=== PATIENT | male | born 1955 | race Caucasian/White ===

== ENCOUNTER 2020-10-17 08:54 | Outpatient (REF) | payer MEDICARE, MEDICAID, SELFPAY ==
--- NOTE | 2020-10-17 | US_ITS ---
EXAMINATION: US ABDOMEN COMPLETE CLINICAL INFORMATION: Alcoholic liver disease. COMPARISON: Abdominal ultrasound dated 06/07/2018 TECHNIQUE: Real-time imaging of the abdominal viscera. Technically difficult study secondary to body habitus and immobility. FINDINGS: PANCREAS: Obscured by overlying bowel gas ABDOMINAL AORTA: Unremarkable INFERIOR VENA CAVA: Visualized portions are normal. LIVER: There is some diffuse increased echogenicity of the liver consistent with fatty infiltration. The liver contour is normal. No focal hepatic lesion. There is no intrahepatic biliary duct dilatation seen. GALLBLADDER: Surgically absent. COMMON BILE DUCT: Not identified RIGHT KIDNEY: No hydronephrosis or renal calculi. The kidney measures 12.5 cm in maximum dimension. There is a simple appearing midpole cyst measuring 1.9 x 1.7 x 1.4 cm in size. LEFT KIDNEY: No hydronephrosis or renal calculi. The kidney measures 12.7 cm in maximum dimension. There is a simple appearing 2.9 x 2.3 x 2.5 cm cyst. SPLEEN: Normal. The spleen measures 12.6 cm in maximum dimension. FREE FLUID: None. US/US abdomen complete IMPRESSION: Bilateral renal cysts. Increased echogenicity of the liver consistent with fatty infiltration.
[2020-10-17 11:31] LABS: MANUAL DIFF FLAG NO
[2020-10-17 11:43] LABS: Basophils Percent Auto 0.5 % (0-2); Eosinophils Absolute Auto 0.3 X10*3/uL (0.0-0.4); Eosinophils Percent Auto 5.5 % (0-4); Hematocrit 44.6 % (42-52); Hemoglobin 14.8 g/dl (14.0-18.0); Imm Gran Abs Auto 0.06 X10*3/uL (0.00-0.03); Imm Gran Pct Auto 1.1 % (0.0-0.4); Lymphocytes Absolute Auto 1.7 X10*3/uL (1.2-4.9); Lymphocytes Percent Auto 29.3 % (20-40); Mean Corpuscular HGB Conc 33.2 g/dl (31.0-36.0); Mean Corpuscular Hemoglobin 32.5 pg (27.0-33.0); Monocytes Absolute Auto 0.5 X10*3/uL (0.1-1.2); Neutrophils Absolute Auto 3.1 X10*3/uL (2.0-8.3); Neutrophils Percent Auto 54.6 % (45-73); Platelet Count 205 X10*3/uL (160-400); Red Blood Count 4.55 X10*6/uL (4.60-5.80); Red Cell Distribution Width 11.4 % (11.0-16.0); White Blood Count 5.6 X10*3/uL (4.8-10.8)
[2020-10-17 11:49] LABS: Prothrombin Time 12.3 SEC (10.8-13.0)
[2020-10-17 12:15] LABS: Alanine Aminotransferase 47 U/L (0-40); Albumin Level 4.6 g/dL (3.5-5.0); Alkaline Phosphatase 64 U/L (39-117); Aspartate Amino Transferase 34 U/L (5-37); Bilirubin Direct 0.2 mg/dL (0.0-0.5); Bilirubin Total 0.5 mg/dL (0.0-1.0); Total Protein 7.4 g/dL (6.5-8.0)
[2020-10-19 12:53] LABS: Alpha Fetoprotein 1.9 ng/mL (<6.1)
== END 2020-10-17 08:55 | disposition home or self-care (01) ==
LOC: HO.US 08:54
PROVIDERS: PCP Internal Medicine; Visit Provider Internal Medicine
DX: K70.30 Alcoholic cirrhosis of liver without ascites (principal); K70.9 Alcoholic liver disease, unspecified; K70.0 Alcoholic fatty liver
CPT/HCPCS: 36415; 76700; 80076; 82105; 85025; 85610

== ENCOUNTER 2020-10-25 09:17 | Outpatient (REF) | payer MEDICARE, MEDICAID, SELFPAY | END 2020-10-25 09:18 | disposition home or self-care (01) | LOC: HO.HAP 09:17 | PROVIDERS: PCP Internal Medicine; Referring Provider Internal Medicine; Visit Provider Internal Medicine | DX: H90.3 Sensorineural hearing loss, bilateral (principal); Z46.1 Encounter for fitting and adjustment of hearing aid | CPT/HCPCS: 99499 ==

== ENCOUNTER 2020-12-12 11:09 | Outpatient (REF) | payer MEDICARE, MEDICAID, SELFPAY ==
--- NOTE | 2020-12-14 10:25 | MHC.AU.P13 ---
Adult Audiological Evaluation Date of Visit: 12/12/20 Help Desk Supervisor Used: Not Applicable Reason for Appointment: Audiologic re-evaluation due to perceived change in hearing ability. Samanta reports he is having difficulty hearing softer sounds and speech than he previously heard. Previous Hearing Test Results: 12/02/2019 [facility] Right ear - Borderline normal to mild sensorineural hearing loss Left ear - Moderate to severe mixed hearing loss. 96% speech discrimination bilaterally Medical History: Medical History: Medical History: History of head trauma with intracranial bleeding. Samanta reports he is taking a new medication, Horizant, for hand tremors. Parkinson's Disease is suspected, but not diagnosed at this time. Hearing Instrument History- Right Ear: Edge Sander: None Hearing Instrument History- Left Ear: Edge Sander: [employer] Model: Digital [place] V 50-13 Serial Number: [id number] Battery Size: 13 Dispensed By: [employer] [facility] Date of Fitting: January 2016 Otoscopy: Right Ear: Partially occluded with cerumen Left Ear: Unremarkable Tympanometry: Tympanometry performed due to: History of middle ear dysfunction Right Ear: Hypercompliant Middle Ear System (Type Ad) Left Ear: Normal Middle Ear System (Type A) Hearing Evaluation: Transducer(s) Used: Insert Earphones Bone Conduction Method: Conventional Audiometry Stimuli Used: Pure Tones Right Ear: Description of Hearing: Borderline normal to mild sensorineural hearing loss Left Ear: Description of Hearing: Moderate to severe mixed hearing loss Speech Recognition Threshold (SRT): Method Used: Not performed at today's visit. Word Discrimination: Method: Recorded Lists Word Lists Used: NU-6 Right Ear: 92% at 65 dB HL Left Ear: 84% at 85 dB HL Comparison: Compared to the most recent evaluation: Hearing is stable. Middle ear dysfunction persists in the right ear. Interpretation of Results: Hearing thresholds and word discrimination ability are stable. Question is increasing hearing difficulties may relate to the recent neurological changes being investigated. Recommendations: Audiological re-evaluation in one year. Hearing aid reprogrammed to Samanta's preference while in the office. He is advised to schedule another appointment if further adjustments are needed. Diagnosis: Primary Diagnosis: H90.3 Bilateral Sensorineural Hearing Loss Secondary Diagnosis: H69.91 Unspecified Eustachian Tube Dysfunction, Right Ear Services Performed: Comprehensive Audiological Evaluation (CPT 62167) Tympanometry (CPT 59735) Signature: Provider: Cisco White, [facility]
== END 2020-12-12 11:10 | disposition home or self-care (01) ==
LOC: HO.SH 11:09
PROVIDERS: Visit Provider Internal Medicine
DX: Z46.1 Encounter for fitting and adjustment of hearing aid (principal); H90.3 Sensorineural hearing loss, bilateral; H69.91 Unspecified Eustachian tube disorder, right ear
CPT/HCPCS: 92557; 92567; 99499

== ENCOUNTER 2020-12-12 14:16 | Outpatient (REF) | payer SELFPAY | END 2020-12-12 14:17 | disposition home or self-care (01) | LOC: HO.SH 14:16 | PROVIDERS: Visit Provider Internal Medicine | DX: Z46.1 Encounter for fitting and adjustment of hearing aid (principal) | CPT/HCPCS: V5267 ==

== ENCOUNTER 2021-01-09 13:27 | Outpatient (REF) | payer MEDICARE, MEDICAID, SELFPAY | END 2021-01-09 13:28 | disposition home or self-care (01) | LOC: HO.HAP 13:27 | PROVIDERS: Visit Provider Internal Medicine | DX: Z46.1 Encounter for fitting and adjustment of hearing aid (principal); H90.8 Mixed conductive and sensorineural hearing loss, unspecified | CPT/HCPCS: V5266 ==

== ENCOUNTER 2021-05-22 11:38 | Inpatient (IN) | payer MEDICARE, MEDICAID, SELFPAY ==
--- NOTE | ~2021-05-22 | CT_ITS ---
EXAMINATION: CT HEAD WITHOUT CONTRAST CLINICAL INFORMATION: Pre-ECT. Prior history intracranial hemorrhage with subdural. COMPARISON: CT head noncontrast 08/06/2010. TECHNIQUE: Contiguous axial imaging was performed from the skull base to vertex without intravenous administration of contrast. Additional 2-D coronal and sagittal reformatted images are generated on the CT workstation and uploaded to PACS. This CT examination was performed using dose optimization techniques as appropriate, variously including the following: *Automated exposure control *Adjustment of mA and/or kV according to patient size (this includes techniques or standardized protocols for targeted exams where dose is matched to indication/reason for exam; i.e. extremities or head) *Use of iterative reconstruction technique DLP: 1009 mGy-cm FINDINGS: Prior right craniotomy again noted. There is interval progressive generalized atrophic changes with asymmetric ventricular dilatation, greater on right. There is right periventricular white matter gliosis/scarring, symmetrically prominent cortical sulci and bilateral prominent fissures and cisterns. There is no mass effect or midline shift. No intracranial hemorrhage or hematoma or extra-axial fluid collection. Benign coarse calcification is seen in the ependyma posterior horn right ventricle and focal benign right dural calcification temporal region. There is no acute territorial infarct or mass lesion. The remainder of the calvarium is intact. There is no pneumocephalus or orbital emphysema. The sinuses and middle ears, and mastoids show no air-fluid levels. CT/CT head/brain wo con IMPRESSION: 1. Status post prior right craniotomy with scattered right periventricular white matter gliosis and compensatory right ventricular dilatation.. 2. Generalized atrophy with ventricular dilatation and prominent cortical sulci and fissures and cisterns. No edema or mass effect. 3. No intracranial hemorrhage or hematoma or extra-axial fluid collection.
[2021-05-22 11:43] VITALS: BP 135/88; PULSE 73; RESP 18; TEMP 36.8; O2SAT 94; BMI 26.4
--- NOTE | 2021-05-22 12:01 | ED_ITS ---
HPI - General Adult General Chief complaint: General Medical <MICHELE Acosta - Last Filed: 05/22/21 15:50> Stated complaint: medical clearance <MICHELE Acosta Last Filed: 05/22/21 15:50> Time Seen by Provider: 05/22/21 13:26 <MICHELE Acosta Last Filed: 05/22/21 15:50> Source: patient <MICHELE Acosta Last Filed: 05/22/21 15:50> Mode of arrival: ambulatory <MICHELE Acosta Last Filed: 05/22/21 15:50> Limitations: no limitations <MICHELE Acosta Last Filed: 05/22/21 15:50> History of Present Illness HPI narrative: patient presents to ED for medical clearance. Patient is a direct admit to the psych floor for depression and came to the ER for EKG and basic lab work. Patient states also chronic back pain exacerbation you to take NSAIDs. Patient denies any recent trauma to the back, IV drug use, urinary/ bowel incontinence, fever, or chills. <MICHELE Acosta Last Filed: 05/22/21 15:50> Related Data Home medications: Home Medications Medication Instructions Recorded Confirmed Tylenol 650 mg PO Q6-8H PRN 05/22/21 05/22/21 albuterol 90 mcg/actuation aerosol See Rx Instructions .ROUTE .COMPLEX 05/22/21 05/22/21 inhaler clotrimazole 1 % topical solution See Rx Instructions .ROUTE 05/22/21 05/22/21 .COMPLEX PRN dextromethorphan-guaifenesin 10 10 ml PO Q6-8H PRN 05/22/21 05/22/21 mg-200 mg/5 mL oral liquid docusate sodium 100 mg capsule 1 cap PO BID 05/22/21 05/22/21 docusate sodium 100 mg capsule See Rx Instructions .ROUTE 05/22/21 05/22/21 .COMPLEX PRN finasteride 5 mg tablet 1 tab PO DAILY 05/22/21 05/22/21 glycerin 1 drp OPHTHALMIC (EYE) Q1-2H PRN 05/22/21 05/22/21 latanoprost 0.005 % eye drops 1 drp OPHTHALMIC (EYE) DAILY 05/22/21 05/22/21 magnesium hydroxide 400 mg/5 mL 2,400 mg PO PRN 05/22/21 oral suspension (Milk of Magnesia) melatonin 5 mg tablet 5 mg PO BEDTIME 05/22/21 05/22/21 pyvjdccclycn-pxsuebih-sprvdf tablet 1 tab PO DAILY 05/22/21 05/22/21 polyethylene glycol 3350 17 17 g PO DAILY 05/22/21 05/22/21 gram/dose oral powder polyethylene glycol 3350 17 17 g PO DAILY PRN 05/22/21 05/22/21 gram/dose oral powder psyllium husk 0.4 gram capsule 0.4 g PO DAILY 05/22/21 05/22/21 (Metamucil) sodium phosphates 19 gram-7 118 ml MA DAILY PRN 05/22/21 05/22/21 gram/118 mL enema (Fleet Enema) trazodone 150 mg tablet 2 tab PO BEDTIME 05/22/21 05/22/21 Previous Rx's Medication Instructions Recorded amlodipine 2.5 mg tablet 7.5 mg PO DAILY 30 Days #90 tab 06/20/21 aripiprazole 5 mg tablet (Abilify) 7.5 mg PO DAILY 30 Days #45 tab 06/20/21 escitalopram oxalate 10 mg tablet 10 mg PO DAILY 30 Days #30 tab 06/20/21 gabapentin 300 mg capsule 300 mg PO TID 30 Days #90 cap 06/20/21 ibuprofen 400 mg tablet 400 mg PO Q6H PRN 30 Days #60 tab 06/20/21 lamotrigine 100 mg tablet 100 mg PO BID 30 Days #60 tab 06/20/21 lisinopril 40 mg tablet 40 mg PO DAILY 30 Days tab 06/20/21 lisinopril 40 mg tablet 40 mg PO DAILY 30 Days #30 tab 06/20/21 lorazepam 0.5 mg tablet 0.5 mg PO Q6H PRN 30 Days #120 tab 06/20/21 MDD 2 mg mirtazapine 30 mg tablet 30 mg PO BEDTIME 30 Days #30 tab 06/20/21 quetiapine 25 mg tablet 25 mg PO BID PRN 30 Days #60 tab 06/20/21 <MICHELE Acosta - Last Filed: 05/22/21 15:50> Allergies/adverse reactions: Allergies Allergy/AdvReac Type Severity Reaction Status Date / Time fentanyl [FENTANYL] Allergy Intermediate unknown Verified 05/22/21 11:43 <MICHELE Acosta Last Filed: 05/22/21 15:50> Review of Systems Review of Systems: Yes all other systems are reviewed and are negative <MICHELE Acosta Last Filed: 05/22/21 15:50> Constitutional: Constitutional: Reports as per HPI and Reports no additional constitutional complaints <MICHELE Acosta Last Filed: 05/22/21 15:50> Eyes: Eyes: Reports as per HPI and Reports no additional eye complaints <MICHELE Acosta Last Filed: 05/22/21 15:50> ENT: Reports system reviewed and no additional complaints, except as documented and Reports as per HPI <MICHELE Acosta Last Filed: 05/22/21 15:50> Cardiovascular: Cardiovascular: Reports as per HPI and Reports no additional cardiovascular complaints <MICHELE Acosta Last Filed: 05/22/21 15:50> Respiratory: Respiratory: Reports as per HPI and Reports no additional respiratory complaints <MICHELE Acosta Last Filed: 05/22/21 15:50> Gastrointestinal: Gastrointestinal: Reports as per HPI and Reports no additional gastrointestinal complaints <MICHELE Acosta Last Filed: 05/22/21 15:50> Genitourinary: Genitourinary: Reports no additional male genitourinary complaints and Reports as per HPI <MICHELE Acosta Last Filed: 05/22/21 15:50> Musculoskeletal: Musculoskeletal: Reports no additional musculoskeletal complaints, Reports as per HPI and Reports back pain ( Chronic) <MICHELE Acosta Last Filed: 05/22/21 15:50> Neurologic: Reports system reviewed and no additional complaints, except as documented and Reports as per HPI <MICHELE Acosta Last Filed: 05/22/21 15:50> Psychiatric: Psychiatric: Reports no additional psychiatric complaints and Reports as per HPI <MICHELE Acosta Last Filed: 05/22/21 15:50> PMFSH Past Medical History Medical History: Medical History Alcohol use disorder, severe, in sustained remission Cognitive and neurobehavioral dysfunction following brain injury Hernia HTN (hypertension) Major depressive disorder, recurrent Major depressive disorder, recurrent severe without psychotic features <MICHELE Acosta - Last Filed: 05/22/21 15:50> Surgical History: Surgical History H/O brain surgery History of hip replacement S/P cholecystectomy <MICHELE Acosta - Last Filed: 05/22/21 15:50> Social History Social History: Social History Household Members: Other Household Members Other:: 3 housemates in senior living Housing: Other Housing Other:: Long Term Patient Tobacco Use Status: Never used Tobacco Advance Directives Date on File: 05/27/19 service: No Sexual orientation: Straight/Heterosexual <MICHELE Acosta - Last Filed: 05/22/21 15:50> Physical Exam Vital Signs: Vital Signs: Last Vital Signs Temp 97.6 F 06/20/21 06:00 Pulse 58 06/20/21 06:00 Resp 06/20/21 06:00 BP 167/83 H 06/20/21 06:00 Pulse Ox 96 06/20/21 06:00 Body Mass Index 26.4 <MICHELE Aocsta - Last Filed: 05/22/21 15:50> Vital Signs: Last Vital Signs Temp 97.6 F 06/20/21 06:00 Pulse 58 06/20/21 06:00 Resp 06/20/21 06:00 BP 167/83 H 06/20/21 06:00 Pulse Ox 96 06/20/21 06:00 Body Mass Index 26.4 <Mayank Tellez MD - Last Filed: 06/26/21 16:25> Const: General: cooperative, healthy appearing, comfortable, no acute distress, well developed, alert, awake and Physically active <MICHELE Acosta - Last Filed: 05/22/21 15:50> HENMT: Head: Yes normal to inspection, Yes No palpable skull fracture present, Yes normocephalic, Yes atraumatic and Yes abrasion <MICHELE Acosta - Last Filed: 05/22/21 15:50> Eyes: General: appearance normal, both eyes and all related structures <MICHELE Acosta Last Filed: 05/22/21 15:50> Neck: Neck: Yes normal visual inspection, Yes full ROM, Yes no lymphadenopathy, Yes no meningeal signs, Yes trachea midline and Yes supple <MICHELE Acosta Last Filed: 05/22/21 15:50> Chest: Chest palpation & inspection: normal inspection of the chest and normal palpation of entire chest wall <MICHELE Acosta Last Filed: 05/22/21 15:50> GI: Inspection: Yes normal to inspection and No abdominal wall ecchymosis <MICHELE Acosta - Last Filed: 05/22/21 15:50> Palpation (GI): Firmness to palpation present (GI), nontender, no guarding and not rigid <MICHELE Acosta Last Filed: 05/22/21 15:50> : General: No CVA tenderness and Yes no CVA tenderness <MICHELE Acosta Last Filed: 05/22/21 15:50> Back/Spine/Pelvis: Back: no CVA tenderness, No CVA tenderness and back tenderness ( lumbar. chronic) <MICHELE Acosta Last Filed: 05/22/21 15:50> Skin: General skin exam: no rashes or lesions noted and elasticity normal <MICHELE Acosta Last Filed: 05/22/21 15:50> Neuro: General: patient oriented x3, gait normal, no meningeal signs and CN's II-XI intact bilaterally <MICHELE Acosta Last Filed: 05/22/21 15:50> Cranial nerves: Yes CN's II-XII intact bilaterally <MICHELE Acosta Last Filed: 05/22/21 15:50> Extrem: General: Yes normal to inspection and Yes full ROM <MICHELE Acosta Last Filed: 05/22/21 15:50> Psych: Appearance: grossly normal, well kempt and not disheveled <MICHELE Acosta Last Filed: 05/22/21 15:50> Course Course Course Narrative: patient will have labs drawn if normal will be sent to . <MICHELE Acosta Last Filed: 05/22/21 15:50> I have reviewed the chart <Mayank Tellez MD - Last Filed: 06/26/21 16:25> Reevaluation(s) Reevaluation #1: Patient medically cleared. Patient labs are normal. EKG negative STEMI <MICHELE Acosta - Last Filed: 05/22/21 15:50> Time: 14:14 <MICHELE Acosta - Last Filed: 05/22/21 15:50> Reevaluation #2: patient going up to [facility] for admission. <MICHELE Acosta - Last Filed: 05/22/21 15:50> Medical Decision Making MDM Narrative Medical decision making narrative: depression <MICHELE Acosta - Last Filed: 05/22/21 15:50> Lab Data Result diagrams: : 05/22/21 12:22 05/23/21 07:25 <MICHELE Acosta - Last Filed: 05/22/21 15:50> Labs: Lab Results 05/22/21 05/22/21 05/22/21 Range/Units 12:22 12:22 12:22 WBC 6.1 (4.8-10.8) X10*3/uL RBC 4.30 L (4.60-5.80) X10*6/uL Hgb 14.4 (14.0-18.0) g/dl Hct 42.3 (42-52) % MCV 98.4 H (80-98) fL MCH 33.5 H (27.0-33.0) pg MCHC 34.0 (31.0-36.0) g/dl RDW 11.4 (11.0-16.0) % Plt Count 159 L (160-400) X10*3/uL MPV 9.8 (9.4-12.4) fL Immature Gran % (Auto) 0.7 H (0.0-0.4) % Neut % (Auto) 59.8 (45-73) % Lymph % (Auto) 25.8 (20-40) % Larimer % (Auto) 8.9 (2-11) % Eos % (Auto) 4.3 H (0-4) % Baso % (Auto) 0.5 (0-2) % Lymph # (Auto) 1.6 (1.2-4.9) X10*3/uL [place] # (Auto) 0.5 (0.1-1.2) X10*3/uL Eos # (Auto) 0.3 (0.0-0.4) X10*3/uL Baso # (Auto) 0.0 (0.0-0.2) X10*3/uL Abs Immat Gran (auto) 0.04 H (0.00-0.03) X10*3/uL Absolute Neuts (auto) 3.6 (2.0-8.3) X10*3/uL Absolute Nucleated RBC 0.000 (0.0-0.012) X10*3/uL Nucleated RBC % (auto) 0.0 (0.0-0.2) /100WBC Sodium 139 (135-145) mmol/L Potassium 4.1 (3.3-5.1) mmol/L Chloride 105 (96-108) mmol/L Carbon Dioxide 24 (22-29) mmol/L Anion Gap 14 (12-20) BUN 13 (9-16) mg/dL Creatinine 0.86 (0.5-1.4) mg/dL Estim Creat Clear Calc 98.2 Estimated GFR > 60 Random Glucose 85 (60-115) mg/dL Calcium 9.4 (8.4-10.2) mg/dL Total Bilirubin 0.9 (0.0-1.0) mg/dL Direct Bilirubin 0.4 (0.0-0.5) mg/dL AST 26 (5-37) U/L ALT 45 H (0-40) U/L Alkaline Phosphatase 81 D (39-117) U/L Total Protein 6.8 (6.5-8.0) g/dL Albumin 4.4 (3.5-5.0) g/dL Ethyl Alcohol < 10 mg/dL COVID-19 (RACHEL) (Negative) COVID-19 Clin Com 05/22/21 Range/Units 14:25 WBC (4.8-10.8) X10*3/uL RBC (4.60-5.80) X10*6/uL Hgb (14.0-18.0) g/dl Hct (42-52) % MCV (80-98) fL MCH (27.0-33.0) pg MCHC (31.0-36.0) g/dl RDW (11.0-16.0) % Plt Count (160-400) X10*3/uL MPV (9.4-12.4) fL Immature Gran % (Auto) (0.0-0.4) % Neut % (Auto) (45-73) % Lymph % (Auto) (20-40) % [place] % (Auto) (2-11) % Eos % (Auto) (0-4) % Baso % (Auto) (0-2) % Lymph # (Auto) (1.2-4.9) X10*3/uL [place] # (Auto) (0.1-1.2) X10*3/uL Eos # (Auto) (0.0-0.4) X10*3/uL Baso # (Auto) (0.0-0.2) X10*3/uL Abs Immat Gran (auto) (0.00-0.03) X10*3/uL Absolute Neuts (auto) (2.0-8.3) X10*3/uL Absolute Nucleated RBC (0.0-0.012) X10*3/uL Nucleated RBC % (auto) (0.0-0.2) /100WBC Sodium (135-145) mmol/L Potassium (3.3-5.1) mmol/L Chloride (96-108) mmol/L Carbon Dioxide (22-29) mmol/L Anion Gap (12-20) BUN (9-16) mg/dL Creatinine (0.5-1.4) mg/dL Estim Creat Clear Calc Estimated GFR Random Glucose (60-115) mg/dL Calcium (8.4-10.2) mg/dL Total Bilirubin (0.0-1.0) mg/dL Direct Bilirubin (0.0-0.5) mg/dL AST (5-37) U/L ALT (0-40) U/L Alkaline Phosphatase (39-117) U/L Total Protein (6.5-8.0) g/dL Albumin (3.5-5.0) g/dL Ethyl Alcohol mg/dL COVID-19 (RACHEL) Negative (Negative) COVID-19 Clin Com See Note <MICHELE Acosta - Last Filed: 05/22/21 15:50> Lab Results 05/22/21 05/22/21 05/22/21 Range/Units 12:22 12:22 12:22 WBC 6.1 (4.8-10.8) X10*3/uL RBC 4.30 L (4.60-5.80) X10*6/uL Hgb 14.4 (14.0-18.0) g/dl Hct 42.3 (42-52) % MCV 98.4 H (80-98) fL MCH 33.5 H (27.0-33.0) pg MCHC 34.0 (31.0-36.0) g/dl RDW 11.4 (11.0-16.0) % Plt Count 159 L (160-400) X10*3/uL MPV 9.8 (9.4-12.4) fL Immature Gran % (Auto) 0.7 H (0.0-0.4) % Neut % (Auto) 59.8 (45-73) % Lymph % (Auto) 25.8 (20-40) % Larimer % (Auto) 8.9 (2-11) % Eos % (Auto) 4.3 H (0-4) % Baso % (Auto) 0.5 (0-2) % Lymph # (Auto) 1.6 (1.2-4.9) X10*3/uL [place] # (Auto) 0.5 (0.1-1.2) X10*3/uL Eos # (Auto) 0.3 (0.0-0.4) X10*3/uL Baso # (Auto) 0.0 (0.0-0.2) X10*3/uL Abs Immat Gran (auto) 0.04 H (0.00-0.03) X10*3/uL Absolute Neuts (auto) 3.6 (2.0-8.3) X10*3/uL Absolute Nucleated RBC 0.000 (0.0-0.012) X10*3/uL Nucleated RBC % (auto) 0.0 (0.0-0.2) /100WBC Sodium 139 (135-145) mmol/L Potassium 4.1 (3.3-5.1) mmol/L Chloride 105 (96-108) mmol/L Carbon Dioxide 24 (22-29) mmol/L Anion Gap 14 (12-20) BUN 13 (9-16) mg/dL Creatinine 0.86 (0.5-1.4) mg/dL Estim Creat Clear Calc 98.2 Estimated GFR > 60 Random Glucose 85 (60-115) mg/dL Calcium 9.4 (8.4-10.2) mg/dL Total Bilirubin 0.9 (0.0-1.0) mg/dL Direct Bilirubin 0.4 (0.0-0.5) mg/dL AST 26 (5-37) U/L ALT 45 H (0-40) U/L Alkaline Phosphatase 81 D (39-117) U/L Total Protein 6.8 (6.5-8.0) g/dL Albumin 4.4 (3.5-5.0) g/dL Ethyl Alcohol < 10 mg/dL COVID-19 (RACHEL) (Negative) COVID-19 Clin Com 05/22/21 Range/Units 14:25 WBC (4.8-10.8) X10*3/uL RBC (4.60-5.80) X10*6/uL Hgb (14.0-18.0) g/dl Hct (42-52) % MCV (80-98) fL MCH (27.0-33.0) pg MCHC (31.0-36.0) g/dl RDW (11.0-16.0) % Plt Count (160-400) X10*3/uL MPV (9.4-12.4) fL Immature Gran % (Auto) (0.0-0.4) % Neut % (Auto) (45-73) % Lymph % (Auto) (20-40) % Larimer % (Auto) (2-11) % Eos % (Auto) (0-4) % Baso % (Auto) (0-2) % Lymph # (Auto) (1.2-4.9) X10*3/uL Larimer # (Auto) (0.1-1.2) X10*3/uL Eos # (Auto) (0.0-0.4) X10*3/uL Baso # (Auto) (0.0-0.2) X10*3/uL Abs Immat Gran (auto) (0.00-0.03) X10*3/uL Absolute Neuts (auto) (2.0-8.3) X10*3/uL Absolute Nucleated RBC (0.0-0.012) X10*3/uL Nucleated RBC % (auto) (0.0-0.2) /100WBC Sodium (135-145) mmol/L Potassium (3.3-5.1) mmol/L Chloride (96-108) mmol/L Carbon Dioxide (22-29) mmol/L Anion Gap (12-20) BUN (9-16) mg/dL Creatinine (0.5-1.4) mg/dL Estim Creat Clear Calc Estimated GFR Random Glucose (60-115) mg/dL Calcium (8.4-10.2) mg/dL Total Bilirubin (0.0-1.0) mg/dL Direct Bilirubin (0.0-0.5) mg/dL AST (5-37) U/L ALT (0-40) U/L Alkaline Phosphatase (39-117) U/L Total Protein (6.5-8.0) g/dL Albumin (3.5-5.0) g/dL Ethyl Alcohol mg/dL COVID-19 (RACHEL) Negative (Negative) COVID-19 Clin Com See Note <Mayank Tellez MD - Last Filed: 06/26/21 16:25> Discharge Plan Discharge Clinical Impression: Depression <MICHELE Acosta - Last Filed: 05/22/21 15:50> Patient Disposition: Admitted As Inpatient <MICHELE Acosta - Last Filed: 05/22/21 15:50> Interventions: Admission Worksheet (ED) Last Done: 05/22/21 15:51 <MICHELE Acosta - Last Filed: 05/22/21 15:50> Discharge Date/Time: 05/22/21 16:08 <MICHELE Acosta - Last Filed: 05/22/21 15:50>
--- NOTE | 2021-05-22 12:02 | ECG_ITS ---
Test Reason : GENERAL MED Blood Pressure : / mmHG Vent. Rate : 067 BPM Atrial Rate : 067 BPM P-R Int : 190 ms QRS Dur : 102 ms QT Int : 430 ms P-R-T Axes : 027 -12 093 degrees QTc Int : 454 ms Normal sinus rhythm Nonspecific ST and T wave abnormality Borderline ECG When compared with ECG of 20-JAN-2011 11:28, No significant change was found Referred By: Anthony Paz Electronically Signed By:SUSHILA FISHER
[2021-05-22] MEDS: Ketorolac Tromethamine 30 MG/ML VIAL IM (12:25)
[2021-05-22 12:34] LABS: MANUAL DIFF FLAG NO
[2021-05-22 12:38] LABS: Basophils Percent Auto 0.5 % (0-2); Eosinophils Absolute Auto 0.3 X10*3/uL (0.0-0.4); Eosinophils Percent Auto 4.3 % (0-4); Hematocrit 42.3 % (42-52); Hemoglobin 14.4 g/dl (14.0-18.0); Imm Gran Abs Auto 0.04 X10*3/uL (0.00-0.03); Imm Gran Pct Auto 0.7 % (0.0-0.4); Lymphocytes Absolute Auto 1.6 X10*3/uL (1.2-4.9); Lymphocytes Percent Auto 25.8 % (20-40); Mean Corpuscular Hemoglobin 33.5 pg (27.0-33.0); Mean Corpuscular Volume 98.4 fL (80-98); Mean Platelet Volume 9.8 fL (9.4-12.4); Monocytes Absolute Auto 0.5 X10*3/uL (0.1-1.2); Monocytes Percent Auto 8.9 % (2-11); Neutrophils Absolute Auto 3.6 X10*3/uL (2.0-8.3); Neutrophils Percent Auto 59.8 % (45-73); Platelet Count 159 X10*3/uL (160-400); Red Cell Distribution Width 11.4 % (11.0-16.0); White Blood Count 6.1 X10*3/uL (4.8-10.8)
[2021-05-22 13:11] LABS: Ethanol < 10 mg/dL
[2021-05-22 13:15] LABS: Alanine Aminotransferase 45 U/L (0-40); Albumin Level 4.4 g/dL (3.5-5.0); Alkaline Phosphatase 81 U/L (39-117); Anion Gap 14 (12-20); Aspartate Amino Transferase 26 U/L (5-37); Bilirubin Direct 0.4 mg/dL (0.0-0.5); Bilirubin Total 0.9 mg/dL (0.0-1.0); Blood Urea Nitrogen 13 mg/dL (9-16); Calcium 9.4 mg/dL (8.4-10.2); Carbon Dioxide 24 mmol/L (22-29); Chloride 105 mmol/L (96-108); Creatinine Clr Calc Pharmacy 98.2; Estimated Glomerular Filt Rate > 60; Glucose Random 85 mg/dL (60-115); Potassium 4.1 mmol/L (3.3-5.1); Sodium 139 mmol/L (135-145); Total Protein 6.8 g/dL (6.5-8.0)
--- NOTE | 2021-05-22 13:31 | PC.NURSE ---
CALL TO S-1. PT MEDICALLY CLEARED
[2021-05-22 14:36] VITALS: BP 158/65; PULSE 71; RESP 16; O2SAT 98
--- NOTE | 2021-05-22 14:46 | PC.NURSE ---
On arrival to ED, patient endorsing SI, reports he has thought of many ways to kill himself. Denies taking any action to end his life. Indicating he feels safe in his current location. 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 Reports he has no active plan to hurt this person and does not own a gun.
[2021-05-22 14:50] LABS: COVID-19 Test Negative (Negative)
[2021-05-22 18:00] VITALS: BP 145/83; PULSE 67; TEMP 36.6; O2SAT 95
--- NOTE | 2021-05-22 21:37 | PC.ADMIT ---
Patient admitted onto the unit ~4:15pm; Patient of Dr. Haskins who was direct admit after being medically cleared in ER. Patient had an outpatient appt yesterday with psychiatrist and in agreement to come inpatient today; patient arranged for his transportation to the hospital today. Signed Conditional Voluntary, arrived onto unit via personal wheelchair. Patient lives in a [facility] residential in [place] for TBI, reports the residential as hell. Patient admitted with a diagnosis of Severe Depression and SI, patient reported thoughts of wanting to wheel his wheelchair into the road in the dark to be hit by a car or push himself in his wheel chair down an escalator. Patient reports a sense of relief being on the unit, and contracts for safety. Patient reported low frustration tolerance and increase in depression over recent months, I have no patience. None. I also have anger issues. reported feeling better being in the hospital and away from residential where he reports not necessarily feeling safe . Denies curent SI/HI during assessment. 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 Patient has slight delay with thought process, fully engaged in admission assessment, able to express himself and make needs known. Hx of ETOH Abuse, reports he no longer drinks. This RN spoke with Duy dempsey supervisor die casting from [facility] and electronically submitted current med list to the unit. Med Rec completed by this RN. Patient placed on 15 minute checks; oriented to the unit.
[2021-05-22] MEDS: LORazepam 0.5 MG TABLET PO (23:01)
[2021-05-22] MEDS: Mirtazapine 15 MG TABLET PO (23:02)
[2021-05-22] MEDS: traZODone HCL 100 MG TABLET 300 MG PO (23:02)
[2021-05-22] MEDS: Gabapentin 100 MG CAPSULE 200 MG PO (23:18)
[2021-05-22] MEDS: Acetaminophen 325 MG TABLET 650 MG PO (23:31)
[2021-05-23] MEDS: Latanoprost 0.005 % Ophth Sol 2.5 ML DROPS 1 DROP EYE-BOTH ×2 (01:23→09:27)
[2021-05-23] MEDS: Acetaminophen 325 MG TABLET 650 MG PO ×2 (05:36→20:57)
[2021-05-23 06:00] VITALS: BP 178/84; PULSE 54; RESP 20; TEMP 36.7; O2SAT 96
[2021-05-23 07:56] LABS: Alanine Aminotransferase 43 U/L (0-40); Albumin Level 4.2 g/dL (3.5-5.0); Alkaline Phosphatase 88 U/L (39-117); Anion Gap 12 (12-20); Aspartate Amino Transferase 26 U/L (5-37); Bilirubin Total 0.6 mg/dL (0.0-1.0); Blood Urea Nitrogen 16 mg/dL (9-16); Calcium 9.4 mg/dL (8.4-10.2); Carbon Dioxide 26 mmol/L (22-29); Chloride 106 mmol/L (96-108); Cholesterol 167 mg/dL; Creatinine Clr Calc Pharmacy 94.9; Estimated Glomerular Filt Rate > 60; Glucose Fasting 91 mg/dL (60-99); HDL Cholesterol 44 mg/dL; LDL Cholesterol Calculated 109 mg/dl; Magnesium 2.2 mg/dL (1.6-2.6); Sodium 140 mmol/L (135-145); Total Protein 6.5 g/dL (6.5-8.0); Triglycerides 74 mg/dL
[2021-05-23 08:16] LABS: Thyroid Stimulating Hormone 0.63 uIU/mL (0.32-4.0)
[2021-05-23 08:43] VITALS: BP 165/83; PULSE 69; RESP 18; TEMP 36.6; O2SAT 96
[2021-05-23 08:43] LABS: Folate 19.9 ng/mL (> or = 4.0); Vitamin B12 757 pg/mL (200-900)
[2021-05-23] MEDS: polyethylene glycoL 3350 17 GM POWD.PACK PO (08:44)
[2021-05-23 08:45] VITALS: BP 165/83; PULSE 69
[2021-05-23] MEDS: lisinopriL 10 MG TABLET PO (08:45)
[2021-05-23] MEDS: LORazepam 0.5 MG TABLET PO ×2 (08:45→16:52)
[2021-05-23] MEDS: ARIPiprazole 10 MG TABLET PO (08:45)
[2021-05-23] MEDS: Escitalopram Oxalate 10 MG TABLET PO (08:45)
[2021-05-23] MEDS: Gabapentin 100 MG CAPSULE 200 MG PO ×3 (08:45→21:02)
[2021-05-23] MEDS: Docusate Sodium 100 MG CAPSULE PO ×2 (08:45→21:02)
[2021-05-23] MEDS: Finasteride 5 MG TABLET PO (08:46)
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
[2021-05-23 18:00] VITALS: BP 161/93; PULSE 69; RESP 16; TEMP 36.4; O2SAT 96
[2021-05-23] MEDS: traZODone HCL 100 MG TABLET 300 MG PO (21:02)
[2021-05-23] MEDS: Mirtazapine 15 MG TABLET PO (21:03)
[2021-05-23] MEDS: LORazepam 1 MG TABLET PO (21:03)
[2021-05-24] MEDS: Acetaminophen 325 MG TABLET 650 MG PO ×3 (05:59→15:27)
[2021-05-24 06:00] VITALS: BP 159/78; PULSE 60; RESP 18; TEMP 36.4; O2SAT 97
[2021-05-24] MEDS: Docusate Sodium 100 MG CAPSULE PO ×2 (09:25→21:24)
[2021-05-24] MEDS: Gabapentin 100 MG CAPSULE 200 MG PO ×3 (09:26→21:25)
[2021-05-24] MEDS: lamoTRIgine 100 MG TABLET 200 MG PO (09:28)
[2021-05-24 09:30] VITALS: BP 159/87; PULSE 85
[2021-05-24] MEDS: ARIPiprazole 10 MG TABLET PO (09:30)
[2021-05-24] MEDS: LORazepam 0.5 MG TABLET PO ×2 (09:30→14:37)
[2021-05-24] MEDS: lisinopriL 10 MG TABLET PO (09:30)
[2021-05-24] MEDS: polyethylene glycoL 3350 17 GM POWD.PACK PO (09:31)
[2021-05-24] MEDS: Escitalopram Oxalate 10 MG TABLET PO (09:32)
[2021-05-24] MEDS: Finasteride 5 MG TABLET PO (09:32)
[2021-05-24 09:35] VITALS: BP 159/87; PULSE 85; O2SAT 95
[2021-05-24 09:37] VITALS: BP 159/87; PULSE 85; RESP 20; O2SAT 95
[2021-05-24] MEDS: Latanoprost 0.005 % Ophth Sol 2.5 ML DROPS 1 DROP EYE-BOTH (09:57)
--- NOTE | 2021-05-24 14:31 | P.CONIM_ITS ---
History of Present Illness Data of Consult Service Date: 05/24/21 Primary Care Provider: Wilmer Enciso MD HPI Reason for consult: htn, pre-ect 65M admitted for depression, consult requested for optimizationa and risk stratefication prior to ECT. patient has history of TBI and subdural hematoma. he also has HTN which has not been well controlled recently. reports BPs in the 160s to 190s. otherwise denies chest pain, had a negative stress test about one year ago. denies sob. Review of Systems Cardiovascular: Cardiovascular: Reports no additional cardiovascular complaints Respiratory: Respiratory: Reports no additional respiratory complaints Gastrointestinal: Gastrointestinal: Reports no additional gastrointestinal complaints [facility] Medical History (Updated 05/24/21 @ 14:33 by Eliezer Khalil MD) Hernia HTN (hypertension) Family history: reviewed and not pertinent Surgical History H/O brain surgery History of hip replacement S/P cholecystectomy Social History Household Members: Other Household Members Other:: 3 housemates in care home Housing: Other Housing Other:: Halfway Patient Tobacco Use Status: Never used Tobacco service: No Sexual orientation: Straight/Heterosexual Meds Allergies Allergy/AdvReac Type Severity Reaction Status Date / Time fentanyl [FENTANYL] Allergy Intermediate unknown Verified 05/22/21 11:43 Active Medications: Current Medications Generic Name Dose Route Start Last Admin Trade Name Freq PRN Reason Stop Dose Admin Acetaminophen 650 mg 05/22/21 17:28 05/24/21 09:56 Acetaminophen 325 Mg Tablet PO 650 mg Q6H PRN Administration Headache/Pain Mild Scale (1-3) Al Hydroxide/Mg Hydroxide 30 ml 05/22/21 17:28 Magnesium Hydrox/Alum Hydrox 30 Ml Oral.Susp PO Q6H PRN Heartburn/Nausea Albuterol Sulfate 2 puff 05/22/21 22:00 Albuterol Sulfate 90 Mcg 8 Gm Inhaler INHALE Q6H PRN Shortness of Breath/Wheezing Aripiprazole 10 mg 05/23/21 09:00 05/24/21 09:30 Aripiprazole 10 Mg Tablet PO 10 mg DAILY TAZ Administration Docusate Sodium 100 mg 05/23/21 09:00 05/24/21 09:25 Docusate Sodium 100 Mg Capsule PO 100 mg BID TAZ Administration Escitalopram Oxalate 10 mg 05/23/21 09:00 05/24/21 09:32 Escitalopram Oxalate 10 Mg Tablet PO 10 mg DAILY TAZ Administration Finasteride 5 mg 05/23/21 09:00 05/24/21 09:32 Finasteride 5 Mg Tablet PO 5 mg DAILY TAZ Administration Gabapentin 200 mg 05/22/21 22:00 05/24/21 09:26 Gabapentin 100 Mg Capsule PO 200 mg TID TAZ Administration Lamotrigine 200 mg 05/23/21 09:00 05/24/21 09:28 Lamotrigine 100 Mg Tablet PO 200 mg DAILY TAZ Administration Latanoprost 1 drop 05/22/21 23:45 05/24/21 09:57 Latanoprost 0.005 % Ophth No 2.5 Ml Drops EYE-BOTH 1 drop DAILY TAZ Administration Lisinopril 10 mg 05/23/21 09:00 05/24/21 09:30 Lisinopril 10 Mg Tablet PO 10 mg DAILY TAZ Administration Protocol Lorazepam 0.5 mg 05/23/21 09:00 05/24/21 09:30 Lorazepam 0.5 Mg Tablet PO 0.5 mg DAILY TAZ Administration Lorazepam 0.5 mg 05/22/21 21:44 05/23/21 08:45 Lorazepam 0.5 Mg Tablet PO 0.5 mg DAILY PRN Administration Anxiety Lorazepam 1 mg 05/23/21 21:00 05/23/21 21:03 Lorazepam 1 Mg Tablet PO 1 mg BEDTIME TAZ Administration Magnesium Hydroxide 30 ml 05/22/21 17:28 Milk Of Magnesia 30 Ml Oral.Susp PO DAILY PRN Constipation Mirtazapine 15 mg 05/22/21 22:15 05/23/21 21:03 Mirtazapine 15 Mg Tablet PO 15 mg BEDTIME TAZ Administration Multivitamins/Minerals 1 tab 05/23/21 09:00 05/24/21 09:31 Multivitamin With Minerals Tablet PO 1 tab DAILY TAZ Administration Polyethylene Glycol 17 gm 05/23/21 09:00 05/24/21 09:31 Polyethylene Glycol 3350 17 Gm Powd.Pack PO 17 gm DAILY TAZ Administration Sodium Biphosphate/Sodium Phosphate 118 ml 05/22/21 21:38 Sodium Phosphate,[place]-Dibasic 133 Ml Enema MD DAILY PRN Constipation Trazodone HCl 300 mg 05/22/21 22:00 05/23/21 21:02 Trazodone Hcl 100 Mg Tablet PO 300 mg BEDTIME TAZ Administration Home Medications Medication Instructions Recorded Confirmed Last Taken Type Tylenol 650 mg PO Q6-8H PRN 05/22/21 05/22/21 Unknown History Tylenol Arthritis Pain 650 mg PO DAILY 05/22/21 05/22/21 Unknown History albuterol [Ventolin] See Rx Instructions .ROUTE .COMPLEX 05/22/21 05/22/21 Unknown History amantadine HCl 1 tab PO BID 05/22/21 05/22/21 Unknown History aripiprazole 1 tab PO DAILY 05/22/21 05/22/21 Unknown History clotrimazole See Rx Instructions .ROUTE 05/22/21 05/22/21 Unknown History .COMPLEX PRN dextromethorphan-guaifenesin 10 ml PO Q6-8H PRN 05/22/21 05/22/21 Unknown History [Robitussin DM Max] docusate sodium 1 cap PO BID 05/22/21 05/22/21 Unknown History docusate sodium See Rx Instructions .ROUTE 05/22/21 05/22/21 Unknown History .COMPLEX PRN escitalopram oxalate 1 tab PO DAILY 05/22/21 05/22/21 Unknown History finasteride 1 tab PO DAILY 05/22/21 05/22/21 Unknown History gabapentin enacarbil [Horizant] 1 tab PO BID 05/22/21 05/22/21 Unknown History glycerin [Artificial Tears 1 drp OPHTHALMIC (EYE) Q1-2H PRN 05/22/21 05/22/21 Unknown History (glycerin)] lamotrigine 1 tab PO DAILY 05/22/21 05/22/21 Unknown History lamotrigine 1 tab PO DAILY 05/22/21 05/22/21 Unknown History latanoprost 1 drp OPHTHALMIC (EYE) DAILY 05/22/21 05/22/21 Unknown History lisinopril 1 tab PO DAILY 05/22/21 05/22/21 Unknown History lorazepam 1 tab PO DAILY 05/22/21 05/22/21 Unknown History lorazepam 1 tab PO DAILY 05/22/21 05/22/21 Unknown History lorazepam 1 tab PO DAILY PRN 05/22/21 05/22/21 Unknown History magnesium hydroxide [Milk of 2,400 mg PO PRN 05/22/21 Unknown History Magnesia] melatonin 5 mg PO BEDTIME 05/22/21 05/22/21 Unknown History cfzcodxkrrze-vhijfnsi-mliszd 1 tab PO DAILY 05/22/21 05/22/21 Unknown History [Centrum Silver] polyethylene glycol 3350 17 g PO DAILY 05/22/21 05/22/21 Unknown History polyethylene glycol 3350 17 g PO DAILY PRN 05/22/21 05/22/21 Unknown History psyllium husk [Metamucil] 0.4 g PO DAILY 05/22/21 05/22/21 Unknown History sodium phosphates [Fleet Enema] 118 ml MD DAILY PRN 05/22/21 05/22/21 Unknown History trazodone 2 tab PO BEDTIME 05/22/21 05/22/21 Unknown History Physical Exam Vital Signs and Narrative: Vital Signs: Last Vital Signs Temp 97.5 F 05/24/21 06:00 Pulse 85 05/24/21 09:37 Resp 20 05/24/21 09:37 BP 159/87 H 05/24/21 09:37 Pulse Ox 95 05/24/21 09:37 Body Mass Index 26.4 General: AO X 3, no acute distress Resp: CTA bilateral CVS: S1,S2,RRR GI: soft, non tender, non distended Psych: appropriate affect Results Labs CBC and Chem 7: 05/22/21 12:22 05/23/21 07:25 Assessment and Plan (1) HTN (hypertension): Status: Acute 65M conuslt for ECT follow up CT head if no signs of increased Intracranial pressures, would pursue ECT as planned, benefits outweigh risks HTN poorly controlled will increase lisinopril to 20mg daily add amlodipine 5mg daily.
[2021-05-24 18:49] VITALS: BP 118/69; PULSE 80; RESP 18; TEMP 36.6; O2SAT 95
[2021-05-24] MEDS: Mirtazapine 15 MG TABLET PO (21:24)
[2021-05-24] MEDS: traZODone HCL 100 MG TABLET 300 MG PO (21:25)
[2021-05-24] MEDS: LORazepam 1 MG TABLET PO (21:25)
--- NOTE | 2021-05-24 23:22 | HO.PSYCHPN ---
Subjective Subjective Date of Service: 05/24/21 Reason For Visit: Depression SI Subjective Notes: Conditional Voluntary Healthcare Proxy: No Guardianship: No Interim History: Patient seen in psychiatric follow-up patient is flat depressed ruminating on losses and his current living situation. Has not responded to mirtazapine Lexapro Abilify. He is agreeable to a course of ECT risks benefits alternatives reviewed. Case also reviewed with Dr. cruz more on a Medication Compliance: Yes Mental Status Exam Mental Status Exam Narrative: Alert, awake, cooperative, in a wheel-chair. He had good eye contact, speech was spontaneous with normal tone, his vocabulary was very good. Mood dysphoric, affect constricted but appropriated. Thought process logical and goal directed, thought content over-inclussive at times but no evidence of paranoia, delusions or hallucinations. Patient despondent hopeless helpless preoccupied with the loss of his brother He admitted suicidal thoughts, he denies homicidal thoughts. Insight good, judgment fair, impulse control limited. Patient denies active suicidal plan in this setting he is agreeable to trial of ECT. He is hopeful not to return to same living arrangement Diagnostics Vital Signs (24Hr): Vital Signs - 24 hr 05/24/21 06:00 05/24/21 09:30 05/24/21 09:35 Temperature 97.5 F Pulse Rate 60 85 85 Respiratory Rate 18 Blood Pressure 159/78 H 159/87 H 159/87 H Pulse Oximetry 97 95 05/24/21 09:37 05/24/21 18:49 Temperature 97.8 F Pulse Rate 85 80 Respiratory Rate 20 18 Blood Pressure 159/87 H 118/69 Pulse Oximetry 95 95 Body Mass Index 26.4 Labs Results: 05/22/21 12:22 05/23/21 07:25 Labs: Laboratory Results - last 48 hr 05/23/21 05/23/21 07:25 07:25 Sodium 140 Potassium 4.0 Chloride 106 Carbon Dioxide 26 Anion Gap 12 BUN 16 Creatinine 0.89 Estim Creat Clear Calc 94.9 Estimated GFR > 60 Fasting Glucose 91 Calcium 9.4 Magnesium 2.2 Total Bilirubin 0.6 AST 26 ALT 43 H Alkaline Phosphatase 88 Total Protein 6.5 Albumin 4.2 Triglycerides 74 Cholesterol 167 LDL Cholesterol, Calc 109 HDL Cholesterol 44 Vitamin B12 757 Folate 19.9 TSH 0.63 Free T4 0.90 Imaging Radiology Impressions: ITS Impressions Head CT 05/24/21 15:15 IMPRESSION: 1. Status post prior right craniotomy with scattered right periventricular white matter gliosis and compensatory right ventricular dilatation.. 2. Generalized atrophy with ventricular dilatation and prominent cortical sulci and fissures and cisterns. No edema or mass effect. 3. No intracranial hemorrhage or hematoma or extra-axial fluid collection. Medications Medications Current Medications Generic Name Dose Route Start Last Admin Trade Name Freq PRN Reason Stop Dose Admin Acetaminophen 650 mg 05/22/21 17:28 05/24/21 15:27 Acetaminophen 325 Mg Tablet PO 650 mg Q6H PRN Administration Headache/Pain Mild Scale (1-3) Al Hydroxide/Mg Hydroxide 30 ml 05/22/21 17:28 Magnesium Hydrox/Alum Hydrox 30 Ml Oral.Susp PO Q6H PRN Heartburn/Nausea Albuterol Sulfate 2 puff 05/22/21 22:00 Albuterol Sulfate 90 Mcg 8 Gm Inhaler INHALE Q6H PRN Shortness of Breath/Wheezing Amlodipine Besylate 5 mg 05/25/21 09:00 Amlodipine Besylate 5 Mg Tablet PO DAILY [facility] Protocol Aripiprazole 10 mg 05/23/21 09:00 05/24/21 09:30 Aripiprazole 10 Mg Tablet PO 10 mg DAILY TAZ Administration Docusate Sodium 100 mg 05/23/21 09:00 05/24/21 21:24 Docusate Sodium 100 Mg Capsule PO 100 mg BID TAZ Administration Escitalopram Oxalate 10 mg 05/23/21 09:00 05/24/21 09:32 Escitalopram Oxalate 10 Mg Tablet PO 10 mg DAILY TAZ Administration Finasteride 5 mg 05/23/21 09:00 05/24/21 09:32 Finasteride 5 Mg Tablet PO 5 mg DAILY TAZ Administration Gabapentin 200 mg 05/22/21 22:00 05/24/21 21:25 Gabapentin 100 Mg Capsule PO 200 mg TID TAZ Administration Lamotrigine 200 mg 05/23/21 09:00 05/24/21 09:28 Lamotrigine 100 Mg Tablet PO 200 mg DAILY TAZ Administration Latanoprost 1 drop 05/22/21 23:45 05/24/21 09:57 Latanoprost 0.005 % Ophth No 2.5 Ml Drops EYE-BOTH 1 drop DAILY TAZ Administration Lisinopril 20 mg 05/25/21 09:00 Lisinopril 20 Mg Tablet PO DAILY TAZ Protocol Lorazepam 0.5 mg 05/23/21 09:00 05/24/21 09:30 Lorazepam 0.5 Mg Tablet PO 0.5 mg DAILY TAZ Administration Lorazepam 0.5 mg 05/22/21 21:44 05/24/21 14:37 Lorazepam 0.5 Mg Tablet PO 0.5 mg DAILY PRN Administration Anxiety Lorazepam 1 mg 05/23/21 21:00 05/24/21 21:25 Lorazepam 1 Mg Tablet PO 1 mg BEDTIME TAZ Administration Magnesium Hydroxide 30 ml 05/22/21 17:28 Milk Of Magnesia 30 Ml Oral.Susp PO DAILY PRN Constipation Mirtazapine 15 mg 05/22/21 22:15 05/24/21 21:24 Mirtazapine 15 Mg Tablet PO 15 mg BEDTIME TAZ Administration Multivitamins/Minerals 1 tab 05/23/21 09:00 05/24/21 09:31 Multivitamin With Minerals Tablet PO 1 tab DAILY TAZ Administration Polyethylene Glycol 17 gm 05/23/21 09:00 05/24/21 09:31 Polyethylene Glycol 3350 17 Gm Powd.Pack PO 17 gm DAILY TAZ Administration Sodium Biphosphate/Sodium Phosphate 118 ml 05/22/21 21:38 Sodium Phosphate,[place]-Dibasic [address] DAILY PRN Constipation Trazodone HCl 300 mg 05/22/21 22:00 05/24/21 21:25 Trazodone Hcl 100 Mg Tablet PO 300 mg BEDTIME TAZ Administration Allergies Allergies Allergy/AdvReac Type Severity Reaction Status Date / Time fentanyl [FENTANYL] Allergy Intermediate unknown Verified 05/22/21 11:43 Assessment & Plan Assessment & Plan (1) HTN (hypertension): Status: Acute Code(s): I10 - Essential (primary) hypertension (2) Major depressive disorder, recurrent severe without psychotic features: Status: Acute Code(s): F33.2 - Major depressive disorder, recurrent severe without psychotic features (3) Cognitive and neurobehavioral dysfunction following brain injury: Status: Acute Code(s): G31.89 - Other specified degenerative diseases of nervous system; F09 - Unspecified mental disorder due to known physiological condition; S06.9X9S - Unspecified intracranial injury with loss of consciousness of unspecified duration, sequela Assessment and Plan: Patient is a 65-year-old male admitted with severe recurrent depression treatment resistant with intrusive suicidal thoughts. Patient agreeable to ECT medical evaluation for ECT and head CT scan completed. No evidence of increased intracranial pressure. Would use right unilateral low pulse with technique risks benefits alternatives reviewed with patient. Hopefully with adequate treatment patient will be better able to function make decisions regarding placement and living issues and improve quality of life. Monitor cognitive response to ECT may need only twice a week treatment. Greater than 50% of the session was spent on counseling and/or coordination of care Reason for contiued inpatient stay Substantial Risk for: harm to self, inability to function and rapid decompensation
[2021-05-25 06:00] VITALS: BP 160/88; PULSE 58; RESP 18; TEMP 36.2; O2SAT 97
[2021-05-25] MEDS: Acetaminophen 325 MG TABLET 650 MG PO (06:13)
[2021-05-25] MEDS: LORazepam 0.5 MG TABLET PO ×2 (09:00→15:07)
[2021-05-25 09:01] VITALS: BP 144/79; PULSE 75
[2021-05-25] MEDS: lisinopriL 20 MG TABLET PO (09:01)
[2021-05-25] MEDS: ARIPiprazole 10 MG TABLET PO (09:02)
[2021-05-25] MEDS: Gabapentin 100 MG CAPSULE 200 MG PO ×2 (09:03→14:58)
[2021-05-25 09:05] VITALS: BP 144/79; PULSE 75
[2021-05-25] MEDS: amLODIPine Besylate 5 MG TABLET PO (09:05)
[2021-05-25] MEDS: Docusate Sodium 100 MG CAPSULE PO ×2 (09:06→21:04)
[2021-05-25] MEDS: lamoTRIgine 100 MG TABLET PO (09:07)
[2021-05-25] MEDS: Escitalopram Oxalate 10 MG TABLET PO (09:07)
[2021-05-25] MEDS: Finasteride 5 MG TABLET PO (09:14)
--- NOTE | 2021-05-25 15:20 | P.PNPSI_ITS ---
Subjective Subjective Date of Service: 05/25/21 Reason For Visit: Depression SI Interim History: Chart reviewed. Pt agrees to ECT. I answered some Qs re ECT. Severe MDD . He acknowledges SI but safe here. Very insightful re MDD and Rx options. Case DW Dr GLOD re med changes/ ECT electrode placement / strategies to reduce post ECT confusion. Decrease gabapentin. Review of Systems Review of Systems Yes all other systems are reviewed and are negative Constitutional: Reports as per HPI and Reports no additional constitutional com plaints Eyes: Reports as per HPI and Reports no additional eye complaints Reports system reviewed and no additional complaints, except as documented and Reports as per HPI Cardiovascular: Reports as per HPI and Reports no additional cardiovascular complaints Respiratory: Reports as per HPI and Reports no additional respiratory complaints Gastrointestinal: Reports as per HPI and Reports no additional gastrointestinal complaints Genitourinary: Reports no additional male genitourinary complaints and Reports as per HPI Musculoskeletal: Reports no additional musculoskeletal complaints, Reports as per HPI and Reports back pain ( Chronic) Reports system reviewed and no additional complaints, except as documented and Reports as per HPI Psychiatric: Reports no additional psychiatric complaints and Reports as per HPI Mental Status Exam Mental Status Exam Narrative: Alert, awake, cooperative, in a wheel-chair. He had good eye contact, speech was spontaneous with normal tone, his vocabulary was very good. Mood dysphoric, affect constricted but appropriated. Thought process logical and goal directed, thought content over-inclussive at times but no evidence of paranoia, delusions or hallucinations. Patient despondent hopeless helpless preoccupied with the loss of his brother He admitted suicidal thoughts, he denies homicidal thoughts. Insight good, judgment fair, impulse control limited. Patient denies active suicidal plan in this setting he is agreeable to trial of ECT. He is hopeful not to return to same living arrangement Diagnostics Vital Signs (24Hr): Vital Signs - 24 hr 05/24/21 18:49 05/25/21 06:00 05/25/21 09:01 Temperature 97.8 F 97.2 F Pulse Rate 80 58 75 Respiratory Rate 18 18 Blood Pressure 118/69 160/88 H 144/79 H Pulse Oximetry 95 97 05/25/21 09:05 Temperature Pulse Rate 75 Respiratory Rate Blood Pressure 144/79 H Pulse Oximetry Body Mass Index 26.4 Labs Results: 05/22/21 12:22 05/23/21 07:25 Imaging Radiology Impressions: ITS Impressions Head CT 05/24/21 15:15 IMPRESSION: 1. Status post prior right craniotomy with scattered right periventricular white matter gliosis and compensatory right ventricular dilatation.. 2. Generalized atrophy with ventricular dilatation and prominent cortical sulci and fissures and cisterns. No edema or mass effect. 3. No intracranial hemorrhage or hematoma or extra-axial fluid collection. Medications Medications Current Medications Generic Name Dose Route Start Last Admin Trade Name Freq PRN Reason Stop Dose Admin Acetaminophen 650 mg 05/22/21 17:28 05/25/21 06:13 Acetaminophen 325 Mg Tablet PO 650 mg Q6H PRN Administration Headache/Pain Mild Scale (1-3) Al Hydroxide/Mg Hydroxide 30 ml 05/22/21 17:28 Magnesium Hydrox/Alum Hydrox 30 Ml Oral.Susp PO Q6H PRN Heartburn/Nausea Albuterol Sulfate 2 puff 05/22/21 22:00 Albuterol Sulfate 90 Mcg 8 Gm Inhaler INHALE Q6H PRN Shortness of Breath/Wheezing Amlodipine Besylate 5 mg 05/25/21 09:00 05/25/21 09:05 Amlodipine Besylate 5 Mg Tablet PO 5 mg DAILY TAZ Administration Protocol Aripiprazole 10 mg 05/23/21 09:00 05/25/21 09:02 Aripiprazole 10 Mg Tablet PO 10 mg DAILY TAZ Administration Docusate Sodium 100 mg 05/23/21 09:00 05/25/21 09:06 Docusate Sodium 100 Mg Capsule PO 100 mg BID TAZ Administration Escitalopram Oxalate 10 mg 05/23/21 09:00 05/25/21 09:07 Escitalopram Oxalate 10 Mg Tablet PO 10 mg DAILY TAZ Administration Finasteride 5 mg 05/23/21 09:00 05/25/21 09:14 Finasteride 5 Mg Tablet PO 5 mg DAILY TAZ Administration Gabapentin 200 mg 05/22/21 22:00 05/25/21 14:58 Gabapentin 100 Mg Capsule PO 200 mg TID TAZ Administration Lamotrigine 100 mg 05/25/21 09:00 05/25/21 09:07 Lamotrigine 100 Mg Tablet PO 100 mg DAILY TAZ Administration Latanoprost 1 drop 05/22/21 23:45 05/24/21 09:57 Latanoprost 0.005 % Ophth No 2.5 Ml Drops EYE-BOTH 1 drop DAILY TAZ Administration Lisinopril 20 mg 05/25/21 09:00 05/25/21 09:01 Lisinopril 20 Mg Tablet PO 20 mg DAILY TAZ Administration Protocol Lorazepam 0.5 mg 05/23/21 09:00 05/25/21 09:00 Lorazepam 0.5 Mg Tablet PO 0.5 mg DAILY TAZ Administration Lorazepam 0.5 mg 05/22/21 21:44 05/25/21 15:07 Lorazepam 0.5 Mg Tablet PO 0.5 mg DAILY PRN Administration Anxiety Lorazepam 1 mg 05/23/21 21:00 05/24/21 21:25 Lorazepam 1 Mg Tablet PO 1 mg BEDTIME TAZ Administration Magnesium Hydroxide 30 ml 05/22/21 17:28 Milk Of Magnesia 30 Ml Oral.Susp PO DAILY PRN Constipation Mirtazapine 15 mg 05/22/21 22:15 05/24/21 21:24 Mirtazapine 15 Mg Tablet PO 15 mg BEDTIME TAZ Administration Multivitamins/Minerals 1 tab 05/23/21 09:00 05/25/21 09:04 Multivitamin With Minerals Tablet PO 1 tab DAILY TAZ Administration Polyethylene Glycol 17 gm 05/25/21 17:00 Polyethylene Glycol 3350 17 Gm Powd.Pack PO DAILY@1700 TAZ Sodium Biphosphate/Sodium Phosphate 118 ml 05/22/21 21:38 Sodium Phosphate,[place]-Dibasic 133 Ml Enema [place] DAILY PRN Constipation Trazodone HCl 300 mg 05/22/21 22:00 05/24/21 21:25 Trazodone Hcl 100 Mg Tablet PO 300 mg BEDTIME TAZ Administration Allergies Allergies Allergy/AdvReac Type Severity Reaction Status Date / Time fentanyl [FENTANYL] Allergy Intermediate unknown Verified 05/22/21 11:43 Assessment & Plan Assessment & Plan (1) HTN (hypertension): Status: Acute Code(s): I10 - Essential (primary) hypertension (2) Major depressive disorder, recurrent severe without psychotic features: Status: Acute Code(s): F33.2 - Major depressive disorder, recurrent severe without psychotic features (3) Cognitive and neurobehavioral dysfunction following brain injury: Status: Acute Code(s): G31.89 - Other specified degenerative diseases of nervous system; F09 - Unspecified mental disorder due to known physiological condition; S06.9X9S - Unspecified intracranial injury with loss of consciousness of unspecified dur ation, sequela Assessment and Plan: Patient is a 65-year-old male admitted with severe recurrent depression treatment resistant with intrusive suicidal thoughts. Patient agreeable to ECT medical evaluation for ECT and head CT scan completed. No evidence of increased intracranial pressure. Would use right unilateral low pulse with technique risks benefits alternatives reviewed with patient. Hopefully with adequate treatment patient will be better able to function make decisions regarding placement and living issues and improve quality of life. Monitor cognitive response to ECT may need only twice a week treatment. Greater than 50% of the session was spent on counseling and/or coordination of care Reason for contiued inpatient stay Substantial Risk for: harm to self
[2021-05-25] MEDS: Latanoprost 0.005 % Ophth Sol 2.5 ML DROPS 1 DROP EYE-BOTH (15:52)
[2021-05-25] MEDS: polyethylene glycoL 3350 17 GM POWD.PACK PO (15:53)
[2021-05-25 18:00] VITALS: PULSE 85; RESP 16; TEMP 36.4; O2SAT 96
[2021-05-25] MEDS: Mirtazapine 15 MG TABLET PO (21:04)
[2021-05-25] MEDS: LORazepam 1 MG TABLET PO (21:04)
[2021-05-25] MEDS: traZODone HCL 100 MG TABLET 300 MG PO (21:04)
[2021-05-26] MEDS: Acetaminophen 325 MG TABLET 650 MG PO (05:22)
[2021-05-26 05:30] VITALS: BP 123/60; PULSE 65; RESP 20; TEMP 37.2; O2SAT 95
[2021-05-26 05:31] VITALS: BP 123/60; PULSE 65; RESP 20; TEMP 37.2; O2SAT 95
--- NOTE | 2021-05-26 07:22 | P.PNPSI_ITS ---
Subjective Subjective Date of Service: 05/26/21 Reason For Visit: Depression SI Interim History: 05/25:Chart reviewed. Pt agrees to ECT. I answered some Qs re ECT. Severe MDD . He acknowledges SI but safe here. Very insightful re MDD and Rx options. Case DANY GOLD re med changes/ ECT electrode placement / strategies to reduce post ECT confusion. Decrease gabapentin. 05/26: Anxious about ECT. Asked X questions. Case DW Dr GOLD. Pt is addon tomorrow. Ct plan Review of Systems Review of Systems Yes all other systems are reviewed and are negative Constitutional: Reports as per HPI and Reports no additional constitutional complaints Eyes: Reports as per HPI and Reports no additional eye complaints Reports system reviewed and no additional complaints, except as documented and Reports as per HPI Cardiovascular: Reports as per HPI and Reports no additional cardiovascular complaints Respiratory: Reports as per HPI and Reports no additional respiratory complaints Gastrointestinal: Reports as per HPI and Reports no additional gastrointestinal complaints Genitourinary: Reports no additional male genitourinary complaints and Reports as per HPI Musculoskeletal: Reports no additional musculoskeletal complaints, Reports as per HPI and Reports back pain ( Chronic) Reports system reviewed and no additional complaints, except as documented and Reports as per HPI Psychiatric: Reports no additional psychiatric complaints and Reports as per HPI Mental Status Exam Mental Status Exam Narrative: Alert, awake, cooperative, in a wheel-chair. He had good eye contact, speech was spontaneous with normal tone, his vocabulary was very good. Mood dysphoric, affect constricted but appropriated. Thought process logical and goal directed, thought content over-inclussive at times but no evidence of paranoia, delusions or hallucinations. Patient despondent hopeless helpless preoccupied with the loss of his brother He admitted suicidal thoughts, he denies homicidal thoughts. Insight good, judgment fair, impulse control limited. Patient denies active suicidal plan in this setting he is agreeable to trial of ECT. He is hopeful not to return to same living arrangement Diagnostics Vital Signs (24Hr): Vital Signs - 24 hr 05/25/21 09:01 05/25/21 09:05 05/25/21 18:00 Temperature 97.5 F Pulse Rate 75 75 85 Respiratory Rate 16 Blood Pressure 144/79 H 144/79 H Pulse Oximetry 96 05/26/21 05:30 05/26/21 05:31 Temperature 98.9 F 98.9 F Pulse Rate 65 65 Respiratory Rate 20 20 Blood Pressure 123/60 123/60 Pulse Oximetry 95 95 Body Mass Index 26.4 Labs Results: 05/22/21 12:22 05/23/21 07:25 Imaging Radiology Impressions: ITS Impressions Head CT 05/24/21 15:15 IMPRESSION: 1. Status post prior right craniotomy with scattered right periventricular white matter gliosis and compensatory right ventricular dilatation.. 2. Generalized atrophy with ventricular dilatation and prominent cortical sulci and fissures and cisterns. No edema or mass effect. 3. No intracranial hemorrhage or hematoma or extra-axial fluid collection. Medications Medications Current Medications Generic Name Dose Route Start Last Admin Trade Name Freq PRN Reason Stop Dose Admin Acetaminophen 650 mg 05/22/21 17:28 05/26/21 05:22 Acetaminophen 325 Mg Tablet PO 650 mg Q6H PRN Administration Headache/Pain Mild Scale (1-3) Al Hydroxide/Mg Hydroxide 30 ml 05/22/21 17:28 Magnesium Hydrox/Alum Hydrox 30 Ml Oral.Susp PO Q6H PRN Heartburn/Nausea Albuterol Sulfate 2 puff 05/22/21 22:00 Albuterol Sulfate 90 Mcg 8 Gm Inhaler INHALE Q6H PRN Shortness of Breath/Wheezing Amlodipine Besylate 5 mg 05/25/21 09:00 05/25/21 09:05 Amlodipine Besylate 5 Mg Tablet PO 5 mg DAILY TAZ Administration Protocol Aripiprazole 10 mg 05/23/21 09:00 05/25/21 09:02 Aripiprazole 10 Mg Tablet PO 10 mg DAILY TAZ Administration Docusate Sodium 100 mg 05/23/21 09:00 05/25/21 21:04 Docusate Sodium 100 Mg Capsule PO 100 mg BID TAZ Administration Escitalopram Oxalate 10 mg 05/23/21 09:00 05/25/21 09:07 Escitalopram Oxalate 10 Mg Tablet PO 10 mg DAILY TAZ Administration Finasteride 5 mg 05/23/21 09:00 05/25/21 09:14 Finasteride 5 Mg Tablet PO 5 mg DAILY TAZ Administration Gabapentin 100 mg 05/26/21 08:30 Gabapentin 100 Mg Capsule PO BID@0830,1330 TAZ Lamotrigine 100 mg 05/25/21 09:00 05/25/21 09:07 Lamotrigine 100 Mg Tablet PO 100 mg DAILY TAZ Administration Latanoprost 1 drop 05/22/21 23:45 05/25/21 15:52 Latanoprost 0.005 % Ophth No 2.5 Ml Drops EYE-BOTH 1 drop DAILY TAZ Administration Lisinopril 20 mg 05/25/21 09:00 05/25/21 09:01 Lisinopril 20 Mg Tablet PO 20 mg DAILY TAZ Administration Protocol Lorazepam 0.5 mg 05/23/21 09:00 05/25/21 09:00 Lorazepam 0.5 Mg Tablet PO 0.5 mg DAILY TAZ Administration Lorazepam 0.5 mg 05/22/21 21:44 05/25/21 15:07 Lorazepam 0.5 Mg Tablet PO 0.5 mg DAILY PRN Administration Anxiety Lorazepam 1 mg 05/23/21 21:00 05/25/21 21:04 Lorazepam 1 Mg Tablet PO 1 mg BEDTIME TAZ Administration Magnesium Hydroxide 30 ml 05/22/21 17:28 Milk Of Magnesia 30 Ml Oral.Susp PO DAILY PRN Constipation Mirtazapine 15 mg 05/22/21 22:15 05/25/21 21:04 Mirtazapine 15 Mg Tablet PO 15 mg BEDTIME TAZ Administration Multivitamins/Minerals 1 tab 05/23/21 09:00 05/25/21 09:04 Multivitamin With Minerals Tablet PO 1 tab DAILY TAZ Administration Polyethylene Glycol 17 gm 05/25/21 17:00 05/25/21 15:53 Polyethylene Glycol 3350 17 Gm Powd.Pack PO 17 gm DAILY@1700 TAZ Administration Sodium Biphosphate/Sodium Phosphate 118 ml 05/22/21 21:38 Sodium Phosphate,[place]-Dibasic 133 Ml Enema [place] DAILY PRN Constipation Trazodone HCl 300 mg 05/22/21 22:00 05/25/21 21:04 Trazodone Hcl 100 Mg Tablet PO 300 mg BEDTIME TAZ Administration Allergies Allergies Allergy/AdvReac Type Severity Reaction Status Date / Time fentanyl [FENTANYL] Allergy Intermediate unknown Verified 05/22/21 11:43 Assessment & Plan Assessment & Plan (1) HTN (hypertension): Status: Acute Code(s): I10 - Essential (primary) hypertension (2) Major depressive disorder, recurrent severe without psychotic features: Status: Acute Code(s): F33.2 - Major depressive disorder, recurrent severe without psychotic features (3) Cognitive and neurobehavioral dysfunction following brain injury: Status: Acute Code(s): G31.89 - Other specified degenerative diseases of nervous system; F09 - Unspecified mental disorder due to known physiological condition; S06.9X9S - Unspecified intracranial injury with loss of consciousness of unspecified duration, sequela Assessment and Plan: Patient is a 65-year-old male admitted with severe recurrent depression thea atment resistant with intrusive suicidal thoughts. Patient agreeable to ECT medical evaluation for ECT and head CT scan completed. No evidence of increased intracranial pressure. Would use right unilateral low pulse with technique risks benefits alternatives reviewed with patient. Hopefully with adequate treatment patient will be better able to function make decisions regarding placement and living issues and improve quality of life. Monitor cognitive response to ECT may need only twice a week treatment. Greater than 50% of the session was spent on counseling and/or coordination of care Reason for contiued inpatient stay Substantial Risk for: harm to self
[2021-05-26] MEDS: LORazepam 0.5 MG TABLET PO ×2 (10:26→13:33)
[2021-05-26 10:27] VITALS: BP 134/70; PULSE 86
[2021-05-26] MEDS: ARIPiprazole 10 MG TABLET PO (10:27)
[2021-05-26] MEDS: lisinopriL 20 MG TABLET PO (10:27)
[2021-05-26] MEDS: lamoTRIgine 100 MG TABLET PO (10:29)
[2021-05-26 10:30] VITALS: BP 134/70; PULSE 86
[2021-05-26] MEDS: Gabapentin 100 MG CAPSULE PO ×2 (10:30→13:33)
[2021-05-26] MEDS: amLODIPine Besylate 5 MG TABLET PO (10:30)
[2021-05-26] MEDS: Docusate Sodium 100 MG CAPSULE PO ×2 (10:31→23:15)
[2021-05-26] MEDS: Escitalopram Oxalate 10 MG TABLET PO (10:31)
[2021-05-26] MEDS: Finasteride 5 MG TABLET PO (10:32)
[2021-05-26] MEDS: Ibuprofen 400 MG TABLET PO (10:41)
[2021-05-26] MEDS: polyethylene glycoL 3350 17 GM POWD.PACK PO (15:15)
[2021-05-26 18:00] VITALS: BP 142/72; PULSE 80; RESP 16; TEMP 36.6; O2SAT 97
[2021-05-26] MEDS: LORazepam 1 MG TABLET PO (19:56)
[2021-05-26] MEDS: Latanoprost 0.005 % Ophth Sol 2.5 ML DROPS 1 DROP EYE-BOTH (23:13)
[2021-05-26] MEDS: Mirtazapine 15 MG TABLET PO (23:15)
[2021-05-26] MEDS: traZODone HCL 100 MG TABLET 300 MG PO (23:15)
[2021-05-27 06:00] VITALS: BP 136/71; PULSE 60; RESP 20; TEMP 36.3; O2SAT 95
[2021-05-27 07:06] LABS: Lamotrigine Lamictal 7.2 mcg/mL (4.0-18.0)
[2021-05-27] MEDS: Acetaminophen 325 MG TABLET 650 MG PO (09:15)
[2021-05-27 09:16] VITALS: BP 135/82; PULSE 66
[2021-05-27] MEDS: Escitalopram Oxalate 10 MG TABLET PO (09:16)
[2021-05-27] MEDS: Finasteride 5 MG TABLET PO (09:16)
[2021-05-27] MEDS: ARIPiprazole 10 MG TABLET PO (09:16)
[2021-05-27] MEDS: Docusate Sodium 100 MG CAPSULE PO ×2 (09:16→21:10)
[2021-05-27] MEDS: amLODIPine Besylate 5 MG TABLET PO (09:16)
[2021-05-27 09:17] VITALS: BP 135/82; PULSE 66
[2021-05-27] MEDS: lisinopriL 20 MG TABLET PO (09:17)
[2021-05-27] MEDS: Ibuprofen 400 MG TABLET PO ×2 (09:35→15:29)
[2021-05-27] MEDS: polyethylene glycoL 3350 17 GM POWD.PACK PO (16:20)
[2021-05-27] MEDS: lamoTRIgine 100 MG TABLET PO (17:28)
[2021-05-27] MEDS: LORazepam 0.5 MG TABLET PO (17:28)
[2021-05-27 17:59] VITALS: BP 131/79; PULSE 76; TEMP 36.6; O2SAT 93
[2021-05-27 18:32] VITALS: BP 131/79
--- NOTE | 2021-05-27 19:57 | HO.PSYCHPN ---
Subjective Subjective Date of Service: 05/27/21 Reason For Visit: Depression SI Subjective Notes: Conditional Voluntary Healthcare Proxy: No Medical Problems Affecting Mental Status: Yes Interim History: patient has been having a difficult day depressed hopeless helpless despondent ECT was scheduled and canceled but can be rescheduled for tomorrow remains ruminating depressed despondent about life situation long history of clinical depression Medication Compliance: Yes Mental Status Exam Mental Status Exam Narrative: Alert, awake, cooperative, in a wheel-chair. He had good eye contact, speech was spontaneous with normal tone, his vocabulary was very good. Mood dysphoric, affect constricted but appropriated. Thought process logical and goal directed, thought content over-inclussive at times but no evidence of paranoia, delusions or hallucinations. Patient despondent hopeless helpless preoccupied with the loss of his brother He admitted suicidal thoughts, he denies homicidal thoughts. Insight good, judgment fair, impulse control limited. Patient denies active suicidal plan in this setting he is agreeable to trial of ECT. He is hopeful not to return to same living arrangement Diagnostics Vital Signs (24Hr): Vital Signs - 24 hr 05/27/21 06:00 05/27/21 09:16 05/27/21 09:17 Temperature 97.3 F Pulse Rate 60 66 66 Respiratory Rate 20 Blood Pressure 136/71 135/82 135/82 Pulse Oximetry 95 05/27/21 17:59 05/27/21 18:32 Temperature 97.8 F Pulse Rate 76 Respiratory Rate Blood Pressure 131/79 131/79 Pulse Oximetry 93 Body Mass Index 26.4 Labs Results: 05/22/21 12:22 05/23/21 07:25 Labs: Laboratory Results - last 48 hr 05/23/21 07:25 Lamotrigine 7.2 Imaging Radiology Impressions: ITS Impressions Head CT 05/24/21 15:15 IMPRESSION: 1. Status post prior right craniotomy with scattered right periventricular white matter gliosis and compensatory right ventricular dilatation.. 2. Generalized atrophy with ventricular dilatation and prominent cortical sulci and fissures and cisterns. No edema or mass effect. 3. No intracranial hemorrhage or hematoma or extra-axial fluid collection. Medications Medications Current Medications Generic Name Dose Route Start Last Admin Trade Name Freq PRN Reason Stop Dose Admin Acetaminophen 650 mg 05/22/21 17:28 05/27/21 09:15 Acetaminophen 325 Mg Tablet PO 650 mg Q6H PRN Administration Headache/Pain Mild Scale (1-3) Al Hydroxide/Mg Hydroxide 30 ml 05/22/21 17:28 Magnesium Hydrox/Alum Hydrox 30 Ml Oral.Susp PO Q6H PRN Heartburn/Nausea Albuterol Sulfate 2 puff 05/22/21 22:00 Albuterol Sulfate 90 Mcg 8 Gm Inhaler INHALE Q6H PRN Shortness of Breath/Wheezing Amlodipine Besylate 5 mg 05/25/21 09:00 05/27/21 09:16 Amlodipine Besylate 5 Mg Tablet PO 5 mg DAILY TAZ Administration Protocol Aripiprazole 10 mg 05/23/21 09:00 05/27/21 09:16 Aripiprazole 10 Mg Tablet PO 10 mg DAILY TAZ Administration Docusate Sodium 100 mg 05/23/21 09:00 05/27/21 09:16 Docusate Sodium 100 Mg Capsule PO 100 mg BID TAZ Administration Escitalopram Oxalate 10 mg 05/23/21 09:00 05/27/21 09:16 Escitalopram Oxalate 10 Mg Tablet PO 10 mg DAILY TAZ Administration Finasteride 5 mg 05/23/21 09:00 05/27/21 09:16 Finasteride 5 Mg Tablet PO 5 mg DAILY TAZ Administration Gabapentin 100 mg 05/26/21 08:30 05/27/21 16:54 Gabapentin 100 Mg Capsule PO Not Given BID@0830,1330 [facility] Ibuprofen 400 mg 05/27/21 09:30 05/27/21 15:29 Ibuprofen 400 Mg Tablet PO 400 mg Q6H PRN Administration Pain, Moderate (Pain Scale 4-6 Lamotrigine 100 mg 05/25/21 09:00 05/27/21 09:32 Lamotrigine 100 Mg Tablet PO Not Given DAILY [facility] Latanoprost 1 drop 05/27/21 21:00 Latanoprost 0.005 % Ophth No 2.5 Ml Drops EYE-BOTH BEDTIME [facility] Lisinopril 20 mg 05/25/21 09:00 05/27/21 09:17 Lisinopril 20 Mg Tablet PO 20 mg DAILY TAZ Administration Protocol Lorazepam 0.5 mg 05/23/21 09:00 05/27/21 09:32 Lorazepam 0.5 Mg Tablet PO Not Given DAILY [facility] Lorazepam 1 mg 05/23/21 21:00 05/26/21 19:56 Lorazepam 1 Mg Tablet PO 1 mg BEDTIME TAZ Administration Lorazepam 0.5 mg 05/26/21 10:20 05/27/21 17:28 Lorazepam 0.5 Mg Tablet PO 0.5 mg DAILY PRN Administration Anxiety Magnesium Hydroxide 30 ml 05/22/21 17:28 Milk Of Magnesia 30 Ml Oral.Susp PO DAILY PRN Constipation Mirtazapine 15 mg 05/22/21 22:15 05/26/21 23:15 Mirtazapine 15 Mg Tablet PO 15 mg BEDTIME TAZ Administration Multivitamins/Minerals 1 tab 05/23/21 09:00 05/27/21 09:16 Multivitamin With Minerals Tablet PO 1 tab DAILY TAZ Administration Polyethylene Glycol 17 gm 05/25/21 17:00 05/27/21 16:20 Polyethylene Glycol 3350 17 Gm Powd.Pack PO 17 gm DAILY@1700 TAZ Administration Sodium Biphosphate/Sodium Phosphate 118 ml 05/22/21 21:38 Sodium Phosphate,[place]-Dibasic 133 Ml Enema [place] DAILY PRN Constipation Trazodone HCl 300 mg 05/22/21 22:00 05/26/21 23:15 Trazodone Hcl 100 Mg Tablet PO 300 mg BEDTIME TAZ Administration Allergies Allergies Allergy/AdvReac Type Severity Reaction Status Date / Time fentanyl [FENTANYL] Allergy Intermediate unknown Verified 05/22/21 11:43 Assessment & Plan Assessment & Plan (1) HTN (hypertension): Status: Acute Code(s): I10 - Essential (primary) hypertension (2) Major depressive disorder, recurrent severe without psychotic features: Status: Acute Code(s): F33.2 - Major depressive disorder, recurrent severe without psychotic features (3) Cognitive and neurobehavioral dysfunction following brain injury: Status: Acute Code(s): G31.89 - Other specified degenerative diseases of nervous system; F09 - Unspecified mental disorder due to known physiological condition; S06.9X9S - Unspecified intracranial injury with loss of consciousness of unspecified duration, sequela Assessment and Plan: Patient is a 65-year-old male admitted with severe recurrent depression treatment resistant with intrusive suicidal thoughts. Patient agreeable to ECT medical evaluation for ECT and head CT scan completed. No evidence of increased intracranial pressure. Would use right unilateral low pulse with technique risks benefits alternatives reviewed with patient. Hopefully with adequate treatment patient will be better able to function make decisions regarding placement and living issues and improve quality of life. Monitor cognitive response to ECT may need only twice a week treatment. case extensively. Discussed with Dr. Christine and Dr. Castano ECT rescheduled for tomorrow Greater than 50% of the session was spent on counseling and/or coordination of care Reason for contiued inpatient stay Substantial Risk for: harm to self, inability to function and rapid decompensation
[2021-05-27] MEDS: traZODone HCL 100 MG TABLET 300 MG PO (21:10)
[2021-05-27] MEDS: Mirtazapine 15 MG TABLET PO (21:10)
[2021-05-27] MEDS: Latanoprost 0.005 % Ophth Sol 2.5 ML DROPS 1 DROP EYE-BOTH (21:14)
[2021-05-28] VITALS (12 sets, daily range): BP systolic 129–204; BP diastolic 65–110; PULSE 58–117; RESP 16–20; TEMP 36–36.9; O2SAT 94–97; BMI 26.4
[2021-05-28] MEDS: Ibuprofen 400 MG TABLET PO ×2 (02:04→14:29)
--- NOTE | 2021-05-28 09:33 | HO.ANESPROP2 ---
[facility] Active Problems Active Problems: All Active Problems (Updated 05/24/21 @ 23:38 by Addy Haskins MD) Major depressive disorder, recurrent severe without psychotic features (Acute) Cognitive and neurobehavioral dysfunction following brain injury (Acute) HTN (hypertension) (Acute) Past Medical History Medical History Alcohol use disorder, severe, in sustained remission Cognitive and neurobehavioral dysfunction following brain injury Hernia HTN (hypertension) Major depressive disorder, recurrent Major depressive disorder, recurrent severe without psychotic features Surgical History Surgical History H/O brain surgery History of hip replacement S/P cholecystectomy Social History Social History Household Members: Other Household Members Other:: 3 housemates in [facility] Housing: Other Housing Other:: Assisted Patient Tobacco Use Status: Never used Tobacco service: No Sexual orientation: Straight/Heterosexual Meds Allergies Allergy/AdvReac Type Severity Reaction Status Date / Time fentanyl [FENTANYL] Allergy Intermediate unknown Verified 05/22/21 11:43 Active Medications: Current Medications Generic Name Dose Route Start Last Admin Trade Name Freq PRN Reason Stop Dose Admin Acetaminophen 650 mg 05/22/21 17:28 05/27/21 09:15 Acetaminophen 325 Mg Tablet PO 650 mg Q6H PRN Administration Headache/Pain Mild Scale (1-3) Al Hydroxide/Mg Hydroxide 30 ml 05/22/21 17:28 Magnesium Hydrox/Alum Hydrox 30 Ml Oral.Susp PO Q6H PRN Heartburn/Nausea Albuterol Sulfate 2 puff 05/22/21 22:00 Albuterol Sulfate 90 Mcg 8 Gm Inhaler INHALE Q6H PRN Shortness of Breath/Wheezing Amlodipine Besylate 5 mg 05/25/21 09:00 05/27/21 09:16 Amlodipine Besylate 5 Mg Tablet PO 5 mg DAILY TAZ Administration Protocol Aripiprazole 10 mg 05/23/21 09:00 05/27/21 09:16 Aripiprazole 10 Mg Tablet PO 10 mg DAILY TAZ Administration Docusate Sodium 100 mg 05/23/21 09:00 05/27/21 21:10 Docusate Sodium 100 Mg Capsule PO 100 mg BID TAZ Administration Escitalopram Oxalate 10 mg 05/23/21 09:00 05/27/21 09:16 Escitalopram Oxalate 10 Mg Tablet PO 10 mg DAILY TAZ Administration Finasteride 5 mg 05/23/21 09:00 05/27/21 09:16 Finasteride 5 Mg Tablet PO 5 mg DAILY TAZ Administration Gabapentin 100 mg 05/26/21 08:30 05/27/21 16:54 Gabapentin 100 Mg Capsule PO Not Given BID@0830,1330 [facility] Ibuprofen 400 mg 05/27/21 09:30 05/28/21 02:04 Ibuprofen 400 Mg Tablet PO 400 mg Q6H PRN Administration Pain, Moderate (Pain Scale 4-6 Lamotrigine 100 mg 05/25/21 09:00 05/27/21 09:32 Lamotrigine 100 Mg Tablet PO Not Given DAILY [facility] Latanoprost 1 drop 05/27/21 21:00 05/27/21 21:14 Latanoprost 0.005 % Ophth No 2.5 Ml Drops EYE-BOTH 1 drop BEDTIME [facility] Administration Lisinopril 20 mg 05/25/21 09:00 05/27/21 09:17 Lisinopril 20 Mg Tablet PO 20 mg DAILY [facility] Administration Protocol Lorazepam 1 mg 05/23/21 21:00 05/27/21 22:01 Lorazepam 1 Mg Tablet PO Not Given BEDTIME TAZ Lorazepam 0.5 mg 05/26/21 10:20 05/27/21 17:28 Lorazepam 0.5 Mg Tablet PO 0.5 mg DAILY PRN Administration Anxiety Magnesium Hydroxide 30 ml 05/22/21 17:28 Milk Of Magnesia 30 Ml Oral.Susp PO DAILY PRN Constipation Mirtazapine 15 mg 05/22/21 22:15 05/27/21 21:10 Mirtazapine 15 Mg Tablet PO 15 mg BEDTIME [facility] Administration Multivitamins/Minerals 1 tab 05/23/21 09:00 05/27/21 09:16 Multivitamin With Minerals Tablet PO 1 tab DAILY [facility] Administration Polyethylene Glycol 17 gm 05/25/21 17:00 05/27/21 16:20 Polyethylene Glycol 3350 17 Gm Powd.Pack PO 17 gm DAILY@1700 [facility] Administration Sodium Biphosphate/Sodium Phosphate 118 ml 05/22/21 21:38 Sodium Phosphate,[place]-Dibasic 133 Ml Enema AL DAILY PRN Constipation Trazodone HCl 300 mg 05/22/21 22:00 05/27/21 21:10 Trazodone Hcl 100 Mg Tablet PO 300 mg BEDTIME TAZ Administration Home Medications Medication Instructions Recorded Confirmed Last Taken Type Tylenol 650 mg PO Q6-8H PRN 05/22/21 05/22/21 Unknown History Tylenol Arthritis Pain 650 mg PO DAILY 05/22/21 05/22/21 Unknown History albuterol [Ventolin] See Rx Instructions .ROUTE .COMPLEX 05/22/21 05/22/21 Unknown History amantadine HCl 1 tab PO BID 05/22/21 05/22/21 Unknown History aripiprazole 1 tab PO DAILY 05/22/21 05/22/21 Unknown History clotrimazole See Rx Instructions .ROUTE 05/22/21 05/22/21 Unknown History .COMPLEX PRN dextromethorphan-guaifenesin 10 ml PO Q6-8H PRN 05/22/21 05/22/21 Unknown History [Robitussin DM Max] docusate sodium 1 cap PO BID 05/22/21 05/22/21 Unknown History docusate sodium See Rx Instructions .ROUTE 05/22/21 05/22/21 Unknown History .COMPLEX PRN escitalopram oxalate 1 tab PO DAILY 05/22/21 05/22/21 Unknown History finasteride 1 tab PO DAILY 05/22/21 05/22/21 Unknown History gabapentin enacarbil [Horizant] 1 tab PO BID 05/22/21 05/22/21 Unknown History glycerin [Artificial Tears 1 drp OPHTHALMIC (EYE) Q1-2H PRN 05/22/21 05/22/21 Unknown History (glycerin)] lamotrigine 1 tab PO DAILY 05/22/21 05/22/21 Unknown History lamotrigine 1 tab PO DAILY 05/22/21 05/22/21 Unknown History latanoprost 1 drp OPHTHALMIC (EYE) DAILY 05/22/21 05/22/21 Unknown History lisinopril 1 tab PO DAILY 05/22/21 05/22/21 Unknown History lorazepam 1 tab PO DAILY 05/22/21 05/22/21 Unknown History lorazepam 1 tab PO DAILY 05/22/21 05/22/21 Unknown History lorazepam 1 tab PO DAILY PRN 05/22/21 05/22/21 Unknown History magnesium hydroxide [Milk of 2,400 mg PO PRN 05/22/21 Unknown History Magnesia] melatonin 5 mg PO BEDTIME 05/22/21 05/22/21 Unknown History gbhkkywivjur-mbrilazx-dxzemk 1 tab PO DAILY 05/22/21 05/22/21 Unknown History [Centrum Silver] polyethylene glycol 3350 17 g PO DAILY 05/22/21 05/22/21 Unknown History polyethylene glycol 3350 17 g PO DAILY PRN 05/22/21 05/22/21 Unknown History psyllium husk [Metamucil] 0.4 g PO DAILY 05/22/21 05/22/21 Unknown History sodium phosphates [Fleet Enema] 118 ml AL DAILY PRN 05/22/21 05/22/21 Unknown History trazodone 2 tab PO BEDTIME 05/22/21 05/22/21 Unknown History Exam Exam Date and Time: May 28, 2021 0933 Height,Weight and Vital Signs: Height 6 ft 2 in Weight 206 lb Last Vital Signs Temp 97.4 F 05/28/21 06:00 Pulse 58 05/28/21 06:00 Resp 20 05/28/21 06:00 BP 133/65 05/28/21 06:00 Pulse Ox 96 05/28/21 06:00 Pertinent Lab Results Pertinent Lab Results: Laboratory Tests 05/22/21 05/22/21 05/22/21 12:22 12:22 12:22 WBC 6.1 RBC 4.30 L Hgb 14.4 Hct 42.3 MCV 98.4 H MCH 33.5 H MCHC 34.0 RDW 11.4 Plt Count 159 L MPV 9.8 Immature Gran % (Auto) 0.7 H Neut % (Auto) 59.8 Lymph % (Auto) 25.8 [place] % (Auto) 8.9 Eos % (Auto) 4.3 H Baso % (Auto) 0.5 Lymph # (Auto) 1.6 [place] # (Auto) 0.5 Eos # (Auto) 0.3 Baso # (Auto) 0.0 Abs Immat Gran (auto) 0.04 H Absolute Neuts (auto) 3.6 Absolute Nucleated RBC 0.000 Nucleated RBC % (auto) 0.0 Sodium 139 Potassium 4.1 Chloride 105 Carbon Dioxide 24 Anion Gap 14 BUN 13 Creatinine 0.86 Estim Creat Clear Calc 98.2 Estimated GFR > 60 Random Glucose 85 Fasting Glucose Calcium 9.4 Magnesium Total Bilirubin 0.9 Direct Bilirubin 0.4 AST 26 ALT 45 H Alkaline Phosphatase 81 D Total Protein 6.8 Albumin 4.4 Triglycerides Cholesterol LDL Cholesterol, Calc HDL Cholesterol Vitamin B12 Folate TSH Free T4 Lamotrigine Ethyl Alcohol < 10 COVID-19 ([facility]) COVID-19 Clin Com 05/22/21 05/23/21 05/23/21 14:25 07:25 07:25 WBC RBC Hgb Hct MCV MCH MCHC RDW Plt Count MPV Immature Gran % (Auto) Neut % (Auto) Lymph % (Auto) [place] % (Auto) Eos % (Auto) Baso % (Auto) Lymph # (Auto) [place] # (Auto) Eos # (Auto) Baso # (Auto) Abs Immat Gran (auto) Absolute Neuts (auto) Absolute Nucleated RBC Nucleated RBC % (auto) Sodium 140 Potassium 4.0 Chloride 106 Carbon Dioxide 26 Anion Gap 12 BUN 16 Creatinine 0.89 Estim Creat Clear Calc 94.9 Estimated GFR > 60 Random Glucose Fasting Glucose 91 Calcium 9.4 Magnesium 2.2 Total Bilirubin 0.6 Direct Bilirubin AST 26 ALT 43 H Alkaline Phosphatase 88 Total Protein 6.5 Albumin 4.2 Triglycerides 74 Cholesterol 167 LDL Cholesterol, Calc 109 HDL Cholesterol 44 Vitamin B12 757 Folate 19.9 TSH 0.63 Free T4 0.90 Lamotrigine Ethyl Alcohol COVID-19 ([facility]) Negative COVID-19 Clin Com See Note 05/23/21 07:25 WBC RBC Hgb Hct MCV MCH MCHC RDW Plt Count MPV Immature Gran % (Auto) Neut % (Auto) Lymph % (Auto) [place] % (Auto) Eos % (Auto) Baso % (Auto) Lymph # (Auto) [place] # (Auto) Eos # (Auto) Baso # (Auto) Abs Immat Gran (auto) Absolute Neuts (auto) Absolute Nucleated RBC Nucleated RBC % (auto) Sodium Potassium Chloride Carbon Dioxide Anion Gap BUN Creatinine Estim Creat Clear Calc Estimated GFR Random Glucose Fasting Glucose Calcium Magnesium Total Bilirubin Direct Bilirubin AST ALT Alkaline Phosphatase Total Protein Albumin Triglycerides Cholesterol LDL Cholesterol, Calc HDL Cholesterol Vitamin B12 Folate TSH Free T4 Lamotrigine 7.2 Ethyl Alcohol COVID-19 ([facility]) COVID-19 Clin Com Airway Mallampati Class: I TM Dist: >3cm Neck ROM: Full Heart: RRR Assessment and Plan Assessment Anesthesia Assessment: Anesthesia Plan Discussed and Chart Reviewed Final Anesthetic Review NPO: Yes ASA Class: II Final Preanesthetic Review: No Changes in Pt Med Stat, Meds/Allgs Chart Reviewed, Consent Obtained/Reviewed and Anes Risks/Benef Reviewed Patient Risk: Low Procedure Risk: Low Anesthetic Plan Anesthetic Plan: GA Disposition: Standard PACU
--- NOTE | 2021-05-28 10:18 | MHC.SHP ---
Pre-Procedural Eval Section A Date of Service: 05/28/21 The patient is an INPATIENT: Yes Changes since office visit: No Cold of Flu in the past 2 weeks, No New Medical Problems, No Changes in Medication and No Patient answered all questions The History & Physical has been completed within 30 days and I have reviewed it.: Yes Section B Chief Complaint: Depression SI Details of Present Illness: The patient suffers of MDD, TBI and other comorbilities, not responding to several medication changes. Now depressed with suicidal ideation with a plan. No psychosisi Relevant Family History (Specify if Yes): Yes Relevant Social History: Other (specify) (TBI that impaired his high functional life) Present Medications: see Short Stay Collaborative assessment Medical History: Significant History (TBI) History of Previous Operations: Relevant previous surgery/procedure and date(s) (Hx of intraparenchymal bleeding, resolved, no evidence of intracraneal pressure.) Allergies: Allergies Allergy/AdvReac Type Severity Reaction Status Date / Time fentanyl [FENTANYL] Allergy Intermediate unknown Verified 05/22/21 11:43 Review of Systems Sugical H&P ROS: Negative: Constitution, Cardiovascular, Respiratory, Neurological, Psychiatric, Hem-Onc, Allergic/Immunologic, Gastrointestinal, Genitourinary, Musculoskeletal, Integumentary, Endocrine and Eyes/Ears/Nose/Throat Exam Surgical H&P Exam: Normal: HEENT, Normal: Heart, Normal: Lungs, Normal: Extremities, Normal: Abdomen, Normal: Skin and Normal: Neurological Plan Diagnosis/Plan: Unchanged I have reviewed the history and physical and performed a pertinent physical examination on my patient. No changes have occurred unless specified.
--- NOTE | 2021-05-28 10:22 | HO.ECTPROC ---
ECT Procedure Note Diagnosis/Treatment Date of Service: 05/28/21 Diagnosis: Major Depressive Disorder Current Treatment Number: 1 Treatment: Series Interval Clinical Notes: Very depressed with suicidal ideation ECT Settings Device: THYMATRON DGx Electrode Placement: Bifrontal Program/Pulse Width: 0.25 Energy Percent: 70 Seizure Duration By Motor Observation (in seconds): 57 Medications Administration General Anesthetic: Etomidate (12) Muscle Relaxant: Succinylcholine (100) Ancillary Medications Analgesics: Torodol - Pre ECT Anti-emetics: Zofran - Pre ECT Miscillaneous Medications: Propofol Airway Management Airway Management: Bag Mask Ventilation Treatment Recommendations No Changes Recommended: No change Pt Tolerated Procedure w/o Issue: Yes
[2021-05-28] MEDS: lisinopriL 20 MG TABLET PO (13:33)
[2021-05-28] MEDS: amLODIPine Besylate 5 MG TABLET PO (13:34)
[2021-05-28] MEDS: LORazepam 0.5 MG TABLET PO (13:35)
[2021-05-28] MEDS: Acetaminophen 325 MG TABLET 650 MG PO (14:29)
[2021-05-28] MEDS: ARIPiprazole 10 MG TABLET PO (14:29)
[2021-05-28] MEDS: Finasteride 5 MG TABLET PO (14:30)
[2021-05-28] MEDS: Docusate Sodium 100 MG CAPSULE PO ×2 (14:30→21:05)
[2021-05-28] MEDS: Escitalopram Oxalate 10 MG TABLET PO (14:30)
[2021-05-28] MEDS: lamoTRIgine 100 MG TABLET PO (14:30)
[2021-05-28] MEDS: Gabapentin 100 MG CAPSULE PO (14:32)
[2021-05-28] MEDS: polyethylene glycoL 3350 17 GM POWD.PACK PO (16:15)
--- NOTE | 2021-05-28 17:12 | P.PNPSI_ITS ---
Subjective Subjective Date of Service: 05/28/21 Reason For Visit: Depression SI Subjective Notes: Conditional Voluntary Guardianship: No Interim History: pt seen post ect alert not overly confused tolerated ect Medication Compliance: Yes Attending Groups: Intermittent Mental Status Exam Mental Status Exam Narrative: Alert, awake, cooperative, in a wheel-chair. He had good eye contact, speech was spontaneous with normal tone, his vocabulary was very good. Mood dysphoric, affect constricted but appropriated. Thought process logical and goal directed, adequate impulse control in that setting Diagnostics Vital Signs (24Hr): Vital Signs - 24 hr 05/27/21 17:59 05/27/21 18:32 05/28/21 06:00 Temperature 97.8 F 97.4 F Pulse Rate 76 58 Respiratory Rate 20 Blood Pressure 131/79 131/79 133/65 Pulse Oximetry 93 96 05/28/21 09:35 05/28/21 11:39 05/28/21 11:45 Temperature 96.8 F 97.7 F Pulse Rate 62 117 H 108 H Respiratory Rate 16 20 20 Blood Pressure 160/91 H 204/107 H 180/110 H Pulse Oximetry 97 96 96 05/28/21 11:49 05/28/21 11:54 05/28/21 12:12 Temperature 97.7 F Pulse Rate 101 H 98 98 Respiratory Rate 20 20 20 Blood Pressure 190/108 H 180/85 H 169/82 H Pulse Oximetry 97 97 96 05/28/21 13:22 05/28/21 13:33 05/28/21 13:34 Temperature 97.8 F Pulse Rate 96 96 96 Respiratory Rate 18 Blood Pressure 157/81 H 157/81 H 157/81 H Pulse Oximetry 95 Body Mass Index 26.4 Labs Results: 05/22/21 12:22 05/23/21 07:25 Labs: Laboratory Results - last 48 hr 05/23/21 07:25 Lamotrigine 7.2 Imaging Radiology Impressions: ITS Impressions Head CT 05/24/21 15:15 IMPRESSION: 1. Status post prior right craniotomy with scattered right periventricular white matter gliosis and compensatory right ventricular dilatation.. 2. Generalized atrophy with ventricular dilatation and prominent cortical sulci and fissures and cisterns. No edema or mass effect. 3. No intracranial hemorrhage or hematoma or extra-axial fluid collection. Medications Medications Current Medications Generic Name Dose Route Start Last Admin Trade Name Freq PRN Reason Stop Dose Admin Acetaminophen 650 mg 05/22/21 17:28 05/28/21 14:29 Acetaminophen 325 Mg Tablet PO 650 mg Q6H PRN Administration Headache/Pain Mild Scale (1-3) Al Hydroxide/Mg Hydroxide 30 ml 05/22/21 17:28 Magnesium Hydrox/Alum Hydrox 30 Ml Oral.Susp PO Q6H PRN Heartburn/Nausea Albuterol Sulfate 2 puff 05/22/21 22:00 Albuterol Sulfate 90 Mcg 8 Gm Inhaler INHALE Q6H PRN Shortness of Breath/Wheezing Amlodipine Besylate 5 mg 05/25/21 09:00 05/28/21 13:34 Amlodipine Besylate 5 Mg Tablet PO 5 mg DAILY TAZ Administration Protocol Aripiprazole 10 mg 05/23/21 09:00 05/28/21 14:29 Aripiprazole 10 Mg Tablet PO 10 mg DAILY TAZ Administration Docusate Sodium 100 mg 05/23/21 09:00 05/28/21 14:30 Docusate Sodium 100 Mg Capsule PO 100 mg BID TAZ Administration Escitalopram Oxalate 10 mg 05/23/21 09:00 05/28/21 14:30 Escitalopram Oxalate 10 Mg Tablet PO 10 mg DAILY TAZ Administration Finasteride 5 mg 05/23/21 09:00 05/28/21 14:30 Finasteride 5 Mg Tablet PO 5 mg DAILY TAZ Administration Gabapentin 100 mg 05/26/21 08:30 05/28/21 14:41 Gabapentin 100 Mg Capsule PO Not Given BID@0830,1330 [facility] Ibuprofen 400 mg 05/27/21 09:30 05/28/21 14:29 Ibuprofen 400 Mg Tablet PO 400 mg Q6H PRN Administration Pain, Moderate (Pain Scale 4-6 Lamotrigine 100 mg 05/25/21 09:00 05/28/21 14:30 Lamotrigine 100 Mg Tablet PO 100 mg DAILY TAZ Administration Latanoprost 1 drop 05/27/21 21:00 05/27/21 21:14 Latanoprost 0.005 % Ophth No 2.5 Ml Drops EYE-BOTH 1 drop BEDTIME TAZ Administration Lisinopril 20 mg 05/25/21 09:00 05/28/21 13:33 Lisinopril 20 Mg Tablet PO 20 mg DAILY TAZ Administration Protocol Lorazepam 1 mg 05/23/21 21:00 05/27/21 22:01 Lorazepam 1 Mg Tablet PO Not Given BEDTIME TAZ Lorazepam 0.5 mg 05/26/21 10:20 05/28/21 13:35 Lorazepam 0.5 Mg Tablet PO 0.5 mg DAILY PRN Administration Anxiety Magnesium Hydroxide 30 ml 05/22/21 17:28 Milk Of Magnesia 30 Ml Oral.Susp PO DAILY PRN Constipation Mirtazapine 15 mg 05/22/21 22:15 05/27/21 21:10 Mirtazapine 15 Mg Tablet PO 15 mg BEDTIME TAZ Administration Multivitamins/Minerals 1 tab 05/23/21 09:00 05/28/21 14:31 Multivitamin With Minerals Tablet PO 1 tab DAILY TAZ Administration Ondansetron HCl 4 mg 05/28/21 13:46 Ondansetron Odt 4 Mg Tab.Rapdis TRANSLINGU Q8H PRN Nausea and Vomiting Polyethylene Glycol 17 gm 05/25/21 17:00 05/28/21 16:15 Polyethylene Glycol 3350 17 Gm Powd.Pack PO 17 gm DAILY@1700 TAZ Administration Sodium Biphosphate/Sodium Phosphate 118 ml 05/22/21 21:38 Sodium Phosphate,[place]-Dibasic 133 Ml Enema ID DAILY PRN Constipation Trazodone HCl 300 mg 05/22/21 22:00 05/27/21 21:10 Trazodone Hcl 100 Mg Tablet PO 300 mg BEDTIME TAZ Administration Allergies Allergies Allergy/AdvReac Type Severity Reaction Status Date / Time fentanyl [FENTANYL] Allergy Intermediate unknown Verified 05/22/21 11:43 Assessment & Plan Assessment & Plan (1) HTN (hypertension): Status: Acute Code(s): I10 - Essential (primary) hypertension (2) Major depressive disorder, recurrent severe without psychotic features: Status: Acute Code(s): F33.2 - Major depressive disorder, recurrent severe without psychotic features (3) Cognitive and neurobehavioral dysfunction following brain injury: Status: Acute Code(s): G31.89 - Other specified degenerative diseases of nervous system; F09 - Unspecified mental disorder due to known physiological condition; S06.9X9S - Unspecified intracranial injury with loss of consciousness of unspecified duration, sequela Assessment and Plan: tolerated first ect continue as tolerated Greater than 50% of the session was spent on counseling and/or coordination of care Reason for contiued inpatient stay Substantial Risk for: harm to self, inability to function and rapid decompensation
--- NOTE | 2021-05-28 19:09 | PC.NURSE ---
[employer] [facility] [employer] [phone], [facility], [place]
--- NOTE | 2021-05-28 19:11 | PC.NURSE ---
Samanta states Just the mere thought of that house [long-term] makes me want to . I'm going to be trapped there and I don't want to be. The big thing is environment I need to be surrounded by people who are competent and give a hoot. I need to feel inspired. Right now I just feel like I am taking up space.
[2021-05-28] MEDS: Latanoprost 0.005 % Ophth Sol 2.5 ML DROPS 1 DROP EYE-BOTH (19:53)
[2021-05-28] MEDS: Melatonin 3 MG TABLET 6 MG PO (21:11)
[2021-05-28] MEDS: traZODone HCL 100 MG TABLET 300 MG PO (21:11)
[2021-05-28] MEDS: Mirtazapine 15 MG TABLET PO (21:11)
[2021-05-28] MEDS: LORazepam 1 MG TABLET PO (21:36)
[2021-05-29 06:00] VITALS: BP 144/65; PULSE 63; RESP 18; TEMP 36.2; O2SAT 94
[2021-05-29] MEDS: Ibuprofen 400 MG TABLET PO (06:11)
[2021-05-29 09:03] VITALS: BP 139/63; PULSE 69
[2021-05-29] MEDS: Gabapentin 100 MG CAPSULE PO ×2 (09:03→13:43)
[2021-05-29] MEDS: amLODIPine Besylate 5 MG TABLET PO (09:03)
[2021-05-29 09:04] VITALS: BP 139/63; PULSE 69
[2021-05-29] MEDS: Docusate Sodium 100 MG CAPSULE PO ×2 (09:04→20:45)
[2021-05-29] MEDS: ARIPiprazole 10 MG TABLET PO (09:04)
[2021-05-29] MEDS: Escitalopram Oxalate 10 MG TABLET PO (09:04)
[2021-05-29] MEDS: lamoTRIgine 100 MG TABLET PO (09:04)
[2021-05-29] MEDS: Finasteride 5 MG TABLET PO (09:04)
[2021-05-29] MEDS: lisinopriL 20 MG TABLET PO (09:04)
[2021-05-29] MEDS: LORazepam 0.5 MG TABLET PO (09:05)
[2021-05-29] MEDS: Acetaminophen 325 MG TABLET 650 MG PO (13:43)
--- NOTE | 2021-05-29 16:01 | PC.NURSE ---
Pt participated in [facility] screen on this date. Pt unable to engage in visuospatial aspect of screen due to difficulty with handgrip/ fine motor coordination and decreased vision. Pt otherwise had good performance in naming, memory, attention, abstraction, delayed recall and orientation. Some difficulty noted on language and word fluency, pt stated feeling too much under pressure . Unable to grade screen as regular [facility] version due to invalidation on visuospatial section, this engineering writer graded screen as [facility] for the blind, scored 19/22, indicating cognition is within normal limits
[2021-05-29] MEDS: polyethylene glycoL 3350 17 GM POWD.PACK PO (16:38)
[2021-05-29 18:00] VITALS: BP 132/72; PULSE 73; RESP 18; TEMP 36.6; O2SAT 94
[2021-05-29] MEDS: Melatonin 3 MG TABLET 6 MG PO (20:45)
[2021-05-29] MEDS: traZODone HCL 100 MG TABLET 300 MG PO (20:45)
[2021-05-29] MEDS: LORazepam 1 MG TABLET PO (20:45)
[2021-05-29] MEDS: Mirtazapine 15 MG TABLET PO (20:45)
[2021-05-29] MEDS: Latanoprost 0.005 % Ophth Sol 2.5 ML DROPS 1 DROP EYE-BOTH (20:50)
--- NOTE | 2021-05-29 22:04 | P.PNPSI_ITS ---
Subjective Subjective Date of Service: 05/29/21 Reason For Visit: Depression SI Subjective Notes: Conditional Voluntary Guardianship: No Medical Problems Affecting Mental Status: Yes Interim History: The patient is depressed but is struggling to come up with strategies to manage his existence. [place] per social work helping with possible discharge plans. Patient after 1st ECT did have significant muscular discomfort most likely reaction to succinylcholine will discuss with Anesthesia Medication Compliance: Yes Mental Status Exam Mental Status Exam Narrative: Alert, awake, cooperative, in a wheel-chair. He had good eye contact, speech was spontaneous with normal tone slowed mentation somewhat monotone . Mood dysphoric, affect constricted but appropriate, Thought process logical and goal directed, adequate impulse control in this setting unsafe if were to return to living situation. Patient educated regarding ECT expectations and treatment plan. He was able to take in this information Diagnostics Vital Signs (24Hr): Vital Signs - 24 hr 05/29/21 06:00 05/29/21 09:03 05/29/21 09:04 Temperature 97.1 F Pulse Rate 63 69 69 Respiratory Rate 18 Blood Pressure 144/65 H 139/63 139/63 Pulse Oximetry 94 05/29/21 18:00 Temperature 97.9 F Pulse Rate 73 Respiratory Rate 18 Blood Pressure 132/72 Pulse Oximetry 94 Body Mass Index 26.4 Labs Results: 05/22/21 12:22 05/23/21 07:25 Imaging Radiology Impressions: ITS Impressions Head CT 05/24/21 15:15 IMPRESSION: 1. Status post prior right craniotomy with scattered right periventricular white matter gliosis and compensatory right ventricular dilatation.. 2. Generalized atrophy with ventricular dilatation and prominent cortical sulci and fissures and cisterns. No edema or mass effect. 3. No intracranial hemorrhage or hematoma or extra-axial fluid collection. Medications Medications Current Medications Generic Name Dose Route Start Last Admin Trade Name Freq PRN Reason Stop Dose Admin Acetaminophen 650 mg 05/22/21 17:28 05/29/21 13:43 Acetaminophen 325 Mg Tablet PO 650 mg Q6H PRN Administration Headache/Pain Mild Scale (1-3) Al Hydroxide/Mg Hydroxide 30 ml 05/22/21 17:28 Magnesium Hydrox/Alum Hydrox 30 Ml Oral.Susp PO Q6H PRN Heartburn/Nausea Albuterol Sulfate 2 puff 05/22/21 22:00 Albuterol Sulfate 90 Mcg 8 Gm Inhaler INHALE Q6H PRN Shortness of Breath/Wheezing Amlodipine Besylate 5 mg 05/25/21 09:00 05/29/21 09:03 Amlodipine Besylate 5 Mg Tablet PO 5 mg DAILY TAZ Administration Protocol Aripiprazole 10 mg 05/23/21 09:00 05/29/21 09:04 Aripiprazole 10 Mg Tablet PO 10 mg DAILY TAZ Administration Docusate Sodium 100 mg 05/23/21 09:00 05/29/21 20:45 Docusate Sodium 100 Mg Capsule PO 100 mg BID TAZ Administration Escitalopram Oxalate 10 mg 05/23/21 09:00 05/29/21 09:04 Escitalopram Oxalate 10 Mg Tablet PO 10 mg DAILY TAZ Administration Finasteride 5 mg 05/23/21 09:00 05/29/21 09:04 Finasteride 5 Mg Tablet PO 5 mg DAILY TAZ Administration Gabapentin 100 mg 05/26/21 08:30 05/29/21 13:43 Gabapentin 100 Mg Capsule PO 100 mg BID@0830,1330 TAZ Administration Ibuprofen 400 mg 05/27/21 09:30 05/29/21 06:11 Ibuprofen 400 Mg Tablet PO 400 mg Q6H PRN Administration Pain, Moderate (Pain Scale 4-6 Lamotrigine 100 mg 05/25/21 09:00 05/29/21 09:04 Lamotrigine 100 Mg Tablet PO 100 mg DAILY TAZ Administration Latanoprost 1 drop 05/27/21 21:00 05/29/21 20:50 Latanoprost 0.005 % Ophth No 2.5 Ml Drops EYE-BOTH 1 drop BEDTIME TAZ Administration Lidocaine 1 patch 05/30/21 09:00 Lidocaine 4 % Patch Adh..Patch TRANSDERMA DAILY [facility] Protocol Lisinopril 20 mg 05/25/21 09:00 05/29/21 09:04 Lisinopril 20 Mg Tablet PO 20 mg DAILY TAZ Administration Protocol Lorazepam 0.5 mg 05/26/21 10:20 05/28/21 13:35 Lorazepam 0.5 Mg Tablet PO 0.5 mg DAILY PRN Administration Anxiety Lorazepam 0.5 mg 05/29/21 09:00 05/29/21 09:05 Lorazepam 0.5 Mg Tablet PO 0.5 mg DAILY TAZ Administration Lorazepam 1 mg 05/29/21 21:00 05/29/21 20:45 Lorazepam 1 Mg Tablet PO 1 mg BEDTIME TAZ Administration Magnesium Hydroxide 30 ml 05/22/21 17:28 Milk Of Magnesia 30 Ml Oral.Susp PO DAILY PRN Constipation Melatonin 6 mg 05/28/21 21:00 05/29/21 20:45 Melatonin 3 Mg Tablet PO 6 mg BEDTIME TAZ Administration Mirtazapine 15 mg 05/22/21 22:15 05/29/21 20:45 Mirtazapine 15 Mg Tablet PO 15 mg BEDTIME TAZ Administration Multivitamins/Minerals 1 tab 05/23/21 09:00 05/29/21 09:05 Multivitamin With Minerals Tablet PO 1 tab DAILY TAZ Administration Ondansetron HCl 4 mg 05/28/21 13:46 Ondansetron Odt 4 Mg Tab.Rapdis TRANSLINGU Q8H PRN Nausea and Vomiting Polyethylene Glycol 17 gm 05/25/21 17:00 05/29/21 16:38 Polyethylene Glycol 3350 17 Gm Powd.Pack PO 17 gm DAILY@1700 TAZ Administration Sodium Biphosphate/Sodium Phosphate 118 ml 05/22/21 21:38 Sodium Phosphate,[place]-Dibasic 133 Ml Enema [place] DAILY PRN Constipation Trazodone HCl 300 mg 05/22/21 22:00 05/29/21 20:45 Trazodone Hcl 100 Mg Tablet PO 300 mg BEDTIME TAZ Administration Allergies Allergies Allergy/AdvReac Type Severity Reaction Status Date / Time fentanyl [FENTANYL] Allergy Intermediate unknown Verified 05/22/21 11:43 Assessment & Plan Assessment & Plan (1) HTN (hypertension): Status: Acute Code(s): I10 - Essential (primary) hypertension (2) Major depressive disorder, recurrent severe without psychotic features: Status: Acute Code(s): F33.2 - Major depressive disorder, recurrent severe without psychotic features (3) Cognitive and neurobehavioral dysfunction following brain injury: Status: Acute Code(s): G31.89 - Other specified degenerative diseases of nervous system; F09 - Unspecified mental disorder due to known physiological condition; S06.9X9S - Unspecified intracranial injury with loss of consciousness of unspecified duration, sequela Assessment and Plan: tolerated first ect continue as tolerated consider change to non depolarizing agent from succinylcholine Lidocaine started for back pain monitor safety Greater than 50% of the session was spent on counseling and/or coordination of care Reason for contiued inpatient stay Substantial Risk for: harm to self
[2021-05-30 06:00] VITALS: BP 153/72; PULSE 69; RESP 16; TEMP 36.7; O2SAT 96
[2021-05-30 07:00] VITALS: BMI 28.5
[2021-05-30 09:06] VITALS: BP 149/71; PULSE 64
[2021-05-30] MEDS: amLODIPine Besylate 5 MG TABLET PO (09:06)
[2021-05-30] MEDS: Gabapentin 100 MG CAPSULE PO ×2 (09:06→13:26)
[2021-05-30] MEDS: lamoTRIgine 100 MG TABLET PO (09:07)
[2021-05-30] MEDS: Docusate Sodium 100 MG CAPSULE PO ×2 (09:07→21:15)
[2021-05-30] MEDS: Escitalopram Oxalate 10 MG TABLET PO (09:08)
[2021-05-30 09:09] VITALS: BP 149/71; PULSE 64
[2021-05-30] MEDS: lisinopriL 20 MG TABLET PO (09:09)
[2021-05-30] MEDS: ARIPiprazole 10 MG TABLET PO (09:10)
[2021-05-30] MEDS: LORazepam 0.5 MG TABLET PO ×2 (09:10→15:33)
[2021-05-30] MEDS: Finasteride 5 MG TABLET PO (09:10)
[2021-05-30 10:56] VITALS: BP 149/71; PULSE 64
[2021-05-30] MEDS: Lidocaine 4 % Patch ADH..PATCH 1 PATCH TRANSDERMA (10:56)
--- NOTE | 2021-05-30 14:26 | P.PNPSI_ITS ---
Subjective Subjective Date of Service: 05/30/21 Reason For Visit: Depression SI Subjective Notes: Conditional Voluntary Interim History: pt flat cooperative no ill effects from ect noted cooperative with care and treatment remains quite depressed Medication Compliance: Yes Mental Status Exam Mental Status Exam Narrative: Alert, awake, cooperative, in a wheel-chair. He had good eye contact, speech was spontaneous with normal tone slowed mentation somewhat monotone . Mood dysphoric, affect constricted, Thought process logical and goal directed, adequate impulse control in this setting unsafe if were to return to living situation. Anxious preoccupied fearful of returning back to [facility] Diagnostics Vital Signs (24Hr): Vital Signs - 24 hr 05/29/21 18:00 05/30/21 06:00 05/30/21 09:06 Temperature 97.9 F 98.0 F Pulse Rate 73 69 64 Respiratory Rate 18 16 Blood Pressure 132/72 153/72 H 149/71 H Pulse Oximetry 94 96 05/30/21 09:09 05/30/21 10:56 Temperature Pulse Rate 64 64 Respiratory Rate Blood Pressure 149/71 H 149/71 H Pulse Oximetry Body Mass Index 28.5 Labs Results: 05/22/21 12:22 05/23/21 07:25 Imaging Radiology Impressions: ITS Impressions Head CT 05/24/21 15:15 IMPRESSION: 1. Status post prior right craniotomy with scattered right periventricular white matter gliosis and compensatory right ventricular dilatation.. 2. Generalized atrophy with ventricular dilatation and prominent cortical sulci and fissures and cisterns. No edema or mass effect. 3. No intracranial hemorrhage or hematoma or extra-axial fluid collection. Medications Medications Current Medications Generic Name Dose Route Start Last Admin Trade Name Freq PRN Reason Stop Dose Admin Acetaminophen 650 mg 05/22/21 17:28 05/29/21 13:43 Acetaminophen 325 Mg Tablet PO 650 mg Q6H PRN Administration Headache/Pain Mild Scale (1-3) Al Hydroxide/Mg Hydroxide 30 ml 05/22/21 17:28 Magnesium Hydrox/Alum Hydrox 30 Ml Oral.Susp PO Q6H PRN Heartburn/Nausea Albuterol Sulfate 2 puff 05/22/21 22:00 Albuterol Sulfate 90 Mcg 8 Gm Inhaler INHALE Q6H PRN Shortness of Breath/Wheezing Amlodipine Besylate 5 mg 05/25/21 09:00 05/30/21 09:06 Amlodipine Besylate 5 Mg Tablet PO 5 mg DAILY TAZ Administration Protocol Aripiprazole 10 mg 05/23/21 09:00 05/30/21 09:10 Aripiprazole 10 Mg Tablet PO 10 mg DAILY TAZ Administration Docusate Sodium 100 mg 05/23/21 09:00 05/30/21 09:07 Docusate Sodium 100 Mg Capsule PO 100 mg BID TAZ Administration Escitalopram Oxalate 10 mg 05/23/21 09:00 05/30/21 09:08 Escitalopram Oxalate 10 Mg Tablet PO 10 mg DAILY TAZ Administration Finasteride 5 mg 05/23/21 09:00 05/30/21 09:10 Finasteride 5 Mg Tablet PO 5 mg DAILY TAZ Administration Gabapentin 100 mg 05/26/21 08:30 05/30/21 13:26 Gabapentin 100 Mg Capsule PO 100 mg BID@0830,1330 TAZ Administration Ibuprofen 400 mg 05/27/21 09:30 05/29/21 06:11 Ibuprofen 400 Mg Tablet PO 400 mg Q6H PRN Administration Pain, Moderate (Pain Scale 4-6 Lamotrigine 100 mg 05/25/21 09:00 05/30/21 09:07 Lamotrigine 100 Mg Tablet PO 100 mg DAILY TAZ Administration Latanoprost 1 drop 05/27/21 21:00 05/29/21 20:50 Latanoprost 0.005 % Ophth No 2.5 Ml Drops EYE-BOTH 1 drop BEDTIME TAZ Administration Lidocaine 1 patch 05/30/21 09:00 05/30/21 10:56 Lidocaine 4 % Patch Adh..Patch TRANSDERMA 1 patch DAILY TAZ Administration Protocol Lisinopril 20 mg 05/25/21 09:00 05/30/21 09:09 Lisinopril 20 Mg Tablet PO 20 mg DAILY TAZ Administration Protocol Lorazepam 0.5 mg 05/26/21 10:20 05/28/21 13:35 Lorazepam 0.5 Mg Tablet PO 0.5 mg DAILY PRN Administration Anxiety Lorazepam 0.5 mg 05/29/21 09:00 05/30/21 09:10 Lorazepam 0.5 Mg Tablet PO 0.5 mg DAILY TAZ Administration Lorazepam 1 mg 05/29/21 21:00 05/29/21 20:45 Lorazepam 1 Mg Tablet PO 1 mg BEDTIME TAZ Administration Magnesium Hydroxide 30 ml 05/22/21 17:28 Milk Of Magnesia 30 Ml Oral.Susp PO DAILY PRN Constipation Melatonin 6 mg 05/28/21 21:00 05/29/21 20:45 Melatonin 3 Mg Tablet PO 6 mg BEDTIME TAZ Administration Mirtazapine 15 mg 05/22/21 22:15 05/29/21 20:45 Mirtazapine 15 Mg Tablet PO 15 mg BEDTIME TAZ Administration Multivitamins/Minerals 1 tab 05/23/21 09:00 05/30/21 09:09 Multivitamin With Minerals Tablet PO 1 tab DAILY TAZ Administration Ondansetron HCl 4 mg 05/28/21 13:46 Ondansetron Odt 4 Mg Tab.Rapdis TRANSLINGU Q8H PRN Nausea and Vomiting Polyethylene Glycol 17 gm 05/25/21 17:00 05/29/21 16:38 Polyethylene Glycol 3350 17 Gm Powd.Pack PO 17 gm DAILY@1700 TAZ Administration Sodium Biphosphate/Sodium Phosphate 118 ml 05/22/21 21:38 Sodium Phosphate,[place]-Dibasic 133 Ml Enema [place] DAILY PRN Constipation Trazodone HCl 300 mg 05/22/21 22:00 05/29/21 20:45 Trazodone Hcl 100 Mg Tablet PO 300 mg BEDTIME TAZ Administration Allergies Allergies Allergy/AdvReac Type Severity Reaction Status Date / Time fentanyl [FENTANYL] Allergy Intermediate unknown Verified 05/22/21 11:43 Assessment & Plan Assessment & Plan (1) HTN (hypertension): Status: Acute Code(s): I10 - Essential (primary) hypertension (2) Major depressive disorder, recurrent severe without psychotic features: Status: Acute Code(s): F33.2 - Major depressive disorder, recurrent severe without psychotic features (3) Cognitive and neurobehavioral dysfunction following brain injury: Status: Acute Code(s): G31.89 - Other specified degenerative diseases of nervous system; F09 - Unspecified mental disorder due to known physiological condition; S06.9X9S - Unspecified intracranial injury with loss of consciousness of unspecified duration, sequela Assessment and Plan: tolerated first ect continue as tolerated consider change to non depolarizing agent from succinylcholine Lidocaine started for back pain monitor safety Increase mirtazapine lower Lexapro Greater than 50% of the session was spent on counseling and/or coordination of care Reason for contiued inpatient stay Substantial Risk for: harm to self
[2021-05-30] MEDS: polyethylene glycoL 3350 17 GM POWD.PACK PO (17:17)
[2021-05-30 18:00] VITALS: BP 141/84; PULSE 64; RESP 16; TEMP 36.2; O2SAT 95
[2021-05-30] MEDS: Melatonin 3 MG TABLET 6 MG PO (21:15)
[2021-05-30] MEDS: traZODone HCL 100 MG TABLET 300 MG PO (21:15)
[2021-05-30] MEDS: Mirtazapine 15 MG TABLET PO (21:15)
[2021-05-30] MEDS: Latanoprost 0.005 % Ophth Sol 2.5 ML DROPS 1 DROP EYE-BOTH (21:15)
[2021-05-30] MEDS: LORazepam 1 MG TABLET PO (21:15)
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
[2021-05-31] VITALS (8 sets, daily range): BP systolic 150–211; BP diastolic 76–116; PULSE 63–82; RESP 16–20; TEMP 36.3–37.1; O2SAT 95–99
[2021-05-31] MEDS: Ibuprofen 400 MG TABLET PO (04:16)
--- NOTE | 2021-05-31 09:58 | HO.ANESPROP2 ---
[facility] Active Problems Active Problems: All Active Problems (Updated 05/24/21 @ 23:38 by Addy Haskins MD) Major depressive disorder, recurrent severe without psychotic features (Acute) Cognitive and neurobehavioral dysfunction following brain injury (Acute) HTN (hypertension) (Acute) Past Medical History Medical History Alcohol use disorder, severe, in sustained remission Cognitive and neurobehavioral dysfunction following brain injury Hernia HTN (hypertension) Major depressive disorder, recurrent Major depressive disorder, recurrent severe without psychotic features Surgical History Surgical History H/O brain surgery History of hip replacement S/P cholecystectomy Social History Social History Household Members: Other Household Members Other:: 3 housemates in residential Housing: Other Housing Other:: [facility] Patient Tobacco Use Status: Never used Tobacco Advance Directives Date on File: 05/27/19 service: No Sexual orientation: Straight/Heterosexual Meds Allergies Allergy/AdvReac Type Severity Reaction Status Date / Time fentanyl [FENTANYL] Allergy Intermediate unknown Verified 05/22/21 11:43 Active Medications: Current Medications Generic Name Dose Route Start Last Admin Trade Name Freq PRN Reason Stop Dose Admin Acetaminophen 650 mg 05/22/21 17:28 05/29/21 13:43 Acetaminophen 325 Mg Tablet PO 650 mg Q6H PRN Administration Headache/Pain Mild Scale (1-3) Al Hydroxide/Mg Hydroxide 30 ml 05/22/21 17:28 Magnesium Hydrox/Alum Hydrox 30 Ml Oral.Susp PO Q6H PRN Heartburn/Nausea Albuterol Sulfate 2 puff 05/22/21 22:00 Albuterol Sulfate 90 Mcg 8 Gm Inhaler INHALE Q6H PRN Shortness of Breath/Wheezing Amlodipine Besylate 5 mg 05/25/21 09:00 05/30/21 09:06 Amlodipine Besylate 5 Mg Tablet PO 5 mg DAILY TAZ Administration Protocol Aripiprazole 10 mg 05/23/21 09:00 05/30/21 09:10 Aripiprazole 10 Mg Tablet PO 10 mg DAILY TAZ Administration Docusate Sodium 100 mg 05/23/21 09:00 05/30/21 21:15 Docusate Sodium 100 Mg Capsule PO 100 mg BID TAZ Administration Escitalopram Oxalate 10 mg 05/23/21 09:00 05/30/21 09:08 Escitalopram Oxalate 10 Mg Tablet PO 10 mg DAILY TAZ Administration Finasteride 5 mg 05/23/21 09:00 05/30/21 09:10 Finasteride 5 Mg Tablet PO 5 mg DAILY TAZ Administration Gabapentin 100 mg 05/26/21 08:30 05/30/21 13:26 Gabapentin 100 Mg Capsule PO 100 mg BID@0830,1330 TAZ Administration Ibuprofen 400 mg 05/27/21 09:30 05/31/21 04:16 Ibuprofen 400 Mg Tablet PO 400 mg Q6H PRN Administration Pain, Moderate (Pain Scale 4-6 Lamotrigine 100 mg 05/25/21 09:00 05/30/21 09:07 Lamotrigine 100 Mg Tablet PO 100 mg DAILY TAZ Administration Latanoprost 1 drop 05/27/21 21:00 05/30/21 21:15 Latanoprost 0.005 % Ophth No 2.5 Ml Drops EYE-BOTH 1 drop BEDTIME TAZ Administration Lidocaine 1 patch 05/30/21 09:00 05/30/21 10:56 Lidocaine 4 % Patch Adh..Patch TRANSDERMA 1 patch DAILY TAZ Administration Protocol Lisinopril 20 mg 05/25/21 09:00 05/30/21 09:09 Lisinopril 20 Mg Tablet PO 20 mg DAILY TAZ Administration Protocol Lorazepam 0.5 mg 05/26/21 10:20 05/30/21 15:33 Lorazepam 0.5 Mg Tablet PO 0.5 mg DAILY PRN Administration Anxiety Lorazepam 0.5 mg 05/29/21 09:00 05/30/21 09:10 Lorazepam 0.5 Mg Tablet PO 0.5 mg DAILY TAZ Administration Lorazepam 1 mg 05/29/21 21:00 05/30/21 21:15 Lorazepam 1 Mg Tablet PO 1 mg BEDTIME TAZ Administration Magnesium Hydroxide 30 ml 05/22/21 17:28 Milk Of Magnesia 30 Ml Oral.Susp PO DAILY PRN Constipation Melatonin 6 mg 05/28/21 21:00 05/30/21 21:15 Melatonin 3 Mg Tablet PO 6 mg BEDTIME TAZ Administration Mirtazapine 22.5 mg 05/31/21 21:00 Mirtazapine 7.5 Mg Tablet PO BEDTIME TAZ Multivitamins/Minerals 1 tab 05/23/21 09:00 05/30/21 09:09 Multivitamin With Minerals Tablet PO 1 tab DAILY TAZ Administration Ondansetron HCl 4 mg 05/28/21 13:46 Ondansetron Odt 4 Mg Tab.Rapdis TRANSLINGU Q8H PRN Nausea and Vomiting Polyethylene Glycol 17 gm 05/25/21 17:00 05/30/21 17:17 Polyethylene Glycol 3350 17 Gm Powd.Pack PO 17 gm DAILY@1700 TAZ Administration Sodium Biphosphate/Sodium Phosphate 118 ml 05/22/21 21:38 Sodium Phosphate,[place]-Dibasic 133 Ml Enema [place] DAILY PRN Constipation Trazodone HCl 300 mg 05/22/21 22:00 05/30/21 21:15 Trazodone Hcl 100 Mg Tablet PO 300 mg BEDTIME TAZ Administration Home Medications Medication Instructions Recorded Confirmed Last Taken Type Tylenol 650 mg PO Q6-8H PRN 05/22/21 05/22/21 Unknown History Tylenol Arthritis Pain 650 mg PO DAILY 05/22/21 05/22/21 Unknown History albuterol [Ventolin] See Rx Instructions .ROUTE .COMPLEX 05/22/21 05/22/21 Unknown History amantadine HCl 1 tab PO BID 05/22/21 05/22/21 Unknown History aripiprazole 1 tab PO DAILY 05/22/21 05/22/21 Unknown History clotrimazole See Rx Instructions .ROUTE 05/22/21 05/22/21 Unknown History .COMPLEX PRN dextromethorphan-guaifenesin 10 ml PO Q6-8H PRN 05/22/21 05/22/21 Unknown History [Robitussin DM Max] docusate sodium 1 cap PO BID 05/22/21 05/22/21 Unknown History docusate sodium See Rx Instructions .ROUTE 05/22/21 05/22/21 Unknown History .COMPLEX PRN escitalopram oxalate 1 tab PO DAILY 05/22/21 05/22/21 Unknown History finasteride 1 tab PO DAILY 05/22/21 05/22/21 Unknown History gabapentin enacarbil [Horizant] 1 tab PO BID 05/22/21 05/22/21 Unknown History glycerin [Artificial Tears 1 drp OPHTHALMIC (EYE) Q1-2H PRN 05/22/21 05/22/21 Unknown History (glycerin)] lamotrigine 1 tab PO DAILY 05/22/21 05/22/21 Unknown History lamotrigine 1 tab PO DAILY 05/22/21 05/22/21 Unknown History latanoprost 1 drp OPHTHALMIC (EYE) DAILY 05/22/21 05/22/21 Unknown History lisinopril 1 tab PO DAILY 05/22/21 05/22/21 Unknown History lorazepam 1 tab PO DAILY 05/22/21 05/22/21 Unknown History lorazepam 1 tab PO DAILY 05/22/21 05/22/21 Unknown History lorazepam 1 tab PO DAILY PRN 05/22/21 05/22/21 Unknown History magnesium hydroxide [Milk of 2,400 mg PO PRN 05/22/21 Unknown History Magnesia] melatonin 5 mg PO BEDTIME 05/22/21 05/22/21 Unknown History thogtxueluha-eaqyufof-wlksmv 1 tab PO DAILY 05/22/21 05/22/21 Unknown History [Centrum Silver] polyethylene glycol 3350 17 g PO DAILY 05/22/21 05/22/21 Unknown History polyethylene glycol 3350 17 g PO DAILY PRN 05/22/21 05/22/21 Unknown History psyllium husk [Metamucil] 0.4 g PO DAILY 05/22/21 05/22/21 Unknown History sodium phosphates [Fleet Enema] 118 ml IN DAILY PRN 05/22/21 05/22/21 Unknown History trazodone 2 tab PO BEDTIME 05/22/21 05/22/21 Unknown History Exam Exam Date and Time: May 31, 2021 0958 Height,Weight and Vital Signs: Height 6 ft 2 in Weight 100.6 kg Last Vital Signs Temp 97.4 F 05/31/21 06:00 Pulse 63 05/31/21 06:00 Resp 16 05/31/21 06:00 BP 160/84 H 05/31/21 06:00 Pulse Ox 96 05/31/21 06:00 Pertinent Lab Results Pertinent Lab Results: Laboratory Tests 05/22/21 05/22/21 05/22/21 12:22 12:22 12:22 WBC 6.1 RBC 4.30 L Hgb 14.4 Hct 42.3 MCV 98.4 H MCH 33.5 H MCHC 34.0 RDW 11.4 Plt Count 159 L MPV 9.8 Immature Gran % (Auto) 0.7 H Neut % (Auto) 59.8 Lymph % (Auto) 25.8 [place]aver % (Auto) 8.9 Eos % (Auto) 4.3 H Baso % (Auto) 0.5 Lymph # (Auto) 1.6 [place]aver # (Auto) 0.5 Eos # (Auto) 0.3 Baso # (Auto) 0.0 Abs Immat Gran (auto) 0.04 H Absolute Neuts (auto) 3.6 Absolute Nucleated RBC 0.000 Nucleated RBC % (auto) 0.0 Sodium 139 Potassium 4.1 Chloride 105 Carbon Dioxide 24 Anion Gap 14 BUN 13 Creatinine 0.86 Estim Creat Clear Calc 98.2 Estimated GFR > 60 Random Glucose 85 Fasting Glucose Calcium 9.4 Magnesium Total Bilirubin 0.9 Direct Bilirubin 0.4 AST 26 ALT 45 H Alkaline Phosphatase 81 D Total Protein 6.8 Albumin 4.4 Triglycerides Cholesterol LDL Cholesterol, Calc HDL Cholesterol Vitamin B12 Folate TSH Free T4 Lamotrigine Ethyl Alcohol < 10 COVID-19 ([facility]ACHEL) COVID-Saavn Com 05/22/21 05/23/21 05/23/21 14:25 07:25 07:25 WBC RBC Hgb Hct MCV MCH MCHC RDW Plt Count MPV Immature Gran % (Auto) Neut % (Auto) Lymph % (Auto) Beaver % (Auto) Eos % (Auto) Baso % (Auto) Lymph # (Auto) [place]aver # (Auto) Eos # (Auto) Baso # (Auto) Abs Immat Gran (auto) Absolute Neuts (auto) Absolute Nucleated RBC Nucleated RBC % (auto) Sodium 140 Potassium 4.0 Chloride 106 Carbon Dioxide 26 Anion Gap 12 BUN 16 Creatinine 0.89 Estim Creat Clear Calc 94.9 Estimated GFR > 60 Random Glucose Fasting Glucose 91 Calcium 9.4 Magnesium 2.2 Total Bilirubin 0.6 Direct Bilirubin AST 26 ALT 43 H Alkaline Phosphatase 88 Total Protein 6.5 Albumin 4.2 Triglycerides 74 Cholesterol 167 LDL Cholesterol, Calc 109 HDL Cholesterol 44 Vitamin B12 757 Folate 19.9 TSH 0.63 Free T4 0.90 Lamotrigine Ethyl Alcohol COVID-19 ([facility]ACHEL) Negative COVID-19 Clin Com See Note 05/23/21 07:25 WBC RBC Hgb Hct MCV MCH MCHC RDW Plt Count MPV Immature Gran % (Auto) Neut % (Auto) Lymph % (Auto) Beaver % (Auto) Eos % (Auto) Baso % (Auto) Lymph # (Auto) Beaver # (Auto) Eos # (Auto) Baso # (Auto) Abs Immat Gran (auto) Absolute Neuts (auto) Absolute Nucleated RBC Nucleated RBC % (auto) Sodium Potassium Chloride Carbon Dioxide Anion Gap BUN Creatinine Estim Creat Clear Calc Estimated GFR Random Glucose Fasting Glucose Calcium Magnesium Total Bilirubin Direct Bilirubin AST ALT Alkaline Phosphatase Total Protein Albumin Triglycerides Cholesterol LDL Cholesterol, Calc HDL Cholesterol Vitamin B12 Folate TSH Free T4 Lamotrigine 7.2 Ethyl Alcohol COVID-19 ([facility]ACHEL) COVID-19 Clin Com Airway Mallampati Class: II TM Dist: >3cm Neck ROM: Full Assessment and Plan Assessment Anesthesia Assessment: Anesthesia Plan Discussed and Chart Reviewed Final Anesthetic Review NPO: Yes ASA Class: III Final Preanesthetic Review: No Changes in Pt Med Stat, Meds/Allgs Chart Reviewed, Consent Obtained/Reviewed and Anes Risks/Benef Reviewed Patient Risk: Intermediate Procedure Risk: Low Assessment/Block/Sedation in SS: Assess/Block/Sedation-SS Anesthetic Plan Anesthetic Plan: GA and Regional Block
--- NOTE | 2021-05-31 10:02 | MHC.SHP ---
Pre-Procedural Eval Section A Date of Service: 05/31/21 The patient is an INPATIENT: Yes Changes since office visit: Yes Changes in Medication and Yes Patient answered all questions; No Cold of Flu in the past 2 weeks and No New Medical Problems The History & Physical has been completed within 30 days and I have reviewed it.: Yes Section B Chief Complaint: Depression SI Allergies: Allergies Allergy/AdvReac Type Severity Reaction Status Date / Time fentanyl [FENTANYL] Allergy Intermediate unknown Verified 05/22/21 11:43 Plan I have reviewed the history and physical and performed a pertinent physical examination on my patient. No changes have occurred unless specified.
[2021-05-31] MEDS: 0.9 % Sodium Chloride 500 ML 20 ML IVCONT (10:04)
[2021-05-31] MEDS: Gabapentin 100 MG CAPSULE PO (11:45)
[2021-05-31] MEDS: amLODIPine Besylate 5 MG TABLET PO (11:46)
[2021-05-31] MEDS: ARIPiprazole 10 MG TABLET PO (11:46)
[2021-05-31] MEDS: Docusate Sodium 100 MG CAPSULE PO ×2 (11:47→20:59)
[2021-05-31] MEDS: Escitalopram Oxalate 10 MG TABLET PO (11:47)
[2021-05-31] MEDS: Finasteride 5 MG TABLET PO (11:47)
[2021-05-31] MEDS: lisinopriL 20 MG TABLET PO (11:47)
[2021-05-31] MEDS: lamoTRIgine 100 MG TABLET PO (11:47)
[2021-05-31] MEDS: LORazepam 0.5 MG TABLET PO (11:48)
[2021-05-31] MEDS: polyethylene glycoL 3350 17 GM POWD.PACK PO (18:15)
[2021-05-31] MEDS: Mirtazapine 7.5 MG TABLET 22.5 MG PO (20:59)
[2021-05-31] MEDS: traZODone HCL 100 MG TABLET 300 MG PO (21:00)
[2021-05-31] MEDS: Melatonin 3 MG TABLET 6 MG PO (21:00)
[2021-05-31] MEDS: LORazepam 1 MG TABLET PO (21:00)
[2021-05-31] MEDS: Latanoprost 0.005 % Ophth Sol 2.5 ML DROPS 1 DROP EYE-BOTH (21:08)
[2021-05-31] MEDS: Acetaminophen 325 MG TABLET 650 MG PO (21:08)
--- NOTE | 2021-05-31 21:52 | HO.ECTPROC ---
ECT Procedure Note Diagnosis/Treatment Date of Service: 05/31/21 Diagnosis: Major Depressive Disorder Current Treatment Number: 2 ECT Settings Device: THYMATRON DGx Electrode Placement: Bifrontal Program/Pulse Width: 0.25 Energy Percent: 70 Seizure Duration By EEG (in seconds): 46 Medications Administration General Anesthetic: Etomidate (12plus 4 ) Muscle Relaxant: Succinylcholine (100) Ancillary Medications Analgesics: Torodol - Pre ECT Anti-emetics: Zofran - Pre ECT Cardiovascular Medications: Labetolol (20 mg post for htn) Miscillaneous Medications: Propofol Airway Management Airway Management: Bag Mask Ventilation Treatment Recommendations Notes: had ect post op htn given labetolol will give lisinopril amlodipine in am of ect
--- NOTE | 2021-05-31 22:34 | HO.ECTPROC ---
ECT Procedure Note Diagnosis/Treatment Date of Service: 05/31/21 ECT Settings Device: THYMATRON DGx
[2021-06-01 06:00] VITALS: BP 179/79; PULSE 55; RESP 14; TEMP 36.4; O2SAT 95
[2021-06-01] MEDS: Docusate Sodium 100 MG CAPSULE PO ×2 (08:49→20:25)
[2021-06-01] MEDS: ARIPiprazole 10 MG TABLET PO (08:49)
[2021-06-01] MEDS: lamoTRIgine 100 MG TABLET PO (08:49)
[2021-06-01] MEDS: Gabapentin 100 MG CAPSULE PO ×2 (08:50→13:14)
[2021-06-01] MEDS: LORazepam 0.5 MG TABLET PO ×2 (08:50→13:22)
[2021-06-01 08:53] VITALS: BP 178/76; PULSE 58
[2021-06-01] MEDS: amLODIPine Besylate 5 MG TABLET PO (08:53)
[2021-06-01 08:54] VITALS: BP 178/76; PULSE 58
[2021-06-01] MEDS: lisinopriL 20 MG TABLET PO (08:54)
[2021-06-01] MEDS: Finasteride 5 MG TABLET PO (08:54)
[2021-06-01] MEDS: Escitalopram Oxalate 10 MG TABLET PO (08:55)
[2021-06-01] MEDS: Lidocaine 4 % Patch ADH..PATCH 1 PATCH TRANSDERMA (08:56)
[2021-06-01] MEDS: Albuterol Sulfate 90 MCG 8 GM INHALER 2 PUFF INHALE (09:31)
--- NOTE | 2021-06-01 10:49 | P.PNGPS_ITS ---
Subjective/Objective Subjective Current Medications: Active Medications Generic Name Dose Route Start Last Admin Trade Name Freq PRN Reason Stop Dose Admin Acetaminophen 650 mg 05/22/21 17:28 05/31/21 21:08 Acetaminophen 325 Mg Tablet PO 650 mg Q6H PRN Administration Headache/Pain Mild Scale (1-3) Al Hydroxide/Mg Hydroxide 30 ml 05/22/21 17:28 Magnesium Hydrox/Alum Hydrox 30 Ml Oral.Susp PO Q6H PRN Heartburn/Nausea Albuterol Sulfate 2 puff 05/22/21 22:00 06/01/21 09:31 Albuterol Sulfate 90 Mcg 8 Gm Inhaler INHALE 2 puff Q6H PRN Administration Shortness of Breath/Wheezing Amlodipine Besylate 5 mg 05/25/21 09:00 06/01/21 08:53 Amlodipine Besylate 5 Mg Tablet PO 5 mg DAILY TAZ Administration Protocol Aripiprazole 10 mg 05/23/21 09:00 06/01/21 08:49 Aripiprazole 10 Mg Tablet PO 10 mg DAILY TAZ Administration Docusate Sodium 100 mg 05/23/21 09:00 06/01/21 08:49 Docusate Sodium 100 Mg Capsule PO 100 mg BID TAZ Administration Escitalopram Oxalate 10 mg 05/23/21 09:00 06/01/21 08:55 Escitalopram Oxalate 10 Mg Tablet PO 10 mg DAILY TAZ Administration Finasteride 5 mg 05/23/21 09:00 06/01/21 08:54 Finasteride 5 Mg Tablet PO 5 mg DAILY TAZ Administration Gabapentin 100 mg 05/26/21 08:30 06/01/21 08:50 Gabapentin 100 Mg Capsule PO 100 mg BID@0830,1330 TAZ Administration Ibuprofen 400 mg 05/27/21 09:30 05/31/21 04:16 Ibuprofen 400 Mg Tablet PO 400 mg Q6H PRN Administration Pain, Moderate (Pain Scale 4-6 Lamotrigine 100 mg 05/25/21 09:00 06/01/21 08:49 Lamotrigine 100 Mg Tablet PO 100 mg DAILY TAZ Administration Latanoprost 1 drop 05/27/21 21:00 05/31/21 21:08 Latanoprost 0.005 % Ophth No 2.5 Ml Drops EYE-BOTH 1 drop BEDTIME TAZ Administration Lidocaine 1 patch 05/30/21 09:00 06/01/21 08:56 Lidocaine 4 % Patch Adh..Patch TRANSDERMA 1 patch DAILY TAZ Administration Protocol Lisinopril 20 mg 05/25/21 09:00 06/01/21 08:54 Lisinopril 20 Mg Tablet PO 20 mg DAILY TAZ Administration Protocol Lorazepam 0.5 mg 05/26/21 10:20 05/30/21 15:33 Lorazepam 0.5 Mg Tablet PO 0.5 mg DAILY PRN Administration Anxiety Lorazepam 0.5 mg 05/29/21 09:00 06/01/21 08:50 Lorazepam 0.5 Mg Tablet PO 0.5 mg DAILY TAZ Administration Lorazepam 1 mg 05/29/21 21:00 05/31/21 21:00 Lorazepam 1 Mg Tablet PO 1 mg BEDTIME TAZ Administration Magnesium Hydroxide 30 ml 05/22/21 17:28 Milk Of Magnesia 30 Ml Oral.Susp PO DAILY PRN Constipation Melatonin 6 mg 05/28/21 21:00 05/31/21 21:00 Melatonin 3 Mg Tablet PO 6 mg BEDTIME TAZ Administration Mirtazapine 22.5 mg 05/31/21 21:00 05/31/21 20:59 Mirtazapine 7.5 Mg Tablet PO 22.5 mg BEDTIME TAZ Administration Multivitamins/Minerals 1 tab 05/23/21 09:00 06/01/21 08:49 Multivitamin With Minerals Tablet PO 1 tab DAILY TAZ Administration Ondansetron HCl 4 mg 05/28/21 13:46 Ondansetron Odt 4 Mg Tab.Rapdis TRANSLINGU Q8H PRN Nausea and Vomiting Polyethylene Glycol 17 gm 05/25/21 17:00 05/31/21 18:15 Polyethylene Glycol 3350 17 Gm Powd.Pack PO 17 gm DAILY@1700 TAZ Administration Sodium Biphosphate/Sodium Phosphate 118 ml 05/22/21 21:38 Sodium Phosphate,[place]-Dibasic 133 Ml Enema [place] DAILY PRN Constipation Trazodone HCl 300 mg 05/22/21 22:00 05/31/21 21:00 Trazodone Hcl 100 Mg Tablet PO 300 mg BEDTIME TAZ Administration Data Labs CBC & Chem 7: 05/22/21 12:22 05/23/21 07:25
[2021-06-01] MEDS: polyethylene glycoL 3350 17 GM POWD.PACK PO (16:42)
--- NOTE | 2021-06-01 16:42 | HO.POSTANES ---
Post Anesthesia Evaluation Post Anesthesia Evaluation Vital Signs: Vital Signs Temp Pulse Resp BP Pulse Ox 06/01/21 08:54 58 178/76 H 06/01/21 08:53 58 178/76 H 06/01/21 06:00 97.5 F 55 14 179/79 H 95 Anesthesia: General Mental Status: Awake Pain Control: Satisfactory Nausea/Vomiting: None Hydration: Adequate Anesthesia-Related Issues: No Anes. Related Issues
--- NOTE | 2021-06-01 18:06 | PC.NURSE ---
Tony walked with assist using gait belt and walker the length of hallway and 3/[address] His pulse ox was taken at random intervals during the walk. He remained in the high 90's.
[2021-06-01 18:26] VITALS: BP 134/72; PULSE 90; RESP 18; TEMP 36.7; O2SAT 95
[2021-06-01] MEDS: Melatonin 3 MG TABLET 6 MG PO (20:23)
[2021-06-01] MEDS: Latanoprost 0.005 % Ophth Sol 2.5 ML DROPS 1 DROP EYE-BOTH (20:23)
[2021-06-01] MEDS: Mirtazapine 7.5 MG TABLET 22.5 MG PO (20:24)
[2021-06-01] MEDS: LORazepam 1 MG TABLET PO (20:24)
[2021-06-01] MEDS: traZODone HCL 100 MG TABLET 300 MG PO (20:24)
--- NOTE | 2021-06-01 20:41 | HO.PSYCHPN ---
Subjective Subjective Date of Service: 06/01/21 Reason For Visit: Depression SI Subjective Notes: Conditional Voluntary Healthcare Proxy: Yes Guardianship: No Medical Problems Affecting Mental Status: Yes (hx tbi) Interim History: Patient admitted for ECt due to severe SI, has had 2 treatments less thinking about SI! discussed with patient progress of ECT from here for him Medication Compliance: Yes Side effects from medications: No Attending Groups: Yes Review of Systems Review of Systems denies medication s/e Mental Status Exam Mental Status Exam Patient Appearance: Fatigued and Rigid Patient Orientation: Person, Place, Time and Situation Level of Consciousness: Awake Patient Behavior: Appropriate Mood Description: Calm and Depressed Affect Description: Constricted Patient Cognition Impaired: Yes Ability to Follow Directions: Fair Speech Pattern: Clear Memory Description: Immediate Impaired and Normal for Patient Hallucinations: None Delusions: Not Present Thought Process: Intact and Goal Oriented Thought Content: positive for Intact and positive for [place] Depressive Symptoms: Diff. Making Decisions, Loss of Int. in Activity, Feelings of Worthlessness and Hopelessness Abnormal Motor Activity Signs and Symptoms: Psychomotor Retardation and Muscle Rigidity (? part of tbi) Judgement: Fair Diagnostics Vital Signs (24Hr): Vital Signs - 24 hr 06/01/21 06:00 06/01/21 08:53 06/01/21 08:54 Temperature 97.5 F Pulse Rate 55 58 58 Respiratory Rate 14 Blood Pressure 179/79 H 178/76 H 178/76 H Pulse Oximetry 95 06/01/21 18:26 Temperature 98.1 F Pulse Rate 90 Respiratory Rate 18 Blood Pressure 134/72 Pulse Oximetry 95 Body Mass Index 28.5 Labs Results: 05/22/21 12:22 05/23/21 07:25 Imaging Radiology Impressions: ITS Impressions Head CT 05/24/21 15:15 IMPRESSION: 1. Status post prior right craniotomy with scattered right periventricular white matter gliosis and compensatory right ventricular dilatation.. 2. Generalized atrophy with ventricular dilatation and prominent cortical sulci and fissures and cisterns. No edema or mass effect. 3. No intracranial hemorrhage or hematoma or extra-axial fluid collection. Medications Medications Current Medications Generic Name Dose Route Start Last Admin Trade Name Freq PRN Reason Stop Dose Admin Acetaminophen 650 mg 05/22/21 17:28 05/31/21 21:08 Acetaminophen 325 Mg Tablet PO 650 mg Q6H PRN Administration Headache/Pain Mild Scale (1-3) Al Hydroxide/Mg Hydroxide 30 ml 05/22/21 17:28 Magnesium Hydrox/Alum Hydrox 30 Ml Oral.Susp PO Q6H PRN Heartburn/Nausea Albuterol Sulfate 2 puff 05/22/21 22:00 06/01/21 09:31 Albuterol Sulfate 90 Mcg 8 Gm Inhaler INHALE 2 puff Q6H PRN Administration Shortness of Breath/Wheezing Amlodipine Besylate 5 mg 05/25/21 09:00 06/01/21 08:53 Amlodipine Besylate 5 Mg Tablet PO 5 mg DAILY TAZ Administration Protocol Aripiprazole 10 mg 05/23/21 09:00 06/01/21 08:49 Aripiprazole 10 Mg Tablet PO 10 mg DAILY TAZ Administration Docusate Sodium 100 mg 05/23/21 09:00 06/01/21 20:25 Docusate Sodium 100 Mg Capsule PO 100 mg BID TAZ Administration Escitalopram Oxalate 10 mg 05/23/21 09:00 06/01/21 08:55 Escitalopram Oxalate 10 Mg Tablet PO 10 mg DAILY TAZ Administration Finasteride 5 mg 05/23/21 09:00 06/01/21 08:54 Finasteride 5 Mg Tablet PO 5 mg DAILY TAZ Administration Gabapentin 100 mg 05/26/21 08:30 06/01/21 13:14 Gabapentin 100 Mg Capsule PO 100 mg BID@0830,1330 TAZ Administration Ibuprofen 400 mg 05/27/21 09:30 05/31/21 04:16 Ibuprofen 400 Mg Tablet PO 400 mg Q6H PRN Administration Pain, Moderate (Pain Scale 4-6 Lamotrigine 100 mg 05/25/21 09:00 06/01/21 08:49 Lamotrigine 100 Mg Tablet PO 100 mg DAILY TAZ Administration Latanoprost 1 drop 05/27/21 21:00 06/01/21 20:23 Latanoprost 0.005 % Ophth No 2.5 Ml Drops EYE-BOTH 1 drop BEDTIME TAZ Administration Lidocaine 1 patch 05/30/21 09:00 06/01/21 08:56 Lidocaine 4 % Patch Adh..Patch TRANSDERMA 1 patch DAILY TAZ Administration Protocol Lisinopril 20 mg 05/25/21 09:00 06/01/21 08:54 Lisinopril 20 Mg Tablet PO 20 mg DAILY TAZ Administration Protocol Lorazepam 0.5 mg 05/26/21 10:20 06/01/21 13:22 Lorazepam 0.5 Mg Tablet PO 0.5 mg DAILY PRN Administration Anxiety Lorazepam 0.5 mg 05/29/21 09:00 06/01/21 08:50 Lorazepam 0.5 Mg Tablet PO 0.5 mg DAILY TAZ Administration Lorazepam 1 mg 05/29/21 21:00 06/01/21 20:24 Lorazepam 1 Mg Tablet PO 1 mg BEDTIME TAZ Administration Magnesium Hydroxide 30 ml 05/22/21 17:28 Milk Of Magnesia 30 Ml Oral.Susp PO DAILY PRN Constipation Melatonin 6 mg 05/28/21 21:00 06/01/21 20:23 Melatonin 3 Mg Tablet PO 6 mg BEDTIME TAZ Administration Mirtazapine 22.5 mg 05/31/21 21:00 06/01/21 20:24 Mirtazapine 7.5 Mg Tablet PO 22.5 mg BEDTIME TAZ Administration Multivitamins/Minerals 1 tab 05/23/21 09:00 06/01/21 08:49 Multivitamin With Minerals Tablet PO 1 tab DAILY TAZ Administration Ondansetron HCl 4 mg 05/28/21 13:46 Ondansetron Odt 4 Mg Tab.Rapdis TRANSLINGU Q8H PRN Nausea and Vomiting Polyethylene Glycol 17 gm 05/25/21 17:00 06/01/21 16:42 Polyethylene Glycol 3350 17 Gm Powd.Pack PO 17 gm DAILY@1700 TAZ Administration Sodium Biphosphate/Sodium Phosphate 118 ml 05/22/21 21:38 Sodium Phosphate,[place]-Dibasic 133 Ml Enema [place] DAILY PRN Constipation Trazodone HCl 300 mg 05/22/21 22:00 06/01/21 20:24 Trazodone Hcl 100 Mg Tablet PO 300 mg BEDTIME TAZ Administration Allergies Allergies Allergy/AdvReac Type Severity Reaction Status Date / Time fentanyl [FENTANYL] Allergy Intermediate unknown Verified 05/22/21 11:43 Assessment & Plan Assessment & Plan (1) HTN (hypertension): Status: Acute Code(s): I10 - Essential (primary) hypertension (2) Major depressive disorder, recurrent severe without psychotic features: Status: Acute Code(s): F33.2 - Major depressive disorder, recurrent severe without psychotic features (3) Cognitive and neurobehavioral dysfunction following brain injury: Status: Acute Code(s): G31.89 - Other specified degenerative diseases of nervous system; F09 - Unspecified mental disorder due to known physiological condition; S06.9X9S - Unspecified intracranial injury with loss of consciousness of unspecified duration, sequela Assessment and Plan: Tolerated 2nd ect better, adjustments to anesthesia meds worked less body aches only a headache last pm - fine today less Suicidal - Greater than 50% of the session was spent on counseling and/or coordination of care Reason for contiued inpatient stay Substantial Risk for: harm to self, inability to function and rapid decompensation
[2021-06-02 06:00] VITALS: BP 144/74; PULSE 63; RESP 16; TEMP 36.5; O2SAT 98
[2021-06-02] MEDS: Gabapentin 100 MG CAPSULE PO ×2 (08:10→13:25)
[2021-06-02] MEDS: Lidocaine 4 % Patch ADH..PATCH 1 PATCH TRANSDERMA (08:10)
[2021-06-02] MEDS: ARIPiprazole 10 MG TABLET PO (08:10)
[2021-06-02] MEDS: LORazepam 0.5 MG TABLET PO ×2 (08:10→14:46)
[2021-06-02] MEDS: lamoTRIgine 100 MG TABLET PO (08:10)
[2021-06-02] MEDS: Docusate Sodium 100 MG CAPSULE PO ×2 (08:10→20:16)
[2021-06-02] MEDS: Escitalopram Oxalate 10 MG TABLET PO (08:10)
[2021-06-02 08:11] VITALS: BP 140/72; PULSE 64
[2021-06-02] MEDS: amLODIPine Besylate 5 MG TABLET PO (08:11)
[2021-06-02] MEDS: Finasteride 5 MG TABLET PO (08:11)
[2021-06-02 08:12] VITALS: BP 140/72; PULSE 64
[2021-06-02] MEDS: lisinopriL 20 MG TABLET PO (08:12)
[2021-06-02] MEDS: Albuterol Sulfate 90 MCG 8 GM INHALER 2 PUFF INHALE (08:45)
--- NOTE | 2021-06-02 11:09 | P.PNPSI_ITS ---
Subjective Subjective Date of Service: 06/02/21 Reason For Visit: Depression SI Subjective Notes: Conditional Voluntary Medical Problems Affecting Mental Status: Yes (tbi- stable effect) Interim History: 65 yo WM feeling better with ECT- walked with walker yesterday less si thought - a bit sore today from walking more yesterday- we discussed deconditioning that may have occured quickly for him He is more future oriented looking to get in to some activity more intellectually stimulating [email or web address] resource Medication Compliance: Yes Side effects from medications: No Attending Groups: Yes Review of Systems Acute medical concerns: No Review of Systems Review of Systems trying to get out of wheel chair more - Mental Status Exam Mental Status Exam Patient Appearance: Well Grooomed and Appropriate Patient Orientation: Person, Place, Time and Situation Level of Consciousness: Awake Patient Behavior: Appropriate Mood Description: Calm Affect Description: Flat (?tbi- though he does appear brighter) Patient Cognition Impaired: Yes Ability to Follow Directions: Good Speech Pattern: Clear Thought Process: Intact Thought Content: positive for Intact Judgement: Fair Diagnostics Vital Signs (24Hr): Vital Signs - 24 hr 06/01/21 18:26 06/02/21 06:00 06/02/21 08:11 Temperature 98.1 F 97.7 F Pulse Rate 90 63 64 Respiratory Rate 18 16 Blood Pressure 134/72 144/74 H 140/72 H Pulse Oximetry 95 98 06/02/21 08:12 Temperature Pulse Rate 64 Respiratory Rate Blood Pressure 140/72 H Pulse Oximetry Body Mass Index 28.5 Labs Results: 05/22/21 12:22 05/23/21 07:25 Imaging Radiology Impressions: ITS Impressions Head CT 05/24/21 15:15 IMPRESSION: 1. Status post prior right craniotomy with scattered right periventricular white matter gliosis and compensatory right ventricular dilatation.. 2. Generalized atrophy with ventricular dilatation and prominent cortical sulci and fissures and cisterns. No edema or mass effect. 3. No intracranial hemorrhage or hematoma or extra-axial fluid collection. Medications Medications Current Medications Generic Name Dose Route Start Last Admin Trade Name Freq PRN Reason Stop Dose Admin Acetaminophen 650 mg 05/22/21 17:28 05/31/21 21:08 Acetaminophen 325 Mg Tablet PO 650 mg Q6H PRN Administration Headache/Pain Mild Scale (1-3) Al Hydroxide/Mg Hydroxide 30 ml 05/22/21 17:28 Magnesium Hydrox/Alum Hydrox 30 Ml Oral.Susp PO Q6H PRN Heartburn/Nausea Albuterol Sulfate 2 puff 05/22/21 22:00 06/02/21 08:45 Albuterol Sulfate 90 Mcg 8 Gm Inhaler INHALE 2 puff Q6H PRN Administration Shortness of Breath/Wheezing Amlodipine Besylate 5 mg 05/25/21 09:00 06/02/21 08:11 Amlodipine Besylate 5 Mg Tablet PO 5 mg DAILY TAZ Administration Protocol Aripiprazole 10 mg 05/23/21 09:00 06/02/21 08:10 Aripiprazole 10 Mg Tablet PO 10 mg DAILY TAZ Administration Docusate Sodium 100 mg 05/23/21 09:00 06/02/21 08:10 Docusate Sodium 100 Mg Capsule PO 100 mg BID TAZ Administration Escitalopram Oxalate 10 mg 05/23/21 09:00 06/02/21 08:10 Escitalopram Oxalate 10 Mg Tablet PO 10 mg DAILY TAZ Administration Finasteride 5 mg 05/23/21 09:00 06/02/21 08:11 Finasteride 5 Mg Tablet PO 5 mg DAILY TAZ Administration Gabapentin 100 mg 05/26/21 08:30 06/02/21 08:10 Gabapentin 100 Mg Capsule PO 100 mg BID@0830,1330 TAZ Administration Ibuprofen 400 mg 05/27/21 09:30 05/31/21 04:16 Ibuprofen 400 Mg Tablet PO 400 mg Q6H PRN Administration Pain, Moderate (Pain Scale 4-6 Lamotrigine 100 mg 05/25/21 09:00 06/02/21 08:10 Lamotrigine 100 Mg Tablet PO 100 mg DAILY TAZ Administration Latanoprost 1 drop 05/27/21 21:00 06/01/21 20:23 Latanoprost 0.005 % Ophth No 2.5 Ml Drops EYE-BOTH 1 drop BEDTIME TAZ Administration Lidocaine 1 patch 05/30/21 09:00 06/02/21 08:10 Lidocaine 4 % Patch Adh..Patch TRANSDERMA 1 patch DAILY TAZ Administration Protocol Lisinopril 20 mg 05/25/21 09:00 06/02/21 08:12 Lisinopril 20 Mg Tablet PO 20 mg DAILY TAZ Administration Protocol Lorazepam 0.5 mg 05/26/21 10:20 06/01/21 13:22 Lorazepam 0.5 Mg Tablet PO 0.5 mg DAILY PRN Administration Anxiety Lorazepam 0.5 mg 05/29/21 09:00 06/02/21 08:10 Lorazepam 0.5 Mg Tablet PO 0.5 mg DAILY TAZ Administration Lorazepam 1 mg 05/29/21 21:00 06/01/21 20:24 Lorazepam 1 Mg Tablet PO 1 mg BEDTIME TAZ Administration Magnesium Hydroxide 30 ml 05/22/21 17:28 Milk Of Magnesia 30 Ml Oral.Susp PO DAILY PRN Constipation Melatonin 6 mg 05/28/21 21:00 06/01/21 20:23 Melatonin 3 Mg Tablet PO 6 mg BEDTIME TAZ Administration Mirtazapine 22.5 mg 05/31/21 21:00 06/01/21 20:24 Mirtazapine 7.5 Mg Tablet PO 22.5 mg BEDTIME TAZ Administration Multivitamins/Minerals 1 tab 05/23/21 09:00 06/02/21 08:10 Multivitamin With Minerals Tablet PO 1 tab DAILY TAZ Administration Ondansetron HCl 4 mg 05/28/21 13:46 Ondansetron Odt 4 Mg Tab.Rapdis TRANSLINGU Q8H PRN Nausea and Vomiting Polyethylene Glycol 17 gm 05/25/21 17:00 06/01/21 16:42 Polyethylene Glycol 3350 17 Gm Powd.Pack PO 17 gm DAILY@1700 TAZ Administration Sodium Biphosphate/Sodium Phosphate 118 ml 05/22/21 21:38 Sodium Phosphate,[place]-Dibasic 133 Ml Enema [place] DAILY PRN Constipation Trazodone HCl 300 mg 05/22/21 22:00 06/01/21 20:24 Trazodone Hcl 100 Mg Tablet PO 300 mg BEDTIME TAZ Administration Allergies Allergies Allergy/AdvReac Type Severity Reaction Status Date / Time fentanyl [FENTANYL] Allergy Intermediate unknown Verified 05/22/21 11:43 Assessment & Plan Assessment & Plan (1) HTN (hypertension): Status: Acute Code(s): I10 - Essential (primary) hypertension (2) Major depressive disorder, recurrent severe without psychotic features: Status: Acute Code(s): F33.2 - Major depressive disorder, recurrent severe without psychotic features (3) Cognitive and neurobehavioral dysfunction following brain injury: Status: Acute Code(s): G31.89 - Other specified degenerative diseases of nervous system; F09 - Unspecified mental disorder due to known physiological condition; S06.9X9S - Unspecified intracranial injury with loss of consciousness of unspecified duration, sequela Assessment and Plan: responding already to ECT x2 ! less si- brighter affect thinking of future more Greater than 50% of the session was spent on counseling and/or coordination of care Reason for contiued inpatient stay Substantial Risk for: harm to self and rapid decompensation
[2021-06-02] MEDS: polyethylene glycoL 3350 17 GM POWD.PACK PO (16:24)
[2021-06-02 18:00] VITALS: BP 141/75; PULSE 76; RESP 16; TEMP 36.6; O2SAT 95
[2021-06-02] MEDS: traZODone HCL 100 MG TABLET 300 MG PO (20:17)
[2021-06-02] MEDS: Mirtazapine 7.5 MG TABLET 22.5 MG PO (20:17)
[2021-06-02] MEDS: Melatonin 3 MG TABLET 6 MG PO (20:18)
[2021-06-02] MEDS: Latanoprost 0.005 % Ophth Sol 2.5 ML DROPS 1 DROP EYE-BOTH (20:20)
[2021-06-03] VITALS (12 sets, daily range): BP systolic 135–181; BP diastolic 67–99; PULSE 57–68; RESP 16–20; TEMP 36.2–36.6; O2SAT 95–100
[2021-06-03] MEDS: Acetaminophen 325 MG TABLET 650 MG PO ×2 (04:31→23:16)
[2021-06-03] MEDS: amLODIPine Besylate 5 MG TABLET PO (05:35)
--- NOTE | 2021-06-03 06:58 | MHC.SHP ---
Pre-Procedural Eval Section A Date of Service: 06/03/21 The patient is an INPATIENT: Yes Changes since office visit: No Cold of Flu in the past 2 weeks, No New Medical Problems, No Changes in Medication and No Patient answered all questions The History & Physical has been completed within 30 days and I have reviewed it.: Yes Section B Chief Complaint: Depression SI Allergies: Allergies Allergy/AdvReac Type Severity Reaction Status Date / Time fentanyl [FENTANYL] Allergy Intermediate unknown Verified 05/22/21 11:43 Plan I have reviewed the history and physical and performed a pertinent physical examination on my patient. No changes have occurred unless specified.
--- NOTE | 2021-06-03 07:00 | HO.ECTPROC ---
ECT Procedure Note Diagnosis/Treatment Date of Service: 06/03/21 Diagnosis: Major Depressive Disorder Previous ECT Date: 05/31/21 Current Treatment Number: 3 Treatment: Series Interval Clinical Notes: The patient remains dysphoric, he reported mild improvement of mood since last ECT ECT Settings Device: THYMATRON DGx Electrode Placement: Bifrontal Program/Pulse Width: 0.25 Energy Percent: 70 Seizure Duration By EEG (in seconds): 55 By Motor Observation (in seconds): 31 Medications Administration General Anesthetic: Etomidate (16) Muscle Relaxant: Succinylcholine (100) Ancillary Medications Analgesics: Torodol - Pre ECT Anti-emetics: Zofran - Pre ECT Cardiovascular Medications: Labetolol Airway Management Airway Management: Bag Mask Ventilation Treatment Recommendations No Changes Recommended: No change Pt Tolerated Procedure w/o Issue: Yes
--- NOTE | 2021-06-03 07:04 | P.CONAN_ITS ---
[facility] Active Problems Active Problems: All Active Problems (Updated 05/24/21 @ 23:38 by Addy Haskins MD) Major depressive disorder, recurrent severe without psychotic features (Acute) Cognitive and neurobehavioral dysfunction following brain injury (Acute) HTN (hypertension) (Acute) Past Medical History Medical History Alcohol use disorder, severe, in sustained remission Cognitive and neurobehavioral dysfunction following brain injury Hernia HTN (hypertension) Major depressive disorder, recurrent Major depressive disorder, recurrent severe without psychotic features Surgical History Surgical History H/O brain surgery History of hip replacement S/P cholecystectomy Social History Social History Household Members: Other Household Members Other:: 3 housemates in correction Housing: Other Housing Other:: Assisted Patient Tobacco Use Status: Never used Tobacco Advance Directives Date on File: 05/27/19 service: No Sexual orientation: Straight/Heterosexual Meds Allergies Allergy/AdvReac Type Severity Reaction Status Date / Time fentanyl [FENTANYL] Allergy Intermediate unknown Verified 05/22/21 11:43 Active Medications: Current Medications Generic Name Dose Route Start Last Admin Trade Name Freq PRN Reason Stop Dose Admin Acetaminophen 650 mg 05/22/21 17:28 06/03/21 04:31 Acetaminophen 325 Mg Tablet PO 650 mg Q6H PRN Administration Headache/Pain Mild Scale (1-3) Al Hydroxide/Mg Hydroxide 30 ml 05/22/21 17:28 Magnesium Hydrox/Alum Hydrox 30 Ml Oral.Susp PO Q6H PRN Heartburn/Nausea Albuterol Sulfate 2 puff 05/22/21 22:00 06/02/21 08:45 Albuterol Sulfate 90 Mcg 8 Gm Inhaler INHALE 2 puff Q6H PRN Administration Shortness of Breath/Wheezing Amlodipine Besylate 5 mg 05/25/21 09:00 06/03/21 05:35 Amlodipine Besylate 5 Mg Tablet PO 5 mg DAILY TAZ Administration Protocol Aripiprazole 10 mg 05/23/21 09:00 06/02/21 08:10 Aripiprazole 10 Mg Tablet PO 10 mg DAILY TAZ Administration Docusate Sodium 100 mg 05/23/21 09:00 06/02/21 20:16 Docusate Sodium 100 Mg Capsule PO 100 mg BID TAZ Administration Escitalopram Oxalate 10 mg 05/23/21 09:00 06/02/21 08:10 Escitalopram Oxalate 10 Mg Tablet PO 10 mg DAILY TAZ Administration Finasteride 5 mg 05/23/21 09:00 06/02/21 08:11 Finasteride 5 Mg Tablet PO 5 mg DAILY TAZ Administration Gabapentin 100 mg 05/26/21 08:30 06/02/21 13:25 Gabapentin 100 Mg Capsule PO 100 mg BID@0830,1330 TAZ Administration Ibuprofen 400 mg 05/27/21 09:30 05/31/21 04:16 Ibuprofen 400 Mg Tablet PO 400 mg Q6H PRN Administration Pain, Moderate (Pain Scale 4-6 Lamotrigine 100 mg 05/25/21 09:00 06/02/21 08:10 Lamotrigine 100 Mg Tablet PO 100 mg DAILY TAZ Administration Latanoprost 1 drop 05/27/21 21:00 06/02/21 20:20 Latanoprost 0.005 % Ophth No 2.5 Ml Drops EYE-BOTH 1 drop BEDTIME TAZ Administration Lidocaine 1 patch 05/30/21 09:00 06/02/21 08:10 Lidocaine 4 % Patch Adh..Patch TRANSDERMA 1 patch DAILY TAZ Administration Protocol Lisinopril 20 mg 05/25/21 09:00 06/02/21 08:12 Lisinopril 20 Mg Tablet PO 20 mg DAILY TAZ Administration Protocol Lorazepam 0.5 mg 05/26/21 10:20 06/02/21 14:46 Lorazepam 0.5 Mg Tablet PO 0.5 mg DAILY PRN Administration Anxiety Lorazepam 0.5 mg 05/29/21 09:00 06/02/21 08:10 Lorazepam 0.5 Mg Tablet PO 0.5 mg DAILY TAZ Administration Lorazepam 1 mg 05/29/21 21:00 06/02/21 19:27 Lorazepam 1 Mg Tablet PO Not Given BEDTIME TAZ Magnesium Hydroxide 30 ml 05/22/21 17:28 Milk Of Magnesia 30 Ml Oral.Susp PO DAILY PRN Constipation Melatonin 6 mg 05/28/21 21:00 06/02/21 20:18 Melatonin 3 Mg Tablet PO 6 mg BEDTIME TAZ Administration Mirtazapine 22.5 mg 05/31/21 21:00 06/02/21 20:17 Mirtazapine 7.5 Mg Tablet PO 22.5 mg BEDTIME TAZ Administration Multivitamins/Minerals 1 tab 05/23/21 09:00 06/02/21 08:10 Multivitamin With Minerals Tablet PO 1 tab DAILY TAZ Administration Ondansetron HCl 4 mg 05/28/21 13:46 Ondansetron Odt 4 Mg Tab.Rapdis TRANSLINGU Q8H PRN Nausea and Vomiting Polyethylene Glycol 17 gm 05/25/21 17:00 06/02/21 16:24 Polyethylene Glycol 3350 17 Gm Powd.Pack PO 17 gm DAILY@1700 TAZ Administration Sodium Biphosphate/Sodium Phosphate 118 ml 05/22/21 21:38 Sodium Phosphate,[place]-Dibasic 133 Ml Enema [place] DAILY PRN Constipation Trazodone HCl 300 mg 05/22/21 22:00 06/02/21 20:17 Trazodone Hcl 100 Mg Tablet PO 300 mg BEDTIME TAZ Administration Home Medications Medication Instructions Recorded Confirmed Last Taken Type Tylenol 650 mg PO Q6-8H PRN 05/22/21 05/22/21 Unknown History Tylenol Arthritis Pain 650 mg PO DAILY 05/22/21 05/22/21 Unknown History albuterol [Ventolin] See Rx Instructions .ROUTE .COMPLEX 05/22/21 05/22/21 Unknown History amantadine HCl 1 tab PO BID 05/22/21 05/22/21 Unknown History aripiprazole 1 tab PO DAILY 05/22/21 05/22/21 Unknown History clotrimazole See Rx Instructions .ROUTE 05/22/21 05/22/21 Unknown History .COMPLEX PRN dextromethorphan-guaifenesin 10 ml PO Q6-8H PRN 05/22/21 05/22/21 Unknown History [Robitussin DM Max] docusate sodium 1 cap PO BID 05/22/21 05/22/21 Unknown History docusate sodium See Rx Instructions .ROUTE 05/22/21 05/22/21 Unknown History .COMPLEX PRN escitalopram oxalate 1 tab PO DAILY 05/22/21 05/22/21 Unknown History finasteride 1 tab PO DAILY 05/22/21 05/22/21 Unknown History gabapentin enacarbil [Horizant] 1 tab PO BID 05/22/21 05/22/21 Unknown History glycerin [Artificial Tears 1 drp OPHTHALMIC (EYE) Q1-2H PRN 05/22/21 05/22/21 Unknown History (glycerin)] lamotrigine 1 tab PO DAILY 05/22/21 05/22/21 Unknown History lamotrigine 1 tab PO DAILY 05/22/21 05/22/21 Unknown History latanoprost 1 drp OPHTHALMIC (EYE) DAILY 05/22/21 05/22/21 Unknown History lisinopril 1 tab PO DAILY 05/22/21 05/22/21 Unknown History lorazepam 1 tab PO DAILY 05/22/21 05/22/21 Unknown History lorazepam 1 tab PO DAILY 05/22/21 05/22/21 Unknown History lorazepam 1 tab PO DAILY PRN 05/22/21 05/22/21 Unknown History magnesium hydroxide [Milk of 2,400 mg PO PRN 05/22/21 Unknown History Magnesia] melatonin 5 mg PO BEDTIME 05/22/21 05/22/21 Unknown History adrijzzgykja-bsqcrvvn-jybapm 1 tab PO DAILY 05/22/21 05/22/21 Unknown History [Centrum Silver] polyethylene glycol 3350 17 g PO DAILY 05/22/21 05/22/21 Unknown History polyethylene glycol 3350 17 g PO DAILY PRN 05/22/21 05/22/21 Unknown History psyllium husk [Metamucil] 0.4 g PO DAILY 05/22/21 05/22/21 Unknown History sodium phosphates [Fleet Enema] 118 ml [place] DAILY PRN 05/22/21 05/22/21 Unknown History trazodone 2 tab PO BEDTIME 05/22/21 05/22/21 Unknown History Exam Exam Date and Time: June 03, 2021 0704 Height,Weight and Vital Signs: Height 6 ft 2 in Weight 100.6 kg Last Vital Signs Temp 97.8 F 06/03/21 06:49 Pulse 57 06/03/21 06:49 Resp 18 06/03/21 06:49 BP 181/94 H 06/03/21 06:49 Pulse Ox 100 06/03/21 06:49 Pertinent Lab Results Pertinent Lab Results: Laboratory Tests 05/22/21 05/22/21 05/22/21 12:22 12:22 12:22 WBC 6.1 RBC 4.30 L Hgb 14.4 Hct 42.3 MCV 98.4 H MCH 33.5 H MCHC 34.0 RDW 11.4 Plt Count 159 L MPV 9.8 Immature Gran % (Auto) 0.7 H Neut % (Auto) 59.8 Lymph % (Auto) 25.8 [place] % (Auto) 8.9 Eos % (Auto) 4.3 H Baso % (Auto) 0.5 Lymph # (Auto) 1.6 [place] # (Auto) 0.5 Eos # (Auto) 0.3 Baso # (Auto) 0.0 Abs Immat Gran (auto) 0.04 H Absolute Neuts (auto) 3.6 Absolute Nucleated RBC 0.000 Nucleated RBC % (auto) 0.0 Sodium 139 Potassium 4.1 Chloride 105 Carbon Dioxide 24 Anion Gap 14 BUN 13 Creatinine 0.86 Estim Creat Clear Calc 98.2 Estimated GFR > 60 Random Glucose 85 Fasting Glucose Calcium 9.4 Magnesium Total Bilirubin 0.9 Direct Bilirubin 0.4 AST 26 ALT 45 H Alkaline Phosphatase 81 D Total Protein 6.8 Albumin 4.4 Triglycerides Cholesterol LDL Cholesterol, Calc HDL Cholesterol Vitamin B12 Folate TSH Free T4 Lamotrigine Ethyl Alcohol < 10 COVID-19 (RACHEL) COVID-19 [place] Com 05/22/21 05/23/21 05/23/21 14:25 07:25 07:25 WBC RBC Hgb Hct MCV MCH MCHC RDW Plt Count MPV Immature Gran % (Auto) Neut % (Auto) Lymph % (Auto) [place] % (Auto) Eos % (Auto) Baso % (Auto) Lymph # (Auto) [place] # (Auto) Eos # (Auto) Baso # (Auto) Abs Immat Gran (auto) Absolute Neuts (auto) Absolute Nucleated RBC Nucleated RBC % (auto) Sodium 140 Potassium 4.0 Chloride 106 Carbon Dioxide 26 Anion Gap 12 BUN 16 Creatinine 0.89 Estim Creat Clear Calc 94.9 Estimated GFR > 60 Random Glucose Fasting Glucose 91 Calcium 9.4 Magnesium 2.2 Total Bilirubin 0.6 Direct Bilirubin AST 26 ALT 43 H Alkaline Phosphatase 88 Total Protein 6.5 Albumin 4.2 Triglycerides 74 Cholesterol 167 LDL Cholesterol, Calc 109 HDL Cholesterol 44 Vitamin B12 757 Folate 19.9 TSH 0.63 Free T4 0.90 Lamotrigine Ethyl Alcohol COVID-19 (RACHEL) Negative COVID-19 Clin Com See Note 05/23/21 07:25 WBC RBC Hgb Hct MCV MCH MCHC RDW Plt Count MPV Immature Gran % (Auto) Neut % (Auto) Lymph % (Auto) [place] % (Auto) Eos % (Auto) Baso % (Auto) Lymph # (Auto) [place] # (Auto) Eos # (Auto) Baso # (Auto) Abs Immat Gran (auto) Absolute Neuts (auto) Absolute Nucleated RBC Nucleated RBC % (auto) Sodium Potassium Chloride Carbon Dioxide Anion Gap BUN Creatinine Estim Creat Clear Calc Estimated GFR Random Glucose Fasting Glucose Calcium Magnesium Total Bilirubin Direct Bilirubin AST ALT Alkaline Phosphatase Total Protein Albumin Triglycerides Cholesterol LDL Cholesterol, Calc HDL Cholesterol Vitamin B12 Folate TSH Free T4 Lamotrigine 7.2 Ethyl Alcohol COVID-19 (RACHEL) COVID-19 Clin Com Airway Mallampati Class: II TM Dist: >3cm Neck ROM: Full Assessment and Plan Assessment Anesthesia Assessment: Anesthesia Plan Discussed and Chart Reviewed Final Anesthetic Review NPO: Yes ASA Class: III Final Preanesthetic Review: No Changes in Pt Med Stat, Meds/Allgs Chart Reviewed, Consent Obtained/Reviewed and Anes Risks/Benef Reviewed Patient Risk: Low Procedure Risk: Low Assessment/Block/Sedation in SS: Assess/Block/Sedation-SS Anesthetic Plan Anesthetic Plan: GA Disposition: Standard PACU
[2021-06-03] MEDS: Albuterol Sulfate 90 MCG 8 GM INHALER 2 PUFF INHALE (08:45)
--- NOTE | 2021-06-03 09:37 | P.PNPSI_ITS ---
Subjective Subjective Date of Service: 06/03/21 Reason For Visit: Depression SI Subjective Notes: Conditional Voluntary Guardianship: No Interim History: The patient has been dysphoric in the unit and he had ECT today AM. We are exploring other options for housing since the nursing home is not stimulating for him. We will have a meeting tomorrow at AM. Review of Systems Acute medical concerns: No Medical Review of Systems: unchanged Mental Status Exam Mental Status Exam Patient Appearance: Well Grooomed Patient Orientation: Person, Place and Time Level of Consciousness: Awake Patient Behavior: Appropriate Mood Description: Withdrawn Affect Description: Constricted Patient Cognition Impaired: No Ability to Follow Directions: Good Speech Pattern: Clear Memory Description: Intact Hallucinations: None Delusions: Not Present Thought Process: Goal Oriented Thought Content: positive for Circumstantial Depressive Symptoms: Increased Anxiety, Difficulty Sleeping and Hopelessness Judgement: Fair Diagnostics Vital Signs (24Hr): Vital Signs - 24 hr 06/02/21 18:00 06/03/21 05:32 06/03/21 05:35 Temperature 97.8 F 97.9 F Pulse Rate 76 63 63 Respiratory Rate 16 20 Blood Pressure 141/75 H 142/70 H 142/70 H Pulse Oximetry 95 96 06/03/21 05:49 06/03/21 06:49 06/03/21 08:00 Temperature 97.9 F 97.8 F 97.7 F Pulse Rate 63 57 63 Respiratory Rate 20 18 16 Blood Pressure 142/70 H 181/94 H 175/99 H Pulse Oximetry 96 100 95 06/03/21 08:05 06/03/21 08:10 06/03/21 08:15 Temperature Pulse Rate 68 62 61 Respiratory Rate 20 20 18 Blood Pressure 168/95 H 163/89 H 162/90 H Pulse Oximetry 99 100 99 06/03/21 08:30 06/03/21 08:45 06/03/21 09:00 Temperature Pulse Rate 62 62 62 Respiratory Rate 18 18 18 Blood Pressure 163/87 H 150/80 H 160/78 H Pulse Oximetry 100 100 99 Body Mass Index 28.5 Labs Results: 05/22/21 12:22 05/23/21 07:25 Imaging Radiology Impressions: ITS Impressions Head CT 05/24/21 15:15 IMPRESSION: 1. Status post prior right craniotomy with scattered right periventricular white matter gliosis and compensatory right ventricular dilatation.. 2. Generalized atrophy with ventricular dilatation and prominent cortical sulci and fissures and cisterns. No edema or mass effect. 3. No intracranial hemorrhage or hematoma or extra-axial fluid collection. Medications Medications Current Medications Generic Name Dose Route Start Last Admin Trade Name Freq PRN Reason Stop Dose Admin Acetaminophen 650 mg 05/22/21 17:28 06/03/21 04:31 Acetaminophen 325 Mg Tablet PO 650 mg Q6H PRN Administration Headache/Pain Mild Scale (1-3) Al Hydroxide/Mg Hydroxide 30 ml 05/22/21 17:28 Magnesium Hydrox/Alum Hydrox 30 Ml Oral.Susp PO Q6H PRN Heartburn/Nausea Albuterol Sulfate 2 puff 05/22/21 22:00 06/03/21 08:45 Albuterol Sulfate 90 Mcg 8 Gm Inhaler INHALE 2 puff Q6H PRN Administration Shortness of Breath/Wheezing Amlodipine Besylate 5 mg 05/25/21 09:00 06/03/21 05:35 Amlodipine Besylate 5 Mg Tablet PO 5 mg DAILY TAZ Administration Protocol Aripiprazole 10 mg 05/23/21 09:00 06/02/21 08:10 Aripiprazole 10 Mg Tablet PO 10 mg DAILY TAZ Administration Docusate Sodium 100 mg 05/23/21 09:00 06/02/21 20:16 Docusate Sodium 100 Mg Capsule PO 100 mg BID TAZ Administration Escitalopram Oxalate 10 mg 05/23/21 09:00 06/02/21 08:10 Escitalopram Oxalate 10 Mg Tablet PO 10 mg DAILY TAZ Administration Finasteride 5 mg 05/23/21 09:00 06/02/21 08:11 Finasteride 5 Mg Tablet PO 5 mg DAILY TAZ Administration Gabapentin 100 mg 05/26/21 08:30 06/02/21 13:25 Gabapentin 100 Mg Capsule PO 100 mg BID@0830,1330 TAZ Administration Lactated Ringer's 500 mls @ 20 mls/hr 06/03/21 07:15 Lr IVCONT .Q24H TAZ Ibuprofen 400 mg 05/27/21 09:30 05/31/21 04:16 Ibuprofen 400 Mg Tablet PO 400 mg Q6H PRN Administration Pain, Moderate (Pain Scale 4-6 Lamotrigine 100 mg 05/25/21 09:00 06/02/21 08:10 Lamotrigine 100 Mg Tablet PO 100 mg DAILY TAZ Administration Latanoprost 1 drop 05/27/21 21:00 06/02/21 20:20 Latanoprost 0.005 % Ophth No 2.5 Ml Drops EYE-BOTH 1 drop BEDTIME TAZ Administration Lidocaine 1 patch 05/30/21 09:00 06/02/21 08:10 Lidocaine 4 % Patch Adh..Patch TRANSDERMA 1 patch DAILY TAZ Administration Protocol Lisinopril 20 mg 05/25/21 09:00 06/02/21 08:12 Lisinopril 20 Mg Tablet PO 20 mg DAILY TAZ Administration Protocol Lorazepam 0.5 mg 05/26/21 10:20 06/02/21 14:46 Lorazepam 0.5 Mg Tablet PO 0.5 mg DAILY PRN Administration Anxiety Lorazepam 0.5 mg 05/29/21 09:00 06/02/21 08:10 Lorazepam 0.5 Mg Tablet PO 0.5 mg DAILY TAZ Administration Lorazepam 1 mg 05/29/21 21:00 06/02/21 19:27 Lorazepam 1 Mg Tablet PO Not Given BEDTIME TAZ Magnesium Hydroxide 30 ml 05/22/21 17:28 Milk Of Magnesia 30 Ml Oral.Susp PO DAILY PRN Constipation Melatonin 6 mg 05/28/21 21:00 06/02/21 20:18 Melatonin 3 Mg Tablet PO 6 mg BEDTIME TAZ Administration Mirtazapine 22.5 mg 05/31/21 21:00 06/02/21 20:17 Mirtazapine 7.5 Mg Tablet PO 22.5 mg BEDTIME TAZ Administration Multivitamins/Minerals 1 tab 05/23/21 09:00 06/02/21 08:10 Multivitamin With Minerals Tablet PO 1 tab DAILY TAZ Administration Ondansetron HCl 4 mg 05/28/21 13:46 Ondansetron Odt 4 Mg Tab.Rapdis TRANSLINGU Q8H PRN Nausea and Vomiting Polyethylene Glycol 17 gm 05/25/21 17:00 06/02/21 16:24 Polyethylene Glycol 3350 17 Gm Powd.Pack PO 17 gm DAILY@1700 TAZ Administration Sodium Biphosphate/Sodium Phosphate 118 ml 05/22/21 21:38 Sodium Phosphate,[place]-Dibasic 133 Ml Enema [place] DAILY PRN Constipation Trazodone HCl 300 mg 05/22/21 22:00 06/02/21 20:17 Trazodone Hcl 100 Mg Tablet PO 300 mg BEDTIME TAZ Administration Allergies Allergies Allergy/AdvReac Type Severity Reaction Status Date / Time fentanyl [FENTANYL] Allergy Intermediate unknown Verified 05/22/21 11:43 Assessment & Plan Assessment & Plan (1) HTN (hypertension): Status: Acute Code(s): I10 - Essential (primary) hypertension (2) Major depressive disorder, recurrent severe without psychotic features: Status: Acute Code(s): F33.2 - Major depressive disorder, recurrent severe without psychotic features (3) Cognitive and neurobehavioral dysfunction following brain injury: Status: Acute Code(s): G31.89 - Other specified degenerative diseases of nervous system; F09 - Unsp ecified mental disorder due to known physiological condition; S06.9X9S - Unspecified intracranial injury with loss of consciousness of unspecified duration, sequela Assessment and Plan: responding already to ECT less si- brighter affect thinking of future more Greater than 50% of the session was spent on counseling and/or coordination of care Reason for contiued inpatient stay Substantial Risk for: inability to function, rapid decompensation and med/psych decompensation
[2021-06-03] MEDS: Docusate Sodium 100 MG CAPSULE PO ×2 (10:29→20:35)
[2021-06-03] MEDS: LORazepam 0.5 MG TABLET PO ×2 (10:29→13:56)
[2021-06-03] MEDS: lamoTRIgine 100 MG TABLET PO (10:29)
[2021-06-03] MEDS: ARIPiprazole 10 MG TABLET PO (10:29)
[2021-06-03] MEDS: Gabapentin 100 MG CAPSULE PO ×2 (10:30→13:35)
[2021-06-03] MEDS: Escitalopram Oxalate 10 MG TABLET PO (10:30)
[2021-06-03] MEDS: Finasteride 5 MG TABLET PO (10:30)
[2021-06-03] MEDS: Lidocaine 4 % Patch ADH..PATCH 1 PATCH TRANSDERMA (10:30)
[2021-06-03] MEDS: polyethylene glycoL 3350 17 GM POWD.PACK PO (16:59)
[2021-06-03] MEDS: traZODone HCL 100 MG TABLET 300 MG PO (20:35)
[2021-06-03] MEDS: Melatonin 3 MG TABLET 6 MG PO (20:35)
[2021-06-03] MEDS: Latanoprost 0.005 % Ophth Sol 2.5 ML DROPS 1 DROP EYE-BOTH (20:35)
[2021-06-03] MEDS: Mirtazapine 7.5 MG TABLET 22.5 MG PO (20:35)
[2021-06-03] MEDS: LORazepam 1 MG TABLET PO (20:35)
[2021-06-04] MEDS: Gabapentin 100 MG CAPSULE PO (09:31)
[2021-06-04] MEDS: LORazepam 0.5 MG TABLET PO ×2 (09:31→15:53)
[2021-06-04] MEDS: Docusate Sodium 100 MG CAPSULE PO ×2 (09:31→20:55)
[2021-06-04] MEDS: Escitalopram Oxalate 10 MG TABLET PO (09:31)
[2021-06-04] MEDS: amLODIPine Besylate 5 MG TABLET PO (09:31)
[2021-06-04] MEDS: lisinopriL 40 MG TABLET PO (09:31)
[2021-06-04] MEDS: Finasteride 5 MG TABLET PO (09:31)
[2021-06-04] MEDS: lamoTRIgine 100 MG TABLET PO (09:31)
[2021-06-04] MEDS: ARIPiprazole 10 MG TABLET PO (09:31)
[2021-06-04] MEDS: polyethylene glycoL 3350 17 GM POWD.PACK PO (15:53)
[2021-06-04 17:45] VITALS: BP 146/78; PULSE 89; RESP 18; TEMP 37.1; O2SAT 93
[2021-06-04] MEDS: traZODone HCL 100 MG TABLET 300 MG PO (20:56)
[2021-06-04] MEDS: Mirtazapine 7.5 MG TABLET 22.5 MG PO (20:56)
[2021-06-04] MEDS: Melatonin 3 MG TABLET 6 MG PO (20:56)
[2021-06-04] MEDS: LORazepam 1 MG TABLET PO (20:57)
[2021-06-04] MEDS: Latanoprost 0.005 % Ophth Sol 2.5 ML DROPS 1 DROP EYE-BOTH (20:57)
--- NOTE | 2021-06-04 21:46 | P.PNPSI_ITS ---
Subjective Subjective Date of Service: 06/04/21 Reason For Visit: Depression SI Subjective Notes: Conditional Voluntary Guardianship: No Medical Problems Affecting Mental Status: Yes Interim History: Patient seen with case supervisor from [facility] patient has decided to return to long term and seek a longer-term placement Medication Compliance: Yes Attending Groups: Intermittent Mental Status Exam Mental Status Exam Patient Appearance: Well Grooomed Patient Orientation: Person, Place and Time Level of Consciousness: Awake Patient Behavior: Appropriate Mood Description: Withdrawn Affect Description: Constricted Patient Cognition Impaired: No Ability to Follow Directions: Good Speech Pattern: Clear Memory Description: Intact Hallucinations: None Delusions: Not Present Thought Process: Goal Oriented Thought Content: positive for Circumstantial Depressive Symptoms: Increased Anxiety, Difficulty Sleeping and Hopelessness Judgement: Fair Diagnostics Vital Signs (24Hr): Vital Signs - 24 hr 06/04/21 17:45 Temperature 98.8 F Pulse Rate 89 Respiratory Rate 18 Blood Pressure 146/78 H Pulse Oximetry 93 Body Mass Index 28.5 Labs Results: 05/22/21 12:22 05/23/21 07:25 Imaging Radiology Impressions: ITS Impressions Head CT 05/24/21 15:15 IMPRESSION: 1. Status post prior right craniotomy with scattered right periventricular white matter gliosis and compensatory right ventricular dilatation.. 2. Generalized atrophy with ventricular dilatation and prominent cortical sulci and fissures and cisterns. No edema or mass effect. 3. No intracranial hemorrhage or hematoma or extra-axial fluid collection. Medications Medications Current Medications Generic Name Dose Route Start Last Admin Trade Name Freq PRN Reason Stop Dose Admin Acetaminophen 650 mg 05/22/21 17:28 06/03/21 23:16 Acetaminophen 325 Mg Tablet PO 650 mg Q6H PRN Administration Headache/Pain Mild Scale (1-3) Al Hydroxide/Mg Hydroxide 30 ml 05/22/21 17:28 Magnesium Hydrox/Alum Hydrox 30 Ml Oral.Susp PO Q6H PRN Heartburn/Nausea Albuterol Sulfate 2 puff 05/22/21 22:00 06/03/21 08:45 Albuterol Sulfate 90 Mcg 8 Gm Inhaler INHALE 2 puff Q6H PRN Administration Shortness of Breath/Wheezing Amlodipine Besylate 5 mg 05/25/21 09:00 06/04/21 09:31 Amlodipine Besylate 5 Mg Tablet PO 5 mg DAILY TAZ Administration Protocol Aripiprazole 10 mg 05/23/21 09:00 06/04/21 09:31 Aripiprazole 10 Mg Tablet PO 10 mg DAILY TAZ Administration Docusate Sodium 100 mg 05/23/21 09:00 06/04/21 20:55 Docusate Sodium 100 Mg Capsule PO 100 mg BID TAZ Administration Escitalopram Oxalate 10 mg 05/23/21 09:00 06/04/21 09:31 Escitalopram Oxalate 10 Mg Tablet PO 10 mg DAILY TAZ Administration Finasteride 5 mg 05/23/21 09:00 06/04/21 09:31 Finasteride 5 Mg Tablet PO 5 mg DAILY TAZ Administration Gabapentin 100 mg 05/26/21 08:30 06/04/21 14:57 Gabapentin 100 Mg Capsule PO Not Given BID@0830,1330 TAZ Lactated Ringer's 500 mls @ 20 mls/hr 06/03/21 07:15 06/04/21 05:58 Lr IVCONT Not Given .Q24H TAZ Ibuprofen 400 mg 05/27/21 09:30 05/31/21 04:16 Ibuprofen 400 Mg Tablet PO 400 mg Q6H PRN Administration Pain, Moderate (Pain Scale 4-6 Lamotrigine 100 mg 05/25/21 09:00 06/04/21 09:31 Lamotrigine 100 Mg Tablet PO 100 mg DAILY TAZ Administration Latanoprost 1 drop 05/27/21 21:00 06/04/21 20:57 Latanoprost 0.005 % Ophth No 2.5 Ml Drops EYE-BOTH 1 drop BEDTIME TAZ Administration Lidocaine 1 patch 05/30/21 09:00 06/04/21 09:35 Lidocaine 4 % Patch Adh..Patch TRANSDERMA Not Given DAILY [facility] Protocol Lisinopril 40 mg 06/04/21 09:00 06/04/21 09:31 Lisinopril 40 Mg Tablet PO 40 mg DAILY TAZ Administration Protocol Lorazepam 0.5 mg 05/26/21 10:20 06/04/21 15:53 Lorazepam 0.5 Mg Tablet PO 0.5 mg DAILY PRN Administration Anxiety Lorazepam 0.5 mg 05/29/21 09:00 06/04/21 09:31 Lorazepam 0.5 Mg Tablet PO 0.5 mg DAILY TAZ Administration Lorazepam 1 mg 05/29/21 21:00 06/04/21 20:57 Lorazepam 1 Mg Tablet PO 1 mg BEDTIME TAZ Administration Magnesium Hydroxide 30 ml 05/22/21 17:28 Milk Of Magnesia 30 Ml Oral.Susp PO DAILY PRN Constipation Melatonin 6 mg 05/28/21 21:00 06/04/21 20:56 Melatonin 3 Mg Tablet PO 6 mg BEDTIME TAZ Administration Mirtazapine 22.5 mg 05/31/21 21:00 06/04/21 20:56 Mirtazapine 7.5 Mg Tablet PO 22.5 mg BEDTIME TAZ Administration Multivitamins/Minerals 1 tab 05/23/21 09:00 06/04/21 09:31 Multivitamin With Minerals Tablet PO 1 tab DAILY TAZ Administration Ondansetron HCl 4 mg 05/28/21 13:46 Ondansetron Odt 4 Mg Tab.Rapdis TRANSLINGU Q8H PRN Nausea and Vomiting Polyethylene Glycol 17 gm 05/25/21 17:00 06/04/21 15:53 Polyethylene Glycol 3350 17 Gm Powd.Pack PO 17 gm DAILY@1700 TAZ Administration Sodium Biphosphate/Sodium Phosphate 118 ml 05/22/21 21:38 Sodium Phosphate,[place]-Dibasic 133 Ml Enema [place] DAILY PRN Constipation Trazodone HCl 300 mg 05/22/21 22:00 06/04/21 20:56 Trazodone Hcl 100 Mg Tablet PO 300 mg BEDTIME TAZ Administration Allergies Allergies Allergy/AdvReac Type Severity Reaction Status Date / Time fentanyl [FENTANYL] Allergy Intermediate unknown Verified 05/22/21 11:43 Assessment & Plan Assessment & Plan (1) HTN (hypertension): Status: Acute Code(s): I10 - Essential (primary) hypertension (2) Major depressive disorder, recurrent severe without psychotic features: Status: Acute Code(s): F33.2 - Major depressive disorder, recurrent severe without psychotic features (3) Cognitive and neurobehavioral dysfunction following brain injury: Status: Acute Code(s): G31.89 - Other specified degenerative diseases of nervous system; F09 - Unspecified mental disorder due to known physiological condition; S06.9X9S - Unspecified intracranial injury with loss of consciousness of unspecified duration, sequela Assessment and Plan: responding already to ECT less si- brighter affect thinking of future more Looking to go to a family structured setting supported by DDS patient aware this may take at least 6 months Greater than 50% of the session was spent on counseling and/or coordination of care Reason for contiued inpatient stay Substantial Risk for: harm to self
--- NOTE | 2021-06-04 21:48 | PC.NURSE ---
PT is complaining of right middle toe pain due to neuropathy. This nurse assessed the toe to find areas of necrotic fresh on the bottom of the 3rd and 4th toes on the right foot. This nurse to make recommendation for wound consult during morning report.
[2021-06-05] VITALS (9 sets, daily range): BP systolic 127–176; BP diastolic 63–91; PULSE 62–80; RESP 16–23; TEMP 36.3–36.9; O2SAT 94–98
--- NOTE | 2021-06-05 07:06 | MHC.SHP ---
Pre-Procedural Eval Section A Date of Service: 06/05/21 The patient is an INPATIENT: Yes Changes since office visit: Yes Changes in Medication and Yes Patient answered all questions; No Cold of Flu in the past 2 weeks and No New Medical Problems The History & Physical has been completed within 30 days and I have reviewed it.: Yes Section B Chief Complaint: Depression SI Allergies: Allergies Allergy/AdvReac Type Severity Reaction Status Date / Time fentanyl [FENTANYL] Allergy Intermediate unknown Verified 05/22/21 11:43 Plan I have reviewed the history and physical and performed a pertinent physical examination on my patient. No changes have occurred unless specified.
--- NOTE | 2021-06-05 07:37 | HO.ANESPROP2 ---
[facility] Active Problems Active Problems: All Active Problems (Updated 05/24/21 @ 23:38 by Addy Haskins MD) Major depressive disorder, recurrent severe without psychotic features (Acute) Cognitive and neurobehavioral dysfunction following brain injury (Acute) HTN (hypertension) (Acute) Past Medical History Medical History Alcohol use disorder, severe, in sustained remission Cognitive and neurobehavioral dysfunction following brain injury Hernia HTN (hypertension) Major depressive disorder, recurrent Major depressive disorder, recurrent severe without psychotic features Surgical History Surgical History H/O brain surgery History of hip replacement S/P cholecystectomy Social History Social History Household Members: Other Household Members Other:: 3 housemates in snf Housing: Other Housing Other:: Care Home Patient Tobacco Use Status: Never used Tobacco Advance Directives Date on File: 05/27/19 service: No Sexual orientation: Straight/Heterosexual Meds Allergies Allergy/AdvReac Type Severity Reaction Status Date / Time fentanyl [FENTANYL] Allergy Intermediate unknown Verified 05/22/21 11:43 Active Medications: Current Medications Generic Name Dose Route Start Last Admin Trade Name Freq PRN Reason Stop Dose Admin Acetaminophen 650 mg 05/22/21 17:28 06/03/21 23:16 Acetaminophen 325 Mg Tablet PO 650 mg Q6H PRN Administration Headache/Pain Mild Scale (1-3) Al Hydroxide/Mg Hydroxide 30 ml 05/22/21 17:28 Magnesium Hydrox/Alum Hydrox 30 Ml Oral.Susp PO Q6H PRN Heartburn/Nausea Albuterol Sulfate 2 puff 05/22/21 22:00 06/03/21 08:45 Albuterol Sulfate 90 Mcg 8 Gm Inhaler INHALE 2 puff Q6H PRN Administration Shortness of Breath/Wheezing Amlodipine Besylate 5 mg 05/25/21 09:00 06/04/21 09:31 Amlodipine Besylate 5 Mg Tablet PO 5 mg DAILY TAZ Administration Protocol Aripiprazole 10 mg 05/23/21 09:00 06/04/21 09:31 Aripiprazole 10 Mg Tablet PO 10 mg DAILY TAZ Administration Docusate Sodium 100 mg 05/23/21 09:00 06/04/21 20:55 Docusate Sodium 100 Mg Capsule PO 100 mg BID TAZ Administration Escitalopram Oxalate 10 mg 05/23/21 09:00 06/04/21 09:31 Escitalopram Oxalate 10 Mg Tablet PO 10 mg DAILY TAZ Administration Finasteride 5 mg 05/23/21 09:00 06/04/21 09:31 Finasteride 5 Mg Tablet PO 5 mg DAILY TAZ Administration Gabapentin 100 mg 05/26/21 08:30 06/04/21 14:57 Gabapentin 100 Mg Capsule PO Not Given BID@0830,1330 TAZ Lactated Ringer's 500 mls @ 20 mls/hr 06/03/21 07:15 06/04/21 05:58 Lr IVCONT Not Given .Q24H TAZ Lactated Ringer's 1,000 mls @ 50 mls/hr 06/05/21 07:45 Lr IVCONT .Q20H TAZ Ibuprofen 400 mg 05/27/21 09:30 05/31/21 04:16 Ibuprofen 400 Mg Tablet PO 400 mg Q6H PRN Administration Pain, Moderate (Pain Scale 4-6 Lamotrigine 100 mg 05/25/21 09:00 06/04/21 09:31 Lamotrigine 100 Mg Tablet PO 100 mg DAILY TAZ Administration Latanoprost 1 drop 05/27/21 21:00 06/04/21 20:57 Latanoprost 0.005 % Ophth No 2.5 Ml Drops EYE-BOTH 1 drop BEDTIME TAZ Administration Lidocaine 1 patch 05/30/21 09:00 06/04/21 09:35 Lidocaine 4 % Patch Adh..Patch TRANSDERMA Not Given DAILY [facility] Protocol Lisinopril 40 mg 06/04/21 09:00 06/04/21 09:31 Lisinopril 40 Mg Tablet PO 40 mg DAILY TAZ Administration Protocol Magnesium Hydroxide 30 ml 05/22/21 17:28 Milk Of Magnesia 30 Ml Oral.Susp PO DAILY PRN Constipation Melatonin 6 mg 05/28/21 21:00 06/04/21 20:56 Melatonin 3 Mg Tablet PO 6 mg BEDTIME TAZ Administration Mirtazapine 22.5 mg 05/31/21 21:00 06/04/21 20:56 Mirtazapine 7.5 Mg Tablet PO 22.5 mg BEDTIME TAZ Administration Multivitamins/Minerals 1 tab 05/23/21 09:00 06/04/21 09:31 Multivitamin With Minerals Tablet PO 1 tab DAILY TAZ Administration Ondansetron HCl 4 mg 05/28/21 13:46 Ondansetron Odt 4 Mg Tab.Rapdis TRANSLINGU Q8H PRN Nausea and Vomiting Polyethylene Glycol 17 gm 05/25/21 17:00 06/04/21 15:53 Polyethylene Glycol 3350 17 Gm Powd.Pack PO 17 gm DAILY@1700 TAZ Administration Sodium Biphosphate/Sodium Phosphate 118 ml 05/22/21 21:38 Sodium Phosphate,[place]-Dibasic 133 Ml Enema [place] DAILY PRN Constipation Trazodone HCl 300 mg 05/22/21 22:00 06/04/21 20:56 Trazodone Hcl 100 Mg Tablet PO 300 mg BEDTIME TAZ Administration Home Medications Medication Instructions Recorded Confirmed Last Taken Type Tylenol 650 mg PO Q6-8H PRN 05/22/21 05/22/21 Unknown History Tylenol Arthritis Pain 650 mg PO DAILY 05/22/21 05/22/21 Unknown History albuterol [Ventolin] See Rx Instructions .ROUTE .COMPLEX 05/22/21 05/22/21 Unknown History amantadine HCl 1 tab PO BID 05/22/21 05/22/21 Unknown History aripiprazole 1 tab PO DAILY 05/22/21 05/22/21 Unknown History clotrimazole See Rx Instructions .ROUTE 05/22/21 05/22/21 Unknown History .COMPLEX PRN dextromethorphan-guaifenesin 10 ml PO Q6-8H PRN 05/22/21 05/22/21 Unknown History [Robitussin DM Max] docusate sodium 1 cap PO BID 05/22/21 05/22/21 Unknown History docusate sodium See Rx Instructions .ROUTE 05/22/21 05/22/21 Unknown History .COMPLEX PRN escitalopram oxalate 1 tab PO DAILY 05/22/21 05/22/21 Unknown History finasteride 1 tab PO DAILY 05/22/21 05/22/21 Unknown History gabapentin enacarbil [Horizant] 1 tab PO BID 05/22/21 05/22/21 Unknown History glycerin [Artificial Tears 1 drp OPHTHALMIC (EYE) Q1-2H PRN 05/22/21 05/22/21 Unknown History (glycerin)] lamotrigine 1 tab PO DAILY 05/22/21 05/22/21 Unknown History lamotrigine 1 tab PO DAILY 05/22/21 05/22/21 Unknown History latanoprost 1 drp OPHTHALMIC (EYE) DAILY 05/22/21 05/22/21 Unknown History lisinopril 1 tab PO DAILY 05/22/21 05/22/21 Unknown History lorazepam 1 tab PO DAILY 05/22/21 05/22/21 Unknown History lorazepam 1 tab PO DAILY 05/22/21 05/22/21 Unknown History lorazepam 1 tab PO DAILY PRN 05/22/21 05/22/21 Unknown History magnesium hydroxide [Milk of 2,400 mg PO PRN 05/22/21 Unknown History Magnesia] melatonin 5 mg PO BEDTIME 05/22/21 05/22/21 Unknown History pduiavqamttz-lvkxfuzo-hxwepv 1 tab PO DAILY 05/22/21 05/22/21 Unknown History [Centrum Silver] polyethylene glycol 3350 17 g PO DAILY 05/22/21 05/22/21 Unknown History polyethylene glycol 3350 17 g PO DAILY PRN 05/22/21 05/22/21 Unknown History psyllium husk [Metamucil] 0.4 g PO DAILY 05/22/21 05/22/21 Unknown History sodium phosphates [Fleet Enema] 118 ml [place] DAILY PRN 05/22/21 05/22/21 Unknown History trazodone 2 tab PO BEDTIME 05/22/21 05/22/21 Unknown History Exam Exam Date and Time: June 05, 2021 0737 Height,Weight and Vital Signs: Height 6 ft 2 in Weight 100.6 kg Last Vital Signs Temp 97.4 F 06/05/21 06:59 Pulse 65 06/05/21 06:59 Resp 20 06/05/21 06:59 BP 157/80 H 06/05/21 06:59 Pulse Ox 98 06/05/21 06:59 Pertinent Lab Results Pertinent Lab Results: Laboratory Tests 05/22/21 05/22/21 05/22/21 12:22 12:22 12:22 WBC 6.1 RBC 4.30 L Hgb 14.4 Hct 42.3 MCV 98.4 H MCH 33.5 H MCHC 34.0 RDW 11.4 Plt Count 159 L MPV 9.8 Immature Gran % (Auto) 0.7 H Neut % (Auto) 59.8 Lymph % (Auto) 25.8 [place] % (Auto) 8.9 Eos % (Auto) 4.3 H Baso % (Auto) 0.5 Lymph # (Auto) 1.6 [place] # (Auto) 0.5 Eos # (Auto) 0.3 Baso # (Auto) 0.0 Abs Immat Gran (auto) 0.04 H Absolute Neuts (auto) 3.6 Absolute Nucleated RBC 0.000 Nucleated RBC % (auto) 0.0 Sodium 139 Potassium 4.1 Chloride 105 Carbon Dioxide 24 Anion Gap 14 BUN 13 Creatinine 0.86 Estim Creat Clear Calc 98.2 Estimated GFR > 60 Random Glucose 85 Fasting Glucose Calcium 9.4 Magnesium Total Bilirubin 0.9 Direct Bilirubin 0.4 AST 26 ALT 45 H Alkaline Phosphatase 81 D Total Protein 6.8 Albumin 4.4 Triglycerides Cholesterol LDL Cholesterol, Calc HDL Cholesterol Vitamin B12 Folate TSH Free T4 Lamotrigine Ethyl Alcohol < 10 COVID-19 (RACHEL) COVID-19 Ontela 05/22/21 05/23/21 05/23/21 14:25 07:25 07:25 WBC RBC Hgb Hct MCV MCH MCHC RDW Plt Count MPV Immature Gran % (Auto) Neut % (Auto) Lymph % (Auto) [place] % (Auto) Eos % (Auto) Baso % (Auto) Lymph # (Auto) [place] # (Auto) Eos # (Auto) Baso # (Auto) Abs Immat Gran (auto) Absolute Neuts (auto) Absolute Nucleated RBC Nucleated RBC % (auto) Sodium 140 Potassium 4.0 Chloride 106 Carbon Dioxide 26 Anion Gap 12 BUN 16 Creatinine 0.89 Estim Creat Clear Calc 94.9 Estimated GFR > 60 Random Glucose Fasting Glucose 91 Calcium 9.4 Magnesium 2.2 Total Bilirubin 0.6 Direct Bilirubin AST 26 ALT 43 H Alkaline Phosphatase 88 Total Protein 6.5 Albumin 4.2 Triglycerides 74 Cholesterol 167 LDL Cholesterol, Calc 109 HDL Cholesterol 44 Vitamin B12 757 Folate 19.9 TSH 0.63 Free T4 0.90 Lamotrigine Ethyl Alcohol COVID-19 (RACHEL) Negative COVID-19 Naverus Com See Note 05/23/21 07:25 WBC RBC Hgb Hct MCV MCH MCHC RDW Plt Count MPV Immature Gran % (Auto) Neut % (Auto) Lymph % (Auto) [place] % (Auto) Eos % (Auto) Baso % (Auto) Lymph # (Auto) [place] # (Auto) Eos # (Auto) Baso # (Auto) Abs Immat Gran (auto) Absolute Neuts (auto) Absolute Nucleated RBC Nucleated RBC % (auto) Sodium Potassium Chloride Carbon Dioxide Anion Gap BUN Creatinine Estim Creat Clear Calc Estimated GFR Random Glucose Fasting Glucose Calcium Magnesium Total Bilirubin Direct Bilirubin AST ALT Alkaline Phosphatase Total Protein Albumin Triglycerides Cholesterol LDL Cholesterol, Calc HDL Cholesterol Vitamin B12 Folate TSH Free T4 Lamotrigine 7.2 Ethyl Alcohol COVID-19 (RACHEL) COVID-19 Clin Com Airway Mallampati Class: II (Caps) TM Dist: >3cm Neck ROM: Full Heart: rrr Lungs: cta Assessment and Plan Assessment Anesthesia Assessment: Anesthesia Plan Discussed and Chart Reviewed Final Anesthetic Review NPO: Yes ASA Class: III Final Preanesthetic Review: No Changes in Pt Med Stat and Consent Obtained/Reviewed Patient Risk: Intermediate Procedure Risk: Intermediate Anesthetic Plan Anesthetic Plan: GA Disposition: Standard PACU
--- NOTE | 2021-06-05 07:55 | HO.ECTPROC ---
ECT Procedure Note Diagnosis/Treatment Date of Service: 06/05/21 Diagnosis: Major Depressive Disorder Previous ECT Date: 06/03/21 Current Treatment Number: 4 Treatment: Series Interval Clinical Notes: pt flat some improvement noted ECT Settings Device: THYMATRON DGx Electrode Placement: Right Unilateral Program/Pulse Width: 0.25 Energy Percent: 75 Seizure Duration By EEG (in seconds): 93 Medications Administration General Anesthetic: Etomidate (16) Muscle Relaxant: Succinylcholine (100) Ancillary Medications Analgesics: Torodol - Post ECT Anti-emetics: Zofran - Pre ECT Cardiovascular Medications: Labetolol (10 mg post) Airway Management Airway Management: Bag Mask Ventilation Treatment Recommendations Notes: lisinopril 20 mg pre tx Pt Tolerated Procedure w/o Issue: Yes
[2021-06-05] MEDS: Finasteride 5 MG TABLET PO (09:43)
[2021-06-05] MEDS: Docusate Sodium 100 MG CAPSULE PO ×2 (09:43→20:58)
[2021-06-05] MEDS: ARIPiprazole 10 MG TABLET PO (09:43)
[2021-06-05] MEDS: lisinopriL 40 MG TABLET PO (09:43)
[2021-06-05] MEDS: Gabapentin 100 MG CAPSULE PO ×2 (09:43→13:26)
[2021-06-05] MEDS: lamoTRIgine 100 MG TABLET PO (09:43)
[2021-06-05] MEDS: amLODIPine Besylate 5 MG TABLET PO (09:47)
[2021-06-05] MEDS: Escitalopram Oxalate 10 MG TABLET PO (09:47)
[2021-06-05] MEDS: LORazepam 0.5 MG TABLET PO ×2 (14:07→21:01)
[2021-06-05] MEDS: Milk of Magnesia 30 ML ORAL.SUSP PO (14:39)
[2021-06-05] MEDS: polyethylene glycoL 3350 17 GM POWD.PACK PO (16:38)
[2021-06-05] MEDS: traZODone HCL 100 MG TABLET 300 MG PO (20:57)
[2021-06-05] MEDS: Mirtazapine 7.5 MG TABLET 22.5 MG PO (20:57)
[2021-06-05] MEDS: Melatonin 3 MG TABLET 6 MG PO (20:58)
[2021-06-05] MEDS: Latanoprost 0.005 % Ophth Sol 2.5 ML DROPS 1 DROP EYE-BOTH (20:58)
--- NOTE | 2021-06-05 21:52 | HO.PSYCHPN ---
Subjective Subjective Date of Service: 06/05/21 Reason For Visit: Depression SI Subjective Notes: Conditional Voluntary Interim History: PATIENT FLAT DYSPHOR[employer] MONITOR RESPONSE TO ECT DENIES ACTIVE SELF-HARM SOME INCREASED RANGE OF AFFECT Mental Status Exam Mental Status Exam Patient Appearance: Well Grooomed Patient Orientation: Person, Place and Time Level of Consciousness: Awake Patient Behavior: Appropriate Mood Description: Withdrawn Affect Description: Constricted Patient Cognition Impaired: No Ability to Follow Directions: Good Speech Pattern: Clear Memory Description: Intact Hallucinations: None Delusions: Not Present Thought Process: Goal Oriented Thought Content: positive for Circumstantial Depressive Symptoms: Increased Anxiety, Difficulty Sleeping and Hopelessness Judgement: Fair Diagnostics Vital Signs (24Hr): Vital Signs - 24 hr 06/05/21 06:00 06/05/21 06:59 06/05/21 07:35 Temperature 98 F 97.4 F 97.8 F Pulse Rate 68 65 70 Respiratory Rate 16 20 20 Blood Pressure 166/86 H 157/80 H 145/89 H Pulse Oximetry 98 98 95 06/05/21 07:56 06/05/21 08:01 06/05/21 08:11 Temperature 98.5 F Pulse Rate 80 62 65 Respiratory Rate 18 18 23 H Blood Pressure 176/86 H 158/80 H 154/91 H Pulse Oximetry 98 95 97 06/05/21 08:26 06/05/21 09:15 06/05/21 18:27 Temperature 97.7 F 97.8 F 98.4 F Pulse Rate 62 70 77 Respiratory Rate 20 20 20 Blood Pressure 175/82 H 145/89 H 127/63 Pulse Oximetry 95 95 94 Body Mass Index 28.5 Labs Results: 05/22/21 12:22 05/23/21 07:25 Imaging Radiology Impressions: ITS Impressions Head CT 05/24/21 15:15 IMPRESSION: 1. Status post prior right craniotomy with scattered right periventricular white matter gliosis and compensatory right ventricular dilatation.. 2. Generalized atrophy with ventricular dilatation and prominent cortical sulci and fissures and cisterns. No edema or mass effect. 3. No intracranial hemorrhage or hematoma or extra-axial fluid collection. Medications Medications Current Medications Generic Name Dose Route Start Last Admin Trade Name Freq PRN Reason Stop Dose Admin Acetaminophen 650 mg 05/22/21 17:28 06/03/21 23:16 Acetaminophen 325 Mg Tablet PO 650 mg Q6H PRN Administration Headache/Pain Mild Scale (1-3) Al Hydroxide/Mg Hydroxide 30 ml 05/22/21 17:28 Magnesium Hydrox/Alum Hydrox 30 Ml Oral.Susp PO Q6H PRN Heartburn/Nausea Albuterol Sulfate 2 puff 05/22/21 22:00 06/03/21 08:45 Albuterol Sulfate 90 Mcg 8 Gm Inhaler INHALE 2 puff Q6H PRN Administration Shortness of Breath/Wheezing Amlodipine Besylate 5 mg 05/25/21 09:00 06/05/21 09:47 Amlodipine Besylate 5 Mg Tablet PO 5 mg DAILY TAZ Administration Protocol Aripiprazole 10 mg 05/23/21 09:00 06/05/21 09:43 Aripiprazole 10 Mg Tablet PO 10 mg DAILY TAZ Administration Docusate Sodium 100 mg 05/23/21 09:00 06/05/21 20:58 Docusate Sodium 100 Mg Capsule PO 100 mg BID TAZ Administration Escitalopram Oxalate 10 mg 05/23/21 09:00 06/05/21 09:47 Escitalopram Oxalate 10 Mg Tablet PO 10 mg DAILY TAZ Administration Finasteride 5 mg 05/23/21 09:00 06/05/21 09:43 Finasteride 5 Mg Tablet PO 5 mg DAILY TAZ Administration Gabapentin 100 mg 05/26/21 08:30 06/05/21 13:26 Gabapentin 100 Mg Capsule PO 100 mg BID@0830,1330 TAZ Administration Ibuprofen 400 mg 05/27/21 09:30 05/31/21 04:16 Ibuprofen 400 Mg Tablet PO 400 mg Q6H PRN Administration Pain, Moderate (Pain Scale 4-6 Lamotrigine 100 mg 05/25/21 09:00 06/05/21 09:43 Lamotrigine 100 Mg Tablet PO 100 mg DAILY TAZ Administration Latanoprost 1 drop 05/27/21 21:00 06/05/21 20:58 Latanoprost 0.005 % Ophth No 2.5 Ml Drops EYE-BOTH 1 drop BEDTIME TAZ Administration Lidocaine 1 patch 05/30/21 09:00 06/05/21 13:19 Lidocaine 4 % Patch Adh..Patch TRANSDERMA Not Given DAILY TAZ Protocol Lisinopril 40 mg 06/04/21 09:00 06/05/21 09:43 Lisinopril 40 Mg Tablet PO 40 mg DAILY TAZ Administration Protocol Lorazepam 0.5 mg 06/05/21 13:54 06/05/21 21:01 Lorazepam 0.5 Mg Tablet PO 0.5 mg Q6H PRN Administration Anxiety Magnesium Hydroxide 30 ml 05/22/21 17:28 06/05/21 14:39 Milk Of Magnesia 30 Ml Oral.Susp PO 30 ml DAILY PRN Administration Constipation Melatonin 6 mg 05/28/21 21:00 06/05/21 20:58 Melatonin 3 Mg Tablet PO 6 mg BEDTIME TAZ Administration Mirtazapine 22.5 mg 05/31/21 21:00 06/05/21 20:57 Mirtazapine 7.5 Mg Tablet PO 22.5 mg BEDTIME TAZ Administration Multivitamins/Minerals 1 tab 05/23/21 09:00 06/05/21 09:43 Multivitamin With Minerals Tablet PO 1 tab DAILY TAZ Administration Ondansetron HCl 4 mg 05/28/21 13:46 Ondansetron Odt 4 Mg Tab.Rapdis TRANSLINGU Q8H PRN Nausea and Vomiting Polyethylene Glycol 17 gm 05/25/21 17:00 06/05/21 16:38 Polyethylene Glycol 3350 17 Gm Powd.Pack PO 17 gm DAILY@1700 TAZ Administration Sodium Biphosphate/Sodium Phosphate 118 ml 05/22/21 21:38 Sodium Phosphate,[place]-Dibasic 133 Ml Enema [place] DAILY PRN Constipation Trazodone HCl 300 mg 05/22/21 22:00 06/05/21 20:57 Trazodone Hcl 100 Mg Tablet PO 300 mg BEDTIME TAZ Administration Allergies Allergies Allergy/AdvReac Type Severity Reaction Status Date / Time fentanyl [FENTANYL] Allergy Intermediate unknown Verified 05/22/21 11:43 Assessment & Plan Assessment & Plan (1) HTN (hypertension): Status: Acute Code(s): I10 - Essential (primary) hypertension (2) Major depressive disorder, recurrent severe without psychotic features: Status: Acute Code(s): F33.2 - Major depressive disorder, recurrent severe without psychotic features (3) Cognitive and neurobehavioral dysfunction following brain injury: Status: Acute Code(s): G31.89 - Other specified degenerative diseases of nervous system; F09 - Unspecified mental disorder due to known physiological condition; S06.9X9S - Unspecified intracranial injury with loss of consciousness of unspecified duration, sequela Assessment and Plan: responding already to ECT less si- brighter affect thinking of future more Looking to go to a family structured setting supported by DDS patient aware this may take at least 6 months CONT PLAN OF CARE Greater than 50% of the session was spent on counseling and/or coordination of care Reason for contiued inpatient stay Substantial Risk for: harm to self, inability to function and rapid decompensation
[2021-06-06 06:00] VITALS: BP 131/74; PULSE 60; RESP 16; TEMP 36.2; O2SAT 96
[2021-06-06 07:00] VITALS: BMI 30.4
[2021-06-06] MEDS: ARIPiprazole 10 MG TABLET PO (08:53)
[2021-06-06] MEDS: lamoTRIgine 100 MG TABLET PO (08:53)
[2021-06-06] MEDS: Docusate Sodium 100 MG CAPSULE PO ×2 (08:54→22:00)
[2021-06-06] MEDS: Escitalopram Oxalate 10 MG TABLET PO (08:54)
[2021-06-06 08:55] VITALS: BP 131/74; PULSE 69
[2021-06-06] MEDS: amLODIPine Besylate 5 MG TABLET PO (08:55)
[2021-06-06] MEDS: Gabapentin 100 MG CAPSULE PO ×2 (08:55→13:23)
[2021-06-06] MEDS: lisinopriL 40 MG TABLET PO (08:55)
[2021-06-06] MEDS: Finasteride 5 MG TABLET PO (08:57)
[2021-06-06] MEDS: Acetaminophen 325 MG TABLET 650 MG PO (13:53)
[2021-06-06] MEDS: polyethylene glycoL 3350 17 GM POWD.PACK PO (17:19)
[2021-06-06 18:00] VITALS: BP 142/78; PULSE 64; RESP 16; TEMP 36.2; O2SAT 97
[2021-06-06] MEDS: Albuterol Sulfate 90 MCG 8 GM INHALER 2 PUFF INHALE (18:09)
[2021-06-06] MEDS: Latanoprost 0.005 % Ophth Sol 2.5 ML DROPS 1 DROP EYE-BOTH (20:50)
[2021-06-06] MEDS: Mirtazapine 7.5 MG TABLET 22.5 MG PO (21:58)
[2021-06-06] MEDS: Melatonin 3 MG TABLET 6 MG PO (21:59)
[2021-06-06] MEDS: traZODone HCL 100 MG TABLET 300 MG PO (21:59)
--- NOTE | 2021-06-06 22:15 | HO.PSYCHPN ---
Subjective Subjective Date of Service: 06/06/21 Reason For Visit: Depression SI Subjective Notes: Conditional Voluntary Guardianship: No Medical Problems Affecting Mental Status: Yes Interim History: Patient tolerating ECT remains sad anxious some improvement noted no cognitive impairment noted from ECT Medication Compliance: Yes Attending Groups: No Mental Status Exam Mental Status Exam Patient Appearance: Well Grooomed Patient Orientation: Person, Place and Time Level of Consciousness: Awake Patient Behavior: Appropriate Mood Description: Withdrawn Affect Description: Constricted Patient Cognition Impaired: No Ability to Follow Directions: Good Speech Pattern: Clear Memory Description: Intact Hallucinations: None Delusions: Not Present Thought Process: Goal Oriented Thought Content: positive for Circumstantial Depressive Symptoms: Increased Anxiety, Difficulty Sleeping and Hopelessness Judgement: Fair Diagnostics Vital Signs (24Hr): Vital Signs - 24 hr 06/06/21 06:00 06/06/21 08:55 06/06/21 18:00 Temperature 97.1 F 97.2 F Pulse Rate 60 69 64 Respiratory Rate 16 16 Blood Pressure 131/74 131/74 142/78 H Pulse Oximetry 96 97 Body Mass Index 30.4 Labs Results: 05/22/21 12:22 05/23/21 07:25 Imaging Radiology Impressions: ITS Impressions Head CT 05/24/21 15:15 IMPRESSION: 1. Status post prior right craniotomy with scattered right periventricular white matter gliosis and compensatory right ventricular dilatation.. 2. Generalized atrophy with ventricular dilatation and prominent cortical sulci and fissures and cisterns. No edema or mass effect. 3. No intracranial hemorrhage or hematoma or extra-axial fluid collection. Medications Medications Current Medications Generic Name Dose Route Start Last Admin Trade Name Freq PRN Reason Stop Dose Admin Acetaminophen 650 mg 05/22/21 17:28 06/06/21 13:53 Acetaminophen 325 Mg Tablet PO 650 mg Q6H PRN Administration Headache/Pain Mild Scale (1-3) Al Hydroxide/Mg Hydroxide 30 ml 05/22/21 17:28 Magnesium Hydrox/Alum Hydrox 30 Ml Oral.Susp PO Q6H PRN Heartburn/Nausea Albuterol Sulfate 2 puff 05/22/21 22:00 06/06/21 18:09 Albuterol Sulfate 90 Mcg 8 Gm Inhaler INHALE 2 puff Q6H PRN Administration Shortness of Breath/Wheezing Amlodipine Besylate 5 mg 05/25/21 09:00 06/06/21 08:55 Amlodipine Besylate 5 Mg Tablet PO 5 mg DAILY TAZ Administration Protocol Aripiprazole 10 mg 05/23/21 09:00 06/06/21 08:53 Aripiprazole 10 Mg Tablet PO 10 mg DAILY TAZ Administration Docusate Sodium 100 mg 05/23/21 09:00 06/06/21 22:00 Docusate Sodium 100 Mg Capsule PO 100 mg BID TAZ Administration Escitalopram Oxalate 10 mg 05/23/21 09:00 06/06/21 08:54 Escitalopram Oxalate 10 Mg Tablet PO 10 mg DAILY TAZ Administration Finasteride 5 mg 05/23/21 09:00 06/06/21 08:57 Finasteride 5 Mg Tablet PO 5 mg DAILY TAZ Administration Gabapentin 100 mg 05/26/21 08:30 06/06/21 13:23 Gabapentin 100 Mg Capsule PO 100 mg BID@0830,1330 TAZ Administration Ibuprofen 400 mg 05/27/21 09:30 05/31/21 04:16 Ibuprofen 400 Mg Tablet PO 400 mg Q6H PRN Administration Pain, Moderate (Pain Scale 4-6 Lamotrigine 100 mg 05/25/21 09:00 06/06/21 08:53 Lamotrigine 100 Mg Tablet PO 100 mg DAILY TAZ Administration Latanoprost 1 drop 05/27/21 21:00 06/06/21 20:50 Latanoprost 0.005 % Ophth No 2.5 Ml Drops EYE-BOTH 1 drop BEDTIME TAZ Administration Lidocaine 1 patch 05/30/21 09:00 06/06/21 17:59 Lidocaine 4 % Patch Adh..Patch TRANSDERMA Not Given DAILY TAZ Protocol Lisinopril 40 mg 06/04/21 09:00 06/06/21 08:55 Lisinopril 40 Mg Tablet PO 40 mg DAILY TAZ Administration Protocol Lorazepam 0.5 mg 06/05/21 13:54 06/05/21 21:01 Lorazepam 0.5 Mg Tablet PO 0.5 mg Q6H PRN Administration Anxiety Magnesium Hydroxide 30 ml 05/22/21 17:28 06/05/21 14:39 Milk Of Magnesia 30 Ml Oral.Susp PO 30 ml DAILY PRN Administration Constipation Melatonin 6 mg 05/28/21 21:00 06/06/21 21:59 Melatonin 3 Mg Tablet PO 6 mg BEDTIME TAZ Administration Mirtazapine 22.5 mg 05/31/21 21:00 06/06/21 21:58 Mirtazapine 7.5 Mg Tablet PO 22.5 mg BEDTIME TAZ Administration Multivitamins/Minerals 1 tab 05/23/21 09:00 06/06/21 08:53 Multivitamin With Minerals Tablet PO 1 tab DAILY TAZ Administration Ondansetron HCl 4 mg 05/28/21 13:46 Ondansetron Odt 4 Mg Tab.Rapdis TRANSLINGU Q8H PRN Nausea and Vomiting Polyethylene Glycol 17 gm 05/25/21 17:00 06/06/21 17:19 Polyethylene Glycol 3350 17 Gm Powd.Pack PO 17 gm DAILY@1700 TAZ Administration Sodium Biphosphate/Sodium Phosphate 118 ml 05/22/21 21:38 Sodium Phosphate,[place]-Dibasic 133 Ml Enema [place] DAILY PRN Constipation Trazodone HCl 300 mg 05/22/21 22:00 06/06/21 21:59 Trazodone Hcl 100 Mg Tablet PO 300 mg BEDTIME TAZ Administration Allergies Allergies Allergy/AdvReac Type Severity Reaction Status Date / Time fentanyl [FENTANYL] Allergy Intermediate unknown Verified 05/22/21 11:43 Assessment & Plan Assessment & Plan (1) HTN (hypertension): Status: Acute Code(s): I10 - Essential (primary) hypertension (2) Major depressive disorder, recurrent severe without psychotic features: Status: Acute Code(s): F33.2 - Major depressive disorder, recurrent severe without psychotic features (3) Cognitive and neurobehavioral dysfunction following brain injury: Status: Acute Code(s): G31.89 - Other specified degenerative diseases of nervous system; F09 - Unspecified mental disorder due to known physiological condition; S06.9X9S - Unspecified intracranial injury with loss of consciousness of unspecified duration, sequela Assessment and Plan: responding already to ECT less si- brighter affect thinking of future more Looking to go to a family structured setting supported by DDS patient aware this may take at least 6 months CONT PLAN OF CARE coordinate outpatient treatment including individual counseling more social and cognitive engagement continue ECT Greater than 50% of the session was spent on counseling and/or coordination of care Reason for contiued inpatient stay Substantial Risk for: harm to self, inability to function and rapid decompensation
[2021-06-07] VITALS (18 sets, daily range): BP systolic 132–180; BP diastolic 68–99; PULSE 62–90; RESP 16–20; TEMP 36.4–36.7; O2SAT 93–97
[2021-06-07] MEDS: amLODIPine Besylate 5 MG TABLET PO (06:17)
[2021-06-07] MEDS: lisinopriL 40 MG TABLET PO (06:18)
--- NOTE | 2021-06-07 07:18 | PC.NURSE ---
0707 pt transfer out of pacu/preop back to psych floor as pt stated earlier he had a cracker at 0330. pt agitated stating now it was just a corner of a cracker pt using expletives. Pt reminded not to eat or drink anything and we would do his procedure after 0930. Anesthesia and Dr will keep posted on the time.
--- NOTE | 2021-06-07 09:17 | PC.NURSE ---
0912 PT RETURNED TO PACU VIA W AID FOR ECT, PIVOT 2 PERSON ASST TO BED
--- NOTE | 2021-06-07 09:29 | HO.ANESPROP2 ---
COUNTS INCLUDE [facility] BEDS AT [facility] Active Problems Active Problems: All Active Problems (Updated 05/24/21 @ 23:38 by Addy Haskins MD) Major depressive disorder, recurrent severe without psychotic features (Acute) Cognitive and neurobehavioral dysfunction following brain injury (Acute) HTN (hypertension) (Acute) Past Medical History Medical History Alcohol use disorder, severe, in sustained remission Cognitive and neurobehavioral dysfunction following brain injury Hernia HTN (hypertension) Major depressive disorder, recurrent Major depressive disorder, recurrent severe without psychotic features Surgical History Surgical History H/O brain surgery History of hip replacement S/P cholecystectomy Social History Social History Household Members: Other Household Members Other:: 3 housemates in skilled nursing Housing: Other Housing Other:: Residential Patient Tobacco Use Status: Never used Tobacco Advance Directives Date on File: 05/27/19 service: No Sexual orientation: Straight/Heterosexual Meds Allergies Allergy/AdvReac Type Severity Reaction Status Date / Time fentanyl [FENTANYL] Allergy Intermediate unknown Verified 05/22/21 11:43 Active Medications: Current Medications Generic Name Dose Route Start Last Admin Trade Name Freq PRN Reason Stop Dose Admin Acetaminophen 650 mg 05/22/21 17:28 06/06/21 13:53 Acetaminophen 325 Mg Tablet PO 650 mg Q6H PRN Administration Headache/Pain Mild Scale (1-3) Al Hydroxide/Mg Hydroxide 30 ml 05/22/21 17:28 Magnesium Hydrox/Alum Hydrox 30 Ml Oral.Susp PO Q6H PRN Heartburn/Nausea Albuterol Sulfate 2 puff 05/22/21 22:00 06/06/21 18:09 Albuterol Sulfate 90 Mcg 8 Gm Inhaler INHALE 2 puff Q6H PRN Administration Shortness of Breath/Wheezing Amlodipine Besylate 5 mg 05/25/21 09:00 06/07/21 06:17 Amlodipine Besylate 5 Mg Tablet PO 5 mg DAILY TAZ Administration Protocol Aripiprazole 10 mg 05/23/21 09:00 06/06/21 08:53 Aripiprazole 10 Mg Tablet PO 10 mg DAILY TAZ Administration Docusate Sodium 100 mg 05/23/21 09:00 06/06/21 22:00 Docusate Sodium 100 Mg Capsule PO 100 mg BID TAZ Administration Escitalopram Oxalate 10 mg 05/23/21 09:00 06/06/21 08:54 Escitalopram Oxalate 10 Mg Tablet PO 10 mg DAILY TAZ Administration Finasteride 5 mg 05/23/21 09:00 06/06/21 08:57 Finasteride 5 Mg Tablet PO 5 mg DAILY TAZ Administration Gabapentin 100 mg 05/26/21 08:30 06/06/21 13:23 Gabapentin 100 Mg Capsule PO 100 mg BID@0830,1330 TAZ Administration Ibuprofen 400 mg 05/27/21 09:30 05/31/21 04:16 Ibuprofen 400 Mg Tablet PO 400 mg Q6H PRN Administration Pain, Moderate (Pain Scale 4-6 Lamotrigine 100 mg 05/25/21 09:00 06/06/21 08:53 Lamotrigine 100 Mg Tablet PO 100 mg DAILY TAZ Administration Latanoprost 1 drop 05/27/21 21:00 06/06/21 20:50 Latanoprost 0.005 % Ophth No 2.5 Ml Drops EYE-BOTH 1 drop BEDTIME TAZ Administration Lidocaine 1 patch 05/30/21 09:00 06/06/21 17:59 Lidocaine 4 % Patch Adh..Patch TRANSDERMA Not Given DAILY TAZ Protocol Lisinopril 40 mg 06/04/21 09:00 06/07/21 06:18 Lisinopril 40 Mg Tablet PO 40 mg DAILY TAZ Administration Protocol Lorazepam 0.5 mg 06/05/21 13:54 06/05/21 21:01 Lorazepam 0.5 Mg Tablet PO 0.5 mg Q6H PRN Administration Anxiety Magnesium Hydroxide 30 ml 05/22/21 17:28 06/05/21 14:39 Milk Of Magnesia 30 Ml Oral.Susp PO 30 ml DAILY PRN Administration Constipation Melatonin 6 mg 05/28/21 21:00 06/06/21 21:59 Melatonin 3 Mg Tablet PO 6 mg BEDTIME TAZ Administration Mirtazapine 22.5 mg 05/31/21 21:00 06/06/21 21:58 Mirtazapine 7.5 Mg Tablet PO 22.5 mg BEDTIME TAZ Administration Multivitamins/Minerals 1 tab 05/23/21 09:00 06/06/21 08:53 Multivitamin With Minerals Tablet PO 1 tab DAILY TAZ Administration Ondansetron HCl 4 mg 05/28/21 13:46 Ondansetron Odt 4 Mg Tab.Rapdis TRANSLINGU Q8H PRN Nausea and Vomiting Polyethylene Glycol 17 gm 05/25/21 17:00 06/06/21 17:19 Polyethylene Glycol 3350 17 Gm Powd.Pack PO 17 gm DAILY@1700 TAZ Administration Sodium Biphosphate/Sodium Phosphate 118 ml 05/22/21 21:38 Sodium Phosphate,[place]-Dibasic 133 Ml Enema [place] DAILY PRN Constipation Trazodone HCl 300 mg 05/22/21 22:00 06/06/21 21:59 Trazodone Hcl 100 Mg Tablet PO 300 mg BEDTIME TAZ Administration Home Medications Medication Instructions Recorded Confirmed Last Taken Type Tylenol 650 mg PO Q6-8H PRN 05/22/21 05/22/21 Unknown History Tylenol Arthritis Pain 650 mg PO DAILY 05/22/21 05/22/21 Unknown History albuterol [Ventolin] See Rx Instructions .ROUTE .COMPLEX 05/22/21 05/22/21 Unknown History amantadine HCl 1 tab PO BID 05/22/21 05/22/21 Unknown History aripiprazole 1 tab PO DAILY 05/22/21 05/22/21 Unknown History clotrimazole See Rx Instructions .ROUTE 05/22/21 05/22/21 Unknown History .COMPLEX PRN dextromethorphan-guaifenesin 10 ml PO Q6-8H PRN 05/22/21 05/22/21 Unknown History [Robitussin DM Max] docusate sodium 1 cap PO BID 05/22/21 05/22/21 Unknown History docusate sodium See Rx Instructions .ROUTE 05/22/21 05/22/21 Unknown History .COMPLEX PRN escitalopram oxalate 1 tab PO DAILY 05/22/21 05/22/21 Unknown History finasteride 1 tab PO DAILY 05/22/21 05/22/21 Unknown History gabapentin enacarbil [Horizant] 1 tab PO BID 05/22/21 05/22/21 Unknown History glycerin [Artificial Tears 1 drp OPHTHALMIC (EYE) Q1-2H PRN 05/22/21 05/22/21 Unknown History (glycerin)] lamotrigine 1 tab PO DAILY 05/22/21 05/22/21 Unknown History lamotrigine 1 tab PO DAILY 05/22/21 05/22/21 Unknown History latanoprost 1 drp OPHTHALMIC (EYE) DAILY 05/22/21 05/22/21 Unknown History lisinopril 1 tab PO DAILY 05/22/21 05/22/21 Unknown History lorazepam 1 tab PO DAILY 05/22/21 05/22/21 Unknown History lorazepam 1 tab PO DAILY 05/22/21 05/22/21 Unknown History lorazepam 1 tab PO DAILY PRN 05/22/21 05/22/21 Unknown History magnesium hydroxide [Milk of 2,400 mg PO PRN 05/22/21 Unknown History Magnesia] melatonin 5 mg PO BEDTIME 05/22/21 05/22/21 Unknown History vkpzkmphwprd-cjbixdxs-vasoje 1 tab PO DAILY 05/22/21 05/22/21 Unknown History [Centrum Silver] polyethylene glycol 3350 17 g PO DAILY 05/22/21 05/22/21 Unknown History polyethylene glycol 3350 17 g PO DAILY PRN 05/22/21 05/22/21 Unknown History psyllium husk [Metamucil] 0.4 g PO DAILY 05/22/21 05/22/21 Unknown History sodium phosphates [Fleet Enema] 118 ml [place] DAILY PRN 05/22/21 05/22/21 Unknown History trazodone 2 tab PO BEDTIME 05/22/21 05/22/21 Unknown History Exam Exam Date and Time: June 07, [id number] Height,Weight and Vital Signs: Height 6 ft 2 in Weight 107.5 kg Last Vital Signs Temp 97.5 F 06/07/21 06:55 Pulse 63 06/07/21 06:55 Resp 20 06/07/21 06:55 BP 148/75 H 06/07/21 06:55 Pulse Ox 97 06/07/21 06:55 Pertinent Lab Results Pertinent Lab Results: Laboratory Tests 05/22/21 05/22/21 05/22/21 12:22 12:22 12:22 WBC 6.1 RBC 4.30 L Hgb 14.4 Hct 42.3 MCV 98.4 H MCH 33.5 H MCHC 34.0 RDW 11.4 Plt Count 159 L MPV 9.8 Immature Gran % (Auto) 0.7 H Neut % (Auto) 59.8 Lymph % (Auto) 25.8 [place] % (Auto) 8.9 Eos % (Auto) 4.3 H Baso % (Auto) 0.5 Lymph # (Auto) 1.6 [place] # (Auto) 0.5 Eos # (Auto) 0.3 Baso # (Auto) 0.0 Abs Immat Gran (auto) 0.04 H Absolute Neuts (auto) 3.6 Absolute Nucleated RBC 0.000 Nucleated RBC % (auto) 0.0 Sodium 139 Potassium 4.1 Chloride 105 Carbon Dioxide 24 Anion Gap 14 BUN 13 Creatinine 0.86 Estim Creat Clear Calc 98.2 Estimated GFR > 60 Random Glucose 85 Fasting Glucose Calcium 9.4 Magnesium Total Bilirubin 0.9 Direct Bilirubin 0.4 AST 26 ALT 45 H Alkaline Phosphatase 81 D Total Protein 6.8 Albumin 4.4 Triglycerides Cholesterol LDL Cholesterol, Calc HDL Cholesterol Vitamin B12 Folate TSH Free T4 Lamotrigine Ethyl Alcohol < 10 COVID-19 (RACHEL) COVID-19 Penneo Com 05/22/21 05/23/21 05/23/21 14:25 07:25 07:25 WBC RBC Hgb Hct MCV MCH MCHC RDW Plt Count MPV Immature Gran % (Auto) Neut % (Auto) Lymph % (Auto) [place] % (Auto) Eos % (Auto) Baso % (Auto) Lymph # (Auto) [place] # (Auto) Eos # (Auto) Baso # (Auto) Abs Immat Gran (auto) Absolute Neuts (auto) Absolute Nucleated RBC Nucleated RBC % (auto) Sodium 140 Potassium 4.0 Chloride 106 Carbon Dioxide 26 Anion Gap 12 BUN 16 Creatinine 0.89 Estim Creat Clear Calc 94.9 Estimated GFR > 60 Random Glucose Fasting Glucose 91 Calcium 9.4 Magnesium 2.2 Total Bilirubin 0.6 Direct Bilirubin AST 26 ALT 43 H Alkaline Phosphatase 88 Total Protein 6.5 Albumin 4.2 Triglycerides 74 Cholesterol 167 LDL Cholesterol, Calc 109 HDL Cholesterol 44 Vitamin B12 757 Folate 19.9 TSH 0.63 Free T4 0.90 Lamotrigine Ethyl Alcohol COVID-19 ([facility]ACHEL) Negative COVID-19 Penneo Com See Note 05/23/21 07:25 WBC RBC Hgb Hct MCV MCH MCHC RDW Plt Count MPV Immature Gran % (Auto) Neut % (Auto) Lymph % (Auto) [place] % (Auto) Eos % (Auto) Baso % (Auto) Lymph # (Auto) [place] # (Auto) Eos # (Auto) Baso # (Auto) Abs Immat Gran (auto) Absolute Neuts (auto) Absolute Nucleated RBC Nucleated RBC % (auto) Sodium Potassium Chloride Carbon Dioxide Anion Gap BUN Creatinine Estim Creat Clear Calc Estimated GFR Random Glucose Fasting Glucose Calcium Magnesium Total Bilirubin Direct Bilirubin AST ALT Alkaline Phosphatase Total Protein Albumin Triglycerides Cholesterol LDL Cholesterol, Calc HDL Cholesterol Vitamin B12 Folate TSH Free T4 Lamotrigine 7.2 Ethyl Alcohol COVID-19 (RACHEL) COVID-19 Clin Com Airway Mallampati Class: II TM Dist: >3cm Neck ROM: Full Assessment and Plan Assessment Anesthesia Assessment: Anesthesia Plan Discussed and Chart Reviewed Final Anesthetic Review NPO: Yes ASA Class: III Final Preanesthetic Review: No Changes in Pt Med Stat, Meds/Allgs Chart Reviewed, Consent Obtained/Reviewed and Anes Risks/Benef Reviewed Patient Risk: Intermediate Procedure Risk: Low Assessment/Block/Sedation in SS: Assess/Block/Sedation-SS Anesthetic Plan Anesthetic Plan: GA Disposition: Standard PACU
--- NOTE | 2021-06-07 09:40 | MHC.SHP ---
Pre-Procedural Eval Section A Date of Service: 06/07/21 The patient is an INPATIENT: Yes Changes since office visit: Yes Patient answered all questions; No Cold of Flu in the past 2 weeks, No New Medical Problems and No Changes in Medication The History & Physical has been completed within 30 days and I have reviewed it.: Yes Section B Chief Complaint: Depression SI Allergies: Allergies Allergy/AdvReac Type Severity Reaction Status Date / Time fentanyl [FENTANYL] Allergy Intermediate unknown Verified 05/22/21 11:43 Plan I have reviewed the history and physical and performed a pertinent physical examination on my patient. No changes have occurred unless specified.
--- NOTE | 2021-06-07 09:41 | HO.ECTPROC ---
ECT Procedure Note Diagnosis/Treatment Date of Service: 06/07/21 Diagnosis: Major Depressive Disorder Previous ECT Date: 06/05/21 Current Treatment Number: 5 ECT Settings Device: THYMATRON DGx Electrode Placement: Bifrontal Program/Pulse Width: 0.25 Energy Percent: 75 Seizure Duration By EEG (in seconds): 88 Medications Administration General Anesthetic: Etomidate (16) Muscle Relaxant: Succinylcholine (100) Ancillary Medications Analgesics: Torodol - Pre ECT Anti-emetics: Zofran - Pre ECT Airway Management Airway Management: Bag Mask Ventilation Treatment Recommendations Energy Percent: 50 Notes: please decrease energy maintain bifrontal
[2021-06-07] MEDS: Acetaminophen 325 MG TABLET 650 MG PO ×2 (11:39→20:42)
[2021-06-07] MEDS: Gabapentin 100 MG CAPSULE PO ×2 (11:39→14:55)
[2021-06-07] MEDS: lamoTRIgine 100 MG TABLET PO (11:39)
[2021-06-07] MEDS: Docusate Sodium 100 MG CAPSULE PO ×2 (11:40→22:05)
[2021-06-07] MEDS: Escitalopram Oxalate 10 MG TABLET PO (11:40)
[2021-06-07] MEDS: Finasteride 5 MG TABLET PO (11:41)
[2021-06-07] MEDS: ARIPiprazole 10 MG TABLET PO (11:41)
[2021-06-07] MEDS: polyethylene glycoL 3350 17 GM POWD.PACK PO (17:18)
[2021-06-07] MEDS: Latanoprost 0.005 % Ophth Sol 2.5 ML DROPS 1 DROP EYE-BOTH (20:15)
[2021-06-07] MEDS: Hydrocortisone 2.5 % Rectal Cr 30 GM TUBE 1 APPL PR (21:59)
[2021-06-07] MEDS: traZODone HCL 100 MG TABLET 300 MG PO (22:04)
[2021-06-07] MEDS: Melatonin 3 MG TABLET 6 MG PO (22:04)
[2021-06-07] MEDS: Mirtazapine 7.5 MG TABLET 22.5 MG PO (22:06)
[2021-06-07] MEDS: LORazepam 0.5 MG TABLET PO (22:22)
--- NOTE | 2021-06-07 22:46 | HO.PSYCHPN ---
Subjective Subjective Date of Service: 06/07/21 Reason For Visit: Depression SI Subjective Notes: Conditional Voluntary Medical Problems Affecting Mental Status: Yes Interim History: Patient has been more irritable agitated difficult time with another patient on the unit Patient isolated irritable Medication Compliance: Yes Side effects from medications: No Attending Groups: No Mental Status Exam Mental Status Exam Patient Appearance: Well Grooomed Patient Orientation: Person, Place and Time Level of Consciousness: Awake Patient Behavior: Anxious and Isolative Mood Description: Withdrawn Affect Description: Constricted, Angry and Apprehensive Patient Cognition Impaired: No Ability to Follow Directions: Good Speech Pattern: Clear Memory Description: Intact Hallucinations: None Delusions: Not Present Thought Process: Goal Oriented Thought Content: positive for Circumstantial Depressive Symptoms: Increased Anxiety, Difficulty Sleeping and Hopelessness Judgement: Fair Diagnostics Vital Signs (24Hr): Vital Signs - 24 hr 06/07/21 06:00 06/07/21 06:17 06/07/21 06:18 Temperature 97.7 F Pulse Rate 62 62 62 Respiratory Rate 18 Blood Pressure 158/75 H 158/75 H 158/75 H Pulse Oximetry 96 06/07/21 06:41 06/07/21 06:55 06/07/21 08:50 Temperature 97.7 F 97.5 F 97.7 F Pulse Rate 62 63 65 Respiratory Rate 18 20 16 Blood Pressure 158/75 H 148/75 H 140/69 H Pulse Oximetry 96 97 97 06/07/21 09:55 06/07/21 10:00 06/07/21 10:05 Temperature Pulse Rate 85 84 81 Respiratory Rate 16 16 16 Blood Pressure 180/93 H 177/99 H 167/91 H Pulse Oximetry 97 96 96 06/07/21 10:10 06/07/21 10:25 06/07/21 10:40 Temperature Pulse Rate 81 74 75 Respiratory Rate 18 18 18 Blood Pressure 175/89 H 161/86 H 174/90 H Pulse Oximetry 96 97 97 06/07/21 10:45 06/07/21 10:50 06/07/21 11:45 Temperature 97.6 F 97.6 F Pulse Rate 76 76 Respiratory Rate 16 16 Blood Pressure 157/86 H 157/86 H 149/82 H Pulse Oximetry 96 96 06/07/21 15:00 06/07/21 17:54 06/07/21 18:00 Temperature 98.0 F 97.5 F Pulse Rate 90 70 82 Respiratory Rate 18 18 Blood Pressure 132/70 137/75 140/68 H Pulse Oximetry 93 95 Body Mass Index 30.4 Labs Results: 05/22/21 12:22 05/23/21 07:25 Imaging Radiology Impressions: ITS Impressions Head CT 05/24/21 15:15 IMPRESSION: 1. Status post prior right craniotomy with scattered right periventricular white matter gliosis and compensatory right ventricular dilatation.. 2. Generalized atrophy with ventricular dilatation and prominent cortical sulci and fissures and cisterns. No edema or mass effect. 3. No intracranial hemorrhage or hematoma or extra-axial fluid collection. Medications Medications Current Medications Generic Name Dose Route Start Last Admin Trade Name Freq PRN Reason Stop Dose Admin Acetaminophen 650 mg 05/22/21 17:28 06/07/21 20:42 Acetaminophen 325 Mg Tablet PO 650 mg Q6H PRN Administration Headache/Pain Mild Scale (1-3) Al Hydroxide/Mg Hydroxide 30 ml 05/22/21 17:28 Magnesium Hydrox/Alum Hydrox 30 Ml Oral.Susp PO Q6H PRN Heartburn/Nausea Albuterol Sulfate 2 puff 05/22/21 22:00 06/06/21 18:09 Albuterol Sulfate 90 Mcg 8 Gm Inhaler INHALE 2 puff Q6H PRN Administration Shortness of Breath/Wheezing Amlodipine Besylate 5 mg 05/25/21 09:00 06/07/21 06:17 Amlodipine Besylate 5 Mg Tablet PO 5 mg DAILY TAZ Administration Protocol Aripiprazole 10 mg 05/23/21 09:00 06/07/21 11:41 Aripiprazole 10 Mg Tablet PO 10 mg DAILY TAZ Administration Docusate Sodium 100 mg 05/23/21 09:00 06/07/21 22:05 Docusate Sodium 100 Mg Capsule PO 100 mg BID TAZ Administration Escitalopram Oxalate 10 mg 05/23/21 09:00 06/07/21 11:40 Escitalopram Oxalate 10 Mg Tablet PO 10 mg DAILY TAZ Administration Finasteride 5 mg 05/23/21 09:00 06/07/21 11:41 Finasteride 5 Mg Tablet PO 5 mg DAILY TAZ Administration Gabapentin 100 mg 05/26/21 08:30 06/07/21 14:55 Gabapentin 100 Mg Capsule PO 100 mg BID@0830,1330 TAZ Administration Hydrocortisone 1 appl 06/07/21 21:15 06/07/21 21:59 Hydrocortisone 2.5 % Rectal Cr 30 Gm Tube [place] 1 appl BEDTIME TAZ Administration Ibuprofen 400 mg 05/27/21 09:30 05/31/21 04:16 Ibuprofen 400 Mg Tablet PO 400 mg Q6H PRN Administration Pain, Moderate (Pain Scale 4-6 Lamotrigine 100 mg 05/25/21 09:00 06/07/21 11:39 Lamotrigine 100 Mg Tablet PO 100 mg DAILY TAZ Administration Latanoprost 1 drop 05/27/21 21:00 06/07/21 20:15 Latanoprost 0.005 % Ophth No 2.5 Ml Drops EYE-BOTH 1 drop BEDTIME TAZ Administration Lidocaine 1 patch 05/30/21 09:00 06/07/21 11:41 Lidocaine 4 % Patch Adh..Patch TRANSDERMA Not Given DAILY TAZ Protocol Lisinopril 40 mg 06/04/21 09:00 06/07/21 06:18 Lisinopril 40 Mg Tablet PO 40 mg DAILY TAZ Administration Protocol Lorazepam 0.5 mg 06/05/21 13:54 06/07/21 22:22 Lorazepam 0.5 Mg Tablet PO 0.5 mg Q6H PRN Administration Anxiety Magnesium Hydroxide 30 ml 05/22/21 17:28 06/05/21 14:39 Milk Of Magnesia 30 Ml Oral.Susp PO 30 ml DAILY PRN Administration Constipation Melatonin 6 mg 05/28/21 21:00 06/07/21 22:04 Melatonin 3 Mg Tablet PO 6 mg BEDTIME TAZ Administration Mirtazapine 22.5 mg 05/31/21 21:00 06/07/21 22:06 Mirtazapine 7.5 Mg Tablet PO 22.5 mg BEDTIME TAZ Administration Multivitamins/Minerals 1 tab 05/23/21 09:00 06/07/21 11:54 Multivitamin With Minerals Tablet PO 1 tab DAILY TAZ Administration Ondansetron HCl 4 mg 05/28/21 13:46 Ondansetron Odt 4 Mg Tab.Rapdis TRANSLINGU Q8H PRN Nausea and Vomiting Polyethylene Glycol 17 gm 05/25/21 17:00 06/07/21 17:18 Polyethylene Glycol 3350 17 Gm Powd.Pack PO 17 gm DAILY@1700 TAZ Administration Sodium Biphosphate/Sodium Phosphate 118 ml 07/07/21 21:38 Sodium Phosphate,[place]-Dibasic 133 Ml Enema [place] DAILY PRN Constipation Trazodone HCl 300 mg 05/22/21 22:00 06/07/21 22:04 Trazodone Hcl 100 Mg Tablet PO 300 mg BEDTIME TAZ Administration Allergies Allergies Allergy/AdvReac Type Severity Reaction Status Date / Time fentanyl [FENTANYL] Allergy Intermediate unknown Verified 05/22/21 11:43 Assessment & Plan Assessment & Plan (1) HTN (hypertension): Status: Acute Code(s): I10 - Essential (primary) hypertension (2) Major depressive disorder, recurrent severe without psychotic features: Status: Acute Code(s): F33.2 - Major depressive disorder, recurrent severe without psychotic features (3) Cognitive and neurobehavioral dysfunction following brain injury: Status: Acute Code(s): G31.89 - Other specified degenerative diseases of nervous system; F09 - Unspecified mental disorder due to known physiological condition; S06.9X9S - Unspecified intracranial injury with loss of consciousness of unspecified duration, sequela Assessment and Plan: Patient more irritability dysphoria unclear if related to other patient on the unit to any withdrawal symptoms from coming off gabapentin and Lamictal consider hold ECT increase Lamictal to 150 mg Looking to go to a family structured setting supported by DDS patient aware this may take at least 6 months CONT PLAN OF CARE coordinate outpatient treatment including individual counseling more social and cognitive engagement nicolasa Greater than 50% of the session was spent on counseling and/or coordination of care Reason for contiued inpatient stay Substantial Risk for: inability to function and rapid decompensation
[2021-06-08] MEDS: Escitalopram Oxalate 10 MG TABLET 5 MG PO (08:39)
[2021-06-08] MEDS: Finasteride 5 MG TABLET PO (08:39)
[2021-06-08] MEDS: Gabapentin 100 MG CAPSULE PO ×2 (08:40→14:08)
[2021-06-08] MEDS: Docusate Sodium 100 MG CAPSULE PO ×2 (08:40→22:12)
[2021-06-08] MEDS: lamoTRIgine 25 MG TABLET 150 MG PO (08:40)
[2021-06-08] MEDS: lisinopriL 40 MG TABLET PO (08:40)
[2021-06-08] MEDS: ARIPiprazole 10 MG TABLET PO (08:40)
[2021-06-08] MEDS: amLODIPine Besylate 5 MG TABLET PO (08:40)
[2021-06-08] MEDS: Acetaminophen 325 MG TABLET 650 MG PO ×2 (14:08→22:19)
[2021-06-08] MEDS: LORazepam 0.5 MG TABLET PO (14:11)
--- NOTE | 2021-06-08 14:24 | HO.PSYCHPN ---
Subjective Subjective Date of Service: 06/08/21 Reason For Visit: Depression SI Interim History: Client is clear understanding of reason for being in the hospital ie depression and suicidal ideation. Has long established relationship with psychiatrist Dr. Haskins. Feels that ECT has been helpful and he is no longer suicidal. Talked about background history and economics and finance. Also enjoyed talking about [employer]. Sleep okay. Appetite okay. Is socializing. Utilizing wheelchair and assistance with ADLs as needed. Medication Compliance: Yes Side effects from medications: No Review of Systems Review of Systems Nil new or acute Mental Status Exam Mental Status Exam Narrative: in wheelchair. Well presented. Good hygiene. Flat affect and resting tremor noted. Pleasant. Engage. Reports improved mood and able to joke. No SI. No HI. Future oriented. No psychosis. No agitation. Insight and judgment good Diagnostics Vital Signs (24Hr): Vital Signs - 24 hr 06/07/21 15:00 06/07/21 17:54 06/07/21 18:00 Temperature 98.0 F 97.5 F Pulse Rate 90 70 82 Respiratory Rate 18 18 Blood Pressure 132/70 137/75 140/68 H Pulse Oximetry 93 95 Body Mass Index 30.4 Labs Results: 05/22/21 12:22 05/23/21 07:25 Imaging Radiology Impressions: ITS Impressions Head CT 05/24/21 15:15 IMPRESSION: 1. Status post prior right craniotomy with scattered right periventricular white matter gliosis and compensatory right ventricular dilatation.. 2. Generalized atrophy with ventricular dilatation and prominent cortical sulci and fissures and cisterns. No edema or mass effect. 3. No intracranial hemorrhage or hematoma or extra-axial fluid collection. Medications Medications Current Medications Generic Name Dose Route Start Last Admin Trade Name Freq PRN Reason Stop Dose Admin Acetaminophen 650 mg 05/22/21 17:28 06/08/21 14:08 Acetaminophen 325 Mg Tablet PO 650 mg Q6H PRN Administration Headache/Pain Mild Scale (1-3) Al Hydroxide/Mg Hydroxide 30 ml 05/22/21 17:28 Magnesium Hydrox/Alum Hydrox 30 Ml Oral.Susp PO Q6H PRN Heartburn/Nausea Albuterol Sulfate 2 puff 05/22/21 22:00 06/06/21 18:09 Albuterol Sulfate 90 Mcg 8 Gm Inhaler INHALE 2 puff Q6H PRN Administration Shortness of Breath/Wheezing Amlodipine Besylate 5 mg 05/25/21 09:00 06/08/21 08:40 Amlodipine Besylate 5 Mg Tablet PO 5 mg DAILY TAZ Administration Protocol Aripiprazole 10 mg 05/23/21 09:00 06/08/21 08:40 Aripiprazole 10 Mg Tablet PO 10 mg DAILY TAZ Administration Docusate Sodium 100 mg 05/23/21 09:00 06/08/21 08:40 Docusate Sodium 100 Mg Capsule PO 100 mg BID TAZ Administration Escitalopram Oxalate 5 mg 06/08/21 09:00 06/08/21 08:39 Escitalopram Oxalate 10 Mg Tablet PO 5 mg DAILY TAZ Administration Finasteride 5 mg 05/23/21 09:00 06/08/21 08:39 Finasteride 5 Mg Tablet PO 5 mg DAILY TAZ Administration Gabapentin 100 mg 05/26/21 08:30 06/08/21 14:08 Gabapentin 100 Mg Capsule PO 100 mg BID@0830,1330 TAZ Administration Hydrocortisone 1 appl 06/07/21 21:15 06/07/21 21:59 Hydrocortisone 2.5 % Rectal Cr 30 Gm Tube NE 1 appl BEDTIME TAZ Administration Ibuprofen 400 mg 05/27/21 09:30 05/31/21 04:16 Ibuprofen 400 Mg Tablet PO 400 mg Q6H PRN Administration Pain, Moderate (Pain Scale 4-6 Lamotrigine 150 mg 06/08/21 09:00 06/08/21 08:40 Lamotrigine 25 Mg Tablet PO 150 mg DAILY TAZ Administration Latanoprost 1 drop 05/27/21 21:00 06/07/21 20:15 Latanoprost 0.005 % Ophth No 2.5 Ml Drops EYE-BOTH 1 drop BEDTIME TAZ Administration Lidocaine 1 patch 05/30/21 09:00 06/08/21 09:03 Lidocaine 4 % Patch Adh..Patch TRANSDERMA Not Given DAILY TAZ Protocol Lisinopril 40 mg 06/04/21 09:00 06/08/21 08:40 Lisinopril 40 Mg Tablet PO 40 mg DAILY TAZ Administration Protocol Lorazepam 0.5 mg 06/05/21 13:54 06/08/21 14:11 Lorazepam 0.5 Mg Tablet PO 0.5 mg Q6H PRN Administration Anxiety Magnesium Hydroxide 30 ml 05/22/21 17:28 06/05/21 14:39 Milk Of Magnesia 30 Ml Oral.Susp PO 30 ml DAILY PRN Administration Constipation Melatonin 6 mg 05/28/21 21:00 06/07/21 22:04 Melatonin 3 Mg Tablet PO 6 mg BEDTIME TAZ Administration Mirtazapine 22.5 mg 05/31/21 21:00 06/07/21 22:06 Mirtazapine 7.5 Mg Tablet PO 22.5 mg BEDTIME TAZ Administration Multivitamins/Minerals 1 tab 05/23/21 09:00 06/08/21 08:40 Multivitamin With Minerals Tablet PO 1 tab DAILY TAZ Administration Ondansetron HCl 4 mg 05/28/21 13:46 Ondansetron Odt 4 Mg Tab.Rapdis TRANSLINGU Q8H PRN Nausea and Vomiting Polyethylene Glycol 17 gm 05/25/21 17:00 06/07/21 17:18 Polyethylene Glycol 3350 17 Gm Powd.Pack PO 17 gm DAILY@1700 TAZ Administration Sodium Biphosphate/Sodium Phosphate 118 ml 05/22/21 21:38 Sodium Phosphate,[place]-Dibasic 133 Ml Enema [place] DAILY PRN Constipation Trazodone HCl 300 mg 05/22/21 22:00 06/07/21 22:04 Trazodone Hcl 100 Mg Tablet PO 300 mg BEDTIME TAZ Administration Allergies Allergies Allergy/AdvReac Type Severity Reaction Status Date / Time fentanyl [FENTANYL] Allergy Intermediate unknown Verified 05/22/21 11:43 Assessment & Plan Assessment & Plan (1) HTN (hypertension): Status: Acute Code(s): I10 - Essential (primary) hypertension (2) Major depressive disorder, recurrent severe without psychotic features: Status: Acute Code(s): F33.2 - Major depressive disorder, recurrent severe without psychotic features (3) Cognitive and neurobehavioral dysfunction following brain injury: Status: Acute Code(s): G31.89 - Other specified degenerative diseases of nervous system; F09 - Unspecified mental disorder due to known physiological condition; S06.9X9S - Unspecified intracranial injury with loss of consciousness of unspecified duration, sequela Assessment and Plan: no changes as per primary treatment team's plan on 06/07/2021 which was: aPatient more irritability dysphoria unclear if related to other patient on the unit to any withdrawal symptoms from coming off gabapentin and Lamictal consider hold Brock's ECT increase Lamictal to 150 mg Looking to go to a family structured setting supported by DDS patient aware this may take at least 6 months CONT PLAN OF CARE coordinate outpatient treatment including individual counseling more social and cognitive engagement nicolasa Greater than 50% of the session was spent on counseling and/or coordination of care Reason for contiued inpatient stay Substantial Risk for: rapid decompensation
[2021-06-08] MEDS: polyethylene glycoL 3350 17 GM POWD.PACK PO (17:05)
[2021-06-08 18:00] VITALS: BP 129/64; PULSE 67; RESP 18; TEMP 36.6; O2SAT 95
[2021-06-08] MEDS: Albuterol Sulfate 90 MCG 8 GM INHALER 2 PUFF INHALE (18:23)
[2021-06-08] MEDS: Latanoprost 0.005 % Ophth Sol 2.5 ML DROPS 1 DROP EYE-BOTH (20:31)
[2021-06-08] MEDS: traZODone HCL 100 MG TABLET 300 MG PO (22:11)
[2021-06-08] MEDS: Mirtazapine 7.5 MG TABLET 22.5 MG PO (22:12)
[2021-06-08] MEDS: Melatonin 3 MG TABLET 6 MG PO (22:13)
[2021-06-09 05:41] VITALS: BP 131/70; PULSE 60; RESP 20; TEMP 36.5; O2SAT 96
[2021-06-09] MEDS: Gabapentin 100 MG CAPSULE PO ×2 (10:09→15:29)
[2021-06-09] MEDS: lamoTRIgine 25 MG TABLET 150 MG PO (10:09)
[2021-06-09] MEDS: ARIPiprazole 10 MG TABLET PO (10:09)
[2021-06-09] MEDS: lisinopriL 40 MG TABLET PO (10:09)
[2021-06-09] MEDS: Finasteride 5 MG TABLET PO (10:10)
[2021-06-09] MEDS: amLODIPine Besylate 5 MG TABLET PO (10:10)
[2021-06-09] MEDS: Docusate Sodium 100 MG CAPSULE PO ×2 (10:10→22:37)
[2021-06-09] MEDS: Escitalopram Oxalate 10 MG TABLET 5 MG PO (10:10)
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
[2021-06-09] MEDS: LORazepam 0.5 MG TABLET PO ×2 (15:29→19:00)
[2021-06-09] MEDS: polyethylene glycoL 3350 17 GM POWD.PACK PO (15:29)
[2021-06-09 18:00] VITALS: BP 161/71; PULSE 69; TEMP 36.6; O2SAT 96
[2021-06-09] MEDS: Latanoprost 0.005 % Ophth Sol 2.5 ML DROPS 1 DROP EYE-BOTH (20:12)
[2021-06-09] MEDS: Mirtazapine 7.5 MG TABLET 22.5 MG PO (22:36)
[2021-06-09] MEDS: Gabapentin 300 MG CAPSULE PO (22:37)
[2021-06-09] MEDS: Melatonin 3 MG TABLET 6 MG PO (22:37)
[2021-06-09] MEDS: traZODone HCL 100 MG TABLET 300 MG PO (22:38)
[2021-06-10] MEDS: LORazepam 0.5 MG TABLET PO ×4 (03:46→15:30)
--- NOTE | 2021-06-10 07:10 | MHC.SHP ---
Pre-Procedural Eval Section A Date of Service: 06/10/21 The patient is an INPATIENT: Yes Changes since office visit: No Cold of Flu in the past 2 weeks, No New Medical Problems, No Changes in Medication and No Patient answered all questions The History & Physical has been completed within 30 days and I have reviewed it.: Yes Section B Chief Complaint: Depression SI Allergies: Allergies Allergy/AdvReac Type Severity Reaction Status Date / Time fentanyl [FENTANYL] Allergy Intermediate unknown Verified 05/22/21 11:43 Plan I have reviewed the history and physical and performed a pertinent physical examination on my patient. No changes have occurred unless specified.
[2021-06-10 09:19] VITALS: BP 145/79; PULSE 63; RESP 18; TEMP 36.7; O2SAT 98
[2021-06-10] MEDS: Docusate Sodium 100 MG CAPSULE PO ×2 (09:21→21:39)
[2021-06-10] MEDS: lamoTRIgine 25 MG TABLET 150 MG PO (09:21)
[2021-06-10] MEDS: ARIPiprazole 10 MG TABLET PO (09:21)
[2021-06-10] MEDS: Finasteride 5 MG TABLET PO (09:22)
[2021-06-10] MEDS: Ibuprofen 400 MG TABLET PO (09:22)
[2021-06-10] MEDS: Gabapentin 300 MG CAPSULE PO ×3 (09:22→21:40)
[2021-06-10 09:23] VITALS: BP 145/79; PULSE 63
[2021-06-10] MEDS: amLODIPine Besylate 5 MG TABLET PO (09:23)
[2021-06-10] MEDS: lisinopriL 40 MG TABLET PO (09:23)
[2021-06-10] MEDS: Albuterol Sulfate 90 MCG 8 GM INHALER 2 PUFF INHALE (09:24)
[2021-06-10] MEDS: Hydrocortisone 2.5 % Rectal Cr 30 GM TUBE 1 APPL PR (09:24)
[2021-06-10] MEDS: Escitalopram Oxalate 10 MG TABLET 5 MG PO (09:45)
[2021-06-10] MEDS: polyethylene glycoL 3350 17 GM POWD.PACK PO (17:22)
[2021-06-10 18:00] VITALS: BP 125/65; PULSE 67; TEMP 36.6; O2SAT 96
[2021-06-10] MEDS: LORazepam 1 MG TABLET PO (21:38)
[2021-06-10] MEDS: Melatonin 3 MG TABLET 6 MG PO (21:39)
[2021-06-10] MEDS: Mirtazapine 15 MG TABLET 30 MG PO (21:40)
[2021-06-10] MEDS: traZODone HCL 100 MG TABLET 300 MG PO (21:40)
[2021-06-10] MEDS: Latanoprost 0.005 % Ophth Sol 2.5 ML DROPS 1 DROP EYE-BOTH (21:41)
--- NOTE | 2021-06-10 22:13 | HO.PSYCHPN ---
Subjective Subjective Date of Service: 06/10/21 Reason For Visit: Depression SI Subjective Notes: Conditional Voluntary Guardianship: No Medical Problems Affecting Mental Status: Yes Interim History: Patient had difficult time has been triggered repeatedly by other patients on the unit 1 who is quite manic intrusive and aggressive. ECT was held today trying to see if patient would regroup on higher dose of gabapentin Lamictal had been increased Medication Compliance: Yes Mental Status Exam Mental Status Exam Narrative: in wheelchair. Well presented. Good hygiene. Flat affect and resting tremor noted. Pleasant. Engage. Reports improved mood and able to joke. No SI. No HI. Other times states he is easily triggered he does seem more isolated Patient Appearance: Well Grooomed Patient Orientation: Person, Place and Time Level of Consciousness: Awake Patient Behavior: Anxious and Isolative Mood Description: Withdrawn Affect Description: Constricted, Angry and Apprehensive Patient Cognition Impaired: No Ability to Follow Directions: Good Speech Pattern: Clear Memory Description: Intact Diagnostics Vital Signs (24Hr): Vital Signs - 24 hr 06/10/21 09:19 06/10/21 09:23 06/10/21 18:00 Temperature 98.0 F 98 F Pulse Rate 63 63 67 Respiratory Rate 18 Blood Pressure 145/79 H 145/79 H 125/65 Pulse Oximetry 98 96 Body Mass Index 30.4 Labs Results: 05/22/21 12:22 05/23/21 07:25 Imaging Radiology Impressions: ITS Impressions Head CT 05/24/21 15:15 IMPRESSION: 1. Status post prior right craniotomy with scattered right periventricular white matter gliosis and compensatory right ventricular dilatation.. 2. Generalized atrophy with ventricular dilatation and prominent cortical sulci and fissures and cisterns. No edema or mass effect. 3. No intracranial hemorrhage or hematoma or extra-axial fluid collection. Medications Medications Current Medications Generic Name Dose Route Start Last Admin Trade Name Freq PRN Reason Stop Dose Admin Acetaminophen 650 mg 05/22/21 17:28 06/08/21 22:19 Acetaminophen 325 Mg Tablet PO 650 mg Q6H PRN Administration Headache/Pain Mild Scale (1-3) Al Hydroxide/Mg Hydroxide 30 ml 05/22/21 17:28 Magnesium Hydrox/Alum Hydrox 30 Ml Oral.Susp PO Q6H PRN Heartburn/Nausea Albuterol Sulfate 2 puff 05/22/21 22:00 06/10/21 09:24 Albuterol Sulfate 90 Mcg 8 Gm Inhaler INHALE 2 puff Q6H PRN Administration Shortness of Breath/Wheezing Amlodipine Besylate 5 mg 05/25/21 09:00 06/10/21 09:23 Amlodipine Besylate 5 Mg Tablet PO 5 mg DAILY TAZ Administration Protocol Aripiprazole 5 mg 06/11/21 09:00 Aripiprazole 5 Mg Tablet PO DAILY TAZ Docusate Sodium 100 mg 05/23/21 09:00 06/10/21 21:39 Docusate Sodium 100 Mg Capsule PO 100 mg BID TAZ Administration Escitalopram Oxalate 5 mg 06/08/21 09:00 06/10/21 09:45 Escitalopram Oxalate 10 Mg Tablet PO 5 mg DAILY TAZ Administration Finasteride 5 mg 05/23/21 09:00 06/10/21 09:22 Finasteride 5 Mg Tablet PO 5 mg DAILY TAZ Administration Gabapentin 300 mg 06/09/21 21:00 06/10/21 21:40 Gabapentin 300 Mg Capsule PO 300 mg TID TAZ Administration Hydrocortisone 1 appl 06/09/21 10:03 Hydrocortisone 2.5 % Rectal Cr 30 Gm Tube [place] 6XD PRN after each bowel movement Ibuprofen 400 mg 05/27/21 09:30 06/10/21 09:22 Ibuprofen 400 Mg Tablet PO 400 mg Q6H PRN Administration Pain, Moderate (Pain Scale 4-6 Lamotrigine 150 mg 06/08/21 09:00 06/10/21 09:21 Lamotrigine 25 Mg Tablet PO 150 mg DAILY TAZ Administration Latanoprost 1 drop 05/27/21 21:00 06/10/21 21:41 Latanoprost 0.005 % Ophth No 2.5 Ml Drops EYE-BOTH 1 drop BEDTIME TAZ Administration Lidocaine 1 patch 05/30/21 09:00 06/10/21 14:31 Lidocaine 4 % Patch Adh..Patch TRANSDERMA Not Given DAILY TAZ Protocol Lisinopril 40 mg 06/04/21 09:00 06/10/21 09:23 Lisinopril 40 Mg Tablet PO 40 mg DAILY TAZ Administration Protocol Lorazepam 1 mg 06/10/21 21:00 06/10/21 21:38 Lorazepam 1 Mg Tablet PO 1 mg BEDTIME TAZ Administration Lorazepam 0.5 mg 06/11/21 09:00 06/10/21 15:29 Lorazepam 0.5 Mg Tablet PO 0.5 mg DAILY TAZ Administration Lorazepam 0.5 mg 06/10/21 15:11 06/10/21 15:30 Lorazepam 0.5 Mg Tablet PO 0.5 mg DAILY PRN Administration anxiety/restlessness Magnesium Hydroxide 30 ml 05/22/21 17:28 06/05/21 14:39 Milk Of Magnesia 30 Ml Oral.Susp PO 30 ml DAILY PRN Administration Constipation Melatonin 6 mg 05/28/21 21:00 06/10/21 21:39 Melatonin 3 Mg Tablet PO 6 mg BEDTIME TAZ Administration Mirtazapine 30 mg 06/10/21 21:00 06/10/21 21:40 Mirtazapine 15 Mg Tablet PO 30 mg BEDTIME TAZ Administration Multivitamins/Minerals 1 tab 05/23/21 09:00 06/10/21 09:22 Multivitamin With Minerals Tablet PO 1 tab DAILY TAZ Administration Ondansetron HCl 4 mg 05/28/21 13:46 Ondansetron Odt 4 Mg Tab.Rapdis TRANSLINGU Q8H PRN Nausea and Vomiting Polyethylene Glycol 17 gm 05/25/21 17:00 06/10/21 17:22 Polyethylene Glycol 3350 17 Gm Powd.Pack PO 17 gm DAILY@1700 TAZ Administration Sodium Biphosphate/Sodium Phosphate 118 ml 05/22/21 21:38 Sodium Phosphate,[place]-Dibasic 133 Ml Enema [place] DAILY PRN Constipation Trazodone HCl 300 mg 05/22/21 22:00 06/10/21 21:40 Trazodone Hcl 100 Mg Tablet PO 300 mg BEDTIME TAZ Administration Allergies Allergies Allergy/AdvReac Type Severity Reaction Status Date / Time fentanyl [FENTANYL] Allergy Intermediate unknown Verified 05/22/21 11:43 Assessment & Plan Assessment & Plan (1) HTN (hypertension): Status: Acute Code(s): I10 - Essential (primary) hypertension (2) Major depressive disorder, recurrent severe without psychotic features: Status: Acute Code(s): F33.2 - Major depressive disorder, recurrent severe without psychotic features (3) Cognitive and neurobehavioral dysfunction following brain injury: Status: Acute Code(s): G31.89 - Other specified degenerative diseases of nervous system; F09 - Unspecified mental disorder due to known physiological condition; S06.9X9S - Unspecified intracranial injury with loss of consciousness of unspecified duration, sequela Assessment and Plan: Patient more irritability dysphoria unclear if related to other patient on the unit to any withdrawal symptoms from coming off gabapentin and Lamictal ECT held restart gabapentin 300 t.i.d. Lamictal increased to 150 taper Lexapro taper Abilify consider Seroquel Ativan restarted Looking to go to a family structured setting supported by DDS patient aware this may take at least 6 months CONT PLAN OF CARE coordinate outpatient treatment including individual counseling more social and cognitive engagement nicolasa Greater than 50% of the session was spent on counseling and/or coordination of care Reason for contiued inpatient stay Substantial Risk for: harm to self, inability to function and rapid decompensation
[2021-06-11 06:00] VITALS: BP 159/74; PULSE 77; RESP 18; TEMP 36.3
[2021-06-11] MEDS: Docusate Sodium 100 MG CAPSULE PO ×2 (09:28→21:26)
[2021-06-11] MEDS: lamoTRIgine 25 MG TABLET 150 MG PO (09:29)
[2021-06-11 09:31] VITALS: BP 148/72; PULSE 55
[2021-06-11] MEDS: lisinopriL 40 MG TABLET PO (09:31)
[2021-06-11 09:33] VITALS: BP 148/72; PULSE 55
[2021-06-11] MEDS: Gabapentin 300 MG CAPSULE PO ×3 (09:33→21:25)
[2021-06-11] MEDS: amLODIPine Besylate 5 MG TABLET PO (09:33)
[2021-06-11] MEDS: Escitalopram Oxalate 10 MG TABLET 5 MG PO (09:34)
[2021-06-11] MEDS: ARIPiprazole 5 MG TABLET PO (09:34)
[2021-06-11] MEDS: Finasteride 5 MG TABLET PO (09:35)
[2021-06-11] MEDS: Ibuprofen 400 MG TABLET PO ×2 (09:41→14:15)
[2021-06-11] MEDS: Acetaminophen 325 MG TABLET 650 MG PO (09:48)
[2021-06-11] MEDS: Lidocaine 4 % Patch ADH..PATCH 1 PATCH TRANSDERMA (09:49)
[2021-06-11] MEDS: LORazepam 0.5 MG TABLET PO ×2 (10:28→14:21)
[2021-06-11] MEDS: Hydrocortisone 2.5 % Rectal Cr 30 GM TUBE 1 APPL PR ×2 (14:44→23:43)
[2021-06-11] MEDS: polyethylene glycoL 3350 17 GM POWD.PACK PO (17:31)
[2021-06-11 18:00] VITALS: BP 162/73; PULSE 77; RESP 16; TEMP 36.1; O2SAT 96
[2021-06-11] MEDS: Latanoprost 0.005 % Ophth Sol 2.5 ML DROPS 1 DROP EYE-BOTH (20:37)
[2021-06-11] MEDS: Melatonin 3 MG TABLET 6 MG PO (21:25)
[2021-06-11] MEDS: Mirtazapine 15 MG TABLET 30 MG PO (21:25)
[2021-06-11] MEDS: traZODone HCL 100 MG TABLET 300 MG PO (21:25)
--- NOTE | 2021-06-11 22:25 | HO.PSYCHPN ---
Subjective Subjective Date of Service: 06/11/21 Reason For Visit: Depression SI Subjective Notes: Conditional Voluntary Guardianship: No Medical Problems Affecting Mental Status: Yes Interim History: Mental Status Exam Mental Status Exam Patient Appearance: Well Grooomed Patient Orientation: Person, Place and Time Level of Consciousness: Awake Patient Behavior: Appropriate and Good Eye Contact Behavior Comments: pt was less irritable less agitated Mood Description: Withdrawn and Appropriate Affect Description: Constricted, Anxious, Blunted and Apprehensive Patient Cognition Impaired: No Ability to Follow Directions: Good Speech Pattern: Clear and Delayed Memory Description: Intact Diagnostics Vital Signs (24Hr): Vital Signs - 24 hr 06/11/21 06:00 06/11/21 09:31 06/11/21 09:33 Temperature 97.4 F Pulse Rate 77 55 55 Respiratory Rate 18 Blood Pressure 159/74 H 148/72 H 148/72 H Pulse Oximetry 06/11/21 18:00 Temperature 97.0 F Pulse Rate 77 Respiratory Rate 16 Blood Pressure 162/73 H Pulse Oximetry 96 Body Mass Index 30.4 Labs Results: 05/22/21 12:22 05/23/21 07:25 Imaging Radiology Impressions: ITS Impressions Head CT 05/24/21 15:15 IMPRESSION: 1. Status post prior right craniotomy with scattered right periventricular white matter gliosis and compensatory right ventricular dilatation.. 2. Generalized atrophy with ventricular dilatation and prominent cortical sulci and fissures and cisterns. No edema or mass effect. 3. No intracranial hemorrhage or hematoma or extra-axial fluid collection. Medications Medications Current Medications Generic Name Dose Route Start Last Admin Trade Name Freq PRN Reason Stop Dose Admin Acetaminophen 650 mg 05/22/21 17:28 06/11/21 09:48 Acetaminophen 325 Mg Tablet PO 650 mg Q6H PRN Administration Headache/Pain Mild Scale (1-3) Al Hydroxide/Mg Hydroxide 30 ml 05/22/21 17:28 Magnesium Hydrox/Alum Hydrox 30 Ml Oral.Susp PO Q6H PRN Heartburn/Nausea Albuterol Sulfate 2 puff 05/22/21 22:00 06/10/21 09:24 Albuterol Sulfate 90 Mcg 8 Gm Inhaler INHALE 2 puff Q6H PRN Administration Shortness of Breath/Wheezing Amlodipine Besylate 5 mg 05/25/21 09:00 06/11/21 09:33 Amlodipine Besylate 5 Mg Tablet PO 5 mg DAILY TAZ Administration Protocol Aripiprazole 5 mg 06/11/21 09:00 06/11/21 09:34 Aripiprazole 5 Mg Tablet PO 5 mg DAILY TAZ Administration Docusate Sodium 100 mg 05/23/21 09:00 06/11/21 21:26 Docusate Sodium 100 Mg Capsule PO 100 mg BID TAZ Administration Escitalopram Oxalate 5 mg 06/08/21 09:00 06/11/21 09:34 Escitalopram Oxalate 10 Mg Tablet PO 5 mg DAILY TAZ Administration Finasteride 5 mg 05/23/21 09:00 06/11/21 09:35 Finasteride 5 Mg Tablet PO 5 mg DAILY TAZ Administration Gabapentin 300 mg 06/09/21 21:00 06/11/21 21:25 Gabapentin 300 Mg Capsule PO 300 mg TID TAZ Administration Hydrocortisone 1 appl 06/09/21 10:03 06/11/21 14:44 Hydrocortisone 2.5 % Rectal Cr 30 Gm Tube [place] 1 appl 6XD PRN Administration after each bowel movement Ibuprofen 400 mg 05/27/21 09:30 06/11/21 14:15 Ibuprofen 400 Mg Tablet PO 400 mg Q6H PRN Administration Pain, Moderate (Pain Scale 4-6 Lamotrigine 150 mg 06/08/21 09:00 06/11/21 09:29 Lamotrigine 25 Mg Tablet PO 150 mg DAILY TAZ Administration Latanoprost 1 drop 05/27/21 21:00 06/11/21 20:37 Latanoprost 0.005 % Ophth No 2.5 Ml Drops EYE-BOTH 1 drop BEDTIME TAZ Administration Lidocaine 1 patch 05/30/21 09:00 06/11/21 09:49 Lidocaine 4 % Patch Adh..Patch TRANSDERMA 1 patch DAILY TAZ Administration Protocol Lisinopril 40 mg 06/04/21 09:00 06/11/21 09:31 Lisinopril 40 Mg Tablet PO 40 mg DAILY TAZ Administration Protocol Lorazepam 1 mg 06/10/21 21:00 06/11/21 20:37 Lorazepam 1 Mg Tablet PO Not Given BEDTIME TAZ Lorazepam 0.5 mg 06/11/21 09:00 06/11/21 10:28 Lorazepam 0.5 Mg Tablet PO 0.5 mg DAILY TAZ Administration Lorazepam 0.5 mg 06/11/21 10:39 06/11/21 14:21 Lorazepam 0.5 Mg Tablet PO 0.5 mg Q6H PRN Administration anxiety/restlessness Magnesium Hydroxide 30 ml 05/22/21 17:28 06/05/21 14:39 Milk Of Magnesia 30 Ml Oral.Susp PO 30 ml DAILY PRN Administration Constipation Melatonin 6 mg 05/28/21 21:00 06/11/21 21:25 Melatonin 3 Mg Tablet PO 6 mg BEDTIME TAZ Administration Mirtazapine 30 mg 06/10/21 21:00 06/11/21 21:25 Mirtazapine 15 Mg Tablet PO 30 mg BEDTIME TAZ Administration Multivitamins/Minerals 1 tab 05/23/21 09:00 06/11/21 09:28 Multivitamin With Minerals Tablet PO 1 tab DAILY TAZ Administration Ondansetron HCl 4 mg 05/28/21 13:46 Ondansetron Odt 4 Mg Tab.Rapdis TRANSLINGU Q8H PRN Nausea and Vomiting Polyethylene Glycol 17 gm 05/25/21 17:00 06/11/21 17:31 Polyethylene Glycol 3350 17 Gm Powd.Pack PO 17 gm DAILY@1700 TAZ Administration Sodium Biphosphate/Sodium Phosphate 118 ml 05/22/21 21:38 Sodium Phosphate,[place]-Dibasic 133 Ml Enema [place] DAILY PRN Constipation Trazodone HCl 300 mg 05/22/21 22:00 06/11/21 21:25 Trazodone Hcl 100 Mg Tablet PO 300 mg BEDTIME TAZ Administration Allergies Allergies Allergy/AdvReac Type Severity Reaction Status Date / Time fentanyl [FENTANYL] Allergy Intermediate unknown Verified 05/22/21 11:43 Assessment & Plan Assessment & Plan (1) HTN (hypertension): Status: Acute Code(s): I10 - Essential (primary) hypertension (2) Major depressive disorder, recurrent severe without psychotic features: Status: Acute Code(s): F33.2 - Major depressive disorder, recurrent severe without psychotic features (3) Cognitive and neurobehavioral dysfunction following brain injury: Status: Acute Code(s): G31.89 - Other specified degenerative diseases of nervous system; F09 - Unspecified mental disorder due to known physiological condition; S06.9X9S - Unspecified intracranial injury with loss of consciousness of unspecified duration, sequela Assessment and Plan: Patient more irritability dysphoria unclear if related to other patient on the unit to any withdrawal symptoms from coming off gabapentin and Lamictal gabapentin 300 t.i.d. Lamictal increased to 150 taper Lexapro taper Abilify consider Seroquel Ativan restarted ECT for tomorrow monitor response Looking to go to a family structured setting supported by DDS patient aware this may take at least 6 months CONT PLAN OF CARE coordinate outpatient treatment including individual counseling more social and cognitive engagement nicolasa Greater than 50% of the session was spent on counseling and/or coordination of care Reason for contiued inpatient stay Substantial Risk for: inability to function and rapid decompensation
[2021-06-12] VITALS (12 sets, daily range): BP systolic 127–189; BP diastolic 64–94; PULSE 57–98; RESP 16–20; TEMP 36.2–36.5; O2SAT 95–99; BMI 29.5
[2021-06-12] MEDS: Acetaminophen 325 MG TABLET 650 MG PO ×2 (04:17→19:48)
[2021-06-12] MEDS: amLODIPine Besylate 5 MG TABLET PO (06:29)
--- NOTE | 2021-06-12 07:03 | HO.ANESPROP2 ---
[facility] Active Problems Active Problems: All Active Problems (Updated 05/24/21 @ 23:38 by Addy Haskins MD) Major depressive disorder, recurrent severe without psychotic features (Acute) Cognitive and neurobehavioral dysfunction following brain injury (Acute) HTN (hypertension) (Acute) Past Medical History Medical History Alcohol use disorder, severe, in sustained remission Cognitive and neurobehavioral dysfunction following brain injury Hernia HTN (hypertension) Major depressive disorder, recurrent Major depressive disorder, recurrent severe without psychotic features Family History Family history of problems with anesthesia: No Surgical History Surgical History H/O brain surgery History of hip replacement S/P cholecystectomy History of Problems with Anesthesia: No Social History Social History Household Members: Other Household Members Other:: 3 housemates in [facility] Housing: Other Housing Other:: [facility] Patient Tobacco Use Status: Never used Tobacco Advance Directives Date on File: 05/27/19 service: No Sexual orientation: Straight/Heterosexual Meds Allergies Allergy/AdvReac Type Severity Reaction Status Date / Time fentanyl [FENTANYL] Allergy Intermediate unknown Verified 05/22/21 11:43 Active Medications: Current Medications Generic Name Dose Route Start Last Admin Trade Name Freq PRN Reason Stop Dose Admin Acetaminophen 650 mg 05/22/21 17:28 06/12/21 04:17 Acetaminophen 325 Mg Tablet PO 650 mg Q6H PRN Administration Headache/Pain Mild Scale (1-3) Al Hydroxide/Mg Hydroxide 30 ml 05/22/21 17:28 Magnesium Hydrox/Alum Hydrox 30 Ml Oral.Susp PO Q6H PRN Heartburn/Nausea Albuterol Sulfate 2 puff 05/22/21 22:00 06/10/21 09:24 Albuterol Sulfate 90 Mcg 8 Gm Inhaler INHALE 2 puff Q6H PRN Administration Shortness of Breath/Wheezing Amlodipine Besylate 5 mg 05/25/21 09:00 06/12/21 06:29 Amlodipine Besylate 5 Mg Tablet PO 5 mg DAILY TAZ Administration Protocol Aripiprazole 5 mg 06/11/21 09:00 06/11/21 09:34 Aripiprazole 5 Mg Tablet PO 5 mg DAILY TAZ Administration Docusate Sodium 100 mg 05/23/21 09:00 06/11/21 21:26 Docusate Sodium 100 Mg Capsule PO 100 mg BID TAZ Administration Escitalopram Oxalate 5 mg 06/08/21 09:00 06/11/21 09:34 Escitalopram Oxalate 10 Mg Tablet PO 5 mg DAILY TAZ Administration Finasteride 5 mg 05/23/21 09:00 06/11/21 09:35 Finasteride 5 Mg Tablet PO 5 mg DAILY TAZ Administration Gabapentin 300 mg 06/09/21 21:00 06/11/21 21:25 Gabapentin 300 Mg Capsule PO 300 mg TID TAZ Administration Hydrocortisone 1 appl 06/09/21 10:03 06/11/21 23:43 Hydrocortisone 2.5 % Rectal Cr 30 Gm Tube [place] 1 appl 6XD PRN Administration after each bowel movement Lactated Ringer's 1,000 mls @ 50 mls/hr 06/12/21 07:15 Lr IVCONT .Q20H TAZ Ibuprofen 400 mg 05/27/21 09:30 06/11/21 14:15 Ibuprofen 400 Mg Tablet PO 400 mg Q6H PRN Administration Pain, Moderate (Pain Scale 4-6 Lamotrigine 150 mg 06/08/21 09:00 06/11/21 09:29 Lamotrigine 25 Mg Tablet PO 150 mg DAILY TAZ Administration Latanoprost 1 drop 05/27/21 21:00 06/11/21 20:37 Latanoprost 0.005 % Ophth No 2.5 Ml Drops EYE-BOTH 1 drop BEDTIME TAZ Administration Lidocaine 1 patch 05/30/21 09:00 06/11/21 09:49 Lidocaine 4 % Patch Adh..Patch TRANSDERMA 1 patch DAILY TAZ Administration Protocol Lisinopril 40 mg 06/04/21 09:00 06/11/21 09:31 Lisinopril 40 Mg Tablet PO 40 mg DAILY TAZ Administration Protocol Lorazepam 1 mg 06/10/21 21:00 06/11/21 20:37 Lorazepam 1 Mg Tablet PO Not Given BEDTIME TAZ Lorazepam 0.5 mg 06/11/21 09:00 06/11/21 10:28 Lorazepam 0.5 Mg Tablet PO 0.5 mg DAILY TAZ Administration Lorazepam 0.5 mg 06/11/21 10:39 06/11/21 14:21 Lorazepam 0.5 Mg Tablet PO 0.5 mg Q6H PRN Administration anxiety/restlessness Magnesium Hydroxide 30 ml 05/22/21 17:28 06/05/21 14:39 Milk Of Magnesia 30 Ml Oral.Susp PO 30 ml DAILY PRN Administration Constipation Melatonin 6 mg 05/28/21 21:00 06/11/21 21:25 Melatonin 3 Mg Tablet PO 6 mg BEDTIME TAZ Administration Mirtazapine 30 mg 06/10/21 21:00 06/11/21 21:25 Mirtazapine 15 Mg Tablet PO 30 mg BEDTIME TAZ Administration Multivitamins/Minerals 1 tab 05/23/21 09:00 06/11/21 09:28 Multivitamin With Minerals Tablet PO 1 tab DAILY TAZ Administration Ondansetron HCl 4 mg 05/28/21 13:46 Ondansetron Odt 4 Mg Tab.Rapdis TRANSLINGU Q8H PRN Nausea and Vomiting Polyethylene Glycol 17 gm 05/25/21 17:00 06/11/21 17:31 Polyethylene Glycol 3350 17 Gm Powd.Pack PO 17 gm DAILY@1700 TAZ Administration Sodium Biphosphate/Sodium Phosphate 118 ml 05/22/21 21:38 Sodium Phosphate,[place]ome[place]-Dibasic 133 Ml Enema [place] DAILY PRN Constipation Trazodone HCl 300 mg 05/22/21 22:00 06/11/21 21:25 Trazodone Hcl 100 Mg Tablet PO 300 mg BEDTIME TAZ Administration Home Medications Medication Instructions Recorded Confirmed Last Taken Type Tylenol 650 mg PO Q6-8H PRN 05/22/21 05/22/21 Unknown History Tylenol Arthritis Pain 650 mg PO DAILY 05/22/21 05/22/21 Unknown History albuterol 90 mcg/actuation aerosol See Rx Instructions .ROUTE .COMPLEX 05/22/21 05/22/21 Unknown History inhaler amantadine HCl 100 mg tablet 1 tab PO BID 05/22/21 05/22/21 Unknown History aripiprazole 10 mg tablet 1 tab PO DAILY 05/22/21 05/22/21 Unknown History clotrimazole 1 % topical solution See Rx Instructions .ROUTE 05/22/21 05/22/21 Unknown History .COMPLEX PRN dextromethorphan-guaifenesin 10 10 ml PO Q6-8H PRN 05/22/21 05/22/21 Unknown History mg-200 mg/5 mL oral liquid docusate sodium 100 mg capsule 1 cap PO BID 05/22/21 05/22/21 Unknown History docusate sodium 100 mg capsule See Rx Instructions .ROUTE 05/22/21 05/22/21 Unknown History .COMPLEX PRN escitalopram oxalate 20 mg tablet 1 tab PO DAILY 05/22/21 05/22/21 Unknown History finasteride 5 mg tablet 1 tab PO DAILY 05/22/21 05/22/21 Unknown History gabapentin enacarbil 600 mg 1 tab PO BID 05/22/21 05/22/21 Unknown History tablet,extended release (Horizant ER) glycerin 1 drp OPHTHALMIC (EYE) Q1-2H PRN 05/22/21 05/22/21 Unknown History lamotrigine 150 mg tablet 1 tab PO DAILY 05/22/21 05/22/21 Unknown History lamotrigine 200 mg tablet 1 tab PO DAILY 05/22/21 05/22/21 Unknown History latanoprost 0.005 % eye drops 1 drp OPHTHALMIC (EYE) DAILY 05/22/21 05/22/21 Unknown History lisinopril 10 mg tablet 1 tab PO DAILY 05/22/21 05/22/21 Unknown History lorazepam 0.5 mg tablet 1 tab PO DAILY 05/22/21 05/22/21 Unknown History lorazepam 0.5 mg tablet 1 tab PO DAILY PRN 05/22/21 05/22/21 Unknown History lorazepam 1 mg tablet 1 tab PO DAILY 05/22/21 05/22/21 Unknown History magnesium hydroxide 400 mg/5 mL 2,400 mg PO PRN 05/22/21 Unknown History oral suspension (Milk of Magnesia) melatonin 5 mg tablet 5 mg PO BEDTIME 05/22/21 05/22/21 Unknown History hqrwsdnxkums-mwyvwngl-ciaygd tablet 1 tab PO DAILY 05/22/21 05/22/21 Unknown History polyethylene glycol 3350 17 17 g PO DAILY 05/22/21 05/22/21 Unknown History gram/dose oral powder polyethylene glycol 3350 17 17 g PO DAILY PRN 05/22/21 05/22/21 Unknown History gram/dose oral powder psyllium husk 0.4 gram capsule 0.4 g PO DAILY 05/22/21 05/22/21 Unknown History (Metamucil) sodium phosphates 19 gram-7 118 ml [place] DAILY PRN 05/22/21 05/22/21 Unknown History gram/118 mL enema (Fleet Enema) trazodone 150 mg tablet 2 tab PO BEDTIME 05/22/21 05/22/21 Unknown History Exam Exam Date and Time: June 12, 2021702 Height,Weight and Vital Signs: Height 6 ft 2 in Weight 104.326 kg Last Vital Signs Temp 97.6 F 06/12/21 06:29 Pulse 58 06/12/21 06:29 Resp 16 06/12/21 06:29 BP 152/82 H 06/12/21 06:29 Pulse Ox 98 06/12/21 06:29 Pertinent Lab Results Pertinent Lab Results: Laboratory Tests 05/22/21 05/22/21 05/22/21 12:22 12:22 12:22 WBC 6.1 RBC 4.30 L Hgb 14.4 Hct 42.3 MCV 98.4 H MCH 33.5 H MCHC 34.0 RDW 11.4 Plt Count 159 L MPV 9.8 Immature Gran % (Auto) 0.7 H Neut % (Auto) 59.8 Lymph % (Auto) 25.8 Bartholomew % (Auto) 8.9 Eos % (Auto) 4.3 H Baso % (Auto) 0.5 Lymph # (Auto) 1.6 Bartholomew # (Auto) 0.5 Eos # (Auto) 0.3 Baso # (Auto) 0.0 Abs Immat Gran (auto) 0.04 H Absolute Neuts (auto) 3.6 Absolute Nucleated RBC 0.000 Nucleated RBC % (auto) 0.0 Sodium 139 Potassium 4.1 Chloride 105 Carbon Dioxide 24 Anion Gap 14 BUN 13 Creatinine 0.86 Estim Creat Clear Calc 98.2 Estimated GFR > 60 Random Glucose 85 Fasting Glucose Calcium 9.4 Magnesium Total Bilirubin 0.9 Direct Bilirubin 0.4 AST 26 ALT 45 H Alkaline Phosphatase 81 D Total Protein 6.8 Albumin 4.4 Triglycerides Cholesterol LDL Cholesterol, Calc HDL Cholesterol Vitamin B12 Folate TSH Free T4 Lamotrigine Ethyl Alcohol < 10 COVID-19 ([facility]) COVID-19 Clin Com 05/22/21 05/23/21 05/23/21 14:25 07:25 07:25 WBC RBC Hgb Hct MCV MCH MCHC RDW Plt Count MPV Immature Gran % (Auto) Neut % (Auto) Lymph % (Auto) Bartholomew % (Auto) Eos % (Auto) Baso % (Auto) Lymph # (Auto) Bartholomew # (Auto) Eos # (Auto) Baso # (Auto) Abs Immat Gran (auto) Absolute Neuts (auto) Absolute Nucleated RBC Nucleated RBC % (auto) Sodium 140 Potassium 4.0 Chloride 106 Carbon Dioxide 26 Anion Gap 12 BUN 16 Creatinine 0.89 Estim Creat Clear Calc 94.9 Estimated GFR > 60 Random Glucose Fasting Glucose 91 Calcium 9.4 Magnesium 2.2 Total Bilirubin 0.6 Direct Bilirubin AST 26 ALT 43 H Alkaline Phosphatase 88 Total Protein 6.5 Albumin 4.2 Triglycerides 74 Cholesterol 167 LDL Cholesterol, Calc 109 HDL Cholesterol 44 Vitamin B12 757 Folate 19.9 TSH 0.63 Free T4 0.90 Lamotrigine Ethyl Alcohol COVID-19 ([facility]) Negative COVID-19 Clin Com See Note 05/23/21 07:25 WBC RBC Hgb Hct MCV MCH MCHC RDW Plt Count MPV Immature Gran % (Auto) Neut % (Auto) Lymph % (Auto) Bartholomew % (Auto) Eos % (Auto) Baso % (Auto) Lymph # (Auto) Bartholomew # (Auto) Eos # (Auto) Baso # (Auto) Abs Immat Gran (auto) Absolute Neuts (auto) Absolute Nucleated RBC Nucleated RBC % (auto) Sodium Potassium Chloride Carbon Dioxide Anion Gap BUN Creatinine Estim Creat Clear Calc Estimated GFR Random Glucose Fasting Glucose Calcium Magnesium Total Bilirubin Direct Bilirubin AST ALT Alkaline Phosphatase Total Protein Albumin Triglycerides Cholesterol LDL Cholesterol, Calc HDL Cholesterol Vitamin B12 Folate TSH Free T4 Lamotrigine 7.2 Ethyl Alcohol COVID-19 ([facility]) COVID-19 Clin Com Airway Mallampati Class: III TM Dist: >3cm Heart: rrr Lungs: cta Assessment and Plan Final Anesthetic Review Family History of Problems with Anesthesia: No History of Problems with Anesthesia: No NPO: Yes ASA Class: III Final Preanesthetic Review: No Changes in Pt Med Stat, Meds/Allgs Chart Reviewed and Consent Obtained/Reviewed Patient Risk: Intermediate Procedure Risk: Intermediate Anesthetic Plan Anesthetic Plan: GA Disposition: Standard PACU
--- NOTE | 2021-06-12 07:13 | MHC.SHP ---
Pre-Procedural Eval Section A Date of Service: 06/12/21 Changes since office visit: Yes Patient answered all questions; No Cold of Flu in the past 2 weeks, No New Medical Problems and No Changes in Medication Section B Chief Complaint: Depression SI Allergies: Allergies Allergy/AdvReac Type Severity Reaction Status Date / Time fentanyl [FENTANYL] Allergy Intermediate unknown Verified 05/22/21 11:43 Plan I have reviewed the history and physical and performed a pertinent physical examination on my patient. No changes have occurred unless specified.
--- NOTE | 2021-06-12 07:50 | HO.ECTPROC ---
ECT Procedure Note Diagnosis/Treatment Date of Service: 06/12/21 Diagnosis: Major Depressive Disorder Previous ECT Date: 06/12/21 Current Treatment Number: 6 Treatment: Series Interval Clinical Notes: pt flat some improvement noted ECT Settings Device: THYMATRON DGx Electrode Placement: Bifrontal Program/Pulse Width: 0.25 Energy Percent: 50 Seizure Duration By EEG (in seconds): 14 By Motor Observation (in seconds): 31 Medications Administration General Anesthetic: Etomidate (16) Muscle Relaxant: Succinylcholine (100) Ancillary Medications Analgesics: Torodol - Pre ECT Anti-emetics: Zofran - Pre ECT Cardiovascular Medications: Labetolol (10 mg post) Miscillaneous Medications: Propofol (50) Airway Management Airway Management: Bag Mask Ventilation Treatment Recommendations Program/Pulse Width: 0.50 Energy Percent: 50 Notes: bifrontal 0.5 100 stimulated x 2 Pt Tolerated Procedure w/o Issue: Yes
[2021-06-12] MEDS: lamoTRIgine 25 MG TABLET 150 MG PO (09:00)
[2021-06-12] MEDS: Escitalopram Oxalate 10 MG TABLET 5 MG PO (09:07)
[2021-06-12] MEDS: Docusate Sodium 100 MG CAPSULE PO ×2 (09:07→21:58)
[2021-06-12] MEDS: ARIPiprazole 5 MG TABLET PO (09:07)
[2021-06-12] MEDS: Finasteride 5 MG TABLET PO (09:07)
[2021-06-12] MEDS: Lidocaine 4 % Patch ADH..PATCH 1 PATCH TRANSDERMA (09:08)
[2021-06-12] MEDS: Gabapentin 300 MG CAPSULE PO ×2 (09:08→15:03)
[2021-06-12] MEDS: LORazepam 0.5 MG TABLET PO ×2 (09:09→15:17)
[2021-06-12] MEDS: lisinopriL 40 MG TABLET PO (09:09)
[2021-06-12] MEDS: Hydrocortisone 2.5 % Rectal Cr 30 GM TUBE 1 APPL PR (12:48)
[2021-06-12] MEDS: polyethylene glycoL 3350 17 GM POWD.PACK PO (16:44)
[2021-06-12] MEDS: Latanoprost 0.005 % Ophth Sol 2.5 ML DROPS 1 DROP EYE-BOTH (19:48)
--- NOTE | 2021-06-12 21:28 | HO.PSYCHPN ---
Subjective Subjective Date of Service: 06/13/21 Reason For Visit: Depression SI Interim History: pt tolerated ect minimal seizure Review of Systems Review of Systems Nil new or acute Yes all other systems are reviewed and are negative Constitutional: Reports as per HPI and Reports no additional constitutional complaints Eyes: Reports as per HPI and Reports no additional eye complaints Reports system reviewed and no additional complaints, except as documented and Reports as per HPI Cardiovascular: Reports as per HPI and Reports no additional cardiovascular complaints Respiratory: Reports as per HPI and Reports no additional respiratory complaints Gastrointestinal: Reports as per HPI and Reports no additional gastrointestinal complaints Genitourinary: Reports no additional male genitourinary complaints and Reports as per HPI Musculoskeletal: Reports no additional musculoskeletal complaints, Reports as per HPI and Reports back pain ( Chronic) Reports system reviewed and no additional complaints, except as documented and Reports as per HPI Psychiatric: Reports no additional psychiatric complaints and Reports as per HPI Mental Status Exam Mental Status Exam Patient Appearance: Well Grooomed Patient Orientation: Person, Place and Time Level of Consciousness: Awake Patient Behavior: Appropriate and Good Eye Contact Behavior Comments: pt was less irritable less agitated Mood Description: Withdrawn and Appropriate Affect Description: Constricted, Anxious, Blunted and Apprehensive Patient Cognition Impaired: No Ability to Follow Directions: Good Speech Pattern: Clear and Delayed Memory Description: Intact Diagnostics Vital Signs (24Hr): Vital Signs - 24 hr 06/12/21 05:30 06/12/21 06:28 06/12/21 06:29 Temperature 97.1 F 97.1 F 97.6 F Pulse Rate 60 60 58 Respiratory Rate 18 18 16 Blood Pressure 144/73 H 144/73 H 152/82 H Pulse Oximetry 99 99 98 06/12/21 07:57 06/12/21 08:02 06/12/21 08:07 Temperature 97.3 F Pulse Rate 77 71 66 Respiratory Rate 16 17 17 Blood Pressure 178/94 H 157/83 H 161/92 H Pulse Oximetry 97 97 96 06/12/21 08:12 06/12/21 08:27 06/12/21 08:33 Temperature 97.3 F Pulse Rate 69 64 62 Respiratory Rate 19 17 16 Blood Pressure 161/83 H 170/90 H 158/87 H Pulse Oximetry 95 96 97 06/12/21 08:57 06/12/21 09:09 06/12/21 17:41 Temperature 97.3 F 97.7 F Pulse Rate 57 98 79 Respiratory Rate 20 18 Blood Pressure 182/81 H 189/74 H 127/64 Pulse Oximetry 96 98 Body Mass Index 29.5 Labs Results: 05/22/21 12:22 05/23/21 07:25 Imaging Radiology Impressions: ITS Impressions Head CT 05/24/21 15:15 IMPRESSION: 1. Status post prior right craniotomy with scattered right periventricular white matter gliosis and compensatory right ventricular dilatation.. 2. Generalized atrophy with ventricular dilatation and prominent cortical sulci and fissures and cisterns. No edema or mass effect. 3. No intracranial hemorrhage or hematoma or extra-axial fluid collection. Medications Medications Current Medications Generic Name Dose Route Start Last Admin Trade Name Freq PRN Reason Stop Dose Admin Acetaminophen 650 mg 05/22/21 17:28 06/12/21 19:48 Acetaminophen 325 Mg Tablet PO 650 mg Q6H PRN Administration Headache/Pain Mild Scale (1-3) Al Hydroxide/Mg Hydroxide 30 ml 05/22/21 17:28 Magnesium Hydrox/Alum Hydrox 30 Ml Oral.Susp PO Q6H PRN Heartburn/Nausea Albuterol Sulfate 2 puff 05/22/21 22:00 06/10/21 09:24 Albuterol Sulfate 90 Mcg 8 Gm Inhaler INHALE 2 puff Q6H PRN Administration Shortness of Breath/Wheezing Amlodipine Besylate 5 mg 05/25/21 09:00 06/12/21 06:29 Amlodipine Besylate 5 Mg Tablet PO 5 mg DAILY TAZ Administration Protocol Aripiprazole 5 mg 06/11/21 09:00 06/12/21 09:07 Aripiprazole 5 Mg Tablet PO 5 mg DAILY TAZ Administration Docusate Sodium 100 mg 05/23/21 09:00 06/12/21 09:07 Docusate Sodium 100 Mg Capsule PO 100 mg BID TAZ Administration Escitalopram Oxalate 5 mg 06/08/21 09:00 06/12/21 09:07 Escitalopram Oxalate 10 Mg Tablet PO 5 mg DAILY TAZ Administration Finasteride 5 mg 05/23/21 09:00 06/12/21 09:07 Finasteride 5 Mg Tablet PO 5 mg DAILY TAZ Administration Gabapentin 300 mg 06/09/21 21:00 06/12/21 15:03 Gabapentin 300 Mg Capsule PO 300 mg TID TAZ Administration Hydrocortisone 1 appl 06/09/21 10:03 06/12/21 12:48 Hydrocortisone 2.5 % Rectal Cr 30 Gm Tube NM 1 appl 6XD PRN Administration after each bowel movement Ibuprofen 400 mg 05/27/21 09:30 06/11/21 14:15 Ibuprofen 400 Mg Tablet PO 400 mg Q6H PRN Administration Pain, Moderate (Pain Scale 4-6 Lamotrigine 150 mg 06/08/21 09:00 06/12/21 09:00 Lamotrigine 25 Mg Tablet PO 150 mg DAILY TAZ Administration Latanoprost 1 drop 05/27/21 21:00 06/12/21 19:48 Latanoprost 0.005 % Ophth No 2.5 Ml Drops EYE-BOTH 1 drop BEDTIME TAZ Administration Lidocaine 1 patch 05/30/21 09:00 06/12/21 09:08 Lidocaine 4 % Patch Adh..Patch TRANSDERMA 1 patch DAILY TAZ Administration Protocol Lisinopril 40 mg 06/04/21 09:00 06/12/21 09:09 Lisinopril 40 Mg Tablet PO 40 mg DAILY TAZ Administration Protocol Lorazepam 1 mg 06/10/21 21:00 06/11/21 20:37 Lorazepam 1 Mg Tablet PO Not Given BEDTIME TAZ Lorazepam 0.5 mg 06/11/21 09:00 06/12/21 09:09 Lorazepam 0.5 Mg Tablet PO 0.5 mg DAILY TAZ Administration Lorazepam 0.5 mg 06/11/21 10:39 06/12/21 15:17 Lorazepam 0.5 Mg Tablet PO 0.5 mg Q6H PRN Administration anxiety/restlessness Magnesium Hydroxide 30 ml 05/22/21 17:28 06/05/21 14:39 Milk Of Magnesia 30 Ml Oral.Susp PO 30 ml DAILY PRN Administration Constipation Melatonin 6 mg 05/28/21 21:00 06/11/21 21:25 Melatonin 3 Mg Tablet PO 6 mg BEDTIME TAZ Administration Mirtazapine 30 mg 06/10/21 21:00 06/11/21 21:25 Mirtazapine 15 Mg Tablet PO 30 mg BEDTIME TAZ Administration Multivitamins/Minerals 1 tab 05/23/21 09:00 06/12/21 09:09 Multivitamin With Minerals Tablet PO 1 tab DAILY TAZ Administration Ondansetron HCl 4 mg 05/28/21 13:46 Ondansetron Odt 4 Mg Tab.Rapdis TRANSLINGU Q8H PRN Nausea and Vomiting Polyethylene Glycol 17 gm 05/25/21 17:00 06/12/21 16:44 Polyethylene Glycol 3350 17 Gm Powd.Pack PO 17 gm DAILY@1700 TAZ Administration Sodium Biphosphate/Sodium Phosphate 118 ml 05/22/21 21:38 Sodium Phosphate,[place]-Dibasic 133 Ml Enema NM DAILY PRN Constipation Trazodone HCl 300 mg 05/22/21 22:00 06/11/21 21:25 Trazodone Hcl 100 Mg Tablet PO 300 mg BEDTIME TAZ Administration Allergies Allergies Allergy/AdvReac Type Severity Reaction Status Date / Time fentanyl [FENTANYL] Allergy Intermediate unknown Verified 05/22/21 11:43 Assessment & Plan Assessment & Plan (1) HTN (hypertension): Status: Acute Code(s): I10 - Essential (primary) hypertension (2) Major depressive disorder, recurrent severe without psychotic features: Status: Acute Code(s): F33.2 - Major depressive disorder, recurrent severe without psychotic features Assessment and Plan: cont ect abilify mirtazapine (3) Cognitive and neurobehavioral dysfunction following brain injury: Status: Acute Code(s): G31.89 - Other specified degenerative diseases of nervous system; F09 - Unspecified mental disorder due to known physiological condition; S06.9X9S - Unspecified intracranial injury with loss of consciousness of unspecified duration, sequela Assessment and Plan: Patient more irritability dysphoria unclear if related to other patient on the unit to any withdrawal symptoms from coming off gabapentin and Lamictal gabapentin 300 t.i.d. Lamictal increased to 150 taper Lexapro taper Abilify consider Seroquel Ativan restarted ECT for tomorrow monitor response Looking to go to a family structured setting supported by DDS patient aware this may take at least 6 months CONT PLAN OF CARE coordinate outpatient treatment including individual counseling more social and cognitive engagement nicolasa Greater than 50% of the session was spent on counseling and/or coordination of care Reason for contiued inpatient stay Substantial Risk for: inability to function and rapid decompensation
[2021-06-12] MEDS: LORazepam 1 MG TABLET PO (21:57)
[2021-06-12] MEDS: traZODone HCL 100 MG TABLET 300 MG PO (21:57)
[2021-06-12] MEDS: Melatonin 3 MG TABLET 6 MG PO (21:58)
[2021-06-12] MEDS: Mirtazapine 15 MG TABLET 30 MG PO (21:58)
[2021-06-13 06:00] VITALS: BP 144/79; PULSE 58; RESP 18; TEMP 36.2; O2SAT 98
[2021-06-13 09:02] VITALS: BP 143/69; PULSE 74
[2021-06-13] MEDS: lisinopriL 40 MG TABLET PO (09:02)
[2021-06-13] MEDS: lamoTRIgine 25 MG TABLET 150 MG PO (09:04)
[2021-06-13 09:06] VITALS: BP 143/69; PULSE 74
[2021-06-13] MEDS: Docusate Sodium 100 MG CAPSULE PO ×2 (09:06→21:31)
[2021-06-13] MEDS: amLODIPine Besylate 2.5 MG TABLET 7.5 MG PO (09:06)
[2021-06-13] MEDS: LORazepam 0.5 MG TABLET PO (09:07)
[2021-06-13] MEDS: ARIPiprazole 5 MG TABLET PO (09:07)
[2021-06-13] MEDS: Escitalopram Oxalate 10 MG TABLET 5 MG PO (09:07)
[2021-06-13] MEDS: Finasteride 5 MG TABLET PO (09:09)
[2021-06-13] MEDS: Gabapentin 300 MG CAPSULE PO ×2 (09:09→16:53)
[2021-06-13] MEDS: Lidocaine 4 % Patch ADH..PATCH 1 PATCH TRANSDERMA (11:19)
[2021-06-13] MEDS: Acetaminophen 325 MG TABLET 650 MG PO (11:20)
[2021-06-13] MEDS: Ibuprofen 400 MG TABLET PO (11:20)
[2021-06-13] MEDS: Hydrocortisone 2.5 % Rectal Cr 30 GM TUBE 1 APPL PR (11:25)
[2021-06-13] MEDS: polyethylene glycoL 3350 17 GM POWD.PACK PO (16:54)
[2021-06-13 18:00] VITALS: BP 169/79; PULSE 61; RESP 18; TEMP 36.7; O2SAT 97
--- NOTE | 2021-06-13 21:02 | P.PNPSI_ITS ---
Subjective Subjective Date of Service: 06/13/21 Reason For Visit: Depression SI Interim History: Patient is more patient is feeling more triggered reactive with other patients. Was able to discuss increasing Abilify Lexapro back up in case he is having a reaction to lower dose Review of Systems Review of Systems Nil new or acute Yes all other systems are reviewed and are negative Constitutional: Reports as per HPI and Reports no additional constitutional complaints Eyes: Reports as per HPI and Reports no additional eye complaints Reports system reviewed and no additional complaints, except as documented and Reports as per HPI Cardiovascular: Reports as per HPI and Reports no additional cardiovascular complaints Respiratory: Reports as per HPI and Reports no additional respiratory complaints Gastrointestinal: Reports as per HPI and Reports no additional gastrointestinal complaints Genitourinary: Reports no additional male genitourinary complaints and Reports as per HPI Musculoskeletal: Reports no additional musculoskeletal complaints, Reports as per HPI and Reports back pain ( Chronic) Reports system reviewed and no additional complaints, except as documented and Reports as per HPI Psychiatric: Reports no additional psychiatric complaints and Reports as per HPI Mental Status Exam Mental Status Exam Narrative: Patient Appearance: Well Grooomed Patient Orientation: Person, Place and Time Level of Consciousness: Awake Patient Behavior: Appropriate and Good Eye Contact Behavior Comments: pt irritable triggered by another pt Mood Description: Withdrawn and Appropriate Affect Description: Constricted, Anxious, Blunted and Apprehensive Patient Cognition Impaired: No Ability to Follow Directions: Good Speech Pattern: Clear and Delayed Memory Description: Intact Diagnostics Vital Signs (24Hr): Vital Signs - 24 hr 06/13/21 06:00 06/13/21 09:02 06/13/21 09:06 Temperature 97.2 F Pulse Rate 58 74 74 Respiratory Rate 18 Blood Pressure 144/79 H 143/69 H 143/69 H Pulse Oximetry 98 06/13/21 18:00 Temperature 98.1 F Pulse Rate 61 Respiratory Rate 18 Blood Pressure 169/79 H Pulse Oximetry 97 Body Mass Index 29.5 Labs Results: 05/22/21 12:22 05/23/21 07:25 Imaging Radiology Impressions: ITS Impressions Head CT 05/24/21 15:15 IMPRESSION: 1. Status post prior right craniotomy with scattered right periventricular white matter gliosis and compensatory right ventricular dilatation.. 2. Generalized atrophy with ventricular dilatation and prominent cortical sulci and fissures and cisterns. No edema or mass effect. 3. No intracranial hemorrhage or hematoma or extra-axial fluid collection. Medications Medications Current Medications Generic Name Dose Route Start Last Admin Trade Name Freq PRN Reason Stop Dose Admin Acetaminophen 650 mg 05/22/21 17:28 06/13/21 11:20 Acetaminophen 325 Mg Tablet PO 650 mg Q6H PRN Administration Headache/Pain Mild Scale (1-3) Al Hydroxide/Mg Hydroxide 30 ml 05/22/21 17:28 Magnesium Hydrox/Alum Hydrox 30 Ml Oral.Susp PO Q6H PRN Heartburn/Nausea Albuterol Sulfate 2 puff 05/22/21 22:00 06/10/21 09:24 Albuterol Sulfate 90 Mcg 8 Gm Inhaler INHALE 2 puff Q6H PRN Administration Shortness of Breath/Wheezing Amlodipine Besylate 7.5 mg 06/13/21 09:00 06/13/21 09:06 Amlodipine Besylate 2.5 Mg Tablet PO 7.5 mg DAILY TAZ Administration Protocol Aripiprazole 10 mg 06/14/21 09:00 Aripiprazole 10 Mg Tablet PO DAILY TAZ Docusate Sodium 100 mg 05/23/21 09:00 06/13/21 09:06 Docusate Sodium 100 Mg Capsule PO 100 mg BID TAZ Administration Escitalopram Oxalate 10 mg 06/14/21 09:00 Escitalopram Oxalate 10 Mg Tablet PO DAILY TAZ Finasteride 5 mg 05/23/21 09:00 06/13/21 09:09 Finasteride 5 Mg Tablet PO 5 mg DAILY TAZ Administration Gabapentin 300 mg 06/13/21 08:30 06/13/21 16:53 Gabapentin 300 Mg Capsule PO 300 mg BID@0830,1630 TAZ Administration Hydrocortisone 1 appl 06/09/21 10:03 06/13/21 11:25 Hydrocortisone 2.5 % Rectal Cr 30 Gm Tube OR 1 appl 6XD PRN Administration after each bowel movement Ibuprofen 400 mg 05/27/21 09:30 06/13/21 11:20 Ibuprofen 400 Mg Tablet PO 400 mg Q6H PRN Administration Pain, Moderate (Pain Scale 4-6 Lamotrigine 150 mg 06/08/21 09:00 06/13/21 09:04 Lamotrigine 25 Mg Tablet PO 150 mg DAILY TAZ Administration Latanoprost 1 drop 05/27/21 21:00 06/12/21 19:48 Latanoprost 0.005 % Ophth No 2.5 Ml Drops EYE-BOTH 1 drop BEDTIME TAZ Administration Lidocaine 1 patch 05/30/21 09:00 06/13/21 11:19 Lidocaine 4 % Patch Adh..Patch TRANSDERMA 1 patch DAILY TAZ Administration Protocol Lisinopril 40 mg 06/04/21 09:00 06/13/21 09:02 Lisinopril 40 Mg Tablet PO 40 mg DAILY TAZ Administration Protocol Lorazepam 1 mg 06/10/21 21:00 06/12/21 21:57 Lorazepam 1 Mg Tablet PO 1 mg BEDTIME TAZ Administration Lorazepam 0.5 mg 06/11/21 09:00 06/13/21 09:07 Lorazepam 0.5 Mg Tablet PO 0.5 mg DAILY TAZ Administration Lorazepam 0.5 mg 06/11/21 10:39 06/12/21 15:17 Lorazepam 0.5 Mg Tablet PO 0.5 mg Q6H PRN Administration anxiety/restlessness Magnesium Hydroxide 30 ml 05/22/21 17:28 06/05/21 14:39 Milk Of Magnesia 30 Ml Oral.Susp PO 30 ml DAILY PRN Administration Constipation Melatonin 6 mg 05/28/21 21:00 06/12/21 21:58 Melatonin 3 Mg Tablet PO 6 mg BEDTIME TAZ Administration Mirtazapine 30 mg 06/10/21 21:00 06/12/21 21:58 Mirtazapine 15 Mg Tablet PO 30 mg BEDTIME TAZ Administration Multivitamins/Minerals 1 tab 05/23/21 09:00 06/13/21 09:07 Multivitamin With Minerals Tablet PO 1 tab DAILY TAZ Administration Ondansetron HCl 4 mg 05/28/21 13:46 Ondansetron Odt 4 Mg Tab.Rapdis TRANSLINGU Q8H PRN Nausea and Vomiting Polyethylene Glycol 17 gm 05/25/21 17:00 06/13/21 16:54 Polyethylene Glycol 3350 17 Gm Powd.Pack PO 17 gm DAILY@1700 TAZ Administration Sodium Biphosphate/Sodium Phosphate 118 ml 05/22/21 21:38 Sodium Phosphate,[place]-Dibasic 133 Ml Enema [place] DAILY PRN Constipation Trazodone HCl 300 mg 05/22/21 22:00 06/12/21 21:57 Trazodone Hcl 100 Mg Tablet PO 300 mg BEDTIME TAZ Administration Allergies Allergies Allergy/AdvReac Type Severity Reaction Status Date / Time fentanyl [FENTANYL] Allergy Intermediate unknown Verified 05/22/21 11:43 Assessment & Plan Assessment & Plan (1) Major depressive disorder, recurrent severe without psychotic features: Status: Acute Code(s): F33.2 - Major depressive disorder, recurrent severe without psychotic features Assessment and Plan: cont ect abilify inc mirtazapine increase Lexapro back to therapeutic doses cont ect will (2) Cognitive and neurobehavioral dysfunction following brain injury: Status: Acute Code(s): G31.89 - Other specified degenerative diseases of nervous system; F09 - Unspecified mental disorder due to known physiological condition; S06.9X9S - Unspecified intracranial injury with loss of consciousness of unspecified d uration, sequela Assessment and Plan: CONTINUE LAMICTAL ABILIFY ADD SEROQUEL P.R.N. FOR AGITATION (3) HTN (hypertension): Status: Acute Code(s): I10 - Essential (primary) hypertension Assessment and Plan: Patient more irritability dysphoria unclear if related to other patient on the unit to any withdrawal symptoms from coming off gabapentin and Lamictal gabapentin 300 t.i.d. Lamictal increased to 150 taper Lexapro taper Abilify consider Seroquel Ativan restarted ECT for tomorrow monitor response Looking to go to a family structured setting supported by DDS patient aware this may take at least 6 months CONT PLAN OF CARE coordinate outpatient treatment including individual counseling more social and cognitive engagement nicolasa Greater than 50% of the session was spent on counseling and/or coordination of care Reason for contiued inpatient stay Substantial Risk for: harm to self, inability to function and rapid decompensation
[2021-06-13] MEDS: Melatonin 3 MG TABLET 6 MG PO (21:30)
[2021-06-13] MEDS: Mirtazapine 15 MG TABLET 30 MG PO (21:30)
[2021-06-13] MEDS: traZODone HCL 100 MG TABLET 300 MG PO (21:30)
[2021-06-13] MEDS: LORazepam 1 MG TABLET PO (21:31)
[2021-06-13] MEDS: Latanoprost 0.005 % Ophth Sol 2.5 ML DROPS 1 DROP EYE-BOTH (21:39)
[2021-06-14] VITALS (9 sets, daily range): BP systolic 135–168; BP diastolic 60–93; PULSE 64–97; RESP 14–23; TEMP 36.2–36.8; O2SAT 95–99
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
--- NOTE | 2021-06-14 07:28 | MHC.SHP ---
Pre-Procedural Eval Section A Date of Service: 06/14/21 The patient is an INPATIENT: Yes Changes since office visit: Yes Changes in Medication and Yes Patient answered all questions; No Cold of Flu in the past 2 weeks and No New Medical Problems The History & Physical has been completed within 30 days and I have reviewed it.: Yes Section B Chief Complaint: Depression SI Allergies: Allergies Allergy/AdvReac Type Severity Reaction Status Date / Time fentanyl [FENTANYL] Allergy Intermediate unknown Verified 05/22/21 11:43 Plan I have reviewed the history and physical and performed a pertinent physical examination on my patient. No changes have occurred unless specified.
--- NOTE | 2021-06-14 07:31 | HO.ANESPROP2 ---
HPI - Anesthesia Eval Consult details Narrative: 65 yo male patient for ECT PMFSH Active Problems Active Problems: All Active Problems (Updated 05/24/21 @ 23:38 by Addy Haskins MD) Major depressive disorder, recurrent severe without psychotic features (Acute) Cognitive and neurobehavioral dysfunction following brain injury (Acute) HTN (hypertension) (Acute) Past Medical History Medical History Alcohol use disorder, severe, in sustained remission Cognitive and neurobehavioral dysfunction following brain injury Hernia HTN (hypertension) Major depressive disorder, recurrent Major depressive disorder, recurrent severe without psychotic features Family History Family history of problems with anesthesia: No Surgical History Surgical History H/O brain surgery History of hip replacement S/P cholecystectomy History of Problems with Anesthesia: No Social History Social History Household Members: Other Household Members Other:: 3 housemates in snf Housing: Other Housing Other:: [facility] Patient Tobacco Use Status: Never used Tobacco Advance Directives Date on File: 05/27/19 service: No Sexual orientation: Straight/Heterosexual Meds Allergies Allergy/AdvReac Type Severity Reaction Status Date / Time fentanyl [FENTANYL] Allergy Intermediate unknown Verified 05/22/21 11:43 Active Medications: Current Medications Generic Name Dose Route Start Last Admin Trade Name Freq PRN Reason Stop Dose Admin Acetaminophen 650 mg 05/22/21 17:28 06/13/21 11:20 Acetaminophen 325 Mg Tablet PO 650 mg Q6H PRN Administration Headache/Pain Mild Scale (1-3) Al Hydroxide/Mg Hydroxide 30 ml 05/22/21 17:28 Magnesium Hydrox/Alum Hydrox 30 Ml Oral.Susp PO Q6H PRN Heartburn/Nausea Albuterol Sulfate 2 puff 05/22/21 22:00 06/10/21 09:24 Albuterol Sulfate 90 Mcg 8 Gm Inhaler INHALE 2 puff Q6H PRN Administration Shortness of Breath/Wheezing Amlodipine Besylate 7.5 mg 06/13/21 09:00 06/13/21 09:06 Amlodipine Besylate 2.5 Mg Tablet PO 7.5 mg DAILY TAZ Administration Protocol Aripiprazole 10 mg 06/14/21 09:00 Aripiprazole 10 Mg Tablet PO DAILY TAZ Docusate Sodium 100 mg 05/23/21 09:00 06/13/21 21:31 Docusate Sodium 100 Mg Capsule PO 100 mg BID TAZ Administration Escitalopram Oxalate 10 mg 06/14/21 09:00 Escitalopram Oxalate 10 Mg Tablet PO DAILY TAZ Finasteride 5 mg 05/23/21 09:00 06/13/21 09:09 Finasteride 5 Mg Tablet PO 5 mg DAILY TAZ Administration Gabapentin 300 mg 06/13/21 08:30 06/13/21 16:53 Gabapentin 300 Mg Capsule PO 300 mg BID@0830,1630 TAZ Administration Hydrocortisone 1 appl 06/09/21 10:03 06/13/21 11:25 Hydrocortisone 2.5 % Rectal Cr 30 Gm Tube MS 1 appl 6XD PRN Administration after each bowel movement Lactated Ringer's 1,000 mls @ 50 mls/hr 06/14/21 07:30 Lr IVCONT .Q20H TAZ Ibuprofen 400 mg 05/27/21 09:30 06/13/21 11:20 Ibuprofen 400 Mg Tablet PO 400 mg Q6H PRN Administration Pain, Moderate (Pain Scale 4-6 Lamotrigine 150 mg 06/08/21 09:00 06/13/21 09:04 Lamotrigine 25 Mg Tablet PO 150 mg DAILY TAZ Administration Latanoprost 1 drop 05/27/21 21:00 06/13/21 21:39 Latanoprost 0.005 % Ophth No 2.5 Ml Drops EYE-BOTH 1 drop BEDTIME TAZ Administration Lidocaine 1 patch 05/30/21 09:00 06/13/21 11:19 Lidocaine 4 % Patch Adh..Patch TRANSDERMA 1 patch DAILY TAZ Administration Protocol Lisinopril 40 mg 06/04/21 09:00 06/13/21 09:02 Lisinopril 40 Mg Tablet PO 40 mg DAILY TAZ Administration Protocol Lorazepam 1 mg 06/10/21 21:00 06/13/21 21:31 Lorazepam 1 Mg Tablet PO 1 mg BEDTIME TAZ Administration Lorazepam 0.5 mg 06/11/21 09:00 06/13/21 09:07 Lorazepam 0.5 Mg Tablet PO 0.5 mg DAILY TAZ Administration Lorazepam 0.5 mg 06/11/21 10:39 06/12/21 15:17 Lorazepam 0.5 Mg Tablet PO 0.5 mg Q6H PRN Administration anxiety/restlessness Magnesium Hydroxide 30 ml 05/22/21 17:28 06/05/21 14:39 Milk Of Magnesia 30 Ml Oral.Susp PO 30 ml DAILY PRN Administration Constipation Melatonin 6 mg 05/28/21 21:00 06/13/21 21:30 Melatonin 3 Mg Tablet PO 6 mg BEDTIME TAZ Administration Mirtazapine 30 mg 06/10/21 21:00 06/13/21 21:30 Mirtazapine 15 Mg Tablet PO 30 mg BEDTIME TAZ Administration Multivitamins/Minerals 1 tab 05/23/21 09:00 06/13/21 09:07 Multivitamin With Minerals Tablet PO 1 tab DAILY TAZ Administration Ondansetron HCl 4 mg 05/28/21 13:46 Ondansetron Odt 4 Mg Tab.Rapdis TRANSLINGU Q8H PRN Nausea and Vomiting Polyethylene Glycol 17 gm 05/25/21 17:00 06/13/21 16:54 Polyethylene Glycol 3350 17 Gm Powd.Pack PO 17 gm DAILY@1700 TAZ Administration Quetiapine Fumarate 25 mg 06/13/21 21:22 Quetiapine Fumarate 25 Mg Tablet PO Q4H PRN anxiety/restlessness Sodium Biphosphate/Sodium Phosphate 118 ml 05/22/21 21:38 Sodium Phosphate,[place]-Dibasic 133 Ml Enema MS DAILY PRN Constipation Trazodone HCl 300 mg 05/22/21 22:00 06/13/21 21:30 Trazodone Hcl 100 Mg Tablet PO 300 mg BEDTIME TAZ Administration Home Medications Medication Instructions Recorded Confirmed Last Taken Type Tylenol 650 mg PO Q6-8H PRN 05/22/21 05/22/21 Unknown History Tylenol Arthritis Pain 650 mg PO DAILY 05/22/21 05/22/21 Unknown History albuterol 90 mcg/actuation aerosol See Rx Instructions .ROUTE .COMPLEX 05/22/21 05/22/21 Unknown History inhaler amantadine HCl 100 mg tablet 1 tab PO BID 05/22/21 05/22/21 Unknown History aripiprazole 10 mg tablet 1 tab PO DAILY 05/22/21 05/22/21 Unknown History clotrimazole 1 % topical solution See Rx Instructions .ROUTE 05/22/21 05/22/21 Unknown History .COMPLEX PRN dextromethorphan-guaifenesin 10 10 ml PO Q6-8H PRN 05/22/21 05/22/21 Unknown History mg-200 mg/5 mL oral liquid docusate sodium 100 mg capsule 1 cap PO BID 05/22/21 05/22/21 Unknown History docusate sodium 100 mg capsule See Rx Instructions .ROUTE 05/22/21 05/22/21 Unknown History .COMPLEX PRN escitalopram oxalate 20 mg tablet 1 tab PO DAILY 05/22/21 05/22/21 Unknown History finasteride 5 mg tablet 1 tab PO DAILY 05/22/21 05/22/21 Unknown History gabapentin enacarbil 600 mg 1 tab PO BID 05/22/21 05/22/21 Unknown History tablet,extended release ([facility]ant ER) glycerin 1 drp OPHTHALMIC (EYE) Q1-2H PRN 05/22/21 05/22/21 Unknown History lamotrigine 150 mg tablet 1 tab PO DAILY 05/22/21 05/22/21 Unknown History lamotrigine 200 mg tablet 1 tab PO DAILY 05/22/21 05/22/21 Unknown History latanoprost 0.005 % eye drops 1 drp OPHTHALMIC (EYE) DAILY 05/22/21 05/22/21 Unknown History lisinopril 10 mg tablet 1 tab PO DAILY 05/22/21 05/22/21 Unknown History lorazepam 0.5 mg tablet 1 tab PO DAILY 05/22/21 05/22/21 Unknown History lorazepam 0.5 mg tablet 1 tab PO DAILY PRN 05/22/21 05/22/21 Unknown History lorazepam 1 mg tablet 1 tab PO DAILY 05/22/21 05/22/21 Unknown History magnesium hydroxide 400 mg/5 mL 2,400 mg PO PRN 05/22/21 Unknown History oral suspension (Milk of Magnesia) melatonin 5 mg tablet 5 mg PO BEDTIME 05/22/21 05/22/21 Unknown History ykngxurpgjqc-qvenixrb-evlhjk tablet 1 tab PO DAILY 05/22/21 05/22/21 Unknown History polyethylene glycol 3350 17 17 g PO DAILY 05/22/21 05/22/21 Unknown History gram/dose oral powder polyethylene glycol 3350 17 17 g PO DAILY PRN 05/22/21 05/22/21 Unknown History gram/dose oral powder psyllium husk 0.4 gram capsule 0.4 g PO DAILY 05/22/21 05/22/21 Unknown History (Metamucil) sodium phosphates 19 gram-7 118 ml MS DAILY PRN 05/22/21 05/22/21 Unknown History gram/118 mL enema (Fleet Enema) trazodone 150 mg tablet 2 tab PO BEDTIME 05/22/21 05/22/21 Unknown History Exam Exam Date and Time: June 14, 2021730 Height,Weight and Vital Signs: Height 6 ft 2 in Weight 104.326 kg Last Vital Signs Temp 97.7 F 06/14/21 05:55 Pulse 75 06/14/21 05:55 Resp 18 06/14/21 05:55 BP 135/60 06/14/21 05:55 Pulse Ox 98 06/14/21 05:55 Pertinent Lab Results Pertinent Lab Results: Laboratory Tests 05/22/21 05/22/21 05/22/21 12:22 12:22 12:22 WBC 6.1 RBC 4.30 L Hgb 14.4 Hct 42.3 MCV 98.4 H MCH 33.5 H MCHC 34.0 RDW 11.4 Plt Count 159 L MPV 9.8 Immature Gran % (Auto) 0.7 H Neut % (Auto) 59.8 Lymph % (Auto) 25.8 [place] % (Auto) 8.9 Eos % (Auto) 4.3 H Baso % (Auto) 0.5 Lymph # (Auto) 1.6 [place] # (Auto) 0.5 Eos # (Auto) 0.3 Baso # (Auto) 0.0 Abs Immat Gran (auto) 0.04 H Absolute Neuts (auto) 3.6 Absolute Nucleated RBC 0.000 Nucleated RBC % (auto) 0.0 Sodium 139 Potassium 4.1 Chloride 105 Carbon Dioxide 24 Anion Gap 14 BUN 13 Creatinine 0.86 Estim Creat Clear Calc 98.2 Estimated GFR > 60 Random Glucose 85 Fasting Glucose Calcium 9.4 Magnesium Total Bilirubin 0.9 Direct Bilirubin 0.4 AST 26 ALT 45 H Alkaline Phosphatase 81 D Total Protein 6.8 Albumin 4.4 Triglycerides Cholesterol LDL Cholesterol, Calc HDL Cholesterol Vitamin B12 Folate TSH Free T4 Lamotrigine Ethyl Alcohol < 10 COVID-19 ([facility]) COVID-19 Clin Com 05/22/21 05/23/21 05/23/21 14:25 07:25 07:25 WBC RBC Hgb Hct MCV MCH MCHC RDW Plt Count MPV Immature Gran % (Auto) Neut % (Auto) Lymph % (Auto) [place] % (Auto) Eos % (Auto) Baso % (Auto) Lymph # (Auto) [place] # (Auto) Eos # (Auto) Baso # (Auto) Abs Immat Gran (auto) Absolute Neuts (auto) Absolute Nucleated RBC Nucleated RBC % (auto) Sodium 140 Potassium 4.0 Chloride 106 Carbon Dioxide 26 Anion Gap 12 BUN 16 Creatinine 0.89 Estim Creat Clear Calc 94.9 Estimated GFR > 60 Random Glucose Fasting Glucose 91 Calcium 9.4 Magnesium 2.2 Total Bilirubin 0.6 Direct Bilirubin AST 26 ALT 43 H Alkaline Phosphatase 88 Total Protein 6.5 Albumin 4.2 Triglycerides 74 Cholesterol 167 LDL Cholesterol, Calc 109 HDL Cholesterol 44 Vitamin B12 757 Folate 19.9 TSH 0.63 Free T4 0.90 Lamotrigine Ethyl Alcohol COVID-19 ([facility]) Negative COVID-19 Clin Com See Note 05/23/21 07:25 WBC RBC Hgb Hct MCV MCH MCHC RDW Plt Count MPV Immature Gran % (Auto) Neut % (Auto) Lymph % (Auto) [place] % (Auto) Eos % (Auto) Baso % (Auto) Lymph # (Auto) [place] # (Auto) Eos # (Auto) Baso # (Auto) Abs Immat Gran (auto) Absolute Neuts (auto) Absolute Nucleated RBC Nucleated RBC % (auto) Sodium Potassium Chloride Carbon Dioxide Anion Gap BUN Creatinine Estim Creat Clear Calc Estimated GFR Random Glucose Fasting Glucose Calcium Magnesium Total Bilirubin Direct Bilirubin AST ALT Alkaline Phosphatase Total Protein Albumin Triglycerides Cholesterol LDL Cholesterol, Calc HDL Cholesterol Vitamin B12 Folate TSH Free T4 Lamotrigine 7.2 Ethyl Alcohol COVID-19 ([facility]) COVID-19 Clin Com Airway Mallampati Class: III TM Dist: >3cm Neck ROM: Full Loose/Missing/Broken Teeth: No Heart: RRR Lungs: CTAB Assessment and Plan Assessment Anesthesia Assessment: Anesthesia Plan Discussed and Chart Reviewed Final Anesthetic Review Family History of Problems with Anesthesia: No History of Problems with Anesthesia: No NPO: Yes ASA Class: III Final Preanesthetic Review: No Changes in Pt Med Stat, Meds/Allgs Chart Reviewed, Consent Obtained/Reviewed and Anes Risks/Benef Reviewed Patient Risk: Intermediate Procedure Risk: Intermediate Anesthetic Plan Anesthetic Plan: GA Disposition: Standard PACU and Inp. Admit - Standard Bed
[2021-06-14] MEDS: Gabapentin 300 MG CAPSULE PO ×2 (10:42→16:29)
[2021-06-14] MEDS: ARIPiprazole 10 MG TABLET PO (10:42)
[2021-06-14] MEDS: lisinopriL 40 MG TABLET PO (10:42)
[2021-06-14] MEDS: LORazepam 0.5 MG TABLET PO ×2 (10:42→16:28)
[2021-06-14] MEDS: Finasteride 5 MG TABLET PO (10:42)
[2021-06-14] MEDS: Docusate Sodium 100 MG CAPSULE PO ×2 (10:43→22:00)
[2021-06-14] MEDS: lamoTRIgine 25 MG TABLET 150 MG PO (10:43)
[2021-06-14] MEDS: amLODIPine Besylate 2.5 MG TABLET 7.5 MG PO (10:43)
[2021-06-14] MEDS: Escitalopram Oxalate 10 MG TABLET PO (10:44)
[2021-06-14] MEDS: Clotrimazole 1 % Cream 15 GM TUBE 1 APPL TOPICAL ×3 (16:28→22:01)
[2021-06-14] MEDS: Ibuprofen 400 MG TABLET PO (16:28)
[2021-06-14] MEDS: Mupirocin 2 % Oint 22 GM TUBE 1 APPL TOPICAL ×2 (16:28→22:01)
[2021-06-14] MEDS: polyethylene glycoL 3350 17 GM POWD.PACK PO (16:29)
[2021-06-14] MEDS: traZODone HCL 100 MG TABLET 300 MG PO (21:59)
[2021-06-14] MEDS: LORazepam 1 MG TABLET PO (22:00)
[2021-06-14] MEDS: Mirtazapine 15 MG TABLET 30 MG PO (22:00)
[2021-06-14] MEDS: Melatonin 3 MG TABLET 6 MG PO (22:00)
[2021-06-14] MEDS: Latanoprost 0.005 % Ophth Sol 2.5 ML DROPS 1 DROP EYE-BOTH (22:01)
--- NOTE | 2021-06-14 23:58 | HO.ECTPROC ---
ECT Procedure Note Diagnosis/Treatment Date of Service: 06/14/21 Diagnosis: Major Depressive Disorder Previous ECT Date: 06/12/21 Current Treatment Number: 7 Treatment: Series Interval Clinical Notes: pt flat some improvement noted less labile ECT Settings Device: THYMATRON DGx Electrode Placement: Bifrontal Program/Pulse Width: 0.50 Energy Percent: 100 Seizure Duration By EEG (in seconds): 77 Medications Administration General Anesthetic: Etomidate (16) Muscle Relaxant: Succinylcholine (100) Ancillary Medications Analgesics: Torodol - Pre ECT Anti-emetics: Zofran - Pre ECT Cardiovascular Medications: Labetolol (10 mg post) Miscillaneous Medications: Propofol (50) and Flumazenil Airway Management Airway Management: Bag Mask Ventilation Treatment Recommendations No Changes Recommended: No change Program/Pulse Width: 0.50 Notes: Patient did better with today's ECT flumazenil given Pt Tolerated Procedure w/o Issue: Yes
--- NOTE | 2021-06-14 23:58 | HO.PSYCHPN ---
Subjective Subjective Date of Service: 06/14/21 Reason For Visit: Depression SI Subjective Notes: Conditional Voluntary Guardianship: No Medical Problems Affecting Mental Status: Yes Interim History: Patient has periods of arrests ability irritability question being triggered by milieu Medication Compliance: Yes Review of Systems Review of Systems Nil new or acute Yes all other systems are reviewed and are negative Constitutional: Reports as per HPI and Reports no additional constitutional complaints Eyes: Reports as per HPI and Reports no additional eye complaints Reports system reviewed and no additional complaints, except as documented and Reports as per HPI Cardiovascular: Reports as per HPI and Reports no additional cardiovascular complaints Respiratory: Reports as per HPI and Reports no additional respiratory complaints Gastrointestinal: Reports as per HPI and Reports no additional gastrointestinal complaints Genitourinary: Reports no additional male genitourinary complaints and Reports as per HPI Musculoskeletal: Reports no additional musculoskeletal complaints, Reports as per HPI and Reports back pain ( Chronic) Reports system reviewed and no additional complaints, except as documented and Reports as per HPI Psychiatric: Reports no additional psychiatric complaints and Reports as per HPI Mental Status Exam Mental Status Exam Narrative: Has had periods of reactivity irritability Patient Appearance: Well Grooomed Patient Orientation: Person, Place and Time Level of Consciousness: Awake Patient Behavior: Appropriate and Good Eye Contact Behavior Comments: pt irritable triggered by another pt Mood Description: Withdrawn, Appropriate, Flat and Apprehensive Affect Description: Constricted, Anxious, Blunted and Apprehensive Patient Cognition Impaired: No Ability to Follow Directions: Good Speech Pattern: Clear and Delayed Memory Description: Intact Thought Process: Intact Thought Content: positive for Slowed Thinking, positive for Suicidal Ideation (Denies active self-harm) and negative for Homicidal Ideation Diagnostics Vital Signs (24Hr): Vital Signs - 24 hr 06/14/21 05:55 06/14/21 07:28 06/14/21 08:45 Temperature 97.7 F 97.2 F 97.8 F Pulse Rate 75 67 64 Respiratory Rate 18 20 23 H Blood Pressure 135/60 162/87 H 160/93 H Pulse Oximetry 98 99 96 06/14/21 08:50 06/14/21 08:55 06/14/21 09:00 Temperature 97.8 F Pulse Rate 64 64 64 Respiratory Rate 23 H 14 19 Blood Pressure 157/90 H 168/90 H 164/88 H Pulse Oximetry 95 95 96 06/14/21 10:42 06/14/21 10:43 06/14/21 18:00 Temperature 98.2 F Pulse Rate 97 97 88 Respiratory Rate Blood Pressure 151/70 H 151/70 H 160/86 H Pulse Oximetry 98 Body Mass Index 29.5 Labs Results: 05/22/21 12:22 05/23/21 07:25 Imaging Radiology Impressions: ITS Impressions Head CT 05/24/21 15:15 IMPRESSION: 1. Status post prior right craniotomy with scattered right periventricular white matter gliosis and compensatory right ventricular dilatation.. 2. Generalized atrophy with ventricular dilatation and prominent cortical sulci and fissures and cisterns. No edema or mass effect. 3. No intracranial hemorrhage or hematoma or extra-axial fluid collection. Medications Medications Current Medications Generic Name Dose Route Start Last Admin Trade Name Freq PRN Reason Stop Dose Admin Acetaminophen 650 mg 05/22/21 17:28 06/13/21 11:20 Acetaminophen 325 Mg Tablet PO 650 mg Q6H PRN Administration Headache/Pain Mild Scale (1-3) Al Hydroxide/Mg Hydroxide 30 ml 05/22/21 17:28 Magnesium Hydrox/Alum Hydrox 30 Ml Oral.Susp PO Q6H PRN Heartburn/Nausea Albuterol Sulfate 2 puff 05/22/21 22:00 06/10/21 09:24 Albuterol Sulfate 90 Mcg 8 Gm Inhaler INHALE 2 puff Q6H PRN Administration Shortness of Breath/Wheezing Amlodipine Besylate 7.5 mg 06/13/21 09:00 06/14/21 10:43 Amlodipine Besylate 2.5 Mg Tablet PO 7.5 mg DAILY TAZ Administration Protocol Aripiprazole 10 mg 06/14/21 09:00 06/14/21 10:42 Aripiprazole 10 Mg Tablet PO 10 mg DAILY TAZ Administration Clotrimazole 1 appl 06/14/21 11:30 06/14/21 22:01 Clotrimazole 1 % Cream 15 Gm Tube TOPICAL 1 appl BID TAZ Administration Protocol Docusate Sodium 100 mg 05/23/21 09:00 06/14/21 22:00 Docusate Sodium 100 Mg Capsule PO 100 mg BID TAZ Administration Escitalopram Oxalate 10 mg 06/14/21 09:00 06/14/21 10:44 Escitalopram Oxalate 10 Mg Tablet PO 10 mg DAILY TAZ Administration Finasteride 5 mg 05/23/21 09:00 06/14/21 10:42 Finasteride 5 Mg Tablet PO 5 mg DAILY TAZ Administration Gabapentin 300 mg 06/13/21 08:30 06/14/21 16:29 Gabapentin 300 Mg Capsule PO 300 mg BID@0830,1630 TAZ Administration Hydrocortisone 1 appl 06/09/21 10:03 06/13/21 11:25 Hydrocortisone 2.5 % Rectal Cr 30 Gm Tube NM 1 appl 6XD PRN Administration after each bowel movement Lactated Ringer's 1,000 mls @ 50 mls/hr 06/14/21 07:30 06/14/21 09:55 Lr IVCONT Not Given .Q20H TAZ Ibuprofen 400 mg 05/27/21 09:30 06/14/21 16:28 Ibuprofen 400 Mg Tablet PO 400 mg Q6H PRN Administration Pain, Moderate (Pain Scale 4-6 Lamotrigine 150 mg 06/08/21 09:00 06/14/21 10:43 Lamotrigine 25 Mg Tablet PO 150 mg DAILY TAZ Administration Latanoprost 1 drop 05/27/21 21:00 06/14/21 22:01 Latanoprost 0.005 % Ophth No 2.5 Ml Drops EYE-BOTH 1 drop BEDTIME TAZ Administration Lidocaine 1 patch 05/30/21 09:00 06/14/21 10:57 Lidocaine 4 % Patch Adh..Patch TRANSDERMA Not Given DAILY TAZ Protocol Lisinopril 40 mg 06/04/21 09:00 06/14/21 10:42 Lisinopril 40 Mg Tablet PO 40 mg DAILY TAZ Administration Protocol Lorazepam 1 mg 06/10/21 21:00 06/14/21 22:00 Lorazepam 1 Mg Tablet PO 1 mg BEDTIME TAZ Administration Lorazepam 0.5 mg 06/11/21 09:00 06/14/21 10:42 Lorazepam 0.5 Mg Tablet PO 0.5 mg DAILY TAZ Administration Lorazepam 0.5 mg 06/11/21 10:39 06/14/21 16:28 Lorazepam 0.5 Mg Tablet PO 0.5 mg Q6H PRN Administration anxiety/restlessness Magnesium Hydroxide 30 ml 05/22/21 17:28 06/05/21 14:39 Milk Of Magnesia 30 Ml Oral.Susp PO 30 ml DAILY PRN Administration Constipation Melatonin 6 mg 05/28/21 21:00 06/14/21 22:00 Melatonin 3 Mg Tablet PO 6 mg BEDTIME TAZ Administration Mirtazapine 30 mg 06/10/21 21:00 06/14/21 22:00 Mirtazapine 15 Mg Tablet PO 30 mg BEDTIME TAZ Administration Multivitamins/Minerals 1 tab 05/23/21 09:00 06/14/21 10:43 Multivitamin With Minerals Tablet PO 1 tab DAILY TAZ Administration Mupirocin 1 appl 06/14/21 15:00 06/14/21 22:01 Mupirocin 2 % Oint 22 Gm Tube TOPICAL 1 appl TID TAZ Administration Protocol Ondansetron HCl 4 mg 05/28/21 13:46 Ondansetron Odt 4 Mg Tab.Rapdis TRANSLINGU Q8H PRN Nausea and Vomiting Polyethylene Glycol 17 gm 05/25/21 17:00 06/14/21 16:29 Polyethylene Glycol 3350 17 Gm Powd.Pack PO 17 gm DAILY@1700 TAZ Administration Quetiapine Fumarate 25 mg 06/13/21 21:22 Quetiapine Fumarate 25 Mg Tablet PO Q4H PRN anxiety/restlessness Sodium Biphosphate/Sodium Phosphate 118 ml 05/22/21 21:38 Sodium Phosphate,[place]-Dibasic 133 Ml Enema NM DAILY PRN Constipation Trazodone HCl 300 mg 05/22/21 22:00 06/14/21 21:59 Trazodone Hcl 100 Mg Tablet PO 300 mg BEDTIME TAZ Administration Allergies Allergies Allergy/AdvReac Type Severity Reaction Status Date / Time fentanyl [FENTANYL] Allergy Intermediate unknown Verified 05/22/21 11:43 Assessment & Plan Assessment & Plan (1) Major depressive disorder, recurrent severe without psychotic features: Status: Acute Code(s): F33.2 - Major depressive disorder, recurrent severe without psychotic features Assessment and Plan: cont ect abilify inc mirtazapine increase Lexapro back to therapeutic doses cont ect (2) Cognitive and neurobehavioral dysfunction following brain injury: Status: Acute Code(s): G31.89 - Other specified degenerative diseases of nervous system; F09 - Unspecified mental disorder due to known physiological condition; S06.9X9S - Unspecified intracranial injury with loss of consciousness of unspecified duration, sequela Assessment and Plan: CONTINUE LAMICTAL ABILIFY ADD SEROQUEL P.R.N. FOR AGITATION (3) HTN (hypertension): Status: Acute Code(s): I10 - Essential (primary) hypertension Assessment and Plan: Patient more irritability dysphoria unclear if related to other patient on the unit to any withdrawal symptoms from coming off gabapentin and Lamictal gabapentin 300 t.i.d. Lamictal increased to 150 taper Lexapro taper Abilify consider Seroquel Ativan restarted ECT for tomorrow monitor response Looking to go to a family structured setting supported by DDS patient aware this may take at least 6 months CONT PLAN OF CARE coordinate outpatient treatment including individual counseling more social and cognitive engagement nicolasa Greater than 50% of the session was spent on counseling and/or coordination of care Reason for contiued inpatient stay Substantial Risk for: harm to self and rapid decompensation
--- NOTE | 2021-06-15 01:11 | PC.NURSE ---
iv on EMAR not given. will have MD assess order.
[2021-06-15 08:35] VITALS: BP 149/73; PULSE 65; RESP 20; TEMP 36.6; O2SAT 99
[2021-06-15] MEDS: Albuterol Sulfate 90 MCG 8 GM INHALER 2 PUFF INHALE (08:35)
[2021-06-15 08:36] VITALS: BP 149/73; PULSE 65
[2021-06-15] MEDS: Escitalopram Oxalate 10 MG TABLET PO (08:36)
[2021-06-15] MEDS: amLODIPine Besylate 2.5 MG TABLET 7.5 MG PO (08:36)
[2021-06-15] MEDS: LORazepam 0.5 MG TABLET PO ×3 (08:36→21:33)
[2021-06-15] MEDS: lamoTRIgine 25 MG TABLET 150 MG PO (08:36)
[2021-06-15 08:37] VITALS: BP 149/73; PULSE 65
[2021-06-15] MEDS: Ibuprofen 400 MG TABLET PO (08:37)
[2021-06-15] MEDS: Finasteride 5 MG TABLET PO (08:37)
[2021-06-15] MEDS: lisinopriL 40 MG TABLET PO (08:37)
[2021-06-15] MEDS: Gabapentin 300 MG CAPSULE PO ×2 (08:37→16:02)
[2021-06-15] MEDS: Docusate Sodium 100 MG CAPSULE PO ×2 (08:38→21:26)
[2021-06-15] MEDS: ARIPiprazole 10 MG TABLET PO (08:38)
[2021-06-15] MEDS: Mupirocin 2 % Oint 22 GM TUBE 1 APPL TOPICAL (08:39)
[2021-06-15] MEDS: Hydrocortisone 2.5 % Rectal Cr 30 GM TUBE 1 APPL PR (08:39)
[2021-06-15] MEDS: polyethylene glycoL 3350 17 GM POWD.PACK PO (16:55)
--- NOTE | 2021-06-15 17:09 | PC.NURSE ---
Patient is alert and oriented x 3. Reporting Pain 6/10 to Back and Left hip. Patient report Depression 6/10 and Anxiety 7/10. Patient denies SI. When asked if he was experiencing thought of harm towards others, he replies Fleeting thoughts, yes. If it comes down to it, No. Patient is noted to have fungal rash to gluteal crease and groin; Medicated cream applied. Patient is noted to have dry flaky skin to bilateral lower extremities; moisturizer applied. Patients toes cleaned as skin build up noted. Patient is requesting a Full CBC to send to his PCP. He specifically is interested in his LFTs and PSA levels.
[2021-06-15 17:43] VITALS: BP 151/73; PULSE 74; RESP 20; TEMP 36.8; O2SAT 97
[2021-06-15] MEDS: Latanoprost 0.005 % Ophth Sol 2.5 ML DROPS 1 DROP EYE-BOTH (21:24)
[2021-06-15] MEDS: Clotrimazole 1 % Cream 15 GM TUBE 1 APPL TOPICAL (21:24)
[2021-06-15] MEDS: traZODone HCL 100 MG TABLET 300 MG PO (21:25)
[2021-06-15] MEDS: Melatonin 3 MG TABLET 6 MG PO (21:26)
[2021-06-15] MEDS: Mirtazapine 15 MG TABLET 30 MG PO (21:26)
--- NOTE | 2021-06-15 23:32 | P.PNPSI_ITS ---
Subjective Subjective Date of Service: 06/15/21 Reason For Visit: Depression SI Interim History: Patient seen. DW team. Patient reports he has been doing well. He reports he is looking forward to his ECT treatment Thursday before being DCed. He denies SI. Review of Systems Review of Systems Nil new or acute Yes all other systems are reviewed and are negative Constitutional: Reports as per HPI and Reports no additional constitutional complaints Eyes: Reports as per HPI and Reports no additional eye complaints Reports system reviewed and no additional complaints, except as documented and Reports as per HPI Cardiovascular: Reports as per HPI and Reports no additional cardiovascular complaints Respiratory: Reports as per HPI and Reports no additional respiratory complaints Gastrointestinal: Reports as per HPI and Reports no additional gastrointestinal complaints Genitourinary: Reports no additional male genitourinary complaints and Reports as per HPI Musculoskeletal: Reports no additional musculoskeletal complaints, Reports as per HPI and Reports back pain ( Chronic) Reports system reviewed and no additional complaints, except as documented and Reports as per HPI Psychiatric: Reports no additional psychiatric complaints and Reports as per HPI Mental Status Exam Mental Status Exam Narrative: Patient Appearance: Well Grooomed Patient Orientation: Person, Place and Time Level of Consciousness: Awake Patient Behavior: Appropriate and Good Eye Contact Behavior Comments: pt irritable triggered by another pt Mood Description: Withdrawn and Appropriate Affect Description: Constricted, Anxious, Blunted and Apprehensive Patient Cognition Impaired: No Ability to Follow Directions: Good Speech Pattern: Clear and Delayed Memory Description: Intact Diagnostics Vital Signs (24Hr): Vital Signs - 24 hr 06/15/21 08:35 06/15/21 08:36 06/15/21 08:37 Temperature 97.8 F Pulse Rate 65 65 65 Respiratory Rate 20 Blood Pressure 149/73 H 149/73 H 149/73 H Pulse Oximetry 99 06/15/21 17:43 Temperature 98.2 F Pulse Rate 74 Respiratory Rate 20 Blood Pressure 151/73 H Pulse Oximetry 97 Body Mass Index 29.5 Labs Results: 05/22/21 12:22 05/23/21 07:25 Imaging Radiology Impressions: ITS Impressions Head CT 05/24/21 15:15 IMPRESSION: 1. Status post prior right craniotomy with scattered right periventricular white matter gliosis and compensatory right ventricular dilatation.. 2. Generalized atrophy with ventricular dilatation and prominent cortical sulci and fissures and cisterns. No edema or mass effect. 3. No intracranial hemorrhage or hematoma or extra-axial fluid collection. Medications Medications Current Medications Generic Name Dose Route Start Last Admin Trade Name Freq PRN Reason Stop Dose Admin Acetaminophen 650 mg 05/22/21 17:28 06/13/21 11:20 Acetaminophen 325 Mg Tablet PO 650 mg Q6H PRN Administration Headache/Pain Mild Scale (1-3) Al Hydroxide/Mg Hydroxide 30 ml 05/22/21 17:28 Magnesium Hydrox/Alum Hydrox 30 Ml Oral.Susp PO Q6H PRN Heartburn/Nausea Albuterol Sulfate 2 puff 05/22/21 22:00 06/15/21 08:35 Albuterol Sulfate 90 Mcg 8 Gm Inhaler INHALE 2 puff Q6H PRN Administration Shortness of Breath/Wheezing Amlodipine Besylate 7.5 mg 06/13/21 09:00 06/15/21 08:36 Amlodipine Besylate 2.5 Mg Tablet PO 7.5 mg DAILY TAZ Administration Protocol Aripiprazole 10 mg 06/14/21 09:00 06/15/21 08:38 Aripiprazole 10 Mg Tablet PO 10 mg DAILY TAZ Administration Clotrimazole 1 appl 06/14/21 11:30 06/15/21 21:24 Clotrimazole 1 % Cream 15 Gm Tube TOPICAL 1 appl BID TAZ Administration Protocol Docusate Sodium 100 mg 05/23/21 09:00 06/15/21 21:26 Docusate Sodium 100 Mg Capsule PO 100 mg BID TAZ Administration Escitalopram Oxalate 10 mg 06/14/21 09:00 06/15/21 08:36 Escitalopram Oxalate 10 Mg Tablet PO 10 mg DAILY TAZ Administration Finasteride 5 mg 05/23/21 09:00 06/15/21 08:37 Finasteride 5 Mg Tablet PO 5 mg DAILY TAZ Administration Gabapentin 300 mg 06/13/21 08:30 06/15/21 16:02 Gabapentin 300 Mg Capsule PO 300 mg BID@0830,1630 TAZ Administration Hydrocortisone 1 appl 06/09/21 10:03 06/15/21 08:39 Hydrocortisone 2.5 % Rectal Cr 30 Gm Tube NM 1 appl 6XD PRN Administration after each bowel movement Lactated Ringer's 1,000 mls @ 50 mls/hr 06/14/21 07:30 06/15/21 01:11 Lr IVCONT Not Given .Q20H TAZ Ibuprofen 400 mg 05/27/21 09:30 06/15/21 08:37 Ibuprofen 400 Mg Tablet PO 400 mg Q6H PRN Administration Pain, Moderate (Pain Scale 4-6 Lamotrigine 150 mg 06/08/21 09:00 06/15/21 08:36 Lamotrigine 25 Mg Tablet PO 150 mg DAILY TAZ Administration Latanoprost 1 drop 05/27/21 21:00 06/15/21 21:24 Latanoprost 0.005 % Ophth No 2.5 Ml Drops EYE-BOTH 1 drop BEDTIME TAZ Administration Lidocaine 1 patch 05/30/21 09:00 06/15/21 10:25 Lidocaine 4 % Patch Adh..Patch TRANSDERMA Not Given DAILY [facility] Protocol Lisinopril 40 mg 06/04/21 09:00 06/15/21 08:37 Lisinopril 40 Mg Tablet PO 40 mg DAILY TAZ Administration Protocol Lorazepam 0.5 mg 06/11/21 09:00 06/15/21 08:36 Lorazepam 0.5 Mg Tablet PO 0.5 mg DAILY TAZ Administration Lorazepam 0.5 mg 06/11/21 10:39 06/15/21 21:33 Lorazepam 0.5 Mg Tablet PO 0.5 mg Q6H PRN Administration anxiety/restlessness Magnesium Hydroxide 30 ml 05/22/21 17:28 06/05/21 14:39 Milk Of Magnesia 30 Ml Oral.Susp PO 30 ml DAILY PRN Administration Constipation Melatonin 6 mg 05/28/21 21:00 06/15/21 21:26 Melatonin 3 Mg Tablet PO 6 mg BEDTIME TAZ Administration Mirtazapine 30 mg 06/10/21 21:00 06/15/21 21:26 Mirtazapine 15 Mg Tablet PO 30 mg BEDTIME TAZ Administration Multivitamins/Minerals 1 tab 05/23/21 09:00 06/15/21 08:37 Multivitamin With Minerals Tablet PO 1 tab DAILY TAZ Administration Mupirocin 1 appl 06/14/21 15:00 06/15/21 16:03 Mupirocin 2 % Oint 22 Gm Tube TOPICAL Not Given TID [facility] Protocol Ondansetron HCl 4 mg 05/28/21 13:46 Ondansetron Odt 4 Mg Tab.Rapdis TRANSLINGU Q8H PRN Nausea and Vomiting Polyethylene Glycol 17 gm 05/25/21 17:00 06/15/21 16:55 Polyethylene Glycol 3350 17 Gm Powd.Pack PO 17 gm DAILY@1700 TAZ Administration Quetiapine Fumarate 25 mg 06/13/21 21:22 Quetiapine Fumarate 25 Mg Tablet PO Q4H PRN anxiety/restlessness Sodium Biphosphate/Sodium Phosphate 118 ml 05/22/21 21:38 Sodium Phosphate,[place]-Dibasic 133 Ml Enema NM DAILY PRN Constipation Trazodone HCl 300 mg 05/22/21 22:00 06/15/21 21:25 Trazodone Hcl 100 Mg Tablet PO 300 mg BEDTIME TAZ Administration Allergies Allergies Allergy/AdvReac Type Severity Reaction Status Date / Time fentanyl [FENTANYL] Allergy Intermediate unknown Verified 05/22/21 11:43 Assessment & Plan Assessment & Plan (1) Major depressive disorder, recurrent severe without psychotic features: Status: Acute Code(s): F33.2 - Major depressive disorder, recurrent severe without psychotic features Assessment and Plan: cont ect, abilify, mirtazapine Lexapro (2) Cognitive and neurobehavioral dysfunction following brain injury: Status: Acute Code(s): G31.89 - Other specified degenerative diseases of nervous system; F09 - Unspecified mental disorder due to known physiological condition; S06.9X9S - Unspecified intracranial injury with loss of consciousness of unspecified durat ion, sequela Assessment and Plan: CONTINUE LAMICTAL ABILIFY ADD SEROQUEL P.R.N. FOR AGITATION (3) HTN (hypertension): Status: Acute Code(s): I10 - Essential (primary) hypertension Assessment and Plan: Patient more irritability dysphoria unclear if related to other patient on the unit to any withdrawal symptoms from coming off gabapentin and Lamictal gabapentin 300 t.i.d. Lamictal increased to 150 taper Lexapro taper Abilify consider Seroquel Ativan restarted Continue ECT per primary team. Looking to go to a family structured setting supported by DDS patient aware this may take at least 6 months CONT PLAN OF CARE coordinate outpatient treatment including individual counseling more social and cognitive engagement nicolasa Greater than 50% of the session was spent on counseling and/or coordination of care Reason for contiued inpatient stay Substantial Risk for: inability to function and rapid decompensation
[2021-06-16 08:16] VITALS: BP 159/79; PULSE 78; RESP 18; TEMP 36.2; O2SAT 97
[2021-06-16] MEDS: Ibuprofen 400 MG TABLET PO (08:20)
[2021-06-16] MEDS: lamoTRIgine 25 MG TABLET 150 MG PO (08:20)
[2021-06-16 08:21] VITALS: BP 159/79; PULSE 78
[2021-06-16] MEDS: lisinopriL 40 MG TABLET PO (08:21)
[2021-06-16] MEDS: Escitalopram Oxalate 10 MG TABLET PO (08:21)
[2021-06-16] MEDS: amLODIPine Besylate 2.5 MG TABLET 7.5 MG PO (08:21)
[2021-06-16] MEDS: Gabapentin 300 MG CAPSULE PO ×2 (08:21→16:07)
[2021-06-16] MEDS: Finasteride 5 MG TABLET PO (08:22)
[2021-06-16] MEDS: LORazepam 0.5 MG TABLET PO ×2 (08:22→17:17)
[2021-06-16] MEDS: Docusate Sodium 100 MG CAPSULE PO ×2 (08:22→21:30)
[2021-06-16] MEDS: ARIPiprazole 10 MG TABLET PO (08:22)
[2021-06-16] MEDS: Hydrocortisone 2.5 % Rectal Cr 30 GM TUBE 1 APPL PR ×2 (09:22→21:31)
[2021-06-16] MEDS: Mupirocin 2 % Oint 22 GM TUBE 1 APPL TOPICAL ×2 (09:23→21:29)
[2021-06-16] MEDS: Clotrimazole 1 % Cream 15 GM TUBE 1 APPL TOPICAL ×2 (09:34→21:30)
--- NOTE | 2021-06-16 13:49 | P.PNPSI_ITS ---
Subjective Subjective Date of Service: 06/16/21 Reason For Visit: Depression SI Interim History: Patient seen. DW team. Patient reports he has been doing well. He is asking about getting a PSA and a CBC for his PCP. We discuss there no hospital indication for these tests and should be ordered by PCP. He understands. He reports he is looking forward to his ECT treatment Thursday before being DCed. He denies SI. Review of Systems Review of Systems Nil new or acute Yes all other systems are reviewed and are negative Constitutional: Reports as per HPI and Reports no additional constitutional complaints Eyes: Reports as per HPI and Reports no additional eye complaints Reports system reviewed and no additional complaints, except as documented and R eports as per HPI Cardiovascular: Reports as per HPI and Reports no additional cardiovascular complaints Respiratory: Reports as per HPI and Reports no additional respiratory complaints Gastrointestinal: Reports as per HPI and Reports no additional gastrointestinal complaints Genitourinary: Reports no additional male genitourinary complaints and Reports as per HPI Musculoskeletal: Reports no additional musculoskeletal complaints, Reports as per HPI and Reports back pain ( Chronic) Reports system reviewed and no additional complaints, except as documented and Reports as per HPI Psychiatric: Reports no additional psychiatric complaints and Reports as per HPI Mental Status Exam Mental Status Exam Narrative: Patient Appearance: Well Grooomed Patient Orientation: Person, Place and Time Level of Consciousness: Awake Patient Behavior: Appropriate and Good Eye Contact Behavior Comments: pt irritable triggered by another pt Mood Description: Withdrawn and Appropriate Affect Description: Constricted, Anxious, Blunted and Apprehensive Patient Cognition Impaired: No Ability to Follow Directions: Good Speech Pattern: Clear and Delayed Memory Description: Intact Delusions: Not Present Thought Process: Intact Thought Content: positive for Intact and positive for Linear Judgement: Good Diagnostics Vital Signs (24Hr): Vital Signs - 24 hr 06/15/21 17:43 06/16/21 08:16 06/16/21 08:21 Temperature 98.2 F 97.1 F Pulse Rate 74 78 78 Respiratory Rate 20 18 Blood Pressure 151/73 H 159/79 H 159/79 H Pulse Oximetry 97 97 Body Mass Index 29.5 Labs Results: 05/22/21 12:22 05/23/21 07:25 Imaging Radiology Impressions: ITS Impressions Head CT 05/24/21 15:15 IMPRESSION: 1. Status post prior right craniotomy with scattered right periventricular white matter gliosis and compensatory right ventricular dilatation.. 2. Generalized atrophy with ventricular dilatation and prominent cortical sulci and fissures and cisterns. No edema or mass effect. 3. No intracranial hemorrhage or hematoma or extra-axial fluid collection. Medications Medications Current Medications Generic Name Dose Route Start Last Admin Trade Name Freq PRN Reason Stop Dose Admin Acetaminophen 650 mg 05/22/21 17:28 06/13/21 11:20 Acetaminophen 325 Mg Tablet PO 650 mg Q6H PRN Administration Headache/Pain Mild Scale (1-3) Al Hydroxide/Mg Hydroxide 30 ml 05/22/21 17:28 Magnesium Hydrox/Alum Hydrox 30 Ml Oral.Susp PO Q6H PRN Heartburn/Nausea Albuterol Sulfate 2 puff 05/22/21 22:00 06/15/21 08:35 Albuterol Sulfate 90 Mcg 8 Gm Inhaler INHALE 2 puff Q6H PRN Administration Shortness of Breath/Wheezing Amlodipine Besylate 7.5 mg 06/13/21 09:00 06/16/21 08:21 Amlodipine Besylate 2.5 Mg Tablet PO 7.5 mg DAILY TAZ Administration Protocol Aripiprazole 10 mg 06/14/21 09:00 06/16/21 08:22 Aripiprazole 10 Mg Tablet PO 10 mg DAILY TAZ Administration Clotrimazole 1 appl 06/14/21 11:30 06/16/21 09:34 Clotrimazole 1 % Cream 15 Gm Tube TOPICAL 1 appl BID TAZ Administration Protocol Docusate Sodium 100 mg 05/23/21 09:00 06/16/21 08:22 Docusate Sodium 100 Mg Capsule PO 100 mg BID TAZ Administration Escitalopram Oxalate 10 mg 06/14/21 09:00 06/16/21 08:21 Escitalopram Oxalate 10 Mg Tablet PO 10 mg DAILY TAZ Administration Finasteride 5 mg 05/23/21 09:00 06/16/21 08:22 Finasteride 5 Mg Tablet PO 5 mg DAILY TAZ Administration Gabapentin 300 mg 06/13/21 08:30 06/16/21 08:21 Gabapentin 300 Mg Capsule PO 300 mg BID@0830,1630 TAZ Administration Hydrocortisone 1 appl 06/09/21 10:03 06/16/21 09:22 Hydrocortisone 2.5 % Rectal Cr 30 Gm Tube DE 1 appl 6XD PRN Administration after each bowel movement Lactated Ringer's 1,000 mls @ 50 mls/hr 06/14/21 07:30 06/16/21 01:03 Lr IVCONT Not Given .Q20H TAZ Ibuprofen 400 mg 05/27/21 09:30 06/16/21 08:20 Ibuprofen 400 Mg Tablet PO 400 mg Q6H PRN Administration Pain, Moderate (Pain Scale 4-6 Lamotrigine 150 mg 06/08/21 09:00 06/16/21 08:20 Lamotrigine 25 Mg Tablet PO 150 mg DAILY TAZ Administration Latanoprost 1 drop 05/27/21 21:00 06/15/21 21:24 Latanoprost 0.005 % Ophth No 2.5 Ml Drops EYE-BOTH 1 drop BEDTIME TAZ Administration Lidocaine 1 patch 05/30/21 09:00 06/16/21 11:01 Lidocaine 4 % Patch Adh..Patch TRANSDERMA Not Given DAILY TAZ Protocol Lisinopril 40 mg 06/04/21 09:00 06/16/21 08:21 Lisinopril 40 Mg Tablet PO 40 mg DAILY TAZ Administration Protocol Magnesium Hydroxide 30 ml 05/22/21 17:28 06/05/21 14:39 Milk Of Magnesia 30 Ml Oral.Susp PO 30 ml DAILY PRN Administration Constipation Melatonin 6 mg 05/28/21 21:00 06/15/21 21:26 Melatonin 3 Mg Tablet PO 6 mg BEDTIME TAZ Administration Mirtazapine 30 mg 06/10/21 21:00 06/15/21 21:26 Mirtazapine 15 Mg Tablet PO 30 mg BEDTIME TAZ Administration Multivitamins/Minerals 1 tab 05/23/21 09:00 06/16/21 08:22 Multivitamin With Minerals Tablet PO 1 tab DAILY TAZ Administration Mupirocin 1 appl 06/14/21 15:00 06/16/21 09:23 Mupirocin 2 % Oint 22 Gm Tube TOPICAL 1 appl TID TAZ Administration Protocol Ondansetron HCl 4 mg 05/28/21 13:46 Ondansetron Odt 4 Mg Tab.Rapdis TRANSLINGU Q8H PRN Nausea and Vomiting Polyethylene Glycol 17 gm 05/25/21 17:00 06/15/21 16:55 Polyethylene Glycol 3350 17 Gm Powd.Pack PO 17 gm DAILY@1700 TAZ Administration Quetiapine Fumarate 25 mg 06/13/21 21:22 Quetiapine Fumarate 25 Mg Tablet PO Q4H PRN anxiety/restlessness Sodium Biphosphate/Sodium Phosphate 118 ml 05/22/21 21:38 Sodium Phosphate,[place]-Dibasic 133 Ml Enema [place] DAILY PRN Constipation Trazodone HCl 300 mg 05/22/21 22:00 06/15/21 21:25 Trazodone Hcl 100 Mg Tablet PO 300 mg BEDTIME TAZ Administration Allergies Allergies Allergy/AdvReac Type Severity Reaction Status Date / Time fentanyl [FENTANYL] Allergy Intermediate unknown Verified 05/22/21 11:43 Assessment & Plan Assessment & Plan (1) Major depressive disorder, recurrent severe without psychotic features: Status: Acute Code(s): F33.2 - Major depressive disorder, recurrent severe without psychotic features Assessment and Plan: cont ect, abilify, mirtazapine Lexapro (2) Cognitive and neurobehavioral dysfunction following brain injury: Status: Acute Code(s): G31.89 - Other specified degenerative diseases of nervous system; F09 - Unspecified mental disorder due to known physiological condition; S06.9X9S - Unspecified intracranial injury with loss of consciousness of unspecified duration, sequela Assessment and Plan: CONTINUE LAMICTAL ABILIFY ADD SEROQUEL P.R.N. FOR AGITATION (3) HTN (hypertension): Status: Acute Code(s): I10 - Essential (primary) hypertension Assessment and Plan: Patient more irritability dysphoria unclear if related to other patient on the unit to any withdrawal symptoms from coming off gabapentin and Lamictal gabapentin 300 t.i.d. Lamictal increased to 150 taper Lexapro taper Abilify consider Seroquel Ativan restarted Continue ECT per primary team. Looking to go to a family structured setting supported by DDS patient aware this may take at least 6 months CONT PLAN OF CARE coordinate outpatient treatment including individual counseling more social and cognitive engagement nicolasa Greater than 50% of the session was spent on counseling and/or coordination of care Reason for contiued inpatient stay Substantial Risk for: harm to self and inability to function
[2021-06-16] MEDS: polyethylene glycoL 3350 17 GM POWD.PACK PO (13:54)
[2021-06-16 18:00] VITALS: BP 150/74; PULSE 75; RESP 16; TEMP 36.7; O2SAT 95
--- NOTE | 2021-06-16 18:36 | PC.NURSE ---
Patient is alert and oriented x4. Patient is isolative to self, but less labile and irritable than in previous days. Patient showered. Patient has fungal rash to groin and gluteal crease with offending hemorrhoid; ordered creams applied. Patient is future oriented, states fears about returning to retirement without the support of staff here at [facility]. Patient is hopeful about future adult foster placement. Patient states readiness for ECT tomorrow, 06/17/21
[2021-06-16] MEDS: Acetaminophen 325 MG TABLET 650 MG PO (20:01)
[2021-06-16] MEDS: traZODone HCL 100 MG TABLET 300 MG PO (21:22)
[2021-06-16] MEDS: Latanoprost 0.005 % Ophth Sol 2.5 ML DROPS 1 DROP EYE-BOTH (21:23)
[2021-06-16] MEDS: Melatonin 3 MG TABLET 6 MG PO (21:23)
[2021-06-16] MEDS: Mirtazapine 15 MG TABLET 30 MG PO (21:23)
[2021-06-17] VITALS (14 sets, daily range): BP systolic 121–182; BP diastolic 61–97; PULSE 63–79; RESP 16–20; TEMP 36.1–36.7; O2SAT 93–99; BMI 29.5
[2021-06-17] MEDS: lisinopriL 40 MG TABLET PO (05:41)
[2021-06-17] MEDS: amLODIPine Besylate 2.5 MG TABLET 7.5 MG PO (05:41)
[2021-06-17] MEDS: Albuterol Sulfate 90 MCG 8 GM INHALER 2 PUFF INHALE ×2 (05:49→08:09)
--- NOTE | 2021-06-17 07:01 | MHC.SHP ---
Pre-Procedural Eval Section A Date of Service: 06/17/21 The patient is an INPATIENT: Yes Changes since office visit: No Cold of Flu in the past 2 weeks, No New Medical Problems, No Changes in Medication and No Patient answered all questions The History & Physical has been completed within 30 days and I have reviewed it.: Yes Section B Chief Complaint: Depression SI Allergies: Allergies Allergy/AdvReac Type Severity Reaction Status Date / Time fentanyl [FENTANYL] Allergy Intermediate unknown Verified 05/22/21 11:43 Plan I have reviewed the history and physical and performed a pertinent physical examination on my patient. No changes have occurred unless specified.
--- NOTE | 2021-06-17 07:03 | HO.ECTPROC ---
ECT Procedure Note Diagnosis/Treatment Date of Service: 06/17/21 Diagnosis: Major Depressive Disorder Previous ECT Date: 06/14/21 Current Treatment Number: 8 Treatment: Series Interval Clinical Notes: The patient reported improvement of depression with ECT. No side effects ECT Settings Device: THYMATRON DGx Electrode Placement: Bifrontal Program/Pulse Width: 0.50 Energy Percent: 100 Seizure Duration By EEG (in seconds): 66 By Motor Observation (in seconds): 11 Medications Administration General Anesthetic: Etomidate (16) Muscle Relaxant: Succinylcholine (100) Ancillary Medications Analgesics: Torodol - Pre ECT Anti-emetics: Zofran - Pre ECT Miscillaneous Medications: Propofol Treatment Recommendations No Changes Recommended: No change Pt Tolerated Procedure w/o Issue: Yes
--- NOTE | 2021-06-17 07:53 | HO.ANESPROP2 ---
[facility] Active Problems Active Problems: All Active Problems (Updated 05/24/21 @ 23:38 by Addy Haskins MD) Major depressive disorder, recurrent severe without psychotic features (Acute) Cognitive and neurobehavioral dysfunction following brain injury (Acute) HTN (hypertension) (Acute) Past Medical History Medical History Alcohol use disorder, severe, in sustained remission Cognitive and neurobehavioral dysfunction following brain injury Hernia HTN (hypertension) Major depressive disorder, recurrent Major depressive disorder, recurrent severe without psychotic features Family History Family history of problems with anesthesia: No Surgical History Surgical History H/O brain surgery History of hip replacement S/P cholecystectomy History of Problems with Anesthesia: No Social History Social History Household Members: Other Household Members Other:: 3 housemates in [facility] Housing: Other Housing Other:: [facility] Patient Tobacco Use Status: Never used Tobacco Advance Directives Date on File: 05/27/19 service: No Sexual orientation: Straight/Heterosexual Meds Allergies Allergy/AdvReac Type Severity Reaction Status Date / Time fentanyl [FENTANYL] Allergy Intermediate unknown Verified 05/22/21 11:43 Active Medications: Current Medications Generic Name Dose Route Start Last Admin Trade Name Camdenq PRN Reason Stop Dose Admin Acetaminophen 650 mg 05/22/21 17:28 06/16/21 20:01 Acetaminophen 325 Mg Tablet PO 650 mg Q6H PRN Administration Headache/Pain Mild Scale (1-3) Al Hydroxide/Mg Hydroxide 30 ml 05/22/21 17:28 Magnesium Hydrox/Alum Hydrox 30 Ml Oral.Susp PO Q6H PRN Heartburn/Nausea Albuterol Sulfate 2 puff 05/22/21 22:00 06/17/21 05:49 Albuterol Sulfate 90 Mcg 8 Gm Inhaler INHALE 2 puff Q6H PRN Administration Shortness of Breath/Wheezing Amlodipine Besylate 7.5 mg 06/13/21 09:00 06/17/21 05:41 Amlodipine Besylate 2.5 Mg Tablet PO 7.5 mg DAILY TAZ Administration Protocol Aripiprazole 10 mg 06/14/21 09:00 06/16/21 08:22 Aripiprazole 10 Mg Tablet PO 10 mg DAILY TAZ Administration Clotrimazole 1 appl 06/14/21 11:30 06/16/21 21:30 Clotrimazole 1 % Cream 15 Gm Tube TOPICAL 1 appl BID TAZ Administration Protocol Docusate Sodium 100 mg 05/23/21 09:00 06/16/21 21:30 Docusate Sodium 100 Mg Capsule PO 100 mg BID TAZ Administration Escitalopram Oxalate 10 mg 06/14/21 09:00 06/16/21 08:21 Escitalopram Oxalate 10 Mg Tablet PO 10 mg DAILY TAZ Administration Finasteride 5 mg 05/23/21 09:00 06/16/21 08:22 Finasteride 5 Mg Tablet PO 5 mg DAILY TAZ Administration Gabapentin 300 mg 06/13/21 08:30 06/16/21 16:07 Gabapentin 300 Mg Capsule PO 300 mg BID@0830,1630 TAZ Administration Hydrocortisone 1 appl 06/09/21 10:03 06/16/21 21:31 Hydrocortisone 2.5 % Rectal Cr 30 Gm Tube AL 1 appl 6XD PRN Administration after each bowel movement Ibuprofen 400 mg 05/27/21 09:30 06/16/21 08:20 Ibuprofen 400 Mg Tablet PO 400 mg Q6H PRN Administration Pain, Moderate (Pain Scale 4-6 Lamotrigine 150 mg 06/08/21 09:00 06/16/21 08:20 Lamotrigine 25 Mg Tablet PO 150 mg DAILY TAZ Administration Latanoprost 1 drop 05/27/21 21:00 06/16/21 21:23 Latanoprost 0.005 % Ophth No 2.5 Ml Drops EYE-BOTH 1 drop BEDTIME TAZ Administration Lidocaine 1 patch 05/30/21 09:00 06/16/21 11:01 Lidocaine 4 % Patch Adh..Patch TRANSDERMA Not Given DAILY [facility] Protocol Lisinopril 40 mg 06/04/21 09:00 06/17/21 05:41 Lisinopril 40 Mg Tablet PO 40 mg DAILY TAZ Administration Protocol Lorazepam 0.5 mg 06/16/21 17:08 06/16/21 17:17 Lorazepam 0.5 Mg Tablet PO 0.5 mg Q6H PRN Administration Anxiety Magnesium Hydroxide 30 ml 05/22/21 17:28 06/05/21 14:39 Milk Of Magnesia 30 Ml Oral.Susp PO 30 ml DAILY PRN Administration Constipation Melatonin 6 mg 05/28/21 21:00 06/16/21 21:23 Melatonin 3 Mg Tablet PO 6 mg BEDTIME TAZ Administration Mirtazapine 30 mg 06/10/21 21:00 06/16/21 21:23 Mirtazapine 15 Mg Tablet PO 30 mg BEDTIME TAZ Administration Multivitamins/Minerals 1 tab 05/23/21 09:00 06/16/21 08:22 Multivitamin With Minerals Tablet PO 1 tab DAILY TAZ Administration Mupirocin 1 appl 06/14/21 15:00 06/16/21 21:29 Mupirocin 2 % Oint 22 Gm Tube TOPICAL 1 appl TID TAZ Administration Protocol Ondansetron HCl 4 mg 05/28/21 13:46 Ondansetron Odt 4 Mg Tab.Rapdis TRANSLINGU Q8H PRN Nausea and Vomiting Polyethylene Glycol 17 gm 05/25/21 17:00 06/16/21 13:54 Polyethylene Glycol 3350 17 Gm Powd.Pack PO 17 gm DAILY@1700 TAZ Administration Quetiapine Fumarate 25 mg 06/13/21 21:22 Quetiapine Fumarate 25 Mg Tablet PO Q4H PRN anxiety/restlessness Sodium Biphosphate/Sodium Phosphate 118 ml 05/22/21 21:38 Sodium Phosphate,[place]-Dibasic 133 Ml Enema AL DAILY PRN Constipation Trazodone HCl 300 mg 05/22/21 22:00 06/16/21 21:22 Trazodone Hcl 100 Mg Tablet PO 300 mg BEDTIME TAZ Administration Home Medications Medication Instructions Recorded Confirmed Last Taken Type Tylenol 650 mg PO Q6-8H PRN 05/22/21 05/22/21 Unknown History Tylenol Arthritis Pain 650 mg PO DAILY 05/22/21 05/22/21 Unknown History albuterol 90 mcg/actuation aerosol See Rx Instructions .ROUTE .COMPLEX 05/22/21 05/22/21 Unknown History inhaler amantadine HCl 100 mg tablet 1 tab PO BID 05/22/21 05/22/21 Unknown History aripiprazole 10 mg tablet 1 tab PO DAILY 05/22/21 05/22/21 Unknown History clotrimazole 1 % topical solution See Rx Instructions .ROUTE 05/22/21 05/22/21 Unknown History .COMPLEX PRN dextromethorphan-guaifenesin 10 10 ml PO Q6-8H PRN 05/22/21 05/22/21 Unknown History mg-200 mg/5 mL oral liquid docusate sodium 100 mg capsule 1 cap PO BID 05/22/21 05/22/21 Unknown History docusate sodium 100 mg capsule See Rx Instructions .ROUTE 05/22/21 05/22/21 Unknown History .COMPLEX PRN escitalopram oxalate 20 mg tablet 1 tab PO DAILY 05/22/21 05/22/21 Unknown History finasteride 5 mg tablet 1 tab PO DAILY 05/22/21 05/22/21 Unknown History gabapentin enacarbil 600 mg 1 tab PO BID 05/22/21 05/22/21 Unknown History tablet,extended release ([facility] ER) glycerin 1 drp OPHTHALMIC (EYE) Q1-2H PRN 05/22/21 05/22/21 Unknown History lamotrigine 150 mg tablet 1 tab PO DAILY 05/22/21 05/22/21 Unknown History lamotrigine 200 mg tablet 1 tab PO DAILY 05/22/21 05/22/21 Unknown History latanoprost 0.005 % eye drops 1 drp OPHTHALMIC (EYE) DAILY 05/22/21 05/22/21 Unknown History lisinopril 10 mg tablet 1 tab PO DAILY 05/22/21 05/22/21 Unknown History lorazepam 0.5 mg tablet 1 tab PO DAILY 05/22/21 05/22/21 Unknown History lorazepam 0.5 mg tablet 1 tab PO DAILY PRN 05/22/21 05/22/21 Unknown History lorazepam 1 mg tablet 1 tab PO DAILY 05/22/21 05/22/21 Unknown History magnesium hydroxide 400 mg/5 mL 2,400 mg PO PRN 05/22/21 Unknown History oral suspension (Milk of Magnesia) melatonin 5 mg tablet 5 mg PO BEDTIME 05/22/21 05/22/21 Unknown History odwxydyxzwte-lsqblsoz-zeduem tablet 1 tab PO DAILY 05/22/21 05/22/21 Unknown History polyethylene glycol 3350 17 17 g PO DAILY 05/22/21 05/22/21 Unknown History gram/dose oral powder polyethylene glycol 3350 17 17 g PO DAILY PRN 05/22/21 05/22/21 Unknown History gram/dose oral powder psyllium husk 0.4 gram capsule 0.4 g PO DAILY 05/22/21 05/22/21 Unknown History (Metamucil) sodium phosphates 19 gram-7 118 ml AL DAILY PRN 05/22/21 05/22/21 Unknown History gram/118 mL enema (Fleet Enema) trazodone 150 mg tablet 2 tab PO BEDTIME 05/22/21 05/22/21 Unknown History Exam Exam Date and Time: June 17, 2021 0753 Height,Weight and Vital Signs: Height 6 ft 2 in Weight 104.3 kg Last Vital Signs Temp 97.3 F 06/17/21 06:36 Pulse 63 06/17/21 06:36 Resp 20 06/17/21 06:36 BP 168/81 H 06/17/21 06:36 Pulse Ox 98 06/17/21 06:36 Pertinent Lab Results Pertinent Lab Results: Laboratory Tests 05/22/21 05/22/21 05/22/21 12:22 12:22 12:22 WBC 6.1 RBC 4.30 L Hgb 14.4 Hct 42.3 MCV 98.4 H MCH 33.5 H MCHC 34.0 RDW 11.4 Plt Count 159 L MPV 9.8 Immature Gran % (Auto) 0.7 H Neut % (Auto) 59.8 Lymph % (Auto) 25.8 [place] % (Auto) 8.9 Eos % (Auto) 4.3 H Baso % (Auto) 0.5 Lymph # (Auto) 1.6 [place] # (Auto) 0.5 Eos # (Auto) 0.3 Baso # (Auto) 0.0 Abs Immat Gran (auto) 0.04 H Absolute Neuts (auto) 3.6 Absolute Nucleated RBC 0.000 Nucleated RBC % (auto) 0.0 Sodium 139 Potassium 4.1 Chloride 105 Carbon Dioxide 24 Anion Gap 14 BUN 13 Creatinine 0.86 Estim Creat Clear Calc 98.2 Estimated GFR > 60 Random Glucose 85 Fasting Glucose Calcium 9.4 Magnesium Total Bilirubin 0.9 Direct Bilirubin 0.4 AST 26 ALT 45 H Alkaline Phosphatase 81 D Total Protein 6.8 Albumin 4.4 Triglycerides Cholesterol LDL Cholesterol, Calc HDL Cholesterol Vitamin B12 Folate TSH Free T4 Lamotrigine Ethyl Alcohol < 10 COVID-19 ([facility]) COVID-19 Clin Com 05/22/21 05/23/21 05/23/21 14:25 07:25 07:25 WBC RBC Hgb Hct MCV MCH MCHC RDW Plt Count MPV Immature Gran % (Auto) Neut % (Auto) Lymph % (Auto) [place] % (Auto) Eos % (Auto) Baso % (Auto) Lymph # (Auto) [place] # (Auto) Eos # (Auto) Baso # (Auto) Abs Immat Gran (auto) Absolute Neuts (auto) Absolute Nucleated RBC Nucleated RBC % (auto) Sodium 140 Potassium 4.0 Chloride 106 Carbon Dioxide 26 Anion Gap 12 BUN 16 Creatinine 0.89 Estim Creat Clear Calc 94.9 Estimated GFR > 60 Random Glucose Fasting Glucose 91 Calcium 9.4 Magnesium 2.2 Total Bilirubin 0.6 Direct Bilirubin AST 26 ALT 43 H Alkaline Phosphatase 88 Total Protein 6.5 Albumin 4.2 Triglycerides 74 Cholesterol 167 LDL Cholesterol, Calc 109 HDL Cholesterol 44 Vitamin B12 757 Folate 19.9 TSH 0.63 Free T4 0.90 Lamotrigine Ethyl Alcohol COVID-19 ([facility]) Negative COVID-[employer] Com See Note 05/23/21 07:25 WBC RBC Hgb Hct MCV MCH MCHC RDW Plt Count MPV Immature Gran % (Auto) Neut % (Auto) Lymph % (Auto) [place] % (Auto) Eos % (Auto) Baso % (Auto) Lymph # (Auto) [place] # (Auto) Eos # (Auto) Baso # (Auto) Abs Immat Gran (auto) Absolute Neuts (auto) Absolute Nucleated RBC Nucleated RBC % (auto) Sodium Potassium Chloride Carbon Dioxide Anion Gap BUN Creatinine Estim Creat Clear Calc Estimated GFR Random Glucose Fasting Glucose Calcium Magnesium Total Bilirubin Direct Bilirubin AST ALT Alkaline Phosphatase Total Protein Albumin Triglycerides Cholesterol LDL Cholesterol, Calc HDL Cholesterol Vitamin B12 Folate TSH Free T4 Lamotrigine 7.2 Ethyl Alcohol COVID-19 ([facility]) COVID-19 Clin Com Airway Mallampati Class: III TM Dist: >3cm Neck ROM: Full Loose/Missing/Broken Teeth: No Heart: RRR Lungs: CTA Assessment and Plan Assessment Anesthesia Assessment: Anesthesia Plan Discussed and Chart Reviewed Final Anesthetic Review Family History of Problems with Anesthesia: No History of Problems with Anesthesia: No ASA Class: II Final Preanesthetic Review: Meds/Allgs Chart Reviewed, Consent Obtained/Reviewed and Anes Risks/Benef Reviewed Patient Risk: Low Procedure Risk: Low Anesthetic Plan Anesthetic Plan: GA Disposition: Standard PACU
[2021-06-17] MEDS: Gabapentin 300 MG CAPSULE PO ×2 (09:39→16:32)
[2021-06-17] MEDS: Escitalopram Oxalate 10 MG TABLET PO (09:39)
[2021-06-17] MEDS: Docusate Sodium 100 MG CAPSULE PO ×2 (09:39→22:34)
[2021-06-17] MEDS: ARIPiprazole 10 MG TABLET PO (09:39)
[2021-06-17] MEDS: Ibuprofen 400 MG TABLET PO ×3 (09:39→21:52)
[2021-06-17] MEDS: Finasteride 5 MG TABLET PO (09:39)
[2021-06-17] MEDS: lamoTRIgine 25 MG TABLET 150 MG PO (09:40)
[2021-06-17] MEDS: Clotrimazole 1 % Cream 15 GM TUBE 1 APPL TOPICAL ×2 (11:30→23:01)
[2021-06-17] MEDS: Hydrocortisone 2.5 % Rectal Cr 30 GM TUBE 1 APPL PR ×3 (11:30→23:04)
[2021-06-17] MEDS: Mupirocin 2 % Oint 22 GM TUBE 1 APPL TOPICAL (11:33)
[2021-06-17] MEDS: Acetaminophen 325 MG TABLET 650 MG PO (13:27)
[2021-06-17] MEDS: LORazepam 0.5 MG TABLET PO (14:10)
[2021-06-17] MEDS: polyethylene glycoL 3350 17 GM POWD.PACK PO (16:32)
--- NOTE | 2021-06-17 22:08 | HO.PSYCHPN ---
Subjective Subjective Date of Service: 06/17/21 Reason For Visit: Depression SI Subjective Notes: Conditional Voluntary Guardianship: No Medical Problems Affecting Mental Status: Yes Interim History: Patient has periods of arrests ability irritability question being triggered by milieu has been improving tolerated ECT with headache Review of Systems Review of Systems Nil new or acute Yes all other systems are reviewed and are negative Constitutional: Reports as per HPI and Reports no additional constitutional complaints Eyes: Reports as per HPI and Reports no additional eye complaints Reports system reviewed and no additional complaints, except as documented and Reports as per HPI Cardiovascular: Reports as per HPI and Reports no additional cardiovascular complaints Respiratory: Reports as per HPI and Reports no additional respiratory complaints Gastrointestinal: Reports as per HPI and Reports no additional gastrointestinal complaints Genitourinary: Reports no additional male genitourinary complaints and Reports as per HPI Musculoskeletal: Reports no additional musculoskeletal complaints, Reports as per HPI and Reports back pain ( Chronic) Reports system reviewed and no additional complaints, except as documented and Reports as per HPI Psychiatric: Reports no additional psychiatric complaints and Reports as per HPI Mental Status Exam Mental Status Exam Narrative: Has had periods of reactivity irritability Patient Appearance: Well Grooomed Patient Orientation: Person, Place and Time Level of Consciousness: Awake Patient Behavior: Appropriate and Good Eye Contact Behavior Comments: pt irritable triggered by another pt Mood Description: Withdrawn, Appropriate, Flat and Apprehensive Affect Description: Constricted, Anxious, Blunted and Apprehensive Patient Cognition Impaired: No Ability to Follow Directions: Good Speech Pattern: Clear and Delayed Memory Description: Intact Diagnostics Vital Signs (24Hr): Vital Signs - 24 hr 06/17/21 05:41 06/17/21 05:50 06/17/21 06:10 Temperature 97 F 97 F Pulse Rate 63 63 63 Respiratory Rate 20 20 Blood Pressure 142/81 H 142/81 H 142/81 H Pulse Oximetry 99 99 06/17/21 06:36 06/17/21 07:50 06/17/21 07:55 Temperature 97.3 F 97.9 F Pulse Rate 63 66 66 Respiratory Rate 20 16 16 Blood Pressure 168/81 H 182/97 H 175/93 H Pulse Oximetry 98 95 96 06/17/21 08:00 06/17/21 08:05 06/17/21 08:20 Temperature 97.8 F Pulse Rate 65 66 63 Respiratory Rate 20 16 16 Blood Pressure 180/87 H 171/83 H 163/86 H Pulse Oximetry 96 96 95 08/02/21 08:35 06/17/21 09:00 06/17/21 09:55 Temperature 98.1 F Pulse Rate 63 65 63 Respiratory Rate 16 Blood Pressure 162/83 H 164/81 H 150/76 H Pulse Oximetry 95 97 06/17/21 14:00 06/17/21 18:00 Temperature 97.9 F 97.3 F Pulse Rate 77 79 Respiratory Rate Blood Pressure 135/69 121/61 Pulse Oximetry 97 93 Body Mass Index 29.5 Labs Results: 05/22/21 12:22 05/23/21 07:25 Imaging Radiology Impressions: ITS Impressions Head CT 05/24/21 15:15 IMPRESSION: 1. Status post prior right craniotomy with scattered right periventricular white matter gliosis and compensatory right ventricular dilatation.. 2. Generalized atrophy with ventricular dilatation and prominent cortical sulci and fissures and cisterns. No edema or mass effect. 3. No intracranial hemorrhage or hematoma or extra-axial fluid collection. Medications Medications Current Medications Generic Name Dose Route Start Last Admin Trade Name Freq PRN Reason Stop Dose Admin Acetaminophen 650 mg 05/22/21 17:28 06/17/21 13:27 Acetaminophen 325 Mg Tablet PO 650 mg Q6H PRN Administration Headache/Pain Mild Scale (1-3) Al Hydroxide/Mg Hydroxide 30 ml 05/22/21 17:28 Magnesium Hydrox/Alum Hydrox 30 Ml Oral.Susp PO Q6H PRN Heartburn/Nausea Albuterol Sulfate 2 puff 05/22/21 22:00 06/17/21 08:09 Albuterol Sulfate 90 Mcg 8 Gm Inhaler INHALE 2 puff Q6H PRN Administration Shortness of Breath/Wheezing Amlodipine Besylate 7.5 mg 06/13/21 09:00 06/17/21 05:41 Amlodipine Besylate 2.5 Mg Tablet PO 7.5 mg DAILY TAZ Administration Protocol Aripiprazole 10 mg 06/14/21 09:00 06/17/21 09:39 Aripiprazole 10 Mg Tablet PO 10 mg DAILY TAZ Administration Clotrimazole 1 appl 06/14/21 11:30 06/17/21 11:30 Clotrimazole 1 % Cream 15 Gm Tube TOPICAL 1 appl BID TAZ Administration Protocol Docusate Sodium 100 mg 05/23/21 09:00 06/17/21 09:39 Docusate Sodium 100 Mg Capsule PO 100 mg BID TAZ Administration Escitalopram Oxalate 10 mg 06/14/21 09:00 06/17/21 09:39 Escitalopram Oxalate 10 Mg Tablet PO 10 mg DAILY TAZ Administration Finasteride 5 mg 05/23/21 09:00 06/17/21 09:39 Finasteride 5 Mg Tablet PO 5 mg DAILY TAZ Administration Gabapentin 300 mg 06/13/21 08:30 06/17/21 16:32 Gabapentin 300 Mg Capsule PO 300 mg BID@0830,1630 TAZ Administration Hydrocortisone 1 appl 06/09/21 10:03 06/17/21 15:16 Hydrocortisone 2.5 % Rectal Cr 30 Gm Tube [place] 1 appl 6XD PRN Administration after each bowel movement Ibuprofen 400 mg 05/27/21 09:30 06/17/21 21:52 Ibuprofen 400 Mg Tablet PO 400 mg Q6H PRN Administration Pain, Moderate (Pain Scale 4-6 Lamotrigine 150 mg 06/08/21 09:00 06/17/21 09:40 Lamotrigine 25 Mg Tablet PO 150 mg DAILY TAZ Administration Latanoprost 1 drop 05/27/21 21:00 06/16/21 21:23 Latanoprost 0.005 % Ophth No 2.5 Ml Drops EYE-BOTH 1 drop BEDTIME TAZ Administration Lidocaine 1 patch 05/30/21 09:00 06/17/21 11:31 Lidocaine 4 % Patch Adh..Patch TRANSDERMA Not Given DAILY TAZ Protocol Lisinopril 40 mg 06/04/21 09:00 06/17/21 05:41 Lisinopril 40 Mg Tablet PO 40 mg DAILY TAZ Administration Protocol Lorazepam 0.5 mg 06/16/21 17:08 06/17/21 14:10 Lorazepam 0.5 Mg Tablet PO 0.5 mg Q6H PRN Administration Anxiety Magnesium Hydroxide 30 ml 05/22/21 17:28 06/05/21 14:39 Milk Of Magnesia 30 Ml Oral.Susp PO 30 ml DAILY PRN Administration Constipation Melatonin 6 mg 05/28/21 21:00 06/16/21 21:23 Melatonin 3 Mg Tablet PO 6 mg BEDTIME TAZ Administration Mirtazapine 30 mg 06/10/21 21:00 06/16/21 21:23 Mirtazapine 15 Mg Tablet PO 30 mg BEDTIME TAZ Administration Multivitamins/Minerals 1 tab 05/23/21 09:00 06/17/21 09:39 Multivitamin With Minerals Tablet PO 1 tab DAILY TAZ Administration Mupirocin 1 appl 06/14/21 15:00 06/17/21 18:17 Mupirocin 2 % Oint 22 Gm Tube TOPICAL Not Given TID [facility] Protocol Ondansetron HCl 4 mg 05/28/21 13:46 06/17/21 14:10 Ondansetron Odt 4 Mg Tab.Rapdis TRANSLINGU 4 mg Q8H PRN Administration Nausea and Vomiting Polyethylene Glycol 17 gm 05/25/21 17:00 06/17/21 16:32 Polyethylene Glycol 3350 17 Gm Powd.Pack PO 17 gm DAILY@1700 TAZ Administration Quetiapine Fumarate 25 mg 06/13/21 21:22 Quetiapine Fumarate 25 Mg Tablet PO Q4H PRN anxiety/restlessness Sodium Biphosphate/Sodium Phosphate 118 ml 05/22/21 21:38 Sodium Phosphate,[place]-Dibasic 133 Ml Enema [place] DAILY PRN Constipation Trazodone HCl 300 mg 05/22/21 22:00 06/16/21 21:22 Trazodone Hcl 100 Mg Tablet PO 300 mg BEDTIME TAZ Administration Allergies Allergies Allergy/AdvReac Type Severity Reaction Status Date / Time fentanyl [FENTANYL] Allergy Intermediate unknown Verified 05/22/21 11:43 Assessment & Plan Assessment & Plan (1) Major depressive disorder, recurrent severe without psychotic features: Status: Acute Code(s): F33.2 - Major depressive disorder, recurrent severe without psychotic features Assessment and Plan: cont ect abilify mirtazapine lexapro abilify hold ect schedule maintence d/c planning (2) Cognitive and neurobehavioral dysfunction following brain injury: Status: Acute Code(s): G31.89 - Other specified degenerative diseases of nervous system; F09 - Unspecified mental disorder due to known physiological condition; S06.9X9S - Unspecified intracranial injury with loss of consciousness of unspecified duration, sequela Assessment and Plan: CONTINUE LAMICTAL ABILIFY ADD SEROQUEL P.R.N. FOR AGITATION (3) HTN (hypertension): Status: Acute Code(s): I10 - Essential (primary) hypertension Assessment and Plan: Patient more irritability dysphoria unclear if related to other patient on the unit to any withdrawal symptoms from coming off gabapentin and Lamictal gabapentin 300 t.i.d. Lamictal increased to 150 taper Lexapro taper Abilify consider Seroquel Ativan restarted ECT for tomorrow monitor response Looking to go to a family structured setting supported by DDS patient aware this may take at least 6 months CONT PLAN OF CARE coordinate outpatient treatment including individual counseling more social and cognitive engagement nicolasa Greater than 50% of the session was spent on counseling and/or coordination of care Reason for contiued inpatient stay Substantial Risk for: harm to self and rapid decompensation
[2021-06-17] MEDS: Mirtazapine 15 MG TABLET 30 MG PO (22:33)
[2021-06-17] MEDS: traZODone HCL 100 MG TABLET 300 MG PO (22:33)
[2021-06-17] MEDS: Latanoprost 0.005 % Ophth Sol 2.5 ML DROPS 1 DROP EYE-BOTH (22:34)
[2021-06-17] MEDS: Melatonin 3 MG TABLET 6 MG PO (22:34)
[2021-06-18] MEDS: Acetaminophen 325 MG TABLET 650 MG PO ×2 (04:54→22:15)
[2021-06-18] MEDS: lamoTRIgine 25 MG TABLET 150 MG PO (09:14)
[2021-06-18] MEDS: Gabapentin 300 MG CAPSULE PO ×2 (09:16→16:14)
[2021-06-18 09:18] VITALS: BP 140/68; PULSE 62
[2021-06-18] MEDS: amLODIPine Besylate 2.5 MG TABLET 7.5 MG PO (09:18)
[2021-06-18] MEDS: Docusate Sodium 100 MG CAPSULE PO ×2 (09:18→20:50)
[2021-06-18 09:21] VITALS: BP 140/68; PULSE 62
[2021-06-18] MEDS: ARIPiprazole 10 MG TABLET PO (09:21)
[2021-06-18] MEDS: lisinopriL 40 MG TABLET PO (09:21)
[2021-06-18] MEDS: Escitalopram Oxalate 10 MG TABLET PO (09:22)
[2021-06-18] MEDS: Finasteride 5 MG TABLET PO (09:22)
[2021-06-18] MEDS: Clotrimazole 1 % Cream 15 GM TUBE 1 APPL TOPICAL ×2 (09:28→20:55)
[2021-06-18] MEDS: Mupirocin 2 % Oint 22 GM TUBE 1 APPL TOPICAL ×3 (10:06→20:56)
[2021-06-18] MEDS: polyethylene glycoL 3350 17 GM POWD.PACK PO (15:13)
[2021-06-18 18:00] VITALS: BP 139/68; PULSE 73; RESP 16; TEMP 36.6; O2SAT 96
--- NOTE | 2021-06-18 20:47 | P.PNPSI_ITS ---
Subjective Subjective Date of Service: 06/18/21 Reason For Visit: Depression SI Subjective Notes: Conditional Voluntary Healthcare Proxy: No Guardianship: No Medication Compliance: Yes Side effects from medications: No Review of Systems Acute medical concerns: No Medical Review of Systems: unchanged Mental Status Exam Mental Status Exam Narrative: Has had periods of reactivity irritability Patient Appearance: Well Grooomed Patient Orientation: Person, Place and Time Level of Consciousness: Awake Patient Behavior: Appropriate and Good Eye Contact Behavior Comments: pt irritable triggered by another pt Mood Description: Withdrawn, Appropriate, Flat and Apprehensive Affect Description: Constricted, Anxious, Blunted and Apprehensive Patient Cognition Impaired: No Ability to Follow Directions: Good Speech Pattern: Clear and Delayed Memory Description: Intact Diagnostics Vital Signs (24Hr): Vital Signs - 24 hr 06/18/21 09:18 06/18/21 09:21 06/18/21 18:00 Temperature 97.9 F Pulse Rate 62 62 73 Respiratory Rate 16 Blood Pressure 140/68 H 140/68 H 139/68 Pulse Oximetry 96 Body Mass Index 29.5 Labs Results: 05/22/21 12:22 05/23/21 07:25 Imaging Radiology Impressions: ITS Impressions Head CT 05/24/21 15:15 IMPRESSION: 1. Status post prior right craniotomy with scattered right periventricular white matter gliosis and compensatory right ventricular dilatation.. 2. Generalized atrophy with ventricular dilatation and prominent cortical sulci and fissures and cisterns. No edema or mass effect. 3. No intracranial hemorrhage or hematoma or extra-axial fluid collection. Medications Medications Current Medications Generic Name Dose Route Start Last Admin Trade Name Freq PRN Reason Stop Dose Admin Acetaminophen 650 mg 05/22/21 17:28 06/18/21 04:54 Acetaminophen 325 Mg Tablet PO 650 mg Q6H PRN Administration Headache/Pain Mild Scale (1-3) Al Hydroxide/Mg Hydroxide 30 ml 05/22/21 17:28 Magnesium Hydrox/Alum Hydrox 30 Ml Oral.Susp PO Q6H PRN Heartburn/Nausea Albuterol Sulfate 2 puff 05/22/21 22:00 06/17/21 08:09 Albuterol Sulfate 90 Mcg 8 Gm Inhaler INHALE 2 puff Q6H PRN Administration Shortness of Breath/Wheezing Amlodipine Besylate 7.5 mg 06/13/21 09:00 06/18/21 09:18 Amlodipine Besylate 2.5 Mg Tablet PO 7.5 mg DAILY TAZ Administration Protocol Aripiprazole 7.5 mg 06/19/21 09:00 Aripiprazole 5 Mg Tablet PO DAILY TAZ Clotrimazole 1 appl 06/14/21 11:30 06/18/21 09:28 Clotrimazole 1 % Cream 15 Gm Tube TOPICAL 1 appl BID TAZ Administration Protocol Docusate Sodium 100 mg 05/23/21 09:00 06/18/21 09:18 Docusate Sodium 100 Mg Capsule PO 100 mg BID TAZ Administration Escitalopram Oxalate 10 mg 06/14/21 09:00 06/18/21 09:22 Escitalopram Oxalate 10 Mg Tablet PO 10 mg DAILY TAZ Administration Finasteride 5 mg 05/23/21 09:00 06/18/21 09:22 Finasteride 5 Mg Tablet PO 5 mg DAILY TAZ Administration Gabapentin 300 mg 06/13/21 08:30 06/18/21 16:14 Gabapentin 300 Mg Capsule PO 300 mg BID@0830,1630 TAZ Administration Hydrocortisone 1 appl 06/09/21 10:03 06/17/21 23:04 Hydrocortisone 2.5 % Rectal Cr 30 Gm Tube [place] 1 appl 6XD PRN Administration after each bowel movement Ibuprofen 400 mg 05/27/21 09:30 06/17/21 21:52 Ibuprofen 400 Mg Tablet PO 400 mg Q6H PRN Administration Pain, Moderate (Pain Scale 4-6 Lamotrigine 150 mg 06/08/21 09:00 06/18/21 09:14 Lamotrigine 25 Mg Tablet PO 150 mg DAILY TAZ Administration Latanoprost 1 drop 05/27/21 21:00 06/17/21 22:34 Latanoprost 0.005 % Ophth No 2.5 Ml Drops EYE-BOTH 1 drop BEDTIME TAZ Administration Lidocaine 1 patch 05/30/21 09:00 06/18/21 13:52 Lidocaine 4 % Patch Adh..Patch TRANSDERMA Not Given DAILY TAZ Protocol Lisinopril 40 mg 06/04/21 09:00 06/18/21 09:21 Lisinopril 40 Mg Tablet PO 40 mg DAILY TAZ Administration Protocol Lorazepam 0.5 mg 06/16/21 17:08 06/17/21 14:10 Lorazepam 0.5 Mg Tablet PO 0.5 mg Q6H PRN Administration Anxiety Magnesium Hydroxide 30 ml 05/22/21 17:28 06/05/21 14:39 Milk Of Magnesia 30 Ml Oral.Susp PO 30 ml DAILY PRN Administration Constipation Melatonin 6 mg 05/28/21 21:00 06/17/21 22:34 Melatonin 3 Mg Tablet PO 6 mg BEDTIME TAZ Administration Mirtazapine 30 mg 06/10/21 21:00 06/17/21 22:33 Mirtazapine 15 Mg Tablet PO 30 mg BEDTIME TAZ Administration Multivitamins/Minerals 1 tab 05/23/21 09:00 06/18/21 09:16 Multivitamin With Minerals Tablet PO 1 tab DAILY TAZ Administration Mupirocin 1 appl 06/14/21 15:00 06/18/21 16:08 Mupirocin 2 % Oint 22 Gm Tube TOPICAL 1 appl TID TAZ Administration Protocol Ondansetron HCl 4 mg 05/28/21 13:46 06/17/21 14:10 Ondansetron Odt 4 Mg Tab.Rapdis TRANSLINGU 4 mg Q8H PRN Administration Nausea and Vomiting Polyethylene Glycol 17 gm 05/25/21 17:00 06/18/21 15:13 Polyethylene Glycol 3350 17 Gm Powd.Pack PO 17 gm DAILY@1700 TAZ Administration Quetiapine Fumarate 25 mg 06/13/21 21:22 Quetiapine Fumarate 25 Mg Tablet PO Q4H PRN anxiety/restlessness Sodium Biphosphate/Sodium Phosphate 118 ml 05/22/21 21:38 Sodium Phosphate,[place]-Dibasic 133 Ml Enema [place] DAILY PRN Constipation Trazodone HCl 300 mg 05/22/21 22:00 06/17/21 22:33 Trazodone Hcl 100 Mg Tablet PO 300 mg BEDTIME TAZ Administration Allergies Allergies Allergy/AdvReac Type Severity Reaction Status Date / Time fentanyl [FENTANYL] Allergy Intermediate unknown Verified 05/22/21 11:43 Assessment & Plan Assessment & Plan (1) Major depressive disorder, recurrent severe without psychotic features: Status: Acute Code(s): F33.2 - Major depressive disorder, recurrent severe without psychotic features Assessment and Plan: cont ect abilify mirtazapine lexapro abilify hold ect schedule maintence d/c planning (2) Cognitive and neurobehavioral dysfunction following brain injury: Status: Acute Code(s): G31.89 - Other specified degenerative diseases of nervous system; F09 - Unspecified mental disorder due to known physiological condition; S06.9X9S - Unspecified intracranial injury with loss of consciousness of unspecified duration, sequela Assessment and Plan: CONTINUE LAMICTAL ABILIFY ADD SEROQUEL P.R.N. FOR AGITATION (3) HTN (hypertension): Status: Acute Code(s): I10 - Essential (primary) hypertension Assessment and Plan: Patient more irritability dysphoria unclear if related to other patient on the unit to any withdrawal symptoms from coming off gabapentin and Lamictal gabapentin 300 t.i.d. Lamictal increased to 150 taper Lexapro taper Abilify consider Seroquel Ativan restarted ECT for tomorrow monitor response Looking to go to a family structured setting supported by DDS patient aware this may take at least 6 months CONT PLAN OF CARE coordinate outpatient treatment including individual counseling more social and cognitive engagement nicolasa Greater than 50% of the session was spent on counseling and/or coordination of care Reason for contiued inpatient stay Substantial Risk for: harm to self and rapid decompensation
[2021-06-18] MEDS: Latanoprost 0.005 % Ophth Sol 2.5 ML DROPS 1 DROP EYE-BOTH (20:48)
[2021-06-18] MEDS: Melatonin 3 MG TABLET 6 MG PO (20:49)
[2021-06-18] MEDS: Mirtazapine 15 MG TABLET 30 MG PO (20:49)
[2021-06-18] MEDS: LORazepam 0.5 MG TABLET PO (20:50)
[2021-06-18] MEDS: traZODone HCL 100 MG TABLET 300 MG PO (20:50)
[2021-06-18] MEDS: Albuterol Sulfate 90 MCG 8 GM INHALER 2 PUFF INHALE (21:23)
[2021-06-18] MEDS: Hydrocortisone 2.5 % Rectal Cr 30 GM TUBE 1 APPL PR (23:06)
[2021-06-19 06:00] VITALS: BP 175/83; PULSE 57; RESP 16; TEMP 36.3; O2SAT 98
[2021-06-19 06:41] LABS: COVID-19 Test Negative (Negative)
[2021-06-19 09:07] VITALS: BP 176/84; PULSE 74; RESP 16; TEMP 36.5; O2SAT 99
[2021-06-19] MEDS: ARIPiprazole 5 MG TABLET 7.5 MG PO (09:24)
[2021-06-19] MEDS: Gabapentin 300 MG CAPSULE PO ×2 (09:24→21:00)
[2021-06-19] MEDS: Escitalopram Oxalate 10 MG TABLET PO (09:24)
[2021-06-19 09:25] VITALS: BP 176/84; PULSE 74
[2021-06-19] MEDS: lamoTRIgine 25 MG TABLET 150 MG PO (09:25)
[2021-06-19] MEDS: lisinopriL 40 MG TABLET PO (09:25)
[2021-06-19] MEDS: Finasteride 5 MG TABLET PO (09:26)
[2021-06-19] MEDS: amLODIPine Besylate 2.5 MG TABLET 7.5 MG PO (09:26)
[2021-06-19] MEDS: Acetaminophen 325 MG TABLET 650 MG PO (09:34)
[2021-06-19] MEDS: LORazepam 0.5 MG TABLET PO (12:43)
--- NOTE | 2021-06-19 15:00 | P.PNPSI_ITS ---
Subjective Subjective Date of Service: 06/19/21 Reason For Visit: Depression SI Interim History: The patient had to the meeting with all his providers, he denies side effects with the current treatment and he reported improvement of his mood. No evidence of safety concerns at this moment Medication Compliance: Yes Side effects from medications: No Attending Groups: Yes Review of Systems Acute medical concerns: No Medical Review of Systems: unchanged Mental Status Exam Mental Status Exam Patient Appearance: Well Grooomed Patient Orientation: Person, Place, Time and Situation Level of Consciousness: Awake and Appropriate Patient Behavior: Cooperative Mood Description: Calm and Withdrawn Affect Description: Constricted Patient Cognition Impaired: No Ability to Follow Directions: Good Speech Pattern: Clear Memory Description: Intact Hallucinations: None Delusions: Not Present Thought Process: Goal Oriented Thought Content: positive for Circumstantial Judgement: Fair Diagnostics Vital Signs (24Hr): Vital Signs - 24 hr 06/18/21 18:00 06/19/21 06:00 06/19/21 09:07 Temperature 97.9 F 97.3 F 97.7 F Pulse Rate 73 57 74 Respiratory Rate 16 16 16 Blood Pressure 139/68 175/83 H 176/84 H Pulse Oximetry 96 98 99 06/19/21 09:25 Temperature Pulse Rate 74 Respiratory Rate Blood Pressure 176/84 H Pulse Oximetry Body Mass Index 29.5 Labs Results: 05/22/21 12:22 05/23/21 07:25 Labs: Laboratory Results - last 48 hr 06/19/21 06:10 COVID-19 ([facility]) Negative COVID-19 Clin Com See Note Imaging Radiology Impressions: ITS Impressions Head CT 05/24/21 15:15 IMPRESSION: 1. Status post prior right craniotomy with scattered right periventricular white matter gliosis and compensatory right ventricular dilatation.. 2. Generalized atrophy with ventricular dilatation and prominent cortical sulci and fissures and cisterns. No edema or mass effect. 3. No intracranial hemorrhage or hematoma or extra-axial fluid collection. Medications Medications Current Medications Generic Name Dose Route Start Last Admin Trade Name Freq PRN Reason Stop Dose Admin Acetaminophen 650 mg 05/22/21 17:28 06/19/21 09:34 Acetaminophen 325 Mg Tablet PO 650 mg Q6H PRN Administration Headache/Pain Mild Scale (1-3) Al Hydroxide/Mg Hydroxide 30 ml 05/22/21 17:28 Magnesium Hydrox/Alum Hydrox 30 Ml Oral.Susp PO Q6H PRN Heartburn/Nausea Albuterol Sulfate 2 puff 05/22/21 22:00 06/18/21 21:23 Albuterol Sulfate 90 Mcg 8 Gm Inhaler INHALE 2 puff Q6H PRN Administration Shortness of Breath/Wheezing Amlodipine Besylate 7.5 mg 06/13/21 09:00 06/19/21 09:26 Amlodipine Besylate 2.5 Mg Tablet PO 7.5 mg DAILY TAZ Administration Protocol Aripiprazole 7.5 mg 06/19/21 09:00 06/19/21 09:24 Aripiprazole 5 Mg Tablet PO 7.5 mg DAILY TAZ Administration Clotrimazole 1 appl 06/14/21 11:30 06/19/21 13:17 Clotrimazole 1 % Cream 15 Gm Tube TOPICAL Not Given BID [facility] Protocol Docusate Sodium 100 mg 05/23/21 09:00 06/19/21 09:30 Docusate Sodium 100 Mg Capsule PO Not Given BID [facility] Escitalopram Oxalate 10 mg 06/14/21 09:00 06/19/21 09:24 Escitalopram Oxalate 10 Mg Tablet PO 10 mg DAILY TAZ Administration Finasteride 5 mg 05/23/21 09:00 06/19/21 09:26 Finasteride 5 Mg Tablet PO 5 mg DAILY TAZ Administration Gabapentin 300 mg 06/13/21 08:30 06/19/21 09:24 Gabapentin 300 Mg Capsule PO 300 mg BID@0830,1630 TAZ Administration Hydrocortisone 1 appl 06/09/21 10:03 06/18/21 23:06 Hydrocortisone 2.5 % Rectal Cr 30 Gm Tube [place] 1 appl 6XD PRN Administration after each bowel movement Ibuprofen 400 mg 05/27/21 09:30 06/17/21 21:52 Ibuprofen 400 Mg Tablet PO 400 mg Q6H PRN Administration Pain, Moderate (Pain Scale 4-6 Lamotrigine 150 mg 06/08/21 09:00 06/19/21 09:25 Lamotrigine 25 Mg Tablet PO 150 mg DAILY TAZ Administration Latanoprost 1 drop 05/27/21 21:00 06/18/21 20:48 Latanoprost 0.005 % Ophth No 2.5 Ml Drops EYE-BOTH 1 drop BEDTIME TAZ Administration Lidocaine 1 patch 05/30/21 09:00 06/19/21 09:31 Lidocaine 4 % Patch Adh..Patch TRANSDERMA Not Given DAILY [facility] Protocol Lisinopril 40 mg 06/04/21 09:00 06/19/21 09:25 Lisinopril 40 Mg Tablet PO 40 mg DAILY TAZ Administration Protocol Lorazepam 0.5 mg 06/16/21 17:08 06/19/21 12:43 Lorazepam 0.5 Mg Tablet PO 0.5 mg Q6H PRN Administration Anxiety Magnesium Hydroxide 30 ml 05/22/21 17:28 06/05/21 14:39 Milk Of Magnesia 30 Ml Oral.Susp PO 30 ml DAILY PRN Administration Constipation Melatonin 6 mg 05/28/21 21:00 06/18/21 20:49 Melatonin 3 Mg Tablet PO 6 mg BEDTIME TAZ Administration Mirtazapine 30 mg 06/10/21 21:00 06/18/21 20:49 Mirtazapine 15 Mg Tablet PO 30 mg BEDTIME TAZ Administration Multivitamins/Minerals 1 tab 05/23/21 09:00 06/19/21 09:25 Multivitamin With Minerals Tablet PO 1 tab DAILY TAZ Administration Mupirocin 1 appl 06/14/21 15:00 06/19/21 09:31 Mupirocin 2 % Oint 22 Gm Tube TOPICAL Not Given TID [facility] Protocol Ondansetron HCl 4 mg 05/28/21 13:46 06/17/21 14:10 Ondansetron Odt 4 Mg Tab.Rapdis TRANSLINGU 4 mg Q8H PRN Administration Nausea and Vomiting Polyethylene Glycol 17 gm 05/25/21 17:00 06/18/21 15:13 Polyethylene Glycol 3350 17 Gm Powd.Pack PO 17 gm DAILY@1700 TAZ Administration Quetiapine Fumarate 25 mg 06/13/21 21:22 Quetiapine Fumarate 25 Mg Tablet PO Q4H PRN anxiety/restlessness Sodium Biphosphate/Sodium Phosphate 118 ml 05/22/21 21:38 Sodium Phosphate,[place]-Dibasic 133 Ml Enema [place] DAILY PRN Constipation Trazodone HCl 300 mg 05/22/21 22:00 06/18/21 20:50 Trazodone Hcl 100 Mg Tablet PO 300 mg BEDTIME TAZ Administration Allergies Allergies Allergy/AdvReac Type Severity Reaction Status Date / Time fentanyl [FENTANYL] Allergy Intermediate unknown Verified 05/22/21 11:43 Assessment & Plan Assessment & Plan (1) Major depressive disorder, recurrent severe without psychotic features: Status: Acute Code(s): F33.2 - Major depressive disorder, recurrent severe without psychotic features Assessment and Plan: cont ect abilify mirtazapine lexapro abilify hold ect schedule maintence d/c planning (2) Cognitive and neurobehavioral dysfunction following brain injury: Status: Acute Code(s): G31.89 - Other specified degenerative diseases of nervous system; F09 - Unspecified mental disorder due to known physiological condition; S06.9X9S - Unspecified intracranial injury with loss of consciousness of unspecified duration, sequela Assessment and Plan: CONTINUE LAMICTAL ABILIFY ADD SEROQUEL P.R.N. FOR AGITATION (3) HTN (hypertension): Status: Acute Code(s): I10 - Essential (primary) hypertension Assessment and Plan: Patient more irritability dysphoria unclear if related to other patient on the unit to any withdrawal symptoms from coming off gabapentin and Lamictal gabapentin 300 t.i.d. Lamictal increased to 150 taper Lexapro taper Abilify consider Seroquel Ativan restarted Looking to go to a family structured setting supported by DDS patient aware this may take at least 6 months CONT PLAN OF CARE coordinate outpatient treatment including individual counseling more social and cognitive engagement nicolasa Discharge for tomorrow Greater than 50% of the session was spent on counseling and/or coordination of care Reason for contiued inpatient stay Substantial Risk for: harm to self, inability to function, rapid decompensation and med/psych decompensation
[2021-06-19] MEDS: polyethylene glycoL 3350 17 GM POWD.PACK PO (16:46)
[2021-06-19 18:00] VITALS: BP 156/76; PULSE 86; RESP 18; TEMP 36; O2SAT 97
[2021-06-19] MEDS: traZODone HCL 100 MG TABLET 300 MG PO (20:59)
[2021-06-19] MEDS: Mirtazapine 15 MG TABLET 30 MG PO (20:59)
[2021-06-19] MEDS: lamoTRIgine 100 MG TABLET PO (21:00)
[2021-06-19] MEDS: Melatonin 3 MG TABLET 6 MG PO (21:00)
[2021-06-19] MEDS: Clotrimazole 1 % Cream 15 GM TUBE 1 APPL TOPICAL (21:01)
[2021-06-19] MEDS: Latanoprost 0.005 % Ophth Sol 2.5 ML DROPS 1 DROP EYE-BOTH (21:01)
[2021-06-19] MEDS: Mupirocin 2 % Oint 22 GM TUBE 1 APPL TOPICAL (21:02)
[2021-06-20 06:00] VITALS: BP 167/83; PULSE 58; RESP 20; TEMP 36.4; O2SAT 96
[2021-06-20 07:00] VITALS: BMI 30.5
[2021-06-20] MEDS: Gabapentin 300 MG CAPSULE PO (09:24)
[2021-06-20] MEDS: amLODIPine Besylate 2.5 MG TABLET 7.5 MG PO (09:24)
[2021-06-20] MEDS: lisinopriL 40 MG TABLET PO (09:24)
[2021-06-20] MEDS: ARIPiprazole 5 MG TABLET 7.5 MG PO (09:24)
[2021-06-20] MEDS: lamoTRIgine 100 MG TABLET PO (09:24)
[2021-06-20] MEDS: Escitalopram Oxalate 10 MG TABLET PO (09:24)
[2021-06-20] MEDS: Docusate Sodium 100 MG CAPSULE PO (09:24)
[2021-06-20] MEDS: Lidocaine 4 % Patch ADH..PATCH 1 PATCH TRANSDERMA (09:34)
[2021-06-20] MEDS: Finasteride 5 MG TABLET PO (09:42)
[2021-06-20] MEDS: Clotrimazole 1 % Cream 15 GM TUBE 1 APPL TOPICAL (09:42)
[2021-06-20] MEDS: Mupirocin 2 % Oint 22 GM TUBE 1 APPL TOPICAL (09:42)
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
== END 2021-06-20 13:20 | disposition other institution (70) | DRG 885 ==
LOC: HO.ED 15:50 → HO.PGERI 16:04
PROVIDERS: Physician Assistant; Psychiatry & Neurology Psychiatry; Admitting Provider Psychiatry & Neurology Psychiatry; Emergency Provider Emergency Medicine; PCP Internal Medicine; Visit Provider Psychiatry & Neurology Psychiatry
PROC: GZB4ZZZ Other Electroconvulsive Therapy (ICD-10-PCS; CPT 90870; principal; 2021-05-28 10:30)
PROC: (CPT 90870; principal; 2021-06-17 07:00)
DX: F33.2 Major depressive disorder, recurrent severe without psychotic features (principal); R45.851 Suicidal ideations; I10 Essential (primary) hypertension; F10.21 Alcohol dependence, in remission; Z20.822 Contact with and (suspected) exposure to COVID-19; Z87.820 Personal history of traumatic brain injury; Z79.899 Other long term (current) drug therapy
CPT/HCPCS: 36415; 70450; 80053; 80061; 80076; 80175; 82077; 82607; 82746; 83735; 84439; 84443; 85025; 87635; 90870; 93005; 96372; 97116; 97162; 97530; 99232; 99285; J0330; J1885; J2250; J2405

== ENCOUNTER 2021-05-24 13:54 | Outpatient (REF) | payer MEDICARE, MEDICAID, SELFPAY | END 2021-05-24 13:55 | disposition home or self-care (01) | LOC: HO.HAP 13:54 | PROVIDERS: Visit Provider Internal Medicine | DX: Z13.89 Encounter for screening for other disorder (principal) ==

== ENCOUNTER 2021-07-03 06:47 | Day surgery (SDC) | payer MEDICARE, MEDICAID, SELFPAY ==
[2021-07-03] VITALS (9 sets, daily range): BP systolic 147–174; BP diastolic 69–92; PULSE 62–72; RESP 16–20; TEMP 36.4–36.9; O2SAT 93–99
--- NOTE | 2021-07-03 06:54 | MHC.SHP ---
Pre-Procedural Eval Section A Date of Service: 07/03/21 The patient is an INPATIENT: No Changes since office visit: No Cold of Flu in the past 2 weeks, No New Medical Problems, No Changes in Medication and No Patient answered all questions The History & Physical has been completed within 30 days and I have reviewed it.: Yes Section B Chief Complaint: depression Details of Present Illness: The patient has chronic depression with sequelae of TBI. Stable at this time Relevant Family History (Specify if Yes): Yes Relevant Social History: None Present Medications: see Short Stay Collaborative assessment Medical History: No relevant PMH History of Previous Operations: No relevant previous surgery Allergies: Allergies Allergy/AdvReac Type Severity Reaction Status Date / Time fentanyl [FENTANYL] Allergy Intermediate unknown Verified 05/22/21 11:43 Review of Systems Sugical H&P ROS: Negative: Constitution, Cardiovascular, Respiratory, Neurological, Psychiatric, Hem-Onc, Allergic/Immunologic, Gastrointestinal, Genitourinary, Musculoskeletal, Integumentary, Endocrine and Eyes/Ears/Nose/Throat Exam Surgical H&P Exam: Normal: HEENT, Normal: Heart, Normal: Lungs, Normal: Extremities, Normal: Abdomen, Normal: Skin and Normal: Neurological Plan Diagnosis/Plan: Unchanged I have reviewed the history and physical and performed a pertinent physical examination on my patient. No changes have occurred unless specified.
--- NOTE | 2021-07-03 07:45 | HO.ANESPROP2 ---
FORMERLY [facility] Active Problems Active Problems: All Active Problems (Updated 05/24/21 @ 23:38 by Addy Haskins MD) Major depressive disorder, recurrent severe without psychotic features (Acute) Cognitive and neurobehavioral dysfunction following brain injury (Acute) HTN (hypertension) (Acute) Past Medical History Medical History Alcohol use disorder, severe, in sustained remission Cognitive and neurobehavioral dysfunction following brain injury Hernia HTN (hypertension) Major depressive disorder, recurrent Major depressive disorder, recurrent severe without psychotic features Family History Family history of problems with anesthesia: No Surgical History Surgical History H/O brain surgery History of hip replacement S/P cholecystectomy History of Problems with Anesthesia: No Social History Social History Household Members: Other Household Members Other:: 3 housemates in halfway Housing: Other Housing Other:: Intermediate Patient Tobacco Use Status: Never used Tobacco Advance Directives: Yes Advance Directives on File: Yes Advance Directives Date on File: 05/27/19 service: No Sexual orientation: Straight/Heterosexual Meds Allergies Allergy/AdvReac Type Severity Reaction Status Date / Time fentanyl [FENTANYL] Allergy Intermediate unknown Verified 05/22/21 11:43 Active Medications: Current Medications Generic Name Dose Route Start Last Admin Trade Name Freq PRN Reason Stop Dose Admin Lactated Ringer's 1,000 mls @ 50 mls/hr 07/03/21 07:45 Lr IVCONT .Q20H TAZ Home Medications Medication Instructions Recorded Confirmed Last Taken Type Tylenol 650 mg PO Q6-8H PRN 05/22/21 05/22/21 Unknown History albuterol 90 mcg/actuation aerosol See Rx Instructions .ROUTE .COMPLEX 05/22/21 05/22/21 Unknown History inhaler clotrimazole 1 % topical solution See Rx Instructions .ROUTE 05/22/21 05/22/21 Unknown History .COMPLEX PRN dextromethorphan-guaifenesin 10 10 ml PO Q6-8H PRN 05/22/21 05/22/21 Unknown History mg-200 mg/5 mL oral liquid docusate sodium 100 mg capsule 1 cap PO BID 05/22/21 05/22/21 Unknown History docusate sodium 100 mg capsule See Rx Instructions .ROUTE 05/22/21 05/22/21 Unknown History .COMPLEX PRN finasteride 5 mg tablet 1 tab PO DAILY 05/22/21 05/22/21 Unknown History glycerin 1 drp OPHTHALMIC (EYE) Q1-2H PRN 05/22/21 05/22/21 Unknown History latanoprost 0.005 % eye drops 1 drp OPHTHALMIC (EYE) DAILY 05/22/21 05/22/21 Unknown History magnesium hydroxide 400 mg/5 mL 2,400 mg PO PRN 05/22/21 Unknown History oral suspension (Milk of Magnesia) melatonin 5 mg tablet 5 mg PO BEDTIME 05/22/21 05/22/21 Unknown History bvcdtewsbtqb-xetkeugd-iokwfy tablet 1 tab PO DAILY 05/22/21 05/22/21 Unknown History polyethylene glycol 3350 17 17 g PO DAILY 05/22/21 05/22/21 Unknown History gram/dose oral powder polyethylene glycol 3350 17 17 g PO DAILY PRN 05/22/21 05/22/21 Unknown History gram/dose oral powder psyllium husk 0.4 gram capsule 0.4 g PO DAILY 05/22/21 05/22/21 Unknown History (Metamucil) sodium phosphates 19 gram-7 118 ml [place] DAILY PRN 05/22/21 05/22/21 Unknown History gram/118 mL enema (Fleet Enema) trazodone 150 mg tablet 2 tab PO BEDTIME 05/22/21 05/22/21 Unknown History Exam Exam Date and Time: July 03, 2021 0745 Height,Weight and Vital Signs: Height 6 ft 2 in Weight 106.141 kg Last Vital Signs Temp 97.5 F 07/03/21 07:13 Pulse 66 07/03/21 07:13 Resp 20 07/03/21 07:13 BP 165/79 H 07/03/21 07:13 Pulse Ox 98 07/03/21 07:13 Airway Mallampati Class: III TM Dist: >3cm Neck ROM: Full Heart: rrr Lungs: cta Assessment and Plan Assessment Anesthesia Assessment: Anesthesia Plan Discussed and Chart Reviewed Final Anesthetic Review Family History of Problems with Anesthesia: No History of Problems with Anesthesia: No NPO: Yes ASA Class: III Final Preanesthetic Review: No Changes in Pt Med Stat, Meds/Allgs Chart Reviewed, Consent Obtained/Reviewed and Anes Risks/Benef Reviewed Patient Risk: Intermediate Procedure Risk: Intermediate Anesthetic Plan Anesthetic Plan: GA Disposition: Standard PACU
--- NOTE | 2021-07-03 08:04 | HO.ECTPROC ---
ECT Procedure Note Diagnosis/Treatment Date of Service: 07/03/21 Diagnosis: Major Depressive Disorder Treatment: Maintenance Interval Clinical Notes: The patient reported been stable, no new symptoms ECT Settings Device: THYMATRON DGx Electrode Placement: Bifrontal Program/Pulse Width: 0.50 Energy Percent: 100 Seizure Duration By EEG (in seconds): 77 By Motor Observation (in seconds): 35 Medications Administration General Anesthetic: Etomidate (16) Muscle Relaxant: Succinylcholine (100) Ancillary Medications Analgesics: Torodol - Pre ECT Anti-emetics: Zofran - Pre ECT Cardiovascular Medications: Labetolol Miscillaneous Medications: Propofol (40) Airway Management Airway Management: Bag Mask Ventilation Treatment Recommendations No Changes Recommended: No change Pt Tolerated Procedure w/o Issue: No
[2021-07-03] MEDS: ondansetron HCL 4 MG/2 ML VIAL IVPUSH (09:42)
== END 2021-07-03 10:25 | disposition home or self-care (01) ==
PROVIDERS: PCP Internal Medicine; Visit Provider Psychiatry & Neurology Psychiatry
PROC: (CPT 90870; principal; 2021-07-03 07:30)
DX: F33.2 Major depressive disorder, recurrent severe without psychotic features (principal); R41.89 Other symptoms and signs involving cognitive functions and awareness; Z87.820 Personal history of traumatic brain injury; F10.11 Alcohol abuse, in remission; I10 Essential (primary) hypertension; Z79.899 Other long term (current) drug therapy; Z88.8 Allergy status to other drugs, medicaments and biological substances
CPT/HCPCS: 90870; J0330; J1885; J2405

== ENCOUNTER 2021-07-09 16:03 | Inpatient (IN) | payer MEDICARE, MEDICAID, SELFPAY ==
[2021-07-09 14:46] LABS: MANUAL DIFF FLAG NO
[2021-07-09 14:54] LABS: COVID-19 Test Negative (Negative)
[2021-07-09 14:55] LABS: Basophils Percent Auto 0.3 % (0-2); Eosinophils Absolute Auto 0.2 X10*3/uL (0.0-0.4); Eosinophils Percent Auto 3.6 % (0-4); Hematocrit 42.7 % (42-52); Hemoglobin 14.3 g/dl (14.0-18.0); Imm Gran Abs Auto 0.05 X10*3/uL (0.00-0.03); Imm Gran Pct Auto 0.8 % (0.0-0.4); Lymphocytes Absolute Auto 1.8 X10*3/uL (1.2-4.9); Lymphocytes Percent Auto 28.6 % (20-40); Mean Corpuscular HGB Conc 33.5 g/dl (31.0-36.0); Mean Corpuscular Hemoglobin 33.1 pg (27.0-33.0); Mean Corpuscular Volume 98.8 fL (80-98); Mean Platelet Volume 10.2 fL (9.4-12.4); Monocytes Absolute Auto 0.5 X10*3/uL (0.1-1.2); Monocytes Percent Auto 7.8 % (2-11); Neutrophils Absolute Auto 3.7 X10*3/uL (2.0-8.3); Neutrophils Percent Auto 58.9 % (45-73); Platelet Count 195 X10*3/uL (160-400); Red Blood Count 4.32 X10*6/uL (4.60-5.80); Red Cell Distribution Width 11.8 % (11.0-16.0); White Blood Count 6.3 X10*3/uL (4.8-10.8)
[2021-07-09 15:19] LABS: Alanine Aminotransferase 46 U/L (0-40); Albumin Level 4.7 g/dL (3.5-5.0); Alkaline Phosphatase 68 U/L (39-117); Anion Gap 14 (12-20); Aspartate Amino Transferase 29 U/L (5-37); Bilirubin Total 0.7 mg/dL (0.0-1.0); Blood Urea Nitrogen 19 mg/dL (9-16); Calcium 9.7 mg/dL (8.4-10.2); Carbon Dioxide 24 mmol/L (22-29); Chloride 107 mmol/L (96-108); Estimated Glomerular Filt Rate > 60; Glucose Random 73 mg/dL (60-115); Potassium 4.2 mmol/L (3.3-5.1); Sodium 141 mmol/L (135-145); Total Protein 7.2 g/dL (6.5-8.0)
[2021-07-09] MEDS: LORazepam 0.5 MG TABLET PO (17:18)
[2021-07-09] MEDS: Acetaminophen 325 MG TABLET 650 MG PO (17:18)
[2021-07-09 18:00] VITALS: BP 181/93; PULSE 68; TEMP 35.9; O2SAT 95
[2021-07-09] MEDS: Latanoprost 0.005 % Ophth Sol 2.5 ML DROPS 1 DROP EYE-BOTH (21:06)
[2021-07-09] MEDS: polyethylene glycoL 3350 17 GM POWD.PACK PO (21:09)
[2021-07-09] MEDS: traZODone HCL 100 MG TABLET 200 MG PO (21:14)
[2021-07-09] MEDS: Docusate Sodium 100 MG CAPSULE PO (21:15)
[2021-07-09] MEDS: Gabapentin 300 MG CAPSULE PO (21:15)
[2021-07-09] MEDS: lamoTRIgine 100 MG TABLET PO (21:15)
[2021-07-09] MEDS: Mirtazapine 30 MG TABLET PO (21:16)
[2021-07-09] MEDS: Melatonin 3 MG TABLET 6 MG PO (21:16)
--- NOTE | 2021-07-10 | ECG_ITS ---
Test Reason : PRE ECT Blood Pressure : / mmHG Vent. Rate : 071 BPM Atrial Rate : 071 BPM P-R Int : 194 ms QRS Dur : 094 ms QT Int : 392 ms P-R-T Axes : 043 -25 104 degrees QTc Int : 425 ms Normal sinus rhythm ST & T wave abnormality, consider lateral ischemia Abnormal ECG When compared with ECG of 22-MAY-2021 12:15, No significant change was found Referred By: Eleanor Gee Electronically Signed By:MCKENNA DIAZ
[2021-07-10] MEDS: LORazepam 0.5 MG TABLET PO ×3 (01:18→21:36)
[2021-07-10 06:00] VITALS: BP 196/94; PULSE 61; RESP 18; TEMP 36.6; O2SAT 98
[2021-07-10] MEDS: Acetaminophen 325 MG TABLET 650 MG PO (06:50)
[2021-07-10 08:11] VITALS: BP 196/94; PULSE 61
[2021-07-10] MEDS: amLODIPine Besylate 2.5 MG TABLET 7.5 MG PO (08:11)
[2021-07-10] MEDS: Escitalopram Oxalate 10 MG TABLET PO (08:11)
[2021-07-10 08:12] VITALS: BP 196/94; PULSE 61
[2021-07-10] MEDS: lisinopriL 40 MG TABLET PO (08:12)
[2021-07-10] MEDS: Docusate Sodium 100 MG CAPSULE PO ×2 (08:12→21:08)
[2021-07-10] MEDS: Finasteride 5 MG TABLET PO (08:12)
[2021-07-10] MEDS: Gabapentin 300 MG CAPSULE PO ×3 (08:13→21:08)
[2021-07-10] MEDS: ARIPiprazole 5 MG TABLET PO (08:13)
[2021-07-10] MEDS: lamoTRIgine 100 MG TABLET PO ×2 (08:13→21:08)
[2021-07-10 10:24] VITALS: BP 160/84; PULSE 70
--- NOTE | 2021-07-10 11:06 | MHC.CLN ---
NUTRITION PRIOR ADMISSION 06/20/21 KJJOXE=047.04 KG, HT=6 FT 2 IN (187.96 CM).
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
[2021-07-10] MEDS: Ibuprofen 400 MG TABLET PO ×2 (13:57→21:36)
--- NOTE | 2021-07-10 15:03 | HO.HSGERICON ---
History of Present Illness Data of Consult Service Date: 07/10/21 Requesting physician: Addy Haskins Primary Care Provider: Wilmer Enciso MD HPI Reason for consult: Pre ECT evaluation, admission H&P This is a 65-year-old male with history TBI, hypertension, depression, recent admission for depression and ECT treatment was readmitted to the hospital for ongoing management of depression. Patient had an outpatient appointment with Dr. Haskins yesterday and reported he felt like he was in black hole. Due to his depressive symptoms the decision was made to readmit him to the inpatient psychiatric floor for ongoing care. He has had ECT as recently as July 03. He wishes to continue with his ECT treatments. He denies any chest pain, he has not had any adverse outcome during his ECT treatments. Review of Systems Review of Systems: Yes all other systems are reviewed and are negative Constitutional: Constitutional: Denies chills and Denies fever(s) Cardiovascular: Cardiovascular: Denies chest pain Respiratory: Respiratory: Denies cough Gastrointestinal: Gastrointestinal: Denies abdominal pain PMFSH Medical History Alcohol use disorder, severe, in sustained remission Cognitive and neurobehavioral dysfunction following brain injury Hernia HTN (hypertension) Major depressive disorder, recurrent Major depressive disorder, recurrent severe without psychotic features Functional capacity: uses cane/walker Family history: reviewed and not pertinent Surgical History H/O brain surgery History of hip replacement S/P cholecystectomy Social History (Updated 07/10/21 @ 15:11 by MICHELE Zhu) Household Members: Caregiver and Other Household Members Other:: Pt lives in a penitentiary Housing: Other Housing Other:: Prison Do you presently have visiting nurse or other home services: No Patient Tobacco Use Status: Never used Tobacco Use of substances other than those prescribed or required for medical reasons: No Advance Directives Date on File: 05/27/19 service: No Sexual orientation: Straight/Heterosexual Meds Allergies Allergy/AdvReac Type Severity Reaction Status Date / Time fentanyl [FENTANYL] Allergy Intermediate unknown Verified 05/22/21 11:43 Active Medications: Current Medications Generic Name Dose Route Start Last Admin Trade Name Freq PRN Reason Stop Dose Admin Acetaminophen 650 mg 07/09/21 16:02 07/10/21 06:50 Acetaminophen 325 Mg Tablet PO 650 mg Q6H PRN Administration Headache/Pain Mild Scale (1-3) Al Hydroxide/Mg Hydroxide 30 ml 07/09/21 16:02 Magnesium Hydrox/Alum Hydrox 30 Ml Oral.Susp PO Q6H PRN Heartburn/Nausea Albuterol Sulfate 2 puff 07/09/21 17:08 Albuterol Sulfate 90 Mcg 8 Gm Inhaler INHALE Q6H PRN Shortness of Breath/Wheezing Amlodipine Besylate 7.5 mg 07/10/21 09:00 07/10/21 08:11 Amlodipine Besylate 2.5 Mg Tablet PO 7.5 mg DAILY TAZ Administration Protocol Aripiprazole 5 mg 07/10/21 09:00 07/10/21 08:13 Aripiprazole 5 Mg Tablet PO 5 mg DAILY TAZ Administration Docusate Sodium 100 mg 07/09/21 21:00 07/10/21 08:12 Docusate Sodium 100 Mg Capsule PO 100 mg BID TAZ Administration Escitalopram Oxalate 10 mg 07/10/21 09:00 07/10/21 08:11 Escitalopram Oxalate 10 Mg Tablet PO 10 mg DAILY TAZ Administration Finasteride 5 mg 07/10/21 09:00 07/10/21 08:12 Finasteride 5 Mg Tablet PO 5 mg DAILY TAZ Administration Gabapentin 300 mg 07/09/21 21:00 07/10/21 14:02 Gabapentin 300 Mg Capsule PO 300 mg TID TAZ Administration Hydrocortisone 1 appl 07/10/21 13:41 Hydrocortisone 1 % Ointment 28.35 Gm Tube TOPICAL BID PRN Perineal Discomfort Protocol Ibuprofen 400 mg 07/10/21 13:25 07/10/21 13:57 Ibuprofen 400 Mg Tablet PO 400 mg Q6H PRN Administration Pain, Moderate (Pain Scale 4-6 Lamotrigine 100 mg 07/09/21 21:00 07/10/21 08:13 Lamotrigine 100 Mg Tablet PO 100 mg BID TAZ Administration Latanoprost 1 drop 07/09/21 21:00 07/09/21 21:06 Latanoprost 0.005 % Ophth No 2.5 Ml Drops EYE-BOTH 1 drop BEDTIME TAZ Administration Lisinopril 40 mg 07/10/21 09:00 07/10/21 08:12 Lisinopril 40 Mg Tablet PO 40 mg DAILY TAZ Administration Protocol Lorazepam 0.5 mg 07/09/21 16:06 07/10/21 11:01 Lorazepam 0.5 Mg Tablet PO 0.5 mg Q6H PRN Administration Anxiety Magnesium Hydroxide 30 ml 07/09/21 16:02 Milk Of Magnesia 30 Ml Oral.Susp PO DAILY PRN Constipation Melatonin 6 mg 07/09/21 21:00 07/09/21 21:16 Melatonin 3 Mg Tablet PO 6 mg BEDTIME TAZ Administration Mirtazapine 30 mg 07/09/21 21:00 07/09/21 21:16 Mirtazapine 30 Mg Tablet PO 30 mg BEDTIME TAZ Administration Multivitamins/Minerals 1 tab 07/10/21 09:00 07/10/21 08:12 Multivitamin With Minerals Tablet PO 1 tab DAILY TAZ Administration Polyethylene Glycol 17 gm 07/09/21 17:08 07/09/21 21:09 Polyethylene Glycol 3350 17 Gm Powd.Pack PO 17 gm DAILY PRN Administration Constipation Psyllium Hydrophilic Mucilloid 3.4 gm 07/10/21 09:00 07/10/21 08:15 Psyllium Seed 3.4 Gm Powd.Pack PO 3.4 gm DAILY TAZ Administration Sodium Biphosphate/Sodium Phosphate 133 ml 07/09/21 17:08 Sodium Phosphate,[place]-Dibasic 133 Ml Enema [place] ONCE PRN Constipation Trazodone HCl 200 mg 07/09/21 21:00 07/09/21 21:14 Trazodone Hcl 100 Mg Tablet PO 200 mg BEDTIME TAZ Administration Home Medications Medication Instructions Recorded Confirmed Last Taken Type Tylenol 650 mg PO Q6-8H PRN 05/22/21 05/22/21 Unknown History albuterol 90 mcg/actuation aerosol See Rx Instructions .ROUTE .COMPLEX 05/22/21 05/22/21 Unknown History inhaler clotrimazole 1 % topical solution See Rx Instructions .ROUTE 05/22/21 05/22/21 Unknown History .COMPLEX PRN dextromethorphan-guaifenesin 10 10 ml PO Q6-8H PRN 05/22/21 05/22/21 Unknown History mg-200 mg/5 mL oral liquid docusate sodium 100 mg capsule 1 cap PO BID 05/22/21 05/22/21 Unknown History docusate sodium 100 mg capsule See Rx Instructions .ROUTE 05/22/21 05/22/21 Unknown History .COMPLEX PRN finasteride 5 mg tablet 1 tab PO DAILY 05/22/21 05/22/21 Unknown History glycerin 1 drp OPHTHALMIC (EYE) Q1-2H PRN 05/22/21 05/22/21 Unknown History latanoprost 0.005 % eye drops 1 drp OPHTHALMIC (EYE) DAILY 05/22/21 05/22/21 Unknown History magnesium hydroxide 400 mg/5 mL 2,400 mg PO PRN 05/22/21 Unknown History oral suspension (Milk of Magnesia) melatonin 5 mg tablet 5 mg PO BEDTIME 05/22/21 05/22/21 Unknown History madleeewytsp-itoxukdv-ywtqnb tablet 1 tab PO DAILY 05/22/21 05/22/21 Unknown History polyethylene glycol 3350 17 17 g PO DAILY 05/22/21 05/22/21 Unknown History gram/dose oral powder polyethylene glycol 3350 17 17 g PO DAILY PRN 05/22/21 05/22/21 Unknown History gram/dose oral powder psyllium husk 0.4 gram capsule 0.4 g PO DAILY 05/22/21 05/22/21 Unknown History (Metamucil) sodium phosphates 19 gram-7 118 ml [place] DAILY PRN 05/22/21 05/22/21 Unknown History gram/118 mL enema (Fleet Enema) trazodone 150 mg tablet 2 tab PO BEDTIME 05/22/21 05/22/21 Unknown History Results Labs CBC and Chem 7: 07/09/21 14:05 07/09/21 14:05 Labs: Laboratory Results - last 24 hr 07/09/21 14:05 Anion Gap 14 Estim Creat Clear Calc Not Reportable Estimated GFR > 60 Random Glucose 73 Calcium 9.7 Total Bilirubin 0.7 AST 29 ALT 46 H Alkaline Phosphatase 68 D Total Protein 7.2 Albumin 4.7 Assessment and Plan (1) Major depressive disorder, recurrent severe without psychotic features: Status: Acute This is a 65-year-old male with history of TBI, hypertension, depression, recent inpatient psych admission now readmitted for depression Patient has received ECT as recently as 07/03 with no adverse events. EKG reviewed, similar to previous. No chest pain. No clear contraindication to ECT treatments. No further workup prior to planned procedure. Thank you for allowing us to participate in the care of this patient. Please feel free to call us of any acute medical conditions arise Physical Exam Vital Signs: Last Vital Signs Temp 97.8 F 07/10/21 06:00 Pulse 70 07/10/21 10:24 Resp 18 07/10/21 06:00 BP 160/84 H 07/10/21 10:24 Pulse Ox 98 07/10/21 06:00 Const General: comfortable, no acute distress and awake Nutritional Appearance: well nourished [facility] Head: Yes normocephalic and Yes atraumatic Eyes Sclerae: sclerae normal Chest Chest palpation & inspection: normal inspection of the chest Resp Effort & Inspection: normal respiratory effort and no respiratory distress Auscultation: clear to auscultation bilaterally Cardio Rate: regular rate Rhythm: regular rhythm GI Palpation (GI): Soft to palpation and nontender Neuro Cranial nerves: Yes CN's II-XII intact bilaterally and Yes Bilaterally intact EOM present Extrem General: Yes normal to inspection Psych Affect: Blunted affect present Attitude: cooperative
[2021-07-10 17:56] VITALS: BP 140/80; PULSE 72; RESP 18; TEMP 36.6; O2SAT 95
[2021-07-10] MEDS: Mirtazapine 30 MG TABLET PO (21:08)
[2021-07-10] MEDS: traZODone HCL 100 MG TABLET 200 MG PO (21:09)
[2021-07-10] MEDS: Latanoprost 0.005 % Ophth Sol 2.5 ML DROPS 1 DROP EYE-BOTH (21:09)
[2021-07-10] MEDS: Melatonin 3 MG TABLET 6 MG PO (21:09)
[2021-07-10] MEDS: Hydrocortisone 1 % Ointment 28.35 GM TUBE 1 APPL TOPICAL (21:13)
[2021-07-11] MEDS: Ibuprofen 400 MG TABLET PO ×2 (04:20→21:41)
[2021-07-11] MEDS: LORazepam 0.5 MG TABLET PO ×2 (04:20→13:12)
[2021-07-11 06:00] VITALS: BP 176/82; PULSE 64; TEMP 36.4; O2SAT 96
[2021-07-11] MEDS: Docusate Sodium 100 MG CAPSULE PO ×2 (09:25→21:16)
[2021-07-11] MEDS: ARIPiprazole 5 MG TABLET PO (09:26)
[2021-07-11] MEDS: lamoTRIgine 100 MG TABLET PO ×2 (09:26→21:17)
[2021-07-11] MEDS: Gabapentin 300 MG CAPSULE PO ×3 (09:27→21:17)
[2021-07-11 09:28] VITALS: BP 152/84; PULSE 64
[2021-07-11] MEDS: amLODIPine Besylate 2.5 MG TABLET 7.5 MG PO (09:28)
[2021-07-11] MEDS: Escitalopram Oxalate 10 MG TABLET PO (09:28)
[2021-07-11 09:35] VITALS: BP 152/84; PULSE 64
[2021-07-11] MEDS: lisinopriL 40 MG TABLET PO (09:35)
[2021-07-11] MEDS: Finasteride 5 MG TABLET PO (09:36)
[2021-07-11] MEDS: Brexpiprazole 1 MG TABLET 0.5 MG PO (15:59)
[2021-07-11 18:40] VITALS: BP 163/80; PULSE 65; RESP 18; TEMP 36.7; O2SAT 97
[2021-07-11] MEDS: traZODone HCL 100 MG TABLET 200 MG PO (21:17)
[2021-07-11] MEDS: Mirtazapine 30 MG TABLET PO (21:17)
[2021-07-11] MEDS: Melatonin 3 MG TABLET 6 MG PO (21:17)
[2021-07-11] MEDS: Latanoprost 0.005 % Ophth Sol 2.5 ML DROPS 1 DROP EYE-BOTH (21:20)
--- NOTE | 2021-07-11 21:24 | HO.PSYCHPN ---
Subjective Subjective Date of Service: 07/11/21 Reason For Visit: Depression SI Subjective Notes: [place] Warning and Conditional Voluntary Healthcare Proxy: No Guardianship: No Medication Compliance: Yes Attending Groups: Intermittent Review of Systems Acute medical concerns: No Review of Systems Constitutional: Reports as per HPI Mental Status Exam Mental Status Exam Patient Appearance: Well Grooomed Patient Orientation: Person, Place, Time and Situation Level of Consciousness: Awake and Appropriate Patient Behavior: Cooperative and Anxious Mood Description: Withdrawn, Depressed, Blunted and Sad Affect Description: Constricted, Depressed, Anxious, Blunted and Nervous Patient Cognition Impaired: No Ability to Follow Directions: Good Speech Pattern: Clear Memory Description: Intact Hallucinations: None Delusions: Not Present Thought Process: Rumination and Goal Oriented Thought Content: positive for Intact, positive for Circumstantial and positive for Suicidal Ideation (thoughts go into traffic ) Depressive Symptoms: Increased Anxiety, Increased Irritability, Thoughts of /Suicide and Difficulty Concentrating Judgement: Fair Diagnostics Vital Signs (24Hr): Vital Signs - 24 hr 07/11/21 06:00 07/11/21 09:28 07/11/21 09:35 Temperature 97.6 F Pulse Rate 64 64 64 Respiratory Rate Blood Pressure 176/82 H 152/84 H 152/84 H Pulse Oximetry 96 07/11/21 18:40 Temperature 98.1 F Pulse Rate 65 Respiratory Rate 18 Blood Pressure 163/80 H Pulse Oximetry 97 Labs Results: 07/09/21 14:05 07/09/21 14:05 Medications Medications Current Medications Generic Name Dose Route Start Last Admin Trade Name Freq PRN Reason Stop Dose Admin Acetaminophen 650 mg 07/09/21 16:02 07/10/21 06:50 Acetaminophen 325 Mg Tablet PO 650 mg Q6H PRN Administration Headache/Pain Mild Scale (1-3) Al Hydroxide/Mg Hydroxide 30 ml 07/09/21 16:02 Magnesium Hydrox/Alum Hydrox 30 Ml Oral.Susp PO Q6H PRN Heartburn/Nausea Albuterol Sulfate 2 puff 07/09/21 17:08 Albuterol Sulfate 90 Mcg 8 Gm Inhaler INHALE Q6H PRN Shortness of Breath/Wheezing Amlodipine Besylate 10 mg 07/12/21 09:00 Amlodipine Besylate 5 Mg Tablet PO DAILY TAZ Protocol Aripiprazole 5 mg 07/10/21 09:00 07/11/21 09:26 Aripiprazole 5 Mg Tablet PO 5 mg DAILY TAZ Administration Brexpiprazole 0.5 mg 07/11/21 15:50 07/11/21 15:59 Brexpiprazole 1 Mg Tablet PO 0.5 mg DAILY TAZ Administration Docusate Sodium 100 mg 07/09/21 21:00 07/11/21 21:16 Docusate Sodium 100 Mg Capsule PO 100 mg BID TAZ Administration Escitalopram Oxalate 10 mg 07/10/21 09:00 07/11/21 09:28 Escitalopram Oxalate 10 Mg Tablet PO 10 mg DAILY TAZ Administration Finasteride 5 mg 07/10/21 09:00 07/11/21 09:36 Finasteride 5 Mg Tablet PO 5 mg DAILY TAZ Administration Gabapentin 300 mg 07/09/21 21:00 07/11/21 21:17 Gabapentin 300 Mg Capsule PO 300 mg TID TAZ Administration Hydrocortisone 1 appl 07/10/21 13:41 07/10/21 21:13 Hydrocortisone 1 % Ointment 28.35 Gm Tube TOPICAL 1 appl BID PRN Administration Perineal Discomfort Protocol Ibuprofen 400 mg 07/10/21 13:25 07/11/21 04:20 Ibuprofen 400 Mg Tablet PO 400 mg Q6H PRN Administration Pain, Moderate (Pain Scale 4-6 Lamotrigine 100 mg 07/09/21 21:00 07/11/21 21:17 Lamotrigine 100 Mg Tablet PO 100 mg BID TAZ Administration Latanoprost 1 drop 07/09/21 21:00 07/10/21 21:09 Latanoprost 0.005 % Ophth No 2.5 Ml Drops EYE-BOTH 1 drop BEDTIME TAZ Administration Lisinopril 40 mg 07/10/21 09:00 07/11/21 09:35 Lisinopril 40 Mg Tablet PO 40 mg DAILY TAZ Administration Protocol Lorazepam 0.5 mg 07/09/21 16:06 07/11/21 13:12 Lorazepam 0.5 Mg Tablet PO 0.5 mg Q6H PRN Administration Anxiety Magnesium Hydroxide 30 ml 07/09/21 16:02 Milk Of Magnesia 30 Ml Oral.Susp PO DAILY PRN Constipation Melatonin 6 mg 07/09/21 21:00 07/11/21 21:17 Melatonin 3 Mg Tablet PO 6 mg BEDTIME TAZ Administration Mirtazapine 30 mg 07/09/21 21:00 07/11/21 21:17 Mirtazapine 30 Mg Tablet PO 30 mg BEDTIME TAZ Administration Multivitamins/Minerals 1 tab 07/10/21 09:00 07/11/21 09:25 Multivitamin With Minerals Tablet PO 1 tab DAILY TAZ Administration Polyethylene Glycol 17 gm 07/09/21 17:08 07/09/21 21:09 Polyethylene Glycol 3350 17 Gm Powd.Pack PO 17 gm DAILY PRN Administration Constipation Psyllium Hydrophilic Mucilloid 3.4 gm 07/10/21 09:00 07/11/21 09:45 Psyllium Seed 3.4 Gm Powd.Pack PO 3.4 gm DAILY TAZ Administration Sodium Biphosphate/Sodium Phosphate 133 ml 07/09/21 17:08 Sodium Phosphate,[place]-Dibasic 133 Ml Enema [place] ONCE PRN Constipation Trazodone HCl 200 mg 07/09/21 21:00 07/11/21 21:17 Trazodone Hcl 100 Mg Tablet PO 200 mg BEDTIME TAZ Administration Allergies Allergies Allergy/AdvReac Type Severity Reaction Status Date / Time fentanyl [FENTANYL] Allergy Intermediate unknown Verified 05/22/21 11:43 Assessment & Plan Assessment & Plan (1) Major depressive disorder, recurrent severe without psychotic features: Status: Acute Code(s): F33.2 - Major depressive disorder, recurrent severe without psychotic features (2) Cognitive and neurobehavioral dysfunction following brain injury: Status: Acute Code(s): G31.89 - Other specified degenerative diseases of nervous system; F09 - Unspecified mental disorder due to known physiological condition; S06.9X9S - Unspecified intracranial injury with loss of consciousness of unspecified duration, sequela (3) HTN (hypertension): Status: Acute Code(s): I10 - Essential (primary) hypertension Assessment and Plan: ReStart ECT . Abilify start Rexulti ECT for tomorrow her amlodipine increased to 10 mg daily for hypertension monitor for self-harming behavior Greater than 50% of the session was spent on counseling and/or coordination of care Reason for contiued inpatient stay Substantial Risk for: harm to self
[2021-07-12] MEDS: Ibuprofen 400 MG TABLET PO ×2 (03:33→21:22)
[2021-07-12 05:40] VITALS: BP 166/80; PULSE 60
[2021-07-12] MEDS: amLODIPine Besylate 5 MG TABLET 10 MG PO (05:40)
[2021-07-12 05:50] VITALS: BP 166/80; PULSE 60; RESP 18; TEMP 36.7; O2SAT 97
[2021-07-12 05:53] VITALS: BP 166/80; PULSE 60; RESP 18; TEMP 36.7; O2SAT 97
--- NOTE | 2021-07-12 07:35 | MHC.SHP ---
Pre-Procedural Eval Section A Date of Service: 07/12/21 Changes since office visit: Yes Changes in Medication and Yes Patient answered all questions; No Cold of Flu in the past 2 weeks and No New Medical Problems The History & Physical has been completed within 30 days and I have reviewed it.: Yes Section B Chief Complaint: Depression SI Allergies: Allergies Allergy/AdvReac Type Severity Reaction Status Date / Time fentanyl [FENTANYL] Allergy Intermediate unknown Verified 05/22/21 11:43 Plan I have reviewed the history and physical and performed a pertinent physical examination on my patient. No changes have occurred unless specified.
[2021-07-12] MEDS: Brexpiprazole 1 MG TABLET PO (10:24)
[2021-07-12] MEDS: Finasteride 5 MG TABLET PO (10:24)
[2021-07-12] MEDS: lamoTRIgine 100 MG TABLET PO ×2 (10:25→21:23)
[2021-07-12] MEDS: Gabapentin 300 MG CAPSULE PO ×3 (10:25→21:22)
[2021-07-12] MEDS: Docusate Sodium 100 MG CAPSULE PO ×2 (10:25→21:23)
[2021-07-12] MEDS: Escitalopram Oxalate 10 MG TABLET PO (10:25)
[2021-07-12] MEDS: lisinopriL 40 MG TABLET PO (10:25)
[2021-07-12] MEDS: Acetaminophen 325 MG TABLET 650 MG PO (16:38)
[2021-07-12 18:00] VITALS: BP 135/70; PULSE 80; TEMP 36.9; O2SAT 94
[2021-07-12] MEDS: traZODone HCL 100 MG TABLET 200 MG PO (21:22)
[2021-07-12] MEDS: LORazepam 0.5 MG TABLET PO (21:22)
[2021-07-12] MEDS: Melatonin 3 MG TABLET 6 MG PO (21:22)
[2021-07-12] MEDS: Mirtazapine 30 MG TABLET PO (21:23)
[2021-07-12] MEDS: Latanoprost 0.005 % Ophth Sol 2.5 ML DROPS 1 DROP EYE-BOTH (21:23)
[2021-07-12] MEDS: Hydrocortisone 1 % Ointment 28.35 GM TUBE 1 APPL TOPICAL (21:25)
[2021-07-12] MEDS: Albuterol Sulfate 90 MCG 8 GM INHALER 2 PUFF INHALE (21:35)
--- NOTE | 2021-07-12 22:29 | HO.ECTPROC ---
ECT Procedure Note Diagnosis/Treatment Date of Service: 07/12/21 Diagnosis: Major Depressive Disorder Current Treatment Number: 9 Treatment: Other (continuation tx ) Interval Clinical Notes: pt readmitted with severe ECT Settings Device: THYMATRON DGx Electrode Placement: Bifrontal Program/Pulse Width: 0.50 Energy Percent: 100 Seizure Duration By EEG (in seconds): 46 Medications Administration General Anesthetic: Etomidate (16) Muscle Relaxant: Succinylcholine (100) Ancillary Medications Cardiovascular Medications: Labetolol (15 pre plus 10 post htn ) Miscillaneous Medications: Propofol Airway Management Airway Management: Bag Mask Ventilation Treatment Recommendations Electrode Placement: Bifrontal Program/Pulse Width: 0.50 Notes: Pt was tx x 2 0.25 100 % no sz then restim 0.5 program Pt Tolerated Procedure w/o Issue: Yes
[2021-07-13] MEDS: LORazepam 0.5 MG TABLET PO ×2 (04:55→20:58)
[2021-07-13] MEDS: Ibuprofen 400 MG TABLET PO ×2 (04:57→20:57)
[2021-07-13 09:12] VITALS: BP 141/78; PULSE 68
[2021-07-13] MEDS: polyethylene glycoL 3350 17 GM POWD.PACK PO ×2 (09:12→18:45)
[2021-07-13] MEDS: Escitalopram Oxalate 10 MG TABLET PO (09:12)
[2021-07-13] MEDS: lamoTRIgine 100 MG TABLET PO ×2 (09:12→20:58)
[2021-07-13] MEDS: Finasteride 5 MG TABLET PO (09:12)
[2021-07-13] MEDS: Docusate Sodium 100 MG CAPSULE PO ×2 (09:12→20:57)
[2021-07-13] MEDS: Gabapentin 300 MG CAPSULE PO ×3 (09:12→20:58)
[2021-07-13] MEDS: Brexpiprazole 1 MG TABLET PO (09:12)
[2021-07-13] MEDS: amLODIPine Besylate 5 MG TABLET 10 MG PO (09:12)
[2021-07-13 09:13] VITALS: BP 141/78; PULSE 68
[2021-07-13] MEDS: lisinopriL 40 MG TABLET PO (09:13)
[2021-07-13] MEDS: Acetaminophen 325 MG TABLET 650 MG PO (09:25)
[2021-07-13 09:46] VITALS: BP 141/78; PULSE 68; RESP 20; TEMP 37.1; O2SAT 96
--- NOTE | 2021-07-13 13:29 | HO.PSYCHPN ---
Subjective Subjective Date of Service: 07/13/21 Reason For Visit: Depression SI Subjective Notes: Conditional Voluntary Interim History: Patient has been depressed ruminating unclear if he has the motivation to keep going denies active SI in the setting Mental Status Exam Mental Status Exam Patient Appearance: Well Grooomed Patient Orientation: Person, Place, Time and Situation Level of Consciousness: Awake and Appropriate Patient Behavior: Cooperative and Anxious Mood Description: Withdrawn, Depressed, Blunted and Sad Affect Description: Constricted, Depressed, Anxious, Blunted and Nervous Patient Cognition Impaired: No Ability to Follow Directions: Good Speech Pattern: Clear Memory Description: Intact Hallucinations: None Delusions: Not Present Thought Process: Rumination and Goal Oriented Thought Content: positive for Intact, positive for Circumstantial and positive for Suicidal Ideation (thoughts go into traffic ) Depressive Symptoms: Increased Anxiety, Increased Irritability, Thoughts of /Suicide and Difficulty Concentrating Judgement: Fair Diagnostics Vital Signs (24Hr): Vital Signs - 24 hr 07/12/21 18:00 07/13/21 09:12 07/13/21 09:13 Temperature 98.5 F Pulse Rate 80 68 68 Respiratory Rate Blood Pressure 135/70 141/78 H 141/78 H Pulse Oximetry 94 07/13/21 09:46 Temperature 98.7 F Pulse Rate 68 Respiratory Rate 20 Blood Pressure 141/78 H Pulse Oximetry 96 Labs Results: 07/09/21 14:05 07/09/21 14:05 Medications Medications Current Medications Generic Name Dose Route Start Last Admin Trade Name Freq PRN Reason Stop Dose Admin Acetaminophen 650 mg 07/09/21 16:02 07/13/21 09:25 Acetaminophen 325 Mg Tablet PO 650 mg Q6H PRN Administration Headache/Pain Mild Scale (1-3) Al Hydroxide/Mg Hydroxide 30 ml 07/09/21 16:02 Magnesium Hydrox/Alum Hydrox 30 Ml Oral.Susp PO Q6H PRN Heartburn/Nausea Albuterol Sulfate 2 puff 07/09/21 17:08 07/12/21 21:35 Albuterol Sulfate 90 Mcg 8 Gm Inhaler INHALE 2 puff Q6H PRN Administration Shortness of Breath/Wheezing Amlodipine Besylate 10 mg 07/12/21 09:00 07/13/21 09:12 Amlodipine Besylate 5 Mg Tablet PO 10 mg DAILY TAZ Administration Protocol Brexpiprazole 1 mg 07/12/21 09:30 07/13/21 09:12 Brexpiprazole 1 Mg Tablet PO 1 mg DAILY TAZ Administration Docusate Sodium 100 mg 07/09/21 21:00 07/13/21 09:12 Docusate Sodium 100 Mg Capsule PO 100 mg BID TAZ Administration Escitalopram Oxalate 10 mg 07/10/21 09:00 07/13/21 09:12 Escitalopram Oxalate 10 Mg Tablet PO 10 mg DAILY TAZ Administration Finasteride 5 mg 07/10/21 09:00 07/13/21 09:12 Finasteride 5 Mg Tablet PO 5 mg DAILY TAZ Administration Gabapentin 300 mg 07/09/21 21:00 07/13/21 09:12 Gabapentin 300 Mg Capsule PO 300 mg TID TAZ Administration Hydrocortisone 1 appl 07/10/21 13:41 07/12/21 21:25 Hydrocortisone 1 % Ointment 28.35 Gm Tube TOPICAL 1 appl BID PRN Administration Perineal Discomfort Protocol Ibuprofen 400 mg 07/10/21 13:25 07/13/21 04:57 Ibuprofen 400 Mg Tablet PO 400 mg Q6H PRN Administration Pain, Moderate (Pain Scale 4-6 Lamotrigine 100 mg 07/09/21 21:00 07/13/21 09:12 Lamotrigine 100 Mg Tablet PO 100 mg BID TAZ Administration Latanoprost 1 drop 07/09/21 21:00 07/12/21 21:23 Latanoprost 0.005 % Ophth No 2.5 Ml Drops EYE-BOTH 1 drop BEDTIME TAZ Administration Lisinopril 40 mg 07/10/21 09:00 07/13/21 09:13 Lisinopril 40 Mg Tablet PO 40 mg DAILY TAZ Administration Protocol Lorazepam 0.5 mg 07/09/21 16:06 07/13/21 04:55 Lorazepam 0.5 Mg Tablet PO 0.5 mg Q6H PRN Administration Anxiety Magnesium Hydroxide 30 ml 07/09/21 16:02 Milk Of Magnesia 30 Ml Oral.Susp PO DAILY PRN Constipation Melatonin 6 mg 07/09/21 21:00 07/12/21 21:22 Melatonin 3 Mg Tablet PO 6 mg BEDTIME TAZ Administration Mirtazapine 30 mg 07/09/21 21:00 07/12/21 21:23 Mirtazapine 30 Mg Tablet PO 30 mg BEDTIME TAZ Administration Multivitamins/Minerals 1 tab 07/10/21 09:00 07/13/21 09:12 Multivitamin With Minerals Tablet PO 1 tab DAILY TAZ Administration Polyethylene Glycol 17 gm 07/09/21 17:08 07/13/21 09:12 Polyethylene Glycol 3350 17 Gm Powd.Pack PO 17 gm DAILY PRN Administration Constipation Psyllium Hydrophilic Mucilloid 3.4 gm 07/10/21 09:00 07/13/21 09:11 Psyllium Seed 3.4 Gm Powd.Pack PO 3.4 gm DAILY TAZ Administration Sodium Biphosphate/Sodium Phosphate 133 ml 07/09/21 17:08 Sodium Phosphate,[place]-Dibasic 133 Ml Enema [place] ONCE PRN Constipation Trazodone HCl 200 mg 07/09/21 21:00 07/12/21 21:22 Trazodone Hcl 100 Mg Tablet PO 200 mg BEDTIME TAZ Administration Allergies Allergies Allergy/AdvReac Type Severity Reaction Status Date / Time fentanyl [FENTANYL] Allergy Intermediate unknown Verified 05/22/21 11:43 Assessment & Plan Assessment & Plan (1) Major depressive disorder, recurrent severe without psychotic features: Status: Acute Code(s): F33.2 - Major depressive disorder, recurrent severe without psychotic features (2) Cognitive and neurobehavioral dysfunction following brain injury: Status: Acute Code(s): G31.89 - Other specified degenerative diseases of nervous system; F09 - Unspecified mental disorder due to known physiological condition; S06.9X9S - Unspecified intracranial injury with loss of consciousness of unspecified duration, sequela (3) HTN (hypertension): Status: Acute Code(s): I10 - Essential (primary) hypertension Assessment and Plan: ReStart ECT . Rexulti ECT for tomorrow her amlodipine increased to 10 mg daily for hypertension monitor for self-harming behavior Continue ECT monitor response to Rexulti Greater than 50% of the session was spent on counseling and/or coordination of care Reason for contiued inpatient stay Substantial Risk for: inability to function and rapid decompensation
[2021-07-13] MEDS: Milk of Magnesia 30 ML ORAL.SUSP PO (14:16)
[2021-07-13 18:00] VITALS: BP 161/95; PULSE 66; RESP 16; TEMP 36.6; O2SAT 98
[2021-07-13] MEDS: Latanoprost 0.005 % Ophth Sol 2.5 ML DROPS 1 DROP EYE-BOTH (20:55)
[2021-07-13] MEDS: traZODone HCL 100 MG TABLET 300 MG PO (20:56)
[2021-07-13] MEDS: Melatonin 3 MG TABLET 6 MG PO (20:56)
[2021-07-13] MEDS: Mirtazapine 30 MG TABLET PO (20:57)
[2021-07-13] MEDS: Hydrocortisone 1 % Ointment 28.35 GM TUBE 1 APPL TOPICAL (20:58)
[2021-07-13] MEDS: Albuterol Sulfate 90 MCG 8 GM INHALER 2 PUFF INHALE (21:14)
[2021-07-14] MEDS: Acetaminophen 325 MG TABLET 650 MG PO (05:10)
[2021-07-14] MEDS: LORazepam 0.5 MG TABLET PO ×2 (05:11→13:01)
[2021-07-14 08:59] VITALS: BP 165/83; PULSE 77
[2021-07-14] MEDS: amLODIPine Besylate 5 MG TABLET 10 MG PO (08:59)
[2021-07-14 09:04] VITALS: BP 165/83; PULSE 77
[2021-07-14] MEDS: lamoTRIgine 100 MG TABLET PO (09:04)
[2021-07-14] MEDS: Docusate Sodium 100 MG CAPSULE PO ×2 (09:04→20:13)
[2021-07-14] MEDS: Brexpiprazole 1 MG TABLET PO (09:04)
[2021-07-14] MEDS: lisinopriL 40 MG TABLET PO (09:04)
[2021-07-14] MEDS: Gabapentin 300 MG CAPSULE PO ×2 (09:05→14:28)
[2021-07-14] MEDS: Finasteride 5 MG TABLET PO (09:05)
[2021-07-14] MEDS: Escitalopram Oxalate 10 MG TABLET PO (09:05)
[2021-07-14] MEDS: Ibuprofen 400 MG TABLET PO (09:10)
[2021-07-14 09:19] VITALS: BP 165/83; PULSE 77; RESP 16; TEMP 36.4; O2SAT 99
--- NOTE | 2021-07-14 12:37 | HO.PSYCHPN ---
Subjective Subjective Date of Service: 07/14/21 Reason For Visit: Depression SI Subjective Notes: Conditional Voluntary Healthcare Proxy: No Guardianship: No Medical Problems Affecting Mental Status: Yes Interim History: pt on rexulti fearful of future passive si tolerating medication Medication Compliance: Yes Side effects from medications: No Attending Groups: Yes Review of Systems Acute medical concerns: Yes rash Medical Review of Systems: changed Review of Systems: l wrist rash Mental Status Exam Mental Status Exam Patient Appearance: Well Grooomed Patient Orientation: Person, Place, Time and Situation Level of Consciousness: Awake and Appropriate Patient Behavior: Cooperative and Anxious Mood Description: Withdrawn, Depressed, Blunted and Sad Affect Description: Constricted, Depressed, Anxious, Blunted and Nervous Patient Cognition Impaired: No Ability to Follow Directions: Good Speech Pattern: Clear Memory Description: Intact Hallucinations: None Delusions: Not Present Thought Process: Rumination and Goal Oriented Thought Content: positive for Intact, positive for Circumstantial and positive for Suicidal Ideation (thoughts go into traffic ) Depressive Symptoms: Increased Anxiety, Increased Irritability, Thoughts of /Suicide and Difficulty Concentrating Judgement: Fair Diagnostics Vital Signs (24Hr): Vital Signs - 24 hr 07/13/21 18:00 07/14/21 08:59 07/14/21 09:04 Temperature 97.8 F Pulse Rate 66 77 77 Respiratory Rate 16 Blood Pressure 161/95 H 165/83 H 165/83 H Pulse Oximetry 98 07/14/21 09:19 Temperature 97.5 F Pulse Rate 77 Respiratory Rate 16 Blood Pressure 165/83 H Pulse Oximetry 99 Labs Results: 07/09/21 14:05 07/09/21 14:05 Medications Medications Current Medications Generic Name Dose Route Start Last Admin Trade Name Freq PRN Reason Stop Dose Admin Acetaminophen 650 mg 07/09/21 16:02 07/14/21 05:10 Acetaminophen 325 Mg Tablet PO 650 mg Q6H PRN Administration Headache/Pain Mild Scale (1-3) Al Hydroxide/Mg Hydroxide 30 ml 07/09/21 16:02 Magnesium Hydrox/Alum Hydrox 30 Ml Oral.Susp PO Q6H PRN Heartburn/Nausea Albuterol Sulfate 2 puff 07/09/21 17:08 07/13/21 21:14 Albuterol Sulfate 90 Mcg 8 Gm Inhaler INHALE 2 puff Q6H PRN Administration Shortness of Breath/Wheezing Amlodipine Besylate 10 mg 07/12/21 09:00 07/14/21 08:59 Amlodipine Besylate 5 Mg Tablet PO 10 mg DAILY TAZ Administration Protocol Brexpiprazole 1 mg 07/12/21 09:30 07/14/21 09:04 Brexpiprazole 1 Mg Tablet PO 1 mg DAILY TAZ Administration Docusate Sodium 100 mg 07/09/21 21:00 07/14/21 09:04 Docusate Sodium 100 Mg Capsule PO 100 mg BID TAZ Administration Escitalopram Oxalate 10 mg 07/10/21 09:00 07/14/21 09:05 Escitalopram Oxalate 10 Mg Tablet PO 10 mg DAILY TAZ Administration Finasteride 5 mg 07/10/21 09:00 07/14/21 09:05 Finasteride 5 Mg Tablet PO 5 mg DAILY TAZ Administration Gabapentin 300 mg 07/09/21 21:00 07/14/21 09:05 Gabapentin 300 Mg Capsule PO 300 mg TID TAZ Administration Hydrocortisone 1 appl 07/10/21 13:41 07/13/21 20:58 Hydrocortisone 1 % Ointment 28.35 Gm Tube TOPICAL 1 appl BID PRN Administration Perineal Discomfort Protocol Ibuprofen 400 mg 07/10/21 13:25 07/14/21 09:10 Ibuprofen 400 Mg Tablet PO 400 mg Q6H PRN Administration Pain, Moderate (Pain Scale 4-6 Lamotrigine 100 mg 07/09/21 21:00 07/14/21 09:04 Lamotrigine 100 Mg Tablet PO 100 mg BID TAZ Administration Latanoprost 1 drop 07/09/21 21:00 07/13/21 20:55 Latanoprost 0.005 % Ophth No 2.5 Ml Drops EYE-BOTH 1 drop BEDTIME TAZ Administration Lisinopril 40 mg 07/10/21 09:00 07/14/21 09:04 Lisinopril 40 Mg Tablet PO 40 mg DAILY TAZ Administration Protocol Lorazepam 0.5 mg 07/09/21 16:06 07/14/21 05:11 Lorazepam 0.5 Mg Tablet PO 0.5 mg Q6H PRN Administration Anxiety Magnesium Hydroxide 30 ml 07/09/21 16:02 07/13/21 14:16 Milk Of Magnesia 30 Ml Oral.Susp PO 30 ml DAILY PRN Administration Constipation Melatonin 6 mg 07/09/21 21:00 07/13/21 20:56 Melatonin 3 Mg Tablet PO 6 mg BEDTIME TAZ Administration Mirtazapine 30 mg 07/09/21 21:00 07/13/21 20:57 Mirtazapine 30 Mg Tablet PO 30 mg BEDTIME TAZ Administration Multivitamins/Minerals 1 tab 07/10/21 09:00 07/14/21 09:06 Multivitamin With Minerals Tablet PO 1 tab DAILY TAZ Administration Polyethylene Glycol 17 gm 07/09/21 17:08 07/13/21 18:45 Polyethylene Glycol 3350 17 Gm Powd.Pack PO 17 gm DAILY PRN Administration Constipation Psyllium Hydrophilic Mucilloid 3.4 gm 07/10/21 09:00 07/14/21 09:06 Psyllium Seed 3.4 Gm Powd.Pack PO 3.4 gm DAILY TAZ Administration Sodium Biphosphate/Sodium Phosphate 133 ml 07/09/21 17:08 Sodium Phosphate,[place]-Dibasic 133 Ml Enema [place] ONCE PRN Constipation Trazodone HCl 300 mg 07/13/21 21:00 07/13/21 20:56 Trazodone Hcl 100 Mg Tablet PO 300 mg BEDTIME TAZ Administration Allergies Allergies Allergy/AdvReac Type Severity Reaction Status Date / Time fentanyl [FENTANYL] Allergy Intermediate unknown Verified 05/22/21 11:43 Assessment & Plan Assessment & Plan (1) Major depressive disorder, recurrent severe without psychotic features: Status: Acute Code(s): F33.2 - Major depressive disorder, recurrent severe without psychotic features (2) Cognitive and neurobehavioral dysfunction following brain injury: Status: Acute Code(s): G31.89 - Other specified degenerative diseases of nervous system; F09 - Unspecified mental disorder due to known physiological condition; S06.9X9S - Unspecified intracranial injury with loss of consciousness of unspecified duration, sequela (3) HTN (hypertension): Status: Acute Code(s): I10 - Essential (primary) hypertension Assessment and Plan: ReStart ECT . Rexulti ECT for tomorrow her amlodipine increased to 10 mg daily for hypertension monitor for self-harming behavior Continue ECT monitor response to Rexulti hosp consult rash pruritis Greater than 50% of the session was spent on counseling and/or coordination of care Reason for contiued inpatient stay Substantial Risk for: harm to self and rapid decompensation
[2021-07-14] MEDS: Albuterol Sulfate 90 MCG 8 GM INHALER 2 PUFF INHALE ×2 (13:17→20:56)
[2021-07-14 18:00] VITALS: BP 152/78; PULSE 67; RESP 18; TEMP 36.5; O2SAT 96
--- NOTE | 2021-07-14 18:45 | PC.NURSE ---
Patient has abrasions to lower extremities bilaterally. New since yesterday. Wound consult ordered. MD aware. Open to air. Patient not endorsing scratching legs but that is what it appears to have happened.
[2021-07-14] MEDS: Mirtazapine 30 MG TABLET PO (20:13)
[2021-07-14] MEDS: Melatonin 3 MG TABLET 6 MG PO (20:13)
[2021-07-14] MEDS: traZODone HCL 100 MG TABLET 300 MG PO (20:13)
[2021-07-14] MEDS: Latanoprost 0.005 % Ophth Sol 2.5 ML DROPS 1 DROP EYE-BOTH (20:15)
[2021-07-15] VITALS (11 sets, daily range): BP systolic 144–196; BP diastolic 77–97; PULSE 66–81; RESP 16–20; TEMP 36.6–37.1; O2SAT 92–99; BMI 29.6
[2021-07-15] MEDS: lisinopriL 40 MG TABLET PO (06:22)
[2021-07-15] MEDS: amLODIPine Besylate 5 MG TABLET 10 MG PO (06:23)
[2021-07-15] MEDS: Albuterol Sulfate 90 MCG 8 GM INHALER 2 PUFF INHALE ×2 (06:36→21:44)
--- NOTE | 2021-07-15 07:51 | MHC.SHP ---
Pre-Procedural Eval Section A Date of Service: 07/15/21 The patient is an INPATIENT: Yes Changes since office visit: Yes Changes in Medication and Yes Patient answered all questions; No Cold of Flu in the past 2 weeks and No New Medical Problems The History & Physical has been completed within 30 days and I have reviewed it.: Yes Section B Chief Complaint: Depression SI Allergies: Allergies Allergy/AdvReac Type Severity Reaction Status Date / Time fentanyl [FENTANYL] Allergy Intermediate unknown Verified 05/22/21 11:43 Plan I have reviewed the history and physical and performed a pertinent physical examination on my patient. No changes have occurred unless specified.
--- NOTE | 2021-07-15 08:00 | HO.ECTPROC ---
ECT Procedure Note Diagnosis/Treatment Date of Service: 07/15/21 Diagnosis: Major Depressive Disorder Previous ECT Date: 07/12/21 Current Treatment Number: 10 Treatment: Other (continuation) Interval Clinical Notes: Patient quite depressed withdrawn ECT Settings Device: THYMATRON DGx Electrode Placement: Bifrontal Program/Pulse Width: 0.50 Energy Percent: 100 Seizure Duration By EEG (in seconds): 66 Medications Administration General Anesthetic: Etomidate (16) Muscle Relaxant: Succinylcholine (100) Ancillary Medications Cardiovascular Medications: Labetolol (25) Miscillaneous Medications: Propofol Airway Management Airway Management: Bag Mask Ventilation Treatment Recommendations Electrode Placement: Bifrontal Notes: Some postop hypertension Pt Tolerated Procedure w/o Issue: Yes
--- NOTE | 2021-07-15 08:04 | P.CONAN_ITS ---
[facility] Active Problems Active Problems: All Active Problems (Updated 05/24/21 @ 23:38 by Addy Haskins MD) Major depressive disorder, recurrent severe without psychotic features (Acute) Cognitive and neurobehavioral dysfunction following brain injury (Acute) HTN (hypertension) (Acute) Past Medical History Medical History Alcohol use disorder, severe, in sustained remission Cognitive and neurobehavioral dysfunction following brain injury Hernia HTN (hypertension) Major depressive disorder, recurrent Major depressive disorder, recurrent severe without psychotic features Functional capacity: uses cane/walker Family History Family history of problems with anesthesia: No Surgical History Surgical History H/O brain surgery History of hip replacement S/P cholecystectomy History of Problems with Anesthesia: No Social History Social History Household Members: Caregiver and Other Household Members Other:: Pt lives in a half-way Housing: Other Housing Other:: Half-Way Do you presently have visiting nurse or other home services: No Patient Tobacco Use Status: Never used Tobacco Use of substances other than those prescribed or required for medical reasons: No Are you DNR?: No Advance Directives: Yes Advance Directives on File: Yes Advance Directives Date on File: 05/27/19 Recently lost weight without trying: Yes How much weight loss: 2-13 pounds Nutrition Risks: No Nutritional Risk service: No Sexual orientation: Straight/Heterosexual Meds Allergies Allergy/AdvReac Type Severity Reaction Status Date / Time fentanyl [FENTANYL] Allergy Intermediate unknown Verified 05/22/21 11:43 Active Medications: Current Medications Generic Name Dose Route Start Last Admin Trade Name Freq PRN Reason Stop Dose Admin Acetaminophen 650 mg 07/09/21 16:02 07/14/21 05:10 Acetaminophen 325 Mg Tablet PO 650 mg Q6H PRN Administration Headache/Pain Mild Scale (1-3) Al Hydroxide/Mg Hydroxide 30 ml 07/09/21 16:02 Magnesium Hydrox/Alum Hydrox 30 Ml Oral.Susp PO Q6H PRN Heartburn/Nausea Albuterol Sulfate 2 puff 07/09/21 17:08 07/15/21 06:36 Albuterol Sulfate 90 Mcg 8 Gm Inhaler INHALE 2 puff Q6H PRN Administration Shortness of Breath/Wheezing Amlodipine Besylate 10 mg 07/12/21 09:00 07/15/21 06:23 Amlodipine Besylate 5 Mg Tablet PO 10 mg DAILY TAZ Administration Protocol Brexpiprazole 1 mg 07/12/21 09:30 07/14/21 09:04 Brexpiprazole 1 Mg Tablet PO 1 mg DAILY TAZ Administration Docusate Sodium 100 mg 07/09/21 21:00 07/14/21 20:13 Docusate Sodium 100 Mg Capsule PO 100 mg BID TAZ Administration Escitalopram Oxalate 10 mg 07/10/21 09:00 07/14/21 09:05 Escitalopram Oxalate 10 Mg Tablet PO 10 mg DAILY TAZ Administration Finasteride 5 mg 07/10/21 09:00 07/14/21 09:05 Finasteride 5 Mg Tablet PO 5 mg DAILY TAZ Administration Gabapentin 300 mg 07/09/21 21:00 07/14/21 20:10 Gabapentin 300 Mg Capsule PO Not Given TID [facility] Hydrocortisone 1 appl 07/10/21 13:41 07/13/21 20:58 Hydrocortisone 1 % Ointment 28.35 Gm Tube TOPICAL 1 appl BID PRN Administration Perineal Discomfort Protocol Ibuprofen 400 mg 07/10/21 13:25 07/14/21 09:10 Ibuprofen 400 Mg Tablet PO 400 mg Q6H PRN Administration Pain, Moderate (Pain Scale 4-6 Lamotrigine 100 mg 07/09/21 21:00 07/14/21 20:10 Lamotrigine 100 Mg Tablet PO Not Given BID [facility] Latanoprost 1 drop 07/09/21 21:00 07/14/21 20:15 Latanoprost 0.005 % Ophth No 2.5 Ml Drops EYE-BOTH 1 drop BEDTIME TAZ Administration Lisinopril 40 mg 07/10/21 09:00 07/15/21 06:22 Lisinopril 40 Mg Tablet PO 40 mg DAILY TAZ Administration Protocol Magnesium Hydroxide 30 ml 07/09/21 16:02 07/13/21 14:16 Milk Of Magnesia 30 Ml Oral.Susp PO 30 ml DAILY PRN Administration Constipation Melatonin 6 mg 07/09/21 21:00 07/14/21 20:13 Melatonin 3 Mg Tablet PO 6 mg BEDTIME TAZ Administration Mirtazapine 30 mg 07/09/21 21:00 07/14/21 20:13 Mirtazapine 30 Mg Tablet PO 30 mg BEDTIME TAZ Administration Multivitamins/Minerals 1 tab 07/10/21 09:00 07/14/21 09:06 Multivitamin With Minerals Tablet PO 1 tab DAILY TAZ Administration Polyethylene Glycol 17 gm 07/09/21 17:08 07/13/21 18:45 Polyethylene Glycol 3350 17 Gm Powd.Pack PO 17 gm DAILY PRN Administration Constipation Psyllium Hydrophilic Mucilloid 3.4 gm 07/10/21 09:00 07/14/21 09:06 Psyllium Seed 3.4 Gm Powd.Pack PO 3.4 gm DAILY TAZ Administration Sodium Biphosphate/Sodium Phosphate 133 ml 07/09/21 17:08 Sodium Phosphate,[place]-Dibasic 133 Ml Enema [place] ONCE PRN Constipation Trazodone HCl 300 mg 07/13/21 21:00 07/14/21 20:13 Trazodone Hcl 100 Mg Tablet PO 300 mg BEDTIME TAZ Administration Home Medications Medication Instructions Recorded Confirmed Last Taken Type Tylenol 650 mg PO Q6-8H PRN 05/22/21 05/22/21 Unknown History albuterol 90 mcg/actuation aerosol See Rx Instructions .ROUTE .COMPLEX 05/22/21 05/22/21 Unknown History inhaler clotrimazole 1 % topical solution See Rx Instructions .ROUTE 05/22/21 05/22/21 Unknown History .COMPLEX PRN dextromethorphan-guaifenesin 10 10 ml PO Q6-8H PRN 05/22/21 05/22/21 Unknown History mg-200 mg/5 mL oral liquid docusate sodium 100 mg capsule 1 cap PO BID 05/22/21 05/22/21 Unknown History docusate sodium 100 mg capsule See Rx Instructions .ROUTE 05/22/21 05/22/21 Unknown History .COMPLEX PRN finasteride 5 mg tablet 1 tab PO DAILY 05/22/21 05/22/21 Unknown History glycerin 1 drp OPHTHALMIC (EYE) Q1-2H PRN 05/22/21 05/22/21 Unknown History latanoprost 0.005 % eye drops 1 drp OPHTHALMIC (EYE) DAILY 05/22/21 05/22/21 Unknown History magnesium hydroxide 400 mg/5 mL 2,400 mg PO PRN 05/22/21 Unknown History oral suspension (Milk of Magnesia) melatonin 5 mg tablet 5 mg PO BEDTIME 05/22/21 05/22/21 Unknown History nsmhmdbedglp-qhnjbtjy-ompvqi tablet 1 tab PO DAILY 05/22/21 05/22/21 Unknown History polyethylene glycol 3350 17 17 g PO DAILY 05/22/21 05/22/21 Unknown History gram/dose oral powder polyethylene glycol 3350 17 17 g PO DAILY PRN 05/22/21 05/22/21 Unknown History gram/dose oral powder psyllium husk 0.4 gram capsule 0.4 g PO DAILY 05/22/21 05/22/21 Unknown History (Metamucil) sodium phosphates 19 gram-7 118 ml MT DAILY PRN 05/22/21 05/22/21 Unknown History gram/118 mL enema (Fleet Enema) trazodone 150 mg tablet 2 tab PO BEDTIME 05/22/21 05/22/21 Unknown History Exam Exam Date and Time: July 15, 2021 0804 Height,Weight and Vital Signs: Height 6 ft 2 in Weight 104.7 kg Last Vital Signs Temp 98 F 07/15/21 06:50 Pulse 78 07/15/21 06:50 Resp 20 07/15/21 06:50 BP 177/89 H 07/15/21 06:50 Pulse Ox 99 07/15/21 06:50 Pertinent Lab Results Pertinent Lab Results: Laboratory Tests 07/09/21 07/09/21 07/09/21 14:02 14:05 14:05 WBC 6.3 RBC 4.32 L Hgb 14.3 Hct 42.7 MCV 98.8 H MCH 33.1 H MCHC 33.5 RDW 11.8 Plt Count 195 MPV 10.2 Immature Gran % (Auto) 0.8 H Neut % (Auto) 58.9 Lymph % (Auto) 28.6 [place] % (Auto) 7.8 Eos % (Auto) 3.6 Baso % (Auto) 0.3 Lymph # (Auto) 1.8 [place] # (Auto) 0.5 Eos # (Auto) 0.2 Baso # (Auto) 0.0 Abs Immat Gran (auto) 0.05 H Absolute Neuts (auto) 3.7 Absolute Nucleated RBC 0.000 Nucleated RBC % (auto) 0.0 Sodium 141 Potassium 4.2 Chloride 107 Carbon Dioxide 24 Anion Gap 14 BUN 19 H Creatinine 0.85 Estim Creat Clear Calc Not Reportable Estimated GFR > 60 Random Glucose 73 Calcium 9.7 Total Bilirubin 0.7 AST 29 ALT 46 H Alkaline Phosphatase 68 D Total Protein 7.2 Albumin 4.7 COVID-19 (RACHEL) Negative COVID-19 Clin Com See Note Airway Mallampati Class: III TM Dist: >3cm Neck ROM: Full Assessment and Plan Assessment Anesthesia Assessment: Anesthesia Plan Discussed and Chart Reviewed Final Anesthetic Review Family History of Problems with Anesthesia: No History of Problems with Anesthesia: No NPO: Yes ASA Class: III Final Preanesthetic Review: No Changes in Pt Med Stat, Meds/Allgs Chart Reviewed, Consent Obtained/Reviewed and Anes Risks/Benef Reviewed Patient Risk: Intermediate Procedure Risk: Low Assessment/Block/Sedation in SS: Assess/Block/Sedation-SS Anesthetic Plan Anesthetic Plan: GA Disposition: Standard PACU
[2021-07-15] MEDS: Finasteride 5 MG TABLET PO (09:30)
[2021-07-15] MEDS: Brexpiprazole 1 MG TABLET PO (09:30)
[2021-07-15] MEDS: Docusate Sodium 100 MG CAPSULE PO ×2 (09:30→21:19)
[2021-07-15] MEDS: Escitalopram Oxalate 10 MG TABLET PO (09:30)
[2021-07-15] MEDS: Gabapentin 300 MG CAPSULE PO ×3 (09:30→21:19)
[2021-07-15] MEDS: lamoTRIgine 100 MG TABLET PO ×2 (09:30→21:19)
[2021-07-15] MEDS: Ibuprofen 400 MG TABLET PO (09:50)
[2021-07-15] MEDS: Acetaminophen 325 MG TABLET 650 MG PO (14:35)
[2021-07-15] MEDS: traZODone HCL 100 MG TABLET 300 MG PO (21:18)
[2021-07-15] MEDS: Mirtazapine 30 MG TABLET PO (21:18)
[2021-07-15] MEDS: Melatonin 3 MG TABLET 6 MG PO (21:19)
[2021-07-15] MEDS: Latanoprost 0.005 % Ophth Sol 2.5 ML DROPS 1 DROP EYE-BOTH (21:20)
--- NOTE | 2021-07-15 22:08 | P.PNPSI_ITS ---
Subjective Subjective Date of Service: 07/15/21 Reason For Visit: Depression SI Subjective Notes: Conditional Voluntary Interim History: Patient remains quite depressed hopeless helpless Medication Compliance: Yes Mental Status Exam Mental Status Exam Patient Appearance: Well Grooomed Patient Orientation: Person, Place, Time and Situation Level of Consciousness: Awake and Appropriate Patient Behavior: Cooperative and Anxious Mood Description: Withdrawn, Depressed, Blunted and Sad Affect Description: Constricted, Depressed, Anxious, Blunted and Nervous Patient Cognition Impaired: No Ability to Follow Directions: Good Speech Pattern: Clear Memory Description: Intact Hallucinations: None Delusions: Not Present Thought Process: Rumination and Goal Oriented Thought Content: positive for Intact, positive for Circumstantial and positive f or Suicidal Ideation (thoughts go into traffic ) Depressive Symptoms: Increased Anxiety, Increased Irritability, Thoughts of /Suicide and Difficulty Concentrating Judgement: Fair Diagnostics Vital Signs (24Hr): Vital Signs - 24 hr 07/15/21 06:23 07/15/21 06:33 07/15/21 06:50 Temperature 97.9 F 98 F Pulse Rate 67 67 78 Respiratory Rate 20 20 Blood Pressure 175/91 H 175/91 H 177/89 H Pulse Oximetry 96 99 07/15/21 08:28 07/15/21 08:33 07/15/21 08:38 Temperature 98.2 F Pulse Rate 81 76 76 Respiratory Rate 16 20 16 Blood Pressure 196/95 H 173/97 H 177/96 H Pulse Oximetry 95 95 95 07/15/21 08:43 07/15/21 08:57 07/15/21 09:05 Temperature 98.7 F Pulse Rate 73 73 70 Respiratory Rate 16 18 16 Blood Pressure 174/97 H 161/77 H 152/87 H Pulse Oximetry 95 92 95 07/15/21 09:59 07/15/21 18:00 Temperature 98.7 F 98.5 F Pulse Rate 70 66 Respiratory Rate 16 18 Blood Pressure 152/87 H 144/78 H Pulse Oximetry 95 96 Body Mass Index 29.6 Labs Results: 07/09/21 14:05 07/09/21 14:05 Medications Medications Current Medications Generic Name Dose Route Start Last Admin Trade Name Freq PRN Reason Stop Dose Admin Acetaminophen 650 mg 07/09/21 16:02 07/15/21 14:35 Acetaminophen 325 Mg Tablet PO 650 mg Q6H PRN Administration Headache/Pain Mild Scale (1-3) Al Hydroxide/Mg Hydroxide 30 ml 08/24/21 16:02 Magnesium Hydrox/Alum Hydrox 30 Ml Oral.Susp PO Q6H PRN Heartburn/Nausea Albuterol Sulfate 2 puff 07/09/21 17:08 07/15/21 21:44 Albuterol Sulfate 90 Mcg 8 Gm Inhaler INHALE 2 puff Q6H PRN Administration Shortness of Breath/Wheezing Amlodipine Besylate 10 mg 07/12/21 09:00 07/15/21 06:23 Amlodipine Besylate 5 Mg Tablet PO 10 mg DAILY TAZ Administration Protocol Brexpiprazole 1 mg 07/12/21 09:30 07/15/21 09:30 Brexpiprazole 1 Mg Tablet PO 1 mg DAILY TAZ Administration Docusate Sodium 100 mg 07/09/21 21:00 07/15/21 21:19 Docusate Sodium 100 Mg Capsule PO 100 mg BID TAZ Administration Escitalopram Oxalate 10 mg 07/10/21 09:00 07/15/21 09:30 Escitalopram Oxalate 10 Mg Tablet PO 10 mg DAILY TAZ Administration Finasteride 5 mg 07/10/21 09:00 07/15/21 09:30 Finasteride 5 Mg Tablet PO 5 mg DAILY TAZ Administration Gabapentin 300 mg 07/09/21 21:00 07/15/21 21:19 Gabapentin 300 Mg Capsule PO 300 mg TID TAZ Administration Hydrocortisone 1 appl 07/10/21 13:41 07/13/21 20:58 Hydrocortisone 1 % Ointment 28.35 Gm Tube TOPICAL 1 appl BID PRN Administration Perineal Discomfort Protocol Ibuprofen 400 mg 07/10/21 13:25 07/15/21 09:50 Ibuprofen 400 Mg Tablet PO 400 mg Q6H PRN Administration Pain, Moderate (Pain Scale 4-6 Lamotrigine 100 mg 07/09/21 21:00 07/15/21 21:19 Lamotrigine 100 Mg Tablet PO 100 mg BID TAZ Administration Latanoprost 1 drop 07/09/21 21:00 07/15/21 21:20 Latanoprost 0.005 % Ophth No 2.5 Ml Drops EYE-BOTH 1 drop BEDTIME TAZ Administration Lisinopril 40 mg 07/10/21 09:00 07/15/21 06:22 Lisinopril 40 Mg Tablet PO 40 mg DAILY TAZ Administration Protocol Magnesium Hydroxide 30 ml 07/09/21 16:02 07/13/21 14:16 Milk Of Magnesia 30 Ml Oral.Susp PO 30 ml DAILY PRN Administration Constipation Melatonin 6 mg 07/09/21 21:00 07/15/21 21:19 Melatonin 3 Mg Tablet PO 6 mg BEDTIME TAZ Administration Mirtazapine 30 mg 07/09/21 21:00 07/15/21 21:18 Mirtazapine 30 Mg Tablet PO 30 mg BEDTIME TAZ Administration Multivitamins/Minerals 1 tab 07/10/21 09:00 07/15/21 09:30 Multivitamin With Minerals Tablet PO 1 tab DAILY TAZ Administration Polyethylene Glycol 17 gm 07/09/21 17:08 07/13/21 18:45 Polyethylene Glycol 3350 17 Gm Powd.Pack PO 17 gm DAILY PRN Administration Constipation Psyllium Hydrophilic Mucilloid 3.4 gm 07/10/21 09:00 07/15/21 09:29 Psyllium Seed 3.4 Gm Powd.Pack PO 3.4 gm DAILY TAZ Administration Sodium Biphosphate/Sodium Phosphate 133 ml 07/09/21 17:08 Sodium Phosphate,[place]-Dibasic 133 Ml Enema [place] ONCE PRN Constipation Trazodone HCl 300 mg 07/13/21 21:00 07/15/21 21:18 Trazodone Hcl 100 Mg Tablet PO 300 mg BEDTIME TAZ Administration Allergies Allergies Allergy/AdvReac Type Severity Reaction Status Date / Time fentanyl [FENTANYL] Allergy Intermediate unknown Verified 05/22/21 11:43 Assessment & Plan Assessment & Plan (1) Major depressive disorder, recurrent severe without psychotic features: Status: Acute Code(s): F33.2 - Major depressive disorder, recurrent severe without psychotic features Assessment and Plan: Continue ECT [facility] (2) Cognitive and neurobehavioral dysfunction following brain injury: Status: Acute Code(s): G31.89 - Other specified degenerative diseases of nervous system; F09 - Unspecified mental disorder due to known physiological condition; S06.9X9S - Unspecified intracranial injury with loss of consciousness of unspecified duration, sequela (3) HTN (hypertension): Status: Acute Code(s): I10 - Essential (primary) hypertension Assessment and Plan: ReStart ECT . [facility] ECT for tomorrow her amlodipine increased to 10 mg daily for hypertension monitor for self-harming behavior Continue ECT monitor response to [facility] hosp consult rash pruritis Greater than 50% of the session was spent on counseling and/or coordination of care Reason for contiued inpatient stay Substantial Risk for: harm to self, rapid decompensation and med/psych decom pensation
[2021-07-16] MEDS: Acetaminophen 325 MG TABLET 650 MG PO (06:04)
[2021-07-16 09:22] VITALS: BP 147/73; PULSE 60; RESP 18; TEMP 36.6; O2SAT 98
[2021-07-16 09:37] VITALS: BP 147/63; PULSE 60
[2021-07-16] MEDS: Escitalopram Oxalate 10 MG TABLET PO (09:37)
[2021-07-16] MEDS: amLODIPine Besylate 5 MG TABLET 10 MG PO (09:37)
[2021-07-16 09:38] VITALS: BP 147/63; PULSE 60
[2021-07-16] MEDS: lisinopriL 40 MG TABLET PO (09:38)
[2021-07-16] MEDS: Docusate Sodium 100 MG CAPSULE PO ×2 (09:38→21:21)
[2021-07-16] MEDS: Brexpiprazole 1 MG TABLET PO (09:38)
[2021-07-16] MEDS: Gabapentin 300 MG CAPSULE PO ×3 (09:38→21:21)
[2021-07-16] MEDS: Finasteride 5 MG TABLET PO (09:39)
[2021-07-16] MEDS: lamoTRIgine 100 MG TABLET PO ×2 (09:39→21:21)
[2021-07-16] MEDS: Albuterol Sulfate 90 MCG 8 GM INHALER 2 PUFF INHALE (09:53)
[2021-07-16] MEDS: Brexpiprazole 1 MG TABLET 0.5 MG PO (10:35)
[2021-07-16] MEDS: QUEtiapine Fumarate 25 MG TABLET PO ×2 (11:22→18:52)
--- NOTE | 2021-07-16 13:51 | HO.PSYCHPN ---
Subjective Subjective Date of Service: 07/16/21 Reason For Visit: Depression SI Subjective Notes: Conditional Voluntary Medication Compliance: Yes Mental Status Exam Mental Status Exam Patient Appearance: Well Grooomed Patient Orientation: Person, Place, Time and Situation Level of Consciousness: Awake and Appropriate Patient Behavior: Cooperative and Anxious Mood Description: Withdrawn, Depressed, Blunted and Sad Affect Description: Constricted, Depressed, Anxious, Blunted and Nervous Patient Cognition Impaired: No Ability to Follow Directions: Good Speech Pattern: Clear Memory Description: Intact Hallucinations: None Delusions: Not Present Thought Process: Rumination and Goal Oriented Thought Content: positive for Intact, positive for Circumstantial and positive for Suicidal Ideation (thoughts go into traffic ) Depressive Symptoms: Increased Anxiety, Increased Irritability, Thoughts of /Suicide and Difficulty Concentrating Judgement: Fair Diagnostics Vital Signs (24Hr): Vital Signs - 24 hr 07/15/21 18:00 07/16/21 09:22 07/16/21 09:37 Temperature 98.5 F 97.8 F Pulse Rate 66 60 60 Respiratory Rate 18 18 Blood Pressure 144/78 H 147/73 H 147/63 H Pulse Oximetry 96 98 07/16/21 09:38 Temperature Pulse Rate 60 Respiratory Rate Blood Pressure 147/63 H Pulse Oximetry Body Mass Index 29.6 Labs Results: 07/09/21 14:05 07/09/21 14:05 Medications Medications Current Medications Generic Name Dose Route Start Last Admin Trade Name Freq PRN Reason Stop Dose Admin Acetaminophen 650 mg 07/09/21 16:02 07/16/21 06:04 Acetaminophen 325 Mg Tablet PO 650 mg Q6H PRN Administration Headache/Pain Mild Scale (1-3) Al Hydroxide/Mg Hydroxide 30 ml 07/09/21 16:02 Magnesium Hydrox/Alum Hydrox 30 Ml Oral.Susp PO Q6H PRN Heartburn/Nausea Albuterol Sulfate 2 puff 07/09/21 17:08 07/16/21 09:53 Albuterol Sulfate 90 Mcg 8 Gm Inhaler INHALE 2 puff Q6H PRN Administration Shortness of Breath/Wheezing Amlodipine Besylate 10 mg 07/12/21 09:00 07/16/21 09:37 Amlodipine Besylate 5 Mg Tablet PO 10 mg DAILY TAZ Administration Protocol Brexpiprazole 1 mg 07/12/21 09:30 07/16/21 09:38 Brexpiprazole 1 Mg Tablet PO 1 mg DAILY TAZ Administration Docusate Sodium 100 mg 07/09/21 21:00 07/16/21 09:38 Docusate Sodium 100 Mg Capsule PO 100 mg BID TAZ Administration Escitalopram Oxalate 10 mg 07/10/21 09:00 07/16/21 09:37 Escitalopram Oxalate 10 Mg Tablet PO 10 mg DAILY TAZ Administration Finasteride 5 mg 07/10/21 09:00 07/16/21 09:39 Finasteride 5 Mg Tablet PO 5 mg DAILY TAZ Administration Gabapentin 300 mg 07/09/21 21:00 07/16/21 09:38 Gabapentin 300 Mg Capsule PO 300 mg TID TAZ Administration Hydrocortisone 1 appl 07/10/21 13:41 07/13/21 20:58 Hydrocortisone 1 % Ointment 28.35 Gm Tube TOPICAL 1 appl BID PRN Administration Perineal Discomfort Protocol Ibuprofen 400 mg 07/10/21 13:25 07/15/21 09:50 Ibuprofen 400 Mg Tablet PO 400 mg Q6H PRN Administration Pain, Moderate (Pain Scale 4-6 Lamotrigine 100 mg 07/09/21 21:00 07/16/21 09:39 Lamotrigine 100 Mg Tablet PO 100 mg BID TAZ Administration Latanoprost 1 drop 07/09/21 21:00 07/15/21 21:20 Latanoprost 0.005 % Ophth No 2.5 Ml Drops EYE-BOTH 1 drop BEDTIME TAZ Administration Lisinopril 40 mg 07/10/21 09:00 07/16/21 09:38 Lisinopril 40 Mg Tablet PO 40 mg DAILY TAZ Administration Protocol Magnesium Hydroxide 30 ml 07/09/21 16:02 07/13/21 14:16 Milk Of Magnesia 30 Ml Oral.Susp PO 30 ml DAILY PRN Administration Constipation Melatonin 6 mg 07/09/21 21:00 07/15/21 21:19 Melatonin 3 Mg Tablet PO 6 mg BEDTIME TAZ Administration Mirtazapine 30 mg 07/09/21 21:00 07/15/21 21:18 Mirtazapine 30 Mg Tablet PO 30 mg BEDTIME TAZ Administration Multivitamins/Minerals 1 tab 07/10/21 09:00 07/16/21 09:38 Multivitamin With Minerals Tablet PO 1 tab DAILY TAZ Administration Polyethylene Glycol 17 gm 07/09/21 17:08 07/13/21 18:45 Polyethylene Glycol 3350 17 Gm Powd.Pack PO 17 gm DAILY PRN Administration Constipation Psyllium Hydrophilic Mucilloid 3.4 gm 07/10/21 09:00 07/16/21 09:39 Psyllium Seed 3.4 Gm Powd.Pack PO 3.4 gm DAILY TAZ Administration Quetiapine Fumarate 25 mg 07/16/21 10:00 07/16/21 11:22 Quetiapine Fumarate 25 Mg Tablet PO 25 mg Q4H PRN Administration Anxiety Sodium Biphosphate/Sodium Phosphate 133 ml 07/09/21 17:08 Sodium Phosphate,[place]-Dibasic 133 Ml Enema [place] ONCE PRN Constipation Trazodone HCl 300 mg 07/13/21 21:00 07/15/21 21:18 Trazodone Hcl 100 Mg Tablet PO 300 mg BEDTIME TAZ Administration Allergies Allergies Allergy/AdvReac Type Severity Reaction Status Date / Time fentanyl [FENTANYL] Allergy Intermediate unknown Verified 05/22/21 11:43 Assessment & Plan Assessment & Plan (1) Major depressive disorder, recurrent severe without psychotic features: Status: Acute Code(s): F33.2 - Major depressive disorder, recurrent severe without psychotic features Assessment and Plan: Continue ECT [facility] mirtazapine re-evaluate after tomorrow's ECT (2) Cognitive and neurobehavioral dysfunction following brain injury: Status: Acute Code(s): G31.89 - Other specified degenerative diseases of nervous system; F09 - Unspecified mental disorder due to known physiological condition; S06.9X9S - Unspecified intracranial injury with loss of consciousness of unspecified duration, sequela (3) HTN (hypertension): Status: Acute Code(s): I10 - Essential (primary) hypertension Assessment and Plan: ReStart ECT . [facility] ECT for tomorrow her amlodipine increased to 10 mg daily for hypertension monitor for self-harming behavior Continue ECT monitor response to [facility] hosp consult rash pruritis Greater than 50% of the session was spent on counseling and/or coordination of care Reason for contiued inpatient stay Substantial Risk for: harm to self
[2021-07-16] MEDS: Ibuprofen 400 MG TABLET PO (18:52)
[2021-07-16 20:20] VITALS: BP 150/72; PULSE 68; RESP 18; TEMP 36.6; O2SAT 95
[2021-07-16] MEDS: Mirtazapine 30 MG TABLET PO (21:20)
[2021-07-16] MEDS: Melatonin 3 MG TABLET 6 MG PO (21:20)
[2021-07-16] MEDS: traZODone HCL 100 MG TABLET 300 MG PO (21:21)
[2021-07-16] MEDS: Hydrocortisone 1 % Ointment 28.35 GM TUBE 1 APPL TOPICAL (21:22)
[2021-07-16] MEDS: Latanoprost 0.005 % Ophth Sol 2.5 ML DROPS 1 DROP EYE-BOTH (21:22)
[2021-07-17] VITALS (12 sets, daily range): BP systolic 119–173; BP diastolic 68–96; PULSE 61–78; RESP 16–18; TEMP 36.3–37; O2SAT 96–99; BMI 28.8
[2021-07-17] MEDS: lisinopriL 40 MG TABLET PO (06:16)
[2021-07-17] MEDS: amLODIPine Besylate 5 MG TABLET 10 MG PO (06:16)
[2021-07-17] MEDS: Lactated Ringers 1,000 ML 50 ML IVCONT (06:45)
--- NOTE | 2021-07-17 08:29 | MHC.SHP ---
Pre-Procedural Eval Section A Date of Service: 07/17/21 The patient is an INPATIENT: Yes Changes since office visit: No Cold of Flu in the past 2 weeks, No New Medical Problems, No Changes in Medication and No Patient answered all questions The History & Physical has been completed within 30 days and I have reviewed it.: Yes Section B Chief Complaint: Depression SI Allergies: Allergies Allergy/AdvReac Type Severity Reaction Status Date / Time fentanyl [FENTANYL] Allergy Intermediate unknown Verified 05/22/21 11:43 Plan I have reviewed the history and physical and performed a pertinent physical examination on my patient. No changes have occurred unless specified.
--- NOTE | 2021-07-17 08:30 | HO.ECTPROC ---
ECT Procedure Note Diagnosis/Treatment Date of Service: 07/17/21 Previous ECT Date: 07/15/21 Interval Clinical Notes: Still dysphoric but feels better with treatment ECT Settings Device: THYMATRON DGx Electrode Placement: Bifrontal Program/Pulse Width: 0.50 Energy Percent: 100 Seizure Duration By EEG (in seconds): 45 By Motor Observation (in seconds): 21 Medications Administration General Anesthetic: Etomidate (16) Muscle Relaxant: Succinylcholine (100) Ancillary Medications Analgesics: Torodol - Pre ECT Anti-emetics: Zofran - Pre ECT Miscillaneous Medications: Propofol (30) Airway Management Airway Management: Bag Mask Ventilation Treatment Recommendations No Changes Recommended: No change
--- NOTE | 2021-07-17 08:54 | HO.ANESPROP2 ---
[facility] Active Problems Active Problems: All Active Problems (Updated 05/24/21 @ 23:38 by Addy Haskins MD) Major depressive disorder, recurrent severe without psychotic features (Acute) Cognitive and neurobehavioral dysfunction following brain injury (Acute) HTN (hypertension) (Acute) Past Medical History Medical History Alcohol use disorder, severe, in sustained remission Cognitive and neurobehavioral dysfunction following brain injury Hernia HTN (hypertension) Major depressive disorder, recurrent Major depressive disorder, recurrent severe without psychotic features Functional capacity: independent ambulation Family History Family history of problems with anesthesia: No Surgical History Surgical History H/O brain surgery History of hip replacement S/P cholecystectomy History of Problems with Anesthesia: No Social History Social History Household Members: Caregiver and Other Household Members Other:: Pt lives in a long-term Housing: Other Housing Other:: Detention Do you presently have visiting nurse or other home services: No Patient Tobacco Use Status: Never used Tobacco Use of substances other than those prescribed or required for medical reasons: No Are you DNR?: No Advance Directives: Yes Advance Directives on File: Yes Advance Directives Date on File: 05/27/19 Recently lost weight without trying: Yes How much weight loss: 2-13 pounds Nutrition Risks: No Nutritional Risk service: No Sexual orientation: Straight/Heterosexual Meds Allergies Allergy/AdvReac Type Severity Reaction Status Date / Time fentanyl [FENTANYL] Allergy Intermediate unknown Verified 05/22/21 11:43 Active Medications: Current Medications Generic Name Dose Route Start Last Admin Trade Name Freq PRN Reason Stop Dose Admin Acetaminophen 650 mg 07/09/21 16:02 07/16/21 06:04 Acetaminophen 325 Mg Tablet PO 650 mg Q6H PRN Administration Headache/Pain Mild Scale (1-3) Al Hydroxide/Mg Hydroxide 30 ml 07/09/21 16:02 Magnesium Hydrox/Alum Hydrox 30 Ml Oral.Susp PO Q6H PRN Heartburn/Nausea Albuterol Sulfate 2 puff 07/09/21 17:08 07/16/21 09:53 Albuterol Sulfate 90 Mcg 8 Gm Inhaler INHALE 2 puff Q6H PRN Administration Shortness of Breath/Wheezing Amlodipine Besylate 10 mg 07/12/21 09:00 07/17/21 06:16 Amlodipine Besylate 5 Mg Tablet PO 10 mg DAILY TAZ Administration Protocol Brexpiprazole 1 mg 07/12/21 09:30 07/16/21 09:38 Brexpiprazole 1 Mg Tablet PO 1 mg DAILY TAZ Administration Docusate Sodium 100 mg 07/09/21 21:00 07/16/21 21:21 Docusate Sodium 100 Mg Capsule PO 100 mg BID TAZ Administration Escitalopram Oxalate 10 mg 07/10/21 09:00 07/16/21 09:37 Escitalopram Oxalate 10 Mg Tablet PO 10 mg DAILY TAZ Administration Finasteride 5 mg 07/10/21 09:00 07/16/21 09:39 Finasteride 5 Mg Tablet PO 5 mg DAILY TAZ Administration Gabapentin 300 mg 07/09/21 21:00 07/16/21 21:21 Gabapentin 300 Mg Capsule PO 300 mg TID TAZ Administration Hydrocortisone 1 appl 07/10/21 13:41 07/16/21 21:22 Hydrocortisone 1 % Ointment 28.35 Gm Tube TOPICAL 1 appl BID PRN Administration Perineal Discomfort Protocol Ibuprofen 400 mg 07/10/21 13:25 07/16/21 18:52 Ibuprofen 400 Mg Tablet PO 400 mg Q6H PRN Administration Pain, Moderate (Pain Scale 4-6 Lamotrigine 100 mg 07/09/21 21:00 07/16/21 21:21 Lamotrigine 100 Mg Tablet PO 100 mg BID TAZ Administration Latanoprost 1 drop 07/09/21 21:00 07/16/21 21:22 Latanoprost 0.005 % Ophth No 2.5 Ml Drops EYE-BOTH 1 drop BEDTIME TAZ Administration Lisinopril 40 mg 07/10/21 09:00 07/17/21 06:16 Lisinopril 40 Mg Tablet PO 40 mg DAILY TAZ Administration Protocol Magnesium Hydroxide 30 ml 07/09/21 16:02 07/13/21 14:16 Milk Of Magnesia 30 Ml Oral.Susp PO 30 ml DAILY PRN Administration Constipation Melatonin 6 mg 07/09/21 21:00 07/16/21 21:20 Melatonin 3 Mg Tablet PO 6 mg BEDTIME TAZ Administration Mirtazapine 30 mg 07/09/21 21:00 07/16/21 21:20 Mirtazapine 30 Mg Tablet PO 30 mg BEDTIME TAZ Administration Multivitamins/Minerals 1 tab 07/10/21 09:00 07/16/21 09:38 Multivitamin With Minerals Tablet PO 1 tab DAILY TAZ Administration Polyethylene Glycol 17 gm 07/09/21 17:08 07/13/21 18:45 Polyethylene Glycol 3350 17 Gm Powd.Pack PO 17 gm DAILY PRN Administration Constipation Psyllium Hydrophilic Mucilloid 3.4 gm 07/10/21 09:00 07/16/21 09:39 Psyllium Seed 3.4 Gm Powd.Pack PO 3.4 gm DAILY TAZ Administration Quetiapine Fumarate 25 mg 07/16/21 10:00 07/16/21 18:52 Quetiapine Fumarate 25 Mg Tablet PO 25 mg Q4H PRN Administration Anxiety Sodium Biphosphate/Sodium Phosphate 133 ml 07/09/21 17:08 Sodium Phosphate,[place]-Dibasic 133 Ml Enema OR ONCE PRN Constipation Trazodone HCl 300 mg 07/13/21 21:00 07/16/21 21:21 Trazodone Hcl 100 Mg Tablet PO 300 mg BEDTIME TAZ Administration Home Medications Medication Instructions Recorded Confirmed Last Taken Type Tylenol 650 mg PO Q6-8H PRN 05/22/21 05/22/21 Unknown History albuterol 90 mcg/actuation aerosol See Rx Instructions .ROUTE .COMPLEX 05/22/21 05/22/21 Unknown History inhaler clotrimazole 1 % topical solution See Rx Instructions .ROUTE 05/22/21 05/22/21 Unknown History .COMPLEX PRN dextromethorphan-guaifenesin 10 10 ml PO Q6-8H PRN 05/22/21 05/22/21 Unknown History mg-200 mg/5 mL oral liquid docusate sodium 100 mg capsule 1 cap PO BID 05/22/21 05/22/21 Unknown History docusate sodium 100 mg capsule See Rx Instructions .ROUTE 05/22/21 05/22/21 Unknown History .COMPLEX PRN finasteride 5 mg tablet 1 tab PO DAILY 05/22/21 05/22/21 Unknown History glycerin 1 drp OPHTHALMIC (EYE) Q1-2H PRN 05/22/21 05/22/21 Unknown History latanoprost 0.005 % eye drops 1 drp OPHTHALMIC (EYE) DAILY 05/22/21 05/22/21 Unknown History magnesium hydroxide 400 mg/5 mL 2,400 mg PO PRN 05/22/21 Unknown History oral suspension (Milk of Magnesia) melatonin 5 mg tablet 5 mg PO BEDTIME 05/22/21 05/22/21 Unknown History ubeocnwxxakv-wcjteqbz-iywkqv tablet 1 tab PO DAILY 05/22/21 05/22/21 Unknown History polyethylene glycol 3350 17 17 g PO DAILY 05/22/21 05/22/21 Unknown History gram/dose oral powder polyethylene glycol 3350 17 17 g PO DAILY PRN 05/22/21 05/22/21 Unknown History gram/dose oral powder psyllium husk 0.4 gram capsule 0.4 g PO DAILY 05/22/21 05/22/21 Unknown History (Metamucil) sodium phosphates 19 gram-7 118 ml OR DAILY PRN 05/22/21 05/22/21 Unknown History gram/118 mL enema (Fleet Enema) trazodone 150 mg tablet 2 tab PO BEDTIME 05/22/21 05/22/21 Unknown History Exam Exam Date and Time: July 17, 2021 0854 Height,Weight and Vital Signs: Height 6 ft 2 in Weight 102.058 kg Last Vital Signs Temp 98.6 F 07/17/21 06:44 Pulse 62 07/17/21 06:44 Resp 17 07/17/21 06:44 BP 173/87 H 07/17/21 06:44 Pulse Ox 99 07/17/21 06:44 Pertinent Lab Results Pertinent Lab Results: Laboratory Tests 07/09/21 07/09/21 07/09/21 14:02 14:05 14:05 WBC 6.3 RBC 4.32 L Hgb 14.3 Hct 42.7 MCV 98.8 H MCH 33.1 H MCHC 33.5 RDW 11.8 Plt Count 195 MPV 10.2 Immature Gran % (Auto) 0.8 H Neut % (Auto) 58.9 Lymph % (Auto) 28.6 [place] % (Auto) 7.8 Eos % (Auto) 3.6 Baso % (Auto) 0.3 Lymph # (Auto) 1.8 [place] # (Auto) 0.5 Eos # (Auto) 0.2 Baso # (Auto) 0.0 Abs Immat Gran (auto) 0.05 H Absolute Neuts (auto) 3.7 Absolute Nucleated RBC 0.000 Nucleated RBC % (auto) 0.0 Sodium 141 Potassium 4.2 Chloride 107 Carbon Dioxide 24 Anion Gap 14 BUN 19 H Creatinine 0.85 Estim Creat Clear Calc Not Reportable Estimated GFR > 60 Random Glucose 73 Calcium 9.7 Total Bilirubin 0.7 AST 29 ALT 46 H Alkaline Phosphatase 68 D Total Protein 7.2 Albumin 4.7 COVID-19 (RACHEL) Negative COVID-19 Clin Com See Note Airway TM Dist: >3cm Heart: RRR Lungs: CTA Assessment and Plan Final Anesthetic Review Family History of Problems with Anesthesia: No History of Problems with Anesthesia: No
[2021-07-17] MEDS: Gabapentin 300 MG CAPSULE PO ×3 (10:30→20:35)
[2021-07-17] MEDS: Finasteride 5 MG TABLET PO (10:30)
[2021-07-17] MEDS: Docusate Sodium 100 MG CAPSULE PO ×2 (10:30→20:37)
[2021-07-17] MEDS: lamoTRIgine 100 MG TABLET PO ×2 (10:31→20:37)
[2021-07-17] MEDS: Escitalopram Oxalate 10 MG TABLET PO (10:31)
[2021-07-17] MEDS: Brexpiprazole 1 MG TABLET PO (10:31)
[2021-07-17] MEDS: Ibuprofen 400 MG TABLET PO (11:50)
[2021-07-17] MEDS: QUEtiapine Fumarate 25 MG TABLET PO (12:49)
--- NOTE | 2021-07-17 14:38 | HO.POSTANES ---
Post Anesthesia Evaluation Post Anesthesia Evaluation Vital Signs: Vital Signs Temp Pulse Resp BP Pulse Ox 07/17/21 12:46 71 139/71 07/17/21 12:45 64 157/79 H 07/17/21 09:57 97.3 F 78 16 160/82 H 96 07/17/21 09:33 65 18 155/81 H 99 07/17/21 09:18 64 18 171/92 H 97 07/17/21 09:13 65 18 162/91 H 96 07/17/21 09:08 66 18 157/92 H 96 07/17/21 09:03 97.3 F 77 16 164/96 H 97 07/17/21 06:44 98.6 F 62 17 173/87 H 99 07/17/21 06:16 61 155/74 H 07/17/21 06:00 97.4 F 61 16 155/74 H 96 Anesthesia: General Mental Status: Awake Pain Control: Satisfactory Nausea/Vomiting: None Hydration: Adequate Anesthesia-Related Issues: No Anes. Related Issues
[2021-07-17] MEDS: Latanoprost 0.005 % Ophth Sol 2.5 ML DROPS 1 DROP EYE-BOTH (20:35)
[2021-07-17] MEDS: Melatonin 3 MG TABLET 6 MG PO (20:36)
[2021-07-17] MEDS: Mirtazapine 30 MG TABLET PO (20:37)
[2021-07-17] MEDS: traZODone HCL 100 MG TABLET 300 MG PO (21:14)
--- NOTE | 2021-07-17 22:19 | P.PNPSI_ITS ---
Subjective Subjective Date of Service: 07/17/21 Reason For Visit: Depression SI Mental Status Exam Mental Status Exam Patient Appearance: Well Grooomed Patient Orientation: Person, Place, Time and Situation Level of Consciousness: Awake and Appropriate Patient Behavior: Cooperative and Anxious Mood Description: Withdrawn, Depressed, Blunted and Sad Affect Description: Constricted, Depressed, Anxious, Blunted and Nervous Patient Cognition Impaired: No Ability to Follow Directions: Good Speech Pattern: Clear Memory Description: Intact Hallucinations: None Delusions: Not Present Thought Process: Rumination and Goal Oriented Thought Content: positive for Intact, positive for Circumstantial and positive for Suicidal Ideation (thoughts go into traffic ) Depressive Symptoms: Increased Anxiety, Increased Irritability, Thoughts of /Suicide and Difficulty Concentrating Judgement: Fair Diagnostics Vital Signs (24Hr): Vital Signs - 24 hr 07/17/21 06:00 07/17/21 06:16 07/17/21 06:44 Temperature 97.4 F 98.6 F Pulse Rate 61 61 62 Respiratory Rate 16 17 Blood Pressure 155/74 H 155/74 H 173/87 H Pulse Oximetry 96 99 07/17/21 09:03 07/17/21 09:08 07/17/21 09:13 Temperature 97.3 F Pulse Rate 77 66 65 Respiratory Rate 16 18 18 Blood Pressure 164/96 H 157/92 H 162/91 H Pulse Oximetry 97 96 96 07/17/21 09:18 07/17/21 09:33 07/17/21 09:57 Temperature 97.3 F Pulse Rate 64 65 78 Respiratory Rate 18 18 16 Blood Pressure 171/92 H 155/81 H 160/82 H Pulse Oximetry 97 99 96 07/17/21 12:45 07/17/21 12:46 07/17/21 20:28 Temperature 97.6 F Pulse Rate 64 71 62 Respiratory Rate 18 Blood Pressure 157/79 H 139/71 119/68 Pulse Oximetry 98 Body Mass Index 28.8 Labs Results: 07/09/21 14:05 07/09/21 14:05 Medications Medications Current Medications Generic Name Dose Route Start Last Admin Trade Name Freq PRN Reason Stop Dose Admin Acetaminophen 650 mg 07/09/21 16:02 07/16/21 06:04 Acetaminophen 325 Mg Tablet PO 650 mg Q6H PRN Administration Headache/Pain Mild Scale (1-3) Al Hydroxide/Mg Hydroxide 30 ml 07/09/21 16:02 Magnesium Hydrox/Alum Hydrox 30 Ml Oral.Susp PO Q6H PRN Heartburn/Nausea Albuterol Sulfate 2 puff 07/09/21 17:08 07/16/21 09:53 Albuterol Sulfate 90 Mcg 8 Gm Inhaler INHALE 2 puff Q6H PRN Administration Shortness of Breath/Wheezing Amlodipine Besylate 10 mg 07/12/21 09:00 07/17/21 06:16 Amlodipine Besylate 5 Mg Tablet PO 10 mg DAILY TAZ Administration Protocol Brexpiprazole 1 mg 07/12/21 09:30 07/17/21 10:31 Brexpiprazole 1 Mg Tablet PO 1 mg DAILY TAZ Administration Docusate Sodium 100 mg 07/09/21 21:00 07/17/21 20:37 Docusate Sodium 100 Mg Capsule PO 100 mg BID TAZ Administration Escitalopram Oxalate 10 mg 07/10/21 09:00 07/17/21 10:31 Escitalopram Oxalate 10 Mg Tablet PO 10 mg DAILY TAZ Administration Finasteride 5 mg 07/10/21 09:00 07/17/21 10:30 Finasteride 5 Mg Tablet PO 5 mg DAILY TAZ Administration Gabapentin 300 mg 07/09/21 21:00 07/17/21 20:35 Gabapentin 300 Mg Capsule PO 300 mg TID TAZ Administration Hydrocortisone 1 appl 07/10/21 13:41 07/16/21 21:22 Hydrocortisone 1 % Ointment 28.35 Gm Tube TOPICAL 1 appl BID PRN Administration Perineal Discomfort Protocol Lactated Ringer's 1,000 mls @ 50 mls/hr 07/17/21 09:00 07/17/21 06:45 Lr IVCONT 50 mls/hr .Q20H TAZ Administration Lactated Ringer's 1,000 mls @ 50 mls/hr 07/17/21 09:00 07/17/21 11:57 Lr IVCONT Not Given .Q20H TAZ Ibuprofen 400 mg 07/10/21 13:25 07/17/21 11:50 Ibuprofen 400 Mg Tablet PO 400 mg Q6H PRN Administration Pain, Moderate (Pain Scale 4-6 Lamotrigine 100 mg 07/09/21 21:00 07/17/21 20:37 Lamotrigine 100 Mg Tablet PO 100 mg BID TAZ Administration Latanoprost 1 drop 07/09/21 21:00 07/17/21 20:35 Latanoprost 0.005 % Ophth No 2.5 Ml Drops EYE-BOTH 1 drop BEDTIME TAZ Administration Lisinopril 40 mg 07/10/21 09:00 07/17/21 06:16 Lisinopril 40 Mg Tablet PO 40 mg DAILY TAZ Administration Protocol Magnesium Hydroxide 30 ml 07/09/21 16:02 07/13/21 14:16 Milk Of Magnesia 30 Ml Oral.Susp PO 30 ml DAILY PRN Administration Constipation Melatonin 6 mg 07/09/21 21:00 07/17/21 20:36 Melatonin 3 Mg Tablet PO 6 mg BEDTIME TAZ Administration Mirtazapine 30 mg 07/09/21 21:00 07/17/21 20:37 Mirtazapine 30 Mg Tablet PO 30 mg BEDTIME TAZ Administration Multivitamins/Minerals 1 tab 07/10/21 09:00 07/17/21 10:30 Multivitamin With Minerals Tablet PO 1 tab DAILY TAZ Administration Ondansetron HCl 4 mg 07/17/21 08:57 Ondansetron Hcl 4 Mg/2 Ml Vial IVPUSH ONCE PRN Nausea and Vomiting Oxycodone HCl 10 mg 07/17/21 08:57 Oxycodone Hcl Immed Release 5 Mg Tablet PO ONCE PRN Pain, Severe (Pain Scale 7-10) Polyethylene Glycol 17 gm 07/09/21 17:08 07/13/21 18:45 Polyethylene Glycol 3350 17 Gm Powd.Pack PO 17 gm DAILY PRN Administration Constipation Psyllium Hydrophilic Mucilloid 3.4 gm 07/10/21 09:00 07/17/21 10:30 Psyllium Seed 3.4 Gm Powd.Pack PO 3.4 gm DAILY TAZ Administration Quetiapine Fumarate 25 mg 07/16/21 10:00 07/17/21 12:49 Quetiapine Fumarate 25 Mg Tablet PO 25 mg Q4H PRN Administration Anxiety Sodium Biphosphate/Sodium Phosphate 133 ml 07/09/21 17:08 Sodium Phosphate,[place]-Dibasic 133 Ml Enema [place] ONCE PRN Constipation Trazodone HCl 300 mg 07/13/21 21:00 07/17/21 21:14 Trazodone Hcl 100 Mg Tablet PO 300 mg BEDTIME TAZ Administration Allergies Allergies Allergy/AdvReac Type Severity Reaction Status Date / Time fentanyl [FENTANYL] Allergy Intermediate unknown Verified 05/22/21 11:43 Assessment & Plan Assessment & Plan (1) Major depressive disorder, recurrent severe without psychotic features: Status: Acute Code(s): F33.2 - Major depressive disorder, recurrent severe without psychotic features Assessment and Plan: Continue ECT Rexulti mirtazapine re-evaluate after tomorrow's ECT (2) Cognitive and neurobehavioral dysfunction following brain injury: Status: Acute Code(s): G31.89 - Other specified degenerative diseases of nervous system; F09 - Unsp ecified mental disorder due to known physiological condition; S06.9X9S - Unspecified intracranial injury with loss of consciousness of unspecified duration, sequela (3) HTN (hypertension): Status: Acute Code(s): I10 - Essential (primary) hypertension Assessment and Plan: ReStart ECT . Rex[facility]i ECT for tomorrow her amlodipine increased to 10 mg daily for hypertension monitor for self-harming behavior Continue ECT monitor response to [facility] hosp consult rash pruritis Greater than 50% of the session was spent on counseling and/or coordination of care Reason for contiued inpatient stay Substantial Risk for: harm to self and rapid decompensation
[2021-07-18] MEDS: Ibuprofen 400 MG TABLET PO ×4 (01:40→15:54)
[2021-07-18] MEDS: QUEtiapine Fumarate 25 MG TABLET PO ×2 (01:41→06:33)
[2021-07-18 07:00] VITALS: BMI 31.8
[2021-07-18 09:27] VITALS: BP 146/69; PULSE 73; RESP 18; TEMP 36.7; O2SAT 96
[2021-07-18 09:36] VITALS: BP 146/69; PULSE 73
[2021-07-18] MEDS: Gabapentin 300 MG CAPSULE PO ×2 (09:36→14:48)
[2021-07-18] MEDS: Docusate Sodium 100 MG CAPSULE PO ×2 (09:36→21:05)
[2021-07-18] MEDS: Brexpiprazole 1 MG TABLET PO (09:36)
[2021-07-18] MEDS: Finasteride 5 MG TABLET PO (09:36)
[2021-07-18] MEDS: amLODIPine Besylate 5 MG TABLET 10 MG PO (09:36)
[2021-07-18] MEDS: lamoTRIgine 100 MG TABLET PO (09:36)
[2021-07-18 09:37] VITALS: BP 146/69; PULSE 73
[2021-07-18] MEDS: lisinopriL 40 MG TABLET PO (09:37)
[2021-07-18] MEDS: Acetaminophen 325 MG TABLET 650 MG PO ×2 (09:37→15:53)
[2021-07-18] MEDS: Escitalopram Oxalate 10 MG TABLET PO (09:37)
[2021-07-18] MEDS: polyethylene glycoL 3350 17 GM POWD.PACK PO (09:38)
[2021-07-18] MEDS: Hydrocortisone 1 % Ointment 28.35 GM TUBE 1 APPL TOPICAL (14:47)
[2021-07-18] MEDS: Milk of Magnesia 30 ML ORAL.SUSP PO (14:48)
[2021-07-18 18:00] VITALS: BP 144/71; PULSE 75; RESP 18; TEMP 36.6; O2SAT 98
[2021-07-18 20:45] VITALS: BP 147/70; PULSE 66; RESP 18; TEMP 36.8; O2SAT 96
[2021-07-18] MEDS: Latanoprost 0.005 % Ophth Sol 2.5 ML DROPS 1 DROP EYE-BOTH (21:02)
[2021-07-18] MEDS: Melatonin 3 MG TABLET 6 MG PO (21:04)
[2021-07-18] MEDS: Mirtazapine 30 MG TABLET PO (21:05)
[2021-07-18] MEDS: traZODone HCL 100 MG TABLET 300 MG PO (21:05)
--- NOTE | 2021-07-18 22:40 | P.PNPSI_ITS ---
Subjective Subjective Date of Service: 07/18/21 Reason For Visit: Depression SI Subjective Notes: Conditional Voluntary Interim History: Patient had meeting with his correction team patient feeling somewhat improved understands he needs to take some responsibility for improving his quality of life. Rexulti increased to 2 mg daily patient agreeable to this no significant side effects from ECT improvement noted no cognitive changes Mental Status Exam Mental Status Exam Patient Appearance: Well Grooomed Patient Orientation: Person, Place, Time and Situation Level of Consciousness: Awake and Appropriate Patient Behavior: Cooperative and Anxious Mood Description: Withdrawn, Depressed, Blunted and Sad Affect Description: Constricted, Depressed, Anxious, Blunted and Nervous Patient Cognition Impaired: No Ability to Follow Directions: Good Speech Pattern: Clear Memory Description: Intact Hallucinations: None Delusions: Not Present Thought Process: Rumination and Goal Oriented Thought Content: positive for Intact, positive for Circumstantial and positive for Suicidal Ideation (thoughts go into traffic ) Depressive Symptoms: Increased Anxiety, Increased Irritability, Thoughts of /Suicide and Difficulty Concentrating Judgement: Fair Diagnostics Vital Signs (24Hr): Vital Signs - 24 hr 07/18/21 09:27 07/18/21 09:36 07/18/21 09:37 Temperature 98.0 F Pulse Rate 73 73 73 Respiratory Rate 18 Blood Pressure 146/69 H 146/69 H 146/69 H Pulse Oximetry 96 07/18/21 18:00 07/18/21 20:45 Temperature 97.9 F 98.3 F Pulse Rate 75 66 Respiratory Rate 18 18 Blood Pressure 144/71 H 147/70 H Pulse Oximetry 98 96 Body Mass Index 31.8 Labs Results: 07/09/21 14:05 07/09/21 14:05 Medications Medications Current Medications Generic Name Dose Route Start Last Admin Trade Name Freq PRN Reason Stop Dose Admin Acetaminophen 650 mg 07/09/21 16:02 07/18/21 15:53 Acetaminophen 325 Mg Tablet PO 650 mg Q6H PRN Administration Headache/Pain Mild Scale (1-3) Al Hydroxide/Mg Hydroxide 30 ml 07/09/21 16:02 Magnesium Hydrox/Alum Hydrox 30 Ml Oral.Susp PO Q6H PRN Heartburn/Nausea Albuterol Sulfate 2 puff 07/09/21 17:08 07/16/21 09:53 Albuterol Sulfate 90 Mcg 8 Gm Inhaler INHALE 2 puff Q6H PRN Administration Shortness of Breath/Wheezing Amlodipine Besylate 10 mg 07/12/21 09:00 07/18/21 09:36 Amlodipine Besylate 5 Mg Tablet PO 10 mg DAILY [facility] Administration Protocol Brexpiprazole 2 mg 07/19/21 09:00 Brexpiprazole 1 Mg Tablet PO DAILY [facility] Docusate Sodium 100 mg 07/09/21 21:00 07/18/21 21:05 Docusate Sodium 100 Mg Capsule PO 100 mg BID TAZ Administration Escitalopram Oxalate 10 mg 07/10/21 09:00 07/18/21 09:37 Escitalopram Oxalate 10 Mg Tablet PO 10 mg DAILY TAZ Administration Finasteride 5 mg 07/10/21 09:00 07/18/21 09:36 Finasteride 5 Mg Tablet PO 5 mg DAILY TAZ Administration Gabapentin 300 mg 07/09/21 21:00 07/18/21 19:16 Gabapentin 300 Mg Capsule PO Not Given TID [facility] Hydrocortisone 1 appl 07/10/21 13:41 07/18/21 14:47 Hydrocortisone 1 % Ointment 28.35 Gm Tube TOPICAL 1 appl BID PRN Administration Perineal Discomfort Protocol Ibuprofen 400 mg 07/10/21 13:25 07/18/21 15:54 Ibuprofen 400 Mg Tablet PO 400 mg Q6H PRN Administration Pain, Moderate (Pain Scale 4-6 Lamotrigine 100 mg 07/09/21 21:00 07/18/21 19:16 Lamotrigine 100 Mg Tablet PO Not Given BID [facility] Latanoprost 1 drop 07/09/21 21:00 07/18/21 21:02 Latanoprost 0.005 % Ophth No 2.5 Ml Drops EYE-BOTH 1 drop BEDTIME [facility] Administration Lisinopril 40 mg 07/10/21 09:00 07/18/21 09:37 Lisinopril 40 Mg Tablet PO 40 mg DAILY [facility] Administration Protocol Lorazepam 0.5 mg 07/18/21 17:41 Lorazepam 0.5 Mg Tablet PO Q6H PRN anxiety/restlessness Magnesium Hydroxide 30 ml 07/09/21 16:02 07/18/21 14:48 Milk Of Magnesia 30 Ml Oral.Susp PO 30 ml DAILY PRN Administration Constipation Melatonin 6 mg 07/09/21 21:00 07/18/21 21:04 Melatonin 3 Mg Tablet PO 6 mg BEDTIME [facility] Administration Mirtazapine 30 mg 07/09/21 21:00 07/18/21 21:05 Mirtazapine 30 Mg Tablet PO 30 mg BEDTIME TAZ Administration Multivitamins/Minerals 1 tab 07/10/21 09:00 07/18/21 09:36 Multivitamin With Minerals Tablet PO 1 tab DAILY TAZ Administration Ondansetron HCl 4 mg 07/17/21 08:57 Ondansetron Hcl 4 Mg/2 Ml Vial IVPUSH ONCE PRN Nausea and Vomiting Oxycodone HCl 10 mg 07/17/21 08:57 Oxycodone Hcl Immed Release 5 Mg Tablet PO ONCE PRN Pain, Severe (Pain Scale 7-10) Polyethylene Glycol 17 gm 07/09/21 17:08 07/18/21 09:38 Polyethylene Glycol 3350 17 Gm Powd.Pack PO 17 gm DAILY PRN Administration Constipation Psyllium Hydrophilic Mucilloid 3.4 gm 07/10/21 09:00 07/18/21 09:38 Psyllium Seed 3.4 Gm Powd.Pack PO 3.4 gm DAILY TAZ Administration Quetiapine Fumarate 25 mg 07/16/21 10:00 07/18/21 06:33 Quetiapine Fumarate 25 Mg Tablet PO 25 mg Q4H PRN Administration Anxiety Sodium Biphosphate/Sodium Phosphate 133 ml 07/09/21 17:08 Sodium Phosphate,[place]-Dibasic 133 Ml Enema [place] ONCE PRN Constipation Trazodone HCl 300 mg 07/13/21 21:00 07/18/21 21:05 Trazodone Hcl 100 Mg Tablet PO 300 mg BEDTIME TAZ Administration Allergies Allergies Allergy/AdvReac Type Severity Reaction Status Date / Time fentanyl [FENTANYL] Allergy Intermediate unknown Verified 05/22/21 11:43 Assessment & Plan Assessment & Plan (1) Major depressive disorder, recurrent severe without psychotic features: Status: Acute Code(s): F33.2 - Major depressive disorder, recurrent severe without psychotic features Assessment and Plan: Continue ECT Rexulti mirtazapine encourage coping strategies ECT in a.m. (2) Cognitive and neurobehavioral dysfunction following brain injury: Status: Acute Code(s): G31.89 - Other specified degenerative diseases of nervous system; F09 - Uns pecified mental disorder due to known physiological condition; S06.9X9S - Unspecified intracranial injury with loss of consciousness of unspecified duration, sequela (3) HTN (hypertension): Status: Acute Code(s): I10 - Essential (primary) hypertension Assessment and Plan: ReStart ECT . [facility] ECT for tomorrow her amlodipine increased to 10 mg daily for hypertension monitor for self-harming behavior Continue ECT monitor response to [facility] hosp consult rash pruritis Greater than 50% of the session was spent on counseling and/or coordination of care Reason for contiued inpatient stay Substantial Risk for: harm to self and rapid decompensation
[2021-07-19] VITALS (15 sets, daily range): BP systolic 132–185; BP diastolic 68–105; PULSE 64–75; RESP 16–22; TEMP 36.3–36.9; O2SAT 95–100; BMI 28.9
[2021-07-19] MEDS: Ibuprofen 400 MG TABLET PO ×3 (03:58→21:04)
[2021-07-19] MEDS: amLODIPine Besylate 5 MG TABLET 10 MG PO (05:30)
[2021-07-19] MEDS: lisinopriL 40 MG TABLET PO (05:31)
--- NOTE | 2021-07-19 07:06 | MHC.SHP ---
Pre-Procedural Eval Section A Date of Service: 07/19/21 The patient is an INPATIENT: Yes Changes since office visit: No Cold of Flu in the past 2 weeks, No New Medical Problems, No Changes in Medication and No Patient answered all questions The History & Physical has been completed within 30 days and I have reviewed it.: Yes Section B Chief Complaint: Depression SI Allergies: Allergies Allergy/AdvReac Type Severity Reaction Status Date / Time fentanyl [FENTANYL] Allergy Intermediate unknown Verified 05/22/21 11:43 Plan I have reviewed the history and physical and performed a pertinent physical examination on my patient. No changes have occurred unless specified.
--- NOTE | 2021-07-19 07:06 | HO.ECTPROC ---
ECT Procedure Note Diagnosis/Treatment Date of Service: 07/19/21 Diagnosis: Major Depressive Disorder Previous ECT Date: 07/17/21 Current Treatment Number: 12 Treatment: Series Interval Clinical Notes: The patient reported some dysphoria, mild improvement of depression with ECT, no side effects. ECT Settings Device: THYMATRON DGx Electrode Placement: Bifrontal Program/Pulse Width: 0.50 Energy Percent: 100 Seizure Duration By EEG (in seconds): 0 (not detected? as per EEG 64) By Motor Observation (in seconds): 52 Medications Administration General Anesthetic: Etomidate (16) Muscle Relaxant: Succinylcholine (100) Ancillary Medications Analgesics: Torodol - Pre ECT Anti-emetics: Zofran - Pre ECT Cardiovascular Medications: Labetolol Miscillaneous Medications: Propofol Airway Management Airway Management: Bag Mask Ventilation Treatment Recommendations No Changes Recommended: No change Pt Tolerated Procedure w/o Issue: Yes
--- NOTE | 2021-07-19 08:06 | HO.ANESPROP2 ---
[facility] Active Problems Active Problems: All Active Problems (Updated 05/24/21 @ 23:38 by Addy Haskins MD) Major depressive disorder, recurrent severe without psychotic features (Acute) Cognitive and neurobehavioral dysfunction following brain injury (Acute) HTN (hypertension) (Acute) Past Medical History Medical History Alcohol use disorder, severe, in sustained remission Cognitive and neurobehavioral dysfunction following brain injury Hernia HTN (hypertension) Major depressive disorder, recurrent Major depressive disorder, recurrent severe without psychotic features Functional capacity: independent ambulation Family History Family history of problems with anesthesia: No Surgical History Surgical History H/O brain surgery History of hip replacement S/P cholecystectomy History of Problems with Anesthesia: No Social History Social History Household Members: Caregiver and Other Household Members Other:: Pt lives in a nursing home Housing: Other Housing Other:: Custodial Do you presently have visiting nurse or other home services: No Patient Tobacco Use Status: Never used Tobacco Use of substances other than those prescribed or required for medical reasons: No Are you DNR?: No Advance Directives: Yes Advance Directives on File: Yes Advance Directives Date on File: 05/27/19 Recently lost weight without trying: Yes How much weight loss: 2-13 pounds Nutrition Risks: No Nutritional Risk service: No Sexual orientation: Straight/Heterosexual Meds Allergies Allergy/AdvReac Type Severity Reaction Status Date / Time fentanyl [FENTANYL] Allergy Intermediate unknown Verified 05/22/21 11:43 Active Medications: Current Medications Generic Name Dose Route Start Last Admin Trade Name Freq PRN Reason Stop Dose Admin Acetaminophen 650 mg 07/09/21 16:02 07/18/21 15:53 Acetaminophen 325 Mg Tablet PO 650 mg Q6H PRN Administration Headache/Pain Mild Scale (1-3) Al Hydroxide/Mg Hydroxide 30 ml 07/09/21 16:02 Magnesium Hydrox/Alum Hydrox 30 Ml Oral.Susp PO Q6H PRN Heartburn/Nausea Albuterol Sulfate 2 puff 07/09/21 17:08 07/16/21 09:53 Albuterol Sulfate 90 Mcg 8 Gm Inhaler INHALE 2 puff Q6H PRN Administration Shortness of Breath/Wheezing Amlodipine Besylate 10 mg 07/12/21 09:00 07/19/21 05:30 Amlodipine Besylate 5 Mg Tablet PO 10 mg DAILY TAZ Administration Protocol Brexpiprazole 2 mg 07/19/21 09:00 Brexpiprazole 1 Mg Tablet PO DAILY [facility] Docusate Sodium 100 mg 07/09/21 21:00 07/18/21 21:05 Docusate Sodium 100 Mg Capsule PO 100 mg BID TAZ Administration Escitalopram Oxalate 10 mg 07/10/21 09:00 07/18/21 09:37 Escitalopram Oxalate 10 Mg Tablet PO 10 mg DAILY TAZ Administration Finasteride 5 mg 07/10/21 09:00 07/18/21 09:36 Finasteride 5 Mg Tablet PO 5 mg DAILY TAZ Administration Gabapentin 300 mg 07/09/21 21:00 07/18/21 19:16 Gabapentin 300 Mg Capsule PO Not Given TID [facility] Hydrocortisone 1 appl 07/10/21 13:41 07/18/21 14:47 Hydrocortisone 1 % Ointment 28.35 Gm Tube TOPICAL 1 appl BID PRN Administration Perineal Discomfort Protocol Ibuprofen 400 mg 07/10/21 13:25 07/19/21 03:58 Ibuprofen 400 Mg Tablet PO 400 mg Q6H PRN Administration Pain, Moderate (Pain Scale 4-6 Lamotrigine 100 mg 07/09/21 21:00 07/18/21 19:16 Lamotrigine 100 Mg Tablet PO Not Given BID [facility] Latanoprost 1 drop 07/09/21 21:00 07/18/21 21:02 Latanoprost 0.005 % Ophth No 2.5 Ml Drops EYE-BOTH 1 drop BEDTIME TAZ Administration Lisinopril 40 mg 07/10/21 09:00 07/19/21 05:31 Lisinopril 40 Mg Tablet PO 40 mg DAILY TAZ Administration Protocol Lorazepam 0.5 mg 07/18/21 17:41 Lorazepam 0.5 Mg Tablet PO Q6H PRN anxiety/restlessness Magnesium Hydroxide 30 ml 07/09/21 16:02 07/18/21 14:48 Milk Of Magnesia 30 Ml Oral.Susp PO 30 ml DAILY PRN Administration Constipation Melatonin 6 mg 07/09/21 21:00 07/18/21 21:04 Melatonin 3 Mg Tablet PO 6 mg BEDTIME TAZ Administration Mirtazapine 30 mg 07/09/21 21:00 07/18/21 21:05 Mirtazapine 30 Mg Tablet PO 30 mg BEDTIME TAZ Administration Multivitamins/Minerals 1 tab 07/10/21 09:00 07/18/21 09:36 Multivitamin With Minerals Tablet PO 1 tab DAILY TAZ Administration Ondansetron HCl 4 mg 07/17/21 08:57 Ondansetron Hcl 4 Mg/2 Ml Vial IVPUSH ONCE PRN Nausea and Vomiting Oxycodone HCl 10 mg 07/17/21 08:57 Oxycodone Hcl Immed Release 5 Mg Tablet PO ONCE PRN Pain, Severe (Pain Scale 7-10) Polyethylene Glycol 17 gm 07/09/21 17:08 07/18/21 09:38 Polyethylene Glycol 3350 17 Gm Powd.Pack PO 17 gm DAILY PRN Administration Constipation Psyllium Hydrophilic Mucilloid 3.4 gm 07/10/21 09:00 07/18/21 09:38 Psyllium Seed 3.4 Gm Powd.Pack PO 3.4 gm DAILY TAZ Administration Quetiapine Fumarate 25 mg 07/16/21 10:00 07/18/21 06:33 Quetiapine Fumarate 25 Mg Tablet PO 25 mg Q4H PRN Administration Anxiety Sodium Biphosphate/Sodium Phosphate 133 ml 07/09/21 17:08 Sodium Phosphate,[place]-Dibasic 133 Ml Enema ND ONCE PRN Constipation Trazodone HCl 300 mg 07/13/21 21:00 07/18/21 21:05 Trazodone Hcl 100 Mg Tablet PO 300 mg BEDTIME TAZ Administration Home Medications Medication Instructions Recorded Confirmed Last Taken Type Tylenol 650 mg PO Q6-8H PRN 05/22/21 05/22/21 Unknown History albuterol 90 mcg/actuation aerosol See Rx Instructions .ROUTE .COMPLEX 05/22/21 05/22/21 Unknown History inhaler clotrimazole 1 % topical solution See Rx Instructions .ROUTE 05/22/21 05/22/21 Unknown History .COMPLEX PRN dextromethorphan-guaifenesin 10 10 ml PO Q6-8H PRN 05/22/21 05/22/21 Unknown History mg-200 mg/5 mL oral liquid docusate sodium 100 mg capsule 1 cap PO BID 05/22/21 05/22/21 Unknown History docusate sodium 100 mg capsule See Rx Instructions .ROUTE 05/22/21 05/22/21 Unknown History .COMPLEX PRN finasteride 5 mg tablet 1 tab PO DAILY 05/22/21 05/22/21 Unknown History glycerin 1 drp OPHTHALMIC (EYE) Q1-2H PRN 05/22/21 05/22/21 Unknown History latanoprost 0.005 % eye drops 1 drp OPHTHALMIC (EYE) DAILY 05/22/21 05/22/21 Unknown History magnesium hydroxide 400 mg/5 mL 2,400 mg PO PRN 05/22/21 Unknown History oral suspension (Milk of Magnesia) melatonin 5 mg tablet 5 mg PO BEDTIME 05/22/21 05/22/21 Unknown History qprjqstkfvcw-pdbtdzwu-hmqamw tablet 1 tab PO DAILY 05/22/21 05/22/21 Unknown History polyethylene glycol 3350 17 17 g PO DAILY 05/22/21 05/22/21 Unknown History gram/dose oral powder polyethylene glycol 3350 17 17 g PO DAILY PRN 05/22/21 05/22/21 Unknown History gram/dose oral powder psyllium husk 0.4 gram capsule 0.4 g PO DAILY 05/22/21 05/22/21 Unknown History (Metamucil) sodium phosphates 19 gram-7 118 ml ND DAILY PRN 05/22/21 05/22/21 Unknown History gram/118 mL enema (Fleet Enema) trazodone 150 mg tablet 2 tab PO BEDTIME 05/22/21 05/22/21 Unknown History Exam Exam Date and Time: July 19, 2021 0806 Height,Weight and Vital Signs: Height 6 ft 2 in Weight 112.6 kg Last Vital Signs Temp 97.7 F 07/19/21 07:56 Pulse 71 07/19/21 08:01 Resp 16 07/19/21 08:01 BP 167/91 H 07/19/21 08:01 Pulse Ox 97 07/19/21 08:01 Pertinent Lab Results Pertinent Lab Results: Laboratory Tests 07/09/21 07/09/21 07/09/21 14:02 14:05 14:05 WBC 6.3 RBC 4.32 L Hgb 14.3 Hct 42.7 MCV 98.8 H MCH 33.1 H MCHC 33.5 RDW 11.8 Plt Count 195 MPV 10.2 Immature Gran % (Auto) 0.8 H Neut % (Auto) 58.9 Lymph % (Auto) 28.6 [place] % (Auto) 7.8 Eos % (Auto) 3.6 Baso % (Auto) 0.3 Lymph # (Auto) 1.8 [place] # (Auto) 0.5 Eos # (Auto) 0.2 Baso # (Auto) 0.0 Abs Immat Gran (auto) 0.05 H Absolute Neuts (auto) 3.7 Absolute Nucleated RBC 0.000 Nucleated RBC % (auto) 0.0 Sodium 141 Potassium 4.2 Chloride 107 Carbon Dioxide 24 Anion Gap 14 BUN 19 H Creatinine 0.85 Estim Creat Clear Calc Not Reportable Estimated GFR > 60 Random Glucose 73 Calcium 9.7 Total Bilirubin 0.7 AST 29 ALT 46 H Alkaline Phosphatase 68 D Total Protein 7.2 Albumin 4.7 COVID-19 ([facility]) Negative COVID-19 Clin Com See Note Airway Mallampati Class: III TM Dist: >3cm Neck ROM: Full Assessment and Plan Final Anesthetic Review Family History of Problems with Anesthesia: No History of Problems with Anesthesia: No
--- NOTE | 2021-07-19 09:36 | PC.NURSE ---
Skin/Wound assessment completed today. Patient has scratches and blisters on bilateral legs, Stage 2 Pressure ulcer to coccyx-Triad applied measures 1.5 x 0.5 x 0.3. Healing rash to left arm. No other skin issues noted at this time.
[2021-07-19] MEDS: polyethylene glycoL 3350 17 GM POWD.PACK PO (10:06)
[2021-07-19] MEDS: Escitalopram Oxalate 10 MG TABLET PO (10:10)
[2021-07-19] MEDS: Brexpiprazole 1 MG TABLET 2 MG PO (10:10)
[2021-07-19] MEDS: Gabapentin 300 MG CAPSULE PO ×3 (10:11→21:03)
[2021-07-19] MEDS: Docusate Sodium 100 MG CAPSULE PO ×2 (10:12→21:04)
[2021-07-19] MEDS: LORazepam 0.5 MG TABLET PO ×2 (10:12→21:04)
[2021-07-19] MEDS: Hydrocortisone 1 % Ointment 28.35 GM TUBE 1 APPL TOPICAL (10:12)
[2021-07-19] MEDS: Finasteride 5 MG TABLET PO (10:12)
[2021-07-19] MEDS: lamoTRIgine 100 MG TABLET PO ×2 (10:12→21:04)
[2021-07-19] MEDS: QUEtiapine Fumarate 25 MG TABLET PO (14:17)
--- NOTE | 2021-07-19 14:43 | P.PNPSI_ITS ---
Subjective Subjective Date of Service: 07/19/21 Reason For Visit: Depression SI Subjective Notes: Conditional Voluntary Interim History: The delinquency prevention social worker reported that they had a meeting with the staff of the [facility] and it went well The staff report that he looks less depressed, he is responding to ECT. We were planning for possible discharge on Thursday Medication Compliance: Yes Side effects from medications: No Attending Groups: Intermittent Review of Systems Acute medical concerns: No Medical Review of Systems: unchanged Mental Status Exam Mental Status Exam Patient Appearance: Well Grooomed Patient Orientation: Person, Place, Time and Situation Level of Consciousness: Awake Patient Behavior: Appropriate Mood Description: Depressed Affect Description: Constricted Patient Cognition Impaired: No Ability to Follow Directions: Good Speech Pattern: Clear Hallucinations: None Delusions: Not Present Thought Process: Goal Oriented Thought Content: positive for Circumstantial Judgement: Fair Diagnostics Vital Signs (24Hr): Vital Signs - 24 hr 07/18/21 18:00 07/18/21 20:45 07/19/21 05:30 Temperature 97.9 F 98.3 F Pulse Rate 75 66 66 Respiratory Rate 18 18 Blood Pressure 144/71 H 147/70 H 132/78 Pulse Oximetry 98 96 07/19/21 05:31 07/19/21 06:00 07/19/21 06:07 Temperature 98.5 F 98.5 F Pulse Rate 66 66 66 Respiratory Rate 18 18 Blood Pressure 132/78 159/81 H 159/81 H Pulse Oximetry 98 98 07/19/21 06:26 07/19/21 06:33 07/19/21 07:56 Temperature 97.7 F 97.7 F 97.7 F Pulse Rate 64 64 75 Respiratory Rate 20 20 22 H Blood Pressure 185/88 H 185/85 H 169/73 H Pulse Oximetry 100 100 96 07/19/21 08:01 07/19/21 08:06 07/19/21 08:10 Temperature Pulse Rate 71 72 Respiratory Rate 16 16 Blood Pressure 167/91 H 147/91 H Pulse Oximetry 97 95 96 07/19/21 08:11 07/19/21 08:26 07/19/21 09:05 Temperature 98.2 F 97.4 F Pulse Rate 68 65 66 Respiratory Rate 18 18 18 Blood Pressure 156/80 H 146/105 H 151/83 H Pulse Oximetry 95 96 95 07/19/21 10:00 Temperature 97.4 F Pulse Rate 66 Respiratory Rate 16 Blood Pressure 151/83 H Pulse Oximetry 95 Body Mass Index 31.8 Labs Results: 07/09/21 14:05 07/09/21 14:05 Medications Medications Current Medications Generic Name Dose Route Start Last Admin Trade Name Freq PRN Reason Stop Dose Admin Acetaminophen 650 mg 07/09/21 16:02 07/18/21 15:53 Acetaminophen 325 Mg Tablet PO 650 mg Q6H PRN Administration Headache/Pain Mild Scale (1-3) Al Hydroxide/Mg Hydroxide 30 ml 07/09/21 16:02 Magnesium Hydrox/Alum Hydrox 30 Ml Oral.Susp PO Q6H PRN Heartburn/Nausea Albuterol Sulfate 2 puff 07/09/21 17:08 07/16/21 09:53 Albuterol Sulfate 90 Mcg 8 Gm Inhaler INHALE 2 puff Q6H PRN Administration Shortness of Breath/Wheezing Amlodipine Besylate 10 mg 07/12/21 09:00 07/19/21 05:30 Amlodipine Besylate 5 Mg Tablet PO 10 mg DAILY TAZ Administration Protocol Brexpiprazole 2 mg 07/19/21 09:00 07/19/21 10:10 Brexpiprazole 1 Mg Tablet PO 2 mg DAILY TAZ Administration Dibucaine 1 appl 07/19/21 13:28 Dibucaine 1 % Oint 28 Gm Tube TOPICAL QID PRN Hemorrhoids Protocol Docusate Sodium 100 mg 07/09/21 21:00 07/19/21 10:12 Docusate Sodium 100 Mg Capsule PO 100 mg BID TAZ Administration Escitalopram Oxalate 10 mg 07/10/21 09:00 07/19/21 10:10 Escitalopram Oxalate 10 Mg Tablet PO 10 mg DAILY TAZ Administration Finasteride 5 mg 07/10/21 09:00 07/19/21 10:12 Finasteride 5 Mg Tablet PO 5 mg DAILY TAZ Administration Gabapentin 300 mg 07/09/21 21:00 07/19/21 14:17 Gabapentin 300 Mg Capsule PO 300 mg TID TAZ Administration Hydrocortisone 1 appl 07/19/21 14:30 Hydrocortisone 2.5 % Rectal Cr 30 Gm Tube [place] BID TAZ Lactated Ringer's 1,000 mls @ 100 mls/hr 07/19/21 08:15 07/19/21 14:20 Lr IVCONT Not Given .Q10H TAZ Ibuprofen 400 mg 07/10/21 13:25 07/19/21 10:11 Ibuprofen 400 Mg Tablet PO 400 mg Q6H PRN Administration Pain, Moderate (Pain Scale 4-6 Lamotrigine 100 mg 07/09/21 21:00 07/19/21 10:12 Lamotrigine 100 Mg Tablet PO 100 mg BID TAZ Administration Latanoprost 1 drop 07/09/21 21:00 07/18/21 21:02 Latanoprost 0.005 % Ophth No 2.5 Ml Drops EYE-BOTH 1 drop BEDTIME TAZ Administration Lisinopril 40 mg 07/10/21 09:00 07/19/21 05:31 Lisinopril 40 Mg Tablet PO 40 mg DAILY TAZ Administration Protocol Lorazepam 0.5 mg 07/18/21 17:41 07/19/21 10:12 Lorazepam 0.5 Mg Tablet PO 0.5 mg Q6H PRN Administration anxiety/restlessness Magnesium Hydroxide 30 ml 07/09/21 16:02 07/18/21 14:48 Milk Of Magnesia 30 Ml Oral.Susp PO 30 ml DAILY PRN Administration Constipation Melatonin 6 mg 07/09/21 21:00 07/18/21 21:04 Melatonin 3 Mg Tablet PO 6 mg BEDTIME TAZ Administration Mirtazapine 30 mg 07/09/21 21:00 07/18/21 21:05 Mirtazapine 30 Mg Tablet PO 30 mg BEDTIME TAZ Administration Multivitamins/Minerals 1 tab 07/10/21 09:00 07/19/21 10:11 Multivitamin With Minerals Tablet PO 1 tab DAILY TAZ Administration Ondansetron HCl 4 mg 07/17/21 08:57 Ondansetron Hcl 4 Mg/2 Ml Vial IVPUSH ONCE PRN Nausea and Vomiting Oxycodone HCl 10 mg 07/17/21 08:57 Oxycodone Hcl Immed Release 5 Mg Tablet PO ONCE PRN Pain, Severe (Pain Scale 7-10) Polyethylene Glycol 17 gm 07/09/21 17:08 07/19/21 10:06 Polyethylene Glycol 3350 17 Gm Powd.Pack PO 17 gm DAILY PRN Administration Constipation Psyllium Hydrophilic Mucilloid 3.4 gm 07/10/21 09:00 07/19/21 10:06 Psyllium Seed 3.4 Gm Powd.Pack PO 3.4 gm DAILY TAZ Administration Quetiapine Fumarate 25 mg 07/16/21 10:00 07/19/21 14:17 Quetiapine Fumarate 25 Mg Tablet PO 25 mg Q4H PRN Administration Anxiety Sodium Biphosphate/Sodium Phosphate 133 ml 07/09/21 17:08 Sodium Phosphate,[place]-Dibasic 133 Ml Enema [place] ONCE PRN Constipation Trazodone HCl 300 mg 07/13/21 21:00 07/18/21 21:05 Trazodone Hcl 100 Mg Tablet PO 300 mg BEDTIME TAZ Administration Allergies Allergies Allergy/AdvReac Type Severity Reaction Status Date / Time fentanyl [FENTANYL] Allergy Intermediate unknown Verified 05/22/21 11:43 Assessment & Plan Assessment & Plan (1) Major depressive disorder, recurrent severe without psychotic features: Status: Acute Code(s): F33.2 - Major depressive disorder, recurrent severe without psychotic features Assessment and Plan: Continue ECT [facility] mirtazapine encourage coping strategies ECT in a.m. (2) Cognitive and neurobehavioral dysfunction following brain injury: Status: Acute Code(s): G31.89 - Other specified degenerative diseases of nervous system; F09 - Unspecified mental disorder due to known physiological condition; S06.9X9S - Unspecified intracranial injury with loss of consciousness of unspecified duration, sequela (3) HTN (hypertension): Status: Acute Code(s): I10 - Essential (primary) hypertension Assessment and Plan: ReStart ECT . [facility] ECT for tomorrow her amlodipine increased to 10 mg daily for hypertension monitor for self-harming behavior Continue ECT monitor response to [facility] hosp consult rash pruritis Greater than 50% of the session was spent on counseling and/or coordination of care Reason for contiued inpatient stay Substantial Risk for: harm to self, inability to function, rapid decompensation and med/psych decompensation
[2021-07-19] MEDS: Hydrocortisone 2.5 % Rectal Cr 30 GM TUBE 1 APPL PR ×2 (15:03→20:23)
[2021-07-19] MEDS: Latanoprost 0.005 % Ophth Sol 2.5 ML DROPS 1 DROP EYE-BOTH (20:23)
[2021-07-19] MEDS: Melatonin 3 MG TABLET 6 MG PO (21:03)
[2021-07-19] MEDS: traZODone HCL 100 MG TABLET 300 MG PO (21:03)
[2021-07-19] MEDS: Mirtazapine 30 MG TABLET PO (21:03)
[2021-07-20] MEDS: Acetaminophen 325 MG TABLET 650 MG PO ×2 (01:45→09:12)
[2021-07-20] MEDS: QUEtiapine Fumarate 25 MG TABLET PO (01:45)
[2021-07-20 06:00] VITALS: BP 167/77; PULSE 72; TEMP 36.6; O2SAT 98
[2021-07-20] MEDS: Ibuprofen 400 MG TABLET PO (06:08)
[2021-07-20] MEDS: LORazepam 0.5 MG TABLET PO ×2 (06:08→21:17)
[2021-07-20 09:11] VITALS: BP 167/77; PULSE 72
[2021-07-20] MEDS: lisinopriL 40 MG TABLET PO (09:11)
[2021-07-20] MEDS: lamoTRIgine 100 MG TABLET PO ×2 (09:11→21:11)
[2021-07-20] MEDS: Brexpiprazole 1 MG TABLET 2 MG PO (09:11)
[2021-07-20] MEDS: Gabapentin 300 MG CAPSULE PO ×3 (09:11→21:11)
[2021-07-20] MEDS: Escitalopram Oxalate 10 MG TABLET PO (09:11)
[2021-07-20] MEDS: Docusate Sodium 100 MG CAPSULE PO ×2 (09:11→21:10)
[2021-07-20 09:12] VITALS: BP 167/77; PULSE 72
[2021-07-20] MEDS: Finasteride 5 MG TABLET PO (09:12)
[2021-07-20] MEDS: amLODIPine Besylate 5 MG TABLET 10 MG PO (09:12)
--- NOTE | 2021-07-20 11:55 | HO.PSYCHPN ---
Subjective Subjective Date of Service: 07/21/21 Reason For Visit: Depression SI Subjective Notes: Conditional Voluntary Interim History: Pt pleasant on approach. Pt reports some minimal improvement with ECT in terms of depressed mood. However, he denies SI/HI. He is hopeful that additional ECT treatment will be beneficial for his mood. He reports eating and sleeping well. He does report increase confusion with last ECT on Thursday- Per nursing, no behavioral concerns. He is mostly in his bed, encouraged to attend groups. Medication Compliance: Yes Side effects from medications: No Review of Systems Review of Systems back pain groin rash Yes all other systems are reviewed and are negative Constitutional: Reports as per HPI, Denies chills and Denies fever(s) Cardiovascular: Denies chest pain Respiratory: Denies cough Gastrointestinal: Denies abdominal pain Mental Status Exam Mental Status Exam Narrative: Appearance: casually groomed, fair hygiene in NAD Behavior:cooperative psychomotor: no agitation or retardation noted Speech:clear, normal rate/rhythm, spontaneous Thought process:linear Thought content:no signs of psychosis, future oriented in that has hope that tx will help mood Mood: depressed Affect: does brightens at times SI:denies HI:none VH/AH:none Delusions:none Insight/judgment:fair x 2. Memory/cog: alert, oriented x 3. not formally tested. Diagnostics Vital Signs (24Hr): Vital Signs - 24 hr 07/20/21 21:09 07/21/21 06:00 07/21/21 09:28 Temperature 97.9 F 97.0 F Pulse Rate 85 75 75 Respiratory Rate 18 16 Blood Pressure 167/79 H 143/79 H 143/79 H Pulse Oximetry 97 97 07/21/21 09:29 Temperature Pulse Rate 75 Respiratory Rate Blood Pressure 143/79 H Pulse Oximetry Body Mass Index 28.9 Labs Results: 07/09/21 14:05 07/09/21 14:05 Medications Medications Current Medications Generic Name Dose Route Start Last Admin Trade Name Freq PRN Reason Stop Dose Admin Acetaminophen 650 mg 07/09/21 16:02 07/20/21 09:12 Acetaminophen 325 Mg Tablet PO 650 mg Q6H PRN Administration Headache/Pain Mild Scale (1-3) Al Hydroxide/Mg Hydroxide 30 ml 07/09/21 16:02 Magnesium Hydrox/Alum Hydrox 30 Ml Oral.Susp PO Q6H PRN Heartburn/Nausea Albuterol Sulfate 2 puff 07/09/21 17:08 07/21/21 10:07 Albuterol Sulfate 90 Mcg 8 Gm Inhaler INHALE 2 puff Q6H PRN Administration Shortness of Breath/Wheezing Amlodipine Besylate 10 mg 07/12/21 09:00 07/21/21 09:28 Amlodipine Besylate 5 Mg Tablet PO 10 mg DAILY TAZ Administration Protocol Brexpiprazole 2 mg 07/19/21 09:00 07/21/21 09:24 Brexpiprazole 1 Mg Tablet PO 2 mg DAILY TAZ Administration Dibucaine 1 appl 07/19/21 13:28 07/21/21 10:06 Dibucaine 1 % Oint 28 Gm Tube TOPICAL 1 appl QID PRN Administration Hemorrhoids Protocol Docusate Sodium 100 mg 07/09/21 21:00 07/21/21 09:29 Docusate Sodium 100 Mg Capsule PO 100 mg BID TAZ Administration Escitalopram Oxalate 10 mg 07/10/21 09:00 07/21/21 09:30 Escitalopram Oxalate 10 Mg Tablet PO 10 mg DAILY TAZ Administration Finasteride 5 mg 07/10/21 09:00 07/21/21 09:30 Finasteride 5 Mg Tablet PO 5 mg DAILY TAZ Administration Gabapentin 300 mg 07/09/21 21:00 07/21/21 09:29 Gabapentin 300 Mg Capsule PO 300 mg TID TAZ Administration Hydrocortisone 1 appl 07/19/21 14:30 07/21/21 10:14 Hydrocortisone 2.5 % Rectal Cr 30 Gm Tube MD 1 appl BID TAZ Administration Ibuprofen 400 mg 07/10/21 13:25 07/21/21 04:40 Ibuprofen 400 Mg Tablet PO 400 mg Q6H PRN Administration Pain, Moderate (Pain Scale 4-6 Lamotrigine 100 mg 07/09/21 21:00 07/21/21 09:30 Lamotrigine 100 Mg Tablet PO 100 mg BID TAZ Administration Latanoprost 1 drop 07/09/21 21:00 07/20/21 21:12 Latanoprost 0.005 % Ophth No 2.5 Ml Drops EYE-BOTH 1 drop BEDTIME TAZ Administration Lisinopril 40 mg 07/10/21 09:00 07/21/21 09:29 Lisinopril 40 Mg Tablet PO 40 mg DAILY TAZ Administration Protocol Lorazepam 0.5 mg 07/18/21 17:41 07/21/21 04:40 Lorazepam 0.5 Mg Tablet PO 0.5 mg Q6H PRN Administration anxiety/restlessness Magnesium Hydroxide 30 ml 07/09/21 16:02 07/18/21 14:48 Milk Of Magnesia 30 Ml Oral.Susp PO 30 ml DAILY PRN Administration Constipation Melatonin 6 mg 07/09/21 21:00 07/20/21 21:10 Melatonin 3 Mg Tablet PO 6 mg BEDTIME TAZ Administration Mirtazapine 30 mg 07/09/21 21:00 07/20/21 21:11 Mirtazapine 30 Mg Tablet PO 30 mg BEDTIME TAZ Administration Multivitamins/Minerals 1 tab 07/10/21 09:00 07/21/21 09:28 Multivitamin With Minerals Tablet PO 1 tab DAILY TAZ Administration Ondansetron HCl 4 mg 07/17/21 08:57 Ondansetron Hcl 4 Mg/2 Ml Vial IVPUSH ONCE PRN Nausea and Vomiting Oxycodone HCl 10 mg 07/17/21 08:57 Oxycodone Hcl Immed Release 5 Mg Tablet PO ONCE PRN Pain, Severe (Pain Scale 7-10) Polyethylene Glycol 17 gm 07/09/21 17:08 07/20/21 18:23 Polyethylene Glycol 3350 17 Gm Powd.Pack PO 17 gm DAILY PRN Administration Constipation Psyllium Hydrophilic Mucilloid 3.4 gm 07/10/21 09:00 07/21/21 09:31 Psyllium Seed 3.4 Gm Powd.Pack PO 3.4 gm DAILY TAZ Administration Quetiapine Fumarate 25 mg 07/16/21 10:00 07/20/21 01:45 Quetiapine Fumarate 25 Mg Tablet PO 25 mg Q4H PRN Administration Anxiety Sodium Biphosphate/Sodium Phosphate 133 ml 07/09/21 17:08 Sodium Phosphate,[place]-Dibasic 133 Ml Enema MD ONCE PRN Constipation Trazodone HCl 300 mg 07/13/21 21:00 07/20/21 21:12 Trazodone Hcl 100 Mg Tablet PO 300 mg BEDTIME TAZ Administration Allergies Allergies Allergy/AdvReac Type Severity Reaction Status Date / Time fentanyl [FENTANYL] Allergy Intermediate unknown Verified 05/22/21 11:43 Assessment & Plan Assessment & Plan (1) Major depressive disorder, recurrent severe without psychotic features: Status: Acute Code(s): F33.2 - Major depressive disorder, recurrent severe without psychotic features Assessment and Plan: Continue ECT [facility] mirtazapine encourage coping strategies ECT in a.m. (2) Cognitive and neurobehavioral dysfunction following brain injury: Status: Acute Code(s): G31.89 - Other specified degenerative diseases of nervous system; F09 - Unspecified mental disorder due to known physiological condition; S06.9X9S - Unspecified intracranial injury with loss of consciousness of unspecified duration, sequela (3) HTN (hypertension): Status: Acute Code(s): I10 - Essential (primary) hypertension Assessment and Plan: ReStart ECT . [facility] ECT for tomorrow her amlodipine increased to 10 mg daily for hypertension monitor for self-harming behavior Continue ECT monitor response to [facility] hosp consult rash pruritis Greater than 50% of the session was spent on counseling and/or coordination of care Reason for contiued inpatient stay Substantial Risk for: inability to function
[2021-07-20] MEDS: polyethylene glycoL 3350 17 GM POWD.PACK PO (18:23)
[2021-07-20 21:09] VITALS: BP 167/79; PULSE 85; RESP 18; TEMP 36.6; O2SAT 97
[2021-07-20] MEDS: Melatonin 3 MG TABLET 6 MG PO (21:10)
[2021-07-20] MEDS: Mirtazapine 30 MG TABLET PO (21:11)
[2021-07-20] MEDS: Latanoprost 0.005 % Ophth Sol 2.5 ML DROPS 1 DROP EYE-BOTH (21:12)
[2021-07-20] MEDS: traZODone HCL 100 MG TABLET 300 MG PO (21:12)
[2021-07-20] MEDS: Hydrocortisone 2.5 % Rectal Cr 30 GM TUBE 1 APPL PR (21:13)
[2021-07-21] MEDS: LORazepam 0.5 MG TABLET PO (04:40)
[2021-07-21] MEDS: Ibuprofen 400 MG TABLET PO ×2 (04:40→21:57)
[2021-07-21 06:00] VITALS: BP 143/79; PULSE 75; RESP 16; TEMP 36.1; O2SAT 97
[2021-07-21] MEDS: Brexpiprazole 1 MG TABLET 2 MG PO (09:24)
[2021-07-21 09:28] VITALS: BP 143/79; PULSE 75
[2021-07-21] MEDS: amLODIPine Besylate 5 MG TABLET 10 MG PO (09:28)
[2021-07-21 09:29] VITALS: BP 143/79; PULSE 75
[2021-07-21] MEDS: lisinopriL 40 MG TABLET PO (09:29)
[2021-07-21] MEDS: Gabapentin 300 MG CAPSULE PO ×3 (09:29→21:25)
[2021-07-21] MEDS: Docusate Sodium 100 MG CAPSULE PO ×2 (09:29→21:26)
[2021-07-21] MEDS: Finasteride 5 MG TABLET PO (09:30)
[2021-07-21] MEDS: Escitalopram Oxalate 10 MG TABLET PO (09:30)
[2021-07-21] MEDS: lamoTRIgine 100 MG TABLET PO ×2 (09:30→21:26)
[2021-07-21] MEDS: Albuterol Sulfate 90 MCG 8 GM INHALER 2 PUFF INHALE (10:07)
[2021-07-21] MEDS: Hydrocortisone 2.5 % Rectal Cr 30 GM TUBE 1 APPL PR (10:14)
--- NOTE | 2021-07-21 10:59 | HO.POSTANES ---
Post Anesthesia Evaluation Post Anesthesia Evaluation Vital Signs: Vital Signs Temp Pulse Resp BP Pulse Ox 07/21/21 09:29 75 143/79 H 07/21/21 09:28 75 143/79 H 07/21/21 06:00 97.0 F 75 16 143/79 H 97 Anesthesia: General Mental Status: Awake Pain Control: Satisfactory Nausea/Vomiting: None Hydration: Adequate Anesthesia-Related Issues: No Anes. Related Issues
[2021-07-21] MEDS: polyethylene glycoL 3350 17 GM POWD.PACK PO (16:43)
[2021-07-21 18:00] VITALS: BP 186/91; PULSE 74; RESP 16; TEMP 36.8; O2SAT 97
[2021-07-21 21:20] VITALS: TEMP 36.4
[2021-07-21] MEDS: Melatonin 3 MG TABLET 6 MG PO (21:26)
[2021-07-21] MEDS: traZODone HCL 100 MG TABLET 300 MG PO (21:26)
[2021-07-21] MEDS: Mirtazapine 30 MG TABLET PO (21:26)
[2021-07-21] MEDS: Latanoprost 0.005 % Ophth Sol 2.5 ML DROPS 1 DROP EYE-BOTH (21:27)
[2021-07-22] MEDS: LORazepam 0.5 MG TABLET PO ×2 (01:27→22:20)
[2021-07-22] MEDS: Ibuprofen 400 MG TABLET PO (05:37)
[2021-07-22] MEDS: QUEtiapine Fumarate 25 MG TABLET PO (05:38)
[2021-07-22 06:00] VITALS: BP 121/77; PULSE 73; TEMP 36.1; O2SAT 96
--- NOTE | 2021-07-22 08:31 | HO.PSYCHPN ---
Subjective Subjective Date of Service: 07/23/21 Reason For Visit: Depression SI Interim History: Pt pleasant on approach. Pt reports some minimal improvement with ECT in terms of depressed mood. However, he denies SI/HI. He is hopeful that additional ECT treatment will be beneficial for his mood. He reports eating and sleeping well. He does report increase confusion with last ECT on Thursday- Per nursing, no behavioral concerns. He is mostly in his bed, encouraged to attend groups. Review of Systems Review of Systems back pain groin rash Yes all other systems are reviewed and are negative Constitutional: Reports as per HPI, Denies chills and Denies fever(s) Cardiovascular: Denies chest pain Respiratory: Denies cough Gastrointestinal: Denies abdominal pain Mental Status Exam Mental Status Exam Narrative: Appearance: casually groomed, fair hygiene in NAD Behavior:cooperative psychomotor: no agitation or retardation noted Speech:clear, normal rate/rhythm, spontaneous Thought process:linear Thought content:no signs of psychosis, future oriented in that has hope that tx will help mood Mood: depressed Affect: does brightens at times SI:denies HI:none VH/AH:none Delusions:none Insight/judgment:fair x 2. Memory/cog: alert, oriented x 3. not formally tested. Diagnostics Vital Signs (24Hr): Vital Signs - 24 hr 07/22/21 08:44 07/22/21 08:45 Pulse Rate 73 73 Blood Pressure 121/77 121/77 Body Mass Index 28.9 Labs Results: 07/09/21 14:05 07/09/21 14:05 Medications Medications Current Medications Generic Name Dose Route Start Last Admin Trade Name Cam[place]q PRN Reason Stop Dose Admin Acetaminophen 650 mg 07/09/21 16:02 07/22/21 16:44 Acetaminophen 325 Mg Tablet PO 650 mg Q6H PRN Administration Headache/Pain Mild Scale (1-3) Al Hydroxide/Mg Hydroxide 30 ml 07/09/21 16:02 Magnesium Hydrox/Alum Hydrox 30 Ml Oral.Susp PO Q6H PRN Heartburn/Nausea Albuterol Sulfate 2 puff 07/09/21 17:08 07/21/21 10:07 Albuterol Sulfate 90 Mcg 8 Gm Inhaler INHALE 2 puff Q6H PRN Administration Shortness of Breath/Wheezing Amlodipine Besylate 10 mg 07/12/21 09:00 07/22/21 08:45 Amlodipine Besylate 5 Mg Tablet PO 10 mg DAILY TAZ Administration Protocol Brexpiprazole 2 mg 07/19/21 09:00 07/22/21 08:44 Brexpiprazole 1 Mg Tablet PO 2 mg DAILY TAZ Administration Dibucaine 1 appl 07/19/21 13:28 07/21/21 10:06 Dibucaine 1 % Oint 28 Gm Tube TOPICAL 1 appl QID PRN Administration Hemorrhoids Protocol Docusate Sodium 100 mg 07/09/21 21:00 07/22/21 22:15 Docusate Sodium 100 Mg Capsule PO 100 mg BID TAZ Administration Escitalopram Oxalate 10 mg 07/10/21 09:00 07/22/21 08:44 Escitalopram Oxalate 10 Mg Tablet PO 10 mg DAILY TAZ Administration Finasteride 5 mg 07/10/21 09:00 07/22/21 08:45 Finasteride 5 Mg Tablet PO 5 mg DAILY TAZ Administration Gabapentin 300 mg 07/09/21 21:00 07/22/21 22:16 Gabapentin 300 Mg Capsule PO 300 mg TID TAZ Administration Hydrocortisone 1 appl 07/19/21 14:30 07/23/21 02:11 Hydrocortisone 2.5 % Rectal Cr 30 Gm Tube AL Not Given BID TAZ Ibuprofen 400 mg 07/10/21 13:25 07/23/21 05:04 Ibuprofen 400 Mg Tablet PO 400 mg Q6H PRN Administration Pain, Moderate (Pain Scale 4-6 Lamotrigine 100 mg 07/09/21 21:00 07/22/21 22:16 Lamotrigine 100 Mg Tablet PO 100 mg BID TAZ Administration Latanoprost 1 drop 07/09/21 21:00 07/22/21 22:17 Latanoprost 0.005 % Ophth No 2.5 Ml Drops EYE-BOTH 1 drop BEDTIME TAZ Administration Lisinopril 40 mg 07/10/21 09:00 07/22/21 08:44 Lisinopril 40 Mg Tablet PO 40 mg DAILY TAZ Administration Protocol Lorazepam 0.5 mg 07/18/21 17:41 07/23/21 05:04 Lorazepam 0.5 Mg Tablet PO 0.5 mg Q6H PRN Administration anxiety/restlessness Magnesium Hydroxide 30 ml 07/09/21 16:02 07/18/21 14:48 Milk Of Magnesia 30 Ml Oral.Susp PO 30 ml DAILY PRN Administration Constipation Melatonin 6 mg 07/09/21 21:00 07/22/21 22:15 Melatonin 3 Mg Tablet PO 6 mg BEDTIME TAZ Administration Mirtazapine 30 mg 07/09/21 21:00 07/22/21 22:16 Mirtazapine 30 Mg Tablet PO 30 mg BEDTIME TAZ Administration Multivitamins/Minerals 1 tab 07/10/21 09:00 07/22/21 08:44 Multivitamin With Minerals Tablet PO 1 tab DAILY TAZ Administration Ondansetron HCl 4 mg 07/17/21 08:57 Ondansetron Hcl 4 Mg/2 Ml Vial IVPUSH ONCE PRN Nausea and Vomiting Polyethylene Glycol 17 gm 07/09/21 17:08 07/22/21 19:43 Polyethylene Glycol 3350 17 Gm Powd.Pack PO 17 gm DAILY PRN Administration Constipation Psyllium Hydrophilic Mucilloid 3.4 gm 07/10/21 09:00 07/22/21 10:17 Psyllium Seed 3.4 Gm Powd.Pack PO 3.4 gm DAILY TAZ Administration Quetiapine Fumarate 25 mg 07/16/21 10:00 07/22/21 05:38 Quetiapine Fumarate 25 Mg Tablet PO 25 mg Q4H PRN Administration Anxiety Sodium Biphosphate/Sodium Phosphate 133 ml 07/09/21 17:08 Sodium Phosphate,[place]-Dibasic 133 Ml Enema AL ONCE PRN Constipation Trazodone HCl 300 mg 07/13/21 21:00 07/22/21 22:15 Trazodone Hcl 100 Mg Tablet PO 300 mg BEDTIME TAZ Administration Allergies Allergies Allergy/AdvReac Type Severity Reaction Status Date / Time fentanyl [FENTANYL] Allergy Intermediate unknown Verified 05/22/21 11:43 Assessment & Plan Assessment & Plan (1) Major depressive disorder, recurrent severe without psychotic features: Status: Acute Code(s): F33.2 - Major depressive disorder, recurrent severe without psychotic features Assessment and Plan: Continue ECT Rex[facility]i mirtazapine encourage coping strategies ECT in a.m. (2) Cognitive and neurobehavioral dysfunction following brain injury: Status: Acute Code(s): G31.89 - Other specified degenerative diseases of nervous system; F09 - Unspecified mental disorder due to known physiological condition; S06.9X9S - Unspecified intracranial injury with loss of consciousness of unspecified duration, sequela (3) HTN (hypertension): Status: Acute Code(s): I10 - Essential (primary) hypertension Assessment and Plan: ReStart ECT . [facility] ECT for tomorrow her amlodipine increased to 10 mg daily for hypertension monitor for self-harming behavior Continue ECT monitor response to [facility] hosp consult rash pruritis Greater than 50% of the session was spent on counseling and/or coordination of care Reason for contiued inpatient stay Substantial Risk for: inability to function
[2021-07-22 08:44] VITALS: BP 121/77; PULSE 73
[2021-07-22] MEDS: Docusate Sodium 100 MG CAPSULE PO ×2 (08:44→22:15)
[2021-07-22] MEDS: Gabapentin 300 MG CAPSULE PO ×3 (08:44→22:16)
[2021-07-22] MEDS: Escitalopram Oxalate 10 MG TABLET PO (08:44)
[2021-07-22] MEDS: Brexpiprazole 1 MG TABLET 2 MG PO (08:44)
[2021-07-22] MEDS: lisinopriL 40 MG TABLET PO (08:44)
[2021-07-22 08:45] VITALS: BP 121/77; PULSE 73
[2021-07-22] MEDS: Finasteride 5 MG TABLET PO (08:45)
[2021-07-22] MEDS: lamoTRIgine 100 MG TABLET PO ×2 (08:45→22:16)
[2021-07-22] MEDS: amLODIPine Besylate 5 MG TABLET 10 MG PO (08:45)
[2021-07-22] MEDS: Acetaminophen 325 MG TABLET 650 MG PO (16:44)
[2021-07-22] MEDS: polyethylene glycoL 3350 17 GM POWD.PACK PO (19:43)
[2021-07-22] MEDS: Melatonin 3 MG TABLET 6 MG PO (22:15)
[2021-07-22] MEDS: traZODone HCL 100 MG TABLET 300 MG PO (22:15)
[2021-07-22] MEDS: Mirtazapine 30 MG TABLET PO (22:16)
[2021-07-22] MEDS: Latanoprost 0.005 % Ophth Sol 2.5 ML DROPS 1 DROP EYE-BOTH (22:17)
[2021-07-23] MEDS: LORazepam 0.5 MG TABLET PO ×3 (05:04→18:11)
[2021-07-23] MEDS: Ibuprofen 400 MG TABLET PO (05:04)
[2021-07-23 06:00] VITALS: BP 154/73; PULSE 154; TEMP 36.6; O2SAT 97
[2021-07-23 10:00] VITALS: BP 154/73; PULSE 73
[2021-07-23] MEDS: lisinopriL 40 MG TABLET PO (10:00)
[2021-07-23] MEDS: Escitalopram Oxalate 10 MG TABLET PO (10:00)
[2021-07-23] MEDS: Brexpiprazole 1 MG TABLET 2 MG PO (10:00)
[2021-07-23 10:01] VITALS: BP 154/73; PULSE 73
[2021-07-23] MEDS: lamoTRIgine 100 MG TABLET PO ×2 (10:01→21:05)
[2021-07-23] MEDS: Finasteride 5 MG TABLET PO (10:01)
[2021-07-23] MEDS: amLODIPine Besylate 5 MG TABLET 10 MG PO (10:01)
[2021-07-23] MEDS: Gabapentin 300 MG CAPSULE PO ×3 (10:01→21:04)
[2021-07-23] MEDS: Docusate Sodium 100 MG CAPSULE PO ×2 (10:01→21:04)
[2021-07-23] MEDS: Albuterol Sulfate 90 MCG 8 GM INHALER 2 PUFF INHALE (10:56)
[2021-07-23] MEDS: Hydrocortisone 2.5 % Rectal Cr 30 GM TUBE 1 APPL PR ×2 (10:57→21:06)
[2021-07-23] MEDS: polyethylene glycoL 3350 17 GM POWD.PACK PO (13:28)
--- NOTE | 2021-07-23 14:43 | MHC.CLN ---
F/U WEIGHT 07/20=102.1 KG. WEIGHT ON 07/19=112.6 KG LIKELY ERROR. USED ETRSXV=865.1 KG FOR ESTIMATED NEEDS. CONTINUE REGULAR DIET AND PROVIDE YOGURT EACH BREAKFAST TO INCREASE DIETARY PROTEIN.
[2021-07-23 17:46] VITALS: BP 169/84; PULSE 81; RESP 20; TEMP 36.8; O2SAT 97
[2021-07-23] MEDS: Melatonin 3 MG TABLET 6 MG PO (21:03)
[2021-07-23] MEDS: traZODone HCL 100 MG TABLET 300 MG PO (21:04)
[2021-07-23] MEDS: Mirtazapine 30 MG TABLET PO (21:05)
[2021-07-23] MEDS: Latanoprost 0.005 % Ophth Sol 2.5 ML DROPS 1 DROP EYE-BOTH (21:06)
--- NOTE | 2021-07-23 21:45 | HO.PSYCHPN ---
Subjective Subjective Date of Service: 07/23/21 Reason For Visit: Depression SI Subjective Notes: Conditional Voluntary Guardianship: No Interim History: Patient seen in psychiatric follow-up. Patient continues to be depressed ruminating has intermittent thoughts he would be better off fearful if he were to go back to the prison in this mental state he feels ECT has been helpful does not feel yet he has the where with all to deal with maintaining his own stability and safety Medication Compliance: Yes Mental Status Exam Mental Status Exam Narrative: Appearance: casually groomed, SAD AND ANXIOUS LOOKING IN APPEARANCE Behavior:cooperative psychomotor: no agitation or retardation noted Speech:clear, normal rate/rhythm, spontaneous Thought process:linear Thought content:no signs of psychosis, future oriented in that has hope that tx will help mood STILL PREOCCUPIED WITH THOUGHTS HE MAY BE BETTER OFF Mood Affect: does brightens at times SI:denies HI:none VH/AH:none Delusions:none Insight/judgment:fair x 2. Memory/cog: alert, oriented x 3. not formally tested. Diagnostics Vital Signs (24Hr): Vital Signs - 24 hr 07/23/21 06:00 07/23/21 10:00 07/23/21 10:01 Temperature 97.9 F Pulse Rate 154 H 73 73 Respiratory Rate Blood Pressure 154/73 H 154/73 H 154/73 H Pulse Oximetry 97 07/23/21 17:46 Temperature 98.2 F Pulse Rate 81 Respiratory Rate 20 Blood Pressure 169/84 H Pulse Oximetry 97 Body Mass Index 28.9 Labs Results: 07/09/21 14:05 07/09/21 14:05 Medications Medications Current Medications Generic Name Dose Route Start Last Admin Trade Name Freq PRN Reason Stop Dose Admin Acetaminophen 650 mg 07/09/21 16:02 07/22/21 16:44 Acetaminophen 325 Mg Tablet PO 650 mg Q6H PRN Administration Headache/Pain Mild Scale (1-3) Al Hydroxide/Mg Hydroxide 30 ml 07/09/21 16:02 Magnesium Hydrox/Alum Hydrox 30 Ml Oral.Susp PO Q6H PRN Heartburn/Nausea Albuterol Sulfate 2 puff 07/09/21 17:08 07/23/21 10:56 Albuterol Sulfate 90 Mcg 8 Gm Inhaler INHALE 2 puff Q6H PRN Administration Shortness of Breath/Wheezing Amlodipine Besylate 10 mg 07/12/21 09:00 07/23/21 10:01 Amlodipine Besylate 5 Mg Tablet PO 10 mg DAILY TAZ Administration Protocol Brexpiprazole 2 mg 07/19/21 09:00 07/23/21 10:00 Brexpiprazole 1 Mg Tablet PO 2 mg DAILY TAZ Administration Dibucaine 1 appl 07/19/21 13:28 07/23/21 21:06 Dibucaine 1 % Oint 28 Gm Tube TOPICAL 1 appl QID PRN Administration Hemorrhoids Protocol Docusate Sodium 100 mg 07/09/21 21:00 07/23/21 21:04 Docusate Sodium 100 Mg Capsule PO 100 mg BID TAZ Administration Escitalopram Oxalate 10 mg 07/10/21 09:00 07/23/21 10:00 Escitalopram Oxalate 10 Mg Tablet PO 10 mg DAILY TAZ Administration Finasteride 5 mg 07/10/21 09:00 07/23/21 10:01 Finasteride 5 Mg Tablet PO 5 mg DAILY TAZ Administration Gabapentin 300 mg 07/09/21 21:00 07/23/21 21:04 Gabapentin 300 Mg Capsule PO 300 mg TID TAZ Administration Hydrocortisone 1 appl 07/19/21 14:30 07/23/21 21:06 Hydrocortisone 2.5 % Rectal Cr 30 Gm Tube [place] 1 appl BID TAZ Administration Ibuprofen 400 mg 07/10/21 13:25 07/23/21 05:04 Ibuprofen 400 Mg Tablet PO 400 mg Q6H PRN Administration Pain, Moderate (Pain Scale 4-6 Lamotrigine 100 mg 07/09/21 21:00 07/23/21 21:05 Lamotrigine 100 Mg Tablet PO 100 mg BID TAZ Administration Latanoprost 1 drop 07/09/21 21:00 07/23/21 21:06 Latanoprost 0.005 % Ophth No 2.5 Ml Drops EYE-BOTH 1 drop BEDTIME TAZ Administration Lisinopril 40 mg 07/10/21 09:00 07/23/21 10:00 Lisinopril 40 Mg Tablet PO 40 mg DAILY TAZ Administration Protocol Lorazepam 0.5 mg 07/23/21 17:59 07/23/21 18:11 Lorazepam 0.5 Mg Tablet PO 0.5 mg BID PRN Administration anxiety/restlessness Magnesium Hydroxide 30 ml 07/09/21 16:02 07/18/21 14:48 Milk Of Magnesia 30 Ml Oral.Susp PO 30 ml DAILY PRN Administration Constipation Melatonin 6 mg 07/09/21 21:00 07/23/21 21:03 Melatonin 3 Mg Tablet PO 6 mg BEDTIME TAZ Administration Mirtazapine 30 mg 07/09/21 21:00 07/23/21 21:05 Mirtazapine 30 Mg Tablet PO 30 mg BEDTIME TAZ Administration Multivitamins/Minerals 1 tab 07/10/21 09:00 07/23/21 10:00 Multivitamin With Minerals Tablet PO 1 tab DAILY TAZ Administration Ondansetron HCl 4 mg 07/17/21 08:57 Ondansetron Hcl 4 Mg/2 Ml Vial IVPUSH ONCE PRN Nausea and Vomiting Polyethylene Glycol 17 gm 07/09/21 17:08 07/23/21 13:28 Polyethylene Glycol 3350 17 Gm Powd.Pack PO 17 gm DAILY PRN Administration Constipation Psyllium Hydrophilic Mucilloid 3.4 gm 07/10/21 09:00 07/23/21 10:06 Psyllium Seed 3.4 Gm Powd.Pack PO 3.4 gm DAILY TAZ Administration Quetiapine Fumarate 25 mg 07/16/21 10:00 07/22/21 05:38 Quetiapine Fumarate 25 Mg Tablet PO 25 mg Q4H PRN Administration Anxiety Sodium Biphosphate/Sodium Phosphate 133 ml 07/09/21 17:08 Sodium Phosphate,[place]-Dibasic 133 Ml Enema [place] ONCE PRN Constipation Trazodone HCl 300 mg 07/13/21 21:00 07/23/21 21:04 Trazodone Hcl 100 Mg Tablet PO 300 mg BEDTIME TAZ Administration Allergies Allergies Allergy/AdvReac Type Severity Reaction Status Date / Time fentanyl [FENTANYL] Allergy Intermediate unknown Verified 05/22/21 11:43 Assessment & Plan Assessment & Plan (1) Major depressive disorder, recurrent severe without psychotic features: Status: Acute Code(s): F33.2 - Major depressive disorder, recurrent severe without psychotic features Assessment and Plan: Continue ECT Rex[facility]i mirtazapine encourage coping strategies ECT in a.m. (2) Cognitive and neurobehavioral dysfunction following brain injury: Status: Acute Code(s): G31.89 - Other specified degenerative diseases of nervous system; F09 - Unspecified mental disorder due to known physiological condition; S06.9X9S - Unspecified intracranial injury with loss of consciousness of unspecified duration, sequela (3) HTN (hypertension): Status: Acute Code(s): I10 - Essential (primary) hypertension Assessment and Plan: . [facility] ECT for tomorrow her amlodipine increased to 10 mg daily for hypertension monitor for self-harming behavior Continue ECT monitor response to [facility] discharge held off patient does not seem stable for discharge Greater than 50% of the session was spent on counseling and/or coordination of care Reason for contiued inpatient stay Substantial Risk for: harm to self and rapid decompensation
[2021-07-24] VITALS (11 sets, daily range): BP systolic 128–159; BP diastolic 60–93; PULSE 62–69; RESP 14–20; TEMP 36.2–36.8; O2SAT 94–98
[2021-07-24] MEDS: Ibuprofen 400 MG TABLET PO ×3 (03:56→21:33)
[2021-07-24] MEDS: amLODIPine Besylate 5 MG TABLET 10 MG PO (05:36)
[2021-07-24] MEDS: lisinopriL 40 MG TABLET PO (05:36)
[2021-07-24] MEDS: Lactated Ringers 1,000 ML 50 ML IVCONT (06:45)
--- NOTE | 2021-07-24 07:02 | HO.ANESPROP2 ---
[facility] Active Problems Active Problems: All Active Problems (Updated 05/24/21 @ 23:38 by Addy Haskins MD) Major depressive disorder, recurrent severe without psychotic features (Acute) Cognitive and neurobehavioral dysfunction following brain injury (Acute) HTN (hypertension) (Acute) Past Medical History Medical History Alcohol use disorder, severe, in sustained remission Cognitive and neurobehavioral dysfunction following brain injury Hernia HTN (hypertension) Major depressive disorder, recurrent Major depressive disorder, recurrent severe without psychotic features Functional capacity: independent ambulation Family History Family history of problems with anesthesia: No Surgical History Surgical History H/O brain surgery History of hip replacement S/P cholecystectomy History of Problems with Anesthesia: No Social History Social History Household Members: Caregiver and Other Household Members Other:: Pt lives in a halfway Housing: Other Housing Other:: Half-Way Do you presently have visiting nurse or other home services: No Patient Tobacco Use Status: Never used Tobacco Use of substances other than those prescribed or required for medical reasons: No Are you DNR?: No Advance Directives: Yes Advance Directives on File: Yes Advance Directives Date on File: 05/27/19 Recently lost weight without trying: Yes How much weight loss: 2-13 pounds Nutrition Risks: No Nutritional Risk service: No Sexual orientation: Straight/Heterosexual Meds Allergies Allergy/AdvReac Type Severity Reaction Status Date / Time fentanyl [FENTANYL] Allergy Intermediate unknown Verified 05/22/21 11:43 Active Medications: Current Medications Generic Name Dose Route Start Last Admin Trade Name Freq PRN Reason Stop Dose Admin Acetaminophen 650 mg 07/09/21 16:02 07/22/21 16:44 Acetaminophen 325 Mg Tablet PO 650 mg Q6H PRN Administration Headache/Pain Mild Scale (1-3) Al Hydroxide/Mg Hydroxide 30 ml 07/09/21 16:02 Magnesium Hydrox/Alum Hydrox 30 Ml Oral.Susp PO Q6H PRN Heartburn/Nausea Albuterol Sulfate 2 puff 07/09/21 17:08 07/23/21 10:56 Albuterol Sulfate 90 Mcg 8 Gm Inhaler INHALE 2 puff Q6H PRN Administration Shortness of Breath/Wheezing Amlodipine Besylate 10 mg 07/12/21 09:00 07/24/21 05:36 Amlodipine Besylate 5 Mg Tablet PO 10 mg DAILY TAZ Administration Protocol Brexpiprazole 2 mg 07/19/21 09:00 07/23/21 10:00 Brexpiprazole 1 Mg Tablet PO 2 mg DAILY TAZ Administration Dibucaine 1 appl 07/19/21 13:28 07/23/21 21:06 Dibucaine 1 % Oint 28 Gm Tube TOPICAL 1 appl QID PRN Administration Hemorrhoids Protocol Docusate Sodium 100 mg 07/09/21 21:00 07/23/21 21:04 Docusate Sodium 100 Mg Capsule PO 100 mg BID TAZ Administration Escitalopram Oxalate 10 mg 07/10/21 09:00 07/23/21 10:00 Escitalopram Oxalate 10 Mg Tablet PO 10 mg DAILY TAZ Administration Finasteride 5 mg 07/10/21 09:00 07/23/21 10:01 Finasteride 5 Mg Tablet PO 5 mg DAILY TAZ Administration Gabapentin 300 mg 07/09/21 21:00 07/23/21 21:04 Gabapentin 300 Mg Capsule PO 300 mg TID TAZ Administration Hydrocortisone 1 appl 07/19/21 14:30 07/23/21 21:06 Hydrocortisone 2.5 % Rectal Cr 30 Gm Tube [place] 1 appl BID TAZ Administration Lactated Ringer's 1,000 mls @ 50 mls/hr 07/24/21 07:15 Lr IVCONT .Q20H TAZ Ibuprofen 400 mg 07/10/21 13:25 07/24/21 03:56 Ibuprofen 400 Mg Tablet PO 400 mg Q6H PRN Administration Pain, Moderate (Pain Scale 4-6 Lamotrigine 100 mg 07/09/21 21:00 07/23/21 21:05 Lamotrigine 100 Mg Tablet PO 100 mg BID TAZ Administration Latanoprost 1 drop 07/09/21 21:00 07/23/21 21:06 Latanoprost 0.005 % Ophth No 2.5 Ml Drops EYE-BOTH 1 drop BEDTIME TAZ Administration Lisinopril 40 mg 07/10/21 09:00 07/24/21 05:36 Lisinopril 40 Mg Tablet PO 40 mg DAILY TAZ Administration Protocol Lorazepam 0.5 mg 07/23/21 17:59 07/23/21 18:11 Lorazepam 0.5 Mg Tablet PO 0.5 mg BID PRN Administration anxiety/restlessness Magnesium Hydroxide 30 ml 07/09/21 16:02 07/18/21 14:48 Milk Of Magnesia 30 Ml Oral.Susp PO 30 ml DAILY PRN Administration Constipation Melatonin 6 mg 07/09/21 21:00 07/23/21 21:03 Melatonin 3 Mg Tablet PO 6 mg BEDTIME TAZ Administration Mirtazapine 30 mg 07/09/21 21:00 07/23/21 21:05 Mirtazapine 30 Mg Tablet PO 30 mg BEDTIME TAZ Administration Multivitamins/Minerals 1 tab 07/10/21 09:00 07/23/21 10:00 Multivitamin With Minerals Tablet PO 1 tab DAILY TAZ Administration Ondansetron HCl 4 mg 07/17/21 08:57 Ondansetron Hcl 4 Mg/2 Ml Vial IVPUSH ONCE PRN Nausea and Vomiting Polyethylene Glycol 17 gm 07/09/21 17:08 07/23/21 13:28 Polyethylene Glycol 3350 17 Gm Powd.Pack PO 17 gm DAILY PRN Administration Constipation Psyllium Hydrophilic Mucilloid 3.4 gm 07/10/21 09:00 07/23/21 10:06 Psyllium Seed 3.4 Gm Powd.Pack PO 3.4 gm DAILY ATZ Administration Quetiapine Fumarate 25 mg 07/16/21 10:00 07/22/21 05:38 Quetiapine Fumarate 25 Mg Tablet PO 25 mg Q4H PRN Administration Anxiety Sodium Biphosphate/Sodium Phosphate 133 ml 07/09/21 17:08 Sodium Phosphate,[place]-Dibasic 133 Ml Enema [place] ONCE PRN Constipation Trazodone HCl 300 mg 07/13/21 21:00 07/23/21 21:04 Trazodone Hcl 100 Mg Tablet PO 300 mg BEDTIME TAZ Administration Home Medications Medication Instructions Recorded Confirmed Last Taken Type Tylenol 650 mg PO Q6-8H PRN 05/22/21 05/22/21 Unknown History albuterol 90 mcg/actuation aerosol See Rx Instructions .ROUTE .COMPLEX 05/22/21 05/22/21 Unknown History inhaler clotrimazole 1 % topical solution See Rx Instructions .ROUTE 05/22/21 05/22/21 Unknown History .COMPLEX PRN dextromethorphan-guaifenesin 10 10 ml PO Q6-8H PRN 05/22/21 05/22/21 Unknown History mg-200 mg/5 mL oral liquid docusate sodium 100 mg capsule 1 cap PO BID 05/22/21 05/22/21 Unknown History docusate sodium 100 mg capsule See Rx Instructions .ROUTE 05/22/21 05/22/21 Unknown History .COMPLEX PRN finasteride 5 mg tablet 1 tab PO DAILY 05/22/21 05/22/21 Unknown History glycerin 1 drp OPHTHALMIC (EYE) Q1-2H PRN 05/22/21 05/22/21 Unknown History latanoprost 0.005 % eye drops 1 drp OPHTHALMIC (EYE) DAILY 05/22/21 05/22/21 Unknown History magnesium hydroxide 400 mg/5 mL 2,400 mg PO PRN 05/22/21 Unknown History oral suspension (Milk of Magnesia) melatonin 5 mg tablet 5 mg PO BEDTIME 05/22/21 05/22/21 Unknown History cdcetgxowlmw-guypmsgy-sjqzmq tablet 1 tab PO DAILY 05/22/21 05/22/21 Unknown History polyethylene glycol 3350 17 17 g PO DAILY 05/22/21 05/22/21 Unknown History gram/dose oral powder polyethylene glycol 3350 17 17 g PO DAILY PRN 05/22/21 05/22/21 Unknown History gram/dose oral powder psyllium husk 0.4 gram capsule 0.4 g PO DAILY 05/22/21 05/22/21 Unknown History (Metamucil) sodium phosphates 19 gram-7 118 ml IA DAILY PRN 05/22/21 05/22/21 Unknown History gram/118 mL enema (Fleet Enema) trazodone 150 mg tablet 2 tab PO BEDTIME 05/22/21 05/22/21 Unknown History Exam Exam Date and Time: July 24, 2021701 Height,Weight and Vital Signs: Height 6 ft 2 in Weight 102.1 kg Last Vital Signs Temp 97.2 F 07/24/21 06:45 Pulse 68 07/24/21 06:45 Resp 18 07/24/21 06:45 BP 139/76 07/24/21 06:45 Pulse Ox 98 07/24/21 06:45 Pertinent Lab Results Pertinent Lab Results: Laboratory Tests 07/09/21 07/09/21 07/09/21 14:02 14:05 14:05 WBC 6.3 RBC 4.32 L Hgb 14.3 Hct 42.7 MCV 98.8 H MCH 33.1 H MCHC 33.5 RDW 11.8 Plt Count 195 MPV 10.2 Immature Gran % (Auto) 0.8 H Neut % (Auto) 58.9 Lymph % (Auto) 28.6 [place] % (Auto) 7.8 Eos % (Auto) 3.6 Baso % (Auto) 0.3 Lymph # (Auto) 1.8 [place] # (Auto) 0.5 Eos # (Auto) 0.2 Baso # (Auto) 0.0 Abs Immat Gran (auto) 0.05 H Absolute Neuts (auto) 3.7 Absolute Nucleated RBC 0.000 Nucleated RBC % (auto) 0.0 Sodium 141 Potassium 4.2 Chloride 107 Carbon Dioxide 24 Anion Gap 14 BUN 19 H Creatinine 0.85 Estim Creat Clear Calc Not Reportable Estimated GFR > 60 Random Glucose 73 Calcium 9.7 Total Bilirubin 0.7 AST 29 ALT 46 H Alkaline Phosphatase 68 D Total Protein 7.2 Albumin 4.7 COVID-19 (RACHEL) Negative COVID-19 Clin Com See Note Airway Mallampati Class: III (Caps laterally) TM Dist: >3cm Neck ROM: Full Heart: rrr Lungs: cta Assessment and Plan Assessment Anesthesia Assessment: Anesthesia Plan Discussed and Chart Reviewed Final Anesthetic Review Family History of Problems with Anesthesia: No History of Problems with Anesthesia: No NPO: Yes ASA Class: III Final Preanesthetic Review: No Changes in Pt Med Stat, Meds/Allgs Chart Reviewed and Consent Obtained/Reviewed Patient Risk: Intermediate Procedure Risk: Intermediate Anesthetic Plan Anesthetic Plan: GA Disposition: Standard PACU
--- NOTE | 2021-07-24 07:58 | MHC.SHP ---
Pre-Procedural Eval Section A Date of Service: 07/24/21 The patient is an INPATIENT: Yes Changes since office visit: Yes Changes in Medication and Yes Patient answered all questions; No Cold of Flu in the past 2 weeks and No New Medical Problems The History & Physical has been completed within 30 days and I have reviewed it.: Yes Section B Chief Complaint: Depression SI Allergies: Allergies Allergy/AdvReac Type Severity Reaction Status Date / Time fentanyl [FENTANYL] Allergy Intermediate unknown Verified 05/22/21 11:43 Plan I have reviewed the history and physical and performed a pertinent physical examination on my patient. No changes have occurred unless specified.
--- NOTE | 2021-07-24 07:58 | HO.ECTPROC ---
ECT Procedure Note Diagnosis/Treatment Date of Service: 07/24/21 Diagnosis: Major Depressive Disorder Current Treatment Number: 13 Treatment: Other (continuation ect) Interval Clinical Notes: Patient depressed withdrawn intermittently hopeless helpless ECT Settings Device: THYMATRON DGx Electrode Placement: Bifrontal Program/Pulse Width: 0.50 Energy Percent: 100 Seizure Duration By EEG (in seconds): 64 Medications Administration General Anesthetic: Etomidate (16) Muscle Relaxant: Succinylcholine (100) Ancillary Medications Cardiovascular Medications: Labetolol (20 mg pre tx ) Miscillaneous Medications: Propofol Airway Management Airway Management: Bag Mask Ventilation Treatment Recommendations Electrode Placement: Bifrontal Program/Pulse Width: 0.50 Pt Tolerated Procedure w/o Issue: Yes
[2021-07-24] MEDS: Docusate Sodium 100 MG CAPSULE PO ×2 (09:46→21:27)
[2021-07-24] MEDS: Gabapentin 300 MG CAPSULE PO ×3 (09:46→21:27)
[2021-07-24] MEDS: polyethylene glycoL 3350 17 GM POWD.PACK PO (09:47)
[2021-07-24] MEDS: Escitalopram Oxalate 10 MG TABLET PO (09:47)
[2021-07-24] MEDS: Finasteride 5 MG TABLET PO (09:47)
[2021-07-24] MEDS: Brexpiprazole 1 MG TABLET 2 MG PO (09:47)
[2021-07-24] MEDS: lamoTRIgine 100 MG TABLET PO ×2 (09:47→21:27)
--- NOTE | 2021-07-24 21:07 | P.PNPSI_ITS ---
Subjective Subjective Date of Service: 07/25/21 Reason For Visit: Depression SI Subjective Notes: Conditional Voluntary Guardianship: No Interim History: patient was sedated from ECT remains ruminating see ECT note Medication Compliance: Yes Mental Status Exam Mental Status Exam Narrative: Appearance: casually groomed, SAD AND ANXIOUS LOOKING IN APPEARANCE Behavior:cooperative psychomotor: no agitation or retardation noted Speech:clear, normal rate/rhythm, spontaneous Thought process:linear Thought content:no signs of psychosis, future oriented in that has hope that tx will help mood STILL PREOCCUPIED WITH THOUGHTS HE MAY BE BETTER OFF ongoing Mood depressed Affect: does brightens at times SI:denies HI:none VH/AH:none Delusions:none Insight/judgment:fair x 2. Memory/cog: alert, oriented x 3. not formally tested. Diagnostics Vital Signs (24Hr): Vital Signs - 24 hr 07/24/21 05:30 07/24/21 05:36 07/24/21 06:45 Temperature 98 F 97.2 F Pulse Rate 64 64 68 Respiratory Rate 18 18 Blood Pressure 131/67 131/67 139/76 Pulse Oximetry 97 98 07/24/21 08:18 07/24/21 08:22 07/24/21 08:27 Temperature 98.3 F Pulse Rate 69 65 65 Respiratory Rate 20 14 14 Blood Pressure 159/93 H 148/84 H 143/79 H Pulse Oximetry 95 96 95 07/24/21 08:32 07/24/21 08:47 07/24/21 09:18 Temperature 98.3 F 98.1 F Pulse Rate 65 62 66 Respiratory Rate 18 19 18 Blood Pressure 144/82 H 136/75 141/88 H Pulse Oximetry 94 96 95 07/24/21 18:00 07/24/21 21:01 Temperature 97.9 F 97.6 F Pulse Rate 67 65 Respiratory Rate 18 18 Blood Pressure 128/73 128/60 Pulse Oximetry 95 95 Body Mass Index 28.9 Labs Results: 07/09/21 14:05 07/09/21 14:05 Medications Medications Current Medications Generic Name Dose Route Start Last Admin Trade Name Freq PRN Reason Stop Dose Admin Acetaminophen 650 mg 07/09/21 16:02 07/22/21 16:44 Acetaminophen 325 Mg Tablet PO 650 mg Q6H PRN Administration Headache/Pain Mild Scale (1-3) Al Hydroxide/Mg Hydroxide 30 ml 07/09/21 16:02 Magnesium Hydrox/Alum Hydrox 30 Ml Oral.Susp PO Q6H PRN Heartburn/Nausea Albuterol Sulfate 2 puff 07/09/21 17:08 07/23/21 10:56 Albuterol Sulfate 90 Mcg 8 Gm Inhaler INHALE 2 puff Q6H PRN Administration Shortness of Breath/Wheezing Amlodipine Besylate 10 mg 07/12/21 09:00 07/24/21 05:36 Amlodipine Besylate 5 Mg Tablet PO 10 mg DAILY TAZ Administration Protocol Brexpiprazole 2 mg 07/19/21 09:00 07/24/21 09:47 Brexpiprazole 1 Mg Tablet PO 2 mg DAILY TAZ Administration Dibucaine 1 appl 07/19/21 13:28 07/23/21 21:06 Dibucaine 1 % Oint 28 Gm Tube TOPICAL 1 appl QID PRN Administration Hemorrhoids Protocol Docusate Sodium 100 mg 07/09/21 21:00 07/24/21 09:46 Docusate Sodium 100 Mg Capsule PO 100 mg BID TAZ Administration Escitalopram Oxalate 10 mg 07/10/21 09:00 07/24/21 09:47 Escitalopram Oxalate 10 Mg Tablet PO 10 mg DAILY TAZ Administration Finasteride 5 mg 07/10/21 09:00 07/24/21 09:47 Finasteride 5 Mg Tablet PO 5 mg DAILY TAZ Administration Gabapentin 300 mg 07/09/21 21:00 07/24/21 15:15 Gabapentin 300 Mg Capsule PO 300 mg TID TAZ Administration Hydrocortisone 1 appl 07/19/21 14:30 07/24/21 20:21 Hydrocortisone 2.5 % Rectal Cr 30 Gm Tube DE Not Given BID [facility] Ibuprofen 400 mg 07/10/21 13:25 07/24/21 09:46 Ibuprofen 400 Mg Tablet PO 400 mg Q6H PRN Administration Pain, Moderate (Pain Scale 4-6 Lamotrigine 100 mg 07/09/21 21:00 07/24/21 09:47 Lamotrigine 100 Mg Tablet PO 100 mg BID TAZ Administration Latanoprost 1 drop 07/09/21 21:00 07/23/21 21:06 Latanoprost 0.005 % Ophth No 2.5 Ml Drops EYE-BOTH 1 drop BEDTIME TAZ Administration Lisinopril 40 mg 07/10/21 09:00 07/24/21 05:36 Lisinopril 40 Mg Tablet PO 40 mg DAILY TAZ Administration Protocol Lorazepam 0.5 mg 07/23/21 17:59 07/23/21 18:11 Lorazepam 0.5 Mg Tablet PO 0.5 mg BID PRN Administration anxiety/restlessness Magnesium Hydroxide 30 ml 07/09/21 16:02 07/18/21 14:48 Milk Of Magnesia 30 Ml Oral.Susp PO 30 ml DAILY PRN Administration Constipation Melatonin 6 mg 07/09/21 21:00 07/23/21 21:03 Melatonin 3 Mg Tablet PO 6 mg BEDTIME TAZ Administration Mirtazapine 30 mg 07/09/21 21:00 07/23/21 21:05 Mirtazapine 30 Mg Tablet PO 30 mg BEDTIME TAZ Administration Multivitamins/Minerals 1 tab 07/10/21 09:00 07/24/21 09:46 Multivitamin With Minerals Tablet PO 1 tab DAILY TAZ Administration Polyethylene Glycol 17 gm 07/09/21 17:08 07/24/21 09:47 Polyethylene Glycol 3350 17 Gm Powd.Pack PO 17 gm DAILY PRN Administration Constipation Psyllium Hydrophilic Mucilloid 3.4 gm 07/10/21 09:00 07/24/21 09:47 Psyllium Seed 3.4 Gm Powd.Pack PO 3.4 gm DAILY TAZ Administration Quetiapine Fumarate 25 mg 07/16/21 10:00 07/22/21 05:38 Quetiapine Fumarate 25 Mg Tablet PO 25 mg Q4H PRN Administration Anxiety Sodium Biphosphate/Sodium Phosphate 133 ml 07/09/21 17:08 Sodium Phosphate,[place]-Dibasic 133 Ml Enema [place] ONCE PRN Constipation Trazodone HCl 300 mg 07/13/21 21:00 07/23/21 21:04 Trazodone Hcl 100 Mg Tablet PO 300 mg BEDTIME TAZ Administration Allergies Allergies Allergy/AdvReac Type Severity Reaction Status Date / Time fentanyl [FENTANYL] Allergy Intermediate unknown Verified 05/22/21 11:43 Assessment & Plan Assessment & Plan (1) Major depressive disorder, recurrent severe without psychotic features: Status: Acute Code(s): F33.2 - Major depressive disorder, recurrent severe without psychotic features Assessment and Plan: Continue ECT Rexulti mirtazapine encourage coping strategies ECT in a.m. (2) Cognitive and neurobehavioral dysfunction following brain injury: Status: Acute Code(s): G31.89 - Other specified degenerative diseases of nervous system; F09 - Unspecified mental disorder due to known physiological condition; S06.9X9S - Unspecified intracranial injury with loss of consciousness of unspecified duration, sequela (3) HTN (hypertension): Status: Acute Code(s): I10 - Essential (primary) hypertension Assessment and Plan: . Rexulti ECT for tomorrow her amlodipine increased to 10 mg daily for hypertension monitor for self-harming behavior Continue ECT monitor response to Rexulti discharge held off patient does not seem stable for discharge Greater than 50% of the session was spent on counseling and/or coordination of care Reason for contiued inpatient stay Substantial Risk for: harm to self and rapid decompensation
[2021-07-24] MEDS: traZODone HCL 100 MG TABLET 300 MG PO (21:26)
[2021-07-24] MEDS: Melatonin 3 MG TABLET 6 MG PO (21:26)
[2021-07-24] MEDS: Mirtazapine 30 MG TABLET PO (21:27)
[2021-07-24] MEDS: Latanoprost 0.005 % Ophth Sol 2.5 ML DROPS 1 DROP EYE-BOTH (21:27)
[2021-07-25 07:00] VITALS: BMI 29.7
[2021-07-25 08:00] VITALS: BP 159/76; PULSE 61; RESP 18; TEMP 36.4; O2SAT 95
[2021-07-25] MEDS: Acetaminophen 325 MG TABLET 650 MG PO (08:08)
[2021-07-25] MEDS: Gabapentin 300 MG CAPSULE PO ×2 (08:09→14:35)
[2021-07-25] MEDS: Brexpiprazole 1 MG TABLET 2 MG PO (08:09)
[2021-07-25 08:10] VITALS: BP 159/76; PULSE 61
[2021-07-25] MEDS: lisinopriL 40 MG TABLET PO (08:10)
[2021-07-25] MEDS: Docusate Sodium 100 MG CAPSULE PO ×2 (08:10→21:14)
[2021-07-25] MEDS: amLODIPine Besylate 5 MG TABLET 10 MG PO (08:14)
[2021-07-25] MEDS: Escitalopram Oxalate 10 MG TABLET PO (08:15)
[2021-07-25] MEDS: lamoTRIgine 100 MG TABLET PO (08:15)
[2021-07-25] MEDS: LORazepam 0.5 MG TABLET PO (08:31)
[2021-07-25] MEDS: Finasteride 5 MG TABLET PO (10:21)
--- NOTE | 2021-07-25 10:34 | PC.NURSE ---
8am PRN APAP for headache WAS effective, reported ineffective in assesment in error
[2021-07-25] MEDS: Albuterol Sulfate 90 MCG 8 GM INHALER 2 PUFF INHALE (11:32)
[2021-07-25] MEDS: Lidocaine 4 % Patch ADH..PATCH 1 PATCH TRANSDERMA (11:58)
--- NOTE | 2021-07-25 20:39 | P.PNPSI_ITS ---
Subjective Subjective Date of Service: 07/25/21 Reason For Visit: Depression SI Subjective Notes: Conditional Voluntary Guardianship: No Interim History: patient seen in follow-up seen with social work. Extensive discussion regarding patient's demoralization from stroke and lack of activity since COVID. Discussed relationship between the biology of depression and need for behavioral activation and change in internal attitude if he is going to improve his quality of life. Patient feels ECT has been helpful Mental Status Exam Mental Status Exam Narrative: Appearance: casually groomed, Behavior:cooperative psychomotor: no agitation or retardation noted Speech:clear, normal rate/rhythm, spontaneous Thought process:linear Thought content:no signs of psychosis, future oriented in that has hope that tx will help mood ST ongoing Mood depressed Affect: does brightens at times SI: intermittent thoughts better off HI:none VH/AH:none Delusions:none Insight/judgment:fair x 2. Memory/cog: alert, oriented x 3. not formally tested. Diagnostics Vital Signs (24Hr): Vital Signs - 24 hr 07/24/21 21:01 07/25/21 08:00 07/25/21 08:10 Temperature 97.6 F 97.6 F Pulse Rate 65 61 61 Respiratory Rate 18 18 Blood Pressure 128/60 159/76 H 159/76 H Pulse Oximetry 95 95 Body Mass Index 29.7 Labs Results: 07/09/21 14:05 07/09/21 14:05 Medications Medications Current Medications Generic Name Dose Route Start Last Admin Trade Name Freq PRN Reason Stop Dose Admin Acetaminophen 650 mg 07/09/21 16:02 07/25/21 08:08 Acetaminophen 325 Mg Tablet PO 650 mg Q6H PRN Administration Headache/Pain Mild Scale (1-3) Al Hydroxide/Mg Hydroxide 30 ml 07/09/21 16:02 Magnesium Hydrox/Alum Hydrox 30 Ml Oral.Susp PO Q6H PRN Heartburn/Nausea Albuterol Sulfate 2 puff 07/09/21 17:08 07/25/21 11:32 Albuterol Sulfate 90 Mcg 8 Gm Inhaler INHALE 2 puff Q6H PRN Administration Shortness of Breath/Wheezing Amlodipine Besylate 10 mg 07/12/21 09:00 07/25/21 08:14 Amlodipine Besylate 5 Mg Tablet PO 10 mg DAILY TAZ Administration Protocol Brexpiprazole 2 mg 07/19/21 09:00 07/25/21 08:09 Brexpiprazole 1 Mg Tablet PO 2 mg DAILY TAZ Administration Dibucaine 1 appl 07/19/21 13:28 07/25/21 14:15 Dibucaine 1 % Oint 28 Gm Tube TOPICAL 1 appl QID PRN Administration Hemorrhoids Protocol Docusate Sodium 100 mg 07/09/21 21:00 07/25/21 08:10 Docusate Sodium 100 Mg Capsule PO 100 mg BID TAZ Administration Escitalopram Oxalate 10 mg 07/10/21 09:00 07/25/21 08:15 Escitalopram Oxalate 10 Mg Tablet PO 10 mg DAILY TAZ Administration Finasteride 5 mg 07/10/21 09:00 07/25/21 10:21 Finasteride 5 Mg Tablet PO 5 mg DAILY TAZ Administration Gabapentin 300 mg 07/09/21 21:00 07/25/21 14:35 Gabapentin 300 Mg Capsule PO 300 mg TID TAZ Administration Hydrocortisone 1 appl 07/19/21 14:30 07/25/21 10:44 Hydrocortisone 2.5 % Rectal Cr 30 Gm Tube GA Not Given BID TAZ Ibuprofen 400 mg 07/10/21 13:25 07/24/21 21:33 Ibuprofen 400 Mg Tablet PO 400 mg Q6H PRN Administration Pain, Moderate (Pain Scale 4-6 Lamotrigine 100 mg 07/09/21 21:00 07/25/21 08:15 Lamotrigine 100 Mg Tablet PO 100 mg BID ATZ Administration Latanoprost 1 drop 07/09/21 21:00 07/24/21 21:27 Latanoprost 0.005 % Ophth No 2.5 Ml Drops EYE-BOTH 1 drop BEDTIME TAZ Administration Lidocaine 1 patch 07/25/21 11:00 07/25/21 11:58 Lidocaine 4 % Patch Adh..Patch TRANSDERMA 1 patch DAILY TAZ Administration Protocol Lisinopril 40 mg 07/10/21 09:00 07/25/21 08:10 Lisinopril 40 Mg Tablet PO 40 mg DAILY TAZ Administration Protocol Lorazepam 0.5 mg 07/23/21 17:59 07/25/21 08:31 Lorazepam 0.5 Mg Tablet PO 0.5 mg BID PRN Administration anxiety/restlessness Magnesium Hydroxide 30 ml 07/09/21 16:02 07/18/21 14:48 Milk Of Magnesia 30 Ml Oral.Susp PO 30 ml DAILY PRN Administration Constipation Melatonin 6 mg 07/09/21 21:00 07/24/21 21:26 Melatonin 3 Mg Tablet PO 6 mg BEDTIME TAZ Administration Mirtazapine 30 mg 07/09/21 21:00 07/24/21 21:27 Mirtazapine 30 Mg Tablet PO 30 mg BEDTIME TAZ Administration Multivitamins/Minerals 1 tab 07/10/21 09:00 07/25/21 08:09 Multivitamin With Minerals Tablet PO 1 tab DAILY TAZ Administration Polyethylene Glycol 17 gm 07/09/21 17:08 07/24/21 09:47 Polyethylene Glycol 3350 17 Gm Powd.Pack PO 17 gm DAILY PRN Administration Constipation Psyllium Hydrophilic Mucilloid 3.4 gm 07/10/21 09:00 07/25/21 08:16 Psyllium Seed 3.4 Gm Powd.Pack PO 3.4 gm DAILY TAZ Administration Quetiapine Fumarate 25 mg 07/16/21 10:00 07/22/21 05:38 Quetiapine Fumarate 25 Mg Tablet PO 25 mg Q4H PRN Administration Anxiety Sodium Biphosphate/Sodium Phosphate 133 ml 07/09/21 17:08 Sodium Phosphate,[place]-Dibasic 133 Ml Enema GA ONCE PRN Constipation Trazodone HCl 300 mg 07/13/21 21:00 07/24/21 21:26 Trazodone Hcl 100 Mg Tablet PO 300 mg BEDTIME TAZ Administration Allergies Allergies Allergy/AdvReac Type Severity Reaction Status Date / Time fentanyl [FENTANYL] Allergy Intermediate unknown Verified 05/22/21 11:43 Assessment & Plan Assessment & Plan (1) Major depressive disorder, recurrent severe without psychotic features: Status: Acute Code(s): F33.2 - Major depressive disorder, recurrent severe without psychotic features Assessment and Plan: Continue ECT Rexulti mirtazapine encourage coping strategies ECT in a.m. discussed option for TMS outpatient partial hospital referral (2) Cognitive and neurobehavioral dysfunction following brain injury: Status: Acute Code(s): G31.89 - Other specified degenerative diseases of nervous system; F09 - Unspecified mental disorder due to known physiological condition; S06.9X9S - Unspecified intracranial injury with loss of consciousness of unspecified duration, sequela (3) HTN (hypertension): Status: Acute Code(s): I10 - Essential (primary) hypertension Assessment and Plan: . Rexulti ECT for tomorrow her amlodipine increased to 10 mg daily for hypertension monitor for self-harming behavior Continue ECT monitor response to Rexulti discharge held off patient does not seem stable for discharge Greater than 50% of the session was spent on counseling and/or coordination of care Reason for contiued inpatient stay Substantial Risk for: harm to self and rapid decompensation
[2021-07-25 20:43] VITALS: BP 167/87; PULSE 68; RESP 18; TEMP 36.4; O2SAT 97
[2021-07-25] MEDS: Melatonin 3 MG TABLET 6 MG PO (21:14)
[2021-07-25] MEDS: Mirtazapine 30 MG TABLET PO (21:14)
[2021-07-25] MEDS: traZODone HCL 100 MG TABLET 300 MG PO (21:15)
[2021-07-25] MEDS: Latanoprost 0.005 % Ophth Sol 2.5 ML DROPS 1 DROP EYE-BOTH (21:18)
[2021-07-25] MEDS: Ibuprofen 400 MG TABLET PO (21:53)
[2021-07-26] VITALS (10 sets, daily range): BP systolic 144–257; BP diastolic 74–125; PULSE 63–78; RESP 14–20; TEMP 36.3–36.9; O2SAT 94–98; BMI 29.5
[2021-07-26] MEDS: Ibuprofen 400 MG TABLET PO (04:42)
[2021-07-26] MEDS: amLODIPine Besylate 5 MG TABLET 10 MG PO (04:42)
[2021-07-26] MEDS: lisinopriL 40 MG TABLET PO (04:43)
--- NOTE | 2021-07-26 07:04 | HO.ANESPROP2 ---
[facility], [facility] Active Problems Active Problems: All Active Problems (Updated 05/24/21 @ 23:38 by Addy Haskins MD) Major depressive disorder, recurrent severe without psychotic features (Acute) Cognitive and neurobehavioral dysfunction following brain injury (Acute) HTN (hypertension) (Acute) Past Medical History Medical History Alcohol use disorder, severe, in sustained remission Cognitive and neurobehavioral dysfunction following brain injury Hernia HTN (hypertension) Major depressive disorder, recurrent Major depressive disorder, recurrent severe without psychotic features Functional capacity: independent ambulation Family History Family history of problems with anesthesia: No Surgical History Surgical History H/O brain surgery History of hip replacement S/P cholecystectomy History of Problems with Anesthesia: No Social History Social History Household Members: Caregiver and Other Household Members Other:: Pt [place] [facility] Housing: Other Housing Other:: [facility] Do you presently have visiting nurse or other home services: No Patient Tobacco Use Status: Never used Tobacco Use of substances other than those prescribed or required for medical reasons: No Are you DNR?: No Advance Directives: Yes Advance Directives on File: Yes Advance Directives Date on File: 05/27/19 Recently lost weight without trying: Yes How much weight loss: 2-13 pounds Nutrition Risks: No Nutritional Risk service: No Sexual orientation: Straight/Heterosexual Meds Allergies Allergy/AdvReac Type Severity Reaction Status Date / Time fentanyl [FENTANYL] Allergy Intermediate unknown Verified 05/22/21 11:43 Active Medications: Current Medications Generic Name Dose Route Start Last Admin Trade Name Freq PRN Reason Stop Dose Admin Acetaminophen 650 mg 07/09/21 16:02 07/25/21 08:08 Acetaminophen 325 Mg Tablet PO 650 mg Q6H PRN Administration Headache/Pain Mild Scale (1-3) Al Hydroxide/Mg Hydroxide 30 ml 07/09/21 16:02 Magnesium Hydrox/Alum Hydrox 30 Ml Oral.Susp PO Q6H PRN Heartburn/Nausea Albuterol Sulfate 2 puff 07/09/21 17:08 07/25/21 11:32 Albuterol Sulfate 90 Mcg 8 Gm Inhaler INHALE 2 puff Q6H PRN Administration Shortness of Breath/Wheezing Amlodipine Besylate 10 mg 07/12/21 09:00 07/26/21 04:42 Amlodipine Besylate 5 Mg Tablet PO 10 mg DAILY TAZ Administration Protocol Brexpiprazole 2 mg 07/19/21 09:00 07/25/21 08:09 Brexpiprazole 1 Mg Tablet PO 2 mg DAILY TAZ Administration Dibucaine 1 appl 07/19/21 13:28 07/25/21 21:17 Dibucaine 1 % Oint 28 Gm Tube TOPICAL 1 appl QID PRN Administration Hemorrhoids Protocol Docusate Sodium 100 mg 07/09/21 21:00 07/25/21 21:14 Docusate Sodium 100 Mg Capsule PO 100 mg BID TAZ Administration Escitalopram Oxalate 10 mg 07/10/21 09:00 07/25/21 08:15 Escitalopram Oxalate 10 Mg Tablet PO 10 mg DAILY TAZ Administration Finasteride 5 mg 07/10/21 09:00 07/25/21 10:21 Finasteride 5 Mg Tablet PO 5 mg DAILY TAZ Administration Gabapentin 300 mg 07/09/21 21:00 07/25/21 21:41 Gabapentin 300 Mg Capsule PO Not Given TID TAZ Hydrocortisone 1 appl 07/19/21 14:30 07/25/21 23:11 Hydrocortisone 2.5 % Rectal Cr 30 Gm Tube AR Not Given BID TAZ Ibuprofen 400 mg 07/10/21 13:25 07/26/21 04:42 Ibuprofen 400 Mg Tablet PO 400 mg Q6H PRN Administration Pain, Moderate (Pain Scale 4-6 Lamotrigine 100 mg 07/09/21 21:00 07/25/21 21:41 Lamotrigine 100 Mg Tablet PO Not Given BID TAZ Latanoprost 1 drop 07/09/21 21:00 07/25/21 21:18 Latanoprost 0.005 % Ophth No 2.5 Ml Drops EYE-BOTH 1 drop BEDTIME TAZ Administration Lidocaine 1 patch 07/25/21 11:00 07/25/21 11:58 Lidocaine 4 % Patch Adh..Patch TRANSDERMA 1 patch DAILY TAZ Administration Protocol Lisinopril 40 mg 07/10/21 09:00 07/26/21 04:43 Lisinopril 40 Mg Tablet PO 40 mg DAILY TAZ Administration Protocol Lorazepam 0.5 mg 07/23/21 17:59 07/25/21 08:31 Lorazepam 0.5 Mg Tablet PO 0.5 mg BID PRN Administration anxiety/restlessness Magnesium Hydroxide 30 ml 07/09/21 16:02 07/18/21 14:48 Milk Of Magnesia 30 Ml Oral.Susp PO 30 ml DAILY PRN Administration Constipation Melatonin 6 mg 07/09/21 21:00 07/25/21 21:14 Melatonin 3 Mg Tablet PO 6 mg BEDTIME TAZ Administration Mirtazapine 30 mg 07/09/21 21:00 07/25/21 21:14 Mirtazapine 30 Mg Tablet PO 30 mg BEDTIME TAZ Administration Multivitamins/Minerals 1 tab 07/10/21 09:00 07/25/21 08:09 Multivitamin With Minerals Tablet PO 1 tab DAILY TAZ Administration Polyethylene Glycol 17 gm 07/09/21 17:08 07/24/21 09:47 Polyethylene Glycol 3350 17 Gm Powd.Pack PO 17 gm DAILY PRN Administration Constipation Psyllium Hydrophilic Mucilloid 3.4 gm 07/10/21 09:00 07/25/21 08:16 Psyllium Seed 3.4 Gm Powd.Pack PO 3.4 gm DAILY TAZ Administration Quetiapine Fumarate 25 mg 07/16/21 10:00 07/22/21 05:38 Quetiapine Fumarate 25 Mg Tablet PO 25 mg Q4H PRN Administration Anxiety Sodium Biphosphate/Sodium Phosphate 133 ml 07/09/21 17:08 Sodium Phosphate,[place]-Dibasic 133 Ml Enema [place] ONCE PRN Constipation Trazodone HCl 300 mg 07/13/21 21:00 07/25/21 21:15 Trazodone Hcl 100 Mg Tablet PO 300 mg BEDTIME TAZ Administration Home Medications Medication Instructions Recorded Confirmed Last Taken Type Tylenol 650 mg PO Q6-8H PRN 05/22/21 05/22/21 Unknown History albuterol 90 mcg/actuation aerosol See Rx Instructions .ROUTE .COMPLEX 05/22/21 05/22/21 Unknown History inhaler clotrimazole 1 % topical solution See Rx Instructions .ROUTE 05/22/21 05/22/21 Unknown History .COMPLEX PRN dextromethorphan-guaifenesin 10 10 ml PO Q6-8H PRN 05/22/21 05/22/21 Unknown History mg-200 mg/5 mL oral liquid docusate sodium 100 mg capsule 1 cap PO BID 05/22/21 05/22/21 Unknown History docusate sodium 100 mg capsule See Rx Instructions .ROUTE 05/22/21 05/22/21 Unknown History .COMPLEX PRN finasteride 5 mg tablet 1 tab PO DAILY 05/22/21 05/22/21 Unknown History glycerin 1 drp OPHTHALMIC (EYE) Q1-2H PRN 05/22/21 05/22/21 Unknown History latanoprost 0.005 % eye drops 1 drp OPHTHALMIC (EYE) DAILY 05/22/21 05/22/21 Unknown History magnesium hydroxide 400 mg/5 mL 2,400 mg PO PRN 05/22/21 Unknown History oral suspension (Milk of Magnesia) melatonin 5 mg tablet 5 mg PO BEDTIME 05/22/21 05/22/21 Unknown History rfjusmnsagmh-bvmvbzqq-gckqlh tablet 1 tab PO DAILY 05/22/21 05/22/21 Unknown History polyethylene glycol 3350 17 17 g PO DAILY 05/22/21 05/22/21 Unknown History gram/dose oral powder polyethylene glycol 3350 17 17 g PO DAILY PRN 05/22/21 05/22/21 Unknown History gram/dose oral powder psyllium husk 0.4 gram capsule 0.4 g PO DAILY 05/22/21 05/22/21 Unknown History (Metamucil) sodium phosphates 19 gram-7 118 ml AR DAILY PRN 05/22/21 05/22/21 Unknown History gram/118 mL enema (Fleet Enema) trazodone 150 mg tablet 2 tab PO BEDTIME 05/22/21 05/22/21 Unknown History Exam Exam Date and Time: July 26, 2021 0704 Height,Weight and Vital Signs: Height 6 ft 2 in Weight 105 kg Last Vital Signs Temp 97.9 F 07/26/21 05:55 Pulse 63 07/26/21 05:55 Resp 18 07/26/21 05:55 BP 162/85 H 07/26/21 05:55 Pulse Ox 96 07/26/21 05:55 Pertinent Lab Results Pertinent Lab Results: Laboratory Tests 07/09/21 07/09/21 07/09/21 14:02 14:05 14:05 WBC 6.3 RBC 4.32 L Hgb 14.3 Hct 42.7 MCV 98.8 H MCH 33.1 H MCHC 33.5 RDW 11.8 Plt Count 195 MPV 10.2 Immature Gran % (Auto) 0.8 H Neut % (Auto) 58.9 Lymph % (Auto) 28.6 [place] % (Auto) 7.8 Eos % (Auto) 3.6 Baso % (Auto) 0.3 Lymph # (Auto) 1.8 [place] # (Auto) 0.5 Eos # (Auto) 0.2 Baso # (Auto) 0.0 Abs Immat Gran (auto) 0.05 H Absolute Neuts (auto) 3.7 Absolute Nucleated RBC 0.000 Nucleated RBC % (auto) 0.0 Sodium 141 Potassium 4.2 Chloride 107 Carbon Dioxide 24 Anion Gap 14 BUN 19 H Creatinine 0.85 Estim Creat Clear Calc Not Reportable Estimated GFR > 60 Random Glucose 73 Calcium 9.7 Total Bilirubin 0.7 AST 29 ALT 46 H Alkaline Phosphatase 68 D Total Protein 7.2 Albumin 4.7 COVID-19 (RACHEL) Negative COVID-19 Clin Com See Note Airway Mallampati Class: III TM Dist: >3cm Neck ROM: Full Heart: rrr Lungs: cta Assessment and Plan Assessment Anesthesia Assessment: Anesthesia Plan Discussed and Chart Reviewed Final Anesthetic Review Family History of Problems with Anesthesia: No History of Problems with Anesthesia: No NPO: Yes ASA Class: III Final Preanesthetic Review: No Changes in Pt Med Stat, Meds/Allgs Chart Reviewed and Consent Obtained/Reviewed Patient Risk: Intermediate Procedure Risk: Intermediate Anesthetic Plan Anesthetic Plan: GA Disposition: Standard PACU
--- NOTE | 2021-07-26 08:09 | MHC.SHP ---
Pre-Procedural Eval Section A Date of Service: 07/26/21 The patient is an INPATIENT: Yes Changes since office visit: Yes Changes in Medication and Yes Patient answered all questions; No Cold of Flu in the past 2 weeks and No New Medical Problems The History & Physical has been completed within 30 days and I have reviewed it.: Yes Section B Chief Complaint: Depression SI Allergies: Allergies Allergy/AdvReac Type Severity Reaction Status Date / Time fentanyl [FENTANYL] Allergy Intermediate unknown Verified 05/22/21 11:43 Plan I have reviewed the history and physical and performed a pertinent physical examination on my patient. No changes have occurred unless specified.
--- NOTE | 2021-07-26 08:45 | HO.ECTPROC ---
ECT Procedure Note Diagnosis/Treatment Date of Service: 07/26/21 Diagnosis: Major Depressive Disorder Previous ECT Date: 07/24/21 Current Treatment Number: 14 Treatment: Other (continuation) Interval Clinical Notes: pt showing some improvement ECT Settings Device: THYMATRON DGx Electrode Placement: Bifrontal Program/Pulse Width: 0.50 Energy Percent: 100 Medications Administration General Anesthetic: Etomidate (16 plus 20 propofol) Muscle Relaxant: Succinylcholine (100) Ancillary Medications Cardiovascular Medications: Labetolol (20 mg) Airway Management Airway Management: Bag Mask Ventilation Treatment Recommendations Electrode Placement: Bifrontal Program/Pulse Width: 0.50 Notes: unclear if pt had sz antiepileptic was held nite prior no sz on eeg noted was stimulated first
[2021-07-26] MEDS: lamoTRIgine 100 MG TABLET PO ×2 (09:47→21:38)
[2021-07-26] MEDS: Brexpiprazole 1 MG TABLET 2 MG PO (09:47)
[2021-07-26] MEDS: Finasteride 5 MG TABLET PO (09:47)
[2021-07-26] MEDS: Gabapentin 300 MG CAPSULE PO ×2 (09:48→14:38)
[2021-07-26] MEDS: Docusate Sodium 100 MG CAPSULE PO ×2 (09:48→21:38)
[2021-07-26] MEDS: Escitalopram Oxalate 10 MG TABLET PO (09:48)
[2021-07-26] MEDS: Lidocaine 4 % Patch ADH..PATCH 1 PATCH TRANSDERMA (10:35)
--- NOTE | 2021-07-26 15:05 | MHC.CLN ---
F/U CONTINUES WITH STAGE II PRESSURE AREA TO COCCYX. WEIGHT OVERALL STABLE. STAFF REPORTS THAT PATIENT IS EATING WELL. RD TO FOLLOW WEEKLY.
[2021-07-26] MEDS: Acetaminophen 325 MG TABLET 650 MG PO ×2 (15:39→22:01)
[2021-07-26] MEDS: traZODone HCL 100 MG TABLET 300 MG PO (21:38)
[2021-07-26] MEDS: Mirtazapine 30 MG TABLET PO (21:38)
[2021-07-26] MEDS: Melatonin 3 MG TABLET 6 MG PO (21:38)
[2021-07-26] MEDS: Hydrocortisone 2.5 % Rectal Cr 30 GM TUBE 1 APPL PR (21:39)
[2021-07-26] MEDS: Latanoprost 0.005 % Ophth Sol 2.5 ML DROPS 1 DROP EYE-BOTH (21:39)
[2021-07-26] MEDS: LORazepam 0.5 MG TABLET PO (22:01)
--- NOTE | 2021-07-26 22:05 | P.PNPSI_ITS ---
Subjective Subjective Date of Service: 07/26/21 Reason For Visit: Depression SI Subjective Notes: Conditional Voluntary Guardianship: No Medical Problems Affecting Mental Status: Yes Interim History: Patient can be quite irritable reactive ECT unclear was stimulated 100% by frontally no clear EEG response unclear if sz Mental Status Exam Mental Status Exam Narrative: Appearance: casually groomed, Behavior:cooperative psychomotor: no agitation or retardation noted Speech:clear, normal rate/rhythm, spontaneous Thought process:linear Thought content:no signs of psychosis, future oriented in that has hope that tx will help mood ST ongoing Mood depressed Affect: does brightens at times reactive irritable SI: intermittent thoughts better off HI:none VH/AH:none Delusions:none Insight/judgment:fair x 2. Memory/cog: alert, oriented x 3. not formally tested. Diagnostics Vital Signs (24Hr): Vital Signs - 24 hr 07/26/21 04:42 07/26/21 04:43 07/26/21 05:54 Temperature 97.9 F Pulse Rate 68 68 63 Respiratory Rate 18 Blood Pressure 144/74 H 144/74 H 162/85 H Pulse Oximetry 96 07/26/21 05:55 07/26/21 07:02 07/26/21 08:31 Temperature 97.9 F 97.6 F 98.4 F Pulse Rate 63 72 72 Respiratory Rate 18 20 19 Blood Pressure 162/85 H 192/85 H 257/125 H Pulse Oximetry 96 98 95 07/26/21 08:36 07/26/21 08:41 07/26/21 08:46 Temperature Pulse Rate 78 72 71 Respiratory Rate 20 14 19 Blood Pressure 206/86 H 160/90 H 164/90 H Pulse Oximetry 95 96 94 07/26/21 18:00 Temperature 97.4 F Pulse Rate 66 Respiratory Rate 18 Blood Pressure 146/76 H Pulse Oximetry 95 Body Mass Index 29.5 Labs Results: 07/09/21 14:05 07/09/21 14:05 Medications Medications Current Medications Generic Name Dose Route Start Last Admin Trade Name Freq PRN Reason Stop Dose Admin Acetaminophen 650 mg 07/09/21 16:02 07/26/21 22:01 Acetaminophen 325 Mg Tablet PO 650 mg Q6H PRN Administration Headache/Pain Mild Scale (1-3) Al Hydroxide/Mg Hydroxide 30 ml 07/09/21 16:02 Magnesium Hydrox/Alum Hydrox 30 Ml Oral.Susp PO Q6H PRN Heartburn/Nausea Albuterol Sulfate 2 puff 07/09/21 17:08 07/25/21 11:32 Albuterol Sulfate 90 Mcg 8 Gm Inhaler INHALE 2 puff Q6H PRN Administration Shortness of Breath/Wheezing Amlodipine Besylate 10 mg 07/12/21 09:00 07/26/21 04:42 Amlodipine Besylate 5 Mg Tablet PO 10 mg DAILY TAZ Administration Protocol Brexpiprazole 2 mg 07/19/21 09:00 07/26/21 09:47 Brexpiprazole 1 Mg Tablet PO 2 mg DAILY TAZ Administration Dibucaine 1 appl 07/19/21 13:28 07/25/21 21:17 Dibucaine 1 % Oint 28 Gm Tube TOPICAL 1 appl QID PRN Administration Hemorrhoids Protocol Docusate Sodium 100 mg 07/09/21 21:00 07/26/21 21:38 Docusate Sodium 100 Mg Capsule PO 100 mg BID TAZ Administration Escitalopram Oxalate 10 mg 07/10/21 09:00 07/26/21 09:48 Escitalopram Oxalate 10 Mg Tablet PO 10 mg DAILY TAZ Administration Finasteride 5 mg 07/10/21 09:00 07/26/21 09:47 Finasteride 5 Mg Tablet PO 5 mg DAILY TAZ Administration Gabapentin 400 mg 07/27/21 09:00 Gabapentin 400 Mg Capsule PO TID TAZ Hydrocortisone 1 appl 07/19/21 14:30 07/26/21 21:39 Hydrocortisone 2.5 % Rectal Cr 30 Gm Tube [place] 1 appl BID TAZ Administration Ibuprofen 400 mg 07/10/21 13:25 07/26/21 04:42 Ibuprofen 400 Mg Tablet PO 400 mg Q6H PRN Administration Pain, Moderate (Pain Scale 4-6 Latanoprost 1 drop 07/09/21 21:00 07/26/21 21:39 Latanoprost 0.005 % Ophth No 2.5 Ml Drops EYE-BOTH 1 drop BEDTIME TAZ Administration Lidocaine 1 patch 07/25/21 11:00 07/26/21 10:35 Lidocaine 4 % Patch Adh..Patch TRANSDERMA 1 patch DAILY TAZ Administration Protocol Lisinopril 40 mg 07/10/21 09:00 07/26/21 04:43 Lisinopril 40 Mg Tablet PO 40 mg DAILY TAZ Administration Protocol Lorazepam 0.5 mg 07/23/21 17:59 07/26/21 22:01 Lorazepam 0.5 Mg Tablet PO 0.5 mg BID PRN Administration anxiety/restlessness Magnesium Hydroxide 30 ml 07/09/21 16:02 07/18/21 14:48 Milk Of Magnesia 30 Ml Oral.Susp PO 30 ml DAILY PRN Administration Constipation Melatonin 6 mg 07/09/21 21:00 07/26/21 21:38 Melatonin 3 Mg Tablet PO 6 mg BEDTIME TAZ Administration Mirtazapine 30 mg 07/09/21 21:00 07/26/21 21:38 Mirtazapine 30 Mg Tablet PO 30 mg BEDTIME TAZ Administration Multivitamins/Minerals 1 tab 07/10/21 09:00 07/26/21 09:48 Multivitamin With Minerals Tablet PO 1 tab DAILY TAZ Administration Polyethylene Glycol 17 gm 07/09/21 17:08 07/24/21 09:47 Polyethylene Glycol 3350 17 Gm Powd.Pack PO 17 gm DAILY PRN Administration Constipation Psyllium Hydrophilic Mucilloid 3.4 gm 07/10/21 09:00 07/26/21 09:53 Psyllium Seed 3.4 Gm Powd.Pack PO 3.4 gm DAILY TAZ Administration Quetiapine Fumarate 25 mg 07/16/21 10:00 07/22/21 05:38 Quetiapine Fumarate 25 Mg Tablet PO 25 mg Q4H PRN Administration Anxiety Sodium Biphosphate/Sodium Phosphate 133 ml 07/09/21 17:08 Sodium Phosphate,[place]-Dibasic 133 Ml Enema [place] ONCE PRN Constipation Trazodone HCl 300 mg 07/13/21 21:00 07/26/21 21:38 Trazodone Hcl 100 Mg Tablet PO 300 mg BEDTIME TAZ Administration Allergies Allergies Allergy/AdvReac Type Severity Reaction Status Date / Time fentanyl [FENTANYL] Allergy Intermediate unknown Verified 05/22/21 11:43 Assessment & Plan Assessment & Plan (1) Major depressive disorder, recurrent severe without psychotic features: Status: Acute Code(s): F33.2 - Major depressive disorder, recurrent severe without psychotic features Assessment and Plan: Continue Rexulti mirtazapine encourage coping strategies discussed option for TMS outpatient partial hospital referral (2) Cognitive and neurobehavioral dysfunction following brain injury: Status: Acute Code(s): G31.89 - Other specified degenerative diseases of nervous system; F09 - Unspecified mental disorder due to known physiological condition; S06.9X9S - Unspecified intracranial injury with loss of consciousness of unspecified duration, sequela (3) HTN (hypertension): Status: Acute Code(s): I10 - Essential (primary) hypertension Assessment and Plan: . Rexulti ECT for tomorrow her amlodipine increased to 10 mg daily for hypertension monitor for self-harming behavior Continue ECT monitor response to Rexulti discharge held off patient does not seem stable for discharge Greater than 50% of the session was spent on counseling and/or coordination of care Reason for contiued inpatient stay Substantial Risk for: harm to self, inability to function and rapid decompensation
[2021-07-27] MEDS: Acetaminophen 325 MG TABLET 650 MG PO (08:00)
[2021-07-27] MEDS: Docusate Sodium 100 MG CAPSULE PO ×2 (08:21→21:59)
[2021-07-27] MEDS: Brexpiprazole 1 MG TABLET 2 MG PO (08:22)
[2021-07-27] MEDS: lamoTRIgine 25 MG TABLET 125 MG PO ×2 (08:22→21:59)
[2021-07-27] MEDS: Gabapentin 400 MG CAPSULE PO ×3 (08:23→21:58)
[2021-07-27] MEDS: Escitalopram Oxalate 10 MG TABLET PO (08:23)
[2021-07-27 08:30] VITALS: BP 156/75; PULSE 75
[2021-07-27] MEDS: Finasteride 5 MG TABLET PO (08:30)
[2021-07-27] MEDS: lisinopriL 40 MG TABLET PO (08:30)
[2021-07-27 08:31] VITALS: BP 156/75; PULSE 75
[2021-07-27] MEDS: amLODIPine Besylate 5 MG TABLET 10 MG PO (08:31)
[2021-07-27 08:38] VITALS: BP 156/75; PULSE 75; RESP 16; TEMP 36.7; O2SAT 97
[2021-07-27] MEDS: Hydrocortisone 2.5 % Rectal Cr 30 GM TUBE 1 APPL PR ×2 (12:49→22:03)
[2021-07-27] MEDS: LORazepam 0.5 MG TABLET PO ×2 (13:06→22:06)
--- NOTE | 2021-07-27 13:27 | HO.PSYCHPN ---
Subjective Subjective Date of Service: 07/27/21 Reason For Visit: Depression SI Interim History: Patient remains anxious and ambivalent about possible DC plans back to residential. I have anxiety and angst. I am ambivalent about his living arrangements. Had 14 ECT's. No clear response he says. No SI. No HI. Denies psychotic symptoms. Medication Compliance: Yes Review of Systems Review of Systems back pain groin rash Yes all other systems are reviewed and are negative Constitutional: Reports as per HPI, Denies chills and Denies fever(s) Cardiovascular: Denies chest pain Respiratory: Denies cough Gastrointestinal: Denies abdominal pain Mental Status Exam Mental Status Exam Narrative: Appearance: casually groomed, Behavior:cooperative psychomotor: no agitation or retardation noted Speech:clear, normal rate/rhythm, spontaneous Thought process:linear Thought content:no signs of psychosis, future oriented in that has hope that tx will help mood ST ongoing Mood depressed Affect: does brightens at times reactive irritable SI: intermittent thoughts better off HI:none VH/AH:none Delusions:none Insight/judgment:fair x 2. Memory/cog: alert, oriented x 3. not formally tested. Patient Appearance: Well Grooomed Patient Orientation: Person, Place, Time and Situation Level of Consciousness: Awake Patient Behavior: Appropriate Mood Description: Depressed Affect Description: Constricted Patient Cognition Impaired: No Ability to Follow Directions: Good Speech Pattern: Clear Diagnostics Vital Signs (24Hr): Vital Signs - 24 hr 07/26/21 18:00 07/27/21 08:30 07/27/21 08:31 Temperature 97.4 F Pulse Rate 66 75 75 Respiratory Rate 18 Blood Pressure 146/76 H 156/75 H 156/75 H Pulse Oximetry 95 07/27/21 08:38 Temperature 98.1 F Pulse Rate 75 Respiratory Rate 16 Blood Pressure 156/75 H Pulse Oximetry 97 Body Mass Index 29.5 Labs Results: 07/09/21 14:05 07/09/21 14:05 Medications Medications Current Medications Generic Name Dose Route Start Last Admin Trade Name Freq PRN Reason Stop Dose Admin Acetaminophen 650 mg 07/09/21 16:02 07/27/21 08:00 Acetaminophen 325 Mg Tablet PO 650 mg Q6H PRN Administration Headache/Pain Mild Scale (1-3) Al Hydroxide/Mg Hydroxide 30 ml 07/09/21 16:02 Magnesium Hydrox/Alum Hydrox 30 Ml Oral.Susp PO Q6H PRN Heartburn/Nausea Albuterol Sulfate 2 puff 07/09/21 17:08 07/25/21 11:32 Albuterol Sulfate 90 Mcg 8 Gm Inhaler INHALE 2 puff Q6H PRN Administration Shortness of Breath/Wheezing Amlodipine Besylate 10 mg 07/12/21 09:00 07/27/21 08:31 Amlodipine Besylate 5 Mg Tablet PO 10 mg DAILY TAZ Administration Protocol Brexpiprazole 2 mg 07/19/21 09:00 07/27/21 08:22 Brexpiprazole 1 Mg Tablet PO 2 mg DAILY TAZ Administration Dibucaine 1 appl 07/19/21 13:28 07/25/21 21:17 Dibucaine 1 % Oint 28 Gm Tube TOPICAL 1 appl QID PRN Administration Hemorrhoids Protocol Docusate Sodium 100 mg 07/09/21 21:00 07/27/21 08:21 Docusate Sodium 100 Mg Capsule PO 100 mg BID TAZ Administration Escitalopram Oxalate 10 mg 07/10/21 09:00 07/27/21 08:23 Escitalopram Oxalate 10 Mg Tablet PO 10 mg DAILY TAZ Administration Finasteride 5 mg 07/10/21 09:00 07/27/21 08:30 Finasteride 5 Mg Tablet PO 5 mg DAILY TAZ Administration Gabapentin 400 mg 07/27/21 09:00 07/27/21 08:23 Gabapentin 400 Mg Capsule PO 400 mg TID TAZ Administration Hydrocortisone 1 appl 07/19/21 14:30 07/27/21 12:49 Hydrocortisone 2.5 % Rectal Cr [address] 1 appl BID TAZ Administration Ibuprofen 400 mg 07/10/21 13:25 07/26/21 04:42 Ibuprofen 400 Mg Tablet PO 400 mg Q6H PRN Administration Pain, Moderate (Pain Scale 4-6 Lamotrigine 125 mg 07/27/21 09:00 07/27/21 08:22 Lamotrigine 25 Mg Tablet PO 125 mg BID TAZ Administration Latanoprost 1 drop 07/09/21 21:00 07/26/21 21:39 Latanoprost 0.005 % Ophth No 2.5 Ml Drops EYE-BOTH 1 drop BEDTIME TAZ Administration Lidocaine 1 patch 07/25/21 11:00 07/26/21 10:35 Lidocaine 4 % Patch Adh..Patch TRANSDERMA 1 patch DAILY TAZ Administration Protocol Lisinopril 40 mg 07/10/21 09:00 07/27/21 08:30 Lisinopril 40 Mg Tablet PO 40 mg DAILY TAZ Administration Protocol Lorazepam 0.5 mg 07/23/21 17:59 07/27/21 13:06 Lorazepam 0.5 Mg Tablet PO 0.5 mg BID PRN Administration anxiety/restlessness Magnesium Hydroxide 30 ml 07/09/21 16:02 07/18/21 14:48 Milk Of Magnesia 30 Ml Oral.Susp PO 30 ml DAILY PRN Administration Constipation Melatonin 6 mg 07/09/21 21:00 07/26/21 21:38 Melatonin 3 Mg Tablet PO 6 mg BEDTIME TAZ Administration Mirtazapine 30 mg 07/09/21 21:00 07/26/21 21:38 Mirtazapine 30 Mg Tablet PO 30 mg BEDTIME TAZ Administration Multivitamins/Minerals 1 tab 07/10/21 09:00 07/27/21 08:21 Multivitamin With Minerals Tablet PO 1 tab DAILY TAZ Administration Polyethylene Glycol 17 gm 07/09/21 17:08 07/24/21 09:47 Polyethylene Glycol 3350 17 Gm Powd.Pack PO 17 gm DAILY PRN Administration Constipation Psyllium Hydrophilic Mucilloid 3.4 gm 07/10/21 09:00 07/27/21 08:32 Psyllium Seed 3.4 Gm Powd.Pack PO 3.4 gm DAILY TAZ Administration Quetiapine Fumarate 25 mg 07/16/21 10:00 07/22/21 05:38 Quetiapine Fumarate 25 Mg Tablet PO 25 mg Q4H PRN Administration Anxiety Sodium Biphosphate/Sodium Phosphate 133 ml 07/09/21 17:08 Sodium Phosphate,[place]-Dibasic [address] ONCE PRN Constipation Trazodone HCl 300 mg 07/13/21 21:00 07/26/21 21:38 Trazodone Hcl 100 Mg Tablet PO 300 mg BEDTIME TAZ Administration Allergies Allergies Allergy/AdvReac Type Severity Reaction Status Date / Time fentanyl [FENTANYL] Allergy Intermediate unknown Verified 05/22/21 11:43 Assessment & Plan Assessment & Plan (1) Major depressive disorder, recurrent severe without psychotic features: Status: Acute Code(s): F33.2 - Major depressive disorder, recurrent severe without psychotic features Assessment and Plan: Continue Rexulti mirtazapine encourage coping strategies discussed option for TMS outpatient partial hospital referral Dependent character traits may be difficult to break through. (2) Cognitive and neurobehavioral dysfunction following brain injury: Status: Acute Code(s): G31.89 - Other specified degenerative diseases of nervous system; F09 - Unspecified mental disorder due to known physiological condition; S06.9X9S - Unspecified intracranial injury with loss of consciousness of unspecified duration, sequela (3) HTN (hypertension): Status: Acute Code(s): I10 - Essential (primary) hypertension Assessment and Plan: . Rexulti ECT for tomorrow her amlodipine increased to 10 mg daily for hypertension monitor for self-harming behavior Continue ECT monitor response to Rexulti discharge held off patient does not seem stable for discharge Greater than 50% of the session was spent on counseling and/or coordination of care Reason for contiued inpatient stay Substantial Risk for: harm to self and rapid decompensation
[2021-07-27] MEDS: Milk of Magnesia 30 ML ORAL.SUSP PO (14:46)
--- NOTE | 2021-07-27 15:12 | HO.POSTANES ---
Post Anesthesia Evaluation Post Anesthesia Evaluation Vital Signs: Vital Signs Temp Pulse Resp BP Pulse Ox 07/27/21 08:38 98.1 F 75 16 156/75 H 97 07/27/21 08:31 75 156/75 H 07/27/21 08:30 75 156/75 H Anesthesia: General Mental Status: Awake Pain Control: Satisfactory Nausea/Vomiting: None Hydration: Adequate Anesthesia-Related Issues: No Anes. Related Issues
[2021-07-27 18:00] VITALS: BP 153/78; PULSE 75; RESP 20; TEMP 36.6; O2SAT 97
[2021-07-27] MEDS: traZODone HCL 100 MG TABLET 300 MG PO (21:58)
[2021-07-27] MEDS: Mirtazapine 30 MG TABLET PO (21:58)
[2021-07-27] MEDS: Melatonin 3 MG TABLET 6 MG PO (21:58)
[2021-07-27] MEDS: Latanoprost 0.005 % Ophth Sol 2.5 ML DROPS 1 DROP EYE-BOTH (22:00)
[2021-07-28 08:35] VITALS: BP 150/71; PULSE 65; RESP 18; TEMP 36.7; O2SAT 99
[2021-07-28 08:37] VITALS: BP 150/71; PULSE 65
[2021-07-28] MEDS: Albuterol Sulfate 90 MCG 8 GM INHALER 2 PUFF INHALE (08:37)
[2021-07-28] MEDS: amLODIPine Besylate 5 MG TABLET 10 MG PO (08:37)
[2021-07-28] MEDS: lamoTRIgine 25 MG TABLET 125 MG PO ×2 (08:38→21:22)
[2021-07-28] MEDS: Brexpiprazole 1 MG TABLET 2 MG PO (08:38)
[2021-07-28] MEDS: Finasteride 5 MG TABLET PO (08:38)
[2021-07-28] MEDS: Docusate Sodium 100 MG CAPSULE PO ×2 (08:38→21:22)
[2021-07-28] MEDS: Escitalopram Oxalate 10 MG TABLET PO (08:38)
[2021-07-28 08:39] VITALS: BP 150/71; PULSE 65
[2021-07-28] MEDS: Ibuprofen 400 MG TABLET PO (08:39)
[2021-07-28] MEDS: Gabapentin 400 MG CAPSULE PO ×3 (08:39→21:22)
[2021-07-28] MEDS: lisinopriL 40 MG TABLET PO (08:39)
[2021-07-28] MEDS: polyethylene glycoL 3350 17 GM POWD.PACK PO (08:40)
--- NOTE | 2021-07-28 08:54 | PC.NURSE ---
Patient is greeted in the morning. He is lying in bed, not making eye-contact. When asked how he is feeling he replies, Not good. When asked to elaborate Patient reports he feels depressed and has the chills. Vital signs are assessed and found to be within normal limits. Medications are prepared and patient is encouraged to sit up higher to take medications. Patient refuses. Pt. takes medication cup and water and tosses all medications into mouth at once and then drinks water quickly. He then begins to cough very hard. Patient continues coughing spitting out a pill, believed to be Ibuprofen onto the floor. Patient is placed in high fowlers position and encouraged to continue coughing. Patient states to this program writer, You put too many medications into the cup. Patient has been taking the same amount of medications each day since admission. Patient asks for head of bed to be put back down, he is told he needs to sit up for 15- 20 minutes due to aspiration risk.
[2021-07-28] MEDS: LORazepam 0.5 MG TABLET PO (13:16)
--- NOTE | 2021-07-28 17:24 | HO.PSYCHPN ---
Subjective Subjective Date of Service: 07/28/21 Reason For Visit: Depression SI Interim History: I'm filled with anxiety and depression today. It is clearly related to his planned DC to his previous living situation. He had 14 ECT's. No clear response he says. No SI. No HI. Denies psychotic symptoms. Review of Systems Review of Systems back pain groin rash Yes all other systems are reviewed and are negative Constitutional: Reports as per HPI, Denies chills and Denies fever(s) Cardiovascular: Denies chest pain Respiratory: Denies cough Gastrointestinal: Denies abdominal pain Mental Status Exam Mental Status Exam Narrative: Appearance: casually groomed, Behavior:cooperative psychomotor: no agitation or retardation noted Speech:clear, normal rate/rhythm, spontaneous Thought process:linear Thought content:no signs of psychosis, future oriented in that has hope that tx will help mood ST ongoing Mood depressed Affect: does brightens at times reactive irritable SI: intermittent thoughts better off HI:none VH/AH:none Delusions:none Insight/judgment:fair x 2. Memory/cog: alert, oriented x 3. not formally tested. Patient Appearance: Well Grooomed Patient Orientation: Person, Place, Time and Situation Level of Consciousness: Awake Patient Behavior: Appropriate Mood Description: Depressed Affect Description: Constricted Patient Cognition Impaired: No Ability to Follow Directions: Good Speech Pattern: Clear Diagnostics Vital Signs (24Hr): Vital Signs - 24 hr 07/27/21 18:00 07/28/21 08:35 07/28/21 08:37 Temperature 98 F 98.1 F Pulse Rate 75 65 65 Respiratory Rate 20 18 Blood Pressure 153/78 H 150/71 H 150/71 H Pulse Oximetry 97 99 07/28/21 08:39 Temperature Pulse Rate 65 Respiratory Rate Blood Pressure 150/71 H Pulse Oximetry Body Mass Index 29.5 Labs Results: 07/09/21 14:05 07/09/21 14:05 Medications Medications Current Medications Generic Name Dose Route Start Last Admin Trade Name Freq PRN Reason Stop Dose Admin Acetaminophen 650 mg 07/09/21 16:02 07/27/21 08:00 Acetaminophen 325 Mg Tablet PO 650 mg Q6H PRN Administration Headache/Pain Mild Scale (1-3) Al Hydroxide/Mg Hydroxide 30 ml 07/09/21 16:02 Magnesium Hydrox/Alum Hydrox 30 Ml Oral.Susp PO Q6H PRN Heartburn/Nausea Albuterol Sulfate 2 puff 07/09/21 17:08 07/28/21 08:37 Albuterol Sulfate 90 Mcg 8 Gm Inhaler INHALE 2 puff Q6H PRN Administration Shortness of Breath/Wheezing Amlodipine Besylate 10 mg 07/12/21 09:00 07/28/21 08:37 Amlodipine Besylate 5 Mg Tablet PO 10 mg DAILY TAZ Administration Protocol Brexpiprazole 2 mg 07/19/21 09:00 07/28/21 08:38 Brexpiprazole 1 Mg Tablet PO 2 mg DAILY TAZ Administration Dibucaine 1 appl 07/19/21 13:28 07/25/21 21:17 Dibucaine 1 % Oint 28 Gm Tube TOPICAL 1 appl QID PRN Administration Hemorrhoids Protocol Docusate Sodium 100 mg 07/09/21 21:00 07/28/21 08:38 Docusate Sodium 100 Mg Capsule PO 100 mg BID TAZ Administration Escitalopram Oxalate 10 mg 07/10/21 09:00 07/28/21 08:38 Escitalopram Oxalate 10 Mg Tablet PO 10 mg DAILY TAZ Administration Finasteride 5 mg 07/10/21 09:00 07/28/21 08:38 Finasteride 5 Mg Tablet PO 5 mg DAILY TAZ Administration Gabapentin 400 mg 07/27/21 09:00 07/28/21 14:53 Gabapentin 400 Mg Capsule PO 400 mg TID TAZ Administration Hydrocortisone 1 appl 07/19/21 14:30 07/28/21 13:14 Hydrocortisone 2.5 % Rectal Cr 30 Gm Tube [place] Not Given BID [facility] Ibuprofen 400 mg 07/10/21 13:25 07/28/21 08:39 Ibuprofen 400 Mg Tablet PO 400 mg Q6H PRN Administration Pain, Moderate (Pain Scale 4-6 Lamotrigine 125 mg 07/27/21 09:00 07/28/21 08:38 Lamotrigine 25 Mg Tablet PO 125 mg BID TAZ Administration Latanoprost 1 drop 07/09/21 21:00 07/27/21 22:00 Latanoprost 0.005 % Ophth No 2.5 Ml Drops EYE-BOTH 1 drop BEDTIME TAZ Administration Lidocaine 1 patch 07/25/21 11:00 07/28/21 13:14 Lidocaine 4 % Patch Adh..Patch TRANSDERMA Not Given DAILY [facility] Protocol Lisinopril 40 mg 07/10/21 09:00 07/28/21 08:39 Lisinopril 40 Mg Tablet PO 40 mg DAILY TAZ Administration Protocol Lorazepam 0.5 mg 07/23/21 17:59 07/28/21 13:16 Lorazepam 0.5 Mg Tablet PO 0.5 mg BID PRN Administration anxiety/restlessness Magnesium Hydroxide 30 ml 07/09/21 16:02 07/27/21 14:46 Milk Of Magnesia 30 Ml Oral.Susp PO 30 ml DAILY PRN Administration Constipation Melatonin 6 mg 07/09/21 21:00 07/27/21 21:58 Melatonin 3 Mg Tablet PO 6 mg BEDTIME TAZ Administration Mirtazapine 30 mg 07/09/21 21:00 07/27/21 21:58 Mirtazapine 30 Mg Tablet PO 30 mg BEDTIME TAZ Administration Multivitamins/Minerals 1 tab 07/10/21 09:00 07/28/21 08:38 Multivitamin With Minerals Tablet PO 1 tab DAILY TAZ Administration Polyethylene Glycol 17 gm 07/09/21 17:08 07/28/21 08:40 Polyethylene Glycol 3350 17 Gm Powd.Pack PO 17 gm DAILY PRN Administration Constipation Psyllium Hydrophilic Mucilloid 3.4 gm 07/10/21 09:00 07/28/21 08:40 Psyllium Seed 3.4 Gm Powd.Pack PO 3.4 gm DAILY TAZ Administration Quetiapine Fumarate 25 mg 07/16/21 10:00 07/22/21 05:38 Quetiapine Fumarate 25 Mg Tablet PO 25 mg Q4H PRN Administration Anxiety Sodium Biphosphate/Sodium Phosphate 133 ml 07/09/21 17:08 Sodium Phosphate,[place]-Dibasic 133 Ml Enema [place] ONCE PRN Constipation Trazodone HCl 300 mg 07/13/21 21:00 07/27/21 21:58 Trazodone Hcl 100 Mg Tablet PO 300 mg BEDTIME TAZ Administration Allergies Allergies Allergy/AdvReac Type Severity Reaction Status Date / Time fentanyl [FENTANYL] Allergy Intermediate unknown Verified 05/22/21 11:43 Assessment & Plan Assessment & Plan (1) Major depressive disorder, recurrent severe without psychotic features: Status: Acute Code(s): F33.2 - Major depressive disorder, recurrent severe without psychotic features Assessment and Plan: Continue Rexulti mirtazapine encourage coping strategies discussed option for TMS outpatient partial hospital referral Dependent character traits may be difficult to break through. (2) Cognitive and neurobehavioral dysfunction following brain injury: Status: Acute Code(s): G31.89 - Other specified degenerative diseases of nervous system; F09 - Unspecified mental disorder due to known physiological condition; S06.9X9S - Unspecified intracranial injury with loss of consciousness of unspecified duration, sequela (3) HTN (hypertension): Status: Acute Code(s): I10 - Essential (primary) hypertension Assessment and Plan: . Rexulti ECT for tomorrow her amlodipine increased to 10 mg daily for hypertension monitor for self-harming behavior Continue ECT monitor response to Rexulti discharge held off patient does not seem stable for discharge Greater than 50% of the session was spent on counseling and/or coordination of care Reason for contiued inpatient stay Substantial Risk for: harm to self and inability to function
[2021-07-28 18:00] VITALS: BP 158/78; PULSE 73; RESP 18; TEMP 36.7; O2SAT 98
[2021-07-28] MEDS: Mirtazapine 30 MG TABLET PO (21:22)
[2021-07-28] MEDS: traZODone HCL 100 MG TABLET 300 MG PO (21:22)
[2021-07-28] MEDS: Melatonin 3 MG TABLET 6 MG PO (21:22)
[2021-07-28] MEDS: Hydrocortisone 2.5 % Rectal Cr 30 GM TUBE 1 APPL PR (21:23)
[2021-07-28] MEDS: Latanoprost 0.005 % Ophth Sol 2.5 ML DROPS 1 DROP EYE-BOTH (21:23)
[2021-07-28] MEDS: QUEtiapine Fumarate 25 MG TABLET PO (21:43)
[2021-07-29] MEDS: Ibuprofen 400 MG TABLET PO ×3 (04:46→22:35)
[2021-07-29] MEDS: QUEtiapine Fumarate 25 MG TABLET PO ×2 (05:03→16:24)
[2021-07-29 08:30] VITALS: BP 172/82; PULSE 60; RESP 16; TEMP 36.6; O2SAT 97
[2021-07-29 09:25] VITALS: BP 172/82; PULSE 60
[2021-07-29] MEDS: amLODIPine Besylate 5 MG TABLET 10 MG PO (09:25)
[2021-07-29] MEDS: Docusate Sodium 100 MG CAPSULE PO ×2 (09:27→22:15)
[2021-07-29 09:28] VITALS: BP 172/82; PULSE 60
[2021-07-29] MEDS: lisinopriL 40 MG TABLET PO (09:28)
[2021-07-29] MEDS: Gabapentin 400 MG CAPSULE PO ×3 (09:30→22:15)
[2021-07-29] MEDS: Escitalopram Oxalate 10 MG TABLET PO (09:30)
[2021-07-29] MEDS: Brexpiprazole 1 MG TABLET 2 MG PO (09:32)
[2021-07-29] MEDS: lamoTRIgine 25 MG TABLET 125 MG PO (09:34)
[2021-07-29] MEDS: Finasteride 5 MG TABLET PO (09:40)
--- NOTE | 2021-07-29 20:44 | HO.PSYCHPN ---
Subjective Subjective Date of Service: 07/29/21 Reason For Visit: Depression SI Subjective Notes: Conditional Voluntary Guardianship: No Medication Compliance: Yes Attending Groups: Intermittent Mental Status Exam Mental Status Exam Patient Appearance: Well Grooomed Patient Orientation: Person, Place, Time and Situation Level of Consciousness: Awake Patient Behavior: Appropriate Mood Description: Depressed Affect Description: Constricted Patient Cognition Impaired: No Ability to Follow Directions: Good Speech Pattern: Clear Diagnostics Vital Signs (24Hr): Vital Signs - 24 hr 07/29/21 08:30 07/29/21 09:25 07/29/21 09:28 Temperature 97.9 F Pulse Rate 60 60 60 Respiratory Rate 16 Blood Pressure 172/82 H 172/82 H 172/82 H Pulse Oximetry 97 Body Mass Index 29.5 Labs Results: 07/09/21 14:05 07/09/21 14:05 Medications Medications Current Medications Generic Name Dose Route Start Last Admin Trade Name Freq PRN Reason Stop Dose Admin Acetaminophen 650 mg 07/09/21 16:02 07/27/21 08:00 Acetaminophen 325 Mg Tablet PO 650 mg Q6H PRN Administration Headache/Pain Mild Scale (1-3) Al Hydroxide/Mg Hydroxide 30 ml 07/09/21 16:02 Magnesium Hydrox/Alum Hydrox 30 Ml Oral.Susp PO Q6H PRN Heartburn/Nausea Albuterol Sulfate 2 puff 07/09/21 17:08 07/28/21 08:37 Albuterol Sulfate 90 Mcg 8 Gm Inhaler INHALE 2 puff Q6H PRN Administration Shortness of Breath/Wheezing Amlodipine Besylate 10 mg 07/12/21 09:00 07/29/21 09:25 Amlodipine Besylate 5 Mg Tablet PO 10 mg DAILY TAZ Administration Protocol Brexpiprazole 2 mg 07/19/21 09:00 07/29/21 09:32 Brexpiprazole 1 Mg Tablet PO 2 mg DAILY TAZ Administration Dibucaine 1 appl 07/19/21 13:28 07/25/21 21:17 Dibucaine 1 % Oint 28 Gm Tube TOPICAL 1 appl QID PRN Administration Hemorrhoids Protocol Docusate Sodium 100 mg 07/09/21 21:00 07/29/21 09:27 Docusate Sodium 100 Mg Capsule PO 100 mg BID TAZ Administration Escitalopram Oxalate 10 mg 07/10/21 09:00 07/29/21 09:30 Escitalopram Oxalate 10 Mg Tablet PO 10 mg DAILY TAZ Administration Finasteride 5 mg 07/10/21 09:00 07/29/21 09:40 Finasteride 5 Mg Tablet PO 5 mg DAILY TAZ Administration Gabapentin 400 mg 07/27/21 09:00 07/29/21 14:10 Gabapentin 400 Mg Capsule PO 400 mg TID TAZ Administration Hydrocortisone 1 appl 07/19/21 14:30 07/29/21 13:07 Hydrocortisone 2.5 % Rectal Cr 30 Gm Tube TN Not Given BID TAZ Ibuprofen 400 mg 07/10/21 13:25 07/29/21 14:10 Ibuprofen 400 Mg Tablet PO 400 mg Q6H PRN Administration Pain, Moderate (Pain Scale 4-6 Lamotrigine 150 mg 07/29/21 21:00 Lamotrigine 100 Mg Tablet PO BID [facility] Latanoprost 1 drop 07/09/21 21:00 07/28/21 21:23 Latanoprost 0.005 % Ophth No 2.5 Ml Drops EYE-BOTH 1 drop BEDTIME TAZ Administration Lidocaine 1 patch 07/25/21 11:00 07/29/21 13:07 Lidocaine 4 % Patch Adh..Patch TRANSDERMA Not Given DAILY [facility] Protocol Lisinopril 40 mg 07/10/21 09:00 07/29/21 09:28 Lisinopril 40 Mg Tablet PO 40 mg DAILY TAZ Administration Protocol Lorazepam 0.5 mg 07/29/21 16:39 Lorazepam 0.5 Mg Tablet PO Q6H PRN Anxiety Magnesium Hydroxide 30 ml 07/09/21 16:02 07/27/21 14:46 Milk Of Magnesia 30 Ml Oral.Susp PO 30 ml DAILY PRN Administration Constipation Melatonin 6 mg 07/09/21 21:00 07/28/21 21:22 Melatonin 3 Mg Tablet PO 6 mg BEDTIME TAZ Administration Mirtazapine 45 mg 07/29/21 21:00 Mirtazapine 15 Mg Tablet PO BEDTIME [facility] Multivitamins/Minerals 1 tab 07/10/21 09:00 07/29/21 09:28 Multivitamin With Minerals Tablet PO 1 tab DAILY TAZ Administration Polyethylene Glycol 17 gm 07/09/21 17:08 07/28/21 08:40 Polyethylene Glycol 3350 17 Gm Powd.Pack PO 17 gm DAILY PRN Administration Constipation Psyllium Hydrophilic Mucilloid 3.4 gm 07/10/21 09:00 07/29/21 09:47 Psyllium Seed 3.4 Gm Powd.Pack PO 3.4 gm DAILY TAZ Administration Quetiapine Fumarate 25 mg 07/16/21 10:00 07/29/21 16:24 Quetiapine Fumarate 25 Mg Tablet PO 25 mg Q4H PRN Administration Anxiety Sodium Biphosphate/Sodium Phosphate 133 ml 07/09/21 17:08 Sodium Phosphate,[place]-Dibasic 133 Ml Enema TN ONCE PRN Constipation Trazodone HCl 300 mg 07/13/21 21:00 07/28/21 21:22 Trazodone Hcl 100 Mg Tablet PO 300 mg BEDTIME TAZ Administration Allergies Allergies Allergy/AdvReac Type Severity Reaction Status Date / Time fentanyl [FENTANYL] Allergy Intermediate unknown Verified 05/22/21 11:43 Assessment & Plan Assessment & Plan (1) Major depressive disorder, recurrent severe without psychotic features: Status: Acute Code(s): F33.2 - Major depressive disorder, recurrent severe without psychotic features Assessment and Plan: Continue Rexulti mirtazapine encourage coping strategies discussed option for TMS outpatient partial hospital referral Dependent character traits may be difficult to break through.d/c in am if stable (2) Cognitive and neurobehavioral dysfunction following brain injury: Status: Acute Code(s): G31.89 - Other specified degenerative diseases of nervous system; F09 - Unspecified mental disorder due to known physiological condition; S06.9X9S - Unspecified intracranial injury with loss of consciousness of unspecified duration, sequela (3) HTN (hypertension): Status: Acute Code(s): I10 - Essential (primary) hypertension Assessment and Plan: . Rexulti ECT for tomorrow her amlodipine increased to 10 mg daily for hypertension monitor for self-harming behavior Continue ECT monitor response to Rexulti discharge held off patient does not seem stable for discharge Greater than 50% of the session was spent on counseling and/or coordination of care Reason for contiued inpatient stay Substantial Risk for: inability to function and rapid decompensation
[2021-07-29] MEDS: polyethylene glycoL 3350 17 GM POWD.PACK PO (21:32)
[2021-07-29 21:34] VITALS: BP 160/82; PULSE 62; RESP 18; O2SAT 96
[2021-07-29] MEDS: Melatonin 3 MG TABLET 6 MG PO (22:14)
[2021-07-29] MEDS: traZODone HCL 100 MG TABLET 300 MG PO (22:15)
[2021-07-29] MEDS: lamoTRIgine 100 MG TABLET 150 MG PO (22:16)
[2021-07-29] MEDS: Mirtazapine 15 MG TABLET 45 MG PO (22:19)
[2021-07-29] MEDS: Latanoprost 0.005 % Ophth Sol 2.5 ML DROPS 1 DROP EYE-BOTH (22:20)
[2021-07-29] MEDS: Hydrocortisone 2.5 % Rectal Cr 30 GM TUBE 1 APPL PR (22:20)
[2021-07-29] MEDS: LORazepam 0.5 MG TABLET PO (22:35)
[2021-07-30 06:00] VITALS: BP 168/87; PULSE 62; RESP 17; TEMP 36.6; O2SAT 97
[2021-07-30 09:53] VITALS: BP 168/87; PULSE 62
[2021-07-30] MEDS: lisinopriL 40 MG TABLET PO (09:53)
[2021-07-30] MEDS: Brexpiprazole 1 MG TABLET 2 MG PO (09:54)
[2021-07-30] MEDS: lamoTRIgine 100 MG TABLET 150 MG PO (09:55)
[2021-07-30] MEDS: Docusate Sodium 100 MG CAPSULE PO (09:55)
[2021-07-30] MEDS: Gabapentin 400 MG CAPSULE PO ×2 (09:55→13:44)
[2021-07-30] MEDS: Escitalopram Oxalate 10 MG TABLET PO (09:56)
[2021-07-30 09:57] VITALS: BP 168/87; PULSE 62
[2021-07-30] MEDS: amLODIPine Besylate 5 MG TABLET 10 MG PO (09:57)
[2021-07-30] MEDS: Finasteride 5 MG TABLET PO (09:57)
[2021-07-30] MEDS: Lidocaine 4 % Patch ADH..PATCH 1 PATCH TRANSDERMA (09:59)
[2021-07-30] MEDS: LORazepam 0.5 MG TABLET PO (13:44)
[2021-07-30] MEDS: Ibuprofen 400 MG TABLET PO (13:44)
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
== END 2021-07-30 15:50 | disposition home health service (06) | DRG 885 ==
LOC: HO.PGERI 16:12
PROVIDERS: Psychiatry & Neurology Psychiatry; Admitting Provider Psychiatry & Neurology Psychiatry; PCP Internal Medicine; Visit Provider Psychiatry & Neurology Psychiatry
PROC: GZB4ZZZ Other Electroconvulsive Therapy (ICD-10-PCS; CPT 90870; principal; 2021-07-15 07:30)
PROC: (CPT 90870; principal; 2021-07-17 08:00)
DX: F33.2 Major depressive disorder, recurrent severe without psychotic features (principal); R45.851 Suicidal ideations; I10 Essential (primary) hypertension; Z87.820 Personal history of traumatic brain injury; Z20.822 Contact with and (suspected) exposure to COVID-19; Z79.1 Long term (current) use of non-steroidal anti-inflammatories (NSAID); Z79.899 Other long term (current) drug therapy
CPT/HCPCS: 36415; 80053; 85025; 87635; 90870; 93005; 99232; C9803; J0330; J1885; J2405

== ENCOUNTER → 2021-07-12 | Day surgery (SDC) | payer MEDICARE, MEDICAID, SELFPAY ==
[2021-07-12 06:35] VITALS: BP 178/81; PULSE 56; RESP 16; TEMP 36.1; O2SAT 100; BMI 29.5
--- NOTE | 2021-07-12 07:30 | HO.ANESPROP2 ---
[facility] Active Problems Active Problems: All Active Problems (Updated 05/24/21 @ 23:38 by Addy Haskins MD) Major depressive disorder, recurrent severe without psychotic features (Acute) Cognitive and neurobehavioral dysfunction following brain injury (Acute) HTN (hypertension) (Acute) Past Medical History Medical History Alcohol use disorder, severe, in sustained remission Cognitive and neurobehavioral dysfunction following brain injury Hernia HTN (hypertension) Major depressive disorder, recurrent Major depressive disorder, recurrent severe without psychotic features Surgical History Surgical History H/O brain surgery History of hip replacement S/P cholecystectomy History of Problems with Anesthesia: No Social History Social History Household Members: Caregiver and Other Household Members Other:: Pt lives in a fci Housing: Other Housing Other:: Longterm Do you presently have visiting nurse or other home services: No Patient Tobacco Use Status: Never used Tobacco Use of substances other than those prescribed or required for medical reasons: No Are you DNR?: No Advance Directives: Yes Advance Directives on File: Yes Advance Directives Date on File: 05/27/19 Recently lost weight without trying: Yes How much weight loss: 2-13 pounds Nutrition Risks: No Nutritional Risk service: No Sexual orientation: Straight/Heterosexual Meds Allergies Allergy/AdvReac Type Severity Reaction Status Date / Time fentanyl [FENTANYL] Allergy Intermediate unknown Verified 05/22/21 11:43 Home Medications Medication Instructions Recorded Confirmed Last Taken Type Tylenol 650 mg PO Q6-8H PRN 05/22/21 05/22/21 Unknown History albuterol 90 mcg/actuation aerosol See Rx Instructions .ROUTE .COMPLEX 05/22/21 05/22/21 Unknown History inhaler clotrimazole 1 % topical solution See Rx Instructions .ROUTE 05/22/21 05/22/21 Unknown History .COMPLEX PRN dextromethorphan-guaifenesin 10 10 ml PO Q6-8H PRN 05/22/21 05/22/21 Unknown History mg-200 mg/5 mL oral liquid docusate sodium 100 mg capsule 1 cap PO BID 05/22/21 05/22/21 Unknown History docusate sodium 100 mg capsule See Rx Instructions .ROUTE 05/22/21 05/22/21 Unknown History .COMPLEX PRN finasteride 5 mg tablet 1 tab PO DAILY 05/22/21 05/22/21 Unknown History glycerin 1 drp OPHTHALMIC (EYE) Q1-2H PRN 05/22/21 05/22/21 Unknown History latanoprost 0.005 % eye drops 1 drp OPHTHALMIC (EYE) DAILY 05/22/21 05/22/21 Unknown History magnesium hydroxide 400 mg/5 mL 2,400 mg PO PRN 05/22/21 Unknown History oral suspension (Milk of Magnesia) melatonin 5 mg tablet 5 mg PO BEDTIME 05/22/21 05/22/21 Unknown History lznseshutvnz-xlzpwttl-fyzwyc tablet 1 tab PO DAILY 05/22/21 05/22/21 Unknown History polyethylene glycol 3350 17 17 g PO DAILY 05/22/21 05/22/21 Unknown History gram/dose oral powder polyethylene glycol 3350 17 17 g PO DAILY PRN 05/22/21 05/22/21 Unknown History gram/dose oral powder psyllium husk 0.4 gram capsule 0.4 g PO DAILY 05/22/21 05/22/21 Unknown History (Metamucil) sodium phosphates 19 gram-7 118 ml [place] DAILY PRN 05/22/21 05/22/21 Unknown History gram/118 mL enema (Fleet Enema) trazodone 150 mg tablet 2 tab PO BEDTIME 05/22/21 05/22/21 Unknown History Exam Exam Date and Time: July 12, 2021 0730 Height,Weight and Vital Signs: Height 6 ft 2 in Weight 104.326 kg Last Vital Signs Temp 97.0 F 07/12/21 06:35 Pulse 56 07/12/21 06:35 Resp 16 07/12/21 06:35 BP 178/81 H 07/12/21 06:35 Pulse Ox 100 07/12/21 06:35 Airway TM Dist: >3cm Neck ROM: Full Loose/Missing/Broken Teeth: No Heart: RRR Lungs: CTA Assessment and Plan Assessment Anesthesia Assessment: Anesthesia Plan Discussed and Chart Reviewed Final Anesthetic Review History of Problems with Anesthesia: No ASA Class: II Final Preanesthetic Review: Meds/Allgs Chart Reviewed, Consent Obtained/Reviewed and Anes Risks/Benef Reviewed Patient Risk: Low Procedure Risk: Intermediate Anesthetic Plan Anesthetic Plan: GA Disposition: Standard PACU
[2021-07-12 07:52] VITALS: BP 153/104; PULSE 69; RESP 18; TEMP 36.7; O2SAT 94
[2021-07-12 07:57] VITALS: BP 165/88; PULSE 66; RESP 18; O2SAT 98
[2021-07-12 08:02] VITALS: BP 152/87; PULSE 63; RESP 18; O2SAT 99
[2021-07-12 08:07] VITALS: BP 152/84; PULSE 58; RESP 18; O2SAT 98
[2021-07-12 08:44] VITALS: BP 145/75; PULSE 59; RESP 21; TEMP 36.2; O2SAT 98
== END ==
PROVIDERS: PCP Internal Medicine; Visit Provider Psychiatry & Neurology Psychiatry
PROC: (CPT 90870; principal; 2021-07-12 15:00)
DX: F33.3 Major depressive disorder, recurrent, severe with psychotic symptoms (principal); Z87.820 Personal history of traumatic brain injury
CPT/HCPCS: 90870

== ENCOUNTER 2021-08-05 09:26 | Outpatient (RCR) | payer MEDICARE, MEDICAID, SELFPAY | END 2021-08-27 07:25 | disposition home or self-care (01) | LOC: HO.WCC 09:26 | PROVIDERS: PCP Internal Medicine; Visit Provider Physician Assistant | DX: Z09 Encounter for follow-up examination after completed treatment for conditions other than malignant neoplasm (principal); G81.14 Spastic hemiplegia affecting left nondominant side; I10 Essential (primary) hypertension; Z87.820 Personal history of traumatic brain injury; B35.6 Tinea cruris | CPT/HCPCS: 99212; 99213 ==

== ENCOUNTER 2021-10-01 16:17 | Inpatient (IN) | payer MEDICARE, MEDICAID, SELFPAY ==
--- NOTE | 2021-10-01 | ECG_ITS ---
Test Reason : HYPERTENSION Blood Pressure : / mmHG Vent. Rate : 066 BPM Atrial Rate : 066 BPM P-R Int : 202 ms QRS Dur : 098 ms QT Int : 402 ms P-R-T Axes : 027 -22 100 degrees QTc Int : 421 ms Normal sinus rhythm ST & T wave abnormality, consider lateral ischemia Abnormal ECG When compared with ECG of 10-JUL-2021 14:14, No significant change was found Referred By: Generic ED Physician Electronically Signed By:BONNIE NOYOLA MD
[2021-10-01 16:24] VITALS: BP 180/101; PULSE 67; RESP 18; TEMP 36.2; O2SAT 98; BMI 31.7
--- NOTE | 2021-10-01 16:48 | MHC.CARE ---
CARE team aware of pt in ED. Pt was recommended to come to the emergency department by his outpatient psychiatrist, Dr. Haskins, to be evaluated for inpt admission to S1 older adult unit. This credit underwriter will meet with pt to complete assessment once he is medically cleared.
--- NOTE | 2021-10-01 16:48 | ED.PSYCH ---
HPI - Psych General Chief Complaint: Psychiatric Symptoms Stated Complaint: psych eval Time Seen by Provider: 10/01/21 16:41 Source: patient Mode of arrival: wheelchair Limitations: no limitations History of Present Illness HPI Narrative: This is a 66 years old the patient presented to the emergency department with a chief complain and SI, he has a long history of depression with prior psychiatric hospitalization. He has history of a subdural hematoma in 2005 he has difficulty ambulating a baseline as a result of the TBI MD complaint: suicidal ideation Onset (ago): day(s) (2) Duration: constant History of same: Yes Relieving factors: none Exacerbating factors: none Associated psychiatric symptoms: depression and suicidal ideation Associated symptoms: denies other symptoms Treatments prior to arrival: none If self harm: admits thoughts of self harm and has plan (wheel his whelchair to traffic) Related Data Home Medications Medication Instructions Recorded Confirmed Tylenol 650 mg PO Q6-8H PRN 05/22/21 05/22/21 albuterol 90 mcg/actuation aerosol See Rx Instructions .ROUTE .COMPLEX 05/22/21 05/22/21 inhaler clotrimazole 1 % topical solution See Rx Instructions .ROUTE 05/22/21 05/22/21 .COMPLEX PRN dextromethorphan-guaifenesin 10 10 ml PO Q6-8H PRN 05/22/21 05/22/21 mg-200 mg/5 mL oral liquid docusate sodium 100 mg capsule 1 cap PO BID 05/22/21 05/22/21 docusate sodium 100 mg capsule See Rx Instructions .ROUTE 05/22/21 05/22/21 .COMPLEX PRN finasteride 5 mg tablet 1 tab PO DAILY 05/22/21 05/22/21 glycerin 1 drp OPHTHALMIC (EYE) Q1-2H PRN 05/22/21 05/22/21 latanoprost 0.005 % eye drops 1 drp OPHTHALMIC (EYE) DAILY 05/22/21 05/22/21 magnesium hydroxide 400 mg/5 mL 2,400 mg PO PRN 05/22/21 oral suspension (Milk of Magnesia) melatonin 5 mg tablet 5 mg PO BEDTIME 05/22/21 05/22/21 vozwtgcpogsy-lellxzlx-kjuzrp tablet 1 tab PO DAILY 05/22/21 05/22/21 polyethylene glycol 3350 17 17 g PO DAILY 05/22/21 05/22/21 gram/dose oral powder polyethylene glycol 3350 17 17 g PO DAILY PRN 05/22/21 05/22/21 gram/dose oral powder psyllium husk 0.4 gram capsule 0.4 g PO DAILY 05/22/21 05/22/21 (Metamucil) sodium phosphates 19 gram-7 118 ml [place] DAILY PRN 05/22/21 05/22/21 gram/118 mL enema (Fleet Enema) trazodone 150 mg tablet 2 tab PO BEDTIME 05/22/21 05/22/21 brexpiprazole 3 mg tablet (Rexulti) 1 tab PO DAILY 10/01/21 lamotrigine 100 mg tablet 1 tab PO BID 10/01/21 lamotrigine 200 mg tablet 1 tab PO BID 10/01/21 mirtazapine 30 mg tablet 1 tab PO BEDTIME 10/01/21 omeprazole 20 mg capsule,delayed 1 cap PO BID 10/01/21 release vortioxetine 5 mg tablet 1 tab PO DAILY 10/01/21 (Trintellix) Previous Rx's Medication Instructions Recorded escitalopram oxalate 10 mg tablet 10 mg PO DAILY 30 Days #30 tab 06/20/21 ibuprofen 400 mg tablet 400 mg PO Q6H PRN 30 Days #60 tab 06/20/21 lisinopril 40 mg tablet 40 mg PO DAILY 30 Days #30 tab 06/20/21 quetiapine 25 mg tablet 25 mg PO BID PRN 30 Days #60 tab 06/20/21 lorazepam 0.5 mg tablet 0.5 mg PO Q6H PRN 30 Days #120 tab 07/24/21 MDD 2 mg amlodipine 10 mg tablet 10 mg PO DAILY 30 Days #30 tab 07/29/21 brexpiprazole 2 mg tablet 2 mg PO DAILY 30 Days #30 tab 07/29/21 gabapentin 400 mg capsule 400 mg PO TID 30 Days #90 cap 07/29/21 lidocaine 4 % topical patch 1 patch TRANSDERMAL DAILY 30 Days 07/29/21 (Lidocaine Pain Relief) #30 ea lorazepam 0.5 mg tablet 0.5 mg PO Q6H PRN 30 Days #90 tab 07/29/21 polyethylene glycol 3350 17 gram 17 g PO DAILY PRN 30 Days ea 07/29/21 oral powder packet Allergies Allergy/AdvReac Type Severity Reaction Status Date / Time fentanyl [FENTANYL] Allergy Intermediate unknown Verified 05/22/21 11:43 Review of Systems Review of Systems: Yes all other systems are reviewed and are negative Constitutional: Constitutional: Reports no additional constitutional complaints ENT: Denies vertigo and Denies dizziness Cardiovascular: Cardiovascular: Reports no additional cardiovascular complaints Respiratory: Respiratory: Reports no additional respiratory complaints Neurologic: Denies vertigo and Denies dizziness [facility] Past Medical History Medical History Alcohol use disorder, severe, in sustained remission Cognitive and neurobehavioral dysfunction following brain injury Hernia HTN (hypertension) Major depressive disorder, recurrent Major depressive disorder, recurrent severe without psychotic features Surgical History H/O brain surgery History of hip replacement S/P cholecystectomy Social History Social History Household Members: Caregiver and Other Household Members Other:: Pt lives in a skilled nursing Housing: Other Housing Other:: Jail Do you presently have visiting nurse or other home services: No Alcohol intake: former Patient Tobacco Use Status: Never used Tobacco Use of substances other than those prescribed or required for medical reasons: No Advance Directives: No Advance Directives Information Provided: No Advance Directives Date on File: 05/27/19 Healthcare Proxy: Yes Guardian: No service: No Sexual orientation: Straight/Heterosexual Physical Exam Vital Signs: Vital Signs: Last Vital Signs Temp 96.6 F L 10/01/21 17:41 Pulse 60 10/01/21 20:38 Resp 18 10/01/21 20:38 BP 100/55 L 10/01/21 20:38 Pulse Ox 95 10/01/21 20:38 Body Mass Index 31.7 he looks non toxic,no distress Const: General: cooperative and well developed Orientation/consciousness: patient oriented x3 HENMT: Head: Yes normal to inspection Face and sinus: Yes normal facial exam Mouth: Normal oral and palatal mucosa present Throat: Yes posterior oropharynx normal Eyes: General: appearance normal, both eyes and all related structures Neck: Neck: Yes normal visual inspection and Yes full ROM Chest: Chest palpation & inspection: normal inspection of the chest Resp: Effort & Inspection: normal respiratory effort Auscultation: clear to auscultation bilaterally Cardio: Jugular venous distension: no JVD Rate: regular rate Rhythm: regular rhythm GI: Inspection: Yes normal to inspection Palpation (GI): Soft to palpation, not firm and nontender Neuro: General: patient oriented x3 Cranial nerves: Yes CN's II-XII intact bilaterally Course Course Course Narrative: Medical clear for psych admission,his initial BP ws elevated but improved after .1 mg of clonidine,he lso had DORAN better after Oxycodon 5 mg. At this time he is asyntomatic lab and EKG OK MDM - Psych Lab Data Attestation: I reviewed the patient's lab results. Result diagrams: 10/01/21 19:18 10/01/21 19:18 Labs: Lab Results 10/01/21 10/01/21 10/01/21 Range/Units 19:18 19:18 20:03 WBC 5.9 (4.8-10.8) X10*3/uL RBC 4.34 L (4.60-5.80) X10*6/uL Hgb 14.1 (14.0-18.0) g/dl Hct 42.1 (42.0-52.0) % MCV 97.0 (80.0-98.0) fL MCH 32.5 (27.0-33.0) pg MCHC 33.5 (31.0-36.0) g/dl RDW 11.7 (11.0-16.0) % Plt Count 146 L (160-400) X10*3/uL MPV 10.1 (9.4-12.4) fL Immature Gran % (Auto) 0.5 H (0.0-0.4) % Neut % (Auto) 59.8 (45-73) % Lymph % (Auto) 29.3 (20-40) % [place] % (Auto) 4.8 (2-11) % Eos % (Auto) 5.3 H (0-4) % Baso % (Auto) 0.3 (0-2) % Lymph # (Auto) 1.7 (1.2-4.9) X10*3/uL [place] # (Auto) 0.3 (0.1-1.2) X10*3/uL Eos # (Auto) 0.3 (0.0-0.4) X10*3/uL Baso # (Auto) 0.0 (0.0-0.2) X10*3/uL Abs Immat Gran (auto) 0.03 (0.00-0.03) X10*3/uL Absolute Neuts (auto) 3.5 (2.0-8.3) x10*3/uL Absolute Nucleated RBC 0.000 (0.0-0.012) X10*3/uL Nucleated RBC % (auto) 0.0 (0.0-0.2) /100WBC Sodium 139 (135-145) mmol/L Potassium 4.3 (3.3-5.1) mmol/L Chloride 103 (96-108) mmol/L Carbon Dioxide 27 (22-29) mmol/L Anion Gap 13 (12-20) BUN 17 H (9-16) mg/dL Creatinine 1.06 (0.5-1.4) mg/dL Estim Creat Clear Calc 90.0 Estimated GFR > 60 Random Glucose 154 H D (60-115) mg/dL Calcium 9.3 (8.4-10.2) mg/dL Total Bilirubin 0.3 (0.0-1.0) mg/dL AST 27 (5-37) U/L ALT 43 H (0-40) U/L Alkaline Phosphatase 72 (39-117) U/L Total Protein 6.9 (6.5-8.0) g/dL Albumin 4.5 (3.5-5.0) g/dL COVID-19 (RACHEL) Negative (Negative) COVID-19 Clin Com See Note ECG Data Attestation: I personally reviewed and interpreted this ECG as follows: ECG interpretation date: 10/01/21 ECG interpretation time: 20:59 Pacemaker model: NSR 66 no ischemic changes Discharge Plan Discharge Clinical Impression: Depression, Suicidal ideation Patient Disposition: Admitted As Inpatient
[2021-10-01 17:41] VITALS: BP 178/91; PULSE 61; RESP 16; TEMP 35.9; O2SAT 96
[2021-10-01] MEDS: Acetaminophen 325 MG TABLET 650 MG PO (18:07)
[2021-10-01 18:08] VITALS: BP 178/91; PULSE 62
[2021-10-01] MEDS: cloNIDine HCL 0.1 MG TABLET PO (18:08)
[2021-10-01] MEDS: oxyCODONE HCl Immed Release 5 MG TABLET PO (18:48)
[2021-10-01 18:51] VITALS: BP 192/94
[2021-10-01] MEDS: hydroCHLOROthiazide 25 MG TABLET PO (18:51)
[2021-10-01 19:23] LABS: MANUAL DIFF FLAG NO
[2021-10-01 19:24] LABS: Basophils Percent Auto 0.3 % (0-2); Eosinophils Absolute Auto 0.3 X10*3/uL (0.0-0.4); Eosinophils Percent Auto 5.3 % (0-4); Hematocrit 42.1 % (42.0-52.0); Hemoglobin 14.1 g/dl (14.0-18.0); Imm Gran Abs Auto 0.03 X10*3/uL (0.00-0.03); Imm Gran Pct Auto 0.5 % (0.0-0.4); Lymphocytes Absolute Auto 1.7 X10*3/uL (1.2-4.9); Lymphocytes Percent Auto 29.3 % (20-40); Mean Corpuscular HGB Conc 33.5 g/dl (31.0-36.0); Mean Corpuscular Hemoglobin 32.5 pg (27.0-33.0); Mean Platelet Volume 10.1 fL (9.4-12.4); Monocytes Absolute Auto 0.3 X10*3/uL (0.1-1.2); Monocytes Percent Auto 4.8 % (2-11); Neutrophils Absolute Auto 3.5 x10*3/uL (2.0-8.3); Neutrophils Percent Auto 59.8 % (45-73); Platelet Count 146 X10*3/uL (160-400); Red Blood Count 4.34 X10*6/uL (4.60-5.80); Red Cell Distribution Width 11.7 % (11.0-16.0); White Blood Count 5.9 X10*3/uL (4.8-10.8)
[2021-10-01 19:41] LABS: Alanine Aminotransferase 43 U/L (0-40); Albumin Level 4.5 g/dL (3.5-5.0); Alkaline Phosphatase 72 U/L (39-117); Anion Gap 13 (12-20); Aspartate Amino Transferase 27 U/L (5-37); Bilirubin Total 0.3 mg/dL (0.0-1.0); Blood Urea Nitrogen 17 mg/dL (9-16); Calcium 9.3 mg/dL (8.4-10.2); Carbon Dioxide 27 mmol/L (22-29); Chloride 103 mmol/L (96-108); Estimated Glomerular Filt Rate > 60; Glucose Random 154 mg/dL (60-115); Potassium 4.3 mmol/L (3.3-5.1); Sodium 139 mmol/L (135-145); Total Protein 6.9 g/dL (6.5-8.0)
[2021-10-01 19:57] VITALS: BP 103/59; PULSE 62; RESP 16; O2SAT 95
[2021-10-01 20:21] LABS: COVID-19 Test Negative (Negative)
--- NOTE | 2021-10-01 20:22 | PC.NURSE ---
[facility] dining service supervisor and product development manager [phone]. Interpretive Naturalist called. Patient has rash from groin to coccyx with nystatin cream.
[2021-10-01 20:38] VITALS: BP 100/55; PULSE 60; RESP 18; O2SAT 95
[2021-10-01] MEDS: traZODone HCL 50 MG TABLET PO ×2 (22:40→23:41)
[2021-10-02 00:05] VITALS: BP 117/64; PULSE 61; RESP 17; TEMP 36.2; O2SAT 94
[2021-10-02 00:10] VITALS: BMI 30.2
--- NOTE | 2021-10-02 00:27 | PC.ADMIT ---
Admitted from Ed, a 66 y.o.,white,Kazakh speaking male,per stretcher accompanied by security.According to report patient was brouht to ED by snf staff for evaluation at the recommendation of his outpatient psychiatrist for worsening depression and intrusive thoughts of suicide for the past 5 days.He endorsed a plan, which he had intended to act upon tonight,to dress in all black clothing and to wheel himself in his w/c into a busy road.Upon admission here in the Unit,Patient is alert and oriented x4, pleasant on approached.Patient signs the CV and some consents.Patient has history of TBI, HTN and wheelchair bound.Skin warm and dry, no open areas,no bruises feet are dry and scaly. No C/O pain and patient denies SI/HI/AH/VH.No acute SOB noted,respiration even and regular. patient wears hearing aides to both ears and wears glasses.Patient is cooperative at he beginning of admission process then get impatient at the middle of admission process and said, I can't do it anymore,you have to stop . Patient uses a walker to transfer, unsteady and shaky and needs 2 assist.Patient denies pain.Patient uses urinal for voiding and has his own teeth.Patient has admitting diagnosis of Major depressive disorder,recurrent,severe,no psych features.
[2021-10-02 06:00] VITALS: BP 139/89; PULSE 66; RESP 16; TEMP 36.5; O2SAT 96
[2021-10-02] MEDS: Multivitamin TABLET 1 TAB PO (10:58)
[2021-10-02] MEDS: Gabapentin 400 MG CAPSULE PO ×3 (10:58→20:58)
[2021-10-02 10:59] VITALS: BP 139/89; PULSE 66
[2021-10-02] MEDS: lamoTRIgine 100 MG TABLET 200 MG PO ×2 (10:59→22:13)
[2021-10-02] MEDS: amLODIPine Besylate 10 MG TABLET PO (10:59)
[2021-10-02] MEDS: lisinopriL 40 MG TABLET PO (10:59)
[2021-10-02] MEDS: Escitalopram Oxalate 5 MG TABLET PO (10:59)
[2021-10-02] MEDS: Finasteride 5 MG TABLET PO (11:01)
[2021-10-02] MEDS: Acetaminophen 325 MG TABLET 650 MG PO (13:16)
[2021-10-02] MEDS: LORazepam 0.5 MG TABLET PO ×2 (13:16→20:57)
[2021-10-02] MEDS: Artificial Tears 15 ML DROPS 1 DROP EYE-BOTH (13:21)
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
[2021-10-02] MEDS: Hydrocortisone 1 % Cream 28.35 GM TUBE 1 APPL TOPICAL (16:16)
[2021-10-02] MEDS: polyethylene glycoL 3350 17 GM POWD.PACK PO (16:18)
[2021-10-02 20:06] VITALS: BP 121/64; PULSE 68; RESP 16; TEMP 36.1; O2SAT 96
[2021-10-02] MEDS: Latanoprost 0.005 % Ophth Sol 2.5 ML DROPS 1 DROP EYE-BOTH (20:55)
[2021-10-02] MEDS: Miconazole 2 % Extra Thick Cr 56.7 Gm Tube 1 APPL TOPICAL (20:55)
[2021-10-02] MEDS: Docusate Sodium 100 MG CAPSULE PO (20:57)
[2021-10-02] MEDS: Melatonin 3 MG TABLET 6 MG PO (21:00)
[2021-10-02] MEDS: Mirtazapine 15 MG TABLET 45 MG PO (21:01)
[2021-10-02] MEDS: traZODone HCL 100 MG TABLET 300 MG PO (21:01)
[2021-10-03 06:00] VITALS: BP 115/57; PULSE 74; RESP 14; TEMP 37; O2SAT 94
[2021-10-03 06:02] LABS: Appearance Urine CLEAR; Color Urine YELLOW; Glucose Urine UA NEG (NEG); Leukocyte Esterase Urine NEG (NEG); Nitrite Urine NEG (NEG); Specific Gravity - Urine 1.015 (1.005-1.025); Urine Blood NEG (NEG); Urine Ketones NEG (NEG); Urine Protein NEG (NEG-TRACE)
[2021-10-03 06:12] LABS: Mucus Urine 2+ /LPF; Squamous Epithelial Cell Urine 2+ /LPF
[2021-10-03 06:13] LABS: Bacteria Urine TRACE /LPF; RBC Urine 0-2 /HPF (0); WBC Urine 0 /HPF (0-4)
[2021-10-03 07:00] VITALS: BMI 30.2
[2021-10-03 08:36] LABS: Amphetamine Screen Urine Not Detected (Not Detect); Barbiturates, Urine Not Detected (Not Detect); Benzodiazepines Screen Urine Not Detected (Not Detect); Cannabinoid Screen Urine Not Detected (Not Detect); Cocaine Screen Urine Not Detected (Not Detect); Fentanyl, urine Not Detected (Not Detect); Opiate Screen Urine Not Detected (Not Detect); Phencyclidine Screen Urine Not Detected (Not Detect)
[2021-10-03] MEDS: lamoTRIgine 100 MG TABLET 200 MG PO ×2 (09:24→20:35)
[2021-10-03] MEDS: Finasteride 5 MG TABLET PO (09:24)
[2021-10-03] MEDS: Brexpiprazole 1 MG TABLET 3 MG PO (09:24)
[2021-10-03 09:25] VITALS: BP 115/57; PULSE 74
[2021-10-03] MEDS: Gabapentin 400 MG CAPSULE PO ×3 (09:25→20:35)
[2021-10-03] MEDS: lisinopriL 40 MG TABLET PO (09:25)
[2021-10-03] MEDS: Vortioxetine Hydrobromide 10 MG TABLET PO (09:25)
[2021-10-03] MEDS: Multivitamin TABLET 1 TAB PO (09:25)
[2021-10-03] MEDS: Escitalopram Oxalate 5 MG TABLET PO (09:25)
[2021-10-03] MEDS: amLODIPine Besylate 10 MG TABLET PO (09:25)
[2021-10-03] MEDS: Ibuprofen 400 MG TABLET PO (09:30)
[2021-10-03] MEDS: Lidocaine 4 % Patch ADH..PATCH 1 PATCH TRANSDERMA (10:00)
[2021-10-03] MEDS: Miconazole 2 % Extra Thick Cr 56.7 Gm Tube 1 APPL TOPICAL ×2 (11:42→20:34)
--- NOTE | 2021-10-03 15:02 | P.PNPSI_ITS ---
Subjective Subjective Date of Service: 10/03/21 Reason For Visit: MDD Service Subjective Notes: Conditional Voluntary Interim History: The nursing staff reports the patient is pleasant and cooperative, fully compliant with medications. On interview, the patient reports exacerbation of depressive symptoms elicited by depressed mood, suicidal thoughts and severe lack of energy. I consulted with Dr. Haskins and apparently they were cross tapering his SSRI for to start Rexulti and he decompensated. A review his list of medications and currently he is on Rexulti 3 mg p.o. daily, we will discuss the possibility to go to 4 mg in a few days Mental Status Exam Mental Status Exam Patient Appearance: Well Grooomed (Wheelchair bounded) Patient Orientation: Person and Situation Level of Consciousness: Awake Patient Behavior: Cooperative Mood Description: Depressed Affect Description: Constricted Patient Cognition Impaired: No Ability to Follow Directions: Good Speech Pattern: Clear Hallucinations: None Delusions: Not Present Thought Process: Linear Thought Content: positive for Circumstantial Depressive Symptoms: Diff. Making Decisions, Difficulty Sleeping, Crying Spells and Feelings of Worthlessness Judgement: Fair Diagnostics Vital Signs (24Hr): Vital Signs - 24 hr 10/02/21 20:06 10/03/21 06:00 10/03/21 09:25 Temperature 96.9 F 98.6 F Pulse Rate 68 74 74 Respiratory Rate 16 14 Blood Pressure 121/64 115/57 L 115/57 L Pulse Oximetry 96 94 Body Mass Index 30.2 Labs Results: 10/01/21 19:18 10/01/21 19:18 Labs: Laboratory Results - last 48 hr 10/01/21 10/01/21 10/01/21 19:18 19:18 20:03 WBC 5.9 RBC 4.34 L Hgb 14.1 Hct 42.1 MCV 97.0 MCH 32.5 MCHC 33.5 RDW 11.7 Plt Count 146 L MPV 10.1 Immature Gran % (Auto) 0.5 H Neut % (Auto) 59.8 Lymph % (Auto) 29.3 [place] % (Auto) 4.8 Eos % (Auto) 5.3 H Baso % (Auto) 0.3 Lymph # (Auto) 1.7 [place] # (Auto) 0.3 Eos # (Auto) 0.3 Baso # (Auto) 0.0 Abs Immat Gran (auto) 0.03 Absolute Neuts (auto) 3.5 Absolute Nucleated RBC 0.000 Nucleated RBC % (auto) 0.0 Sodium 139 Potassium 4.3 Chloride 103 Carbon Dioxide 27 Anion Gap 13 BUN 17 H Creatinine 1.06 Estim Creat Clear Calc 90.0 Estimated GFR > 60 Random Glucose 154 H D Calcium 9.3 Total Bilirubin 0.3 AST 27 ALT 43 H Alkaline Phosphatase 72 Total Protein 6.9 Albumin 4.5 Urine Color Urine Appearance Urine pH Ur Specific [place] Urine Protein Urine Glucose (UA) Urine Ketones Urine Blood Urine Nitrite Ur Leukocyte Esterase Urine RBC Urine WBC Ur Squamous Epith Cells Urine Bacteria Hyaline Casts Urine Mucus Urine Opiates Screen Urine Fentanyl Screen Ur Barbiturates Screen Ur Phencyclidine Scrn Ur Amphetamines Screen U Benzodiazepines Scrn Urine Cocaine Screen U Marijuana (THC) Screen COVID-19 (RACHEL) Negative COVID-19 [place] [facility] See Note 10/03/21 10/03/21 05:50 05:50 WBC RBC Hgb Hct MCV MCH MCHC RDW Plt Count MPV Immature Gran % (Auto) Neut % (Auto) Lymph % (Auto) [place] % (Auto) Eos % (Auto) Baso % (Auto) Lymph # (Auto) [place] # (Auto) Eos # (Auto) Baso # (Auto) Abs Immat Gran (auto) Absolute Neuts (auto) Absolute Nucleated RBC Nucleated RBC % (auto) Sodium Potassium Chloride Carbon Dioxide Anion Gap BUN Creatinine Estim Creat Clear Calc Estimated GFR Random Glucose Calcium Total Bilirubin AST ALT Alkaline Phosphatase Total Protein Albumin Urine Color YELLOW Urine Appearance CLEAR Urine pH 6.0 Ur Specific [place] 1.015 Urine Protein NEG Urine Glucose (UA) NEG Urine Ketones NEG Urine Blood NEG Urine Nitrite NEG Ur Leukocyte Esterase NEG Urine RBC 0-2 Urine WBC 0 Ur Squamous Epith Cells 2+ Urine Bacteria TRACE Hyaline Casts 5-9 Urine Mucus 2+ Urine Opiates Screen Not Detected Urine Fentanyl Screen Not Detected Ur Barbiturates Screen Not Detected Ur Phencyclidine Scrn Not Detected Ur Amphetamines Screen Not Detected U Benzodiazepines Scrn Not Detected Urine Cocaine Screen Not Detected U Marijuana (THC) Screen Not Detected COVID-19 (RACHEL) COVID-19 Resource Interactive Medications Medications Current Medications Acetaminophen (Acetaminophen 325 Mg Tablet) 650 mg PO Q6H PRN PRN Reason: Headache/Pain Mild Scale (1-3) Last Admin: 10/02/21 13:16 Dose: 650 mg Documented by: Acetaminophen (Acetaminophen 325 Mg Tablet) 650 mg PO Q6H PRN PRN Reason: Pain (Scale Score 1-3) Al Hydroxide/Mg Hydroxide (Magnesium Hydrox/Alum Hydrox 30 Ml Oral.Susp) 30 ml PO Q6H PRN PRN Reason: Heartburn/Nausea Albuterol Sulfate (Albuterol Sulfate 90 Mcg 8 Gm Inhaler) 2 puff INHALE Q6H PRN PRN Reason: Shortness Of Breath Amlodipine Besylate (Amlodipine Besylate 10 Mg Tablet) 10 mg PO DAILY [facility]; Protocol Last Admin: 10/03/21 09:25 Dose: 10 mg Documented by: Artificial Tears (Artificial Tears 15 Ml Drops) 1 drop EYE-BOTH Q1H PRN PRN Reason: Dry Eye(S) Last Admin: 10/02/21 13:21 Dose: 1 drop Documented by: Brexpiprazole (Brexpiprazole 1 Mg Tablet) 3 mg PO DAILY [facility] Last Admin: 10/03/21 09:24 Dose: 3 mg Documented by: Docusate Sodium (Docusate Sodium 100 Mg Capsule) 100 mg PO BEDTIME PRN PRN Reason: Constipation Last Admin: 10/02/21 20:57 Dose: 100 mg Documented by: Escitalopram Oxalate (Escitalopram Oxalate 5 Mg Tablet) 5 mg PO DAILY [facility] Last Admin: 10/03/21 09:25 Dose: 5 mg Documented by: Finasteride (Finasteride 5 Mg Tablet) 5 mg PO DAILY [facility] Last Admin: 10/03/21 09:24 Dose: 5 mg Documented by: Gabapentin (Gabapentin 400 Mg Capsule) 400 mg PO TID [facility] Last Admin: 10/03/21 09:25 Dose: 400 mg Documented by: Hydrocortisone (Hydrocortisone 1 % Cream 28.35 Gm Tube) 1 appl TOPICAL Q4H PRN; Protocol PRN Reason: RECTAL IRRITATION Last Admin: 10/02/21 16:16 Dose: 1 appl Documented by: Hydroxyzine HCl (Hydroxyzine Hcl 25 Mg Tablet) 25 mg PO BEDTIME PRN PRN Reason: Anxiety Ibuprofen (Ibuprofen 400 Mg Tablet) 400 mg PO Q6H PRN PRN Reason: Pain, Moderate (Pain Scale 4-6 Last Admin: 10/03/21 09:30 Dose: 400 mg Documented by: Lamotrigine (Lamotrigine 100 Mg Tablet) 200 mg PO BID [facility] Last Admin: 10/03/21 09:24 Dose: 200 mg Documented by: Latanoprost (Latanoprost 0.005 % Ophth No 2.5 Ml Drops) 1 drop EYE-BOTH BEDTIME [facility] Last Admin: 10/02/21 20:55 Dose: 1 drop Documented by: Lidocaine (Lidocaine 4 % Patch Adh..Patch) 1 patch TRANSDERMA DAILY [facility]; Protocol Last Admin: 10/03/21 10:00 Dose: 1 patch Documented by: Lisinopril (Lisinopril 40 Mg Tablet) 40 mg PO DAILY [facility]; Protocol Last Admin: 10/03/21 09:25 Dose: 40 mg Documented by: Lorazepam (Lorazepam 0.5 Mg Tablet) 0.5 mg PO Q6H PRN PRN Reason: Anxiety Last Admin: 10/02/21 20:57 Dose: 0.5 mg Documented by: Magnesium Hydroxide (Milk Of Magnesia 30 Ml Oral.Susp) 30 ml PO DAILY PRN PRN Reason: Constipation Magnesium Hydroxide (Milk Of Magnesia 30 Ml Oral.Susp) 30 ml PO Q72H PRN PRN Reason: Constipation Melatonin (Melatonin 3 Mg Tablet) 6 mg PO BEDTIME [facility] Last Admin: 10/02/21 21:00 Dose: 6 mg Documented by: Miconazole Nitrate (Miconazole 2 % Extra Thick Cr 56.7 Gm Tube) 1 appl TOPICAL BID [facility]; Protocol Last Admin: 10/03/21 11:42 Dose: 1 appl Documented by: Mirtazapine (Mirtazapine 15 Mg Tablet) 45 mg PO BEDTIME [facility] Last Admin: 10/02/21 21:01 Dose: 45 mg Documented by: Multivitamins/Vitamin C (Multivitamin Tablet) 1 tab PO DAILY [facility] Last Admin: 10/03/21 09:25 Dose: 1 tab Documented by: Pharmacy Consult (Consult Rx Other Drug Dosing) 1 each MISCELLANE DAILY PRN PRN Reason: Consult order Polyethylene Glycol (Polyethylene Glycol 3350 17 Gm Powd.Pack) 17 gm PO DAILY PRN PRN Reason: Constipation Polyethylene Glycol (Polyethylene Glycol 3350 17 Gm Powd.Pack) 17 gm PO DAILY@1600 [facility] Last Admin: 10/02/21 16:18 Dose: 17 gm Documented by: Quetiapine Fumarate (Quetiapine Fumarate 25 Mg Tablet) 25 mg PO BID PRN PRN Reason: Anxiety Trazodone HCl (Trazodone Hcl 50 Mg Tablet) 50 mg PO BEDTIME PRN PRN Reason: Insomnia Last Admin: 10/01/21 23:41 Dose: 50 mg Documented by: Trazodone HCl (Trazodone Hcl 100 Mg Tablet) 300 mg PO BEDTIME [facility] Last Admin: 10/02/21 21:01 Dose: 300 mg Documented by: Vortioxetine (Vortioxetine Hydrobromide 10 Mg Tablet) 10 mg PO DAILY [facility] Last Admin: 10/03/21 09:25 Dose: 10 mg Documented by: Allergies Allergies Allergy/AdvReac Type Severity Reaction Status Date / Time fentanyl [FENTANYL] Allergy Intermediate unknown Verified 05/22/21 11:43 Assessment & Plan Assessment & Plan (1) Major depressive disorder, recurrent severe without psychotic features: Status: Acute Code(s): F33.2 - Major depressive disorder, recurrent severe without psychotic features (2) Cognitive and neurobehavioral dysfunction following brain injury: Status: Acute Code(s): G31.89 - Other specified degenerative diseases of nervous system; F09 - Unspecified mental disorder due to known physiological condition; S06.9X9S - Unspecified intracranial injury with loss of consciousness of unspecified duration, sequela Assessment and Plan: The patient is an elderly male with a long history of major depressive disorder and TBI, admitted before, very well known by the service. He has been admitted for exacerbation of depression with suicidal ideation without a clear stressor. Historically, the patient responds to ECT. Plan 1. Gather collateral information from the long term. 2. Continue same antidepressants. 3. Assessment with hospitalist to clear him up for ECT. 4. Reassessment tomorrow for the possibility to increase Rexulti I spent minutes with the patient and/or on the patient floor today, greater than?50% of which was spent counseling/coordinating care. Reason for contiued inpatient stay Substantial Risk for: inability to function, rapid decompensation and med/psych decompensation
[2021-10-03] MEDS: polyethylene glycoL 3350 17 GM POWD.PACK PO (17:08)
[2021-10-03 19:28] VITALS: BP 116/62; PULSE 88; RESP 16; TEMP 36; O2SAT 94
[2021-10-03] MEDS: Latanoprost 0.005 % Ophth Sol 2.5 ML DROPS 1 DROP EYE-BOTH (20:33)
[2021-10-03] MEDS: Docusate Sodium 100 MG CAPSULE PO (20:35)
[2021-10-03] MEDS: traZODone HCL 100 MG TABLET 300 MG PO (20:36)
[2021-10-03] MEDS: LORazepam 0.5 MG TABLET PO (20:37)
[2021-10-03] MEDS: Mirtazapine 15 MG TABLET 45 MG PO (20:37)
[2021-10-03] MEDS: Melatonin 3 MG TABLET 6 MG PO (20:37)
[2021-10-04 06:00] VITALS: BP 118/67; PULSE 74; TEMP 36.5; O2SAT 94
[2021-10-04 09:47] VITALS: BP 118/67; PULSE 74
[2021-10-04] MEDS: Brexpiprazole 1 MG TABLET 3 MG PO (09:47)
[2021-10-04] MEDS: Vortioxetine Hydrobromide 10 MG TABLET PO (09:47)
[2021-10-04] MEDS: lisinopriL 40 MG TABLET PO (09:47)
[2021-10-04] MEDS: Finasteride 5 MG TABLET PO (09:47)
[2021-10-04 09:48] VITALS: BP 118/67; PULSE 74
[2021-10-04] MEDS: Multivitamin TABLET 1 TAB PO (09:48)
[2021-10-04] MEDS: lamoTRIgine 100 MG TABLET 200 MG PO ×2 (09:48→21:07)
[2021-10-04] MEDS: Escitalopram Oxalate 5 MG TABLET PO (09:48)
[2021-10-04] MEDS: Gabapentin 400 MG CAPSULE PO ×3 (09:48→21:06)
[2021-10-04] MEDS: amLODIPine Besylate 10 MG TABLET PO (09:48)
[2021-10-04] MEDS: Ibuprofen 400 MG TABLET PO (14:50)
[2021-10-04] MEDS: LORazepam 0.5 MG TABLET PO ×2 (14:50→21:06)
[2021-10-04] MEDS: polyethylene glycoL 3350 17 GM POWD.PACK PO (14:56)
--- NOTE | 2021-10-04 15:38 | P.PNPSI_ITS ---
Subjective Subjective Date of Service: 10/04/21 Reason For Visit: MDD Service Subjective Notes: Conditional Voluntary Interim History: The nursing staff reported that the patient slept well last night. He claims to be suicidal and depressed. The social media project manager reported that in his [facility] the other 4 participants are poorly functional and he cannot interact. He was engaged on therapy but later he canceled since he had was telemedicine. On interview, the patient reported that he is depressed, he has suicidal ideation but he is able to contract for safety in the facility. Mental Status Exam Mental Status Exam Patient Appearance: Well Grooomed (Wheelchair bound) Patient Orientation: Person, Place, Time and Situation Level of Consciousness: Awake Patient Behavior: Cooperative Mood Description: Depressed Affect Description: Constricted Patient Cognition Impaired: No Ability to Follow Directions: Good Speech Pattern: Clear Memory Description: Intact Hallucinations: None Delusions: Not Present Thought Process: Linear Thought Content: positive for Circumstantial Depressive Symptoms: Feelings of Worthlessness and Feelings of Guilt Judgement: Fair Diagnostics Vital Signs (24Hr): Vital Signs - 24 hr 10/03/21 19:28 10/04/21 06:00 10/04/21 09:47 Temperature 96.8 F 97.7 F Pulse Rate 88 74 74 Respiratory Rate 16 Blood Pressure 116/62 118/67 118/67 Pulse Oximetry 94 94 10/04/21 09:48 Temperature Pulse Rate 74 Respiratory Rate Blood Pressure 118/67 Pulse Oximetry Body Mass Index 30.2 Labs Results: 10/01/21 19:18 10/01/21 19:18 Labs: Laboratory Results - last 48 hr 10/03/21 10/03/21 05:50 05:50 Urine Color YELLOW Urine Appearance CLEAR Urine pH 6.0 Ur Specific [place] 1.015 Urine Protein NEG Urine Glucose (UA) NEG Urine Ketones NEG Urine Blood NEG Urine Nitrite NEG Ur Leukocyte Esterase NEG Urine RBC 0-2 Urine WBC 0 Ur Squamous Epith Cells 2+ Urine Bacteria TRACE Hyaline Casts 5-9 Urine Mucus 2+ Urine Opiates Screen Not Detected Urine Fentanyl Screen Not Detected Ur Barbiturates Screen Not Detected Ur Phencyclidine Scrn Not Detected Ur Amphetamines Screen Not Detected U Benzodiazepines Scrn Not Detected Urine Cocaine Screen Not Detected U Marijuana (THC) Screen Not Detected Medications Medications Current Medications Acetaminophen (Acetaminophen 325 Mg Tablet) 650 mg PO Q6H PRN PRN Reason: Headache/Pain Mild Scale (1-3) Last Admin: 10/02/21 13:16 Dose: 650 mg Documented by: Acetaminophen (Acetaminophen 325 Mg Tablet) 650 mg PO Q6H PRN PRN Reason: Pain (Scale Score 1-3) Al Hydroxide/Mg Hydroxide (Magnesium Hydrox/Alum Hydrox 30 Ml Oral.Susp) 30 ml PO Q6H PRN PRN Reason: Heartburn/Nausea Albuterol Sulfate (Albuterol Sulfate 90 Mcg 8 Gm Inhaler) 2 puff INHALE Q6H PRN PRN Reason: Shortness Of Breath Amlodipine Besylate (Amlodipine Besylate 10 Mg Tablet) 10 mg PO DAILY [facility]; P rotocol Last Admin: 10/04/21 09:48 Dose: 10 mg Documented by: Artificial Tears (Artificial Tears 15 Ml Drops) 1 drop EYE-BOTH Q1H PRN PRN Reason: Dry Eye(S) Last Admin: 10/02/21 13:21 Dose: 1 drop Documented by: Brexpiprazole (Brexpiprazole 1 Mg Tablet) 3 mg PO DAILY [facility] Last Admin: 10/04/21 09:47 Dose: 3 mg Documented by: Docusate Sodium (Docusate Sodium 100 Mg Capsule) 100 mg PO BEDTIME PRN PRN Reason: Constipation Last Admin: 10/03/21 20:35 Dose: 100 mg Documented by: Escitalopram Oxalate (Escitalopram Oxalate 5 Mg Tablet) 5 mg PO DAILY [facility] Last Admin: 10/04/21 09:48 Dose: 5 mg Documented by: Finasteride (Finasteride 5 Mg Tablet) 5 mg PO DAILY [facility] Last Admin: 10/04/21 09:47 Dose: 5 mg Documented by: Gabapentin (Gabapentin 400 Mg Capsule) 400 mg PO TID [facility] Last Admin: 10/04/21 14:49 Dose: 400 mg Documented by: Hydrocortisone (Hydrocortisone 1 % Cream 28.35 Gm Tube) 1 appl TOPICAL Q4H PRN; Protocol PRN Reason: RECTAL IRRITATION Last Admin: 10/02/21 16:16 Dose: 1 appl Documented by: Hydroxyzine HCl (Hydroxyzine Hcl 25 Mg Tablet) 25 mg PO BEDTIME PRN PRN Reason: Anxiety Ibuprofen (Ibuprofen 400 Mg Tablet) 400 mg PO Q6H PRN PRN Reason: Pain, Moderate (Pain Scale 4-6 Last Admin: 10/04/21 14:50 Dose: 400 mg Documented by: Lamotrigine (Lamotrigine 100 Mg Tablet) 200 mg PO BID [facility] Last Admin: 10/04/21 09:48 Dose: 200 mg Documented by: Latanoprost (Latanoprost 0.005 % Ophth No 2.5 Ml Drops) 1 drop EYE-BOTH BEDTIME [facility] Last Admin: 10/03/21 20:33 Dose: 1 drop Documented by: Lidocaine (Lidocaine 4 % Patch Adh..Patch) 1 patch TRANSDERMA DAILY [facility]; Protocol Last Admin: 10/03/21 10:00 Dose: 1 patch Documented by: Lisinopril (Lisinopril 40 Mg Tablet) 40 mg PO DAILY [facility]; Protocol Last Admin: 10/04/21 09:47 Dose: 40 mg Documented by: Lorazepam (Lorazepam 0.5 Mg Tablet) 0.5 mg PO Q6H PRN PRN Reason: Anxiety Last Admin: 10/04/21 14:50 Dose: 0.5 mg Documented by: Magnesium Hydroxide (Milk Of Magnesia 30 Ml Oral.Susp) 30 ml PO DAILY PRN PRN Reason: Constipation Magnesium Hydroxide (Milk Of Magnesia 30 Ml Oral.Susp) 30 ml PO Q72H PRN PRN Reason: Constipation Melatonin (Melatonin 3 Mg Tablet) 6 mg PO BEDTIME [facility] Last Admin: 10/03/21 20:37 Dose: 6 mg Documented by: Miconazole Nitrate (Miconazole 2 % Extra Thick Cr 56.7 Gm Tube) 1 appl TOPICAL BID [facility]; Protocol Last Admin: 10/03/21 20:34 Dose: 1 appl Documented by: Mirtazapine (Mirtazapine 15 Mg Tablet) 45 mg PO BEDTIME [facility] Last Admin: 10/03/21 20:37 Dose: 45 mg Documented by: Multivitamins/Vitamin C (Multivitamin Tablet) 1 tab PO DAILY [facility] Last Admin: 10/04/21 09:48 Dose: 1 tab Documented by: Pharmacy Consult (Consult Rx Other Drug Dosing) 1 each MISCELLANE DAILY PRN PRN Reason: Consult order Polyethylene Glycol (Polyethylene Glycol 3350 17 Gm Powd.Pack) 17 gm PO DAILY PRN PRN Reason: Constipation Polyethylene Glycol (Polyethylene Glycol 3350 17 Gm Powd.Pack) 17 gm PO DAILY@1600 [facility] Last Admin: 10/04/21 14:56 Dose: 17 gm Documented by: Quetiapine Fumarate (Quetiapine Fumarate 25 Mg Tablet) 25 mg PO BID PRN PRN Reason: Anxiety Trazodone HCl (Trazodone Hcl 50 Mg Tablet) 50 mg PO BEDTIME PRN PRN Reason: Insomnia Last Admin: 10/01/21 23:41 Dose: 50 mg Documented by: Trazodone HCl (Trazodone Hcl 100 Mg Tablet) 300 mg PO BEDTIME [facility] Last Admin: 10/03/21 20:36 Dose: 300 mg Documented by: Vortioxetine (Vortioxetine Hydrobromide 10 Mg Tablet) 10 mg PO DAILY [facility] Last Admin: 10/04/21 09:47 Dose: 10 mg Documented by: Allergies Allergies Allergy/AdvReac Type Severity Reaction Status Date / Time fentanyl [FENTANYL] Allergy Intermediate unknown Verified 05/22/21 11:43 Assessment & Plan Assessment & Plan (1) Major depressive disorder, recurrent severe without psychotic features: Status: Acute Code(s): F33.2 - Major depressive disorder, recurrent severe without psychotic features (2) Cognitive and neurobehavioral dysfunction following brain injury: Status: Acute Code(s): G31.89 - Other specified degenerative diseases of nervous system; F09 - Unspecified mental disorder due to known physiological condition; S06.9X9S - Unspecified intracranial injury with loss of consciousness of unspecified duration, sequela Assessment and Plan: The patient is an elderly male with a long history of major depressive disorder and TBI, admitted before, very well known by the service. He has been admitted for exacerbation of depression with suicidal ideation without a clear stressor. Historically, the patient responds to ECT. Plan 1. Gather collateral information from the [facility]. 2. Continue same antidepressants. 3. Assessment with hospitalist to clear him up for ECT. 4. Reassessment tomorrow for the possibility to increase Rexulti I spent minutes with the patient and/or on the patient floor today, greater than?50% of which was spent counseling/coordinating care. Reason for contiued inpatient stay Substantial Risk for: harm to self, inability to function, rapid decompensation and med/psych decompensation
[2021-10-04 18:00] VITALS: BP 111/58; PULSE 74; RESP 20; TEMP 36.3; O2SAT 95
[2021-10-04] MEDS: traZODone HCL 100 MG TABLET 300 MG PO (21:00)
[2021-10-04] MEDS: Mirtazapine 15 MG TABLET 45 MG PO (21:05)
[2021-10-04] MEDS: Melatonin 3 MG TABLET 6 MG PO (21:05)
[2021-10-04] MEDS: Latanoprost 0.005 % Ophth Sol 2.5 ML DROPS 1 DROP EYE-BOTH (21:07)
[2021-10-04] MEDS: Miconazole 2 % Extra Thick Cr 56.7 Gm Tube 1 APPL TOPICAL (21:07)
[2021-10-04] MEDS: Hydrocortisone 1 % Cream 28.35 GM TUBE 1 APPL TOPICAL (21:31)
[2021-10-05] MEDS: LORazepam 0.5 MG TABLET PO ×2 (05:52→13:33)
[2021-10-05 08:26] VITALS: BP 145/70; PULSE 70; RESP 18; TEMP 36.4; O2SAT 97
[2021-10-05] MEDS: lamoTRIgine 100 MG TABLET 200 MG PO ×2 (08:30→21:03)
[2021-10-05] MEDS: Brexpiprazole 1 MG TABLET 3 MG PO (08:32)
[2021-10-05] MEDS: Finasteride 5 MG TABLET PO (08:32)
[2021-10-05] MEDS: Vortioxetine Hydrobromide 10 MG TABLET PO (08:33)
[2021-10-05 08:34] VITALS: BP 145/70; PULSE 70
[2021-10-05] MEDS: Gabapentin 400 MG CAPSULE PO ×3 (08:34→21:04)
[2021-10-05] MEDS: Escitalopram Oxalate 5 MG TABLET PO (08:34)
[2021-10-05] MEDS: Multivitamin TABLET 1 TAB PO (08:34)
[2021-10-05] MEDS: lisinopriL 40 MG TABLET PO (08:34)
[2021-10-05 08:35] VITALS: BP 145/70; PULSE 70
[2021-10-05] MEDS: amLODIPine Besylate 10 MG TABLET PO (08:35)
--- NOTE | 2021-10-05 11:16 | P.CNHOSGPS_ITS ---
History of Present Illness Data of Consult Service Date: 10/05/21 Primary Care Provider: Wilmer Enciso MD [facility] Reason for consult: evaluation for ECT This is a 66 year old male with history of TBI, subdural hematoma, hypertension, depression admitted from [facility] for worsening depressive symptoms. The hospitalists were asked to see him in consultation for pre ECT evaluation. Patient has had ECT treatments in the past without any issue. It does not appear that anything has changed medically since his previous ECT treatments which were as recently as July. He has some intermittent shortness of breath which on his account has been ongoing for the past year or more and has been worked up by his PCP. He denies any cough. His PCP prescribed him an inhaler to use prn. Review of Systems Review of Systems: Yes all other systems are reviewed and are negative Constitutional: Constitutional: Denies chills and Denies fever(s) Cardiovascular: Cardiovascular: Denies chest pain Respiratory: Respiratory: Denies cough Gastrointestinal: Gastrointestinal: Denies abdominal pain [facility] Medical History (Updated 10/05/21 @ 12:23 by MICHELE Zhu) Alcohol use disorder, severe, in sustained remission Cognitive and neurobehavioral dysfunction following brain injury Hernia HTN (hypertension) Major depressive disorder, recurrent Major depressive disorder, recurrent severe without psychotic features Subdural hematoma TBI (traumatic brain injury) Pertinent family history: alcoholism in multiple family members Surgical History (Updated 10/05/21 @ 12:23 by MICHELE Zhu) H/O brain surgery H/O umbilical hernia repair History of hip replacement S/P cholecystectomy Social History Household Members: None Household Members Other:: Pt lives in a [facility] Housing: Other Housing Other:: [facility]. Do you presently have visiting nurse or other home services: No Alcohol intake: former Patient Tobacco Use Status: Never used Tobacco Use of substances other than those prescribed or required for medical reasons: No Currently Displaying Signs/Symptoms of Drug Intoxication Withdrawal: No Any prior treatment program specific to substance use: No Have you been hit, kicked, punched, or otherwise hurt by someone within the past year? If so, by whom?: No Do you feel safe in your current relationship?: No Current Relationship Is there a partner from a previous relationship who is making you feel unsafe now?: No Are you made to feel afraid or neglected: No [facility] Practices: [employer]. Advance Directives: No Advance Directives Information Provided: No Advance Directives Date on File: 05/27/19 Healthcare Proxy: Yes Guardian: No Do you have thoughts of harming others: None Do you have a plan to hurt others: No Plan Recently lost weight without trying: No How much weight loss: Not applicable Eating poorly because of decreased appetite: No Nutrition screen score: 0 Nutrition Risks: No Nutritional Risk Poor oral hygiene: No service: No Sexual orientation: Straight/Heterosexual Meds Allergies Allergy/AdvReac Type Severity Reaction Status Date / Time fentanyl [FENTANYL] Allergy Intermediate unknown Verified 05/22/21 11:43 Active Medications: Current Medications Acetaminophen (Acetaminophen 325 Mg Tablet) 650 mg PO Q6H PRN PRN Reason: Headache/Pain Mild Scale (1-3) Last Admin: 10/02/21 13:16 Dose: 650 mg Documented by: Acetaminophen (Acetaminophen 325 Mg Tablet) 650 mg PO Q6H PRN PRN Reason: Pain (Scale Score 1-3) Al Hydroxide/Mg Hydroxide (Magnesium Hydrox/Alum Hydrox 30 Ml Oral.Susp) 30 ml PO Q6H PRN PRN Reason: Heartburn/Nausea Albuterol Sulfate (Albuterol Sulfate 90 Mcg 8 Gm Inhaler) 2 puff INHALE Q6H PRN PRN Reason: Shortness Of Breath Amlodipine Besylate (Amlodipine Besylate 10 Mg Tablet) 10 mg PO DAILY [facility]; Protocol Last Admin: 10/05/21 08:35 Dose: 10 mg Documented by: Artificial Tears (Artificial Tears 15 Ml Drops) 1 drop EYE-BOTH Q1H PRN PRN Reason: Dry Eye(S) Last Admin: 10/02/21 13:21 Dose: 1 drop Documented by: Brexpiprazole (Brexpiprazole 1 Mg Tablet) 3 mg PO DAILY [facility] Last Admin: 10/05/21 08:32 Dose: 3 mg Documented by: Docusate Sodium (Docusate Sodium 100 Mg Capsule) 100 mg PO BEDTIME PRN PRN Reason: Constipation Last Admin: 10/03/21 20:35 Dose: 100 mg Documented by: Escitalopram Oxalate (Escitalopram Oxalate 5 Mg Tablet) 5 mg PO DAILY [facility] Last Admin: 10/05/21 08:34 Dose: 5 mg Documented by: Finasteride (Finasteride 5 Mg Tablet) 5 mg PO DAILY [facility] Last Admin: 10/05/21 08:32 Dose: 5 mg Documented by: Gabapentin (Gabapentin 400 Mg Capsule) 400 mg PO TID [facility] Last Admin: 10/05/21 08:34 Dose: 400 mg Documented by: Hydrocortisone (Hydrocortisone 1 % Cream 28.35 Gm Tube) 1 appl TOPICAL Q4H PRN; Protocol PRN Reason: RECTAL IRRITATION Last Admin: 10/04/21 21:31 Dose: 1 appl Documented by: Hydroxyzine HCl (Hydroxyzine Hcl 25 Mg Tablet) 25 mg PO BEDTIME PRN PRN Reason: Anxiety Ibuprofen (Ibuprofen 400 Mg Tablet) 400 mg PO Q6H PRN PRN Reason: Pain, Moderate (Pain Scale 4-6 Last Admin: 10/04/21 14:50 Dose: 400 mg Documented by: Lamotrigine (Lamotrigine 100 Mg Tablet) 200 mg PO BID [facility] Last Admin: 10/05/21 08:30 Dose: 200 mg Documented by: Latanoprost (Latanoprost 0.005 % Ophth No 2.5 Ml Drops) 1 drop EYE-BOTH BEDTIME [facility] Last Admin: 10/04/21 21:07 Dose: 1 drop Documented by: Lidocaine (Lidocaine 4 % Patch Adh..Patch) 1 patch TRANSDERMA DAILY [facility]; Protocol Last Admin: 10/04/21 15:48 Dose: Not Given Documented by: Lisinopril (Lisinopril 40 Mg Tablet) 40 mg PO DAILY [facility]; Protocol Last Admin: 10/05/21 08:34 Dose: 40 mg Documented by: Lorazepam (Lorazepam 0.5 Mg Tablet) 0.5 mg PO Q6H PRN PRN Reason: Anxiety Last Admin: 10/05/21 05:52 Dose: 0.5 mg Documented by: Magnesium Hydroxide (Milk Of Magnesia 30 Ml Oral.Susp) 30 ml PO DAILY PRN PRN Reason: Constipation Magnesium Hydroxide (Milk Of Magnesia 30 Ml Oral.Susp) 30 ml PO Q72H PRN PRN Reason: Constipation Melatonin (Melatonin 3 Mg Tablet) 6 mg PO BEDTIME [facility] Last Admin: 10/04/21 21:05 Dose: 6 mg Documented by: Miconazole Nitrate (Miconazole 2 % Extra Thick Cr 56.7 Gm Tube) 1 appl TOPICAL BID [facility]; Protocol Last Admin: 10/04/21 21:07 Dose: 1 appl Documented by: Mirtazapine (Mirtazapine 15 Mg Tablet) 45 mg PO BEDTIME [facility] Last Admin: 10/04/21 21:05 Dose: 45 mg Documented by: Multivitamins/Vitamin C (Multivitamin Tablet) 1 tab PO DAILY [facility] Last Admin: 10/05/21 08:34 Dose: 1 tab Documented by: Pharmacy Consult (Consult Rx Other Drug Dosing) 1 each MISCELLANE DAILY PRN PRN Reason: Consult order Polyethylene Glycol (Polyethylene Glycol 3350 17 Gm Powd.Pack) 17 gm PO DAILY PRN PRN Reason: Constipation Polyethylene Glycol (Polyethylene Glycol 3350 17 Gm Powd.Pack) 17 gm PO DAILY@1600 [facility] Last Admin: 10/04/21 14:56 Dose: 17 gm Documented by: Quetiapine Fumarate (Quetiapine Fumarate 25 Mg Tablet) 25 mg PO BID PRN PRN Reason: Anxiety Trazodone HCl (Trazodone Hcl 50 Mg Tablet) 50 mg PO BEDTIME PRN PRN Reason: Insomnia Last Admin: 10/01/21 23:41 Dose: 50 mg Documented by: Trazodone HCl (Trazodone Hcl 100 Mg Tablet) 300 mg PO BEDTIME [facility] Last Admin: 10/04/21 21:00 Dose: 300 mg Documented by: Vortioxetine (Vortioxetine Hydrobromide 10 Mg Tablet) 10 mg PO DAILY [facility] Last Admin: 10/05/21 08:33 Dose: 10 mg Documented by: Home Medications Medication Instructions Recorded Confirmed Last Taken Type clotrimazole 1 % topical solution See Rx Instructions .ROUTE 05/22/21 10/01/21 U nknown History .COMPLEX PRN dextromethorphan-guaifenesin 10 10 ml PO Q6H PRN 05/22/21 10/01/21 Unknown History mg-200 mg/5 mL oral liquid docusate sodium 100 mg capsule See Rx Instructions .ROUTE 05/22/21 10/01/21 Unknown History .COMPLEX PRN finasteride 5 mg tablet 1 tab PO DAILY 05/22/21 10/01/21 10/01/21 History latanoprost 0.005 % eye drops 1 drp OPHTHALMIC (EYE) BEDTIME 05/22/21 10/01/21 Unknown History magnesium hydroxide 400 mg/5 mL 2,400 mg PO Q72H PRN 05/22/21 10/01/21 Unknown History oral suspension (Milk of Magnesia) melatonin 5 mg tablet 5 mg PO BEDTIME 05/22/21 10/01/21 09/30/21 History avhjqgxsqxqa-gvdpddxh-iqbbpf tablet 1 tab PO DAILY 05/22/21 10/01/21 10/01/21 History polyethylene glycol 3350 17 17 g PO DAILY PRN 05/22/21 10/01/21 Unknown History gram/dose oral powder polyethylene glycol 3350 17 17 g PO DAILY@1600 05/22/21 10/01/21 Unknown History gram/dose oral powder psyllium husk 0.4 gram capsule 0.4 g PO DAILY 05/22/21 10/01/21 10/01/21 History (Metamucil) trazodone 150 mg tablet 2 tab PO BEDTIME 05/22/21 10/01/21 09/30/21 History acetaminophen 325 mg tablet 650 mg PO Q6H PRN 10/01/21 10/02/21 Unknown History albuterol sulfate 90 mcg/actuation 2 puff INHALATION Q6H PRN 10/01/21 10/01/21 Unknown History aerosol inhaler artifi.tears(hypromellose)(PF) 0.3 1 drp OPHTHALMIC (EYE) Q1H PRN 10/01/21 10/01/21 Unknown History % eye drops brexpiprazole 3 mg tablet (Rexulti) 1 tab PO DAILY 10/01/21 10/01/21 10/01/21 History guaifenesin 200 mg capsule 200 mg PO Q6H PRN 10/01/21 10/01/21 Unknown History hydrocortisone 1 % topical cream 1 appl TOPICAL Q4H PRN 10/01/21 10/01/21 Unk nown History lamotrigine 200 mg tablet 1 tab PO BID 10/01/21 10/01/21 10/01/21 History miconazole nitrate 2 % topical 1 appl TOPICAL BID 10/01/21 10/01/21 Unknown History cream mirtazapine 45 mg tablet 1 tab PO BEDTIME 10/01/21 10/01/21 Unknown History quetiapine 25 mg tablet 25 mg PO BID PRN 10/01/21 10/01/21 Unknown History vortioxetine 5 mg tablet 1 tab PO DAILY 10/01/21 10/01/21 10/01/21 History (Trintellix) Results Labs CBC and Chem 7: 10/01/21 19:18 10/01/21 19:18 Assessment and Plan (1) Depression: Status: Acute (2) HTN (hypertension): Status: Acute this is a 66 year old male with history of htn, tbi, subdural hematoma s/p evacuation, resident of [facility], admitted to inpatient psych floor for management of worsening depressive symptoms Has previously received ECT with no adverse outcomes. Poor functional capacity but no changes in medical condition since last ECT treatment. EKG unchanged from previous. No obvious contraindication to preceding as planned. thank you for allowing us to participate in the care of this patient. attending; dr. jones Physical Exam Vital Signs: Last Vital Signs Temp 97.5 F 10/05/21 08:26 Pulse 70 10/05/21 08:35 Resp 18 10/05/21 08:26 BP 145/70 H 10/05/21 08:35 Pulse Ox 97 10/05/21 08:26 Body Mass Index 30.2 Const General: comfortable, no acute distress, alert and awake Nutritional Appearance: well nourished Orientation/consciousness: patient oriented x3 HENMT Head: Yes normocephalic and Yes atraumatic Eyes Sclerae: sclerae normal Resp Effort & Inspection: normal respiratory effort and no respiratory distress Auscultation: clear to auscultation bilaterally, no rales, no rhonchi and no wheezes Cardio Rate: regular rate Rhythm: regular rhythm Neuro General: patient oriented x3 Cranial nerves: Yes CN's II-XII intact bilaterally and Yes Bilaterally intact EOM present Psych Speech and movement: Clear speech present Affect: Blunted affect present Attitude: cooperative
[2021-10-05] MEDS: Albuterol Sulfate 90 MCG 8 GM INHALER 2 PUFF INHALE ×2 (13:33→21:16)
[2021-10-05] MEDS: polyethylene glycoL 3350 17 GM POWD.PACK PO ×2 (14:15→15:53)
--- NOTE | 2021-10-05 16:22 | P.PNPSI_ITS ---
Subjective Subjective Date of Service: 10/05/21 Reason For Visit: MDD Service Interim History: Patient seen and discussed. I am not good. I am depressed as hell. I am suicidal. And no I wouldn't do it while I am here . Patient continues with helpless thought process. He is due for ECT Thursday. Sleep is good. Review of Systems Review of Systems Yes all other systems are reviewed and are negative Constitutional: Reports no additional constitutional complaints, Denies chills and Denies fever(s) Denies vertigo and Denies dizziness Cardiovascular: Reports no additional cardiovascular complaints and Denies chest pain Respiratory: Reports no additional respiratory complaints and Denies cough Gastrointestinal: Denies abdominal pain Denies vertigo and Denies dizziness Mental Status Exam Mental Status Exam Patient Appearance: Well Grooomed (Wheelchair bound) Patient Orientation: Person, Place, Time and Situation Level of Consciousness: Awake Patient Behavior: Cooperative Mood Description: Depressed Affect Description: Constricted Patient Cognition Impaired: No Ability to Follow Directions: Good Speech Pattern: Clear Memory Description: Intact Diagnostics Vital Signs (24Hr): Vital Signs - 24 hr 10/04/21 18:00 10/05/21 08:26 10/05/21 08:34 Temperature 97.4 F 97.5 F Pulse Rate 74 70 70 Respiratory Rate 20 18 Blood Pressure 111/58 L 145/70 H 145/70 H Pulse Oximetry 95 97 10/05/21 08:35 Temperature Pulse Rate 70 Respiratory Rate Blood Pressure 145/70 H Pulse Oximetry Body Mass Index 30.2 Labs Results: 10/01/21 19:18 10/01/21 19:18 Medications Medications Current Medications Acetaminophen (Acetaminophen 325 Mg Tablet) 650 mg PO Q6H PRN PRN Reason: Headache/Pain Mild Scale (1-3) Last Admin: 10/02/21 13:16 Dose: 650 mg Documented by: Acetaminophen (Acetaminophen 325 Mg Tablet) 650 mg PO Q6H PRN PRN Reason: Pain (Scale Score 1-3) Al Hydroxide/Mg Hydroxide (Magnesium Hydrox/Alum Hydrox 30 Ml Oral.Susp) 30 ml PO Q6H PRN PRN Reason: Heartburn/Nausea Albuterol Sulfate (Albuterol Sulfate 90 Mcg 8 Gm Inhaler) 2 puff INHALE Q6H PRN PRN Reason: Shortness Of Breath Last Admin: 10/05/21 13:33 Dose: 2 puff Documented by: Amlodipine Besylate (Amlodipine Besylate 10 Mg Tablet) 10 mg PO DAILY [facility]; Protocol Last Admin: 10/05/21 08:35 Dose: 10 mg Documented by: Artificial Tears (Artificial Tears 15 Ml Drops) 1 drop EYE-BOTH Q1H PRN PRN Reason: Dry Eye(S) Last Admin: 10/02/21 13:21 Dose: 1 drop Documented by: Brexpiprazole (Brexpiprazole 1 Mg Tablet) 3 mg PO DAILY [facility] Last Admin: 10/05/21 08:32 Dose: 3 mg Documented by: Docusate Sodium (Docusate Sodium 100 Mg Capsule) 100 mg PO BEDTIME PRN PRN Reason: Constipation Last Admin: 10/03/21 20:35 Dose: 100 mg Documented by: Escitalopram Oxalate (Escitalopram Oxalate 5 Mg Tablet) 5 mg PO DAILY [facility] Last Admin: 10/05/21 08:34 Dose: 5 mg Documented by: Finasteride (Finasteride 5 Mg Tablet) 5 mg PO DAILY [facility] Last Admin: 10/05/21 08:32 Dose: 5 mg Documented by: Gabapentin (Gabapentin 400 Mg Capsule) 400 mg PO TID [facility] Last Admin: 10/05/21 15:53 Dose: 400 mg Documented by: Hydrocortisone (Hydrocortisone 1 % Cream 28.35 Gm Tube) 1 appl TOPICAL Q4H PRN; Protocol PRN Reason: RECTAL IRRITATION Last Admin: 10/04/21 21:31 Dose: 1 appl Documented by: Hydroxyzine HCl (Hydroxyzine Hcl 25 Mg Tablet) 25 mg PO BEDTIME PRN PRN Reason: Anxiety Ibuprofen (Ibuprofen 400 Mg Tablet) 400 mg PO Q6H PRN PRN Reason: Pain, Moderate (Pain Scale 4-6 Last Admin: 10/04/21 14:50 Dose: 400 mg Documented by: Lamotrigine (Lamotrigine 100 Mg Tablet) 200 mg PO BID [facility] Last Admin: 10/05/21 08:30 Dose: 200 mg Documented by: Latanoprost (Latanoprost 0.005 % Ophth No 2.5 Ml Drops) 1 drop EYE-BOTH BEDTIME [facility] Last Admin: 10/04/21 21:07 Dose: 1 drop Documented by: Lidocaine (Lidocaine 4 % Patch Adh..Patch) 1 patch TRANSDERMA DAILY [facility]; Protocol Last Admin: 10/04/21 15:48 Dose: Not Given Documented by: Lisinopril (Lisinopril 40 Mg Tablet) 40 mg PO DAILY [facility]; Protocol Last Admin: 10/05/21 08:34 Dose: 40 mg Documented by: Lorazepam (Lorazepam 0.5 Mg Tablet) 0.5 mg PO Q6H PRN PRN Reason: Anxiety Last Admin: 10/05/21 13:33 Dose: 0.5 mg Documented by: Magnesium Hydroxide (Milk Of Magnesia 30 Ml Oral.Susp) 30 ml PO DAILY PRN PRN Reason: Constipation Magnesium Hydroxide (Milk Of Magnesia 30 Ml Oral.Susp) 30 ml PO Q72H PRN PRN Reason: Constipation Melatonin (Melatonin 3 Mg Tablet) 6 mg PO BEDTIME [facility] Last Admin: 10/04/21 21:05 Dose: 6 mg Documented by: Miconazole Nitrate (Miconazole 2 % Extra Thick Cr 56.7 Gm Tube) 1 appl TOPICAL BID [facility]; Protocol Last Admin: 10/05/21 14:20 Dose: Not Given Documented by: Mirtazapine (Mirtazapine 15 Mg Tablet) 45 mg PO BEDTIME [facility] Last Admin: 10/04/21 21:05 Dose: 45 mg Documented by: Multivitamins/Vitamin C (Multivitamin Tablet) 1 tab PO DAILY [facility] Last Admin: 10/05/21 08:34 Dose: 1 tab Documented by: Pharmacy Consult (Consult Rx Other Drug Dosing) 1 each MISCELLANE DAILY PRN PRN Reason: Consult order Polyethylene Glycol (Polyethylene Glycol 3350 17 Gm Powd.Pack) 17 gm PO DAILY PRN PRN Reason: Constipation Last Admin: 10/05/21 15:53 Dose: 17 gm Documented by: Polyethylene Glycol (Polyethylene Glycol 3350 17 Gm Powd.Pack) 17 gm PO DAILY@1600 [facility] Last Admin: 10/04/21 14:56 Dose: 17 gm Documented by: Quetiapine Fumarate (Quetiapine Fumarate 25 Mg Tablet) 25 mg PO BID PRN PRN Reason: Anxiety Trazodone HCl (Trazodone Hcl 50 Mg Tablet) 50 mg PO BEDTIME PRN PRN Reason: Insomnia Last Admin: 10/01/21 23:41 Dose: 50 mg Documented by: Trazodone HCl (Trazodone Hcl 100 Mg Tablet) 300 mg PO BEDTIME [facility] Last Admin: 10/04/21 21:00 Dose: 300 mg Documented by: Vortioxetine (Vortioxetine Hydrobromide 10 Mg Tablet) 10 mg PO DAILY [facility] Last Admin: 10/05/21 08:33 Dose: 10 mg Documented by: Allergies Allergies Allergy/AdvReac Type Severity Reaction Status Date / Time fentanyl [FENTANYL] Allergy Intermediate unknown Verified 05/22/21 11:43 Assessment & Plan Assessment & Plan (1) Depression: Status: Acute Code(s): F32.A - Depression, unspecified Assessment and Plan: The patient is an elderly male with a long history of major depressive disorder and TBI, admitted before, very well known by the service.? He has been admitted for exacerbation of depression with suicidal ideation without a clear stressor.? Historically, the patient responds to ECT. Plan 1. Gather collateral information from the [facility]. 2. Continue same antidepressants.? (2) HTN (hypertension): Status: Acute Code(s): I10 - Essential (primary) hypertension Assessment and Plan: this is a 66 year old male with history of htn, tbi, subdural hematoma s/p evacuation, resident of [facility], admitted to inpatient psych floor for management of worsening depressive symptoms Has previously received ECT with no adverse outcomes. Poor functional capacity but no changes in medical condition since last ECT treatment. EKG unchanged from previous. No obvious contraindication to preceding as planned. thank you for allowing us to participate in the care of this patient. attending; dr. jones I spent minutes with the patient and/or on the patient floor today, greater than?50% of which was spent counseling/coordinating care. Reason for contiued inpatient stay Substantial Risk for: harm to self and rapid decompensation
[2021-10-05 19:33] VITALS: BP 130/70; PULSE 68; RESP 18; TEMP 36.6; O2SAT 96
[2021-10-05] MEDS: Mirtazapine 15 MG TABLET 45 MG PO (21:03)
[2021-10-05] MEDS: Melatonin 3 MG TABLET 6 MG PO (21:04)
[2021-10-05] MEDS: traZODone HCL 100 MG TABLET 300 MG PO (21:04)
[2021-10-05] MEDS: Miconazole 2 % Extra Thick Cr 56.7 Gm Tube 1 APPL TOPICAL (21:04)
[2021-10-05] MEDS: Latanoprost 0.005 % Ophth Sol 2.5 ML DROPS 1 DROP EYE-BOTH (21:05)
[2021-10-06] MEDS: LORazepam 0.5 MG TABLET PO ×2 (02:58→15:18)
[2021-10-06 06:00] VITALS: BP 149/73; PULSE 69; TEMP 36.8; O2SAT 96
[2021-10-06] MEDS: Escitalopram Oxalate 5 MG TABLET PO (08:47)
[2021-10-06] MEDS: lamoTRIgine 100 MG TABLET 200 MG PO (08:47)
[2021-10-06] MEDS: Brexpiprazole 1 MG TABLET 3 MG PO (08:47)
[2021-10-06] MEDS: Gabapentin 400 MG CAPSULE PO ×2 (08:47→15:18)
[2021-10-06] MEDS: Multivitamin TABLET 1 TAB PO (08:47)
[2021-10-06] MEDS: Vortioxetine Hydrobromide 10 MG TABLET PO (08:47)
[2021-10-06 08:48] VITALS: BP 149/73; PULSE 69
[2021-10-06] MEDS: lisinopriL 40 MG TABLET PO (08:48)
[2021-10-06] MEDS: amLODIPine Besylate 10 MG TABLET PO (08:48)
[2021-10-06] MEDS: Finasteride 5 MG TABLET PO (08:49)
[2021-10-06] MEDS: Ibuprofen 400 MG TABLET PO (08:59)
--- NOTE | 2021-10-06 13:35 | P.PNPSI_ITS ---
Subjective Subjective Date of Service: 10/06/21 Reason For Visit: MDD Service Interim History: Patient seen and discussed. Patient remains depressed and reports SI. Looking forward to starting ECT tomorrow. Will hold GBP and Lamictal tonight. Patient continues with helpless thought process. Sleep is good. Review of Systems Review of Systems Yes all other systems are reviewed and are negative Constitutional: Reports no additional constitutional complaints, Denies chills and Denies fever(s) Denies vertigo and Denies dizziness Cardiovascular: Reports no additional cardiovascular complaints and Denies chest pain Respiratory: Reports no additional respiratory complaints and Denies cough Gastrointestinal: Denies abdominal pain Denies vertigo and Denies dizziness Mental Status Exam Mental Status Exam Patient Appearance: Well Grooomed (Wheelchair bound) Patient Orientation: Person, Place, Time and Situation Level of Consciousness: Awake Patient Behavior: Cooperative Mood Description: Depressed Affect Description: Constricted Patient Cognition Impaired: No Ability to Follow Directions: Good Speech Pattern: Clear Memory Description: Intact Diagnostics Vital Signs (24Hr): Vital Signs - 24 hr 10/06/21 06:00 10/06/21 08:48 Temperature 98.2 F Pulse Rate 69 69 Blood Pressure 149/73 H 149/73 H Pulse Oximetry 96 Body Mass Index 30.2 Labs Results: 10/01/21 19:18 10/01/21 19:18 Medications Medications Current Medications Acetaminophen (Acetaminophen 325 Mg Tablet) 650 mg PO Q6H PRN PRN Reason: Headache/Pain Mild Scale (1-3) Last Admin: 10/02/21 13:16 Dose: 650 mg Documented by: Acetaminophen (Acetaminophen 325 Mg Tablet) 650 mg PO Q6H PRN PRN Reason: Pain (Scale Score 1-3) Al Hydroxide/Mg Hydroxide (Magnesium Hydrox/Alum Hydrox 30 Ml Oral.Susp) 30 ml PO Q6H PRN PRN Reason: Heartburn/Nausea Albuterol Sulfate (Albuterol Sulfate 90 Mcg 8 Gm Inhaler) 2 puff INHALE Q6H PRN PRN Reason: Shortness Of Breath Last Admin: 10/06/21 15:18 Dose: 2 puff Documented by: Amlodipine Besylate (Amlodipine Besylate 10 Mg Tablet) 10 mg PO DAILY [facility]; Protocol Last Admin: 10/06/21 08:48 Dose: 10 mg Documented by: Artificial Tears (Artificial Tears 15 Ml Drops) 1 drop EYE-BOTH Q1H PRN PRN Reason: Dry Eye(S) Last Admin: 10/02/21 13:21 Dose: 1 drop Documented by: Brexpiprazole (Brexpiprazole 1 Mg Tablet) 3 mg PO DAILY [facility] Last Admin: 10/06/21 08:47 Dose: 3 mg Documented by: Docusate Sodium (Docusate Sodium 100 Mg Capsule) 100 mg PO BEDTIME PRN PRN Reason: Constipation Last Admin: 10/03/21 20:35 Dose: 100 mg Documented by: Escitalopram Oxalate (Escitalopram Oxalate 5 Mg Tablet) 5 mg PO DAILY [facility] Last Admin: 10/06/21 08:47 Dose: 5 mg Documented by: Finasteride (Finasteride 5 Mg Tablet) 5 mg PO DAILY [facility] Last Admin: 10/06/21 08:49 Dose: 5 mg Documented by: Gabapentin (Gabapentin 400 Mg Capsule) 400 mg PO TID [facility] Last Admin: 10/06/21 15:18 Dose: 400 mg Documented by: Hydrocortisone (Hydrocortisone 1 % Cream 28.35 Gm Tube) 1 appl TOPICAL Q4H PRN; Protocol PRN Reason: RECTAL IRRITATION Last Admin: 10/04/21 21:31 Dose: 1 appl Documented by: Hydroxyzine HCl (Hydroxyzine Hcl 25 Mg Tablet) 25 mg PO BEDTIME PRN PRN Reason: Anxiety Ibuprofen (Ibuprofen 400 Mg Tablet) 400 mg PO Q6H PRN PRN Reason: Pain, Moderate (Pain Scale 4-6 Last Admin: 10/06/21 08:59 Dose: 400 mg Documented by: Lamotrigine (Lamotrigine 100 Mg Tablet) 200 mg PO BID [facility] Last Admin: 10/06/21 08:47 Dose: 200 mg Documented by: Latanoprost (Latanoprost 0.005 % Ophth No 2.5 Ml Drops) 1 drop EYE-BOTH BEDTIME [facility] Last Admin: 10/05/21 21:05 Dose: 1 drop Documented by: Lidocaine (Lidocaine 4 % Patch Adh..Patch) 1 patch TRANSDERMA DAILY [facility]; Protocol Last Admin: 10/06/21 10:07 Dose: Not Given Documented by: Lisinopril (Lisinopril 40 Mg Tablet) 40 mg PO DAILY [facility]; Protocol Last Admin: 10/06/21 08:48 Dose: 40 mg Documented by: Lorazepam (Lorazepam 0.5 Mg Tablet) 0.5 mg PO Q6H PRN PRN Reason: Anxiety Last Admin: 10/06/21 15:18 Dose: 0.5 mg Documented by: Magnesium Hydroxide (Milk Of Magnesia 30 Ml Oral.Susp) 30 ml PO DAILY PRN PRN Reason: Constipation Magnesium Hydroxide (Milk Of Magnesia 30 Ml Oral.Susp) 30 ml PO Q72H PRN PRN Reason: Constipation Melatonin (Melatonin 3 Mg Tablet) 6 mg PO BEDTIME [facility] Last Admin: 10/05/21 21:04 Dose: 6 mg Documented by: Miconazole Nitrate (Miconazole 2 % Extra Thick Cr 56.7 Gm Tube) 1 appl TOPICAL BID [facility]; Protocol Last Admin: 10/06/21 10:07 Dose: Not Given Documented by: Mirtazapine (Mirtazapine 15 Mg Tablet) 45 mg PO BEDTIME [facility] Last Admin: 10/05/21 21:03 Dose: 45 mg Documented by: Multivitamins/Vitamin C (Multivitamin Tablet) 1 tab PO DAILY [facility] Last Admin: 10/06/21 08:47 Dose: 1 tab Documented by: Pharmacy Consult (Consult Rx Other Drug Dosing) 1 each MISCELLANE DAILY PRN PRN Reason: Consult order Polyethylene Glycol (Polyethylene Glycol 3350 17 Gm Powd.Pack) 17 gm PO DAILY PRN PRN Reason: Constipation Last Admin: 10/05/21 15:53 Dose: 17 gm Documented by: Polyethylene Glycol (Polyethylene Glycol 3350 17 Gm Powd.Pack) 17 gm PO DAILY@1600 [facility] Last Admin: 10/06/21 17:33 Dose: Not Given Documented by: Quetiapine Fumarate (Quetiapine Fumarate 25 Mg Tablet) 25 mg PO BID PRN PRN Reason: Anxiety Trazodone HCl (Trazodone Hcl 50 Mg Tablet) 50 mg PO BEDTIME PRN PRN Reason: Insomnia Last Admin: 10/01/21 23:41 Dose: 50 mg Documented by: Trazodone HCl (Trazodone Hcl 100 Mg Tablet) 300 mg PO BEDTIME [facility] Last Admin: 10/05/21 21:04 Dose: 300 mg Documented by: Vortioxetine (Vortioxetine Hydrobromide 10 Mg Tablet) 10 mg PO DAILY [facility] Last Admin: 10/06/21 08:47 Dose: 10 mg Documented by: Allergies Allergies Allergy/AdvReac Type Severity Reaction Status Date / Time fentanyl [FENTANYL] Allergy Intermediate unknown Verified 05/22/21 11:43 Assessment & Plan Assessment & Plan (1) Depression: Status: Acute Code(s): F32.A - Depression, unspecified Assessment and Plan: The patient is an elderly male with a long history of major depressive disorder and TBI, admitted before, very well known by the service.? He has been admitted for exacerbation of depression with suicidal ideation without a clear stressor.? Historically, the patient responds to ECT. Plan 1. Gather collateral information from the [facility]. 2. Continue same antidepressants.? - ECT tomorrow. (2) HTN (hypertension): Status: Acute Code(s): I10 - Essential (primary) hypertension Assessment and Plan: this is a 66 year old male with history of htn, tbi, subdural hematoma s/p evacuation, resident of [facility], admitted to inpatient psych floor for management of worsening depressive symptoms Has previously received ECT with no adverse outcomes. Poor functional capacity but no changes in medical condition since last ECT treatment. EKG unchanged from previous. No obvious contraindication to preceding as planned. thank you for allowing us to participate in the care of this patient. attending; dr. jones I spent minutes with the patient and/or on the patient floor today, greater than?50% of which was spent counseling/coordinating care. Reason for contiued inpatient stay Substantial Risk for: harm to self, inability to function and rapid decompensation
[2021-10-06] MEDS: Albuterol Sulfate 90 MCG 8 GM INHALER 2 PUFF INHALE ×2 (15:18→20:41)
[2021-10-06 20:05] VITALS: PULSE 70; RESP 20; TEMP 36.4; O2SAT 96
[2021-10-06] MEDS: Latanoprost 0.005 % Ophth Sol 2.5 ML DROPS 1 DROP EYE-BOTH (20:26)
[2021-10-06] MEDS: Miconazole 2 % Extra Thick Cr 56.7 Gm Tube 1 APPL TOPICAL (20:27)
[2021-10-06] MEDS: Melatonin 3 MG TABLET 6 MG PO (20:27)
[2021-10-06] MEDS: traZODone HCL 100 MG TABLET 300 MG PO (20:27)
[2021-10-06] MEDS: Mirtazapine 15 MG TABLET 45 MG PO (20:27)
[2021-10-06] MEDS: Acetaminophen 325 MG TABLET 650 MG PO (20:30)
[2021-10-07] VITALS (11 sets, daily range): BP systolic 143–179; BP diastolic 74–97; PULSE 64–74; RESP 16–23; TEMP 36.1–36.9; O2SAT 95–97
[2021-10-07] MEDS: Ibuprofen 400 MG TABLET PO ×2 (02:18→20:59)
[2021-10-07] MEDS: lisinopriL 40 MG TABLET PO (05:35)
[2021-10-07] MEDS: amLODIPine Besylate 10 MG TABLET PO (05:37)
--- NOTE | 2021-10-07 06:57 | HO.ANESPROP2 ---
[facility] Active Problems Active Problems: All Active Problems (Updated 10/05/21 @ 12:23 by MICHELE Zhu) Depression (Acute) Suicidal ideation (Acute) Major depressive disorder, recurrent severe without psychotic features (Acute) Cognitive and neurobehavioral dysfunction following brain injury (Acute) HTN (hypertension) (Acute) Past Medical History Medical History (Updated 10/05/21 @ 12:23 by MICHELE Zhu) Alcohol use disorder, severe, in sustained remission Cognitive and neurobehavioral dysfunction following brain injury Hernia HTN (hypertension) Major depressive disorder, recurrent Major depressive disorder, recurrent severe without psychotic features Subdural hematoma TBI (traumatic brain injury) Family History Family history of problems with anesthesia: No Surgical History Surgical History (Updated 10/05/21 @ 12:23 by MICHELE Zhu) H/O brain surgery H/O umbilical hernia repair History of hip replacement S/P cholecystectomy History of Problems with Anesthesia: No Social History Social History Household Members: None Household Members Other:: Pt lives in a long-term Housing: Other Housing Other:: long-term. Do you presently have visiting nurse or other home services: No Alcohol intake: former Patient Tobacco Use Status: Never used Tobacco Use of substances other than those prescribed or required for medical reasons: No Currently Displaying Signs/Symptoms of Drug Intoxication Withdrawal: No Any prior treatment program specific to substance use: No Have you been hit, kicked, punched, or otherwise hurt by someone within the past year? If so, by whom?: No Do you feel safe in your current relationship?: No Current Relationship Is there a partner from a previous relationship who is making you feel unsafe now?: No Are you made to feel afraid or neglected: No Rastafari Healthcare Practices: Taoist. Advance Directives: No Advance Directives Information Provided: No Advance Directives Date on File: 05/27/19 Healthcare Proxy: Yes Guardian: No Do you have thoughts of harming others: None Do you have a plan to hurt others: No Plan Recently lost weight without trying: No How much weight loss: Not applicable Eating poorly because of decreased appetite: No Nutrition screen score: 0 Nutrition Risks: No Nutritional Risk Poor oral hygiene: No service: No Sexual orientation: Straight/Heterosexual Meds Allergies Allergy/AdvReac Type Severity Reaction Status Date / Time fentanyl [FENTANYL] Allergy Intermediate unknown Verified 05/22/21 11:43 Active Medications: Current Medications Acetaminophen (Acetaminophen 325 Mg Tablet) 650 mg PO Q6H PRN PRN Reason: Headache/Pain Mild Scale (1-3) Last Admin: 10/06/21 20:30 Dose: 650 mg Documented by: Acetaminophen (Acetaminophen 325 Mg Tablet) 650 mg PO Q6H PRN PRN Reason: Pain (Scale Score 1-3) Al Hydroxide/Mg Hydroxide (Magnesium Hydrox/Alum Hydrox 30 Ml Oral.Susp) 30 ml PO Q6H PRN PRN Reason: Heartburn/Nausea Albuterol Sulfate (Albuterol Sulfate 90 Mcg 8 Gm Inhaler) 2 puff INHALE Q6H PRN PRN Reason: Shortness Of Breath Last Admin: 10/06/21 20:41 Dose: 2 puff Documented by: Amlodipine Besylate (Amlodipine Besylate 10 Mg Tablet) 10 mg PO DAILY [facility]; Protocol Last Admin: 10/07/21 05:37 Dose: 10 mg Documented by: Artificial Tears (Artificial Tears 15 Ml Drops) 1 drop EYE-BOTH Q1H PRN PRN Reason: Dry Eye(S) Last Admin: 10/02/21 13:21 Dose: 1 drop Documented by: Brexpiprazole (Brexpiprazole 1 Mg Tablet) 3 mg PO DAILY [facility] Last Admin: 10/06/21 08:47 Dose: 3 mg Documented by: Docusate Sodium (Docusate Sodium 100 Mg Capsule) 100 mg PO BEDTIME PRN PRN Reason: Constipation Last Admin: 10/03/21 20:35 Dose: 100 mg Documented by: Escitalopram Oxalate (Escitalopram Oxalate 5 Mg Tablet) 5 mg PO DAILY [facility] Last Admin: 10/06/21 08:47 Dose: 5 mg Documented by: Finasteride (Finasteride 5 Mg Tablet) 5 mg PO DAILY [facility] Last Admin: 10/06/21 08:49 Dose: 5 mg Documented by: Gabapentin (Gabapentin 400 Mg Capsule) 400 mg PO TID [facility] Last Admin: 10/06/21 20:48 Dose: Not Given Documented by: Hydrocortisone (Hydrocortisone 1 % Cream 28.35 Gm Tube) 1 appl TOPICAL Q4H PRN; Protocol PRN Reason: RECTAL IRRITATION Last Admin: 10/04/21 21:31 Dose: 1 appl Documented by: Hydroxyzine HCl (Hydroxyzine Hcl 25 Mg Tablet) 25 mg PO BEDTIME PRN PRN Reason: Anxiety Ibuprofen (Ibuprofen 400 Mg Tablet) 400 mg PO Q6H PRN PRN Reason: Pain, Moderate (Pain Scale 4-6 Last Admin: 10/07/21 02:18 Dose: 400 mg Documented by: Lamotrigine (Lamotrigine 100 Mg Tablet) 200 mg PO BID [facility] Last Admin: 10/06/21 20:48 Dose: Not Given Documented by: Latanoprost (Latanoprost 0.005 % Ophth No 2.5 Ml Drops) 1 drop EYE-BOTH BEDTIME [facility] Last Admin: 10/06/21 20:26 Dose: 1 drop Documented by: Lidocaine (Lidocaine 4 % Patch Adh..Patch) 1 patch TRANSDERMA DAILY [facility]; Protocol Last Admin: 10/06/21 10:07 Dose: Not Given Documented by: Lisinopril (Lisinopril 40 Mg Tablet) 40 mg PO DAILY [facility]; Protocol Last Admin: 10/07/21 05:35 Dose: 40 mg Documented by: Lorazepam (Lorazepam 0.5 Mg Tablet) 0.5 mg PO Q6H PRN PRN Reason: Anxiety Last Admin: 10/06/21 15:18 Dose: 0.5 mg Documented by: Magnesium Hydroxide (Milk Of Magnesia 30 Ml Oral.Susp) 30 ml PO DAILY PRN PRN Reason: Constipation Magnesium Hydroxide (Milk Of Magnesia 30 Ml Oral.Susp) 30 ml PO Q72H PRN PRN Reason: Constipation Melatonin (Melatonin 3 Mg Tablet) 6 mg PO BEDTIME [facility] Last Admin: 10/06/21 20:27 Dose: 6 mg Documented by: Miconazole Nitrate (Miconazole 2 % Extra Thick Cr 56.7 Gm Tube) 1 appl TOPICAL BID [facility]; Protocol Last Admin: 10/06/21 20:27 Dose: 1 appl Documented by: Mirtazapine (Mirtazapine 15 Mg Tablet) 45 mg PO BEDTIME [facility] Last Admin: 10/06/21 20:27 Dose: 45 mg Documented by: Multivitamins/Vitamin C (Multivitamin Tablet) 1 tab PO DAILY [facility] Last Admin: 10/06/21 08:47 Dose: 1 tab Documented by: Pharmacy Consult (Consult Rx Other Drug Dosing) 1 each MISCELLANE DAILY PRN PRN Reason: Consult order Polyethylene Glycol (Polyethylene Glycol 3350 17 Gm Powd.Pack) 17 gm PO DAILY PRN PRN Reason: Constipation Last Admin: 10/05/21 15:53 Dose: 17 gm Documented by: Polyethylene Glycol (Polyethylene Glycol 3350 17 Gm Powd.Pack) 17 gm PO DAILY@1600 [facility] Last Admin: 10/06/21 17:33 Dose: Not Given Documented by: Quetiapine Fumarate (Quetiapine Fumarate 25 Mg Tablet) 25 mg PO BID PRN PRN Reason: Anxiety Trazodone HCl (Trazodone Hcl 50 Mg Tablet) 50 mg PO BEDTIME PRN PRN Reason: Insomnia Last Admin: 10/01/21 23:41 Dose: 50 mg Documented by: Trazodone HCl (Trazodone Hcl 100 Mg Tablet) 300 mg PO BEDTIME [facility] Last Admin: 10/06/21 20:27 Dose: 300 mg Documented by: Vortioxetine (Vortioxetine Hydrobromide 10 Mg Tablet) 10 mg PO DAILY [facility] Last Admin: 10/06/21 08:47 Dose: 10 mg Documented by: Home Medications Medication Instructions Recorded Confirmed Last Taken Type clotrimazole 1 % topical solution See Rx Instructions .ROUTE 05/22/21 10/01/21 Unknown History .COMPLEX PRN dextromethorphan-guaifenesin 10 10 ml PO Q6H PRN 05/22/21 10/01/21 Unknown History mg-200 mg/5 mL oral liquid docusate sodium 100 mg capsule See Rx Instructions .ROUTE 05/22/21 10/01/21 Unknown History .COMPLEX PRN finasteride 5 mg tablet 1 tab PO DAILY 05/22/21 10/01/21 10/01/21 History latanoprost 0.005 % eye drops 1 drp OPHTHALMIC (EYE) BEDTIME 05/22/21 10/01/21 Unknown History magnesium hydroxide 400 mg/5 mL 2,400 mg PO Q72H PRN 05/22/21 10/01/21 Unknown History oral suspension (Milk of Magnesia) melatonin 5 mg tablet 5 mg PO BEDTIME 05/22/21 10/01/21 09/30/21 History ribmzshjuhgn-kxlwqjku-nnzjxh tablet 1 tab PO DAILY 05/22/21 10/01/21 10/01/21 History polyethylene glycol 3350 17 17 g PO DAILY PRN 05/22/21 10/01/21 Unknown History gram/dose oral powder polyethylene glycol 3350 17 17 g PO DAILY@1600 07/07/21 11/16/21 Unknown History gram/dose oral powder psyllium husk 0.4 gram capsule 0.4 g PO DAILY 05/22/21 10/01/21 10/01/21 History (Metamucil) trazodone 150 mg tablet 2 tab PO BEDTIME 05/22/21 10/01/21 09/30/21 History acetaminophen 325 mg tablet 650 mg PO Q6H PRN 10/01/21 10/02/21 Unknown History albuterol sulfate 90 mcg/actuation 2 puff INHALATION Q6H PRN 10/01/21 10/01/21 Unknown History aerosol inhaler artifi.tears(hypromellose)(PF) 0.3 1 drp OPHTHALMIC (EYE) Q1H PRN 10/01/21 10/01/21 Unknown History % eye drops brexpiprazole 3 mg tablet (Rexulti) 1 tab PO DAILY 10/01/21 10/01/21 10/01/21 History guaifenesin 200 mg capsule 200 mg PO Q6H PRN 10/01/21 10/01/21 Unknown History hydrocortisone 1 % topical cream 1 appl TOPICAL Q4H PRN 10/01/21 10/01/21 Unknown History lamotrigine 200 mg tablet 1 tab PO BID 10/01/21 10/01/21 10/01/21 History miconazole nitrate 2 % topical 1 appl TOPICAL BID 10/01/21 10/01/21 Unknown History cream mirtazapine 45 mg tablet 1 tab PO BEDTIME 10/01/21 10/01/21 Unknown History quetiapine 25 mg tablet 25 mg PO BID PRN 10/01/21 10/01/21 Unknown History vortioxetine 5 mg tablet 1 tab PO DAILY 10/01/21 10/01/21 10/01/21 History (Trintellix) Exam Exam Date and Time: October 07, 2021 0657 Height,Weight and Vital Signs: Height 6 ft 2 in Weight 106.8 kg Last Vital Signs Temp 96.9 F 10/07/21 05:35 Pulse 72 10/07/21 05:37 Resp 19 10/07/21 05:35 BP 158/87 H 10/07/21 05:37 Pulse Ox 97 10/07/21 05:35 Pertinent Lab Results Pertinent Lab Results: Laboratory Tests 10/01/21 10/01/21 10/01/21 19:18 19:18 20:03 WBC 5.9 RBC 4.34 L Hgb 14.1 Hct 42.1 MCV 97.0 MCH 32.5 MCHC 33.5 RDW 11.7 Plt Count 146 L MPV 10.1 Immature Gran % (Auto) 0.5 H Neut % (Auto) 59.8 Lymph % (Auto) 29.3 Nicholas % (Auto) 4.8 Eos % (Auto) 5.3 H Baso % (Auto) 0.3 Lymph # (Auto) 1.7 Nicholas # (Auto) 0.3 Eos # (Auto) 0.3 Baso # (Auto) 0.0 Abs Immat Gran (auto) 0.03 Absolute Neuts (auto) 3.5 Absolute Nucleated RBC 0.000 Nucleated RBC % (auto) 0.0 Sodium 139 Potassium 4.3 Chloride 103 Carbon Dioxide 27 Anion Gap 13 BUN 17 H Creatinine 1.06 Estim Creat Clear Calc 90.0 Estimated GFR > 60 Random Glucose 154 H D Calcium 9.3 Total Bilirubin 0.3 AST 27 ALT 43 H Alkaline Phosphatase 72 Total Protein 6.9 Albumin 4.5 Urine Color Urine Appearance Urine pH Ur Specific [place] Urine Protein Urine Glucose (UA) Urine Ketones Urine Blood Urine Nitrite Ur Leukocyte Esterase Urine RBC Urine WBC Ur Squamous Epith Cells Urine Bacteria Hyaline Casts Urine Mucus Urine Opiates Screen Urine Fentanyl Screen Ur Barbiturates Screen Ur Phencyclidine Scrn Ur Amphetamines Screen U Benzodiazepines Scrn Urine Cocaine Screen U Marijuana (THC) Screen COVID-19 ([facility]) Negative COVID-19 Clin Com See Note 10/03/21 10/03/21 05:50 05:50 WBC RBC Hgb Hct MCV MCH MCHC RDW Plt Count MPV Immature Gran % (Auto) Neut % (Auto) Lymph % (Auto) Nicholas % (Auto) Eos % (Auto) Baso % (Auto) Lymph # (Auto) Nicholas # (Auto) Eos # (Auto) Baso # (Auto) Abs Immat Gran (auto) Absolute Neuts (auto) Absolute Nucleated RBC Nucleated RBC % (auto) Sodium Potassium Chloride Carbon Dioxide Anion Gap BUN Creatinine Estim Creat Clear Calc Estimated GFR Random Glucose Calcium Total Bilirubin AST ALT Alkaline Phosphatase Total Protein Albumin Urine Color YELLOW Urine Appearance CLEAR Urine pH 6.0 Ur Specific [place] 1.015 Urine Protein NEG Urine Glucose (UA) NEG Urine Ketones NEG Urine Blood NEG Urine Nitrite NEG Ur Leukocyte Esterase NEG Urine RBC 0-2 Urine WBC 0 Ur Squamous Epith Cells 2+ Urine Bacteria TRACE Hyaline Casts 5-9 Urine Mucus 2+ Urine Opiates Screen Not Detected Urine Fentanyl Screen Not Detected Ur Barbiturates Screen Not Detected Ur Phencyclidine Scrn Not Detected Ur Amphetamines Screen Not Detected U Benzodiazepines Scrn Not Detected Urine Cocaine Screen Not Detected U Marijuana (THC) Screen Not Detected COVID-19 ([facility]) COVID-19 Clin Com Airway Mallampati Class: II TM Dist: >3cm Neck ROM: Full Heart: rrr Lungs: cta Assessment and Plan Final Anesthetic Review Family History of Problems with Anesthesia: No History of Problems with Anesthesia: No
[2021-10-07] MEDS: Lactated Ringers 1,000 ML 50 ML IVCONT (07:17)
--- NOTE | 2021-10-07 07:45 | P.HPSUR_ITS ---
Pre-Procedural Eval Section A Date of Service: 10/07/21 The patient is an INPATIENT: Yes Changes since office visit: No Cold of Flu in the past 2 weeks, No New Medical Problems, No Changes in Medication and No Patient answered all questions The History & Physical has been completed within 30 days and I have reviewed it.: Yes Section B Chief Complaint: MDD Service Details of Present Illness: The patient reported exacerbation of depression with suicidal ideation after medication change. Admitted into psychiatry and ECT re- started Relevant Family History (Specify if Yes): No Relevant Social History: Other (specify) (past history of alcohol) Present Medications: see Short Stay Collaborative assessment Medical History: Significant History (history of TBI) History of Previous Operations: No relevant previous surgery Allergies: Allergies Allergy/AdvReac Type Severity Reaction Status Date / Time fentanyl [FENTANYL] Allergy Intermediate unknown Verified 05/22/21 11:43 Review of Systems Sugical H&P ROS: Negative: Respiratory, Neurological, Hem-Onc, Allergic/Immunologic, Gastrointestinal, Genitourinary, Musculoskeletal, Integumentary, Endocrine and Eyes/Ears/Nose/Throat and Yes, Specify: Constitution (obesity), Cardiovascular (HTN) and Psychiatric (depression) Exam Surgical H&P Exam: Normal: HEENT, Normal: Heart, Normal: Lungs, Normal: Extremities, Normal: Abdomen, Normal: Skin and Normal: Neurological Plan Diagnosis/Plan: Change I have reviewed the history and physical and performed a pertinent physical examination on my patient. No changes have occurred unless specified.
--- NOTE | 2021-10-07 07:47 | HO.ECTPROC ---
ECT Procedure Note Diagnosis/Treatment Date of Service: 10/07/21 Diagnosis: Major Depressive Disorder Current Treatment Number: 1 Treatment: Series Interval Clinical Notes: The patient reported exacerbation of depression with suicidal ideation after medication change. Currently inpatient. ECT Settings Device: THYMATRON DGx Electrode Placement: Bifrontal Program/Pulse Width: 0.50 Energy Percent: 100 Seizure Duration By EEG (in seconds): 0 (not recorded on the EEG, motor seizure for 41s) By Motor Observation (in seconds): 41 Medications Administration General Anesthetic: Etomidate (16) Muscle Relaxant: Succinylcholine (100) Ancillary Medications Analgesics: Torodol - Pre ECT Anti-emetics: Zofran - Pre ECT Cardiovascular Medications: Labetolol Miscillaneous Medications: Propofol (30) Airway Management Airway Management: Bag Mask Ventilation Treatment Recommendations No Changes Recommended: No change Pt Tolerated Procedure w/o Issue: Yes
[2021-10-07] MEDS: Acetaminophen 325 MG TABLET 650 MG PO (08:40)
[2021-10-07] MEDS: Brexpiprazole 1 MG TABLET 3 MG PO (09:42)
[2021-10-07] MEDS: Escitalopram Oxalate 5 MG TABLET PO (09:42)
[2021-10-07] MEDS: lamoTRIgine 100 MG TABLET 200 MG PO ×2 (09:42→20:58)
[2021-10-07] MEDS: Vortioxetine Hydrobromide 10 MG TABLET PO (09:42)
[2021-10-07] MEDS: Multivitamin TABLET 1 TAB PO (09:42)
[2021-10-07] MEDS: Finasteride 5 MG TABLET PO (09:42)
[2021-10-07] MEDS: Gabapentin 400 MG CAPSULE PO ×3 (09:43→20:59)
--- NOTE | 2021-10-07 10:06 | P.PNPSI_ITS ---
Subjective Subjective Date of Service: 10/07/21 Reason For Visit: MDD Service Subjective Notes: Conditional Voluntary Healthcare Proxy: No Guardianship: No Interim History: Patient had ECT has been quite anxious has been followed by Dr. Castano anxious and depressed Mental Status Exam Mental Status Exam Patient Appearance: Well Grooomed (Wheelchair bound) Patient Orientation: Person, Place, Time and Situation Level of Consciousness: Awake Patient Behavior: Cooperative Mood Description: Depressed Affect Description: Constricted Patient Cognition Impaired: No Ability to Follow Directions: Good Speech Pattern: Clear Memory Description: Intact Diagnostics Vital Signs (24Hr): Vital Signs - 24 hr 10/06/21 20:05 10/07/21 05:35 10/07/21 05:37 Temperature 97.5 F 96.9 F Pulse Rate 70 72 72 Respiratory Rate 20 19 Blood Pressure 158/87 H 158/87 H Pulse Oximetry 96 97 10/07/21 07:13 10/07/21 08:17 10/07/21 08:22 Temperature 97.9 F 98.5 F Pulse Rate 72 73 74 Respiratory Rate 16 21 H 22 H Blood Pressure 170/82 H 179/89 H 173/89 H Pulse Oximetry 96 95 95 10/07/21 08:27 10/07/21 08:32 10/07/21 08:47 Temperature Pulse Rate 72 71 68 Respiratory Rate 23 H 19 21 H Blood Pressure 170/95 H 171/97 H 159/93 H Pulse Oximetry 96 96 95 10/07/21 09:02 Temperature 98.1 F Pulse Rate 67 Respiratory Rate 17 Blood Pressure 155/74 H Pulse Oximetry 96 Body Mass Index 30.2 Labs Results: 10/01/21 19:18 10/01/21 19:18 Medications Medications Current Medications Acetaminophen (Acetaminophen 325 Mg Tablet) 650 mg PO Q6H PRN PRN Reason: Headache/Pain Mild Scale (1-3) Last Admin: 10/07/21 08:40 Dose: 650 mg Documented by: Acetaminophen (Acetaminophen 325 Mg Tablet) 650 mg PO Q6H PRN PRN Reason: Pain (Scale Score 1-3) Al Hydroxide/Mg Hydroxide (Magnesium Hydrox/Alum Hydrox 30 Ml Oral.Susp) 30 ml PO Q6H PRN PRN Reason: Heartburn/Nausea Albuterol Sulfate (Albuterol Sulfate 90 Mcg 8 Gm Inhaler) 2 puff INHALE Q6H PRN PRN Reason: Shortness Of Breath Last Admin: 10/06/21 20:41 Dose: 2 puff Documented by: Amlodipine Besylate (Amlodipine Besylate 10 Mg Tablet) 10 mg PO DAILY [facility]; Protocol Last Admin: 10/07/21 05:37 Dose: 10 mg Documented by: Artificial Tears (Artificial Tears 15 Ml Drops) 1 drop EYE-BOTH Q1H PRN PRN Reason: Dry Eye(S) Last Admin: 10/02/21 13:21 Dose: 1 drop Documented by: Brexpiprazole (Brexpiprazole 1 Mg Tablet) 3 mg PO DAILY [facility] Last Admin: 10/07/21 09:42 Dose: 3 mg Documented by: Docusate Sodium (Docusate Sodium 100 Mg Capsule) 100 mg PO BEDTIME PRN PRN Reason: Constipation Last Admin: 10/03/21 20:35 Dose: 100 mg Documented by: Escitalopram Oxalate (Escitalopram Oxalate 5 Mg Tablet) 5 mg PO DAILY [facility] Last Admin: 10/07/21 09:42 Dose: 5 mg Documented by: Finasteride (Finasteride 5 Mg Tablet) 5 mg PO DAILY [facility] Last Admin: 10/07/21 09:42 Dose: 5 mg Documented by: Gabapentin (Gabapentin 400 Mg Capsule) 400 mg PO TID [facility] Last Admin: 10/07/21 09:43 Dose: 400 mg Documented by: Hydrocortisone (Hydrocortisone 1 % Cream 28.35 Gm Tube) 1 appl TOPICAL Q4H PRN; Protocol PRN Reason: RECTAL IRRITATION Last Admin: 10/04/21 21:31 Dose: 1 appl Documented by: Hydroxyzine HCl (Hydroxyzine Hcl 25 Mg Tablet) 25 mg PO BEDTIME PRN PRN Reason: Anxiety Lactated Ringer's (Lr) 1,000 mls @ 50 mls/hr IVCONT .Q20H [facility] Last Admin: 10/07/21 07:17 Dose: 50 mls/hr Documented by: Ibuprofen (Ibuprofen 400 Mg Tablet) 400 mg PO Q6H PRN PRN Reason: Pain, Moderate (Pain Scale 4-6 Last Admin: 10/07/21 02:18 Dose: 400 mg Documented by: Lamotrigine (Lamotrigine 100 Mg Tablet) 200 mg PO BID [facility] Last Admin: 10/07/21 09:42 Dose: 200 mg Documented by: Latanoprost (Latanoprost 0.005 % Ophth No 2.5 Ml Drops) 1 drop EYE-BOTH BEDTIME [facility] Last Admin: 10/06/21 20:26 Dose: 1 drop Documented by: Lidocaine (Lidocaine 4 % Patch Adh..Patch) 1 patch TRANSDERMA DAILY [facility]; Protocol Last Admin: 10/06/21 10:07 Dose: Not Given Documented by: Lisinopril (Lisinopril 40 Mg Tablet) 40 mg PO DAILY [facility]; Protocol Last Admin: 10/07/21 05:35 Dose: 40 mg Documented by: Magnesium Hydroxide (Milk Of Magnesia 30 Ml Oral.Susp) 30 ml PO DAILY PRN PRN Reason: Constipation Magnesium Hydroxide (Milk Of Magnesia 30 Ml Oral.Susp) 30 ml PO Q72H PRN PRN Reason: Constipation Melatonin (Melatonin 3 Mg Tablet) 6 mg PO BEDTIME [facility] Last Admin: 10/06/21 20:27 Dose: 6 mg Documented by: Miconazole Nitrate (Miconazole 2 % Extra Thick Cr 56.7 Gm Tube) 1 appl TOPICAL BID [facility]; Protocol Last Admin: 10/06/21 20:27 Dose: 1 appl Documented by: Mirtazapine (Mirtazapine 15 Mg Tablet) 45 mg PO BEDTIME [facility] Last Admin: 10/06/21 20:27 Dose: 45 mg Documented by: Multivitamins/Vitamin C (Multivitamin Tablet) 1 tab PO DAILY [facility] Last Admin: 10/07/21 09:42 Dose: 1 tab Documented by: Pharmacy Consult (Consult Rx Other Drug Dosing) 1 each MISCELLANE DAILY PRN PRN Reason: Consult order Polyethylene Glycol (Polyethylene Glycol 3350 17 Gm Powd.Pack) 17 gm PO DAILY PRN PRN Reason: Constipation Last Admin: 10/05/21 15:53 Dose: 17 gm Documented by: Polyethylene Glycol (Polyethylene Glycol 3350 17 Gm Powd.Pack) 17 gm PO DAILY@1600 [facility] Last Admin: 10/06/21 17:33 Dose: Not Given Documented by: Quetiapine Fumarate (Quetiapine Fumarate 25 Mg Tablet) 25 mg PO BID PRN PRN Reason: Anxiety Trazodone HCl (Trazodone Hcl 50 Mg Tablet) 50 mg PO BEDTIME PRN PRN Reason: Insomnia Last Admin: 10/01/21 23:41 Dose: 50 mg Documented by: Trazodone HCl (Trazodone Hcl 100 Mg Tablet) 300 mg PO BEDTIME [facility] Last Admin: 10/06/21 20:27 Dose: 300 mg Documented by: Vortioxetine (Vortioxetine Hydrobromide 10 Mg Tablet) 10 mg PO DAILY [facility] Last Admin: 10/07/21 09:42 Dose: 10 mg Documented by: Allergies Allergies Allergy/AdvReac Type Severity Reaction Status Date / Time fentanyl [FENTANYL] Allergy Intermediate unknown Verified 05/22/21 11:43 Assessment & Plan Assessment & Plan (1) Depression: Status: Acute Code(s): F32.A - Depression, unspecified Assessment and Plan: The patient is an elderly male with a long history of major depressive disorder and TBI, admitted before, very well known by the service.? He has been admitted for exacerbation of depression with suicidal ideation without a clear stressor.? Historically, the patient responds to ECT. Plan 1. Gather collateral information from the [facility]. 2. Continue same antidepressants.? Trintellix increased continue ECT monitor response encourage more intensive outpatient treatment which patient has resisted (2) HTN (hypertension): Status: Acute Code(s): I10 - Essential (primary) hypertension Assessment and Plan: this is a 66 year old male with history of htn, tbi, subdural hematoma s/p evacuation, resident of [facility], admitted to inpatient psych floor for management of worsening depressive symptoms Has previously received ECT with no adverse outcomes. Poor functional capacity but no changes in medical condition since last ECT treatment. EKG unchanged from previous. No obvious contraindication to preceding as planned. thank you for allowing us to participate in the care of this patient. attending; dr. jones I spent minutes with the patient and/or on the patient floor today, greater than?50% of which was spent counseling/coordinating care. Reason for contiued inpatient stay Substantial Risk for: harm to self and rapid decompensation
[2021-10-07] MEDS: polyethylene glycoL 3350 17 GM POWD.PACK PO (17:00)
[2021-10-07] MEDS: Latanoprost 0.005 % Ophth Sol 2.5 ML DROPS 1 DROP EYE-BOTH (20:57)
[2021-10-07] MEDS: Melatonin 3 MG TABLET 6 MG PO (20:57)
[2021-10-07] MEDS: Miconazole 2 % Extra Thick Cr 56.7 Gm Tube 1 APPL TOPICAL (20:57)
[2021-10-07] MEDS: Mirtazapine 15 MG TABLET 45 MG PO (20:58)
[2021-10-07] MEDS: traZODone HCL 100 MG TABLET 300 MG PO (20:58)
[2021-10-07] MEDS: Albuterol Sulfate 90 MCG 8 GM INHALER 2 PUFF INHALE (21:15)
[2021-10-08] MEDS: Acetaminophen 325 MG TABLET 650 MG PO (02:53)
[2021-10-08] MEDS: hydrOXYzine HCL 25 MG TABLET PO (02:54)
[2021-10-08] MEDS: Albuterol Sulfate 90 MCG 8 GM INHALER 2 PUFF INHALE (05:21)
[2021-10-08 06:00] VITALS: BP 170/79; PULSE 73; RESP 16; TEMP 36.7; O2SAT 93
[2021-10-08] MEDS: Finasteride 5 MG TABLET PO (08:14)
[2021-10-08] MEDS: Multivitamin TABLET 1 TAB PO (08:14)
[2021-10-08] MEDS: Gabapentin 400 MG CAPSULE PO ×3 (08:14→20:44)
[2021-10-08] MEDS: Vortioxetine Hydrobromide 10 MG TABLET PO (08:14)
[2021-10-08 08:15] VITALS: BP 170/79; PULSE 73
[2021-10-08] MEDS: lisinopriL 40 MG TABLET PO (08:15)
[2021-10-08] MEDS: Escitalopram Oxalate 5 MG TABLET PO (08:15)
[2021-10-08] MEDS: lamoTRIgine 100 MG TABLET 200 MG PO ×2 (08:16→20:40)
[2021-10-08 08:21] VITALS: BP 170/79; PULSE 73
[2021-10-08] MEDS: amLODIPine Besylate 10 MG TABLET PO (08:21)
[2021-10-08] MEDS: Brexpiprazole 1 MG TABLET 3 MG PO (10:55)
[2021-10-08] MEDS: Docusate Sodium 100 MG CAPSULE PO (12:11)
[2021-10-08] MEDS: Ibuprofen 400 MG TABLET PO (14:22)
[2021-10-08] MEDS: LORazepam 0.5 MG TABLET PO (16:11)
[2021-10-08 19:30] VITALS: BP 137/66; PULSE 72; RESP 19; TEMP 36.5; O2SAT 95
[2021-10-08] MEDS: traZODone HCL 100 MG TABLET 300 MG PO (20:43)
[2021-10-08] MEDS: Mirtazapine 15 MG TABLET 45 MG PO (20:44)
[2021-10-08] MEDS: Hydrocortisone 1 % Cream 28.35 GM TUBE 1 APPL TOPICAL (20:44)
[2021-10-08] MEDS: Melatonin 3 MG TABLET 6 MG PO (20:44)
[2021-10-08] MEDS: Miconazole 2 % Extra Thick Cr 56.7 Gm Tube 1 APPL TOPICAL (20:44)
--- NOTE | 2021-10-08 21:05 | HO.PSYCHPN ---
Subjective Subjective Date of Service: 10/08/21 Reason For Visit: MDD Service Subjective Notes: Conditional Voluntary Healthcare Proxy: No Guardianship: No Interim History: Patient depressed anxious ruminating. Extensive discussion with patient and social work regarding need to not just rely on biological treatment. Unclear response to ECT we discussed aggressively adjusting medication trying to set intensive outpatient services that patient will cooperate with. Patient does have left handed arm tremor Medication Compliance: Yes Side effects from medications: Yes Mental Status Exam Mental Status Exam Patient Appearance: Well Grooomed (Wheelchair bound) Patient Orientation: Person, Place, Time and Situation Level of Consciousness: Awake Patient Behavior: Cooperative Mood Description: Depressed and Apprehensive Affect Description: Constricted and Apprehensive Patient Cognition Impaired: No Ability to Follow Directions: Good Speech Pattern: Clear Memory Description: Intact Thought Content: positive for Suicidal Ideation and negative for Homicidal Ideation Depressive Symptoms: Increased Anxiety, Increased Irritability and Thoughts of /Suicide Diagnostics Vital Signs (24Hr): Vital Signs - 24 hr 10/08/21 06:00 10/08/21 08:15 10/08/21 08:21 Temperature 98.1 F Pulse Rate 73 73 73 Respiratory Rate 16 Blood Pressure 170/79 H 170/79 H 170/79 H Pulse Oximetry 93 10/08/21 19:30 Temperature 97.7 F Pulse Rate 72 Respiratory Rate 19 Blood Pressure 137/66 Pulse Oximetry 95 Body Mass Index 30.2 Labs Results: 10/01/21 19:18 10/01/21 19:18 Medications Medications Current Medications Acetaminophen (Acetaminophen 325 Mg Tablet) 650 mg PO Q6H PRN PRN Reason: Headache/Pain Mild Scale (1-3) Last Admin: 10/08/21 02:53 Dose: 650 mg Documented by: Acetaminophen (Acetaminophen 325 Mg Tablet) 650 mg PO Q6H PRN PRN Reason: Pain (Scale Score 1-3) Al Hydroxide/Mg Hydroxide (Magnesium Hydrox/Alum Hydrox 30 Ml Oral.Susp) 30 ml PO Q6H PRN PRN Reason: Heartburn/Nausea Albuterol Sulfate (Albuterol Sulfate 90 Mcg 8 Gm Inhaler) 2 puff INHALE Q6H PRN PRN Reason: Shortness Of Breath Last Admin: 10/08/21 05:21 Dose: 2 puff Documented by: Amlodipine Besylate (Amlodipine Besylate 10 Mg Tablet) 10 mg PO DAILY [facility]; Protocol Last Admin: 10/08/21 08:21 Dose: 10 mg Documented by: Artificial Tears (Artificial Tears 15 Ml Drops) 1 drop EYE-BOTH Q1H PRN PRN Reason: Dry Eye(S) Last Admin: 10/02/21 13:21 Dose: 1 drop Documented by: Brexpiprazole (Brexpiprazole 1 Mg Tablet) 1 mg PO DAILY [facility] Docusate Sodium (Docusate Sodium 100 Mg Capsule) 100 mg PO BEDTIME PRN PRN Reason: Constipation Last Admin: 10/03/21 20:35 Dose: 100 mg Documented by: Docusate Sodium (Docusate Sodium 100 Mg Capsule) 100 mg PO BID PRN PRN Reason: Constipation Last Admin: 10/08/21 12:11 Dose: 100 mg Documented by: Escitalopram Oxalate (Escitalopram Oxalate 5 Mg Tablet) 5 mg PO DAILY [facility] Last Admin: 10/08/21 08:15 Dose: 5 mg Documented by: Finasteride (Finasteride 5 Mg Tablet) 5 mg PO DAILY [facility] Last Admin: 10/08/21 08:14 Dose: 5 mg Documented by: Gabapentin (Gabapentin 400 Mg Capsule) 400 mg PO TID [facility] Last Admin: 10/08/21 20:44 Dose: 400 mg Documented by: Hydrocortisone (Hydrocortisone 1 % Cream 28.35 Gm Tube) 1 appl TOPICAL Q4H PRN; Protocol PRN Reason: RECTAL IRRITATION Last Admin: 10/08/21 20:44 Dose: 1 appl Documented by: Hydroxyzine HCl (Hydroxyzine Hcl 25 Mg Tablet) 25 mg PO BEDTIME PRN PRN Reason: Anxiety Last Admin: 10/08/21 02:54 Dose: 25 mg Documented by: Lactated Ringer's (Lr) 1,000 mls @ 50 mls/hr IVCONT .Q20H [facility] Last Admin: 10/08/21 19:58 Dose: Not Given Documented by: Ibuprofen (Ibuprofen 400 Mg Tablet) 400 mg PO Q6H PRN PRN Reason: Pain, Moderate (Pain Scale 4-6 Last Admin: 10/08/21 14:22 Dose: 400 mg Documented by: Lamotrigine (Lamotrigine 100 Mg Tablet) 200 mg PO BID [facility] Last Admin: 10/08/21 20:40 Dose: 200 mg Documented by: Latanoprost (Latanoprost 0.005 % Ophth No 2.5 Ml Drops) 1 drop EYE-BOTH BEDTIME [facility] Last Admin: 10/07/21 20:57 Dose: 1 drop Documented by: Lidocaine (Lidocaine 4 % Patch Adh..Patch) 1 patch TRANSDERMA DAILY [facility]; Protocol Last Admin: 10/08/21 08:22 Dose: Not Given Documented by: Lisinopril (Lisinopril 40 Mg Tablet) 40 mg PO DAILY [facility]; Protocol Last Admin: 10/08/21 08:15 Dose: 40 mg Documented by: Lorazepam (Lorazepam 0.5 Mg Tablet) 0.5 mg PO Q4H PRN PRN Reason: anxiety/restlessness Last Admin: 10/08/21 16:11 Dose: 0.5 mg Documented by: Magnesium Hydroxide (Milk Of Magnesia 30 Ml Oral.Susp) 30 ml PO DAILY PRN PRN Reason: Constipation Magnesium Hydroxide (Milk Of Magnesia 30 Ml Oral.Susp) 30 ml PO Q72H PRN PRN Reason: Constipation Melatonin (Melatonin 3 Mg Tablet) 6 mg PO BEDTIME [facility] Last Admin: 10/08/21 20:44 Dose: 6 mg Documented by: Miconazole Nitrate (Miconazole 2 % Extra Thick Cr 56.7 Gm Tube) 1 appl TOPICAL BID [facility]; Protocol Last Admin: 10/08/21 20:44 Dose: 1 appl Documented by: Mirtazapine (Mirtazapine 15 Mg Tablet) 45 mg PO BEDTIME [facility] Last Admin: 10/08/21 20:44 Dose: 45 mg Documented by: Multivitamins/Vitamin C (Multivitamin Tablet) 1 tab PO DAILY [facility] Last Admin: 10/08/21 08:14 Dose: 1 tab Documented by: Pharmacy Consult (Consult Rx Other Drug Dosing) 1 each MISCELLANE DAILY PRN PRN Reason: Consult order Polyethylene Glycol (Polyethylene Glycol 3350 17 Gm Powd.Pack) 17 gm PO DAILY PRN PRN Reason: Constipation Last Admin: 10/05/21 15:53 Dose: 17 gm Documented by: Polyethylene Glycol (Polyethylene Glycol 3350 17 Gm Powd.Pack) 17 gm PO DAILY@1600 [facility] Last Admin: 10/08/21 20:59 Dose: Not Given Documented by: Quetiapine Fumarate (Quetiapine Fumarate 25 Mg Tablet) 25 mg PO BID PRN PRN Reason: Anxiety Trazodone HCl (Trazodone Hcl 50 Mg Tablet) 50 mg PO BEDTIME PRN PRN Reason: Insomnia Last Admin: 10/01/21 23:41 Dose: 50 mg Documented by: Trazodone HCl (Trazodone Hcl 100 Mg Tablet) 300 mg PO BEDTIME [facility] Last Admin: 10/08/21 20:43 Dose: 300 mg Documented by: Vortioxetine (Vortioxetine Hydrobromide 10 Mg Tablet) 20 mg PO DAILY [facility] Allergies Allergies Allergy/AdvReac Type Severity Reaction Status Date / Time fentanyl [FENTANYL] Allergy Intermediate unknown Verified 05/22/21 11:43 Assessment & Plan Assessment & Plan (1) Depression: Status: Acute Code(s): F32.A - Depression, unspecified Assessment and Plan: The patient is an elderly male with a long history of major depressive disorder and TBI, admitted before, very well known by the service.? He has been admitted for exacerbation of depression with suicidal ideation without a clear stressor.? Historically, the patient responds to ECT. Plan 1. Gather collateral information from the [facility]. 2. Continue same antidepressants.? Trintellix increased taper rexulti secondary to tremor monitor response encourage more intensive outpatient treatment which patient has resisted hold ect unclear if has been effective (2) HTN (hypertension): Status: Acute Code(s): I10 - Essential (primary) hypertension Assessment and Plan: this is a 66 year old male with history of htn, tbi, subdural hematoma s/p evacuation, resident of [facility], admitted to inpatient psych floor for management of worsening depressive symptoms Has previously received ECT with no adverse outcomes. Poor functional capacity but no changes in medical condition since last ECT treatment. EKG unchanged from previous. No obvious contraindication to preceding as planned. thank you for allowing us to participate in the care of this patient. attending; dr. jones I spent minutes with the patient and/or on the patient floor today, greater than?50% of which was spent counseling/coordinating care. Reason for contiued inpatient stay Substantial Risk for: harm to self, inability to function and rapid decompensation
[2021-10-08] MEDS: Latanoprost 0.005 % Ophth Sol 2.5 ML DROPS 1 DROP EYE-BOTH (22:00)
[2021-10-09] MEDS: LORazepam 0.5 MG TABLET PO (03:10)
[2021-10-09 06:00] VITALS: BP 152/80; PULSE 72; RESP 16; TEMP 36.5; O2SAT 96
--- NOTE | 2021-10-09 09:03 | P.PNPSI_ITS ---
Subjective Subjective Date of Service: 10/09/21 Reason For Visit: MDD Service Subjective Notes: Conditional Voluntary Healthcare Proxy: No Guardianship: No Medical Problems Affecting Mental Status: Yes Interim History: The patient is anxious depressed intermittently helpless and hopeless he is agreeable to holding off on further ECT and seeing if medication adjustments would be helpful and focus on changes in his outpatient environment. Consider a maintenance treatment next week Review of Systems Medical Review of Systems: unchanged Mental Status Exam Mental Status Exam Patient Appearance: Well Grooomed (Wheelchair bound) Patient Orientation: Person, Place, Time and Situation Level of Consciousness: Awake Patient Behavior: Cooperative Mood Description: Depressed, Anxious and Apprehensive Affect Description: Constricted and Apprehensive Patient Cognition Impaired: No Ability to Follow Directions: Good Speech Pattern: Clear Memory Description: Intact Hallucinations: None Delusions: Not Present Thought Content: positive for Suicidal Ideation and negative for Homicidal Ideation Depressive Symptoms: Increased Anxiety, Increased Irritability and Thoughts of /Suicide Judgement: Fair Diagnostics Vital Signs (24Hr): Vital Signs - 24 hr 10/08/21 19:30 10/09/21 06:00 Temperature 97.7 F 97.7 F Pulse Rate 72 72 Respiratory Rate 19 16 Blood Pressure 137/66 152/80 H Pulse Oximetry 95 96 Body Mass Index 30.2 Labs Results: 10/01/21 19:18 10/01/21 19:18 Medications Medications Current Medications Acetaminophen (Acetaminophen 325 Mg Tablet) 650 mg PO Q6H PRN PRN Reason: Headache/Pain Mild Scale (1-3) Last Admin: 10/08/21 02:53 Dose: 650 mg Documented by: Acetaminophen (Acetaminophen 325 Mg Tablet) 650 mg PO Q6H PRN PRN Reason: Pain (Scale Score 1-3) Al Hydroxide/Mg Hydroxide (Magnesium Hydrox/Alum Hydrox 30 Ml Oral.Susp) 30 ml PO Q6H PRN PRN Reason: Heartburn/Nausea Albuterol Sulfate (Albuterol Sulfate 90 Mcg 8 Gm Inhaler) 2 puff INHALE Q6H PRN PRN Reason: Shortness Of Breath Last Admin: 10/08/21 05:21 Dose: 2 puff Documented by: Amlodipine Besylate (Amlodipine Besylate 10 Mg Tablet) 10 mg PO DAILY [facility]; Protocol Last Admin: 10/08/21 08:21 Dose: 10 mg Documented by: Artificial Tears (Artificial Tears 15 Ml Drops) 1 drop EYE-BOTH Q1H PRN PRN Reason: Dry Eye(S) Last Admin: 10/02/21 13:21 Dose: 1 drop Documented by: Brexpiprazole (Brexpiprazole 1 Mg Tablet) 1 mg PO DAILY [facility] Docusate Sodium (Docusate Sodium 100 Mg Capsule) 100 mg PO BEDTIME PRN PRN Reason: Constipation Last Admin: 10/03/21 20:35 Dose: 100 mg Documented by: Docusate Sodium (Docusate Sodium 100 Mg Capsule) 100 mg PO BID PRN PRN Reason: Constipation Last Admin: 10/08/21 12:11 Dose: 100 mg Documented by: Escitalopram Oxalate (Escitalopram Oxalate 5 Mg Tablet) 5 mg PO DAILY [facility] Last Admin: 10/08/21 08:15 Dose: 5 mg Documented by: Finasteride (Finasteride 5 Mg Tablet) 5 mg PO DAILY [facility] Last Admin: 10/08/21 08:14 Dose: 5 mg Documented by: Gabapentin (Gabapentin 400 Mg Capsule) 400 mg PO TID [facility] Last Admin: 10/08/21 20:44 Dose: 400 mg Documented by: Hydrocortisone (Hydrocortisone 1 % Cream 28.35 Gm Tube) 1 appl TOPICAL Q4H PRN; Protocol PRN Reason: RECTAL IRRITATION Last Admin: 10/08/21 20:44 Dose: 1 appl Documented by: Hydroxyzine HCl (Hydroxyzine Hcl 25 Mg Tablet) 25 mg PO BEDTIME PRN PRN Reason: Anxiety Last Admin: 10/08/21 02:54 Dose: 25 mg Documented by: Lactated Ringer's (Lr) 1,000 mls @ 50 mls/hr IVCONT .Q20H [facility] Last Admin: 10/08/21 19:58 Dose: Not Given Documented by: Ibuprofen (Ibuprofen 400 Mg Tablet) 400 mg PO Q6H PRN PRN Reason: Pain, Moderate (Pain Scale 4-6 Last Admin: 10/08/21 14:22 Dose: 400 mg Documented by: Lamotrigine (Lamotrigine 100 Mg Tablet) 200 mg PO BID [facility] Last Admin: 10/08/21 20:40 Dose: 200 mg Documented by: Latanoprost (Latanoprost 0.005 % Ophth No 2.5 Ml Drops) 1 drop EYE-BOTH BEDTIME [facility] Last Admin: 10/08/21 22:00 Dose: 1 drop Documented by: Lidocaine (Lidocaine 4 % Patch Adh..Patch) 1 patch TRANSDERMA DAILY [facility]; Protocol Last Admin: 10/08/21 08:22 Dose: Not Given Documented by: Lisinopril (Lisinopril 40 Mg Tablet) 40 mg PO DAILY [facility]; Protocol Last Admin: 10/08/21 08:15 Dose: 40 mg Documented by: Lorazepam (Lorazepam 0.5 Mg Tablet) 0.5 mg PO Q4H PRN PRN Reason: anxiety/restlessness Last Admin: 10/09/21 03:10 Dose: 0.5 mg Documented by: Magnesium Hydroxide (Milk Of Magnesia 30 Ml Oral.Susp) 30 ml PO DAILY PRN PRN Reason: Constipation Magnesium Hydroxide (Milk Of Magnesia 30 Ml Oral.Susp) 30 ml PO Q72H PRN PRN Reason: Constipation Melatonin (Melatonin 3 Mg Tablet) 6 mg PO BEDTIME [facility] Last Admin: 10/08/21 20:44 Dose: 6 mg Documented by: Miconazole Nitrate (Miconazole 2 % Extra Thick Cr 56.7 Gm Tube) 1 appl TOPICAL BID [facility]; Protocol Last Admin: 10/08/21 20:44 Dose: 1 appl Documented by: Mirtazapine (Mirtazapine 15 Mg Tablet) 45 mg PO BEDTIME [facility] Last Admin: 10/08/21 20:44 Dose: 45 mg Documented by: Multivitamins/Vitamin C (Multivitamin Tablet) 1 tab PO DAILY [facility] Last Admin: 10/08/21 08:14 Dose: 1 tab Documented by: Pharmacy Consult (Consult Rx Other Drug Dosing) 1 each MISCELLANE DAILY PRN PRN Reason: Consult order Polyethylene Glycol (Polyethylene Glycol 3350 17 Gm Powd.Pack) 17 gm PO DAILY PRN PRN Reason: Constipation Last Admin: 10/05/21 15:53 Dose: 17 gm Documented by: Polyethylene Glycol (Polyethylene Glycol 3350 17 Gm Powd.Pack) 17 gm PO DAILY@1600 [facility] Last Admin: 10/08/21 20:59 Dose: Not Given Documented by: Quetiapine Fumarate (Quetiapine Fumarate 25 Mg Tablet) 25 mg PO BID PRN PRN Reason: Anxiety Trazodone HCl (Trazodone Hcl 50 Mg Tablet) 50 mg PO BEDTIME PRN PRN Reason: Insomnia Last Admin: 10/01/21 23:41 Dose: 50 mg Documented by: Trazodone HCl (Trazodone Hcl 100 Mg Tablet) 300 mg PO BEDTIME [facility] Last Admin: 10/08/21 20:43 Dose: 300 mg Documented by: Vortioxetine (Vortioxetine Hydrobromide 10 Mg Tablet) 20 mg PO DAILY [facility] Allergies Allergies Allergy/AdvReac Type Severity Reaction Status Date / Time fentanyl [FENTANYL] Allergy Intermediate unknown Verified 05/22/21 11:43 Assessment & Plan Assessment & Plan (1) Depression: Status: Acute Code(s): F32.A - Depression, unspecified Assessment and Plan: The patient is an elderly male with a long history of major depressive disorder and TBI, admitted before, very well known by the service.? He has been admitted for exacerbation of depression with suicidal ideation without a clear stressor.? Historically, the patient responds to ECT. Plan 1. Gather collateral information from the [facility]. 2. Continue same antidepressants.? Trintellix increased taper rexulti secondary to tremor monitor response encourage more intensive outpatient treatment which patient has resisted hold ect unclear if has been effective (2) HTN (hypertension): Status: Acute Code(s): I10 - Essential (primary) hypertension Assessment and Plan: Patient had tremor on or Rexulti with no significant improvement will change to Latuda studies suggesting may be helpful for depression including non bipolar depression consider a transitional ECT next week encourage change in outpatient plan I spent minutes with the patient and/or on the patient floor today, greater than?50% of which was spent counseling/coordinating care. Reason for contiued inpatient stay Substantial Risk for: harm to self and rapid decompensation
[2021-10-09] MEDS: Finasteride 5 MG TABLET PO (09:25)
[2021-10-09] MEDS: Vortioxetine Hydrobromide 10 MG TABLET 20 MG PO (09:26)
[2021-10-09] MEDS: lamoTRIgine 100 MG TABLET 200 MG PO ×2 (09:27→21:20)
[2021-10-09] MEDS: Escitalopram Oxalate 5 MG TABLET PO (09:28)
[2021-10-09] MEDS: Brexpiprazole 1 MG TABLET PO (09:28)
[2021-10-09] MEDS: Gabapentin 400 MG CAPSULE PO ×3 (09:28→21:20)
[2021-10-09 09:29] VITALS: BP 152/80; PULSE 72
[2021-10-09] MEDS: lisinopriL 40 MG TABLET PO (09:29)
[2021-10-09] MEDS: amLODIPine Besylate 10 MG TABLET PO (09:29)
[2021-10-09] MEDS: Multivitamin TABLET 1 TAB PO (09:30)
[2021-10-09] MEDS: Albuterol Sulfate 90 MCG 8 GM INHALER 2 PUFF INHALE (10:32)
[2021-10-09] MEDS: Miconazole 2 % Extra Thick Cr 56.7 Gm Tube 1 APPL TOPICAL ×2 (10:34→21:19)
[2021-10-09] MEDS: polyethylene glycoL 3350 17 GM POWD.PACK PO (17:04)
[2021-10-09 21:04] VITALS: BP 151/71; PULSE 65; RESP 18; TEMP 36.8; O2SAT 96
[2021-10-09] MEDS: traZODone HCL 100 MG TABLET 300 MG PO (21:19)
[2021-10-09] MEDS: Melatonin 3 MG TABLET 6 MG PO (21:19)
[2021-10-09] MEDS: Latanoprost 0.005 % Ophth Sol 2.5 ML DROPS 1 DROP EYE-BOTH (21:20)
[2021-10-09] MEDS: Mirtazapine 15 MG TABLET 45 MG PO (21:20)
[2021-10-09] MEDS: Docusate Sodium 100 MG CAPSULE PO (21:29)
[2021-10-10] MEDS: LORazepam 0.5 MG TABLET PO (02:45)
[2021-10-10] MEDS: Ibuprofen 400 MG TABLET PO ×3 (05:29→21:21)
[2021-10-10 06:00] VITALS: BP 147/78; PULSE 62; RESP 14
--- NOTE | 2021-10-10 07:31 | P.PNPSI_ITS ---
Subjective Subjective Date of Service: 10/10/21 Reason For Visit: MDD Service Subjective Notes: Conditional Voluntary Interim History: Pt reports his depression has been constant for several years. He denies SI/HI. He reports discussion with Dr. Haskins about holding off on ECT as unclear therapeutic benefit. Pt reports feeling hopeful about new medication for depression (trintellix). He reports sleeping and eating well. Per nursing, pt has been visible in the unit, minimally social with peers, very pleasant on approach. Medication Compliance: Yes Side effects from medications: No Review of Systems Review of Systems Yes all other systems are reviewed and are negative Constitutional: Reports no additional constitutional complaints, Denies chills and Denies fever(s) Denies vertigo and Denies dizziness Cardiovascular: Reports no additional cardiovascular complaints and Denies chest pain Respiratory: Reports no additional respiratory complaints and Denies cough Gastrointestinal: Denies abdominal pain Denies vertigo and Denies dizziness Mental Status Exam Mental Status Exam Patient Appearance: Well Grooomed (Wheelchair bound) Patient Orientation: Person, Place, Time and Situation Level of Consciousness: Awake Patient Behavior: Cooperative Mood Description: Depressed, Anxious and Apprehensive Affect Description: Constricted and Apprehensive Patient Cognition Impaired: No Ability to Follow Directions: Good Speech Pattern: Clear Memory Description: Intact Diagnostics Vital Signs (24Hr): Vital Signs - 24 hr 10/10/21 08:08 10/10/21 16:30 10/10/21 20:03 Temperature 97.3 F 97.8 F Pulse Rate 62 66 66 Respiratory Rate 16 18 Blood Pressure 147/78 H 125/61 114/66 Pulse Oximetry 96 95 Body Mass Index 30.2 Labs Results: 10/01/21 19:18 10/01/21 19:18 Medications Medications Current Medications Acetaminophen (Acetaminophen 325 Mg Tablet) 650 mg PO Q6H PRN PRN Reason: Headache/Pain Mild Scale (1-3) Last Admin: 10/08/21 02:53 Dose: 650 mg Documented by: Acetaminophen (Acetaminophen 325 Mg Tablet) 650 mg PO Q6H PRN PRN Reason: Pain (Scale Score 1-3) Al Hydroxide/Mg Hydroxide (Magnesium Hydrox/Alum Hydrox 30 Ml Oral.Susp) 30 ml PO Q6H PRN PRN Reason: Heartburn/Nausea Albuterol Sulfate (Albuterol Sulfate 90 Mcg 8 Gm Inhaler) 2 puff INHALE Q6H PRN PRN Reason: Shortness Of Breath Last Admin: 10/09/21 10:32 Dose: 2 puff Documented by: Amlodipine Besylate (Amlodipine Besylate 10 Mg Tablet) 10 mg PO DAILY [facility]; Protocol Last Admin: 10/10/21 08:09 Dose: 10 mg Documented by: Artificial Tears (Artificial Tears 15 Ml Drops) 1 drop EYE-BOTH Q1H PRN PRN Reason: Dry Eye(S) Last Admin: 10/10/21 10:16 Dose: 1 drop Documented by: Brexpiprazole (Brexpiprazole 1 Mg Tablet) 1 mg PO DAILY [facility] Last Admin: 10/10/21 08:09 Dose: 1 mg Documented by: Docusate Sodium (Docusate Sodium 100 Mg Capsule) 100 mg PO BEDTIME PRN PRN Reason: Constipation Last Admin: 10/09/21 21:29 Dose: 100 mg Documented by: Docusate Sodium (Docusate Sodium 100 Mg Capsule) 100 mg PO BID PRN PRN Reason: Constipation Last Admin: 10/10/21 14:28 Dose: 100 mg Documented by: Escitalopram Oxalate (Escitalopram Oxalate 5 Mg Tablet) 5 mg PO DAILY [facility] Last Admin: 10/10/21 08:09 Dose: 5 mg Documented by: Finasteride (Finasteride 5 Mg Tablet) 5 mg PO DAILY [facility] Last Admin: 10/10/21 08:09 Dose: 5 mg Documented by: Gabapentin (Gabapentin 400 Mg Capsule) 400 mg PO TID [facility] Last Admin: 10/10/21 20:51 Dose: 400 mg Documented by: Hydrocortisone (Hydrocortisone 1 % Cream 28.35 Gm Tube) 1 appl TOPICAL Q4H PRN; Protocol PRN Reason: RECTAL IRRITATION Last Admin: 10/08/21 20:44 Dose: 1 appl Documented by: Hydroxyzine HCl (Hydroxyzine Hcl 25 Mg Tablet) 25 mg PO BEDTIME PRN PRN Reason: Anxiety Last Admin: 10/08/21 02:54 Dose: 25 mg Documented by: Ibuprofen (Ibuprofen 400 Mg Tablet) 400 mg PO Q6H PRN PRN Reason: Pain, Moderate (Pain Scale 4-6 Last Admin: 10/11/21 05:04 Dose: 400 mg Documented by: Lamotrigine (Lamotrigine 100 Mg Tablet) 200 mg PO BID [facility] Last Admin: 10/10/21 20:51 Dose: 200 mg Documented by: Latanoprost (Latanoprost 0.005 % Ophth No 2.5 Ml Drops) 1 drop EYE-BOTH BEDTIME [facility] Last Admin: 10/10/21 20:54 Dose: 1 drop Documented by: Lidocaine (Lidocaine 4 % Patch Adh..Patch) 1 patch TRANSDERMA DAILY [facility]; Protocol Last Admin: 10/10/21 08:09 Dose: 1 patch Documented by: Lisinopril (Lisinopril 40 Mg Tablet) 40 mg PO DAILY [facility]; Protocol Last Admin: 10/10/21 08:08 Dose: 40 mg Documented by: Lorazepam (Lorazepam 0.5 Mg Tablet) 0.5 mg PO Q4H PRN PRN Reason: anxiety/restlessness Last Admin: 10/11/21 03:12 Dose: 0.5 mg Documented by: Magnesium Hydroxide (Milk Of Magnesia 30 Ml Oral.Susp) 30 ml PO DAILY PRN PRN Reason: Constipation Magnesium Hydroxide (Milk Of Magnesia 30 Ml Oral.Susp) 30 ml PO Q72H PRN PRN Reason: Constipation Melatonin (Melatonin 3 Mg Tablet) 6 mg PO BEDTIME [facility] Last Admin: 10/10/21 20:51 Dose: 6 mg Documented by: Miconazole Nitrate (Miconazole 2 % Extra Thick Cr 56.7 Gm Tube) 1 appl TOPICAL BID [facility]; Protocol Last Admin: 10/10/21 20:54 Dose: 1 appl Documented by: Mirtazapine (Mirtazapine 15 Mg Tablet) 45 mg PO BEDTIME [facility] Last Admin: 10/10/21 20:51 Dose: 45 mg Documented by: Multivitamins/Vitamin C (Multivitamin Tablet) 1 tab PO DAILY [facility] Last Admin: 10/10/21 08:08 Dose: 1 tab Documented by: Pharmacy Consult (Consult Rx Other Drug Dosing) 1 each MISCELLANE DAILY PRN PRN Reason: Consult order Polyethylene Glycol (Polyethylene Glycol 3350 17 Gm Powd.Pack) 17 gm PO DAILY PRN PRN Reason: Constipation Last Admin: 10/05/21 15:53 Dose: 17 gm Documented by: Polyethylene Glycol (Polyethylene Glycol 3350 17 Gm Powd.Pack) 17 gm PO DAILY@1600 [facility] Last Admin: 10/10/21 15:28 Dose: 17 gm Documented by: Quetiapine Fumarate (Quetiapine Fumarate 25 Mg Tablet) 25 mg PO BID PRN PRN Reason: Anxiety Trazodone HCl (Trazodone Hcl 50 Mg Tablet) 50 mg PO BEDTIME PRN PRN Reason: Insomnia Last Admin: 10/01/21 23:41 Dose: 50 mg Documented by: Trazodone HCl (Trazodone Hcl 100 Mg Tablet) 300 mg PO BEDTIME [facility] Last Admin: 10/10/21 20:51 Dose: 300 mg Documented by: Vortioxetine (Vortioxetine Hydrobromide 10 Mg Tablet) 20 mg PO DAILY [facility] Last Admin: 10/10/21 08:09 Dose: 20 mg Documented by: Allergies Allergies Allergy/AdvReac Type Severity Reaction Status Date / Time fentanyl [FENTANYL] Allergy Intermediate unknown Verified 05/22/21 11:43 Assessment & Plan Assessment & Plan (1) Depression: Status: Acute Code(s): F32.A - Depression, unspecified Assessment and Plan: The patient is an elderly male with a long history of major depressive disorder and TBI, admitted before, very well known by the service.? He has been admitted for exacerbation of depression with suicidal ideation without a clear stressor.? Historically, the patient responds to ECT. Plan: continue per primary treatment team. 1. Gather collateral information from the long-term. 2. Continue same antidepressants.? Trintellix increased taper rexulti secondary to tremor monitor response encourage more intensive outpatient treatment which patient has resisted hold ect unclear if has been effective (2) HTN (hypertension): Status: Acute Code(s): I10 - Essential (primary) hypertension Assessment and Plan: Patient had tremor on or Rexulti with no significant improvement will change to Latuda studies suggesting may be helpful for depression including non bipolar depression consider a transitional ECT next week encourage change in outpatient plan I spent minutes with the patient and/or on the patient floor today, greater than?50% of which was spent counseling/coordinating care. Reason for contiued inpatient stay Substantial Risk for: inability to function
[2021-10-10 08:08] VITALS: BP 147/78; PULSE 62
[2021-10-10] MEDS: Multivitamin TABLET 1 TAB PO (08:08)
[2021-10-10] MEDS: lisinopriL 40 MG TABLET PO (08:08)
[2021-10-10] MEDS: lamoTRIgine 100 MG TABLET 200 MG PO ×2 (08:08→20:51)
[2021-10-10] MEDS: Escitalopram Oxalate 5 MG TABLET PO (08:09)
[2021-10-10] MEDS: Vortioxetine Hydrobromide 10 MG TABLET 20 MG PO (08:09)
[2021-10-10] MEDS: amLODIPine Besylate 10 MG TABLET PO (08:09)
[2021-10-10] MEDS: Finasteride 5 MG TABLET PO (08:09)
[2021-10-10] MEDS: Gabapentin 400 MG CAPSULE PO ×3 (08:09→20:51)
[2021-10-10] MEDS: Miconazole 2 % Extra Thick Cr 56.7 Gm Tube 1 APPL TOPICAL ×2 (08:09→20:54)
[2021-10-10] MEDS: Brexpiprazole 1 MG TABLET PO (08:09)
[2021-10-10] MEDS: Lidocaine 4 % Patch ADH..PATCH 1 PATCH TRANSDERMA (08:09)
[2021-10-10] MEDS: Artificial Tears 15 ML DROPS 1 DROP EYE-BOTH (10:16)
[2021-10-10] MEDS: Docusate Sodium 100 MG CAPSULE PO (14:28)
[2021-10-10] MEDS: polyethylene glycoL 3350 17 GM POWD.PACK PO (15:28)
[2021-10-10 16:30] VITALS: BP 125/61; PULSE 66; RESP 16; TEMP 36.3; O2SAT 96
[2021-10-10 20:03] VITALS: BP 114/66; PULSE 66; RESP 18; TEMP 36.6; O2SAT 95
[2021-10-10] MEDS: Melatonin 3 MG TABLET 6 MG PO (20:51)
[2021-10-10] MEDS: Mirtazapine 15 MG TABLET 45 MG PO (20:51)
[2021-10-10] MEDS: traZODone HCL 100 MG TABLET 300 MG PO (20:51)
[2021-10-10] MEDS: Latanoprost 0.005 % Ophth Sol 2.5 ML DROPS 1 DROP EYE-BOTH (20:54)
[2021-10-11] MEDS: LORazepam 0.5 MG TABLET PO (03:12)
[2021-10-11] MEDS: Ibuprofen 400 MG TABLET PO ×2 (05:04→20:54)
[2021-10-11 06:00] VITALS: BP 162/87; PULSE 67; RESP 16; TEMP 36.8; O2SAT 96
[2021-10-11] MEDS: Finasteride 5 MG TABLET PO (09:11)
[2021-10-11] MEDS: Vortioxetine Hydrobromide 10 MG TABLET 20 MG PO (09:12)
[2021-10-11] MEDS: Brexpiprazole 1 MG TABLET PO (09:12)
[2021-10-11] MEDS: Escitalopram Oxalate 5 MG TABLET PO (09:12)
[2021-10-11 09:14] VITALS: BP 162/87; PULSE 67
[2021-10-11] MEDS: lamoTRIgine 100 MG TABLET 200 MG PO ×2 (09:14→20:32)
[2021-10-11] MEDS: lisinopriL 40 MG TABLET PO (09:14)
[2021-10-11 09:15] VITALS: BP 162/87; PULSE 67
[2021-10-11] MEDS: Gabapentin 400 MG CAPSULE PO ×3 (09:15→20:33)
[2021-10-11] MEDS: amLODIPine Besylate 10 MG TABLET PO (09:15)
[2021-10-11] MEDS: Multivitamin TABLET 1 TAB PO (09:16)
[2021-10-11] MEDS: Miconazole 2 % Extra Thick Cr 56.7 Gm Tube 1 APPL TOPICAL (10:21)
--- NOTE | 2021-10-11 11:35 | P.PNPSI_ITS ---
Subjective Subjective Date of Service: 10/11/21 Reason For Visit: MDD Service Subjective Notes: Conditional Voluntary Interim History: The nursing staff reported that yesterday he watches the TV, the football game. He has participated also in groups, he has been visible in the day area. The staff reported that sometimes he is verbally abusive with staff and demanding. On interview, the patient reports that he is depressed but he is able to contract for safety in the facility. Mental Status Exam Mental Status Exam Patient Appearance: Well Grooomed Patient Orientation: Person Level of Consciousness: Alert Patient Behavior: Cooperative Mood Description: Depressed Affect Description: Constricted Ability to Follow Directions: Good Speech Pattern: Appropriate Hallucinations: None Delusions: Not Present Thought Process: Linear Thought Content: positive for Circumstantial Depressive Symptoms: Increased Anxiety, Feelings of Worthlessness, Isolating- Friends/Family and Low Self Esteem Judgement: Fair Diagnostics Vital Signs (24Hr): Vital Signs - 24 hr 10/10/21 16:30 10/10/21 20:03 10/11/21 06:00 Temperature 97.3 F 97.8 F 98.2 F Pulse Rate 66 66 67 Respiratory Rate 16 18 16 Blood Pressure 125/61 114/66 162/87 H Pulse Oximetry 96 95 96 10/11/21 09:14 10/11/21 09:15 Temperature Pulse Rate 67 67 Respiratory Rate Blood Pressure 162/87 H 162/87 H Pulse Oximetry Body Mass Index 30.2 Labs Results: 10/01/21 19:18 10/01/21 19:18 Medications Medications Current Medications Acetaminophen (Acetaminophen 325 Mg Tablet) 650 mg PO Q6H PRN PRN Reason: Headache/Pain Mild Scale (1-3) Last Admin: 10/08/21 02:53 Dose: 650 mg Documented by: Acetaminophen (Acetaminophen 325 Mg Tablet) 650 mg PO Q6H PRN PRN Reason: Pain (Scale Score 1-3) Al Hydroxide/Mg Hydroxide (Magnesium Hydrox/Alum Hydrox 30 Ml Oral.Susp) 30 ml PO Q6H PRN PRN Reason: Heartburn/Nausea Albuterol Sulfate (Albuterol Sulfate 90 Mcg 8 Gm Inhaler) 2 puff INHALE Q6H PRN PRN Reason: Shortness Of Breath Last Admin: 10/09/21 10:32 Dose: 2 puff Documented by: Amlodipine Besylate (Amlodipine Besylate 10 Mg Tablet) 10 mg PO DAILY [facility]; Protocol Last Admin: 10/11/21 09:15 Dose: 10 mg Documented by: Artificial Tears (Artificial Tears 15 Ml Drops) 1 drop EYE-BOTH Q1H PRN PRN Reason: Dry Eye(S) Last Admin: 10/10/21 10:16 Dose: 1 drop Documented by: Brexpiprazole (Brexpiprazole 1 Mg Tablet) 1 mg PO DAILY [facility] Last Admin: 10/11/21 09:12 Dose: 1 mg Documented by: Docusate Sodium (Docusate Sodium 100 Mg Capsule) 100 mg PO BEDTIME PRN PRN Reason: Constipation Last Admin: 10/09/21 21:29 Dose: 100 mg Documented by: Docusate Sodium (Docusate Sodium 100 Mg Capsule) 100 mg PO BID PRN PRN Reason: Constipation Last Admin: 10/10/21 14:28 Dose: 100 mg Documented by: Escitalopram Oxalate (Escitalopram Oxalate 5 Mg Tablet) 5 mg PO DAILY [facility] Last Admin: 10/11/21 09:12 Dose: 5 mg Documented by: Finasteride (Finasteride 5 Mg Tablet) 5 mg PO DAILY [facility] Last Admin: 10/11/21 09:11 Dose: 5 mg Documented by: Gabapentin (Gabapentin 400 Mg Capsule) 400 mg PO TID [facility] Last Admin: 10/11/21 09:15 Dose: 400 mg Documented by: Hydrocortisone (Hydrocortisone 1 % Cream 28.35 Gm Tube) 1 appl TOPICAL Q4H PRN; Protocol PRN Reason: RECTAL IRRITATION Last Admin: 10/08/21 20:44 Dose: 1 appl Documented by: Hydroxyzine HCl (Hydroxyzine Hcl 25 Mg Tablet) 25 mg PO BEDTIME PRN PRN Reason: Anxiety Last Admin: 10/08/21 02:54 Dose: 25 mg Documented by: Ibuprofen (Ibuprofen 400 Mg Tablet) 400 mg PO Q6H PRN PRN Reason: Pain, Moderate (Pain Scale 4-6 Last Admin: 10/11/21 05:04 Dose: 400 mg Documented by: Lamotrigine (Lamotrigine 100 Mg Tablet) 200 mg PO BID [facility] Last Admin: 10/11/21 09:14 Dose: 200 mg Documented by: Latanoprost (Latanoprost 0.005 % Ophth No 2.5 Ml Drops) 1 drop EYE-BOTH B EDTIME [facility] Last Admin: 10/10/21 20:54 Dose: 1 drop Documented by: Lidocaine (Lidocaine 4 % Patch Adh..Patch) 1 patch TRANSDERMA DAILY [facility]; Protocol Last Admin: 10/11/21 10:18 Dose: Not Given Documented by: Lisinopril (Lisinopril 40 Mg Tablet) 40 mg PO DAILY [facility]; Protocol Last Admin: 10/11/21 09:14 Dose: 40 mg Documented by: Lorazepam (Lorazepam 0.5 Mg Tablet) 0.5 mg PO Q4H PRN PRN Reason: anxiety/restlessness Last Admin: 10/11/21 03:12 Dose: 0.5 mg Documented by: Magnesium Hydroxide (Milk Of Magnesia 30 Ml Oral.Susp) 30 ml PO DAILY PRN PRN Reason: Constipation Magnesium Hydroxide (Milk Of Magnesia 30 Ml Oral.Susp) 30 ml PO Q72H PRN PRN Reason: Constipation Melatonin (Melatonin 3 Mg Tablet) 6 mg PO BEDTIME [facility] Last Admin: 10/10/21 20:51 Dose: 6 mg Documented by: Miconazole Nitrate (Miconazole 2 % Extra Thick Cr 56.7 Gm Tube) 1 appl TOPICAL BID [facility]; Protocol Last Admin: 10/11/21 10:21 Dose: 1 appl Documented by: Mirtazapine (Mirtazapine 15 Mg Tablet) 45 mg PO BEDTIME [facility] Last Admin: 10/10/21 20:51 Dose: 45 mg Documented by: Multivitamins/Vitamin C (Multivitamin Tablet) 1 tab PO DAILY [facility] Last Admin: 10/11/21 09:16 Dose: 1 tab Documented by: Pharmacy Consult (Consult Rx Other Drug Dosing) 1 each MISCELLANE DAILY PRN PRN Reason: Consult order Polyethylene Glycol (Polyethylene Glycol 3350 17 Gm Powd.Pack) 17 gm PO DAILY PRN PRN Reason: Constipation Last Admin: 10/05/21 15:53 Dose: 17 gm Documented by: Polyethylene Glycol (Polyethylene Glycol 3350 17 Gm Powd.Pack) 17 gm PO DAILY@1600 [facility] Last Admin: 10/10/21 15:28 Dose: 17 gm Documented by: Quetiapine Fumarate (Quetiapine Fumarate 25 Mg Tablet) 25 mg PO BID PRN PRN Reason: Anxiety Trazodone HCl (Trazodone Hcl 50 Mg Tablet) 50 mg PO BEDTIME PRN PRN Reason: Insomnia Last Admin: 10/01/21 23:41 Dose: 50 mg Documented by: Trazodone HCl (Trazodone Hcl 100 Mg Tablet) 300 mg PO BEDTIME [facility] Last Admin: 10/10/21 20:51 Dose: 300 mg Documented by: Vortioxetine (Vortioxetine Hydrobromide 10 Mg Tablet) 20 mg PO DAILY [facility] Last Admin: 10/11/21 09:12 Dose: 20 mg Documented by: Allergies Allergies Allergy/AdvReac Type Severity Reaction Status Date / Time fentanyl [FENTANYL] Allergy Intermediate unknown Verified 05/22/21 11:43 Assessment & Plan Assessment & Plan (1) Depression: Status: Acute Code(s): F32.A - Depression, unspecified Assessment and Plan: The patient is an elderly male with a long history of major depressive disorder and TBI, admitted before, very well known by the service.? He has been admitted for exacerbation of depression with suicidal ideation without a clear stressor.? Historically, the patient responds to ECT. Plan: continue per primary treatment team. 1. Gather collateral information [facility] the jail. 2 Trintellix increased taper rexulti secondary to tremor monitor response encourage more intensive outpatient treatment which patient has resisted 3. hold ect unclear if has been effective (2) HTN (hypertension): Status: Acute Code(s): I10 - Essential (primary) hypertension Assessment and Plan: Patient had tremor on or Rexulti with no significant improvement will change to Latuda studies suggesting may be helpful for depression including non bipolar depression consider a transitional ECT next week encourage change in outpatient plan I spent minutes with the patient and/or on the patient floor today, greater than?50% of which was spent counseling/coordinating care. Reason for contiued inpatient stay Substantial Risk for: harm to self, inability to function, rapid decompensation and med/psych decompensation
[2021-10-11] MEDS: polyethylene glycoL 3350 17 GM POWD.PACK PO (15:53)
[2021-10-11] MEDS: Milk of Magnesia 30 ML ORAL.SUSP PO (15:55)
[2021-10-11] MEDS: Latanoprost 0.005 % Ophth Sol 2.5 ML DROPS 1 DROP EYE-BOTH (20:30)
[2021-10-11] MEDS: traZODone HCL 100 MG TABLET 300 MG PO (20:31)
[2021-10-11] MEDS: Melatonin 3 MG TABLET 6 MG PO (20:32)
[2021-10-11] MEDS: Docusate Sodium 100 MG CAPSULE PO (20:32)
[2021-10-11] MEDS: Mirtazapine 15 MG TABLET 45 MG PO (20:33)
[2021-10-11 20:53] VITALS: BP 113/64; PULSE 70; RESP 18; TEMP 36.6; O2SAT 94
[2021-10-12] MEDS: LORazepam 0.5 MG TABLET PO ×2 (01:15→05:27)
[2021-10-12] MEDS: Ibuprofen 400 MG TABLET PO ×2 (03:22→20:40)
[2021-10-12 09:04] VITALS: BP 118/64; PULSE 77; RESP 16; TEMP 36.3; O2SAT 94
[2021-10-12] MEDS: Lidocaine 4 % Patch ADH..PATCH 1 PATCH TRANSDERMA (09:08)
[2021-10-12] MEDS: Finasteride 5 MG TABLET PO (09:08)
[2021-10-12 09:09] VITALS: BP 118/64; PULSE 77
[2021-10-12] MEDS: Gabapentin 400 MG CAPSULE PO ×3 (09:09→20:42)
[2021-10-12] MEDS: Multivitamin TABLET 1 TAB PO (09:09)
[2021-10-12] MEDS: lisinopriL 40 MG TABLET PO (09:09)
[2021-10-12] MEDS: Brexpiprazole 1 MG TABLET PO (09:10)
[2021-10-12] MEDS: lamoTRIgine 100 MG TABLET 200 MG PO ×2 (09:10→20:42)
[2021-10-12] MEDS: Vortioxetine Hydrobromide 10 MG TABLET 20 MG PO (09:10)
[2021-10-12 09:11] VITALS: BP 118/64; PULSE 77
[2021-10-12] MEDS: Escitalopram Oxalate 5 MG TABLET PO (09:11)
[2021-10-12] MEDS: amLODIPine Besylate 10 MG TABLET PO (09:11)
--- NOTE | 2021-10-12 11:37 | P.PNPSI_ITS ---
Subjective Subjective Date of Service: 10/12/21 Reason For Visit: MDD Service Interim History: pt found snoozing in a wheelchair in the milieu. easily rousable. affable, loquacious. discussed at length his course over the past half year, including his course of ECT which apparently did not resolve his depression, his concern over a tremor that has developed in the past several months, and consideration of TMS. he plans to follow up with Dr. Haskins on all of these topics come thursday. asked for TMS patient education, nursing staff on S1 to print him some information today. reports his anxiety and depression are high today, but he denies SI. per staff, med-compliant. lidocaine to lower back for lumbago. c/o constipation, given MOM, awaiting results. sleeping well. anx 6, dep 7. Mental Status Exam Mental Status Exam Patient Appearance: Well Grooomed Patient Orientation: Person Level of Consciousness: Drowsy Patient Behavior: Cooperative Mood Description: Depressed and Anxious Affect Description: Constricted Ability to Follow Directions: Good Speech Pattern: Appropriate Hallucinations: None Delusions: Not Present Thought Process: Linear Thought Content: positive for Circumstantial Depressive Symptoms: Increased Anxiety, Feelings of Worthlessness, Isolating- Friends/Family and Low Self Esteem Judgement: Fair Diagnostics Vital Signs (24Hr): Vital Signs - 24 hr 10/11/21 20:53 10/12/21 09:04 10/12/21 09:09 Temperature 97.9 F 97.3 F Pulse Rate 70 77 77 Respiratory Rate 18 16 Blood Pressure 113/64 118/64 118/64 Pulse Oximetry 94 94 10/12/21 09:11 Temperature Pulse Rate 77 Respiratory Rate Blood Pressure 118/64 Pulse Oximetry Body Mass Index 30.2 Labs Results: 10/01/21 19:18 10/01/21 19:18 Medications Medications Current Medications Acetaminophen (Acetaminophen 325 Mg Tablet) 650 mg PO Q6H PRN PRN Reason: Headache/Pain Mild Scale (1-3) Last Admin: 10/08/21 02:53 Dose: 650 mg Documented by: Acetaminophen (Acetaminophen 325 Mg Tablet) 650 mg PO Q6H PRN PRN Reason: Pain (Scale Score 1-3) Al Hydroxide/Mg Hydroxide (Magnesium Hydrox/Alum Hydrox 30 Ml Oral.Susp) 30 ml PO Q6H PRN PRN Reason: Heartburn/Nausea Albuterol Sulfate (Albuterol Sulfate 90 Mcg 8 Gm Inhaler) 2 puff INHALE Q6H PRN PRN Reason: Shortness Of Breath Last Admin: 10/09/21 10:32 Dose: 2 puff Documented by: Amlodipine Besylate (Amlodipine Besylate 10 Mg Tablet) 10 mg PO DAILY [facility]; Protocol Last Admin: 10/12/21 09:11 Dose: 10 mg Documented by: Artificial Tears (Artificial Tears 15 Ml Drops) 1 drop EYE-BOTH Q1H PRN PRN Reason: Dry Eye(S) Last Admin: 10/10/21 10:16 Dose: 1 drop Documented by: Brexpiprazole (Brexpiprazole 1 Mg Tablet) 1 mg PO DAILY [facility] Last Admin: 10/12/21 09:10 Dose: 1 mg Documented by: Docusate Sodium (Docusate Sodium 100 Mg Capsule) 100 mg PO BEDTIME PRN PRN Reason: Constipation Last Admin: 10/11/21 20:32 Dose: 100 mg Documented by: Docusate Sodium (Docusate Sodium 100 Mg Capsule) 100 mg PO BID PRN PRN Reason: Constipation Last Admin: 10/10/21 14:28 Dose: 100 mg Documented by: Escitalopram Oxalate (Escitalopram Oxalate 5 Mg Tablet) 5 mg PO DAILY [facility] Last Admin: 10/12/21 09:11 Dose: 5 mg Documented by: Finasteride (Finasteride 5 Mg Tablet) 5 mg PO DAILY [facility] Last Admin: 10/12/21 09:08 Dose: 5 mg Documented by: Gabapentin (Gabapentin 400 Mg Capsule) 400 mg PO TID [facility] Last Admin: 10/12/21 09:09 Dose: 400 mg Documented by: Hydrocortisone (Hydrocortisone 1 % Cream 28.35 Gm Tube) 1 appl TOPICAL Q4H PRN; Protocol PRN Reason: RECTAL IRRITATION Last Admin: 10/08/21 20:44 Dose: 1 appl Documented by: Hydroxyzine HCl (Hydroxyzine Hcl 25 Mg Tablet) 25 mg PO BEDTIME PRN PRN Reason: Anxiety Last Admin: 10/08/21 02:54 Dose: 25 mg Documented by: Ibuprofen (Ibuprofen 400 Mg Tablet) 400 mg PO Q6H PRN PRN Reason: Pain, Moderate (Pain Scale 4-6 Last Admin: 10/12/21 03:22 Dose: 400 mg Documented by: Lamotrigine (Lamotrigine 100 Mg Tablet) 200 mg PO BID [facility] Last Admin: 10/12/21 09:10 Dose: 200 mg Documented by: Latanoprost (Latanoprost 0.005 % Ophth No 2.5 Ml Drops) 1 drop EYE-BOTH BEDTIME [facility] Last Admin: 10/11/21 20:30 Dose: 1 drop Documented by: Lidocaine (Lidocaine 4 % Patch Adh..Patch) 1 patch TRANSDERMA DAILY [facility]; Protocol Last Admin: 10/12/21 09:08 Dose: 1 patch Documented by: Lisinopril (Lisinopril 40 Mg Tablet) 40 mg PO DAILY [facility]; Protocol Last Admin: 10/12/21 09:09 Dose: 40 mg Documented by: Lorazepam (Lorazepam 0.5 Mg Tablet) 0.5 mg PO Q4H PRN PRN Reason: anxiety/restlessness Last Admin: 10/12/21 05:27 Dose: 0.5 mg Documented by: Magnesium Hydroxide (Milk Of Magnesia 30 Ml Oral.Susp) 30 ml PO DAILY PRN PRN Reason: Constipation Last Admin: 10/11/21 15:55 Dose: 30 ml Documented by: Magnesium Hydroxide (Milk Of Magnesia 30 Ml Oral.Susp) 30 ml PO Q72H PRN PRN Reason: Constipation Melatonin (Melatonin 3 Mg Tablet) 6 mg PO BEDTIME [facility] Last Admin: 10/11/21 20:32 Dose: 6 mg Documented by: Miconazole Nitrate (Miconazole 2 % Extra Thick Cr 56.7 Gm Tube) 1 appl TOPICAL BID [facility]; Protocol Last Admin: 10/12/21 09:26 Dose: Not Given Documented by: Mirtazapine (Mirtazapine 15 Mg Tablet) 45 mg PO BEDTIME [facility] Last Admin: 10/11/21 20:33 Dose: 45 mg Documented by: Multivitamins/Vitamin C (Multivitamin Tablet) 1 tab PO DAILY [facility] Last Admin: 10/12/21 09:09 Dose: 1 tab Documented by: Pharmacy Consult (Consult Rx Other Drug Dosing) 1 each MISCELLANE DAILY PRN PRN Reason: Consult order Polyethylene Glycol (Polyethylene Glycol 3350 17 Gm Powd.Pack) 17 gm PO DAILY PRN PRN Reason: Constipation Last Admin: 10/05/21 15:53 Dose: 17 gm Documented by: Polyethylene Glycol (Polyethylene Glycol 3350 17 Gm Powd.Pack) 17 gm PO CLAUDE LY@1600 [facility] Last Admin: 10/11/21 15:53 Dose: 17 gm Documented by: Quetiapine Fumarate (Quetiapine Fumarate 25 Mg Tablet) 25 mg PO BID PRN PRN Reason: Anxiety Trazodone HCl (Trazodone Hcl 50 Mg Tablet) 50 mg PO BEDTIME PRN PRN Reason: Insomnia Last Admin: 10/01/21 23:41 Dose: 50 mg Documented by: Trazodone HCl (Trazodone Hcl 100 Mg Tablet) 300 mg PO BEDTIME [facility] Last Admin: 10/11/21 20:31 Dose: 300 mg Documented by: Vortioxetine (Vortioxetine Hydrobromide 10 Mg Tablet) 20 mg PO DAILY [facility] Last Admin: 10/12/21 09:10 Dose: 20 mg Documented by: Allergies Allergies Allergy/AdvReac Type Severity Reaction Status Date / Time fentanyl [FENTANYL] Allergy Intermediate unknown Verified 05/22/21 11:43 Assessment & Plan Assessment & Plan (1) Depression: Status: Acute Code(s): F32.A - Depression, unspecified Assessment and Plan: The patient is an elderly male with a long history of major depressive disorder and TBI, admitted before, very well known by the service.? He has been admitted for exacerbation of depression with suicidal ideation without a clear stressor.? Historically, the patient responds to ECT. Plan: continue per primary treatment team. 1. Gather collateral information from the intermediate. 2 Trintellix increased taper rexulti secondary to tremor monitor response encourage more intensive outpatient treatment which patient has resisted 3. hold ect unclear if has been effective (2) HTN (hypertension): Status: Acute Code(s): I10 - Essential (primary) hypertension Assessment and Plan: Patient had tremor on or Rexulti with no significant improvement will change to Latuda studies suggesting may be helpful for depression including non bipolar depression consider a transitional ECT next week encourage change in outpatient plan I spent minutes with the patient and/or on the patient floor today, greater than?50% of which was spent counseling/coordinating care. Reason for contiued inpatient stay Substantial Risk for: harm to self, inability to function and rapid dec ompensation
[2021-10-12] MEDS: Artificial Tears 15 ML DROPS 1 DROP EYE-BOTH (14:13)
[2021-10-12] MEDS: polyethylene glycoL 3350 17 GM POWD.PACK PO (16:14)
[2021-10-12 18:41] LABS: Lamotrigine Lamictal 7.2 mcg/mL (4.0-18.0)
[2021-10-12 20:20] VITALS: BP 135/72; PULSE 68; RESP 20; TEMP 36.2; O2SAT 95
[2021-10-12] MEDS: Latanoprost 0.005 % Ophth Sol 2.5 ML DROPS 1 DROP EYE-BOTH (20:37)
[2021-10-12] MEDS: Melatonin 3 MG TABLET 6 MG PO (20:41)
[2021-10-12] MEDS: traZODone HCL 100 MG TABLET 300 MG PO (20:41)
[2021-10-12] MEDS: Mirtazapine 15 MG TABLET 45 MG PO (20:43)
[2021-10-13] MEDS: Acetaminophen 325 MG TABLET 650 MG PO (02:02)
[2021-10-13] MEDS: Ibuprofen 400 MG TABLET PO (03:52)
[2021-10-13] MEDS: LORazepam 0.5 MG TABLET PO (03:52)
[2021-10-13 06:00] VITALS: BP 105/63; PULSE 77; RESP 16; TEMP 37; O2SAT 98
[2021-10-13 09:48] VITALS: BP 105/63; PULSE 77
[2021-10-13] MEDS: lamoTRIgine 100 MG TABLET 200 MG PO ×2 (09:48→21:09)
[2021-10-13] MEDS: lisinopriL 40 MG TABLET PO (09:48)
[2021-10-13] MEDS: Finasteride 5 MG TABLET PO (09:48)
[2021-10-13] MEDS: Brexpiprazole 1 MG TABLET PO (09:48)
[2021-10-13] MEDS: Gabapentin 400 MG CAPSULE PO ×3 (09:48→21:09)
[2021-10-13] MEDS: Vortioxetine Hydrobromide 10 MG TABLET 20 MG PO (09:48)
[2021-10-13 09:49] VITALS: BP 105/63; PULSE 77
[2021-10-13] MEDS: Escitalopram Oxalate 5 MG TABLET PO (09:49)
[2021-10-13] MEDS: amLODIPine Besylate 10 MG TABLET PO (09:49)
[2021-10-13] MEDS: Multivitamin TABLET 1 TAB PO (09:49)
--- NOTE | 2021-10-13 11:03 | P.PNPSI_ITS ---
Subjective Subjective Date of Service: 10/13/21 Reason For Visit: MDD Service Interim History: pt loquacious, personable, pleasant. cover some of the same ground we did yesterday, such as TMS concerns, ECT concerns, tremor with latuda concerns. pt is referred to speak with Dr. Haskins tomorrow on these matters. he reports he did receive information from [facility] ross about TMS but has not had the opportunity to read it thoroughly yet. no other questions or complaints. per staff, calm and cooperative. VSS WNL. received info on TMS. Mental Status Exam Mental Status Exam Patient Appearance: Well Grooomed Patient Orientation: Person Level of Consciousness: Drowsy Patient Behavior: Cooperative Mood Description: Depressed and Anxious Affect Description: Constricted Ability to Follow Directions: Good Speech Pattern: Appropriate Hallucinations: None Delusions: Not Present Thought Process: Linear Thought Content: positive for Circumstantial Depressive Symptoms: Increased Anxiety, Feelings of Worthlessness, Isolating- Friends/Family and Low Self Esteem Judgement: Fair Diagnostics Vital Signs (24Hr): Vital Signs - 24 hr 10/12/21 20:20 10/13/21 09:48 10/13/21 09:49 Temperature 97.1 F Pulse Rate 68 77 77 Respiratory Rate 20 Blood Pressure 135/72 105/63 105/63 Pulse Oximetry 95 Body Mass Index 30.2 Labs Results: 10/01/21 19:18 10/01/21 19:18 Labs: Laboratory Results - last 48 hr 10/09/21 07:37 Lamotrigine 7.2 Medications Medications Current Medications Acetaminophen (Acetaminophen 325 Mg Tablet) 650 mg PO Q6H PRN PRN Reason: Headache/Pain Mild Scale (1-3) Last Admin: 10/08/21 02:53 Dose: 650 mg Documented by: Acetaminophen (Acetaminophen 325 Mg Tablet) 650 mg PO Q6H PRN PRN Reason: Pain (Scale Score 1-3) Last Admin: 10/13/21 02:02 Dose: 650 mg Documented by: Al Hydroxide/Mg Hydroxide (Magnesium Hydrox/Alum Hydrox 30 Ml Oral.Susp) 30 ml PO Q6H PRN PRN Reason: Heartburn/Nausea Albuterol Sulfate (Albuterol Sulfate 90 Mcg 8 Gm Inhaler) 2 puff INHALE Q6H PRN PRN Reason: Shortness Of Breath Last Admin: 10/09/21 10:32 Dose: 2 puff Documented by: Amlodipine Besylate (Amlodipine Besylate 10 Mg Tablet) 10 mg PO DAILY [facility]; Protocol Last Admin: 10/13/21 09:49 Dose: 10 mg Documented by: Artificial Tears (Artificial Tears 15 Ml Drops) 1 drop EYE-BOTH Q1H PRN PRN Reason: Dry Eye(S) Last Admin: 10/12/21 14:13 Dose: 1 drop Documented by: Brexpiprazole (Brexpiprazole 1 Mg Tablet) 1 mg PO DAILY [facility] Last Admin: 10/13/21 09:48 Dose: 1 mg Documented by: Docusate Sodium (Docusate Sodium 100 Mg Capsule) 100 mg PO BEDTIME PRN PRN Reason: Constipation Last Admin: 10/11/21 20:32 Dose: 100 mg Documented by: Docusate Sodium (Docusate Sodium 100 Mg Capsule) 100 mg PO BID PRN PRN Reason: Constipation Last Admin: 10/10/21 14:28 Dose: 100 mg Documented by: Escitalopram Oxalate (Escitalopram Oxalate 5 Mg Tablet) 5 mg PO DAILY [facility] Last Admin: 10/13/21 09:49 Dose: 5 mg Documented by: Finasteride (Finasteride 5 Mg Tablet) 5 mg PO DAILY [facility] Last Admin: 10/13/21 09:48 Dose: 5 mg Documented by: Gabapentin (Gabapentin 400 Mg Capsule) 400 mg PO TID [facility] Last Admin: 10/13/21 09:48 Dose: 400 mg Documented by: Hydrocortisone (Hydrocortisone 1 % Cream 28.35 Gm Tube) 1 appl TOPICAL Q4H PRN; Protocol PRN Reason: RECTAL IRRITATION Last Admin: 10/08/21 20:44 Dose: 1 appl Documented by: Hydroxyzine HCl (Hydroxyzine Hcl 25 Mg Tablet) 25 mg PO BEDTIME PRN PRN Reason: Anxiety Last Admin: 10/08/21 02:54 Dose: 25 mg Documented by: Ibuprofen (Ibuprofen 400 Mg Tablet) 400 mg PO Q6H PRN PRN Reason: Pain, Moderate (Pain Scale 4-6 Last Admin: 10/13/21 03:52 Dose: 400 mg Documented by: Lamotrigine (Lamotrigine 100 Mg Tablet) 200 mg PO BID [facility] Last Admin: 10/13/21 09:48 Dose: 200 mg Documented by: Latanoprost (Latanoprost 0.005 % Ophth No 2.5 Ml Drops) 1 drop EYE-BOTH BEDTIME [facility] Last Admin: 10/12/21 20:37 Dose: 1 drop Documented by: Lidocaine (Lidocaine 4 % Patch Adh..Patch) 1 patch TRANSDERMA DAILY [facility]; Protocol Last Admin: 10/13/21 10:16 Dose: Not Given Documented by: Lisinopril (Lisinopril 40 Mg Tablet) 40 mg PO DAILY [facility]; Protocol Last Admin: 10/13/21 09:48 Dose: 40 mg Documented by: Lorazepam (Lorazepam 0.5 Mg Tablet) 0.5 mg PO Q4H PRN PRN Reason: anxiety/restlessness Last Admin: 10/13/21 03:52 Dose: 0.5 mg Documented by: Magnesium Hydroxide (Milk Of Magnesia 30 Ml Oral.Susp) 30 ml PO DAILY PRN PRN Reason: Constipation Last Admin: 10/11/21 15:55 Dose: 30 ml Documented by: Magnesium Hydroxide (Milk Of Magnesia 30 Ml Oral.Susp) 30 ml PO Q72H PRN PRN Reason: Constipation Melatonin (Melatonin 3 Mg Tablet) 6 mg PO BEDTIME [facility] Last Admin: 10/12/21 20:41 Dose: 6 mg Documented by: Miconazole Nitrate (Miconazole 2 % Extra Thick Cr 56.7 Gm Tube) 1 appl TOPICAL BID [facility]; Protocol Last Admin: 10/13/21 10:16 Dose: Not Given Documented by: Mirtazapine (Mirtazapine 15 Mg Tablet) 45 mg PO BEDTIME [facility] Last Admin: 10/12/21 20:43 Dose: 45 mg Documented by: Multivitamins/Vitamin C (Multivitamin Tablet) 1 tab PO DAILY [facility] Last Admin: 10/13/21 09:49 Dose: 1 tab Documented by: Pharmacy Consult (Consult Rx Other Drug Dosing) 1 each MISCELLANE DAILY PRN PRN Reason: Consult order Polyethylene Glycol (Polyethylene Glycol 3350 17 Gm Powd.Pack) 17 gm PO DAILY PRN PRN Reason: Constipation Last Admin: 10/05/21 15:53 Dose: 17 gm Documented by: Polyethylene Glycol (Polyethylene Glycol 3350 17 Gm Powd.Pack) 17 gm PO DAILY@1600 [facility] Last Admin: 10/12/21 16:14 Dose: 17 gm Documented by: Quetiapine Fumarate (Quetiapine Fumarate 25 Mg Tablet) 25 mg PO BID PRN PRN Reason: Anxiety Trazodone HCl (Trazodone Hcl 50 Mg Tablet) 50 mg PO BEDTIME PRN PRN Reason: Insomnia Last Admin: 10/01/21 23:41 Dose: 50 mg Documented by: Trazodone HCl (Trazodone Hcl 100 Mg Tablet) 300 mg PO BEDTIME [facility] Last Admin: 10/12/21 20:41 Dose: 300 mg Documented by: Vortioxetine (Vortioxetine Hydrobromide 10 Mg Tablet) 20 mg PO DAILY [facility] Last Admin: 10/13/21 09:48 Dose: 20 mg Documented by: Allergies Allergies Allergy/AdvReac Type Severity Reaction Status Date / Time fentanyl [FENTANYL] Allergy Intermediate unknown Verified 05/22/21 11:43 Assessment & Plan Assessment & Plan (1) Depression: Status: Acute Code(s): F32.A - Depression, unspecified Assessment and Plan: The patient is an elderly male with a long history of major depressive disorder and TBI, admitted before, very well known by the service.? He has been admitted for exacerbation of depression with suicidal ideation without a clear stressor.? Historically, the patient responds to ECT. Plan: continue per primary treatment team. 1. Gather collateral information from the halfway. 2 Trintellix increased taper rexulti secondary to tremor monitor response encourage more intensive outpatient treatment which patient has resisted 3. hold ect unclear if has been effective (2) HTN (hypertension): Status: Acute Code(s): I10 - Essential (primary) hypertension Assessment and Plan: Patient had tremor on or Rexulti with no significant improvement will change to Latuda studies suggesting may be helpful for depression including non bipolar depression consider a transitional ECT next week encourage change in outpatient plan I spent minutes with the patient and/or on the patient floor today, greater than?50% of which was spent counseling/coordinating care. Reason for contiued inpatient stay Substantial Risk for: harm to self, inability to function and rapid decompensation
[2021-10-13 12:06] LABS: Vitamin D 25-OH, D2 <4 ng/mL; Vitamin D 25-OH, D3 25 ng/mL; Vitamin D 25-OH, Total 25 ng/mL (30-100)
[2021-10-13] MEDS: polyethylene glycoL 3350 17 GM POWD.PACK PO (16:47)
[2021-10-13 20:30] VITALS: BP 139/67; PULSE 66; RESP 18; TEMP 36.8; O2SAT 96
[2021-10-13] MEDS: Mirtazapine 15 MG TABLET 45 MG PO (21:09)
[2021-10-13] MEDS: Melatonin 3 MG TABLET 6 MG PO (21:09)
[2021-10-13] MEDS: traZODone HCL 100 MG TABLET 300 MG PO (21:09)
[2021-10-13] MEDS: Latanoprost 0.005 % Ophth Sol 2.5 ML DROPS 1 DROP EYE-BOTH (21:09)
[2021-10-13] MEDS: Docusate Sodium 100 MG CAPSULE PO (21:13)
[2021-10-14] MEDS: Ibuprofen 400 MG TABLET PO (04:00)
[2021-10-14] MEDS: QUEtiapine Fumarate 25 MG TABLET PO (04:07)
[2021-10-14 09:15] VITALS: BP 168/83; PULSE 86; RESP 18; TEMP 36.4; O2SAT 96
[2021-10-14 09:16] VITALS: BP 168/83; PULSE 86
[2021-10-14] MEDS: Multivitamin TABLET 1 TAB PO (09:16)
[2021-10-14] MEDS: amLODIPine Besylate 10 MG TABLET PO (09:16)
[2021-10-14 09:17] VITALS: BP 168/83; PULSE 86
[2021-10-14] MEDS: lisinopriL 40 MG TABLET PO (09:17)
[2021-10-14] MEDS: Gabapentin 400 MG CAPSULE PO ×2 (09:17→21:09)
[2021-10-14] MEDS: lamoTRIgine 100 MG TABLET 200 MG PO ×2 (09:17→21:10)
[2021-10-14] MEDS: Escitalopram Oxalate 5 MG TABLET PO (09:17)
[2021-10-14] MEDS: Brexpiprazole 1 MG TABLET PO (09:17)
[2021-10-14] MEDS: Vortioxetine Hydrobromide 10 MG TABLET 20 MG PO (09:17)
[2021-10-14] MEDS: Finasteride 5 MG TABLET PO (09:20)
[2021-10-14] MEDS: Docusate Sodium 100 MG CAPSULE PO (09:23)
[2021-10-14] MEDS: Lidocaine 4 % Patch ADH..PATCH 1 PATCH TRANSDERMA (12:50)
--- NOTE | 2021-10-14 12:58 | ECG_ITS ---
Test Reason : ? Blood Pressure : / mmHG Vent. Rate : 076 BPM Atrial Rate : 076 BPM P-R Int : 188 ms QRS Dur : 096 ms QT Int : 394 ms P-R-T Axes : 023 -06 083 degrees QTc Int : 443 ms Normal sinus rhythm Nonspecific T wave abnormality Lateral leads Left axis deviation Abnormal ECG When compared with ECG of 01-OCT-2021 19:29, No significant change was found Referred By: Francois Alexander Electronically Signed By:BONNIE NOYOLA MD
[2021-10-14] MEDS: traZODone HCL 100 MG TABLET 300 MG PO (21:10)
[2021-10-14] MEDS: Melatonin 3 MG TABLET 6 MG PO (21:10)
[2021-10-14] MEDS: Mirtazapine 15 MG TABLET 45 MG PO (21:10)
[2021-10-14] MEDS: LORazepam 1 MG TABLET PO (21:15)
[2021-10-14] MEDS: Latanoprost 0.005 % Ophth Sol 2.5 ML DROPS 1 DROP EYE-BOTH (21:15)
--- NOTE | 2021-10-14 22:47 | P.PNPSI_ITS ---
Subjective Subjective Date of Service: 10/14/21 Reason For Visit: MDD Service Subjective Notes: Conditional Voluntary Healthcare Proxy: No Guardianship: No Interim History: pt depressed anxious ruminating feeling worse Medication Compliance: Yes Side effects from medications: Yes Review of Systems Acute medical concerns: Yes vague cp no change on ekg l hand tremor no rigidity Mental Status Exam Mental Status Exam Patient Appearance: Well Grooomed Patient Orientation: Person Level of Consciousness: Awake and Alert Patient Behavior: Cooperative and Aggressive Mood Description: Depressed, Anxious and Apprehensive Affect Description: Constricted and Apprehensive Ability to Follow Directions: Good Speech Pattern: Appropriate Hallucinations: None Delusions: Not Present Thought Process: Linear Thought Content: positive for Circumstantial Depressive Symptoms: Increased Anxiety, Feelings of Worthlessness, Isolating- Friends/Family and Low Self Esteem Judgement: Fair Diagnostics Vital Signs (24Hr): Vital Signs - 24 hr 10/14/21 09:15 10/14/21 09:16 10/14/21 09:17 Temperature 97.6 F Pulse Rate 86 86 86 Respiratory Rate 18 Blood Pressure 168/83 H 168/83 H 168/83 H Pulse Oximetry 96 Body Mass Index 30.2 Labs Results: 10/01/21 19:18 10/01/21 19:18 Labs: Laboratory Results - last 48 hr 10/09/21 07:37 25-OH Vitamin D Total 25 L 25-Hydroxy Vitamin D2 <4 25-Hydroxy Vitamin D3 25 Medications Medications Current Medications Acetaminophen (Acetaminophen 325 Mg Tablet) 650 mg PO Q6H PRN PRN Reason: Headache/Pain Mild Scale (1-3) Last Admin: 10/08/21 02:53 Dose: 650 mg Documented by: Acetaminophen (Acetaminophen 325 Mg Tablet) 650 mg PO Q6H PRN PRN Reason: Pain (Scale Score 1-3) Last Admin: 10/13/21 02:02 Dose: 650 mg Documented by: Al Hydroxide/Mg Hydroxide (Magnesium Hydrox/Alum Hydrox 30 Ml Oral.Susp) 30 ml PO Q6H PRN PRN Reason: Heartburn/Nausea Albuterol Sulfate (Albuterol Sulfate 90 Mcg 8 Gm Inhaler) 2 puff INHALE Q6H PRN PRN Reason: Shortness Of Breath Last Admin: 10/09/21 10:32 Dose: 2 puff Documented by: Amlodipine Besylate (Amlodipine Besylate 10 Mg Tablet) 10 mg PO DAILY [facility]; Protocol Last Admin: 10/14/21 09:16 Dose: 10 mg Documented by: Artificial Tears (Artificial Tears 15 Ml Drops) 1 drop EYE-BOTH Q1H PRN PRN Reason: Dry Eye(S) Last Admin: 10/12/21 14:13 Dose: 1 drop Documented by: Docusate Sodium (Docusate Sodium 100 Mg Capsule) 100 mg PO BEDTIME PRN PRN Reason: Constipation Last Admin: 10/13/21 21:13 Dose: 100 mg Documented by: Docusate Sodium (Docusate Sodium 100 Mg Capsule) 100 mg PO BID PRN PRN Reason: Constipation Last Admin: 10/14/21 09:23 Dose: 100 mg Documented by: Finasteride (Finasteride 5 Mg Tablet) 5 mg PO DAILY [facility] Last Admin: 10/14/21 09:20 Dose: 5 mg Documented by: Gabapentin (Gabapentin 400 Mg Capsule) 400 mg PO TID [facility] Last Admin: 10/14/21 21:09 Dose: 400 mg Documented by: Hydrocortisone (Hydrocortisone 1 % Cream 28.35 Gm Tube) 1 appl TOPICAL Q4H PRN; Protocol PRN Reason: RECTAL IRRITATION Last Admin: 10/08/21 20:44 Dose: 1 appl Documented by: Hydroxyzine HCl (Hydroxyzine Hcl 25 Mg Tablet) 25 mg PO BEDTIME PRN PRN Reason: Anxiety Last Admin: 10/08/21 02:54 Dose: 25 mg Documented by: Ibuprofen (Ibuprofen 400 Mg Tablet) 400 mg PO Q6H PRN PRN Reason: Pain, Moderate (Pain Scale 4-6 Last Admin: 10/14/21 04:00 Dose: 400 mg Documented by: Lamotrigine (Lamotrigine 100 Mg Tablet) 200 mg PO BID [facility] Last Admin: 10/14/21 21:10 Dose: 200 mg Documented by: Latanoprost (Latanoprost 0.005 % Ophth No 2.5 Ml Drops) 1 drop EYE-BOTH BEDTIME [facility] Last Admin: 10/14/21 21:15 Dose: 1 drop Documented by: Lidocaine (Lidocaine 4 % Patch Adh..Patch) 1 patch TRANSDERMA DAILY [facility]; Protocol Last Admin: 10/14/21 12:50 Dose: 1 patch Documented by: Lisinopril (Lisinopril 40 Mg Tablet) 40 mg PO DAILY [facility]; Protocol Last Admin: 10/14/21 09:17 Dose: 40 mg Documented by: Lorazepam (Lorazepam 0.5 Mg Tablet) 0.5 mg PO Q4H PRN PRN Reason: anxiety/restlessness Lorazepam (Lorazepam 1 Mg Tablet) 1 mg PO BEDTIME [facility] Last Admin: 10/14/21 21:15 Dose: 1 mg Documented by: Lorazepam (Lorazepam 0.5 Mg Tablet) 0.5 mg PO DAILY [facility] Magnesium Hydroxide (Milk Of Magnesia 30 Ml Oral.Susp) 30 ml PO DAILY PRN PRN Reason: Constipation Last Admin: 10/11/21 15:55 Dose: 30 ml Documented by: Magnesium Hydroxide (Milk Of Magnesia 30 Ml Oral.Susp) 30 ml PO Q72H PRN PRN Reason: Constipation Melatonin (Melatonin 3 Mg Tablet) 6 mg PO BEDTIME [facility] Last Admin: 10/14/21 21:10 Dose: 6 mg Documented by: Miconazole Nitrate (Miconazole 2 % Extra Thick Cr 56.7 Gm Tube) 1 appl TOPICAL BID [facility]; Protocol Last Admin: 10/14/21 21:19 Dose: Not Given Documented by: Mirtazapine (Mirtazapine 15 Mg Tablet) 45 mg PO BEDTIME [facility] Last Admin: 10/14/21 21:10 Dose: 45 mg Documented by: Multivitamins/Vitamin C (Multivitamin Tablet) 1 tab PO DAILY [facility] Last Admin: 10/14/21 09:16 Dose: 1 tab Documented by: Pharmacy Consult (Consult Rx Other Drug Dosing) 1 each MISCELLANE DAILY PRN PRN Reason: Consult order Polyethylene Glycol (Polyethylene Glycol 3350 17 Gm Powd.Pack) 17 gm PO DAILY PRN PRN Reason: Constipation Last Admin: 10/05/21 15:53 Dose: 17 gm Documented by: Polyethylene Glycol (Polyethylene Glycol 3350 17 Gm Powd.Pack) 17 gm PO DAILY@1600 [facility] Last Admin: 10/14/21 22:30 Dose: Not Given Documented by: Quetiapine Fumarate (Quetiapine Fumarate 25 Mg Tablet) 25 mg PO BID PRN PRN Reason: Anxiety Last Admin: 10/14/21 04:07 Dose: 25 mg Documented by: Trazodone HCl (Trazodone Hcl 50 Mg Tablet) 50 mg PO BEDTIME PRN PRN Reason: Insomnia Last Admin: 10/01/21 23:41 Dose: 50 mg Documented by: Trazodone HCl (Trazodone Hcl 100 Mg Tablet) 300 mg PO BEDTIME [facility] Last Admin: 10/14/21 21:10 Dose: 300 mg Documented by: Vortioxetine (Vortioxetine Hydrobromide 10 Mg Tablet) 10 mg PO DAILY [facility] Allergies Allergies Allergy/AdvReac Type Severity Reaction Status Date / Time fentanyl [FENTANYL] Allergy Intermediate unknown Verified 05/22/21 11:43 Assessment & Plan Assessment & Plan (1) Depression: Status: Acute Code(s): F32.A - Depression, unspecified Assessment and Plan: The patient is an elderly male with a long history of major depressive disorder and TBI, admitted before, very well known by the service.? He has been admitted for exacerbation of depression with suicidal ideation without a clear stressor.? Historically, the patient responds to ECT. Plan: reconsider ect stop rexulti lower trintellix may contribute tremor and anxiety z? latuda ? seroquel (2) HTN (hypertension): Status: Acute Code(s): I10 - Essential (primary) hypertension Assessment and Plan: Patient had tremor on or Rexulti with no significant improvement will change to Latuda studies suggesting may be helpful for depression including non bipolar depression consider a transitional ECT next week encourage change in outpatient plan I spent minutes with the patient and/or on the patient floor today, greater than?50% of which was spent counseling/coordinating care. Reason for contiued inpatient stay Substantial Risk for: harm to self and rapid decompensation
[2021-10-15 01:39] VITALS: BP 131/87; PULSE 73; RESP 18; TEMP 36.6; O2SAT 93
[2021-10-15] MEDS: Ibuprofen 400 MG TABLET PO (04:36)
[2021-10-15 09:21] LABS: Estimated Average Glucose 105 mg/dL; Hemoglobin A1c % 5.3 %
[2021-10-15 10:04] VITALS: BP 154/71; PULSE 69
[2021-10-15] MEDS: lisinopriL 40 MG TABLET PO (10:04)
[2021-10-15] MEDS: Gabapentin 400 MG CAPSULE PO ×2 (10:04→14:51)
[2021-10-15] MEDS: LORazepam 0.5 MG TABLET PO ×2 (10:05→14:50)
[2021-10-15] MEDS: Finasteride 5 MG TABLET PO (10:05)
[2021-10-15 10:06] VITALS: BP 154/71; PULSE 69
[2021-10-15] MEDS: amLODIPine Besylate 10 MG TABLET PO (10:06)
[2021-10-15] MEDS: lamoTRIgine 100 MG TABLET 200 MG PO (10:06)
[2021-10-15] MEDS: Vortioxetine Hydrobromide 10 MG TABLET PO (10:08)
[2021-10-15] MEDS: Multivitamin TABLET 1 TAB PO (10:08)
[2021-10-15 10:42] VITALS: BP 154/71; PULSE 69; RESP 16; TEMP 36.7; O2SAT 16
[2021-10-15] MEDS: Albuterol Sulfate 90 MCG 8 GM INHALER 2 PUFF INHALE (11:38)
[2021-10-15] MEDS: polyethylene glycoL 3350 17 GM POWD.PACK PO (16:03)
[2021-10-15] MEDS: Docusate Sodium 100 MG CAPSULE PO (20:18)
[2021-10-15] MEDS: hydrOXYzine HCL 25 MG TABLET PO (20:19)
[2021-10-15] MEDS: Mirtazapine 15 MG TABLET 45 MG PO (20:19)
[2021-10-15] MEDS: Latanoprost 0.005 % Ophth Sol 2.5 ML DROPS 1 DROP EYE-BOTH (20:19)
[2021-10-15 20:24] VITALS: BP 147/74; PULSE 66; RESP 19; TEMP 36.6; O2SAT 95
--- NOTE | 2021-10-15 20:57 | P.PNPSI_ITS ---
Subjective Subjective Date of Service: 10/15/21 Reason For Visit: MDD Service Subjective Notes: Conditional Voluntary Healthcare Proxy: No Interim History: PATIENT SEEN IN PSYCHIATRIC FOLLOW-UP PATIENT'S MOOD SEEMS PERHAPS SOMEWHAT IMPROVED LESS AGITATED WITH DECREASE IN TRINTELLIX REXULTI DISCONTINUED ECT SCHEDULED FOR TOMORROW Medication Compliance: Yes Mental Status Exam Mental Status Exam Patient Appearance: Well Grooomed Patient Orientation: Person Level of Consciousness: Awake and Alert Patient Behavior: Cooperative Mood Description: Depressed, Anxious and Apprehensive Affect Description: Constricted and Apprehensive Ability to Follow Directions: Good Speech Pattern: Appropriate Hallucinations: None Delusions: Not Present Thought Process: Linear Thought Content: positive for Circumstantial Depressive Symptoms: Increased Anxiety, Feelings of Worthlessness, Isolating- Friends/Family and Low Self Esteem Judgement: Fair Diagnostics Vital Signs (24Hr): Vital Signs - 24 hr 10/15/21 01:39 10/15/21 10:04 10/15/21 10:06 Temperature 97.9 F Pulse Rate 73 69 69 Respiratory Rate 18 Blood Pressure 131/87 154/71 H 154/71 H Pulse Oximetry 93 10/15/21 10:42 10/15/21 20:24 Temperature 98.1 F 98 F Pulse Rate 69 66 Respiratory Rate 16 19 Blood Pressure 154/71 H 147/74 H Pulse Oximetry 16 L 95 Body Mass Index 30.2 Labs Results: 10/01/21 19:18 10/01/21 19:18 Labs: Laboratory Results - last 48 hr 10/15/21 06:42 Estimat Average Glucose 105 Hemoglobin A1c % 5.3 Medications Medications Current Medications Acetaminophen (Acetaminophen 325 Mg Tablet) 650 mg PO Q6H PRN PRN Reason: Headache/Pain Mild Scale (1-3) Last Admin: 10/08/21 02:53 Dose: 650 mg Documented by: Acetaminophen (Acetaminophen 325 Mg Tablet) 650 mg PO Q6H PRN PRN Reason: Pain (Scale Score 1-3) Last Admin: 10/13/21 02:02 Dose: 650 mg Documented by: Al Hydroxide/Mg Hydroxide (Magnesium Hydrox/Alum Hydrox 30 Ml Oral.Susp) 30 ml PO Q6H PRN PRN Reason: Heartburn/Nausea Albuterol Sulfate (Albuterol Sulfate 90 Mcg 8 Gm Inhaler) 2 puff INHALE Q6H PRN PRN Reason: Shortness Of Breath Last Admin: 10/15/21 11:38 Dose: 2 puff Documented by: Amlodipine Besylate (Amlodipine Besylate 10 Mg Tablet) 10 mg PO DAILY [facility]; Protocol Last Admin: 10/15/21 10:06 Dose: 10 mg Documented by: Artificial Tears (Artificial Tears 15 Ml Drops) 1 drop EYE-BOTH Q1H PRN PRN Reason: Dry Eye(S) Last Admin: 10/12/21 14:13 Dose: 1 drop Documented by: Docusate Sodium (Docusate Sodium 100 Mg Capsule) 100 mg PO BEDTIME PRN PRN Reason: Constipation Last Admin: 10/15/21 20:18 Dose: 100 mg Documented by: Docusate Sodium (Docusate Sodium 100 Mg Capsule) 100 mg PO BID PRN PRN Reason: Constipation Last Admin: 10/14/21 09:23 Dose: 100 mg Documented by: Finasteride (Finasteride 5 Mg Tablet) 5 mg PO DAILY [facility] Last Admin: 10/15/21 10:05 Dose: 5 mg Documented by: Gabapentin (Gabapentin 400 Mg Capsule) 400 mg PO TID [facility] Last Admin: 10/15/21 20:09 Dose: Not Given Documented by: Hydrocortisone (Hydrocortisone 1 % Cream 28.35 Gm Tube) 1 appl TOPICAL Q4H PRN; Protocol PRN Reason: RECTAL IRRITATION Last Admin: 10/08/21 20:44 Dose: 1 appl Documented by: Hydroxyzine HCl (Hydroxyzine Hcl 25 Mg Tablet) 25 mg PO BEDTIME PRN PRN Reason: Anxiety Last Admin: 10/15/21 20:19 Dose: 25 mg Documented by: Ibuprofen (Ibuprofen 400 Mg Tablet) 400 mg PO Q6H PRN PRN Reason: Pain, Moderate (Pain Scale 4-6 Last Admin: 10/15/21 04:36 Dose: 400 mg Documented by: Lamotrigine (Lamotrigine 100 Mg Tablet) 200 mg PO BID [facility] Last Admin: 10/15/21 20:10 Dose: Not Given Documented by: Latanoprost (Latanoprost 0.005 % Ophth No 2.5 Ml Drops) 1 drop EYE-BOTH BEDTIME [facility] Last Admin: 10/15/21 20:19 Dose: 1 drop Documented by: Lidocaine (Lidocaine 4 % Patch Adh..Patch) 1 patch TRANSDERMA DAILY [facility]; Protocol Last Admin: 10/15/21 10:07 Dose: Not Given Documented by: Lisinopril (Lisinopril 40 Mg Tablet) 40 mg PO DAILY [facility]; Protocol Last Admin: 10/15/21 10:04 Dose: 40 mg Documented by: Lorazepam (Lorazepam 0.5 Mg Tablet) 0.5 mg PO Q4H PRN PRN Reason: anxiety/restlessness Last Admin: 10/15/21 14:50 Dose: 0.5 mg Documented by: Lorazepam (Lorazepam 1 Mg Tablet) 1 mg PO BEDTIME [facility] Last Admin: 10/15/21 20:10 Dose: Not Given Documented by: Lorazepam (Lorazepam 0.5 Mg Tablet) 0.5 mg PO DAILY [facility] Last Admin: 10/15/21 10:05 Dose: 0.5 mg Documented by: Magnesium Hydroxide (Milk Of Magnesia 30 Ml Oral.Susp) 30 ml PO DAILY PRN PRN Reason: Constipation Last Admin: 10/11/21 15:55 Dose: 30 ml Documented by: Magnesium Hydroxide (Milk Of Magnesia 30 Ml Oral.Susp) 30 ml PO Q72H PRN PRN Reason: Constipation Melatonin (Melatonin 3 Mg Tablet) 6 mg PO BEDTIME [facility] Last Admin: 10/14/21 21:10 Dose: 6 mg Documented by: Miconazole Nitrate (Miconazole 2 % Extra Thick Cr 56.7 Gm Tube) 1 appl TOPICAL BID [facility]; Protocol Last Admin: 10/15/21 10:08 Dose: Not Given Documented by: Mirtazapine (Mirtazapine 15 Mg Tablet) 45 mg PO BEDTIME [facility] Last Admin: 10/15/21 20:19 Dose: 45 mg Documented by: Multivitamins/Vitamin C (Multivitamin Tablet) 1 tab PO DAILY [facility] Last Admin: 10/15/21 10:08 Dose: 1 tab Documented by: Pharmacy Consult (Consult Rx Other Drug Dosing) 1 each MISCELLANE DAILY PRN PRN Reason: Consult order Polyethylene Glycol (Polyethylene Glycol 3350 17 Gm Powd.Pack) 17 gm PO DAILY PRN PRN Reason: Constipation Last Admin: 10/05/21 15:53 Dose: 17 gm Documented by: Polyethylene Glycol (Polyethylene Glycol 3350 17 Gm Powd.Pack) 17 gm PO DAILY@1600 [facility] Last Admin: 10/15/21 16:03 Dose: 17 gm Documented by: Quetiapine Fumarate (Quetiapine Fumarate 25 Mg Tablet) 25 mg PO BID PRN PRN Reason: Anxiety Last Admin: 10/14/21 04:07 Dose: 25 mg Documented by: Trazodone HCl (Trazodone Hcl 50 Mg Tablet) 50 mg PO BEDTIME PRN PRN Reason: Insomnia Last Admin: 10/01/21 23:41 Dose: 50 mg Documented by: Trazodone HCl (Trazodone Hcl 100 Mg Tablet) 300 mg PO BEDTIME [facility] Last Admin: 10/14/21 21:10 Dose: 300 mg Documented by: Vortioxetine (Vortioxetine Hydrobromide 10 Mg Tablet) 10 mg PO DAILY [facility] Last Admin: 10/15/21 10:08 Dose: 10 mg Documented by: Allergies Allergies Allergy/AdvReac Type Severity Reaction Status Date / Time fentanyl [FENTANYL] Allergy Intermediate unknown Verified 05/22/21 11:43 Assessment & Plan Assessment & Plan (1) Depression: Status: Acute Code(s): F32.A - Depression, unspecified Assessment and Plan: The patient is an elderly male with a long history of major depressive disorder and TBI, admitted before, very well known by the service.? He has been admitted for exacerbation of depression with suicidal ideation without a clear stressor.? Historically, the patient responds to ECT. Plan: reconsider ect stop rexulti lower trintellix may contribute tremor and anxiety z? latuda ? seroquel (2) HTN (hypertension): Status: Acute Code(s): I10 - Essential (primary) hypertension Assessment and Plan: Patient had tremor on or Rexulti NO DISCONTINUED ECT FOR TOMORROW DISCHARGE PLANNING ENCOURAGE OUTPATIENT ACTIVATION BEHAVIORAL STIMULATION MONITOR RESPONSE TO ECT SUGGEST CONSIDERATION OF CHANGING SUCCINYLCHOLINE TO NONDEPOLARIZING AN AGENT REVIEWED WITH I spent minutes with the patient and/or on the patient floor today, greater than?50% of which was spent counseling/coordinating care. Reason for contiued inpatient stay Substantial Risk for: harm to self and rapid decompensation
[2021-10-15] MEDS: traZODone HCL 100 MG TABLET 300 MG PO (21:52)
[2021-10-15] MEDS: Melatonin 3 MG TABLET 6 MG PO (21:52)
[2021-10-16] VITALS (12 sets, daily range): BP systolic 142–193; BP diastolic 74–98; PULSE 65–90; RESP 16–23; TEMP 36.1–36.8; O2SAT 91–99
[2021-10-16] MEDS: amLODIPine Besylate 10 MG TABLET PO (05:09)
[2021-10-16] MEDS: Ibuprofen 400 MG TABLET PO ×2 (05:09→17:34)
[2021-10-16] MEDS: lisinopriL 40 MG TABLET PO (05:10)
--- NOTE | 2021-10-16 13:07 | MHC.SHP ---
Pre-Procedural Eval Section A Date of Service: 10/16/21 The patient is an INPATIENT: Yes Changes since office visit: No Cold of Flu in the past 2 weeks, No New Medical Problems, No Changes in Medication and No Patient answered all questions The History & Physical has been completed within 30 days and I have reviewed it.: Yes Section B Chief Complaint: MDD Service Details of Present Illness: Exacerbation of depression with SI Relevant Family History (Specify if Yes): No Relevant Social History: Alcohol Use (in the past) Present Medications: see Short Stay Collaborative assessment Medical History: No relevant PMH History of Previous Operations: No relevant previous surgery Allergies: Allergies Allergy/AdvReac Type Severity Reaction Status Date / Time fentanyl [FENTANYL] Allergy Intermediate unknown Verified 05/22/21 11:43 Review of Systems Sugical H&P ROS: Negative: Constitution, Cardiovascular, Respiratory, Neurological, Hem-Onc, Allergic/Immunologic, Gastrointestinal, Genitourinary, Musculoskeletal, Integumentary, Endocrine and Eyes/Ears/Nose/Throat and Yes, Specify: Psychiatric (depression) Exam Surgical H&P Exam: Normal: HEENT, Normal: Heart, Normal: Lungs, Normal: Extremities, Normal: Abdomen, Normal: Skin and Normal: Neurological Plan Diagnosis/Plan: Unchanged I have reviewed the history and physical and performed a pertinent physical examination on my patient. No changes have occurred unless specified.
--- NOTE | 2021-10-16 13:19 | HO.ECTPROC ---
ECT Procedure Note Diagnosis/Treatment Date of Service: 10/16/21 Diagnosis: Major Depressive Disorder Current Treatment Number: 2 Treatment: Maintenance Interval Clinical Notes: The patient remains depressed ECT Settings Device: THYMATRON DGx Electrode Placement: Bifrontal Program/Pulse Width: 0.50 Energy Percent: 100 Seizure Duration By EEG (in seconds): 0 (not registered by EEG but seizure activity up to 51s) By Motor Observation (in seconds): 43 Medications Administration General Anesthetic: Etomidate (15) Muscle Relaxant: Succinylcholine (lowered to 70) Ancillary Medications Analgesics: Torodol - Pre ECT Anti-emetics: Zofran - Pre ECT Miscillaneous Medications: Propofol Airway Management Airway Management: Bag Mask Ventilation Treatment Recommendations No Changes Recommended: No change Pt Tolerated Procedure w/o Issue: Yes
[2021-10-16] MEDS: Finasteride 5 MG TABLET PO (14:38)
[2021-10-16] MEDS: Gabapentin 400 MG CAPSULE PO ×2 (14:39→20:46)
[2021-10-16] MEDS: Vortioxetine Hydrobromide 10 MG TABLET PO (14:39)
--- NOTE | 2021-10-16 15:47 | HO.PSYCHPN ---
Subjective Subjective Date of Service: 10/16/21 Reason For Visit: MDD Service Subjective Notes: Conditional Voluntary Healthcare Proxy: No Guardianship: No Medication Compliance: Yes Side effects from medications: Yes Attending Groups: Intermittent Review of Systems tremor pain Mental Status Exam Mental Status Exam Patient Appearance: Well Grooomed Patient Orientation: Person Level of Consciousness: Awake and Alert Patient Behavior: Cooperative Mood Description: Depressed, Anxious and Apprehensive Affect Description: Constricted and Apprehensive Ability to Follow Directions: Good Speech Pattern: Appropriate Memory Description: Intact Hallucinations: None Delusions: Not Present Thought Process: Linear Thought Content: positive for Obsessional Thoughts and positive for Circumstantial Depressive Symptoms: Increased Anxiety, Feelings of Worthlessness, Isolating-Friends/Family and Low Self Esteem Judgement: Fair Diagnostics Vital Signs (24Hr): Vital Signs - 24 hr 10/15/21 20:24 10/16/21 05:09 10/16/21 05:10 Temperature 98 F 97 F Pulse Rate 66 67 67 Respiratory Rate 19 19 Blood Pressure 147/74 H 148/74 H 148/74 H Pulse Oximetry 95 96 10/16/21 05:15 10/16/21 09:12 10/16/21 12:26 Temperature 97 F 98 F Pulse Rate 67 67 90 Respiratory Rate 19 16 Blood Pressure 148/74 H 148/74 H 193/90 H Pulse Oximetry 96 96 99 10/16/21 13:38 10/16/21 13:43 10/16/21 13:48 Temperature 97.6 F Pulse Rate 80 75 73 Respiratory Rate 23 H 18 19 Blood Pressure 173/98 H 149/82 H 153/90 H Pulse Oximetry 91 L 93 94 10/16/21 13:53 10/16/21 14:08 10/16/21 14:42 Temperature 97.7 F Pulse Rate 72 71 71 Respiratory Rate 16 18 16 Blood Pressure 149/88 H 142/80 H 147/78 H Pulse Oximetry 95 93 96 BMI result Body Mass Index 30.2 Labs Results: 10/01/21 19:18 10/01/21 19:18 Labs: Laboratory Results - last 48 hr 10/15/21 06:42 Estimat Average Glucose 105 Hemoglobin A1c % 5.3 Medications Medications Current Medications Acetaminophen (Acetaminophen 325 Mg Tablet) 650 mg PO Q6H PRN PRN Reason: Headache/Pain Mild Scale (1-3) Last Admin: 10/08/21 02:53 Dose: 650 mg Documented by: Acetaminophen (Acetaminophen 325 Mg Tablet) 650 mg PO Q6H PRN PRN Reason: Pain (Scale Score 1-3) Last Admin: 10/13/21 02:02 Dose: 650 mg Documented by: Al Hydroxide/Mg Hydroxide (Magnesium Hydrox/Alum Hydrox 30 Ml Oral.Susp) 30 ml PO Q6H PRN PRN Reason: Heartburn/Nausea Albuterol Sulfate (Albuterol Sulfate 90 Mcg 8 Gm Inhaler) 2 puff INHALE Q6H PRN PRN Reason: Shortness Of Breath Last Admin: 10/15/21 11:38 Dose: 2 puff Documented by: Amlodipine Besylate (Amlodipine Besylate 10 Mg Tablet) 10 mg PO DAILY [facility]; Protocol Last Admin: 10/16/21 05:09 Dose: 10 mg Documented by: Artificial Tears (Artificial Tears 15 Ml Drops) 1 drop EYE-BOTH Q1H PRN PRN Reason: Dry Eye(S) Last Admin: 10/12/21 14:13 Dose: 1 drop Documented by: Docusate Sodium (Docusate Sodium 100 Mg Capsule) 100 mg PO BEDTIME PRN PRN Reason: Constipation Last Admin: 10/15/21 20:18 Dose: 100 mg Documented by: Docusate Sodium (Docusate Sodium 100 Mg Capsule) 100 mg PO BID PRN PRN Reason: Constipation Last Admin: 10/14/21 09:23 Dose: 100 mg Documented by: Finasteride (Finasteride 5 Mg Tablet) 5 mg PO DAILY [facility] Last Admin: 10/16/21 14:38 Dose: 5 mg Documented by: Gabapentin (Gabapentin 400 Mg Capsule) 400 mg PO TID [facility] Last Admin: 10/16/21 14:39 Dose: 400 mg Documented by: Hydrocortisone (Hydrocortisone 1 % Cream 28.35 Gm Tube) 1 appl TOPICAL Q4H PRN; Protocol PRN Reason: RECTAL IRRITATION Last Admin: 10/08/21 20:44 Dose: 1 appl Documented by: Hydroxyzine HCl (Hydroxyzine Hcl 25 Mg Tablet) 25 mg PO BEDTIME PRN PRN Reason: Anxiety Last Admin: 10/15/21 20:19 Dose: 25 mg Documented by: Ibuprofen (Ibuprofen 400 Mg Tablet) 400 mg PO Q6H PRN PRN Reason: Pain, Moderate (Pain Scale 4-6 Last Admin: 10/16/21 05:09 Dose: 400 mg Documented by: Lamotrigine (Lamotrigine 100 Mg Tablet) 200 mg PO BID [facility] Last Admin: 10/16/21 14:34 Dose: Not Given Documented by: Latanoprost (Latanoprost 0.005 % Ophth No 2.5 Ml Drops) 1 drop EYE-BOTH BEDTIME [facility] Last Admin: 10/15/21 20:19 Dose: 1 drop Documented by: Lidocaine (Lidocaine 4 % Patch Adh..Patch) 1 patch TRANSDERMA DAILY [facility]; Protocol Last Admin: 10/16/21 14:34 Dose: Not Given Documented by: Lisinopril (Lisinopril 40 Mg Tablet) 40 mg PO DAILY [facility]; Protocol Last Admin: 10/16/21 05:10 Dose: 40 mg Documented by: Lorazepam (Lorazepam 0.5 Mg Tablet) 0.5 mg PO Q4H PRN PRN Reason: anxiety/restlessness Last Admin: 10/15/21 14:50 Dose: 0.5 mg Documented by: Lorazepam (Lorazepam 1 Mg Tablet) 1 mg PO BEDTIME TAZ Last Admin: 10/15/21 20:10 Dose: Not Given Documented by: Lorazepam (Lorazepam 0.5 Mg Tablet) 0.5 mg PO DAILY [facility] Last Admin: 10/16/21 14:34 Dose: Not Given Documented by: Magnesium Hydroxide (Milk Of Magnesia 30 Ml Oral.Susp) 30 ml PO DAILY PRN PRN Reason: Constipation Last Admin: 10/11/21 15:55 Dose: 30 ml Documented by: Magnesium Hydroxide (Milk Of Magnesia 30 Ml Oral.Susp) 30 ml PO Q72H PRN PRN Reason: Constipation Melatonin (Melatonin 3 Mg Tablet) 6 mg PO BEDTIME [facility] Last Admin: 10/15/21 21:52 Dose: 6 mg Documented by: Miconazole Nitrate (Miconazole 2 % Extra Thick Cr 56.7 Gm Tube) 1 appl TOPICAL BID [facility]; Protocol Last Admin: 10/16/21 14:35 Dose: Not Given Documented by: Mirtazapine (Mirtazapine 15 Mg Tablet) 45 mg PO BEDTIME [facility] Last Admin: 10/15/21 20:19 Dose: 45 mg Documented by: Multivitamins/Vitamin C (Multivitamin Tablet) 1 tab PO DAILY [facility] Last Admin: 10/16/21 14:35 Dose: Not Given Documented by: Pharmacy Consult (Consult Rx Other Drug Dosing) 1 each MISCELLANE DAILY PRN PRN Reason: Consult order Polyethylene Glycol (Polyethylene Glycol 3350 17 Gm Powd.Pack) 17 gm PO DAILY PRN PRN Reason: Constipation Last Admin: 10/05/21 15:53 Dose: 17 gm Documented by: Polyethylene Glycol (Polyethylene Glycol 3350 17 Gm Powd.Pack) 17 gm PO DAILY@1600 TAZ Last Admin: 10/15/21 16:03 Dose: 17 gm Documented by: Quetiapine Fumarate (Quetiapine Fumarate 25 Mg Tablet) 25 mg PO BID PRN PRN Reason: Anxiety Last Admin: 10/14/21 04:07 Dose: 25 mg Documented by: Trazodone HCl (Trazodone Hcl 50 Mg Tablet) 50 mg PO BEDTIME PRN PRN Reason: Insomnia Last Admin: 10/01/21 23:41 Dose: 50 mg Documented by: Trazodone HCl (Trazodone Hcl 100 Mg Tablet) 300 mg PO BEDTIME [facility] Last Admin: 10/15/21 21:52 Dose: 300 mg Documented by: Vortioxetine (Vortioxetine Hydrobromide 10 Mg Tablet) 10 mg PO DAILY [facility] Last Admin: 10/16/21 14:39 Dose: 10 mg Documented by: Allergies Allergies Allergy/AdvReac Type Severity Reaction Status Date / Time fentanyl [FENTANYL] Allergy Intermediate unknown Verified 05/22/21 11:43 Assessment & Plan Assessment & Plan (1) Depression: Status: Acute Code(s): F32.A - Depression, unspecified Assessment and Plan: The patient is an elderly male with a long history of major depressive disorder and TBI, admitted before, very well known by the service.? He has been admitted for exacerbation of depression with suicidal ideation without a clear stressor.? Historically, the patient responds to ECT. Plan: ect stop rexulti 10 mg trintellix may contribute tremor and anxiety (2) HTN (hypertension): Status: Acute Code(s): I10 - Essential (primary) hypertension Assessment and Plan: cont tx plan Assessment and Plan: Patient had tremor on or Rexulti NO DISCONTINUED ECT FOR TOMORROW DISCHARGE PLANNING ENCOURAGE OUTPATIENT ACTIVATION BEHAVIORAL STIMULATION MONITOR RESPONSE TO ECT SUGGEST CONSIDERATION OF CHANGING SUCCINYLCHOLINE TO NONDEPOLARIZING AN AGENT REVIEWED WITH I spent minutes with the patient and/or on the patient floor today, greater than?50% of which was spent counseling/coordinating care. Reason for contiued inpatient stay Substantial Risk for: harm to self and rapid decompensation
[2021-10-16] MEDS: polyethylene glycoL 3350 17 GM POWD.PACK PO (16:09)
[2021-10-16] MEDS: Acetaminophen 325 MG TABLET 650 MG PO (19:41)
[2021-10-16] MEDS: Docusate Sodium 100 MG CAPSULE PO (19:41)
[2021-10-16] MEDS: Latanoprost 0.005 % Ophth Sol 2.5 ML DROPS 1 DROP EYE-BOTH (20:45)
[2021-10-16] MEDS: traZODone HCL 100 MG TABLET 300 MG PO (20:45)
[2021-10-16] MEDS: LORazepam 1 MG TABLET PO (20:45)
[2021-10-16] MEDS: Melatonin 3 MG TABLET 6 MG PO (20:45)
[2021-10-16] MEDS: lamoTRIgine 100 MG TABLET 200 MG PO (20:46)
[2021-10-16] MEDS: Mirtazapine 15 MG TABLET 45 MG PO (21:31)
[2021-10-17] MEDS: hydrOXYzine HCL 25 MG TABLET PO (04:26)
[2021-10-17] MEDS: Acetaminophen 325 MG TABLET 650 MG PO ×2 (04:30→21:02)
[2021-10-17] MEDS: Albuterol Sulfate 90 MCG 8 GM INHALER 2 PUFF INHALE ×2 (04:34→09:55)
[2021-10-17 06:00] VITALS: BP 109/71; PULSE 67; RESP 16; TEMP 36.4; O2SAT 96
[2021-10-17] MEDS: Gabapentin 400 MG CAPSULE PO ×3 (08:18→20:48)
[2021-10-17 08:19] VITALS: BP 109/71; PULSE 67
[2021-10-17] MEDS: amLODIPine Besylate 10 MG TABLET PO (08:19)
[2021-10-17] MEDS: Vortioxetine Hydrobromide 10 MG TABLET PO (08:19)
[2021-10-17] MEDS: Multivitamin TABLET 1 TAB PO (08:19)
[2021-10-17] MEDS: Finasteride 5 MG TABLET PO (08:19)
[2021-10-17] MEDS: lisinopriL 40 MG TABLET PO (08:19)
[2021-10-17] MEDS: lamoTRIgine 100 MG TABLET 200 MG PO ×2 (08:19→20:48)
[2021-10-17] MEDS: LORazepam 0.5 MG TABLET PO ×2 (08:20→13:25)
--- NOTE | 2021-10-17 10:10 | HO.PSYCHPN ---
Subjective Subjective Date of Service: 10/17/21 Reason For Visit: MDD SI Subjective Notes: Conditional Voluntary Healthcare Proxy: No Guardianship: No Interim History: Patient's case reviewed treatment team patient seen and meeting with group setting was able to discussed different living options and possibility of outpatient ECT Medication Compliance: Yes Side effects from medications: Yes Mental Status Exam Mental Status Exam Patient Appearance: Well Grooomed Patient Orientation: Person Level of Consciousness: Awake and Alert Patient Behavior: Cooperative Behavior Comments: Calmer more engaged Mood Description: Appropriate, Depressed, Anxious and Apprehensive Affect Description: Constricted and Apprehensive Ability to Follow Directions: Good Speech Pattern: Appropriate Memory Description: Intact Hallucinations: None Delusions: Not Present Thought Process: Linear Thought Content: positive for Obsessional Thoughts and positive for Circumstantial Depressive Symptoms: Increased Anxiety, Feelings of Worthlessness, Isolating-Friends/Family and Low Self Esteem Judgement: Fair Diagnostics Vital Signs (24Hr): Vital Signs - 24 hr 10/16/21 12:26 10/16/21 13:38 10/16/21 13:43 Temperature 98 F 97.6 F Pulse Rate 90 80 75 Respiratory Rate 16 23 H 18 Blood Pressure 193/90 H 173/98 H 149/82 H Pulse Oximetry 99 91 L 93 10/16/21 13:48 10/16/21 13:53 10/16/21 14:08 Temperature Pulse Rate 73 72 71 Respiratory Rate 19 16 18 Blood Pressure 153/90 H 149/88 H 142/80 H Pulse Oximetry 94 95 93 10/16/21 14:42 10/16/21 19:45 10/17/21 06:00 Temperature 97.7 F 98.3 F 97.6 F Pulse Rate 71 65 67 Respiratory Rate 16 18 16 Blood Pressure 147/78 H 142/83 H 109/71 Pulse Oximetry 96 97 96 10/17/21 08:19 Temperature Pulse Rate 67 Respiratory Rate Blood Pressure 109/71 Pulse Oximetry BMI result Body Mass Index 30.2 Labs Results: 10/01/21 19:18 10/01/21 19:18 Medications Medications Current Medications Acetaminophen (Acetaminophen 325 Mg Tablet) 650 mg PO Q6H PRN PRN Reason: Headache/Pain Mild Scale (1-3) Last Admin: 10/17/21 04:30 Dose: 650 mg Documented by: Acetaminophen (Acetaminophen 325 Mg Tablet) 650 mg PO Q6H PRN PRN Reason: Pain (Scale Score 1-3) Last Admin: 10/13/21 02:02 Dose: 650 mg Documented by: Al Hydroxide/Mg Hydroxide (Magnesium Hydrox/Alum Hydrox 30 Ml Oral.Susp) 30 ml PO Q6H PRN PRN Reason: Heartburn/Nausea Albuterol Sulfate (Albuterol Sulfate 90 Mcg 8 Gm Inhaler) 2 puff INHALE Q6H PRN PRN Reason: Shortness Of Breath Last Admin: 10/17/21 09:55 Dose: 2 puff Documented by: Amlodipine Besylate (Amlodipine Besylate 10 Mg Tablet) 10 mg PO DAILY [facility]; Protocol Last Admin: 10/17/21 08:19 Dose: 10 mg Documented by: Artificial Tears (Artificial Tears 15 Ml Drops) 1 drop EYE-BOTH Q1H PRN PRN Reason: Dry Eye(S) Last Admin: 10/12/21 14:13 Dose: 1 drop Documented by: Docusate Sodium (Docusate Sodium 100 Mg Capsule) 100 mg PO BEDTIME PRN PRN Reason: Constipation Last Admin: 10/16/21 19:41 Dose: 100 mg Documented by: Docusate Sodium (Docusate Sodium 100 Mg Capsule) 100 mg PO BID PRN PRN Reason: Constipation Last Admin: 10/14/21 09:23 Dose: 100 mg Documented by: Finasteride (Finasteride 5 Mg Tablet) 5 mg PO DAILY [facility] Last Admin: 10/17/21 08:19 Dose: 5 mg Documented by: Gabapentin (Gabapentin 400 Mg Capsule) 400 mg PO TID [facility] Last Admin: 10/17/21 08:18 Dose: 400 mg Documented by: Hydrocortisone (Hydrocortisone 1 % Cream 28.35 Gm Tube) 1 appl TOPICAL Q4H PRN; Protocol PRN Reason: RECTAL IRRITATION Last Admin: 10/08/21 20:44 Dose: 1 appl Documented by: Hydroxyzine HCl (Hydroxyzine Hcl 25 Mg Tablet) 25 mg PO BEDTIME PRN PRN Reason: Anxiety Last Admin: 10/17/21 04:26 Dose: 25 mg Documented by: Ibuprofen (Ibuprofen 400 Mg Tablet) 400 mg PO Q6H PRN PRN Reason: Pain, Moderate (Pain Scale 4-6 Last Admin: 10/16/21 17:34 Dose: 400 mg Documented by: Lamotrigine (Lamotrigine 100 Mg Tablet) 200 mg PO BID [facility] Last Admin: 10/17/21 08:19 Dose: 200 mg Documented by: Latanoprost (Latanoprost 0.005 % Ophth No 2.5 Ml Drops) 1 drop EYE-BOTH BEDTIME [facility] Last Admin: 10/16/21 20:45 Dose: 1 drop Documented by: Lidocaine (Lidocaine 4 % Patch Adh..Patch) 1 patch TRANSDERMA DAILY [facility]; Protocol Last Admin: 10/17/21 09:57 Dose: Not Given Documented by: Lisinopril (Lisinopril 40 Mg Tablet) 40 mg PO DAILY [facility]; Protocol Last Admin: 10/17/21 08:19 Dose: 40 mg Documented by: Lorazepam (Lorazepam 0.5 Mg Tablet) 0.5 mg PO Q4H PRN PRN Reason: anxiety/restlessness Last Admin: 10/15/21 14:50 Dose: 0.5 mg Documented by: Lorazepam (Lorazepam 1 Mg Tablet) 1 mg PO BEDTIME [facility] Last Admin: 10/16/21 20:45 Dose: 1 mg Documented by: Lorazepam (Lorazepam 0.5 Mg Tablet) 0.5 mg PO DAILY [facility] Last Admin: 10/17/21 08:20 Dose: 0.5 mg Documented by: Magnesium Hydroxide (Milk Of Magnesia 30 Ml Oral.Susp) 30 ml PO DAILY PRN PRN Reason: Constipation Last Admin: 10/11/21 15:55 Dose: 30 ml Documented by: Magnesium Hydroxide (Milk Of Magnesia 30 Ml Oral.Susp) 30 ml PO Q72H PRN PRN Reason: Constipation Melatonin (Melatonin 3 Mg Tablet) 6 mg PO BEDTIME [facility] Last Admin: 10/16/21 20:45 Dose: 6 mg Documented by: Miconazole Nitrate (Miconazole 2 % Extra Thick Cr 56.7 Gm Tube) 1 appl TOPICAL BID [facility]; Protocol Last Admin: 10/17/21 09:58 Dose: Not Given Documented by: Mirtazapine (Mirtazapine 15 Mg Tablet) 45 mg PO BEDTIME [facility] Last Admin: 10/16/21 21:31 Dose: 45 mg Documented by: Multivitamins/Vitamin C (Multivitamin Tablet) 1 tab PO DAILY [facility] Last Admin: 10/17/21 08:19 Dose: 1 tab Documented by: Pharmacy Consult (Consult Rx Other Drug Dosing) 1 each MISCELLANE DAILY PRN PRN Reason: Consult order Polyethylene Glycol (Polyethylene Glycol 3350 17 Gm Powd.Pack) 17 gm PO DAILY PRN PRN Reason: Constipation Last Admin: 10/05/21 15:53 Dose: 17 gm Documented by: Polyethylene Glycol (Polyethylene Glycol 3350 17 Gm Powd.Pack) 17 gm PO DAILY@1600 TAZ Last Admin: 10/16/21 16:09 Dose: 17 gm Documented by: Quetiapine Fumarate (Quetiapine Fumarate 25 Mg Tablet) 25 mg PO BID PRN PRN Reason: Anxiety Last Admin: 10/14/21 04:07 Dose: 25 mg Documented by: Trazodone HCl (Trazodone Hcl 50 Mg Tablet) 50 mg PO BEDTIME PRN PRN Reason: Insomnia Last Admin: 10/01/21 23:41 Dose: 50 mg Documented by: Trazodone HCl (Trazodone Hcl 100 Mg Tablet) 300 mg PO BEDTIME TAZ Last Admin: 10/16/21 20:45 Dose: 300 mg Documented by: Vortioxetine (Vortioxetine Hydrobromide 10 Mg Tablet) 10 mg PO DAILY [facility] Last Admin: 10/17/21 08:19 Dose: 10 mg Documented by: Allergies Allergies Allergy/AdvReac Type Severity Reaction Status Date / Time fentanyl [FENTANYL] Allergy Intermediate unknown Verified 05/22/21 11:43 Assessment & Plan Assessment & Plan (1) Depression: Status: Acute Code(s): F32.A - Depression, unspecified Assessment and Plan: The patient is an elderly male with a long history of major depressive disorder and TBI, admitted before, very well known by the service.? He has been admitted for exacerbation of depression with suicidal ideation without a clear stressor.? Historically, the patient responds to ECT. Plan: Patient seems improved Continue 10 mg trintellix mirtazapine Lamictal gabapentin discharge planning (2) HTN (hypertension): Status: Acute Code(s): I10 - Essential (primary) hypertension Assessment and Plan: cont tx plan Assessment and Plan: Patient had tremor on or Rexulti NO DISCONTINUED ECT FOR TOMORROW DISCHARGE PLANNING ENCOURAGE OUTPATIENT ACTIVATION BEHAVIORAL STIMULATION MONITOR RESPONSE TO ECT SUGGEST CONSIDERATION OF CHANGING SUCCINYLCHOLINE TO NONDEPOLARIZING AN AGENT REVIEWED WITH I spent minutes with the patient and/or on the patient floor today, greater than?50% of which was spent counseling/coordinating care. Reason for contiued inpatient stay Substantial Risk for: harm to self and rapid decompensation
[2021-10-17] MEDS: polyethylene glycoL 3350 17 GM POWD.PACK PO (16:55)
[2021-10-17 20:03] VITALS: BP 133/66; PULSE 70; RESP 17; TEMP 36.1; O2SAT 95
[2021-10-17] MEDS: Melatonin 3 MG TABLET 6 MG PO (20:48)
[2021-10-17] MEDS: LORazepam 1 MG TABLET PO (20:48)
[2021-10-17] MEDS: Latanoprost 0.005 % Ophth Sol 2.5 ML DROPS 1 DROP EYE-BOTH (20:48)
[2021-10-17] MEDS: Mirtazapine 15 MG TABLET 45 MG PO (20:49)
[2021-10-17] MEDS: traZODone HCL 100 MG TABLET 300 MG PO (20:49)
[2021-10-17] MEDS: Docusate Sodium 100 MG CAPSULE PO (21:01)
[2021-10-18] MEDS: LORazepam 0.5 MG TABLET PO ×2 (01:02→08:23)
[2021-10-18 06:00] VITALS: BP 156/106; PULSE 73; RESP 18; TEMP 36.3; O2SAT 95
[2021-10-18] MEDS: Ibuprofen 400 MG TABLET PO (06:28)
[2021-10-18 08:23] VITALS: BP 156/106; PULSE 73
[2021-10-18] MEDS: amLODIPine Besylate 10 MG TABLET PO (08:23)
[2021-10-18] MEDS: Gabapentin 400 MG CAPSULE PO ×3 (08:23→20:18)
[2021-10-18] MEDS: lamoTRIgine 100 MG TABLET 200 MG PO ×2 (08:24→20:17)
[2021-10-18] MEDS: Multivitamin TABLET 1 TAB PO (08:26)
[2021-10-18 08:27] VITALS: BP 156/106; PULSE 73
[2021-10-18] MEDS: Vortioxetine Hydrobromide 10 MG TABLET PO (08:27)
[2021-10-18] MEDS: lisinopriL 40 MG TABLET PO (08:27)
[2021-10-18] MEDS: Finasteride 5 MG TABLET PO (08:28)
[2021-10-18] MEDS: Miconazole 2 % Extra Thick Cr 56.7 Gm Tube 1 APPL TOPICAL (10:07)
[2021-10-18] MEDS: polyethylene glycoL 3350 17 GM POWD.PACK PO (13:33)
--- NOTE | 2021-10-18 17:23 | HO.PSYCHPN ---
Subjective Subjective Date of Service: 10/18/21 Reason For Visit: MDD SI Subjective Notes: Conditional Voluntary Healthcare Proxy: No Guardianship: No Interim History: Patient with general improvement more stability improved mood Mental Status Exam Mental Status Exam Narrative: Patient adequately groomed sitting in wheelchair. Patient with correia affect mood less depressed full range of affect less catastrophic thinking denies SI better able to cooperate with outpatient planning. Agreeable to outpatient physical therapy denies active SI no psychosis insight judgment improved Diagnostics Vital Signs (24Hr): Vital Signs - 24 hr 10/17/21 20:03 10/18/21 06:00 10/18/21 08:23 Temperature 97 F 97.4 F Pulse Rate 70 73 73 Respiratory Rate 17 18 Blood Pressure 133/66 156/106 H 156/106 H Pulse Oximetry 95 95 10/18/21 08:27 Temperature Pulse Rate 73 Respiratory Rate Blood Pressure 156/106 H Pulse Oximetry BMI result Body Mass Index 30.2 Labs Results: 10/01/21 19:18 10/01/21 19:18 Medications Medications Current Medications Acetaminophen (Acetaminophen 325 Mg Tablet) 650 mg PO Q6H PRN PRN Reason: Headache/Pain Mild Scale (1-3) Last Admin: 10/17/21 21:02 Dose: 650 mg Documented by: Acetaminophen (Acetaminophen 325 Mg Tablet) 650 mg PO Q6H PRN PRN Reason: Pain (Scale Score 1-3) Last Admin: 10/13/21 02:02 Dose: 650 mg Documented by: Al Hydroxide/Mg Hydroxide (Magnesium Hydrox/Alum Hydrox 30 Ml Oral.Susp) 30 ml PO Q6H PRN PRN Reason: Heartburn/Nausea Albuterol Sulfate (Albuterol Sulfate 90 Mcg 8 Gm Inhaler) 2 puff INHALE Q6H PRN PRN Reason: Shortness Of Breath Last Admin: 10/17/21 09:55 Dose: 2 puff Documented by: Amlodipine Besylate (Amlodipine Besylate 10 Mg Tablet) 10 mg PO DAILY [facility]; Protocol Last Admin: 10/18/21 08:23 Dose: 10 mg Documented by: Artificial Tears (Artificial Tears 15 Ml Drops) 1 drop EYE-BOTH Q1H PRN PRN Reason: Dry Eye(S) Last Admin: 10/12/21 14:13 Dose: 1 drop Documented by: Docusate Sodium (Docusate Sodium 100 Mg Capsule) 100 mg PO BEDTIME PRN PRN Reason: Constipation Last Admin: 10/16/21 19:41 Dose: 100 mg Documented by: Docusate Sodium (Docusate Sodium 100 Mg Capsule) 100 mg PO BID PRN PRN Reason: Constipation Last Admin: 10/17/21 21:01 Dose: 100 mg Documented by: Finasteride (Finasteride 5 Mg Tablet) 5 mg PO DAILY [facility] Last Admin: 10/18/21 08:28 Dose: 5 mg Documented by: Gabapentin (Gabapentin 400 Mg Capsule) 400 mg PO TID [facility] Last Admin: 10/18/21 13:34 Dose: 400 mg Documented by: Hydrocortisone (Hydrocortisone 1 % Cream 28.35 Gm Tube) 1 appl TOPICAL Q4H PRN; Protocol PRN Reason: RECTAL IRRITATION Last Admin: 10/08/21 20:44 Dose: 1 appl Documented by: Hydroxyzine HCl (Hydroxyzine Hcl 25 Mg Tablet) 25 mg PO BEDTIME PRN PRN Reason: Anxiety Last Admin: 10/17/21 04:26 Dose: 25 mg Documented by: Ibuprofen (Ibuprofen 400 Mg Tablet) 400 mg PO Q6H PRN PRN Reason: Pain, Moderate (Pain Scale 4-6 Last Admin: 10/18/21 06:28 Dose: 400 mg Documented by: Lamotrigine (Lamotrigine 100 Mg Tablet) 200 mg PO BID [facility] Last Admin: 10/18/21 08:24 Dose: 200 mg Documented by: Latanoprost (Latanoprost 0.005 % Ophth No 2.5 Ml Drops) 1 drop EYE-BOTH BEDTIME [facility] Last Admin: 10/17/21 20:48 Dose: 1 drop Documented by: Lidocaine (Lidocaine 4 % Patch Adh..Patch) 1 patch TRANSDERMA DAILY [facility]; Protocol Last Admin: 10/18/21 08:31 Dose: Not Given Documented by: Lisinopril (Lisinopril 40 Mg Tablet) 40 mg PO DAILY [facility]; Protocol Last Admin: 10/18/21 08:27 Dose: 40 mg Documented by: Lorazepam (Lorazepam 0.5 Mg Tablet) 0.5 mg PO Q4H PRN PRN Reason: anxiety/restlessness Last Admin: 10/18/21 01:02 Dose: 0.5 mg Documented by: Lorazepam (Lorazepam 1 Mg Tablet) 1 mg PO BEDTIME [facility]Z Last Admin: 10/17/21 20:48 Dose: 1 mg Documented by: Lorazepam (Lorazepam 0.5 Mg Tablet) 0.5 mg PO DAILY [facility] Last Admin: 10/18/21 08:23 Dose: 0.5 mg Documented by: Magnesium Hydroxide (Milk Of Magnesia 30 Ml Oral.Susp) 30 ml PO DAILY PRN PRN Reason: Constipation Last Admin: 10/11/21 15:55 Dose: 30 ml Documented by: Magnesium Hydroxide (Milk Of Magnesia 30 Ml Oral.Susp) 30 ml PO Q72H PRN PRN Reason: Constipation Melatonin (Melatonin 3 Mg Tablet) 6 mg PO BEDTIME [facility] Last Admin: 10/17/21 20:48 Dose: 6 mg Documented by: Miconazole Nitrate (Miconazole 2 % Extra Thick Cr 56.7 Gm Tube) 1 appl TOPICAL BID [facility]; Protocol Last Admin: 10/18/21 10:07 Dose: 1 appl Documented by: Mirtazapine (Mirtazapine 15 Mg Tablet) 45 mg PO BEDTIME [facility] Last Admin: 10/17/21 20:49 Dose: 45 mg Documented by: Multivitamins/Vitamin C (Multivitamin Tablet) 1 tab PO DAILY [facility] Last Admin: 10/18/21 08:26 Dose: 1 tab Documented by: Pharmacy Consult (Consult Rx Other Drug Dosing) 1 each MISCELLANE DAILY PRN PRN Reason: Consult order Polyethylene Glycol (Polyethylene Glycol 3350 17 Gm Powd.Pack) 17 gm PO DAILY PRN PRN Reason: Constipation Last Admin: 10/05/21 15:53 Dose: 17 gm Documented by: Polyethylene Glycol (Polyethylene Glycol 3350 17 Gm Powd.Pack) 17 gm PO DAILY@1600 [facility] Last Admin: 10/18/21 13:33 Dose: 17 gm Documented by: Quetiapine Fumarate (Quetiapine Fumarate 25 Mg Tablet) 25 mg PO BID PRN PRN Reason: Anxiety Last Admin: 10/14/21 04:07 Dose: 25 mg Documented by: Trazodone HCl (Trazodone Hcl 50 Mg Tablet) 50 mg PO BEDTIME PRN PRN Reason: Insomnia Last Admin: 10/01/21 23:41 Dose: 50 mg Documented by: Trazodone HCl (Trazodone Hcl 100 Mg Tablet) 300 mg PO BEDTIME [facility] Last Admin: 10/17/21 20:49 Dose: 300 mg Documented by: Vortioxetine (Vortioxetine Hydrobromide 10 Mg Tablet) 10 mg PO DAILY [facility] Last Admin: 10/18/21 08:27 Dose: 10 mg Documented by: Allergies Allergies Allergy/AdvReac Type Severity Reaction Status Date / Time fentanyl [FENTANYL] Allergy Intermediate unknown Verified 05/22/21 11:43 Assessment & Plan Assessment & Plan (1) Depression: Status: Acute Code(s): F32.A - Depression, unspecified Assessment and Plan: The patient is an elderly male with a long history of major depressive disorder and TBI, admitted before, very well known by the service.? He has been admitted for exacerbation of depression with suicidal ideation without a clear stressor.? Historically, the patient responds to ECT. Plan: Patient seems improved Continue 10 mg trintellix mirtazapine Lamictal gabapentin discharge planning referral for physical therapy outpatient schedule ECT outpatient in 2 weeks discharge planning referral to [facility] (2) HTN (hypertension): Status: Acute Code(s): I10 - Essential (primary) hypertension Assessment and Plan: cont tx plan Assessment and Plan: Patient had tremor on or Rexulti NO DISCONTINUED ECT FOR TOMORROW DISCHARGE PLANNING ENCOURAGE OUTPATIENT ACTIVATION BEHAVIORAL STIMULATION MONITOR RESPONSE TO ECT SUGGEST CONSIDERATION OF CHANGING SUCCINYLCHOLINE TO NONDEPOLARIZING AN AGENT REVIEWED WITH I spent minutes with the patient and/or on the patient floor today, greater than?50% of which was spent counseling/coordinating care. Reason for contiued inpatient stay Substantial Risk for: harm to self, inability to function and rapid decompensation
[2021-10-18 18:00] VITALS: BP 136/74; PULSE 70; RESP 18; TEMP 36.6; O2SAT 95
[2021-10-18] MEDS: Mirtazapine 15 MG TABLET 45 MG PO (20:17)
[2021-10-18] MEDS: traZODone HCL 100 MG TABLET 300 MG PO (20:18)
[2021-10-18] MEDS: LORazepam 1 MG TABLET PO (20:18)
[2021-10-18] MEDS: Melatonin 3 MG TABLET 6 MG PO (20:18)
[2021-10-18] MEDS: Docusate Sodium 100 MG CAPSULE PO (20:18)
[2021-10-18] MEDS: Latanoprost 0.005 % Ophth Sol 2.5 ML DROPS 1 DROP EYE-BOTH (20:19)
[2021-10-18] MEDS: Albuterol Sulfate 90 MCG 8 GM INHALER 2 PUFF INHALE (20:42)
[2021-10-18] MEDS: Acetaminophen 325 MG TABLET 650 MG PO (20:47)
[2021-10-19] MEDS: LORazepam 0.5 MG TABLET PO ×3 (04:14→11:39)
[2021-10-19] MEDS: Ibuprofen 400 MG TABLET PO (04:15)
[2021-10-19 07:30] VITALS: BP 162/84; PULSE 68; RESP 18; TEMP 36.5; O2SAT 98
[2021-10-19] MEDS: Finasteride 5 MG TABLET PO (08:41)
[2021-10-19] MEDS: lamoTRIgine 100 MG TABLET 200 MG PO ×2 (08:41→20:41)
[2021-10-19] MEDS: Gabapentin 400 MG CAPSULE PO ×3 (08:41→20:42)
[2021-10-19 08:42] VITALS: BP 162/84; PULSE 68
[2021-10-19] MEDS: lisinopriL 40 MG TABLET PO (08:42)
[2021-10-19 08:43] VITALS: BP 162/84; PULSE 68
[2021-10-19] MEDS: amLODIPine Besylate 10 MG TABLET PO (08:43)
[2021-10-19] MEDS: Multivitamin TABLET 1 TAB PO (08:43)
[2021-10-19] MEDS: Vortioxetine Hydrobromide 10 MG TABLET PO (08:43)
[2021-10-19] MEDS: Docusate Sodium 100 MG CAPSULE PO ×2 (09:38→20:41)
--- NOTE | 2021-10-19 14:10 | HO.PSYCHPN ---
Subjective Subjective Date of Service: 10/19/21 Reason For Visit: MDD SI Subjective Notes: Conditional Voluntary Medical Problems Affecting Mental Status: No Interim History: Patient reports feeling better compared to when he was admitted when he was suicidal and overwhelmed. Reports that being in the hospital is a false environment and safe for him and that he needs to get back out into the real world and face things. Feels that ECT was positive regarding mood overall and not feeling suicidal. Looking forward to monthly maintenance ECT and returning to living environment. Plan discharge Thursday10/21/2021. Later in day staff report that he did make some suicidal comments in the context of discharge ie if he was outside of the hospital he might consider rolling his wheelchair in front of traffic, which he has stated in prior admissions. Medication Compliance: Yes Side effects from medications: No Attending Groups: Yes Review of Systems Acute medical concerns: No Review of Systems Review of Systems Unremarkable Mental Status Exam Mental Status Exam Narrative: pleasant and engaged. In wheelchair. Casually dressed. Good hygiene. Affect was bright. Organized. No SI. No HI. No agitation. No psychosis. Insight judgment fair Diagnostics Vital Signs (24Hr): Vital Signs - 24 hr 10/18/21 18:00 10/19/21 07:30 10/19/21 08:42 Temperature 97.8 F 97.7 F Pulse Rate 70 68 68 Respiratory Rate 18 18 Blood Pressure 136/74 162/84 H 162/84 H Pulse Oximetry 95 98 10/19/21 08:43 Temperature Pulse Rate 68 Respiratory Rate Blood Pressure 162/84 H Pulse Oximetry BMI result Body Mass Index 30.2 Labs Results: 10/01/21 19:18 10/01/21 19:18 Medications Medications Current Medications Acetaminophen (Acetaminophen 325 Mg Tablet) 650 mg PO Q6H PRN PRN Reason: Headache/Pain Mild Scale (1-3) Last Admin: 10/18/21 20:47 Dose: 650 mg Documented by: Acetaminophen (Acetaminophen 325 Mg Tablet) 650 mg PO Q6H PRN PRN Reason: Pain (Scale Score 1-3) Last Admin: 10/13/21 02:02 Dose: 650 mg Documented by: Al Hydroxide/Mg Hydroxide (Magnesium Hydrox/Alum Hydrox 30 Ml Oral.Susp) 30 ml PO Q6H PRN PRN Reason: Heartburn/Nausea Albuterol Sulfate (Albuterol Sulfate 90 Mcg 8 Gm Inhaler) 2 puff INHALE Q6H PRN PRN Reason: Shortness Of Breath Last Admin: 10/18/21 20:42 Dose: 2 puff Documented by: Amlodipine Besylate (Amlodipine Besylate 10 Mg Tablet) 10 mg PO DAILY [facility]; Protocol Last Admin: 10/19/21 08:43 Dose: 10 mg Documented by: Artificial Tears (Artificial Tears 15 Ml Drops) 1 drop EYE-BOTH Q1H PRN PRN Reason: Dry Eye(S) Last Admin: 10/12/21 14:13 Dose: 1 drop Documented by: Docusate Sodium (Docusate Sodium 100 Mg Capsule) 100 mg PO BEDTIME PRN PRN Reason: Constipation Last Admin: 10/18/21 20:18 Dose: 100 mg Documented by: Docusate Sodium (Docusate Sodium 100 Mg Capsule) 100 mg PO BID PRN PRN Reason: Constipation Last Admin: 10/19/21 09:38 Dose: 100 mg Documented by: Finasteride (Finasteride 5 Mg Tablet) 5 mg PO DAILY [facility] Last Admin: 10/19/21 08:41 Dose: 5 mg Documented by: Gabapentin (Gabapentin 400 Mg Capsule) 400 mg PO TID [facility] Last Admin: 10/19/21 08:41 Dose: 400 mg Documented by: Hydrocortisone (Hydrocortisone 1 % Cream 28.35 Gm Tube) 1 appl TOPICAL Q4H PRN; Protocol PRN Reason: RECTAL IRRITATION Last Admin: 10/08/21 20:44 Dose: 1 appl Documented by: Hydroxyzine HCl (Hydroxyzine Hcl 25 Mg Tablet) 25 mg PO BEDTIME PRN PRN Reason: Anxiety Last Admin: 10/17/21 04:26 Dose: 25 mg Documented by: Ibuprofen (Ibuprofen 400 Mg Tablet) 400 mg PO Q6H PRN PRN Reason: Pain, Moderate (Pain Scale 4-6 Last Admin: 10/19/21 04:15 Dose: 400 mg Documented by: Lamotrigine (Lamotrigine 100 Mg Tablet) 200 mg PO BID [facility] Last Admin: 10/19/21 08:41 Dose: 200 mg Documented by: Latanoprost (Latanoprost 0.005 % Ophth No 2.5 Ml Drops) 1 drop EYE-BOTH BEDTIME [facility] Last Admin: 10/18/21 20:19 Dose: 1 drop Documented by: Lidocaine (Lidocaine 4 % Patch Adh..Patch) 1 patch TRANSDERMA DAILY [facility]; Protocol Last Admin: 10/18/21 08:31 Dose: Not Given Documented by: Lisinopril (Lisinopril 40 Mg Tablet) 40 mg PO DAILY [facility]; Protocol Last Admin: 10/19/21 08:42 Dose: 40 mg Documented by: Lorazepam (Lorazepam 0.5 Mg Tablet) 0.5 mg PO Q4H PRN PRN Reason: anxiety/restlessness Last Admin: 10/19/21 11:39 Dose: 0.5 mg Documented by: Lorazepam (Lorazepam 1 Mg Tablet) 1 mg PO BEDTIME [facility] Last Admin: 10/18/21 20:18 Dose: 1 mg Documented by: Lorazepam (Lorazepam 0.5 Mg Tablet) 0.5 mg PO DAILY [facility] Last Admin: 10/19/21 08:41 Dose: 0.5 mg Documented by: Magnesium Hydroxide (Milk Of Magnesia 30 Ml Oral.Susp) 30 ml PO DAILY PRN PRN Reason: Constipation Last Admin: 10/11/21 15:55 Dose: 30 ml Documented by: Magnesium Hydroxide (Milk Of Magnesia 30 Ml Oral.Susp) 30 ml PO Q72H PRN PRN Reason: Constipation Melatonin (Melatonin 3 Mg Tablet) 6 mg PO BEDTIME [facility] Last Admin: 10/18/21 20:18 Dose: 6 mg Documented by: Miconazole Nitrate (Miconazole 2 % Extra Thick Cr 56.7 Gm Tube) 1 appl TOPICAL BID [facility]; Protocol Last Admin: 10/18/21 21:44 Dose: Not Given Documented by: Mirtazapine (Mirtazapine 15 Mg Tablet) 45 mg PO BEDTIME [facility] Last Admin: 10/18/21 20:17 Dose: 45 mg Documented by: Multivitamins/Vitamin C (Multivitamin Tablet) 1 tab PO DAILY [facility] Last Admin: 10/19/21 08:43 Dose: 1 tab Documented by: Pharmacy Consult (Consult Rx Other Drug Dosing) 1 each MISCELLANE DAILY PRN PRN Reason: Consult order Polyethylene Glycol (Polyethylene Glycol 3350 17 Gm Powd.Pack) 17 gm PO DAILY PRN PRN Reason: Constipation Last Admin: 10/05/21 15:53 Dose: 17 gm Documented by: Polyethylene Glycol (Polyethylene Glycol 3350 17 Gm Powd.Pack) 17 gm PO DAILY@1600 [facility] Last Admin: 10/18/21 13:33 Dose: 17 gm Documented by: Quetiapine Fumarate (Quetiapine Fumarate 25 Mg Tablet) 25 mg PO BID PRN PRN Reason: Anxiety Last Admin: 10/14/21 04:07 Dose: 25 mg Documented by: Trazodone HCl (Trazodone Hcl 50 Mg Tablet) 50 mg PO BEDTIME PRN PRN Reason: Insomnia Last Admin: 10/01/21 23:41 Dose: 50 mg Documented by: Trazodone HCl (Trazodone Hcl 100 Mg Tablet) 300 mg PO BEDTIME [facility] Last Admin: 10/18/21 20:18 Dose: 300 mg Documented by: Vortioxetine (Vortioxetine Hydrobromide 10 Mg Tablet) 10 mg PO DAILY [facility] Last Admin: 10/19/21 08:43 Dose: 10 mg Documented by: Allergies Allergies Allergy/AdvReac Type Severity Reaction Status Date / Time fentanyl [FENTANYL] Allergy Intermediate unknown Verified 05/22/21 11:43 Assessment & Plan Assessment & Plan (1) Depression: Status: Acute Code(s): F32.A - Depression, unspecified Assessment and Plan: The patient is an elderly male with a long history of major depressive disorder and TBI, admitted before, very well known by the service.? He has been admitted for exacerbation of depression with suicidal ideation without a clear stressor.? Historically, the patient responds to ECT. Plan: Patient seems improved Continue 10 mg trintellix mirtazapine Lamictal gabapentin discharge planning 10/19/2021: As per primary team, plan discharge 10/21/2021Thursday and maintenance ECT (2) HTN (hypertension): Status: Acute Code(s): I10 - Essential (primary) hypertension Assessment and Plan: cont tx plan Assessment and Plan: Patient had tremor on or Rexulti NO DISCONTINUED ECT FOR TOMORROW DISCHARGE PLANNING ENCOURAGE OUTPATIENT ACTIVATION BEHAVIORAL STIMULATION MONITOR RESPONSE TO ECT SUGGEST CONSIDERATION OF CHANGING SUCCINYLCHOLINE TO NONDEPOLARIZING AN AGENT REVIEWED WITH I spent minutes with the patient and/or on the patient floor today, greater than?50% of which was spent counseling/coordinating care. Reason for contiued inpatient stay Substantial Risk for: rapid decompensation
[2021-10-19] MEDS: polyethylene glycoL 3350 17 GM POWD.PACK PO (15:23)
[2021-10-19 18:00] VITALS: BP 139/72; PULSE 68; RESP 20; TEMP 36.6; O2SAT 95
[2021-10-19 18:36] LABS: Lamotrigine Lamictal 8.9 mcg/mL (4.0-18.0)
[2021-10-19] MEDS: Melatonin 3 MG TABLET 6 MG PO (20:40)
[2021-10-19] MEDS: Mirtazapine 15 MG TABLET 45 MG PO (20:40)
[2021-10-19] MEDS: traZODone HCL 100 MG TABLET 300 MG PO (20:41)
[2021-10-19] MEDS: LORazepam 1 MG TABLET PO (20:41)
[2021-10-19] MEDS: Acetaminophen 325 MG TABLET 650 MG PO (20:42)
[2021-10-19] MEDS: Hydrocortisone 1 % Cream 28.35 GM TUBE 1 APPL TOPICAL (20:43)
[2021-10-19] MEDS: Albuterol Sulfate 90 MCG 8 GM INHALER 2 PUFF INHALE (20:43)
[2021-10-19] MEDS: Latanoprost 0.005 % Ophth Sol 2.5 ML DROPS 1 DROP EYE-BOTH (20:43)
[2021-10-20] MEDS: Ibuprofen 400 MG TABLET PO (04:34)
[2021-10-20] MEDS: QUEtiapine Fumarate 25 MG TABLET PO (04:39)
[2021-10-20 06:00] VITALS: BP 161/76; PULSE 64; RESP 18; TEMP 36.7; O2SAT 97
[2021-10-20] MEDS: Finasteride 5 MG TABLET PO (08:25)
[2021-10-20 08:26] VITALS: BP 161/76; PULSE 64
[2021-10-20] MEDS: lisinopriL 40 MG TABLET PO (08:26)
[2021-10-20] MEDS: LORazepam 0.5 MG TABLET PO (08:26)
[2021-10-20] MEDS: lamoTRIgine 100 MG TABLET 200 MG PO ×2 (08:29→20:35)
[2021-10-20 08:30] VITALS: BP 161/76; PULSE 64
[2021-10-20] MEDS: amLODIPine Besylate 10 MG TABLET PO (08:30)
[2021-10-20] MEDS: Multivitamin TABLET 1 TAB PO (08:30)
[2021-10-20] MEDS: Gabapentin 400 MG CAPSULE PO ×3 (08:36→20:35)
[2021-10-20] MEDS: Vortioxetine Hydrobromide 10 MG TABLET PO (08:39)
--- NOTE | 2021-10-20 10:18 | HO.PSYCHPN ---
Subjective Subjective Date of Service: 10/20/21 Reason For Visit: MDD SI Subjective Notes: Conditional Voluntary Medical Problems Affecting Mental Status: No Interim History: Pt has been voicing feeling suicidal to staff since yesterday. Today reports he is in a black hole and I dont see any light at the end or the edges . Feels he cant continue living with depression and not having many good days. Tearful. Hopeless. Reports not getting any from the things he usually does such as reading. Reports if he is discharged, he believes he will kill himself, by throwing himself under a truck/bus/car. Feels safe and supported by staff here. Looking forward to meeting with his primary psychiatrist to discuss mental state and treatmentplanning tomorrow. Medication Compliance: Yes Side effects from medications: No Attending Groups: Yes Review of Systems Acute medical concerns: No Review of Systems Review of Systems unremarkable Mental Status Exam Mental Status Exam Narrative: Wheelchair, appropriately dressed and hygiene. Tearful. Depressed. SI in context of hopelessness and discharge feeling in a black hole and a fog . No active SI in hospital setting. No HI. No psychosis or agitation. Insight and judgment fair. Diagnostics Vital Signs (24Hr): Vital Signs - 24 hr 10/19/21 18:00 10/20/21 06:00 10/20/21 08:26 Temperature 97.9 F 98.1 F Pulse Rate 68 64 64 Respiratory Rate 20 18 Blood Pressure 139/72 161/76 H 161/76 H Pulse Oximetry 95 97 10/20/21 08:30 Temperature Pulse Rate 64 Respiratory Rate Blood Pressure 161/76 H Pulse Oximetry BMI result Body Mass Index 30.2 Labs Results: 10/01/21 19:18 10/01/21 19:18 Labs: Laboratory Results - last 48 hr 10/15/21 06:42 Lamotrigine 8.9 Medications Medications Current Medications Acetaminophen (Acetaminophen 325 Mg Tablet) 650 mg PO Q6H PRN PRN Reason: Headache/Pain Mild Scale (1-3) Last Admin: 10/19/21 20:42 Dose: 650 mg Documented by: Acetaminophen (Acetaminophen 325 Mg Tablet) 650 mg PO Q6H PRN PRN Reason: Pain (Scale Score 1-3) Last Admin: 10/13/21 02:02 Dose: 650 mg Documented by: Al Hydroxide/Mg Hydroxide (Magnesium Hydrox/Alum Hydrox 30 Ml Oral.Susp) 30 ml PO Q6H PRN PRN Reason: Heartburn/Nausea Albuterol Sulfate (Albuterol Sulfate 90 Mcg 8 Gm Inhaler) 2 puff INHALE Q6H PRN PRN Reason: Shortness Of Breath Last Admin: 10/19/21 20:43 Dose: 2 puff Documented by: Amlodipine Besylate (Amlodipine Besylate 10 Mg Tablet) 10 mg PO DAILY [facility]; Protocol Last Admin: 10/20/21 08:30 Dose: 10 mg Documented by: Artificial Tears (Artificial Tears 15 Ml Drops) 1 drop EYE-BOTH Q1H PRN PRN Reason: Dry Eye(S) Last Admin: 10/12/21 14:13 Dose: 1 drop Documented by: Docusate Sodium (Docusate Sodium 100 Mg Capsule) 100 mg PO BEDTIME PRN PRN Reason: Constipation Last Admin: 10/19/21 20:41 Dose: 100 mg Documented by: Docusate Sodium (Docusate Sodium 100 Mg Capsule) 100 mg PO BID PRN PRN Reason: Constipation Last Admin: 10/19/21 09:38 Dose: 100 mg Documented by: Finasteride (Finasteride 5 Mg Tablet) 5 mg PO DAILY [facility] Last Admin: 10/20/21 08:25 Dose: 5 mg Documented by: Gabapentin (Gabapentin 400 Mg Capsule) 400 mg PO TID [facility] Last Admin: 10/20/21 08:36 Dose: 400 mg Documented by: Hydrocortisone (Hydrocortisone 1 % Cream 28.35 Gm Tube) 1 appl TOPICAL Q4H PRN; Protocol PRN Reason: RECTAL IRRITATION Last Admin: 10/19/21 20:43 Dose: 1 appl Documented by: Hydroxyzine HCl (Hydroxyzine Hcl 25 Mg Tablet) 25 mg PO BEDTIME PRN PRN Reason: Anxiety Last Admin: 10/17/21 04:26 Dose: 25 mg Documented by: Ibuprofen (Ibuprofen 400 Mg Tablet) 400 mg PO Q6H PRN PRN Reason: Pain, Moderate (Pain Scale 4-6 Last Admin: 10/20/21 04:34 Dose: 400 mg Documented by: Lamotrigine (Lamotrigine 100 Mg Tablet) 200 mg PO BID [facility] Last Admin: 10/20/21 08:29 Dose: 200 mg Documented by: Latanoprost (Latanoprost 0.005 % Ophth No 2.5 Ml Drops) 1 drop EYE-BOTH BEDTIME [facility] Last Admin: 10/19/21 20:43 Dose: 1 drop Documented by: Lidocaine (Lidocaine 4 % Patch Adh..Patch) 1 patch TRANSDERMA DAILY [facility]; Protocol Last Admin: 10/20/21 08:37 Dose: Not Given Documented by: Lisinopril (Lisinopril 40 Mg Tablet) 40 mg PO DAILY [facility]; Protocol Last Admin: 10/20/21 08:26 Dose: 40 mg Documented by: Magnesium Hydroxide (Milk Of Magnesia 30 Ml Oral.Susp) 30 ml PO DAILY PRN PRN Reason: Constipation Last Admin: 10/11/21 15:55 Dose: 30 ml Documented by: Magnesium Hydroxide (Milk Of Magnesia 30 Ml Oral.Susp) 30 ml PO Q72H PRN PRN Reason: Constipation Melatonin (Melatonin 3 Mg Tablet) 6 mg PO BEDTIME [facility] Last Admin: 10/19/21 20:40 Dose: 6 mg Documented by: Miconazole Nitrate (Miconazole 2 % Extra Thick Cr 56.7 Gm Tube) 1 appl TOPICAL BID [facility]; Protocol Last Admin: 10/19/21 20:50 Dose: Not Given Documented by: Mirtazapine (Mirtazapine 15 Mg Tablet) 45 mg PO BEDTIME [facility] Last Admin: 10/19/21 20:40 Dose: 45 mg Documented by: Multivitamins/Vitamin C (Multivitamin Tablet) 1 tab PO DAILY [facility] Last Admin: 10/20/21 08:30 Dose: 1 tab Documented by: Pharmacy Consult (Consult Rx Other Drug Dosing) 1 each MISCELLANE DAILY PRN PRN Reason: Consult order Polyethylene Glycol (Polyethylene Glycol 3350 17 Gm Powd.Pack) 17 gm PO DAILY PRN PRN Reason: Constipation Last Admin: 10/05/21 15:53 Dose: 17 gm Documented by: Polyethylene Glycol (Polyethylene Glycol 3350 17 Gm Powd.Pack) 17 gm PO DAILY@1600 [facility] Last Admin: 10/19/21 15:23 Dose: 17 gm Documented by: Quetiapine Fumarate (Quetiapine Fumarate 25 Mg Tablet) 25 mg PO BID PRN PRN Reason: Anxiety Last Admin: 10/20/21 04:39 Dose: 25 mg Documented by: Trazodone HCl (Trazodone Hcl 50 Mg Tablet) 50 mg PO BEDTIME PRN PRN Reason: Insomnia Last Admin: 10/01/21 23:41 Dose: 50 mg Documented by: Trazodone HCl (Trazodone Hcl 100 Mg Tablet) 300 mg PO BEDTIME [facility] Last Admin: 10/19/21 20:41 Dose: 300 mg Documented by: Vortioxetine (Vortioxetine Hydrobromide 10 Mg Tablet) 10 mg PO DAILY [facility] Last Admin: 10/20/21 08:39 Dose: 10 mg Documented by: Allergies Allergies Allergy/AdvReac Type Severity Reaction Status Date / Time fentanyl [FENTANYL] Allergy Intermediate unknown Verified 05/22/21 11:43 Assessment & Plan Assessment & Plan (1) Depression: Status: Acute Code(s): F32.A - Depression, unspecified Assessment and Plan: The patient is an elderly male with a long history of major depressive disorder and TBI, admitted before, very well known by the service.? He has been admitted for exacerbation of depression with suicidal ideation without a clear stressor.? Historically, the patient responds to ECT. Plan: Patient seems improved Continue 10 mg trintellix mirtazapine Lamictal gabapentin discharge planning referral for physical therapy outpatient schedule ECT outpatient in 2 weeks discharge planning referral to adult [facility] 10/20/21: Endorsing SI, hoplessness and depression. Will discus with team 10/21 ref mental state +/- modifying treatment/dispo planning. (2) HTN (hypertension): Status: Acute Code(s): I10 - Essential (primary) hypertension Assessment and Plan: cont tx plan Assessment and Plan: Patient had tremor on or Rexulti NO DISCONTINUED ECT FOR TOMORROW DISCHARGE PLANNING ENCOURAGE OUTPATIENT ACTIVATION BEHAVIORAL STIMULATION MONITOR RESPONSE TO ECT SUGGEST CONSIDERATION OF CHANGING SUCCINYLCHOLINE TO NONDEPOLARIZING AN AGENT REVIEWED WITH I spent minutes with the patient and/or on the patient floor today, greater than?50% of which was spent counseling/coordinating care. Reason for contiued inpatient stay Substantial Risk for: harm to self
[2021-10-20] MEDS: polyethylene glycoL 3350 17 GM POWD.PACK PO (15:00)
[2021-10-20 18:00] VITALS: BP 168/79; PULSE 67; RESP 19; TEMP 36.6; O2SAT 96
[2021-10-20] MEDS: Acetaminophen 325 MG TABLET 650 MG PO (20:34)
[2021-10-20] MEDS: Melatonin 3 MG TABLET 6 MG PO (20:34)
[2021-10-20] MEDS: hydrOXYzine HCL 25 MG TABLET PO (20:35)
[2021-10-20] MEDS: Latanoprost 0.005 % Ophth Sol 2.5 ML DROPS 1 DROP EYE-BOTH (20:35)
[2021-10-20] MEDS: Mirtazapine 15 MG TABLET 45 MG PO (20:35)
[2021-10-20] MEDS: traZODone HCL 100 MG TABLET 300 MG PO (22:08)
[2021-10-20] MEDS: LORazepam 1 MG TABLET PO (22:09)
[2021-10-21] MEDS: LORazepam 0.5 MG TABLET PO ×2 (02:39→09:56)
[2021-10-21 06:00] VITALS: BP 125/66; PULSE 84; TEMP 36.1; O2SAT 94
[2021-10-21] MEDS: Finasteride 5 MG TABLET PO (09:55)
[2021-10-21 09:56] VITALS: BP 125/66; PULSE 84
[2021-10-21] MEDS: Vortioxetine Hydrobromide 10 MG TABLET PO (09:56)
[2021-10-21] MEDS: Multivitamin TABLET 1 TAB PO (09:56)
[2021-10-21] MEDS: Gabapentin 400 MG CAPSULE PO ×3 (09:56→21:14)
[2021-10-21] MEDS: lamoTRIgine 100 MG TABLET 200 MG PO ×2 (09:56→21:14)
[2021-10-21] MEDS: amLODIPine Besylate 10 MG TABLET PO (09:56)
[2021-10-21] MEDS: lisinopriL 40 MG TABLET PO (09:56)
[2021-10-21] MEDS: polyethylene glycoL 3350 17 GM POWD.PACK PO (16:55)
[2021-10-21 21:00] VITALS: BP 153/79; PULSE 65; RESP 19; TEMP 36.3; O2SAT 96
[2021-10-21] MEDS: Mirtazapine 15 MG TABLET 45 MG PO (21:12)
[2021-10-21] MEDS: Latanoprost 0.005 % Ophth Sol 2.5 ML DROPS 1 DROP EYE-BOTH (21:12)
[2021-10-21] MEDS: Ibuprofen 400 MG TABLET PO (21:14)
[2021-10-21] MEDS: LORazepam 1 MG TABLET PO (21:14)
[2021-10-21] MEDS: traZODone HCL 100 MG TABLET 300 MG PO (21:14)
[2021-10-21] MEDS: Melatonin 3 MG TABLET 6 MG PO (21:14)
--- NOTE | 2021-10-21 23:17 | P.PNPSI_ITS ---
Subjective Subjective Date of Service: 10/21/21 Reason For Visit: MDD SI Subjective Notes: Conditional Voluntary Healthcare Proxy: No Guardianship: No Interim History: Patient began to feel increasingly despondent hopeless helpless feeling like nothing would get better. Was able to take information about how he might to alter his attitude perspective more agreeable to more intensive outpatient treatment. Consider ECT 10/23/2021 Medication Compliance: Yes Side effects from medications: Yes Attending Groups: Yes Mental Status Exam Mental Status Exam Narrative: Wheelchair, appropriately dressed and hygiene. Tearful. Depressed. SI in context of hopelessness and discharge feeling in a black hole and a fog . More active SI difficulty keeping things in perspective understanding that there is a process HI. No psychosis or agitation. Insight and judgment fair. Diagnostics Vital Signs (24Hr): Vital Signs - 24 hr 10/21/21 06:00 10/21/21 09:56 Temperature 97.0 F Pulse Rate 84 84 Blood Pressure 125/66 125/66 Pulse Oximetry 94 BMI result Body Mass Index 30.2 Labs Results: 10/01/21 19:18 10/01/21 19:18 Medications Medications Current Medications Acetaminophen (Acetaminophen 325 Mg Tablet) 650 mg PO Q6H PRN PRN Reason: Headache/Pain Mild Scale (1-3) Last Admin: 10/19/21 20:42 Dose: 650 mg Documented by: Acetaminophen (Acetaminophen 325 Mg Tablet) 650 mg PO Q6H PRN PRN Reason: Pain (Scale Score 1-3) Last Admin: 10/20/21 20:34 Dose: 650 mg Documented by: Al Hydroxide/Mg Hydroxide (Magnesium Hydrox/Alum Hydrox 30 Ml Oral.Susp) 30 ml PO Q6H PRN PRN Reason: Heartburn/Nausea Albuterol Sulfate (Albuterol Sulfate 90 Mcg 8 Gm Inhaler) 2 puff INHALE Q6H PRN PRN Reason: Shortness Of Breath Last Admin: 10/19/21 20:43 Dose: 2 puff Documented by: Amlodipine Besylate (Amlodipine Besylate 10 Mg Tablet) 10 mg PO DAILY TAZ; Protocol Last Admin: 10/21/21 09:56 Dose: 10 mg Documented by: Artificial Tears (Artificial Tears 15 Ml Drops) 1 drop EYE-BOTH Q1H PRN PRN Reason: Dry Eye(S) Last Admin: 10/12/21 14:13 Dose: 1 drop Documented by: Docusate Sodium (Docusate Sodium 100 Mg Capsule) 100 mg PO BEDTIME PRN PRN Reason: Constipation Last Admin: 10/19/21 20:41 Dose: 100 mg Documented by: Docusate Sodium (Docusate Sodium 100 Mg Capsule) 100 mg PO BID PRN PRN Reason: Constipation Last Admin: 10/19/21 09:38 Dose: 100 mg Documented by: Finasteride (Finasteride 5 Mg Tablet) 5 mg PO DAILY [facility] Last Admin: 10/21/21 09:55 Dose: 5 mg Documented by: Gabapentin (Gabapentin 400 Mg Capsule) 400 mg PO TID [facility] Last Admin: 10/21/21 21:14 Dose: 400 mg Documented by: Hydrocortisone (Hydrocortisone 1 % Cream 28.35 Gm Tube) 1 appl TOPICAL Q4H PRN; Protocol PRN Reason: RECTAL IRRITATION Last Admin: 10/19/21 20:43 Dose: 1 appl Documented by: Hydroxyzine HCl (Hydroxyzine Hcl 25 Mg Tablet) 25 mg PO BEDTIME PRN PRN Reason: Anxiety Last Admin: 10/20/21 20:35 Dose: 25 mg Documented by: Ibuprofen (Ibuprofen 400 Mg Tablet) 400 mg PO Q6H PRN PRN Reason: Pain, Moderate (Pain Scale 4-6 Last Admin: 10/21/21 21:14 Dose: 400 mg Documented by: Lamotrigine (Lamotrigine 100 Mg Tablet) 200 mg PO BID [facility] Last Admin: 10/21/21 21:14 Dose: 200 mg Documented by: Latanoprost (Latanoprost 0.005 % Ophth No 2.5 Ml Drops) 1 drop EYE-BOTH BEDTIME [facility] Last Admin: 10/21/21 21:12 Dose: 1 drop Documented by: Lidocaine (Lidocaine 4 % Patch Adh..Patch) 1 patch TRANSDERMA DAILY [facility]; Protocol Last Admin: 10/21/21 10:07 Dose: Not Given Documented by: Lisinopril (Lisinopril 40 Mg Tablet) 40 mg PO DAILY [facility]; Protocol Last Admin: 10/21/21 09:56 Dose: 40 mg Documented by: Lorazepam (Lorazepam 0.5 Mg Tablet) 0.5 mg PO DAILY [facility] Last Admin: 10/21/21 09:56 Dose: 0.5 mg Documented by: Lorazepam (Lorazepam 0.5 Mg Tablet) 0.5 mg PO Q4H PRN PRN Reason: Anxiety Last Admin: 10/21/21 02:39 Dose: 0.5 mg Documented by: Lorazepam (Lorazepam 1 Mg Tablet) 1 mg PO BEDTIME TAZ Last Admin: 10/21/21 21:14 Dose: 1 mg Documented by: Magnesium Hydroxide (Milk Of Magnesia 30 Ml Oral.Susp) 30 ml PO DAILY PRN PRN Reason: Constipation Last Admin: 10/11/21 15:55 Dose: 30 ml Documented by: Magnesium Hydroxide (Milk Of Magnesia 30 Ml Oral.Susp) 30 ml PO Q72H PRN PRN Reason: Constipation Melatonin (Melatonin 3 Mg Tablet) 6 mg PO BEDTIME TAZ Last Admin: 10/21/21 21:14 Dose: 6 mg Documented by: Miconazole Nitrate (Miconazole 2 % Extra Thick Cr 56.7 Gm Tube) 1 appl TOPICAL BID [facility]Z; Protocol Last Admin: 10/21/21 21:15 Dose: Not Given Documented by: Mirtazapine (Mirtazapine 15 Mg Tablet) 45 mg PO BEDTIME TAZ Last Admin: 10/21/21 21:12 Dose: 45 mg Documented by: Multivitamins/Vitamin C (Multivitamin Tablet) 1 tab PO DAILY [facility]Z Last Admin: 10/21/21 09:56 Dose: 1 tab Documented by: Pharmacy Consult (Consult Rx Other Drug Dosing) 1 each MISCELLANE DAILY PRN PRN Reason: Consult order Polyethylene Glycol (Polyethylene Glycol 3350 17 Gm Powd.Pack) 17 gm PO DAILY PRN PRN Reason: Constipation Last Admin: 10/05/21 15:53 Dose: 17 gm Documented by: Polyethylene Glycol (Polyethylene Glycol 3350 17 Gm Powd.Pack) 17 gm PO DAILY@1600 [facility] Last Admin: 10/21/21 16:55 Dose: 17 gm Documented by: Quetiapine Fumarate (Quetiapine Fumarate 25 Mg Tablet) 25 mg PO BID PRN PRN Reason: Anxiety Last Admin: 10/20/21 04:39 Dose: 25 mg Documented by: Trazodone HCl (Trazodone Hcl 50 Mg Tablet) 50 mg PO BEDTIME PRN PRN Reason: Insomnia Last Admin: 10/01/21 23:41 Dose: 50 mg Documented by: Trazodone HCl (Trazodone Hcl 100 Mg Tablet) 300 mg PO BEDTIME [facility] Last Admin: 10/21/21 21:14 Dose: 300 mg Documented by: Vortioxetine (Vortioxetine Hydrobromide 10 Mg Tablet) 10 mg PO DAILY [facility] Last Admin: 10/21/21 09:56 Dose: 10 mg Documented by: Allergies Allergies Allergy/AdvReac Type Severity Reaction Status Date / Time fentanyl [FENTANYL] Allergy Intermediate unknown Verified 05/22/21 11:43 Assessment & Plan Assessment & Plan (1) Depression: Status: Acute Code(s): F32.A - Depression, unspecified Assessment and Plan: The patient is an elderly male with a long history of major depressive disorder and TBI, admitted before, very well known by the service.? He has been admitted for exacerbation of depression with suicidal ideation without a clear stressor.? Historically, the patient responds to ECT. Plan: Patient seems improved Continue 10 mg trintellix mirtazapine Lamictal gabapentin discharge planning referral for physical therapy outpatient schedule ECT outpatient in 2 weeks discharge planning referral to adult day health 10/21/21: Endorsing SI, hoplessness and depression. Will discus with team 10/21 ref mental state +/- modifying treatment/dispo planning. Discharge on hold consider ECT would clearly benefit from outpatient therapy which has been hard to arrange patient not to logical would benefit best from and person treatment. (2) HTN (hypertension): Status: Acute Code(s): I10 - Essential (primary) hypertension Assessment and Plan: cont tx plan Assessment and Plan: Patient had tremor on or Rexulti NO DISCONTINUED ECT FOR TOMORROW DISCHARGE PLANNING ENCOURAGE OUTPATIENT ACTIVATION BEHAVIORAL STIMULATION MONITOR RESPONSE TO ECT SUGGEST CONSIDERATION OF CHANGING SUCCINYLCHOLINE TO NONDEPOLARIZING AN AGENT REVIEWED WITH I spent minutes with the patient and/or on the patient floor today, greater than?50% of which was spent counseling/coordinating care. Reason for contiued inpatient stay Substantial Risk for: harm to self and rapid decompensation
[2021-10-22] MEDS: LORazepam 0.5 MG TABLET PO ×2 (03:34→10:35)
[2021-10-22 09:49] VITALS: BP 144/76; PULSE 89; RESP 16; TEMP 36.6; O2SAT 97
[2021-10-22 10:35] VITALS: BP 144/76; PULSE 89
[2021-10-22] MEDS: Gabapentin 400 MG CAPSULE PO ×2 (10:35→16:16)
[2021-10-22] MEDS: lisinopriL 40 MG TABLET PO (10:35)
[2021-10-22] MEDS: Finasteride 5 MG TABLET PO (10:35)
[2021-10-22 10:36] VITALS: BP 144/76; PULSE 89
[2021-10-22] MEDS: Multivitamin TABLET 1 TAB PO (10:36)
[2021-10-22] MEDS: lamoTRIgine 100 MG TABLET 200 MG PO (10:36)
[2021-10-22] MEDS: Vortioxetine Hydrobromide 10 MG TABLET PO (10:36)
[2021-10-22] MEDS: amLODIPine Besylate 10 MG TABLET PO (10:36)
--- NOTE | 2021-10-22 14:27 | P.PNPSI_ITS ---
Subjective Subjective Date of Service: 10/22/21 Reason For Visit: MDD SI Subjective Notes: Conditional Voluntary Healthcare Proxy: No Guardianship: No Medical Problems Affecting Mental Status: Yes Interim History: Patient ruminating depressed trying to get patient to see his perspective cognitions along with his biology or contributing to his lack of stress tolerance and depression Medication Compliance: Yes Side effects from medications: Yes Attending Groups: Yes Mental Status Exam Mental Status Exam Narrative: Wheelchair, appropriately dressed and hygiene. Tearful. Depressed. SI in context of hopelessness and discharge feeling in a black hole and a fog . More active SI difficulty keeping things in perspective understanding that there is a process HI. No psychosis or agitation. Insight and judgment fair. But some improvement from the other day hopeful regarding ECT Diagnostics Vital Signs (24Hr): Vital Signs - 24 hr 10/21/21 21:00 10/22/21 09:49 10/22/21 10:35 Temperature 97.4 F 97.9 F Pulse Rate 65 89 89 Respiratory Rate 19 16 Blood Pressure 153/79 H 144/76 H 144/76 H Pulse Oximetry 96 97 10/22/21 10:36 Temperature Pulse Rate 89 Respiratory Rate Blood Pressure 144/76 H Pulse Oximetry BMI result Body Mass Index 30.2 Labs Results: 10/01/21 19:18 10/01/21 19:18 Medications Medications Current Medications Acetaminophen (Acetaminophen 325 Mg Tablet) 650 mg PO Q6H PRN PRN Reason: Headache/Pain Mild Scale (1-3) Last Admin: 10/19/21 20:42 Dose: 650 mg Documented by: Acetaminophen (Acetaminophen 325 Mg Tablet) 650 mg PO Q6H PRN PRN Reason: Pain (Scale Score 1-3) Last Admin: 10/20/21 20:34 Dose: 650 mg Documented by: Al Hydroxide/Mg Hydroxide (Magnesium Hydrox/Alum Hydrox 30 Ml Oral.Susp) 30 ml PO Q6H PRN PRN Reason: Heartburn/Nausea Albuterol Sulfate (Albuterol Sulfate 90 Mcg 8 Gm Inhaler) 2 puff INHALE Q6H PRN PRN Reason: Shortness Of Breath Last Admin: 10/19/21 20:43 Dose: 2 puff Documented by: Amlodipine Besylate (Amlodipine Besylate 10 Mg Tablet) 10 mg PO DAILY [facility]; Protocol Last Admin: 10/22/21 10:36 Dose: 10 mg Documented by: Artificial Tears (Artificial Tears 15 Ml Drops) 1 drop EYE-BOTH Q1H PRN PRN Reason: Dry Eye(S) Last Admin: 10/12/21 14:13 Dose: 1 drop Documented by: Docusate Sodium (Docusate Sodium 100 Mg Capsule) 100 mg PO BEDTIME PRN PRN Reason: Constipation Last Admin: 10/19/21 20:41 Dose: 100 mg Documented by: Docusate Sodium (Docusate Sodium 100 Mg Capsule) 100 mg PO BID PRN PRN Reason: Constipation Last Admin: 10/19/21 09:38 Dose: 100 mg Documented by: Finasteride (Finasteride 5 Mg Tablet) 5 mg PO DAILY [facility] Last Admin: 10/22/21 10:35 Dose: 5 mg Documented by: Gabapentin (Gabapentin 400 Mg Capsule) 400 mg PO TID [facility] Last Admin: 10/22/21 10:35 Dose: 400 mg Documented by: Hydrocortisone (Hydrocortisone 1 % Cream 28.35 Gm Tube) 1 appl TOPICAL Q4H PRN; Protocol PRN Reason: RECTAL IRRITATION Last Admin: 10/19/21 20:43 Dose: 1 appl Documented by: Hydroxyzine HCl (Hydroxyzine Hcl 25 Mg Tablet) 25 mg PO BEDTIME PRN PRN Reason: Anxiety Last Admin: 10/20/21 20:35 Dose: 25 mg Documented by: Ibuprofen (Ibuprofen 400 Mg Tablet) 400 mg PO Q6H PRN PRN Reason: Pain, Moderate (Pain Scale 4-6 Last Admin: 10/21/21 21:14 Dose: 400 mg Documented by: Lamotrigine (Lamotrigine 100 Mg Tablet) 200 mg PO BID [facility] Last Admin: 10/22/21 10:36 Dose: 200 mg Documented by: Latanoprost (Latanoprost 0.005 % Ophth No 2.5 Ml Drops) 1 drop EYE-BOTH BEDTIM E [facility] Last Admin: 10/21/21 21:12 Dose: 1 drop Documented by: Lidocaine (Lidocaine 4 % Patch Adh..Patch) 1 patch TRANSDERMA DAILY [facility]; Protocol Last Admin: 10/22/21 10:42 Dose: Not Given Documented by: Lisinopril (Lisinopril 40 Mg Tablet) 40 mg PO DAILY [facility]; Protocol Last Admin: 10/22/21 10:35 Dose: 40 mg Documented by: Lorazepam (Lorazepam 0.5 Mg Tablet) 0.5 mg PO DAILY [facility] Last Admin: 10/22/21 10:35 Dose: 0.5 mg Documented by: Lorazepam (Lorazepam 0.5 Mg Tablet) 0.5 mg PO Q4H PRN PRN Reason: Anxiety Last Admin: 10/22/21 03:34 Dose: 0.5 mg Documented by: Lorazepam (Lorazepam 1 Mg Tablet) 1 mg PO BEDTIME [facility] Last Admin: 10/21/21 21:14 Dose: 1 mg Documented by: Magnesium Hydroxide (Milk Of Magnesia 30 Ml Oral.Susp) 30 ml PO DAILY PRN PRN Reason: Constipation Last Admin: 10/11/21 15:55 Dose: 30 ml Documented by: Magnesium Hydroxide (Milk Of Magnesia 30 Ml Oral.Susp) 30 ml PO Q72H PRN PRN Reason: Constipation Melatonin (Melatonin 3 Mg Tablet) 6 mg PO BEDTIME [facility] Last Admin: 10/21/21 21:14 Dose: 6 mg Documented by: Miconazole Nitrate (Miconazole 2 % Extra Thick Cr 56.7 Gm Tube) 1 appl TOPICAL BID [facility]; Protocol Last Admin: 10/22/21 10:43 Dose: Not Given Documented by: Mirtazapine (Mirtazapine 15 Mg Tablet) 45 mg PO BEDTIME [facility] Last Admin: 10/21/21 21:12 Dose: 45 mg Documented by: Multivitamins/Vitamin C (Multivitamin Tablet) 1 tab PO DAILY [facility] Last Admin: 10/22/21 10:36 Dose: 1 tab Documented by: Pharmacy Consult (Consult Rx Other Drug Dosing) 1 each MISCELLANE DAILY PRN PRN Reason: Consult order Polyethylene Glycol (Polyethylene Glycol 3350 17 Gm Powd.Pack) 17 gm PO DAILY PRN PRN Reason: Constipation Last Admin: 10/05/21 15:53 Dose: 17 gm Documented by: Polyethylene Glycol (Polyethylene Glycol 3350 17 Gm Powd.Pack) 17 gm PO DAILY@1600 [facility] Last Admin: 10/21/21 16:55 Dose: 17 gm Documented by: Quetiapine Fumarate (Quetiapine Fumarate 25 Mg Tablet) 25 mg PO BID PRN PRN Reason: Anxiety Last Admin: 10/20/21 04:39 Dose: 25 mg Documented by: Trazodone HCl (Trazodone Hcl 50 Mg Tablet) 50 mg PO BEDTIME PRN PRN Reason: Insomnia Last Admin: 10/01/21 23:41 Dose: 50 mg Documented by: Trazodone HCl (Trazodone Hcl 100 Mg Tablet) 300 mg PO BEDTIME [facility] Last Admin: 10/21/21 21:14 Dose: 300 mg Documented by: Vortioxetine (Vortioxetine Hydrobromide 10 Mg Tablet) 10 mg PO DAILY [facility] Last Admin: 10/22/21 10:36 Dose: 10 mg Documented by: Allergies Allergies Allergy/AdvReac Type Severity Reaction Status Date / Time fentanyl [FENTANYL] Allergy Intermediate unknown Verified 05/22/21 11:43 Assessment & Plan Assessment & Plan (1) Depression: Status: Acute Code(s): F32.A - Depression, unspecified Assessment and Plan: The patient is an elderly male with a long history of major depressive disorder and TBI, admitted before, very well known by the service.? He has been admitted for exacerbation of depression with suicidal ideation without a clear stressor.? Historically, the patient responds to ECT. Plan: Patient seems improved Continue 10 mg trintellix mirtazapine Lamictal gabapentin discharge planning referral for physical therapy outpatient schedule ECT outpatient in 2 weeks discharge planning referral [facility] 10/21/21: Endorsing SI, hoplessness and depression. Will discus with team 10/21 ref mental state +/- modifying treatment/dispo planning. Discharge on hold consider ECT would clearly benefit from outpatient therapy which has been hard to arrange patient not to logical would benefit best from and person treatment. 10/22/2021 Patient continues depressed intermittently hopeless helpless despondent. May do better with intermittent ECT than 3 times a week consider dopamine agonist (2) HTN (hypertension): Status: Acute Code(s): I10 - Essential (primary) hypertension Assessment and Plan: cont tx plan Assessment and Plan: Patient had tremor on or Rexulti NO DISCONTINUED ECT FOR TOMORROW DISCHARGE PLANNING ENCOURAGE OUTPATIENT ACTIVATION BEHAVIORAL STIMULATION MONITOR RESPONSE TO ECT SUGGEST CONSIDERATION OF CHANGING SUCCINYLCHOLINE TO NONDEPOLARIZING AN AGENT REVIEWED WITH I spent minutes with the patient and/or on the patient floor today, greater than?50% of which was spent counseling/coordinating care. Reason for contiued inpatient stay Substantial Risk for: harm to self, rapid decompensation and med/psych decompensation
[2021-10-22] MEDS: polyethylene glycoL 3350 17 GM POWD.PACK PO (16:16)
[2021-10-22 18:00] VITALS: BP 148/78; PULSE 66; RESP 18; TEMP 36.4; O2SAT 96
[2021-10-22] MEDS: Melatonin 3 MG TABLET 6 MG PO (21:35)
[2021-10-22] MEDS: traZODone HCL 100 MG TABLET 300 MG PO (21:37)
[2021-10-22] MEDS: Mirtazapine 15 MG TABLET 45 MG PO (21:37)
[2021-10-22] MEDS: Latanoprost 0.005 % Ophth Sol 2.5 ML DROPS 1 DROP EYE-BOTH (21:45)
[2021-10-22] MEDS: Miconazole 2 % Extra Thick Cr 56.7 Gm Tube 1 APPL TOPICAL (21:45)
[2021-10-22] MEDS: Acetaminophen 325 MG TABLET 650 MG PO (21:58)
[2021-10-23] VITALS (12 sets, daily range): BP systolic 120–183; BP diastolic 64–97; PULSE 65–103; RESP 16–20; TEMP 36.3–37.2; O2SAT 93–98
[2021-10-23] MEDS: amLODIPine Besylate 10 MG TABLET PO (05:55)
[2021-10-23] MEDS: lisinopriL 40 MG TABLET PO (05:57)
--- NOTE | 2021-10-23 11:04 | MHC.SHP ---
Pre-Procedural Eval Section A Date of Service: 10/23/21 The patient is an INPATIENT: Yes Changes since office visit: Yes New Medical Problems, Yes Changes in Medication and Yes Patient answered all questions; No Cold of Flu in the past 2 weeks The History & Physical has been completed within 30 days and I have reviewed it.: Yes Section B Chief Complaint: MDD SI Allergies: Allergies Allergy/AdvReac Type Severity Reaction Status Date / Time fentanyl [FENTANYL] Allergy Intermediate unknown Verified 05/22/21 11:43 Plan I have reviewed the history and physical and performed a pertinent physical examination on my patient. No changes have occurred unless specified.
--- NOTE | 2021-10-23 11:27 | HO.ECTPROC ---
ECT Procedure Note Diagnosis/Treatment Date of Service: 10/23/21 Diagnosis: Major Depressive Disorder Current Treatment Number: 3 Treatment: Series Interval Clinical Notes: pt having intermittant series in addition to succinylcholine anesthesia giving rocuronium 4 mg ECT Settings Device: THYMATRON DGx Electrode Placement: Bifrontal Program/Pulse Width: 0.50 Energy Percent: 100 Seizure Duration By EEG (in seconds): 81 Medications Administration General Anesthetic: Etomidate (17) Muscle Relaxant: Succinylcholine (100) Ancillary Medications Analgesics: Torodol - Pre ECT Anti-emetics: Zofran - Pre ECT Cardiovascular Medications: Labetolol (10 mg post htn) Miscillaneous Medications: Propofol (30 mg) Airway Management Airway Management: Bag Mask Ventilation Treatment Recommendations Notes: consider labetolol 5 mg pretx had 10 mg post htn lorazepam 1 mg for anxiety
--- NOTE | 2021-10-23 11:40 | P.CONAN_ITS ---
[facility] Active Problems Active Problems: All Active Problems (Updated 10/05/21 @ 12:23 by MICHELE Matias) Depression (Acute) Suicidal ideation (Acute) Major depressive disorder, recurrent severe without psychotic features (Acute) Cognitive and neurobehavioral dysfunction following brain injury (Acute) HTN (hypertension) (Acute) Past Medical History Medical History Alcohol use disorder, severe, in sustained remission Cognitive and neurobehavioral dysfunction following brain injury Hernia HTN (hypertension) Major depressive disorder, recurrent Major depressive disorder, recurrent severe without psychotic features Subdural hematoma TBI (traumatic brain injury) Functional capacity: independent ambulation Family History Family history of problems with anesthesia: No Surgical History Surgical History H/O brain surgery H/O umbilical hernia repair History of hip replacement S/P cholecystectomy History of Problems with Anesthesia: No Social History Social History Household Members: None Household Members Other:: Pt lives in a care home Housing: Other Housing Other:: care home. Do you presently have visiting nurse or other home services: No Alcohol intake: former Patient Tobacco Use Status: Never used Tobacco Use of substances other than those prescribed or required for medical reasons: No Currently Displaying Signs/Symptoms of Drug Intoxication Withdrawal: No Any prior treatment program specific to substance use: No Have you been hit, kicked, punched, or otherwise hurt by someone within the past year? If so, by whom?: No Do you feel safe in your current relationship?: No Current Relationship Is there a partner from a previous relationship who is making you feel unsafe now?: No Are you made to feel afraid or neglected: No Shinto Healthcare Practices: Judaism. Are you DNR?: No Advance Directives: No Advance Directives Information Provided: No Advance Directives Date on File: 05/27/19 Healthcare Proxy: Yes Guardian: No Do you have thoughts of harming others: None Do you have a plan to hurt others: No Plan Recently lost weight without trying: No How much weight loss: Not applicable Eating poorly because of decreased appetite: No Nutrition screen score: 0 Nutrition Risks: No Nutritional Risk Poor oral hygiene: No service: No Sexual orientation: Straight/Heterosexual Meds Allergies Allergy/AdvReac Type Severity Reaction Status Date / Time fentanyl [FENTANYL] Allergy Intermediate unknown Verified 05/22/21 11:43 Active Medications: Current Medications Acetaminophen (Acetaminophen 325 Mg Tablet) 650 mg PO Q6H PRN PRN Reason: Headache/Pain Mild Scale (1-3) Last Admin: 10/19/21 20:42 Dose: 650 mg Documented by: Acetaminophen (Acetaminophen 325 Mg Tablet) 650 mg PO Q6H PRN PRN Reason: Pain (Scale Score 1-3) Last Admin: 10/22/21 21:58 Dose: 650 mg Documented by: Al Hydroxide/Mg Hydroxide (Magnesium Hydrox/Alum Hydrox 30 Ml Oral.Susp) 30 ml PO Q6H PRN PRN Reason: Heartburn/Nausea Albuterol Sulfate (Albuterol Sulfate 90 Mcg 8 Gm Inhaler) 2 puff INHALE Q6H PRN PRN Reason: Shortness Of Breath Last Admin: 10/19/21 20:43 Dose: 2 puff Documented by: Amlodipine Besylate (Amlodipine Besylate 10 Mg Tablet) 10 mg PO DAILY [facility]; Protocol Last Admin: 10/23/21 05:55 Dose: 10 mg Documented by: Artificial Tears (Artificial Tears 15 Ml Drops) 1 drop EYE-BOTH Q1H PRN PRN Reason: Dry Eye(S) Last Admin: 10/12/21 14:13 Dose: 1 drop Documented by: Docusate Sodium (Docusate Sodium 100 Mg Capsule) 100 mg PO BEDTIME PRN PRN Reason: Constipation Last Admin: 10/19/21 20:41 Dose: 100 mg Documented by: Docusate Sodium (Docusate Sodium 100 Mg Capsule) 100 mg PO BID PRN PRN Reason: Constipation Last Admin: 10/19/21 09:38 Dose: 100 mg Documented by: Finasteride (Finasteride 5 Mg Tablet) 5 mg PO DAILY TAZ Last Admin: 10/22/21 10:35 Dose: 5 mg Documented by: Gabapentin (Gabapentin 400 Mg Capsule) 400 mg PO TID TAZ Last Admin: 10/22/21 21:39 Dose: Not Given Documented by: Hydrocortisone (Hydrocortisone 1 % Cream 28.35 Gm Tube) 1 appl TOPICAL Q4H PRN; Protocol PRN Reason: RECTAL IRRITATION Last Admin: 10/19/21 20:43 Dose: 1 appl Documented by: Hydroxyzine HCl (Hydroxyzine Hcl 25 Mg Tablet) 25 mg PO BEDTIME PRN PRN Reason: Anxiety Last Admin: 10/20/21 20:35 Dose: 25 mg Documented by: Ibuprofen (Ibuprofen 400 Mg Tablet) 400 mg PO Q6H PRN PRN Reason: Pain, Moderate (Pain Scale 4-6 Last Admin: 10/21/21 21:14 Dose: 400 mg Documented by: Lamotrigine (Lamotrigine 100 Mg Tablet) 200 mg PO BID [facility] Last Admin: 10/22/21 21:40 Dose: Not Given Documented by: Latanoprost (Latanoprost 0.005 % Ophth No 2.5 Ml Drops) 1 drop EYE-BOTH BEDTIME [facility] Last Admin: 10/22/21 21:45 Dose: 1 drop Documented by: Lidocaine (Lidocaine 4 % Patch Adh..Patch) 1 patch TRANSDERMA DAILY [facility]; Protocol Last Admin: 10/22/21 10:42 Dose: Not Given Documented by: Lisinopril (Lisinopril 40 Mg Tablet) 40 mg PO DAILY [facility]; Protocol Last Admin: 10/23/21 05:57 Dose: 40 mg Documented by: Lorazepam (Lorazepam 0.5 Mg Tablet) 0.5 mg PO DAILY [facility] Last Admin: 10/22/21 10:35 Dose: 0.5 mg Documented by: Lorazepam (Lorazepam 0.5 Mg Tablet) 0.5 mg PO Q4H PRN PRN Reason: Anxiety Last Admin: 10/22/21 03:34 Dose: 0.5 mg Documented by: Lorazepam (Lorazepam 1 Mg Tablet) 1 mg PO BEDTIME TAZ Last Admin: 10/22/21 21:40 Dose: Not Given Documented by: Magnesium Hydroxide (Milk Of Magnesia 30 Ml Oral.Susp) 30 ml PO DAILY PRN PRN Reason: Constipation Last Admin: 10/11/21 15:55 Dose: 30 ml Documented by: Magnesium Hydroxide (Milk Of Magnesia 30 Ml Oral.Susp) 30 ml PO Q72H PRN PRN Reason: Constipation Melatonin (Melatonin 3 Mg Tablet) 6 mg PO BEDTIME TAZ Last Admin: 10/22/21 21:35 Dose: 6 mg Documented by: Miconazole Nitrate (Miconazole 2 % Extra Thick Cr 56.7 Gm Tube) 1 appl TOPICAL BID [facility]; Protocol Last Admin: 10/22/21 21:45 Dose: 1 appl Documented by: Mirtazapine (Mirtazapine 15 Mg Tablet) 45 mg PO BEDTIME [facility] Last Admin: 10/22/21 21:37 Dose: 45 mg Documented by: Multivitamins/Vitamin C (Multivitamin Tablet) 1 tab PO DAILY [facility] Last Admin: 10/22/21 10:36 Dose: 1 tab Documented by: Pharmacy Consult (Consult Rx Other Drug Dosing) 1 each MISCELLANE DAILY PRN PRN Reason: Consult order Polyethylene Glycol (Polyethylene Glycol 3350 17 Gm Powd.Pack) 17 gm PO DAILY PRN PRN Reason: Constipation Last Admin: 10/05/21 15:53 Dose: 17 gm Documented by: Polyethylene Glycol (Polyethylene Glycol 3350 17 Gm Powd.Pack) 17 gm PO DAILY@1600 [facility] Last Admin: 10/22/21 16:16 Dose: 17 gm Documented by: Quetiapine Fumarate (Quetiapine Fumarate 25 Mg Tablet) 25 mg PO BID PRN PRN Reason: Anxiety Last Admin: 10/20/21 04:39 Dose: 25 mg Documented by: Trazodone HCl (Trazodone Hcl 50 Mg Tablet) 50 mg PO BEDTIME PRN PRN Reason: Insomnia Last Admin: 10/01/21 23:41 Dose: 50 mg Documented by: Trazodone HCl (Trazodone Hcl 100 Mg Tablet) 300 mg PO BEDTIME [facility] Last Admin: 10/22/21 21:37 Dose: 300 mg Documented by: Vortioxetine (Vortioxetine Hydrobromide 10 Mg Tablet) 10 mg PO DAILY [facility] Last Admin: 10/22/21 10:36 Dose: 10 mg Documented by: Home Medications Medication Instructions Recorded Confirmed Last Taken Type clotrimazole 1 % topical solution See Rx Instructions .ROUTE 05/22/21 10/01/21 Unknown History .COMPLEX PRN dextromethorphan-guaifenesin 10 10 ml PO Q6H PRN 05/22/21 10/01/21 Unknown History mg-200 mg/5 mL oral liquid docusate sodium 100 mg capsule See Rx Instructions .ROUTE 05/22/21 10/01/21 Unknown History .COMPLEX PRN finasteride 5 mg tablet 1 tab PO DAILY 05/22/21 10/01/21 10/01/21 History latanoprost 0.005 % eye drops 1 drp OPHTHALMIC (EYE) BEDTIME 05/22/21 10/01/21 Unknown History magnesium hydroxide 400 mg/5 mL 2,400 mg PO Q72H PRN 05/22/21 10/01/21 Unknown History oral suspension (Milk of Magnesia) melatonin 5 mg tablet 5 mg PO BEDTIME 05/22/21 10/01/21 09/30/21 History rhgkexjgvktd-mdiyqzkq-ibafyy tablet 1 tab PO DAILY 05/22/21 10/01/21 10/01/21 History polyethylene glycol 3350 17 17 g PO DAILY PRN 05/22/21 10/01/21 Unknown History gram/dose oral powder polyethylene glycol 3350 17 17 g PO DAILY@1600 05/22/21 10/01/21 Unknown History gram/dose oral powder psyllium husk 0.4 gram capsule 0.4 g PO DAILY 05/22/21 10/01/21 10/01/21 History (Metamucil) trazodone 150 mg tablet 2 tab PO BEDTIME 05/22/21 10/01/21 09/30/21 History acetaminophen 325 mg tablet 650 mg PO Q6H PRN 10/01/21 10/02/21 Unknown History albuterol sulfate 90 mcg/actuation 2 puff INHALATION Q6H PRN 10/01/21 10/01/21 Unknown History aerosol inhaler artifi.tears(hypromellose)(PF) 0.3 1 drp OPHTHALMIC (EYE) Q1H PRN 10/01/21 10/01/21 Unknown History % eye drops brexpiprazole 3 mg tablet (Rexulti) 1 tab PO DAILY 10/01/21 10/01/21 10/01/21 History guaifenesin 200 mg capsule 200 mg PO Q6H PRN 10/01/21 10/01/21 Unknown History hydrocortisone 1 % topical cream 1 appl TOPICAL Q4H PRN 10/01/21 10/01/21 Unknown History lamotrigine 200 mg tablet 1 tab PO BID 10/01/21 10/01/21 10/01/21 History miconazole nitrate 2 % topical 1 appl TOPICAL BID 10/01/21 10/01/21 Unknown History cream mirtazapine 45 mg tablet 1 tab PO BEDTIME 10/01/21 10/01/21 Unknown History quetiapine 25 mg tablet 25 mg PO BID PRN 10/01/21 10/01/21 Unknown History vortioxetine 5 mg tablet 1 tab PO DAILY 10/01/21 10/01/21 10/01/21 History (Trintellix) Exam Exam Date and Time: October 23, 2021 1140 Height,Weight and Vital Signs: Height 6 ft 2 in Weight 106.8 kg Last Vital Signs Temp 98.1 F 10/23/21 10:24 Pulse 103 H 10/23/21 10:24 Resp 18 10/23/21 10:24 BP 183/97 H 10/23/21 10:24 Pulse Ox 98 10/23/21 10:24 Pertinent Lab Results Pertinent Lab Results: Laboratory Tests 10/01/21 10/01/21 10/01/21 19:18 19:18 20:03 WBC 5.9 RBC 4.34 L Hgb 14.1 Hct 42.1 MCV 97.0 MCH 32.5 MCHC 33.5 RDW 11.7 Plt Count 146 L MPV 10.1 Immature Gran % (Auto) 0.5 H Neut % (Auto) 59.8 Lymph % (Auto) 29.3 [place] % (Auto) 4.8 Eos % (Auto) 5.3 H Baso % (Auto) 0.3 Lymph # (Auto) 1.7 [place] # (Auto) 0.3 Eos # (Auto) 0.3 Baso # (Auto) 0.0 Abs Immat Gran (auto) 0.03 Absolute Neuts (auto) 3.5 Absolute Nucleated RBC 0.000 Nucleated RBC % (auto) 0.0 Sodium 139 Potassium 4.3 Chloride 103 Carbon Dioxide 27 Anion Gap 13 BUN 17 H Creatinine 1.06 Estim Creat Clear Calc 90.0 Estimated GFR > 60 Random Glucose 154 H D Estimat Average Glucose Hemoglobin A1c % Calcium 9.3 Total Bilirubin 0.3 AST 27 ALT 43 H Alkaline Phosphatase 72 Total Protein 6.9 Albumin 4.5 25-OH Vitamin D Total 25-Hydroxy Vitamin D2 25-Hydroxy Vitamin D3 Urine Color Urine Appearance Urine pH Ur Specific [place] Urine Protein Urine Glucose (UA) Urine Ketones Urine Blood Urine Nitrite Ur Leukocyte Esterase Urine RBC Urine WBC Ur Squamous Epith Cells Urine Bacteria Hyaline Casts Urine Mucus Urine Opiates Screen Urine Fentanyl Screen Ur Barbiturates Screen Lamotrigine Ur Phencyclidine Scrn Ur Amphetamines Screen U Benzodiazepines Scrn Urine Cocaine Screen U Marijuana (THC) Screen COVID-19 (RACHEL) Negative COVID-19 Clin Com See Note 10/03/21 10/03/21 10/09/21 05:50 05:50 07:37 WBC RBC Hgb Hct MCV MCH MCHC RDW Plt Count MPV Immature Gran % (Auto) Neut % (Auto) Lymph % (Auto) [place] % (Auto) Eos % (Auto) Baso % (Auto) Lymph # (Auto) [place] # (Auto) Eos # (Auto) Baso # (Auto) Abs Immat Gran (auto) Absolute Neuts (auto) Absolute Nucleated RBC Nucleated RBC % (auto) Sodium Potassium Chloride Carbon Dioxide Anion Gap BUN Creatinine Estim Creat Clear Calc Estimated GFR Random Glucose Estimat Average Glucose Hemoglobin A1c % Calcium Total Bilirubin AST ALT Alkaline Phosphatase Total Protein Albumin 25-OH Vitamin D Total 25 L 25-Hydroxy Vitamin D2 <4 25-Hydroxy Vitamin D3 25 Urine Color YELLOW Urine Appearance CLEAR Urine pH 6.0 Ur Specific [place] 1.015 Urine Protein NEG Urine Glucose (UA) NEG Urine Ketones NEG Urine Blood NEG Urine Nitrite NEG Ur Leukocyte Esterase NEG Urine RBC 0-2 Urine WBC 0 Ur Squamous Epith Cells 2+ Urine Bacteria TRACE Hyaline Casts 5-9 Urine Mucus 2+ Urine Opiates Screen Not Detected Urine Fentanyl Screen Not Detected Ur Barbiturates Screen Not Detected Lamotrigine 7.2 Ur Phencyclidine Scrn Not Detected Ur Amphetamines Screen Not Detected U Benzodiazepines Scrn Not Detected Urine Cocaine Screen Not Detected U Marijuana (THC) Screen Not Detected COVID-19 (RACHEL) COVID-19 [employer] Com 10/15/21 10/15/21 06:42 06:42 WBC RBC Hgb Hct MCV MCH MCHC RDW Plt Count MPV Immature Gran % (Auto) Neut % (Auto) Lymph % (Auto) [place] % (Auto) Eos % (Auto) Baso % (Auto) Lymph # (Auto) [place] # (Auto) Eos # (Auto) Baso # (Auto) Abs Immat Gran (auto) Absolute Neuts (auto) Absolute Nucleated RBC Nucleated RBC % (auto) Sodium Potassium Chloride Carbon Dioxide Anion Gap BUN Creatinine Estim Creat Clear Calc Estimated GFR Random Glucose Estimat Average Glucose 105 Hemoglobin A1c % 5.3 Calcium Total Bilirubin AST ALT Alkaline Phosphatase Total Protein Albumin 25-OH Vitamin D Total 25-Hydroxy Vitamin D2 25-Hydroxy Vitamin D3 Urine Color Urine Appearance Urine pH Ur Specific [place] Urine Protein Urine Glucose (UA) Urine Ketones Urine Blood Urine Nitrite Ur Leukocyte Esterase Urine RBC Urine WBC Ur Squamous Epith Cells Urine Bacteria Hyaline Casts Urine Mucus Urine Opiates Screen Urine Fentanyl Screen Ur Barbiturates Screen Lamotrigine 8.9 Ur Phencyclidine Scrn Ur Amphetamines Screen U Benzodiazepines Scrn Urine Cocaine Screen U Marijuana (THC) Screen COVID-19 (RACHEL) COVID-19 Clin Com Airway Mallampati Class: III TM Dist: >3cm Neck ROM: Full Denture: Upper Heart: RRR Lungs: CTA Assessment and Plan Final Anesthetic Review Family History of Problems with Anesthesia: No History of Problems with Anesthesia: No Final Preanesthetic Review: No Changes in Pt Med Stat Patient Risk: Intermediate Procedure Risk: Low Anesthetic Plan Anesthetic Plan: GA Disposition: Standard PACU
--- NOTE | 2021-10-23 11:43 | HO.POSTANES ---
Post Anesthesia Evaluation Post Anesthesia Evaluation Vital Signs: Vital Signs Temp Pulse Resp BP Pulse Ox 10/23/21 11:37 98.9 F 78 16 139/75 94 10/23/21 10:24 98.1 F 103 H 18 183/97 H 98 10/23/21 06:00 98.4 F 95 16 135/79 95 10/23/21 05:57 65 150/72 H 10/23/21 05:55 65 150/72 H Anesthesia: General Mental Status: Awake Pain Control: Satisfactory Nausea/Vomiting: None Hydration: Adequate Anesthesia-Related Issues: No Anes. Related Issues
[2021-10-23] MEDS: lamoTRIgine 100 MG TABLET 200 MG PO ×2 (13:00→21:06)
[2021-10-23] MEDS: Gabapentin 400 MG CAPSULE PO ×3 (13:00→21:03)
[2021-10-23] MEDS: Finasteride 5 MG TABLET PO (13:00)
[2021-10-23] MEDS: Vortioxetine Hydrobromide 10 MG TABLET PO (13:00)
[2021-10-23] MEDS: Multivitamin TABLET 1 TAB PO (13:00)
[2021-10-23] MEDS: LORazepam 0.5 MG TABLET PO (13:01)
[2021-10-23] MEDS: Ibuprofen 400 MG TABLET PO ×2 (13:08→19:53)
[2021-10-23] MEDS: polyethylene glycoL 3350 17 GM POWD.PACK PO (16:00)
[2021-10-23] MEDS: Melatonin 3 MG TABLET 6 MG PO (21:04)
[2021-10-23] MEDS: traZODone HCL 100 MG TABLET 300 MG PO (21:04)
[2021-10-23] MEDS: LORazepam 1 MG TABLET PO (21:04)
[2021-10-23] MEDS: Mirtazapine 15 MG TABLET 45 MG PO (21:05)
--- NOTE | 2021-10-23 22:44 | HO.PSYCHPN ---
Subjective Subjective Date of Service: 10/23/21 Reason For Visit: MDD SI Subjective Notes: Conditional Voluntary Interim History: see ect note pt anxious dysphoric ruminating engaged in tx Mental Status Exam Mental Status Exam Narrative: Wheelchair, appropriately dressed and hygiene. Depressed. SI in context of hopelessness and discharge feeling in a black hole and a fog . More active SI difficulty keeping things in perspective understanding that there is a process HI. No psychosis or agitation. Insight and judgment fair. Diagnostics Vital Signs (24Hr): Vital Signs - 24 hr 10/23/21 05:55 10/23/21 05:57 10/23/21 06:00 Temperature 98.4 F Pulse Rate 65 65 95 Respiratory Rate 16 Blood Pressure 150/72 H 150/72 H 135/79 Pulse Oximetry 95 10/23/21 10:24 10/23/21 11:37 10/23/21 11:42 Temperature 98.1 F 98.9 F Pulse Rate 103 H 78 76 Respiratory Rate 18 16 20 Blood Pressure 183/97 H 139/75 135/78 Pulse Oximetry 98 94 95 10/23/21 11:47 10/23/21 11:52 10/23/21 12:07 Temperature Pulse Rate 77 78 80 Respiratory Rate 19 19 18 Blood Pressure 137/89 130/81 126/74 Pulse Oximetry 95 95 94 10/23/21 12:22 10/23/21 13:00 10/23/21 21:02 Temperature 97.4 F 98.1 F 97.9 F Pulse Rate 83 82 67 Respiratory Rate 18 18 19 Blood Pressure 137/77 145/83 H 120/64 Pulse Oximetry 96 93 95 BMI result Body Mass Index 30.2 Labs Results: 10/01/21 19:18 10/01/21 19:18 Medications Medications Current Medications Acetaminophen (Acetaminophen 325 Mg Tablet) 650 mg PO Q6H PRN PRN Reason: Headache/Pain Mild Scale (1-3) Last Admin: 10/19/21 20:42 Dose: 650 mg Documented by: Acetaminophen (Acetaminophen 325 Mg Tablet) 650 mg PO Q6H PRN PRN Reason: Pain (Scale Score 1-3) Last Admin: 10/22/21 21:58 Dose: 650 mg Documented by: Al Hydroxide/Mg Hydroxide (Magnesium Hydrox/Alum Hydrox 30 Ml Oral.Susp) 30 ml PO Q6H PRN PRN Reason: Heartburn/Nausea Albuterol Sulfate (Albuterol Sulfate 90 Mcg 8 Gm Inhaler) 2 puff INHALE Q6H PRN PRN Reason: Shortness Of Breath Last Admin: 10/19/21 20:43 Dose: 2 puff Documented by: Amlodipine Besylate (Amlodipine Besylate 10 Mg Tablet) 10 mg PO DAILY [facility]; Protocol Last Admin: 10/23/21 05:55 Dose: 10 mg Documented by: Artificial Tears (Artificial Tears 15 Ml Drops) 1 drop EYE-BOTH Q1H PRN PRN Reason: Dry Eye(S) Last Admin: 10/12/21 14:13 Dose: 1 drop Documented by: Docusate Sodium (Docusate Sodium 100 Mg Capsule) 100 mg PO BEDTIME PRN PRN Reason: Constipation Last Admin: 10/19/21 20:41 Dose: 100 mg Documented by: Docusate Sodium (Docusate Sodium 100 Mg Capsule) 100 mg PO BID PRN PRN Reason: Constipation Last Admin: 10/19/21 09:38 Dose: 100 mg Documented by: Finasteride (Finasteride 5 Mg Tablet) 5 mg PO DAILY [facility] Last Admin: 10/23/21 13:00 Dose: 5 mg Documented by: Gabapentin (Gabapentin 400 Mg Capsule) 400 mg PO TID [facility] Last Admin: 10/23/21 21:03 Dose: 400 mg Documented by: Hydrocortisone (Hydrocortisone 1 % Cream 28.35 Gm Tube) 1 appl TOPICAL Q4H PRN; Protocol PRN Reason: RECTAL IRRITATION Last Admin: 10/19/21 20:43 Dose: 1 appl Documented by: Hydroxyzine HCl (Hydroxyzine Hcl 25 Mg Tablet) 25 mg PO BEDTIME PRN PRN Reason: Anxiety Last Admin: 10/20/21 20:35 Dose: 25 mg Documented by: Ibuprofen (Ibuprofen 400 Mg Tablet) 400 mg PO Q6H PRN PRN Reason: Pain, Moderate (Pain Scale 4-6 Last Admin: 10/23/21 19:53 Dose: 400 mg Documented by: Lamotrigine (Lamotrigine 100 Mg Tablet) 200 mg PO BID [facility] Last Admin: 10/23/21 21:06 Dose: 200 mg Documented by: Latanoprost (Latanoprost 0.005 % Ophth No 2.5 Ml Drops) 1 drop EYE-BOTH BEDTIME [facility] Last Admin: 10/23/21 21:10 Dose: Not Given Documented by: Lidocaine (Lidocaine 4 % Patch Adh..Patch) 1 patch TRANSDERMA DAILY [facility]; Protocol Last Admin: 10/23/21 13:01 Dose: Not Given Documented by: Lisinopril (Lisinopril 40 Mg Tablet) 40 mg PO DAILY [facility]; Protocol Last Admin: 10/23/21 05:57 Dose: 40 mg Documented by: Lorazepam (Lorazepam 0.5 Mg Tablet) 0.5 mg PO DAILY [facility] Last Admin: 10/23/21 13:01 Dose: 0.5 mg Documented by: Lorazepam (Lorazepam 0.5 Mg Tablet) 0.5 mg PO Q4H PRN PRN Reason: Anxiety Last Admin: 10/22/21 03:34 Dose: 0.5 mg Documented by: Lorazepam (Lorazepam 1 Mg Tablet) 1 mg PO BEDTIME TAZ Last Admin: 10/23/21 21:04 Dose: 1 mg Documented by: Magnesium Hydroxide (Milk Of Magnesia 30 Ml Oral.Susp) 30 ml PO DAILY PRN PRN Reason: Constipation Last Admin: 10/11/21 15:55 Dose: 30 ml Documented by: Magnesium Hydroxide (Milk Of Magnesia 30 Ml Oral.Susp) 30 ml PO Q72H PRN PRN Reason: Constipation Melatonin (Melatonin 3 Mg Tablet) 6 mg PO BEDTIME [facility] Last Admin: 10/23/21 21:04 Dose: 6 mg Documented by: Miconazole Nitrate (Miconazole 2 % Extra Thick Cr 56.7 Gm Tube) 1 appl TOPICAL BID [facility]; Protocol Last Admin: 10/23/21 21:06 Dose: Not Given Documented by: Mirtazapine (Mirtazapine 15 Mg Tablet) 45 mg PO BEDTIME [facility] Last Admin: 10/23/21 21:05 Dose: 45 mg Documented by: Multivitamins/Vitamin C (Multivitamin Tablet) 1 tab PO DAILY [facility] Last Admin: 10/23/21 13:00 Dose: 1 tab Documented by: Pharmacy Consult (Consult Rx Other Drug Dosing) 1 each MISCELLANE DAILY PRN PRN Reason: Consult order Polyethylene Glycol (Polyethylene Glycol 3350 17 Gm Powd.Pack) 17 gm PO DAILY PRN PRN Reason: Constipation Last Admin: 10/05/21 15:53 Dose: 17 gm Documented by: Polyethylene Glycol (Polyethylene Glycol 3350 17 Gm Powd.Pack) 17 gm PO DAILY@1600 [facility] Last Admin: 10/23/21 16:00 Dose: 17 gm Documented by: Quetiapine Fumarate (Quetiapine Fumarate 25 Mg Tablet) 25 mg PO BID PRN PRN Reason: Anxiety Last Admin: 10/20/21 04:39 Dose: 25 mg Documented by: Trazodone HCl (Trazodone Hcl 50 Mg Tablet) 50 mg PO BEDTIME PRN PRN Reason: Insomnia Last Admin: 10/01/21 23:41 Dose: 50 mg Documented by: Trazodone HCl (Trazodone Hcl 100 Mg Tablet) 300 mg PO BEDTIME [facility] Last Admin: 10/23/21 21:04 Dose: 300 mg Documented by: Vortioxetine (Vortioxetine Hydrobromide 10 Mg Tablet) 10 mg PO DAILY [facility] Last Admin: 10/23/21 13:00 Dose: 10 mg Documented by: Allergies Allergies Allergy/AdvReac Type Severity Reaction Status Date / Time fentanyl [FENTANYL] Allergy Intermediate unknown Verified 05/22/21 11:43 Assessment & Plan Assessment & Plan (1) Depression: Status: Acute Code(s): F32.A - Depression, unspecified Assessment and Plan: The patient is an elderly male with a long history of major depressive disorder and TBI, admitted before, very well known by the service.? He has been admitted for exacerbation of depression with suicidal ideation without a clear stressor.? Historically, the patient responds to ECT. Plan: Patient seems improved Continue 10 mg trintellix mirtazapine Lamictal gabapentin discharge planning referral for physical therapy outpatient schedule ECT outpatient in 2 weeks discharge planning referral to adult day health 10/21/21: Endorsing SI, hoplessness and depression. Will discus with team 10/21 ref mental state +/- modifying treatment/dispo planning. Discharge on hold consider ECT would clearly benefit from outpatient therapy which has been hard to arrange patient not to logical would benefit best from and person treatment. 10/22/2021 Patient continues depressed intermittently hopeless helpless despondent. May do better with intermittent ECT than 3 times a week consider dopamine agonist 10/23/21 evaluate pst ect (2) HTN (hypertension): Status: Acute Code(s): I10 - Essential (primary) hypertension Assessment and Plan: cont tx plan Assessment and Plan: Patient had tremor on or Rexulti NO DISCONTINUED ECT FOR TOMORROW DISCHARGE PLANNING ENCOURAGE OUTPATIENT ACTIVATION BEHAVIORAL STIMULATION MONITOR RESPONSE TO ECT SUGGEST CONSIDERATION OF CHANGING SUCCINYLCHOLINE TO NONDEPOLARIZING AN AGENT REVIEWED WITH I spent minutes with the patient and/or on the patient floor today, greater than?50% of which was spent counseling/coordinating care. Reason for contiued inpatient stay Substantial Risk for: harm to self and rapid decompensation
[2021-10-24] MEDS: LORazepam 0.5 MG TABLET PO ×2 (06:17→09:23)
[2021-10-24] MEDS: lamoTRIgine 100 MG TABLET 200 MG PO (09:23)
[2021-10-24 09:24] VITALS: BP 102/61; PULSE 74
[2021-10-24] MEDS: Finasteride 5 MG TABLET PO (09:24)
[2021-10-24] MEDS: Multivitamin TABLET 1 TAB PO (09:24)
[2021-10-24] MEDS: Gabapentin 400 MG CAPSULE PO ×2 (09:24→15:53)
[2021-10-24] MEDS: lisinopriL 40 MG TABLET PO (09:24)
[2021-10-24] MEDS: Vortioxetine Hydrobromide 10 MG TABLET PO (09:24)
[2021-10-24 09:25] VITALS: BP 102/61; PULSE 74
[2021-10-24] MEDS: amLODIPine Besylate 10 MG TABLET PO (09:25)
[2021-10-24 10:35] VITALS: BP 102/61; PULSE 74; TEMP 36.4; O2SAT 95
[2021-10-24] MEDS: Pramipexole Di-HCL 0.125 MG TABLET PO ×3 (15:53→20:51)
[2021-10-24] MEDS: polyethylene glycoL 3350 17 GM POWD.PACK PO (15:55)
[2021-10-24 18:00] VITALS: BP 132/86; PULSE 76; RESP 18; TEMP 36.6; O2SAT 96
[2021-10-24] MEDS: Latanoprost 0.005 % Ophth Sol 2.5 ML DROPS 1 DROP EYE-BOTH (20:51)
[2021-10-24] MEDS: Melatonin 3 MG TABLET 6 MG PO (20:51)
[2021-10-24] MEDS: traZODone HCL 100 MG TABLET 300 MG PO (20:51)
[2021-10-24] MEDS: Mirtazapine 15 MG TABLET 45 MG PO (20:52)
[2021-10-24 20:55] VITALS: BP 132/86; PULSE 76; RESP 18; TEMP 36.6; O2SAT 96
--- NOTE | 2021-10-24 20:59 | P.PNPSI_ITS ---
Subjective Subjective Date of Service: 10/24/21 Reason For Visit: MDD SI Subjective Notes: Conditional Voluntary Healthcare Proxy: No Guardianship: No Medication Compliance: Yes Attending Groups: Intermittent Review of Systems Psychiatric: Reports anxiety, Reports depression and Reports hopelessness Mental Status Exam Mental Status Exam Patient Appearance: Well Grooomed Level of Consciousness: Awake Mood Description: Depressed, Anxious and Apprehensive Affect Description: Anxious and Apprehensive Hallucinations: None Delusions: Not Present Thought Process: Intact and Rumination Thought Content: positive for Obsessional Thoughts, positive for Suicidal Ideation (passive) and negative for Homicidal Ideation Depressive Symptoms: Increased Anxiety, Hopelessness, Thoughts of /Suicide and Low Self Esteem Judgement: Fair Diagnostics Vital Signs (24Hr): Vital Signs - 24 hr 10/23/21 21:02 10/24/21 09:24 10/24/21 09:25 Temperature 97.9 F Pulse Rate 67 74 74 Respiratory Rate 19 Blood Pressure 120/64 102/61 102/61 Pulse Oximetry 95 10/24/21 10:35 10/24/21 20:55 Temperature 97.6 F 97.8 F Pulse Rate 74 76 Respiratory Rate 18 Blood Pressure 102/61 132/86 Pulse Oximetry 95 96 BMI result Body Mass Index 30.2 Labs Results: 10/01/21 19:18 10/01/21 19:18 Medications Medications Current Medications Acetaminophen (Acetaminophen 325 Mg Tablet) 650 mg PO Q6H PRN PRN Reason: Headache/Pain Mild Scale (1-3) Last Admin: 10/19/21 20:42 Dose: 650 mg Documented by: Acetaminophen (Acetaminophen 325 Mg Tablet) 650 mg PO Q6H PRN PRN Reason: Pain (Scale Score 1-3) Last Admin: 10/22/21 21:58 Dose: 650 mg Documented by: Al Hydroxide/Mg Hydroxide (Magnesium Hydrox/Alum Hydrox 30 Ml Oral.Susp) 30 ml PO Q6H PRN PRN Reason: Heartburn/Nausea Albuterol Sulfate (Albuterol Sulfate 90 Mcg 8 Gm Inhaler) 2 puff INHALE Q6H PRN PRN Reason: Shortness Of Breath Last Admin: 10/19/21 20:43 Dose: 2 puff Documented by: Amlodipine Besylate (Amlodipine Besylate 10 Mg Tablet) 10 mg PO DAILY TAZ; Protocol Last Admin: 10/24/21 09:25 Dose: 10 mg Documented by: Artificial Tears (Artificial Tears 15 Ml Drops) 1 drop EYE-BOTH Q1H PRN PRN Reason: Dry Eye(S) Last Admin: 10/12/21 14:13 Dose: 1 drop Documented by: Docusate Sodium (Docusate Sodium 100 Mg Capsule) 100 mg PO BEDTIME PRN PRN Reason: Constipation Last Admin: 10/19/21 20:41 Dose: 100 mg Documented by: Docusate Sodium (Docusate Sodium 100 Mg Capsule) 100 mg PO BID PRN PRN Reason: Constipation Last Admin: 10/19/21 09:38 Dose: 100 mg Documented by: Finasteride (Finasteride 5 Mg Tablet) 5 mg PO DAILY [facility] Last Admin: 10/24/21 09:24 Dose: 5 mg Documented by: Gabapentin (Gabapentin 400 Mg Capsule) 400 mg PO TID [facility] Last Admin: 10/24/21 15:53 Dose: 400 mg Documented by: Hydrocortisone (Hydrocortisone 1 % Cream 28.35 Gm Tube) 1 appl TOPICAL Q4H PRN; Protocol PRN Reason: RECTAL IRRITATION Last Admin: 10/19/21 20:43 Dose: 1 appl Documented by: Hydroxyzine HCl (Hydroxyzine Hcl 25 Mg Tablet) 25 mg PO BEDTIME PRN PRN Reason: Anxiety Last Admin: 10/20/21 20:35 Dose: 25 mg Documented by: Ibuprofen (Ibuprofen 400 Mg Tablet) 400 mg PO Q6H PRN PRN Reason: Pain, Moderate (Pain Scale 4-6 Last Admin: 10/23/21 19:53 Dose: 400 mg Documented by: Lamotrigine (Lamotrigine 100 Mg Tablet) 200 mg PO BID [facility] Last Admin: 10/24/21 09:23 Dose: 200 mg Documented by: Latanoprost (Latanoprost 0.005 % Ophth No 2.5 Ml Drops) 1 drop EYE-BOTH BEDTIME [facility] Last Admin: 10/24/21 20:51 Dose: 1 drop Documented by: Lidocaine (Lidocaine 4 % Patch Adh..Patch) 1 patch TRANSDERMA DAILY TAZ; Protocol Last Admin: 10/24/21 09:25 Dose: Not Given Documented by: Lisinopril (Lisinopril 40 Mg Tablet) 40 mg PO DAILY [facility]; Protocol Last Admin: 10/24/21 09:24 Dose: 40 mg Documented by: Lorazepam (Lorazepam 0.5 Mg Tablet) 0.5 mg PO DAILY [facility] Last Admin: 10/24/21 09:23 Dose: 0.5 mg Documented by: Lorazepam (Lorazepam 0.5 Mg Tablet) 0.5 mg PO Q4H PRN PRN Reason: Anxiety Last Admin: 10/24/21 06:17 Dose: 0.5 mg Documented by: Lorazepam (Lorazepam 1 Mg Tablet) 1 mg PO BEDTIME TAZ Last Admin: 10/23/21 21:04 Dose: 1 mg Documented by: Magnesium Hydroxide (Milk Of Magnesia 30 Ml Oral.Susp) 30 ml PO DAILY PRN PRN Reason: Constipation Last Admin: 10/11/21 15:55 Dose: 30 ml Documented by: Magnesium Hydroxide (Milk Of Magnesia 30 Ml Oral.Susp) 30 ml PO Q72H PRN PRN Reason: Constipation Melatonin (Melatonin 3 Mg Tablet) 6 mg PO BEDTIME [facility] Last Admin: 10/24/21 20:51 Dose: 6 mg Documented by: Miconazole Nitrate (Miconazole 2 % Extra Thick Cr 56.7 Gm Tube) 1 appl TOPICAL BID [facility]; Protocol Last Admin: 10/24/21 09:26 Dose: Not Given Documented by: Mirtazapine (Mirtazapine 15 Mg Tablet) 45 mg PO BEDTIME [facility] Last Admin: 10/24/21 20:52 Dose: 45 mg Documented by: Multivitamins/Vitamin C (Multivitamin Tablet) 1 tab PO DAILY [facility] Last Admin: 10/24/21 09:24 Dose: 1 tab Documented by: Pharmacy Consult (Consult Rx Other Drug Dosing) 1 each MISCELLANE DAILY PRN PRN Reason: Consult order Polyethylene Glycol (Polyethylene Glycol 3350 17 Gm Powd.Pack) 17 gm PO DAILY PRN PRN Reason: Constipation Last Admin: 10/05/21 15:53 Dose: 17 gm Documented by: Polyethylene Glycol (Polyethylene Glycol 3350 17 Gm Powd.Pack) 17 gm PO DAILY@1600 [facility] Last Admin: 10/24/21 15:55 Dose: 17 gm Documented by: Pramipexole Dihydrochloride (Pramipexole Di-Hcl 0.125 Mg Tablet) 0.125 mg PO TID [facility] Last Admin: 10/24/21 20:51 Dose: 0.125 mg Documented by: Quetiapine Fumarate (Quetiapine Fumarate 25 Mg Tablet) 25 mg PO BID PRN PRN Reason: Anxiety Last Admin: 10/20/21 04:39 Dose: 25 mg Documented by: Trazodone HCl (Trazodone Hcl 50 Mg Tablet) 50 mg PO BEDTIME PRN PRN Reason: Insomnia Last Admin: 10/01/21 23:41 Dose: 50 mg Documented by: Trazodone HCl (Trazodone Hcl 100 Mg Tablet) 300 mg PO BEDTIME TAZ Last Admin: 10/24/21 20:51 Dose: 300 mg Documented by: Vortioxetine (Vortioxetine Hydrobromide 10 Mg Tablet) 10 mg PO DAILY [facility] Last Admin: 10/24/21 09:24 Dose: 10 mg Documented by: Allergies Allergies Allergy/AdvReac Type Severity Reaction Status Date / Time fentanyl [FENTANYL] Allergy Intermediate unknown Verified 05/22/21 11:43 Assessment & Plan Assessment & Plan (1) Depression: Status: Acute Code(s): F32.A - Depression, unspecified Assessment and Plan: The patient is an elderly male with a long history of major depressive disorder and TBI, admitted before, very well known by the service.? He has been admitted for exacerbation of depression with suicidal ideation without a clear stressor.? Historically, the patient responds to ECT. Plan: Patient seems improved Continue 10 mg trintellix mirtazapine Lamictal gabapentin discharge planning referral for physical therapy outpatient schedule ECT outpatient in 2 weeks discharge planning referral to adult day health 10/21/21: Endorsing SI, hoplessness and depression. Will discus with team 10/21 ref mental state +/- modifying treatment/dispo planning. Discharge on hold consider ECT would clearly benefit from outpatient therapy which has been hard to arrange patient not to logical would benefit best from and person treatment. 10/22/2021 Patient continues depressed intermittently hopeless helpless despondent. May do better with intermittent ECT than 3 times a week consider dopamine agonist 10/24/21 evaluate ect (2) HTN (hypertension): Status: Acute Code(s): I10 - Essential (primary) hypertension Assessment and Plan: cont tx plan Assessment and Plan: will continue ect taper remeron I spent minutes with the patient and/or on the patient floor today, g reater than?50% of which was spent counseling/coordinating care. Reason for contiued inpatient stay Substantial Risk for: harm to self and rapid decompensation
[2021-10-25] VITALS (10 sets, daily range): BP systolic 116–180; BP diastolic 64–95; PULSE 68–102; RESP 16–20; TEMP 36.4–36.7; O2SAT 94–98
[2021-10-25] MEDS: lisinopriL 40 MG TABLET PO (06:13)
[2021-10-25] MEDS: amLODIPine Besylate 10 MG TABLET PO (06:13)
[2021-10-25] MEDS: Albuterol Sulfate 90 MCG 8 GM INHALER 2 PUFF INHALE ×2 (06:25→20:52)
--- NOTE | 2021-10-25 06:56 | HO.ANESPROP2 ---
[facility] Active Problems Active Problems: All Active Problems (Updated 10/05/21 @ 12:23 by MICHELE Zhu) Depression (Acute) Suicidal ideation (Acute) Major depressive disorder, recurrent severe without psychotic features (Acute) Cognitive and neurobehavioral dysfunction following brain injury (Acute) HTN (hypertension) (Acute) Past Medical History Medical History Alcohol use disorder, severe, in sustained remission Cognitive and neurobehavioral dysfunction following brain injury Hernia HTN (hypertension) Major depressive disorder, recurrent Major depressive disorder, recurrent severe without psychotic features Subdural hematoma TBI (traumatic brain injury) Functional capacity: independent ambulation Family History Family history of problems with anesthesia: No Surgical History Surgical History H/O brain surgery H/O umbilical hernia repair History of hip replacement S/P cholecystectomy History of Problems with Anesthesia: No Social History Social History Household Members: None Household Members Other:: Pt lives in a skilled nursing Housing: Other Housing Other:: skilled nursing. Do you presently have visiting nurse or other home services: No Alcohol intake: former Patient Tobacco Use Status: Never used Tobacco Use of substances other than those prescribed or required for medical reasons: No Currently Displaying Signs/Symptoms of Drug Intoxication Withdrawal: No Any prior treatment program specific to substance use: No Have you been hit, kicked, punched, or otherwise hurt by someone within the past year? If so, by whom?: No Do you feel safe in your current relationship?: No Current Relationship Is there a partner from a previous relationship who is making you feel unsafe now?: No Are you made to feel afraid or neglected: No Hindu Healthcare Practices: Mosque. Are you DNR?: No Advance Directives: No Advance Directives Information Provided: No Advance Directives Date on File: 05/27/19 Healthcare Proxy: Yes Guardian: No Do you have thoughts of harming others: None Do you have a plan to hurt others: No Plan Recently lost weight without trying: No How much weight loss: Not applicable Eating poorly because of decreased appetite: No Nutrition screen score: 0 Nutrition Risks: No Nutritional Risk Poor oral hygiene: No service: No Sexual orientation: Straight/Heterosexual Meds Allergies Allergy/AdvReac Type Severity Reaction Status Date / Time fentanyl [FENTANYL] Allergy Intermediate unknown Verified 05/22/21 11:43 Active Medications: Current Medications Acetaminophen (Acetaminophen 325 Mg Tablet) 650 mg PO Q6H PRN PRN Reason: Headache/Pain Mild Scale (1-3) Last Admin: 10/19/21 20:42 Dose: 650 mg Documented by: Acetaminophen (Acetaminophen 325 Mg Tablet) 650 mg PO Q6H PRN PRN Reason: Pain (Scale Score 1-3) Last Admin: 10/22/21 21:58 Dose: 650 mg Documented by: Al Hydroxide/Mg Hydroxide (Magnesium Hydrox/Alum Hydrox 30 Ml Oral.Susp) 30 ml PO Q6H PRN PRN Reason: Heartburn/Nausea Albuterol Sulfate (Albuterol Sulfate 90 Mcg 8 Gm Inhaler) 2 puff INHALE Q6H PRN PRN Reason: Shortness Of Breath Last Admin: 10/25/21 06:25 Dose: 2 puff Documented by: Amlodipine Besylate (Amlodipine Besylate 10 Mg Tablet) 10 mg PO DAILY [facility]Z; Protocol Last Admin: 10/25/21 06:13 Dose: 10 mg Documented by: Artificial Tears (Artificial Tears 15 Ml Drops) 1 drop EYE-BOTH Q1H PRN PRN Reason: Dry Eye(S) Last Admin: 10/12/21 14:13 Dose: 1 drop Documented by: Docusate Sodium (Docusate Sodium 100 Mg Capsule) 100 mg PO BEDTIME PRN PRN Reason: Constipation Last Admin: 10/19/21 20:41 Dose: 100 mg Documented by: Docusate Sodium (Docusate Sodium 100 Mg Capsule) 100 mg PO BID PRN PRN Reason: Constipation Last Admin: 10/19/21 09:38 Dose: 100 mg Documented by: Finasteride (Finasteride 5 Mg Tablet) 5 mg PO DAILY TAZ Last Admin: 10/24/21 09:24 Dose: 5 mg Documented by: Gabapentin (Gabapentin 400 Mg Capsule) 400 mg PO TID TAZ Last Admin: 10/24/21 21:12 Dose: Not Given Documented by: Hydrocortisone (Hydrocortisone 1 % Cream 28.35 Gm Tube) 1 appl TOPICAL Q4H PRN; Protocol PRN Reason: RECTAL IRRITATION Last Admin: 10/19/21 20:43 Dose: 1 appl Documented by: Hydroxyzine HCl (Hydroxyzine Hcl 25 Mg Tablet) 25 mg PO BEDTIME PRN PRN Reason: Anxiety Last Admin: 10/20/21 20:35 Dose: 25 mg Documented by: Ibuprofen (Ibuprofen 400 Mg Tablet) 400 mg PO Q6H PRN PRN Reason: Pain, Moderate (Pain Scale 4-6 Last Admin: 10/23/21 19:53 Dose: 400 mg Documented by: Lamotrigine (Lamotrigine 100 Mg Tablet) 200 mg PO BID [facility] Last Admin: 10/24/21 21:12 Dose: Not Given Documented by: Latanoprost (Latanoprost 0.005 % Ophth No 2.5 Ml Drops) 1 drop EYE-BOTH BEDTIME [facility] Last Admin: 10/24/21 20:51 Dose: 1 drop Documented by: Lidocaine (Lidocaine 4 % Patch Adh..Patch) 1 patch TRANSDERMA DAILY [facility]; Protocol Last Admin: 10/24/21 09:25 Dose: Not Given Documented by: Lisinopril (Lisinopril 40 Mg Tablet) 40 mg PO DAILY [facility]; Protocol Last Admin: 10/25/21 06:13 Dose: 40 mg Documented by: Lorazepam (Lorazepam 0.5 Mg Tablet) 0.5 mg PO DAILY [facility] Last Admin: 10/24/21 09:23 Dose: 0.5 mg Documented by: Lorazepam (Lorazepam 0.5 Mg Tablet) 0.5 mg PO Q4H PRN PRN Reason: Anxiety Last Admin: 10/24/21 06:17 Dose: 0.5 mg Documented by: Lorazepam (Lorazepam 1 Mg Tablet) 1 mg PO BEDTIME TAZ Last Admin: 10/24/21 21:12 Dose: Not Given Documented by: Magnesium Hydroxide (Milk Of Magnesia 30 Ml Oral.Susp) 30 ml PO DAILY PRN PRN Reason: Constipation Last Admin: 10/11/21 15:55 Dose: 30 ml Documented by: Magnesium Hydroxide (Milk Of Magnesia 30 Ml Oral.Susp) 30 ml PO Q72H PRN PRN Reason: Constipation Melatonin (Melatonin 3 Mg Tablet) 6 mg PO BEDTIME [facility] Last Admin: 10/24/21 20:51 Dose: 6 mg Documented by: Miconazole Nitrate (Miconazole 2 % Extra Thick Cr 56.7 Gm Tube) 1 appl TOPICAL BID [facility]; Protocol Last Admin: 10/24/21 21:13 Dose: Not Given Documented by: Mirtazapine (Mirtazapine 15 Mg Tablet) 45 mg PO BEDTIME [facility] Last Admin: 10/24/21 20:52 Dose: 45 mg Documented by: Multivitamins/Vitamin C (Multivitamin Tablet) 1 tab PO DAILY [facility] Last Admin: 10/24/21 09:24 Dose: 1 tab Documented by: Pharmacy Consult (Consult Rx Other Drug Dosing) 1 each MISCELLANE DAILY PRN PRN Reason: Consult order Polyethylene Glycol (Polyethylene Glycol 3350 17 Gm Powd.Pack) 17 gm PO DAILY PRN PRN Reason: Constipation Last Admin: 10/05/21 15:53 Dose: 17 gm Documented by: Polyethylene Glycol (Polyethylene Glycol 3350 17 Gm Powd.Pack) 17 gm PO DAILY@1600 [facility] Last Admin: 10/24/21 15:55 Dose: 17 gm Documented by: Pramipexole Dihydrochloride (Pramipexole Di-Hcl 0.125 Mg Tablet) 0.125 mg PO TID [facility] Last Admin: 10/24/21 20:51 Dose: 0.125 mg Documented by: Quetiapine Fumarate (Quetiapine Fumarate 25 Mg Tablet) 25 mg PO BID PRN PRN Reason: Anxiety Last Admin: 10/20/21 04:39 Dose: 25 mg Documented by: Trazodone HCl (Trazodone Hcl 50 Mg Tablet) 50 mg PO BEDTIME PRN PRN Reason: Insomnia Last Admin: 10/01/21 23:41 Dose: 50 mg Documented by: Trazodone HCl (Trazodone Hcl 100 Mg Tablet) 300 mg PO BEDTIME [facility] Last Admin: 10/24/21 20:51 Dose: 300 mg Documented by: Vortioxetine (Vortioxetine Hydrobromide 10 Mg Tablet) 10 mg PO DAILY [facility] Last Admin: 10/24/21 09:24 Dose: 10 mg Documented by: Home Medications Medication Instructions Recorded Confirmed Last Taken Type clotrimazole 1 % topical solution See Rx Instructions .ROUTE 05/22/21 10/01/21 Unknown History .COMPLEX PRN dextromethorphan-guaifenesin 10 10 ml PO Q6H PRN 05/22/21 10/01/21 Unknown History mg-200 mg/5 mL oral liquid docusate sodium 100 mg capsule See Rx Instructions .ROUTE 05/22/21 10/01/21 Unknown History .COMPLEX PRN finasteride 5 mg tablet 1 tab PO DAILY 05/22/21 10/01/21 10/01/21 History latanoprost 0.005 % eye drops 1 drp OPHTHALMIC (EYE) BEDTIME 05/22/21 10/01/21 Unknown History magnesium hydroxide 400 mg/5 mL 2,400 mg PO Q72H PRN 05/22/21 10/01/21 Unknown History oral suspension (Milk of Magnesia) melatonin 5 mg tablet 5 mg PO BEDTIME 05/22/21 10/01/21 09/30/21 History hltmqzawdvty-jlabdace-porvlf tablet 1 tab PO DAILY 05/22/21 10/01/21 10/01/21 History polyethylene glycol 3350 17 17 g PO DAILY PRN 05/22/21 10/01/21 Unknown History gram/dose oral powder polyethylene glycol 3350 17 17 g PO DAILY@1600 05/22/21 10/01/21 Unknown History gram/dose oral powder psyllium husk 0.4 gram capsule 0.4 g PO DAILY 05/22/21 10/01/21 10/01/21 History (Metamucil) trazodone 150 mg tablet 2 tab PO BEDTIME 05/22/21 10/01/21 09/30/21 History acetaminophen 325 mg tablet 650 mg PO Q6H PRN 10/01/21 10/02/21 Unknown History albuterol sulfate 90 mcg/actuation 2 puff INHALATION Q6H PRN 10/01/21 10/01/21 Unknown History aerosol inhaler artifi.tears(hypromellose)(PF) 0.3 1 drp OPHTHALMIC (EYE) Q1H PRN 10/01/21 10/01/21 Unknown History % eye drops brexpiprazole 3 mg tablet (Rexulti) 1 tab PO DAILY 10/01/21 10/01/21 10/01/21 History guaifenesin 200 mg capsule 200 mg PO Q6H PRN 10/01/21 10/01/21 Unknown History hydrocortisone 1 % topical cream 1 appl TOPICAL Q4H PRN 10/01/21 10/01/21 Unknown History lamotrigine 200 mg tablet 1 tab PO BID 10/01/21 10/01/21 10/01/21 History miconazole nitrate 2 % topical 1 appl TOPICAL BID 10/01/21 10/01/21 Unknown History cream mirtazapine 45 mg tablet 1 tab PO BEDTIME 10/01/21 10/01/21 Unknown History quetiapine 25 mg tablet 25 mg PO BID PRN 10/01/21 10/01/21 Unknown History vortioxetine 5 mg tablet 1 tab PO DAILY 10/01/21 10/01/21 10/01/21 History (Trintellix) Exam Exam Date and Time: October 25, 2021 0656 Height,Weight and Vital Signs: Height 6 ft 2 in Weight 106.8 kg Last Vital Signs Temp 97.9 F 10/25/21 06:45 Pulse 102 H 10/25/21 06:45 Resp 19 10/25/21 06:45 BP 151/95 H 10/25/21 06:45 Pulse Ox 98 10/25/21 06:45 Pertinent Lab Results Pertinent Lab Results: Laboratory Tests 10/01/21 10/01/21 10/01/21 19:18 19:18 20:03 WBC 5.9 RBC 4.34 L Hgb 14.1 Hct 42.1 MCV 97.0 MCH 32.5 MCHC 33.5 RDW 11.7 Plt Count 146 L MPV 10.1 Immature Gran % (Auto) 0.5 H Neut % (Auto) 59.8 Lymph % (Auto) 29.3 [place] % (Auto) 4.8 Eos % (Auto) 5.3 H Baso % (Auto) 0.3 Lymph # (Auto) 1.7 [place] # (Auto) 0.3 Eos # (Auto) 0.3 Baso # (Auto) 0.0 Abs Immat Gran (auto) 0.03 Absolute Neuts (auto) 3.5 Absolute Nucleated RBC 0.000 Nucleated RBC % (auto) 0.0 Sodium 139 Potassium 4.3 Chloride 103 Carbon Dioxide 27 Anion Gap 13 BUN 17 H Creatinine 1.06 Estim Creat Clear Calc 90.0 Estimated GFR > 60 Random Glucose 154 H D Estimat Average Glucose Hemoglobin A1c % Calcium 9.3 Total Bilirubin 0.3 AST 27 ALT 43 H Alkaline Phosphatase 72 Total Protein 6.9 Albumin 4.5 25-OH Vitamin D Total 25-Hydroxy Vitamin D2 25-Hydroxy Vitamin D3 Urine Color Urine Appearance Urine pH Ur Specific [place] Urine Protein Urine Glucose (UA) Urine Ketones Urine Blood Urine Nitrite Ur Leukocyte Esterase Urine RBC Urine WBC Ur Squamous Epith Cells Urine Bacteria Hyaline Casts Urine Mucus Urine Opiates Screen Urine Fentanyl Screen Ur Barbiturates Screen Lamotrigine Ur Phencyclidine Scrn Ur Amphetamines Screen U Benzodiazepines Scrn Urine Cocaine Screen U Marijuana (THC) Screen COVID-19 ([facility]ACHEL) Negative COVID-19 Clin Com See Note 10/03/21 10/03/21 10/09/21 05:50 05:50 07:37 WBC RBC Hgb Hct MCV MCH MCHC RDW Plt Count MPV Immature Gran % (Auto) Neut % (Auto) Lymph % (Auto) [place] % (Auto) Eos % (Auto) Baso % (Auto) Lymph # (Auto) [place] # (Auto) Eos # (Auto) Baso # (Auto) Abs Immat Gran (auto) Absolute Neuts (auto) Absolute Nucleated RBC Nucleated RBC % (auto) Sodium Potassium Chloride Carbon Dioxide Anion Gap BUN Creatinine Estim Creat Clear Calc Estimated GFR Random Glucose Estimat Average Glucose Hemoglobin A1c % Calcium Total Bilirubin AST ALT Alkaline Phosphatase Total Protein Albumin 25-OH Vitamin D Total 25 L 25-Hydroxy Vitamin D2 <4 25-Hydroxy Vitamin D3 25 Urine Color YELLOW Urine Appearance CLEAR Urine pH 6.0 Ur Specific [place] 1.015 Urine Protein NEG Urine Glucose (UA) NEG Urine Ketones NEG Urine Blood NEG Urine Nitrite NEG Ur Leukocyte Esterase NEG Urine RBC 0-2 Urine WBC 0 Ur Squamous Epith Cells 2+ Urine Bacteria TRACE Hyaline Casts 5-9 Urine Mucus 2+ Urine Opiates Screen Not Detected Urine Fentanyl Screen Not Detected Ur Barbiturates Screen Not Detected Lamotrigine 7.2 Ur Phencyclidine Scrn Not Detected Ur Amphetamines Screen Not Detected U Benzodiazepines Scrn Not Detected Urine Cocaine Screen Not Detected U Marijuana (THC) Screen Not Detected COVID-19 ([facility]ACHEL) COVID-19 Clin Com 10/15/21 10/15/21 06:42 06:42 WBC RBC Hgb Hct MCV MCH MCHC RDW Plt Count MPV Immature Gran % (Auto) Neut % (Auto) Lymph % (Auto) [place] % (Auto) Eos % (Auto) Baso % (Auto) Lymph # (Auto) [place] # (Auto) Eos # (Auto) Baso # (Auto) Abs Immat Gran (auto) Absolute Neuts (auto) Absolute Nucleated RBC Nucleated RBC % (auto) Sodium Potassium Chloride Carbon Dioxide Anion Gap BUN Creatinine Estim Creat Clear Calc Estimated GFR Random Glucose Estimat Average Glucose 105 Hemoglobin A1c % 5.3 Calcium Total Bilirubin AST ALT Alkaline Phosphatase Total Protein Albumin 25-OH Vitamin D Total 25-Hydroxy Vitamin D2 25-Hydroxy Vitamin D3 Urine Color Urine Appearance Urine pH Ur Specific [place] Urine Protein Urine Glucose (UA) Urine Ketones Urine Blood Urine Nitrite Ur Leukocyte Esterase Urine RBC Urine WBC Ur Squamous Epith Cells Urine Bacteria Hyaline Casts Urine Mucus Urine Opiates Screen Urine Fentanyl Screen Ur Barbiturates Screen Lamotrigine 8.9 Ur Phencyclidine Scrn Ur Amphetamines Screen U Benzodiazepines Scrn Urine Cocaine Screen U Marijuana (THC) Screen COVID-19 ([facility]HEL) COVID-19 Clin Com Airway Mallampati Class: III TM Dist: >3cm Neck ROM: Full Heart: rrr Lungs: cta Assessment and Plan Assessment Anesthesia Assessment: Anesthesia Plan Discussed and Chart Reviewed Final Anesthetic Review Family History of Problems with Anesthesia: No History of Problems with Anesthesia: No NPO: Yes ASA Class: III Final Preanesthetic Review: No Changes in Pt Med Stat, Meds/Allgs Chart Reviewed and Consent Obtained/Reviewed Patient Risk: Intermediate Procedure Risk: Intermediate Anesthetic Plan Anesthetic Plan: GA Disposition: Standard PACU
--- NOTE | 2021-10-25 07:36 | MHC.SHP ---
Pre-Procedural Eval Section A Date of Service: 10/25/21 The patient is an INPATIENT: Yes Changes since office visit: Yes Changes in Medication and Yes Patient answered all questions; No Cold of Flu in the past 2 weeks and No New Medical Problems The History & Physical has been completed within 30 days and I have reviewed it.: Yes Section B Chief Complaint: MDD SI Allergies: Allergies Allergy/AdvReac Type Severity Reaction Status Date / Time fentanyl [FENTANYL] Allergy Intermediate unknown Verified 05/22/21 11:43 Plan I have reviewed the history and physical and performed a pertinent physical examination on my patient. No changes have occurred unless specified.
--- NOTE | 2021-10-25 08:01 | HO.ECTPROC ---
ECT Procedure Note Diagnosis/Treatment Date of Service: 10/25/21 Diagnosis: Major Depressive Disorder Previous ECT Date: 10/23/21 Current Treatment Number: 4 Treatment: Series Interval Clinical Notes: pt remains depressed anxious ruminating ECT Settings Device: THYMATRON DGx Electrode Placement: Bifrontal Program/Pulse Width: 0.50 Energy Percent: 100 Seizure Duration By EEG (in seconds): 95 Medications Administration General Anesthetic: Etomidate (100) Muscle Relaxant: Succinylcholine and Rocuronium (4 mg) Ancillary Medications Anti-emetics: Zofran - Pre ECT Cardiovascular Medications: Labetolol (10 mg pre tx) Miscillaneous Medications: Propofol Airway Management Airway Management: Bag Mask Ventilation Treatment Recommendations No Changes Recommended: No change Energy Percent: 60 Notes: labetolol 10 mg pre tx Was quite helpful Pt Tolerated Procedure w/o Issue: Yes
[2021-10-25] MEDS: Acetaminophen 325 MG TABLET 650 MG PO ×2 (08:40→21:12)
[2021-10-25] MEDS: Multivitamin TABLET 1 TAB PO (10:30)
[2021-10-25] MEDS: lamoTRIgine 100 MG TABLET 200 MG PO ×2 (10:31→20:45)
[2021-10-25] MEDS: Finasteride 5 MG TABLET PO (10:33)
[2021-10-25] MEDS: Gabapentin 400 MG CAPSULE PO ×3 (10:33→20:50)
[2021-10-25] MEDS: Pramipexole Di-HCL 0.125 MG TABLET PO ×3 (10:36→20:47)
[2021-10-25] MEDS: Vortioxetine Hydrobromide 10 MG TABLET PO (10:45)
[2021-10-25] MEDS: polyethylene glycoL 3350 17 GM POWD.PACK PO (16:43)
[2021-10-25] MEDS: Latanoprost 0.005 % Ophth Sol 2.5 ML DROPS 1 DROP EYE-BOTH (20:17)
[2021-10-25] MEDS: Melatonin 3 MG TABLET 6 MG PO (20:45)
[2021-10-25] MEDS: traZODone HCL 100 MG TABLET 300 MG PO (20:46)
[2021-10-25] MEDS: LORazepam 1 MG TABLET PO (20:48)
[2021-10-25] MEDS: Mirtazapine 15 MG TABLET PO (20:50)
[2021-10-25] MEDS: Hydrocortisone 1 % Cream 28.35 GM TUBE 1 APPL TOPICAL (20:52)
[2021-10-26] MEDS: Acetaminophen 325 MG TABLET 650 MG PO (03:36)
[2021-10-26 06:00] VITALS: BP 124/65; PULSE 74; RESP 16; O2SAT 96
--- NOTE | 2021-10-26 10:13 | P.PNPSI_ITS ---
Subjective Subjective Date of Service: 10/26/21 Reason For Visit: MDD SI Subjective Notes: Conditional Voluntary Interim History: Pt reports feeling very hopeless, helpless. he reports passive SI but denies any plan or intent to hurt himself. Pt reports fair sleep. Pt reports feeling very anxious today. He asks for ativan dose. Pt has been visible in the unit, but not interactive with peers unless they come to him. No behavioral concerns. ECT thursday. Review of Systems Review of Systems unremarkable Yes all other systems are reviewed and are negative Constitutional: Reports no additional constitutional complaints, Denies chills and Denies fever(s) Denies vertigo and Denies dizziness Cardiovascular: Reports no additional cardiovascular complaints and Denies chest pain Respiratory: Reports no additional respiratory complaints and Denies cough Gastrointestinal: Denies abdominal pain Denies vertigo and Denies dizziness Psychiatric: Reports anxiety, Reports depression and Reports hopelessness Mental Status Exam Mental Status Exam Narrative: Wheelchair, appropriately dressed and hygiene. Depressed. SI in context of hopelessness and discharge feeling in a black hole and a fog . More active SI difficulty keeping things in perspective understanding that there is a process HI. No psychosis or agitation. Insight and judgment fair. Diagnostics Vital Signs (24Hr): Vital Signs - 24 hr 10/27/21 06:00 10/27/21 10:39 10/27/21 18:00 Temperature 98.6 F 97.4 F Pulse Rate 72 72 71 Respiratory Rate 18 20 Blood Pressure 130/71 130/71 175/85 H Pulse Oximetry 95 96 BMI result Body Mass Index 30.2 Labs Results: 10/01/21 19:18 10/01/21 19:18 Medications Medications Current Medications Acetaminophen (Acetaminophen 325 Mg Tablet) 650 mg PO Q6H PRN PRN Reason: Pain (Scale Score 1-3) Last Admin: 10/25/21 08:40 Dose: 650 mg Documented by: Al Hydroxide/Mg Hydroxide (Magnesium Hydrox/Alum Hydrox 30 Ml Oral.Susp) 30 ml PO Q6H PRN PRN Reason: Heartburn/Nausea Albuterol Sulfate (Albuterol Sulfate 90 Mcg 8 Gm Inhaler) 2 puff INHALE Q6H PRN PRN Reason: Shortness Of Breath Last Admin: 10/25/21 20:52 Dose: 2 puff Documented by: Amlodipine Besylate (Amlodipine Besylate 10 Mg Tablet) 10 mg PO DAILY [facility]; Protocol Last Admin: 10/27/21 10:39 Dose: 10 mg Documented by: Artificial Tears (Artificial Tears 15 Ml Drops) 1 drop EYE-BOTH Q1H PRN PRN Reason: Dry Eye(S) Last Admin: 10/12/21 14:13 Dose: 1 drop Documented by: Docusate Sodium (Docusate Sodium 100 Mg Capsule) 100 mg PO BEDTIME PRN PRN Reason: Constipation Last Admin: 10/19/21 20:41 Dose: 100 mg Documented by: Docusate Sodium (Docusate Sodium 100 Mg Capsule) 100 mg PO BID PRN PRN Reason: Constipation Last Admin: 10/19/21 09:38 Dose: 100 mg Documented by: Famotidine (Famotidine 20 Mg Tablet) 20 mg PO BID@0700,1730 [facility] Last Admin: 10/27/21 18:14 Dose: 20 mg Documented by: Finasteride (Finasteride 5 Mg Tablet) 5 mg PO DAILY [facility] Last Admin: 10/27/21 10:40 Dose: 5 mg Documented by: Gabapentin (Gabapentin 400 Mg Capsule) 400 mg PO TID [facility] Last Admin: 10/27/21 15:45 Dose: 400 mg Documented by: Hydrocortisone (Hydrocortisone 1 % Cream 28.35 Gm Tube) 1 appl TOPICAL Q4H PRN; Protocol PRN Reason: RECTAL IRRITATION Last Admin: 10/26/21 21:38 Dose: 1 appl Documented by: Hydroxyzine HCl (Hydroxyzine Hcl 25 Mg Tablet) 25 mg PO BEDTIME PRN PRN Reason: Anxiety Last Admin: 10/20/21 20:35 Dose: 25 mg Documented by: Ibuprofen (Ibuprofen 400 Mg Tablet) 400 mg PO Q6H PRN PRN Reason: Pain, Moderate (Pain Scale 4-6 Last Admin: 10/27/21 05:42 Dose: 400 mg Documented by: Lamotrigine (Lamotrigine 100 Mg Tablet) 200 mg PO BID [facility] Last Admin: 10/27/21 10:37 Dose: 200 mg Documented by: Latanoprost (Latanoprost 0.005 % Ophth No 2.5 Ml Drops) 1 drop EYE-BOTH BEDTIME [facility] Last Admin: 10/26/21 21:19 Dose: 1 drop Documented by: Lidocaine (Lidocaine 4 % Patch Adh..Patch) 1 patch TRANSDERMA DAILY [facility]; Protocol Last Admin: 10/27/21 10:40 Dose: Not Given Documented by: Lisinopril (Lisinopril 40 Mg Tablet) 40 mg PO DAILY [facility]; Protocol Last Admin: 10/27/21 10:39 Dose: 40 mg Documented by: Lorazepam (Lorazepam 1 Mg Tablet) 1 mg PO BEDTIME [facility] Last Admin: 10/26/21 21:34 Dose: 1 mg Documented by: Lorazepam (Lorazepam 0.5 Mg Tablet) 0.5 mg PO QID PRN PRN Reason: Anxiety Last Admin: 10/27/21 05:40 Dose: 0.5 mg Documented by: Magnesium Hydroxide (Milk Of Magnesia 30 Ml Oral.Susp) 30 ml PO DAILY PRN PRN Reason: Constipation Last Admin: 10/11/21 15:55 Dose: 30 ml Documented by: Magnesium Hydroxide (Milk Of Magnesia 30 Ml Oral.Susp) 30 ml PO Q72H PRN PRN Reason: Constipation Melatonin (Melatonin 3 Mg Tablet) 6 mg PO BEDTIME [facility] Last Admin: 10/26/21 21:37 Dose: 6 mg Documented by: Miconazole Nitrate (Miconazole 2 % Extra Thick Cr 56.7 Gm Tube) 1 appl TOPICAL BID [facility]; Protocol Last Admin: 10/27/21 10:41 Dose: Not Given Documented by: Mirtazapine (Mirtazapine 15 Mg Tablet) 15 mg PO BEDTIME [facility] Last Admin: 10/26/21 21:38 Dose: 15 mg Documented by: Multivitamins/Vitamin C (Multivitamin Tablet) 1 tab PO DAILY [facility] Last Admin: 10/27/21 10:39 Dose: 1 tab Documented by: Pharmacy Consult (Consult Rx Other Drug Dosing) 1 each MISCELLANE DAILY PRN PRN Reason: Consult order Polyethylene Glycol (Polyethylene Glycol 3350 17 Gm Powd.Pack) 17 gm PO DAILY PRN PRN Reason: Constipation Last Admin: 10/05/21 15:53 Dose: 17 gm Documented by: Polyethylene Glycol (Polyethylene Glycol 3350 17 Gm Powd.Pack) 17 gm PO DAILY@1600 [facility] Last Admin: 10/26/21 19:56 Dose: 17 gm Documented by: Pramipexole Dihydrochloride (Pramipexole Di-Hcl 0.125 Mg Tablet) 0.125 mg PO TID [facility] Last Admin: 10/27/21 15:45 Dose: 0.125 mg Documented by: Quetiapine Fumarate (Quetiapine Fumarate 25 Mg Tablet) 25 mg PO BID PRN PRN Reason: Anxiety Last Admin: 10/20/21 04:39 Dose: 25 mg Documented by: Trazodone HCl (Trazodone Hcl 50 Mg Tablet) 50 mg PO BEDTIME PRN PRN Reason: Insomnia Last Admin: 10/01/21 23:41 Dose: 50 mg Documented by: Trazodone HCl (Trazodone Hcl 100 Mg Tablet) 300 mg PO BEDTIME [facility] Last Admin: 10/26/21 21:36 Dose: 300 mg Documented by: Vortioxetine (Vortioxetine Hydrobromide 10 Mg Tablet) 10 mg PO DAILY [facility] Last Admin: 10/27/21 10:39 Dose: 10 mg Documented by: Allergies Allergies Allergy/AdvReac Type Severity Reaction Status Date / Time fentanyl [FENTANYL] Allergy Intermediate unknown Verified 05/22/21 11:43 Assessment & Plan Assessment & Plan (1) Depression: Status: Acute Code(s): F32.A - Depression, unspecified Assessment and Plan: The patient is an elderly male with a long history of major depressive disorder and TBI, admitted before, very well known by the service.? He has been admitted for exacerbation of depression with suicidal ideation without a clear stressor.? Historically, the patient responds to ECT. Plan: Patient seems improved Continue 10 mg trintellix mirtazapine Lamictal gabapentin discharge planning referral for physical therapy outpatient schedule ECT outpatient in 2 weeks discharge planning referral to adult day health 10/21/21: Endorsing SI, hoplessness and depression. Will discus with team 10/21 ref mental state +/- modifying treatment/dispo planning. Discharge on hold consider ECT would clearly benefit from outpatient therapy which has been hard to arrange patient not to logical would benefit best from and person treatment. 10/22/2021 Patient continues depressed intermittently hopeless helpless despondent. May do better with intermittent ECT than 3 times a week consider dopamine agonist 10/24/21 evaluate ect 10/26: pt reports feeling very hopeless/helpless, passive SI, denies plan or intent. anxious mood, reports ativan helpful. Looking forward to have ECT on Thursday. no medication changes. (2) HTN (hypertension): Status: Acute Code(s): I10 - Essential (primary) hypertension Assessment and Plan: cont tx plan Assessment and Plan: will continue ect taper remeron I spent minutes with the patient and/or on the patient floor today, greater than?50% of which was spent counseling/coordinating care. Reason for contiued inpatient stay Substantial Risk for: inability to function
[2021-10-26 10:30] VITALS: BP 124/65; PULSE 74
[2021-10-26] MEDS: Finasteride 5 MG TABLET PO (10:30)
[2021-10-26] MEDS: amLODIPine Besylate 10 MG TABLET PO (10:30)
[2021-10-26] MEDS: Multivitamin TABLET 1 TAB PO (10:30)
[2021-10-26 10:31] VITALS: BP 124/65; PULSE 74
[2021-10-26] MEDS: lamoTRIgine 100 MG TABLET 200 MG PO ×2 (10:31→21:35)
[2021-10-26] MEDS: Vortioxetine Hydrobromide 10 MG TABLET PO (10:31)
[2021-10-26] MEDS: Pramipexole Di-HCL 0.125 MG TABLET PO ×3 (10:31→21:36)
[2021-10-26] MEDS: lisinopriL 40 MG TABLET PO (10:31)
[2021-10-26] MEDS: Gabapentin 400 MG CAPSULE PO ×3 (10:31→21:35)
[2021-10-26] MEDS: LORazepam 0.5 MG TABLET PO (15:42)
[2021-10-26 18:00] VITALS: BP 145/78; PULSE 76; RESP 16; TEMP 37.2; O2SAT 98
[2021-10-26] MEDS: polyethylene glycoL 3350 17 GM POWD.PACK PO (19:56)
[2021-10-26] MEDS: Latanoprost 0.005 % Ophth Sol 2.5 ML DROPS 1 DROP EYE-BOTH (21:19)
[2021-10-26] MEDS: traZODone HCL 100 MG TABLET 300 MG PO (21:36)
[2021-10-26] MEDS: Melatonin 3 MG TABLET 6 MG PO (21:37)
[2021-10-26] MEDS: Hydrocortisone 1 % Cream 28.35 GM TUBE 1 APPL TOPICAL (21:38)
[2021-10-26] MEDS: Mirtazapine 15 MG TABLET PO (21:38)
[2021-10-27] MEDS: LORazepam 0.5 MG TABLET PO (05:40)
[2021-10-27] MEDS: Ibuprofen 400 MG TABLET PO ×2 (05:42→21:12)
[2021-10-27 06:00] VITALS: BP 130/71; PULSE 72; RESP 18; TEMP 37; O2SAT 95
--- NOTE | 2021-10-27 10:16 | HO.PSYCHPN ---
Subjective Subjective Date of Service: 10/27/21 Reason For Visit: MDD SI Subjective Notes: Conditional Voluntary Interim History: Pt continues to report feeling hopeless, had episode of tearfulness, reporting passive SI no plan or intent. He reports sleep is fair. He reports heartburn, agreed to start pepcid 20mg po BID. Hopes ECT helpful for mood. Medication Compliance: Yes Side effects from medications: No Review of Systems Review of Systems unremarkable Yes all other systems are reviewed and are negative Constitutional: Reports no additional constitutional complaints, Denies chills and Denies fever(s) Denies vertigo and Denies dizziness Cardiovascular: Reports no additional cardiovascular complaints and Denies chest pain Respiratory: Reports no additional respiratory complaints and Denies cough Gastrointestinal: Denies abdominal pain Denies vertigo and Denies dizziness Psychiatric: Reports anxiety, Reports depression and Reports hopelessness Mental Status Exam Mental Status Exam Narrative: Wheelchair, appropriately dressed and hygiene. Depressed. SI in context of hopelessness and discharge feeling in a black hole and a fog . More active SI difficulty keeping things in perspective understanding that there is a process HI. No psychosis or agitation. Insight and judgment fair. Diagnostics Vital Signs (24Hr): Vital Signs - 24 hr 10/27/21 06:00 10/27/21 10:39 10/27/21 18:00 Temperature 98.6 F 97.4 F Pulse Rate 72 72 71 Respiratory Rate 18 20 Blood Pressure 130/71 130/71 175/85 H Pulse Oximetry 95 96 BMI result Body Mass Index 30.2 Labs Results: 10/01/21 19:18 10/01/21 19:18 Medications Medications Current Medications Acetaminophen (Acetaminophen 325 Mg Tablet) 650 mg PO Q6H PRN PRN Reason: Pain (Scale Score 1-3) Last Admin: 10/25/21 08:40 Dose: 650 mg Documented by: Al Hydroxide/Mg Hydroxide (Magnesium Hydrox/Alum Hydrox 30 Ml Oral.Susp) 30 ml PO Q6H PRN PRN Reason: Heartburn/Nausea Albuterol Sulfate (Albuterol Sulfate 90 Mcg 8 Gm Inhaler) 2 puff INHALE Q6H PRN PRN Reason: Shortness Of Breath Last Admin: 10/25/21 20:52 Dose: 2 puff Documented by: Amlodipine Besylate (Amlodipine Besylate 10 Mg Tablet) 10 mg PO DAILY [facility]; Protocol Last Admin: 10/27/21 10:39 Dose: 10 mg Documented by: Artificial Tears (Artificial Tears 15 Ml Drops) 1 drop EYE-BOTH Q1H PRN PRN Reason: Dry Eye(S) Last Admin: 10/12/21 14:13 Dose: 1 drop Documented by: Docusate Sodium (Docusate Sodium 100 Mg Capsule) 100 mg PO BEDTIME PRN PRN Reason: Constipation Last Admin: 10/19/21 20:41 Dose: 100 mg Documented by: Docusate Sodium (Docusate Sodium 100 Mg Capsule) 100 mg PO BID PRN PRN Reason: Constipation Last Admin: 10/19/21 09:38 Dose: 100 mg Documented by: Famotidine (Famotidine 20 Mg Tablet) 20 mg PO BID@0700,1730 [facility] Last Admin: 10/27/21 18:14 Dose: 20 mg Documented by: Finasteride (Finasteride 5 Mg Tablet) 5 mg PO DAILY [facility] Last Admin: 10/27/21 10:40 Dose: 5 mg Documented by: Gabapentin (Gabapentin 400 Mg Capsule) 400 mg PO TID [facility] Last Admin: 10/27/21 15:45 Dose: 400 mg Documented by: Hydrocortisone (Hydrocortisone 1 % Cream 28.35 Gm Tube) 1 appl TOPICAL Q4H PRN; Protocol PRN Reason: RECTAL IRRITATION Last Admin: 10/26/21 21:38 Dose: 1 appl Documented by: Hydroxyzine HCl (Hydroxyzine Hcl 25 Mg Tablet) 25 mg PO BEDTIME PRN PRN Reason: Anxiety Last Admin: 10/20/21 20:35 Dose: 25 mg Documented by: Ibuprofen (Ibuprofen 400 Mg Tablet) 400 mg PO Q6H PRN PRN Reason: Pain, Moderate (Pain Scale 4-6 Last Admin: 10/27/21 05:42 Dose: 400 mg Documented by: Lamotrigine (Lamotrigine 100 Mg Tablet) 200 mg PO BID [facility] Last Admin: 10/27/21 10:37 Dose: 200 mg Documented by: Latanoprost (Latanoprost 0.005 % Ophth No 2.5 Ml Drops) 1 drop EYE-BOTH BEDTIME [facility] Last Admin: 10/26/21 21:19 Dose: 1 drop Documented by: Lidocaine (Lidocaine 4 % Patch Adh..Patch) 1 patch TRANSDERMA DAILY [facility]; Protocol Last Admin: 10/27/21 10:40 Dose: Not Given Documented by: Lisinopril (Lisinopril 40 Mg Tablet) 40 mg PO DAILY [facility]; Protocol Last Admin: 10/27/21 10:39 Dose: 40 mg Documented by: Lorazepam (Lorazepam 1 Mg Tablet) 1 mg PO BEDTIME [facility] Last Admin: 10/26/21 21:34 Dose: 1 mg Documented by: Lorazepam (Lorazepam 0.5 Mg Tablet) 0.5 mg PO QID PRN PRN Reason: Anxiety Last Admin: 10/27/21 05:40 Dose: 0.5 mg Documented by: Magnesium Hydroxide (Milk Of Magnesia 30 Ml Oral.Susp) 30 ml PO DAILY PRN PRN Reason: Constipation Last Admin: 10/11/21 15:55 Dose: 30 ml Documented by: Magnesium Hydroxide (Milk Of Magnesia 30 Ml Oral.Susp) 30 ml PO Q72H PRN PRN Reason: Constipation Melatonin (Melatonin 3 Mg Tablet) 6 mg PO BEDTIME [facility] Last Admin: 10/26/21 21:37 Dose: 6 mg Documented by: Miconazole Nitrate (Miconazole 2 % Extra Thick Cr 56.7 Gm Tube) 1 appl TOPICAL BID [facility]; Protocol Last Admin: 10/27/21 10:41 Dose: Not Given Documented by: Mirtazapine (Mirtazapine 15 Mg Tablet) 15 mg PO BEDTIME [facility] Last Admin: 10/26/21 21:38 Dose: 15 mg Documented by: Multivitamins/Vitamin C (Multivitamin Tablet) 1 tab PO DAILY [facility] Last Admin: 10/27/21 10:39 Dose: 1 tab Documented by: Pharmacy Consult (Consult Rx Other Drug Dosing) 1 each MISCELLANE DAILY PRN PRN Reason: Consult order Polyethylene Glycol (Polyethylene Glycol 3350 17 Gm Powd.Pack) 17 gm PO DAILY PRN PRN Reason: Constipation Last Admin: 10/05/21 15:53 Dose: 17 gm Documented by: Polyethylene Glycol (Polyethylene Glycol 3350 17 Gm Powd.Pack) 17 gm PO DAILY@1600 [facility] Last Admin: 10/26/21 19:56 Dose: 17 gm Documented by: Pramipexole Dihydrochloride (Pramipexole Di-Hcl 0.125 Mg Tablet) 0.125 mg PO TID [facility] Last Admin: 10/27/21 15:45 Dose: 0.125 mg Documented by: Quetiapine Fumarate (Quetiapine Fumarate 25 Mg Tablet) 25 mg PO BID PRN PRN Reason: Anxiety Last Admin: 10/20/21 04:39 Dose: 25 mg Documented by: Trazodone HCl (Trazodone Hcl 50 Mg Tablet) 50 mg PO BEDTIME PRN PRN Reason: Insomnia Last Admin: 10/01/21 23:41 Dose: 50 mg Documented by: Trazodone HCl (Trazodone Hcl 100 Mg Tablet) 300 mg PO BEDTIME [facility] Last Admin: 10/26/21 21:36 Dose: 300 mg Documented by: Vortioxetine (Vortioxetine Hydrobromide 10 Mg Tablet) 10 mg PO DAILY [facility] Last Admin: 10/27/21 10:39 Dose: 10 mg Documented by: Allergies Allergies Allergy/AdvReac Type Severity Reaction Status Date / Time fentanyl [FENTANYL] Allergy Intermediate unknown Verified 05/22/21 11:43 Assessment & Plan Assessment & Plan (1) Depression: Status: Acute Code(s): F32.A - Depression, unspecified Assessment and Plan: The patient is an elderly male with a long history of major depressive disorder and TBI, admitted before, very well known by the service.? He has been admitted for exacerbation of depression with suicidal ideation without a clear stressor.? Historically, the patient responds to ECT. Plan: Patient seems improved Continue 10 mg trintellix mirtazapine Lamictal gabapentin discharge planning referral for physical therapy outpatient schedule ECT outpatient in 2 weeks discharge planning referral to adult day health 10/21/21: Endorsing SI, hoplessness and depression. Will discus with team 10/21 ref mental state +/- modifying treatment/dispo planning. Discharge on hold consider ECT would clearly benefit from outpatient therapy which has been hard to arrange patient not to logical would benefit best from and person treatment. 10/22/2021 Patient continues depressed intermittently hopeless helpless despondent. May do better with intermittent ECT than 3 times a week consider dopamine agonist 10/24/21 evaluate ect 10/26: pt reports feeling very hopeless/helpless, passive SI, denies plan or intent. anxious mood, reports ativan helpful. Looking forward to have ECT on Thursday. no medication changes. 10/27: continues to present as very hopeless/helpless, passive SI, no plan or intent. pt reports heartburn, added pepcid 20mg po BID. (2) HTN (hypertension): Status: Acute Code(s): I10 - Essential (primary) hypertension Assessment and Plan: cont tx plan Assessment and Plan: will continue ect taper remeron I spent minutes with the patient and/or on the patient floor today, greater than?50% of which was spent counseling/coordinating care. Reason for contiued inpatient stay Substantial Risk for: inability to function
[2021-10-27] MEDS: lamoTRIgine 100 MG TABLET 200 MG PO (10:37)
[2021-10-27] MEDS: Gabapentin 400 MG CAPSULE PO ×2 (10:38→15:45)
[2021-10-27 10:39] VITALS: BP 130/71; PULSE 72
[2021-10-27] MEDS: Multivitamin TABLET 1 TAB PO (10:39)
[2021-10-27] MEDS: amLODIPine Besylate 10 MG TABLET PO (10:39)
[2021-10-27] MEDS: lisinopriL 40 MG TABLET PO (10:39)
[2021-10-27] MEDS: Vortioxetine Hydrobromide 10 MG TABLET PO (10:39)
[2021-10-27] MEDS: Finasteride 5 MG TABLET PO (10:40)
[2021-10-27] MEDS: Pramipexole Di-HCL 0.125 MG TABLET PO ×3 (10:40→21:12)
[2021-10-27] MEDS: Famotidine 20 MG TABLET PO ×2 (11:07→18:14)
[2021-10-27 18:00] VITALS: BP 175/85; PULSE 71; RESP 20; TEMP 36.3; O2SAT 96
[2021-10-27] MEDS: Albuterol Sulfate 90 MCG 8 GM INHALER 2 PUFF INHALE (21:11)
[2021-10-27] MEDS: traZODone HCL 100 MG TABLET 300 MG PO (21:12)
[2021-10-27] MEDS: Melatonin 3 MG TABLET 6 MG PO (21:12)
[2021-10-27] MEDS: Latanoprost 0.005 % Ophth Sol 2.5 ML DROPS 1 DROP EYE-BOTH (21:13)
[2021-10-27] MEDS: Mirtazapine 15 MG TABLET PO (21:13)
--- NOTE | 2021-10-27 23:03 | PC.NURSE ---
due to possible confusion on date of ativan administration, charted ativan 1 mg given 2133 on 10-26-21 was undone. pt was not given ativan 1 mg po on 10-27-21. pharmacy and nursing cargo service supervisor notified of situation.
[2021-10-28 04:54] VITALS: BP 157/76; PULSE 64
[2021-10-28] MEDS: lisinopriL 40 MG TABLET PO (04:54)
[2021-10-28 04:55] VITALS: BP 157/76; PULSE 64
[2021-10-28] MEDS: amLODIPine Besylate 10 MG TABLET PO (04:55)
[2021-10-28 04:58] VITALS: BP 157/76; PULSE 64; RESP 18; TEMP 36.6; O2SAT 96
[2021-10-28] MEDS: Acetaminophen 325 MG TABLET 650 MG PO (06:42)
[2021-10-28 09:32] VITALS: BP 154/79; PULSE 78; TEMP 36.4; O2SAT 93
[2021-10-28] MEDS: Pramipexole Di-HCL 0.125 MG TABLET PO ×3 (09:35→21:06)
[2021-10-28] MEDS: Finasteride 5 MG TABLET PO (09:36)
[2021-10-28] MEDS: lamoTRIgine 100 MG TABLET 200 MG PO ×2 (09:36→21:05)
[2021-10-28] MEDS: Vortioxetine Hydrobromide 10 MG TABLET PO (09:36)
[2021-10-28] MEDS: Multivitamin TABLET 1 TAB PO (09:36)
[2021-10-28] MEDS: Gabapentin 400 MG CAPSULE PO ×3 (09:38→21:05)
[2021-10-28] MEDS: Ibuprofen 400 MG TABLET PO ×2 (09:45→21:14)
[2021-10-28] MEDS: Famotidine 20 MG TABLET PO ×2 (09:47→18:26)
[2021-10-28] MEDS: LORazepam 0.5 MG TABLET PO (15:26)
[2021-10-28] MEDS: polyethylene glycoL 3350 17 GM POWD.PACK PO (17:12)
[2021-10-28] MEDS: Nortriptyline HCl 10 MG CAPSULE PO (21:06)
[2021-10-28] MEDS: Melatonin 3 MG TABLET 6 MG PO (21:06)
[2021-10-28] MEDS: Latanoprost 0.005 % Ophth Sol 2.5 ML DROPS 1 DROP EYE-BOTH (21:06)
[2021-10-28] MEDS: LORazepam 1 MG TABLET PO (21:06)
[2021-10-28] MEDS: Mirtazapine 15 MG TABLET PO (21:06)
[2021-10-28] MEDS: traZODone HCL 100 MG TABLET 300 MG PO (21:07)
[2021-10-28 21:23] VITALS: BP 127/72; PULSE 66; RESP 18; TEMP 36.4; O2SAT 97
--- NOTE | 2021-10-28 22:28 | P.PNPSI_ITS ---
Subjective Subjective Date of Service: 10/28/21 Reason For Visit: MDD SI Subjective Notes: Conditional Voluntary Healthcare Proxy: No Guardianship: No Interim History: pt depressed hopeless helpless \was tearful agitated over w/e Medication Compliance: Yes Attending Groups: Intermittent Review of Systems Acute medical concerns: No Medical Review of Systems: unchanged Mental Status Exam Mental Status Exam Narrative: Wheelchair, appropriately dressed and hygiene. Depressed. SI in context of hopelessness and discharge feeling in a black hole and a fog . More active SI difficulty keeping things in perspective understanding that there is a process HI. No psychosis or agitation. Insight and judgment fair. Did have some response to motivational interviewing Diagnostics Vital Signs (24Hr): Vital Signs - 24 hr 10/28/21 04:54 10/28/21 04:55 10/28/21 04:58 Temperature 97.8 F Pulse Rate 64 64 64 Respiratory Rate 18 Blood Pressure 157/76 H 157/76 H 157/76 H Pulse Oximetry 96 10/28/21 09:32 10/28/21 21:23 Temperature 97.5 F 97.5 F Pulse Rate 78 66 Respiratory Rate 18 Blood Pressure 154/79 H 127/72 Pulse Oximetry 93 97 BMI result Body Mass Index 30.2 Labs Results: 10/01/21 19:18 10/01/21 19:18 Medications Medications Current Medications Acetaminophen (Acetaminophen 325 Mg Tablet) 650 mg PO Q6H PRN PRN Reason: Pain (Scale Score 1-3) Last Admin: 10/28/21 06:42 Dose: 650 mg Documented by: Al Hydroxide/Mg Hydroxide (Magnesium Hydrox/Alum Hydrox 30 Ml Oral.Susp) 30 ml PO Q6H PRN PRN Reason: Heartburn/Nausea Albuterol Sulfate (Albuterol Sulfate 90 Mcg 8 Gm Inhaler) 2 puff INHALE Q6H PRN PRN Reason: Shortness Of Breath Last Admin: 10/27/21 21:11 Dose: 2 puff Documented by: Amlodipine Besylate (Amlodipine Besylate 10 Mg Tablet) 10 mg PO DAILY [facility]; Protocol Last Admin: 10/28/21 04:55 Dose: 10 mg Documented by: Artificial Tears (Artificial Tears 15 Ml Drops) 1 drop EYE-BOTH Q1H PRN PRN Reason: Dry Eye(S) Last Admin: 10/12/21 14:13 Dose: 1 drop Documented by: Docusate Sodium (Docusate Sodium 100 Mg Capsule) 100 mg PO BEDTIME PRN PRN Reason: Constipation Last Admin: 10/19/21 20:41 Dose: 100 mg Documented by: Docusate Sodium (Docusate Sodium 100 Mg Capsule) 100 mg PO BID PRN PRN Reason: Constipation Last Admin: 10/19/21 09:38 Dose: 100 mg Documented by: Famotidine (Famotidine 20 Mg Tablet) 20 mg PO BID@0700,1730 [facility] Last Admin: 10/28/21 18:26 Dose: 20 mg Documented by: Finasteride (Finasteride 5 Mg Tablet) 5 mg PO DAILY [facility] Last Admin: 10/28/21 09:36 Dose: 5 mg Documented by: Gabapentin (Gabapentin 400 Mg Capsule) 400 mg PO TID [facility] Last Admin: 10/28/21 21:05 Dose: 400 mg Documented by: Hydrocortisone (Hydrocortisone 1 % Cream 28.35 Gm Tube) 1 appl TOPICAL Q4H PRN; Protocol PRN Reason: RECTAL IRRITATION Last Admin: 10/26/21 21:38 Dose: 1 appl Documented by: Hydroxyzine HCl (Hydroxyzine Hcl 25 Mg Tablet) 25 mg PO BEDTIME PRN PRN Reason: Anxiety Last Admin: 10/20/21 20:35 Dose: 25 mg Documented by: Ibuprofen (Ibuprofen 400 Mg Tablet) 400 mg PO Q6H PRN PRN Reason: Pain, Moderate (Pain Scale 4-6 Last Admin: 10/28/21 21:14 Dose: 400 mg Documented by: Lamotrigine (Lamotrigine 100 Mg Tablet) 200 mg PO BID [facility] Last Admin: 10/28/21 21:05 Dose: 200 mg Documented by: Latanoprost (Latanoprost 0.005 % Ophth No 2.5 Ml Drops) 1 drop EYE-BOTH BEDT [facility] Last Admin: 10/28/21 21:06 Dose: 1 drop Documented by: Lidocaine (Lidocaine 4 % Patch Adh..Patch) 1 patch TRANSDERMA DAILY [facility]; Protocol Last Admin: 10/28/21 09:37 Dose: Not Given Documented by: Lisinopril (Lisinopril 40 Mg Tablet) 40 mg PO DAILY [facility]; Protocol Last Admin: 10/28/21 04:54 Dose: 40 mg Documented by: Lorazepam (Lorazepam 1 Mg Tablet) 1 mg PO BEDTIME [facility] Last Admin: 10/28/21 21:06 Dose: 1 mg Documented by: Lorazepam (Lorazepam 0.5 Mg Tablet) 0.5 mg PO QID PRN PRN Reason: Anxiety Last Admin: 10/28/21 15:26 Dose: 0.5 mg Documented by: Magnesium Hydroxide (Milk Of Magnesia 30 Ml Oral.Susp) 30 ml PO DAILY PRN PRN Reason: Constipation Last Admin: 10/11/21 15:55 Dose: 30 ml Documented by: Magnesium Hydroxide (Milk Of Magnesia 30 Ml Oral.Susp) 30 ml PO Q72H PRN PRN Reason: Constipation Melatonin (Melatonin 3 Mg Tablet) 6 mg PO BEDTIME [facility] Last Admin: 10/28/21 21:06 Dose: 6 mg Documented by: Miconazole Nitrate (Miconazole 2 % Extra Thick Cr 56.7 Gm Tube) 1 appl TOPICAL BID [facility]; Protocol Last Admin: 10/28/21 22:23 Dose: Not Given Documented by: Multivitamins/Vitamin C (Multivitamin Tablet) 1 tab PO DAILY [facility] Last Admin: 10/28/21 09:36 Dose: 1 tab Documented by: Nortriptyline HCl (Nortriptyline Hcl 10 Mg Capsule) 10 mg PO BEDTIME [facility] Last Admin: 10/28/21 21:06 Dose: 10 mg Documented by: Nortriptyline HCl (Nortriptyline Hcl 10 Mg Capsule) 10 mg PO BEDTIME [facility] Pharmacy Consult (Consult Rx Other Drug Dosing) 1 each MISCELLANE DAILY PRN PRN Reason: Consult order Polyethylene Glycol (Polyethylene Glycol 3350 17 Gm Powd.Pack) 17 gm PO DAILY PRN PRN Reason: Constipation Last Admin: 10/05/21 15:53 Dose: 17 gm Documented by: Polyethylene Glycol (Polyethylene Glycol 3350 17 Gm Powd.Pack) 17 gm PO DAILY@1600 [facility] Last Admin: 10/28/21 17:12 Dose: 17 gm Documented by: Pramipexole Dihydrochloride (Pramipexole Di-Hcl 0.125 Mg Tablet) 0.125 mg PO TID [facility] Last Admin: 10/28/21 21:06 Dose: 0.125 mg Documented by: Quetiapine Fumarate (Quetiapine Fumarate 25 Mg Tablet) 25 mg PO BID PRN PRN Reason: Anxiety Last Admin: 10/20/21 04:39 Dose: 25 mg Documented by: Trazodone HCl (Trazodone Hcl 50 Mg Tablet) 50 mg PO BEDTIME PRN PRN Reason: Insomnia Last Admin: 10/01/21 23:41 Dose: 50 mg Documented by: Trazodone HCl (Trazodone Hcl 100 Mg Tablet) 300 mg PO BEDTIME [facility] Last Admin: 10/28/21 21:07 Dose: 300 mg Documented by: Vortioxetine (Vortioxetine Hydrobromide 10 Mg Tablet) 10 mg PO DAILY [facility] Last Admin: 10/28/21 09:36 Dose: 10 mg Documented by: Allergies Allergies Allergy/AdvReac Type Severity Reaction Status Date / Time fentanyl [FENTANYL] Allergy Intermediate unknown Verified 05/22/21 11:43 Assessment & Plan Assessment & Plan (1) Depression: Status: Acute Code(s): F32.A - Depression, unspecified Assessment and Plan: The patient is an elderly male with a long history of major depressive disorder and TBI, admitted before, very well known by the service.? He has been admitted for exacerbation of depression with suicidal ideation without a clear stressor.? Historically, the patient responds to ECT. 10/21/21: Endorsing SI, hoplessness and depression. Will discus with team 10/21 ref mental state +/- modifying treatment/dispo planning. Discharge on hold consider ECT would clearly benefit from outpatient therapy which has been hard to arrange patient not to logical would benefit best from and person treatment. 10/22/2021 Patient continues depressed intermittently hopeless helpless despondent. May do better with intermittent ECT than 3 times a week consider dopamine agonist 10/24/21 evaluate ect 10/26: pt reports feeling very hopeless/helpless, passive SI, denies plan or intent. anxious mood, reports ativan helpful. Looking forward to have ECT on Thursday. no medication changes. 10/27: continues to present as very hopeless/helpless, passive SI, no plan or intent. pt reports heartburn, added pepcid 20mg po BID. stop remeron start nortriptyline mirapex (2) HTN (hypertension): Status: Acute Code(s): I10 - Essential (primary) hypertension Assessment and Plan: cont tx plan Assessment and Plan: . Mirtazapine not helpful start nortriptyline 10 mg at bedtime re-evaluate effectiveness ECT may be causing destabilization I spent minutes with the patient and/or on the patient floor today, greater than?50% of which was spent counseling/coordinating care. Reason for contiued inpatient stay Substantial Risk for: harm to self, rapid decompensation and med/psych decompensation
[2021-10-29] MEDS: QUEtiapine Fumarate 25 MG TABLET PO ×3 (01:49→22:10)
[2021-10-29 06:00] VITALS: BP 146/78; PULSE 76; RESP 14; TEMP 36.4; O2SAT 94
[2021-10-29] MEDS: Ibuprofen 400 MG TABLET PO (06:06)
[2021-10-29] MEDS: Famotidine 20 MG TABLET PO ×2 (06:07→17:58)
[2021-10-29 08:02] VITALS: BP 146/78; PULSE 68
[2021-10-29] MEDS: amLODIPine Besylate 10 MG TABLET PO (08:02)
[2021-10-29] MEDS: Gabapentin 400 MG CAPSULE PO ×3 (08:03→21:20)
[2021-10-29] MEDS: lamoTRIgine 100 MG TABLET 200 MG PO ×2 (08:03→21:19)
[2021-10-29] MEDS: Vortioxetine Hydrobromide 10 MG TABLET PO (08:04)
[2021-10-29] MEDS: Pramipexole Di-HCL 0.125 MG TABLET PO ×3 (08:04→21:19)
[2021-10-29 08:05] VITALS: BP 146/78; PULSE 68
[2021-10-29] MEDS: lisinopriL 40 MG TABLET PO (08:05)
[2021-10-29] MEDS: Miconazole 2 % Extra Thick Cr 56.7 Gm Tube 1 APPL TOPICAL (08:30)
[2021-10-29] MEDS: Finasteride 5 MG TABLET PO (08:31)
[2021-10-29] MEDS: Multivitamin TABLET 1 TAB PO (10:18)
--- NOTE | 2021-10-29 15:41 | P.PNPSI_ITS ---
Subjective Subjective Date of Service: 10/29/21 Reason For Visit: MDD SI Subjective Notes: Conditional Voluntary Healthcare Proxy: Yes ( NOT ACTIVATEDOT ACTIVATED) Interim History: Patient had good meeting with agency that may help him transi tion out of the intermediate. Patient then became anxious and ruminating Medication Compliance: Yes Attending Groups: Yes Mental Status Exam Mental Status Exam Patient Appearance: Well Grooomed Patient Orientation: Person, Place, Time and Situation Level of Consciousness: Awake Patient Behavior: Appropriate Mood Description: Sad and Apprehensive Affect Description: Depressed, Anxious and Apprehensive Ability to Follow Directions: Good Hallucinations: None Delusions: Not Present Thought Content: positive for Perseveration, positive for Preoccupation and positive for Suicidal Ideation (Hopeless helpless passive SI) Depressive Symptoms: Increased Anxiety, Feelings of Worthlessness, Hopelessness, Unhappiness and Thoughts of /Suicide Judgement: Fair Diagnostics Vital Signs (24Hr): Vital Signs - 24 hr 10/28/21 21:23 10/29/21 06:00 10/29/21 08:02 Temperature 97.5 F 97.6 F Pulse Rate 66 76 68 Respiratory Rate 18 14 Blood Pressure 127/72 146/78 H 146/78 H Pulse Oximetry 97 94 10/29/21 08:05 Temperature Pulse Rate 68 Respiratory Rate Blood Pressure 146/78 H Pulse Oximetry BMI result Body Mass Index 30.2 Labs Results: 10/01/21 19:18 10/01/21 19:18 Medications Medications Current Medications Acetaminophen (Acetaminophen 325 Mg Tablet) 650 mg PO Q6H PRN PRN Reason: Pain (Scale Score 1-3) Last Admin: 10/28/21 06:42 Dose: 650 mg Documented by: Al Hydroxide/Mg Hydroxide (Magnesium Hydrox/Alum Hydrox 30 Ml Oral.Susp) 30 ml PO Q6H PRN PRN Reason: Heartburn/Nausea Albuterol Sulfate (Albuterol Sulfate 90 Mcg 8 Gm Inhaler) 2 puff INHALE Q6H PRN PRN Reason: Shortness Of Breath Last Admin: 10/27/21 21:11 Dose: 2 puff Documented by: Amlodipine Besylate (Amlodipine Besylate 10 Mg Tablet) 10 mg PO DAILY [facility]; Protocol Last Admin: 10/29/21 08:02 Dose: 10 mg Documented by: Artificial Tears (Artificial Tears 15 Ml Drops) 1 drop EYE-BOTH Q1H PRN PRN Reason: Dry Eye(S) Last Admin: 10/12/21 14:13 Dose: 1 drop Documented by: Docusate Sodium (Docusate Sodium 100 Mg Capsule) 100 mg PO BEDTIME PRN PRN Reason: Constipation Last Admin: 10/19/21 20:41 Dose: 100 mg Documented by: Docusate Sodium (Docusate Sodium 100 Mg Capsule) 100 mg PO BID PRN PRN Reason: Constipation Last Admin: 10/19/21 09:38 Dose: 100 mg Documented by: Famotidine (Famotidine 20 Mg Tablet) 20 mg PO BID@0700,1730 [facility] Last Admin: 10/29/21 06:07 Dose: 20 mg Documented by: Finasteride (Finasteride 5 Mg Tablet) 5 mg PO DAILY [facility] Last Admin: 10/29/21 08:31 Dose: 5 mg Documented by: Gabapentin (Gabapentin 400 Mg Capsule) 400 mg PO TID [facility] Last Admin: 10/29/21 08:03 Dose: 400 mg Documented by: Hydrocortisone (Hydrocortisone 1 % Cream 28.35 Gm Tube) 1 appl TOPICAL Q4H PRN; Protocol PRN Reason: RECTAL IRRITATION Last Admin: 10/26/21 21:38 Dose: 1 appl Documented by: Hydroxyzine HCl (Hydroxyzine Hcl 25 Mg Tablet) 25 mg PO BEDTIME PRN PRN Reason: Anxiety Last Admin: 10/20/21 20:35 Dose: 25 mg Documented by: Ibuprofen (Ibuprofen 400 Mg Tablet) 400 mg PO Q6H PRN PRN Reason: Pain, Moderate (Pain Scale 4-6 Last Admin: 10/29/21 06:06 Dose: 400 mg Documented by: Lamotrigine (Lamotrigine 100 Mg Tablet) 200 mg PO BID [facility] Last Admin: 10/29/21 08:03 Dose: 200 mg Documented by: Latanoprost (Latanoprost 0.005 % Ophth No 2.5 Ml Drops) 1 drop EYE-BOTH BEDTIME [facility] Last Admin: 10/28/21 21:06 Dose: 1 drop Documented by: Lidocaine (Lidocaine 4 % Patch Adh..Patch) 1 patch TRANSDERMA DAILY [facility]; Protocol Last Admin: 10/29/21 08:06 Dose: Not Given Documented by: Lisinopril (Lisinopril 40 Mg Tablet) 40 mg PO DAILY [facility]; Protocol Last Admin: 10/29/21 08:05 Dose: 40 mg Documented by: Lorazepam (Lorazepam 1 Mg Tablet) 1 mg PO BEDTIME [facility] Last Admin: 10/28/21 21:06 Dose: 1 mg Documented by: Lorazepam (Lorazepam 0.5 Mg Tablet) 0.5 mg PO QID PRN PRN Reason: Anxiety Last Admin: 10/28/21 15:26 Dose: 0.5 mg Documented by: Magnesium Hydroxide (Milk Of Magnesia 30 Ml Oral.Susp) 30 ml PO DAILY PRN PRN Reason: Constipation Last Admin: 10/11/21 15:55 Dose: 30 ml Documented by: Magnesium Hydroxide (Milk Of Magnesia 30 Ml Oral.Susp) 30 ml PO Q72H PRN PRN Reason: Constipation Melatonin (Melatonin 3 Mg Tablet) 6 mg PO BEDTIME [facility] Last Admin: 10/28/21 21:06 Dose: 6 mg Documented by: Miconazole Nitrate (Miconazole 2 % Extra Thick Cr 56.7 Gm Tube) 1 appl TOPICAL BID [facility]; Protocol Last Admin: 10/29/21 08:30 Dose: 1 appl Documented by: Multivitamins/Vitamin C (Multivitamin Tablet) 1 tab PO DAILY [facility] Last Admin: 10/29/21 10:18 Dose: 1 tab Documented by: Nortriptyline HCl (Nortriptyline Hcl 10 Mg Capsule) 10 mg PO BEDTIME [facility] Last Admin: 10/28/21 21:06 Dose: 10 mg Documented by: Nortriptyline HCl (Nortriptyline Hcl 10 Mg Capsule) 10 mg PO BEDTIME [facility] Pharmacy Consult (Consult Rx Other Drug Dosing) 1 each MISCELLANE DAILY PRN PRN Reason: Consult order Polyethylene Glycol (Polyethylene Glycol 3350 17 Gm Powd.Pack) 17 gm PO DAILY PRN PRN Reason: Constipation Last Admin: 10/05/21 15:53 Dose: 17 gm Documented by: Polyethylene Glycol (Polyethylene Glycol 3350 17 Gm Powd.Pack) 17 gm PO DAILY@1600 [facility] Last Admin: 10/28/21 17:12 Dose: 17 gm Documented by: Pramipexole Dihydrochloride (Pramipexole Di-Hcl 0.125 Mg Tablet) 0.125 mg PO TID [facility] Last Admin: 10/29/21 08:04 Dose: 0.125 mg Documented by: Quetiapine Fumarate (Quetiapine Fumarate 25 Mg Tablet) 25 mg PO BID PRN PRN Reason: Anxiety Last Admin: 10/29/21 01:49 Dose: 25 mg Documented by: Quetiapine Fumarate (Quetiapine Fumarate 25 Mg Tablet) 25 mg PO BEDTIME [facility] Quetiapine Fumarate (Quetiapine Fumarate 25 Mg Tablet) 75 mg PO BEDTIME [facility] Quetiapine Fumarate (Quetiapine Fumarate 25 Mg Tablet) 12.5 mg PO BID@0830,1330 [facility] Trazodone HCl (Trazodone Hcl 50 Mg Tablet) 50 mg PO BEDTIME PRN PRN Reason: Insomnia Last Admin: 10/01/21 23:41 Dose: 50 mg Documented by: Trazodone HCl (Trazodone Hcl 100 Mg Tablet) 300 mg PO BEDTIME [facility] Last Admin: 10/28/21 21:07 Dose: 300 mg Documented by: Vortioxetine (Vortioxetine Hydrobromide 10 Mg Tablet) 10 mg PO DAILY [facility] Last Admin: 10/29/21 08:04 Dose: 10 mg Documented by: Allergies Allergies Allergy/AdvReac Type Severity Reaction Status Date / Time fentanyl [FENTANYL] Allergy Intermediate unknown Verified 05/22/21 11:43 Assessment & Plan Assessment & Plan (1) Depression: Status: Acute Code(s): F32.A - Depression, unspecified Assessment and Plan: The patient is an elderly male with a long history of major depressive disorder and TBI, admitted before, very well known by the service.? He has been admitted for exacerbation of depression with suicidal ideation without a clear stressor.? Historically, the patient responds to ECT. 10/21/21: Endorsing SI, hoplessness and depression. Will discus with team 10/21 ref mental state +/- modifying treatment/dispo planning. Discharge on hold consider ECT would clearly benefit from outpatient therapy which has been hard to arrange patient not to logical would benefit best from and person treatment. 10/22/2021 Patient continues depressed intermittently hopeless helpless despondent. May do better with intermittent ECT than 3 times a week consider dopamine agonist 10/24/21 evaluate ect 10/26: pt reports feeling very hopeless/helpless, passive SI, denies plan or intent. anxious mood, reports ativan helpful. Looking forward to have ECT on Thursday. no medication changes. 10/27: continues to present as very hopeless/helpless, passive SI, no plan or i ntent. pt reports heartburn, added pepcid 20mg po BID. stop remeron start nortriptyline mirapex patient quite anxious ruminating given education regarding CBT Continue Seroquel (2) HTN (hypertension): Status: Acute Code(s): I10 - Essential (primary) hypertension Assessment and Plan: cont tx plan Assessment and Plan: . Mirtazapine not helpful start nortriptyline 10 mg at bedtime re-evaluate effectiveness ECT may be causing destabilization I spent minutes with the patient and/or on the patient floor today, greater than?50% of which was spent counseling/coordinating care. Reason for contiued inpatient stay Substantial Risk for: harm to self, rapid decompensation and med/psych decompensation
[2021-10-29] MEDS: QUEtiapine Fumarate 25 MG TABLET 12.5 MG PO (15:52)
[2021-10-29] MEDS: polyethylene glycoL 3350 17 GM POWD.PACK PO (15:53)
[2021-10-29 21:08] VITALS: BP 138/76; PULSE 67; RESP 20; TEMP 36.5; O2SAT 97
[2021-10-29] MEDS: Latanoprost 0.005 % Ophth Sol 2.5 ML DROPS 1 DROP EYE-BOTH (21:19)
[2021-10-29] MEDS: Melatonin 3 MG TABLET 6 MG PO (21:20)
[2021-10-29] MEDS: Nortriptyline HCl 10 MG CAPSULE PO (21:20)
[2021-10-29] MEDS: traZODone HCL 100 MG TABLET 300 MG PO (21:20)
[2021-10-29] MEDS: LORazepam 1 MG TABLET PO (21:20)
[2021-10-30] MEDS: Famotidine 20 MG TABLET PO ×2 (05:52→17:38)
[2021-10-30] MEDS: Acetaminophen 325 MG TABLET 650 MG PO ×2 (05:52→20:44)
[2021-10-30] MEDS: Pramipexole Di-HCL 0.125 MG TABLET PO ×3 (08:04→20:47)
[2021-10-30] MEDS: Gabapentin 400 MG CAPSULE PO ×3 (08:04→20:48)
[2021-10-30] MEDS: Finasteride 5 MG TABLET PO (08:04)
[2021-10-30] MEDS: lamoTRIgine 100 MG TABLET 200 MG PO ×2 (08:04→20:47)
[2021-10-30] MEDS: Multivitamin TABLET 1 TAB PO (08:04)
[2021-10-30] MEDS: QUEtiapine Fumarate 25 MG TABLET 12.5 MG PO ×2 (08:05→13:17)
[2021-10-30] MEDS: Vortioxetine Hydrobromide 10 MG TABLET 20 MG PO (08:07)
[2021-10-30] MEDS: lisinopriL 40 MG TABLET PO (08:07)
[2021-10-30] MEDS: amLODIPine Besylate 10 MG TABLET PO (08:07)
[2021-10-30 08:33] VITALS: BP 133/77; PULSE 73; RESP 20; TEMP 36.2; O2SAT 97
[2021-10-30] MEDS: Lidocaine 4 % Patch ADH..PATCH 1 PATCH TRANSDERMA (10:24)
[2021-10-30] MEDS: QUEtiapine Fumarate 25 MG TABLET PO (15:34)
[2021-10-30] MEDS: polyethylene glycoL 3350 17 GM POWD.PACK PO (15:35)
[2021-10-30 20:23] VITALS: BP 132/75; PULSE 65; RESP 18; TEMP 36.6; O2SAT 97
[2021-10-30] MEDS: Latanoprost 0.005 % Ophth Sol 2.5 ML DROPS 1 DROP EYE-BOTH (20:44)
[2021-10-30] MEDS: Hydrocortisone 1 % Cream 28.35 GM TUBE 1 APPL TOPICAL (20:46)
[2021-10-30] MEDS: traZODone HCL 100 MG TABLET 300 MG PO (20:47)
[2021-10-30] MEDS: Docusate Sodium 100 MG CAPSULE PO (20:47)
[2021-10-30] MEDS: Nortriptyline HCl 10 MG CAPSULE 20 MG PO (20:48)
[2021-10-30] MEDS: QUEtiapine Fumarate 50 MG TABLET PO (20:48)
[2021-10-30] MEDS: Melatonin 3 MG TABLET 6 MG PO (20:49)
[2021-10-30] MEDS: Albuterol Sulfate 90 MCG 8 GM INHALER 2 PUFF INHALE (21:06)
--- NOTE | 2021-10-30 22:07 | P.PNPSI_ITS ---
Subjective Subjective Date of Service: 10/30/21 Reason For Visit: MDD SI Subjective Notes: Conditional Voluntary Healthcare Proxy: Yes Interim History: Patient remains intermittently depressed quite hopeless helpless at times with passive SI other times can response to cognitive behavioral interventions needs a lot help in maintaining any perspective less tremor with the addition of Mirapex Medication Compliance: Yes Side effects from medications: Yes Attending Groups: Intermittent Diagnostics Vital Signs (24Hr): Vital Signs - 24 hr 10/31/21 06:00 10/31/21 08:36 10/31/21 08:37 Temperature 97.2 F Pulse Rate 77 77 77 Respiratory Rate 16 Blood Pressure 146/70 H 146/70 H 146/70 H Pulse Oximetry 91 L 10/31/21 20:20 Temperature 98.3 F Pulse Rate 73 Respiratory Rate 19 Blood Pressure 134/80 Pulse Oximetry 97 BMI result Body Mass Index 32.0 Labs Results: 10/01/21 19:18 10/01/21 19:18 Medications Medications Current Medications Acetaminophen (Acetaminophen 325 Mg Tablet) 650 mg PO Q6H PRN PRN Reason: Pain (Scale Score 1-3) Last Admin: 10/31/21 05:21 Dose: 650 mg Documented by: Al Hydroxide/Mg Hydroxide (Magnesium Hydrox/Alum Hydrox 30 Ml Oral.Susp) 30 ml PO Q6H PRN PRN Reason: Heartburn/Nausea Albuterol Sulfate (Albuterol Sulfate 90 Mcg 8 Gm Inhaler) 2 puff INHALE Q6H PRN PRN Reason: Shortness Of Breath Last Admin: 10/31/21 21:20 Dose: 2 puff Documented by: Amlodipine Besylate (Amlodipine Besylate 10 Mg Tablet) 10 mg PO DAILY TAZ; Protocol Last Admin: 10/31/21 08:36 Dose: 10 mg Documented by: Artificial Tears (Artificial Tears 15 Ml Drops) 1 drop EYE-BOTH Q1H PRN PRN Reason: Dry Eye(S) Last Admin: 10/12/21 14:13 Dose: 1 drop Documented by: Docusate Sodium (Docusate Sodium 100 Mg Capsule) 100 mg PO BEDTIME PRN PRN Reason: Constipation Last Admin: 10/30/21 20:47 Dose: 100 mg Documented by: Docusate Sodium (Docusate Sodium 100 Mg Capsule) 100 mg PO BID PRN PRN Reason: Constipation Last Admin: 10/19/21 09:38 Dose: 100 mg Documented by: Famotidine (Famotidine 20 Mg Tablet) 20 mg PO BID@0700,1730 [facility] Last Admin: 10/31/21 16:31 Dose: 20 mg Documented by: Finasteride (Finasteride 5 Mg Tablet) 5 mg PO DAILY [facility] Last Admin: 10/31/21 08:35 Dose: 5 mg Documented by: Gabapentin (Gabapentin 400 Mg Capsule) 400 mg PO TID [facility] Last Admin: 10/31/21 21:22 Dose: Not Given Documented by: Hydrocortisone (Hydrocortisone 1 % Cream 28.35 Gm Tube) 1 appl TOPICAL Q4H PRN; Protocol PRN Reason: RECTAL IRRITATION Last Admin: 10/31/21 21:06 Dose: 1 appl Documented by: Hydroxyzine HCl (Hydroxyzine Hcl 25 Mg Tablet) 25 mg PO BEDTIME PRN PRN Reason: Anxiety Last Admin: 10/20/21 20:35 Dose: 25 mg Documented by: Ibuprofen (Ibuprofen 400 Mg Tablet) 400 mg PO Q6H PRN PRN Reason: Pain, Moderate (Pain Scale 4-6 Last Admin: 10/29/21 06:06 Dose: 400 mg Documented by: Lamotrigine (Lamotrigine 100 Mg Tablet) 200 mg PO BID [facility] Last Admin: 10/31/21 22:00 Dose: Not Given Documented by: Latanoprost (Latanoprost 0.005 % Ophth No 2.5 Ml Drops) 1 drop EYE-BOTH BEDTIME [facility] Last Admin: 10/31/21 21:02 Dose: 1 drop Documented by: Lidocaine (Lidocaine 4 % Patch Adh..Patch) 1 patch TRANSDERMA DAILY [facility]; Protocol Last Admin: 10/30/21 10:24 Dose: 1 patch Documented by: Lisinopril (Lisinopril 40 Mg Tablet) 40 mg PO DAILY [facility]; Protocol Last Admin: 10/31/21 08:37 Dose: 40 mg Documented by: Lorazepam (Lorazepam 1 Mg Tablet) 1 mg PO BEDTIME [facility] Last Admin: 10/31/21 21:24 Dose: Not Given Documented by: Magnesium Hydroxide (Milk Of Magnesia 30 Ml Oral.Susp) 30 ml PO DAILY PRN PRN Reason: Constipation Last Admin: 10/11/21 15:55 Dose: 30 ml Documented by: Magnesium Hydroxide (Milk Of Magnesia 30 Ml Oral.Susp) 30 ml PO Q72H PRN PRN Reason: Constipation Melatonin (Melatonin 3 Mg Tablet) 6 mg PO BEDTIME [facility] Last Admin: 10/31/21 21:59 Dose: 6 mg Documented by: Miconazole Nitrate (Miconazole 2 % Extra Thick Cr 56.7 Gm Tube) 1 appl TOPICAL BID [facility]; Protocol Last Admin: 10/31/21 21:06 Dose: 1 appl Documented by: Multivitamins/Vitamin C (Multivitamin Tablet) 1 tab PO DAILY [facility] Last Admin: 10/31/21 08:36 Dose: 1 tab Documented by: Nortriptyline HCl (Nortriptyline Hcl 10 Mg Capsule) 20 mg PO BEDTIME [facility] Last Admin: 10/31/21 21:57 Dose: 20 mg Documented by: Pharmacy Consult (Consult Rx Other Drug Dosing) 1 each MISCELLANE DAILY PRN PRN Reason: Consult order Polyethylene Glycol (Polyethylene Glycol 3350 17 Gm Powd.Pack) 17 gm PO DAILY PRN PRN Reason: Constipation Last Admin: 10/05/21 15:53 Dose: 17 gm Documented by: Polyethylene Glycol (Polyethylene Glycol 3350 17 Gm Powd.Pack) 17 gm PO DAILY@1600 [facility] Last Admin: 10/31/21 16:41 Dose: 17 gm Documented by: Pramipexole Dihydrochloride (Pramipexole Di-Hcl 0.25 Mg Tablet) 0.25 mg PO TID [facility] Last Admin: 10/31/21 21:59 Dose: 0.25 mg Documented by: Quetiapine Fumarate (Quetiapine Fumarate 25 Mg Tablet) 25 mg PO BID PRN PRN Reason: Anxiety Last Admin: 10/29/21 01:49 Dose: 25 mg Documented by: Quetiapine Fumarate (Quetiapine Fumarate 50 Mg Tablet) 50 mg PO BEDTIME [facility] Last Admin: 10/31/21 21:59 Dose: 50 mg Documented by: Quetiapine Fumarate (Quetiapine Fumarate 25 Mg Tablet) 25 mg PO BID@0830,1330 [facility] Last Admin: 10/31/21 14:35 Dose: 25 mg Documented by: Trazodone HCl (Trazodone Hcl 50 Mg Tablet) 50 mg PO BEDTIME PRN PRN Reason: Insomnia Last Admin: 10/01/21 23:41 Dose: 50 mg Documented by: Trazodone HCl (Trazodone Hcl 100 Mg Tablet) 300 mg PO BEDTIME [facility] Last Admin: 10/31/21 21:58 Dose: 300 mg Documented by: Vortioxetine (Vortioxetine Hydrobromide 10 Mg Tablet) 20 mg PO DAILY TAZ Last Admin: 10/31/21 08:34 Dose: 20 mg Documented by: Allergies Allergies Allergy/AdvReac Type Severity Reaction Status Date / Time fentanyl [FENTANYL] Allergy Intermediate unknown Verified 05/22/21 11:43 Assessment & Plan Assessment & Plan (1) Depression: Status: Acute Code(s): F32.A - Depression, unspecified Assessment and Plan: The patient is an elderly male with a long history of major depressive disorder and TBI, admitted before, very well known by the service.? He has been admitted for exacerbation of depression with suicidal ideation without a clear stressor.? Historically, the patient responds to ECT. 10/21/21: Endorsing SI, hoplessness and depression. Will discus with team 10/21 ref mental state +/- modifying treatment/dispo planning. Discharge on hold consider ECT would clearly benefit from outpatient therapy which has been hard to arrange patient not to logical would benefit best from and person treatment. 10/22/2021 Patient continues depressed intermittently hopeless helpless despondent. May do better with intermittent ECT than 3 times a week consider dopamine agonist 10/24/21 evaluate ect 10/26: pt reports feeling very hopeless/helpless, passive SI, denies plan or intent. anxious mood, reports ativan helpful. Looking forward to have ECT on Thursday. no medication changes. 10/27: continues to present as very hopeless/helpless, passive SI, no plan or intent. pt reports heartburn, added pepcid 20mg po BID. stop remeron start nortriptyline mirapex patient quite anxious ruminating given education regarding CBT Continue Seroquel 10/30/2021 Change Seroquel to 25 b.i.d. 50 at bedtime increase nortriptyline as tolerated check EKG given cognitive behavioral material to work with remains intermittently overwhelmed with hopelessness requires continued care (2) HTN (hypertension): Status: Acute Code(s): I10 - Essential (primary) hypertension Assessment and Plan: cont tx plan I spent minutes with the patient and/or on the patient floor today, greater than?50% of which was spent counseling/coordinating care. Reason for contiued inpatient stay Substantial Risk for: harm to self and rapid decompensation
[2021-10-31] MEDS: LORazepam 0.5 MG TABLET PO (05:16)
[2021-10-31] MEDS: Famotidine 20 MG TABLET PO ×2 (05:16→16:31)
[2021-10-31] MEDS: Acetaminophen 325 MG TABLET 650 MG PO (05:21)
[2021-10-31 06:00] VITALS: BP 146/70; PULSE 77; RESP 16; TEMP 36.2; O2SAT 91
[2021-10-31 07:00] VITALS: BMI 32.0
[2021-10-31] MEDS: Vortioxetine Hydrobromide 10 MG TABLET 20 MG PO (08:34)
[2021-10-31] MEDS: Pramipexole Di-HCL 0.125 MG TABLET PO (08:35)
[2021-10-31] MEDS: Finasteride 5 MG TABLET PO (08:35)
[2021-10-31] MEDS: lamoTRIgine 100 MG TABLET 200 MG PO (08:35)
[2021-10-31 08:36] VITALS: BP 146/70; PULSE 77
[2021-10-31] MEDS: QUEtiapine Fumarate 25 MG TABLET PO ×2 (08:36→14:35)
[2021-10-31] MEDS: amLODIPine Besylate 10 MG TABLET PO (08:36)
[2021-10-31] MEDS: Multivitamin TABLET 1 TAB PO (08:36)
[2021-10-31 08:37] VITALS: BP 146/70; PULSE 77
[2021-10-31] MEDS: lisinopriL 40 MG TABLET PO (08:37)
[2021-10-31] MEDS: Gabapentin 400 MG CAPSULE PO ×2 (08:38→14:34)
[2021-10-31] MEDS: Pramipexole Di-HCL 0.25 MG TABLET PO ×3 (14:34→21:59)
[2021-10-31] MEDS: polyethylene glycoL 3350 17 GM POWD.PACK PO (16:41)
[2021-10-31 20:20] VITALS: BP 134/80; PULSE 73; RESP 19; TEMP 36.8; O2SAT 97
[2021-10-31] MEDS: Latanoprost 0.005 % Ophth Sol 2.5 ML DROPS 1 DROP EYE-BOTH (21:02)
[2021-10-31] MEDS: traZODone HCL 100 MG TABLET 300 MG PO ×2 (21:03→21:58)
[2021-10-31] MEDS: Melatonin 3 MG TABLET 6 MG PO ×2 (21:03→21:59)
[2021-10-31] MEDS: Miconazole 2 % Extra Thick Cr 56.7 Gm Tube 1 APPL TOPICAL (21:06)
[2021-10-31] MEDS: Hydrocortisone 1 % Cream 28.35 GM TUBE 1 APPL TOPICAL (21:06)
[2021-10-31] MEDS: Albuterol Sulfate 90 MCG 8 GM INHALER 2 PUFF INHALE (21:20)
[2021-10-31] MEDS: Nortriptyline HCl 10 MG CAPSULE 20 MG PO (21:57)
[2021-10-31] MEDS: QUEtiapine Fumarate 50 MG TABLET PO (21:59)
--- NOTE | 2021-10-31 22:19 | P.PNPSI_ITS ---
Subjective Subjective Date of Service: 10/31/21 Reason For Visit: MDD SI Subjective Notes: Conditional Voluntary Healthcare Proxy: Yes Interim History: Patient depressed intermittently hopeless helpless with self- harming thoughts at other times better able to keep things perspective. Seems somewhat less anxious with Seroquel discussed continued ECT at intermittent basis Medication Compliance: Yes Side effects from medications: Yes Mental Status Exam Mental Status Exam Patient Appearance: Well Grooomed Patient Orientation: Person, Place, Time and Situation Level of Consciousness: Awake Patient Behavior: Appropriate Mood Description: Sad and Apprehensive Affect Description: Depressed, Anxious and Apprehensive Ability to Follow Directions: Good Hallucinations: None Delusions: Not Present Thought Content: positive for Perseveration, positive for Preoccupation and positive for Suicidal Ideation (Hopeless helpless passive SI) Depressive Symptoms: Increased Anxiety, Feelings of Worthlessness, Hopelessness, Unhappiness and Thoughts of /Suicide Judgement: Fair Diagnostics Vital Signs (24Hr): Vital Signs - 24 hr 10/31/21 06:00 10/31/21 08:36 10/31/21 08:37 Temperature 97.2 F Pulse Rate 77 77 77 Respiratory Rate 16 Blood Pressure 146/70 H 146/70 H 146/70 H Pulse Oximetry 91 L 10/31/21 20:20 Temperature 98.3 F Pulse Rate 73 Respiratory Rate 19 Blood Pressure 134/80 Pulse Oximetry 97 BMI result Body Mass Index 32.0 Labs Results: 10/01/21 19:18 10/01/21 19:18 Medications Medications Current Medications Acetaminophen (Acetaminophen 325 Mg Tablet) 650 mg PO Q6H PRN PRN Reason: Pain (Scale Score 1-3) Last Admin: 10/31/21 05:21 Dose: 650 mg Documented by: Al Hydroxide/Mg Hydroxide (Magnesium Hydrox/Alum Hydrox 30 Ml Oral.Susp) 30 ml PO Q6H PRN PRN Reason: Heartburn/Nausea Albuterol Sulfate (Albuterol Sulfate 90 Mcg 8 Gm Inhaler) 2 puff INHALE Q6H PRN PRN Reason: Shortness Of Breath Last Admin: 10/31/21 21:20 Dose: 2 puff Documented by: Amlodipine Besylate (Amlodipine Besylate 10 Mg Tablet) 10 mg PO DAILY TAZ; Protocol Last Admin: 10/31/21 08:36 Dose: 10 mg Documented by: Artificial Tears (Artificial Tears 15 Ml Drops) 1 drop EYE-BOTH Q1H PRN PRN Reason: Dry Eye(S) Last Admin: 10/12/21 14:13 Dose: 1 drop Documented by: Docusate Sodium (Docusate Sodium 100 Mg Capsule) 100 mg PO BEDTIME PRN PRN Reason: Constipation Last Admin: 10/30/21 20:47 Dose: 100 mg Documented by: Docusate Sodium (Docusate Sodium 100 Mg Capsule) 100 mg PO BID PRN PRN Reason: Constipation Last Admin: 10/19/21 09:38 Dose: 100 mg Documented by: Famotidine (Famotidine 20 Mg Tablet) 20 mg PO BID@0700,1730 [facility] Last Admin: 10/31/21 16:31 Dose: 20 mg Documented by: Finasteride (Finasteride 5 Mg Tablet) 5 mg PO DAILY [facility] Last Admin: 10/31/21 08:35 Dose: 5 mg Documented by: Gabapentin (Gabapentin 400 Mg Capsule) 400 mg PO TID [facility] Last Admin: 10/31/21 21:22 Dose: Not Given Documented by: Hydrocortisone (Hydrocortisone 1 % Cream 28.35 Gm Tube) 1 appl TOPICAL Q4H PRN; Protocol PRN Reason: RECTAL IRRITATION Last Admin: 10/31/21 21:06 Dose: 1 appl Documented by: Hydroxyzine HCl (Hydroxyzine Hcl 25 Mg Tablet) 25 mg PO BEDTIME PRN PRN Reason: Anxiety Last Admin: 10/20/21 20:35 Dose: 25 mg Documented by: Ibuprofen (Ibuprofen 400 Mg Tablet) 400 mg PO Q6H PRN PRN Reason: Pain, Moderate (Pain Scale 4-6 Last Admin: 10/29/21 06:06 Dose: 400 mg Documented by: Lamotrigine (Lamotrigine 100 Mg Tablet) 200 mg PO BID [facility] Last Admin: 10/31/21 22:00 Dose: Not Given Documented by: Latanoprost (Latanoprost 0.005 % Ophth No 2.5 Ml Drops) 1 drop EYE-BOTH BEDTIME [facility] Last Admin: 10/31/21 21:02 Dose: 1 drop Documented by: Lidocaine (Lidocaine 4 % Patch Adh..Patch) 1 patch TRANSDERMA DAILY [facility]; Protocol Last Admin: 10/30/21 10:24 Dose: 1 patch Documented by: Lisinopril (Lisinopril 40 Mg Tablet) 40 mg PO DAILY [facility]; Protocol Last Admin: 10/31/21 08:37 Dose: 40 mg Documented by: Lorazepam (Lorazepam 1 Mg Tablet) 1 mg PO BEDTIME TAZ Last Admin: 10/31/21 21:24 Dose: Not Given Documented by: Magnesium Hydroxide (Milk Of Magnesia 30 Ml Oral.Susp) 30 ml PO DAILY PRN PRN Reason: Constipation Last Admin: 10/11/21 15:55 Dose: 30 ml Documented by: Magnesium Hydroxide (Milk Of Magnesia 30 Ml Oral.Susp) 30 ml PO Q72H PRN PRN Reason: Constipation Melatonin (Melatonin 3 Mg Tablet) 6 mg PO BEDTIME TAZ Last Admin: 10/31/21 21:59 Dose: 6 mg Documented by: Miconazole Nitrate (Miconazole 2 % Extra Thick Cr 56.7 Gm Tube) 1 appl TOPICAL BID [facility]; Protocol Last Admin: 10/31/21 21:06 Dose: 1 appl Documented by: Multivitamins/Vitamin C (Multivitamin Tablet) 1 tab PO DAILY [facility] Last Admin: 10/31/21 08:36 Dose: 1 tab Documented by: Nortriptyline HCl (Nortriptyline Hcl 10 Mg Capsule) 20 mg PO BEDTIME TAZ Last Admin: 10/31/21 21:57 Dose: 20 mg Documented by: Pharmacy Consult (Consult Rx Other Drug Dosing) 1 each MISCELLANE DAILY PRN PRN Reason: Consult order Polyethylene Glycol (Polyethylene Glycol 3350 17 Gm Powd.Pack) 17 gm PO DAILY PRN PRN Reason: Constipation Last Admin: 10/05/21 15:53 Dose: 17 gm Documented by: Polyethylene Glycol (Polyethylene Glycol 3350 17 Gm Powd.Pack) 17 gm PO DAILY@1600 [facility] Last Admin: 10/31/21 16:41 Dose: 17 gm Documented by: Pramipexole Dihydrochloride (Pramipexole Di-Hcl 0.25 Mg Tablet) 0.25 mg PO TID [facility] Last Admin: 10/31/21 21:59 Dose: 0.25 mg Documented by: Quetiapine Fumarate (Quetiapine Fumarate 25 Mg Tablet) 25 mg PO BID PRN PRN Reason: Anxiety Last Admin: 10/29/21 01:49 Dose: 25 mg Documented by: Quetiapine Fumarate (Quetiapine Fumarate 50 Mg Tablet) 50 mg PO BEDTIME [facility] Last Admin: 10/31/21 21:59 Dose: 50 mg Documented by: Quetiapine Fumarate (Quetiapine Fumarate 25 Mg Tablet) 25 mg PO BID@0830,1330 [facility] Last Admin: 10/31/21 14:35 Dose: 25 mg Documented by: Trazodone HCl (Trazodone Hcl 50 Mg Tablet) 50 mg PO BEDTIME PRN PRN Reason: Insomnia Last Admin: 10/01/21 23:41 Dose: 50 mg Documented by: Trazodone HCl (Trazodone Hcl 100 Mg Tablet) 300 mg PO BEDTIME [facility] Last Admin: 10/31/21 21:58 Dose: 300 mg Documented by: Vortioxetine (Vortioxetine Hydrobromide 10 Mg Tablet) 20 mg PO DAILY [facility] Last Admin: 10/31/21 08:34 Dose: 20 mg Documented by: Allergies Allergies Allergy/AdvReac Type Severity Reaction Status Date / Time fentanyl [FENTANYL] Allergy Intermediate unknown Verified 05/22/21 11:43 Assessment & Plan Assessment & Plan (1) Depression: Status: Acute Code(s): F32.A - Depression, unspecified Assessment and Plan: The patient is an elderly male with a long history of major depressive disorder and TBI, admitted before, very well known by the service.? He has been admitted for exacerbation of depression with suicidal ideation without a clear stressor.? Historically, the patient responds to ECT. 10/21/21: Endorsing SI, hoplessness and depression. Will discus with team 10/21 ref mental state +/- modifying treatment/dispo planning. Discharge on hold consider ECT would clearly benefit from outpatient therapy which has been hard to arrange patient not to logical would benefit best from and person treatment. 10/22/2021 Patient continues depressed intermittently hopeless helpless despondent. May do better with intermittent ECT than 3 times a week consider dopamine agonist 10/24/21 evaluate ect 10/26: pt reports feeling very hopeless/helpless, passive SI, denies plan or intent. anxious mood, reports ativan helpful. Looking forward to have ECT on Thursday. no medication changes. 10/27: continues to present as very hopeless/helpless, passive SI, no plan or intent. pt reports heartburn, added pepcid 20mg po BID. stop remeron start nortriptyline mirapex patient quite anxious ruminating given education regarding CBT Continue Seroquel 10/30/2021 Change Seroquel to 25 b.i.d. 50 at bedtime increase nortriptyline as tolerated check EKG given cognitive behavioral material to work with remains intermittently overwhelmed with hopelessness requires continued care ECT in a.m. monitor response monitor for any increased agitation (2) HTN (hypertension): Status: Acute Code(s): I10 - Essential (primary) hypertension Assessment and Plan: cont tx plan I spent minutes with the patient and/or on the patient floor today, greater than?50% of which was spent counseling/coordinating care. Reason for contiued inpatient stay Substantial Risk for: harm to self and rapid decompensation
[2021-11-01] VITALS (11 sets, daily range): BP systolic 101–211; BP diastolic 60–99; PULSE 61–104; RESP 12–20; TEMP 36.6–36.8; O2SAT 94–98
[2021-11-01] MEDS: amLODIPine Besylate 10 MG TABLET PO (07:56)
[2021-11-01] MEDS: lisinopriL 40 MG TABLET PO (07:57)
--- NOTE | 2021-11-01 08:00 | ECG_ITS ---
Test Reason : ON PYSCH MEDS, ECT Blood Pressure : / mmHG Vent. Rate : 099 BPM Atrial Rate : 099 BPM P-R Int : 208 ms QRS Dur : 102 ms QT Int : 368 ms P-R-T Axes : 054 000 076 degrees QTc Int : 472 ms Normal sinus rhythm Possible Inferior infarct (cited on or before 01-NOV-2021) Abnormal ECG When compared with ECG of 14-OCT-2021 13:31, No significant change was found Referred By: Addy Haskins Electronically Signed By:MO HERNANDEZ MD
--- NOTE | 2021-11-01 08:39 | HO.ANESPROP2 ---
[facility] Active Problems Active Problems: All Active Problems (Updated 10/05/21 @ 12:23 by MICHELE Zhu) Depression (Acute) Suicidal ideation (Acute) Major depressive disorder, recurrent severe without psychotic features (Acute) Cognitive and neurobehavioral dysfunction following brain injury (Acute) HTN (hypertension) (Acute) Past Medical History Medical History Alcohol use disorder, severe, in sustained remission Cognitive and neurobehavioral dysfunction following brain injury Hernia HTN (hypertension) Major depressive disorder, recurrent Major depressive disorder, recurrent severe without psychotic features Subdural hematoma TBI (traumatic brain injury) Functional capacity: independent ambulation Family History Family history of problems with anesthesia: No Surgical History Surgical History H/O brain surgery H/O umbilical hernia repair History of hip replacement S/P cholecystectomy History of Problems with Anesthesia: No Social History Social History Household Members: None Household Members Other:: Pt lives in a senior living Housing: Other Housing Other:: senior living. Do you presently have visiting nurse or other home services: No Alcohol intake: former Patient Tobacco Use Status: Never used Tobacco Use of substances other than those prescribed or required for medical reasons: No Currently Displaying Signs/Symptoms of Drug Intoxication Withdrawal: No Any prior treatment program specific to substance use: No Have you been hit, kicked, punched, or otherwise hurt by someone within the past year? If so, by whom?: No Do you feel safe in your current relationship?: No Current Relationship Is there a partner from a previous relationship who is making you feel unsafe now?: No Are you made to feel afraid or neglected: No Anabaptist Healthcare Practices: Pentecostalism. Are you DNR?: No Advance Directives: No Advance Directives Information Provided: No Advance Directives Date on File: 05/27/19 Healthcare Proxy: Yes Guardian: No Do you have thoughts of harming others: None Do you have a plan to hurt others: No Plan Recently lost weight without trying: No How much weight loss: Not applicable Eating poorly because of decreased appetite: No Nutrition screen score: 0 Nutrition Risks: No Nutritional Risk Poor oral hygiene: No service: No Sexual orientation: Straight/Heterosexual Meds Allergies Allergy/AdvReac Type Severity Reaction Status Date / Time fentanyl [FENTANYL] Allergy Intermediate unknown Verified 05/22/21 11:43 Active Medications: Current Medications Acetaminophen (Acetaminophen 325 Mg Tablet) 650 mg PO Q6H PRN PRN Reason: Pain (Scale Score 1-3) Last Admin: 10/31/21 05:21 Dose: 650 mg Documented by: Al Hydroxide/Mg Hydroxide (Magnesium Hydrox/Alum Hydrox 30 Ml Oral.Susp) 30 ml PO Q6H PRN PRN Reason: Heartburn/Nausea Albuterol Sulfate (Albuterol Sulfate 90 Mcg 8 Gm Inhaler) 2 puff INHALE Q6H PRN PRN Reason: Shortness Of Breath Last Admin: 10/31/21 21:20 Dose: 2 puff Documented by: Amlodipine Besylate (Amlodipine Besylate 10 Mg Tablet) 10 mg PO DAILY [facility]; Protocol Last Admin: 11/01/21 07:56 Dose: 10 mg Documented by: Artificial Tears (Artificial Tears 15 Ml Drops) 1 drop EYE-BOTH Q1H PRN PRN Reason: Dry Eye(S) Last Admin: 10/12/21 14:13 Dose: 1 drop Documented by: Docusate Sodium (Docusate Sodium 100 Mg Capsule) 100 mg PO BEDTIME PRN PRN Reason: Constipation Last Admin: 10/30/21 20:47 Dose: 100 mg Documented by: Docusate Sodium (Docusate Sodium 100 Mg Capsule) 100 mg PO BID PRN PRN Reason: Constipation Last Admin: 10/19/21 09:38 Dose: 100 mg Documented by: Famotidine (Famotidine 20 Mg Tablet) 20 mg PO BID@0700,1730 [facility] Last Admin: 10/31/21 16:31 Dose: 20 mg Documented by: Finasteride (Finasteride 5 Mg Tablet) 5 mg PO DAILY [facility] Last Admin: 10/31/21 08:35 Dose: 5 mg Documented by: Gabapentin (Gabapentin 400 Mg Capsule) 400 mg PO TID [facility] Last Admin: 10/31/21 21:22 Dose: Not Given Documented by: Hydrocortisone (Hydrocortisone 1 % Cream 28.35 Gm Tube) 1 appl TOPICAL Q4H PRN; Protocol PRN Reason: RECTAL IRRITATION Last Admin: 10/31/21 21:06 Dose: 1 appl Documented by: Hydroxyzine HCl (Hydroxyzine Hcl 25 Mg Tablet) 25 mg PO BEDTIME PRN PRN Reason: Anxiety Last Admin: 10/20/21 20:35 Dose: 25 mg Documented by: Lactated Ringer's (Lr) 1,000 mls @ 50 mls/hr IVCONT .Q20H TAZ Ibuprofen (Ibuprofen 400 Mg Tablet) 400 mg PO Q6H PRN PRN Reason: Pain, Moderate (Pain Scale 4-6 Last Admin: 10/29/21 06:06 Dose: 400 mg Documented by: Lamotrigine (Lamotrigine 100 Mg Tablet) 200 mg PO BID TAZ Last Admin: 10/31/21 22:00 Dose: Not Given Documented by: Latanoprost (Latanoprost 0.005 % Ophth No 2.5 Ml Drops) 1 drop EYE-BOTH BEDTIME TAZ Last Admin: 10/31/21 21:02 Dose: 1 drop Documented by: Lidocaine (Lidocaine 4 % Patch Adh..Patch) 1 patch TRANSDERMA DAILY TAZ; Protocol Last Admin: 10/30/21 10:24 Dose: 1 patch Documented by: Lisinopril (Lisinopril 40 Mg Tablet) 40 mg PO DAILY TAZ; Protocol Last Admin: 11/01/21 07:57 Dose: 40 mg Documented by: Lorazepam (Lorazepam 1 Mg Tablet) 1 mg PO BEDTIME TAZ Last Admin: 10/31/21 21:24 Dose: Not Given Documented by: Magnesium Hydroxide (Milk Of Magnesia 30 Ml Oral.Susp) 30 ml PO DAILY PRN PRN Reason: Constipation Last Admin: 10/11/21 15:55 Dose: 30 ml Documented by: Magnesium Hydroxide (Milk Of Magnesia 30 Ml Oral.Susp) 30 ml PO Q72H PRN PRN Reason: Constipation Melatonin (Melatonin 3 Mg Tablet) 6 mg PO BEDTIME TAZ Last Admin: 10/31/21 21:59 Dose: 6 mg Documented by: Miconazole Nitrate (Miconazole 2 % Extra Thick Cr 56.7 Gm Tube) 1 appl TOPICAL BID [facility]; Protocol Last Admin: 10/31/21 21:06 Dose: 1 appl Documented by: Multivitamins/Vitamin C (Multivitamin Tablet) 1 tab PO DAILY TAZ Last Admin: 10/31/21 08:36 Dose: 1 tab Documented by: Nortriptyline HCl (Nortriptyline Hcl 10 Mg Capsule) 20 mg PO BEDTIME TAZ Last Admin: 10/31/21 21:57 Dose: 20 mg Documented by: Pharmacy Consult (Consult Rx Other Drug Dosing) 1 each MISCELLANE DAILY PRN PRN Reason: Consult order Polyethylene Glycol (Polyethylene Glycol 3350 17 Gm Powd.Pack) 17 gm PO DAILY PRN PRN Reason: Constipation Last Admin: 10/05/21 15:53 Dose: 17 gm Documented by: Polyethylene Glycol (Polyethylene Glycol 3350 17 Gm Powd.Pack) 17 gm PO DAILY@1600 [facility] Last Admin: 10/31/21 16:41 Dose: 17 gm Documented by: Pramipexole Dihydrochloride (Pramipexole Di-Hcl 0.25 Mg Tablet) 0.25 mg PO TID [facility] Last Admin: 10/31/21 21:59 Dose: 0.25 mg Documented by: Quetiapine Fumarate (Quetiapine Fumarate 25 Mg Tablet) 25 mg PO BID PRN PRN Reason: Anxiety Last Admin: 10/29/21 01:49 Dose: 25 mg Documented by: Quetiapine Fumarate (Quetiapine Fumarate 50 Mg Tablet) 50 mg PO BEDTIME [facility] Last Admin: 10/31/21 21:59 Dose: 50 mg Documented by: Quetiapine Fumarate (Quetiapine Fumarate 25 Mg Tablet) 25 mg PO BID@0830,1330 [facility] Last Admin: 10/31/21 14:35 Dose: 25 mg Documented by: Trazodone HCl (Trazodone Hcl 50 Mg Tablet) 50 mg PO BEDTIME PRN PRN Reason: Insomnia Last Admin: 10/01/21 23:41 Dose: 50 mg Documented by: Trazodone HCl (Trazodone Hcl 100 Mg Tablet) 300 mg PO BEDTIME [facility] Last Admin: 10/31/21 21:58 Dose: 300 mg Documented by: Vortioxetine (Vortioxetine Hydrobromide 10 Mg Tablet) 20 mg PO DAILY [facility] Last Admin: 10/31/21 08:34 Dose: 20 mg Documented by: Home Medications Medication Instructions Recorded Confirmed Last Taken Type clotrimazole 1 % topical solution See Rx Instructions .ROUTE 05/22/21 10/01/21 Unknown History .COMPLEX PRN dextromethorphan-guaifenesin 10 10 ml PO Q6H PRN 05/22/21 10/01/21 Unknown History mg-200 mg/5 mL oral liquid docusate sodium 100 mg capsule See Rx Instructions .ROUTE 05/22/21 10/01/21 Unknown History .COMPLEX PRN finasteride 5 mg tablet 1 tab PO DAILY 05/22/21 10/01/21 10/01/21 History latanoprost 0.005 % eye drops 1 drp OPHTHALMIC (EYE) BEDTIME 05/22/21 10/01/21 Unknown History magnesium hydroxide 400 mg/5 mL 2,400 mg PO Q72H PRN 05/22/21 10/01/21 Unknown History oral suspension (Milk of Magnesia) melatonin 5 mg tablet 5 mg PO BEDTIME 05/22/21 10/01/21 09/30/21 History exaurizawkvy-ktergubs-nlqrwa tablet 1 tab PO DAILY 05/22/21 10/01/21 10/01/21 History polyethylene glycol 3350 17 17 g PO DAILY PRN 05/22/21 10/01/21 Unknown History gram/dose oral powder polyethylene glycol 3350 17 17 g PO DAILY@1600 05/22/21 10/01/21 Unknown History gram/dose oral powder psyllium husk 0.4 gram capsule 0.4 g PO DAILY 05/22/21 10/01/21 10/01/21 History (Metamucil) trazodone 150 mg tablet 2 tab PO BEDTIME 05/22/21 10/01/21 09/30/21 History acetaminophen 325 mg tablet 650 mg PO Q6H PRN 10/01/21 10/02/21 Unknown History albuterol sulfate 90 mcg/actuation 2 puff INHALATION Q6H PRN 10/01/21 10/01/21 Unknown History aerosol inhaler artifi.tears(hypromellose)(PF) 0.3 1 drp OPHTHALMIC (EYE) Q1H PRN 10/01/21 10/01/21 Unknown History % eye drops brexpiprazole 3 mg tablet (Rexulti) 1 tab PO DAILY 10/01/21 10/01/21 10/01/21 History guaifenesin 200 mg capsule 200 mg PO Q6H PRN 10/01/21 10/01/21 Unknown History hydrocortisone 1 % topical cream 1 appl TOPICAL Q4H PRN 10/01/21 10/01/21 Unknown History lamotrigine 200 mg tablet 1 tab PO BID 10/01/21 10/01/21 10/01/21 History miconazole nitrate 2 % topical 1 appl TOPICAL BID 10/01/21 10/01/21 Unknown History cream mirtazapine 45 mg tablet 1 tab PO BEDTIME 10/01/21 10/01/21 Unknown History quetiapine 25 mg tablet 25 mg PO BID PRN 10/01/21 10/01/21 Unknown History vortioxetine 5 mg tablet 1 tab PO DAILY 10/01/21 10/01/21 10/01/21 History (Trintellix) Exam Exam Date and Time: November 01, 2021 0839 Height,Weight and Vital Signs: Height 6 ft 2 in Weight 113.1 kg Last Vital Signs Temp 97.8 F 11/01/21 08:14 Pulse 104 H 11/01/21 08:14 Resp 20 11/01/21 08:14 BP 211/99 H 11/01/21 08:14 Pulse Ox 97 11/01/21 08:14 Pertinent Lab Results Pertinent Lab Results: Laboratory Tests 10/01/21 10/01/21 10/01/21 19:18 19:18 20:03 WBC 5.9 RBC 4.34 L Hgb 14.1 Hct 42.1 MCV 97.0 MCH 32.5 MCHC 33.5 RDW 11.7 Plt Count 146 L MPV 10.1 Immature Gran % (Auto) 0.5 H Neut % (Auto) 59.8 Lymph % (Auto) 29.3 Emmet % (Auto) 4.8 Eos % (Auto) 5.3 H Baso % (Auto) 0.3 Lymph # (Auto) 1.7 Emmet # (Auto) 0.3 Eos # (Auto) 0.3 Baso # (Auto) 0.0 Abs Immat Gran (auto) 0.03 Absolute Neuts (auto) 3.5 Absolute Nucleated RBC 0.000 Nucleated RBC % (auto) 0.0 Sodium 139 Potassium 4.3 Chloride 103 Carbon Dioxide 27 Anion Gap 13 BUN 17 H Creatinine 1.06 Estim Creat Clear Calc 90.0 Estimated GFR > 60 Random Glucose 154 H D Estimat Average Glucose Hemoglobin A1c % Calcium 9.3 Total Bilirubin 0.3 AST 27 ALT 43 H Alkaline Phosphatase 72 Total Protein 6.9 Albumin 4.5 25-OH Vitamin D Total 25-Hydroxy Vitamin D2 25-Hydroxy Vitamin D3 Urine Color Urine Appearance Urine pH Ur Specific Troup Urine Protein Urine Glucose (UA) Urine Ketones Urine Blood Urine Nitrite Ur Leukocyte Esterase Urine RBC Urine WBC Ur Squamous Epith Cells Urine Bacteria Hyaline Casts Urine Mucus Urine Opiates Screen Urine Fentanyl Screen Ur Barbiturates Screen Lamotrigine Ur Phencyclidine Scrn Ur Amphetamines Screen U Benzodiazepines Scrn Urine Cocaine Screen U Marijuana (THC) Screen COVID-19 (RACHEL) Negative COVID-19 Clin Com See Note 10/03/21 10/03/21 10/09/21 05:50 05:50 07:37 WBC RBC Hgb Hct MCV MCH MCHC RDW Plt Count MPV Immature Gran % (Auto) Neut % (Auto) Lymph % (Auto) Emmet % (Auto) Eos % (Auto) Baso % (Auto) Lymph # (Auto) Emmet # (Auto) Eos # (Auto) Baso # (Auto) Abs Immat Gran (auto) Absolute Neuts (auto) Absolute Nucleated RBC Nucleated RBC % (auto) Sodium Potassium Chloride Carbon Dioxide Anion Gap BUN Creatinine Estim Creat Clear Calc Estimated GFR Random Glucose Estimat Average Glucose Hemoglobin A1c % Calcium Total Bilirubin AST ALT Alkaline Phosphatase Total Protein Albumin 25-OH Vitamin D Total 25 L 25-Hydroxy Vitamin D2 <4 25-Hydroxy Vitamin D3 25 Urine Color YELLOW Urine Appearance CLEAR Urine pH 6.0 Ur Specific Troup 1.015 Urine Protein NEG Urine Glucose (UA) NEG Urine Ketones NEG Urine Blood NEG Urine Nitrite NEG Ur Leukocyte Esterase NEG Urine RBC 0-2 Urine WBC 0 Ur Squamous Epith Cells 2+ Urine Bacteria TRACE Hyaline Casts 5-9 Urine Mucus 2+ Urine Opiates Screen Not Detected Urine Fentanyl Screen Not Detected Ur Barbiturates Screen Not Detected Lamotrigine 7.2 Ur Phencyclidine Scrn Not Detected Ur Amphetamines Screen Not Detected U Benzodiazepines Scrn Not Detected Urine Cocaine Screen Not Detected U Marijuana (THC) Screen Not Detected COVID-19 ([facility]ACHEL) COVID-19 Clin Com 10/15/21 10/15/21 06:42 06:42 WBC RBC Hgb Hct MCV MCH MCHC RDW Plt Count MPV Immature Gran % (Auto) Neut % (Auto) Lymph % (Auto) Emmet % (Auto) Eos % (Auto) Baso % (Auto) Lymph # (Auto) Emmet # (Auto) Eos # (Auto) Baso # (Auto) Abs Immat Gran (auto) Absolute Neuts (auto) Absolute Nucleated RBC Nucleated RBC % (auto) Sodium Potassium Chloride Carbon Dioxide Anion Gap BUN Creatinine Estim Creat Clear Calc Estimated GFR Random Glucose Estimat Average Glucose 105 Hemoglobin A1c % 5.3 Calcium Total Bilirubin AST ALT Alkaline Phosphatase Total Protein Albumin 25-OH Vitamin D Total 25-Hydroxy Vitamin D2 25-Hydroxy Vitamin D3 Urine Color Urine Appearance Urine pH Ur Specific Troup Urine Protein Urine Glucose (UA) Urine Ketones Urine Blood Urine Nitrite Ur Leukocyte Esterase Urine RBC Urine WBC Ur Squamous Epith Cells Urine Bacteria Hyaline Casts Urine Mucus Urine Opiates Screen Urine Fentanyl Screen Ur Barbiturates Screen Lamotrigine 8.9 Ur Phencyclidine Scrn Ur Amphetamines Screen U Benzodiazepines Scrn Urine Cocaine Screen U Marijuana (THC) Screen COVID-19 ([facility]HEL) COVID-19 Clin Com Airway Mallampati Class: III TM Dist: >3cm Neck ROM: Full Heart: rrr Lungs: cta Assessment and Plan Assessment Anesthesia Assessment: Anesthesia Plan Discussed and Chart Reviewed Final Anesthetic Review Family History of Problems with Anesthesia: No History of Problems with Anesthesia: No NPO: Yes ASA Class: III Final Preanesthetic Review: No Changes in Pt Med Stat, Meds/Allgs Chart Reviewed and Consent Obtained/Reviewed Patient Risk: Intermediate Procedure Risk: Intermediate Anesthetic Plan Anesthetic Plan: GA Disposition: Standard PACU
--- NOTE | 2021-11-01 09:53 | MHC.SHP ---
Pre-Procedural Eval Section A Date of Service: 11/01/21 The patient is an INPATIENT: Yes Changes since office visit: Yes Changes in Medication and Yes Patient answered all questions; No Cold of Flu in the past 2 weeks and No New Medical Problems The History & Physical has been completed within 30 days and I have reviewed it.: Yes Section B Chief Complaint: MDD SI Allergies: Allergies Allergy/AdvReac Type Severity Reaction Status Date / Time fentanyl [FENTANYL] Allergy Intermediate unknown Verified 05/22/21 11:43 Plan I have reviewed the history and physical and performed a pertinent physical examination on my patient. No changes have occurred unless specified.
--- NOTE | 2021-11-01 10:19 | HO.ECTPROC ---
ECT Procedure Note Diagnosis/Treatment Date of Service: 11/01/21 Diagnosis: Major Depressive Disorder Current Treatment Number: 5 Treatment: Series Interval Clinical Notes: pt depressed anxious ruminating ECT Settings Device: THYMATRON DGx Electrode Placement: Bifrontal Program/Pulse Width: 0.50 Energy Percent: 70 Seizure Duration By EEG (in seconds): 62 Medications Administration General Anesthetic: Etomidate Muscle Relaxant: Succinylcholine, Rocuronium and Other (labetolol 10 mg pre tx ) Ancillary Medications Analgesics: Torodol - Pre ECT Anti-emetics: Zofran - Pre ECT Miscillaneous Medications: Propofol Airway Management Airway Management: Bag Mask Ventilation Treatment Recommendations No Changes Recommended: No change Pt Tolerated Procedure w/o Issue: Yes
[2021-11-01] MEDS: Acetaminophen 325 MG TABLET 650 MG PO ×2 (11:33→21:02)
[2021-11-01] MEDS: Finasteride 5 MG TABLET PO (11:34)
[2021-11-01] MEDS: Gabapentin 400 MG CAPSULE PO ×3 (11:35→20:49)
[2021-11-01] MEDS: lamoTRIgine 100 MG TABLET 200 MG PO ×2 (11:35→20:50)
[2021-11-01] MEDS: QUEtiapine Fumarate 25 MG TABLET PO ×2 (11:36→14:16)
[2021-11-01] MEDS: Miconazole 2 % Extra Thick Cr 56.7 Gm Tube 1 APPL TOPICAL (11:39)
[2021-11-01] MEDS: Multivitamin TABLET 1 TAB PO (11:39)
[2021-11-01] MEDS: Vortioxetine Hydrobromide 10 MG TABLET 20 MG PO (11:40)
[2021-11-01] MEDS: Ibuprofen 400 MG TABLET PO (14:16)
[2021-11-01] MEDS: Pramipexole Di-HCL 0.25 MG TABLET PO ×2 (14:16→20:49)
[2021-11-01] MEDS: polyethylene glycoL 3350 17 GM POWD.PACK PO (14:16)
--- NOTE | 2021-11-01 15:09 | HO.PSYCHPN ---
Subjective Subjective Date of Service: 11/01/21 Reason For Visit: MDD SI Subjective Notes: Conditional Voluntary Interim History: The nursing staff reported that the patient has been compliant with treatment. He had ECT today and he denied new symptoms. On interview, the patient reports depressive symptoms he is able to contract for safety in the facility. He denies side effects with the anesthesia after ECT Mental Status Exam Mental Status Exam Patient Appearance: Well Grooomed Patient Orientation: Person Level of Consciousness: Awake Patient Behavior: Cooperative Mood Description: Depressed Affect Description: Constricted Patient Cognition Impaired: No Ability to Follow Directions: Good Speech Pattern: Clear Hallucinations: None Delusions: Not Present Thought Process: Linear Thought Content: positive for Circumstantial Judgement: Fair Diagnostics Vital Signs (24Hr): Vital Signs - 24 hr 10/31/21 20:20 11/01/21 07:56 11/01/21 07:57 Temperature 98.3 F Pulse Rate 73 88 88 Respiratory Rate 19 Blood Pressure 134/80 173/82 H 173/82 H Pulse Oximetry 97 11/01/21 08:14 11/01/21 08:39 11/01/21 10:12 Temperature 97.8 F 98.1 F 98.3 F Pulse Rate 104 H 88 86 Respiratory Rate 20 16 16 Blood Pressure 211/99 H 173/82 H 192/91 H Pulse Oximetry 97 95 98 11/01/21 10:17 11/01/21 10:22 11/01/21 10:27 Temperature Pulse Rate 87 84 83 Respiratory Rate 20 20 12 Blood Pressure 169/87 H 152/86 H 156/86 H Pulse Oximetry 96 96 96 11/01/21 10:42 11/01/21 11:20 Temperature 97.9 F 98 F Pulse Rate 82 73 Respiratory Rate 18 14 Blood Pressure 149/82 H 136/76 Pulse Oximetry 96 BMI result Body Mass Index 32.0 Labs Results: 10/01/21 19:18 10/01/21 19:18 Medications Medications Current Medications Acetaminophen (Acetaminophen 325 Mg Tablet) 650 mg PO Q6H PRN PRN Reason: Pain (Scale Score 1-3) Last Admin: 11/01/21 11:33 Dose: 650 mg Documented by: Al Hydroxide/Mg Hydroxide (Magnesium Hydrox/Alum Hydrox 30 Ml Oral.Susp) 30 ml PO Q6H PRN PRN Reason: Heartburn/Nausea Albuterol Sulfate (Albuterol Sulfate 90 Mcg 8 Gm Inhaler) 2 puff INHALE Q6H PRN PRN Reason: Shortness Of Breath Last Admin: 10/31/21 21:20 Dose: 2 puff Documented by: Amlodipine Besylate (Amlodipine Besylate 10 Mg Tablet) 10 mg PO DAILY [facility]; Protocol Last Admin: 11/01/21 07:56 Dose: 10 mg Documented by: Artificial Tears (Artificial Tears 15 Ml Drops) 1 drop EYE-BOTH Q1H PRN PRN Reason: Dry Eye(S) Last Admin: 10/12/21 14:13 Dose: 1 drop Documented by: Docusate Sodium (Docusate Sodium 100 Mg Capsule) 100 mg PO BEDTIME PRN PRN Reason: Constipation Last Admin: 10/30/21 20:47 Dose: 100 mg Documented by: Docusate Sodium (Docusate Sodium 100 Mg Capsule) 100 mg PO BID PRN PRN Reason: Constipation Last Admin: 10/19/21 09:38 Dose: 100 mg Documented by: Famotidine (Famotidine 20 Mg Tablet) 20 mg PO BID@0700,1730 [facility] Last Admin: 11/01/21 08:40 Dose: Not Given Documented by: Finasteride (Finasteride 5 Mg Tablet) 5 mg PO DAILY [facility] Last Admin: 11/01/21 11:34 Dose: 5 mg Documented by: Gabapentin (Gabapentin 400 Mg Capsule) 400 mg PO TID [facility] Last Admin: 11/01/21 14:16 Dose: 400 mg Documented by: Hydrocortisone (Hydrocortisone 1 % Cream 28.35 Gm Tube) 1 appl TOPICAL Q4H PRN; Protocol PRN Reason: RECTAL IRRITATION Last Admin: 10/31/21 21:06 Dose: 1 appl Documented by: Hydroxyzine HCl (Hydroxyzine Hcl 25 Mg Tablet) 25 mg PO BEDTIME PRN PRN Reason: Anxiety Last Admin: 10/20/21 20:35 Dose: 25 mg Documented by: Lactated Ringer's (Lr) 1,000 mls @ 50 mls/hr IVCONT .Q20H [facility] Last Admin: 11/01/21 11:27 Dose: Not Given Documented by: Ibuprofen (Ibuprofen 400 Mg Tablet) 400 mg PO Q6H PRN PRN Reason: Pain, Moderate (Pain Scale 4-6 Last Admin: 11/01/21 14:16 Dose: 400 mg Documented by: Lamotrigine (Lamotrigine 100 Mg Tablet) 200 mg PO BID [facility] Last Admin: 11/01/21 11:35 Dose: 200 mg Documented by: Latanoprost (Latanoprost 0.005 % Ophth No 2.5 Ml Drops) 1 drop EYE-BOTH BEDTIME [facility] Last Admin: 10/31/21 21:02 Dose: 1 drop Documented by: Lidocaine (Lidocaine 4 % Patch Adh..Patch) 1 patch TRANSDERMA DAILY [facility]; Protocol Last Admin: 11/01/21 11:39 Dose: Not Given Documented by: Lisinopril (Lisinopril 40 Mg Tablet) 40 mg PO DAILY [facility]; Protocol Last Admin: 11/01/21 07:57 Dose: 40 mg Documented by: Lorazepam (Lorazepam 1 Mg Tablet) 1 mg PO BEDTIME [facility] Last Admin: 10/31/21 21:24 Dose: Not Given Documented by: Magnesium Hydroxide (Milk Of Magnesia 30 Ml Oral.Susp) 30 ml PO DAILY PRN PRN Reason: Constipation Last Admin: 10/11/21 15:55 Dose: 30 ml Documented by: Magnesium Hydroxide (Milk Of Magnesia 30 Ml Oral.Susp) 30 ml PO Q72H PRN PRN Reason: Constipation Melatonin (Melatonin 3 Mg Tablet) 6 mg PO BEDTIME [facility] Last Admin: 10/31/21 21:59 Dose: 6 mg Documented by: Miconazole Nitrate (Miconazole 2 % Extra Thick Cr 56.7 Gm Tube) 1 appl TOPICAL BID [facility]; Protocol Last Admin: 11/01/21 11:39 Dose: 1 appl Documented by: Multivitamins/Vitamin C (Multivitamin Tablet) 1 tab PO DAILY [facility] Last Admin: 11/01/21 11:39 Dose: 1 tab Documented by: Nortriptyline HCl (Nortriptyline Hcl 10 Mg Capsule) 30 mg PO BEDTIME [facility] Pharmacy Consult (Consult Rx Other Drug Dosing) 1 each MISCELLANE DAILY PRN PRN Reason: Consult order Polyethylene Glycol (Polyethylene Glycol 3350 17 Gm Powd.Pack) 17 gm PO DAILY PRN PRN Reason: Constipation Last Admin: 10/05/21 15:53 Dose: 17 gm Documented by: Polyethylene Glycol (Polyethylene Glycol 3350 17 Gm Powd.Pack) 17 gm PO DAILY@1600 [facility] Last Admin: 11/01/21 14:16 Dose: 17 gm Documented by: Pramipexole Dihydrochloride (Pramipexole Di-Hcl 0.25 Mg Tablet) 0.25 mg PO TID [facility] Last Admin: 11/01/21 14:16 Dose: 0.25 mg Documented by: Quetiapine Fumarate (Quetiapine Fumarate 25 Mg Tablet) 25 mg PO BID PRN PRN Reason: Anxiety Last Admin: 10/29/21 01:49 Dose: 25 mg Documented by: Quetiapine Fumarate (Quetiapine Fumarate 50 Mg Tablet) 50 mg PO BEDTIME [facility] Last Admin: 10/31/21 21:59 Dose: 50 mg Documented by: Quetiapine Fumarate (Quetiapine Fumarate 25 Mg Tablet) 25 mg PO BID@0830,1330 [facility] Last Admin: 11/01/21 14:16 Dose: 25 mg Documented by: Trazodone HCl (Trazodone Hcl 50 Mg Tablet) 50 mg PO BEDTIME PRN PRN Reason: Insomnia Last Admin: 10/01/21 23:41 Dose: 50 mg Documented by: Trazodone HCl (Trazodone Hcl 100 Mg Tablet) 300 mg PO BEDTIME [facility] Last Admin: 10/31/21 21:58 Dose: 300 mg Documented by: Vortioxetine (Vortioxetine Hydrobromide 10 Mg Tablet) 20 mg PO DAILY [facility] Last Admin: 11/01/21 11:40 Dose: 20 mg Documented by: Allergies Allergies Allergy/AdvReac Type Severity Reaction Status Date / Time fentanyl [FENTANYL] Allergy Intermediate unknown Verified 05/22/21 11:43 Assessment & Plan Assessment & Plan (1) Depression: Status: Acute Code(s): F32.A - Depression, unspecified Assessment and Plan: The patient is an elderly male with a long history of major depressive disorder and TBI, admitted before, very well known by the service.? He has been admitted for exacerbation of depression with suicidal ideation without a clear stressor.? Historically, the patient responds to ECT. 10/21/21: Endorsing SI, hoplessness and depression. Will discus with team 10/21 ref mental state +/- modifying treatment/dispo planning. Discharge on hold consider ECT would clearly benefit from outpatient therapy which has been hard to arrange patient not to logical would benefit best from and person treatment. 10/22/2021 Patient continues depressed intermittently hopeless helpless despondent. May do better with intermittent ECT than 3 times a week consider dopamine agonist 10/24/21 evaluate ect 10/26: pt reports feeling very hopeless/helpless, passive SI, denies plan or intent. anxious mood, reports ativan helpful. Looking forward to have ECT on Thursday. no medication changes. 10/27: continues to present as very hopeless/helpless, passive SI, no plan or intent. pt reports heartburn, added pepcid 20mg po BID. stop remeron start nortriptyline mirapex patient quite anxious ruminating given education regarding CBT Continue Seroquel 10/30/2021 Change Seroquel to 25 b.i.d. 50 at bedtime increase nortriptyline as tolerated check EKG given cognitive behavioral material to work with remains intermittently overwhelmed with hopelessness requires continued care ECT in a.m. monitor response monitor for any increased agitation (2) HTN (hypertension): Status: Acute Code(s): I10 - Essential (primary) hypertension Assessment and Plan: cont tx plan I spent minutes with the patient and/or on the patient floor today, greater than?50% of which was spent counseling/coordinating care. Reason for contiued inpatient stay Substantial Risk for: harm to self, inability to function, rapid decompensation and med/psych decompensation
[2021-11-01] MEDS: LORazepam 1 MG TABLET PO (20:49)
[2021-11-01] MEDS: Nortriptyline HCl 10 MG CAPSULE 30 MG PO (20:50)
[2021-11-01] MEDS: Latanoprost 0.005 % Ophth Sol 2.5 ML DROPS 1 DROP EYE-BOTH (20:50)
[2021-11-01] MEDS: QUEtiapine Fumarate 50 MG TABLET PO (20:50)
[2021-11-01] MEDS: Melatonin 3 MG TABLET 6 MG PO (20:50)
[2021-11-01] MEDS: Docusate Sodium 100 MG CAPSULE PO (20:50)
[2021-11-01] MEDS: traZODone HCL 100 MG TABLET 300 MG PO (20:50)
[2021-11-01] MEDS: Hydrocortisone 1 % Cream 28.35 GM TUBE 1 APPL TOPICAL (21:03)
[2021-11-02] MEDS: Acetaminophen 325 MG TABLET 650 MG PO ×3 (05:10→21:14)
[2021-11-02 06:00] VITALS: BP 139/91; PULSE 66; RESP 16; TEMP 36.7; O2SAT 96
[2021-11-02] MEDS: Famotidine 20 MG TABLET PO ×2 (06:50→18:06)
[2021-11-02] MEDS: Finasteride 5 MG TABLET PO (09:04)
[2021-11-02] MEDS: lamoTRIgine 100 MG TABLET 200 MG PO ×2 (09:05→21:14)
[2021-11-02] MEDS: Multivitamin TABLET 1 TAB PO (09:06)
[2021-11-02 09:07] VITALS: BP 139/91; PULSE 66
[2021-11-02] MEDS: amLODIPine Besylate 10 MG TABLET PO (09:07)
[2021-11-02] MEDS: Pramipexole Di-HCL 0.25 MG TABLET PO ×3 (09:07→21:13)
[2021-11-02] MEDS: QUEtiapine Fumarate 25 MG TABLET PO ×2 (09:07→13:09)
[2021-11-02] MEDS: Gabapentin 400 MG CAPSULE PO ×3 (09:07→21:13)
--- NOTE | 2021-11-02 09:33 | P.PNPSI_ITS ---
Subjective Subjective Date of Service: 11/02/21 Reason For Visit: MDD SI Subjective Notes: Conditional Voluntary Interim History: The nursing staff reported that he has had even dropout from the list of medications and the patient was requesting that. Yesterday the patient was very sedated after ECT and he did not engage in any group. On interview, the patient reports that he feels tired after ECT with some aches and pains. His mood remains dysphoric but he was seen on the common areas watching TV Mental Status Exam Mental Status Exam Patient Appearance: Well Grooomed Patient Orientation: Person Level of Consciousness: Awake Patient Behavior: Cooperative Mood Description: Calm and Depressed Affect Description: Constricted Patient Cognition Impaired: Yes Ability to Follow Directions: Good Speech Pattern: Clear Hallucinations: None Delusions: Not Present Thought Process: Linear Thought Content: positive for Circumstantial Judgement: Fair Diagnostics Vital Signs (24Hr): Vital Signs - 24 hr 11/01/21 10:12 11/01/21 10:17 11/01/21 10:22 Temperature 98.3 F Pulse Rate 86 87 84 Respiratory Rate 16 20 20 Blood Pressure 192/91 H 169/87 H 152/86 H Pulse Oximetry 98 96 96 11/01/21 10:27 11/01/21 10:42 11/01/21 11:20 Temperature 97.9 F 98 F Pulse Rate 83 82 73 Respiratory Rate 12 18 14 Blood Pressure 156/86 H 149/82 H 136/76 Pulse Oximetry 96 96 11/01/21 18:00 11/02/21 06:00 11/02/21 09:07 Temperature 97.9 F 98.0 F Pulse Rate 61 66 66 Respiratory Rate 18 16 Blood Pressure 101/60 139/91 H 139/91 H Pulse Oximetry 94 96 BMI result Body Mass Index 32.0 Labs Results: 10/01/21 19:18 10/01/21 19:18 Medications Medications Current Medications Acetaminophen (Acetaminophen 325 Mg Tablet) 650 mg PO Q6H PRN PRN Reason: Pain (Scale Score 1-3) Last Admin: 11/02/21 05:10 Dose: 650 mg Documented by: Al Hydroxide/Mg Hydroxide (Magnesium Hydrox/Alum Hydrox 30 Ml Oral.Susp) 30 ml PO Q6H PRN PRN Reason: Heartburn/Nausea Albuterol Sulfate (Albuterol Sulfate 90 Mcg 8 Gm Inhaler) 2 puff INHALE Q6H PRN PRN Reason: Shortness Of Breath Last Admin: 10/31/21 21:20 Dose: 2 puff Documented by: Amlodipine Besylate (Amlodipine Besylate 10 Mg Tablet) 10 mg PO DAILY [facility]; Protocol Last Admin: 11/02/21 09:07 Dose: 10 mg Documented by: Artificial Tears (Artificial Tears 15 Ml Drops) 1 drop EYE-BOTH Q1H PRN PRN Reason: Dry Eye(S) Last Admin: 10/12/21 14:13 Dose: 1 drop Documented by: Docusate Sodium (Docusate Sodium 100 Mg Capsule) 100 mg PO BEDTIME PRN PRN Reason: Constipation Last Admin: 11/01/21 20:50 Dose: 100 mg Documented by: Docusate Sodium (Docusate Sodium 100 Mg Capsule) 100 mg PO BID PRN PRN Reason: Constipation Last Admin: 10/19/21 09:38 Dose: 100 mg Documented by: Famotidine (Famotidine 20 Mg Tablet) 20 mg PO BID@0700,1730 [facility] Last Admin: 11/02/21 06:50 Dose: 20 mg Documented by: Finasteride (Finasteride 5 Mg Tablet) 5 mg PO DAILY [facility] Last Admin: 11/02/21 09:04 Dose: 5 mg Documented by: Gabapentin (Gabapentin 400 Mg Capsule) 400 mg PO TID [facility] Last Admin: 11/02/21 09:07 Dose: 400 mg Documented by: Hydrocortisone (Hydrocortisone 1 % Cream 28.35 Gm Tube) 1 appl TOPICAL Q4H PRN; Protocol PRN Reason: RECTAL IRRITATION Last Admin: 11/01/21 21:03 Dose: 1 appl Documented by: Hydroxyzine HCl (Hydroxyzine Hcl 25 Mg Tablet) 25 mg PO BEDTIME PRN PRN Reason: Anxiety Last Admin: 10/20/21 20:35 Dose: 25 mg Documented by: Lactated Ringer's (Lr) 1,000 mls @ 50 mls/hr IVCONT .Q20H [facility] Last Admin: 11/01/21 11:27 Dose: Not Given Documented by: Ibuprofen (Ibuprofen 400 Mg Tablet) 400 mg PO Q6H PRN PRN Reason: Pain, Moderate (Pain Scale 4-6 Last Admin: 11/01/21 14:16 Dose: 400 mg Documented by: Lamotrigine (Lamotrigine 100 Mg Tablet) 200 mg PO BID [facility] Last Admin: 11/02/21 09:05 Dose: 200 mg Documented by: Latanoprost (Latanoprost 0.005 % Ophth No 2.5 Ml Drops) 1 drop EYE-BOTH BEDTIME [facility] Last Admin: 11/01/21 20:50 Dose: 1 drop Documented by: Lidocaine (Lidocaine 4 % Patch Adh..Patch) 1 patch TRANSDERMA DAILY [facility]; Protocol Last Admin: 11/01/21 11:39 Dose: Not Given Documented by: Lisinopril (Lisinopril 40 Mg Tablet) 40 mg PO DAILY [facility]; Protocol Last Admin: 11/01/21 07:57 Dose: 40 mg Documented by: Lorazepam (Lorazepam 1 Mg Tablet) 1 mg PO BEDTIME [facility] Last Admin: 11/01/21 20:49 Dose: 1 mg Documented by: Lorazepam (Lorazepam 0.5 Mg Tablet) 0.5 mg PO TID PRN PRN Reason: Anxiety Magnesium Hydroxide (Milk Of Magnesia 30 Ml Oral.Susp) 30 ml PO DAILY PRN PRN Reason: Constipation Last Admin: 10/11/21 15:55 Dose: 30 ml Documented by: Magnesium Hydroxide (Milk Of Magnesia 30 Ml Oral.Susp) 30 ml PO Q72H PRN PRN Reason: Constipation Melatonin (Melatonin 3 Mg Tablet) 6 mg PO BEDTIME [facility] Last Admin: 11/01/21 20:50 Dose: 6 mg Documented by: Miconazole Nitrate (Miconazole 2 % Extra Thick Cr 56.7 Gm Tube) 1 appl TOPICAL BID [facility]; Protocol Last Admin: 11/01/21 20:56 Dose: Not Given Documented by: Multivitamins/Vitamin C (Multivitamin Tablet) 1 tab PO DAILY [facility] Last Admin: 11/02/21 09:06 Dose: 1 tab Documented by: Nortriptyline HCl (Nortriptyline Hcl 10 Mg Capsule) 30 mg PO BEDTIME [facility] Last Admin: 11/01/21 20:50 Dose: 30 mg Documented by: Pharmacy Consult (Consult Rx Other Drug Dosing) 1 each MISCELLANE DAILY PRN PRN Reason: Consult order Polyethylene Glycol (Polyethylene Glycol 3350 17 Gm Powd.Pack) 17 gm PO DAILY PRN PRN Reason: Constipation Last Admin: 10/05/21 15:53 Dose: 17 gm Documented by: Polyethylene Glycol (Polyethylene Glycol 3350 17 Gm Powd.Pack) 17 gm PO DAILY@1600 [facility] Last Admin: 11/01/21 14:16 Dose: 17 gm Documented by: Pramipexole Dihydrochloride (Pramipexole Di-Hcl 0.25 Mg Tablet) 0.25 mg PO TID [facility] Last Admin: 11/02/21 09:07 Dose: 0.25 mg Documented by: Quetiapine Fumarate (Quetiapine Fumarate 25 Mg Tablet) 25 mg PO BID PRN PRN Reason: Anxiety Last Admin: 10/29/21 01:49 Dose: 25 mg Documented by: Quetiapine Fumarate (Quetiapine Fumarate 50 Mg Tablet) 50 mg PO BEDTIME [facility] Last Admin: 11/01/21 20:50 Dose: 50 mg Documented by: Quetiapine Fumarate (Quetiapine Fumarate 25 Mg Tablet) 25 mg PO BID@0830,1330 [facility] Last Admin: 11/02/21 09:07 Dose: 25 mg Documented by: Trazodone HCl (Trazodone Hcl 50 Mg Tablet) 50 mg PO BEDTIME PRN PRN Reason: Insomnia Last Admin: 10/01/21 23:41 Dose: 50 mg Documented by: Trazodone HCl (Trazodone Hcl 100 Mg Tablet) 300 mg PO BEDTIME [facility] Last Admin: 11/01/21 20:50 Dose: 300 mg Documented by: Vortioxetine (Vortioxetine Hydrobromide 20 Mg Tablet) 20 mg PO DAILY [facility] Allergies Allergies Allergy/AdvReac Type Severity Reaction Status Date / Time fentanyl [FENTANYL] Allergy Intermediate unknown Verified 05/22/21 11:43 Assessment & Plan Assessment & Plan (1) Depression: Status: Acute Code(s): F32.A - Depression, unspecified Assessment and Plan: The patient is an elderly male with a long history of major depressive disorder and TBI, admitted before, very well known by the service.? He has been admitted for exacerbation of depression with suicidal ideation without a clear stressor.? Historically, the patient responds to ECT. 10/21/21: Endorsing SI, hoplessness and depression. Will discus with team 10/21 ref mental state +/- modifying treatment/dispo planning. Discharge on hold consider ECT would clearly benefit from outpatient therapy which has been hard to arrange patient not to logical would benefit best from and person treatment. 10/22/2021 Patient continues depressed intermittently hopeless helpless despondent. May do better with intermittent ECT than 3 times a week consider dopamine agonist 10/24/21 evaluate ect 10/26: pt reports feeling very hopeless/helpless, passive SI, denies plan or intent. anxious mood, reports ativan helpful. Looking forward to have ECT on Thursday. no medication changes. 10/27: continues to present as very hopeless/helpless, passive SI, no plan or intent. pt reports heartburn, added pepcid 20mg po BID. stop remeron start nortriptyline mirapex patient quite anxious ruminating given education regarding CBT Continue Seroquel 10/30/2021 Change Seroquel to 25 b.i.d. 50 at bedtime increase nortriptyline as tolerated check EKG given cognitive behavioral material to work with remains intermittently overwhelmed with hopelessness requires continued care ECT in a.m. monitor response monitor for any increased agitation (2) HTN (hypertension): Status: Acute Code(s): I10 - Essential (primary) hypertension Assessment and Plan: cont tx plan I spent minutes with the patient and/or on the patient floor today, greater than?50% of which was spent counseling/coordinating care. Reason for contiued inpatient stay Substantial Risk for: inability to function, rapid decompensation and med/psych decompensation
[2021-11-02 14:39] VITALS: BP 139/91; PULSE 66
[2021-11-02] MEDS: lisinopriL 40 MG TABLET PO (14:39)
[2021-11-02] MEDS: Vortioxetine Hydrobromide 20 MG TABLET PO (14:40)
--- NOTE | 2021-11-02 15:27 | PC.NURSE ---
This functional tester typewriters was toileting patient with help of ROUNDING MACHINE OPERATOR. While assisting the patient to stand with walker and pivot to WC patient became agigtated and began banging his walker on the floor. During this outburst patient lost his balance and started leaning towards wall. We were able to successfully intervene and move patient into WC. Patient frequently has behavioral issues on the weekends particularly if he is anticipating DC. VSS were stable. Patient was out in common area watching tv the rest of the afternoon. His behavior was beligerent especially regarding the selection of television programs.
[2021-11-02] MEDS: polyethylene glycoL 3350 17 GM POWD.PACK PO (16:19)
[2021-11-02 18:00] VITALS: BP 134/73; PULSE 70; RESP 20; TEMP 36.5; O2SAT 95
[2021-11-02] MEDS: LORazepam 1 MG TABLET PO (21:13)
[2021-11-02] MEDS: Nortriptyline HCl 10 MG CAPSULE 30 MG PO (21:15)
[2021-11-02] MEDS: traZODone HCL 100 MG TABLET 300 MG PO (21:15)
[2021-11-02] MEDS: QUEtiapine Fumarate 50 MG TABLET PO (21:15)
[2021-11-02] MEDS: Melatonin 3 MG TABLET 6 MG PO (21:15)
[2021-11-02] MEDS: Albuterol Sulfate 90 MCG 8 GM INHALER 2 PUFF INHALE (21:16)
[2021-11-02] MEDS: Latanoprost 0.005 % Ophth Sol 2.5 ML DROPS 1 DROP EYE-BOTH (21:16)
[2021-11-03] MEDS: Ibuprofen 400 MG TABLET PO ×2 (04:57→17:57)
[2021-11-03] MEDS: Famotidine 20 MG TABLET PO ×2 (04:58→17:40)
[2021-11-03 06:00] VITALS: RESP 18; TEMP 36.4; O2SAT 95
[2021-11-03 09:06] VITALS: BP 156/81; PULSE 77
[2021-11-03] MEDS: amLODIPine Besylate 10 MG TABLET PO (09:06)
[2021-11-03] MEDS: Vortioxetine Hydrobromide 20 MG TABLET PO (09:06)
[2021-11-03] MEDS: QUEtiapine Fumarate 25 MG TABLET PO ×2 (09:06→14:04)
[2021-11-03] MEDS: Multivitamin TABLET 1 TAB PO (09:06)
[2021-11-03] MEDS: lisinopriL 40 MG TABLET PO (09:07)
[2021-11-03] MEDS: Finasteride 5 MG TABLET PO (09:07)
[2021-11-03] MEDS: lamoTRIgine 100 MG TABLET 200 MG PO ×2 (09:07→19:57)
[2021-11-03] MEDS: Gabapentin 400 MG CAPSULE PO ×3 (09:07→19:58)
[2021-11-03] MEDS: Pramipexole Di-HCL 0.25 MG TABLET PO ×3 (09:13→20:00)
--- NOTE | 2021-11-03 09:45 | HO.PSYCHPN ---
Subjective Subjective Date of Service: 11/03/21 Reason For Visit: MDD SI Subjective Notes: Conditional Voluntary Interim History: the nursing staff reported that yesterday the patient had an incident in the bathroom he stated that he fell but apparently he slipped And he was helped by staff right away. She has complain of pain on his knees and he has been angry at times. On interview, the patient denies new symptoms he remains dysphoric and he does not want to be discharge too soon . No safety concerns at this moment. Mental Status Exam Mental Status Exam Patient Appearance: Well Grooomed Patient Orientation: Person Level of Consciousness: Awake Patient Behavior: Cooperative Mood Description: Withdrawn Affect Description: Constricted Ability to Follow Directions: Good Speech Pattern: Appropriate Hallucinations: None Delusions: Not Present Thought Process: Linear Thought Content: positive for Circumstantial Judgement: Fair Diagnostics Vital Signs (24Hr): Vital Signs - 24 hr 11/02/21 14:39 11/02/21 18:00 11/03/21 06:00 Temperature 97.7 F 97.5 F Pulse Rate 66 70 Respiratory Rate 20 18 Blood Pressure 139/91 H 134/73 Pulse Oximetry 95 95 11/03/21 09:06 Temperature Pulse Rate 77 Respiratory Rate Blood Pressure 156/81 H Pulse Oximetry BMI result Body Mass Index 32.0 Labs Results: 10/01/21 19:18 10/01/21 19:18 Medications Medications Current Medications Acetaminophen (Acetaminophen 325 Mg Tablet) 650 mg PO Q6H PRN PRN Reason: Pain (Scale Score 1-3) Last Admin: 11/02/21 21:14 Dose: 650 mg Documented by: Al Hydroxide/Mg Hydroxide (Magnesium Hydrox/Alum Hydrox 30 Ml Oral.Susp) 30 ml PO Q6H PRN PRN Reason: Heartburn/Nausea Albuterol Sulfate (Albuterol Sulfate 90 Mcg 8 Gm Inhaler) 2 puff INHALE Q6H PRN PRN Reason: Shortness Of Breath Last Admin: 11/02/21 21:16 Dose: 2 puff Documented by: Amlodipine Besylate (Amlodipine Besylate 10 Mg Tablet) 10 mg PO DAILY [facility]Z; Protocol Last Admin: 11/03/21 09:06 Dose: 10 mg Documented by: Artificial Tears (Artificial Tears 15 Ml Drops) 1 drop EYE-BOTH Q1H PRN PRN Reason: Dry Eye(S) Last Admin: 10/12/21 14:13 Dose: 1 drop Documented by: Docusate Sodium (Docusate Sodium 100 Mg Capsule) 100 mg PO BEDTIME PRN PRN Reason: Constipation Last Admin: 11/01/21 20:50 Dose: 100 mg Documented by: Docusate Sodium (Docusate Sodium 100 Mg Capsule) 100 mg PO BID PRN PRN Reason: Constipation Last Admin: 10/19/21 09:38 Dose: 100 mg Documented by: Famotidine (Famotidine 20 Mg Tablet) 20 mg PO BID@0700,1730 [facility] Last Admin: 11/03/21 04:58 Dose: 20 mg Documented by: Finasteride (Finasteride 5 Mg Tablet) 5 mg PO DAILY [facility] Last Admin: 11/03/21 09:07 Dose: 5 mg Documented by: Gabapentin (Gabapentin 400 Mg Capsule) 400 mg PO TID [facility] Last Admin: 11/03/21 09:07 Dose: 400 mg Documented by: Hydrocortisone (Hydrocortisone 1 % Cream 28.35 Gm Tube) 1 appl TOPICAL Q4H PRN; Protocol PRN Reason: RECTAL IRRITATION Last Admin: 11/01/21 21:03 Dose: 1 appl Documented by: Hydroxyzine HCl (Hydroxyzine Hcl 25 Mg Tablet) 25 mg PO BEDTIME PRN PRN Reason: Anxiety Last Admin: 10/20/21 20:35 Dose: 25 mg Documented by: Ibuprofen (Ibuprofen 400 Mg Tablet) 400 mg PO Q6H PRN PRN Reason: Pain, Moderate (Pain Scale 4-6 Last Admin: 11/03/21 04:57 Dose: 400 mg Documented by: Lamotrigine (Lamotrigine 100 Mg Tablet) 200 mg PO BID [facility] Last Admin: 11/03/21 09:07 Dose: 200 mg Documented by: Latanoprost (Latanoprost 0.005 % Ophth No 2.5 Ml Drops) 1 drop EYE-BOTH BEDTIME [facility] Last Admin: 11/02/21 21:16 Dose: 1 drop Documented by: Lidocaine (Lidocaine 4 % Patch Adh..Patch) 1 patch TRANSDERMA DAILY [facility]; Protocol Last Admin: 11/03/21 09:07 Dose: Not Given Documented by: Lisinopril (Lisinopril 40 Mg Tablet) 40 mg PO DAILY [facility]; Protocol Last Admin: 11/03/21 09:07 Dose: 40 mg Documented by: Lorazepam (Lorazepam 1 Mg Tablet) 1 mg PO BEDTIME [facility] Last Admin: 11/02/21 21:13 Dose: 1 mg Documented by: Lorazepam (Lorazepam 0.5 Mg Tablet) 0.5 mg PO TID PRN PRN Reason: Anxiety Magnesium Hydroxide (Milk Of Magnesia 30 Ml Oral.Susp) 30 ml PO DAILY PRN PRN Reason: Constipation Last Admin: 10/11/21 15:55 Dose: 30 ml Documented by: Magnesium Hydroxide (Milk Of Magnesia 30 Ml Oral.Susp) 30 ml PO Q72H PRN PRN Reason: Constipation Melatonin (Melatonin 3 Mg Tablet) 6 mg PO BEDTIME [facility] Last Admin: 11/02/21 21:15 Dose: 6 mg Documented by: Miconazole Nitrate (Miconazole 2 % Extra Thick Cr 56.7 Gm Tube) 1 appl TOPICAL BID [facility]; Protocol Last Admin: 11/03/21 09:08 Dose: Not Given Documented by: Multivitamins/Vitamin C (Multivitamin Tablet) 1 tab PO DAILY [facility] Last Admin: 11/03/21 09:06 Dose: 1 tab Documented by: Nortriptyline HCl (Nortriptyline Hcl 10 Mg Capsule) 30 mg PO BEDTIME [facility] Last Admin: 11/02/21 21:15 Dose: 30 mg Documented by: Pharmacy Consult (Consult Rx Other Drug Dosing) 1 each MISCELLANE DAILY PRN PRN Reason: Consult order Polyethylene Glycol (Polyethylene Glycol 3350 17 Gm Powd.Pack) 17 gm PO DAILY PRN PRN Reason: Constipation Last Admin: 10/05/21 15:53 Dose: 17 gm Documented by: Polyethylene Glycol (Polyethylene Glycol 3350 17 Gm Powd.Pack) 17 gm PO DAILY@1600 [facility] Last Admin: 11/02/21 16:19 Dose: 17 gm Documented by: Pramipexole Dihydrochloride (Pramipexole Di-Hcl 0.25 Mg Tablet) 0.25 mg PO TID [facility] Last Admin: 11/03/21 09:13 Dose: 0.25 mg Documented by: Quetiapine Fumarate (Quetiapine Fumarate 25 Mg Tablet) 25 mg PO BID PRN PRN Reason: Anxiety Last Admin: 10/29/21 01:49 Dose: 25 mg Documented by: Quetiapine Fumarate (Quetiapine Fumarate 50 Mg Tablet) 50 mg PO BEDTIME [facility] Last Admin: 11/02/21 21:15 Dose: 50 mg Documented by: Quetiapine Fumarate (Quetiapine Fumarate 25 Mg Tablet) 25 mg PO BID@0830,1330 [facility] Last Admin: 11/03/21 09:06 Dose: 25 mg Documented by: Trazodone HCl (Trazodone Hcl 50 Mg Tablet) 50 mg PO BEDTIME PRN PRN Reason: Insomnia Last Admin: 10/01/21 23:41 Dose: 50 mg Documented by: Trazodone HCl (Trazodone Hcl 100 Mg Tablet) 300 mg PO BEDTIME [facility] Last Admin: 11/02/21 21:15 Dose: 300 mg Documented by: Vortioxetine (Vortioxetine Hydrobromide 20 Mg Tablet) 20 mg PO DAILY [facility] Last Admin: 11/03/21 09:06 Dose: 20 mg Documented by: Allergies Allergies Allergy/AdvReac Type Severity Reaction Status Date / Time fentanyl [FENTANYL] Allergy Intermediate unknown Verified 05/22/21 11:43 Assessment & Plan Assessment & Plan (1) Depression: Status: Acute Code(s): F32.A - Depression, unspecified Assessment and Plan: The patient is an elderly male with a long history of major depressive disorder and TBI, admitted before, very well known by the service.? He has been admitted for exacerbation of depression with suicidal ideation without a clear stressor.? Historically, the patient responds to ECT. 10/21/21: Endorsing SI, hoplessness and depression. Will discus with team 10/21 ref mental state +/- modifying treatment/dispo planning. Discharge on hold consider ECT would clearly benefit from outpatient therapy which has been hard to arrange patient not to logical would benefit best from and person treatment. 10/22/2021 Patient continues depressed intermittently hopeless helpless despondent. May do better with intermittent ECT than 3 times a week consider dopamine agonist 10/24/21 evaluate ect 10/26: pt reports feeling very hopeless/helpless, passive SI, denies plan or intent. anxious mood, reports ativan helpful. Looking forward to have ECT on Thursday. no medication changes. 10/27: continues to present as very hopeless/helpless, passive SI, no plan or intent. pt reports heartburn, added pepcid 20mg po BID. stop remeron start nortriptyline mirapex patient quite anxious ruminating given education regarding CBT Continue Seroquel 10/30/2021 Change Seroquel to 25 b.i.d. 50 at bedtime increase nortriptyline as tolerated check EKG given cognitive behavioral material to work with remains intermittently overwhelmed with hopelessness requires continued care ECT in a.m. monitor response monitor for any increased agitation (2) HTN (hypertension): Status: Acute Code(s): I10 - Essential (primary) hypertension Assessment and Plan: cont tx plan I spent minutes with the patient and/or on the patient floor today, greater than?50% of which was spent counseling/coordinating care. Reason for contiued inpatient stay Substantial Risk for: harm to self, inability to function, rapid decompensation and med/psych decompensation
[2021-11-03] MEDS: LORazepam 0.5 MG TABLET PO (14:05)
[2021-11-03] MEDS: polyethylene glycoL 3350 17 GM POWD.PACK PO (15:46)
[2021-11-03 19:50] VITALS: BP 155/74; PULSE 68; RESP 20; TEMP 36.9; O2SAT 96
[2021-11-03] MEDS: Latanoprost 0.005 % Ophth Sol 2.5 ML DROPS 1 DROP EYE-BOTH (19:54)
[2021-11-03] MEDS: Acetaminophen 325 MG TABLET 650 MG PO (19:54)
[2021-11-03] MEDS: Nortriptyline HCl 10 MG CAPSULE 30 MG PO (19:56)
[2021-11-03] MEDS: Docusate Sodium 100 MG CAPSULE PO (19:56)
[2021-11-03] MEDS: QUEtiapine Fumarate 50 MG TABLET PO (19:58)
[2021-11-03] MEDS: traZODone HCL 100 MG TABLET 300 MG PO (19:59)
[2021-11-03] MEDS: Melatonin 3 MG TABLET 6 MG PO (19:59)
[2021-11-03] MEDS: LORazepam 1 MG TABLET PO (20:00)
[2021-11-04] MEDS: Albuterol Sulfate 90 MCG 8 GM INHALER 2 PUFF INHALE (02:13)
[2021-11-04] MEDS: LORazepam 0.5 MG TABLET PO ×2 (02:38→14:17)
[2021-11-04] MEDS: Acetaminophen 325 MG TABLET 650 MG PO ×2 (02:38→16:11)
[2021-11-04 06:00] VITALS: BP 133/84; PULSE 76; TEMP 36.4; O2SAT 95
[2021-11-04] MEDS: Famotidine 20 MG TABLET PO (06:42)
[2021-11-04] MEDS: lamoTRIgine 100 MG TABLET 200 MG PO ×2 (08:22→20:44)
[2021-11-04] MEDS: Multivitamin TABLET 1 TAB PO (08:22)
[2021-11-04 08:23] VITALS: BP 133/84; PULSE 76
[2021-11-04] MEDS: Pramipexole Di-HCL 0.25 MG TABLET PO (08:23)
[2021-11-04] MEDS: Vortioxetine Hydrobromide 20 MG TABLET PO (08:23)
[2021-11-04] MEDS: Gabapentin 400 MG CAPSULE PO ×3 (08:23→20:44)
[2021-11-04] MEDS: amLODIPine Besylate 10 MG TABLET PO (08:23)
[2021-11-04] MEDS: QUEtiapine Fumarate 25 MG TABLET PO (08:23)
[2021-11-04] MEDS: Finasteride 5 MG TABLET PO (08:23)
[2021-11-04] MEDS: lisinopriL 40 MG TABLET PO (08:23)
--- NOTE | 2021-11-04 11:58 | HO.PSYCHPN ---
Subjective Subjective Date of Service: 11/04/21 Reason For Visit: MDD SI Subjective Notes: Conditional Voluntary Interim History: pt anxious dysphoric somewhat lethargic difficulty with gait encouraging pt Medication Compliance: Yes Side effects from medications: Yes Attending Groups: Intermittent Mental Status Exam Mental Status Exam Patient Appearance: Well Grooomed Patient Orientation: Person Level of Consciousness: Awake Patient Behavior: Cooperative Mood Description: Withdrawn Affect Description: Constricted Ability to Follow Directions: Good Speech Pattern: Appropriate Hallucinations: None Delusions: Not Present Thought Process: Linear Thought Content: positive for Circumstantial Judgement: Fair Diagnostics Vital Signs (24Hr): Vital Signs - 24 hr 11/03/21 19:50 11/04/21 06:00 11/04/21 08:23 Temperature 98.5 F 97.6 F Pulse Rate 68 76 76 Respiratory Rate 20 Blood Pressure 155/74 H 133/84 133/84 Pulse Oximetry 96 95 BMI result Body Mass Index 32.0 Labs Results: 10/01/21 19:18 10/01/21 19:18 Medications Medications Current Medications Acetaminophen (Acetaminophen 325 Mg Tablet) 650 mg PO Q6H PRN PRN Reason: Pain (Scale Score 1-3) Last Admin: 11/04/21 02:38 Dose: 650 mg Documented by: Al Hydroxide/Mg Hydroxide (Magnesium Hydrox/Alum Hydrox 30 Ml Oral.Susp) 30 ml PO Q6H PRN PRN Reason: Heartburn/Nausea Albuterol Sulfate (Albuterol Sulfate 90 Mcg 8 Gm Inhaler) 2 puff INHALE Q6H PRN PRN Reason: Shortness Of Breath Last Admin: 11/04/21 02:13 Dose: 2 puff Documented by: Amlodipine Besylate (Amlodipine Besylate 10 Mg Tablet) 10 mg PO DAILY [facility]; Protocol Last Admin: 11/04/21 08:23 Dose: 10 mg Documented by: Artificial Tears (Artificial Tears 15 Ml Drops) 1 drop EYE-BOTH Q1H PRN PRN Reason: Dry Eye(S) Last Admin: 10/12/21 14:13 Dose: 1 drop Documented by: Docusate Sodium (Docusate Sodium 100 Mg Capsule) 100 mg PO BEDTIME PRN PRN Reason: Constipation Last Admin: 11/03/21 19:56 Dose: 100 mg Documented by: Docusate Sodium (Docusate Sodium 100 Mg Capsule) 100 mg PO BID PRN PRN Reason: Constipation Last Admin: 10/19/21 09:38 Dose: 100 mg Documented by: Famotidine (Famotidine 20 Mg Tablet) 20 mg PO BID@0700,1730 [facility] Last Admin: 11/04/21 06:42 Dose: 20 mg Documented by: Finasteride (Finasteride 5 Mg Tablet) 5 mg PO DAILY [facility] Last Admin: 11/04/21 08:23 Dose: 5 mg Documented by: Gabapentin (Gabapentin 400 Mg Capsule) 400 mg PO TID [facility] Last Admin: 11/04/21 08:23 Dose: 400 mg Documented by: Hydrocortisone (Hydrocortisone 1 % Cream 28.35 Gm Tube) 1 appl TOPICAL Q4H PRN; Protocol PRN Reason: RECTAL IRRITATION Last Admin: 11/01/21 21:03 Dose: 1 appl Documented by: Hydroxyzine HCl (Hydroxyzine Hcl 25 Mg Tablet) 25 mg PO BEDTIME PRN PRN Reason: Anxiety Last Admin: 10/20/21 20:35 Dose: 25 mg Documented by: Ibuprofen (Ibuprofen 400 Mg Tablet) 400 mg PO Q6H PRN PRN Reason: Pain, Moderate (Pain Scale 4-6 Last Admin: 11/03/21 17:57 Dose: 400 mg Documented by: Lamotrigine (Lamotrigine 100 Mg Tablet) 200 mg PO BID [facility] Last Admin: 11/04/21 08:22 Dose: 200 mg Documented by: Latanoprost (Latanoprost 0.005 % Ophth No 2.5 Ml Drops) 1 drop EYE-BOTH BEDTIME [facility] Last Admin: 11/03/21 19:54 Dose: 1 drop Documented by: Lidocaine (Lidocaine 4 % Patch Adh..Patch) 1 patch TRANSDERMA DAILY [facility]; Protocol Last Admin: 11/04/21 10:05 Dose: Not Given Documented by: Lisinopril (Lisinopril 40 Mg Tablet) 40 mg PO DAILY [facility]; Protocol Last Admin: 11/04/21 08:23 Dose: 40 mg Documented by: Lorazepam (Lorazepam 1 Mg Tablet) 1 mg PO BEDTIME [facility] Last Admin: 11/03/21 20:00 Dose: 1 mg Documented by: Lorazepam (Lorazepam 0.5 Mg Tablet) 0.5 mg PO TID PRN PRN Reason: Anxiety Last Admin: 11/04/21 02:38 Dose: 0.5 mg Documented by: Magnesium Hydroxide (Milk Of Magnesia 30 Ml Oral.Susp) 30 ml PO DAILY PRN PRN Reason: Constipation Last Admin: 10/11/21 15:55 Dose: 30 ml Documented by: Magnesium Hydroxide (Milk Of Magnesia 30 Ml Oral.Susp) 30 ml PO Q72H PRN PRN Reason: Constipation Melatonin (Melatonin 3 Mg Tablet) 6 mg PO BEDTIME [facility] Last Admin: 11/03/21 19:59 Dose: 6 mg Documented by: Miconazole Nitrate (Miconazole 2 % Extra Thick Cr 56.7 Gm Tube) 1 appl TOPICAL BID [facility]; Protocol Last Admin: 11/04/21 10:05 Dose: Not Given Documented by: Multivitamins/Vitamin C (Multivitamin Tablet) 1 tab PO DAILY [facility] Last Admin: 11/04/21 08:22 Dose: 1 tab Documented by: Nortriptyline HCl (Nortriptyline Hcl 10 Mg Capsule) 30 mg PO BEDTIME [facility] Last Admin: 11/03/21 19:56 Dose: 30 mg Documented by: Pharmacy Consult (Consult Rx Other Drug Dosing) 1 each MISCELLANE DAILY PRN PRN Reason: Consult order Polyethylene Glycol (Polyethylene Glycol 3350 17 Gm Powd.Pack) 17 gm PO DAILY PRN PRN Reason: Constipation Last Admin: 10/05/21 15:53 Dose: 17 gm Documented by: Polyethylene Glycol (Polyethylene Glycol 3350 17 Gm Powd.Pack) 17 gm PO DAILY@1600 [facility] Last Admin: 11/03/21 15:46 Dose: 17 gm Documented by: Pramipexole Dihydrochloride (Pramipexole Di-Hcl 0.25 Mg Tablet) 0.25 mg PO TID [facility] Last Admin: 11/04/21 08:23 Dose: 0.25 mg Documented by: Quetiapine Fumarate (Quetiapine Fumarate 25 Mg Tablet) 25 mg PO BID PRN PRN Reason: Anxiety Last Admin: 10/29/21 01:49 Dose: 25 mg Documented by: Quetiapine Fumarate (Quetiapine Fumarate 50 Mg Tablet) 50 mg PO BEDTIME [facility] Last Admin: 11/03/21 19:58 Dose: 50 mg Documented by: Quetiapine Fumarate (Quetiapine Fumarate 25 Mg Tablet) 25 mg PO BID@0830,1330 [facility] Last Admin: 11/04/21 08:23 Dose: 25 mg Documented by: Trazodone HCl (Trazodone Hcl 50 Mg Tablet) 50 mg PO BEDTIME PRN PRN Reason: Insomnia Last Admin: 10/01/21 23:41 Dose: 50 mg Documented by: Trazodone HCl (Trazodone Hcl 100 Mg Tablet) 300 mg PO BEDTIME [facility] Last Admin: 11/03/21 19:59 Dose: 300 mg Documented by: Vortioxetine (Vortioxetine Hydrobromide 20 Mg Tablet) 20 mg PO DAILY [facility] Last Admin: 11/04/21 08:23 Dose: 20 mg Documented by: Allergies Allergies Allergy/AdvReac Type Severity Reaction Status Date / Time fentanyl [FENTANYL] Allergy Intermediate unknown Verified 05/22/21 11:43 Assessment & Plan Assessment & Plan (1) Depression: Status: Acute Code(s): F32.A - Depression, unspecified Assessment and Plan: The patient is an elderly male with a long history of major depressive disorder and TBI, admitted before, very well known by the service.? He has been admitted for exacerbation of depression with suicidal ideation without a clear stressor.? Historically, the patient responds to ECT. 10/21/21: Endorsing SI, hoplessness and depression. Will discus with team 10/21 ref mental state +/- modifying treatment/dispo planning. Discharge on hold consider ECT would clearly benefit from outpatient therapy which has been hard to arrange patient not to logical would benefit best from and person treatment. 10/22/2021 Patient continues depressed intermittently hopeless helpless despondent. May do better with intermittent ECT than 3 times a week consider dopamine agonist 10/24/21 evaluate ect 10/26: pt reports feeling very hopeless/helpless, passive SI, denies plan or intent. anxious mood, reports ativan helpful. Looking forward to have ECT on Thursday. no medication changes. 10/27: continues to present as very hopeless/helpless, passive SI, no plan or intent. pt reports heartburn, added pepcid 20mg po BID. stop remeron start nortriptyline mirapex patient quite anxious ruminating given education regarding CBT Continue Seroquel 10/30/2021 Change Seroquel to 25 b.i.d. 50 at bedtime increase nortriptyline as tolerated check EKG given cognitive behavioral material to work with remains intermittently overwhelmed with hopelessness requires continued care ECT in a.m. monitor response monitor for any increased agitation consider ect lower trazadone hold daytime seroquel encourage inc activity (2) HTN (hypertension): Status: Acute Code(s): I10 - Essential (primary) hypertension Assessment and Plan: cont tx plan I spent minutes with the patient and/or on the patient floor today, greater than?50% of which was spent counseling/coordinating care. Reason for contiued inpatient stay Substantial Risk for: harm to self and rapid decompensation
[2021-11-04] MEDS: polyethylene glycoL 3350 17 GM POWD.PACK PO (14:53)
[2021-11-04] MEDS: Pramipexole Di-HCL 0.125 MG TABLET PO ×2 (14:53→20:44)
[2021-11-04 18:00] VITALS: BP 159/81; PULSE 71; RESP 17; TEMP 36.9; O2SAT 98
[2021-11-04] MEDS: Melatonin 3 MG TABLET 6 MG PO (20:43)
[2021-11-04] MEDS: Latanoprost 0.005 % Ophth Sol 2.5 ML DROPS 1 DROP EYE-BOTH (20:43)
[2021-11-04] MEDS: QUEtiapine Fumarate 50 MG TABLET PO (20:44)
[2021-11-04] MEDS: traZODone HCL 50 MG TABLET 150 MG PO (20:44)
[2021-11-04] MEDS: LORazepam 1 MG TABLET PO (20:44)
[2021-11-04] MEDS: Nortriptyline HCl 10 MG CAPSULE 30 MG PO (21:01)
[2021-11-04] MEDS: Ibuprofen 400 MG TABLET PO (21:01)
[2021-11-04 23:12] LABS: Influenza A PCR NEGATIVE (Negative); Influenza B PCR NEGATIVE (Negative); Resp Syncy Virus RNA Qual PCR NEGATIVE (Negative); SARS COV2 PCR INHOUSE NEGATIVE (Negative)
[2021-11-05 06:00] VITALS: BP 154/77; PULSE 72; TEMP 36.6; O2SAT 95
[2021-11-05] MEDS: Famotidine 20 MG TABLET PO (06:34)
[2021-11-05] MEDS: Acetaminophen 325 MG TABLET 650 MG PO ×3 (06:34→20:48)
[2021-11-05] MEDS: Cholecalciferol (Vitamin D3) 10 MCG TABLET 20 MCG PO (09:51)
[2021-11-05] MEDS: Finasteride 5 MG TABLET PO (09:51)
[2021-11-05 09:52] VITALS: BP 154/77
[2021-11-05] MEDS: Pramipexole Di-HCL 0.125 MG TABLET PO ×3 (09:52→20:39)
[2021-11-05] MEDS: Gabapentin 400 MG CAPSULE PO ×2 (09:52→14:48)
[2021-11-05] MEDS: lamoTRIgine 100 MG TABLET 200 MG PO (09:52)
[2021-11-05] MEDS: amLODIPine Besylate 10 MG TABLET PO (09:52)
[2021-11-05] MEDS: Multivitamin TABLET 1 TAB PO (09:52)
[2021-11-05] MEDS: Vortioxetine Hydrobromide 20 MG TABLET PO (09:52)
[2021-11-05] MEDS: lisinopriL 40 MG TABLET PO (09:52)
[2021-11-05] MEDS: QUEtiapine Fumarate 25 MG TABLET PO (14:48)
[2021-11-05 18:00] VITALS: BP 134/72; PULSE 892; RESP 16; TEMP 36.1; O2SAT 95
[2021-11-05] MEDS: Latanoprost 0.005 % Ophth Sol 2.5 ML DROPS 1 DROP EYE-BOTH (20:31)
[2021-11-05] MEDS: polyethylene glycoL 3350 17 GM POWD.PACK PO (20:33)
[2021-11-05] MEDS: Melatonin 3 MG TABLET 6 MG PO (20:34)
[2021-11-05] MEDS: Nortriptyline HCl 10 MG CAPSULE 30 MG PO (20:37)
[2021-11-05] MEDS: traZODone HCL 50 MG TABLET 150 MG PO (20:38)
[2021-11-05] MEDS: QUEtiapine Fumarate 50 MG TABLET PO (20:39)
[2021-11-05] MEDS: Hydrocortisone 1 % Cream 28.35 GM TUBE 1 APPL TOPICAL (20:44)
--- NOTE | 2021-11-05 21:40 | HO.PSYCHPN ---
Subjective Subjective Date of Service: 11/05/21 Reason For Visit: MDD SI Subjective Notes: Conditional Voluntary Guardianship: No Medical Problems Affecting Mental Status: No Interim History: Patient depressed withdrawn has had episode of urinary and fecal incontinence. Feeling better today Agreeable to ECT in the morning has been intermittent ECT schedule to limit side effects Medication Compliance: Yes Mental Status Exam Mental Status Exam Patient Appearance: Well Grooomed Patient Orientation: Person Level of Consciousness: Awake Patient Behavior: Cooperative Mood Description: Withdrawn Affect Description: Constricted Ability to Follow Directions: Good Speech Pattern: Appropriate Hallucinations: None Delusions: Not Present Thought Process: Linear Thought Content: positive for Circumstantial Judgement: Fair Diagnostics Vital Signs (24Hr): Vital Signs - 24 hr 11/05/21 06:00 11/05/21 09:52 11/05/21 18:00 Temperature 97.8 F 97 F Pulse Rate 72 892 H Respiratory Rate 16 Blood Pressure 154/77 H 154/77 H 134/72 Pulse Oximetry 95 95 BMI result Body Mass Index 32.0 Labs Results: 10/01/21 19:18 10/01/21 19:18 Labs: Laboratory Results - last 48 hr 11/04/21 21:00 Influenza Type A (PCR) NEGATIVE Influenza Type B (PCR) NEGATIVE RSV RNA Qual (PCR) NEGATIVE SARS-CoV-2 RNA (RT-PCR) NEGATIVE Medications Medications Current Medications Acetaminophen (Acetaminophen 325 Mg Tablet) 650 mg PO Q6H PRN PRN Reason: Pain (Scale Score 1-3) Last Admin: 11/05/21 20:48 Dose: 650 mg Documented by: Al Hydroxide/Mg Hydroxide (Magnesium Hydrox/Alum Hydrox 30 Ml Oral.Susp) 30 ml PO Q6H PRN PRN Reason: Heartburn/Nausea Albuterol Sulfate (Albuterol Sulfate 90 Mcg 8 Gm Inhaler) 2 puff INHALE Q6H PRN PRN Reason: Shortness Of Breath Last Admin: 11/04/21 02:13 Dose: 2 puff Documented by: Amlodipine Besylate (Amlodipine Besylate 10 Mg Tablet) 10 mg PO DAILY [facility]; Protocol Last Admin: 11/05/21 09:52 Dose: 10 mg Documented by: Artificial Tears (Artificial Tears 15 Ml Drops) 1 drop EYE-BOTH Q1H PRN PRN Reason: Dry Eye(S) Last Admin: 10/12/21 14:13 Dose: 1 drop Documented by: Docusate Sodium (Docusate Sodium 100 Mg Capsule) 100 mg PO BEDTIME PRN PRN Reason: Constipation Last Admin: 11/03/21 19:56 Dose: 100 mg Documented by: Docusate Sodium (Docusate Sodium 100 Mg Capsule) 100 mg PO BID PRN PRN Reason: Constipation Last Admin: 10/19/21 09:38 Dose: 100 mg Documented by: Famotidine (Famotidine 20 Mg Tablet) 20 mg PO BID@0700,1730 [facility] Last Admin: 11/05/21 18:06 Dose: Not Given Documented by: Finasteride (Finasteride 5 Mg Tablet) 5 mg PO DAILY [facility] Last Admin: 11/05/21 09:51 Dose: 5 mg Documented by: Gabapentin (Gabapentin 400 Mg Capsule) 400 mg PO TID [facility] Last Admin: 11/05/21 21:13 Dose: Not Given Documented by: Hydrocortisone (Hydrocortisone 1 % Cream 28.35 Gm Tube) 1 appl TOPICAL Q4H PRN; Protocol PRN Reason: RECTAL IRRITATION Last Admin: 11/05/21 20:44 Dose: 1 appl Documented by: Hydroxyzine HCl (Hydroxyzine Hcl 25 Mg Tablet) 25 mg PO BEDTIME PRN PRN Reason: Anxiety Last Admin: 10/20/21 20:35 Dose: 25 mg Documented by: Ibuprofen (Ibuprofen 400 Mg Tablet) 400 mg PO Q6H PRN PRN Reason: Pain, Moderate (Pain Scale 4-6 Last Admin: 11/04/21 21:01 Dose: 400 mg Documented by: Lamotrigine (Lamotrigine 100 Mg Tablet) 200 mg PO BID [facility] Last Admin: 11/05/21 09:52 Dose: 200 mg Documented by: Latanoprost (Latanoprost 0.005 % Ophth No 2.5 Ml Drops) 1 drop EYE-BOTH BEDTIME [facility] Last Admin: 11/05/21 20:31 Dose: 1 drop Documented by: Lidocaine (Lidocaine 4 % Patch Adh..Patch) 1 patch TRANSDERMA DAILY [facility]; Protocol Last Admin: 11/05/21 12:38 Dose: Not Given Documented by: Lisinopril (Lisinopril 40 Mg Tablet) 40 mg PO DAILY [facility]; Protocol Last Admin: 11/05/21 09:52 Dose: 40 mg Documented by: Lorazepam (Lorazepam 0.5 Mg Tablet) 0.5 mg PO Q4H PRN PRN Reason: Anxiety Last Admin: 11/04/21 14:17 Dose: 0.5 mg Documented by: Magnesium Hydroxide (Milk Of Magnesia 30 Ml Oral.Susp) 30 ml PO DAILY PRN PRN Reason: Constipation Last Admin: 10/11/21 15:55 Dose: 30 ml Documented by: Magnesium Hydroxide (Milk Of Magnesia 30 Ml Oral.Susp) 30 ml PO Q72H PRN PRN Reason: Constipation Melatonin (Melatonin 3 Mg Tablet) 6 mg PO BEDTIME [facility] Last Admin: 11/05/21 20:34 Dose: 6 mg Documented by: Miconazole Nitrate (Miconazole 2 % Extra Thick Cr 56.7 Gm Tube) 1 appl TOPICAL BID [facility]; Protocol Last Admin: 11/05/21 12:38 Dose: Not Given Documented by: Multivitamins/Vitamin C (Multivitamin Tablet) 1 tab PO DAILY [facility] Last Admin: 11/05/21 09:52 Dose: 1 tab Documented by: Nortriptyline HCl (Nortriptyline Hcl 10 Mg Capsule) 30 mg PO BEDTIME [facility] Last Admin: 11/05/21 20:37 Dose: 30 mg Documented by: Pharmacy Consult (Consult Rx Other Drug Dosing) 1 each MISCELLANE DAILY PRN PRN Reason: Consult order Polyethylene Glycol (Polyethylene Glycol 3350 17 Gm Powd.Pack) 17 gm PO DAILY PRN PRN Reason: Constipation Last Admin: 10/05/21 15:53 Dose: 17 gm Documented by: Polyethylene Glycol (Polyethylene Glycol 3350 17 Gm Powd.Pack) 17 gm PO DAILY@1600 [facility] Last Admin: 11/05/21 20:33 Dose: 17 gm Documented by: Pramipexole Dihydrochloride (Pramipexole Di-Hcl 0.125 Mg Tablet) 0.125 mg PO TID [facility] Last Admin: 11/05/21 20:39 Dose: 0.125 mg Documented by: Quetiapine Fumarate (Quetiapine Fumarate 25 Mg Tablet) 25 mg PO BID PRN PRN Reason: Anxiety Last Admin: 11/05/21 14:48 Dose: 25 mg Documented by: Quetiapine Fumarate (Quetiapine Fumarate 50 Mg Tablet) 50 mg PO BEDTIME [facility] Last Admin: 11/05/21 20:39 Dose: 50 mg Documented by: Trazodone HCl (Trazodone Hcl 50 Mg Tablet) 50 mg PO BEDTIME PRN PRN Reason: Insomnia Last Admin: 10/01/21 23:41 Dose: 50 mg Documented by: Trazodone HCl (Trazodone Hcl 50 Mg Tablet) 150 mg PO BEDTIME [facility] Last Admin: 11/05/21 20:38 Dose: 150 mg Documented by: Vitamin D (Cholecalciferol (Vitamin D3) 10 Mcg Tablet) 20 mcg PO DAILY [facility] Last Admin: 11/05/21 09:51 Dose: 20 mcg Documented by: Vortioxetine (Vortioxetine Hydrobromide 20 Mg Tablet) 20 mg PO DAILY [facility] Last Admin: 11/05/21 09:52 Dose: 20 mg Documented by: Allergies Allergies Allergy/AdvReac Type Severity Reaction Status Date / Time fentanyl [FENTANYL] Allergy Intermediate unknown Verified 05/22/21 11:43 Assessment & Plan Assessment & Plan (1) Depression: Status: Acute Code(s): F32.A - Depression, unspecified Assessment and Plan: The patient is an elderly male with a long history of major depressive disorder and TBI, admitted before, very well known by the service.? He has been admitted for exacerbation of depression with suicidal ideation without a clear stressor.? Historically, the patient responds to ECT. 10/21/21: Endorsing SI, hoplessness and depression. Will discus with team 10/21 ref mental state +/- modifying treatment/dispo planning. Discharge on hold consider ECT would clearly benefit from outpatient therapy which has been hard to arrange patient not to logical would benefit best from and person treatment. 10/22/2021 Patient continues depressed intermittently hopeless helpless despondent. May do better with intermittent ECT than 3 times a week consider dopamine agonist 10/24/21 evaluate ect 10/26: pt reports feeling very hopeless/helpless, passive SI, denies plan or intent. anxious mood, reports ativan helpful. Looking forward to have ECT on Thursday. no medication changes. 10/27: continues to present as very hopeless/helpless, passive SI, no plan or intent. pt reports heartburn, added pepcid 20mg po BID. stop remeron start nortriptyline mirapex patient quite anxious ruminating given education regarding CBT Continue Seroquel 11/05/2021 Continue Seroquel 50 at bedtime nortriptyline at HS check nortriptyline level ECT scheduled would benefit from ongoing physical activity (2) HTN (hypertension): Status: Acute Code(s): I10 - Essential (primary) hypertension Assessment and Plan: cont tx plan I spent minutes with the patient and/or on the patient floor today, greater than?50% of which was spent counseling/coordinating care. Reason for contiued inpatient stay Substantial Risk for: harm to self, rapid decompensation and med/psych decompensation
[2021-11-06] VITALS (17 sets, daily range): BP systolic 123–173; BP diastolic 52–92; PULSE 75–101; RESP 16–23; TEMP 36.6–37.4; O2SAT 93–97
[2021-11-06] MEDS: lisinopriL 40 MG TABLET PO (06:01)
[2021-11-06] MEDS: amLODIPine Besylate 10 MG TABLET PO (06:02)
--- NOTE | 2021-11-06 07:10 | P.CONAN_ITS ---
[facility] Active Problems Active Problems: All Active Problems (Updated 10/05/21 @ 12:23 by MICHELE Matias) Depression (Acute) Suicidal ideation (Acute) Major depressive disorder, recurrent severe without psychotic features (Acute) Cognitive and neurobehavioral dysfunction following brain injury (Acute) HTN (hypertension) (Acute) Past Medical History Medical History Alcohol use disorder, severe, in sustained remission Cognitive and neurobehavioral dysfunction following brain injury Hernia HTN (hypertension) Major depressive disorder, recurrent Major depressive disorder, recurrent severe without psychotic features Subdural hematoma TBI (traumatic brain injury) Functional capacity: independent ambulation Family History Family history of problems with anesthesia: No Surgical History Surgical History H/O brain surgery H/O umbilical hernia repair History of hip replacement S/P cholecystectomy History of Problems with Anesthesia: No Social History Social History Household Members: None Household Members Other:: Pt lives in a senior care Housing: Other Housing Other:: senior care. Do you presently have visiting nurse or other home services: No Alcohol intake: former Patient Tobacco Use Status: Never used Tobacco Use of substances other than those prescribed or required for medical reasons: No Currently Displaying Signs/Symptoms of Drug Intoxication Withdrawal: No Any prior treatment program specific to substance use: No Have you been hit, kicked, punched, or otherwise hurt by someone within the past year? If so, by whom?: No Do you feel safe in your current relationship?: No Current Relationship Is there a partner from a previous relationship who is making you feel unsafe now?: No Are you made to feel afraid or neglected: No Islam Healthcare Practices: Cheondoism. Are you DNR?: No Advance Directives: No Advance Directives Information Provided: No Advance Directives Date on File: 05/27/19 Healthcare Proxy: Yes Guardian: No Do you have thoughts of harming others: None Do you have a plan to hurt others: No Plan Recently lost weight without trying: No How much weight loss: Not applicable Eating poorly because of decreased appetite: No Nutrition screen score: 0 Nutrition Risks: No Nutritional Risk Poor oral hygiene: No service: No Sexual orientation: Straight/Heterosexual Meds Allergies Allergy/AdvReac Type Severity Reaction Status Date / Time fentanyl [FENTANYL] Allergy Intermediate unknown Verified 05/22/21 11:43 Active Medications: Current Medications Acetaminophen (Acetaminophen 325 Mg Tablet) 650 mg PO Q6H PRN PRN Reason: Pain (Scale Score 1-3) Last Admin: 11/05/21 20:48 Dose: 650 mg Documented by: Al Hydroxide/Mg Hydroxide (Magnesium Hydrox/Alum Hydrox 30 Ml Oral.Susp) 30 ml PO Q6H PRN PRN Reason: Heartburn/Nausea Albuterol Sulfate (Albuterol Sulfate 90 Mcg 8 Gm Inhaler) 2 puff INHALE Q6H PRN PRN Reason: Shortness Of Breath Last Admin: 11/04/21 02:13 Dose: 2 puff Documented by: Amlodipine Besylate (Amlodipine Besylate 10 Mg Tablet) 10 mg PO DAILY [facility]; Protocol Last Admin: 11/06/21 06:02 Dose: 10 mg Documented by: Artificial Tears (Artificial Tears 15 Ml Drops) 1 drop EYE-BOTH Q1H PRN PRN Reason: Dry Eye(S) Last Admin: 10/12/21 14:13 Dose: 1 drop Documented by: Docusate Sodium (Docusate Sodium 100 Mg Capsule) 100 mg PO BEDTIME PRN PRN Reason: Constipation Last Admin: 11/03/21 19:56 Dose: 100 mg Documented by: Docusate Sodium (Docusate Sodium 100 Mg Capsule) 100 mg PO BID PRN PRN Reason: Constipation Last Admin: 10/19/21 09:38 Dose: 100 mg Documented by: Famotidine (Famotidine 20 Mg Tablet) 20 mg PO BID@0700,1730 [facility] Last Admin: 11/05/21 18:06 Dose: Not Given Documented by: Finasteride (Finasteride 5 Mg Tablet) 5 mg PO DAILY [facility] Last Admin: 11/05/21 09:51 Dose: 5 mg Documented by: Gabapentin (Gabapentin 400 Mg Capsule) 400 mg PO TID [facility] Last Admin: 11/05/21 21:13 Dose: Not Given Documented by: Hydrocortisone (Hydrocortisone 1 % Cream 28.35 Gm Tube) 1 appl TOPICAL Q4H PRN; Protocol PRN Reason: RECTAL IRRITATION Last Admin: 11/05/21 20:44 Dose: 1 appl Documented by: Hydroxyzine HCl (Hydroxyzine Hcl 25 Mg Tablet) 25 mg PO BEDTIME PRN PRN Reason: Anxiety Last Admin: 10/20/21 20:35 Dose: 25 mg Documented by: Ibuprofen (Ibuprofen 400 Mg Tablet) 400 mg PO Q6H PRN PRN Reason: Pain, Moderate (Pain Scale 4-6 Last Admin: 11/04/21 21:01 Dose: 400 mg Documented by: Lamotrigine (Lamotrigine 100 Mg Tablet) 200 mg PO BID [facility] Last Admin: 11/05/21 22:38 Dose: Not Given Documented by: Latanoprost (Latanoprost 0.005 % Ophth No 2.5 Ml Drops) 1 drop EYE-BOTH BEDTIME [facility] Last Admin: 11/05/21 20:31 Dose: 1 drop Documented by: Lidocaine (Lidocaine 4 % Patch Adh..Patch) 1 patch TRANSDERMA DAILY [facility]; Protocol Last Admin: 11/05/21 12:38 Dose: Not Given Documented by: Lisinopril (Lisinopril 40 Mg Tablet) 40 mg PO DAILY [facility]; Protocol Last Admin: 11/06/21 06:01 Dose: 40 mg Documented by: Lorazepam (Lorazepam 0.5 Mg Tablet) 0.5 mg PO Q4H PRN PRN Reason: Anxiety Last Admin: 11/04/21 14:17 Dose: 0.5 mg Documented by: Magnesium Hydroxide (Milk Of Magnesia 30 Ml Oral.Susp) 30 ml PO DAILY PRN PRN Reason: Constipation Last Admin: 10/11/21 15:55 Dose: 30 ml Documented by: Magnesium Hydroxide (Milk Of Magnesia 30 Ml Oral.Susp) 30 ml PO Q72H PRN PRN Reason: Constipation Melatonin (Melatonin 3 Mg Tablet) 6 mg PO BEDTIME [facility] Last Admin: 11/05/21 20:34 Dose: 6 mg Documented by: Miconazole Nitrate (Miconazole 2 % Extra Thick Cr 56.7 Gm Tube) 1 appl TOPICAL BID [facility]; Protocol Last Admin: 11/05/21 22:39 Dose: Not Given Documented by: Multivitamins/Vitamin C (Multivitamin Tablet) 1 tab PO DAILY [facility] Last Admin: 11/05/21 09:52 Dose: 1 tab Documented by: Nortriptyline HCl (Nortriptyline Hcl 10 Mg Capsule) 30 mg PO BEDTIME [facility] Last Admin: 11/05/21 20:37 Dose: 30 mg Documented by: Pharmacy Consult (Consult Rx Other Drug Dosing) 1 each MISCELLANE DAILY PRN PRN Reason: Consult order Polyethylene Glycol (Polyethylene Glycol 3350 17 Gm Powd.Pack) 17 gm PO DAILY PRN PRN Reason: Constipation Last Admin: 10/05/21 15:53 Dose: 17 gm Documented by: Polyethylene Glycol (Polyethylene Glycol 3350 17 Gm Powd.Pack) 17 gm PO DAILY@1600 [facility] Last Admin: 11/05/21 20:33 Dose: 17 gm Documented by: Pramipexole Dihydrochloride (Pramipexole Di-Hcl 0.125 Mg Tablet) 0.125 mg PO TID [facility] Last Admin: 11/05/21 20:39 Dose: 0.125 mg Documented by: Quetiapine Fumarate (Quetiapine Fumarate 25 Mg Tablet) 25 mg PO BID PRN PRN Reason: Anxiety Last Admin: 11/05/21 14:48 Dose: 25 mg Documented by: Quetiapine Fumarate (Quetiapine Fumarate 50 Mg Tablet) 50 mg PO BEDTIME [facility] Last Admin: 11/05/21 20:39 Dose: 50 mg Documented by: Trazodone HCl (Trazodone Hcl 50 Mg Tablet) 50 mg PO BEDTIME PRN PRN Reason: Insomnia Last Admin: 10/01/21 23:41 Dose: 50 mg Documented by: Trazodone HCl (Trazodone Hcl 50 Mg Tablet) 150 mg PO BEDTIME [facility] Last Admin: 11/05/21 20:38 Dose: 150 mg Documented by: Vitamin D (Cholecalciferol (Vitamin D3) 10 Mcg Tablet) 20 mcg PO DAILY [facility] Last Admin: 11/05/21 09:51 Dose: 20 mcg Documented by: Vortioxetine (Vortioxetine Hydrobromide 20 Mg Tablet) 20 mg PO DAILY [facility] Last Admin: 11/05/21 09:52 Dose: 20 mg Documented by: Home Medications Medication Instructions Recorded Confirmed Last Taken Type clotrimazole 1 % topical solution See Rx Instructions .ROUTE 05/22/21 10/01/21 Unknown History .COMPLEX PRN dextromethorphan-guaifenesin 10 10 ml PO Q6H PRN 05/22/21 10/01/21 Unknown History mg-200 mg/5 mL oral liquid docusate sodium 100 mg capsule See Rx Instructions .ROUTE 05/22/21 10/01/21 Unknown History .COMPLEX PRN finasteride 5 mg tablet 1 tab PO DAILY 05/22/21 10/01/21 10/01/21 History latanoprost 0.005 % eye drops 1 drp OPHTHALMIC (EYE) BEDTIME 05/22/21 10/01/21 Unknown History magnesium hydroxide 400 mg/5 mL 2,400 mg PO Q72H PRN 05/22/21 10/01/21 Unknown History oral suspension (Milk of Magnesia) melatonin 5 mg tablet 5 mg PO BEDTIME 05/22/21 10/01/21 09/30/21 History cbjdiolmyhjt-gxboclsd-ootvzt tablet 1 tab PO DAILY 05/22/21 10/01/21 10/01/21 History polyethylene glycol 3350 17 17 g PO DAILY PRN 05/22/21 10/01/21 Unknown History gram/dose oral powder polyethylene glycol 3350 17 17 g PO DAILY@1600 05/22/21 10/01/21 Unknown History gram/dose oral powder psyllium husk 0.4 gram capsule 0.4 g PO DAILY 05/22/21 10/01/21 10/01/21 History (Metamucil) trazodone 150 mg tablet 2 tab PO BEDTIME 05/22/21 10/01/21 09/30/21 History acetaminophen 325 mg tablet 650 mg PO Q6H PRN 10/01/21 10/02/21 Unknown History albuterol sulfate 90 mcg/actuation 2 puff INHALATION Q6H PRN 10/01/21 10/01/21 Unknown History aerosol inhaler artifi.tears(hypromellose)(PF) 0.3 1 drp OPHTHALMIC (EYE) Q1H PRN 10/01/21 10/01/21 Unknown History % eye drops brexpiprazole 3 mg tablet (Rexulti) 1 tab PO DAILY 10/01/21 10/01/21 10/01/21 History guaifenesin 200 mg capsule 200 mg PO Q6H PRN 10/01/21 10/01/21 Unknown History hydrocortisone 1 % topical cream 1 appl TOPICAL Q4H PRN 10/01/21 10/01/21 Unknown History lamotrigine 200 mg tablet 1 tab PO BID 10/01/21 10/01/21 10/01/21 History miconazole nitrate 2 % topical 1 appl TOPICAL BID 10/01/21 10/01/21 Unknown History cream mirtazapine 45 mg tablet 1 tab PO BEDTIME 10/01/21 10/01/21 Unknown History quetiapine 25 mg tablet 25 mg PO BID PRN 10/01/21 10/01/21 Unknown History vortioxetine 5 mg tablet 1 tab PO DAILY 10/01/21 10/01/21 10/01/21 History (Trintellix) Exam Exam Date and Time: November 06, 2021 0710 Height,Weight and Vital Signs: Height 6 ft 2 in Weight 113.1 kg Last Vital Signs Temp 98 F 11/06/21 07:06 Pulse 101 H 11/06/21 07:06 Resp 20 11/06/21 07:06 BP 164/92 H 11/06/21 07:06 Pulse Ox 97 11/06/21 07:06 Pertinent Lab Results Pertinent Lab Results: Laboratory Tests 10/01/21 10/01/21 10/01/21 19:18 19:18 20:03 WBC 5.9 RBC 4.34 L Hgb 14.1 Hct 42.1 MCV 97.0 MCH 32.5 MCHC 33.5 RDW 11.7 Plt Count 146 L MPV 10.1 Immature Gran % (Auto) 0.5 H Neut % (Auto) 59.8 Lymph % (Auto) 29.3 Dewitt % (Auto) 4.8 Eos % (Auto) 5.3 H Baso % (Auto) 0.3 Lymph # (Auto) 1.7 [place] # (Auto) 0.3 Eos # (Auto) 0.3 Baso # (Auto) 0.0 Abs Immat Gran (auto) 0.03 Absolute Neuts (auto) 3.5 Absolute Nucleated RBC 0.000 Nucleated RBC % (auto) 0.0 Sodium 139 Potassium 4.3 Chloride 103 Carbon Dioxide 27 Anion Gap 13 BUN 17 H Creatinine 1.06 Estim Creat Clear Calc 90.0 Estimated GFR > 60 Random Glucose 154 H D Estimat Average Glucose Hemoglobin A1c % Calcium 9.3 Total Bilirubin 0.3 AST 27 ALT 43 H Alkaline Phosphatase 72 Total Protein 6.9 Albumin 4.5 25-OH Vitamin D Total 25-Hydroxy Vitamin D2 25-Hydroxy Vitamin D3 Urine Color Urine Appearance Urine pH Ur Specific [place] Urine Protein Urine Glucose (UA) Urine Ketones Urine Blood Urine Nitrite Ur Leukocyte Esterase Urine RBC Urine WBC Ur Squamous Epith Cells Urine Bacteria Hyaline Casts Urine Mucus Urine Opiates Screen Urine Fentanyl Screen Ur Barbiturates Screen Lamotrigine Ur Phencyclidine Scrn Ur Amphetamines Screen U Benzodiazepines Scrn Urine Cocaine Screen U Marijuana (THC) Screen COVID-19 ([facility]) Negative COVID-19 Clin Com See Note Influenza Type A (PCR) Influenza Type B (PCR) RSV RNA Qual (PCR) SARS-CoV-2 RNA (RT-PCR) 10/03/21 10/03/21 10/09/21 05:50 05:50 07:37 WBC RBC Hgb Hct MCV MCH MCHC RDW Plt Count MPV Immature Gran % (Auto) Neut % (Auto) Lymph % (Auto) [place] % (Auto) Eos % (Auto) Baso % (Auto) Lymph # (Auto) [place] # (Auto) Eos # (Auto) Baso # (Auto) Abs Immat Gran (auto) Absolute Neuts (auto) Absolute Nucleated RBC Nucleated RBC % (auto) Sodium Potassium Chloride Carbon Dioxide Anion Gap BUN Creatinine Estim Creat Clear Calc Estimated GFR Random Glucose Estimat Average Glucose Hemoglobin A1c % Calcium Total Bilirubin AST ALT Alkaline Phosphatase Total Protein Albumin 25-OH Vitamin D Total 25 L 25-Hydroxy Vitamin D2 <4 25-Hydroxy Vitamin D3 25 Urine Color YELLOW Urine Appearance CLEAR Urine pH 6.0 Ur Specific [place] 1.015 Urine Protein NEG Urine Glucose (UA) NEG Urine Ketones NEG Urine Blood NEG Urine Nitrite NEG Ur Leukocyte Esterase NEG Urine RBC 0-2 Urine WBC 0 Ur Squamous Epith Cells 2+ Urine Bacteria TRACE Hyaline Casts 5-9 Urine Mucus 2+ Urine Opiates Screen Not Detected Urine Fentanyl Screen Not Detected Ur Barbiturates Screen Not Detected Lamotrigine 7.2 Ur Phencyclidine Scrn Not Detected Ur Amphetamines Screen Not Detected U Benzodiazepines Scrn Not Detected Urine Cocaine Screen Not Detected U Marijuana (THC) Screen Not Detected COVID-19 ([facility]) COVID-19 Clin Com Influenza Type A (PCR) Influenza Type B (PCR) RSV RNA Qual (PCR) SARS-CoV-2 RNA (RT-PCR) 10/15/21 10/15/21 11/04/21 06:42 06:42 21:00 WBC RBC Hgb Hct MCV MCH MCHC RDW Plt Count MPV Immature Gran % (Auto) Neut % (Auto) Lymph % (Auto) [place] % (Auto) Eos % (Auto) Baso % (Auto) Lymph # (Auto) [place] # (Auto) Eos # (Auto) Baso # (Auto) Abs Immat Gran (auto) Absolute Neuts (auto) Absolute Nucleated RBC Nucleated RBC % (auto) Sodium Potassium Chloride Carbon Dioxide Anion Gap BUN Creatinine Estim Creat Clear Calc Estimated GFR Random Glucose Estimat Average Glucose 105 Hemoglobin A1c % 5.3 Calcium Total Bilirubin AST ALT Alkaline Phosphatase Total Protein Albumin 25-OH Vitamin D Total 25-Hydroxy Vitamin D2 25-Hydroxy Vitamin D3 Urine Color Urine Appearance Urine pH Ur Specific [place] Urine Protein Urine Glucose (UA) Urine Ketones Urine Blood Urine Nitrite Ur Leukocyte Esterase Urine RBC Urine WBC Ur Squamous Epith Cells Urine Bacteria Hyaline Casts Urine Mucus Urine Opiates Screen Urine Fentanyl Screen Ur Barbiturates Screen Lamotrigine 8.9 Ur Phencyclidine Scrn Ur Amphetamines Screen U Benzodiazepines Scrn Urine Cocaine Screen U Marijuana (THC) Screen COVID-19 ([facility]) COVID-19 Clin Com Influenza Type A (PCR) NEGATIVE Influenza Type B (PCR) NEGATIVE RSV RNA Qual (PCR) NEGATIVE SARS-CoV-2 RNA (RT-PCR) NEGATIVE Airway Mallampati Class: III TM Dist: >3cm Neck ROM: Full Heart: rrr Lungs: cta Assessment and Plan Assessment Anesthesia Assessment: Anesthesia Plan Discussed and Chart Reviewed Final Anesthetic Review Family History of Problems with Anesthesia: No History of Problems with Anesthesia: No NPO: Yes ASA Class: III Final Preanesthetic Review: No Changes in Pt Med Stat, Meds/Allgs Chart Reviewed and Consent Obtained/Reviewed Patient Risk: Intermediate Procedure Risk: Intermediate Anesthetic Plan Anesthetic Plan: GA Disposition: Standard PACU
--- NOTE | 2021-11-06 07:49 | MHC.SHP ---
Pre-Procedural Eval Section A Date of Service: 11/06/21 Changes since office visit: Yes Changes in Medication and Yes Patient answered all questions; No Cold of Flu in the past 2 weeks and No New Medical Problems The History & Physical has been completed within 30 days and I have reviewed it.: Yes Section B Chief Complaint: MDD SI Allergies: Allergies Allergy/AdvReac Type Severity Reaction Status Date / Time fentanyl [FENTANYL] Allergy Intermediate unknown Verified 05/22/21 11:43 Plan I have reviewed the history and physical and performed a pertinent physical examination on my patient. No changes have occurred unless specified.
--- NOTE | 2021-11-06 07:51 | MHC.SHP ---
Pre-Procedural Eval Section A Date of Service: 11/06/21 Section B Chief Complaint: MDD SI Details of Present Illness: recurrent depression severe Relevant Social History: Alcohol Use (past) Present Medications: see Short Stay Collaborative assessment Medical History: Significant History (htn s/p head injury) Allergies: Allergies Allergy/AdvReac Type Severity Reaction Status Date / Time fentanyl [FENTANYL] Allergy Intermediate unknown Verified 05/22/21 11:43 Review of Systems Sugical H&P ROS: Yes, Specify: Neurological (slowed mentation le weakness) and Genitourinary (redness perianal) Exam Surgical H&P Exam: Normal: Heart and Normal: Lungs and Significant Findings: Neurological (le weakness ) Plan Diagnosis/Plan: Unchanged I have reviewed the history and physical and performed a pertinent physical examination on my patient. No changes have occurred unless specified.
--- NOTE | 2021-11-06 07:54 | HO.ECTPROC ---
ECT Procedure Note Diagnosis/Treatment Date of Service: 11/06/21 Current Treatment Number: 6 Treatment: Series Interval Clinical Notes: pt with ? some improvement no c/o side effects ECT Settings Device: THYMATRON DGx Electrode Placement: Bifrontal Program/Pulse Width: 0.50 Energy Percent: 40 Seizure Duration By EEG (in seconds): 73 Medications Administration General Anesthetic: Etomidate (17) Muscle Relaxant: Succinylcholine (100) Ancillary Medications Analgesics: Torodol - Pre ECT Anti-emetics: Zofran - Pre ECT Cardiovascular Medications: Labetolol (10 mg pre tx ) and Other (rocuronium) Miscillaneous Medications: Propofol Airway Management Airway Management: Bag Mask Ventilation Treatment Recommendations No Changes Recommended: No change Pt Tolerated Procedure w/o Issue: Yes
--- NOTE | 2021-11-06 08:14 | HO.ECTPROC ---
ECT Procedure Note Diagnosis/Treatment Date of Service: 11/06/21 Diagnosis: Major Depressive Disorder Previous ECT Date: 10/30/21 Current Treatment Number: 7 Treatment: Series ECT Settings Device: THYMATRON DGx Electrode Placement: Bifrontal Program/Pulse Width: 0.50 Energy Percent: 40 Seizure Duration By EEG (in seconds): 68 Medications Administration General Anesthetic: Etomidate (17) Muscle Relaxant: Succinylcholine (100) Ancillary Medications Anti-emetics: Zofran - Pre ECT Cardiovascular Medications: Labetolol (10 mg pre tx) and Other (rocuronium) Miscillaneous Medications: Propofol Airway Management Airway Management: Bag Mask Ventilation Treatment Recommendations No Changes Recommended: No change Pt Tolerated Procedure w/o Issue: Yes
[2021-11-06] MEDS: Acetaminophen 325 MG TABLET 650 MG PO ×3 (09:20→21:34)
[2021-11-06] MEDS: Gabapentin 400 MG CAPSULE PO ×3 (09:49→21:21)
[2021-11-06] MEDS: Finasteride 5 MG TABLET PO (09:49)
[2021-11-06] MEDS: Vortioxetine Hydrobromide 20 MG TABLET PO (09:49)
[2021-11-06] MEDS: Pramipexole Di-HCL 0.125 MG TABLET PO ×3 (09:49→21:23)
[2021-11-06] MEDS: Cholecalciferol (Vitamin D3) 10 MCG TABLET 20 MCG PO (09:49)
[2021-11-06] MEDS: lamoTRIgine 100 MG TABLET 200 MG PO ×2 (09:50→21:22)
[2021-11-06] MEDS: Multivitamin TABLET 1 TAB PO (09:50)
[2021-11-06] MEDS: Magnesium Hydrox/Alum Hydrox 30 ML ORAL.SUSP PO (16:22)
[2021-11-06] MEDS: Latanoprost 0.005 % Ophth Sol 2.5 ML DROPS 1 DROP EYE-BOTH (21:18)
[2021-11-06] MEDS: Albuterol Sulfate 90 MCG 8 GM INHALER 2 PUFF INHALE (21:19)
[2021-11-06] MEDS: Melatonin 3 MG TABLET 6 MG PO (21:20)
[2021-11-06] MEDS: traZODone HCL 50 MG TABLET 150 MG PO (21:21)
[2021-11-06] MEDS: Nortriptyline HCl 10 MG CAPSULE 30 MG PO (21:22)
[2021-11-06] MEDS: QUEtiapine Fumarate 50 MG TABLET PO (21:23)
[2021-11-06] MEDS: LORazepam 0.5 MG TABLET PO (21:23)
--- NOTE | 2021-11-06 22:52 | HO.PSYCHPN ---
Subjective Subjective Date of Service: 11/06/21 Reason For Visit: MDD SI Subjective Notes: Conditional Voluntary Guardianship: No Interim History: Patient seen post ECT see CT note appears somewhat improved. GI symptoms most likely from Trintellix check nortriptyline level Medication Compliance: Yes Side effects from medications: Yes Review of Systems Medical Review of Systems: unchanged Mental Status Exam Mental Status Exam Patient Appearance: Well Grooomed Patient Orientation: Person, Place, Time and Situation Level of Consciousness: Awake Patient Behavior: Cooperative Mood Description: Withdrawn and Constricted Affect Description: Constricted Ability to Follow Directions: Good Speech Pattern: Appropriate Memory Description: Intact Hallucinations: None Delusions: Not Present Thought Process: Linear Thought Content: positive for Circumstantial, positive for Suicidal Ideation (Denies active SI) and negative for Homicidal Ideation Judgement: Fair Judgement and Insight: Somewhat improved mood working at trying to change negative thinking patterns Diagnostics Vital Signs (24Hr): Vital Signs - 24 hr 11/06/21 05:56 11/06/21 06:01 11/06/21 06:02 Temperature 98.3 F Pulse Rate 80 80 80 Respiratory Rate 16 Blood Pressure 173/89 H 173/89 H 173/89 H Pulse Oximetry 95 11/06/21 06:34 11/06/21 07:06 11/06/21 08:12 Temperature 98.3 F 98 F 99.4 F Pulse Rate 80 101 H 81 Respiratory Rate 16 20 16 Blood Pressure 173/89 H 164/92 H Pulse Oximetry 95 97 95 11/06/21 08:17 11/06/21 08:22 11/06/21 08:27 Temperature Pulse Rate 82 78 75 Respiratory Rate 16 16 Blood Pressure 169/89 H 158/69 H 153/85 H Pulse Oximetry 95 95 95 11/06/21 08:42 11/06/21 08:56 11/06/21 09:11 Temperature Pulse Rate 75 78 76 Respiratory Rate 16 23 H 20 Blood Pressure 149/84 H 149/79 H 145/81 H Pulse Oximetry 95 94 94 11/06/21 09:25 11/06/21 10:06 11/06/21 10:20 Temperature 99.4 F 97.8 F 97.8 F Pulse Rate 76 78 96 Respiratory Rate 20 16 16 Blood Pressure 137/84 128/77 128/77 Pulse Oximetry 93 94 94 11/06/21 18:00 11/06/21 22:00 Temperature 99.2 F 99.4 F Pulse Rate 77 80 Respiratory Rate 18 16 Blood Pressure 135/68 123/52 L Pulse Oximetry 95 96 BMI result Body Mass Index 32.0 Labs Results: 10/01/21 19:18 10/01/21 19:18 Labs: Laboratory Results - last 48 hr 11/04/21 21:00 Influenza Type A (PCR) NEGATIVE Influenza Type B (PCR) NEGATIVE RSV RNA Qual (PCR) NEGATIVE SARS-CoV-2 RNA (RT-PCR) NEGATIVE Medications Medications Current Medications Acetaminophen (Acetaminophen 325 Mg Tablet) 650 mg PO Q6H PRN PRN Reason: Pain (Scale Score 1-3) Last Admin: 11/06/21 21:34 Dose: 650 mg Documented by: Al Hydroxide/Mg Hydroxide (Magnesium Hydrox/Alum Hydrox 30 Ml Oral.Susp) 30 ml PO Q6H PRN PRN Reason: Heartburn/Nausea Last Admin: 11/06/21 16:22 Dose: 30 ml Documented by: Albuterol Sulfate (Albuterol Sulfate 90 Mcg 8 Gm Inhaler) 2 puff INHALE Q6H PRN PRN Reason: Shortness Of Breath Last Admin: 11/06/21 21:19 Dose: 2 puff Documented by: Amlodipine Besylate (Amlodipine Besylate 10 Mg Tablet) 10 mg PO DAILY [facility]; Protocol Last Admin: 11/06/21 06:02 Dose: 10 mg Documented by: Artificial Tears (Artificial Tears 15 Ml Drops) 1 drop EYE-BOTH Q1H PRN PRN Reason: Dry Eye(S) Last Admin: 10/12/21 14:13 Dose: 1 drop Documented by: Docusate Sodium (Docusate Sodium 100 Mg Capsule) 100 mg PO BEDTIME PRN PRN Reason: Constipation Last Admin: 11/03/21 19:56 Dose: 100 mg Documented by: Docusate Sodium (Docusate Sodium 100 Mg Capsule) 100 mg PO BID PRN PRN Reason: Constipation Last Admin: 10/19/21 09:38 Dose: 100 mg Documented by: Famotidine (Famotidine 20 Mg Tablet) 20 mg PO BID@0700,1730 [facility] Last Admin: 11/06/21 17:05 Dose: Not Given Documented by: Finasteride (Finasteride 5 Mg Tablet) 5 mg PO DAILY [facility] Last Admin: 11/06/21 09:49 Dose: 5 mg Documented by: Gabapentin (Gabapentin 400 Mg Capsule) 400 mg PO TID [facility] Last Admin: 11/06/21 21:21 Dose: 400 mg Documented by: Hydrocortisone (Hydrocortisone 1 % Cream 28.35 Gm Tube) 1 appl TOPICAL Q4H PRN; Protocol PRN Reason: RECTAL IRRITATION Last Admin: 11/05/21 20:44 Dose: 1 appl Documented by: Hydroxyzine HCl (Hydroxyzine Hcl 25 Mg Tablet) 25 mg PO BEDTIME PRN PRN Reason: Anxiety Last Admin: 10/20/21 20:35 Dose: 25 mg Documented by: Ibuprofen (Ibuprofen 400 Mg Tablet) 400 mg PO Q6H PRN PRN Reason: Pain, Moderate (Pain Scale 4-6 Last Admin: 11/04/21 21:01 Dose: 400 mg Documented by: Lamotrigine (Lamotrigine 100 Mg Tablet) 200 mg PO BID [facility] Last Admin: 11/06/21 21:22 Dose: 200 mg Documented by: Latanoprost (Latanoprost 0.005 % Ophth No 2.5 Ml Drops) 1 drop EYE-BOTH BEDTIME [facility] Last Admin: 11/06/21 21:18 Dose: 1 drop Documented by: Lidocaine (Lidocaine 4 % Patch Adh..Patch) 1 patch TRANSDERMA DAILY [facility]; Protocol Last Admin: 11/06/21 09:50 Dose: Not Given Documented by: Lisinopril (Lisinopril 40 Mg Tablet) 40 mg PO DAILY [facility]; Protocol Last Admin: 11/06/21 06:01 Dose: 40 mg Documented by: Lorazepam (Lorazepam 0.5 Mg Tablet) 0.5 mg PO Q4H PRN PRN Reason: Anxiety Last Admin: 11/06/21 21:23 Dose: 0.5 mg Documented by: Magnesium Hydroxide (Milk Of Magnesia 30 Ml Oral.Susp) 30 ml PO DAILY PRN PRN Reason: Constipation Last Admin: 10/11/21 15:55 Dose: 30 ml Documented by: Magnesium Hydroxide (Milk Of Magnesia 30 Ml Oral.Susp) 30 ml PO Q72H PRN PRN Reason: Constipation Melatonin (Melatonin 3 Mg Tablet) 6 mg PO BEDTIME [facility] Last Admin: 11/06/21 21:20 Dose: 6 mg Documented by: Miconazole Nitrate (Miconazole 2 % Extra Thick Cr 56.7 Gm Tube) 1 appl TOPICAL BID [facility]; Protocol Last Admin: 11/06/21 22:02 Dose: Not Given Documented by: Multivitamins/Vitamin C (Multivitamin Tablet) 1 tab PO DAILY [facility] Last Admin: 11/06/21 09:50 Dose: 1 tab Documented by: Nortriptyline HCl (Nortriptyline Hcl 10 Mg Capsule) 30 mg PO BEDTIME [facility] Last Admin: 11/06/21 21:22 Dose: 20 mg Documented by: Pharmacy Consult (Consult Rx Other Drug Dosing) 1 each MISCELLANE DAILY PRN PRN Reason: Consult order Polyethylene Glycol (Polyethylene Glycol 3350 17 Gm Powd.Pack) 17 gm PO DAILY PRN PRN Reason: Constipation Last Admin: 10/05/21 15:53 Dose: 17 gm Documented by: Polyethylene Glycol (Polyethylene Glycol 3350 17 Gm Powd.Pack) 17 gm PO DAILY@1600 [facility] Last Admin: 11/05/21 20:33 Dose: 17 gm Documented by: Pramipexole Dihydrochloride (Pramipexole Di-Hcl 0.125 Mg Tablet) 0.125 mg PO TID [facility] Last Admin: 11/06/21 21:23 Dose: 0.125 mg Documented by: Quetiapine Fumarate (Quetiapine Fumarate 25 Mg Tablet) 25 mg PO BID PRN PRN Reason: Anxiety Last Admin: 11/05/21 14:48 Dose: 25 mg Documented by: Quetiapine Fumarate (Quetiapine Fumarate 50 Mg Tablet) 50 mg PO BEDTIME [facility] Last Admin: 11/06/21 21:23 Dose: 50 mg Documented by: Trazodone HCl (Trazodone Hcl 50 Mg Tablet) 50 mg PO BEDTIME PRN PRN Reason: Insomnia Last Admin: 10/01/21 23:41 Dose: 50 mg Documented by: Trazodone HCl (Trazodone Hcl 50 Mg Tablet) 150 mg PO BEDTIME [facility] Last Admin: 11/06/21 21:21 Dose: 150 mg Documented by: Vitamin D (Cholecalciferol (Vitamin D3) 10 Mcg Tablet) 20 mcg PO DAILY [facility] Last Admin: 11/06/21 09:49 Dose: 20 mcg Documented by: Vortioxetine (Vortioxetine Hydrobromide 20 Mg Tablet) 20 mg PO DAILY [facility] Last Admin: 11/06/21 09:49 Dose: 20 mg Documented by: Allergies Allergies Allergy/AdvReac Type Severity Reaction Status Date / Time fentanyl [FENTANYL] Allergy Intermediate unknown Verified 05/22/21 11:43 Assessment & Plan Assessment & Plan (1) Depression: Status: Acute Code(s): F32.A - Depression, unspecified Assessment and Plan: The patient is an elderly male with a long history of major depressive disorder and TBI, admitted before, very well known by the service.? He has been admitted for exacerbation of depression with suicidal ideation without a clear stressor.? Historically, the patient responds to ECT. 10/21/21: Endorsing SI, hoplessness and depression. Will discus with team 10/21 ref mental state +/- modifying treatment/dispo planning. Discharge on hold consider ECT would clearly benefit from outpatient therapy which has been hard to arrange patient not to logical would benefit best from and person treatment. 10/22/2021 Patient continues depressed intermittently hopeless helpless despondent. May do better with intermittent ECT than 3 times a week consider dopamine agonist 10/24/21 evaluate ect 10/26: pt reports feeling very hopeless/helpless, passive SI, denies plan or intent. anxious mood, reports ativan helpful. Looking forward to have ECT on Thursday. no medication changes. 10/27: continues to present as very hopeless/helpless, passive SI, no plan or intent. pt reports heartburn, added pepcid 20mg po BID. stop remeron start nortriptyline mirapex patient quite anxious ruminating given education regarding CBT Continue Seroquel 11/05/2021 Continue Seroquel 50 at bedtime nortriptyline at HS check nortriptyline level ECT scheduled would benefit from ongoing physical activity 11/06/2021 Evaluate response to ECT check nortriptyline level continue Seroquel continue Mirapex (2) HTN (hypertension): Status: Acute Code(s): I10 - Essential (primary) hypertension Assessment and Plan: cont tx plan I spent minutes with the patient and/or on the patient floor today, greater than?50% of which was spent counseling/coordinating care. Reason for contiued inpatient stay Substantial Risk for: harm to self and rapid decompensation
[2021-11-07] MEDS: Ibuprofen 400 MG TABLET PO (03:15)
[2021-11-07] MEDS: LORazepam 0.5 MG TABLET PO ×2 (03:23→20:49)
[2021-11-07] MEDS: Finasteride 5 MG TABLET PO (10:03)
[2021-11-07] MEDS: Gabapentin 400 MG CAPSULE PO ×3 (10:03→20:49)
[2021-11-07 10:04] VITALS: BP 149/74; PULSE 98
[2021-11-07] MEDS: Multivitamin TABLET 1 TAB PO (10:04)
[2021-11-07] MEDS: lisinopriL 40 MG TABLET PO (10:04)
[2021-11-07] MEDS: amLODIPine Besylate 10 MG TABLET PO (10:04)
[2021-11-07] MEDS: Cholecalciferol (Vitamin D3) 10 MCG TABLET 20 MCG PO (10:05)
[2021-11-07] MEDS: lamoTRIgine 100 MG TABLET 200 MG PO ×2 (10:05→20:46)
[2021-11-07] MEDS: Pramipexole Di-HCL 0.125 MG TABLET PO ×3 (10:10→20:48)
[2021-11-07] MEDS: Acetaminophen 325 MG TABLET 650 MG PO (12:57)
[2021-11-07 14:06] LABS: COVID-19 Test Negative (Negative); IDNOW Serial# 9DD0AD1C
--- NOTE | 2021-11-07 16:34 | P.PNPSI_ITS ---
Subjective Subjective Date of Service: 11/07/21 Reason For Visit: MDD SI Subjective Notes: Conditional Voluntary Interim History: Patient with some improvement he was open to a further ECT treatment prior to discharge but will consider. Concerned about abdominal di scomfort with Trintellix discussed lowering to 10 mg no complaints of side effects on nortriptyline Seroquel at bedtime continues with depression and anxiety symptoms Medication Compliance: Yes Review of Systems Review of Systems Yes all other systems are reviewed and are negative Mental Status Exam Mental Status Exam Patient Appearance: Well Grooomed Patient Orientation: Person, Place, Time and Situation Level of Consciousness: Awake Patient Behavior: Cooperative Mood Description: Withdrawn, Constricted, Depressed, Anxious and Apprehensive Affect Description: Constricted, Depressed and Apprehensive Ability to Follow Directions: Good Speech Pattern: Appropriate Memory Description: Intact Hallucinations: None Delusions: Not Present Thought Process: Linear Thought Content: positive for Circumstantial, positive for Suicidal Ideation (Denies active SI) and negative for Homicidal Ideation Judgement: Fair Judgement and Insight: Somewhat improved mood working at trying to change neg ative thinking patterns Diagnostics Vital Signs (24Hr): Vital Signs - 24 hr 11/06/21 18:00 11/06/21 22:00 11/07/21 10:04 Temperature 99.2 F 99.4 F Pulse Rate 77 80 98 Respiratory Rate 18 16 Blood Pressure 135/68 123/52 L 149/74 H Pulse Oximetry 95 96 BMI result Body Mass Index 32.0 Labs Results: 10/01/21 19:18 10/01/21 19:18 Labs: Laboratory Results - last 48 hr 11/07/21 11:25 COVID-19 ([facility]) Negative COVID-19 Clin Com See Note Medications Medications Current Medications Acetaminophen (Acetaminophen 325 Mg Tablet) 650 mg PO Q6H PRN PRN Reason: Pain (Scale Score 1-3) Last Admin: 11/07/21 12:57 Dose: 650 mg Documented by: Al Hydroxide/Mg Hydroxide (Magnesium Hydrox/Alum Hydrox 30 Ml Oral.Susp) 30 ml PO Q6H PRN PRN Reason: Heartburn/Nausea Last Admin: 11/06/21 16:22 Dose: 30 ml Documented by: Albuterol Sulfate (Albuterol Sulfate 90 Mcg 8 Gm Inhaler) 2 puff INHALE Q6H PRN PRN Reason: Shortness Of Breath Last Admin: 11/06/21 21:19 Dose: 2 puff Documented by: Amlodipine Besylate (Amlodipine Besylate 10 Mg Tablet) 10 mg PO DAILY [facility]; Protocol Last Admin: 11/07/21 10:04 Dose: 10 mg Documented by: Artificial Tears (Artificial Tears 15 Ml Drops) 1 drop EYE-BOTH Q1H PRN PRN Reason: Dry Eye(S) Last Admin: 10/12/21 14:13 Dose: 1 drop Documented by: Docusate Sodium (Docusate Sodium 100 Mg Capsule) 100 mg PO BEDTIME PRN PRN Reason: Constipation Last Admin: 11/03/21 19:56 Dose: 100 mg Documented by: Docusate Sodium (Docusate Sodium 100 Mg Capsule) 100 mg PO BID PRN PRN Reason: Constipation Last Admin: 10/19/21 09:38 Dose: 100 mg Documented by: Famotidine (Famotidine 20 Mg Tablet) 20 mg PO BID@0700,1730 [facility] Last Admin: 11/07/21 06:57 Dose: Not Given Documented by: Finasteride (Finasteride 5 Mg Tablet) 5 mg PO DAILY [facility] Last Admin: 11/07/21 10:03 Dose: 5 mg Documented by: Gabapentin (Gabapentin 400 Mg Capsule) 400 mg PO TID [facility] Last Admin: 11/07/21 15:57 Dose: 400 mg Documented by: Hydrocortisone (Hydrocortisone 1 % Cream 28.35 Gm Tube) 1 appl TOPICAL Q4H PRN; Protocol PRN Reason: RECTAL IRRITATION Last Admin: 11/05/21 20:44 Dose: 1 appl Documented by: Hydroxyzine HCl (Hydroxyzine Hcl 25 Mg Tablet) 25 mg PO BEDTIME PRN PRN Reason: Anxiety Last Admin: 10/20/21 20:35 Dose: 25 mg Documented by: Ibuprofen (Ibuprofen 400 Mg Tablet) 400 mg PO Q6H PRN PRN Reason: Pain, Moderate (Pain Scale 4-6 Last Admin: 11/07/21 03:15 Dose: 400 mg Documented by: Lamotrigine (Lamotrigine 100 Mg Tablet) 200 mg PO BID [facility] Last Admin: 11/07/21 10:05 Dose: 200 mg Documented by: Latanoprost (Latanoprost 0.005 % Ophth No 2.5 Ml Drops) 1 drop EYE-BOTH BEDTIME [facility] Last Admin: 11/06/21 21:18 Dose: 1 drop Documented by: Lidocaine (Lidocaine 4 % Patch Adh..Patch) 1 patch TRANSDERMA DAILY [facility]; Protocol Last Admin: 11/07/21 10:56 Dose: Not Given Documented by: Lisinopril (Lisinopril 40 Mg Tablet) 40 mg PO DAILY [facility]; Protocol Last Admin: 11/07/21 10:04 Dose: 40 mg Documented by: Lorazepam (Lorazepam 0.5 Mg Tablet) 0.5 mg PO Q4H PRN PRN Reason: Anxiety Last Admin: 11/07/21 03:23 Dose: 0.5 mg Documented by: Magnesium Hydroxide (Milk Of Magnesia 30 Ml Oral.Susp) 30 ml PO DAILY PRN PRN Reason: Constipation Last Admin: 10/11/21 15:55 Dose: 30 ml Documented by: Magnesium Hydroxide (Milk Of Magnesia 30 Ml Oral.Susp) 30 ml PO Q72H PRN PRN Reason: Constipation Melatonin (Melatonin 3 Mg Tablet) 6 mg PO BEDTIME [facility] Last Admin: 11/06/21 21:20 Dose: 6 mg Documented by: Miconazole Nitrate (Miconazole 2 % Extra Thick Cr 56.7 Gm Tube) 1 appl TOPICAL BID [facility]; Protocol Last Admin: 11/07/21 10:57 Dose: Not Given Documented by: Multivitamins/Vitamin C (Multivitamin Tablet) 1 tab PO DAILY [facility] Last Admin: 11/07/21 10:04 Dose: 1 tab Documented by: Nortriptyline HCl (Nortriptyline Hcl 10 Mg Capsule) 30 mg PO BEDTIME [facility] Last Admin: 11/06/21 21:22 Dose: 30 mg Documented by: Pharmacy Consult (Consult Rx Other Drug Dosing) 1 each MISCELLANE DAILY PRN PRN Reason: Consult order Polyethylene Glycol (Polyethylene Glycol 3350 17 Gm Powd.Pack) 17 gm PO DAILY PRN PRN Reason: Constipation Last Admin: 10/05/21 15:53 Dose: 17 gm Documented by: Polyethylene Glycol (Polyethylene Glycol 3350 17 Gm Powd.Pack) 17 gm PO DAILY@1600 [facility] Last Admin: 11/05/21 20:33 Dose: 17 gm Documented by: Pramipexole Dihydrochloride (Pramipexole Di-Hcl 0.125 Mg Tablet) 0.125 mg PO TID [facility] Last Admin: 11/07/21 15:57 Dose: 0.125 mg Documented by: Quetiapine Fumarate (Quetiapine Fumarate 25 Mg Tablet) 25 mg PO BID PRN PRN Reason: Anxiety Last Admin: 11/05/21 14:48 Dose: 25 mg Documented by: Quetiapine Fumarate (Quetiapine Fumarate 50 Mg Tablet) 50 mg PO BEDTIME [facility] Last Admin: 11/06/21 21:23 Dose: 50 mg Documented by: Trazodone HCl (Trazodone Hcl 50 Mg Tablet) 50 mg PO BEDTIME PRN PRN Reason: Insomnia Last Admin: 10/01/21 23:41 Dose: 50 mg Documented by: Trazodone HCl (Trazodone Hcl 50 Mg Tablet) 150 mg PO BEDTIME [facility] Last Admin: 11/06/21 21:21 Dose: 150 mg Documented by: Vitamin D (Cholecalciferol (Vitamin D3) 10 Mcg Tablet) 20 mcg PO DAILY [facility] Last Admin: 11/07/21 10:05 Dose: 20 mcg Documented by: Vortioxetine (Vortioxetine Hydrobromide 10 Mg Tablet) 10 mg PO DAILY@1700 [facility] Allergies Allergies Allergy/AdvReac Type Severity Reaction Status Date / Time fentanyl [FENTANYL] Allergy Intermediate unknown Verified 05/22/21 11:43 Assessment & Plan Assessment & Plan (1) Depression: Status: Acute Code(s): F32.A - Depression, unspecified Assessment and Plan: The patient is an elderly male with a long history of major depressive disorder and TBI, admitted before, very well known by the service.? He has been admitted for exacerbation of depression with suicidal ideation without a clear stressor.? Historically, the patient responds to ECT. 10/21/21: Endorsing SI, hoplessness and depression. Will discus with team 10/21 ref mental state +/- modifying treatment/dispo planning. Discharge on hold consider ECT would clearly benefit from outpatient therapy which has been hard to arrange patient not to logical would benefit best from and person treatment. 10/22/2021 Patient continues depressed intermittently hopeless helpless despondent. May do better with intermittent ECT than 3 times a week consider dopamine agonist 10/24/21 evaluate ect 10/26: pt reports feeling very hopeless/helpless, passive SI, denies plan or intent. anxious mood, reports ativan helpful. Looking forward to have ECT on Thursday. no medication changes. 10/27: continues to present as very hopeless/helpless, passive SI, no plan or intent. pt reports heartburn, added pepcid 20mg po BID. stop remeron start nortriptyline mirapex patient quite anxious ruminating given education regarding CBT Continue Seroquel 11/05/2021 Continue Seroquel 50 at bedtime nortriptyline at HS check nortriptyline level ECT scheduled would benefit from ongoing physical activity 11/06/2021 Evaluate response to ECT check nortriptyline level continue Seroquel continue Mirapex 11/07/2021 Patient anxious dysphoric encourage ongoing cognitive and supportive strategies in addition to biological once. He additional ECT scheduled check nortriptyline level lower Trintellix secondary to GI side effects (2) HTN (hypertension): Status: Acute Code(s): I10 - Essential (primary) hypertension Assessment and Plan: cont tx plan I spent minutes with the patient and/or on the patient floor today, greater than?50% of which was spent counseling/coordinating care. Reason for contiued inpatient stay Substantial Risk for: harm to self and inability to function
[2021-11-07 20:30] VITALS: BP 158/79; PULSE 84; RESP 20; TEMP 36.5; O2SAT 96
[2021-11-07] MEDS: Albuterol Sulfate 90 MCG 8 GM INHALER 2 PUFF INHALE (20:45)
[2021-11-07] MEDS: Latanoprost 0.005 % Ophth Sol 2.5 ML DROPS 1 DROP EYE-BOTH (20:45)
[2021-11-07] MEDS: Melatonin 3 MG TABLET 6 MG PO (20:46)
[2021-11-07] MEDS: Nortriptyline HCl 10 MG CAPSULE 30 MG PO (20:47)
[2021-11-07] MEDS: QUEtiapine Fumarate 50 MG TABLET PO (20:48)
[2021-11-07] MEDS: traZODone HCL 50 MG TABLET 150 MG PO (20:49)
[2021-11-08 06:00] VITALS: BP 160/84; PULSE 84; RESP 16; TEMP 36.5; O2SAT 95
[2021-11-08] MEDS: lamoTRIgine 100 MG TABLET 200 MG PO ×2 (08:20→21:32)
[2021-11-08] MEDS: Multivitamin TABLET 1 TAB PO (08:20)
[2021-11-08] MEDS: Pramipexole Di-HCL 0.125 MG TABLET PO ×3 (08:20→21:31)
[2021-11-08] MEDS: Gabapentin 400 MG CAPSULE PO ×3 (08:20→21:33)
[2021-11-08] MEDS: Cholecalciferol (Vitamin D3) 10 MCG TABLET 20 MCG PO (08:20)
[2021-11-08 08:21] VITALS: BP 160/84; PULSE 84
[2021-11-08] MEDS: amLODIPine Besylate 10 MG TABLET PO (08:21)
[2021-11-08] MEDS: lisinopriL 40 MG TABLET PO (08:21)
[2021-11-08] MEDS: Finasteride 5 MG TABLET PO (08:21)
[2021-11-08] MEDS: Acetaminophen 325 MG TABLET 650 MG PO (09:26)
--- NOTE | 2021-11-08 10:47 | P.PNPSI_ITS ---
Subjective Subjective Date of Service: 11/08/21 Reason For Visit: MDD SI Subjective Notes: Conditional Voluntary Interim History: Patient was seen and discussed in rounds today. Records were reviewed. He has been undergoing ECT treatment but would like to stop as of Thursday. He would like to discuss this with Dr. Haskins prior to the next treatment on Thursday. He has been mostly compliant and has no complaints or side effects. Eating and sleeping adequately. No changes were made today Review of Systems Review of Systems Yes all other systems are reviewed and are negative Diagnostics Vital Signs (24Hr): Vital Signs - 24 hr 11/07/21 20:30 11/08/21 08:21 Temperature 97.7 F Pulse Rate 84 84 Respiratory Rate 20 Blood Pressure 158/79 H 160/84 H Pulse Oximetry 96 BMI result Body Mass Index 32.0 Labs Results: 10/01/21 19:18 10/01/21 19:18 Labs: Laboratory Results - last 48 hr 11/07/21 11:25 COVID-19 ([facility]) Negative COVID-19 Clin Com See Note Medications Medications Current Medications Acetaminophen (Acetaminophen 325 Mg Tablet) 650 mg PO Q6H PRN PRN Reason: Pain (Scale Score 1-3) Last Admin: 11/08/21 09:26 Dose: 650 mg Documented by: Al Hydroxide/Mg Hydroxide (Magnesium Hydrox/Alum Hydrox 30 Ml Oral.Susp) 30 ml PO Q6H PRN PRN Reason: Heartburn/Nausea Last Admin: 11/06/21 16:22 Dose: 30 ml Documented by: Albuterol Sulfate (Albuterol Sulfate 90 Mcg 8 Gm Inhaler) 2 puff INHALE Q6H PRN PRN Reason: Shortness Of Breath Last Admin: 11/07/21 20:45 Dose: 2 puff Documented by: Amlodipine Besylate (Amlodipine Besylate 10 Mg Tablet) 10 mg PO DAILY [facility]; Protocol Last Admin: 11/08/21 08:21 Dose: 10 mg Documented by: Artificial Tears (Artificial Tears 15 Ml Drops) 1 drop EYE-BOTH Q1H PRN PRN Reason: Dry Eye(S) Last Admin: 10/12/21 14:13 Dose: 1 drop Documented by: Docusate Sodium (Docusate Sodium 100 Mg Capsule) 100 mg PO BEDTIME PRN PRN Reason: Constipation Last Admin: 11/03/21 19:56 Dose: 100 mg Documented by: Docusate Sodium (Docusate Sodium 100 Mg Capsule) 100 mg PO BID PRN PRN Reason: Constipation Last Admin: 10/19/21 09:38 Dose: 100 mg Documented by: Famotidine (Famotidine 20 Mg Tablet) 20 mg PO BID@0700,1730 [facility] Last Admin: 11/08/21 08:21 Dose: Not Given Documented by: Finasteride (Finasteride 5 Mg Tablet) 5 mg PO DAILY [facility] Last Admin: 11/08/21 08:21 Dose: 5 mg Documented by: Gabapentin (Gabapentin 400 Mg Capsule) 400 mg PO TID [facility] Last Admin: 11/08/21 08:20 Dose: 400 mg Documented by: Hydrocortisone (Hydrocortisone 1 % Cream 28.35 Gm Tube) 1 appl TOPICAL Q4H PRN; Protocol PRN Reason: RECTAL IRRITATION Last Admin: 11/05/21 20:44 Dose: 1 appl Documented by: Hydroxyzine HCl (Hydroxyzine Hcl 25 Mg Tablet) 25 mg PO BEDTIME PRN PRN Reason: Anxiety Last Admin: 10/20/21 20:35 Dose: 25 mg Documented by: Ibuprofen (Ibuprofen 400 Mg Tablet) 400 mg PO Q6H PRN PRN Reason: Pain, Moderate (Pain Scale 4-6 Last Admin: 11/07/21 03:15 Dose: 400 mg Documented by: Lamotrigine (Lamotrigine 100 Mg Tablet) 200 mg PO BID [facility] Last Admin: 11/08/21 08:20 Dose: 200 mg Documented by: Latanoprost (Latanoprost 0.005 % Ophth No 2.5 Ml Drops) 1 drop EYE-BOTH BEDTIME [facility] Last Admin: 11/07/21 20:45 Dose: 1 drop Documented by: Lidocaine (Lidocaine 4 % Patch Adh..Patch) 1 patch TRANSDERMA DAILY [facility]; Protocol Last Admin: 11/07/21 10:56 Dose: Not Given Documented by: Lisinopril (Lisinopril 40 Mg Tablet) 40 mg PO DAILY [facility]; Protocol Last Admin: 11/08/21 08:21 Dose: 40 mg Documented by: Lorazepam (Lorazepam 0.5 Mg Tablet) 0.5 mg PO Q4H PRN PRN Reason: Anxiety Last Admin: 11/07/21 20:49 Dose: 0.5 mg Documented by: Magnesium Hydroxide (Milk Of Magnesia 30 Ml Oral.Susp) 30 ml PO DAILY PRN PRN Reason: Constipation Last Admin: 10/11/21 15:55 Dose: 30 ml Documented by: Magnesium Hydroxide (Milk Of Magnesia 30 Ml Oral.Susp) 30 ml PO Q72H PRN PRN Reason: Constipation Melatonin (Melatonin 3 Mg Tablet) 6 mg PO BEDTIME [facility] Last Admin: 11/07/21 20:46 Dose: 6 mg Documented by: Miconazole Nitrate (Miconazole 2 % Extra Thick Cr 56.7 Gm Tube) 1 appl TOPICAL BID [facility]; Protocol Last Admin: 11/07/21 20:51 Dose: Not Given Documented by: Multivitamins/Vitamin C (Multivitamin Tablet) 1 tab PO DAILY [facility] Last Admin: 11/08/21 08:20 Dose: 1 tab Documented by: Nortriptyline HCl (Nortriptyline Hcl 10 Mg Capsule) 30 mg PO BEDTIME [facility] Last Admin: 11/07/21 20:47 Dose: 30 mg Documented by: Pharmacy Consult (Consult Rx Other Drug Dosing) 1 each MISCELLANE DAILY PRN PRN Reason: Consult order Polyethylene Glycol (Polyethylene Glycol 3350 17 Gm Powd.Pack) 17 gm PO DAILY PRN PRN Reason: Constipation Last Admin: 10/05/21 15:53 Dose: 17 gm Documented by: Polyethylene Glycol (Polyethylene Glycol 3350 17 Gm Powd.Pack) 17 gm PO DAILY@1600 [facility] Last Admin: 11/07/21 18:40 Dose: Not Given Documented by: Pramipexole Dihydrochloride (Pramipexole Di-Hcl 0.125 Mg Tablet) 0.125 mg PO TID [facility] Last Admin: 11/08/21 08:20 Dose: 0.125 mg Documented by: Quetiapine Fumarate (Quetiapine Fumarate 25 Mg Tablet) 25 mg PO BID PRN PRN Reason: Anxiety Last Admin: 11/05/21 14:48 Dose: 25 mg Documented by: Quetiapine Fumarate (Quetiapine Fumarate 50 Mg Tablet) 50 mg PO BEDTIME [facility] Last Admin: 11/07/21 20:48 Dose: 50 mg Documented by: Trazodone HCl (Trazodone Hcl 50 Mg Tablet) 50 mg PO BEDTIME PRN PRN Reason: Insomnia Last Admin: 10/01/21 23:41 Dose: 50 mg Documented by: Trazodone HCl (Trazodone Hcl 50 Mg Tablet) 150 mg PO BEDTIME [facility] Last Admin: 11/07/21 20:49 Dose: 150 mg Documented by: Vitamin D (Cholecalciferol (Vitamin D3) 10 Mcg Tablet) 20 mcg PO DAILY [facility] Last Admin: 11/08/21 08:20 Dose: 20 mcg Documented by: Vortioxetine (Vortioxetine Hydrobromide 10 Mg Tablet) 10 mg PO DAILY@1700 [facility] Last Admin: 11/07/21 18:40 Dose: Not Given Documented by: Allergies Allergies Allergy/AdvReac Type Severity Reaction Status Date / Time fentanyl [FENTANYL] Allergy Intermediate unknown Verified 05/22/21 11:43 Assessment & Plan Assessment & Plan (1) Depression: Status: Acute Code(s): F32.A - Depression, unspecified Assessment and Plan: The patient is an elderly male with a long history of major depressive disorder and TBI, admitted before, very well known by the service.? He has been admitted for exacerbation of depression with suicidal ideation without a clear stressor.? Historically, the patient responds to ECT. 10/21/21: Endorsing SI, hoplessness and depression. Will discus with team 10/21 ref mental state +/- modifying treatment/dispo planning. Discharge on hold consider ECT would clearly benefit from outpatient therapy which has been hard to arrange patient not to logical would benefit best from and person treatment. 10/22/2021 Patient continues depressed intermittently hopeless helpless despondent. May do better with intermittent ECT than 3 times a week consider dopamine agonist 10/24/21 evaluate ect 10/26: pt reports feeling very hopeless/helpless, passive SI, denies plan or intent. anxious mood, reports ativan helpful. Looking forward to have ECT on Thursday. no medication changes. 10/27: continues to present as very hopeless/helpless, passive SI, no plan or intent. pt reports heartburn, added pepcid 20mg po BID. stop remeron start nortriptyline mirapex patient quite anxious ruminating given education regarding CBT Continue Seroquel 11/05/2021 Continue Seroquel 50 at bedtime nortriptyline at HS check nortriptyline level ECT scheduled would benefit from ongoing physical activity 11/06/2021 Evaluate response to ECT check nortriptyline level continue Seroquel continue Mirapex 11/07/2021 Patient anxious dysphoric encourage ongoing cognitive and supportive strategies in addition to biological once. He additional ECT scheduled check nortriptyline level lower Trintellix secondary to GI side effects 11/08: Continue current plans and discuss continuation of the CT with Dr. Haskins on Thursday of next week (2) HTN (hypertension): Status: Acute Code(s): I10 - Essential (primary) hypertension Assessment and Plan: cont tx plan I spent minutes with the patient and/or on the patient floor today, greater than?50% of which was spent counseling/coordinating care. Reason for contiued inpatient stay Substantial Risk for: other
[2021-11-08] MEDS: LORazepam 0.5 MG TABLET PO ×2 (16:14→21:33)
[2021-11-08] MEDS: Vortioxetine Hydrobromide 10 MG TABLET PO (16:14)
[2021-11-08 20:31] VITALS: BP 144/92; PULSE 83; RESP 18; TEMP 36.8; O2SAT 95
[2021-11-08] MEDS: Miconazole 2 % Extra Thick Cr 56.7 Gm Tube 1 APPL TOPICAL (21:30)
[2021-11-08] MEDS: Latanoprost 0.005 % Ophth Sol 2.5 ML DROPS 1 DROP EYE-BOTH (21:30)
[2021-11-08] MEDS: Melatonin 3 MG TABLET 6 MG PO (21:30)
[2021-11-08] MEDS: Nortriptyline HCl 10 MG CAPSULE 30 MG PO (21:31)
[2021-11-08] MEDS: QUEtiapine Fumarate 50 MG TABLET PO (21:33)
[2021-11-08] MEDS: traZODone HCL 50 MG TABLET 150 MG PO (21:33)
[2021-11-09 06:00] VITALS: BP 160/85; PULSE 86; TEMP 36.6; O2SAT 95
[2021-11-09 09:56] VITALS: BP 160/85; PULSE 86
[2021-11-09] MEDS: amLODIPine Besylate 10 MG TABLET PO (09:56)
[2021-11-09] MEDS: Pramipexole Di-HCL 0.125 MG TABLET PO ×3 (09:56→20:41)
[2021-11-09] MEDS: Cholecalciferol (Vitamin D3) 10 MCG TABLET 20 MCG PO (09:56)
[2021-11-09 09:57] VITALS: BP 160/85; PULSE 86
[2021-11-09] MEDS: Finasteride 5 MG TABLET PO (09:57)
[2021-11-09] MEDS: Multivitamin TABLET 1 TAB PO (09:57)
[2021-11-09] MEDS: lisinopriL 40 MG TABLET PO (09:57)
[2021-11-09] MEDS: lamoTRIgine 100 MG TABLET 200 MG PO ×2 (09:57→20:41)
[2021-11-09] MEDS: Gabapentin 400 MG CAPSULE PO ×3 (09:57→20:43)
--- NOTE | 2021-11-09 09:58 | P.PNPSI_ITS ---
Subjective Subjective Date of Service: 11/09/21 Reason For Visit: MDD SI Subjective Notes: Conditional Voluntary Interim History: Patient was seen and discussed in rounds today. He has been stable and continues to be doing better. He again brought up the issue of not wanting to receive his next ECT treatment on Thursday. I reassured him that I have made a notation of this for Dr. Haskins to see. Eating and sleeping adequately. No other complaints or difficulties. No changes were made Medication Compliance: Yes Side effects from medications: No Review of Systems Review of Systems Yes all other systems are reviewed and are negative Mental Status Exam Mental Status Exam Patient Appearance: Well Grooomed Patient Orientation: Person, Place, Time and Situation Level of Consciousness: Awake Patient Behavior: Cooperative Mood Description: Withdrawn, Constricted, Depressed, Anxious and Apprehensive Affect Description: Constricted, Depressed and Apprehensive Ability to Follow Directions: Good Speech Pattern: Appropriate Memory Description: Intact Hallucinations: None Delusions: Not Present Thought Process: Linear Thought Content: positive for Circumstantial, positive for Suicidal Ideation (Denies active SI) and negative for Homicidal Ideation Judgement: Fair Judgement and Insight: Somewhat improved mood working at trying to change negative thinking patterns Diagnostics Vital Signs (24Hr): Vital Signs - 24 hr 11/08/21 20:31 Temperature 98.3 F Pulse Rate 83 Respiratory Rate 18 Blood Pressure 144/92 H Pulse Oximetry 95 BMI result Body Mass Index 32.0 Labs Results: 10/01/21 19:18 10/01/21 19:18 Labs: Laboratory Results - last 48 hr 11/07/21 11:25 COVID-19 ([facility]) Negative COVID-19 Clin Com See Note Medications Medications Current Medications Acetaminophen (Acetaminophen 325 Mg Tablet) 650 mg PO Q6H PRN PRN Reason: Pain (Scale Score 1-3) Last Admin: 11/08/21 09:26 Dose: 650 mg Documented by: Al Hydroxide/Mg Hydroxide (Magnesium Hydrox/Alum Hydrox 30 Ml Oral.Susp) 30 ml PO Q6H PRN PRN Reason: Heartburn/Nausea Last Admin: 11/06/21 16:22 Dose: 30 ml Documented by: Albuterol Sulfate (Albuterol Sulfate 90 Mcg 8 Gm Inhaler) 2 puff INHALE Q6H PRN PRN Reason: Shortness Of Breath Last Admin: 11/07/21 20:45 Dose: 2 puff Documented by: Amlodipine Besylate (Amlodipine Besylate 10 Mg Tablet) 10 mg PO DAILY [facility]; Protocol Last Admin: 11/08/21 08:21 Dose: 10 mg Documented by: Artificial Tears (Artificial Tears 15 Ml Drops) 1 drop EYE-BOTH Q1H PRN PRN Reason: Dry Eye(S) Last Admin: 10/12/21 14:13 Dose: 1 drop Documented by: Docusate Sodium (Docusate Sodium 100 Mg Capsule) 100 mg PO BEDTIME PRN PRN Reason: Constipation Last Admin: 11/03/21 19:56 Dose: 100 mg Documented by: Docusate Sodium (Docusate Sodium 100 Mg Capsule) 100 mg PO BID PRN PRN Reason: Constipation Last Admin: 10/19/21 09:38 Dose: 100 mg Documented by: Famotidine (Famotidine 20 Mg Tablet) 20 mg PO BID@0700,1730 [facility] Last Admin: 11/09/21 06:22 Dose: Not Given Documented by: Finasteride (Finasteride 5 Mg Tablet) 5 mg PO DAILY [facility] Last Admin: 11/08/21 08:21 Dose: 5 mg Documented by: Gabapentin (Gabapentin 400 Mg Capsule) 400 mg PO TID [facility] Last Admin: 11/08/21 21:33 Dose: 400 mg Documented by: Hydrocortisone (Hydrocortisone 1 % Cream 28.35 Gm Tube) 1 appl TOPICAL Q4H PRN; Protocol PRN Reason: RECTAL IRRITATION Last Admin: 11/05/21 20:44 Dose: 1 appl Documented by: Hydroxyzine HCl (Hydroxyzine Hcl 25 Mg Tablet) 25 mg PO BEDTIME PRN PRN Reason: Anxiety Last Admin: 10/20/21 20:35 Dose: 25 mg Documented by: Ibuprofen (Ibuprofen 400 Mg Tablet) 400 mg PO Q6H PRN PRN Reason: Pain, Moderate (Pain Scale 4-6 Last Admin: 11/07/21 03:15 Dose: 400 mg Documented by: Lamotrigine (Lamotrigine 100 Mg Tablet) 200 mg PO BID [facility] Last Admin: 11/08/21 21:32 Dose: 200 mg Documented by: Latanoprost (Latanoprost 0.005 % Ophth No 2.5 Ml Drops) 1 drop EYE-BOTH BEDTIME [facility] Last Admin: 11/08/21 21:30 Dose: 1 drop Documented by: Lidocaine (Lidocaine 4 % Patch Adh..Patch) 1 patch TRANSDERMA DAILY [facility]; Protocol Last Admin: 11/08/21 10:54 Dose: Not Given Documented by: Lisinopril (Lisinopril 40 Mg Tablet) 40 mg PO DAILY [facility]; Protocol Last Admin: 11/08/21 08:21 Dose: 40 mg Documented by: Lorazepam (Lorazepam 0.5 Mg Tablet) 0.5 mg PO Q4H PRN PRN Reason: Anxiety Last Admin: 11/08/21 21:33 Dose: 0.5 mg Documented by: Magnesium Hydroxide (Milk Of Magnesia 30 Ml Oral.Susp) 30 ml PO DAILY PRN PRN Reason: Constipation Last Admin: 10/11/21 15:55 Dose: 30 ml Documented by: Magnesium Hydroxide (Milk Of Magnesia 30 Ml Oral.Susp) 30 ml PO Q72H PRN PRN Reason: Constipation Melatonin (Melatonin 3 Mg Tablet) 6 mg PO BEDTIME [facility] Last Admin: 11/08/21 21:30 Dose: 6 mg Documented by: Miconazole Nitrate (Miconazole 2 % Extra Thick Cr 56.7 Gm Tube) 1 appl TOPICAL BID [facility]; Protocol Last Admin: 11/08/21 21:30 Dose: 1 appl Documented by: Multivitamins/Vitamin C (Multivitamin Tablet) 1 tab PO DAILY [facility] Last Admin: 11/08/21 08:20 Dose: 1 tab Documented by: Nortriptyline HCl (Nortriptyline Hcl 10 Mg Capsule) 30 mg PO BEDTIME [facility] Last Admin: 11/08/21 21:31 Dose: 30 mg Documented by: Pharmacy Consult (Consult Rx Other Drug Dosing) 1 each MISCELLANE DAILY PRN PRN Reason: Consult order Polyethylene Glycol (Polyethylene Glycol 3350 17 Gm Powd.Pack) 17 gm PO DAILY PRN PRN Reason: Constipation Last Admin: 10/05/21 15:53 Dose: 17 gm Documented by: Polyethylene Glycol (Polyethylene Glycol 3350 17 Gm Powd.Pack) 17 gm PO DAILY@1600 [facility] Last Admin: 11/08/21 15:22 Dose: Not Given Documented by: Pramipexole Dihydrochloride (Pramipexole Di-Hcl 0.125 Mg Tablet) 0.125 mg PO TID [facility] Last Admin: 11/08/21 21:31 Dose: 0.125 mg Documented by: Quetiapine Fumarate (Quetiapine Fumarate 25 Mg Tablet) 25 mg PO BID PRN PRN Reason: Anxiety Last Admin: 11/05/21 14:48 Dose: 25 mg Documented by: Quetiapine Fumarate (Quetiapine Fumarate 50 Mg Tablet) 50 mg PO BEDTIME [facility] Last Admin: 11/08/21 21:33 Dose: 50 mg Documented by: Trazodone HCl (Trazodone Hcl 50 Mg Tablet) 50 mg PO BEDTIME PRN PRN Reason: Insomnia Last Admin: 10/01/21 23:41 Dose: 50 mg Documented by: Trazodone HCl (Trazodone Hcl 50 Mg Tablet) 150 mg PO BEDTIME [facility] Last Admin: 11/08/21 21:33 Dose: 150 mg Documented by: Vitamin D (Cholecalciferol (Vitamin D3) 10 Mcg Tablet) 20 mcg PO DAILY [facility] Last Admin: 11/08/21 08:20 Dose: 20 mcg Documented by: Vortioxetine (Vortioxetine Hydrobromide 10 Mg Tablet) 10 mg PO DAILY@1700 [facility] Last Admin: 11/08/21 16:14 Dose: 10 mg Documented by: Allergies Allergies Allergy/AdvReac Type Severity Reaction Status Date / Time fentanyl [FENTANYL] Allergy Intermediate unknown Verified 05/22/21 11:43 Assessment & Plan Assessment & Plan (1) Depression: Status: Acute Code(s): F32.A - Depression, unspecified Assessment and Plan: The patient is an elderly male with a long history of major depressive disorder and TBI, admitted before, very well known by the service.? He has been admitted for exacerbation of depression with suicidal ideation without a clear stressor.? Historically, the patient responds to ECT. 10/21/21: Endorsing SI, hoplessness and depression. Will discus with team 10/21 ref mental state +/- modifying treatment/dispo planning. Discharge on hold consider ECT would clearly benefit from outpatient therapy which has been hard to arrange patient not to logical would benefit best from and person treatment. 10/22/2021 Patient continues depressed intermittently hopeless helpless despondent. May do better with intermittent ECT than 3 times a week consider dopamine agonist 10/24/21 evaluate ect 10/26: pt reports feeling very hopeless/helpless, passive SI, denies plan or intent. anxious mood, reports ativan helpful. Looking forward to have ECT on Thursday. no medication changes. 10/27: continues to present as very hopeless/helpless, passive SI, no plan or intent. pt reports heartburn, added pepcid 20mg po BID. stop remeron start nortriptyline mirapex patient quite anxious ruminating given education regarding CBT Continue Seroquel 11/05/2021 Continue Seroquel 50 at bedtime nortriptyline at HS check nortriptyline level ECT scheduled would benefit from ongoing physical activity 11/06/2021 Evaluate response to ECT check nortriptyline level continue Seroquel continue Mirapex 11/07/2021 Patient anxious dysphoric encourage ongoing cognitive and supportive strategies in addition to biological once. He additional ECT scheduled check nortriptyline level lower Trintellix secondary to GI side effects 11/08: Continue current plans and discuss continuation of the CT with Dr. Haskins on Thursday of next week 11/09: Continue current regimen and plans with him not wanting to go through his ECT treatment on 11/11 (2) HTN (hypertension): Status: Acute Code(s): I10 - Essential (primary) hypertension Assessment and Plan: cont tx plan I spent minutes with the patient and/or on the patient floor today, greater than?50% of which was spent counseling/coordinating care. Reason for contiued inpatient stay Substantial Risk for: other
[2021-11-09] MEDS: Acetaminophen 325 MG TABLET 650 MG PO (15:42)
[2021-11-09] MEDS: QUEtiapine Fumarate 25 MG TABLET PO (15:45)
[2021-11-09 18:00] VITALS: BP 130/92; PULSE 73; RESP 18; TEMP 36.6; O2SAT 95
[2021-11-09] MEDS: Latanoprost 0.005 % Ophth Sol 2.5 ML DROPS 1 DROP EYE-BOTH (20:39)
[2021-11-09] MEDS: traZODone HCL 50 MG TABLET 150 MG PO (20:41)
[2021-11-09] MEDS: QUEtiapine Fumarate 50 MG TABLET PO (20:42)
[2021-11-09] MEDS: Melatonin 3 MG TABLET 6 MG PO (20:42)
[2021-11-09] MEDS: Nortriptyline HCl 10 MG CAPSULE 30 MG PO (20:44)
[2021-11-09] MEDS: Magnesium Hydrox/Alum Hydrox 30 ML ORAL.SUSP PO (20:47)
[2021-11-09] MEDS: Hydrocortisone 1 % Cream 28.35 GM TUBE 1 APPL TOPICAL (20:48)
[2021-11-09] MEDS: LORazepam 0.5 MG TABLET PO (21:00)
[2021-11-10] MEDS: Ibuprofen 400 MG TABLET PO (05:02)
[2021-11-10 06:00] VITALS: BP 150/80; PULSE 80; TEMP 37.2; O2SAT 95
[2021-11-10 09:07] VITALS: BP 150/80; PULSE 80
[2021-11-10] MEDS: Finasteride 5 MG TABLET PO (09:07)
[2021-11-10] MEDS: amLODIPine Besylate 10 MG TABLET PO (09:07)
[2021-11-10] MEDS: Multivitamin TABLET 1 TAB PO (09:07)
[2021-11-10 09:08] VITALS: BP 150/80; PULSE 80
[2021-11-10] MEDS: lisinopriL 40 MG TABLET PO (09:08)
[2021-11-10] MEDS: Cholecalciferol (Vitamin D3) 10 MCG TABLET 20 MCG PO (09:08)
[2021-11-10] MEDS: Gabapentin 400 MG CAPSULE PO ×3 (09:08→21:48)
[2021-11-10] MEDS: lamoTRIgine 100 MG TABLET 200 MG PO ×2 (09:08→21:50)
[2021-11-10] MEDS: Pramipexole Di-HCL 0.125 MG TABLET PO ×3 (09:08→21:48)
--- NOTE | 2021-11-10 10:58 | P.PNPSI_ITS ---
Subjective Subjective Date of Service: 11/10/21 Reason For Visit: MDD SI Subjective Notes: Conditional Voluntary Interim History: Patient was seen and discussed in rounds today. He has been stable and continues to be doing very well with maintained improvements. He is quite clear that he does not want to have the ECT treatment on Thursday. His NPO is discontinued. No complaints or side effects. Eating and sleeping well. No other changes were made today Medication Compliance: Yes Side effects from medications: No Review of Systems Review of Systems Yes all other systems are reviewed and are negative Mental Status Exam Mental Status Exam Patient Appearance: Well Grooomed Patient Orientation: Person, Place, Time and Situation Level of Consciousness: Awake Patient Behavior: Cooperative Mood Description: Withdrawn, Cheerful and Anxious Affect Description: Appropriate, Relaxed, Cheerful and Apprehensive Ability to Follow Directions: Good Speech Pattern: Appropriate Memory Description: Intact Hallucinations: None Delusions: Not Present Thought Process: Linear Thought Content: positive for Circumstantial, positive for Suicidal Ideation (Denies active SI) and negative for Homicidal Ideation Judgement: Fair Judgement and Insight: Somewhat improved mood working at trying to change negative thinking patterns Diagnostics Vital Signs (24Hr): Vital Signs - 24 hr 11/09/21 18:00 11/10/21 06:00 11/10/21 09:07 Temperature 98 F 98.9 F Pulse Rate 73 80 80 Respiratory Rate 18 Blood Pressure 130/92 H 150/80 H 150/80 H Pulse Oximetry 95 95 11/10/21 09:08 Temperature Pulse Rate 80 Respiratory Rate Blood Pressure 150/80 H Pulse Oximetry BMI result Body Mass Index 32.0 Labs Results: 10/01/21 19:18 10/01/21 19:18 Medications Medications Current Medications Acetaminophen (Acetaminophen 325 Mg Tablet) 650 mg PO Q6H PRN PRN Reason: Pain (Scale Score 1-3) Last Admin: 11/09/21 15:42 Dose: 650 mg Documented by: Al Hydroxide/Mg Hydroxide (Magnesium Hydrox/Alum Hydrox 30 Ml Oral.Susp) 30 ml PO Q6H PRN PRN Reason: Heartburn/Nausea Last Admin: 11/09/21 20:47 Dose: 30 ml Documented by: Albuterol Sulfate (Albuterol Sulfate 90 Mcg 8 Gm Inhaler) 2 puff INHALE Q6H PRN PRN Reason: Shortness Of Breath Last Admin: 11/07/21 20:45 Dose: 2 puff Documented by: Amlodipine Besylate (Amlodipine Besylate 10 Mg Tablet) 10 mg PO DAILY [facility]; Protocol Last Admin: 11/10/21 09:07 Dose: 10 mg Documented by: Artificial Tears (Artificial Tears 15 Ml Drops) 1 drop EYE-BOTH Q1H PRN PRN Reason: Dry Eye(S) Last Admin: 10/12/21 14:13 Dose: 1 drop Documented by: Docusate Sodium (Docusate Sodium 100 Mg Capsule) 100 mg PO BEDTIME PRN PRN Reason: Constipation Last Admin: 11/03/21 19:56 Dose: 100 mg Documented by: Docusate Sodium (Docusate Sodium 100 Mg Capsule) 100 mg PO BID PRN PRN Reason: Constipation Last Admin: 10/19/21 09:38 Dose: 100 mg Documented by: Famotidine (Famotidine 20 Mg Tablet) 20 mg PO BID@0700,1730 [facility] Last Admin: 11/10/21 09:07 Dose: Not Given Documented by: Finasteride (Finasteride 5 Mg Tablet) 5 mg PO DAILY [facility] Last Admin: 11/10/21 09:07 Dose: 5 mg Documented by: Gabapentin (Gabapentin 400 Mg Capsule) 400 mg PO TID [facility] Last Admin: 11/10/21 09:08 Dose: 400 mg Documented by: Hydrocortisone (Hydrocortisone 1 % Cream 28.35 Gm Tube) 1 appl TOPICAL Q4H PRN; Protocol PRN Reason: RECTAL IRRITATION Last Admin: 11/09/21 20:48 Dose: 1 appl Documented by: Hydroxyzine HCl (Hydroxyzine Hcl 25 Mg Tablet) 25 mg PO BEDTIME PRN PRN Reason: Anxiety Last Admin: 10/20/21 20:35 Dose: 25 mg Documented by: Ibuprofen (Ibuprofen 400 Mg Tablet) 400 mg PO Q6H PRN PRN Reason: Pain, Moderate (Pain Scale 4-6 Last Admin: 11/10/21 05:02 Dose: 400 mg Documented by: Lamotrigine (Lamotrigine 100 Mg Tablet) 200 mg PO BID [facility] Last Admin: 11/10/21 09:08 Dose: 200 mg Documented by: Latanoprost (Latanoprost 0.005 % Ophth No 2.5 Ml Drops) 1 drop EYE-BOTH BEDTIME [facility] Last Admin: 11/09/21 20:39 Dose: 1 drop Documented by: Lidocaine (Lidocaine 4 % Patch Adh..Patch) 1 patch TRANSDERMA DAILY [facility]; Protoc ol Last Admin: 11/10/21 09:12 Dose: Not Given Documented by: Lisinopril (Lisinopril 40 Mg Tablet) 40 mg PO DAILY [facility]; Protocol Last Admin: 11/10/21 09:08 Dose: 40 mg Documented by: Lorazepam (Lorazepam 0.5 Mg Tablet) 0.5 mg PO Q4H PRN PRN Reason: Anxiety Last Admin: 11/09/21 21:00 Dose: 0.5 mg Documented by: Magnesium Hydroxide (Milk Of Magnesia 30 Ml Oral.Susp) 30 ml PO DAILY PRN PRN Reason: Constipation Last Admin: 10/11/21 15:55 Dose: 30 ml Documented by: Magnesium Hydroxide (Milk Of Magnesia 30 Ml Oral.Susp) 30 ml PO Q72H PRN PRN Reason: Constipation Melatonin (Melatonin 3 Mg Tablet) 6 mg PO BEDTIME [facility] Last Admin: 11/09/21 20:42 Dose: 6 mg Documented by: Miconazole Nitrate (Miconazole 2 % Extra Thick Cr 56.7 Gm Tube) 1 appl TOPICAL BID [facility]; Protocol Last Admin: 11/10/21 09:12 Dose: Not Given Documented by: Multivitamins/Vitamin C (Multivitamin Tablet) 1 tab PO DAILY [facility] Last Admin: 11/10/21 09:07 Dose: 1 tab Documented by: Nortriptyline HCl (Nortriptyline Hcl 10 Mg Capsule) 30 mg PO BEDTIME [facility] Last Admin: 11/09/21 20:44 Dose: 30 mg Documented by: Pharmacy Consult (Consult Rx Other Drug Dosing) 1 each MISCELLANE DAILY PRN PRN Reason: Consult order Polyethylene Glycol (Polyethylene Glycol 3350 17 Gm Powd.Pack) 17 gm PO DAILY PRN PRN Reason: Constipation Last Admin: 10/05/21 15:53 Dose: 17 gm Documented by: Polyethylene Glycol (Polyethylene Glycol 3350 17 Gm Powd.Pack) 17 gm PO DAILY@1600 [facility] Last Admin: 11/09/21 15:26 Dose: Not Given Documented by: Pramipexole Dihydrochloride (Pramipexole Di-Hcl 0.125 Mg Tablet) 0.125 mg PO TID [facility] Last Admin: 11/10/21 09:08 Dose: 0.125 mg Documented by: Quetiapine Fumarate (Quetiapine Fumarate 25 Mg Tablet) 25 mg PO BID PRN PRN Reason: Anxiety Last Admin: 11/09/21 15:45 Dose: 25 mg Documented by: Quetiapine Fumarate (Quetiapine Fumarate 50 Mg Tablet) 50 mg PO BEDTIME [facility] Last Admin: 11/09/21 20:42 Dose: 50 mg Documented by: Trazodone HCl (Trazodone Hcl 50 Mg Tablet) 50 mg PO BEDTIME PRN PRN Reason: Insomnia Last Admin: 10/01/21 23:41 Dose: 50 mg Documented by: Trazodone HCl (Trazodone Hcl 50 Mg Tablet) 150 mg PO BEDTIME [facility] Last Admin: 11/09/21 20:41 Dose: 150 mg Documented by: Vitamin D (Cholecalciferol (Vitamin D3) 10 Mcg Tablet) 20 mcg PO DAILY [facility] Last Admin: 11/10/21 09:08 Dose: 20 mcg Documented by: Vortioxetine (Vortioxetine Hydrobromide 10 Mg Tablet) 10 mg PO DAILY@1700 [facility] Last Admin: 11/10/21 09:07 Dose: Not Given Documented by: Allergies Allergies Allergy/AdvReac Type Severity Reaction Status Date / Time fentanyl [FENTANYL] Allergy Intermediate unknown Verified 05/22/21 11:43 Assessment & Plan Assessment & Plan (1) Depression: Status: Acute Code(s): F32.A - Depression, unspecified Assessment and Plan: The patient is an elderly male with a long history of major depressive disorder and TBI, admitted before, very well known by the service.? He has been admitted for exacerbation of depression with suicidal ideation without a clear stressor.? Historically, the patient responds to ECT. 10/21/21: Endorsing SI, hoplessness and depression. Will discus with team 10/21 ref mental state +/- modifying treatment/dispo planning. Discharge on hold consider ECT would clearly benefit from outpatient therapy which has been hard to arrange patient not to logical would benefit best from and person treatment. 10/22/2021 Patient continues depressed intermittently hopeless helpless despondent. May do better with intermittent ECT than 3 times a week consider dopamine agonist 10/24/21 evaluate ect 10/26: pt reports feeling very hopeless/helpless, passive SI, denies plan or intent. anxious mood, reports ativan helpful. Looking forward to have ECT on Thursday. no medication changes. 10/27: continues to present as very hopeless/helpless, passive SI, no plan or intent. pt reports heartburn, added pepcid 20mg po BID. stop remeron start nortriptyline mirapex patient quite anxious ruminating given education regarding CBT Continue Seroquel 11/05/2021 Continue Seroquel 50 at bedtime nortriptyline at HS check nortriptyline level EC T scheduled would benefit from ongoing physical activity 11/06/2021 Evaluate response to ECT check nortriptyline level continue Seroquel continue Mirapex 11/07/2021 Patient anxious dysphoric encourage ongoing cognitive and supportive strategies in addition to biological once. He additional ECT scheduled check nortriptyline level lower Trintellix secondary to GI side effects 11/08: Continue current plans and discuss continuation of the CT with Dr. Haskins on Thursday of next week 11/09: Continue current regimen and plans with him not wanting to go through his ECT treatment on 11/11 11/10: Continue current regimen and plans. Discontinue NPO in preparation for his ECT which he does not want to have on Thursday (2) HTN (hypertension): Status: Acute Code(s): I10 - Essential (primary) hypertension Assessment and Plan: cont tx plan I spent minutes with the patient and/or on the patient floor today, greater than?50% of which was spent counseling/coordinating care. Reason for contiued inpatient stay Substantial Risk for: other
[2021-11-10] MEDS: polyethylene glycoL 3350 17 GM POWD.PACK PO (15:33)
[2021-11-10 18:00] VITALS: BP 134/69; PULSE 78; RESP 18; TEMP 37.1; O2SAT 94
[2021-11-10] MEDS: Latanoprost 0.005 % Ophth Sol 2.5 ML DROPS 1 DROP EYE-BOTH (21:44)
[2021-11-10] MEDS: traZODone HCL 50 MG TABLET 150 MG PO (21:45)
[2021-11-10] MEDS: LORazepam 0.5 MG TABLET PO (21:47)
[2021-11-10] MEDS: Melatonin 3 MG TABLET 6 MG PO (21:47)
[2021-11-10] MEDS: Nortriptyline HCl 10 MG CAPSULE 30 MG PO (21:48)
[2021-11-10] MEDS: Hydrocortisone 1 % Cream 28.35 GM TUBE 1 APPL TOPICAL (21:54)
[2021-11-10] MEDS: Miconazole 2 % Extra Thick Cr 56.7 Gm Tube 1 APPL TOPICAL (22:27)
[2021-11-10] MEDS: QUEtiapine Fumarate 50 MG TABLET PO (22:29)
[2021-11-11] MEDS: Ibuprofen 400 MG TABLET PO (04:20)
--- NOTE | 2021-11-11 09:46 | HO.PSYCHPN ---
Subjective Subjective Date of Service: 11/11/21 Reason For Visit: MDD SI Subjective Notes: Conditional Voluntary Guardianship: No Interim History: Patient's case reviewed in treatment team chart reviewed patient seen. Patient feeling less depressed more in control of himself future oriented feeling improved more motivated feeling more in control of himself Medication Compliance: Yes Review of Systems Acute medical concerns: No Mental Status Exam Mental Status Exam Patient Appearance: Well Grooomed Patient Orientation: Person, Place, Time and Situation Level of Consciousness: Awake Patient Behavior: Cooperative Mood Description: Withdrawn, Cheerful and Anxious Affect Description: Appropriate, Relaxed, Cheerful and Apprehensive Ability to Follow Directions: Good Speech Pattern: Appropriate Memory Description: Intact Hallucinations: None Delusions: Not Present Thought Process: Linear Thought Content: positive for Intact, negative for Suicidal Ideation (Denies active SI) or negative for Homicidal Ideation Judgement: Good Judgement and Insight: Somewhat improved mood working at trying to change negative thinking patterns Diagnostics Vital Signs (24Hr): Vital Signs - 24 hr 11/10/21 18:00 Temperature 98.7 F Pulse Rate 78 Respiratory Rate 18 Blood Pressure 134/69 Pulse Oximetry 94 BMI result Body Mass Index 32.0 Labs Results: 10/01/21 19:18 10/01/21 19:18 Medications Medications Current Medications Acetaminophen (Acetaminophen 325 Mg Tablet) 650 mg PO Q6H PRN PRN Reason: Pain (Scale Score 1-3) Last Admin: 11/09/21 15:42 Dose: 650 mg Documented by: Al Hydroxide/Mg Hydroxide (Magnesium Hydrox/Alum Hydrox 30 Ml Oral.Susp) 30 ml PO Q6H PRN PRN Reason: Heartburn/Nausea Last Admin: 11/09/21 20:47 Dose: 30 ml Documented by: Albuterol Sulfate (Albuterol Sulfate 90 Mcg 8 Gm Inhaler) 2 puff INHALE Q6H PRN PRN Reason: Shortness Of Breath Last Admin: 11/07/21 20:45 Dose: 2 puff Documented by: Amlodipine Besylate (Amlodipine Besylate 10 Mg Tablet) 10 mg PO DAILY [facility]; Protocol Last Admin: 11/10/21 09:07 Dose: 10 mg Documented by: Artificial Tears (Artificial Tears 15 Ml Drops) 1 drop EYE-BOTH Q1H PRN PRN Reason: Dry Eye(S) Last Admin: 10/12/21 14:13 Dose: 1 drop Documented by: Docusate Sodium (Docusate Sodium 100 Mg Capsule) 100 mg PO BEDTIME PRN PRN Reason: Constipation Last Admin: 11/03/21 19:56 Dose: 100 mg Documented by: Docusate Sodium (Docusate Sodium 100 Mg Capsule) 100 mg PO BID PRN PRN Reason: Constipation Last Admin: 10/19/21 09:38 Dose: 100 mg Documented by: Famotidine (Famotidine 20 Mg Tablet) 20 mg PO BID@0700,1730 [facility] Last Admin: 11/10/21 16:45 Dose: Not Given Documented by: Finasteride (Finasteride 5 Mg Tablet) 5 mg PO DAILY [facility] Last Admin: 11/10/21 09:07 Dose: 5 mg Documented by: Gabapentin (Gabapentin 400 Mg Capsule) 400 mg PO TID [facility] Last Admin: 11/10/21 21:48 Dose: 400 mg Documented by: Hydrocortisone (Hydrocortisone 1 % Cream 28.35 Gm Tube) 1 appl TOPICAL Q4H PRN; Protocol PRN Reason: RECTAL IRRITATION Last Admin: 11/10/21 21:54 Dose: 1 appl Documented by: Hydroxyzine HCl (Hydroxyzine Hcl 25 Mg Tablet) 25 mg PO BEDTIME PRN PRN Reason: Anxiety Last Admin: 10/20/21 20:35 Dose: 25 mg Documented by: Ibuprofen (Ibuprofen 400 Mg Tablet) 400 mg PO Q6H PRN PRN Reason: Pain, Moderate (Pain Scale 4-6 Last Admin: 11/11/21 04:20 Dose: 400 mg Documented by: Lamotrigine (Lamotrigine 100 Mg Tablet) 200 mg PO BID [facility] Last Admin: 11/10/21 21:50 Dose: 200 mg Documented by: Latanoprost (Latanoprost 0.005 % Ophth No 2.5 Ml Drops) 1 drop EYE-BOTH BEDTIME [facility] Last Admin: 11/10/21 21:44 Dose: 1 drop Documented by: Lidocaine (Lidocaine 4 % Patch Adh..Patch) 1 patch TRANSDERMA DAILY [facility]; Protocol Last Admin: 11/10/21 09:12 Dose: Not Given Documented by: Lisinopril (Lisinopril 40 Mg Tablet) 40 mg PO DAILY [facility]; Protocol Last Admin: 11/10/21 09:08 Dose: 40 mg Documented by: Lorazepam (Lorazepam 0.5 Mg Tablet) 0.5 mg PO Q4H PRN PRN Reason: Anxiety Last Admin: 11/10/21 21:47 Dose: 0.5 mg Documented by: Magnesium Hydroxide (Milk Of Magnesia 30 Ml Oral.Susp) 30 ml PO DAILY PRN PRN Reason: Constipation Last Admin: 10/11/21 15:55 Dose: 30 ml Documented by: Magnesium Hydroxide (Milk Of Magnesia 30 Ml Oral.Susp) 30 ml PO Q72H PRN PRN Reason: Constipation Melatonin (Melatonin 3 Mg Tablet) 6 mg PO BEDTIME [facility] Last Admin: 11/10/21 21:47 Dose: 6 mg Documented by: Miconazole Nitrate (Miconazole 2 % Extra Thick Cr 56.7 Gm Tube) 1 appl TOPICAL BID [facility]; Protocol Last Admin: 11/10/21 22:27 Dose: 1 appl Documented by: Multivitamins/Vitamin C (Multivitamin Tablet) 1 tab PO DAILY [facility] Last Admin: 11/10/21 09:07 Dose: 1 tab Documented by: Nortriptyline HCl (Nortriptyline Hcl 10 Mg Capsule) 30 mg PO BEDTIME [facility] Last Admin: 11/10/21 21:48 Dose: 30 mg Documented by: Pharmacy Consult (Consult Rx Other Drug Dosing) 1 each MISCELLANE DAILY PRN PRN Reason: Consult order Polyethylene Glycol (Polyethylene Glycol 3350 17 Gm Powd.Pack) 17 gm PO DAILY PRN PRN Reason: Constipation Last Admin: 10/05/21 15:53 Dose: 17 gm Documented by: Polyethylene Glycol (Polyethylene Glycol 3350 17 Gm Powd.Pack) 17 gm PO DAILY@1600 [facility] Last Admin: 11/10/21 15:33 Dose: 17 gm Documented by: Pramipexole Dihydrochloride (Pramipexole Di-Hcl 0.125 Mg Tablet) 0.125 mg PO TID [facility] Last Admin: 11/10/21 21:48 Dose: 0.125 mg Documented by: Quetiapine Fumarate (Quetiapine Fumarate 25 Mg Tablet) 25 mg PO BID PRN PRN Reason: Anxiety Last Admin: 11/09/21 15:45 Dose: 25 mg Documented by: Quetiapine Fumarate (Quetiapine Fumarate 50 Mg Tablet) 50 mg PO BEDTIME [facility] Last Admin: 11/10/21 22:29 Dose: 50 mg Documented by: Trazodone HCl (Trazodone Hcl 50 Mg Tablet) 50 mg PO BEDTIME PRN PRN Reason: Insomnia Last Admin: 10/01/21 23:41 Dose: 50 mg Documented by: Trazodone HCl (Trazodone Hcl 50 Mg Tablet) 150 mg PO BEDTIME [facility] Last Admin: 11/10/21 21:45 Dose: 150 mg Documented by: Vitamin D (Cholecalciferol (Vitamin D3) 10 Mcg Tablet) 20 mcg PO DAILY [facility] Last Admin: 11/10/21 09:08 Dose: 20 mcg Documented by: Vortioxetine (Vortioxetine Hydrobromide 10 Mg Tablet) 10 mg PO DAILY@1700 [facility] Last Admin: 11/10/21 16:45 Dose: Not Given Documented by: Allergies Allergies Allergy/AdvReac Type Severity Reaction Status Date / Time fentanyl [FENTANYL] Allergy Intermediate unknown Verified 05/22/21 11:43 Assessment & Plan Assessment & Plan (1) Depression: Status: Acute Code(s): F32.A - Depression, unspecified Assessment and Plan: The patient is an elderly male with a long history of major depressive disorder and TBI, admitted before, very well known by the service.? He has been admitted for exacerbation of depression with suicidal ideation without a clear stressor.? Historically, the patient responds to ECT. 10/21/21: Endorsing SI, hoplessness and depression. Will discus with team 10/21 ref mental state +/- modifying treatment/dispo planning. Discharge on hold consider ECT would clearly benefit from outpatient therapy which has been hard to arrange patient not to logical would benefit best from and person treatment. 10/22/2021 Patient continues depressed intermittently hopeless helpless despondent. May do better with intermittent ECT than 3 times a week consider dopamine agonist 10/24/21 evaluate ect 10/26: pt reports feeling very hopeless/helpless, passive SI, denies plan or intent. anxious mood, reports ativan helpful. Looking forward to have ECT on Thursday. no medication changes. 10/27: continues to present as very hopeless/helpless, passive SI, no plan or intent. pt reports heartburn, added pepcid 20mg po BID. stop remeron start nortriptyline mirapex patient quite anxious ruminating given education regarding CBT Continue Seroquel 11/05/2021 Continue Seroquel 50 at bedtime nortriptyline at HS check nortriptyline level ECT scheduled would benefit from ongoing physical activity 11/06/2021 Evaluate response to ECT check nortriptyline level continue Seroquel continue Mirapex 11/07/2021 Patient anxious dysphoric encourage ongoing cognitive and supportive strategies in addition to biological once. He additional ECT scheduled check nortriptyline level lower Trintellix secondary to GI side effects 11/08: Continue current plans and discuss continuation of the CT with Dr. Haskins on Thursday of next week 11/09: Continue current regimen and plans with him not wanting to go through his ECT treatment on 11/11 11/10: Continue current regimen and plans. Discontinue NPO in preparation for his ECT which he does not want to have on Thursday11/11/2021 Continue Trintellix nortriptyline at bedtime Seroquel at HS. Patient seems more motivated future oriented feels like he can better manage discharge him be more motivated to engage in treatment denies any active SI (2) HTN (hypertension): Status: Acute Code(s): I10 - Essential (primary) hypertension Assessment and Plan: cont tx plan I spent minutes with the patient and/or on the patient floor today, greater than?50% of which was spent counseling/coordinating care. Reason for contiued inpatient stay Substantial Risk for: harm to self and rapid decompensation
[2021-11-11 10:00] VITALS: BP 147/82; PULSE 91; RESP 16; TEMP 36.4; O2SAT 96
[2021-11-11 10:42] VITALS: BP 147/82; PULSE 91
[2021-11-11] MEDS: amLODIPine Besylate 10 MG TABLET PO (10:42)
[2021-11-11] MEDS: Gabapentin 400 MG CAPSULE PO ×3 (10:42→21:28)
[2021-11-11] MEDS: Cholecalciferol (Vitamin D3) 10 MCG TABLET 20 MCG PO (10:42)
[2021-11-11] MEDS: Multivitamin TABLET 1 TAB PO (10:42)
[2021-11-11] MEDS: lamoTRIgine 100 MG TABLET 200 MG PO ×2 (10:42→21:28)
[2021-11-11 10:43] VITALS: BP 147/82; PULSE 91
[2021-11-11] MEDS: Pramipexole Di-HCL 0.125 MG TABLET PO ×3 (10:43→21:29)
[2021-11-11] MEDS: lisinopriL 40 MG TABLET PO (10:43)
[2021-11-11] MEDS: Finasteride 5 MG TABLET PO (10:44)
[2021-11-11 12:09] LABS: COVID-19 Test Negative (Negative)
[2021-11-11] MEDS: polyethylene glycoL 3350 17 GM POWD.PACK PO (16:25)
[2021-11-11] MEDS: Vortioxetine Hydrobromide 10 MG TABLET PO (16:26)
[2021-11-11] MEDS: Acetaminophen 325 MG TABLET 650 MG PO (16:35)
[2021-11-11] MEDS: Latanoprost 0.005 % Ophth Sol 2.5 ML DROPS 1 DROP EYE-BOTH (21:28)
[2021-11-11] MEDS: Melatonin 3 MG TABLET 6 MG PO (21:28)
[2021-11-11] MEDS: Nortriptyline HCl 10 MG CAPSULE 30 MG PO (21:29)
[2021-11-11] MEDS: traZODone HCL 50 MG TABLET 150 MG PO (21:30)
[2021-11-11] MEDS: QUEtiapine Fumarate 50 MG TABLET PO (21:30)
[2021-11-11 22:29] VITALS: BP 155/74; PULSE 82; RESP 17; TEMP 36.6; O2SAT 97
[2021-11-12] MEDS: LORazepam 0.5 MG TABLET PO ×2 (05:20→16:46)
[2021-11-12] MEDS: Ibuprofen 400 MG TABLET PO (05:22)
[2021-11-12 06:00] VITALS: BP 166/79; PULSE 63; RESP 15; TEMP 35.8; O2SAT 97
[2021-11-12] MEDS: Multivitamin TABLET 1 TAB PO (08:17)
[2021-11-12] MEDS: Pramipexole Di-HCL 0.125 MG TABLET PO ×3 (08:17→21:17)
[2021-11-12] MEDS: Gabapentin 400 MG CAPSULE PO ×3 (08:17→21:16)
[2021-11-12 08:18] VITALS: BP 166/79; PULSE 63
[2021-11-12] MEDS: Cholecalciferol (Vitamin D3) 10 MCG TABLET 20 MCG PO (08:18)
[2021-11-12] MEDS: lisinopriL 40 MG TABLET PO (08:18)
[2021-11-12] MEDS: lamoTRIgine 100 MG TABLET 200 MG PO ×2 (08:19→21:16)
[2021-11-12 08:23] VITALS: BP 166/79; PULSE 63
[2021-11-12] MEDS: amLODIPine Besylate 10 MG TABLET PO (08:23)
[2021-11-12] MEDS: Finasteride 5 MG TABLET PO (08:24)
[2021-11-12] MEDS: Acetaminophen 325 MG TABLET 650 MG PO (08:24)
[2021-11-12] MEDS: polyethylene glycoL 3350 17 GM POWD.PACK PO (16:39)
[2021-11-12 18:00] VITALS: BP 134/76; PULSE 80; RESP 18; TEMP 36.9; O2SAT 97
[2021-11-12] MEDS: LORazepam 1 MG TABLET PO (21:16)
[2021-11-12] MEDS: Nortriptyline HCl 10 MG CAPSULE 30 MG PO (21:16)
[2021-11-12] MEDS: Melatonin 3 MG TABLET 6 MG PO (21:16)
[2021-11-12] MEDS: Latanoprost 0.005 % Ophth Sol 2.5 ML DROPS 1 DROP EYE-BOTH (21:16)
[2021-11-12] MEDS: traZODone HCL 50 MG TABLET 150 MG PO (21:17)
[2021-11-12] MEDS: QUEtiapine Fumarate 50 MG TABLET PO (21:17)
[2021-11-12] MEDS: Miconazole 2 % Extra Thick Cr 56.7 Gm Tube 1 APPL TOPICAL (21:22)
--- NOTE | 2021-11-12 21:57 | P.PNPSI_ITS ---
Subjective Subjective Date of Service: 11/12/21 Reason For Visit: MDD SI Subjective Notes: Conditional Voluntary Guardianship: No Interim History: pt with improved mood more alert active feeling better re discharge case reviewed nursing and sw Medication Compliance: Yes Side effects from medications: Yes Mental Status Exam Mental Status Exam Patient Appearance: Well Grooomed Patient Orientation: Person, Place, Time and Situation Level of Consciousness: Awake Patient Behavior: Cooperative Mood Description: Cheerful and Anxious (less) Affect Description: Appropriate, Relaxed, Cheerful and Apprehensive Ability to Follow Directions: Good Speech Pattern: Appropriate Memory Description: Intact Hallucinations: None Delusions: Not Present Thought Process: Linear Thought Content: positive for Intact, negative for Suicidal Ideation (Denies active SI) or negative for Homicidal Ideation Judgement: Good Judgement and Insight: Somewhat improved mood working at trying to change negative thinking patterns Diagnostics Vital Signs (24Hr): Vital Signs - 24 hr 11/11/21 22:29 11/12/21 06:00 11/12/21 08:18 Temperature 98 F 96.5 F L Pulse Rate 82 63 63 Respiratory Rate 17 15 Blood Pressure 155/74 H 166/79 H 166/79 H Pulse Oximetry 97 97 11/12/21 08:23 11/12/21 18:00 Temperature 98.5 F Pulse Rate 63 80 Respiratory Rate 18 Blood Pressure 166/79 H 134/76 Pulse Oximetry 97 BMI result Body Mass Index 32.0 Labs Results: 10/01/21 19:18 10/01/21 19:18 Labs: Laboratory Results - last 48 hr 11/11/21 11:13 COVID-19 ([facility]) Negative COVID-19 Clin Com See Note Medications Medications Current Medications Acetaminophen (Acetaminophen 325 Mg Tablet) 650 mg PO Q6H PRN PRN Reason: Pain (Scale Score 1-3) Last Admin: 11/12/21 08:24 Dose: 650 mg Documented by: Al Hydroxide/Mg Hydroxide (Magnesium Hydrox/Alum Hydrox 30 Ml Oral.Susp) 30 ml PO Q6H PRN PRN Reason: Heartburn/Nausea Last Admin: 11/09/21 20:47 Dose: 30 ml Documented by: Albuterol Sulfate (Albuterol Sulfate 90 Mcg 8 Gm Inhaler) 2 puff INHALE Q6H PRN PRN Reason: Shortness Of Breath Last Admin: 11/07/21 20:45 Dose: 2 puff Documented by: Amlodipine Besylate (Amlodipine Besylate 10 Mg Tablet) 10 mg PO DAILY [facility]; Protocol Last Admin: 11/12/21 08:23 Dose: 10 mg Documented by: Artificial Tears (Artificial Tears 15 Ml Drops) 1 drop EYE-BOTH Q1H PRN PRN Reason: Dry Eye(S) Last Admin: 10/12/21 14:13 Dose: 1 drop Documented by: Docusate Sodium (Docusate Sodium 100 Mg Capsule) 100 mg PO BEDTIME PRN PRN Reason: Constipation Last Admin: 11/03/21 19:56 Dose: 100 mg Documented by: Docusate Sodium (Docusate Sodium 100 Mg Capsule) 100 mg PO BID PRN PRN Reason: Constipation Last Admin: 10/19/21 09:38 Dose: 100 mg Documented by: Famotidine (Famotidine 20 Mg Tablet) 20 mg PO BID@0700,1730 [facility] Last Admin: 11/12/21 17:02 Dose: Not Given Documented by: Finasteride (Finasteride 5 Mg Tablet) 5 mg PO DAILY [facility] Last Admin: 11/12/21 08:24 Dose: 5 mg Documented by: Gabapentin (Gabapentin 400 Mg Capsule) 400 mg PO TID [facility] Last Admin: 11/12/21 21:16 Dose: 400 mg Documented by: Hydrocortisone (Hydrocortisone 1 % Cream 28.35 Gm Tube) 1 appl TOPICAL Q4H PRN; Protocol PRN Reason: RECTAL IRRITATION Last Admin: 11/10/21 21:54 Dose: 1 appl Documented by: Hydroxyzine HCl (Hydroxyzine Hcl 25 Mg Tablet) 25 mg PO BEDTIME PRN PRN Reason: Anxiety Last Admin: 10/20/21 20:35 Dose: 25 mg Documented by: Ibuprofen (Ibuprofen 400 Mg Tablet) 400 mg PO Q6H PRN PRN Reason: Pain, Moderate (Pain Scale 4-6 Last Admin: 11/12/21 05:22 Dose: 400 mg Documented by: Lamotrigine (Lamotrigine 100 Mg Tablet) 200 mg PO BID [facility] Last Admin: 11/12/21 21:16 Dose: 200 mg Documented by: Latanoprost (Latanoprost 0.005 % Ophth No 2.5 Ml Drops) 1 drop EYE-BOTH BEDTIME [facility] Last Admin: 11/12/21 21:16 Dose: 1 drop Documented by: Lidocaine (Lidocaine 4 % Patch Adh..Patch) 1 patch TRANSDERMA DAILY [facility]; Protocol Last Admin: 11/12/21 10:40 Dose: Not Given Documented by: Lisinopril (Lisinopril 40 Mg Tablet) 40 mg PO DAILY [facility]; Protocol Last Admin: 11/12/21 08:18 Dose: 40 mg Documented by: Lorazepam (Lorazepam 0.5 Mg Tablet) 0.5 mg PO Q4H PRN PRN Reason: Anxiety Last Admin: 11/12/21 16:46 Dose: 0.5 mg Documented by: Lorazepam (Lorazepam 1 Mg Tablet) 1 mg PO BEDTIME [facility] Last Admin: 11/12/21 21:16 Dose: 1 mg Documented by: Magnesium Hydroxide (Milk Of Magnesia 30 Ml Oral.Susp) 30 ml PO DAILY PRN PRN Reason: Constipation Last Admin: 10/11/21 15:55 Dose: 30 ml Documented by: Magnesium Hydroxide (Milk Of Magnesia 30 Ml Oral.Susp) 30 ml PO Q72H PRN PRN Reason: Constipation Melatonin (Melatonin 3 Mg Tablet) 6 mg PO BEDTIME [facility] Last Admin: 11/12/21 21:16 Dose: 6 mg Documented by: Miconazole Nitrate (Miconazole 2 % Extra Thick Cr 56.7 Gm Tube) 1 appl TOPICAL BID [facility]; Protocol Last Admin: 11/12/21 21:22 Dose: 1 appl Documented by: Multivitamins/Vitamin C (Multivitamin Tablet) 1 tab PO DAILY [facility] Last Admin: 11/12/21 08:17 Dose: 1 tab Documented by: Nortriptyline HCl (Nortriptyline Hcl 10 Mg Capsule) 30 mg PO BEDTIME [facility] Last Admin: 11/12/21 21:16 Dose: 30 mg Documented by: Pharmacy Consult (Consult Rx Other Drug Dosing) 1 each MISCELLANE DAILY PRN PRN Reason: Consult order Polyethylene Glycol (Polyethylene Glycol 3350 17 Gm Powd.Pack) 17 gm PO DAILY PRN PRN Reason: Constipation Last Admin: 10/05/21 15:53 Dose: 17 gm Documented by: Polyethylene Glycol (Polyethylene Glycol 3350 17 Gm Powd.Pack) 17 gm PO DAILY@1600 [facility] Last Admin: 11/12/21 16:39 Dose: 17 gm Documented by: Pramipexole Dihydrochloride (Pramipexole Di-Hcl 0.125 Mg Tablet) 0.125 mg PO TID [facility] Last Admin: 11/12/21 21:17 Dose: 0.125 mg Documented by: Quetiapine Fumarate (Quetiapine Fumarate 25 Mg Tablet) 25 mg PO BID PRN PRN Reason: Anxiety Last Admin: 11/09/21 15:45 Dose: 25 mg Documented by: Quetiapine Fumarate (Quetiapine Fumarate 50 Mg Tablet) 50 mg PO BEDTIME [facility] Last Admin: 11/12/21 21:17 Dose: 50 mg Documented by: Trazodone HCl (Trazodone Hcl 50 Mg Tablet) 50 mg PO BEDTIME PRN PRN Reason: Insomnia Last Admin: 10/01/21 23:41 Dose: 50 mg Documented by: Trazodone HCl (Trazodone Hcl 50 Mg Tablet) 150 mg PO BEDTIME [facility] Last Admin: 11/12/21 21:17 Dose: 150 mg Documented by: Vitamin D (Cholecalciferol (Vitamin D3) 10 Mcg Tablet) 20 mcg PO DAILY [facility] Last Admin: 11/12/21 08:18 Dose: 20 mcg Documented by: Vortioxetine (Vortioxetine Hydrobromide 10 Mg Tablet) 10 mg PO DAILY@1700 [facility] Last Admin: 11/12/21 17:02 Dose: Not Given Documented by: Allergies Allergies Allergy/AdvReac Type Severity Reaction Status Date / Time fentanyl [FENTANYL] Allergy Intermediate unknown Verified 05/22/21 11:43 Assessment & Plan Assessment & Plan (1) Depression: Status: Acute Code(s): F32.A - Depression, unspecified Assessment and Plan: The patient is an elderly male with a long history of major depressive disorder and TBI, admitted before, very well known by the service.? He has been admitted for exacerbation of depression with suicidal ideation without a clear stressor.? Historically, the patient responds to ECT. 10/21/21: Endorsing SI, hoplessness and depression. Will discus with team 10/21 ref mental state +/- modifying treatment/dispo planning. Discharge on hold consider ECT would clearly benefit from outpatient therapy which has been hard to arrange patient not to logical would benefit best from and person treatment. 10/22/2021 Patient continues depressed intermittently hopeless helpless despondent. May do better with intermittent ECT than 3 times a week consider dopamine agonist 10/24/21 evaluate ect 10/26: pt reports feeling very hopeless/helpless, passive SI, denies plan or intent. anxious mood, reports ativan helpful. Looking forward to have ECT on Thursday. no medication changes. 10/27: continues to present as very hopeless/helpless, passive SI, no plan or intent. pt reports heartburn, added pepcid 20mg po BID. stop remeron start nortriptyline mirapex patient quite anxious ruminating given education regarding CBT Continue Seroquel 11/05/2021 Continue Seroquel 50 at bedtime nortriptyline at HS check nortriptyline level ECT scheduled would benefit from ongoing physical activity 11/06/2021 Evaluate response to ECT check nortriptyline level continue Seroquel continue Mirapex 11/07/2021 Patient anxious dysphoric encourage ongoing cognitive and supportive strategies in addition to biological once. He additional ECT scheduled check nortriptyline level lower Trintellix secondary to GI side effects 11/08: Continue current plans and discuss continuation of the CT with Dr. Haskins on Thursday of next week 11/09: Continue current regimen and plans with him not wanting to go through his ECT treatment on 11/11 11/10: Continue current regimen and plans. Discontinue NPO in preparation for his ECT which he does not want to have on Thursday11/11/2021 Continue Trintellix nortriptyline at bedtime Seroquel at HS. Patient seems more motivated future oriented feels like he can better manage discharge him be more motivated to engage in treatment denies any active SI 11/12/21 Stop ect d/c planning encourage outpt tx denies si cont trintellix nortrip (2) HTN (hypertension): Status: Acute Code(s): I10 - Essential (primary) hypertension Assessment and Plan: cont tx plan monitor bp I spent minutes with the patient and/or on the patient floor today, greater than?50% of which was spent counseling/coordinating care. Reason for contiued inpatient stay Substantial Risk for: rapid decompensation and med/psych decompensation
[2021-11-13 06:00] VITALS: BP 143/79; PULSE 93; RESP 16; TEMP 36.9; O2SAT 97
[2021-11-13] MEDS: Acetaminophen 325 MG TABLET 650 MG PO ×2 (06:52→21:14)
[2021-11-13] MEDS: Famotidine 20 MG TABLET PO ×2 (06:55→17:25)
--- NOTE | 2021-11-13 08:00 | ECG_ITS ---
Test Reason : on pysch meds Blood Pressure : / mmHG Vent. Rate : 084 BPM Atrial Rate : 084 BPM P-R Int : 206 ms QRS Dur : 110 ms QT Int : 392 ms P-R-T Axes : 043 006 081 degrees QTc Int : 463 ms Normal sinus rhythm Normal ECG When compared with ECG of 01-NOV-2021 08:29, No significant change was found Referred By: Addy Haskins Electronically Signed By:Remberto Mathew
[2021-11-13 09:20] VITALS: BP 143/79; PULSE 93
[2021-11-13] MEDS: Finasteride 5 MG TABLET PO (09:20)
[2021-11-13] MEDS: amLODIPine Besylate 10 MG TABLET PO (09:20)
[2021-11-13] MEDS: Gabapentin 400 MG CAPSULE PO ×3 (09:20→21:05)
[2021-11-13] MEDS: Cholecalciferol (Vitamin D3) 10 MCG TABLET 20 MCG PO (09:20)
[2021-11-13 09:21] VITALS: BP 143/79; PULSE 93
[2021-11-13] MEDS: Multivitamin TABLET 1 TAB PO (09:21)
[2021-11-13] MEDS: lamoTRIgine 100 MG TABLET 200 MG PO ×2 (09:21→21:04)
[2021-11-13] MEDS: Pramipexole Di-HCL 0.125 MG TABLET PO ×3 (09:21→21:04)
[2021-11-13] MEDS: lisinopriL 40 MG TABLET PO (09:21)
[2021-11-13 11:56] LABS: Nortriptyline 20 mcg/L (50-150)
[2021-11-13] MEDS: LORazepam 0.5 MG TABLET PO (16:25)
[2021-11-13] MEDS: Vortioxetine Hydrobromide 10 MG TABLET PO (16:25)
--- NOTE | 2021-11-13 17:55 | P.PNPSI_ITS ---
Subjective Subjective Date of Service: 11/14/21 Reason For Visit: MDD SI Subjective Notes: Conditional Voluntary Healthcare Proxy: Yes Interim History: pt has been feeling better generally anxious re discharge case reviewed nursing sw tx team pt seen Medication Compliance: Yes Side effects from medications: Yes Mental Status Exam Mental Status Exam Patient Appearance: Well Grooomed Patient Orientation: Person, Place, Time and Situation Level of Consciousness: Awake Patient Behavior: Cooperative Mood Description: Cheerful and Anxious (less) Affect Description: Appropriate, Relaxed, Cheerful and Apprehensive Ability to Follow Directions: Good Speech Pattern: Appropriate Memory Description: Intact Hallucinations: None Delusions: Not Present Thought Process: Linear Thought Content: positive for Intact, negative for Suicidal Ideation (Denies active SI) or negative for Homicidal Ideation Judgement: Good Judgement and Insight: Somewhat improved mood working at trying to change negative thinking patterns Diagnostics Vital Signs (24Hr): Vital Signs - 24 hr 11/12/21 18:00 11/13/21 06:00 11/13/21 09:20 Temperature 98.5 F 98.4 F Pulse Rate 80 93 93 Respiratory Rate 18 16 Blood Pressure 134/76 143/79 H 143/79 H Pulse Oximetry 97 97 11/13/21 09:21 Temperature Pulse Rate 93 Respiratory Rate Blood Pressure 143/79 H Pulse Oximetry BMI result Body Mass Index 32.0 Labs Results: 10/01/21 19:18 10/01/21 19:18 Labs: Laboratory Results - last 48 hr 11/07/21 07:01 Nortriptyline 20 L Medications Medications Current Medications Acetaminophen (Acetaminophen 325 Mg Tablet) 650 mg PO Q6H PRN PRN Reason: Pain (Scale Score 1-3) Last Admin: 11/13/21 06:52 Dose: 650 mg Documented by: Al Hydroxide/Mg Hydroxide (Magnesium Hydrox/Alum Hydrox 30 Ml Oral.Susp) 30 ml PO Q6H PRN PRN Reason: Heartburn/Nausea Last Admin: 11/09/21 20:47 Dose: 30 ml Documented by: Albuterol Sulfate (Albuterol Sulfate 90 Mcg 8 Gm Inhaler) 2 puff INHALE Q6H PRN PRN Reason: Shortness Of Breath Last Admin: 11/07/21 20:45 Dose: 2 puff Documented by: Amlodipine Besylate (Amlodipine Besylate 10 Mg Tablet) 10 mg PO DAILY [facility]; Protocol Last Admin: 11/13/21 09:20 Dose: 10 mg Documented by: Artificial Tears (Artificial Tears 15 Ml Drops) 1 drop EYE-BOTH Q1H PRN PRN Reason: Dry Eye(S) Last Admin: 10/12/21 14:13 Dose: 1 drop Documented by: Docusate Sodium (Docusate Sodium 100 Mg Capsule) 100 mg PO BEDTIME PRN PRN Reason: Constipation Last Admin: 11/03/21 19:56 Dose: 100 mg Documented by: Docusate Sodium (Docusate Sodium 100 Mg Capsule) 100 mg PO BID PRN PRN Reason: Constipation Last Admin: 10/19/21 09:38 Dose: 100 mg Documented by: Famotidine (Famotidine 20 Mg Tablet) 20 mg PO BID@0700,1730 [facility] Last Admin: 11/13/21 17:25 Dose: 20 mg Documented by: Finasteride (Finasteride 5 Mg Tablet) 5 mg PO DAILY [facility] Last Admin: 11/13/21 09:20 Dose: 5 mg Documented by: Gabapentin (Gabapentin 400 Mg Capsule) 400 mg PO TID [facility] Last Admin: 11/13/21 15:33 Dose: 400 mg Documented by: Hydrocortisone (Hydrocortisone 1 % Cream 28.35 Gm Tube) 1 appl TOPICAL Q4H PRN; Protocol PRN Reason: RECTAL IRRITATION Last Admin: 11/10/21 21:54 Dose: 1 appl Documented by: Hydroxyzine HCl (Hydroxyzine Hcl 25 Mg Tablet) 25 mg PO BEDTIME PRN PRN Reason: Anxiety Last Admin: 10/20/21 20:35 Dose: 25 mg Documented by: Ibuprofen (Ibuprofen 400 Mg Tablet) 400 mg PO Q6H PRN PRN Reason: Pain, Moderate (Pain Scale 4-6 Last Admin: 11/12/21 05:22 Dose: 400 mg Documented by: Lamotrigine (Lamotrigine 100 Mg Tablet) 200 mg PO BID [facility] Last Admin: 11/13/21 09:21 Dose: 200 mg Documented by: Latanoprost (Latanoprost 0.005 % Ophth No 2.5 Ml Drops) 1 drop EYE-BOTH BEDTIME [facility] Last Admin: 11/12/21 21:16 Dose: 1 drop Documented by: Lidocaine (Lidocaine 4 % Patch Adh..Patch) 1 patch TRANSDERMA DAILY [facility]; Protocol Last Admin: 11/13/21 09:22 Dose: Not Given Documented by: Lisinopril (Lisinopril 40 Mg Tablet) 40 mg PO DAILY [facility]; Protocol Last Admin: 11/13/21 09:21 Dose: 40 mg Documented by: Lorazepam (Lorazepam 0.5 Mg Tablet) 0.5 mg PO Q4H PRN PRN Reason: Anxiety Last Admin: 11/13/21 16:25 Dose: 0.5 mg Documented by: Lorazepam (Lorazepam 1 Mg Tablet) 1 mg PO BEDTIME [facility] Last Admin: 11/12/21 21:16 Dose: 1 mg Documented by: Magnesium Hydroxide (Milk Of Magnesia 30 Ml Oral.Susp) 30 ml PO DAILY PRN PRN Reason: Constipation Last Admin: 10/11/21 15:55 Dose: 30 ml Documented by: Magnesium Hydroxide (Milk Of Magnesia 30 Ml Oral.Susp) 30 ml PO Q72H PRN PRN Reason: Constipation Melatonin (Melatonin 3 Mg Tablet) 6 mg PO BEDTIME [facility] Last Admin: 11/12/21 21:16 Dose: 6 mg Documented by: Miconazole Nitrate (Miconazole 2 % Extra Thick Cr 56.7 Gm Tube) 1 appl TOPICAL BID [facility]; Protocol Last Admin: 11/13/21 09:21 Dose: Not Given Documented by: Multivitamins/Vitamin C (Multivitamin Tablet) 1 tab PO DAILY [facility] Last Admin: 11/13/21 09:21 Dose: 1 tab Documented by: Nortriptyline HCl (Nortriptyline Hcl 10 Mg Capsule) 30 mg PO BEDTIME [facility] Last Admin: 11/12/21 21:16 Dose: 30 mg Documented by: Pharmacy Consult (Consult Rx Other Drug Dosing) 1 each MISCELLANE DAILY PRN PRN Reason: Consult order Polyethylene Glycol (Polyethylene Glycol 3350 17 Gm Powd.Pack) 17 gm PO DAILY PRN PRN Reason: Constipation Last Admin: 10/05/21 15:53 Dose: 17 gm Documented by: Polyethylene Glycol (Polyethylene Glycol 3350 17 Gm Powd.Pack) 17 gm PO DAILY@1600 [facility] Last Admin: 11/13/21 15:33 Dose: Not Given Documented by: Pramipexole Dihydrochloride (Pramipexole Di-Hcl 0.125 Mg Tablet) 0.125 mg PO TID [facility] Last Admin: 11/13/21 15:33 Dose: 0.125 mg Documented by: Quetiapine Fumarate (Quetiapine Fumarate 25 Mg Tablet) 25 mg PO BID PRN PRN Reason: Anxiety Last Admin: 11/09/21 15:45 Dose: 25 mg Documented by: Quetiapine Fumarate (Quetiapine Fumarate 50 Mg Tablet) 50 mg PO BEDTIME [facility] Last Admin: 11/12/21 21:17 Dose: 50 mg Documented by: Trazodone HCl (Trazodone Hcl 50 Mg Tablet) 50 mg PO BEDTIME PRN PRN Reason: Insomnia Last Admin: 10/01/21 23:41 Dose: 50 mg Documented by: Trazodone HCl (Trazodone Hcl 50 Mg Tablet) 150 mg PO BEDTIME [facility] Last Admin: 11/12/21 21:17 Dose: 150 mg Documented by: Vitamin D (Cholecalciferol (Vitamin D3) 10 Mcg Tablet) 20 mcg PO DAILY [facility] Last Admin: 11/13/21 09:20 Dose: 20 mcg Documented by: Vortioxetine (Vortioxetine Hydrobromide 10 Mg Tablet) 10 mg PO DAILY@1700 [facility] Last Admin: 11/13/21 16:25 Dose: 10 mg Documented by: Allergies Allergies Allergy/AdvReac Type Severity Reaction Status Date / Time fentanyl [FENTANYL] Allergy Intermediate unknown Verified 05/22/21 11:43 Assessment & Plan Assessment & Plan (1) Depression: Status: Acute Code(s): F32.A - Depression, unspecified Assessment and Plan: The patient is an elderly male with a long history of major depressive disorder and TBI, admitted before, very well known by the service.? He has been admitted for exacerbation of depression with suicidal ideation without a clear stressor.? Historically, the patient responds to ECT. 10/21/21: Endorsing SI, hoplessness and depression. Will discus with team 10/21 ref mental state +/- modifying treatment/dispo planning. Discharge on hold consider ECT would clearly benefit from outpatient therapy which has been hard to arrange patient not to logical would benefit best from and person treatment. 10/22/2021 Patient continues depressed intermittently hopeless helpless despondent. May do better with intermittent ECT than 3 times a week consider dopamine agonist 10/24/21 evaluate ect 10/26: pt reports feeling very hopeless/helpless, passive SI, denies plan or intent. anxious mood, reports ativan helpful. Looking forward to have ECT on Thursday. no medication changes. 10/27: continues to present as very hopeless/helpless, passive SI, no plan or intent. pt reports heartburn, added pepcid 20mg po BID. stop remeron start nortriptyline mirapex patient quite anxious ruminating given education regarding CBT Continue Seroquel 11/05/2021 Continue Seroquel 50 at bedtime nortriptyline at HS check nortriptyline level ECT scheduled would benefit from ongoing physical activity 11/06/2021 Evaluate response to ECT check nortriptyline level continue Seroquel continue Mirapex 11/07/2021 Patient anxious dysphoric encourage ongoing cognitive and supportive strategies in addition to biological once. He additional ECT scheduled check nortriptyline level lower Trintellix secondary to GI side effects 11/08: Continue current plans and discuss continuation of the CT with Dr. Haskins on Thursday of next week 11/09: Continue current regimen and plans with him not wanting to go through his ECT treatment on 11/11 11/10: Continue current regimen and plans. Discontinue NPO in preparation for his ECT which he does not want to have on Thursday11/11/2021 Continue Trintellix nortriptyline at bedtime Seroquel at HS. Patient seems more motivated future oriented feels like he can better manage discharge him be more motivated to engage in treatment denies any active SI 11/12/21 Stop ect d/c planning encourage outpt tx denies si cont trintellix nortrip 11/13/21 discharge tomm idf stable remains covid neg (2) HTN (hypertension): Status: Acute Code(s): I10 - Essential (primary) hypertension Assessment and Plan: cont tx plan monitor bp I spent minutes with the patient and/or on the patient floor today, gr eater than?50% of which was spent counseling/coordinating care. Reason for contiued inpatient stay Substantial Risk for: inability to function and rapid decompensation
[2021-11-13 20:08] VITALS: BP 130/71; PULSE 73; RESP 18; TEMP 36.3; O2SAT 94
[2021-11-13] MEDS: Miconazole 2 % Extra Thick Cr 56.7 Gm Tube 1 APPL TOPICAL (21:03)
[2021-11-13] MEDS: LORazepam 1 MG TABLET PO (21:04)
[2021-11-13] MEDS: QUEtiapine Fumarate 50 MG TABLET PO (21:04)
[2021-11-13] MEDS: traZODone HCL 50 MG TABLET 150 MG PO (21:04)
[2021-11-13] MEDS: Melatonin 3 MG TABLET 6 MG PO (21:05)
[2021-11-13] MEDS: Nortriptyline HCl 10 MG CAPSULE 30 MG PO (21:22)
[2021-11-13] MEDS: Latanoprost 0.005 % Ophth Sol 2.5 ML DROPS 1 DROP EYE-BOTH (21:33)
[2021-11-14] MEDS: Ibuprofen 400 MG TABLET PO (04:21)
[2021-11-14] MEDS: LORazepam 0.5 MG TABLET PO (04:22)
[2021-11-14 04:56] VITALS: BP 150/80; PULSE 60; RESP 19; TEMP 36.3; O2SAT 97
[2021-11-14 06:00] VITALS: BP 152/84; PULSE 66; TEMP 36.5; O2SAT 98
[2021-11-14 08:16] VITALS: BP 152/85; PULSE 66
[2021-11-14] MEDS: Gabapentin 400 MG CAPSULE PO (08:16)
[2021-11-14] MEDS: lamoTRIgine 100 MG TABLET 200 MG PO (08:16)
[2021-11-14] MEDS: lisinopriL 40 MG TABLET PO (08:16)
[2021-11-14] MEDS: Pramipexole Di-HCL 0.125 MG TABLET PO (08:16)
[2021-11-14] MEDS: Cholecalciferol (Vitamin D3) 10 MCG TABLET 20 MCG PO (08:16)
[2021-11-14] MEDS: Multivitamin TABLET 1 TAB PO (08:16)
[2021-11-14] MEDS: Finasteride 5 MG TABLET PO (08:16)
[2021-11-14] MEDS: amLODIPine Besylate 10 MG TABLET PO (08:22)
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
== END 2021-11-14 09:40 | disposition other institution (70) | DRG 885 ==
LOC: HO.ED 20:53 → HO.PGERI 22:16
PROVIDERS: Psychiatry & Neurology Psychiatry; Registered Nurse; Social Worker; Admitting Provider Internal Medicine; Emergency Provider Emergency Medicine; PCP Internal Medicine; Visit Provider Psychiatry & Neurology Psychiatry
PROC: GZB4ZZZ Other Electroconvulsive Therapy (ICD-10-PCS; CPT 90870; principal; 2021-10-07 15:30)
DX: F33.2 Major depressive disorder, recurrent severe without psychotic features (principal); R45.851 Suicidal ideations; I10 Essential (primary) hypertension; F10.21 Alcohol dependence, in remission; Z20.822 Contact with and (suspected) exposure to COVID-19; Z87.820 Personal history of traumatic brain injury; Z88.5 Allergy status to narcotic agent; Z79.1 Long term (current) use of non-steroidal anti-inflammatories (NSAID); Z79.899 Other long term (current) drug therapy
CPT/HCPCS: 0241U; 36415; 80053; 80175; 80307; 80335; 81001; 82306; 83036; 85025; 87635; 90870; 93005; 97162; 99285; J0330; J1885; J2060; J2250; J2405

== ENCOUNTER 2021-12-09 17:32 | Inpatient (IN) | payer MEDICARE, MEDICAID, SELFPAY ==
--- NOTE | ~2021-12-09 | XR_ITS ---
EXAMINATION: XR HIP, RIGHT CLINICAL INFORMATION: Hip pain COMPARISON: Right hip 01/20/2011 TECHNIQUE: Two views of the right hip. FINDINGS: A left hip prosthesis is present. In the right hip, there is a healed femoral neck fracture with ghost tracks seen from C3 prior femoral neck screws. No acute fracture is seen. Degenerative changes are present in the right hip with sclerosis and osteophytes which appears slightly progressed since 2010. XR/XR hip RT min 2V IMPRESSION: Healed old fracture right femoral neck. The femoral neck screws that had been present in 2010 has been removed. No acute finding.
[2021-12-09 17:56] VITALS: BP 169/90; BP 172/93; PULSE 77; PULSE 82; RESP 18; TEMP 36.4; O2SAT 98; BMI 28.8
--- NOTE | 2021-12-09 18:08 | ECG_ITS ---
Test Reason : CHEST PAIN Blood Pressure : / mmHG Vent. Rate : 082 BPM Atrial Rate : 082 BPM P-R Int : 198 ms QRS Dur : 092 ms QT Int : 398 ms P-R-T Axes : 031 -24 082 degrees QTc Int : 464 ms Poor data quality Normal sinus rhythm Normal ECG When compared with ECG of 13-NOV-2021 10:47, No significant change was found Referred By: Danny Rubio Electronically Signed By:MO HERNANDEZ MD
--- NOTE | 2021-12-09 18:34 | ED.PSYCH ---
HPI - Psych General Chief Complaint: Psychiatric Symptoms Stated Complaint: SI w/ plan, voluntary Time Seen by Provider: 12/09/21 18:08 Source: patient Mode of arrival: EMS Limitations: no limitations History of Present Illness HPI Narrative: Patient with history of major depression status post multiple times ECT recently admitted and discharged on 11/05 comes here for increased depression lately no acute precipitating factor felt like going to the road on wheelchair to get killed. No hallucination or delusions history of same in the past when admitted Related Data Home Medications Medication Instructions Recorded Confirmed latanoprost 0.005 % eye drops 1 drp OPHTHALMIC (EYE) BEDTIME 05/22/21 12/09/21 magnesium hydroxide 400 mg/5 mL 2,400 mg PO Q72H PRN 05/22/21 12/09/21 oral suspension (Milk of Magnesia) rjiyxsmjrlel-fceksgim-tgtwud tablet 1 tab PO DAILY 05/22/21 12/09/21 polyethylene glycol 3350 17 17 g PO DAILY PRN 05/22/21 12/09/21 gram/dose oral powder polyethylene glycol 3350 17 17 g PO DAILY@1600 05/22/21 12/09/21 gram/dose oral powder psyllium husk 0.4 gram capsule 0.4 g PO DAILY 05/22/21 12/09/21 (Metamucil) acetaminophen 325 mg tablet 650 mg PO Q6H PRN 10/01/21 12/09/21 albuterol sulfate 90 mcg/actuation 2 puff INHALATION Q6H PRN 10/01/21 12/09/21 aerosol inhaler artifi.tears(hypromellose)(PF) 0.3 1 drp OPHTHALMIC (EYE) Q1H PRN 10/01/21 12/09/21 % eye drops hydrocortisone 1 % topical cream 1 appl TOPICAL Q4H PRN 10/01/21 12/09/21 miconazole nitrate 2 % topical 1 appl TOPICAL BID 10/01/21 12/09/21 cream lorazepam 0.5 mg tablet 0.5 mg PO QID PRN MDD 2 mg 12/09/21 12/09/21 Previous Rx's Medication Instructions Recorded ibuprofen 400 mg tablet 400 mg PO Q6H PRN 30 Days #60 tab 06/20/21 lisinopril 40 mg tablet 40 mg PO DAILY 30 Days #30 tab 06/20/21 amlodipine 10 mg tablet 10 mg PO DAILY 30 Days #30 tab 07/29/21 gabapentin 400 mg capsule 400 mg PO TID 30 Days #90 cap 07/29/21 lidocaine 4 % topical patch 1 patch TRANSDERMAL DAILY 30 Days 07/29/21 (Lidocaine Pain Relief) #30 ea lorazepam 1 mg tablet 1 mg PO BEDTIME 30 Days #30 tab 10/20/21 cholecalciferol (vitamin D3) 10 20 mcg PO DAILY #30 tab 11/11/21 mcg (400 unit) tablet (Vitamin D3) finasteride 5 mg tablet 1 tab PO DAILY #30 tab 11/11/21 lamotrigine 200 mg tablet 1 tab PO BID #60 tab 11/11/21 melatonin 5 mg tablet 5 mg PO BEDTIME 30 Days #30 tab 11/11/21 nortriptyline 10 mg capsule 30 mg PO BEDTIME #90 cap 11/11/21 pramipexole 0.125 mg tablet 0.125 mg PO TID 30 Days #90 tab 11/11/21 quetiapine 25 mg tablet 25 mg PO BID PRN #60 tab 11/11/21 quetiapine 50 mg tablet 50 mg PO BEDTIME #30 tab 11/11/21 trazodone 150 mg tablet 1 tab PO BEDTIME #30 tab 11/11/21 vortioxetine 10 mg tablet 10 mg PO DAILY@1700 30 Days #30 tab 11/11/21 (Trintellix) Allergies Allergy/AdvReac Type Severity Reaction Status Date / Time fentanyl [FENTANYL] Allergy Intermediate unknown Verified 05/22/21 11:43 Review of Systems Review of Systems: Yes all other systems are reviewed and are negative PMFSH Past Medical History Medical History Alcohol use disorder, severe, in sustained remission Cognitive and neurobehavioral dysfunction following brain injury Hernia HTN (hypertension) Major depressive disorder, recurrent Major depressive disorder, recurrent severe without psychotic features Subdural hematoma TBI (traumatic brain injury) Surgical History H/O brain surgery H/O umbilical hernia repair History of hip replacement S/P cholecystectomy Social History Social History Household Members: None Household Members Other:: Pt lives in a fpc Housing: Other Housing Other:: fpc. Do you presently have visiting nurse or other home services: No Alcohol intake: former Patient Tobacco Use Status: Never used Tobacco Use of substances other than those prescribed or required for medical reasons: No Advance Directives: No Advance Directives Information Provided: No Advance Directives Date on File: 05/27/19 service: No Sexual orientation: Straight/Heterosexual Physical Exam Vital Signs: Vital Signs: Last Vital Signs Temp 97.7 F 12/10/21 00:00 Pulse 68 12/10/21 00:00 Resp 16 12/10/21 00:00 BP 141/68 H 12/10/21 00:00 Pulse Ox 95 12/10/21 00:00 BMI result Body Mass Index 28.8 Appearance: Alert. Oriented X3. No acute distress. Eyes: PERRLA, No Nystagmus ENT: Pharynx normal. Oral Mucosa moist Neck: Normal inspection. Neck supple. CVS: Normal heart rate and rhythm. Pulses normal. Respiratory: No respiratory distress. Equal air entry bilateral, no wheezing/rales/rhonchi Abdomen: Soft and nontender. Bowel sounds are present, no mass palpable, no CVA tenderness Skin: Skin warm and dry. Normal skin color. Normal skin turgor. Extremities: No lower extremity edema. No calf tenderness psych: Mood depressed, hopeless, judgment fair, no hallucination or delusion no current suicidal feeling Neuro: Oriented X 3. No motor deficit. No sensory deficit.No cerebellar signs , cranial nerves II-XII intact MDM - Psych MDM Narrative Medical decision making narrative: Patient with severe depression with suicidal behavior will get [facility] consult plan for inpatient admission Medical Records Attestation: I reviewed the patient's medical records. Lab Data Attestation: I reviewed the patient's lab results. Result diagrams: 12/09/21 19:15 12/09/21 19:15 Labs: Lab Results 12/09/21 12/09/21 12/09/21 Range/Units 19:15 19:15 19:15 WBC 5.6 (4.8-10.8) X10*3/uL RBC 4.32 L (4.60-5.80) X10*6/uL Hgb 14.1 (14.0-18.0) g/dl Hct 41.8 L (42.0-52.0) % MCV 96.8 (80.0-98.0) fL MCH 32.6 (27.0-33.0) pg MCHC 33.7 (31.0-36.0) g/dl RDW 11.9 (11.0-16.0) % Plt Count 210 D (160-400) X10*3/uL MPV 9.5 (9.4-12.4) fL Immature Gran % (Auto) 0.9 H (0.0-0.4) % Neut % (Auto) 61.7 (45-73) % Lymph % (Auto) 26.5 (20-40) % [place] % (Auto) 6.7 (2-11) % Eos % (Auto) 3.8 (0-4) % Baso % (Auto) 0.4 (0-2) % Lymph # (Auto) 1.5 (1.2-4.9) X10*3/uL [place] # (Auto) 0.4 (0.1-1.2) X10*3/uL Eos # (Auto) 0.2 (0.0-0.4) X10*3/uL Baso # (Auto) 0.0 (0.0-0.2) X10*3/uL Abs Immat Gran (auto) 0.05 H (0.00-0.03) X10*3/uL Absolute Neuts (auto) 3.4 (2.0-8.3) x10*3/uL Absolute Nucleated RBC 0.000 (0.0-0.012) X10*3/uL Nucleated RBC % (auto) 0.0 (0.0-0.2) /100WBC Sodium 141 (135-145) mmol/L Potassium 4.4 (3.3-5.1) mmol/L Chloride 106 (96-108) mmol/L Carbon Dioxide 24 (22-29) mmol/L Anion Gap 15 (12-20) BUN 22 H (9-16) mg/dL Creatinine 1.08 (0.5-1.4) mg/dL Estim Creat Clear Calc 84.6 Estimated GFR > 60 Random Glucose 89 D (60-115) mg/dL Calcium 10.0 D (8.4-10.2) mg/dL Total Bilirubin 0.3 (0.0-1.0) mg/dL AST 27 (5-37) U/L ALT 47 H (0-40) U/L Alkaline Phosphatase 88 D (39-117) U/L Total Protein 7.6 (6.5-8.0) g/dL Albumin 4.7 (3.5-5.0) g/dL COVID-19 (RACHEL) Negative (Negative) COVID-19 Clin Com See Note ECG Data Attestation: I personally reviewed and interpreted this ECG as follows: Interpretation: Normal sinus rhythm heart rate 82 beats per minute normal intervals normal axis normal QT interval no acute ischemic changes Discharge Plan Discharge Clinical Impression: Major depressive disorder, recurrent severe without psychotic features, Suicidal ideation Prescriptions: No Action amlodipine 10 mg tablet 10 mg PO DAILY 30 Days Qty: 30 RF: 1 gabapentin 400 mg Capsule 400 mg PO TID 30 Days Qty: 90 RF: 2 lidocaine [Lidocaine Pain Relief] 4 % Adhesive Patch,Medicated 1 patch transdermal DAILY 30 Days Qty: 30 RF: 2 latanoprost 0.005 % drops 1 drp ophthalmic (eye) BEDTIME RF: 0 magnesium hydroxide [Milk of Magnesia] 400 mg/5 mL suspension 2,400 mg PO Q72H PRN (Reason: Constipation) RF: 0 polyethylene glycol 3350 17 gram/dose powder 17 g PO DAILY PRN (Reason: Constipation) RF: 0 polyethylene glycol 3350 17 gram/dose powder 17 g PO DAILY@1600 RF: 0 psyllium husk [Metamucil] 0.4 gram capsule 0.4 g PO DAILY RF: 0 rkaxzvhugqbm-kxgbudhg-jehvjk Tablet 1 tab PO DAILY RF: 0 ibuprofen 400 mg Tablet 400 mg PO Q6H PRN (Reason: Pain, Moderate (Pain Scale 4-6) 30 Days Qty: 60 RF: 0 lisinopril 40 mg tablet 40 mg PO DAILY 30 Days Qty: 30 RF: 2 acetaminophen 325 mg Tablet 650 mg PO Q6H PRN (Reason: Pain (Scale Score 1-3)) RF: 0 miconazole nitrate 2 % Cream 1 appl TOPICAL BID RF: 0 hydrocortisone 1 % Cream 1 appl TOPICAL Q4H PRN (Reason: RECTAL IRRITATION) RF: 0 albuterol sulfate 90 mcg/actuation Hfa Aerosol Inhaler 2 puff INHALATION Q6H PRN (Reason: Shortness Of Breath) RF: 0 artifi.tears(hypromellose)(PF) 0.3 % Drops 1 drp OPHTHALMIC (EYE) Q1H PRN (Reason: Dry Eye(S)) RF: 0 lorazepam 1 mg Tablet 1 mg PO BEDTIME 30 Days Qty: 30 RF: 2 Trintellix 10 mg Tablet 10 mg PO DAILY@1700 30 Days Qty: 30 RF: 2 nortriptyline 10 mg Capsule 30 mg PO BEDTIME Qty: 90 RF: 2 pramipexole 0.125 mg Tablet 0.125 mg PO TID 30 Days Qty: 90 RF: 2 cholecalciferol (vitamin D3) [Vitamin D3] 10 mcg (400 unit) Tablet 20 mcg PO DAILY Qty: 30 RF: 2 quetiapine 50 mg Tablet 50 mg PO BEDTIME Qty: 30 RF: 2 quetiapine 25 mg Tablet 25 mg PO BID PRN (Reason: Anxiety) Qty: 60 RF: 0 lamotrigine 200 mg tablet 1 tab PO BID Qty: 60 RF: 1 trazodone 150 mg tablet 1 tab PO BEDTIME Qty: 30 RF: 1 finasteride 5 mg tablet 1 tab PO DAILY Qty: 30 RF: 2 melatonin 5 mg Tablet 5 mg PO BEDTIME 30 Days Qty: 30 RF: 2 lorazepam 0.5 mg tablet 0.5 mg PO QID MDD 2 mg PRN (Reason: Anxiety) RF: 0
[2021-12-09 19:21] LABS: MANUAL DIFF FLAG NO
[2021-12-09 19:23] LABS: Basophils Percent Auto 0.4 % (0-2); Eosinophils Absolute Auto 0.2 X10*3/uL (0.0-0.4); Eosinophils Percent Auto 3.8 % (0-4); Hematocrit 41.8 % (42.0-52.0); Hemoglobin 14.1 g/dl (14.0-18.0); Imm Gran Abs Auto 0.05 X10*3/uL (0.00-0.03); Imm Gran Pct Auto 0.9 % (0.0-0.4); Lymphocytes Absolute Auto 1.5 X10*3/uL (1.2-4.9); Lymphocytes Percent Auto 26.5 % (20-40); Mean Corpuscular HGB Conc 33.7 g/dl (31.0-36.0); Mean Corpuscular Hemoglobin 32.6 pg (27.0-33.0); Mean Corpuscular Volume 96.8 fL (80.0-98.0); Mean Platelet Volume 9.5 fL (9.4-12.4); Monocytes Absolute Auto 0.4 X10*3/uL (0.1-1.2); Monocytes Percent Auto 6.7 % (2-11); Neutrophils Absolute Auto 3.4 x10*3/uL (2.0-8.3); Neutrophils Percent Auto 61.7 % (45-73); Platelet Count 210 X10*3/uL (160-400); Red Blood Count 4.32 X10*6/uL (4.60-5.80); Red Cell Distribution Width 11.9 % (11.0-16.0); White Blood Count 5.6 X10*3/uL (4.8-10.8)
[2021-12-09 19:38] LABS: COVID-19 Test Negative (Negative)
[2021-12-09 19:46] LABS: Alanine Aminotransferase 47 U/L (0-40); Albumin Level 4.7 g/dL (3.5-5.0); Alkaline Phosphatase 88 U/L (39-117); Anion Gap 15 (12-20); Aspartate Amino Transferase 27 U/L (5-37); Bilirubin Total 0.3 mg/dL (0.0-1.0); Blood Urea Nitrogen 22 mg/dL (9-16); Carbon Dioxide 24 mmol/L (22-29); Chloride 106 mmol/L (96-108); Creatinine Clr Calc Pharmacy 84.6; Estimated Glomerular Filt Rate > 60; Glucose Random 89 mg/dL (60-115); Potassium 4.4 mmol/L (3.3-5.1); Sodium 141 mmol/L (135-145); Total Protein 7.6 g/dL (6.5-8.0)
[2021-12-09] MEDS: LORazepam 1 MG TABLET PO ×2 (20:33→23:18)
[2021-12-09] MEDS: Ibuprofen 400 MG TABLET PO (20:33)
[2021-12-09] MEDS: Acetaminophen 325 MG TABLET 650 MG PO (20:40)
[2021-12-09 21:55] VITALS: BP 161/74; PULSE 81; RESP 16; TEMP 36.4; O2SAT 95
--- NOTE | 2021-12-09 22:56 | PHA.MEDREC ---
Pharmacy Consult ? Medication Reconciliation Pharmacy has completed the medication reconciliation. RN entered and did med list. Confirmed lamotrigine and lisinopril dose with patient Thanks Ina Hunter
[2021-12-09] MEDS: traZODone HCL 50 MG TABLET 150 MG PO (23:18)
[2021-12-09] MEDS: Gabapentin 400 MG CAPSULE PO (23:18)
[2021-12-09] MEDS: lamoTRIgine 100 MG TABLET 200 MG PO (23:18)
[2021-12-09] MEDS: QUEtiapine Fumarate 50 MG TABLET PO (23:18)
[2021-12-10] VITALS: BP 141/68; PULSE 68; RESP 16; TEMP 36.5; O2SAT 95
[2021-12-10] MEDS: lisinopriL 40 MG TABLET PO (09:04)
[2021-12-10] MEDS: Multivitamin TABLET 1 TAB PO (09:04)
[2021-12-10] MEDS: Finasteride 5 MG TABLET PO (09:04)
[2021-12-10] MEDS: amLODIPine Besylate 10 MG TABLET PO (09:04)
[2021-12-10] MEDS: Gabapentin 400 MG CAPSULE PO ×3 (09:04→21:38)
[2021-12-10] MEDS: lamoTRIgine 100 MG TABLET 200 MG PO ×2 (09:04→21:38)
[2021-12-10 09:08] VITALS: BP 166/84; PULSE 68; RESP 16; O2SAT 98
[2021-12-10] MEDS: Cholecalciferol (Vitamin D3) 10 MCG TABLET 20 MCG PO (09:43)
[2021-12-10] MEDS: Pramipexole Di-HCL 0.125 MG TABLET PO ×3 (09:43→21:38)
[2021-12-10] MEDS: LORazepam 0.5 MG TABLET PO ×2 (11:01→15:35)
[2021-12-10] MEDS: QUEtiapine Fumarate 25 MG TABLET PO (11:02)
--- NOTE | 2021-12-10 11:10 | PC.NURSE ---
Pt alert/oriented. Speech slow (baseline for pt). Seen by CARE team. Pt denies SI or HI to this rn stating I feel safe here Requesting/given PRN Ativan and Seroquel as charted.
[2021-12-10] MEDS: Ibuprofen 400 MG TABLET PO (15:33)
--- NOTE | 2021-12-10 16:20 | PC.NURSE ---
contact made to sharla RN, pt to go to floor at 7pm due to patient nurse ratio 1:10
[2021-12-10] MEDS: Vortioxetine Hydrobromide 10 MG TABLET PO (16:56)
[2021-12-10 19:11] VITALS: BP 154/79; PULSE 67; RESP 16; TEMP 37.1; O2SAT 97
[2021-12-10 19:13] VITALS: BP 154/79; PULSE 74; RESP 16; TEMP 36.6; O2SAT 99
--- NOTE | 2021-12-10 19:16 | PC.NURSE ---
Attempted to give report x 2
[2021-12-10 19:45] LABS: Amphetamine Screen Urine Not Detected (Not Detect); Barbiturates, Urine Not Detected (Not Detect); Benzodiazepines Screen Urine Not Detected (Not Detect); Cannabinoid Screen Urine Not Detected (Not Detect); Cocaine Screen Urine Not Detected (Not Detect); Fentanyl, urine Not Detected (Not Detect); Opiate Screen Urine Not Detected (Not Detect); Phencyclidine Screen Urine Not Detected (Not Detect)
[2021-12-10 21:25] VITALS: BP 164/80; PULSE 69; RESP 18; TEMP 36.9; O2SAT 97
[2021-12-10] MEDS: Melatonin 3 MG TABLET 6 MG PO (21:37)
[2021-12-10] MEDS: Nortriptyline HCl 10 MG CAPSULE 30 MG PO (21:38)
[2021-12-10] MEDS: QUEtiapine Fumarate 50 MG TABLET PO (21:38)
[2021-12-10] MEDS: traZODone HCL 50 MG TABLET 150 MG PO (21:38)
[2021-12-10] MEDS: LORazepam 1 MG TABLET PO (21:38)
[2021-12-10] MEDS: Latanoprost 0.005 % Ophth Sol 2.5 ML DROPS 1 DROP EYE-BOTH (22:20)
[2021-12-11 00:15] VITALS: BMI 29.5
--- NOTE | 2021-12-11 00:23 | PC.ADMIT ---
Pt. admitted to the geriatric BH unit on 12/10/2021 at 2120 from the ED with an admitting diagnosis of SI. Pt. signed a CV in the ED. Pt. presented with a depressed mood and flat affect, but brightened during admission assessment with RN. Pt. reported he was experiencing SI with a plan to wheel himself in traffic. Pt. denied actually following through with plan despite contradictory information on crisis evaluation. Pt. discussed the fact that in order to get to [address] which has a significant amount of traffic it requires him wheeling himself over a speed bump. Pt. reported feeling increased depression. Pt. stated, I feel like a loser. Pt. feels he should be making more progress. Pt. denied SI during assessment stating, No I wouldn't do anything here because I respect the staff here too much. Pt. denied HI, AH and VH. Pt. contracts for safety. Pt. reported pain 5/10 in right hip and low back. Pt. reported he fell at home in late October/early November, exact date unknown. Pt. reported he was trying to get ready for bed and lost his balance. He reached for his walker but it tipped over. He hit the bed and slid down landing on his right hip. Pt. has his own wheelchair. He will request his walker be brought from home tomorrow. Pt. reported he had already notified his HCP, Patti Farias RN of his admission while in the ED. He stated that it was unnecessary for staff to contact her this evening after arrival to unit. Pt. took HS medications. He was assisted by two staff to get ready and into bed. Pt. was unable to sign legals due to poor eyesight. Reported he will sign tomorrow in better lighting and with reading glasses which are in belongings that haven't been checked in yet. Safety tool completed with pt. All admission assessments and treatment plan completed.
--- NOTE | 2021-12-11 00:35 | PC.NURSE ---
RN requested a consult be entered by Dr. Haskins at 2126 and then by ethylbenzene converter helper provider at 2223. Order entered at 2234 and acknowledged at 224. [place] texted hospitalist at 2248. Hospitalist assessment pending.
[2021-12-11 06:00] VITALS: BP 127/71; PULSE 72; RESP 18; TEMP 36.5; O2SAT 96
[2021-12-11] MEDS: Ibuprofen 400 MG TABLET PO ×2 (06:52→21:34)
[2021-12-11] MEDS: Cholecalciferol (Vitamin D3) 10 MCG TABLET 20 MCG PO (09:14)
[2021-12-11] MEDS: Finasteride 5 MG TABLET PO (09:14)
[2021-12-11] MEDS: amLODIPine Besylate 10 MG TABLET PO (09:14)
[2021-12-11] MEDS: Pramipexole Di-HCL 0.125 MG TABLET PO ×3 (09:15→21:34)
[2021-12-11] MEDS: lisinopriL 40 MG TABLET PO (09:15)
[2021-12-11] MEDS: Multivitamin TABLET 1 TAB PO (09:15)
[2021-12-11] MEDS: lamoTRIgine 100 MG TABLET 200 MG PO ×2 (09:15→21:33)
[2021-12-11] MEDS: Gabapentin 400 MG CAPSULE PO ×3 (09:15→21:33)
--- NOTE | 2021-12-11 10:19 | P.CONIM_ITS ---
History of Present Illness Data of Consult Service Date: 12/11/21 Primary Care Provider: Unknown Physician HPI Reason for consult: HTN, ECT clearance This is a 66 yo M with a PMH as outlined below who is admitted to the inpatient [facility] unit. Medical services consulted for management of HTN and pre- operative evaluation for ECT clerance. Pt seen and examined in his room. He is wheel chair bound. He denies any current chest pain or shortness of breath. He reports he has had 14 ECTs which have helped minimally. Review of Systems Verdana 4l Review of Systems: Verdana 4d negative except Verdana 4d HPI Verdana 4d PMFSH Medical History Alcohol use disorder, severe, in sustained remission Cognitive and neurobehavioral dysfunction following brain injury Hernia HTN (hypertension) Major depressive disorder, recurrent Major depressive disorder, recurrent severe without psychotic features Subdural hematoma TBI (traumatic brain injury) Surgical History H/O brain surgery H/O umbilical hernia repair History of hip replacement S/P cholecystectomy Social History Household Members: Other Household Members Other:: Pt. lives in a retirement. Housing: Other Housing Other:: alf Do you presently have visiting nurse or other home services: Yes Alcohol intake: never Patient Tobacco Use Status: Never used Tobacco Smoked in Last 30 Days: No e-Cigarette/Vaping Use: Never Used Second Hand Smoke Exposure: No Use of substances other than those prescribed or required for medical reasons: No Currently Displaying Signs/Symptoms of Drug Intoxication Withdrawal: No Other Past Substance Use Problem:: Past history of ETOH abuse. Any prior treatment program specific to substance use: Yes (1992, [facility]. Outpatient six week every day for alcohol abuse.) Have you been hit, kicked, punched, or otherwise hurt by someone within the past year? If so, by whom?: No Do you feel safe in your current relationship?: Yes Is there a partner from a previous relationship who is making you feel unsafe now?: No Are you made to feel afraid or neglected: Yes (Pt. reports neglected sometimes because there are some things I can't do ) Spiritual Healthcare Practices: No Lutheran Healthcare Practices: No Cultural Healthcare Practices: No Advance Directives: No Advance Directives Information Provided: No Advance Directives on File: No Advance Directives Date on File: 05/27/19 Healthcare Proxy: No Guardian: No Do you have thoughts of harming others: None Do you have a plan to hurt others: No Plan Recently lost weight without trying: No Nutrition Risks: No Nutritional Risk Poor oral hygiene: No service: No Sexual orientation: Straight/Heterosexual Meds Allergies Allergy/AdvReac Type Severity Reaction Status Date / Time fentanyl [FENTANYL] Allergy Intermediate unknown Verified 05/22/21 11:43 Active Medications: Current Medications Acetaminophen (Acetaminophen 325 Mg Tablet) 650 mg PO Q6H PRN PRN Reason: Pain (Scale Score 1-3) Acetaminophen (Acetaminophen 325 Mg Tablet) 650 mg PO Q6H PRN PRN Reason: Headache/Pain Mild Scale (1-3) Al Hydroxide/Mg Hydroxide (Magnesium Hydrox/Alum Hydrox 30 Ml Oral.Susp) 30 ml PO Q6H PRN PRN Reason: Heartburn/Nausea Albuterol Sulfate (Albuterol Sulfate 90 Mcg 8 Gm Inhaler) 2 puff INHALE Q6H PRN PRN Reason: Shortness Of Breath Amlodipine Besylate (Amlodipine Besylate 10 Mg Tablet) 10 mg PO DAILY [facility]; Protocol Last Admin: 12/11/21 09:14 Dose: 10 mg Documented by: Artificial Tears (Artificial Tears 15 Ml Drops) 1 drop EYE-BOTH Q1H PRN PRN Reason: Dry Eye(S) Finasteride (Finasteride 5 Mg Tablet) 5 mg PO DAILY [facility] Last Admin: 12/11/21 09:14 Dose: 5 mg Documented by: Gabapentin (Gabapentin 400 Mg Capsule) 400 mg PO TID [facility] Last Admin: 12/11/21 09:15 Dose: 400 mg Documented by: Hydroxyzine HCl (Hydroxyzine Hcl 25 Mg Tablet) 25 mg PO BEDTIME PRN PRN Reason: Anxiety Ibuprofen (Ibuprofen 400 Mg Tablet) 400 mg PO Q6H PRN PRN Reason: Pain, Moderate (Pain Scale 4-6 Last Admin: 12/11/21 06:52 Dose: 400 mg Documented by: Lamotrigine (Lamotrigine 100 Mg Tablet) 200 mg PO BID [facility] Last Admin: 12/11/21 09:15 Dose: 200 mg Documented by: Latanoprost (Latanoprost 0.005 % Ophth No 2.5 Ml Drops) 1 drop EYE-BOTH BEDTIME [facility] Last Admin: 12/10/21 22:20 Dose: 1 drop Documented by: Lidocaine (Lidocaine 4 % Patch Adh..Patch) 1 patch TRANSDERMA DAILY [facility]; Protocol Last Admin: 12/10/21 09:09 Dose: Not Given Documented by: Lisinopril (Lisinopril 40 Mg Tablet) 40 mg PO DAILY [facility]; Protocol Last Admin: 12/11/21 09:15 Dose: 40 mg Documented by: Lorazepam (Lorazepam 0.5 Mg Tablet) 0.5 mg PO QID PRN PRN Reason: Anxiety Last Admin: 12/10/21 15:35 Dose: 0.5 mg Documented by: Lorazepam (Lorazepam 1 Mg Tablet) 1 mg PO BEDTIME [facility] Last Admin: 12/10/21 21:38 Dose: 1 mg Documented by: Magnesium Hydroxide (Milk Of Magnesia 30 Ml Oral.Susp) 30 ml PO Q72H PRN PRN Reason: Constipation Magnesium Hydroxide (Milk Of Magnesia 30 Ml Oral.Susp) 30 ml PO DAILY PRN PRN Reason: Constipation Melatonin (Melatonin 3 Mg Tablet) 6 mg PO BEDTIME [facility] Last Admin: 12/10/21 21:37 Dose: 6 mg Documented by: Multivitamins/Vitamin C (Multivitamin Tablet) 1 tab PO DAILY [facility] Last Admin: 12/11/21 09:15 Dose: 1 tab Documented by: Nortriptyline HCl (Nortriptyline Hcl 10 Mg Capsule) 30 mg PO BEDTIME [facility] Last Admin: 12/10/21 21:38 Dose: 30 mg Documented by: Polyethylene Glycol (Polyethylene Glycol 3350 17 Gm Powd.Pack) 17 gm PO DAILY PRN PRN Reason: Constipation Polyethylene Glycol (Polyethylene Glycol 3350 17 Gm Powd.Pack) 17 gm PO DAILY@1600 [facility] Last Admin: 12/10/21 17:00 Dose: Not Given Documented by: Pramipexole Dihydrochloride (Pramipexole Di-Hcl 0.125 Mg Tablet) 0.125 mg PO TID [facility] Last Admin: 12/11/21 09:15 Dose: 0.125 mg Documented by: Psyllium Hydrophilic Mucilloid (Psyllium Seed 3.4 Gm Powd.Pack) 3.4 gm PO DAILY [facility] Last Admin: 12/11/21 09:15 Dose: 3.4 gm Documented by: Quetiapine Fumarate (Quetiapine Fumarate 25 Mg Tablet) 25 mg PO BID PRN PRN Reason: Anxiety Last Admin: 12/10/21 11:02 Dose: 25 mg Documented by: Quetiapine Fumarate (Quetiapine Fumarate 50 Mg Tablet) 50 mg PO BEDTIME [facility] Last Admin: 12/10/21 21:38 Dose: 50 mg Documented by: Trazodone HCl (Trazodone Hcl 50 Mg Tablet) 150 mg PO BEDTIME [facility] Last Admin: 12/10/21 21:38 Dose: 150 mg Documented by: Trazodone HCl (Trazodone Hcl 50 Mg Tablet) 50 mg PO BEDTIME PRN PRN Reason: Insomnia Vitamin D (Cholecalciferol (Vitamin D3) 10 Mcg Tablet) 20 mcg PO DAILY [facility] Last Admin: 12/11/21 09:14 Dose: 20 mcg Documented by: Vortioxetine (Vortioxetine Hydrobromide 10 Mg Tablet) 10 mg PO DAILY@1700 [facility] Last Admin: 12/10/21 16:56 Dose: 10 mg Documented by: Home Medications Medication Instructions Recorded Confirmed Last Taken Type latanoprost 0.005 1 drp OPHTHALMIC 05/22/21 12/09/21 Unknown History % eye drops (EYE) BEDTIME magnesium 2,400 mg PO Q72H 05/22/21 12/09/21 Unknown History hydroxide 400 PRN mg/5 mL oral suspension (Milk of Magnesia) multivitamin-mine 1 tab PO DAILY 05/22/21 12/09/21 10/01/21 History rals-lutein tablet polyethylene 17 g PO DAILY 05/22/21 12/09/21 Unknown History glycol 3350 17 PRN gram/dose oral powder polyethylene 17 g PO 05/22/21 12/09/21 Unknown History glycol 3350 17 DAILY@1600 gram/dose oral powder psyllium husk 0.4 0.4 g PO DAILY 05/22/21 12/09/21 10/01/21 History gram capsule (Metamucil) acetaminophen 325 650 mg PO Q6H 10/01/21 12/09/21 Unknown History mg tablet PRN albuterol sulfate 2 puff 10/01/21 12/09/21 Unknown History 90 mcg/actuation INHALATION Q6H PRN aerosol inhaler artifi.tears(hypr 1 drp OPHTHALMIC 10/01/21 12/09/21 Unknown History omellose)(PF) 0.3 (EYE) Q1H PRN % eye drops hydrocortisone 1 1 appl TOPICAL 10/01/21 12/09/21 Unknown History % topical cream Q4H PRN miconazole 1 appl TOPICAL 10/01/21 12/09/21 Unknown History nitrate 2 % BID topical cream lorazepam 0.5 mg 0.5 mg PO QID 12/09/21 12/09/21 Unknown History tablet PRN MDD 2 mg Physical Exam Verdana 4l Vital Signs and Narrative: Verdana 4d Verdana 4d Vital Signs: Verdana 4d Verdana 4Bd Last Vital Signs Verdana 4d President And Cmo New 4d President And Cmo New 4d Temp 98.4 F 12/10/21 21:25 President And Cmo New 4d Pulse 69 12/10/21 21:25 President And Cmo New 4d Resp 18 12/10/21 21:25 BP 164/80 H 12/10/21 21:25 Pulse Ox 97 12/10/21 21:25 BMI result Body Mass Index 29.5 Const: Other: General - no acute distress, appears comfortable Cardiovascular - regular rate and rhythm, S1-S2 Lungs - normal respiratory effort, clear to auscultation bilaterally, no wheezing Abdomen - soft, nontender, no rebound or guarding Neuro - awake and alert, aaox3 Results Labs CBC and Chem 7: 12/09/21 19:15 12/09/21 19:15 Labs: Laboratory Results - last 24 hr 12/10/21 19:14 Urine Opiates Screen Not Detected Urine Fentanyl Screen Not Detected Ur Barbiturates Screen Not Detected Ur Phencyclidine Scrn Not Detected Ur Amphetamines Screen Not Detected U Benzodiazepines Scrn Not Detected Urine Cocaine Screen Not Detected U Marijuana (THC) Screen Not Detected Assessment and Plan (1) HTN (hypertension): Status: Acute (2) Pre-operative cardiovascular examination: Status: Acute Plan This is a 66 yo M who is admitted to the [facility] unit. Med consult for mgmt of HTN + pre-op clearance for ECT. 1. Pre-operative evaluation for ECT pt with prior history of TBI and subdural hematoma -- no clinical evidence of acute intracranial issues. EKG unchanged from prior. Furthermore he has undergone multiple ECTs, without any documented adverse events to my knowledge. (As recently has last month). His risk is unchanged from last admission and at this time, he needs no further work up prior to ECT. 2. HTN, uncontrolled on lisinopril 40mg daily, norsvac 10mg daily; will add low dose hctz 12.5mg daily
[2021-12-11] MEDS: LORazepam 0.5 MG TABLET PO (13:35)
[2021-12-11] MEDS: QUEtiapine Fumarate 25 MG TABLET PO (15:08)
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
[2021-12-11] MEDS: Vortioxetine Hydrobromide 10 MG TABLET PO (16:03)
[2021-12-11] MEDS: polyethylene glycoL 3350 17 GM POWD.PACK PO (16:03)
[2021-12-11 21:00] VITALS: BP 119/55; PULSE 72; RESP 18; TEMP 36.6; O2SAT 94
[2021-12-11] MEDS: Latanoprost 0.005 % Ophth Sol 2.5 ML DROPS 1 DROP EYE-BOTH (21:32)
[2021-12-11] MEDS: traZODone HCL 50 MG TABLET 150 MG PO (21:32)
[2021-12-11] MEDS: Albuterol Sulfate 90 MCG 8 GM INHALER 2 PUFF INHALE (21:32)
[2021-12-11] MEDS: Melatonin 3 MG TABLET 6 MG PO (21:33)
[2021-12-11] MEDS: LORazepam 1 MG TABLET PO (21:33)
[2021-12-11] MEDS: Nortriptyline HCl 10 MG CAPSULE 30 MG PO (21:33)
[2021-12-11] MEDS: QUEtiapine Fumarate 50 MG TABLET PO (21:34)
[2021-12-12 06:00] VITALS: BP 116/78; PULSE 80; RESP 16; TEMP 36.7; O2SAT 98
--- NOTE | 2021-12-12 07:29 | PC.NURSE ---
Early in shift, pt. requested to speak to RN. Pt. reported he has a lady friend he began dating in 1987. Pt. reported they got back together in August 2021. Pt. stated that he is in love with her. Pt. reported that prior to admission he met with her and told her there is not much more I can take pain estevez. I should just end this thing and the torture. Pt. reported he was referring to his life when he said he should just end this thing. Pt. reported this made his girlfriend cry. He felt guilty and extra sad because she was crying. She told the pt. to go to the hospital and he believes she called EMS. He reported EMS came with two police officers. Pt. stated, they gave me time to pack. Pt. then relayed his experience in the main ED. He reported feeling upset because he was told by the ED staff that he was being admitted to the unit at 1900 and did not end up being admitted until 2119. Pt. reported he was frustrated by meeting with team and change to Dr. Alexander. Pt. stated, there will be a meeting in the morning to discuss my medications. Pt. acknowledged that he does not follow discharge plan. He became tearful and stated that he feels worthless. Pt. denied SI here. He stated, There's no way to do it here. Pt. contracts for safety.
[2021-12-12 09:59] VITALS: BMI 29.5
[2021-12-12] MEDS: Finasteride 5 MG TABLET PO (10:20)
[2021-12-12] MEDS: Milk of Magnesia 30 ML ORAL.SUSP PO (10:20)
[2021-12-12] MEDS: Cholecalciferol (Vitamin D3) 10 MCG TABLET 20 MCG PO (10:20)
[2021-12-12] MEDS: Pramipexole Di-HCL 0.125 MG TABLET PO ×3 (10:21→20:26)
[2021-12-12] MEDS: Multivitamin TABLET 1 TAB PO (10:21)
[2021-12-12] MEDS: lisinopriL 40 MG TABLET PO (10:21)
[2021-12-12] MEDS: lamoTRIgine 100 MG TABLET 200 MG PO ×2 (10:21→20:27)
[2021-12-12] MEDS: Gabapentin 400 MG CAPSULE PO ×3 (10:21→20:26)
[2021-12-12] MEDS: hydroCHLOROthiazide 12.5 MG TABLET PO (10:21)
[2021-12-12] MEDS: amLODIPine Besylate 10 MG TABLET PO (10:21)
--- NOTE | 2021-12-12 15:28 | P.PNPSI_ITS ---
Subjective Subjective Date of Service: 12/12/21 Reason For Visit: SI Subjective Notes: Conditional Voluntary Interim History: The nursing staff reported that the patient has been mostly in the common area watching TV. He has been compliant with treatment. On interview with Dr. Haskins we explained that he needs to have psychotherapy and be compliant with outpatient services. We discussed also his alcohol abuse and at this moment he does not want to be treated for that. Mental Status Exam Mental Status Exam Patient Appearance: Well Grooomed (Wheelchair-bound) Patient Orientation: Person, Place and Situation Level of Consciousness: Awake and Appropriate Patient Behavior: Guarded and Cooperative Mood Description: Depressed Affect Description: Constricted Patient Cognition Impaired: No Ability to Follow Directions: Good Speech Pattern: Clear Memory Description: Intact Hallucinations: None Delusions: Not Present Thought Process: Linear Thought Content: positive for Circumstantial Depressive Symptoms: Increased Irritability Judgement: Fair Diagnostics Vital Signs (24Hr): Vital Signs - 24 hr 12/11/21 21:00 Temperature 97.8 F Pulse Rate 72 Respiratory Rate 18 Blood Pressure 119/55 L Pulse Oximetry 94 BMI result Verdana 4 Body Mass Index Verdana 4 29.5 Verdana 4 Verdana 4 Labs Results: 12/09/21 19:15 12/09/21 19:15 Labs: Laboratory Results - last 48 hr 12/10/21 19:14 Urine Opiates Screen Not Detected Urine Fentanyl Screen Not Detected Ur Barbiturates Screen Not Detected Ur Phencyclidine Scrn Not Detected Ur Amphetamines Screen Not Detected U Benzodiazepines Scrn Not Detected Urine Cocaine Screen Not Detected U Marijuana (THC) Screen Not Detected Medications Medications Current Medications Acetaminophen (Acetaminophen 325 Mg Tablet) 650 mg PO Q6H PRN PRN Reason: Pain (Scale Score 1-3) Acetaminophen (Acetaminophen 325 Mg Tablet) 650 mg PO Q6H PRN PRN Reason: Headache/Pain Mild Scale (1-3) Al Hydroxide/Mg Hydroxide (Magnesium Hydrox/Alum Hydrox 30 Ml Oral.Susp) 30 ml PO Q6H PRN PRN Reason: Heartburn/Nausea Albuterol Sulfate (Albuterol Sulfate 90 Mcg 8 Gm Inhaler) 2 puff INHALE Q6H PRN PRN Reason: Shortness Of Breath Last Admin: 12/11/21 21:32 Dose: 2 puff Documented by: Amlodipine Besylate (Amlodipine Besylate 10 Mg Tablet) 10 mg PO DAILY [facility]; Protocol Last Admin: 12/12/21 10:21 Dose: 10 mg Documented by: Artificial Tears (Artificial Tears 15 Ml Drops) 1 drop EYE-BOTH Q1H PRN PRN Reason: Dry Eye(S) Finasteride (Finasteride 5 Mg Tablet) 5 mg PO DAILY [facility] Last Admin: 12/12/21 10:20 Dose: 5 mg Documented by: Gabapentin (Gabapentin 400 Mg Capsule) 400 mg PO TID [facility] Last Admin: 12/12/21 10:21 Dose: 400 mg Documented by: Hydrochlorothiazide (Hydrochlorothiazide 12.5 Mg Tablet) 12.5 mg PO DAILY [facility]; Protocol Last Admin: 12/12/21 10:21 Dose: 12.5 mg Documented by: Hydroxyzine HCl (Hydroxyzine Hcl 25 Mg Tablet) 25 mg PO BEDTIME PRN PRN Reason: Anxiety Ibuprofen (Ibuprofen 400 Mg Tablet) 400 mg PO Q6H PRN PRN Reason: Pain, Moderate (Pain Scale 4-6 Last Admin: 12/11/21 21:34 Dose: 400 mg Documented by: Lamotrigine (Lamotrigine 100 Mg Tablet) 200 mg PO BID [facility] Last Admin: 12/12/21 10:21 Dose: 200 mg Documented by: Latanoprost (Latanoprost 0.005 % Ophth No 2.5 Ml Drops) 1 drop EYE-BOTH BEDTIME [facility] Last Admin: 12/11/21 21:32 Dose: 1 drop Documented by: Lidocaine (Lidocaine 4 % Patch Adh..Patch) 1 patch TRANSDERMA DAILY [facility]; Protocol Last Admin: 12/12/21 10:32 Dose: Not Given Documented by: Lisinopril (Lisinopril 40 Mg Tablet) 40 mg PO DAILY [facility]; Protocol Last Admin: 12/12/21 10:21 Dose: 40 mg Documented by: Lorazepam (Lorazepam 0.5 Mg Tablet) 0.5 mg PO QID PRN PRN Reason: Anxiety Last Admin: 12/11/21 13:35 Dose: 0.5 mg Documented by: Lorazepam (Lorazepam 1 Mg Tablet) 1 mg PO BEDTIME [facility] Last Admin: 12/11/21 21:33 Dose: 1 mg Documented by: Magnesium Hydroxide (Milk Of Magnesia 30 Ml Oral.Susp) 30 ml PO Q72H PRN PRN Reason: Constipation Last Admin: 12/12/21 10:20 Dose: 30 ml Documented by: Magnesium Hydroxide (Milk Of Magnesia 30 Ml Oral.Susp) 30 ml PO DAILY PRN PRN Reason: Constipation Melatonin (Melatonin 3 Mg Tablet) 6 mg PO BEDTIME [facility] Last Admin: 12/11/21 21:33 Dose: 6 mg Documented by: Multivitamins/Vitamin C (Multivitamin Tablet) 1 tab PO DAILY [facility] Last Admin: 12/12/21 10:21 Dose: 1 tab Documented by: Nortriptyline HCl (Nortriptyline Hcl 10 Mg Capsule) 30 mg PO BEDTIME [facility] Last Admin: 12/11/21 21:33 Dose: 30 mg Documented by: Polyethylene Glycol (Polyethylene Glycol 3350 17 Gm Powd.Pack) 17 gm PO DAILY PRN PRN Reason: Constipation Polyethylene Glycol (Polyethylene Glycol 3350 17 Gm Powd.Pack) 17 gm PO GRAYSON Y@1600 [facility] Last Admin: 12/11/21 16:03 Dose: 17 gm Documented by: Pramipexole Dihydrochloride (Pramipexole Di-Hcl 0.125 Mg Tablet) 0.125 mg PO TID [facility] Last Admin: 12/12/21 10:21 Dose: 0.125 mg Documented by: Psyllium Hydrophilic Mucilloid (Psyllium Seed 3.4 Gm Powd.Pack) 3.4 gm PO DAILY [facility] Last Admin: 12/12/21 10:27 Dose: 3.4 gm Documented by: Quetiapine Fumarate (Quetiapine Fumarate 25 Mg Tablet) 25 mg PO BID PRN PRN Reason: Anxiety Last Admin: 12/11/21 15:08 Dose: 25 mg Documented by: Quetiapine Fumarate (Quetiapine Fumarate 50 Mg Tablet) 50 mg PO BEDTIME [facility] Last Admin: 12/11/21 21:34 Dose: 50 mg Documented by: Trazodone HCl (Trazodone Hcl 50 Mg Tablet) 150 mg PO BEDTIME [facility] Last Admin: 12/11/21 21:32 Dose: 150 mg Documented by: Trazodone HCl (Trazodone Hcl 50 Mg Tablet) 50 mg PO BEDTIME PRN PRN Reason: Insomnia Vitamin D (Cholecalciferol (Vitamin D3) 10 Mcg Tablet) 20 mcg PO DAILY [facility] Last Admin: 12/12/21 10:20 Dose: 20 mcg Documented by: Vortioxetine (Vortioxetine Hydrobromide 10 Mg Tablet) 10 mg PO DAILY@1700 [facility] Last Admin: 12/11/21 16:03 Dose: 10 mg Documented by: Allergies Allergies Allergy/AdvReac Type Severity Reaction Status Date / Time fentanyl [FENTANYL] Allergy Intermediate unknown Verified 05/22/21 11:43 Assessment & Plan Assessment & Plan (1) Major depressive disorder, recurrent severe without psychotic features: Status: Acute Code(s): F33.2 - Major depressive disorder, recurrent severe without psychotic features (2) Cognitive and neurobehavioral dysfunction following brain injury: Status: Acute Code(s): G31.89 - Other specified degenerative diseases of nervous system; F09 - Unspecified mental disorder due to known physiological condition; S06.9X9S - Unspecified intracranial injury with loss of consciousness of unspecified duration, sequela (3) HTN (hypertension): Status: Acute Code(s): I10 - Essential (primary) hypertension Plan Middle-aged male with a long history of mood symptoms with several admissions into the hospital for suicidal ideation. He also carries a diagnosis of TBI, historically he used to be highly functional but at this moment his wheelchair bounded and very angry at times. Plan 1. Continue same medications. 2. Nortriptyline level 3. Gather collateral information I spent minutes with the patient and/or on the patient floor today, greater than?50% of which was spent counseling/coordinating care. Reason for contiued inpatient stay Substantial Risk for: harm to self, inability to function, rapid decompensation and med/psych decompensation
[2021-12-12] MEDS: polyethylene glycoL 3350 17 GM POWD.PACK PO (16:13)
[2021-12-12] MEDS: Vortioxetine Hydrobromide 10 MG TABLET PO (18:48)
[2021-12-12 19:11] VITALS: BP 134/66; PULSE 75; RESP 18; TEMP 36.4; O2SAT 98
[2021-12-12] MEDS: Latanoprost 0.005 % Ophth Sol 2.5 ML DROPS 1 DROP EYE-BOTH (20:25)
[2021-12-12] MEDS: Acetaminophen 325 MG TABLET 650 MG PO (20:26)
[2021-12-12] MEDS: traZODone HCL 50 MG TABLET 150 MG PO (20:27)
[2021-12-12] MEDS: QUEtiapine Fumarate 50 MG TABLET PO (20:27)
[2021-12-12] MEDS: Nortriptyline HCl 10 MG CAPSULE 30 MG PO (20:27)
[2021-12-12] MEDS: Melatonin 3 MG TABLET 6 MG PO (20:28)
[2021-12-12] MEDS: LORazepam 1 MG TABLET PO (20:28)
[2021-12-13 06:00] VITALS: BP 126/63; PULSE 85; RESP 17; TEMP 36.4; O2SAT 98
[2021-12-13] MEDS: lamoTRIgine 100 MG TABLET 200 MG PO ×2 (09:55→20:56)
[2021-12-13] MEDS: Pramipexole Di-HCL 0.125 MG TABLET PO ×3 (09:55→20:59)
[2021-12-13] MEDS: lisinopriL 40 MG TABLET PO (09:55)
[2021-12-13] MEDS: Finasteride 5 MG TABLET PO (09:55)
[2021-12-13] MEDS: Cholecalciferol (Vitamin D3) 10 MCG TABLET 20 MCG PO (09:55)
[2021-12-13] MEDS: Multivitamin TABLET 1 TAB PO (09:56)
[2021-12-13] MEDS: amLODIPine Besylate 10 MG TABLET PO (09:56)
[2021-12-13] MEDS: Gabapentin 400 MG CAPSULE PO ×3 (09:56→20:59)
[2021-12-13] MEDS: hydroCHLOROthiazide 12.5 MG TABLET PO (09:56)
[2021-12-13] MEDS: Ibuprofen 400 MG TABLET PO ×2 (09:58→20:59)
[2021-12-13] MEDS: LORazepam 0.5 MG TABLET PO ×2 (09:58→18:07)
[2021-12-13 18:00] VITALS: BP 131/70; PULSE 76; RESP 18; TEMP 36.9; O2SAT 97
[2021-12-13] MEDS: Vortioxetine Hydrobromide 10 MG TABLET PO (18:07)
--- NOTE | 2021-12-13 18:24 | P.PNPSI_ITS ---
Subjective Subjective Date of Service: 12/13/21 Reason For Visit: SI Subjective Notes: Conditional Voluntary Interim History: The nursing staff reported the patient has limited participation in groups, his sometimes disrespectful with some staff. He usually gels on the evening asking for help and he is attention seeking. He disclosed to the manager social services that he wants to kill himself if he continues feeling so bad. On interview, the patient was angry with his previous prescriber since he stated that he is not an alcoholic. He reported that he has abuse in the past with alcohol and in the past probably he could have abused of that but he states that he is not an alcoholic and he drinks alcohol sporadically. He does not believe that he has a problem and he is not willing to stop Mental Status Exam Mental Status Exam Patient Appearance: Well Grooomed Patient Orientation: Person, Place and Situation Level of Consciousness: Awake Patient Behavior: Cooperative Mood Description: Depressed Affect Description: Constricted Patient Cognition Impaired: No Ability to Follow Directions: Good Speech Pattern: Appropriate Memory Description: Intact Hallucinations: None Delusions: Not Present Thought Process: Linear Thought Content: positive for Circumstantial Judgement: Fair Diagnostics Vital Signs (24Hr): Vital Signs - 24 hr 12/12/21 19:11 Temperature 97.6 F Pulse Rate 75 Respiratory Rate 18 Blood Pressure 134/66 Pulse Oximetry 98 BMI result Verdana 4 Body Mass Index Verdana 4 29.5 Verdana 4 Verdana 4 Labs Results: 12/09/21 19:15 12/09/21 19:15 Medications Medications Current Medications Acetaminophen (Acetaminophen 325 Mg Tablet) 650 mg PO Q6H PRN PRN Reason: Pain (Scale Score 1-3) Last Admin: 12/12/21 20:26 Dose: 650 mg Documented by: Acetaminophen (Acetaminophen 325 Mg Tablet) 650 mg PO Q6H PRN PRN Reason: Headache/Pain Mild Scale (1-3) Al Hydroxide/Mg Hydroxide (Magnesium Hydrox/Alum Hydrox 30 Ml Oral.Susp) 30 ml PO Q6H PRN PRN Reason: Heartburn/Nausea Albuterol Sulfate (Albuterol Sulfate 90 Mcg 8 Gm Inhaler) 2 puff INHALE Q6H PRN PRN Reason: Shortness Of Breath Last Admin: 12/11/21 21:32 Dose: 2 puff Documented by: Amlodipine Besylate (Amlodipine Besylate 10 Mg Tablet) 10 mg PO DAILY [facility]; Protocol Last Admin: 12/13/21 09:56 Dose: 10 mg Documented by: Artificial Tears (Artificial Tears 15 Ml Drops) 1 drop EYE-BOTH Q1H PRN PRN Reason: Dry Eye(S) Finasteride (Finasteride 5 Mg Tablet) 5 mg PO DAILY [facility] Last Admin: 12/13/21 09:55 Dose: 5 mg Documented by: Gabapentin (Gabapentin 400 Mg Capsule) 400 mg PO TID [facility] Last Admin: 12/13/21 16:26 Dose: 400 mg Documented by: Hydrochlorothiazide (Hydrochlorothiazide 12.5 Mg Tablet) 12.5 mg PO DAILY [facility]; Protocol Last Admin: 12/13/21 09:56 Dose: 12.5 mg Documented by: Hydroxyzine HCl (Hydroxyzine Hcl 25 Mg Tablet) 25 mg PO BEDTIME PRN PRN Reason: Anxiety Ibuprofen (Ibuprofen 400 Mg Tablet) 400 mg PO Q6H PRN PRN Reason: Pain, Moderate (Pain Scale 4-6 Last Admin: 12/13/21 09:58 Dose: 400 mg Documented by: Lamotrigine (Lamotrigine 100 Mg Tablet) 200 mg PO BID [facility] Last Admin: 12/13/21 09:55 Dose: 200 mg Documented by: Latanoprost (Latanoprost 0.005 % Ophth No 2.5 Ml Drops) 1 drop EYE-BOTH BEDTIME [facility] Last Admin: 12/12/21 20:25 Dose: 1 drop Documented by: Lidocaine (Lidocaine 4 % Patch Adh..Patch) 1 patch TRANSDERMA DAILY [facility]; Protocol Last Admin: 12/13/21 10:06 Dose: Not Given Documented by: Lisinopril (Lisinopril 40 Mg Tablet) 40 mg PO DAILY [facility]; Protocol Last Admin: 12/13/21 09:55 Dose: 40 mg Documented by: Lorazepam (Lorazepam 0.5 Mg Tablet) 0.5 mg PO QID PRN PRN Reason: Anxiety Last Admin: 12/13/21 18:07 Dose: 0.5 mg Documented by: Lorazepam (Lorazepam 1 Mg Tablet) 1 mg PO BEDTIME [facility] Last Admin: 12/12/21 20:28 Dose: 1 mg Documented by: Magnesium Hydroxide (Milk Of Magnesia 30 Ml Oral.Susp) 30 ml PO Q72H PRN PRN Reason: Constipation Last Admin: 12/12/21 10:20 Dose: 30 ml Documented by: Magnesium Hydroxide (Milk Of Magnesia 30 Ml Oral.Susp) 30 ml PO DAILY PRN PRN Reason: Constipation Melatonin (Melatonin 3 Mg Tablet) 6 mg PO BEDTIME [facility] Last Admin: 12/12/21 20:28 Dose: 6 mg Documented by: Multivitamins/Vitamin C (Multivitamin Tablet) 1 tab PO DAILY [facility] Last Admin: 12/13/21 09:56 Dose: 1 tab Documented by: Nortriptyline HCl (Nortriptyline Hcl 10 Mg Capsule) 30 mg PO BEDTIME [facility] Last Admin: 12/12/21 20:27 Dose: 30 mg Documented by: Polyethylene Glycol (Polyethylene Glycol 3350 17 Gm Powd.Pack) 17 gm PO DAILY PRN PRN Reason: Constipation Polyethylene Glycol (Polyethylene Glycol 3350 17 Gm Powd.Pack) 17 gm PO DAILY@1600 [facility] Last Admin: 12/13/21 18:07 Dose: Not Given Documented by: Pramipexole Dihydrochloride (Pramipexole Di-Hcl 0.125 Mg Tablet) 0.125 mg PO TID [facility] Last Admin: 12/13/21 16:25 Dose: 0.125 mg Documented by: Psyllium Hydrophilic Mucilloid (Psyllium Seed 3.4 Gm Powd.Pack) 3.4 gm PO DAILY [facility] Last Admin: 12/13/21 09:56 Dose: 3.4 gm Documented by: Quetiapine Fumarate (Quetiapine Fumarate 25 Mg Tablet) 25 mg PO BID PRN PRN Reason: Anxiety Last Admin: 12/11/21 15:08 Dose: 25 mg Documented by: Quetiapine Fumarate (Quetiapine Fumarate 50 Mg Tablet) 50 mg PO BEDTIME [facility] Last Admin: 12/12/21 20:27 Dose: 50 mg Documented by: Trazodone HCl (Trazodone Hcl 50 Mg Tablet) 150 mg PO BEDTIME [facility] Last Admin: 12/12/21 20:27 Dose: 150 mg Documented by: Trazodone HCl (Trazodone Hcl 50 Mg Tablet) 50 mg PO BEDTIME PRN PRN Reason: Insomnia Vitamin D (Cholecalciferol (Vitamin D3) 10 Mcg Tablet) 20 mcg PO DAILY [facility] Last Admin: 12/13/21 09:55 Dose: 20 mcg Documented by: Vortioxetine (Vortioxetine Hydrobromide 10 Mg Tablet) 10 mg PO DAILY@1700 [facility] Last Admin: 12/13/21 18:07 Dose: 10 mg Documented by: Allergies Allergies Allergy/AdvReac Type Severity Reaction Status Date / Time fentanyl [FENTANYL] Allergy Intermediate unknown Verified 05/22/21 11:43 Assessment & Plan Assessment & Plan (1) Major depressive disorder, recurrent severe without psychotic features: Status: Acute Code(s): F33.2 - Major depressive disorder, recurrent severe without psychotic features (2) Cognitive and neurobehavioral dysfunction following brain injury: Status: Acute Code(s): G31.89 - Other specified degenerative diseases of nervous system; F09 - Unspecified mental disorder due to known physiological condition; S06.9X9S - Unspecified intracranial injury with loss of consciousness of unspecified duration, sequela (3) HTN (hypertension): Status: Acute Code(s): I10 - Essential (primary) hypertension Plan Middle-aged male with a long history of mood symptoms with several admissions into the hospital for suicidal ideation. He also carries a diagnosis of TBI, historically he used to be highly functional but at this moment his wheelchair bounded and very angry at times. Plan 1. Continue same medications. 2. Nortriptyline level 3. Gather collateral information I spent minutes with the patient and/or on the patient floor today, greater than?50% of which was spent counseling/coordinating care. Reason for contiued inpatient stay Substantial Risk for: harm to self, inability to function, rapid decompensation and med/psych decompensation
[2021-12-13] MEDS: polyethylene glycoL 3350 17 GM POWD.PACK PO (20:04)
[2021-12-13] MEDS: Melatonin 3 MG TABLET 6 MG PO (20:55)
[2021-12-13] MEDS: Nortriptyline HCl 10 MG CAPSULE 30 MG PO (20:57)
[2021-12-13] MEDS: QUEtiapine Fumarate 50 MG TABLET PO (20:58)
[2021-12-13] MEDS: traZODone HCL 50 MG TABLET 150 MG PO (20:59)
[2021-12-13] MEDS: LORazepam 1 MG TABLET PO (21:00)
[2021-12-13] MEDS: Latanoprost 0.005 % Ophth Sol 2.5 ML DROPS 1 DROP EYE-BOTH (21:00)
[2021-12-14 06:25] VITALS: BP 127/58; PULSE 63; RESP 18; TEMP 36.6; O2SAT 96
[2021-12-14] MEDS: amLODIPine Besylate 10 MG TABLET PO (08:35)
[2021-12-14] MEDS: Finasteride 5 MG TABLET PO (08:35)
[2021-12-14] MEDS: Multivitamin TABLET 1 TAB PO (08:35)
[2021-12-14] MEDS: lamoTRIgine 100 MG TABLET 200 MG PO ×2 (08:36→21:12)
[2021-12-14] MEDS: Gabapentin 400 MG CAPSULE PO ×3 (08:36→21:11)
[2021-12-14] MEDS: lisinopriL 40 MG TABLET PO (08:36)
[2021-12-14] MEDS: Cholecalciferol (Vitamin D3) 10 MCG TABLET 20 MCG PO (08:36)
[2021-12-14] MEDS: Pramipexole Di-HCL 0.125 MG TABLET PO ×3 (08:36→21:11)
[2021-12-14] MEDS: Lidocaine 4 % Patch ADH..PATCH 1 PATCH TRANSDERMA (08:37)
[2021-12-14] MEDS: hydroCHLOROthiazide 12.5 MG TABLET PO (08:37)
--- NOTE | 2021-12-14 11:07 | HO.PSYCHPN ---
Subjective Subjective Date of Service: 12/14/21 Reason For Visit: SI Subjective Notes: Conditional Voluntary Interim History: The nursing staff reported no changes on his mental status, still dysphoric. On interview, he reported dysphoria but able con contract for safety. Mental Status Exam Mental Status Exam Patient Appearance: Well Grooomed Patient Orientation: Person Level of Consciousness: Awake Patient Behavior: Cooperative Mood Description: Calm Affect Description: Constricted Patient Cognition Impaired: Yes Ability to Follow Directions: Good Speech Pattern: Clear Memory Description: Intact Hallucinations: None Delusions: Not Present Thought Process: Linear Thought Content: positive for Circumstantial Depressive Symptoms: Increased Anxiety, Muscle Tension, Increased Irritability and Crying Spells Judgement: Fair Diagnostics Vital Signs (24Hr): Vital Signs - 24 hr 12/13/21 18:00 12/14/21 06:25 Temperature 98.5 F 97.8 F Pulse Rate 76 63 Respiratory Rate 18 18 Blood Pressure 131/70 127/58 L Pulse Oximetry 97 96 BMI result Body Mass Index 29.5 Labs Results: 12/09/21 19:15 12/09/21 19:15 Medications Medications Current Medications Acetaminophen (Acetaminophen 325 Mg Tablet) 650 mg PO Q6H PRN PRN Reason: Pain (Scale Score 1-3) Last Admin: 12/12/21 20:26 Dose: 650 mg Documented by: Acetaminophen (Acetaminophen 325 Mg Tablet) 650 mg PO Q6H PRN PRN Reason: Headache/Pain Mild Scale (1-3) Al Hydroxide/Mg Hydroxide (Magnesium Hydrox/Alum Hydrox 30 Ml Oral.Susp) 30 ml PO Q6H PRN PRN Reason: Heartburn/Nausea Albuterol Sulfate (Albuterol Sulfate 90 Mcg 8 Gm Inhaler) 2 puff INHALE Q6H PRN PRN Reason: Shortness Of Breath Last Admin: 12/11/21 21:32 Dose: 2 puff Documented by: Amlodipine Besylate (Amlodipine Besylate 10 Mg Tablet) 10 mg PO DAILY [facility]; Protocol Last Admin: 12/14/21 08:35 Dose: 10 mg Documented by: Artificial Tears (Artificial Tears 15 Ml Drops) 1 drop EYE-BOTH Q1H PRN PRN Reason: Dry Eye(S) Finasteride (Finasteride 5 Mg Tablet) 5 mg PO DAILY [facility] Last Admin: 12/14/21 08:35 Dose: 5 mg Documented by: Gabapentin (Gabapentin 400 Mg Capsule) 400 mg PO TID [facility] Last Admin: 12/14/21 08:36 Dose: 400 mg Documented by: Hydrochlorothiazide (Hydrochlorothiazide 12.5 Mg Tablet) 12.5 mg PO DAILY [facility]; Protocol Last Admin: 12/14/21 08:37 Dose: 12.5 mg Documented by: Hydroxyzine HCl (Hydroxyzine Hcl 25 Mg Tablet) 25 mg PO BEDTIME PRN PRN Reason: Anxiety Ibuprofen (Ibuprofen 400 Mg Tablet) 400 mg PO Q6H PRN PRN Reason: Pain, Moderate (Pain Scale 4-6 Last Admin: 12/13/21 20:59 Dose: 400 mg Documented by: Lamotrigine (Lamotrigine 100 Mg Tablet) 200 mg PO BID [facility] Last Admin: 12/14/21 08:36 Dose: 200 mg Documented by: Latanoprost (Latanoprost 0.005 % Ophth No 2.5 Ml Drops) 1 drop EYE-BOTH BEDTIME [facility] Last Admin: 12/13/21 21:00 Dose: 1 drop Documented by: Lidocaine (Lidocaine 4 % Patch Adh..Patch) 1 patch TRANSDERMA DAILY [facility]; Protocol Last Admin: 12/14/21 08:37 Dose: 1 patch Documented by: Lisinopril (Lisinopril 40 Mg Tablet) 40 mg PO DAILY [facility]; Protocol Last Admin: 12/14/21 08:36 Dose: 40 mg Documented by: Lorazepam (Lorazepam 0.5 Mg Tablet) 0.5 mg PO QID PRN PRN Reason: Anxiety Last Admin: 12/13/21 18:07 Dose: 0.5 mg Documented by: Lorazepam (Lorazepam 1 Mg Tablet) 1 mg PO BEDTIME [facility] Last Admin: 12/13/21 21:00 Dose: 1 mg Documented by: Magnesium Hydroxide (Milk Of Magnesia 30 Ml Oral.Susp) 30 ml PO Q72H PRN PRN Reason: Constipation Last Admin: 12/12/21 10:20 Dose: 30 ml Documented by: Magnesium Hydroxide (Milk Of Magnesia 30 Ml Oral.Susp) 30 ml PO DAILY PRN PRN Reason: Constipation Melatonin (Melatonin 3 Mg Tablet) 6 mg PO BEDTIME [facility] Last Admin: 12/13/21 20:55 Dose: 6 mg Documented by: Multivitamins/Vitamin C (Multivitamin Tablet) 1 tab PO DAILY [facility] Last Admin: 12/14/21 08:35 Dose: 1 tab Documented by: Nortriptyline HCl (Nortriptyline Hcl 10 Mg Capsule) 30 mg PO BEDTIME [facility] Last Admin: 12/13/21 20:57 Dose: 30 mg Documented by: Polyethylene Glycol (Polyethylene Glycol 3350 17 Gm Powd.Pack) 17 gm PO DAILY PRN PRN Reason: Constipation Polyethylene Glycol (Polyethylene Glycol 3350 17 Gm Powd.Pack) 17 gm PO DAILY@1600 [facility] Last Admin: 12/13/21 20:04 Dose: 17 gm Documented by: Pramipexole Dihydrochloride (Pramipexole Di-Hcl 0.125 Mg Tablet) 0.125 mg PO TID [facility] Last Admin: 12/14/21 08:36 Dose: 0.125 mg Documented by: Psyllium Hydrophilic Mucilloid (Psyllium Seed 3.4 Gm Powd.Pack) 3.4 gm PO DAILY [facility] Last Admin: 12/14/21 08:37 Dose: 3.4 gm Documented by: Quetiapine Fumarate (Quetiapine Fumarate 25 Mg Tablet) 25 mg PO BID PRN PRN Reason: Anxiety Last Admin: 12/11/21 15:08 Dose: 25 mg Documented by: Quetiapine Fumarate (Quetiapine Fumarate 50 Mg Tablet) 50 mg PO BEDTIME [facility] Last Admin: 12/13/21 20:58 Dose: 50 mg Documented by: Trazodone HCl (Trazodone Hcl 50 Mg Tablet) 150 mg PO BEDTIME [facility] Last Admin: 12/13/21 20:59 Dose: 150 mg Documented by: Trazodone HCl (Trazodone Hcl 50 Mg Tablet) 50 mg PO BEDTIME PRN PRN Reason: Insomnia Vitamin D (Cholecalciferol (Vitamin D3) 10 Mcg Tablet) 20 mcg PO DAILY [facility] Last Admin: 12/14/21 08:36 Dose: 20 mcg Documented by: Vortioxetine (Vortioxetine Hydrobromide 10 Mg Tablet) 10 mg PO DAILY@1700 [facility] Last Admin: 12/13/21 18:07 Dose: 10 mg Documented by: Allergies Allergies Allergy/AdvReac Type Severity Reaction Status Date / Time fentanyl [FENTANYL] Allergy Intermediate unknown Verified 05/22/21 11:43 Assessment & Plan Assessment & Plan (1) Major depressive disorder, recurrent severe without psychotic features: Status: Acute Code(s): F33.2 - Major depressive disorder, recurrent severe without psychotic features (2) Cognitive and neurobehavioral dysfunction following brain injury: Status: Acute Code(s): G31.89 - Other specified degenerative diseases of nervous system; F09 - Unspecified mental disorder due to known physiological condition; S06.9X9S - Unspecified intracranial injury with loss of consciousness of unspecified duration, sequela (3) HTN (hypertension): Status: Acute Code(s): I10 - Essential (primary) hypertension Plan Middle-aged male with a long history of mood symptoms with several admissions into the hospital for suicidal ideation. He also carries a diagnosis of TBI, historically he used to be highly functional but at this moment his wheelchair bounded and very angry at times. Plan 1. Continue same medications. 2. Nortriptyline level 3. Gather collateral information I spent minutes with the patient and/or on the patient floor today, greater than?50% of which was spent counseling/coordinating care. Reason for contiued inpatient stay Substantial Risk for: inability to function, rapid decompensation and med/psych decompensation
[2021-12-14] MEDS: Acetaminophen 325 MG TABLET 650 MG PO (15:37)
[2021-12-14] MEDS: LORazepam 0.5 MG TABLET PO (15:38)
[2021-12-14] MEDS: Vortioxetine Hydrobromide 10 MG TABLET PO (15:38)
[2021-12-14 18:00] VITALS: BP 125/73; PULSE 79; RESP 16; TEMP 36.6; O2SAT 95
[2021-12-14] MEDS: polyethylene glycoL 3350 17 GM POWD.PACK PO (19:25)
[2021-12-14] MEDS: LORazepam 1 MG TABLET PO (21:11)
[2021-12-14] MEDS: Nortriptyline HCl 10 MG CAPSULE 30 MG PO (21:11)
[2021-12-14] MEDS: Melatonin 3 MG TABLET 6 MG PO (21:11)
[2021-12-14] MEDS: QUEtiapine Fumarate 50 MG TABLET PO (21:11)
[2021-12-14] MEDS: traZODone HCL 50 MG TABLET 150 MG PO (21:12)
[2021-12-14] MEDS: Latanoprost 0.005 % Ophth Sol 2.5 ML DROPS 1 DROP EYE-BOTH (21:12)
[2021-12-15 06:00] VITALS: BP 92/70; PULSE 79; TEMP 36.7; O2SAT 98
[2021-12-15] MEDS: Multivitamin TABLET 1 TAB PO (08:50)
[2021-12-15] MEDS: Ibuprofen 400 MG TABLET PO ×2 (08:50→20:49)
[2021-12-15] MEDS: Finasteride 5 MG TABLET PO (08:50)
[2021-12-15] MEDS: lamoTRIgine 100 MG TABLET 200 MG PO ×2 (08:50→20:49)
[2021-12-15] MEDS: amLODIPine Besylate 10 MG TABLET PO (08:50)
[2021-12-15] MEDS: hydroCHLOROthiazide 12.5 MG TABLET PO (08:50)
[2021-12-15] MEDS: Cholecalciferol (Vitamin D3) 10 MCG TABLET 20 MCG PO (08:50)
[2021-12-15] MEDS: Gabapentin 400 MG CAPSULE PO ×3 (08:50→20:48)
[2021-12-15] MEDS: Pramipexole Di-HCL 0.125 MG TABLET PO ×3 (08:50→20:48)
[2021-12-15] MEDS: lisinopriL 40 MG TABLET PO (08:50)
--- NOTE | 2021-12-15 09:15 | P.PNPSI_ITS ---
Subjective Subjective Date of Service: 12/15/21 Reason For Visit: SI Subjective Notes: Conditional Voluntary Interim History: The nursing staff reported that he has been demanding at times. At night, he asked for PRN Ativan at night but his order , when the RN came back 10 minutes later, the patient was profoundly sleeping. On interview, no changes on his mental status. Mental Status Exam Mental Status Exam Patient Appearance: Well Grooomed Patient Orientation: Person Level of Consciousness: Awake Patient Behavior: Cooperative Mood Description: Depressed Affect Description: Constricted Ability to Follow Directions: Good Speech Pattern: Appropriate Hallucinations: None Delusions: Not Present Thought Process: Linear Thought Content: positive for Circumstantial Judgement: Fair Diagnostics Vital Signs (24Hr): Vital Signs - 24 hr 12/14/21 18:00 Temperature 98 F Pulse Rate 79 Respiratory Rate 16 Blood Pressure 125/73 Pulse Oximetry 95 BMI result Verdana 4 Body Mass Index Verdana 4 29.5 Verdana 4 Verdana 4 Labs Results: 12/09/21 19:15 12/09/21 19:15 Medications Medications Current Medications Acetaminophen (Acetaminophen 325 Mg Tablet) 650 mg PO Q6H PRN PRN Reason: Pain (Scale Score 1-3) Last Admin: 12/14/21 15:37 Dose: 650 mg Documented by: Acetaminophen (Acetaminophen 325 Mg Tablet) 650 mg PO Q6H PRN PRN Reason: Headache/Pain Mild Scale (1-3) Al Hydroxide/Mg Hydroxide (Magnesium Hydrox/Alum Hydrox 30 Ml Oral.Susp) 30 ml PO Q6H PRN PRN Reason: Heartburn/Nausea Albuterol Sulfate (Albuterol Sulfate 90 Mcg 8 Gm Inhaler) 2 puff INHALE Q6H PRN PRN Reason: Shortness Of Breath Last Admin: 12/11/21 21:32 Dose: 2 puff Documented by: Amlodipine Besylate (Amlodipine Besylate 10 Mg Tablet) 10 mg PO DAILY [facility]; Protocol Last Admin: 12/15/21 08:50 Dose: 10 mg Documented by: Artificial Tears (Artificial Tears 15 Ml Drops) 1 drop EYE-BOTH Q1H PRN PRN Reason: Dry Eye(S) Finasteride (Finasteride 5 Mg Tablet) 5 mg PO DAILY [facility] Last Admin: 12/15/21 08:50 Dose: 5 mg Documented by: Gabapentin (Gabapentin 400 Mg Capsule) 400 mg PO TID [facility] Last Admin: 12/15/21 08:50 Dose: 400 mg Documented by: Hydrochlorothiazide (Hydrochlorothiazide 12.5 Mg Tablet) 12.5 mg PO DAILY [facility]; Protocol Last Admin: 12/15/21 08:50 Dose: 12.5 mg Documented by: Hydroxyzine HCl (Hydroxyzine Hcl 25 Mg Tablet) 25 mg PO BEDTIME PRN PRN Reason: Anxiety Ibuprofen (Ibuprofen 400 Mg Tablet) 400 mg PO Q6H PRN PRN Reason: Pain, Moderate (Pain Scale 4-6 Last Admin: 12/15/21 08:50 Dose: 400 mg Documented by: Lamotrigine (Lamotrigine 100 Mg Tablet) 200 mg PO BID [facility] Last Admin: 12/15/21 08:50 Dose: 200 mg Documented by: Latanoprost (Latanoprost 0.005 % Ophth No 2.5 Ml Drops) 1 drop EYE-BOTH BEDTIME [facility] Last Admin: 12/14/21 21:12 Dose: 1 drop Documented by: Lidocaine (Lidocaine 4 % Patch Adh..Patch) 1 patch TRANSDERMA DAILY [facility]; Protocol Last Admin: 12/14/21 08:37 Dose: 1 patch Documented by: Lisinopril (Lisinopril 40 Mg Tablet) 40 mg PO DAILY [facility]; Protocol Last Admin: 12/15/21 08:50 Dose: 40 mg Documented by: Magnesium Hydroxide (Milk Of Magnesia 30 Ml Oral.Susp) 30 ml PO Q72H PRN PRN Reason: Constipation Last Admin: 12/12/21 10:20 Dose: 30 ml Documented by: Magnesium Hydroxide (Milk Of Magnesia 30 Ml Oral.Susp) 30 ml PO DAILY PRN PRN Reason: Constipation Melatonin (Melatonin 3 Mg Tablet) 6 mg PO BEDTIME [facility] Last Admin: 12/14/21 21:11 Dose: 6 mg Documented by: Multivitamins/Vitamin C (Multivitamin Tablet) 1 tab PO DAILY [facility] Last Admin: 12/15/21 08:50 Dose: 1 tab Documented by: Nortriptyline HCl (Nortriptyline Hcl 10 Mg Capsule) 30 mg PO BEDTIME [facility] Last Admin: 12/14/21 21:11 Dose: 30 mg Documented by: Polyethylene Glycol (Polyethylene Glycol 3350 17 Gm Powd.Pack) 17 gm PO DAILY PRN PRN Reason: Constipation Polyethylene Glycol (Polyethylene Glycol 3350 17 Gm Powd.Pack) 17 gm PO DAILY@1600 [facility] Last Admin: 12/14/21 19:25 Dose: 17 gm Documented by: Pramipexole Dihydrochloride (Pramipexole Di-Hcl 0.125 Mg Tablet) 0.125 mg PO TID [facility] Last Admin: 12/15/21 08:50 Dose: 0.125 mg Documented by: Psyllium Hydrophilic Mucilloid (Psyllium Seed 3.4 Gm Powd.Pack) 3.4 gm PO DAILY [facility] Last Admin: 12/15/21 08:50 Dose: 3.4 gm Documented by: Quetiapine Fumarate (Quetiapine Fumarate 25 Mg Tablet) 25 mg PO BID PRN PRN Reason: Anxiety Last Admin: 12/11/21 15:08 Dose: 25 mg Documented by: Quetiapine Fumarate (Quetiapine Fumarate 50 Mg Tablet) 50 mg PO BEDTIME [facility] Last Admin: 12/14/21 21:11 Dose: 50 mg Documented by: Trazodone HCl (Trazodone Hcl 50 Mg Tablet) 150 mg PO BEDTIME [facility] Last Admin: 12/14/21 21:12 Dose: 150 mg Documented by: Trazodone HCl (Trazodone Hcl 50 Mg Tablet) 50 mg PO BEDTIME PRN PRN Reason: Insomnia Vitamin D (Cholecalciferol (Vitamin D3) 10 Mcg Tablet) 20 mcg PO DAILY [facility] Last Admin: 12/15/21 08:50 Dose: 20 mcg Documented by: Vortioxetine (Vortioxetine Hydrobromide 10 Mg Tablet) 10 mg PO DAILY@1700 [facility] Last Admin: 12/14/21 15:38 Dose: 10 mg Documented by: Allergies Allergies Allergy/AdvReac Type Severity Reaction Status Date / Time fentanyl [FENTANYL] Allergy Intermediate unknown Verified 05/22/21 11:43 Assessment & Plan Assessment & Plan (1) Major depressive disorder, recurrent severe without psychotic features: Status: Acute Code(s): F33.2 - Major depressive disorder, recurrent severe without psychotic features (2) Cognitive and neurobehavioral dysfunction following brain injury: Status: Acute Code(s): G31.89 - Other specified degenerative diseases of nervous system; F09 - Unspecified mental disorder due to known physiological condition; S06.9X9S - Unspecified intracranial injury with loss of consciousness of unspecified duration, sequela (3) HTN (hypertension): Status: Acute Code(s): I10 - Essential (primary) hypertension Plan Middle-aged male with a long history of mood symptoms with several admissions into the hospital for suicidal ideation. He also carries a diagnosis of TBI, historically he used to be highly functional but at this moment his wheelchair bounded and very angry at times. Plan 1. Continue same medications. 2. Nortriptyline level 3. Gather collateral information I spent minutes with the patient and/or on the patient floor today, greater than?50% of which was spent counseling/coordinating care. Reason for contiued inpatient stay Substantial Risk for: harm to self, inability to function, rapid decompensation and med/psych decompensation
[2021-12-15 17:25] LABS: COVID-19 Test Negative (Negative); IDNOW Serial# 9DD0AD1C
[2021-12-15] MEDS: Vortioxetine Hydrobromide 10 MG TABLET PO (18:03)
[2021-12-15] MEDS: polyethylene glycoL 3350 17 GM POWD.PACK PO (18:04)
--- NOTE | 2021-12-15 18:49 | PC.NURSE ---
Pt reported in late afternoon that the bed is spinning and my stomach doesn't feel good . COVID test done, it came back negative. Pt reported feeling better a little while after. Currently eating dinner in the common area.
[2021-12-15 20:45] VITALS: BP 133/73; PULSE 78; RESP 19; TEMP 36.6; O2SAT 94
[2021-12-15] MEDS: Latanoprost 0.005 % Ophth Sol 2.5 ML DROPS 1 DROP EYE-BOTH (20:46)
[2021-12-15] MEDS: Albuterol Sulfate 90 MCG 8 GM INHALER 2 PUFF INHALE (20:46)
[2021-12-15] MEDS: traZODone HCL 50 MG TABLET 150 MG PO (20:47)
[2021-12-15] MEDS: Nortriptyline HCl 10 MG CAPSULE 30 MG PO (20:48)
[2021-12-15] MEDS: Magnesium Hydrox/Alum Hydrox 30 ML ORAL.SUSP PO (20:48)
[2021-12-15] MEDS: QUEtiapine Fumarate 50 MG TABLET PO (20:49)
[2021-12-15] MEDS: Melatonin 3 MG TABLET 6 MG PO (20:49)
[2021-12-15] MEDS: LORazepam 1 MG TABLET PO (20:49)
[2021-12-16 06:00] VITALS: BP 146/79; PULSE 84; RESP 17; TEMP 36.3; O2SAT 96
[2021-12-16] MEDS: Finasteride 5 MG TABLET PO (08:49)
[2021-12-16] MEDS: Cholecalciferol (Vitamin D3) 10 MCG TABLET 20 MCG PO (08:50)
[2021-12-16] MEDS: amLODIPine Besylate 10 MG TABLET PO (08:50)
[2021-12-16] MEDS: hydroCHLOROthiazide 12.5 MG TABLET PO (08:50)
[2021-12-16] MEDS: Pramipexole Di-HCL 0.125 MG TABLET PO ×3 (08:50→22:08)
[2021-12-16] MEDS: lisinopriL 40 MG TABLET PO (08:50)
[2021-12-16] MEDS: lamoTRIgine 100 MG TABLET 200 MG PO ×2 (08:50→22:07)
[2021-12-16] MEDS: Multivitamin TABLET 1 TAB PO (08:50)
[2021-12-16] MEDS: Gabapentin 400 MG CAPSULE PO ×3 (08:50→22:08)
[2021-12-16] MEDS: Magnesium Hydrox/Alum Hydrox 30 ML ORAL.SUSP PO (14:54)
--- NOTE | 2021-12-16 15:02 | P.PNPSI_ITS ---
Subjective Subjective Date of Service: 12/16/21 Reason For Visit: SI Subjective Notes: Conditional Voluntary Interim History: The nursing staff reported that yesterday the patient was not feeling well after lunch he was agitated and he has is low-grade fever. His COVID 19-. On interview the patient reports that he is more tearful and DC at times. He also complains of pain near his rectum area. Mental Status Exam Mental Status Exam Patient Appearance: Well Grooomed Patient Orientation: Person Level of Consciousness: Awake Patient Behavior: Cooperative and Suspicious Mood Description: Depressed Affect Description: Constricted Patient Cognition Impaired: No Ability to Follow Directions: Good Speech Pattern: Clear Hallucinations: None Delusions: Not Present Thought Process: Distracted Thought Content: positive for Circumstantial Judgement: Fair Diagnostics Vital Signs (24Hr): Vital Signs - 24 hr 12/15/21 20:45 12/16/21 06:00 Temperature 97.8 F 97.4 F Pulse Rate 78 84 Respiratory Rate 19 17 Blood Pressure 133/73 146/79 H Pulse Oximetry 94 96 BMI result Verdana 4 Body Mass Index Verdana 4 29.5 Verdana 4 Verdana 4 Labs Results: 12/09/21 19:15 12/09/21 19:15 Labs: Laboratory Results - last 48 hr 12/15/21 17:00 COVID-19 (RACHEL) Negative COVID-19 Clin Com See Note Medications Medications Current Medications Acetaminophen (Acetaminophen 325 Mg Tablet) 650 mg PO Q6H PRN PRN Reason: Pain (Scale Score 1-3) Last Admin: 12/14/21 15:37 Dose: 650 mg Documented by: Acetaminophen (Acetaminophen 325 Mg Tablet) 650 mg PO Q6H PRN PRN Reason: Headache/Pain Mild Scale (1-3) Al Hydroxide/Mg Hydroxide (Magnesium Hydrox/Alum Hydrox 30 Ml Oral.Susp) 30 ml PO Q6H PRN PRN Reason: Heartburn/Nausea Last Admin: 12/16/21 14:54 Dose: 30 ml Documented by: Albuterol Sulfate (Albuterol Sulfate 90 Mcg 8 Gm Inhaler) 2 puff INHALE Q6H PRN PRN Reason: Shortness Of Breath Last Admin: 12/15/21 20:46 Dose: 2 puff Documented by: Amlodipine Besylate (Amlodipine Besylate 10 Mg Tablet) 10 mg PO DAILY [facility]; Protocol Last Admin: 12/16/21 08:50 Dose: 10 mg Documented by: Artificial Tears (Artificial Tears 15 Ml Drops) 1 drop EYE-BOTH Q1H PRN PRN Reason: Dry Eye(S) Finasteride (Finasteride 5 Mg Tablet) 5 mg PO DAILY [facility] Last Admin: 12/16/21 08:49 Dose: 5 mg Documented by: Gabapentin (Gabapentin 400 Mg Capsule) 400 mg PO TID [facility] Last Admin: 12/16/21 14:54 Dose: 400 mg Documented by: Hydrochlorothiazide (Hydrochlorothiazide 12.5 Mg Tablet) 12.5 mg PO DAILY [facility]; Protocol Last Admin: 12/16/21 08:50 Dose: 12.5 mg Documented by: Hydroxyzine HCl (Hydroxyzine Hcl 25 Mg Tablet) 25 mg PO BEDTIME PRN PRN Reason: Anxiety Ibuprofen (Ibuprofen 400 Mg Tablet) 400 mg PO Q6H PRN PRN Reason: Pain, Moderate (Pain Scale 4-6 Last Admin: 12/15/21 20:49 Dose: 400 mg Documented by: Lamotrigine (Lamotrigine 100 Mg Tablet) 200 mg PO BID [facility] Last Admin: 12/16/21 08:50 Dose: 200 mg Documented by: Latanoprost (Latanoprost 0.005 % Ophth No 2.5 Ml Drops) 1 drop EYE-BOTH BEDTIME [facility] Last Admin: 12/15/21 20:46 Dose: 1 drop Documented by: Lidocaine (Lidocaine 4 % Patch Adh..Patch) 1 patch TRANSDERMA DAILY [facility]; Protocol Last Admin: 12/16/21 08:50 Dose: Not Given Documented by: Lisinopril (Lisinopril 40 Mg Tablet) 40 mg PO DAILY [facility]; Protocol Last Admin: 12/16/21 08:50 Dose: 40 mg Documented by: Lorazepam (Lorazepam 1 Mg Tablet) 1 mg PO BEDTIME [facility] Last Admin: 12/15/21 20:49 Dose: 1 mg Documented by: Lorazepam (Lorazepam 0.5 Mg Tablet) 0.5 mg PO Q6H PRN PRN Reason: Anxiety Magnesium Hydroxide (Milk Of Magnesia 30 Ml Oral.Susp) 30 ml PO Q72H PRN PRN Reason: Constipation Last Admin: 12/12/21 10:20 Dose: 30 ml Documented by: Magnesium Hydroxide (Milk Of Magnesia 30 Ml Oral.Susp) 30 ml PO DAILY PRN PRN Reason: Constipation Melatonin (Melatonin 3 Mg Tablet) 6 mg PO BEDTIME [facility] Last Admin: 12/15/21 20:49 Dose: 6 mg Documented by: Multivitamins/Vitamin C (Multivitamin Tablet) 1 tab PO DAILY [facility] Last Admin: 12/16/21 08:50 Dose: 1 tab Documented by: Nortriptyline HCl (Nortriptyline Hcl 10 Mg Capsule) 30 mg PO BEDTIME [facility] Last Admin: 12/15/21 20:48 Dose: 30 mg Documented by: Polyethylene Glycol (Polyethylene Glycol 3350 17 Gm Powd.Pack) 17 gm PO DAILY PRN PRN Reason: Constipation Polyethylene Glycol (Polyethylene Glycol 3350 17 Gm Powd.Pack) 17 gm PO DAILY@ 1600 [facility] Last Admin: 12/15/21 18:04 Dose: 17 gm Documented by: Pramipexole Dihydrochloride (Pramipexole Di-Hcl 0.125 Mg Tablet) 0.125 mg PO TID [facility] Last Admin: 12/16/21 14:54 Dose: 0.125 mg Documented by: Psyllium Hydrophilic Mucilloid (Psyllium Seed 3.4 Gm Powd.Pack) 3.4 gm PO DAILY [facility] Last Admin: 12/16/21 08:49 Dose: 3.4 gm Documented by: Quetiapine Fumarate (Quetiapine Fumarate 25 Mg Tablet) 25 mg PO BID PRN PRN Reason: Anxiety Last Admin: 12/11/21 15:08 Dose: 25 mg Documented by: Quetiapine Fumarate (Quetiapine Fumarate 50 Mg Tablet) 50 mg PO BEDTIME [facility] Last Admin: 12/15/21 20:49 Dose: 50 mg Documented by: Trazodone HCl (Trazodone Hcl 50 Mg Tablet) 150 mg PO BEDTIME [facility] Last Admin: 12/15/21 20:47 Dose: 150 mg Documented by: Trazodone HCl (Trazodone Hcl 50 Mg Tablet) 50 mg PO BEDTIME PRN PRN Reason: Insomnia Vitamin D (Cholecalciferol (Vitamin D3) 10 Mcg Tablet) 20 mcg PO DAILY [facility] Last Admin: 12/16/21 08:50 Dose: 20 mcg Documented by: Vortioxetine (Vortioxetine Hydrobromide 10 Mg Tablet) 10 mg PO DAILY@1700 [facility] Last Admin: 12/15/21 18:03 Dose: 10 mg Documented by: Allergies Allergies Allergy/AdvReac Type Severity Reaction Status Date / Time fentanyl [FENTANYL] Allergy Intermediate unknown Verified 05/22/21 11:43 Assessment & Plan Assessment & Plan (1) Major depressive disorder, recurrent severe without psychotic features: Status: Acute Code(s): F33.2 - Major depressive disorder, recurrent severe without psychotic features (2) Cognitive and neurobehavioral dysfunction following brain injury: Status: Acute Code(s): G31.89 - Other specified degenerative diseases of nervous system; F09 - Unspecified mental disorder due to known physiological condition; S06.9X9S - Unspecified intracranial injury with loss of consciousness of unspecified duration, sequela (3) HTN (hypertension): Status: Acute Code(s): I10 - Essential (primary) hypertension Plan Middle-aged male with a long history of mood symptoms with several admissions into the hospital for suicidal ideation. He also carries a diagnosis of TBI, historically he used to be highly functional but at this moment his wheelchair bounded and very angry at times. Plan 1. Continue same medications. 2. Nortriptyline level 3. Gather collateral information I spent minutes with the patient and/or on the patient floor today, greater than?50% of which was spent counseling/coordinating care. Reason for contiued inpatient stay Substantial Risk for: harm to self, inability to function, rapid decompensation and med/psych decompensation
[2021-12-16 22:00] VITALS: BP 141/76; PULSE 75; RESP 20; TEMP 36.8; O2SAT 97
[2021-12-16] MEDS: Hydrocortisone 1 % Cream 28.35 GM TUBE 1 APPL TOPICAL (22:05)
[2021-12-16] MEDS: Latanoprost 0.005 % Ophth Sol 2.5 ML DROPS 1 DROP EYE-BOTH (22:05)
[2021-12-16] MEDS: Melatonin 3 MG TABLET 6 MG PO (22:05)
[2021-12-16] MEDS: QUEtiapine Fumarate 50 MG TABLET PO (22:06)
[2021-12-16] MEDS: Ibuprofen 400 MG TABLET PO (22:06)
[2021-12-16] MEDS: LORazepam 1 MG TABLET PO (22:08)
[2021-12-16] MEDS: traZODone HCL 50 MG TABLET 150 MG PO (22:08)
[2021-12-16] MEDS: Nortriptyline HCl 25 MG CAPSULE 50 MG PO (22:08)
[2021-12-16] MEDS: Albuterol Sulfate 90 MCG 8 GM INHALER 2 PUFF INHALE (22:21)
[2021-12-17] MEDS: LORazepam 0.5 MG TABLET PO (04:07)
[2021-12-17] MEDS: Ibuprofen 400 MG TABLET PO ×2 (04:08→13:47)
[2021-12-17 07:45] VITALS: BP 141/79; PULSE 82; TEMP 36.6; O2SAT 97
[2021-12-17] MEDS: amLODIPine Besylate 10 MG TABLET PO (08:15)
[2021-12-17] MEDS: Finasteride 5 MG TABLET PO (08:16)
[2021-12-17] MEDS: lamoTRIgine 100 MG TABLET 200 MG PO ×2 (08:16→20:48)
[2021-12-17] MEDS: lisinopriL 40 MG TABLET PO (08:16)
[2021-12-17] MEDS: Cholecalciferol (Vitamin D3) 10 MCG TABLET 20 MCG PO (08:16)
[2021-12-17] MEDS: Multivitamin TABLET 1 TAB PO (08:16)
[2021-12-17] MEDS: Pramipexole Di-HCL 0.125 MG TABLET PO ×3 (08:16→20:50)
[2021-12-17] MEDS: hydroCHLOROthiazide 12.5 MG TABLET PO (08:16)
[2021-12-17] MEDS: Gabapentin 400 MG CAPSULE PO ×3 (08:17→20:50)
[2021-12-17 08:36] LABS: Nortriptyline 17 mcg/L (50-150)
--- NOTE | 2021-12-17 09:01 | PC.NURSE ---
Skin/wound assessment completed today. Patient has blanchable redness to buttocks and redness to bilateral groin. Barrier cream to be applied BID on buttocks and groin. No other skin issues noted at this time.
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
[2021-12-17] MEDS: Hydrocortisone 1 % Cream 28.35 GM TUBE 1 APPL TOPICAL ×2 (14:40→20:55)
[2021-12-17] MEDS: polyethylene glycoL 3350 17 GM POWD.PACK PO (17:21)
[2021-12-17 18:00] VITALS: BP 134/66; PULSE 77; RESP 20; TEMP 36.5; O2SAT 95
[2021-12-17] MEDS: Latanoprost 0.005 % Ophth Sol 2.5 ML DROPS 1 DROP EYE-BOTH (20:47)
[2021-12-17] MEDS: Melatonin 3 MG TABLET 6 MG PO (20:47)
[2021-12-17] MEDS: QUEtiapine Fumarate 50 MG TABLET PO (20:49)
[2021-12-17] MEDS: LORazepam 1 MG TABLET PO (20:49)
[2021-12-17] MEDS: traZODone HCL 50 MG TABLET 150 MG PO (20:51)
[2021-12-17] MEDS: Nortriptyline HCl 25 MG CAPSULE 50 MG PO (20:51)
[2021-12-18] MEDS: hydrOXYzine HCL 25 MG TABLET PO (03:17)
[2021-12-18 07:30] VITALS: BP 146/81; PULSE 82; RESP 16; TEMP 36.6; O2SAT 99
[2021-12-18] MEDS: Pramipexole Di-HCL 0.125 MG TABLET PO ×3 (08:23→21:48)
[2021-12-18] MEDS: Gabapentin 400 MG CAPSULE PO ×3 (08:23→21:48)
[2021-12-18] MEDS: hydroCHLOROthiazide 12.5 MG TABLET PO (08:23)
[2021-12-18] MEDS: Finasteride 5 MG TABLET PO (08:23)
[2021-12-18] MEDS: amLODIPine Besylate 10 MG TABLET PO (08:23)
[2021-12-18] MEDS: Cholecalciferol (Vitamin D3) 10 MCG TABLET 20 MCG PO (08:24)
[2021-12-18] MEDS: lisinopriL 40 MG TABLET PO (08:24)
[2021-12-18] MEDS: Multivitamin TABLET 1 TAB PO (08:24)
[2021-12-18] MEDS: lamoTRIgine 100 MG TABLET 200 MG PO ×2 (08:24→21:47)
--- NOTE | 2021-12-18 14:06 | P.PNPSI_ITS ---
Subjective Subjective Date of Service: 12/18/21 Reason For Visit: SI Subjective Notes: Conditional Voluntary Interim History: The nursing staff reported the patient has been visible in the common areas watching TV and attending to groups. He reported anxiety. On interview the patient reported the Trintellix is making him have more diarrhea and he requested to change it. We review his list of medications and he agreed to start increasing his nortriptyline up to a therapeutic dose, the target dose will be 100 mg p.o. q.h.s.. Mental Status Exam Mental Status Exam Patient Appearance: Well Grooomed Patient Orientation: Person and Situation Level of Consciousness: Awake Patient Behavior: Cooperative Mood Description: Depressed Affect Description: Constricted Patient Cognition Impaired: No Ability to Follow Directions: Good Speech Pattern: Clear Hallucinations: None Delusions: Not Present Thought Process: Linear Thought Content: positive for Circumstantial Judgement: Fair Diagnostics Vital Signs (24Hr): Vital Signs - 24 hr 12/17/21 18:00 12/18/21 07:30 Temperature 97.7 F 97.8 F Pulse Rate 77 82 Respiratory Rate 20 16 Blood Pressure 134/66 146/81 H Pulse Oximetry 95 99 BMI result Verdana 4 Body Mass Index Verdana 4 29.5 Verdana 4 Verdana 4 Labs Results: 12/09/21 19:15 12/09/21 19:15 Labs: Laboratory Results - last 48 hr 12/12/21 07:49 Nortriptyline 17 L Medications Medications Current Medications Acetaminophen (Acetaminophen 325 Mg Tablet) 650 mg PO Q6H PRN PRN Reason: Pain (Scale Score 1-3) Last Admin: 12/14/21 15:37 Dose: 650 mg Documented by: Acetaminophen (Acetaminophen 325 Mg Tablet) 650 mg PO Q6H PRN PRN Reason: Headache/Pain Mild Scale (1-3) Al Hydroxide/Mg Hydroxide (Magnesium Hydrox/Alum Hydrox 30 Ml Oral.Susp) 30 ml PO Q6H PRN PRN Reason: Heartburn/Nausea Last Admin: 12/16/21 14:54 Dose: 30 ml Documented by: Albuterol Sulfate (Albuterol Sulfate 90 Mcg 8 Gm Inhaler) 2 puff INHALE Q6H PRN PRN Reason: Shortness Of Breath Last Admin: 12/16/21 22:21 Dose: 2 puff Documented by: Amlodipine Besylate (Amlodipine Besylate 10 Mg Tablet) 10 mg PO DAILY [facility]; Protocol Last Admin: 12/18/21 08:23 Dose: 10 mg Documented by: Artificial Tears (Artificial Tears 15 Ml Drops) 1 drop EYE-BOTH Q1H PRN PRN Reason: Dry Eye(S) Finasteride (Finasteride 5 Mg Tablet) 5 mg PO DAILY [facility] Last Admin: 12/18/21 08:23 Dose: 5 mg Documented by: Gabapentin (Gabapentin 400 Mg Capsule) 400 mg PO TID [facility] Last Admin: 12/18/21 08:23 Dose: 400 mg Documented by: Hydrochlorothiazide (Hydrochlorothiazide 12.5 Mg Tablet) 12.5 mg PO DAILY [facility]; Protocol Last Admin: 12/18/21 08:23 Dose: 12.5 mg Documented by: Hydrocortisone (Hydrocortisone 1 % Cream 28.35 Gm Tube) 1 appl TOPICAL BID [facility]; Protocol Last Admin: 12/18/21 13:22 Dose: Not Given Documented by: Hydroxyzine HCl (Hydroxyzine Hcl 25 Mg Tablet) 25 mg PO BEDTIME PRN PRN Reason: Anxiety Last Admin: 12/18/21 03:17 Dose: 25 mg Documented by: Ibuprofen (Ibuprofen 400 Mg Tablet) 400 mg PO Q6H PRN PRN Reason: Pain, Moderate (Pain Scale 4-6 Last Admin: 12/17/21 13:47 Dose: 400 mg Documented by: Lamotrigine (Lamotrigine 100 Mg Tablet) 200 mg PO BID [facility] Last Admin: 12/18/21 08:24 Dose: 200 mg Documented by: Latanoprost (Latanoprost 0.005 % Ophth No 2.5 Ml Drops) 1 drop EYE-BOTH BEDTIME [facility] Last Admin: 12/17/21 20:47 Dose: 1 drop Documented by: Lidocaine (Lidocaine 4 % Patch Adh..Patch) 1 patch TRANSDERMA DAILY [facility]; Protocol Last Admin: 12/18/21 13:21 Dose: Not Given Documented by: Lisinopril (Lisinopril 40 Mg Tablet) 40 mg PO DAILY [facility]; Protocol Last Admin: 12/18/21 08:24 Dose: 40 mg Documented by: Lorazepam (Lorazepam 1 Mg Tablet) 1 mg PO BEDTIME [facility] Last Admin: 12/17/21 20:49 Dose: 1 mg Documented by: Lorazepam (Lorazepam 0.5 Mg Tablet) 0.5 mg PO Q6H PRN PRN Reason: Anxiety Last Admin: 12/17/21 04:07 Dose: 0.5 mg Documented by: Magnesium Hydroxide (Milk Of Magnesia 30 Ml Oral.Susp) 30 ml PO Q72H PRN PRN Reason: Constipation Last Admin: 12/12/21 10:20 Dose: 30 ml Documented by: Magnesium Hydroxide (Milk Of Magnesia 30 Ml Oral.Susp) 30 ml PO DAILY PRN PRN Reason: Constipation Melatonin (Melatonin 3 Mg Tablet) 6 mg PO BEDTIME [facility] Last Admin: 12/17/21 20:47 Dose: 6 mg Documented by: Multivitamins/Vitamin C (Multivitamin Tablet) 1 tab PO DAILY [facility] Last Admin: 12/18/21 08:24 Dose: 1 tab Documented by: Nortriptyline HCl (Nortriptyline Hcl 25 Mg Capsule) 50 mg PO BEDTIME [facility] Last Admin: 12/17/21 20:51 Dose: 50 mg Documented by: Polyethylene Glycol (Polyethylene Glycol 3350 17 Gm Powd.Pack) 17 gm PO DAILY PRN PRN Reason: Constipation Polyethylene Glycol (Polyethylene Glycol 3350 17 Gm Powd.Pack) 17 gm PO DAILY@1600 [facility] Last Admin: 12/17/21 17:21 Dose: 17 gm Documented by: Pramipexole Dihydrochloride (Pramipexole Di-Hcl 0.125 Mg Tablet) 0.125 mg PO TID [facility] Last Admin: 12/18/21 08:23 Dose: 0.125 mg Documented by: Psyllium Hydrophilic Mucilloid (Psyllium Seed 3.4 Gm Powd.Pack) 3.4 gm PO DAILY [facility] Last Admin: 12/18/21 08:24 Dose: 3.4 gm Documented by: Quetiapine Fumarate (Quetiapine Fumarate 25 Mg Tablet) 25 mg PO BID PRN PRN Reason: Anxiety Last Admin: 12/11/21 15:08 Dose: 25 mg Documented by: Quetiapine Fumarate (Quetiapine Fumarate 50 Mg Tablet) 50 mg PO BEDTIME [facility] Last Admin: 12/17/21 20:49 Dose: 50 mg Documented by: Trazodone HCl (Trazodone Hcl 50 Mg Tablet) 50 mg PO BEDTIME PRN PRN Reason: Insomnia Trazodone HCl (Trazodone Hcl 100 Mg Tablet) 200 mg PO BEDTIME [facility] Vitamin D (Cholecalciferol (Vitamin D3) 10 Mcg Tablet) 20 mcg PO DAILY [facility] Last Admin: 12/18/21 08:24 Dose: 20 mcg Documented by: Vortioxetine (Vortioxetine Hydrobromide 10 Mg Tablet) 10 mg PO DAILY@1700 [facility] Last Admin: 12/17/21 17:17 Dose: Not Given Documented by: Allergies Allergies Allergy/AdvReac Type Severity Reaction Status Date / Time fentanyl [FENTANYL] Allergy Intermediate unknown Verified 05/22/21 11:43 Assessment & Plan Assessment & Plan (1) Major depressive disorder, recurrent severe without psychotic features: Status: Acute Code(s): F33.2 - Major depressive disorder, recurrent severe without psychotic features (2) Cognitive and neurobehavioral dysfunction following brain injury: Status: Acute Code(s): G31.89 - Other specified degenerative diseases of nervous system; F09 - Unspecified mental disorder due to known physiological condition; S06.9X9S - Unspecified intracranial injury with loss of consciousness of unspecified duration, sequela (3) HTN (hypertension): Status: Acute Code(s): I10 - Essential (primary) hypertension Plan Middle-aged male with a long history of mood symptoms with several admissions into the hospital for suicidal ideation. He also carries a diagnosis of TBI, historically he used to be highly functional but at this moment his wheelchair bounded and very angry at times. Plan 1. Continue same medications. 2. Nortriptyline level on a subtherapeutic level we will titrated accordingly 3. Gather collateral information. 4. Discontinue Trintellix I spent minutes with the patient and/or on the patient floor today, greater than?50% of which was spent counseling/coordinating care. Reason for contiued inpatient stay Substantial Risk for: harm to self, rapid decompensation and med/psych decompensation
[2021-12-18] MEDS: Ibuprofen 400 MG TABLET PO (15:43)
[2021-12-18 18:00] VITALS: BP 124/66; PULSE 83; RESP 18; TEMP 36.9; O2SAT 97
[2021-12-18] MEDS: traZODone HCL 100 MG TABLET 200 MG PO (21:48)
[2021-12-18] MEDS: QUEtiapine Fumarate 50 MG TABLET PO (21:49)
[2021-12-18] MEDS: LORazepam 1 MG TABLET PO (21:50)
[2021-12-19 06:00] VITALS: BP 127/73; PULSE 73; RESP 18; TEMP 36.5; O2SAT 96
[2021-12-19] MEDS: lamoTRIgine 100 MG TABLET 200 MG PO ×2 (08:55→21:08)
[2021-12-19] MEDS: Ibuprofen 400 MG TABLET PO ×2 (08:55→14:39)
[2021-12-19] MEDS: Multivitamin TABLET 1 TAB PO (08:56)
[2021-12-19] MEDS: lisinopriL 40 MG TABLET PO (08:56)
[2021-12-19] MEDS: amLODIPine Besylate 10 MG TABLET PO (08:56)
[2021-12-19] MEDS: Finasteride 5 MG TABLET PO (08:56)
[2021-12-19] MEDS: Pramipexole Di-HCL 0.125 MG TABLET PO ×3 (08:56→21:09)
[2021-12-19] MEDS: Cholecalciferol (Vitamin D3) 10 MCG TABLET 20 MCG PO (08:56)
[2021-12-19] MEDS: Gabapentin 400 MG CAPSULE PO ×3 (08:56→21:09)
[2021-12-19] MEDS: hydroCHLOROthiazide 12.5 MG TABLET PO (08:56)
[2021-12-19 14:26] VITALS: BMI 31.4
[2021-12-19] MEDS: polyethylene glycoL 3350 17 GM POWD.PACK PO (14:39)
--- NOTE | 2021-12-19 15:31 | HO.PSYCHPN ---
Subjective Subjective Date of Service: 12/19/21 Reason For Visit: SI Subjective Notes: Conditional Voluntary Interim History: The nursing staff reported that she attended to groups, he watched tv and he looks very dysphoric.Yesterday, we stopped Trintellix since he complained of diarrhea. At this moment he denies diarrhea. He was concerned about the increase of nortriptyline that could making and steady. We did a consult to Physical therapy to see the level of the condition. The patient stated that he does not want to go to a fpc or a subacute rehab since he will lose his independence. We discussed at length the possibility of alcohol impacting his mood and he was in a pre-contemplative state he adamantly denied that alcohol is a problem at all for him. Mental Status Exam Mental Status Exam Patient Appearance: Well Grooomed Patient Orientation: Person Level of Consciousness: Awake Patient Behavior: Appropriate Mood Description: Calm Patient Cognition Impaired: No Ability to Follow Directions: Good Speech Pattern: Clear Hallucinations: None Delusions: Not Present Thought Process: Linear Thought Content: positive for Intact Judgement: Fair Diagnostics Vital Signs (24Hr): Vital Signs - 24 hr 12/18/21 18:00 12/19/21 06:00 Temperature 98.4 F 97.7 F Pulse Rate 83 73 Respiratory Rate 18 18 Blood Pressure 124/66 127/73 Pulse Oximetry 97 96 BMI result Body Mass Index 31.4 Labs Results: 12/09/21 19:15 12/09/21 19:15 Medications Medications Current Medications Acetaminophen (Acetaminophen 325 Mg Tablet) 650 mg PO Q6H PRN PRN Reason: Pain (Scale Score 1-3) Last Admin: 12/14/21 15:37 Dose: 650 mg Documented by: Acetaminophen (Acetaminophen 325 Mg Tablet) 650 mg PO Q6H PRN PRN Reason: Headache/Pain Mild Scale (1-3) Al Hydroxide/Mg Hydroxide (Magnesium Hydrox/Alum Hydrox 30 Ml Oral.Susp) 30 ml PO Q6H PRN PRN Reason: Heartburn/Nausea Last Admin: 12/16/21 14:54 Dose: 30 ml Documented by: Albuterol Sulfate (Albuterol Sulfate 90 Mcg 8 Gm Inhaler) 2 puff INHALE Q6H PRN PRN Reason: Shortness Of Breath Last Admin: 12/16/21 22:21 Dose: 2 puff Documented by: Amlodipine Besylate (Amlodipine Besylate 10 Mg Tablet) 10 mg PO DAILY [facility]; Protocol Last Admin: 12/19/21 08:56 Dose: 10 mg Documented by: Artificial Tears (Artificial Tears 15 Ml Drops) 1 drop EYE-BOTH Q1H PRN PRN Reason: Dry Eye(S) Finasteride (Finasteride 5 Mg Tablet) 5 mg PO DAILY [facility] Last Admin: 12/19/21 08:56 Dose: 5 mg Documented by: Gabapentin (Gabapentin 400 Mg Capsule) 400 mg PO TID [facility] Last Admin: 12/19/21 14:39 Dose: 400 mg Documented by: Hydrochlorothiazide (Hydrochlorothiazide 12.5 Mg Tablet) 12.5 mg PO DAILY [facility]; Protocol Last Admin: 12/19/21 08:56 Dose: 12.5 mg Documented by: Hydrocortisone (Hydrocortisone 1 % Cream 28.35 Gm Tube) 1 appl TOPICAL BID [facility]; Protocol Last Admin: 12/19/21 09:00 Dose: Not Given Documented by: Hydroxyzine HCl (Hydroxyzine Hcl 25 Mg Tablet) 25 mg PO BEDTIME PRN PRN Reason: Anxiety Last Admin: 12/18/21 03:17 Dose: 25 mg Documented by: Ibuprofen (Ibuprofen 400 Mg Tablet) 400 mg PO Q6H PRN PRN Reason: Pain, Moderate (Pain Scale 4-6 Last Admin: 12/19/21 14:39 Dose: 400 mg Documented by: Lamotrigine (Lamotrigine 100 Mg Tablet) 200 mg PO BID [facility] Last Admin: 12/19/21 08:55 Dose: 200 mg Documented by: Latanoprost (Latanoprost 0.005 % Ophth No 2.5 Ml Drops) 1 drop EYE-BOTH BEDTIME [facility] Last Admin: 12/18/21 22:35 Dose: Not Given Documented by: Lidocaine (Lidocaine 4 % Patch Adh..Patch) 1 patch TRANSDERMA DAILY [facility]; Protocol Last Admin: 12/19/21 08:59 Dose: Not Given Documented by: Lisinopril (Lisinopril 40 Mg Tablet) 40 mg PO DAILY [facility]; Protocol Last Admin: 12/19/21 08:56 Dose: 40 mg Documented by: Lorazepam (Lorazepam 1 Mg Tablet) 1 mg PO BEDTIME [facility] Last Admin: 12/18/21 21:50 Dose: 1 mg Documented by: Lorazepam (Lorazepam 0.5 Mg Tablet) 0.5 mg PO Q6H PRN PRN Reason: Anxiety Last Admin: 12/17/21 04:07 Dose: 0.5 mg Documented by: Magnesium Hydroxide (Milk Of Magnesia 30 Ml Oral.Susp) 30 ml PO Q72H PRN PRN Reason: Constipation Last Admin: 12/12/21 10:20 Dose: 30 ml Documented by: Magnesium Hydroxide (Milk Of Magnesia 30 Ml Oral.Susp) 30 ml PO DAILY PRN PRN Reason: Constipation Melatonin (Melatonin 3 Mg Tablet) 6 mg PO BEDTIME [facility] Last Admin: 12/18/21 21:49 Dose: 3 mg Documented by: Multivitamins/Vitamin C (Multivitamin Tablet) 1 tab PO DAILY [facility] Last Admin: 12/19/21 08:56 Dose: 1 tab Documented by: Nortriptyline HCl (Nortriptyline Hcl 25 Mg Capsule) 50 mg PO BEDTIME [facility] Last Admin: 12/18/21 21:49 Dose: 25 mg Documented by: Polyethylene Glycol (Polyethylene Glycol 3350 17 Gm Powd.Pack) 17 gm PO DAILY PRN PRN Reason: Constipation Polyethylene Glycol (Polyethylene Glycol 3350 17 Gm Powd.Pack) 17 gm PO DAILY@1600 [facility] Last Admin: 12/19/21 14:39 Dose: 17 gm Documented by: Pramipexole Dihydrochloride (Pramipexole Di-Hcl 0.125 Mg Tablet) 0.125 mg PO TID [facility] Last Admin: 12/19/21 14:39 Dose: 0.125 mg Documented by: Psyllium Hydrophilic Mucilloid (Psyllium Seed 3.4 Gm Powd.Pack) 3.4 gm PO DAILY [facility] Last Admin: 12/19/21 08:56 Dose: 3.4 gm Documented by: Quetiapine Fumarate (Quetiapine Fumarate 25 Mg Tablet) 25 mg PO BID PRN PRN Reason: Anxiety Last Admin: 12/11/21 15:08 Dose: 25 mg Documented by: Quetiapine Fumarate (Quetiapine Fumarate 50 Mg Tablet) 50 mg PO BEDTIME [facility] Last Admin: 12/18/21 21:49 Dose: 50 mg Documented by: Trazodone HCl (Trazodone Hcl 50 Mg Tablet) 50 mg PO BEDTIME PRN PRN Reason: Insomnia Trazodone HCl (Trazodone Hcl 100 Mg Tablet) 200 mg PO BEDTIME [facility] Last Admin: 12/18/21 21:48 Dose: 200 mg Documented by: Vitamin D (Cholecalciferol (Vitamin D3) 10 Mcg Tablet) 20 mcg PO DAILY [facility] Last Admin: 12/19/21 08:56 Dose: 20 mcg Documented by: Allergies Allergies Allergy/AdvReac Type Severity Reaction Status Date / Time fentanyl [FENTANYL] Allergy Intermediate unknown Verified 05/22/21 11:43 Assessment & Plan Assessment & Plan (1) Major depressive disorder, recurrent severe without psychotic features: Status: Acute Code(s): F33.2 - Major depressive disorder, recurrent severe without psychotic features (2) Cognitive and neurobehavioral dysfunction following brain injury: Status: Acute Code(s): G31.89 - Other specified degenerative diseases of nervous system; F09 - Unspecified mental disorder due to known physiological condition; S06.9X9S - Unspecified intracranial injury with loss of consciousness of unspecified duration, sequela (3) HTN (hypertension): Status: Acute Code(s): I10 - Essential (primary) hypertension Plan Middle-aged male with a long history of mood symptoms with several admissions into the hospital for suicidal ideation. He also carries a diagnosis of TBI, historically he used to be highly functional but at this moment his wheelchair bounded and very angry at times. Plan 1. Continue same medications. 2. Nortriptyline level on a subtherapeutic level we will titrated accordingly, we will check next Thursday on Pamelor 50 mg 3. Gather collateral information. 4. Discontinue Trintellix I spent minutes with the patient and/or on the patient floor today, greater than?50% of which was spent counseling/coordinating care. Reason for contiued inpatient stay Substantial Risk for: harm to self, inability to function, rapid decompensation and med/psych decompensation
[2021-12-19 20:06] VITALS: BP 105/56; PULSE 75; RESP 18; TEMP 36; O2SAT 96
[2021-12-19] MEDS: traZODone HCL 100 MG TABLET 200 MG PO (21:00)
[2021-12-19] MEDS: Nortriptyline HCl 25 MG CAPSULE 50 MG PO ×2 (21:09→21:34)
[2021-12-19] MEDS: QUEtiapine Fumarate 50 MG TABLET PO (21:09)
[2021-12-19] MEDS: Melatonin 3 MG TABLET 6 MG PO ×2 (21:09→21:33)
[2021-12-19] MEDS: LORazepam 1 MG TABLET PO (21:10)
[2021-12-19] MEDS: Latanoprost 0.005 % Ophth Sol 2.5 ML DROPS 1 DROP EYE-BOTH (21:10)
[2021-12-20 06:00] VITALS: BP 140/67; PULSE 72; RESP 16; TEMP 36.4; O2SAT 98
[2021-12-20] MEDS: Cholecalciferol (Vitamin D3) 10 MCG TABLET 20 MCG PO (07:59)
[2021-12-20] MEDS: lisinopriL 40 MG TABLET PO (07:59)
[2021-12-20] MEDS: lamoTRIgine 100 MG TABLET 200 MG PO ×2 (07:59→21:59)
[2021-12-20] MEDS: Pramipexole Di-HCL 0.125 MG TABLET PO ×3 (07:59→22:00)
[2021-12-20] MEDS: amLODIPine Besylate 10 MG TABLET PO (07:59)
[2021-12-20] MEDS: hydroCHLOROthiazide 12.5 MG TABLET PO (07:59)
[2021-12-20] MEDS: Multivitamin TABLET 1 TAB PO (07:59)
[2021-12-20] MEDS: Gabapentin 400 MG CAPSULE PO ×3 (08:00→21:58)
[2021-12-20] MEDS: Finasteride 5 MG TABLET PO (08:00)
[2021-12-20 14:20] VITALS: BP 140/67; PULSE 72; O2SAT 98
--- NOTE | 2021-12-20 16:14 | P.PNPSI_ITS ---
Subjective Subjective Date of Service: 12/20/21 Reason For Visit: SI Subjective Notes: Conditional Voluntary Interim History: The staff reported that the patient has been visible in the unit. Physical therapy assessed him and he is not a candidate for subacute rehab. The patient reported that he does not want to go to a f[facility]. Today in the morning, he woke up and prepare himself for breakfast without any help. On interview, the patient reported that he is still depressed we still waiting for lab results. The plan is to target nortriptyline up to 100 mg p.o. q.h.s. Mental Status Exam Mental Status Exam Patient Appearance: Well Grooomed Patient Orientation: Person and Situation Level of Consciousness: Awake Patient Behavior: Cooperative Mood Description: Depressed Affect Description: Constricted Patient Cognition Impaired: No Ability to Follow Directions: Good Speech Pattern: Clear Hallucinations: None Delusions: Not Present Thought Process: Linear Thought Content: positive for Circumstantial Judgement: Fair Diagnostics Vital Signs (24Hr): Vital Signs - 24 hr 12/19/21 20:06 12/20/21 06:00 12/20/21 14:20 Temperature 96.8 F 97.5 F Pulse Rate 75 72 72 Respiratory Rate 18 16 Blood Pressure 105/56 L 140/67 H 140/67 H Pulse Oximetry 96 98 98 BMI result Verdana 4 Body Mass Index Verdana 4 31.4 Verdana 4 Verdana 4 Labs Results: 12/09/21 19:15 12/09/21 19:15 Medications Medications Current Medications Acetaminophen (Acetaminophen 325 Mg Tablet) 650 mg PO Q6H PRN PRN Reason: Pain (Scale Score 1-3) Last Admin: 12/14/21 15:37 Dose: 650 mg Documented by: Acetaminophen (Acetaminophen 325 Mg Tablet) 650 mg PO Q6H PRN PRN Reason: Headache/Pain Mild Scale (1-3) Al Hydroxide/Mg Hydroxide (Magnesium Hydrox/Alum Hydrox 30 Ml Oral.Susp) 30 ml PO Q6H PRN PRN Reason: Heartburn/Nausea Last Admin: 12/16/21 14:54 Dose: 30 ml Documented by: Albuterol Sulfate (Albuterol Sulfate 90 Mcg 8 Gm Inhaler) 2 puff INHALE Q6H PRN PRN Reason: Shortness Of Breath Last Admin: 12/16/21 22:21 Dose: 2 puff Documented by: Amlodipine Besylate (Amlodipine Besylate 10 Mg Tablet) 10 mg PO DAILY [facility]; Protocol Last Admin: 12/20/21 07:59 Dose: 10 mg Documented by: Artificial Tears (Artificial Tears 15 Ml Drops) 1 drop EYE-BOTH Q1H PRN PRN Reason: Dry Eye(S) Finasteride (Finasteride 5 Mg Tablet) 5 mg PO DAILY [facility] Last Admin: 12/20/21 08:00 Dose: 5 mg Documented by: Gabapentin (Gabapentin 400 Mg Capsule) 400 mg PO TID [facility] Last Admin: 12/20/21 08:00 Dose: 400 mg Documented by: Hydrochlorothiazide (Hydrochlorothiazide 12.5 Mg Tablet) 12.5 mg PO DAILY [facility]; Protocol Last Admin: 12/20/21 07:59 Dose: 12.5 mg Documented by: Hydrocortisone (Hydrocortisone 1 % Cream 28.35 Gm Tube) 1 appl TOPICAL BID [facility]; Protocol Last Admin: 12/20/21 08:04 Dose: Not Given Documented by: Hydroxyzine HCl (Hydroxyzine Hcl 25 Mg Tablet) 25 mg PO BEDTIME PRN PRN Reason: Anxiety Last Admin: 12/18/21 03:17 Dose: 25 mg Documented by: Ibuprofen (Ibuprofen 400 Mg Tablet) 400 mg PO Q6H PRN PRN Reason: Pain, Moderate (Pain Scale 4-6 Last Admin: 12/19/21 14:39 Dose: 400 mg Documented by: Lamotrigine (Lamotrigine 100 Mg Tablet) 200 mg PO BID [facility] Last Admin: 12/20/21 07:59 Dose: 200 mg Documented by: Latanoprost (Latanoprost 0.005 % Ophth No 2.5 Ml Drops) 1 drop EYE-BOTH BEDTIME [facility] Last Admin: 12/19/21 21:10 Dose: 1 drop Documented by: Lidocaine (Lidocaine 4 % Patch Adh..Patch) 1 patch TRANSDERMA DAILY [facility]; Protocol Last Admin: 12/20/21 08:04 Dose: Not Given Documented by: Lisinopril (Lisinopril 40 Mg Tablet) 40 mg PO DAILY [facility]; Protocol Last Admin: 12/20/21 07:59 Dose: 40 mg Documented by: Lorazepam (Lorazepam 1 Mg Tablet) 1 mg PO BEDTIME [facility] Last Admin: 12/19/21 21:10 Dose: 1 mg Documented by: Magnesium Hydroxide (Milk Of Magnesia 30 Ml Oral.Susp) 30 ml PO Q72H PRN PRN Reason: Constipation Last Admin: 12/12/21 10:20 Dose: 30 ml Documented by: Magnesium Hydroxide (Milk Of Magnesia 30 Ml Oral.Susp) 30 ml PO DAILY PRN PRN Reason: Constipation Melatonin (Melatonin 3 Mg Tablet) 6 mg PO BEDTIME [facility] Last Admin: 12/19/21 21:33 Dose: 6 mg Documented by: Multivitamins/Vitamin C (Multivitamin Tablet) 1 tab PO DAILY [facility] Last Admin: 12/20/21 07:59 Dose: 1 tab Documented by: Nortriptyline HCl (Nortriptyline Hcl 25 Mg Capsule) 50 mg PO BEDTIME [facility] Last Admin: 12/19/21 21:34 Dose: 50 mg Documented by: Polyethylene Glycol (Polyethylene Glycol 3350 17 Gm Powd.Pack) 17 gm PO DAILY PRN PRN Reason: Constipation Polyethylene Glycol (Polyethylene Glycol 3350 17 Gm Powd.Pack) 17 gm PO DAILY@1600 [facility] Last Admin: 12/19/21 14:39 Dose: 17 gm Documented by: Pramipexole Dihydrochloride (Pramipexole Di-Hcl 0.125 Mg Tablet) 0.125 mg PO TID [facility] Last Admin: 12/20/21 07:59 Dose: 0.125 mg Documented by: Psyllium Hydrophilic Mucilloid (Psyllium Seed 3.4 Gm Powd.Pack) 3.4 gm PO DAILY [facility] Last Admin: 12/20/21 07:59 Dose: 3.4 gm Documented by: Quetiapine Fumarate (Quetiapine Fumarate 25 Mg Tablet) 25 mg PO BID PRN PRN Reason: Anxiety Last Admin: 12/11/21 15:08 Dose: 25 mg Documented by: Quetiapine Fumarate (Quetiapine Fumarate 50 Mg Tablet) 50 mg PO BEDTIME [facility] Last Admin: 12/19/21 21:09 Dose: 50 mg Documented by: Trazodone HCl (Trazodone Hcl 50 Mg Tablet) 50 mg PO BEDTIME PRN PRN Reason: Insomnia Trazodone HCl (Trazodone Hcl 100 Mg Tablet) 200 mg PO BEDTIME [facility] Last Admin: 12/19/21 21:00 Dose: 200 mg Documented by: Vitamin D (Cholecalciferol (Vitamin D3) 10 Mcg Tablet) 20 mcg PO DAILY [facility] Last Admin: 12/20/21 07:59 Dose: 20 mcg Documented by: Allergies Allergies Allergy/AdvReac Type Severity Reaction Status Date / Time fentanyl [FENTANYL] Allergy Intermediate unknown Verified 05/22/21 11:43 Assessment & Plan Assessment & Plan (1) Major depressive disorder, recurrent severe without psychotic features: Status: Acute Code(s): F33.2 - Major depressive disorder, recurrent severe without psychotic features (2) Cognitive and neurobehavioral dysfunction following brain injury: Status: Acute Code(s): G31.89 - Other specified degenerative diseases of nervous system; F09 - Unspecified mental disorder due to known physiological condition; S06.9X9S - Unspecified intracranial injury with loss of consciousness of unspecified duration, sequela (3) HTN (hypertension): Status: Acute Code(s): I10 - Essential (primary) hypertension Plan Middle-aged male with a long history of mood symptoms with several admissions into the hospital for suicidal ideation. He also carries a diagnosis of TBI, historically he used to be highly functional but at this moment his wheelchair bounded and very angry at times. Plan 1. Continue same medications. 2. Nortriptyline level on a subtherapeutic level we will titrated accordingly, we will check next Thursday on Pamelor 50 mg 3. Gather collateral information. 4. Discontinue Trintellix I spent minutes with the patient and/or on the patient floor today, greater than?50% of which was spent counseling/coordinating care. Reason for contiued inpatient stay Substantial Risk for: inability to function, rapid decompensation and med/psych decompensation
[2021-12-20] MEDS: polyethylene glycoL 3350 17 GM POWD.PACK PO (16:21)
[2021-12-20 18:00] VITALS: BP 130/73; PULSE 89; RESP 18; TEMP 36.6; O2SAT 96
[2021-12-20] MEDS: Ibuprofen 400 MG TABLET PO (18:26)
[2021-12-20] MEDS: Hydrocortisone 1 % Cream 28.35 GM TUBE 1 APPL TOPICAL (21:59)
[2021-12-20] MEDS: Latanoprost 0.005 % Ophth Sol 2.5 ML DROPS 1 DROP EYE-BOTH (21:59)
[2021-12-20] MEDS: QUEtiapine Fumarate 50 MG TABLET PO (22:00)
[2021-12-20] MEDS: Nortriptyline HCl 25 MG CAPSULE 50 MG PO (22:00)
[2021-12-20] MEDS: Melatonin 3 MG TABLET 6 MG PO (22:00)
[2021-12-20] MEDS: traZODone HCL 100 MG TABLET 200 MG PO (22:01)
[2021-12-21] MEDS: traZODone HCL 50 MG TABLET PO (01:14)
[2021-12-21 06:00] VITALS: BP 127/73; PULSE 73; RESP 18; TEMP 36.8; O2SAT 96
[2021-12-21] MEDS: hydroCHLOROthiazide 12.5 MG TABLET PO (09:24)
[2021-12-21] MEDS: Pramipexole Di-HCL 0.125 MG TABLET PO ×3 (09:24→22:15)
[2021-12-21] MEDS: Gabapentin 400 MG CAPSULE PO ×3 (09:24→22:14)
[2021-12-21] MEDS: Finasteride 5 MG TABLET PO (09:24)
[2021-12-21] MEDS: Cholecalciferol (Vitamin D3) 10 MCG TABLET 20 MCG PO (09:24)
[2021-12-21] MEDS: lisinopriL 40 MG TABLET PO (09:24)
[2021-12-21] MEDS: lamoTRIgine 100 MG TABLET 200 MG PO ×2 (09:25→22:14)
[2021-12-21] MEDS: amLODIPine Besylate 10 MG TABLET PO (09:25)
[2021-12-21] MEDS: Multivitamin TABLET 1 TAB PO (09:25)
[2021-12-21] MEDS: Ibuprofen 400 MG TABLET PO (09:30)
[2021-12-21] MEDS: QUEtiapine Fumarate 25 MG TABLET PO (12:23)
--- NOTE | 2021-12-21 17:19 | P.PNPSI_ITS ---
Subjective Subjective Date of Service: 12/21/21 Reason For Visit: SI Subjective Notes: Conditional Voluntary Interim History: 12/20:The staff reported that the patient has been visible in the unit. Physical therapy assessed him and he is not a candidate for subacute rehab. The patient reported that he does not want to go to a correction. Today in the morning, he woke up and prepare himself for breakfast without any help. On interview, the patient reported that he is still depressed we still waiting for lab results. The plan is to target nortriptyline up to 100 mg p.o. q.h.s. 12/21: Remains depressed. Reports high anxiety. Asked for more benzos. Denied. Ct Rx plan Medication Compliance: Yes Review of Systems Review of Systems negative except HPI Yes all other systems are reviewed and are negative Mental Status Exam Mental Status Exam Patient Appearance: Well Grooomed Patient Orientation: Person and Situation Level of Consciousness: Awake Patient Behavior: Cooperative Mood Description: Depressed Affect Description: Constricted Patient Cognition Impaired: No Ability to Follow Directions: Good Speech Pattern: Clear Memory Description: Intact Diagnostics Vital Signs (24Hr): Vital Signs - 24 hr 12/20/21 18:00 12/21/21 06:00 Temperature 97.8 F 98.2 F Pulse Rate 89 73 Respiratory Rate 18 18 Blood Pressure 130/73 127/73 Pulse Oximetry 96 96 BMI result Verdana 4 Body Mass Index Verdana 4 31.4 Verdana 4 Verdana 4 Labs Results: 12/09/21 19:15 12/09/21 19:15 Medications Medications Current Medications Acetaminophen (Acetaminophen 325 Mg Tablet) 650 mg PO Q6H PRN PRN Reason: Pain (Scale Score 1-3) Last Admin: 12/14/21 15:37 Dose: 650 mg Documented by: Acetaminophen (Acetaminophen 325 Mg Tablet) 650 mg PO Q6H PRN PRN Reason: Headache/Pain Mild Scale (1-3) Al Hydroxide/Mg Hydroxide (Magnesium Hydrox/Alum Hydrox 30 Ml Oral.Susp) 30 ml PO Q6H PRN PRN Reason: Heartburn/Nausea Last Admin: 12/16/21 14:54 Dose: 30 ml Documented by: Albuterol Sulfate (Albuterol Sulfate 90 Mcg 8 Gm Inhaler) 2 puff INHALE Q6H PRN PRN Reason: Shortness Of Breath Last Admin: 12/16/21 22:21 Dose: 2 puff Documented by: Amlodipine Besylate (Amlodipine Besylate 10 Mg Tablet) 10 mg PO DAILY [facility]; Protocol Last Admin: 12/21/21 09:25 Dose: 10 mg Documented by: Artificial Tears (Artificial Tears 15 Ml Drops) 1 drop EYE-BOTH Q1H PRN PRN Reason: Dry Eye(S) Finasteride (Finasteride 5 Mg Tablet) 5 mg PO DAILY [facility] Last Admin: 12/21/21 09:24 Dose: 5 mg Documented by: Gabapentin (Gabapentin 400 Mg Capsule) 400 mg PO TID [facility] Last Admin: 12/21/21 15:47 Dose: 400 mg Documented by: Hydrochlorothiazide (Hydrochlorothiazide 12.5 Mg Tablet) 12.5 mg PO DAILY [facility]; Protocol Last Admin: 12/21/21 09:24 Dose: 12.5 mg Documented by: Hydrocortisone (Hydrocortisone 1 % Cream 28.35 Gm Tube) 1 appl TOPICAL BID [facility]; Protocol Last Admin: 12/21/21 10:40 Dose: Not Given Documented by: Hydroxyzine HCl (Hydroxyzine Hcl 25 Mg Tablet) 25 mg PO BEDTIME PRN PRN Reason: Anxiety Last Admin: 12/18/21 03:17 Dose: 25 mg Documented by: Ibuprofen (Ibuprofen 400 Mg Tablet) 400 mg PO Q6H PRN PRN Reason: Pain, Moderate (Pain Scale 4-6 Last Admin: 12/21/21 09:30 Dose: 400 mg Documented by: Lamotrigine (Lamotrigine 100 Mg Tablet) 200 mg PO BID [facility] Last Admin: 12/21/21 09:25 Dose: 200 mg Documented by: Latanoprost (Latanoprost 0.005 % Ophth No 2.5 Ml Drops) 1 drop EYE-BOTH BEDTIME [facility] Last Admin: 12/20/21 21:59 Dose: 1 drop Documented by: Lidocaine (Lidocaine 4 % Patch Adh..Patch) 1 patch TRANSDERMA DAILY [facility]; Protocol Last Admin: 12/21/21 09:31 Dose: Not Given Documented by: Lisinopril (Lisinopril 40 Mg Tablet) 40 mg PO DAILY [facility]; Protocol Last Admin: 12/21/21 09:24 Dose: 40 mg Documented by: Magnesium Hydroxide (Milk Of Magnesia 30 Ml Oral.Susp) 30 ml PO Q72H PRN PRN Reason: Constipation Last Admin: 12/12/21 10:20 Dose: 30 ml Documented by: Magnesium Hydroxide (Milk Of Magnesia 30 Ml Oral.Susp) 30 ml PO DAILY PRN PRN Reason: Constipation Melatonin (Melatonin 3 Mg Tablet) 6 mg PO BEDTIME [facility] Last Admin: 12/20/21 22:00 Dose: 6 mg Documented by: Multivitamins/Vitamin C (Multivitamin Tablet) 1 tab PO DAILY [facility] Last Admin: 12/21/21 09:25 Dose: 1 tab Documented by: Nortriptyline HCl (Nortriptyline Hcl 25 Mg Capsule) 50 mg PO BEDTIME [facility] Last Admin: 12/20/21 22:00 Dose: 50 mg Documented by: Polyethylene Glycol (Polyethylene Glycol 3350 17 Gm Powd.Pack) 17 gm PO DAILY PRN PRN Reason: Constipation Polyethylene Glycol (Polyethylene Glycol 3350 17 Gm Powd.Pack) 17 gm PO DAILY@1600 [facility] Last Admin: 12/20/21 16:21 Dose: 17 gm Documented by: Pramipexole Dihydrochloride (Pramipexole Di-Hcl 0.125 Mg Tablet) 0.125 mg PO TID [facility] Last Admin: 12/21/21 15:47 Dose: 0.125 mg Documented by: Psyllium Hydrophilic Mucilloid (Psyllium Seed 3.4 Gm Powd.Pack) 3.4 gm PO DAILY [facility] Last Admin: 12/21/21 09:30 Dose: 3.4 gm Documented by: Quetiapine Fumarate (Quetiapine Fumarate 25 Mg Tablet) 25 mg PO BID PRN PRN Reason: Anxiety Last Admin: 12/21/21 12:23 Dose: 25 mg Documented by: Quetiapine Fumarate (Quetiapine Fumarate 50 Mg Tablet) 50 mg PO BEDTIME [facility] Last Admin: 12/20/21 22:00 Dose: 50 mg Documented by: Trazodone HCl (Trazodone Hcl 50 Mg Tablet) 50 mg PO BEDTIME PRN PRN Reason: Insomnia Last Admin: 12/21/21 01:14 Dose: 50 mg Documented by: Trazodone HCl (Trazodone Hcl 100 Mg Tablet) 200 mg PO BEDTIME [facility] Last Admin: 12/20/21 22:01 Dose: 200 mg Documented by: Vitamin D (Cholecalciferol (Vitamin D3) 10 Mcg Tablet) 20 mcg PO DAILY [facility] Last Admin: 02/05/22 09:24 Dose: 20 mcg Documented by: Allergies Allergies Allergy/AdvReac Type Severity Reaction Status Date / Time fentanyl [FENTANYL] Allergy Intermediate unknown Verified 05/22/21 11:43 Assessment & Plan Assessment & Plan (1) Major depressive disorder, recurrent severe without psychotic features: Status: Acute Code(s): F33.2 - Major depressive disorder, recurrent severe without psychotic features (2) Cognitive and neurobehavioral dysfunction following brain injury: Status: Acute Code(s): G31.89 - Other specified degenerative diseases of nervous system; F09 - Unspe cified mental disorder due to known physiological condition; S06.9X9S - Unspecified intracranial injury with loss of consciousness of unspecified duration, sequela (3) HTN (hypertension): Status: Acute Code(s): I10 - Essential (primary) hypertension Plan Middle-aged male with a long history of mood symptoms with several admissions into the hospital for suicidal ideation. He also carries a diagnosis of TBI, historically he used to be highly functional but at this moment his wheelchair bounded and very angry at times. Plan 1. Continue same medications. 2. Nortriptyline level on a subtherapeutic level we will titrated accordingly, we will check next Thursday on Pamelor 50 mg 3. Gather collateral information. 4. Discontinue Trintellix 2: Ct Rx plan I spent minutes with the patient and/or on the patient floor today, great er than?50% of which was spent counseling/coordinating care. Patient educated on: diagnosis Guardian/Caregiver educated on: medication risk/benefits Reason for contiued inpatient stay Substantial Risk for: harm to self
[2021-12-21 18:00] VITALS: BP 131/60; PULSE 76; RESP 18; TEMP 36.2; O2SAT 95
[2021-12-21] MEDS: Nortriptyline HCl 25 MG CAPSULE 50 MG PO (22:14)
[2021-12-21] MEDS: Melatonin 3 MG TABLET 6 MG PO (22:14)
[2021-12-21] MEDS: QUEtiapine Fumarate 50 MG TABLET PO (22:14)
[2021-12-21] MEDS: traZODone HCL 100 MG TABLET 200 MG PO (22:14)
[2021-12-21] MEDS: Acetaminophen 325 MG TABLET 650 MG PO (22:15)
[2021-12-21] MEDS: Latanoprost 0.005 % Ophth Sol 2.5 ML DROPS 1 DROP EYE-BOTH (22:26)
[2021-12-21] MEDS: Hydrocortisone 1 % Cream 28.35 GM TUBE 1 APPL TOPICAL (22:26)
--- NOTE | 2021-12-22 04:17 | HO.PSYCHPN ---
Subjective Subjective Date of Service: 12/22/21 Reason For Visit: SI Subjective Notes: Conditional Voluntary Interim History: 12/20:The staff reported that the patient has been visible in the unit. Physical therapy assessed him and he is not a candidate for subacute rehab. The patient reported that he does not want to go to a snf. Today in the morning, he woke up and prepare himself for breakfast without any help. On interview, the patient reported that he is still depressed we still waiting for lab results. The plan is to target nortriptyline up to 100 mg p.o. q.h.s. 12/21: Remains depressed. Reports high anxiety. Asked for more benzos. Denied. Ct Rx plan 12/22: focused on anxiety. Angles for benzos. Med compliant Had a good night. Slept well. Hopes DC next week after meds upped Review of Systems Review of Systems negative except HPI Yes all other systems are reviewed and are negative Mental Status Exam Mental Status Exam Patient Appearance: Well Grooomed Patient Orientation: Person and Situation Level of Consciousness: Awake Patient Behavior: Cooperative Mood Description: Depressed Affect Description: Constricted Patient Cognition Impaired: No Ability to Follow Directions: Good Speech Pattern: Clear Memory Description: Intact Diagnostics Vital Signs (24Hr): Vital Signs - 24 hr 12/21/21 06:00 12/21/21 18:00 Temperature 98.2 F 97.1 F Pulse Rate 73 76 Respiratory Rate 18 18 Blood Pressure 127/73 131/60 Pulse Oximetry 96 95 BMI result Body Mass Index 31.4 Labs Results: 12/09/21 19:15 12/09/21 19:15 Medications Medications Current Medications Acetaminophen (Acetaminophen 325 Mg Tablet) 650 mg PO Q6H PRN PRN Reason: Pain (Scale Score 1-3) Last Admin: 12/21/21 22:15 Dose: 650 mg Documented by: Acetaminophen (Acetaminophen 325 Mg Tablet) 650 mg PO Q6H PRN PRN Reason: Headache/Pain Mild Scale (1-3) Al Hydroxide/Mg Hydroxide (Magnesium Hydrox/Alum Hydrox 30 Ml Oral.Susp) 30 ml PO Q6H PRN PRN Reason: Heartburn/Nausea Last Admin: 12/16/21 14:54 Dose: 30 ml Documented by: Albuterol Sulfate (Albuterol Sulfate 90 Mcg 8 Gm Inhaler) 2 puff INHALE Q6H PRN PRN Reason: Shortness Of Breath Last Admin: 12/16/21 22:21 Dose: 2 puff Documented by: Amlodipine Besylate (Amlodipine Besylate 10 Mg Tablet) 10 mg PO DAILY [facility]; Protocol Last Admin: 12/21/21 09:25 Dose: 10 mg Documented by: Artificial Tears (Artificial Tears 15 Ml Drops) 1 drop EYE-BOTH Q1H PRN PRN Reason: Dry Eye(S) Finasteride (Finasteride 5 Mg Tablet) 5 mg PO DAILY [facility] Last Admin: 12/21/21 09:24 Dose: 5 mg Documented by: Gabapentin (Gabapentin 400 Mg Capsule) 400 mg PO TID [facility] Last Admin: 12/21/21 22:14 Dose: 400 mg Documented by: Hydrochlorothiazide (Hydrochlorothiazide 12.5 Mg Tablet) 12.5 mg PO DAILY [facility]; Protocol Last Admin: 12/21/21 09:24 Dose: 12.5 mg Documented by: Hydrocortisone (Hydrocortisone 1 % Cream 28.35 Gm Tube) 1 appl TOPICAL BID [facility]; Protocol Last Admin: 12/21/21 22:26 Dose: 1 appl Documented by: Hydroxyzine HCl (Hydroxyzine Hcl 25 Mg Tablet) 25 mg PO BEDTIME PRN PRN Reason: Anxiety Last Admin: 12/18/21 03:17 Dose: 25 mg Documented by: Ibuprofen (Ibuprofen 400 Mg Tablet) 400 mg PO Q6H PRN PRN Reason: Pain, Moderate (Pain Scale 4-6 Last Admin: 12/21/21 09:30 Dose: 400 mg Documented by: Lamotrigine (Lamotrigine 100 Mg Tablet) 200 mg PO BID [facility] Last Admin: 12/21/21 22:14 Dose: 200 mg Documented by: Latanoprost (Latanoprost 0.005 % Ophth No 2.5 Ml Drops) 1 drop EYE-BOTH BEDTIME [facility] Last Admin: 12/21/21 22:26 Dose: 1 drop Documented by: Lidocaine (Lidocaine 4 % Patch Adh..Patch) 1 patch TRANSDERMA DAILY [facility]; Protocol Last Admin: 12/21/21 09:31 Dose: Not Given Documented by: Lisinopril (Lisinopril 40 Mg Tablet) 40 mg PO DAILY [facility]; Protocol Last Admin: 12/21/21 09:24 Dose: 40 mg Documented by: Magnesium Hydroxide (Milk Of Magnesia 30 Ml Oral.Susp) 30 ml PO Q72H PRN PRN Reason: Constipation Last Admin: 12/12/21 10:20 Dose: 30 ml Documented by: Magnesium Hydroxide (Milk Of Magnesia 30 Ml Oral.Susp) 30 ml PO DAILY PRN PRN Reason: Constipation Melatonin (Melatonin 3 Mg Tablet) 6 mg PO BEDTIME [facility] Last Admin: 12/21/21 22:14 Dose: 6 mg Documented by: Multivitamins/Vitamin C (Multivitamin Tablet) 1 tab PO DAILY [facility] Last Admin: 12/21/21 09:25 Dose: 1 tab Documented by: Nortriptyline HCl (Nortriptyline Hcl 25 Mg Capsule) 50 mg PO BEDTIME [facility] Last Admin: 12/21/21 22:14 Dose: 50 mg Documented by: Polyethylene Glycol (Polyethylene Glycol 3350 17 Gm Powd.Pack) 17 gm PO DAILY PRN PRN Reason: Constipation Polyethylene Glycol (Polyethylene Glycol 3350 17 Gm Powd.Pack) 17 gm PO DAILY@1600 [facility] Last Admin: 12/21/21 17:41 Dose: Not Given Documented by: Pramipexole Dihydrochloride (Pramipexole Di-Hcl 0.125 Mg Tablet) 0.125 mg PO TID [facility] Last Admin: 12/21/21 22:15 Dose: 0.125 mg Documented by: Psyllium Hydrophilic Mucilloid (Psyllium Seed 3.4 Gm Powd.Pack) 3.4 gm PO DAILY [facility] Last Admin: 12/21/21 09:30 Dose: 3.4 gm Documented by: Quetiapine Fumarate (Quetiapine Fumarate 25 Mg Tablet) 25 mg PO BID PRN PRN Reason: Anxiety Last Admin: 12/21/21 12:23 Dose: 25 mg Documented by: Quetiapine Fumarate (Quetiapine Fumarate 50 Mg Tablet) 50 mg PO BEDTIME [facility] Last Admin: 12/21/21 22:14 Dose: 50 mg Documented by: Trazodone HCl (Trazodone Hcl 50 Mg Tablet) 50 mg PO BEDTIME PRN PRN Reason: Insomnia Last Admin: 12/21/21 01:14 Dose: 50 mg Documented by: Trazodone HCl (Trazodone Hcl 100 Mg Tablet) 200 mg PO BEDTIME [facility] Last Admin: 12/21/21 22:14 Dose: 200 mg Documented by: Vitamin D (Cholecalciferol (Vitamin D3) 10 Mcg Tablet) 20 mcg PO DAILY [facility] Last Admin: 12/21/21 09:24 Dose: 20 mcg Documented by: Allergies Allergies Allergy/AdvReac Type Severity Reaction Status Date / Time fentanyl [FENTANYL] Allergy Intermediate unknown Verified 05/22/21 11:43 Assessment & Plan Assessment & Plan (1) Major depressive disorder, recurrent severe without psychotic features: Status: Acute Code(s): F33.2 - Major depressive disorder, recurrent severe without psychotic features (2) Cognitive and neurobehavioral dysfunction following brain injury: Status: Acute Code(s): G31.89 - Other specified degenerative diseases of nervous system; F09 - Unspecified mental disorder due to known physiological condition; S06.9X9S - Unspecified intracranial injury with loss of consciousness of unspecified duration, sequela (3) HTN (hypertension): Status: Acute Code(s): I10 - Essential (primary) hypertension Plan Middle-aged male with a long history of mood symptoms with several admissions into the hospital for suicidal ideation. He also carries a diagnosis of TBI, historically he used to be highly functional but at this moment his wheelchair bounded and very angry at times. Plan 1. Continue same medications. 2. Nortriptyline level on a subtherapeutic level we will titrated accordingly, we will check next Thursday on Pamelor 50 mg 3. Gather collateral information. 4. Discontinue Trintellix 12/21: Ct Rx plan 12/22: Ct Nortriptiline I spent minutes with the patient and/or on the patient floor today, greater than?50% of which was spent counseling/coordinating care. Reason for contiued inpatient stay Substantial Risk for: harm to self, rapid decompensation and med/psych decompensation
[2021-12-22 06:00] VITALS: BP 139/76; PULSE 67; TEMP 36.1; O2SAT 96
[2021-12-22] MEDS: hydroCHLOROthiazide 12.5 MG TABLET PO (08:20)
[2021-12-22] MEDS: Finasteride 5 MG TABLET PO (08:21)
[2021-12-22] MEDS: Pramipexole Di-HCL 0.125 MG TABLET PO ×3 (08:21→21:40)
[2021-12-22] MEDS: Multivitamin TABLET 1 TAB PO (08:21)
[2021-12-22] MEDS: Cholecalciferol (Vitamin D3) 10 MCG TABLET 20 MCG PO (08:21)
[2021-12-22] MEDS: Gabapentin 400 MG CAPSULE PO ×3 (08:21→21:39)
[2021-12-22] MEDS: lamoTRIgine 100 MG TABLET 200 MG PO ×2 (08:21→21:40)
[2021-12-22] MEDS: amLODIPine Besylate 10 MG TABLET PO (08:21)
[2021-12-22] MEDS: lisinopriL 40 MG TABLET PO (08:21)
[2021-12-22] MEDS: polyethylene glycoL 3350 17 GM POWD.PACK PO ×2 (17:22→21:39)
[2021-12-22 19:57] VITALS: BP 164/83; PULSE 79; RESP 18; TEMP 36.6; O2SAT 98
[2021-12-22] MEDS: Ibuprofen 400 MG TABLET PO (20:22)
[2021-12-22] MEDS: traZODone HCL 100 MG TABLET 200 MG PO (21:39)
[2021-12-22] MEDS: QUEtiapine Fumarate 50 MG TABLET PO (21:39)
[2021-12-22] MEDS: Melatonin 3 MG TABLET 6 MG PO (21:39)
[2021-12-22] MEDS: Nortriptyline HCl 25 MG CAPSULE 50 MG PO (21:39)
[2021-12-22] MEDS: Latanoprost 0.005 % Ophth Sol 2.5 ML DROPS 1 DROP EYE-BOTH (21:40)
[2021-12-23 07:30] VITALS: BP 152/80; PULSE 73; RESP 16; TEMP 36.7; O2SAT 97
[2021-12-23] MEDS: lisinopriL 40 MG TABLET PO (08:15)
[2021-12-23] MEDS: amLODIPine Besylate 10 MG TABLET PO (08:15)
[2021-12-23] MEDS: Gabapentin 400 MG CAPSULE PO ×3 (08:15→21:26)
[2021-12-23] MEDS: Pramipexole Di-HCL 0.125 MG TABLET PO ×3 (08:15→21:26)
[2021-12-23] MEDS: hydroCHLOROthiazide 12.5 MG TABLET PO (08:15)
[2021-12-23] MEDS: Multivitamin TABLET 1 TAB PO (08:16)
[2021-12-23] MEDS: Cholecalciferol (Vitamin D3) 10 MCG TABLET 20 MCG PO (08:16)
[2021-12-23] MEDS: lamoTRIgine 100 MG TABLET 200 MG PO ×2 (08:16→21:26)
[2021-12-23] MEDS: Finasteride 5 MG TABLET PO (08:16)
[2021-12-23] MEDS: QUEtiapine Fumarate 25 MG TABLET PO (12:44)
[2021-12-23] MEDS: Docusate Sodium 100 MG CAPSULE PO (12:44)
[2021-12-23] MEDS: Ibuprofen 400 MG TABLET PO (12:46)
[2021-12-23] MEDS: Acetaminophen 325 MG TABLET 650 MG PO (16:17)
[2021-12-23] MEDS: polyethylene glycoL 3350 17 GM POWD.PACK PO (16:18)
[2021-12-23 18:00] VITALS: BP 110/67; PULSE 73; RESP 18; TEMP 36.4; O2SAT 97
--- NOTE | 2021-12-23 21:20 | HO.PSYCHPN ---
Subjective Subjective Date of Service: 12/23/21 Reason For Visit: SI Subjective Notes: [place] Warning and Conditional Voluntary Medical Problems Affecting Mental Status: No Interim History: pt cooperative superficially bright when seen ofstates he feels somewhat better today more reflective on nortriptyline seroquel Medication Compliance: Yes Side effects from medications: No Review of Systems Medical Review of Systems: unchanged Review of Systems: burning perineal or aarea Diagnostics Vital Signs (24Hr): Vital Signs - 24 hr 12/23/21 07:30 12/23/21 18:00 Temperature 98.0 F 97.5 F Pulse Rate 73 73 Respiratory Rate 16 18 Blood Pressure 152/80 H 110/67 Pulse Oximetry 97 97 BMI result Body Mass Index 31.4 Labs Results: 12/09/21 19:15 12/09/21 19:15 Medications Medications Current Medications Acetaminophen (Acetaminophen 325 Mg Tablet) 650 mg PO Q6H PRN PRN Reason: Pain (Scale Score 1-3) Last Admin: 12/23/21 16:17 Dose: 650 mg Documented by: Acetaminophen (Acetaminophen 325 Mg Tablet) 650 mg PO Q6H PRN PRN Reason: Headache/Pain Mild Scale (1-3) Al Hydroxide/Mg Hydroxide (Magnesium Hydrox/Alum Hydrox 30 Ml Oral.Susp) 30 ml PO Q6H PRN PRN Reason: Heartburn/Nausea Last Admin: 12/16/21 14:54 Dose: 30 ml Documented by: Albuterol Sulfate (Albuterol Sulfate 90 Mcg 8 Gm Inhaler) 2 puff INHALE Q6H PRN PRN Reason: Shortness Of Breath Last Admin: 12/16/21 22:21 Dose: 2 puff Documented by: Amlodipine Besylate (Amlodipine Besylate 10 Mg Tablet) 10 mg PO DAILY [facility]; Protocol Last Admin: 12/23/21 08:15 Dose: 10 mg Documented by: Artificial Tears (Artificial Tears 15 Ml Drops) 1 drop EYE-BOTH Q1H PRN PRN Reason: Dry Eye(S) Docusate Sodium (Docusate Sodium 100 Mg Capsule) 100 mg PO BID PRN PRN Reason: Constipation Last Admin: 12/23/21 12:44 Dose: 100 mg Documented by: Finasteride (Finasteride 5 Mg Tablet) 5 mg PO DAILY [facility] Last Admin: 12/23/21 08:16 Dose: 5 mg Documented by: Gabapentin (Gabapentin 400 Mg Capsule) 400 mg PO TID [facility] Last Admin: 12/23/21 16:18 Dose: 400 mg Documented by: Hydrochlorothiazide (Hydrochlorothiazide 12.5 Mg Tablet) 12.5 mg PO DAILY [facility]; Protocol Last Admin: 12/23/21 08:15 Dose: 12.5 mg Documented by: Hydrocortisone (Hydrocortisone 1 % Cream 28.35 Gm Tube) 1 appl TOPICAL BID [facility]; Protocol Last Admin: 12/23/21 10:58 Dose: Not Given Documented by: Hydroxyzine HCl (Hydroxyzine Hcl 25 Mg Tablet) 25 mg PO BEDTIME PRN PRN Reason: Anxiety Last Admin: 12/18/21 03:17 Dose: 25 mg Documented by: Ibuprofen (Ibuprofen 400 Mg Tablet) 400 mg PO Q6H PRN PRN Reason: Pain, Moderate (Pain Scale 4-6 Last Admin: 12/23/21 12:46 Dose: 400 mg Documented by: Lamotrigine (Lamotrigine 100 Mg Tablet) 200 mg PO BID [facility] Last Admin: 12/23/21 08:16 Dose: 200 mg Documented by: Latanoprost (Latanoprost 0.005 % Ophth No 2.5 Ml Drops) 1 drop EYE-BOTH BEDTIME [facility] Last Admin: 12/22/21 21:40 Dose: 1 drop Documented by: Lidocaine (Lidocaine 4 % Patch Adh..Patch) 1 patch TRANSDERMA DAILY [facility]; Protocol Last Admin: 12/23/21 10:58 Dose: Not Given Documented by: Lisinopril (Lisinopril 40 Mg Tablet) 40 mg PO DAILY [facility]; Protocol Last Admin: 12/23/21 08:15 Dose: 40 mg Documented by: Lorazepam (Lorazepam 0.5 Mg Tablet) 0.5 mg PO Q6H PRN PRN Reason: anxiety/restlessness Magnesium Hydroxide (Milk Of Magnesia 30 Ml Oral.Susp) 30 ml PO Q72H PRN PRN Reason: Constipation Last Admin: 12/12/21 10:20 Dose: 30 ml Documented by: Magnesium Hydroxide (Milk Of Magnesia 30 Ml Oral.Susp) 30 ml PO DAILY PRN PRN Reason: Constipation Melatonin (Melatonin 3 Mg Tablet) 6 mg PO BEDTIME [facility] Last Admin: 12/22/21 21:39 Dose: 6 mg Documented by: Multivitamins/Vitamin C (Multivitamin Tablet) 1 tab PO DAILY [facility] Last Admin: 12/23/21 08:16 Dose: 1 tab Documented by: Nortriptyline HCl (Nortriptyline Hcl 25 Mg Capsule) 50 mg PO BEDTIME [facility] Last Admin: 12/22/21 21:39 Dose: 50 mg Documented by: Polyethylene Glycol (Polyethylene Glycol 3350 17 Gm Powd.Pack) 17 gm PO DAILY PRN PRN Reason: Constipation Last Admin: 12/22/21 21:39 Dose: 17 gm Documented by: Polyethylene Glycol (Polyethylene Glycol 3350 17 Gm Powd.Pack) 17 gm PO DAILY@1600 [facility] Last Admin: 12/23/21 16:18 Dose: 17 gm Documented by: Pramipexole Dihydrochloride (Pramipexole Di-Hcl 0.125 Mg Tablet) 0.125 mg PO TID [facility] Last Admin: 12/23/21 16:18 Dose: 0.125 mg Documented by: Psyllium Hydrophilic Mucilloid (Psyllium Seed 3.4 Gm Powd.Pack) 3.4 gm PO DAILY [facility] Last Admin: 12/23/21 08:16 Dose: 3.4 gm Documented by: Quetiapine Fumarate (Quetiapine Fumarate 25 Mg Tablet) 25 mg PO BID PRN PRN Reason: Anxiety Last Admin: 12/21/21 12:23 Dose: 25 mg Documented by: Quetiapine Fumarate (Quetiapine Fumarate 50 Mg Tablet) 50 mg PO BEDTIME [facility] Last Admin: 12/22/21 21:39 Dose: 50 mg Documented by: Quetiapine Fumarate (Quetiapine Fumarate 25 Mg Tablet) 25 mg PO DAILY@1300 [facility] Last Admin: 12/23/21 12:44 Dose: 25 mg Documented by: Trazodone HCl (Trazodone Hcl 50 Mg Tablet) 50 mg PO BEDTIME PRN PRN Reason: Insomnia Last Admin: 12/21/21 01:14 Dose: 50 mg Documented by: Trazodone HCl (Trazodone Hcl 100 Mg Tablet) 200 mg PO BEDTIME [facility] Last Admin: 12/22/21 21:39 Dose: 200 mg Documented by: Vitamin D (Cholecalciferol (Vitamin D3) 10 Mcg Tablet) 20 mcg PO DAILY [facility] Last Admin: 12/23/21 08:16 Dose: 20 mcg Documented by: Allergies Allergies Allergy/AdvReac Type Severity Reaction Status Date / Time fentanyl [FENTANYL] Allergy Intermediate unknown Verified 05/22/21 11:43 Assessment & Plan Assessment & Plan (1) Major depressive disorder, recurrent severe without psychotic features: Status: Acute Code(s): F33.2 - Major depressive disorder, recurrent severe without psychotic features Assessment and Plan: stop trintellix cont nortrip seroquel ck re 1sponse check for si limited coping encourage alt way to look and cope with things encourage aftercare IT grp (2) Cognitive and neurobehavioral dysfunction following brain injury: Status: Acute Code(s): G31.89 - Other specified degenerative diseases of nervous system; F09 - Unspecified mental disorder due to known physiological condition; S06.9X9S - Unspecified intracranial injury with loss of consciousness of unspecified duration, sequela Assessment and Plan: Thegabapentin lamictal (3) HTN (hypertension): Status: Acute Code(s): I10 - Essential (primary) hypertension Plan Middle-aged male with a long history of mood symptoms with several admissions into the hospital for suicidal ideation. He also carries a diagnosis of TBI, historically he used to be highly functional but at this moment his wheelchair bounded and very angry at times. Plan 1. Continue same medications. 2. Nortriptyline level on a subtherapeutic level we will titrated accordingly, we will check next Thursday on Pamelor 50 mg 3. Gather collateral information. 4. Discontinue Trintellix 12/21: Ct Rx plan 12/22: Ct Nortriptiline I spent minutes with the patient and/or on the patient floor today, greater than?50% of which was spent counseling/coordinating care. Reason for contiued inpatient stay Substantial Risk for: rapid decompensation and med/psych decompensation
[2021-12-23] MEDS: Latanoprost 0.005 % Ophth Sol 2.5 ML DROPS 1 DROP EYE-BOTH (21:25)
[2021-12-23] MEDS: Hydrocortisone 1 % Cream 28.35 GM TUBE 1 APPL TOPICAL (21:25)
[2021-12-23] MEDS: QUEtiapine Fumarate 50 MG TABLET PO (21:26)
[2021-12-23] MEDS: traZODone HCL 100 MG TABLET 200 MG PO (21:26)
[2021-12-23] MEDS: Melatonin 3 MG TABLET 6 MG PO (21:26)
[2021-12-23] MEDS: Nortriptyline HCl 25 MG CAPSULE 50 MG PO (21:26)
[2021-12-24 06:00] VITALS: BP 141/72; PULSE 70; RESP 18; TEMP 36.6; O2SAT 98
[2021-12-24] MEDS: Albuterol Sulfate 90 MCG 8 GM INHALER 2 PUFF INHALE ×2 (06:37→21:33)
[2021-12-24] MEDS: Acetaminophen 325 MG TABLET 650 MG PO ×2 (06:44→19:54)
[2021-12-24] MEDS: Gabapentin 400 MG CAPSULE PO ×3 (08:32→21:34)
[2021-12-24] MEDS: Cholecalciferol (Vitamin D3) 10 MCG TABLET 20 MCG PO (08:33)
[2021-12-24] MEDS: hydroCHLOROthiazide 12.5 MG TABLET PO (08:33)
[2021-12-24] MEDS: amLODIPine Besylate 10 MG TABLET PO (08:33)
[2021-12-24] MEDS: Pramipexole Di-HCL 0.125 MG TABLET PO ×3 (08:33→21:34)
[2021-12-24] MEDS: lamoTRIgine 100 MG TABLET 200 MG PO ×2 (08:33→21:34)
[2021-12-24] MEDS: lisinopriL 40 MG TABLET PO (08:33)
[2021-12-24] MEDS: Multivitamin TABLET 1 TAB PO (08:34)
[2021-12-24] MEDS: Finasteride 5 MG TABLET PO (08:34)
[2021-12-24] MEDS: QUEtiapine Fumarate 25 MG TABLET PO (14:12)
[2021-12-24] MEDS: Ibuprofen 400 MG TABLET PO ×2 (15:11→21:34)
[2021-12-24] MEDS: polyethylene glycoL 3350 17 GM POWD.PACK PO (15:13)
--- NOTE | 2021-12-24 17:02 | HO.PSYCHPN ---
Subjective Subjective Date of Service: 12/24/21 Reason For Visit: SI Subjective Notes: Conditional Voluntary Interim History: The staff reported the patient complains of anxiety and depression. Even the he claims to be very depressed he was seen watching TV and being visible in the common areas. The social science teacher reported that last week he was confronted with the fact that he was not cooperating on his care and apparently he was able to recount part of his story. On interview today the patient reported that he is very irritable and angry very emotional is patient at night. We discussed his treatment options and he agreed to increase amitriptyline at night. Mental Status Exam Mental Status Exam Patient Appearance: Well Grooomed Patient Orientation: Person Level of Consciousness: Awake Patient Behavior: Cooperative Mood Description: Depressed Affect Description: Constricted Patient Cognition Impaired: No Ability to Follow Directions: Good Speech Pattern: Clear Hallucinations: None Delusions: Paranoid Ideation Thought Process: Linear Thought Content: positive for Intact and positive for Circumstantial Judgement: Fair Diagnostics Vital Signs (24Hr): Vital Signs - 24 hr 12/23/21 18:00 12/24/21 06:00 Temperature 97.5 F 97.9 F Pulse Rate 73 70 Respiratory Rate 18 18 Blood Pressure 110/67 141/72 H Pulse Oximetry 97 98 BMI result Body Mass Index 31.4 Labs Results: 12/09/21 19:15 12/09/21 19:15 Medications Medications Current Medications Acetaminophen (Acetaminophen 325 Mg Tablet) 650 mg PO Q6H PRN PRN Reason: Pain (Scale Score 1-3) Last Admin: 12/24/21 06:44 Dose: 650 mg Documented by: Acetaminophen (Acetaminophen 325 Mg Tablet) 650 mg PO Q6H PRN PRN Reason: Headache/Pain Mild Scale (1-3) Al Hydroxide/Mg Hydroxide (Magnesium Hydrox/Alum Hydrox 30 Ml Oral.Susp) 30 ml PO Q6H PRN PRN Reason: Heartburn/Nausea Last Admin: 12/16/21 14:54 Dose: 30 ml Documented by: Albuterol Sulfate (Albuterol Sulfate 90 Mcg 8 Gm Inhaler) 2 puff INHALE Q6H PRN PRN Reason: Shortness Of Breath Last Admin: 12/24/21 06:37 Dose: 2 puff Documented by: Amlodipine Besylate (Amlodipine Besylate 10 Mg Tablet) 10 mg PO DAILY [facility]; Protocol Last Admin: 12/24/21 08:33 Dose: 10 mg Documented by: Artificial Tears (Artificial Tears 15 Ml Drops) 1 drop EYE-BOTH Q1H PRN PRN Reason: Dry Eye(S) Docusate Sodium (Docusate Sodium 100 Mg Capsule) 100 mg PO BID PRN PRN Reason: Constipation Last Admin: 12/23/21 12:44 Dose: 100 mg Documented by: Finasteride (Finasteride 5 Mg Tablet) 5 mg PO DAILY [facility] Last Admin: 12/24/21 08:34 Dose: 5 mg Documented by: Gabapentin (Gabapentin 400 Mg Capsule) 400 mg PO TID [facility] Last Admin: 12/24/21 15:11 Dose: 400 mg Documented by: Hydrochlorothiazide (Hydrochlorothiazide 12.5 Mg Tablet) 12.5 mg PO DAILY [facility]; Protocol Last Admin: 12/24/21 08:33 Dose: 12.5 mg Documented by: Hydrocortisone (Hydrocortisone 1 % Cream 28.35 Gm Tube) 1 appl TOPICAL BID [facility]; Protocol Last Admin: 12/24/21 08:38 Dose: Not Given Documented by: Hydroxyzine HCl (Hydroxyzine Hcl 25 Mg Tablet) 25 mg PO BEDTIME PRN PRN Reason: Anxiety Last Admin: 12/18/21 03:17 Dose: 25 mg Documented by: Ibuprofen (Ibuprofen 400 Mg Tablet) 400 mg PO Q6H PRN PRN Reason: Pain, Moderate (Pain Scale 4-6 Last Admin: 12/24/21 15:11 Dose: 400 mg Documented by: Lamotrigine (Lamotrigine 100 Mg Tablet) 200 mg PO BID [facility] Last Admin: 12/24/21 08:33 Dose: 200 mg Documented by: Latanoprost (Latanoprost 0.005 % Ophth No 2.5 Ml Drops) 1 drop EYE-BOTH BEDTIME [facility] Last Admin: 12/23/21 21:25 Dose: 1 drop Documented by: Lidocaine (Lidocaine 4 % Patch Adh..Patch) 1 patch TRANSDERMA DAILY [facility]; Protocol Last Admin: 12/24/21 08:39 Dose: Not Given Documented by: Lisinopril (Lisinopril 40 Mg Tablet) 40 mg PO DAILY [facility]; Protocol Last Admin: 12/24/21 08:33 Dose: 40 mg Documented by: Lorazepam (Lorazepam 0.5 Mg Tablet) 0.5 mg PO Q6H PRN PRN Reason: anxiety/restlessness Magnesium Hydroxide (Milk Of Magnesia 30 Ml Oral.Susp) 30 ml PO Q72H PRN PRN Reason: Constipation Last Admin: 12/12/21 10:20 Dose: 30 ml Documented by: Magnesium Hydroxide (Milk Of Magnesia 30 Ml Oral.Susp) 30 ml PO DAILY PRN PRN Reason: Constipation Melatonin (Melatonin 3 Mg Tablet) 6 mg PO BEDTIME [facility] Last Admin: 12/23/21 21:26 Dose: 6 mg Documented by: Multivitamins/Vitamin C (Multivitamin Tablet) 1 tab PO DAILY [facility] Last Admin: 12/24/21 08:34 Dose: 1 tab Documented by: Nortriptyline HCl (Nortriptyline Hcl 25 Mg Capsule) 50 mg PO BEDTIME [facility] Last Admin: 12/23/21 21:26 Dose: 50 mg Documented by: Nystatin (Nystatin Cream 15 Gm Tube) 1 appl TOPICAL BID [facility]; Protocol Polyethylene Glycol (Polyethylene Glycol 3350 17 Gm Powd.Pack) 17 gm PO DAILY PRN PRN Reason: Constipation Last Admin: 12/22/21 21:39 Dose: 17 gm Documented by: Polyethylene Glycol (Polyethylene Glycol 3350 17 Gm Powd.Pack) 17 gm PO DAILY@1600 [facility] Last Admin: 12/24/21 15:13 Dose: 17 gm Documented by: Pramipexole Dihydrochloride (Pramipexole Di-Hcl 0.125 Mg Tablet) 0.125 mg PO TID [facility] Last Admin: 12/24/21 15:11 Dose: 0.125 mg Documented by: Psyllium Hydrophilic Mucilloid (Psyllium Seed 3.4 Gm Powd.Pack) 3.4 gm PO DAILY [facility] Last Admin: 12/24/21 08:34 Dose: 3.4 gm Documented by: Quetiapine Fumarate (Quetiapine Fumarate 25 Mg Tablet) 25 mg PO BID PRN PRN Reason: Anxiety Last Admin: 12/21/21 12:23 Dose: 25 mg Documented by: Quetiapine Fumarate (Quetiapine Fumarate 50 Mg Tablet) 50 mg PO BEDTIME [facility] Last Admin: 12/23/21 21:26 Dose: 50 mg Documented by: Quetiapine Fumarate (Quetiapine Fumarate 25 Mg Tablet) 25 mg PO DAILY@1300 [facility] Last Admin: 12/24/21 14:12 Dose: 25 mg Documented by: Trazodone HCl (Trazodone Hcl 50 Mg Tablet) 50 mg PO BEDTIME PRN PRN Reason: Insomnia Last Admin: 12/21/21 01:14 Dose: 50 mg Documented by: Trazodone HCl (Trazodone Hcl 100 Mg Tablet) 200 mg PO BEDTIME [facility] Last Admin: 12/23/21 21:26 Dose: 200 mg Documented by: Vitamin D (Cholecalciferol (Vitamin D3) 10 Mcg Tablet) 20 mcg PO DAILY [facility] Last Admin: 12/24/21 08:33 Dose: 20 mcg Documented by: Allergies Allergies Allergy/AdvReac Type Severity Reaction Status Date / Time fentanyl [FENTANYL] Allergy Intermediate unknown Verified 05/22/21 11:43 Assessment & Plan Assessment & Plan (1) Major depressive disorder, recurrent severe without psychotic features: Status: Acute Code(s): F33.2 - Major depressive disorder, recurrent severe without psychotic features Assessment and Plan: stop trintellix cont nortrip seroquel ck re 1sponse check for si limited coping encourage alt way to look and cope with things encourage aftercare IT grp (2) Cognitive and neurobehavioral dysfunction following brain injury: Status: Acute Code(s): G31.89 - Other specified degenerative diseases of nervous system; F09 - Unspecified mental disorder due to known physiological condition; S06.9X9S - Unspecified intracranial injury with loss of consciousness of unspecified duration, sequela Assessment and Plan: Thegabapentin lamictal (3) HTN (hypertension): Status: Acute Code(s): I10 - Essential (primary) hypertension Plan Middle-aged male with a long history of mood symptoms with several admissions into the hospital for suicidal ideation. He also carries a diagnosis of TBI, historically he used to be highly functional but at this moment his wheelchair bounded and very angry at times. Plan 1. Continue same medications. 2. Nortriptyline level on a subtherapeutic level we will titrated accordingly, w increase Pamelor up to 75 mg 3. Gather collateral information. 4. Discontinue Trintellix 12/21: Ct Rx plan 12/22: Ct Nortriptiline I spent minutes with the patient and/or on the patient floor today, greater than?50% of which was spent counseling/coordinating care. Reason for contiued inpatient stay Substantial Risk for: inability to function, rapid decompensation and med/psych decompensation
[2021-12-24 21:15] VITALS: BP 134/64; PULSE 77; RESP 21; TEMP 36.6; O2SAT 96
[2021-12-24] MEDS: Latanoprost 0.005 % Ophth Sol 2.5 ML DROPS 1 DROP EYE-BOTH (21:33)
[2021-12-24] MEDS: Hydrocortisone 1 % Cream 28.35 GM TUBE 1 APPL TOPICAL (21:33)
[2021-12-24] MEDS: Nortriptyline HCl 25 MG CAPSULE 75 MG PO (21:34)
[2021-12-24] MEDS: QUEtiapine Fumarate 50 MG TABLET PO (21:34)
[2021-12-24] MEDS: Melatonin 3 MG TABLET 6 MG PO (21:35)
[2021-12-24] MEDS: traZODone HCL 100 MG TABLET 200 MG PO (21:35)
[2021-12-25 07:40] VITALS: BP 137/67; PULSE 80; RESP 18; TEMP 36.2; O2SAT 96
[2021-12-25] MEDS: Cholecalciferol (Vitamin D3) 10 MCG TABLET 20 MCG PO (08:33)
[2021-12-25] MEDS: lisinopriL 40 MG TABLET PO (08:33)
[2021-12-25] MEDS: Pramipexole Di-HCL 0.125 MG TABLET PO ×3 (08:33→21:28)
[2021-12-25] MEDS: lamoTRIgine 100 MG TABLET 200 MG PO ×2 (08:33→22:02)
[2021-12-25] MEDS: amLODIPine Besylate 10 MG TABLET PO (08:33)
[2021-12-25] MEDS: Multivitamin TABLET 1 TAB PO (08:33)
[2021-12-25] MEDS: Finasteride 5 MG TABLET PO (08:34)
[2021-12-25] MEDS: Ibuprofen 400 MG TABLET PO ×2 (08:34→17:01)
[2021-12-25] MEDS: hydroCHLOROthiazide 12.5 MG TABLET PO (08:34)
[2021-12-25] MEDS: Gabapentin 400 MG CAPSULE PO ×3 (08:41→21:25)
[2021-12-25] MEDS: Acetaminophen 325 MG TABLET 650 MG PO (14:26)
[2021-12-25] MEDS: QUEtiapine Fumarate 25 MG TABLET PO (14:27)
[2021-12-25] MEDS: polyethylene glycoL 3350 17 GM POWD.PACK PO (17:02)
--- NOTE | 2021-12-25 17:08 | HO.PSYCHPN ---
Subjective Subjective Date of Service: 12/25/21 Reason For Visit: SI Subjective Notes: Conditional Voluntary Interim History: The nursing staff reported patient complained of poor balance yesterday. He reports that he is feeling depressed and he is attention seeking at times. Today in the afternoon, he nearly fell the staff needed to grab him even though that he was not cooperating. We need to bring him special equipment from now on to transfer him to his wheelchair in a safely manner. I explained him that I am not comfortable discharging him to the custodial if it is unsafe for him to be by himself and he can fell and hurt himself. He stated that he is not planning on going to a group home. Mental Status Exam Mental Status Exam Patient Appearance: Well Grooomed Patient Orientation: Person and Situation Level of Consciousness: Awake Patient Behavior: Appropriate and Cooperative Mood Description: Depressed Affect Description: Constricted Patient Cognition Impaired: No Ability to Follow Directions: Good Speech Pattern: Clear Hallucinations: None Delusions: Not Present Thought Process: Linear Thought Content: positive for Circumstantial Judgement: Fair Diagnostics Vital Signs (24Hr): Vital Signs - 24 hr 12/24/21 21:15 12/25/21 07:40 Temperature 97.9 F 97.2 F Pulse Rate 77 80 Respiratory Rate 21 H 18 Blood Pressure 134/64 137/67 Pulse Oximetry 96 96 BMI result Body Mass Index 31.4 Labs Results: 12/09/21 19:15 12/09/21 19:15 Medications Medications Current Medications Acetaminophen (Acetaminophen 325 Mg Tablet) 650 mg PO Q6H PRN PRN Reason: Pain (Scale Score 1-3) Last Admin: 12/25/21 14:26 Dose: 650 mg Documented by: Acetaminophen (Acetaminophen 325 Mg Tablet) 650 mg PO Q6H PRN PRN Reason: Headache/Pain Mild Scale (1-3) Al Hydroxide/Mg Hydroxide (Magnesium Hydrox/Alum Hydrox 30 Ml Oral.Susp) 30 ml PO Q6H PRN PRN Reason: Heartburn/Nausea Last Admin: 12/16/21 14:54 Dose: 30 ml Documented by: Albuterol Sulfate (Albuterol Sulfate 90 Mcg 8 Gm Inhaler) 2 puff INHALE Q6H PRN PRN Reason: Shortness Of Breath Last Admin: 12/24/21 21:33 Dose: 2 puff Documented by: Amlodipine Besylate (Amlodipine Besylate 10 Mg Tablet) 10 mg PO DAILY [facility]; Protocol Last Admin: 12/25/21 08:33 Dose: 10 mg Documented by: Artificial Tears (Artificial Tears 15 Ml Drops) 1 drop EYE-BOTH Q1H PRN PRN Reason: Dry Eye(S) Docusate Sodium (Docusate Sodium 100 Mg Capsule) 100 mg PO BID PRN PRN Reason: Constipation Last Admin: 12/23/21 12:44 Dose: 100 mg Documented by: Finasteride (Finasteride 5 Mg Tablet) 5 mg PO DAILY [facility] Last Admin: 12/25/21 08:34 Dose: 5 mg Documented by: Gabapentin (Gabapentin 400 Mg Capsule) 400 mg PO TID [facility] Last Admin: 12/25/21 14:27 Dose: 400 mg Documented by: Hydrochlorothiazide (Hydrochlorothiazide 12.5 Mg Tablet) 12.5 mg PO DAILY [facility]; Protocol Last Admin: 12/25/21 08:34 Dose: 12.5 mg Documented by: Hydrocortisone (Hydrocortisone 1 % Cream 28.35 Gm Tube) 1 appl TOPICAL BID [facility]; Protocol Last Admin: 12/25/21 08:50 Dose: Not Given Documented by: Hydroxyzine HCl (Hydroxyzine Hcl 25 Mg Tablet) 25 mg PO BEDTIME PRN PRN Reason: Anxiety Last Admin: 12/18/21 03:17 Dose: 25 mg Documented by: Ibuprofen (Ibuprofen 400 Mg Tablet) 400 mg PO Q6H PRN PRN Reason: Pain, Moderate (Pain Scale 4-6 Last Admin: 12/25/21 17:01 Dose: 400 mg Documented by: Lamotrigine (Lamotrigine 100 Mg Tablet) 200 mg PO BID [facility] Last Admin: 12/25/21 08:33 Dose: 200 mg Documented by: Latanoprost (Latanoprost 0.005 % Ophth No 2.5 Ml Drops) 1 drop EYE-BOTH BEDTIME [facility]Z Last Admin: 12/24/21 21:33 Dose: 1 drop Documented by: Lidocaine (Lidocaine 4 % Patch Adh..Patch) 1 patch TRANSDERMA DAILY [facility]; Protocol Last Admin: 12/25/21 08:50 Dose: Not Given Documented by: Lisinopril (Lisinopril 40 Mg Tablet) 40 mg PO DAILY [facility]; Protocol Last Admin: 12/25/21 08:33 Dose: 40 mg Documented by: Lorazepam (Lorazepam 0.5 Mg Tablet) 0.5 mg PO Q6H PRN PRN Reason: anxiety/restlessness Magnesium Hydroxide (Milk Of Magnesia 30 Ml Oral.Susp) 30 ml PO Q72H PRN PRN Reason: Constipation Last Admin: 12/12/21 10:20 Dose: 30 ml Documented by: Magnesium Hydroxide (Milk Of Magnesia 30 Ml Oral.Susp) 30 ml PO DAILY PRN PRN Reason: Constipation Melatonin (Melatonin 3 Mg Tablet) 6 mg PO BEDTIME [facility] Last Admin: 12/24/21 21:35 Dose: 6 mg Documented by: Multivitamins/Vitamin C (Multivitamin Tablet) 1 tab PO DAILY [facility] Last Admin: 12/25/21 08:33 Dose: 1 tab Documented by: Nortriptyline HCl (Nortriptyline Hcl 25 Mg Capsule) 75 mg PO BEDTIME [facility] Last Admin: 12/24/21 21:34 Dose: 75 mg Documented by: Nystatin (Nystatin Cream 15 Gm Tube) 1 appl TOPICAL BID [facility]; Protocol Last Admin: 12/25/21 08:51 Dose: Not Given Documented by: Polyethylene Glycol (Polyethylene Glycol 3350 17 Gm Powd.Pack) 17 gm PO DAILY PRN PRN Reason: Constipation Last Admin: 12/22/21 21:39 Dose: 17 gm Documented by: Polyethylene Glycol (Polyethylene Glycol 3350 17 Gm Powd.Pack) 17 gm PO DAILY@1600 [facility] Last Admin: 12/25/21 17:02 Dose: 17 gm Documented by: Pramipexole Dihydrochloride (Pramipexole Di-Hcl 0.125 Mg Tablet) 0.125 mg PO TID [facility] Last Admin: 12/25/21 14:27 Dose: 0.125 mg Documented by: Psyllium Hydrophilic Mucilloid (Psyllium Seed 3.4 Gm Powd.Pack) 3.4 gm PO DAILY [facility] Last Admin: 12/25/21 08:34 Dose: 3.4 gm Documented by: Quetiapine Fumarate (Quetiapine Fumarate 25 Mg Tablet) 25 mg PO BID PRN PRN Reason: Anxiety Last Admin: 12/21/21 12:23 Dose: 25 mg Documented by: Quetiapine Fumarate (Quetiapine Fumarate 50 Mg Tablet) 50 mg PO BEDTIME [facility] Last Admin: 12/24/21 21:34 Dose: 50 mg Documented by: Quetiapine Fumarate (Quetiapine Fumarate 25 Mg Tablet) 25 mg PO DAILY@1300 [facility] Last Admin: 12/25/21 14:27 Dose: 25 mg Documented by: Trazodone HCl (Trazodone Hcl 50 Mg Tablet) 50 mg PO BEDTIME PRN PRN Reason: Insomnia Last Admin: 12/21/21 01:14 Dose: 50 mg Documented by: Trazodone HCl (Trazodone Hcl 100 Mg Tablet) 200 mg PO BEDTIME [facility] Last Admin: 12/24/21 21:35 Dose: 200 mg Documented by: Vitamin D (Cholecalciferol (Vitamin D3) 10 Mcg Tablet) 20 mcg PO DAILY [facility] Last Admin: 12/25/21 08:33 Dose: 20 mcg Documented by: Allergies Allergies Allergy/AdvReac Type Severity Reaction Status Date / Time fentanyl [FENTANYL] Allergy Intermediate unknown Verified 05/22/21 11:43 Assessment & Plan Assessment & Plan (1) Major depressive disorder, recurrent severe without psychotic features: Status: Acute Code(s): F33.2 - Major depressive disorder, recurrent severe without psychotic features Assessment and Plan: stop trintellix cont nortrip seroquel ck re 1sponse check for si limited coping encourage alt way to look and cope with things encourage aftercare IT grp (2) Cognitive and neurobehavioral dysfunction following brain injury: Status: Acute Code(s): G31.89 - Other specified degenerative diseases of nervous system; F09 - Unspecified mental disorder due to known physiological condition; S06.9X9S - Unspecified intracranial injury with loss of consciousness of unspecified duration, sequela Assessment and Plan: Thegabapentin lamictal (3) HTN (hypertension): Status: Acute Code(s): I10 - Essential (primary) hypertension Plan Middle-aged male with a long history of mood symptoms with several admissions into the hospital for suicidal ideation. He also carries a diagnosis of TBI, historically he used to be highly functional but at this moment his wheelchair bounded and very angry at times. Plan 1. Continue same medications. 2. Nortriptyline level on a subtherapeutic level we will titrated accordingly, w increase Pamelor up to 75 mg 3. Gather collateral information. 4. Discontinue Trintellix 12/21: Ct Rx plan 12/22: Ct Nortriptiline I spent minutes with the patient and/or on the patient floor today, greater than?50% of which was spent counseling/coordinating care. Reason for contiued inpatient stay Substantial Risk for: inability to function, rapid decompensation and med/psych decompensation
[2021-12-25 18:00] VITALS: BP 115/62; PULSE 85; RESP 18; TEMP 36.4; O2SAT 95
[2021-12-25] MEDS: traZODone HCL 100 MG TABLET 200 MG PO (21:25)
[2021-12-25] MEDS: LORazepam 0.5 MG TABLET PO (21:26)
[2021-12-25] MEDS: Nortriptyline HCl 25 MG CAPSULE 75 MG PO (21:26)
[2021-12-25] MEDS: QUEtiapine Fumarate 50 MG TABLET PO (21:27)
[2021-12-25] MEDS: Melatonin 3 MG TABLET 6 MG PO (21:28)
[2021-12-25] MEDS: Latanoprost 0.005 % Ophth Sol 2.5 ML DROPS 1 DROP EYE-BOTH (21:31)
[2021-12-25] MEDS: Hydrocortisone 1 % Cream 28.35 GM TUBE 1 APPL TOPICAL (21:32)
[2021-12-25] MEDS: Nystatin Cream 15 GM TUBE 1 APPL TOPICAL (21:32)
[2021-12-26 06:00] VITALS: BP 127/68; PULSE 87; RESP 18; TEMP 36.8; O2SAT 96
[2021-12-26] MEDS: Gabapentin 400 MG CAPSULE PO ×3 (08:58→21:13)
[2021-12-26] MEDS: amLODIPine Besylate 10 MG TABLET PO (08:58)
[2021-12-26] MEDS: Multivitamin TABLET 1 TAB PO (08:58)
[2021-12-26] MEDS: Cholecalciferol (Vitamin D3) 10 MCG TABLET 20 MCG PO (08:58)
[2021-12-26] MEDS: hydroCHLOROthiazide 12.5 MG TABLET PO (08:58)
[2021-12-26] MEDS: lisinopriL 40 MG TABLET PO (08:58)
[2021-12-26] MEDS: Ibuprofen 400 MG TABLET PO ×2 (08:58→19:53)
[2021-12-26] MEDS: lamoTRIgine 100 MG TABLET 200 MG PO ×2 (08:58→21:13)
[2021-12-26] MEDS: Finasteride 5 MG TABLET PO (08:58)
[2021-12-26] MEDS: Pramipexole Di-HCL 0.125 MG TABLET PO ×3 (08:58→21:15)
[2021-12-26] MEDS: QUEtiapine Fumarate 25 MG TABLET PO (13:40)
[2021-12-26] MEDS: LORazepam 0.5 MG TABLET PO (13:47)
--- NOTE | 2021-12-26 15:46 | HO.PSYCHPN ---
Subjective Subjective Date of Service: 12/26/21 Reason For Visit: SI Subjective Notes: Conditional Voluntary Interim History: The staff reported that yesterday the patient was requesting for a cushion for his wheelchair and he was not divided only physical therapy can do that but it will take several weeks to provide that item. The staff reported that he purposely tried to lower himself and fall . On interview, the patient adamantly denied that he tried to purposely fell and he stated he is very angry at times and frustrated. Again he does not want to go to a [facility] but I explained that if he can not take care of himself and he is falling and he needs constant staff help for his ADLs, it will not be safe to discharge him to the [facility]. He agreed to continue on the plan of titration of antidepressants. Still waiting for amitriptyline level Mental Status Exam Mental Status Exam Patient Appearance: Well Grooomed Patient Orientation: Person Level of Consciousness: Awake Patient Behavior: Cooperative Mood Description: Depressed Affect Description: Constricted Patient Cognition Impaired: No Ability to Follow Directions: Good Speech Pattern: Clear Memory Description: Intact Hallucinations: None Delusions: Not Present Thought Process: Linear Thought Content: positive for Circumstantial Judgement: Fair Diagnostics Vital Signs (24Hr): Vital Signs - 24 hr 12/25/21 18:00 12/26/21 06:00 Temperature 97.6 F 98.2 F Pulse Rate 85 87 Respiratory Rate 18 18 Blood Pressure 115/62 127/68 Pulse Oximetry 95 96 BMI result Body Mass Index 31.4 Labs Results: 12/09/21 19:15 12/09/21 19:15 Medications Medications Current Medications Acetaminophen (Acetaminophen 325 Mg Tablet) 650 mg PO Q6H PRN PRN Reason: Pain (Scale Score 1-3) Last Admin: 12/25/21 14:26 Dose: 650 mg Documented by: Acetaminophen (Acetaminophen 325 Mg Tablet) 650 mg PO Q6H PRN PRN Reason: Headache/Pain Mild Scale (1-3) Al Hydroxide/Mg Hydroxide (Magnesium Hydrox/Alum Hydrox 30 Ml Oral.Susp) 30 ml PO Q6H PRN PRN Reason: Heartburn/Nausea Last Admin: 12/16/21 14:54 Dose: 30 ml Documented by: Albuterol Sulfate (Albuterol Sulfate 90 Mcg 8 Gm Inhaler) 2 puff INHALE Q6H PRN PRN Reason: Shortness Of Breath Last Admin: 12/24/21 21:33 Dose: 2 puff Documented by: Amlodipine Besylate (Amlodipine Besylate 10 Mg Tablet) 10 mg PO DAILY [facility]; Protocol Last Admin: 12/26/21 08:58 Dose: 10 mg Documented by: Artificial Tears (Artificial Tears 15 Ml Drops) 1 drop EYE-BOTH Q1H PRN PRN Reason: Dry Eye(S) Docusate Sodium (Docusate Sodium 100 Mg Capsule) 100 mg PO BID PRN PRN Reason: Constipation Last Admin: 12/23/21 12:44 Dose: 100 mg Documented by: Finasteride (Finasteride 5 Mg Tablet) 5 mg PO DAILY [facility] Last Admin: 12/26/21 08:58 Dose: 5 mg Documented by: Gabapentin (Gabapentin 400 Mg Capsule) 400 mg PO TID [facility] Last Admin: 12/26/21 13:40 Dose: 400 mg Documented by: Hydrochlorothiazide (Hydrochlorothiazide 12.5 Mg Tablet) 12.5 mg PO DAILY [facility]; Protocol Last Admin: 12/26/21 08:58 Dose: 12.5 mg Documented by: Hydrocortisone (Hydrocortisone 1 % Cream 28.35 Gm Tube) 1 appl TOPICAL BID [facility]; Protocol Last Admin: 12/26/21 08:59 Dose: Not Given Documented by: Hydroxyzine HCl (Hydroxyzine Hcl 25 Mg Tablet) 25 mg PO BEDTIME PRN PRN Reason: Anxiety Last Admin: 12/18/21 03:17 Dose: 25 mg Documented by: Ibuprofen (Ibuprofen 400 Mg Tablet) 400 mg PO Q6H PRN PRN Reason: Pain, Moderate (Pain Scale 4-6 Last Admin: 12/26/21 08:58 Dose: 400 mg Documented by: Lamotrigine (Lamotrigine 100 Mg Tablet) 200 mg PO BID [facility] Last Admin: 12/26/21 08:58 Dose: 200 mg Documented by: Latanoprost (Latanoprost 0.005 % Ophth No 2.5 Ml Drops) 1 drop EYE-BOTH BEDTIME [facility] Last Admin: 12/25/21 21:31 Dose: 1 drop Documented by: Lidocaine (Lidocaine 4 % Patch Adh..Patch) 1 patch TRANSDERMA DAILY [facility]; Protocol Last Admin: 12/26/21 08:58 Dose: Not Given Documented by: Lisinopril (Lisinopril 40 Mg Tablet) 40 mg PO DAILY [facility]; Protocol Last Admin: 12/26/21 08:58 Dose: 40 mg Documented by: Lorazepam (Lorazepam 0.5 Mg Tablet) 0.5 mg PO Q6H PRN PRN Reason: anxiety/restlessness Last Admin: 12/26/21 13:47 Dose: 0.5 mg Documented by: Magnesium Hydroxide (Milk Of Magnesia 30 Ml Oral.Susp) 30 ml PO Q72H PRN PRN Reason: Constipation Last Admin: 12/12/21 10:20 Dose: 30 ml Documented by: Magnesium Hydroxide (Milk Of Magnesia 30 Ml Oral.Susp) 30 ml PO DAILY PRN PRN Reason: Constipation Melatonin (Melatonin 3 Mg Tablet) 6 mg PO BEDTIME [facility] Last Admin: 12/25/21 21:28 Dose: 6 mg Documented by: Multivitamins/Vitamin C (Multivitamin Tablet) 1 tab PO DAILY [facility] Last Admin: 12/26/21 08:58 Dose: 1 tab Documented by: Nortriptyline HCl (Nortriptyline Hcl 25 Mg Capsule) 75 mg PO BEDTIME [facility] Last Admin: 12/25/21 21:26 Dose: 75 mg Documented by: Nystatin (Nystatin Cream 15 Gm Tube) 1 appl TOPICAL BID [facility]; Protocol Last Admin: 12/26/21 08:59 Dose: Not Given Documented by: Polyethylene Glycol (Polyethylene Glycol 3350 17 Gm Powd.Pack) 17 gm PO DAILY PRN PRN Reason: Constipation Last Admin: 12/22/21 21:39 Dose: 17 gm Documented by: Polyethylene Glycol (Polyethylene Glycol 3350 17 Gm Powd.Pack) 17 gm PO DAILY@1600 [facility] Last Admin: 12/25/21 17:02 Dose: 17 gm Documented by: Pramipexole Dihydrochloride (Pramipexole Di-Hcl 0.125 Mg Tablet) 0.125 mg PO TID [facility] Last Admin: 12/26/21 13:40 Dose: 0.125 mg Documented by: Psyllium Hydrophilic Mucilloid (Psyllium Seed 3.4 Gm Powd.Pack) 3.4 gm PO DAILY [facility] Last Admin: 12/26/21 13:21 Dose: Not Given Documented by: Quetiapine Fumarate (Quetiapine Fumarate 25 Mg Tablet) 25 mg PO BID PRN PRN Reason: Anxiety Last Admin: 12/21/21 12:23 Dose: 25 mg Documented by: Quetiapine Fumarate (Quetiapine Fumarate 50 Mg Tablet) 50 mg PO BEDTIME [facility] Last Admin: 12/25/21 21:27 Dose: 50 mg Documented by: Quetiapine Fumarate (Quetiapine Fumarate 25 Mg Tablet) 25 mg PO DAILY@1300 [facility] Last Admin: 12/26/21 13:40 Dose: 25 mg Documented by: Trazodone HCl (Trazodone Hcl 50 Mg Tablet) 50 mg PO BEDTIME PRN PRN Reason: Insomnia Last Admin: 12/21/21 01:14 Dose: 50 mg Documented by: Trazodone HCl (Trazodone Hcl 100 Mg Tablet) 200 mg PO BEDTIME [facility] Last Admin: 12/25/21 21:25 Dose: 200 mg Documented by: Vitamin D (Cholecalciferol (Vitamin D3) 10 Mcg Tablet) 20 mcg PO DAILY [facility] Last Admin: 12/26/21 08:58 Dose: 20 mcg Documented by: Allergies Allergies Allergy/AdvReac Type Severity Reaction Status Date / Time fentanyl [FENTANYL] Allergy Intermediate unknown Verified 05/22/21 11:43 Assessment & Plan Assessment & Plan (1) Major depressive disorder, recurrent severe without psychotic features: Status: Acute Code(s): F33.2 - Major depressive disorder, recurrent severe without psychotic features Assessment and Plan: stop trintellix cont nortrip seroquel ck re 1sponse check for si limited coping encourage alt way to look and cope with things encourage aftercare IT grp (2) Cognitive and neurobehavioral dysfunction following brain injury: Status: Acute Code(s): G31.89 - Other specified degenerative diseases of nervous system; F09 - Unspecified mental disorder due to known physiological condition; S06.9X9S - Unspecified intracranial injury with loss of consciousness of unspecified duration, sequela Assessment and Plan: Thegabapentin lamictal (3) HTN (hypertension): Status: Acute Code(s): I10 - Essential (primary) hypertension Plan Middle-aged male with a long history of mood symptoms with several admissions into the hospital for suicidal ideation. He also carries a diagnosis of TBI, historically he used to be highly functional but at this moment his wheelchair bounded and very angry at times. Plan 1. Continue same medications. 2. Nortriptyline level on a subtherapeutic level we will titrated accordingly, w increase Pamelor up to 75 mg 3. Gather collateral information. 4. Discontinue Trintellix I spent minutes with the patient and/or on the patient floor today, greater than?50% of which was spent counseling/coordinating care. Reason for contiued inpatient stay Substantial Risk for: inability to function, rapid decompensation and med/psych decompensation
[2021-12-26] MEDS: polyethylene glycoL 3350 17 GM POWD.PACK PO (19:55)
[2021-12-26 20:26] VITALS: BP 119/61; PULSE 88; RESP 19; TEMP 36.6; O2SAT 95
[2021-12-26] MEDS: Nortriptyline HCl 25 MG CAPSULE 75 MG PO (21:10)
[2021-12-26] MEDS: QUEtiapine Fumarate 50 MG TABLET PO (21:11)
[2021-12-26] MEDS: Melatonin 3 MG TABLET 6 MG PO (21:11)
[2021-12-26] MEDS: Nystatin Cream 15 GM TUBE 1 APPL TOPICAL (21:16)
[2021-12-26] MEDS: Latanoprost 0.005 % Ophth Sol 2.5 ML DROPS 1 DROP EYE-BOTH (21:16)
[2021-12-26] MEDS: Hydrocortisone 1 % Cream 28.35 GM TUBE 1 APPL TOPICAL (21:16)
[2021-12-26] MEDS: traZODone HCL 100 MG TABLET 200 MG PO (21:22)
[2021-12-27 06:00] VITALS: BP 142/77; PULSE 73; TEMP 36.4
[2021-12-27] MEDS: Cholecalciferol (Vitamin D3) 10 MCG TABLET 20 MCG PO (08:19)
[2021-12-27] MEDS: lisinopriL 40 MG TABLET PO (08:20)
[2021-12-27] MEDS: Pramipexole Di-HCL 0.125 MG TABLET PO ×3 (08:20→21:07)
[2021-12-27] MEDS: Multivitamin TABLET 1 TAB PO (08:20)
[2021-12-27] MEDS: Gabapentin 400 MG CAPSULE PO ×3 (08:20→21:07)
[2021-12-27] MEDS: lamoTRIgine 100 MG TABLET 200 MG PO ×2 (08:20→21:08)
[2021-12-27] MEDS: hydroCHLOROthiazide 12.5 MG TABLET PO (08:20)
[2021-12-27] MEDS: Finasteride 5 MG TABLET PO (08:20)
[2021-12-27] MEDS: amLODIPine Besylate 10 MG TABLET PO (08:20)
[2021-12-27] MEDS: Ibuprofen 400 MG TABLET PO (08:25)
[2021-12-27] MEDS: QUEtiapine Fumarate 25 MG TABLET PO ×2 (13:02)
--- NOTE | 2021-12-27 14:24 | P.PNPSI_ITS ---
Subjective Subjective Date of Service: 12/27/21 Reason For Visit: SI Subjective Notes: Conditional Voluntary Interim History: The nursing staff reported the patient has been weeping and crying, very upset with the staff since the episode of yesterday that he nearly fall and the staff reported that probably he was trying to let himslef fall in a manipulative way. Today on interview, he was dysphoric and he admitted that he has anger has worsened it. He is frustrated that he has limited control. Mental Status Exam Mental Status Exam Patient Appearance: Well Grooomed and Appropriate Patient Orientation: Person and Situation Level of Consciousness: Awake Patient Behavior: Cooperative Mood Description: Constricted Affect Description: Constricted and Depressed Patient Cognition Impaired: No Ability to Follow Directions: Good Speech Pattern: Clear Memory Description: Intact Hallucinations: None Delusions: Not Present Judgement: Fair Diagnostics Vital Signs (24Hr): Vital Signs - 24 hr 12/26/21 20:26 12/27/21 06:00 Temperature 97.8 F 97.5 F Pulse Rate 88 73 Respiratory Rate 19 Blood Pressure 119/61 142/77 H Pulse Oximetry 95 BMI result Body Mass Index 31.4 Labs Results: 12/09/21 19:15 12/09/21 19:15 Medications Medications Current Medications Acetaminophen (Acetaminophen 325 Mg Tablet) 650 mg PO Q6H PRN PRN Reason: Pain (Scale Score 1-3) Last Admin: 12/25/21 14:26 Dose: 650 mg Documented by: Acetaminophen (Acetaminophen 325 Mg Tablet) 650 mg PO Q6H PRN PRN Reason: Headache/Pain Mild Scale (1-3) Al Hydroxide/Mg Hydroxide (Magnesium Hydrox/Alum Hydrox 30 Ml Oral.Susp) 30 ml PO Q6H PRN PRN Reason: Heartburn/Nausea Last Admin: 12/16/21 14:54 Dose: 30 ml Documented by: Albuterol Sulfate (Albuterol Sulfate 90 Mcg 8 Gm Inhaler) 2 puff INHALE Q6H PRN PRN Reason: Shortness Of Breath Last Admin: 12/24/21 21:33 Dose: 2 puff Documented by: Amlodipine Besylate (Amlodipine Besylate 10 Mg Tablet) 10 mg PO DAILY [facility]; Protocol Last Admin: 12/27/21 08:20 Dose: 10 mg Documented by: Artificial Tears (Artificial Tears 15 Ml Drops) 1 drop EYE-BOTH Q1H PRN PRN Reason: Dry Eye(S) Docusate Sodium (Docusate Sodium 100 Mg Capsule) 100 mg PO BID PRN PRN Reason: Constipation Last Admin: 12/23/21 12:44 Dose: 100 mg Documented by: Finasteride (Finasteride 5 Mg Tablet) 5 mg PO DAILY [facility] Last Admin: 12/27/21 08:20 Dose: 5 mg Documented by: Gabapentin (Gabapentin 400 Mg Capsule) 400 mg PO TID [facility] Last Admin: 12/27/21 08:20 Dose: 400 mg Documented by: Hydrochlorothiazide (Hydrochlorothiazide 12.5 Mg Tablet) 12.5 mg PO DAILY [facility]; Protocol Last Admin: 12/27/21 08:20 Dose: 12.5 mg Documented by: Hydrocortisone (Hydrocortisone 1 % Cream 28.35 Gm Tube) 1 appl TOPICAL BID [facility]; Protocol Last Admin: 12/27/21 09:31 Dose: Not Given Documented by: Hydroxyzine HCl (Hydroxyzine Hcl 25 Mg Tablet) 25 mg PO BEDTIME PRN PRN Reason: Anxiety Last Admin: 12/18/21 03:17 Dose: 25 mg Documented by: Ibuprofen (Ibuprofen 400 Mg Tablet) 400 mg PO Q6H PRN PRN Reason: Pain, Moderate (Pain Scale 4-6 Last Admin: 12/27/21 08:25 Dose: 400 mg Documented by: Lamotrigine (Lamotrigine 100 Mg Tablet) 200 mg PO BID [facility] Last Admin: 12/27/21 08:20 Dose: 200 mg Documented by: Latanoprost (Latanoprost 0.005 % Ophth No 2.5 Ml Drops) 1 drop EYE-BOTH BED TIME [facility] Last Admin: 12/26/21 21:16 Dose: 1 drop Documented by: Lidocaine (Lidocaine 4 % Patch Adh..Patch) 1 patch TRANSDERMA DAILY [facility]; Protocol Last Admin: 12/27/21 09:31 Dose: Not Given Documented by: Lisinopril (Lisinopril 40 Mg Tablet) 40 mg PO DAILY [facility]; Protocol Last Admin: 12/27/21 08:20 Dose: 40 mg Documented by: Lorazepam (Lorazepam 0.5 Mg Tablet) 0.5 mg PO Q6H PRN PRN Reason: anxiety/restlessness Last Admin: 12/26/21 13:47 Dose: 0.5 mg Documented by: Magnesium Hydroxide (Milk Of Magnesia 30 Ml Oral.Susp) 30 ml PO Q72H PRN PRN Reason: Constipation Last Admin: 12/12/21 10:20 Dose: 30 ml Documented by: Magnesium Hydroxide (Milk Of Magnesia 30 Ml Oral.Susp) 30 ml PO DAILY PRN PRN Reason: Constipation Melatonin (Melatonin 3 Mg Tablet) 6 mg PO BEDTIME [facility] Last Admin: 12/26/21 21:11 Dose: 6 mg Documented by: Multivitamins/Vitamin C (Multivitamin Tablet) 1 tab PO DAILY [facility] Last Admin: 12/27/21 08:20 Dose: 1 tab Documented by: Nortriptyline HCl (Nortriptyline Hcl 25 Mg Capsule) 75 mg PO BEDTIME [facility] Last Admin: 12/26/21 21:10 Dose: 75 mg Documented by: Nystatin (Nystatin Cream 15 Gm Tube) 1 appl TOPICAL BID [facility]; Protocol Last Admin: 12/27/21 10:02 Dose: Not Given Documented by: Polyethylene Glycol (Polyethylene Glycol 3350 17 Gm Powd.Pack) 17 gm PO DAILY PRN PRN Reason: Constipation Last Admin: 12/22/21 21:39 Dose: 17 gm Documented by: Polyethylene Glycol (Polyethylene Glycol 3350 17 Gm Powd.Pack) 17 gm PO DAILY@1600 [facility] Last Admin: 12/26/21 19:55 Dose: 17 gm Documented by: Pramipexole Dihydrochloride (Pramipexole Di-Hcl 0.125 Mg Tablet) 0.125 mg PO TID [facility] Last Admin: 12/27/21 08:20 Dose: 0.125 mg Documented by: Psyllium Hydrophilic Mucilloid (Psyllium Seed 3.4 Gm Powd.Pack) 3.4 gm PO DAILY [facility] Last Admin: 12/27/21 08:20 Dose: 3.4 gm Documented by: Quetiapine Fumarate (Quetiapine Fumarate 25 Mg Tablet) 25 mg PO BID PRN PRN Reason: Anxiety Last Admin: 12/27/21 13:02 Dose: 25 mg Documented by: Quetiapine Fumarate (Quetiapine Fumarate 50 Mg Tablet) 50 mg PO BEDTIME [facility] Last Admin: 12/26/21 21:11 Dose: 50 mg Documented by: Quetiapine Fumarate (Quetiapine Fumarate 25 Mg Tablet) 25 mg PO DAILY@1300 [facility] Last Admin: 12/27/21 13:02 Dose: 25 mg Documented by: Trazodone HCl (Trazodone Hcl 50 Mg Tablet) 50 mg PO BEDTIME PRN PRN Reason: Insomnia Last Admin: 12/21/21 01:14 Dose: 50 mg Documented by: Trazodone HCl (Trazodone Hcl 100 Mg Tablet) 200 mg PO BEDTIME [facility] Last Admin: 12/26/21 21:22 Dose: 200 mg Documented by: Vitamin D (Cholecalciferol (Vitamin D3) 10 Mcg Tablet) 20 mcg PO DAILY [facility] Last Admin: 12/27/21 08:19 Dose: 20 mcg Documented by: Allergies Allergies Allergy/AdvReac Type Severity Reaction Status Date / Time fentanyl [FENTANYL] Allergy Intermediate unknown Verified 05/22/21 11:43 Assessment & Plan Assessment & Plan (1) Major depressive disorder, recurrent severe without psychotic features: Status: Acute Code(s): F33.2 - Major depressive disorder, recurrent severe without psychotic features Assessment and Plan: stop trintellix cont nortrip seroquel ck re 1sponse check for si limited coping encourage alt way to look and cope with things encourage aftercare IT grp (2) Cognitive and neurobehavioral dysfunction following brain injury: Status: Acute Code(s): G31.89 - Other specified degenerative diseases of nervous system; F09 - Unspecified mental disorder due to known physiological condition; S06.9X9S - Unspecified intracranial injury with loss of consciousness of unspecified duration, sequela Assessment and Plan: Thegabapentin lamictal (3) HTN (hypertension): Status: Acute Code(s): I10 - Essential (primary) hypertension Plan Middle-aged male with a long history of mood symptoms with several admissions into the hospital for suicidal ideation. He also carries a diagnosis of TBI, historically he used to be highly functional but at this moment his wh eelchair bounded and very angry at times. Plan 1. Continue same medications. 2. Nortriptyline level on a subtherapeutic level we will titrated accordingly, w increase Pamelor up to 100 mg, starting tonight. 3. Gather collateral information. 4. Discontinue Trintellix I spent minutes with the patient and/or on the patient floor today, greater than?50% of which was spent counseling/coordinating care. Reason for contiued inpatient stay Substantial Risk for: harm to self, inability to function, rapid decompensation and med/psych decompensation
[2021-12-27] MEDS: Acetaminophen 325 MG TABLET 650 MG PO (16:01)
[2021-12-27] MEDS: polyethylene glycoL 3350 17 GM POWD.PACK PO (16:02)
[2021-12-27 18:00] VITALS: BP 137/72; PULSE 68; RESP 20; TEMP 36.2; O2SAT 97
[2021-12-27] MEDS: Nortriptyline HCl 25 MG CAPSULE 100 MG PO (21:06)
[2021-12-27] MEDS: QUEtiapine Fumarate 50 MG TABLET PO (21:06)
[2021-12-27] MEDS: traZODone HCL 100 MG TABLET 200 MG PO (21:07)
[2021-12-27] MEDS: Hydrocortisone 1 % Cream 28.35 GM TUBE 1 APPL TOPICAL (21:08)
[2021-12-27] MEDS: Melatonin 3 MG TABLET 6 MG PO (21:08)
[2021-12-27] MEDS: Latanoprost 0.005 % Ophth Sol 2.5 ML DROPS 1 DROP EYE-BOTH (21:08)
[2021-12-27] MEDS: Nystatin Cream 15 GM TUBE 1 APPL TOPICAL (21:08)
[2021-12-27] MEDS: LORazepam 0.5 MG TABLET PO (21:13)
[2021-12-28] MEDS: traZODone HCL 50 MG TABLET PO (02:10)
[2021-12-28 06:00] VITALS: BP 110/75; PULSE 86; RESP 14; TEMP 36.3; O2SAT 98
[2021-12-28] MEDS: amLODIPine Besylate 10 MG TABLET PO (09:03)
[2021-12-28] MEDS: Cholecalciferol (Vitamin D3) 10 MCG TABLET 20 MCG PO (09:03)
[2021-12-28] MEDS: lisinopriL 40 MG TABLET PO (09:03)
[2021-12-28] MEDS: Gabapentin 400 MG CAPSULE PO ×3 (09:03→21:05)
[2021-12-28] MEDS: Multivitamin TABLET 1 TAB PO (09:03)
[2021-12-28] MEDS: hydroCHLOROthiazide 12.5 MG TABLET PO (09:04)
[2021-12-28] MEDS: Finasteride 5 MG TABLET PO (09:04)
[2021-12-28] MEDS: Pramipexole Di-HCL 0.125 MG TABLET PO ×3 (09:04→21:05)
[2021-12-28] MEDS: lamoTRIgine 100 MG TABLET 200 MG PO ×2 (09:04→21:05)
[2021-12-28] MEDS: Ibuprofen 400 MG TABLET PO (09:14)
[2021-12-28 10:41] LABS: Nortriptyline 36 mcg/L (50-150)
[2021-12-28] MEDS: QUEtiapine Fumarate 25 MG TABLET PO (12:32)
--- NOTE | 2021-12-28 13:34 | P.PNPSI_ITS ---
Subjective Subjective Date of Service: 12/28/21 Reason For Visit: SI Interim History: Patient seen. Discussed with nursing. He says he is feeling lonesome. He says he is not having a good day. He cries a lot. He says his anxiety is an 8. Asks to make sure the [place] doesn't drop/time out from his MAR. He says he won't kill self here because he has no way to but thinks he may kill himself if he leaves. Review of Systems Review of Systems negative except HPI Yes all other systems are reviewed and are negative Mental Status Exam Mental Status Exam Patient Appearance: Well Grooomed and Appropriate Patient Orientation: Person and Situation Level of Consciousness: Awake Patient Behavior: Dependent, Cooperative and Good Eye Contact Mood Description: Constricted, Depressed and Labile Affect Description: Constricted, Depressed and Labile Patient Cognition Impaired: No Ability to Follow Directions: Good Speech Pattern: Clear Memory Description: Intact Hallucinations: None Thought Process: Rumination Thought Content: positive for Circumstantial and positive for Suicidal Ideation Depressive Symptoms: Unhappiness, Thoughts of /Suicide and Low Self Esteem Judgement: Fair Diagnostics Vital Signs (24Hr): Vital Signs - 24 hr 12/28/21 06:00 12/28/21 18:00 Temperature 97.3 F 97.2 F Pulse Rate 86 72 Respiratory Rate 14 20 Blood Pressure 110/75 119/65 Pulse Oximetry 98 96 BMI result Body Mass Index 31.4 Labs Results: 12/09/21 19:15 12/09/21 19:15 Labs: Laboratory Results - last 48 hr 12/23/21 07:58 Nortriptyline 36 L Medications Medications Current Medications Acetaminophen (Acetaminophen 325 Mg Tablet) 650 mg PO Q6H PRN PRN Reason: Pain (Scale Score 1-3) Last Admin: 12/28/21 14:36 Dose: 650 mg Documented by: Acetaminophen (Acetaminophen 325 Mg Tablet) 650 mg PO Q6H PRN PRN Reason: Headache/Pain Mild Scale (1-3) Al Hydroxide/Mg Hydroxide (Magnesium Hydrox/Alum Hydrox 30 Ml Oral.Susp) 30 ml PO Q6H PRN PRN Reason: Heartburn/Nausea Last Admin: 12/16/21 14:54 Dose: 30 ml Documented by: Albuterol Sulfate (Albuterol Sulfate 90 Mcg 8 Gm Inhaler) 2 puff INHALE Q6H PRN PRN Reason: Shortness Of Breath Last Admin: 12/24/21 21:33 Dose: 2 puff Documented by: Amlodipine Besylate (Amlodipine Besylate 10 Mg Tablet) 10 mg PO DAILY [facility]; Protocol Last Admin: 12/28/21 09:03 Dose: 10 mg Documented by: Artificial Tears (Artificial Tears 15 Ml Drops) 1 drop EYE-BOTH Q1H PRN PRN Reason: Dry Eye(S) Docusate Sodium (Docusate Sodium 100 Mg Capsule) 100 mg PO BID PRN PRN Reason: Constipation Last Admin: 12/23/21 12:44 Dose: 100 mg Documented by: Finasteride (Finasteride 5 Mg Tablet) 5 mg PO DAILY [facility] Last Admin: 12/28/21 09:04 Dose: 5 mg Documented by: Gabapentin (Gabapentin 400 Mg Capsule) 400 mg PO TID [facility] Last Admin: 12/28/21 14:32 Dose: 400 mg Documented by: Hydrochlorothiazide (Hydrochlorothiazide 12.5 Mg Tablet) 12.5 mg PO DAILY [facility]; Protocol Last Admin: 12/28/21 09:04 Dose: 12.5 mg Documented by: Hydrocortisone (Hydrocortisone 1 % Cream 28.35 Gm Tube) 1 appl TOPICAL BID [facility]; Protocol Last Admin: 12/28/21 09:02 Dose: Not Given Documented by: Hydroxyzine HCl (Hydroxyzine Hcl 25 Mg Tablet) 25 mg PO BEDTIME PRN PRN Reason: Anxiety Last Admin: 12/18/21 03:17 Dose: 25 mg Documented by: Ibuprofen (Ibuprofen 400 Mg Tablet) 400 mg PO Q6H PRN PRN Reason: Pain, Moderate (Pain Scale 4-6 Last Admin: 12/28/21 09:14 Dose: 400 mg Documented by: Lamotrigine (Lamotrigine 100 Mg Tablet) 200 mg PO BID [facility] Last Admin: 12/28/21 09:04 Dose: 200 mg Documented by: Latanoprost (Latanoprost 0.005 % Ophth No 2.5 Ml Drops) 1 drop EYE-BOTH BEDTIME [facility] Last Admin: 12/27/21 21:08 Dose: 1 drop Documented by: Lidocaine (Lidocaine 4 % Patch Adh..Patch) 1 patch TRANSDERMA DAILY [facility]; Protocol Last Admin: 12/28/21 09:02 Dose: Not Given Documented by: Lisinopril (Lisinopril 40 Mg Tablet) 40 mg PO DAILY [facility]; Protocol Last Admin: 12/28/21 09:03 Dose: 40 mg Documented by: Lorazepam (Lorazepam 0.5 Mg Tablet) 0.5 mg PO Q6H PRN PRN Reason: Anxiety Last Admin: 12/28/21 14:36 Dose: 0.5 mg Documented by: Magnesium Hydroxide (Milk Of Magnesia 30 Ml Oral.Susp) 30 ml PO Q72H PRN PRN Reason: Constipation Last Admin: 12/12/21 10:20 Dose: 30 ml Documented by: Magnesium Hydroxide (Milk Of Magnesia 30 Ml Oral.Susp) 30 ml PO DAILY PRN PRN Reason: Constipation Melatonin (Melatonin 3 Mg Tablet) 6 mg PO BEDTIME [facility] Last Admin: 12/27/21 21:08 Dose: 6 mg Documented by: Multivitamins/Vitamin C (Multivitamin Tablet) 1 tab PO DAILY [facility] Last Admin: 12/28/21 09:03 Dose: 1 tab Documented by: Nortriptyline HCl (Nortriptyline Hcl 25 Mg Capsule) 100 mg PO BEDTIME [facility] Last Admin: 12/27/21 21:06 Dose: 100 mg Documented by: Nystatin (Nystatin Cream 15 Gm Tube) 1 appl TOPICAL BID [facility]; Protocol Last Admin: 12/28/21 09:03 Dose: Not Given Documented by: Polyethylene Glycol (Polyethylene Glycol 3350 17 Gm Powd.Pack) 17 gm PO DAILY PRN PRN Reason: Constipation Last Admin: 12/22/21 21:39 Dose: 17 gm Documented by: Polyethylene Glycol (Polyethylene Glycol 3350 17 Gm Powd.Pack) 17 gm PO DAILY@1600 [facility] Last Admin: 12/28/21 16:07 Dose: 17 gm Documented by: Pramipexole Dihydrochloride (Pramipexole Di-Hcl 0.125 Mg Tablet) 0.125 mg PO TID [facility] Last Admin: 12/28/21 14:32 Dose: 0.125 mg Documented by: Psyllium Hydrophilic Mucilloid (Psyllium Seed 3.4 Gm Powd.Pack) 3.4 gm PO DAILY [facility] Last Admin: 12/28/21 08:58 Dose: 3.4 gm Documented by: Quetiapine Fumarate (Quetiapine Fumarate 25 Mg Tablet) 25 mg PO BID PRN PRN Reason: Anxiety Last Admin: 12/27/21 13:02 Dose: 25 mg Documented by: Quetiapine Fumarate (Quetiapine Fumarate 50 Mg Tablet) 50 mg PO BEDTIME [facility] Last Admin: 12/27/21 21:06 Dose: 50 mg Documented by: Quetiapine Fumarate (Quetiapine Fumarate 25 Mg Tablet) 25 mg PO DAILY@1300 [facility] Last Admin: 12/28/21 12:32 Dose: 25 mg Documented by: Trazodone HCl (Trazodone Hcl 50 Mg Tablet) 50 mg PO BEDTIME PRN PRN Reason: Insomnia Last Admin: 12/28/21 02:10 Dose: 50 mg Documented by: Trazodone HCl (Trazodone Hcl 100 Mg Tablet) 200 mg PO BEDTIME [facility] Last Admin: 12/27/21 21:07 Dose: 200 mg Documented by: Vitamin D (Cholecalciferol (Vitamin D3) 10 Mcg Tablet) 20 mcg PO DAILY [facility] Last Admin: 12/28/21 09:03 Dose: 20 mcg Documented by: Allergies Allergies Allergy/AdvReac Type Severity Reaction Status Date / Time fentanyl [FENTANYL] Allergy Intermediate unknown Verified 05/22/21 11:43 Assessment & Plan Assessment & Plan (1) Major depressive disorder, recurrent severe without psychotic features: Status: Acute Code(s): F33.2 - Major depressive disorder, recurrent severe without psychotic features Assessment and Plan: stop trintellix cont nortrip seroquel ck re 1sponse check for si limited coping encourage alt way to look and cope with things encourage aftercare IT grp (2) Cognitive and neurobehavioral dysfunction following brain injury: Status: Acute Code(s): G31.89 - Other specified degenerative diseases of nervous system; F09 - Unspecified mental disorder due to known physiological condition; S06.9X9S - Unspecified intracranial injury with loss of consciousness of unspecified duration, sequela Assessment and Plan: Thegabapentin lamictal (3) HTN (hypertension): Status: Acute Code(s): I10 - Essential (primary) hypertension Plan Middle-aged male with a long history of mood symptoms with several admissions into the hospital for suicidal ideation. He also carries a diagnosis of TBI, historically he used to be highly functional but at this moment his wheelchair bounded and very angry at times. Plan 1. Continue same medications. 2. Pamelor 100 mg HS 3. Gather collateral information. 4. Discontinue Trintellix I spent minutes with the patient and/or on the patient floor today, greater than?50% of which was spent counseling/coordinating care. Patient educated on: therapeutic strategies (Discussed his depressive reactions and how they haven't helped him. Did some motivational interviewing) Reason for contiued inpatient stay Substantial Risk for: harm to self and inability to function
[2021-12-28] MEDS: Acetaminophen 325 MG TABLET 650 MG PO (14:36)
[2021-12-28] MEDS: LORazepam 0.5 MG TABLET PO ×2 (14:36→21:12)
[2021-12-28] MEDS: polyethylene glycoL 3350 17 GM POWD.PACK PO (16:07)
[2021-12-28 18:00] VITALS: BP 119/65; PULSE 72; RESP 20; TEMP 36.2; O2SAT 96
[2021-12-28] MEDS: traZODone HCL 100 MG TABLET 200 MG PO (21:04)
[2021-12-28] MEDS: Nortriptyline HCl 25 MG CAPSULE 100 MG PO (21:04)
[2021-12-28] MEDS: Nystatin Cream 15 GM TUBE 1 APPL TOPICAL (21:05)
[2021-12-28] MEDS: Melatonin 3 MG TABLET 6 MG PO (21:05)
[2021-12-28] MEDS: QUEtiapine Fumarate 50 MG TABLET PO (21:05)
[2021-12-28] MEDS: Latanoprost 0.005 % Ophth Sol 2.5 ML DROPS 1 DROP EYE-BOTH (21:05)
[2021-12-28] MEDS: Hydrocortisone 1 % Cream 28.35 GM TUBE 1 APPL TOPICAL (21:06)
[2021-12-29 06:00] VITALS: BP 142/75; PULSE 74; RESP 16; TEMP 36.4; O2SAT 96
[2021-12-29] MEDS: Acetaminophen 325 MG TABLET 650 MG PO (06:39)
[2021-12-29] MEDS: lamoTRIgine 100 MG TABLET 200 MG PO ×2 (08:18→21:24)
[2021-12-29] MEDS: hydroCHLOROthiazide 12.5 MG TABLET PO (08:18)
[2021-12-29] MEDS: lisinopriL 40 MG TABLET PO (08:18)
[2021-12-29] MEDS: amLODIPine Besylate 10 MG TABLET PO (08:18)
[2021-12-29] MEDS: Gabapentin 400 MG CAPSULE PO ×3 (08:18→21:26)
[2021-12-29] MEDS: Cholecalciferol (Vitamin D3) 10 MCG TABLET 20 MCG PO (08:18)
[2021-12-29] MEDS: Pramipexole Di-HCL 0.125 MG TABLET PO ×3 (08:19→21:24)
[2021-12-29] MEDS: Multivitamin TABLET 1 TAB PO (08:19)
[2021-12-29] MEDS: Finasteride 5 MG TABLET PO (08:19)
[2021-12-29] MEDS: Nystatin Cream 15 GM TUBE 1 APPL TOPICAL ×2 (10:21→21:23)
[2021-12-29] MEDS: Hydrocortisone 1 % Cream 28.35 GM TUBE 1 APPL TOPICAL ×2 (10:21→21:23)
[2021-12-29] MEDS: QUEtiapine Fumarate 25 MG TABLET PO (14:15)
[2021-12-29] MEDS: Ibuprofen 400 MG TABLET PO ×2 (14:15→21:25)
[2021-12-29] MEDS: polyethylene glycoL 3350 17 GM POWD.PACK PO (17:14)
--- NOTE | 2021-12-29 17:50 | HO.PSYCHPN ---
Subjective Subjective Date of Service: 12/29/21 Reason For Visit: SI Interim History: Patient seen. Discussed with nursing. Patient continues to exhibit negative cognitions and depressive. he presents with helplessness and hopelessness and vague and circumstantial statements of SI. He says I am just waiting for the next wave of tears and I just need someone to show me the way [so I am not depressed] . Denies AVH. Review of Systems Review of Systems negative except HPI Yes all other systems are reviewed and are negative Mental Status Exam Mental Status Exam Patient Appearance: Well Grooomed and Appropriate Patient Orientation: Person and Situation Level of Consciousness: Awake Patient Behavior: Dependent, Cooperative and Good Eye Contact Mood Description: Constricted, Depressed and Labile Affect Description: Constricted, Depressed and Labile Patient Cognition Impaired: No Ability to Follow Directions: Good Speech Pattern: Clear Memory Description: Intact Diagnostics Vital Signs (24Hr): Vital Signs - 24 hr 12/28/21 18:00 12/29/21 06:00 Temperature 97.2 F 97.5 F Pulse Rate 72 74 Respiratory Rate 20 16 Blood Pressure 119/65 142/75 H Pulse Oximetry 96 96 BMI result Body Mass Index 31.4 Labs Results: 12/09/21 19:15 12/09/21 19:15 Labs: Laboratory Results - last 48 hr 12/23/21 07:58 Nortriptyline 36 L Medications Medications Current Medications Acetaminophen (Acetaminophen 325 Mg Tablet) 650 mg PO Q6H PRN PRN Reason: Pain (Scale Score 1-3) Last Admin: 12/29/21 06:39 Dose: 650 mg Documented by: Acetaminophen (Acetaminophen 325 Mg Tablet) 650 mg PO Q6H PRN PRN Reason: Headache/Pain Mild Scale (1-3) Al Hydroxide/Mg Hydroxide (Magnesium Hydrox/Alum Hydrox 30 Ml Oral.Susp) 30 ml PO Q6H PRN PRN Reason: Heartburn/Nausea Last Admin: 12/16/21 14:54 Dose: 30 ml Documented by: Albuterol Sulfate (Albuterol Sulfate 90 Mcg 8 Gm Inhaler) 2 puff INHALE Q6H PRN PRN Reason: Shortness Of Breath Last Admin: 12/24/21 21:33 Dose: 2 puff Documented by: Amlodipine Besylate (Amlodipine Besylate 10 Mg Tablet) 10 mg PO DAILY [facility]; Protocol Last Admin: 12/29/21 08:18 Dose: 10 mg Documented by: Artificial Tears (Artificial Tears 15 Ml Drops) 1 drop EYE-BOTH Q1H PRN PRN Reason: Dry Eye(S) Docusate Sodium (Docusate Sodium 100 Mg Capsule) 100 mg PO BID PRN PRN Reason: Constipation Last Admin: 12/23/21 12:44 Dose: 100 mg Documented by: Finasteride (Finasteride 5 Mg Tablet) 5 mg PO DAILY [facility] Last Admin: 12/29/21 08:19 Dose: 5 mg Documented by: Gabapentin (Gabapentin 400 Mg Capsule) 400 mg PO TID [facility] Last Admin: 12/29/21 14:15 Dose: 400 mg Documented by: Hydrochlorothiazide (Hydrochlorothiazide 12.5 Mg Tablet) 12.5 mg PO DAILY [facility]; Protocol Last Admin: 12/29/21 08:18 Dose: 12.5 mg Documented by: Hydrocortisone (Hydrocortisone 1 % Cream 28.35 Gm Tube) 1 appl TOPICAL BID [facility]; Protocol Last Admin: 12/29/21 10:21 Dose: 1 appl Documented by: Hydroxyzine HCl (Hydroxyzine Hcl 25 Mg Tablet) 25 mg PO BEDTIME PRN PRN Reason: Anxiety Last Admin: 12/18/21 03:17 Dose: 25 mg Documented by: Ibuprofen (Ibuprofen 400 Mg Tablet) 400 mg PO Q6H PRN PRN Reason: Pain, Moderate (Pain Scale 4-6 Last Admin: 12/29/21 14:15 Dose: 400 mg Documented by: Lamotrigine (Lamotrigine 100 Mg Tablet) 200 mg PO BID [facility] Last Admin: 12/29/21 08:18 Dose: 200 mg Documented by: Latanoprost (Latanoprost 0.005 % Ophth No 2.5 Ml Drops) 1 drop EYE-BOTH BEDTIME [facility] Last Admin: 12/28/21 21:05 Dose: 1 drop Documented by: Lidocaine (Lidocaine 4 % Patch Adh..Patch) 1 patch TRANSDERMA DAILY [facility]; Protocol Last Admin: 12/29/21 10:17 Dose: Not Given Documented by: Lisinopril (Lisinopril 40 Mg Tablet) 40 mg PO DAILY [facility]; Protocol Last Admin: 12/29/21 08:18 Dose: 40 mg Documented by: Lorazepam (Lorazepam 0.5 Mg Tablet) 0.5 mg PO Q6H PRN PRN Reason: Anxiety Last Admin: 12/28/21 21:12 Dose: 0.5 mg Documented by: Magnesium Hydroxide (Milk Of Magnesia 30 Ml Oral.Susp) 30 ml PO Q72H PRN PRN Reason: Constipation Last Admin: 12/12/21 10:20 Dose: 30 ml Documented by: Magnesium Hydroxide (Milk Of Magnesia 30 Ml Oral.Susp) 30 ml PO DAILY PRN PRN Reason: Constipation Melatonin (Melatonin 3 Mg Tablet) 6 mg PO BEDTIME [facility] Last Admin: 12/28/21 21:05 Dose: 6 mg Documented by: Multivitamins/Vitamin C (Multivitamin Tablet) 1 tab PO DAILY [facility] Last Admin: 12/29/21 08:19 Dose: 1 tab Documented by: Nortriptyline HCl (Nortriptyline Hcl 25 Mg Capsule) 100 mg PO BEDTIME [facility] Last Admin: 12/28/21 21:04 Dose: 100 mg Documented by: Nystatin (Nystatin Cream 15 Gm Tube) 1 appl TOPICAL BID [facility]; Protocol Last Admin: 12/29/21 10:21 Dose: 1 appl Documented by: Polyethylene Glycol (Polyethylene Glycol 3350 17 Gm Powd.Pack) 17 gm PO DAILY PRN PRN Reason: Constipation Last Admin: 12/22/21 21:39 Dose: 17 gm Documented by: Polyethylene Glycol (Polyethylene Glycol 3350 17 Gm Powd.Pack) 17 gm PO DAILY@1600 [facility] Last Admin: 12/29/21 17:14 Dose: 17 gm Documented by: Pramipexole Dihydrochloride (Pramipexole Di-Hcl 0.125 Mg Tablet) 0.125 mg PO TID [facility] Last Admin: 12/29/21 14:15 Dose: 0.125 mg Documented by: Psyllium Hydrophilic Mucilloid (Psyllium Seed 3.4 Gm Powd.Pack) 3.4 gm PO DAILY [facility] Last Admin: 12/29/21 08:18 Dose: 3.4 gm Documented by: Quetiapine Fumarate (Quetiapine Fumarate 25 Mg Tablet) 25 mg PO BID PRN PRN Reason: Anxiety Last Admin: 12/27/21 13:02 Dose: 25 mg Documented by: Quetiapine Fumarate (Quetiapine Fumarate 50 Mg Tablet) 50 mg PO BEDTIME [facility] Last Admin: 12/28/21 21:05 Dose: 50 mg Documented by: Quetiapine Fumarate (Quetiapine Fumarate 25 Mg Tablet) 25 mg PO DAILY@1300 [facility] Last Admin: 12/29/21 14:15 Dose: 25 mg Documented by: Trazodone HCl (Trazodone Hcl 50 Mg Tablet) 50 mg PO BEDTIME PRN PRN Reason: Insomnia Last Admin: 12/28/21 02:10 Dose: 50 mg Documented by: Trazodone HCl (Trazodone Hcl 100 Mg Tablet) 200 mg PO BEDTIME [facility] Last Admin: 12/28/21 21:04 Dose: 200 mg Documented by: Vitamin D (Cholecalciferol (Vitamin D3) 10 Mcg Tablet) 20 mcg PO DAILY [facility] Last Admin: 12/29/21 08:18 Dose: 20 mcg Documented by: Allergies Allergies Allergy/AdvReac Type Severity Reaction Status Date / Time fentanyl [FENTANYL] Allergy Intermediate unknown Verified 05/22/21 11:43 Assessment & Plan Assessment & Plan (1) Major depressive disorder, recurrent severe without psychotic features: Status: Acute Code(s): F33.2 - Major depressive disorder, recurrent severe without psychotic features Assessment and Plan: stop trintellix cont nortrip seroquel ck re 1sponse check for si limited coping encourage alt way to look and cope with things encourage aftercare IT grp (2) Cognitive and neurobehavioral dysfunction following brain injury: Status: Acute Code(s): G31.89 - Other specified degenerative diseases of nervous system; F09 - Unspecified mental disorder due to known physiological condition; S06.9X9S - Unspecified intracranial injury with loss of consciousness of unspecified duration, sequela Assessment and Plan: Thegabapentin lamictal (3) HTN (hypertension): Status: Acute Code(s): I10 - Essential (primary) hypertension Plan Middle-aged male with a long history of mood symptoms with several admissions into the hospital for suicidal ideation. He also carries a diagnosis of TBI, historically he used to be highly functional but at this moment his wheelchair bounded and very angry at times. Plan 1. Continue same medications. 2. Pamelor 100 mg HS 3. Gather collateral information. 4. Discontinue Trintellix I spent minutes with the patient and/or on the patient floor today, greater than?50% of which was spent counseling/coordinating care. Reason for contiued inpatient stay Substantial Risk for: harm to self and inability to function
[2021-12-29 20:19] VITALS: BP 125/71; PULSE 67; RESP 19; TEMP 36.2; O2SAT 95
[2021-12-29] MEDS: Latanoprost 0.005 % Ophth Sol 2.5 ML DROPS 1 DROP EYE-BOTH (21:23)
[2021-12-29] MEDS: Nortriptyline HCl 25 MG CAPSULE 100 MG PO (21:24)
[2021-12-29] MEDS: LORazepam 0.5 MG TABLET PO (21:25)
[2021-12-29] MEDS: traZODone HCL 100 MG TABLET 200 MG PO (21:26)
[2021-12-29] MEDS: QUEtiapine Fumarate 50 MG TABLET PO (21:26)
[2021-12-29] MEDS: Melatonin 3 MG TABLET 6 MG PO (21:26)
[2021-12-30 06:00] VITALS: BP 144/63; PULSE 72; RESP 17; TEMP 36.2; O2SAT 98
[2021-12-30] MEDS: Ibuprofen 400 MG TABLET PO ×2 (06:15→21:59)
[2021-12-30] MEDS: Cholecalciferol (Vitamin D3) 10 MCG TABLET 20 MCG PO (08:15)
[2021-12-30] MEDS: Gabapentin 400 MG CAPSULE PO ×3 (08:15→21:56)
[2021-12-30] MEDS: hydroCHLOROthiazide 12.5 MG TABLET PO (08:15)
[2021-12-30] MEDS: Finasteride 5 MG TABLET PO (08:15)
[2021-12-30] MEDS: Pramipexole Di-HCL 0.125 MG TABLET PO ×3 (08:15→21:56)
[2021-12-30] MEDS: Multivitamin TABLET 1 TAB PO (08:15)
[2021-12-30] MEDS: lisinopriL 40 MG TABLET PO (08:15)
[2021-12-30] MEDS: lamoTRIgine 100 MG TABLET 200 MG PO ×2 (08:15→21:56)
[2021-12-30] MEDS: amLODIPine Besylate 10 MG TABLET PO (08:16)
[2021-12-30] MEDS: Hydrocortisone 1 % Cream 28.35 GM TUBE 1 APPL TOPICAL ×2 (08:16→22:06)
[2021-12-30] MEDS: QUEtiapine Fumarate 25 MG TABLET PO (14:23)
--- NOTE | 2021-12-30 14:42 | HO.PSYCHPN ---
Subjective Subjective Date of Service: 12/30/21 Reason For Visit: SI Subjective Notes: Conditional Voluntary Interim History: the nursing staff reported that the patient has been watching TV all day long, he has minimal participation in groups and the staff has noticed that he is easily angry. On interview, the patient denies new symptoms he states that he is depressed and he cries easily. We discussed at length about his behavior regarding needing more help from staff and that he could probably end up on subacute rehab due to his new limitations. He does not want to go to senior living but I explained him that if his functionality has dropped probably will have to do an application to that level of care. Mental Status Exam Mental Status Exam Patient Appearance: Well Grooomed Patient Orientation: Person and Situation Level of Consciousness: Awake Patient Behavior: Cooperative Mood Description: Depressed Affect Description: Constricted Patient Cognition Impaired: No Ability to Follow Directions: Good Speech Pattern: Appropriate Memory Description: Intact Hallucinations: None Delusions: Not Present Thought Process: Distracted and Linear Thought Content: positive for Obsessional Thoughts, positive for Circumstantial and positive for Poverty of Content Judgement: Fair Diagnostics Vital Signs (24Hr): Vital Signs - 24 hr 12/29/21 20:19 12/30/21 06:00 Temperature 97.1 F 97.1 F Pulse Rate 67 72 Respiratory Rate 19 17 Blood Pressure 125/71 144/63 H Pulse Oximetry 95 98 BMI result Body Mass Index 31.4 Labs Results: 12/09/21 19:15 12/09/21 19:15 Medications Medications Current Medications Acetaminophen (Acetaminophen 325 Mg Tablet) 650 mg PO Q6H PRN PRN Reason: Pain (Scale Score 1-3) Last Admin: 12/29/21 06:39 Dose: 650 mg Documented by: Acetaminophen (Acetaminophen 325 Mg Tablet) 650 mg PO Q6H PRN PRN Reason: Headache/Pain Mild Scale (1-3) Al Hydroxide/Mg Hydroxide (Magnesium Hydrox/Alum Hydrox 30 Ml Oral.Susp) 30 ml PO Q6H PRN PRN Reason: Heartburn/Nausea Last Admin: 12/16/21 14:54 Dose: 30 ml Documented by: Albuterol Sulfate (Albuterol Sulfate 90 Mcg 8 Gm Inhaler) 2 puff INHALE Q6H PRN PRN Reason: Shortness Of Breath Last Admin: 12/24/21 21:33 Dose: 2 puff Documented by: Amlodipine Besylate (Amlodipine Besylate 10 Mg Tablet) 10 mg PO DAILY [facility]; Protocol Last Admin: 12/30/21 08:16 Dose: 10 mg Documented by: Artificial Tears (Artificial Tears 15 Ml Drops) 1 drop EYE-BOTH Q1H PRN PRN Reason: Dry Eye(S) Docusate Sodium (Docusate Sodium 100 Mg Capsule) 100 mg PO BID PRN PRN Reason: Constipation Last Admin: 12/23/21 12:44 Dose: 100 mg Documented by: Finasteride (Finasteride 5 Mg Tablet) 5 mg PO DAILY [facility] Last Admin: 12/30/21 08:15 Dose: 5 mg Documented by: Gabapentin (Gabapentin 400 Mg Capsule) 400 mg PO TID [facility] Last Admin: 12/30/21 14:23 Dose: 400 mg Documented by: Hydrochlorothiazide (Hydrochlorothiazide 12.5 Mg Tablet) 12.5 mg PO DAILY [facility]; Protocol Last Admin: 12/30/21 08:15 Dose: 12.5 mg Documented by: Hydrocortisone (Hydrocortisone 1 % Cream 28.35 Gm Tube) 1 appl TOPICAL BID [facility]; Protocol Last Admin: 12/30/21 08:16 Dose: 1 appl Documented by: Hydroxyzine HCl (Hydroxyzine Hcl 25 Mg Tablet) 25 mg PO BEDTIME PRN PRN Reason: Anxiety Last Admin: 12/18/21 03:17 Dose: 25 mg Documented by: Ibuprofen (Ibuprofen 400 Mg Tablet) 400 mg PO Q6H PRN PRN Reason: Pain, Moderate (Pain Scale 4-6 Last Admin: 12/30/21 06:15 Dose: 400 mg Documented by: Lamotrigine (Lamotrigine 100 Mg Tablet) 200 mg PO BID [facility] Last Admin: 12/30/21 08:15 Dose: 200 mg Documented by: Latanoprost (Latanoprost 0.005 % Ophth No 2.5 Ml Drops) 1 drop EYE-BOTH BEDTIME [facility] Last Admin: 12/29/21 21:23 Dose: 1 drop Documented by: Lidocaine (Lidocaine 4 % Patch Adh..Patch) 1 patch TRANSDERMA DAILY [facility]; Protocol Last Admin: 12/30/21 08:16 Dose: Not Given Documented by: Lisinopril (Lisinopril 40 Mg Tablet) 40 mg PO DAILY [facility]; Protocol Last Admin: 12/30/21 08:15 Dose: 40 mg Documented by: Lorazepam (Lorazepam 0.5 Mg Tablet) 0.5 mg PO Q6H PRN PRN Reason: Anxiety Last Admin: 12/29/21 21:25 Dose: 0.5 mg Documented by: Magnesium Hydroxide (Milk Of Magnesia 30 Ml Oral.Susp) 30 ml PO Q72H PRN PRN Reason: Constipation Last Admin: 12/12/21 10:20 Dose: 30 ml Documented by: Magnesium Hydroxide (Milk Of Magnesia 30 Ml Oral.Susp) 30 ml PO DAILY PRN PRN Reason: Constipation Melatonin (Melatonin 3 Mg Tablet) 6 mg PO BEDTIME [facility] Last Admin: 12/29/21 21:26 Dose: 6 mg Documented by: Multivitamins/Vitamin C (Multivitamin Tablet) 1 tab PO DAILY [facility] Last Admin: 12/30/21 08:15 Dose: 1 tab Documented by: Nortriptyline HCl (Nortriptyline Hcl 25 Mg Capsule) 100 mg PO BEDTIME [facility] Last Admin: 12/29/21 21:24 Dose: 100 mg Documented by: Nystatin (Nystatin Cream 15 Gm Tube) 1 appl TOPICAL BID [facility]; Protocol Last Admin: 12/30/21 08:17 Dose: Not Given Documented by: Polyethylene Glycol (Polyethylene Glycol 3350 17 Gm Powd.Pack) 17 gm PO DAILY PRN PRN Reason: Constipation Last Admin: 12/22/21 21:39 Dose: 17 gm Documented by: Polyethylene Glycol (Polyethylene Glycol 3350 17 Gm Powd.Pack) 17 gm PO DAILY@1600 [facility] Last Admin: 12/29/21 17:14 Dose: 17 gm Documented by: Pramipexole Dihydrochloride (Pramipexole Di-Hcl 0.125 Mg Tablet) 0.125 mg PO TID [facility] Last Admin: 12/30/21 14:23 Dose: 0.125 mg Documented by: Psyllium Hydrophilic Mucilloid (Psyllium Seed 3.4 Gm Powd.Pack) 3.4 gm PO DAILY [facility] Last Admin: 12/30/21 14:25 Dose: 3.4 gm Documented by: Quetiapine Fumarate (Quetiapine Fumarate 25 Mg Tablet) 25 mg PO BID PRN PRN Reason: Anxiety Last Admin: 12/27/21 13:02 Dose: 25 mg Documented by: Quetiapine Fumarate (Quetiapine Fumarate 50 Mg Tablet) 50 mg PO BEDTIME [facility] Last Admin: 12/29/21 21:26 Dose: 50 mg Documented by: Quetiapine Fumarate (Quetiapine Fumarate 25 Mg Tablet) 25 mg PO DAILY@1300 [facility] Last Admin: 12/30/21 14:23 Dose: 25 mg Documented by: Trazodone HCl (Trazodone Hcl 50 Mg Tablet) 50 mg PO BEDTIME PRN PRN Reason: Insomnia Last Admin: 12/28/21 02:10 Dose: 50 mg Documented by: Trazodone HCl (Trazodone Hcl 100 Mg Tablet) 200 mg PO BEDTIME [facility] Last Admin: 12/29/21 21:26 Dose: 200 mg Documented by: Vitamin D (Cholecalciferol (Vitamin D3) 10 Mcg Tablet) 20 mcg PO DAILY [facility] Last Admin: 12/30/21 08:15 Dose: 20 mcg Documented by: Allergies Allergies Allergy/AdvReac Type Severity Reaction Status Date / Time fentanyl [FENTANYL] Allergy Intermediate unknown Verified 05/22/21 11:43 Assessment & Plan Assessment & Plan (1) Major depressive disorder, recurrent severe without psychotic features: Status: Acute Code(s): F33.2 - Major depressive disorder, recurrent severe without psychotic features Assessment and Plan: stop trintellix cont nortrip seroquel ck re 1sponse check for si limited coping encourage alt way to look and cope with things encourage aftercare IT grp (2) Cognitive and neurobehavioral dysfunction following brain injury: Status: Acute Code(s): G31.89 - Other specified degenerative diseases of nervous system; F09 - Unspecified mental disorder due to known physiological condition; S06.9X9S - Unspecified intracranial injury with loss of consciousness of unspecified duration, sequela Assessment and Plan: Thegabapentin lamictal (3) HTN (hypertension): Status: Acute Code(s): I10 - Essential (primary) hypertension Plan Middle-aged male with a long history of mood symptoms with several admissions into the hospital for suicidal ideation. He also carries a diagnosis of TBI, historically he used to be highly functional but at this moment his wheelchair bounded and very angry at times. Plan 1. Continue same medications. 2. Pamelor 100 mg HS Nortriptilyne level on 34 on 50 mg/day. 3. Gather collateral information. I spent minutes with the patient and/or on the patient floor today, greater than?50% of which was spent counseling/coordinating care. Reason for contiued inpatient stay Substantial Risk for: harm to self, inability to function, rapid decompensation and med/psych decompensation
[2021-12-30 18:00] VITALS: BP 136/68; PULSE 76; TEMP 36.5; O2SAT 98
[2021-12-30] MEDS: Acetaminophen 325 MG TABLET 650 MG PO (18:03)
[2021-12-30] MEDS: Nortriptyline HCl 25 MG CAPSULE 100 MG PO (21:55)
[2021-12-30] MEDS: traZODone HCL 100 MG TABLET 200 MG PO (21:56)
[2021-12-30] MEDS: Melatonin 3 MG TABLET 6 MG PO (21:56)
[2021-12-30] MEDS: QUEtiapine Fumarate 50 MG TABLET PO (21:56)
[2021-12-30] MEDS: LORazepam 0.5 MG TABLET PO (21:59)
[2021-12-30] MEDS: Nystatin Cream 15 GM TUBE 1 APPL TOPICAL (22:05)
[2021-12-30] MEDS: Latanoprost 0.005 % Ophth Sol 2.5 ML DROPS 1 DROP EYE-BOTH (22:06)
[2021-12-31] MEDS: traZODone HCL 50 MG TABLET PO (01:28)
[2021-12-31] MEDS: Ibuprofen 400 MG TABLET PO ×2 (06:34→14:56)
[2021-12-31 07:55] VITALS: BP 160/78; PULSE 68; RESP 17; TEMP 36.4; O2SAT 100
[2021-12-31] MEDS: lamoTRIgine 100 MG TABLET 200 MG PO ×2 (08:25→21:15)
[2021-12-31] MEDS: Cholecalciferol (Vitamin D3) 10 MCG TABLET 20 MCG PO (08:25)
[2021-12-31] MEDS: Gabapentin 400 MG CAPSULE PO ×3 (08:25→21:15)
[2021-12-31] MEDS: Pramipexole Di-HCL 0.125 MG TABLET PO ×3 (08:25→21:14)
[2021-12-31] MEDS: hydroCHLOROthiazide 12.5 MG TABLET PO (08:26)
[2021-12-31] MEDS: Finasteride 5 MG TABLET PO (08:26)
[2021-12-31] MEDS: lisinopriL 40 MG TABLET PO (08:26)
[2021-12-31] MEDS: Multivitamin TABLET 1 TAB PO (08:26)
[2021-12-31] MEDS: amLODIPine Besylate 10 MG TABLET PO (08:26)
[2021-12-31 13:40] VITALS: BP 142/75; PULSE 79
[2021-12-31] MEDS: QUEtiapine Fumarate 25 MG TABLET PO (14:57)
--- NOTE | 2021-12-31 15:29 | HO.PSYCHPN ---
Subjective Subjective Date of Service: 12/31/21 Reason For Visit: SI Subjective Notes: Conditional Voluntary Interim History: The nursing staff reported the patient has been compliant with treatment. He stays mostly in the common area watching TV all day long. Yesterday he had a long conversation with the school social worker regarding outpatient services and a safe discharge planning and he has contradicted several times regarding his functionality. He has realized that he has 6 0 stated several services due to his noncompliance as an outpatient. On interview he reports that his depressed, this moment he is on nortriptyline 100 mg at night with a therapeutic Level. Mental Status Exam Mental Status Exam Patient Appearance: Well Grooomed Patient Orientation: Person and Situation Level of Consciousness: Awake Patient Behavior: Guarded and Passive Mood Description: Depressed Affect Description: Constricted Patient Cognition Impaired: No Ability to Follow Directions: Good Speech Pattern: Appropriate Hallucinations: None Delusions: Not Present Thought Process: Linear Thought Content: positive for Circumstantial Judgement: Fair Diagnostics Vital Signs (24Hr): Vital Signs - 24 hr 12/30/21 18:00 12/31/21 07:55 12/31/21 13:40 Temperature 97.7 F 97.6 F Pulse Rate 76 68 79 Respiratory Rate 17 Blood Pressure 136/68 160/78 H 142/75 H Pulse Oximetry 98 100 BMI result Body Mass Index 31.4 Labs Results: 12/09/21 19:15 12/09/21 19:15 Medications Medications Current Medications Acetaminophen (Acetaminophen 325 Mg Tablet) 650 mg PO Q6H PRN PRN Reason: Pain (Scale Score 1-3) Last Admin: 12/30/21 18:03 Dose: 650 mg Documented by: Acetaminophen (Acetaminophen 325 Mg Tablet) 650 mg PO Q6H PRN PRN Reason: Headache/Pain Mild Scale (1-3) Al Hydroxide/Mg Hydroxide (Magnesium Hydrox/Alum Hydrox 30 Ml Oral.Susp) 30 ml PO Q6H PRN PRN Reason: Heartburn/Nausea Last Admin: 12/16/21 14:54 Dose: 30 ml Documented by: Albuterol Sulfate (Albuterol Sulfate 90 Mcg 8 Gm Inhaler) 2 puff INHALE Q6H PRN PRN Reason: Shortness Of Breath Last Admin: 12/24/21 21:33 Dose: 2 puff Documented by: Amlodipine Besylate (Amlodipine Besylate 10 Mg Tablet) 10 mg PO DAILY [facility]; Protocol Last Admin: 12/31/21 08:26 Dose: 10 mg Documented by: Artificial Tears (Artificial Tears 15 Ml Drops) 1 drop EYE-BOTH Q1H PRN PRN Reason: Dry Eye(S) Docusate Sodium (Docusate Sodium 100 Mg Capsule) 100 mg PO BID PRN PRN Reason: Constipation Last Admin: 12/23/21 12:44 Dose: 100 mg Documented by: Finasteride (Finasteride 5 Mg Tablet) 5 mg PO DAILY [facility] Last Admin: 12/31/21 08:26 Dose: 5 mg Documented by: Gabapentin (Gabapentin 400 Mg Capsule) 400 mg PO TID [facility] Last Admin: 12/31/21 14:56 Dose: 400 mg Documented by: Hydrochlorothiazide (Hydrochlorothiazide 12.5 Mg Tablet) 12.5 mg PO DAILY [facility]; Protocol Last Admin: 12/31/21 08:26 Dose: 12.5 mg Documented by: Hydrocortisone (Hydrocortisone 1 % Cream 28.35 Gm Tube) 1 appl TOPICAL BID [facility]; Protocol Last Admin: 12/31/21 08:29 Dose: Not Given Documented by: Hydroxyzine HCl (Hydroxyzine Hcl 25 Mg Tablet) 25 mg PO BEDTIME PRN PRN Reason: Anxiety Last Admin: 12/18/21 03:17 Dose: 25 mg Documented by: Ibuprofen (Ibuprofen 400 Mg Tablet) 400 mg PO Q6H PRN PRN Reason: Pain, Moderate (Pain Scale 4-6 Last Admin: 12/31/21 14:56 Dose: 400 mg Documented by: Lamotrigine (Lamotrigine 100 Mg Tablet) 200 mg PO BID [facility] Last Admin: 12/31/21 08:25 Dose: 200 mg Documented by: Latanoprost (Latanoprost 0.005 % Ophth No 2.5 Ml Drops) 1 drop EYE-BOTH BEDTIME [facility] Last Admin: 12/30/21 22:06 Dose: 1 drop Documented by: Lidocaine (Lidocaine 4 % Patch Adh..Patch) 1 patch TRANSDERMA DAILY [facility]; Protocol Last Admin: 12/31/21 08:29 Dose: Not Given Documented by: Lisinopril (Lisinopril 40 Mg Tablet) 40 mg PO DAILY [facility]; Protocol Last Admin: 12/31/21 08:26 Dose: 40 mg Documented by: Lorazepam (Lorazepam 0.5 Mg Tablet) 0.5 mg PO Q6H PRN PRN Reason: Anxiety Last Admin: 12/30/21 21:59 Dose: 0.5 mg Documented by: Magnesium Hydroxide (Milk Of Magnesia 30 Ml Oral.Susp) 30 ml PO Q72H PRN PRN Reason: Constipation Last Admin: 12/12/21 10:20 Dose: 30 ml Documented by: Magnesium Hydroxide (Milk Of Magnesia 30 Ml Oral.Susp) 30 ml PO DAILY PRN PRN Reason: Constipation Melatonin (Melatonin 3 Mg Tablet) 6 mg PO BEDTIME [facility] Last Admin: 12/30/21 21:56 Dose: 6 mg Documented by: Multivitamins/Vitamin C (Multivitamin Tablet) 1 tab PO DAILY [facility] Last Admin: 12/31/21 08:26 Dose: 1 tab Documented by: Nortriptyline HCl (Nortriptyline Hcl 25 Mg Capsule) 100 mg PO BEDTIME [facility] Last Admin: 12/30/21 21:55 Dose: 100 mg Documented by: Nystatin (Nystatin Cream 15 Gm Tube) 1 appl TOPICAL BID [facility]; Protocol Last Admin: 12/31/21 08:29 Dose: Not Given Documented by: Polyethylene Glycol (Polyethylene Glycol 3350 17 Gm Powd.Pack) 17 gm PO DAILY PRN PRN Reason: Constipation Last Admin: 12/22/21 21:39 Dose: 17 gm Documented by: Polyethylene Glycol (Polyethylene Glycol 3350 17 Gm Powd.Pack) 17 gm PO DAILY@1600 [facility] Last Admin: 12/30/21 16:44 Dose: Not Given Documented by: Pramipexole Dihydrochloride (Pramipexole Di-Hcl 0.125 Mg Tablet) 0.125 mg PO TID [facility] Last Admin: 12/31/21 14:57 Dose: 0.125 mg Documented by: Psyllium Hydrophilic Mucilloid (Psyllium Seed 3.4 Gm Powd.Pack) 3.4 gm PO DAILY [facility] Last Admin: 12/31/21 08:25 Dose: 3.4 gm Documented by: Quetiapine Fumarate (Quetiapine Fumarate 25 Mg Tablet) 25 mg PO BID PRN PRN Reason: Anxiety Last Admin: 12/27/21 13:02 Dose: 25 mg Documented by: Quetiapine Fumarate (Quetiapine Fumarate 50 Mg Tablet) 50 mg PO BEDTIME [facility] Last Admin: 12/30/21 21:56 Dose: 50 mg Documented by: Quetiapine Fumarate (Quetiapine Fumarate 25 Mg Tablet) 25 mg PO DAILY@1300 [facility] Last Admin: 12/31/21 14:57 Dose: 25 mg Documented by: Trazodone HCl (Trazodone Hcl 50 Mg Tablet) 50 mg PO BEDTIME PRN PRN Reason: Insomnia Last Admin: 12/31/21 01:28 Dose: 50 mg Documented by: Trazodone HCl (Trazodone Hcl 100 Mg Tablet) 200 mg PO BEDTIME [facility] Last Admin: 12/30/21 21:56 Dose: 200 mg Documented by: Vitamin D (Cholecalciferol (Vitamin D3) 10 Mcg Tablet) 20 mcg PO DAILY [facility] Last Admin: 12/31/21 08:25 Dose: 20 mcg Documented by: Allergies Allergies Allergy/AdvReac Type Severity Reaction Status Date / Time fentanyl [FENTANYL] Allergy Intermediate unknown Verified 05/22/21 11:43 Assessment & Plan Assessment & Plan (1) Major depressive disorder, recurrent severe without psychotic features: Status: Acute Code(s): F33.2 - Major depressive disorder, recurrent severe without psychotic features Assessment and Plan: stop trintellix cont nortrip seroquel ck re 1sponse check for si limited coping encourage alt way to look and cope with things encourage aftercare IT grp (2) Cognitive and neurobehavioral dysfunction following brain injury: Status: Acute Code(s): G31.89 - Other specified degenerative diseases of nervous system; F09 - Unspecified mental disorder due to known physiological condition; S06.9X9S - Unspecified intracranial injury with loss of consciousness of unspecified duration, sequela Assessment and Plan: Thegabapentin lamictal (3) HTN (hypertension): Status: Acute Code(s): I10 - Essential (primary) hypertension Plan Middle-aged male with a long history of mood symptoms with several admissions into the hospital for suicidal ideation. He also carries a diagnosis of TBI, historically he used to be highly functional but at this moment his wheelchair bounded and very angry at times. Plan 1. Continue same medications. 2. Pamelor 100 mg HS Nortriptilyne level on 34 on 50 mg/day. 3. Gather collateral information. I spent minutes with the patient and/or on the patient floor today, greater than?50% of which was spent counseling/coordinating care. Reason for contiued inpatient stay Substantial Risk for: inability to function, rapid decompensation and med/psych decompensation
[2021-12-31] MEDS: polyethylene glycoL 3350 17 GM POWD.PACK PO (16:42)
[2021-12-31 20:30] VITALS: PULSE 75; RESP 18; TEMP 36.5; O2SAT 95
[2021-12-31] MEDS: Latanoprost 0.005 % Ophth Sol 2.5 ML DROPS 1 DROP EYE-BOTH (21:12)
[2021-12-31] MEDS: traZODone HCL 100 MG TABLET 200 MG PO (21:12)
[2021-12-31] MEDS: Nortriptyline HCl 25 MG CAPSULE 100 MG PO (21:13)
[2021-12-31] MEDS: QUEtiapine Fumarate 50 MG TABLET PO (21:15)
[2021-12-31] MEDS: LORazepam 0.5 MG TABLET PO (21:16)
[2021-12-31] MEDS: Melatonin 3 MG TABLET 6 MG PO (21:16)
[2021-12-31] MEDS: Nystatin Cream 15 GM TUBE 1 APPL TOPICAL (21:21)
[2022-01-01] MEDS: Ibuprofen 400 MG TABLET PO ×2 (03:18→15:23)
[2022-01-01] MEDS: LORazepam 0.5 MG TABLET PO ×2 (03:19→21:26)
[2022-01-01 06:00] VITALS: BP 147/84; PULSE 85; RESP 17; TEMP 36.2; O2SAT 97
[2022-01-01] MEDS: amLODIPine Besylate 10 MG TABLET PO (09:31)
[2022-01-01] MEDS: Finasteride 5 MG TABLET PO (09:32)
[2022-01-01] MEDS: Multivitamin TABLET 1 TAB PO (09:32)
[2022-01-01] MEDS: lisinopriL 40 MG TABLET PO (09:32)
[2022-01-01] MEDS: Gabapentin 400 MG CAPSULE PO ×3 (09:32→21:26)
[2022-01-01] MEDS: lamoTRIgine 100 MG TABLET 200 MG PO ×2 (09:32→21:26)
[2022-01-01] MEDS: Cholecalciferol (Vitamin D3) 10 MCG TABLET 20 MCG PO (09:32)
[2022-01-01] MEDS: hydroCHLOROthiazide 12.5 MG TABLET PO (09:32)
[2022-01-01] MEDS: Pramipexole Di-HCL 0.125 MG TABLET PO ×3 (09:32→21:26)
--- NOTE | 2022-01-01 11:21 | PC.NURSE ---
Pt reported to night RN that he had crushed his right hand between his body and mechanical lift while transferring to bathroom. However, bruising on pt's back of hand appears old on assessment and was observed to have been from past IV blood draw. Pt was further asked about the bruising where pt admitted to have made up the story so staff would feel sorry for him pt stated yes I made that up so people feel sorry for me. As of 12/31/21, pt did not fall although pt states otherwise.
[2022-01-01] MEDS: QUEtiapine Fumarate 25 MG TABLET PO (12:38)
[2022-01-01] MEDS: polyethylene glycoL 3350 17 GM POWD.PACK PO (15:23)
--- NOTE | 2022-01-01 16:51 | HO.PSYCHPN ---
Subjective Subjective Date of Service: 01/01/22 Reason For Visit: SI Subjective Notes: Conditional Voluntary Interim History: the nursing staff reported the patient has not change in his mental status, his compliant with medications. On interview the patient reports that he feels much better and he wants to have the providers meeting for tomorrow. Mental Status Exam Mental Status Exam Patient Appearance: Appropriate Patient Orientation: Person and Situation Level of Consciousness: Awake Patient Behavior: Appropriate Mood Description: Calm Affect Description: Constricted Patient Cognition Impaired: No Ability to Follow Directions: Good Speech Pattern: Clear Hallucinations: None Delusions: Not Present Thought Process: Linear Thought Content: positive for Circumstantial Judgement: Fair Diagnostics Vital Signs (24Hr): Vital Signs - 24 hr 12/31/21 20:30 01/01/22 06:00 Temperature 97.7 F 97.2 F Pulse Rate 75 85 Respiratory Rate 18 17 Blood Pressure 147/84 H Pulse Oximetry 95 97 BMI result Body Mass Index 31.4 Labs Results: 12/09/21 19:15 12/09/21 19:15 Medications Medications Current Medications Acetaminophen (Acetaminophen 325 Mg Tablet) 650 mg PO Q6H PRN PRN Reason: Pain (Scale Score 1-3) Last Admin: 12/30/21 18:03 Dose: 650 mg Documented by: Acetaminophen (Acetaminophen 325 Mg Tablet) 650 mg PO Q6H PRN PRN Reason: Headache/Pain Mild Scale (1-3) Al Hydroxide/Mg Hydroxide (Magnesium Hydrox/Alum Hydrox 30 Ml Oral.Susp) 30 ml PO Q6H PRN PRN Reason: Heartburn/Nausea Last Admin: 12/16/21 14:54 Dose: 30 ml Documented by: Albuterol Sulfate (Albuterol Sulfate 90 Mcg 8 Gm Inhaler) 2 puff INHALE Q6H PRN PRN Reason: Shortness Of Breath Last Admin: 12/24/21 21:33 Dose: 2 puff Documented by: Amlodipine Besylate (Amlodipine Besylate 10 Mg Tablet) 10 mg PO DAILY [facility]; Protocol Last Admin: 01/01/22 09:31 Dose: 10 mg Documented by: Artificial Tears (Artificial Tears 15 Ml Drops) 1 drop EYE-BOTH Q1H PRN PRN Reason: Dry Eye(S) Docusate Sodium (Docusate Sodium 100 Mg Capsule) 100 mg PO BID PRN PRN Reason: Constipation Last Admin: 12/23/21 12:44 Dose: 100 mg Documented by: Finasteride (Finasteride 5 Mg Tablet) 5 mg PO DAILY [facility] Last Admin: 01/01/22 09:32 Dose: 5 mg Documented by: Gabapentin (Gabapentin 400 Mg Capsule) 400 mg PO TID [facility] Last Admin: 01/01/22 15:23 Dose: 400 mg Documented by: Hydrochlorothiazide (Hydrochlorothiazide 12.5 Mg Tablet) 12.5 mg PO DAILY [facility]; Protocol Last Admin: 01/01/22 09:32 Dose: 12.5 mg Documented by: Hydrocortisone (Hydrocortisone 1 % Cream 28.35 Gm Tube) 1 appl TOPICAL BID [facility]; Protocol Last Admin: 01/01/22 10:12 Dose: Not Given Documented by: Hydroxyzine HCl (Hydroxyzine Hcl 25 Mg Tablet) 25 mg PO BEDTIME PRN PRN Reason: Anxiety Last Admin: 12/18/21 03:17 Dose: 25 mg Documented by: Ibuprofen (Ibuprofen 400 Mg Tablet) 400 mg PO Q6H PRN PRN Reason: Pain, Moderate (Pain Scale 4-6 Last Admin: 01/01/22 15:23 Dose: 400 mg Documented by: Lamotrigine (Lamotrigine 100 Mg Tablet) 200 mg PO BID [facility] Last Admin: 01/01/22 09:32 Dose: 200 mg Documented by: Latanoprost (Latanoprost 0.005 % Ophth No 2.5 Ml Drops) 1 drop EYE-BOTH BEDTIME [facility] Last Admin: 12/31/21 21:12 Dose: 1 drop Documented by: Lidocaine (Lidocaine 4 % Patch Adh..Patch) 1 patch TRANSDERMA DAILY [facility]; Protocol Last Admin: 01/01/22 10:12 Dose: Not Given Documented by: Lisinopril (Lisinopril 40 Mg Tablet) 40 mg PO DAILY [facility]; Protocol Last Admin: 01/01/22 09:32 Dose: 40 mg Documented by: Lorazepam (Lorazepam 0.5 Mg Tablet) 0.5 mg PO Q6H PRN PRN Reason: Anxiety Last Admin: 01/01/22 03:19 Dose: 0.5 mg Documented by: Magnesium Hydroxide (Milk Of Magnesia 30 Ml Oral.Susp) 30 ml PO Q72H PRN PRN Reason: Constipation Last Admin: 12/12/21 10:20 Dose: 30 ml Documented by: Magnesium Hydroxide (Milk Of Magnesia 30 Ml Oral.Susp) 30 ml PO DAILY PRN PRN Reason: Constipation Melatonin (Melatonin 3 Mg Tablet) 6 mg PO BEDTIME [facility] Last Admin: 12/31/21 21:16 Dose: 6 mg Documented by: Multivitamins/Vitamin C (Multivitamin Tablet) 1 tab PO DAILY [facility] Last Admin: 01/01/22 09:32 Dose: 1 tab Documented by: Nortriptyline HCl (Nortriptyline Hcl 25 Mg Capsule) 100 mg PO BEDTIME [facility] Last Admin: 12/31/21 21:13 Dose: 100 mg Documented by: Nystatin (Nystatin Cream 15 Gm Tube) 1 appl TOPICAL BID [facility]; Protocol Last Admin: 01/01/22 10:13 Dose: Not Given Documented by: Polyethylene Glycol (Polyethylene Glycol 3350 17 Gm Powd.Pack) 17 gm PO DAILY PRN PRN Reason: Constipation Last Admin: 12/22/21 21:39 Dose: 17 gm Documented by: Polyethylene Glycol (Polyethylene Glycol 3350 17 Gm Powd.Pack) 17 gm PO DAILY@1600 [facility] Last Admin: 01/01/22 15:23 Dose: 17 gm Documented by: Pramipexole Dihydrochloride (Pramipexole Di-Hcl 0.125 Mg Tablet) 0.125 mg PO TID [facility] Last Admin: 01/01/22 15:23 Dose: 0.125 mg Documented by: Psyllium Hydrophilic Mucilloid (Psyllium Seed 3.4 Gm Powd.Pack) 3.4 gm PO DAILY [facility] Last Admin: 01/01/22 09:31 Dose: 3.4 gm Documented by: Quetiapine Fumarate (Quetiapine Fumarate 25 Mg Tablet) 25 mg PO BID PRN PRN Reason: Anxiety Last Admin: 12/27/21 13:02 Dose: 25 mg Documented by: Quetiapine Fumarate (Quetiapine Fumarate 50 Mg Tablet) 50 mg PO BEDTIME [facility] Last Admin: 12/31/21 21:15 Dose: 50 mg Documented by: Quetiapine Fumarate (Quetiapine Fumarate 25 Mg Tablet) 25 mg PO DAILY@1300 [facility] Last Admin: 01/01/22 12:38 Dose: 25 mg Documented by: Trazodone HCl (Trazodone Hcl 50 Mg Tablet) 50 mg PO BEDTIME PRN PRN Reason: Insomnia Last Admin: 12/31/21 01:28 Dose: 50 mg Documented by: Trazodone HCl (Trazodone Hcl 100 Mg Tablet) 200 mg PO BEDTIME [facility] Last Admin: 12/31/21 21:12 Dose: 200 mg Documented by: Vitamin D (Cholecalciferol (Vitamin D3) 10 Mcg Tablet) 20 mcg PO DAILY [facility] Last Admin: 01/01/22 09:32 Dose: 20 mcg Documented by: Allergies Allergies Allergy/AdvReac Type Severity Reaction Status Date / Time fentanyl [FENTANYL] Allergy Intermediate unknown Verified 05/22/21 11:43 Assessment & Plan Assessment & Plan (1) Major depressive disorder, recurrent severe without psychotic features: Status: Acute Code(s): F33.2 - Major depressive disorder, recurrent severe without psychotic features Assessment and Plan: stop trintellix cont nortrip seroquel ck re 1sponse check for si limited coping encourage alt way to look and cope with things encourage aftercare IT grp (2) Cognitive and neurobehavioral dysfunction following brain injury: Status: Acute Code(s): G31.89 - Other specified degenerative diseases of nervous system; F09 - Unspecified mental disorder due to known physiological condition; S06.9X9S - Unspecified intracranial injury with loss of consciousness of unspecified duration, sequela Assessment and Plan: Thegabapentin lamictal (3) HTN (hypertension): Status: Acute Code(s): I10 - Essential (primary) hypertension Plan Middle-aged male with a long history of mood symptoms with several admissions into the hospital for suicidal ideation. He also carries a diagnosis of TBI, historically he used to be highly functional but at this moment his wheelchair bounded and very angry at times. Plan 1. Continue same medications. 2. Pamelor 100 mg HS Nortriptilyne level on 34 on 50 mg/day. 3. Gather collateral information. I spent minutes with the patient and/or on the patient floor today, greater than?50% of which was spent counseling/coordinating care. Reason for contiued inpatient stay Substantial Risk for: inability to function, rapid decompensation and med/psych decompensation
[2022-01-01 18:00] VITALS: BP 128/67; PULSE 74; RESP 18; TEMP 36.3; O2SAT 96
[2022-01-01] MEDS: Melatonin 3 MG TABLET 6 MG PO (21:25)
[2022-01-01] MEDS: Nystatin Cream 15 GM TUBE 1 APPL TOPICAL (21:25)
[2022-01-01] MEDS: Hydrocortisone 1 % Cream 28.35 GM TUBE 1 APPL TOPICAL (21:25)
[2022-01-01] MEDS: Nortriptyline HCl 25 MG CAPSULE 100 MG PO (21:25)
[2022-01-01] MEDS: Latanoprost 0.005 % Ophth Sol 2.5 ML DROPS 1 DROP EYE-BOTH (21:25)
[2022-01-01] MEDS: traZODone HCL 100 MG TABLET 200 MG PO (21:26)
[2022-01-01] MEDS: QUEtiapine Fumarate 50 MG TABLET PO (21:26)
[2022-01-02] MEDS: Ibuprofen 400 MG TABLET PO ×3 (05:34→22:03)
[2022-01-02 07:45] VITALS: BP 135/65; PULSE 70; RESP 18; TEMP 36.3; O2SAT 97
[2022-01-02] MEDS: Cholecalciferol (Vitamin D3) 10 MCG TABLET 20 MCG PO (08:38)
[2022-01-02] MEDS: Finasteride 5 MG TABLET PO (08:38)
[2022-01-02] MEDS: lamoTRIgine 100 MG TABLET 200 MG PO ×2 (08:39→22:02)
[2022-01-02] MEDS: Gabapentin 400 MG CAPSULE PO ×3 (08:39→22:01)
[2022-01-02] MEDS: lisinopriL 40 MG TABLET PO (08:39)
[2022-01-02] MEDS: Pramipexole Di-HCL 0.125 MG TABLET PO ×3 (08:39→22:00)
[2022-01-02] MEDS: Multivitamin TABLET 1 TAB PO (08:39)
[2022-01-02] MEDS: hydroCHLOROthiazide 12.5 MG TABLET PO (08:39)
[2022-01-02] MEDS: amLODIPine Besylate 10 MG TABLET PO (08:39)
[2022-01-02 09:44] VITALS: BMI 30.5
[2022-01-02] MEDS: polyethylene glycoL 3350 17 GM POWD.PACK PO (14:16)
[2022-01-02] MEDS: QUEtiapine Fumarate 25 MG TABLET PO (14:16)
[2022-01-02] MEDS: LORazepam 0.5 MG TABLET PO (16:09)
--- NOTE | 2022-01-02 16:26 | P.PNPSI_ITS ---
Subjective Subjective Date of Service: 01/02/22 Reason For Visit: SI Subjective Notes: Conditional Voluntary Interim History: The nursing staff reported that the patient had been agitated yesterday yelling at staff when his needs are not fulfilled immediately. He punched a wall. Later on, the patient stated that he is doing very fine and he wants to be discharged back to his assisted in [place]. Today we had a meeting with all his providers and the assisted feels that they can not fulfilled his needs in this facility and they were planning for possible discharge to a subacute rehab facility or a retirement. The patient has been very anxious, angry and disappointed, he does not want to go to retirement. I explained to the patient that unfortunately, we need to think more safety than on his wishes Mental Status Exam Mental Status Exam Patient Appearance: Well Grooomed Patient Orientation: Person and Situation Level of Consciousness: Awake Patient Behavior: Passive Mood Description: Depressed Affect Description: Constricted Patient Cognition Impaired: Yes Ability to Follow Directions: Good Speech Pattern: Clear Memory Description: Intact Delusions: Not Present Thought Process: Linear Thought Content: positive for Circumstantial and positive for Preoccupation Judgement: Fair Diagnostics Vital Signs (24Hr): Vital Signs - 24 hr 01/01/22 18:00 01/02/22 07:45 Temperature 97.3 F 97.4 F Pulse Rate 74 70 Respiratory Rate 18 18 Blood Pressure 128/67 135/65 Pulse Oximetry 96 97 BMI result Body Mass Index 30.5 Labs Results: 12/09/21 19:15 12/09/21 19:15 Medications Medications Current Medications Acetaminophen (Acetaminophen 325 Mg Tablet) 650 mg PO Q6H PRN PRN Reason: Pain (Scale Score 1-3) Last Admin: 12/30/21 18:03 Dose: 650 mg Documented by: Acetaminophen (Acetaminophen 325 Mg Tablet) 650 mg PO Q6H PRN PRN Reason: Headache/Pain Mild Scale (1-3) Al Hydroxide/Mg Hydroxide (Magnesium Hydrox/Alum Hydrox 30 Ml Oral.Susp) 30 ml PO Q6H PRN PRN Reason: Heartburn/Nausea Last Admin: 12/16/21 14:54 Dose: 30 ml Documented by: Albuterol Sulfate (Albuterol Sulfate 90 Mcg 8 Gm Inhaler) 2 puff INHALE Q6H PRN PRN Reason: Shortness Of Breath Last Admin: 12/24/21 21:33 Dose: 2 puff Documented by: Amlodipine Besylate (Amlodipine Besylate 10 Mg Tablet) 10 mg PO DAILY [facility]; Protocol Last Admin: 01/02/22 08:39 Dose: 10 mg Documented by: Artificial Tears (Artificial Tears 15 Ml Drops) 1 drop EYE-BOTH Q1H PRN PRN Reason: Dry Eye(S) Docusate Sodium (Docusate Sodium 100 Mg Capsule) 100 mg PO BID PRN PRN Reason: Constipation Last Admin: 12/23/21 12:44 Dose: 100 mg Documented by: Finasteride (Finasteride 5 Mg Tablet) 5 mg PO DAILY [facility] Last Admin: 01/02/22 08:38 Dose: 5 mg Documented by: Gabapentin (Gabapentin 400 Mg Capsule) 400 mg PO TID [facility] Last Admin: 01/02/22 14:16 Dose: 400 mg Documented by: Hydrochlorothiazide (Hydrochlorothiazide 12.5 Mg Tablet) 12.5 mg PO DAILY [facility]; Protocol Last Admin: 01/02/22 08:39 Dose: 12.5 mg Documented by: Hydrocortisone (Hydrocortisone 1 % Cream 28.35 Gm Tube) 1 appl TOPICAL BID [facility]; Protocol Last Admin: 01/02/22 08:43 Dose: Not Given Documented by: Hydroxyzine HCl (Hydroxyzine Hcl 25 Mg Tablet) 25 mg PO BEDTIME PRN PRN Reason: Anxiety Last Admin: 12/18/21 03:17 Dose: 25 mg Documented by: Ibuprofen (Ibuprofen 400 Mg Tablet) 400 mg PO Q6H PRN PRN Reason: Pain, Moderate (Pain Scale 4-6 Last Admin: 01/02/22 10:42 Dose: 400 mg Documented by: Lamotrigine (Lamotrigine 100 Mg Tablet) 200 mg PO BID [facility] Last Admin: 01/02/22 08:39 Dose: 200 mg Documented by: Latanoprost (Latanoprost 0.005 % Ophth No 2.5 Ml Drops) 1 drop EYE-BOTH BEDTIME [facility] Last Admin: 01/01/22 21:25 Dose: 1 drop Documented by: Lidocaine (Lidocaine 4 % Patch Adh..Patch) 1 patch TRANSDERMA DAILY [facility]; Protocol Last Admin: 01/02/22 08:43 Dose: Not Given Documented by: Lisinopril (Lisinopril 40 Mg Tablet) 40 mg PO DAILY [facility]; Protocol Last Admin: 01/02/22 08:39 Dose: 40 mg Documented by: Lorazepam (Lorazepam 0.5 Mg Tablet) 0.5 mg PO Q8H PRN PRN Reason: Anxiety Last Admin: 01/02/22 16:09 Dose: 0.5 mg Documented by: Magnesium Hydroxide (Milk Of Magnesia 30 Ml Oral.Susp) 30 ml PO Q72H PRN PRN Reason: Constipation Last Admin: 12/12/21 10:20 Dose: 30 ml Documented by: Magnesium Hydroxide (Milk Of Magnesia 30 Ml Oral.Susp) 30 ml PO DAILY PRN PRN Reason: Constipation Melatonin (Melatonin 3 Mg Tablet) 6 mg PO BEDTIME [facility] Last Admin: 01/01/22 21:25 Dose: 6 mg Documented by: Multivitamins/Vitamin C (Multivitamin Tablet) 1 tab PO DAILY [facility] Last Admin: 01/02/22 08:39 Dose: 1 tab Documented by: Nortriptyline HCl (Nortriptyline Hcl 25 Mg Capsule) 100 mg PO BEDTIME [facility] Last Admin: 01/01/22 21:25 Dose: 100 mg Documented by: Nystatin (Nystatin Cream 15 Gm Tube) 1 appl TOPICAL BID [facility]; Protocol Last Admin: 01/02/22 08:44 Dose: Not Given Documented by: Polyethylene Glycol (Polyethylene Glycol 3350 17 Gm Powd.Pack) 17 gm PO DAILY PRN PRN Reason: Constipation Last Admin: 12/22/21 21:39 Dose: 17 gm Documented by: Polyethylene Glycol (Polyethylene Glycol 3350 17 Gm Powd.Pack) 17 gm PO DAILY@1600 [facility] Last Admin: 01/02/22 14:16 Dose: 17 gm Documented by: Pramipexole Dihydrochloride (Pramipexole Di-Hcl 0.125 Mg Tablet) 0.125 mg PO TID [facility] Last Admin: 01/02/22 14:16 Dose: 0.125 mg Documented by: Psyllium Hydrophilic Mucilloid (Psyllium Seed 3.4 Gm Powd.Pack) 3.4 gm PO DAILY [facility] Last Admin: 01/02/22 08:38 Dose: 3.4 gm Documented by: Quetiapine Fumarate (Quetiapine Fumarate 25 Mg Tablet) 25 mg PO BID PRN PRN Reason: Anxiety Last Admin: 12/27/21 13:02 Dose: 25 mg Documented by: Quetiapine Fumarate (Quetiapine Fumarate 50 Mg Tablet) 50 mg PO BEDTIME [facility] Last Admin: 01/01/22 21:26 Dose: 50 mg Documented by: Quetiapine Fumarate (Quetiapine Fumarate 25 Mg Tablet) 25 mg PO DAILY@1300 [facility] Last Admin: 01/02/22 14:16 Dose: 25 mg Documented by: Trazodone HCl (Trazodone Hcl 50 Mg Tablet) 50 mg PO BEDTIME PRN PRN Reason: Insomnia Last Admin: 12/31/21 01:28 Dose: 50 mg Documented by: Trazodone HCl (Trazodone Hcl 100 Mg Tablet) 200 mg PO BEDTIME [facility] Last Admin: 01/01/22 21:26 Dose: 200 mg Documented by: Vitamin D (Cholecalciferol (Vitamin D3) 10 Mcg Tablet) 20 mcg PO DAILY [facility] Last Admin: 01/02/22 08:38 Dose: 20 mcg Documented by: Allergies Allergies Allergy/AdvReac Type Severity Reaction Status Date / Time fentanyl [FENTANYL] Allergy Intermediate unknown Verified 05/22/21 11:43 Assessment & Plan Assessment & Plan (1) Major depressive disorder, recurrent severe without psychotic features: Status: Acute Code(s): F33.2 - Major depressive disorder, recurrent severe without psychotic features Assessment and Plan: stop trintellix cont nortrip seroquel ck re 1sponse check for si limited coping encourage alt way to look and cope with things encourage aftercare IT grp (2) Cognitive and neurobehavioral dysfunction following brain injury: Status: Acute Code(s): G31.89 - Other specified degenerative diseases of nervous system; F09 - Unspecified mental disorder due to known physiological condition; S06.9X9S - Unspecified intracranial injury with loss of consciousness of unspecified duration, sequela Assessment and Plan: Thegabapentin lamictal (3) HTN (hypertension): Status: Acute Code(s): I10 - Essential (primary) hypertension Plan Middle-aged male with a long history of mood symptoms with several admissions into the hospital for suicidal ideation. He also carries a diagnosis of TBI, historically he used to be highly functional but at this moment his wheelchair bounded and very angry at times. Plan 1. Continue same medications. 2. Pamelor 100 mg HS Nortriptilyne level on 34 on 50 mg/day. 3. Discussed a suitable discharge planning for the patient I spent minutes with the patient and/or on the patient floor today, greater than?50% of which was spent counseling/coordinating care. Reason for contiued inpatient stay Substantial Risk for: inability to function, rapid decompensation and med/psych decompensation
[2022-01-02] MEDS: Latanoprost 0.005 % Ophth Sol 2.5 ML DROPS 1 DROP EYE-BOTH (20:26)
[2022-01-02 20:27] VITALS: BP 121/59; PULSE 73; RESP 18; TEMP 36.4; O2SAT 97
[2022-01-02] MEDS: Nystatin Cream 15 GM TUBE 1 APPL TOPICAL (21:58)
[2022-01-02] MEDS: Melatonin 3 MG TABLET 6 MG PO (22:00)
[2022-01-02] MEDS: Nortriptyline HCl 25 MG CAPSULE 100 MG PO (22:01)
[2022-01-02] MEDS: QUEtiapine Fumarate 50 MG TABLET PO (22:01)
[2022-01-02] MEDS: traZODone HCL 100 MG TABLET 200 MG PO (22:03)
[2022-01-02] MEDS: Hydrocortisone 1 % Cream 28.35 GM TUBE 1 APPL TOPICAL (22:06)
[2022-01-03] MEDS: traZODone HCL 50 MG TABLET PO (01:01)
[2022-01-03 06:00] VITALS: BP 138/75; PULSE 76; RESP 16; TEMP 36.5; O2SAT 96
[2022-01-03] MEDS: hydroCHLOROthiazide 12.5 MG TABLET PO (08:09)
[2022-01-03] MEDS: Finasteride 5 MG TABLET PO (08:09)
[2022-01-03] MEDS: Ibuprofen 400 MG TABLET PO ×2 (08:10→18:31)
[2022-01-03] MEDS: lamoTRIgine 100 MG TABLET 200 MG PO ×2 (08:10→21:25)
[2022-01-03] MEDS: Gabapentin 400 MG CAPSULE PO ×2 (08:10→21:21)
[2022-01-03] MEDS: Pramipexole Di-HCL 0.125 MG TABLET PO ×2 (08:11→21:24)
[2022-01-03] MEDS: amLODIPine Besylate 10 MG TABLET PO (08:11)
[2022-01-03] MEDS: Multivitamin TABLET 1 TAB PO (08:11)
[2022-01-03] MEDS: Cholecalciferol (Vitamin D3) 10 MCG TABLET 20 MCG PO (08:11)
[2022-01-03] MEDS: lisinopriL 40 MG TABLET PO (08:11)
[2022-01-03] MEDS: Nystatin Cream 15 GM TUBE 1 APPL TOPICAL ×2 (08:11→21:14)
[2022-01-03] MEDS: Hydrocortisone 1 % Cream 28.35 GM TUBE 1 APPL TOPICAL ×2 (08:11→21:14)
[2022-01-03] MEDS: QUEtiapine Fumarate 25 MG TABLET PO (13:18)
--- NOTE | 2022-01-03 15:21 | HO.PSYCHPN ---
Subjective Subjective Date of Service: 01/03/22 Reason For Visit: SI Subjective Notes: Conditional Voluntary Interim History: the nursing staff reported the patient has been very disappointed sings the longterm does not want him back and he goes to subacute rehab due to his deconditioning. He has been compliant with treatment. Today we interview him with the bilingual social worker and explained him that we are going to apply to several skin nursing facilities but if he could be able to regain the ability to transfer himself without help, most likely the longterm will be able to take him back and he agreed on the plan. Mental Status Exam Mental Status Exam Patient Appearance: Well Grooomed Patient Orientation: Person Patient Behavior: Cooperative Mood Description: Depressed Affect Description: Constricted Patient Cognition Impaired: No Ability to Follow Directions: Good Speech Pattern: Clear Memory Description: Intact Delusions: Not Present Thought Process: Linear Thought Content: positive for Circumstantial Judgement: Fair Diagnostics Vital Signs (24Hr): Vital Signs - 24 hr 01/02/22 20:27 01/03/22 06:00 Temperature 97.5 F 97.7 F Pulse Rate 73 76 Respiratory Rate 18 16 Blood Pressure 121/59 L 138/75 Pulse Oximetry 97 96 BMI result Body Mass Index 30.5 Labs Results: 12/09/21 19:15 12/09/21 19:15 Medications Medications Current Medications Acetaminophen (Acetaminophen 325 Mg Tablet) 650 mg PO Q6H PRN PRN Reason: Pain (Scale Score 1-3) Last Admin: 12/30/21 18:03 Dose: 650 mg Documented by: Al Hydroxide/Mg Hydroxide (Magnesium Hydrox/Alum Hydrox 30 Ml Oral.Susp) 30 ml PO Q6H PRN PRN Reason: Heartburn/Nausea Last Admin: 12/16/21 14:54 Dose: 30 ml Documented by: Albuterol Sulfate (Albuterol Sulfate 90 Mcg 8 Gm Inhaler) 2 puff INHALE Q6H PRN PRN Reason: Shortness Of Breath Last Admin: 12/24/21 21:33 Dose: 2 puff Documented by: Amlodipine Besylate (Amlodipine Besylate 10 Mg Tablet) 10 mg PO DAILY [facility]; Protocol Last Admin: 01/03/22 08:11 Dose: 10 mg Documented by: Artificial Tears (Artificial Tears 15 Ml Drops) 1 drop EYE-BOTH Q1H PRN PRN Reason: Dry Eye(S) Docusate Sodium (Docusate Sodium 100 Mg Capsule) 100 mg PO BID PRN PRN Reason: Constipation Last Admin: 12/23/21 12:44 Dose: 100 mg Documented by: Finasteride (Finasteride 5 Mg Tablet) 5 mg PO DAILY [facility] Last Admin: 01/03/22 08:09 Dose: 5 mg Documented by: Gabapentin (Gabapentin 400 Mg Capsule) 400 mg PO TID [facility] Last Admin: 01/03/22 08:10 Dose: 400 mg Documented by: Hydrochlorothiazide (Hydrochlorothiazide 12.5 Mg Tablet) 12.5 mg PO DAILY [facility]; Protocol Last Admin: 01/03/22 08:09 Dose: 12.5 mg Documented by: Hydrocortisone (Hydrocortisone 1 % Cream 28.35 Gm Tube) 1 appl TOPICAL BID [facility]; Protocol Last Admin: 01/03/22 08:11 Dose: 1 appl Documented by: Hydroxyzine HCl (Hydroxyzine Hcl 25 Mg Tablet) 25 mg PO BEDTIME PRN PRN Reason: Anxiety Last Admin: 12/18/21 03:17 Dose: 25 mg Documented by: Ibuprofen (Ibuprofen 400 Mg Tablet) 400 mg PO Q6H PRN PRN Reason: Pain, Moderate (Pain Scale 4-6 Last Admin: 01/03/22 08:10 Dose: 400 mg Documented by: Lamotrigine (Lamotrigine 100 Mg Tablet) 200 mg PO BID [facility] Last Admin: 01/03/22 08:10 Dose: 200 mg Documented by: Latanoprost (Latanoprost 0.005 % Ophth No 2.5 Ml Drops) 1 drop EYE-BOTH BEDTIME [facility] Last Admin: 01/02/22 20:26 Dose: 1 drop Documented by: Lidocaine (Lidocaine 4 % Patch Adh..Patch) 1 patch TRANSDERMA DAILY [facility]; Protocol Last Admin: 01/03/22 10:18 Dose: Not Given Documented by: Lisinopril (Lisinopril 40 Mg Tablet) 40 mg PO DAILY [facility]; Protocol Last Admin: 01/03/22 08:11 Dose: 40 mg Documented by: Lorazepam (Lorazepam 0.5 Mg Tablet) 0.5 mg PO Q6H PRN PRN Reason: Anxiety Magnesium Hydroxide (Milk Of Magnesia 30 Ml Oral.Susp) 30 ml PO Q72H PRN PRN Reason: Constipation Last Admin: 12/12/21 10:20 Dose: 30 ml Documented by: Magnesium Hydroxide (Milk Of Magnesia 30 Ml Oral.Susp) 30 ml PO DAILY PRN PRN Reason: Constipation Melatonin (Melatonin 3 Mg Tablet) 6 mg PO BEDTIME [facility] Last Admin: 01/02/22 22:00 Dose: 6 mg Documented by: Multivitamins/Vitamin C (Multivitamin Tablet) 1 tab PO DAILY [facility] Last Admin: 01/03/22 08:11 Dose: 1 tab Documented by: Nortriptyline HCl (Nortriptyline Hcl 25 Mg Capsule) 100 mg PO BEDTIME [facility] Last Admin: 01/02/22 22:01 Dose: 100 mg Documented by: Nystatin (Nystatin Cream 15 Gm Tube) 1 appl TOPICAL BID [facility]; Protocol Last Admin: 01/03/22 08:11 Dose: 1 appl Documented by: Polyethylene Glycol (Polyethylene Glycol 3350 17 Gm Powd.Pack) 17 gm PO DAILY PRN PRN Reason: Constipation Last Admin: 12/22/21 21:39 Dose: 17 gm Documented by: Polyethylene Glycol (Polyethylene Glycol 3350 17 Gm Powd.Pack) 17 gm PO DAILY@1600 [facility] Last Admin: 01/02/22 14:16 Dose: 17 gm Documented by: Pramipexole Dihydrochloride (Pramipexole Di-Hcl 0.125 Mg Tablet) 0.125 mg PO TID [facility] Last Admin: 01/03/22 08:11 Dose: 0.125 mg Documented by: Psyllium Hydrophilic Mucilloid (Psyllium Seed 3.4 Gm Powd.Pack) 3.4 gm PO DAILY [facility] Last Admin: 01/03/22 08:09 Dose: 3.4 gm Documented by: Quetiapine Fumarate (Quetiapine Fumarate 25 Mg Tablet) 25 mg PO BID PRN PRN Reason: Anxiety Last Admin: 12/27/21 13:02 Dose: 25 mg Documented by: Quetiapine Fumarate (Quetiapine Fumarate 50 Mg Tablet) 50 mg PO BEDTIME [facility] Last Admin: 01/02/22 22:01 Dose: 50 mg Documented by: Quetiapine Fumarate (Quetiapine Fumarate 25 Mg Tablet) 25 mg PO DAILY@1300 [facility] Last Admin: 01/03/22 13:18 Dose: 25 mg Documented by: Trazodone HCl (Trazodone Hcl 50 Mg Tablet) 50 mg PO BEDTIME PRN PRN Reason: Insomnia Last Admin: 01/03/22 01:01 Dose: 50 mg Documented by: Trazodone HCl (Trazodone Hcl 50 Mg Tablet) 250 mg PO BEDTIME [facility] Vitamin D (Cholecalciferol (Vitamin D3) 10 Mcg Tablet) 20 mcg PO DAILY [facility] Last Admin: 01/03/22 08:11 Dose: 20 mcg Documented by: Allergies Allergies Allergy/AdvReac Type Severity Reaction Status Date / Time fentanyl [FENTANYL] Allergy Intermediate unknown Verified 05/22/21 11:43 Assessment & Plan Assessment & Plan (1) Major depressive disorder, recurrent severe without psychotic features: Status: Acute Code(s): F33.2 - Major depressive disorder, recurrent severe without psychotic features Assessment and Plan: stop trintellix cont nortrip seroquel ck re 1sponse check for si limited coping encourage alt way to look and cope with things encourage aftercare IT grp (2) Cognitive and neurobehavioral dysfunction following brain injury: Status: Acute Code(s): G31.89 - Other specified degenerative diseases of nervous system; F09 - Unspecified mental disorder due to known physiological condition; S06.9X9S - Unspecified intracranial injury with loss of consciousness of unspecified duration, sequela Assessment and Plan: Thegabapentin lamictal (3) HTN (hypertension): Status: Acute Code(s): I10 - Essential (primary) hypertension Plan Middle-aged male with a long history of mood symptoms with several admissions into the hospital for suicidal ideation. He also carries a diagnosis of TBI, historically he used to be highly functional but at this moment his wheelchair bounded and very angry at times. Plan 1. Continue same medications. 2. Pamelor 100 mg HS Nortriptilyne level on 34 on 50 mg/day. 3. Discussed a suitable discharge planning for the patient I spent minutes with the patient and/or on the patient floor today, greater than?50% of which was spent counseling/coordinating care. Reason for contiued inpatient stay Substantial Risk for: harm to self, inability to function, rapid decompensation and med/psych decompensation
[2022-01-03] MEDS: polyethylene glycoL 3350 17 GM POWD.PACK PO (15:53)
[2022-01-03] MEDS: LORazepam 0.5 MG TABLET PO ×2 (16:07→21:29)
[2022-01-03] MEDS: Latanoprost 0.005 % Ophth Sol 2.5 ML DROPS 1 DROP EYE-BOTH (21:12)
[2022-01-03] MEDS: Nortriptyline HCl 25 MG CAPSULE 100 MG PO (21:22)
[2022-01-03] MEDS: Melatonin 3 MG TABLET 6 MG PO (21:23)
[2022-01-03 21:25] VITALS: BP 114/62; PULSE 72; RESP 18; TEMP 36.7; O2SAT 97
[2022-01-03] MEDS: QUEtiapine Fumarate 50 MG TABLET PO (21:25)
[2022-01-03] MEDS: traZODone HCL 100 MG TABLET 250 MG PO (21:26)
[2022-01-04] MEDS: Gabapentin 400 MG CAPSULE PO ×4 (00:06→20:37)
[2022-01-04] MEDS: Pramipexole Di-HCL 0.125 MG TABLET PO ×4 (00:06→20:38)
[2022-01-04 06:00] VITALS: BP 112/66; PULSE 79; TEMP 36.2; O2SAT 96
[2022-01-04] MEDS: Finasteride 5 MG TABLET PO (08:34)
[2022-01-04] MEDS: Cholecalciferol (Vitamin D3) 10 MCG TABLET 20 MCG PO (08:34)
[2022-01-04] MEDS: lisinopriL 40 MG TABLET PO (08:35)
[2022-01-04] MEDS: lamoTRIgine 100 MG TABLET 200 MG PO ×2 (08:35→20:42)
[2022-01-04] MEDS: Multivitamin TABLET 1 TAB PO (08:35)
[2022-01-04] MEDS: hydroCHLOROthiazide 12.5 MG TABLET PO (08:35)
[2022-01-04] MEDS: amLODIPine Besylate 10 MG TABLET PO (08:35)
[2022-01-04] MEDS: Nystatin Cream 15 GM TUBE 1 APPL TOPICAL (08:42)
--- NOTE | 2022-01-04 11:58 | HO.PSYCHPN ---
Subjective Subjective Date of Service: 01/04/22 Reason For Visit: SI Interim History: pt found seated in wheelchair by nursing station, with TV view. states he had some med changes yesterday and feels his meds are all squared away for the time being. he states his plan today is to practice sit-stands to improve his physical conditioning. no other complaints or requests. states his SI has resolved. per staff, slept well. c/o right hip pain. Mental Status Exam Mental Status Exam Narrative: disheveled. cooperative. no PMA/PMR. speech incr amount, nml rate, latency, tone. thoughts linear and logical. affect constricted. denies SI. no HI/AVH expressed. Diagnostics Vital Signs (24Hr): Vital Signs - 24 hr 01/03/22 21:25 01/04/22 06:00 Temperature 98.1 F 97.1 F Pulse Rate 72 79 Respiratory Rate 18 Blood Pressure 114/62 112/66 Pulse Oximetry 97 96 BMI result Body Mass Index 30.5 Labs Results: 12/09/21 19:15 12/09/21 19:15 Medications Medications Current Medications Acetaminophen (Acetaminophen 325 Mg Tablet) 650 mg PO Q6H PRN PRN Reason: Pain (Scale Score 1-3) Last Admin: 12/30/21 18:03 Dose: 650 mg Documented by: Al Hydroxide/Mg Hydroxide (Magnesium Hydrox/Alum Hydrox 30 Ml Oral.Susp) 30 ml PO Q6H PRN PRN Reason: Heartburn/Nausea Last Admin: 12/16/21 14:54 Dose: 30 ml Documented by: Albuterol Sulfate (Albuterol Sulfate 90 Mcg 8 Gm Inhaler) 2 puff INHALE Q6H PRN PRN Reason: Shortness Of Breath Last Admin: 12/24/21 21:33 Dose: 2 puff Documented by: Amlodipine Besylate (Amlodipine Besylate 10 Mg Tablet) 10 mg PO DAILY [facility]; Protocol Last Admin: 01/04/22 08:35 Dose: 10 mg Documented by: Artificial Tears (Artificial Tears 15 Ml Drops) 1 drop EYE-BOTH Q1H PRN PRN Reason: Dry Eye(S) Docusate Sodium (Docusate Sodium 100 Mg Capsule) 100 mg PO BID PRN PRN Reason: Constipation Last Admin: 12/23/21 12:44 Dose: 100 mg Documented by: Finasteride (Finasteride 5 Mg Tablet) 5 mg PO DAILY [facility] Last Admin: 01/04/22 08:34 Dose: 5 mg Documented by: Gabapentin (Gabapentin 400 Mg Capsule) 400 mg PO TID [facility] Last Admin: 01/04/22 08:35 Dose: 400 mg Documented by: Hydrochlorothiazide (Hydrochlorothiazide 12.5 Mg Tablet) 12.5 mg PO DAILY [facility]; Protocol Last Admin: 01/04/22 08:35 Dose: 12.5 mg Documented by: Hydrocortisone (Hydrocortisone 1 % Cream 28.35 Gm Tube) 1 appl TOPICAL BID [facility]; Protocol Last Admin: 01/04/22 08:41 Dose: Not Given Documented by: Hydroxyzine HCl (Hydroxyzine Hcl 25 Mg Tablet) 25 mg PO BEDTIME PRN PRN Reason: Anxiety Last Admin: 12/18/21 03:17 Dose: 25 mg Documented by: Ibuprofen (Ibuprofen 400 Mg Tablet) 400 mg PO Q6H PRN PRN Reason: Pain, Moderate (Pain Scale 4-6 Last Admin: 01/03/22 18:31 Dose: 400 mg Documented by: Lamotrigine (Lamotrigine 100 Mg Tablet) 200 mg PO BID [facility] Last Admin: 01/04/22 08:35 Dose: 200 mg Documented by: Latanoprost (Latanoprost 0.005 % Ophth No 2.5 Ml Drops) 1 drop EYE-BOTH BEDTIME [facility] Last Admin: 01/03/22 21:12 Dose: 1 drop Documented by: Lidocaine (Lidocaine 4 % Patch Adh..Patch) 1 patch TRANSDERMA DAILY [facility]; Protocol Last Admin: 01/04/22 08:41 Dose: Not Given Documented by: Lisinopril (Lisinopril 40 Mg Tablet) 40 mg PO DAILY [facility]; Protocol Last Admin: 01/04/22 08:35 Dose: 40 mg Documented by: Lorazepam (Lorazepam 0.5 Mg Tablet) 0.5 mg PO Q6H PRN PRN Reason: Anxiety Last Admin: 01/03/22 21:29 Dose: 0.5 mg Documented by: Magnesium Hydroxide (Milk Of Magnesia 30 Ml Oral.Susp) 30 ml PO Q72H PRN PRN Reason: Constipation Last Admin: 12/12/21 10:20 Dose: 30 ml Documented by: Magnesium Hydroxide (Milk Of Magnesia 30 Ml Oral.Susp) 30 ml PO DAILY PRN PRN Reason: Constipation Melatonin (Melatonin 3 Mg Tablet) 6 mg PO BEDTIME [facility] Last Admin: 01/03/22 21:23 Dose: 6 mg Documented by: Multivitamins/Vitamin C (Multivitamin Tablet) 1 tab PO DAILY [facility] Last Admin: 01/04/22 08:35 Dose: 1 tab Documented by: Nortriptyline HCl (Nortriptyline Hcl 25 Mg Capsule) 100 mg PO BEDTIME [facility] Last Admin: 01/03/22 21:22 Dose: 100 mg Documented by: Nystatin (Nystatin Cream 15 Gm Tube) 1 appl TOPICAL BID [facility]; Protocol Last Admin: 01/04/22 08:42 Dose: 1 appl Documented by: Polyethylene Glycol (Polyethylene Glycol 3350 17 Gm Powd.Pack) 17 gm PO DAILY PRN PRN Reason: Constipation Last Admin: 12/22/21 21:39 Dose: 17 gm Documented by: Polyethylene Glycol (Polyethylene Glycol 3350 17 Gm Powd.Pack) 17 gm PO DAILY@1600 [facility] Last Admin: 01/03/22 15:53 Dose: 17 gm Documented by: Pramipexole Dihydrochloride (Pramipexole Di-Hcl 0.125 Mg Tablet) 0.125 mg PO TID [facility] Last Admin: 01/04/22 08:35 Dose: 0.125 mg Documented by: Psyllium Hydrophilic Mucilloid (Psyllium Seed 3.4 Gm Powd.Pack) 3.4 gm PO DAILY [facility] Last Admin: 01/04/22 08:35 Dose: 3.4 gm Documented by: Quetiapine Fumarate (Quetiapine Fumarate 25 Mg Tablet) 25 mg PO BID PRN PRN Reason: Anxiety Last Admin: 12/27/21 13:02 Dose: 25 mg Documented by: Quetiapine Fumarate (Quetiapine Fumarate 50 Mg Tablet) 50 mg PO BEDTIME [facility] Last Admin: 01/03/22 21:25 Dose: 50 mg Documented by: Quetiapine Fumarate (Quetiapine Fumarate 25 Mg Tablet) 25 mg PO DAILY@1300 [facility] Last Admin: 01/03/22 13:18 Dose: 25 mg Documented by: Trazodone HCl (Trazodone Hcl 50 Mg Tablet) 50 mg PO BEDTIME PRN PRN Reason: Insomnia Last Admin: 01/03/22 01:01 Dose: 50 mg Documented by: Trazodone HCl (Trazodone Hcl 100 Mg Tablet) 250 mg PO BEDTIME [facility] Last Admin: 01/03/22 21:26 Dose: 250 mg Documented by: Vitamin D (Cholecalciferol (Vitamin D3) 10 Mcg Tablet) 20 mcg PO DAILY [facility] Last Admin: 01/04/22 08:34 Dose: 20 mcg Documented by: Allergies Allergies Allergy/AdvReac Type Severity Reaction Status Date / Time fentanyl [FENTANYL] Allergy Intermediate unknown Verified 05/22/21 11:43 Assessment & Plan Assessment & Plan (1) Major depressive disorder, recurrent severe without psychotic features: Status: Acute Code(s): F33.2 - Major depressive disorder, recurrent severe without psychotic features Assessment and Plan: stop trintellix cont nortrip seroquel ck re 1sponse check for si limited coping encourage alt way to look and cope with things encourage aftercare IT grp (2) Cognitive and neurobehavioral dysfunction following brain injury: Status: Acute Code(s): G31.89 - Other specified degenerative diseases of nervous system; F09 - Unspecified mental disorder due to known physiological condition; S06.9X9S - Unspecified intracranial injury with loss of consciousness of unspecified duration, sequela Assessment and Plan: Thegabapentin lamictal (3) HTN (hypertension): Status: Acute Code(s): I10 - Essential (primary) hypertension Plan Middle-aged male with a long history of mood symptoms with several admissions into the hospital for suicidal ideation. He also carries a diagnosis of TBI, historically he used to be highly functional but at this moment his wheelchair bounded and very angry at times. Plan 1. Continue same medications. 2. Pamelor 100 mg HS Nortriptilyne level on 34 on 50 mg/day. 3. Discussed a suitable discharge planning for the patient I spent minutes with the patient and/or on the patient floor today, greater than?50% of which was spent counseling/coordinating care. Reason for contiued inpatient stay Substantial Risk for: inability to function and rapid decompensation
[2022-01-04] MEDS: QUEtiapine Fumarate 25 MG TABLET PO (12:57)
[2022-01-04] MEDS: Acetaminophen 325 MG TABLET 650 MG PO (12:57)
[2022-01-04] MEDS: polyethylene glycoL 3350 17 GM POWD.PACK PO (15:53)
[2022-01-04 18:00] VITALS: BP 119/68; PULSE 72; RESP 18; TEMP 36.5; O2SAT 96
[2022-01-04] MEDS: Ibuprofen 400 MG TABLET PO (19:40)
[2022-01-04] MEDS: Latanoprost 0.005 % Ophth Sol 2.5 ML DROPS 1 DROP EYE-BOTH (20:36)
[2022-01-04] MEDS: QUEtiapine Fumarate 50 MG TABLET PO (20:38)
[2022-01-04] MEDS: traZODone HCL 100 MG TABLET 250 MG PO (20:39)
[2022-01-04] MEDS: Nortriptyline HCl 25 MG CAPSULE 100 MG PO (20:40)
[2022-01-04] MEDS: Hydrocortisone 1 % Cream 28.35 GM TUBE 1 APPL TOPICAL (20:48)
[2022-01-04] MEDS: Melatonin 3 MG TABLET 6 MG PO (20:54)
[2022-01-05 06:00] VITALS: BP 121/90; PULSE 76; TEMP 36.3; O2SAT 96
[2022-01-05] MEDS: Acetaminophen 325 MG TABLET 650 MG PO ×2 (08:18→16:32)
[2022-01-05] MEDS: lisinopriL 40 MG TABLET PO (08:19)
[2022-01-05] MEDS: amLODIPine Besylate 10 MG TABLET PO (08:19)
[2022-01-05] MEDS: Finasteride 5 MG TABLET PO (08:19)
[2022-01-05] MEDS: Cholecalciferol (Vitamin D3) 10 MCG TABLET 20 MCG PO (08:19)
[2022-01-05] MEDS: lamoTRIgine 100 MG TABLET 200 MG PO ×2 (08:19→21:59)
[2022-01-05] MEDS: Gabapentin 400 MG CAPSULE PO ×3 (08:19→21:59)
[2022-01-05] MEDS: Multivitamin TABLET 1 TAB PO (08:19)
[2022-01-05] MEDS: Pramipexole Di-HCL 0.125 MG TABLET PO ×3 (08:19→21:59)
[2022-01-05] MEDS: hydroCHLOROthiazide 12.5 MG TABLET PO (08:19)
--- NOTE | 2022-01-05 11:37 | P.PNPSI_ITS ---
Subjective Subjective Date of Service: 01/05/22 Reason For Visit: SI Interim History: pt seen in milieu participating in group. c/o right hip pain, asking for xray. states that 2 he felt and heard a pop and then he had sudden pain from his hip to his knee. pain to knee has resolved but hip pain remains, around 7-8/10. states otherwise his mood is much better than at admission and he has no other complaints or requests. per staff, c/o right hip pain, getting tylenol for it. had an episode of dizziness this morning. no other issues or concerns. Mental Status Exam Mental Status Exam Narrative: disheveled. cooperative. no PMA/PMR. speech incr amount, nml rate, latency, tone. thoughts linear and logical. affect constricted. no SI/HI/AVH expressed. Diagnostics Vital Signs (24Hr): Vital Signs - 24 hr 01/04/22 18:00 Temperature 97.7 F Pulse Rate 72 Respiratory Rate 18 Blood Pressure 119/68 Pulse Oximetry 96 BMI result Body Mass Index 30.5 Labs Results: 12/09/21 19:15 12/09/21 19:15 Medications Medications Current Medications Acetaminophen (Acetaminophen 325 Mg Tablet) 650 mg PO Q6H PRN PRN Reason: Pain (Scale Score 1-3) Last Admin: 01/05/22 08:18 Dose: 650 mg Documented by: Al Hydroxide/Mg Hydroxide (Magnesium Hydrox/Alum Hydrox 30 Ml Oral.Susp) 30 ml PO Q6H PRN PRN Reason: Heartburn/Nausea Last Admin: 12/16/21 14:54 Dose: 30 ml Documented by: Albuterol Sulfate (Albuterol Sulfate 90 Mcg 8 Gm Inhaler) 2 puff INHALE Q6H PRN PRN Reason: Shortness Of Breath Last Admin: 12/24/21 21:33 Dose: 2 puff Documented by: Amlodipine Besylate (Amlodipine Besylate 10 Mg Tablet) 10 mg PO DAILY [facility]; Protocol Last Admin: 01/05/22 08:19 Dose: 10 mg Documented by: Artificial Tears (Artificial Tears 15 Ml Drops) 1 drop EYE-BOTH Q1H PRN PRN Reason: Dry Eye(S) Docusate Sodium (Docusate Sodium 100 Mg Capsule) 100 mg PO BID PRN PRN Reason: Constipation Last Admin: 12/23/21 12:44 Dose: 100 mg Documented by: Finasteride (Finasteride 5 Mg Tablet) 5 mg PO DAILY [facility] Last Admin: 01/05/22 08:19 Dose: 5 mg Documented by: Gabapentin (Gabapentin 400 Mg Capsule) 400 mg PO TID [facility] Last Admin: 01/05/22 08:19 Dose: 400 mg Documented by: Hydrochlorothiazide (Hydrochlorothiazide 12.5 Mg Tablet) 12.5 mg PO DAILY [facility]; Protocol Last Admin: 01/05/22 08:19 Dose: 12.5 mg Documented by: Hydrocortisone (Hydrocortisone 1 % Cream 28.35 Gm Tube) 1 appl TOPICAL BID [facility]; Protocol Last Admin: 01/05/22 08:22 Dose: Not Given Documented by: Hydroxyzine HCl (Hydroxyzine Hcl 25 Mg Tablet) 25 mg PO BEDTIME PRN PRN Reason: Anxiety Last Admin: 12/18/21 03:17 Dose: 25 mg Documented by: Ibuprofen (Ibuprofen 400 Mg Tablet) 400 mg PO Q6H PRN PRN Reason: Pain, Moderate (Pain Scale 4-6 Last Admin: 01/04/22 19:40 Dose: 400 mg Documented by: Lamotrigine (Lamotrigine 100 Mg Tablet) 200 mg PO BID [facility] Last Admin: 01/05/22 08:19 Dose: 200 mg Documented by: Latanoprost (Latanoprost 0.005 % Ophth No 2.5 Ml Drops) 1 drop EYE-BOTH BEDTIME [facility] Last Admin: 01/04/22 20:36 Dose: 1 drop Documented by: Lidocaine (Lidocaine 4 % Patch Adh..Patch) 1 patch TRANSDERMA DAILY [facility]; Protocol Last Admin: 01/05/22 08:19 Dose: Not Given Documented by: Lisinopril (Lisinopril 40 Mg Tablet) 40 mg PO DAILY [facility]; Protocol Last Admin: 01/05/22 08:19 Dose: 40 mg Documented by: Lorazepam (Lorazepam 0.5 Mg Tablet) 0.5 mg PO Q6H PRN PRN Reason: Anxiety Last Admin: 01/03/22 21:29 Dose: 0.5 mg Documented by: Magnesium Hydroxide (Milk Of Magnesia 30 Ml Oral.Susp) 30 ml PO Q72H PRN PRN Reason: Constipation Last Admin: 12/12/21 10:20 Dose: 30 ml Documented by: Magnesium Hydroxide (Milk Of Magnesia 30 Ml Oral.Susp) 30 ml PO DAILY PRN PRN Reason: Constipation Melatonin (Melatonin 3 Mg Tablet) 6 mg PO BEDTIME [facility] Last Admin: 01/04/22 20:54 Dose: 6 mg Documented by: Multivitamins/Vitamin C (Multivitamin Tablet) 1 tab PO DAILY [facility] Last Admin: 01/05/22 08:19 Dose: 1 tab Documented by: Nortriptyline HCl (Nortriptyline Hcl 25 Mg Capsule) 100 mg PO BEDTIME [facility]PL[facility] Last Admin: 01/04/22 20:40 Dose: 100 mg Documented by: Nystatin (Nystatin Cream 15 Gm Tube) 1 appl TOPICAL BID [facility]; Protocol Last Admin: 01/05/22 08:23 Dose: Not Given Documented by: Polyethylene Glycol (Polyethylene Glycol 3350 17 Gm Powd.Pack) 17 gm PO DAILY PRN PRN Reason: Constipation Last Admin: 12/22/21 21:39 Dose: 17 gm Documented by: Polyethylene Glycol (Polyethylene Glycol 3350 17 Gm Powd.Pack) 17 gm PO DAILY@1600 [facility] Last Admin: 01/04/22 15:53 Dose: 17 gm Documented by: Pramipexole Dihydrochloride (Pramipexole Di-Hcl 0.125 Mg Tablet) 0.125 mg PO TID [facility] Last Admin: 01/05/22 08:19 Dose: 0.125 mg Documented by: Psyllium Hydrophilic Mucilloid (Psyllium Seed 3.4 Gm Powd.Pack) 3.4 gm PO DAILY [facility] Last Admin: 01/05/22 08:19 Dose: 3.4 gm Documented by: Quetiapine Fumarate (Quetiapine Fumarate 25 Mg Tablet) 25 mg PO BID PRN PRN Reason: Anxiety Last Admin: 12/27/21 13:02 Dose: 25 mg Documented by: Quetiapine Fumarate (Quetiapine Fumarate 50 Mg Tablet) 50 mg PO BEDTIME [facility]PL[facility] Last Admin: 01/04/22 20:38 Dose: 50 mg Documented by: Quetiapine Fumarate (Quetiapine Fumarate 25 Mg Tablet) 25 mg PO DAILY@1300 [facility] Last Admin: 01/04/22 12:57 Dose: 25 mg Documented by: Trazodone HCl (Trazodone Hcl 50 Mg Tablet) 50 mg PO BEDTIME PRN PRN Reason: Insomnia Last Admin: 01/03/22 01:01 Dose: 50 mg Documented by: Trazodone HCl (Trazodone Hcl 100 Mg Tablet) 250 mg PO BEDTIME [facility]PL[facility] Last Admin: 01/04/22 20:39 Dose: 250 mg Documented by: Vitamin D (Cholecalciferol (Vitamin D3) 10 Mcg Tablet) 20 mcg PO DAILY [facility] Last Admin: 01/05/22 08:19 Dose: 20 mcg Documented by: Allergies Allergies Allergy/AdvReac Type Severity Reaction Status Date / Time fentanyl [FENTANYL] Allergy Intermediate unknown Verified 05/22/21 11:43 Assessment & Plan Assessment & Plan (1) Major depressive disorder, recurrent severe without psychotic features: Status: Acute Code(s): F33.2 - Major depressive disorder, recurrent severe without psychotic features Assessment and Plan: stop trintellix cont nortrip seroquel ck re 1sponse check for si limited coping encourage alt way to look and cope with things encourage aftercare IT grp (2) Cognitive and neurobehavioral dysfunction following brain injury: Status: Acute Code(s): G31.89 - Other specified degenerative diseases of nervous system; F09 - Unspecified mental disorder due to known physiological condition; S06.9X9S - Unspecified intracranial injury with loss of consciousness of unspecified duration, sequela Assessment and Plan: Thegabapentin lamictal (3) HTN (hypertension): Status: Acute Code(s): I10 - Essential (primary) hypertension Plan Middle-aged male with a long history of mood symptoms with several admissions into the hospital for suicidal ideation. He also carries a diagnosis of TBI, historically he used to be highly functional but at this moment his wheelchair bounded and very angry at times. Plan 1. Continue same medications. 2. Pamelor 100 mg HS Nortriptilyne level on 34 on 50 mg/day. 3. Discussed a suitable discharge planning for the patient 01/05: right hip xray for c/o 01/03 pop and pain since. I spent minutes with the patient and/or on the patient floor today, greater than?50% of which was spent counseling/coordinating care. Reason for contiued inpatient stay Substantial Risk for: inability to function and rapid decompensation
[2022-01-05] MEDS: QUEtiapine Fumarate 25 MG TABLET PO (13:00)
[2022-01-05] MEDS: Ibuprofen 400 MG TABLET PO ×2 (13:00→21:56)
[2022-01-05 18:00] VITALS: BP 137/73; PULSE 86; RESP 18; TEMP 36.6; O2SAT 98
[2022-01-05] MEDS: Nortriptyline HCl 25 MG CAPSULE 100 MG PO (21:56)
[2022-01-05] MEDS: QUEtiapine Fumarate 50 MG TABLET PO (21:57)
[2022-01-05] MEDS: traZODone HCL 100 MG TABLET 250 MG PO (21:59)
[2022-01-05] MEDS: Melatonin 3 MG TABLET 6 MG PO (22:00)
[2022-01-05] MEDS: Latanoprost 0.005 % Ophth Sol 2.5 ML DROPS 1 DROP EYE-BOTH (22:00)
[2022-01-05] MEDS: Hydrocortisone 1 % Cream 28.35 GM TUBE 1 APPL TOPICAL (22:00)
[2022-01-06] MEDS: LORazepam 0.5 MG TABLET PO (05:05)
[2022-01-06] MEDS: Cholecalciferol (Vitamin D3) 10 MCG TABLET 20 MCG PO (08:32)
[2022-01-06] MEDS: Pramipexole Di-HCL 0.125 MG TABLET PO ×3 (08:32→21:18)
[2022-01-06] MEDS: lisinopriL 40 MG TABLET PO (08:32)
[2022-01-06] MEDS: hydroCHLOROthiazide 12.5 MG TABLET PO (08:32)
[2022-01-06] MEDS: lamoTRIgine 100 MG TABLET 200 MG PO ×2 (08:32→21:17)
[2022-01-06] MEDS: Gabapentin 400 MG CAPSULE PO ×3 (08:33→21:17)
[2022-01-06] MEDS: Multivitamin TABLET 1 TAB PO (08:33)
[2022-01-06] MEDS: amLODIPine Besylate 10 MG TABLET PO (08:33)
[2022-01-06] MEDS: Finasteride 5 MG TABLET PO (08:33)
[2022-01-06 08:38] VITALS: BP 149/78; PULSE 82; RESP 16; TEMP 36.2; O2SAT 96
[2022-01-06] MEDS: Ibuprofen 400 MG TABLET PO ×2 (09:30→16:01)
[2022-01-06] MEDS: QUEtiapine Fumarate 25 MG TABLET PO (12:30)
[2022-01-06] MEDS: polyethylene glycoL 3350 17 GM POWD.PACK PO (16:01)
--- NOTE | 2022-01-06 20:00 | HO.PSYCHPN ---
Subjective Subjective Date of Service: 01/06/22 Reason For Visit: SI Interim History: pt continues to feel well emotionally. c/o hip pain, somewhat flummoxed to hear there are no abnormalities on the xray. reports pain continues. no other requests or complaints. per staff, med-compliant. c/o lumbar and hip pain. hip xray WNL. Mental Status Exam Mental Status Exam Narrative: disheveled. cooperative. no PMA/PMR. speech incr amount, nml rate, latency, tone. thoughts linear and logical. affect constricted. no SI/HI/AVH expressed. Diagnostics Vital Signs (24Hr): Vital Signs - 24 hr 01/06/22 08:38 Temperature 97.1 F Pulse Rate 82 Respiratory Rate 16 Blood Pressure 149/78 H Pulse Oximetry 96 BMI result Body Mass Index 30.5 Labs Results: 12/09/21 19:15 12/09/21 19:15 Imaging Radiology Impressions: ITS Impressions Hip X-Ray 01/05/22 16:00 IMPRESSION: Healed old fracture right femoral neck. The femoral neck screws that had been present in 2010 has been removed. No acute finding. Medications Medications Current Medications Acetaminophen (Acetaminophen 325 Mg Tablet) 650 mg PO Q6H PRN PRN Reason: Pain (Scale Score 1-3) Last Admin: 01/05/22 16:32 Dose: 650 mg Documented by: Al Hydroxide/Mg Hydroxide (Magnesium Hydrox/Alum Hydrox 30 Ml Oral.Susp) 30 ml PO Q6H PRN PRN Reason: Heartburn/Nausea Last Admin: 12/16/21 14:54 Dose: 30 ml Documented by: Albuterol Sulfate (Albuterol Sulfate 90 Mcg 8 Gm Inhaler) 2 puff INHALE Q6H PRN PRN Reason: Shortness Of Breath Last Admin: 12/24/21 21:33 Dose: 2 puff Documented by: Amlodipine Besylate (Amlodipine Besylate 10 Mg Tablet) 10 mg PO DAILY [facility]; Protocol Last Admin: 01/06/22 08:33 Dose: 10 mg Documented by: Artificial Tears (Artificial Tears 15 Ml Drops) 1 drop EYE-BOTH Q1H PRN PRN Reason: Dry Eye(S) Docusate Sodium (Docusate Sodium 100 Mg Capsule) 100 mg PO BID PRN PRN Reason: Constipation Last Admin: 12/23/21 12:44 Dose: 100 mg Documented by: Finasteride (Finasteride 5 Mg Tablet) 5 mg PO DAILY [facility] Last Admin: 01/06/22 08:33 Dose: 5 mg Documented by: Gabapentin (Gabapentin 400 Mg Capsule) 400 mg PO TID [facility] Last Admin: 01/06/22 15:07 Dose: 400 mg Documented by: Hydrochlorothiazide (Hydrochlorothiazide 12.5 Mg Tablet) 12.5 mg PO DAILY [facility]; Protocol Last Admin: 01/06/22 08:32 Dose: 12.5 mg Documented by: Hydrocortisone (Hydrocortisone 1 % Cream 28.35 Gm Tube) 1 appl TOPICAL BID [facility]; Protocol Last Admin: 01/06/22 11:10 Dose: Not Given Documented by: Hydroxyzine HCl (Hydroxyzine Hcl 25 Mg Tablet) 25 mg PO BEDTIME PRN PRN Reason: Anxiety Last Admin: 12/18/21 03:17 Dose: 25 mg Documented by: Ibuprofen (Ibuprofen 400 Mg Tablet) 400 mg PO Q6H PRN PRN Reason: Pain, Moderate (Pain Scale 4-6 Last Admin: 01/06/22 16:01 Dose: 400 mg Documented by: Lamotrigine (Lamotrigine 100 Mg Tablet) 200 mg PO BID [facility] Last Admin: 01/06/22 08:32 Dose: 200 mg Documented by: Latanoprost (Latanoprost 0.005 % Ophth No 2.5 Ml Drops) 1 drop EYE-BOTH BEDTIME [facility] Last Admin: 01/05/22 22:00 Dose: 1 drop Documented by: Lidocaine (Lidocaine 4 % Patch Adh..Patch) 1 patch TRANSDERMA DAILY [facility]; Protocol Last Admin: 01/06/22 11:10 Dose: Not Given Documented by: Lisinopril (Lisinopril 40 Mg Tablet) 40 mg PO DAILY [facility]; Protocol Last Admin: 01/06/22 08:32 Dose: 40 mg Documented by: Lorazepam (Lorazepam 0.5 Mg Tablet) 0.5 mg PO Q6H PRN PRN Reason: Anxiety Last Admin: 01/06/22 05:05 Dose: 0.5 mg Documented by: Magnesium Hydroxide (Milk Of Magnesia 30 Ml Oral.Susp) 30 ml PO Q72H PRN PRN Reason: Constipation Last Admin: 12/12/21 10:20 Dose: 30 ml Documented by: Magnesium Hydroxide (Milk Of Magnesia 30 Ml Oral.Susp) 30 ml PO DAILY PRN PRN Reason: Constipation Melatonin (Melatonin 3 Mg Tablet) 6 mg PO BEDTIME [facility] Last Admin: 01/05/22 22:00 Dose: 6 mg Documented by: Multivitamins/Vitamin C (Multivitamin Tablet) 1 tab PO DAILY [facility] Last Admin: 01/06/22 08:33 Dose: 1 tab Documented by: Nortriptyline HCl (Nortriptyline Hcl 25 Mg Capsule) 100 mg PO BEDTIME [facility] Last Admin: 01/05/22 21:56 Dose: 100 mg Documented by: Nystatin (Nystatin Cream 15 Gm Tube) 1 appl TOPICAL BID [facility]; Protocol Last Admin: 01/06/22 11:10 Dose: Not Given Documented by: Polyethylene Glycol (Polyethylene Glycol 3350 17 Gm Powd.Pack) 17 gm PO DAILY PRN PRN Reason: Constipation Last Admin: 12/22/21 21:39 Dose: 17 gm Documented by: Polyethylene Glycol (Polyethylene Glycol 3350 17 Gm Powd.Pack) 17 gm PO DAILY@1600 [facility] Last Admin: 01/06/22 16:01 Dose: 17 gm Documented by: Pramipexole Dihydrochloride (Pramipexole Di-Hcl 0.125 Mg Tablet) 0.125 mg PO TID [facility] Last Admin: 01/06/22 15:07 Dose: 0.125 mg Documented by: Psyllium Hydrophilic Mucilloid (Psyllium Seed 3.4 Gm Powd.Pack) 3.4 gm PO DAILY [facility] Last Admin: 01/06/22 11:11 Dose: Not Given Documented by: Quetiapine Fumarate (Quetiapine Fumarate 25 Mg Tablet) 25 mg PO BID PRN PRN Reason: Anxiety Last Admin: 12/27/21 13:02 Dose: 25 mg Documented by: Quetiapine Fumarate (Quetiapine Fumarate 50 Mg Tablet) 50 mg PO BEDTIME [facility] Last Admin: 01/05/22 21:57 Dose: 50 mg Documented by: Quetiapine Fumarate (Quetiapine Fumarate 25 Mg Tablet) 25 mg PO DAILY@1300 [facility] Last Admin: 01/06/22 12:30 Dose: 25 mg Documented by: Trazodone HCl (Trazodone Hcl 50 Mg Tablet) 50 mg PO BEDTIME PRN PRN Reason: Insomnia Last Admin: 01/03/22 01:01 Dose: 50 mg Documented by: Trazodone HCl (Trazodone Hcl 100 Mg Tablet) 250 mg PO BEDTIME [facility] Last Admin: 01/05/22 21:59 Dose: 250 mg Documented by: Vitamin D (Cholecalciferol (Vitamin D3) 10 Mcg Tablet) 20 mcg PO DAILY [facility] Last Admin: 01/06/22 08:32 Dose: 20 mcg Documented by: Allergies Allergies Allergy/AdvReac Type Severity Reaction Status Date / Time fentanyl [FENTANYL] Allergy Intermediate unknown Verified 05/22/21 11:43 Assessment & Plan Assessment & Plan (1) Major depressive disorder, recurrent severe without psychotic features: Status: Acute Code(s): F33.2 - Major depressive disorder, recurrent severe without psychotic features Assessment and Plan: stop trintellix cont nortrip seroquel ck re 1sponse check for si limited coping encourage alt way to look and cope with things encourage aftercare IT grp (2) Cognitive and neurobehavioral dysfunction following brain injury: Status: Acute Code(s): G31.89 - Other specified degenerative diseases of nervous system; F09 - Unspecified mental disorder due to known physiological condition; S06.9X9S - Unspecified intracranial injury with loss of consciousness of unspecified duration, sequela Assessment and Plan: Thegabapentin lamictal (3) HTN (hypertension): Status: Acute Code(s): I10 - Essential (primary) hypertension Plan Middle-aged male with a long history of mood symptoms with several admissions into the hospital for suicidal ideation. He also carries a diagnosis of TBI, historically he used to be highly functional but at this moment his wheelchair bounded and very angry at times. Plan 1. Continue same medications. 2. Pamelor 100 mg HS Nortriptilyne level on 34 on 50 mg/day. 3. Discussed a suitable discharge planning for the patient 01/05: right hip xray for c/o 01/03 pop and pain since. 01/06: xray non-acute. I spent minutes with the patient and/or on the patient floor today, greater than?50% of which was spent counseling/coordinating care. Reason for contiued inpatient stay Substantial Risk for: inability to function and rapid decompensation
[2022-01-06] MEDS: Latanoprost 0.005 % Ophth Sol 2.5 ML DROPS 1 DROP EYE-BOTH (21:17)
[2022-01-06] MEDS: Melatonin 3 MG TABLET 6 MG PO (21:17)
[2022-01-06] MEDS: Hydrocortisone 1 % Cream 28.35 GM TUBE 1 APPL TOPICAL (21:17)
[2022-01-06] MEDS: QUEtiapine Fumarate 50 MG TABLET PO (21:18)
[2022-01-06] MEDS: Nortriptyline HCl 25 MG CAPSULE 100 MG PO (21:18)
[2022-01-06] MEDS: traZODone HCL 100 MG TABLET 250 MG PO (21:19)
[2022-01-06 21:52] VITALS: BP 116/61; PULSE 75; RESP 16; TEMP 36.2; O2SAT 95
[2022-01-07] MEDS: Acetaminophen 325 MG TABLET 650 MG PO ×3 (02:54→21:51)
[2022-01-07 06:00] VITALS: BP 138/72; PULSE 79; RESP 16; TEMP 36.2; O2SAT 98
[2022-01-07] MEDS: Cholecalciferol (Vitamin D3) 10 MCG TABLET 20 MCG PO (08:35)
[2022-01-07] MEDS: lamoTRIgine 100 MG TABLET 200 MG PO ×2 (08:35→21:29)
[2022-01-07] MEDS: Finasteride 5 MG TABLET PO (08:35)
[2022-01-07] MEDS: Gabapentin 400 MG CAPSULE PO ×3 (08:36→21:29)
[2022-01-07] MEDS: amLODIPine Besylate 10 MG TABLET PO (08:36)
[2022-01-07] MEDS: lisinopriL 40 MG TABLET PO (08:36)
[2022-01-07] MEDS: hydroCHLOROthiazide 12.5 MG TABLET PO (08:36)
[2022-01-07] MEDS: Multivitamin TABLET 1 TAB PO (08:36)
[2022-01-07] MEDS: Pramipexole Di-HCL 0.125 MG TABLET PO ×3 (08:36→21:31)
[2022-01-07] MEDS: Ibuprofen 400 MG TABLET PO (10:06)
--- NOTE | 2022-01-07 12:14 | HO.PSYCHPN ---
Subjective Subjective Date of Service: 01/07/22 Reason For Visit: SI Subjective Notes: Conditional Voluntary Interim History: The nursing staff reports no changes in his mental status. He has been complaining of hip pain and he was x-rayed last Thursday. The social worker health services reported that they had a meeting with the DD is director and apparently he will be able to go back to his nursing home only he is able to do his own care without assistance. At this moment, they are looking for halfway placement. On interview, the patient denies new symptoms he reports that he is feeling very sad and depressed since he is not able to go back to his home. Mental Status Exam Mental Status Exam Patient Appearance: Well Grooomed Patient Orientation: Person Level of Consciousness: Awake Patient Behavior: Cooperative Mood Description: Depressed Affect Description: Constricted Ability to Follow Directions: Good Speech Pattern: Clear Memory Description: Intact Hallucinations: None Delusions: Not Present Thought Process: Linear Thought Content: positive for Circumstantial Judgement: Fair Diagnostics Vital Signs (24Hr): Vital Signs - 24 hr 01/06/22 21:52 01/07/22 06:00 Temperature 97.1 F 97.2 F Pulse Rate 75 79 Respiratory Rate 16 16 Blood Pressure 116/61 138/72 Pulse Oximetry 95 98 BMI result Body Mass Index 30.5 Labs Results: 12/09/21 19:15 12/09/21 19:15 Imaging Radiology Impressions: ITS Impressions Hip X-Ray 01/05/22 16:00 IMPRESSION: Healed old fracture right femoral neck. The femoral neck screws that had been present in 2010 has been removed. No acute finding. Medications Medications Current Medications Acetaminophen (Acetaminophen 325 Mg Tablet) 650 mg PO Q6H PRN PRN Reason: Pain (Scale Score 1-3) Last Admin: 01/07/22 02:54 Dose: 650 mg Documented by: Al Hydroxide/Mg Hydroxide (Magnesium Hydrox/Alum Hydrox 30 Ml Oral.Susp) 30 ml PO Q6H PRN PRN Reason: Heartburn/Nausea Last Admin: 12/16/21 14:54 Dose: 30 ml Documented by: Albuterol Sulfate (Albuterol Sulfate 90 Mcg 8 Gm Inhaler) 2 puff INHALE Q6H PRN PRN Reason: Shortness Of Breath Last Admin: 12/24/21 21:33 Dose: 2 puff Documented by: Amlodipine Besylate (Amlodipine Besylate 10 Mg Tablet) 10 mg PO DAILY [facility]; Protocol Last Admin: 01/07/22 08:36 Dose: 10 mg Documented by: Artificial Tears (Artificial Tears 15 Ml Drops) 1 drop EYE-BOTH Q1H PRN PRN Reason: Dry Eye(S) Docusate Sodium (Docusate Sodium 100 Mg Capsule) 100 mg PO BID PRN PRN Reason: Constipation Last Admin: 12/23/21 12:44 Dose: 100 mg Documented by: Finasteride (Finasteride 5 Mg Tablet) 5 mg PO DAILY [facility] Last Admin: 01/07/22 08:35 Dose: 5 mg Documented by: Gabapentin (Gabapentin 400 Mg Capsule) 400 mg PO TID [facility] Last Admin: 01/07/22 08:36 Dose: 400 mg Documented by: Hydrochlorothiazide (Hydrochlorothiazide 12.5 Mg Tablet) 12.5 mg PO DAILY [facility]; Protocol Last Admin: 01/07/22 08:36 Dose: 12.5 mg Documented by: Hydrocortisone (Hydrocortisone 1 % Cream 28.35 Gm Tube) 1 appl TOPICAL BID [facility]; Protocol Last Admin: 01/07/22 09:06 Dose: Not Given Documented by: Hydroxyzine HCl (Hydroxyzine Hcl 25 Mg Tablet) 25 mg PO BEDTIME PRN PRN Reason: Anxiety Last Admin: 12/18/21 03:17 Dose: 25 mg Documented by: Ibuprofen (Ibuprofen 400 Mg Tablet) 400 mg PO Q6H PRN PRN Reason: Pain, Moderate (Pain Scale 4-6 Last Admin: 01/07/22 10:06 Dose: 400 mg Documented by: Lamotrigine (Lamotrigine 100 Mg Tablet) 200 mg PO BID [facility] Last Admin: 01/07/22 08:35 Dose: 200 mg Documented by: Latanoprost (Latanoprost 0.005 % Ophth No 2.5 Ml Drops) 1 drop EYE-BOTH BEDTIME [facility] Last Admin: 01/06/22 21:17 Dose: 1 drop Documented by: Lidocaine (Lidocaine 4 % Patch Adh..Patch) 1 patch TRANSDERMA DAILY [facility]; Protocol Last Admin: 01/07/22 09:06 Dose: Not Given Documented by: Lisinopril (Lisinopril 40 Mg Tablet) 40 mg PO DAILY [facility]; Protocol Last Admin: 01/07/22 08:36 Dose: 40 mg Documented by: Lorazepam (Lorazepam 0.5 Mg Tablet) 0.5 mg PO Q6H PRN PRN Reason: Anxiety Last Admin: 01/06/22 05:05 Dose: 0.5 mg Documented by: Magnesium Hydroxide (Milk Of Magnesia 30 Ml Oral.Susp) 30 ml PO Q72H PRN PRN Reason: Constipation Last Admin: 12/12/21 10:20 Dose: 30 ml Documented by: Magnesium Hydroxide (Milk Of Magnesia 30 Ml Oral.Susp) 30 ml PO DAILY PRN PRN Reason: Constipation Melatonin (Melatonin 3 Mg Tablet) 6 mg PO BEDTIME [facility] Last Admin: 01/06/22 21:17 Dose: 6 mg Documented by: Multivitamins/Vitamin C (Multivitamin Tablet) 1 tab PO DAILY [facility] Last Admin: 01/07/22 08:36 Dose: 1 tab Documented by: Nortriptyline HCl (Nortriptyline Hcl 25 Mg Capsule) 100 mg PO BEDTIME [facility] Last Admin: 01/06/22 21:18 Dose: 100 mg Documented by: Nystatin (Nystatin Cream 15 Gm Tube) 1 appl TOPICAL BID [facility]; Protocol Last Admin: 01/07/22 09:06 Dose: Not Given Documented by: Polyethylene Glycol (Polyethylene Glycol 3350 17 Gm Powd.Pack) 17 gm PO DAILY PRN PRN Reason: Constipation Last Admin: 12/22/21 21:39 Dose: 17 gm Documented by: Polyethylene Glycol (Polyethylene Glycol 3350 17 Gm Powd.Pack) 17 gm PO DAILY@1600 [facility] Last Admin: 01/06/22 16:01 Dose: 17 gm Documented by: Pramipexole Dihydrochloride (Pramipexole Di-Hcl 0.125 Mg Tablet) 0.125 mg PO TID [facility] Last Admin: 01/07/22 08:36 Dose: 0.125 mg Documented by: Psyllium Hydrophilic Mucilloid (Psyllium Seed 3.4 Gm Powd.Pack) 3.4 gm PO DAILY [facility] Last Admin: 01/07/22 08:35 Dose: 3.4 gm Documented by: Quetiapine Fumarate (Quetiapine Fumarate 25 Mg Tablet) 25 mg PO BID PRN PRN Reason: Anxiety Last Admin: 12/27/21 13:02 Dose: 25 mg Documented by: Quetiapine Fumarate (Quetiapine Fumarate 50 Mg Tablet) 50 mg PO BEDTIME [facility] Last Admin: 01/06/22 21:18 Dose: 50 mg Documented by: Quetiapine Fumarate (Quetiapine Fumarate 25 Mg Tablet) 25 mg PO DAILY@1300 [facility] Last Admin: 01/06/22 12:30 Dose: 25 mg Documented by: Trazodone HCl (Trazodone Hcl 50 Mg Tablet) 50 mg PO BEDTIME PRN PRN Reason: Insomnia Last Admin: 01/03/22 01:01 Dose: 50 mg Documented by: Trazodone HCl (Trazodone Hcl 100 Mg Tablet) 250 mg PO BEDTIME [facility] Last Admin: 01/06/22 21:19 Dose: 250 mg Documented by: Vitamin D (Cholecalciferol (Vitamin D3) 10 Mcg Tablet) 20 mcg PO DAILY [facility] Last Admin: 01/07/22 08:35 Dose: 20 mcg Documented by: Allergies Allergies Allergy/AdvReac Type Severity Reaction Status Date / Time fentanyl [FENTANYL] Allergy Intermediate unknown Verified 05/22/21 11:43 Assessment & Plan Assessment & Plan (1) Major depressive disorder, recurrent severe without psychotic features: Status: Acute Code(s): F33.2 - Major depressive disorder, recurrent severe without psychotic features Assessment and Plan: stop trintellix cont nortrip seroquel ck re 1sponse check for si limited coping encourage alt way to look and cope with things encourage aftercare IT grp (2) Cognitive and neurobehavioral dysfunction following brain injury: Status: Acute Code(s): G31.89 - Other specified degenerative diseases of nervous system; F09 - Unspecified mental disorder due to known physiological condition; S06.9X9S - Unspecified intracranial injury with loss of consciousness of unspecified duration, sequela Assessment and Plan: Thegabapentin lamictal (3) HTN (hypertension): Status: Acute Code(s): I10 - Essential (primary) hypertension Plan Middle-aged male with a long history of mood symptoms with several admissions into the hospital for suicidal ideation. He also carries a diagnosis of TBI, historically he used to be highly functional but at this moment his wheelchair bounded and very angry at times. Plan 1. Continue same medications. 2. Pamelor 100 mg HS Nortriptilyne level on 34 on 50 mg/day. 3. Discussed a suitable discharge planning for the patient I spent minutes with the patient and/or on the patient floor today, greater than?50% of which was spent counseling/coordinating care. Reason for contiued inpatient stay Substantial Risk for: inability to function, rapid decompensation and med/psych decompensation
[2022-01-07] MEDS: QUEtiapine Fumarate 25 MG TABLET PO (13:59)
[2022-01-07] MEDS: polyethylene glycoL 3350 17 GM POWD.PACK PO (14:52)
[2022-01-07 20:30] VITALS: BP 110/59; PULSE 72; RESP 18; TEMP 36.4; O2SAT 97
[2022-01-07] MEDS: Hydrocortisone 1 % Cream 28.35 GM TUBE 1 APPL TOPICAL (21:29)
[2022-01-07] MEDS: Melatonin 3 MG TABLET 6 MG PO (21:30)
[2022-01-07] MEDS: Latanoprost 0.005 % Ophth Sol 2.5 ML DROPS 1 DROP EYE-BOTH (21:30)
[2022-01-07] MEDS: Nortriptyline HCl 25 MG CAPSULE 100 MG PO (21:31)
[2022-01-07] MEDS: Nystatin Cream 15 GM TUBE 1 APPL TOPICAL (21:31)
[2022-01-07] MEDS: QUEtiapine Fumarate 50 MG TABLET PO (21:31)
[2022-01-07] MEDS: traZODone HCL 100 MG TABLET 250 MG PO (21:32)
[2022-01-08] MEDS: LORazepam 0.5 MG TABLET PO (01:00)
[2022-01-08 07:40] VITALS: BP 106/60; PULSE 72; RESP 18; TEMP 36.2; O2SAT 98
[2022-01-08 08:30] VITALS: BP 117/60; PULSE 74
[2022-01-08] MEDS: hydroCHLOROthiazide 12.5 MG TABLET PO (08:31)
[2022-01-08] MEDS: lamoTRIgine 100 MG TABLET 200 MG PO ×2 (08:31→21:29)
[2022-01-08] MEDS: amLODIPine Besylate 10 MG TABLET PO (08:31)
[2022-01-08] MEDS: Gabapentin 400 MG CAPSULE PO ×3 (08:31→21:29)
[2022-01-08] MEDS: lisinopriL 40 MG TABLET PO (08:31)
[2022-01-08] MEDS: Cholecalciferol (Vitamin D3) 10 MCG TABLET 20 MCG PO (08:31)
[2022-01-08] MEDS: Finasteride 5 MG TABLET PO (08:32)
[2022-01-08] MEDS: Pramipexole Di-HCL 0.125 MG TABLET PO ×3 (08:32→21:30)
[2022-01-08] MEDS: Multivitamin TABLET 1 TAB PO (08:32)
[2022-01-08] MEDS: QUEtiapine Fumarate 25 MG TABLET PO (14:11)
--- NOTE | 2022-01-08 14:43 | PC.NURSE ---
Patient went with [facility] and other staff to the third floor to work on transfers. Patient used vertical grab bar to pull to stand pivot and sit on toilet Independently. Patient was also able to use grab bar to stand and pivot back to wheelchair with no assist. Patient reported no complaints of pain.
[2022-01-08] MEDS: polyethylene glycoL 3350 17 GM POWD.PACK PO (15:41)
--- NOTE | 2022-01-08 16:00 | HO.PSYCHPN ---
Subjective Subjective Date of Service: 01/08/22 Reason For Visit: SI Subjective Notes: Conditional Voluntary Interim History: The nursing staff reported that he has been more cooperative with care. On interview, no changes on mental status Mental Status Exam Mental Status Exam Patient Appearance: Appropriate Patient Orientation: Person and Situation Level of Consciousness: Awake Patient Behavior: Cooperative Mood Description: Constricted Affect Description: Constricted Patient Cognition Impaired: No Ability to Follow Directions: Good Speech Pattern: Clear Hallucinations: None Delusions: Not Present Thought Process: Linear Thought Content: positive for Circumstantial Judgement: Fair Diagnostics Vital Signs (24Hr): Vital Signs - 24 hr 01/07/22 20:30 01/08/22 07:40 01/08/22 08:30 Temperature 97.5 F 97.1 F Pulse Rate 72 72 74 Respiratory Rate 18 18 Blood Pressure 110/59 L 106/60 117/60 Pulse Oximetry 97 98 BMI result Body Mass Index 30.5 Labs Results: 12/09/21 19:15 12/09/21 19:15 Imaging Radiology Impressions: ITS Impressions Hip X-Ray 01/05/22 16:00 IMPRESSION: Healed old fracture right femoral neck. The femoral neck screws that had been present in 2010 has been removed. No acute finding. Medications Medications Current Medications Acetaminophen (Acetaminophen 325 Mg Tablet) 650 mg PO Q6H PRN PRN Reason: Pain (Scale Score 1-3) Last Admin: 01/07/22 21:51 Dose: 650 mg Documented by: Al Hydroxide/Mg Hydroxide (Magnesium Hydrox/Alum Hydrox 30 Ml Oral.Susp) 30 ml PO Q6H PRN PRN Reason: Heartburn/Nausea Last Admin: 12/16/21 14:54 Dose: 30 ml Documented by: Albuterol Sulfate (Albuterol Sulfate 90 Mcg 8 Gm Inhaler) 2 puff INHALE Q6H PRN PRN Reason: Shortness Of Breath Last Admin: 12/24/21 21:33 Dose: 2 puff Documented by: Amlodipine Besylate (Amlodipine Besylate 10 Mg Tablet) 10 mg PO DAILY [facility]; Protocol Last Admin: 01/08/22 08:31 Dose: 10 mg Documented by: Artificial Tears (Artificial Tears 15 Ml Drops) 1 drop EYE-BOTH Q1H PRN PRN Reason: Dry Eye(S) Docusate Sodium (Docusate Sodium 100 Mg Capsule) 100 mg PO BID PRN PRN Reason: Constipation Last Admin: 12/23/21 12:44 Dose: 100 mg Documented by: Finasteride (Finasteride 5 Mg Tablet) 5 mg PO DAILY [facility] Last Admin: 01/08/22 08:32 Dose: 5 mg Documented by: Gabapentin (Gabapentin 400 Mg Capsule) 400 mg PO TID [facility] Last Admin: 01/08/22 14:11 Dose: 400 mg Documented by: Hydrochlorothiazide (Hydrochlorothiazide 12.5 Mg Tablet) 12.5 mg PO DAILY [facility]; Protocol Last Admin: 01/08/22 08:31 Dose: 12.5 mg Documented by: Hydrocortisone (Hydrocortisone 1 % Cream 28.35 Gm Tube) 1 appl TOPICAL BID [facility]; Protocol Last Admin: 01/08/22 08:32 Dose: Not Given Documented by: Hydroxyzine HCl (Hydroxyzine Hcl 25 Mg Tablet) 25 mg PO BEDTIME PRN PRN Reason: Anxiety Last Admin: 12/18/21 03:17 Dose: 25 mg Documented by: Ibuprofen (Ibuprofen 400 Mg Tablet) 400 mg PO Q6H PRN PRN Reason: Pain, Moderate (Pain Scale 4-6 Last Admin: 01/07/22 10:06 Dose: 400 mg Documented by: Lamotrigine (Lamotrigine 100 Mg Tablet) 200 mg PO BID [facility] Last Admin: 01/08/22 08:31 Dose: 200 mg Documented by: Latanoprost (Latanoprost 0.005 % Ophth No 2.5 Ml Drops) 1 drop EYE-BOTH BEDTIME [facility] Last Admin: 01/07/22 21:30 Dose: 1 drop Documented by: Lidocaine (Lidocaine 4 % Patch Adh..Patch) 1 patch TRANSDERMA DAILY [facility]; Protocol Last Admin: 01/08/22 08:32 Dose: Not Given Documented by: Lisinopril (Lisinopril 40 Mg Tablet) 40 mg PO DAILY [facility]; Protocol Last Admin: 01/08/22 08:31 Dose: 40 mg Documented by: Magnesium Hydroxide (Milk Of Magnesia 30 Ml Oral.Susp) 30 ml PO Q72H PRN PRN Reason: Constipation Last Admin: 12/12/21 10:20 Dose: 30 ml Documented by: Magnesium Hydroxide (Milk Of Magnesia 30 Ml Oral.Susp) 30 ml PO DAILY PRN PRN Reason: Constipation Melatonin (Melatonin 3 Mg Tablet) 6 mg PO BEDTIME [facility] Last Admin: 01/07/22 21:30 Dose: 6 mg Documented by: Multivitamins/Vitamin C (Multivitamin Tablet) 1 tab PO DAILY [facility] Last Admin: 01/08/22 08:32 Dose: 1 tab Documented by: Nortriptyline HCl (Nortriptyline Hcl 25 Mg Capsule) 100 mg PO BEDTIME [facility] Last Admin: 01/07/22 21:31 Dose: 100 mg Documented by: Nystatin (Nystatin Cream 15 Gm Tube) 1 appl TOPICAL BID [facility]; Protocol Last Admin: 01/08/22 08:32 Dose: Not Given Documented by: Polyethylene Glycol (Polyethylene Glycol 3350 17 Gm Powd.Pack) 17 gm PO DAILY PRN PRN Reason: Constipation Last Admin: 12/22/21 21:39 Dose: 17 gm Documented by: Polyethylene Glycol (Polyethylene Glycol 3350 17 Gm Powd.Pack) 17 gm PO DAILY@1600 [facility] Last Admin: 01/08/22 15:41 Dose: 17 gm Documented by: Pramipexole Dihydrochloride (Pramipexole Di-Hcl 0.125 Mg Tablet) 0.125 mg PO TID [facility] Last Admin: 01/08/22 14:11 Dose: 0.125 mg Documented by: Psyllium Hydrophilic Mucilloid (Psyllium Seed 3.4 Gm Powd.Pack) 3.4 gm PO DAILY [facility] Last Admin: 01/08/22 08:31 Dose: 3.4 gm Documented by: Quetiapine Fumarate (Quetiapine Fumarate 25 Mg Tablet) 25 mg PO BID PRN PRN Reason: Anxiety Last Admin: 12/27/21 13:02 Dose: 25 mg Documented by: Quetiapine Fumarate (Quetiapine Fumarate 50 Mg Tablet) 50 mg PO BEDTIME [facility] Last Admin: 01/07/22 21:31 Dose: 50 mg Documented by: Quetiapine Fumarate (Quetiapine Fumarate 25 Mg Tablet) 25 mg PO DAILY@1300 [facility] Last Admin: 01/08/22 14:11 Dose: 25 mg Documented by: Trazodone HCl (Trazodone Hcl 50 Mg Tablet) 50 mg PO BEDTIME PRN PRN Reason: Insomnia Last Admin: 01/03/22 01:01 Dose: 50 mg Documented by: Trazodone HCl (Trazodone Hcl 100 Mg Tablet) 250 mg PO BEDTIME [facility] Last Admin: 01/07/22 21:32 Dose: 250 mg Documented by: Vitamin D (Cholecalciferol (Vitamin D3) 10 Mcg Tablet) 20 mcg PO DAILY [facility] Last Admin: 01/08/22 08:31 Dose: 20 mcg Documented by: Allergies Allergies Allergy/AdvReac Type Severity Reaction Status Date / Time fentanyl [FENTANYL] Allergy Intermediate unknown Verified 05/22/21 11:43 Assessment & Plan Assessment & Plan (1) Major depressive disorder, recurrent severe without psychotic features: Status: Acute Code(s): F33.2 - Major depressive disorder, recurrent severe without psychotic features Assessment and Plan: stop trintellix cont nortrip seroquel ck re 1sponse check for si limited coping encourage alt way to look and cope with things encourage aftercare IT grp (2) Cognitive and neurobehavioral dysfunction following brain injury: Status: Acute Code(s): G31.89 - Other specified degenerative diseases of nervous system; F09 - Unspecified mental disorder due to known physiological condition; S06.9X9S - Unspecified intracranial injury with loss of consciousness of unspecified duration, sequela Assessment and Plan: Thegabapentin lamictal (3) HTN (hypertension): Status: Acute Code(s): I10 - Essential (primary) hypertension Plan Middle-aged male with a long history of mood symptoms with several admissions into the hospital for suicidal ideation. He also carries a diagnosis of TBI, historically he used to be highly functional but at this moment his wheelchair bounded and very angry at times. Plan 1. Continue same medications. 2. Pamelor 100 mg HS Nortriptilyne level on 34 on 50 mg/day. 3. Discussed a suitable discharge planning for the patient I spent minutes with the patient and/or on the patient floor today, greater than?50% of which was spent counseling/coordinating care. Reason for contiued inpatient stay Substantial Risk for: inability to function, rapid decompensation and med/psych decompensation
[2022-01-08 18:00] VITALS: BP 128/70; PULSE 75; RESP 16; TEMP 36.3; O2SAT 95
[2022-01-08] MEDS: Hydrocortisone 1 % Cream 28.35 GM TUBE 1 APPL TOPICAL (21:28)
[2022-01-08] MEDS: Latanoprost 0.005 % Ophth Sol 2.5 ML DROPS 1 DROP EYE-BOTH (21:29)
[2022-01-08] MEDS: Nortriptyline HCl 25 MG CAPSULE 100 MG PO (21:29)
[2022-01-08] MEDS: Melatonin 3 MG TABLET 6 MG PO (21:29)
[2022-01-08] MEDS: traZODone HCL 100 MG TABLET 250 MG PO (21:30)
[2022-01-08] MEDS: QUEtiapine Fumarate 50 MG TABLET PO (21:30)
[2022-01-08] MEDS: Ibuprofen 400 MG TABLET PO (21:30)
[2022-01-09 06:00] VITALS: BP 121/78; PULSE 88; TEMP 37.1; O2SAT 98
[2022-01-09] MEDS: Ibuprofen 400 MG TABLET PO ×2 (06:28→20:23)
[2022-01-09] MEDS: Cholecalciferol (Vitamin D3) 10 MCG TABLET 20 MCG PO (08:12)
[2022-01-09] MEDS: amLODIPine Besylate 10 MG TABLET PO (08:12)
[2022-01-09] MEDS: Multivitamin TABLET 1 TAB PO (08:13)
[2022-01-09] MEDS: hydroCHLOROthiazide 12.5 MG TABLET PO (08:13)
[2022-01-09] MEDS: lamoTRIgine 100 MG TABLET 200 MG PO ×2 (08:14→21:48)
[2022-01-09] MEDS: lisinopriL 40 MG TABLET PO (08:14)
[2022-01-09] MEDS: Finasteride 5 MG TABLET PO (08:14)
[2022-01-09] MEDS: Pramipexole Di-HCL 0.125 MG TABLET PO ×3 (08:14→21:49)
[2022-01-09] MEDS: Gabapentin 400 MG CAPSULE PO ×3 (08:14→21:48)
--- NOTE | 2022-01-09 10:34 | P.PNPSI_ITS ---
Subjective Subjective Date of Service: 01/09/22 Reason For Visit: SI Subjective Notes: Conditional Voluntary Healthcare Proxy: Yes Guardianship: No Medical Problems Affecting Mental Status: Yes Interim History: Patient seen in psychiatric follow-up. Had most recently been followed up by Dr. Alexander however given increase senses and I know the patient previously I am resuming his care. Patient has been intermittently despondent and often than angry and irritable. He has some condition maladaptive coping mechanisms. He was able to address these with me today. He is more motivated willing to engage in physical therapy. He had been making suicidal statements if he went back to the skilled nursing states he is better able to put things in perspective he is hoping not to go or require assisted facility. He is working with our staff to improve his physical functioning and transferring Medication Compliance: Yes Side effects from medications: No Attending Groups: Intermittent Review of Systems TBI hypertension unchanged Medical Review of Systems: unchanged Mental Status Exam Mental Status Exam Patient Appearance: Appropriate Patient Orientation: Person and Situation Level of Consciousness: Awake Patient Behavior: Cooperative Mood Description: Constricted, Depressed, Anxious and Labile Affect Description: Constricted, Angry and Apprehensive Patient Cognition Impaired: No Ability to Follow Directions: Good Speech Pattern: Clear Memory Description: Episodic Impaired and Immediate Intact Hallucinations: None Delusions: Not Present Thought Process: Linear Thought Content: positive for Obsessional Thoughts, positive for Circumstantial, negative for Suicidal Ideation (Denies active self-harm in this setting) or negative for Homicidal Ideation Depressive Symptoms: Increased Anxiety and Thoughts of /Suicide Judgement: Fair Diagnostics Vital Signs (24Hr): Vital Signs - 24 hr 01/08/22 18:00 Temperature 97.3 F Pulse Rate 75 Respiratory Rate 16 Blood Pressure 128/70 Pulse Oximetry 95 BMI result Body Mass Index 30.5 Labs Results: 12/09/21 19:15 12/09/21 19:15 Imaging Radiology Impressions: ITS Impressions Hip X-Ray 01/05/22 16:00 IMPRESSION: Healed old fracture right femoral neck. The femoral neck screws that had been present in 2010 has been removed. No acute finding. Medications Medications Current Medications Acetaminophen (Acetaminophen 325 Mg Tablet) 650 mg PO Q6H PRN PRN Reason: Pain (Scale Score 1-3) Last Admin: 01/07/22 21:51 Dose: 650 mg Documented by: Al Hydroxide/Mg Hydroxide (Magnesium Hydrox/Alum Hydrox 30 Ml Oral.Susp) 30 ml PO Q6H PRN PRN Reason: Heartburn/Nausea Last Admin: 12/16/21 14:54 Dose: 30 ml Documented by: Albuterol Sulfate (Albuterol Sulfate 90 Mcg 8 Gm Inhaler) 2 puff INHALE Q6H PRN PRN Reason: Shortness Of Breath Last Admin: 12/24/21 21:33 Dose: 2 puff Documented by: Amlodipine Besylate (Amlodipine Besylate 10 Mg Tablet) 10 mg PO DAILY [facility]; Protocol Last Admin: 01/09/22 08:12 Dose: 10 mg Documented by: Artificial Tears (Artificial Tears 15 Ml Drops) 1 drop EYE-BOTH Q1H PRN PRN Reason: Dry Eye(S) Docusate Sodium (Docusate Sodium 100 Mg Capsule) 100 mg PO BID PRN PRN Reason: Constipation Last Admin: 12/23/21 12:44 Dose: 100 mg Documented by: Finasteride (Finasteride 5 Mg Tablet) 5 mg PO DAILY [facility] Last Admin: 01/09/22 08:14 Dose: 5 mg Documented by: Gabapentin (Gabapentin 400 Mg Capsule) 400 mg PO TID [facility] Last Admin: 01/09/22 08:14 Dose: 400 mg Documented by: Hydrochlorothiazide (Hydrochlorothiazide 12.5 Mg Tablet) 12.5 mg PO DAILY [facility]; Protocol Last Admin: 01/09/22 08:13 Dose: 12.5 mg Documented by: Hydrocortisone (Hydrocortisone 1 % Cream 28.35 Gm Tube) 1 appl TOPICAL BID [facility]; Protocol Last Admin: 01/08/22 21:28 Dose: 1 appl Documented by: Hydroxyzine HCl (Hydroxyzine Hcl 25 Mg Tablet) 25 mg PO BEDTIME PRN PRN Reason: Anxiety Last Admin: 12/18/21 03:17 Dose: 25 mg Documented by: Ibuprofen (Ibuprofen 400 Mg Tablet) 400 mg PO Q6H PRN PRN Reason: Pain, Moderate (Pain Scale 4-6 Last Admin: 01/09/22 06:28 Dose: 400 mg Documented by: Lamotrigine (Lamotrigine 100 Mg Tablet) 200 mg PO BID [facility] Last Admin: 01/09/22 08:14 Dose: 200 mg Documented by: Latanoprost (Latanoprost 0.005 % Ophth No 2.5 Ml Drops) 1 drop EYE-BOTH BEDTIME [facility] Last Admin: 01/08/22 21:29 Dose: 1 drop Documented by: Lidocaine (Lidocaine 4 % Patch Adh..Patch) 1 patch TRANSDERMA DAILY [facility]; Protocol Last Admin: 01/08/22 08:32 Dose: Not Given Documented by: Lisinopril (Lisinopril 40 Mg Tablet) 40 mg PO DAILY [facility]; Protocol Last Admin: 01/09/22 08:14 Dose: 40 mg Documented by: Magnesium Hydroxide (Milk Of Magnesia 30 Ml Oral.Susp) 30 ml PO Q72H PRN PRN Reason: Constipation Last Admin: 12/12/21 10:20 Dose: 30 ml Documented by: Magnesium Hydroxide (Milk Of Magnesia 30 Ml Oral.Susp) 30 ml PO DAILY PRN PRN Reason: Constipation Melatonin (Melatonin 3 Mg Tablet) 6 mg PO BEDTIME [facility] Last Admin: 01/08/22 21:29 Dose: 6 mg Documented by: Multivitamins/Vitamin C (Multivitamin Tablet) 1 tab PO DAILY [facility] Last Admin: 01/09/22 08:13 Dose: 1 tab Documented by: Nortriptyline HCl (Nortriptyline Hcl 25 Mg Capsule) 100 mg PO BEDTIME [facility] Last Admin: 01/08/22 21:29 Dose: 100 mg Documented by: Nystatin (Nystatin Cream 15 Gm Tube) 1 appl TOPICAL BID [facility]; Protocol Last Admin: 01/08/22 21:34 Dose: Not Given Documented by: Polyethylene Glycol (Polyethylene Glycol 3350 17 Gm Powd.Pack) 17 gm PO DAILY PRN PRN Reason: Constipation Last Admin: 12/22/21 21:39 Dose: 17 gm Documented by: Polyethylene Glycol (Polyethylene Glycol 3350 17 Gm Powd.Pack) 17 gm PO DAILY@1600 [facility] Last Admin: 01/08/22 15:41 Dose: 17 gm Documented by: Pramipexole Dihydrochloride (Pramipexole Di-Hcl 0.125 Mg Tablet) 0.125 mg PO TID [facility] Last Admin: 01/09/22 08:14 Dose: 0.125 mg Documented by: Psyllium Hydrophilic Mucilloid (Psyllium Seed 3.4 Gm Powd.Pack) 3.4 gm PO DAILY [facility] Last Admin: 01/09/22 08:15 Dose: 3.4 gm Documented by: Quetiapine Fumarate (Quetiapine Fumarate 25 Mg Tablet) 25 mg PO BID PRN PRN Reason: Anxiety Last Admin: 12/27/21 13:02 Dose: 25 mg Documented by: Quetiapine Fumarate (Quetiapine Fumarate 50 Mg Tablet) 50 mg PO BEDTIME [facility] Last Admin: 01/08/22 21:30 Dose: 50 mg Documented by: Quetiapine Fumarate (Quetiapine Fumarate 25 Mg Tablet) 25 mg PO DAILY@1300 [facility] Last Admin: 01/08/22 14:11 Dose: 25 mg Documented by: Trazodone HCl (Trazodone Hcl 50 Mg Tablet) 50 mg PO BEDTIME PRN PRN Reason: Insomnia Last Admin: 01/03/22 01:01 Dose: 50 mg Documented by: Trazodone HCl (Trazodone Hcl 100 Mg Tablet) 250 mg PO BEDTIME [facility] Last Admin: 01/08/22 21:30 Dose: 250 mg Documented by: Vitamin D (Cholecalciferol (Vitamin D3) 10 Mcg Tablet) 20 mcg PO DAILY [facility] Last Admin: 01/09/22 08:12 Dose: 20 mcg Documented by: Allergies Allergies Allergy/AdvReac Type Severity Reaction Status Date / Time fentanyl [FENTANYL] Allergy Intermediate unknown Verified 05/22/21 11:43 Assessment & Plan Assessment & Plan (1) Major depressive disorder, recurrent severe without psychotic features: Status: Acute Code(s): F33.2 - Major depressive disorder, recurrent severe without psychotic features Assessment and Plan: Encourage more adaptive skills and perspective continue nortriptyline Seroquel Ativan Lamictal will check Lamictal level (2) Cognitive and neurobehavioral dysfunction following brain injury: Status: Acute Code(s): G31.89 - Other specified degenerative diseases of nervous system; F09 - Unspecified mental disorder due to known physiological condition; S06.9X9S - Unspecified intracranial injury with loss of consciousness of unspecified duration, sequela Assessment and Plan: Thegabapentin lamictal (3) HTN (hypertension): Status: Acute Code(s): I10 - Essential (primary) hypertension Assessment and Plan: Continue antihypertensives Plan Middle-aged male with a long history of mood symptoms with several admissions into the hospital for suicidal ideation. He also carries a diagnosis of TBI, historically he used to be highly functional but at this moment his wheelchair bounded and very angry at times. Plan 11/08/2022 1 continue antidepressant Encourage more adaptive coping strategies Consider Provigil or Ritalin for augmentation Physical therapy on unit consider referral for short-term rehab discussed with patient I spent __30____ minutes with the patient and/or on the patient floor today, g reater than?50% of which was spent counseling/coordinating care. Reason for contiued inpatient stay Substantial Risk for: harm to self, inability to function and rapid decompensation
[2022-01-09 11:53] VITALS: BMI 30.5
[2022-01-09] MEDS: QUEtiapine Fumarate 25 MG TABLET PO (13:27)
[2022-01-09] MEDS: Nystatin Cream 15 GM TUBE 1 APPL TOPICAL (20:22)
[2022-01-09] MEDS: Hydrocortisone 1 % Cream 28.35 GM TUBE 1 APPL TOPICAL (20:22)
[2022-01-09] MEDS: Latanoprost 0.005 % Ophth Sol 2.5 ML DROPS 1 DROP EYE-BOTH (20:23)
[2022-01-09 20:35] VITALS: BP 145/68; PULSE 83; RESP 20; TEMP 36.8; O2SAT 99
[2022-01-09] MEDS: Melatonin 3 MG TABLET 6 MG PO (21:48)
[2022-01-09] MEDS: Nortriptyline HCl 25 MG CAPSULE 100 MG PO (21:49)
[2022-01-09] MEDS: QUEtiapine Fumarate 50 MG TABLET PO (21:49)
[2022-01-09] MEDS: traZODone HCL 100 MG TABLET 250 MG PO (21:49)
[2022-01-10 06:00] VITALS: BP 146/77; PULSE 79; RESP 17; TEMP 36.2; O2SAT 98
[2022-01-10] MEDS: lamoTRIgine 100 MG TABLET 200 MG PO ×2 (08:41→21:24)
[2022-01-10] MEDS: Cholecalciferol (Vitamin D3) 10 MCG TABLET 20 MCG PO (08:42)
[2022-01-10] MEDS: Multivitamin TABLET 1 TAB PO (08:43)
[2022-01-10] MEDS: Gabapentin 400 MG CAPSULE PO ×3 (08:43→21:23)
[2022-01-10] MEDS: Finasteride 5 MG TABLET PO (08:43)
[2022-01-10] MEDS: lisinopriL 40 MG TABLET PO (08:43)
[2022-01-10] MEDS: Pramipexole Di-HCL 0.125 MG TABLET PO ×3 (08:43→21:23)
[2022-01-10] MEDS: amLODIPine Besylate 10 MG TABLET PO (08:43)
[2022-01-10] MEDS: hydroCHLOROthiazide 12.5 MG TABLET PO (08:43)
[2022-01-10 11:57] VITALS: BP 146/77; PULSE 79; O2SAT 98
[2022-01-10] MEDS: QUEtiapine Fumarate 25 MG TABLET PO (13:27)
--- NOTE | 2022-01-10 13:48 | P.PNPSI_ITS ---
Subjective Subjective Date of Service: 01/10/22 Reason For Visit: SI Subjective Notes: Conditional Voluntary Healthcare Proxy: Yes Guardianship: No Medical Problems Affecting Mental Status: Yes Interim History: The patient has been somewhat anxious preoccupied with his future. Irritability and despair. He is gradually improving and denies any active thoughts of self- harm. Has been less reactive somewhat improving mood wishes to return to his [facility] Medication Compliance: Yes Side effects from medications: No Attending Groups: Intermittent Review of Systems Acute medical concerns: No Medical Review of Systems: unchanged Mental Status Exam Mental Status Exam Patient Appearance: Appropriate Patient Orientation: Person, Place, Time and Situation Level of Consciousness: Awake Patient Behavior: Appropriate and Cooperative Mood Description: Constricted, Depressed and Anxious Affect Description: Constricted, Angry and Apprehensive Patient Cognition Impaired: No Ability to Follow Directions: Good Speech Pattern: Clear Memory Description: Episodic Impaired and Immediate Intact Hallucinations: None Delusions: Not Present Thought Process: Linear Thought Content: positive for Obsessional Thoughts, positive for Circumstantial, negative for Suicidal Ideation (Denies active self-harm in this setting) or negative for Homicidal Ideation Depressive Symptoms: Increased Anxiety and Thoughts of /Suicide Judgement: Fair Diagnostics Vital Signs (24Hr): Vital Signs - 24 hr 01/09/22 20:35 01/10/22 06:00 01/10/22 11:57 Temperature 98.2 F 97.1 F Pulse Rate 83 79 79 Respiratory Rate 20 17 Blood Pressure 145/68 H 146/77 H 146/77 H Pulse Oximetry 99 98 98 BMI result Body Mass Index 30.5 Labs Results: 12/09/21 19:15 12/09/21 19:15 Imaging Radiology Impressions: ITS Impressions Hip X-Ray 01/05/22 16:00 IMPRESSION: Healed old fracture right femoral neck. The femoral neck screws that had been present in 2010 has been removed. No acute finding. Medications Medications Current Medications Acetaminophen (Acetaminophen 325 Mg Tablet) 650 mg PO Q6H PRN PRN Reason: Pain (Scale Score 1-3) Last Admin: 01/07/22 21:51 Dose: 650 mg Documented by: Al Hydroxide/Mg Hydroxide (Magnesium Hydrox/Alum Hydrox 30 Ml Oral.Susp) 30 ml PO Q6H PRN PRN Reason: Heartburn/Nausea Last Admin: 12/16/21 14:54 Dose: 30 ml Documented by: Albuterol Sulfate (Albuterol Sulfate 90 Mcg 8 Gm Inhaler) 2 puff INHALE Q6H PRN PRN Reason: Shortness Of Breath Last Admin: 12/24/21 21:33 Dose: 2 puff Documented by: Amlodipine Besylate (Amlodipine Besylate 10 Mg Tablet) 10 mg PO DAILY [facility]; Protocol Last Admin: 01/10/22 08:43 Dose: 10 mg Documented by: Artificial Tears (Artificial Tears 15 Ml Drops) 1 drop EYE-BOTH Q1H PRN PRN Reason: Dry Eye(S) Docusate Sodium (Docusate Sodium 100 Mg Capsule) 100 mg PO BID PRN PRN Reason: Constipation Last Admin: 12/23/21 12:44 Dose: 100 mg Documented by: Finasteride (Finasteride 5 Mg Tablet) 5 mg PO DAILY [facility] Last Admin: 01/10/22 08:43 Dose: 5 mg Documented by: Gabapentin (Gabapentin 400 Mg Capsule) 400 mg PO TID [facility] Last Admin: 01/10/22 13:27 Dose: 400 mg Documented by: Hydrochlorothiazide (Hydrochlorothiazide 12.5 Mg Tablet) 12.5 mg PO DAILY [facility]; Protocol Last Admin: 01/10/22 08:43 Dose: 12.5 mg Documented by: Hydrocortisone (Hydrocortisone 1 % Cream 28.35 Gm Tube) 1 appl TOPICAL BID [facility]; Protocol Last Admin: 01/10/22 08:43 Dose: Not Given Documented by: Hydroxyzine HCl (Hydroxyzine Hcl 25 Mg Tablet) 25 mg PO BEDTIME PRN PRN Reason: Anxiety Last Admin: 12/18/21 03:17 Dose: 25 mg Documented by: Ibuprofen (Ibuprofen 400 Mg Tablet) 400 mg PO Q6H PRN PRN Reason: Pain, Moderate (Pain Scale 4-6 Last Admin: 01/09/22 20:23 Dose: 400 mg Documented by: Lamotrigine (Lamotrigine 100 Mg Tablet) 200 mg PO BID [facility] Last Admin: 01/10/22 08:41 Dose: 200 mg Documented by: Latanoprost (Latanoprost 0.005 % Ophth No 2.5 Ml Drops) 1 drop EYE-BOTH BEDTIME [facility] Last Admin: 01/09/22 20:23 Dose: 1 drop Documented by: Lidocaine (Lidocaine 4 % Patch Adh..Patch) 1 patch TRANSDERMA DAILY [facility]; Protocol Last Admin: 01/10/22 08:43 Dose: Not Given Documented by: Lisinopril (Lisinopril 40 Mg Tablet) 40 mg PO DAILY [facility]; Protocol Last Admin: 01/10/22 08:43 Dose: 40 mg Documented by: Lorazepam (Lorazepam 0.5 Mg Tablet) 0.5 mg PO Q6H PRN PRN Reason: anxiety/restlessness Magnesium Hydroxide (Milk Of Magnesia 30 Ml Oral.Susp) 30 ml PO Q72H PRN PRN Reason: Constipation Last Admin: 12/12/21 10:20 Dose: 30 ml Documented by: Magnesium Hydroxide (Milk Of Magnesia 30 Ml Oral.Susp) 30 ml PO DAILY PRN PRN Reason: Constipation Melatonin (Melatonin 3 Mg Tablet) 6 mg PO BEDTIME [facility] Last Admin: 01/09/22 21:48 Dose: 6 mg Documented by: Multivitamins/Vitamin C (Multivitamin Tablet) 1 tab PO DAILY [facility] Last Admin: 01/10/22 08:43 Dose: 1 tab Documented by: Nortriptyline HCl (Nortriptyline Hcl 25 Mg Capsule) 100 mg PO BEDTIME [facility] Last Admin: 01/09/22 21:49 Dose: 100 mg Documented by: Nystatin (Nystatin Cream 15 Gm Tube) 1 appl TOPICAL BID [facility]; Protocol Last Admin: 01/10/22 08:44 Dose: Not Given Documented by: Polyethylene Glycol (Polyethylene Glycol 3350 17 Gm Powd.Pack) 17 gm PO DAILY PRN PRN Reason: Constipation Last Admin: 12/22/21 21:39 Dose: 17 gm Documented by: Polyethylene Glycol (Polyethylene Glycol 3350 17 Gm Powd.Pack) 17 gm PO DAILY@1600 [facility] Last Admin: 01/10/22 07:48 Dose: Not Given Documented by: Pramipexole Dihydrochloride (Pramipexole Di-Hcl 0.125 Mg Tablet) 0.125 mg PO TID [facility] Last Admin: 01/10/22 13:27 Dose: 0.125 mg Documented by: Psyllium Hydrophilic Mucilloid (Psyllium Seed 3.4 Gm Powd.Pack) 3.4 gm PO DAILY [facility] Last Admin: 01/10/22 08:44 Dose: 3.4 gm Documented by: Quetiapine Fumarate (Quetiapine Fumarate 25 Mg Tablet) 25 mg PO BID PRN PRN Reason: Anxiety Last Admin: 12/27/21 13:02 Dose: 25 mg Documented by: Quetiapine Fumarate (Quetiapine Fumarate 50 Mg Tablet) 50 mg PO BEDTIME [facility] Last Admin: 01/09/22 21:49 Dose: 50 mg Documented by: Quetiapine Fumarate (Quetiapine Fumarate 25 Mg Tablet) 25 mg PO DAILY@1300 [facility] Last Admin: 01/10/22 13:27 Dose: 25 mg Documented by: Trazodone HCl (Trazodone Hcl 50 Mg Tablet) 50 mg PO BEDTIME PRN PRN Reason: Insomnia Last Admin: 01/03/22 01:01 Dose: 50 mg Documented by: Trazodone HCl (Trazodone Hcl 100 Mg Tablet) 250 mg PO BEDTIME [facility] Last Admin: 01/09/22 21:49 Dose: 250 mg Documented by: Vitamin D (Cholecalciferol (Vitamin D3) 10 Mcg Tablet) 20 mcg PO DAILY [facility] Last Admin: 01/10/22 08:42 Dose: 20 mcg Documented by: Allergies Allergies Allergy/AdvReac Type Severity Reaction Status Date / Time fentanyl [FENTANYL] Allergy Intermediate unknown Verified 05/22/21 11:43 Assessment & Plan Assessment & Plan (1) Major depressive disorder, recurrent severe without psychotic features: Status: Acute Code(s): F33.2 - Major depressive disorder, recurrent severe without psychotic features Assessment and Plan: Encourage more adaptive skills and perspective continue nortriptyline Seroquel Ativan Lamictal will check Lamictal level Seems more motivated less depressed encouraged to go to short-term rehab (2) Cognitive and neurobehavioral dysfunction following brain injury: Status: Acute Code(s): G31.89 - Other specified degenerative diseases of nervous system; F09 - Unspecified mental disorder due to known physiological condition; S06.9X9S - Un specified intracranial injury with loss of consciousness of unspecified duration, sequela Assessment and Plan: Thegabapentin lamictal (3) HTN (hypertension): Status: Acute Code(s): I10 - Essential (primary) hypertension Assessment and Plan: Continue antihypertensives Plan Middle-aged male with a long history of mood symptoms with several admissions into the hospital for suicidal ideation. He also carries a diagnosis of TBI, historically he used to be highly functional but at this moment his wheelchair bounded and very angry at times. Plan 11/08/2022 1 continue antidepressant Encourage more adaptive coping strategies Consider Provigil or Ritalin for augmentation Physical therapy on unit consider referral for short-term rehab discussed with patient I spent minutes with the patient and/or on the patient floor today, greater than?50% of which was spent counseling/coordinating care. Reason for contiued inpatient stay Substantial Risk for: harm to self and rapid decompensation
[2022-01-10] MEDS: Acetaminophen 325 MG TABLET 650 MG PO (15:39)
[2022-01-10] MEDS: polyethylene glycoL 3350 17 GM POWD.PACK PO (17:49)
[2022-01-10] MEDS: LORazepam 0.5 MG TABLET PO (17:49)
[2022-01-10 18:00] VITALS: BP 100/56; PULSE 78; RESP 18; TEMP 36.6; O2SAT 93
[2022-01-10] MEDS: Ibuprofen 400 MG TABLET PO (21:23)
[2022-01-10] MEDS: Hydrocortisone 1 % Cream 28.35 GM TUBE 1 APPL TOPICAL (21:23)
[2022-01-10] MEDS: QUEtiapine Fumarate 50 MG TABLET PO (21:23)
[2022-01-10] MEDS: Melatonin 3 MG TABLET 6 MG PO (21:24)
[2022-01-10] MEDS: traZODone HCL 100 MG TABLET 250 MG PO (21:24)
[2022-01-10] MEDS: Nortriptyline HCl 25 MG CAPSULE 100 MG PO (21:24)
[2022-01-10] MEDS: Nystatin Cream 15 GM TUBE 1 APPL TOPICAL (21:28)
[2022-01-10] MEDS: Latanoprost 0.005 % Ophth Sol 2.5 ML DROPS 1 DROP EYE-BOTH (21:28)
[2022-01-11] MEDS: LORazepam 0.5 MG TABLET PO ×2 (00:18→21:09)
[2022-01-11 08:00] VITALS: BP 114/60; PULSE 75; TEMP 36.7; O2SAT 94
--- NOTE | 2022-01-11 09:37 | HO.PSYCHPN ---
Subjective Subjective Date of Service: 01/11/22 Reason For Visit: SI Subjective Notes: Conditional Voluntary Guardianship: No Interim History: Patient has been somewhat exhausted down worried about future he is actively participating in trying to rehab Medication Compliance: Yes Attending Groups: Intermittent Review of Systems Medical Review of Systems: unchanged Mental Status Exam Mental Status Exam Patient Appearance: Appropriate Patient Orientation: Person, Place, Time and Situation Level of Consciousness: Awake Patient Behavior: Appropriate and Cooperative Mood Description: Constricted, Depressed, Anxious and Apprehensive Affect Description: Constricted, Angry and Apprehensive Patient Cognition Impaired: No Ability to Follow Directions: Good Speech Pattern: Clear Memory Description: Episodic Impaired and Immediate Intact Hallucinations: None Delusions: Not Present Thought Process: Linear Thought Content: positive for Obsessional Thoughts, positive for Circumstantial, negative for Suicidal Ideation (Denies active self-harm in this setting) or negative for Homicidal Ideation Depressive Symptoms: Increased Anxiety and Thoughts of /Suicide Judgement: Fair Diagnostics Vital Signs (24Hr): Vital Signs - 24 hr 01/10/22 11:57 01/10/22 18:00 Temperature 97.8 F Pulse Rate 79 78 Respiratory Rate 18 Blood Pressure 146/77 H 100/56 L Pulse Oximetry 98 93 BMI result Body Mass Index 30.5 Labs Results: 12/09/21 19:15 12/09/21 19:15 Imaging Radiology Impressions: ITS Impressions Hip X-Ray 01/05/22 16:00 IMPRESSION: Healed old fracture right femoral neck. The femoral neck screws that had been present in 2010 has been removed. No acute finding. Medications Medications Current Medications Acetaminophen (Acetaminophen 325 Mg Tablet) 650 mg PO Q6H PRN PRN Reason: Pain (Scale Score 1-3) Last Admin: 01/10/22 15:39 Dose: 650 mg Documented by: Al Hydroxide/Mg Hydroxide (Magnesium Hydrox/Alum Hydrox 30 Ml Oral.Susp) 30 ml PO Q6H PRN PRN Reason: Heartburn/Nausea Last Admin: 12/16/21 14:54 Dose: 30 ml Documented by: Albuterol Sulfate (Albuterol Sulfate 90 Mcg 8 Gm Inhaler) 2 puff INHALE Q6H PRN PRN Reason: Shortness Of Breath Last Admin: 12/24/21 21:33 Dose: 2 puff Documented by: Amlodipine Besylate (Amlodipine Besylate 10 Mg Tablet) 10 mg PO DAILY TAZ; Protocol Last Admin: 01/10/22 08:43 Dose: 10 mg Documented by: Artificial Tears (Artificial Tears 15 Ml Drops) 1 drop EYE-BOTH Q1H PRN PRN Reason: Dry Eye(S) Docusate Sodium (Docusate Sodium 100 Mg Capsule) 100 mg PO BID PRN PRN Reason: Constipation Last Admin: 12/23/21 12:44 Dose: 100 mg Documented by: Finasteride (Finasteride 5 Mg Tablet) 5 mg PO DAILY [facility] Last Admin: 01/10/22 08:43 Dose: 5 mg Documented by: Gabapentin (Gabapentin 400 Mg Capsule) 400 mg PO TID [facility] Last Admin: 01/10/22 21:23 Dose: 400 mg Documented by: Hydrochlorothiazide (Hydrochlorothiazide 12.5 Mg Tablet) 12.5 mg PO DAILY [facility], [facility]; Protocol Last Admin: 01/10/22 08:43 Dose: 12.5 mg Documented by: Hydrocortisone (Hydrocortisone 1 % Cream 28.35 Gm Tube) 1 appl TOPICAL BID [facility], [facility]; Protocol Last Admin: 01/10/22 21:23 Dose: 1 appl Documented by: Hydroxyzine HCl (Hydroxyzine Hcl 25 Mg Tablet) 25 mg PO BEDTIME PRN PRN Reason: Anxiety Last Admin: 12/18/21 03:17 Dose: 25 mg Documented by: Ibuprofen (Ibuprofen 400 Mg Tablet) 400 mg PO Q6H PRN PRN Reason: Pain, Moderate (Pain Scale 4-6 Last Admin: 01/10/22 21:23 Dose: 400 mg Documented by: Lamotrigine (Lamotrigine 100 Mg Tablet) 200 mg PO BID [facility] Last Admin: 01/10/22 21:24 Dose: 200 mg Documented by: Latanoprost (Latanoprost 0.005 % Ophth No 2.5 Ml Drops) 1 drop EYE-BOTH BEDTIME TAZ Last Admin: 01/10/22 21:28 Dose: 1 drop Documented by: Lidocaine (Lidocaine 4 % Patch Adh..Patch) 1 patch TRANSDERMA DAILY [facility], [facility]; Protocol Last Admin: 01/10/22 08:43 Dose: Not Given Documented by: Lisinopril (Lisinopril 40 Mg Tablet) 40 mg PO DAILY [facility]; Protocol Last Admin: 01/10/22 08:43 Dose: 40 mg Documented by: Lorazepam (Lorazepam 0.5 Mg Tablet) 0.5 mg PO Q6H PRN PRN Reason: anxiety/restlessness Last Admin: 01/11/22 00:18 Dose: 0.5 mg Documented by: Magnesium Hydroxide (Milk Of Magnesia 30 Ml Oral.Susp) 30 ml PO Q72H PRN PRN Reason: Constipation Last Admin: 12/12/21 10:20 Dose: 30 ml Documented by: Magnesium Hydroxide (Milk Of Magnesia 30 Ml Oral.Susp) 30 ml PO DAILY PRN PRN Reason: Constipation Melatonin (Melatonin 3 Mg Tablet) 6 mg PO BEDTIME [facility] Last Admin: 01/10/22 21:24 Dose: 6 mg Documented by: Multivitamins/Vitamin C (Multivitamin Tablet) 1 tab PO DAILY [facility] Last Admin: 01/10/22 08:43 Dose: 1 tab Documented by: Nortriptyline HCl (Nortriptyline Hcl 25 Mg Capsule) 100 mg PO BEDTIME [facility] Last Admin: 01/10/22 21:24 Dose: 100 mg Documented by: Nystatin (Nystatin Cream 15 Gm Tube) 1 appl TOPICAL BID [facility], [facility]; Protocol Last Admin: 01/10/22 21:28 Dose: 1 appl Documented by: Polyethylene Glycol (Polyethylene Glycol 3350 17 Gm Powd.Pack) 17 gm PO DAILY PRN PRN Reason: Constipation Last Admin: 12/22/21 21:39 Dose: 17 gm Documented by: Polyethylene Glycol (Polyethylene Glycol 3350 17 Gm Powd.Pack) 17 gm PO DAILY@1600 [facility] Last Admin: 01/10/22 17:49 Dose: 17 gm Documented by: Pramipexole Dihydrochloride (Pramipexole Di-Hcl 0.125 Mg Tablet) 0.125 mg PO TID [facility] Last Admin: 01/10/22 21:23 Dose: 0.125 mg Documented by: Psyllium Hydrophilic Mucilloid (Psyllium Seed 3.4 Gm Powd.Pack) 3.4 gm PO DAILY [facility] Last Admin: 01/10/22 08:44 Dose: 3.4 gm Documented by: Quetiapine Fumarate (Quetiapine Fumarate 25 Mg Tablet) 25 mg PO BID PRN PRN Reason: Anxiety Last Admin: 12/27/21 13:02 Dose: 25 mg Documented by: Quetiapine Fumarate (Quetiapine Fumarate 50 Mg Tablet) 50 mg PO BEDTIME [facility] Last Admin: 01/10/22 21:23 Dose: 50 mg Documented by: Quetiapine Fumarate (Quetiapine Fumarate 25 Mg Tablet) 25 mg PO DAILY@1300 [facility] Last Admin: 01/10/22 13:27 Dose: 25 mg Documented by: Trazodone HCl (Trazodone Hcl 50 Mg Tablet) 50 mg PO BEDTIME PRN PRN Reason: Insomnia Last Admin: 01/03/22 01:01 Dose: 50 mg Documented by: Trazodone HCl (Trazodone Hcl 100 Mg Tablet) 250 mg PO BEDTIME [facility] Last Admin: 01/10/22 21:24 Dose: 250 mg Documented by: Vitamin D (Cholecalciferol (Vitamin D3) 10 Mcg Tablet) 20 mcg PO DAILY [facility] Last Admin: 01/10/22 08:42 Dose: 20 mcg Documented by: Allergies Allergies Allergy/AdvReac Type Severity Reaction Status Date / Time fentanyl [FENTANYL] Allergy Intermediate unknown Verified 05/22/21 11:43 Assessment & Plan Assessment & Plan (1) Major depressive disorder, recurrent severe without psychotic features: Status: Acute Code(s): F33.2 - Major depressive disorder, recurrent severe without psychotic features Assessment and Plan: Encourage more adaptive skills and perspective continue nortriptyline Seroquel Ativan Lamictal will check Lamictal level Seems more motivated less depressed encouraged to go to short-term rehab Continue above treatment plan needs motivational interviewing (2) Cognitive and neurobehavioral dysfunction following brain injury: Status: Acute Code(s): G31.89 - Other specified degenerative diseases of nervous system; F09 - Unspecified mental disorder due to known physiological condition; S06.9X9S - Unspecified intracranial injury with loss of consciousness of unspecified duration, sequela Assessment and Plan: Thegabapentin lamictal (3) HTN (hypertension): Status: Acute Code(s): I10 - Essential (primary) hypertension Assessment and Plan: Continue antihypertensives Plan Middle-aged male with a long history of mood symptoms with several admissions into the hospital for suicidal ideation. He also carries a diagnosis of TBI, historically he used to be highly functional but at this moment his wheelchair bounded and very angry at times. Plan 11/08/2022 1 continue antidepressant Encourage more adaptive coping strategies Consider Provigil or Ritalin for augmentation Physical therapy on unit consider referral for short-term rehab discussed with patient I spent minutes with the patient and/or on the patient floor today, greater than?50% of which was spent counseling/coordinating care. Reason for contiued inpatient stay Substantial Risk for: harm to self and rapid decompensation
[2022-01-11] MEDS: hydroCHLOROthiazide 12.5 MG TABLET PO (10:07)
[2022-01-11] MEDS: lamoTRIgine 100 MG TABLET 200 MG PO ×2 (10:08→21:09)
[2022-01-11] MEDS: Pramipexole Di-HCL 0.125 MG TABLET PO ×3 (10:08→21:09)
[2022-01-11] MEDS: lisinopriL 40 MG TABLET PO (10:08)
[2022-01-11] MEDS: Gabapentin 400 MG CAPSULE PO ×3 (10:08→21:09)
[2022-01-11] MEDS: Multivitamin TABLET 1 TAB PO (10:08)
[2022-01-11] MEDS: Cholecalciferol (Vitamin D3) 10 MCG TABLET 20 MCG PO (10:08)
[2022-01-11] MEDS: Finasteride 5 MG TABLET PO (10:09)
[2022-01-11] MEDS: amLODIPine Besylate 10 MG TABLET PO (10:09)
[2022-01-11] MEDS: QUEtiapine Fumarate 25 MG TABLET PO (16:01)
[2022-01-11] MEDS: polyethylene glycoL 3350 17 GM POWD.PACK PO (16:01)
[2022-01-11] MEDS: Acetaminophen 325 MG TABLET 650 MG PO (17:56)
[2022-01-11 18:00] VITALS: BP 116/63; PULSE 72; RESP 18; TEMP 36.4; O2SAT 95
[2022-01-11] MEDS: Nortriptyline HCl 25 MG CAPSULE 100 MG PO (21:08)
[2022-01-11] MEDS: Hydrocortisone 1 % Cream 28.35 GM TUBE 1 APPL TOPICAL (21:08)
[2022-01-11] MEDS: traZODone HCL 100 MG TABLET 250 MG PO (21:08)
[2022-01-11] MEDS: Latanoprost 0.005 % Ophth Sol 2.5 ML DROPS 1 DROP EYE-BOTH (21:08)
[2022-01-11] MEDS: QUEtiapine Fumarate 50 MG TABLET PO (21:09)
[2022-01-11] MEDS: Melatonin 3 MG TABLET 6 MG PO (21:09)
[2022-01-12 08:47] VITALS: BP 117/68; PULSE 79; TEMP 36.3; O2SAT 94
[2022-01-12] MEDS: Pramipexole Di-HCL 0.125 MG TABLET PO ×3 (08:51→20:15)
[2022-01-12] MEDS: hydroCHLOROthiazide 12.5 MG TABLET PO (08:52)
[2022-01-12] MEDS: amLODIPine Besylate 10 MG TABLET PO (08:52)
[2022-01-12] MEDS: Finasteride 5 MG TABLET PO (08:52)
[2022-01-12] MEDS: Multivitamin TABLET 1 TAB PO (08:52)
[2022-01-12] MEDS: lamoTRIgine 100 MG TABLET 200 MG PO ×2 (08:52→20:16)
[2022-01-12] MEDS: Cholecalciferol (Vitamin D3) 10 MCG TABLET 20 MCG PO (08:52)
[2022-01-12] MEDS: lisinopriL 40 MG TABLET PO (08:53)
[2022-01-12] MEDS: Ibuprofen 400 MG TABLET PO ×2 (08:53→20:17)
[2022-01-12] MEDS: Gabapentin 400 MG CAPSULE PO ×3 (08:53→20:17)
[2022-01-12] MEDS: LORazepam 0.5 MG TABLET PO ×2 (10:12→20:16)
[2022-01-12] MEDS: QUEtiapine Fumarate 25 MG TABLET PO (12:46)
[2022-01-12] MEDS: polyethylene glycoL 3350 17 GM POWD.PACK PO (16:08)
[2022-01-12] MEDS: traZODone HCL 100 MG TABLET 250 MG PO (20:13)
[2022-01-12] MEDS: Melatonin 3 MG TABLET 6 MG PO (20:14)
[2022-01-12] MEDS: Nortriptyline HCl 25 MG CAPSULE 100 MG PO (20:14)
[2022-01-12 20:15] VITALS: BP 127/64; PULSE 77; RESP 18; TEMP 36.4; O2SAT 97
--- NOTE | 2022-01-12 20:15 | P.PNPSI_ITS ---
Subjective Subjective Date of Service: 01/12/22 Reason For Visit: SI Mental Status Exam Mental Status Exam Patient Appearance: Appropriate Patient Orientation: Person, Place, Time and Situation Level of Consciousness: Awake Patient Behavior: Appropriate and Cooperative Mood Description: Constricted, Depressed, Anxious and Apprehensive Affect Description: Constricted, Angry and Apprehensive Patient Cognition Impaired: No Ability to Follow Directions: Good Speech Pattern: Clear Memory Description: Episodic Impaired and Immediate Intact Hallucinations: None Delusions: Not Present Thought Process: Linear Thought Content: positive for Obsessional Thoughts, positive for Circumstantial, negative for Suicidal Ideation (Denies active self-harm in this setting) or negative for Homicidal Ideation Depressive Symptoms: Increased Anxiety and Thoughts of /Suicide Judgement: Fair Diagnostics Vital Signs (24Hr): Vital Signs - 24 hr 01/12/22 08:47 Temperature 97.4 F Pulse Rate 79 Blood Pressure 117/68 Pulse Oximetry 94 BMI result Body Mass Index 30.5 Labs Results: 12/09/21 19:15 12/09/21 19:15 Imaging Radiology Impressions: ITS Impressions Hip X-Ray 01/05/22 16:00 IMPRESSION: Healed old fracture right femoral neck. The femoral neck screws that had been present in 2010 has been removed. No acute finding. Medications Medications Current Medications Acetaminophen (Acetaminophen 325 Mg Tablet) 650 mg PO Q6H PRN PRN Reason: Pain (Scale Score 1-3) Last Admin: 01/11/22 17:56 Dose: 650 mg Documented by: Al Hydroxide/Mg Hydroxide (Magnesium Hydrox/Alum Hydrox 30 Ml Oral.Susp) 30 ml PO Q6H PRN PRN Reason: Heartburn/Nausea Last Admin: 12/16/21 14:54 Dose: 30 ml Documented by: Albuterol Sulfate (Albuterol Sulfate 90 Mcg 8 Gm Inhaler) 2 puff INHALE Q6H PRN PRN Reason: Shortness Of Breath Last Admin: 12/24/21 21:33 Dose: 2 puff Documented by: Amlodipine Besylate (Amlodipine Besylate 10 Mg Tablet) 10 mg PO DAILY TAZ; Protocol Last Admin: 01/12/22 08:52 Dose: 10 mg Documented by: Artificial Tears (Artificial Tears 15 Ml Drops) 1 drop EYE-BOTH Q1H PRN PRN Reason: Dry Eye(S) Docusate Sodium (Docusate Sodium 100 Mg Capsule) 100 mg PO BID PRN PRN Reason: Constipation Last Admin: 12/23/21 12:44 Dose: 100 mg Documented by: Finasteride (Finasteride 5 Mg Tablet) 5 mg PO DAILY [facility] Last Admin: 01/12/22 08:52 Dose: 5 mg Documented by: Gabapentin (Gabapentin 400 Mg Capsule) 400 mg PO TID [facility] Last Admin: 01/12/22 16:07 Dose: 400 mg Documented by: Hydrochlorothiazide (Hydrochlorothiazide 12.5 Mg Tablet) 12.5 mg PO DAILY TAZ; Protocol Last Admin: 01/12/22 08:52 Dose: 12.5 mg Documented by: Hydrocortisone (Hydrocortisone 1 % Cream 28.35 Gm Tube) 1 appl TOPICAL BID [facility]; Protocol Last Admin: 01/12/22 09:03 Dose: Not Given Documented by: Hydroxyzine HCl (Hydroxyzine Hcl 25 Mg Tablet) 25 mg PO BEDTIME PRN PRN Reason: Anxiety Last Admin: 12/18/21 03:17 Dose: 25 mg Documented by: Ibuprofen (Ibuprofen 400 Mg Tablet) 400 mg PO Q6H PRN PRN Reason: Pain, Moderate (Pain Scale 4-6 Last Admin: 01/12/22 08:53 Dose: 400 mg Documented by: Lamotrigine (Lamotrigine 100 Mg Tablet) 200 mg PO BID [facility] Last Admin: 01/12/22 08:52 Dose: 200 mg Documented by: Latanoprost (Latanoprost 0.005 % Ophth No 2.5 Ml Drops) 1 drop EYE-BOTH BEDTIME [facility] Last Admin: 01/11/22 21:08 Dose: 1 drop Documented by: Lidocaine (Lidocaine 4 % Patch Adh..Patch) 1 patch TRANSDERMA DAILY [facility]; Protocol Last Admin: 01/12/22 09:03 Dose: Not Given Documented by: Lisinopril (Lisinopril 40 Mg Tablet) 40 mg PO DAILY [facility]; Protocol Last Admin: 01/12/22 08:53 Dose: 40 mg Documented by: Lorazepam (Lorazepam 0.5 Mg Tablet) 0.5 mg PO Q6H PRN PRN Reason: anxiety/restlessness Last Admin: 01/12/22 10:12 Dose: 0.5 mg Documented by: Magnesium Hydroxide (Milk Of Magnesia 30 Ml Oral.Susp) 30 ml PO Q72H PRN PRN Reason: Constipation Last Admin: 12/12/21 10:20 Dose: 30 ml Documented by: Magnesium Hydroxide (Milk Of Magnesia 30 Ml Oral.Susp) 30 ml PO DAILY PRN PRN Reason: Constipation Melatonin (Melatonin 3 Mg Tablet) 6 mg PO BEDTIME [facility] Last Admin: 01/11/22 21:09 Dose: 6 mg Documented by: Multivitamins/Vitamin C (Multivitamin Tablet) 1 tab PO DAILY [facility] Last Admin: 01/12/22 08:52 Dose: 1 tab Documented by: Nortriptyline HCl (Nortriptyline Hcl 25 Mg Capsule) 100 mg PO BEDTIME [facility] Last Admin: 01/11/22 21:08 Dose: 100 mg Documented by: Nystatin (Nystatin Cream 15 Gm Tube) 1 appl TOPICAL BID [facility]; Protocol Last Admin: 01/12/22 09:03 Dose: Not Given Documented by: Polyethylene Glycol (Polyethylene Glycol 3350 17 Gm Powd.Pack) 17 gm PO DAILY PRN PRN Reason: Constipation Last Admin: 12/22/21 21:39 Dose: 17 gm Documented by: Polyethylene Glycol (Polyethylene Glycol 3350 17 Gm Powd.Pack) 17 gm PO DAILY@1600 [facility] Last Admin: 01/12/22 16:08 Dose: 17 gm Documented by: Pramipexole Dihydrochloride (Pramipexole Di-Hcl 0.125 Mg Tablet) 0.125 mg PO T ID [facility] Last Admin: 01/12/22 16:07 Dose: 0.125 mg Documented by: Psyllium Hydrophilic Mucilloid (Psyllium Seed 3.4 Gm Powd.Pack) 3.4 gm PO DAILY [facility] Last Admin: 01/12/22 08:51 Dose: 3.4 gm Documented by: Quetiapine Fumarate (Quetiapine Fumarate 25 Mg Tablet) 25 mg PO BID PRN PRN Reason: Anxiety Last Admin: 12/27/21 13:02 Dose: 25 mg Documented by: Quetiapine Fumarate (Quetiapine Fumarate 50 Mg Tablet) 50 mg PO BEDTIME [facility] Last Admin: 01/11/22 21:09 Dose: 50 mg Documented by: Quetiapine Fumarate (Quetiapine Fumarate 25 Mg Tablet) 25 mg PO DAILY@1300 [facility] Last Admin: 01/12/22 12:46 Dose: 25 mg Documented by: Trazodone HCl (Trazodone Hcl 50 Mg Tablet) 50 mg PO BEDTIME PRN PRN Reason: Insomnia Last Admin: 01/03/22 01:01 Dose: 50 mg Documented by: Trazodone HCl (Trazodone Hcl 100 Mg Tablet) 250 mg PO BEDTIME [facility] Last Admin: 01/11/22 21:08 Dose: 250 mg Documented by: Vitamin D (Cholecalciferol (Vitamin D3) 10 Mcg Tablet) 20 mcg PO DAILY [facility] Last Admin: 01/12/22 08:52 Dose: 20 mcg Documented by: Allergies Allergies Allergy/AdvReac Type Severity Reaction Status Date / Time fentanyl [FENTANYL] Allergy Intermediate unknown Verified 05/22/21 11:43 Assessment & Plan Assessment & Plan (1) Major depressive disorder, recurrent severe without psychotic features: Status: Acute Code(s): F33.2 - Major depressive disorder, recurrent severe without psychotic features Assessment and Plan: Encourage more adaptive skills and perspective continue nortriptyline Seroquel Ativan Lamictal will check Lamictal level Seems more motivated less depressed encouraged to go to short-term rehab Continue above treatment plan needs motivational interviewingfeedback re impulsive anger (2) Cognitive and neurobehavioral dysfunction following brain injury: Status: Acute Code(s): G31.89 - Other specified degenerative diseases of nervous system; F09 - Unspecified mental disorder due to known physiological condition; S06.9X9S - Unspecified intracranial injury with loss of consciousness of unspecified duration, sequela Assessment and Plan: Thegabapentin lamictal (3) HTN (hypertension): Status: Acute Code(s): I10 - Essential (primary) hypertension Assessment and Plan: Continue antihypertensives Plan Middle-aged male with a long history of mood symptoms with several admissions into the hospital for suicidal ideation. He also carries a diagnosis of TBI, historically he used to be highly functional but at this moment his wheelchair bounded and very angry at times. Plan 11/08/2022 1 continue antidepressant Encourage more adaptive coping strategies Consider Provigil or Ritalin for augmentation Physical therapy on unit consider referral for short-term rehab discussed with patient I spent minutes with the patient and/or on the patient floor today, greater than?50% of which was spent counseling/coordinating care. Reason for contiued inpatient stay Substantial Risk for: harm to self and rapid decompensation
[2022-01-12] MEDS: QUEtiapine Fumarate 50 MG TABLET PO (20:17)
[2022-01-12] MEDS: Hydrocortisone 1 % Cream 28.35 GM TUBE 1 APPL TOPICAL (20:17)
[2022-01-12] MEDS: Nystatin Cream 15 GM TUBE 1 APPL TOPICAL (20:18)
[2022-01-12] MEDS: Latanoprost 0.005 % Ophth Sol 2.5 ML DROPS 1 DROP EYE-BOTH (20:18)
[2022-01-13] MEDS: LORazepam 0.5 MG TABLET PO (07:01)
[2022-01-13 08:30] VITALS: BP 107/66; PULSE 79; RESP 17; TEMP 36.4; O2SAT 96
[2022-01-13] MEDS: amLODIPine Besylate 10 MG TABLET PO (09:56)
[2022-01-13] MEDS: hydroCHLOROthiazide 12.5 MG TABLET PO (09:57)
[2022-01-13] MEDS: lisinopriL 40 MG TABLET PO (09:57)
[2022-01-13] MEDS: Pramipexole Di-HCL 0.125 MG TABLET PO ×3 (09:57→21:01)
[2022-01-13] MEDS: Finasteride 5 MG TABLET PO (09:57)
[2022-01-13] MEDS: Gabapentin 400 MG CAPSULE PO ×3 (09:57→21:01)
[2022-01-13] MEDS: Cholecalciferol (Vitamin D3) 10 MCG TABLET 20 MCG PO (09:57)
[2022-01-13] MEDS: Multivitamin TABLET 1 TAB PO (10:01)
[2022-01-13] MEDS: lamoTRIgine 100 MG TABLET 200 MG PO ×2 (10:02→20:58)
[2022-01-13] MEDS: QUEtiapine Fumarate 25 MG TABLET PO (12:28)
[2022-01-13] MEDS: Ibuprofen 400 MG TABLET PO (12:28)
[2022-01-13] MEDS: polyethylene glycoL 3350 17 GM POWD.PACK PO (15:11)
--- NOTE | 2022-01-13 17:19 | P.PNPSI_ITS ---
Subjective Subjective Date of Service: 01/13/22 Reason For Visit: depression Subjective Notes: Conditional Voluntary Guardianship: No Interim History: Patient has been increasingly anxious dysphoric worried about changes and potential rehab Medication Compliance: Yes Side effects from medications: No Attending Groups: Intermittent Mental Status Exam Mental Status Exam Patient Appearance: Appropriate Patient Orientation: Person, Place, Time and Situation Level of Consciousness: Awake Patient Behavior: Appropriate and Cooperative Mood Description: Constricted, Depressed, Anxious and Apprehensive Affect Description: Constricted, Angry and Apprehensive Patient Cognition Impaired: No Ability to Follow Directions: Good Speech Pattern: Clear Memory Description: Episodic Impaired and Immediate Intact Hallucinations: None Delusions: Not Present Thought Process: Linear Thought Content: positive for Obsessional Thoughts, positive for Circumstantial, negative for Suicidal Ideation (Denies active self-harm in this setting) or negative for Homicidal Ideation Depressive Symptoms: Increased Anxiety and Thoughts of /Suicide Judgement: Fair Diagnostics Vital Signs (24Hr): Vital Signs - 24 hr 01/12/22 20:15 01/13/22 08:30 Temperature 97.5 F 97.5 F Pulse Rate 77 79 Respiratory Rate 18 17 Blood Pressure 127/64 107/66 Pulse Oximetry 97 96 BMI result Body Mass Index 30.5 Labs Results: 12/09/21 19:15 12/09/21 19:15 Imaging Radiology Impressions: ITS Impressions Hip X-Ray 01/05/22 16:00 IMPRESSION: Healed old fracture right femoral neck. The femoral neck screws that had been present in 2010 has been removed. No acute finding. Medications Medications Current Medications Acetaminophen (Acetaminophen 325 Mg Tablet) 650 mg PO Q6H PRN PRN Reason: Pain (Scale Score 1-3) Last Admin: 01/11/22 17:56 Dose: 650 mg Documented by: Al Hydroxide/Mg Hydroxide (Magnesium Hydrox/Alum Hydrox 30 Ml Oral.Susp) 30 ml PO Q6H PRN PRN Reason: Heartburn/Nausea Last Admin: 12/16/21 14:54 Dose: 30 ml Documented by: Albuterol Sulfate (Albuterol Sulfate 90 Mcg 8 Gm Inhaler) 2 puff INHALE Q6H PRN PRN Reason: Shortness Of Breath Last Admin: 12/24/21 21:33 Dose: 2 puff Documented by: Amlodipine Besylate (Amlodipine Besylate 10 Mg Tablet) 10 mg PO DAILY [facility]; Protocol Last Admin: 01/13/22 09:56 Dose: 10 mg Documented by: Artificial Tears (Artificial Tears 15 Ml Drops) 1 drop EYE-BOTH Q1H PRN PRN Reason: Dry Eye(S) Docusate Sodium (Docusate Sodium 100 Mg Capsule) 100 mg PO BID PRN PRN Reason: Constipation Last Admin: 12/23/21 12:44 Dose: 100 mg Documented by: Finasteride (Finasteride 5 Mg Tablet) 5 mg PO DAILY [facility] Last Admin: 01/13/22 09:57 Dose: 5 mg Documented by: Gabapentin (Gabapentin 400 Mg Capsule) 400 mg PO TID [facility]Z Last Admin: 01/13/22 15:11 Dose: 400 mg Documented by: Hydrochlorothiazide (Hydrochlorothiazide 12.5 Mg Tablet) 12.5 mg PO DAILY [facility]; Protocol Last Admin: 01/13/22 09:57 Dose: 12.5 mg Documented by: Hydrocortisone (Hydrocortisone 1 % Cream 28.35 Gm Tube) 1 appl TOPICAL BID [facility]; Protocol Last Admin: 01/13/22 10:03 Dose: Not Given Documented by: Hydroxyzine HCl (Hydroxyzine Hcl 25 Mg Tablet) 25 mg PO BEDTIME PRN PRN Reason: Anxiety Last Admin: 12/18/21 03:17 Dose: 25 mg Documented by: Ibuprofen (Ibuprofen 400 Mg Tablet) 400 mg PO Q6H PRN PRN Reason: Pain, Moderate (Pain Scale 4-6 Last Admin: 01/13/22 12:28 Dose: 400 mg Documented by: Lamotrigine (Lamotrigine 100 Mg Tablet) 200 mg PO BID [facility] Last Admin: 01/13/22 10:02 Dose: 200 mg Documented by: Latanoprost (Latanoprost 0.005 % Ophth No 2.5 Ml Drops) 1 drop EYE-BOTH BEDTIME [facility] Last Admin: 01/12/22 20:18 Dose: 1 drop Documented by: Lidocaine (Lidocaine 4 % Patch Adh..Patch) 1 patch TRANSDERMA DAILY [facility]; Protocol Last Admin: 01/13/22 10:03 Dose: Not Given Documented by: Lisinopril (Lisinopril 40 Mg Tablet) 40 mg PO DAILY [facility]; Protocol Last Admin: 01/13/22 09:57 Dose: 40 mg Documented by: Lorazepam (Lorazepam 0.5 Mg Tablet) 0.5 mg PO Q6H PRN PRN Reason: anxiety/restlessness Last Admin: 01/13/22 07:01 Dose: 0.5 mg Documented by: Magnesium Hydroxide (Milk Of Magnesia 30 Ml Oral.Susp) 30 ml PO Q72H PRN PRN Reason: Constipation Last Admin: 12/12/21 10:20 Dose: 30 ml Documented by: Magnesium Hydroxide (Milk Of Magnesia 30 Ml Oral.Susp) 30 ml PO DAILY PRN PRN Reason: Constipation Melatonin (Melatonin 3 Mg Tablet) 6 mg PO BEDTIME [facility] Last Admin: 01/12/22 20:14 Dose: 6 mg Documented by: Multivitamins/Vitamin C (Multivitamin Tablet) 1 tab PO DAILY [facility] Last Admin: 01/13/22 10:01 Dose: 1 tab Documented by: Nortriptyline HCl (Nortriptyline Hcl 25 Mg Capsule) 100 mg PO BEDTIME [facility] Last Admin: 01/12/22 20:14 Dose: 100 mg Documented by: Nystatin (Nystatin Cream 15 Gm Tube) 1 appl TOPICAL BID [facility]; Protocol Last Admin: 01/13/22 10:03 Dose: Not Given Documented by: Polyethylene Glycol (Polyethylene Glycol 3350 17 Gm Powd.Pack) 17 gm PO DAILY PRN PRN Reason: Constipation Last Admin: 12/22/21 21:39 Dose: 17 gm Documented by: Polyethylene Glycol (Polyethylene Glycol 3350 17 Gm Powd.Pack) 17 gm PO DAILY@1600 [facility] Last Admin: 01/13/22 15:11 Dose: 17 gm Documented by: Pramipexole Dihydrochloride (Pramipexole Di-Hcl 0.125 Mg Tablet) 0.125 mg PO TID [facility] Last Admin: 01/13/22 15:11 Dose: 0.125 mg Documented by: Psyllium Hydrophilic Mucilloid (Psyllium Seed 3.4 Gm Powd.Pack) 3.4 gm PO DAILY [facility] Last Admin: 01/13/22 09:57 Dose: 3.4 gm Documented by: Quetiapine Fumarate (Quetiapine Fumarate 25 Mg Tablet) 25 mg PO BID PRN PRN Reason: Anxiety Last Admin: 12/27/21 13:02 Dose: 25 mg Documented by: Quetiapine Fumarate (Quetiapine Fumarate 50 Mg Tablet) 50 mg PO BEDTIME [facility] Last Admin: 01/12/22 20:17 Dose: 50 mg Documented by: Quetiapine Fumarate (Quetiapine Fumarate 25 Mg Tablet) 25 mg PO DAILY@1300 [facility] Last Admin: 01/13/22 12:28 Dose: 25 mg Documented by: Trazodone HCl (Trazodone Hcl 50 Mg Tablet) 50 mg PO BEDTIME PRN PRN Reason: Insomnia Last Admin: 01/03/22 01:01 Dose: 50 mg Documented by: Trazodone HCl (Trazodone Hcl 100 Mg Tablet) 250 mg PO BEDTIME [facility] Last Admin: 01/12/22 20:13 Dose: 250 mg Documented by: Vitamin D (Cholecalciferol (Vitamin D3) 10 Mcg Tablet) 20 mcg PO DAILY [facility] Last Admin: 01/13/22 09:57 Dose: 20 mcg Documented by: Allergies Allergies Allergy/AdvReac Type Severity Reaction Status Date / Time fentanyl [FENTANYL] Allergy Intermediate unknown Verified 05/22/21 11:43 Assessment & Plan Assessment & Plan (1) Major depressive disorder, recurrent severe without psychotic features: Status: Acute Code(s): F33.2 - Major depressive disorder, recurrent severe without psychotic features Assessment and Plan: Encourage more adaptive skills and perspective continue nortriptyline Seroquel Ativan Lamictal will check Lamictal level Seems more motivated less depressed encouraged to go to short-term rehab this seems like appropriate referral at this time Seroquel 50 bid (2) Cognitive and neurobehavioral dysfunction following brain injury: Status: Acute Code(s): G31.89 - Other specified degenerative diseases of nervous system; F09 - Un specified mental disorder due to known physiological condition; S06.9X9S - Unspecified intracranial injury with loss of consciousness of unspecified duration, sequela Assessment and Plan: Thegabapentin lamictal (3) HTN (hypertension): Status: Acute Code(s): I10 - Essential (primary) hypertension Assessment and Plan: Continue antihypertensives Plan Middle-aged male with a long history of mood symptoms with several admissions into the hospital for suicidal ideation. He also carries a diagnosis of TBI, historically he used to be highly functional but at this moment his wheelchair bounded and very angry at times. Plan 11/08/2022 1 continue antidepressant Encourage more adaptive coping strategies Consider Provigil or Ritalin for augmentation Physical therapy on unit consider referral for short-term rehab discussed with patient I spent minutes with the patient and/or on the patient floor today, greater than?50% of which was spent counseling/coordinating care. Reason for contiued inpatient stay Substantial Risk for: rapid decompensation
[2022-01-13 18:00] VITALS: BP 123/67; PULSE 70; RESP 16; TEMP 36.4; O2SAT 97
[2022-01-13] MEDS: Nortriptyline HCl 25 MG CAPSULE 100 MG PO (20:57)
[2022-01-13] MEDS: traZODone HCL 100 MG TABLET 250 MG PO (20:59)
[2022-01-13] MEDS: Melatonin 3 MG TABLET 6 MG PO (21:02)
[2022-01-13] MEDS: Latanoprost 0.005 % Ophth Sol 2.5 ML DROPS 1 DROP EYE-BOTH (21:05)
[2022-01-13] MEDS: Hydrocortisone 1 % Cream 28.35 GM TUBE 1 APPL TOPICAL (21:07)
[2022-01-13] MEDS: Nystatin Cream 15 GM TUBE 1 APPL TOPICAL (21:08)
[2022-01-14] MEDS: LORazepam 0.5 MG TABLET PO ×2 (00:14→15:27)
[2022-01-14] MEDS: QUEtiapine Fumarate 25 MG TABLET PO (00:16)
[2022-01-14] MEDS: QUEtiapine Fumarate 50 MG TABLET PO ×3 (00:16→20:26)
[2022-01-14] MEDS: Ibuprofen 400 MG TABLET PO ×3 (05:15→21:02)
[2022-01-14] MEDS: Acetaminophen 325 MG TABLET 650 MG PO ×2 (06:56→13:43)
[2022-01-14 07:35] VITALS: BP 140/69; PULSE 71; RESP 19; TEMP 36.1; O2SAT 98
[2022-01-14] MEDS: lamoTRIgine 100 MG TABLET 200 MG PO ×2 (08:37→20:28)
[2022-01-14] MEDS: Cholecalciferol (Vitamin D3) 10 MCG TABLET 20 MCG PO (08:37)
[2022-01-14] MEDS: Pramipexole Di-HCL 0.125 MG TABLET PO ×3 (08:38→20:27)
[2022-01-14] MEDS: amLODIPine Besylate 10 MG TABLET PO (08:38)
[2022-01-14] MEDS: Finasteride 5 MG TABLET PO (08:38)
[2022-01-14] MEDS: hydroCHLOROthiazide 12.5 MG TABLET PO (08:38)
[2022-01-14] MEDS: Multivitamin TABLET 1 TAB PO (08:38)
[2022-01-14] MEDS: Gabapentin 400 MG CAPSULE PO ×3 (08:38→20:27)
[2022-01-14] MEDS: lisinopriL 40 MG TABLET PO (08:38)
[2022-01-14] MEDS: polyethylene glycoL 3350 17 GM POWD.PACK PO (15:29)
--- NOTE | 2022-01-14 17:52 | HO.PSYCHPN ---
Subjective Subjective Date of Service: 01/14/22 Reason For Visit: depression Subjective Notes: Conditional Voluntary Healthcare Proxy: No Guardianship: No Interim History: pt somewhat anxious depressed perseverating hoping for rehab setting taking seroquel for severe anxiety Medication Compliance: Yes Side effects from medications: No Mental Status Exam Mental Status Exam Patient Appearance: Appropriate Patient Orientation: Person, Place, Time and Situation Level of Consciousness: Awake Patient Behavior: Appropriate and Cooperative Mood Description: Constricted, Depressed, Anxious and Apprehensive Affect Description: Constricted, Angry and Apprehensive Patient Cognition Impaired: No Ability to Follow Directions: Good Speech Pattern: Clear Memory Description: Episodic Impaired and Immediate Intact Hallucinations: None Delusions: Not Present Thought Process: Linear Thought Content: positive for Obsessional Thoughts, positive for Circumstantial, negative for Suicidal Ideation (Denies active self-harm in this setting) or negative for Homicidal Ideation Depressive Symptoms: Increased Anxiety and Thoughts of /Suicide Judgement: Fair Judgement and Insight: improving Diagnostics Vital Signs (24Hr): Vital Signs - 24 hr 01/13/22 18:00 01/14/22 07:35 Temperature 97.6 F 97.0 F Pulse Rate 70 71 Respiratory Rate 16 19 Blood Pressure 123/67 140/69 H Pulse Oximetry 97 98 BMI result Body Mass Index 30.5 Labs Results: 12/09/21 19:15 12/09/21 19:15 Imaging Radiology Impressions: ITS Impressions Hip X-Ray 01/05/22 16:00 IMPRESSION: Healed old fracture right femoral neck. The femoral neck screws that had been present in 2010 has been removed. No acute finding. Medications Medications Current Medications Acetaminophen (Acetaminophen 325 Mg Tablet) 650 mg PO Q6H PRN PRN Reason: Pain (Scale Score 1-3) Last Admin: 01/14/22 13:43 Dose: 650 mg Documented by: Al Hydroxide/Mg Hydroxide (Magnesium Hydrox/Alum Hydrox 30 Ml Oral.Susp) 30 ml PO Q6H PRN PRN Reason: Heartburn/Nausea Last Admin: 12/16/21 14:54 Dose: 30 ml Documented by: Albuterol Sulfate (Albuterol Sulfate 90 Mcg 8 Gm Inhaler) 2 puff INHALE Q6H PRN PRN Reason: Shortness Of Breath Last Admin: 12/24/21 21:33 Dose: 2 puff Documented by: Amlodipine Besylate (Amlodipine Besylate 10 Mg Tablet) 10 mg PO DAILY [facility]; Protocol Last Admin: 01/14/22 08:38 Dose: 10 mg Documented by: Artificial Tears (Artificial Tears 15 Ml Drops) 1 drop EYE-BOTH Q1H PRN PRN Reason: Dry Eye(S) Docusate Sodium (Docusate Sodium 100 Mg Capsule) 100 mg PO BID PRN PRN Reason: Constipation Last Admin: 12/23/21 12:44 Dose: 100 mg Documented by: Finasteride (Finasteride 5 Mg Tablet) 5 mg PO DAILY [facility] Last Admin: 01/14/22 08:38 Dose: 5 mg Documented by: Gabapentin (Gabapentin 400 Mg Capsule) 400 mg PO TID [facility] Last Admin: 01/14/22 13:44 Dose: 400 mg Documented by: Hydrochlorothiazide (Hydrochlorothiazide 12.5 Mg Tablet) 12.5 mg PO DAILY [facility]; Protocol Last Admin: 01/14/22 08:38 Dose: 12.5 mg Documented by: Hydrocortisone (Hydrocortisone 1 % Cream 28.35 Gm Tube) 1 appl TOPICAL BID [facility]; Protocol Last Admin: 01/14/22 08:57 Dose: Not Given Documented by: Hydroxyzine HCl (Hydroxyzine Hcl 25 Mg Tablet) 25 mg PO BEDTIME PRN PRN Reason: Anxiety Last Admin: 12/18/21 03:17 Dose: 25 mg Documented by: Ibuprofen (Ibuprofen 400 Mg Tablet) 400 mg PO Q6H PRN PRN Reason: Pain, Moderate (Pain Scale 4-6 Last Admin: 01/14/22 15:27 Dose: 400 mg Documented by: Lamotrigine (Lamotrigine 100 Mg Tablet) 200 mg PO BID [facility] Last Admin: 01/14/22 08:37 Dose: 200 mg Documented by: Latanoprost (Latanoprost 0.005 % Ophth No 2.5 Ml Drops) 1 drop EYE-BOTH BEDTIME [facility] Last Admin: 01/13/22 21:05 Dose: 1 drop Documented by: Lidocaine (Lidocaine 4 % Patch Adh..Patch) 1 patch TRANSDERMA DAILY [facility]; Protocol Last Admin: 01/14/22 08:57 Dose: Not Given Documented by: Lisinopril (Lisinopril 40 Mg Tablet) 40 mg PO DAILY [facility]; Protocol Last Admin: 01/14/22 08:38 Dose: 40 mg Documented by: Lorazepam (Lorazepam 0.5 Mg Tablet) 0.5 mg PO Q6H PRN PRN Reason: anxiety/restlessness Last Admin: 01/14/22 15:27 Dose: 0.5 mg Documented by: Magnesium Hydroxide (Milk Of Magnesia 30 Ml Oral.Susp) 30 ml PO Q72H PRN PRN Reason: Constipation Last Admin: 12/12/21 10:20 Dose: 30 ml Documented by: Magnesium Hydroxide (Milk Of Magnesia 30 Ml Oral.Susp) 30 ml PO DAILY PRN PRN Reason: Constipation Melatonin (Melatonin 3 Mg Tablet) 6 mg PO BEDTIME [facility] Last Admin: 01/13/22 21:02 Dose: 6 mg Documented by: Multivitamins/Vitamin C (Multivitamin Tablet) 1 tab PO DAILY [facility] Last Admin: 01/14/22 08:38 Dose: 1 tab Documented by: Nortriptyline HCl (Nortriptyline Hcl 25 Mg Capsule) 100 mg PO BEDTIME [facility] Last Admin: 01/13/22 20:57 Dose: 100 mg Documented by: Nystatin (Nystatin Cream 15 Gm Tube) 1 appl TOPICAL BID [facility]; Protocol Last Admin: 01/14/22 08:57 Dose: Not Given Documented by: Polyethylene Glycol (Polyethylene Glycol 3350 17 Gm Powd.Pack) 17 gm PO DAILY PRN PRN Reason: Constipation Last Admin: 12/22/21 21:39 Dose: 17 gm Documented by: Polyethylene Glycol (Polyethylene Glycol 3350 17 Gm Powd.Pack) 17 gm PO DAILY@1600 [facility] Last Admin: 01/14/22 15:29 Dose: 17 gm Documented by: Pramipexole Dihydrochloride (Pramipexole Di-Hcl 0.125 Mg Tablet) 0.125 mg PO TID [facility] Last Admin: 01/14/22 13:44 Dose: 0.125 mg Documented by: Psyllium Hydrophilic Mucilloid (Psyllium Seed 3.4 Gm Powd.Pack) 3.4 gm PO DAILY [facility] Last Admin: 01/14/22 08:38 Dose: 3.4 gm Documented by: Quetiapine Fumarate (Quetiapine Fumarate 25 Mg Tablet) 25 mg PO BID PRN PRN Reason: Anxiety Last Admin: 01/14/22 00:16 Dose: 25 mg Documented by: Quetiapine Fumarate (Quetiapine Fumarate 50 Mg Tablet) 50 mg PO BEDTIME [facility] Last Admin: 01/14/22 00:16 Dose: 50 mg Documented by: Quetiapine Fumarate (Quetiapine Fumarate 50 Mg Tablet) 50 mg PO DAILY@1300 [facility] Last Admin: 01/14/22 13:44 Dose: 50 mg Documented by: Trazodone HCl (Trazodone Hcl 50 Mg Tablet) 50 mg PO BEDTIME PRN PRN Reason: Insomnia Last Admin: 01/03/22 01:01 Dose: 50 mg Documented by: Trazodone HCl (Trazodone Hcl 100 Mg Tablet) 250 mg PO BEDTIME [facility] Last Admin: 01/13/22 20:59 Dose: 250 mg Documented by: Vitamin D (Cholecalciferol (Vitamin D3) 10 Mcg Tablet) 20 mcg PO DAILY [facility] Last Admin: 01/14/22 08:37 Dose: 20 mcg Documented by: Allergies Allergies Allergy/AdvReac Type Severity Reaction Status Date / Time fentanyl [FENTANYL] Allergy Intermediate unknown Verified 05/22/21 11:43 Assessment & Plan Assessment & Plan (1) Major depressive disorder, recurrent severe without psychotic features: Status: Acute Code(s): F33.2 - Major depressive disorder, recurrent severe without psychotic features Assessment and Plan: Encourage more adaptive skills and perspective continue nortriptyline Seroquel Ativan Lamictal will check Lamictal level Seems more motivated less depressed encouraged to go to short-term rehab this seems like appropriate referral at this time Seroquel 50 bid needs encouragement referrals to rehab setting (2) Cognitive and neurobehavioral dysfunction following brain injury: Status: Acute Code(s): G31.89 - Other specified degenerative diseases of nervous system; F09 - Unspecified mental disorder due to known physiological condition; S06.9X9S - Unspecified intracranial injury with loss of consciousness of unspecified duration, sequela Assessment and Plan: Thegabapentin lamictal (3) HTN (hypertension): Status: Acute Code(s): I10 - Essential (primary) hypertension Assessment and Plan: Continue antihypertensives Plan Middle-aged male with a long history of mood symptoms with several admissions into the hospital for suicidal ideation. He also carries a diagnosis of TBI, historically he used to be highly functional but at this moment his wheelchair bounded and very angry at times. I spent _30 minutes with the patient and/or on the patient floor today, greater than?50% of which was spent counseling/coordinating care. Patient educated on: medication risk/benefits, therapeutic strategies and medical condition Reason for contiued inpatient stay Substantial Risk for: inability to function and rapid decompensation
[2022-01-14 18:00] VITALS: BP 117/58; PULSE 76; RESP 20; TEMP 36.4; O2SAT 95
[2022-01-14] MEDS: Nortriptyline HCl 25 MG CAPSULE 100 MG PO (20:23)
[2022-01-14] MEDS: Melatonin 3 MG TABLET 6 MG PO (20:25)
[2022-01-14] MEDS: traZODone HCL 100 MG TABLET 250 MG PO (20:26)
[2022-01-14] MEDS: Latanoprost 0.005 % Ophth Sol 2.5 ML DROPS 1 DROP EYE-BOTH (20:29)
[2022-01-14] MEDS: Hydrocortisone 1 % Cream 28.35 GM TUBE 1 APPL TOPICAL (20:29)
[2022-01-15] MEDS: traZODone HCL 50 MG TABLET PO (00:48)
[2022-01-15] MEDS: Acetaminophen 325 MG TABLET 650 MG PO (05:33)
[2022-01-15 06:00] VITALS: BP 119/66; PULSE 78; RESP 18; TEMP 36.2; O2SAT 97
[2022-01-15] MEDS: Multivitamin TABLET 1 TAB PO (08:53)
[2022-01-15] MEDS: lamoTRIgine 100 MG TABLET 200 MG PO ×2 (08:53→21:18)
[2022-01-15] MEDS: Finasteride 5 MG TABLET PO (08:53)
[2022-01-15] MEDS: Pramipexole Di-HCL 0.125 MG TABLET PO ×3 (08:53→21:24)
[2022-01-15] MEDS: Gabapentin 400 MG CAPSULE PO ×3 (08:53→21:27)
[2022-01-15] MEDS: Cholecalciferol (Vitamin D3) 10 MCG TABLET 20 MCG PO (08:53)
[2022-01-15] MEDS: Ibuprofen 400 MG TABLET PO (08:53)
[2022-01-15] MEDS: lisinopriL 40 MG TABLET PO (08:53)
[2022-01-15] MEDS: hydroCHLOROthiazide 12.5 MG TABLET PO (08:53)
[2022-01-15] MEDS: amLODIPine Besylate 10 MG TABLET PO (08:53)
--- NOTE | 2022-01-15 08:57 | HO.PSYCHPN ---
Subjective Subjective Date of Service: 01/15/22 Reason For Visit: depression Subjective Notes: Conditional Voluntary Healthcare Proxy: No Guardianship: No Interim History: Patient was increasingly anxious and stressed today worried reactive regarding pending acceptance into short-term rehab. Fearful of his future denies self-harming thoughts Above worsened by his sleepless night a roommate kept him up all night Medication Compliance: Yes Side effects from medications: No Mental Status Exam Mental Status Exam Patient Appearance: Appropriate Patient Orientation: Person, Place, Time and Situation Level of Consciousness: Awake Patient Behavior: Cooperative and Anxious Mood Description: Constricted, Depressed, Anxious and Apprehensive Affect Description: Constricted, Angry and Apprehensive Patient Cognition Impaired: No Ability to Follow Directions: Good Speech Pattern: Clear Memory Description: Episodic Impaired and Immediate Intact Hallucinations: None Delusions: Not Present Thought Process: Linear Thought Content: positive for Obsessional Thoughts, positive for Circumstantial, negative for Suicidal Ideation (Denies active self-harm in this setting) or negative for Homicidal Ideation Depressive Symptoms: Increased Anxiety and Thoughts of /Suicide Judgement: Fair Judgement and Insight: improving Diagnostics Vital Signs (24Hr): Vital Signs - 24 hr 01/14/22 18:00 Temperature 97.6 F Pulse Rate 76 Respiratory Rate 20 Blood Pressure 117/58 L Pulse Oximetry 95 BMI result Body Mass Index 30.5 Labs Results: 12/09/21 19:15 12/09/21 19:15 Imaging Radiology Impressions: ITS Impressions Hip X-Ray 01/05/22 16:00 IMPRESSION: Healed old fracture right femoral neck. The femoral neck screws that had been present in 2010 has been removed. No acute finding. Medications Medications Current Medications Acetaminophen (Acetaminophen 325 Mg Tablet) 650 mg PO Q6H PRN PRN Reason: Pain (Scale Score 1-3) Last Admin: 01/15/22 05:33 Dose: 650 mg Documented by: Al Hydroxide/Mg Hydroxide (Magnesium Hydrox/Alum Hydrox 30 Ml Oral.Susp) 30 ml PO Q6H PRN PRN Reason: Heartburn/Nausea Last Admin: 12/16/21 14:54 Dose: 30 ml Documented by: Albuterol Sulfate (Albuterol Sulfate 90 Mcg 8 Gm Inhaler) 2 puff INHALE Q6H PRN PRN Reason: Shortness Of Breath Last Admin: 12/24/21 21:33 Dose: 2 puff Documented by: Amlodipine Besylate (Amlodipine Besylate 10 Mg Tablet) 10 mg PO DAILY [facility]; Protocol Last Admin: 01/14/22 08:38 Dose: 10 mg Documented by: Artificial Tears (Artificial Tears 15 Ml Drops) 1 drop EYE-BOTH Q1H PRN PRN Reason: Dry Eye(S) Docusate Sodium (Docusate Sodium 100 Mg Capsule) 100 mg PO BID PRN PRN Reason: Constipation Last Admin: 12/23/21 12:44 Dose: 100 mg Documented by: Finasteride (Finasteride 5 Mg Tablet) 5 mg PO DAILY [facility] Last Admin: 01/14/22 08:38 Dose: 5 mg Documented by: Gabapentin (Gabapentin 400 Mg Capsule) 400 mg PO TID [facility] Last Admin: 01/14/22 20:27 Dose: 400 mg Documented by: Hydrochlorothiazide (Hydrochlorothiazide 12.5 Mg Tablet) 12.5 mg PO DAILY [facility]; Protocol Last Admin: 01/14/22 08:38 Dose: 12.5 mg Documented by: Hydrocortisone (Hydrocortisone 1 % Cream 28.35 Gm Tube) 1 appl TOPICAL BID [facility]; Protocol Last Admin: 01/14/22 20:29 Dose: 1 appl Documented by: Hydroxyzine HCl (Hydroxyzine Hcl 25 Mg Tablet) 25 mg PO BEDTIME PRN PRN Reason: Anxiety Last Admin: 12/18/21 03:17 Dose: 25 mg Documented by: Ibuprofen (Ibuprofen 400 Mg Tablet) 400 mg PO Q6H PRN PRN Reason: Pain, Moderate (Pain Scale 4-6 Last Admin: 01/14/22 21:02 Dose: 400 mg Documented by: Lamotrigine (Lamotrigine 100 Mg Tablet) 200 mg PO BID [facility] Last Admin: 01/14/22 20:28 Dose: 200 mg Documented by: Latanoprost (Latanoprost 0.005 % Ophth No 2.5 Ml Drops) 1 drop EYE-BOTH BEDTIME [facility] Last Admin: 01/14/22 20:29 Dose: 1 drop Documented by: Lidocaine (Lidocaine 4 % Patch Adh..Patch) 1 patch TRANSDERMA DAILY [facility]; Protocol Last Admin: 01/14/22 08:57 Dose: Not Given Documented by: Lisinopril (Lisinopril 40 Mg Tablet) 40 mg PO DAILY [facility]; Protocol Last Admin: 01/14/22 08:38 Dose: 40 mg Documented by: Lorazepam (Lorazepam 0.5 Mg Tablet) 0.5 mg PO Q6H PRN PRN Reason: anxiety/restlessness Last Admin: 01/14/22 15:27 Dose: 0.5 mg Documented by: Magnesium Hydroxide (Milk Of Magnesia 30 Ml Oral.Susp) 30 ml PO Q72H PRN PRN Reason: Constipation Last Admin: 12/12/21 10:20 Dose: 30 ml Documented by: Magnesium Hydroxide (Milk Of Magnesia 30 Ml Oral.Susp) 30 ml PO DAILY PRN PRN Reason: Constipation Melatonin (Melatonin 3 Mg Tablet) 6 mg PO BEDTIME [facility] Last Admin: 01/14/22 20:25 Dose: 6 mg Documented by: Multivitamins/Vitamin C (Multivitamin Tablet) 1 tab PO DAILY [facility] Last Admin: 01/14/22 08:38 Dose: 1 tab Documented by: Nortriptyline HCl (Nortriptyline Hcl 25 Mg Capsule) 100 mg PO BEDTIME [facility] Last Admin: 01/14/22 20:23 Dose: 100 mg Documented by: Nystatin (Nystatin Cream 15 Gm Tube) 1 appl TOPICAL BID [facility]; Protocol Last Admin: 01/14/22 20:29 Dose: Not Given Documented by: Polyethylene Glycol (Polyethylene Glycol 3350 17 Gm Powd.Pack) 17 gm PO DAILY PRN PRN Reason: Constipation Last Admin: 12/22/21 21:39 Dose: 17 gm Documented by: Polyethylene Glycol (Polyethylene Glycol 3350 17 Gm Powd.Pack) 17 gm PO DAILY@1600 [facility] Last Admin: 01/14/22 15:29 Dose: 17 gm Documented by: Pramipexole Dihydrochloride (Pramipexole Di-Hcl 0.125 Mg Tablet) 0.125 mg PO TID [facility] Last Admin: 01/14/22 20:27 Dose: 0.125 mg Documented by: Psyllium Hydrophilic Mucilloid (Psyllium Seed 3.4 Gm Powd.Pack) 3.4 gm PO DAILY [facility] Last Admin: 01/14/22 08:38 Dose: 3.4 gm Documented by: Quetiapine Fumarate (Quetiapine Fumarate 25 Mg Tablet) 25 mg PO BID PRN PRN Reason: Anxiety Last Admin: 01/14/22 00:16 Dose: 25 mg Documented by: Quetiapine Fumarate (Quetiapine Fumarate 50 Mg Tablet) 50 mg PO BEDTIME [facility] Last Admin: 01/14/22 20:26 Dose: 50 mg Documented by: Quetiapine Fumarate (Quetiapine Fumarate 50 Mg Tablet) 50 mg PO DAILY@1300 [facility] Last Admin: 01/14/22 13:44 Dose: 50 mg Documented by: Trazodone HCl (Trazodone Hcl 50 Mg Tablet) 50 mg PO BEDTIME PRN PRN Reason: Insomnia Last Admin: 01/15/22 00:48 Dose: 50 mg Documented by: Trazodone HCl (Trazodone Hcl 100 Mg Tablet) 250 mg PO BEDTIME [facility] Last Admin: 01/14/22 20:26 Dose: 250 mg Documented by: Vitamin D (Cholecalciferol (Vitamin D3) 10 Mcg Tablet) 20 mcg PO DAILY [facility] Last Admin: 01/14/22 08:37 Dose: 20 mcg Documented by: Allergies Allergies Allergy/AdvReac Type Severity Reaction Status Date / Time fentanyl [FENTANYL] Allergy Intermediate unknown Verified 05/22/21 11:43 Assessment & Plan Assessment & Plan (1) Major depressive disorder, recurrent severe without psychotic features: Status: Acute Code(s): F33.2 - Major depressive disorder, recurrent severe without psychotic features Assessment and Plan: Encourage more adaptive skills and perspective continue nortriptyline Seroquel Ativan Lamictal will check Lamictal level Seems more motivated less depressed encouraged to go to short-term rehab this seems like appropriate referral at this time Seroquel 50 bid needs encouragement referrals to rehab setting 02/04/2022 Patient seen needed much encouragement. Discussed referral to rehab and to continue working why he was in the hospital. Also discussed the addition of Viibryd 10 mg in the morning hopefully will help with anxiety and work with nortriptyline monitor response Social work working on referral to short-term rehab setting (2) Cognitive and neurobehavioral dysfunction following brain injury: Status: Acute Code(s): G31.89 - Other specified degenerative diseases of nervous system; F09 - Unspecified mental disorder due to known physiological condition; S06.9X9S - Unspecified intracranial injury with loss of consciousness of unspecified duration, sequela Assessment and Plan: Thegabapentin lamictal (3) HTN (hypertension): Status: Acute Code(s): I10 - Essential (primary) hypertension Assessment and Plan: Continue antihypertensives Plan Middle-aged male with a long history of mood symptoms with several admissions into the hospital for suicidal ideation. He also carries a diagnosis of TBI, historically he used to be highly functional but at this moment his wheelchair bounded and very angry at times. I spent minutes with the patient and/or on the patient floor today, greater than?50% of which was spent counseling/coordinating care. Reason for contiued inpatient stay Substantial Risk for: inability to function, rapid decompensation and med/psych decompensation
[2022-01-15] MEDS: LORazepam 0.5 MG TABLET PO (13:55)
[2022-01-15] MEDS: QUEtiapine Fumarate 50 MG TABLET PO ×2 (13:56→21:21)
[2022-01-15] MEDS: polyethylene glycoL 3350 17 GM POWD.PACK PO (17:42)
[2022-01-15] MEDS: QUEtiapine Fumarate 25 MG TABLET PO (17:42)
[2022-01-15] MEDS: Melatonin 3 MG TABLET 6 MG PO (21:16)
[2022-01-15] MEDS: traZODone HCL 100 MG TABLET 250 MG PO (21:22)
[2022-01-15] MEDS: Nortriptyline HCl 25 MG CAPSULE 100 MG PO (21:25)
[2022-01-15] MEDS: Latanoprost 0.005 % Ophth Sol 2.5 ML DROPS 1 DROP EYE-BOTH (21:36)
[2022-01-15] MEDS: Hydrocortisone 1 % Cream 28.35 GM TUBE 1 APPL TOPICAL (21:36)
[2022-01-16] MEDS: Ibuprofen 400 MG TABLET PO (04:54)
[2022-01-16 06:00] VITALS: BP 121/63; PULSE 73; RESP 16; TEMP 36.2; O2SAT 97
[2022-01-16] MEDS: hydroCHLOROthiazide 12.5 MG TABLET PO (08:40)
[2022-01-16] MEDS: lisinopriL 40 MG TABLET PO (08:40)
[2022-01-16] MEDS: Pramipexole Di-HCL 0.125 MG TABLET PO ×3 (08:40→23:47)
[2022-01-16] MEDS: Cholecalciferol (Vitamin D3) 10 MCG TABLET 20 MCG PO (08:41)
[2022-01-16] MEDS: amLODIPine Besylate 10 MG TABLET PO (08:41)
[2022-01-16] MEDS: lamoTRIgine 100 MG TABLET 200 MG PO ×2 (08:41→23:45)
[2022-01-16] MEDS: Multivitamin TABLET 1 TAB PO (08:41)
[2022-01-16] MEDS: Finasteride 5 MG TABLET PO (08:41)
[2022-01-16] MEDS: Gabapentin 400 MG CAPSULE PO ×3 (08:42→23:51)
[2022-01-16] MEDS: Vilazodone HCL 10 MG TABLET PO (08:42)
[2022-01-16] MEDS: QUEtiapine Fumarate 50 MG TABLET PO ×2 (13:53→23:47)
--- NOTE | 2022-01-16 15:05 | P.PNPSI_ITS ---
Subjective Subjective Date of Service: 01/16/22 Reason For Visit: depression Subjective Notes: Conditional Voluntary Interim History: The nursing staff reports the patient has been compliant with treatment no changes in his mental status. On interview the patient reported that he has been very sad since he has been refused from another nursing facility. He states that he is very anxious, he is waiting for placement. The licensed clinical social worker has applied to several facilities and so far he has been rejected due to his past history of suicide ideation. Mental Status Exam Mental Status Exam Patient Appearance: Well Grooomed ( Wheelchair bound) Patient Orientation: Person Level of Consciousness: Awake Patient Behavior: Appropriate Mood Description: Depressed Affect Description: Constricted Patient Cognition Impaired: No Ability to Follow Directions: Good Speech Pattern: Clear Memory Description: Intact Hallucinations: None Delusions: Not Present Thought Process: Intact Thought Content: positive for Linear Judgement: Fair Diagnostics Vital Signs (24Hr): Vital Signs - 24 hr 01/16/22 06:00 Temperature 97.1 F Pulse Rate 73 Respiratory Rate 16 Blood Pressure 121/63 Pulse Oximetry 97 BMI result Body Mass Index 30.5 Labs Results: 12/09/21 19:15 12/09/21 19:15 Imaging Radiology Impressions: ITS Impressions Hip X-Ray 01/05/22 16:00 IMPRESSION: Healed old fracture right femoral neck. The femoral neck screws that had been present in 2010 has been removed. No acute finding. Medications Medications Current Medications Acetaminophen (Acetaminophen 325 Mg Tablet) 650 mg PO Q6H PRN PRN Reason: Pain (Scale Score 1-3) Last Admin: 01/15/22 05:33 Dose: 650 mg Documented by: Al Hydroxide/Mg Hydroxide (Magnesium Hydrox/Alum Hydrox 30 Ml Oral.Susp) 30 ml PO Q6H PRN PRN Reason: Heartburn/Nausea Last Admin: 12/16/21 14:54 Dose: 30 ml Documented by: Albuterol Sulfate (Albuterol Sulfate 90 Mcg 8 Gm Inhaler) 2 puff INHALE Q6H PRN PRN Reason: Shortness Of Breath Last Admin: 12/24/21 21:33 Dose: 2 puff Documented by: Amlodipine Besylate (Amlodipine Besylate 10 Mg Tablet) 10 mg PO DAILY [facility]; Protocol Last Admin: 01/16/22 08:41 Dose: 10 mg Documented by: Artificial Tears (Artificial Tears 15 Ml Drops) 1 drop EYE-BOTH Q1H PRN PRN Reason: Dry Eye(S) Docusate Sodium (Docusate Sodium 100 Mg Capsule) 100 mg PO BID PRN PRN Reason: Constipation Last Admin: 12/23/21 12:44 Dose: 100 mg Documented by: Finasteride (Finasteride 5 Mg Tablet) 5 mg PO DAILY [facility] Last Admin: 01/16/22 08:41 Dose: 5 mg Documented by: Gabapentin (Gabapentin 400 Mg Capsule) 400 mg PO TID [facility] Last Admin: 01/16/22 13:53 Dose: 400 mg Documented by: Hydrochlorothiazide (Hydrochlorothiazide 12.5 Mg Tablet) 12.5 mg PO DAILY [facility]; Protocol Last Admin: 01/16/22 08:40 Dose: 12.5 mg Documented by: Hydrocortisone (Hydrocortisone 1 % Cream 28.35 Gm Tube) 1 appl TOPICAL BID [facility]; Protocol Last Admin: 01/16/22 10:04 Dose: Not Given Documented by: Hydroxyzine HCl (Hydroxyzine Hcl 25 Mg Tablet) 25 mg PO BEDTIME PRN PRN Reason: Anxiety Last Admin: 12/18/21 03:17 Dose: 25 mg Documented by: Ibuprofen (Ibuprofen 400 Mg Tablet) 400 mg PO Q6H PRN PRN Reason: Pain, Moderate (Pain Scale 4-6 Last Admin: 01/16/22 04:54 Dose: 400 mg Documented by: Lamotrigine (Lamotrigine 100 Mg Tablet) 200 mg PO BID [facility] Last Admin: 01/16/22 08:41 Dose: 200 mg Documented by: Latanoprost (Latanoprost 0.005 % Ophth No 2.5 Ml Drops) 1 drop EYE-BOTH BEDTIME [facility] Last Admin: 01/15/22 21:36 Dose: 1 drop Documented by: Lidocaine (Lidocaine 4 % Patch Adh..Patch) 1 patch TRANSDERMA DAILY [facility]; Protocol Last Admin: 01/16/22 13:56 Dose: Not Given Documented by: Lisinopril (Lisinopril 40 Mg Tablet) 40 mg PO DAILY [facility]; Protocol Last Admin: 01/16/22 08:40 Dose: 40 mg Documented by: Lorazepam (Lorazepam 0.5 Mg Tablet) 0.5 mg PO Q6H PRN PRN Reason: anxiety/restlessness Last Admin: 01/15/22 13:55 Dose: 0.5 mg Documented by: Magnesium Hydroxide (Milk Of Magnesia 30 Ml Oral.Susp) 30 ml PO Q72H PRN PRN Reason: Constipation Last Admin: 12/12/21 10:20 Dose: 30 ml Documented by: Magnesium Hydroxide (Milk Of Magnesia 30 Ml Oral.Susp) 30 ml PO DAILY PRN PRN Reason: Constipation Melatonin (Melatonin 3 Mg Tablet) 6 mg PO BEDTIME [facility] Last Admin: 01/15/22 21:16 Dose: 6 mg Documented by: Multivitamins/Vitamin C (Multivitamin Tablet) 1 tab PO DAILY [facility] Last Admin: 01/16/22 08:41 Dose: 1 tab Documented by: Nortriptyline HCl (Nortriptyline Hcl 25 Mg Capsule) 100 mg PO BEDTIME [facility] Last Admin: 01/15/22 21:25 Dose: 100 mg Documented by: Nystatin (Nystatin Cream 15 Gm Tube) 1 appl TOPICAL BID [facility]; Protocol Last Admin: 01/16/22 13:56 Dose: Not Given Documented by: Polyethylene Glycol (Polyethylene Glycol 3350 17 Gm Powd.Pack) 17 gm PO DAILY PRN PRN Reason: Constipation Last Admin: 12/22/21 21:39 Dose: 17 gm Documented by: Polyethylene Glycol (Polyethylene Glycol 3350 17 Gm Powd.Pack) 17 gm PO DAILY@1600 [facility] Last Admin: 01/15/22 17:42 Dose: 17 gm Documented by: Pramipexole Dihydrochloride (Pramipexole Di-Hcl 0.125 Mg Tablet) 0.125 mg PO TID [facility] Last Admin: 01/16/22 13:53 Dose: 0.125 mg Documented by: Psyllium Hydrophilic Mucilloid (Psyllium Seed 3.4 Gm Powd.Pack) 3.4 gm PO DAILY [facility] Last Admin: 01/16/22 08:42 Dose: 3.4 gm Documented by: Quetiapine Fumarate (Quetiapine Fumarate 25 Mg Tablet) 25 mg PO BID PRN PRN Reason: Anxiety Last Admin: 01/15/22 17:42 Dose: 25 mg Documented by: Quetiapine Fumarate (Quetiapine Fumarate 50 Mg Tablet) 50 mg PO BEDTIME [facility] Last Admin: 01/15/22 21:21 Dose: 50 mg Documented by: Quetiapine Fumarate (Quetiapine Fumarate 50 Mg Tablet) 50 mg PO DAILY@1300 [facility] Last Admin: 01/16/22 13:53 Dose: 50 mg Documented by: Trazodone HCl (Trazodone Hcl 50 Mg Tablet) 50 mg PO BEDTIME PRN PRN Reason: Insomnia Last Admin: 01/15/22 00:48 Dose: 50 mg Documented by: Trazodone HCl (Trazodone Hcl 100 Mg Tablet) 250 mg PO BEDTIME [facility] Last Admin: 01/15/22 21:22 Dose: 250 mg Documented by: Vilazodone HCl (Vilazodone Hcl 10 Mg Tablet) 10 mg PO DAILY [facility] Last Admin: 01/16/22 08:42 Dose: 10 mg Documented by: Vitamin D (Cholecalciferol (Vitamin D3) 10 Mcg Tablet) 20 mcg PO DAILY [facility] Last Admin: 01/16/22 08:41 Dose: 20 mcg Documented by: Allergies Allergies Allergy/AdvReac Type Severity Reaction Status Date / Time fentanyl [FENTANYL] Allergy Intermediate unknown Verified 05/22/21 11:43 Assessment & Plan Assessment & Plan (1) Major depressive disorder, recurrent severe without psychotic features: Status: Acute Code(s): F33.2 - Major depressive disorder, recurrent severe without psychotic features Assessment and Plan: Encourage more adaptive skills and perspective continue nortriptyline Seroquel Ativan Lamictal will check Lamictal level Seems more motivated less depressed encouraged to go to short-term rehab this seems like appropriate referral at this time Seroquel 50 bid needs encouragement referrals to rehab setting 02/04/2022 Patient seen needed much encouragement. Discussed referral to rehab and to continue working why he was in the hospital. Also discussed the addition of Viibryd 10 mg in the morning hopefully will help with anxiety and work with nortriptyline monitor response Social work working on referral to short-term rehab setting (2) Cognitive and neurobehavioral dysfunction following brain injury: Status: Acute Code(s): G31.89 - Other specified degenerative diseases of nervous system; F09 - Unspecified mental disorder due to known physiological condition; S06.9X9S - Unspecified intracranial injury with loss of consciousness of unspecified duration, sequela Assessment and Plan: Thegabapentin lamictal (3) HTN (hypertension): Status: Acute Code(s): I10 - Essential (primary) hypertension Assessment and Plan: Continue antihypertensives Plan Middle-aged male with a long history of mood symptoms with several admissions into the hospital for suicidal ideation. He also carries a diagnosis of TBI, historically he used to be highly functional but at this moment his wheelchair bounded and very angry at times. I spent minutes with the patient and/or on the patient floor today, greater than?50% of which was spent counseling/coordinating care. Reason for contiued inpatient stay Substantial Risk for: inability to function, rapid decompensation and med/psych decompensation
[2022-01-16] MEDS: Acetaminophen 325 MG TABLET 650 MG PO (15:16)
--- NOTE | 2022-01-16 17:46 | PC.NURSE ---
Pt with outburst at dinner, yelled at staff and other pts. Pt stated They were sitting at my table and I was waiting to eat, and they just sat there and would not move. Encouraged pt to ask staff for assistance if he needed help with peers.
[2022-01-16 18:00] VITALS: BP 127/67; PULSE 75; RESP 18; TEMP 36.3; O2SAT 97
[2022-01-16] MEDS: polyethylene glycoL 3350 17 GM POWD.PACK PO (18:08)
[2022-01-16] MEDS: Melatonin 3 MG TABLET 6 MG PO (23:46)
[2022-01-16] MEDS: traZODone HCL 100 MG TABLET 250 MG PO (23:48)
[2022-01-16] MEDS: Nortriptyline HCl 25 MG CAPSULE 100 MG PO (23:52)
[2022-01-16] MEDS: Hydrocortisone 1 % Cream 28.35 GM TUBE 1 APPL TOPICAL (23:56)
[2022-01-16] MEDS: Latanoprost 0.005 % Ophth Sol 2.5 ML DROPS 1 DROP EYE-BOTH (23:57)
[2022-01-17 06:00] VITALS: BP 133/68; PULSE 83; RESP 16; TEMP 36.4; O2SAT 95
[2022-01-17] MEDS: Cholecalciferol (Vitamin D3) 10 MCG TABLET 20 MCG PO (09:25)
[2022-01-17] MEDS: Pramipexole Di-HCL 0.125 MG TABLET PO ×3 (09:25→20:33)
[2022-01-17] MEDS: Finasteride 5 MG TABLET PO (09:25)
[2022-01-17] MEDS: hydroCHLOROthiazide 12.5 MG TABLET PO (09:26)
[2022-01-17] MEDS: Vilazodone HCL 10 MG TABLET PO (09:26)
[2022-01-17] MEDS: lisinopriL 40 MG TABLET PO (09:26)
[2022-01-17] MEDS: Multivitamin TABLET 1 TAB PO (09:26)
[2022-01-17] MEDS: amLODIPine Besylate 10 MG TABLET PO (09:26)
[2022-01-17] MEDS: lamoTRIgine 100 MG TABLET 200 MG PO ×2 (09:27→20:34)
[2022-01-17] MEDS: Gabapentin 400 MG CAPSULE PO ×3 (09:27→20:34)
[2022-01-17] MEDS: Ibuprofen 400 MG TABLET PO ×2 (09:30→20:34)
[2022-01-17 10:39] VITALS: BP 133/68; PULSE 83; O2SAT 95
[2022-01-17] MEDS: QUEtiapine Fumarate 50 MG TABLET PO ×2 (13:32→20:34)
[2022-01-17] MEDS: polyethylene glycoL 3350 17 GM POWD.PACK PO (15:00)
[2022-01-17 18:00] VITALS: BP 113/62; PULSE 73; RESP 20; TEMP 36.3; O2SAT 97
[2022-01-17] MEDS: Latanoprost 0.005 % Ophth Sol 2.5 ML DROPS 1 DROP EYE-BOTH (20:32)
[2022-01-17] MEDS: Nortriptyline HCl 25 MG CAPSULE 100 MG PO (20:32)
[2022-01-17] MEDS: Hydrocortisone 1 % Cream 28.35 GM TUBE 1 APPL TOPICAL (20:32)
[2022-01-17] MEDS: traZODone HCL 100 MG TABLET 250 MG PO (20:33)
[2022-01-17] MEDS: LORazepam 0.5 MG TABLET PO (20:33)
[2022-01-17] MEDS: Melatonin 3 MG TABLET 6 MG PO (20:34)
[2022-01-17] MEDS: Nystatin Cream 15 GM TUBE 1 APPL TOPICAL (20:59)
--- NOTE | 2022-01-17 23:35 | HO.PSYCHPN ---
Subjective Subjective Date of Service: 01/17/22 Reason For Visit: depression Subjective Notes: Conditional Voluntary Healthcare Proxy: Yes Guardianship: No Interim History: Patient has periods of irritability reactivity with others was discussed about this patient was able to reflect his behavior. He is motivated for rehabilitation denies any self-harming thoughts he is under stress history of head injury with some reactivity. Discussed history of being on a beta-july in the past Mental Status Exam Mental Status Exam Patient Appearance: Well Grooomed ( Wheelchair bound) Patient Orientation: Person Level of Consciousness: Awake Patient Behavior: Appropriate and Anxious Mood Description: Depressed and Apprehensive Affect Description: Constricted, Labile and Apprehensive Patient Cognition Impaired: No Ability to Follow Directions: Good Speech Pattern: Clear Memory Description: Episodic Impaired Hallucinations: None Delusions: Not Present Thought Process: Intact Thought Content: positive for Linear Depressive Symptoms: Increased Anxiety and Increased Irritability Judgement: Fair Judgement and Insight: Patient was able to take feedback was more reflective Diagnostics Vital Signs (24Hr): Vital Signs - 24 hr 01/17/22 06:00 01/17/22 10:39 Temperature 97.5 F Pulse Rate 83 83 Respiratory Rate 16 Blood Pressure 133/68 133/68 Pulse Oximetry 95 95 BMI result Body Mass Index 30.5 Labs Results: 12/09/21 19:15 12/09/21 19:15 Imaging Radiology Impressions: ITS Impressions Hip X-Ray 01/05/22 16:00 IMPRESSION: Healed old fracture right femoral neck. The femoral neck screws that had been present in 2010 has been removed. No acute finding. Medications Medications Current Medications Acetaminophen (Acetaminophen 325 Mg Tablet) 650 mg PO Q6H PRN PRN Reason: Pain (Scale Score 1-3) Last Admin: 01/16/22 15:16 Dose: 650 mg Documented by: Al Hydroxide/Mg Hydroxide (Magnesium Hydrox/Alum Hydrox 30 Ml Oral.Susp) 30 ml PO Q6H PRN PRN Reason: Heartburn/Nausea Last Admin: 12/16/21 14:54 Dose: 30 ml Documented by: Albuterol Sulfate (Albuterol Sulfate 90 Mcg 8 Gm Inhaler) 2 puff INHALE Q6H PRN PRN Reason: Shortness Of Breath Last Admin: 12/24/21 21:33 Dose: 2 puff Documented by: Amlodipine Besylate (Amlodipine Besylate 10 Mg Tablet) 10 mg PO DAILY [facility]; Protocol Last Admin: 01/17/22 09:26 Dose: 10 mg Documented by: Artificial Tears (Artificial Tears 15 Ml Drops) 1 drop EYE-BOTH Q1H PRN PRN Reason: Dry Eye(S) Docusate Sodium (Docusate Sodium 100 Mg Capsule) 100 mg PO BID PRN PRN Reason: Constipation Last Admin: 12/23/21 12:44 Dose: 100 mg Documented by: Finasteride (Finasteride 5 Mg Tablet) 5 mg PO DAILY [facility] Last Admin: 01/17/22 09:25 Dose: 5 mg Documented by: Gabapentin (Gabapentin 400 Mg Capsule) 400 mg PO TID [facility] Last Admin: 01/17/22 20:34 Dose: 400 mg Documented by: Hydrochlorothiazide (Hydrochlorothiazide 12.5 Mg Tablet) 12.5 mg PO DAILY [facility]; Protocol Last Admin: 01/17/22 09:26 Dose: 12.5 mg Documented by: Hydrocortisone (Hydrocortisone 1 % Cream 28.35 Gm Tube) 1 appl TOPICAL BID [facility]; Protocol Last Admin: 01/17/22 20:32 Dose: 1 appl Documented by: Hydroxyzine HCl (Hydroxyzine Hcl 25 Mg Tablet) 25 mg PO BEDTIME PRN PRN Reason: Anxiety Last Admin: 12/18/21 03:17 Dose: 25 mg Documented by: Ibuprofen (Ibuprofen 400 Mg Tablet) 400 mg PO Q6H PRN PRN Reason: Pain, Moderate (Pain Scale 4-6 Last Admin: 01/17/22 20:34 Dose: 400 mg Documented by: Lamotrigine (Lamotrigine 100 Mg Tablet) 200 mg PO BID [facility] Last Admin: 01/17/22 20:34 Dose: 200 mg Documented by: Latanoprost (Latanoprost 0.005 % Ophth No 2.5 Ml Drops) 1 drop EYE-BOTH BEDTIME [facility] Last Admin: 01/17/22 20:32 Dose: 1 drop Documented by: Lidocaine (Lidocaine 4 % Patch Adh..Patch) 1 patch TRANSDERMA DAILY [facility]; Protocol Last Admin: 01/17/22 09:32 Dose: Not Given Documented by: Lisinopril (Lisinopril 40 Mg Tablet) 40 mg PO DAILY [facility]; Protocol Last Admin: 01/17/22 09:26 Dose: 40 mg Documented by: Lorazepam (Lorazepam 0.5 Mg Tablet) 0.5 mg PO Q6H PRN PRN Reason: anxiety/restlessness Last Admin: 01/17/22 20:33 Dose: 0.5 mg Documented by: Magnesium Hydroxide (Milk Of Magnesia 30 Ml Oral.Susp) 30 ml PO Q72H PRN PRN Reason: Constipation Last Admin: 12/12/21 10:20 Dose: 30 ml Documented by: Magnesium Hydroxide (Milk Of Magnesia 30 Ml Oral.Susp) 30 ml PO DAILY PRN PRN Reason: Constipation Melatonin (Melatonin 3 Mg Tablet) 6 mg PO BEDTIME [facility] Last Admin: 01/17/22 20:34 Dose: 6 mg Documented by: Multivitamins/Vitamin C (Multivitamin Tablet) 1 tab PO DAILY [facility] Last Admin: 01/17/22 09:26 Dose: 1 tab Documented by: Nortriptyline HCl (Nortriptyline Hcl 25 Mg Capsule) 100 mg PO BEDTIME [facility] Last Admin: 01/17/22 20:32 Dose: 100 mg Documented by: Nystatin (Nystatin Cream 15 Gm Tube) 1 appl TOPICAL BID [facility]; Protocol Last Admin: 01/17/22 20:59 Dose: 1 appl Documented by: Polyethylene Glycol (Polyethylene Glycol 3350 17 Gm Powd.Pack) 17 gm PO DAILY PRN PRN Reason: Constipation Last Admin: 12/22/21 21:39 Dose: 17 gm Documented by: Polyethylene Glycol (Polyethylene Glycol 3350 17 Gm Powd.Pack) 17 gm PO DAILY@1600 [facility] Last Admin: 01/17/22 15:00 Dose: 17 gm Documented by: Pramipexole Dihydrochloride (Pramipexole Di-Hcl 0.125 Mg Tablet) 0.125 mg PO TID [facility] Last Admin: 01/17/22 20:33 Dose: 0.125 mg Documented by: Psyllium Hydrophilic Mucilloid (Psyllium Seed 3.4 Gm Powd.Pack) 3.4 gm PO DAILY [facility] Last Admin: 01/17/22 09:24 Dose: 3.4 gm Documented by: Quetiapine Fumarate (Quetiapine Fumarate 25 Mg Tablet) 25 mg PO BID PRN PRN Reason: Anxiety Last Admin: 01/15/22 17:42 Dose: 25 mg Documented by: Quetiapine Fumarate (Quetiapine Fumarate 50 Mg Tablet) 50 mg PO BEDTIME [facility] Last Admin: 01/17/22 20:34 Dose: 50 mg Documented by: Quetiapine Fumarate (Quetiapine Fumarate 50 Mg Tablet) 50 mg PO DAILY@1300 [facility] Last Admin: 01/17/22 13:32 Dose: 50 mg Documented by: Trazodone HCl (Trazodone Hcl 50 Mg Tablet) 50 mg PO BEDTIME PRN PRN Reason: Insomnia Last Admin: 01/15/22 00:48 Dose: 50 mg Documented by: Trazodone HCl (Trazodone Hcl 100 Mg Tablet) 250 mg PO BEDTIME [facility] Last Admin: 01/17/22 20:33 Dose: 250 mg Documented by: Vilazodone HCl (Vilazodone Hcl 10 Mg Tablet) 10 mg PO DAILY [facility] Last Admin: 01/17/22 09:26 Dose: 10 mg Documented by: Vitamin D (Cholecalciferol (Vitamin D3) 10 Mcg Tablet) 20 mcg PO DAILY [facility] Last Admin: 01/17/22 09:25 Dose: 20 mcg Documented by: Allergies Allergies Allergy/AdvReac Type Severity Reaction Status Date / Time fentanyl [FENTANYL] Allergy Intermediate unknown Verified 05/22/21 11:43 Assessment & Plan Assessment & Plan (1) Major depressive disorder, recurrent severe without psychotic features: Status: Acute Code(s): F33.2 - Major depressive disorder, recurrent severe without psychotic features Assessment and Plan: Encourage more adaptive skills and perspective continue nortriptyline Seroquel Ativan Lamictal will check Lamictal level Seems more motivated less depressed encouraged to go to short-term rehab this seems like appropriate referral at this time Seroquel 50 bid needs encouragement referrals to rehab setting 01/15/2022 Patient seen needed much encouragement. Discussed referral to rehab and to continue working why he was in the hospital. Also discussed the addition of Viibryd 10 mg in the morning hopefully will help with anxiety and work with nortriptyline monitor response Social work working on referral to short-term rehab setting 01/17/2022 Continue Viibryd and nortriptyline for depressive symptoms. Patient has been working Pt he had been more independent previously. We discussed use of atenolo continue phy tx referral to rehab setting l (2) Cognitive and neurobehavioral dysfunction following brain injury: Status: Acute Code(s): G31.89 - Other specified degenerative diseases of nervous system; F09 - Unspecified mental disorder due to known physiological condition; S06.9X9S - Unspecified intracranial injury with loss of consciousness of unspecified duration, sequela Assessment and Plan: Thegabapentin lamictal (3) HTN (hypertension): Status: Acute Code(s): I10 - Essential (primary) hypertension Assessment and Plan: Continue antihypertensives Plan Middle-aged male with a long history of mood symptoms with several admissions into the hospital for suicidal ideation. He also carries a diagnosis of TBI, historically he used to be highly functional but at this moment his wheelchair bounded and very angry at times. I spent minutes with the patient and/or on the patient floor today, greater than?50% of which was spent counseling/coordinating care. Reason for contiued inpatient stay Substantial Risk for: inability to function, rapid decompensation and med/psych decompensation
[2022-01-18] VITALS (9 sets, daily range): BP systolic 68–134; BP diastolic 40–85; PULSE 60–77; RESP 16–20; TEMP 36.1–36.7; O2SAT 88–98
--- NOTE | 2022-01-18 | ECG_ITS ---
Test Reason : cp Blood Pressure : / mmHG Vent. Rate : 061 BPM Atrial Rate : 000 BPM P-R Int : 000 ms QRS Dur : 100 ms QT Int : 410 ms P-R-T Axes : 000 -13 116 degrees QTc Int : 412 ms Poor data quality Normal sinus rhythm Inferior infarct , age undetermined ST & T wave abnormality, consider lateral ischemia Abnormal ECG When compared with ECG of 09-DEC-2021 19:20, Poor data quality in current ECG precludes serial comparison Referred By: Eliezer Khalil Electronically Signed By:MO HERNANDEZ MD
[2022-01-18] MEDS: LORazepam 0.5 MG TABLET PO ×2 (04:08→16:29)
--- NOTE | 2022-01-18 08:01 | HO.PSYCHPN ---
Subjective Subjective Date of Service: 01/18/22 Reason For Visit: depression Interim History: Patient reports feeling very depressed, hopeless, helpless, passive SI. He also reports pain around groin. Pt reports discussed with Dr. Haskins starting atenolol. somewhat anxious hesitant about new medications but encouraged to discuss with Dr. Fenton since he has worked with pt for 13 years. Medication Compliance: Yes Side effects from medications: No Review of Systems Review of Systems negative except HPI Yes all other systems are reviewed and are negative Mental Status Exam Mental Status Exam Patient Appearance: Well Grooomed ( Wheelchair bound) Patient Orientation: Person Level of Consciousness: Awake Patient Behavior: Appropriate and Anxious Mood Description: Depressed and Apprehensive Affect Description: Constricted, Labile and Apprehensive Patient Cognition Impaired: No Ability to Follow Directions: Good Speech Pattern: Clear Memory Description: Episodic Impaired Diagnostics Vital Signs (24Hr): Vital Signs - 24 hr 01/19/22 12:15 01/19/22 20:24 Temperature 98.1 F 97.5 F Pulse Rate 63 68 Respiratory Rate 18 18 Blood Pressure 129/60 129/61 Pulse Oximetry 96 97 BMI result Body Mass Index 30.5 Labs Results: 01/19/22 09:00 01/19/22 09:00 Labs: Laboratory Results - last 48 hr 01/18/22 01/19/22 01/19/22 18:51 09:00 09:00 WBC 6.9 RBC 3.77 L Hgb 12.3 L Hct 37.1 L MCV 98.4 H MCH 32.6 MCHC 33.2 RDW 11.4 Plt Count 179 MPV 9.4 Immature Gran % (Auto) 0.6 H Neut % (Auto) 62.1 Lymph % (Auto) 26.6 [place] % (Auto) 5.5 Eos % (Auto) 4.8 H Baso % (Auto) 0.4 Lymph # (Auto) 1.8 [place] # (Auto) 0.4 Eos # (Auto) 0.3 Baso # (Auto) 0.0 Abs Immat Gran (auto) 0.04 H Absolute Neuts (auto) 4.3 Absolute Nucleated RBC 0.000 Nucleated RBC % (auto) 0.0 Sodium 140 Potassium 4.8 Chloride 106 Carbon Dioxide 26 Anion Gap 13 BUN 25 H Creatinine 1.15 Estim Creat Clear Calc 81.5 Estimated GFR > 60 POC Glucose 106 Random Glucose 116 H Calcium 9.6 Total Bilirubin 0.2 AST 27 ALT 41 H Alkaline Phosphatase 80 Total Protein 6.5 Albumin 4.1 Imaging Radiology Impressions: ITS Impressions Hip X-Ray 01/05/22 16:00 IMPRESSION: Healed old fracture right femoral neck. The femoral neck screws that had been present in 2010 has been removed. No acute finding. Medications Medications Current Medications Acetaminophen (Acetaminophen 325 Mg Tablet) 650 mg PO Q6H PRN PRN Reason: Pain (Scale Score 1-3) Last Admin: 01/19/22 05:53 Dose: 650 mg Documented by: Al Hydroxide/Mg Hydroxide (Magnesium Hydrox/Alum Hydrox 30 Ml Oral.Susp) 30 ml PO Q6H PRN PRN Reason: Heartburn/Nausea Last Admin: 12/16/21 14:54 Dose: 30 ml Documented by: Albuterol Sulfate (Albuterol Sulfate 90 Mcg 8 Gm Inhaler) 2 puff INHALE Q6H PRN PRN Reason: Shortness Of Breath Last Admin: 12/24/21 21:33 Dose: 2 puff Documented by: Amlodipine Besylate (Amlodipine Besylate 10 Mg Tablet) 10 mg PO DAILY [facility]; Protocol Last Admin: 01/18/22 09:33 Dose: 10 mg Documented by: Artificial Tears (Artificial Tears 15 Ml Drops) 1 drop EYE-BOTH Q1H PRN PRN Reason: Dry Eye(S) Atenolol (Atenolol 25 Mg Tablet) 25 mg PO DAILY [facility]; Protocol Last Admin: 01/18/22 09:33 Dose: 25 mg Documented by: Docusate Sodium (Docusate Sodium 100 Mg Capsule) 100 mg PO BID PRN PRN Reason: Constipation Last Admin: 12/23/21 12:44 Dose: 100 mg Documented by: Finasteride (Finasteride 5 Mg Tablet) 5 mg PO DAILY [facility] Last Admin: 01/19/22 09:20 Dose: 5 mg Documented by: Gabapentin (Gabapentin 400 Mg Capsule) 400 mg PO TID [facility] Last Admin: 01/19/22 20:34 Dose: 400 mg Documented by: Hydrochlorothiazide (Hydrochlorothiazide 12.5 Mg Tablet) 12.5 mg PO DAILY [facility]; Protocol Last Admin: 01/18/22 09:34 Dose: 12.5 mg Documented by: Hydrocortisone (Hydrocortisone 1 % Cream 28.35 Gm Tube) 1 appl TOPICAL BID [facility]; Protocol Last Admin: 01/19/22 20:37 Dose: 1 appl Documented by: Hydroxyzine HCl (Hydroxyzine Hcl 25 Mg Tablet) 25 mg PO BEDTIME PRN PRN Reason: Anxiety Last Admin: 12/18/21 03:17 Dose: 25 mg Documented by: Ibuprofen (Ibuprofen 400 Mg Tablet) 400 mg PO Q6H PRN PRN Reason: Pain, Moderate (Pain Scale 4-6 Last Admin: 01/17/22 20:34 Dose: 400 mg Documented by: Lamotrigine (Lamotrigine 100 Mg Tablet) 200 mg PO BID [facility] Last Admin: 01/19/22 20:35 Dose: 200 mg Documented by: Latanoprost (Latanoprost 0.005 % Ophth No 2.5 Ml Drops) 1 drop EYE-BOTH BEDTIME [facility] Last Admin: 01/19/22 20:37 Dose: 1 drop Documented by: Lidocaine (Lidocaine 4 % Patch Adh..Patch) 1 patch TRANSDERMA DAILY [facility]; Protocol Last Admin: 01/19/22 09:22 Dose: Not Given Documented by: Lisinopril (Lisinopril 40 Mg Tablet) 40 mg PO DAILY [facility]; Protocol Last Admin: 01/18/22 09:33 Dose: 40 mg Documented by: Lorazepam (Lorazepam 0.5 Mg Tablet) 0.5 mg PO Q6H PRN PRN Reason: anxiety/restlessness Last Admin: 01/20/22 03:09 Dose: 0.5 mg Documented by: Magnesium Hydroxide (Milk Of Magnesia 30 Ml Oral.Susp) 30 ml PO Q72H PRN PRN Reason: Constipation Last Admin: 12/12/21 10:20 Dose: 30 ml Documented by: Magnesium Hydroxide (Milk Of Magnesia 30 Ml Oral.Susp) 30 ml PO DAILY PRN PRN Reason: Constipation Melatonin (Melatonin 3 Mg Tablet) 6 mg PO BEDTIME [facility] Last Admin: 01/19/22 20:34 Dose: 6 mg Documented by: Multivitamins/Vitamin C (Multivitamin Tablet) 1 tab PO DAILY [facility] Last Admin: 01/19/22 09:20 Dose: 1 tab Documented by: Nortriptyline HCl (Nortriptyline Hcl 25 Mg Capsule) 100 mg PO BEDTIME [facility] Last Admin: 01/19/22 20:35 Dose: 100 mg Documented by: Nystatin (Nystatin Cream 15 Gm Tube) 1 appl TOPICAL BID [facility]; Protocol Last Admin: 01/19/22 20:37 Dose: Not Given Documented by: Ondansetron HCl (Ondansetron Odt 4 Mg Tab.Rapdis) 4 mg TRANSLINGU Q8H PRN PRN Reason: Nausea and Vomiting Last Admin: 01/19/22 01:23 Dose: 4 mg Documented by: Polyethylene Glycol (Polyethylene Glycol 3350 17 Gm Powd.Pack) 17 gm PO DAILY PRN PRN Reason: Constipation Last Admin: 12/22/21 21:39 Dose: 17 gm Documented by: Polyethylene Glycol (Polyethylene Glycol 3350 17 Gm Powd.Pack) 17 gm PO DAILY@1600 [facility] Last Admin: 01/19/22 15:23 Dose: 17 gm Documented by: Pramipexole Dihydrochloride (Pramipexole Di-Hcl 0.125 Mg Tablet) 0.125 mg PO TID [facility] Last Admin: 01/19/22 20:35 Dose: 0.125 mg Documented by: Psyllium Hydrophilic Mucilloid (Psyllium Seed 3.4 Gm Powd.Pack) 3.4 gm PO DAILY [facility] Last Admin: 01/19/22 09:35 Dose: Not Given Documented by: Quetiapine Fumarate (Quetiapine Fumarate 25 Mg Tablet) 25 mg PO BID PRN PRN Reason: Anxiety Last Admin: 01/19/22 06:13 Dose: 25 mg Documented by: Quetiapine Fumarate (Quetiapine Fumarate 50 Mg Tablet) 50 mg PO BEDTIME [facility] Last Admin: 01/19/22 20:35 Dose: 50 mg Documented by: Quetiapine Fumarate (Quetiapine Fumarate 50 Mg Tablet) 50 mg PO DAILY@1300 [facility] Last Admin: 01/19/22 14:58 Dose: 50 mg Documented by: Trazodone HCl (Trazodone Hcl 50 Mg Tablet) 50 mg PO BEDTIME PRN PRN Reason: Insomnia Last Admin: 01/15/22 00:48 Dose: 50 mg Documented by: Trazodone HCl (Trazodone Hcl 100 Mg Tablet) 250 mg PO BEDTIME [facility] Last Admin: 01/19/22 20:35 Dose: 250 mg Documented by: Vilazodone HCl (Vilazodone Hcl 10 Mg Tablet) 10 mg PO DAILY [facility] Last Admin: 01/19/22 09:21 Dose: 10 mg Documented by: Vitamin D (Cholecalciferol (Vitamin D3) 10 Mcg Tablet) 20 mcg PO DAILY [facility] Last Admin: 01/19/22 09:22 Dose: 20 mcg Documented by: Allergies Allergies Allergy/AdvReac Type Severity Reaction Status Date / Time fentanyl [FENTANYL] Allergy Intermediate unknown Verified 05/22/21 11:43 Assessment & Plan Assessment & Plan (1) Major depressive disorder, recurrent severe without psychotic features: Status: Acute Code(s): F33.2 - Major depressive disorder, recurrent severe without psychotic features Assessment and Plan: Encourage more adaptive skills and perspective continue nortriptyline Seroquel Ativan Lamictal will check Lamictal level Seems more motivated less depressed encouraged to go to short-term rehab this seems like appropriate referral at this time Seroquel 50 bid needs encouragement referrals to rehab setting 01/15/2022 Patient seen needed much encouragement. Discussed referral to rehab and to continue working why he was in the hospital. Also discussed the addition of Viibryd 10 mg in the morning hopefully will help with anxiety and work with nortriptyline monitor response Social work working on referral to short-term rehab setting 01/17/2022 Continue Viibryd and nortriptyline for depressive symptoms. Patient has been working Pt he had been more independent previously. We discussed use of atenolo continue phy tx referral to rehab setting l 01/18 continue current medications. (2) Cognitive and neurobehavioral dysfunction following brain injury: Status: Acute Code(s): G31.89 - Other specified degenerative diseases of nervous system; F09 - Unspecified mental disorder due to known physiological condition; S06.9X9S - Unspecified intracranial injury with loss of consciousness of unspecified duration, sequela Assessment and Plan: Thegabapentin lamictal (3) HTN (hypertension): Status: Acute Code(s): I10 - Essential (primary) hypertension Assessment and Plan: Continue antihypertensives Plan Middle-aged male with a long history of mood symptoms with several admissions into the hospital for suicidal ideation. He also carries a diagnosis of TBI, historically he used to be highly functional but at this moment his wheelchair bounded and very angry at times. I spent minutes with the patient and/or on the patient floor today, greater than?50% of which was spent counseling/coordinating care. Reason for contiued inpatient stay Substantial Risk for: inability to function
[2022-01-18] MEDS: lisinopriL 40 MG TABLET PO (09:33)
[2022-01-18] MEDS: lamoTRIgine 100 MG TABLET 200 MG PO ×2 (09:33→22:14)
[2022-01-18] MEDS: atenoloL 25 MG TABLET PO (09:33)
[2022-01-18] MEDS: Finasteride 5 MG TABLET PO (09:33)
[2022-01-18] MEDS: Multivitamin TABLET 1 TAB PO (09:33)
[2022-01-18] MEDS: Gabapentin 400 MG CAPSULE PO ×3 (09:33→22:09)
[2022-01-18] MEDS: Cholecalciferol (Vitamin D3) 10 MCG TABLET 20 MCG PO (09:33)
[2022-01-18] MEDS: amLODIPine Besylate 10 MG TABLET PO (09:33)
[2022-01-18] MEDS: Vilazodone HCL 10 MG TABLET PO (09:34)
[2022-01-18] MEDS: Pramipexole Di-HCL 0.125 MG TABLET PO ×3 (09:34→22:13)
[2022-01-18] MEDS: hydroCHLOROthiazide 12.5 MG TABLET PO (09:34)
[2022-01-18] MEDS: Acetaminophen 325 MG TABLET 650 MG PO ×2 (09:41→16:28)
[2022-01-18] MEDS: QUEtiapine Fumarate 50 MG TABLET PO ×2 (13:06→22:11)
--- NOTE | 2022-01-18 18:56 | PM.EVENT ---
Event Note Date of Service: 01/18/22 Event Note: [facility] OPERATOR called for lightheadedness while having large BM, SBP in 60s, likely vagal, patient never fully syncopized, was trasnferred to bed, bp improved to 90s, poc 103, will give 1L NS, monitor for now.
[2022-01-18 18:57] LABS: Glucose, Whole Blood 106 mg/dL (60-115)
--- NOTE | 2022-01-18 19:47 | PC.NURSE ---
Pt reported by DILIP Jenkins, to be on the toilet c/o dizziness, feeling unwell. Pt vital signs taken, BP:68/40; P: 60; T: 97.7; R: btwen 18-22; O2 at 88. Rapid response called for assistance. Please check chart for further vital signs. The pt was transferred to his bed with assistance from staff present. Dr Khalil ordered 1 ltr of fluid via IV, running presently at 999/hour. Pt with 1:1 present as he has an IV. Advised by hospitalist to report VS when fluid is done. Pt resting comfortably in bed at this time, denies dizziness/nausea.
[2022-01-18] MEDS: 0.9 % Sodium Chloride 500 ML IV (22:04)
[2022-01-18] MEDS: Melatonin 3 MG TABLET 6 MG PO (22:10)
[2022-01-18] MEDS: Nortriptyline HCl 25 MG CAPSULE 100 MG PO (22:12)
[2022-01-18] MEDS: traZODone HCL 100 MG TABLET 250 MG PO (22:14)
[2022-01-18] MEDS: Latanoprost 0.005 % Ophth Sol 2.5 ML DROPS 1 DROP EYE-BOTH (22:27)
--- NOTE | 2022-01-19 00:06 | PC.NURSE ---
Addendum entered by Corbin Workman RN 01/19/22 00:26: PLEASE NOTE AM-B/P MED ON HOLD PER . Original Note: have contacted dr clemens post iv crystolloid administration- 1. pt is mentating/neuros intact 2. skin turgor decreased looks dry 3. sbp in the 130s mmhg. 4. sao2 96-97% 5. apical hr 65-70 bpm 6. voided 125 ml 7.bladder scan 320 ml 8. drinking fluids readily-plan 1. encourage po 2. review b/p meds in am prior to administration 3. will order am labs. also contacted Zarina Schmitz- notified 1. iv fluids have completed 2. no further iv fluids per hospitalist 3. vital signs stable 4. will leave prn iv adapt in place. plan 1. pt does not require 1 to 1 sitter at this juncture.
[2022-01-19 00:34] VITALS: BP 115/58; PULSE 58; RESP 16; O2SAT 95
[2022-01-19] MEDS: Ondansetron ODT 4 MG TAB.RAPDIS TRANSLINGU (01:23)
--- NOTE | 2022-01-19 01:23 | PC.NURSE ---
emergent override of zofran. I was only able to override 8 mg odt. 4 mg 1/2 odt zofran tab administered.
[2022-01-19] MEDS: Acetaminophen 325 MG TABLET 650 MG PO (05:53)
--- NOTE | 2022-01-19 05:56 | PC.NURSE ---
responded to call dwyer and found pt holding iv angio in hand. pt states that the tape was bothering him and he removed iv angio. direct pressure applied to right arm previous iv insertion site. hemostasis achieved and gauze and band aid applied.
[2022-01-19] MEDS: QUEtiapine Fumarate 25 MG TABLET PO (06:13)
--- NOTE | 2022-01-19 08:03 | HO.PSYCHPN ---
Subjective Subjective Date of Service: 01/19/22 Reason For Visit: depression Subjective Notes: Conditional Voluntary Interim History: Last night, pt had episode of SBP 60, rapid called, pt seen by Dr. Khaill, given IV fluids. BP more stable this mornining, all HTN meds on hold. Patient continues reports feeling very depressed, hopeless, helpless, passive SI. He also reports pain around groin. Pt reports discussed with Dr. Haskins further medication changes. somewhat anxious hesitant about new medications but encouraged to discuss with Dr. Fenton since he has worked with pt for 13 years. Review of Systems Review of Systems negative except HPI Yes all other systems are reviewed and are negative Mental Status Exam Mental Status Exam Patient Appearance: Well Grooomed ( Wheelchair bound) Patient Orientation: Person Level of Consciousness: Awake Patient Behavior: Appropriate and Anxious Mood Description: Depressed and Apprehensive Affect Description: Constricted, Labile and Apprehensive Patient Cognition Impaired: No Ability to Follow Directions: Good Speech Pattern: Clear Memory Description: Episodic Impaired Diagnostics Vital Signs (24Hr): Vital Signs - 24 hr 01/19/22 12:15 01/19/22 20:24 Temperature 98.1 F 97.5 F Pulse Rate 63 68 Respiratory Rate 18 18 Blood Pressure 129/60 129/61 Pulse Oximetry 96 97 BMI result Body Mass Index 30.5 Labs Results: 01/19/22 09:00 01/19/22 09:00 Labs: Laboratory Results - last 48 hr 01/18/22 01/19/22 01/19/22 18:51 09:00 09:00 WBC 6.9 RBC 3.77 L Hgb 12.3 L Hct 37.1 L MCV 98.4 H MCH 32.6 MCHC 33.2 RDW 11.4 Plt Count 179 MPV 9.4 Immature Gran % (Auto) 0.6 H Neut % (Auto) 62.1 Lymph % (Auto) 26.6 Holmes % (Auto) 5.5 Eos % (Auto) 4.8 H Baso % (Auto) 0.4 Lymph # (Auto) 1.8 Holmes # (Auto) 0.4 Eos # (Auto) 0.3 Baso # (Auto) 0.0 Abs Immat Gran (auto) 0.04 H Absolute Neuts (auto) 4.3 Absolute Nucleated RBC 0.000 Nucleated RBC % (auto) 0.0 Sodium 140 Potassium 4.8 Chloride 106 Carbon Dioxide 26 Anion Gap 13 BUN 25 H Creatinine 1.15 Estim Creat Clear Calc 81.5 Estimated GFR > 60 POC Glucose 106 Random Glucose 116 H Calcium 9.6 Total Bilirubin 0.2 AST 27 ALT 41 H Alkaline Phosphatase 80 Total Protein 6.5 Albumin 4.1 Imaging Radiology Impressions: ITS Impressions Hip X-Ray 01/05/22 16:00 IMPRESSION: Healed old fracture right femoral neck. The femoral neck screws that had been present in 2010 has been removed. No acute finding. Medications Medications Current Medications Acetaminophen (Acetaminophen 325 Mg Tablet) 650 mg PO Q6H PRN PRN Reason: Pain (Scale Score 1-3) Last Admin: 01/19/22 05:53 Dose: 650 mg Documented by: Al Hydroxide/Mg Hydroxide (Magnesium Hydrox/Alum Hydrox 30 Ml Oral.Susp) 30 ml PO Q6H PRN PRN Reason: Heartburn/Nausea Last Admin: 12/16/21 14:54 Dose: 30 ml Documented by: Albuterol Sulfate (Albuterol Sulfate 90 Mcg 8 Gm Inhaler) 2 puff INHALE Q6H PRN PRN Reason: Shortness Of Breath Last Admin: 12/24/21 21:33 Dose: 2 puff Documented by: Amlodipine Besylate (Amlodipine Besylate 10 Mg Tablet) 10 mg PO DAILY [facility]Z; Protocol Last Admin: 01/18/22 09:33 Dose: 10 mg Documented by: Artificial Tears (Artificial Tears 15 Ml Drops) 1 drop EYE-BOTH Q1H PRN PRN Reason: Dry Eye(S) Atenolol (Atenolol 25 Mg Tablet) 25 mg PO DAILY TAZ; Protocol Last Admin: 01/18/22 09:33 Dose: 25 mg Documented by: Docusate Sodium (Docusate Sodium 100 Mg Capsule) 100 mg PO BID PRN PRN Reason: Constipation Last Admin: 12/23/21 12:44 Dose: 100 mg Documented by: Finasteride (Finasteride 5 Mg Tablet) 5 mg PO DAILY REPLACED BY [facility] Last Admin: 01/19/22 09:20 Dose: 5 mg Documented by: Gabapentin (Gabapentin 400 Mg Capsule) 400 mg PO TID REPLACED BY [facility] Last Admin: 01/19/22 20:34 Dose: 400 mg Documented by: Hydrochlorothiazide (Hydrochlorothiazide 12.5 Mg Tablet) 12.5 mg PO DAILY REPLACED BY [facility]; Protocol Last Admin: 01/18/22 09:34 Dose: 12.5 mg Documented by: Hydrocortisone (Hydrocortisone 1 % Cream 28.35 Gm Tube) 1 appl TOPICAL BID TAZ; Protocol Last Admin: 01/19/22 20:37 Dose: 1 appl Documented by: Hydroxyzine HCl (Hydroxyzine Hcl 25 Mg Tablet) 25 mg PO BEDTIME PRN PRN Reason: Anxiety Last Admin: 12/18/21 03:17 Dose: 25 mg Documented by: Ibuprofen (Ibuprofen 400 Mg Tablet) 400 mg PO Q6H PRN PRN Reason: Pain, Moderate (Pain Scale 4-6 Last Admin: 01/17/22 20:34 Dose: 400 mg Documented by: Lamotrigine (Lamotrigine 100 Mg Tablet) 200 mg PO BID [facility]Z Last Admin: 01/19/22 20:35 Dose: 200 mg Documented by: Latanoprost (Latanoprost 0.005 % Ophth No 2.5 Ml Drops) 1 drop EYE-BOTH BEDTIME [facility]Z Last Admin: 01/19/22 20:37 Dose: 1 drop Documented by: Lidocaine (Lidocaine 4 % Patch Adh..Patch) 1 patch TRANSDERMA DAILY [facility]; Protocol Last Admin: 01/19/22 09:22 Dose: Not Given Documented by: Lisinopril (Lisinopril 40 Mg Tablet) 40 mg PO DAILY [facility]; Protocol Last Admin: 01/18/22 09:33 Dose: 40 mg Documented by: Lorazepam (Lorazepam 0.5 Mg Tablet) 0.5 mg PO Q6H PRN PRN Reason: anxiety/restlessness Last Admin: 01/20/22 03:09 Dose: 0.5 mg Documented by: Magnesium Hydroxide (Milk Of Magnesia 30 Ml Oral.Susp) 30 ml PO Q72H PRN PRN Reason: Constipation Last Admin: 12/12/21 10:20 Dose: 30 ml Documented by: Magnesium Hydroxide (Milk Of Magnesia 30 Ml Oral.Susp) 30 ml PO DAILY PRN PRN Reason: Constipation Melatonin (Melatonin 3 Mg Tablet) 6 mg PO BEDTIME TAZ Last Admin: 01/19/22 20:34 Dose: 6 mg Documented by: Multivitamins/Vitamin C (Multivitamin Tablet) 1 tab PO DAILY [facility] Last Admin: 01/19/22 09:20 Dose: 1 tab Documented by: Nortriptyline HCl (Nortriptyline Hcl 25 Mg Capsule) 100 mg PO BEDTIME [facility]Z Last Admin: 01/19/22 20:35 Dose: 100 mg Documented by: Nystatin (Nystatin Cream 15 Gm Tube) 1 appl TOPICAL BID REPLACED BY [facility]; Protocol Last Admin: 01/19/22 20:37 Dose: Not Given Documented by: Ondansetron HCl (Ondansetron Odt 4 Mg Tab.Rapdis) 4 mg TRANSLINGU Q8H PRN PRN Reason: Nausea and Vomiting Last Admin: 01/19/22 01:23 Dose: 4 mg Documented by: Polyethylene Glycol (Polyethylene Glycol 3350 17 Gm Powd.Pack) 17 gm PO DAILY PRN PRN Reason: Constipation Last Admin: 12/22/21 21:39 Dose: 17 gm Documented by: Polyethylene Glycol (Polyethylene Glycol 3350 17 Gm Powd.Pack) 17 gm PO DAILY@1600 REPLACED BY [facility] Last Admin: 01/19/22 15:23 Dose: 17 gm Documented by: Pramipexole Dihydrochloride (Pramipexole Di-Hcl 0.125 Mg Tablet) 0.125 mg PO TID REPLACED BY [facility] Last Admin: 01/19/22 20:35 Dose: 0.125 mg Documented by: Psyllium Hydrophilic Mucilloid (Psyllium Seed 3.4 Gm Powd.Pack) 3.4 gm PO DAILY REPLACED BY [facility] Last Admin: 01/19/22 09:35 Dose: Not Given Documented by: Quetiapine Fumarate (Quetiapine Fumarate 25 Mg Tablet) 25 mg PO BID PRN PRN Reason: Anxiety Last Admin: 01/19/22 06:13 Dose: 25 mg Documented by: Quetiapine Fumarate (Quetiapine Fumarate 50 Mg Tablet) 50 mg PO BEDTIME REPLACED BY [facility] Last Admin: 01/19/22 20:35 Dose: 50 mg Documented by: Quetiapine Fumarate (Quetiapine Fumarate 50 Mg Tablet) 50 mg PO DAILY@1300 REPLACED BY [facility] Last Admin: 01/19/22 14:58 Dose: 50 mg Documented by: Trazodone HCl (Trazodone Hcl 50 Mg Tablet) 50 mg PO BEDTIME PRN PRN Reason: Insomnia Last Admin: 01/15/22 00:48 Dose: 50 mg Documented by: Trazodone HCl (Trazodone Hcl 100 Mg Tablet) 250 mg PO BEDTIME REPLACED BY [facility] Last Admin: 01/19/22 20:35 Dose: 250 mg Documented by: Vilazodone HCl (Vilazodone Hcl 10 Mg Tablet) 10 mg PO DAILY REPLACED BY [facility] Last Admin: 01/19/22 09:21 Dose: 10 mg Documented by: Vitamin D (Cholecalciferol (Vitamin D3) 10 Mcg Tablet) 20 mcg PO DAILY REPLACED BY [facility] Last Admin: 01/19/22 09:22 Dose: 20 mcg Documented by: Allergies Allergies Allergy/AdvReac Type Severity Reaction Status Date / Time fentanyl [FENTANYL] Allergy Intermediate unknown Verified 05/22/21 11:43 Assessment & Plan Assessment & Plan (1) Major depressive disorder, recurrent severe without psychotic features: Status: Acute Code(s): F33.2 - Major depressive disorder, recurrent severe without psychotic features Assessment and Plan: Encourage more adaptive skills and perspective continue nortriptyline Seroquel Ativan Lamictal will check Lamictal level Seems more motivated less depressed encouraged to go to short-term rehab this seems like appropriate referral at this time Seroquel 50 bid needs encouragement referrals to rehab setting 01/15/2022 Patient seen needed much encouragement. Discussed referral to rehab and to continue working why he was in the hospital. Also discussed the addition of Viibryd 10 mg in the morning hopefully will help with anxiety and work with nortriptyline monitor response Social work working on referral to short-term rehab setting 01/17/2022 Continue Viibryd and nortriptyline for depressive symptoms. Patient has been working Pt he had been more independent previously. We discussed use of atenolo continue phy tx referral to rehab setting l 01/18 continue current medications. 01/19: HTN meds on hold due to low BP. CMP, CBC added. noted macrositic anemia- ?low b12 levels. (2) Cognitive and neurobehavioral dysfunction following brain injury: Status: Acute Code(s): G31.89 - Other specified degenerative diseases of nervous system; F09 - Unspecified mental disorder due to known physiological condition; S06.9X9S - Unspecified intracranial injury with loss of consciousness of unspecified duration, sequela Assessment and Plan: Thegabapentin lamictal (3) HTN (hypertension): Status: Acute Code(s): I10 - Essential (primary) hypertension Assessment and Plan: Continue antihypertensives Plan Middle-aged male with a long history of mood symptoms with several admissions into the hospital for suicidal ideation. He also carries a diagnosis of TBI, historically he used to be highly functional but at this moment his wheelchair bounded and very angry at times. I spent minutes with the patient and/or on the patient floor today, greater than?50% of which was spent counseling/coordinating care. Reason for contiued inpatient stay Substantial Risk for: inability to function
[2022-01-19 09:03] LABS: MANUAL DIFF FLAG NO
[2022-01-19 09:05] LABS: Basophils Percent Auto 0.4 % (0-2); Eosinophils Absolute Auto 0.3 X10*3/uL (0.0-0.4); Eosinophils Percent Auto 4.8 % (0-4); Hematocrit 37.1 % (42.0-52.0); Hemoglobin 12.3 g/dl (14.0-18.0); Imm Gran Abs Auto 0.04 X10*3/uL (0.00-0.03); Imm Gran Pct Auto 0.6 % (0.0-0.4); Lymphocytes Absolute Auto 1.8 X10*3/uL (1.2-4.9); Lymphocytes Percent Auto 26.6 % (20-40); Mean Corpuscular HGB Conc 33.2 g/dl (31.0-36.0); Mean Corpuscular Hemoglobin 32.6 pg (27.0-33.0); Mean Corpuscular Volume 98.4 fL (80.0-98.0); Mean Platelet Volume 9.4 fL (9.4-12.4); Monocytes Absolute Auto 0.4 X10*3/uL (0.1-1.2); Monocytes Percent Auto 5.5 % (2-11); Neutrophils Absolute Auto 4.3 x10*3/uL (2.0-8.3); Neutrophils Percent Auto 62.1 % (45-73); Platelet Count 179 X10*3/uL (160-400); Red Blood Count 3.77 X10*6/uL (4.60-5.80); Red Cell Distribution Width 11.4 % (11.0-16.0); White Blood Count 6.9 X10*3/uL (4.8-10.8)
[2022-01-19] MEDS: Finasteride 5 MG TABLET PO (09:20)
[2022-01-19] MEDS: Multivitamin TABLET 1 TAB PO (09:20)
[2022-01-19] MEDS: Vilazodone HCL 10 MG TABLET PO (09:21)
[2022-01-19] MEDS: lamoTRIgine 100 MG TABLET 200 MG PO ×2 (09:21→20:35)
[2022-01-19] MEDS: Cholecalciferol (Vitamin D3) 10 MCG TABLET 20 MCG PO (09:22)
[2022-01-19] MEDS: Pramipexole Di-HCL 0.125 MG TABLET PO ×3 (09:22→20:35)
[2022-01-19] MEDS: Gabapentin 400 MG CAPSULE PO ×3 (09:22→20:34)
[2022-01-19 09:27] LABS: Alanine Aminotransferase 41 U/L (0-40); Albumin Level 4.1 g/dL (3.5-5.0); Alkaline Phosphatase 80 U/L (39-117); Anion Gap 13 (12-20); Aspartate Amino Transferase 27 U/L (5-37); Bilirubin Total 0.2 mg/dL (0.0-1.0); Blood Urea Nitrogen 25 mg/dL (9-16); Calcium 9.6 mg/dL (8.4-10.2); Carbon Dioxide 26 mmol/L (22-29); Chloride 106 mmol/L (96-108); Creatinine Clr Calc Pharmacy 81.5; Estimated Glomerular Filt Rate > 60; Glucose Random 116 mg/dL (60-115); Potassium 4.8 mmol/L (3.3-5.1); Sodium 140 mmol/L (135-145); Total Protein 6.5 g/dL (6.5-8.0)
[2022-01-19 12:15] VITALS: BP 129/60; PULSE 63; RESP 18; TEMP 36.7; O2SAT 96
--- NOTE | 2022-01-19 12:16 | PC.NURSE ---
Vitals taken at 1215 as pt reported feeling not well . Pt BP at 129/60, O2 at 96% on RA. Pt encouraged to hydrate and eat lunch.
[2022-01-19] MEDS: QUEtiapine Fumarate 50 MG TABLET PO ×2 (14:58→20:35)
[2022-01-19] MEDS: polyethylene glycoL 3350 17 GM POWD.PACK PO (15:23)
[2022-01-19 20:24] VITALS: BP 129/61; PULSE 68; RESP 18; TEMP 36.4; O2SAT 97
[2022-01-19] MEDS: Melatonin 3 MG TABLET 6 MG PO (20:34)
[2022-01-19] MEDS: Nortriptyline HCl 25 MG CAPSULE 100 MG PO (20:35)
[2022-01-19] MEDS: traZODone HCL 100 MG TABLET 250 MG PO (20:35)
[2022-01-19] MEDS: Hydrocortisone 1 % Cream 28.35 GM TUBE 1 APPL TOPICAL (20:37)
[2022-01-19] MEDS: Latanoprost 0.005 % Ophth Sol 2.5 ML DROPS 1 DROP EYE-BOTH (20:37)
[2022-01-20] MEDS: LORazepam 0.5 MG TABLET PO (03:09)
[2022-01-20 07:35] VITALS: BP 138/74; PULSE 78; RESP 16; TEMP 36.7; O2SAT 100
[2022-01-20] MEDS: Finasteride 5 MG TABLET PO (09:01)
[2022-01-20] MEDS: Gabapentin 400 MG CAPSULE PO ×3 (09:01→21:00)
[2022-01-20] MEDS: Multivitamin TABLET 1 TAB PO (09:01)
[2022-01-20] MEDS: lamoTRIgine 100 MG TABLET 200 MG PO ×2 (09:01→20:37)
[2022-01-20] MEDS: Cholecalciferol (Vitamin D3) 10 MCG TABLET 20 MCG PO (09:01)
[2022-01-20] MEDS: Pramipexole Di-HCL 0.125 MG TABLET PO ×3 (09:02→21:03)
[2022-01-20] MEDS: Vilazodone HCL 10 MG TABLET PO (09:46)
[2022-01-20] MEDS: QUEtiapine Fumarate 50 MG TABLET PO ×2 (14:11→20:37)
[2022-01-20] MEDS: polyethylene glycoL 3350 17 GM POWD.PACK PO (14:36)
[2022-01-20] MEDS: Acetaminophen 325 MG TABLET 650 MG PO (14:47)
--- NOTE | 2022-01-20 16:38 | HO.PSYCHPN ---
Subjective Subjective Date of Service: 01/20/22 Reason For Visit: depression Subjective Notes: Conditional Voluntary Interim History: Patient seen in psychiatric follow-up. Patient hypotensive episode couple of days ago in the hypertensives on hold. Patient has been depressed anxious somewhat irritable reactive can be overwhelmed with stress and whether not he will be able to get into rehab he is quite motivated for this Mental Status Exam Mental Status Exam Patient Appearance: Well Grooomed ( Wheelchair bound) Patient Orientation: Person Level of Consciousness: Awake Patient Behavior: Appropriate and Anxious Mood Description: Depressed and Apprehensive Affect Description: Constricted, Labile and Apprehensive Patient Cognition Impaired: No Ability to Follow Directions: Good Speech Pattern: Clear Memory Description: Episodic Impaired Delusions: Not Present Thought Process: Rumination Depressive Symptoms: Increased Anxiety and Feelings of Worthlessness Judgement: Fair Diagnostics Vital Signs (24Hr): Vital Signs - 24 hr 01/19/22 20:24 01/20/22 07:35 Temperature 97.5 F 98.0 F Pulse Rate 68 78 Respiratory Rate 18 16 Blood Pressure 129/61 138/74 Pulse Oximetry 97 100 BMI result Body Mass Index 30.5 Labs Results: 01/19/22 09:00 01/19/22 09:00 Labs: Laboratory Results - last 48 hr 01/18/22 01/19/22 01/19/22 18:51 09:00 09:00 WBC 6.9 RBC 3.77 L Hgb 12.3 L Hct 37.1 L MCV 98.4 H MCH 32.6 MCHC 33.2 RDW 11.4 Plt Count 179 MPV 9.4 Immature Gran % (Auto) 0.6 H Neut % (Auto) 62.1 Lymph % (Auto) 26.6 Forrest % (Auto) 5.5 Eos % (Auto) 4.8 H Baso % (Auto) 0.4 Lymph # (Auto) 1.8 Forrest # (Auto) 0.4 Eos # (Auto) 0.3 Baso # (Auto) 0.0 Abs Immat Gran (auto) 0.04 H Absolute Neuts (auto) 4.3 Absolute Nucleated RBC 0.000 Nucleated RBC % (auto) 0.0 Sodium 140 Potassium 4.8 Chloride 106 Carbon Dioxide 26 Anion Gap 13 BUN 25 H Creatinine 1.15 Estim Creat Clear Calc 81.5 Estimated GFR > 60 POC Glucose 106 Random Glucose 116 H Calcium 9.6 Total Bilirubin 0.2 AST 27 ALT 41 H Alkaline Phosphatase 80 Total Protein 6.5 Albumin 4.1 Imaging Radiology Impressions: ITS Impressions Hip X-Ray 01/05/22 16:00 IMPRESSION: Healed old fracture right femoral neck. The femoral neck screws that had been present in 2010 has been removed. No acute finding. Medications Medications Current Medications Acetaminophen (Acetaminophen 325 Mg Tablet) 650 mg PO Q6H PRN PRN Reason: Pain (Scale Score 1-3) Last Admin: 01/20/22 14:47 Dose: 650 mg Documented by: Al Hydroxide/Mg Hydroxide (Magnesium Hydrox/Alum Hydrox 30 Ml Oral.Susp) 30 ml PO Q6H PRN PRN Reason: Heartburn/Nausea Last Admin: 12/16/21 14:54 Dose: 30 ml Documented by: Albuterol Sulfate (Albuterol Sulfate 90 Mcg 8 Gm Inhaler) 2 puff INHALE Q6H PRN PRN Reason: Shortness Of Breath Last Admin: 12/24/21 21:33 Dose: 2 puff Documented by: Amlodipine Besylate (Amlodipine Besylate 5 Mg Tablet) 5 mg PO DAILY [facility]; Protocol Artificial Tears (Artificial Tears 15 Ml Drops) 1 drop EYE-BOTH Q1H PRN PRN Reason: Dry Eye(S) Atenolol (Atenolol 25 Mg Tablet) 25 mg PO DAILY [facility]; Protocol Last Admin: 01/18/22 09:33 Dose: 25 mg Documented by: Docusate Sodium (Docusate Sodium 100 Mg Capsule) 100 mg PO BID PRN PRN Reason: Constipation Last Admin: 12/23/21 12:44 Dose: 100 mg Documented by: Finasteride (Finasteride 5 Mg Tablet) 5 mg PO DAILY TAZ Last Admin: 01/20/22 09:01 Dose: 5 mg Documented by: Gabapentin (Gabapentin 400 Mg Capsule) 400 mg PO TID TAZ Last Admin: 01/20/22 14:14 Dose: 400 mg Documented by: Hydrocortisone (Hydrocortisone 1 % Cream 28.35 Gm Tube) 1 appl TOPICAL BID [facility]; Protocol Last Admin: 01/20/22 09:02 Dose: Not Given Documented by: Hydroxyzine HCl (Hydroxyzine Hcl 25 Mg Tablet) 25 mg PO BEDTIME PRN PRN Reason: Anxiety Last Admin: 12/18/21 03:17 Dose: 25 mg Documented by: Ibuprofen (Ibuprofen 400 Mg Tablet) 400 mg PO Q6H PRN PRN Reason: Pain, Moderate (Pain Scale 4-6 Last Admin: 01/17/22 20:34 Dose: 400 mg Documented by: Lamotrigine (Lamotrigine 100 Mg Tablet) 200 mg PO BID [facility] Last Admin: 01/20/22 09:01 Dose: 200 mg Documented by: Latanoprost (Latanoprost 0.005 % Ophth No 2.5 Ml Drops) 1 drop EYE-BOTH BEDTIME [facility] Last Admin: 01/19/22 20:37 Dose: 1 drop Documented by: Lidocaine (Lidocaine 4 % Patch Adh..Patch) 1 patch TRANSDERMA DAILY [facility]; Protocol Last Admin: 01/20/22 09:02 Dose: Not Given Documented by: Lisinopril (Lisinopril 20 Mg Tablet) 20 mg PO DAILY [facility]; Protocol Magnesium Hydroxide (Milk Of Magnesia 30 Ml Oral.Susp) 30 ml PO Q72H PRN PRN Reason: Constipation Last Admin: 12/12/21 10:20 Dose: 30 ml Documented by: Magnesium Hydroxide (Milk Of Magnesia 30 Ml Oral.Susp) 30 ml PO DAILY PRN PRN Reason: Constipation Melatonin (Melatonin 3 Mg Tablet) 6 mg PO BEDTIME [facility] Last Admin: 01/19/22 20:34 Dose: 6 mg Documented by: Multivitamins/Vitamin C (Multivitamin Tablet) 1 tab PO DAILY [facility] Last Admin: 01/20/22 09:01 Dose: 1 tab Documented by: Nortriptyline HCl (Nortriptyline Hcl 25 Mg Capsule) 100 mg PO BEDTIME [facility] Last Admin: 01/19/22 20:35 Dose: 100 mg Documented by: Nystatin (Nystatin Cream 15 Gm Tube) 1 appl TOPICAL BID [facility]; Protocol Last Admin: 01/20/22 09:02 Dose: Not Given Documented by: Ondansetron HCl (Ondansetron Odt 4 Mg Tab.Rapdis) 4 mg TRANSLINGU Q8H PRN PRN Reason: Nausea and Vomiting Last Admin: 01/19/22 01:23 Dose: 4 mg Documented by: Polyethylene Glycol (Polyethylene Glycol 3350 17 Gm Powd.Pack) 17 gm PO DAILY PRN PRN Reason: Constipation Last Admin: 12/22/21 21:39 Dose: 17 gm Documented by: Polyethylene Glycol (Polyethylene Glycol 3350 17 Gm Powd.Pack) 17 gm PO DAILY@1600 [facility] Last Admin: 01/20/22 14:36 Dose: 17 gm Documented by: Pramipexole Dihydrochloride (Pramipexole Di-Hcl 0.125 Mg Tablet) 0.125 mg PO TID [facility] Last Admin: 01/20/22 14:11 Dose: 0.125 mg Documented by: Psyllium Hydrophilic Mucilloid (Psyllium Seed 3.4 Gm Powd.Pack) 3.4 gm PO DAILY [facility] Last Admin: 01/20/22 09:01 Dose: 3.4 gm Documented by: Quetiapine Fumarate (Quetiapine Fumarate 25 Mg Tablet) 25 mg PO BID PRN PRN Reason: Anxiety Last Admin: 01/19/22 06:13 Dose: 25 mg Documented by: Quetiapine Fumarate (Quetiapine Fumarate 50 Mg Tablet) 50 mg PO BEDTIME [facility] Last Admin: 01/19/22 20:35 Dose: 50 mg Documented by: Quetiapine Fumarate (Quetiapine Fumarate 50 Mg Tablet) 50 mg PO DAILY@1300 [facility] Last Admin: 01/20/22 14:11 Dose: 50 mg Documented by: Trazodone HCl (Trazodone Hcl 50 Mg Tablet) 50 mg PO BEDTIME PRN PRN Reason: Insomnia Last Admin: 01/15/22 00:48 Dose: 50 mg Documented by: Trazodone HCl (Trazodone Hcl 100 Mg Tablet) 250 mg PO BEDTIME [facility] Last Admin: 01/19/22 20:35 Dose: 250 mg Documented by: Vilazodone HCl (Vilazodone Hcl 20 Mg Tablet) 20 mg PO DAILY [facility] Vitamin D (Cholecalciferol (Vitamin D3) 10 Mcg Tablet) 20 mcg PO DAILY [facility] Last Admin: 01/20/22 09:01 Dose: 20 mcg Documented by: Allergies Allergies Allergy/AdvReac Type Severity Reaction Status Date / Time fentanyl [FENTANYL] Allergy Intermediate unknown Verified 05/22/21 11:43 Assessment & Plan Assessment & Plan (1) Major depressive disorder, recurrent severe without psychotic features: Status: Acute Code(s): F33.2 - Major depressive disorder, recurrent severe without psychotic features Assessment and Plan: Encourage more adaptive skills and perspective continue nortriptyline Seroquel Ativan Lamictal will check Lamictal level Seems more motivated less depressed encouraged to go to short-term rehab this seems like appropriate referral at this time Seroquel 50 bid needs encouragement referrals to rehab setting 01/15/2022 Patient seen needed much encouragement. Discussed referral to rehab and to continue working why he was in the hospital. Also discussed the addition of Viibryd 10 mg in the morning hopefully will help with anxiety and work with nortriptyline monitor response Social work working on referral to short-term rehab setting 01/17/2022 Continue Viibryd and nortriptyline for depressive symptoms. Patient has been working Pt he had been more independent previously. We discussed use of atenolo continue phy tx referral to rehab setting l 01/18 continue current medications. 01/19: HTN meds on hold due to low BP. CMP, CBC added. Three 01/20/2022 Patient seen in psychiatric follow-up. Patient somewhat demoralized has been quite motivated for rehab setting increase Viibryd to 20 mg daily restart antihypertensives at low-dose secondary to a hypotensive episode vasovagal question Valsalva (2) Cognitive and neurobehavioral dysfunction following brain injury: Status: Acute Code(s): G31.89 - Other specified degenerative diseases of nervous system; F09 - Unspecified mental disorder due to known physiological condition; S06.9X9S - Unspecified intracranial injury with loss of consciousness of unspecified duration, sequela Assessment and Plan: Thegabapentin lamictal (3) HTN (hypertension): Status: Acute Code(s): I10 - Essential (primary) hypertension Assessment and Plan: Continue antihypertensives Plan Middle-aged male with a long history of mood symptoms with several admissions into the hospital for suicidal ideation. He also carries a diagnosis of TBI, historically he used to be highly functional but at this moment his wheelchair bounded and very angry at times. I spent minutes with the patient and/or on the patient floor today, greater than?50% of which was spent counseling/coordinating care. Reason for contiued inpatient stay Substantial Risk for: inability to function, rapid decompensation and med/psych decompensation
[2022-01-20] MEDS: Melatonin 3 MG TABLET 6 MG PO (20:37)
[2022-01-20] MEDS: traZODone HCL 100 MG TABLET 250 MG PO (20:39)
[2022-01-20] MEDS: Nortriptyline HCl 25 MG CAPSULE 100 MG PO (20:40)
[2022-01-21] MEDS: traZODone HCL 50 MG TABLET PO (01:18)
[2022-01-21] MEDS: QUEtiapine Fumarate 25 MG TABLET PO (04:08)
[2022-01-21 06:00] VITALS: BP 150/74; PULSE 74; RESP 14; TEMP 36.4; O2SAT 96
[2022-01-21] MEDS: Acetaminophen 325 MG TABLET 650 MG PO ×2 (06:24→21:36)
[2022-01-21] MEDS: lamoTRIgine 100 MG TABLET 200 MG PO ×2 (09:32→21:16)
[2022-01-21] MEDS: Pramipexole Di-HCL 0.125 MG TABLET PO ×3 (09:32→21:17)
[2022-01-21] MEDS: Cholecalciferol (Vitamin D3) 10 MCG TABLET 20 MCG PO (09:32)
[2022-01-21] MEDS: Gabapentin 400 MG CAPSULE PO ×3 (09:33→21:13)
[2022-01-21] MEDS: Multivitamin TABLET 1 TAB PO (09:33)
[2022-01-21] MEDS: Finasteride 5 MG TABLET PO (09:33)
[2022-01-21] MEDS: Vilazodone HCL 20 MG TABLET PO (09:33)
[2022-01-21] MEDS: LORazepam 0.5 MG TABLET PO ×2 (10:43→21:17)
[2022-01-21 11:28] VITALS: BP 150/74; PULSE 74; O2SAT 96
[2022-01-21] MEDS: QUEtiapine Fumarate 50 MG TABLET PO ×2 (12:35→21:16)
[2022-01-21] MEDS: Ibuprofen 400 MG TABLET PO (17:16)
--- NOTE | 2022-01-21 19:19 | PC.NURSE ---
At approximately 1900 RN's were beginning shift report when we heard loud yelling in the tv area. We immediately responded to situation to find Patient yelling profanities at staff member due to not getting tv station he wanted. Patient was trying to kick and swing arms at staff. Patient was told his behavior was unacceptable and tv was turned off. It was recommended to patient to go to room and calm down. At this time patient in room.
[2022-01-21] MEDS: traZODone HCL 100 MG TABLET 250 MG PO (21:13)
[2022-01-21] MEDS: Melatonin 3 MG TABLET 6 MG PO (21:13)
[2022-01-21 21:15] VITALS: BP 148/78; PULSE 67; RESP 18; TEMP 36.4; O2SAT 97
[2022-01-21] MEDS: Nortriptyline HCl 25 MG CAPSULE 100 MG PO (21:15)
[2022-01-21] MEDS: Latanoprost 0.005 % Ophth Sol 2.5 ML DROPS 1 DROP EYE-BOTH (21:16)
[2022-01-21] MEDS: Nystatin Cream 15 GM TUBE 1 APPL TOPICAL (21:17)
[2022-01-21] MEDS: Hydrocortisone 1 % Cream 28.35 GM TUBE 1 APPL TOPICAL (21:17)
[2022-01-21 22:00] VITALS: BP 148/78; PULSE 67
--- NOTE | 2022-01-21 22:16 | HO.PSYCHPN ---
Subjective Subjective Date of Service: 01/21/22 Reason For Visit: depression Subjective Notes: Conditional Voluntary Healthcare Proxy: No Guardianship: No Interim History: pt has been somewhat depressed demoralized b/p ok Mental Status Exam Mental Status Exam Patient Appearance: Fatigued and Disheveled Patient Orientation: Person, Place, Time and Situation (Will) Level of Consciousness: Awake Patient Behavior: Appropriate and Anxious Mood Description: Depressed and Apprehensive Affect Description: Constricted, Labile and Apprehensive Patient Cognition Impaired: No Ability to Follow Directions: Good Speech Pattern: Clear Memory Description: Episodic Impaired Delusions: Not Present Thought Process: Rumination Depressive Symptoms: Increased Anxiety, Feelings of Worthlessness and Hopelessness Judgement: Fair Diagnostics Vital Signs (24Hr): Vital Signs - 24 hr 01/21/22 06:00 01/21/22 11:28 Temperature 97.6 F Pulse Rate 74 74 Respiratory Rate 14 Blood Pressure 150/74 H 150/74 H Pulse Oximetry 96 96 BMI result Body Mass Index 30.5 Labs Results: 01/19/22 09:00 01/19/22 09:00 Imaging Radiology Impressions: ITS Impressions Hip X-Ray 01/05/22 16:00 IMPRESSION: Healed old fracture right femoral neck. The femoral neck screws that had been present in 2010 has been removed. No acute finding. Medications Medications Current Medications Acetaminophen (Acetaminophen 325 Mg Tablet) 650 mg PO Q6H PRN PRN Reason: Pain (Scale Score 1-3) Last Admin: 01/21/22 21:36 Dose: 650 mg Documented by: Al Hydroxide/Mg Hydroxide (Magnesium Hydrox/Alum Hydrox 30 Ml Oral.Susp) 30 ml PO Q6H PRN PRN Reason: Heartburn/Nausea Last Admin: 12/16/21 14:54 Dose: 30 ml Documented by: Albuterol Sulfate (Albuterol Sulfate 90 Mcg 8 Gm Inhaler) 2 puff INHALE Q6H PRN PRN Reason: Shortness Of Breath Last Admin: 12/24/21 21:33 Dose: 2 puff Documented by: Amlodipine Besylate (Amlodipine Besylate 5 Mg Tablet) 5 mg PO DAILY [facility]; Protocol Artificial Tears (Artificial Tears 15 Ml Drops) 1 drop EYE-BOTH Q1H PRN PRN Reason: Dry Eye(S) Atenolol (Atenolol 25 Mg Tablet) 25 mg PO DAILY [facility]; Protocol Last Admin: 01/18/22 09:33 Dose: 25 mg Documented by: Docusate Sodium (Docusate Sodium 100 Mg Capsule) 100 mg PO BID PRN PRN Reason: Constipation Last Admin: 12/23/21 12:44 Dose: 100 mg Documented by: Finasteride (Finasteride 5 Mg Tablet) 5 mg PO DAILY [facility] Last Admin: 01/21/22 09:33 Dose: 5 mg Documented by: Gabapentin (Gabapentin 400 Mg Capsule) 400 mg PO TID [facility] Last Admin: 01/21/22 21:13 Dose: 400 mg Documented by: Hydrocortisone (Hydrocortisone 1 % Cream 28.35 Gm Tube) 1 appl TOPICAL BID [facility]; Protocol Last Admin: 01/21/22 21:17 Dose: 1 appl Documented by: Hydroxyzine HCl (Hydroxyzine Hcl 25 Mg Tablet) 25 mg PO BEDTIME PRN PRN Reason: Anxiety Last Admin: 12/18/21 03:17 Dose: 25 mg Documented by: Ibuprofen (Ibuprofen 400 Mg Tablet) 400 mg PO Q6H PRN PRN Reason: Pain, Moderate (Pain Scale 4-6 Last Admin: 01/21/22 17:16 Dose: 400 mg Documented by: Lamotrigine (Lamotrigine 100 Mg Tablet) 200 mg PO BID [facility] Last Admin: 01/21/22 21:16 Dose: 200 mg Documented by: Latanoprost (Latanoprost 0.005 % Ophth No 2.5 Ml Drops) 1 drop EYE-BOTH BEDTIME [facility] Last Admin: 01/21/22 21:16 Dose: 1 drop Documented by: Lidocaine (Lidocaine 4 % Patch Adh..Patch) 1 patch TRANSDERMA DAILY [facility]; Protocol Last Admin: 01/21/22 09:42 Dose: Not Given Documented by: Lisinopril (Lisinopril 20 Mg Tablet) 20 mg PO DAILY [facility]; Protocol Lorazepam (Lorazepam 0.5 Mg Tablet) 0.5 mg PO Q6H PRN PRN Reason: Anxiety Last Admin: 01/21/22 21:17 Dose: 0.5 mg Documented by: Magnesium Hydroxide (Milk Of Magnesia 30 Ml Oral.Susp) 30 ml PO Q72H PRN PRN Reason: Constipation Last Admin: 12/12/21 10:20 Dose: 30 ml Documented by: Magnesium Hydroxide (Milk Of Magnesia 30 Ml Oral.Susp) 30 ml PO DAILY PRN PRN Reason: Constipation Melatonin (Melatonin 3 Mg Tablet) 6 mg PO BEDTIME [facility] Last Admin: 01/21/22 21:13 Dose: 6 mg Documented by: Multivitamins/Vitamin C (Multivitamin Tablet) 1 tab PO DAILY [facility] Last Admin: 01/21/22 09:33 Dose: 1 tab Documented by: Nortriptyline HCl (Nortriptyline Hcl 25 Mg Capsule) 100 mg PO BEDTIME [facility] Last Admin: 01/21/22 21:15 Dose: 100 mg Documented by: Nystatin (Nystatin Cream 15 Gm Tube) 1 appl TOPICAL BID [facility]; Protocol Last Admin: 01/21/22 21:17 Dose: 1 appl Documented by: Ondansetron HCl (Ondansetron Odt 4 Mg Tab.Rapdis) 4 mg TRANSLINGU Q8H PRN PRN Reason: Nausea and Vomiting Last Admin: 01/19/22 01:23 Dose: 4 mg Documented by: Polyethylene Glycol (Polyethylene Glycol 3350 17 Gm Powd.Pack) 17 gm PO DAILY PRN PRN Reason: Constipation Last Admin: 12/22/21 21:39 Dose: 17 gm Documented by: Polyethylene Glycol (Polyethylene Glycol 3350 17 Gm Powd.Pack) 17 gm PO DAILY@1600 [facility] Last Admin: 01/21/22 17:17 Dose: Not Given Documented by: Pramipexole Dihydrochloride (Pramipexole Di-Hcl 0.125 Mg Tablet) 0.125 mg PO TID [facility] Last Admin: 01/21/22 21:17 Dose: 0.125 mg Documented by: Psyllium Hydrophilic Mucilloid (Psyllium Seed 3.4 Gm Powd.Pack) 3.4 gm PO DAILY [facility] Last Admin: 01/21/22 09:32 Dose: 3.4 gm Documented by: Quetiapine Fumarate (Quetiapine Fumarate 25 Mg Tablet) 25 mg PO BID PRN PRN Reason: Anxiety Last Admin: 01/21/22 04:08 Dose: 25 mg Documented by: Quetiapine Fumarate (Quetiapine Fumarate 50 Mg Tablet) 50 mg PO BEDTIME [facility] Last Admin: 01/21/22 21:16 Dose: 50 mg Documented by: Quetiapine Fumarate (Quetiapine Fumarate 50 Mg Tablet) 50 mg PO DAILY@1300 [facility] Last Admin: 01/21/22 12:35 Dose: 50 mg Documented by: Trazodone HCl (Trazodone Hcl 50 Mg Tablet) 50 mg PO BEDTIME PRN PRN Reason: Insomnia Last Admin: 01/21/22 01:18 Dose: 50 mg Documented by: Trazodone HCl (Trazodone Hcl 100 Mg Tablet) 250 mg PO BEDTIME [facility] Last Admin: 01/21/22 21:13 Dose: 250 mg Documented by: Vilazodone HCl (Vilazodone Hcl 20 Mg Tablet) 20 mg PO DAILY [facility] Last Admin: 01/21/22 09:33 Dose: 20 mg Documented by: Vitamin D (Cholecalciferol (Vitamin D3) 10 Mcg Tablet) 20 mcg PO DAILY [facility] Last Admin: 01/21/22 09:32 Dose: 20 mcg Documented by: Allergies Allergies Allergy/AdvReac Type Severity Reaction Status Date / Time fentanyl [FENTANYL] Allergy Intermediate unknown Verified 05/22/21 11:43 Assessment & Plan Assessment & Plan (1) Major depressive disorder, recurrent severe without psychotic features: Status: Acute Code(s): F33.2 - Major depressive disorder, recurrent severe without psychotic features (2) Cognitive and neurobehavioral dysfunction following brain injury: Status: Acute Code(s): G31.89 - Other specified degenerative diseases of nervous system; F09 - Unspecified mental disorder due to known physiological condition; S06.9X9S - Unspecified intracranial injury with loss of consciousness of unspecified duration, sequela (3) HTN (hypertension): Status: Acute Code(s): I10 - Essential (primary) hypertension Plan inc vilazadone 20 mg clk levels lower lamictal 150 bid may be contributing to balance f idifficulties to referral to rehab setting as stable very motivated I spent __30____ minutes with the patient and/or on the patient floor today, greater than?50% of which was spent counseling/coordinating care. Reason for contiued inpatient stay Substantial Risk for: inability to function and rapid decompensation
[2022-01-22] MEDS: LORazepam 0.5 MG TABLET PO ×2 (03:18→21:00)
[2022-01-22] MEDS: Acetaminophen 325 MG TABLET 650 MG PO (06:31)
[2022-01-22 08:00] VITALS: BP 137/83; PULSE 75; TEMP 36.2; O2SAT 95
[2022-01-22] MEDS: Pramipexole Di-HCL 0.125 MG TABLET PO ×3 (08:17→21:05)
[2022-01-22] MEDS: Cholecalciferol (Vitamin D3) 10 MCG TABLET 20 MCG PO (08:17)
[2022-01-22] MEDS: Gabapentin 400 MG CAPSULE PO ×3 (08:18→21:06)
[2022-01-22] MEDS: Vilazodone HCL 20 MG TABLET PO (08:18)
[2022-01-22] MEDS: Finasteride 5 MG TABLET PO (08:18)
[2022-01-22] MEDS: Multivitamin TABLET 1 TAB PO (08:19)
[2022-01-22] MEDS: lamoTRIgine 100 MG TABLET 200 MG PO ×2 (08:19→21:01)
[2022-01-22 11:47] VITALS: BP 148/78; PULSE 67
[2022-01-22] MEDS: QUEtiapine Fumarate 50 MG TABLET PO ×2 (12:57→21:04)
[2022-01-22] MEDS: Ibuprofen 400 MG TABLET PO (14:27)
[2022-01-22] MEDS: polyethylene glycoL 3350 17 GM POWD.PACK PO (14:28)
[2022-01-22] MEDS: Docusate Sodium 100 MG CAPSULE PO ×2 (16:42→21:06)
[2022-01-22] MEDS: Nortriptyline HCl 25 MG CAPSULE 100 MG PO (21:00)
[2022-01-22] MEDS: traZODone HCL 100 MG TABLET 250 MG PO (21:02)
[2022-01-22 21:05] VITALS: BP 152/64; PULSE 76; RESP 19; TEMP 36.4; O2SAT 95
[2022-01-22] MEDS: Melatonin 3 MG TABLET 6 MG PO (21:05)
[2022-01-22] MEDS: Latanoprost 0.005 % Ophth Sol 2.5 ML DROPS 1 DROP EYE-BOTH (21:11)
[2022-01-22] MEDS: Nystatin Cream 15 GM TUBE 1 APPL TOPICAL (21:16)
[2022-01-22] MEDS: Hydrocortisone 1 % Cream 28.35 GM TUBE 1 APPL TOPICAL (21:17)
--- NOTE | 2022-01-22 21:22 | P.PNPSI_ITS ---
Subjective Subjective Date of Service: 01/22/22 Reason For Visit: depression Subjective Notes: Conditional Voluntary Healthcare Proxy: No Guardianship: No Interim History: Patient has had periods of impulsivity he is depressed irritable intermittently hopeless helpless alternating with periods of higher motivation for rehab. He he has been active with physical therapy Side effects from medications: Yes Attending Groups: Intermittent Review of Systems Restarting antihypertensives Mental Status Exam Mental Status Exam Patient Appearance: Fatigued and Disheveled Patient Orientation: Person, Place, Time and Situation (Will) Level of Consciousness: Awake Patient Behavior: Appropriate and Anxious Mood Description: Depressed and Apprehensive Affect Description: Constricted, Labile and Apprehensive Patient Cognition Impaired: No Ability to Follow Directions: Good Speech Pattern: Clear Hallucinations: None Delusions: Not Present Thought Process: Rumination Depressive Symptoms: Increased Anxiety, Increased Irritability, Feelings of Worthlessness, Hopelessness and Unhappiness Judgement: Fair Judgement and Insight: Some intermittent irritability and verbal aggression Diagnostics Vital Signs (24Hr): Vital Signs - 24 hr 01/21/22 22:00 01/22/22 08:00 01/22/22 11:47 Temperature 97.1 F Pulse Rate 67 75 67 Respiratory Rate Blood Pressure 148/78 H 137/83 148/78 H Pulse Oximetry 95 01/22/22 21:05 Temperature 97.5 F Pulse Rate 76 Respiratory Rate 19 Blood Pressure 152/64 H Pulse Oximetry 95 BMI result Body Mass Index 30.5 Labs Results: 01/19/22 09:00 01/19/22 09:00 Imaging Radiology Impressions: ITS Impressions Hip X-Ray 01/05/22 16:00 IMPRESSION: Healed old fracture right femoral neck. The femoral neck screws that had been present in 2010 has been removed. No acute finding. Medications Medications Current Medications Acetaminophen (Acetaminophen 325 Mg Tablet) 650 mg PO Q6H PRN PRN Reason: Pain (Scale Score 1-3) Last Admin: 01/22/22 06:31 Dose: 650 mg Documented by: Al Hydroxide/Mg Hydroxide (Magnesium Hydrox/Alum Hydrox 30 Ml Oral.Susp) 30 ml PO Q6H PRN PRN Reason: Heartburn/Nausea Last Admin: 12/16/21 14:54 Dose: 30 ml Documented by: Albuterol Sulfate (Albuterol Sulfate 90 Mcg 8 Gm Inhaler) 2 puff INHALE Q6H PRN PRN Reason: Shortness Of Breath Last Admin: 12/24/21 21:33 Dose: 2 puff Documented by: Amlodipine Besylate (Amlodipine Besylate 5 Mg Tablet) 5 mg PO DAILY [facility]; [place] col Artificial Tears (Artificial Tears 15 Ml Drops) 1 drop EYE-BOTH Q1H PRN PRN Reason: Dry Eye(S) Last Admin: 01/22/22 21:10 Dose: 1 drop Documented by: Atenolol (Atenolol 25 Mg Tablet) 25 mg PO DAILY [facility]; Protocol Last Admin: 01/18/22 09:33 Dose: 25 mg Documented by: Docusate Sodium (Docusate Sodium 100 Mg Capsule) 100 mg PO BID PRN PRN Reason: Constipation Last Admin: 01/22/22 21:06 Dose: 100 mg Documented by: Finasteride (Finasteride 5 Mg Tablet) 5 mg PO DAILY [facility] Last Admin: 01/22/22 08:18 Dose: 5 mg Documented by: Gabapentin (Gabapentin 400 Mg Capsule) 400 mg PO TID [facility] Last Admin: 01/22/22 21:06 Dose: 400 mg Documented by: Hydrocortisone (Hydrocortisone 1 % Cream 28.35 Gm Tube) 1 appl TOPICAL BID [facility]; Protocol Last Admin: 01/22/22 21:17 Dose: 1 appl Documented by: Hydroxyzine HCl (Hydroxyzine Hcl 25 Mg Tablet) 25 mg PO BEDTIME PRN PRN Reason: Anxiety Last Admin: 12/18/21 03:17 Dose: 25 mg Documented by: Ibuprofen (Ibuprofen 400 Mg Tablet) 400 mg PO Q6H PRN PRN Reason: Pain, Moderate (Pain Scale 4-6 Last Admin: 01/22/22 14:27 Dose: 400 mg Documented by: Lamotrigine (Lamotrigine 100 Mg Tablet) 200 mg PO BID [facility] Last Admin: 01/22/22 21:01 Dose: 100 mg Documented by: Latanoprost (Latanoprost 0.005 % Ophth No 2.5 Ml Drops) 1 drop EYE-BOTH BEDTIME [facility] Last Admin: 01/22/22 21:11 Dose: 1 drop Documented by: Lidocaine (Lidocaine 4 % Patch Adh..Patch) 1 patch TRANSDERMA DAILY [facility]; Protocol Last Admin: 01/22/22 10:05 Dose: Not Given Documented by: Lisinopril (Lisinopril 20 Mg Tablet) 20 mg PO DAILY [facility]; Protocol Lorazepam (Lorazepam 0.5 Mg Tablet) 0.5 mg PO Q6H PRN PRN Reason: Anxiety Last Admin: 01/22/22 21:00 Dose: 0.5 mg Documented by: Magnesium Hydroxide (Milk Of Magnesia 30 Ml Oral.Susp) 30 ml PO Q72H PRN PRN Reason: Constipation Last Admin: 12/12/21 10:20 Dose: 30 ml Documented by: Magnesium Hydroxide (Milk Of Magnesia 30 Ml Oral.Susp) 30 ml PO DAILY PRN PRN Reason: Constipation Melatonin (Melatonin 3 Mg Tablet) 6 mg PO BEDTIME [facility] Last Admin: 01/22/22 21:05 Dose: 6 mg Documented by: Multivitamins/Vitamin C (Multivitamin Tablet) 1 tab PO DAILY [facility] Last Admin: 01/22/22 08:19 Dose: 1 tab Documented by: Nortriptyline HCl (Nortriptyline Hcl 25 Mg Capsule) 100 mg PO BEDTIME [facility] Last Admin: 01/22/22 21:00 Dose: 100 mg Documented by: Nystatin (Nystatin Cream 15 Gm Tube) 1 appl TOPICAL BID [facility]; Protocol Last Admin: 01/22/22 21:16 Dose: 1 appl Documented by: Ondansetron HCl (Ondansetron Odt 4 Mg Tab.Rapdis) 4 mg TRANSLINGU Q8H PRN PRN Reason: Nausea and Vomiting Last Admin: 01/19/22 01:23 Dose: 4 mg Documented by: Polyethylene Glycol (Polyethylene Glycol 3350 17 Gm Powd.Pack) 17 gm PO DAILY PRN PRN Reason: Constipation Last Admin: 12/22/21 21:39 Dose: 17 gm Documented by: Polyethylene Glycol (Polyethylene Glycol 3350 17 Gm Powd.Pack) 17 gm PO DAILY@1600 [facility] Last Admin: 01/22/22 14:28 Dose: 17 gm Documented by: Pramipexole Dihydrochloride (Pramipexole Di-Hcl 0.125 Mg Tablet) 0.125 mg PO TI D [facility] Last Admin: 01/22/22 21:05 Dose: 0.125 mg Documented by: Psyllium Hydrophilic Mucilloid (Psyllium Seed 3.4 Gm Powd.Pack) 3.4 gm PO DAILY [facility] Last Admin: 01/22/22 08:19 Dose: 3.4 gm Documented by: Quetiapine Fumarate (Quetiapine Fumarate 25 Mg Tablet) 25 mg PO BID PRN PRN Reason: Anxiety Last Admin: 01/21/22 04:08 Dose: 25 mg Documented by: Quetiapine Fumarate (Quetiapine Fumarate 50 Mg Tablet) 50 mg PO BEDTIME [facility] Last Admin: 01/22/22 21:04 Dose: 50 mg Documented by: Quetiapine Fumarate (Quetiapine Fumarate 50 Mg Tablet) 50 mg PO DAILY@1300 [facility] Last Admin: 01/22/22 12:57 Dose: 50 mg Documented by: Trazodone HCl (Trazodone Hcl 50 Mg Tablet) 50 mg PO BEDTIME PRN PRN Reason: Insomnia Last Admin: 01/21/22 01:18 Dose: 50 mg Documented by: Trazodone HCl (Trazodone Hcl 100 Mg Tablet) 250 mg PO BEDTIME [facility] Last Admin: 01/22/22 21:02 Dose: 250 mg Documented by: Vilazodone HCl (Vilazodone Hcl 20 Mg Tablet) 20 mg PO DAILY [facility] Last Admin: 01/22/22 08:18 Dose: 20 mg Documented by: Vitamin D (Cholecalciferol (Vitamin D3) 10 Mcg Tablet) 20 mcg PO DAILY [facility] Last Admin: 01/22/22 08:17 Dose: 20 mcg Documented by: Allergies Allergies Allergy/AdvReac Type Severity Reaction Status Date / Time fentanyl [FENTANYL] Allergy Intermediate unknown Verified 05/22/21 11:43 Assessment & Plan Assessment & Plan (1) Major depressive disorder, recurrent severe without psychotic features: Status: Acute Code(s): F33.2 - Major depressive disorder, recurrent severe without psychotic features (2) Cognitive and neurobehavioral dysfunction following brain injury: Status: Acute Code(s): G31.89 - Other specified degenerative diseases of nervous system; F09 - Unspecified mental disorder due to known physiological condition; S06.9X9S - Unspecified intracranial injury with loss of consciousness of unspecified duration, sequela (3) HTN (hypertension): Status: Acute Code(s): I10 - Essential (primary) hypertension Plan inc vilazadone 20 mg clk levels lower lamictal 150 bid may be contributing to balance f idifficulties to referral to rehab setting as stable very motivated Consider Depakote or Trileptal and discontinue gabapentin versus taper and discontinue Lamictal watch for any over activation with Viibryd I spent __30____ minutes with the patient and/or on the patient floor today, greater than?50% of which was spent counseling/coordinating care. Reason for contiued inpatient stay Substantial Risk for: harm to self and rapid decompensation
[2022-01-23] MEDS: Ibuprofen 400 MG TABLET PO ×2 (05:39→18:27)
[2022-01-23 06:00] VITALS: BP 145/70; PULSE 75; TEMP 36.2; O2SAT 94
[2022-01-23] MEDS: Pramipexole Di-HCL 0.125 MG TABLET PO ×3 (08:45→20:54)
[2022-01-23] MEDS: Gabapentin 400 MG CAPSULE PO ×3 (08:48→20:52)
[2022-01-23] MEDS: Multivitamin TABLET 1 TAB PO (08:48)
[2022-01-23] MEDS: Vilazodone HCL 20 MG TABLET PO (08:48)
[2022-01-23] MEDS: Cholecalciferol (Vitamin D3) 10 MCG TABLET 20 MCG PO (08:48)
[2022-01-23] MEDS: Finasteride 5 MG TABLET PO (08:48)
[2022-01-23] MEDS: lamoTRIgine 100 MG TABLET 200 MG PO ×2 (08:48→20:55)
[2022-01-23 10:00] VITALS: BP 140/72; PULSE 80
[2022-01-23 10:31] VITALS: BP 152/64; PULSE 76; O2SAT 95
[2022-01-23] MEDS: LORazepam 0.5 MG TABLET PO ×3 (11:51→21:04)
[2022-01-23] MEDS: QUEtiapine Fumarate 50 MG TABLET PO ×2 (16:06→20:50)
[2022-01-23] MEDS: polyethylene glycoL 3350 17 GM POWD.PACK PO (16:06)
--- NOTE | 2022-01-23 17:23 | HO.PSYCHPN ---
Subjective Subjective Date of Service: 01/23/22 Reason For Visit: depression Subjective Notes: Conditional Voluntary Interim History: Patient was more depressed anxious irritable overwhelmed severely depressed was feeling significantly worse and agitated hopeless despondent Mental Status Exam Mental Status Exam Patient Appearance: Fatigued and Disheveled Patient Orientation: Person, Place, Time and Situation (Will) Level of Consciousness: Awake Patient Behavior: Appropriate and Anxious Mood Description: Depressed and Apprehensive Affect Description: Constricted, Labile and Apprehensive Patient Cognition Impaired: No Ability to Follow Directions: Good Speech Pattern: Clear Hallucinations: None Delusions: Not Present Thought Process: Rumination Depressive Symptoms: Increased Anxiety, Increased Irritability, Feelings of Worthlessness, Hopelessness and Unhappiness Judgement: Fair Judgement and Insight: Some intermittent irritability and verbal aggression Diagnostics Vital Signs (24Hr): Vital Signs - 24 hr 01/22/22 21:05 01/23/22 10:31 Temperature 97.5 F Pulse Rate 76 76 Respiratory Rate 19 Blood Pressure 152/64 H 152/64 H Pulse Oximetry 95 95 BMI result Body Mass Index 30.5 Labs Results: 01/19/22 09:00 01/19/22 09:00 Imaging Radiology Impressions: ITS Impressions Hip X-Ray 01/05/22 16:00 IMPRESSION: Healed old fracture right femoral neck. The femoral neck screws that had been present in 2010 has been removed. No acute finding. Medications Medications Current Medications Acetaminophen (Acetaminophen 325 Mg Tablet) 650 mg PO Q6H PRN PRN Reason: Pain (Scale Score 1-3) Last Admin: 01/22/22 06:31 Dose: 650 mg Documented by: Al Hydroxide/Mg Hydroxide (Magnesium Hydrox/Alum Hydrox 30 Ml Oral.Susp) 30 ml PO Q6H PRN PRN Reason: Heartburn/Nausea Last Admin: 12/16/21 14:54 Dose: 30 ml Documented by: Albuterol Sulfate (Albuterol Sulfate 90 Mcg 8 Gm Inhaler) 2 puff INHALE Q6H PRN PRN Reason: Shortness Of Breath Last Admin: 12/24/21 21:33 Dose: 2 puff Documented by: Amlodipine Besylate (Amlodipine Besylate 10 Mg Tablet) 10 mg PO DAILY [facility]; Protocol Artificial Tears (Artificial Tears 15 Ml Drops) 1 drop EYE-BOTH Q1H PRN PRN Reason: Dry Eye(S) Atenolol (Atenolol 25 Mg Tablet) 25 mg PO DAILY [facility]CLUDES [facility]; Protocol Last Admin: 01/18/22 09:33 Dose: 25 mg Documented by: Docusate Sodium (Docusate Sodium 100 Mg Capsule) 100 mg PO BID PRN PRN Reason: Constipation Last Admin: 01/22/22 21:06 Dose: 100 mg Documented by: Finasteride (Finasteride 5 Mg Tablet) 5 mg PO DAILY [facility]CLUD[facility] Last Admin: 01/23/22 08:48 Dose: 5 mg Documented by: Gabapentin (Gabapentin 400 Mg Capsule) 400 mg PO TID COUNT [facility]CLUDES [facility] Last Admin: 01/23/22 16:06 Dose: 400 mg Documented by: Hydrocortisone (Hydrocortisone 1 % Cream 28.35 Gm Tube) 1 appl TOPICAL BID COUNT [facility]CLUDES [facility]; Protocol Last Admin: 01/23/22 08:52 Dose: Not Given Documented by: Hydroxyzine HCl (Hydroxyzine Hcl 25 Mg Tablet) 25 mg PO BEDTIME PRN PRN Reason: Anxiety Last Admin: 12/18/21 03:17 Dose: 25 mg Documented by: Ibuprofen (Ibuprofen 400 Mg Tablet) 400 mg PO Q6H PRN PRN Reason: Pain, Moderate (Pain Scale 4-6 Last Admin: 01/23/22 05:39 Dose: 400 mg Documented by: Lamotrigine (Lamotrigine 100 Mg Tablet) 200 mg PO BID COUNT [facility]CLUDES [facility] Last Admin: 01/23/22 08:48 Dose: 200 mg Documented by: Latanoprost (Latanoprost 0.005 % Ophth No 2.5 Ml Drops) 1 drop EYE-BOTH BEDTIME COUNT INCLUDES [facility] Last Admin: 01/22/22 21:11 Dose: 1 drop Documented by: Lidocaine (Lidocaine 4 % Patch Adh..Patch) 1 patch TRANSDERMA DAILY COUNT [facility]CLUDES [facility]; Protocol Last Admin: 01/23/22 08:52 Dose: Not Given Documented by: Lisinopril (Lisinopril 20 Mg Tablet) 20 mg PO DAILY COUNT [facility]CLUD[facility]; Protocol Lorazepam (Lorazepam 0.5 Mg Tablet) 0.5 mg PO Q4H PRN PRN Reason: Anxiety Magnesium Hydroxide (Milk Of Magnesia 30 Ml Oral.Susp) 30 ml PO Q72H PRN PRN Reason: Constipation Last Admin: 12/12/21 10:20 Dose: 30 ml Documented by: Magnesium Hydroxide (Milk Of Magnesia 30 Ml Oral.Susp) 30 ml PO DAILY PRN PRN Reason: Constipation Melatonin (Melatonin 3 Mg Tablet) 6 mg PO BEDTIME COUNT [facility]CLUDES [facility] Last Admin: 01/22/22 21:05 Dose: 6 mg Documented by: Multivitamins/Vitamin C (Multivitamin Tablet) 1 tab PO DAILY COUNT [facility]CLUDES [facility] Last Admin: 01/23/22 08:48 Dose: 1 tab Documented by: Nortriptyline HCl (Nortriptyline Hcl 25 Mg Capsule) 100 mg PO BEDTIME COUNT [facility]CLUDES [facility] Last Admin: 01/22/22 21:00 Dose: 100 mg Documented by: Nystatin (Nystatin Cream 15 Gm Tube) 1 appl TOPICAL BID COUNT [facility]CLUDES [facility]; Protocol Last Admin: 01/23/22 08:52 Dose: Not Given Documented by: Ondansetron HCl (Ondansetron Odt 4 Mg Tab.Rapdis) 4 mg TRANSLINGU Q8H PRN PRN Reason: Nausea and Vomiting Last Admin: 01/19/22 01:23 Dose: 4 mg Documented by: Polyethylene Glycol (Polyethylene Glycol 3350 17 Gm Powd.Pack) 17 gm PO DAILY PRN PRN Reason: Constipation Last Admin: 12/22/21 21:39 Dose: 17 gm Documented by: Polyethylene Glycol (Polyethylene Glycol 3350 17 Gm Powd.Pack) 17 gm PO DAILY@1600 [facility]CLUDES [facility] Last Admin: 01/23/22 16:06 Dose: 17 gm Documented by: Pramipexole Dihydrochloride (Pramipexole Di-Hcl 0.125 Mg Tablet) 0.125 mg PO TID COUNT [facility]CLUDES [facility] Last Admin: 01/23/22 16:06 Dose: 0.125 mg Documented by: Psyllium Hydrophilic Mucilloid (Psyllium Seed 3.4 Gm Powd.Pack) 3.4 gm PO DAILY COUNT INCLUDES [facility] Last Admin: 01/23/22 08:52 Dose: 3.4 gm Documented by: Quetiapine Fumarate (Quetiapine Fumarate 25 Mg Tablet) 25 mg PO BID PRN PRN Reason: Anxiety Last Admin: 01/21/22 04:08 Dose: 25 mg Documented by: Quetiapine Fumarate (Quetiapine Fumarate 50 Mg Tablet) 50 mg PO BEDTIME COUNT [facility]CLUDES [facility] Last Admin: 01/22/22 21:04 Dose: 50 mg Documented by: Quetiapine Fumarate (Quetiapine Fumarate 50 Mg Tablet) 50 mg PO DAILY@1300 COUNT [facility]CLUD[facility] Last Admin: 01/23/22 16:06 Dose: 50 mg Documented by: Quetiapine Fumarate (Quetiapine Fumarate 25 Mg Tablet) 25 mg PO DAILY COUNT [facility]CLUDES [facility] Trazodone HCl (Trazodone Hcl 50 Mg Tablet) 50 mg PO BEDTIME PRN PRN Reason: Insomnia Last Admin: 01/21/22 01:18 Dose: 50 mg Documented by: Trazodone HCl (Trazodone Hcl 100 Mg Tablet) 250 mg PO BEDTIME COUNT [facility]CLUDES [facility] Last Admin: 01/22/22 21:02 Dose: 250 mg Documented by: Vilazodone HCl (Vilazodone Hcl 20 Mg Tablet) 20 mg PO DAILY COUNT [facility]CLUDES [facility] Last Admin: 01/23/22 08:48 Dose: 20 mg Documented by: Vitamin D (Cholecalciferol (Vitamin D3) 10 Mcg Tablet) 20 mcg PO DAILY COUNT INCLUDES [facility] Last Admin: 01/23/22 08:48 Dose: 20 mcg Documented by: Allergies Allergies Allergy/AdvReac Type Severity Reaction Status Date / Time fentanyl [FENTANYL] Allergy Intermediate unknown Verified 05/22/21 11:43 Assessment & Plan Assessment & Plan (1) Major depressive disorder, recurrent severe without psychotic features: Status: Acute Code(s): F33.2 - Major depressive disorder, recurrent severe without psychotic features Assessment and Plan: Hold Viibryd seems to be causing adverse reaction monitor nortriptyline check level consider alternative treatments patient was seen by advocate today encourage additional hope (2) Cognitive and neurobehavioral dysfunction following brain injury: Status: Acute Code(s): G31.89 - Other specified degenerative diseases of nervous system; F09 - Unspecified mental disorder due to known physiological condition; S06.9X9S - Unspecified intracranial injury with loss of consciousness of unspecified duration, sequela (3) HTN (hypertension): Status: Acute Code(s): I10 - Essential (primary) hypertension Plan inc vilazadone 20 mg clk levels lower lamictal 150 bid may be contributing to balance f idifficulties to referral to rehab setting as stable very motivated Consider Depakote or Trileptal and discontinue gabapentin versus taper and discontinue Lamictal watch for any over activation with Viibryd I spent minutes with the patient and/or on the patient floor today, greater than?50% of which was spent counseling/coordinating care. Reason for contiued inpatient stay Substantial Risk for: harm to others and rapid decompensation
[2022-01-23] MEDS: QUEtiapine Fumarate 25 MG TABLET PO (17:29)
[2022-01-23 18:00] VITALS: BP 161/82; PULSE 74; RESP 16; TEMP 36.2; O2SAT 97
[2022-01-23] MEDS: traZODone HCL 100 MG TABLET 250 MG PO (20:50)
[2022-01-23] MEDS: Nortriptyline HCl 25 MG CAPSULE 100 MG PO (20:52)
[2022-01-23] MEDS: Melatonin 3 MG TABLET 6 MG PO ×2 (20:53→21:04)
[2022-01-23] MEDS: Acetaminophen 325 MG TABLET 650 MG PO (20:54)
[2022-01-23] MEDS: Latanoprost 0.005 % Ophth Sol 2.5 ML DROPS 1 DROP EYE-BOTH (21:06)
[2022-01-23] MEDS: Nystatin Cream 15 GM TUBE 1 APPL TOPICAL (21:07)
[2022-01-23] MEDS: Hydrocortisone 1 % Cream 28.35 GM TUBE 1 APPL TOPICAL (21:07)
[2022-01-24] MEDS: Ibuprofen 400 MG TABLET PO ×2 (02:06→20:48)
[2022-01-24] MEDS: LORazepam 0.5 MG TABLET PO ×3 (02:07→15:54)
[2022-01-24 06:00] VITALS: BP 157/76; PULSE 71; RESP 16; TEMP 36.3; O2SAT 97
[2022-01-24] MEDS: Acetaminophen 325 MG TABLET 650 MG PO (08:43)
[2022-01-24] MEDS: lamoTRIgine 100 MG TABLET 200 MG PO ×2 (08:43→20:44)
[2022-01-24] MEDS: Pramipexole Di-HCL 0.125 MG TABLET PO ×3 (08:43→20:44)
[2022-01-24] MEDS: Gabapentin 400 MG CAPSULE PO ×3 (08:43→20:44)
[2022-01-24] MEDS: Multivitamin TABLET 1 TAB PO (08:43)
[2022-01-24] MEDS: Cholecalciferol (Vitamin D3) 10 MCG TABLET 20 MCG PO (08:43)
[2022-01-24] MEDS: Vilazodone HCL 20 MG TABLET PO (08:43)
[2022-01-24] MEDS: Finasteride 5 MG TABLET PO (08:43)
[2022-01-24] MEDS: QUEtiapine Fumarate 25 MG TABLET PO ×2 (08:44→15:54)
[2022-01-24] MEDS: lisinopriL 20 MG TABLET PO (08:52)
[2022-01-24] MEDS: amLODIPine Besylate 5 MG TABLET PO (10:11)
[2022-01-24 10:39] VITALS: BP 157/76; PULSE 71; O2SAT 97
[2022-01-24] MEDS: QUEtiapine Fumarate 50 MG TABLET PO ×2 (15:20→20:44)
[2022-01-24] MEDS: polyethylene glycoL 3350 17 GM POWD.PACK PO (15:54)
[2022-01-24 18:00] VITALS: BP 111/59; PULSE 71; RESP 18; TEMP 36; O2SAT 95
[2022-01-24] MEDS: Docusate Sodium 100 MG CAPSULE PO (20:44)
[2022-01-24] MEDS: Nortriptyline HCl 25 MG CAPSULE 100 MG PO (20:44)
[2022-01-24] MEDS: traZODone HCL 100 MG TABLET 250 MG PO (20:45)
[2022-01-24] MEDS: Latanoprost 0.005 % Ophth Sol 2.5 ML DROPS 1 DROP EYE-BOTH (20:46)
[2022-01-24] MEDS: Hydrocortisone 1 % Cream 28.35 GM TUBE 1 APPL TOPICAL (20:46)
[2022-01-24] MEDS: Melatonin 3 MG TABLET 6 MG PO (20:47)
--- NOTE | 2022-01-25 01:19 | HO.PSYCHPN ---
Subjective Subjective Date of Service: 01/24/22 Reason For Visit: depression Subjective Notes: Conditional Voluntary Healthcare Proxy: Yes Guardianship: Yes Medical Problems Affecting Mental Status: Yes Interim History: Patient somewhat hopeless helpless despondent was visited by on been submitted today Mental Status Exam Mental Status Exam Patient Appearance: Fatigued and Disheveled Patient Orientation: Person, Place, Time and Situation (Will) Level of Consciousness: Awake Patient Behavior: Appropriate and Anxious Mood Description: Depressed and Apprehensive Affect Description: Constricted, Labile and Apprehensive Patient Cognition Impaired: No Ability to Follow Directions: Good Speech Pattern: Clear Hallucinations: None Delusions: Not Present Thought Process: Rumination Depressive Symptoms: Increased Anxiety, Increased Irritability, Feelings of Worthlessness, Hopelessness and Unhappiness Judgement: Fair Judgement and Insight: Some intermittent irritability and verbal aggression Diagnostics Vital Signs (24Hr): Vital Signs - 24 hr 01/24/22 06:00 01/24/22 10:39 01/24/22 18:00 Temperature 97.3 F 96.8 F Pulse Rate 71 71 71 Respiratory Rate 16 18 Blood Pressure 157/76 H 157/76 H 111/59 L Pulse Oximetry 97 97 95 BMI result Body Mass Index 30.5 Labs Results: 01/19/22 09:00 01/19/22 09:00 Imaging Radiology Impressions: ITS Impressions Hip X-Ray 01/05/22 16:00 IMPRESSION: Healed old fracture right femoral neck. The femoral neck screws that had been present in 2010 has been removed. No acute finding. Medications Medications Current Medications Acetaminophen (Acetaminophen 325 Mg Tablet) 650 mg PO Q6H PRN PRN Reason: Pain (Scale Score 1-3) Last Admin: 01/24/22 08:43 Dose: 650 mg Documented by: Al Hydroxide/Mg Hydroxide (Magnesium Hydrox/Alum Hydrox 30 Ml Oral.Susp) 30 ml PO Q6H PRN PRN Reason: Heartburn/Nausea Last Admin: 12/16/21 14:54 Dose: 30 ml Documented by: Albuterol Sulfate (Albuterol Sulfate 90 Mcg 8 Gm Inhaler) 2 puff INHALE Q6H PRN PRN Reason: Shortness Of Breath Last Admin: 12/24/21 21:33 Dose: 2 puff Documented by: Amlodipine Besylate (Amlodipine Besylate 5 Mg Tablet) 5 mg PO DAILY [facility]; Protocol Last Admin: 01/24/22 10:11 Dose: 5 mg Documented by: Artificial Tears (Artificial Tears 15 Ml Drops) 1 drop EYE-BOTH Q1H PRN PRN Reason: Dry Eye(S) Atenolol (Atenolol 25 Mg Tablet) 25 mg PO DAILY [facility]; Protocol Last Admin: 01/18/22 09:33 Dose: 25 mg Documented by: Docusate Sodium (Docusate Sodium 100 Mg Capsule) 100 mg PO BID PRN PRN Reason: Constipation Last Admin: 01/24/22 20:44 Dose: 100 mg Documented by: Finasteride (Finasteride 5 Mg Tablet) 5 mg PO DAILY [facility] Last Admin: 01/24/22 08:43 Dose: 5 mg Documented by: Gabapentin (Gabapentin 400 Mg Capsule) 400 mg PO TID [facility] Last Admin: 01/24/22 20:44 Dose: 400 mg Documented by: Hydrocortisone (Hydrocortisone 1 % Cream 28.35 Gm Tube) 1 appl TOPICAL BID [facility]; Protocol Last Admin: 01/24/22 20:46 Dose: 1 appl Documented by: Hydroxyzine HCl (Hydroxyzine Hcl 25 Mg Tablet) 25 mg PO BEDTIME PRN PRN Reason: Anxiety Last Admin: 12/18/21 03:17 Dose: 25 mg Documented by: Ibuprofen (Ibuprofen 400 Mg Tablet) 400 mg PO Q6H PRN PRN Reason: Pain, Moderate (Pain Scale 4-6 Last Admin: 01/24/22 20:48 Dose: 400 mg Documented by: Lamotrigine (Lamotrigine 100 Mg Tablet) 200 mg PO BID [facility] Last Admin: 01/24/22 20:44 Dose: 200 mg Documented by: Latanoprost (Latanoprost 0.005 % Ophth No 2.5 Ml Drops) 1 drop EYE-BOTH BEDTIME [facility] Last Admin: 01/24/22 20:46 Dose: 1 drop Documented by: Lidocaine (Lidocaine 4 % Patch Adh..Patch) 1 patch TRANSDERMA DAILY [facility]; Protocol Last Admin: 01/24/22 09:19 Dose: Not Given Documented by: Lisinopril (Lisinopril 20 Mg Tablet) 20 mg PO DAILY [facility]; Protocol Last Admin: 01/24/22 08:52 Dose: 20 mg Documented by: Lorazepam (Lorazepam 0.5 Mg Tablet) 0.5 mg PO Q4H PRN PRN Reason: Anxiety Last Admin: 01/24/22 15:54 Dose: 0.5 mg Documented by: Magnesium Hydroxide (Milk Of Magnesia 30 Ml Oral.Susp) 30 ml PO Q72H PRN PRN Reason: Constipation Last Admin: 12/12/21 10:20 Dose: 30 ml Documented by: Magnesium Hydroxide (Milk Of Magnesia 30 Ml Oral.Susp) 30 ml PO DAILY PRN PRN Reason: Constipation Melatonin (Melatonin 3 Mg Tablet) 6 mg PO BEDTIME [facility] Last Admin: 01/24/22 20:47 Dose: 6 mg Documented by: Multivitamins/Vitamin C (Multivitamin Tablet) 1 tab PO DAILY [facility] Last Admin: 01/24/22 08:43 Dose: 1 tab Documented by: Nortriptyline HCl (Nortriptyline Hcl 25 Mg Capsule) 100 mg PO BEDTIME [facility] Last Admin: 01/24/22 20:44 Dose: 100 mg Documented by: Nystatin (Nystatin Cream 15 Gm Tube) 1 appl TOPICAL BID [facility]; Protocol Last Admin: 01/24/22 20:53 Dose: Not Given Documented by: Ondansetron HCl (Ondansetron Odt 4 Mg Tab.Rapdis) 4 mg TRANSLINGU Q8H PRN PRN Reason: Nausea and Vomiting Last Admin: 01/19/22 01:23 Dose: 4 mg Documented by: Polyethylene Glycol (Polyethylene Glycol 3350 17 Gm Powd.Pack) 17 gm PO DAILY PRN PRN Reason: Constipation Last Admin: 12/22/21 21:39 Dose: 17 gm Documented by: Polyethylene Glycol (Polyethylene Glycol 3350 17 Gm Powd.Pack) 17 gm PO DAILY@1600 [facility] Last Admin: 01/24/22 15:54 Dose: 17 gm Documented by: Pramipexole Dihydrochloride (Pramipexole Di-Hcl 0.125 Mg Tablet) 0.125 mg PO TID [facility] Last Admin: 01/24/22 20:44 Dose: 0.125 mg Documented by: Psyllium Hydrophilic Mucilloid (Psyllium Seed 3.4 Gm Powd.Pack) 3.4 gm PO DAILY [facility] Last Admin: 01/24/22 08:44 Dose: 3.4 gm Documented by: Quetiapine Fumarate (Quetiapine Fumarate 25 Mg Tablet) 25 mg PO BID PRN PRN Reason: Anxiety Last Admin: 01/24/22 15:54 Dose: 25 mg Documented by: Quetiapine Fumarate (Quetiapine Fumarate 50 Mg Tablet) 50 mg PO BEDTIME [facility] Last Admin: 01/24/22 20:44 Dose: 50 mg Documented by: Quetiapine Fumarate (Quetiapine Fumarate 50 Mg Tablet) 50 mg PO DAILY@1300 [facility] Last Admin: 01/24/22 15:20 Dose: 50 mg Documented by: Quetiapine Fumarate (Quetiapine Fumarate 25 Mg Tablet) 25 mg PO DAILY [facility] Last Admin: 01/24/22 08:44 Dose: 25 mg Documented by: Trazodone HCl (Trazodone Hcl 50 Mg Tablet) 50 mg PO BEDTIME PRN PRN Reason: Insomnia Last Admin: 01/21/22 01:18 Dose: 50 mg Documented by: Trazodone HCl (Trazodone Hcl 100 Mg Tablet) 250 mg PO BEDTIME [facility] Last Admin: 01/24/22 20:45 Dose: 250 mg Documented by: Vilazodone HCl (Vilazodone Hcl 20 Mg Tablet) 20 mg PO DAILY [facility] Last Admin: 01/24/22 08:43 Dose: 20 mg Documented by: Vitamin D (Cholecalciferol (Vitamin D3) 10 Mcg Tablet) 20 mcg PO DAILY [facility] Last Admin: 01/24/22 08:43 Dose: 20 mcg Documented by: Allergies Allergies Allergy/AdvReac Type Severity Reaction Status Date / Time fentanyl [FENTANYL] Allergy Intermediate unknown Verified 05/22/21 11:43 Assessment & Plan Assessment & Plan (1) Major depressive disorder, recurrent severe without psychotic features: Status: Acute Code(s): F33.2 - Major depressive disorder, recurrent severe without psychotic features Assessment and Plan: Hold Viibryd seems to be causing adverse reaction monitor nortriptyline check level consider alternative treatments patient was seen by advocate today encourage additional hope cont seroquel for anxiety theresa sx (2) Cognitive and neurobehavioral dysfunction following brain injury: Status: Acute Code(s): G31.89 - Other specified degenerative diseases of nervous system; F09 - Unspecified mental disorder due to known physiological condition; S06.9X9S - Unspecified intracranial injury with loss of consciousness of unspecified duration, sequela (3) HTN (hypertension): Status: Acute Code(s): I10 - Essential (primary) hypertension Plan inc vilazadone 20 mg clk levels lower lamictal 150 bid may be contributing to balance f idifficulties to referral to rehab setting as stable very motivated Consider Depakote or Trileptal and discontinue gabapentin versus taper and discontinue Lamictal watch for any over activation with Viizachd I spent minutes with the patient and/or on the patient floor today, greater than?50% of which was spent counseling/coordinating care. Reason for contiued inpatient stay Substantial Risk for: harm to self and rapid decompensation
[2022-01-25] MEDS: LORazepam 0.5 MG TABLET PO ×2 (03:37→14:14)
[2022-01-25 06:00] VITALS: BP 134/67; PULSE 84; RESP 14; TEMP 36.3; O2SAT 96
[2022-01-25] MEDS: Cholecalciferol (Vitamin D3) 10 MCG TABLET 20 MCG PO (08:56)
[2022-01-25] MEDS: Finasteride 5 MG TABLET PO (08:56)
[2022-01-25] MEDS: Gabapentin 400 MG CAPSULE PO ×3 (08:56→21:02)
[2022-01-25] MEDS: amLODIPine Besylate 5 MG TABLET PO (08:56)
[2022-01-25] MEDS: Pramipexole Di-HCL 0.125 MG TABLET PO ×3 (08:57→21:02)
[2022-01-25] MEDS: Multivitamin TABLET 1 TAB PO (08:57)
[2022-01-25] MEDS: QUEtiapine Fumarate 25 MG TABLET PO (08:57)
[2022-01-25] MEDS: lamoTRIgine 100 MG TABLET 200 MG PO ×2 (08:57→21:02)
[2022-01-25] MEDS: lisinopriL 20 MG TABLET PO (08:57)
[2022-01-25] MEDS: Vilazodone HCL 20 MG TABLET PO (08:57)
[2022-01-25] MEDS: QUEtiapine Fumarate 50 MG TABLET PO ×2 (14:14→21:02)
[2022-01-25] MEDS: Docusate Sodium 100 MG CAPSULE PO ×2 (14:14→21:04)
--- NOTE | 2022-01-25 14:41 | HO.PSYCHPN ---
Subjective Subjective Date of Service: 01/25/22 Reason For Visit: depression Interim History: Review chart, discussed case with nursing Patient lying on bed reading Eduarda Diaz. He says he is depressed but denies SI, saying not today...but a few days ago it seemed a viable option. He says that Dr. Haskins has been treating him well and has recently made a medication change that he still getting used to. Patient otherwise denies any complaints or requests. Mental Status Exam Mental Status Exam Narrative: Patient Appearance:?adequately groomed; wearing casual clothing, glasses. Patient Orientation:?Person, Place, Time and Situation (Will) Level of Consciousness:?Awake Patient Behavior:?Appropriate and Anxious Mood Description:?Depressed Affect Description:?Constricted Patient Cognition Impaired:?No Ability to Follow Directions:?Good Speech Pattern:?Clear Hallucinations:?None Delusions:?Not Present Thought Process:?Rumination Thought Content: currently denies SI/HI Depressive Symptoms:?Increased Anxiety, Increased Irritability, Feelings of Worthlessness, Hopelessness and Unhappiness Judgement and Insight: fair Some intermittent irritability and verbal aggression Diagnostics Vital Signs (24Hr): Vital Signs - 24 hr 01/24/22 18:00 01/25/22 06:00 Temperature 96.8 F 97.4 F Pulse Rate 71 84 Respiratory Rate 18 14 Blood Pressure 111/59 L 134/67 Pulse Oximetry 95 96 BMI result Body Mass Index 30.5 Labs Results: 01/19/22 09:00 01/19/22 09:00 Imaging Radiology Impressions: ITS Impressions Hip X-Ray 01/05/22 16:00 IMPRESSION: Healed old fracture right femoral neck. The femoral neck screws that had been present in 2010 has been removed. No acute finding. Medications Medications Current Medications Acetaminophen (Acetaminophen 325 Mg Tablet) 650 mg PO Q6H PRN PRN Reason: Pain (Scale Score 1-3) Last Admin: 01/24/22 08:43 Dose: 650 mg Documented by: Al Hydroxide/Mg Hydroxide (Magnesium Hydrox/Alum Hydrox 30 Ml Oral.Susp) 30 ml PO Q6H PRN PRN Reason: Heartburn/Nausea Last Admin: 12/16/21 14:54 Dose: 30 ml Documented by: Albuterol Sulfate (Albuterol Sulfate 90 Mcg 8 Gm Inhaler) 2 puff INHALE Q6H PRN PRN Reason: Shortness Of Breath Last Admin: 12/24/21 21:33 Dose: 2 puff Documented by: Amlodipine Besylate (Amlodipine Besylate 5 Mg Tablet) 5 mg PO DAILY [facility]; Protocol Last Admin: 01/25/22 08:56 Dose: 5 mg Documented by: Artificial Tears (Artificial Tears 15 Ml Drops) 1 drop EYE-BOTH Q1H PRN PRN Reason: Dry Eye(S) Atenolol (Atenolol 25 Mg Tablet) 25 mg PO DAILY [facility]; Protocol Last Admin: 01/18/22 09:33 Dose: 25 mg Documented by: Docusate Sodium (Docusate Sodium 100 Mg Capsule) 100 mg PO BID PRN PRN Reason: Constipation Last Admin: 01/25/22 14:14 Dose: 100 mg Documented by: Finasteride (Finasteride 5 Mg Tablet) 5 mg PO DAILY [facility] Last Admin: 01/25/22 08:56 Dose: 5 mg Documented by: Gabapentin (Gabapentin 400 Mg Capsule) 400 mg PO TID [facility] Last Admin: 01/25/22 14:14 Dose: 400 mg Documented by: Hydrocortisone (Hydrocortisone 1 % Cream 28.35 Gm Tube) 1 appl TOPICAL BID [facility]; Protocol Last Admin: 01/25/22 08:57 Dose: Not Given Documented by: Hydroxyzine HCl (Hydroxyzine Hcl 25 Mg Tablet) 25 mg PO BEDTIME PRN PRN Reason: Anxiety Last Admin: 12/18/21 03:17 Dose: 25 mg Documented by: Ibuprofen (Ibuprofen 400 Mg Tablet) 400 mg PO Q6H PRN PRN Reason: Pain, Moderate (Pain Scale 4-6 Last Admin: 01/24/22 20:48 Dose: 400 mg Documented by: Lamotrigine (Lamotrigine 100 Mg Tablet) 200 mg PO BID [facility] Last Admin: 01/25/22 08:57 Dose: 200 mg Documented by: Latanoprost (Latanoprost 0.005 % Ophth No 2.5 Ml Drops) 1 drop EYE-BOTH BEDTIME [facility] Last Admin: 01/24/22 20:46 Dose: 1 drop Documented by: Lidocaine (Lidocaine 4 % Patch Adh..Patch) 1 patch TRANSDERMA DAILY [facility]; Protocol Last Admin: 01/25/22 08:57 Dose: Not Given Documented by: Lisinopril (Lisinopril 20 Mg Tablet) 20 mg PO DAILY [facility]; Protocol Last Admin: 01/25/22 08:57 Dose: 20 mg Documented by: Lorazepam (Lorazepam 0.5 Mg Tablet) 0.5 mg PO Q4H PRN PRN Reason: Anxiety Last Admin: 01/25/22 14:14 Dose: 0.5 mg Documented by: Magnesium Hydroxide (Milk Of Magnesia 30 Ml Oral.Susp) 30 ml PO Q72H PRN PRN Reason: Constipation Last Admin: 12/12/21 10:20 Dose: 30 ml Documented by: Magnesium Hydroxide (Milk Of Magnesia 30 Ml Oral.Susp) 30 ml PO DAILY PRN PRN Reason: Constipation Melatonin (Melatonin 3 Mg Tablet) 6 mg PO BEDTIME TAZ Last Admin: 01/24/22 20:47 Dose: 6 mg Documented by: Multivitamins/Vitamin C (Multivitamin Tablet) 1 tab PO DAILY [facility] Last Admin: 01/25/22 08:57 Dose: 1 tab Documented by: Nortriptyline HCl (Nortriptyline Hcl 25 Mg Capsule) 100 mg PO BEDTIME [facility] Last Admin: 01/24/22 20:44 Dose: 100 mg Documented by: Nystatin (Nystatin Cream 15 Gm Tube) 1 appl TOPICAL BID [facility]; Protocol Last Admin: 01/25/22 09:56 Dose: Not Given Documented by: Ondansetron HCl (Ondansetron Odt 4 Mg Tab.Rapdis) 4 mg TRANSLINGU Q8H PRN PRN Reason: Nausea and Vomiting Last Admin: 01/19/22 01:23 Dose: 4 mg Documented by: Polyethylene Glycol (Polyethylene Glycol 3350 17 Gm Powd.Pack) 17 gm PO DAILY PRN PRN Reason: Constipation Last Admin: 12/22/21 21:39 Dose: 17 gm Documented by: Polyethylene Glycol (Polyethylene Glycol 3350 17 Gm Powd.Pack) 17 gm PO DAILY@1600 [facility] Last Admin: 01/24/22 15:54 Dose: 17 gm Documented by: Pramipexole Dihydrochloride (Pramipexole Di-Hcl 0.125 Mg Tablet) 0.125 mg PO TID [facility] Last Admin: 01/25/22 14:14 Dose: 0.125 mg Documented by: Psyllium Hydrophilic Mucilloid (Psyllium Seed 3.4 Gm Powd.Pack) 3.4 gm PO DAILY [facility] Last Admin: 01/25/22 08:56 Dose: 3.4 gm Documented by: Quetiapine Fumarate (Quetiapine Fumarate 25 Mg Tablet) 25 mg PO BID PRN PRN Reason: Anxiety Last Admin: 01/24/22 15:54 Dose: 25 mg Documented by: Quetiapine Fumarate (Quetiapine Fumarate 50 Mg Tablet) 50 mg PO BEDTIME [facility] Last Admin: 01/24/22 20:44 Dose: 50 mg Documented by: Quetiapine Fumarate (Quetiapine Fumarate 50 Mg Tablet) 50 mg PO DAILY@1300 [facility] Last Admin: 01/25/22 14:14 Dose: 50 mg Documented by: Quetiapine Fumarate (Quetiapine Fumarate 25 Mg Tablet) 25 mg PO DAILY [facility] Last Admin: 01/25/22 08:57 Dose: 25 mg Documented by: Trazodone HCl (Trazodone Hcl 50 Mg Tablet) 50 mg PO BEDTIME PRN PRN Reason: Insomnia Last Admin: 01/21/22 01:18 Dose: 50 mg Documented by: Trazodone HCl (Trazodone Hcl 100 Mg Tablet) 250 mg PO BEDTIME [facility] Last Admin: 01/24/22 20:45 Dose: 250 mg Documented by: Vilazodone HCl (Vilazodone Hcl 20 Mg Tablet) 20 mg PO DAILY [facility] Last Admin: 01/25/22 08:57 Dose: 20 mg Documented by: Vitamin D (Cholecalciferol (Vitamin D3) 10 Mcg Tablet) 20 mcg PO DAILY [facility] Last Admin: 01/25/22 08:56 Dose: 20 mcg Documented by: Allergies Allergies Allergy/AdvReac Type Severity Reaction Status Date / Time fentanyl [FENTANYL] Allergy Intermediate unknown Verified 05/22/21 11:43 Assessment & Plan Assessment & Plan (1) Major depressive disorder, recurrent severe without psychotic features: Status: Acute Code(s): F33.2 - Major depressive disorder, recurrent severe without psychotic features Assessment and Plan: Hold Viibryd seems to be causing adverse reaction monitor nortriptyline check level consider alternative treatments patient was seen by advocate today encourage additional hope cont seroquel for anxiety theresa sx (2) Cognitive and neurobehavioral dysfunction following brain injury: Status: Acute Code(s): G31.89 - Other specified degenerative diseases of nervous system; F09 - Unspecified mental disorder due to known physiological condition; S06.9X9S - Unspecified intracranial injury with loss of consciousness of unspecified duration, sequela (3) HTN (hypertension): Status: Acute Code(s): I10 - Essential (primary) hypertension Plan inc vilazadone 20 mg clk levels lower lamictal 150 bid may be contributing to balance f idifficulties to referral to rehab setting as stable very motivated Consider Depakote or Trileptal and discontinue gabapentin versus taper and discontinue Lamictal watch for any over activation with Viibryd covering 01/25 continue with current treatment regimen I spent minutes with the patient and/or on the patient floor today, greater than?50% of which was spent counseling/coordinating care. Reason for contiued inpatient stay Substantial Risk for: med/psych decompensation
[2022-01-25 18:00] VITALS: BP 112/58; PULSE 73; RESP 18; TEMP 36.2; O2SAT 96
[2022-01-25] MEDS: Melatonin 3 MG TABLET 6 MG PO (21:01)
[2022-01-25] MEDS: traZODone HCL 100 MG TABLET 250 MG PO (21:02)
[2022-01-25] MEDS: Nortriptyline HCl 25 MG CAPSULE 100 MG PO (21:02)
[2022-01-25] MEDS: Hydrocortisone 1 % Cream 28.35 GM TUBE 1 APPL TOPICAL (21:03)
[2022-01-25] MEDS: Latanoprost 0.005 % Ophth Sol 2.5 ML DROPS 1 DROP EYE-BOTH (21:03)
[2022-01-25] MEDS: Ibuprofen 400 MG TABLET PO (21:04)
[2022-01-26 08:03] VITALS: BP 154/81; PULSE 77; RESP 18; TEMP 36.7; O2SAT 97
[2022-01-26] MEDS: Cholecalciferol (Vitamin D3) 10 MCG TABLET 20 MCG PO (09:24)
[2022-01-26] MEDS: Vilazodone HCL 20 MG TABLET PO (09:24)
[2022-01-26] MEDS: Pramipexole Di-HCL 0.125 MG TABLET PO ×3 (09:25→20:53)
[2022-01-26] MEDS: Finasteride 5 MG TABLET PO (09:25)
[2022-01-26] MEDS: QUEtiapine Fumarate 25 MG TABLET PO (09:25)
[2022-01-26] MEDS: amLODIPine Besylate 5 MG TABLET PO (09:25)
[2022-01-26] MEDS: lisinopriL 20 MG TABLET PO (09:25)
[2022-01-26] MEDS: Multivitamin TABLET 1 TAB PO (09:25)
[2022-01-26] MEDS: Gabapentin 400 MG CAPSULE PO ×3 (09:25→20:52)
[2022-01-26] MEDS: lamoTRIgine 100 MG TABLET 200 MG PO ×2 (09:26→20:51)
[2022-01-26] MEDS: Docusate Sodium 100 MG CAPSULE PO ×2 (09:31→21:16)
[2022-01-26] MEDS: Ibuprofen 400 MG TABLET PO ×2 (09:34→20:52)
[2022-01-26] MEDS: QUEtiapine Fumarate 50 MG TABLET PO ×2 (13:06→20:53)
[2022-01-26] MEDS: Acetaminophen 325 MG TABLET 650 MG PO (15:32)
[2022-01-26] MEDS: polyethylene glycoL 3350 17 GM POWD.PACK PO (15:35)
[2022-01-26] MEDS: Melatonin 3 MG TABLET 6 MG PO (20:51)
[2022-01-26] MEDS: traZODone HCL 100 MG TABLET 250 MG PO (20:52)
[2022-01-26] MEDS: Nortriptyline HCl 25 MG CAPSULE 100 MG PO (20:53)
[2022-01-26] MEDS: Hydrocortisone 1 % Cream 28.35 GM TUBE 1 APPL TOPICAL (20:55)
[2022-01-26] MEDS: Latanoprost 0.005 % Ophth Sol 2.5 ML DROPS 1 DROP EYE-BOTH (20:58)
[2022-01-26] MEDS: LORazepam 0.5 MG TABLET PO (21:16)
[2022-01-26 21:17] VITALS: BP 125/63; PULSE 84; RESP 18; TEMP 36.9; O2SAT 99
[2022-01-26] MEDS: hydrOXYzine HCL 25 MG TABLET PO (21:20)
--- NOTE | 2022-01-26 23:21 | P.PNPSI_ITS ---
Subjective Subjective Date of Service: 01/26/22 Reason For Visit: depression Interim History: Patient sitting in day room watching television. He reports that he is the same as yesterday without any changes. Patient denies complaints or requests. Mental Status Exam Mental Status Exam Narrative: Patient Appearance:?adequately groomed; wearing casual clothing, glasses. Patient Orientation:?Person, Place, Time and Situation (Will) Level of Consciousness:?Awake Patient Behavior:?Appropriate and Anxious Mood Description:?Depressed Affect Description:?Constricted Patient Cognition Impaired:?No Ability to Follow Directions:?Good Speech Pattern:?Clear Hallucinations:?None Delusions:?Not Present Thought Process:?Rumination Thought Content: currently denies SI/HI Depressive Symptoms:?Increased Anxiety, Increased Irritability, Feelings of Worthlessness, Hopelessness and Unhappiness Judgement and Insight: fair Some intermittent irritability and verbal aggression Diagnostics Vital Signs (24Hr): Vital Signs - 24 hr 01/26/22 08:03 01/26/22 21:17 Temperature 98.0 F 98.4 F Pulse Rate 77 84 Respiratory Rate 18 18 Blood Pressure 154/81 H 125/63 Pulse Oximetry 97 99 BMI result Body Mass Index 30.5 Labs Results: 01/19/22 09:00 01/19/22 09:00 Imaging Radiology Impressions: ITS Impressions Hip X-Ray 01/05/22 16:00 IMPRESSION: Healed old fracture right femoral neck. The femoral neck screws that had been present in 2010 has been removed. No acute finding. Medications Medications Current Medications Acetaminophen (Acetaminophen 325 Mg Tablet) 650 mg PO Q6H PRN PRN Reason: Pain (Scale Score 1-3) Last Admin: 01/26/22 15:32 Dose: 650 mg Documented by: Al Hydroxide/Mg Hydroxide (Magnesium Hydrox/Alum Hydrox 30 Ml Oral.Susp) 30 ml PO Q6H PRN PRN Reason: Heartburn/Nausea Last Admin: 12/16/21 14:54 Dose: 30 ml Documented by: Albuterol Sulfate (Albuterol Sulfate 90 Mcg 8 Gm Inhaler) 2 puff INHALE Q6H PRN PRN Reason: Shortness Of Breath Last Admin: 12/24/21 21:33 Dose: 2 puff Documented by: Amlodipine Besylate (Amlodipine Besylate 5 Mg Tablet) 5 mg PO DAILY [facility]; Protocol Last Admin: 01/26/22 09:25 Dose: 5 mg Documented by: Artificial Tears (Artificial Tears 15 Ml Drops) 1 drop EYE-BOTH Q1H PRN PRN Reason: Dry Eye(S) Atenolol (Atenolol 25 Mg Tablet) 25 mg PO DAILY [facility]; Protocol Last Admin: 01/18/22 09:33 Dose: 25 mg Documented by: Docusate Sodium (Docusate Sodium 100 Mg Capsule) 100 mg PO BID PRN PRN Reason: Constipation Last Admin: 01/26/22 21:16 Dose: 100 mg Documented by: Finasteride (Finasteride 5 Mg Tablet) 5 mg PO DAILY [facility] Last Admin: 01/26/22 09:25 Dose: 5 mg Documented by: Gabapentin (Gabapentin 400 Mg Capsule) 400 mg PO TID [facility] Last Admin: 01/26/22 20:52 Dose: 400 mg Documented by: Hydrocortisone (Hydrocortisone 1 % Cream 28.35 Gm Tube) 1 appl TOPICAL BID [facility]; Protocol Last Admin: 01/26/22 20:55 Dose: 1 appl Documented by: Hydroxyzine HCl (Hydroxyzine Hcl 25 Mg Tablet) 25 mg PO BEDTIME PRN PRN Reason: Anxiety Last Admin: 01/26/22 21:20 Dose: 25 mg Documented by: Ibuprofen (Ibuprofen 400 Mg Tablet) 400 mg PO Q6H PRN PRN Reason: Pain, Moderate (Pain Scale 4-6 Last Admin: 01/26/22 20:52 Dose: 400 mg Documented by: Lamotrigine (Lamotrigine 100 Mg Tablet) 200 mg PO BID [facility] Last Admin: 01/26/22 20:51 Dose: 200 mg Documented by: Latanoprost (Latanoprost 0.005 % Ophth No 2.5 Ml Drops) 1 drop EYE-BOTH BEDTIME [facility] Last Admin: 01/26/22 20:58 Dose: 1 drop Documented by: Lidocaine (Lidocaine 4 % Patch Adh..Patch) 1 patch TRANSDERMA DAILY [facility]; Protocol Last Admin: 01/26/22 09:36 Dose: Not Given Documented by: Lisinopril (Lisinopril 20 Mg Tablet) 20 mg PO DAILY [facility]; Protocol Last Admin: 01/26/22 09:25 Dose: 20 mg Documented by: Lorazepam (Lorazepam 0.5 Mg Tablet) 0.5 mg PO Q4H PRN PRN Reason: Anxiety Last Admin: 01/26/22 21:16 Dose: 0.5 mg Documented by: Magnesium Hydroxide (Milk Of Magnesia 30 Ml Oral.Susp) 30 ml PO Q72H PRN PRN Reason: Constipation Last Admin: 12/12/21 10:20 Dose: 30 ml Documented by: Magnesium Hydroxide (Milk Of Magnesia 30 Ml Oral.Susp) 30 ml PO DAILY PRN PRN Reason: Constipation Melatonin (Melatonin 3 Mg Tablet) 6 mg PO BEDTIME [facility] Last Admin: 01/26/22 20:51 Dose: 6 mg Documented by: Multivitamins/Vitamin C (Multivitamin Tablet) 1 tab PO DAILY [facility] Last Admin: 01/26/22 09:25 Dose: 1 tab Documented by: Nortriptyline HCl (Nortriptyline Hcl 25 Mg Capsule) 100 mg PO BEDTIME [facility] Last Admin: 01/26/22 20:53 Dose: 100 mg Documented by: Nystatin (Nystatin Cream 15 Gm Tube) 1 appl TOPICAL BID [facility]; Protocol Last Admin: 01/26/22 21:04 Dose: Not Given Documented by: Ondansetron HCl (Ondansetron Odt 4 Mg Tab.Rapdis) 4 mg TRANSLINGU Q8H PRN PRN Reason: Nausea and Vomiting Last Admin: 01/19/22 01:23 Dose: 4 mg Documented by: Polyethylene Glycol (Polyethylene Glycol 3350 17 Gm Powd.Pack) 17 gm PO DAILY PRN PRN Reason: Constipation Last Admin: 12/22/21 21:39 Dose: 17 gm Documented by: Polyethylene Glycol (Polyethylene Glycol 3350 17 Gm Powd.Pack) 17 gm PO DAILY@1600 [facility] Last Admin: 01/26/22 15:35 Dose: 17 gm Documented by: Pramipexole Dihydrochloride (Pramipexole Di-Hcl 0.125 Mg Tablet) 0.125 mg PO TID [facility] Last Admin: 01/26/22 20:53 Dose: 0.125 mg Documented by: Psyllium Hydrophilic Mucilloid (Psyllium Seed 3.4 Gm Powd.Pack) 3.4 gm PO DAILY [facility] Last Admin: 01/26/22 09:26 Dose: 3.4 gm Documented by: Quetiapine Fumarate (Quetiapine Fumarate 25 Mg Tablet) 25 mg PO BID PRN PRN Reason: Anxiety Last Admin: 01/24/22 15:54 Dose: 25 mg Documented by: Quetiapine Fumarate (Quetiapine Fumarate 50 Mg Tablet) 50 mg PO BEDTIME [facility] Last Admin: 01/26/22 20:53 Dose: 50 mg Documented by: Quetiapine Fumarate (Quetiapine Fumarate 50 Mg Tablet) 50 mg PO DAILY@1300 [facility] Last Admin: 01/26/22 13:06 Dose: 50 mg Documented by: Quetiapine Fumarate (Quetiapine Fumarate 25 Mg Tablet) 25 mg PO DAILY [facility] Last Admin: 01/26/22 09:25 Dose: 25 mg Documented by: Trazodone HCl (Trazodone Hcl 50 Mg Tablet) 50 mg PO BEDTIME PRN PRN Reason: Insomnia Last Admin: 01/21/22 01:18 Dose: 50 mg Documented by: Trazodone HCl (Trazodone Hcl 100 Mg Tablet) 250 mg PO BEDTIME [facility] Last Admin: 01/26/22 20:52 Dose: 250 mg Documented by: Vilazodone HCl (Vilazodone Hcl 20 Mg Tablet) 20 mg PO DAILY [facility] Last Admin: 01/26/22 09:24 Dose: 20 mg Documented by: Vitamin D (Cholecalciferol (Vitamin D3) 10 Mcg Tablet) 20 mcg PO DAILY [facility] Last Admin: 01/26/22 09:24 Dose: 20 mcg Documented by: Allergies Allergies Allergy/AdvReac Type Severity Reaction Status Date / Time fentanyl [FENTANYL] Allergy Intermediate unknown Verified 05/22/21 11:43 Assessment & Plan Assessment & Plan (1) Major depressive disorder, recurrent severe without psychotic features: Status: Acute Code(s): F33.2 - Major depressive disorder, recurrent severe without psychotic features Assessment and Plan: Hold Viibryd seems to be causing adverse reaction monitor nortriptyline check level consider alternative treatments patient was seen by advocate today encourage additional hope cont seroquel for anxiety theresa sx (2) Cognitive and neurobehavioral dysfunction following brain injury: Status: Acute Code(s): G31.89 - Other specified degenerative diseases of nervous system; F09 - Unspecified mental disorder due to known physiological condition; S06.9X9S - Unspecified intracranial injury with loss of consciousness of unspecified duration, sequela (3) HTN (hypertension): Status: Acute Code(s): I10 - Essential (primary) hypertension Plan inc vilazadone 20 mg clk levels lower lamictal 150 bid may be contributing to balance f idifficulties to referral to rehab setting as stable very motivated Consider Depakote or Trileptal and discontinue gabapentin versus taper and discontinue Lamictal watch for any over activation with Viibryd covering 01/25 continue with current treatment regimen 01/26 continue with current treatment regimen I spent minutes with the patient and/or on the patient floor today, greater than?50% of which was spent counseling/coordinating care. Reason for contiued inpatient stay Substantial Risk for: med/psych decompensation
[2022-01-27] MEDS: Acetaminophen 325 MG TABLET 650 MG PO ×2 (03:34→20:38)
[2022-01-27 06:00] VITALS: BP 181/95; PULSE 85; RESP 14; TEMP 36.3; O2SAT 96
[2022-01-27 08:22] LABS: Lamotrigine Lamictal 8.6 mcg/mL (4.0-18.0)
[2022-01-27] MEDS: Finasteride 5 MG TABLET PO (09:36)
[2022-01-27] MEDS: Pramipexole Di-HCL 0.125 MG TABLET PO ×3 (09:37→20:41)
[2022-01-27] MEDS: Cholecalciferol (Vitamin D3) 10 MCG TABLET 20 MCG PO (09:37)
[2022-01-27] MEDS: Ibuprofen 400 MG TABLET PO (09:37)
[2022-01-27] MEDS: Gabapentin 400 MG CAPSULE PO ×3 (09:37→20:41)
[2022-01-27] MEDS: Vilazodone HCL 20 MG TABLET PO (09:37)
[2022-01-27] MEDS: lisinopriL 20 MG TABLET PO (09:37)
[2022-01-27] MEDS: lamoTRIgine 100 MG TABLET 200 MG PO ×2 (09:38→20:38)
[2022-01-27] MEDS: Multivitamin TABLET 1 TAB PO (09:38)
[2022-01-27] MEDS: QUEtiapine Fumarate 25 MG TABLET PO ×2 (09:38→11:43)
[2022-01-27] MEDS: amLODIPine Besylate 5 MG TABLET PO (09:38)
[2022-01-27] MEDS: LORazepam 0.5 MG TABLET PO ×2 (09:38→20:42)
[2022-01-27] MEDS: Docusate Sodium 100 MG CAPSULE PO (09:43)
[2022-01-27 11:40] VITALS: BP 125/63; PULSE 84; O2SAT 99
[2022-01-27] MEDS: QUEtiapine Fumarate 50 MG TABLET PO ×2 (14:09→20:42)
--- NOTE | 2022-01-27 14:18 | HO.PSYCHPN ---
Subjective Subjective Date of Service: 01/27/22 Reason For Visit: depression Subjective Notes: Conditional Voluntary Healthcare Proxy: No Guardianship: No Interim History: pt depressed denies si feels under pressure cooperates with PT can be irritable reactive doing better with vilazadone d/c Medication Compliance: Yes Side effects from medications: No Mental Status Exam Mental Status Exam Narrative: Patient Appearance:?adequately groomed; wearing casual clothing, glasses. Patient Orientation:?Person, Place, Time and Situation (Will) Level of Consciousness:?Awake Patient Behavior:?Appropriate and Anxious Mood Description:?Depressed Affect Description:?Constricted Patient Cognition Impaired:?No Ability to Follow Directions:?Good Speech Pattern:?Clear Hallucinations:?None Delusions:?Not Present Thought Process:?Rumination Thought Content: currently denies SI/HI Depressive Symptoms:?Increased Anxiety, Increased Irritability, Feelings of Worthlessness, Hopelessness and Unhappiness Judgement and Insight: fair Some intermittent irritability and verbal aggression Diagnostics Vital Signs (24Hr): Vital Signs - 24 hr 01/26/22 21:17 01/27/22 11:40 Temperature 98.4 F Pulse Rate 84 84 Respiratory Rate 18 Blood Pressure 125/63 125/63 Pulse Oximetry 99 99 BMI result Body Mass Index 30.5 Labs Results: 01/19/22 09:00 01/19/22 09:00 Labs: Laboratory Results - last 48 hr 01/22/22 07:05 Lamotrigine 8.6 Imaging Radiology Impressions: ITS Impressions Hip X-Ray 01/05/22 16:00 IMPRESSION: Healed old fracture right femoral neck. The femoral neck screws that had been present in 2010 has been removed. No acute finding. Medications Medications Current Medications Acetaminophen (Acetaminophen 325 Mg Tablet) 650 mg PO Q6H PRN PRN Reason: Pain (Scale Score 1-3) Last Admin: 01/27/22 03:34 Dose: 650 mg Documented by: Al Hydroxide/Mg Hydroxide (Magnesium Hydrox/Alum Hydrox 30 Ml Oral.Susp) 30 ml PO Q6H PRN PRN Reason: Heartburn/Nausea Last Admin: 12/16/21 14:54 Dose: 30 ml Documented by: Albuterol Sulfate (Albuterol Sulfate 90 Mcg 8 Gm Inhaler) 2 puff INHALE Q6H PRN PRN Reason: Shortness Of Breath Last Admin: 12/24/21 21:33 Dose: 2 puff Documented by: Amlodipine Besylate (Amlodipine Besylate 5 Mg Tablet) 5 mg PO DAILY [facility]; Protocol Last Admin: 01/27/22 09:38 Dose: 5 mg Documented by: Artificial Tears (Artificial Tears 15 Ml Drops) 1 drop EYE-BOTH Q1H PRN PRN Reason: Dry Eye(S) Atenolol (Atenolol 25 Mg Tablet) 25 mg PO DAILY [facility]; Protocol Last Admin: 01/18/22 09:33 Dose: 25 mg Documented by: Docusate Sodium (Docusate Sodium 100 Mg Capsule) 100 mg PO BID PRN PRN Reason: Constipation Last Admin: 01/27/22 09:43 Dose: 100 mg Documented by: Finasteride (Finasteride 5 Mg Tablet) 5 mg PO DAILY [facility] Last Admin: 01/27/22 09:36 Dose: 5 mg Documented by: Gabapentin (Gabapentin 400 Mg Capsule) 400 mg PO TID [facility] Last Admin: 01/27/22 14:09 Dose: 400 mg Documented by: Hydrocortisone (Hydrocortisone 1 % Cream 28.35 Gm Tube) 1 appl TOPICAL BID [facility]; Protocol Last Admin: 01/27/22 09:45 Dose: Not Given Documented by: Hydroxyzine HCl (Hydroxyzine Hcl 25 Mg Tablet) 25 mg PO BEDTIME PRN PRN Reason: Anxiety Last Admin: 01/26/22 21:20 Dose: 25 mg Documented by: Ibuprofen (Ibuprofen 400 Mg Tablet) 400 mg PO Q6H PRN PRN Reason: Pain, Moderate (Pain Scale 4-6 Last Admin: 01/27/22 09:37 Dose: 400 mg Documented by: Lamotrigine (Lamotrigine 100 Mg Tablet) 200 mg PO BID [facility] Last Admin: 01/27/22 09:38 Dose: 200 mg Documented by: Latanoprost (Latanoprost 0.005 % Ophth No 2.5 Ml Drops) 1 drop EYE-BOTH BEDTIME [facility] Last Admin: 01/26/22 20:58 Dose: 1 drop Documented by: Lidocaine (Lidocaine 4 % Patch Adh..Patch) 1 patch TRANSDERMA DAILY [facility]; Protocol Last Admin: 01/27/22 09:45 Dose: Not Given Documented by: Lisinopril (Lisinopril 20 Mg Tablet) 20 mg PO DAILY [facility]; Protocol Last Admin: 01/27/22 09:37 Dose: 20 mg Documented by: Lorazepam (Lorazepam 0.5 Mg Tablet) 0.5 mg PO Q4H PRN PRN Reason: Anxiety Last Admin: 01/27/22 09:38 Dose: 0.5 mg Documented by: Magnesium Hydroxide (Milk Of Magnesia 30 Ml Oral.Susp) 30 ml PO Q72H PRN PRN Reason: Constipation Last Admin: 12/12/21 10:20 Dose: 30 ml Documented by: Magnesium Hydroxide (Milk Of Magnesia 30 Ml Oral.Susp) 30 ml PO DAILY PRN PRN Reason: Constipation Melatonin (Melatonin 3 Mg Tablet) 6 mg PO BEDTIME [facility] Last Admin: 01/26/22 20:51 Dose: 6 mg Documented by: Multivitamins/Vitamin C (Multivitamin Tablet) 1 tab PO DAILY [facility] Last Admin: 01/27/22 09:38 Dose: 1 tab Documented by: Nortriptyline HCl (Nortriptyline Hcl 25 Mg Capsule) 100 mg PO BEDTIME [facility] Last Admin: 01/26/22 20:53 Dose: 100 mg Documented by: Nystatin (Nystatin Cream 15 Gm Tube) 1 appl TOPICAL BID [facility]; Protocol Last Admin: 01/27/22 09:45 Dose: Not Given Documented by: Ondansetron HCl (Ondansetron Odt 4 Mg Tab.Rapdis) 4 mg TRANSLINGU Q8H PRN PRN Reason: Nausea and Vomiting Last Admin: 01/19/22 01:23 Dose: 4 mg Documented by: Polyethylene Glycol (Polyethylene Glycol 3350 17 Gm Powd.Pack) 17 gm PO DAILY PRN PRN Reason: Constipation Last Admin: 12/22/21 21:39 Dose: 17 gm Documented by: Polyethylene Glycol (Polyethylene Glycol 3350 17 Gm Powd.Pack) 17 gm PO DAILY@1600 [facility] Last Admin: 01/26/22 15:35 Dose: 17 gm Documented by: Pramipexole Dihydrochloride (Pramipexole Di-Hcl 0.125 Mg Tablet) 0.125 mg PO TID [facility] Last Admin: 01/27/22 14:09 Dose: 0.125 mg Documented by: Psyllium Hydrophilic Mucilloid (Psyllium Seed 3.4 Gm Powd.Pack) 3.4 gm PO DAILY [facility] Last Admin: 01/27/22 09:36 Dose: 3.4 gm Documented by: Quetiapine Fumarate (Quetiapine Fumarate 25 Mg Tablet) 25 mg PO BID PRN PRN Reason: Anxiety Last Admin: 01/27/22 11:43 Dose: 25 mg Documented by: Quetiapine Fumarate (Quetiapine Fumarate 50 Mg Tablet) 50 mg PO BEDTIME [facility] Last Admin: 01/26/22 20:53 Dose: 50 mg Documented by: Quetiapine Fumarate (Quetiapine Fumarate 50 Mg Tablet) 50 mg PO DAILY@1300 [facility] Last Admin: 01/27/22 14:09 Dose: 50 mg Documented by: Quetiapine Fumarate (Quetiapine Fumarate 25 Mg Tablet) 25 mg PO DAILY [facility] Last Admin: 01/27/22 09:38 Dose: 25 mg Documented by: Trazodone HCl (Trazodone Hcl 50 Mg Tablet) 50 mg PO BEDTIME PRN PRN Reason: Insomnia Last Admin: 01/21/22 01:18 Dose: 50 mg Documented by: Trazodone HCl (Trazodone Hcl 100 Mg Tablet) 250 mg PO BEDTIME [facility] Last Admin: 01/26/22 20:52 Dose: 250 mg Documented by: Vilazodone HCl (Vilazodone Hcl 20 Mg Tablet) 20 mg PO DAILY [facility] Last Admin: 01/27/22 09:37 Dose: 20 mg Documented by: Vitamin D (Cholecalciferol (Vitamin D3) 10 Mcg Tablet) 20 mcg PO DAILY [facility] Last Admin: 01/27/22 09:37 Dose: 20 mcg Documented by: Allergies Allergies Allergy/AdvReac Type Severity Reaction Status Date / Time fentanyl [FENTANYL] Allergy Intermediate unknown Verified 05/22/21 11:43 Assessment & Plan Assessment & Plan (1) Major depressive disorder, recurrent severe without psychotic features: Status: Acute Code(s): F33.2 - Major depressive disorder, recurrent severe without psychotic features Assessment and Plan: cont nortrip seroquel encourage alt perspective physical rehab (2) Cognitive and neurobehavioral dysfunction following brain injury: Status: Acute Code(s): G31.89 - Other specified degenerative diseases of nervous system; F09 - Unspecified mental disorder due to known physiological condition; S06.9X9S - Unspecified intracranial injury with loss of consciousness of unspecified duration, sequela (3) HTN (hypertension): Status: Acute Code(s): I10 - Essential (primary) hypertension I spent __30____ minutes with the patient and/or on the patient floor today, greater than?50% of which was spent counseling/coordinating care. Reason for contiued inpatient stay Substantial Risk for: inability to function, rapid decompensation and med/psych decompensation
[2022-01-27] MEDS: polyethylene glycoL 3350 17 GM POWD.PACK PO (17:55)
[2022-01-27 18:00] VITALS: BP 144/67; PULSE 67; RESP 18; TEMP 36.2; O2SAT 98
[2022-01-27] MEDS: Latanoprost 0.005 % Ophth Sol 2.5 ML DROPS 1 DROP EYE-BOTH (20:34)
[2022-01-27] MEDS: Nortriptyline HCl 25 MG CAPSULE 100 MG PO (20:37)
[2022-01-27] MEDS: traZODone HCL 100 MG TABLET 250 MG PO (20:40)
[2022-01-27] MEDS: Hydrocortisone 1 % Cream 28.35 GM TUBE 1 APPL TOPICAL (20:47)
[2022-01-27] MEDS: Nystatin Cream 15 GM TUBE 1 APPL TOPICAL (20:48)
[2022-01-28] MEDS: hydrOXYzine HCL 25 MG TABLET PO (02:39)
[2022-01-28 06:00] VITALS: BP 146/77; PULSE 77; RESP 15; TEMP 36.3; O2SAT 97
[2022-01-28] MEDS: Ibuprofen 400 MG TABLET PO (06:11)
[2022-01-28] MEDS: Vilazodone HCL 20 MG TABLET PO (07:57)
[2022-01-28] MEDS: QUEtiapine Fumarate 25 MG TABLET PO (07:57)
[2022-01-28] MEDS: amLODIPine Besylate 5 MG TABLET PO (07:57)
[2022-01-28] MEDS: Finasteride 5 MG TABLET PO (07:57)
[2022-01-28] MEDS: lisinopriL 20 MG TABLET PO (07:57)
[2022-01-28] MEDS: Multivitamin TABLET 1 TAB PO (07:57)
[2022-01-28] MEDS: Gabapentin 400 MG CAPSULE PO ×3 (07:57→21:33)
[2022-01-28] MEDS: Pramipexole Di-HCL 0.125 MG TABLET PO ×3 (07:58→21:36)
[2022-01-28] MEDS: Cholecalciferol (Vitamin D3) 10 MCG TABLET 20 MCG PO (07:58)
[2022-01-28] MEDS: lamoTRIgine 25 MG TABLET 150 MG PO ×2 (08:00→22:03)
--- NOTE | 2022-01-28 10:41 | P.PNPSI_ITS ---
Subjective Subjective Date of Service: 01/28/22 Reason For Visit: depression Subjective Notes: Conditional Voluntary Healthcare Proxy: No Guardianship: No Interim History: Pt gradually improving remains depressed and anxious but no longer in the same state of agitation cooperative very focused on rehab min doing his physical therapy exercises. Doing better off Viibryd. Medication Compliance: Yes Side effects from medications: Yes (Agitation from Viibryd) Review of Systems Medical Review of Systems: unchanged Mental Status Exam Mental Status Exam Narrative: Patient Appearance:?adequately groomed; wearing casual clothing, glasses. Patient Orientation:?Person, Place, Time and Situation (Will) Level of Consciousness:?Awake Patient Behavior:?Appropriate and Anxious Mood Description:?Depressed Affect Description:?Constricted Patient Cognition Impaired:?No Ability to Follow Directions:?Good Speech Pattern:?Clear Hallucinations:?None Delusions:?Not Present Thought Process:?Rumination Thought Content: currently denies SI/HI Depressive Symptoms:?Increased Anxiety, Increased Irritability, Feelings of Worthlessness, Hopelessness and Unhappiness Judgement and Insight: Improving Diagnostics Vital Signs (24Hr): Vital Signs - 24 hr 01/28/22 18:00 01/29/22 09:12 Temperature 97.6 F 97.3 F Pulse Rate 84 75 Respiratory Rate 16 17 Blood Pressure 152/88 H 154/71 H Pulse Oximetry 95 95 BMI result Body Mass Index 30.5 Labs Results: 01/19/22 09:00 01/19/22 09:00 Labs: Laboratory Results - last 48 hr 01/22/22 07:05 Nortriptyline 94 Imaging Radiology Impressions: ITS Impressions Hip X-Ray 01/05/22 16:00 IMPRESSION: Healed old fracture right femoral neck. The femoral neck screws that had been present in 2010 has been removed. No acute finding. Medications Medications Current Medications Acetaminophen (Acetaminophen 325 Mg Tablet) 650 mg PO Q6H PRN PRN Reason: Pain (Scale Score 1-3) Last Admin: 01/28/22 21:34 Dose: 650 mg Documented by: Al Hydroxide/Mg Hydroxide (Magnesium Hydrox/Alum Hydrox 30 Ml Oral.Susp) 30 ml PO Q6H PRN PRN Reason: Heartburn/Nausea Last Admin: 12/16/21 14:54 Dose: 30 ml Documented by: Albuterol Sulfate (Albuterol Sulfate 90 Mcg 8 Gm Inhaler) 2 puff INHALE Q6H PRN PRN Reason: Shortness Of Breath Last Admin: 12/24/21 21:33 Dose: 2 puff Documented by: Amlodipine Besylate (Amlodipine Besylate 5 Mg Tablet) 5 mg PO DAILY [facility]; Protocol Last Admin: 01/29/22 09:26 Dose: 5 mg Documented by: Artificial Tears (Artificial Tears 15 Ml Drops) 1 drop EYE-BOTH Q1H PRN PRN Reason: Dry Eye(S) Atenolol (Atenolol 25 Mg Tablet) 25 mg PO DAILY [facility]; Protocol Last Admin: 01/18/22 09:33 Dose: 25 mg Documented by: Docusate Sodium (Docusate Sodium 100 Mg Capsule) 100 mg PO BID PRN PRN Reason: Constipation Last Admin: 01/29/22 09:25 Dose: 100 mg Documented by: Finasteride (Finasteride 5 Mg Tablet) 5 mg PO DAILY [facility] Last Admin: 01/29/22 09:22 Dose: 5 mg Documented by: Gabapentin (Gabapentin 400 Mg Capsule) 400 mg PO TID [facility] Last Admin: 01/29/22 09:24 Dose: 400 mg Documented by: Hydrocortisone (Hydrocortisone 1 % Cream 28.35 Gm Tube) 1 appl TOPICAL BID [facility]; Protocol Last Admin: 01/29/22 09:30 Dose: Not Given Documented by: Hydroxyzine HCl (Hydroxyzine Hcl 25 Mg Tablet) 25 mg PO BEDTIME PRN PRN Reason: Anxiety Last Admin: 01/29/22 04:18 Dose: 25 mg Documented by: Ibuprofen (Ibuprofen 400 Mg Tablet) 400 mg PO Q6H PRN PRN Reason: Pain, Moderate (Pain Scale 4-6 Last Admin: 01/29/22 04:18 Dose: 400 mg Documented by: Lamotrigine (Lamotrigine 25 Mg Tablet) 150 mg PO BID [facility] Last Admin: 01/29/22 09:23 Dose: 150 mg Documented by: Latanoprost (Latanoprost 0.005 % Ophth No 2.5 Ml Drops) 1 drop EYE-BOTH BEDTIME [facility] Last Admin: 01/28/22 21:32 Dose: 1 drop Documented by: Lidocaine (Lidocaine 4 % Patch Adh..Patch) 1 patch TRANSDERMA DAILY [facility]; Protocol Last Admin: 01/29/22 09:22 Dose: Not Given Documented by: Lisinopril (Lisinopril 20 Mg Tablet) 20 mg PO DAILY [facility]; Protocol Last Admin: 01/29/22 09:24 Dose: 20 mg Documented by: Lorazepam (Lorazepam 0.5 Mg Tablet) 0.5 mg PO Q4H PRN PRN Reason: Anxiety Last Admin: 01/28/22 21:36 Dose: 0.5 mg Documented by: Magnesium Hydroxide (Milk Of Magnesia 30 Ml Oral.Susp) 30 ml PO Q72H PRN PRN Reason: Constipation Last Admin: 12/12/21 10:20 Dose: 30 ml Documented by: Magnesium Hydroxide (Milk Of Magnesia 30 Ml Oral.Susp) 30 ml PO DAILY PRN PRN Reason: Constipation Melatonin (Melatonin 3 Mg Tablet) 6 mg PO BEDTIME [facility] Last Admin: 01/28/22 22:04 Dose: 6 mg Documented by: Multivitamins/Vitamin C (Multivitamin Tablet) 1 tab PO DAILY [facility] Last Admin: 01/29/22 09:24 Dose: 1 tab Documented by: Nortriptyline HCl (Nortriptyline Hcl 25 Mg Capsule) 100 mg PO BEDTIME [facility] Last Admin: 01/28/22 21:35 Dose: 100 mg Documented by: Nystatin (Nystatin Cream 15 Gm Tube) 1 appl TOPICAL BID [facility]; Protocol Last Admin: 01/29/22 09:30 Dose: Not Given Documented by: Ondansetron HCl (Ondansetron Odt 4 Mg Tab.Rapdis) 4 mg TRANSLINGU Q8H PRN PRN Reason: Nausea and Vomiting Last Admin: 01/19/22 01:23 Dose: 4 mg Documented by: Polyethylene Glycol (Polyethylene Glycol 3350 17 Gm Powd.Pack) 17 gm PO DAILY PRN PRN Reason: Constipation Last Admin: 12/22/21 21:39 Dose: 17 gm Documented by: Polyethylene Glycol (Polyethylene Glycol 3350 17 Gm Powd.Pack) 17 gm PO DAILY@1600 [facility] Last Admin: 01/28/22 16:55 Dose: Not Given Documented by: Pramipexole Dihydrochloride (Pramipexole Di-Hcl 0.125 Mg Tablet) 0.125 mg PO TID [facility] Last Admin: 01/29/22 09:25 Dose: 0.125 mg Documented by: Psyllium Hydrophilic Mucilloid (Psyllium Seed 3.4 Gm Powd.Pack) 3.4 gm PO DAILY [facility] Last Admin: 01/29/22 09:21 Dose: 3.4 gm Documented by: Quetiapine Fumarate (Quetiapine Fumarate 25 Mg Tablet) 25 mg PO BID PRN PRN Reason: Anxiety Last Admin: 01/27/22 11:43 Dose: 25 mg Documented by: Quetiapine Fumarate (Quetiapine Fumarate 50 Mg Tablet) 50 mg PO BEDTIME [facility] Last Admin: 01/28/22 21:38 Dose: 50 mg Documented by: Quetiapine Fumarate (Quetiapine Fumarate 50 Mg Tablet) 50 mg PO DAILY@1300 [facility] Last Admin: 01/28/22 15:37 Dose: 50 mg Documented by: Quetiapine Fumarate (Quetiapine Fumarate 25 Mg Tablet) 25 mg PO DAILY [facility] Last Admin: 01/29/22 09:26 Dose: 25 mg Documented by: Trazodone HCl (Trazodone Hcl 50 Mg Tablet) 50 mg PO BEDTIME PRN PRN Reason: Insomnia Last Admin: 01/21/22 01:18 Dose: 50 mg Documented by: Trazodone HCl (Trazodone Hcl 100 Mg Tablet) 250 mg PO BEDTIME [facility] Last Admin: 01/28/22 21:32 Dose: 250 mg Documented by: Vilazodone HCl (Vilazodone Hcl 20 Mg Tablet) 20 mg PO DAILY [facility] Last Admin: 01/29/22 09:26 Dose: 20 mg Documented by: Vitamin D (Cholecalciferol (Vitamin D3) 10 Mcg Tablet) 20 mcg PO DAILY [facility] Last Admin: 01/29/22 09:26 Dose: 20 mcg Documented by: Allergies Allergies Allergy/AdvReac Type Severity Reaction Status Date / Time fentanyl [FENTANYL] Allergy Intermediate unknown Verified 05/22/21 11:43 Assessment & Plan Assessment & Plan (1) Major depressive disorder, recurrent severe without psychotic features: Status: Acute Code(s): F33.2 - Major depressive disorder, recurrent severe without psychotic features Assessment and Plan: cont nortrip seroquel encourage alt perspective physical rehab patient working at changing perspective trying to look at things in a more neutral way and to be less harsh in judgment (2) Cognitive and neurobehavioral dysfunction following brain injury: Status: Acute Code(s): G31.89 - Other specified degenerative diseases of nervous system; F09 - Unspecified mental disorder due to known physiological condition; S06.9X9S - Unspecified intracranial injury with loss of consciousness of unspecified duration, sequela (3) HTN (hypertension): Status: Acute Code(s): I10 - Essential (primary) hypertension I spent __30____ minutes with the patient and/or on the patient floor today, greater than?50% of which was spent counseling/coordinating care. Patient educated on: diagnosis, medication risk/benefits and therapeutic strategies Reason for contiued inpatient stay Substantial Risk for: harm to self, inability to function and rapid decompensation
[2022-01-28] MEDS: QUEtiapine Fumarate 50 MG TABLET PO ×2 (15:37→21:38)
[2022-01-28] MEDS: Acetaminophen 325 MG TABLET 650 MG PO ×2 (15:56→21:34)
[2022-01-28 17:12] LABS: Nortriptyline 94 mcg/L (50-150)
[2022-01-28 18:00] VITALS: BP 152/88; PULSE 84; RESP 16; TEMP 36.4; O2SAT 95
[2022-01-28] MEDS: traZODone HCL 100 MG TABLET 250 MG PO (21:32)
[2022-01-28] MEDS: Latanoprost 0.005 % Ophth Sol 2.5 ML DROPS 1 DROP EYE-BOTH (21:32)
[2022-01-28] MEDS: Nortriptyline HCl 25 MG CAPSULE 100 MG PO (21:35)
[2022-01-28] MEDS: LORazepam 0.5 MG TABLET PO (21:36)
[2022-01-28] MEDS: Hydrocortisone 1 % Cream 28.35 GM TUBE 1 APPL TOPICAL (21:43)
[2022-01-28] MEDS: Nystatin Cream 15 GM TUBE 1 APPL TOPICAL (21:43)
[2022-01-28] MEDS: Docusate Sodium 100 MG CAPSULE PO (22:03)
[2022-01-28] MEDS: Melatonin 3 MG TABLET 6 MG PO (22:04)
[2022-01-29] MEDS: hydrOXYzine HCL 25 MG TABLET PO (04:18)
[2022-01-29] MEDS: Ibuprofen 400 MG TABLET PO (04:18)
[2022-01-29 09:12] VITALS: BP 154/71; PULSE 75; RESP 17; TEMP 36.3; O2SAT 95
[2022-01-29] MEDS: Finasteride 5 MG TABLET PO (09:22)
[2022-01-29] MEDS: lamoTRIgine 25 MG TABLET 150 MG PO ×2 (09:23→20:48)
[2022-01-29] MEDS: lisinopriL 20 MG TABLET PO (09:24)
[2022-01-29] MEDS: Gabapentin 400 MG CAPSULE PO ×3 (09:24→20:49)
[2022-01-29] MEDS: Multivitamin TABLET 1 TAB PO (09:24)
[2022-01-29] MEDS: Pramipexole Di-HCL 0.125 MG TABLET PO ×3 (09:25→20:49)
[2022-01-29] MEDS: Docusate Sodium 100 MG CAPSULE PO ×2 (09:25→20:56)
[2022-01-29] MEDS: Vilazodone HCL 20 MG TABLET PO (09:26)
[2022-01-29] MEDS: Cholecalciferol (Vitamin D3) 10 MCG TABLET 20 MCG PO (09:26)
[2022-01-29] MEDS: QUEtiapine Fumarate 25 MG TABLET PO (09:26)
[2022-01-29] MEDS: amLODIPine Besylate 5 MG TABLET PO (09:26)
[2022-01-29 10:45] VITALS: BP 154/71; PULSE 75; O2SAT 95
[2022-01-29] MEDS: LORazepam 0.5 MG TABLET PO ×2 (13:42→21:26)
[2022-01-29] MEDS: QUEtiapine Fumarate 50 MG TABLET PO ×2 (13:42→20:50)
[2022-01-29] MEDS: polyethylene glycoL 3350 17 GM POWD.PACK PO (16:06)
[2022-01-29 18:00] VITALS: BP 126/75; PULSE 74; RESP 20; TEMP 36.6; O2SAT 96
[2022-01-29] MEDS: Melatonin 3 MG TABLET 6 MG PO (20:49)
[2022-01-29] MEDS: Nortriptyline HCl 25 MG CAPSULE 100 MG PO (20:49)
[2022-01-29] MEDS: traZODone HCL 100 MG TABLET 250 MG PO (20:49)
[2022-01-29] MEDS: Hydrocortisone 1 % Cream 28.35 GM TUBE 1 APPL TOPICAL (20:50)
[2022-01-29] MEDS: Latanoprost 0.005 % Ophth Sol 2.5 ML DROPS 1 DROP EYE-BOTH (20:50)
--- NOTE | 2022-01-29 21:45 | HO.PSYCHPN ---
Subjective Subjective Date of Service: 01/29/22 Reason For Visit: depression Subjective Notes: Conditional Voluntary Healthcare Proxy: No Guardianship: No Medical Problems Affecting Mental Status: No ( t) Interim History: pt dealing in more realistic way with his situation less defensive trying to deal with situation working with PT quite activwe cont nortrip seroquel Medication Compliance: Yes Side effects from medications: Yes Attending Groups: No Mental Status Exam Mental Status Exam Patient Appearance: Appropriate Patient Orientation: Person, Place, Time and Situation Level of Consciousness: Awake Patient Behavior: Appropriate Mood Description: Constricted, Flat and Apprehensive Affect Description: Appropriate and Apprehensive Patient Cognition Impaired: No Ability to Follow Directions: Good Speech Pattern: Clear Memory Description: Intact Hallucinations: None Delusions: Not Present Thought Process: Rumination Thought Content: positive for Obsessional Thoughts and positive for Suicidal Ideation (no active thoughts ) Depressive Symptoms: Increased Anxiety, Low Self Esteem and Difficulty Concentrating Diagnostics Vital Signs (24Hr): Vital Signs - 24 hr 01/29/22 09:12 01/29/22 10:45 Temperature 97.3 F Pulse Rate 75 75 Respiratory Rate 17 Blood Pressure 154/71 H 154/71 H Pulse Oximetry 95 95 BMI result Body Mass Index 30.5 Labs Results: 01/19/22 09:00 01/19/22 09:00 Labs: Laboratory Results - last 48 hr 01/22/22 07:05 Nortriptyline 94 Imaging Radiology Impressions: ITS Impressions Hip X-Ray 01/05/22 16:00 IMPRESSION: Healed old fracture right femoral neck. The femoral neck screws that had been present in 2010 has been removed. No acute finding. Medications Medications Current Medications Acetaminophen (Acetaminophen 325 Mg Tablet) 650 mg PO Q6H PRN PRN Reason: Pain (Scale Score 1-3) Last Admin: 01/28/22 21:34 Dose: 650 mg Documented by: Al Hydroxide/Mg Hydroxide (Magnesium Hydrox/Alum Hydrox 30 Ml Oral.Susp) 30 ml PO Q6H PRN PRN Reason: Heartburn/Nausea Last Admin: 12/16/21 14:54 Dose: 30 ml Documented by: Albuterol Sulfate (Albuterol Sulfate 90 Mcg 8 Gm Inhaler) 2 puff INHALE Q6H PRN PRN Reason: Shortness Of Breath Last Admin: 12/24/21 21:33 Dose: 2 puff Documented by: Amlodipine Besylate (Amlodipine Besylate 5 Mg Tablet) 5 mg PO DAILY [facility]; Protocol Last Admin: 01/29/22 09:26 Dose: 5 mg Documented by: Artificial Tears (Artificial Tears 15 Ml Drops) 1 drop EYE-BOTH Q1H PRN PRN Reason: Dry Eye(S) Atenolol (Atenolol 25 Mg Tablet) 25 mg PO DAILY [facility]; Protocol Last Admin: 01/18/22 09:33 Dose: 25 mg Documented by: Docusate Sodium (Docusate Sodium 100 Mg Capsule) 100 mg PO BID PRN PRN Reason: Constipation Last Admin: 01/29/22 20:56 Dose: 100 mg Documented by: Finasteride (Finasteride 5 Mg Tablet) 5 mg PO DAILY [facility] Last Admin: 01/29/22 09:22 Dose: 5 mg Documented by: Gabapentin (Gabapentin 400 Mg Capsule) 400 mg PO TID [facility] Last Admin: 01/29/22 20:49 Dose: 400 mg Documented by: Hydrocortisone (Hydrocortisone 1 % Cream 28.35 Gm Tube) 1 appl TOPICAL BID [facility]; Protocol Last Admin: 01/29/22 20:50 Dose: 1 appl Documented by: Hydroxyzine HCl (Hydroxyzine Hcl 25 Mg Tablet) 25 mg PO BEDTIME PRN PRN Reason: Anxiety Last Admin: 01/29/22 04:18 Dose: 25 mg Documented by: Ibuprofen (Ibuprofen 400 Mg Tablet) 400 mg PO Q6H PRN PRN Reason: Pain, Moderate (Pain Scale 4-6 Last Admin: 01/29/22 04:18 Dose: 400 mg Documented by: Lamotrigine (Lamotrigine 25 Mg Tablet) 150 mg PO BID [facility] Last Admin: 01/29/22 20:48 Dose: 150 mg Documented by: Latanoprost (Latanoprost 0.005 % Ophth No 2.5 Ml Drops) 1 drop EYE-BOTH BEDTIME [facility] Last Admin: 01/29/22 20:50 Dose: 1 drop Documented by: Lidocaine (Lidocaine 4 % Patch Adh..Patch) 1 patch TRANSDERMA DAILY [facility]; Protocol Last Admin: 01/29/22 09:22 Dose: Not Given Documented by: Lisinopril (Lisinopril 20 Mg Tablet) 20 mg PO DAILY [facility]; Protocol Last Admin: 01/29/22 09:24 Dose: 20 mg Documented by: Lorazepam (Lorazepam 0.5 Mg Tablet) 0.5 mg PO Q4H PRN PRN Reason: Anxiety Last Admin: 01/29/22 21:26 Dose: 0.5 mg Documented by: Magnesium Hydroxide (Milk Of Magnesia 30 Ml Oral.Susp) 30 ml PO Q72H PRN PRN Reason: Constipation Last Admin: 12/12/21 10:20 Dose: 30 ml Documented by: Magnesium Hydroxide (Milk Of Magnesia 30 Ml Oral.Susp) 30 ml PO DAILY PRN PRN Reason: Constipation Melatonin (Melatonin 3 Mg Tablet) 6 mg PO BEDTIME [facility] Last Admin: 01/29/22 20:49 Dose: 6 mg Documented by: Multivitamins/Vitamin C (Multivitamin Tablet) 1 tab PO DAILY [facility] Last Admin: 01/29/22 09:24 Dose: 1 tab Documented by: Nortriptyline HCl (Nortriptyline Hcl 25 Mg Capsule) 100 mg PO BEDTIME [facility] Last Admin: 01/29/22 20:49 Dose: 100 mg Documented by: Nystatin (Nystatin Cream 15 Gm Tube) 1 appl TOPICAL BID [facility]; Protocol Last Admin: 01/29/22 20:51 Dose: Not Given Documented by: Ondansetron HCl (Ondansetron Odt 4 Mg Tab.Rapdis) 4 mg TRANSLINGU Q8H PRN PRN Reason: Nausea and Vomiting Last Admin: 01/19/22 01:23 Dose: 4 mg Documented by: Polyethylene Glycol (Polyethylene Glycol 3350 17 Gm Powd.Pack) 17 gm PO DAILY PRN PRN Reason: Constipation Last Admin: 12/22/21 21:39 Dose: 17 gm Documented by: Polyethylene Glycol (Polyethylene Glycol 3350 17 Gm Powd.Pack) 17 gm PO DAILY@1600 [facility] Last Admin: 01/29/22 16:06 Dose: 17 gm Documented by: Pramipexole Dihydrochloride (Pramipexole Di-Hcl 0.125 Mg Tablet) 0.125 mg PO TID [facility] Last Admin: 01/29/22 20:49 Dose: 0.125 mg Documented by: Psyllium Hydrophilic Mucilloid (Psyllium Seed 3.4 Gm Powd.Pack) 3.4 gm PO DAILY [facility] Last Admin: 01/29/22 09:21 Dose: 3.4 gm Documented by: Quetiapine Fumarate (Quetiapine Fumarate 25 Mg Tablet) 25 mg PO BID PRN PRN Reason: Anxiety Last Admin: 01/27/22 11:43 Dose: 25 mg Documented by: Quetiapine Fumarate (Quetiapine Fumarate 50 Mg Tablet) 50 mg PO BEDTIME [facility] Last Admin: 01/29/22 20:50 Dose: 50 mg Documented by: Quetiapine Fumarate (Quetiapine Fumarate 50 Mg Tablet) 50 mg PO DAILY@1300 [facility] Last Admin: 01/29/22 13:42 Dose: 50 mg Documented by: Quetiapine Fumarate (Quetiapine Fumarate 25 Mg Tablet) 25 mg PO DAILY [facility] Last Admin: 01/29/22 09:26 Dose: 25 mg Documented by: Trazodone HCl (Trazodone Hcl 50 Mg Tablet) 50 mg PO BEDTIME PRN PRN Reason: Insomnia Last Admin: 01/21/22 01:18 Dose: 50 mg Documented by: Trazodone HCl (Trazodone Hcl 100 Mg Tablet) 250 mg PO BEDTIME [facility] Last Admin: 01/29/22 20:49 Dose: 250 mg Documented by: Vilazodone HCl (Vilazodone Hcl 20 Mg Tablet) 20 mg PO DAILY [facility] Last Admin: 01/29/22 09:26 Dose: 20 mg Documented by: Vitamin D (Cholecalciferol (Vitamin D3) 10 Mcg Tablet) 20 mcg PO DAILY [facility] Last Admin: 01/29/22 09:26 Dose: 20 mcg Documented by: Allergies Allergies Allergy/AdvReac Type Severity Reaction Status Date / Time fentanyl [FENTANYL] Allergy Intermediate unknown Verified 05/22/21 11:43 Assessment & Plan Assessment & Plan (1) Major depressive disorder, recurrent severe without psychotic features: Status: Acute Code(s): F33.2 - Major depressive disorder, recurrent severe without psychotic features Assessment and Plan: cont nortrip seroquel encourage alt perspective physical rehab patient working at changing perspective trying to look at things in a more neutral way and to be less harsh in judgment discharge planning (2) Cognitive and neurobehavioral dysfunction following brain injury: Status: Acute Code(s): G31.89 - Other specified degenerative diseases of nervous system; F09 - Unspecified mental disorder due to known physiological condition; S06.9X9S - Unspecified intracranial injury with loss of consciousness of unspecified duration, sequela (3) HTN (hypertension): Status: Acute Code(s): I10 - Essential (primary) hypertension I spent minutes with the patient and/or on the patient floor today, greater than?50% of which was spent counseling/coordinating care. Reason for contiued inpatient stay Substantial Risk for: inability to function and rapid decompensation
[2022-01-30] MEDS: hydrOXYzine HCL 25 MG TABLET PO (02:59)
[2022-01-30 07:50] VITALS: BP 134/83; PULSE 80; RESP 18; TEMP 36.4; O2SAT 95
[2022-01-30] MEDS: amLODIPine Besylate 5 MG TABLET PO (08:50)
[2022-01-30] MEDS: Pramipexole Di-HCL 0.125 MG TABLET PO ×3 (08:50→20:43)
[2022-01-30] MEDS: Cholecalciferol (Vitamin D3) 10 MCG TABLET 20 MCG PO (08:50)
[2022-01-30] MEDS: Multivitamin TABLET 1 TAB PO (08:50)
[2022-01-30] MEDS: Vilazodone HCL 20 MG TABLET PO (08:50)
[2022-01-30] MEDS: Finasteride 5 MG TABLET PO (08:50)
[2022-01-30] MEDS: Gabapentin 400 MG CAPSULE PO ×3 (08:50→20:42)
[2022-01-30] MEDS: lamoTRIgine 25 MG TABLET 150 MG PO ×2 (08:50→20:43)
[2022-01-30] MEDS: QUEtiapine Fumarate 25 MG TABLET PO (08:50)
[2022-01-30] MEDS: lisinopriL 20 MG TABLET PO (08:50)
[2022-01-30 10:37] VITALS: BP 134/83; PULSE 80; O2SAT 95
[2022-01-30] MEDS: Docusate Sodium 100 MG CAPSULE PO ×2 (11:34→20:52)
[2022-01-30] MEDS: LORazepam 0.5 MG TABLET PO ×2 (11:34→20:42)
[2022-01-30] MEDS: Acetaminophen 325 MG TABLET 650 MG PO (11:34)
[2022-01-30] MEDS: QUEtiapine Fumarate 50 MG TABLET PO ×2 (14:34→20:42)
[2022-01-30] MEDS: polyethylene glycoL 3350 17 GM POWD.PACK PO (14:36)
[2022-01-30 19:35] VITALS: BP 147/71; PULSE 78; RESP 18; TEMP 36.1; O2SAT 99
[2022-01-30] MEDS: Ibuprofen 400 MG TABLET PO (20:03)
[2022-01-30] MEDS: Latanoprost 0.005 % Ophth Sol 2.5 ML DROPS 1 DROP EYE-BOTH (20:38)
[2022-01-30] MEDS: Melatonin 3 MG TABLET 6 MG PO (20:39)
[2022-01-30] MEDS: Nystatin Cream 15 GM TUBE 1 APPL TOPICAL (20:39)
[2022-01-30] MEDS: Hydrocortisone 1 % Cream 28.35 GM TUBE 1 APPL TOPICAL (20:39)
[2022-01-30] MEDS: Nortriptyline HCl 25 MG CAPSULE 100 MG PO (20:40)
[2022-01-30] MEDS: traZODone HCL 100 MG TABLET 250 MG PO (20:40)
--- NOTE | 2022-01-30 22:26 | P.PNPSI_ITS ---
Subjective Subjective Date of Service: 01/30/22 Reason For Visit: depression Subjective Notes: Conditional Voluntary Interim History: pt depressed anxiety worried re future was accepted at [facility] Medication Compliance: Yes Attending Groups: Intermittent Review of Systems Medical Review of Systems: unchanged Mental Status Exam Mental Status Exam Patient Appearance: Appropriate Patient Orientation: Person, Place, Time and Situation Level of Consciousness: Awake Patient Behavior: Appropriate Mood Description: Constricted, Flat and Apprehensive Affect Description: Appropriate and Apprehensive Patient Cognition Impaired: No Ability to Follow Directions: Good Speech Pattern: Clear Memory Description: Intact Hallucinations: None Delusions: Not Present Thought Process: Rumination Thought Content: positive for Obsessional Thoughts and positive for Suicidal Id eation (no active thoughts ) Depressive Symptoms: Increased Anxiety, Low Self Esteem and Difficulty Concentrating Diagnostics Vital Signs (24Hr): Vital Signs - 24 hr 01/30/22 07:50 01/30/22 10:37 Temperature 97.6 F Pulse Rate 80 80 Respiratory Rate 18 Blood Pressure 134/83 134/83 Pulse Oximetry 95 95 BMI result Body Mass Index 30.5 Labs Results: 01/19/22 09:00 01/19/22 09:00 Imaging Radiology Impressions: ITS Impressions Hip X-Ray 01/05/22 16:00 IMPRESSION: Healed old fracture right femoral neck. The femoral neck screws that had been present in 2010 has been removed. No acute finding. Medications Medications Current Medications Acetaminophen (Acetaminophen 325 Mg Tablet) 650 mg PO Q6H PRN PRN Reason: Pain (Scale Score 1-3) Last Admin: 01/30/22 11:34 Dose: 650 mg Documented by: Al Hydroxide/Mg Hydroxide (Magnesium Hydrox/Alum Hydrox 30 Ml Oral.Susp) 30 ml PO Q6H PRN PRN Reason: Heartburn/Nausea Last Admin: 12/16/21 14:54 Dose: 30 ml Documented by: Albuterol Sulfate (Albuterol Sulfate 90 Mcg 8 Gm Inhaler) 2 puff INHALE Q6H PRN PRN Reason: Shortness Of Breath Last Admin: 12/24/21 21:33 Dose: 2 puff Documented by: Amlodipine Besylate (Amlodipine Besylate 5 Mg Tablet) 5 mg PO DAILY [facility]; Protocol Last Admin: 01/30/22 08:50 Dose: 5 mg Documented by: Artificial Tears (Artificial Tears 15 Ml Drops) 1 drop EYE-BOTH Q1H PRN PRN Reason: Dry Eye(S) Atenolol (Atenolol 25 Mg Tablet) 25 mg PO DAILY [facility]; Protocol Last Admin: 01/18/22 09:33 Dose: 25 mg Documented by: Docusate Sodium (Docusate Sodium 100 Mg Capsule) 100 mg PO BID PRN PRN Reason: Constipation Last Admin: 01/30/22 20:52 Dose: 100 mg Documented by: Finasteride (Finasteride 5 Mg Tablet) 5 mg PO DAILY [facility] Last Admin: 01/30/22 08:50 Dose: 5 mg Documented by: Gabapentin (Gabapentin 400 Mg Capsule) 400 mg PO TID [facility] Last Admin: 01/30/22 20:42 Dose: 400 mg Documented by: Hydrocortisone (Hydrocortisone 1 % Cream 28.35 Gm Tube) 1 appl TOPICAL BID [facility]; Protocol Last Admin: 01/30/22 20:39 Dose: 1 appl Documented by: Hydroxyzine HCl (Hydroxyzine Hcl 25 Mg Tablet) 25 mg PO BEDTIME PRN PRN Reason: Anxiety Last Admin: 01/30/22 02:59 Dose: 25 mg Documented by: Ibuprofen (Ibuprofen 400 Mg Tablet) 400 mg PO Q6H PRN PRN Reason: Pain, Moderate (Pain Scale 4-6 Last Admin: 01/30/22 20:03 Dose: 400 mg Documented by: Lamotrigine (Lamotrigine 100 Mg Tablet) 200 mg PO BID [facility] Latanoprost (Latanoprost 0.005 % Ophth No 2.5 Ml Drops) 1 drop EYE-BOTH BEDTIME [facility] Last Admin: 01/30/22 20:38 Dose: 1 drop Documented by: Lidocaine (Lidocaine 4 % Patch Adh..Patch) 1 patch TRANSDERMA DAILY [facility]; Protocol Last Admin: 01/30/22 08:51 Dose: Not Given Documented by: Lisinopril (Lisinopril 20 Mg Tablet) 20 mg PO DAILY [facility]; Protocol Last Admin: 01/30/22 08:50 Dose: 20 mg Documented by: Lorazepam (Lorazepam 0.5 Mg Tablet) 0.5 mg PO Q4H PRN PRN Reason: Anxiety Last Admin: 01/30/22 20:42 Dose: 0.5 mg Documented by: Magnesium Hydroxide (Milk Of Magnesia 30 Ml Oral.Susp) 30 ml PO Q72H PRN PRN Reason: Constipation Last Admin: 12/12/21 10:20 Dose: 30 ml Documented by: Magnesium Hydroxide (Milk Of Magnesia 30 Ml Oral.Susp) 30 ml PO DAILY PRN PRN Reason: Constipation Melatonin (Melatonin 3 Mg Tablet) 6 mg PO BEDTIME [facility] Last Admin: 01/30/22 20:39 Dose: 6 mg Documented by: Multivitamins/Vitamin C (Multivitamin Tablet) 1 tab PO DAILY [facility] Last Admin: 01/30/22 08:50 Dose: 1 tab Documented by: Nortriptyline HCl (Nortriptyline Hcl 25 Mg Capsule) 100 mg PO BEDTIME [facility] Last Admin: 01/30/22 20:40 Dose: 100 mg Documented by: Nystatin (Nystatin Cream 15 Gm Tube) 1 appl TOPICAL BID [facility]; Protocol Last Admin: 01/30/22 20:39 Dose: 1 appl Documented by: Ondansetron HCl (Ondansetron Odt 4 Mg Tab.Rapdis) 4 mg TRANSLINGU Q8H PRN PRN Reason: Nausea and Vomiting Last Admin: 01/19/22 01:23 Dose: 4 mg Documented by: Polyethylene Glycol (Polyethylene Glycol 3350 17 Gm Powd.Pack) 17 gm PO DAILY PRN PRN Reason: Constipation Last Admin: 12/22/21 21:39 Dose: 17 gm Documented by: Polyethylene Glycol (Polyethylene Glycol 3350 17 Gm Powd.Pack) 17 gm PO DAILY@1600 [facility] Last Admin: 01/30/22 14:36 Dose: 17 gm Documented by: Pramipexole Dihydrochloride (Pramipexole Di-Hcl 0.125 Mg Tablet) 0.125 mg PO TID [facility] Last Admin: 01/30/22 20:43 Dose: 0.125 mg Documented by: Psyllium Hydrophilic Mucilloid (Psyllium Seed 3.4 Gm Powd.Pack) 3.4 gm PO DAILY [facility] Last Admin: 01/30/22 08:49 Dose: 3.4 gm Documented by: Quetiapine Fumarate (Quetiapine Fumarate 25 Mg Tablet) 25 mg PO BID PRN PRN Reason: Anxiety Last Admin: 01/27/22 11:43 Dose: 25 mg Documented by: Quetiapine Fumarate (Quetiapine Fumarate 50 Mg Tablet) 50 mg PO DAILY@1300 [facility] Last Admin: 01/30/22 14:34 Dose: 50 mg Documented by: Quetiapine Fumarate (Quetiapine Fumarate 25 Mg Tablet) 25 mg PO DAILY [facility] Last Admin: 01/30/22 08:50 Dose: 25 mg Documented by: Quetiapine Fumarate (Quetiapine Fumarate 25 Mg Tablet) 75 mg PO BEDTIME [facility] Trazodone HCl (Trazodone Hcl 50 Mg Tablet) 50 mg PO BEDTIME PRN PRN Reason: Insomnia Last Admin: 01/21/22 01:18 Dose: 50 mg Documented by: Trazodone HCl (Trazodone Hcl 100 Mg Tablet) 250 mg PO BEDTIME [facility] Last Admin: 01/30/22 20:40 Dose: 250 mg Documented by: Vilazodone HCl (Vilazodone Hcl 20 Mg Tablet) 20 mg PO DAILY [facility] Last Admin: 01/30/22 08:50 Dose: 20 mg Documented by: Vitamin D (Cholecalciferol (Vitamin D3) 10 Mcg Tablet) 20 mcg PO DAILY [facility] Last Admin: 01/30/22 08:50 Dose: 20 mcg Documented by: Allergies Allergies Allergy/AdvReac Type Severity Reaction Status Date / Time fentanyl [FENTANYL] Allergy Intermediate unknown Verified 05/22/21 11:43 Assessment & Plan Assessment & Plan (1) Major depressive disorder, recurrent severe without psychotic features: Status: Acute Code(s): F33.2 - Major depressive disorder, recurrent severe without psychotic features (2) Cognitive and neurobehavioral dysfunction following brain injury: Status: Acute Code(s): G31.89 - Other specified degenerative diseases of nervous system; F09 - Unspecified mental disorder due to known physiological condition; S06.9X9S - Unspecified intracranial injury with loss of consciousness of unspecified duration, sequela (3) HTN (hypertension): Status: Acute Code(s): I10 - Essential (primary) hypertension Plan inc seroquel inc lamictal needs encouragement rehab setting I spent ___30___ minutes with the patient and/or on the patient floor today, greater than?50% of which was spent counseling/coordinating care. Patient educated on: therapeutic strategies and medical condition Informed Consent: understands Reason for contiued inpatient stay Substantial Risk for: inability to function, rapid decompensation and med/psych decompensation
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
[2022-01-31 07:40] VITALS: BP 150/77; PULSE 85; RESP 20; TEMP 36.1; O2SAT 95
[2022-01-31] MEDS: lamoTRIgine 100 MG TABLET 200 MG PO ×2 (09:58→21:42)
[2022-01-31] MEDS: QUEtiapine Fumarate 25 MG TABLET PO ×2 (09:58→21:45)
[2022-01-31] MEDS: Pramipexole Di-HCL 0.125 MG TABLET PO ×3 (09:59→21:45)
[2022-01-31] MEDS: Cholecalciferol (Vitamin D3) 10 MCG TABLET 20 MCG PO (09:59)
[2022-01-31] MEDS: lisinopriL 20 MG TABLET PO (09:59)
[2022-01-31] MEDS: Gabapentin 400 MG CAPSULE PO ×3 (09:59→21:42)
[2022-01-31] MEDS: amLODIPine Besylate 5 MG TABLET PO (09:59)
[2022-01-31] MEDS: Multivitamin TABLET 1 TAB PO (09:59)
[2022-01-31] MEDS: Vilazodone HCL 20 MG TABLET PO (09:59)
[2022-01-31] MEDS: Finasteride 5 MG TABLET PO (09:59)
[2022-01-31] MEDS: Docusate Sodium 100 MG CAPSULE PO (10:14)
[2022-01-31 10:52] VITALS: BP 150/77; PULSE 85; O2SAT 95
[2022-01-31] MEDS: QUEtiapine Fumarate 50 MG TABLET PO (13:16)
[2022-01-31] MEDS: polyethylene glycoL 3350 17 GM POWD.PACK PO (16:51)
[2022-01-31] MEDS: Acetaminophen 325 MG TABLET 650 MG PO (17:40)
[2022-01-31] MEDS: LORazepam 0.5 MG TABLET PO ×2 (17:43→21:41)
[2022-01-31 18:00] VITALS: BP 165/74; PULSE 74; RESP 16; TEMP 36.2; O2SAT 97
[2022-01-31] MEDS: Nortriptyline HCl 25 MG CAPSULE 100 MG PO (21:40)
[2022-01-31] MEDS: traZODone HCL 100 MG TABLET 250 MG PO (21:43)
[2022-01-31] MEDS: Melatonin 3 MG TABLET 6 MG PO (21:44)
[2022-01-31] MEDS: Latanoprost 0.005 % Ophth Sol 2.5 ML DROPS 1 DROP EYE-BOTH (21:48)
[2022-01-31] MEDS: Hydrocortisone 1 % Cream 28.35 GM TUBE 1 APPL TOPICAL (21:49)
[2022-01-31] MEDS: Nystatin Cream 15 GM TUBE 1 APPL TOPICAL (21:50)
--- NOTE | 2022-01-31 22:00 | P.PNPSI_ITS ---
Subjective Subjective Date of Service: 01/31/22 Reason For Visit: depression Subjective Notes: Conditional Voluntary Healthcare Proxy: No Guardianship: No Interim History: The patient is ruminating regarding the past at times reminded of his brother who is suffering from dementia remember and triggered by others On the unit patient future oriented Medication Compliance: Yes Mental Status Exam Mental Status Exam Patient Appearance: Appropriate Patient Orientation: Person, Place, Time and Situation Level of Consciousness: Awake Patient Behavior: Appropriate Mood Description: Constricted, Flat and Apprehensive Affect Description: Appropriate and Apprehensive Patient Cognition Impaired: No Ability to Follow Directions: Good Speech Pattern: Clear Memory Description: Intact Hallucinations: None Delusions: Not Present Thought Process: Rumination Thought Content: positive for Obsessional Thoughts and positive for Suicidal Ideation (no active thoughts ) Depressive Symptoms: Increased Anxiety, Low Self Esteem and Difficulty Concentrating Diagnostics Vital Signs (24Hr): Vital Signs - 24 hr 01/31/22 07:40 01/31/22 10:52 01/31/22 18:00 Temperature 97.0 F 97.2 F Pulse Rate 85 85 74 Respiratory Rate 20 16 Blood Pressure 150/77 H 150/77 H 165/74 H Pulse Oximetry 95 95 97 BMI result Body Mass Index 30.5 Labs Results: 01/19/22 09:00 01/19/22 09:00 Imaging Radiology Impressions: ITS Impressions Hip X-Ray 01/05/22 16:00 IMPRESSION: Healed old fracture right femoral neck. The femoral neck screws that had been present in 2010 has been removed. No acute finding. Medications Medications Current Medications Acetaminophen (Acetaminophen 325 Mg Tablet) 650 mg PO Q6H PRN PRN Reason: Pain (Scale Score 1-3) Last Admin: 01/31/22 17:40 Dose: 650 mg Documented by: Al Hydroxide/Mg Hydroxide (Magnesium Hydrox/Alum Hydrox 30 Ml Oral.Susp) 30 ml PO Q6H PRN PRN Reason: Heartburn/Nausea Last Admin: 12/16/21 14:54 Dose: 30 ml Documented by: Albuterol Sulfate (Albuterol Sulfate 90 Mcg 8 Gm Inhaler) 2 puff INHALE Q6H PRN PRN Reason: Shortness Of Breath Last Admin: 12/24/21 21:33 Dose: 2 puff Documented by: Amlodipine Besylate (Amlodipine Besylate 5 Mg Tablet) 5 mg PO DAILY [facility]; Protocol Last Admin: 01/31/22 09:59 Dose: 5 mg Documented by: Artificial Tears (Artificial Tears 15 Ml Drops) 1 drop EYE-BOTH Q1H PRN PRN Reason: Dry Eye(S) Atenolol (Atenolol 25 Mg Tablet) 25 mg PO DAILY [facility]; Protocol Last Admin: 01/18/22 09:33 Dose: 25 mg Documented by: Docusate Sodium (Docusate Sodium 100 Mg Capsule) 100 mg PO BID PRN PRN Reason: Constipation Last Admin: 01/31/22 10:14 Dose: 100 mg Documented by: Finasteride (Finasteride 5 Mg Tablet) 5 mg PO DAILY [facility] Last Admin: 01/31/22 09:59 Dose: 5 mg Documented by: Gabapentin (Gabapentin 400 Mg Capsule) 400 mg PO TID [facility] Last Admin: 01/31/22 21:42 Dose: 400 mg Documented by: Hydrocortisone (Hydrocortisone 1 % Cream 28.35 Gm Tube) 1 appl TOPICAL BID [facility]; Protocol Last Admin: 01/31/22 09:59 Dose: Not Given Documented by: Hydroxyzine HCl (Hydroxyzine Hcl 25 Mg Tablet) 25 mg PO BEDTIME PRN PRN Reason: Anxiety Last Admin: 01/30/22 02:59 Dose: 25 mg Documented by: Ibuprofen (Ibuprofen 400 Mg Tablet) 400 mg PO Q6H PRN PRN Reason: Pain, Moderate (Pain Scale 4-6 Last Admin: 01/30/22 20:03 Dose: 400 mg Documented by: Lamotrigine (Lamotrigine 100 Mg Tablet) 200 mg PO BID [facility] Last Admin: 01/31/22 21:42 Dose: 200 mg Documented by: Latanoprost (Latanoprost 0.005 % Ophth No 2.5 Ml Drops) 1 drop EYE-BOTH BEDTIME [facility] Last Admin: 01/30/22 20:38 Dose: 1 drop Documented by: Lidocaine (Lidocaine 4 % Patch Adh..Patch) 1 patch TRANSDERMA DAILY [facility]; Protocol Last Admin: 01/31/22 10:00 Dose: Not Given Documented by: Lisinopril (Lisinopril 20 Mg Tablet) 20 mg PO DAILY [facility]; Protocol Last Admin: 01/31/22 09:59 Dose: 20 mg Documented by: Lorazepam (Lorazepam 0.5 Mg Tablet) 0.5 mg PO Q4H PRN PRN Reason: Anxiety Last Admin: 01/31/22 21:41 Dose: 0.5 mg Documented by: Magnesium Hydroxide (Milk Of Magnesia 30 Ml Oral.Susp) 30 ml PO Q72H PRN PRN Reason: Constipation Last Admin: 12/12/21 10:20 Dose: 30 ml Documented by: Magnesium Hydroxide (Milk Of Magnesia 30 Ml Oral.Susp) 30 ml PO DAILY PRN PRN Reason: Constipation Melatonin (Melatonin 3 Mg Tablet) 6 mg PO BEDTIME [facility] Last Admin: 01/31/22 21:44 Dose: 6 mg Documented by: Multivitamins/Vitamin C (Multivitamin Tablet) 1 tab PO DAILY [facility] Last Admin: 01/31/22 09:59 Dose: 1 tab Documented by: Nortriptyline HCl (Nortriptyline Hcl 25 Mg Capsule) 100 mg PO BEDTIME [facility] Last Admin: 01/31/22 21:40 Dose: 100 mg Documented by: Nystatin (Nystatin Cream 15 Gm Tube) 1 appl TOPICAL BID [facility]; Protocol Last Admin: 01/31/22 10:00 Dose: Not Given Documented by: Ondansetron HCl (Ondansetron Odt 4 Mg Tab.Rapdis) 4 mg TRANSLINGU Q8H PRN PRN Reason: Nausea and Vomiting Last Admin: 01/19/22 01:23 Dose: 4 mg Documented by: Polyethylene Glycol (Polyethylene Glycol 3350 17 Gm Powd.Pack) 17 gm PO DAILY PRN PRN Reason: Constipation Last Admin: 12/22/21 21:39 Dose: 17 gm Documented by: Polyethylene Glycol (Polyethylene Glycol 3350 17 Gm Powd.Pack) 17 gm PO DAILY@1600 [facility] Last Admin: 01/31/22 16:51 Dose: 17 gm Documented by: Pramipexole Dihydrochloride (Pramipexole Di-Hcl 0.125 Mg Tablet) 0.125 mg PO TID [facility] Last Admin: 01/31/22 21:45 Dose: 0.125 mg Documented by: Psyllium Hydrophilic Mucilloid (Psyllium Seed 3.4 Gm Powd.Pack) 3.4 gm PO DAILY [facility] Last Admin: 01/31/22 09:59 Dose: 3.4 gm Documented by: Quetiapine Fumarate (Quetiapine Fumarate 25 Mg Tablet) 25 mg PO BID PRN PRN Reason: Anxiety Last Admin: 01/27/22 11:43 Dose: 25 mg Documented by: Quetiapine Fumarate (Quetiapine Fumarate 50 Mg Tablet) 50 mg PO DAILY@1300 [facility] Last Admin: 01/31/22 13:16 Dose: 50 mg Documented by: Quetiapine Fumarate (Quetiapine Fumarate 25 Mg Tablet) 25 mg PO DAILY [facility] Last Admin: 01/31/22 21:45 Dose: 25 mg Documented by: Quetiapine Fumarate (Quetiapine Fumarate 25 Mg Tablet) 75 mg PO BEDTIME [facility] Trazodone HCl (Trazodone Hcl 50 Mg Tablet) 50 mg PO BEDTIME PRN PRN Reason: Insomnia Last Admin: 01/21/22 01:18 Dose: 50 mg Documented by: Trazodone HCl (Trazodone Hcl 100 Mg Tablet) 250 mg PO BEDTIME [facility] Last Admin: 01/31/22 21:43 Dose: 250 mg Documented by: Vilazodone HCl (Vilazodone Hcl 20 Mg Tablet) 20 mg PO DAILY [facility] Last Admin: 01/31/22 09:59 Dose: 20 mg Documented by: Vitamin D (Cholecalciferol (Vitamin D3) 10 Mcg Tablet) 20 mcg PO DAILY [facility] Last Admin: 01/31/22 09:59 Dose: 20 mcg Documented by: Allergies Allergies Allergy/AdvReac Type Severity Reaction Status Date / Time fentanyl [FENTANYL] Allergy Intermediate unknown Verified 05/22/21 11:43 Assessment & Plan Assessment & Plan (1) Major depressive disorder, recurrent severe without psychotic features: Status: Acute Code(s): F33.2 - Major depressive disorder, recurrent severe without psychotic features Assessment and Plan: Continue doxepin Seroquel recently increased Lamictal to 200 b.i.d. CBT skills reviewed Increase Seroquel as needed continue physical therapy patient referred to [facility] (2) Cognitive and neurobehavioral dysfunction following brain injury: Status: Acute Code(s): G31.89 - Other specified degenerative diseases of nervous system; F09 - Unspecified mental disorder due to known physiological condition; S06.9X9S - Unspecified intracranial injury with loss of consciousness of unspecified duration, sequela (3) HTN (hypertension): Status: Acute Code(s): I10 - Essential (primary) hypertension Plan inc seroquel inc lamictal needs encouragement rehab setting I spent minutes with the patient and/or on the patient floor today, greater than?50% of which was spent counseling/coordinating care. Reason for contiued inpatient stay Substantial Risk for: inability to function and rapid decompensation
[2022-01-31] MEDS: QUEtiapine Fumarate 25 MG TABLET 75 MG PO (23:58)
[2022-02-01 04:17] VITALS: BP 146/71; PULSE 66; RESP 16; O2SAT 97
[2022-02-01 08:30] VITALS: BP 152/90; PULSE 81; TEMP 36.4; O2SAT 96
[2022-02-01] MEDS: Multivitamin TABLET 1 TAB PO (09:40)
[2022-02-01] MEDS: Finasteride 5 MG TABLET PO (09:40)
[2022-02-01] MEDS: Acetaminophen 325 MG TABLET 650 MG PO ×2 (09:40→20:10)
[2022-02-01] MEDS: Vilazodone HCL 20 MG TABLET PO (09:40)
[2022-02-01] MEDS: lamoTRIgine 100 MG TABLET 200 MG PO ×2 (09:40→20:12)
[2022-02-01] MEDS: Cholecalciferol (Vitamin D3) 10 MCG TABLET 20 MCG PO (09:40)
[2022-02-01] MEDS: lisinopriL 20 MG TABLET PO (09:41)
[2022-02-01] MEDS: Gabapentin 400 MG CAPSULE PO ×3 (09:41→20:11)
[2022-02-01] MEDS: amLODIPine Besylate 5 MG TABLET PO (09:41)
[2022-02-01] MEDS: Pramipexole Di-HCL 0.125 MG TABLET PO ×3 (09:42→20:14)
--- NOTE | 2022-02-01 10:09 | HO.PSYCHPN ---
Subjective Subjective Date of Service: 02/01/22 Reason For Visit: depression Subjective Notes: Conditional Voluntary Interim History: The nursing staff reported that his her blood pressure was slightly high in the evening. He denies suicidal ideation he is worried about his discharge next Thursday to group home facility. On interview, the patient denies new symptoms besides the report of increase BP and he is very anxious and dysphoric but safe. We will follow closely if we need to adjust Metoprolol. Mental Status Exam Mental Status Exam Patient Appearance: Well Grooomed Patient Orientation: Person, Place, Time and Situation Level of Consciousness: Appropriate Patient Behavior: Cooperative Mood Description: Calm Affect Description: Constricted Ability to Follow Directions: Good Speech Pattern: Clear Memory Description: Intact Hallucinations: None Thought Process: Linear Thought Content: positive for Circumstantial Judgement: Fair Diagnostics Vital Signs (24Hr): Vital Signs - 24 hr 01/31/22 10:52 01/31/22 18:00 02/01/22 04:17 Temperature 97.2 F Pulse Rate 85 74 66 Respiratory Rate 16 16 Blood Pressure 150/77 H 165/74 H 146/71 H Pulse Oximetry 95 97 97 BMI result Body Mass Index 30.5 Labs Results: 01/19/22 09:00 01/19/22 09:00 Imaging Radiology Impressions: ITS Impressions Hip X-Ray 01/05/22 16:00 IMPRESSION: Healed old fracture right femoral neck. The femoral neck screws that had been present in 2010 has been removed. No acute finding. Medications Medications Current Medications Acetaminophen (Acetaminophen 325 Mg Tablet) 650 mg PO Q6H PRN PRN Reason: Pain (Scale Score 1-3) Last Admin: 02/01/22 09:40 Dose: 650 mg Documented by: Al Hydroxide/Mg Hydroxide (Magnesium Hydrox/Alum Hydrox 30 Ml Oral.Susp) 30 ml PO Q6H PRN PRN Reason: Heartburn/Nausea Last Admin: 12/16/21 14:54 Dose: 30 ml Documented by: Albuterol Sulfate (Albuterol Sulfate 90 Mcg 8 Gm Inhaler) 2 puff INHALE Q6H PRN PRN Reason: Shortness Of Breath Last Admin: 12/24/21 21:33 Dose: 2 puff Documented by: Amlodipine Besylate (Amlodipine Besylate 5 Mg Tablet) 5 mg PO DAILY [facility]; Protocol Last Admin: 02/01/22 09:41 Dose: 5 mg Documented by: Artificial Tears (Artificial Tears 15 Ml Drops) 1 drop EYE-BOTH Q1H PRN PRN Reason: Dry Eye(S) Atenolol (Atenolol 25 Mg Tablet) 25 mg PO DAILY [facility]; Protocol Last Admin: 01/18/22 09:33 Dose: 25 mg Documented by: Docusate Sodium (Docusate Sodium 100 Mg Capsule) 100 mg PO BID PRN PRN Reason: Constipation Last Admin: 01/31/22 10:14 Dose: 100 mg Documented by: Finasteride (Finasteride 5 Mg Tablet) 5 mg PO DAILY [facility] Last Admin: 02/01/22 09:40 Dose: 5 mg Documented by: Gabapentin (Gabapentin 400 Mg Capsule) 400 mg PO TID [facility] Last Admin: 02/01/22 09:41 Dose: 400 mg Documented by: Hydrocortisone (Hydrocortisone 1 % Cream 28.35 Gm Tube) 1 appl TOPICAL BID [facility]; Protocol Last Admin: 02/01/22 09:41 Dose: Not Given Documented by: Hydroxyzine HCl (Hydroxyzine Hcl 25 Mg Tablet) 25 mg PO BEDTIME PRN PRN Reason: Anxiety Last Admin: 01/30/22 02:59 Dose: 25 mg Documented by: Ibuprofen (Ibuprofen 400 Mg Tablet) 400 mg PO Q6H PRN PRN Reason: Pain, Moderate (Pain Scale 4-6 Last Admin: 01/30/22 20:03 Dose: 400 mg Documented by: Lamotrigine (Lamotrigine 100 Mg Tablet) 200 mg PO BID [facility] Last Admin: 02/01/22 09:40 Dose: 200 mg Documented by: Latanoprost (Latanoprost 0.005 % Ophth No 2.5 Ml Drops) 1 drop EYE-BOTH BEDTIME [facility] Last Admin: 01/31/22 21:48 Dose: 1 drop Documented by: Lidocaine (Lidocaine 4 % Patch Adh..Patch) 1 patch TRANSDERMA DAILY [facility]; Protocol Last Admin: 02/01/22 09:41 Dose: Not Given Documented by: Lisinopril (Lisinopril 20 Mg Tablet) 20 mg PO DAILY [facility]; Protocol Last Admin: 02/01/22 09:41 Dose: 20 mg Documented by: Lorazepam (Lorazepam 0.5 Mg Tablet) 0.5 mg PO Q4H PRN PRN Reason: Anxiety Last Admin: 01/31/22 21:41 Dose: 0.5 mg Documented by: Magnesium Hydroxide (Milk Of Magnesia 30 Ml Oral.Susp) 30 ml PO Q72H PRN PRN Reason: Constipation Last Admin: 12/12/21 10:20 Dose: 30 ml Documented by: Magnesium Hydroxide (Milk Of Magnesia 30 Ml Oral.Susp) 30 ml PO DAILY PRN PRN Reason: Constipation Melatonin (Melatonin 3 Mg Tablet) 6 mg PO BEDTIME [facility] Last Admin: 01/31/22 21:44 Dose: 6 mg Documented by: Multivitamins/Vitamin C (Multivitamin Tablet) 1 tab PO DAILY [facility] Last Admin: 02/01/22 09:40 Dose: 1 tab Documented by: Nortriptyline HCl (Nortriptyline Hcl 25 Mg Capsule) 100 mg PO BEDTIME [facility] Last Admin: 01/31/22 21:40 Dose: 100 mg Documented by: Nystatin (Nystatin Cream 15 Gm Tube) 1 appl TOPICAL BID [facility]; Protocol Last Admin: 02/01/22 09:42 Dose: Not Given Documented by: Ondansetron HCl (Ondansetron Odt 4 Mg Tab.Rapdis) 4 mg TRANSLINGU Q8H PRN PRN Reason: Nausea and Vomiting Last Admin: 01/19/22 01:23 Dose: 4 mg Documented by: Polyethylene Glycol (Polyethylene Glycol 3350 17 Gm Powd.Pack) 17 gm PO DAILY PRN PRN Reason: Constipation Last Admin: 12/22/21 21:39 Dose: 17 gm Documented by: Polyethylene Glycol (Polyethylene Glycol 3350 17 Gm Powd.Pack) 17 gm PO DAILY@1600 [facility] Last Admin: 01/31/22 16:51 Dose: 17 gm Documented by: Pramipexole Dihydrochloride (Pramipexole Di-Hcl 0.125 Mg Tablet) 0.125 mg PO TID [facility] Last Admin: 02/01/22 09:42 Dose: 0.125 mg Documented by: Psyllium Hydrophilic Mucilloid (Psyllium Seed 3.4 Gm Powd.Pack) 3.4 gm PO DAILY [facility] Last Admin: 02/01/22 09:40 Dose: 3.4 gm Documented by: Quetiapine Fumarate (Quetiapine Fumarate 25 Mg Tablet) 25 mg PO BID PRN PRN Reason: Anxiety Last Admin: 01/27/22 11:43 Dose: 25 mg Documented by: Quetiapine Fumarate (Quetiapine Fumarate 50 Mg Tablet) 50 mg PO DAILY@1300 [facility] Last Admin: 01/31/22 13:16 Dose: 50 mg Documented by: Quetiapine Fumarate (Quetiapine Fumarate 25 Mg Tablet) 25 mg PO DAILY [facility] Last Admin: 01/31/22 21:45 Dose: 25 mg Documented by: Quetiapine Fumarate (Quetiapine Fumarate 25 Mg Tablet) 75 mg PO BEDTIME [facility] Last Admin: 01/31/22 23:58 Dose: 75 mg Documented by: Trazodone HCl (Trazodone Hcl 50 Mg Tablet) 50 mg PO BEDTIME PRN PRN Reason: Insomnia Last Admin: 01/21/22 01:18 Dose: 50 mg Documented by: Trazodone HCl (Trazodone Hcl 100 Mg Tablet) 250 mg PO BEDTIME [facility] Last Admin: 01/31/22 21:43 Dose: 250 mg Documented by: Vilazodone HCl (Vilazodone Hcl 20 Mg Tablet) 20 mg PO DAILY [facility] Last Admin: 02/01/22 09:40 Dose: 20 mg Documented by: Vitamin D (Cholecalciferol (Vitamin D3) 10 Mcg Tablet) 20 mcg PO DAILY [facility] Last Admin: 02/01/22 09:40 Dose: 20 mcg Documented by: Allergies Allergies Allergy/AdvReac Type Severity Reaction Status Date / Time fentanyl [FENTANYL] Allergy Intermediate unknown Verified 05/22/21 11:43 Assessment & Plan Assessment & Plan (1) Major depressive disorder, recurrent severe without psychotic features: Status: Acute Code(s): F33.2 - Major depressive disorder, recurrent severe without psychotic features Assessment and Plan: Continue doxepin Seroquel recently increased Lamictal to 200 b.i.d. CBT skills reviewed Increase Seroquel as needed continue physical therapy patient referred to [facility] (2) Cognitive and neurobehavioral dysfunction following brain injury: Status: Acute Code(s): G31.89 - Other specified degenerative diseases of nervous system; F09 - Unspecified mental disorder due to known physiological condition; S06.9X9S - Unspecified intracranial injury with loss of consciousness of unspecified duration, sequela (3) HTN (hypertension): Status: Acute Code(s): I10 - Essential (primary) hypertension Plan inc seroquel inc lamictal needs encouragement rehab setting I spent __20____ minutes with the patient and/or on the patient floor today, greater than?50% of which was spent counseling/coordinating care. Reason for contiued inpatient stay Substantial Risk for: inability to function, rapid decompensation and med/psych decompensation
[2022-02-01] MEDS: QUEtiapine Fumarate 50 MG TABLET PO (15:12)
[2022-02-01] MEDS: polyethylene glycoL 3350 17 GM POWD.PACK PO (16:30)
[2022-02-01] MEDS: QUEtiapine Fumarate 25 MG TABLET PO (18:26)
[2022-02-01 20:06] VITALS: BP 124/62; PULSE 75; RESP 16; TEMP 36.4; O2SAT 94
[2022-02-01] MEDS: Docusate Sodium 100 MG CAPSULE PO (20:11)
[2022-02-01] MEDS: traZODone HCL 100 MG TABLET 250 MG PO (20:13)
[2022-02-01] MEDS: QUEtiapine Fumarate 25 MG TABLET 75 MG PO (20:15)
[2022-02-01] MEDS: Melatonin 3 MG TABLET 6 MG PO (20:16)
[2022-02-01] MEDS: LORazepam 0.5 MG TABLET PO (20:16)
[2022-02-01] MEDS: Nortriptyline HCl 25 MG CAPSULE 100 MG PO (20:17)
[2022-02-01] MEDS: Nystatin Cream 15 GM TUBE 1 APPL TOPICAL (20:23)
[2022-02-01] MEDS: Hydrocortisone 1 % Cream 28.35 GM TUBE 1 APPL TOPICAL (20:30)
[2022-02-01] MEDS: Latanoprost 0.005 % Ophth Sol 2.5 ML DROPS 1 DROP EYE-BOTH (20:31)
[2022-02-02 06:00] VITALS: BP 135/86; PULSE 75; TEMP 36.4; O2SAT 95
[2022-02-02] MEDS: QUEtiapine Fumarate 25 MG TABLET PO ×2 (06:18→08:45)
[2022-02-02] MEDS: Ibuprofen 400 MG TABLET PO ×2 (06:18→21:31)
[2022-02-02] MEDS: Acetaminophen 325 MG TABLET 650 MG PO (08:44)
[2022-02-02] MEDS: Vilazodone HCL 20 MG TABLET PO (08:45)
[2022-02-02] MEDS: Gabapentin 400 MG CAPSULE PO ×3 (08:45→21:32)
[2022-02-02] MEDS: lisinopriL 20 MG TABLET PO (08:45)
[2022-02-02] MEDS: amLODIPine Besylate 5 MG TABLET PO (08:45)
[2022-02-02] MEDS: Cholecalciferol (Vitamin D3) 10 MCG TABLET 20 MCG PO (08:45)
[2022-02-02] MEDS: Multivitamin TABLET 1 TAB PO (08:45)
[2022-02-02] MEDS: Docusate Sodium 100 MG CAPSULE PO ×2 (08:45→21:32)
[2022-02-02] MEDS: lamoTRIgine 100 MG TABLET 200 MG PO ×2 (08:45→21:38)
[2022-02-02] MEDS: Finasteride 5 MG TABLET PO (08:45)
[2022-02-02] MEDS: Pramipexole Di-HCL 0.125 MG TABLET PO ×3 (08:45→21:32)
--- NOTE | 2022-02-02 10:45 | P.PNPSI_ITS ---
Subjective Subjective Date of Service: 02/02/22 Reason For Visit: depression Subjective Notes: Conditional Voluntary Interim History: The nursing staff reported that he is irritable with peers and staff, no new symptoms. On interview, he denied new symptoms, reports feeling anxious of moving out to the SNF. Mental Status Exam Mental Status Exam Patient Appearance: Appropriate Patient Orientation: Person Level of Consciousness: Awake Patient Behavior: Cooperative Mood Description: Withdrawn Affect Description: Constricted Ability to Follow Directions: Good Speech Pattern: Clear Hallucinations: None Delusions: Not Present Thought Process: Linear Thought Content: positive for Circumstantial Judgement: Fair Diagnostics Vital Signs (24Hr): Vital Signs - 24 hr 02/01/22 20:06 Temperature 97.6 F Pulse Rate 75 Respiratory Rate 16 Blood Pressure 124/62 Pulse Oximetry 94 BMI result Body Mass Index 30.5 Labs Results: 01/19/22 09:00 01/19/22 09:00 Imaging Radiology Impressions: ITS Impressions Hip X-Ray 01/05/22 16:00 IMPRESSION: Healed old fracture right femoral neck. The femoral neck screws that had been present in 2010 has been removed. No acute finding. Medications Medications Current Medications Acetaminophen (Acetaminophen 325 Mg Tablet) 650 mg PO Q6H PRN PRN Reason: Pain (Scale Score 1-3) Last Admin: 02/02/22 08:44 Dose: 650 mg Documented by: Al Hydroxide/Mg Hydroxide (Magnesium Hydrox/Alum Hydrox 30 Ml Oral.Susp) 30 ml PO Q6H PRN PRN Reason: Heartburn/Nausea Last Admin: 12/16/21 14:54 Dose: 30 ml Documented by: Albuterol Sulfate (Albuterol Sulfate 90 Mcg 8 Gm Inhaler) 2 puff INHALE Q6H PRN PRN Reason: Shortness Of Breath Last Admin: 12/24/21 21:33 Dose: 2 puff Documented by: Amlodipine Besylate (Amlodipine Besylate 5 Mg Tablet) 5 mg PO DAILY [facility]; Protocol Last Admin: 02/02/22 08:45 Dose: 5 mg Documented by: Artificial Tears (Artificial Tears 15 Ml Drops) 1 drop EYE-BOTH Q1H PRN PRN Reason: Dry Eye(S) Atenolol (Atenolol 25 Mg Tablet) 25 mg PO DAILY [facility]; Protocol Last Admin: 01/18/22 09:33 Dose: 25 mg Documented by: Docusate Sodium (Docusate Sodium 100 Mg Capsule) 100 mg PO BID PRN PRN Reason: Constipation Last Admin: 02/02/22 08:45 Dose: 100 mg Documented by: Finasteride (Finasteride 5 Mg Tablet) 5 mg PO DAILY [facility] Last Admin: 02/02/22 08:45 Dose: 5 mg Documented by: Gabapentin (Gabapentin 400 Mg Capsule) 400 mg PO TID [facility] Last Admin: 02/02/22 08:45 Dose: 400 mg Documented by: Hydrocortisone (Hydrocortisone 1 % Cream 28.35 Gm Tube) 1 appl TOPICAL BID [facility]; Protocol Last Admin: 02/02/22 08:46 Dose: Not Given Documented by: Hydroxyzine HCl (Hydroxyzine Hcl 25 Mg Tablet) 25 mg PO BEDTIME PRN PRN Reason: Anxiety Last Admin: 01/30/22 02:59 Dose: 25 mg Documented by: Ibuprofen (Ibuprofen 400 Mg Tablet) 400 mg PO Q6H PRN PRN Reason: Pain, Moderate (Pain Scale 4-6 Last Admin: 02/02/22 06:18 Dose: 400 mg Documented by: Lamotrigine (Lamotrigine 100 Mg Tablet) 200 mg PO BID [facility] Last Admin: 02/02/22 08:45 Dose: 200 mg Documented by: Latanoprost (Latanoprost 0.005 % Ophth No 2.5 Ml Drops) 1 drop EYE-BOTH BEDTIME [facility] Last Admin: 02/01/22 20:31 Dose: 1 drop Documented by: Lidocaine (Lidocaine 4 % Patch Adh..Patch) 1 patch TRANSDERMA DAILY [facility]; Protocol Last Admin: 02/02/22 08:46 Dose: Not Given Documented by: Lisinopril (Lisinopril 20 Mg Tablet) 20 mg PO DAILY [facility]; Protocol Last Admin: 02/02/22 08:45 Dose: 20 mg Documented by: Magnesium Hydroxide (Milk Of Magnesia 30 Ml Oral.Susp) 30 ml PO Q72H PRN PRN Reason: Constipation Last Admin: 12/12/21 10:20 Dose: 30 ml Documented by: Magnesium Hydroxide (Milk Of Magnesia 30 Ml Oral.Susp) 30 ml PO DAILY PRN PRN Reason: Constipation Melatonin (Melatonin 3 Mg Tablet) 6 mg PO BEDTIME [facility] Last Admin: 02/01/22 20:16 Dose: 6 mg Documented by: Multivitamins/Vitamin C (Multivitamin Tablet) 1 tab PO DAILY [facility] Last Admin: 02/02/22 08:45 Dose: 1 tab Documented by: Nortriptyline HCl (Nortriptyline Hcl 25 Mg Capsule) 100 mg PO BEDTIME [facility] Last Admin: 02/01/22 20:17 Dose: 100 mg Documented by: Nystatin (Nystatin Cream 15 Gm Tube) 1 appl TOPICAL BID [facility]; Protocol Last Admin: 02/02/22 08:46 Dose: Not Given Documented by: Ondansetron HCl (Ondansetron Odt 4 Mg Tab.Rapdis) 4 mg TRANSLINGU Q8H PRN PRN Reason: Nausea and Vomiting Last Admin: 01/19/22 01:23 Dose: 4 mg Documented by: Polyethylene Glycol (Polyethylene Glycol 3350 17 Gm Powd.Pack) 17 gm PO DAILY PRN PRN Reason: Constipation Last Admin: 12/22/21 21:39 Dose: 17 gm Documented by: Polyethylene Glycol (Polyethylene Glycol 3350 17 Gm Powd.Pack) 17 gm PO DAILY@1600 [facility] Last Admin: 02/01/22 16:30 Dose: 17 gm Documented by: Pramipexole Dihydrochloride (Pramipexole Di-Hcl 0.125 Mg Tablet) 0.125 mg PO TID [facility] Last Admin: 02/02/22 08:45 Dose: 0.125 mg Documented by: Psyllium Hydrophilic Mucilloid (Psyllium Seed 3.4 Gm Powd.Pack) 3.4 gm PO DAILY [facility] Last Admin: 02/02/22 08:46 Dose: 3.4 gm Documented by: Quetiapine Fumarate (Quetiapine Fumarate 25 Mg Tablet) 25 mg PO BID PRN PRN Reason: Anxiety Last Admin: 02/02/22 06:18 Dose: 25 mg Documented by: Quetiapine Fumarate (Quetiapine Fumarate 50 Mg Tablet) 50 mg PO DAILY@1300 [facility] Last Admin: 02/01/22 15:12 Dose: 50 mg Documented by: Quetiapine Fumarate (Quetiapine Fumarate 25 Mg Tablet) 25 mg PO DAILY [facility] Last Admin: 02/02/22 08:45 Dose: 25 mg Documented by: Quetiapine Fumarate (Quetiapine Fumarate 25 Mg Tablet) 75 mg PO BEDTIME [facility] Last Admin: 02/01/22 20:15 Dose: 75 mg Documented by: Trazodone HCl (Trazodone Hcl 50 Mg Tablet) 50 mg PO BEDTIME PRN PRN Reason: Insomnia Last Admin: 01/21/22 01:18 Dose: 50 mg Documented by: Trazodone HCl (Trazodone Hcl 100 Mg Tablet) 250 mg PO BEDTIME [facility] Last Admin: 02/01/22 20:13 Dose: 250 mg Documented by: Vilazodone HCl (Vilazodone Hcl 20 Mg Tablet) 20 mg PO DAILY [facility] Last Admin: 02/02/22 08:45 Dose: 20 mg Documented by: Vitamin D (Cholecalciferol (Vitamin D3) 10 Mcg Tablet) 20 mcg PO DAILY [facility] Last Admin: 02/02/22 08:45 Dose: 20 mcg Documented by: Allergies Allergies Allergy/AdvReac Type Severity Reaction Status Date / Time fentanyl [FENTANYL] Allergy Intermediate unknown Verified 05/22/21 11:43 Assessment & Plan Assessment & Plan (1) Major depressive disorder, recurrent severe without psychotic features: Status: Acute Code(s): F33.2 - Major depressive disorder, recurrent severe without psychotic features Assessment and Plan: Continue doxepin Seroquel recently increased Lamictal to 200 b.i.d. CBT skills reviewed Increase Seroquel as needed continue physical therapy patient referred to [facility] (2) Cognitive and neurobehavioral dysfunction following brain injury: Status: Acute Code(s): G31.89 - Other specified degenerative diseases of nervous system; F09 - Unspecified mental disorder due to known physiological condition; S06.9X9S - Unspecified intracranial injury with loss of consciousness of unspecified duration, sequela (3) HTN (hypertension): Status: Acute Code(s): I10 - Essential (primary) hypertension Plan inc seroquel inc lamictal needs encouragement rehab setting I spent __20____ minutes with the patient and/or on the patient floor today, greater than?50% of which was spent counseling/coordinating care. Patient educated on: diagnosis and therapeutic strategies Informed Consent: understands Reason for contiued inpatient stay Substantial Risk for: inability to function, rapid decompensation and med/psych decompensation
[2022-02-02] MEDS: QUEtiapine Fumarate 50 MG TABLET PO (13:17)
[2022-02-02] MEDS: polyethylene glycoL 3350 17 GM POWD.PACK PO (16:03)
[2022-02-02 18:00] VITALS: BP 130/66; PULSE 70; RESP 18; TEMP 36; O2SAT 96
[2022-02-02] MEDS: Melatonin 3 MG TABLET 6 MG PO (21:32)
[2022-02-02] MEDS: traZODone HCL 100 MG TABLET 250 MG PO (21:32)
[2022-02-02] MEDS: LORazepam 0.5 MG TABLET PO (21:33)
[2022-02-02] MEDS: Nortriptyline HCl 25 MG CAPSULE 100 MG PO (21:33)
[2022-02-02] MEDS: QUEtiapine Fumarate 25 MG TABLET 75 MG PO (21:33)
[2022-02-02] MEDS: Latanoprost 0.005 % Ophth Sol 2.5 ML DROPS 1 DROP EYE-BOTH (21:38)
[2022-02-02] MEDS: Hydrocortisone 1 % Cream 28.35 GM TUBE 1 APPL TOPICAL (21:38)
[2022-02-03 07:55] VITALS: BP 146/82; PULSE 77; RESP 17; TEMP 36.2; O2SAT 95
[2022-02-03] MEDS: Finasteride 5 MG TABLET PO (09:29)
[2022-02-03] MEDS: Gabapentin 400 MG CAPSULE PO ×3 (09:30→21:39)
[2022-02-03] MEDS: lisinopriL 20 MG TABLET PO (09:30)
[2022-02-03] MEDS: Pramipexole Di-HCL 0.125 MG TABLET PO ×3 (09:30→21:42)
[2022-02-03] MEDS: amLODIPine Besylate 5 MG TABLET PO (09:30)
[2022-02-03] MEDS: lamoTRIgine 100 MG TABLET 200 MG PO ×2 (09:30→21:40)
[2022-02-03] MEDS: Cholecalciferol (Vitamin D3) 10 MCG TABLET 20 MCG PO (09:30)
[2022-02-03] MEDS: Multivitamin TABLET 1 TAB PO (09:30)
[2022-02-03] MEDS: Vilazodone HCL 20 MG TABLET PO (09:30)
[2022-02-03] MEDS: QUEtiapine Fumarate 25 MG TABLET PO (09:30)
[2022-02-03] MEDS: Acetaminophen 325 MG TABLET 650 MG PO ×2 (09:30→21:44)
[2022-02-03] MEDS: LORazepam 0.5 MG TABLET PO (09:31)
[2022-02-03] MEDS: QUEtiapine Fumarate 50 MG TABLET PO (14:26)
[2022-02-03] MEDS: Docusate Sodium 100 MG CAPSULE PO (16:28)
[2022-02-03] MEDS: polyethylene glycoL 3350 17 GM POWD.PACK PO (16:28)
--- NOTE | 2022-02-03 17:16 | HO.PSYCHPN ---
Subjective Subjective Date of Service: 02/03/22 Reason For Visit: depression Subjective Notes: Conditional Voluntary Healthcare Proxy: No Guardianship: No Interim History: pt has been intermittantly discouraged [facility] has been doing PT hopeful for rehab setting Medication Compliance: Yes Attending Groups: Intermittent Review of Systems Acute medical concerns: Yes ambulation Medical Review of Systems: unchanged Mental Status Exam Mental Status Exam Patient Appearance: Appropriate Patient Orientation: Person Level of Consciousness: Awake Patient Behavior: Cooperative Mood Description: Withdrawn Affect Description: Constricted Ability to Follow Directions: Good Speech Pattern: Clear Hallucinations: None Delusions: Not Present Thought Process: Linear Thought Content: positive for Circumstantial Judgement: Fair Diagnostics Vital Signs (24Hr): Vital Signs - 24 hr 02/02/22 18:00 02/03/22 07:55 Temperature 96.8 F 97.1 F Pulse Rate 70 77 Respiratory Rate 18 17 Blood Pressure 130/66 146/82 H Pulse Oximetry 96 95 BMI result Body Mass Index 30.5 Labs Results: 01/19/22 09:00 01/19/22 09:00 Imaging Radiology Impressions: ITS Impressions Hip X-Ray 01/05/22 16:00 IMPRESSION: Healed old fracture right femoral neck. The femoral neck screws that had been present in 2010 has been removed. No acute finding. Medications Medications Current Medications Acetaminophen (Acetaminophen 325 Mg Tablet) 650 mg PO Q6H PRN PRN Reason: Pain (Scale Score 1-3) Last Admin: 02/03/22 09:30 Dose: 650 mg Documented by: Al Hydroxide/Mg Hydroxide (Magnesium Hydrox/Alum Hydrox 30 Ml Oral.Susp) 30 ml PO Q6H PRN PRN Reason: Heartburn/Nausea Last Admin: 12/16/21 14:54 Dose: 30 ml Documented by: Albuterol Sulfate (Albuterol Sulfate 90 Mcg 8 Gm Inhaler) 2 puff INHALE Q6H PRN PRN Reason: Shortness Of Breath Last Admin: 12/24/21 21:33 Dose: 2 puff Documented by: Amlodipine Besylate (Amlodipine Besylate 5 Mg Tablet) 5 mg PO DAILY [facility]; Protocol Last Admin: 02/03/22 09:30 Dose: 5 mg Documented by: Artificial Tears (Artificial Tears 15 Ml Drops) 1 drop EYE-BOTH Q1H PRN PRN Reason: Dry Eye(S) Atenolol (Atenolol 25 Mg Tablet) 25 mg PO DAILY [facility]; Protocol Last Admin: 01/18/22 09:33 Dose: 25 mg Documented by: Docusate Sodium (Docusate Sodium 100 Mg Capsule) 100 mg PO BID PRN PRN Reason: Constipation Last Admin: 02/03/22 16:28 Dose: 100 mg Documented by: Finasteride (Finasteride 5 Mg Tablet) 5 mg PO DAILY [facility] Last Admin: 02/03/22 09:29 Dose: 5 mg Documented by: Gabapentin (Gabapentin 400 Mg Capsule) 400 mg PO TID [facility] Last Admin: 02/03/22 14:26 Dose: 400 mg Documented by: Hydrocortisone (Hydrocortisone 1 % Cream 28.35 Gm Tube) 1 appl TOPICAL BID [facility]; Protocol Last Admin: 02/03/22 09:31 Dose: Not Given Documented by: Hydroxyzine HCl (Hydroxyzine Hcl 25 Mg Tablet) 25 mg PO BEDTIME PRN PRN Reason: Anxiety Last Admin: 01/30/22 02:59 Dose: 25 mg Documented by: Ibuprofen (Ibuprofen 400 Mg Tablet) 400 mg PO Q6H PRN PRN Reason: Pain, Moderate (Pain Scale 4-6 Last Admin: 02/02/22 21:31 Dose: 400 mg Documented by: Lamotrigine (Lamotrigine 100 Mg Tablet) 200 mg PO BID [facility] Last Admin: 02/03/22 09:30 Dose: 200 mg Documented by: Latanoprost (Latanoprost 0.005 % Ophth No 2.5 Ml Drops) 1 drop EYE-BOTH BEDTIME [facility] Last Admin: 02/02/22 21:38 Dose: 1 drop Documented by: Lidocaine (Lidocaine 4 % Patch Adh..Patch) 1 patch TRANSDERMA DAILY [facility]; Protocol Last Admin: 02/03/22 09:31 Dose: Not Given Documented by: Lisinopril (Lisinopril 20 Mg Tablet) 20 mg PO DAILY [facility]; Protocol Last Admin: 02/03/22 09:30 Dose: 20 mg Documented by: Lorazepam (Lorazepam 0.5 Mg Tablet) 0.5 mg PO Q4H PRN PRN Reason: Anxiety Last Admin: 02/03/22 09:31 Dose: 0.5 mg Documented by: Magnesium Hydroxide (Milk Of Magnesia 30 Ml Oral.Susp) 30 ml PO Q72H PRN PRN Reason: Constipation Last Admin: 12/12/21 10:20 Dose: 30 ml Documented by: Magnesium Hydroxide (Milk Of Magnesia 30 Ml Oral.Susp) 30 ml PO DAILY PRN PRN Reason: Constipation Melatonin (Melatonin 3 Mg Tablet) 6 mg PO BEDTIME [facility] Last Admin: 02/02/22 21:32 Dose: 6 mg Documented by: Multivitamins/Vitamin C (Multivitamin Tablet) 1 tab PO DAILY [facility] Last Admin: 02/03/22 09:30 Dose: 1 tab Documented by: Nortriptyline HCl (Nortriptyline Hcl 25 Mg Capsule) 100 mg PO BEDTIME [facility] Last Admin: 02/02/22 21:33 Dose: 100 mg Documented by: Nystatin (Nystatin Cream 15 Gm Tube) 1 appl TOPICAL BID [facility]; Protocol Last Admin: 02/03/22 09:31 Dose: Not Given Documented by: Ondansetron HCl (Ondansetron Odt 4 Mg Tab.Rapdis) 4 mg TRANSLINGU Q8H PRN PRN Reason: Nausea and Vomiting Last Admin: 01/19/22 01:23 Dose: 4 mg Documented by: Polyethylene Glycol (Polyethylene Glycol 3350 17 Gm Powd.Pack) 17 gm PO DAILY PRN PRN Reason: Constipation Last Admin: 12/22/21 21:39 Dose: 17 gm Documented by: Polyethylene Glycol (Polyethylene Glycol 3350 17 Gm Powd.Pack) 17 gm PO DAILY@1600 [facility] Last Admin: 02/03/22 16:28 Dose: 17 gm Documented by: Pramipexole Dihydrochloride (Pramipexole Di-Hcl 0.125 Mg Tablet) 0.125 mg PO TID [facility] Last Admin: 02/03/22 14:26 Dose: 0.125 mg Documented by: Psyllium Hydrophilic Mucilloid (Psyllium Seed 3.4 Gm Powd.Pack) 3.4 gm PO DAILY [facility] Last Admin: 02/03/22 09:29 Dose: 3.4 gm Documented by: Quetiapine Fumarate (Quetiapine Fumarate 25 Mg Tablet) 25 mg PO BID PRN PRN Reason: Anxiety Last Admin: 02/02/22 06:18 Dose: 25 mg Documented by: Quetiapine Fumarate (Quetiapine Fumarate 50 Mg Tablet) 50 mg PO DAILY@1300 [facility] Last Admin: 02/03/22 14:26 Dose: 50 mg Documented by: Quetiapine Fumarate (Quetiapine Fumarate 25 Mg Tablet) 25 mg PO DAILY [facility] Last Admin: 02/03/22 09:30 Dose: 25 mg Documented by: Quetiapine Fumarate (Quetiapine Fumarate 25 Mg Tablet) 75 mg PO BEDTIME [facility] Last Admin: 02/02/22 21:33 Dose: 75 mg Documented by: Trazodone HCl (Trazodone Hcl 50 Mg Tablet) 50 mg PO BEDTIME PRN PRN Reason: Insomnia Last Admin: 01/21/22 01:18 Dose: 50 mg Documented by: Trazodone HCl (Trazodone Hcl 100 Mg Tablet) 250 mg PO BEDTIME [facility] Last Admin: 02/02/22 21:32 Dose: 250 mg Documented by: Vitamin D (Cholecalciferol (Vitamin D3) 10 Mcg Tablet) 20 mcg PO DAILY [facility] Last Admin: 02/03/22 09:30 Dose: 20 mcg Documented by: Allergies Allergies Allergy/AdvReac Type Severity Reaction Status Date / Time fentanyl [FENTANYL] Allergy Intermediate unknown Verified 05/22/21 11:43 Assessment & Plan Assessment & Plan (1) Major depressive disorder, recurrent severe without psychotic features: Status: Acute Code(s): F33.2 - Major depressive disorder, recurrent severe without psychotic features Assessment and Plan: Continue doxepin Seroquel recently increased Lamictal to 200 b.i.d. CBT skills reviewed Increase Seroquel as needed continue physical therapy patient referred to [facility] has been accepted (2) Cognitive and neurobehavioral dysfunction following brain injury: Status: Acute Code(s): G31.89 - Other specified degenerative diseases of nervous system; F09 - Unspecified mental disorder due to known physiological condition; S06.9X9S - Unspecified intracranial injury with loss of consciousness of unspecified duration, sequela (3) HTN (hypertension): Status: Acute Code(s): I10 - Essential (primary) hypertension Plan inc seroquel inc lamictal needs encouragement rehab setting I spent minutes with the patient and/or on the patient floor today, greater than?50% of which was spent counseling/coordinating care. Reason for contiued inpatient stay Substantial Risk for: inability to function and rapid decompensation
[2022-02-03 18:00] VITALS: BP 123/72; PULSE 77; RESP 18; TEMP 36.3; O2SAT 95
[2022-02-03] MEDS: Latanoprost 0.005 % Ophth Sol 2.5 ML DROPS 1 DROP EYE-BOTH (21:40)
[2022-02-03] MEDS: Hydrocortisone 1 % Cream 28.35 GM TUBE 1 APPL TOPICAL (21:40)
[2022-02-03] MEDS: Nystatin Cream 15 GM TUBE 1 APPL TOPICAL (21:41)
[2022-02-03] MEDS: Melatonin 3 MG TABLET 6 MG PO (21:41)
[2022-02-03] MEDS: Nortriptyline HCl 25 MG CAPSULE 100 MG PO (21:41)
[2022-02-03] MEDS: QUEtiapine Fumarate 25 MG TABLET 75 MG PO (21:42)
[2022-02-03] MEDS: traZODone HCL 100 MG TABLET 250 MG PO (21:42)
[2022-02-04] MEDS: LORazepam 0.5 MG TABLET PO ×2 (01:17→16:58)
[2022-02-04 07:30] VITALS: BP 131/72; PULSE 74; RESP 16; TEMP 36.2; O2SAT 96
[2022-02-04 08:43] LABS: MANUAL DIFF FLAG NO
[2022-02-04 08:46] LABS: Basophils Percent Auto 0.5 % (0-2); Eosinophils Absolute Auto 0.3 X10*3/uL (0.0-0.4); Eosinophils Percent Auto 5.3 % (0-4); Hematocrit 42.7 % (42.0-52.0); Hemoglobin 13.9 g/dl (14.0-18.0); Imm Gran Abs Auto 0.06 X10*3/uL (0.00-0.03); Lymphocytes Absolute Auto 1.6 X10*3/uL (1.2-4.9); Lymphocytes Percent Auto 25.9 % (20-40); Mean Corpuscular HGB Conc 32.6 g/dl (31.0-36.0); Mean Corpuscular Hemoglobin 32.2 pg (27.0-33.0); Mean Corpuscular Volume 98.8 fL (80.0-98.0); Mean Platelet Volume 9.5 fL (9.4-12.4); Monocytes Absolute Auto 0.3 X10*3/uL (0.1-1.2); Monocytes Percent Auto 4.3 % (2-11); Platelet Count 193 X10*3/uL (160-400); Red Blood Count 4.32 X10*6/uL (4.60-5.80); White Blood Count 6.3 X10*3/uL (4.8-10.8)
[2022-02-04 09:22] LABS: Alanine Aminotransferase 44 U/L (0-40); Albumin Level 4.6 g/dL (3.5-5.0); Alkaline Phosphatase 83 U/L (39-117); Anion Gap 15 (12-20); Aspartate Amino Transferase 24 U/L (5-37); Bilirubin Total 0.4 mg/dL (0.0-1.0); Blood Urea Nitrogen 14 mg/dL (9-16); Calcium 10.1 mg/dL (8.4-10.2); Carbon Dioxide 26 mmol/L (22-29); Chloride 103 mmol/L (96-108); Creatinine Clr Calc Pharmacy 84.5; Estimated Glomerular Filt Rate > 60; Glucose Fasting 135 mg/dL (60-99); Potassium 5.4 mmol/L (3.3-5.1); Sodium 139 mmol/L (135-145); Total Protein 7.3 g/dL (6.5-8.0)
[2022-02-04] MEDS: QUEtiapine Fumarate 25 MG TABLET PO (09:28)
[2022-02-04] MEDS: Multivitamin TABLET 1 TAB PO (09:28)
[2022-02-04] MEDS: Cholecalciferol (Vitamin D3) 10 MCG TABLET 20 MCG PO (09:28)
[2022-02-04] MEDS: lamoTRIgine 100 MG TABLET 200 MG PO ×2 (09:28→21:51)
[2022-02-04] MEDS: Finasteride 5 MG TABLET PO (09:29)
[2022-02-04] MEDS: Pramipexole Di-HCL 0.125 MG TABLET PO ×3 (09:29→21:52)
[2022-02-04] MEDS: amLODIPine Besylate 5 MG TABLET PO (09:29)
[2022-02-04] MEDS: Gabapentin 400 MG CAPSULE PO ×3 (09:29→21:51)
[2022-02-04] MEDS: lisinopriL 20 MG TABLET PO (09:29)
[2022-02-04] MEDS: Docusate Sodium 100 MG CAPSULE PO (09:54)
[2022-02-04 10:52] VITALS: BP 131/72; PULSE 74; O2SAT 96
[2022-02-04] MEDS: QUEtiapine Fumarate 50 MG TABLET PO (13:55)
[2022-02-04] MEDS: polyethylene glycoL 3350 17 GM POWD.PACK PO (16:58)
--- NOTE | 2022-02-04 17:08 | HO.PSYCHPN ---
Subjective Subjective Date of Service: 02/04/22 Reason For Visit: depression Subjective Notes: Conditional Voluntary Healthcare Proxy: No Guardianship: No Medical Problems Affecting Mental Status: No Medication Compliance: Yes Side effects from medications: No Attending Groups: Intermittent Review of Systems Medical Review of Systems: unchanged Mental Status Exam Mental Status Exam Patient Appearance: Appropriate Patient Orientation: Person, Place, Time and Situation Level of Consciousness: Awake Patient Behavior: Cooperative Mood Description: Withdrawn Affect Description: Constricted and Apprehensive Ability to Follow Directions: Good Speech Pattern: Clear Memory Description: Intact Hallucinations: None Delusions: Not Present Thought Process: Linear Thought Content: positive for Circumstantial, negative for Suicidal Ideation or negative for Homicidal Ideation Depressive Symptoms: Increased Irritability Judgement: Fair Diagnostics Vital Signs (24Hr): Vital Signs - 24 hr 02/03/22 18:00 02/04/22 07:30 02/04/22 10:52 Temperature 97.4 F 97.2 F Pulse Rate 77 74 74 Respiratory Rate 18 16 Blood Pressure 123/72 131/72 131/72 Pulse Oximetry 95 96 96 BMI result Body Mass Index 30.5 Labs Results: 02/04/22 08:27 02/04/22 08:27 Labs: Laboratory Results - last 48 hr 02/04/22 02/04/22 08:27 08:27 WBC 6.3 RBC 4.32 L Hgb 13.9 L Hct 42.7 MCV 98.8 H MCH 32.2 MCHC 32.6 RDW 12.0 Plt Count 193 MPV 9.5 Immature Gran % (Auto) 1.0 H Neut % (Auto) 63.0 Lymph % (Auto) 25.9 [place] % (Auto) 4.3 Eos % (Auto) 5.3 H Baso % (Auto) 0.5 Lymph # (Auto) 1.6 [place] # (Auto) 0.3 Eos # (Auto) 0.3 Baso # (Auto) 0.0 Abs Immat Gran (auto) 0.06 H Absolute Neuts (auto) 4.0 Absolute Nucleated RBC 0.000 Nucleated RBC % (auto) 0.0 Sodium 139 Potassium 5.4 H Chloride 103 Carbon Dioxide 26 Anion Gap 15 BUN 14 Creatinine 1.11 Estim Creat Clear Calc 84.5 Estimated GFR > 60 Fasting Glucose 135 H D Calcium 10.1 Total Bilirubin 0.4 AST 24 ALT 44 H Alkaline Phosphatase 83 Total Protein 7.3 Albumin 4.6 Imaging Radiology Impressions: ITS Impressions Hip X-Ray 01/05/22 16:00 IMPRESSION: Healed old fracture right femoral neck. The femoral neck screws that had been present in 2010 has been removed. No acute finding. Medications Medications Current Medications Acetaminophen (Acetaminophen 325 Mg Tablet) 650 mg PO Q6H PRN PRN Reason: Pain (Scale Score 1-3) Last Admin: 02/03/22 21:44 Dose: 650 mg Documented by: Al Hydroxide/Mg Hydroxide (Magnesium Hydrox/Alum Hydrox 30 Ml Oral.Susp) 30 ml PO Q6H PRN PRN Reason: Heartburn/Nausea Last Admin: 12/16/21 14:54 Dose: 30 ml Documented by: Albuterol Sulfate (Albuterol Sulfate 90 Mcg 8 Gm Inhaler) 2 puff INHALE Q6H PRN PRN Reason: Shortness Of Breath Last Admin: 12/24/21 21:33 Dose: 2 puff Documented by: Amlodipine Besylate (Amlodipine Besylate 5 Mg Tablet) 5 mg PO DAILY [facility]Z; Protocol Last Admin: 02/04/22 09:29 Dose: 5 mg Documented by: Artificial Tears (Artificial Tears 15 Ml Drops) 1 drop EYE-BOTH Q1H PRN PRN Reason: Dry Eye(S) Atenolol (Atenolol 25 Mg Tablet) 25 mg PO DAILY TAZ; Protocol Last Admin: 01/18/22 09:33 Dose: 25 mg Documented by: Docusate Sodium (Docusate Sodium 100 Mg Capsule) 100 mg PO BID PRN PRN Reason: Constipation Last Admin: 02/04/22 09:54 Dose: 100 mg Documented by: Finasteride (Finasteride 5 Mg Tablet) 5 mg PO DAILY TAZ Last Admin: 02/04/22 09:29 Dose: 5 mg Documented by: Gabapentin (Gabapentin 400 Mg Capsule) 400 mg PO TID TAZ Last Admin: 02/04/22 14:00 Dose: 400 mg Documented by: Hydrocortisone (Hydrocortisone 1 % Cream 28.35 Gm Tube) 1 appl TOPICAL BID TAZ; Protocol Last Admin: 02/04/22 09:29 Dose: Not Given Documented by: Hydroxyzine HCl (Hydroxyzine Hcl 25 Mg Tablet) 25 mg PO BEDTIME PRN PRN Reason: Anxiety Last Admin: 01/30/22 02:59 Dose: 25 mg Documented by: Ibuprofen (Ibuprofen 400 Mg Tablet) 400 mg PO Q6H PRN PRN Reason: Pain, Moderate (Pain Scale 4-6 Last Admin: 02/02/22 21:31 Dose: 400 mg Documented by: Lamotrigine (Lamotrigine 100 Mg Tablet) 200 mg PO BID [facility] Last Admin: 02/04/22 09:28 Dose: 200 mg Documented by: Latanoprost (Latanoprost 0.005 % Ophth No 2.5 Ml Drops) 1 drop EYE-BOTH BEDTIME [facility] Last Admin: 02/03/22 21:40 Dose: 1 drop Documented by: Lidocaine (Lidocaine 4 % Patch Adh..Patch) 1 patch TRANSDERMA DAILY [facility]; Protocol Last Admin: 02/04/22 09:29 Dose: Not Given Documented by: Lisinopril (Lisinopril 20 Mg Tablet) 20 mg PO DAILY [facility]; Protocol Last Admin: 02/04/22 09:29 Dose: 20 mg Documented by: Lorazepam (Lorazepam 0.5 Mg Tablet) 0.5 mg PO Q4H PRN PRN Reason: Anxiety Last Admin: 02/04/22 16:58 Dose: 0.5 mg Documented by: Magnesium Hydroxide (Milk Of Magnesia 30 Ml Oral.Susp) 30 ml PO Q72H PRN PRN Reason: Constipation Last Admin: 12/12/21 10:20 Dose: 30 ml Documented by: Magnesium Hydroxide (Milk Of Magnesia 30 Ml Oral.Susp) 30 ml PO DAILY PRN PRN Reason: Constipation Melatonin (Melatonin 3 Mg Tablet) 6 mg PO BEDTIME [facility] Last Admin: 02/03/22 21:41 Dose: 6 mg Documented by: Multivitamins/Vitamin C (Multivitamin Tablet) 1 tab PO DAILY [facility] Last Admin: 02/04/22 09:28 Dose: 1 tab Documented by: Nortriptyline HCl (Nortriptyline Hcl 25 Mg Capsule) 100 mg PO BEDTIME [facility] Last Admin: 02/03/22 21:41 Dose: 100 mg Documented by: Nystatin (Nystatin Cream 15 Gm Tube) 1 appl TOPICAL BID [facility]; Protocol Last Admin: 02/04/22 09:33 Dose: Not Given Documented by: Ondansetron HCl (Ondansetron Odt 4 Mg Tab.Rapdis) 4 mg TRANSLINGU Q8H PRN PRN Reason: Nausea and Vomiting Last Admin: 01/19/22 01:23 Dose: 4 mg Documented by: Polyethylene Glycol (Polyethylene Glycol 3350 17 Gm Powd.Pack) 17 gm PO DAILY PRN PRN Reason: Constipation Last Admin: 12/22/21 21:39 Dose: 17 gm Documented by: Polyethylene Glycol (Polyethylene Glycol 3350 17 Gm Powd.Pack) 17 gm PO DAILY@1600 [facility] Last Admin: 02/04/22 16:58 Dose: 17 gm Documented by: Pramipexole Dihydrochloride (Pramipexole Di-Hcl 0.125 Mg Tablet) 0.125 mg PO TID [facility] Last Admin: 02/04/22 14:00 Dose: 0.125 mg Documented by: Psyllium Hydrophilic Mucilloid (Psyllium Seed 3.4 Gm Powd.Pack) 3.4 gm PO DAILY [facility] Last Admin: 02/04/22 09:28 Dose: 3.4 gm Documented by: Quetiapine Fumarate (Quetiapine Fumarate 25 Mg Tablet) 25 mg PO BID PRN PRN Reason: Anxiety Last Admin: 02/02/22 06:18 Dose: 25 mg Documented by: Quetiapine Fumarate (Quetiapine Fumarate 50 Mg Tablet) 50 mg PO DAILY@1300 [facility] Last Admin: 02/04/22 13:55 Dose: 50 mg Documented by: Quetiapine Fumarate (Quetiapine Fumarate 25 Mg Tablet) 25 mg PO DAILY [facility] Last Admin: 02/04/22 09:28 Dose: 25 mg Documented by: Quetiapine Fumarate (Quetiapine Fumarate 25 Mg Tablet) 75 mg PO BEDTIME [facility] Last Admin: 02/03/22 21:42 Dose: 75 mg Documented by: Trazodone HCl (Trazodone Hcl 50 Mg Tablet) 50 mg PO BEDTIME PRN PRN Reason: Insomnia Last Admin: 01/21/22 01:18 Dose: 50 mg Documented by: Trazodone HCl (Trazodone Hcl 100 Mg Tablet) 250 mg PO BEDTIME [facility] Last Admin: 02/03/22 21:42 Dose: 250 mg Documented by: Vitamin D (Cholecalciferol (Vitamin D3) 10 Mcg Tablet) 20 mcg PO DAILY [facility] Last Admin: 02/04/22 09:28 Dose: 20 mcg Documented by: Allergies Allergies Allergy/AdvReac Type Severity Reaction Status Date / Time fentanyl [FENTANYL] Allergy Intermediate unknown Verified 05/22/21 11:43 Assessment & Plan Assessment & Plan (1) Major depressive disorder, recurrent severe without psychotic features: Status: Acute Code(s): F33.2 - Major depressive disorder, recurrent severe without psychotic features Assessment and Plan: Continue nortriptyline Seroquel recently cont Lamictal. CBT skills reviewed Increase Seroquel as needed continue physical therapy patient referred to [facility] has been accepted (2) Cognitive and neurobehavioral dysfunction following brain injury: Status: Acute Code(s): G31.89 - Other specified degenerative diseases of nervous system; F09 - Unspecified mental disorder due to known physiological condition; S06.9X9S - Unspecified intracranial injury with loss of consciousness of unspecified duration, sequela (3) HTN (hypertension): Status: Acute Code(s): I10 - Essential (primary) hypertension I spent minutes with the patient and/or on the patient floor today, greater than?50% of which was spent counseling/coordinating care. Reason for contiued inpatient stay Substantial Risk for: inability to function and rapid decompensation
[2022-02-04 18:00] VITALS: BP 136/62; PULSE 81; RESP 18; TEMP 36.3; O2SAT 97
[2022-02-04] MEDS: Hydrocortisone 1 % Cream 28.35 GM TUBE 1 APPL TOPICAL (21:50)
[2022-02-04] MEDS: Nystatin Cream 15 GM TUBE 1 APPL TOPICAL (21:50)
[2022-02-04] MEDS: Latanoprost 0.005 % Ophth Sol 2.5 ML DROPS 1 DROP EYE-BOTH (21:51)
[2022-02-04] MEDS: Nortriptyline HCl 25 MG CAPSULE 100 MG PO (21:52)
[2022-02-04] MEDS: Melatonin 3 MG TABLET 6 MG PO (21:52)
[2022-02-04] MEDS: traZODone HCL 100 MG TABLET 250 MG PO (21:53)
[2022-02-04] MEDS: QUEtiapine Fumarate 25 MG TABLET 75 MG PO (21:53)
[2022-02-04] MEDS: Ibuprofen 400 MG TABLET PO (21:54)
[2022-02-05 07:30] VITALS: BP 170/83; PULSE 83; RESP 18; TEMP 36.5; O2SAT 96
[2022-02-05] MEDS: Pramipexole Di-HCL 0.125 MG TABLET PO ×3 (09:39→20:36)
[2022-02-05] MEDS: lisinopriL 20 MG TABLET PO (09:39)
[2022-02-05] MEDS: QUEtiapine Fumarate 25 MG TABLET PO (09:39)
[2022-02-05] MEDS: Finasteride 5 MG TABLET PO (09:39)
[2022-02-05] MEDS: lamoTRIgine 100 MG TABLET 200 MG PO ×2 (09:39→20:34)
[2022-02-05] MEDS: Cholecalciferol (Vitamin D3) 10 MCG TABLET 20 MCG PO (09:39)
[2022-02-05] MEDS: amLODIPine Besylate 5 MG TABLET PO (09:39)
[2022-02-05] MEDS: Multivitamin TABLET 1 TAB PO (09:39)
[2022-02-05] MEDS: Gabapentin 400 MG CAPSULE PO ×3 (09:39→20:34)
[2022-02-05] MEDS: LORazepam 0.5 MG TABLET PO ×3 (09:44→20:41)
[2022-02-05 10:58] VITALS: BP 170/83; PULSE 83; O2SAT 96
[2022-02-05] MEDS: QUEtiapine Fumarate 50 MG TABLET PO (12:34)
[2022-02-05] MEDS: polyethylene glycoL 3350 17 GM POWD.PACK PO (16:24)
--- NOTE | 2022-02-05 18:20 | P.PNPSI_ITS ---
Subjective Subjective Date of Service: 02/05/22 Reason For Visit: depression Subjective Notes: Conditional Voluntary Healthcare Proxy: No Guardianship: No Interim History: pt needs much encouragement and support has concerns regarding rehab referral and whether this will support him no si but periods of blues Medication Compliance: Yes Mental Status Exam Mental Status Exam Patient Appearance: Appropriate Patient Orientation: Person, Place, Time and Situation Level of Consciousness: Awake Patient Behavior: Cooperative Mood Description: Withdrawn Affect Description: Constricted and Apprehensive Ability to Follow Directions: Good Speech Pattern: Clear Memory Description: Intact Hallucinations: None Delusions: Not Present Thought Process: Linear Thought Content: positive for Circumstantial, negative for Suicidal Ideation or negative for Homicidal Ideation Depressive Symptoms: Increased Irritability Judgement: Fair Diagnostics Vital Signs (24Hr): Vital Signs - 24 hr 02/05/22 07:30 02/05/22 10:58 Temperature 97.7 F Pulse Rate 83 83 Respiratory Rate 18 Blood Pressure 170/83 H 170/83 H Pulse Oximetry 96 96 BMI result Body Mass Index 30.5 Labs Results: 02/04/22 08:27 02/04/22 08:27 Labs: Laboratory Results - last 48 hr 02/04/22 02/04/22 08:27 08:27 WBC 6.3 RBC 4.32 L Hgb 13.9 L Hct 42.7 MCV 98.8 H MCH 32.2 MCHC 32.6 RDW 12.0 Plt Count 193 MPV 9.5 Immature Gran % (Auto) 1.0 H Neut % (Auto) 63.0 Lymph % (Auto) 25.9 [place] % (Auto) 4.3 Eos % (Auto) 5.3 H Baso % (Auto) 0.5 Lymph # (Auto) 1.6 [place] # (Auto) 0.3 Eos # (Auto) 0.3 Baso # (Auto) 0.0 Abs Immat Gran (auto) 0.06 H Absolute Neuts (auto) 4.0 Absolute Nucleated RBC 0.000 Nucleated RBC % (auto) 0.0 Sodium 139 Potassium 5.4 H Chloride 103 Carbon Dioxide 26 Anion Gap 15 BUN 14 Creatinine 1.11 Estim Creat Clear Calc 84.5 Estimated GFR > 60 Fasting Glucose 135 H D Calcium 10.1 Total Bilirubin 0.4 AST 24 ALT 44 H Alkaline Phosphatase 83 Total Protein 7.3 Albumin 4.6 Imaging Radiology Impressions: ITS Impressions Hip X-Ray 01/05/22 16:00 IMPRESSION: Healed old fracture right femoral neck. The femoral neck screws that had been present in 2010 has been removed. No acute finding. Medications Medications Current Medications Acetaminophen (Acetaminophen 325 Mg Tablet) 650 mg PO Q6H PRN PRN Reason: Pain (Scale Score 1-3) Last Admin: 02/03/22 21:44 Dose: 650 mg Documented by: Al Hydroxide/Mg Hydroxide (Magnesium Hydrox/Alum Hydrox 30 Ml Oral.Susp) 30 ml PO Q6H PRN PRN Reason: Heartburn/Nausea Last Admin: 12/16/21 14:54 Dose: 30 ml Documented by: Albuterol Sulfate (Albuterol Sulfate 90 Mcg 8 Gm Inhaler) 2 puff INHALE Q6H PRN PRN Reason: Shortness Of Breath Last Admin: 12/24/21 21:33 Dose: 2 puff Documented by: Amlodipine Besylate (Amlodipine Besylate 5 Mg Tablet) 5 mg PO DAILY COUNTS [facility]CLUDE 234 BEDS AT [facility]; Protocol Last Admin: 02/05/22 09:39 Dose: 5 mg Documented by: Artificial Tears (Artificial Tears 15 Ml Drops) 1 drop EYE-BOTH Q1H PRN PRN Reason: Dry Eye(S) Atenolol (Atenolol 25 Mg Tablet) 25 mg PO DAILY COUNTS INCLUDE 234 BEDS AT THE [facility]; Protocol Last Admin: 01/18/22 09:33 Dose: 25 mg Documented by: Docusate Sodium (Docusate Sodium 100 Mg Capsule) 100 mg PO BID PRN PRN Reason: Constipation Last Admin: 02/04/22 09:54 Dose: 100 mg Documented by: Finasteride (Finasteride 5 Mg Tablet) 5 mg PO DAILY COUNTS INCLUDE 234 BEDS AT THE [facility] Last Admin: 02/05/22 09:39 Dose: 5 mg Documented by: Gabapentin (Gabapentin 400 Mg Capsule) 400 mg PO TID [facility] Last Admin: 02/05/22 14:24 Dose: 400 mg Documented by: Hydrocortisone (Hydrocortisone 1 % Cream 28.35 Gm Tube) 1 appl TOPICAL BID COUNTS INCLUDE 234 BEDS AT [facility]; Protocol Last Admin: 02/05/22 09:40 Dose: Not Given Documented by: Hydroxyzine HCl (Hydroxyzine Hcl 25 Mg Tablet) 25 mg PO BEDTIME PRN PRN Reason: Anxiety Last Admin: 01/30/22 02:59 Dose: 25 mg Documented by: Ibuprofen (Ibuprofen 400 Mg Tablet) 400 mg PO Q6H PRN PRN Reason: Pain, Moderate (Pain Scale 4-6 Last Admin: 02/04/22 21:54 Dose: 400 mg Documented by: Lamotrigine (Lamotrigine 100 Mg Tablet) 200 mg PO BID [facility]S [facility]CLUDE 234 BEDS AT [facility] Last Admin: 02/05/22 09:39 Dose: 200 mg Documented by: Latanoprost (Latanoprost 0.005 % Ophth No 2.5 Ml Drops) 1 drop EYE-BOTH BEDTI [facility] Last Admin: 02/04/22 21:51 Dose: 1 drop Documented by: Lidocaine (Lidocaine 4 % Patch Adh..Patch) 1 patch TRANSDERMA DAILY [facility]S INCLUDE 234 BEDS AT THE [facility]; Protocol Last Admin: 02/05/22 09:39 Dose: Not Given Documented by: Lisinopril (Lisinopril 20 Mg Tablet) 20 mg PO DAILY [facility]S INCLUDE 234 BEDS AT [facility]; Protocol Last Admin: 02/05/22 09:39 Dose: 20 mg Documented by: Lorazepam (Lorazepam 0.5 Mg Tablet) 0.5 mg PO Q4H PRN PRN Reason: Anxiety Last Admin: 02/05/22 14:24 Dose: 0.5 mg Documented by: Magnesium Hydroxide (Milk Of Magnesia 30 Ml Oral.Susp) 30 ml PO Q72H PRN PRN Reason: Constipation Last Admin: 12/12/21 10:20 Dose: 30 ml Documented by: Magnesium Hydroxide (Milk Of Magnesia 30 Ml Oral.Susp) 30 ml PO DAILY PRN PRN Reason: Constipation Melatonin (Melatonin 3 Mg Tablet) 6 mg PO BEDTIME COUNTS INCLUDE 234 BEDS AT [facility] Last Admin: 02/04/22 21:52 Dose: 6 mg Documented by: Multivitamins/Vitamin C (Multivitamin Tablet) 1 tab PO DAILY [facility]S INCLUDE 234 BEDS AT [facility] Last Admin: 02/05/22 09:39 Dose: 1 tab Documented by: Nortriptyline HCl (Nortriptyline Hcl 25 Mg Capsule) 100 mg PO BEDTIME COUNTS INCLUDE 234 BEDS AT [facility] Last Admin: 02/04/22 21:52 Dose: 100 mg Documented by: Nystatin (Nystatin Cream 15 Gm Tube) 1 appl TOPICAL BID COUNTS INCLUDE 234 BEDS AT [facility]; Protocol Last Admin: 02/05/22 09:40 Dose: Not Given Documented by: Ondansetron HCl (Ondansetron Odt 4 Mg Tab.Rapdis) 4 mg TRANSLINGU Q8H PRN PRN Reason: Nausea and Vomiting Last Admin: 01/19/22 01:23 Dose: 4 mg Documented by: Polyethylene Glycol (Polyethylene Glycol 3350 17 Gm Powd.Pack) 17 gm PO DAILY PRN PRN Reason: Constipation Last Admin: 12/22/21 21:39 Dose: 17 gm Documented by: Polyethylene Glycol (Polyethylene Glycol 3350 17 Gm Powd.Pack) 17 gm PO DAILY@1600 COUNTS INCLUDE 234 BEDS AT [facility] Last Admin: 02/04/22 16:58 Dose: 17 gm Documented by: Pramipexole Dihydrochloride (Pramipexole Di-Hcl 0.125 Mg Tablet) 0.125 mg PO TID COUNTS INCLUDE 234 BEDS AT [facility] Last Admin: 02/05/22 14:24 Dose: 0.125 mg Documented by: Psyllium Hydrophilic Mucilloid (Psyllium Seed 3.4 Gm Powd.Pack) 3.4 gm PO DAILY COUNTS INCLUDE 234 BEDS AT THE [facility] Last Admin: 02/05/22 09:39 Dose: 3.4 gm Documented by: Quetiapine Fumarate (Quetiapine Fumarate 25 Mg Tablet) 25 mg PO BID PRN PRN Reason: Anxiety Last Admin: 02/02/22 06:18 Dose: 25 mg Documented by: Quetiapine Fumarate (Quetiapine Fumarate 50 Mg Tablet) 50 mg PO DAILY@1300 COUNTS INCLUDE 234 BEDS AT [facility] Last Admin: 02/05/22 12:34 Dose: 50 mg Documented by: Quetiapine Fumarate (Quetiapine Fumarate 25 Mg Tablet) 25 mg PO DAILY COUNTS INCLUDE 234 BEDS AT [facility] Last Admin: 02/05/22 09:39 Dose: 25 mg Documented by: Quetiapine Fumarate (Quetiapine Fumarate 25 Mg Tablet) 75 mg PO BEDTIME COUNTS INCLUDE 234 BEDS AT [facility] Last Admin: 02/04/22 21:53 Dose: 75 mg Documented by: Trazodone HCl (Trazodone Hcl 50 Mg Tablet) 50 mg PO BEDTIME PRN PRN Reason: Insomnia Last Admin: 01/21/22 01:18 Dose: 50 mg Documented by: Trazodone HCl (Trazodone Hcl 100 Mg Tablet) 250 mg PO BEDTIME COUNTS INCLUDE 234 BEDS AT [facility] Last Admin: 02/04/22 21:53 Dose: 250 mg Documented by: Vitamin D (Cholecalciferol (Vitamin D3) 10 Mcg Tablet) 20 mcg PO DAILY COUNTS INCLUDE 234 BEDS AT THE [facility] Last Admin: 02/05/22 09:39 Dose: 20 mcg Documented by: Allergies Allergies Allergy/AdvReac Type Severity Reaction Status Date / Time fentanyl [FENTANYL] Allergy Intermediate unknown Verified 05/22/21 11:43 Assessment & Plan Assessment & Plan (1) Major depressive disorder, recurrent severe without psychotic features: Status: Acute Code(s): F33.2 - Major depressive disorder, recurrent severe without psychotic features Assessment and Plan: Continue nortriptyline Seroquel recently cont Lamictal. CBT skills reviewed Increase Seroquel as needed continue physical therapy patient referred to [facility] has been accepted consider ssri but vilazadone lexapro not helpful continue encouragement does well with motivational interviewing (2) Cognitive and neurobehavioral dysfunction following brain injury: Status: Acute Code(s): G31.89 - Other specified degenerative diseases of nervous system; F09 - Unspecified mental disorder due to known physiological condition; S06.9X9S - Unspecified intracranial injury with loss of consciousness of unspecified duration, sequela (3) HTN (hypertension): Status: Acute Code(s): I10 - Essential (primary) hypertension I spent minutes with the patient and/or on the patient floor today, greater than?50% of which was spent counseling/coordinating care. Reason for contiued inpatient stay Substantial Risk for: inability to function and rapid decompensation
[2022-02-05 20:20] VITALS: BP 138/67; PULSE 76; RESP 18; TEMP 36.3; O2SAT 97
[2022-02-05] MEDS: Hydrocortisone 1 % Cream 28.35 GM TUBE 1 APPL TOPICAL (20:34)
[2022-02-05] MEDS: Nortriptyline HCl 25 MG CAPSULE 100 MG PO (20:35)
[2022-02-05] MEDS: Nystatin Cream 15 GM TUBE 1 APPL TOPICAL (20:35)
[2022-02-05] MEDS: Latanoprost 0.005 % Ophth Sol 2.5 ML DROPS 1 DROP EYE-BOTH (20:35)
[2022-02-05] MEDS: Melatonin 3 MG TABLET 6 MG PO (20:35)
[2022-02-05] MEDS: traZODone HCL 100 MG TABLET 250 MG PO (20:36)
[2022-02-05] MEDS: QUEtiapine Fumarate 25 MG TABLET 75 MG PO (20:41)
[2022-02-06 06:00] VITALS: BP 157/89; PULSE 89; RESP 14; TEMP 36.4; O2SAT 94
[2022-02-06 07:00] VITALS: BMI 31.4
[2022-02-06] MEDS: Finasteride 5 MG TABLET PO (09:16)
[2022-02-06] MEDS: Pramipexole Di-HCL 0.125 MG TABLET PO ×3 (09:16→20:57)
[2022-02-06] MEDS: Cholecalciferol (Vitamin D3) 10 MCG TABLET 20 MCG PO (09:16)
[2022-02-06] MEDS: QUEtiapine Fumarate 25 MG TABLET PO (09:16)
[2022-02-06] MEDS: Gabapentin 400 MG CAPSULE PO ×3 (09:17→20:57)
[2022-02-06] MEDS: amLODIPine Besylate 5 MG TABLET PO (09:17)
[2022-02-06] MEDS: Multivitamin TABLET 1 TAB PO (09:17)
[2022-02-06] MEDS: lisinopriL 20 MG TABLET PO (09:17)
[2022-02-06] MEDS: lamoTRIgine 100 MG TABLET 200 MG PO ×2 (09:17→20:56)
[2022-02-06] MEDS: LORazepam 0.5 MG TABLET PO (09:23)
[2022-02-06 11:19] VITALS: BP 138/67; PULSE 76; O2SAT 97
[2022-02-06] MEDS: QUEtiapine Fumarate 50 MG TABLET PO (13:23)
[2022-02-06] MEDS: Acetaminophen 325 MG TABLET 650 MG PO (13:23)
[2022-02-06] MEDS: polyethylene glycoL 3350 17 GM POWD.PACK PO (16:26)
--- NOTE | 2022-02-06 16:56 | P.PNPSI_ITS ---
Subjective Subjective Date of Service: 02/06/22 Reason For Visit: depression Subjective Notes: Conditional Voluntary Healthcare Proxy: No Guardianship: No Medical Problems Affecting Mental Status: No Interim History: pt accepted at [address] [facility] Somewhat discouraged regarding somewhat discou raged regarding his future denies self-harming thoughts feeling somewhat fragile fearful he could fail in rehab but has been doing well in physical therapy well on the unit and they have recommended rehab prior to return to nursing home setting patient aware of goals agreeable to [facility] referral mood support and encouragement Mental Status Exam Mental Status Exam Patient Appearance: Appropriate Patient Orientation: Person, Place, Time and Situation Level of Consciousness: Awake Patient Behavior: Cooperative Mood Description: Withdrawn, Anxious and Apprehensive Affect Description: Anxious, Labile and Apprehensive Ability to Follow Directions: Good Speech Pattern: Clear Memory Description: Episodic Impaired Hallucinations: None Delusions: Not Present Thought Process: Rumination and Linear Thought Content: positive for Circumstantial, negative for Suicidal Ideation or negative for Homicidal Ideation Depressive Symptoms: Increased Irritability Judgement: Fair Diagnostics Vital Signs (24Hr): Vital Signs - 24 hr 02/05/22 20:20 02/06/22 06:00 02/06/22 11:19 Temperature 97.4 F 97.6 F Pulse Rate 76 89 76 Respiratory Rate 18 14 Blood Pressure 138/67 157/89 H 138/67 Pulse Oximetry 97 94 97 BMI result Body Mass Index 31.4 Labs Results: 02/04/22 08:27 02/04/22 08:27 Imaging Radiology Impressions: ITS Impressions Hip X-Ray 01/05/22 16:00 IMPRESSION: Healed old fracture right femoral neck. The femoral neck screws that had been present in 2010 has been removed. No acute finding. Medications Medications Current Medications Acetaminophen (Acetaminophen 325 Mg Tablet) 650 mg PO Q6H PRN PRN Reason: Pain (Scale Score 1-3) Last Admin: 02/06/22 13:23 Dose: 650 mg Documented by: Al Hydroxide/Mg Hydroxide (Magnesium Hydrox/Alum Hydrox 30 Ml Oral.Susp) 30 ml PO Q6H PRN PRN Reason: Heartburn/Nausea Last Admin: 12/16/21 14:54 Dose: 30 ml Documented by: Albuterol Sulfate (Albuterol Sulfate 90 Mcg 8 Gm Inhaler) 2 puff INHALE Q6H PRN PRN Reason: Shortness Of Breath Last Admin: 12/24/21 21:33 Dose: 2 puff Documented by: Amlodipine Besylate (Amlodipine Besylate 5 Mg Tablet) 5 mg PO DAILY [facility]; Protocol Last Admin: 02/06/22 09:17 Dose: 5 mg Documented by: Artificial Tears (Artificial Tears 15 Ml Drops) 1 drop EYE-BOTH Q1H PRN PRN Reason: Dry Eye(S) Atenolol (Atenolol 25 Mg Tablet) 25 mg PO DAILY [facility]; Protocol Last Admin: 01/18/22 09:33 Dose: 25 mg Documented by: Docusate Sodium (Docusate Sodium 100 Mg Capsule) 100 mg PO BID PRN PRN Reason: Constipation Last Admin: 02/04/22 09:54 Dose: 100 mg Documented by: Finasteride (Finasteride 5 Mg Tablet) 5 mg PO DAILY [facility] Last Admin: 02/06/22 09:16 Dose: 5 mg Documented by: Gabapentin (Gabapentin 400 Mg Capsule) 400 mg PO TID [facility] Last Admin: 02/06/22 13:23 Dose: 400 mg Documented by: Hydrocortisone (Hydrocortisone 1 % Cream 28.35 Gm Tube) 1 appl TOPICAL BID [facility]; Protocol Last Admin: 02/06/22 09:17 Dose: Not Given Documented by: Hydroxyzine HCl (Hydroxyzine Hcl 25 Mg Tablet) 25 mg PO BEDTIME PRN PRN Reason: Anxiety Last Admin: 01/30/22 02:59 Dose: 25 mg Documented by: Ibuprofen (Ibuprofen 400 Mg Tablet) 400 mg PO Q6H PRN PRN Reason: Pain, Moderate (Pain Scale 4-6 Last Admin: 02/04/22 21:54 Dose: 400 mg Documented by: Lamotrigine (Lamotrigine 100 Mg Tablet) 200 mg PO BID [facility] Last Admin: 02/06/22 09:17 Dose: 200 mg Documented by: Latanoprost (Latanoprost 0.005 % Ophth No 2.5 Ml Drops) 1 drop EYE-BOTH BEDTIME [facility] Last Admin: 02/05/22 20:35 Dose: 1 drop Documented by: Lidocaine (Lidocaine 4 % Patch Adh..Patch) 1 patch TRANSDERMA DAILY [facility]; Protocol Last Admin: 02/06/22 09:17 Dose: Not Given Documented by: Lisinopril (Lisinopril 20 Mg Tablet) 20 mg PO DAILY [facility]; Protocol Last Admin: 02/06/22 09:17 Dose: 20 mg Documented by: Lorazepam (Lorazepam 0.5 Mg Tablet) 0.5 mg PO Q4H PRN PRN Reason: Anxiety Last Admin: 02/06/22 09:23 Dose: 0.5 mg Documented by: Magnesium Hydroxide (Milk Of Magnesia 30 Ml Oral.Susp) 30 ml PO Q72H PRN PRN Reason: Constipation Last Admin: 12/12/21 10:20 Dose: 30 ml Documented by: Magnesium Hydroxide (Milk Of Magnesia 30 Ml Oral.Susp) 30 ml PO DAILY PRN PRN Reason: Constipation Melatonin (Melatonin 3 Mg Tablet) 6 mg PO BEDTIME [facility] Last Admin: 02/05/22 20:35 Dose: 6 mg Documented by: Multivitamins/Vitamin C (Multivitamin Tablet) 1 tab PO DAILY [facility] Last Admin: 02/06/22 09:17 Dose: 1 tab Documented by: Nortriptyline HCl (Nortriptyline Hcl 25 Mg Capsule) 100 mg PO BEDTIME [facility] Last Admin: 02/05/22 20:35 Dose: 100 mg Documented by: Nystatin (Nystatin Cream 15 Gm Tube) 1 appl TOPICAL BID [facility]; Protocol Last Admin: 02/06/22 09:17 Dose: Not Given Documented by: Ondansetron HCl (Ondansetron Odt 4 Mg Tab.Rapdis) 4 mg TRANSLINGU Q8H PRN PRN Reason: Nausea and Vomiting Last Admin: 01/19/22 01:23 Dose: 4 mg Documented by: Polyethylene Glycol (Polyethylene Glycol 3350 17 Gm Powd.Pack) 17 gm PO DAILY PRN PRN Reason: Constipation Last Admin: 12/22/21 21:39 Dose: 17 gm Documented by: Polyethylene Glycol (Polyethylene Glycol 3350 17 Gm Powd.Pack) 17 gm PO DAILY@1600 [facility] Last Admin: 02/06/22 16:26 Dose: 17 gm Documented by: Pramipexole Dihydrochloride (Pramipexole Di-Hcl 0.125 Mg Tablet) 0.125 mg PO TID [facility] Last Admin: 02/06/22 13:23 Dose: 0.125 mg Documented by: Psyllium Hydrophilic Mucilloid (Psyllium Seed 3.4 Gm Powd.Pack) 3.4 gm PO DAILY [facility] Last Admin: 02/06/22 09:16 Dose: 3.4 gm Documented by: Quetiapine Fumarate (Quetiapine Fumarate 25 Mg Tablet) 25 mg PO BID PRN PRN Reason: Anxiety Last Admin: 02/02/22 06:18 Dose: 25 mg Documented by: Quetiapine Fumarate (Quetiapine Fumarate 50 Mg Tablet) 50 mg PO DAILY@1300 [facility] Last Admin: 02/06/22 13:23 Dose: 50 mg Documented by: Quetiapine Fumarate (Quetiapine Fumarate 25 Mg Tablet) 25 mg PO DAILY [facility] Last Admin: 02/06/22 09:16 Dose: 25 mg Documented by: Quetiapine Fumarate (Quetiapine Fumarate 25 Mg Tablet) 75 mg PO BEDTIME [facility] Last Admin: 02/05/22 20:41 Dose: 75 mg Documented by: Trazodone HCl (Trazodone Hcl 50 Mg Tablet) 50 mg PO BEDTIME PRN PRN Reason: Insomnia Last Admin: 01/21/22 01:18 Dose: 50 mg Documented by: Trazodone HCl (Trazodone Hcl 100 Mg Tablet) 250 mg PO BEDTIME [facility] Last Admin: 02/05/22 20:36 Dose: 250 mg Documented by: Vitamin D (Cholecalciferol (Vitamin D3) 10 Mcg Tablet) 20 mcg PO DAILY [facility] Last Admin: 02/06/22 09:16 Dose: 20 mcg Documented by: Allergies Allergies Allergy/AdvReac Type Severity Reaction Status Date / Time fentanyl [FENTANYL] Allergy Intermediate unknown Verified 05/22/21 11:43 Assessment & Plan Assessment & Plan (1) Major depressive disorder, recurrent severe without psychotic features: Status: Acute Code(s): F33.2 - Major depressive disorder, recurrent severe without psychotic features Assessment and Plan: Continue nortriptyline Seroquel recently cont Lamictal. CBT skills reviewed Increase Seroquel as needed continue physical therapy patient referred to [facility] has been accepted consider ssri but vilazadone lexapro not helpful continue encouragement does well with motivational interviewing 02/06/2022 Patient's mood somewhat fragile and anxious agreeable to transfer to [facility] for physical therapy prior to return to [facility]. Quetiapine change to 100 at bedtime nortriptyline 125 mg nortriptyline level 94 Patient response to motivation and encouragement no self-harming thoughts or behavior supportive listening regarding fears of the future (2) Cognitive and neurobehavioral dysfunction following brain injury: Status: Acute Code(s): G31.89 - Other specified degenerative diseases of nervous system; F09 - Unspecified mental disorder due to known physiological condition; S06.9X9S - Unspecified intracranial injury with loss of consciousness of unspecified duration, sequela (3) HTN (hypertension): Status: Acute Code(s): I10 - Essential (primary) hypertension I spent __60____ minutes with the patient and/or on the patient floor today, greater than?50% of which was spent counseling/coordinating care. Patient educated on: medication risk/benefits, therapeutic strategies, medical condition and other (phys tx ) Reason for contiued inpatient stay Substantial Risk for: inability to function and rapid decompensation
[2022-02-06 18:00] VITALS: BP 129/56; PULSE 78; RESP 18; TEMP 36.3; O2SAT 98
[2022-02-06 18:03] LABS: COVID-19 Test Negative (Negative)
[2022-02-06] MEDS: Ibuprofen 400 MG TABLET PO (19:57)
[2022-02-06] MEDS: QUEtiapine Fumarate 100 MG TABLET PO (20:56)
[2022-02-06] MEDS: Melatonin 3 MG TABLET 6 MG PO (20:56)
[2022-02-06] MEDS: Nortriptyline HCl 25 MG CAPSULE 125 MG PO (20:56)
[2022-02-06] MEDS: traZODone HCL 100 MG TABLET 250 MG PO (20:57)
[2022-02-06] MEDS: Nystatin Cream 15 GM TUBE 1 APPL TOPICAL (21:02)
[2022-02-06] MEDS: Hydrocortisone 1 % Cream 28.35 GM TUBE 1 APPL TOPICAL (21:02)
--- NOTE | 2022-02-06 22:28 | P.DS_ITS ---
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 DAILY 30 Days Qty: 30 2RF Protocol: Apply to: Apply to: lower back magnesium hydroxide [Milk of Magnesia] 400 mg/5 mL suspension 2,400 mg PO Q72H PRN (Reason: Constipation) 0RF Rx Instructions: PRN after 72hours no BM polyethylene glycol 3350 17 gram/dose powder 17 g PO DAILY PRN (Reason: Constipation) 0RF Rx Instructions: PRN once daily at 8am melatonin 5 mg Tablet 5 mg PO BEDTIME 30 Days Qty: 30 2RF quetiapine 25 mg Tablet 25 mg PO BID PRN (Reason: Anxiety) Qty: 60 0RF latanoprost 0.005 % drops 1 drp ophthalmic (eye) BEDTIME 30 Days Qty: 5 0RF Rx Instructions: Instill 1 drop in each eye daily in the evening acetaminophen 325 mg Tablet 650 mg PO Q6H PRN (Reason: Pain (Scale Score 1-3)) 30 Days Qty: 90 0RF lamotrigine 200 mg tablet 1 tab PO BID 30 Days Qty: 60 1RF gabapentin 400 mg Capsule 400 mg PO TID 30 Days Qty: 90 2RF ibuprofen 400 mg Tablet 400 mg PO Q6H PRN (Reason: Pain, Moderate (Pain Scale 4-6) 30 Days Qty: 60 0RF pramipexole 0.125 mg Tablet 0.125 mg PO TID 30 Days Qty: 90 2RF polyethylene glycol 3350 17 gram/dose powder 17 g PO DAILY@1600 30 Days Qty: 0 0RF Rx Instructions: daily@4pm artifi.tears(hypromellose)(PF) 0.3 % Drops 1 drp OPHTHALMIC (EYE) Q1H PRN (Reason: Dry Eye(S)) Qty: 10 0RF [id number] Tablet 1 tab PO DAILY Qty: 30 0RF Changed finasteride 5 mg tablet 5 mg PO DAILY Qty: 30 2RF Discontinued amlodipine 10 mg tablet 10 mg PO DAILY 30 Days Qty: 30 1RF psyllium husk [Metamucil] 0.4 gram capsule 0.4 g PO DAILY 0RF lisinopril 40 mg tablet 40 mg PO DAILY 30 Days Qty: 30 2RF miconazole nitrate 2 % Cream 1 appl TOPICAL BID 0RF hydrocortisone 1 % Cream 1 appl TOPICAL Q4H PRN (Reason: RECTAL IRRITATION) 0RF albuterol sulfate 90 mcg/actuation Hfa Aerosol Inhaler 2 puff INHALATION Q6H PRN (Reason: Shortness Of Breath) 0RF lorazepam 1 mg Tablet 1 mg PO BEDTIME 30 Days Qty: 30 2RF Trintellix 10 mg Tablet 10 mg PO DAILY@1700 30 Days Qty: 30 2RF nortriptyline 10 mg Capsule 30 mg PO BEDTIME Qty: 90 2RF cholecalciferol (vitamin D3) [Vitamin D3] 10 mcg (400 unit) Tablet 20 mcg PO DAILY Qty: 30 2RF quetiapine 50 mg Tablet 50 mg PO BEDTIME Qty: 30 2RF trazodone 150 mg tablet 1 tab PO BEDTIME Qty: 30 1RF lorazepam 0.5 mg tablet 0.5 mg PO QID MDD 2 mg PRN (Reason: Anxiety) 0RF Discharge Orders: Discharge Order (Routine); Ordered 02/07/22 Ordered By: Addy Haskins Diet: advance to usual diet Activity on Discharge: as per PT Stand Alone Forms: Patient Portal Discharge page, Community Support Care Plan Goals: participate in physical therapy return to [facility] maintain safety no self harm improved mood improved ability to transfer to return to senior care Health Concerns: balance and gait disturbance depression Plan of Treatment: rehab setting [facility] medication physical therapy psychotherapy after return to [facility] Assessment: improved mood needs encoragement physical therapy goal to transfer with one assist Discharge Date/Time: 02/07/22 11:00
[2022-02-07 06:00] VITALS: BP 164/82; PULSE 78; RESP 15; TEMP 36.3; O2SAT 96
[2022-02-07] MEDS: Multivitamin TABLET 1 TAB PO (08:25)
[2022-02-07] MEDS: QUEtiapine Fumarate 25 MG TABLET PO (08:26)
[2022-02-07] MEDS: Cholecalciferol (Vitamin D3) 10 MCG TABLET 20 MCG PO (08:26)
[2022-02-07] MEDS: Finasteride 5 MG TABLET PO (08:26)
[2022-02-07] MEDS: amLODIPine Besylate 5 MG TABLET PO (08:26)
[2022-02-07] MEDS: Pramipexole Di-HCL 0.125 MG TABLET PO (08:26)
[2022-02-07] MEDS: Gabapentin 400 MG CAPSULE PO (08:26)
[2022-02-07] MEDS: lamoTRIgine 100 MG TABLET 200 MG PO (08:26)
[2022-02-07] MEDS: lisinopriL 20 MG TABLET PO (08:26)
[2022-02-07] MEDS: Acetaminophen 325 MG TABLET 650 MG PO (09:30)
[2022-02-07] MEDS: LORazepam 0.5 MG TABLET PO (09:30)
[2022-02-07 10:25] VITALS: BP 129/56; PULSE 78; O2SAT 98
== END 2022-02-07 11:00 | DRG 885 ==
LOC: HO.ED 12-10 20:03 → HO.PGERI 12-10 20:35
PROVIDERS: Internal Medicine; Psychiatry & Neurology Psychiatry; Social Worker; Admitting Provider Psychiatry & Neurology Psychiatry; Emergency Provider Emergency Medicine; Visit Provider Psychiatry & Neurology Psychiatry
DX: F33.2 Major depressive disorder, recurrent severe without psychotic features (principal); R45.851 Suicidal ideations; I95.9 Hypotension, unspecified; G31.89 Other specified degenerative diseases of nervous system; F10.21 Alcohol dependence, in remission; I10 Essential (primary) hypertension; Z99.3 Dependence on wheelchair; Z87.820 Personal history of traumatic brain injury; Z88.5 Allergy status to narcotic agent; Z79.899 Other long term (current) drug therapy
CPT/HCPCS: 36415; 73502; 80053; 80175; 80307; 80335; 82947; 85025; 87635; 93005; 97162; 97530; 99285

== ENCOUNTER 2022-02-25 21:24 | Emergency (ER) | payer MEDICARE, MEDICAID, SELFPAY ==
[2022-02-25 22:07] VITALS: BP 130/80; PULSE 80; O2SAT 99
[2022-02-25 22:08] VITALS: BP 128/64; PULSE 83; RESP 16; TEMP 36.8; O2SAT 96; BMI 30.2
--- NOTE | 2022-02-25 22:12 | ED_ITS ---
HPI - Psych General Chief Complaint: Psychiatric Symptoms Stated Complaint: CRISIS Time Seen by Provider: 02/25/22 22:12 Source: patient and EMS Mode of arrival: EMS Limitations: no limitations History of Present Illness HPI Narrative: 66-year-old male presents via EMS for suicidal statement and psychiatric evaluat ion. Patient presents from a longterm for suicidal statement, alcohol abuse, and plan. MD complaint: suicidal ideation and alcohol abuse Onset (ago): year(s) Duration: constant History of same: Yes Relieving factors: none Exacerbating factors: alcohol Context: recent alcohol abuse Associated psychiatric symptoms: depression and suicidal ideation Associated symptoms: denies other symptoms Treatments prior to arrival: none If self harm: admits thoughts of self harm and has plan Related Data Home Medications Medication Instructions Recorded Confirmed acetaminophen 325 mg tablet mg PO 02/26/22 albuterol sulfate 90 mcg/actuation INHALATION 02/26/22 aerosol inhaler amlodipine 10 mg tablet 1 tab PO DAILY 02/26/22 02/26/22 amlodipine 5 mg tablet 1 tab PO DAILY 02/26/22 02/26/22 brexpiprazole 3 mg tablet (Rexulti) 1 tab PO DAILY 02/26/22 02/26/22 cholecalciferol (vitamin D3) 10 2 tab PO DAILY 02/26/22 02/26/22 mcg (400 unit) tablet (Vitamin D3) docusate sodium 100 mg capsule 1 cap PO BID 02/26/22 02/26/22 escitalopram oxalate 10 mg tablet 1 tab PO DAILY 02/26/22 02/26/22 finasteride 5 mg tablet 1 tab PO DAILY 02/26/22 02/26/22 gabapentin 400 mg capsule 1 cap PO TID 02/26/22 02/26/22 ibuprofen 400 mg tablet 1 tab PO Q6H PRN 02/26/22 02/26/22 lamotrigine 100 mg tablet 1 tab PO BID 02/26/22 02/26/22 lamotrigine 200 mg tablet 1 tab PO BID 02/26/22 02/26/22 latanoprost 0.005 % eye drops drp OPHTHALMIC (EYE) 02/26/22 lisinopril 10 mg tablet 1 tab PO DAILY 02/26/22 02/26/22 lisinopril 20 mg tablet 1 tab PO DAILY 02/26/22 02/26/22 lorazepam 0.5 mg tablet mg PO 02/26/22 magnesium hydroxide 400 mg/5 mL ml PO 02/26/22 oral suspension (Milk of Magnesia) melatonin 5 mg tablet 1 tab PO BEDTIME 02/26/22 02/26/22 mirtazapine 45 mg tablet 1 tab PO BEDTIME 02/26/22 02/26/22 nortriptyline 25 mg capsule cap PO 02/26/22 omeprazole 20 mg capsule,delayed 1 cap PO BID 02/26/22 02/26/22 release peg [id number] 1 drp OPHTHALMIC (EYE) 02/26/22 %-0.2 %-0.2 % eye drops (Artificial Tears ([id number])) polyethylene glycol 3350 17 17 g PO DAILY 02/26/22 02/26/22 gram/dose oral powder pramipexole 0.125 mg tablet mg PO 02/26/22 psyllium husk 0.52 gram capsule g PO 02/26/22 (Natural Fiber Laxative) psyllium seed (sugar) oral powder PO 02/26/22 (Natural Fiber Laxative (sugar)) quetiapine 100 mg tablet 1 tab PO BEDTIME 02/26/22 02/26/22 trazodone 100 mg tablet 1 tab PO BEDTIME 02/26/22 02/26/22 trazodone 150 mg tablet 1 tab PO BEDTIME 02/26/22 02/26/22 vortioxetine 10 mg tablet 1 tab PO DAILY 02/26/22 02/26/22 (Trintellix) Allergies Allergy/AdvReac Type Severity Reaction Status Date / Time fentanyl [FENTANYL] Allergy Intermediate unknown Verified 05/22/21 11:43 Review of Systems Review of Systems: Constitutional: No Fever, No Chills ENT/Mouth: No Ear Pain, No Nasal Congestion, No sore throat Eyes: No Eye Pain, No Swelling, No Redness Cardiovascular: No Chest Pain, No SOB Respiratory: No Cough, No Sputum, No Dyspnea Gastrointestinal: No Nausea, No Vomiting, No Diarrhea, No Hematochezia, No Melena Genitourinary: No Dysuria, No Urinary Frequency, No Hematuria Musculoskeletal: No Myalgias Skin: No Skin Lesions, No rash Neuro: No Weakness, No Numbness, No Paresthesias, No Dizziness, No Headache Psych: No Anxiety, positive Depression, positive SI Heme/Lymph: No Lymphadenopathy Endocrine: No Polyuria, No Polydipsia Yes all other systems are reviewed and are negative [facility] Past Medical History Attestation statement: The following information was validated with the patient. Source: old records reviewed Medical History Alcohol use disorder, severe, in sustained remission Cognitive and neurobehavioral dysfunction following brain injury Hernia HTN (hypertension) Major depressive disorder, recurrent Major depressive disorder, recurrent severe without psychotic features Subdural hematoma TBI (traumatic brain injury) Surgical History H/O brain surgery H/O umbilical hernia repair History of hip replacement S/P cholecystectomy Social History Social History Household Members: Other Household Members Other:: Pt. lives in a longterm. Housing: Other Housing Other:: longterm Do you presently have visiting nurse or other home services: Yes Alcohol intake: never Patient Tobacco Use Status: Never used Tobacco e-Cigarette/Vaping Use: Never Used Second Hand Smoke Exposure: No Advance Directives: No Advance Directives Date on File: 05/27/19 service: No Sexual orientation: Straight/Heterosexual Physical Exam Vital Signs: Vital Signs: Last Vital Signs Temp 98.2 F 02/25/22 22:08 Pulse 71 02/26/22 02:28 Resp 18 02/26/22 02:28 BP 157/79 H 02/26/22 02:28 Pulse Ox 97 02/26/22 02:28 BMI result Body Mass Index 30.2 Appearance: Alert. Oriented X3. Flat affect. Eyes: Pupils equal, round and reactive to light. ENT: Pharynx normal. Moist mucous membranes. Neck: Normal inspection. Neck supple. CVS: Normal heart rate and rhythm. Pulses normal. Respiratory: No respiratory distress. Breath sounds normal. Abdomen: Soft and nontender. Skin: Skin warm and dry. Normal skin color. Normal skin turgor. Extremities: No lower extremity edema. Moves all extremities. Wheelchair- bound. Neuro: No motor deficit. No sensory deficit. Cranial nerves 2-12 intact. Course Course Course Narrative: 66-year-old male with major depressive disorder, cognitive and neurobehavioral dysfunction status post TBI, hypertension presents from longterm with reports of a suicidal statement and alcohol abuse. Patient states that he has multiple plans but does not want to discuss them, stated that he was discharged on 02/06/2022 after being admitted on 10/02/2021 to . He stated that he felt really well when he left on the however his thoughts regarding suicide have gotten out of control. Will order labs, EtOH, and crisis consult. 00:20 labs pending. COVID is negative. 00:53 CBC indicates H&H of 13.9/41.6 which is unremarkable. ETOH less than 10. COVID is negative. 01:26 BUN 29. Order for 2 L of normal saline for dehydration. No AODRE his creatinine is 1.2. 22 gauge iv started to the left lower forearm by this [employer]CH[employer]ICAL OFFICER. 02:32 repeat BUN after fluid resuscitation. Patient medically cleared. Physician observation started at this time. MDM - Psych Differential Diagnosis Differential diagnosis: Likely acute psychosis, suicidal ideation, depression, drug-induced psychotic disorder and alcohol intoxication Medical Records Attestation: I reviewed the patient's medical records. Lab Data Attestation: I reviewed the patient's lab results. Result diagrams: 02/26/22 00:23 02/26/22 00:23 Labs: Lab Results 02/25/22 02/26/22 02/26/22 Range/Units 22:47 00:23 00:23 WBC 8.3 (4.8-10.8) X10*3/uL RBC 4.33 L (4.60-5.80) X10*6/uL Hgb 13.9 L (14.0-18.0) g/dl Hct 41.6 L (42.0-52.0) % MCV 96.1 (80.0-98.0) fL MCH 32.1 (27.0-33.0) pg MCHC 33.4 (31.0-36.0) g/dl RDW 11.6 (11.0-16.0) % Plt Count 211 (160-400) X10*3/uL MPV 9.5 (9.4-12.4) fL Immature Gran % (Auto) 1.0 H (0.0-0.4) % Neut % (Auto) 65.3 (45-73) % Lymph % (Auto) 21.5 (20-40) % [place] % (Auto) 8.0 (2-11) % Eos % (Auto) 3.7 (0-4) % Baso % (Auto) 0.5 (0-2) % Lymph # (Auto) 1.8 (1.2-4.9) X10*3/uL [place] # (Auto) 0.7 (0.1-1.2) X10*3/uL Eos # (Auto) 0.3 (0.0-0.4) X10*3/uL Baso # (Auto) 0.0 (0.0-0.2) X10*3/uL Abs Immat Gran (auto) 0.08 H (0.00-0.03) X10*3/uL Absolute Neuts (auto) 5.5 (2.0-8.3) x10*3/uL Absolute Nucleated RBC 0.000 (0.0-0.012) X10*3/uL Nucleated RBC % (auto) 0.0 (0.0-0.2) /100WBC Sodium 140 (135-145) mmol/L Potassium 4.6 (3.3-5.1) mmol/L Chloride 105 (96-108) mmol/L Carbon Dioxide 26 (22-29) mmol/L Anion Gap 14 (12-20) BUN 29 H D (9-16) mg/dL Creatinine 1.20 (0.5-1.4) mg/dL Estim Creat Clear Calc 77.6 Estimated GFR > 60 Random Glucose 84 (60-115) mg/dL Calcium 9.9 (8.4-10.2) mg/dL Total Bilirubin 0.4 (0.0-1.0) mg/dL AST 71 H (5-37) U/L ALT 120 H (0-40) U/L Alkaline Phosphatase 93 (39-117) U/L Total Protein 7.2 (6.5-8.0) g/dL Albumin 4.4 (3.5-5.0) g/dL Ethyl Alcohol mg/dL COVID-19 ([facility]) Negative (Negative) COVID-19 Clin Com See Note 02/26/22 Range/Units 00:23 WBC (4.8-10.8) X10*3/uL RBC (4.60-5.80) X10*6/uL Hgb (14.0-18.0) g/dl Hct (42.0-52.0) % MCV (80.0-98.0) fL MCH (27.0-33.0) pg MCHC (31.0-36.0) g/dl RDW (11.0-16.0) % Plt Count (160-400) X10*3/uL MPV (9.4-12.4) fL Immature Gran % (Auto) (0.0-0.4) % Neut % (Auto) (45-73) % Lymph % (Auto) (20-40) % [place] % (Auto) (2-11) % Eos % (Auto) (0-4) % Baso % (Auto) (0-2) % Lymph # (Auto) (1.2-4.9) X10*3/uL [place] # (Auto) (0.1-1.2) X10*3/uL Eos # (Auto) (0.0-0.4) X10*3/uL Baso # (Auto) (0.0-0.2) X10*3/uL Abs Immat Gran (auto) (0.00-0.03) X10*3/uL Absolute Neuts (auto) (2.0-8.3) x10*3/uL Absolute Nucleated RBC (0.0-0.012) X10*3/uL Nucleated RBC % (auto) (0.0-0.2) /100WBC Sodium (135-145) mmol/L Potassium (3.3-5.1) mmol/L Chloride (96-108) mmol/L Carbon Dioxide (22-29) mmol/L Anion Gap (12-20) BUN (9-16) mg/dL Creatinine (0.5-1.4) mg/dL Estim Creat Clear Calc Estimated GFR Random Glucose (60-115) mg/dL Calcium (8.4-10.2) mg/dL Total Bilirubin (0.0-1.0) mg/dL AST (5-37) U/L ALT (0-40) U/L Alkaline Phosphatase (39-117) U/L Total Protein (6.5-8.0) g/dL Albumin (3.5-5.0) g/dL Ethyl Alcohol < 10 mg/dL COVID-19 ([facility]) (Negative) COVID-19 Clin Com Discharge Plan Discharge Clinical Impression: Major depressive disorder, recurrent severe without psychotic features, Cognitive and neurobehavioral dysfunction following brain injury, Acute dehydration Patient Disposition: Still a Patient Prescriptions: No Action latanoprost 0.005 % drops ophthalmic (eye) 0RF acetaminophen 325 mg tablet PO 0RF lamotrigine 200 mg tablet 1 tab PO BID 0RF lisinopril 20 mg tablet 1 tab PO DAILY 0RF gabapentin 400 mg capsule 1 cap PO TID 0RF amlodipine 5 mg tablet 1 tab PO DAILY 0RF quetiapine 100 mg tablet 1 tab PO BEDTIME 0RF nortriptyline 25 mg capsule PO 0RF lorazepam 0.5 mg tablet PO 0RF magnesium hydroxide [Milk of Magnesia] 400 mg/5 mL suspension PO 0RF trazodone 100 mg tablet 1 tab PO BEDTIME 0RF amlodipine 10 mg tablet 1 tab PO DAILY 0RF trazodone 150 mg tablet 1 tab PO BEDTIME 0RF lisinopril 10 mg tablet 1 tab PO DAILY 0RF ibuprofen 400 mg tablet 1 tab PO Q6H PRN (Reason: Pain (Scale Score 4-6)) 0RF pramipexole 0.125 mg tablet PO 0RF docusate sodium 100 mg capsule 1 cap PO BID 0RF omeprazole 20 mg capsule,delayed release(DR/EC) 1 cap PO BID 0RF mirtazapine 45 mg tablet 1 tab PO BEDTIME 0RF polyethylene glycol 3350 17 gram/dose powder 17 g PO DAILY 0RF albuterol sulfate 90 mcg/actuation HFA aerosol inhaler inhalation 0RF cholecalciferol (vitamin D3) [Vitamin D3] 10 mcg (400 unit) tablet 2 tab PO DAILY 0RF lamotrigine 100 mg tablet 1 tab PO BID 0RF finasteride 5 mg tablet 1 tab PO DAILY 0RF Artificial Tears([id number]) 1-0.2-0.2 % drops ophthalmic (eye) 0RF escitalopram oxalate 10 mg tablet 1 tab PO DAILY 0RF psyllium husk [Natural Fiber Laxative] 0.52 gram capsule PO 0RF Natural Fiber Laxative (sugar) Powder PO 0RF melatonin 5 mg tablet 1 tab PO BEDTIME 0RF Trintellix 10 mg tablet 1 tab PO DAILY 0RF Rexulti 3 mg tablet 1 tab PO DAILY 0RF
[2022-02-25 23:06] LABS: COVID-19 Test Negative (Negative); IDNOW Serial# 55D5AD1C
[2022-02-25 23:48] VITALS: BP 143/70; PULSE 78; RESP 20; O2SAT 96
[2022-02-26 00:29] LABS: Basophils Percent Auto 0.5 % (0-2); Eosinophils Absolute Auto 0.3 X10*3/uL (0.0-0.4); Eosinophils Percent Auto 3.7 % (0-4); Hematocrit 41.6 % (42.0-52.0); Hemoglobin 13.9 g/dl (14.0-18.0); Imm Gran Abs Auto 0.08 X10*3/uL (0.00-0.03); Lymphocytes Absolute Auto 1.8 X10*3/uL (1.2-4.9); Lymphocytes Percent Auto 21.5 % (20-40); MANUAL DIFF FLAG NO; Mean Corpuscular HGB Conc 33.4 g/dl (31.0-36.0); Mean Corpuscular Hemoglobin 32.1 pg (27.0-33.0); Mean Corpuscular Volume 96.1 fL (80.0-98.0); Mean Platelet Volume 9.5 fL (9.4-12.4); Monocytes Absolute Auto 0.7 X10*3/uL (0.1-1.2); Neutrophils Absolute Auto 5.5 x10*3/uL (2.0-8.3); Neutrophils Percent Auto 65.3 % (45-73); Platelet Count 211 X10*3/uL (160-400); Red Blood Count 4.33 X10*6/uL (4.60-5.80); Red Cell Distribution Width 11.6 % (11.0-16.0); White Blood Count 8.3 X10*3/uL (4.8-10.8)
[2022-02-26 00:48] LABS: Ethanol < 10 mg/dL
[2022-02-26 01:01] LABS: Alanine Aminotransferase 120 U/L (0-40); Albumin Level 4.4 g/dL (3.5-5.0); Alkaline Phosphatase 93 U/L (39-117); Anion Gap 14 (12-20); Aspartate Amino Transferase 71 U/L (5-37); Bilirubin Total 0.4 mg/dL (0.0-1.0); Blood Urea Nitrogen 29 mg/dL (9-16); Calcium 9.9 mg/dL (8.4-10.2); Carbon Dioxide 26 mmol/L (22-29); Chloride 105 mmol/L (96-108); Creatinine Clr Calc Pharmacy 77.6; Estimated Glomerular Filt Rate > 60; Glucose Random 84 mg/dL (60-115); Potassium 4.6 mmol/L (3.3-5.1); Sodium 140 mmol/L (135-145); Total Protein 7.2 g/dL (6.5-8.0)
[2022-02-26] MEDS: Acetaminophen 325 MG TABLET 650 MG PO (01:20)
[2022-02-26] MEDS: 0.9 % Sodium Chloride 1,000 ML 999 ML IVCONT ×2 (01:26→02:33)
[2022-02-26 02:28] VITALS: BP 157/79; PULSE 71; RESP 18; O2SAT 97
[2022-02-26] MEDS: lamoTRIgine 100 MG TABLET PO (03:06)
[2022-02-26] MEDS: lamoTRIgine 100 MG TABLET 200 MG PO ×2 (03:06→21:32)
[2022-02-26] MEDS: traZODone HCL 100 MG TABLET PO ×2 (03:07→21:33)
[2022-02-26] MEDS: Gabapentin 400 MG CAPSULE PO ×3 (03:07→21:33)
[2022-02-26] MEDS: Mirtazapine 15 MG TABLET 45 MG PO (03:07)
[2022-02-26] MEDS: Omeprazole 20 MG CAPSULE.DR PO (03:07)
[2022-02-26] MEDS: Docusate Sodium 100 MG CAPSULE PO ×3 (03:07→21:33)
[2022-02-26] MEDS: QUEtiapine Fumarate 100 MG TABLET PO ×2 (03:39→21:33)
[2022-02-26 04:00] LABS: Anion Gap 13 (12-20); Blood Urea Nitrogen 26 mg/dL (9-16); Calcium 8.4 mg/dL (8.4-10.2); Carbon Dioxide 20 mmol/L (22-29); Chloride 111 mmol/L (96-108); Creatinine Clr Calc Pharmacy 91.4; Estimated Glomerular Filt Rate > 60; Glucose Random 85 mg/dL (60-115); Potassium 4.6 mmol/L (3.3-5.1); Sodium 139 mmol/L (135-145)
--- NOTE | 2022-02-26 05:03 | PC.NURSE ---
Patient alert and oriented x 3. pleasant man. Patient denies SI/HI. Patient c/o pain in hip medicated with tylenol with relief. Patient is retaining 759cc in bladder with no urge to void Dr. Alonzo notified ordered straight cath. Patient changed into safety clothing. Will continue to monitor.
[2022-02-26 05:51] VITALS: BP 148/72; PULSE 68; RESP 18; O2SAT 96
[2022-02-26 06:04] LABS: Amphetamine Screen Urine Not Detected (Not Detect); Barbiturates, Urine Not Detected (Not Detect); Benzodiazepines Screen Urine Not Detected (Not Detect); Cannabinoid Screen Urine Not Detected (Not Detect); Cocaine Screen Urine Not Detected (Not Detect); Fentanyl, urine POSITIVE (Not Detect); Opiate Screen Urine Not Detected (Not Detect); Phencyclidine Screen Urine Not Detected (Not Detect)
--- NOTE | 2022-02-26 06:28 | MHC.CARE ---
Smart Sheet submitted
[2022-02-26 07:27] VITALS: BP 177/84; PULSE 64; RESP 12; O2SAT 99
--- NOTE | 2022-02-26 11:15 | PC.NURSE ---
calm and cooperative, nad, pleasant, sitter at bedside, pharmacy suggested that we not give meds as they wanted to confirm the meds w the custodial rn, report given to N and they are evaluating now
[2022-02-26] MEDS: LORazepam 0.5 MG TABLET PO (13:59)
[2022-02-26] MEDS: lisinopriL 20 MG TABLET PO (14:10)
[2022-02-26] MEDS: Pramipexole Di-HCL 0.125 MG TABLET PO (14:10)
[2022-02-26] MEDS: amLODIPine Besylate 5 MG TABLET PO (14:11)
[2022-02-26 14:21] VITALS: BP 182/100; PULSE 84; RESP 12; TEMP 36.6; O2SAT 98
[2022-02-26] MEDS: LORazepam 1 MG TABLET 2 MG PO (17:59)
[2022-02-26 18:32] VITALS: BP 155/87; PULSE 81; RESP 18; TEMP 36.4; O2SAT 99
[2022-02-26] MEDS: Nortriptyline HCl 25 MG CAPSULE 125 MG PO (21:33)
[2022-02-26] MEDS: Melatonin 3 MG TABLET 6 MG PO (21:33)
[2022-02-26 21:59] VITALS: BP 149/77; PULSE 73; RESP 18; TEMP 36.4; O2SAT 99
[2022-02-27] VITALS (9 sets, daily range): BP systolic 106–147; BP diastolic 66–85; PULSE 68–81; RESP 14–18; TEMP 36.1–36.8; O2SAT 97–100
[2022-02-27] MEDS: Docusate Sodium 100 MG CAPSULE PO (10:20)
[2022-02-27] MEDS: QUEtiapine Fumarate 25 MG TABLET PO (10:20)
[2022-02-27] MEDS: Multivitamin TABLET 1 TAB PO (10:20)
[2022-02-27] MEDS: lamoTRIgine 100 MG TABLET 200 MG PO (10:20)
[2022-02-27] MEDS: Gabapentin 400 MG CAPSULE PO ×2 (10:20→15:42)
[2022-02-27] MEDS: lisinopriL 20 MG TABLET PO (10:20)
[2022-02-27] MEDS: Finasteride 5 MG TABLET PO (10:20)
[2022-02-27] MEDS: amLODIPine Besylate 5 MG TABLET PO (10:21)
[2022-02-27] MEDS: polyethylene glycoL 3350 17 GM POWD.PACK PO (10:21)
[2022-02-27] MEDS: LORazepam 0.5 MG TABLET PO ×3 (11:01→19:24)
[2022-02-27] MEDS: Cholecalciferol (Vitamin D3) 10 MCG TABLET PO (11:48)
[2022-02-27] MEDS: Pramipexole Di-HCL 0.125 MG TABLET PO ×2 (11:50→16:49)
--- NOTE | 2022-02-27 15:32 | MHC.CM.ED ---
Asked to assist ED RN with transportation of pt to home: CM not formally consulted by MD. Pt resides in a senior living and was medically cleared by crisis to return to his home. Call placed to Daniel, Director of program at [phone]. Inquired on staff coming to transport pt back to home. Per Daniel, she is new to the role and wasn't certain on how pt was returning. She states she will contact her colleague and ask. Daniel's contact information given to ED RN for further transportation needs.
[2022-02-27] MEDS: QUEtiapine Fumarate 50 MG TABLET PO (15:42)
--- NOTE | 2022-02-27 19:13 | PC.NURSE ---
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
[2022-02-27] MEDS: Ibuprofen 400 MG TABLET PO (19:25)
== END 2022-02-27 19:57 | disposition home or self-care (01) ==
PROVIDERS: Nurse Practitioner Family; Emergency Provider Emergency Medicine Emergency Medical Services; PCP Internal Medicine
DX: R45.851 Suicidal ideations (principal); F32.A Depression, unspecified; F10.10 Alcohol abuse, uncomplicated; Y90.0 Blood alcohol level of less than 20 mg/100 ml; Z20.822 Contact with and (suspected) exposure to COVID-19; G31.89 Other specified degenerative diseases of nervous system; I10 Essential (primary) hypertension; Z87.820 Personal history of traumatic brain injury; Z79.899 Other long term (current) drug therapy
CPT/HCPCS: 36415; 80048; 80053; 80307; 82077; 85025; 87635; 96360; 99285

== ENCOUNTER 2022-03-07 13:01 | Outpatient (REF) | payer MEDICARE, MEDICAID, SELFPAY ==
--- NOTE | ~2022-03-07 | US_ITS ---
EXAMINATION: US ABDOMEN COMPLETE CLINICAL INFORMATION: Alcoholic cirrhosis. COMPARISON: Ultrasound abdomen complete 10/17/2020 and 06/07/2018. TECHNIQUE: Real-time imaging of the abdominal viscera. FINDINGS: PANCREAS: Not well visualized due to bowel gas ABDOMINAL AORTA: Not well visualized due to bowel gas INFERIOR VENA CAVA: Not well visualized due to bowel gas LIVER: Not well visualized. Liver echotexture is increased and heterogeneous. The contour of the liver is irregular suggestive of cirrhosis. No focal liver lesion or biliary duct dilatation is seen. GALLBLADDER: Surgically absent. COMMON BILE DUCT: Normal in caliber measuring 0.2 cm in diameter. RIGHT KIDNEY: There is a 2 x 1.4 x 1.4 cm cyst in the midpole. No hydronephrosis or renal calculi. The kidney measures 12.5 cm in maximum dimension. LEFT KIDNEY: There is a 2.2 x 2.2 x 2.6 cm cyst in the mid to lower pole. No hydronephrosis or renal calculi. The kidney measures 12.4 cm in maximum dimension. SPLEEN: Normal. The spleen measures 11.9 cm in maximum dimension. FREE FLUID: None. US/US abdomen complete IMPRESSION: Limited exam. Cirrhotic-appearing liver. No focal liver lesion seen. Bilateral renal cysts.
[2022-03-07 14:21] LABS: Prothrombin Time 11.1 SEC (9.9-13.0)
[2022-03-10 13:17] LABS: Alpha Fetoprotein 2.7 ng/mL (<6.1)
== END 2022-03-07 13:02 | disposition home or self-care (01) ==
LOC: HO.US 13:01
PROVIDERS: Visit Provider Internal Medicine
DX: K70.30 Alcoholic cirrhosis of liver without ascites (principal)
CPT/HCPCS: 36415; 76700; 82105; 85610

== ENCOUNTER 2022-03-14 19:04 | Emergency (ER) | payer MEDICARE, MEDICAID, SELFPAY ==
[2022-03-14 19:17] VITALS: BP 138/86; BP 147/77; PULSE 93; PULSE 98; RESP 14; TEMP 36.4; O2SAT 97; O2SAT 98; BMI 28.8
--- NOTE | 2022-03-14 19:33 | ED.PSYCH ---
HPI - Psych General Chief Complaint: Psychiatric Symptoms Stated Complaint: SI Time Seen by Provider: 03/14/22 19:30 History of Present Illness HPI Narrative: patient is a 66-year-old male lives in a long term. Positive EtOH at lunch. Mentioned to someone at the long term that he wants to kill himself. Patient currently denies any suicidal homicidal ideation. Sent in for further evaluation. History depression in the past history of hypertension history of CVA in the past. Patient from long term. Immunized for COVID Related Data Home Medications Medication Instructions Recorded Confirmed amlodipine 5 mg tablet 1 tab PO DAILY 02/26/22 03/14/22 cholecalciferol (vitamin D3) 10 1 tab PO DAILY 02/26/22 03/14/22 mcg (400 unit) tablet (Vitamin D3) docusate sodium 100 mg capsule 1 cap PO BID 02/26/22 03/14/22 finasteride 5 mg tablet 1 tab PO DAILY 02/26/22 03/14/22 gabapentin 400 mg capsule 1 cap PO TID 02/26/22 03/14/22 ibuprofen 400 mg tablet 1 tab PO Q6H PRN 02/26/22 03/14/22 lamotrigine 200 mg tablet 1 tab PO BID 02/26/22 03/14/22 latanoprost 0.005 % eye drops 1 drp OPHTHALMIC (EYE) DAILY 02/26/22 03/14/22 lisinopril 20 mg tablet 1 tab PO DAILY 02/26/22 03/14/22 lorazepam 0.5 mg tablet 0.5 mg PO Q6H PRN 02/26/22 03/14/22 melatonin 5 mg tablet 1 tab PO BEDTIME 02/26/22 03/14/22 nortriptyline 25 mg capsule 125 mg PO BEDTIME 02/26/22 03/14/22 polyethylene glycol 3350 17 17 g PO DAILY 02/26/22 03/14/22 gram/dose oral powder pramipexole 0.125 mg tablet 0.125 mg PO TID 02/26/22 03/14/22 psyllium husk 3.4 gram/5.4 gram 1 tbsp PO DAILY 02/26/22 03/14/22 oral powder (Metamucil) quetiapine 100 mg tablet 1 tab PO BEDTIME 02/26/22 03/14/22 quetiapine 25 mg tablet 25 mg PO DAILY 02/26/22 03/14/22 quetiapine 50 mg tablet 50 mg PO DAILY@1300 02/26/22 03/14/22 trazodone 100 mg tablet 1 tab PO BEDTIME 02/26/22 03/14/22 trazodone 150 mg tablet 1 tab PO BEDTIME 02/26/22 03/14/22 Atarax 25 tab PO NEEDED PRN 03/14/22 03/14/22 Centrum Silver 1 tab PO ONCE 03/14/22 03/14/22 acetaminophen 325 mg tablet 650 mg PO NEEDED 03/14/22 03/14/22 albuterol sulfate 90 mcg/actuation 180 mcg INHALATION NEEDED 03/14/22 03/14/22 aerosol inhaler clotrimazole 1 % topical solution 1 appl TOPICAL NEEDED 03/14/22 03/14/22 famotidine 20 mg tablet 1 tab PO BID 03/14/22 03/14/22 famotidine 20 mg tablet 1 tab PO BID 03/14/22 03/14/22 magnesium hydroxide 400 mg/5 mL 2,400 mg PO NEEDED 03/14/22 03/14/22 oral suspension (Milk of Magnesia) miconazole nit 0.25 %-zinc ox 15 2 appl TOPICAL NEEDED 03/14/22 03/14/22 %-petrolatum 81.35 % topical ointment miconazole nit 0.25 %-zinc ox 15 2 appl TOPICAL NEEDED 03/14/22 03/14/22 %-petrolatum 81.35 % topical ointment nystatin 100,000 unit/gram topical 1 applic TOPICAL BID 03/14/22 03/14/22 cream peg [id number] 1 1 drp OPHTHALMIC (EYE) NEEDED 03/14/22 03/14/22 %-0.2 %-0.2 % eye drops (Artificial Tears ([id number])) vortioxetine 10 mg tablet 1 tab PO DAILY 03/14/22 03/14/22 (Trintellix) Allergies Allergy/AdvReac Type Severity Reaction Status Date / Time fentanyl [FENTANYL] Allergy Intermediate unknown Verified 05/22/21 11:43 Review of Systems Review of Systems: no fever no chills no chest pain or shortness breath no systemic complaints Yes all other systems are reviewed and are negative [facility] Past Medical History Attestation statement: The following information was validated with the patient. Medical History Alcohol use disorder, severe, in sustained remission Cognitive and neurobehavioral dysfunction following brain injury Hernia HTN (hypertension) Major depressive disorder, recurrent Major depressive disorder, recurrent severe without psychotic features Subdural hematoma TBI (traumatic brain injury) Surgical History H/O brain surgery H/O umbilical hernia repair History of hip replacement S/P cholecystectomy Social History Social History Household Members: Other Household Members Other:: Pt. lives in a long term. Housing: Other Housing Other:: [facility] Do you presently have visiting nurse or other home services: Yes Alcohol intake: current Alcohol intake frequency: holidays/special occasions only Patient Tobacco Use Status: Never used Tobacco e-Cigarette/Vaping Use: Never Used Second Hand Smoke Exposure: No Advance Directives: No Advance Directives Information Provided: No Advance Directives Date on File: 05/27/19 service: No Sexual orientation: Straight/Heterosexual Physical Exam Vital Signs: Vital Signs: Last Vital Signs Temp 97.5 F 03/14/22 19:17 Pulse 71 03/14/22 23:30 Resp 19 03/14/22 23:30 BP 148/69 H 03/14/22 23:30 Pulse Ox 96 03/14/22 23:30 BMI result Body Mass Index 28.8 Appearance: Alert. Oriented X3. No acute distress. Eyes: Pupils equal, round and reactive to light. ENT: Pharynx normal. Neck: Normal inspection. Neck supple. No lymph nodes noted. No crepitus CVS: Normal heart rate and rhythm. Pulses normal. Normal S1 and S2 Respiratory: No respiratory distress. Breath sounds normal. No Wheezing. No rales Abdomen: Soft and nontender. No rigidity. No distention. good BS x4 Skin: Skin warm and dry. Normal skin color. Normal skin turgor. Extremities: No lower extremity edema. Neurovascular intact to all extremities. No Lacerations. No Rash Neuro: Oriented X 3. No motor deficit. No sensory deficit. Moving all extermities. No slurred speech. Cranial nerves grossly intact MDM - Psych MDM Narrative Medical decision making narrative: Patient medically cleared. Awaiting crisis evaluation for suicidal ideation. Medical Records Attestation: I reviewed the patient's medical records. Lab Data Attestation: I reviewed the patient's lab results. Result diagrams: 03/14/22 19:43 03/14/22 19:43 Labs: Lab Results 03/14/22 03/14/22 03/14/22 Range/Units 19:43 19:43 19:43 WBC 7.2 (4.8-10.8) X10*3/uL RBC 4.23 L (4.60-5.80) X10*6/uL Hgb 13.6 L (14.0-18.0) g/dl Hct 41.3 L (42.0-52.0) % MCV 97.6 (80.0-98.0) fL MCH 32.2 (27.0-33.0) pg MCHC 32.9 (31.0-36.0) g/dl RDW 12.5 (11.0-16.0) % Plt Count 188 (160-400) X10*3/uL MPV 9.2 L (9.4-12.4) fL Immature Gran % (Auto) 1.7 H (0.0-0.4) % Neut % (Auto) 57.1 (45-73) % Lymph % (Auto) 25.2 (20-40) % [place] % (Auto) 11.2 H (2-11) % Eos % (Auto) 4.2 H (0-4) % Baso % (Auto) 0.6 (0-2) % Lymph # (Auto) 1.8 (1.2-4.9) X10*3/uL [place] # (Auto) 0.8 (0.1-1.2) X10*3/uL Eos # (Auto) 0.3 (0.0-0.4) X10*3/uL Baso # (Auto) 0.0 (0.0-0.2) X10*3/uL Abs Immat Gran (auto) 0.12 H (0.00-0.03) X10*3/uL Absolute Neuts (auto) 4.1 (2.0-8.3) x10*3/uL Absolute Nucleated RBC 0.000 (0.0-0.012) X10*3/uL Nucleated RBC % (auto) 0.0 (0.0-0.2) /100WBC Sodium 143 (135-145) mmol/L Potassium 5.3 H (3.3-5.1) mmol/L Chloride 106 (96-108) mmol/L Carbon Dioxide 27 (22-29) mmol/L Anion Gap 15 (12-20) BUN 25 H (9-16) mg/dL Creatinine 1.33 (0.5-1.4) mg/dL Estim Creat Clear Calc 68.7 Estimated GFR 54 Random Glucose 104 (60-115) mg/dL Calcium 10.1 D (8.4-10.2) mg/dL Total Bilirubin 0.2 (0.0-1.0) mg/dL Direct Bilirubin < 0.2 (0.0-0.5) mg/dL AST 23 D (5-37) U/L ALT 43 H (0-40) U/L Alkaline Phosphatase 86 (39-117) U/L Total Protein 7.2 (6.5-8.0) g/dL Albumin 4.5 (3.5-5.0) g/dL Urine Opiates Screen (Not Detect) Urine Fentanyl Screen (Not Detect) Ur Barbiturates Screen (Not Detect) Ur Phencyclidine Scrn (Not Detect) Ur Amphetamines Screen (Not Detect) U Benzodiazepines Scrn (Not Detect) Urine Cocaine Screen (Not Detect) U Marijuana (THC) Screen (Not Detect) Ethyl Alcohol < 10 mg/dL 03/14/22 Range/Units 20:25 WBC (4.8-10.8) X10*3/uL RBC (4.60-5.80) X10*6/uL Hgb (14.0-18.0) g/dl Hct (42.0-52.0) % MCV (80.0-98.0) fL MCH (27.0-33.0) pg MCHC (31.0-36.0) g/dl RDW (11.0-16.0) % Plt Count (160-400) X10*3/uL MPV (9.4-12.4) fL Immature Gran % (Auto) (0.0-0.4) % Neut % (Auto) (45-73) % Lymph % (Auto) (20-40) % [place] % (Auto) (2-11) % Eos % (Auto) (0-4) % Baso % (Auto) (0-2) % Lymph # (Auto) (1.2-4.9) X10*3/uL [place] # (Auto) (0.1-1.2) X10*3/uL Eos # (Auto) (0.0-0.4) X10*3/uL Baso # (Auto) (0.0-0.2) X10*3/uL Abs Immat Gran (auto) (0.00-0.03) X10*3/uL Absolute Neuts (auto) (2.0-8.3) x10*3/uL Absolute Nucleated RBC (0.0-0.012) X10*3/uL Nucleated RBC % (auto) (0.0-0.2) /100WBC Sodium (135-145) mmol/L Potassium (3.3-5.1) mmol/L Chloride (96-108) mmol/L Carbon Dioxide (22-29) mmol/L Anion Gap (12-20) BUN (9-16) mg/dL Creatinine (0.5-1.4) mg/dL Estim Creat Clear Calc Estimated GFR Random Glucose (60-115) mg/dL Calcium (8.4-10.2) mg/dL Total Bilirubin (0.0-1.0) mg/dL Direct Bilirubin (0.0-0.5) mg/dL AST (5-37) U/L ALT (0-40) U/L Alkaline Phosphatase (39-117) U/L Total Protein (6.5-8.0) g/dL Albumin (3.5-5.0) g/dL Urine Opiates Screen Not Detected (Not Detect) Urine Fentanyl Screen Not Detected (Not Detect) Ur Barbiturates Screen Not Detected (Not Detect) Ur Phencyclidine Scrn Not Detected (Not Detect) Ur Amphetamines Screen Not Detected (Not Detect) U Benzodiazepines Scrn Not Detected (Not Detect) Urine Cocaine Screen Not Detected (Not Detect) U Marijuana (THC) Screen Not Detected (Not Detect) Ethyl Alcohol mg/dL Discharge Plan Discharge Clinical Impression: Suicidal ideation Prescriptions: No Action latanoprost 0.005 % drops 1 drp ophthalmic (eye) DAILY 0RF lamotrigine 200 mg tablet 1 tab PO BID 0RF lisinopril 20 mg tablet 1 tab PO DAILY 0RF gabapentin 400 mg capsule 1 cap PO TID 0RF amlodipine 5 mg tablet 1 tab PO DAILY 0RF quetiapine 100 mg tablet 1 tab PO BEDTIME 0RF nortriptyline 25 mg capsule 125 mg PO BEDTIME 0RF lorazepam 0.5 mg tablet 0.5 mg PO Q6H PRN (Reason: Anxiety) 0RF trazodone 100 mg tablet 1 tab PO BEDTIME 0RF trazodone 150 mg tablet 1 tab PO BEDTIME 0RF ibuprofen 400 mg tablet 1 tab PO Q6H PRN (Reason: Pain (Scale Score 4-6)) 0RF pramipexole 0.125 mg tablet 0.125 mg PO TID 0RF docusate sodium 100 mg capsule 1 cap PO BID 0RF polyethylene glycol 3350 17 gram/dose powder 17 g PO DAILY 0RF cholecalciferol (vitamin D3) [Vitamin D3] 10 mcg (400 unit) tablet 1 tab PO DAILY 0RF finasteride 5 mg tablet 1 tab PO DAILY 0RF melatonin 5 mg tablet 1 tab PO BEDTIME 0RF quetiapine 25 mg Tablet 25 mg PO DAILY 0RF quetiapine 50 mg Tablet 50 mg PO DAILY@1300 0RF Metamucil 3.4 gram/5.4 gram Powder 1 tbsp PO DAILY 0RF Rx Instructions: mix into at least 8 oz of water or juice before administering Centrum Silver tablet 1 tab PO ONCE 0RF acetaminophen 325 mg tablet 650 mg PO NEEDED 0RF famotidine 20 mg tablet 1 tab PO BID 0RF famotidine 20 mg tablet 1 tab PO BID 0RF magnesium hydroxide [Milk of Magnesia] 400 mg/5 mL suspension 2,400 mg PO NEEDED 0RF nystatin 100,000 unit/gram cream 1 applic topical BID 0RF clotrimazole 1 % solution 1 appl topical NEEDED 0RF albuterol sulfate 90 mcg/actuation HFA aerosol inhaler 180 mcg inhalation NEEDED 0RF Artificial Tears([id number]) 1-0.2-0.2 % drops 1 drp ophthalmic (eye) NEEDED 0RF miconazole nitrate-zinc ox-pet 0.25-15-81.35 % ointment 2 appl topical NEEDED 0RF miconazole nitrate-zinc ox-pet 0.25-15-81.35 % ointment 2 appl topical NEEDED 0RF Trintellix 10 mg tablet 1 tab PO DAILY 0RF Atarax tablet 25 tab PO NEEDED PRN (Reason: Anxiety) 0RF
[2022-03-14 19:47] LABS: MANUAL DIFF FLAG NO
[2022-03-14 19:48] LABS: Basophils Percent Auto 0.6 % (0-2); Eosinophils Absolute Auto 0.3 X10*3/uL (0.0-0.4); Eosinophils Percent Auto 4.2 % (0-4); Hematocrit 41.3 % (42.0-52.0); Hemoglobin 13.6 g/dl (14.0-18.0); Imm Gran Abs Auto 0.12 X10*3/uL (0.00-0.03); Imm Gran Pct Auto 1.7 % (0.0-0.4); Lymphocytes Absolute Auto 1.8 X10*3/uL (1.2-4.9); Lymphocytes Percent Auto 25.2 % (20-40); Mean Corpuscular HGB Conc 32.9 g/dl (31.0-36.0); Mean Corpuscular Hemoglobin 32.2 pg (27.0-33.0); Mean Corpuscular Volume 97.6 fL (80.0-98.0); Mean Platelet Volume 9.2 fL (9.4-12.4); Monocytes Absolute Auto 0.8 X10*3/uL (0.1-1.2); Monocytes Percent Auto 11.2 % (2-11); Neutrophils Absolute Auto 4.1 x10*3/uL (2.0-8.3); Neutrophils Percent Auto 57.1 % (45-73); Platelet Count 188 X10*3/uL (160-400); Red Blood Count 4.23 X10*6/uL (4.60-5.80); Red Cell Distribution Width 12.5 % (11.0-16.0); White Blood Count 7.2 X10*3/uL (4.8-10.8)
[2022-03-14 20:04] LABS: Ethanol < 10 mg/dL
[2022-03-14 20:07] LABS: Alanine Aminotransferase 43 U/L (0-40); Albumin Level 4.5 g/dL (3.5-5.0); Alkaline Phosphatase 86 U/L (39-117); Anion Gap 15 (12-20); Aspartate Amino Transferase 23 U/L (5-37); Bilirubin Direct < 0.2 mg/dL (0.0-0.5); Bilirubin Total 0.2 mg/dL (0.0-1.0); Blood Urea Nitrogen 25 mg/dL (9-16); Calcium 10.1 mg/dL (8.4-10.2); Carbon Dioxide 27 mmol/L (22-29); Chloride 106 mmol/L (96-108); Creatinine Clr Calc Pharmacy 68.7; Estimated Glomerular Filt Rate 54; Glucose Random 104 mg/dL (60-115); Potassium 5.3 mmol/L (3.3-5.1); Sodium 143 mmol/L (135-145); Total Protein 7.2 g/dL (6.5-8.0)
[2022-03-14 20:48] LABS: Amphetamine Screen Urine Not Detected (Not Detect); Barbiturates, Urine Not Detected (Not Detect); Benzodiazepines Screen Urine Not Detected (Not Detect); Cannabinoid Screen Urine Not Detected (Not Detect); Cocaine Screen Urine Not Detected (Not Detect); Fentanyl, urine Not Detected (Not Detect); Opiate Screen Urine Not Detected (Not Detect); Phencyclidine Screen Urine Not Detected (Not Detect)
[2022-03-14 20:52] VITALS: BP 163/78; PULSE 86; RESP 20; O2SAT 96
[2022-03-14 23:30] VITALS: BP 148/69; PULSE 71; RESP 19; O2SAT 96
[2022-03-14] MEDS: QUEtiapine Fumarate 100 MG TABLET PO (23:45)
[2022-03-14] MEDS: Gabapentin 400 MG CAPSULE PO (23:45)
[2022-03-14] MEDS: traZODone HCL 100 MG TABLET 200 MG PO (23:46)
[2022-03-15] MEDS: Pramipexole Di-HCL 0.125 MG TABLET PO (00:02)
[2022-03-15 01:49] VITALS: BP 96/48; PULSE 68; RESP 15; O2SAT 97
[2022-03-15] MEDS: LORazepam 0.5 MG TABLET PO ×2 (04:17→08:10)
[2022-03-15 04:18] LABS: COVID-19 Test Negative (Negative)
[2022-03-15 06:07] VITALS: BP 149/80; PULSE 68; RESP 17; O2SAT 97
[2022-03-15 07:11] VITALS: BP 144/77; PULSE 82; RESP 14; TEMP 36.4; O2SAT 97
[2022-03-15] MEDS: lisinopriL 20 MG TABLET PO (08:09)
[2022-03-15] MEDS: Gabapentin 400 MG CAPSULE PO (08:10)
[2022-03-15] MEDS: Famotidine 20 MG TABLET PO (08:10)
[2022-03-15] MEDS: Ibuprofen 400 MG TABLET PO (08:10)
[2022-03-15] MEDS: lamoTRIgine 100 MG TABLET 200 MG PO (08:11)
[2022-03-15] MEDS: Docusate Sodium 100 MG CAPSULE PO (08:11)
[2022-03-15] MEDS: amLODIPine Besylate 5 MG TABLET PO (08:12)
[2022-03-15] MEDS: polyethylene glycoL 3350 17 GM POWD.PACK PO (08:12)
[2022-03-15] MEDS: QUEtiapine Fumarate 25 MG TABLET PO (08:19)
--- NOTE | 2022-03-15 11:35 | PC.NURSE ---
pt is slightly inpatient waiting for care team to come and clear him for discharge. it was offered to have him go to the pod as TV working, he declined as he heard bad things about the pod He does ambulate with a walker at senior care.
[2022-03-15] MEDS: Finasteride 5 MG TABLET PO (14:10)
[2022-03-15] MEDS: Latanoprost 0.005 % Ophth Sol 2.5 ML DROPS 1 DROP EYE-BOTH (14:11)
--- NOTE | 2022-03-15 15:04 | MHC.CARE ---
Pt is a 66 year old , Gambian speaking; male who is previously known to the CARE Team through prior assessments and inpatient stays.? Yesterday, pt was brought to the ED via ambulance after he made SI statements at his alf.? Pt was then transported to this facility via ambulance.? Pt did not disclose any plan but was making statements to alf staff wanted to ?leave?, wants to be ?Shot? and wants to get a gun and ?Shoot myself in the head?.? It should be noted that pt had consumed alcoholic beverage prior to his returning to the alf, making the SI statements and arriving at this facility.? Pt has been medically cleared and is being assessed by the CARE Team to determine appropriate treatment recommendations.? Pt has a hx of inpatient hospitalizations with his most recent discharge being late October of 2021.? He reports being compliant with his medications as prescribed.? Past documented hx of Major Depressive d/o.? No known or confirmed hx of substance use or suicide attempts. Pt is alert and oriented x4 and is assessed in his room in the Main ED.? He appears well groomed and is dressed in his personal attire.? He appears his stated age.? Pt is engaged in the assessment and reports that he is ready to return home.? He suggests that his arrival here was due to a misunderstanding but he can neither confirm nor deny his making the above statements.? He reports that he was consuming alcoholic beverage but ?Only had two? at lunch time.? His eye contact and speech are within normal limits.? He reports fair sleep and appetite.? His mood is described as ?Fine?.? He does report ever present depression to varying degrees, with today?s being mild and manageable.? His affect is flat.? He denies AVH, HI, , SI and urges to self-harm.? He denies having had SI yesterday when he arrived.? He does not appear to be delusional or experiencing symptoms of psychosis.? Insight, judgement, impulse control, memory and concentration appear to be within normal limits. Pt?s functioning appears to be at his baseline.? CARE Team spoke with alf staff Inés to gather collateral information.? She reports that pt will behave in this manner, making SI statement, when consuming alcoholic beverages.? At baseline, pt is quite pleasant and engaging.? She reports the above mentioned statements and stated that his Dr?s office had called the alf yesterday voicing some concerns regarding a voice message left with them stating he was going to overdose on melatonin, ibuprophen and acetametaphin.? Pt presently has access to those medications in addition to a daily vitamin supplement. ?All other medications are secured and administered by staff.? CARE Team suggests that pt?s unsecured meds be secured as well.? Inés stated she will have a conversation regarding that but it will likely have to be sent up the chain of command before that could happen. Plan is for pt to be discharged back to the alf.? This disposition was discussed with and agreed upon by CARE Migration Specialist Srinath GIRALDO and ED provider Dr. Gabrielle Malone. Pt will be transported back to the alf via chair van.? CARE Team contacted the alf to advise them of pt?s return.
== END 2022-03-15 15:29 | disposition home or self-care (01) ==
PROVIDERS: Emergency Provider Emergency Medicine Emergency Medical Services; PCP Internal Medicine
DX: F33.2 Major depressive disorder, recurrent severe without psychotic features (principal); R45.851 Suicidal ideations; Z79.899 Other long term (current) drug therapy; Z20.822 Contact with and (suspected) exposure to COVID-19
CPT/HCPCS: 36415; 80048; 80076; 80307; 82077; 85025; 87635; 99284

== ENCOUNTER 2022-04-07 19:02 | Inpatient (IN) | payer MEDICARE, MEDICAID, SELFPAY ==
[2022-04-07] VITALS (9 sets, daily range): BP systolic 68–120; BP diastolic 36–85; PULSE 65–75; RESP 19–23; O2SAT 95–98; BMI 27.1
--- NOTE | ~2022-04-07 | XR_ITS ---
EXAMINATION: XR CHEST CLINICAL INFORMATION: Low blood pressure COMPARISON: 01/20/2011 TECHNIQUE: Frontal view of the chest was obtained. FINDINGS: The lungs are hypoinflated. Mild streaky bibasilar opacities favor atelectasis. Mid and upper lungs are well-aerated. No evidence of pneumothorax or significant pleural effusion. No overt pulmonary edema. Cardiac size is within normal limits. Calcification is present at the aortic arch. No acute osseous findings are seen. XR/XR chest 1V IMPRESSION: Low lung volumes with bibasilar subsegmental atelectasis.
--- NOTE | ~2022-04-07 | CT_ITS ---
EXAMINATION: CT HEAD WITHOUT CONTRAST CLINICAL INFORMATION: Acute mental status change COMPARISON: 05/24/2021 TECHNIQUE: Contiguous axial imaging was performed from the skull base to vertex without intravenous administration of contrast. This CT examination was performed using dose optimization techniques as appropriate, variously including the following: *Automated exposure control *Adjustment of mA and/or kV according to patient size (this includes techniques or standardized protocols for targeted exams where dose is matched to indication/reason for exam; i.e. extremities or head) *Use of iterative reconstruction technique DLP: 1042 mGy-cm FINDINGS: There is no interval change in status post craniotomy and severe atrophy with ventriculomegaly, more prominent on the right and patchy periventricular white matter changes mostly in the right parietal and frontal lobes as a sequela of microangiopathy. Sulci are prominent also. No evidence of intracranial hemorrhage masses or brain edema. A chronic calcifications adjacent to the right occipital horn with significant distention of right occipital horn in comparison to the rest of the ventricles. Sinuses and mastoids are well aerated CT/CT head/brain wo con IMPRESSION: No interval change. Status post right parietal craniotomy. Ventriculomegaly, sequela of microangiopathy and atrophy
--- NOTE | 2022-04-07 19:19 | ED_ITS ---
HPI - General Adult General Chief complaint: General Medical Stated complaint: ?UTI,IRRITABLE,FREQUENT URINATION PER [facility] HOME Time Seen by Provider: 04/07/22 19:18 Source: EMS and other (supervisor [employer]) Limitations: altered mental status History of Present Illness HPI narrative: Patient history of anxiety depression, with history of seizure disorder, alcohol abuse, multiple subdurals status post craniotomy, TIAs, hypertension came from assisted was seen at [facility] on 04/04 and 04/06 for anxiety comes here for increased lethargy with delusion with questionable facial droop an hour before patient was given Ativan for increased anxiety. Patient had labs workup done at [facility] including the urine which was negative patient is wheelchair-bound. No recent fall per staff Related Data Home Medications Medication Instructions Recorded Confirmed albuterol sulfate 90 mcg/actuation 180 mcg INHALATION Q6H PRN 04/07/22 04/07/22 aerosol inhaler amlodipine 5 mg tablet 1 tab PO DAILY 04/07/22 04/07/22 cholecalciferol (vitamin D3) 10 10 mcg PO DAILY 04/07/22 04/07/22 mcg (400 unit) capsule (Vitamin D3) finasteride 5 mg tablet 1 tab PO DAILY 04/07/22 04/07/22 gabapentin 400 mg capsule 1 cap PO TID 04/07/22 04/07/22 ibuprofen 400 mg tablet 400 mg PO Q6H PRN 04/07/22 04/07/22 lamotrigine 200 mg tablet 1 tab PO BID 04/07/22 04/07/22 (Lamictal) latanoprost 0.005 % eye drops 1 drp OPHTHALMIC (EYE) BEDTIME 04/07/22 04/07/22 lidocaine 5 % topical patch 1 patch TOPICAL Q12H PRN 04/07/22 04/07/22 (Lidoderm) lisinopril 20 mg tablet 1 tab PO DAILY 04/07/22 04/07/22 lorazepam 0.5 mg tablet 0.5 mg PO Q6H PRN 04/07/22 04/07/22 multivitamin 1 tab PO DAILY 04/07/22 04/07/22 nortriptyline 25 mg capsule 125 mg PO BEDTIME 04/07/22 04/07/22 omeprazole 20 mg capsule,delayed 1 cap PO BID 04/07/22 04/07/22 release polyethylene glycol 3350 17 17 g PO DAILY 04/07/22 04/07/22 gram/dose oral powder polyvinyl alcohol 1.4 % eye drops 1 drp OPHTHALMIC (EYE) Q1H PRN 04/07/22 04/07/22 (Artificial Tears (polyvinyl alcohol)) pramipexole 0.25 mg tablet 0.25 mg PO TID 04/07/22 04/07/22 psyllium seed (sugar) oral powder 3.4 ea PO DAILY 04/07/22 04/07/22 (Natural Fiber Laxative (sugar)) quetiapine 100 mg tablet 100 mg PO BEDTIME 04/07/22 04/07/22 quetiapine 25 mg tablet 25 mg PO DAILY 04/07/22 04/07/22 quetiapine 50 mg tablet 50 mg PO DAILY@1200 04/07/22 04/07/22 trazodone 150 mg tablet 1 tab PO BEDTIME 04/07/22 04/07/22 trazodone 150 mg tablet 1 tab PO BEDTIME PRN 04/07/22 04/07/22 Allergies Allergy/AdvReac Type Severity Reaction Status Date / Time fentanyl AdvReac Intermediate Unknown Verified 04/07/22 19:42 Review of Systems Review of Systems: Limited HPI as patient lethargic and uncooperative Yes Unobtainable due to mental status PMFSH Past Medical History Medical History Alcohol abuse Anxiety Depression Hypertension Seizure disorder Subdural hematoma TBI (traumatic brain injury) TIA (transient ischemic attack) Surgical History H/O craniotomy History of cholecystectomy Social History Social History Alcohol intake: current Alcohol intake frequency: a few times a week Patient Tobacco Use Status: Never used Tobacco Use of substances other than those prescribed or required for medical reasons: Unknown Advance Directives: No Advance Directives Information Provided: No Physical Exam ED Vital Signs: Vital Signs - 24 hr 04/07/22 19:47 04/07/22 21:00 04/07/22 21:18 Pulse Rate 75 67 Respiratory Rate 20 23 H Blood Pressure 120/85 68/36 L 71/41 L Pulse Oximetry 98 95 04/07/22 21:23 04/07/22 21:29 04/07/22 21:34 Pulse Rate 65 Respiratory Rate 19 Blood Pressure 81/45 L 87/47 L 90/50 L Pulse Oximetry 96 04/07/22 21:40 04/07/22 21:50 04/07/22 22:02 Pulse Rate 71 Respiratory Rate 20 Blood Pressure 95/55 L 108/55 L 113/59 L Pulse Oximetry 95 BMI result Body Mass Index 27.1 Appearance: Alert. Oriented X2-3. No acute distress. Lethargic Eyes: PERRLA, No Nystagmus ENT: Pharynx normal. Oral Mucosa dry no facial asymmetry Neck: Normal inspection. Neck supple. CVS: Normal heart rate and rhythm. Pulses normal. Respiratory: No respiratory distress. Equal air entry bilateral, no wheezing/rales/rhonchi Abdomen: Soft and nontender. Bowel sounds are present, no mass palpable, no CVA tenderness Skin: Skin warm and dry. Normal skin color. Normal skin turgor. Extremities: No lower extremity edema. No calf tenderness Neuro: Oriented X 2-3. No motor deficit. No sensory deficit.No cerebellar signs , cranial nerves II-XII intact Medical Decision Making MDM Narrative Medical decision making narrative: Patient's lab showed really creatinine to 2.24 with BUN 25 , bicarb of 16 labs checked at [facility] on 04/04 BUN/creatinine level was 17/1.0 previous creatinine was 1.4, 0.8 in 2020 never had this elevated creatinine the past patient with [facility] will admit patient for further evaluation .patient engineering group manager Daniel Coker phone number [phone] 21:10 patient's blood pressure dropped to 68/36 without tachycardia patient is sleeping received Seroquel in the evening prior to arrival likely the cause of hypertension with renal failure will give 2 L of normal saline and recheck the blood pressure 22:00 blood pressure stable now 113/59 Lab Data Lab results reviewed: Yes I reviewed the patient's lab results. Result diagrams: 04/07/22 19:54 04/07/22 19:54 Labs: Lab Results 04/07/22 04/07/22 04/07/22 Range/Units 19:54 19:54 20:59 WBC 11.2 H (4.8-10.8) X10*3/uL RBC 4.26 L (4.60-5.80) X10*6/uL Hgb 13.9 L (14.0-18.0) g/dl Hct 41.8 L (42.0-52.0) % MCV 98.1 H (80.0-98.0) fL MCH 32.6 (27.0-33.0) pg MCHC 33.3 (31.0-36.0) g/dl RDW 12.6 (11.0-16.0) % Plt Count 252 (160-400) X10*3/uL MPV 9.4 (9.4-12.4) fL Immature Gran % (Auto) 0.9 H (0.0-0.4) % Neut % (Auto) 76.2 H (45-73) % Lymph % (Auto) 12.5 L (20-40) % [place] % (Auto) 9.4 (2-11) % Eos % (Auto) 0.6 (0-4) % Baso % (Auto) 0.4 (0-2) % Lymph # (Auto) 1.4 (1.2-4.9) X10*3/uL [place] # (Auto) 1.1 (0.1-1.2) X10*3/uL Eos # (Auto) 0.1 (0.0-0.4) X10*3/uL Baso # (Auto) 0.1 (0.0-0.2) X10*3/uL Abs Immat Gran (auto) 0.10 H (0.00-0.03) X10*3/uL Absolute Neuts (auto) 8.5 H (2.0-8.3) x10*3/uL Absolute Nucleated RBC 0.000 (0.0-0.012) X10*3/uL Nucleated RBC % (auto) 0.0 (0.0-0.2) /100WBC Sodium 139 (135-145) mmol/L Potassium 4.1 (3.3-5.1) mmol/L Chloride 111 H (96-108) mmol/L Carbon Dioxide 16 L (22-29) mmol/L Anion Gap 16 (12-20) BUN 25 H (9-16) mg/dL Creatinine 2.24 H (0.5-1.4) mg/dL Estim Creat Clear Calc 35.1 Estimated GFR 29 POC Glucose 102 (60-115) mg/dL Random Glucose 100 (60-115) mg/dL Lactic Acid (0.5-2.0) mmol/L Calcium 8.6 (8.4-10.2) mg/dL Magnesium 2.2 (1.6-2.6) mg/dL Total Bilirubin 0.6 (0.0-1.0) mg/dL AST 27 (5-37) U/L ALT 35 (0-40) U/L Alkaline Phosphatase 78 (39-117) U/L Troponin I High Sens (<3.5-35.0) ng/L Total Protein 6.2 L (6.5-8.0) g/dL Albumin 3.9 (3.5-5.0) g/dL 04/07/22 04/07/22 Range/Units 23:09 23:09 WBC (4.8-10.8) X10*3/uL RBC (4.60-5.80) X10*6/uL Hgb (14.0-18.0) g/dl Hct (42.0-52.0) % MCV (80.0-98.0) fL MCH (27.0-33.0) pg MCHC (31.0-36.0) g/dl RDW (11.0-16.0) % Plt Count (160-400) X10*3/uL MPV (9.4-12.4) fL Immature Gran % (Auto) (0.0-0.4) % Neut % (Auto) (45-73) % Lymph % (Auto) (20-40) % [place] % (Auto) (2-11) % Eos % (Auto) (0-4) % Baso % (Auto) (0-2) % Lymph # (Auto) (1.2-4.9) X10*3/uL [place] # (Auto) (0.1-1.2) X10*3/uL Eos # (Auto) (0.0-0.4) X10*3/uL Baso # (Auto) (0.0-0.2) X10*3/uL Abs Immat Gran (auto) (0.00-0.03) X10*3/uL Absolute Neuts (auto) (2.0-8.3) x10*3/uL Absolute Nucleated RBC (0.0-0.012) X10*3/uL Nucleated RBC % (auto) (0.0-0.2) /100WBC Sodium (135-145) mmol/L Potassium (3.3-5.1) mmol/L Chloride (96-108) mmol/L Carbon Dioxide (22-29) mmol/L Anion Gap (12-20) BUN (9-16) mg/dL Creatinine (0.5-1.4) mg/dL Estim Creat Clear Calc Estimated GFR POC Glucose (60-115) mg/dL Random Glucose (60-115) mg/dL Lactic Acid 1.4 (0.5-2.0) mmol/L Calcium (8.4-10.2) mg/dL Magnesium (1.6-2.6) mg/dL Total Bilirubin (0.0-1.0) mg/dL AST (5-37) U/L ALT (0-40) U/L Alkaline Phosphatase (39-117) U/L Troponin I High Sens 3.6 (<3.5-35.0) ng/L Total Protein (6.5-8.0) g/dL Albumin (3.5-5.0) g/dL ECG Data Attestation: I personally reviewed and interpreted this ECG as follows: Interpretation: Normal sinus rhythm first-degree heart block , rate 68 beats per minute normal axis no acute ischemic changes Discharge Plan Discharge Clinical Impression: Lethargy, ADORE (acute kidney injury), Weakness Patient Disposition: Admitted As Inpatient
[2022-04-07 19:59] LABS: MANUAL DIFF FLAG NO
[2022-04-07 20:19] LABS: Alanine Aminotransferase 35 U/L (0-40); Albumin Level 3.9 g/dL (3.5-5.0); Alkaline Phosphatase 78 U/L (39-117); Anion Gap 16 (12-20); Aspartate Amino Transferase 27 U/L (5-37); Bilirubin Total 0.6 mg/dL (0.0-1.0); Blood Urea Nitrogen 25 mg/dL (9-16); Calcium 8.6 mg/dL (8.4-10.2); Carbon Dioxide 16 mmol/L (22-29); Chloride 111 mmol/L (96-108); Creatinine Clr Calc Pharmacy 35.1; Estimated Glomerular Filt Rate 29; Glucose Random 100 mg/dL (60-115); Potassium 4.1 mmol/L (3.3-5.1); Sodium 139 mmol/L (135-145); Total Protein 6.2 g/dL (6.5-8.0)
[2022-04-07 20:23] LABS: Basophils Absolute Auto 0.1 X10*3/uL (0.0-0.2); Basophils Percent Auto 0.4 % (0-2); Eosinophils Absolute Auto 0.1 X10*3/uL (0.0-0.4); Eosinophils Percent Auto 0.6 % (0-4); Hematocrit 41.8 % (42.0-52.0); Hemoglobin 13.9 g/dl (14.0-18.0); Imm Gran Pct Auto 0.9 % (0.0-0.4); Lymphocytes Absolute Auto 1.4 X10*3/uL (1.2-4.9); Lymphocytes Percent Auto 12.5 % (20-40); Mean Corpuscular HGB Conc 33.3 g/dl (31.0-36.0); Mean Corpuscular Hemoglobin 32.6 pg (27.0-33.0); Mean Corpuscular Volume 98.1 fL (80.0-98.0); Mean Platelet Volume 9.4 fL (9.4-12.4); Monocytes Absolute Auto 1.1 X10*3/uL (0.1-1.2); Monocytes Percent Auto 9.4 % (2-11); Neutrophils Absolute Auto 8.5 x10*3/uL (2.0-8.3); Neutrophils Percent Auto 76.2 % (45-73); Platelet Count 252 X10*3/uL (160-400); Red Blood Count 4.26 X10*6/uL (4.60-5.80); Red Cell Distribution Width 12.6 % (11.0-16.0); White Blood Count 11.2 X10*3/uL (4.8-10.8)
[2022-04-07] MEDS: 0.9 % Sodium Chloride 1,000 ML 999 ML IV ×2 (20:47→21:11)
--- NOTE | 2022-04-07 21:16 | ECG_ITS ---
Test Reason : AMS Blood Pressure : / mmHG Vent. Rate : 068 BPM Atrial Rate : 068 BPM P-R Int : 228 ms QRS Dur : 104 ms QT Int : 414 ms P-R-T Axes : 038 -18 092 degrees QTc Int : 440 ms Sinus rhythm with 1st degree A-V block Inferior infarct , age undetermined Nonspecific ST-T changes Abnormal ECG No previous ECGs available Referred By: Danny Rubio Electronically Signed By:Remberto Mathew
[2022-04-07 21:19] LABS: Glucose, Whole Blood 102 mg/dL (60-115)
--- NOTE | 2022-04-07 21:27 | PC.NURSE ---
MD Pires aware of patients change in blood pressure. Ordered 2L of fluids and said he will reassess.
--- NOTE | 2022-04-07 21:35 | PHA.MEDREC ---
Pharmacy Consult ? Medication Reconciliation Pharmacy has completed the medication reconciliation. Used based on medication list from [employer] phone Thanks Kraig
[2022-04-07 21:44] LABS: Magnesium 2.2 mg/dL (1.6-2.6)
[2022-04-07 23:25] LABS: Lactic Acid 1.4 mmol/L (0.5-2.0)
[2022-04-07 23:34] LABS: Troponin-I High Sensitivity 3.6 ng/L (<3.5-35.0)
--- NOTE | 2022-04-07 23:45 | P.HPHOSP_ITS ---
History of Present Illness Date of Service: 04/07/22 Chief Complaint: drowsy [age]-year-old male with a past medical history of anxiety, depression, bipolar, seizure disorder, hypertension, hyperlipidemia, TIA, Traumatic brain injury, history of subdural hematoma; use in a long term; presented to the hospital rosal[place] day with a chief complaint of drowsiness/ lethargy. Most of the history obtained from the patient's after school caregiver at bedside; who mentions that patient discharged [facility] 2 times in the past 2 days; discharged yesterday from [facility]; patient initially went to [facility] after he called the police mentioned that he was unsafe at the home; delusional; and today patient was noted to be drowsy and lethargic already took his evening dose of Ativan. Subsequently came to the ER for further evaluation. Prior to that patient was also noted to be delusional, having garbled speech; denies patient having any fevers. Denies patient complaining of any chest pain or palpitations. Denies any fall or trauma. Denies patient using any illicit drugs. Review of all other systems is negative except mentioned above ER course: Per ER team on presentation noted to have normal neurological examination; CT head showed no acute findings; on labs noted to have ADORE; midodrine patient blood pressure was also drop-given IV fluids with improvement in the blood pressure. Admitted for further management. [facility] Medical History Alcohol abuse Anxiety Depression Hypertension Seizure disorder Subdural hematoma TBI (traumatic brain injury) TIA (transient ischemic attack) Surgical History H/O craniotomy History of cholecystectomy Social History Alcohol intake: current Alcohol intake frequency: a few times a week Patient Tobacco Use Status: Never used Tobacco Use of substances other than those prescribed or required for medical reasons: Unknown Advance Directives: No Advance Directives Information Provided: No Meds Allergies Allergy/AdvReac Type Severity Reaction Status Date / Time fentanyl AdvReac Intermediate Unknown Verified 04/07/22 19:42 Active Medications: Current Medications Acetaminophen (Acetaminophen 325 Mg Tablet) 650 mg PO Q6H PRN PRN Reason: Pain, Mild (Pain Scale 1-3) Albuterol Sulfate (Albuterol Sulfate 90 Mcg 8 Gm Inhaler) puff INHALE Q6H PRN PRN Reason: Wheezing Artificial Tears (Artificial Tears 15 Ml Drops) 1 drop EYE-BOTH Q1H PRN PRN Reason: Dry Eyes Finasteride (Finasteride 5 Mg Tablet) 5 mg PO DAILY [facility] Gabapentin (Gabapentin 400 Mg Capsule) 400 mg PO TID [facility] Heparin Sodium (Porcine) (Heparin Sodium,Porcine 5,000 Unit/Ml Vial) 5,000 unit SUBCUT Q8H [facility] Sodium Chloride (Ns) 1,000 mls @ 100 mls/hr IVCONT .Q10H [facility] Lamotrigine (Lamotrigine 100 Mg Tablet) 200 mg PO BID [facility] Latanoprost (Latanoprost 0.005 % Ophth No 2.5 Ml Drops) 1 drop EYE-BOTH BEDTIME [facility] Lisinopril (Lisinopril 20 Mg Tablet) 20 mg PO DAILY [facility]; Protocol Lorazepam (Lorazepam 0.5 Mg Tablet) 0.5 mg PO Q6H PRN PRN Reason: Anxiety Melatonin (Melatonin 3 Mg Tablet) 6 mg PO BEDTIME PRN PRN Reason: Insomnia Multivitamins/Vitamin C (Multivitamin Tablet) 1 tab PO DAILY [facility] Nortriptyline HCl (Nortriptyline Hcl 25 Mg Capsule) 125 mg PO BEDTIME [facility] Omeprazole (Omeprazole 20 Mg Capsule.Dr) 20 mg PO BID [facility] Pharmacy Consult (Consult Rx Perform Med Rec) 1 each MISCELLANE ONCE PRN PRN Reason: Consult order Polyethylene Glycol (Polyethylene Glycol 3350 17 Gm Powd.Pack) 17 gm PO DAILY [facility] Pramipexole Dihydrochloride (Pramipexole Di-Hcl 0.25 Mg Tablet) 0.25 mg PO TID [facility] Quetiapine Fumarate (Quetiapine Fumarate 25 Mg Tablet) 25 mg PO DAILY [facility] Senna (Sennosides 8.6 Mg Tablet) 17.2 mg PO BEDTIME PRN PRN Reason: Constipation Sodium Chloride (0.9 % Sodium Chloride Flush 3 Ml Syringe) 3 ml IVFLUSH QSHIFT [facility] Trazodone HCl (Trazodone Hcl 50 Mg Tablet) 150 mg PO BEDTIME PRN PRN Reason: Sleep Vitamin D (Cholecalciferol (Vitamin D3) 10 Mcg Tablet) 10 mcg PO DAILY [facility] Home Medications Medication Instructions Recorded Confirmed Last Taken Type albuterol sulfate 90 mcg/actuation 180 mcg INHALATION Q6H PRN 04/07/22 04/07/22 Unknown History aerosol inhaler amlodipine 5 mg tablet 1 tab PO DAILY 04/07/22 04/07/22 Unknown History cholecalciferol (vitamin D3) 10 10 mcg PO DAILY 04/07/22 04/07/22 Unknown History mcg (400 unit) capsule (Vitamin D3) finasteride 5 mg tablet 1 tab PO DAILY 04/07/22 04/07/22 Unknown History gabapentin 400 mg capsule 1 cap PO TID 04/07/22 04/07/22 Unknown History ibuprofen 400 mg tablet 400 mg PO Q6H PRN 04/07/22 04/07/22 Unknown History lamotrigine 200 mg tablet 1 tab PO BID 04/07/22 04/07/22 Unknown History (Lamictal) latanoprost 0.005 % eye drops 1 drp OPHTHALMIC (EYE) BEDTIME 04/07/22 04/07/22 Unknown History lidocaine 5 % topical patch 1 patch TOPICAL Q12H PRN 04/07/22 04/07/22 Unknown History (Lidoderm) lisinopril 20 mg tablet 1 tab PO DAILY 04/07/22 04/07/22 Unknown History lorazepam 0.5 mg tablet 0.5 mg PO Q6H PRN 04/07/22 04/07/22 Unknown History multivitamin 1 tab PO DAILY 04/07/22 04/07/22 Unknown History nortriptyline 25 mg capsule 125 mg PO BEDTIME 04/07/22 04/07/22 Unknown History omeprazole 20 mg capsule,delayed 1 cap PO BID 04/07/22 04/07/22 Unknown History release polyethylene glycol 3350 17 17 g PO DAILY 04/07/22 04/07/22 Unknown History gram/dose oral powder polyvinyl alcohol 1.4 % eye drops 1 drp OPHTHALMIC (EYE) Q1H PRN 04/07/22 04/07/22 Unknown History (Artificial Tears (polyvinyl alcohol)) pramipexole 0.25 mg tablet 0.25 mg PO TID 04/07/22 04/07/22 Unknown History psyllium seed (sugar) oral powder 3.4 ea PO DAILY 04/07/22 04/07/22 Unknown History (Natural Fiber Laxative (sugar)) quetiapine 100 mg tablet 100 mg PO BEDTIME 04/07/22 04/07/22 Unknown History quetiapine 25 mg tablet 25 mg PO DAILY 04/07/22 04/07/22 Unknown History quetiapine 50 mg tablet 50 mg PO DAILY@1200 04/07/22 04/07/22 Unknown History trazodone 150 mg tablet 1 tab PO BEDTIME 04/07/22 04/07/22 Unknown History trazodone 150 mg tablet 1 tab PO BEDTIME PRN 04/07/22 04/07/22 Unknown History Physical Exam Vital Signs and Narrative: Vital Signs: Last Vital Signs Pulse 71 04/07/22 21:40 Resp 20 04/07/22 21:40 BP 113/59 L 04/07/22 22:02 Pulse Ox 95 04/07/22 21:40 BMI result Body Mass Index 27.1 Gen: Appears be in no acute distress HEENT: NCAT, Moist mucosa. Pulmonary: Vesicular breath sounds, fair air entry CVS: Normal S1-S2 Abdomen: BS+, Soft, Nontender Extremities: Warm well perfused Neuro: patient is drowsy and lethargic; opens eyes to loud verbal stimuli but falls back to sleep. Moves all extremities equally. Facies symmetrical. Tongue is midline. Unable to assess speech. Results Labs CBC and Chem 7: 04/07/22 19:54 04/08/22 01:00 Labs: Laboratory Results - last 24 hr 04/07/22 04/07/22 04/07/22 19:54 19:54 20:59 MCV 98.1 H MCH 32.6 MCHC 33.3 RDW 12.6 Plt Count 252 MPV 9.4 Immature Gran % (Auto) 0.9 H Neut % (Auto) 76.2 H Lymph % (Auto) 12.5 L [place] % (Auto) 9.4 Eos % (Auto) 0.6 Baso % (Auto) 0.4 Lymph # (Auto) 1.4 [place] # (Auto) 1.1 Eos # (Auto) 0.1 Baso # (Auto) 0.1 Abs Immat Gran (auto) 0.10 H Absolute Neuts (auto) 8.5 H Absolute Nucleated RBC 0.000 Nucleated RBC % (auto) 0.0 Anion Gap 16 Estim Creat Clear Calc 35.1 Estimated GFR 29 POC Glucose 102 Random Glucose 100 Lactic Acid Calcium 8.6 Magnesium 2.2 Total Bilirubin 0.6 AST 27 ALT 35 Alkaline Phosphatase 78 Troponin I High Sens Total Protein 6.2 L Albumin 3.9 04/07/22 04/07/22 23:09 23:09 MCV MCH MCHC RDW Plt Count MPV Immature Gran % (Auto) Neut % (Auto) Lymph % (Auto) [place] % (Auto) Eos % (Auto) Baso % (Auto) Lymph # (Auto) [place] # (Auto) Eos # (Auto) Baso # (Auto) Abs Immat Gran (auto) Absolute Neuts (auto) Absolute Nucleated RBC Nucleated RBC % (auto) Anion Gap Estim Creat Clear Calc Estimated GFR POC Glucose Random Glucose Lactic Acid 1.4 Calcium Magnesium Total Bilirubin AST ALT Alkaline Phosphatase Troponin I High Sens 3.6 Total Protein Albumin Imaging Radiologist's Impressions: Impressions Head CT 04/07/22 20:11 IMPRESSION: No interval change. Status post right parietal craniotomy. Ventriculomegaly, sequela of microangiopathy and atrophy Assessment and Plan (1) Lethargy: Status: Acute (2) ADORE (acute kidney injury): Status: Acute (3) Hypotension: Status: Acute Plan 66-year-old male with a past medical history of hypertension, seizure disorder, anxiety, depression, TIA, history of traumatic brain injury/ subdural hematoma; presented to the hospital today with a chief complaint of drowsy/ lethargy/altered mental status. Altered mental status: Patient is drowsy and lethargic ; CT head showed no acute findings Multifactorial: Likely in the setting of polypharmacy. Will hold home Seroquel, Ativan , trazodone for now. Reduce the dose of gabapentin urinalysis, chest x-ray pending. Patient is afebrile will also obtain TSH, folate, B12 CT head showed no acute findings. neurology consult Hypotension: Unclear etiology. Likely volume depletion. Blood pressure improved with IV fluids. Continue maintenance IV fluids. ADORE: Patient baseline creatinine around 1.0. Creatinine on presentation was 2.0. Gentle IV fluids. Likely prerenal. History of anxiety / depression / bipolar/ seizure disorder: Continue home medications nortriptyline, lamotrigine, gabapentin, pramipexole. DVT prophylaxis: Subcu heparin Code status: Full code Quality Stroke Does the patient have a stroke diagnosis?: No VTE Prior VTE?: No VTE Risk Level:: Medical - moderate - high VTE Device Contraindication: Treatment Not Indicated VTE Drug Contraindication: N/A - Med Ordered
[2022-04-08] VITALS (7 sets, daily range): BP systolic 102–169; BP diastolic 62–87; PULSE 65–78; RESP 16–22; TEMP 36.4–36.7; O2SAT 96–99
[2022-04-08] MEDS: 0.9 % Sodium Chloride 1,000 ML 100 ML IVCONT ×3 (00:52→19:38)
[2022-04-08] MEDS: Heparin Sodium,Porcine 5,000 UNIT/ML VIAL 5000 UNIT SUBCUT ×3 (00:55→15:44)
[2022-04-08] MEDS: 0.9 % Sodium Chloride Flush 3 ML SYRINGE IVFLUSH (00:57)
[2022-04-08 01:25] LABS: COVID-19 Test Negative (Negative)
[2022-04-08 01:34] LABS: Anion Gap 20 (12-20); Blood Urea Nitrogen 31 mg/dL (9-16); Carbon Dioxide 13 mmol/L (22-29); Chloride 113 mmol/L (96-108); Creatinine Clr Calc Pharmacy 32.5; Estimated Glomerular Filt Rate 27; Glucose Random 104 mg/dL (60-115); Potassium 5.4 mmol/L (3.3-5.1); Sodium 141 mmol/L (135-145)
[2022-04-08 02:59] LABS: Thyroid Stimulating Hormone 1.47 uIU/mL (0.32-4.0)
[2022-04-08 07:03] LABS: Basophils Percent Auto 0.5 % (0-2); Eosinophils Absolute Auto 0.1 X10*3/uL (0.0-0.4); Eosinophils Percent Auto 1.2 % (0-4); Hematocrit 45.2 % (42.0-52.0); Hemoglobin 14.5 g/dl (14.0-18.0); Imm Gran Abs Auto 0.07 X10*3/uL (0.00-0.03); Imm Gran Pct Auto 0.9 % (0.0-0.4); Lymphocytes Absolute Auto 1.7 X10*3/uL (1.2-4.9); Lymphocytes Percent Auto 22.1 % (20-40); MANUAL DIFF FLAG SCAN; Mean Corpuscular HGB Conc 32.1 g/dl (31.0-36.0); Mean Corpuscular Hemoglobin 32.2 pg (27.0-33.0); Mean Corpuscular Volume 100.2 fL (80.0-98.0); Monocytes Absolute Auto 0.6 X10*3/uL (0.1-1.2); Monocytes Percent Auto 8.4 % (2-11); Neutrophils Percent Auto 66.9 % (45-73); PLT CLUMP 1; Red Blood Count 4.51 X10*6/uL (4.60-5.80); Red Cell Distribution Width 12.5 % (11.0-16.0); SCAN SMEAR FLAG 1
[2022-04-08 07:14] LABS: Anion Gap 17 (12-20); Blood Urea Nitrogen 30 mg/dL (9-16); Calcium 9.4 mg/dL (8.4-10.2); Carbon Dioxide 19 mmol/L (22-29); Chloride 110 mmol/L (96-108); Creatinine Clr Calc Pharmacy 38.9; Estimated Glomerular Filt Rate 33; Glucose Random 87 mg/dL (60-115); Potassium 4.6 mmol/L (3.3-5.1); Sodium 141 mmol/L (135-145)
[2022-04-08 07:17] LABS: Magnesium 2.5 mg/dL (1.6-2.6)
--- NOTE | 2022-04-08 07:20 | PC.NURSE ---
report received- pt aware of plan of care for admission to hospital. pt sitting up at this time, eating breakfast. denied having any questions.
[2022-04-08 07:27] LABS: Platelet Count 192 X10*3/uL (160-400); SLIDE REVIEW VERIFIED; White Blood Count 7.5 X10*3/uL (4.8-10.8)
[2022-04-08 07:54] LABS: Folate > 20.0 ng/mL (> or = 4.0); Vitamin B12 1083 pg/mL (200-900)
[2022-04-08] MEDS: Gabapentin 400 MG CAPSULE PO ×3 (08:25→21:17)
[2022-04-08] MEDS: Multivitamin TABLET 1 TAB PO (08:25)
[2022-04-08] MEDS: lisinopriL 20 MG TABLET PO (08:25)
[2022-04-08] MEDS: Gabapentin 100 MG CAPSULE 200 MG PO ×3 (08:25→21:17)
[2022-04-08] MEDS: Pramipexole Di-HCL 0.25 MG TABLET PO ×2 (08:26→15:44)
[2022-04-08] MEDS: Omeprazole 20 MG CAPSULE.DR PO ×2 (08:26→21:17)
[2022-04-08] MEDS: lamoTRIgine 100 MG TABLET 200 MG PO ×2 (08:26→21:17)
[2022-04-08] MEDS: Finasteride 5 MG TABLET PO (08:26)
[2022-04-08] MEDS: Cholecalciferol (Vitamin D3) 10 MCG TABLET PO (08:26)
[2022-04-08] MEDS: polyethylene glycoL 3350 17 GM POWD.PACK PO (08:27)
[2022-04-08] MEDS: QUEtiapine Fumarate 25 MG TABLET PO (08:35)
--- NOTE | 2022-04-08 09:35 | PC.NURSE ---
pt responding to internal stimuli
--- NOTE | 2022-04-08 11:29 | PC.NURSE ---
pt denies SI thoughts to this rn. states he had them yesterday but continually has them due to his depression.denies having a plan or any intent.
--- NOTE | 2022-04-08 11:43 | PC.NURSE ---
sitter at bedside. care team aware
--- NOTE | 2022-04-08 11:50 | HO.PM.IMPN ---
Subjective Subjective Date of Service: 04/08/22 Review of Systems Follow up ADORE NO pain c/o SI Physical Exam Vital Signs: Vital Signs: Last Vital Signs Temp 97.6 F 04/08/22 11:44 Pulse 78 04/08/22 11:44 Resp 22 H 04/08/22 11:44 BP 149/76 H 04/08/22 11:44 Pulse Ox 98 04/08/22 11:44 BMI result Body Mass Index 27.1 Appearing in no acute distress lung sounds are clear to auscultation heart regular rate rhythm, clear S1, S2 positive bowel sounds, abdomen is soft, nontender neuro patient is alert x3, no focal deficits, slow to respond Objective Data Active Medications Acetaminophen (Acetaminophen 325 Mg Tablet) 650 mg PO Q6H PRN PRN Reason: Pain, Mild (Pain Scale 1-3) Albuterol Sulfate (Albuterol Sulfate 90 Mcg 8 Gm Inhaler) 2 puff INHALE Q6H PRN PRN Reason: Wheezing Artificial Tears (Artificial Tears 15 Ml Drops) 1 drop EYE-BOTH Q1H PRN PRN Reason: Dry Eyes Finasteride (Finasteride 5 Mg Tablet) 5 mg PO DAILY [facility] Last Admin: 04/08/22 08:26 Dose: 5 mg Documented by: KENAN Gabapentin (Gabapentin 400 Mg Capsule) 400 mg PO TID [facility] Last Admin: 04/08/22 08:25 Dose: 400 mg Documented by: KENAN Gabapentin (Gabapentin 100 Mg Capsule) 200 mg PO TID [facility] Last Admin: 04/08/22 08:25 Dose: 200 mg Documented by: KENAN Heparin Sodium (Porcine) (Heparin Sodium,Porcine 5,000 Unit/Ml Vial) 5,000 unit SUBCUT Q8H [facility] Last Admin: 04/08/22 08:27 Dose: 5,000 unit Documented by: KENAN Sodium Chloride (Ns) 1,000 mls @ 100 mls/hr IVCONT .Q10H [facility] Last Admin: 04/08/22 08:32 Dose: 100 mls/hr Documented by: KENAN Lamotrigine (Lamotrigine 100 Mg Tablet) 200 mg PO BID [facility] Last Admin: 04/08/22 08:26 Dose: 200 mg Documented by: KENAN Latanoprost (Latanoprost 0.005 % Ophth No 2.5 Ml Drops) 1 drop EYE-BOTH BEDTIME [facility] Lisinopril (Lisinopril 20 Mg Tablet) 20 mg PO DAILY [facility]; Protocol Last Admin: 04/08/22 08:25 Dose: 20 mg Documented by: KENAN Lorazepam (Lorazepam 0.5 Mg Tablet) 0.5 mg PO Q6H PRN PRN Reason: Anxiety Melatonin (Melatonin 3 Mg Tablet) 6 mg PO BEDTIME PRN PRN Reason: Insomnia Multivitamins/Vitamin C (Multivitamin Tablet) 1 tab PO DAILY [facility] Last Admin: 04/08/22 08:25 Dose: 1 tab Documented by: KENAN Nortriptyline HCl (Nortriptyline Hcl 25 Mg Capsule) 125 mg PO BEDTIME [facility] Omeprazole (Omeprazole 20 Mg Capsule.Dr) 20 mg PO BID [facility] Last Admin: 04/08/22 08:26 Dose: 20 mg Documented by: KENAN Pharmacy Consult (Consult Rx Perform Med Rec) 1 each MISCELLANE ONCE PRN PRN Reason: Consult order Polyethylene Glycol (Polyethylene Glycol 3350 17 Gm Powd.Pack) 17 gm PO DAILY [facility] Last Admin: 04/08/22 08:27 Dose: 17 gm Documented by: KENAN Pramipexole Dihydrochloride (Pramipexole Di-Hcl 0.25 Mg Tablet) 0.25 mg PO TID [facility] Last Admin: 04/08/22 08:26 Dose: 0.25 mg Documented by: KENAN Quetiapine Fumarate (Quetiapine Fumarate 25 Mg Tablet) 25 mg PO DAILY [facility] Last Admin: 04/08/22 08:35 Dose: 25 mg Documented by: KENAN Senna (Sennosides 8.6 Mg Tablet) 17.2 mg PO BEDTIME PRN PRN Reason: Constipation Sodium Chloride (0.9 % Sodium Chloride Flush 3 Ml Syringe) 3 ml IVFLUSH QSHIFT [facility] Last Admin: 04/08/22 08:26 Dose: Not Given Documented by: KENAN Non-Admin Reason: IV Running Trazodone HCl (Trazodone Hcl 50 Mg Tablet) 150 mg PO BEDTIME PRN PRN Reason: Sleep Vitamin D (Cholecalciferol (Vitamin D3) 10 Mcg Tablet) 10 mcg PO DAILY [facility] Last Admin: 04/08/22 08:26 Dose: 10 mcg Documented by: KENAN Labs CBC & Chem 7: 04/08/22 06:48 04/08/22 06:48 Labs: Laboratory Results - last 24 hr 04/07/22 04/07/22 04/07/22 19:54 19:54 20:59 MCV 98.1 H MCH 32.6 MCHC 33.3 RDW 12.6 Plt Count 252 MPV 9.4 Immature Gran % (Auto) 0.9 H Neut % (Auto) 76.2 H Lymph % (Auto) 12.5 L [place] % (Auto) 9.4 Eos % (Auto) 0.6 Baso % (Auto) 0.4 Lymph # (Auto) 1.4 [place] # (Auto) 1.1 Eos # (Auto) 0.1 Baso # (Auto) 0.1 Abs Immat Gran (auto) 0.10 H Absolute Neuts (auto) 8.5 H Absolute Nucleated RBC 0.000 Nucleated RBC % (auto) 0.0 Smear Tech's Comments Anion Gap 16 Estim Creat Clear Calc 35.1 Estimated GFR 29 POC Glucose 102 Random Glucose 100 Lactic Acid Calcium 8.6 Magnesium 2.2 Total Bilirubin 0.6 AST 27 ALT 35 Alkaline Phosphatase 78 Troponin I High Sens Total Protein 6.2 L Albumin 3.9 Vitamin B12 Folate TSH 1.47 COVID-19 (RACHEL) [employer] 04/07/22 04/07/22 04/08/22 23:09 23:09 01:00 MCV MCH MCHC RDW Plt Count MPV Immature Gran % (Auto) Neut % (Auto) Lymph % (Auto) [place] % (Auto) Eos % (Auto) Baso % (Auto) Lymph # (Auto) [place] # (Auto) Eos # (Auto) Baso # (Auto) Abs Immat Gran (auto) Absolute Neuts (auto) Absolute Nucleated RBC Nucleated RBC % (auto) Smear Tech's Comments Anion Gap 20 Estim Creat Clear Calc 32.5 Estimated GFR 27 POC Glucose Random Glucose 104 Lactic Acid 1.4 Calcium 9.0 Magnesium Total Bilirubin AST ALT Alkaline Phosphatase Troponin I High Sens 3.6 Total Protein Albumin Vitamin B12 Folate TSH COVID-19 (RACHEL) [employer] 04/08/22 04/08/22 04/08/22 01:03 06:48 06:48 MCV 100.2 H MCH 32.2 MCHC 32.1 RDW 12.5 Plt Count 192 MPV Not Reportable Immature Gran % (Auto) 0.9 H Neut % (Auto) 66.9 Lymph % (Auto) 22.1 [place] % (Auto) 8.4 Eos % (Auto) 1.2 Baso % (Auto) 0.5 Lymph # (Auto) 1.7 [place] # (Auto) 0.6 Eos # (Auto) 0.1 Baso # (Auto) 0.0 Abs Immat Gran (auto) 0.07 H Absolute Neuts (auto) 5.0 Absolute Nucleated RBC 0.000 Nucleated RBC % (auto) 0.0 Smear Tech's Comments VERIFIED Anion Gap 17 Estim Creat Clear Calc 38.9 Estimated GFR 33 POC Glucose Random Glucose 87 Lactic Acid Calcium 9.4 Magnesium Total Bilirubin AST ALT Alkaline Phosphatase Troponin I High Sens Total Protein Albumin Vitamin B12 Folate TSH COVID-19 (RACHEL) Negative COVID-19 Clin Com See Note 04/08/22 04/08/22 06:48 06:48 MCV MCH MCHC RDW Plt Count MPV Immature Gran % (Auto) Neut % (Auto) Lymph % (Auto) [place] % (Auto) Eos % (Auto) Baso % (Auto) Lymph # (Auto) [place] # (Auto) Eos # (Auto) Baso # (Auto) Abs Immat Gran (auto) Absolute Neuts (auto) Absolute Nucleated RBC Nucleated RBC % (auto) Smear Tech's Comments Anion Gap Estim Creat Clear Calc Estimated GFR POC Glucose Random Glucose Lactic Acid Calcium Magnesium 2.5 Total Bilirubin AST ALT Alkaline Phosphatase Troponin I High Sens Total Protein Albumin Vitamin B12 1083 H Folate > 20.0 TSH COVID-19 (RACHEL) COVID-19 Clin Com Assessment and Plan (1) ADORE (acute kidney injury): Status: Acute Plan 66-year-old male with a past medical history of hypertension, seizure disorder, anxiety, depression, TIA, history of traumatic brain injury/ subdural hematoma; presented to the hospital today with a chief complaint of drowsy/ lethargy/altered mental status. ADORE likely from hypoperfusion secondary to hypotension trending down continue IV fluids Hypotension ? volume depletion resolved IV fluids Acute metabolic encephalopathy ? secondary to hypotension vs polypharmacy (patient denies this) CXR neg, UA pending head CT neg History of anxiety / depression / bipolar/ seizure disorder with SI will need 1:1 BHN when medically cleared Continue home medications nortriptyline, lamotrigine, gabapentin, pramipexole. DVT prophylaxis:? Subcu heparin Attending Dr. Kramer Code status:? Full code Quality Stroke Does the patient have a stroke diagnosis?: No VTE Prior VTE?: No VTE Risk Level:: Medical - moderate - high VTE Device Contraindication: Treatment Not Indicated VTE Drug Contraindication: N/A - Med Ordered
--- NOTE | 2022-04-08 11:51 | MHC.CM.PN ---
Attempted to meet with patient in regards to discharge planning. Patient is currently confused. Spoke with patient's HCP, Patti via telephone at [phone]. Patient lives in a [facility] [place] [facility] due to TBI. Patient has been experiencing increased confusion recently. Patient barely ambulates. He mostly uses a wheelchair. PCP verified. Copy of HCP verified to be on file. Patti verified that HCP is not officially invoked. Patient received 3 Pfizer vaccines. IMM explained and sent via email at Patti's request. Anticipate patient will return to the [place] [facility] via BLS when medically stable. Patti doesn't feel STR would be beneficial to patient is he is at the same mobility ability as when he is admitted to the hospital. Continue to monitor for d/c needs.
--- NOTE | 2022-04-08 12:10 | PC.NURSE ---
tyler [phone] SIZE MARKER
--- NOTE | 2022-04-08 13:50 | MHC.CARE ---
Pt is a 66 year old , Lebanese speaking; male who is previously known to the CARE Team through prior assessments and inpatient stays.? Yesterday, pt was brought to the ED via ambulance for stroke like sx including increased lethargy, questionable facial droop, and increased anxiety.? Pt?s nurse contacted CARE Team to conduct a risk assessment as pt had made SI statements.? At 1129AM, and according to nurse?s notes, pt denied SI.? Pt presently has a patient observer at bedside. Pt has not been medically cleared and is presently awaiting admission to the [facility] floors. Pt is alert and oriented x4 and is assessed in his room in the Main ED.? He appears well groomed and is dressed in his personal attire.? He appears his stated age.? Pt is engaged in the assessment and presented differently than the last times this leader writer has encountered this pt.? Pt endorses SI, with a plan that is being ?Formulated.?? He states that he intends to cut his wrists ?Not horizontally because you can stop the blood flow? by ?Vertically so you open the veins up.?? He expressed that he plan to sit and ?Let my body bleed out.?? He reported that he purchased some razor blades at [employer] that were being sold in the paint supply section.? He stated ?The stickers said take me home Samanta, so I did.?? He stated that he has them concealed somewhere and would not disclose where. His mood is described as ?depressed?.? He has reported, in past interactions, ever present depression to varying degrees, ?for years.? He does not appear to be delusional or experiencing symptoms of psychosis.? Insight, judgement, impulse control, memory and concentration appear poor.? Pt appears to have a plan, intent, and a means to carry out his plan for completing suicide. CARE Team contacted the prison to advise them of pt?s statements regarding the concealed razor blades. CARE Team is available for an assessment when pt is medically cleared.
--- NOTE | 2022-04-08 14:38 | PC.NURSE ---
tyler called to state she should be the only one contacted regarding pt [phone]
[2022-04-08] MEDS: LORazepam 0.5 MG TABLET PO (15:47)
[2022-04-08 16:11] LABS: Appearance Urine CLEAR; Color Urine DK YELLOW; Glucose Urine UA NEG (NEG); Leukocyte Esterase Urine NEG (NEG); Nitrite Urine POS (NEG); PH 5.5 (5.0-8.0); Specific Gravity - Urine >= 1.030 (1.005-1.025); UACC Culture Trigger YES; Urine Blood NEG (NEG); Urine Ketones 5 MG/DL (NEG); Urine Protein 1+ MG/DL (NEG-TRACE)
[2022-04-08 16:49] LABS: Bacteria Urine 3+ /LPF; Mucus Urine TRACE /LPF; Squamous Epithelial Cell Urine TRACE /LPF
--- NOTE | 2022-04-08 20:22 | PC.NURSE ---
Report given to RADHA Luther in [place].
[2022-04-08] MEDS: traZODone HCL 50 MG TABLET 150 MG PO (21:19)
[2022-04-08] MEDS: Nortriptyline HCl 25 MG CAPSULE 125 MG PO (21:20)
--- NOTE | 2022-04-08 23:23 | PC.NURSE ---
Addendum entered by Homa Truong 04/09/22 07:03: Report given to RADHA Arce Original Note: Report received from RADHA Young. pt is alert and oriented x2. resting in bed. sitter by bedside. no acute distress notice. breathing equally unlabored. pt on continuous cardiac monitoring
[2022-04-09] MEDS: 0.9 % Sodium Chloride 1,000 ML 100 ML IVCONT (05:48)
[2022-04-09 05:49] VITALS: BP 142/75; PULSE 62; RESP 16; TEMP 36.2; O2SAT 97
[2022-04-09 07:43] LABS: Hemoglobin 12.9 g/dl (14.0-18.0); Mean Corpuscular HGB Conc 33.1 g/dl (31.0-36.0); Mean Corpuscular Hemoglobin 32.3 pg (27.0-33.0); Mean Corpuscular Volume 97.5 fL (80.0-98.0); Platelet Count 184 X10*3/uL (160-400); Red Cell Distribution Width 12.2 % (11.0-16.0); White Blood Count 5.7 X10*3/uL (4.8-10.8)
[2022-04-09 07:54] LABS: Anion Gap 10 (12-20); Blood Urea Nitrogen 18 mg/dL (9-16); Calcium 9.4 mg/dL (8.4-10.2); Carbon Dioxide 26 mmol/L (22-29); Chloride 108 mmol/L (96-108); Creatinine Clr Calc Pharmacy 81.1; Estimated Glomerular Filt Rate > 60; Glucose Random 99 mg/dL (60-115); Potassium 4.5 mmol/L (3.3-5.1); Sodium 139 mmol/L (135-145)
[2022-04-09 08:00] VITALS: BP 166/86; PULSE 70; RESP 13; TEMP 36.7; O2SAT 96
--- NOTE | 2022-04-09 10:32 | P.PNIM_ITS ---
Subjective Subjective Date of Service: 04/09/22 Interval History: seen and examined this AM denies active SI, but reports not feeling safe by himself does not recall events which transpired that brought him here physically feels himself Review of Systems negative except HPI Physical Exam Vital Signs: Vital Signs: Last Vital Signs Temp 98.0 F 04/09/22 08:00 Pulse 70 04/09/22 08:00 Resp 13 04/09/22 08:00 BP 166/86 H 04/09/22 08:00 Pulse Ox 96 04/09/22 08:00 BMI result Body Mass Index 27.1 Objective Data Active Medications Acetaminophen (Acetaminophen 325 Mg Tablet) 650 mg PO Q6H PRN PRN Reason: Pain, Mild (Pain Scale 1-3) Albuterol Sulfate (Albuterol Sulfate 90 Mcg 8 Gm Inhaler) 2 puff INHALE Q6H PRN PRN Reason: Wheezing Artificial Tears (Artificial Tears 15 Ml Drops) 1 drop EYE-BOTH Q1H PRN PRN Reason: Dry Eyes Finasteride (Finasteride 5 Mg Tablet) 5 mg PO DAILY [facility] Last Admin: 04/08/22 08:26 Dose: 5 mg Documented by: KENAN Gabapentin (Gabapentin 400 Mg Capsule) 400 mg PO TID [facility] Last Admin: 04/08/22 21:17 Dose: 400 mg Documented by: GHADA-ANICL Gabapentin (Gabapentin 100 Mg Capsule) 200 mg PO TID [facility] Last Admin: 04/08/22 21:17 Dose: 200 mg Documented by: GHADA-ANICL Heparin Sodium (Porcine) (Heparin Sodium,Porcine 5,000 Unit/Ml Vial) 5,000 unit SUBCUT Q8H [facility] Last Admin: 04/08/22 23:21 Dose: Not Given Documented by: GHADA-ANICL Non-Admin Reason: Patient Refused Lamotrigine (Lamotrigine 100 Mg Tablet) 200 mg PO BID [facility] Last Admin: 04/08/22 21:17 Dose: 200 mg Documented by: GHADA-ANICL Latanoprost (Latanoprost 0.005 % Ophth No 2.5 Ml Drops) 1 drop EYE-BOTH BEDTIME [facility] Last Admin: 04/08/22 23:18 Dose: Not Given Documented by: N-ANICL Non-Admin Reason: Med Not Available Lisinopril (Lisinopril 20 Mg Tablet) 20 mg PO DAILY [facility]; Protocol Last Admin: 04/08/22 08:25 Dose: 20 mg Documented by: KENAN Lorazepam (Lorazepam 0.5 Mg Tablet) 0.5 mg PO Q6H PRN PRN Reason: Anxiety Last Admin: 04/08/22 15:47 Dose: 0.5 mg Documented by: KENAN Melatonin (Melatonin 3 Mg Tablet) 6 mg PO BEDTIME PRN PRN Reason: Insomnia Multivitamins/Vitamin C (Multivitamin Tablet) 1 tab PO DAILY [facility] Last Admin: 04/08/22 08:25 Dose: 1 tab Documented by: KENAN Nortriptyline HCl (Nortriptyline Hcl 25 Mg Capsule) 125 mg PO BEDTIME [facility] Last Admin: 04/08/22 21:20 Dose: 125 mg Documented by: GHADA-NASIMA Omeprazole (Omeprazole 20 Mg Capsule.Dr) 20 mg PO BID [facility] Last Admin: 04/08/22 21:17 Dose: 20 mg Documented by: DORYS Pharmacy Consult (Consult Rx Perform Med Rec) 1 each MISCELLANE ONCE PRN PRN Reason: Consult order Polyethylene Glycol (Polyethylene Glycol 3350 17 Gm Powd.Pack) 17 gm PO DAILY [facility] Last Admin: 04/08/22 08:27 Dose: 17 gm Documented by: KENAN Pramipexole Dihydrochloride (Pramipexole Di-Hcl 0.25 Mg Tablet) 0.25 mg PO TID [facility] Last Admin: 04/08/22 23:19 Dose: Not Given Documented by: GHADA-FAITHICL Non-Admin Reason: Patient Refused Quetiapine Fumarate (Quetiapine Fumarate 25 Mg Tablet) 25 mg PO DAILY [facility] Last Admin: 04/08/22 08:35 Dose: 25 mg Documented by: KENAN Senna (Sennosides 8.6 Mg Tablet) 17.2 mg PO BEDTIME PRN PRN Reason: Constipation Sodium Chloride (0.9 % Sodium Chloride Flush 3 Ml Syringe) 3 ml IVFLUSH QSHIFT [facility] Last Admin: 04/08/22 23:25 Dose: Not Given Documented by: GHADA-FAITHICL Non-Admin Reason: IV Running Trazodone HCl (Trazodone Hcl 50 Mg Tablet) 150 mg PO BEDTIME PRN PRN Reason: Sleep Last Admin: 04/08/22 21:19 Dose: 150 mg Documented by: N-ANICL Vitamin D (Cholecalciferol (Vitamin D3) 10 Mcg Tablet) 10 mcg PO DAILY [facility] Last Admin: 04/08/22 08:26 Dose: 10 mcg Documented by: KENAN Labs CBC & Chem 7: 04/09/22 07:30 04/09/22 07:30 Labs: Laboratory Results - last 24 hr 04/08/22 04/09/22 04/09/22 15:51 07:30 07:30 MCV 97.5 MCH 32.3 MCHC 33.1 RDW 12.2 Plt Count 184 MPV 9.0 L Absolute Nucleated RBC 0.000 Nucleated RBC % (auto) 0.0 Anion Gap 10 L Estim Creat Clear Calc 81.1 Estimated GFR > 60 Random Glucose 99 Calcium 9.4 Urine Color DK YELLOW Urine Appearance CLEAR Urine pH 5.5 Ur Specific [place] >= 1.030 H Urine Protein 1+ H Urine Glucose (UA) NEG Urine Ketones 5 Urine Blood NEG Urine Nitrite POS H Ur Leukocyte Esterase NEG Urine RBC 1-4 Urine WBC 5-9 H Ur Squamous Epith Cells TRACE Urine Bacteria 3+ Urine Mucus TRACE Microbiology Microbiology Results: Microbiology 04/07/22 23:07 Blood Culture - Preliminary Blood - Venous No growth after 24 hours. 04/07/22 23:09 Blood Culture - Preliminary Blood - Venous No growth after 24 hours. Assessment and Plan (1) ADORE (acute kidney injury): Status: Acute Plan This is a 66 yo M who is a resident of a skilled nursing with a PMH of HTN, seizures d/o, anxiety, depression, TIA, TBI who presented to the hospital with changes in mental status. He was noted to be hypotensive with ADORE. 1. ADORE suspected due to hypoperfusion from hypotension now resolved and SCr wnl stop IVF 2. Hypotension no foci of infection unclear what the cause of this was; he is on norvasc 5mg and lisinopril 40mg at skilled nursing per his reports) lisinopril 20mg has been restarted BP in the 160s -- will keep the same dose for now and increase slowly 3. Acute toxic/metabolic encephalopathy likely due to ADORE / hypotension resolve and pt appears to be at baseline 4. Suicidal ideation per reports on admission; pt currently denies active SI, but does not feel safe to be by himself;' denies any plans medically cleared -- will get CARE team invovled 5. Mood continue his baseline meds Full Code DVT pptx, subcut. heparin dispo: skilled nursing vs inpatient psych; pending CARE team eval Quality Stroke Does the patient have a stroke diagnosis?: No VTE Prior VTE?: No VTE Risk Level:: Medical - moderate - high VTE Device Contraindication: Treatment Not Indicated VTE Drug Contraindication: N/A - Med Ordered
[2022-04-09] MEDS: lisinopriL 20 MG TABLET PO (10:49)
[2022-04-09] MEDS: Omeprazole 20 MG CAPSULE.DR PO ×2 (10:49→20:46)
[2022-04-09] MEDS: Finasteride 5 MG TABLET PO (10:49)
[2022-04-09] MEDS: Gabapentin 400 MG CAPSULE PO ×3 (10:50→20:45)
[2022-04-09] MEDS: Gabapentin 100 MG CAPSULE 200 MG PO ×3 (10:50→20:45)
[2022-04-09] MEDS: Multivitamin TABLET 1 TAB PO (10:50)
[2022-04-09] MEDS: Cholecalciferol (Vitamin D3) 10 MCG TABLET PO (10:50)
[2022-04-09] MEDS: Pramipexole Di-HCL 0.25 MG TABLET PO ×3 (10:50→20:46)
[2022-04-09] MEDS: Heparin Sodium,Porcine 5,000 UNIT/ML VIAL 5000 UNIT SUBCUT ×2 (10:51→18:20)
[2022-04-09] MEDS: polyethylene glycoL 3350 17 GM POWD.PACK PO (10:51)
[2022-04-09] MEDS: lamoTRIgine 100 MG TABLET 200 MG PO ×2 (10:51→20:46)
[2022-04-09] MEDS: QUEtiapine Fumarate 25 MG TABLET PO (11:04)
[2022-04-09 12:17] VITALS: BP 175/94; PULSE 77; RESP 19; TEMP 37.1; O2SAT 100
[2022-04-09] MEDS: LORazepam 0.5 MG TABLET PO ×2 (12:40→18:16)
[2022-04-09 16:00] VITALS: BP 137/81; PULSE 79; RESP 17; TEMP 36.9; O2SAT 98
--- NOTE | 2022-04-09 16:48 | PC.NURSE ---
pt alert and oriented to person and place. requiring redirection from observer and staff, pt minimally responsive. pt appears restless/increasingly agitated. threatening staff with breaking all hell loose. pt is requesting to go outside for fresh air, and to get more ativan. pt pending BHN after making SI statements - pt wishes to go to [facility]. provider notified.
[2022-04-09] MEDS: Acetaminophen 325 MG TABLET 650 MG PO (18:18)
--- NOTE | 2022-04-09 18:27 | PC.NURSE ---
medicated per provider order. given prn tylenol for back/hip pain and ativan for increased anxiety.
--- NOTE | 2022-04-09 19:03 | PC.NURSE ---
Addendum entered by Homa Truong 04/10/22 06:55: Report given to RADHA Naranjo Addendum entered by Homa Truong 04/10/22 06:45: Dr. Mayberry made aware that pt is making HI statement you be casimiro if you make it through the day , I will slide your throat . Addendum entered by Homa Truong 04/10/22 02:32: pt became increasely agitated, trying to get out of bed. pt re-directed to stay in his bed for safety. security called to bedside. DR. Mayberry made aware Original Note: report received from RADHA Dejesus
[2022-04-09 19:26] VITALS: BP 148/83; PULSE 75; RESP 15; TEMP 37; O2SAT 95
[2022-04-09] MEDS: traZODone HCL 50 MG TABLET 150 MG PO (20:46)
[2022-04-09] MEDS: Latanoprost 0.005 % Ophth Sol 2.5 ML DROPS 1 DROP EYE-BOTH (20:46)
[2022-04-09] MEDS: Nortriptyline HCl 25 MG CAPSULE 125 MG PO (20:46)
--- NOTE | 2022-04-09 22:43 | MHC.CARE ---
Pt seen by the CARE Team. Pt is known to [facility] from a previous admission. He states that he was discharged from [facility] and went to [facility] and lasted a total of 7 days. It was an unpleasant experience . He states he returned back to his fci. He tells this fiction writer that he has been a patient of Dr. Haskins since 2005 and states he has a very good relationship with him. Pt reports I want to go to [facility] but I called down there earlier and there are no beds , he states I have to get out of here, this environment is a sole killer. I have no windows, and I need fresh air. There is no way in hell I want to stay here for the long weekend . Pt denies current SI, however states I have occasional SI, but not at the moment. pt states I am my own worst enemy. But I am suffocating here . Pt wants to d/c back to his fci and tells this fiction writer to call Daniel. Pt states I've been asking to speak to Dr. Haskins, I'm not leaving until I do. CARE team spoke to Daniel who shares concerns about pt's SI statements yesterday, however does report pt switches on and off . She states he was at [facility] twice recently and then yesterday told CARE team staff he was suicidal with plan and intent. She reports she searched his belongings and there was nothing in his belongings. Kimberly requests to speak to Dr. Haskins tomorrow and states she will be calling his office as well to talk to Dr. Haskins. Plan is for CARE team to speak with Dr. Haskins to determine if pt will need an admission or can discharge back to his fci. Based on my interaction with him today, pt denies any SI and advocating to return to his 24/7 staffed fci. Nursing staff report pt has been agitated, however only based on not getting what he wants, demanding, threatening, however RADHA Dejesus states when she does not engage with him he stops.
[2022-04-10] VITALS: BP 154/79; PULSE 69; RESP 18; TEMP 36.6; O2SAT 96
[2022-04-10] MEDS: LORazepam 2 MG/ML VIAL 0.5 MG IVPUSH (02:16)
[2022-04-10] MEDS: Multivitamin TABLET 1 TAB PO (09:39)
[2022-04-10] MEDS: Finasteride 5 MG TABLET PO (09:39)
[2022-04-10] MEDS: Gabapentin 100 MG CAPSULE 200 MG PO (09:39)
[2022-04-10] MEDS: lamoTRIgine 100 MG TABLET 200 MG PO ×2 (09:39→22:11)
[2022-04-10] MEDS: Gabapentin 400 MG CAPSULE PO ×2 (09:39→22:11)
[2022-04-10] MEDS: Omeprazole 20 MG CAPSULE.DR PO ×2 (09:39→22:12)
[2022-04-10] MEDS: lisinopriL 20 MG TABLET PO (09:39)
[2022-04-10] MEDS: Pramipexole Di-HCL 0.25 MG TABLET PO ×2 (09:40→22:12)
[2022-04-10] MEDS: QUEtiapine Fumarate 25 MG TABLET PO (09:40)
[2022-04-10] MEDS: Cholecalciferol (Vitamin D3) 10 MCG TABLET PO (09:40)
[2022-04-10] MEDS: polyethylene glycoL 3350 17 GM POWD.PACK PO (09:40)
[2022-04-10] MEDS: Heparin Sodium,Porcine 5,000 UNIT/ML VIAL 5000 UNIT SUBCUT ×2 (09:40→23:40)
[2022-04-10] MEDS: LORazepam 0.5 MG TABLET PO (09:56)
--- NOTE | 2022-04-10 10:03 | PC.NURSE ---
seen by psych this am, also visited by hospitalist. pt continues to make si statements to this rn and other staff, when asked pts birthday for medication admin, pt sts people dont have birthdays, im not going to have a birthday soon .
--- NOTE | 2022-04-10 12:33 | HO.PM.IMPN ---
Subjective Subjective Date of Service: 04/10/22 Interval History: seen and examined this AM no medical complaints this AM other than chronic pain Review of Systems negative except HPI Physical Exam Vital Signs: Vital Signs: Last Vital Signs Temp 97.8 F 04/10/22 00:00 Pulse 69 04/10/22 00:00 Resp 18 04/10/22 00:00 BP 154/79 H 04/10/22 00:00 Pulse Ox 96 04/10/22 00:00 BMI result Body Mass Index 27.1 Const: Other: General - no acute distress, appears comfortable Cardiovascular - regular rate and rhythm, S1-S2 Lungs - normal respiratory effort, clear to auscultation bilaterally, no wheezing Abdomen - soft, nontender, no rebound or guarding Extremities - no edema bilaterally Neuro - awake and alert, no focal deficits Objective Data Active Medications Acetaminophen (Acetaminophen 325 Mg Tablet) 650 mg PO Q6H PRN PRN Reason: Pain, Mild (Pain Scale 1-3) Last Admin: 04/09/22 18:18 Dose: 650 mg Documented by: VILMA Albuterol Sulfate (Albuterol Sulfate 90 Mcg 8 Gm Inhaler) 2 puff INHALE Q6H PRN PRN Reason: Wheezing Artificial Tears (Artificial Tears 15 Ml Drops) 1 drop EYE-BOTH Q1H PRN PRN Reason: Dry Eyes Finasteride (Finasteride 5 Mg Tablet) 5 mg PO DAILY [facility] Last Admin: 04/10/22 09:39 Dose: 5 mg Documented by: FCO Gabapentin (Gabapentin 400 Mg Capsule) 400 mg PO TID [facility] Last Admin: 04/10/22 09:39 Dose: 400 mg Documented by: FCO Gabapentin (Gabapentin 100 Mg Capsule) 200 mg PO TID [facility] Last Admin: 04/10/22 09:39 Dose: 200 mg Documented by: FCO Heparin Sodium (Porcine) (Heparin Sodium,Porcine 5,000 Unit/Ml Vial) 5,000 unit SUBCUT Q8H [facility] Last Admin: 04/10/22 09:40 Dose: 5,000 unit Documented by: FCO Lamotrigine (Lamotrigine 100 Mg Tablet) 200 mg PO BID [facility] Last Admin: 04/10/22 09:39 Dose: 200 mg Documented by: FCO Latanoprost (Latanoprost 0.005 % Ophth No 2.5 Ml Drops) 1 drop EYE-BOTH BEDTIME [facility] Last Admin: 04/09/22 20:46 Dose: 1 drop Documented by: GHADA-FAITHICL Lisinopril (Lisinopril 20 Mg Tablet) 20 mg PO DAILY [facility]; Protocol Last Admin: 04/10/22 09:39 Dose: 20 mg Documented by: FCO Lorazepam (Lorazepam 0.5 Mg Tablet) 0.5 mg PO Q6H PRN PRN Reason: Anxiety Last Admin: 04/10/22 09:56 Dose: 0.5 mg Documented by: FCO Melatonin (Melatonin 3 Mg Tablet) 6 mg PO BEDTIME PRN PRN Reason: Insomnia Multivitamins/Vitamin C (Multivitamin Tablet) 1 tab PO DAILY [facility] Last Admin: 04/10/22 09:39 Dose: 1 tab Documented by: FCO Nortriptyline HCl (Nortriptyline Hcl 25 Mg Capsule) 125 mg PO BEDTIME [facility] Last Admin: 04/09/22 20:46 Dose: 125 mg Documented by: DORYS Omeprazole (Omeprazole 20 Mg Capsule.Dr) 20 mg PO BID [facility] Last Admin: 04/10/22 09:39 Dose: 20 mg Documented by: FCO Pharmacy Consult (Consult Rx Perform Med Rec) 1 each MISCELLANE ONCE PRN PRN Reason: Consult order Polyethylene Glycol (Polyethylene Glycol 3350 17 Gm Powd.Pack) 17 gm PO DAILY [facility] Last Admin: 04/10/22 09:40 Dose: 17 gm Documented by: FCO Pramipexole Dihydrochloride (Pramipexole Di-Hcl 0.25 Mg Tablet) 0.25 mg PO TID [facility] Last Admin: 04/10/22 09:40 Dose: 0.25 mg Documented by: FCO Quetiapine Fumarate (Quetiapine Fumarate 25 Mg Tablet) 25 mg PO DAILY [facility] Last Admin: 04/10/22 09:40 Dose: 25 mg Documented by: FCO Senna (Sennosides 8.6 Mg Tablet) 17.2 mg PO BEDTIME PRN PRN Reason: Constipation Sodium Chloride (0.9 % Sodium Chloride Flush 3 Ml Syringe) 3 ml IVFLUSH QSHIFT [facility] Last Admin: 04/10/22 07:31 Dose: Not Given Documented by: FCO Non-Admin Reason: Med Not Available Trazodone HCl (Trazodone Hcl 50 Mg Tablet) 150 mg PO BEDTIME PRN PRN Reason: Sleep Last Admin: 04/09/22 20:46 Dose: 150 mg Documented by: N-ANICL Vitamin D (Cholecalciferol (Vitamin D3) 10 Mcg Tablet) 10 mcg PO DAILY [facility] Last Admin: 04/10/22 09:40 Dose: 10 mcg Documented by: FCO Labs CBC & Chem 7: 04/09/22 07:30 04/09/22 07:30 Microbiology Microbiology Results: Microbiology 04/08/22 15:51 Urine Culture - Final Urine clean catch - Urine munoz top Staphylococcus epidermidis 04/07/22 23:09 Blood Culture - Preliminary Blood - Venous No growth after 48 hours. 04/07/22 23:07 Blood Culture - Preliminary Blood - Venous No growth after 48 hours. Assessment and Plan (1) ADORE (acute kidney injury): Status: Acute Plan This is a 66 yo M who is a resident of a longterm with a PMH of HTN, seizures d/o, anxiety, depression, TIA, TBI who presented to the hospital with changes in mental status. He was noted to be hypotensive with ADORE. 1. ADORE suspected due to hypoperfusion from hypotension now resolved and SCr wnl 2. Hypotension resolved no foci of infection unclear what the cause of this was; he is on norvasc 5mg and lisinopril 40mg at longterm per his reports) BP now elevated, but acceptable -- continue lisinopril 20mg 3. Acute toxic/metabolic encephalopathy likely due to ADORE / hypotension resolve and pt appears to be at baseline 4. Suicidal ideation per reports on admission; pt currently denies active SI, but does not feel safe to be by himself;' denies any plans medically cleared -- await CARE/psych input 5. Mood continue his baseline meds 6. Staph Epi in urine no symptoms, likely contaminant blood cx negative Full Code DVT pptx, subcut. heparin dispo: longterm vs inpatient psych; pending CARE team/psych eval Quality Stroke Does the patient have a stroke diagnosis?: No VTE Prior VTE?: No VTE Risk Level:: Medical - moderate - high VTE Device Contraindication: Treatment Not Indicated VTE Drug Contraindication: N/A - Med Ordered
[2022-04-10 12:39] VITALS: BP 168/97; PULSE 73; RESP 16; O2SAT 96
--- NOTE | 2022-04-10 13:51 | MHC.CARE ---
CARE Team met with Pt as a follow up. Pt is expressing discord being in overflow and stating that is feels like halfway . Pt was upset regarding the restraint that occurred last evening? Pt reports wanting to be discharged back to his custodial. Pt is not endorsing current SI/HI/AH/VH. CARE Team spoke with Pts group worker, Daniel ([phone]) from the [facility] who stated Pt is able to return. She stated at baseline Pt reports SI. Pt has long history of mental health and suicidal ideation. Pt currently is followed by Dr. Haskins on an outpatient basis. She stated, Pt was served a 90 day notice that he can no longer stay at his current placement. Currently D[facility] is working on alternative housing, with more support vs a custodial setting. CARE Team was in collaboration with [facility] psychiatric providers, Dr. Lynn and Alisa Durbin, [place] CARE Team updated Dr. Grider and CM. Plan for Pt to return back to his custodial.
--- NOTE | 2022-04-10 15:32 | PC.NURSE ---
per overflow [employer], care team called and stated patient is cleared to return to senior care, dr contreras has been notified, dr contreras states psych must review meds prior to the dc.
--- NOTE | 2022-04-10 15:45 | PM.DS ---
DS: Providers Provider Date of Service: 04/10/22 Date of admission: 04/07/22 23:40 Primary care physician: Wilmer Enciso MD Consults: 04/08/22 02:21 Consult to Neurology Routine Consulting Provider: [facility] Reason for consultation: AMS 04/08/22 15:59 Consult for Sitter Routine Reason for consultation: SI Has provider been notified: No 04/09/22 10:23 Consult to Care Team Routine Comment: Reason for consultation: presented with SI, now doesnt feel safe ; medically cleared 04/10/22 06:48 Consult to Psychiatry Routine Consulting Provider: Psych Covering Reason for consultation: Homicidal DS: Diagnosis Discharge Diagnosis (1) ADORE (acute kidney injury): Status: Acute (2) Hypotension: Status: Acute (3) Toxic metabolic encephalopathy: Status: Acute DS: Summary Hospital Course Hospital Course: HPI: [age]-year-old male with a past medical history of anxiety, depression, bipolar, seizure disorder, hypertension, hyperlipidemia, TIA,? Traumatic brain injury, history of subdural hematoma; use in a care home; presented to the hospital today with a chief complaint of drowsiness/ lethargy.? Most of the history obtained from the patient's primary care pediatrician at bedside; who mentions that patient discharged [facility] 2 times in the past 2 days; discharged yesterday from [facility]; patient initially went to [facility] after he called the police mentioned that he was unsafe at the home; delusional; and today patient was noted to be drowsy and lethargic already took his evening dose of Ativan.? Subsequently came to the ER for further evaluation.? Prior to that patient was also noted to be delusional, having garbled speech; denies patient having any fevers.? Denies patient complaining of any chest pain or palpitations.? Denies any fall or trauma.? Denies patient using any illicit drugs.? Review of all other systems is negative except mentioned above ER course: Per ER team on presentation noted to have normal neurological examination; CT head showed no acute findings; on labs noted to have ADORE; midodrine patient blood pressure was also drop-given IV fluids with improvement in the blood pressure.? Admitted for further management. Hospital Course: The patient was treated with IV fluids for his hypotension and ADORE + acute encephalopathy. With these measures alone, all conditions resolved. His SCr is in the normal range and his BP is now infact starting to increase. His lisinopril has been restarted and a lower dose of norsvasc 2.5mg has been ordered as well. He should stop taking ibuprofen, at least in the interim. In regards to his suicidal ideation -- he was evaluated by the CARE team and has been cleared psychiatrically for discharge. He should follow up with his outpatient providers. Time Spent with Patient Time attestation: Total time spent providing and/or coordinating discharge services: Discharge coordination time: Greater than 30 minutes Quality: Safe Use of Opioids Does Pt have an Active Cancer Diagnosis on the Problem List?: No Quality: Stroke Does the patient have a stroke diagnosis?: No Physical Exam Vital Signs: Vital Signs: Last Vital Signs Temp 97.8 F 04/10/22 00:00 Pulse 73 04/10/22 12:39 Resp 16 04/10/22 12:39 BP 168/97 H 04/10/22 12:39 Pulse Ox 96 04/10/22 12:39 BMI result Body Mass Index 27.1 Const: Other: General - no acute distress, appears comfortable Cardiovascular - regular rate and rhythm, S1-S2 Lungs - normal respiratory effort, clear to auscultation bilaterally, no wheezing Abdomen - soft, nontender, no rebound or guarding Extremities - no edema bilaterally Neuro - awake and alert, no focal deficits psych - denies SI/HI/AV hallucicnations; appropriate affect DS: Data Data Completed and Pending Completed studies during hospitalization [Text1]: Procedures Other Electroconvulsive Therapy (10/01/21) Labs on day of discharge: Preliminary micro results at discharge 04/07/22 23:09 Blood Culture - Preliminary Blood - Venous No growth after 48 hours. 04/07/22 23:07 Blood Culture - Preliminary Blood - Venous No growth after 48 hours. Discharge Plan Discharge Patient Disposition: Home, Self-Care Discharge Diagnosis: ADORE, hypotension Referrals: Wilmer Enciso MD [Primary Care Provider] - 1 Week Discharge Medications: New amlodipine 2.5 mg Tablet 2.5 mg PO DAILY Qty: 30 0RF Protocol: Hold for SBP< HOLD for SBP < : 90 Continued quetiapine 25 mg tablet 25 mg PO DAILY 0RF gabapentin 400 mg capsule 1 cap PO TID 0RF quetiapine 100 mg tablet 100 mg PO BEDTIME 0RF nortriptyline 25 mg capsule 125 mg PO BEDTIME 0RF lorazepam 0.5 mg tablet 0.5 mg PO Q6H PRN (Reason: Anxiety) 0RF Rx Instructions: DNE 3 DOSES/24 HOURS trazodone 150 mg tablet 1 tab PO BEDTIME 0RF trazodone 150 mg tablet 1 tab PO BEDTIME PRN (Reason: Sleep) 0RF Rx Instructions: USED ONLY IF SCHEDULED DOSE DOSE NOT PRODUCE DESIRED EFFECT AFTER 1 HOUR pramipexole 0.25 mg tablet 0.25 mg PO TID 0RF quetiapine 50 mg tablet 50 mg PO DAILY@1200 0RF multivitamin Tablet 1 tab PO DAILY 0RF latanoprost 0.005 % drops 1 drp ophthalmic (eye) BEDTIME 0RF lamotrigine [Lamictal] 200 mg tablet 1 tab PO BID 0RF polyvinyl alcohol [Artificial Tears (polyvin alc)] 1.4 % Drops 1 drp OPHTHALMIC (EYE) Q1H PRN (Reason: Dry Eyes) 0RF lisinopril 20 mg tablet 1 tab PO DAILY 0RF lidocaine [Lidoderm] 5 % Adhesive Patch,Medicated 1 patch TOPICAL Q12H PRN (Reason: Pain) 0RF Rx Instructions: leave on most painful area for up to 12 hrs omeprazole 20 mg capsule,delayed release(DR/EC) 1 cap PO BID 0RF polyethylene glycol 3350 17 gram/dose powder 17 g PO DAILY 0RF albuterol sulfate 90 mcg/actuation HFA aerosol inhaler 180 mcg inhalation Q6H PRN (Reason: Wheezing) 0RF finasteride 5 mg tablet 1 tab PO DAILY 0RF cholecalciferol (vitamin D3) [Vitamin D3] 10 mcg (400 unit) Capsule 10 mcg PO DAILY 0RF Natural Fiber Laxative (sugar) Powder 3.4 ea PO DAILY 0RF Discontinued amlodipine 5 mg tablet 1 tab PO DAILY 0RF ibuprofen 400 mg Tablet 400 mg PO Q6H PRN (Reason: Pain) 0RF Discharge Orders: Discharge Order (Routine); Ordered 04/10/22 Ordered By: Malcolm Grider Diet: low salt diet Activity on Discharge: As tolerated Stand Alone Forms: Patient Portal Discharge page Care Plan Goals: To stay healthy and out of the hospital. Health Concerns: Low blood pressure, acute kidney injury, confusion Plan of Treatment: Take lisinopril 20mg daily; take norsvasc 2.5mg daily (instead of 5mg daily) stop taking ibuprofen as this can damage your kidneys Assessment: see d/c summary
--- NOTE | 2022-04-10 16:04 | P.EN_ITS ---
Event Note Date of Service: 04/10/22 Event Note: Informed by CM that the [facility] cannot accpet the patient tonight. Will cancel discharge.
--- NOTE | 2022-04-10 16:04 | PM.EVENT ---
Event Note Date of Service: 04/10/22 Event Note: Informed by CM that the alf cannot accpet the patient tonight. Will cancel discharge.
--- NOTE | 2022-04-10 16:06 | PC.NURSE ---
patient refused all meds, dr contreras was notified, also case mgmt stated pt is unable to discharge tonight- dr contreras was notified by this nurse.
--- NOTE | 2022-04-10 16:34 | MHC.CM.PN ---
Addendum entered by Josiane Tovar 04/10/22 22:08: Rosmery from the CARE team called and told CM that Anu Centeno called and spoke with diet supervisor, Sidra ([phone]). Per Rosmery, there does not need to be a meeting tomorrow with , DDS, and [facility] rep. Pt can be d/c home. Please review note. It does say has concerns about medical conditions.??Pt has been cleared by psych. No need in inpatient stay. CM can arrange transport if GH is all set with patient return in the morning. E-mail sent to Vickie Espana. CM will follow for d/c needs. Addendum entered by Josiane Tovar 04/10/22 17:25: Vernon Lucas S coordinator., ([phone]). Update given to Care Team, Rosmery and Anu. Anu will speak with shelter and will speak with patient. At this time, pt is medically cleared/ psych cleared for return to shelter. Per Anu, shelter is concerned about pt medical status, as he was confused and they were concerned about stroke like sx. shelter would like medical update in meeting. This was not mentioned to CM in my conversation with Daniel group home paraprofessional. CM to follow for d/c needs. Original Note: CM received a tiger text from Alisa GARCIA regarding this patient's discharge and needing transportation to return to shelter. This grant writer called Daniel, cancer registry manager ([phone]) to inquire about transportation and any paperwork needed for discharge. Daniel informed this grant writer that patient cannot return to the shelter until a meeting can be arranged between the shelter, DDS, and a hospital advertising representative to discuss the plan moving forward for this patient. Per Daniel and noted in CARE note, patient has been given a 90 day notice that he cannot remain in this current shelter and the S is working to provide alternate housing for this patient. This grant writer Spoke with Vickie Espana regarding above. Vickie requested information on DDS Lamination Builder/contact info. This grant writer called Daniel's diet supervisor, Sidra ([phone]). Sidra identified Vernon Lucas as this patients convolute tube winder. Sidra will call CM back tonight with contact information. Vickie will set up meeting in the morning with shelter & DDS to facilitate patient's discharge hopefully tomorrow. Dr. Grider aware of above via tiger text. Alisa GARCIA aware. CM will follow for d/c needs.
[2022-04-10] MEDS: QUEtiapine Fumarate 50 MG TABLET PO (17:08)
[2022-04-10 17:35] VITALS: BP 202/107; PULSE 84; RESP 16; TEMP 36.5; O2SAT 97
--- NOTE | 2022-04-10 18:12 | PC.NURSE ---
pt continues to refuse med, would only take the seroquel which he requested, dr contreras was notified, pt also refusing tele
--- NOTE | 2022-04-10 18:28 | MHC.CARE ---
CARE Team speaks with Sidra, gravity prospecting supervisor from pt's . She identifies that GH and DDS continue to have concerns about pt returning to the due to outstanding medical questions they have, siting that they have not been provided much info relating to what happened to pt prior to arriving to the ED and what intervention he may continue needing. From the mental health perspective, Sidra reports that they are concerned about the suicidal statements pt has made during his time here. Ingrid also denies that their staff told CARE Team pt could return. CARE customer services coordinator agrees to reassess pt and provide an update to Sidra. CARE Team meets with pt in ED overflow bed 8. He is alert and oriented x4. Affect is flat, and he identifies his mood as depressed. Pt has significant complaints about his usp, reporting that he feels ignored by the staff there. When asked about SI, pt states I would never give them the satisfaction referring to . Pt reports that he continues to struggle with depression and does experience suicidal thinking regularly, but typically does not act on these thoughts. He reports one prior suicide attempt that was unsuccessful. Pt is future oriented with some hope that his new usp will be better. He reports feeling relieved that he has been given a 90 day notice. He repeatedly denies SI/HI during assessment, and does admit making SI statements during his stay in the ED. He denies having intent or plan when making these statements. Pt states confidently that he can keep himself safe at the usp and agrees to return to the ED to be evaluated if his suicidal thoughts are accompanied by plan or intent moving forward. Pt also future oriented surrounding an upcoming appointment with Dr. Haskins, and the prospect of seeing a therapist in his usp (referral completed by [facility] social services coordinator, Alisa Arango). Pt identifies that [facility] has been helpful in the past and agrees to explore admission in the future if needed. He denies feeling that he needs an inpt admission at this time. Pt identifies having short term memory loss, reporting that he hid razors in the backyard but does not remember where they are. Given pt's odd/inconsistent explanation of how he hid them and his mobility limitations, it seems unlikely that his reports are accurate. Pt engages with TW in a mindful and deep breathing exercise to end this intervention. He is concerned about not having shoes to return home in. Given this assessment of risk, and past couple of risk assessments conducted by the CARE Team, pt does not need marta psych admission at this time and is appropriate to return to the community. CM will be coordinating pt's return to .
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
[2022-04-10 21:54] VITALS: BP 158/84; PULSE 70; RESP 18; TEMP 36.4; O2SAT 97
[2022-04-10] MEDS: Latanoprost 0.005 % Ophth Sol 2.5 ML DROPS 1 DROP EYE-BOTH (22:10)
[2022-04-10] MEDS: Nortriptyline HCl 25 MG CAPSULE 125 MG PO (22:12)
[2022-04-10] MEDS: traZODone HCL 50 MG TABLET 150 MG PO (23:34)
--- NOTE | 2022-04-10 23:37 | PC.NURSE ---
Pt medicated per JAN Pt refused 200 mg gabapentine and seroquel. Per pt, took seroquel in the afternoon already Pt tolerated pills with juana charlee Will continue to monitor
[2022-04-11 05:27] VITALS: BP 140/83; PULSE 71; RESP 18; TEMP 36.4; O2SAT 97
[2022-04-11] MEDS: Heparin Sodium,Porcine 5,000 UNIT/ML VIAL 5000 UNIT SUBCUT (07:29)
--- NOTE | 2022-04-11 09:47 | MHC.CM.PN ---
PT WILL BE DISCHARGED HOME TODAY WITH NO SERVICES
[2022-04-11 09:56] VITALS: BP 144/85; PULSE 73; RESP 18; TEMP 36.6; O2SAT 97
--- NOTE | 2022-04-11 10:03 | MHC.CM.PN ---
THIS DIRECTOR OF MANAGED SERVICES SPOKE WITH SHAJI ([phone]) PER CONVERSATION, [place] [facility]'S PLAN IS TO HAVE MEDICATION ORDERS SIGNED SO THAT TRANSPORT CAN THEN BE ARRANGED TWO CONTACT NUMBERS FOR THIS DIRECTOR OF MANAGED SERVICES GIVEN TO SHAJI. AMBULANCE TRANSPORT WILL BE NEEDED FOR PATIENT'S RETURN
[2022-04-11] MEDS: Cholecalciferol (Vitamin D3) 10 MCG TABLET PO (10:07)
[2022-04-11] MEDS: polyethylene glycoL 3350 17 GM POWD.PACK PO (10:07)
[2022-04-11] MEDS: Pramipexole Di-HCL 0.25 MG TABLET PO (10:07)
[2022-04-11] MEDS: Finasteride 5 MG TABLET PO (10:07)
[2022-04-11] MEDS: lamoTRIgine 100 MG TABLET 200 MG PO (10:07)
[2022-04-11] MEDS: QUEtiapine Fumarate 25 MG TABLET PO (10:08)
[2022-04-11] MEDS: lisinopriL 20 MG TABLET PO (10:08)
[2022-04-11] MEDS: Gabapentin 100 MG CAPSULE 200 MG PO (10:08)
[2022-04-11] MEDS: Multivitamin TABLET 1 TAB PO (10:08)
[2022-04-11] MEDS: Gabapentin 400 MG CAPSULE PO (10:08)
[2022-04-11] MEDS: amLODIPine Besylate 2.5 MG TABLET PO (10:08)
[2022-04-11] MEDS: Omeprazole 20 MG CAPSULE.DR PO (10:09)
[2022-04-11] MEDS: QUEtiapine Fumarate 50 MG TABLET PO (13:05)
[2022-04-11] MEDS: LORazepam 0.5 MG TABLET PO (13:10)
== END 2022-04-11 14:19 | disposition home or self-care (01) | DRG 682 ==
LOC: HO.ED 20:01 → HO.EDOVER 23:43
PROVIDERS: Nurse Practitioner Acute Care; Admitting Provider Hospitalist; Emergency Provider Internal Medicine; PCP Internal Medicine; Visit Provider Family Medicine
DX: N17.9 Acute kidney failure, unspecified (principal); G92.8 Other toxic encephalopathy; R45.851 Suicidal ideations; G40.909 Epilepsy, unspecified, not intractable, without status epilepticus; F31.9 Bipolar disorder, unspecified; I95.9 Hypotension, unspecified; Z20.822 Contact with and (suspected) exposure to COVID-19; Z86.73 Personal history of transient ischemic attack (TIA), and cerebral infarction without residual deficits; Z87.820 Personal history of traumatic brain injury; Z88.5 Allergy status to narcotic agent; Z79.899 Other long term (current) drug therapy
CPT/HCPCS: 36415; 70450; 71045; 80048; 80053; 81001; 82607; 82746; 82947; 83605; 83735; 84443; 84484; 85025; 85027; 87040; 87086; 87088; 87186; 87635; 93005; 96360; 99285; J2060

== ENCOUNTER 2022-04-21 12:57 | Emergency (ER) | payer MEDICARE, MEDICAID, SELFPAY ==
[2022-04-21 13:26] VITALS: BP 111/90; BP 112/61; PULSE 68; PULSE 70; RESP 18; TEMP 37; O2SAT 96; BMI 29.9
--- NOTE | 2022-04-21 13:26 | ECG_ITS ---
Test Reason : WEAKNESS Blood Pressure : / mmHG Vent. Rate : 066 BPM Atrial Rate : 066 BPM P-R Int : 212 ms QRS Dur : 116 ms QT Int : 408 ms P-R-T Axes : 053 -20 084 degrees QTc Int : 427 ms Sinus rhythm with 1st degree A-V block Cannot exclude old Inferior infarct (cited on or before 18-JAN-2022) Abnormal ECG When compared with ECG of 18-JAN-2022 18:46, [place] interval has increased Referred By: Janeth Chavez Electronically Signed By:SUSHILA FISHER
[2022-04-21 13:57] VITALS: BP 121/64; PULSE 68
[2022-04-21 13:58] VITALS: BP 115/58; PULSE 70
--- NOTE | 2022-04-21 14:10 | ED_ITS ---
HPI - General Adult General Chief complaint: Weakness Stated complaint: WEAKNESS Time Seen by Provider: 04/21/22 13:26 Source: patient Mode of arrival: EMS History of Present Illness HPI narrative: 66-year-old male brought in by account group supervisor and EMS with a history of 2 brain surgeries that of left him with significant physical limitations her and on approximately 20 medications for various underlying medical conditions such as seizures and was noted to recently be started on Parkinson's medication. The account group supervisor that is with the patient states that they have noticed that he has increased his drinking of alcohol. And they call the ambulance because the patient had difficulty getting on to the mobility device that he is usually able to maneuver without difficulty. Patient states that he feels dehydrated and otherwise denies any new shortness of breath, chest pain/palpitations, abdominal pain, nausea/vomiting. He confirms that in fact he has started drinking but does not drink daily. Related Data Home Medications Medication Instructions Recorded Confirmed albuterol sulfate 90 mcg/actuation 180 mcg INHALATION Q6H PRN 04/07/22 04/07/22 aerosol inhaler cholecalciferol (vitamin D3) 10 10 mcg PO DAILY 04/07/22 04/07/22 mcg (400 unit) capsule (Vitamin D3) finasteride 5 mg tablet 1 tab PO DAILY 04/07/22 04/07/22 gabapentin 400 mg capsule 1 cap PO TID 04/07/22 04/07/22 lamotrigine 200 mg tablet 1 tab PO BID 04/07/22 04/07/22 (Lamictal) latanoprost 0.005 % eye drops 1 drp OPHTHALMIC (EYE) BEDTIME 04/07/22 04/07/22 lidocaine 5 % topical patch 1 patch TOPICAL Q12H PRN 04/07/22 04/07/22 (Lidoderm) lisinopril 20 mg tablet 1 tab PO DAILY 04/07/22 04/07/22 lorazepam 0.5 mg tablet 0.5 mg PO Q6H PRN 04/07/22 04/07/22 multivitamin 1 tab PO DAILY 04/07/22 04/07/22 nortriptyline 25 mg capsule 125 mg PO BEDTIME 04/07/22 04/07/22 omeprazole 20 mg capsule,delayed 1 cap PO BID 04/07/22 04/07/22 release polyethylene glycol 3350 17 17 g PO DAILY 04/07/22 04/07/22 gram/dose oral powder polyvinyl alcohol 1.4 % eye drops 1 drp OPHTHALMIC (EYE) Q1H PRN 04/07/22 04/07/22 (Artificial Tears (polyvinyl alcohol)) pramipexole 0.25 mg tablet 0.25 mg PO TID 04/07/22 04/07/22 psyllium seed (sugar) oral powder 3.4 ea PO DAILY 04/07/22 04/07/22 (Natural Fiber Laxative (sugar)) quetiapine 100 mg tablet 100 mg PO BEDTIME 04/07/22 04/07/22 quetiapine 25 mg tablet 25 mg PO DAILY 04/07/22 04/07/22 quetiapine 50 mg tablet 50 mg PO DAILY@1200 04/07/22 04/07/22 trazodone 150 mg tablet 1 tab PO BEDTIME 04/07/22 04/07/22 trazodone 150 mg tablet 1 tab PO BEDTIME PRN 04/07/22 04/07/22 Previous Rx's Medication Instructions Recorded amlodipine 2.5 mg tablet 2.5 mg PO DAILY #30 tab 04/10/22 Allergies Allergy/AdvReac Type Severity Reaction Status Date / Time fentanyl [FENTANYL] Allergy Intermediate unknown Verified 04/08/22 07:00 Review of Systems Review of Systems: Pertinent positives and negatives as stated in HPI 10 point review of systems is otherwise negative. [facility] Past Medical History Source: nursing notes reviewed Medical History Alcohol abuse Alcohol use disorder, severe, in sustained remission Anxiety Cognitive and neurobehavioral dysfunction following brain injury Depression Depression Hernia HTN (hypertension) Hypertension Major depressive disorder, recurrent Major depressive disorder, recurrent severe without psychotic features Seizure disorder Subdural hematoma Subdural hematoma TBI (traumatic brain injury) TBI (traumatic brain injury) TIA (transient ischemic attack) Surgical History H/O brain surgery H/O craniotomy H/O umbilical hernia repair History of cholecystectomy History of hip replacement S/P cholecystectomy Social History Social History Household Members: Other Household Members Other:: Pt. lives in a fdc. Housing: Other Housing Other:: correction Do you presently have visiting nurse or other home services: Yes Alcohol intake: current Alcohol intake frequency: does not drink Patient Tobacco Use Status: Never used Tobacco e-Cigarette/Vaping Use: Never Used Second Hand Smoke Exposure: No Advance Directives: Yes Advance Directives Information Provided: Yes Advance Directives on File: No Advance Directives Date on File: 05/27/19 service: No Current occupational status: disabled Sexual orientation: Straight/Heterosexual Physical Exam ED Vital Signs: Vital Signs - 24 hr 04/21/22 13:26 04/21/22 13:57 04/21/22 13:58 Temperature 98.6 F Pulse Rate 68 68 70 Respiratory Rate 18 Blood Pressure 112/61 121/64 115/58 L Pulse Oximetry 96 04/21/22 14:49 Temperature Pulse Rate 69 Respiratory Rate 18 Blood Pressure 116/61 Pulse Oximetry 99 BMI result Body Mass Index 29.9 VITAL SIGNS: Reviewed. GENERAL: Well developed, well nourished, in no acute distress. HEAD: Normocephalic/atraumatic, EYES: PERRLA, EOMI EARS: Ext canals without abnormality OROPHARYNX: no oral lesions noted, posterior pharynx clear, dry mucosa LUNGS: Normal breath sounds. No adventitious sounds or accessory muscle use. SpO2<96> CARDIOVASCULAR: Regular rate and rhythm without noted murmurs, no JVD or lower extremity edema. ABDOMEN: Soft, non-tender, non-distended with bowel sounds. MUSCULOSKELETAL: No tenderness, deformities, or effusions noted on gross inspection. EXTREMITIES: No cyanosis, clubbing or edema. SKIN: Inspection of the skin reveals no rashes, ulcerations, jaundice, pallor, or petechiae. NEUROLOGIC: Alert and oriented x 4. Slow speech at baseline with weakened physical extremities at baseline but otherwise strength and sensation to light touch were grossly intact x 4, patient is otherwise nonfocal. Course Course Course Narrative: 66-year-old male with history and clinical presentation most consistent with likely alcohol mixing with underlying medications and possible infection. On review of all investigations there is a small leukocytosis as well as ADORE which would fit with patient's complaints of being dehydrated. Signed out to Dr Rubio: f/u BMP and UA results Medical Decision Making Lab Data Result diagrams: 04/21/22 14:12 04/21/22 14:12 Labs: Lab Results 06/06/22 06/06/22 Range/Units 14:12 14:12 WBC 10.9 H (4.8-10.8) X10*3/uL RBC 4.14 L (4.60-5.80) X10*6/uL Hgb 13.3 L (14.0-18.0) g/dl Hct 40.9 L (42.0-52.0) % MCV 98.8 H (80.0-98.0) fL MCH 32.1 (27.0-33.0) pg MCHC 32.5 (31.0-36.0) g/dl RDW 12.2 (11.0-16.0) % Plt Count 207 (160-400) X10*3/uL MPV 9.3 L (9.4-12.4) fL Immature Gran % (Auto) 1.2 H (0.0-0.4) % Neut % (Auto) 74.5 H (45-73) % Lymph % (Auto) 11.7 L (20-40) % [place] % (Auto) 11.4 H (2-11) % Eos % (Auto) 0.9 (0-4) % Baso % (Auto) 0.3 (0-2) % Lymph # (Auto) 1.3 (1.2-4.9) X10*3/uL [place] # (Auto) 1.2 (0.1-1.2) X10*3/uL Eos # (Auto) 0.1 (0.0-0.4) X10*3/uL Baso # (Auto) 0.0 (0.0-0.2) X10*3/uL Abs Immat Gran (auto) 0.13 H (0.00-0.03) X10*3/uL Absolute Neuts (auto) 8.1 (2.0-8.3) x10*3/uL Absolute Nucleated RBC 0.000 (0.0-0.012) X10*3/uL Nucleated RBC % (auto) 0.0 (0.0-0.2) /100WBC Sodium 140 (135-145) mmol/L Potassium 5.2 H (3.3-5.1) mmol/L Chloride 104 (96-108) mmol/L Carbon Dioxide 26 (22-29) mmol/L Anion Gap 15 (12-20) BUN 17 H (9-16) mg/dL Creatinine 1.63 H (0.5-1.4) mg/dL Estim Creat Clear Calc 58.6 Estimated GFR 42 Random Glucose 90 (60-115) mg/dL Calcium 9.9 (8.4-10.2) mg/dL Total Bilirubin 0.6 (0.0-1.0) mg/dL AST 22 (5-37) U/L ALT 59 H (0-40) U/L Alkaline Phosphatase 98 D (39-117) U/L Total Protein 7.0 (6.5-8.0) g/dL Albumin 4.4 (3.5-5.0) g/dL ECG Data Attestation: I personally reviewed and interpreted this ECG as follows: Prior ECG tracings: available for review Interpretation: Sinus rhythm with first-degree AV block, HR-66, no STEMI, QTC within normal limits. Discharge Plan Discharge Clinical Impression: Weakness, Cognitive and neurobehavioral dysfunction following brain injury Patient Disposition: Still a Patient Prescriptions: No Action quetiapine 25 mg tablet 25 mg PO DAILY 0RF gabapentin 400 mg capsule 1 cap PO TID 0RF quetiapine 100 mg tablet 100 mg PO BEDTIME 0RF nortriptyline 25 mg capsule 125 mg PO BEDTIME 0RF lorazepam 0.5 mg tablet 0.5 mg PO Q6H PRN (Reason: Anxiety) 0RF Rx Instructions: DNE 3 DOSES/24 HOURS trazodone 150 mg tablet 1 tab PO BEDTIME 0RF trazodone 150 mg tablet 1 tab PO BEDTIME PRN (Reason: Sleep) 0RF Rx Instructions: USED ONLY IF SCHEDULED DOSE DOSE NOT PRODUCE DESIRED EFFECT AFTER 1 HOUR pramipexole 0.25 mg tablet 0.25 mg PO TID 0RF quetiapine 50 mg tablet 50 mg PO DAILY@1200 0RF multivitamin Tablet 1 tab PO DAILY 0RF latanoprost 0.005 % drops 1 drp ophthalmic (eye) BEDTIME 0RF lamotrigine [Lamictal] 200 mg tablet 1 tab PO BID 0RF polyvinyl alcohol [Artificial Tears (polyvin alc)] 1.4 % Drops 1 drp OPHTHALMIC (EYE) Q1H PRN (Reason: Dry Eyes) 0RF lisinopril 20 mg tablet 1 tab PO DAILY 0RF lidocaine [Lidoderm] 5 % Adhesive Patch,Medicated 1 patch TOPICAL Q12H PRN (Reason: Pain) 0RF Rx Instructions: leave on most painful area for up to 12 hrs omeprazole 20 mg capsule,delayed release(DR/EC) 1 cap PO BID 0RF polyethylene glycol 3350 17 gram/dose powder 17 g PO DAILY 0RF albuterol sulfate 90 mcg/actuation HFA aerosol inhaler 180 mcg inhalation Q6H PRN (Reason: Wheezing) 0RF finasteride 5 mg tablet 1 tab PO DAILY 0RF cholecalciferol (vitamin D3) [Vitamin D3] 10 mcg (400 unit) Capsule 10 mcg PO DAILY 0RF Natural Fiber Laxative (sugar) Powder 3.4 ea PO DAILY 0RF amlodipine 2.5 mg Tablet 2.5 mg PO DAILY Qty: 30 0RF Protocol: Hold for SBP< HOLD for SBP < : 90
[2022-04-21 14:17] LABS: MANUAL DIFF FLAG NO
[2022-04-21 14:21] LABS: Basophils Percent Auto 0.3 % (0-2); Eosinophils Absolute Auto 0.1 X10*3/uL (0.0-0.4); Eosinophils Percent Auto 0.9 % (0-4); Hematocrit 40.9 % (42.0-52.0); Hemoglobin 13.3 g/dl (14.0-18.0); Imm Gran Abs Auto 0.13 X10*3/uL (0.00-0.03); Imm Gran Pct Auto 1.2 % (0.0-0.4); Lymphocytes Absolute Auto 1.3 X10*3/uL (1.2-4.9); Lymphocytes Percent Auto 11.7 % (20-40); Mean Corpuscular HGB Conc 32.5 g/dl (31.0-36.0); Mean Corpuscular Hemoglobin 32.1 pg (27.0-33.0); Mean Corpuscular Volume 98.8 fL (80.0-98.0); Mean Platelet Volume 9.3 fL (9.4-12.4); Monocytes Absolute Auto 1.2 X10*3/uL (0.1-1.2); Monocytes Percent Auto 11.4 % (2-11); Neutrophils Absolute Auto 8.1 x10*3/uL (2.0-8.3); Neutrophils Percent Auto 74.5 % (45-73); Platelet Count 207 X10*3/uL (160-400); Red Blood Count 4.14 X10*6/uL (4.60-5.80); Red Cell Distribution Width 12.2 % (11.0-16.0); White Blood Count 10.9 X10*3/uL (4.8-10.8)
[2022-04-21 14:37] LABS: Alanine Aminotransferase 59 U/L (0-40); Albumin Level 4.4 g/dL (3.5-5.0); Alkaline Phosphatase 98 U/L (39-117); Anion Gap 15 (12-20); Aspartate Amino Transferase 22 U/L (5-37); Bilirubin Total 0.6 mg/dL (0.0-1.0); Blood Urea Nitrogen 17 mg/dL (9-16); Calcium 9.9 mg/dL (8.4-10.2); Carbon Dioxide 26 mmol/L (22-29); Chloride 104 mmol/L (96-108); Creatinine Clr Calc Pharmacy 58.6; Estimated Glomerular Filt Rate 42; Glucose Random 90 mg/dL (60-115); Potassium 5.2 mmol/L (3.3-5.1); Sodium 140 mmol/L (135-145)
[2022-04-21 14:49] VITALS: BP 116/61; PULSE 69; RESP 18; O2SAT 99
[2022-04-21] MEDS: 0.9 % Sodium Chloride 1,000 ML 999 ML IV (17:04)
[2022-04-21 17:44] LABS: Appearance Urine CLEAR; Color Urine YELLOW; Glucose Urine UA 250 MG/DL (NEG); Leukocyte Esterase Urine TRACE (NEG); Nitrite Urine POS (NEG); UACC Culture Trigger YES; Urine Blood NEG (NEG); Urine Ketones NEG (NEG); Urine Protein TRACE MG/DL (NEG-TRACE)
[2022-04-21 17:54] LABS: Amorphous Sediment Urine 1+ /LPF; Bacteria Urine 3+ /LPF; RBC Urine 0 /HPF (0); Squamous Epithelial Cell Urine 1+ /LPF
[2022-04-21 18:18] LABS: COVID-19 Test Negative (Negative); IDNOW Serial# 16C4AD1C
[2022-04-21 18:19] VITALS: BP 186/99; PULSE 76; RESP 16; TEMP 36.6; O2SAT 99
[2022-04-21 18:20] LABS: Anion Gap 14 (12-20); Blood Urea Nitrogen 19 mg/dL (9-16); Calcium 9.3 mg/dL (8.4-10.2); Carbon Dioxide 24 mmol/L (22-29); Chloride 104 mmol/L (96-108); Creatinine Clr Calc Pharmacy 75.2; Estimated Glomerular Filt Rate 57; Glucose Random 107 mg/dL (60-115); Potassium 5.4 mmol/L (3.3-5.1); Sodium 137 mmol/L (135-145)
[2022-04-21] MEDS: cefTRIAXone sodium 1 GM in 0.9 % Sodium Chloride 50 ML IV (18:52)
[2022-04-21 20:31] VITALS: BP 161/94; PULSE 80; RESP 18; TEMP 36.7; O2SAT 96
== END 2022-04-21 20:33 | disposition home or self-care (01) ==
PROVIDERS: Student in an Organized Health Care Education/Training Program; Emergency Provider Internal Medicine; PCP Internal Medicine
DX: N39.0 Urinary tract infection, site not specified (principal); B95.7 Other staphylococcus as the cause of diseases classified elsewhere; R53.1 Weakness; R41.89 Other symptoms and signs involving cognitive functions and awareness; Z87.820 Personal history of traumatic brain injury; I10 Essential (primary) hypertension; Z20.822 Contact with and (suspected) exposure to COVID-19
CPT/HCPCS: 36415; 80048; 80053; 81001; 85025; 87086; 87088; 87186; 87635; 93005; 96361; 96365; 99284; J0696

== ENCOUNTER 2022-05-08 09:32 | Outpatient (REF) | payer MEDICARE, MEDICAID, SELFPAY ==
--- NOTE | 2022-06-23 15:47 | MHC.AU.MED ---
Medical Clearance for Hearing Instrumentation Date: 06/23/22 Patient Name: Samanta Barros Date of : 1955 Referring Provider: Wilmer Enciso MD We have seen your patient on 05/08/22 and have determined that they are a candidate for amplification (See accompanying report). Specifically, they would benefit from: Hearing aid use in the left ear There is a statute that addresses Medical Evaluation Requirements prior to fitting a patient with a hearing aid. According to [place] statute 265 CMR:6.03(1), (a) General. Except as provided in 265 CMR 6.03(1)(b), a model technician shall not sell a hearing aid unless the prospective user has presented to the model technician a written statement signed by a licensed physician that states that the patient's hearing loss has been medically evaluated and the patient may be considered a candidate for a hearing aid. The medical evaluation must have taken place within the preceding six months. Please note: Due to the [place] Statute referenced above, we cannot accept a signature other than that of a licensed physician. ENGINEERING SCIENTIST and PA signatures cannot be accepted. I am in agreement with the above recommendation. There is no medical contraindication for hearing instrumentation. Physician Signature Date Physician Name (Printed)
--- NOTE | 2022-06-23 15:50 | MHC.AU.HAS ---
Hearing Aid Evaluation Date of Visit: 05/08/22 Historical Information: Description of Hearing: Right: Borderline-normal/mild sensorineural hearing loss, Left: Moderate to severe mixed hearing loss Current personal amplification information, if applicable: A left-sided Phonak Virto V50-13 Summary: Patient was seen for audiological re-evaluation (see separate report for details). Patient is eligible for a new hearing aid for his left ear. His hearing loss in the right ear does not yet warrant a hearing aid. Hearing aid options were discussed. He would like to stay with the ITE style. He is unsure if he wants a rechargeable or disposable battery. He lives in a nursing home setting where his caregivers typically change the battery for him. He would like more time to think about which battery he wants. Patient called back several days later to further discuss- he would like to try rechargeable batteries with Tracey, and if he does not like it will return to disposable batteries with Phonak. Edit: After order was placed, patient called to say he thought about it more and would rather stay with disposable batteries and Phonak. Called Tracey, but the order had already been completed and was en route to our clinic. They have the impression on file, but no longer have the physical impression to send back. Discussed with patient that we cannot order a Phonak Virto at the moment, as we do not have an impression to send them. We will return the rechargeable hearing aid when it arrives and order a Tracey Levon ITE w/size 13 battery. If patient does not like the Tracey hearing aid during his trial period and wants to return to Phonak, we would need have him here in person to take a new impression. Hearing Aid Prescription: Based on the individual?s shared listening needs, communication environments, dexterity, desire for connectivity, and personal preferences, the following prescription for amplification has been made: Left ear: Bsa/Aml Compliance Officer: Tracey Model: Levon ITE Battery Size: 13 Action Taken/Action Needed: Earmold Impressions Taken. Medical Clearance to be requested from PCP/ENT. Hearing Instrument Fitting to be scheduled when materials arrive Primary Diagnosis: H90.A32 Mixed HL, Unilateral, Left Ear, W/Restricted Contralateral Signature: Provider: Cisco Christianson, [facility]
--- NOTE | 2022-06-23 15:51 | MHC.AU.AHA ---
Adult Audiological Evaluation Date of Visit: 05/08/22 Reason for Appointment: Long-standing history of asymmetrical hearing loss (left ear worse). Patient arrives to determine if there has been a change in his hearing. 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 History of Parkinson's Disease. 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 Facilitator: [employer] Model: Fluxomeo V50-13 Serial Number: [id number] Battery Size: 13 Dispensed By: [facility] Date of Fitting: January 2016 Otoscopy: Right Ear: Unremarkable Left Ear: Unremarkable Tympanometry: Tympanometry performed due to: To assess integrity of the middle ear system Right Ear: Hypercompliant Middle Ear System (Type Ad) Left Ear: Normal Middle Ear System (Type A) Hearing Evaluation: Transducer(s) Used: Insert Earphones Method: Conventional Audiometry Stimuli Used: Pure Tones Right Ear: Description of Hearing: Borderline-normal/mild sensorineural hearing loss Left Ear: Description of Hearing: Moderate sloping to severe, rising to mild and sloping to severe mixed hearing loss Speech Recognition Threshold (SRT): Method Used: Recorded Lists Stimuli Used: Spondee Words Right Ear: 25 dBHL Left Ear: 45 dBHL Word Discrimination: Method: Recorded Lists Word Lists Used: W-22 Right Ear: 100% at 60 dBHL Left Ear: 88% at 85 dBHL Comparison: Compared to the most recent evaluation: Hearing is stable. Recommendations: Audiological re-evaluation in one year. Hearing aid maintenance performed today. See Hearing Aid Evaluation report for more information. Diagnosis: Primary Diagnosis: H90.A32 Mixed HL, Unilateral, Left Ear, W/Restricted Contralateral Signature: Provider: Cisco Christianson, [facility]
== END 2022-05-08 09:33 | disposition home or self-care (01) ==
LOC: HO.SH 09:32
PROVIDERS: Visit Provider Internal Medicine
DX: Z01.118 Encounter for examination of ears and hearing with other abnormal findings (principal); Z46.1 Encounter for fitting and adjustment of hearing aid; H90.A32 Mixed conductive and sensorineural hearing loss, unilateral, left ear with restricted hearing on the contralateral side
CPT/HCPCS: 92557; 92567; 92590; V5010; V5275

== ENCOUNTER 2022-05-13 11:55 | Outpatient (REF) | payer MEDICARE, MEDICAID, SELFPAY ==
[2022-05-13 13:36] LABS: Lithium 0.08 mmol/L (0.60-1.20)
[2022-05-17 03:46] LABS: Lamotrigine Lamictal 12.3 mcg/mL (4.0-18.0)
== END 2022-05-13 11:56 | disposition home or self-care (01) ==
LOC: HO.LAB 11:55
PROVIDERS: PCP Internal Medicine; Visit Provider Psychiatry & Neurology Neurology
DX: G25.0 Essential tremor (principal); G25.81 Restless legs syndrome; Z79.899 Other long term (current) drug therapy
CPT/HCPCS: 36415; 80175; 80178

== ENCOUNTER 2022-07-10 10:19 | Outpatient (REF) | payer MEDICARE, MEDICAID, SELFPAY ==
--- NOTE | 2022-07-14 08:45 | MHC.AU.HFU ---
Hearing Instrument Follow-Up- Binaural Date of Visit: 07/10/22 Follow-Up Summary: Patient arrived for hearing aid fitting. Initially, he had wanted to try a rechargeable Tracey hearing aid. After the order had been placed and shipped, he called to say he had changed his mind and would rather stick with a Phonak with the disposable batteries. [facility] had his digital impression on file, but no longer had the physical impression to send back. Discussed that we would try a Tracey Levon first, since a new impression would be needed if we were to try Phonak and it is not easy for the patient to come in. The rechargeable Tracey was sent back and a Tracey Levon i1600 ITC (#[id number]) was ordered. Verifit was performed and levels adjusted to better reach targets. Feedback canceller run. Patient was unsure if he liked the sound of the instrument. He felt the canal length was too long, and was uncomfortable in his ear. He would prefer to return the Tracey Levon and get a Phonak. A new impression was taken of the left ear without incident and sent to [employer] to order a Virto P70 ITE. Asked for 13 battery if possible, but said 312 was okay if they couldn't do a 13. Ordered as non-wireless, as patient has no interest in Bluetooth and would prefer it to be flatter against his ear. At patient request, overall gain was raised 2 steps on his current Phonak Virto V50. Recommendations: Patient will be contacted when the Phonak hearing aid has arrived. Diagnosis Code(s): Primary Diagnosis: H90.A32 Mixed HL, Unilateral, Left Ear, W/Restricted Contralateral Signature: Provider: Cisco Christianson, [facility]
== END 2022-07-10 10:20 | disposition home or self-care (01) ==
LOC: HO.HAP 10:19
PROVIDERS: Visit Provider Internal Medicine
DX: Z46.1 Encounter for fitting and adjustment of hearing aid (principal); H90.A32 Mixed conductive and sensorineural hearing loss, unilateral, left ear with restricted hearing on the contralateral side
CPT/HCPCS: V5275

== ENCOUNTER 2022-08-05 09:55 | Outpatient (REF) | payer MEDICARE, MEDICAID, SELFPAY | END 2022-08-05 09:56 | disposition home or self-care (01) | LOC: HO.HAP 09:55 | PROVIDERS: Visit Provider Internal Medicine | DX: Z46.1 Encounter for fitting and adjustment of hearing aid (principal); H90.A32 Mixed conductive and sensorineural hearing loss, unilateral, left ear with restricted hearing on the contralateral side | CPT/HCPCS: V5011; V5020; V5241; V5256; V5266 ==

== ENCOUNTER 2022-08-12 11:12 | Outpatient (REF) | payer MEDICARE, MEDICAID, SELFPAY ==
--- NOTE | 2022-08-14 11:26 | MHC.AU.FUL ---
Hearing Instrument Follow-Up Date of Visit: 08/12/22 Left Ear: Combine Driver: Phonak Model: Virto P70-312 NW O Serial Number: [id number] Repair Warranty: 10/20/2025 Loss and Damage Warranty: 10/20/2025 Battery Size: 312 Type of Wax Guard: CeruStop Dispensed By: [facility] Date of Fittin08/05/2022 Follow-Up Summary: Samanta reported that his left hearing aid was causing significant discomfort at the entrance to the canal and at the helix. After multiple attempts at buffing with no perceived improvement in discomfort, a new impression was taken, without incident, to have the hearing aid remade. Samanta will use his old hearing aid until the remake has arrived. Recommendations: Patient will be contacted when materials have arrived. Diagnosis Code(s): Primary Diagnosis: H90.3 Bilateral Sensorineural Hearing Loss Secondary Diagnosis: H90.A11 ConductiveHL, Unilateral Right Ear, W/Restricted Contralateral Services Performed: Ear Impression (Quantity): 1, DORAN Non-Quantity Charges: HANC: NonBillable Event Signature: Provider: Lady Singh CCC-A
== END 2022-08-12 11:13 | disposition home or self-care (01) ==
LOC: HO.HAP 11:12
PROVIDERS: Visit Provider Internal Medicine
DX: Z46.1 Encounter for fitting and adjustment of hearing aid (principal); H90.3 Sensorineural hearing loss, bilateral
CPT/HCPCS: V5275

== ENCOUNTER 2022-08-18 09:15 | Outpatient (RCR) | payer MEDICARE, MEDICAID, SELFPAY | END 2022-09-16 08:37 | disposition home or self-care (01) | LOC: HO.WCC 09:15 | PROVIDERS: Visit Provider Physician Assistant | DX: L98.412 Non-pressure chronic ulcer of buttock with fat layer exposed (principal); I10 Essential (primary) hypertension; G62.9 Polyneuropathy, unspecified; Z87.820 Personal history of traumatic brain injury | CPT/HCPCS: 97602; 99212 ==

== ENCOUNTER 2022-09-02 12:38 | Outpatient (REF) | payer MEDICARE, MEDICAID, SELFPAY | END 2022-09-02 12:39 | disposition home or self-care (01) | LOC: HO.HAP 12:38 | PROVIDERS: Visit Provider Internal Medicine | DX: Z13.89 Encounter for screening for other disorder (principal) ==

== ENCOUNTER 2022-09-16 | Outpatient (REF) | payer MEDICARE, MEDICAID, SELFPAY | END 2022-09-16 00:01 | disposition home or self-care (01) | LOC: CF | PROVIDERS: Visit Provider Psychiatry & Neurology Psychiatry | DX: F03.90 Unspecified dementia, unspecified severity, without behavioral disturbance, psychotic disturbance, mood disturbance, and anxiety (principal) | CPT/HCPCS: 90833; 99212 ==

== ENCOUNTER 2022-09-16 14:29 | Outpatient (REF) | payer MEDICARE, MEDICAID, SELFPAY ==
--- NOTE | 2022-09-16 14:51 | MHC.AU.FUL ---
Hearing Instrument Follow-Up Date of Visit: 09/16/22 Left Ear: Rabia Bentley P 70-312 NW O [id number] Color: [place] Repair Warranty: 10/20/2025 Loss and Damage Warranty: 10/20/2025 Battery Size: 312 Type of Wax Guard: CeruStop Dispensed By: [facility] Date of Fittin08/05/2022 Follow-Up Summary: Samanta reported his hearing aid was not working. The Cerustop and vent were plugged with wax. Cleaned the hearing aid including the vent, vacuumed the microphones, and replaced the wax guard. A listening check demonstrated that the hearing aid is in good working order. Samanta noticed an immediate improvement in sound quality in office. Samanta reported that he is unable to change the wax guards himself so replaced the wax guard on his old ITE hearing aid in office as well. Recommended scheduling appointments for hearing aid maintenance every six months so the wax guards can be replaced in office. Recommendations: Hearing instrument maintenance in 6 months, or sooner if needed. Please contact our clinic with any questions or concerns. Diagnosis Code(s): Primary Diagnosis: H90.A32 Mixed HL, Unilateral, Left Ear, W/Restricted Contralateral Secondary Diagnosis: H90.A11 ConductiveHL, Unilateral Right Ear, W/Restricted Contralateral Signature: Provider: Masha Kitchen, [facility]
== END 2022-09-16 14:30 | disposition home or self-care (01) ==
LOC: HO.HAP 14:29
PROVIDERS: Visit Provider Internal Medicine
DX: Z46.1 Encounter for fitting and adjustment of hearing aid (principal); H90.A32 Mixed conductive and sensorineural hearing loss, unilateral, left ear with restricted hearing on the contralateral side; H90.A11 Conductive hearing loss, unilateral, right ear with restricted hearing on the contralateral side; F32.A Depression, unspecified
CPT/HCPCS: 90833; 99212

== ENCOUNTER 2022-09-17 16:16 | Inpatient (IN) | payer MEDICARE, MEDICAID, SELFPAY ==
--- NOTE | ~2022-09-17 | XR_ITS ---
EXAMINATION: XR CHEST CLINICAL INFORMATION: Shortness of breath COMPARISON: Chest x-ray 04/08/2022 TECHNIQUE: Frontal view of the chest was obtained. 5:55 PM FINDINGS: No significant abnormality is noted involving the heart, lungs, mediastinum, bony thorax or soft tissues. XR/XR chest 1V IMPRESSION: Unremarkable examination.
--- NOTE | ~2022-09-17 | CT_ITS ---
EXAMINATION: CT ABDOMEN AND PELVIS WITHOUT CONTRAST CLINICAL INFORMATION: Abdominal pain with rectal bleeding. Question ischemic bowel. COMPARISON: None TECHNIQUE: Multidetector volumetric imaging was performed from the superior aspect of the liver through the pubic symphysis. Sagittal and coronal reformatted images were obtained on the technologist's workstation. This CT examination was performed using dose optimization techniques as appropriate, variously including the following: *Automated exposure control *Adjustment of mA and/or kV according to patient size (this includes techniques or standardized protocols for targeted exams where dose is matched to indication/reason for exam; i.e. extremities or head) *Use of iterative reconstruction technique DLP: 1040 mGy-cm FINDINGS: LUNG BASES: Mild bibasilar subsegmental atelectasis. Mild elevation of the right hemidiaphragm. Coronary artery vascular calcifications are present LIVER, GALLBLADDER, AND BILIARY TREE: Cirrhotic liver morphology with nodular surface contour and slight hypertrophy of the lateral segment left liver lobe. No gross liver lesion. A few small punctate calcifications about the margins of the liver in the perihepatic fat are noted. No biliary ductal dilation. Status post cholecystectomy PANCREAS: Unremarkable. SPLEEN: Normal size. A few small calcified splenic granulomas noted. ADRENAL GLANDS: Unremarkable. KIDNEYS AND URETERS: Couple of small nonobstructing left lower pole renal calculi, largest 2 mm in size. There are a few small low-density benign/simple appearing bilateral renal cysts, largest approximately 2.2 cm in size. No perinephric fluid collection. No hydronephrosis. BLADDER: Unremarkable. GASTROINTESTINAL TRACT: No dilated bowel loops. There is mild thickening of the distal sigmoid colonic wall with mild pericolonic inflammatory fat stranding. No pneumatosis, portal venous gas, or intra-abdominal free air. No additional bowel wall thickening. No dilated bowel loops. Appendix normal. ABDOMINAL WALL: Small fat-containing left inguinal hernia. LYMPH NODES: No lymphadenopathy. VASCULAR: Normal caliber abdominal aorta. Moderate atherosclerotic vascular calcifications. PELVIC VISCERA: Unremarkable. OSSEOUS STRUCTURES: No acute fracture or suspicious osseous lesion. There are chronic appearing compression fractures of T10, T11, T12, L1, and L3. Mild multilevel degenerative disc disease. Status post left hip hemiarthroplasty. Healed right subcapital femoral neck fracture status post removal of percutaneous pins. Chronic left lower rib fracture deformities and left L2 transverse process fracture deformity. CT/CT abdomen pelvis wo IV con IMPRESSION: 1. Findings compatible with colitis involving the distal sigmoid colon. No pneumatosis to suggest specific evidence of ischemic bowel although this possibility cannot be definitively excluded. No evidence of sigmoid diverticulosis to suggest this represents diverticulitis. 2. No additional acute intra-abdominal process. 3. Cirrhotic liver morphology. 4. Multiple chronic appearing lower thoracic and lumbar compression fractures. 5. Additional ancillary findings, as described.
--- NOTE | 2022-09-17 16:47 | ECG_ITS ---
Test Reason : ABD PAIN Blood Pressure : / mmHG Vent. Rate : 082 BPM Atrial Rate : 082 BPM P-R Int : 226 ms QRS Dur : 102 ms QT Int : 386 ms P-R-T Axes : 043 -18 093 degrees QTc Int : 450 ms Sinus rhythm with 1st degree A-V block T wave abnormality, consider lateral ischemia Intra-ventricular conduction delay Low voltage QRS Left axis deviation Abnormal ECG When compared with ECG of 21-APR-2022 13:38, Heart rate has increased Referred By: Janeth Chavez Electronically Signed By:BONNIE NOYOLA MD
[2022-09-17 16:58] VITALS: BP 129/58; BP 84/50; PULSE 80; PULSE 84; RESP 20; TEMP 36.7; O2SAT 97; BMI 30.8
--- NOTE | 2022-09-17 17:11 | ED.GENADULT ---
HPI - General Adult General Chief complaint: Nausea/Vomiting/Diarrhea Stated complaint: WEAKNESS,INCONTINENCE,-STROKE SCALE, LOW BP 76/48 Time Seen by Provider: 09/17/22 16:46 Source: patient Mode of arrival: EMS History of Present Illness HPI narrative: 67-year-old male who is brought in by EMS with complaints of weakness and having been incontinent of stool and urine for proximally 1 and half months. Patient has continued to take take his MiraLax and Metamucil and states he has followed up with his primary care provider who had, as per patient, no further recommendations. EMS noted that his blood pressure was low, patient states that he was dizzy, EMS administered 500 cc of fluid, blood pressure here has been stable and patient does have complaints of shortness of breath but denies any chest pain/palpitations. As per nurse, patient arrived to the emergency room ?covered in feces? and noted that it was mixed with blood. Related Data Home Medications Medication Instructions Recorded Confirmed albuterol sulfate 90 mcg/actuation 180 mcg inhalation Q6H PRN Wheezing 04/07/22 04/07/22 aerosol inhaler cholecalciferol (vitamin D3) 10 10 mcg PO DAILY 04/07/22 04/07/22 mcg (400 unit) capsule (Vitamin D3) finasteride 5 mg tablet 1 tab PO DAILY 04/07/22 04/07/22 gabapentin 400 mg capsule 1 cap PO TID 04/07/22 04/07/22 lamotrigine 200 mg tablet 1 tab PO BID 04/07/22 04/07/22 (Lamictal) latanoprost 0.005 % eye drops 1 drp ophthalmic (eye) BEDTIME 04/07/22 04/07/22 lidocaine 5 % topical patch 1 patch topical Q12H PRN Pain 04/07/22 04/07/22 (Lidoderm) lisinopril 20 mg tablet 1 tab PO DAILY 04/07/22 04/07/22 lorazepam 0.5 mg tablet 0.5 mg PO Q6H PRN Anxiety 04/07/22 04/07/22 multivitamin 1 tab PO DAILY 04/07/22 04/07/22 omeprazole 20 mg capsule,delayed 1 cap PO BID 04/07/22 04/07/22 release polyethylene glycol 3350 17 17 g PO DAILY 04/07/22 04/07/22 gram/dose oral powder polyvinyl alcohol 1.4 % eye drops 1 drp ophthalmic (eye) Q1H PRN Dry 04/07/22 04/07/22 (Artificial Tears (polyvinyl Eyes alcohol)) psyllium seed (sugar) oral powder 3.4 ea PO DAILY 04/07/22 04/07/22 (Natural Fiber Laxative (sugar) oral powder) quetiapine 100 mg tablet 100 mg PO BEDTIME 04/07/22 04/07/22 quetiapine 25 mg tablet 25 mg PO DAILY 04/07/22 04/07/22 quetiapine 50 mg tablet 50 mg PO DAILY@1200 04/07/22 04/07/22 trazodone 150 mg tablet 1 tab PO BEDTIME PRN Sleep 04/07/22 04/07/22 nortriptyline 50 mg capsule 50 mg PO BEDTIME 08/04/22 oxybutynin chloride 10 mg 10 mg PO DAILY 08/04/22 tablet,extended release 24 hr gabapentin 400 mg capsule 1 cap PO TID 09/02/22 09/02/22 Previous Rx's Medication Instructions Recorded amlodipine 2.5 mg tablet 2.5 mg PO DAILY #30 tabs 04/10/22 nitrofurantoin macrocrystal 100 mg 100 mg PO BID 7 days #14 caps 04/25/22 capsule pramipexole 0.25 mg tablet 0.25 mg PO TID #84 tabs 09/02/22 trazodone 150 mg tablet 150 mg PO BEDTIME #30 tabs 09/03/22 Allergies Allergy/AdvReac Type Severity Reaction Status Date / Time fentanyl [FENTANYL] Allergy Intermediate unknown Verified 04/08/22 07:00 Review of Systems Review of Systems: Pertinent positives and negatives as stated in HPI 10 point review of systems is otherwise negative. [facility] Past Medical History Source: nursing notes reviewed Medical History Alcohol abuse Alcohol use disorder, severe, in sustained remission Anxiety Cognitive and neurobehavioral dysfunction following brain injury Depression Depression Hernia HTN (hypertension) Hypertension Major depressive disorder, recurrent Major depressive disorder, recurrent severe without psychotic features Seizure disorder Subdural hematoma Subdural hematoma TBI (traumatic brain injury) TBI (traumatic brain injury) TIA (transient ischemic attack) Surgical History H/O brain surgery H/O craniotomy H/O umbilical hernia repair History of cholecystectomy History of hip replacement S/P cholecystectomy Social History Social History Household Members: Other Household Members Other:: Pt. lives [place] [facility]. Housing: Other Housing Other:: senior care Do you presently have visiting nurse or other home services: Yes Alcohol intake: current Alcohol intake frequency: does not drink Patient Tobacco Use Status: Never used Tobacco Smoked in Last 30 Days: No e-Cigarette/Vaping Use: Never Used Second Hand Smoke Exposure: No Use of substances other than those prescribed or required for medical reasons: No Advance Directives: No Advance Directives Date on File: 05/27/19 service: No Current occupational status: disabled Sexual orientation: Straight/Heterosexual Physical Exam ED Vital Signs: Vital Signs - 24 hr 09/17/22 16:58 09/17/22 18:53 09/17/22 19:36 Temperature 98.1 F 96.6 F L Pulse Rate 84 83 85 Respiratory Rate 20 20 18 Blood Pressure 129/58 L 152/88 H 157/84 H Pulse Oximetry 97 95 97 Oxygen Delivery Method Room Air Room Air Room Air 09/17/22 20:55 Temperature Pulse Rate 90 Respiratory Rate 22 H Blood Pressure 158/78 H Pulse Oximetry 95 Oxygen Delivery Method Room Air BMI result Body Mass Index 30.8 VITAL SIGNS: Reviewed. GENERAL: Well developed, well nourished, in no acute distress. HEAD: Normocephalic/atraumatic EYES: PERRLA, EOMI EARS: Ext canals without abnormality OROPHARYNX: no oral lesions noted, posterior pharynx clear LUNGS: Normal breath sounds. No adventitious sounds or accessory muscle use. SpO2<97> CARDIOVASCULAR: Regular rate and rhythm without noted murmurs, no JVD or lower extremity edema. ABDOMEN: Soft, tenderness across lower abdomen without rebound, non-distended with bowel sounds. TRES: Moderately brown stool mixed with blood, good rectal tone soft stool in rectal vault MUSCULOSKELETAL: No tenderness, deformities, or effusions noted on gross inspection. EXTREMITIES: No cyanosis, clubbing or edema. SKIN: Inspection of the skin reveals no rashes, facial flushing NEUROLOGIC: Alert and oriented x 4. Strength and sensation to light touch were grossly intact x 4. Course Course Course Narrative: 67-year-old male with history and clinical presentation of unclear etiology with 1 and half months of diarrhea yet has continue to use his stool softeners, there is blood visualized mixed with stool, and noted abdominal discomfort. Differential to rule out would be diverticulitis, colitis, GI bleed, ischemic bowel (less likely), C diff. 2119: Review of all investigations demonstrates a leukocytosis, stable/chronic anemia, hyperkalemia with ADORE which precludes the use of any IV contrast in the CT scan of the abdomen and pelvis. Patient will receive antibiotics as well as IV fluids I discussed with the inpatient hospitalist who accepts admission. Medical Decision Making Lab Data Result diagrams: 09/17/22 17:16 09/17/22 17:16 Labs: Lab Results 09/17/22 09/17/22 09/17/22 Range/Units 17:11 17:16 17:16 WBC 13.1 H (4.8-10.8) X10*3/uL RBC 4.12 L (4.60-5.80) X10*6/uL Hgb 13.0 L (14.0-18.0) g/dl Hct 39.9 L (42.0-52.0) % MCV 96.8 (80.0-98.0) fL MCH 31.6 (27.0-33.0) pg MCHC 32.6 (31.0-36.0) g/dl RDW 12.6 (11.0-16.0) % Plt Count 214 (160-400) X10*3/uL MPV 9.4 (9.4-12.4) fL Immature Gran % (Auto) 1.2 H (0.0-0.4) % Neut % (Auto) 79.8 H (45-73) % Lymph % (Auto) 9.8 L (20-40) % [place] % (Auto) 8.7 (2-11) % Eos % (Auto) 0.3 (0-4) % Baso % (Auto) 0.2 (0-2) % Lymph # (Auto) 1.3 (1.2-4.9) X10*3/uL [place] # (Auto) 1.1 (0.1-1.2) X10*3/uL Eos # (Auto) 0.0 (0.0-0.4) X10*3/uL Baso # (Auto) 0.0 (0.0-0.2) X10*3/uL Abs Immat Gran (auto) 0.16 H (0.00-0.03) X10*3/uL Absolute Neuts (auto) 10.4 H (2.0-8.3) x10*3/uL Absolute Nucleated RBC 0.000 (0.0-0.012) X10*3/uL Nucleated RBC % (auto) 0.0 (0.0-0.2) /100WBC PT (10.0-13.1) SEC INR (0.9-1.1) Sodium 139 (135-145) mmol/L Potassium 5.5 H (3.3-5.1) mmol/L Chloride 106 (96-108) mmol/L Carbon Dioxide 19 L (22-29) mmol/L Anion Gap 20 (12-20) BUN 26 H (9-16) mg/dL Creatinine 2.20 H (0.5-1.4) mg/dL Estim Creat Clear Calc 42.2 Estimated GFR 30 Random Glucose 97 (60-115) mg/dL Lactic Acid (0.5-2.0) mmol/L Calcium 9.5 (8.4-10.2) mg/dL Total Bilirubin 0.5 (0.0-1.0) mg/dL AST 28 (5-37) U/L ALT 45 H (0-40) U/L Alkaline Phosphatase 90 (39-117) U/L Troponin I High Sens (<3.5-35.0) ng/L B-Natriuretic Peptide (<100) pg/mL Total Protein 6.9 (6.5-8.0) g/dL Albumin 4.3 (3.5-5.0) g/dL Urine Color Urine Appearance Urine pH (5.0-9.0) Ur Specific [place] (1.005-1.025) Urine Protein (Neg-Trace) mg/dL Urine Glucose (UA) (Negative) mg/dL Urine Ketones (Negative) mg/dL Urine Blood (Negative) Urine Nitrite (Negative) Ur Leukocyte Esterase (Negative) Urine RBC (0-2) /HPF Urine WBC (0-5) /HPF Ur Squamous Epith Cells (0-2) /HPF Urine Bacteria (None Seen) Hyaline Casts (0-2) /LPF Stool Occult Blood (NEGATIVE) C. difficile Tox B Gene (Negative) Influenza Type A (PCR) NEGATIVE (Negative) Influenza Type B (PCR) NEGATIVE (Negative) RSV RNA Qual (PCR) NEGATIVE (Negative) SARS-CoV-2 RNA (RT-PCR) NEGATIVE (Negative) Blood Type Antibody Screen 09/17/22 09/17/22 09/17/22 Range/Units 17:16 17:17 17:17 WBC (4.8-10.8) X10*3/uL RBC (4.60-5.80) X10*6/uL Hgb (14.0-18.0) g/dl Hct (42.0-52.0) % MCV (80.0-98.0) fL MCH (27.0-33.0) pg MCHC (31.0-36.0) g/dl RDW (11.0-16.0) % Plt Count (160-400) X10*3/uL MPV (9.4-12.4) fL Immature Gran % (Auto) (0.0-0.4) % Neut % (Auto) (45-73) % Lymph % (Auto) (20-40) % [place] % (Auto) (2-11) % Eos % (Auto) (0-4) % Baso % (Auto) (0-2) % Lymph # (Auto) (1.2-4.9) X10*3/uL [place] # (Auto) (0.1-1.2) X10*3/uL Eos # (Auto) (0.0-0.4) X10*3/uL Baso # (Auto) (0.0-0.2) X10*3/uL Abs Immat Gran (auto) (0.00-0.03) X10*3/uL Absolute Neuts (auto) (2.0-8.3) x10*3/uL Absolute Nucleated RBC (0.0-0.012) X10*3/uL Nucleated RBC % (auto) (0.0-0.2) /100WBC PT 11.6 (10.0-13.1) SEC INR 1.0 (0.9-1.1) Sodium (135-145) mmol/L Potassium (3.3-5.1) mmol/L Chloride (96-108) mmol/L Carbon Dioxide (22-29) mmol/L Anion Gap (12-20) BUN (9-16) mg/dL Creatinine (0.5-1.4) mg/dL Estim Creat Clear Calc Estimated GFR Random Glucose (60-115) mg/dL Lactic Acid 1.8 (0.5-2.0) mmol/L Calcium (8.4-10.2) mg/dL Total Bilirubin (0.0-1.0) mg/dL AST (5-37) U/L ALT (0-40) U/L Alkaline Phosphatase (39-117) U/L Troponin I High Sens 4.0 (<3.5-35.0) ng/L B-Natriuretic Peptide < 10 (<100) pg/mL Total Protein (6.5-8.0) g/dL Albumin (3.5-5.0) g/dL Urine Color Urine Appearance Urine pH (5.0-9.0) Ur Specific [place] (1.005-1.025) Urine Protein (Neg-Trace) mg/dL Urine Glucose (UA) (Negative) mg/dL Urine Ketones (Negative) mg/dL Urine Blood (Negative) Urine Nitrite (Negative) Ur Leukocyte Esterase (Negative) Urine RBC (0-2) /HPF Urine WBC (0-5) /HPF Ur Squamous Epith Cells (0-2) /HPF Urine Bacteria (None Seen) Hyaline Casts (0-2) /LPF Stool Occult Blood (NEGATIVE) C. difficile Tox B Gene (Negative) Influenza Type A (PCR) (Negative) Influenza Type B (PCR) (Negative) RSV RNA Qual (PCR) (Negative) SARS-CoV-2 RNA (RT-PCR) (Negative) Blood Type Antibody Screen 09/17/22 09/17/22 09/17/22 Range/Units 17:21 17:30 18:15 WBC (4.8-10.8) X10*3/uL RBC (4.60-5.80) X10*6/uL Hgb (14.0-18.0) g/dl Hct (42.0-52.0) % MCV (80.0-98.0) fL MCH (27.0-33.0) pg MCHC (31.0-36.0) g/dl RDW (11.0-16.0) % Plt Count (160-400) X10*3/uL MPV (9.4-12.4) fL Immature Gran % (Auto) (0.0-0.4) % Neut % (Auto) (45-73) % Lymph % (Auto) (20-40) % [place] % (Auto) (2-11) % Eos % (Auto) (0-4) % Baso % (Auto) (0-2) % Lymph # (Auto) (1.2-4.9) X10*3/uL [place] # (Auto) (0.1-1.2) X10*3/uL Eos # (Auto) (0.0-0.4) X10*3/uL Baso # (Auto) (0.0-0.2) X10*3/uL Abs Immat Gran (auto) (0.00-0.03) X10*3/uL Absolute Neuts (auto) (2.0-8.3) x10*3/uL Absolute Nucleated RBC (0.0-0.012) X10*3/uL Nucleated RBC % (auto) (0.0-0.2) /100WBC PT (10.0-13.1) SEC INR (0.9-1.1) Sodium (135-145) mmol/L Potassium (3.3-5.1) mmol/L Chloride (96-108) mmol/L Carbon Dioxide (22-29) mmol/L Anion Gap (12-20) BUN (9-16) mg/dL Creatinine (0.5-1.4) mg/dL Estim Creat Clear Calc Estimated GFR Random Glucose (60-115) mg/dL Lactic Acid (0.5-2.0) mmol/L Calcium (8.4-10.2) mg/dL Total Bilirubin (0.0-1.0) mg/dL AST (5-37) U/L ALT (0-40) U/L Alkaline Phosphatase (39-117) U/L Troponin I High Sens (<3.5-35.0) ng/L B-Natriuretic Peptide (<100) pg/mL Total Protein (6.5-8.0) g/dL Albumin (3.5-5.0) g/dL Urine Color Urine Appearance Urine pH (5.0-9.0) Ur Specific [place] (1.005-1.025) Urine Protein (Neg-Trace) mg/dL Urine Glucose (UA) (Negative) mg/dL Urine Ketones (Negative) mg/dL Urine Blood (Negative) Urine Nitrite (Negative) Ur Leukocyte Esterase (Negative) Urine RBC (0-2) /HPF Urine WBC (0-5) /HPF Ur Squamous Epith Cells (0-2) /HPF Urine Bacteria (None Seen) Hyaline Casts (0-2) /LPF Stool Occult Blood POSITIVE (NEGATIVE) C. difficile Tox B Gene NEGATIVE (Negative) Influenza Type A (PCR) (Negative) Influenza Type B (PCR) (Negative) RSV RNA Qual (PCR) (Negative) SARS-CoV-2 RNA (RT-PCR) (Negative) Blood Type O Positive Antibody Screen POSITIVE 09/17/22 Range/Units 18:56 WBC (4.8-10.8) X10*3/uL RBC (4.60-5.80) X10*6/uL Hgb (14.0-18.0) g/dl Hct (42.0-52.0) % MCV (80.0-98.0) fL MCH (27.0-33.0) pg MCHC (31.0-36.0) g/dl RDW (11.0-16.0) % Plt Count (160-400) X10*3/uL MPV (9.4-12.4) fL Immature Gran % (Auto) (0.0-0.4) % Neut % (Auto) (45-73) % Lymph % (Auto) (20-40) % [place] % (Auto) (2-11) % Eos % (Auto) (0-4) % Baso % (Auto) (0-2) % Lymph # (Auto) (1.2-4.9) X10*3/uL [place] # (Auto) (0.1-1.2) X10*3/uL Eos # (Auto) (0.0-0.4) X10*3/uL Baso # (Auto) (0.0-0.2) X10*3/uL Abs Immat Gran (auto) (0.00-0.03) X10*3/uL Absolute Neuts (auto) (2.0-8.3) x10*3/uL Absolute Nucleated RBC (0.0-0.012) X10*3/uL Nucleated RBC % (auto) (0.0-0.2) /100WBC PT (10.0-13.1) SEC INR (0.9-1.1) Sodium (135-145) mmol/L Potassium (3.3-5.1) mmol/L Chloride (96-108) mmol/L Carbon Dioxide (22-29) mmol/L Anion Gap (12-20) BUN (9-16) mg/dL Creatinine (0.5-1.4) mg/dL Estim Creat Clear Calc Estimated GFR Random Glucose (60-115) mg/dL Lactic Acid (0.5-2.0) mmol/L Calcium (8.4-10.2) mg/dL Total Bilirubin (0.0-1.0) mg/dL AST (5-37) U/L ALT (0-40) U/L Alkaline Phosphatase (39-117) U/L Troponin I High Sens (<3.5-35.0) ng/L B-Natriuretic Peptide (<100) pg/mL Total Protein (6.5-8.0) g/dL Albumin (3.5-5.0) g/dL Urine Color Yellow Urine Appearance Clear Urine pH 5.5 (5.0-9.0) Ur Specific [place] 1.020 (1.005-1.025) Urine Protein Trace (Neg-Trace) mg/dL Urine Glucose (UA) Negative (Negative) mg/dL Urine Ketones Negative (Negative) mg/dL Urine Blood Negative (Negative) Urine Nitrite Negative (Negative) Ur Leukocyte Esterase Small (1+) H (Negative) Urine RBC 0-2 (0-2) /HPF Urine WBC 11-20 H (0-5) /HPF Ur Squamous Epith Cells 3-5 (0-2) /HPF Urine Bacteria None Seen (None Seen) Hyaline Casts 3-5 (0-2) /LPF Stool Occult Blood (NEGATIVE) C. difficile Tox B Gene (Negative) Influenza Type A (PCR) (Negative) Influenza Type B (PCR) (Negative) RSV RNA Qual (PCR) (Negative) SARS-CoV-2 RNA (RT-PCR) (Negative) Blood Type Antibody Screen Critical Care Time Critical Care Time Critical Care Time: Yes Total Critical Care Time: 30 Attestation: I personally attest to this time spent taking care of the patient. Discharge Plan Discharge Clinical Impression: Colitis, Dehydration, ADORE (acute kidney injury) Patient Disposition: Admitted As Inpatient Prescriptions: No Action oxybutynin chloride 10 mg tablet extended release 24hr 10 mg PO DAILY nortriptyline 50 mg capsule 50 mg PO BEDTIME pramipexole 0.25 mg tablet 0.25 mg PO TID Qty: 84 0RF trazodone 150 mg tablet 150 mg PO BEDTIME Qty: 30 5RF Rx Instructions: 1 bedtime may repeat x 1 for insomnia quetiapine 25 mg tablet 25 mg PO DAILY gabapentin 400 mg capsule 1 cap PO TID quetiapine 100 mg tablet 100 mg PO BEDTIME lorazepam 0.5 mg tablet 0.5 mg PO Q6H PRN (Reason: Anxiety) Rx Instructions: DNE 3 DOSES/24 HOURS trazodone 150 mg tablet 1 tab PO BEDTIME PRN (Reason: Sleep) Rx Instructions: USED ONLY IF SCHEDULED DOSE DOSE NOT PRODUCE DESIRED EFFECT AFTER 1 HOUR quetiapine 50 mg tablet 50 mg PO DAILY@1200 multivitamin Tablet 1 tab PO DAILY latanoprost 0.005 % drops 1 drp ophthalmic (eye) BEDTIME lamotrigine [Lamictal] 200 mg tablet 1 tab PO BID polyvinyl alcohol [Artificial Tears (polyvin alc)] 1.4 % Drops 1 drp OPHTHALMIC (EYE) Q1H PRN (Reason: Dry Eyes) lisinopril 20 mg tablet 1 tab PO DAILY lidocaine [Lidoderm] 5 % Adhesive Patch,Medicated 1 patch TOPICAL Q12H PRN (Reason: Pain) Rx Instructions: leave on most painful area for up to 12 hrs omeprazole 20 mg capsule,delayed release(DR/EC) 1 cap PO BID polyethylene glycol 3350 17 gram/dose powder 17 g PO DAILY albuterol sulfate 90 mcg/actuation HFA aerosol inhaler 180 mcg inhalation Q6H PRN (Reason: Wheezing) finasteride 5 mg tablet 1 tab PO DAILY cholecalciferol (vitamin D3) [Vitamin D3] 10 mcg (400 unit) Capsule 10 mcg PO DAILY Natural Fiber Laxative (sugar) Powder 3.4 ea PO DAILY amlodipine 2.5 mg Tablet 2.5 mg PO DAILY Qty: 30 0RF Protocol: Hold for SBP< HOLD for SBP < : 90 nitrofurantoin macrocrystal 100 mg capsule 100 mg PO BID 7 Days Qty: 14 0RF Rx Instructions: must administer with a meal/food gabapentin 400 mg capsule 1 cap PO TID
[2022-09-17 17:23] LABS: MANUAL DIFF FLAG NO
[2022-09-17 17:24] LABS: Basophils Percent Auto 0.2 % (0-2); Eosinophils Percent Auto 0.3 % (0-4); Hematocrit 39.9 % (42.0-52.0); Imm Gran Abs Auto 0.16 X10*3/uL (0.00-0.03); Imm Gran Pct Auto 1.2 % (0.0-0.4); Lymphocytes Absolute Auto 1.3 X10*3/uL (1.2-4.9); Lymphocytes Percent Auto 9.8 % (20-40); Mean Corpuscular HGB Conc 32.6 g/dl (31.0-36.0); Mean Corpuscular Hemoglobin 31.6 pg (27.0-33.0); Mean Corpuscular Volume 96.8 fL (80.0-98.0); Mean Platelet Volume 9.4 fL (9.4-12.4); Monocytes Absolute Auto 1.1 X10*3/uL (0.1-1.2); Monocytes Percent Auto 8.7 % (2-11); Neutrophils Absolute Auto 10.4 x10*3/uL (2.0-8.3); Neutrophils Percent Auto 79.8 % (45-73); Platelet Count 214 X10*3/uL (160-400); Red Blood Count 4.12 X10*6/uL (4.60-5.80); Red Cell Distribution Width 12.6 % (11.0-16.0); White Blood Count 13.1 X10*3/uL (4.8-10.8)
[2022-09-17 17:30] LABS: OBS Int Ctl Valid YES; OBS1 POSITIVE (NEGATIVE)
[2022-09-17 17:43] LABS: Prothrombin Time 11.6 SEC (10.0-13.1)
[2022-09-17 18:09] LABS: Influenza A PCR NEGATIVE (Negative); Influenza B PCR NEGATIVE (Negative); Resp Syncy Virus RNA Qual PCR NEGATIVE (Negative); SARS COV2 PCR INHOUSE NEGATIVE (Negative)
[2022-09-17 18:53] VITALS: BP 152/88; PULSE 83; RESP 20; O2SAT 95
[2022-09-17 19:03] LABS: CDiff Gene PCR NEGATIVE (Negative)
--- OUTSIDE RECORDS SUMMARY | 2022-09-17 19:31 | XMS_ITS ---
:1955 Author Organization [facility] Address [address] [place] [address] Care Team Providers Name Role Phone Corbin Wu Unavailable Unavailable PROBLEMS Type Condition ICD9-CM [id number] Onset Condition SNOMED Cod e Code Code Dates Status Problem Encounter for Z12.11 Active 664045 [id number] screening for malignant neoplasm of colon Problem Constipation, K59.00 Active 848640 08 unspecified constipation type Problem History of Z86.010 Active [id number] adenomatous polyp of colon Problem Gastroesophageal K21.9 Active 266 058756 reflux disease without esophagitis Problem Alcoholic cirrhosis K70.30 Active [id number] of liver without ascites Problem Alcoholic liver K70.9 Active 4130 9000 disease ALLERGIES Substance Reaction Event Type Date Status Fentanyl Unknown Drug Allergy Feb, Active ENCOUNTERS Encounter Location Date Diagnosis [place] [address] Aug[facility] [address] [place] [address] [facility] [address] Jul, [facility] [address] [place] [address] [facility] [address] Jun, [facility] [address] [place] [address] [facility] [address] Jun, [facility] [address] [place] [address] [facility] [address] Jun, [facility] [address] [place] [address] [facility] [address] May, [facility] [address] [place] [address] [facility] [address] March, [facility] [address] [place] [address] [facility] [address] Feb, [facility] [address] [place] [address] [facility] [address] Feb, Alcoholi c cirrhosis of liver [facility] [address] [place] without as cites K70.30 ; [address] Alcoholic liver disease K70.9 ; Constipa tion, unspecified cons tipation type K59.00 and History of adenomatous poly p of colon Z86.010 [facility] [address] Sep, [facility] [address] [place] [address] [facility] [address] Jun, [facility] [address] [place] [address] [facility] [address] March, [facility] [address] [place] [address] [facility] [address] Oct, [facility] [address] [place] [address] [facility] [address] Sep, Alcoholi c cirrhosis of liver [facility] [address] [place] without as cites K70.30 ; [address] Alcoholic liver disease K70.9 ; Constipa tion, unspecified cons tipation type K59.00 and History of adenomatous poly p of colon Z86.010 [facility] [address] Aug, [facility] [address] [place] [address] [facility] [address] Dec, [facility] [address] [place] [address] [facility] [address] Dec, [facility] [address] [place] [address] [facility] [address] Dec, [facility] [address] [place] [address] [facility] [address] Oct, [facility] [address] [place] [address] [facility] [address] Sep, [facility] [address] [place] [address] [facility] [address] Sep, [facility] [address] [place] [address] [facility] [address] Sep, [facility] [address] [place] [address] [facility] [address] Sep, Alcoholi c cirrhosis of liver [facility] [address] [place] without as cites K70.30 ; [address] Alcoholic liver disease K70.9 ; Gastroes ophageal reflux disease w ithout esophagitis K21. 9 ; History of adenomatous p olyp of colon Z86.010 ; Constipation, un specified constipation typ e K59.00 and Encounter for sc reening for malignant neopla sm of colon Z12.11 [facility] [address] Dec, [facility] [address] [place] [address] [facility] [address] Nov, [facility] [address] [place] [address] [facility] [address] Nov, [facility] [address] [place] [address] [facility] [address] Nov, [facility] [address] [place] [address] [facility] [address] May, [facility] [address] [place] [address] [facility] [address] May, [facility] [address] [place] [address] [facility] [address] May, [facility] [address] [place] [address] [facility] [address] May, [facility] [address] [place] [address] [facility] [address] May, Alcoholi c cirrhosis of liver [facility] [address] [place] without as cites K70.30 ; [address] Alcoholic liver disease K70.9 ; Gastroes ophageal reflux disease w ithout esophagitis K21. 9 and History of adeno matous polyp of colon Z86.010 [facility] [address] March, [facility] [address] [place] [address] [facility] [address] Jan, [facility] [address] [place] [address] [facility] [address] [facility] Nov, [place] [id number] [facility] [address] [facility] Apr, [place] [id number] IMMUNIZATIONS Vaccine Route Administration Date Status Influenza Unknown Sep 03, 2021 Administered Influenza Unknown Sep 11, 2020 Administered Influenza Unknown Aug 16, 2019 Administered SOCIAL HISTORY Qualifiers Date Never Smoker REASON FOR REFERRAL FUNCTIONAL STATUS PLAN OF CARE Activity Details Follow Up 1 Year Reason: Future Appointment Provider Name:Corbin Wu , 2022-10-14 03:20:00 PM, [address], [address], [place], [address], Pending Test US abdomen complete Pending Test PROTHROMBIN TIME (PT, INR) Pending Test ALPHA-FETOPROTEIN,TUMOR RANJAN ER Pending Test US ABD Pending Test LIVER PROFILE Pending Test CBC w DIFF Pending Test PROTHROMBIN TIME (PT, INR) Pending Test ALPHA-FETOPROTEIN,TUMOR RANJAN ER Pending Test US ABD Pending Test LIVER PROFILE Pending Test AMMONIA Pending Test CBC w DIFF Pending Test PROTHROMBIN TIME (PT, INR) Pending Test ALPHA-FETOPROTEIN,TUMOR RANJAN ER VITAL SIGNS Weight 230 lbs 2022-02-25 Weight 230 lbs 2020-10-04 Weight 225 lbs 2019-10-04 Weight 225 lbs 2018-05-18 Height 74 in 2022-02-25 Height 74 in 2020-10-04 Height 74 in 2019-10-04 Height 74 in 2018-05-18 BMI 29.53 kg/m2 2022-02-25 BMI 29.53 kg/m2 2020-10-04 BMI 28.89 kg/m2 2019-10-04 BMI 28.89 kg/m2 2018-05-18 Heart Rate 76 /min 2018-05-18 Temperature 97.5 degrees Fahrenheit 2022-02-25 Temperature 97.5 degrees Fahrenheit 2020-10-04 Blood pressure systolic 000 mm Hg 2022-02-25 Blood pressure diastolic 00 mm Hg 2022-02-25 MEDICATIONS Medication Instructions Dosage Frequency Start End Duration Statu s Date Date Latanoprost 0.005 25 Active % Proscar 5 MG Orally Once a 1 tablet 24h Acti day Ativan 0.5 MG Orally twice a 1 tablet as 12h Active day needed MiraLax - Orally Q PM PRN 17 Grams Dec, days Activ e constipation 2019 amLODIPine Orally Once a 5 ml 24h 30 day(s) Activ e Benzoate 1 MG/ML day Colace 100 MG Orally Every 1 Jul, day(s) Act sade evening at 2021 bedtime Nortriptyline HCl 30 Active 25 MG Finasteride 5 MG 30 Active MiraLax - Orally Once a 1 packet 24h Active day mixed with 8 ounces of fluid Ventolin HFA 108 Inhalation 2 puffs as 6h A ctive (90 Base) MCG/ACT every 6 hrs needed Sinemet 25-100 MG Orally Three 1 tablet 8h Active times a day Omeprazole 20 MG 28 Active Gabapentin 400 MG 30 Active Trintellix 10 MG 28 Active Metamucil 48.57 % Orally Once or 1 Tablespoon Aug, days Active Twice a day for in at least 2021 constipation 8 ounces of fluids MiraLax 17 Orally daily at 1 scoop with March, days Active GM/SCOOP 4PM on a daily 17 GM 2021 and regular basis, and then also QAM as needed for constipation in addition to the 4PM dose if needed LaMICtal 150 MG Orally Twice a 1 tablet 12h Active day Lisinopril Active Centrum Silver - Orally once a one tablet 24h Active day Artificial Tears Ophthalmic 24 1 drop into Active 1-0.3 % time(s) a day affected eye as needed Vitamin D3 10 MCG 15 Active (400 UNIT) Colace 100 MG Orally Once a 1 capsule as 24h Active day needed Metamucil 48.57 % Orally once or 1 Tablespoon May, days Active twice a day 2021 mixed in 8 ounces of water or OJ for constipation Lidocaine 5 % Externally prn 1 patch to Active 12H skin remove after 12 hours traZODone HCl 150 Orally hs 1 tablet at Active MG bedtime GNP Natural Fiber 28 Active 0.52 GM Famotidine 20 MG 28 Active lamoTRIgine 200 MG 30 Activ e QUEtiapine Orally twice a 1 tablet 12h Activ e Fumarate 75 mg day LORazepam 0.5 MG 8 Active Melatonin 5 MG 30 Active MiraLax - Orally QAM 17 Grams Dec, days Active 2019 Tylenol 8 Hour 650 Orally every 8 1 tablet as 8h Active MG hrs needed Pramipexole 30 Active Dihydrochloride 0.125 MG Xalatan 0.005 % Ophthalmic Once 1 drop into 24h Active a day affected eye in the evening PROCEDURES Procedure Date Ordered Result Body Site DOC MEDS VERIFIED W/PT OR RE February 25, 2022 BP SCR PRFRM RCMDD DEFIND SCR INTVL May 18, 2018 DOC MEDS VERIFIED W/PT OR RE Oct 04, 2019 DOC MEDS VERIFIED W/PT OR RE Oct 04, 2020 TOBACCO NON-USER May 18, 2018 COLORECTAL CA SCREEN DOC REV February 25, 2022 BP SCR PRFRM RCMDD DEFIND SCR INTVL Oct 04, 2019 FLU IMMUNIZE ORDER/ADMIN May 18, 2018 COLORECTAL CA SCREEN DOC REV Oct 04, 2020 TOBACCO NON-USER Oct 04, 2020 COLORECTAL CA SCREEN DOC REV Oct 04, 2019 TOBACCO NON-USER Oct 04, 2019 BMI >=30 CALCUATE W/FOLLOWUP May 18, 2018 COLORECTAL CA SCREEN DOC REV May 18, 2018 DOC MEDS VERIFIED W/PT OR RE May 18, 2018 BP SCR NOT PRFRM REC REASON NOS February 25, 2022 BP SCR PRFRM RCMDD DEFIND SCR INTVL Oct 04, 2020 TOBACCO NON-USER February 25, 2022 RESULTS Name Result Date Reference Range Prothrombin Time INR 2022-03-07 Prothrombin Time 11.1 9.9-13.0 INTERNATIONAL NORM RATIO 1.0 0.9-1.1 Alpha Fetoprotein 2022-03-07 Alpha Fetoprotein 2.7 <6.1 ALPHA-FETOPROTEIN,TUMOR MARKER 2019-10-04 ALPHA-FETOPROTEIN,TUMOR MARKER 1.4 < 6.1 LIVER PROFILE 2018-06-07 PROTEIN, TOTAL 6.7 6.5-8.0 ALBUMIN 4.5 3.5-5.0 BILIRUBIN, TOTAL 0.5 0.0-1.0 BILIRUBIN, DIRECT 0.2 0.0-0.5 ALK. PHOS. 56 39-117 GOT 20 5-37 GPT 7 0-40 AMMONIA 2018-06-07 AMMONIA 31 13-55 CBC w DIFF 2018-06-07 WBC 5.4 4.8-10.8 ABSOLUTE NEUTROPHIL COUNT 3.1 2.2-7. 9 RBC 4.22 4.60-5.80 HEMOGLOBIN 14.5 14.0-18.0 HEMATOCRIT 41.6 42-52 MCV 98.5 80-98 MCH 34.4 27.0-33.0 MCHC 34.9 31.0-36.0 PLATELET COUNT 153 160-400 RDW 11.7 11.0-16.0 NEUTROPHILS 57.3 45-73 LYMPHOCYTES 30.3 20-40 MONOCYTES 7.7 2-11 EOSINOPHILS 3.8 0-4 BASOPHILS 0.9 0-2 PROTHROMBIN TIME (PT, INR) 2018-06-07 INTERNATIONAL NORM. RATIO 1.0 SEE NO TE PROTHROMBIN TIME 12.1 10.2-12.9 ALPHA-FETOPROTEIN,TUMOR MARKER 2018-06-07 ALPHA-FETOPROTEIN,TUMOR MARKER 2.0 < 6.1 US ABD 2018-06-07 REASON FOR VISIT Patient presents today for dysphagia of solids, powder of metamucil , refill of metamucil powder , miralax Rx, needs script for metamucil /miralax , script , ov recall, Patient presents today for cirrhosis, Patient presents today for alcoholic liver disease, patient is in[facility] at [facility] [place], colace d/c ----WU PATIENT , r/f request , fax labs to dr/mail u/s results, alcohol-related cirrhosis and constipation, patient presents today for alcohol-related cirrhosis and constipation, will forward a copy of liver u/s to you, refill request, void error, U/S, NEED ORDER NEEDS TO BE SIGNED IN TYPED FORMAT, form for your review , recall colonoscopy, PATIENT PRESENTS TODAY FOR Yearly follow up, yearly f/u, wanted Miralax in the afternoon, physician order, constipation, RE: Change in Miralax and colace, requesting US results, Has a question, Put on one year OV follow up, Patient presents today for constipation,cirrhosis, ? U/S needed per pt, Moving back from [place]/pt picking up medical release form Insurance Providers [facility] Member Patient Patient Patient Patient Patient Subscriber Subscriber Subscriber Group Insurance Plan Plan Plan Plan ID Relationship Address Phone Name Date of ID Name Date of No Type Insurance Insurance Insurance Coverage to Subscriber Address Phone Name Dates MEDICAID [address] MEDICAID self [place] [id number] OF [facility] [id number] [facility] [address] [facility] [address] MEDICARE [id number] MEDICARE self [place] [id number] [place] [address] [place] [facility] [facility] [address]
[2022-09-17 19:34] LABS: Lactic Acid 1.8 mmol/L (0.5-2.0)
[2022-09-17 19:36] VITALS: BP 157/84; PULSE 85; RESP 18; TEMP 35.9; O2SAT 97
[2022-09-17 19:38] LABS: Alanine Aminotransferase 45 U/L (0-40); Albumin Level 4.3 g/dL (3.5-5.0); Alkaline Phosphatase 90 U/L (39-117); Anion Gap 20 (12-20); Aspartate Amino Transferase 28 U/L (5-37); Bilirubin Total 0.5 mg/dL (0.0-1.0); Blood Urea Nitrogen 26 mg/dL (9-16); Calcium 9.5 mg/dL (8.4-10.2); Carbon Dioxide 19 mmol/L (22-29); Chloride 106 mmol/L (96-108); Creatinine Clr Calc Pharmacy 42.2; Estimated Glomerular Filt Rate 30; Glucose Random 97 mg/dL (60-115); Potassium 5.5 mmol/L (3.3-5.1); Sodium 139 mmol/L (135-145); Total Protein 6.9 g/dL (6.5-8.0)
[2022-09-17 20:01] LABS: B Type Natriuretic Peptide < 10 pg/mL (<100)
[2022-09-17] MEDS: Calcium Gluconate/NaCl,Iso-Osm 2 GM/100 ML PLAST..BAG IV (20:26)
[2022-09-17] MEDS: 0.9 % Sodium Chloride 2,000 ML 999 ML IV (20:29)
[2022-09-17 20:31] LABS: Appearance Urine Clear; Color Urine Yellow; Glucose Urine UA Negative (Negative); Leukocyte Esterase Urine Small (1+) (Negative); Nitrite Urine Negative (Negative); PH 5.5 (5.0-9.0); UMIC TRIGGER UACC YES; Urine Blood Negative (Negative); Urine Ketones Negative (Negative); Urine Protein Trace mg/dL (Neg-Trace)
[2022-09-17 20:33] LABS: Bacteria Urine None Seen (None Seen); RBC Urine 0-2 /HPF (0-2); UACC Culture Trigger YES
[2022-09-17] MEDS: Insulin Regular, Human 100 UNIT/ML 3 ML VIAL IVPUSH (20:33)
[2022-09-17 20:55] VITALS: BP 158/78; PULSE 90; RESP 22; O2SAT 95
[2022-09-17] MEDS: Dextrose 50 % 25 GM/50 ML SYRINGE IVPUSH (20:55)
[2022-09-17] MEDS: Piperacillin Sodium/Tazobactam 3.375 GM in 0.9 % Sodium Chloride 50 ML IV (22:55)
--- NOTE | 2022-09-17 23:53 | PM.IMHP ---
History of Present Illness Date of Service: 09/17/22 Chief Complaint: bowel and bladder incontinence 67-year-old male past medical history of alcohol abuse, anxiety, cognitive and neurobehavioral dysfunction following brain injury, depression, HTN, seizure disorder, history of subdural hematoma, TIA, TBI, presents to the hospital with complaints abdominal pain as well as ? Constipation, as well as bladder and bowel incontinence. Patient is very vague and a poor historian when given history, he states that he has to strain very hard in order to relieve himself to move his bowels, reports lower abdominal pain, nonradiating, the pain is 8/10, constant for the past month, has difficulty moving his bowels, reports urinary incontinence no urinary urgency dysuria or frequency. Patient reports that sometimes his stools also watery. He denies any fever, no chills. He does complain of bright red blood per rectum. He denies having any shortness of breath although on my exam patient is having significant audible wheezing, denies any orthopnea or PND, no lower extremity edema. Denies any chest pain. Patient reports that he drinks a significant amount of wine and liquor 4 to 5 times a week. He reports that he is feeling like is withdrawing right now. Per report obtained from ED patient was found AMS covered in feces. Noted to have bright blood in feces after having multiple episodes of diarrhea in the ED. On arrival to the ED patient hemodynamically stable no significant abnormal vitals Labs are significant for WBC count of 13.1, hemoglobin of 13, hematocrit 39, potassium of 5.5, creatinine of 2.2 with a baseline of around 1.27, urine positive for leukocyte Estrace and WBC COVID-19 negative, stool occult positive for blood Abdominal pelvic CT shows finding consistent with colitis involving the distal sigmoid colon. No pneumatosis to suggest specific evidence of ischemic bowel, no diverticulosis. Review of Systems Review of Systems: Yes all other systems are reviewed and are negative [facility] Medical History Alcohol abuse Alcohol use disorder, severe, in sustained remission Anxiety Cognitive and neurobehavioral dysfunction following brain injury Depression Depression Hernia HTN (hypertension) Hypertension Major depressive disorder, recurrent Major depressive disorder, recurrent severe without psychotic features Seizure disorder Subdural hematoma Subdural hematoma TBI (traumatic brain injury) TBI (traumatic brain injury) TIA (transient ischemic attack) Surgical History H/O brain surgery H/O craniotomy H/O umbilical hernia repair History of cholecystectomy History of hip replacement S/P cholecystectomy Social History Household Members: Other Household Members Other:: [facility] Housing: Other Housing Other:: prison Do you presently have visiting nurse or other home services: No Alcohol intake: current Alcohol intake frequency: does not drink Patient Tobacco Use Status: Never used Tobacco Smoked in Last 30 Days: No e-Cigarette/Vaping Use: Never Used Second Hand Smoke Exposure: No Use of substances other than those prescribed or required for medical reasons: No Have you been hit, kicked, punched, or otherwise hurt by someone within the past year? If so, by whom?: No Do you feel safe in your current relationship?: No Current Relationship Is there a partner from a previous relationship who is making you feel unsafe now?: No Are you made to feel afraid or neglected: No Advance Directives: No Advance Directives Information Provided: No (declined) Advance Directives on File: No Advance Directives Date on File: 05/27/19 Do you have thoughts of harming others: None Do you have a plan to hurt others: No Plan Recently lost weight without trying: No Nutrition Risks: No Nutritional Risk Poor oral hygiene: No service: No Current occupational status: disabled Sexual orientation: Straight/Heterosexual Meds Allergies Allergy/AdvReac Type Severity Reaction Status Date / Time fentanyl [FENTANYL] Allergy Intermediate unknown Verified 04/08/22 07:00 Home Medications Medication Instructions Recorded Confirmed Last Taken Type albuterol sulfate 90 mcg/actuation 180 mcg inhalation Q6H PRN Wheezing 04/07/22 09/18/22 Unknown History aerosol inhaler cholecalciferol (vitamin D3) 10 10 mcg PO DAILY 04/07/22 09/18/22 Unknown History mcg (400 unit) capsule (Vitamin D3) finasteride 5 mg tablet 1 tab PO DAILY 04/07/22 09/18/22 Unknown History lamotrigine 200 mg tablet 1 tab PO BID 04/07/22 09/18/22 Unknown History (Lamictal) latanoprost 0.005 % eye drops 1 drp ophthalmic (eye) BEDTIME 04/07/22 09/18/22 Unknown History lidocaine 5 % topical patch 1 patch topical Q12H PRN Pain 04/07/22 09/18/22 Unknown History (Lidoderm) lisinopril 20 mg tablet 1 tab PO DAILY 04/07/22 09/18/22 Unknown History lorazepam 0.5 mg tablet 0.5 mg PO Q6H PRN Anxiety 04/07/22 09/18/22 Unknown History multivitamin 1 tab PO DAILY 04/07/22 09/18/22 Unknown History omeprazole 20 mg capsule,delayed 1 cap PO BID 04/07/22 09/18/22 Unknown History release polyvinyl alcohol 1.4 % eye drops 1 drp ophthalmic (eye) Q1H PRN Dry 04/07/22 09/18/22 Unknown History (Artificial Tears (polyvinyl Eyes alcohol)) quetiapine 100 mg tablet 100 mg PO BEDTIME 04/07/22 09/18/22 Unknown History quetiapine 25 mg tablet 25 mg PO DAILY 04/07/22 09/18/22 Unknown History quetiapine 50 mg tablet 50 mg PO DAILY@1200 04/07/22 09/18/22 Unknown History trazodone 150 mg tablet 1 tab PO BEDTIME PRN Sleep 04/07/22 09/18/22 Unknown History nortriptyline 50 mg capsule 50 mg PO BEDTIME 08/04/22 09/18/22 Unknown History oxybutynin chloride 10 mg 10 mg PO DAILY 08/04/22 09/18/22 Unknown History tablet,extended release 24 hr gabapentin 400 mg capsule 1 cap PO TID 09/02/22 09/18/22 Unknown History tamsulosin 0.4 mg capsule 1 cap PO DAILY 09/18/22 09/18/22 Unknown History Physical Exam Vital Signs and Narrative: Vital Signs: Last Vital Signs Temp 96.6 F L 09/17/22 19:36 Pulse 90 09/17/22 20:55 Resp 22 H 09/17/22 20:55 BP 158/78 H 09/17/22 20:55 Pulse Ox 95 09/17/22 20:55 O2 Del Method 09/17/22 20:55 BMI result Body Mass Index 30.8 Const: Other: Patient is alert to and oriented to self and place General: cooperative and no acute distress Eyes: General: appearance normal, both eyes and all related structures Resp: Other: Audible wheezing Effort & Inspection: normal respiratory effort Cardio: Rate: regular rate Rhythm: regular rhythm GI: Other: Abdomen is tender to palpation in the lower quadrant Palpation (GI): Soft to palpation Auscultation: normal bowel sounds Skin: General skin exam: no rashes or lesions noted Neuro: Cognition (Neuro): normal cognition Extrem: General: Yes normal to inspection and Yes no pedal edema Results Labs CBC and Chem 7: 09/17/22 17:16 09/18/22 01:09 Labs: Laboratory Results - last 24 hr 09/17/22 09/17/22 09/17/22 17:11 17:16 17:16 MCV 96.8 MCH 31.6 MCHC 32.6 RDW 12.6 Plt Count 214 MPV 9.4 Immature Gran % (Auto) 1.2 H Neut % (Auto) 79.8 H Lymph % (Auto) 9.8 L [place] % (Auto) 8.7 Eos % (Auto) 0.3 Baso % (Auto) 0.2 Lymph # (Auto) 1.3 Island # (Auto) 1.1 Eos # (Auto) 0.0 Baso # (Auto) 0.0 Abs Immat Gran (auto) 0.16 H Absolute Neuts (auto) 10.4 H Absolute Nucleated RBC 0.000 Nucleated RBC % (auto) 0.0 PT INR Anion Gap 20 Estim Creat Clear Calc 42.2 Estimated GFR 30 Random Glucose 97 Lactic Acid Calcium 9.5 Total Bilirubin 0.5 AST 28 ALT 45 H Alkaline Phosphatase 90 Troponin I High Sens B-Natriuretic Peptide Total Protein 6.9 Albumin 4.3 Urine Color Urine Appearance Urine pH Ur Specific [place] Urine Protein Urine Glucose (UA) Urine Ketones Urine Blood Urine Nitrite Ur Leukocyte Esterase Urine RBC Urine WBC Ur Squamous Epith Cells Urine Bacteria Hyaline Casts Stool Occult Blood C. difficile Tox B Gene Influenza Type A (PCR) NEGATIVE Influenza Type B (PCR) NEGATIVE RSV RNA Qual (PCR) NEGATIVE SARS-CoV-2 RNA (RT-PCR) NEGATIVE Blood Type Antibody Screen Antibody Identification Antigen Identification 09/17/22 09/17/22 09/17/22 17:16 17:17 17:17 MCV MCH MCHC RDW Plt Count MPV Immature Gran % (Auto) Neut % (Auto) Lymph % (Auto) Island % (Auto) Eos % (Auto) Baso % (Auto) Lymph # (Auto) [place] # (Auto) Eos # (Auto) Baso # (Auto) Abs Immat Gran (auto) Absolute Neuts (auto) Absolute Nucleated RBC Nucleated RBC % (auto) PT 11.6 INR 1.0 Anion Gap Estim Creat Clear Calc Estimated GFR Random Glucose Lactic Acid 1.8 Calcium Total Bilirubin AST ALT Alkaline Phosphatase Troponin I High Sens 4.0 B-Natriuretic Peptide < 10 Total Protein Albumin Urine Color Urine Appearance Urine pH Ur Specific [place] Urine Protein Urine Glucose (UA) Urine Ketones Urine Blood Urine Nitrite Ur Leukocyte Esterase Urine RBC Urine WBC Ur Squamous Epith Cells Urine Bacteria Hyaline Casts Stool Occult Blood C. difficile Tox B Gene Influenza Type A (PCR) Influenza Type B (PCR) RSV RNA Qual (PCR) SARS-CoV-2 RNA (RT-PCR) Blood Type Antibody Screen Antibody Identification Antigen Identification 09/17/22 09/17/22 09/17/22 17:21 17:30 18:15 MCV MCH MCHC RDW Plt Count MPV Immature Gran % (Auto) Neut % (Auto) Lymph % (Auto) Island % (Auto) Eos % (Auto) Baso % (Auto) Lymph # (Auto) [place] # (Auto) Eos # (Auto) Baso # (Auto) Abs Immat Gran (auto) Absolute Neuts (auto) Absolute Nucleated RBC Nucleated RBC % (auto) PT INR Anion Gap Estim Creat Clear Calc Estimated GFR Random Glucose Lactic Acid Calcium Total Bilirubin AST ALT Alkaline Phosphatase Troponin I High Sens B-Natriuretic Peptide Total Protein Albumin Urine Color Urine Appearance Urine pH Ur Specific [place] Urine Protein Urine Glucose (UA) Urine Ketones Urine Blood Urine Nitrite Ur Leukocyte Esterase Urine RBC Urine WBC Ur Squamous Epith Cells Urine Bacteria Hyaline Casts Stool Occult Blood POSITIVE C. difficile Tox B Gene NEGATIVE Influenza Type A (PCR) Influenza Type B (PCR) RSV RNA Qual (PCR) SARS-CoV-2 RNA (RT-PCR) Blood Type O Positive Antibody Screen POSITIVE Antibody Identification Anti-E Antigen Identification E Antigen - NEGATIVE 09/17/22 18:56 MCV MCH MCHC RDW Plt Count MPV Immature Gran % (Auto) Neut % (Auto) Lymph % (Auto) Island % (Auto) Eos % (Auto) Baso % (Auto) Lymph # (Auto) [place] # (Auto) Eos # (Auto) Baso # (Auto) Abs Immat Gran (auto) Absolute Neuts (auto) Absolute Nucleated RBC Nucleated RBC % (auto) PT INR Anion Gap Estim Creat Clear Calc Estimated GFR Random Glucose Lactic Acid Calcium Total Bilirubin AST ALT Alkaline Phosphatase Troponin I High Sens B-Natriuretic Peptide Total Protein Albumin Urine Color Yellow Urine Appearance Clear Urine pH 5.5 Ur Specific [place] 1.020 Urine Protein Trace Urine Glucose (UA) Negative Urine Ketones Negative Urine Blood Negative Urine Nitrite Negative Ur Leukocyte Esterase Small (1+) H Urine RBC 0-2 Urine WBC 11-20 H Ur Squamous Epith Cells 3-5 Urine Bacteria None Seen Hyaline Casts 3-5 Stool Occult Blood C. difficile Tox B Gene Influenza Type A (PCR) Influenza Type B (PCR) RSV RNA Qual (PCR) SARS-CoV-2 RNA (RT-PCR) Blood Type Antibody Screen Antibody Identification Antigen Identification Imaging Radiologist's Impressions: Impressions Chest X-Ray 09/17/22 18:07 IMPRESSION: Unremarkable examination. Abdomen/Pelvis CT 09/17/22 20:05 IMPRESSION: 1. Findings compatible with colitis involving the distal sigmoid colon. No pneumatosis to suggest specific evidence of ischemic bowel although this possibility cannot be definitively excluded. No evidence of sigmoid diverticulosis to suggest this represents diverticulitis. 2. No additional acute intra-abdominal process. 3. Cirrhotic liver morphology. 4. Multiple chronic appearing lower thoracic and lumbar compression fractures. 5. Additional ancillary findings, as described. Assessment and Plan (1) Acute colitis: Status: Acute (2) ADORE (acute kidney injury): Status: Acute (3) Dehydration: Status: Acute (4) Hyperkalemia: Status: Acute (5) UTI (urinary tract infection): Status: Acute (6) Alcohol abuse with withdrawal: Status: Acute (7) Bright red blood per rectum: Status: Acute Plan 67-year-old male with past medical history of TBI, among others presents to the hospital with various complaints including constipation/diarrhea/loss of bowel control as well as loss of bladder control found to have the following # acute colitis - evidence of acute colitis on CT imaging - no evidence of constipation - will treat with IV antibiotics - IV fluids - monitor - at this time no significant evidence of ischemic colitis # ADORE - likely prerenal secondary to dehydration - will treat with IV fluids - follow BMP # hyperkalemia - likely secondary to ADORE - IV fluid - follow BMP # UTI - positive UA - will treat with IV antibiotics - follow cultures # dehydration - likely in the setting of diarrhea as well as alcohol abuse - IV fluids # alcohol abuse with withdrawal - will treat with phenobarb protocol - thiamine and folic acid supplement # bright blood per rectum - likely secondary to hemorrhoidal bleed - will consult GI - hemoglobin stable - follow CBC # wheezing - DuoNeb p.r.n. - chest x-ray negative # history of seizure disorder - continue antiseizure medications # hypertension - stable - continue antihypertensives - will hold lisinopril in the setting of ADORE DVT prophylaxis: SCDs in the setting of bleed Given the patient's various issues including need for antibiotics for acute colitis, dehydration requiring IV fluids for management of ADORE patient require minimum 2 night inpatient hospital stay for management and evaluation Quality Stroke Does the patient have a stroke diagnosis?: No VTE Prior VTE?: No VTE Risk Level:: Medical - moderate - high VTE Device Contraindication: Treatment Not Indicated VTE Drug Contraindication: N/A - Med Ordered
[2022-09-18] VITALS (10 sets, daily range): BP systolic 127–183; BP diastolic 68–98; PULSE 65–82; RESP 16–18; TEMP 36.2–37.2; O2SAT 95–100; BMI 30.8
[2022-09-18] MEDS: Lactated Ringers 1,000 ML 100 ML IVCONT ×3 (01:03→19:53)
[2022-09-18] MEDS: cefTRIAXone sodium 1 GM in 0.9 % Sodium Chloride 50 ML IV ×2 (01:07→21:57)
[2022-09-18] MEDS: metroNIDAZOLE 500 MG TABLET PO ×4 (01:07→23:34)
[2022-09-18 01:40] LABS: Alanine Aminotransferase 48 U/L (0-40); Alkaline Phosphatase 83 U/L (39-117); Anion Gap 15 (12-20); Aspartate Amino Transferase 46 U/L (5-37); Bilirubin Total 0.6 mg/dL (0.0-1.0); Blood Urea Nitrogen 25 mg/dL (9-16); Calcium 9.6 mg/dL (8.4-10.2); Carbon Dioxide 22 mmol/L (22-29); Chloride 108 mmol/L (96-108); Creatinine Clr Calc Pharmacy 55.6; Estimated Glomerular Filt Rate 41; Glucose Random 108 mg/dL (60-115); Potassium 5.1 mmol/L (3.3-5.1); Sodium 140 mmol/L (135-145); Total Protein 6.9 g/dL (6.5-8.0)
[2022-09-18] MEDS: PHENobarbitaL sodium 130 MG/ML IM ONCE 390 MG IM (01:45)
--- NOTE | 2022-09-18 03:24 | PC.NURSE ---
Pt is has large amount of blood and mucous from his bowel., no feces noted. Hospitalist is aware .
[2022-09-18] MEDS: PHENobarbitaL sodium 130 MG/ML VIAL IM Q3Hx2 299 MG IM ×2 (03:54→06:43)
[2022-09-18] MEDS: Acetaminophen 325 MG TABLET 650 MG PO ×2 (03:56→19:53)
[2022-09-18 07:00] LABS: MANUAL DIFF FLAG NO
[2022-09-18 07:06] LABS: Basophils Percent Auto 0.3 % (0-2); Eosinophils Absolute Auto 0.2 X10*3/uL (0.0-0.4); Eosinophils Percent Auto 1.7 % (0-4); Hematocrit 40.4 % (42.0-52.0); Hemoglobin 13.3 g/dl (14.0-18.0); Imm Gran Abs Auto 0.09 X10*3/uL (0.00-0.03); Imm Gran Pct Auto 0.9 % (0.0-0.4); Lymphocytes Absolute Auto 1.7 X10*3/uL (1.2-4.9); Lymphocytes Percent Auto 16.3 % (20-40); Mean Corpuscular HGB Conc 32.9 g/dl (31.0-36.0); Mean Corpuscular Hemoglobin 31.7 pg (27.0-33.0); Mean Corpuscular Volume 96.2 fL (80.0-98.0); Mean Platelet Volume 9.7 fL (9.4-12.4); Monocytes Absolute Auto 1.1 X10*3/uL (0.1-1.2); Monocytes Percent Auto 10.5 % (2-11); Neutrophils Absolute Auto 7.3 x10*3/uL (2.0-8.3); Neutrophils Percent Auto 70.3 % (45-73); Platelet Count 209 X10*3/uL (160-400); Red Cell Distribution Width 12.4 % (11.0-16.0); White Blood Count 10.4 X10*3/uL (4.8-10.8)
[2022-09-18 07:19] LABS: Anion Gap 17 (12-20); Blood Urea Nitrogen 25 mg/dL (9-16); Calcium 9.6 mg/dL (8.4-10.2); Carbon Dioxide 22 mmol/L (22-29); Chloride 107 mmol/L (96-108); Estimated Glomerular Filt Rate 46; Glucose Random 88 mg/dL (60-115); Potassium 4.9 mmol/L (3.3-5.1); Sodium 141 mmol/L (135-145)
--- NOTE | 2022-09-18 07:26 | PM.GICN ---
History of Present Illness Data of Consult Service Date: 09/18/22 Requesting physician: Xena Crump Primary Care Provider: Wilmer Enciso MD [facility] Reason for consult: bloody stool- likely hemerrhoid? 67 YM with history of ETOH abuse, anxiety, cognitive and neurobehavioral dysfunction following brain injury, depression, HTN, seizure disorder, history of subdural hematoma, TIA, TBI, seen at [facility] on 09/17/22 with abdominal pain, ?? Constipation with bladder and bowel incontinence.? Patient is a vague and a poor historian and stated that he has to strain very hard in order to relieve himself to move his bowels, reports lower abdominal pain, nonradiating, the pain is 8/10, constant for the past month, has difficulty moving his bowels, Pt reported urinary incontinence no urinary urgency dysuria or frequency.? Patient reports that sometimes his stools also watery.? He denies any fever, no chills.? He does complain of bright red blood per rectum. He denies having any shortness of breath although on my exam patient is having significant audible wheezing, denies any orthopnea or PND, no lower extremity edema.? Denies any chest pain.? Patient reports that he drinks a significant amount of wine and liquor 4 to 5 times a week.? He reports that he is feeling like is withdrawing right now. EGD in [address] Swanson showed erosive esophagitis, hiatal hernia and gastritis. He was treated with pantoprazole 40 mg twice daily and follow-up EGD showed esophagitis had healed. 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 Pt lives in a fpc in [place]. Per report obtained from ED patient was found by AMS covered in feces.? Noted to have bright blood in feces after having multiple episodes of diarrhea in the ED. On arrival to the ED patient hemodynamically stable no significant abnormal vitals Labs are significant for WBC count of 13.1, hemoglobin of 13, hematocrit 39, potassium of 5.5, creatinine of 2.2 with a baseline of around 1.27, urine positive for leukocyte Estrace and WBC COVID-19 negative, stool occult positive for blood 09/17/[address] SCAN SHOWED: 1.? Findings compatible with colitis involving the distal sigmoid colon. No pneumatosis to suggest specific evidence of ischemic bowel although this possibility cannot be definitively excluded. No evidence of sigmoid diverticulosis to suggest this represents diverticulitis. 2.? No additional acute intra-abdominal process. 3.? Cirrhotic liver morphology. 4.? Multiple chronic appearing lower thoracic and lumbar compression fractures. 5.? Additional ancillary findings, as described. Review of Systems Review of Systems: Yes all other systems are reviewed and are negative PMF Past Medical History Medical History Alcohol abuse Alcohol use disorder, severe, in sustained remission Anxiety Cognitive and neurobehavioral dysfunction following brain injury Depression Depression Hernia HTN (hypertension) Hypertension Major depressive disorder, recurrent Major depressive disorder, recurrent severe without psychotic features Seizure disorder Subdural hematoma Subdural hematoma TBI (traumatic brain injury) TBI (traumatic brain injury) TIA (transient ischemic attack) Family History Family History (Updated 11/08/22 @ 13:39 by MICHELE Arevalo) Other Family history unobtainable Surgical History Surgical History H/O brain surgery H/O craniotomy H/O umbilical hernia repair History of cholecystectomy History of hip replacement S/P cholecystectomy Social History Social History (Updated 09/26/22 @ 14:55 by Jamila Curiel) Household Members: Other Household Members Other:: [employer] Housing: Other Housing Other:: retirement Do you presently have visiting nurse or other home services: Yes Alcohol intake: current Alcohol intake frequency: a few times a week Patient Tobacco Use Status: Never used Tobacco e-Cigarette/Vaping Use: Never Used Second Hand Smoke Exposure: No Advance Directives Date on File: 05/27/19 service: No Current occupational status: disabled Sexual orientation: Straight/Heterosexual Meds Allergies Allergy/AdvReac Type Severity Reaction Status Date / Time fentanyl [FENTANYL] Allergy Intermediate unknown Verified 04/08/22 07:00 Active Medications: Current Medications Acetaminophen (Acetaminophen 325 Mg Tablet) 650 mg PO Q6H PRN PRN Reason: Pain, Mild (Pain Scale 1-3) Last Admin: 09/18/22 03:56 Dose: 650 mg Albuterol Sulfate (Albuterol Sulfate 90 Mcg 8 Gm Inhaler) puff INHALE Q6H PRN PRN Reason: Wheezing Amlodipine Besylate (Amlodipine Besylate 2.5 Mg Tablet) 2.5 mg PO DAILY [facility]; Protocol Artificial Tears (Artificial Tears 15 Ml Drops) 1 drop EYE-BOTH Q1H PRN PRN Reason: Dry Eyes Docusate Sodium (Docusate Sodium 100 Mg Capsule) 100 mg PO DAILY PRN PRN Reason: Constipation Finasteride (Finasteride 5 Mg Tablet) 5 mg PO DAILY [facility] Folic Acid (Folic Acid 1 Mg Tablet) 1 mg PO DAILY [facility] Gabapentin (Gabapentin 400 Mg Capsule) 400 mg PO TID [facility] Lactated Ringer's (Lr) 1,000 mls @ 100 mls/hr IVCONT .Q10H [facility] Last Admin: 09/18/22 01:03 Dose: 100 mls/hr Ceftriaxone Sodium 1 gm/ (Sodium Chloride) 50 mls @ 100 mls/hr IV 2200 [facility] Last Infusion: 09/18/22 02:43 Dose: Infused Lamotrigine (Lamotrigine 100 Mg Tablet) 200 mg PO BID [facility] Latanoprost (Latanoprost 0.005 % Ophth No 2.5 Ml Drops) 1 drop EYE-BOTH BEDTIME [facility] Lorazepam (Lorazepam 0.5 Mg Tablet) 0.5 mg PO Q6H PRN PRN Reason: Anxiety Metronidazole (Metronidazole 500 Mg Tablet) 500 mg PO Q8H [facility] Last Admin: 09/18/22 01:07 Dose: 500 mg Multivitamins/Vitamin C (Multivitamin Tablet) 1 tab PO DAILY [facility] Non-Formulary Medication (Lidocaine [Lidoderm]) 1 patch TOPICAL Q12H PRN PRN Reason: Pain Nortriptyline HCl (Nortriptyline Hcl 25 Mg Capsule) 50 mg PO BEDTIME [facility] Omeprazole (Omeprazole 20 Mg Capsule.Dr) 20 mg PO BID [facility] Ondansetron HCl (Ondansetron Hcl 4 Mg/2 Ml Vial) 4 mg IVPUSH Q8H PRN PRN Reason: Nausea and Vomiting Oxybutynin Chloride (Oxybutynin Chloride Er 5 Mg Tab.Er.24) 10 mg PO DAILY [facility] Pharmacy Consult (Consult Rx Etoh Phenob Im/Po) 1 each MISCELLANE ONCE PRN; Protocol PRN Reason: Consult order Phenobarbital (Phenobarbital 30 Mg Tablet) 60 mg PO BID [facility]; Protocol Stop: 09/20/22 09:01 Phenobarbital (Phenobarbital 30 Mg Tablet) 30 mg PO BID [facility]; Protocol Stop: 09/22/22 09:01 Phenobarbital (Phenobarbital 30 Mg Tablet) 30 mg PO DAILY [facility]; Protocol Stop: 09/24/22 09:01 Pramipexole Dihydrochloride (Pramipexole Di-Hcl 0.25 Mg Tablet) 0.25 mg PO TID [facility] Quetiapine Fumarate (Quetiapine Fumarate 25 Mg Tablet) 25 mg PO DAILY [facility] Quetiapine Fumarate (Quetiapine Fumarate 50 Mg Tablet) 50 mg PO DAILY@1200 [facility] Quetiapine Fumarate (Quetiapine Fumarate 100 Mg Tablet) 100 mg PO BEDTIME [facility] Sodium Chloride (0.9 % Sodium Chloride Flush 3 Ml Syringe) 3 ml IVFLUSH QSHIFT TAZ Last Admin: 09/18/22 01:11 Dose: Not Given Tamsulosin HCl (Tamsulosin Hcl 0.4 Mg Capsule) 0.4 mg PO DAILY [facility] Thiamine HCl (Thiamine Hcl 100 Mg Tablet) 100 mg PO DAILY [facility] Trazodone HCl (Trazodone Hcl 50 Mg Tablet) 150 mg PO BEDTIME PRN PRN Reason: Sleep Trazodone HCl (Trazodone Hcl 50 Mg Tablet) 150 mg PO BEDTIME [facility] Vitamin D (Cholecalciferol (Vitamin D3) 10 Mcg Tablet) 10 mcg PO DAILY [facility] Physical Exam Vital Signs: Vital Signs: Last Vital Signs Temp 98.9 F 09/18/22 03:28 Pulse 82 09/18/22 03:28 Resp 18 09/18/22 03:28 BP 168/82 H 09/18/22 03:28 Pulse Ox 98 09/18/22 03:28 O2 Del Method 09/18/22 03:28 BMI result Body Mass Index 30.8 Const: General: healthy appearing and no acute distress Nutritional Appearance: obese Orientation/consciousness: patient oriented x3 Limitations: no limitations HEENT: Head: Yes normal to inspection Ears: hearing grossly normal bilaterally Eyes: Sclerae: sclerae normal Pupils: Equal, round and reactive pupils present Neck: Neck: Yes normal visual inspection Chest: Chest palpation & inspection: normal inspection of the chest Resp: Effort & Inspection: normal respiratory effort Auscultation: clear to auscultation bilaterally Cardio: Palpation: normal PMI Rate: regular rate Rhythm: regular rhythm Heart sounds: S1 normal heart sound present, S2 normal heart sound present and no murmurs GI: Inspection: Yes obesity Palpation (GI): Soft to palpation, Tenderness to palpation present (GI) (Moderate LLQ tenderness without rebound) and No hepatosplenomegaly present Auscultation: normal bowel sounds Rectal Exam - Male: Yes deferred Skin: General skin exam: no rashes or lesions noted Neuro: General: patient oriented x3, gait normal and moves all extremities Cranial nerves: Yes Equal, round and reactive pupils present Psych: Appearance: grossly normal Mental Status: mental status grossly normal Results Labs 09/21/22 10:28 09/20/22 05:44 Labs: Short CBC 09/17/22 09/18/22 Range/Units 17:16 06:10 WBC 13.1 H 10.4 (4.8-10.8) X10*3/uL Hgb 13.0 L 13.3 L (14.0-18.0) g/dl Hct 39.9 L 40.4 L (42.0-52.0) % Plt Count 214 209 (160-400) X10*3/uL BMP 09/17/22 09/18/22 09/18/22 17:16 01:09 06:10 Sodium 139 140 141 Potassium 5.5 H 5.1 4.9 Chloride 106 108 107 Carbon Dioxide 19 L 22 22 BUN 26 H 25 H 25 H Creatinine 2.20 H 1.67 H 1.52 H Calcium 9.5 9.6 9.6 Liver Function 09/17/22 09/18/22 Range/Units 17:16 01:09 Total Bilirubin 0.5 0.6 (0.0-1.0) mg/dL AST 28 46 H D (5-37) U/L ALT 45 H 48 H (0-40) U/L Alkaline Phosphatase 90 83 (39-117) U/L Albumin 4.3 4.0 (3.5-5.0) g/dL Urine 09/17/22 Range/Units 18:56 Urine Color Yellow Urine Appearance Clear Urine pH 5.5 (5.0-9.0) Ur Specific [place] 1.020 (1.005-1.025) Urine Protein Trace (Neg-Trace) mg/dL Urine Glucose (UA) Negative (Negative) mg/dL Assessment and Plan (1) Bright red blood per rectum: Status: Resolved (2) Alcohol abuse with withdrawal: Status: Resolved (3) Colitis: Status: Acute Plan 67 YM with history of ETOH abuse, anxiety, cognitive and neurobehavioral dysfunction following brain injury, depression, HTN, seizure disorder, history of subdural hematoma, TIA, TBI, seen at [facility] on 09/17/22 with abdominal pain, ?? Constipation with bladder and bowel incontinence.? Patient is a vague and a poor historian and stated that he has to strain very hard in order to relieve himself to move his bowels, reports lower abdominal pain, nonradiating, the pain is 8/10, constant for the past month, has difficulty moving his bowels, Pt reported urinary incontinence no urinary urgency dysuria or frequency.? COVID-19 negative, stool occult positive for blood 09/17/[address] SCAN SHOWED: colitis involving the distal sigmoid colon. No pneumatosis to suggest specific evidence of ischemic bowel although this possibility cannot be definitively excluded. No evidence of sigmoid diverticulosis to suggest this represents diverticulitis. 2.Cirrhotic liver morphology. Findings on CT scan are likely due to ischemic or infectious colitis or colon irritation associated with hard stools.. IBD is less likely given acute onset of symptoms RECOMMENDATIONS: Proceed with a flexible sigmoidoscopy today Procedures Date of Service Date of Service: 09/18/22
--- NOTE | 2022-09-18 07:30 | PHA.MEDREC ---
Pharmacy Consult ? Medication Reconciliation Pharmacy has completed the medication reconciliation. Reviewed med rec done by nursing
[2022-09-18] MEDS: amLODIPine Besylate 2.5 MG TABLET PO (09:14)
[2022-09-18] MEDS: Folic Acid 1 MG TABLET PO (09:15)
[2022-09-18] MEDS: QUEtiapine Fumarate 25 MG TABLET PO (09:15)
[2022-09-18] MEDS: Gabapentin 400 MG CAPSULE PO ×3 (09:16→20:03)
[2022-09-18] MEDS: Pramipexole Di-HCL 0.25 MG TABLET PO ×3 (09:16→20:03)
[2022-09-18] MEDS: lamoTRIgine 100 MG TABLET 200 MG PO ×2 (09:17→20:03)
[2022-09-18] MEDS: Finasteride 5 MG TABLET PO (09:17)
[2022-09-18] MEDS: Cholecalciferol (Vitamin D3) 10 MCG TABLET PO (09:17)
[2022-09-18] MEDS: Thiamine HCL 100 MG TABLET PO (09:17)
[2022-09-18] MEDS: 0.9 % Sodium Chloride Flush 3 ML SYRINGE IVFLUSH (09:18)
[2022-09-18] MEDS: Multivitamin TABLET 1 TAB PO (09:23)
[2022-09-18 09:51] LABS: Adenovirus F 40/41 Not Detected (Not Detect.); Astrovirus Not Detected (Not Detect.); Campylobacter Not Detected (Not Detect.); Cryptosporidium Not Detected (Not Detect.); Cyclospora cayetanensis Not Detected (Not Detect.); E. coli EAEC Not Detected (Not Detect.); E. coli EPEC Not Detected (Not Detect.); E. coli ETEC Not Detected (Not Detect.); E. coli STEC Not Detected (Not Detect.); Entamoeba histolytica Not Detected (Not Detect.); Giardia lamblia Not Detected (Not Detect.); Norovirus GI/GII Not Detected (Not Detect.); Plesiomonas shigelloides Not Detected (Not Detect.); Rotavirus A Not Detected (Not Detect.); Salmonella Not Detected (Not Detect.); Sapovirus Not Detected (Not Detect.); Shigella sp./EIEC Not Detected (Not Detect.); Vibrio Not Detected (Not Detect.); Vibrio Cholerae Not Detected (Not Detect.); Yersinia enterocolitica Not Detected (Not Detect.)
[2022-09-18] MEDS: QUEtiapine Fumarate 50 MG TABLET PO (11:55)
--- NOTE | 2022-09-18 12:20 | HO.PM.IMPN ---
Subjective Subjective Date of Service: 09/18/22 Interval History: No sigficant nursing events overnight. Patient has no complaints. States he had blood in stool Constitutional Constitutional: Reports fatigue Cardiovascular Cardiovascular: Reports no additional cardiovascular complaints Respiratory Respiratory: Reports no additional respiratory complaints Gastrointestinal Gastrointestinal: Reports abdominal pain and Reports hematochezia Endocrine Endocrine: Reports fatigue Physical Exam Vital Signs: Vital Signs: Last Vital Signs Temp 98.3 F 09/18/22 11:58 Pulse 75 09/18/22 11:58 Resp 16 09/18/22 11:58 BP 169/83 H 09/18/22 11:58 Pulse Ox 98 09/18/22 11:58 O2 Del Method 09/18/22 11:58 BMI result Body Mass Index 30.8 Middle-aged male lying in bed in no distress Neck supple, no JVD Regular rate and rhythm, S1-S2 heard Regular breath sounds bilaterally, no wheezing or crackles appreciated Abdomen with left sided tenderness, no rigidity, no rebound tenderness, no guarding Patient is awake, alert and oriented to self and place ; no focal motor deficit Psych: Normal mood No pedal edema Objective Data Active Medications Acetaminophen (Acetaminophen 325 Mg Tablet) 650 mg PO Q6H PRN PRN Reason: Pain, Mild (Pain Scale 1-3) Last Admin: 09/18/22 03:56 Dose: 650 mg Documented By: EPI Albuterol Sulfate (Albuterol Sulfate 90 Mcg 8 Gm Inhaler) 1 puff INHALE Q6H PRN PRN Reason: Wheezing Amlodipine Besylate (Amlodipine Besylate 2.5 Mg Tablet) 2.5 mg PO DAILY [facility]; Protocol Last Admin: 09/18/22 09:14 Dose: 2.5 mg Documented By: MARK Artificial Tears (Artificial Tears 15 Ml Drops) 1 drop EYE-BOTH Q1H PRN PRN Reason: Dry Eyes Docusate Sodium (Docusate Sodium 100 Mg Capsule) 100 mg PO DAILY PRN PRN Reason: Constipation Finasteride (Finasteride 5 Mg Tablet) 5 mg PO DAILY [facility] Last Admin: 09/18/22 09:17 Dose: 5 mg Documented By: MARK Folic Acid (Folic Acid 1 Mg Tablet) 1 mg PO DAILY [facility] Last Admin: 09/18/22 09:15 Dose: 1 mg Documented By: MARK Gabapentin (Gabapentin 400 Mg Capsule) 400 mg PO TID [facility] Last Admin: 09/18/22 09:16 Dose: 400 mg Documented By: MARK Lactated Ringer's (Lr) 1,000 mls @ 100 mls/hr IVCONT .Q10H [facility] Last Admin: 09/18/22 09:21 Dose: 100 mls/hr Documented By: MARK Ceftriaxone Sodium 1 gm/ (Sodium Chloride) 50 mls @ 100 mls/hr IV 2200 [facility] Last Infusion: 09/18/22 02:43 Dose: 100 mls/hr Documented By: EPI Lamotrigine (Lamotrigine 100 Mg Tablet) 200 mg PO BID [facility] Last Admin: 09/18/22 09:17 Dose: 200 mg Documented By: MARK Latanoprost (Latanoprost 0.005 % Ophth No 2.5 Ml Drops) 1 drop EYE-BOTH BEDTIME [facility] Lidocaine (Lidocaine 4 % Patch Adh..Patch) 1 patch TRANSDERMA Q12H PRN PRN Reason: Pain Lorazepam (Lorazepam 0.5 Mg Tablet) 0.5 mg PO Q6H PRN PRN Reason: Anxiety Metronidazole (Metronidazole 500 Mg Tablet) 500 mg PO Q8H [facility] Last Admin: 09/18/22 09:16 Dose: 500 mg Documented By: MARK Multivitamins/Vitamin C (Multivitamin Tablet) 1 tab PO DAILY [facility] Last Admin: 09/18/22 09:23 Dose: 1 tab Documented By: MARK Nortriptyline HCl (Nortriptyline Hcl 25 Mg Capsule) 50 mg PO BEDTIME [facility] Omeprazole (Omeprazole 20 Mg Capsule.Dr) 20 mg PO BID@0630,1630 [facility] Ondansetron HCl (Ondansetron Hcl 4 Mg/2 Ml Vial) 4 mg IVPUSH Q8H PRN PRN Reason: Nausea and Vomiting Oxybutynin Chloride (Oxybutynin Chloride Er 5 Mg Tab.Er.24) 10 mg PO DAILY [facility] Last Admin: 09/18/22 09:15 Dose: 10 mg Documented By: MARK Pharmacy Consult (Consult Rx Etoh Phenob Im/Po) 1 each MISCELLANE ONCE PRN; Protocol PRN Reason: Consult order Phenobarbital (Phenobarbital 30 Mg Tablet) 60 mg PO BID [facility]; Protocol Stop: 09/20/22 09:01 Phenobarbital (Phenobarbital 30 Mg Tablet) 30 mg PO BID [facility]; Protocol Stop: 09/22/22 09:01 Phenobarbital (Phenobarbital 30 Mg Tablet) 30 mg PO DAILY [facility]; Protocol Stop: 09/24/22 09:01 Pramipexole Dihydrochloride (Pramipexole Di-Hcl 0.25 Mg Tablet) 0.25 mg PO TID [facility] Last Admin: 09/18/22 09:16 Dose: 0.25 mg Documented By: MARK Quetiapine Fumarate (Quetiapine Fumarate 25 Mg Tablet) 25 mg PO DAILY [facility] Last Admin: 09/18/22 09:15 Dose: 25 mg Documented By: MARK Quetiapine Fumarate (Quetiapine Fumarate 50 Mg Tablet) 50 mg PO DAILY@1200 [facility] Last Admin: 09/18/22 11:55 Dose: 50 mg Documented By: MARK Quetiapine Fumarate (Quetiapine Fumarate 100 Mg Tablet) 100 mg PO BEDTIME [facility] Sodium Chloride (0.9 % Sodium Chloride Flush 3 Ml Syringe) 3 ml IVFLUSH QSHIFT [facility] Last Admin: 09/18/22 09:18 Dose: 3 ml Documented By: MARK Tamsulosin HCl (Tamsulosin Hcl 0.4 Mg Capsule) 0.4 mg PO DAILY@1730 [facility] Thiamine HCl (Thiamine Hcl 100 Mg Tablet) 100 mg PO DAILY [facility] Last Admin: 09/18/22 09:17 Dose: 100 mg Documented By: MARK Trazodone HCl (Trazodone Hcl 50 Mg Tablet) 150 mg PO BEDTIME PRN PRN Reason: Sleep Trazodone HCl (Trazodone Hcl 50 Mg Tablet) 150 mg PO BEDTIME [facility] Vitamin D (Cholecalciferol (Vitamin D3) 10 Mcg Tablet) 10 mcg PO DAILY [facility] Last Admin: 09/18/22 09:17 Dose: 10 mcg Documented By: MARK Labs CBC & Chem 7: 09/18/22 06:10 09/18/22 06:10 Labs: Laboratory Results - last 24 hr 09/17/22 09/17/22 09/17/22 17:11 17:16 17:16 MCV 96.8 MCH 31.6 MCHC 32.6 RDW 12.6 Plt Count 214 MPV 9.4 Immature Gran % (Auto) 1.2 H Neut % (Auto) 79.8 H Lymph % (Auto) 9.8 L [place] % (Auto) 8.7 Eos % (Auto) 0.3 Baso % (Auto) 0.2 Lymph # (Auto) 1.3 [place] # (Auto) 1.1 Eos # (Auto) 0.0 Baso # (Auto) 0.0 Abs Immat Gran (auto) 0.16 H Absolute Neuts (auto) 10.4 H Absolute Nucleated RBC 0.000 Nucleated RBC % (auto) 0.0 PT INR Anion Gap 20 Estim Creat Clear Calc 42.2 Estimated GFR 30 Random Glucose 97 Lactic Acid Calcium 9.5 Total Bilirubin 0.5 AST 28 ALT 45 H Alkaline Phosphatase 90 Troponin I High Sens B-Natriuretic Peptide Total Protein 6.9 Albumin 4.3 Urine Color Urine Appearance Urine pH Ur Specific [place] Urine Protein Urine Glucose (UA) Urine Ketones Urine Blood Urine Nitrite Ur Leukocyte Esterase Urine RBC Urine WBC Ur Squamous Epith Cells Urine Bacteria Hyaline Casts Stool Occult Blood Stl C. cayetanensis PCR Stool Rotavirus A PCR Stl Adenov F 40/41 PCR Stool Astrovirus (PCR) Stool Campylobacter PCR Stool Cryptosporidium PCR Stl Sh Tox Pr E STEC PCR Stool E coli O157 PCR Stl Enterotoxigenic E PCR Stool EPEC (PCR) Stool EAEC (PCR) Stl E. histolytica PCR Stool Giardia Lamblia PCR Stl P. shigelloides PCR Stool Salmonella PCR Stool Sapovirus (PCR) Stl Shigella/EIEC PCR St Y.enterocolitica PCR Stool Vibrio (PCR) Stl Vibrio cholerae PCR Stl Norovirus GI/GII PCR C. difficile Tox B Gene Influenza Type A (PCR) NEGATIVE Influenza Type B (PCR) NEGATIVE RSV RNA Qual (PCR) NEGATIVE SARS-CoV-2 RNA (RT-PCR) NEGATIVE Blood Type Antibody Screen Antibody Identification Antigen Identification Crossmatch (AH) 09/17/22 09/17/22 09/17/22 17:16 17:17 17:17 MCV MCH MCHC RDW Plt Count MPV Immature Gran % (Auto) Neut % (Auto) Lymph % (Auto) [place] % (Auto) Eos % (Auto) Baso % (Auto) Lymph # (Auto) [place] # (Auto) Eos # (Auto) Baso # (Auto) Abs Immat Gran (auto) Absolute Neuts (auto) Absolute Nucleated RBC Nucleated RBC % (auto) PT 11.6 INR 1.0 Anion Gap Estim Creat Clear Calc Estimated GFR Random Glucose Lactic Acid 1.8 Calcium Total Bilirubin AST ALT Alkaline Phosphatase Troponin I High Sens 4.0 B-Natriuretic Peptide < 10 Total Protein Albumin Urine Color Urine Appearance Urine pH Ur Specific [place] Urine Protein Urine Glucose (UA) Urine Ketones Urine Blood Urine Nitrite Ur Leukocyte Esterase Urine RBC Urine WBC Ur Squamous Epith Cells Urine Bacteria Hyaline Casts Stool Occult Blood Stl C. cayetanensis PCR Stool Rotavirus A PCR Stl Adenov F PCR Stool Astrovirus (PCR) Stool Campylobacter PCR Stool Cryptosporidium PCR Stl Sh Tox Pr E STEC PCR Stool E coli O157 PCR Stl Enterotoxigenic E PCR Stool EPEC (PCR) Stool EAEC (PCR) Stl E. histolytica PCR Stool Giardia Lamblia PCR Stl P. shigelloides PCR Stool Salmonella PCR Stool Sapovirus (PCR) Stl Shigella/EIEC PCR St Y.enterocolitica PCR Stool Vibrio (PCR) Stl Vibrio cholerae PCR Stl Norovirus GI/GII PCR C. difficile Tox B Gene Influenza Type A (PCR) Influenza Type B (PCR) RSV RNA Qual (PCR) SARS-CoV-2 RNA (RT-PCR) Blood Type Antibody Screen Antibody Identification Antigen Identification Crossmatch (AH) 09/17/22 09/17/22 09/17/22 17:21 17:30 17:30 MCV MCH MCHC RDW Plt Count MPV Immature Gran % (Auto) Neut % (Auto) Lymph % (Auto) [place] % (Auto) Eos % (Auto) Baso % (Auto) Lymph # (Auto) [place] # (Auto) Eos # (Auto) Baso # (Auto) Abs Immat Gran (auto) Absolute Neuts (auto) Absolute Nucleated RBC Nucleated RBC % (auto) PT INR Anion Gap Estim Creat Clear Calc Estimated GFR Random Glucose Lactic Acid Calcium Total Bilirubin AST ALT Alkaline Phosphatase Troponin I High Sens B-Natriuretic Peptide Total Protein Albumin Urine Color Urine Appearance Urine pH Ur Specific [place] Urine Protein Urine Glucose (UA) Urine Ketones Urine Blood Urine Nitrite Ur Leukocyte Esterase Urine RBC Urine WBC Ur Squamous Epith Cells Urine Bacteria Hyaline Casts Stool Occult Blood POSITIVE Stl C. cayetanensis PCR Not Detected Stool Rotavirus A PCR Not Detected Stl Adenov F PCR Not Detected Stool Astrovirus (PCR) Not Detected Stool Campylobacter PCR Not Detected Stool Cryptosporidium PCR Not Detected Stl Sh Tox Pr E STEC PCR Not Detected Stool E coli O157 PCR Not applicable Stl Enterotoxigenic E PCR Not Detected Stool EPEC (PCR) Not Detected Stool EAEC (PCR) Not Detected Stl E. histolytica PCR Not Detected Stool Giardia Lamblia PCR Not Detected Stl P. shigelloides PCR Not Detected Stool Salmonella PCR Not Detected Stool Sapovirus (PCR) Not Detected Stl Shigella/EIEC PCR Not Detected St Y.enterocolitica PCR Not Detected Stool Vibrio (PCR) Not Detected Stl Vibrio cholerae PCR Not Detected Stl Norovirus GI/GII PCR Not Detected C. difficile Tox B Gene NEGATIVE Influenza Type A (PCR) Influenza Type B (PCR) RSV RNA Qual (PCR) SARS-CoV-2 RNA (RT-PCR) Blood Type Antibody Screen Antibody Identification Antigen Identification Crossmatch (AHG) 09/17/22 09/17/22 09/18/22 18:15 18:56 01:09 MCV MCH MCHC RDW Plt Count MPV Immature Gran % (Auto) Neut % (Auto) Lymph % (Auto) [place] % (Auto) Eos % (Auto) Baso % (Auto) Lymph # (Auto) [place] # (Auto) Eos # (Auto) Baso # (Auto) Abs Immat Gran (auto) Absolute Neuts (auto) Absolute Nucleated RBC Nucleated RBC % (auto) PT INR Anion Gap 15 Estim Creat Clear Calc 55.6 Estimated GFR 41 Random Glucose 108 Lactic Acid Calcium 9.6 Total Bilirubin 0.6 AST 46 H D ALT 48 H Alkaline Phosphatase 83 Troponin I High Sens B-Natriuretic Peptide Total Protein 6.9 Albumin 4.0 Urine Color Yellow Urine Appearance Clear Urine pH 5.5 Ur Specific [place] 1.020 Urine Protein Trace Urine Glucose (UA) Negative Urine Ketones Negative Urine Blood Negative Urine Nitrite Negative Ur Leukocyte Esterase Small (1+) H Urine RBC 0-2 Urine WBC 11-20 H Ur Squamous Epith Cells 3-5 Urine Bacteria None Seen Hyaline Casts 3-5 Stool Occult Blood Stl C. cayetanensis PCR Stool Rotavirus A PCR Stl Adenov F 40 PCR Stool Astrovirus (PCR) Stool Campylobacter PCR Stool Cryptosporidium PCR Stl Sh Tox Pr E STEC PCR Stool E coli O157 PCR Stl Enterotoxigenic E PCR Stool EPEC (PCR) Stool EAEC (PCR) Stl E. histolytica PCR Stool Giardia Lamblia PCR Stl P. shigelloides PCR Stool Salmonella PCR Stool Sapovirus (PCR) Stl Shigella/EIEC PCR St Y.enterocolitica PCR Stool Vibrio (PCR) Stl Vibrio cholerae PCR Stl Norovirus GI/GII PCR C. difficile Tox B Gene Influenza Type A (PCR) Influenza Type B (PCR) RSV RNA Qual (PCR) SARS-CoV-2 RNA (RT-PCR) Blood Type O Positive Antibody Screen POSITIVE Antibody Identification Anti-E Antigen Identification E Antigen - NEGATIVE Crossmatch (AHG) See Detail 09/18/22 09/18/22 06:10 06:10 MCV 96.2 MCH 31.7 MCHC 32.9 RDW 12.4 Plt Count 209 MPV 9.7 Immature Gran % (Auto) 0.9 H Neut % (Auto) 70.3 Lymph % (Auto) 16.3 L [place] % (Auto) 10.5 Eos % (Auto) 1.7 Baso % (Auto) 0.3 Lymph # (Auto) 1.7 [place] # (Auto) 1.1 Eos # (Auto) 0.2 Baso # (Auto) 0.0 Abs Immat Gran (auto) 0.09 H Absolute Neuts (auto) 7.3 Absolute Nucleated RBC 0.000 Nucleated RBC % (auto) 0.0 PT INR Anion Gap 17 Estim Creat Clear Calc 61.0 Estimated GFR 46 Random Glucose 88 Lactic Acid Calcium 9.6 Total Bilirubin AST ALT Alkaline Phosphatase Troponin I High Sens B-Natriuretic Peptide Total Protein Albumin Urine Color Urine Appearance Urine pH Ur Specific [place] Urine Protein Urine Glucose (UA) Urine Ketones Urine Blood Urine Nitrite Ur Leukocyte Esterase Urine RBC Urine WBC Ur Squamous Epith Cells Urine Bacteria Hyaline Casts Stool Occult Blood Stl C. cayetanensis PCR Stool Rotavirus A PCR Stl Adenov F 40/41 PCR Stool Astrovirus (PCR) Stool Campylobacter PCR Stool Cryptosporidium PCR Stl Sh Tox Pr E STEC PCR Stool E coli O157 PCR Stl Enterotoxigenic E PCR Stool EPEC (PCR) Stool EAEC (PCR) Stl E. histolytica PCR Stool Giardia Lamblia PCR Stl P. shigelloides PCR Stool Salmonella PCR Stool Sapovirus (PCR) Stl Shigella/EIEC PCR St Y.enterocolitica PCR Stool Vibrio (PCR) Stl Vibrio cholerae PCR Stl Norovirus GI/GII PCR C. difficile Tox B Gene Influenza Type A (PCR) Influenza Type B (PCR) RSV RNA Qual (PCR) SARS-CoV-2 RNA (RT-PCR) Blood Type Antibody Screen Antibody Identification Antigen Identification Crossmatch (AHG) Microbiology Microbiology Results: Microbiology 09/17/22 20:41 Urine Culture - Preliminary Urine clean catch - Urine munoz top Culture too young to evaluate. Assessment and Plan (1) Alcohol abuse with withdrawal: Status: Acute (2) Bright red blood per rectum: Status: Acute (3) UTI (urinary tract infection): Status: Acute (4) Hyperkalemia: Status: Acute (5) ADORE (acute kidney injury): Status: Acute (6) HTN (hypertension): Status: Acute (7) Cognitive and neurobehavioral dysfunction following brain injury: Status: Acute Plan 67-year-old male with past medical history of TBI, among others presents to the hospital for evaluation of blood in stool #. Acute colitis #. Bright red blood per rectum -On IV empiric antibiotics, ceftriaxone and flagyl. -GI consult pending. Monitor H&H #. Acute kidney injury, pre renal -due to IVVD. Improving with IV fluids. Monitor urine output and creatinine. Hold lisinopril and avoid nephrotoxins #. Hyperkalemia - secondary to ADORE - resolved #. UTI - positive UA - will treat with IV antibiotics as above - follow cultures #. Alcohol use disorder - will treat with phenobarb protocol - thiamine and folic acid supplement #. History of seizure disorder - continue lamictal # Essential hypertension - stable - continue antihypertensives - will hold lisinopril in the setting of ADORE #. Mood disorder following TBI -continue po home medications DVT prophylaxis:? SCDs in the setting of bleed Diet: NPO until GI evaluation Full code Admit as inpatient and will require two night minimum hospital stay for need for IV fluid resuscitation and monitoring of H& H. GI evaluation pending Quality Stroke Does the patient have a stroke diagnosis?: No VTE Prior VTE?: No VTE Risk Level:: Medical - moderate - high VTE Device Contraindication: N/A - Device Ordered VTE Drug Contraindication: Treatment Not Indicated
--- NOTE | 2022-09-18 14:04 | HO.ANESPROP2 ---
HPI - Anesthesia Eval Consult details Narrative: 67 M for flex Sig Multiple coborbidities including TBI , UTI , ADORE , seizure disorder PMF Active Problems Active Problems: All Active Problems (Updated 09/18/22 @ 06:09 by Xena Crump MD) Bright red blood per rectum (Acute) Alcohol abuse with withdrawal (Acute) UTI (urinary tract infection) (Acute) Hyperkalemia (Acute) Acute colitis (Acute) Colitis (Acute) Dehydration (Acute) ADORE (acute kidney injury) (Acute) Toxic metabolic encephalopathy (Acute) Lethargy (Acute) Hypotension (Acute) Weakness (Acute) Major depressive disorder, recurrent severe without psychotic features (Acute) Cognitive and neurobehavioral dysfunction following brain injury (Acute) HTN (hypertension) (Acute) Past Medical History Medical History (Updated 08/23/23 @ 21:58 by Addy Haskins MD) 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, recurrent severe without psychotic features Sinusitis Aggressive behavior Alcohol use disorder, moderate, dependence TBI (traumatic brain injury) Anxiety TIA (transient ischemic attack) Hypertension Alcohol abuse Subdural hematoma Seizure disorder Depression Major depressive disorder, recurrent HTN (hypertension) Hernia Functional capacity: wheelchair bound Family History Family History Other Family history unobtainable Family history of problems with anesthesia: No Surgical History Surgical History History of cholecystectomy H/O craniotomy H/O umbilical hernia repair History of hip replacement S/P cholecystectomy H/O brain surgery History of Problems with Anesthesia: No Social History Household Members: None Household Members Other:: [employer]. Housing: Long-Term Housing Other:: snf Do you presently have visiting nurse or other home services: No Alcohol intake: never Patient Tobacco Use Status: Never used Tobacco e-Cigarette/Vaping Use: Never Used Second Hand Smoke Exposure: No Advance Directives Date on File: 05/27/19 service: No Current occupational status: disabled Sexual orientation: Straight/Heterosexual Meds Allergies Allergy/AdvReac Type Severity Reaction Status Date / Time fentanyl [FENTANYL] Allergy Intermediate unknown Verified 06/30/23 09:56 Active Medications: Current Medications Acetaminophen (Acetaminophen 325 Mg Tablet) 650 mg PO Q6H PRN PRN Reason: Pain, Mild (Pain Scale 1-3) Last Admin: 09/18/22 03:56 Dose: 650 mg Albuterol Sulfate (Albuterol Sulfate 90 Mcg 8 Gm Inhaler) 1 puff INHALE Q6H PRN PRN Reason: Wheezing Amlodipine Besylate (Amlodipine Besylate 2.5 Mg Tablet) 2.5 mg PO DAILY [facility]; Protocol Last Admin: 09/18/22 09:14 Dose: 2.5 mg Artificial Tears (Artificial Tears 15 Ml Drops) 1 drop EYE-BOTH Q1H PRN PRN Reason: Dry Eyes Docusate Sodium (Docusate Sodium 100 Mg Capsule) 100 mg PO DAILY PRN PRN Reason: Constipation Finasteride (Finasteride 5 Mg Tablet) 5 mg PO DAILY [facility] Last Admin: 09/18/22 09:17 Dose: 5 mg Folic Acid (Folic Acid 1 Mg Tablet) 1 mg PO DAILY [facility] [place] Last Admin: 09/18/22 09:15 Dose: 1 mg Gabapentin (Gabapentin 400 Mg Capsule) 400 mg PO TID [facility] [place] Last Admin: 09/18/22 09:16 Dose: 400 mg Lactated Ringer's (Lr) 1,000 mls @ 100 mls/hr IVCONT .Q10H [facility] Last Infusion: 09/18/22 13:49 Dose: 0 mls/hr Ceftriaxone Sodium 1 gm/ (Sodium Chloride) 50 mls @ 100 mls/hr IV 2200 TAZ Last Infusion: 09/18/22 02:43 Dose: Infused Lamotrigine (Lamotrigine 100 Mg Tablet) 200 mg PO BID [facility] [place] Last Admin: 09/18/22 09:17 Dose: 200 mg Latanoprost (Latanoprost 0.005 % Ophth No 2.5 Ml Drops) 1 drop EYE-BOTH BEDTIME [facility] Lidocaine (Lidocaine 4 % Patch Adh..Patch) 1 patch TRANSDERMA Q12H PRN PRN Reason: Pain Lorazepam (Lorazepam 0.5 Mg Tablet) 0.5 mg PO Q6H PRN PRN Reason: Anxiety Metronidazole (Metronidazole 500 Mg Tablet) 500 mg PO Q8H [facility] Last Admin: 09/18/22 09:16 Dose: 500 mg Multivitamins/Vitamin C (Multivitamin Tablet) 1 tab PO DAILY [facility] [place] Last Admin: 09/18/22 09:23 Dose: 1 tab Nortriptyline HCl (Nortriptyline Hcl 25 Mg Capsule) 50 mg PO BEDTIME [facility] Omeprazole (Omeprazole 20 Mg Capsule.Dr) 20 mg PO BID@0630,1630 [facility] Ondansetron HCl (Ondansetron Hcl 4 Mg/2 Ml Vial) 4 mg IVPUSH Q8H PRN PRN Reason: Nausea and Vomiting Oxybutynin Chloride (Oxybutynin Chloride Er 5 Mg Tab.Er.24) 10 mg PO DAILY [facility] [place] Last Admin: 09/18/22 09:15 Dose: 10 mg Pharmacy Consult (Consult Rx Etoh Phenob Im/Po) 1 each MISCELLANE ONCE PRN; Protocol PRN Reason: Consult order Phenobarbital (Phenobarbital 30 Mg Tablet) 60 mg PO BID [facility]; Protocol Stop: 09/20/22 09:01 Phenobarbital (Phenobarbital 30 Mg Tablet) 30 mg PO BID [facility]; Protocol Stop: 09/22/22 09:01 Phenobarbital (Phenobarbital 30 Mg Tablet) 30 mg PO DAILY [facility]; Protocol Stop: 09/24/22 09:01 Pramipexole Dihydrochloride (Pramipexole Di-Hcl 0.25 Mg Tablet) 0.25 mg PO TID [facility] [place] Last Admin: 09/18/22 09:16 Dose: 0.25 mg Quetiapine Fumarate (Quetiapine Fumarate 25 Mg Tablet) 25 mg PO DAILY [facility] [place] Last Admin: 09/18/22 09:15 Dose: 25 mg Quetiapine Fumarate (Quetiapine Fumarate 50 Mg Tablet) 50 mg PO DAILY@1200 [facility] [place] Last Admin: 09/18/22 11:55 Dose: 50 mg Quetiapine Fumarate (Quetiapine Fumarate 100 Mg Tablet) 100 mg PO BEDTIME [facility] [place] Sodium Chloride (0.9 % Sodium Chloride Flush 3 Ml Syringe) 3 ml IVFLUSH QSHIFT [facility] [place] Last Admin: 09/18/22 09:18 Dose: 3 ml Tamsulosin HCl (Tamsulosin Hcl 0.4 Mg Capsule) 0.4 mg PO DAILY@1730 [facility] [place] Thiamine HCl (Thiamine Hcl 100 Mg Tablet) 100 mg PO DAILY [facility] [place] Last Admin: 09/18/22 09:17 Dose: 100 mg Trazodone HCl (Trazodone Hcl 50 Mg Tablet) 150 mg PO BEDTIME PRN PRN Reason: Sleep Trazodone HCl (Trazodone Hcl 50 Mg Tablet) 150 mg PO BEDTIME [facility] [place] Vitamin D (Cholecalciferol (Vitamin D3) 10 Mcg Tablet) 10 mcg PO DAILY [facility] Last Admin: 09/18/22 09:17 Dose: 10 mcg Home Medications Medication Instructions Recorded Confirmed Last Taken Type dextran 70-hypromellose eye drops 1 drp ophthalmic (eye) Q2H PRN Dry 06/30/23 10/06/23 Unknown History in a dropperette (Artificial Tears Eyes (PF) drops in a dropperette) hydrocortisone 1 % topical cream 1 appl topical BID PRN itchy feet 06/30/23 10/06/23 Unknown History ondansetron HCl 4 mg tablet 4 mg PO Q6H PRN Nausea And Vomiting 06/30/23 10/06/23 Unknown History sennosides 8.6 mg tablet (Senna 17.2 mg PO BEDTIME PRN Constipation 06/30/23 10/06/23 Unknown History Lax) Exam Exam Date and Time: September 18, 2022 1404 Height,Weight and Vital Signs: Height 6 ft 2 in Weight 108.862 kg Last Vital Signs Temp 97.9 F 09/18/22 13:58 Pulse 76 09/18/22 13:58 Resp 16 09/18/22 13:58 BP 168/84 H 09/18/22 13:58 Pulse Ox 98 09/18/22 13:58 O2 Del Method 09/18/22 13:58 Pertinent Lab Results Pertinent Lab Results: Laboratory Tests 09/17/22 09/17/22 09/17/22 17:11 17:16 17:16 WBC 13.1 H RBC 4.12 L Hgb 13.0 L Hct 39.9 L MCV 96.8 MCH 31.6 MCHC 32.6 RDW 12.6 Plt Count 214 MPV 9.4 Immature Gran % (Auto) 1.2 H Neut % (Auto) 79.8 H Lymph % (Auto) 9.8 L Saunders % (Auto) 8.7 Eos % (Auto) 0.3 Baso % (Auto) 0.2 Lymph # (Auto) 1.3 Saunders # (Auto) 1.1 Eos # (Auto) 0.0 Baso # (Auto) 0.0 Abs Immat Gran (auto) 0.16 H Absolute Neuts (auto) 10.4 H Absolute Nucleated RBC 0.000 Nucleated RBC % (auto) 0.0 PT INR Sodium 139 Potassium 5.5 H Chloride 106 Carbon Dioxide 19 L Anion Gap 20 BUN 26 H Creatinine 2.20 H Estim Creat Clear Calc 42.2 Estimated GFR 30 Random Glucose 97 Lactic Acid Calcium 9.5 Total Bilirubin 0.5 AST 28 ALT 45 H Alkaline Phosphatase 90 Troponin I High Sens B-Natriuretic Peptide Total Protein 6.9 Albumin 4.3 Urine Color Urine Appearance Urine pH Ur Specific [place] Urine Protein Urine Glucose (UA) Urine Ketones Urine Blood Urine Nitrite Ur Leukocyte Esterase Urine RBC Urine WBC Ur Squamous Epith Cells Urine Bacteria Hyaline Casts Stool Occult Blood Stl C. cayetanensis PCR Stool Rotavirus A PCR Stl Adenov F 40/41 PCR Stool Astrovirus (PCR) Stool Campylobacter PCR Stool Cryptosporidium PCR Stl Sh Tox Pr E STEC PCR Stool E coli O157 PCR Stl Enterotoxigenic E PCR Stool EPEC (PCR) Stool EAEC (PCR) Stl E. histolytica PCR Stool Giardia Lamblia PCR Stl P. shigelloides PCR Stool Salmonella PCR Stool Sapovirus (PCR) Stl Shigella/EIEC PCR St Y.enterocolitica PCR Stool Vibrio (PCR) Stl Vibrio cholerae PCR Stl Norovirus GI/GII PCR C. difficile Tox B Gene Influenza Type A (PCR) NEGATIVE Influenza Type B (PCR) NEGATIVE RSV RNA Qual (PCR) NEGATIVE SARS-CoV-2 RNA (RT-PCR) NEGATIVE Blood Type Antibody Screen Antibody Identification Antigen Identification Crossmatch (AHG) 09/17/22 09/17/22 09/17/22 17:16 17:17 17:17 WBC RBC Hgb Hct MCV MCH MCHC RDW Plt Count MPV Immature Gran % (Auto) Neut % (Auto) Lymph % (Auto) Saunders % (Auto) Eos % (Auto) Baso % (Auto) Lymph # (Auto) Saunders # (Auto) Eos # (Auto) Baso # (Auto) Abs Immat Gran (auto) Absolute Neuts (auto) Absolute Nucleated RBC Nucleated RBC % (auto) PT 11.6 INR 1.0 Sodium Potassium Chloride Carbon Dioxide Anion Gap BUN Creatinine Estim Creat Clear Calc Estimated GFR Random Glucose Lactic Acid 1.8 Calcium Total Bilirubin AST ALT Alkaline Phosphatase Troponin I High Sens 4.0 B-Natriuretic Peptide < 10 Total Protein Albumin Urine Color Urine Appearance Urine pH Ur Specific [place] Urine Protein Urine Glucose (UA) Urine Ketones Urine Blood Urine Nitrite Ur Leukocyte Esterase Urine RBC Urine WBC Ur Squamous Epith Cells Urine Bacteria Hyaline Casts Stool Occult Blood Stl C. cayetanensis PCR Stool Rotavirus A PCR Stl Adenov F 40/ PCR Stool Astrovirus (PCR) Stool Campylobacter PCR Stool Cryptosporidium PCR Stl Sh Tox Pr E STEC PCR Stool E coli O157 PCR Stl Enterotoxigenic E PCR Stool EPEC (PCR) Stool EAEC (PCR) Stl E. histolytica PCR Stool Giardia Lamblia PCR Stl P. shigelloides PCR Stool Salmonella PCR Stool Sapovirus (PCR) Stl Shigella/EIEC PCR St Y.enterocolitica PCR Stool Vibrio (PCR) Stl Vibrio cholerae PCR Stl Norovirus GI/GII PCR C. difficile Tox B Gene Influenza Type A (PCR) Influenza Type B (PCR) RSV RNA Qual (PCR) SARS-CoV-2 RNA (RT-PCR) Blood Type Antibody Screen Antibody Identification Antigen Identification Crossmatch (AHG) 09/17/22 09/17/22 09/17/22 17:21 17:30 17:30 WBC RBC Hgb Hct MCV MCH MCHC RDW Plt Count MPV Immature Gran % (Auto) Neut % (Auto) Lymph % (Auto) Saunders % (Auto) Eos % (Auto) Baso % (Auto) Lymph # (Auto) Saunders # (Auto) Eos # (Auto) Baso # (Auto) Abs Immat Gran (auto) Absolute Neuts (auto) Absolute Nucleated RBC Nucleated RBC % (auto) PT INR Sodium Potassium Chloride Carbon Dioxide Anion Gap BUN Creatinine Estim Creat Clear Calc Estimated GFR Random Glucose Lactic Acid Calcium Total Bilirubin AST ALT Alkaline Phosphatase Troponin I High Sens B-Natriuretic Peptide Total Protein Albumin Urine Color Urine Appearance Urine pH Ur Specific [place] Urine Protein Urine Glucose (UA) Urine Ketones Urine Blood Urine Nitrite Ur Leukocyte Esterase Urine RBC Urine WBC Ur Squamous Epith Cells Urine Bacteria Hyaline Casts Stool Occult Blood POSITIVE Stl C. cayetanensis PCR Not Detected Stool Rotavirus A PCR Not Detected Stl Adenov F PCR Not Detected Stool Astrovirus (PCR) Not Detected Stool Campylobacter PCR Not Detected Stool Cryptosporidium PCR Not Detected Stl Sh Tox Pr E STEC PCR Not Detected Stool E coli O157 PCR Not applicable Stl Enterotoxigenic E PCR Not Detected Stool EPEC (PCR) Not Detected Stool EAEC (PCR) Not Detected Stl E. histolytica PCR Not Detected Stool Giardia Lamblia PCR Not Detected Stl P. shigelloides PCR Not Detected Stool Salmonella PCR Not Detected Stool Sapovirus (PCR) Not Detected Stl Shigella/EIEC PCR Not Detected St Y.enterocolitica PCR Not Detected Stool Vibrio (PCR) Not Detected Stl Vibrio cholerae PCR Not Detected Stl Norovirus GI/GII PCR Not Detected C. difficile Tox B Gene NEGATIVE Influenza Type A (PCR) Influenza Type B (PCR) RSV RNA Qual (PCR) SARS-CoV-2 RNA (RT-PCR) Blood Type Antibody Screen Antibody Identification Antigen Identification Crossmatch (AHG) 09/17/22 09/17/22 09/18/22 18:15 18:56 01:09 WBC RBC Hgb Hct MCV MCH MCHC RDW Plt Count MPV Immature Gran % (Auto) Neut % (Auto) Lymph % (Auto) Saunders % (Auto) Eos % (Auto) Baso % (Auto) Lymph # (Auto) Saunders # (Auto) Eos # (Auto) Baso # (Auto) Abs Immat Gran (auto) Absolute Neuts (auto) Absolute Nucleated RBC Nucleated RBC % (auto) PT INR Sodium 140 Potassium 5.1 Chloride 108 Carbon Dioxide 22 Anion Gap 15 BUN 25 H Creatinine 1.67 H Estim Creat Clear Calc 55.6 Estimated GFR 41 Random Glucose 108 Lactic Acid Calcium 9.6 Total Bilirubin 0.6 AST 46 H D ALT 48 H Alkaline Phosphatase 83 Troponin I High Sens B-Natriuretic Peptide Total Protein 6.9 Albumin 4.0 Urine Color Yellow Urine Appearance Clear Urine pH 5.5 Ur Specific [place] 1.020 Urine Protein Trace Urine Glucose (UA) Negative Urine Ketones Negative Urine Blood Negative Urine Nitrite Negative Ur Leukocyte Esterase Small (1+) H Urine RBC 0-2 Urine WBC 11-20 H Ur Squamous Epith Cells 3-5 Urine Bacteria None Seen Hyaline Casts 3-5 Stool Occult Blood Stl C. cayetanensis PCR Stool Rotavirus A PCR Stl Adenov F 40/41 PCR Stool Astrovirus (PCR) Stool Campylobacter PCR Stool Cryptosporidium PCR Stl Sh Tox Pr E STEC PCR Stool E coli O157 PCR Stl Enterotoxigenic E PCR Stool EPEC (PCR) Stool EAEC (PCR) Stl E. histolytica PCR Stool Giardia Lamblia PCR Stl P. shigelloides PCR Stool Salmonella PCR Stool Sapovirus (PCR) Stl Shigella/EIEC PCR St Y.enterocolitica PCR Stool Vibrio (PCR) Stl Vibrio cholerae PCR Stl Norovirus GI/GII PCR C. difficile Tox B Gene Influenza Type A (PCR) Influenza Type B (PCR) RSV RNA Qual (PCR) SARS-CoV-2 RNA (RT-PCR) Blood Type O Positive Antibody Screen POSITIVE Antibody Identification Anti-E Antigen Identification E Antigen - NEGATIVE Crossmatch (AHG) See Detail 09/18/22 09/18/22 06:10 06:10 WBC 10.4 RBC 4.20 L Hgb 13.3 L Hct 40.4 L MCV 96.2 MCH 31.7 MCHC 32.9 RDW 12.4 Plt Count 209 MPV 9.7 Immature Gran % (Auto) 0.9 H Neut % (Auto) 70.3 Lymph % (Auto) 16.3 L Saunders % (Auto) 10.5 Eos % (Auto) 1.7 Baso % (Auto) 0.3 Lymph # (Auto) 1.7 Saunders # (Auto) 1.1 Eos # (Auto) 0.2 Baso # (Auto) 0.0 Abs Immat Gran (auto) 0.09 H Absolute Neuts (auto) 7.3 Absolute Nucleated RBC 0.000 Nucleated RBC % (auto) 0.0 PT INR Sodium 141 Potassium 4.9 Chloride 107 Carbon Dioxide 22 Anion Gap 17 BUN 25 H Creatinine 1.52 H Estim Creat Clear Calc 61.0 Estimated GFR 46 Random Glucose 88 Lactic Acid Calcium 9.6 Total Bilirubin AST ALT Alkaline Phosphatase Troponin I High Sens B-Natriuretic Peptide Total Protein Albumin Urine Color Urine Appearance Urine pH Ur Specific [place] Urine Protein Urine Glucose (UA) Urine Ketones Urine Blood Urine Nitrite Ur Leukocyte Esterase Urine RBC Urine WBC Ur Squamous Epith Cells Urine Bacteria Hyaline Casts Stool Occult Blood Stl C. cayetanensis PCR Stool Rotavirus A PCR Stl Adenov F 40/41 PCR Stool Astrovirus (PCR) Stool Campylobacter PCR Stool Cryptosporidium PCR Stl Sh Tox Pr E STEC PCR Stool E coli O157 PCR Stl Enterotoxigenic E PCR Stool EPEC (PCR) Stool EAEC (PCR) Stl E. histolytica PCR Stool Giardia Lamblia PCR Stl P. shigelloides PCR Stool Salmonella PCR Stool Sapovirus (PCR) Stl Shigella/EIEC PCR St Y.enterocolitica PCR Stool Vibrio (PCR) Stl Vibrio cholerae PCR Stl Norovirus GI/GII PCR C. difficile Tox B Gene Influenza Type A (PCR) Influenza Type B (PCR) RSV RNA Qual (PCR) SARS-CoV-2 RNA (RT-PCR) Blood Type Antibody Screen Antibody Identification Antigen Identification Crossmatch (AHG) Narrative Narrative: 09/17/2022 Sinus rhythm with 1st degree A-V block T wave abnormality, consider lateral ischemia Intra-ventricular conduction delay Low voltage QRS Left axis deviation Abnormal ECG When compared with ECG of 21-APR-2022 13:38, Heart rate has increased Airway Mallampati Class: IV Loose/Missing/Broken Teeth: Yes Assessment and Plan Assessment Anesthesia Assessment: Anesthesia Plan Discussed and Chart Reviewed Final Anesthetic Review Family History of Problems with Anesthesia: No History of Problems with Anesthesia: No NPO: Yes ASA Class: III and Emergency Final Preanesthetic Review: Meds/Allgs Chart Reviewed, Consent Obtained/Reviewed and Anes Risks/Benef Reviewed Patient Risk: High Procedure Risk: Intermediate Anesthetic Plan Anesthetic Plan: MAC: and Agree w/ Assess. and Plan Disposition: Standard PACU
[2022-09-18] MEDS: Sodium Phosphate,Mono-Dibasic 133 ML ENEMA PR (14:42)
--- NOTE | 2022-09-18 14:48 | PM.OP ---
Brief Operative Note Date of Service: 09/18/22 Pre-op diagnosis: Rectal bleeding, abnormal CT scan of the colon Post-op diagnosis: other (colitis, diverticulosis, hemorrhoids) Procedure: FLEXIBLE SIGMOIDOSCOPY TO 60 CM WITH BIOPSIES Surgeon: Jimenez Steiner MD Anesthesia: MAC Was an System Support Analyst used for this Procedure?: Yes System Support Analyst: Niki Turpin Estimated blood loss (mL): 1 Pathology: other (A. sigmoid bxs, R/O ischemic colitis) Condition: stable Disposition: PACU
--- NOTE | 2022-09-18 15:10 | P.OP_ITS ---
Operative Note Operative Note Date of Service: 09/18/22 Narrative: Pre-op diagnosis: Rectal bleeding, abnormal CT scan of the colon Post-op diagnosis:?other (colitis, diverticulosis, hemorrhoids) Surgeon: Jimenez Steiner MD Anesthesia:?MAC FLEXIBLE SIGMOIDOSCOPY TO SPLENIC FLEXURE AT 60 CMS WITH BIOPSIES Consent: Indications for the procedure and potential complications of bleeding, perforation, reaction to medications and missed diagnosis were discussed with the patient and informed consent was obtained. Instrument: Olympus PCF H 190 L variable stiffness pediatric colonoscope Monitoring: Vital signs and clinical assessment, intermittent blood pressure monitoring, continuous EKG monitoring, Pulse oximetry and Carbon Dioxide monitoring were done throughout the procedure. Procedure: The patient was placed in the left lateral decubitis position and pre-procedure medications were administered. After a digital rectal examination of the ano-rectum, the video colonoscope was inserted into the rectum and advanced through the colon to the splenic flexure. The colonoscope was slowly withdrawn in a retrograde panoramic fashion and the colon mucosa was carefully examined including a retroflexed view of the rectum. Findings and interventions are described below. Procedure Difficulty: Without difficulty Findings: Descending Colon: Edema, erythema with submucosal hemorrhages from 30 to 50 cms - biopsies were obtained Moderate diverticulosis Sigmoid Colon: Edema, erythema with submucosal hemorrhages from 30 to 50 cms - biopsies were obtained Moderate diverticulosis Rectum: Patchy ulcerations Ano-rectum: Moderate internal hemorrhoids Colon preparation: Good Impression and Post Procedure Diagnosis: Colonoscopy Findings: Edema, erythema, ulcerations with submucosal hemorrhages from 30 to 50 cms suggestive of ischemic colitis - biopsies were obtained No active bleeding noted during examination Moderate diverticulosis seen in the left colon Moderate hemorrhoids on retroflexed exam. Plan: Await pathology results Continue IV antibiotics. Start a clear liquid diet today and advance diet as tolerated. Patient to FU in the GI clinic with Dr Swanson (his primary service counter cashier) to discuss outpatient evaluation with an EGD and Colonoscopy.. Above findings were reviewed with the patient.
--- NOTE | 2022-09-18 15:10 | MHC.CM.PN ---
Addendum entered by Jennifer Live 09/18/22 15:37: OF NOTE: DAWOOD'S PHONE NUMBER IS INCORRECT IN EXPANSE. THE CORRECT PHONE NUMBER IS [phone] TASK SENT FOR THIS TO BE CORRECTED Original Note: CM MET WITH PTS HCP, DAWOOD, WHO IS ALSO THE NURSE AT HIS [facility] RETIREMENT SHE REPORTS THE PT LIVES THERE WITH THREE OTHER RESIDENTS SHE SAYS HE CURRENTLY REQUIRES W/C TRANSPORT AND A CASE[employer] STEDY TO TRANSFER SHE SAYS HE DOES CALL [facility] FOR RIDES AND GOES OUT ON HIS OWN ALTHOUGH THEY HAVE ASKED HIM NOT TO SHE SAYS THERE IS STAFF AT THE AT ALL TIMES, HOWEVER SHE IS THE ONLY RN AND OVERSEES 6 HOMES PTS PCP IS WILLIAM FRANCOIS HCP ON FILE HE IS MARIAM SMITH X 3 IMM DELIVERED TO [facility] DC PLAN TBD: EXPECTED TO RETURN TO CURRENT VIA BLS DAWOOD REPORTS THEY HAVE SEVERAL CONCERNS ABOUT THE PT RETURNING TO THE RETIREMENT SHE SAYS [facility] WAS SUPPOSED TO FIND HIM AN ALTERNATE PLACEMENT IN APRIL SHE SAYS HE IS DRINKING, GOING OUT, AND BEING VERBALLY ABUSIVE TO STAFF AND OTHER RESIDENTS SHE SAYS HE ALSO GOES OUT TO [employer] WITHOUT TELLING THEM AND GETS OTHER MEDS SHE REPORTS 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
[2022-09-18] MEDS: Omeprazole 20 MG CAPSULE.DR PO (16:15)
[2022-09-18] MEDS: Tamsulosin HCL 0.4 MG CAPSULE PO (17:32)
[2022-09-18] MEDS: LORazepam 0.5 MG TABLET PO (19:53)
[2022-09-18] MEDS: PHENobarbitaL 30 MG TABLET 60 MG PO (20:02)
[2022-09-18] MEDS: QUEtiapine Fumarate 100 MG TABLET PO (20:03)
[2022-09-18] MEDS: traZODone HCL 50 MG TABLET 150 MG PO (20:03)
[2022-09-18] MEDS: Nortriptyline HCl 25 MG CAPSULE 50 MG PO (20:03)
[2022-09-19] VITALS (7 sets, daily range): BP systolic 148–193; BP diastolic 75–92; PULSE 66–73; RESP 16–19; TEMP 36.3–36.6; O2SAT 98–99
[2022-09-19] MEDS: Lactated Ringers 1,000 ML 100 ML IVCONT (05:19)
[2022-09-19] MEDS: Omeprazole 20 MG CAPSULE.DR PO ×2 (05:34→16:12)
[2022-09-19 05:59] LABS: MANUAL DIFF FLAG NO
[2022-09-19 06:22] LABS: Basophils Percent Auto 0.4 % (0-2); Eosinophils Absolute Auto 0.2 X10*3/uL (0.0-0.4); Eosinophils Percent Auto 2.7 % (0-4); Hematocrit 36.5 % (42.0-52.0); Imm Gran Abs Auto 0.07 X10*3/uL (0.00-0.03); Lymphocytes Absolute Auto 1.6 X10*3/uL (1.2-4.9); Lymphocytes Percent Auto 22.1 % (20-40); Mean Corpuscular HGB Conc 32.9 g/dl (31.0-36.0); Mean Corpuscular Hemoglobin 31.4 pg (27.0-33.0); Mean Corpuscular Volume 95.5 fL (80.0-98.0); Mean Platelet Volume 9.9 fL (9.4-12.4); Monocytes Absolute Auto 0.7 X10*3/uL (0.1-1.2); Monocytes Percent Auto 9.1 % (2-11); Neutrophils Absolute Auto 4.8 x10*3/uL (2.0-8.3); Neutrophils Percent Auto 64.7 % (45-73); Platelet Count 173 X10*3/uL (160-400); Red Blood Count 3.82 X10*6/uL (4.60-5.80); Red Cell Distribution Width 12.2 % (11.0-16.0); White Blood Count 7.3 X10*3/uL (4.8-10.8)
[2022-09-19 06:40] LABS: Anion Gap 16 (12-20); Blood Urea Nitrogen 15 mg/dL (9-16); Calcium 8.7 mg/dL (8.4-10.2); Carbon Dioxide 22 mmol/L (22-29); Chloride 105 mmol/L (96-108); Estimated Glomerular Filt Rate > 60; Glucose Random 88 mg/dL (60-115); Potassium 4.2 mmol/L (3.3-5.1); Sodium 139 mmol/L (135-145)
[2022-09-19] MEDS: Cholecalciferol (Vitamin D3) 10 MCG TABLET PO (08:50)
[2022-09-19] MEDS: PHENobarbitaL 30 MG TABLET 60 MG PO ×2 (08:51→19:33)
[2022-09-19] MEDS: Gabapentin 400 MG CAPSULE PO ×3 (08:52→19:32)
[2022-09-19] MEDS: Pramipexole Di-HCL 0.25 MG TABLET PO ×3 (08:52→19:32)
[2022-09-19] MEDS: Thiamine HCL 100 MG TABLET PO (08:52)
[2022-09-19] MEDS: amLODIPine Besylate 2.5 MG TABLET PO (08:52)
[2022-09-19] MEDS: QUEtiapine Fumarate 25 MG TABLET PO (08:52)
[2022-09-19] MEDS: lamoTRIgine 100 MG TABLET 200 MG PO ×2 (08:52→19:32)
[2022-09-19] MEDS: metroNIDAZOLE 500 MG TABLET PO ×3 (08:52→23:52)
[2022-09-19] MEDS: Folic Acid 1 MG TABLET PO (08:53)
[2022-09-19] MEDS: Multivitamin TABLET 1 TAB PO (08:53)
[2022-09-19] MEDS: Finasteride 5 MG TABLET PO (08:53)
[2022-09-19] MEDS: amLODIPine Besylate 5 MG TABLET PO (11:37)
[2022-09-19] MEDS: QUEtiapine Fumarate 50 MG TABLET PO (11:37)
--- NOTE | 2022-09-19 13:04 | P.PNIM_ITS ---
Subjective Subjective Date of Service: 09/19/22 Interval History: Seen and examined this morning Follow-up for colitis Still with bloody mucousy stool Denies abdominal pain, fever, chills Review of Systems Review of Systems: Yes all other systems are reviewed and are negative Constitutional Constitutional: Denies chills and Denies fever(s) Cardiovascular Cardiovascular: Denies chest pain, Denies palpitations and Reports dyspnea (reports chronic dyspnea because he is extremely out of shape ) Respiratory Respiratory: Denies cough and Reports dyspnea (reports chronic dyspnea because he is extremely out of shape ) Gastrointestinal Gastrointestinal: Denies abdominal pain, Denies nausea and Denies vomiting Endocrine Endocrine: Denies palpitations Physical Exam Vital Signs: Vital Signs: Last Vital Signs Temp 97.7 F 09/19/22 11: Pulse 73 09/19/22 11:22 Resp 19 09/19/22 11:22 BP 148/75 H 09/19/22 12:43 Pulse Ox 98 09/19/22 11:22 O2 Del Method 09/19/22 11:22 BMI result Body Mass Index 30.8 Const: General: cooperative, comfortable, no acute distress, alert and awake Nutritional Appearance: overweight Orientation/consciousness: patient oriented x3 Resp: Effort & Inspection: normal respiratory effort and able to speak in complete sentences Auscultation: clear to auscultation bilaterally Cardio: Rate: regular rate Heart sounds: S1 normal heart sound present and S2 normal heart sound present GI: Inspection: No distended Palpation (GI): Soft to palpation and nontender Neuro: General: patient oriented x3 Extrem: General: Yes no pedal edema Objective Data Active Medications Acetaminophen (Acetaminophen 325 Mg Tablet) 650 mg PO Q6H PRN PRN Reason: Pain, Mild (Pain Scale 1-3) Last Admin: 09/18/22 19:53 Dose: 650 mg Documented By: FADIA Albuterol Sulfate (Albuterol Sulfate 90 Mcg 8 Gm Inhaler) 1 puff INHALE Q6H PRN PRN Reason: Wheezing Amlodipine Besylate (Amlodipine Besylate 2.5 Mg Tablet) 2.5 mg PO DAILY TAZ; P rotocol Last Admin: 09/19/22 08:52 Dose: 2.5 mg Documented By: MARK Artificial Tears (Artificial Tears 15 Ml Drops) 1 drop EYE-BOTH Q1H PRN PRN Reason: Dry Eyes Docusate Sodium (Docusate Sodium 100 Mg Capsule) 100 mg PO DAILY PRN PRN Reason: Constipation Finasteride (Finasteride 5 Mg Tablet) 5 mg PO DAILY [facility] Last Admin: 09/19/22 08:53 Dose: 5 mg Documented By: MARK Folic Acid (Folic Acid 1 Mg Tablet) 1 mg PO DAILY [facility] Last Admin: 09/19/22 08:53 Dose: 1 mg Documented By: MARK Gabapentin (Gabapentin 400 Mg Capsule) 400 mg PO TID [facility] Last Admin: 09/19/22 08:52 Dose: 400 mg Documented By: MARK Ceftriaxone Sodium 1 gm/ (Sodium Chloride) 50 mls @ 100 mls/hr IV 2200 [facility] Last Infusion: 09/18/22 22:35 Dose: 0 mls/hr Documented By: FADIA Lamotrigine (Lamotrigine 100 Mg Tablet) 200 mg PO BID [facility] Last Admin: 09/19/22 08:52 Dose: 200 mg Documented By: MARK Latanoprost (Latanoprost 0.005 % Ophth No 2.5 Ml Drops) 1 drop EYE-BOTH BEDTIME [facility] Last Admin: 09/18/22 20:04 Dose: Not Given Documented By: FADIA Non-Admin Reason: Med Not Available Lidocaine (Lidocaine 4 % Patch Adh..Patch) 1 patch TRANSDERMA Q12H PRN PRN Reason: Pain Lorazepam (Lorazepam 0.5 Mg Tablet) 0.5 mg PO Q6H PRN PRN Reason: Anxiety Last Admin: 09/18/22 19:53 Dose: 0.5 mg Documented By: FADIA Metronidazole (Metronidazole 500 Mg Tablet) 500 mg PO Q8H [facility] Last Admin: 09/19/22 08:52 Dose: 500 mg Documented By: MARK Multivitamins/Vitamin C (Multivitamin Tablet) 1 tab PO DAILY [facility] Last Admin: 09/19/22 08:53 Dose: 1 tab Documented By: MARK Nortriptyline HCl (Nortriptyline Hcl 25 Mg Capsule) 50 mg PO BEDTIME [facility] Last Admin: 09/18/22 20:03 Dose: 50 mg Documented By: FADIA Omeprazole (Omeprazole 20 Mg Capsule.Dr) 20 mg PO BID@0630,1630 [facility] Last Admin: 09/19/22 05:34 Dose: 20 mg Documented By: FADIA Ondansetron HCl (Ondansetron Hcl 4 Mg/2 Ml Vial) 4 mg IVPUSH Q8H PRN PRN Reason: Nausea and Vomiting Oxybutynin Chloride (Oxybutynin Chloride Er 5 Mg Tab.Er.24) 10 mg PO DAILY [facility] Last Admin: 09/19/22 08:52 Dose: 10 mg Documented By: MARK Pharmacy Consult (Consult Rx Etoh Phenob Im/Po) 1 each MISCELLANE ONCE PRN; Protocol PRN Reason: Consult order Phenobarbital (Phenobarbital 30 Mg Tablet) 60 mg PO BID [facility]; Protocol Stop: 09/20/22 09:01 Last Admin: 09/19/22 08:51 Dose: 60 mg Documented By: MARK Phenobarbital (Phenobarbital 30 Mg Tablet) 30 mg PO BID [facility]; Protocol Stop: 09/22/22 09:01 Phenobarbital (Phenobarbital 30 Mg Tablet) 30 mg PO DAILY [facility]; Protocol Stop: 09/24/22 09:01 Pramipexole Dihydrochloride (Pramipexole Di-Hcl 0.25 Mg Tablet) 0.25 mg PO TID [facility] Last Admin: 09/19/22 08:52 Dose: 0.25 mg Documented By: MARK Quetiapine Fumarate (Quetiapine Fumarate 25 Mg Tablet) 25 mg PO DAILY [facility] Last Admin: 09/19/22 08:52 Dose: 25 mg Documented By: MARK Quetiapine Fumarate (Quetiapine Fumarate 50 Mg Tablet) 50 mg PO DAILY@1200 [facility] Last Admin: 09/19/22 11:37 Dose: 50 mg Documented By: MARK Quetiapine Fumarate (Quetiapine Fumarate 100 Mg Tablet) 100 mg PO BEDTIME [facility] Last Admin: 09/18/22 20:03 Dose: 100 mg Documented By: FADIA Sodium Biphosphate/Sodium Phosphate (Sodium Phosphate,[place]-Dibasic 133 Ml Enema) 133 ml [place] ONCE PRN PRN Reason: Pre-Op Surgical Prep Last Admin: 09/18/22 14:42 Dose: 133 ml Documented By: LOREE Sodium Chloride (0.9 % Sodium Chloride Flush 3 Ml Syringe) 3 ml IVFLUSH QSHIFT [facility] Last Admin: 09/19/22 07:12 Dose: Not Given Documented By: MARK Non-Admin Reason: IV Running Tamsulosin HCl (Tamsulosin Hcl 0.4 Mg Capsule) 0.4 mg PO DAILY@1730 [facility] Last Admin: 09/18/22 17:32 Dose: 0.4 mg Documented By: MARK Thiamine HCl (Thiamine Hcl 100 Mg Tablet) 100 mg PO DAILY [facility] Last Admin: 09/19/22 08:52 Dose: 100 mg Documented By: MARK Trazodone HCl (Trazodone Hcl 50 Mg Tablet) 150 mg PO BEDTIME PRN PRN Reason: Sleep Trazodone HCl (Trazodone Hcl 50 Mg Tablet) 150 mg PO BEDTIME [facility] Last Admin: 09/18/22 20:03 Dose: 150 mg Documented By: FADIA Vitamin D (Cholecalciferol (Vitamin D3) 10 Mcg Tablet) 10 mcg PO DAILY [facility] Last Admin: 09/19/22 08:50 Dose: 10 mcg Documented By: MARK Labs CBC & Chem 7: 09/19/22 05:10 09/19/22 05:10 Labs: Laboratory Results - last 24 hr 09/19/22 09/19/22 05:10 05:10 MCV 95.5 MCH 31.4 MCHC 32.9 RDW 12.2 Plt Count 173 MPV 9.9 Immature Gran % (Auto) 1.0 H Neut % (Auto) 64.7 Lymph % (Auto) 22.1 Eaton % (Auto) 9.1 Eos % (Auto) 2.7 Baso % (Auto) 0.4 Lymph # (Auto) 1.6 [place]aton # (Auto) 0.7 Eos # (Auto) 0.2 Baso # (Auto) 0.0 Abs Immat Gran (auto) 0.07 H Absolute Neuts (auto) 4.8 Absolute Nucleated RBC 0.000 Nucleated RBC % (auto) 0.0 Anion Gap 16 Estim Creat Clear Calc 102.0 Estimated GFR > 60 Random Glucose 88 Calcium 8.7 D Microbiology Microbiology Results: Microbiology 09/17/22 20:41 Urine Culture - Final Urine clean catch - Urine munoz top 09/17/22 17:26 Blood Culture - Preliminary Blood - Venous No growth after 24 hours. 09/17/22 17:17 Blood Culture - Preliminary Blood - Venous No growth after 24 hours. Assessment and Plan (1) Bright red blood per rectum: Status: Acute (2) Acute colitis: Status: Acute Plan 67-year-old male with past medical history of TBI, among others presents to the hospital for evaluation of blood in stool Acute colitis/Bright red blood per rectum. still with blood/mucus in stool seen by GI, s/p flexible sigmoidoscopy 09/18 - finding suggestive of ischemic colitis Continue antibiotics, ceftriaxone and flagyl. H/H stable clear diet, advance as tolerated Acute kidney injury, pre renal -due to IVVD. Improving with IV fluids. Monitor urine output and creatinine. Hold lisinopril and avoid nephrotoxins Hyperkalemia secondary to ADORE. 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 SCDs in the setting of bleed Full code attending - dr. contreras Requires ongoing inpatient hospitalization for IV antibiotics and close monitoring of CBC in light of ongoing rectal bleeding/colitis Quality Stroke Does the patient have a stroke diagnosis?: No VTE Prior VTE?: No VTE Risk Level:: Medical - moderate - high VTE Device Contraindication: N/A - Device Ordered VTE Drug Contraindication: Treatment Not Indicated
--- NOTE | 2022-09-19 13:24 | HO.POSTANES ---
Post Anesthesia Evaluation Post Anesthesia Evaluation Vital Signs: Vital Signs Temp Pulse Resp BP Pulse Ox O2 Del Method 09/19/22 12:43 148/75 H 09/19/22 11:22 97.7 F 73 19 193/90 H 98 Room Air 09/19/22 07:48 97.3 F 71 19 184/92 H 98 Room Air 09/19/22 04:00 97.7 F 67 18 150/82 H 98 Room Air Anesthesia: Monitored Mental Status: Awake Pain Control: Satisfactory Nausea/Vomiting: None Hydration: Adequate Anesthesia-Related Issues: No Anes. Related Issues
[2022-09-19] MEDS: 0.9 % Sodium Chloride Flush 3 ML SYRINGE IVFLUSH ×2 (16:12→19:33)
[2022-09-19] MEDS: LORazepam 0.5 MG TABLET PO ×2 (16:21→23:32)
[2022-09-19] MEDS: Tamsulosin HCL 0.4 MG CAPSULE PO (18:11)
[2022-09-19] MEDS: Latanoprost 0.005 % Ophth Sol 2.5 ML DROPS 1 DROP EYE-BOTH (19:30)
[2022-09-19] MEDS: Nortriptyline HCl 25 MG CAPSULE 50 MG PO (19:32)
[2022-09-19] MEDS: QUEtiapine Fumarate 100 MG TABLET PO (19:33)
--- NOTE | 2022-09-19 23:00 | PM.EVENT ---
Event Note Date of Service: 09/19/22 Event Note: pt refused his IV reocephin which was sched at 10 pm because he was woken by nurse for it. he was verbally aggressive to nurse and rude. refused to have the abx. rescheduled for AM
[2022-09-19] MEDS: traZODone HCL 50 MG TABLET 150 MG PO (23:32)
[2022-09-20] VITALS (13 sets, daily range): BP systolic 126–170; BP diastolic 70–96; PULSE 69–87; RESP 16–19; TEMP 36.1–37.2; O2SAT 96–99
--- NOTE | 2022-09-20 03:37 | PC.NURSE ---
Pt seen on bed alert and orietned with flat affect, c/o chronic back pain but relieved by repositioning, pt was offered his night meds but refused to take his TRazodone and prefer it later of the night when he goes to sleep, pt was instructed to call whenever he is ready for it. Revisited pt around 2229 and saw him sleeping and awaken spontaneously when I was at his bedside, I told him that it's time for his IV antibiotics, pt said he doesnt want to take it as I woke him up and should not wake people up when they are sleeping I explained to him that he is in the hospital the med is important to clear his UTI and Colitis,he still said he refused and told me to get out of his room. Dr. Crump was notified, med schedule changed to days by . Later pt was yelling and howling, and verbalized being upset being awake and awaken,pt was reapproached, pt agreed to take prn Ativan and scheduled trazodone, slept after.
[2022-09-20] MEDS: Omeprazole 20 MG CAPSULE.DR PO ×2 (05:20→15:20)
[2022-09-20 06:42] LABS: Anion Gap 16 (12-20); Blood Urea Nitrogen 9 mg/dL (9-16); Carbon Dioxide 26 mmol/L (22-29); Chloride 103 mmol/L (96-108); Creatinine Clr Calc Pharmacy 98.7; Estimated Glomerular Filt Rate > 60; Glucose Random 98 mg/dL (60-115); Potassium 3.7 mmol/L (3.3-5.1); Sodium 141 mmol/L (135-145)
[2022-09-20] MEDS: Pramipexole Di-HCL 0.25 MG TABLET PO ×3 (07:44→21:35)
[2022-09-20] MEDS: Folic Acid 1 MG TABLET PO (07:44)
[2022-09-20] MEDS: QUEtiapine Fumarate 25 MG TABLET PO (07:44)
[2022-09-20] MEDS: lisinopriL 20 MG TABLET PO (07:45)
[2022-09-20] MEDS: Thiamine HCL 100 MG TABLET PO (07:45)
[2022-09-20] MEDS: Gabapentin 400 MG CAPSULE PO ×3 (07:45→21:35)
[2022-09-20] MEDS: lamoTRIgine 100 MG TABLET 200 MG PO ×2 (07:46→21:35)
[2022-09-20] MEDS: PHENobarbitaL 30 MG TABLET 60 MG PO (07:46)
[2022-09-20] MEDS: Cholecalciferol (Vitamin D3) 10 MCG TABLET PO (07:47)
[2022-09-20 07:48] LABS: Alanine Aminotransferase 42 U/L (0-40); Albumin Level 3.8 g/dL (3.5-5.0); Alkaline Phosphatase 75 U/L (39-117); Aspartate Amino Transferase 39 U/L (5-37); Bilirubin Direct 0.2 mg/dL (0.0-0.5); Bilirubin Total 0.5 mg/dL (0.0-1.0)
[2022-09-20] MEDS: metroNIDAZOLE 500 MG TABLET PO ×2 (07:48→15:20)
[2022-09-20] MEDS: Multivitamin TABLET 1 TAB PO (07:48)
[2022-09-20] MEDS: amLODIPine Besylate 5 MG TABLET 25 MG PO (07:51)
[2022-09-20] MEDS: 0.9 % Sodium Chloride Flush 3 ML SYRINGE IVFLUSH ×2 (07:52→15:20)
[2022-09-20] MEDS: Finasteride 5 MG TABLET PO (07:52)
--- NOTE | 2022-09-20 09:43 | HO.PM.IMPN ---
Subjective Subjective Date of Service: 09/20/22 Interval History: seen and examined this morning follow up for colitis still reporting lower abdominal pain does not want to remain on clear liquid diet and requesting regular diet denies fever, chills Review of Systems Review of Systems: Yes all other systems are reviewed and are negative Constitutional Constitutional: Denies chills and Denies fever(s) ENT Ears, Nose, Mouth, and Throat: Denies dizziness Cardiovascular Cardiovascular: Denies chest pain, Denies palpitations and Denies dyspnea Respiratory Respiratory: Denies cough and Denies dyspnea Gastrointestinal Gastrointestinal: Reports abdominal pain, Denies nausea and Denies vomiting Neurologic Neurologic: Denies dizziness Endocrine Endocrine: Denies palpitations Physical Exam Vital Signs: Vital Signs: Last Vital Signs Temp 98.6 F 09/20/22 06:47 Pulse 73 09/20/22 06:47 Resp 18 09/20/22 06:47 BP 170/79 H 09/20/22 06:47 Pulse Ox 96 09/20/22 06:47 O2 Del Method 09/20/22 06:47 BMI result Body Mass Index 30.8 Const: General: cooperative, comfortable, alert and awake Nutritional Appearance: overweight Orientation/consciousness: patient oriented x3 Resp: Effort & Inspection: normal respiratory effort and able to speak in complete sentences Cardio: Rhythm: regular rhythm Heart sounds: S1 normal heart sound present and S2 normal heart sound present GI: Other: mild tenderness b/l lower quadrants, no guarding, no rebound Inspection: No distended Palpation (GI): Soft to palpation Neuro: General: patient oriented x3 and CN's II-XI intact bilaterally Extrem: General: Yes no pedal edema Psych: Affect: Blunted affect present Objective Data Active Medications Acetaminophen (Acetaminophen 325 Mg Tablet) 650 mg PO Q6H PRN PRN Reason: Pain, Mild (Pain Scale 1-3) Last Admin: 09/18/22 19:53 Dose: 650 mg Documented By: JBLM Albuterol Sulfate (Albuterol Sulfate 90 Mcg 8 Gm Inhaler) 1 puff INHALE Q6H PRN PRN Reason: Wheezing Amlodipine Besylate (Amlodipine Besylate 2.5 Mg Tablet) 2.5 mg PO DAILY [facility]; Protocol Artificial Tears (Artificial Tears 15 Ml Drops) 1 drop EYE-BOTH Q1H PRN PRN Reason: Dry Eyes Docusate Sodium (Docusate Sodium 100 Mg Capsule) 100 mg PO DAILY PRN PRN Reason: Constipation Finasteride (Finasteride 5 Mg Tablet) 5 mg PO DAILY [facility] Last Admin: 09/20/22 07:52 Dose: 5 mg Documented By: WARNER Folic Acid (Folic Acid 1 Mg Tablet) 1 mg PO DAILY [facility] Last Admin: 09/20/22 07:44 Dose: 1 mg Documented By: WARNER Gabapentin (Gabapentin 400 Mg Capsule) 400 mg PO TID [facility] Last Admin: 09/20/22 07:45 Dose: 400 mg Documented By: WARNER Ceftriaxone Sodium 1 gm/ (Sodium Chloride) 50 mls @ 100 mls/hr IV Q24H [facility] Sodium Chloride (Ns) 1,000 mls @ 100 mls/hr IVCONT .Q10H [facility] Lamotrigine (Lamotrigine 100 Mg Tablet) 200 mg PO BID [facility] Last Admin: 09/20/22 07:46 Dose: 200 mg Documented By: WARNER Latanoprost (Latanoprost 0.005 % Ophth No 2.5 Ml Drops) 1 drop EYE-BOTH BEDTIME [facility] Last Admin: 09/19/22 19:30 Dose: 1 drop Documented By: TRAY Lidocaine (Lidocaine 4 % Patch Adh..Patch) 1 patch TRANSDERMA Q12H PRN PRN Reason: Pain Lisinopril (Lisinopril 20 Mg Tablet) 20 mg PO DAILY [facility]; Protocol Last Admin: 09/20/22 07:45 Dose: 20 mg Documented By: WARNER Lorazepam (Lorazepam 0.5 Mg Tablet) 0.5 mg PO Q6H PRN PRN Reason: Anxiety Last Admin: 09/19/22 23:32 Dose: 0.5 mg Documented By: TRAY Metronidazole (Metronidazole 500 Mg Tablet) 500 mg PO Q8H [facility] Last Admin: 09/20/22 07:48 Dose: 500 mg Documented By: WARNER Multivitamins/Vitamin C (Multivitamin Tablet) 1 tab PO DAILY [facility] Last Admin: 09/20/22 07:48 Dose: 1 tab Documented By: WARNER Nortriptyline HCl (Nortriptyline Hcl 25 Mg Capsule) 50 mg PO BEDTIME [facility] Last Admin: 09/19/22 19:32 Dose: 50 mg Documented By: TRAY Omeprazole (Omeprazole 20 Mg Capsule.) 20 mg PO BID@0630,1630 [facility] Last Admin: 09/20/22 05:20 Dose: 20 mg Documented By: TRAY Ondansetron HCl (Ondansetron Hcl 4 Mg/2 Ml Vial) 4 mg IVPUSH Q8H PRN PRN Reason: Nausea and Vomiting Oxybutynin Chloride (Oxybutynin Chloride Er 5 Mg Tab.Er.24) 10 mg PO DAILY [facility] Last Admin: 09/20/22 07:49 Dose: 10 mg Documented By: WARNER Pharmacy Consult (Consult Rx Etoh Phenob Im/Po) 1 each MISCELLANE ONCE PRN; Protocol PRN Reason: Consult order Phenobarbital (Phenobarbital 30 Mg Tablet) 30 mg PO BID [facility]; Protocol Stop: 09/22/22 09:01 Phenobarbital (Phenobarbital 30 Mg Tablet) 30 mg PO DAILY [facility]; Protocol Stop: 09/24/22 09:01 Pramipexole Dihydrochloride (Pramipexole Di-Hcl 0.25 Mg Tablet) 0.25 mg PO TID [facility] Last Admin: 09/20/22 07:44 Dose: 0.25 mg Documented By: WARNER Quetiapine Fumarate (Quetiapine Fumarate 25 Mg Tablet) 25 mg PO DAILY [facility] Last Admin: 09/20/22 07:44 Dose: 25 mg Documented By: WARNER Quetiapine Fumarate (Quetiapine Fumarate 50 Mg Tablet) 50 mg PO DAILY@1200 [facility] Last Admin: 09/19/22 11:37 Dose: 50 mg Documented By: MARK Quetiapine Fumarate (Quetiapine Fumarate 100 Mg Tablet) 100 mg PO BEDTIME [facility] Last Admin: 09/19/22 19:33 Dose: 100 mg Documented By: TRAY Sodium Biphosphate/Sodium Phosphate (Sodium Phosphate,[place]-Dibasic 133 Ml Enema) 133 ml [place] ONCE PRN PRN Reason: Pre-Op Surgical Prep Last Admin: 09/18/22 14:42 Dose: 133 ml Documented By: LOREE Sodium Chloride (0.9 % Sodium Chloride Flush 3 Ml Syringe) 3 ml IVFLUSH QSHIFT [facility] Last Admin: 09/20/22 07:52 Dose: 3 ml Documented By: WARNER Tamsulosin HCl (Tamsulosin Hcl 0.4 Mg Capsule) 0.4 mg PO DAILY@1730 [facility] Last Admin: 09/19/22 18:11 Dose: 0.4 mg Documented By: MARK Thiamine HCl (Thiamine Hcl 100 Mg Tablet) 100 mg PO DAILY [facility] Last Admin: 09/20/22 07:45 Dose: 100 mg Documented By: WARNER Trazodone HCl (Trazodone Hcl 50 Mg Tablet) 150 mg PO BEDTIME PRN PRN Reason: Sleep Trazodone HCl (Trazodone Hcl 50 Mg Tablet) 150 mg PO BEDTIME [facility] Last Admin: 09/19/22 23:32 Dose: 150 mg Documented By: TRAY Comments: pt refused to take it at 2100 and prefer to take it laterof the night Vitamin D (Cholecalciferol (Vitamin D3) 10 Mcg Tablet) 10 mcg PO DAILY [facility] Last Admin: 09/20/22 07:47 Dose: 10 mcg Documented By: WANRER Labs CBC & Chem 7: 09/19/22 05:10 09/20/22 05:44 Labs: Laboratory Results - last 24 hr 09/20/22 05:44 Anion Gap 16 Estim Creat Clear Calc 98.7 Estimated GFR > 60 Random Glucose 98 Calcium 9.0 Total Bilirubin 0.5 Direct Bilirubin 0.2 AST 39 H ALT 42 H Alkaline Phosphatase 75 Total Protein 6.0 L Albumin 3.8 Microbiology Microbiology Results: Microbiology 09/17/22 17:26 Blood Culture - Preliminary Blood - Venous No growth after 48 hours. 09/17/22 17:17 Blood Culture - Preliminary Blood - Venous No growth after 48 hours. 09/17/22 20:41 Urine Culture - Final Urine clean catch - Urine munoz top Assessment and Plan (1) Bright red blood per rectum: Status: Acute (2) Acute colitis: Status: Acute Plan 67-year-old male with past medical history of TBI, among others presents to the hospital for evaluation of blood in stool Acute colitis/Bright red blood per rectum. no bleeding noted overnight seen by GI, s/p flexible sigmoidoscopy 09/18 - finding suggestive of ischemic colitis Continue antibiotics, ceftriaxone and flagyl. H/H stable requesting to advance diet Acute kidney injury, pre renal Improving with IV fluids. Monitor urine output and creatinine Hyperkalemia secondary to ADORE. 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 SCDs in the setting of bleed Full code attending - dr. auguste Requires ongoing inpatient hospitalization for IV antibiotics and close monitoring of CBC in light of ongoing rectal bleeding/colitis Quality Stroke Does the patient have a stroke diagnosis?: No VTE Prior VTE?: No VTE Risk Level:: Medical - moderate - high VTE Device Contraindication: N/A - Device Ordered VTE Drug Contraindication: Treatment Not Indicated
[2022-09-20] MEDS: 0.9 % Sodium Chloride 1,000 ML 100 ML IVCONT ×2 (10:10→20:47)
[2022-09-20] MEDS: QUEtiapine Fumarate 50 MG TABLET PO (12:11)
--- NOTE | 2022-09-20 12:40 | PC.NURSE ---
Amlodipine 25mg ordered by physician PO @0900, Approved by pharmacy. 25 mg administered PO 0900 per order. Physician Ordered Q30 bp check and 1000ml 0.9 saline (100 per hr) @0930 Patient remains stable with q 1 hr bp checks . bp is 140-150 s over 70 s.
[2022-09-20] MEDS: Nortriptyline HCl 25 MG CAPSULE 50 MG PO (21:34)
[2022-09-20] MEDS: traZODone HCL 50 MG TABLET 150 MG PO (21:34)
[2022-09-20] MEDS: PHENobarbitaL 30 MG TABLET PO (21:35)
[2022-09-20] MEDS: cefTRIAXone sodium 1 GM in 0.9 % Sodium Chloride 50 ML IV (21:35)
[2022-09-20] MEDS: QUEtiapine Fumarate 100 MG TABLET PO (21:35)
[2022-09-20] MEDS: Latanoprost 0.005 % Ophth Sol 2.5 ML DROPS 1 DROP EYE-BOTH (21:53)
[2022-09-21] VITALS (7 sets, daily range): BP systolic 140–184; BP diastolic 74–87; PULSE 63–83; RESP 16–18; TEMP 36.2–37; O2SAT 94–99
[2022-09-21] MEDS: Acetaminophen 325 MG TABLET 650 MG PO ×2 (00:25→08:05)
[2022-09-21] MEDS: LORazepam 0.5 MG TABLET PO ×2 (00:26→22:17)
[2022-09-21] MEDS: metroNIDAZOLE 500 MG TABLET PO ×3 (00:26→15:11)
--- NOTE | 2022-09-21 03:54 | PC.NURSE ---
Addendum entered by Betty Mendoza RN 09/21/22 05:59: Pt continues to be rude and yelling at staffs, refusing med also. Original Note: Pt vitals done at 1900 and notfied, Dr. Crump said to continue present IVF and to do Vitals at MN, meds taken at 2130 as requested, slept after. At 12mn, [employer] attempted to take vitals but pt refused and became verbally abusive and mean to staff. Dr. Crump was notiifed.
[2022-09-21] MEDS: 0.9 % Sodium Chloride 1,000 ML 100 ML IVCONT (05:41)
[2022-09-21] MEDS: Folic Acid 1 MG TABLET PO (07:56)
[2022-09-21] MEDS: Multivitamin TABLET 1 TAB PO (07:56)
[2022-09-21] MEDS: lamoTRIgine 100 MG TABLET 200 MG PO ×2 (07:56→21:58)
[2022-09-21] MEDS: QUEtiapine Fumarate 25 MG TABLET PO (07:56)
[2022-09-21] MEDS: Thiamine HCL 100 MG TABLET PO (07:56)
[2022-09-21] MEDS: Gabapentin 400 MG CAPSULE PO ×3 (07:56→21:57)
[2022-09-21] MEDS: PHENobarbitaL 30 MG TABLET PO ×2 (07:57→21:59)
[2022-09-21] MEDS: Pramipexole Di-HCL 0.25 MG TABLET PO ×3 (07:58→21:57)
[2022-09-21] MEDS: Cholecalciferol (Vitamin D3) 10 MCG TABLET PO (07:58)
[2022-09-21] MEDS: Docusate Sodium 100 MG CAPSULE PO (08:05)
[2022-09-21] MEDS: 0.9 % Sodium Chloride Flush 3 ML SYRINGE IVFLUSH ×3 (08:06→22:04)
--- NOTE | 2022-09-21 09:56 | HO.PM.IMPN ---
Subjective Subjective Date of Service: 09/21/22 Interval History: seen and examined this morning follow up for colitis, etoh withdrawal - did not pass any blood overnight blood pressure stable overnight, elevated this am no abdominal pain or nausea, tolerating diet Review of Systems Review of Systems: Yes all other systems are reviewed and are negative Constitutional Constitutional: Denies chills and Denies fever(s) Cardiovascular Cardiovascular: Denies chest pain, Denies palpitations and Reports dyspnea (chronic sob according to patient) Respiratory Respiratory: Denies cough and Reports dyspnea (chronic sob according to patient) Gastrointestinal Gastrointestinal: Denies abdominal pain, Denies nausea and Denies vomiting Endocrine Endocrine: Denies palpitations Physical Exam Vital Signs: Vital Signs: Last Vital Signs Temp 97.1 F 09/21/22 07:25 Pulse 66 09/21/22 07:25 Resp 18 09/21/22 07:25 BP 184/86 H 09/21/22 07:25 Pulse Ox 99 09/21/22 07:25 O2 Del Method 09/21/22 07:25 BMI result Body Mass Index 30.8 Const: General: cooperative, comfortable, no acute distress, alert and awake Nutritional Appearance: overweight Orientation/consciousness: patient oriented x3 Resp: Effort & Inspection: normal respiratory effort, able to speak in complete sentences and decreased respiratory effort Auscultation: diminished lung sounds Cardio: Rate: regular rate Rhythm: regular rhythm Heart sounds: S1 normal heart sound present and S2 normal heart sound present GI: Inspection: No distended Palpation (GI): Soft to palpation and nontender Neuro: Other: no focal deficits appreciated General: patient oriented x3 Extrem: General: Yes no pedal edema Psych: Affect: Blunted affect present Objective Data Active Medications Acetaminophen (Acetaminophen 325 Mg Tablet) 650 mg PO Q6H PRN PRN Reason: Pain, Mild (Pain Scale 1-3) Last Admin: 09/21/22 08:05 Dose: 650 mg Documented By: ORESTES Albuterol Sulfate (Albuterol Sulfate 90 Mcg 8 Gm Inhaler) 1 puff INHALE Q6H PRN PRN Reason: Wheezing Artificial Tears (Artificial Tears 15 Ml Drops) 1 drop EYE-BOTH Q1H PRN PRN Reason: Dry Eyes Docusate Sodium (Docusate Sodium 100 Mg Capsule) 100 mg PO DAILY PRN PRN Reason: Constipation Last Admin: 09/21/22 08:05 Dose: 100 mg Documented By: ORESTES Finasteride (Finasteride 5 Mg Tablet) 5 mg PO DAILY [facility] Last Admin: 09/20/22 07:52 Dose: 5 mg Documented By: WARNER Folic Acid (Folic Acid 1 Mg Tablet) 1 mg PO DAILY [facility] Last Admin: 09/21/22 07:56 Dose: 1 mg Documented By: ORESTES Gabapentin (Gabapentin 400 Mg Capsule) 400 mg PO TID [facility] Last Admin: 09/21/22 07:56 Dose: 400 mg Documented By: ORESTES Ceftriaxone Sodium 1 gm/ (Sodium Chloride) 50 mls @ 100 mls/hr IV Q24H [facility] Last Infusion: 09/20/22 22:59 Dose: 0 mls/hr Documented By: TRAY Lamotrigine (Lamotrigine 100 Mg Tablet) 200 mg PO BID [facility] Last Admin: 09/21/22 07:56 Dose: 200 mg Documented By: ORESTES Latanoprost (Latanoprost 0.005 % Ophth No 2.5 Ml Drops) 1 drop EYE-BOTH BEDTIME [facility] Last Admin: 09/20/22 21:53 Dose: 1 drop Documented By: TRAY Lidocaine (Lidocaine 4 % Patch Adh..Patch) 1 patch TRANSDERMA Q12H PRN PRN Reason: Pain Lisinopril (Lisinopril 20 Mg Tablet) 20 mg PO DAILY [facility]; Protocol Lorazepam (Lorazepam 0.5 Mg Tablet) 0.5 mg PO Q6H PRN PRN Reason: Anxiety Last Admin: 09/21/22 00:26 Dose: 0.5 mg Documented By: TRAY Metronidazole (Metronidazole 500 Mg Tablet) 500 mg PO Q8H [facility] Last Admin: 09/21/22 07:56 Dose: 500 mg Documented By: ORESTES Multivitamins/Vitamin C (Multivitamin Tablet) 1 tab PO DAILY [facility] Last Admin: 09/21/22 07:56 Dose: 1 tab Documented By: ORESTES Nortriptyline HCl (Nortriptyline Hcl 25 Mg Capsule) 50 mg PO BEDTIME [facility] Last Admin: 09/20/22 21:34 Dose: 50 mg Documented By: TRAY Omeprazole (Omeprazole 20 Mg Capsule.Dr) 20 mg PO BID@0630,1630 [facility] Last Admin: 09/21/22 05:40 Dose: Not Given Documented By: TRAY Non-Admin Reason: Patient Refused Ondansetron HCl (Ondansetron Hcl 4 Mg/2 Ml Vial) 4 mg IVPUSH Q8H PRN PRN Reason: Nausea and Vomiting Oxybutynin Chloride (Oxybutynin Chloride Er 5 Mg Tab.Er.24) 10 mg PO DAILY [facility] Last Admin: 09/21/22 07:58 Dose: 10 mg Documented By: ORESTES Pharmacy Consult (Consult Rx Etoh Phenob Im/Po) 1 each MISCELLANE ONCE PRN; Protocol PRN Reason: Consult order Phenobarbital (Phenobarbital 30 Mg Tablet) 30 mg PO BID [facility]; Protocol Stop: 09/22/22 09:01 Last Admin: 09/21/22 07:57 Dose: 30 mg Documented By: ORESTES Phenobarbital (Phenobarbital 30 Mg Tablet) 30 mg PO DAILY [facility]; Protocol Stop: 09/24/22 09:01 Pramipexole Dihydrochloride (Pramipexole Di-Hcl 0.25 Mg Tablet) 0.25 mg PO TID [facility] Last Admin: 09/21/22 07:58 Dose: 0.25 mg Documented By: ORESTES Quetiapine Fumarate (Quetiapine Fumarate 25 Mg Tablet) 25 mg PO DAILY [facility] Last Admin: 09/21/22 07:56 Dose: 25 mg Documented By: ORESTES Quetiapine Fumarate (Quetiapine Fumarate 50 Mg Tablet) 50 mg PO DAILY@1200 [facility] Last Admin: 09/20/22 12:11 Dose: 50 mg Documented By: WARNER Quetiapine Fumarate (Quetiapine Fumarate 100 Mg Tablet) 100 mg PO BEDTIME [facility] Last Admin: 09/20/22 21:35 Dose: 100 mg Documented By: TRAY Sodium Biphosphate/Sodium Phosphate (Sodium Phosphate,[place]-Dibasic 133 Ml Enema) 133 ml [place] ONCE PRN PRN Reason: Pre-Op Surgical Prep Last Admin: 09/18/22 14:42 Dose: 133 ml Documented By: LOREE Sodium Chloride (0.9 % Sodium Chloride Flush 3 Ml Syringe) 3 ml IVFLUSH QSHIFT [facility] Last Admin: 09/21/22 08:06 Dose: 3 ml Documented By: ORESTES Tamsulosin HCl (Tamsulosin Hcl 0.4 Mg Capsule) 0.4 mg PO DAILY@1730 [facility] Last Admin: 09/19/22 18:11 Dose: 0.4 mg Documented By: MARK Thiamine HCl (Thiamine Hcl 100 Mg Tablet) 100 mg PO DAILY [facility] Last Admin: 09/21/22 07:56 Dose: 100 mg Documented By: ORESTES Trazodone HCl (Trazodone Hcl 50 Mg Tablet) 150 mg PO BEDTIME PRN PRN Reason: Sleep Trazodone HCl (Trazodone Hcl 50 Mg Tablet) 150 mg PO BEDTIME [facility] Last Admin: 09/20/22 21:34 Dose: 150 mg Documented By: TRAY Vitamin D (Cholecalciferol (Vitamin D3) 10 Mcg Tablet) 10 mcg PO DAILY [facility] Last Admin: 09/21/22 07:58 Dose: 10 mcg Documented By: ORESTES Labs CBC & Chem 7: 09/19/22 05:10 09/20/22 05:44 Assessment and Plan (1) Bright red blood per rectum: Status: Acute (2) Alcohol abuse with withdrawal: Status: Acute (3) Acute colitis: Status: Acute Plan 67-year-old male with past medical history of TBI, among others presents to the hospital for evaluation of blood in stool Acute colitis/Bright red blood per rectum. no bleeding noted overnight. abdominal pain resolved seen by GI, s/p flexible sigmoidoscopy 09/18 - finding suggestive of ischemic colitis Continue antibiotics, ceftriaxone and flagyl day 5 H/H stable tolerating diet Essential hypertension given unintentional dose of norvasc, all other bp meds held. continue lisinopril monitor bp closely if elevated resume home dose of norvasc Acute kidney injury, pre renal Improved with IVF Hyperkalemia secondary to ADORE. resolved UTI ruled out Urine culture showed growing mixed bacterial dwaine characteristic of contamination Alcohol use disorder continue phenobarb protocol continue thiamine and folic acid supplement History of seizure disorder continue lamictal Mood disorder following TBI -continue po home medications DVT prophylaxis:? SCDs in the setting of bleed Full code attending - dr. auguste Requires ongoing inpatient hospitalization for IV antibiotics and close monitoring of CBC in light of ongoing rectal bleeding/colitis dispo - plan to return to [facility] when medically ready Quality Stroke Does the patient have a stroke diagnosis?: No VTE Prior VTE?: No VTE Risk Level:: Medical - moderate - high VTE Device Contraindication: N/A - Device Ordered VTE Drug Contraindication: Treatment Not Indicated
[2022-09-21] MEDS: lisinopriL 20 MG TABLET PO (10:38)
[2022-09-21 10:45] LABS: Hematocrit 37.4 % (42.0-52.0); Hemoglobin 12.7 g/dl (14.0-18.0); Mean Corpuscular Hemoglobin 31.8 pg (27.0-33.0); Mean Corpuscular Volume 93.5 fL (80.0-98.0); Mean Platelet Volume 9.5 fL (9.4-12.4); Platelet Count 184 X10*3/uL (160-400); Red Cell Distribution Width 11.9 % (11.0-16.0)
[2022-09-21] MEDS: QUEtiapine Fumarate 50 MG TABLET PO (12:26)
[2022-09-21] MEDS: Omeprazole 20 MG CAPSULE.DR PO (15:11)
--- NOTE | 2022-09-21 18:31 | PC.NURSE ---
Patietn had large soft loose BM, normal, no blood. Patietn noted to have wheezing and SOB with laying flat. Requesting albuterol treatment. PA aware.
[2022-09-21] MEDS: Nortriptyline HCl 25 MG CAPSULE 50 MG PO (21:57)
[2022-09-21] MEDS: traZODone HCL 50 MG TABLET 150 MG PO (21:58)
[2022-09-21] MEDS: cefTRIAXone sodium 1 GM in 0.9 % Sodium Chloride 50 ML IV (21:59)
[2022-09-21] MEDS: Latanoprost 0.005 % Ophth Sol 2.5 ML DROPS 1 DROP EYE-BOTH (22:11)
[2022-09-21] MEDS: QUEtiapine Fumarate 100 MG TABLET PO (22:18)
[2022-09-22] VITALS (8 sets, daily range): BP systolic 132–181; BP diastolic 74–87; PULSE 65–79; RESP 17–20; TEMP 36.1–36.9; O2SAT 95–98
[2022-09-22] MEDS: metroNIDAZOLE 500 MG TABLET PO ×3 (00:58→15:49)
[2022-09-22] MEDS: traZODone HCL 50 MG TABLET 150 MG PO ×2 (03:44→21:12)
--- NOTE | 2022-09-22 06:14 | MHC.HEMONCNA ---
we tried to check if he was wet and he was being combative hitting us
--- NOTE | 2022-09-22 06:57 | PC.NURSE ---
pt removed his color television console monitor at 03:00, this nurse explained to the pt the importance of keeping his color television console monitor on, but pt refused to put it back on. This nurse notified DR. Crump about the situation. This nurse explained to the MD how the pt has been normal sinus rhythm throughout the shift. The MD said it was okay for the pt to refuse the color television console monitor.
--- NOTE | 2022-09-22 07:35 | PC.NURSE ---
At 20:15 the pt made a SI comment to the NETEZZA DEVELOPER saying how wanted a gun to end his misery . This nurse went to assess the pt asking if he wanted to harm himself but said no. He did stated how he wished he was . This nurse then asked the pt if he had a plan and he stated no . The pt told this nurse that he felt sad and depress. This nurse used the [place]-suicide severity rating scale and the pt was at moderate risk at that moment. This nurse notified Dr. Crump and nursing inventory control supervisor of the situation. This nurse stayed with the pt at the bedside and had the NETEZZA DEVELOPER placed a camera in the room. Dr. Crump came to the floor to assess the pt and notified me that the pt wasn't SI and didn't need a sitter. This nurse notified the nursing inventory control supervisor of the pt's situation and how there was no need for a sitter. The ordered a psych eval for the pt. At this moment there is no SI and will continue to monitor the pt's behavior.
[2022-09-22] MEDS: Thiamine HCL 100 MG TABLET PO (08:46)
[2022-09-22] MEDS: Pramipexole Di-HCL 0.25 MG TABLET PO ×3 (08:46→21:11)
[2022-09-22] MEDS: Gabapentin 400 MG CAPSULE PO ×2 (08:46→15:48)
[2022-09-22] MEDS: Cholecalciferol (Vitamin D3) 10 MCG TABLET PO (08:47)
[2022-09-22] MEDS: amLODIPine Besylate 2.5 MG TABLET PO ×2 (08:47→13:22)
[2022-09-22] MEDS: Multivitamin TABLET 1 TAB PO (08:47)
[2022-09-22] MEDS: QUEtiapine Fumarate 25 MG TABLET PO (08:47)
[2022-09-22] MEDS: PHENobarbitaL 30 MG TABLET PO (08:47)
[2022-09-22] MEDS: lamoTRIgine 100 MG TABLET 200 MG PO ×2 (08:48→21:12)
[2022-09-22] MEDS: Finasteride 5 MG TABLET PO (08:48)
[2022-09-22] MEDS: lisinopriL 20 MG TABLET PO (08:48)
[2022-09-22] MEDS: 0.9 % Sodium Chloride Flush 3 ML SYRINGE IVFLUSH ×3 (08:49→21:12)
--- NOTE | 2022-09-22 09:16 | MHC.CM.PN ---
PER HOSPITALIST PT IS MEDICALLY CLEARED FOR D/C HOME, CM REACHED OU TO PT'S HCP/NURSE AT [facility] AT 8:40AM, TIFFANY GIVING PUSH BACK REGARDING DISCHARGE AND REPORTS SHE CAN NOT GIVE CM PT'S DDS NURSES RADHA VILLEDA'S CONTACT INFO SHE IS DRIVING HOWEVER WILL CALL AFTER CM GET'S OFF THE PHONE. CM FOUND DDS COORDINATOR ARIC JADE'S NUMBER [phone] IN NOTES FROM PREVIOUS VISIT, CM CONTACTED ARIC AT 8:50AM WHO IS ALSO GIVING PUSH BACK REGARDING PT'S DISCHARGE AND IS REQUESTING A DISCHARGE MEETING, ARIC IS AWARE RADHA CAN ACCOMMODATE A D/C MTG TODAY AND REQUESTED SHE CONTACT WHOM EVER SHE WOULD LIKE THERE AND GET BACK TO CM SOON POSSIBLE. RADHA VILLEDA: GINA RN LINE HAUL OWNER OPERATOR: MARYAN [phone] TRIM LINE WORKER: SHARON [phone]
[2022-09-22] MEDS: Folic Acid 1 MG TABLET PO (10:06)
--- NOTE | 2022-09-22 11:55 | HO.PM.IMPN ---
Subjective Subjective Date of Service: 09/22/22 Interval History: Follow up for colitis, etoh withdrawal - did not pass any blood overnight blood pressure stable overnight, elevated this am no abdominal pain or nausea, tolerating diet Review of Systems Review of Systems: Yes all other systems are reviewed and are negative Constitutional Constitutional: Denies chills and Denies fever(s) Cardiovascular Cardiovascular: Denies chest pain, Denies palpitations and Reports dyspnea (chronic sob according to patient) Respiratory Respiratory: Denies cough and Reports dyspnea (chronic sob according to patient) Gastrointestinal Gastrointestinal: Denies abdominal pain, Denies nausea and Denies vomiting Endocrine Endocrine: Denies palpitations Physical Exam Vital Signs: Vital Signs: Last Vital Signs Temp 98.2 F 09/22/22 10:00 Pulse 77 09/22/22 10:00 Resp 20 09/22/22 10:00 BP 168/81 H 09/22/22 10:00 Pulse Ox 98 09/22/22 10:00 O2 Del Method 09/22/22 10:00 BMI result Body Mass Index 30.8 Appearing in no acute distress lung sounds are clear to auscultation heart regular rate rhythm, clear S1, S2 positive bowel sounds, abdomen is soft, nontender neuro patient is alert x3, no focal deficits Objective Data Active Medications Acetaminophen (Acetaminophen 325 Mg Tablet) 650 mg PO Q6H PRN PRN Reason: Pain, Mild (Pain Scale 1-3) Last Admin: 09/21/22 08:05 Dose: 650 mg Documented By: ORESTES Albuterol Sulfate (Albuterol Sulfate 90 Mcg 8 Gm Inhaler) 1 puff INHALE Q6H PRN PRN Reason: Wheezing Amlodipine Besylate (Amlodipine Besylate 2.5 Mg Tablet) 2.5 mg PO DAILY [facility]; Protocol Last Admin: 09/22/22 08:47 Dose: 2.5 mg Documented By: RASHEEDA Artificial Tears (Artificial Tears 15 Ml Drops) 1 drop EYE-BOTH Q1H PRN PRN Reason: Dry Eyes Docusate Sodium (Docusate Sodium 100 Mg Capsule) 100 mg PO DAILY PRN PRN Reason: Constipation Last Admin: 09/21/22 08:05 Dose: 100 mg Documented By: ORESTES Finasteride (Finasteride 5 Mg Tablet) 5 mg PO DAILY [facility] Last Admin: 11/07/22 08:48 Dose: 5 mg Documented By: RASHEEDA Folic Acid (Folic Acid 1 Mg Tablet) 1 mg PO DAILY [facility] Last Admin: 09/22/22 10:06 Dose: 1 mg Documented By: RASHEEDA Gabapentin (Gabapentin 400 Mg Capsule) 400 mg PO TID [facility] Last Admin: 09/22/22 08:46 Dose: 400 mg Documented By: RASHEEDA Ceftriaxone Sodium 1 gm/ (Sodium Chloride) 50 mls @ 100 mls/hr IV Q24H [facility] Last Infusion: 09/21/22 23:03 Dose: 0 mls/hr Documented By: EDVIN Lamotrigine (Lamotrigine 100 Mg Tablet) 200 mg PO BID [facility] Last Admin: 09/22/22 08:48 Dose: 200 mg Documented By: RASHEEDA Latanoprost (Latanoprost 0.005 % Ophth No 2.5 Ml Drops) 1 drop EYE-BOTH BEDTIME [facility] Last Admin: 09/21/22 22:11 Dose: 1 drop Documented By: EDVIN Lidocaine (Lidocaine 4 % Patch Adh..Patch) 1 patch TRANSDERMA Q12H PRN PRN Reason: Pain Lisinopril (Lisinopril 20 Mg Tablet) 20 mg PO DAILY [facility]; Protocol Last Admin: 09/22/22 08:48 Dose: 20 mg Documented By: RASHEEDA Lorazepam (Lorazepam 0.5 Mg Tablet) 0.5 mg PO Q6H PRN PRN Reason: Anxiety Last Admin: 09/21/22 22:17 Dose: 0.5 mg Documented By: EDVIN Metronidazole (Metronidazole 500 Mg Tablet) 500 mg PO Q8H [facility] Last Admin: 09/22/22 08:46 Dose: 500 mg Documented By: RASHEEDA Multivitamins/Vitamin C (Multivitamin Tablet) 1 tab PO DAILY [facility] Last Admin: 09/22/22 08:47 Dose: 1 tab Documented By: RASHEEDA Nortriptyline HCl (Nortriptyline Hcl 25 Mg Capsule) 50 mg PO BEDTIME [facility] Last Admin: 09/21/22 21:57 Dose: 50 mg Documented By: EDVIN Omeprazole (Omeprazole 20 Mg Capsule.Dr) 20 mg PO BID@0630,1630 [facility] Last Admin: 09/22/22 06:38 Dose: Not Given Documented By: EDVIN Non-Admin Reason: Patient Refused Ondansetron HCl (Ondansetron Hcl 4 Mg/2 Ml Vial) 4 mg IVPUSH Q8H PRN PRN Reason: Nausea and Vomiting Oxybutynin Chloride (Oxybutynin Chloride Er 5 Mg Tab.Er.24) 10 mg PO DAILY [facility] Last Admin: 09/22/22 08:46 Dose: 10 mg Documented By: RASHEEDA Pharmacy Consult (Consult Rx Etoh Phenob Im/Po) 1 each MISCELLANE ONCE PRN; Protocol PRN Reason: Consult order Phenobarbital (Phenobarbital 30 Mg Tablet) 30 mg PO DAILY [facility]; Protocol Stop: 09/24/22 09:01 Pramipexole Dihydrochloride (Pramipexole Di-Hcl 0.25 Mg Tablet) 0.25 mg PO TID [facility] Last Admin: 09/22/22 08:46 Dose: 0.25 mg Documented By: RASHEEDA Quetiapine Fumarate (Quetiapine Fumarate 25 Mg Tablet) 25 mg PO DAILY [facility] Last Admin: 09/22/22 08:47 Dose: 25 mg Documented By: RASHEEDA Quetiapine Fumarate (Quetiapine Fumarate 50 Mg Tablet) 50 mg PO DAILY@1200 [facility] Last Admin: 09/21/22 12:26 Dose: 50 mg Documented By: ORESTES Quetiapine Fumarate (Quetiapine Fumarate 100 Mg Tablet) 100 mg PO BEDTIME [facility] Last Admin: 09/21/22 22:18 Dose: 100 mg Documented By: EDVIN Sodium Biphosphate/Sodium Phosphate (Sodium Phosphate,Frio-Dibasic 133 Ml Enema) 133 ml [place] ONCE PRN PRN Reason: Pre-Op Surgical Prep Last Admin: 09/18/22 14:42 Dose: 133 ml Documented By: LOREE Sodium Chloride (0.9 % Sodium Chloride Flush 3 Ml Syringe) 3 ml IVFLUSH QSHIFT [facility] Last Admin: 09/22/22 08:49 Dose: 3 ml Documented By: RASHEEDA Tamsulosin HCl (Tamsulosin Hcl 0.4 Mg Capsule) 0.4 mg PO DAILY@1730 [facility] Last Admin: 09/19/22 18:11 Dose: 0.4 mg Documented By: MARK Thiamine HCl (Thiamine Hcl 100 Mg Tablet) 100 mg PO DAILY [facility] Last Admin: 09/22/22 08:46 Dose: 100 mg Documented By: RASHEEDA Trazodone HCl (Trazodone Hcl 50 Mg Tablet) 150 mg PO BEDTIME PRN PRN Reason: Sleep Last Admin: 09/22/22 03:44 Dose: 150 mg Documented By: EDVIN Comments: pt unable to sleep Trazodone HCl (Trazodone Hcl 50 Mg Tablet) 150 mg PO BEDTIME [facility] Last Admin: 09/21/22 21:58 Dose: 150 mg Documented By: EDVIN Vitamin D (Cholecalciferol (Vitamin D3) 10 Mcg Tablet) 10 mcg PO DAILY [facility] Last Admin: 09/22/22 08:47 Dose: 10 mcg Documented By: RASHEEDA Labs CBC & Chem 7: 09/21/22 10:28 09/20/22 05:44 Assessment and Plan (1) Bright red blood per rectum: Status: Acute (2) Alcohol abuse with withdrawal: Status: Acute (3) Acute colitis: Status: Acute Plan 67-year-old male with past medical history of TBI, among others presents to the hospital for evaluation of blood in stool Acute colitis/Bright red blood per rectum. no bleeding noted overnight. abdominal pain resolved seen by GI, s/p flexible sigmoidoscopy 09/18 - finding suggestive of ischemic colitis ceftriaxone and flagyl total 10 days tx, switch to po ceftin and continue po flagyl H/H stable tolerating diet Essential hypertension Amlodipine increased to 5mg daily continue lisinopril Acute kidney injury, pre renal Improved with IVF Hyperkalemia secondary to ADORE. 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 SCDs in the setting of bleed Full code attending - dr. Grider Requires ongoing inpatient hospitalization for IV antibiotics and close monitoring of CBC in light of ongoing rectal bleeding/colitis dispo - plan to return to [facility] when medically ready Quality Stroke Does the patient have a stroke diagnosis?: No VTE Prior VTE?: No VTE Risk Level:: Medical - moderate - high VTE Device Contraindication: N/A - Device Ordered VTE Drug Contraindication: Treatment Not Indicated
[2022-09-22] MEDS: QUEtiapine Fumarate 50 MG TABLET PO (13:22)
[2022-09-22] MEDS: Omeprazole 20 MG CAPSULE.DR PO (15:48)
--- NOTE | 2022-09-22 16:34 | MHC.CM.PN ---
CM ATTENDED ZOOM DISCHARGE MTG VIA TELEPHONE W/DDS AND GH MANAGEMENT PRESENT WELL ADDITIONAL [facility] CM, DDS AND GH VOICED MANY CONCERNS REGARDING PT'S DRINKING THAT HAS BEEN INCREASING, PER DISCUSSION CM HAS REQUESTED RECOVERY TEAM CONSULT, RECEOVERY SPECIALIST WHO WILL MEET W/PT THIS EVENING AND WHEN SOCIAL STUDIES DEPARTMENT CHAIR COMES BACK TOMORROW SHE WILL MAKE AN APPT W/A PHLEBOTOMIST LAB ASSISTANT THROUGH [employer]. PER HOSPITALIST PT'S BP HAS BEEN ELEVATED AND AMLODIPINE INCREASED FROM 2.5MG TO 5MG DAILY. RADHA SPOKE W/ZAHRAA SUPERVISOR OF RESEARCH/SALES SUPPORT REP [phone] WHO PLANS ON COMING UP W/PLAN AND REVIEWING PLAN W/STAFF AND SET UP ANTIC D/C TIME OF TOMORROW 09/23 AT 1PM. CM WILL CONT TO FOLLOW D/C NEEDS.
[2022-09-22] MEDS: QUEtiapine Fumarate 100 MG TABLET PO (21:11)
[2022-09-22] MEDS: Nortriptyline HCl 25 MG CAPSULE 50 MG PO (21:11)
[2022-09-22] MEDS: Latanoprost 0.005 % Ophth Sol 2.5 ML DROPS 1 DROP EYE-BOTH (21:13)
[2022-09-23] MEDS: metroNIDAZOLE 500 MG TABLET PO ×4 (00:11→23:52)
[2022-09-23] MEDS: Omeprazole 20 MG CAPSULE.DR PO ×2 (05:11→17:41)
[2022-09-23 08:00] VITALS: BP 193/93; PULSE 74; RESP 18; TEMP 36.4; O2SAT 99
[2022-09-23] MEDS: lisinopriL 20 MG TABLET PO (09:18)
[2022-09-23] MEDS: Pramipexole Di-HCL 0.25 MG TABLET PO ×3 (09:18→21:54)
[2022-09-23] MEDS: Folic Acid 1 MG TABLET PO (09:18)
[2022-09-23] MEDS: QUEtiapine Fumarate 25 MG TABLET PO (09:18)
[2022-09-23] MEDS: lamoTRIgine 100 MG TABLET 200 MG PO ×2 (09:19→21:16)
[2022-09-23] MEDS: Multivitamin TABLET 1 TAB PO (09:19)
[2022-09-23] MEDS: Cholecalciferol (Vitamin D3) 10 MCG TABLET PO (09:19)
[2022-09-23] MEDS: PHENobarbitaL 30 MG TABLET PO (09:19)
[2022-09-23] MEDS: Finasteride 5 MG TABLET PO (09:20)
[2022-09-23] MEDS: amLODIPine Besylate 2.5 MG TABLET PO ×2 (09:20→10:49)
[2022-09-23] MEDS: Gabapentin 400 MG CAPSULE PO ×3 (09:20→21:15)
[2022-09-23] MEDS: 0.9 % Sodium Chloride Flush 3 ML SYRINGE IVFLUSH ×3 (09:20→21:54)
[2022-09-23] MEDS: Thiamine HCL 100 MG TABLET PO (09:20)
--- NOTE | 2022-09-23 09:21 | MHC.RECOVRN ---
Late entry: Pt was seen on Wednesday 09/19, after consult placed to Addiction Medicine. Pt laying in bed, awake, alert, easily engages in conversation. Pt reports drinking 4-5 vodka doubles approximately 4 times weekly. Pt is currently living in a alf in [place]. Has been living in group homes since 2006 after pt had fallen down stairs and acquired a TBI. Pt reports about 4 times weekly going with a couple guys to a restaurant in [place] where pt and friends have drinks. Pt does report also drinking in the home. Pt reports being lonely in alf as other housemates are nonverbal. 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 Pt has had one brief period of time around 2012 when pt was able to abstain. Pt has not found anything to be helpful in maintaining recovery, including AA. Pt reports having grown up in this area, moved to [place] for school, graduated with a masters in economics. Pt has one son who is 27 and lives in [place]. Pt had been , ended in divorce due to patient's drinking. Pt is looking to abstain from alcohol, states nothing good ever comes out of drinking. Pt provided with and educated regarding recovery resources and supports. Pt is interested in debt recovery officer, referral has been placed. Pt denies other questions or conerns at this time. Discussed with CM as well as Angelica Reynoso APRN.
--- NOTE | 2022-09-23 09:47 | MHC.CM.PN ---
PLAN WAS FOR PT TO D/C HOME LATER TODAY HOWEVER PT'S BP ELEVATED AT 193/93, PER HOSPITALIST PT'S BP MEDS WILL BE REVIEWED AND ADJUSTED AND PTS D/C WILL BE HELD UNTIL TOMORROW 09/24. PT WILL ALSO NEED TO BE CLEARED BY PSYCH/CARE TEAM AND HOSPITALIST AWARE. RADHA CONTACTED PT'S GH TANK BUILDER HELPER JOSÉ [phone] CONTACTED AT 9:45AM AND UPDATED ON PLAN. ANTIC D/C TOMORROW 09/24 W/MADIE ESCALANTE DETECTOR CAR OPERATOR AND [facility] OF [facility] FOR BLS TRANSPORT.
[2022-09-23] MEDS: Artificial Tears 15 ML DROPS 1 DROP EYE-BOTH (10:49)
[2022-09-23] MEDS: QUEtiapine Fumarate 50 MG TABLET PO (10:49)
[2022-09-23] MEDS: hydrALAZINE HCl 25 MG TABLET PO ×3 (10:49→21:16)
--- NOTE | 2022-09-23 10:50 | P.PNIM_ITS ---
Subjective Subjective Date of Service: 09/23/22 Interval History: Follow up for colitis, etoh withdrawal - did not pass any blood overnight blood pressure stable overnight, elevated this am no abdominal pain or nausea, tolerating diet Review of Systems Review of Systems: Yes all other systems are reviewed and are negative Constitutional Constitutional: Denies chills and Denies fever(s) Cardiovascular Cardiovascular: Denies chest pain, Denies palpitations and Reports dyspnea (chronic sob according to patient) Respiratory Respiratory: Denies cough and Reports dyspnea (chronic sob according to patient) Gastrointestinal Gastrointestinal: Denies abdominal pain, Denies nausea and Denies vomiting Endocrine Endocrine: Denies palpitations Physical Exam Vital Signs: Vital Signs: Last Vital Signs Temp 97.6 F 09/23/22 08:00 Pulse 74 09/23/22 08:00 Resp 18 09/23/22 08:00 BP 193/93 H 09/23/22 08:00 Pulse Ox 99 09/23/22 08:00 O2 Del Method 09/23/22 08:00 BMI result Body Mass Index 30.8 Appearing in no acute distress lung sounds are clear to auscultation heart regular rate rhythm, clear S1, S2 positive bowel sounds, abdomen is soft, nontender neuro patient is alert x3, no focal deficits Objective Data Active Medications Acetaminophen (Acetaminophen 325 Mg Tablet) 650 mg PO Q6H PRN PRN Reason: Pain, Mild (Pain Scale 1-3) Last Admin: 09/21/22 08:05 Dose: 650 mg Documented By: ORESTES Albuterol Sulfate (Albuterol Sulfate 90 Mcg 8 Gm Inhaler) 1 puff INHALE Q6H PRN PRN Reason: Wheezing Amlodipine Besylate (Amlodipine Besylate 5 Mg Tablet) 5 mg PO DAILY [facility]; Protocol Artificial Tears (Artificial Tears 15 Ml Drops) 1 drop EYE-BOTH Q1H PRN PRN Reason: Dry Eyes Last Admin: 09/23/22 10:49 Dose: 1 drop Documented By: AMANDEEP Cefuroxime Axetil (Cefuroxime Axetil 500 Mg Tablet) 500 mg PO Q12H TAZ Last Admin: 09/23/22 05:12 Dose: 500 mg Documented By: LIGIAORALParrish Docusate Sodium (Docusate Sodium 100 Mg Capsule) 100 mg PO DAILY PRN PRN Reason: Constipation Last Admin: 09/21/22 08:05 Dose: 100 mg Documented By: ORESTES Finasteride (Finasteride 5 Mg Tablet) 5 mg PO DAILY [facility] Last Admin: 09/23/22 09:20 Dose: 5 mg Documented By: AMANDEEP Folic Acid (Folic Acid 1 Mg Tablet) 1 mg PO DAILY [facility] Last Admin: 09/23/22 09:18 Dose: 1 mg Documented By: AMANDEEP Gabapentin (Gabapentin 400 Mg Capsule) 400 mg PO TID [facility] Last Admin: 09/23/22 09:20 Dose: 400 mg Documented By: AMANDEEP Hydralazine HCl (Hydralazine Hcl 25 Mg Tablet) 25 mg PO TID [facility]; Protocol Last Admin: 09/23/22 10:49 Dose: 25 mg Documented By: AMANDEEP Lamotrigine (Lamotrigine 100 Mg Tablet) 200 mg PO BID [facility] Last Admin: 09/23/22 09:19 Dose: 200 mg Documented By: AMANDEEP Latanoprost (Latanoprost 0.005 % Ophth No 2.5 Ml Drops) 1 drop EYE-BOTH BEDTIME [facility] Last Admin: 09/22/22 21:13 Dose: 1 drop Documented By: EPI Lidocaine (Lidocaine 4 % Patch Adh..Patch) 1 patch TRANSDERMA Q12H PRN PRN Reason: Pain Lisinopril (Lisinopril 20 Mg Tablet) 20 mg PO DAILY [facility]; Protocol Last Admin: 09/23/22 09:18 Dose: 20 mg Documented By: AMANDEEP Metronidazole (Metronidazole 500 Mg Tablet) 500 mg PO Q8H [facility] Last Admin: 09/23/22 09:18 Dose: 500 mg Documented By: AMANDEEP Multivitamins/Vitamin C (Multivitamin Tablet) 1 tab PO DAILY [facility] Last Admin: 09/23/22 09:19 Dose: 1 tab Documented By: AMANDEEP Nortriptyline HCl (Nortriptyline Hcl 25 Mg Capsule) 50 mg PO BEDTIME [facility] Last Admin: 09/22/22 21:11 Dose: 50 mg Documented By: EPI Omeprazole (Omeprazole 20 Mg Capsule.Dr) 20 mg PO BID@0630,1630 [facility] Last Admin: 09/23/22 05:11 Dose: 20 mg Documented By: EPI Ondansetron HCl (Ondansetron Hcl 4 Mg/2 Ml Vial) 4 mg IVPUSH Q8H PRN PRN Reason: Nausea and Vomiting Oxybutynin Chloride (Oxybutynin Chloride Er 5 Mg Tab.Er.24) 10 mg PO DAILY [facility] Last Admin: 09/23/22 09:19 Dose: 10 mg Documented By: AMANDEEP Pharmacy Consult (Consult Rx Etoh Phenob Im/Po) 1 each MISCELLANE ONCE PRN; Protocol PRN Reason: Consult order Phenobarbital (Phenobarbital 30 Mg Tablet) 30 mg PO DAILY [facility]; Protocol Stop: 09/24/22 09:01 Last Admin: 09/23/22 09:19 Dose: 30 mg Documented By: AMANDEEP Pramipexole Dihydrochloride (Pramipexole Di-Hcl 0.25 Mg Tablet) 0.25 mg PO TID [facility] Last Admin: 09/23/22 09:18 Dose: 0.25 mg Documented By: AMANDEEP Quetiapine Fumarate (Quetiapine Fumarate 25 Mg Tablet) 25 mg PO DAILY [facility] Last Admin: 09/23/22 09:18 Dose: 25 mg Documented By: AMANDEEP Quetiapine Fumarate (Quetiapine Fumarate 50 Mg Tablet) 50 mg PO DAILY@1200 [facility] Last Admin: 09/23/22 10:49 Dose: 50 mg Documented By: AMANDEEP Quetiapine Fumarate (Quetiapine Fumarate 100 Mg Tablet) 100 mg PO BEDTIME [facility] Last Admin: 09/22/22 21:11 Dose: 100 mg Documented By: EPI Sodium Biphosphate/Sodium Phosphate (Sodium Phosphate,[place]-Dibasic 133 Ml Enema) 133 ml NM ONCE PRN PRN Reason: Pre-Op Surgical Prep Last Admin: 09/18/22 14:42 Dose: 133 ml Documented By: LOREE Sodium Chloride (0.9 % Sodium Chloride Flush 3 Ml Syringe) 3 ml IVFLUSH QSHIFT [facility] Last Admin: 09/23/22 09:20 Dose: 3 ml Documented By: AMANDEEP Tamsulosin HCl (Tamsulosin Hcl 0.4 Mg Capsule) 0.4 mg PO DAILY@1730 [facility] Last Admin: 09/19/22 18:11 Dose: 0.4 mg Documented By: MARK Thiamine HCl (Thiamine Hcl 100 Mg Tablet) 100 mg PO DAILY [facility] Last Admin: 09/23/22 09:20 Dose: 100 mg Documented By: AMANDEEP Trazodone HCl (Trazodone Hcl 50 Mg Tablet) 150 mg PO BEDTIME PRN PRN Reason: Sleep Last Admin: 09/22/22 03:44 Dose: 150 mg Documented By: EDVIN Comments: pt unable to sleep Trazodone HCl (Trazodone Hcl 50 Mg Tablet) 150 mg PO BEDTIME [facility] Last Admin: 09/22/22 21:12 Dose: 150 mg Documented By: EPI Vitamin D (Cholecalciferol (Vitamin D3) 10 Mcg Tablet) 10 mcg PO DAILY [facility] Last Admin: 09/23/22 09:19 Dose: 10 mcg Documented By: AMANDEEP Labs CBC & Chem 7: 09/21/22 10:28 09/20/22 05:44 Microbiology Microbiology Results: Microbiology 09/17/22 17:26 Blood Culture - Final Blood - Venous No growth after 5 days. 09/17/22 17:17 Blood Culture - Final Blood - Venous No growth after 5 days. Assessment and Plan (1) Bright red blood per rectum: Status: Acute (2) Alcohol abuse with withdrawal: Status: Acute (3) Acute colitis: Status: Acute Plan 67-year-old male with past medical history of TBI, among others presents to the hospital for evaluation of blood in stool Acute colitis/Bright red blood per rectum. no bleeding noted overnight. abdominal pain resolved seen by GI, s/p flexible sigmoidoscopy 09/18 - finding suggestive of ischemic colitis ceftriaxone and flagyl total 10 days tx, switch to po ceftin and continue po flagyl H/H stable tolerating diet Essential hypertension with elevated blood pressure readings Amlodipine increased to 5mg daily continue lisinopril hydralazine added TID Acute kidney injury, pre renal Improved with IVF Hyperkalemia secondary to ADORE. 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 SCDs in the setting of bleed Full code attending - dr. Grider Requires ongoing inpatient hospitalization for IV antibiotics and close monitoring of CBC in light of ongoing rectal bleeding/colitis dispo - plan to return to [facility] when medically ready Quality Stroke Does the patient have a stroke diagnosis?: No VTE Prior VTE?: No VTE Risk Level:: Medical - moderate - high VTE Device Contraindication: N/A - Device Ordered VTE Drug Contraindication: Treatment Not Indicated
[2022-09-23 11:39] VITALS: BP 159/75; PULSE 74; RESP 18; TEMP 36.5; O2SAT 93
--- NOTE | 2022-09-23 13:08 | PM.EVENT ---
Event Note Date of Service: 09/23/22 Event Note: Addiction consult Please see Recovery Support RN notes.
--- NOTE | 2022-09-23 13:50 | MHC.RECOVRN ---
Met with pt to follow up regarding recovery resources and support. Pt laying in bed, awake, alert, easily engages in conversation. Pt did not recall meeting with t/w last week, reminded pt of what we spoke about. Pt feeling depressed regarding continued stay in the hospital as well as [facility] the [facility]. Pt did report drinking up to a pint of vodka daily, different than what pt previously reported. Product Support Manager met with pt last night, pt reports this was helpful and would like to have a cricket coach check in again this evening. Discussed and educated pt regarding medications for AUD, pt apprehensive and would like to continue to think about it. Pt denies other questions or concerns at this time.
[2022-09-23] MEDS: LORazepam 1 MG TABLET PO (14:19)
[2022-09-23 15:10] VITALS: BP 138/70; PULSE 73; RESP 18; TEMP 36.2; O2SAT 96
[2022-09-23 19:14] VITALS: BP 157/75; PULSE 71; RESP 18; TEMP 36.8; O2SAT 97
[2022-09-23] MEDS: QUEtiapine Fumarate 100 MG TABLET PO (21:16)
[2022-09-23] MEDS: Nortriptyline HCl 25 MG CAPSULE 50 MG PO (21:16)
[2022-09-23] MEDS: traZODone HCL 50 MG TABLET 150 MG PO (21:16)
[2022-09-23] MEDS: Latanoprost 0.005 % Ophth Sol 2.5 ML DROPS 1 DROP EYE-BOTH (21:37)
[2022-09-23] MEDS: Acetaminophen 325 MG TABLET 650 MG PO (22:10)
[2022-09-23] MEDS: Cocoa Butter/Zinc Oxide SUPP.RECT 1 SUPP PR (22:16)
[2022-09-23 23:31] VITALS: BP 152/75; PULSE 71; RESP 18; TEMP 36.6; O2SAT 95
[2022-09-24 03:34] VITALS: BP 117/62; PULSE 72; RESP 18; TEMP 36.1; O2SAT 97
[2022-09-24] MEDS: Omeprazole 20 MG CAPSULE.DR PO (05:33)
[2022-09-24] MEDS: Acetaminophen 325 MG TABLET 650 MG PO (05:33)
[2022-09-24 07:30] VITALS: BP 161/87; PULSE 71; RESP 17; TEMP 36.6; O2SAT 96
[2022-09-24] MEDS: PHENobarbitaL 30 MG TABLET PO (07:45)
[2022-09-24] MEDS: 0.9 % Sodium Chloride Flush 3 ML SYRINGE IVFLUSH (07:45)
[2022-09-24] MEDS: hydrALAZINE HCl 25 MG TABLET PO (07:46)
[2022-09-24] MEDS: lisinopriL 20 MG TABLET PO (07:46)
[2022-09-24] MEDS: amLODIPine Besylate 5 MG TABLET PO (07:46)
[2022-09-24] MEDS: Finasteride 5 MG TABLET PO (07:46)
[2022-09-24] MEDS: Thiamine HCL 100 MG TABLET PO (07:47)
[2022-09-24] MEDS: metroNIDAZOLE 500 MG TABLET PO (07:47)
[2022-09-24] MEDS: Gabapentin 400 MG CAPSULE PO (07:47)
[2022-09-24] MEDS: Folic Acid 1 MG TABLET PO (07:47)
[2022-09-24] MEDS: lamoTRIgine 100 MG TABLET 200 MG PO (07:47)
[2022-09-24] MEDS: Cholecalciferol (Vitamin D3) 10 MCG TABLET PO (07:47)
[2022-09-24] MEDS: QUEtiapine Fumarate 25 MG TABLET PO (07:47)
[2022-09-24] MEDS: Pramipexole Di-HCL 0.25 MG TABLET PO (07:47)
[2022-09-24] MEDS: Multivitamin TABLET 1 TAB PO (07:47)
--- NOTE | 2022-09-24 11:19 | P.DS_ITS ---
DS: Providers Provider Date of Service: 09/24/22 Date of admission: 09/17/22 23:51 Date of discharge: 09/24/22 Primary care physician: Wilmer Enciso MD Consults: 09/18/22 05:56 Consult to Gastroenterology Routine Consulting Provider: Jimenez Steiner Reason for consultation: bloody stool- likelyhemerrhoid? Has provider been notified: No 09/18/22 14:41 Addiction Medicine Routine Consulting Provider: Addiction Covering Reason for consultation: alcohol use disorder Has provider been notified: No Consult to Care Team Routine Comment: Reason for consultation: alcohol use disorder 09/21/22 21:11 Consult to Psychiatry Routine Consulting Provider: Psych Covering Reason for consultation: Pt of Dr Haskins, known for 15 yrs-very depressed 09/22/22 13:17 Addiction Medicine Routine Consulting Provider: Addiction Covering Reason for consultation: SA Attending physician on discharge: Malcolm Grider Discharging clinician: Eleanor Gee DS: Diagnosis Discharge Diagnosis (1) Bright red blood per rectum: Status: Acute (2) Alcohol abuse with withdrawal: Status: Acute (3) Acute colitis: Status: Acute DS: Summary Hospital Course Hospital Course: From H&P on day of admission 67-year-old male past medical history of alcohol abuse, anxiety, cognitive and neurobehavioral dysfunction following brain injury, depression, HTN, seizure disorder, history of subdural hematoma, TIA, TBI, presents to the hospital with complaints abdominal pain as well as ?? Constipation, as well as bladder and bowel incontinence.? Patient is very vague and a poor historian when given history, he states that he has to strain very hard in order to relieve himself to move his bowels, reports lower abdominal pain, nonradiating, the pain is 8/10, constant for the past month, has difficulty moving his bowels, reports urinary incontinence no urinary urgency dysuria or frequency.? Patient reports that sometimes his stools also watery.? He denies any fever, no chills.? He does complain of bright red blood per rectum. He denies having any shortness of breath although on my exam patient is having significant audible wheezing, denies any orthopnea or PND, no lower extremity edema.? Denies any chest pain.? Patient reports that he drinks a significant amount of wine and liquor 4 to 5 times a week.? He reports that he is feeling like is withdrawing right now. Per report obtained from ED patient was found AMS covered in feces.? Noted to h ave bright blood in feces after having multiple episodes of diarrhea in the ED. On arrival to the ED patient hemodynamically stable no significant abnormal vitals Labs are significant for WBC count of 13.1, hemoglobin of 13, hematocrit 39, potassium of 5.5, creatinine of 2.2 with a baseline of around 1.27, urine positive for leukocyte Estrace and WBC COVID-19 negative, stool occult positive for blood Abdominal pelvic CT shows finding consistent with colitis involving the distal sigmoid colon.? No pneumatosis to suggest specific evidence of ischemic bowel, no diverticulosis. Acute colitis/Bright red blood per rectum. . seen by GI, s/p flexible sigmoidoscopy 09/18 - finding suggestive of ischemic colitis. He was treated with IV ceftriaxone and flagyl and will be transitioned to p.o. to complete total 10 day course of antibiotics. His abdominal pain has resolved and he is tolerating a regular diet. He has had no further episodes of rectal bleeding. Essential hypertension with elevated blood pressure readings Amlodipine increased to 5mg daily. continued on baseline dose of lisinopril. hydralazine was added TID. blood pressure improving. will need close outpatient follow up for blood pressure monitoring Acute kidney injury, pre renal. Improved with IVF . Renal function back to baseline Hyperkalemia. secondary to ADORE. resolved UTI ruled out. Urine culture showed growing mixed bacterial dwaine characteristic of contamination Alcohol use disorder. patient was treated with phenobarbatol protocol. no evidence of alcohol withdrawal at this time. seen by addiction medicine, not related start medication for AUD at this time. shortness of breath. patient reports chronic and related to deconditioning, no change from baseline and no associated cough. CXR negative, lungs clear on exam, o2 sats stable in mid 90s. no further impatient workup required. Time Spent with Patient Time attestation: Total time spent providing and/or coordinating discharge services: Discharge coordination time: Greater than 30 minutes Quality: Safe Use of Opioids Does Pt have an Active Cancer Diagnosis on the Problem List?: No Quality: Stroke Does the patient have a stroke diagnosis?: No Physical Exam Vital Signs: Vital Signs: Last Vital Signs Temp 97.8 F 09/24/22 07:30 Pulse 71 09/24/22 07:30 Resp 17 09/24/22 07:30 BP 161/87 H 09/24/22 07:30 Pulse Ox 96 09/24/22 07:30 O2 Del Method 09/24/22 07:30 BMI result Body Mass Index 30.8 Const: General: cooperative, comfortable, no acute distress, alert and awake Nutritional Appearance: overweight Orientation/consciousness: patient oriented x3 Resp: Effort & Inspection: normal respiratory effort, able to speak in complete sentences and decreased respiratory effort Auscultation: clear to auscultation bilaterally and diminished lung sounds Cardio: Rate: regular rate Rhythm: regular rhythm Heart sounds: S1 normal heart sound present and S2 normal heart sound present GI: Inspection: No distended Palpation (GI): Soft to palpation and nontender Neuro: General: patient oriented x3 and CN's II-XI intact bilaterally Extrem: General: Yes no pedal edema Psych: Affect: Blunted affect present DS: Data Data Completed and Pending Completed studies during hospitalization [Text1]: Pending at discharge 09/18/22 15:03 Surgical [PTH] Routine Procedures Other Electroconvulsive Therapy (10/01/21) Discharge Plan Discharge Anticipated Discharge Date/Time: 09/24/22 11:05 Patient Disposition: Home, Self-Care Discharge Diagnosis: colitis HTN ADORE Referrals: [facility]Other[facility] - 3-5 Days ([place] APPOINTMENT FOR MEDICATION ASSISTED TREATMENT IS SCHEDULED FOR WEDNESDAY 09/26 AT 1:30PM ) [facility] [Other] - 1 Week (DIRECTOR EMPLOYMENT, AN OUT PATIENT DIRECTOR EMPLOYMENT WILL CONTACT YOU. ) [facility] [Outside] - 3-5 Days (HALF-WAY ) Wilmer Enciso MD [Primary Care Provider] - 1 Week Discharge Medications: New cefuroxime axetil 500 mg Tablet 500 mg PO Q12H 3 Days Qty: 6 0RF metronidazole 500 mg Tablet 500 mg PO Q8H 3 Days Qty: 9 0RF hydralazine 25 mg Tablet 25 mg PO TID 30 Days Qty: 90 0RF Protocol: Hold for SBP< HOLD for SBP < : 90 amlodipine 5 mg Tablet 5 mg PO DAILY 30 Days Qty: 30 0RF Protocol: Hold for SBP< HOLD for SBP < : 90 Continued oxybutynin chloride 10 mg tablet extended release 24hr 10 mg PO DAILY nortriptyline 50 mg capsule 50 mg PO BEDTIME pramipexole 0.25 mg tablet 0.25 mg PO TID Qty: 84 0RF trazodone 150 mg tablet 150 mg PO BEDTIME Qty: 30 5RF Rx Instructions: 1 bedtime may repeat x 1 for insomnia quetiapine 100 mg tablet 100 mg PO BEDTIME trazodone 150 mg tablet 1 tab PO BEDTIME PRN (Reason: Sleep) Rx Instructions: USED ONLY IF SCHEDULED DOSE DOSE NOT PRODUCE DESIRED EFFECT AFTER 1 HOUR multivitamin Tablet 1 tab PO DAILY latanoprost 0.005 % drops 1 drp ophthalmic (eye) BEDTIME lamotrigine [Lamictal] 200 mg tablet 1 tab PO BID polyvinyl alcohol [Artificial Tears (polyvin alc)] 1.4 % Drops 1 drp OPHTHALMIC (EYE) Q1H PRN (Reason: Dry Eyes) lisinopril 20 mg tablet 1 tab PO DAILY lidocaine [Lidoderm] 5 % Adhesive Patch,Medicated 1 patch TOPICAL Q12H PRN (Reason: Pain) Rx Instructions: leave on most painful area for up to 12 hrs omeprazole 20 mg capsule,delayed release(DR/EC) 1 cap PO BID albuterol sulfate 90 mcg/actuation HFA aerosol inhaler 180 mcg inhalation Q6H PRN (Reason: Wheezing) finasteride 5 mg tablet 1 tab PO DAILY cholecalciferol (vitamin D3) [Vitamin D3] 10 mcg (400 unit) Capsule 10 mcg PO DAILY tamsulosin 0.4 mg capsule 1 cap PO DAILY gabapentin 400 mg capsule 1 cap PO TID quetiapine 50 mg tablet 50 mg PO BID Rx Instructions: take 1 am 1 in aft quetiapine 25 mg tablet 25 mg PO BID Label Comments: 1 am 1 in afternoon added to 50 mg dose for total dose 75 mg 2 x day morning and aft lorazepam 1 mg tablet 1 mg PO Q6H PRN (Reason: anxiety) Qty: 60 2RF Rx Instructions: max 2 x 24 hrs Do NOT GIVE IF INTOXICATED Discontinued amlodipine 2.5 mg Tablet 2.5 mg PO DAILY Qty: 30 0RF Protocol: Hold for SBP< HOLD for SBP < : 90 Discharge Orders: Discharge Order (Routine); Ordered 09/24/22 Ordered By: Eleanor Gee Activity on Discharge: As tolerated Stand Alone Forms: Patient Portal Discharge page Care Plan Goals: see below Health Concerns: colitis uncontrolled blood pressure ADORE hyperkalemia alcohol withdrawal Plan of Treatment: complete course of antibiotics for colitis - ceftin and flagyl. do not drink alcohol while taking antibiotics Dose Of Norvasc has been increased to 5 mg daily you have been started on hydralazine 25 mg 3 times daily for better blood pressure control renal function base to baseline potassium levels returned to normal call to schedule follow up with PCP for close follow up for blood pressure outpatient follow up at [facility] Assessment: see discharge summary Discharge Date/Time: 09/24/22 15:17
[2022-09-24] MEDS: QUEtiapine Fumarate 50 MG TABLET PO (11:42)
[2022-09-24 11:46] VITALS: BP 166/81; PULSE 76; RESP 18; TEMP 36.8; O2SAT 98
--- NOTE | 2022-09-24 12:37 | P.F2F_ITS ---
Service Date Service Date: 09/24/22 Encounter Date of encounter: 09/24/22 Reasons for Services Signs and symptoms assessed: needs penitentiary for blood pressure checks Reason for penitentiary: medication management and other (blood pressure checks ) Overseeing Care: Wilmer Enciso Homebound: Leaving the home is medically contraindicated at this time without the asist of a device and/or another person due th the listed conditions above and below. Reason homebound: unsteady gait / fall risk Certification: Based on the above findings, I certify that this patient is confined to the home and needs intermittent penitentiary care, physical therapy and/or speech therapy, or continues to need occupational therapy. The patient is under my care, and I have initiated the establishment of the plan of care. The patient will be followed by a physician who will periodically review the plan of care.
--- NOTE | 2022-09-24 13:23 | MHC.CM.PN ---
PT MEDICALLY CLEARED FOR D/C HOME W/[facility] FOR HALF-WAY, A [facility] INTAKE APPT ON 09/26 AT 1:30PM FOR MAT AND A [facility] WILL BE IN CONTACT W/ADRIENNE ATKINSON FOR S TRANSPORT.
[2022-09-24] MEDS: Artificial Tears 15 ML DROPS 1 DROP EYE-BOTH (14:26)
[2022-09-24] MEDS: LORazepam 1 MG TABLET PO (14:34)
== END 2022-09-24 15:17 | disposition home or self-care (01) | DRG 391 ==
LOC: HO.ED 21:34 → HO.EDOVER 09-18 00:18 → HO.S3 09-18 01:52
PROVIDERS: Internal Medicine Gastroenterology; Student in an Organized Health Care Education/Training Program; Admitting Provider Internal Medicine; Emergency Provider Student in an Organized Health Care Education/Training Program; PCP Internal Medicine; Visit Provider Physician Assistant Medical
PROC: 0DJD8ZZ Inspection of Lower Intestinal Tract, Via Natural or Artificial Opening Endoscopic (ICD-10-PCS; CPT 45330; principal; 2022-09-18 14:30)
DX: K52.9 Noninfective gastroenteritis and colitis, unspecified (principal); K57.31 Diverticulosis of large intestine without perforation or abscess with bleeding; F10.139 Alcohol abuse with withdrawal, unspecified; N17.9 Acute kidney failure, unspecified; I10 Essential (primary) hypertension; E86.0 Dehydration; E87.5 Hyperkalemia; G40.909 Epilepsy, unspecified, not intractable, without status epilepticus; R41.89 Other symptoms and signs involving cognitive functions and awareness; S06.9XAS Unspecified intracranial injury with loss of consciousness status unknown, sequela; F06.70 Mild neurocognitive disorder due to known physiological condition without behavioral disturbance; X58.XXXS Exposure to other specified factors, sequela; K64.8 Other hemorrhoids; R15.9 Full incontinence of feces; R32 Unspecified urinary incontinence; Z86.73 Personal history of transient ischemic attack (TIA), and cerebral infarction without residual deficits; Z20.822 Contact with and (suspected) exposure to COVID-19; Z88.5 Allergy status to narcotic agent; Z79.899 Other long term (current) drug therapy
CPT/HCPCS: 0241U; 36415; 71045; 74176; 80048; 80053; 80076; 81001; 81003; 82272; 83605; 83880; 84484; 85025; 85027; 85610; 86850; 86870; 86885; 86900; 86901; 86902; 86905; 86920; 86922; 87040; 87086; 87493; 87507; 88305; 93005; 99285; J0610; J0696; J2543; J2560

== ENCOUNTER → 2022-09-17 23:51 | Outpatient (BNV) | payer MEDICARE, MEDICAID, SELFPAY | PROVIDERS: Admitting Provider Internal Medicine; Emergency Provider Student in an Organized Health Care Education/Training Program; PCP Internal Medicine; Visit Provider Internal Medicine Gastroenterology | DX: K62.5 Hemorrhage of anus and rectum (principal); F10.139 Alcohol abuse with withdrawal, unspecified; K52.9 Noninfective gastroenteritis and colitis, unspecified | CPT/HCPCS: 99222 ==

== ENCOUNTER → 2022-09-26 13:25 | Outpatient (BNVA) | payer MEDICARE, MEDICAID, SELFPAY | PROVIDERS: PCP Internal Medicine; Visit Provider Nurse Practitioner Psychiatric/Mental Health | DX: F10.20 Alcohol dependence, uncomplicated (principal); Z99.3 Dependence on wheelchair; Z59.01 Sheltered homelessness | CPT/HCPCS: 99212 ==

== ENCOUNTER 2022-10-03 15:26 | Inpatient (IN) | payer MEDICARE, MEDICAID, SELFPAY ==
--- NOTE | ~2022-10-03 | FL_ITS ---
EXAMINATION: XR BARIUM SWALLOW CLINICAL INFORMATION: Difficulty swallowing. COMPARISON: None TECHNIQUE: Modified barium swallow was performed under lateral fluoroscopy with patient sitting and in presence of speech therapist. FINDINGS: Following oral administration of thick barium, thin barium, apple puree there is laryngeal penetration with trace retention of barium in the valleculae which cleared with subsequent dry swallowing. On oral administration of barium coated cookie and barium coated chicken there is normal oral mastication with propagation bolus through the pharynx and esophagus. There is mild retention of solid food in the valleculae cleared with thin barium or water. On oral administration of barium tablet there was initial obstruction in the valleculae. It cleared with subsequent drinking of more water FLUOROSCOPY TIME: 4.2 minutes DOSE AREA PRODUCT: 3.59 uGy-m2 (microgray-meter squared) FL/FL barium swallow modified IMPRESSION: Laryngeal penetration on several occasions but no laryngeal aspiration. Mild retention of solid food in the valleculae which cleared with subsequent oral administration of water or thin barium. Correlate with speech therapy results.
--- NOTE | ~2022-10-03 | XR_ITS ---
EXAMINATION: XR BILATERAL HIPS WITH AP PELVIS CLINICAL INFORMATION: Fall bilateral replacements, evaluate for placement COMPARISON: Pelvis and hip radiographs 01/05/2022 TECHNIQUE: AP view of the pelvis and 2 views of each hip were obtained. FINDINGS: Moderate degenerative changes of the right hip with loss of superolateral joint space. Similar chronic posttraumatic deformity of the right femoral neck with chronic foreshortening. Status post left total hip arthroplasty in unchanged alignment however the lack of a crosstable lateral view limits assessment for dislocation. Atherosclerotic vascular calcification. Calcified phleboliths in the pelvis. No acute fracture or dislocation appreciated. XR/XR hip BI w PEL1V IMPRESSION: Moderate degenerative changes of the right hip with loss of superolateral joint space. Similar chronic posttraumatic deformity of the right femoral neck with chronic foreshortening. Status post left total hip arthroplasty in unchanged alignment however the lack of a crosstable lateral view limits assessment for dislocation. No acute fracture or dislocation appreciated on the available views.
--- NOTE | ~2022-10-03 | XR_ITS ---
EXAMINATION: XR FOOT, RIGHT CLINICAL INFORMATION: Pain COMPARISON: 2018 TECHNIQUE: AP, lateral, and oblique views of the right foot. FINDINGS: Postsurgical changes of arthrodesis of the first metatarsophalangeal joint, the hardware, plate and screws remain in place unchanged intact. There is developed large osteophyte from the head of the first metatarsal protruding laterally abutting the head of the second metatarsal. This might be the source of patient's pain. No fracture. No osteolytic changes. There is a small inferior calcaneal spur. There are vascular calcifications. There are degenerative osteoarthritic changes intertarsal and tarsometatarsal joints. XR/XR foot RT 2V IMPRESSION: * Postsurgical changes of arthrodesis first metatarsophalangeal joint. * There is developed large osteophyte from the head of the first metatarsal protruding laterally abutting the head of the second metatarsal. This might be the source of patient's pain. * Underlying degenerative osteoarthritis.
--- NOTE | ~2022-10-03 | XR_ITS ---
EXAMINATION: XR CHEST CLINICAL INFORMATION: Question aspiration COMPARISON: Previous chest x-ray 11/12/2022 TECHNIQUE: Frontal view of the chest was obtained. FINDINGS: The cardiac and mediastinal contours are stable. The lung volumes are low. There is slight elevation of the right hemidiaphragm. There is bibasilar subsegmental atelectasis, right greater than left. This is similar to 11/12/2022 exam. No definite pneumonia. No pleural effusion. No pneumothorax. XR/XR chest 1V IMPRESSION: Low lung volumes, bibasilar subsegmental atelectasis and slight elevation of the right hemidiaphragm similar to previous exam.
--- NOTE | ~2022-10-03 | XR_ITS ---
EXAMINATION: XR FOOT, LEFT CLINICAL INFORMATION: Pain COMPARISON: None available. TECHNIQUE: AP, lateral, and oblique views of the left foot. FINDINGS: There is mild loss of MTP, PIP and DIP joint spaces with mild spurring the PIP joint second and third digits. No acute fracture, lytic or sclerotic process seen. The ankle mortise and subtalar joints are normal. The soft tissues are normal. XR/XR foot LT 2V IMPRESSION: Mild degenerative changes MTP, PIP and DIP joints. No visible acute fracture or dislocation seen.
--- NOTE | ~2022-10-03 | MR_ITS ---
EXAMINATION: MR BRAIN WITHOUT CONTRAST CLINICAL INFORMATION: Acute change in cognition and mobility. COMPARISON: CT head from 11/08/2022. TECHNIQUE: MRI of the brain was obtained using routine sequences without contrast. FINDINGS: No focal restricted diffusion is demonstrated to suggest acute or subacute cerebral ischemia. No evidence of acute hemorrhagic products on heme-sensitive imaging. Hemosiderin staining associated with chronic encephalomalacia of the right temporal, right frontal, and left occipital lobes. There are also small regions of chronic and simple malacia in the parasagittal aspects of the bilateral parietal lobes. Scattered periventricular, deep white matter, and brainstem T2 FLAIR hyperintensities consistent with underlying microangiopathy. Ex vacuo dilatation of the right lateral ventricle. Proportional prominence of the ventricles and sulcal spaces without evidence of obstructive hydrocephalus. No abnormal mass effect. No midline shift. Normal appearance of the pituitary gland. Normal positioning of the cerebellar tonsils. Normal arterial and venous vascular flow voids are present. Changes of prior right hemispheric craniotomy. Normal, homogeneous marrow signal. Chronic partially ossified polypoid lesion within the right maxillary sinus. Mild mucosal thickening of the remaining paranasal sinuses. No signal abnormalities within the mastoids. MR/MR head/brain wo con IMPRESSION: 1. No demonstrated acute intracranial abnormalities. 2. Chronic encephalomalacia of the right temporal, right frontal, and left occipital lobes. Small regions of chronic encephalomalacia in the parasagittal aspects of the bilateral parietal lobes. Moderate underlying microangiopathy and generalized cerebral volume loss.
--- NOTE | ~2022-10-03 | CT_ITS ---
EXAMINATION: CT cervical spine wo IV con, CT head/brain wo IV con INDICATION INFORMATION: Reason for Exam fall pain COMPARISON: CT brain 11/08/2022 TECHNIQUE: Separate noncontrast CT examinations of the head and cervical spine were performed. Coronal and sagittal images were created for each examination at the technologist workstation. This CT examination was performed using dose optimization techniques as appropriate, variously including the following: *Automated exposure control *Adjustment of mA and/or kV according to patient size (this includes techniques or standardized protocols for targeted exams where dose is matched to indication/reason for exam; i.e. extremities or head) *Use of iterative reconstruction technique DLP: 1767.78 mGy-cm mGy-cm FINDINGS: Head: No acute osseous or soft tissue abnormality. Severe paranasal sinus mucosal thickening with near complete opacification of the posterior ethmoid air cells and right frontal sinus. Stable postsurgical changes of right temporoparietal craniotomy. Stable right frontotemporal encephalomalacia with ex vacuo dilatation of the right lateral ventricle and overall prominence of the ventricles and sulci compatible with moderate global parenchymal volume loss. There is no evidence of acute intracranial hemorrhage or territorial infarction. No abnormal mass effect or midline shift is seen. No extra-axial fluid collections are identified. Cervical spine: There is no evidence of acute cervical spine fracture. Vertebral bodies remain normal in height. Alignment is maintained. Disc space heights are maintained. No pre- or paravertebral soft tissue abnormality is identified. Visualized portions of the lung apices are unremarkable. The thyroid gland is unremarkable. CT/CT cervical spine wo IV con IMPRESSION: 1. No acute intracranial abnormality. Stable postsurgical changes with right frontotemporal encephalomalacia, global volume loss, and extraocular dilatation of the right lateral ventricle. 2. No cervical spine fracture or traumatic malalignment.
--- NOTE | ~2022-10-03 | XR_ITS ---
EXAMINATION: XR CHEST CLINICAL INFORMATION: Confusion, weakness COMPARISON: Chest 10/20/2022 TECHNIQUE: Frontal view of the chest was obtained. FINDINGS: The lungs are hypoexpanded with platelike atelectasis in both lung bases. The heart size and perivascular is normal. No gross bony abnormality seen. XR/XR chest 1V IMPRESSION: Hypoexpanded lungs with bibasilar platelike atelectasis.
--- NOTE | ~2022-10-03 | CT_ITS ---
CT ORBIT WITHOUT CONTRAST CLINICAL INFORMATION: Pain right orbit with extraocular movement. COMPARISON: Brain MRI 11/12/2022. Multiple additional prior CT studies. TECHNIQUE: Altered detector CT acquisition of the orbits obtained without IV contrast. This CT examination was performed using dose optimization techniques as appropriate, variously including the following: *Automated exposure control *Adjustment of mA and/or kV according to patient size (this includes techniques or standardized protocols for targeted exams where dose is matched to indication/reason for exam; i.e. extremities or head) *Use of iterative reconstruction technique FINDINGS: No retrobulbar mass lesions are identified on this noncontrast CT. There is preserved fat within the orbital fissures and pterygopalatine fossa bilaterally. The globes and extraocular muscles are unremarkable. No post septal cellulitic changes. A peripherally ossified structure extending from the dorsal margin of the right nasolacrimal duct into the right maxillary sinus is stable when compared to examinations dated back to 08/24/2008 favoring a benign etiology. There are large fluid levels within the left maxillary sinus and within the right frontal sinus the can be correlated for clinical signs of acute sinusitis. Chronic right craniotomy changes are partially imaged and chronic encephalomalacia, gliosis, and exvacuodilatation of the right lateral ventricle is unchanged when compared to recent prior exams. CT/CT orbit BI wo IV con IMPRESSION: - No definite significant intraorbital soft tissue findings to assessment is limited on a noncontrast CT of the orbits. No retrobulbar mass lesions and no cellulitic changes appreciated. - There are large fluid levels within the left maxillary sinus and within the right frontal sinus the can be correlated for clinical signs of acute sinusitis. - A peripherally ossified structure extending from the dorsal margin of the right nasolacrimal duct into the right maxillary sinus is stable when compared to examinations dated back to 08/24/2008 favoring a benign etiology.
--- NOTE | ~2022-10-03 | XR_ITS ---
EXAMINATION: XR CHEST CLINICAL INFORMATION: Cough, fatigue COMPARISON: CT abdomen 09/17/2022, chest radiographs 09/17/2022, 04/08/2022 TECHNIQUE: 2 views of the chest were obtained. FINDINGS: Mild respiratory motion artifact on lateral view. There are low lung volumes similar to prior studies. Linear disc atelectasis versus scarring is again seen at the bases. There is no lobar or segmental airspace consolidation or groundglass opacity or effusion. The costophrenic sulci are clear. The cardiopericardial silhouette is within normal size. The vascularity is unremarkable. No acute bony abnormality. XR/XR chest 2V IMPRESSION: 1. Low lung volumes with bibasilar linear disc atelectasis versus scarring. 2. No airspace consolidation or effusion.
[2022-10-03 15:54] VITALS: BP 170/96; BP 176/82; PULSE 102; PULSE 96; RESP 17; TEMP 36.8; O2SAT 96; O2SAT 98; BMI 28.8
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
[2022-10-03 19:25] LABS: MANUAL DIFF FLAG NO
[2022-10-03 19:27] LABS: Basophils Absolute Auto 0.1 X10*3/uL (0.0-0.2); Basophils Percent Auto 0.8 % (0-2); Eosinophils Absolute Auto 0.2 X10*3/uL (0.0-0.4); Eosinophils Percent Auto 2.3 % (0-4); Hematocrit 40.8 % (42.0-52.0); Hemoglobin 13.3 g/dl (14.0-18.0); Imm Gran Abs Auto 0.05 X10*3/uL (0.00-0.03); Imm Gran Pct Auto 0.7 % (0.0-0.4); Lymphocytes Absolute Auto 1.9 X10*3/uL (1.2-4.9); Lymphocytes Percent Auto 25.3 % (20-40); Mean Corpuscular HGB Conc 32.6 g/dl (31.0-36.0); Mean Corpuscular Hemoglobin 31.2 pg (27.0-33.0); Mean Corpuscular Volume 95.8 fL (80.0-98.0); Mean Platelet Volume 9.5 fL (9.4-12.4); Monocytes Absolute Auto 0.6 X10*3/uL (0.1-1.2); Monocytes Percent Auto 8.3 % (2-11); Neutrophils Absolute Auto 4.7 x10*3/uL (2.0-8.3); Neutrophils Percent Auto 62.6 % (45-73); Platelet Count 270 X10*3/uL (160-400); Red Blood Count 4.26 X10*6/uL (4.60-5.80); Red Cell Distribution Width 12.7 % (11.0-16.0); White Blood Count 7.4 X10*3/uL (4.8-10.8)
[2022-10-03 19:48] LABS: Alanine Aminotransferase 64 U/L (0-40); Albumin Level 4.3 g/dL (3.5-5.0); Alkaline Phosphatase 89 U/L (39-117); Anion Gap 16 (12-20); Aspartate Amino Transferase 37 U/L (5-37); Bilirubin Direct < 0.2 mg/dL (0.0-0.5); Bilirubin Total 0.4 mg/dL (0.0-1.0); Blood Urea Nitrogen 18 mg/dL (9-16); Calcium 9.7 mg/dL (8.4-10.2); Carbon Dioxide 24 mmol/L (22-29); Chloride 104 mmol/L (96-108); Creatinine Clr Calc Pharmacy 97.9; Estimated Glomerular Filt Rate > 60; Ethanol < 10 mg/dL; Glucose Random 104 mg/dL (60-115); Magnesium 1.9 mg/dL (1.6-2.6); Potassium 4.5 mmol/L (3.3-5.1); Sodium 139 mmol/L (135-145); Total Protein 6.9 g/dL (6.5-8.0)
--- NOTE | 2022-10-03 22:08 | PHA.MEDREC ---
Pharmacy Consult ? Medication Reconciliation Pharmacy has completed the medication reconciliation.
[2022-10-03 23:24] VITALS: BP 183/111; PULSE 85; RESP 18; TEMP 36.5; O2SAT 95
[2022-10-03] MEDS: traZODone HCL 100 MG TABLET 200 MG PO (23:35)
[2022-10-03] MEDS: lamoTRIgine 100 MG TABLET 200 MG PO (23:35)
[2022-10-03] MEDS: LORazepam 1 MG TABLET PO (23:36)
[2022-10-03 23:42] LABS: COVID-19 Test Negative (Negative)
--- NOTE | 2022-10-04 | ECG_ITS ---
Test Reason : general medical Blood Pressure : / mmHG Vent. Rate : 087 BPM Atrial Rate : 087 BPM P-R Int : 190 ms QRS Dur : 100 ms QT Int : 386 ms P-R-T Axes : 045 -27 092 degrees QTc Int : 464 ms Normal sinus rhythm Left axis deviation Abnormal QRS-T angle, consider primary T wave abnormality Abnormal ECG When compared with ECG of 17-SEP-2022 19:46, PA interval has decreased Referred By: Kimo Ramirez Electronically Signed By:BONNIE NOYOLA MD
[2022-10-04 05:30] VITALS: BP 154/74; PULSE 81; RESP 20; TEMP 36.4; O2SAT 94
--- NOTE | 2022-10-04 06:06 | PC.NURSE ---
Pt was changed and clean. Pt has type I pressure ulcer on his bottom. Pt was educated to change position q2h. Pt refused to change to hospital attire and to take the morni meds. Pt urine was not been able to collect d/t was disposable multiple time. Pt needs a crisis Chaya. will continue to moniotr.
--- NOTE | 2022-10-04 06:20 | PC.NURSE ---
Pt was changed and clean. Pt has type I pressure ulcer on his bottom. Pt was educated to change position q2h. Pt refused to change to hospital attire and to take the mornign meds. Pt urine was not been able to collect d/t was disposable multiple time. Pt needs a crisis Chaya. will continue to monitor.
[2022-10-04 07:05] VITALS: BP 178/87; PULSE 81; RESP 20; TEMP 36.6; O2SAT 97
--- NOTE | 2022-10-04 07:43 | PC.NURSE ---
Security called to change patient over
--- NOTE | 2022-10-04 08:26 | PC.NURSE ---
Provider aware of BP
[2022-10-04 08:50] LABS: Appearance Urine Clear; Color Urine Yellow; Glucose Urine UA Negative (Negative); Leukocyte Esterase Urine Negative (Negative); Nitrite Urine Negative (Negative); Specific Gravity - Urine 1.015 (1.005-1.025); Urine Blood Negative (Negative); Urine Ketones Negative (Negative); Urine Protein Negative (Neg-Trace)
[2022-10-04] MEDS: Multivitamin TABLET 1 TAB PO (08:56)
[2022-10-04] MEDS: lamoTRIgine 100 MG TABLET 200 MG PO ×2 (08:57→21:58)
[2022-10-04] MEDS: amLODIPine Besylate 5 MG TABLET PO (08:58)
[2022-10-04] MEDS: QUEtiapine Fumarate 25 MG TABLET PO ×2 (08:58→18:10)
[2022-10-04] MEDS: hydrALAZINE HCl 25 MG TABLET PO ×2 (08:58→21:52)
[2022-10-04] MEDS: QUEtiapine Fumarate 50 MG TABLET PO ×2 (08:58→16:49)
[2022-10-04] MEDS: lisinopriL 20 MG TABLET PO (08:58)
[2022-10-04] MEDS: Tamsulosin HCL 0.4 MG CAPSULE PO (08:58)
[2022-10-04] MEDS: Finasteride 5 MG TABLET PO (08:59)
[2022-10-04 09:07] LABS: Amphetamine Screen Urine Not Detected (Not Detect); Barbiturates, Urine POSITIVE (Not Detect); Benzodiazepines Screen Urine Not Detected (Not Detect); Cannabinoid Screen Urine Not Detected (Not Detect); Cocaine Screen Urine Not Detected (Not Detect); Fentanyl, urine Not Detected (Not Detect); Opiate Screen Urine Not Detected (Not Detect); Phencyclidine Screen Urine Not Detected (Not Detect)
--- NOTE | 2022-10-04 09:08 | PC.NURSE ---
MICHELE Franco and this RN provided patient education to patient regarding medications. MICHELE Franco instructed to give lamictal despite being given last night at 2300
--- NOTE | 2022-10-04 09:18 | PC.NURSE ---
Provider aware of medications refused by patient
[2022-10-04] MEDS: Cholecalciferol (Vitamin D3) 10 MCG TABLET PO (09:31)
[2022-10-04] MEDS: Pramipexole Di-HCL 0.25 MG TABLET PO ×2 (09:31→21:52)
[2022-10-04 10:09] VITALS: BP 143/78; PULSE 86; RESP 20; TEMP 36.4; O2SAT 95
--- NOTE | 2022-10-04 11:23 | MHC.CARE ---
Carol Bacon, group sales representative is the personal care aide for this case [phone]
[2022-10-04] MEDS: Acetaminophen 325 MG TABLET 975 MG PO (11:53)
[2022-10-04 15:07] VITALS: BP 164/87; PULSE 86; RESP 20; TEMP 36.6; O2SAT 96
[2022-10-04] MEDS: Gabapentin 400 MG CAPSULE PO ×2 (16:49→21:52)
[2022-10-04] MEDS: Omeprazole 20 MG CAPSULE.DR PO (16:49)
[2022-10-04 18:00] VITALS: BP 124/84; PULSE 82; RESP 18; TEMP 36.4; O2SAT 95
[2022-10-04] MEDS: Magnesium Hydrox/Alum Hydrox 30 ML ORAL.SUSP PO (18:10)
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
[2022-10-04] MEDS: Nortriptyline HCl 25 MG CAPSULE 50 MG PO (21:52)
[2022-10-04] MEDS: QUEtiapine Fumarate 100 MG TABLET PO (21:53)
[2022-10-04] MEDS: Latanoprost 0.005 % Ophth Sol 2.5 ML DROPS 1 DROP EYE-BOTH (22:05)
[2022-10-04] MEDS: traZODone HCL 100 MG TABLET 200 MG PO (22:10)
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
[2022-10-05] MEDS: LORazepam 1 MG TABLET PO ×2 (02:55→15:27)
[2022-10-05] MEDS: Omeprazole 20 MG CAPSULE.DR PO ×2 (05:54→15:21)
[2022-10-05 06:00] VITALS: BP 158/72; PULSE 67; RESP 18; TEMP 36.6; O2SAT 97
[2022-10-05 08:44] LABS: Estimated Average Glucose 103 mg/dL; Hemoglobin A1c % 5.2 %
[2022-10-05 09:16] LABS: Cholesterol 220 mg/dL; HDL Cholesterol 47 mg/dL; LDL Cholesterol Calculated 143 mg/dl; Magnesium 2.2 mg/dL (1.6-2.6); Triglycerides 151 mg/dL
[2022-10-05 09:30] LABS: Folate 17.5 ng/mL (> or = 4.0); Vitamin B12 764 pg/mL (200-900)
[2022-10-05] MEDS: Finasteride 5 MG TABLET PO (09:36)
[2022-10-05] MEDS: lisinopriL 20 MG TABLET PO (09:39)
[2022-10-05] MEDS: QUEtiapine Fumarate 50 MG TABLET PO ×2 (09:39→15:26)
[2022-10-05] MEDS: hydrALAZINE HCl 25 MG TABLET PO ×2 (09:39→15:21)
[2022-10-05] MEDS: Cholecalciferol (Vitamin D3) 10 MCG TABLET PO (09:40)
[2022-10-05] MEDS: QUEtiapine Fumarate 25 MG TABLET PO ×2 (09:40→15:27)
[2022-10-05] MEDS: Gabapentin 400 MG CAPSULE PO ×2 (09:40→15:21)
[2022-10-05] MEDS: Pramipexole Di-HCL 0.25 MG TABLET PO ×3 (09:40→21:38)
[2022-10-05] MEDS: amLODIPine Besylate 5 MG TABLET PO (09:41)
[2022-10-05] MEDS: Multivitamin TABLET 1 TAB PO (09:41)
[2022-10-05] MEDS: Tamsulosin HCL 0.4 MG CAPSULE PO (09:42)
[2022-10-05] MEDS: lamoTRIgine 100 MG TABLET 200 MG PO ×2 (09:42→21:38)
--- NOTE | 2022-10-05 11:27 | PC.NURSE ---
Pt.'s sacral area assessed. Pt. has deep dimple on sacrum and some flaking, excoriated skin, which is dark pink and blancheable. No wound observed. Protective dressing placed o sacrum.
[2022-10-05 15:20] VITALS: BP 135/63
[2022-10-05] MEDS: Acetaminophen 325 MG TABLET 650 MG PO ×2 (15:31→21:36)
[2022-10-05 19:30] VITALS: BP 90/50; PULSE 80; RESP 16; O2SAT 97
[2022-10-05 19:31] VITALS: BP 78/60; PULSE 80; RESP 16; O2SAT 97
--- NOTE | 2022-10-05 19:37 | PM.EVENT ---
Event Note Date of Service: 10/05/22 Event Note: it was reported to me that pt is hypotensive with bp in the 70s/60s. pt otherwise, awake alert, talking, no acute complaints. pt was started on hydralazin on this admission. prior bp normal. will stop hydralazine. give one L or LR
[2022-10-05] MEDS: Lactated Ringers 1,000 ML 999 ML IV (20:16)
[2022-10-05 20:22] LABS: Lactic Acid 1.3 mmol/L (0.5-2.0)
[2022-10-05 20:25] VITALS: BP 120/70; PULSE 80; RESP 16; O2SAT 97
[2022-10-05 21:10] VITALS: BP 130/70; PULSE 77; RESP 20; TEMP 36.4; O2SAT 97
[2022-10-05] MEDS: Latanoprost 0.005 % Ophth Sol 2.5 ML DROPS 1 DROP EYE-BOTH (21:36)
[2022-10-05] MEDS: Lidocaine 5 % Ointment 35 GM 1 APPL TOPICAL (21:36)
[2022-10-05] MEDS: Nystatin Powder 15 GM BOTTLE 1 APPL TOPICAL (21:36)
[2022-10-05] MEDS: Nortriptyline HCl 25 MG CAPSULE 50 MG PO (21:37)
[2022-10-05] MEDS: hydrOXYzine HCL 25 MG TABLET PO (21:38)
[2022-10-05] MEDS: traZODone HCL 100 MG TABLET 200 MG PO (21:38)
[2022-10-05] MEDS: Gabapentin 300 MG CAPSULE 600 MG PO (21:38)
[2022-10-05] MEDS: QUEtiapine Fumarate 100 MG TABLET PO (21:38)
--- NOTE | 2022-10-05 22:59 | PC.NURSE ---
1929 Dr Duvla contacted notified 1. pt awake sensorium intact 2. c/o of room spinning 3. skin warm/dry 4. b/p L. 90/50 R. 78/60 5. pulse 80 bpm 6. 16 rr Plan A. establish IV B. 1000 ml LR over 1 hour C. stat lactate.
[2022-10-06] MEDS: traZODone HCL 50 MG TABLET PO (01:15)
[2022-10-06] MEDS: Melatonin 3 MG TABLET 9 MG PO ×2 (01:15→20:44)
[2022-10-06] MEDS: LORazepam 1 MG TABLET PO ×3 (01:26→21:43)
[2022-10-06 09:20] VITALS: BP 100/58; PULSE 74; RESP 20; TEMP 36.2; O2SAT 95
[2022-10-06] MEDS: Finasteride 5 MG TABLET PO (10:08)
[2022-10-06] MEDS: Multivitamin TABLET 1 TAB PO (10:09)
[2022-10-06] MEDS: Omeprazole 20 MG CAPSULE.DR PO ×2 (10:09→17:05)
[2022-10-06] MEDS: Tamsulosin HCL 0.4 MG CAPSULE PO (10:09)
[2022-10-06] MEDS: Gabapentin 300 MG CAPSULE 600 MG PO ×3 (10:09→20:43)
[2022-10-06] MEDS: polyethylene glycoL 3350 17 GM POWD.PACK PO ×2 (10:10→17:06)
[2022-10-06] MEDS: Pramipexole Di-HCL 0.25 MG TABLET PO ×3 (10:10→20:43)
[2022-10-06] MEDS: QUEtiapine Fumarate 25 MG TABLET PO ×2 (10:10→17:05)
[2022-10-06] MEDS: Cholecalciferol (Vitamin D3) 10 MCG TABLET PO (10:10)
[2022-10-06] MEDS: lamoTRIgine 100 MG TABLET 200 MG PO ×2 (10:10→20:44)
[2022-10-06] MEDS: calcium polycarbophiL TABLET 1 TAB PO (10:10)
[2022-10-06] MEDS: Nystatin Powder 15 GM BOTTLE 1 APPL TOPICAL ×2 (11:07→20:44)
[2022-10-06] MEDS: Lidocaine 5 % Ointment 35 GM 1 APPL TOPICAL ×2 (11:07→18:44)
--- NOTE | 2022-10-06 11:40 | HO.PSYCHPN ---
Subjective Subjective Date of Service: 10/06/22 Reason For Visit: Depression Subjective Notes: Conditional Voluntary Interim History: The patient is very well known by this team since he was admitted over the weekend, he has several prior admissions into this facility for depression with suicidality. The nursing staff reported that he has been compliant with treatment, his usually attention seeking. On interview he reported that he was feeling depressed and suicidal, he admitted several conflicts with his long term. We discussed about alcohol use disorder and the patient minimized it but he stated that he is on Vivitrol shot and he has engaged on treatment. We will try to gather more collateral information regarding this current admission. Mental Status Exam Mental Status Exam Patient Appearance: Well Grooomed Patient Orientation: Person and Situation Level of Consciousness: Awake Patient Behavior: Guarded and Passive Mood Description: Withdrawn Affect Description: Constricted Patient Cognition Impaired: Yes Ability to Follow Directions: Good Speech Pattern: Clear Hallucinations: None Delusions: Not Present Thought Process: Linear Thought Content: positive for [place] and positive for Linear Judgement: Fair Diagnostics Vital Signs (24Hr): Vital Signs - 24 hr 10/05/22 15:20 10/05/22 19:30 10/05/22 19:31 Temperature Pulse Rate 80 80 Respiratory Rate 16 16 Blood Pressure 135/63 90/50 L 78/60 L Pulse Oximetry 97 97 Oxygen Delivery Method Room Air Room Air 10/05/22 20:25 10/05/22 21:10 Temperature 97.6 F Pulse Rate 80 77 Respiratory Rate 16 20 Blood Pressure 120/70 130/70 Pulse Oximetry 97 97 Oxygen Delivery Method Room Air Room Air BMI result Body Mass Index 28.8 Labs Results: 10/03/22 19:20 10/03/22 19:19 Labs: Laboratory Results - last 48 hr 10/05/22 10/05/22 10/05/22 08:17 08:17 08:17 Estimat Average Glucose 103 Hemoglobin A1c % 5.2 Lactic Acid Magnesium 2.2 Triglycerides 151 Cholesterol 220 LDL Cholesterol, Calc 143 HDL Cholesterol 47 Vitamin B12 764 Folate 17.5 TSH 1.40 Free T4 1.00 10/05/22 20:01 Estimat Average Glucose Hemoglobin A1c % Lactic Acid 1.3 Magnesium Triglycerides Cholesterol LDL Cholesterol, Calc HDL Cholesterol Vitamin B12 Folate TSH Free T4 Medications Medications Current Medications Acetaminophen (Acetaminophen 325 Mg Tablet) 650 mg PO Q6H PRN PRN Reason: Headache/Pain Mild Scale (1-3) Last Admin: 10/05/22 21:36 Dose: 650 mg Al Hydroxide/Mg Hydroxide (Magnesium Hydrox/Alum Hydrox 30 Ml Oral.Susp) 30 ml PO Q6H PRN PRN Reason: Heartburn/Nausea Last Admin: 10/04/22 18:10 Dose: 30 ml Albuterol Sulfate (Albuterol Sulfate 90 Mcg 8 Gm Inhaler) 2 puff INHALE Q6H PRN PRN Reason: Wheezing Amlodipine Besylate (Amlodipine Besylate 5 Mg Tablet) 5 mg PO DAILY [facility]; Protocol Last Admin: 10/06/22 11:17 Dose: Not Given Benzocaine (Throat Lozenge, Medicated Lozenge) 1 lozenge MUCOUS MEM Q2H PRN PRN Reason: Sore Throat Calcium Polycarbophil (Calcium Polycarbophil Tablet) 1 tab PO DAILY [facility] Last Admin: 10/06/22 10:10 Dose: 1 tab Docusate Sodium (Docusate Sodium 100 Mg Capsule) 100 mg PO DAILY PRN PRN Reason: constipation Finasteride (Finasteride 5 Mg Tablet) 5 mg PO DAILY [facility] Last Admin: 10/06/22 10:08 Dose: 5 mg Gabapentin (Gabapentin 300 Mg Capsule) 600 mg PO TID [facility] Last Admin: 10/06/22 10:09 Dose: 600 mg Hydroxyzine HCl (Hydroxyzine Hcl 25 Mg Tablet) 25 mg PO Q6H PRN PRN Reason: Anxiety Last Admin: 10/05/22 21:38 Dose: 25 mg Lamotrigine (Lamotrigine 100 Mg Tablet) 200 mg PO BID [facility] Last Admin: 10/06/22 10:10 Dose: 200 mg Latanoprost (Latanoprost 0.005 % Ophth No 2.5 Ml Drops) 1 drop EYE-BOTH BEDTIME [facility] Last Admin: 10/05/22 21:36 Dose: 1 drop Lidocaine (Lidocaine 5 % Ointment 35 Gm) 1 appl TOPICAL Q6H PRN PRN Reason: pain d/t fissure, hemorrhoid Last Admin: 10/06/22 11:07 Dose: 1 appl Lisinopril (Lisinopril 20 Mg Tablet) 20 mg PO DAILY [facility]; Protocol Last Admin: 10/06/22 10:27 Dose: Not Given Lorazepam (Lorazepam 1 Mg Tablet) 1 mg PO Q6H PRN PRN Reason: anxiety Last Admin: 10/06/22 01:26 Dose: 1 mg Magnesium Hydroxide (Milk Of Magnesia 30 Ml Oral.Susp) 30 ml PO DAILY PRN PRN Reason: Constipation Melatonin (Melatonin 3 Mg Tablet) 9 mg PO BEDTIME [facility] Last Admin: 10/06/22 01:15 Dose: 9 mg Multivitamins/Vitamin C (Multivitamin Tablet) 1 tab PO DAILY [facility] Last Admin: 10/06/22 10:09 Dose: 1 tab Non-Formulary Medication (Naltrexone Microspheres [Vivitrol]) 380 mg IM Q28D [facility] Nortriptyline HCl (Nortriptyline Hcl 25 Mg Capsule) 50 mg PO BEDTIME [facility] Last Admin: 10/05/22 21:37 Dose: 50 mg Nystatin (Nystatin Powder 15 Gm Bottle) 1 appl TOPICAL BID [facility] Last Admin: 10/06/22 11:07 Dose: 1 appl Omeprazole (Omeprazole 20 Mg Capsule.Dr) 20 mg PO BID@0630,1630 [facility] Last Admin: 10/06/22 10:09 Dose: 20 mg Oxybutynin Chloride (Oxybutynin Chloride Er 5 Mg Tab.Er.24) 10 mg PO DAILY [facility] Last Admin: 10/06/22 10:09 Dose: 10 mg Polyethylene Glycol (Polyethylene Glycol 3350 17 Gm Powd.Pack) 17 gm PO BID@0900,1700 [facility] Last Admin: 10/06/22 10:10 Dose: 17 gm Pramipexole Dihydrochloride (Pramipexole Di-Hcl 0.25 Mg Tablet) 0.25 mg PO TID [facility] Last Admin: 10/06/22 10:10 Dose: 0.25 mg Quetiapine Fumarate (Quetiapine Fumarate 25 Mg Tablet) 25 mg PO BID@0900,1700 [facility] Last Admin: 10/06/22 10:10 Dose: 25 mg Quetiapine Fumarate (Quetiapine Fumarate 100 Mg Tablet) 100 mg PO BEDTIME [facility] Last Admin: 10/05/22 21:38 Dose: 100 mg Tamsulosin HCl (Tamsulosin Hcl 0.4 Mg Capsule) 0.4 mg PO DAILY [facility] Last Admin: 10/06/22 10:09 Dose: 0.4 mg Trazodone HCl (Trazodone Hcl 100 Mg Tablet) 200 mg PO BEDTIME [facility] Last Admin: 10/05/22 21:38 Dose: 200 mg Trazodone HCl (Trazodone Hcl 50 Mg Tablet) 50 mg PO BEDTIME PRN PRN Reason: Insomnia Last Admin: 10/06/22 01:15 Dose: 50 mg Vitamin D (Cholecalciferol (Vitamin D3) 10 Mcg Tablet) 10 mcg PO DAILY [facility] Last Admin: 10/06/22 10:10 Dose: 10 mcg Allergies Allergies Allergy/AdvReac Type Severity Reaction Status Date / Time fentanyl [FENTANYL] Allergy Intermediate unknown Verified 04/08/22 07:00 Assessment & Plan Assessment & Plan (1) Alcohol use disorder, severe, dependence: Status: Acute Code(s): F10.20 - Alcohol dependence, uncomplicated (2) Major depressive disorder, recurrent severe without psychotic features: Status: Acute Code(s): F33.2 - Major depressive disorder, recurrent severe without psychotic features (3) Cognitive and neurobehavioral dysfunction following brain injury: Status: Acute Code(s): G31.89 - Other specified degenerative diseases of nervous system; F09 - Unspecified mental disorder due to known physiological condition; S06.9X9S - Unspecified intracranial injury with loss of consciousness of unspecified duration, sequela Plan Samanta is a 67 y/o male who carries a dx of 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 He is currently wheelchair-bound. Has co-morbid medical dx of seizure disorder, TIA, subdural hematoma, and HTN. He presented to [facility] on 10/03/22 due to SI and aggressive behavior at his long term. Per crisis eval, he was threatening staff at his long term, threatened to cut his throat.?Precipitating fxs include that he believes staff at his long term were stealing ?over $200 from him.? Utox positive for barbituates, ETOH <10, says he has been abstinent. Plan: Pt has vivitrol due 10/08/22. Will add back his Metamucil, miralax, and PRN Colace. Will add melatonin 10 mg HS. Pt willing to trial an increase in his gabapentin to 600 mg TID for neuropathy and anxiety. Q15 min safety checks, CV Monitor response to medications. Monitor for safety in the milieu. Discharge on stabilization. Patient seen. Chart reviewed. Discussed with team. Obtain collateral contact info?as needed I spent ___20___ minutes with the patient and/or on the patient floor today, greater than?50% of which was spent counseling/coordinating care. Reason for contiued inpatient stay Substantial Risk for: inability to function, rapid decompensation and med/psych decompensation
--- NOTE | 2022-10-06 13:28 | MHC.CLN ---
NUTRITION CONSULT FOR POOR APPETITE AND WEIGHT LOSS. PATIENT REPORTS THAT EATS SMALL PORTIONS. REPORTS WEIGHT LOSS X 2 MONTHS OF 10-12#. REVIEW OF WEIGHT HX SHOWS WEIGHT LOSS -4.4% X 1 YEAR. PATIENT DOES NOT WANT NUTRITIONAL SUPPLEMENT. CONCERNED THAT ENSURE HAS A LOT OF FAT. OFFERED ENSURE CLEAR (NO FAT). NO SUPPLEMENT AT THIS TIME PER CONVERSATION. PATIENT ABLE TO MAKE OWN FOOD CHOICES. CONTINUE REGULAR DIET.
[2022-10-06] MEDS: Acetaminophen 325 MG TABLET 650 MG PO (13:56)
[2022-10-06 18:00] VITALS: BP 152/73; PULSE 80; RESP 16; TEMP 36.7; O2SAT 98
[2022-10-06] MEDS: Throat Lozenge, Medicated LOZENGE 1 LOZENGE MUCOUS MEM (18:51)
[2022-10-06] MEDS: traZODone HCL 100 MG TABLET 200 MG PO (20:43)
[2022-10-06] MEDS: Nortriptyline HCl 25 MG CAPSULE 50 MG PO (20:43)
[2022-10-06] MEDS: QUEtiapine Fumarate 100 MG TABLET PO (20:44)
[2022-10-06] MEDS: Latanoprost 0.005 % Ophth Sol 2.5 ML DROPS 1 DROP EYE-BOTH (20:45)
[2022-10-07] MEDS: LORazepam 1 MG TABLET PO ×2 (02:43→13:48)
[2022-10-07] MEDS: hydrOXYzine HCL 25 MG TABLET PO (02:43)
[2022-10-07] MEDS: traZODone HCL 50 MG TABLET PO (02:43)
[2022-10-07 07:30] VITALS: BP 114/73; PULSE 92; RESP 16; TEMP 36.5; O2SAT 94
[2022-10-07 08:26] LABS: Estimated Average Glucose 105 mg/dL; Hemoglobin A1c % 5.3 %
[2022-10-07 08:34] LABS: Alanine Aminotransferase 41 U/L (0-40); Alkaline Phosphatase 78 U/L (39-117); Aspartate Amino Transferase 23 U/L (5-37); Bilirubin Direct < 0.2 mg/dL (0.0-0.5); Bilirubin Total 0.3 mg/dL (0.0-1.0); Gamma Glutamyl Transpeptidase 148 U/L (11-51); Total Protein 6.3 g/dL (6.5-8.0)
[2022-10-07] MEDS: Omeprazole 20 MG CAPSULE.DR PO ×2 (10:20→15:54)
[2022-10-07] MEDS: Pramipexole Di-HCL 0.25 MG TABLET PO ×3 (10:20→22:05)
[2022-10-07] MEDS: Tamsulosin HCL 0.4 MG CAPSULE PO (10:20)
[2022-10-07] MEDS: Finasteride 5 MG TABLET PO (10:20)
[2022-10-07] MEDS: amLODIPine Besylate 5 MG TABLET PO (10:20)
[2022-10-07] MEDS: Multivitamin TABLET 1 TAB PO (10:20)
[2022-10-07] MEDS: Gabapentin 300 MG CAPSULE 600 MG PO ×3 (10:20→22:07)
[2022-10-07] MEDS: lamoTRIgine 100 MG TABLET 200 MG PO ×2 (10:21→22:07)
[2022-10-07] MEDS: polyethylene glycoL 3350 17 GM POWD.PACK PO ×2 (10:22→16:46)
[2022-10-07] MEDS: Cholecalciferol (Vitamin D3) 10 MCG TABLET PO (10:23)
[2022-10-07] MEDS: calcium polycarbophiL TABLET 1 TAB PO (10:23)
[2022-10-07] MEDS: lisinopriL 20 MG TABLET PO (10:23)
[2022-10-07] MEDS: QUEtiapine Fumarate 25 MG TABLET PO (10:26)
[2022-10-07] MEDS: Lidocaine 5 % Ointment 35 GM 1 APPL TOPICAL (11:13)
[2022-10-07] MEDS: Nystatin Powder 15 GM BOTTLE 1 APPL TOPICAL ×2 (11:13→22:52)
--- NOTE | 2022-10-07 16:29 | P.PNPSI_ITS ---
Subjective Subjective Date of Service: 10/07/22 Reason For Visit: Depression aggression Subjective Notes: Conditional Voluntary Guardianship: No Interim History: pt irritable dysphoric reactive Medication Compliance: Yes Attending Groups: Intermittent Review of Systems recent colitis Mental Status Exam Mental Status Exam Patient Appearance: Well Grooomed and Fatigued Patient Orientation: Person, Place and Situation Level of Consciousness: Awake Patient Behavior: Guarded and Passive Mood Description: Withdrawn Affect Description: Constricted Patient Cognition Impaired: Yes Ability to Follow Directions: Good Speech Pattern: Clear Hallucinations: None Delusions: Not Present Thought Process: Linear Thought Content: positive for [place] and positive for Linear Judgement: Fair Judgement and Insight: limited insight regarding his behavoir and impact on others Diagnostics Vital Signs (24Hr): Vital Signs - 24 hr 10/07/22 07:30 10/07/22 18:00 Temperature 97.7 F 97.9 F Pulse Rate 92 80 Respiratory Rate 16 16 Blood Pressure 114/73 135/74 Pulse Oximetry 94 97 Oxygen Delivery Method Room Air Room Air BMI result Body Mass Index 28.8 Labs Results: 10/03/22 19:20 10/03/22 19:19 Labs: Laboratory Results - last 48 hr 10/07/22 10/07/22 07:50 07:50 Estimat Average Glucose 105 Hemoglobin A1c % 5.3 Total Bilirubin 0.3 Direct Bilirubin < 0.2 GGT 148 H AST 23 ALT 41 H Alkaline Phosphatase 78 Total Protein 6.3 L Albumin 4.0 Medications Medications Current Medications Acetaminophen (Acetaminophen 325 Mg Tablet) 650 mg PO Q6H PRN PRN Reason: Headache/Pain Mild Scale (1-3) Last Admin: 10/06/22 13:56 Dose: 650 mg Al Hydroxide/Mg Hydroxide (Magnesium Hydrox/Alum Hydrox 30 Ml Oral.Susp) 30 ml PO Q6H PRN PRN Reason: Heartburn/Nausea Last Admin: 10/04/22 18:10 Dose: 30 ml Albuterol Sulfate (Albuterol Sulfate 90 Mcg 8 Gm Inhaler) 2 puff INHALE Q6H PRN PRN Reason: Wheezing Amlodipine Besylate (Amlodipine Besylate 5 Mg Tablet) 5 mg PO DAILY [facility]; Protocol Last Admin: 10/07/22 10:20 Dose: 5 mg Benzocaine (Throat Lozenge, Medicated Lozenge) 1 lozenge MUCOUS MEM Q2H PRN PRN Reason: Sore Throat Last Admin: 10/06/22 18:51 Dose: 1 lozenge Calcium Polycarbophil (Calcium Polycarbophil Tablet) 1 tab PO DAILY [facility] Last Admin: 10/07/22 10:23 Dose: 1 tab Docusate Sodium (Docusate Sodium 100 Mg Capsule) 100 mg PO DAILY PRN PRN Reason: constipation Last Admin: 10/07/22 22:51 Dose: 100 mg Finasteride (Finasteride 5 Mg Tablet) 5 mg PO DAILY [facility] Last Admin: 10/07/22 10:20 Dose: 5 mg Gabapentin (Gabapentin 300 Mg Capsule) 600 mg PO TID [facility] Last Admin: 10/07/22 22:07 Dose: 600 mg Hydroxyzine HCl (Hydroxyzine Hcl 25 Mg Tablet) 25 mg PO Q6H PRN PRN Reason: Anxiety Last Admin: 10/07/22 02:43 Dose: 25 mg Lamotrigine (Lamotrigine 100 Mg Tablet) 200 mg PO BID [facility] Last Admin: 10/07/22 22:07 Dose: 200 mg Latanoprost (Latanoprost 0.005 % Ophth No 2.5 Ml Drops) 1 drop EYE-BOTH BEDTIME [facility] Last Admin: 10/07/22 22:06 Dose: 1 drop Lidocaine (Lidocaine 5 % Ointment 35 Gm) 1 appl TOPICAL Q6H PRN PRN Reason: pain d/t fissure, hemorrhoid Last Admin: 10/07/22 11:13 Dose: 1 appl Lisinopril (Lisinopril 20 Mg Tablet) 20 mg PO DAILY [facility]; Protocol Last Admin: 10/07/22 10:23 Dose: 20 mg Lorazepam (Lorazepam 1 Mg Tablet) 1 mg PO Q6H PRN PRN Reason: anxiety Last Admin: 10/08/22 01:03 Dose: 1 mg Magnesium Hydroxide (Milk Of Magnesia 30 Ml Oral.Susp) 30 ml PO DAILY PRN PRN Reason: Constipation Melatonin (Melatonin 3 Mg Tablet) 9 mg PO BEDTIME [facility] Last Admin: 10/07/22 22:08 Dose: 9 mg Multivitamins/Vitamin C (Multivitamin Tablet) 1 tab PO DAILY [facility] Last Admin: 10/07/22 10:20 Dose: 1 tab Naltrexone HCl (Naltrexone Hcl 50 Mg Tablet) 50 mg PO DAILY [facility] Nortriptyline HCl (Nortriptyline Hcl 25 Mg Capsule) 50 mg PO BEDTIME [facility] Last Admin: 10/07/22 22:08 Dose: 50 mg Nystatin (Nystatin Powder 15 Gm Bottle) 1 appl TOPICAL BID [facility] Last Admin: 10/07/22 22:52 Dose: 1 appl Omeprazole (Omeprazole 20 Mg Capsule.Dr) 20 mg PO BID@0630,1630 [facility] Last Admin: 10/08/22 06:18 Dose: 20 mg Oxybutynin Chloride (Oxybutynin Chloride Er 5 Mg Tab.Er.24) 10 mg PO DAILY [facility] Last Admin: 10/07/22 10:23 Dose: 10 mg Polyethylene Glycol (Polyethylene Glycol 3350 17 Gm Powd.Pack) 17 gm PO BID@0900,1700 [facility] Last Admin: 10/07/22 16:46 Dose: 17 gm Pramipexole Dihydrochloride (Pramipexole Di-Hcl 0.25 Mg Tablet) 0.25 mg PO TID [facility] Last Admin: 10/07/22 22:05 Dose: 0.25 mg Psyllium Hydrophilic Mucilloid (Psyllium Seed 3.4 Gm Powd.Pack) 3.4 gm PO BEDTIME [facility] Last Admin: 10/07/22 22:52 Dose: 3.4 gm Quetiapine Fumarate (Quetiapine Fumarate 100 Mg Tablet) 100 mg PO BEDTIME [facility] Last Admin: 10/07/22 22:07 Dose: 100 mg Quetiapine Fumarate (Quetiapine Fumarate 50 Mg Tablet) 50 mg PO BID@0900,1700 [facility] Last Admin: 10/07/22 16:47 Dose: 50 mg Tamsulosin HCl (Tamsulosin Hcl 0.4 Mg Capsule) 0.4 mg PO DAILY [facility] Last Admin: 10/07/22 10:20 Dose: 0.4 mg Trazodone HCl (Trazodone Hcl 100 Mg Tablet) 200 mg PO BEDTIME [facility] Last Admin: 10/07/22 22:07 Dose: 200 mg Trazodone HCl (Trazodone Hcl 50 Mg Tablet) 50 mg PO BEDTIME PRN PRN Reason: Insomnia Last Admin: 10/07/22 02:43 Dose: 50 mg Vitamin D (Cholecalciferol (Vitamin D3) 10 Mcg Tablet) 10 mcg PO DAILY [facility] Last Admin: 10/07/22 10:23 Dose: 10 mcg Allergies Allergies Allergy/AdvReac Type Severity Reaction Status Date / Time fentanyl [FENTANYL] Allergy Intermediate unknown Verified 05/24/22 07:00 Assessment & Plan Assessment & Plan (1) Alcohol use disorder, severe, dependence: Status: Acute Code(s): F10.20 - Alcohol dependence, uncomplicated Assessment and Plan: . Plan 1. Start naltrexone 50 mg p.o. daily. 2 increase seroquel 50 bid 100 hs . 3 d/c planning [facility] has not yet called . try and go over response prevention alt when feeling not cared for I spent minutes with the patient and/or on the patient floor today, greater than?50% of which was spent counseling/coordinating care. Reason for contiued inpatient stay Substantial Risk for: harm to others, inability to function and rapid decompensation
[2022-10-07] MEDS: QUEtiapine Fumarate 50 MG TABLET PO (16:47)
--- NOTE | 2022-10-07 17:01 | HO.ADDICTPRO ---
Subjective Subjective Date of Service: 10/07/22 Reason For Visit: Depression Medical Problems Affecting Mental Status: No Interim History: Inpatient hospital admission note reviewed, most recent labs reviewed. Met with patient after receiving addiction consult. Patient currently on geriatric psychiatric unit. Samanta was pleasant upon approach. Reports that there was a mixup with his residential home, they did not start the oral naltrexone that had been ordered several weeks ago by this provider. He states that they needed some form of form faxed to the house prior to being able to hot die picker the medication from pharmacy. Patient reports that he is still very interested in receiving Vivitrol, would like to start oral naltrexone while here. Reviewed process of starting oral naltrexone, to ensure for no adverse events, serious side effects. Discussed process with patient, including receiving oral naltrexone while here in patient. He was informed that a new appointment can be scheduled with [facility] as part of discharge plan, in order to receive Vivitrol injection. He was agreeable to this plan. He states he has continued to remain abstinent from alcohol. Medication Compliance: No (Has been unable to start naltrexone while outpatient.) Review of Systems Medical Review of Systems: unchanged Mental Status Exam Mental Status Exam Patient Appearance: Appropriate Patient Orientation: Person, Place, Time and Situation Patient Behavior: Appropriate Mood Description: Appropriate Affect Description: Appropriate Diagnostics Vital Signs (24Hr): Vital Signs - 24 hr 10/06/22 18:00 10/07/22 07:30 Temperature 98.1 F 97.7 F Pulse Rate 80 92 Respiratory Rate 16 16 Blood Pressure 152/73 H 114/73 Pulse Oximetry 98 94 Oxygen Delivery Method Room Air Room Air BMI result Body Mass Index 28.8 Labs Results: 10/03/22 19:20 10/03/22 19:19 Labs: Laboratory Results - last 48 hr 10/05/22 10/07/22 10/07/22 20:01 07:50 07:50 Estimat Average Glucose 105 Hemoglobin A1c % 5.3 Lactic Acid 1.3 Total Bilirubin 0.3 Direct Bilirubin < 0.2 GGT 148 H AST 23 ALT 41 H Alkaline Phosphatase 78 Total Protein 6.3 L Albumin 4.0 Medications Medications Current Medications Acetaminophen (Acetaminophen 325 Mg Tablet) 650 mg PO Q6H PRN PRN Reason: Headache/Pain Mild Scale (1-3) Last Admin: 10/06/22 13:56 Dose: 650 mg Al Hydroxide/Mg Hydroxide (Magnesium Hydrox/Alum Hydrox 30 Ml Oral.Susp) 30 ml PO Q6H PRN PRN Reason: Heartburn/Nausea Last Admin: 10/04/22 18:10 Dose: 30 ml Albuterol Sulfate (Albuterol Sulfate 90 Mcg 8 Gm Inhaler) 2 puff INHALE Q6H PRN PRN Reason: Wheezing Amlodipine Besylate (Amlodipine Besylate 5 Mg Tablet) 5 mg PO DAILY [facility]; Protocol Last Admin: 10/07/22 10:20 Dose: 5 mg Benzocaine (Throat Lozenge, Medicated Lozenge) 1 lozenge MUCOUS MEM Q2H PRN PRN Reason: Sore Throat Last Admin: 10/06/22 18:51 Dose: 1 lozenge Calcium Polycarbophil (Calcium Polycarbophil Tablet) 1 tab PO DAILY [facility] Last Admin: 10/07/22 10:23 Dose: 1 tab Docusate Sodium (Docusate Sodium 100 Mg Capsule) 100 mg PO DAILY PRN PRN Reason: constipation Finasteride (Finasteride 5 Mg Tablet) 5 mg PO DAILY [facility] Last Admin: 10/07/22 10:20 Dose: 5 mg Gabapentin (Gabapentin 300 Mg Capsule) 600 mg PO TID [facility] Last Admin: 10/07/22 15:54 Dose: 600 mg Hydroxyzine HCl (Hydroxyzine Hcl 25 Mg Tablet) 25 mg PO Q6H PRN PRN Reason: Anxiety Last Admin: 10/07/22 02:43 Dose: 25 mg Lamotrigine (Lamotrigine 100 Mg Tablet) 200 mg PO BID [facility] Last Admin: 10/07/22 10:21 Dose: 200 mg Latanoprost (Latanoprost 0.005 % Ophth No 2.5 Ml Drops) 1 drop EYE-BOTH BEDTIME [facility] Last Admin: 10/06/22 20:45 Dose: 1 drop Lidocaine (Lidocaine 5 % Ointment 35 Gm) 1 appl TOPICAL Q6H PRN PRN Reason: pain d/t fissure, hemorrhoid Last Admin: 10/07/22 11:13 Dose: 1 appl Lisinopril (Lisinopril 20 Mg Tablet) 20 mg PO DAILY [facility]; Protocol Last Admin: 10/07/22 10:23 Dose: 20 mg Lorazepam (Lorazepam 1 Mg Tablet) 1 mg PO Q6H PRN PRN Reason: anxiety Last Admin: 10/07/22 13:48 Dose: 1 mg Magnesium Hydroxide (Milk Of Magnesia 30 Ml Oral.Susp) 30 ml PO DAILY PRN PRN Reason: Constipation Melatonin (Melatonin 3 Mg Tablet) 9 mg PO BEDTIME [facility] Last Admin: 10/06/22 20:44 Dose: 9 mg Multivitamins/Vitamin C (Multivitamin Tablet) 1 tab PO DAILY [facility] Last Admin: 10/07/22 10:20 Dose: 1 tab Naltrexone HCl (Naltrexone Hcl 50 Mg Tablet) 50 mg PO DAILY [facility] Non-Formulary Medication (Naltrexone Microspheres [Vivitrol]) 380 mg IM Q28D [facility] Nortriptyline HCl (Nortriptyline Hcl 25 Mg Capsule) 50 mg PO BEDTIME [facility] Last Admin: 10/06/22 20:43 Dose: 50 mg Nystatin (Nystatin Powder 15 Gm Bottle) 1 appl TOPICAL BID [facility] Last Admin: 10/07/22 11:13 Dose: 1 appl Omeprazole (Omeprazole 20 Mg Capsule.Dr) 20 mg PO BID@0630,1630 [facility] Last Admin: 10/07/22 15:54 Dose: 20 mg Oxybutynin Chloride (Oxybutynin Chloride Er 5 Mg Tab.Er.24) 10 mg PO DAILY [facility] Last Admin: 10/07/22 10:23 Dose: 10 mg Polyethylene Glycol (Polyethylene Glycol 3350 17 Gm Powd.Pack) 17 gm PO BID@0900,1700 [facility] Last Admin: 10/07/22 16:46 Dose: 17 gm Pramipexole Dihydrochloride (Pramipexole Di-Hcl 0.25 Mg Tablet) 0.25 mg PO TID [facility] Last Admin: 10/07/22 15:54 Dose: 0.25 mg Psyllium Hydrophilic Mucilloid (Psyllium Seed 3.4 Gm Powd.Pack) 3.4 gm PO BEDTIME [facility] Quetiapine Fumarate (Quetiapine Fumarate 100 Mg Tablet) 100 mg PO BEDTIME [facility] Last Admin: 10/06/22 20:44 Dose: 100 mg Quetiapine Fumarate (Quetiapine Fumarate 50 Mg Tablet) 50 mg PO BID@0900,1700 [facility] Last Admin: 10/07/22 16:47 Dose: 50 mg Tamsulosin HCl (Tamsulosin Hcl 0.4 Mg Capsule) 0.4 mg PO DAILY [facility] Last Admin: 10/07/22 10:20 Dose: 0.4 mg Trazodone HCl (Trazodone Hcl 100 Mg Tablet) 200 mg PO BEDTIME [facility] Last Admin: 10/06/22 20:43 Dose: 200 mg Trazodone HCl (Trazodone Hcl 50 Mg Tablet) 50 mg PO BEDTIME PRN PRN Reason: Insomnia Last Admin: 10/07/22 02:43 Dose: 50 mg Vitamin D (Cholecalciferol (Vitamin D3) 10 Mcg Tablet) 10 mcg PO DAILY [facility] Last Admin: 10/07/22 10:23 Dose: 10 mcg Allergies Allergies Allergy/AdvReac Type Severity Reaction Status Date / Time fentanyl [FENTANYL] Allergy Intermediate unknown Verified 04/08/22 07:00 Assessment & Plan Assessment & Plan (1) Alcohol use disorder, severe, dependence: Status: Acute Code(s): F10.20 - Alcohol dependence, uncomplicated Assessment and Plan: Met with patient to discuss naltrexone oral, Vivitrol. Patient has been unable to start oral naltrexone. Due to mixup with house where he resides. Discussed medication with patient today. He is agreeable to starting oral naltrexone at this time. It was explained that Vivitrol cannot be administered without 1st a trial of oral naltrexone. He was in agreement with this plan. Plan 1. Start naltrexone 50 mg p.o. daily. 2. Hold Vivitrol at this time. This has been conveyed to provider Dr. Addy Haskins. I spent minutes with the patient and/or on the patient floor today, greater than?50% of which was spent counseling/coordinating care. Education Patient educated on: diagnosis, medication risk/benefits and substance abuse Informed Consent: understands
[2022-10-07 18:00] VITALS: BP 135/74; PULSE 80; RESP 16; TEMP 36.6; O2SAT 97
[2022-10-07] MEDS: Latanoprost 0.005 % Ophth Sol 2.5 ML DROPS 1 DROP EYE-BOTH (22:06)
[2022-10-07] MEDS: QUEtiapine Fumarate 100 MG TABLET PO (22:07)
[2022-10-07] MEDS: traZODone HCL 100 MG TABLET 200 MG PO (22:07)
[2022-10-07] MEDS: Melatonin 3 MG TABLET 9 MG PO (22:08)
[2022-10-07] MEDS: Nortriptyline HCl 25 MG CAPSULE 50 MG PO (22:08)
[2022-10-07] MEDS: Docusate Sodium 100 MG CAPSULE PO (22:51)
[2022-10-08] MEDS: LORazepam 1 MG TABLET PO ×3 (01:03→16:12)
[2022-10-08] MEDS: Omeprazole 20 MG CAPSULE.DR PO ×2 (06:18→18:01)
--- NOTE | 2022-10-08 06:22 | PC.NURSE ---
Pt verbally assaulting staff, racial comments towards staff, manipulative, staff splitting, and accusatory during this shift.
[2022-10-08 08:05] VITALS: BP 152/77; PULSE 72; TEMP 36.2; O2SAT 97
--- NOTE | 2022-10-08 10:09 | HO.PSYCHPN ---
Subjective Subjective Date of Service: 10/08/22 Reason For Visit: Depression aggression Subjective Notes: Conditional Voluntary Interim History: Pt depressed irritable withdrawn c/o pain under buttocks limited insight Medication Compliance: Yes Side effects from medications: No Mental Status Exam Mental Status Exam Patient Appearance: Well Grooomed Patient Orientation: Person, Place and Situation Level of Consciousness: Awake Patient Behavior: Cooperative Mood Description: Withdrawn Affect Description: Constricted Patient Cognition Impaired: Yes Ability to Follow Directions: Good Speech Pattern: Clear Hallucinations: None Delusions: Not Present Thought Process: Linear Thought Content: positive for Goal Oriented Depressive Symptoms: Increased Irritability, Unhappiness and Thoughts of /Suicide Judgement: Fair Diagnostics Vital Signs (24Hr): Vital Signs - 24 hr 10/07/22 18:00 10/08/22 08:05 Temperature 97.9 F 97.2 F Pulse Rate 80 72 Respiratory Rate 16 Blood Pressure 135/74 152/77 H Pulse Oximetry 97 97 Oxygen Delivery Method Room Air Room Air BMI result Body Mass Index 28.8 Labs Results: 10/03/22 19:20 10/03/22 19:19 Labs: Laboratory Results - last 48 hr 10/07/22 10/07/22 07:50 07:50 Estimat Average Glucose 105 Hemoglobin A1c % 5.3 Total Bilirubin 0.3 Direct Bilirubin < 0.2 GGT 148 H AST 23 ALT 41 H Alkaline Phosphatase 78 Total Protein 6.3 L Albumin 4.0 Medications Medications Current Medications Acetaminophen (Acetaminophen 325 Mg Tablet) 650 mg PO Q6H PRN PRN Reason: Headache/Pain Mild Scale (1-3) Last Admin: 10/06/22 13:56 Dose: 650 mg Al Hydroxide/Mg Hydroxide (Magnesium Hydrox/Alum Hydrox 30 Ml Oral.Susp) 30 ml PO Q6H PRN PRN Reason: Heartburn/Nausea Last Admin: 10/04/22 18:10 Dose: 30 ml Albuterol Sulfate (Albuterol Sulfate 90 Mcg 8 Gm Inhaler) 2 puff INHALE Q6H PRN PRN Reason: Wheezing Amlodipine Besylate (Amlodipine Besylate 5 Mg Tablet) 5 mg PO DAILY [facility]; Protocol Last Admin: 10/07/22 10:20 Dose: 5 mg Benzocaine (Throat Lozenge, Medicated Lozenge) 1 lozenge MUCOUS MEM Q2H PRN PRN Reason: Sore Throat Last Admin: 10/06/22 18:51 Dose: 1 lozenge Calcium Polycarbophil (Calcium Polycarbophil Tablet) 1 tab PO DAILY [facility] Last Admin: 10/07/22 10:23 Dose: 1 tab Docusate Sodium (Docusate Sodium 100 Mg Capsule) 100 mg PO DAILY PRN PRN Reason: constipation Last Admin: 10/07/22 22:51 Dose: 100 mg Finasteride (Finasteride 5 Mg Tablet) 5 mg PO DAILY [facility] Last Admin: 10/07/22 10:20 Dose: 5 mg Gabapentin (Gabapentin 300 Mg Capsule) 600 mg PO TID [facility] Last Admin: 10/07/22 22:07 Dose: 600 mg Hydroxyzine HCl (Hydroxyzine Hcl 25 Mg Tablet) 25 mg PO Q6H PRN PRN Reason: Anxiety Last Admin: 10/07/22 02:43 Dose: 25 mg Lamotrigine (Lamotrigine 100 Mg Tablet) 200 mg PO BID [facility] Last Admin: 10/07/22 22:07 Dose: 200 mg Latanoprost (Latanoprost 0.005 % Ophth No 2.5 Ml Drops) 1 drop EYE-BOTH BEDTIME [facility] Last Admin: 10/07/22 22:06 Dose: 1 drop Lidocaine (Lidocaine 5 % Ointment 35 Gm) 1 appl TOPICAL Q6H PRN PRN Reason: pain d/t fissure, hemorrhoid Last Admin: 10/07/22 11:13 Dose: 1 appl Lisinopril (Lisinopril 20 Mg Tablet) 20 mg PO DAILY [facility]; Protocol Last Admin: 10/07/22 10:23 Dose: 20 mg Lorazepam (Lorazepam 1 Mg Tablet) 1 mg PO Q6H PRN PRN Reason: anxiety Last Admin: 10/08/22 01:03 Dose: 1 mg Magnesium Hydroxide (Milk Of Magnesia 30 Ml Oral.Susp) 30 ml PO DAILY PRN PRN Reason: Constipation Melatonin (Melatonin 3 Mg Tablet) 9 mg PO BEDTIME [facility] Last Admin: 10/07/22 22:08 Dose: 9 mg Multivitamins/Vitamin C (Multivitamin Tablet) 1 tab PO DAILY [facility] Last Admin: 10/07/22 10:20 Dose: 1 tab Naltrexone HCl (Naltrexone Hcl 50 Mg Tablet) 50 mg PO DAILY [facility] Nortriptyline HCl (Nortriptyline Hcl 25 Mg Capsule) 50 mg PO BEDTIME [facility] Last Admin: 10/07/22 22:08 Dose: 50 mg Nystatin (Nystatin Powder 15 Gm Bottle) 1 appl TOPICAL BID [facility] Last Admin: 10/07/22 22:52 Dose: 1 appl Omeprazole (Omeprazole 20 Mg Capsule.Dr) 20 mg PO BID@0630,1630 [facility] Last Admin: 10/08/22 06:18 Dose: 20 mg Oxybutynin Chloride (Oxybutynin Chloride Er 5 Mg Tab.Er.24) 10 mg PO DAILY [facility] Last Admin: 10/07/22 10:23 Dose: 10 mg Polyethylene Glycol (Polyethylene Glycol 3350 17 Gm Powd.Pack) 17 gm PO BID@0900,1700 [facility] Last Admin: 10/07/22 16:46 Dose: 17 gm Pramipexole Dihydrochloride (Pramipexole Di-Hcl 0.25 Mg Tablet) 0.25 mg PO TID [facility] Last Admin: 10/07/22 22:05 Dose: 0.25 mg Psyllium Hydrophilic Mucilloid (Psyllium Seed 3.4 Gm Powd.Pack) 3.4 gm PO BEDTIME [facility] Last Admin: 10/07/22 22:52 Dose: 3.4 gm Quetiapine Fumarate (Quetiapine Fumarate 100 Mg Tablet) 100 mg PO BEDTIME [facility] Last Admin: 10/07/22 22:07 Dose: 100 mg Quetiapine Fumarate (Quetiapine Fumarate 50 Mg Tablet) 50 mg PO BID@0900,1700 [facility] Last Admin: 10/07/22 16:47 Dose: 50 mg Tamsulosin HCl (Tamsulosin Hcl 0.4 Mg Capsule) 0.4 mg PO DAILY [facility] Last Admin: 10/07/22 10:20 Dose: 0.4 mg Trazodone HCl (Trazodone Hcl 100 Mg Tablet) 200 mg PO BEDTIME [facility] Last Admin: 10/07/22 22:07 Dose: 200 mg Trazodone HCl (Trazodone Hcl 50 Mg Tablet) 50 mg PO BEDTIME PRN PRN Reason: Insomnia Last Admin: 10/07/22 02:43 Dose: 50 mg Vitamin D (Cholecalciferol (Vitamin D3) 10 Mcg Tablet) 10 mcg PO DAILY [facility] Last Admin: 10/07/22 10:23 Dose: 10 mcg Allergies Allergies Allergy/AdvReac Type Severity Reaction Status Date / Time fentanyl [FENTANYL] Allergy Intermediate unknown Verified 04/08/22 07:00 Assessment & Plan Assessment & Plan (1) Alcohol use disorder, severe, dependence: Status: Acute Code(s): F10.20 - Alcohol dependence, uncomplicated Assessment and Plan: . Plan 1. Start naltrexone 50 mg p.o. daily. 2 increase seroquel 50 bid 100 hs . 3 d/c planning [facility] not yet called . try and go over response prevention alt when feeling not cared for 10/08/22 Pt depressed irritanble limited judgement re his behavoir I spent minutes with the patient and/or on the patient floor today, greater than?50% of which was spent counseling/coordinating care. Reason for contiued inpatient stay Substantial Risk for: harm to self, harm to others and rapid decompensation
[2022-10-08] MEDS: Naltrexone HCl 50 MG TABLET PO (10:13)
[2022-10-08] MEDS: Cholecalciferol (Vitamin D3) 10 MCG TABLET PO (10:13)
[2022-10-08] MEDS: calcium polycarbophiL TABLET 1 TAB PO (10:13)
[2022-10-08] MEDS: lisinopriL 20 MG TABLET PO (10:14)
[2022-10-08] MEDS: lamoTRIgine 100 MG TABLET 200 MG PO ×2 (10:15→21:30)
[2022-10-08] MEDS: Finasteride 5 MG TABLET PO (10:15)
[2022-10-08] MEDS: Gabapentin 300 MG CAPSULE 600 MG PO ×3 (10:15→21:28)
[2022-10-08] MEDS: Tamsulosin HCL 0.4 MG CAPSULE PO (10:16)
[2022-10-08] MEDS: Pramipexole Di-HCL 0.25 MG TABLET PO ×3 (10:16→21:31)
[2022-10-08] MEDS: amLODIPine Besylate 5 MG TABLET PO (10:16)
[2022-10-08] MEDS: QUEtiapine Fumarate 50 MG TABLET PO ×2 (10:17→18:03)
[2022-10-08] MEDS: Multivitamin TABLET 1 TAB PO (10:17)
[2022-10-08] MEDS: Nystatin Powder 15 GM BOTTLE 1 APPL TOPICAL ×2 (10:27→21:35)
[2022-10-08] MEDS: Acetaminophen 325 MG TABLET 650 MG PO (14:33)
[2022-10-08] MEDS: Lidocaine 5 % Ointment 35 GM 1 APPL TOPICAL ×2 (16:49→21:34)
[2022-10-08 18:00] VITALS: BP 169/75; PULSE 88; RESP 15; TEMP 36.4; O2SAT 97
[2022-10-08] MEDS: polyethylene glycoL 3350 17 GM POWD.PACK PO (18:01)
[2022-10-08] MEDS: hydrOXYzine HCL 25 MG TABLET PO (21:30)
[2022-10-08] MEDS: Melatonin 3 MG TABLET 9 MG PO (21:31)
[2022-10-08] MEDS: traZODone HCL 100 MG TABLET 200 MG PO (21:32)
[2022-10-08] MEDS: QUEtiapine Fumarate 100 MG TABLET PO (21:34)
[2022-10-08] MEDS: Nortriptyline HCl 25 MG CAPSULE 50 MG PO (21:43)
[2022-10-08] MEDS: Latanoprost 0.005 % Ophth Sol 2.5 ML DROPS 1 DROP EYE-BOTH (21:43)
[2022-10-09] MEDS: traZODone HCL 50 MG TABLET PO (01:23)
[2022-10-09 06:00] VITALS: BP 122/69; PULSE 71; TEMP 36.1; O2SAT 98
[2022-10-09] MEDS: amLODIPine Besylate 5 MG TABLET PO (08:55)
[2022-10-09] MEDS: Pramipexole Di-HCL 0.25 MG TABLET PO ×3 (08:55→22:14)
[2022-10-09] MEDS: QUEtiapine Fumarate 50 MG TABLET PO ×2 (08:56→17:27)
[2022-10-09] MEDS: Gabapentin 300 MG CAPSULE 600 MG PO ×3 (08:56→22:15)
[2022-10-09] MEDS: Multivitamin TABLET 1 TAB PO (08:56)
[2022-10-09] MEDS: lisinopriL 20 MG TABLET PO (08:56)
[2022-10-09] MEDS: lamoTRIgine 100 MG TABLET 200 MG PO ×2 (08:56→22:14)
[2022-10-09] MEDS: Naltrexone HCl 50 MG TABLET PO (08:56)
[2022-10-09] MEDS: calcium polycarbophiL TABLET 1 TAB PO (08:57)
[2022-10-09] MEDS: Tamsulosin HCL 0.4 MG CAPSULE PO (08:57)
[2022-10-09] MEDS: Finasteride 5 MG TABLET PO (08:58)
[2022-10-09] MEDS: Omeprazole 20 MG CAPSULE.DR PO ×2 (08:58→17:26)
[2022-10-09] MEDS: Cholecalciferol (Vitamin D3) 10 MCG TABLET PO (08:58)
[2022-10-09] MEDS: polyethylene glycoL 3350 17 GM POWD.PACK PO ×2 (09:09→17:27)
--- NOTE | 2022-10-09 10:21 | HO.PSYCHPN ---
Subjective Subjective Date of Service: 10/09/22 Reason For Visit: Depression aggression Subjective Notes: Conditional Voluntary Interim History: The nursing staff reported the patient had been compliant with treatment, he slept well last night. He stated that he has been depressed. On interview we discussed the results of his GGT and explained that it was 3 fold, compatible with active alcohol use disorder. Yesterday, the team came and assessed him for treatment of alcohol use disorder and naltrexone was started. So far no side effects. Mental Status Exam Mental Status Exam Patient Appearance: Well Grooomed Patient Orientation: Person and Situation Level of Consciousness: Awake Patient Behavior: Cooperative Mood Description: Withdrawn Affect Description: Constricted Patient Cognition Impaired: Yes Ability to Follow Directions: Good Speech Pattern: Clear Hallucinations: None Delusions: Not Present Thought Process: Linear Thought Content: positive for Goal Oriented Judgement: Fair Diagnostics Vital Signs (24Hr): Vital Signs - 24 hr 10/08/22 18:00 Temperature 97.6 F Pulse Rate 88 Respiratory Rate 15 Blood Pressure 169/75 H Pulse Oximetry 97 Oxygen Delivery Method Room Air BMI result Body Mass Index 28.8 Labs Results: 10/03/22 19:20 10/03/22 19:19 Medications Medications Current Medications Acetaminophen (Acetaminophen 325 Mg Tablet) 650 mg PO Q6H PRN PRN Reason: Headache/Pain Mild Scale (1-3) Last Admin: 10/08/22 14:33 Dose: 650 mg Al Hydroxide/Mg Hydroxide (Magnesium Hydrox/Alum Hydrox 30 Ml Oral.Susp) 30 ml PO Q6H PRN PRN Reason: Heartburn/Nausea Last Admin: 10/04/22 18:10 Dose: 30 ml Albuterol Sulfate (Albuterol Sulfate 90 Mcg 8 Gm Inhaler) 2 puff INHALE Q6H PRN PRN Reason: Wheezing Amlodipine Besylate (Amlodipine Besylate 5 Mg Tablet) 5 mg PO DAILY [facility]; Protocol Last Admin: 10/09/22 08:55 Dose: 5 mg Benzocaine (Throat Lozenge, Medicated Lozenge) 1 lozenge MUCOUS MEM Q2H PRN PRN Reason: Sore Throat Last Admin: 10/06/22 18:51 Dose: 1 lozenge Calcium Polycarbophil (Calcium Polycarbophil Tablet) 1 tab PO DAILY [facility] Last Admin: 10/09/22 08:57 Dose: 1 tab Docusate Sodium (Docusate Sodium 100 Mg Capsule) 100 mg PO DAILY PRN PRN Reason: constipation Last Admin: 10/07/22 22:51 Dose: 100 mg Finasteride (Finasteride 5 Mg Tablet) 5 mg PO DAILY [facility] Last Admin: 10/09/22 08:58 Dose: 5 mg Gabapentin (Gabapentin 300 Mg Capsule) 600 mg PO TID [facility] Last Admin: 10/09/22 08:56 Dose: 600 mg Hydroxyzine HCl (Hydroxyzine Hcl 25 Mg Tablet) 25 mg PO Q6H PRN PRN Reason: Anxiety Last Admin: 10/08/22 21:30 Dose: 25 mg Lamotrigine (Lamotrigine 100 Mg Tablet) 200 mg PO BID [facility] Last Admin: 10/09/22 08:56 Dose: 200 mg Latanoprost (Latanoprost 0.005 % Ophth No 2.5 Ml Drops) 1 drop EYE-BOTH BEDTIME [facility] Last Admin: 10/08/22 21:43 Dose: 1 drop Lidocaine (Lidocaine 5 % Ointment 35 Gm) 1 appl TOPICAL Q6H PRN PRN Reason: pain d/t fissure, hemorrhoid Last Admin: 10/08/22 21:34 Dose: 1 appl Lisinopril (Lisinopril 20 Mg Tablet) 20 mg PO DAILY [facility]; Protocol Last Admin: 10/09/22 08:56 Dose: 20 mg Lorazepam (Lorazepam 0.5 Mg Tablet) 0.5 mg PO BID PRN PRN Reason: Anxiety Magnesium Hydroxide (Milk Of Magnesia 30 Ml Oral.Susp) 30 ml PO DAILY PRN PRN Reason: Constipation Melatonin (Melatonin 3 Mg Tablet) 9 mg PO BEDTIME [facility] Last Admin: 10/08/22 21:31 Dose: 9 mg Multivitamins/Vitamin C (Multivitamin Tablet) 1 tab PO DAILY [facility] Last Admin: 10/09/22 08:56 Dose: 1 tab Naltrexone HCl (Naltrexone Hcl 50 Mg Tablet) 50 mg PO DAILY [facility] Last Admin: 10/09/22 08:56 Dose: 50 mg Nortriptyline HCl (Nortriptyline Hcl 25 Mg Capsule) 50 mg PO BEDTIME [facility] Last Admin: 10/08/22 21:43 Dose: 50 mg Nystatin (Nystatin Powder 15 Gm Bottle) 1 appl TOPICAL BID [facility] Last Admin: 10/09/22 10:12 Dose: Not Given Omeprazole (Omeprazole 20 Mg Capsule.Dr) 20 mg PO BID@0630,1630 [facility] Last Admin: 10/09/22 08:58 Dose: 20 mg Oxybutynin Chloride (Oxybutynin Chloride Er 5 Mg Tab.Er.24) 10 mg PO DAILY [facility] Last Admin: 10/09/22 08:57 Dose: 10 mg Polyethylene Glycol (Polyethylene Glycol 3350 17 Gm Powd.Pack) 17 gm PO BID@0900,1700 [facility] Last Admin: 10/09/22 09:09 Dose: 17 gm Pramipexole Dihydrochloride (Pramipexole Di-Hcl 0.25 Mg Tablet) 0.25 mg PO TID [facility] Last Admin: 10/09/22 08:55 Dose: 0.25 mg Psyllium Hydrophilic Mucilloid (Psyllium Seed 3.4 Gm Powd.Pack) 3.4 gm PO BEDTIME [facility] Last Admin: 10/08/22 21:46 Dose: Not Given Quetiapine Fumarate (Quetiapine Fumarate 100 Mg Tablet) 100 mg PO BEDTIME [facility] Last Admin: 10/08/22 21:34 Dose: 100 mg Quetiapine Fumarate (Quetiapine Fumarate 50 Mg Tablet) 50 mg PO BID@0900,1700 [facility] Last Admin: 10/09/22 08:56 Dose: 50 mg Tamsulosin HCl (Tamsulosin Hcl 0.4 Mg Capsule) 0.4 mg PO DAILY [facility] Last Admin: 10/09/22 08:57 Dose: 0.4 mg Trazodone HCl (Trazodone Hcl 100 Mg Tablet) 200 mg PO BEDTIME [facility] Last Admin: 10/08/22 21:32 Dose: 200 mg Trazodone HCl (Trazodone Hcl 50 Mg Tablet) 50 mg PO BEDTIME PRN PRN Reason: Insomnia Last Admin: 10/09/22 01:23 Dose: 50 mg Vitamin D (Cholecalciferol (Vitamin D3) 10 Mcg Tablet) 10 mcg PO DAILY [facility] Last Admin: 10/09/22 08:58 Dose: 10 mcg Allergies Allergies Allergy/AdvReac Type Severity Reaction Status Date / Time fentanyl [FENTANYL] Allergy Intermediate unknown Verified 04/08/22 07:00 Assessment & Plan Assessment & Plan (1) Alcohol use disorder, severe, dependence: Status: Acute Code(s): F10.20 - Alcohol dependence, uncomplicated Assessment and Plan: . Plan 1. Start naltrexone 50 mg p.o. daily. 2 increase seroquel 50 bid 100 hs . 3 d/c planning [facility] has not yet called . try and go over response prevention alt when feeling not cared for I spent __20____ minutes with the patient and/or on the patient floor today, greater than?50% of which was spent counseling/coordinating care. Reason for contiued inpatient stay Substantial Risk for: inability to function, rapid decompensation and med/psych decompensation
[2022-10-09] MEDS: Acetaminophen 325 MG TABLET 650 MG PO ×2 (13:06→19:51)
[2022-10-09] MEDS: LORazepam 0.5 MG TABLET PO (13:07)
[2022-10-09 18:00] VITALS: BP 147/76; PULSE 71; RESP 18; TEMP 36.2; O2SAT 97
[2022-10-09] MEDS: Melatonin 3 MG TABLET 9 MG PO (22:14)
[2022-10-09] MEDS: traZODone HCL 100 MG TABLET 200 MG PO (22:14)
[2022-10-09] MEDS: Docusate Sodium 100 MG CAPSULE PO (22:14)
[2022-10-09] MEDS: Nortriptyline HCl 25 MG CAPSULE 50 MG PO (22:14)
[2022-10-09] MEDS: hydrOXYzine HCL 25 MG TABLET PO (22:15)
[2022-10-09] MEDS: QUEtiapine Fumarate 100 MG TABLET PO (22:15)
[2022-10-09] MEDS: Latanoprost 0.005 % Ophth Sol 2.5 ML DROPS 1 DROP EYE-BOTH (22:16)
[2022-10-09] MEDS: Nystatin Powder 15 GM BOTTLE 1 APPL TOPICAL (22:31)
[2022-10-09] MEDS: Lidocaine 5 % Ointment 35 GM 1 APPL TOPICAL (22:39)
[2022-10-10] MEDS: traZODone HCL 50 MG TABLET PO (00:37)
[2022-10-10] MEDS: LORazepam 0.5 MG TABLET PO ×2 (00:37→15:30)
[2022-10-10] MEDS: Omeprazole 20 MG CAPSULE.DR PO ×2 (06:16→15:30)
[2022-10-10 07:30] VITALS: BP 123/61; PULSE 101; RESP 15; TEMP 36.4; O2SAT 94
[2022-10-10] MEDS: Finasteride 5 MG TABLET PO (09:22)
[2022-10-10] MEDS: Multivitamin TABLET 1 TAB PO (09:22)
[2022-10-10] MEDS: Gabapentin 300 MG CAPSULE 600 MG PO ×3 (09:23→20:07)
[2022-10-10] MEDS: lamoTRIgine 100 MG TABLET 200 MG PO ×2 (09:23→20:08)
[2022-10-10] MEDS: Tamsulosin HCL 0.4 MG CAPSULE PO (09:23)
[2022-10-10] MEDS: Pramipexole Di-HCL 0.25 MG TABLET PO ×3 (09:23→20:08)
[2022-10-10] MEDS: QUEtiapine Fumarate 50 MG TABLET PO ×2 (09:23→17:04)
[2022-10-10] MEDS: calcium polycarbophiL TABLET 1 TAB PO (09:24)
[2022-10-10] MEDS: polyethylene glycoL 3350 17 GM POWD.PACK PO ×2 (09:24→17:04)
[2022-10-10] MEDS: Naltrexone HCl 50 MG TABLET PO (09:24)
[2022-10-10] MEDS: Cholecalciferol (Vitamin D3) 10 MCG TABLET PO (09:24)
[2022-10-10] MEDS: lisinopriL 20 MG TABLET PO (09:33)
[2022-10-10] MEDS: amLODIPine Besylate 5 MG TABLET PO (09:33)
[2022-10-10] MEDS: Acetaminophen 325 MG TABLET 650 MG PO (10:44)
[2022-10-10] MEDS: Lidocaine 5 % Ointment 35 GM 1 APPL TOPICAL ×2 (10:49→18:25)
[2022-10-10 18:00] VITALS: BP 135/71; PULSE 72; RESP 16; TEMP 36.3; O2SAT 95
[2022-10-10] MEDS: Latanoprost 0.005 % Ophth Sol 2.5 ML DROPS 1 DROP EYE-BOTH (20:06)
[2022-10-10] MEDS: Nystatin Powder 15 GM BOTTLE 1 APPL TOPICAL (20:06)
[2022-10-10] MEDS: Nortriptyline HCl 25 MG CAPSULE 50 MG PO (20:07)
[2022-10-10] MEDS: Melatonin 3 MG TABLET 9 MG PO (20:07)
[2022-10-10] MEDS: QUEtiapine Fumarate 100 MG TABLET PO (20:09)
[2022-10-10] MEDS: traZODone HCL 100 MG TABLET 200 MG PO (20:34)
[2022-10-11] MEDS: traZODone HCL 50 MG TABLET PO (02:46)
[2022-10-11] MEDS: hydrOXYzine HCL 25 MG TABLET PO (02:46)
[2022-10-11] MEDS: Finasteride 5 MG TABLET PO (08:56)
[2022-10-11] MEDS: Naltrexone HCl 50 MG TABLET PO (08:56)
[2022-10-11] MEDS: Gabapentin 300 MG CAPSULE 600 MG PO ×3 (08:57→20:24)
[2022-10-11] MEDS: calcium polycarbophiL TABLET 1 TAB PO (08:57)
[2022-10-11] MEDS: lisinopriL 20 MG TABLET PO (08:57)
[2022-10-11] MEDS: lamoTRIgine 100 MG TABLET 200 MG PO ×2 (08:57→20:23)
[2022-10-11] MEDS: amLODIPine Besylate 5 MG TABLET PO (08:57)
[2022-10-11] MEDS: Tamsulosin HCL 0.4 MG CAPSULE PO (08:58)
[2022-10-11] MEDS: Pramipexole Di-HCL 0.25 MG TABLET PO ×3 (08:58→20:25)
[2022-10-11] MEDS: QUEtiapine Fumarate 50 MG TABLET PO (08:58)
[2022-10-11] MEDS: Cholecalciferol (Vitamin D3) 10 MCG TABLET PO (08:58)
[2022-10-11] MEDS: Multivitamin TABLET 1 TAB PO (08:58)
[2022-10-11] MEDS: Docusate Sodium 100 MG CAPSULE PO (09:05)
[2022-10-11] MEDS: Acetaminophen 325 MG TABLET 650 MG PO (09:05)
[2022-10-11] MEDS: LORazepam 0.5 MG TABLET PO (09:19)
--- NOTE | 2022-10-11 10:37 | HO.PSYCHPN ---
Subjective Subjective Date of Service: 10/11/22 Reason For Visit: Depression aggression Subjective Notes: Conditional Voluntary Interim History: Pt endorses feeling depressed, hopeless. He reports passive suicidal ideation stating I wouldn't do it here, I like most of the staff here. He goes on about being disappointed as he perceives quality of care on the unit has decreased as he states they are not offering me dressing for wound on the back. He states he not getting enough attention at times. He reports sleeping and eating well. No behavioral concerns. Medication Compliance: Yes Side effects from medications: No Attending Groups: No Review of Systems Review of Systems Constitutional: No Fever, No Chills ENT/Mouth: No sore throat, No Rhinorrhea, No Swallowing Difficulty Cardiovascular: No Chest Pain, No SOB Respiratory: No Cough, No Sputum, No Wheezing, No dyspnea Gastrointestinal: No Nausea, No Vomiting, No Diarrhea, No abdominal Pain Genitourinary: No Dysuria, No Urinary Frequency, No Hematuria Musculoskeletal: No joint pain, No Myalgias Skin: No Skin Lesions, No rash Neuro: No Weakness, No Numbness, No Dizziness, No Headache Psych: No Anxiety/Panic, No Depression Heme/Lymph: No Bruising, No Lymphadenopathy Mental Status Exam Mental Status Exam Narrative: Patient Appearance: Appropriate Patient Orientation: Person, Place, Time and Situation Level of Consciousness: Awake Patient Behavior: Cooperative Mood Description: Withdrawn, Anxious and Apprehensive Affect Description: Anxious, Labile and Apprehensive Ability to Follow Directions: Good Speech Pattern: Clear Memory Description: Episodic Impaired Hallucinations: None Delusions: Not Present Thought Process: Rumination and Linear Thought Content: positive for Circumstantial, negative for Suicidal Ideation or negative for Homicidal Ideation Depressive Symptoms: Increased Irritability Judgement: Fair Diagnostics Vital Signs (24Hr): Vital Signs - 24 hr 10/12/22 06:00 10/12/22 18:00 Temperature 97.1 F 97.1 F Pulse Rate 70 78 Respiratory Rate 17 16 Blood Pressure 163/80 H 112/64 Pulse Oximetry 94 95 Oxygen Delivery Method Room Air Room Air BMI result Body Mass Index 28.8 Labs Results: 10/03/22 19:20 10/03/22 19:19 Labs: Laboratory Results - last 48 hr 10/07/22 07:50 Lamotrigine 7.1 Nortriptyline 22 L Medications Medications Current Medications Acetaminophen (Acetaminophen 325 Mg Tablet) 650 mg PO Q6H PRN PRN Reason: Headache/Pain Mild Scale (1-3) Last Admin: 10/12/22 22:07 Dose: 650 mg Al Hydroxide/Mg Hydroxide (Magnesium Hydrox/Alum Hydrox 30 Ml Oral.Susp) 30 ml PO Q6H PRN PRN Reason: Heartburn/Nausea Last Admin: 10/04/22 18:10 Dose: 30 ml Albuterol Sulfate (Albuterol Sulfate 90 Mcg 8 Gm Inhaler) 2 puff INHALE Q6H PRN PRN Reason: Wheezing Amlodipine Besylate (Amlodipine Besylate 5 Mg Tablet) 5 mg PO DAILY [facility]; Protocol Last Admin: 10/12/22 10:04 Dose: 5 mg Benzocaine (Throat Lozenge, Medicated Lozenge) 1 lozenge MUCOUS MEM Q2H PRN PRN Reason: Sore Throat Last Admin: 10/06/22 18:51 Dose: 1 lozenge Calcium Polycarbophil (Calcium Polycarbophil Tablet) 1 tab PO DAILY [facility] Last Admin: 10/12/22 10:02 Dose: 1 tab Docusate Sodium (Docusate Sodium 100 Mg Capsule) 100 mg PO DAILY PRN PRN Reason: constipation Last Admin: 10/12/22 22:05 Dose: 100 mg Finasteride (Finasteride 5 Mg Tablet) 5 mg PO DAILY [facility] Last Admin: 10/12/22 10:03 Dose: 5 mg Gabapentin (Gabapentin 300 Mg Capsule) 600 mg PO TID [facility] Last Admin: 10/12/22 22:07 Dose: 600 mg Hydroxyzine HCl (Hydroxyzine Hcl 25 Mg Tablet) 25 mg PO Q6H PRN PRN Reason: Anxiety Last Admin: 10/11/22 02:46 Dose: 25 mg Lamotrigine (Lamotrigine 100 Mg Tablet) 200 mg PO BID [facility] Last Admin: 10/12/22 22:06 Dose: 200 mg Latanoprost (Latanoprost 0.005 % Ophth No 2.5 Ml Drops) 1 drop EYE-BOTH BEDTIME [facility] Last Admin: 10/12/22 22:05 Dose: 1 drop Lidocaine (Lidocaine 5 % Ointment 35 Gm) 1 appl TOPICAL Q6H PRN PRN Reason: pain d/t fissure, hemorrhoid Last Admin: 10/12/22 22:05 Dose: 1 appl Lisinopril (Lisinopril 20 Mg Tablet) 20 mg PO DAILY [facility]; Protocol Last Admin: 10/12/22 10:04 Dose: 20 mg Lorazepam (Lorazepam 0.5 Mg Tablet) 0.5 mg PO BID PRN PRN Reason: Anxiety Last Admin: 10/13/22 00:24 Dose: 0.5 mg Magnesium Hydroxide (Milk Of Magnesia 30 Ml Oral.Susp) 30 ml PO DAILY PRN PRN Reason: Constipation Melatonin (Melatonin 3 Mg Tablet) 9 mg PO BEDTIME [facility] Last Admin: 10/12/22 22:06 Dose: 9 mg Multivitamins/Vitamin C (Multivitamin Tablet) 1 tab PO DAILY [facility] Last Admin: 10/12/22 10:04 Dose: 1 tab Naltrexone HCl (Naltrexone Hcl 50 Mg Tablet) 50 mg PO DAILY [facility] Last Admin: 10/12/22 10:02 Dose: 50 mg Nortriptyline HCl (Nortriptyline Hcl 25 Mg Capsule) 50 mg PO BEDTIME [facility] Last Admin: 10/12/22 22:06 Dose: 50 mg Nystatin (Nystatin Powder 15 Gm Bottle) 1 appl TOPICAL BID [facility] Last Admin: 10/12/22 22:05 Dose: 1 appl Omeprazole (Omeprazole 20 Mg Capsule.Dr) 20 mg PO BID@0630,1630 [facility] Last Admin: 10/12/22 18:11 Dose: 20 mg Oxybutynin Chloride (Oxybutynin Chloride Er 5 Mg Tab.Er.24) 10 mg PO DAILY [facility] Last Admin: 10/12/22 10:03 Dose: 10 mg Polyethylene Glycol (Polyethylene Glycol 3350 17 Gm Powd.Pack) 17 gm PO BID@0900,1700 [facility] Last Admin: 10/12/22 18:11 Dose: 17 gm Pramipexole Dihydrochloride (Pramipexole Di-Hcl 0.25 Mg Tablet) 0.25 mg PO TID [facility] Last Admin: 10/12/22 22:07 Dose: 0.25 mg Psyllium Hydrophilic Mucilloid (Psyllium Seed 3.4 Gm Powd.Pack) 3.4 gm PO BEDTIME [facility] Last Admin: 10/12/22 22:07 Dose: 3.4 gm Quetiapine Fumarate (Quetiapine Fumarate 100 Mg Tablet) 100 mg PO BEDTIME [facility] Last Admin: 10/12/22 22:07 Dose: 100 mg Quetiapine Fumarate (Quetiapine Fumarate 50 Mg Tablet) 50 mg PO BID@0900,1700 [facility] Last Admin: 10/12/22 15:43 Dose: 50 mg Tamsulosin HCl (Tamsulosin Hcl 0.4 Mg Capsule) 0.4 mg PO DAILY [facility] Last Admin: 10/12/22 10:03 Dose: 0.4 mg Trazodone HCl (Trazodone Hcl 100 Mg Tablet) 200 mg PO BEDTIME [facility] Last Admin: 10/12/22 22:06 Dose: 200 mg Trazodone HCl (Trazodone Hcl 50 Mg Tablet) 50 mg PO BEDTIME PRN PRN Reason: Insomnia Last Admin: 10/13/22 00:24 Dose: 50 mg Vitamin D (Cholecalciferol (Vitamin D3) 10 Mcg Tablet) 10 mcg PO DAILY [facility] Last Admin: 10/12/22 10:02 Dose: 10 mcg Allergies Allergies Allergy/AdvReac Type Severity Reaction Status Date / Time fentanyl [FENTANYL] Allergy Intermediate unknown Verified 04/08/22 07:00 Assessment & Plan Assessment & Plan (1) Alcohol use disorder, severe, dependence: Status: Acute Code(s): F10.20 - Alcohol dependence, uncomplicated Assessment and Plan: . Plan 1. Start naltrexone 50 mg p.o. daily. 2 increase seroquel 50 bid 100 hs . 3 d/c planning [facility] has not yet called . try and go over response prevention alt when feeling not cared for 10/08/22 Pt depressed irritanble limited judgement re his behavoir 10/10/22 Pt depressed labile irritable appears manipulative at times re needs left pants down in front of nurses seems quite hostile at times very limited judgenet insight PT consult 10/11 continue tx. I spent minutes with the patient and/or on the patient floor today, greater than?50% of which was spent counseling/coordinating care. Reason for contiued inpatient stay Substantial Risk for: harm to self
[2022-10-11] MEDS: Lidocaine 5 % Ointment 35 GM 1 APPL TOPICAL ×2 (16:05→20:25)
[2022-10-11 18:00] VITALS: BP 102/59; PULSE 72; RESP 18; TEMP 36.2; O2SAT 92
[2022-10-11 18:16] LABS: Lamotrigine Lamictal 7.1 mcg/mL (4.0-18.0)
[2022-10-11] MEDS: polyethylene glycoL 3350 17 GM POWD.PACK PO (20:18)
[2022-10-11] MEDS: traZODone HCL 100 MG TABLET 200 MG PO (20:20)
[2022-10-11] MEDS: QUEtiapine Fumarate 100 MG TABLET PO (20:20)
[2022-10-11] MEDS: Nortriptyline HCl 25 MG CAPSULE 50 MG PO (20:21)
[2022-10-11] MEDS: Melatonin 3 MG TABLET 9 MG PO (20:23)
[2022-10-11] MEDS: Nystatin Powder 15 GM BOTTLE 1 APPL TOPICAL (20:25)
[2022-10-11] MEDS: Latanoprost 0.005 % Ophth Sol 2.5 ML DROPS 1 DROP EYE-BOTH (20:26)
--- NOTE | 2022-10-11 21:55 | HO.PSYCHPN ---
Subjective Subjective Date of Service: 10/10/22 Reason For Visit: Depression aggression Subjective Notes: Conditional Voluntary Guardianship: No Interim History: pt appears to have variable needs regarding pt at times more independant at other times Medication Compliance: Yes Attending Groups: No Mental Status Exam Mental Status Exam Patient Appearance: Well Grooomed Patient Orientation: Person, Place and Situation Level of Consciousness: Awake Patient Behavior: Dependent, Belligerent and Anxious Mood Description: Withdrawn, Hostile, Anxious, Labile and Apprehensive Affect Description: Constricted Patient Cognition Impaired: Yes Ability to Follow Directions: Good Speech Pattern: Clear Hallucinations: None Delusions: Not Present Thought Process: Linear Thought Content: positive for Goal Oriented Judgement: Fair Diagnostics Vital Signs (24Hr): BMI result Body Mass Index 28.8 Labs Results: 10/03/22 19:20 10/03/22 19:19 Labs: Laboratory Results - last 48 hr 10/07/22 07:50 Lamotrigine 7.1 Medications Medications Current Medications Acetaminophen (Acetaminophen 325 Mg Tablet) 650 mg PO Q6H PRN PRN Reason: Headache/Pain Mild Scale (1-3) Last Admin: 10/11/22 09:05 Dose: 650 mg Al Hydroxide/Mg Hydroxide (Magnesium Hydrox/Alum Hydrox 30 Ml Oral.Susp) 30 ml PO Q6H PRN PRN Reason: Heartburn/Nausea Last Admin: 10/04/22 18:10 Dose: 30 ml Albuterol Sulfate (Albuterol Sulfate 90 Mcg 8 Gm Inhaler) 2 puff INHALE Q6H PRN PRN Reason: Wheezing Amlodipine Besylate (Amlodipine Besylate 5 Mg Tablet) 5 mg PO DAILY [facility]; Protocol Last Admin: 10/11/22 08:57 Dose: 5 mg Benzocaine (Throat Lozenge, Medicated Lozenge) 1 lozenge MUCOUS MEM Q2H PRN PRN Reason: Sore Throat Last Admin: 10/06/22 18:51 Dose: 1 lozenge Calcium Polycarbophil (Calcium Polycarbophil Tablet) 1 tab PO DAILY [facility] Last Admin: 10/11/22 08:57 Dose: 1 tab Docusate Sodium (Docusate Sodium 100 Mg Capsule) 100 mg PO DAILY PRN PRN Reason: constipation Last Admin: 10/11/22 09:05 Dose: 100 mg Finasteride (Finasteride 5 Mg Tablet) 5 mg PO DAILY [facility] Last Admin: 10/11/22 08:56 Dose: 5 mg Gabapentin (Gabapentin 300 Mg Capsule) 600 mg PO TID [facility] Last Admin: 10/11/22 20:24 Dose: 600 mg Hydroxyzine HCl (Hydroxyzine Hcl 25 Mg Tablet) 25 mg PO Q6H PRN PRN Reason: Anxiety Last Admin: 10/11/22 02:46 Dose: 25 mg Lamotrigine (Lamotrigine 100 Mg Tablet) 200 mg PO BID [facility] Last Admin: 10/11/22 20:23 Dose: 200 mg Latanoprost (Latanoprost 0.005 % Ophth No 2.5 Ml Drops) 1 drop EYE-BOTH BEDTIME [facility] Last Admin: 10/11/22 20:26 Dose: 1 drop Lidocaine (Lidocaine 5 % Ointment 35 Gm) 1 appl TOPICAL Q6H PRN PRN Reason: pain d/t fissure, hemorrhoid Last Admin: 10/11/22 20:25 Dose: 1 appl Lisinopril (Lisinopril 20 Mg Tablet) 20 mg PO DAILY [facility]; Protocol Last Admin: 10/11/22 08:57 Dose: 20 mg Lorazepam (Lorazepam 0.5 Mg Tablet) 0.5 mg PO BID PRN PRN Reason: Anxiety Last Admin: 10/11/22 09:19 Dose: 0.5 mg Magnesium Hydroxide (Milk Of Magnesia 30 Ml Oral.Susp) 30 ml PO DAILY PRN PRN Reason: Constipation Melatonin (Melatonin 3 Mg Tablet) 9 mg PO BEDTIME [facility] Last Admin: 10/11/22 20:23 Dose: 9 mg Multivitamins/Vitamin C (Multivitamin Tablet) 1 tab PO DAILY [facility] Last Admin: 10/11/22 08:58 Dose: 1 tab Naltrexone HCl (Naltrexone Hcl 50 Mg Tablet) 50 mg PO DAILY [facility] Last Admin: 10/11/22 08:56 Dose: 50 mg Nortriptyline HCl (Nortriptyline Hcl 25 Mg Capsule) 50 mg PO BEDTIME [facility] Last Admin: 10/11/22 20:21 Dose: 50 mg Nystatin (Nystatin Powder 15 Gm Bottle) 1 appl TOPICAL BID [facility] Last Admin: 10/11/22 20:25 Dose: 1 appl Omeprazole (Omeprazole 20 Mg Capsule.Dr) 20 mg PO BID@0630,1630 [facility] Last Admin: 10/11/22 11:59 Dose: Not Given Oxybutynin Chloride (Oxybutynin Chloride Er 5 Mg Tab.Er.24) 10 mg PO DAILY [facility] Last Admin: 10/11/22 08:57 Dose: 10 mg Polyethylene Glycol (Polyethylene Glycol 3350 17 Gm Powd.Pack) 17 gm PO BID@0900,1700 [facility] Last Admin: 10/11/22 20:18 Dose: 17 gm Pramipexole Dihydrochloride (Pramipexole Di-Hcl 0.25 Mg Tablet) 0.25 mg PO TID [facility] Last Admin: 10/11/22 20:25 Dose: 0.25 mg Psyllium Hydrophilic Mucilloid (Psyllium Seed 3.4 Gm Powd.Pack) 3.4 gm PO BEDTIME [facility] Last Admin: 10/10/22 20:07 Dose: 3.4 gm Quetiapine Fumarate (Quetiapine Fumarate 100 Mg Tablet) 100 mg PO BEDTIME [facility] Last Admin: 10/11/22 20:20 Dose: 100 mg Quetiapine Fumarate (Quetiapine Fumarate 50 Mg Tablet) 50 mg PO BID@0900,1700 [facility] Last Admin: 10/11/22 08:58 Dose: 50 mg Tamsulosin HCl (Tamsulosin Hcl 0.4 Mg Capsule) 0.4 mg PO DAILY [facility] Last Admin: 10/11/22 08:58 Dose: 0.4 mg Trazodone HCl (Trazodone Hcl 100 Mg Tablet) 200 mg PO BEDTIME [facility] Last Admin: 10/11/22 20:20 Dose: 200 mg Trazodone HCl (Trazodone Hcl 50 Mg Tablet) 50 mg PO BEDTIME PRN PRN Reason: Insomnia Last Admin: 10/11/22 02:46 Dose: 50 mg Vitamin D (Cholecalciferol (Vitamin D3) 10 Mcg Tablet) 10 mcg PO DAILY [facility] Last Admin: 10/11/22 08:58 Dose: 10 mcg Allergies Allergies Allergy/AdvReac Type Severity Reaction Status Date / Time fentanyl [FENTANYL] Allergy Intermediate unknown Verified 04/08/22 07:00 Assessment & Plan Assessment & Plan (1) Alcohol use disorder, severe, dependence: Status: Acute Code(s): F10.20 - Alcohol dependence, uncomplicated Assessment and Plan: . Plan 1. Start naltrexone 50 mg p.o. daily. 2 increase seroquel 50 bid 100 hs . 3 d/c planning [facility] has not yet called . try and go over response prevention alt when feeling not cared for 10/08/22 Pt depressed irritanble limited judgement re his behavoir 10/10/22 Pt depressed labile irritable appears manipulative at times re needs left pants down in front of nurses seems quite hostile at times very limited judgenet insight PT consult I spent minutes with the patient and/or on the patient floor today, greater than?50% of which was spent counseling/coordinating care. Reason for contiued inpatient stay Substantial Risk for: harm to others and rapid decompensation
[2022-10-12 05:36] LABS: Nortriptyline 22 mcg/L (50-150)
[2022-10-12 06:00] VITALS: BP 163/80; PULSE 70; RESP 17; TEMP 36.2; O2SAT 94
[2022-10-12] MEDS: Omeprazole 20 MG CAPSULE.DR PO ×2 (06:34→18:11)
[2022-10-12] MEDS: Acetaminophen 325 MG TABLET 650 MG PO ×3 (06:34→22:07)
[2022-10-12] MEDS: QUEtiapine Fumarate 50 MG TABLET PO ×2 (10:02→15:43)
[2022-10-12] MEDS: calcium polycarbophiL TABLET 1 TAB PO (10:02)
[2022-10-12] MEDS: Cholecalciferol (Vitamin D3) 10 MCG TABLET PO (10:02)
[2022-10-12] MEDS: Naltrexone HCl 50 MG TABLET PO (10:02)
[2022-10-12] MEDS: Gabapentin 300 MG CAPSULE 600 MG PO ×3 (10:03→22:07)
[2022-10-12] MEDS: Pramipexole Di-HCL 0.25 MG TABLET PO ×3 (10:03→22:07)
[2022-10-12] MEDS: Finasteride 5 MG TABLET PO (10:03)
[2022-10-12] MEDS: Tamsulosin HCL 0.4 MG CAPSULE PO (10:03)
[2022-10-12] MEDS: lamoTRIgine 100 MG TABLET 200 MG PO ×2 (10:03→22:06)
[2022-10-12] MEDS: lisinopriL 20 MG TABLET PO (10:04)
[2022-10-12] MEDS: Multivitamin TABLET 1 TAB PO (10:04)
[2022-10-12] MEDS: amLODIPine Besylate 5 MG TABLET PO (10:04)
[2022-10-12] MEDS: Nystatin Powder 15 GM BOTTLE 1 APPL TOPICAL ×2 (10:05→22:05)
--- NOTE | 2022-10-12 10:40 | P.PNPSI_ITS ---
Subjective Subjective Date of Service: 10/12/22 Reason For Visit: Depression aggression Subjective Notes: Conditional Voluntary Interim History: Pt reports feeling depressed, he asks this scientific writer about his BP medications. Pt informed on current HNT meds. He continues to endorse passive suicidal ideation. He denies any plan or intent to hurt himself while on the unit... I like most of the nurses here Medication Compliance: Yes Side effects from medications: No Review of Systems Review of Systems Constitutional: No Fever, No Chills ENT/Mouth: No sore throat, No Rhinorrhea, No Swallowing Difficulty Cardiovascular: No Chest Pain, No SOB Respiratory: No Cough, No Sputum, No Wheezing, No dyspnea Gastrointestinal: No Nausea, No Vomiting, No Diarrhea, No abdominal Pain Genitourinary: No Dysuria, No Urinary Frequency, No Hematuria Musculoskeletal: No joint pain, No Myalgias Skin: No Skin Lesions, No rash Neuro: No Weakness, No Numbness, No Dizziness, No Headache Psych: No Anxiety/Panic, No Depression Heme/Lymph: No Bruising, No Lymphadenopathy Mental Status Exam Mental Status Exam Narrative: Patient Appearance: Appropriate Patient Orientation: Person, Place, Time and Situation Level of Consciousness: Awake Patient Behavior: Cooperative Mood Description: Withdrawn, Anxious and Apprehensive Affect Description: Anxious, Labile and Apprehensive Ability to Follow Directions: Good Speech Pattern: Clear Memory Description: Episodic Impaired Hallucinations: None Delusions: Not Present Thought Process: Rumination and Linear Thought Content: positive for Circumstantial, negative for Suicidal Ideation or negative for Homicidal Ideation Depressive Symptoms: Increased Irritability Judgement: Fair Diagnostics Vital Signs (24Hr): Vital Signs - 24 hr 10/12/22 06:00 10/12/22 18:00 Temperature 97.1 F 97.1 F Pulse Rate 70 78 Respiratory Rate 17 16 Blood Pressure 163/80 H 112/64 Pulse Oximetry 94 95 Oxygen Delivery Method Room Air Room Air BMI result Body Mass Index 28.8 Labs Results: 10/03/22 19:20 10/03/22 19:19 Labs: Laboratory Results - last 48 hr 10/07/22 07:50 Lamotrigine 7.1 Nortriptyline 22 L Medications Medications Current Medications Acetaminophen (Acetaminophen 325 Mg Tablet) 650 mg PO Q6H PRN PRN Reason: Headache/Pain Mild Scale (1-3) Last Admin: 10/12/22 22:07 Dose: 650 mg Al Hydroxide/Mg Hydroxide (Magnesium Hydrox/Alum Hydrox 30 Ml Oral.Susp) 30 ml PO Q6H PRN PRN Reason: Heartburn/Nausea Last Admin: 10/04/22 18:10 Dose: 30 ml Albuterol Sulfate (Albuterol Sulfate 90 Mcg 8 Gm Inhaler) 2 puff INHALE Q6H PRN PRN Reason: Wheezing Amlodipine Besylate (Amlodipine Besylate 5 Mg Tablet) 5 mg PO DAILY [facility]; Protocol Last Admin: 10/12/22 10:04 Dose: 5 mg Benzocaine (Throat Lozenge, Medicated Lozenge) 1 lozenge MUCOUS MEM Q2H PRN PRN Reason: Sore Throat Last Admin: 10/06/22 18:51 Dose: 1 lozenge Calcium Polycarbophil (Calcium Polycarbophil Tablet) 1 tab PO DAILY [facility] Last Admin: 10/12/22 10:02 Dose: 1 tab Docusate Sodium (Docusate Sodium 100 Mg Capsule) 100 mg PO DAILY PRN PRN Reason: constipation Last Admin: 10/12/22 22:05 Dose: 100 mg Finasteride (Finasteride 5 Mg Tablet) 5 mg PO DAILY [facility] Last Admin: 10/12/22 10:03 Dose: 5 mg Gabapentin (Gabapentin 300 Mg Capsule) 600 mg PO TID [facility] Last Admin: 10/12/22 22:07 Dose: 600 mg Hydroxyzine HCl (Hydroxyzine Hcl 25 Mg Tablet) 25 mg PO Q6H PRN PRN Reason: Anxiety Last Admin: 10/11/22 02:46 Dose: 25 mg Lamotrigine (Lamotrigine 100 Mg Tablet) 200 mg PO BID [facility] Last Admin: 10/12/22 22:06 Dose: 200 mg Latanoprost (Latanoprost 0.005 % Ophth No 2.5 Ml Drops) 1 drop EYE-BOTH BEDTIME [facility] Last Admin: 10/12/22 22:05 Dose: 1 drop Lidocaine (Lidocaine 5 % Ointment 35 Gm) 1 appl TOPICAL Q6H PRN PRN Reason: pain d/t fissure, hemorrhoid Last Admin: 10/12/22 22:05 Dose: 1 appl Lisinopril (Lisinopril 20 Mg Tablet) 20 mg PO DAILY [facility]; Protocol Last Admin: 10/12/22 10:04 Dose: 20 mg Lorazepam (Lorazepam 0.5 Mg Tablet) 0.5 mg PO BID PRN PRN Reason: Anxiety Last Admin: 10/13/22 00:24 Dose: 0.5 mg Magnesium Hydroxide (Milk Of Magnesia 30 Ml Oral.Susp) 30 ml PO DAILY PRN PRN Reason: Constipation Melatonin (Melatonin 3 Mg Tablet) 9 mg PO BEDTIME [facility] Last Admin: 10/12/22 22:06 Dose: 9 mg Multivitamins/Vitamin C (Multivitamin Tablet) 1 tab PO DAILY [facility] Last Admin: 10/12/22 10:04 Dose: 1 tab Naltrexone HCl (Naltrexone Hcl 50 Mg Tablet) 50 mg PO DAILY [facility] Last Admin: 10/12/22 10:02 Dose: 50 mg Nortriptyline HCl (Nortriptyline Hcl 25 Mg Capsule) 50 mg PO BEDTIME [facility] Last Admin: 10/12/22 22:06 Dose: 50 mg Nystatin (Nystatin Powder 15 Gm Bottle) 1 appl TOPICAL BID [facility] Last Admin: 10/12/22 22:05 Dose: 1 appl Omeprazole (Omeprazole 20 Mg Capsule.Dr) 20 mg PO BID@0630,1630 [facility] Last Admin: 10/12/22 18:11 Dose: 20 mg Oxybutynin Chloride (Oxybutynin Chloride Er 5 Mg Tab.Er.24) 10 mg PO DAILY [facility] Last Admin: 10/12/22 10:03 Dose: 10 mg Polyethylene Glycol (Polyethylene Glycol 3350 17 Gm Powd.Pack) 17 gm PO BID@0900,1700 [facility] Last Admin: 10/12/22 18:11 Dose: 17 gm Pramipexole Dihydrochloride (Pramipexole Di-Hcl 0.25 Mg Tablet) 0.25 mg PO TID [facility] Last Admin: 10/12/22 22:07 Dose: 0.25 mg Psyllium Hydrophilic Mucilloid (Psyllium Seed 3.4 Gm Powd.Pack) 3.4 gm PO BEDTIME [facility] Last Admin: 10/12/22 22:07 Dose: 3.4 gm Quetiapine Fumarate (Quetiapine Fumarate 100 Mg Tablet) 100 mg PO BEDTIME [facility] Last Admin: 10/12/22 22:07 Dose: 100 mg Quetiapine Fumarate (Quetiapine Fumarate 50 Mg Tablet) 50 mg PO BID@0900,1700 [facility] Last Admin: 10/12/22 15:43 Dose: 50 mg Tamsulosin HCl (Tamsulosin Hcl 0.4 Mg Capsule) 0.4 mg PO DAILY [facility] Last Admin: 10/12/22 10:03 Dose: 0.4 mg Trazodone HCl (Trazodone Hcl 100 Mg Tablet) 200 mg PO BEDTIME [facility] Last Admin: 10/12/22 22:06 Dose: 200 mg Trazodone HCl (Trazodone Hcl 50 Mg Tablet) 50 mg PO BEDTIME PRN PRN Reason: Insomnia Last Admin: 10/13/22 00:24 Dose: 50 mg Vitamin D (Cholecalciferol (Vitamin D3) 10 Mcg Tablet) 10 mcg PO DAILY [facility] Last Admin: 10/12/22 10:02 Dose: 10 mcg Allergies Allergies Allergy/AdvReac Type Severity Reaction Status Date / Time fentanyl [FENTANYL] Allergy Intermediate unknown Verified 04/08/22 07:00 Assessment & Plan Assessment & Plan (1) Alcohol use disorder, severe, dependence: Status: Acute Code(s): F10.20 - Alcohol dependence, uncomplicated Assessment and Plan: . Plan 1. Start naltrexone 50 mg p.o. daily. 2 increase seroquel 50 bid 100 hs . 3 d/c planning [facility] has not yet called . try and go over response prevention alt when feeling not cared for 10/08/22 Pt depressed irritanble limited judgement re his behavoir 10/10/22 Pt depressed labile irritable appears manipulative at times re needs left pants down in front of nurses seems quite hostile at times very limited judgenet insight PT consult 10/11 continue tx. 10/12 continue tx. I spent minutes with the patient and/or on the patient floor today, greater than?50% of which was spent counseling/coordinating care. Reason for contiued inpatient stay Substantial Risk for: harm to self
[2022-10-12] MEDS: LORazepam 0.5 MG TABLET PO (13:35)
--- NOTE | 2022-10-12 17:49 | PC.NURSE ---
Pt with unwitnessed fall in his bathroom, pt yelled out for help. RADHA Moseley, ROSE Elizabeth and ROSE Maddox went to pt's room to assist and pt was found sitting on the floor facing the sink. Pt at first told RADHA Moseley that he did not hit his head. When this RN asked, the pt stated that he did hit his head on the bottom of the sink. Pt denies injuries. Pt then stood up with two assist and then utilized the toilet. Pt stated I tried to do it by myself and it didn't work . RADHA Moseley and ROSE Elizabeth reported that the pt told them he was going to go down to use the bathroom and would ring for them for help when he got down there. Pt stated afterwards I told them I would ring when I was done . The pt denies injuries, denied loss of consciousness.
[2022-10-12 18:00] VITALS: BP 112/64; PULSE 78; RESP 16; TEMP 36.2; O2SAT 95
[2022-10-12] MEDS: polyethylene glycoL 3350 17 GM POWD.PACK PO (18:11)
--- NOTE | 2022-10-12 18:20 | PC.NURSE ---
Pt reported just now that he misspoke earlier when he reported that he had no injury, he is reporting now that he did hurt his left lower back. Zarina Schmitz notified and stated order for hospitalist.
[2022-10-12] MEDS: Docusate Sodium 100 MG CAPSULE PO (22:05)
[2022-10-12] MEDS: Lidocaine 5 % Ointment 35 GM 1 APPL TOPICAL (22:05)
[2022-10-12] MEDS: Latanoprost 0.005 % Ophth Sol 2.5 ML DROPS 1 DROP EYE-BOTH (22:05)
[2022-10-12] MEDS: Melatonin 3 MG TABLET 9 MG PO (22:06)
[2022-10-12] MEDS: traZODone HCL 100 MG TABLET 200 MG PO (22:06)
[2022-10-12] MEDS: Nortriptyline HCl 25 MG CAPSULE 50 MG PO (22:06)
[2022-10-12] MEDS: QUEtiapine Fumarate 100 MG TABLET PO (22:07)
[2022-10-13] MEDS: traZODone HCL 50 MG TABLET PO (00:24)
[2022-10-13] MEDS: LORazepam 0.5 MG TABLET PO ×2 (00:24→16:23)
--- NOTE | 2022-10-13 05:03 | PC.NURSE ---
At approximately 4:30AM, Pt verbally abusive towards staff. Pt threw water at this nurse and urinal full of urine across the room. Environmental called. Deescalation methods provided. Safety maintained
[2022-10-13] MEDS: Omeprazole 20 MG CAPSULE.DR PO ×2 (06:10→17:00)
[2022-10-13 07:45] VITALS: BP 159/85; PULSE 67; RESP 16; TEMP 35.8; O2SAT 93
[2022-10-13] MEDS: Finasteride 5 MG TABLET PO (09:55)
[2022-10-13] MEDS: Pramipexole Di-HCL 0.25 MG TABLET PO ×3 (09:57→21:17)
[2022-10-13] MEDS: Cholecalciferol (Vitamin D3) 10 MCG TABLET PO (09:57)
[2022-10-13] MEDS: calcium polycarbophiL TABLET 1 TAB PO (09:57)
[2022-10-13] MEDS: Naltrexone HCl 50 MG TABLET PO (09:57)
[2022-10-13] MEDS: Multivitamin TABLET 1 TAB PO (09:58)
[2022-10-13] MEDS: amLODIPine Besylate 5 MG TABLET PO (09:58)
[2022-10-13] MEDS: Gabapentin 300 MG CAPSULE 600 MG PO ×3 (09:58→21:16)
[2022-10-13] MEDS: QUEtiapine Fumarate 50 MG TABLET PO ×2 (09:58→17:00)
[2022-10-13] MEDS: Tamsulosin HCL 0.4 MG CAPSULE PO (09:59)
[2022-10-13] MEDS: lamoTRIgine 100 MG TABLET 200 MG PO ×2 (09:59→21:17)
[2022-10-13] MEDS: lisinopriL 20 MG TABLET PO (09:59)
[2022-10-13] MEDS: polyethylene glycoL 3350 17 GM POWD.PACK PO ×2 (10:00→17:04)
[2022-10-13] MEDS: Nystatin Powder 15 GM BOTTLE 1 APPL TOPICAL ×2 (10:02→21:15)
--- NOTE | 2022-10-13 13:20 | P.PNPSI_ITS ---
Subjective Subjective Date of Service: 10/13/22 Reason For Visit: Depression aggression Subjective Notes: Conditional Voluntary Guardianship: No Interim History: PT IRRITABLE dysphoric given feedback regarding his behavouirs that are malad aptive Attending Groups: Intermittent Mental Status Exam Mental Status Exam Narrative: Patient Appearance: Appropriate Patient Orientation: Person, Place, Time and Situation Level of Consciousness: Awake Patient Behavior: Cooperative Mood Description: Withdrawn, Anxious and Apprehensive Affect Description: Anxious, Labile and Apprehensive Ability to Follow Directions: Good Speech Pattern: Clear Memory Description: Episodic Impaired Hallucinations: None Delusions: Not Present Thought Process: Rumination and Linear Thought Content: positive for Circumstantial, negative for Suicidal Ideation or negative for Homicidal Ideation Depressive Symptoms: Increased Irritability Judgement: Fair Diagnostics Vital Signs (24Hr): Vital Signs - 24 hr 10/12/22 18:00 10/13/22 07:45 Temperature 97.1 F 96.5 F L Pulse Rate 78 67 Respiratory Rate 16 16 Blood Pressure 112/64 159/85 H Pulse Oximetry 95 93 Oxygen Delivery Method Room Air Room Air BMI result Body Mass Index 28.8 Labs Results: 10/03/22 19:20 10/03/22 19:19 Labs: Laboratory Results - last 48 hr 10/07/22 07:50 Lamotrigine 7.1 Nortriptyline 22 L Medications Medications Current Medications Acetaminophen (Acetaminophen 325 Mg Tablet) 650 mg PO Q6H PRN PRN Reason: Headache/Pain Mild Scale (1-3) Last Admin: 10/12/22 22:07 Dose: 650 mg Al Hydroxide/Mg Hydroxide (Magnesium Hydrox/Alum Hydrox 30 Ml Oral.Susp) 30 ml PO Q6H PRN PRN Reason: Heartburn/Nausea Last Admin: 10/04/22 18:10 Dose: 30 ml Albuterol Sulfate (Albuterol Sulfate 90 Mcg 8 Gm Inhaler) 2 puff INHALE Q6H PRN PRN Reason: Wheezing Amlodipine Besylate (Amlodipine Besylate 5 Mg Tablet) 5 mg PO DAILY [facility]; Protocol Last Admin: 10/13/22 09:58 Dose: 5 mg Benzocaine (Throat Lozenge, Medicated Lozenge) 1 lozenge MUCOUS MEM Q2H PRN PRN Reason: Sore Throat Last Admin: 10/06/22 18:51 Dose: 1 lozenge Calcium Polycarbophil (Calcium Polycarbophil Tablet) 1 tab PO DAILY [facility] Last Admin: 10/13/22 09:57 Dose: 1 tab Docusate Sodium (Docusate Sodium 100 Mg Capsule) 100 mg PO DAILY PRN PRN Reason: constipation Last Admin: 10/12/22 22:05 Dose: 100 mg Finasteride (Finasteride 5 Mg Tablet) 5 mg PO DAILY [facility] Last Admin: 10/13/22 09:55 Dose: 5 mg Gabapentin (Gabapentin 300 Mg Capsule) 600 mg PO TID [facility] Last Admin: 10/13/22 09:58 Dose: 600 mg Hydroxyzine HCl (Hydroxyzine Hcl 25 Mg Tablet) 25 mg PO Q6H PRN PRN Reason: Anxiety Last Admin: 10/11/22 02:46 Dose: 25 mg Lamotrigine (Lamotrigine 100 Mg Tablet) 200 mg PO BID [facility] Last Admin: 10/13/22 09:59 Dose: 200 mg Latanoprost (Latanoprost 0.005 % Ophth No 2.5 Ml Drops) 1 drop EYE-BOTH BEDTIME [facility] Last Admin: 10/12/22 22:05 Dose: 1 drop Lidocaine (Lidocaine 5 % Ointment 35 Gm) 1 appl TOPICAL Q6H PRN PRN Reason: pain d/t fissure, hemorrhoid Last Admin: 10/12/22 22:05 Dose: 1 appl Lisinopril (Lisinopril 20 Mg Tablet) 20 mg PO DAILY [facility]; Protocol Last Admin: 10/13/22 09:59 Dose: 20 mg Lorazepam (Lorazepam 0.5 Mg Tablet) 0.5 mg PO BID PRN PRN Reason: Anxiety Last Admin: 10/13/22 00:24 Dose: 0.5 mg Magnesium Hydroxide (Milk Of Magnesia 30 Ml Oral.Susp) 30 ml PO DAILY PRN PRN Reason: Constipation Melatonin (Melatonin 3 Mg Tablet) 9 mg PO BEDTIME [facility] Last Admin: 10/12/22 22:06 Dose: 9 mg Multivitamins/Vitamin C (Multivitamin Tablet) 1 tab PO DAILY [facility] Last Admin: 10/13/22 09:58 Dose: 1 tab Naltrexone HCl (Naltrexone Hcl 50 Mg Tablet) 50 mg PO DAILY [facility] Last Admin: 10/13/22 09:57 Dose: 50 mg Nortriptyline HCl (Nortriptyline Hcl 25 Mg Capsule) 50 mg PO BEDTIME [facility] Last Admin: 10/12/22 22:06 Dose: 50 mg Nystatin (Nystatin Powder 15 Gm Bottle) 1 appl TOPICAL BID [facility] Last Admin: 10/13/22 10:02 Dose: 1 appl Omeprazole (Omeprazole 20 Mg Capsule.Dr) 20 mg PO BID@0630,1630 [facility] Last Admin: 10/13/22 06:10 Dose: 20 mg Oxybutynin Chloride (Oxybutynin Chloride Er 5 Mg Tab.Er.24) 10 mg PO DAILY [facility] Last Admin: 10/13/22 09:55 Dose: 10 mg Polyethylene Glycol (Polyethylene Glycol 3350 17 Gm Powd.Pack) 17 gm PO BID@0900,1700 [facility] Last Admin: 10/13/22 10:00 Dose: 17 gm Pramipexole Dihydrochloride (Pramipexole Di-Hcl 0.25 Mg Tablet) 0.25 mg PO TID [facility] Last Admin: 10/13/22 09:57 Dose: 0.25 mg Psyllium Hydrophilic Mucilloid (Psyllium Seed 3.4 Gm Powd.Pack) 3.4 gm PO BEDTI ME [facility] Last Admin: 10/12/22 22:07 Dose: 3.4 gm Quetiapine Fumarate (Quetiapine Fumarate 100 Mg Tablet) 100 mg PO BEDTIME [facility] Last Admin: 10/12/22 22:07 Dose: 100 mg Quetiapine Fumarate (Quetiapine Fumarate 50 Mg Tablet) 50 mg PO BID@0900,1700 [facility] Last Admin: 10/13/22 09:58 Dose: 50 mg Tamsulosin HCl (Tamsulosin Hcl 0.4 Mg Capsule) 0.4 mg PO DAILY [facility] Last Admin: 10/13/22 09:59 Dose: 0.4 mg Trazodone HCl (Trazodone Hcl 100 Mg Tablet) 200 mg PO BEDTIME [facility] Last Admin: 10/12/22 22:06 Dose: 200 mg Trazodone HCl (Trazodone Hcl 50 Mg Tablet) 50 mg PO BEDTIME PRN PRN Reason: Insomnia Last Admin: 10/13/22 00:24 Dose: 50 mg Vitamin D (Cholecalciferol (Vitamin D3) 10 Mcg Tablet) 10 mcg PO DAILY [facility] Last Admin: 10/13/22 09:57 Dose: 10 mcg Allergies Allergies Allergy/AdvReac Type Severity Reaction Status Date / Time fentanyl [FENTANYL] Allergy Intermediate unknown Verified 04/08/22 07:00 Assessment & Plan Assessment & Plan (1) Alcohol use disorder, severe, dependence: Status: Acute Code(s): F10.20 - Alcohol dependence, uncomplicated Assessment and Plan: . Plan 1. Start naltrexone 50 mg p.o. daily. 2 increase seroquel 50 bid 100 hs . 3 d/c planning [facility] has not yet called . try and go over response prevention alt when feeling not cared for 10/08/22 Pt depressed irritanble limited judgement re his behavoir 10/10/22 Pt depressed labile irritable appears manipulative at times re needs left pants down in front of nurses seems quite hostile at times very limited judgenet insight PT consult 10/11 continue tx. 10/12 continue tx. 10/13/22 Pt given feedback regarding his cooperativity and ability to engage in tx I spent minutes with the patient and/or on the patient floor today, greater than?50% of which was spent counseling/coordinating care. Reason for contiued inpatient stay Substantial Risk for: harm to others, rapid decompensation and med/psych decompensation
[2022-10-13] MEDS: Acetaminophen 325 MG TABLET 650 MG PO (16:22)
[2022-10-13] MEDS: Lidocaine 5 % Ointment 35 GM 1 APPL TOPICAL ×2 (16:27→21:15)
[2022-10-13 20:00] VITALS: BP 133/75; PULSE 75; RESP 20; TEMP 35.7; O2SAT 95
[2022-10-13] MEDS: Nortriptyline HCl 25 MG CAPSULE 50 MG PO (21:16)
[2022-10-13] MEDS: Melatonin 3 MG TABLET 9 MG PO (21:16)
[2022-10-13] MEDS: traZODone HCL 100 MG TABLET 200 MG PO (21:17)
[2022-10-13] MEDS: QUEtiapine Fumarate 100 MG TABLET PO (21:17)
[2022-10-13] MEDS: Latanoprost 0.005 % Ophth Sol 2.5 ML DROPS 1 DROP EYE-BOTH (21:22)
[2022-10-14] MEDS: traZODone HCL 50 MG TABLET PO (01:27)
[2022-10-14] MEDS: hydrOXYzine HCL 25 MG TABLET PO (01:38)
[2022-10-14] MEDS: LORazepam 0.5 MG TABLET PO (01:48)
[2022-10-14] MEDS: Omeprazole 20 MG CAPSULE.DR PO ×2 (05:59→16:44)
[2022-10-14 07:30] VITALS: BP 160/82; PULSE 81; RESP 16; TEMP 36.3; O2SAT 94
[2022-10-14] MEDS: polyethylene glycoL 3350 17 GM POWD.PACK PO ×2 (10:02→16:44)
[2022-10-14] MEDS: QUEtiapine Fumarate 50 MG TABLET PO ×2 (10:06→16:44)
[2022-10-14] MEDS: Naltrexone HCl 50 MG TABLET PO (10:06)
[2022-10-14] MEDS: Gabapentin 300 MG CAPSULE 600 MG PO ×3 (10:06→21:21)
[2022-10-14] MEDS: calcium polycarbophiL TABLET 1 TAB PO (10:06)
[2022-10-14] MEDS: lisinopriL 20 MG TABLET PO (10:07)
[2022-10-14] MEDS: lamoTRIgine 100 MG TABLET 200 MG PO ×2 (10:07→20:38)
[2022-10-14] MEDS: Tamsulosin HCL 0.4 MG CAPSULE PO (10:07)
[2022-10-14] MEDS: amLODIPine Besylate 5 MG TABLET PO (10:08)
[2022-10-14] MEDS: Multivitamin TABLET 1 TAB PO (10:08)
[2022-10-14] MEDS: Pramipexole Di-HCL 0.25 MG TABLET PO ×3 (10:08→20:39)
[2022-10-14] MEDS: Finasteride 5 MG TABLET PO (10:42)
[2022-10-14] MEDS: Cholecalciferol (Vitamin D3) 10 MCG TABLET PO (10:42)
[2022-10-14] MEDS: Acetaminophen 325 MG TABLET 650 MG PO (16:44)
[2022-10-14 18:00] VITALS: BP 107/74; PULSE 78; RESP 16; TEMP 36.4; O2SAT 93
--- NOTE | 2022-10-14 18:33 | HO.PSYCHPN ---
Subjective Subjective Date of Service: 10/14/22 Reason For Visit: Depression aggression Subjective Notes: Conditional Voluntary Guardianship: No Interim History: pt able to integrate some feedback depressive irritable at times states motivated to try and improve physical fx Mental Status Exam Mental Status Exam Narrative: Patient Appearance: Appropriate Patient Orientation: Person, Place, Time and Situation Level of Consciousness: Awake Patient Behavior: Cooperative Mood Description: , Anxious and Apprehensive Affect Description: Anxious, Labile and Apprehensive Ability to Follow Directions: Good Speech Pattern: Clear Memory Description: variable deficits Hallucinations: None Delusions: Not Present Thought Process: Rumination and Linear Thought Content: positive for Circumstantial, negative for Suicidal Ideation or negative for Homicidal Ideation Depressive Symptoms: Increased Irritability Judgement: Fair Diagnostics Vital Signs (24Hr): Vital Signs - 24 hr 10/13/22 20:00 10/14/22 07:30 Temperature 96.2 F L 97.4 F Pulse Rate 75 81 Respiratory Rate 20 16 Blood Pressure 133/75 160/82 H Pulse Oximetry 95 94 Oxygen Delivery Method Room Air Room Air BMI result Body Mass Index 28.8 Labs Results: 10/03/22 19:20 10/03/22 19:19 Medications Medications Current Medications Acetaminophen (Acetaminophen 325 Mg Tablet) 650 mg PO Q6H PRN PRN Reason: Headache/Pain Mild Scale (1-3) Last Admin: 10/14/22 16:44 Dose: 650 mg Al Hydroxide/Mg Hydroxide (Magnesium Hydrox/Alum Hydrox 30 Ml Oral.Susp) 30 ml PO Q6H PRN PRN Reason: Heartburn/Nausea Last Admin: 10/04/22 18:10 Dose: 30 ml Albuterol Sulfate (Albuterol Sulfate 90 Mcg 8 Gm Inhaler) 2 puff INHALE Q6H PRN PRN Reason: Wheezing Amlodipine Besylate (Amlodipine Besylate 5 Mg Tablet) 5 mg PO DAILY [facility]; Protocol Last Admin: 10/14/22 10:08 Dose: 5 mg Benzocaine (Throat Lozenge, Medicated Lozenge) 1 lozenge MUCOUS MEM Q2H PRN PRN Reason: Sore Throat Last Admin: 10/06/22 18:51 Dose: 1 lozenge Calcium Polycarbophil (Calcium Polycarbophil Tablet) 1 tab PO DAILY [facility] Last Admin: 10/14/22 10:06 Dose: 1 tab Docusate Sodium (Docusate Sodium 100 Mg Capsule) 100 mg PO DAILY PRN PRN Reason: constipation Last Admin: 10/12/22 22:05 Dose: 100 mg Finasteride (Finasteride 5 Mg Tablet) 5 mg PO DAILY [facility] Last Admin: 10/14/22 10:42 Dose: 5 mg Gabapentin (Gabapentin 300 Mg Capsule) 600 mg PO TID [facility] Last Admin: 10/14/22 14:25 Dose: 600 mg Hydroxyzine HCl (Hydroxyzine Hcl 25 Mg Tablet) 25 mg PO Q6H PRN PRN Reason: Anxiety Last Admin: 10/14/22 01:38 Dose: 25 mg Lamotrigine (Lamotrigine 100 Mg Tablet) 200 mg PO BID [facility] Last Admin: 10/14/22 10:07 Dose: 200 mg Latanoprost (Latanoprost 0.005 % Ophth No 2.5 Ml Drops) 1 drop EYE-BOTH BEDTIME [facility] Last Admin: 10/13/22 21:22 Dose: 1 drop Lidocaine (Lidocaine 5 % Ointment 35 Gm) 1 appl TOPICAL Q6H PRN PRN Reason: pain d/t fissure, hemorrhoid Last Admin: 10/13/22 21:15 Dose: 1 appl Lisinopril (Lisinopril 20 Mg Tablet) 20 mg PO DAILY [facility]; Protocol Last Admin: 10/14/22 10:07 Dose: 20 mg Magnesium Hydroxide (Milk Of Magnesia 30 Ml Oral.Susp) 30 ml PO DAILY PRN PRN Reason: Constipation Melatonin (Melatonin 3 Mg Tablet) 9 mg PO BEDTIME [facility] Last Admin: 10/13/22 21:16 Dose: 9 mg Multivitamins/Vitamin C (Multivitamin Tablet) 1 tab PO DAILY [facility] Last Admin: 10/14/22 10:08 Dose: 1 tab Naltrexone HCl (Naltrexone Hcl 50 Mg Tablet) 50 mg PO DAILY [facility] Last Admin: 10/14/22 10:06 Dose: 50 mg Nortriptyline HCl (Nortriptyline Hcl 25 Mg Capsule) 50 mg PO BEDTIME [facility] Last Admin: 10/13/22 21:16 Dose: 50 mg Nystatin (Nystatin Powder 15 Gm Bottle) 1 appl TOPICAL BID [facility] Last Admin: 10/14/22 10:08 Dose: Not Given Omeprazole (Omeprazole 20 Mg Capsule.Dr) 20 mg PO BID@0630,1630 [facility] Last Admin: 10/14/22 16:44 Dose: 20 mg Oxybutynin Chloride (Oxybutynin Chloride Er 5 Mg Tab.Er.24) 10 mg PO DAILY [facility] Last Admin: 10/14/22 10:06 Dose: 10 mg Polyethylene Glycol (Polyethylene Glycol 3350 17 Gm Powd.Pack) 17 gm PO DAILY@1600 [facility] Last Admin: 10/14/22 16:44 Dose: 17 gm Pramipexole Dihydrochloride (Pramipexole Di-Hcl 0.25 Mg Tablet) 0.25 mg PO TID [facility] Last Admin: 10/14/22 14:25 Dose: 0.25 mg Psyllium Hydrophilic Mucilloid (Psyllium Seed 3.4 Gm Powd.Pack) 3.4 gm PO DAILY [facility] Last Admin: 10/14/22 14:12 Dose: 3.4 gm Quetiapine Fumarate (Quetiapine Fumarate 100 Mg Tablet) 100 mg PO BEDTIME [facility] Last Admin: 10/13/22 21:17 Dose: 100 mg Quetiapine Fumarate (Quetiapine Fumarate 50 Mg Tablet) 50 mg PO BID@0900,1700 [facility] Last Admin: 10/14/22 16:44 Dose: 50 mg Tamsulosin HCl (Tamsulosin Hcl 0.4 Mg Capsule) 0.4 mg PO DAILY [facility] Last Admin: 10/14/22 10:07 Dose: 0.4 mg Trazodone HCl (Trazodone Hcl 100 Mg Tablet) 200 mg PO BEDTIME [facility] Last Admin: 10/13/22 21:17 Dose: 200 mg Trazodone HCl (Trazodone Hcl 50 Mg Tablet) 50 mg PO BEDTIME PRN PRN Reason: Insomnia Last Admin: 10/14/22 01:27 Dose: 50 mg Vitamin D (Cholecalciferol (Vitamin D3) 10 Mcg Tablet) 10 mcg PO DAILY [facility] Last Admin: 10/14/22 10:42 Dose: 10 mcg Allergies Allergies Allergy/AdvReac Type Severity Reaction Status Date / Time fentanyl [FENTANYL] Allergy Intermediate unknown Verified 04/08/22 07:00 Assessment & Plan Assessment & Plan (1) Alcohol use disorder, severe, dependence: Status: Acute Code(s): F10.20 - Alcohol dependence, uncomplicated Assessment and Plan: . Plan 1. Start naltrexone 50 mg p.o. daily. 2 increase seroquel 50 bid 100 hs . 3 d/c planning [facility] has not yet called . try and go over response prevention alt when feeling not cared for 10/08/22 Pt depressed irritanble limited judgement re his behavoir 10/10/22 Pt depressed labile irritable appears manipulative at times re needs left pants down in front of nurses seems quite hostile at times very limited judgenet insight PT consult 10/11 continue tx. 10/12 continue tx. 10/13/22 Pt given feedback regarding his cooperativity and ability to engage in tx 10/14/22 cont tx plan gi input pt asking for pt reevaluation feels he can participate better more effectively at this time cont nortiptyline seroquel lamictal pt needs encouragement to stay on track interpersonal awareness I spent minutes with the patient and/or on the patient floor today, greater than?50% of which was spent counseling/coordinating care. Reason for contiued inpatient stay Substantial Risk for: rapid decompensation and med/psych decompensation
[2022-10-14] MEDS: Melatonin 3 MG TABLET 9 MG PO (20:36)
[2022-10-14] MEDS: traZODone HCL 100 MG TABLET 200 MG PO (20:38)
[2022-10-14] MEDS: Nortriptyline HCl 25 MG CAPSULE 50 MG PO (20:38)
[2022-10-14] MEDS: QUEtiapine Fumarate 100 MG TABLET PO (20:39)
[2022-10-14] MEDS: Latanoprost 0.005 % Ophth Sol 2.5 ML DROPS 1 DROP EYE-BOTH ×2 (20:40→20:53)
[2022-10-14] MEDS: Nystatin Powder 15 GM BOTTLE 1 APPL TOPICAL (20:40)
[2022-10-15] MEDS: Omeprazole 20 MG CAPSULE.DR PO ×2 (05:56→16:32)
[2022-10-15] MEDS: Acetaminophen 325 MG TABLET 650 MG PO ×3 (05:56→22:51)
[2022-10-15 06:00] VITALS: BP 160/82
[2022-10-15] MEDS: calcium polycarbophiL TABLET 1 TAB PO (08:48)
[2022-10-15] MEDS: Naltrexone HCl 50 MG TABLET PO (08:48)
[2022-10-15] MEDS: lisinopriL 20 MG TABLET PO (08:48)
[2022-10-15] MEDS: Gabapentin 300 MG CAPSULE 600 MG PO ×3 (08:48→20:21)
[2022-10-15] MEDS: Finasteride 5 MG TABLET PO (08:48)
[2022-10-15] MEDS: Cholecalciferol (Vitamin D3) 10 MCG TABLET PO (08:48)
[2022-10-15] MEDS: QUEtiapine Fumarate 50 MG TABLET PO ×2 (08:49→16:32)
[2022-10-15] MEDS: lamoTRIgine 100 MG TABLET 200 MG PO ×2 (08:49→20:20)
[2022-10-15] MEDS: Pramipexole Di-HCL 0.25 MG TABLET PO ×3 (08:49→20:22)
[2022-10-15] MEDS: Multivitamin TABLET 1 TAB PO (08:49)
[2022-10-15] MEDS: amLODIPine Besylate 5 MG TABLET PO (08:49)
[2022-10-15] MEDS: Tamsulosin HCL 0.4 MG CAPSULE PO (08:49)
[2022-10-15] MEDS: polyethylene glycoL 3350 17 GM POWD.PACK PO (16:33)
--- NOTE | 2022-10-15 16:43 | HO.PSYCHPN ---
Subjective Subjective Date of Service: 10/15/22 Reason For Visit: Depression aggression Subjective Notes: Conditional Voluntary Interim History: Patient is anxious irritable overwhelmed fearful of the future. Needs much support to help with potential transition Mental Status Exam Mental Status Exam Narrative: Patient Appearance: Appropriate Patient Orientation: Person, Place, Time and Situation Level of Consciousness: Awake Patient Behavior: Cooperative Mood Description: , Anxious and Apprehensive fearful overwhelmed Affect Description: Anxious, Labile and Apprehensive Ability to Follow Directions: Good Speech Pattern: Clear Memory Description: variable deficits Hallucinations: None Delusions: Not Present Thought Process: Rumination and Linear Thought Content: positive for Circumstantial, negative for Suicidal Ideation or negative for Homicidal Ideation Depressive Symptoms: Increased Irritability Judgement: Fair Diagnostics Vital Signs (24Hr): Vital Signs - 24 hr 10/14/22 18:00 10/15/22 06:00 Temperature 97.5 F Pulse Rate 78 Respiratory Rate 16 Blood Pressure 107/74 160/82 H Pulse Oximetry 93 Oxygen Delivery Method Room Air BMI result Body Mass Index 28.8 Labs Results: 10/03/22 19:20 10/03/22 19:19 Medications Medications Current Medications Acetaminophen (Acetaminophen 325 Mg Tablet) 650 mg PO Q6H PRN PRN Reason: Headache/Pain Mild Scale (1-3) Last Admin: 10/15/22 15:55 Dose: 650 mg Al Hydroxide/Mg Hydroxide (Magnesium Hydrox/Alum Hydrox 30 Ml Oral.Susp) 30 ml PO Q6H PRN PRN Reason: Heartburn/Nausea Last Admin: 10/04/22 18:10 Dose: 30 ml Albuterol Sulfate (Albuterol Sulfate 90 Mcg 8 Gm Inhaler) 2 puff INHALE Q6H PRN PRN Reason: Wheezing Amlodipine Besylate (Amlodipine Besylate 5 Mg Tablet) 5 mg PO DAILY [facility]; Protocol Last Admin: 10/15/22 08:49 Dose: 5 mg Benzocaine (Throat Lozenge, Medicated Lozenge) 1 lozenge MUCOUS MEM Q2H PRN PRN Reason: Sore Throat Last Admin: 10/06/22 18:51 Dose: 1 lozenge Calcium Polycarbophil (Calcium Polycarbophil Tablet) 1 tab PO DAILY [facility] Last Admin: 10/15/22 08:48 Dose: 1 tab Docusate Sodium (Docusate Sodium 100 Mg Capsule) 100 mg PO DAILY PRN PRN Reason: constipation Last Admin: 10/12/22 22:05 Dose: 100 mg Finasteride (Finasteride 5 Mg Tablet) 5 mg PO DAILY [facility] Last Admin: 10/15/22 08:48 Dose: 5 mg Gabapentin (Gabapentin 300 Mg Capsule) 600 mg PO TID [facility] Last Admin: 10/15/22 15:31 Dose: 600 mg Hydroxyzine HCl (Hydroxyzine Hcl 25 Mg Tablet) 25 mg PO Q6H PRN PRN Reason: Anxiety Last Admin: 10/14/22 01:38 Dose: 25 mg Lamotrigine (Lamotrigine 100 Mg Tablet) 200 mg PO BID [facility] Last Admin: 10/15/22 08:49 Dose: 200 mg Latanoprost (Latanoprost 0.005 % Ophth No 2.5 Ml Drops) 1 drop EYE-BOTH BEDTIME [facility] Last Admin: 10/14/22 20:53 Dose: 1 drop Lidocaine (Lidocaine 5 % Ointment 35 Gm) 1 appl TOPICAL Q6H PRN PRN Reason: pain d/t fissure, hemorrhoid Last Admin: 10/13/22 21:15 Dose: 1 appl Lisinopril (Lisinopril 20 Mg Tablet) 20 mg PO DAILY [facility]; Protocol Last Admin: 10/15/22 08:48 Dose: 20 mg Lorazepam (Lorazepam 0.5 Mg Tablet) 0.5 mg PO BID PRN PRN Reason: Anxiety Magnesium Hydroxide (Milk Of Magnesia 30 Ml Oral.Susp) 30 ml PO DAILY PRN PRN Reason: Constipation Melatonin (Melatonin 3 Mg Tablet) 9 mg PO BEDTIME [facility] Last Admin: 10/14/22 20:36 Dose: 9 mg Multivitamins/Vitamin C (Multivitamin Tablet) 1 tab PO DAILY [facility] Last Admin: 10/15/22 08:49 Dose: 1 tab Naltrexone HCl (Naltrexone Hcl 50 Mg Tablet) 50 mg PO DAILY [facility] Last Admin: 10/15/22 08:48 Dose: 50 mg Nortriptyline HCl (Nortriptyline Hcl 25 Mg Capsule) 50 mg PO BEDTIME [facility] Last Admin: 10/14/22 20:38 Dose: 50 mg Nystatin (Nystatin Powder 15 Gm Bottle) 1 appl TOPICAL BID [facility] Last Admin: 10/15/22 09:01 Dose: Not Given Omeprazole (Omeprazole 20 Mg Capsule.Dr) 20 mg PO BID@0630,1630 [facility] Last Admin: 10/15/22 16:32 Dose: 20 mg Oxybutynin Chloride (Oxybutynin Chloride Er 5 Mg Tab.Er.24) 10 mg PO DAILY [facility] Last Admin: 10/15/22 08:48 Dose: 10 mg Polyethylene Glycol (Polyethylene Glycol 3350 17 Gm Powd.Pack) 17 gm PO DAILY@1600 [facility] Last Admin: 10/15/22 16:33 Dose: 17 gm Pramipexole Dihydrochloride (Pramipexole Di-Hcl 0.25 Mg Tablet) 0.25 mg PO TID [facility] Last Admin: 10/15/22 15:31 Dose: 0.25 mg Psyllium Hydrophilic Mucilloid (Psyllium Seed 3.4 Gm Powd.Pack) 3.4 gm PO DAILY [facility] Last Admin: 10/15/22 08:49 Dose: 3.4 gm Quetiapine Fumarate (Quetiapine Fumarate 100 Mg Tablet) 100 mg PO BEDTIME [facility] Last Admin: 10/14/22 20:39 Dose: 100 mg Quetiapine Fumarate (Quetiapine Fumarate 50 Mg Tablet) 50 mg PO BID@0900,1700 [facility] Last Admin: 10/15/22 16:32 Dose: 50 mg Tamsulosin HCl (Tamsulosin Hcl 0.4 Mg Capsule) 0.4 mg PO DAILY [facility] Last Admin: 10/15/22 08:49 Dose: 0.4 mg Trazodone HCl (Trazodone Hcl 100 Mg Tablet) 200 mg PO BEDTIME [facility] Last Admin: 10/14/22 20:38 Dose: 200 mg Trazodone HCl (Trazodone Hcl 50 Mg Tablet) 50 mg PO BEDTIME PRN PRN Reason: Insomnia Last Admin: 10/14/22 01:27 Dose: 50 mg Vitamin D (Cholecalciferol (Vitamin D3) 10 Mcg Tablet) 10 mcg PO DAILY [facility] Last Admin: 10/15/22 08:48 Dose: 10 mcg Allergies Allergies Allergy/AdvReac Type Severity Reaction Status Date / Time fentanyl [FENTANYL] Allergy Intermediate unknown Verified 04/08/22 07:00 Assessment & Plan Assessment & Plan (1) Alcohol use disorder, severe, dependence: Status: Acute Code(s): F10.20 - Alcohol dependence, uncomplicated Assessment and Plan: . Plan 1. Start naltrexone 50 mg p.o. daily. 2 increase seroquel 50 bid 100 hs . 3 d/c planning [facility] has not yet called . try and go over response prevention alt when feeling not cared for 10/08/22 Pt depressed irritanble limited judgement re his behavoir 10/10/22 Pt depressed labile irritable appears manipulative at times re needs left pants down in front of nurses seems quite hostile at times very limited judgenet insight PT consult 10/11 continue tx. 10/12 continue tx. 10/13/22 Pt given feedback regarding his cooperativity and ability to engage in tx 10/14/22 cont tx plan gi input pt asking for pt reevaluation feels he can participate better more effectively at this time cont nortiptyline seroquel lamictal pt needs encouragement to stay on track interpersonal awareness 10/15/2022 Continue treatment plan await GI consult encourage acceptance relaxation skills monitor mood and safety I spent minutes with the patient and/or on the patient floor today, greater than?50% of which was spent counseling/coordinating care. Reason for contiued inpatient stay Substantial Risk for: harm to self, rapid decompensation and med/psych decompensation
[2022-10-15] MEDS: LORazepam 0.5 MG TABLET PO ×2 (16:52→22:51)
[2022-10-15 18:00] VITALS: BP 109/77; PULSE 81; RESP 18; TEMP 36.2; O2SAT 93
[2022-10-15] MEDS: traZODone HCL 100 MG TABLET 200 MG PO (20:18)
[2022-10-15] MEDS: Nortriptyline HCl 25 MG CAPSULE 50 MG PO (20:19)
[2022-10-15] MEDS: QUEtiapine Fumarate 100 MG TABLET PO (20:19)
[2022-10-15] MEDS: Melatonin 3 MG TABLET 9 MG PO (20:20)
[2022-10-15] MEDS: hydrOXYzine HCL 25 MG TABLET PO (20:21)
[2022-10-15] MEDS: Nystatin Powder 15 GM BOTTLE 1 APPL TOPICAL (20:48)
[2022-10-15] MEDS: traZODone HCL 50 MG TABLET PO (22:53)
[2022-10-16] MEDS: Omeprazole 20 MG CAPSULE.DR PO ×2 (05:36→17:05)
[2022-10-16] MEDS: Acetaminophen 325 MG TABLET 650 MG PO ×2 (05:50→22:04)
[2022-10-16 06:00] VITALS: BP 114/65; PULSE 76; RESP 18; TEMP 36.1; O2SAT 93
[2022-10-16] MEDS: Multivitamin TABLET 1 TAB PO (10:55)
[2022-10-16] MEDS: calcium polycarbophiL TABLET 1 TAB PO (10:55)
[2022-10-16] MEDS: Naltrexone HCl 50 MG TABLET PO (10:55)
[2022-10-16] MEDS: Finasteride 5 MG TABLET PO (10:55)
[2022-10-16] MEDS: Gabapentin 300 MG CAPSULE 600 MG PO ×3 (10:57→22:03)
[2022-10-16] MEDS: amLODIPine Besylate 5 MG TABLET PO (10:57)
[2022-10-16] MEDS: Cholecalciferol (Vitamin D3) 10 MCG TABLET PO (10:57)
[2022-10-16] MEDS: lisinopriL 20 MG TABLET PO (10:57)
[2022-10-16] MEDS: Tamsulosin HCL 0.4 MG CAPSULE PO (10:57)
[2022-10-16] MEDS: lamoTRIgine 100 MG TABLET 200 MG PO ×2 (10:57→22:02)
[2022-10-16] MEDS: QUEtiapine Fumarate 50 MG TABLET PO ×2 (10:58→17:05)
[2022-10-16] MEDS: Pramipexole Di-HCL 0.25 MG TABLET PO ×3 (10:58→22:04)
[2022-10-16] MEDS: polyethylene glycoL 3350 17 GM POWD.PACK PO (17:05)
[2022-10-16 22:00] VITALS: BP 127/70; PULSE 74; RESP 14; TEMP 36.3; O2SAT 95
[2022-10-16] MEDS: traZODone HCL 50 MG TABLET PO (22:02)
[2022-10-16] MEDS: traZODone HCL 100 MG TABLET 200 MG PO (22:03)
[2022-10-16] MEDS: Nortriptyline HCl 25 MG CAPSULE 50 MG PO (22:03)
[2022-10-16] MEDS: QUEtiapine Fumarate 100 MG TABLET PO (22:04)
[2022-10-16] MEDS: Melatonin 3 MG TABLET 9 MG PO (22:04)
[2022-10-16] MEDS: hydrOXYzine HCL 25 MG TABLET PO (22:04)
[2022-10-16] MEDS: Latanoprost 0.005 % Ophth Sol 2.5 ML DROPS 1 DROP EYE-BOTH (22:18)
--- NOTE | 2022-10-16 22:40 | HO.PSYCHPN ---
Subjective Subjective Date of Service: 10/16/22 Reason For Visit: Depression aggression Subjective Notes: Conditional Voluntary Interim History: The patient has had increased anxiety fear regarding the future. He has been significantly less irritable he remains depressed anxious no active self-harming thoughts. He reportedly is being evicted from his intermediate setting Medication Compliance: Yes Review of Systems Medical Review of Systems: unchanged Mental Status Exam Mental Status Exam Narrative: Patient Appearance: Appropriate some wincing of pain Patient Orientation: Person, Place, Time and Situation Level of Consciousness: Awake Patient Behavior: Cooperative Mood Description: , Anxious and Apprehensive fearful overwhelmed Affect Description: Anxious, Labile and Apprehensive Ability to Follow Directions: Good Speech Pattern: Clear Memory Description: variable deficits Hallucinations: None Delusions: Not Present Thought Process: Rumination and Linear Thought Content: Periods of helplessness hopelessness negative for Suicidal Ideation or negative for Homicidal Ideation Depressive Symptoms: Increased Irritability Judgement: Fair Diagnostics Vital Signs (24Hr): Vital Signs - 24 hr 10/16/22 06:00 Temperature 97.0 F Pulse Rate 76 Respiratory Rate 18 Blood Pressure 114/65 Pulse Oximetry 93 Oxygen Delivery Method Room Air BMI result Body Mass Index 28.8 Labs Results: 10/03/22 19:20 10/03/22 19:19 Medications Medications Current Medications Acetaminophen (Acetaminophen 325 Mg Tablet) 650 mg PO Q6H PRN PRN Reason: Headache/Pain Mild Scale (1-3) Last Admin: 10/16/22 22:04 Dose: 650 mg Al Hydroxide/Mg Hydroxide (Magnesium Hydrox/Alum Hydrox 30 Ml Oral.Susp) 30 ml PO Q6H PRN PRN Reason: Heartburn/Nausea Last Admin: 10/04/22 18:10 Dose: 30 ml Albuterol Sulfate (Albuterol Sulfate 90 Mcg 8 Gm Inhaler) 2 puff INHALE Q6H PRN PRN Reason: Wheezing Amlodipine Besylate (Amlodipine Besylate 5 Mg Tablet) 5 mg PO DAILY [facility]; Protocol Last Admin: 10/16/22 10:57 Dose: 5 mg Benzocaine (Throat Lozenge, Medicated Lozenge) 1 lozenge MUCOUS MEM Q2H PRN PRN Reason: Sore Throat Last Admin: 10/06/22 18:51 Dose: 1 lozenge Calcium Polycarbophil (Calcium Polycarbophil Tablet) 1 tab PO DAILY [facility] Last Admin: 10/16/22 10:55 Dose: 1 tab Docusate Sodium (Docusate Sodium 100 Mg Capsule) 100 mg PO DAILY PRN PRN Reason: constipation Last Admin: 10/12/22 22:05 Dose: 100 mg Finasteride (Finasteride 5 Mg Tablet) 5 mg PO DAILY [facility] Last Admin: 10/16/22 10:55 Dose: 5 mg Gabapentin (Gabapentin 300 Mg Capsule) 600 mg PO TID [facility] Last Admin: 10/16/22 22:03 Dose: 600 mg Hydroxyzine HCl (Hydroxyzine Hcl 25 Mg Tablet) 25 mg PO Q6H PRN PRN Reason: Anxiety Last Admin: 10/16/22 22:04 Dose: 25 mg Lamotrigine (Lamotrigine 100 Mg Tablet) 200 mg PO BID [facility] Last Admin: 10/16/22 22:02 Dose: 200 mg Latanoprost (Latanoprost 0.005 % Ophth No 2.5 Ml Drops) 1 drop EYE-BOTH BEDTIME [facility] Last Admin: 10/16/22 22:18 Dose: 1 drop Lidocaine (Lidocaine 5 % Ointment 35 Gm) 1 appl TOPICAL Q6H PRN PRN Reason: pain d/t fissure, hemorrhoid Last Admin: 10/13/22 21:15 Dose: 1 appl Lisinopril (Lisinopril 20 Mg Tablet) 20 mg PO DAILY [facility]; Protocol Last Admin: 10/16/22 10:57 Dose: 20 mg Lorazepam (Lorazepam 0.5 Mg Tablet) 0.5 mg PO BID PRN PRN Reason: Anxiety Last Admin: 10/15/22 22:51 Dose: 0.5 mg Magnesium Hydroxide (Milk Of Magnesia 30 Ml Oral.Susp) 30 ml PO DAILY PRN PRN Reason: Constipation Melatonin (Melatonin 3 Mg Tablet) 9 mg PO BEDTIME [facility] Last Admin: 10/16/22 22:04 Dose: 9 mg Multivitamins/Vitamin C (Multivitamin Tablet) 1 tab PO DAILY [facility] Last Admin: 10/16/22 10:55 Dose: 1 tab Naltrexone HCl (Naltrexone Hcl 50 Mg Tablet) 50 mg PO DAILY [facility] Last Admin: 10/16/22 10:55 Dose: 50 mg Nortriptyline HCl (Nortriptyline Hcl 25 Mg Capsule) 50 mg PO BEDTIME [facility] Last Admin: 10/16/22 22:03 Dose: 50 mg Nystatin (Nystatin Powder 15 Gm Bottle) 1 appl TOPICAL BID [facility] Last Admin: 10/16/22 10:58 Dose: Not Given Omeprazole (Omeprazole 20 Mg Capsule.Dr) 20 mg PO BID@0630,1630 [facility] Last Admin: 10/16/22 17:05 Dose: 20 mg Oxybutynin Chloride (Oxybutynin Chloride Er 5 Mg Tab.Er.24) 10 mg PO DAILY [facility] Last Admin: 10/16/22 10:56 Dose: 10 mg Polyethylene Glycol (Polyethylene Glycol 3350 17 Gm Powd.Pack) 17 gm PO DAILY@1600 [facility] Last Admin: 10/16/22 17:05 Dose: 17 gm Pramipexole Dihydrochloride (Pramipexole Di-Hcl 0.25 Mg Tablet) 0.25 mg PO TID [facility] Last Admin: 10/16/22 22:04 Dose: 0.25 mg Psyllium Hydrophilic Mucilloid (Psyllium Seed 3.4 Gm Powd.Pack) 3.4 gm PO DAILY [facility] Last Admin: 10/16/22 10:58 Dose: 3.4 gm Quetiapine Fumarate (Quetiapine Fumarate 100 Mg Tablet) 100 mg PO BEDTIME [facility] Last Admin: 10/16/22 22:04 Dose: 100 mg Quetiapine Fumarate (Quetiapine Fumarate 50 Mg Tablet) 50 mg PO BID@0900,1700 [facility] Last Admin: 10/16/22 17:05 Dose: 50 mg Tamsulosin HCl (Tamsulosin Hcl 0.4 Mg Capsule) 0.4 mg PO DAILY [facility] Last Admin: 10/16/22 10:57 Dose: 0.4 mg Trazodone HCl (Trazodone Hcl 100 Mg Tablet) 200 mg PO BEDTIME [facility] Last Admin: 10/16/22 22:03 Dose: 200 mg Trazodone HCl (Trazodone Hcl 50 Mg Tablet) 50 mg PO BEDTIME PRN PRN Reason: Insomnia Last Admin: 10/16/22 22:02 Dose: 50 mg Vitamin D (Cholecalciferol (Vitamin D3) 10 Mcg Tablet) 10 mcg PO DAILY [facility] Last Admin: 10/16/22 10:57 Dose: 10 mcg Allergies Allergies Allergy/AdvReac Type Severity Reaction Status Date / Time fentanyl [FENTANYL] Allergy Intermediate unknown Verified 04/08/22 07:00 Assessment & Plan Assessment & Plan (1) Alcohol use disorder, severe, dependence: Status: Acute Code(s): F10.20 - Alcohol dependence, uncomplicated Assessment and Plan: . Plan 1. Start naltrexone 50 mg p.o. daily. 2 increase seroquel 50 bid 100 hs . 3 d/c planning [facility] has not yet called . try and go over response prevention alt when feeling not cared for 10/08/22 Pt depressed irritanble limited judgement re his behavoir 10/10/22 Pt depressed labile irritable appears manipulative at times re needs left pants down in front of nurses seems quite hostile at times very limited judgenet insight PT consult 10/11 continue tx. 10/12 continue tx. 10/13/22 Pt given feedback regarding his cooperativity and ability to engage in tx 10/14/22 cont tx plan gi input pt asking for pt reevaluation feels he can participate better more effectively at this time cont nortiptyline seroquel lamictal pt needs encouragement to stay on track interpersonal awareness 10/15/2022 Continue treatment plan await GI consult encourage acceptance relaxation skills monitor mood and safety 10/16/2022 Patient seen in psychiatric follow-up case reviewed with treatment team. Patient having a difficult time reviewed potential options for discharge which include whether a DDS intermediate is available and patient has required more physical care over the past year to 2 years and may need a long-term care placement if intermediate is not available that would be able to take her of his needs. The patient does seem to have more insight into negative consequences of not maintaining his physical strength and interpersonal issues with intermediate staff patient has not made threatening comments can be sarcastic he is asking to go back Lexapro feels he had less anxiety I spent minutes with the patient and/or on the patient floor today, greater than?50% of which was spent counseling/coordinating care. Reason for contiued inpatient stay Substantial Risk for: harm to self, rapid decompensation and med/psych decompensation
[2022-10-16] MEDS: Docusate Sodium 100 MG CAPSULE PO (23:00)
[2022-10-17] MEDS: hydrOXYzine HCL 25 MG TABLET PO (04:53)
[2022-10-17] MEDS: Omeprazole 20 MG CAPSULE.DR PO ×2 (06:33→17:13)
[2022-10-17] MEDS: Tamsulosin HCL 0.4 MG CAPSULE PO (10:02)
[2022-10-17] MEDS: Escitalopram Oxalate 5 MG TABLET PO (10:02)
[2022-10-17] MEDS: Naltrexone HCl 50 MG TABLET PO (10:02)
[2022-10-17] MEDS: Finasteride 5 MG TABLET PO (10:02)
[2022-10-17] MEDS: Multivitamin TABLET 1 TAB PO (10:03)
[2022-10-17] MEDS: Cholecalciferol (Vitamin D3) 10 MCG TABLET PO (10:03)
[2022-10-17] MEDS: calcium polycarbophiL TABLET 1 TAB PO (10:04)
[2022-10-17] MEDS: lamoTRIgine 100 MG TABLET 200 MG PO ×2 (10:04→20:41)
[2022-10-17] MEDS: QUEtiapine Fumarate 50 MG TABLET PO ×2 (10:04→17:13)
[2022-10-17] MEDS: Gabapentin 300 MG CAPSULE 600 MG PO ×3 (10:04→20:40)
[2022-10-17] MEDS: amLODIPine Besylate 5 MG TABLET PO (10:06)
[2022-10-17] MEDS: lisinopriL 20 MG TABLET PO (10:06)
[2022-10-17] MEDS: Acetaminophen 325 MG TABLET 650 MG PO (10:59)
[2022-10-17] MEDS: Pramipexole Di-HCL 0.25 MG TABLET PO ×2 (17:13→20:41)
[2022-10-17] MEDS: polyethylene glycoL 3350 17 GM POWD.PACK PO (17:14)
[2022-10-17 18:00] VITALS: BP 118/60; PULSE 76; RESP 16; TEMP 36.6; O2SAT 93
[2022-10-17] MEDS: Melatonin 3 MG TABLET 9 MG PO (20:40)
[2022-10-17] MEDS: QUEtiapine Fumarate 100 MG TABLET PO (20:41)
[2022-10-17] MEDS: traZODone HCL 100 MG TABLET 200 MG PO (20:41)
[2022-10-17] MEDS: Nystatin Powder 15 GM BOTTLE 1 APPL TOPICAL (20:41)
[2022-10-17] MEDS: Nortriptyline HCl 25 MG CAPSULE 50 MG PO (20:41)
[2022-10-17] MEDS: Latanoprost 0.005 % Ophth Sol 2.5 ML DROPS 1 DROP EYE-BOTH (20:42)
--- NOTE | 2022-10-17 22:08 | P.PNPSI_ITS ---
Subjective Subjective Date of Service: 10/17/22 Reason For Visit: Depression aggression Subjective Notes: Conditional Voluntary Interim History: Patient's case reviewed with treatment team patient anxious depressed irritable fearful of the future Mental Status Exam Mental Status Exam Narrative: Patient Appearance: Appropriate some wincing of pain Patient Orientation: Person, Place, Time and Situation Level of Consciousness: Awake Patient Behavior: Cooperative Mood Description: , Anxious and Apprehensive fearful overwhelmed Affect Description: Anxious, Labile and Apprehensive Ability to Follow Directions: Good Speech Pattern: Clear Memory Description: variable deficits Hallucinations: None Delusions: Not Present Thought Process: Rumination and Linear Thought Content: Periods of helplessness hopelessness negative for Suicidal Ideation or negative for Homicidal Ideation Depressive Symptoms: Increased Irritability reactivity Judgement: Fair Diagnostics Vital Signs (24Hr): Vital Signs - 24 hr 10/17/22 18:00 Temperature 97.8 F Pulse Rate 76 Respiratory Rate 16 Blood Pressure 118/60 Pulse Oximetry 93 Oxygen Delivery Method Room Air BMI result Body Mass Index 28.8 Labs Results: 10/03/22 19:20 10/03/22 19:19 Medications Medications Current Medications Acetaminophen (Acetaminophen 325 Mg Tablet) 650 mg PO Q6H PRN PRN Reason: Headache/Pain Mild Scale (1-3) Last Admin: 10/17/22 10:59 Dose: 650 mg Al Hydroxide/Mg Hydroxide (Magnesium Hydrox/Alum Hydrox 30 Ml Oral.Susp) 30 ml PO Q6H PRN PRN Reason: Heartburn/Nausea Last Admin: 10/04/22 18:10 Dose: 30 ml Albuterol Sulfate (Albuterol Sulfate 90 Mcg 8 Gm Inhaler) 2 puff INHALE Q6H PRN PRN Reason: Wheezing Amlodipine Besylate (Amlodipine Besylate 5 Mg Tablet) 5 mg PO DAILY [facility]; Protocol Last Admin: 10/17/22 10:06 Dose: 5 mg Benzocaine (Throat Lozenge, Medicated Lozenge) 1 lozenge MUCOUS MEM Q2H PRN PRN Reason: Sore Throat Last Admin: 10/06/22 18:51 Dose: 1 lozenge Calcium Polycarbophil (Calcium Polycarbophil Tablet) 1 tab PO DAILY [facility] Last Admin: 10/17/22 10:04 Dose: 1 tab Docusate Sodium (Docusate Sodium 100 Mg Capsule) 100 mg PO DAILY PRN PRN Reason: constipation Last Admin: 10/16/22 23:00 Dose: 100 mg Escitalopram Oxalate (Escitalopram Oxalate 5 Mg Tablet) 5 mg PO DAILY [facility] Last Admin: 10/17/22 10:02 Dose: 5 mg Finasteride (Finasteride 5 Mg Tablet) 5 mg PO DAILY [facility] Last Admin: 10/17/22 10:02 Dose: 5 mg Gabapentin (Gabapentin 300 Mg Capsule) 600 mg PO TID [facility] Last Admin: 10/17/22 20:40 Dose: 600 mg Hydroxyzine HCl (Hydroxyzine Hcl 25 Mg Tablet) 25 mg PO Q6H PRN PRN Reason: Anxiety Last Admin: 10/17/22 04:53 Dose: 25 mg Lamotrigine (Lamotrigine 100 Mg Tablet) 200 mg PO BID [facility] Last Admin: 10/17/22 20:41 Dose: 200 mg Latanoprost (Latanoprost 0.005 % Ophth No 2.5 Ml Drops) 1 drop EYE-BOTH BEDTIME [facility] Last Admin: 10/17/22 20:42 Dose: 1 drop Lidocaine (Lidocaine 5 % Ointment 35 Gm) 1 appl TOPICAL Q6H PRN PRN Reason: pain d/t fissure, hemorrhoid Last Admin: 10/13/22 21:15 Dose: 1 appl Lisinopril (Lisinopril 20 Mg Tablet) 20 mg PO DAILY [facility]; Protocol Last Admin: 10/17/22 10:06 Dose: 20 mg Lorazepam (Lorazepam 0.5 Mg Tablet) 0.5 mg PO TID PRN PRN Reason: Anxiety Magnesium Hydroxide (Milk Of Magnesia 30 Ml Oral.Susp) 30 ml PO DAILY PRN PRN Reason: Constipation Melatonin (Melatonin 3 Mg Tablet) 9 mg PO BEDTIME [facility] Last Admin: 10/17/22 20:40 Dose: 9 mg Multivitamins/Vitamin C (Multivitamin Tablet) 1 tab PO DAILY [facility] Last Admin: 10/17/22 10:03 Dose: 1 tab Naltrexone HCl (Naltrexone Hcl 50 Mg Tablet) 50 mg PO DAILY [facility] Last Admin: 10/17/22 10:02 Dose: 50 mg Nortriptyline HCl (Nortriptyline Hcl 25 Mg Capsule) 50 mg PO BEDTIME [facility] Last Admin: 10/17/22 20:41 Dose: 50 mg Nystatin (Nystatin Powder 15 Gm Bottle) 1 appl TOPICAL BID [facility] Last Admin: 10/17/22 20:41 Dose: 1 appl Omeprazole (Omeprazole 20 Mg Capsule.Dr) 20 mg PO BID@0630,1630 [facility] Last Admin: 10/17/22 17:13 Dose: 20 mg Oxybutynin Chloride (Oxybutynin Chloride Er 5 Mg Tab.Er.24) 10 mg PO DAILY [facility] Last Admin: 10/17/22 10:03 Dose: 10 mg Polyethylene Glycol (Polyethylene Glycol 3350 17 Gm Powd.Pack) 17 gm PO DAILY@1600 [facility] Last Admin: 10/17/22 17:14 Dose: 17 gm Pramipexole Dihydrochloride (Pramipexole Di-Hcl 0.25 Mg Tablet) 0.25 mg PO TID [facility] Last Admin: 10/17/22 20:41 Dose: 0.25 mg Psyllium Hydrophilic Mucilloid (Psyllium Seed 3.4 Gm Powd.Pack) 3.4 gm PO DAILY [facility] Last Admin: 10/17/22 10:01 Dose: 3.4 gm Quetiapine Fumarate (Quetiapine Fumarate 100 Mg Tablet) 100 mg PO BEDTIME [facility] Last Admin: 10/17/22 20:41 Dose: 100 mg Quetiapine Fumarate (Quetiapine Fumarate 50 Mg Tablet) 50 mg PO BID@0900,1700 [facility] Last Admin: 10/17/22 17:13 Dose: 50 mg Tamsulosin HCl (Tamsulosin Hcl 0.4 Mg Capsule) 0.4 mg PO DAILY [facility] Last Admin: 10/17/22 10:02 Dose: 0.4 mg Trazodone HCl (Trazodone Hcl 100 Mg Tablet) 200 mg PO BEDTIME [facility] Last Admin: 10/17/22 20:41 Dose: 200 mg Trazodone HCl (Trazodone Hcl 50 Mg Tablet) 50 mg PO BEDTIME PRN PRN Reason: Insomnia Last Admin: 10/16/22 22:02 Dose: 50 mg Vitamin D (Cholecalciferol (Vitamin D3) 10 Mcg Tablet) 10 mcg PO DAILY [facility] Last Admin: 10/17/22 10:03 Dose: 10 mcg Allergies Allergies Allergy/AdvReac Type Severity Reaction Status Date / Time fentanyl [FENTANYL] Allergy Intermediate unknown Verified 04/08/22 07:00 Assessment & Plan Assessment & Plan (1) Alcohol use disorder, severe, dependence: Status: Acute Code(s): F10.20 - Alcohol dependence, uncomplicated Assessment and Plan: . Plan 1. Start naltrexone 50 mg p.o. daily. 2 increase seroquel 50 bid 100 hs . 3 d/c planning [facility] has not yet called . try and go over response prevention alt when feeling not cared for 10/08/22 Pt depressed irritanble limited judgement re his behavoir 10/10/22 Pt depressed labile irritable appears manipulative at times re needs left pants down in front of nurses seems quite hostile at times very limited judgenet insight PT consult 10/11 continue tx. 10/12 continue tx. 10/13/22 Pt given feedback regarding his cooperativity and ability to engage in tx 10/14/22 cont tx plan gi input pt asking for pt reevaluation feels he can participate better more effectively at this time cont nortiptyline seroquel lamictal pt needs encouragement to stay on track interpersonal awareness 10/15/2022 Continue treatment plan await GI consult encourage acceptance relaxation skills monitor mood and safety 10/16/2022 Patient seen in psychiatric follow-up case reviewed with treatment team. Patient having a difficult time reviewed potential options for discharge which include whether a DDS assisted is available and patient has required more physical care over the past year to 2 years and may need a long-term care placement if assisted is not available that would be able to take her of his needs. 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 Reason for contiued inpatient stay Substantial Risk for: rapid decompensation and med/psych decompensation
--- NOTE | 2022-10-18 01:46 | HO.PSYCHPN ---
Subjective Subjective Date of Service: 10/18/22 Reason For Visit: Depression aggression Interim History: Spoke with team and pt. Pt says he is not good, complains of depression and anxiety. Discussed recent addition of lexapro. Pt reports passive SI, no plan or intent as he feels safe on the unit. He complains of anal fissure, says he thinks it is a bed sore, painful, difficult to focus due to pain- will order wound consult. Pt asking for increase in ativan. Mental Status Exam Mental Status Exam Narrative: Patient Appearance: Appropriate some wincing of pain Patient Orientation: Person, Place, Time and Situation Level of Consciousness: Awake Patient Behavior: Cooperative Mood Description: , Anxious and Apprehensive fearful overwhelmed Affect Description: Anxious, Labile and Apprehensive Ability to Follow Directions: Good Speech Pattern: Clear Memory Description: variable deficits Hallucinations: None Delusions: Not Present Thought Process: Rumination and Linear Thought Content:? Periods of helplessness hopelessness negative for Suicidal Ideation or negative for Homicidal Ideation Depressive Symptoms: Increased Irritability reactivity Judgement: Fair Diagnostics Vital Signs (24Hr): Vital Signs - 24 hr 10/17/22 18:00 Temperature 97.8 F Pulse Rate 76 Respiratory Rate 16 Blood Pressure 118/60 Pulse Oximetry 93 Oxygen Delivery Method Room Air BMI result Body Mass Index 28.8 Labs Results: 10/03/22 19:20 10/03/22 19:19 Medications Medications Current Medications Acetaminophen (Acetaminophen 325 Mg Tablet) 650 mg PO Q6H PRN PRN Reason: Headache/Pain Mild Scale (1-3) Last Admin: 10/17/22 10:59 Dose: 650 mg Al Hydroxide/Mg Hydroxide (Magnesium Hydrox/Alum Hydrox 30 Ml Oral.Susp) 30 ml PO Q6H PRN PRN Reason: Heartburn/Nausea Last Admin: 10/04/22 18:10 Dose: 30 ml Albuterol Sulfate (Albuterol Sulfate 90 Mcg 8 Gm Inhaler) 2 puff INHALE Q6H PRN PRN Reason: Wheezing Amlodipine Besylate (Amlodipine Besylate 5 Mg Tablet) 5 mg PO DAILY [facility]; Protocol Last Admin: 10/17/22 10:06 Dose: 5 mg Benzocaine (Throat Lozenge, Medicated Lozenge) 1 lozenge MUCOUS MEM Q2H PRN PRN Reason: Sore Throat Last Admin: 10/06/22 18:51 Dose: 1 lozenge Calcium Polycarbophil (Calcium Polycarbophil Tablet) 1 tab PO DAILY [facility] Last Admin: 10/17/22 10:04 Dose: 1 tab Docusate Sodium (Docusate Sodium 100 Mg Capsule) 100 mg PO DAILY PRN PRN Reason: constipation Last Admin: 10/16/22 23:00 Dose: 100 mg Escitalopram Oxalate (Escitalopram Oxalate 5 Mg Tablet) 5 mg PO DAILY [facility] Last Admin: 10/17/22 10:02 Dose: 5 mg Finasteride (Finasteride 5 Mg Tablet) 5 mg PO DAILY [facility] Last Admin: 10/17/22 10:02 Dose: 5 mg Gabapentin (Gabapentin 300 Mg Capsule) 600 mg PO TID [facility] Last Admin: 10/17/22 20:40 Dose: 600 mg Hydroxyzine HCl (Hydroxyzine Hcl 25 Mg Tablet) 25 mg PO Q6H PRN PRN Reason: Anxiety Last Admin: 10/17/22 04:53 Dose: 25 mg Lamotrigine (Lamotrigine 100 Mg Tablet) 200 mg PO BID [facility] Last Admin: 10/17/22 20:41 Dose: 200 mg Latanoprost (Latanoprost 0.005 % Ophth No 2.5 Ml Drops) 1 drop EYE-BOTH BEDTIME [facility] Last Admin: 10/17/22 20:42 Dose: 1 drop Lidocaine (Lidocaine 5 % Ointment 35 Gm) 1 appl TOPICAL Q6H PRN PRN Reason: pain d/t fissure, hemorrhoid Last Admin: 10/13/22 21:15 Dose: 1 appl Lisinopril (Lisinopril 20 Mg Tablet) 20 mg PO DAILY [facility]; Protocol Last Admin: 10/17/22 10:06 Dose: 20 mg Lorazepam (Lorazepam 0.5 Mg Tablet) 0.5 mg PO TID PRN PRN Reason: Anxiety Magnesium Hydroxide (Milk Of Magnesia 30 Ml Oral.Susp) 30 ml PO DAILY PRN PRN Reason: Constipation Melatonin (Melatonin 3 Mg Tablet) 9 mg PO BEDTIME [facility] Last Admin: 10/17/22 20:40 Dose: 9 mg Multivitamins/Vitamin C (Multivitamin Tablet) 1 tab PO DAILY [facility] Last Admin: 10/17/22 10:03 Dose: 1 tab Naltrexone HCl (Naltrexone Hcl 50 Mg Tablet) 50 mg PO DAILY [facility] Last Admin: 10/17/22 10:02 Dose: 50 mg Nortriptyline HCl (Nortriptyline Hcl 25 Mg Capsule) 50 mg PO BEDTIME [facility] Last Admin: 10/17/22 20:41 Dose: 50 mg Nystatin (Nystatin Powder 15 Gm Bottle) 1 appl TOPICAL BID [facility] Last Admin: 10/17/22 20:41 Dose: 1 appl Omeprazole (Omeprazole 20 Mg Capsule.Dr) 20 mg PO BID@0630,1630 [facility] Last Admin: 10/17/22 17:13 Dose: 20 mg Oxybutynin Chloride (Oxybutynin Chloride Er 5 Mg Tab.Er.24) 10 mg PO DAILY [facility] Last Admin: 10/17/22 10:03 Dose: 10 mg Polyethylene Glycol (Polyethylene Glycol 3350 17 Gm Powd.Pack) 17 gm PO DAILY@1600 [facility] Last Admin: 10/17/22 17:14 Dose: 17 gm Pramipexole Dihydrochloride (Pramipexole Di-Hcl 0.25 Mg Tablet) 0.25 mg PO TID [facility] Last Admin: 10/17/22 20:41 Dose: 0.25 mg Psyllium Hydrophilic Mucilloid (Psyllium Seed 3.4 Gm Powd.Pack) 3.4 gm PO DAILY [facility] Last Admin: 10/17/22 10:01 Dose: 3.4 gm Quetiapine Fumarate (Quetiapine Fumarate 100 Mg Tablet) 100 mg PO BEDTIME [facility] Last Admin: 10/17/22 20:41 Dose: 100 mg Quetiapine Fumarate (Quetiapine Fumarate 50 Mg Tablet) 50 mg PO BID@0900,1700 [facility] Last Admin: 10/17/22 17:13 Dose: 50 mg Tamsulosin HCl (Tamsulosin Hcl 0.4 Mg Capsule) 0.4 mg PO DAILY [facility] Last Admin: 10/17/22 10:02 Dose: 0.4 mg Trazodone HCl (Trazodone Hcl 100 Mg Tablet) 200 mg PO BEDTIME [facility] Last Admin: 10/17/22 20:41 Dose: 200 mg Trazodone HCl (Trazodone Hcl 50 Mg Tablet) 50 mg PO BEDTIME PRN PRN Reason: Insomnia Last Admin: 10/16/22 22:02 Dose: 50 mg Vitamin D (Cholecalciferol (Vitamin D3) 10 Mcg Tablet) 10 mcg PO DAILY [facility] Last Admin: 10/17/22 10:03 Dose: 10 mcg Allergies Allergies Allergy/AdvReac Type Severity Reaction Status Date / Time fentanyl [FENTANYL] Allergy Intermediate unknown Verified 04/08/22 07:00 Assessment & Plan Assessment & Plan (1) Alcohol use disorder, severe, dependence: Status: Acute Code(s): F10.20 - Alcohol dependence, uncomplicated Assessment and Plan: . Plan 1. Start naltrexone 50 mg p.o. daily. 2 increase seroquel 50 bid 100 hs . 3 d/c planning [facility] has not yet called . try and go over response prevention alt when feeling not cared for 10/08/22 Pt depressed irritanble limited judgement re his behavoir 10/10/22 Pt depressed labile irritable appears manipulative at times re needs left pants down in front of nurses seems quite hostile at times very limited judgenet insight PT consult 10/11 continue tx. 10/12 continue tx. 10/13/22 Pt given feedback regarding his cooperativity and ability to engage in tx 10/14/22 cont tx plan gi input pt asking for pt reevaluation feels he can participate better more effectively at this time cont nortiptyline seroquel lamictal pt needs encouragement to stay on track interpersonal awareness 10/15/2022 Continue treatment plan await GI consult encourage acceptance relaxation skills monitor mood and safety 10/16/2022 Patient seen in psychiatric follow-up case reviewed with treatment team. Patient having a difficult time reviewed potential options for discharge which include whether a DDS snf is available and patient has required more physical care over the past year to 2 years and may need a long-term care placement if snf is not available that would be able to take her of his needs. 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 Patient educated on: medication risk/benefits and therapeutic strategies Reason for contiued inpatient stay Substantial Risk for: med/psych decompensation
[2022-10-18] MEDS: hydrOXYzine HCL 25 MG TABLET PO (02:19)
[2022-10-18] MEDS: traZODone HCL 50 MG TABLET PO (02:19)
[2022-10-18] MEDS: Omeprazole 20 MG CAPSULE.DR PO ×2 (05:47→16:51)
[2022-10-18] MEDS: Acetaminophen 325 MG TABLET 650 MG PO ×2 (05:52→14:24)
[2022-10-18] MEDS: Lidocaine 5 % Ointment 35 GM 1 APPL TOPICAL ×3 (06:34→22:30)
[2022-10-18 09:40] VITALS: BP 136/57; PULSE 74; RESP 16; TEMP 36.3; O2SAT 94
[2022-10-18] MEDS: Finasteride 5 MG TABLET PO (09:43)
[2022-10-18] MEDS: amLODIPine Besylate 5 MG TABLET PO (09:44)
[2022-10-18] MEDS: lisinopriL 20 MG TABLET PO (09:44)
[2022-10-18] MEDS: Tamsulosin HCL 0.4 MG CAPSULE PO (09:45)
[2022-10-18] MEDS: Pramipexole Di-HCL 0.25 MG TABLET PO ×3 (09:45→22:11)
[2022-10-18] MEDS: Naltrexone HCl 50 MG TABLET PO (09:46)
[2022-10-18] MEDS: Cholecalciferol (Vitamin D3) 10 MCG TABLET PO (09:46)
[2022-10-18] MEDS: Escitalopram Oxalate 5 MG TABLET PO (09:47)
[2022-10-18] MEDS: Gabapentin 300 MG CAPSULE 600 MG PO ×3 (09:48→22:10)
[2022-10-18] MEDS: lamoTRIgine 100 MG TABLET 200 MG PO ×2 (09:49→22:12)
[2022-10-18] MEDS: QUEtiapine Fumarate 50 MG TABLET PO ×2 (09:49→16:51)
[2022-10-18] MEDS: calcium polycarbophiL TABLET 1 TAB PO (09:50)
[2022-10-18] MEDS: Multivitamin TABLET 1 TAB PO (09:51)
[2022-10-18] MEDS: Nystatin Powder 15 GM BOTTLE 1 APPL TOPICAL ×2 (10:31→22:13)
[2022-10-18] MEDS: LORazepam 0.5 MG TABLET PO (14:24)
[2022-10-18] MEDS: polyethylene glycoL 3350 17 GM POWD.PACK PO (16:51)
[2022-10-18 18:00] VITALS: BP 110/53; PULSE 73; RESP 16; TEMP 35.9; O2SAT 91
[2022-10-18] MEDS: Melatonin 3 MG TABLET 9 MG PO (22:11)
[2022-10-18] MEDS: traZODone HCL 100 MG TABLET 200 MG PO (22:11)
[2022-10-18] MEDS: QUEtiapine Fumarate 100 MG TABLET PO (22:11)
[2022-10-18] MEDS: Latanoprost 0.005 % Ophth Sol 2.5 ML DROPS 1 DROP EYE-BOTH (22:12)
[2022-10-18] MEDS: Nortriptyline HCl 25 MG CAPSULE 50 MG PO (22:12)
[2022-10-19] MEDS: hydrOXYzine HCL 25 MG TABLET PO (03:23)
[2022-10-19] MEDS: LORazepam 0.5 MG TABLET PO ×2 (03:29→20:15)
[2022-10-19] MEDS: Omeprazole 20 MG CAPSULE.DR PO ×2 (06:14→16:48)
[2022-10-19 09:20] VITALS: BP 123/77; PULSE 79; RESP 16; TEMP 36.3; O2SAT 93
[2022-10-19] MEDS: calcium polycarbophiL TABLET 1 TAB PO (09:23)
[2022-10-19] MEDS: Escitalopram Oxalate 5 MG TABLET PO (09:23)
[2022-10-19] MEDS: lisinopriL 20 MG TABLET PO (09:24)
[2022-10-19] MEDS: lamoTRIgine 100 MG TABLET 200 MG PO ×2 (09:24→20:17)
[2022-10-19] MEDS: Naltrexone HCl 50 MG TABLET PO (09:24)
[2022-10-19] MEDS: Cholecalciferol (Vitamin D3) 10 MCG TABLET PO (09:24)
[2022-10-19] MEDS: amLODIPine Besylate 5 MG TABLET PO (09:25)
[2022-10-19] MEDS: QUEtiapine Fumarate 50 MG TABLET PO ×2 (09:25→16:48)
[2022-10-19] MEDS: Pramipexole Di-HCL 0.25 MG TABLET PO ×3 (09:26→20:14)
[2022-10-19] MEDS: Gabapentin 300 MG CAPSULE 600 MG PO ×3 (09:26→20:15)
[2022-10-19] MEDS: Tamsulosin HCL 0.4 MG CAPSULE PO (09:27)
[2022-10-19] MEDS: Multivitamin TABLET 1 TAB PO (09:27)
[2022-10-19] MEDS: Finasteride 5 MG TABLET PO (09:28)
[2022-10-19] MEDS: Nystatin Powder 15 GM BOTTLE 1 APPL TOPICAL ×2 (09:43→20:21)
--- NOTE | 2022-10-19 15:55 | P.PNPSI_ITS ---
Subjective Subjective Date of Service: 10/19/22 Reason For Visit: Depression aggression Interim History: Spoke with pt and team. Says I cant take much more of the anxiety before i act out, when I hit a certain point i feel like I have nowhere to go other than to get verbal and aggressive. Says he feels worse today than yesterday, unable to say why. He is worried about finding short term rehab and discharge planning. Continues to ask for increase in ativan, will defer to primary provider. Mental Status Exam Mental Status Exam Narrative: Patient Appearance: Appropriate some wincing of pain Patient Orientation: Person, Place, Time and Situation Level of Consciousness: Awake Patient Behavior: Cooperative Mood Description: , Anxious and Apprehensive fearful overwhelmed Affect Description: Anxious, Labile and Apprehensive Ability to Follow Directions: Good Speech Pattern: Clear Memory Description: variable deficits Hallucinations: None Delusions: Not Present Thought Process: Rumination and Linear Thought Content:? Periods of helplessness hopelessness negative for Suicidal Vanita ation or negative for Homicidal Ideation Depressive Symptoms: Increased Irritability reactivity Judgement: Fair Diagnostics Vital Signs (24Hr): Vital Signs - 24 hr 10/18/22 18:00 10/19/22 09:20 Temperature 96.6 F L 97.3 F Pulse Rate 73 79 Respiratory Rate 16 16 Blood Pressure 110/53 L 123/77 Pulse Oximetry 91 L 93 Oxygen Delivery Method Room Air Room Air BMI result Body Mass Index 28.8 Labs Results: 10/03/22 19:20 10/03/22 19:19 Medications Medications Current Medications Acetaminophen (Acetaminophen 325 Mg Tablet) 650 mg PO Q6H PRN PRN Reason: Headache/Pain Mild Scale (1-3) Last Admin: 10/18/22 14:24 Dose: 650 mg Al Hydroxide/Mg Hydroxide (Magnesium Hydrox/Alum Hydrox 30 Ml Oral.Susp) 30 ml PO Q6H PRN PRN Reason: Heartburn/Nausea Last Admin: 10/04/22 18:10 Dose: 30 ml Albuterol Sulfate (Albuterol Sulfate 90 Mcg 8 Gm Inhaler) 2 puff INHALE Q6H PRN PRN Reason: Wheezing Amlodipine Besylate (Amlodipine Besylate 5 Mg Tablet) 5 mg PO DAILY [facility]; Protocol Last Admin: 10/19/22 09:25 Dose: 5 mg Benzocaine (Throat Lozenge, Medicated Lozenge) 1 lozenge MUCOUS MEM Q2H PRN PRN Reason: Sore Throat Last Admin: 10/06/22 18:51 Dose: 1 lozenge Calcium Polycarbophil (Calcium Polycarbophil Tablet) 1 tab PO DAILY [facility] Last Admin: 10/19/22 09:23 Dose: 1 tab Docusate Sodium (Docusate Sodium 100 Mg Capsule) 100 mg PO DAILY PRN PRN Reason: constipation Last Admin: 10/16/22 23:00 Dose: 100 mg Escitalopram Oxalate (Escitalopram Oxalate 5 Mg Tablet) 5 mg PO DAILY [facility] Last Admin: 10/19/22 09:23 Dose: 5 mg Finasteride (Finasteride 5 Mg Tablet) 5 mg PO DAILY [facility] Last Admin: 10/19/22 09:28 Dose: 5 mg Gabapentin (Gabapentin 300 Mg Capsule) 600 mg PO TID [facility] Last Admin: 10/19/22 09:26 Dose: 600 mg Hydroxyzine HCl (Hydroxyzine Hcl 25 Mg Tablet) 25 mg PO Q6H PRN PRN Reason: Anxiety Last Admin: 10/19/22 03:23 Dose: 25 mg Lamotrigine (Lamotrigine 100 Mg Tablet) 200 mg PO BID [facility] Last Admin: 10/19/22 09:24 Dose: 200 mg Latanoprost (Latanoprost 0.005 % Ophth No 2.5 Ml Drops) 1 drop EYE-BOTH BEDTIME [facility] Last Admin: 10/18/22 22:12 Dose: 1 drop Lidocaine (Lidocaine 5 % Ointment 35 Gm) 1 appl TOPICAL Q6H PRN PRN Reason: pain d/t fissure, hemorrhoid Last Admin: 10/18/22 22:30 Dose: 1 appl Lisinopril (Lisinopril 20 Mg Tablet) 20 mg PO DAILY [facility]; Protocol Last Admin: 10/19/22 09:24 Dose: 20 mg Lorazepam (Lorazepam 0.5 Mg Tablet) 0.5 mg PO TID PRN PRN Reason: Anxiety Last Admin: 10/19/22 03:29 Dose: 0.5 mg Magnesium Hydroxide (Milk Of Magnesia 30 Ml Oral.Susp) 30 ml PO DAILY PRN PRN Reason: Constipation Melatonin (Melatonin 3 Mg Tablet) 9 mg PO BEDTIME [facility] Last Admin: 10/18/22 22:11 Dose: 9 mg Multivitamins/Vitamin C (Multivitamin Tablet) 1 tab PO DAILY [facility] Last Admin: 10/19/22 09:27 Dose: 1 tab Naltrexone HCl (Naltrexone Hcl 50 Mg Tablet) 50 mg PO DAILY [facility] Last Admin: 10/19/22 09:24 Dose: 50 mg Nortriptyline HCl (Nortriptyline Hcl 25 Mg Capsule) 50 mg PO BEDTIME [facility] Last Admin: 10/18/22 22:12 Dose: 50 mg Nystatin (Nystatin Powder 15 Gm Bottle) 1 appl TOPICAL BID [facility] Last Admin: 10/19/22 09:43 Dose: 1 appl Omeprazole (Omeprazole 20 Mg Capsule.Dr) 20 mg PO BID@0630,1630 [facility] Last Admin: 10/19/22 06:14 Dose: 20 mg Oxybutynin Chloride (Oxybutynin Chloride Er 5 Mg Tab.Er.24) 10 mg PO DAILY [facility] Last Admin: 10/19/22 09:22 Dose: 10 mg Polyethylene Glycol (Polyethylene Glycol 3350 17 Gm Powd.Pack) 17 gm PO DAILY@1600 [facility] Last Admin: 10/18/22 16:51 Dose: 17 gm Pramipexole Dihydrochloride (Pramipexole Di-Hcl 0.25 Mg Tablet) 0.25 mg PO TID [facility] Last Admin: 10/19/22 09:26 Dose: 0.25 mg Psyllium Hydrophilic Mucilloid (Psyllium Seed 3.4 Gm Powd.Pack) 3.4 gm PO DAILY [facility] Last Admin: 10/19/22 09:33 Dose: 3.4 gm Quetiapine Fumarate (Quetiapine Fumarate 100 Mg Tablet) 100 mg PO BEDTIME [facility] Last Admin: 10/18/22 22:11 Dose: 100 mg Quetiapine Fumarate (Quetiapine Fumarate 50 Mg Tablet) 50 mg PO BID@0900,1700 [facility] Last Admin: 10/19/22 09:25 Dose: 50 mg Tamsulosin HCl (Tamsulosin Hcl 0.4 Mg Capsule) 0.4 mg PO DAILY [facility] Last Admin: 10/19/22 09:27 Dose: 0.4 mg Trazodone HCl (Trazodone Hcl 100 Mg Tablet) 200 mg PO BEDTIME [facility] Last Admin: 10/18/22 22:11 Dose: 200 mg Trazodone HCl (Trazodone Hcl 50 Mg Tablet) 50 mg PO BEDTIME PRN PRN Reason: Insomnia Last Admin: 10/18/22 02:19 Dose: 50 mg Vitamin D (Cholecalciferol (Vitamin D3) 10 Mcg Tablet) 10 mcg PO DAILY [facility] Last Admin: 10/19/22 09:24 Dose: 10 mcg Allergies Allergies Allergy/AdvReac Type Severity Reaction Status Date / Time fentanyl [FENTANYL] Allergy Intermediate unknown Verified 04/08/22 07:00 Assessment & Plan Assessment & Plan (1) Alcohol use disorder, severe, dependence: Status: Acute Code(s): F10.20 - Alcohol dependence, uncomplicated Assessment and Plan: . Plan 1. Start naltrexone 50 mg p.o. daily. 2 increase seroquel 50 bid 100 hs . 3 d/c planning [facility] has not yet called . try and go over response prevention alt when feeling not cared for 10/08/22 Pt depressed irritanble limited judgement re his behavoir 10/10/22 Pt depressed labile irritable appears manipulative at times re needs left pants down in front of nurses seems quite hostile at times very limited judgenet insight PT consult 10/11 continue tx. 10/12 continue tx. 10/13/22 Pt given feedback regarding his cooperativity and ability to engage in tx 10/14/22 cont tx plan gi input pt asking for pt reevaluation feels he can participate better more effectively at this time cont nortiptyline seroquel lamictal pt needs encouragement to stay on track interpersonal awareness 10/15/2022 Continue treatment plan await GI consult encourage acceptance relaxation skills monitor mood and safety 10/16/2022 Patient seen in psychiatric follow-up case reviewed with treatment team. Patient having a difficult time reviewed potential options for discharge which include whether a [facility] is available and patient has required more physical care over the past year to 2 years and may need a long-term care placement if [facility] is not available that would be able to take her of his needs. 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 Patient educated on: medication risk/benefits and therapeutic strategies Reason for contiued inpatient stay Substantial Risk for: med/psych decompensation
[2022-10-19] MEDS: polyethylene glycoL 3350 17 GM POWD.PACK PO (16:02)
[2022-10-19 18:00] VITALS: BP 99/58; PULSE 76; RESP 20; TEMP 36.2; O2SAT 94
[2022-10-19] MEDS: Magnesium Hydrox/Alum Hydrox 30 ML ORAL.SUSP PO (18:47)
[2022-10-19] MEDS: Latanoprost 0.005 % Ophth Sol 2.5 ML DROPS 1 DROP EYE-BOTH (20:13)
[2022-10-19] MEDS: traZODone HCL 100 MG TABLET 200 MG PO (20:14)
[2022-10-19] MEDS: QUEtiapine Fumarate 100 MG TABLET PO (20:14)
[2022-10-19] MEDS: Melatonin 3 MG TABLET 9 MG PO (20:15)
[2022-10-19] MEDS: Nortriptyline HCl 25 MG CAPSULE 50 MG PO (20:17)
[2022-10-20] MEDS: traZODone HCL 50 MG TABLET PO (00:53)
[2022-10-20] MEDS: hydrOXYzine HCL 25 MG TABLET PO (00:53)
[2022-10-20 06:00] VITALS: BP 110/60; PULSE 80; RESP 18; TEMP 36.4; O2SAT 94
[2022-10-20] MEDS: Omeprazole 20 MG CAPSULE.DR PO ×2 (06:08→16:43)
[2022-10-20] MEDS: Acetaminophen 325 MG TABLET 650 MG PO ×2 (06:15→16:45)
[2022-10-20] MEDS: Finasteride 5 MG TABLET PO (09:51)
[2022-10-20] MEDS: Tamsulosin HCL 0.4 MG CAPSULE PO (09:51)
[2022-10-20] MEDS: Gabapentin 300 MG CAPSULE 600 MG PO ×3 (09:51→21:05)
[2022-10-20] MEDS: QUEtiapine Fumarate 50 MG TABLET PO ×2 (09:51→16:43)
[2022-10-20] MEDS: lisinopriL 20 MG TABLET PO (09:51)
[2022-10-20] MEDS: Escitalopram Oxalate 5 MG TABLET PO (09:51)
[2022-10-20] MEDS: lamoTRIgine 100 MG TABLET 200 MG PO ×2 (09:52→21:04)
[2022-10-20] MEDS: amLODIPine Besylate 5 MG TABLET PO (09:52)
[2022-10-20] MEDS: calcium polycarbophiL TABLET 1 TAB PO (09:52)
[2022-10-20] MEDS: Cholecalciferol (Vitamin D3) 10 MCG TABLET PO (09:52)
[2022-10-20] MEDS: Naltrexone HCl 50 MG TABLET PO (09:52)
[2022-10-20] MEDS: Pramipexole Di-HCL 0.25 MG TABLET PO ×3 (09:52→21:06)
[2022-10-20] MEDS: Multivitamin TABLET 1 TAB PO (09:52)
[2022-10-20] MEDS: Nystatin Powder 15 GM BOTTLE 1 APPL TOPICAL (10:19)
[2022-10-20 14:30] LABS: MANUAL DIFF FLAG NO
[2022-10-20 14:35] LABS: Basophils Percent Auto 0.5 % (0-2); Eosinophils Absolute Auto 0.3 X10*3/uL (0.0-0.4); Eosinophils Percent Auto 3.6 % (0-4); Hematocrit 39.5 % (42.0-52.0); Hemoglobin 13.2 g/dl (14.0-18.0); Imm Gran Abs Auto 0.06 X10*3/uL (0.00-0.03); Imm Gran Pct Auto 0.7 % (0.0-0.4); Lymphocytes Absolute Auto 1.6 X10*3/uL (1.2-4.9); Lymphocytes Percent Auto 20.4 % (20-40); Mean Corpuscular HGB Conc 33.4 g/dl (31.0-36.0); Mean Corpuscular Hemoglobin 31.4 pg (27.0-33.0); Mean Platelet Volume 9.5 fL (9.4-12.4); Monocytes Absolute Auto 0.6 X10*3/uL (0.1-1.2); Monocytes Percent Auto 7.2 % (2-11); Neutrophils Absolute Auto 5.4 x10*3/uL (2.0-8.3); Neutrophils Percent Auto 67.6 % (45-73); Platelet Count 235 X10*3/uL (160-400); Red Cell Distribution Width 12.1 % (11.0-16.0); White Blood Count 8.1 X10*3/uL (4.8-10.8)
[2022-10-20] MEDS: polyethylene glycoL 3350 17 GM POWD.PACK PO (15:32)
[2022-10-20 16:55] LABS: COVID-19 Test Negative (Negative); IDNOW Serial# 9DB6401D
[2022-10-20 18:00] VITALS: BP 117/81; PULSE 71; RESP 16; TEMP 36.6; O2SAT 93
[2022-10-20] MEDS: QUEtiapine Fumarate 100 MG TABLET PO (21:06)
[2022-10-20] MEDS: Nortriptyline HCl 25 MG CAPSULE 50 MG PO (21:07)
[2022-10-20] MEDS: Melatonin 3 MG TABLET 9 MG PO (21:07)
[2022-10-20] MEDS: traZODone HCL 100 MG TABLET 200 MG PO (21:08)
--- NOTE | 2022-10-20 21:47 | HO.PSYCHPN ---
Subjective Subjective Date of Service: 10/20/22 Reason For Visit: Depression aggression Subjective Notes: Conditional Voluntary Healthcare Proxy: No Guardianship: No Interim History: Patient seen with DDS was able to hear information from DDS case workers. Complains of sedation Medication Compliance: Yes Side effects from medications: Yes Mental Status Exam Mental Status Exam Narrative: Patient Appearance: Appropriate some wincing of pain Patient Orientation: Person, Place, Time and Situation Level of Consciousness: Awake Patient Behavior: Cooperative Mood Description: , Anxious but less so Affect Description: Anxious, reactive Ability to Follow Directions: Good Speech Pattern: Clear Memory Description: variable deficits Hallucinations: None Delusions: Not Present Thought Process: Rumination and Linear Thought Content:? Periods of helplessness hopelessness negative for Suicidal Ideation or negative for Homicidal Ideation Depressive Symptoms: Increased Irritability reactivity Judgement: Fair Diagnostics Vital Signs (24Hr): Vital Signs - 24 hr 10/20/22 06:00 10/20/22 18:00 Temperature 97.5 F 97.9 F Pulse Rate 80 71 Respiratory Rate 18 16 Blood Pressure 110/60 117/81 Pulse Oximetry 94 93 Oxygen Delivery Method Room Air Room Air BMI result Body Mass Index 28.8 Labs Results: 10/20/22 14:26 10/03/22 19:19 Labs: Laboratory Results - last 48 hr 10/20/22 10/20/22 14:26 16:20 WBC 8.1 RBC 4.20 L Hgb 13.2 L Hct 39.5 L MCV 94.0 MCH 31.4 MCHC 33.4 RDW 12.1 Plt Count 235 MPV 9.5 Immature Gran % (Auto) 0.7 H Neut % (Auto) 67.6 Lymph % (Auto) 20.4 [place] % (Auto) 7.2 Eos % (Auto) 3.6 Baso % (Auto) 0.5 Lymph # (Auto) 1.6 [place] # (Auto) 0.6 Eos # (Auto) 0.3 Baso # (Auto) 0.0 Abs Immat Gran (auto) 0.06 H Absolute Neuts (auto) 5.4 Absolute Nucleated RBC 0.000 Nucleated RBC % (auto) 0.0 COVID-19 (RACHEL) Negative COVID-19 Clin Com See Note Imaging Radiology Impressions: ITS Impressions Chest X-Ray 10/20/22 15:45 IMPRESSION: 1. Low lung volumes with bibasilar linear disc atelectasis versus scarring. 2. No airspace consolidation or effusion. Medications Medications Current Medications Acetaminophen (Acetaminophen 325 Mg Tablet) 650 mg PO Q6H PRN PRN Reason: Headache/Pain Mild Scale (1-3) Last Admin: 10/20/22 16:45 Dose: 650 mg Al Hydroxide/Mg Hydroxide (Magnesium Hydrox/Alum Hydrox 30 Ml Oral.Susp) 30 ml PO Q6H PRN PRN Reason: Heartburn/Nausea Last Admin: 10/19/22 18:47 Dose: 30 ml Albuterol Sulfate (Albuterol Sulfate 90 Mcg 8 Gm Inhaler) 2 puff INHALE Q6H PRN PRN Reason: Wheezing Amlodipine Besylate (Amlodipine Besylate 5 Mg Tablet) 5 mg PO DAILY [facility]; Protocol Last Admin: 10/20/22 09:52 Dose: 5 mg Benzocaine (Throat Lozenge, Medicated Lozenge) 1 lozenge MUCOUS MEM Q2H PRN PRN Reason: Sore Throat Last Admin: 10/06/22 18:51 Dose: 1 lozenge Calcium Polycarbophil (Calcium Polycarbophil Tablet) 1 tab PO DAILY [facility] Last Admin: 10/20/22 09:52 Dose: 1 tab Docusate Sodium (Docusate Sodium 100 Mg Capsule) 100 mg PO DAILY PRN PRN Reason: constipation Last Admin: 10/16/22 23:00 Dose: 100 mg Escitalopram Oxalate (Escitalopram Oxalate 5 Mg Tablet) 5 mg PO DAILY [facility] Last Admin: 10/20/22 09:51 Dose: 5 mg Finasteride (Finasteride 5 Mg Tablet) 5 mg PO DAILY [facility] Last Admin: 10/20/22 09:51 Dose: 5 mg Gabapentin (Gabapentin 300 Mg Capsule) 600 mg PO TID [facility] Last Admin: 10/20/22 21:05 Dose: 600 mg Hydroxyzine HCl (Hydroxyzine Hcl 25 Mg Tablet) 25 mg PO Q6H PRN PRN Reason: Anxiety Last Admin: 10/20/22 00:53 Dose: 25 mg Lamotrigine (Lamotrigine 100 Mg Tablet) 200 mg PO BID [facility] Last Admin: 10/20/22 21:04 Dose: 200 mg Latanoprost (Latanoprost 0.005 % Ophth No 2.5 Ml Drops) 1 drop EYE-BOTH BEDTIME [facility] Last Admin: 10/19/22 20:13 Dose: 1 drop Lidocaine (Lidocaine 5 % Ointment 35 Gm) 1 appl TOPICAL Q6H PRN PRN Reason: pain d/t fissure, hemorrhoid Last Admin: 10/18/22 22:30 Dose: 1 appl Lisinopril (Lisinopril 20 Mg Tablet) 20 mg PO DAILY [facility]; Protocol Last Admin: 10/20/22 09:51 Dose: 20 mg Lorazepam (Lorazepam 0.5 Mg Tablet) 0.5 mg PO TID PRN PRN Reason: Anxiety Last Admin: 10/19/22 20:15 Dose: 0.5 mg Magnesium Hydroxide (Milk Of Magnesia 30 Ml Oral.Susp) 30 ml PO DAILY PRN PRN Reason: Constipation Melatonin (Melatonin 3 Mg Tablet) 9 mg PO BEDTIME [facility] Last Admin: 10/20/22 21:07 Dose: 9 mg Multivitamins/Vitamin C (Multivitamin Tablet) 1 tab PO DAILY [facility] Last Admin: 10/20/22 09:52 Dose: 1 tab Naltrexone HCl (Naltrexone Hcl 50 Mg Tablet) 50 mg PO DAILY [facility] Last Admin: 10/20/22 09:52 Dose: 50 mg Nortriptyline HCl (Nortriptyline Hcl 25 Mg Capsule) 50 mg PO BEDTIME [facility] Last Admin: 10/20/22 21:07 Dose: 50 mg Nystatin (Nystatin Powder 15 Gm Bottle) 1 appl TOPICAL BID [facility] Last Admin: 10/20/22 10:19 Dose: 1 appl Omeprazole (Omeprazole 20 Mg Capsule.Dr) 20 mg PO BID@0630,1630 [facility] Last Admin: 10/20/22 16:43 Dose: 20 mg Oxybutynin Chloride (Oxybutynin Chloride Er 5 Mg Tab.Er.24) 10 mg PO DAILY [facility] Last Admin: 10/20/22 09:52 Dose: 10 mg Polyethylene Glycol (Polyethylene Glycol 3350 17 Gm Powd.Pack) 17 gm PO DAILY@1600 [facility] Last Admin: 10/20/22 15:32 Dose: 17 gm Pramipexole Dihydrochloride (Pramipexole Di-Hcl 0.25 Mg Tablet) 0.25 mg PO TID [facility] Last Admin: 10/20/22 21:06 Dose: 0.25 mg Psyllium Hydrophilic Mucilloid (Psyllium Seed 3.4 Gm Powd.Pack) 3.4 gm PO DAILY [facility] Last Admin: 10/20/22 09:52 Dose: 3.4 gm Quetiapine Fumarate (Quetiapine Fumarate 100 Mg Tablet) 100 mg PO BEDTIME [facility] Last Admin: 10/20/22 21:06 Dose: 100 mg Quetiapine Fumarate (Quetiapine Fumarate 50 Mg Tablet) 50 mg PO BID@0900,1700 [facility] Last Admin: 10/20/22 16:43 Dose: 50 mg Tamsulosin HCl (Tamsulosin Hcl 0.4 Mg Capsule) 0.4 mg PO DAILY [facility] Last Admin: 10/20/22 09:51 Dose: 0.4 mg Trazodone HCl (Trazodone Hcl 100 Mg Tablet) 200 mg PO BEDTIME [facility] Last Admin: 10/20/22 21:08 Dose: 200 mg Trazodone HCl (Trazodone Hcl 50 Mg Tablet) 50 mg PO BEDTIME PRN PRN Reason: Insomnia Last Admin: 10/20/22 00:53 Dose: 50 mg Vitamin D (Cholecalciferol (Vitamin D3) 10 Mcg Tablet) 10 mcg PO DAILY [facility] Last Admin: 10/20/22 09:52 Dose: 10 mcg Allergies Allergies Allergy/AdvReac Type Severity Reaction Status Date / Time fentanyl [FENTANYL] Allergy Intermediate unknown Verified 04/08/22 07:00 Assessment & Plan Assessment & Plan (1) Cognitive and neurobehavioral dysfunction following brain injury: Status: Acute Code(s): G31.89 - Other specified degenerative diseases of nervous system; F09 - Unspecified mental disorder due to known physiological condition; S06.9X9S - Unspecified intracranial injury with loss of consciousness of unspecified duration, sequela (2) Major depressive disorder, recurrent severe without psychotic features: Status: Acute Code(s): F33.2 - Major depressive disorder, recurrent severe without psychotic features Plan 1. Start naltrexone 50 mg p.o. daily. 2 increase seroquel 50 bid 100 hs . 3 d/c planning [facility] has not yet called . try and go over response prevention alt when feeling not cared for 10/08/22 Pt depressed irritanble limited judgement re his behavoir 10/10/22 Pt depressed labile irritable appears manipulative at times re needs left pants down in front of nurses seems quite hostile at times very limited judgenet insight PT consult 10/11 continue tx. 10/12 continue tx. 10/13/22 Pt given feedback regarding his cooperativity and ability to engage in tx 10/14/22 cont tx plan gi input pt asking for pt reevaluation feels he can participate better more effectively at this time cont nortiptyline seroquel lamictal pt needs encouragement to stay on track interpersonal awareness 10/15/2022 Continue treatment plan await GI consult encourage acceptance relaxation skills monitor mood and safety 10/16/2022 Patient seen in psychiatric follow-up case reviewed with treatment team. Patient having a difficult time reviewed potential options for discharge which include whether a [facility] [place] available and patient has required more physical care over the past year to 2 years and may need a long-term care placement if [place] [facility] [place] is not available that would be able to take her of his needs. The patient does seem to have more insight into negative consequences of not maintaining his physical strength and interpersonal issues with [place] [facility] [place] staff patient has not made threatening comments can be sarcastic he is asking to go back Lexapro feels he had less anxiety 10/17/22 Pt started on Lexapro continue nortriptyline Seroquel encourage cooperative E patient does have longstanding sarcasm as a defense cont tx plan upcoming mtg dds for d/c planning 10/18/22 No changes, wound consult as pt reporting pain and concern for bed sore 10/19/22 no changes, continue tx 10/20/22 d/c planning lower seroquel ck covid cbc cxr cough I spent minutes with the patient and/or on the patient floor today, greater than?50% of which was spent counseling/coordinating care. Reason for contiued inpatient stay Substantial Risk for: inability to function, rapid decompensation and med/psych decompensation
[2022-10-21] MEDS: Latanoprost 0.005 % Ophth Sol 2.5 ML DROPS 1 DROP EYE-BOTH ×2 (00:15→22:33)
[2022-10-21] MEDS: hydrOXYzine HCL 25 MG TABLET PO (00:32)
[2022-10-21] MEDS: traZODone HCL 50 MG TABLET PO (00:33)
[2022-10-21 09:00] VITALS: BP 132/82; PULSE 68; RESP 16; TEMP 36.1; O2SAT 95
[2022-10-21] MEDS: Finasteride 5 MG TABLET PO (09:00)
[2022-10-21] MEDS: calcium polycarbophiL TABLET 1 TAB PO (09:01)
[2022-10-21] MEDS: lamoTRIgine 100 MG TABLET 200 MG PO ×2 (09:01→22:32)
[2022-10-21] MEDS: Gabapentin 300 MG CAPSULE 600 MG PO ×3 (09:02→22:33)
[2022-10-21] MEDS: Escitalopram Oxalate 5 MG TABLET PO (09:02)
[2022-10-21] MEDS: lisinopriL 20 MG TABLET PO (09:03)
[2022-10-21] MEDS: QUEtiapine Fumarate 25 MG TABLET PO ×2 (09:03→16:08)
[2022-10-21] MEDS: Naltrexone HCl 50 MG TABLET PO (09:04)
[2022-10-21] MEDS: amLODIPine Besylate 5 MG TABLET PO (09:04)
[2022-10-21] MEDS: Omeprazole 20 MG CAPSULE.DR PO ×2 (09:04→16:08)
[2022-10-21] MEDS: Multivitamin TABLET 1 TAB PO (09:05)
[2022-10-21] MEDS: Tamsulosin HCL 0.4 MG CAPSULE PO (09:05)
[2022-10-21] MEDS: Pramipexole Di-HCL 0.25 MG TABLET PO ×3 (09:05→22:33)
[2022-10-21] MEDS: Cholecalciferol (Vitamin D3) 10 MCG TABLET PO (09:05)
[2022-10-21] MEDS: Nystatin Powder 15 GM BOTTLE 1 APPL TOPICAL (09:06)
[2022-10-21 12:45] LABS: Gamma Glutamyl Transpeptidase 135 U/L (11-51)
--- NOTE | 2022-10-21 13:23 | PC.NURSE ---
Dr Alexander notified of GGT result 135 high.
[2022-10-21] MEDS: LORazepam 0.5 MG TABLET PO (14:37)
--- NOTE | 2022-10-21 15:55 | P.PNPSI_ITS ---
Subjective Subjective Date of Service: 10/21/22 Reason For Visit: Depression aggression Subjective Notes: Conditional Voluntary Interim History: The nursing staff reported that the patient has been compliant with treatment. He had trazodone Ativan at night for sleep. According to the staff he slept all night long. Also, it was noticed that the patient wants to taper of medications since he feels that his taking too many. The social services specialist reported that they had a meeting yesterday and he cannot go back to his [place] so [facility] is looking into [facility] to get another [place]. Apparently he nearly lost the grand since he has a noticeable substance abuse problem. On interview the patient denies new symptoms his depressed he states that he is working hard on physical therapy and with the occupational therapist. He is motivated to quit drinking. Today I ordered a new GGT and he dropped out from 149-138 in 2 weeks. I explained the patient the results, and it was clear that he was drinking heavily since his liver is healing slowly. Mental Status Exam Mental Status Exam Patient Appearance: Well Grooomed Patient Orientation: Person, Place and Situation Level of Consciousness: Awake and Appropriate Patient Behavior: Cooperative and Passive Mood Description: Withdrawn Affect Description: Constricted Patient Cognition Impaired: Yes Ability to Follow Directions: Good Speech Pattern: Clear Hallucinations: None Delusions: Not Present Thought Process: Linear Thought Content: positive for Circumstantial Judgement: Fair Diagnostics Vital Signs (24Hr): Vital Signs - 24 hr 10/20/22 18:00 10/21/22 09:00 Temperature 97.9 F 96.9 F Pulse Rate 71 68 Respiratory Rate 16 16 Blood Pressure 117/81 132/82 Pulse Oximetry 93 95 Oxygen Delivery Method Room Air Room Air BMI result Body Mass Index 28.8 Labs Results: 10/20/22 14:26 10/03/22 19:19 Labs: Laboratory Results - last 48 hr 10/20/22 10/20/22 10/21/22 14:26 16:20 11:46 WBC 8.1 RBC 4.20 L Hgb 13.2 L Hct 39.5 L MCV 94.0 MCH 31.4 MCHC 33.4 RDW 12.1 Plt Count 235 MPV 9.5 Immature Gran % (Auto) 0.7 H Neut % (Auto) 67.6 Lymph % (Auto) 20.4 [place] % (Auto) 7.2 Eos % (Auto) 3.6 Baso % (Auto) 0.5 Lymph # (Auto) 1.6 [place] # (Auto) 0.6 Eos # (Auto) 0.3 Baso # (Auto) 0.0 Abs Immat Gran (auto) 0.06 H Absolute Neuts (auto) 5.4 Absolute Nucleated RBC 0.000 Nucleated RBC % (auto) 0.0 GGT 135 H COVID-19 (RACHEL) Negative COVID-19 Clin Com See Note Imaging Radiology Impressions: ITS Impressions Chest X-Ray 10/20/22 15:45 IMPRESSION: 1. Low lung volumes with bibasilar linear disc atelectasis versus scarring. 2. No airspace consolidation or effusion. Medications Medications Current Medications Acetaminophen (Acetaminophen 325 Mg Tablet) 650 mg PO Q6H PRN PRN Reason: Headache/Pain Mild Scale (1-3) Last Admin: 10/20/22 16:45 Dose: 650 mg Al Hydroxide/Mg Hydroxide (Magnesium Hydrox/Alum Hydrox 30 Ml Oral.Susp) 30 ml PO Q6H PRN PRN Reason: Heartburn/Nausea Last Admin: 10/19/22 18:47 Dose: 30 ml Albuterol Sulfate (Albuterol Sulfate 90 Mcg 8 Gm Inhaler) 2 puff INHALE Q6H PRN PRN Reason: Wheezing Amlodipine Besylate (Amlodipine Besylate 5 Mg Tablet) 5 mg PO DAILY [facility]; Protocol Last Admin: 10/21/22 09:04 Dose: 5 mg Benzocaine (Throat Lozenge, Medicated Lozenge) 1 lozenge MUCOUS MEM Q2H PRN PRN Reason: Sore Throat Last Admin: 10/06/22 18:51 Dose: 1 lozenge Calcium Polycarbophil (Calcium Polycarbophil Tablet) 1 tab PO DAILY [facility] Last Admin: 10/21/22 09:01 Dose: 1 tab Docusate Sodium (Docusate Sodium 100 Mg Capsule) 100 mg PO DAILY PRN PRN Reason: constipation Last Admin: 10/16/22 23:00 Dose: 100 mg Escitalopram Oxalate (Escitalopram Oxalate 5 Mg Tablet) 5 mg PO DAILY [facility] Last Admin: 10/21/22 09:02 Dose: 5 mg Finasteride (Finasteride 5 Mg Tablet) 5 mg PO DAILY [facility] Last Admin: 10/21/22 09:00 Dose: 5 mg Gabapentin (Gabapentin 300 Mg Capsule) 600 mg PO TID [facility] Last Admin: 10/21/22 14:36 Dose: 600 mg Hydroxyzine HCl (Hydroxyzine Hcl 25 Mg Tablet) 25 mg PO Q6H PRN PRN Reason: Anxiety Last Admin: 10/21/22 00:32 Dose: 25 mg Lamotrigine (Lamotrigine 100 Mg Tablet) 200 mg PO BID [facility] Last Admin: 10/21/22 09:01 Dose: 200 mg Latanoprost (Latanoprost 0.005 % Ophth No 2.5 Ml Drops) 1 drop EYE-BOTH BEDTIME [facility] Last Admin: 10/21/22 00:15 Dose: 1 drop Lidocaine (Lidocaine 5 % Ointment 35 Gm) 1 appl TOPICAL Q6H PRN PRN Reason: pain d/t fissure, hemorrhoid Last Admin: 10/18/22 22:30 Dose: 1 appl Lisinopril (Lisinopril 20 Mg Tablet) 20 mg PO DAILY [facility]; Protocol Last Admin: 10/21/22 09:03 Dose: 20 mg Lorazepam (Lorazepam 0.5 Mg Tablet) 0.5 mg PO TID PRN PRN Reason: Anxiety Last Admin: 10/21/22 14:37 Dose: 0.5 mg Magnesium Hydroxide (Milk Of Magnesia 30 Ml Oral.Susp) 30 ml PO DAILY PRN PRN Reason: Constipation Melatonin (Melatonin 3 Mg Tablet) 9 mg PO BEDTIME [facility] Last Admin: 10/20/22 21:07 Dose: 9 mg Multivitamins/Vitamin C (Multivitamin Tablet) 1 tab PO DAILY [facility] Last Admin: 10/21/22 09:05 Dose: 1 tab Naltrexone HCl (Naltrexone Hcl 50 Mg Tablet) 50 mg PO DAILY [facility] Last Admin: 10/21/22 09:04 Dose: 50 mg Nortriptyline HCl (Nortriptyline Hcl 25 Mg Capsule) 50 mg PO BEDTIME [facility] Last Admin: 10/20/22 21:07 Dose: 50 mg Nystatin (Nystatin Powder 15 Gm Bottle) 1 appl TOPICAL BID [facility] Last Admin: 10/21/22 09:06 Dose: 1 appl Omeprazole (Omeprazole 20 Mg Capsule.Dr) 20 mg PO BID@0630,1630 [facility] Last Admin: 10/21/22 09:04 Dose: 20 mg Oxybutynin Chloride (Oxybutynin Chloride Er 5 Mg Tab.Er.24) 10 mg PO DAILY [facility] Last Admin: 12/06/22 09:00 Dose: 10 mg Polyethylene Glycol (Polyethylene Glycol 3350 17 Gm Powd.Pack) 17 gm PO DAILY@1600 [facility] Last Admin: 10/20/22 15:32 Dose: 17 gm Pramipexole Dihydrochloride (Pramipexole Di-Hcl 0.25 Mg Tablet) 0.25 mg PO TID [facility] Last Admin: 10/21/22 14:36 Dose: 0.25 mg Psyllium Hydrophilic Mucilloid (Psyllium Seed 3.4 Gm Powd.Pack) 3.4 gm PO DAILY [facility] Last Admin: 10/21/22 09:01 Dose: 3.4 gm Quetiapine Fumarate (Quetiapine Fumarate 100 Mg Tablet) 100 mg PO BEDTIME [facility] Last Admin: 10/20/22 21:06 Dose: 100 mg Quetiapine Fumarate (Quetiapine Fumarate 25 Mg Tablet) 25 mg PO BID@0900,1700 [facility] Last Admin: 10/21/22 09:03 Dose: 25 mg Tamsulosin HCl (Tamsulosin Hcl 0.4 Mg Capsule) 0.4 mg PO DAILY [facility] Last Admin: 10/21/22 09:05 Dose: 0.4 mg Trazodone HCl (Trazodone Hcl 100 Mg Tablet) 200 mg PO BEDTIME [facility] Last Admin: 10/20/22 21:08 Dose: 200 mg Trazodone HCl (Trazodone Hcl 50 Mg Tablet) 50 mg PO BEDTIME PRN PRN Reason: Insomnia Last Admin: 10/21/22 00:33 Dose: 50 mg Vitamin D (Cholecalciferol (Vitamin D3) 10 Mcg Tablet) 10 mcg PO DAILY [facility] Last Admin: 10/21/22 09:05 Dose: 10 mcg Allergies Allergies Allergy/AdvReac Type Severity Reaction Status Date / Time fentanyl [FENTANYL] Allergy Intermediate unknown Verified 04/08/22 07:00 Assessment & Plan Assessment & Plan (1) Cognitive and neurobehavioral dysfunction following brain injury: Status: Acute Code(s): G31.89 - Other specified degenerative diseases of nervous system; F09 - Unspecified mental disorder due to known physiological condition; S06.9X9S - Unspecified intracranial injury with loss of consciousness of unspecified duration, sequela (2) Major depressive disorder, recurrent severe without psychotic features: Status: Acute Code(s): F33.2 - Major depressive disorder, recurrent severe without psychotic features Plan 1. Start naltrexone 50 mg p.o. daily. 2 increase seroquel 50 bid 100 hs . 3 d/c planning [facility] has not yet called . try and go over response prevention alt when feeling not cared for 10/08/22 Pt depressed irritanble limited judgement re his behavoir 10/10/22 Pt depressed labile irritable appears manipulative at times re needs left pants down in front of nurses seems quite hostile at times very limited judgenet insight PT consult 10/11 continue tx. 10/12 continue tx. 10/13/22 Pt given feedback regarding his cooperativity and ability to engage in tx 10/14/22 cont tx plan gi input pt asking for pt reevaluation feels he can participate better more effectively at this time cont nortiptyline seroquel lamictal pt needs encouragement to stay on track interpersonal awareness 10/15/2022 Continue treatment plan await GI consult encourage acceptance relaxation skills monitor mood and safety 10/16/2022 Patient seen in psychiatric follow-up case reviewed with treatment team. Sabine mcgraw having a difficult time reviewed potential options for discharge which include whether a [facility] [place] [facility] [place] is available and patient has required more physical care over the past year to 2 years and may need a long-term care placement if [place] [facility] [place] is not available that would be able to take her of his needs. The patient does seem to have more insight into negative consequences of not maintaining his physical strength and interpersonal issues with [place] [facility] [place] staff patient has not made threatening comments can be sarcastic he is asking to go back Lexapro feels he had less anxiety 10/17/22 Pt started on Lexapro continue nortriptyline Seroquel encourage cooperative E patient does have longstanding sarcasm as a defense cont tx plan upcoming mtg dds for d/c planning 10/18/22 No changes, wound consult as pt reporting pain and concern for bed sore 10/19/22 no changes, continue tx 10/20/22 d/c planning lower seroquel ck covid cbc cxr cough 10/21/22 GGT lowered from 149 to 138 in 2 weeks. Discussed alcohol abuse I spent __20____ minutes with the patient and/or on the patient floor today, greater than?50% of which was spent counseling/coordinating care. Reason for contiued inpatient stay Substantial Risk for: inability to function, rapid decompensation and med/psych decompensation
[2022-10-21] MEDS: polyethylene glycoL 3350 17 GM POWD.PACK PO (16:08)
[2022-10-21] MEDS: QUEtiapine Fumarate 100 MG TABLET PO (22:32)
[2022-10-21] MEDS: Melatonin 3 MG TABLET 9 MG PO (22:32)
[2022-10-21] MEDS: Nortriptyline HCl 25 MG CAPSULE 50 MG PO (22:32)
[2022-10-21] MEDS: traZODone HCL 100 MG TABLET 200 MG PO (22:33)
[2022-10-21] MEDS: Milk of Magnesia 30 ML ORAL.SUSP PO (22:46)
[2022-10-22] MEDS: hydrOXYzine HCL 25 MG TABLET PO (01:46)
[2022-10-22] MEDS: traZODone HCL 50 MG TABLET PO (01:47)
[2022-10-22 06:00] VITALS: BP 112/68; PULSE 80; RESP 18; TEMP 35.9; O2SAT 92
[2022-10-22] MEDS: Acetaminophen 325 MG TABLET 650 MG PO (06:05)
[2022-10-22] MEDS: Omeprazole 20 MG CAPSULE.DR PO ×2 (06:06→17:00)
[2022-10-22] MEDS: Finasteride 5 MG TABLET PO (09:32)
[2022-10-22] MEDS: Escitalopram Oxalate 5 MG TABLET PO (09:33)
[2022-10-22] MEDS: Cholecalciferol (Vitamin D3) 10 MCG TABLET PO (09:33)
[2022-10-22] MEDS: lisinopriL 20 MG TABLET PO (09:33)
[2022-10-22] MEDS: Gabapentin 300 MG CAPSULE 600 MG PO ×3 (09:33→20:09)
[2022-10-22] MEDS: calcium polycarbophiL TABLET 1 TAB PO (09:33)
[2022-10-22] MEDS: Naltrexone HCl 50 MG TABLET PO (09:33)
[2022-10-22] MEDS: amLODIPine Besylate 5 MG TABLET PO (09:34)
[2022-10-22] MEDS: Multivitamin TABLET 1 TAB PO (09:34)
[2022-10-22] MEDS: lamoTRIgine 100 MG TABLET 200 MG PO ×2 (09:34→20:10)
[2022-10-22] MEDS: Pramipexole Di-HCL 0.25 MG TABLET PO ×3 (09:34→20:09)
[2022-10-22] MEDS: QUEtiapine Fumarate 25 MG TABLET PO ×2 (09:34→17:00)
[2022-10-22] MEDS: Tamsulosin HCL 0.4 MG CAPSULE PO (09:34)
[2022-10-22] MEDS: Lidocaine 5 % Ointment 35 GM 1 APPL TOPICAL ×2 (09:35→20:08)
[2022-10-22] MEDS: polyethylene glycoL 3350 17 GM POWD.PACK PO (17:00)
[2022-10-22 18:00] VITALS: BP 107/66; PULSE 70; RESP 16; TEMP 36.2; O2SAT 93
[2022-10-22] MEDS: Nystatin Powder 15 GM BOTTLE 1 APPL TOPICAL (20:08)
[2022-10-22] MEDS: traZODone HCL 100 MG TABLET 200 MG PO (20:09)
[2022-10-22] MEDS: QUEtiapine Fumarate 100 MG TABLET PO (20:09)
[2022-10-22] MEDS: Latanoprost 0.005 % Ophth Sol 2.5 ML DROPS 1 DROP EYE-BOTH (20:09)
[2022-10-22] MEDS: Melatonin 3 MG TABLET 9 MG PO (20:09)
[2022-10-22] MEDS: Docusate Sodium 100 MG CAPSULE PO (20:12)
[2022-10-22] MEDS: Nortriptyline HCl 25 MG CAPSULE 50 MG PO (20:12)
--- NOTE | 2022-10-22 21:55 | HO.PSYCHPN ---
Subjective Subjective Date of Service: 10/22/22 Reason For Visit: Depression aggression Subjective Notes: Conditional Voluntary Interim History: Patient has been irritable reactive dysphoric Medication Compliance: Yes Mental Status Exam Mental Status Exam Patient Appearance: Fatigued Patient Orientation: Person, Place and Situation Level of Consciousness: Awake and Appropriate Patient Behavior: Cooperative and Anxious Mood Description: Withdrawn Affect Description: Constricted Patient Cognition Impaired: Yes Ability to Follow Directions: Good Speech Pattern: Clear Hallucinations: None Delusions: Not Present Thought Process: Linear Thought Content: positive for Circumstantial Judgement: Fair Judgement and Insight: Impaired insight into behavior Diagnostics Vital Signs (24Hr): Vital Signs - 24 hr 10/22/22 06:00 10/22/22 18:00 Temperature 96.7 F L 97.2 F Pulse Rate 80 70 Respiratory Rate 18 16 Blood Pressure 112/68 107/66 Pulse Oximetry 92 93 Oxygen Delivery Method Room Air Room Air BMI result Body Mass Index 28.8 Labs Results: 10/20/22 14:26 10/03/22 19:19 Labs: Laboratory Results - last 48 hr 10/21/22 11:46 GGT 135 H Imaging Radiology Impressions: ITS Impressions Chest X-Ray 10/20/22 15:45 IMPRESSION: 1. Low lung volumes with bibasilar linear disc atelectasis versus scarring. 2. No airspace consolidation or effusion. Medications Medications Current Medications Acetaminophen (Acetaminophen 325 Mg Tablet) 650 mg PO Q6H PRN PRN Reason: Headache/Pain Mild Scale (1-3) Last Admin: 10/22/22 06:05 Dose: 650 mg Al Hydroxide/Mg Hydroxide (Magnesium Hydrox/Alum Hydrox 30 Ml Oral.Susp) 30 ml PO Q6H PRN PRN Reason: Heartburn/Nausea Last Admin: 10/19/22 18:47 Dose: 30 ml Albuterol Sulfate (Albuterol Sulfate 90 Mcg 8 Gm Inhaler) 2 puff INHALE Q6H PRN PRN Reason: Wheezing Amlodipine Besylate (Amlodipine Besylate 5 Mg Tablet) 5 mg PO DAILY [facility]; Protocol Last Admin: 10/22/22 09:34 Dose: 5 mg Benzocaine (Throat Lozenge, Medicated Lozenge) 1 lozenge MUCOUS MEM Q2H PRN PRN Reason: Sore Throat Last Admin: 10/06/22 18:51 Dose: 1 lozenge Calcium Polycarbophil (Calcium Polycarbophil Tablet) 1 tab PO DAILY [facility] Last Admin: 10/22/22 09:33 Dose: 1 tab Docusate Sodium (Docusate Sodium 100 Mg Capsule) 100 mg PO DAILY PRN PRN Reason: constipation Last Admin: 10/22/22 20:12 Dose: 100 mg Escitalopram Oxalate (Escitalopram Oxalate 5 Mg Tablet) 5 mg PO DAILY [facility] Last Admin: 10/22/22 09:33 Dose: 5 mg Finasteride (Finasteride 5 Mg Tablet) 5 mg PO DAILY [facility] Last Admin: 10/22/22 09:32 Dose: 5 mg Gabapentin (Gabapentin 300 Mg Capsule) 600 mg PO TID [facility] Last Admin: 10/22/22 20:09 Dose: 600 mg Hydroxyzine HCl (Hydroxyzine Hcl 25 Mg Tablet) 25 mg PO Q6H PRN PRN Reason: Anxiety Last Admin: 10/22/22 01:46 Dose: 25 mg Lamotrigine (Lamotrigine 100 Mg Tablet) 200 mg PO BID [facility] Last Admin: 10/22/22 20:10 Dose: 200 mg Latanoprost (Latanoprost 0.005 % Ophth No 2.5 Ml Drops) 1 drop EYE-BOTH BEDTIME [facility] Last Admin: 10/22/22 20:09 Dose: 1 drop Lidocaine (Lidocaine 5 % Ointment 35 Gm) 1 appl TOPICAL Q6H PRN PRN Reason: pain d/t fissure, hemorrhoid Last Admin: 10/22/22 20:08 Dose: 1 appl Lisinopril (Lisinopril 20 Mg Tablet) 20 mg PO DAILY [facility]; Protocol Last Admin: 10/22/22 09:33 Dose: 20 mg Magnesium Hydroxide (Milk Of Magnesia 30 Ml Oral.Susp) 30 ml PO DAILY PRN PRN Reason: Constipation Last Admin: 10/21/22 22:46 Dose: 30 ml Melatonin (Melatonin 3 Mg Tablet) 9 mg PO BEDTIME [facility] Last Admin: 10/22/22 20:09 Dose: 9 mg Multivitamins/Vitamin C (Multivitamin Tablet) 1 tab PO DAILY [facility] Last Admin: 10/22/22 09:34 Dose: 1 tab Naltrexone HCl (Naltrexone Hcl 50 Mg Tablet) 50 mg PO DAILY [facility] Last Admin: 10/22/22 09:33 Dose: 50 mg Nortriptyline HCl (Nortriptyline Hcl 25 Mg Capsule) 50 mg PO BEDTIME [facility] Last Admin: 10/22/22 20:12 Dose: 50 mg Nystatin (Nystatin Powder 15 Gm Bottle) 1 appl TOPICAL BID [facility] Last Admin: 10/22/22 20:08 Dose: 1 appl Omeprazole (Omeprazole 20 Mg Capsule.Dr) 20 mg PO BID@0630,1630 [facility] Last Admin: 10/22/22 17:00 Dose: 20 mg Oxybutynin Chloride (Oxybutynin Chloride Er 5 Mg Tab.Er.24) 10 mg PO DAILY [facility] Last Admin: 10/22/22 09:34 Dose: 10 mg Polyethylene Glycol (Polyethylene Glycol 3350 17 Gm Powd.Pack) 17 gm PO DAILY@1600 [facility] Last Admin: 10/22/22 17:00 Dose: 17 gm Pramipexole Dihydrochloride (Pramipexole Di-Hcl 0.25 Mg Tablet) 0.25 mg PO TID [facility] Last Admin: 10/22/22 20:09 Dose: 0.25 mg Psyllium Hydrophilic Mucilloid (Psyllium Seed 3.4 Gm Powd.Pack) 3.4 gm PO DAILY [facility] Last Admin: 10/22/22 09:35 Dose: 3.4 gm Quetiapine Fumarate (Quetiapine Fumarate 100 Mg Tablet) 100 mg PO BEDTIME [facility] Last Admin: 10/22/22 20:09 Dose: 100 mg Quetiapine Fumarate (Quetiapine Fumarate 25 Mg Tablet) 25 mg PO BID@0900,1700 [facility] Last Admin: 10/22/22 17:00 Dose: 25 mg Tamsulosin HCl (Tamsulosin Hcl 0.4 Mg Capsule) 0.4 mg PO DAILY [facility] Last Admin: 10/22/22 09:34 Dose: 0.4 mg Trazodone HCl (Trazodone Hcl 100 Mg Tablet) 200 mg PO BEDTIME [facility] Last Admin: 10/22/22 20:09 Dose: 200 mg Trazodone HCl (Trazodone Hcl 50 Mg Tablet) 50 mg PO BEDTIME PRN PRN Reason: Insomnia Last Admin: 10/22/22 01:47 Dose: 50 mg Vitamin D (Cholecalciferol (Vitamin D3) 10 Mcg Tablet) 10 mcg PO DAILY [facility] Last Admin: 10/22/22 09:33 Dose: 10 mcg Allergies Allergies Allergy/AdvReac Type Severity Reaction Status Date / Time fentanyl [FENTANYL] Allergy Intermediate unknown Verified 04/08/22 07:00 Assessment & Plan Assessment & Plan (1) Cognitive and neurobehavioral dysfunction following brain injury: Status: Acute Code(s): G31.89 - Other specified degenerative diseases of nervous system; F09 - Unspecified mental disorder due to known physiological condition; S06.9X9S - Unspecified intracranial injury with loss of consciousness of unspecified duration, sequela (2) Major depressive disorder, recurrent severe without psychotic features: Status: Acute Code(s): F33.2 - Major depressive disorder, recurrent severe without psychotic features Plan 1. Start naltrexone 50 mg p.o. daily. 2 increase seroquel 50 bid 100 hs . 3 d/c planning [facility] has not yet called . try and go over response prevention alt when feeling not cared for 10/08/22 Pt depressed irritanble limited judgement re his behavoir 10/10/22 Pt depressed labile irritable appears manipulative at times re needs left pants down in front of nurses seems quite hostile at times very limited judgenet insight PT consult 10/11 continue tx. 10/12 continue tx. 10/13/22 Pt given feedback regarding his cooperativity and ability to engage in tx 10/14/22 cont tx plan gi input pt asking for pt reevaluation feels he can participate better more effectively at this time cont nortiptyline seroquel lamictal pt needs encouragement to stay on track interpersonal awareness 10/15/2022 Continue treatment plan await GI consult encourage acceptance relaxation skills monitor mood and safety 10/16/2022 Patient seen in psychiatric follow-up case reviewed with treatment team. Patient having a difficult time reviewed potential options for discharge which include whether a DDS [place] [facility] is available and patient has required more physical care over the past year to 2 years and may need a long-term care placement if [place] [facility] facility is not available that would be able to take her of his needs. The patient does seem to have more insight into negative consequences of not maintaining his physical strength and interpersonal issues with [place] [facility] staff patient has not made threatening comments can be sarcastic he is asking to go back Lexapro feels he had less anxiety 10/17/22 Pt started on Lexapro continue nortriptyline Seroquel encourage cooperative E patient does have longstanding sarcasm as a defense cont tx plan upcoming mtg dds for d/c planning 10/18/22 No changes, wound consult as pt reporting pain and concern for bed sore 10/19/22 no changes, continue tx 10/20/22 d/c planning lower seroquel ck covid cbc cxr cough 10/21/22 GGT lowered from 149 to 138 in 2 weeks. Discussed alcohol abuse 10/22/2022 Patient irritable reactive difficulty feeling out of control and needing others. Trying to review behavioral skills problem-solving I spent minutes with the patient and/or on the patient floor today, greater than?50% of which was spent counseling/coordinating care. Reason for contiued inpatient stay Substantial Risk for: inability to function, rapid decompensation and med/psych decompensation
[2022-10-23] MEDS: hydrOXYzine HCL 25 MG TABLET PO (01:46)
[2022-10-23] MEDS: traZODone HCL 50 MG TABLET PO (01:47)
[2022-10-23] MEDS: Omeprazole 20 MG CAPSULE.DR PO ×2 (06:21→16:39)
[2022-10-23 08:25] VITALS: BP 164/74; PULSE 74; RESP 18; TEMP 37; O2SAT 97
[2022-10-23] MEDS: Multivitamin TABLET 1 TAB PO (08:26)
[2022-10-23] MEDS: Tamsulosin HCL 0.4 MG CAPSULE PO (08:26)
[2022-10-23] MEDS: QUEtiapine Fumarate 25 MG TABLET PO ×2 (08:26→16:38)
[2022-10-23] MEDS: Finasteride 5 MG TABLET PO (08:26)
[2022-10-23] MEDS: lamoTRIgine 100 MG TABLET 200 MG PO ×2 (08:26→21:55)
[2022-10-23] MEDS: Gabapentin 300 MG CAPSULE 600 MG PO ×3 (08:26→21:56)
[2022-10-23] MEDS: amLODIPine Besylate 5 MG TABLET PO (08:26)
[2022-10-23] MEDS: calcium polycarbophiL TABLET 1 TAB PO (08:26)
[2022-10-23] MEDS: Escitalopram Oxalate 5 MG TABLET PO (08:26)
[2022-10-23] MEDS: Cholecalciferol (Vitamin D3) 10 MCG TABLET PO (08:27)
[2022-10-23] MEDS: Pramipexole Di-HCL 0.25 MG TABLET PO ×3 (08:27→21:56)
[2022-10-23] MEDS: Naltrexone HCl 50 MG TABLET PO (08:27)
[2022-10-23] MEDS: Nystatin Powder 15 GM BOTTLE 1 APPL TOPICAL ×3 (08:27→22:03)
[2022-10-23] MEDS: lisinopriL 20 MG TABLET PO (08:27)
--- NOTE | 2022-10-23 14:12 | HO.PSYCHPN ---
Subjective Subjective Date of Service: 10/23/22 Reason For Visit: Depression aggression Subjective Notes: Conditional Voluntary Interim History: Patient has been less irritable reactive dysphoric working on improving his interpersonal reactivity Medication Compliance: Yes Mental Status Exam Mental Status Exam Patient Appearance: Fatigued Patient Orientation: Person, Place and Situation Level of Consciousness: Awake and Appropriate Patient Behavior: Cooperative and Anxious Mood Description: Withdrawn Affect Description: Constricted Patient Cognition Impaired: Yes Ability to Follow Directions: Good Speech Pattern: Clear Hallucinations: None Delusions: Not Present Thought Process: Linear Thought Content: positive for Circumstantial Judgement: Fair Judgement and Insight: Impaired insight into behavior Diagnostics Vital Signs (24Hr): Vital Signs - 24 hr 10/22/22 18:00 10/23/22 08:25 Temperature 97.2 F 98.6 F Pulse Rate 70 74 Respiratory Rate 16 18 Blood Pressure 107/66 164/74 H Pulse Oximetry 93 97 Oxygen Delivery Method Room Air Room Air BMI result Body Mass Index 28.8 Labs Results: 10/20/22 14:26 10/03/22 19:19 Imaging Radiology Impressions: ITS Impressions Chest X-Ray 10/20/22 15:45 IMPRESSION: 1. Low lung volumes with bibasilar linear disc atelectasis versus scarring. 2. No airspace consolidation or effusion. Medications Medications Current Medications Acetaminophen (Acetaminophen 325 Mg Tablet) 650 mg PO Q6H PRN PRN Reason: Headache/Pain Mild Scale (1-3) Last Admin: 10/22/22 06:05 Dose: 650 mg Al Hydroxide/Mg Hydroxide (Magnesium Hydrox/Alum Hydrox 30 Ml Oral.Susp) 30 ml PO Q6H PRN PRN Reason: Heartburn/Nausea Last Admin: 10/19/22 18:47 Dose: 30 ml Albuterol Sulfate (Albuterol Sulfate 90 Mcg 8 Gm Inhaler) 2 puff INHALE Q6H PRN PRN Reason: Wheezing Amlodipine Besylate (Amlodipine Besylate 5 Mg Tablet) 5 mg PO DAILY [facility]; Protocol Last Admin: 10/23/22 08:26 Dose: 5 mg Benzocaine (Throat Lozenge, Medicated Lozenge) 1 lozenge MUCOUS MEM Q2H PRN PRN Reason: Sore Throat Last Admin: 10/06/22 18:51 Dose: 1 lozenge Calcium Polycarbophil (Calcium Polycarbophil Tablet) 1 tab PO DAILY [facility] Last Admin: 10/23/22 08:26 Dose: 1 tab Docusate Sodium (Docusate Sodium 100 Mg Capsule) 100 mg PO DAILY PRN PRN Reason: constipation Last Admin: 10/22/22 20:12 Dose: 100 mg Escitalopram Oxalate (Escitalopram Oxalate 5 Mg Tablet) 5 mg PO DAILY [facility] Last Admin: 10/23/22 08:26 Dose: 5 mg Finasteride (Finasteride 5 Mg Tablet) 5 mg PO DAILY [facility] Last Admin: 10/23/22 08:26 Dose: 5 mg Gabapentin (Gabapentin 300 Mg Capsule) 600 mg PO TID [facility] Last Admin: 10/23/22 08:26 Dose: 600 mg Hydroxyzine HCl (Hydroxyzine Hcl 25 Mg Tablet) 25 mg PO Q6H PRN PRN Reason: Anxiety Last Admin: 10/23/22 01:46 Dose: 25 mg Lamotrigine (Lamotrigine 100 Mg Tablet) 200 mg PO BID [facility] Last Admin: 10/23/22 08:26 Dose: 200 mg Latanoprost (Latanoprost 0.005 % Ophth No 2.5 Ml Drops) 1 drop EYE-BOTH BEDTIME [facility] Last Admin: 10/22/22 20:09 Dose: 1 drop Lidocaine (Lidocaine 5 % Ointment 35 Gm) 1 appl TOPICAL Q6H PRN PRN Reason: pain d/t fissure, hemorrhoid Last Admin: 10/22/22 20:08 Dose: 1 appl Lisinopril (Lisinopril 20 Mg Tablet) 20 mg PO DAILY [facility]; Protocol Last Admin: 10/23/22 08:27 Dose: 20 mg Magnesium Hydroxide (Milk Of Magnesia 30 Ml Oral.Susp) 30 ml PO DAILY PRN PRN Reason: Constipation Last Admin: 10/21/22 22:46 Dose: 30 ml Melatonin (Melatonin 3 Mg Tablet) 9 mg PO BEDTIME [facility] Last Admin: 10/22/22 20:09 Dose: 9 mg Multi-Ingred Cream/Lotion/Oil/Oint (Mineral Oil/Petrolatum,White 106 Gm Tube) 1 appl TOPICAL BID [facility]; Protocol Multivitamins/Vitamin C (Multivitamin Tablet) 1 tab PO DAILY [facility] Last Admin: 10/23/22 08:26 Dose: 1 tab Naltrexone HCl (Naltrexone Hcl 50 Mg Tablet) 50 mg PO DAILY [facility] Last Admin: 10/23/22 08:27 Dose: 50 mg Nortriptyline HCl (Nortriptyline Hcl 25 Mg Capsule) 50 mg PO BEDTIME [facility] Last Admin: 10/22/22 20:12 Dose: 50 mg Nystatin (Nystatin Powder 15 Gm Bottle) 1 appl TOPICAL BID [facility] Last Admin: 10/23/22 08:27 Dose: 1 appl Omeprazole (Omeprazole 20 Mg Capsule.Dr) 20 mg PO BID@0630,1630 [facility] Last Admin: 10/23/22 06:21 Dose: 20 mg Oxybutynin Chloride (Oxybutynin Chloride Er 5 Mg Tab.Er.24) 10 mg PO DAILY [facility] Last Admin: 10/23/22 08:25 Dose: 10 mg Polyethylene Glycol (Polyethylene Glycol 3350 17 Gm Powd.Pack) 17 gm PO DAILY@1600 [facility] Last Admin: 10/22/22 17:00 Dose: 17 gm Pramipexole Dihydrochloride (Pramipexole Di-Hcl 0.25 Mg Tablet) 0.25 mg PO TID [facility] Last Admin: 10/23/22 08:27 Dose: 0.25 mg Psyllium Hydrophilic Mucilloid (Psyllium Seed 3.4 Gm Powd.Pack) 3.4 gm PO DAILY [facility] Last Admin: 10/23/22 08:23 Dose: 3.4 gm Quetiapine Fumarate (Quetiapine Fumarate 100 Mg Tablet) 100 mg PO BEDTIME [facility] Last Admin: 10/22/22 20:09 Dose: 100 mg Quetiapine Fumarate (Quetiapine Fumarate 25 Mg Tablet) 25 mg PO BID@0900,1700 [facility] Last Admin: 10/23/22 08:26 Dose: 25 mg Tamsulosin HCl (Tamsulosin Hcl 0.4 Mg Capsule) 0.4 mg PO DAILY [facility] Last Admin: 10/23/22 08:26 Dose: 0.4 mg Trazodone HCl (Trazodone Hcl 100 Mg Tablet) 200 mg PO BEDTIME [facility] Last Admin: 10/22/22 20:09 Dose: 200 mg Trazodone HCl (Trazodone Hcl 50 Mg Tablet) 50 mg PO BEDTIME PRN PRN Reason: Insomnia Last Admin: 10/23/22 01:47 Dose: 50 mg Vitamin D (Cholecalciferol (Vitamin D3) 10 Mcg Tablet) 10 mcg PO DAILY [facility] Last Admin: 10/23/22 08:27 Dose: 10 mcg Allergies Allergies Allergy/AdvReac Type Severity Reaction Status Date / Time fentanyl [FENTANYL] Allergy Intermediate unknown Verified 04/08/22 07:00 Assessment & Plan Assessment & Plan (1) Cognitive and neurobehavioral dysfunction following brain injury: Status: Acute Code(s): G31.89 - Other specified degenerative diseases of nervous system; F09 - Unspecified mental disorder due to known physiological condition; S06.9X9S - Unspecified intracranial injury with loss of consciousness of unspecified duration, sequela (2) Major depressive disorder, recurrent severe without psychotic features: Status: Acute Code(s): F33.2 - Major depressive disorder, recurrent severe without psychotic features Plan 1. Start naltrexone 50 mg p.o. daily. 2 increase seroquel 50 bid 100 hs . 3 d/c planning [facility] has not yet called . try and go over response prevention alt when feeling not cared for 10/08/22 Pt depressed irritanble limited judgement re his behavoir 10/10/22 Pt depressed labile irritable appears manipulative at times re needs left pants down in front of nurses seems quite hostile at times very limited judgenet insight PT consult 10/11 continue tx. 10/12 continue tx. 10/13/22 Pt given feedback regarding his cooperativity and ability to engage in tx 10/14/22 cont tx plan gi input pt asking for pt reevaluation feels he can participate better more effectively at this time cont nortiptyline seroquel lamictal pt needs encouragement to stay on track interpersonal awareness 10/15/2022 Continue treatment plan await GI consult encourage acceptance relaxation skills monitor mood and safety 10/16/2022 Patient seen in psychiatric follow-up case reviewed with treatment team. Patient having a difficult time reviewed potential options for discharge which include whether a DDS nursing home is available and patient has required more physical care over the past year to 2 years and may need a long-term care placement if nursing home is not available that would be able to take her of his needs. The patient does seem to have more insight into negative consequences of not maintaining his physical strength and interpersonal issues with nursing home staff patient has not made threatening comments can be sarcastic he is asking to go back Lexapro feels he had less anxiety 10/17/22 Pt started on Lexapro continue nortriptyline Seroquel encourage cooperative E patient does have longstanding sarcasm as a defense cont tx plan upcoming mtg dds for d/c planning 10/18/22 No changes, wound consult as pt reporting pain and concern for bed sore 10/19/22 no changes, continue tx 10/20/22 d/c planning lower seroquel ck covid cbc cxr cough 10/21/22 GGT lowered from 149 to 138 in 2 weeks. Discussed alcohol abuse 10/22/2022 Patient irritable reactive difficulty feeling out of control and needing others. Trying to review behavioral skills problem-solving 10/23/22 Continue plan of care patient working with OT continue Lexapro Seroquel tapered Med consult I spent minutes with the patient and/or on the patient floor today, greater than?50% of which was spent counseling/coordinating care. Reason for contiued inpatient stay Substantial Risk for: inability to function, rapid decompensation and med/psych decompensation
[2022-10-23] MEDS: polyethylene glycoL 3350 17 GM POWD.PACK PO (16:38)
[2022-10-23 18:00] VITALS: BP 127/79; PULSE 64; RESP 18; TEMP 36.2; O2SAT 92
[2022-10-23] MEDS: Nortriptyline HCl 25 MG CAPSULE 50 MG PO (21:56)
[2022-10-23] MEDS: QUEtiapine Fumarate 100 MG TABLET PO (21:56)
[2022-10-23] MEDS: Melatonin 3 MG TABLET 9 MG PO (21:56)
[2022-10-23] MEDS: traZODone HCL 100 MG TABLET 200 MG PO (21:56)
[2022-10-23] MEDS: Docusate Sodium 100 MG CAPSULE PO (22:02)
[2022-10-23] MEDS: Latanoprost 0.005 % Ophth Sol 2.5 ML DROPS 1 DROP EYE-BOTH (22:03)
[2022-10-24] MEDS: hydrOXYzine HCL 25 MG TABLET PO (03:11)
[2022-10-24] MEDS: traZODone HCL 50 MG TABLET PO (03:11)
[2022-10-24] MEDS: Omeprazole 20 MG CAPSULE.DR PO ×2 (06:15→16:43)
[2022-10-24] MEDS: Acetaminophen 325 MG TABLET 650 MG PO (06:30)
[2022-10-24] MEDS: Multivitamin TABLET 1 TAB PO (09:32)
[2022-10-24] MEDS: lamoTRIgine 100 MG TABLET 200 MG PO ×2 (09:32→21:33)
[2022-10-24] MEDS: QUEtiapine Fumarate 25 MG TABLET PO ×2 (09:32→16:43)
[2022-10-24] MEDS: Pramipexole Di-HCL 0.25 MG TABLET PO ×3 (09:32→21:34)
[2022-10-24] MEDS: Escitalopram Oxalate 5 MG TABLET PO (09:32)
[2022-10-24] MEDS: Gabapentin 300 MG CAPSULE 600 MG PO ×3 (09:32→21:33)
[2022-10-24] MEDS: Tamsulosin HCL 0.4 MG CAPSULE PO (09:32)
[2022-10-24] MEDS: calcium polycarbophiL TABLET 1 TAB PO (09:32)
[2022-10-24] MEDS: amLODIPine Besylate 5 MG TABLET PO (09:33)
[2022-10-24] MEDS: Finasteride 5 MG TABLET PO (09:34)
[2022-10-24] MEDS: Naltrexone HCl 50 MG TABLET PO (09:34)
[2022-10-24] MEDS: Cholecalciferol (Vitamin D3) 10 MCG TABLET PO (09:34)
[2022-10-24] MEDS: lisinopriL 20 MG TABLET PO (09:34)
[2022-10-24 09:39] VITALS: BP 123/59; PULSE 69; RESP 20; TEMP 36.2; O2SAT 96
--- NOTE | 2022-10-24 10:58 | HO.PSYCHPN ---
Subjective Subjective Date of Service: 10/24/22 Reason For Visit: Depression aggression Subjective Notes: Conditional Voluntary Interim History: The nursing staff reported the patient has been visible in the unit, he complains of constipation. Also he reported that his depression is 7/10. He took last night trazodone at demanding he slept 7 hours. The social media community manager called the community case manager his case and we have an update for the disposition. On interview, the patient denies new symptoms he still dysphoric and anxious but he is able to contract for safety in the facility. He is worried that Lisinopril is causing dry cough. We will continue the treatment for as per. Divine's treatment plan. Mental Status Exam Mental Status Exam Patient Appearance: Appropriate Patient Orientation: Person and Situation Level of Consciousness: Awake and Alert Patient Behavior: Guarded and Passive Mood Description: Withdrawn Affect Description: Constricted Patient Cognition Impaired: No Ability to Follow Directions: Good Speech Pattern: Clear Hallucinations: None Delusions: Not Present Thought Process: Linear Thought Content: positive for [place] and positive for Circumstantial Judgement: Fair Diagnostics Vital Signs (24Hr): Vital Signs - 24 hr 10/23/22 18:00 10/24/22 09:39 Temperature 97.2 F 97.1 F Pulse Rate 64 69 Respiratory Rate 18 20 Blood Pressure 127/79 123/59 L Pulse Oximetry 92 96 Oxygen Delivery Method Room Air Room Air BMI result Body Mass Index 28.8 Labs Results: 10/20/22 14:26 10/03/22 19:19 Imaging Radiology Impressions: ITS Impressions Chest X-Ray 10/20/22 15:45 IMPRESSION: 1. Low lung volumes with bibasilar linear disc atelectasis versus scarring. 2. No airspace consolidation or effusion. Medications Medications Current Medications Acetaminophen (Acetaminophen 325 Mg Tablet) 650 mg PO Q6H PRN PRN Reason: Headache/Pain Mild Scale (1-3) Last Admin: 10/24/22 06:30 Dose: 650 mg Al Hydroxide/Mg Hydroxide (Magnesium Hydrox/Alum Hydrox 30 Ml Oral.Susp) 30 ml PO Q6H PRN PRN Reason: Heartburn/Nausea Last Admin: 10/19/22 18:47 Dose: 30 ml Albuterol Sulfate (Albuterol Sulfate 90 Mcg 8 Gm Inhaler) 2 puff INHALE Q6H PRN PRN Reason: Wheezing Amlodipine Besylate (Amlodipine Besylate 5 Mg Tablet) 5 mg PO DAILY [facility]; Protocol Last Admin: 10/24/22 09:33 Dose: 5 mg Benzocaine (Throat Lozenge, Medicated Lozenge) 1 lozenge MUCOUS MEM Q2H PRN PRN Reason: Sore Throat Last Admin: 10/06/22 18:51 Dose: 1 lozenge Calcium Polycarbophil (Calcium Polycarbophil Tablet) 1 tab PO DAILY [facility] Last Admin: 10/24/22 09:32 Dose: 1 tab Docusate Sodium (Docusate Sodium 100 Mg Capsule) 100 mg PO DAILY PRN PRN Reason: constipation Last Admin: 10/23/22 22:02 Dose: 100 mg Escitalopram Oxalate (Escitalopram Oxalate 5 Mg Tablet) 5 mg PO DAILY [facility] Last Admin: 10/24/22 09:32 Dose: 5 mg Finasteride (Finasteride 5 Mg Tablet) 5 mg PO DAILY [facility] Last Admin: 10/24/22 09:34 Dose: 5 mg Gabapentin (Gabapentin 300 Mg Capsule) 600 mg PO TID [facility] Last Admin: 10/24/22 09:32 Dose: 600 mg Hydroxyzine HCl (Hydroxyzine Hcl 25 Mg Tablet) 25 mg PO Q6H PRN PRN Reason: Anxiety Last Admin: 10/24/22 03:11 Dose: 25 mg Lamotrigine (Lamotrigine 100 Mg Tablet) 200 mg PO BID [facility] Last Admin: 10/24/22 09:32 Dose: 200 mg Latanoprost (Latanoprost 0.005 % Ophth No 2.5 Ml Drops) 1 drop EYE-BOTH BEDTIME [facility] Last Admin: 10/23/22 22:03 Dose: 1 drop Lidocaine (Lidocaine 5 % Ointment 35 Gm) 1 appl TOPICAL Q6H PRN PRN Reason: pain d/t fissure, hemorrhoid Last Admin: 10/22/22 20:08 Dose: 1 appl Lisinopril (Lisinopril 20 Mg Tablet) 20 mg PO DAILY [facility]; Protocol Last Admin: 10/24/22 09:34 Dose: 20 mg Magnesium Hydroxide (Milk Of Magnesia 30 Ml Oral.Susp) 30 ml PO DAILY PRN PRN Reason: Constipation Last Admin: 10/21/22 22:46 Dose: 30 ml Melatonin (Melatonin 3 Mg Tablet) 9 mg PO BEDTIME [facility] Last Admin: 10/23/22 21:56 Dose: 9 mg Multi-Ingred Cream/Lotion/Oil/Oint (Mineral Oil/Petrolatum,White 106 Gm Tube) 1 appl TOPICAL BID [facility]; Protocol Last Admin: 10/23/22 22:05 Dose: Not Given Multivitamins/Vitamin C (Multivitamin Tablet) 1 tab PO DAILY [facility] Last Admin: 10/24/22 09:32 Dose: 1 tab Naltrexone HCl (Naltrexone Hcl 50 Mg Tablet) 50 mg PO DAILY [facility] Last Admin: 10/24/22 09:34 Dose: 50 mg Nortriptyline HCl (Nortriptyline Hcl 25 Mg Capsule) 50 mg PO BEDTIME [facility] Last Admin: 10/23/22 21:56 Dose: 50 mg Nystatin (Nystatin Powder 15 Gm Bottle) 1 appl TOPICAL BID [facility] Last Admin: 10/23/22 22:03 Dose: 1 appl Omeprazole (Omeprazole 20 Mg Capsule.Dr) 20 mg PO BID@0630,1630 [facility] Last Admin: 10/24/22 06:15 Dose: 20 mg Oxybutynin Chloride (Oxybutynin Chloride Er 5 Mg Tab.Er.24) 10 mg PO DAILY [facility] Last Admin: 10/24/22 09:32 Dose: 10 mg Polyethylene Glycol (Polyethylene Glycol 3350 17 Gm Powd.Pack) 17 gm PO DAILY@1600 [facility] Last Admin: 10/23/22 16:38 Dose: 17 gm Pramipexole Dihydrochloride (Pramipexole Di-Hcl 0.25 Mg Tablet) 0.25 mg PO TID [facility] Last Admin: 10/24/22 09:32 Dose: 0.25 mg Psyllium Hydrophilic Mucilloid (Psyllium Seed 3.4 Gm Powd.Pack) 3.4 gm PO DAILY [facility] Last Admin: 10/24/22 09:34 Dose: 3.4 gm Quetiapine Fumarate (Quetiapine Fumarate 100 Mg Tablet) 100 mg PO BEDTIME [facility] Last Admin: 10/23/22 21:56 Dose: 100 mg Quetiapine Fumarate (Quetiapine Fumarate 25 Mg Tablet) 25 mg PO BID@0900,1700 [facility] Last Admin: 10/24/22 09:32 Dose: 25 mg Tamsulosin HCl (Tamsulosin Hcl 0.4 Mg Capsule) 0.4 mg PO DAILY [facility] Last Admin: 10/24/22 09:32 Dose: 0.4 mg Trazodone HCl (Trazodone Hcl 100 Mg Tablet) 200 mg PO BEDTIME [facility] Last Admin: 10/23/22 21:56 Dose: 200 mg Trazodone HCl (Trazodone Hcl 50 Mg Tablet) 50 mg PO BEDTIME PRN PRN Reason: Insomnia Last Admin: 10/24/22 03:11 Dose: 50 mg Vitamin D (Cholecalciferol (Vitamin D3) 10 Mcg Tablet) 10 mcg PO DAILY [facility] Last Admin: 10/24/22 09:34 Dose: 10 mcg Allergies Allergies Allergy/AdvReac Type Severity Reaction Status Date / Time fentanyl [FENTANYL] Allergy Intermediate unknown Verified 04/08/22 07:00 Assessment & Plan Assessment & Plan (1) Cognitive and neurobehavioral dysfunction following brain injury: Status: Acute Code(s): G31.89 - Other specified degenerative diseases of nervous system; F09 - Unspecified mental disorder due to known physiological condition; S06.9X9S - Unspecified intracranial injury with loss of consciousness of unspecified duration, sequela (2) Major depressive disorder, recurrent severe without psychotic features: Status: Acute Code(s): F33.2 - Major depressive disorder, recurrent severe without psychotic features Plan 1. Start naltrexone 50 mg p.o. daily. 2 increase seroquel 50 bid 100 hs . 3 d/c planning [facility] has not yet called . try and go over response prevention alt when feeling not cared for 10/08/22 Pt depressed irritanble limited judgement re his behavoir 10/10/22 Pt depressed labile irritable appears manipulative at times re needs left pants down in front of nurses seems quite hostile at times very limited judgenet insight PT consult 10/11 continue tx. 10/12 continue tx. 10/13/22 Pt given feedback regarding his cooperativity and ability to engage in tx 10/14/22 cont tx plan gi input pt asking for pt reevaluation feels he can participate better more effectively at this time cont nortiptyline seroquel lamictal pt needs encouragement to stay on track interpersonal awareness 10/15/2022 Continue treatment plan await GI consult encourage acceptance relaxation skills monitor mood and safety 10/16/2022 Patient seen in psychiatric follow-up case reviewed with treatment team. Patient having a difficult time reviewed potential options for discharge which include whether a DDS [facility] is available and patient has required more physical care over the past year to 2 years and may need a long-term care placement if [facility] is not available that would be able to take her of his needs. The patient does seem to have more insight into negative consequences of not maintaining his physical strength and interpersonal issues with halfway staff patient has not made threatening comments can be sarcastic he is asking to go back Lexapro feels he had less anxiety 10/17/22 Pt started on Lexapro continue nortriptyline Seroquel encourage cooperative E patient does have longstanding sarcasm as a defense cont tx plan upcoming mtg dds for d/c planning 10/18/22 No changes, wound consult as pt reporting pain and concern for bed sore 10/19/22 no changes, continue tx 10/20/22 d/c planning lower seroquel ck covid cbc cxr cough 10/21/22 GGT lowered from 149 to 138 in 2 weeks. Discussed alcohol abuse 10/22/2022 Patient irritable reactive difficulty feeling out of control and needing others. Trying to review behavioral skills problem-solving 10/23/22 Continue plan of care patient working with OT continue Lexapro Seroquel tapered Med consult 10/24 No changes I spent ____20__ minutes with the patient and/or on the patient floor today, greater than?50% of which was spent counseling/coordinating care. Reason for contiued inpatient stay Substantial Risk for: inability to function, rapid decompensation and med/psych decompensation
[2022-10-24] MEDS: Mineral Oil/Petrolatum,White 106 GM Tube 1 APPL TOPICAL ×2 (11:15→21:58)
[2022-10-24] MEDS: Nystatin Powder 15 GM BOTTLE 1 APPL TOPICAL ×2 (11:16→21:57)
[2022-10-24] MEDS: polyethylene glycoL 3350 17 GM POWD.PACK PO (16:43)
[2022-10-24 18:00] VITALS: BP 114/85; PULSE 71; RESP 16; TEMP 36.2; O2SAT 96
[2022-10-24] MEDS: Melatonin 3 MG TABLET 9 MG PO (21:30)
[2022-10-24] MEDS: traZODone HCL 100 MG TABLET 200 MG PO (21:32)
[2022-10-24] MEDS: Nortriptyline HCl 25 MG CAPSULE 50 MG PO (21:33)
[2022-10-24] MEDS: QUEtiapine Fumarate 100 MG TABLET PO (21:34)
[2022-10-24] MEDS: Latanoprost 0.005 % Ophth Sol 2.5 ML DROPS 1 DROP EYE-BOTH (21:58)
[2022-10-24] MEDS: Lidocaine 5 % Ointment 35 GM 1 APPL TOPICAL (22:02)
[2022-10-25] MEDS: hydrOXYzine HCL 25 MG TABLET PO ×2 (01:59→23:17)
[2022-10-25] MEDS: traZODone HCL 50 MG TABLET PO ×2 (02:00→23:17)
[2022-10-25] MEDS: Acetaminophen 325 MG TABLET 650 MG PO ×3 (05:57→19:48)
[2022-10-25] MEDS: Omeprazole 20 MG CAPSULE.DR PO ×2 (05:57→15:55)
[2022-10-25 06:00] VITALS: BP 122/73; PULSE 64; RESP 18; TEMP 35.9; O2SAT 97
[2022-10-25] MEDS: Escitalopram Oxalate 5 MG TABLET PO (09:16)
[2022-10-25] MEDS: Cholecalciferol (Vitamin D3) 10 MCG TABLET PO (09:16)
[2022-10-25] MEDS: lisinopriL 20 MG TABLET PO (09:16)
[2022-10-25] MEDS: Tamsulosin HCL 0.4 MG CAPSULE PO (09:16)
[2022-10-25] MEDS: amLODIPine Besylate 5 MG TABLET PO (09:16)
[2022-10-25] MEDS: Gabapentin 300 MG CAPSULE 600 MG PO ×3 (09:16→20:45)
[2022-10-25] MEDS: Finasteride 5 MG TABLET PO (09:16)
[2022-10-25] MEDS: calcium polycarbophiL TABLET 1 TAB PO (09:16)
[2022-10-25] MEDS: QUEtiapine Fumarate 25 MG TABLET PO ×2 (09:16→19:49)
[2022-10-25] MEDS: Multivitamin TABLET 1 TAB PO (09:16)
[2022-10-25] MEDS: Pramipexole Di-HCL 0.25 MG TABLET PO ×3 (09:16→20:53)
[2022-10-25] MEDS: Naltrexone HCl 50 MG TABLET PO (09:16)
[2022-10-25] MEDS: Nystatin Powder 15 GM BOTTLE 1 APPL TOPICAL ×2 (09:17→21:06)
[2022-10-25] MEDS: lamoTRIgine 100 MG TABLET 200 MG PO ×2 (09:17→20:49)
[2022-10-25] MEDS: Mineral Oil/Petrolatum,White 106 GM Tube 1 APPL TOPICAL ×2 (09:17→21:06)
--- NOTE | 2022-10-25 10:00 | HO.PSYCHPN ---
Subjective Subjective Date of Service: 10/25/22 Reason For Visit: Depression aggression Subjective Notes: Conditional Voluntary Interim History: Patient has been increasingly anxious irritable agitated today. Ruminating on fears of the future and what upcoming transition could mean for him. He did respond to reassurance and urge to try an keep things and some perspective Mental Status Exam Mental Status Exam Patient Appearance: Appropriate Patient Orientation: Person, Place and Situation Level of Consciousness: Awake and Alert Patient Behavior: Guarded, Anxious and Fearful Mood Description: Withdrawn Affect Description: Constricted, Depressed, Anxious, Labile, Angry and Apprehensive Patient Cognition Impaired: No Ability to Follow Directions: Good Speech Pattern: Clear Hallucinations: None Delusions: Not Present Thought Process: Linear Thought Content: positive for [place] and positive for Circumstantial Judgement: Fair Diagnostics Vital Signs (24Hr): Vital Signs - 24 hr 10/24/22 18:00 10/25/22 06:00 Temperature 97.1 F 96.7 F L Pulse Rate 71 64 Respiratory Rate 16 18 Blood Pressure 114/85 122/73 Pulse Oximetry 96 97 Oxygen Delivery Method Room Air Room Air BMI result Body Mass Index 28.8 Labs Results: 10/20/22 14:26 10/03/22 19:19 Imaging Radiology Impressions: ITS Impressions Chest X-Ray 10/20/22 15:45 IMPRESSION: 1. Low lung volumes with bibasilar linear disc atelectasis versus scarring. 2. No airspace consolidation or effusion. Medications Medications Current Medications Acetaminophen (Acetaminophen 325 Mg Tablet) 650 mg PO Q6H PRN PRN Reason: Headache/Pain Mild Scale (1-3) Last Admin: 10/25/22 05:57 Dose: 650 mg Al Hydroxide/Mg Hydroxide (Magnesium Hydrox/Alum Hydrox 30 Ml Oral.Susp) 30 ml PO Q6H PRN PRN Reason: Heartburn/Nausea Last Admin: 10/19/22 18:47 Dose: 30 ml Albuterol Sulfate (Albuterol Sulfate 90 Mcg 8 Gm Inhaler) 2 puff INHALE Q6H PRN PRN Reason: Wheezing Amlodipine Besylate (Amlodipine Besylate 5 Mg Tablet) 5 mg PO DAILY [facility]; Protocol Last Admin: 10/25/22 09:16 Dose: 5 mg Benzocaine (Throat Lozenge, Medicated Lozenge) 1 lozenge MUCOUS MEM Q2H PRN PRN Reason: Sore Throat Last Admin: 10/06/22 18:51 Dose: 1 lozenge Calcium Polycarbophil (Calcium Polycarbophil Tablet) 1 tab PO DAILY [facility] Last Admin: 10/25/22 09:16 Dose: 1 tab Docusate Sodium (Docusate Sodium 100 Mg Capsule) 100 mg PO DAILY PRN PRN Reason: constipation Last Admin: 10/23/22 22:02 Dose: 100 mg Escitalopram Oxalate (Escitalopram Oxalate 5 Mg Tablet) 5 mg PO DAILY [facility] Last Admin: 10/25/22 09:16 Dose: 5 mg Finasteride (Finasteride 5 Mg Tablet) 5 mg PO DAILY [facility] Last Admin: 10/25/22 09:16 Dose: 5 mg Gabapentin (Gabapentin 300 Mg Capsule) 600 mg PO TID [facility] Last Admin: 10/25/22 09:16 Dose: 600 mg Hydroxyzine HCl (Hydroxyzine Hcl 25 Mg Tablet) 25 mg PO Q6H PRN PRN Reason: Anxiety Last Admin: 10/25/22 01:59 Dose: 25 mg Lamotrigine (Lamotrigine 100 Mg Tablet) 200 mg PO BID [facility] Last Admin: 10/25/22 09:17 Dose: 200 mg Latanoprost (Latanoprost 0.005 % Ophth No 2.5 Ml Drops) 1 drop EYE-BOTH BEDTIME [facility] Last Admin: 10/24/22 21:58 Dose: 1 drop Lidocaine (Lidocaine 5 % Ointment 35 Gm) 1 appl TOPICAL Q6H PRN PRN Reason: pain d/t fissure, hemorrhoid Last Admin: 10/24/22 22:02 Dose: 1 appl Lisinopril (Lisinopril 20 Mg Tablet) 20 mg PO DAILY [facility]; Protocol Last Admin: 10/25/22 09:16 Dose: 20 mg Magnesium Hydroxide (Milk Of Magnesia 30 Ml Oral.Susp) 30 ml PO DAILY PRN PRN Reason: Constipation Last Admin: 10/21/22 22:46 Dose: 30 ml Melatonin (Melatonin 3 Mg Tablet) 9 mg PO BEDTIME [facility] Last Admin: 10/24/22 21:30 Dose: 9 mg Multi-Ingred Cream/Lotion/Oil/Oint (Mineral Oil/Petrolatum,White 106 Gm Tube) 1 appl TOPICAL BID [facility]; Protocol Last Admin: 10/25/22 09:17 Dose: 1 appl Multivitamins/Vitamin C (Multivitamin Tablet) 1 tab PO DAILY [facility] Last Admin: 10/25/22 09:16 Dose: 1 tab Naltrexone HCl (Naltrexone Hcl 50 Mg Tablet) 50 mg PO DAILY [facility] Last Admin: 10/25/22 09:16 Dose: 50 mg Nortriptyline HCl (Nortriptyline Hcl 25 Mg Capsule) 50 mg PO BEDTIME [facility] Last Admin: 10/24/22 21:33 Dose: 50 mg Nystatin (Nystatin Powder 15 Gm Bottle) 1 appl TOPICAL BID [facility] Last Admin: 10/25/22 09:17 Dose: 1 appl Omeprazole (Omeprazole 20 Mg Capsule.Dr) 20 mg PO BID@0630,1630 [facility] Last Admin: 10/25/22 05:57 Dose: 20 mg Oxybutynin Chloride (Oxybutynin Chloride Er 5 Mg Tab.Er.24) 10 mg PO DAILY [facility] Last Admin: 10/25/22 09:15 Dose: 10 mg Polyethylene Glycol (Polyethylene Glycol 3350 17 Gm Powd.Pack) 17 gm PO DAILY@1600 [facility] Last Admin: 10/24/22 16:43 Dose: 17 gm Pramipexole Dihydrochloride (Pramipexole Di-Hcl 0.25 Mg Tablet) 0.25 mg PO TID [facility] Last Admin: 10/25/22 09:16 Dose: 0.25 mg Psyllium Hydrophilic Mucilloid (Psyllium Seed 3.4 Gm Powd.Pack) 3.4 gm PO DAILY [facility] Last Admin: 10/25/22 09:17 Dose: 3.4 gm Quetiapine Fumarate (Quetiapine Fumarate 100 Mg Tablet) 100 mg PO BEDTIME [facility] Last Admin: 10/24/22 21:34 Dose: 100 mg Quetiapine Fumarate (Quetiapine Fumarate 25 Mg Tablet) 25 mg PO BID@0900,1700 [facility] Last Admin: 10/25/22 09:16 Dose: 25 mg Tamsulosin HCl (Tamsulosin Hcl 0.4 Mg Capsule) 0.4 mg PO DAILY [facility] Last Admin: 10/25/22 09:16 Dose: 0.4 mg Trazodone HCl (Trazodone Hcl 100 Mg Tablet) 200 mg PO BEDTIME [facility] Last Admin: 10/24/22 21:32 Dose: 200 mg Trazodone HCl (Trazodone Hcl 50 Mg Tablet) 50 mg PO BEDTIME PRN PRN Reason: Insomnia Last Admin: 10/25/22 02:00 Dose: 50 mg Vitamin D (Cholecalciferol (Vitamin D3) 10 Mcg Tablet) 10 mcg PO DAILY [facility] Last Admin: 10/25/22 09:16 Dose: 10 mcg Allergies Allergies Allergy/AdvReac Type Severity Reaction Status Date / Time fentanyl [FENTANYL] Allergy Intermediate unknown Verified 04/08/22 07:00 Assessment & Plan Assessment & Plan (1) Cognitive and neurobehavioral dysfunction following brain injury: Status: Acute Code(s): G31.89 - Other specified degenerative diseases of nervous system; F09 - Unspecified mental disorder due to known physiological condition; S06.9X9S - Unspecified intracranial injury with loss of consciousness of unspecified duration, sequela (2) Major depressive disorder, recurrent severe without psychotic features: Status: Acute Code(s): F33.2 - Major depressive disorder, recurrent severe without psychotic features Plan 1. Start naltrexone 50 mg p.o. daily. 2 increase seroquel 50 bid 100 hs . 3 d/c planning [facility] has not yet called . try and go over response prevention alt when feeling not cared for 10/08/22 Pt depressed irritanble limited judgement re his behavoir 10/10/22 Pt depressed labile irritable appears manipulative at times re needs left pants down in front of nurses seems quite hostile at times very limited judgenet insight PT consult 10/11 continue tx. 10/12 continue tx. 10/13/22 Pt given feedback regarding his cooperativity and ability to engage in tx 10/14/22 cont tx plan gi input pt asking for pt reevaluation feels he can participate better more effectively at this time cont nortiptyline seroquel lamictal pt needs encouragement to stay on track interpersonal awareness 10/15/2022 Continue treatment plan await GI consult encourage acceptance relaxation skills monitor mood and safety 10/16/2022 Patient seen in psychiatric follow-up case reviewed with treatment team. Patient having a difficult time reviewed potential options for discharge which include whether a D[facility] is available and patient has required more physical care over the past year to 2 years and may need a long-term care placement if [facility] is not available that would be able to take her of his needs. The patient does seem to have more insight into negative consequences of not maintaining his physical strength and interpersonal issues with [facility] staff patient has not made threatening comments can be sarcastic he is asking to go back Lexapro feels he had less anxiety 10/17/22 Pt started on Lexapro continue nortriptyline Seroquel encourage cooperative E patient does have longstanding sarcasm as a defense cont tx plan upcoming mtg dds for d/c planning 10/18/22 No changes, wound consult as pt reporting pain and concern for bed sore 10/19/22 no changes, continue tx 10/20/22 d/c planning lower seroquel ck covid cbc cxr cough 10/21/22 GGT lowered from 149 to 138 in 2 weeks. Discussed alcohol abuse 10/22/2022 Patient irritable reactive difficulty feeling out of control and needing others. Trying to review behavioral skills problem-solving 10/23/22 Continue plan of care patient working with OT continue Lexapro Seroquel tapered Med consult 10/24 No changes 10/25/2022 Patient increasingly irritable depressed needs help with perspective increase Seroquel 50 b.i.d. crease nortriptyline is 75 check level check EKG cognitive behavioral strategies and perspective needs much coaching I spent minutes with the patient and/or on the patient floor today, greater than?50% of which was spent counseling/coordinating care. Reason for contiued inpatient stay Substantial Risk for: inability to function, rapid decompensation and med/psych decompensation
[2022-10-25] MEDS: polyethylene glycoL 3350 17 GM POWD.PACK PO (15:55)
[2022-10-25] MEDS: QUEtiapine Fumarate 50 MG TABLET PO (15:55)
[2022-10-25 18:00] VITALS: BP 122/73; PULSE 64; RESP 18; TEMP 35.9; O2SAT 97
[2022-10-25] MEDS: Nortriptyline HCl 25 MG CAPSULE 75 MG PO (20:42)
[2022-10-25] MEDS: Melatonin 3 MG TABLET 9 MG PO (20:47)
[2022-10-25] MEDS: traZODone HCL 100 MG TABLET 200 MG PO (20:48)
[2022-10-25] MEDS: QUEtiapine Fumarate 100 MG TABLET PO (20:51)
[2022-10-25] MEDS: Latanoprost 0.005 % Ophth Sol 2.5 ML DROPS 1 DROP EYE-BOTH (21:06)
[2022-10-26] MEDS: QUEtiapine Fumarate 25 MG TABLET PO (02:23)
[2022-10-26] MEDS: Acetaminophen 325 MG TABLET 650 MG PO (02:24)
[2022-10-26 06:00] VITALS: PULSE 68; RESP 18; TEMP 35.9; O2SAT 93
[2022-10-26] MEDS: Finasteride 5 MG TABLET PO (09:11)
[2022-10-26] MEDS: Gabapentin 300 MG CAPSULE 600 MG PO ×3 (09:11→20:51)
[2022-10-26] MEDS: Naltrexone HCl 50 MG TABLET PO (09:11)
[2022-10-26] MEDS: Multivitamin TABLET 1 TAB PO (09:12)
[2022-10-26] MEDS: QUEtiapine Fumarate 50 MG TABLET PO ×2 (09:12→20:51)
[2022-10-26] MEDS: calcium polycarbophiL TABLET 1 TAB PO (09:12)
[2022-10-26] MEDS: lamoTRIgine 100 MG TABLET 200 MG PO ×2 (09:12→20:51)
[2022-10-26] MEDS: Pramipexole Di-HCL 0.25 MG TABLET PO ×3 (09:12→20:51)
[2022-10-26] MEDS: Escitalopram Oxalate 10 MG TABLET PO (09:12)
[2022-10-26] MEDS: lisinopriL 20 MG TABLET PO (09:12)
[2022-10-26] MEDS: amLODIPine Besylate 5 MG TABLET PO (09:12)
[2022-10-26] MEDS: Omeprazole 20 MG CAPSULE.DR PO ×2 (09:12→15:41)
[2022-10-26] MEDS: Tamsulosin HCL 0.4 MG CAPSULE PO (09:12)
[2022-10-26] MEDS: Cholecalciferol (Vitamin D3) 10 MCG TABLET PO (09:12)
[2022-10-26] MEDS: Lidocaine 5 % Ointment 35 GM 1 APPL TOPICAL ×3 (09:16→20:50)
--- NOTE | 2022-10-26 10:27 | HO.PSYCHPN ---
Subjective Subjective Date of Service: 10/26/22 Reason For Visit: Depression aggression Subjective Notes: Conditional Voluntary Interim History: Patient somewhat less irritable and ruminating today patient complains of rectal area pain wound consult placed Medication Compliance: Yes Mental Status Exam Mental Status Exam Patient Appearance: Appropriate Patient Orientation: Person, Place and Situation Level of Consciousness: Awake and Alert Patient Behavior: Guarded, Anxious and Fearful Mood Description: Withdrawn Affect Description: Constricted, Depressed, Anxious, Labile, Angry and Apprehensive Patient Cognition Impaired: No Ability to Follow Directions: Good Speech Pattern: Clear Hallucinations: None Delusions: Not Present Thought Process: Linear Thought Content: positive for L[place] and positive for Circumstantial Judgement: Fair Diagnostics Vital Signs (24Hr): Vital Signs - 24 hr 10/25/22 18:00 Temperature 96.7 F L Pulse Rate 64 Respiratory Rate 18 Blood Pressure 122/73 Pulse Oximetry 97 Oxygen Delivery Method Room Air BMI result Body Mass Index 28.8 Labs Results: 10/20/22 14:26 10/03/22 19:19 Imaging Radiology Impressions: ITS Impressions Chest X-Ray 10/20/22 15:45 IMPRESSION: 1. Low lung volumes with bibasilar linear disc atelectasis versus scarring. 2. No airspace consolidation or effusion. Medications Medications Current Medications Acetaminophen (Acetaminophen 325 Mg Tablet) 650 mg PO Q6H PRN PRN Reason: Headache/Pain Mild Scale (1-3) Last Admin: 10/26/22 02:24 Dose: 650 mg Al Hydroxide/Mg Hydroxide (Magnesium Hydrox/Alum Hydrox 30 Ml Oral.Susp) 30 ml PO Q6H PRN PRN Reason: Heartburn/Nausea Last Admin: 10/19/22 18:47 Dose: 30 ml Albuterol Sulfate (Albuterol Sulfate 90 Mcg 8 Gm Inhaler) 2 puff INHALE Q6H PRN PRN Reason: Wheezing Amlodipine Besylate (Amlodipine Besylate 5 Mg Tablet) 5 mg PO DAILY [facility]Z; Protocol Last Admin: 10/26/22 09:12 Dose: 5 mg Benzocaine (Throat Lozenge, Medicated Lozenge) 1 lozenge MUCOUS MEM Q2H PRN PRN Reason: Sore Throat Last Admin: 10/06/22 18:51 Dose: 1 lozenge Calcium Polycarbophil (Calcium Polycarbophil Tablet) 1 tab PO DAILY TAZ Last Admin: 10/26/22 09:12 Dose: 1 tab Docusate Sodium (Docusate Sodium 100 Mg Capsule) 100 mg PO DAILY PRN PRN Reason: constipation Last Admin: 10/23/22 22:02 Dose: 100 mg Escitalopram Oxalate (Escitalopram Oxalate 10 Mg Tablet) 10 mg PO DAILY ON LICENSE OF [facility] Last Admin: 10/26/22 09:12 Dose: 10 mg Finasteride (Finasteride 5 Mg Tablet) 5 mg PO DAILY ON LICENSE OF [facility] Last Admin: 10/26/22 09:11 Dose: 5 mg Gabapentin (Gabapentin 300 Mg Capsule) 600 mg PO TID ON LICENSE OF [facility] Last Admin: 10/26/22 09:11 Dose: 600 mg Hydroxyzine HCl (Hydroxyzine Hcl 25 Mg Tablet) 25 mg PO Q6H PRN PRN Reason: Anxiety Last Admin: 10/25/22 23:17 Dose: 25 mg Lamotrigine (Lamotrigine 100 Mg Tablet) 200 mg PO BID ON LICENSE OF [facility] Last Admin: 10/26/22 09:12 Dose: 200 mg Latanoprost (Latanoprost 0.005 % Ophth No 2.5 Ml Drops) 1 drop EYE-BOTH BEDTIME ON LICENSE OF [facility] Last Admin: 10/25/22 21:06 Dose: 1 drop Lidocaine (Lidocaine 5 % Ointment 35 Gm) 1 appl TOPICAL Q6H PRN PRN Reason: pain d/t fissure, hemorrhoid Last Admin: 10/26/22 09:16 Dose: 1 appl Lisinopril (Lisinopril 20 Mg Tablet) 20 mg PO DAILY ON LICENSE OF [facility]; Protocol Last Admin: 10/26/22 09:12 Dose: 20 mg Magnesium Hydroxide (Milk Of Magnesia 30 Ml Oral.Susp) 30 ml PO DAILY PRN PRN Reason: Constipation Last Admin: 10/21/22 22:46 Dose: 30 ml Melatonin (Melatonin 3 Mg Tablet) 9 mg PO BEDTIME [facility]Z Last Admin: 10/25/22 20:47 Dose: 9 mg Multi-Ingred Cream/Lotion/Oil/Oint (Mineral Oil/Petrolatum,White 106 Gm Tube) 1 appl TOPICAL BID ON LICENSE OF [facility]; Protocol Last Admin: 10/25/22 21:06 Dose: 1 appl Multivitamins/Vitamin C (Multivitamin Tablet) 1 tab PO DAILY ON LICENSE OF [facility] Last Admin: 10/26/22 09:12 Dose: 1 tab Naltrexone HCl (Naltrexone Hcl 50 Mg Tablet) 50 mg PO DAILY ON LICENSE OF [facility] Last Admin: 10/26/22 09:11 Dose: 50 mg Nortriptyline HCl (Nortriptyline Hcl 25 Mg Capsule) 75 mg PO BEDTIME ON LICENSE OF [facility] Last Admin: 10/25/22 20:42 Dose: 75 mg Nystatin (Nystatin Powder 15 Gm Bottle) 1 appl TOPICAL BID ON LICENSE OF [facility] Last Admin: 10/25/22 21:06 Dose: 1 appl Omeprazole (Omeprazole 20 Mg Capsule.Dr) 20 mg PO BID@0630,1630 ON LICENSE OF [facility] Last Admin: 10/26/22 09:12 Dose: 20 mg Oxybutynin Chloride (Oxybutynin Chloride Er 5 Mg Tab.Er.24) 10 mg PO DAILY ON LICENSE OF [facility] Last Admin: 10/26/22 09:12 Dose: 10 mg Polyethylene Glycol (Polyethylene Glycol 3350 17 Gm Powd.Pack) 17 gm PO DAILY@1600 ON LICENSE OF [facility] Last Admin: 10/25/22 15:55 Dose: 17 gm Pramipexole Dihydrochloride (Pramipexole Di-Hcl 0.25 Mg Tablet) 0.25 mg PO TID ON LICENSE OF [facility] Last Admin: 10/26/22 09:12 Dose: 0.25 mg Psyllium Hydrophilic Mucilloid (Psyllium Seed 3.4 Gm Powd.Pack) 3.4 gm PO DAILY ON LICENSE OF [facility] Last Admin: 10/26/22 09:13 Dose: 3.4 gm Quetiapine Fumarate (Quetiapine Fumarate 100 Mg Tablet) 100 mg PO BEDTIME ON LICENSE OF [facility] Last Admin: 10/25/22 20:51 Dose: 100 mg Quetiapine Fumarate (Quetiapine Fumarate 25 Mg Tablet) 25 mg PO Q4H PRN PRN Reason: Anxiety Last Admin: 10/26/22 02:23 Dose: 25 mg Quetiapine Fumarate (Quetiapine Fumarate 50 Mg Tablet) 50 mg PO BID@0900,1700 ON LICENSE OF [facility] Last Admin: 10/26/22 09:12 Dose: 50 mg Tamsulosin HCl (Tamsulosin Hcl 0.4 Mg Capsule) 0.4 mg PO DAILY ON LICENSE OF [facility] Last Admin: 10/26/22 09:12 Dose: 0.4 mg Trazodone HCl (Trazodone Hcl 100 Mg Tablet) 200 mg PO BEDTIME ON LICENSE OF [facility] Last Admin: 10/25/22 20:48 Dose: 200 mg Trazodone HCl (Trazodone Hcl 50 Mg Tablet) 50 mg PO BEDTIME PRN PRN Reason: Insomnia Last Admin: 10/25/22 23:17 Dose: 50 mg Vitamin D (Cholecalciferol (Vitamin D3) 10 Mcg Tablet) 10 mcg PO DAILY [facility]Z Last Admin: 10/26/22 09:12 Dose: 10 mcg Allergies Allergies Allergy/AdvReac Type Severity Reaction Status Date / Time fentanyl [FENTANYL] Allergy Intermediate unknown Verified 04/08/22 07:00 Assessment & Plan Assessment & Plan (1) Cognitive and neurobehavioral dysfunction following brain injury: Status: Acute Code(s): G31.89 - Other specified degenerative diseases of nervous system; F09 - Unspecified mental disorder due to known physiological condition; S06.9X9S - Unspecified intracranial injury with loss of consciousness of unspecified duration, sequela (2) Major depressive disorder, recurrent severe without psychotic features: Status: Acute Code(s): F33.2 - Major depressive disorder, recurrent severe without psychotic features Plan 1. Start naltrexone 50 mg p.o. daily. 2 increase seroquel 50 bid 100 hs . 3 d/c planning [facility] has not yet called . try and go over response prevention alt when feeling not cared for 10/08/22 Pt depressed irritanble limited judgement re his behavoir 10/10/22 Pt depressed labile irritable appears manipulative at times re needs left pants down in front of nurses seems quite hostile at times very limited judgenet insight PT consult 10/11 continue tx. 10/12 continue tx. 10/13/22 Pt given feedback regarding his cooperativity and ability to engage in tx 10/14/22 cont tx plan gi input pt asking for pt reevaluation feels he can participate better more effectively at this time cont nortiptyline seroquel lamictal pt needs encouragement to stay on track interpersonal awareness 10/15/2022 Continue treatment plan await GI consult encourage acceptance relaxation skills monitor mood and safety 10/16/2022 Patient seen in psychiatric follow-up case reviewed with treatment team. Patient having a difficult time reviewed potential options for discharge which include whether a DDS long-term is available and patient has required more physical care over the past year to 2 years and may need a long-term care placement if long-term is not available that would be able to take her of his needs. The patient does seem to have more insight into negative consequences of not maintaining his physical strength and interpersonal issues with long-term staff patient has not made threatening comments can be sarcastic he is asking to go back Lexapro feels he had less anxiety 10/17/22 Pt started on Lexapro continue nortriptyline Seroquel encourage cooperative E patient does have longstanding sarcasm as a defense cont tx plan upcoming mtg dds for d/c planning 10/18/22 No changes, wound consult as pt reporting pain and concern for bed sore 10/19/22 no changes, continue tx 10/20/22 d/c planning lower seroquel ck covid cbc cxr cough 10/21/22 GGT lowered from 149 to 138 in 2 weeks. Discussed alcohol abuse 10/22/2022 Patient irritable reactive difficulty feeling out of control and needing others. Trying to review behavioral skills problem-solving 10/23/22 Continue plan of care patient working with OT continue Lexapro Seroquel tapered Med consult 10/24 No changes 10/25/2022 Patient increasingly irritable depressed needs help with perspective increase Seroquel 50 b.i.d. crease nortriptyline is 75 check level check EKG cognitive behavioral strategies and perspective needs much coaching 10/26/2022 Patient somewhat improved from yesterday Wound consult On increase nor trip and Seroquel I spent minutes with the patient and/or on the patient floor today, greater than?50% of which was spent counseling/coordinating care. Reason for contiued inpatient stay Substantial Risk for: inability to function, rapid decompensation and med/psych decompensation
[2022-10-26] MEDS: Mineral Oil/Petrolatum,White 106 GM Tube 1 APPL TOPICAL ×2 (13:31→20:49)
[2022-10-26] MEDS: Nystatin Powder 15 GM BOTTLE 1 APPL TOPICAL ×2 (13:31→20:49)
[2022-10-26] MEDS: polyethylene glycoL 3350 17 GM POWD.PACK PO (15:42)
[2022-10-26 20:39] VITALS: BP 143/73; PULSE 67; RESP 16; TEMP 36.2; O2SAT 95
[2022-10-26] MEDS: Latanoprost 0.005 % Ophth Sol 2.5 ML DROPS 1 DROP EYE-BOTH (20:49)
[2022-10-26] MEDS: Nortriptyline HCl 25 MG CAPSULE 75 MG PO (20:50)
[2022-10-26] MEDS: Melatonin 3 MG TABLET 9 MG PO (20:50)
[2022-10-26] MEDS: QUEtiapine Fumarate 100 MG TABLET PO (20:51)
[2022-10-26] MEDS: traZODone HCL 100 MG TABLET 200 MG PO (20:51)
[2022-10-27] MEDS: traZODone HCL 50 MG TABLET PO ×2 (02:23→22:10)
[2022-10-27] MEDS: hydrOXYzine HCL 25 MG TABLET PO ×2 (02:23→22:10)
[2022-10-27] MEDS: Omeprazole 20 MG CAPSULE.DR PO ×2 (06:53→16:31)
[2022-10-27 07:55] VITALS: BP 85/58; PULSE 88; RESP 14; TEMP 36.4; O2SAT 97
--- NOTE | 2022-10-27 08:00 | ECG_ITS ---
Test Reason : ON PSYCH MEDS Blood Pressure : / mmHG Vent. Rate : 078 BPM Atrial Rate : 078 BPM P-R Int : 220 ms QRS Dur : 108 ms QT Int : 408 ms P-R-T Axes : 047 -08 076 degrees QTc Int : 465 ms Sinus rhythm with 1st degree A-V block Possible Inferior infarct , age undetermined Abnormal ECG When compared with ECG of 04-OCT-2022 14:41, [place] interval has increased Referred By: Addy Haskins Electronically Signed By:SUSHILA FISHER
[2022-10-27] MEDS: calcium polycarbophiL TABLET 1 TAB PO (08:52)
[2022-10-27] MEDS: Gabapentin 300 MG CAPSULE 600 MG PO ×3 (08:52→22:08)
[2022-10-27] MEDS: Pramipexole Di-HCL 0.25 MG TABLET PO ×3 (08:53→22:10)
[2022-10-27] MEDS: Multivitamin TABLET 1 TAB PO (08:53)
[2022-10-27] MEDS: Finasteride 5 MG TABLET PO (08:53)
[2022-10-27] MEDS: lamoTRIgine 100 MG TABLET 200 MG PO ×2 (08:53→22:10)
[2022-10-27] MEDS: Cholecalciferol (Vitamin D3) 10 MCG TABLET PO (08:53)
[2022-10-27] MEDS: Naltrexone HCl 50 MG TABLET PO (08:53)
[2022-10-27] MEDS: Tamsulosin HCL 0.4 MG CAPSULE PO (08:53)
[2022-10-27] MEDS: Escitalopram Oxalate 10 MG TABLET PO (08:53)
[2022-10-27] MEDS: QUEtiapine Fumarate 50 MG TABLET PO ×2 (08:53→16:31)
[2022-10-27] MEDS: Lidocaine 5 % Ointment 35 GM 1 APPL TOPICAL ×3 (10:45→16:34)
[2022-10-27] MEDS: Mineral Oil/Petrolatum,White 106 GM Tube 1 APPL TOPICAL (10:46)
[2022-10-27] MEDS: Nystatin Powder 15 GM BOTTLE 1 APPL TOPICAL (10:46)
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
[2022-10-27] MEDS: QUEtiapine Fumarate 25 MG TABLET PO (13:03)
--- NOTE | 2022-10-27 13:33 | HO.PSYCHPN ---
Subjective Subjective Date of Service: 10/27/22 Reason For Visit: Depression aggression Subjective Notes: Conditional Voluntary Interim History: The nursing staff reported the patient had a blood pressure last night and his blood pressure medications were held. On the patient complain of a wound on his coccyx but it seems that it is note a pressure wound. He complains of depression 06/25. The social science research assistant will talk with the DDS worker regarding disposition and possibility to transfer to a different [facility]. On interview he reports dysphoria, more anxiety since Ativan was discontinued but he is able to contract for safety while he is here. We discussed options and agreed to increase Seroquel at hs. Mental Status Exam Mental Status Exam Patient Appearance: Well Grooomed Patient Orientation: Person and Situation Level of Consciousness: Awake and Appropriate Patient Behavior: Guarded and Passive Mood Description: Withdrawn and Depressed Affect Description: Constricted Patient Cognition Impaired: Yes Ability to Follow Directions: Good Speech Pattern: Clear Hallucinations: None Delusions: Not Present Thought Process: Intact Thought Content: positive for Circumstantial Judgement: Fair Diagnostics Vital Signs (24Hr): Vital Signs - 24 hr 10/26/22 20:39 10/27/22 07:55 Temperature 97.2 F 97.6 F Pulse Rate 67 88 Respiratory Rate 16 14 Blood Pressure 143/73 H 85/58 L Pulse Oximetry 95 97 Oxygen Delivery Method Room Air Room Air BMI result Body Mass Index 28.8 Labs Results: 10/20/22 14:26 10/03/22 19:19 Imaging Radiology Impressions: ITS Impressions Chest X-Ray 10/20/22 15:45 IMPRESSION: 1. Low lung volumes with bibasilar linear disc atelectasis versus scarring. 2. No airspace consolidation or effusion. Medications Medications Current Medications Acetaminophen (Acetaminophen 325 Mg Tablet) 650 mg PO Q6H PRN PRN Reason: Headache/Pain Mild Scale (1-3) Last Admin: 10/26/22 02:24 Dose: 650 mg Al Hydroxide/Mg Hydroxide (Magnesium Hydrox/Alum Hydrox 30 Ml Oral.Susp) 30 ml PO Q6H PRN PRN Reason: Heartburn/Nausea Last Admin: 10/19/22 18:47 Dose: 30 ml Albuterol Sulfate (Albuterol Sulfate 90 Mcg 8 Gm Inhaler) 2 puff INHALE Q6H PRN PRN Reason: Wheezing Amlodipine Besylate (Amlodipine Besylate 5 Mg Tablet) 5 mg PO DAILY REPLACED BY [facility]; Protocol Last Admin: 10/27/22 10:42 Dose: Not Given Benzocaine (Throat Lozenge, Medicated Lozenge) 1 lozenge MUCOUS MEM Q2H PRN PRN Reason: Sore Throat Last Admin: 10/06/22 18:51 Dose: 1 lozenge Calcium Polycarbophil (Calcium Polycarbophil Tablet) 1 tab PO DAILY REPLACED BY [facility] Last Admin: 10/27/22 08:52 Dose: 1 tab Docusate Sodium (Docusate Sodium 100 Mg Capsule) 100 mg PO DAILY PRN PRN Reason: constipation Last Admin: 10/23/22 22:02 Dose: 100 mg Escitalopram Oxalate (Escitalopram Oxalate 10 Mg Tablet) 10 mg PO DAILY REPLACED BY [facility] Last Admin: 10/27/22 08:53 Dose: 10 mg Finasteride (Finasteride 5 Mg Tablet) 5 mg PO DAILY REPLACED BY [facility] Last Admin: 10/27/22 08:53 Dose: 5 mg Gabapentin (Gabapentin 300 Mg Capsule) 600 mg PO TID REPLACED BY [facility] Last Admin: 10/27/22 08:52 Dose: 600 mg Hydroxyzine HCl (Hydroxyzine Hcl 25 Mg Tablet) 25 mg PO Q6H PRN PRN Reason: Anxiety Last Admin: 10/27/22 02:23 Dose: 25 mg Lamotrigine (Lamotrigine 100 Mg Tablet) 200 mg PO BID REPLACED BY [facility] Last Admin: 10/27/22 08:53 Dose: 200 mg Latanoprost (Latanoprost 0.005 % Ophth No 2.5 Ml Drops) 1 drop EYE-BOTH BEDTIME REPLACED BY [facility] Last Admin: 10/26/22 20:49 Dose: 1 drop Lidocaine (Lidocaine 5 % Ointment 35 Gm) 1 appl TOPICAL QID REPLACED BY [facility] Last Admin: 10/27/22 10:46 Dose: 1 appl Lisinopril (Lisinopril 20 Mg Tablet) 20 mg PO DAILY REPLACED BY [facility]; Protocol Last Admin: 10/27/22 10:42 Dose: Not Given Magnesium Hydroxide (Milk Of Magnesia 30 Ml Oral.Susp) 30 ml PO DAILY PRN PRN Reason: Constipation Last Admin: 10/21/22 22:46 Dose: 30 ml Melatonin (Melatonin 3 Mg Tablet) 9 mg PO BEDTIME REPLACED BY [facility] Last Admin: 10/26/22 20:50 Dose: 9 mg Multi-Ingred Cream/Lotion/Oil/Oint (Mineral Oil/Petrolatum,White 106 Gm Tube) 1 appl TOPICAL BID REPLACED BY [facility]; Protocol Last Admin: 10/27/22 10:46 Dose: 1 appl Multivitamins/Vitamin C (Multivitamin Tablet) 1 tab PO DAILY REPLACED BY [facility] Last Admin: 10/27/22 08:53 Dose: 1 tab Naltrexone HCl (Naltrexone Hcl 50 Mg Tablet) 50 mg PO DAILY REPLACED BY [facility] Last Admin: 10/27/22 08:53 Dose: 50 mg Nortriptyline HCl (Nortriptyline Hcl 25 Mg Capsule) 75 mg PO BEDTIME REPLACED BY [facility] Last Admin: 10/26/22 20:50 Dose: 75 mg Nystatin (Nystatin Powder 15 Gm Bottle) 1 appl TOPICAL BID REPLACED BY [facility] Last Admin: 10/27/22 10:46 Dose: 1 appl Omeprazole (Omeprazole 20 Mg Capsule.Dr) 20 mg PO BID@0630,1630 REPLACED BY [facility] Last Admin: 10/27/22 06:53 Dose: 20 mg Oxybutynin Chloride (Oxybutynin Chloride Er 5 Mg Tab.Er.24) 10 mg PO DAILY REPLACED BY [facility] Last Admin: 10/27/22 08:52 Dose: 10 mg Polyethylene Glycol (Polyethylene Glycol 3350 17 Gm Powd.Pack) 17 gm PO DAILY@1600 REPLACED BY [facility] Last Admin: 10/26/22 15:42 Dose: 17 gm Pramipexole Dihydrochloride (Pramipexole Di-Hcl 0.25 Mg Tablet) 0.25 mg PO TID REPLACED BY [facility] Last Admin: 10/27/22 08:53 Dose: 0.25 mg Psyllium Hydrophilic Mucilloid (Psyllium Seed 3.4 Gm Powd.Pack) 3.4 gm PO DAILY REPLACED BY [facility] Last Admin: 10/27/22 08:51 Dose: 3.4 gm Quetiapine Fumarate (Quetiapine Fumarate 100 Mg Tablet) 100 mg PO BEDTIME REPLACED BY [facility] Last Admin: 10/26/22 20:51 Dose: 100 mg Quetiapine Fumarate (Quetiapine Fumarate 25 Mg Tablet) 25 mg PO Q4H PRN PRN Reason: Anxiety Last Admin: 10/27/22 13:03 Dose: 25 mg Quetiapine Fumarate (Quetiapine Fumarate 50 Mg Tablet) 50 mg PO BID@0900,1700 REPLACED BY [facility] Last Admin: 10/27/22 08:53 Dose: 50 mg Tamsulosin HCl (Tamsulosin Hcl 0.4 Mg Capsule) 0.4 mg PO DAILY REPLACED BY [facility] Last Admin: 10/27/22 08:53 Dose: 0.4 mg Trazodone HCl (Trazodone Hcl 100 Mg Tablet) 200 mg PO BEDTIME REPLACED BY [facility] Last Admin: 10/26/22 20:51 Dose: 200 mg Trazodone HCl (Trazodone Hcl 50 Mg Tablet) 50 mg PO BEDTIME PRN PRN Reason: Insomnia Last Admin: 10/27/22 02:23 Dose: 50 mg Vitamin D (Cholecalciferol (Vitamin D3) 10 Mcg Tablet) 10 mcg PO DAILY REPLACED BY [facility] Last Admin: 10/27/22 08:53 Dose: 10 mcg Allergies Allergies Allergy/AdvReac Type Severity Reaction Status Date / Time fentanyl [FENTANYL] Allergy Intermediate unknown Verified 04/08/22 07:00 Assessment & Plan Assessment & Plan (1) Dermatitis, unspecified: Status: Acute Code(s): L30.9 - Dermatitis, unspecified Plan The patient is a 67-year-old male, , on his psi after TBI with a long history of depression with suicidal ideation with several prior admissions into this facility with a similar presentation. At this moment also, he has problems of housing since he will not be able to go back to his regular [facility]. The patient has a long history of alcohol use disorder that he was not able to process or work on it. Plan 1. Continue with the same treatment. 2. We will work with the social science research assistant and DDS for a proper discharge planning. 3. Continue with recommendations of Wound Care. 4. Increase Seroquel up to 150 mg po qhs. I spent ___20___ minutes with the patient and/or on the patient floor today, greater than?50% of which was spent counseling/coordinating care. Reason for contiued inpatient stay Substantial Risk for: inability to function, rapid decompensation and med/psych decompensation Time Spent With Patient Time: Total time managing care of this patient today _20___ minutes.
[2022-10-27] MEDS: polyethylene glycoL 3350 17 GM POWD.PACK PO (16:31)
[2022-10-27 21:15] VITALS: BP 111/59; PULSE 80; RESP 16; TEMP 36.6; O2SAT 92
[2022-10-27] MEDS: traZODone HCL 100 MG TABLET 200 MG PO (22:09)
[2022-10-27] MEDS: QUEtiapine Fumarate 50 MG TABLET 150 MG PO (22:09)
[2022-10-27] MEDS: Melatonin 3 MG TABLET 9 MG PO (22:10)
[2022-10-27] MEDS: Nortriptyline HCl 25 MG CAPSULE 75 MG PO (22:10)
[2022-10-27] MEDS: Acetaminophen 325 MG TABLET 650 MG PO (22:11)
[2022-10-27] MEDS: Latanoprost 0.005 % Ophth Sol 2.5 ML DROPS 1 DROP EYE-BOTH (22:19)
[2022-10-27] MEDS: Docusate Sodium 100 MG CAPSULE PO (22:28)
[2022-10-28] MEDS: traZODone HCL 50 MG TABLET PO (00:27)
[2022-10-28] MEDS: Omeprazole 20 MG CAPSULE.DR PO ×2 (05:56→15:45)
[2022-10-28] MEDS: Acetaminophen 325 MG TABLET 650 MG PO ×2 (06:08→21:04)
[2022-10-28 07:40] VITALS: PULSE 79; RESP 18; TEMP 36.6; O2SAT 98
[2022-10-28] MEDS: Finasteride 5 MG TABLET PO (08:15)
[2022-10-28] MEDS: Pramipexole Di-HCL 0.25 MG TABLET PO ×3 (08:16→21:10)
[2022-10-28] MEDS: QUEtiapine Fumarate 50 MG TABLET PO ×2 (08:16→17:20)
[2022-10-28] MEDS: Tamsulosin HCL 0.4 MG CAPSULE PO (08:16)
[2022-10-28] MEDS: lamoTRIgine 100 MG TABLET 200 MG PO ×2 (08:16→21:09)
[2022-10-28] MEDS: Multivitamin TABLET 1 TAB PO (08:16)
[2022-10-28] MEDS: Gabapentin 300 MG CAPSULE 600 MG PO ×3 (08:16→21:09)
[2022-10-28] MEDS: amLODIPine Besylate 5 MG TABLET PO (08:16)
[2022-10-28] MEDS: calcium polycarbophiL TABLET 1 TAB PO (08:16)
[2022-10-28] MEDS: Escitalopram Oxalate 10 MG TABLET PO (08:16)
[2022-10-28] MEDS: Naltrexone HCl 50 MG TABLET PO (08:16)
[2022-10-28] MEDS: Cholecalciferol (Vitamin D3) 10 MCG TABLET PO (08:16)
[2022-10-28] MEDS: lisinopriL 20 MG TABLET PO (08:17)
[2022-10-28] MEDS: Mineral Oil/Petrolatum,White 106 GM Tube 1 APPL TOPICAL ×2 (10:20→21:15)
[2022-10-28] MEDS: Lidocaine 5 % Ointment 35 GM 1 APPL TOPICAL ×4 (10:21→21:15)
[2022-10-28] MEDS: Nystatin Powder 15 GM BOTTLE 1 APPL TOPICAL (10:22)
[2022-10-28] MEDS: polyethylene glycoL 3350 17 GM POWD.PACK PO (15:11)
[2022-10-28 18:00] VITALS: BP 141/66; PULSE 67; RESP 18; TEMP 36.1; O2SAT 97
[2022-10-28] MEDS: Latanoprost 0.005 % Ophth Sol 2.5 ML DROPS 1 DROP EYE-BOTH (21:03)
[2022-10-28] MEDS: Melatonin 3 MG TABLET 9 MG PO (21:05)
[2022-10-28] MEDS: Nortriptyline HCl 25 MG CAPSULE 75 MG PO (21:06)
[2022-10-28] MEDS: traZODone HCL 100 MG TABLET 200 MG PO (21:07)
[2022-10-28] MEDS: QUEtiapine Fumarate 50 MG TABLET 150 MG PO (21:08)
[2022-10-29] MEDS: Nystatin Powder 15 GM BOTTLE 1 APPL TOPICAL ×3 (00:28→20:38)
[2022-10-29 07:30] VITALS: BP 111/61; PULSE 65; RESP 18; TEMP 36.6; O2SAT 94
[2022-10-29] MEDS: Multivitamin TABLET 1 TAB PO (08:20)
[2022-10-29] MEDS: Pramipexole Di-HCL 0.25 MG TABLET PO ×3 (08:20→20:34)
[2022-10-29] MEDS: amLODIPine Besylate 5 MG TABLET PO (08:21)
[2022-10-29] MEDS: Tamsulosin HCL 0.4 MG CAPSULE PO (08:25)
[2022-10-29] MEDS: calcium polycarbophiL TABLET 1 TAB PO (08:25)
[2022-10-29] MEDS: Naltrexone HCl 50 MG TABLET PO (08:25)
[2022-10-29] MEDS: Omeprazole 20 MG CAPSULE.DR PO ×2 (08:26→16:33)
[2022-10-29] MEDS: Escitalopram Oxalate 10 MG TABLET PO (08:26)
[2022-10-29] MEDS: lisinopriL 20 MG TABLET PO (08:26)
[2022-10-29] MEDS: Cholecalciferol (Vitamin D3) 10 MCG TABLET PO (08:26)
[2022-10-29] MEDS: QUEtiapine Fumarate 50 MG TABLET PO ×2 (08:27→16:33)
[2022-10-29] MEDS: lamoTRIgine 100 MG TABLET 200 MG PO ×2 (08:27→20:34)
[2022-10-29] MEDS: Gabapentin 300 MG CAPSULE 600 MG PO ×3 (08:27→20:34)
[2022-10-29] MEDS: Finasteride 5 MG TABLET PO (08:27)
[2022-10-29] MEDS: Acetaminophen 325 MG TABLET 650 MG PO ×2 (10:35→20:30)
[2022-10-29] MEDS: Lidocaine 5 % Ointment 35 GM 1 APPL TOPICAL ×2 (15:05→20:39)
[2022-10-29] MEDS: Mineral Oil/Petrolatum,White 106 GM Tube 1 APPL TOPICAL ×2 (15:06→20:38)
[2022-10-29] MEDS: polyethylene glycoL 3350 17 GM POWD.PACK PO (16:36)
[2022-10-29 18:00] VITALS: BP 151/62; PULSE 71; RESP 14; TEMP 36.2; O2SAT 96
[2022-10-29] MEDS: Nortriptyline HCl 25 MG CAPSULE 75 MG PO (20:31)
[2022-10-29] MEDS: traZODone HCL 100 MG TABLET 200 MG PO (20:31)
[2022-10-29] MEDS: Melatonin 3 MG TABLET 9 MG PO (20:32)
[2022-10-29] MEDS: QUEtiapine Fumarate 50 MG TABLET 150 MG PO (20:33)
[2022-10-29] MEDS: Latanoprost 0.005 % Ophth Sol 2.5 ML DROPS 1 DROP EYE-BOTH (20:38)
[2022-10-29] MEDS: Docusate Sodium 100 MG CAPSULE PO (20:53)
[2022-10-30] MEDS: traZODone HCL 50 MG TABLET PO ×2 (00:08→22:09)
[2022-10-30] MEDS: hydrOXYzine HCL 25 MG TABLET PO (00:08)
[2022-10-30 06:00] VITALS: BP 114/70; PULSE 71; RESP 16; TEMP 36.5; O2SAT 93
[2022-10-30 07:00] VITALS: BMI 31.7
[2022-10-30] MEDS: Naltrexone HCl 50 MG TABLET PO (08:22)
[2022-10-30] MEDS: Finasteride 5 MG TABLET PO (08:22)
[2022-10-30] MEDS: Cholecalciferol (Vitamin D3) 10 MCG TABLET PO (08:22)
[2022-10-30] MEDS: Gabapentin 300 MG CAPSULE 600 MG PO ×3 (08:23→22:05)
[2022-10-30] MEDS: Pramipexole Di-HCL 0.25 MG TABLET PO ×3 (08:23→22:09)
[2022-10-30] MEDS: calcium polycarbophiL TABLET 1 TAB PO (08:23)
[2022-10-30] MEDS: Omeprazole 20 MG CAPSULE.DR PO (08:23)
[2022-10-30] MEDS: Multivitamin TABLET 1 TAB PO (08:23)
[2022-10-30] MEDS: lisinopriL 20 MG TABLET PO (08:23)
[2022-10-30] MEDS: lamoTRIgine 100 MG TABLET 200 MG PO ×2 (08:23→22:10)
[2022-10-30] MEDS: QUEtiapine Fumarate 50 MG TABLET PO (08:24)
[2022-10-30] MEDS: Tamsulosin HCL 0.4 MG CAPSULE PO (08:24)
[2022-10-30] MEDS: Escitalopram Oxalate 10 MG TABLET PO (08:24)
[2022-10-30] MEDS: amLODIPine Besylate 5 MG TABLET PO (08:24)
[2022-10-30] MEDS: Acetaminophen 325 MG TABLET 650 MG PO ×2 (11:42→22:12)
[2022-10-30 16:02] LABS: Nortriptyline 54 mcg/L (50-150)
[2022-10-30] MEDS: polyethylene glycoL 3350 17 GM POWD.PACK PO (17:03)
[2022-10-30 21:00] VITALS: BP 129/67; PULSE 69; RESP 16; TEMP 36.6; O2SAT 98
[2022-10-30] MEDS: Nortriptyline HCl 25 MG CAPSULE 75 MG PO (22:04)
[2022-10-30] MEDS: Melatonin 3 MG TABLET 9 MG PO (22:06)
[2022-10-30] MEDS: QUEtiapine Fumarate 50 MG TABLET 150 MG PO (22:07)
[2022-10-30] MEDS: Docusate Sodium 100 MG CAPSULE PO (22:09)
[2022-10-30] MEDS: traZODone HCL 100 MG TABLET 200 MG PO (22:09)
--- NOTE | 2022-10-30 22:09 | P.PNPSI_ITS ---
Subjective Subjective Date of Service: 10/30/22 Reason For Visit: Depression aggression Subjective Notes: Conditional Voluntary Interim History: pt has been increasingly depressed withdrawn hopeless helpless passive si Medication Compliance: Yes Mental Status Exam Mental Status Exam Patient Appearance: Well Grooomed Patient Orientation: Person and Situation Level of Consciousness: Awake and Appropriate Patient Behavior: Guarded and Passive Mood Description: Withdrawn and Depressed Affect Description: Constricted Patient Cognition Impaired: Yes Ability to Follow Directions: Good Speech Pattern: Clear Hallucinations: None Delusions: Not Present Thought Process: Intact and Rumination Thought Content: positive for Circumstantial Depressive Symptoms: Increased Anxiety, Increased Irritability and Difficulty Concentrating Judgement: Fair Diagnostics Vital Signs (24Hr): Vital Signs - 24 hr 10/30/22 06:00 Temperature 97.7 F Pulse Rate 71 Respiratory Rate 16 Blood Pressure 114/70 Pulse Oximetry 93 Oxygen Delivery Method Room Air BMI result Body Mass Index 31.7 Labs Results: 10/20/22 14:26 10/03/22 19:19 Labs: Laboratory Results - last 48 hr 10/26/22 07:45 Nortriptyline 54 Imaging Radiology Impressions: ITS Impressions Chest X-Ray 10/20/22 15:45 IMPRESSION: 1. Low lung volumes with bibasilar linear disc atelectasis versus scarring. 2. No airspace consolidation or effusion. Medications Medications Current Medications Acetaminophen (Acetaminophen 325 Mg Tablet) 650 mg PO Q6H PRN PRN Reason: Headache/Pain Mild Scale (1-3) Last Admin: 10/30/22 11:42 Dose: 650 mg Al Hydroxide/Mg Hydroxide (Magnesium Hydrox/Alum Hydrox 30 Ml Oral.Susp) 30 ml PO Q6H PRN PRN Reason: Heartburn/Nausea Last Admin: 10/19/22 18:47 Dose: 30 ml Albuterol Sulfate (Albuterol Sulfate 90 Mcg 8 Gm Inhaler) 2 puff INHALE Q6H PRN PRN Reason: Wheezing Amlodipine Besylate (Amlodipine Besylate 5 Mg Tablet) 5 mg PO DAILY [facility]; Protocol Last Admin: 10/30/22 08:24 Dose: 5 mg Benzocaine (Throat Lozenge, Medicated Lozenge) 1 lozenge MUCOUS MEM Q2H PRN PRN Reason: Sore Throat Last Admin: 10/06/22 18:51 Dose: 1 lozenge Calcium Polycarbophil (Calcium Polycarbophil Tablet) 1 tab PO DAILY [facility] Last Admin: 10/30/22 08:23 Dose: 1 tab Docusate Sodium (Docusate Sodium 100 Mg Capsule) 100 mg PO DAILY PRN PRN Reason: constipation Last Admin: 10/29/22 20:53 Dose: 100 mg Escitalopram Oxalate (Escitalopram Oxalate 10 Mg Tablet) 10 mg PO DAILY [facility] Last Admin: 10/30/22 08:24 Dose: 10 mg Finasteride (Finasteride 5 Mg Tablet) 5 mg PO DAILY [facility] Last Admin: 10/30/22 08:22 Dose: 5 mg Gabapentin (Gabapentin 300 Mg Capsule) 600 mg PO TID [facility] Last Admin: 10/30/22 14:37 Dose: 600 mg Hydroxyzine HCl (Hydroxyzine Hcl 25 Mg Tablet) 25 mg PO Q6H PRN PRN Reason: Anxiety Last Admin: 10/30/22 00:08 Dose: 25 mg Lamotrigine (Lamotrigine 100 Mg Tablet) 200 mg PO BID [facility] Last Admin: 10/30/22 08:23 Dose: 200 mg Latanoprost (Latanoprost 0.005 % Ophth No 2.5 Ml Drops) 1 drop EYE-BOTH BEDTIME [facility] Last Admin: 10/29/22 20:38 Dose: 1 drop Lidocaine (Lidocaine 5 % Ointment 35 Gm) 1 appl TOPICAL QID [facility] Last Admin: 10/30/22 18:39 Dose: Not Given Lisinopril (Lisinopril 20 Mg Tablet) 20 mg PO DAILY [facility]; Protocol Last Admin: 10/30/22 08:23 Dose: 20 mg Magnesium Hydroxide (Milk Of Magnesia 30 Ml Oral.Susp) 30 ml PO DAILY PRN PRN Reason: Constipation Last Admin: 10/21/22 22:46 Dose: 30 ml Melatonin (Melatonin 3 Mg Tablet) 9 mg PO BEDTIME [facility] Last Admin: 10/29/22 20:32 Dose: 9 mg Multi-Ingred Cream/Lotion/Oil/Oint (Mineral Oil/Petrolatum,White 106 Gm Tube) 1 appl TOPICAL BID [facility]; Protocol Last Admin: 10/30/22 08:25 Dose: Not Given Multivitamins/Vitamin C (Multivitamin Tablet) 1 tab PO DAILY [facility] Last Admin: 10/30/22 08:23 Dose: 1 tab Naltrexone HCl (Naltrexone Hcl 50 Mg Tablet) 50 mg PO DAILY [facility] Last Admin: 10/30/22 08:22 Dose: 50 mg Nortriptyline HCl (Nortriptyline Hcl 25 Mg Capsule) 75 mg PO BEDTIME [facility] Last Admin: 10/29/22 20:31 Dose: 75 mg Nystatin (Nystatin Powder 15 Gm Bottle) 1 appl TOPICAL BID [facility] Last Admin: 10/30/22 08:25 Dose: Not Given Omeprazole (Omeprazole 20 Mg Capsule.Dr) 20 mg PO BID@0630,1630 [facility] Last Admin: 10/30/22 17:04 Dose: Not Given Oxybutynin Chloride (Oxybutynin Chloride Er 5 Mg Tab.Er.24) 10 mg PO DAILY [facility] Last Admin: 10/30/22 08:22 Dose: 10 mg Polyethylene Glycol (Polyethylene Glycol 3350 17 Gm Powd.Pack) 17 gm PO DAILY@1600 [facility] Last Admin: 10/30/22 17:03 Dose: 17 gm Pramipexole Dihydrochloride (Pramipexole Di-Hcl 0.25 Mg Tablet) 0.25 mg PO TID [facility] Last Admin: 10/30/22 14:38 Dose: 0.25 mg Psyllium Hydrophilic Mucilloid (Psyllium Seed 3.4 Gm Powd.Pack) 3.4 gm PO DAILY [facility] Last Admin: 10/30/22 08:21 Dose: 3.4 gm Quetiapine Fumarate (Quetiapine Fumarate 25 Mg Tablet) 25 mg PO Q4H PRN PRN Reason: Anxiety Last Admin: 10/27/22 13:03 Dose: 25 mg Quetiapine Fumarate (Quetiapine Fumarate 50 Mg Tablet) 50 mg PO BID@0900,1700 [facility] Last Admin: 10/30/22 17:05 Dose: Not Given Quetiapine Fumarate (Quetiapine Fumarate 50 Mg Tablet) 150 mg PO BEDTIME [facility] Last Admin: 10/29/22 20:33 Dose: 150 mg Tamsulosin HCl (Tamsulosin Hcl 0.4 Mg Capsule) 0.4 mg PO DAILY [facility] Last Admin: 10/30/22 08:24 Dose: 0.4 mg Trazodone HCl (Trazodone Hcl 100 Mg Tablet) 200 mg PO BEDTIME [facility] Last Admin: 10/29/22 20:31 Dose: 200 mg Trazodone HCl (Trazodone Hcl 50 Mg Tablet) 50 mg PO BEDTIME PRN PRN Reason: Insomnia Last Admin: 10/30/22 00:08 Dose: 50 mg Vitamin D (Cholecalciferol (Vitamin D3) 10 Mcg Tablet) 10 mcg PO DAILY [facility] Last Admin: 10/30/22 08:22 Dose: 10 mcg Allergies Allergies Allergy/AdvReac Type Severity Reaction Status Date / Time fentanyl [FENTANYL] Allergy Intermediate unknown Verified 04/08/22 07:00 Assessment & Plan Assessment & Plan (1) Dermatitis, unspecified: Status: Acute Code(s): L30.9 - Dermatitis, unspecified Plan The patient is a 67-year-old male, , on his psi after TBI with a long history of depression with suicidal ideation with several prior admissions into this facility with a similar presentation. 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 The patient has a long history of alcohol use disorder that he was not able to process or work on it. Plan 1. Continue with the same treatment. 2. We will work with the director social and DDS for a proper discharge planning. 3. Continue with recommendations of Wound Care. 4. Increase Seroquel up to 150 mg po qhs. 10/30/22 restart lorazepam 1 hs prn insomnia norterip inc 100 hs level in 50 s monitor ekg I spent minutes with the patient and/or on the patient floor today, greater than?50% of which was spent counseling/coordinating care. Reason for contiued inpatient stay Substantial Risk for: harm to self, rapid decompensation and med/psych decompensation Time Spent With Patient Time: Total time managing care of this patient today ____ minutes.
[2022-10-30] MEDS: Latanoprost 0.005 % Ophth Sol 2.5 ML DROPS 1 DROP EYE-BOTH (22:11)
[2022-10-30] MEDS: QUEtiapine Fumarate 25 MG TABLET PO (22:13)
[2022-10-31] MEDS: hydrOXYzine HCL 25 MG TABLET PO (00:30)
[2022-10-31] MEDS: LORazepam 1 MG TABLET PO ×2 (00:30→21:40)
[2022-10-31] MEDS: Omeprazole 20 MG CAPSULE.DR PO ×2 (06:32→16:55)
[2022-10-31] MEDS: Acetaminophen 325 MG TABLET 650 MG PO (06:32)
[2022-10-31 07:30] VITALS: BP 141/70; PULSE 98; RESP 19; TEMP 37; O2SAT 96
[2022-10-31] MEDS: Escitalopram Oxalate 10 MG TABLET PO (10:11)
[2022-10-31] MEDS: QUEtiapine Fumarate 50 MG TABLET PO ×2 (10:12→16:55)
[2022-10-31] MEDS: lamoTRIgine 100 MG TABLET 200 MG PO ×2 (10:12→21:30)
[2022-10-31] MEDS: Naltrexone HCl 50 MG TABLET PO (10:12)
[2022-10-31] MEDS: Gabapentin 300 MG CAPSULE 600 MG PO ×3 (10:12→21:30)
[2022-10-31] MEDS: lisinopriL 20 MG TABLET PO (10:12)
[2022-10-31] MEDS: calcium polycarbophiL TABLET 1 TAB PO (10:12)
[2022-10-31] MEDS: Tamsulosin HCL 0.4 MG CAPSULE PO (10:13)
[2022-10-31] MEDS: Pramipexole Di-HCL 0.25 MG TABLET PO ×3 (10:13→21:30)
[2022-10-31] MEDS: Multivitamin TABLET 1 TAB PO (10:13)
[2022-10-31] MEDS: amLODIPine Besylate 5 MG TABLET PO (10:13)
[2022-10-31] MEDS: Finasteride 5 MG TABLET PO (10:13)
[2022-10-31] MEDS: Cholecalciferol (Vitamin D3) 10 MCG TABLET PO (10:14)
[2022-10-31] MEDS: polyethylene glycoL 3350 17 GM POWD.PACK PO (16:55)
--- NOTE | 2022-10-31 17:32 | P.PNPSI_ITS ---
Subjective Subjective Date of Service: 10/31/22 Reason For Visit: Depression aggression Interim History: Discussed with team. Pt made no SI statements today, doing well in OT. Spoke with pt, says my anxiety is a 10, appreciates the increase in ativan though and says it has helped with sleep. Says the depression is right on the heels of the anxiety and that he could remember happier and healthier times. He is somewhat more hopeful, likes OT and says I havent completely given up on myself. He endorses passive SI with T/W but says he feels safe on the unit. Mental Status Exam Mental Status Exam Narrative: Patient Appearance: Well Grooomed Patient Orientation: Person and Situation Level of Consciousness: Awake and Appropriate Patient Behavior: Guarded and Passive Mood Description: Withdrawn and Depressed Affect Description: Constricted Patient Cognition Impaired: Yes Ability to Follow Directions: Good Speech Pattern: Clear Hallucinations: None Delusions: Not Present Thought Process: Intact and Rumination Thought Content: positive for Circumstantial Depressive Symptoms: Increased Anxiety, Increased Irritability and Difficulty Concentrating Judgement: Fair Diagnostics Vital Signs (24Hr): Vital Signs - 24 hr 10/30/22 21:00 10/31/22 07:30 Temperature 97.9 F 98.6 F Pulse Rate 69 98 Respiratory Rate 16 19 Blood Pressure 129/67 141/70 H Pulse Oximetry 98 96 Oxygen Delivery Method Room Air Room Air BMI result Body Mass Index 31.7 Labs Results: 10/20/22 14:26 10/03/22 19:19 Labs: Laboratory Results - last 48 hr 10/26/22 07:45 Nortriptyline 54 Imaging Radiology Impressions: ITS Impressions Chest X-Ray 10/20/22 15:45 IMPRESSION: 1. Low lung volumes with bibasilar linear disc atelectasis versus scarring. 2. No airspace consolidation or effusion. Medications Medications Current Medications Acetaminophen (Acetaminophen 325 Mg Tablet) 650 mg PO Q6H PRN PRN Reason: Headache/Pain Mild Scale (1-3) Last Admin: 10/31/22 06:32 Dose: 650 mg Al Hydroxide/Mg Hydroxide (Magnesium Hydrox/Alum Hydrox 30 Ml Oral.Susp) 30 ml PO Q6H PRN PRN Reason: Heartburn/Nausea Last Admin: 10/19/22 18:47 Dose: 30 ml Albuterol Sulfate (Albuterol Sulfate 90 Mcg 8 Gm Inhaler) 2 puff INHALE Q6H PRN PRN Reason: Wheezing Amlodipine Besylate (Amlodipine Besylate 5 Mg Tablet) 5 mg PO DAILY [facility]; Protocol Last Admin: 10/31/22 10:13 Dose: 5 mg Benzocaine (Throat Lozenge, Medicated Lozenge) 1 lozenge MUCOUS MEM Q2H PRN PRN Reason: Sore Throat Last Admin: 10/06/22 18:51 Dose: 1 lozenge Calcium Polycarbophil (Calcium Polycarbophil Tablet) 1 tab PO DAILY [facility] Last Admin: 10/31/22 10:12 Dose: 1 tab Docusate Sodium (Docusate Sodium 100 Mg Capsule) 100 mg PO DAILY PRN PRN Reason: constipation Last Admin: 10/30/22 22:09 Dose: 100 mg Escitalopram Oxalate (Escitalopram Oxalate 10 Mg Tablet) 10 mg PO DAILY [facility] Last Admin: 10/31/22 10:11 Dose: 10 mg Finasteride (Finasteride 5 Mg Tablet) 5 mg PO DAILY [facility] Last Admin: 10/31/22 10:13 Dose: 5 mg Gabapentin (Gabapentin 300 Mg Capsule) 600 mg PO TID [facility] Last Admin: 10/31/22 15:28 Dose: 600 mg Hydroxyzine HCl (Hydroxyzine Hcl 25 Mg Tablet) 25 mg PO Q6H PRN PRN Reason: Anxiety Last Admin: 10/31/22 00:30 Dose: 25 mg Lamotrigine (Lamotrigine 100 Mg Tablet) 200 mg PO BID [facility] Last Admin: 10/31/22 10:12 Dose: 200 mg Latanoprost (Latanoprost 0.005 % Ophth No 2.5 Ml Drops) 1 drop EYE-BOTH BEDTIME [facility] Last Admin: 10/30/22 22:11 Dose: 1 drop Lidocaine (Lidocaine 5 % Ointment 35 Gm) 1 appl TOPICAL QID [facility] Last Admin: 10/31/22 17:25 Dose: Not Given Lisinopril (Lisinopril 20 Mg Tablet) 20 mg PO DAILY [facility]; Protocol Last Admin: 10/31/22 10:12 Dose: 20 mg Lorazepam (Lorazepam 1 Mg Tablet) 1 mg PO BEDTIME PRN PRN Reason: Anxiety Last Admin: 10/31/22 00:30 Dose: 1 mg Magnesium Hydroxide (Milk Of Magnesia 30 Ml Oral.Susp) 30 ml PO DAILY PRN PRN Reason: Constipation Last Admin: 10/21/22 22:46 Dose: 30 ml Melatonin (Melatonin 3 Mg Tablet) 9 mg PO BEDTIME [facility] Last Admin: 10/30/22 22:06 Dose: 9 mg Multi-Ingred Cream/Lotion/Oil/Oint (Mineral Oil/Petrolatum,White 106 Gm Tube) 1 appl TOPICAL BID [facility]; Protocol Last Admin: 10/31/22 10:17 Dose: Not Given Multivitamins/Vitamin C (Multivitamin Tablet) 1 tab PO DAILY [facility] Last Admin: 10/31/22 10:13 Dose: 1 tab Naltrexone HCl (Naltrexone Hcl 50 Mg Tablet) 50 mg PO DAILY [facility] Last Admin: 10/31/22 10:12 Dose: 50 mg Nortriptyline HCl (Nortriptyline Hcl 25 Mg Capsule) 100 mg PO BEDTIME [facility] Nystatin (Nystatin Powder 15 Gm Bottle) 1 appl TOPICAL BID [facility] Last Admin: 10/31/22 10:17 Dose: Not Given Omeprazole (Omeprazole 20 Mg Capsule.Dr) 20 mg PO BID@0630,1630 [facility] Last Admin: 10/31/22 16:55 Dose: 20 mg Oxybutynin Chloride (Oxybutynin Chloride Er 5 Mg Tab.Er.24) 10 mg PO DAILY [facility] Last Admin: 10/31/22 10:13 Dose: 10 mg Polyethylene Glycol (Polyethylene Glycol 3350 17 Gm Powd.Pack) 17 gm PO DAILY@1600 [facility] Last Admin: 10/31/22 16:55 Dose: 17 gm Pramipexole Dihydrochloride (Pramipexole Di-Hcl 0.25 Mg Tablet) 0.25 mg PO TID [facility] Last Admin: 10/31/22 15:28 Dose: 0.25 mg Psyllium Hydrophilic Mucilloid (Psyllium Seed 3.4 Gm Powd.Pack) 3.4 gm PO DAILY [facility] Last Admin: 10/31/22 10:10 Dose: 3.4 gm Quetiapine Fumarate (Quetiapine Fumarate 25 Mg Tablet) 25 mg PO Q4H PRN PRN Reason: Anxiety Last Admin: 10/30/22 22:13 Dose: 25 mg Quetiapine Fumarate (Quetiapine Fumarate 50 Mg Tablet) 50 mg PO BID@0900,1700 [facility] Last Admin: 10/31/22 16:55 Dose: 50 mg Quetiapine Fumarate (Quetiapine Fumarate 50 Mg Tablet) 150 mg PO BEDTIME [facility] Last Admin: 10/30/22 22:07 Dose: 150 mg Tamsulosin HCl (Tamsulosin Hcl 0.4 Mg Capsule) 0.4 mg PO DAILY [facility] Last Admin: 10/31/22 10:13 Dose: 0.4 mg Trazodone HCl (Trazodone Hcl 100 Mg Tablet) 200 mg PO BEDTIME [facility] Last Admin: 10/30/22 22:09 Dose: 200 mg Trazodone HCl (Trazodone Hcl 50 Mg Tablet) 50 mg PO BEDTIME PRN PRN Reason: Insomnia Last Admin: 10/30/22 22:09 Dose: 50 mg Vitamin D (Cholecalciferol (Vitamin D3) 10 Mcg Tablet) 10 mcg PO DAILY [facility] Last Admin: 10/31/22 10:14 Dose: 10 mcg Allergies Allergies Allergy/AdvReac Type Severity Reaction Status Date / Time fentanyl [FENTANYL] Allergy Intermediate unknown Verified 04/08/22 07:00 Assessment & Plan Assessment & Plan (1) Dermatitis, unspecified: Status: Acute Code(s): L30.9 - Dermatitis, unspecified Plan The patient is a 67-year-old male, , on his psi after TBI with a long history of depression with suicidal ideation with several prior admissions into this facility with a similar presentation. 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 The patient has a long history of alcohol use disorder that he was not able to process or work on it. Plan 1. Continue with the same treatment. 2. We will work with the social media community manager and DDS for a proper discharge planning. 3. Continue with recommendations of Wound Care. 4. Increase Seroquel up to 150 mg po qhs. 10/30/22 restart lorazepam 1 hs prn insomnia norterip inc 100 hs level in 50 s monitor ekg I spent minutes with the patient and/or on the patient floor today, greater than?50% of which was spent counseling/coordinating care. Patient educated on: medication risk/benefits and therapeutic strategies Reason for contiued inpatient stay Substantial Risk for: harm to self, rapid decompensation and med/psych decompensation Time Spent With Patient Time: Total time managing care of this patient today ____ minutes.
[2022-10-31 18:00] VITALS: BP 116/62; PULSE 77; RESP 22; TEMP 36.8; O2SAT 96
[2022-10-31] MEDS: QUEtiapine Fumarate 50 MG TABLET 150 MG PO (21:29)
[2022-10-31] MEDS: Nortriptyline HCl 25 MG CAPSULE 100 MG PO (21:29)
[2022-10-31] MEDS: Melatonin 3 MG TABLET 9 MG PO (21:30)
[2022-10-31] MEDS: traZODone HCL 100 MG TABLET 200 MG PO (21:30)
[2022-10-31] MEDS: Latanoprost 0.005 % Ophth Sol 2.5 ML DROPS 1 DROP EYE-BOTH (21:31)
[2022-10-31] MEDS: Nystatin Powder 15 GM BOTTLE 1 APPL TOPICAL (21:31)
[2022-11-01 06:00] VITALS: BP 137/81; PULSE 93; RESP 18; TEMP 36.1; O2SAT 96
[2022-11-01] MEDS: Omeprazole 20 MG CAPSULE.DR PO ×2 (06:00→14:40)
[2022-11-01] MEDS: Finasteride 5 MG TABLET PO (09:11)
[2022-11-01] MEDS: Gabapentin 300 MG CAPSULE 600 MG PO ×3 (09:11→20:25)
[2022-11-01] MEDS: calcium polycarbophiL TABLET 1 TAB PO (09:13)
[2022-11-01] MEDS: lamoTRIgine 100 MG TABLET 200 MG PO ×2 (09:13→20:25)
[2022-11-01] MEDS: Naltrexone HCl 50 MG TABLET PO (09:13)
[2022-11-01] MEDS: Escitalopram Oxalate 10 MG TABLET PO (09:13)
[2022-11-01] MEDS: lisinopriL 20 MG TABLET PO (09:14)
[2022-11-01] MEDS: Tamsulosin HCL 0.4 MG CAPSULE PO (09:14)
[2022-11-01] MEDS: amLODIPine Besylate 5 MG TABLET PO (09:14)
[2022-11-01] MEDS: Multivitamin TABLET 1 TAB PO (09:14)
[2022-11-01] MEDS: Cholecalciferol (Vitamin D3) 10 MCG TABLET PO (09:14)
[2022-11-01] MEDS: Pramipexole Di-HCL 0.25 MG TABLET PO ×3 (09:14→20:26)
[2022-11-01] MEDS: QUEtiapine Fumarate 50 MG TABLET PO ×2 (09:14→16:25)
[2022-11-01] MEDS: Lidocaine 5 % Ointment 35 GM 1 APPL TOPICAL ×3 (09:21→16:34)
[2022-11-01] MEDS: Nystatin Powder 15 GM BOTTLE 1 APPL TOPICAL (09:22)
[2022-11-01] MEDS: Mineral Oil/Petrolatum,White 106 GM Tube 1 APPL TOPICAL (09:22)
[2022-11-01] MEDS: QUEtiapine Fumarate 25 MG TABLET PO (14:40)
[2022-11-01] MEDS: polyethylene glycoL 3350 17 GM POWD.PACK PO (14:41)
[2022-11-01 18:00] VITALS: BP 107/63; PULSE 70; RESP 18; TEMP 36.6; O2SAT 95
--- NOTE | 2022-11-01 18:49 | P.PNPSI_ITS ---
Subjective Subjective Date of Service: 11/01/22 Reason For Visit: Depression aggression Interim History: pt reports i'm fine... regarding SI he hesitates and then says it's still there...he then says but... does not finish sentence and typewriter repairer asks if it's lessening to which pt replies you can write that down if you wish. Mental Status Exam Mental Status Exam Narrative: Patient Appearance: adequately Groomed Patient Orientation: Person and Situation Level of Consciousness: Awake and Appropriate Patient Behavior: Guarded and Passive Mood Description: Withdrawn and Depressed Affect Description: Constricted Patient Cognition Impaired: Yes Ability to Follow Directions: Good Speech Pattern: Clear Hallucinations: None Delusions: Not Present Thought Process: Intact and Rumination Thought Content: some SI; Depressive Symptoms: Increased Anxiety, Increased Irritability and Difficulty Concentrating Judgement: Fair Diagnostics Vital Signs (24Hr): Vital Signs - 24 hr 11/01/22 06:00 11/01/22 18:00 Temperature 97 F 97.8 F Pulse Rate 93 70 Respiratory Rate 18 18 Blood Pressure 137/81 107/63 Pulse Oximetry 96 95 Oxygen Delivery Method Room Air BMI result Body Mass Index 31.7 Labs Results: 10/20/22 14:26 10/03/22 19:19 Imaging Radiology Impressions: ITS Impressions Chest X-Ray 10/20/22 15:45 IMPRESSION: 1. Low lung volumes with bibasilar linear disc atelectasis versus scarring. 2. No airspace consolidation or effusion. Medications Medications Current Medications Acetaminophen (Acetaminophen 325 Mg Tablet) 650 mg PO Q6H PRN PRN Reason: Headache/Pain Mild Scale (1-3) Last Admin: 10/31/22 06:32 Dose: 650 mg Al Hydroxide/Mg Hydroxide (Magnesium Hydrox/Alum Hydrox 30 Ml Oral.Susp) 30 ml PO Q6H PRN PRN Reason: Heartburn/Nausea Last Admin: 10/19/22 18:47 Dose: 30 ml Albuterol Sulfate (Albuterol Sulfate 90 Mcg 8 Gm Inhaler) 2 puff INHALE Q6H PRN PRN Reason: Wheezing Amlodipine Besylate (Amlodipine Besylate 5 Mg Tablet) 5 mg PO DAILY [facility]; Protocol Last Admin: 11/01/22 09:14 Dose: 5 mg Benzocaine (Throat Lozenge, Medicated Lozenge) 1 lozenge MUCOUS MEM Q2H PRN PRN Reason: Sore Throat Last Admin: 10/06/22 18:51 Dose: 1 lozenge Calcium Polycarbophil (Calcium Polycarbophil Tablet) 1 tab PO DAILY [facility] Last Admin: 11/01/22 09:13 Dose: 1 tab Docusate Sodium (Docusate Sodium 100 Mg Capsule) 100 mg PO DAILY PRN PRN Reason: constipation Last Admin: 10/30/22 22:09 Dose: 100 mg Escitalopram Oxalate (Escitalopram Oxalate 10 Mg Tablet) 10 mg PO DAILY [facility] Last Admin: 11/01/22 09:13 Dose: 10 mg Finasteride (Finasteride 5 Mg Tablet) 5 mg PO DAILY [facility] Last Admin: 11/01/22 09:11 Dose: 5 mg Gabapentin (Gabapentin 300 Mg Capsule) 600 mg PO TID [facility] Last Admin: 11/01/22 14:40 Dose: 600 mg Hydroxyzine HCl (Hydroxyzine Hcl 25 Mg Tablet) 25 mg PO Q6H PRN PRN Reason: Anxiety Last Admin: 10/31/22 00:30 Dose: 25 mg Lamotrigine (Lamotrigine 100 Mg Tablet) 200 mg PO BID [facility] Last Admin: 11/01/22 09:13 Dose: 200 mg Latanoprost (Latanoprost 0.005 % Ophth No 2.5 Ml Drops) 1 drop EYE-BOTH BEDTIME [facility] Last Admin: 10/31/22 21:31 Dose: 1 drop Lidocaine (Lidocaine 5 % Ointment 35 Gm) 1 appl TOPICAL QID [facility] Last Admin: 11/01/22 16:34 Dose: 1 appl Lisinopril (Lisinopril 20 Mg Tablet) 20 mg PO DAILY [facility]; Protocol Last Admin: 11/01/22 09:14 Dose: 20 mg Lorazepam (Lorazepam 1 Mg Tablet) 1 mg PO BEDTIME PRN PRN Reason: Anxiety Last Admin: 10/31/22 21:40 Dose: 1 mg Magnesium Hydroxide (Milk Of Magnesia 30 Ml Oral.Susp) 30 ml PO DAILY PRN PRN Reason: Constipation Last Admin: 10/21/22 22:46 Dose: 30 ml Melatonin (Melatonin 3 Mg Tablet) 9 mg PO BEDTIME [facility] Last Admin: 10/31/22 21:30 Dose: 9 mg Multi-Ingred Cream/Lotion/Oil/Oint (Mineral Oil/Petrolatum,White 106 Gm Tube) 1 appl TOPICAL BID [facility]; Protocol Last Admin: 11/01/22 09:22 Dose: 1 appl Multivitamins/Vitamin C (Multivitamin Tablet) 1 tab PO DAILY [facility] Last Admin: 11/01/22 09:14 Dose: 1 tab Naltrexone HCl (Naltrexone Hcl 50 Mg Tablet) 50 mg PO DAILY [facility] Last Admin: 11/01/22 09:13 Dose: 50 mg Nortriptyline HCl (Nortriptyline Hcl 25 Mg Capsule) 100 mg PO BEDTIME [facility] Last Admin: 10/31/22 21:29 Dose: 100 mg Nystatin (Nystatin Powder 15 Gm Bottle) 1 appl TOPICAL BID [facility] Last Admin: 11/01/22 09:22 Dose: 1 appl Omeprazole (Omeprazole 20 Mg Capsule.Dr) 20 mg PO BID@0630,1630 [facility] Last Admin: 11/01/22 14:40 Dose: 20 mg Oxybutynin Chloride (Oxybutynin Chloride Er 5 Mg Tab.Er.24) 10 mg PO DAILY [facility] Last Admin: 11/01/22 09:12 Dose: 10 mg Polyethylene Glycol (Polyethylene Glycol 3350 17 Gm Powd.Pack) 17 gm PO DAILY@1600 [facility] Last Admin: 11/01/22 14:41 Dose: 17 gm Pramipexole Dihydrochloride (Pramipexole Di-Hcl 0.25 Mg Tablet) 0.25 mg PO TID [facility] Last Admin: 11/01/22 14:40 Dose: 0.25 mg Psyllium Hydrophilic Mucilloid (Psyllium Seed 3.4 Gm Powd.Pack) 3.4 gm PO DAILY [facility] Last Admin: 11/01/22 09:12 Dose: 3.4 gm Quetiapine Fumarate (Quetiapine Fumarate 25 Mg Tablet) 25 mg PO Q4H PRN PRN Reason: Anxiety Last Admin: 11/01/22 14:40 Dose: 25 mg Quetiapine Fumarate (Quetiapine Fumarate 50 Mg Tablet) 50 mg PO BID@0900,1700 [facility] Last Admin: 11/01/22 16:25 Dose: 50 mg Quetiapine Fumarate (Quetiapine Fumarate 50 Mg Tablet) 150 mg PO BEDTIME [facility] Last Admin: 10/31/22 21:29 Dose: 150 mg Tamsulosin HCl (Tamsulosin Hcl 0.4 Mg Capsule) 0.4 mg PO DAILY [facility] Last Admin: 11/01/22 09:14 Dose: 0.4 mg Trazodone HCl (Trazodone Hcl 100 Mg Tablet) 200 mg PO BEDTIME [facility] Last Admin: 10/31/22 21:30 Dose: 200 mg Trazodone HCl (Trazodone Hcl 50 Mg Tablet) 50 mg PO BEDTIME PRN PRN Reason: Insomnia Last Admin: 10/30/22 22:09 Dose: 50 mg Vitamin D (Cholecalciferol (Vitamin D3) 10 Mcg Tablet) 10 mcg PO DAILY [facility] Last Admin: 11/01/22 09:14 Dose: 10 mcg Allergies Allergies Allergy/AdvReac Type Severity Reaction Status Date / Time fentanyl [FENTANYL] Allergy Intermediate unknown Verified 04/08/22 07:00 Assessment & Plan Assessment & Plan (1) Dermatitis, unspecified: Status: Acute Code(s): L30.9 - Dermatitis, unspecified Plan The patient is a 67-year-old male, , on his psi after TBI with a long history of depression with suicidal ideation with several prior admissions into this facility with a similar presentation. At this moment also, he has problems of housing since he will not be able to go back to his regular residential. The patient has a long history of alcohol use disorder that he was not able to process or work on it. Plan 1. Continue with the same treatment. 2. We will work with the child welfare social worker and DDS for a proper discharge planning. 3. Continue with recommendations of Wound Care. 4. Increase Seroquel up to 150 mg po qhs. 10/30/22 restart lorazepam 1 hs prn insomnia norterip inc 100 hs level in 50 s monitor ekg 11/01 continue current tx plan I spent minutes with the patient and/or on the patient floor today, greater than?50% of which was spent counseling/coordinating care. Patient educated on: diagnosis Informed Consent: understands Reason for contiued inpatient stay Substantial Risk for: rapid decompensation Time Spent With Patient Time: Total time managing care of this patient today ____ minutes.
[2022-11-01] MEDS: QUEtiapine Fumarate 50 MG TABLET 150 MG PO (20:25)
[2022-11-01] MEDS: Melatonin 3 MG TABLET 9 MG PO (20:25)
[2022-11-01] MEDS: Nortriptyline HCl 25 MG CAPSULE 100 MG PO (20:26)
[2022-11-01] MEDS: traZODone HCL 100 MG TABLET 200 MG PO (20:26)
[2022-11-01] MEDS: LORazepam 1 MG TABLET PO (20:26)
[2022-11-01] MEDS: Latanoprost 0.005 % Ophth Sol 2.5 ML DROPS 1 DROP EYE-BOTH (20:27)
--- NOTE | 2022-11-02 05:06 | PC.NURSE ---
At 0200 patient was eating mariana crackers while lying down and was choking. Patient placed in full upright position in bed and was able to clear cracker out of throat. Patient informed he is not to eat while laying flat in bed and needs to be upright while eating. Patient understood and agreed.
[2022-11-02 06:00] VITALS: BP 150/71; PULSE 104; RESP 18; TEMP 36.1; O2SAT 95
[2022-11-02] MEDS: Omeprazole 20 MG CAPSULE.DR PO ×2 (06:40→15:26)
[2022-11-02] MEDS: Finasteride 5 MG TABLET PO (08:55)
[2022-11-02] MEDS: Escitalopram Oxalate 10 MG TABLET PO (08:55)
[2022-11-02] MEDS: lamoTRIgine 100 MG TABLET 200 MG PO ×2 (08:56→20:17)
[2022-11-02] MEDS: calcium polycarbophiL TABLET 1 TAB PO (08:57)
[2022-11-02] MEDS: Pramipexole Di-HCL 0.25 MG TABLET PO ×3 (08:57→20:16)
[2022-11-02] MEDS: lisinopriL 20 MG TABLET PO (08:57)
[2022-11-02] MEDS: Naltrexone HCl 50 MG TABLET PO (08:57)
[2022-11-02] MEDS: QUEtiapine Fumarate 50 MG TABLET PO ×2 (08:57→15:26)
[2022-11-02] MEDS: Gabapentin 300 MG CAPSULE 600 MG PO ×3 (08:58→20:14)
[2022-11-02] MEDS: Multivitamin TABLET 1 TAB PO (08:58)
[2022-11-02] MEDS: amLODIPine Besylate 5 MG TABLET PO (08:58)
[2022-11-02] MEDS: Cholecalciferol (Vitamin D3) 10 MCG TABLET PO (08:58)
[2022-11-02] MEDS: Tamsulosin HCL 0.4 MG CAPSULE PO (08:58)
[2022-11-02] MEDS: Lidocaine 5 % Ointment 35 GM 1 APPL TOPICAL ×4 (09:04→20:24)
[2022-11-02] MEDS: Nystatin Powder 15 GM BOTTLE 1 APPL TOPICAL ×2 (09:05→20:24)
[2022-11-02] MEDS: Mineral Oil/Petrolatum,White 106 GM Tube 1 APPL TOPICAL ×2 (09:05→20:24)
[2022-11-02] MEDS: Acetaminophen 325 MG TABLET 650 MG PO (13:47)
[2022-11-02] MEDS: polyethylene glycoL 3350 17 GM POWD.PACK PO (15:25)
--- NOTE | 2022-11-02 15:31 | P.PNPSI_ITS ---
Subjective Subjective Date of Service: 11/02/22 Reason For Visit: Depression aggression Interim History: Reports anxiety 08/25, depression 07/26. Like a black hole I cannot see out of. Discussed choking episode which occurrent 11/01. Discussed increase risk when eating/taking meds when lying down, discusses swallow eval which he agrees to. Medication Compliance: Yes Side effects from medications: No Attending Groups: No Review of Systems Acute medical concerns: No Medical Review of Systems: unchanged Mental Status Exam Mental Status Exam Patient Appearance: Appropriate Patient Orientation: Person, Place and Situation Level of Consciousness: Alert Patient Behavior: Cooperative Mood Description: Constricted Affect Description: Constricted Patient Cognition Impaired: Yes Ability to Follow Directions: Fair Speech Pattern: Spontaneous Speech Memory Description: Remote Impaired and Episodic Impaired Hallucinations: None Delusions: Not Present Thought Process: Distracted and Goal Oriented Thought Content: positive for [place], positive for Circumstantial and positive for Suicidal Ideation (denies) Depressive Symptoms: Thoughts of /Suicide (denies) Judgement: Poor Diagnostics Vital Signs (24Hr): Vital Signs - 24 hr 11/01/22 18:00 11/02/22 06:00 Temperature 97.8 F 97 F Pulse Rate 70 104 H Respiratory Rate 18 18 Blood Pressure 107/63 150/71 H Pulse Oximetry 95 95 Oxygen Delivery Method Room Air BMI result Body Mass Index 31.7 Labs Results: 10/20/22 14:26 10/03/22 19:19 Imaging Radiology Impressions: ITS Impressions Chest X-Ray 10/20/22 15:45 IMPRESSION: 1. Low lung volumes with bibasilar linear disc atelectasis versus scarring. 2. No airspace consolidation or effusion. Medications Medications Current Medications Acetaminophen (Acetaminophen 325 Mg Tablet) 650 mg PO Q6H PRN PRN Reason: Headache/Pain Mild Scale (1-3) Last Admin: 11/02/22 13:47 Dose: 650 mg Al Hydroxide/Mg Hydroxide (Magnesium Hydrox/Alum Hydrox 30 Ml Oral.Susp) 30 ml PO Q6H PRN PRN Reason: Heartburn/Nausea Last Admin: 10/19/22 18:47 Dose: 30 ml Albuterol Sulfate (Albuterol Sulfate 90 Mcg 8 Gm Inhaler) 2 puff INHALE Q6H PRN PRN Reason: Wheezing Amlodipine Besylate (Amlodipine Besylate 5 Mg Tablet) 5 mg PO DAILY [facility]; Protocol Last Admin: 11/02/22 08:58 Dose: 5 mg Benzocaine (Throat Lozenge, Medicated Lozenge) 1 lozenge MUCOUS MEM Q2H PRN PRN Reason: Sore Throat Last Admin: 10/06/22 18:51 Dose: 1 lozenge Calcium Polycarbophil (Calcium Polycarbophil Tablet) 1 tab PO DAILY [facility] Last Admin: 11/02/22 08:57 Dose: 1 tab Docusate Sodium (Docusate Sodium 100 Mg Capsule) 100 mg PO DAILY PRN PRN Reason: constipation Last Admin: 10/30/22 22:09 Dose: 100 mg Escitalopram Oxalate (Escitalopram Oxalate 10 Mg Tablet) 10 mg PO DAILY [facility] Last Admin: 11/02/22 08:55 Dose: 10 mg Finasteride (Finasteride 5 Mg Tablet) 5 mg PO DAILY [facility] Last Admin: 11/02/22 08:55 Dose: 5 mg Gabapentin (Gabapentin 300 Mg Capsule) 600 mg PO TID [facility] Last Admin: 11/02/22 15:26 Dose: 600 mg Hydroxyzine HCl (Hydroxyzine Hcl 25 Mg Tablet) 25 mg PO Q6H PRN PRN Reason: Anxiety Last Admin: 10/31/22 00:30 Dose: 25 mg Lamotrigine (Lamotrigine 100 Mg Tablet) 200 mg PO BID [facility] Last Admin: 11/02/22 08:56 Dose: 200 mg Latanoprost (Latanoprost 0.005 % Ophth No 2.5 Ml Drops) 1 drop EYE-BOTH BEDTIME [facility] Last Admin: 11/01/22 20:27 Dose: 1 drop Lidocaine (Lidocaine 5 % Ointment 35 Gm) 1 appl TOPICAL QID [facility] Last Admin: 11/02/22 13:18 Dose: 1 appl Lisinopril (Lisinopril 20 Mg Tablet) 20 mg PO DAILY [facility]; Protocol Last Admin: 11/02/22 08:57 Dose: 20 mg Lorazepam (Lorazepam 1 Mg Tablet) 1 mg PO BEDTIME PRN PRN Reason: Anxiety Last Admin: 11/01/22 20:26 Dose: 1 mg Magnesium Hydroxide (Milk Of Magnesia 30 Ml Oral.Susp) 30 ml PO DAILY PRN PRN Reason: Constipation Last Admin: 10/21/22 22:46 Dose: 30 ml Melatonin (Melatonin 3 Mg Tablet) 9 mg PO BEDTIME [facility] Last Admin: 11/01/22 20:25 Dose: 9 mg Multi-Ingred Cream/Lotion/Oil/Oint (Mineral Oil/Petrolatum,White 106 Gm Tube) 1 appl TOPICAL BID [facility]; Protocol Last Admin: 11/02/22 09:05 Dose: 1 appl Multivitamins/Vitamin C (Multivitamin Tablet) 1 tab PO DAILY [facility] Last Admin: 11/02/22 08:58 Dose: 1 tab Naltrexone HCl (Naltrexone Hcl 50 Mg Tablet) 50 mg PO DAILY [facility] Last Admin: 11/02/22 08:57 Dose: 50 mg Nortriptyline HCl (Nortriptyline Hcl 25 Mg Capsule) 100 mg PO BEDTIME [facility] Last Admin: 11/01/22 20:26 Dose: 100 mg Nystatin (Nystatin Powder 15 Gm Bottle) 1 appl TOPICAL BID [facility] Last Admin: 11/02/22 09:05 Dose: 1 appl Omeprazole (Omeprazole 20 Mg Capsule.Dr) 20 mg PO BID@0630,1630 [facility] Last Admin: 11/02/22 15:26 Dose: 20 mg Oxybutynin Chloride (Oxybutynin Chloride Er 5 Mg Tab.Er.24) 10 mg PO DAILY [facility] Last Admin: 11/02/22 08:56 Dose: 10 mg Polyethylene Glycol (Polyethylene Glycol 3350 17 Gm Powd.Pack) 17 gm PO DAILY@1600 [facility] Last Admin: 11/02/22 15:25 Dose: 17 gm Pramipexole Dihydrochloride (Pramipexole Di-Hcl 0.25 Mg Tablet) 0.25 mg PO TID [facility] Last Admin: 11/02/22 15:26 Dose: 0.25 mg Psyllium Hydrophilic Mucilloid (Psyllium Seed 3.4 Gm Powd.Pack) 3.4 gm PO DAILY [facility] Last Admin: 11/02/22 08:58 Dose: 3.4 gm Quetiapine Fumarate (Quetiapine Fumarate 25 Mg Tablet) 25 mg PO Q4H PRN PRN Reason: Anxiety Last Admin: 11/01/22 14:40 Dose: 25 mg Quetiapine Fumarate (Quetiapine Fumarate 50 Mg Tablet) 50 mg PO BID@0900,1700 [facility] Last Admin: 11/02/22 15:26 Dose: 50 mg Quetiapine Fumarate (Quetiapine Fumarate 50 Mg Tablet) 150 mg PO BEDTIME [facility] Last Admin: 11/01/22 20:25 Dose: 150 mg Tamsulosin HCl (Tamsulosin Hcl 0.4 Mg Capsule) 0.4 mg PO DAILY [facility] Last Admin: 11/02/22 08:58 Dose: 0.4 mg Trazodone HCl (Trazodone Hcl 100 Mg Tablet) 200 mg PO BEDTIME [facility] Last Admin: 11/01/22 20:26 Dose: 200 mg Trazodone HCl (Trazodone Hcl 50 Mg Tablet) 50 mg PO BEDTIME PRN PRN Reason: Insomnia Last Admin: 10/30/22 22:09 Dose: 50 mg Vitamin D (Cholecalciferol (Vitamin D3) 10 Mcg Tablet) 10 mcg PO DAILY [facility] Last Admin: 11/02/22 08:58 Dose: 10 mcg Allergies Allergies Allergy/AdvReac Type Severity Reaction Status Date / Time fentanyl [FENTANYL] Allergy Intermediate unknown Verified 04/08/22 07:00 Assessment & Plan Assessment & Plan (1) Dermatitis, unspecified: Status: Acute Code(s): L30.9 - Dermatitis, unspecified Plan The patient is a 67-year-old male, , on his psi after TBI with a long history of depression with suicidal ideation with several prior admissions into this facility with a similar presentation. At this moment also, he has problems of housing since he will not be able to go back to his regular longterm. The patient has a long history of alcohol use disorder that he was not able to process or work on it. Plan 1. Continue with the same treatment. 2. We will work with the oncology social work and DDS for a proper discharge planning. 3. Continue with recommendations of Wound Care. 4. Increase Seroquel up to 150 mg po qhs. 10/30/22 restart lorazepam 1 hs prn insomnia norterip inc 100 hs level in 50 s monitor ekg 11/01 continue current tx plan 11/02/22- Bedside Swallow eval. s/p choking episode on 11/01. I spent minutes with the patient and/or on the patient floor today, greater than?50% of which was spent counseling/coordinating care. Patient educated on: therapeutic strategies and medical condition Informed Consent: further education needed Reason for contiued inpatient stay Substantial Risk for: harm to self and rapid decompensation Time Spent With Patient Time: Total time managing care of this patient today __25__ minutes.
[2022-11-02 18:00] VITALS: BP 136/68; PULSE 68; RESP 20; TEMP 36.7; O2SAT 94
[2022-11-02] MEDS: Nortriptyline HCl 25 MG CAPSULE 100 MG PO (20:11)
[2022-11-02] MEDS: Latanoprost 0.005 % Ophth Sol 2.5 ML DROPS 1 DROP EYE-BOTH (20:12)
[2022-11-02] MEDS: LORazepam 1 MG TABLET PO (20:14)
[2022-11-02] MEDS: QUEtiapine Fumarate 50 MG TABLET 150 MG PO (20:15)
[2022-11-02] MEDS: traZODone HCL 100 MG TABLET 200 MG PO (20:16)
[2022-11-02] MEDS: Melatonin 3 MG TABLET 9 MG PO (20:18)
[2022-11-03 06:00] VITALS: BP 140/78; PULSE 88; RESP 18; TEMP 37; O2SAT 96
[2022-11-03] MEDS: amLODIPine Besylate 5 MG TABLET PO (13:41)
[2022-11-03] MEDS: calcium polycarbophiL TABLET 1 TAB PO (13:41)
[2022-11-03] MEDS: Omeprazole 20 MG CAPSULE.DR PO ×2 (13:41→16:25)
[2022-11-03] MEDS: Cholecalciferol (Vitamin D3) 10 MCG TABLET PO (13:41)
[2022-11-03] MEDS: Escitalopram Oxalate 10 MG TABLET PO (13:41)
[2022-11-03] MEDS: Gabapentin 300 MG CAPSULE 600 MG PO ×3 (13:42→20:02)
[2022-11-03] MEDS: lamoTRIgine 100 MG TABLET 200 MG PO ×2 (13:42→20:02)
[2022-11-03] MEDS: Finasteride 5 MG TABLET PO (13:42)
[2022-11-03] MEDS: lisinopriL 20 MG TABLET PO (13:43)
[2022-11-03] MEDS: Mineral Oil/Petrolatum,White 106 GM Tube 1 APPL TOPICAL ×2 (13:43→20:04)
[2022-11-03] MEDS: Nystatin Powder 15 GM BOTTLE 1 APPL TOPICAL ×2 (13:43→20:04)
[2022-11-03] MEDS: Naltrexone HCl 50 MG TABLET PO (13:43)
[2022-11-03] MEDS: Multivitamin TABLET 1 TAB PO (13:43)
[2022-11-03] MEDS: Lidocaine 5 % Ointment 35 GM 1 APPL TOPICAL ×3 (13:43→20:04)
[2022-11-03] MEDS: Tamsulosin HCL 0.4 MG CAPSULE PO (13:44)
[2022-11-03] MEDS: QUEtiapine Fumarate 50 MG TABLET PO ×2 (13:44→16:40)
[2022-11-03] MEDS: Pramipexole Di-HCL 0.25 MG TABLET PO ×3 (13:44→20:02)
[2022-11-03] MEDS: polyethylene glycoL 3350 17 GM POWD.PACK PO (16:25)
--- NOTE | 2022-11-03 17:20 | MHC.SL.SWA ---
Speech Pathologist Impression: Oral phase dysphagia Risk of Aspiration Due to: Neurological Condition Reduced Cognition Dysphasia Diet Status: No Change Liquid Consistency and Strategies for Safe Swallow: Liquid Intake Recommendation: Thin Liquid Intake Strategies: Small Sips Solid Food Consistency: Dietary Recommendations: Regular Additional Modifications to Solid Foods: Recommend total 1:1 supervision during PO intake to monitor tolerance and provide cues as needed for aspiration precautions. BAD WORK GATHERER discussed safe eating behaviors with pt: Recommend taking small bites, chewing food well, and moistening foods with sauces and gravies. Recommend avoiding very dry foods, granulous or crumbly foods, and sticky textures. Recommend alternating bites of food with sips of liquid. BAD WORK GATHERER reiterated importance of sitting upright at 90 degrees whenever pt is eating or drinking, not eating or drinking when laying down or in reclined position. Pt mentioned that large pills are difficult for him to swallow. Recommend large pills to be crushed, small pills whole with PUREE. Oral Medication Intake: Crushed with Puree Please contact the pharmacy regarding appropriate crushable or liquid drug formulations that are available whenever modified delivery is recommended. Compensatory Strategies and Precautions to be Taken for Safe Swallow: Sitting Upright (90 deg) Double Swallow Small Bites and Sips Alternate Liquids/Solids Rate of Ingestion Change Oral Check Avoid Specific Foods Supervision While Eating and Drinking for Safe Swallow: Total Supervision (1:1) Foods to Avoid: Recommend avoiding very dry foods, granulous or crumbly foods, and sticky textures. Swallowing Recommended Treatments: Recommendation for Speech: Comment: Sent update to MD and RD via Sharon Message. Further ST intervention no longer warranted. Please re-refer with any changes or further concern. Glass Production Machine Operator Clinican/Clinical Fellow: No Supervisory Statement: I have reviewed and agree with the student/clinical fellow's documentation: N/A Speech Language Pathologist: Maddy Harris M.A., CCC-BAD WORK GATHERER
[2022-11-03 18:00] VITALS: BP 104/61; PULSE 80; RESP 18; TEMP 36.4; O2SAT 94
[2022-11-03 19:19] LABS: Influenza A PCR NEGATIVE (Negative); Influenza B PCR NEGATIVE (Negative); Resp Syncy Virus RNA Qual PCR NEGATIVE (Negative); SARS COV2 PCR INHOUSE NEGATIVE (Negative)
[2022-11-03] MEDS: Melatonin 3 MG TABLET 9 MG PO (20:01)
[2022-11-03] MEDS: traZODone HCL 100 MG TABLET 200 MG PO (20:02)
[2022-11-03] MEDS: LORazepam 1 MG TABLET PO (20:03)
[2022-11-03] MEDS: Nortriptyline HCl 25 MG CAPSULE 100 MG PO (20:03)
[2022-11-03] MEDS: QUEtiapine Fumarate 50 MG TABLET 150 MG PO (20:03)
[2022-11-03] MEDS: Latanoprost 0.005 % Ophth Sol 2.5 ML DROPS 1 DROP EYE-BOTH (20:04)
--- NOTE | 2022-11-03 23:13 | HO.PSYCHPN ---
Subjective Subjective Date of Service: 11/03/22 Reason For Visit: Depression aggression Subjective Notes: Conditional Voluntary Interim History: Patient depressed withdrawn irritable negativistic thinking Mental Status Exam Mental Status Exam Patient Appearance: Appropriate Patient Orientation: Person, Place and Situation Level of Consciousness: Alert Patient Behavior: Cooperative Mood Description: Constricted and Depressed Affect Description: Constricted, Angry and Apprehensive Patient Cognition Impaired: Yes Ability to Follow Directions: Fair Speech Pattern: Spontaneous Speech Memory Description: Remote Impaired and Episodic Impaired Hallucinations: None Delusions: Not Present Thought Process: Distracted and Goal Oriented Thought Content: positive for [place], positive for Circumstantial and positive for Suicidal Ideation (denies) Depressive Symptoms: Increased Anxiety, Loss of Int. in Activity and Thoughts of /Suicide (denies) Abnormal Motor Activity Signs and Symptoms: Psychomotor Retardation Judgement: Poor Diagnostics Vital Signs (24Hr): Vital Signs - 24 hr 11/03/22 06:00 11/03/22 18:00 Temperature 98.6 F 97.5 F Pulse Rate 88 80 Respiratory Rate 18 18 Blood Pressure 140/78 H 104/61 Pulse Oximetry 96 94 Oxygen Delivery Method Room Air BMI result Body Mass Index 31.7 Labs Results: 10/20/22 14:26 10/03/22 19:19 Labs: Laboratory Results - last 48 hr 11/03/22 18:05 Influenza Type A (PCR) NEGATIVE Influenza Type B (PCR) NEGATIVE RSV RNA Qual (PCR) NEGATIVE SARS-CoV-2 RNA (RT-PCR) NEGATIVE Imaging Radiology Impressions: ITS Impressions Chest X-Ray 10/20/22 15:45 IMPRESSION: 1. Low lung volumes with bibasilar linear disc atelectasis versus scarring. 2. No airspace consolidation or effusion. Medications Medications Current Medications Acetaminophen (Acetaminophen 325 Mg Tablet) 650 mg PO Q6H PRN PRN Reason: Headache/Pain Mild Scale (1-3) Last Admin: 11/02/22 13:47 Dose: 650 mg Al Hydroxide/Mg Hydroxide (Magnesium Hydrox/Alum Hydrox 30 Ml Oral.Susp) 30 ml PO Q6H PRN PRN Reason: Heartburn/Nausea Last Admin: 10/19/22 18:47 Dose: 30 ml Albuterol Sulfate (Albuterol Sulfate 90 Mcg 8 Gm Inhaler) 2 puff INHALE Q6H PRN PRN Reason: Wheezing Amlodipine Besylate (Amlodipine Besylate 5 Mg Tablet) 5 mg PO DAILY [facility]; Protocol Last Admin: 11/03/22 13:41 Dose: 5 mg Benzocaine (Throat Lozenge, Medicated Lozenge) 1 lozenge MUCOUS MEM Q2H PRN PRN Reason: Sore Throat Last Admin: 10/06/22 18:51 Dose: 1 lozenge Calcium Polycarbophil (Calcium Polycarbophil Tablet) 1 tab PO DAILY [facility] Last Admin: 11/03/22 13:41 Dose: 1 tab Docusate Sodium (Docusate Sodium 100 Mg Capsule) 100 mg PO DAILY PRN PRN Reason: constipation Last Admin: 10/30/22 22:09 Dose: 100 mg Escitalopram Oxalate (Escitalopram Oxalate 10 Mg Tablet) 10 mg PO DAILY [facility] Last Admin: 11/03/22 13:41 Dose: 10 mg Finasteride (Finasteride 5 Mg Tablet) 5 mg PO DAILY [facility] Last Admin: 11/03/22 13:42 Dose: 5 mg Gabapentin (Gabapentin 300 Mg Capsule) 600 mg PO TID [facility] Last Admin: 11/03/22 20:02 Dose: 600 mg Hydroxyzine HCl (Hydroxyzine Hcl 25 Mg Tablet) 25 mg PO Q6H PRN PRN Reason: Anxiety Last Admin: 10/31/22 00:30 Dose: 25 mg Lamotrigine (Lamotrigine 100 Mg Tablet) 200 mg PO BID [facility] Last Admin: 11/03/22 20:02 Dose: 200 mg Latanoprost (Latanoprost 0.005 % Ophth No 2.5 Ml Drops) 1 drop EYE-BOTH BEDTIME [facility] Last Admin: 11/03/22 20:04 Dose: 1 drop Lidocaine (Lidocaine 5 % Ointment 35 Gm) 1 appl TOPICAL QID [facility] Last Admin: 11/03/22 20:04 Dose: 1 appl Lisinopril (Lisinopril 20 Mg Tablet) 20 mg PO DAILY [facility]; Protocol Last Admin: 11/03/22 13:43 Dose: 20 mg Lorazepam (Lorazepam 1 Mg Tablet) 1 mg PO BEDTIME PRN PRN Reason: Anxiety Last Admin: 11/03/22 20:03 Dose: 1 mg Magnesium Hydroxide (Milk Of Magnesia 30 Ml Oral.Susp) 30 ml PO DAILY PRN PRN Reason: Constipation Last Admin: 10/21/22 22:46 Dose: 30 ml Melatonin (Melatonin 3 Mg Tablet) 9 mg PO BEDTIME [facility] Last Admin: 11/03/22 20:01 Dose: 9 mg Multi-Ingred Cream/Lotion/Oil/Oint (Mineral Oil/Petrolatum,White 106 Gm Tube) 1 appl TOPICAL BID [facility]; Protocol Last Admin: 11/03/22 20:04 Dose: 1 appl Multivitamins/Vitamin C (Multivitamin Tablet) 1 tab PO DAILY [facility] Last Admin: 11/03/22 13:43 Dose: 1 tab Naltrexone HCl (Naltrexone Hcl 50 Mg Tablet) 50 mg PO DAILY [facility] Last Admin: 11/03/22 13:43 Dose: 50 mg Nortriptyline HCl (Nortriptyline Hcl 25 Mg Capsule) 100 mg PO BEDTIME [facility] Last Admin: 11/03/22 20:03 Dose: 100 mg Nystatin (Nystatin Powder 15 Gm Bottle) 1 appl TOPICAL BID [facility] Last Admin: 11/03/22 20:04 Dose: 1 appl Omeprazole (Omeprazole 20 Mg Capsule.Dr) 20 mg PO BID@0630,1630 [facility] Last Admin: 11/03/22 16:25 Dose: 20 mg Oxybutynin Chloride (Oxybutynin Chloride Er 5 Mg Tab.Er.24) 10 mg PO DAILY [facility] Last Admin: 11/02/22 08:56 Dose: 10 mg Polyethylene Glycol (Polyethylene Glycol 3350 17 Gm Powd.Pack) 17 gm PO DAILY@1600 [facility] Last Admin: 11/03/22 16:25 Dose: 17 gm Pramipexole Dihydrochloride (Pramipexole Di-Hcl 0.25 Mg Tablet) 0.25 mg PO TID [facility] Last Admin: 11/03/22 20:02 Dose: 0.25 mg Psyllium Hydrophilic Mucilloid (Psyllium Seed 3.4 Gm Powd.Pack) 3.4 gm PO DAILY [facility] Last Admin: 11/03/22 13:44 Dose: 3.4 gm Quetiapine Fumarate (Quetiapine Fumarate 25 Mg Tablet) 25 mg PO Q4H PRN PRN Reason: Anxiety Last Admin: 11/01/22 14:40 Dose: 25 mg Quetiapine Fumarate (Quetiapine Fumarate 50 Mg Tablet) 50 mg PO BID@0900,1700 [facility] Last Admin: 11/03/22 16:40 Dose: 50 mg Quetiapine Fumarate (Quetiapine Fumarate 50 Mg Tablet) 150 mg PO BEDTIME [facility] Last Admin: 12/19/22 20:03 Dose: 150 mg Tamsulosin HCl (Tamsulosin Hcl 0.4 Mg Capsule) 0.4 mg PO DAILY [facility] Last Admin: 11/03/22 13:44 Dose: 0.4 mg Trazodone HCl (Trazodone Hcl 100 Mg Tablet) 200 mg PO BEDTIME [facility] Last Admin: 11/03/22 20:02 Dose: 200 mg Trazodone HCl (Trazodone Hcl 50 Mg Tablet) 50 mg PO BEDTIME PRN PRN Reason: Insomnia Last Admin: 10/30/22 22:09 Dose: 50 mg Vitamin D (Cholecalciferol (Vitamin D3) 10 Mcg Tablet) 10 mcg PO DAILY [facility] Last Admin: 11/03/22 13:41 Dose: 10 mcg Allergies Allergies Allergy/AdvReac Type Severity Reaction Status Date / Time fentanyl [FENTANYL] Allergy Intermediate unknown Verified 04/08/22 07:00 Assessment & Plan Assessment & Plan (1) Dermatitis, unspecified: Status: Acute Code(s): L30.9 - Dermatitis, unspecified Plan The patient is a 67-year-old male, , on his psi after TBI with a long history of depression with suicidal ideation with several prior admissions into this facility with a similar presentation. At this moment also, he has problems of housing since he will not be able to go back to his regular longterm. The patient has a long history of alcohol use disorder that he was not able to process or work on it. Plan 1. Continue with the same treatment. 2. We will work with the social science analyst and DDS for a proper discharge planning. 3. Continue with recommendations of Wound Care. 4. Increase Seroquel up to 150 mg po qhs. 10/30/22 restart lorazepam 1 hs prn insomnia norterip inc 100 hs level in 50 s monitor ekg 11/01 continue current tx plan 11/02/22- Bedside Swallow eval. s/p choking episode on 11/01. 11/03/2022 Patient depressed withdrawn hopeless helpless thoughts at times he be better off discuss cognitive behavioral approaches increase Lexapro I spent minutes with the patient and/or on the patient floor today, greater than?50% of which was spent counseling/coordinating care. Reason for contiued inpatient stay Substantial Risk for: harm to self, inability to function and med/psych decompensation Time Spent With Patient Time: Total time managing care of this patient today ____ minutes.
[2022-11-04] MEDS: traZODone HCL 50 MG TABLET PO (01:41)
[2022-11-04] MEDS: hydrOXYzine HCL 25 MG TABLET PO (01:41)
[2022-11-04 06:00] VITALS: BP 130/68; PULSE 82; RESP 16; TEMP 37; O2SAT 96
[2022-11-04] MEDS: Omeprazole 20 MG CAPSULE.DR PO ×2 (06:40→16:18)
[2022-11-04] MEDS: Finasteride 5 MG TABLET PO (10:10)
[2022-11-04] MEDS: lamoTRIgine 100 MG TABLET 200 MG PO ×2 (10:10→20:00)
[2022-11-04] MEDS: QUEtiapine Fumarate 50 MG TABLET PO ×2 (10:10→16:18)
[2022-11-04] MEDS: Tamsulosin HCL 0.4 MG CAPSULE PO (10:11)
[2022-11-04] MEDS: Gabapentin 300 MG CAPSULE 600 MG PO ×3 (10:11→20:40)
[2022-11-04] MEDS: amLODIPine Besylate 5 MG TABLET PO (10:11)
[2022-11-04] MEDS: Multivitamin TABLET 1 TAB PO (10:11)
[2022-11-04] MEDS: lisinopriL 20 MG TABLET PO (10:11)
[2022-11-04] MEDS: Pramipexole Di-HCL 0.25 MG TABLET PO ×3 (10:11→20:41)
[2022-11-04] MEDS: Escitalopram Oxalate 10 MG TABLET PO (10:11)
[2022-11-04] MEDS: Naltrexone HCl 50 MG TABLET PO (10:11)
[2022-11-04] MEDS: calcium polycarbophiL TABLET 1 TAB PO (10:11)
[2022-11-04] MEDS: Mineral Oil/Petrolatum,White 106 GM Tube 1 APPL TOPICAL ×2 (10:12→20:44)
[2022-11-04] MEDS: Lidocaine 5 % Ointment 35 GM 1 APPL TOPICAL ×3 (10:12→23:10)
[2022-11-04] MEDS: Nystatin Powder 15 GM BOTTLE 1 APPL TOPICAL ×2 (10:12→23:09)
[2022-11-04] MEDS: Cholecalciferol (Vitamin D3) 10 MCG TABLET PO (10:12)
--- NOTE | 2022-11-04 15:47 | HO.PSYCHPN ---
Subjective Subjective Date of Service: 11/04/22 Reason For Visit: Depression aggression Subjective Notes: Conditional Voluntary Interim History: Patient quite depressed lethargic hopeless helpless with thoughts of suicide denies active plan Mental Status Exam Mental Status Exam Narrative: Sad looking Patient Appearance: Appropriate Patient Orientation: Person, Place and Situation Level of Consciousness: Alert Patient Behavior: Guarded, Cooperative, Fatigued and Isolative Mood Description: Constricted, Depressed, Anxious and Labile Affect Description: Constricted, Angry and Apprehensive Patient Cognition Impaired: Yes Ability to Follow Directions: Fair Speech Pattern: Spontaneous Speech Memory Description: Remote Impaired and Episodic Impaired Hallucinations: None Delusions: Not Present Thought Process: Distracted and Goal Oriented Thought Content: positive for [place], positive for Circumstantial and positive for Suicidal Ideation (denies) Depressive Symptoms: Increased Anxiety, Loss of Int. in Activity and Thoughts of /Suicide (denies) Abnormal Motor Activity Signs and Symptoms: Psychomotor Retardation Judgement: Poor Diagnostics Vital Signs (24Hr): Vital Signs - 24 hr 11/03/22 18:00 11/04/22 06:00 Temperature 97.5 F 98.6 F Pulse Rate 80 82 Respiratory Rate 18 16 Blood Pressure 104/61 130/68 Pulse Oximetry 94 96 Oxygen Delivery Method Room Air BMI result Body Mass Index 31.7 Labs Results: 10/20/22 14:26 10/03/22 19:19 Labs: Laboratory Results - last 48 hr 11/03/22 18:05 Influenza Type A (PCR) NEGATIVE Influenza Type B (PCR) NEGATIVE RSV RNA Qual (PCR) NEGATIVE SARS-CoV-2 RNA (RT-PCR) NEGATIVE Imaging Radiology Impressions: ITS Impressions Chest X-Ray 10/20/22 15:45 IMPRESSION: 1. Low lung volumes with bibasilar linear disc atelectasis versus scarring. 2. No airspace consolidation or effusion. Medications Medications Current Medications Acetaminophen (Acetaminophen 325 Mg Tablet) 650 mg PO Q6H PRN PRN Reason: Headache/Pain Mild Scale (1-3) Last Admin: 11/02/22 13:47 Dose: 650 mg Al Hydroxide/Mg Hydroxide (Magnesium Hydrox/Alum Hydrox 30 Ml Oral.Susp) 30 ml PO Q6H PRN PRN Reason: Heartburn/Nausea Last Admin: 10/19/22 18:47 Dose: 30 ml Albuterol Sulfate (Albuterol Sulfate 90 Mcg 8 Gm Inhaler) 2 puff INHALE Q6H PRN PRN Reason: Wheezing Amlodipine Besylate (Amlodipine Besylate 5 Mg Tablet) 5 mg PO DAILY [facility]; Protocol Last Admin: 11/04/22 10:11 Dose: 5 mg Benzocaine (Throat Lozenge, Medicated Lozenge) 1 lozenge MUCOUS MEM Q2H PRN PRN Reason: Sore Throat Last Admin: 10/06/22 18:51 Dose: 1 lozenge Calcium Polycarbophil (Calcium Polycarbophil Tablet) 1 tab PO DAILY [facility] Last Admin: 11/04/22 10:11 Dose: 1 tab Docusate Sodium (Docusate Sodium 100 Mg Capsule) 100 mg PO DAILY PRN PRN Reason: constipation Last Admin: 10/30/22 22:09 Dose: 100 mg Escitalopram Oxalate (Escitalopram Oxalate 5 Mg Tablet) 15 mg PO DAILY [facility] Finasteride (Finasteride 5 Mg Tablet) 5 mg PO DAILY [facility] Last Admin: 11/04/22 10:10 Dose: 5 mg Gabapentin (Gabapentin 300 Mg Capsule) 600 mg PO TID [facility] Last Admin: 11/04/22 10:11 Dose: 600 mg Hydroxyzine HCl (Hydroxyzine Hcl 25 Mg Tablet) 25 mg PO Q6H PRN PRN Reason: Anxiety Last Admin: 11/04/22 01:41 Dose: 25 mg Lamotrigine (Lamotrigine 100 Mg Tablet) 200 mg PO BID [facility] Last Admin: 11/04/22 10:10 Dose: 200 mg Latanoprost (Latanoprost 0.005 % Ophth No 2.5 Ml Drops) 1 drop EYE-BOTH BEDTIME [facility] Last Admin: 11/03/22 20:04 Dose: 1 drop Lidocaine (Lidocaine 5 % Ointment 35 Gm) 1 appl TOPICAL QID [facility] Last Admin: 11/04/22 15:20 Dose: Not Given Lisinopril (Lisinopril 20 Mg Tablet) 20 mg PO DAILY [facility]; Protocol Last Admin: 11/04/22 10:11 Dose: 20 mg Lorazepam (Lorazepam 1 Mg Tablet) 1 mg PO BEDTIME PRN PRN Reason: Anxiety Last Admin: 11/03/22 20:03 Dose: 1 mg Magnesium Hydroxide (Milk Of Magnesia 30 Ml Oral.Susp) 30 ml PO DAILY PRN PRN Reason: Constipation Last Admin: 12/06/22 22:46 Dose: 30 ml Melatonin (Melatonin 3 Mg Tablet) 9 mg PO BEDTIME [facility] Last Admin: 11/03/22 20:01 Dose: 9 mg Multi-Ingred Cream/Lotion/Oil/Oint (Mineral Oil/Petrolatum,White 106 Gm Tube) 1 appl TOPICAL BID [facility]; Protocol Last Admin: 11/04/22 10:12 Dose: 1 appl Multivitamins/Vitamin C (Multivitamin Tablet) 1 tab PO DAILY [facility] Last Admin: 11/04/22 10:11 Dose: 1 tab Naltrexone HCl (Naltrexone Hcl 50 Mg Tablet) 50 mg PO DAILY [facility] Last Admin: 11/04/22 10:11 Dose: 50 mg Nortriptyline HCl (Nortriptyline Hcl 25 Mg Capsule) 100 mg PO BEDTIME [facility] Last Admin: 11/03/22 20:03 Dose: 100 mg Nystatin (Nystatin Powder 15 Gm Bottle) 1 appl TOPICAL BID [facility] Last Admin: 11/04/22 10:12 Dose: 1 appl Omeprazole (Omeprazole 20 Mg Capsule.Dr) 20 mg PO BID@0630,1630 [facility] Last Admin: 11/04/22 06:40 Dose: 20 mg Oxybutynin Chloride (Oxybutynin Chloride Er 5 Mg Tab.Er.24) 10 mg PO DAILY [facility] Last Admin: 11/04/22 10:10 Dose: 10 mg Polyethylene Glycol (Polyethylene Glycol 3350 17 Gm Powd.Pack) 17 gm PO DAILY@1600 [facility] Last Admin: 11/03/22 16:25 Dose: 17 gm Pramipexole Dihydrochloride (Pramipexole Di-Hcl 0.25 Mg Tablet) 0.25 mg PO TID [facility] Last Admin: 11/04/22 10:11 Dose: 0.25 mg Psyllium Hydrophilic Mucilloid (Psyllium Seed 3.4 Gm Powd.Pack) 3.4 gm PO DAILY [facility] Last Admin: 11/04/22 10:10 Dose: 3.4 gm Quetiapine Fumarate (Quetiapine Fumarate 25 Mg Tablet) 25 mg PO Q4H PRN PRN Reason: Anxiety Last Admin: 11/01/22 14:40 Dose: 25 mg Quetiapine Fumarate (Quetiapine Fumarate 50 Mg Tablet) 50 mg PO BID@0900,1700 [facility] Last Admin: 11/04/22 10:10 Dose: 50 mg Quetiapine Fumarate (Quetiapine Fumarate 50 Mg Tablet) 150 mg PO BEDTIME [facility] Last Admin: 11/03/22 20:03 Dose: 150 mg Tamsulosin HCl (Tamsulosin Hcl 0.4 Mg Capsule) 0.4 mg PO DAILY [facility] Last Admin: 11/04/22 10:11 Dose: 0.4 mg Trazodone HCl (Trazodone Hcl 100 Mg Tablet) 200 mg PO BEDTIME [facility] Last Admin: 11/03/22 20:02 Dose: 200 mg Trazodone HCl (Trazodone Hcl 50 Mg Tablet) 50 mg PO BEDTIME PRN PRN Reason: Insomnia Last Admin: 11/04/22 01:41 Dose: 50 mg Vitamin D (Cholecalciferol (Vitamin D3) 10 Mcg Tablet) 10 mcg PO DAILY [facility] Last Admin: 11/04/22 10:12 Dose: 10 mcg Allergies Allergies Allergy/AdvReac Type Severity Reaction Status Date / Time fentanyl [FENTANYL] Allergy Intermediate unknown Verified 04/08/22 07:00 Assessment & Plan Assessment & Plan (1) Dermatitis, unspecified: Status: Acute Code(s): L30.9 - Dermatitis, unspecified Plan The patient is a 67-year-old male, , on his psi after TBI with a long history of depression with suicidal ideation with several prior admissions into this facility with a similar presentation. 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 The patient has a long history of alcohol use disorder that he was not able to process or work on it. Plan 1. Continue with the same treatment. 2. We will work with the high school social science teacher and DDS for a proper discharge planning. 3. Continue with recommendations of Wound Care. 4. Increase Seroquel up to 150 mg po qhs. 10/30/22 restart lorazepam 1 hs prn insomnia norterip inc 100 hs level in 50 s monitor ekg 11/01 continue current tx plan 11/02/22- Bedside Swallow eval. s/p choking episode on 11/01. 2021 Increase Lexapro encourage CBT skills need supportive coaching patient increasingly hopeless helpless denies active self-harm check nortriptyline level I spent minutes with the patient and/or on the patient floor today, greater than?50% of which was spent counseling/coordinating care. Reason for contiued inpatient stay Substantial Risk for: harm to self, rapid decompensation and med/psych decompensation Time Spent With Patient Time: Total time managing care of this patient today ____ minutes.
[2022-11-04] MEDS: polyethylene glycoL 3350 17 GM POWD.PACK PO (16:18)
--- NOTE | 2022-11-04 19:13 | PC.NURSE ---
Pt refusing to allow medications to be crushed and placed in puree, stated I don't need that . Pt swallowing pills whole with water, no choking noted.
[2022-11-04 20:00] VITALS: BP 140/69; PULSE 72; RESP 16; TEMP 36.3; O2SAT 97
[2022-11-04] MEDS: LORazepam 1 MG TABLET PO (20:37)
[2022-11-04] MEDS: traZODone HCL 100 MG TABLET 200 MG PO (20:37)
[2022-11-04] MEDS: Melatonin 3 MG TABLET 9 MG PO (20:38)
[2022-11-04] MEDS: Nortriptyline HCl 25 MG CAPSULE 100 MG PO (20:42)
[2022-11-04] MEDS: Latanoprost 0.005 % Ophth Sol 2.5 ML DROPS 1 DROP EYE-BOTH (20:44)
[2022-11-04] MEDS: QUEtiapine Fumarate 50 MG TABLET 150 MG PO (23:09)
[2022-11-05] MEDS: traZODone HCL 50 MG TABLET PO (02:13)
[2022-11-05] MEDS: Omeprazole 20 MG CAPSULE.DR PO ×2 (06:06→16:52)
[2022-11-05 08:00] VITALS: BP 110/69; PULSE 76; RESP 18; TEMP 36.8; O2SAT 96
--- NOTE | 2022-11-05 09:25 | HO.PSYCHPN ---
Subjective Subjective Date of Service: 11/05/22 Reason For Visit: Depression aggression Subjective Notes: Conditional Voluntary Interim History: Patient is depressed and withdrawn irritable and feeling overwhelmed hopeless helpless. He has been having trouble sitting in his wheelchair and has been sliding unclear why exactly this is happening right now case and this problem reviewed with nursing and occupational therapy Medication Compliance: Yes Mental Status Exam Mental Status Exam Narrative: Sad looking Patient Appearance: Appropriate Patient Orientation: Person, Place, Time and Situation Level of Consciousness: Alert Patient Behavior: Guarded, Swearing, Anxious, Fatigued and Isolative Mood Description: Constricted, Depressed, Anxious and Labile Affect Description: Constricted, Angry and Apprehensive Patient Cognition Impaired: Yes Ability to Follow Directions: Fair Speech Pattern: Spontaneous Speech Memory Description: Episodic Impaired Hallucinations: None Delusions: Not Present Thought Process: Distracted and Goal Oriented Thought Content: positive for Circumstantial and positive for Preoccupation Depressive Symptoms: Increased Anxiety, Increased Irritability, Loss of Int. in Activity, Feelings of Worthlessness, Unhappiness, Increased Fatigue, Thoughts of /Suicide (denies) and Difficulty Concentrating Abnormal Motor Activity Signs and Symptoms: Psychomotor Retardation Judgement: Poor Diagnostics Vital Signs (24Hr): Vital Signs - 24 hr 11/04/22 20:00 Temperature 97.4 F Pulse Rate 72 Respiratory Rate 16 Blood Pressure 140/69 H Pulse Oximetry 97 Oxygen Delivery Method Room Air BMI result Body Mass Index 31.7 Labs Results: 10/20/22 14:26 10/03/22 19:19 Labs: Laboratory Results - last 48 hr 11/03/22 18:05 Influenza Type A (PCR) NEGATIVE Influenza Type B (PCR) NEGATIVE RSV RNA Qual (PCR) NEGATIVE SARS-CoV-2 RNA (RT-PCR) NEGATIVE Imaging Radiology Impressions: ITS Impressions Chest X-Ray 10/20/22 15:45 IMPRESSION: 1. Low lung volumes with bibasilar linear disc atelectasis versus scarring. 2. No airspace consolidation or effusion. Medications Medications Current Medications Acetaminophen (Acetaminophen 325 Mg Tablet) 650 mg PO Q6H PRN PRN Reason: Headache/Pain Mild Scale (1-3) Last Admin: 11/02/22 13:47 Dose: 650 mg Al Hydroxide/Mg Hydroxide (Magnesium Hydrox/Alum Hydrox 30 Ml Oral.Susp) 30 ml PO Q6H PRN PRN Reason: Heartburn/Nausea Last Admin: 10/19/22 18:47 Dose: 30 ml Albuterol Sulfate (Albuterol Sulfate 90 Mcg 8 Gm Inhaler) 2 puff INHALE Q6H PRN PRN Reason: Wheezing Amlodipine Besylate (Amlodipine Besylate 5 Mg Tablet) 5 mg PO DAILY [facility]; Protocol Last Admin: 11/04/22 10:11 Dose: 5 mg Benzocaine (Throat Lozenge, Medicated Lozenge) 1 lozenge MUCOUS MEM Q2H PRN PRN Reason: Sore Throat Last Admin: 10/06/22 18:51 Dose: 1 lozenge Calcium Polycarbophil (Calcium Polycarbophil Tablet) 1 tab PO DAILY [facility] Last Admin: 11/04/22 10:11 Dose: 1 tab Docusate Sodium (Docusate Sodium 100 Mg Capsule) 100 mg PO DAILY PRN PRN Reason: constipation Last Admin: 10/30/22 22:09 Dose: 100 mg Escitalopram Oxalate (Escitalopram Oxalate 5 Mg Tablet) 15 mg PO DAILY [facility] Finasteride (Finasteride 5 Mg Tablet) 5 mg PO DAILY [facility] Last Admin: 11/04/22 10:10 Dose: 5 mg Gabapentin (Gabapentin 300 Mg Capsule) 600 mg PO TID [facility] Last Admin: 11/04/22 20:40 Dose: 600 mg Hydroxyzine HCl (Hydroxyzine Hcl 25 Mg Tablet) 25 mg PO Q6H PRN PRN Reason: Anxiety Last Admin: 11/04/22 01:41 Dose: 25 mg Lamotrigine (Lamotrigine 100 Mg Tablet) 200 mg PO BID [facility] Last Admin: 11/04/22 20:00 Dose: 200 mg Latanoprost (Latanoprost 0.005 % Ophth No 2.5 Ml Drops) 1 drop EYE-BOTH BEDTIME [facility] Last Admin: 11/04/22 20:44 Dose: 1 drop Lidocaine (Lidocaine 5 % Ointment 35 Gm) 1 appl TOPICAL QID [facility] Last Admin: 11/04/22 23:10 Dose: 1 appl Lisinopril (Lisinopril 20 Mg Tablet) 20 mg PO DAILY [facility]; Protocol Last Admin: 11/04/22 10:11 Dose: 20 mg Magnesium Hydroxide (Milk Of Magnesia 30 Ml Oral.Susp) 30 ml PO DAILY PRN PRN Reason: Constipation Last Admin: 10/21/22 22:46 Dose: 30 ml Melatonin (Melatonin 3 Mg Tablet) 9 mg PO BEDTIME [facility] Last Admin: 11/04/22 20:38 Dose: 9 mg Multi-Ingred Cream/Lotion/Oil/Oint (Mineral Oil/Petrolatum,White 106 Gm Tube) 1 appl TOPICAL BID [facility]; Protocol Last Admin: 11/04/22 20:44 Dose: 1 appl Multivitamins/Vitamin C (Multivitamin Tablet) 1 tab PO DAILY [facility] Last Admin: 11/04/22 10:11 Dose: 1 tab Naltrexone HCl (Naltrexone Hcl 50 Mg Tablet) 50 mg PO DAILY [facility] Last Admin: 11/04/22 10:11 Dose: 50 mg Nortriptyline HCl (Nortriptyline Hcl 25 Mg Capsule) 100 mg PO BEDTIME [facility] Last Admin: 11/04/22 20:42 Dose: 100 mg Nystatin (Nystatin Powder 15 Gm Bottle) 1 appl TOPICAL BID [facility] Last Admin: 11/04/22 23:09 Dose: 1 appl Omeprazole (Omeprazole 20 Mg Capsule.Dr) 20 mg PO BID@0630,1630 [facility] Last Admin: 11/05/22 06:06 Dose: 20 mg Oxybutynin Chloride (Oxybutynin Chloride Er 5 Mg Tab.Er.24) 10 mg PO DAILY [facility] Last Admin: 11/04/22 10:10 Dose: 10 mg Polyethylene Glycol (Polyethylene Glycol 3350 17 Gm Powd.Pack) 17 gm PO DAILY@1600 [facility] Last Admin: 11/04/22 16:18 Dose: 17 gm Pramipexole Dihydrochloride (Pramipexole Di-Hcl 0.25 Mg Tablet) 0.25 mg PO TID [facility] Last Admin: 11/04/22 20:41 Dose: 0.25 mg Psyllium Hydrophilic Mucilloid (Psyllium Seed 3.4 Gm Powd.Pack) 3.4 gm PO DAILY [facility] Last Admin: 11/04/22 10:10 Dose: 3.4 gm Quetiapine Fumarate (Quetiapine Fumarate 25 Mg Tablet) 25 mg PO Q4H PRN PRN Reason: Anxiety Last Admin: 11/01/22 14:40 Dose: 25 mg Quetiapine Fumarate (Quetiapine Fumarate 50 Mg Tablet) 50 mg PO BID@0900,1700 [facility] Last Admin: 11/04/22 16:18 Dose: 50 mg Quetiapine Fumarate (Quetiapine Fumarate 50 Mg Tablet) 150 mg PO BEDTIME [facility] Last Admin: 11/04/22 23:09 Dose: 150 mg Tamsulosin HCl (Tamsulosin Hcl 0.4 Mg Capsule) 0.4 mg PO DAILY [facility] Last Admin: 11/04/22 10:11 Dose: 0.4 mg Trazodone HCl (Trazodone Hcl 100 Mg Tablet) 200 mg PO BEDTIME [facility] Last Admin: 11/04/22 20:37 Dose: 200 mg Trazodone HCl (Trazodone Hcl 50 Mg Tablet) 50 mg PO BEDTIME PRN PRN Reason: Insomnia Last Admin: 11/05/22 02:13 Dose: 50 mg Vitamin D (Cholecalciferol (Vitamin D3) 10 Mcg Tablet) 10 mcg PO DAILY [facility] Last Admin: 11/04/22 10:12 Dose: 10 mcg Allergies Allergies Allergy/AdvReac Type Severity Reaction Status Date / Time fentanyl [FENTANYL] Allergy Intermediate unknown Verified 04/08/22 07:00 Assessment & Plan Assessment & Plan (1) Dermatitis, unspecified: Status: Acute Code(s): L30.9 - Dermatitis, unspecified Plan The patient is a 67-year-old male, , on his psi after TBI with a long history of depression with suicidal ideation with several prior admissions into this facility with a similar presentation. At this moment also, he has problems of housing since he will not be able to go back to his regular long-term. The patient has a long history of alcohol use disorder that he was not able to process or work on it. Plan 1. Continue with the same treatment. 2. We will work with the public health social worker and DDS for a proper discharge planning. 3. Continue with recommendations of Wound Care. 4. Increase Seroquel up to 150 mg po qhs. 10/30/22 restart lorazepam 1 hs prn insomnia norterip inc 100 hs level in 50 s monitor ekg 11/01 continue current tx plan 11/02/22- Bedside Swallow eval. s/p choking episode on 11/01. 2021 Increase Lexapro encourage CBT skills need supportive coaching patient increasingly hopeless helpless denies active self-harm check nortriptyline level 11/05/2022 Check nortriptyline level patient on Seroquel nortriptyline Lexapro. Needs much reassurance and support the has difficulty interacting at times secondary to a hopelessness irritability passive SI. Patient has having difficulty maintaining his posture in his chair unclear why this is happening for discuss safety issues with nursing will need OT and potentially Pt input I spent minutes with the patient and/or on the patient floor today, greater than?50% of which was spent counseling/coordinating care. Patient educated on: medication risk/benefits, therapeutic strategies and medical condition Informed Consent: understands Reason for contiued inpatient stay Substantial Risk for: harm to self and med/psych decompensation Time Spent With Patient Time: Total time managing care of this patient today _35_ minutes.
[2022-11-05] MEDS: lisinopriL 20 MG TABLET PO (09:56)
[2022-11-05] MEDS: Finasteride 5 MG TABLET PO (09:56)
[2022-11-05] MEDS: Tamsulosin HCL 0.4 MG CAPSULE PO (09:56)
[2022-11-05] MEDS: Gabapentin 300 MG CAPSULE 600 MG PO ×3 (09:56→20:45)
[2022-11-05] MEDS: Multivitamin TABLET 1 TAB PO (09:57)
[2022-11-05] MEDS: amLODIPine Besylate 5 MG TABLET PO (09:57)
[2022-11-05] MEDS: QUEtiapine Fumarate 50 MG TABLET PO ×2 (09:58→16:53)
[2022-11-05] MEDS: Pramipexole Di-HCL 0.25 MG TABLET PO ×3 (09:58→20:45)
[2022-11-05] MEDS: Naltrexone HCl 50 MG TABLET PO (09:59)
[2022-11-05] MEDS: lamoTRIgine 100 MG TABLET 200 MG PO ×2 (10:00→20:44)
[2022-11-05] MEDS: calcium polycarbophiL TABLET 1 TAB PO (10:00)
[2022-11-05] MEDS: Escitalopram Oxalate 5 MG TABLET 15 MG PO (10:01)
[2022-11-05] MEDS: Cholecalciferol (Vitamin D3) 10 MCG TABLET PO (10:02)
[2022-11-05] MEDS: Nystatin Powder 15 GM BOTTLE 1 APPL TOPICAL ×2 (11:38→20:54)
[2022-11-05] MEDS: Lidocaine 5 % Ointment 35 GM 1 APPL TOPICAL ×3 (11:39→20:54)
[2022-11-05 11:45] VITALS: BP 135/82; PULSE 76; RESP 16; TEMP 36.2; O2SAT 96
--- NOTE | 2022-11-05 15:12 | PC.NURSE ---
Pt sliding down in wheelchair and sitting in slouched position this am in community area. Encouraged by staff to reposition self in chair, which he is able to do and has demonstrated this. Pt observed sitting in franco in slouched position just prior to slipping from chair and required direction to do this which initially he was resistive to. This typewriter mechanic informed by another staff member that pt had slipped out of wheelchair onto floor in franco, after this typewriter mechanic had cued pt in pulling self up to sitting position in wheelchair. Pt intially c/o pain right hip and lower back, as he was positioned on then off of foot pedals as he slid to floor. Pt experiences pain in right hip and lower back frequently, but stated pain had increased. Assisted from floor by christos lift. VS 135/82 P76 O2 sat 96% rm air temp 972. Assisted to bathroom by miriamMoya Okruga. Body checked, no redness, inflammation or ecchymotic areas noted. Dr Haskins and Dr Warren notified, no new orders. Pt requested to rest in bed after lunch and assisted with miriam-steady. Denied pain to right hip and lower back at this time. Anika team notified of fall including OT, SW, Director Of Research via [employer].
[2022-11-05] MEDS: Mineral Oil/Petrolatum,White 106 GM Tube 1 APPL TOPICAL ×2 (15:33→20:54)
[2022-11-05] MEDS: polyethylene glycoL 3350 17 GM POWD.PACK PO (16:52)
[2022-11-05 18:00] VITALS: BP 128/70; PULSE 64; RESP 18; TEMP 36.3; O2SAT 96
--- NOTE | 2022-11-05 18:18 | PC.NURSE ---
Pt continued to slide to slouching position in wheelchair despite staff cueing to push back in wheelchair to upright position. Met with Dr Haskins and decision made to offer recliner for sitting. Offer accepted and placed in recliner after supper. Sat upright in wheelchair while eating, slouching noted when meal completed. Sitting in recliner at present time, positioning upright initially and then requested reclining position of recliner.
[2022-11-05] MEDS: Nortriptyline HCl 25 MG CAPSULE 100 MG PO (20:43)
[2022-11-05] MEDS: QUEtiapine Fumarate 50 MG TABLET 150 MG PO (20:44)
[2022-11-05] MEDS: Melatonin 3 MG TABLET 9 MG PO (20:44)
[2022-11-05] MEDS: traZODone HCL 100 MG TABLET 200 MG PO (20:45)
[2022-11-05] MEDS: Latanoprost 0.005 % Ophth Sol 2.5 ML DROPS 1 DROP EYE-BOTH (20:54)
[2022-11-06] MEDS: hydrOXYzine HCL 25 MG TABLET PO (01:03)
[2022-11-06] MEDS: traZODone HCL 50 MG TABLET PO (01:03)
[2022-11-06] MEDS: Omeprazole 20 MG CAPSULE.DR PO ×2 (06:14→16:48)
[2022-11-06 07:30] VITALS: BP 127/75; PULSE 60; RESP 16; TEMP 36.4; O2SAT 95
[2022-11-06] MEDS: Cholecalciferol (Vitamin D3) 10 MCG TABLET PO (08:10)
[2022-11-06] MEDS: lisinopriL 20 MG TABLET PO (08:10)
[2022-11-06] MEDS: Naltrexone HCl 50 MG TABLET PO (08:10)
[2022-11-06] MEDS: Escitalopram Oxalate 5 MG TABLET 15 MG PO (08:11)
[2022-11-06] MEDS: QUEtiapine Fumarate 50 MG TABLET PO ×2 (08:11→16:48)
[2022-11-06] MEDS: Gabapentin 300 MG CAPSULE 600 MG PO ×3 (08:11→21:19)
[2022-11-06] MEDS: lamoTRIgine 100 MG TABLET 200 MG PO ×2 (08:11→21:20)
[2022-11-06] MEDS: Pramipexole Di-HCL 0.25 MG TABLET PO ×3 (08:11→21:19)
[2022-11-06] MEDS: Finasteride 5 MG TABLET PO (08:12)
[2022-11-06] MEDS: Tamsulosin HCL 0.4 MG CAPSULE PO (08:12)
[2022-11-06] MEDS: calcium polycarbophiL TABLET 1 TAB PO (08:12)
[2022-11-06] MEDS: amLODIPine Besylate 5 MG TABLET PO (08:12)
[2022-11-06] MEDS: Multivitamin TABLET 1 TAB PO (08:12)
--- NOTE | 2022-11-06 15:25 | HO.PSYCHPN ---
Subjective Subjective Date of Service: 11/06/22 Reason For Visit: Depression aggression Subjective Notes: Conditional Voluntary Interim History: The patient is hopeless helpless despondent difficulty tolerated his current situation. Discussed with patient using Anika chair with seems to be helpful alternating with his wheelchair. Discussed with Administration having the wheelchair company come in to do a a consult and make changes as needed patient continues to complain of significant anxiety Mental Status Exam Mental Status Exam Narrative: Sad looking Patient Appearance: Disheveled and Perspiring Patient Orientation: Person, Place, Time and Situation Level of Consciousness: Awake and Alert Patient Behavior: Guarded, Anxious, Fatigued and Isolative Mood Description: Constricted, Depressed, Anxious, Labile and Apprehensive Affect Description: Constricted, Angry and Apprehensive Patient Cognition Impaired: Yes Ability to Follow Directions: Fair Speech Pattern: Spontaneous Speech Memory Description: Episodic Impaired Hallucinations: None Delusions: Not Present Thought Process: Distracted and Goal Oriented Thought Content: positive for Circumstantial and positive for Preoccupation Depressive Symptoms: Increased Anxiety, Increased Irritability, Loss of Int. in Activity, Feelings of Worthlessness, Unhappiness, Increased Fatigue, Thoughts of /Suicide (denies) and Difficulty Concentrating Abnormal Motor Activity Signs and Symptoms: Psychomotor Retardation Judgement: Poor Diagnostics Vital Signs (24Hr): Vital Signs - 24 hr 11/05/22 18:00 11/06/22 07:30 Temperature 97.3 F 97.6 F Pulse Rate 64 60 Respiratory Rate 18 16 Blood Pressure 128/70 127/75 Pulse Oximetry 96 95 Oxygen Delivery Method Room Air Room Air BMI result Body Mass Index 31.7 Labs Results: 10/20/22 14:26 10/03/22 19:19 Imaging Radiology Impressions: ITS Impressions Chest X-Ray 10/20/22 15:45 IMPRESSION: 1. Low lung volumes with bibasilar linear disc atelectasis versus scarring. 2. No airspace consolidation or effusion. Medications Medications Current Medications Acetaminophen (Acetaminophen 325 Mg Tablet) 650 mg PO Q6H PRN PRN Reason: Headache/Pain Mild Scale (1-3) Last Admin: 11/02/22 13:47 Dose: 650 mg Al Hydroxide/Mg Hydroxide (Magnesium Hydrox/Alum Hydrox 30 Ml Oral.Susp) 30 ml PO Q6H PRN PRN Reason: Heartburn/Nausea Last Admin: 10/19/22 18:47 Dose: 30 ml Albuterol Sulfate (Albuterol Sulfate 90 Mcg 8 Gm Inhaler) 2 puff INHALE Q6H PRN PRN Reason: Wheezing Amlodipine Besylate (Amlodipine Besylate 5 Mg Tablet) 5 mg PO DAILY [facility]; Protocol Last Admin: 11/06/22 08:12 Dose: 5 mg Benzocaine (Throat Lozenge, Medicated Lozenge) 1 lozenge MUCOUS MEM Q2H PRN PRN Reason: Sore Throat Last Admin: 10/06/22 18:51 Dose: 1 lozenge Calcium Polycarbophil (Calcium Polycarbophil Tablet) 1 tab PO DAILY [facility] Last Admin: 11/06/22 08:12 Dose: 1 tab Docusate Sodium (Docusate Sodium 100 Mg Capsule) 100 mg PO DAILY PRN PRN Reason: constipation Last Admin: 10/30/22 22:09 Dose: 100 mg Escitalopram Oxalate (Escitalopram Oxalate 5 Mg Tablet) 15 mg PO DAILY [facility] Last Admin: 11/06/22 08:11 Dose: 15 mg Finasteride (Finasteride 5 Mg Tablet) 5 mg PO DAILY [facility] Last Admin: 11/06/22 08:12 Dose: 5 mg Gabapentin (Gabapentin 300 Mg Capsule) 600 mg PO TID [facility] Last Admin: 11/06/22 08:11 Dose: 600 mg Hydroxyzine HCl (Hydroxyzine Hcl 25 Mg Tablet) 25 mg PO Q6H PRN PRN Reason: Anxiety Last Admin: 11/06/22 01:03 Dose: 25 mg Lamotrigine (Lamotrigine 100 Mg Tablet) 200 mg PO BID [facility] Last Admin: 11/06/22 08:11 Dose: 200 mg Latanoprost (Latanoprost 0.005 % Ophth No 2.5 Ml Drops) 1 drop EYE-BOTH BEDTIME [facility] Last Admin: 11/05/22 20:54 Dose: 1 drop Lidocaine (Lidocaine 5 % Ointment 35 Gm) 1 appl TOPICAL QID [facility] Last Admin: 11/06/22 11:49 Dose: Not Given Lisinopril (Lisinopril 20 Mg Tablet) 20 mg PO DAILY [facility]; Protocol Last Admin: 11/06/22 08:10 Dose: 20 mg Lorazepam (Lorazepam 0.5 Mg Tablet) 0.5 mg PO Q8H PRN PRN Reason: Anxiety Lorazepam (Lorazepam 0.5 Mg Tablet) 0.5 mg PO BEDTIME [facility] Magnesium Hydroxide (Milk Of Magnesia 30 Ml Oral.Susp) 30 ml PO DAILY PRN PRN Reason: Constipation Last Admin: 10/21/22 22:46 Dose: 30 ml Melatonin (Melatonin 3 Mg Tablet) 9 mg PO BEDTIME [facility] Last Admin: 11/05/22 20:44 Dose: 9 mg Multi-Ingred Cream/Lotion/Oil/Oint (Mineral Oil/Petrolatum,White 106 Gm Tube) 1 appl TOPICAL BID [facility]; Protocol Last Admin: 11/06/22 11:49 Dose: Not Given Multivitamins/Vitamin C (Multivitamin Tablet) 1 tab PO DAILY [facility] Last Admin: 11/06/22 08:12 Dose: 1 tab Naltrexone HCl (Naltrexone Hcl 50 Mg Tablet) 50 mg PO DAILY [facility] Last Admin: 11/06/22 08:10 Dose: 50 mg Nortriptyline HCl (Nortriptyline Hcl 25 Mg Capsule) 100 mg PO BEDTIME [facility] Last Admin: 11/05/22 20:43 Dose: 100 mg Nystatin (Nystatin Powder 15 Gm Bottle) 1 appl TOPICAL BID [facility] Last Admin: 11/06/22 11:49 Dose: Not Given Omeprazole (Omeprazole 20 Mg Capsule.Dr) 20 mg PO BID@0630,1630 [facility] Last Admin: 11/06/22 06:14 Dose: 20 mg Oxybutynin Chloride (Oxybutynin Chloride Er 5 Mg Tab.Er.24) 10 mg PO DAILY [facility] Last Admin: 11/06/22 08:11 Dose: 10 mg Polyethylene Glycol (Polyethylene Glycol 3350 17 Gm Powd.Pack) 17 gm PO DAILY@1600 [facility] Last Admin: 11/05/22 16:52 Dose: 17 gm Pramipexole Dihydrochloride (Pramipexole Di-Hcl 0.25 Mg Tablet) 0.25 mg PO TID [facility] Last Admin: 11/06/22 08:11 Dose: 0.25 mg Psyllium Hydrophilic Mucilloid (Psyllium Seed 3.4 Gm Powd.Pack) 3.4 gm PO DAILY [facility] Last Admin: 11/06/22 08:09 Dose: 3.4 gm Quetiapine Fumarate (Quetiapine Fumarate 25 Mg Tablet) 25 mg PO Q4H PRN PRN Reason: Anxiety Last Admin: 11/01/22 14:40 Dose: 25 mg Quetiapine Fumarate (Quetiapine Fumarate 50 Mg Tablet) 50 mg PO BID@0900,1700 [facility] Last Admin: 11/06/22 08:11 Dose: 50 mg Quetiapine Fumarate (Quetiapine Fumarate 50 Mg Tablet) 150 mg PO BEDTIME [facility] Last Admin: 11/05/22 20:44 Dose: 150 mg Tamsulosin HCl (Tamsulosin Hcl 0.4 Mg Capsule) 0.4 mg PO DAILY [facility] Last Admin: 11/06/22 08:12 Dose: 0.4 mg Trazodone HCl (Trazodone Hcl 100 Mg Tablet) 200 mg PO BEDTIME [facility] Last Admin: 11/05/22 20:45 Dose: 200 mg Trazodone HCl (Trazodone Hcl 50 Mg Tablet) 50 mg PO BEDTIME PRN PRN Reason: Insomnia Last Admin: 11/06/22 01:03 Dose: 50 mg Vitamin D (Cholecalciferol (Vitamin D3) 10 Mcg Tablet) 10 mcg PO DAILY [facility] Last Admin: 11/06/22 08:10 Dose: 10 mcg Allergies Allergies Allergy/AdvReac Type Severity Reaction Status Date / Time fentanyl [FENTANYL] Allergy Intermediate unknown Verified 04/08/22 07:00 Assessment & Plan Assessment & Plan (1) Dermatitis, unspecified: Status: Acute Code(s): L30.9 - Dermatitis, unspecified Plan The patient is a 67-year-old male, , on his psi after TBI with a long history of depression with suicidal ideation with several prior admissions into this facility with a similar presentation. At this moment also, he has problems of housing since he will not be able to go back to his regular prison. The patient has a long history of alcohol use disorder that he was not able to process or work on it. Plan 1. Continue with the same treatment. 2. We will work with the social worker health services and DDS for a proper discharge planning. 3. Continue with recommendations of Wound Care. 4. Increase Seroquel up to 150 mg po qhs. 10/30/22 restart lorazepam 1 hs prn insomnia norterip inc 100 hs level in 50 s monitor ekg 11/01 continue current tx plan 11/02/22- Bedside Swallow eval. s/p choking episode on 11/01. 2021 Increase Lexapro encourage CBT skills need supportive coaching patient increasingly hopeless helpless denies active self-harm check nortriptyline level 11/05/2022 Check nortriptyline level patient on Seroquel nortriptyline Lexapro. Needs much reassurance and support the has difficulty interacting at times secondary to a hopelessness irritability passive SI. Patient has having difficulty maintaining his posture in his chair unclear why this is happening for discuss safety issues with nursing will need OT and potentially Pt input 11/06/2022 Patient depressed and anxious tried to review cognitive behavioral perspectives ways to emotionally manage current situational factors. Patient has for an extended period of time had great deal of difficulty with any emotional a mental coping strategies. Will and lorazepam p.r.n. 0.5 mg to help with anxiety trying get clarity from DTS regarding transition to prison setting positive reinforcement for patient's efforts at physical conditioning becomes demoralized easily denies active self-harm Reason for contiued inpatient stay Substantial Risk for: harm to self, inability to function and rapid decompensation Time Spent With Patient Time: Total time managing care of this patient today ____ minutes.
[2022-11-06] MEDS: LORazepam 0.5 MG TABLET PO ×2 (15:38→21:20)
[2022-11-06] MEDS: polyethylene glycoL 3350 17 GM POWD.PACK PO (16:48)
[2022-11-06 18:00] VITALS: BP 148/80; PULSE 64; RESP 16; TEMP 36.3; O2SAT 98
[2022-11-06] MEDS: Nystatin Powder 15 GM BOTTLE 1 APPL TOPICAL (21:19)
[2022-11-06] MEDS: Lidocaine 5 % Ointment 35 GM 1 APPL TOPICAL (21:19)
[2022-11-06] MEDS: Latanoprost 0.005 % Ophth Sol 2.5 ML DROPS 1 DROP EYE-BOTH (21:19)
[2022-11-06] MEDS: Mineral Oil/Petrolatum,White 106 GM Tube 1 APPL TOPICAL (21:19)
[2022-11-06] MEDS: traZODone HCL 100 MG TABLET 200 MG PO (21:20)
[2022-11-06] MEDS: QUEtiapine Fumarate 50 MG TABLET 150 MG PO (21:20)
[2022-11-06] MEDS: Nortriptyline HCl 25 MG CAPSULE 100 MG PO (21:20)
[2022-11-06] MEDS: Melatonin 3 MG TABLET 9 MG PO (21:22)
[2022-11-07] MEDS: traZODone HCL 50 MG TABLET PO (01:05)
[2022-11-07] MEDS: LORazepam 0.5 MG TABLET PO ×3 (01:06→20:11)
[2022-11-07] MEDS: hydrOXYzine HCL 25 MG TABLET PO (01:06)
[2022-11-07 07:30] VITALS: BP 125/70; PULSE 71; RESP 17; TEMP 36.3; O2SAT 95
[2022-11-07] MEDS: Multivitamin TABLET 1 TAB PO (09:39)
[2022-11-07] MEDS: Escitalopram Oxalate 5 MG TABLET 15 MG PO (09:40)
[2022-11-07] MEDS: lamoTRIgine 100 MG TABLET 200 MG PO ×2 (09:40→20:07)
[2022-11-07] MEDS: amLODIPine Besylate 5 MG TABLET PO (09:40)
[2022-11-07] MEDS: Naltrexone HCl 50 MG TABLET PO (09:40)
[2022-11-07] MEDS: Gabapentin 300 MG CAPSULE 600 MG PO ×3 (09:40→20:08)
[2022-11-07] MEDS: calcium polycarbophiL TABLET 1 TAB PO (09:41)
[2022-11-07] MEDS: Tamsulosin HCL 0.4 MG CAPSULE PO (09:41)
[2022-11-07] MEDS: Pramipexole Di-HCL 0.25 MG TABLET PO ×3 (09:41→20:09)
[2022-11-07] MEDS: Omeprazole 20 MG CAPSULE.DR PO ×2 (09:41→16:52)
[2022-11-07] MEDS: QUEtiapine Fumarate 50 MG TABLET PO ×2 (09:41→16:52)
[2022-11-07] MEDS: lisinopriL 20 MG TABLET PO (09:42)
[2022-11-07] MEDS: Cholecalciferol (Vitamin D3) 10 MCG TABLET PO (09:42)
[2022-11-07] MEDS: Finasteride 5 MG TABLET PO (09:42)
--- NOTE | 2022-11-07 13:01 | HO.PSYCHPN ---
Subjective Subjective Date of Service: 11/07/22 Reason For Visit: Depression aggression Interim History: Pt initially reporting more anxiety and depression. As conversation went by, pt reports he enjoys getting to know others on the unit, although understands that some of his peers have memory deficits. He reports sleep is fair. He is appreciate of Dr. Haskins's care over the years. He reports he enjoys watching his favorite shows on the unit. He reports passive SI but no plan or intent. Medication Compliance: Yes Review of Systems Review of Systems Yes Unobtainable due to mental condition Mental Status Exam Mental Status Exam Narrative: Sad looking Patient Appearance: Disheveled and Perspiring Patient Orientation: Person, Place, Time and Situation Level of Consciousness: Awake and Alert Patient Behavior: Guarded, Anxious, Fatigued and Isolative Mood Description: Constricted, Depressed, Anxious, Labile and Apprehensive Affect Description: Constricted, Angry and Apprehensive Patient Cognition Impaired: Yes Ability to Follow Directions: Fair Speech Pattern: Spontaneous Speech Memory Description: Episodic Impaired Diagnostics Vital Signs (24Hr): Vital Signs - 24 hr 11/06/22 18:00 11/07/22 07:30 Temperature 97.4 F 97.4 F Pulse Rate 64 71 Respiratory Rate 16 17 Blood Pressure 148/80 H 125/70 Pulse Oximetry 98 95 Oxygen Delivery Method Room Air Room Air BMI result Body Mass Index 31.7 Labs Results: 10/20/22 14:26 10/03/22 19:19 Imaging Radiology Impressions: ITS Impressions Chest X-Ray 10/20/22 15:45 IMPRESSION: 1. Low lung volumes with bibasilar linear disc atelectasis versus scarring. 2. No airspace consolidation or effusion. Medications Medications Current Medications Acetaminophen (Acetaminophen 325 Mg Tablet) 650 mg PO Q6H PRN PRN Reason: Headache/Pain Mild Scale (1-3) Last Admin: 11/07/22 16:51 Dose: 650 mg Al Hydroxide/Mg Hydroxide (Magnesium Hydrox/Alum Hydrox 30 Ml Oral.Susp) 30 ml PO Q6H PRN PRN Reason: Heartburn/Nausea Last Admin: 10/19/22 18:47 Dose: 30 ml Albuterol Sulfate (Albuterol Sulfate 90 Mcg 8 Gm Inhaler) 2 puff INHALE Q6H PRN PRN Reason: Wheezing Amlodipine Besylate (Amlodipine Besylate 5 Mg Tablet) 5 mg PO DAILY [facility]; Protocol Last Admin: 11/07/22 09:40 Dose: 5 mg Benzocaine (Throat Lozenge, Medicated Lozenge) 1 lozenge MUCOUS MEM Q2H PRN PRN Reason: Sore Throat Last Admin: 10/06/22 18:51 Dose: 1 lozenge Calcium Polycarbophil (Calcium Polycarbophil Tablet) 1 tab PO DAILY [facility] Last Admin: 11/07/22 09:41 Dose: 1 tab Docusate Sodium (Docusate Sodium 100 Mg Capsule) 100 mg PO DAILY PRN PRN Reason: constipation Last Admin: 10/30/22 22:09 Dose: 100 mg Escitalopram Oxalate (Escitalopram Oxalate 5 Mg Tablet) 15 mg PO DAILY [facility] Last Admin: 11/07/22 09:40 Dose: 15 mg Finasteride (Finasteride 5 Mg Tablet) 5 mg PO DAILY [facility] Last Admin: 11/07/22 09:42 Dose: 5 mg Gabapentin (Gabapentin 300 Mg Capsule) 600 mg PO TID [facility] Last Admin: 11/07/22 16:16 Dose: 600 mg Hydroxyzine HCl (Hydroxyzine Hcl 25 Mg Tablet) 25 mg PO Q6H PRN PRN Reason: Anxiety Last Admin: 11/07/22 01:06 Dose: 25 mg Lamotrigine (Lamotrigine 100 Mg Tablet) 200 mg PO BID [facility] Last Admin: 11/07/22 09:40 Dose: 200 mg Latanoprost (Latanoprost 0.005 % Ophth No 2.5 Ml Drops) 1 drop EYE-BOTH BEDTIME [facility] Last Admin: 11/06/22 21:19 Dose: 1 drop Lidocaine (Lidocaine 5 % Ointment 35 Gm) 1 appl TOPICAL QID [facility] Last Admin: 11/07/22 13:41 Dose: Not Given Lisinopril (Lisinopril 20 Mg Tablet) 20 mg PO DAILY [facility]; Protocol Last Admin: 11/07/22 09:42 Dose: 20 mg Lorazepam (Lorazepam 0.5 Mg Tablet) 0.5 mg PO Q8H PRN PRN Reason: Anxiety Last Admin: 11/07/22 09:49 Dose: 0.5 mg Lorazepam (Lorazepam 0.5 Mg Tablet) 0.5 mg PO BEDTIME [facility] Last Admin: 11/06/22 21:20 Dose: 0.5 mg Magnesium Hydroxide (Milk Of Magnesia 30 Ml Oral.Susp) 30 ml PO DAILY PRN PRN Reason: Constipation Last Admin: 10/21/22 22:46 Dose: 30 ml Melatonin (Melatonin 3 Mg Tablet) 9 mg PO BEDTIME [facility] Last Admin: 11/06/22 21:22 Dose: 9 mg Multi-Ingred Cream/Lotion/Oil/Oint (Mineral Oil/Petrolatum,White 106 Gm Tube) 1 appl TOPICAL BID [facility]; Protocol Last Admin: 11/07/22 09:58 Dose: Not Given Multivitamins/Vitamin C (Multivitamin Tablet) 1 tab PO DAILY [facility] Last Admin: 11/07/22 09:39 Dose: 1 tab Naltrexone HCl (Naltrexone Hcl 50 Mg Tablet) 50 mg PO DAILY [facility] Last Admin: 11/07/22 09:40 Dose: 50 mg Nortriptyline HCl (Nortriptyline Hcl 25 Mg Capsule) 100 mg PO BEDTIME [facility] Last Admin: 11/06/22 21:20 Dose: 100 mg Nystatin (Nystatin Powder 15 Gm Bottle) 1 appl TOPICAL BID [facility] Last Admin: 11/07/22 09:58 Dose: Not Given Omeprazole (Omeprazole 20 Mg Capsule.Dr) 20 mg PO BID@0630,1630 [facility] Last Admin: 11/07/22 16:52 Dose: 20 mg Oxybutynin Chloride (Oxybutynin Chloride Er 5 Mg Tab.Er.24) 10 mg PO DAILY [facility] Last Admin: 11/07/22 09:41 Dose: 10 mg Polyethylene Glycol (Polyethylene Glycol 3350 17 Gm Powd.Pack) 17 gm PO DAILY@1600 [facility] Last Admin: 11/07/22 16:51 Dose: 17 gm Pramipexole Dihydrochloride (Pramipexole Di-Hcl 0.25 Mg Tablet) 0.25 mg PO TID [facility] Last Admin: 11/07/22 16:16 Dose: 0.25 mg Psyllium Hydrophilic Mucilloid (Psyllium Seed 3.4 Gm Powd.Pack) 3.4 gm PO DAILY [facility] Last Admin: 11/07/22 09:38 Dose: 3.4 gm Quetiapine Fumarate (Quetiapine Fumarate 25 Mg Tablet) 25 mg PO Q4H PRN PRN Reason: Anxiety Last Admin: 11/01/22 14:40 Dose: 25 mg Quetiapine Fumarate (Quetiapine Fumarate 50 Mg Tablet) 50 mg PO BID@0900,1700 [facility] Last Admin: 11/07/22 16:52 Dose: 50 mg Quetiapine Fumarate (Quetiapine Fumarate 50 Mg Tablet) 150 mg PO BEDTIME [facility] Last Admin: 11/06/22 21:20 Dose: 150 mg Tamsulosin HCl (Tamsulosin Hcl 0.4 Mg Capsule) 0.4 mg PO DAILY [facility] Last Admin: 11/07/22 09:41 Dose: 0.4 mg Trazodone HCl (Trazodone Hcl 100 Mg Tablet) 200 mg PO BEDTIME [facility] Last Admin: 11/06/22 21:20 Dose: 200 mg Trazodone HCl (Trazodone Hcl 50 Mg Tablet) 50 mg PO BEDTIME PRN PRN Reason: Insomnia Last Admin: 11/07/22 01:05 Dose: 50 mg Vitamin D (Cholecalciferol (Vitamin D3) 10 Mcg Tablet) 10 mcg PO DAILY [facility] Last Admin: 11/07/22 09:42 Dose: 10 mcg Allergies Allergies Allergy/AdvReac Type Severity Reaction Status Date / Time fentanyl [FENTANYL] Allergy Intermediate unknown Verified 04/08/22 07:00 Assessment & Plan Assessment & Plan (1) Major depressive disorder, recurrent severe without psychotic features: Status: Acute Code(s): F33.2 - Major depressive disorder, recurrent severe without psychotic features (2) Dermatitis, unspecified: Status: Acute Code(s): L30.9 - Dermatitis, unspecified (3) Alcohol use disorder, severe, dependence: Status: Acute Code(s): F10.20 - Alcohol dependence, uncomplicated Plan The patient is a 67-year-old male, , on his psi after TBI with a long history of depression with suicidal ideation with several prior admissions into this facility with a similar presentation. At this moment also, he has problems of housing since he will not be able to go back to his regular correction. The patient has a long history of alcohol use disorder that he was not able to process or work on it. Plan 1. Continue with the same treatment. 2. We will work with the social services specialist and DDS for a proper discharge planning. 3. Continue with recommendations of Wound Care. 4. Increase Seroquel up to 150 mg po qhs. 10/30/22 restart lorazepam 1 hs prn insomnia norterip inc 100 hs level in 50 s monitor ekg 11/01 continue current tx plan 11/02/22- Bedside Swallow eval. s/p choking episode on 11/01. 2021 Increase Lexapro encourage CBT skills need supportive coaching patient increasingly hopeless helpless denies active self-harm check nortriptyline level 11/05/2022 Check nortriptyline level patient on Seroquel nortriptyline Lexapro. Needs much reassurance and support the has difficulty interacting at times secondary to a hopelessness irritability passive SI. Patient has having difficulty maintaining his posture in his chair unclear why this is happening for discuss safety issues with nursing will need OT and potentially Pt input 11/06/2022 Patient depressed and anxious tried to review cognitive behavioral perspectives ways to emotionally manage current situational factors. Patient has for an extended period of time had great deal of difficulty with any emotional a mental coping strategies. Will and lorazepam p.r.n. 0.5 mg to help with anxiety trying get clarity from DTS regarding transition to correction setting positive reinforcement for patient's efforts at physical conditioning becomes demoralized easily denies active self-harm 11/07 continue tx. Reason for contiued inpatient stay Substantial Risk for: inability to function Time Spent With Patient Time: Total time managing care of this patient today ____ minutes.
[2022-11-07] MEDS: Acetaminophen 325 MG TABLET 650 MG PO (16:51)
[2022-11-07] MEDS: polyethylene glycoL 3350 17 GM POWD.PACK PO (16:51)
[2022-11-07 18:00] VITALS: BP 90/50; PULSE 70; RESP 18; TEMP 36.6; O2SAT 91
[2022-11-07 19:30] VITALS: BP 100/50; PULSE 70; RESP 18; O2SAT 91
[2022-11-07] MEDS: QUEtiapine Fumarate 50 MG TABLET 150 MG PO (20:07)
[2022-11-07] MEDS: Nortriptyline HCl 25 MG CAPSULE 100 MG PO (20:07)
[2022-11-07] MEDS: Melatonin 3 MG TABLET 9 MG PO (20:08)
[2022-11-07] MEDS: traZODone HCL 100 MG TABLET 200 MG PO (20:09)
[2022-11-07] MEDS: Nystatin Powder 15 GM BOTTLE 1 APPL TOPICAL (20:11)
[2022-11-07] MEDS: Lidocaine 5 % Ointment 35 GM 1 APPL TOPICAL (20:11)
[2022-11-07] MEDS: Mineral Oil/Petrolatum,White 106 GM Tube 1 APPL TOPICAL (20:11)
[2022-11-07] MEDS: Latanoprost 0.005 % Ophth Sol 2.5 ML DROPS 1 DROP EYE-BOTH (20:12)
[2022-11-08] VITALS (7 sets, daily range): BP systolic 116–134; BP diastolic 54–72; PULSE 63–67; RESP 15–20; TEMP 36.4; O2SAT 92–98
[2022-11-08] MEDS: traZODone HCL 50 MG TABLET PO (01:12)
[2022-11-08] MEDS: hydrOXYzine HCL 25 MG TABLET PO (01:12)
[2022-11-08] MEDS: Omeprazole 20 MG CAPSULE.DR PO ×2 (05:44→17:14)
[2022-11-08] MEDS: Naltrexone HCl 50 MG TABLET PO (08:48)
[2022-11-08] MEDS: amLODIPine Besylate 5 MG TABLET PO (08:48)
[2022-11-08] MEDS: Tamsulosin HCL 0.4 MG CAPSULE PO (08:48)
[2022-11-08] MEDS: Multivitamin TABLET 1 TAB PO (08:48)
[2022-11-08] MEDS: QUEtiapine Fumarate 50 MG TABLET PO ×2 (08:49→17:15)
[2022-11-08] MEDS: Escitalopram Oxalate 5 MG TABLET 15 MG PO (08:49)
[2022-11-08] MEDS: calcium polycarbophiL TABLET 1 TAB PO (08:50)
[2022-11-08] MEDS: Cholecalciferol (Vitamin D3) 10 MCG TABLET PO (08:50)
[2022-11-08] MEDS: lamoTRIgine 100 MG TABLET 200 MG PO ×2 (08:50→21:24)
[2022-11-08] MEDS: Finasteride 5 MG TABLET PO (08:50)
[2022-11-08] MEDS: Gabapentin 300 MG CAPSULE 600 MG PO ×3 (08:50→21:24)
[2022-11-08] MEDS: Pramipexole Di-HCL 0.25 MG TABLET PO ×3 (08:50→21:23)
[2022-11-08] MEDS: lisinopriL 20 MG TABLET PO (08:50)
[2022-11-08] MEDS: Mineral Oil/Petrolatum,White 106 GM Tube 1 APPL TOPICAL (10:05)
[2022-11-08] MEDS: Lidocaine 5 % Ointment 35 GM 1 APPL TOPICAL ×2 (10:05→21:56)
[2022-11-08] MEDS: Nystatin Powder 15 GM BOTTLE 1 APPL TOPICAL ×2 (10:05→21:25)
[2022-11-08] MEDS: Acetaminophen 325 MG TABLET 650 MG PO ×2 (12:02→21:47)
--- NOTE | 2022-11-08 12:56 | PC.NURSE ---
Patient was found on the floor at 1100 on this date. He states that he was reaching while in w/c, to push the call dwyer that is located on the side railing of the bed, when he lost balance and fell out of the chair. Pt. was found on his left side, and states that he hit the left side of his head. He had a very, very small laceration , on the left cheek. This was cleaned and left open to air per recommendation of MICHELE Arevalo-very superficial. banquet server on call Mirian BAUTISTA came to the unit and assessed this patient. She stated that he should restrict his screen time to 1 hour/day. She also recommended that this patient not do any heavy reading at this point. Pt. was brought down to the ED for a CT scan of the head and then brought back to the unit. He was off the unit from [id number]. Patient had VS and neuro checks resumed at this time. Currently awaiting reading of CT scan. Pt. confused about location-thinks he is still in ED when he is back on the unit. At first, pt.'s speech was slightly slurred-that has resolved now. C/o DORAN, 05/25, Tylenol provided. DORAN has resolved to a 01/23. Please see VS checks and neuro checks for details. MICHELE Lofton states that the pupils may be constricted d/t cataracts.
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
[2022-11-08] MEDS: polyethylene glycoL 3350 17 GM POWD.PACK PO (15:47)
--- NOTE | 2022-11-08 16:13 | HO.PSYCHPN ---
Subjective Subjective Date of Service: 11/08/22 Reason For Visit: Depression aggression Interim History: Discussed with team. Pt had an unwitnessed fall, hit his head, head CT unremarkable, seen by hospitalist and on neuro checks for 24 hours, vitals stable. Spoke with pt, says he fell trying to reach the call dwyer, cracked my head on the floor, no laceration, says he managed to get up with the christos lift. Pt discussed his brother dying of Alzheimer's on Thursday, sade been dealing with that, he was my best friend, it hurts. Says I dont know how to make that better, cries at night. Rates his anxiety and depression as 10/10. Mental Status Exam Mental Status Exam Narrative: Sad looking Patient Appearance: Disheveled and Perspiring Patient Orientation: Person, Place, Time and Situation Level of Consciousness: Awake and Alert Patient Behavior: Guarded, Anxious, Fatigued and Isolative Mood Description: Constricted, Depressed, Anxious, Labile and Apprehensive Affect Description: Constricted, Angry and Apprehensive Patient Cognition Impaired: Yes Ability to Follow Directions: Fair Speech Pattern: Spontaneous Speech Memory Description: Episodic Impaired Diagnostics Vital Signs (24Hr): Vital Signs - 24 hr 11/07/22 18:00 11/07/22 19:30 11/08/22 11:05 Temperature 97.9 F Pulse Rate 70 70 67 Respiratory Rate 18 18 16 Blood Pressure 90/50 L 100/50 L 133/64 Pulse Oximetry 91 L 91 L 96 Oxygen Delivery Method Room Air Room Air Room Air 11/08/22 11:20 11/08/22 11:35 11/08/22 12:00 Temperature Pulse Rate 65 64 64 Respiratory Rate 15 15 16 Blood Pressure 120/60 116/54 L 129/64 Pulse Oximetry 97 98 97 Oxygen Delivery Method Room Air Room Air Room Air 11/08/22 12:40 11/08/22 13:10 Temperature Pulse Rate 64 64 Respiratory Rate 16 15 Blood Pressure 134/72 117/58 L Pulse Oximetry 97 92 Oxygen Delivery Method Room Air Room Air BMI result Body Mass Index 31.7 Labs Results: 10/20/22 14:26 10/03/22 19:19 Imaging Radiology Impressions: ITS Impressions Chest X-Ray 10/20/22 15:45 IMPRESSION: 1. Low lung volumes with bibasilar linear disc atelectasis versus scarring. 2. No airspace consolidation or effusion. Head CT 11/08/22 12:29 IMPRESSION: No acute intracranial hemorrhage or territorial infarction. Stable chronic postoperative changes with gliosis and encephalomalacia in the right frontal and right temporal lobes. Ex vacuo dilatation of the ventricles and diffuse parenchymal volume loss. Right-sided craniotomy changes. Medications Medications Current Medications Acetaminophen (Acetaminophen 325 Mg Tablet) 650 mg PO Q6H PRN PRN Reason: Headache/Pain Mild Scale (1-3) Last Admin: 11/08/22 12:02 Dose: 650 mg Al Hydroxide/Mg Hydroxide (Magnesium Hydrox/Alum Hydrox 30 Ml Oral.Susp) 30 ml PO Q6H PRN PRN Reason: Heartburn/Nausea Last Admin: 10/19/22 18:47 Dose: 30 ml Albuterol Sulfate (Albuterol Sulfate 90 Mcg 8 Gm Inhaler) 2 puff INHALE Q6H PRN PRN Reason: Wheezing Amlodipine Besylate (Amlodipine Besylate 5 Mg Tablet) 5 mg PO DAILY [facility]; Protocol Last Admin: 11/08/22 08:48 Dose: 5 mg Benzocaine (Throat Lozenge, Medicated Lozenge) 1 lozenge MUCOUS MEM Q2H PRN PRN Reason: Sore Throat Last Admin: 10/06/22 18:51 Dose: 1 lozenge Calcium Polycarbophil (Calcium Polycarbophil Tablet) 1 tab PO DAILY [facility] Last Admin: 11/08/22 08:50 Dose: 1 tab Docusate Sodium (Docusate Sodium 100 Mg Capsule) 100 mg PO DAILY PRN PRN Reason: constipation Last Admin: 10/30/22 22:09 Dose: 100 mg Escitalopram Oxalate (Escitalopram Oxalate 5 Mg Tablet) 15 mg PO DAILY [facility] Last Admin: 11/08/22 08:49 Dose: 15 mg Finasteride (Finasteride 5 Mg Tablet) 5 mg PO DAILY [facility] Last Admin: 11/08/22 08:50 Dose: 5 mg Gabapentin (Gabapentin 300 Mg Capsule) 600 mg PO TID [facility] Last Admin: 11/08/22 15:49 Dose: 600 mg Hydroxyzine HCl (Hydroxyzine Hcl 25 Mg Tablet) 25 mg PO Q6H PRN PRN Reason: Anxiety Last Admin: 11/08/22 01:12 Dose: 25 mg Lamotrigine (Lamotrigine 100 Mg Tablet) 200 mg PO BID [facility] Last Admin: 11/08/22 08:50 Dose: 200 mg Latanoprost (Latanoprost 0.005 % Ophth No 2.5 Ml Drops) 1 drop EYE-BOTH BEDTIME [facility] Last Admin: 11/07/22 20:12 Dose: 1 drop Lidocaine (Lidocaine 5 % Ointment 35 Gm) 1 appl TOPICAL QID [facility] Last Admin: 11/08/22 15:50 Dose: Not Given Lisinopril (Lisinopril 20 Mg Tablet) 20 mg PO DAILY [facility]; Protocol Last Admin: 11/08/22 08:50 Dose: 20 mg Lorazepam (Lorazepam 0.5 Mg Tablet) 0.5 mg PO Q8H PRN PRN Reason: Anxiety Last Admin: 11/07/22 09:49 Dose: 0.5 mg Lorazepam (Lorazepam 0.5 Mg Tablet) 0.5 mg PO BEDTIME [facility] Last Admin: 11/07/22 20:11 Dose: 0.5 mg Magnesium Hydroxide (Milk Of Magnesia 30 Ml Oral.Susp) 30 ml PO DAILY PRN PRN Reason: Constipation Last Admin: 10/21/22 22:46 Dose: 30 ml Melatonin (Melatonin 3 Mg Tablet) 9 mg PO BEDTIME [facility] Last Admin: 11/07/22 20:08 Dose: 9 mg Multi-Ingred Cream/Lotion/Oil/Oint (Mineral Oil/Petrolatum,White 106 Gm Tube) 1 appl TOPICAL BID [facility]; Protocol Last Admin: 11/08/22 10:05 Dose: 1 appl Multivitamins/Vitamin C (Multivitamin Tablet) 1 tab PO DAILY [facility] Last Admin: 11/08/22 08:48 Dose: 1 tab Naltrexone HCl (Naltrexone Hcl 50 Mg Tablet) 50 mg PO DAILY [facility] Last Admin: 11/08/22 08:48 Dose: 50 mg Nortriptyline HCl (Nortriptyline Hcl 25 Mg Capsule) 100 mg PO BEDTIME [facility] Last Admin: 11/07/22 20:07 Dose: 100 mg Nystatin (Nystatin Powder 15 Gm Bottle) 1 appl TOPICAL BID [facility] Last Admin: 11/08/22 10:05 Dose: 1 appl Omeprazole (Omeprazole 20 Mg Capsule.Dr) 20 mg PO BID@0630,1630 [facility] Last Admin: 11/08/22 05:44 Dose: 20 mg Ondansetron HCl (Ondansetron Odt 4 Mg Tab.Rapdis) 4 mg TRANSLINGU Q6H PRN PRN Reason: Nausea and Vomiting Oxybutynin Chloride (Oxybutynin Chloride Er 5 Mg Tab.Er.24) 10 mg PO DAILY [facility] Last Admin: 11/08/22 08:49 Dose: 10 mg Polyethylene Glycol (Polyethylene Glycol 3350 17 Gm Powd.Pack) 17 gm PO DAILY@1600 [facility] Last Admin: 11/08/22 15:47 Dose: 17 gm Pramipexole Dihydrochloride (Pramipexole Di-Hcl 0.25 Mg Tablet) 0.25 mg PO TID [facility] Last Admin: 11/08/22 15:50 Dose: 0.25 mg Psyllium Hydrophilic Mucilloid (Psyllium Seed 3.4 Gm Powd.Pack) 3.4 gm PO DAILY [facility] Last Admin: 11/08/22 08:47 Dose: 3.4 gm Quetiapine Fumarate (Quetiapine Fumarate 25 Mg Tablet) 25 mg PO Q4H PRN PRN Reason: Anxiety Last Admin: 11/01/22 14:40 Dose: 25 mg Quetiapine Fumarate (Quetiapine Fumarate 50 Mg Tablet) 50 mg PO BID@0900,1700 [facility] Last Admin: 11/08/22 08:49 Dose: 50 mg Quetiapine Fumarate (Quetiapine Fumarate 50 Mg Tablet) 150 mg PO BEDTIME [facility] Last Admin: 11/07/22 20:07 Dose: 150 mg Tamsulosin HCl (Tamsulosin Hcl 0.4 Mg Capsule) 0.4 mg PO DAILY [facility] Last Admin: 11/08/22 08:48 Dose: 0.4 mg Trazodone HCl (Trazodone Hcl 100 Mg Tablet) 200 mg PO BEDTIME [facility] Last Admin: 11/07/22 20:09 Dose: 200 mg Trazodone HCl (Trazodone Hcl 50 Mg Tablet) 50 mg PO BEDTIME PRN PRN Reason: Insomnia Last Admin: 11/08/22 01:12 Dose: 50 mg Vitamin D (Cholecalciferol (Vitamin D3) 10 Mcg Tablet) 10 mcg PO DAILY [facility] Last Admin: 11/08/22 08:50 Dose: 10 mcg Allergies Allergies Allergy/AdvReac Type Severity Reaction Status Date / Time fentanyl [FENTANYL] Allergy Intermediate unknown Verified 04/08/22 07:00 Assessment & Plan Assessment & Plan (1) Acute head injury without loss of consciousness: Status: Acute Code(s): S09.90XA - Unspecified injury of head, initial encounter Plan The patient is a 67-year-old male, , 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 At this moment also, he has problems of housing since he will not be able to go back to his regular halfway.? The patient has a long history of alcohol use disorder that he was not able to process or work on it.? Plan 1. Continue with the same treatment.? 2. We will work with the executive secretary social welfare and DDS for a proper discharge planning.? 3. Continue with recommendations of Wound Care. 4. Increase Seroquel up to 150 mg po qhs. 10/30/22 restart lorazepam 1 hs prn insomnia norterip inc 100 hs level in 50 s monitor ekg 11/01 continue current tx plan 11/02/22- Bedside Swallow eval. s/p choking episode on 11/01. 2021 Increase Lexapro encourage CBT skills need supportive coaching patient increasingly hopeless helpless denies active self-harm check nortriptyline level 11/05/2022 Check nortriptyline level patient on Seroquel nortriptyline Lexapro.? Needs much reassurance and support the has difficulty interacting at times secondary to a hopelessness irritability passive SI.? Patient has having difficulty maintaining his posture in his chair unclear why this is happening for discuss safety issues with nursing will need OT and potentially Pt input? 11/06/2022 Patient depressed and anxious tried to review cognitive behavioral perspectives ways to emotionally manage current situational factors.? Patient has for an extended period of time had great deal of difficulty with any emotional a mental coping strategies.? Will and lorazepam p.r.n. 0.5 mg to help with anxiety trying get clarity from DTS regarding transition to halfway setting positive reinforcement for patient's efforts at physical conditioning becomes demoralized easily denies active self-harm 11/07 continue tx. 11/08 no changes Patient educated on: therapeutic strategies Reason for contiued inpatient stay Substantial Risk for: harm to self, inability to function, rapid decompensation and med/psych decompensation Time Spent With Patient Time: Total time managing care of this patient today ____ minutes.
[2022-11-08] MEDS: QUEtiapine Fumarate 50 MG TABLET 150 MG PO (21:22)
[2022-11-08] MEDS: Nortriptyline HCl 25 MG CAPSULE 100 MG PO (21:22)
[2022-11-08] MEDS: LORazepam 0.5 MG TABLET PO (21:22)
[2022-11-08] MEDS: traZODone HCL 100 MG TABLET 200 MG PO (21:23)
[2022-11-08] MEDS: Melatonin 3 MG TABLET 9 MG PO (21:23)
[2022-11-08] MEDS: Latanoprost 0.005 % Ophth Sol 2.5 ML DROPS 1 DROP EYE-BOTH (21:24)
[2022-11-08] MEDS: Docusate Sodium 100 MG CAPSULE PO (21:48)
[2022-11-09 06:00] VITALS: BP 124/65; PULSE 88; RESP 16; TEMP 36.2; O2SAT 97
[2022-11-09] MEDS: Finasteride 5 MG TABLET PO (09:02)
[2022-11-09] MEDS: Escitalopram Oxalate 5 MG TABLET 15 MG PO (09:02)
[2022-11-09] MEDS: QUEtiapine Fumarate 50 MG TABLET PO ×2 (09:05→16:46)
[2022-11-09] MEDS: Pramipexole Di-HCL 0.25 MG TABLET PO ×3 (09:05→20:32)
[2022-11-09] MEDS: calcium polycarbophiL TABLET 1 TAB PO (09:05)
[2022-11-09] MEDS: amLODIPine Besylate 5 MG TABLET PO (09:05)
[2022-11-09] MEDS: Cholecalciferol (Vitamin D3) 10 MCG TABLET PO (09:06)
[2022-11-09] MEDS: lamoTRIgine 100 MG TABLET 200 MG PO ×2 (09:06→20:31)
[2022-11-09] MEDS: Gabapentin 300 MG CAPSULE 600 MG PO ×3 (09:08→20:32)
[2022-11-09] MEDS: Multivitamin TABLET 1 TAB PO (09:08)
[2022-11-09] MEDS: Naltrexone HCl 50 MG TABLET PO (09:09)
[2022-11-09] MEDS: lisinopriL 20 MG TABLET PO (09:09)
[2022-11-09] MEDS: Tamsulosin HCL 0.4 MG CAPSULE PO (09:11)
[2022-11-09] MEDS: LORazepam 0.5 MG TABLET PO ×2 (09:20→20:31)
[2022-11-09] MEDS: Acetaminophen 325 MG TABLET 650 MG PO (09:20)
--- NOTE | 2022-11-09 13:28 | HO.PSYCHPN ---
Subjective Subjective Date of Service: 11/09/22 Reason For Visit: Depression aggression Interim History: Discussed with team. Spoke with pt, he c/o a deep throated rattling cough, going on for 6 weeks, reviewed chest xray. Discussed using the albuterol inhaler PRN, says he didn't know it was available. Mood is I dont feel that great today. Mental Status Exam Mental Status Exam Narrative: Sad looking Patient Appearance: Disheveled and Perspiring Patient Orientation: Person, Place, Time and Situation Level of Consciousness: Awake and Alert Patient Behavior: Guarded, Anxious, Fatigued and Isolative Mood Description: Constricted, Depressed, Anxious, Labile and Apprehensive Affect Description: Constricted, Angry and Apprehensive Patient Cognition Impaired: Yes Ability to Follow Directions: Fair Speech Pattern: Spontaneous Speech Memory Description: Episodic Impaired Diagnostics Vital Signs (24Hr): Vital Signs - 24 hr 11/08/22 18:00 11/09/22 06:00 Temperature 97.5 F 97.2 F Pulse Rate 63 88 Respiratory Rate 20 16 Blood Pressure 132/65 124/65 Pulse Oximetry 96 97 Oxygen Delivery Method Room Air Room Air BMI result Body Mass Index 31.7 Labs Results: 10/20/22 14:26 10/03/22 19:19 Imaging Radiology Impressions: ITS Impressions Chest X-Ray 10/20/22 15:45 IMPRESSION: 1. Low lung volumes with bibasilar linear disc atelectasis versus scarring. 2. No airspace consolidation or effusion. Head CT 11/08/22 12:29 IMPRESSION: No acute intracranial hemorrhage or territorial infarction. Stable chronic postoperative changes with gliosis and encephalomalacia in the right frontal and right temporal lobes. Ex vacuo dilatation of the ventricles and diffuse parenchymal volume loss. Right-sided craniotomy changes. Medications Medications Current Medications Acetaminophen (Acetaminophen 325 Mg Tablet) 650 mg PO Q6H PRN PRN Reason: Headache/Pain Mild Scale (1-3) Last Admin: 11/09/22 09:20 Dose: 650 mg Al Hydroxide/Mg Hydroxide (Magnesium Hydrox/Alum Hydrox 30 Ml Oral.Susp) 30 ml PO Q6H PRN PRN Reason: Heartburn/Nausea Last Admin: 10/19/22 18:47 Dose: 30 ml Albuterol Sulfate (Albuterol Sulfate 90 Mcg 8 Gm Inhaler) 2 puff INHALE Q6H PRN PRN Reason: Wheezing Amlodipine Besylate (Amlodipine Besylate 5 Mg Tablet) 5 mg PO DAILY [facility]; Protocol Last Admin: 11/09/22 09:05 Dose: 5 mg Benzocaine (Throat Lozenge, Medicated Lozenge) 1 lozenge MUCOUS MEM Q2H PRN PRN Reason: Sore Throat Last Admin: 10/06/22 18:51 Dose: 1 lozenge Calcium Polycarbophil (Calcium Polycarbophil Tablet) 1 tab PO DAILY [facility] Last Admin: 11/09/22 09:05 Dose: 1 tab Docusate Sodium (Docusate Sodium 100 Mg Capsule) 100 mg PO DAILY PRN PRN Reason: constipation Last Admin: 11/08/22 21:48 Dose: 100 mg Escitalopram Oxalate (Escitalopram Oxalate 5 Mg Tablet) 15 mg PO DAILY [facility] Last Admin: 11/09/22 09:02 Dose: 15 mg Finasteride (Finasteride 5 Mg Tablet) 5 mg PO DAILY [facility] Last Admin: 11/09/22 09:02 Dose: 5 mg Gabapentin (Gabapentin 300 Mg Capsule) 600 mg PO TID [facility] Last Admin: 11/09/22 09:08 Dose: 600 mg Hydroxyzine HCl (Hydroxyzine Hcl 25 Mg Tablet) 25 mg PO Q6H PRN PRN Reason: Anxiety Last Admin: 11/08/22 01:12 Dose: 25 mg Lamotrigine (Lamotrigine 100 Mg Tablet) 200 mg PO BID [facility] Last Admin: 11/09/22 09:06 Dose: 200 mg Latanoprost (Latanoprost 0.005 % Ophth No 2.5 Ml Drops) 1 drop EYE-BOTH BEDTIME [facility] Last Admin: 11/08/22 21:24 Dose: 1 drop Lidocaine (Lidocaine 5 % Ointment 35 Gm) 1 appl TOPICAL QID [facility] Last Admin: 11/09/22 07:44 Dose: Not Given Lisinopril (Lisinopril 20 Mg Tablet) 20 mg PO DAILY [facility]; Protocol Last Admin: 11/09/22 09:09 Dose: 20 mg Lorazepam (Lorazepam 0.5 Mg Tablet) 0.5 mg PO Q8H PRN PRN Reason: Anxiety Last Admin: 11/09/22 09:20 Dose: 0.5 mg Lorazepam (Lorazepam 0.5 Mg Tablet) 0.5 mg PO BEDTIME [facility] Last Admin: 11/08/22 21:22 Dose: 0.5 mg Magnesium Hydroxide (Milk Of Magnesia 30 Ml Oral.Susp) 30 ml PO DAILY PRN PRN Reason: Constipation Last Admin: 10/21/22 22:46 Dose: 30 ml Melatonin (Melatonin 3 Mg Tablet) 9 mg PO BEDTIME [facility] Last Admin: 11/08/22 21:23 Dose: 9 mg Multi-Ingred Cream/Lotion/Oil/Oint (Mineral Oil/Petrolatum,White 106 Gm Tube) 1 appl TOPICAL BID [facility]; Protocol Last Admin: 11/08/22 21:37 Dose: Not Given Multivitamins/Vitamin C (Multivitamin Tablet) 1 tab PO DAILY [facility] Last Admin: 11/09/22 09:08 Dose: 1 tab Naltrexone HCl (Naltrexone Hcl 50 Mg Tablet) 50 mg PO DAILY [facility] Last Admin: 11/09/22 09:09 Dose: 50 mg Nortriptyline HCl (Nortriptyline Hcl 25 Mg Capsule) 100 mg PO BEDTIME [facility] Last Admin: 11/08/22 21:22 Dose: 100 mg Nystatin (Nystatin Powder 15 Gm Bottle) 1 appl TOPICAL BID [facility] Last Admin: 11/08/22 21:25 Dose: 1 appl Omeprazole (Omeprazole 20 Mg Capsule.Dr) 20 mg PO BID@0630,1630 [facility] Last Admin: 11/09/22 06:34 Dose: Not Given Ondansetron HCl (Ondansetron Odt 4 Mg Tab.Rapdis) 4 mg TRANSLINGU Q6H PRN PRN Reason: Nausea and Vomiting Oxybutynin Chloride (Oxybutynin Chloride Er 5 Mg Tab.Er.24) 10 mg PO DAILY [facility] Last Admin: 11/09/22 09:03 Dose: 10 mg Polyethylene Glycol (Polyethylene Glycol 3350 17 Gm Powd.Pack) 17 gm PO DAILY@1600 [facility] Last Admin: 11/08/22 15:47 Dose: 17 gm Pramipexole Dihydrochloride (Pramipexole Di-Hcl 0.25 Mg Tablet) 0.25 mg PO TID [facility] Last Admin: 11/09/22 09:05 Dose: 0.25 mg Psyllium Hydrophilic Mucilloid (Psyllium Seed 3.4 Gm Powd.Pack) 3.4 gm PO DAILY [facility] Last Admin: 11/09/22 09:11 Dose: 3.4 gm Quetiapine Fumarate (Quetiapine Fumarate 25 Mg Tablet) 25 mg PO Q4H PRN PRN Reason: Anxiety Last Admin: 11/01/22 14:40 Dose: 25 mg Quetiapine Fumarate (Quetiapine Fumarate 50 Mg Tablet) 50 mg PO BID@0900,1700 [facility] Last Admin: 11/09/22 09:05 Dose: 50 mg Quetiapine Fumarate (Quetiapine Fumarate 50 Mg Tablet) 150 mg PO BEDTIME [facility] Last Admin: 11/08/22 21:22 Dose: 150 mg Tamsulosin HCl (Tamsulosin Hcl 0.4 Mg Capsule) 0.4 mg PO DAILY [facility] Last Admin: 11/09/22 09:11 Dose: 0.4 mg Trazodone HCl (Trazodone Hcl 100 Mg Tablet) 200 mg PO BEDTIME [facility] Last Admin: 11/08/22 21:23 Dose: 200 mg Trazodone HCl (Trazodone Hcl 50 Mg Tablet) 50 mg PO BEDTIME PRN PRN Reason: Insomnia Last Admin: 11/08/22 01:12 Dose: 50 mg Vitamin D (Cholecalciferol (Vitamin D3) 10 Mcg Tablet) 10 mcg PO DAILY [facility] Last Admin: 11/09/22 09:06 Dose: 10 mcg Allergies Allergies Allergy/AdvReac Type Severity Reaction Status Date / Time fentanyl [FENTANYL] Allergy Intermediate unknown Verified 04/08/22 07:00 Assessment & Plan Assessment & Plan (1) Acute head injury without loss of consciousness: Status: Acute Code(s): S09.90XA - Unspecified injury of head, initial encounter Plan The patient is a 67-year-old male, , 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 At this moment also, he has problems of housing since he will not be able to go back to his regular detention.? The patient has a long history of alcohol use disorder that he was not able to process or work on it.? Plan 1. Continue with the same treatment.? 2. We will work with the social services analyst and DDS for a proper discharge planning.? 3. Continue with recommendations of Wound Care. 4. Increase Seroquel up to 150 mg po qhs. 10/30/22 restart lorazepam 1 hs prn insomnia norterip inc 100 hs level in 50 s monitor ekg 11/01 continue current tx plan 11/02/22- Bedside Swallow eval. s/p choking episode on 11/01. 2021 Increase Lexapro encourage CBT skills need supportive coaching patient increasingly hopeless helpless denies active self-harm check nortriptyline level 11/05/2022 Check nortriptyline level patient on Seroquel nortriptyline Lexapro.? Needs much reassurance and support the has difficulty interacting at times secondary to a hopelessness irritability passive SI.? Patient has having difficulty maintaining his posture in his chair unclear why this is happening for discuss safety issues with nursing will need OT and potentially Pt input? 11/06/2022 Patient depressed and anxious tried to review cognitive behavioral perspectives ways to emotionally manage current situational factors.? Patient has for an extended period of time had great deal of difficulty with any emotional a mental coping strategies.? Will and lorazepam p.r.n. 0.5 mg to help with anxiety trying get clarity from DTS regarding transition to detention setting positive reinforcement for patient's efforts at physical conditioning becomes demoralized easily denies active self-harm 11/07 continue tx. 11/08 no changes, pt had unwitnessed fall and hit head, head CT negative 11/09 no changes Patient educated on: therapeutic strategies Reason for contiued inpatient stay Substantial Risk for: harm to self, rapid decompensation and med/psych decompensation Time Spent With Patient Time: Total time managing care of this patient today ____ minutes.
[2022-11-09] MEDS: Lidocaine 5 % Ointment 35 GM 1 APPL TOPICAL ×2 (14:42→20:43)
[2022-11-09] MEDS: Nystatin Powder 15 GM BOTTLE 1 APPL TOPICAL ×2 (14:43→20:43)
[2022-11-09] MEDS: Mineral Oil/Petrolatum,White 106 GM Tube 1 APPL TOPICAL (14:45)
[2022-11-09] MEDS: Omeprazole 20 MG CAPSULE.DR PO (16:45)
[2022-11-09] MEDS: polyethylene glycoL 3350 17 GM POWD.PACK PO (16:45)
[2022-11-09 18:00] VITALS: BP 175/90; PULSE 70; RESP 16; TEMP 36.2; O2SAT 98
[2022-11-09] MEDS: Nortriptyline HCl 25 MG CAPSULE 100 MG PO (20:30)
[2022-11-09] MEDS: Melatonin 3 MG TABLET 9 MG PO (20:31)
[2022-11-09] MEDS: traZODone HCL 100 MG TABLET 200 MG PO (20:31)
[2022-11-09] MEDS: QUEtiapine Fumarate 50 MG TABLET 150 MG PO (20:35)
[2022-11-10] MEDS: Omeprazole 20 MG CAPSULE.DR PO ×2 (05:20→16:58)
[2022-11-10 06:00] VITALS: BP 145/64; PULSE 76; RESP 15; TEMP 36.6; O2SAT 95
[2022-11-10] MEDS: Escitalopram Oxalate 5 MG TABLET 15 MG PO (08:55)
[2022-11-10] MEDS: Finasteride 5 MG TABLET PO (08:55)
[2022-11-10] MEDS: Gabapentin 300 MG CAPSULE 600 MG PO ×3 (08:56→20:33)
[2022-11-10] MEDS: Multivitamin TABLET 1 TAB PO (08:56)
[2022-11-10] MEDS: Cholecalciferol (Vitamin D3) 10 MCG TABLET PO (08:56)
[2022-11-10] MEDS: Pramipexole Di-HCL 0.25 MG TABLET PO ×3 (08:56→20:34)
[2022-11-10] MEDS: Tamsulosin HCL 0.4 MG CAPSULE PO (08:56)
[2022-11-10] MEDS: amLODIPine Besylate 5 MG TABLET PO (08:56)
[2022-11-10] MEDS: lisinopriL 20 MG TABLET PO (08:56)
[2022-11-10] MEDS: QUEtiapine Fumarate 50 MG TABLET PO ×2 (08:56→16:59)
[2022-11-10] MEDS: lamoTRIgine 100 MG TABLET 200 MG PO ×2 (08:56→20:34)
[2022-11-10] MEDS: Naltrexone HCl 50 MG TABLET PO (08:56)
[2022-11-10] MEDS: Mineral Oil/Petrolatum,White 106 GM Tube 1 APPL TOPICAL ×2 (08:57→20:35)
[2022-11-10] MEDS: Nystatin Powder 15 GM BOTTLE 1 APPL TOPICAL ×2 (08:57→20:35)
[2022-11-10] MEDS: calcium polycarbophiL TABLET 1 TAB PO (09:05)
[2022-11-10] MEDS: Lidocaine 5 % Ointment 35 GM 1 APPL TOPICAL ×2 (09:05→20:38)
--- NOTE | 2022-11-10 15:17 | HO.PSYCHPN ---
Subjective Subjective Date of Service: 11/10/22 Reason For Visit: Depression aggression Interim History: Discussed with team. Pt said he spoke with his brother's best friend last night, he is involved in the preparations for Mikie's interment, after that he was tossing and turning. Says he wishes he had a therapist to talk to, which is good insight. Mental Status Exam Mental Status Exam Narrative: Sad looking Patient Appearance: Disheveled and Perspiring Patient Orientation: Person, Place, Time and Situation Level of Consciousness: Awake and Alert Patient Behavior: Guarded, Anxious, Fatigued and Isolative Mood Description: Constricted, Depressed, Anxious, Labile and Apprehensive Affect Description: Constricted, Angry and Apprehensive Patient Cognition Impaired: Yes Ability to Follow Directions: Fair Speech Pattern: Spontaneous Speech Memory Description: Episodic Impaired Diagnostics Vital Signs (24Hr): Vital Signs - 24 hr 11/09/22 18:00 11/10/22 06:00 Temperature 97.2 F 97.9 F Pulse Rate 70 76 Respiratory Rate 16 15 Blood Pressure 175/90 H 145/64 H Pulse Oximetry 98 95 Oxygen Delivery Method Room Air Room Air BMI result Body Mass Index 31.7 Labs Results: 10/20/22 14:26 10/03/22 19:19 Imaging Radiology Impressions: ITS Impressions Chest X-Ray 10/20/22 15:45 IMPRESSION: 1. Low lung volumes with bibasilar linear disc atelectasis versus scarring. 2. No airspace consolidation or effusion. Head CT 11/08/22 12:29 IMPRESSION: No acute intracranial hemorrhage or territorial infarction. Stable chronic postoperative changes with gliosis and encephalomalacia in the right frontal and right temporal lobes. Ex vacuo dilatation of the ventricles and diffuse parenchymal volume loss. Right-sided craniotomy changes. Medications Medications Current Medications Acetaminophen (Acetaminophen 325 Mg Tablet) 650 mg PO Q6H PRN PRN Reason: Headache/Pain Mild Scale (1-3) Last Admin: 11/09/22 09:20 Dose: 650 mg Al Hydroxide/Mg Hydroxide (Magnesium Hydrox/Alum Hydrox 30 Ml Oral.Susp) 30 ml PO Q6H PRN PRN Reason: Heartburn/Nausea Last Admin: 10/19/22 18:47 Dose: 30 ml Albuterol Sulfate (Albuterol Sulfate 90 Mcg 8 Gm Inhaler) 2 puff INHALE Q6H PRN PRN Reason: Wheezing Amlodipine Besylate (Amlodipine Besylate 5 Mg Tablet) 5 mg PO DAILY [facility]; Protocol Last Admin: 11/10/22 08:56 Dose: 5 mg Benzocaine (Throat Lozenge, Medicated Lozenge) 1 lozenge MUCOUS MEM Q2H PRN PRN Reason: Sore Throat Last Admin: 10/06/22 18:51 Dose: 1 lozenge Calcium Polycarbophil (Calcium Polycarbophil Tablet) 1 tab PO DAILY [facility] Last Admin: 11/10/22 09:05 Dose: 1 tab Docusate Sodium (Docusate Sodium 100 Mg Capsule) 100 mg PO DAILY PRN PRN Reason: constipation Last Admin: 11/08/22 21:48 Dose: 100 mg Escitalopram Oxalate (Escitalopram Oxalate 5 Mg Tablet) 15 mg PO DAILY [facility] Last Admin: 11/10/22 08:55 Dose: 15 mg Finasteride (Finasteride 5 Mg Tablet) 5 mg PO DAILY [facility] Last Admin: 11/10/22 08:55 Dose: 5 mg Gabapentin (Gabapentin 300 Mg Capsule) 600 mg PO TID [facility] Last Admin: 11/10/22 08:56 Dose: 600 mg Hydroxyzine HCl (Hydroxyzine Hcl 25 Mg Tablet) 25 mg PO Q6H PRN PRN Reason: Anxiety Last Admin: 11/08/22 01:12 Dose: 25 mg Lamotrigine (Lamotrigine 100 Mg Tablet) 200 mg PO BID [facility] Last Admin: 11/10/22 08:56 Dose: 200 mg Latanoprost (Latanoprost 0.005 % Ophth No 2.5 Ml Drops) 1 drop EYE-BOTH BEDTIME [facility] Last Admin: 11/09/22 20:47 Dose: Not Given Lidocaine (Lidocaine 5 % Ointment 35 Gm) 1 appl TOPICAL QID [facility] Last Admin: 11/10/22 14:13 Dose: Not Given Lisinopril (Lisinopril 20 Mg Tablet) 20 mg PO DAILY [facility]; Protocol Last Admin: 11/10/22 08:56 Dose: 20 mg Lorazepam (Lorazepam 0.5 Mg Tablet) 0.5 mg PO Q8H PRN PRN Reason: Anxiety Last Admin: 11/09/22 09:20 Dose: 0.5 mg Lorazepam (Lorazepam 0.5 Mg Tablet) 0.5 mg PO BEDTIME [facility] Last Admin: 11/09/22 20:31 Dose: 0.5 mg Magnesium Hydroxide (Milk Of Magnesia 30 Ml Oral.Susp) 30 ml PO DAILY PRN PRN Reason: Constipation Last Admin: 10/21/22 22:46 Dose: 30 ml Melatonin (Melatonin 3 Mg Tablet) 9 mg PO BEDTIME [facility] Last Admin: 11/09/22 20:31 Dose: 9 mg Multi-Ingred Cream/Lotion/Oil/Oint (Mineral Oil/Petrolatum,White 106 Gm Tube) 1 appl TOPICAL BID [facility]; Protocol Last Admin: 11/10/22 08:57 Dose: 1 appl Multivitamins/Vitamin C (Multivitamin Tablet) 1 tab PO DAILY [facility] Last Admin: 11/10/22 08:56 Dose: 1 tab Naltrexone HCl (Naltrexone Hcl 50 Mg Tablet) 50 mg PO DAILY [facility] Last Admin: 11/10/22 08:56 Dose: 50 mg Nortriptyline HCl (Nortriptyline Hcl 25 Mg Capsule) 100 mg PO BEDTIME [facility] Last Admin: 11/09/22 20:30 Dose: 100 mg Nystatin (Nystatin Powder 15 Gm Bottle) 1 appl TOPICAL BID [facility] Last Admin: 11/10/22 08:57 Dose: 1 appl Omeprazole (Omeprazole 20 Mg Capsule.Dr) 20 mg PO BID@0630,1630 [facility] Last Admin: 11/10/22 05:20 Dose: 20 mg Ondansetron HCl (Ondansetron Odt 4 Mg Tab.Rapdis) 4 mg TRANSLINGU Q6H PRN PRN Reason: Nausea and Vomiting Oxybutynin Chloride (Oxybutynin Chloride Er 5 Mg Tab.Er.24) 10 mg PO DAILY [facility] Last Admin: 11/10/22 08:56 Dose: 10 mg Polyethylene Glycol (Polyethylene Glycol 3350 17 Gm Powd.Pack) 17 gm PO DAILY@1600 [facility] Last Admin: 11/09/22 16:45 Dose: 17 gm Pramipexole Dihydrochloride (Pramipexole Di-Hcl 0.25 Mg Tablet) 0.25 mg PO TID [facility] Last Admin: 11/10/22 08:56 Dose: 0.25 mg Psyllium Hydrophilic Mucilloid (Psyllium Seed 3.4 Gm Powd.Pack) 3.4 gm PO DAILY [facility] Last Admin: 11/10/22 09:05 Dose: 3.4 gm Quetiapine Fumarate (Quetiapine Fumarate 25 Mg Tablet) 25 mg PO Q4H PRN PRN Reason: Anxiety Last Admin: 11/01/22 14:40 Dose: 25 mg Quetiapine Fumarate (Quetiapine Fumarate 50 Mg Tablet) 50 mg PO BID@0900,1700 [facility] Last Admin: 11/10/22 08:56 Dose: 50 mg Quetiapine Fumarate (Quetiapine Fumarate 50 Mg Tablet) 150 mg PO BEDTIME [facility] Last Admin: 11/09/22 20:35 Dose: 150 mg Tamsulosin HCl (Tamsulosin Hcl 0.4 Mg Capsule) 0.4 mg PO DAILY [facility] Last Admin: 11/10/22 08:56 Dose: 0.4 mg Trazodone HCl (Trazodone Hcl 100 Mg Tablet) 200 mg PO BEDTIME [facility] Last Admin: 11/09/22 20:31 Dose: 200 mg Trazodone HCl (Trazodone Hcl 50 Mg Tablet) 50 mg PO BEDTIME PRN PRN Reason: Insomnia Last Admin: 11/08/22 01:12 Dose: 50 mg Vitamin D (Cholecalciferol (Vitamin D3) 10 Mcg Tablet) 10 mcg PO DAILY [facility] Last Admin: 11/10/22 08:56 Dose: 10 mcg Allergies Allergies Allergy/AdvReac Type Severity Reaction Status Date / Time fentanyl [FENTANYL] Allergy Intermediate unknown Verified 04/08/22 07:00 Assessment & Plan Assessment & Plan (1) Acute head injury without loss of consciousness: Status: Acute Code(s): S09.90XA - Unspecified injury of head, initial encounter Plan The patient is a 67-year-old male, , 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 At this moment also, he has problems of housing since he will not be able to go back to his regular long-term.? The patient has a long history of alcohol use disorder that he was not able to process or work on it.? Plan 1. Continue with the same treatment.? 2. We will work with the social services designee and DDS for a proper discharge planning.? 3. Continue with recommendations of Wound Care. 4. Increase Seroquel up to 150 mg po qhs. 10/30/22 restart lorazepam 1 hs prn insomnia norterip inc 100 hs level in 50 s monitor ekg 11/01 continue current tx plan 11/02/22- Bedside Swallow eval. s/p choking episode on 11/01. 2021 Increase Lexapro encourage CBT skills need supportive coaching patient increasingly hopeless helpless denies active self-harm check nortriptyline level 11/05/2022 Check nortriptyline level patient on Seroquel nortriptyline Lexapro.? Needs much reassurance and support the has difficulty interacting at times secondary to a hopelessness irritability passive SI.? Patient has having difficulty maintaining his posture in his chair unclear why this is happening for discuss safety issues with nursing will need OT and potentially Pt input? 11/06/2022 Patient depressed and anxious tried to review cognitive behavioral perspectives ways to emotionally manage current situational factors.? Patient has for an extended period of time had great deal of difficulty with any emotional a mental coping strategies.? Will and lorazepam p.r.n. 0.5 mg to help with anxiety trying get clarity from DTS regarding transition to long-term setting positive reinforcement for patient's efforts at physical conditioning becomes demoralized easily denies active self-harm 11/07 continue tx. 11/08 no changes, pt had unwitnessed fall and hit head, head CT negative 11/09 no changes 11/10 no changes Reason for contiued inpatient stay Substantial Risk for: harm to self, rapid decompensation and med/psych decompensation Time Spent With Patient Time: Total time managing care of this patient today ____ minutes.
[2022-11-10] MEDS: polyethylene glycoL 3350 17 GM POWD.PACK PO (16:58)
[2022-11-10 18:00] VITALS: BP 145/70; PULSE 69; RESP 18; O2SAT 97
[2022-11-10] MEDS: Nortriptyline HCl 25 MG CAPSULE 100 MG PO (20:33)
[2022-11-10] MEDS: QUEtiapine Fumarate 50 MG TABLET 150 MG PO (20:33)
[2022-11-10] MEDS: LORazepam 0.5 MG TABLET PO (20:34)
[2022-11-10] MEDS: traZODone HCL 100 MG TABLET 200 MG PO (20:34)
[2022-11-10] MEDS: Melatonin 3 MG TABLET 9 MG PO (20:34)
[2022-11-11 00:08] LABS: Nortriptyline 112 mcg/L (50-150)
[2022-11-11] MEDS: Latanoprost 0.005 % Ophth Sol 2.5 ML DROPS 1 DROP EYE-BOTH ×2 (00:10→20:47)
[2022-11-11] MEDS: traZODone HCL 50 MG TABLET PO (00:27)
[2022-11-11] MEDS: hydrOXYzine HCL 25 MG TABLET PO (00:27)
[2022-11-11] MEDS: Omeprazole 20 MG CAPSULE.DR PO ×2 (05:20→17:53)
[2022-11-11] MEDS: Acetaminophen 325 MG TABLET 650 MG PO (05:20)
[2022-11-11] MEDS: LORazepam 0.5 MG TABLET PO ×2 (05:41→20:33)
[2022-11-11 08:50] VITALS: BP 110/59; PULSE 74; RESP 18; TEMP 36; O2SAT 94
[2022-11-11] MEDS: Gabapentin 300 MG CAPSULE 600 MG PO ×3 (08:59→20:33)
[2022-11-11] MEDS: Escitalopram Oxalate 5 MG TABLET 15 MG PO (08:59)
[2022-11-11] MEDS: Naltrexone HCl 50 MG TABLET PO (09:00)
[2022-11-11] MEDS: Pramipexole Di-HCL 0.25 MG TABLET PO ×3 (09:00→20:38)
[2022-11-11] MEDS: QUEtiapine Fumarate 50 MG TABLET PO ×2 (09:00→17:53)
[2022-11-11] MEDS: calcium polycarbophiL TABLET 1 TAB PO (09:00)
[2022-11-11] MEDS: lisinopriL 20 MG TABLET PO (09:01)
[2022-11-11] MEDS: amLODIPine Besylate 5 MG TABLET PO (09:01)
[2022-11-11] MEDS: Tamsulosin HCL 0.4 MG CAPSULE PO (09:01)
[2022-11-11] MEDS: Cholecalciferol (Vitamin D3) 10 MCG TABLET PO (09:01)
[2022-11-11] MEDS: Multivitamin TABLET 1 TAB PO (09:02)
[2022-11-11] MEDS: lamoTRIgine 100 MG TABLET 200 MG PO ×2 (09:02→20:34)
[2022-11-11] MEDS: Lidocaine 5 % Ointment 35 GM 1 APPL TOPICAL ×3 (09:03→20:45)
[2022-11-11] MEDS: Mineral Oil/Petrolatum,White 106 GM Tube 1 APPL TOPICAL ×2 (09:03→20:44)
[2022-11-11] MEDS: Nystatin Powder 15 GM BOTTLE 1 APPL TOPICAL ×2 (09:04→20:44)
[2022-11-11] MEDS: Finasteride 5 MG TABLET PO (09:23)
--- NOTE | 2022-11-11 11:40 | HO.PSYCHPN ---
Subjective Subjective Date of Service: 11/11/22 Reason For Visit: Depression aggression Subjective Notes: Conditional Voluntary Interim History: The nursing staff reported the patient has been compliant with treatment but he had been more angry and he had made resist comments over the weekend. The occupational therapist reported that his mobility has decline and sometimes he cannot even feed himself. He has choke with pills and food in the past. He had and speech and swallow test on November 03 with no new symptoms. No new recommendations. On interview the patient reports depression and anxiety. At this moment he is on Lexapro 15 mg a day and on a therapeutic level of nortriptyline. He requested an increase of Ativan. We discussed options and he agreed to continue treatment. Mental Status Exam Mental Status Exam Patient Appearance: Well Grooomed and Appropriate Patient Orientation: Person and Situation Level of Consciousness: Awake and Appropriate Patient Behavior: Cooperative and Passive Mood Description: Withdrawn and Depressed Affect Description: Constricted Patient Cognition Impaired: Yes Ability to Follow Directions: Good Speech Pattern: Clear Hallucinations: None Delusions: Not Present Thought Process: Linear Thought Content: positive for [place], positive for Circumstantial and positive for Poverty of Content Judgement: Fair Diagnostics Vital Signs (24Hr): Vital Signs - 24 hr 11/10/22 18:00 11/11/22 08:50 Temperature 96.8 F Pulse Rate 69 74 Respiratory Rate 18 18 Blood Pressure 145/70 H 110/59 L Pulse Oximetry 97 94 Oxygen Delivery Method Room Air Room Air BMI result Body Mass Index 31.7 Labs Results: 10/20/22 14:26 10/03/22 19:19 Labs: Laboratory Results - last 48 hr 11/05/22 08:05 Nortriptyline 112 Imaging Radiology Impressions: ITS Impressions Chest X-Ray 10/20/22 15:45 IMPRESSION: 1. Low lung volumes with bibasilar linear disc atelectasis versus scarring. 2. No airspace consolidation or effusion. Head CT 11/08/22 12:29 IMPRESSION: No acute intracranial hemorrhage or territorial infarction. Stable chronic postoperative changes with gliosis and encephalomalacia in the right frontal and right temporal lobes. Ex vacuo dilatation of the ventricles and diffuse parenchymal volume loss. Right-sided craniotomy changes. Medications Medications Current Medications Acetaminophen (Acetaminophen 325 Mg Tablet) 650 mg PO Q6H PRN PRN Reason: Headache/Pain Mild Scale (1-3) Last Admin: 12/27/22 05:20 Dose: 650 mg Al Hydroxide/Mg Hydroxide (Magnesium Hydrox/Alum Hydrox 30 Ml Oral.Susp) 30 ml PO Q6H PRN PRN Reason: Heartburn/Nausea Last Admin: 10/19/22 18:47 Dose: 30 ml Albuterol Sulfate (Albuterol Sulfate 90 Mcg 8 Gm Inhaler) 2 puff INHALE Q6H PRN PRN Reason: Wheezing Amlodipine Besylate (Amlodipine Besylate 5 Mg Tablet) 5 mg PO DAILY [facility]; Protocol Last Admin: 11/11/22 09:01 Dose: 5 mg Benzocaine (Throat Lozenge, Medicated Lozenge) 1 lozenge MUCOUS MEM Q2H PRN PRN Reason: Sore Throat Last Admin: 10/06/22 18:51 Dose: 1 lozenge Calcium Polycarbophil (Calcium Polycarbophil Tablet) 1 tab PO DAILY [facility] Last Admin: 11/11/22 09:00 Dose: 1 tab Docusate Sodium (Docusate Sodium 100 Mg Capsule) 100 mg PO DAILY PRN PRN Reason: constipation Last Admin: 11/08/22 21:48 Dose: 100 mg Escitalopram Oxalate (Escitalopram Oxalate 5 Mg Tablet) 15 mg PO DAILY [facility] Last Admin: 11/11/22 08:59 Dose: 15 mg Finasteride (Finasteride 5 Mg Tablet) 5 mg PO DAILY [facility] Last Admin: 11/11/22 09:23 Dose: 5 mg Gabapentin (Gabapentin 300 Mg Capsule) 600 mg PO TID [facility] Last Admin: 11/11/22 08:59 Dose: 600 mg Hydroxyzine HCl (Hydroxyzine Hcl 25 Mg Tablet) 25 mg PO Q6H PRN PRN Reason: Anxiety Last Admin: 11/11/22 00:27 Dose: 25 mg Lamotrigine (Lamotrigine 100 Mg Tablet) 200 mg PO BID [facility] Last Admin: 11/11/22 09:02 Dose: 200 mg Latanoprost (Latanoprost 0.005 % Ophth No 2.5 Ml Drops) 1 drop EYE-BOTH BEDTIME [facility] Last Admin: 11/11/22 00:10 Dose: 1 drop Lidocaine (Lidocaine 5 % Ointment 35 Gm) 1 appl TOPICAL QID [facility] Last Admin: 11/11/22 09:03 Dose: 1 appl Lisinopril (Lisinopril 20 Mg Tablet) 20 mg PO DAILY [facility]; Protocol Last Admin: 11/11/22 09:01 Dose: 20 mg Lorazepam (Lorazepam 0.5 Mg Tablet) 0.5 mg PO Q8H PRN PRN Reason: Anxiety Last Admin: 11/11/22 05:41 Dose: 0.5 mg Lorazepam (Lorazepam 0.5 Mg Tablet) 0.5 mg PO BEDTIME [facility] Last Admin: 11/10/22 20:34 Dose: 0.5 mg Magnesium Hydroxide (Milk Of Magnesia 30 Ml Oral.Susp) 30 ml PO DAILY PRN PRN Reason: Constipation Last Admin: 10/21/22 22:46 Dose: 30 ml Melatonin (Melatonin 3 Mg Tablet) 9 mg PO BEDTIME [facility] Last Admin: 11/10/22 20:34 Dose: 9 mg Multi-Ingred Cream/Lotion/Oil/Oint (Mineral Oil/Petrolatum,White 106 Gm Tube) 1 appl TOPICAL BID [facility]; Protocol Last Admin: 11/11/22 09:03 Dose: 1 appl Multivitamins/Vitamin C (Multivitamin Tablet) 1 tab PO DAILY [facility] Last Admin: 11/11/22 09:02 Dose: 1 tab Naltrexone HCl (Naltrexone Hcl 50 Mg Tablet) 50 mg PO DAILY [facility] Last Admin: 11/11/22 09:00 Dose: 50 mg Nortriptyline HCl (Nortriptyline Hcl 25 Mg Capsule) 100 mg PO BEDTIME [facility] Last Admin: 11/10/22 20:33 Dose: 100 mg Nystatin (Nystatin Powder 15 Gm Bottle) 1 appl TOPICAL BID [facility] Last Admin: 11/11/22 09:04 Dose: 1 appl Omeprazole (Omeprazole 20 Mg Capsule.Dr) 20 mg PO BID@0630,1630 [facility] Last Admin: 11/11/22 05:20 Dose: 20 mg Ondansetron HCl (Ondansetron Odt 4 Mg Tab.Rapdis) 4 mg TRANSLINGU Q6H PRN PRN Reason: Nausea and Vomiting Oxybutynin Chloride (Oxybutynin Chloride Er 5 Mg Tab.Er.24) 10 mg PO DAILY [facility] Last Admin: 11/11/22 09:02 Dose: 10 mg Polyethylene Glycol (Polyethylene Glycol 3350 17 Gm Powd.Pack) 17 gm PO DAILY@1600 [facility] Last Admin: 11/10/22 16:58 Dose: 17 gm Pramipexole Dihydrochloride (Pramipexole Di-Hcl 0.25 Mg Tablet) 0.25 mg PO TID [facility] Last Admin: 11/11/22 09:00 Dose: 0.25 mg Psyllium Hydrophilic Mucilloid (Psyllium Seed 3.4 Gm Powd.Pack) 3.4 gm PO DAILY [facility] Last Admin: 11/11/22 09:03 Dose: 3.4 gm Quetiapine Fumarate (Quetiapine Fumarate 25 Mg Tablet) 25 mg PO Q4H PRN PRN Reason: Anxiety Last Admin: 11/01/22 14:40 Dose: 25 mg Quetiapine Fumarate (Quetiapine Fumarate 50 Mg Tablet) 50 mg PO BID@0900,1700 [facility] Last Admin: 11/11/22 09:00 Dose: 50 mg Quetiapine Fumarate (Quetiapine Fumarate 50 Mg Tablet) 150 mg PO BEDTIME [facility] Last Admin: 11/10/22 20:33 Dose: 150 mg Tamsulosin HCl (Tamsulosin Hcl 0.4 Mg Capsule) 0.4 mg PO DAILY [facility] Last Admin: 11/11/22 09:01 Dose: 0.4 mg Trazodone HCl (Trazodone Hcl 100 Mg Tablet) 200 mg PO BEDTIME [facility] Last Admin: 11/10/22 20:34 Dose: 200 mg Trazodone HCl (Trazodone Hcl 50 Mg Tablet) 50 mg PO BEDTIME PRN PRN Reason: Insomnia Last Admin: 11/11/22 00:27 Dose: 50 mg Vitamin D (Cholecalciferol (Vitamin D3) 10 Mcg Tablet) 10 mcg PO DAILY [facility] Last Admin: 11/11/22 09:01 Dose: 10 mcg Allergies Allergies Allergy/AdvReac Type Severity Reaction Status Date / Time fentanyl [FENTANYL] Allergy Intermediate unknown Verified 04/08/22 07:00 Assessment & Plan Assessment & Plan (1) Acute head injury without loss of consciousness: Status: Acute Code(s): S09.90XA - Unspecified injury of head, initial encounter Plan The patient is a 67-year-old male, , 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 At this moment also, he has problems of housing since he will not be able to go back to his regular fpc.? The patient has a long history of alcohol use disorder that he was not able to process or work on it.? Plan 1. Continue with the same treatment.? 2. We will work with the social contact worker and DDS for a proper discharge planning.? 3. Continue with recommendations of Wound Care. 4. Increase Seroquel up to 150 mg po qhs. 10/30/22 restart lorazepam 1 hs prn insomnia norterip inc 100 hs level in 50 s monitor ekg 11/01 continue current tx plan 11/02/22- Bedside Swallow eval. s/p choking episode on 11/01. 2021 Increase Lexapro encourage CBT skills need supportive coaching patient increasingly hopeless helpless denies active self-harm check nortriptyline level 11/05/2022 Check nortriptyline level patient on Seroquel nortriptyline Lexapro.? Needs much reassurance and support the has difficulty interacting at times secondary to a hopelessness irritability passive SI.? Patient has having difficulty maintaining his posture in his chair unclear why this is happening for discuss safety issues with nursing will need OT and potentially Pt input? 11/06/2022 Patient depressed and anxious tried to review cognitive behavioral perspectives ways to emotionally manage current situational factors.? Patient has for an extended period of time had great deal of difficulty with any emotional a mental coping strategies.? Will and lorazepam p.r.n. 0.5 mg to help with anxiety trying get clarity from DTS regarding transition to fpc setting positive reinforcement for patient's efforts at physical conditioning becomes demoralized easily denies active self-harm 11/07 continue tx. 11/08 no changes, pt had unwitnessed fall and hit head, head CT negative 11/09 no changes 11/10 no changes 11/11 no changes Reason for contiued inpatient stay Substantial Risk for: inability to function, rapid decompensation and med/psych decompensation Time Spent With Patient Time: Total time managing care of this patient today ____ minutes.
[2022-11-11] MEDS: polyethylene glycoL 3350 17 GM POWD.PACK PO (17:53)
[2022-11-11 18:00] VITALS: BP 113/62; PULSE 64; RESP 18; TEMP 36.4; O2SAT 97
[2022-11-11] MEDS: Nortriptyline HCl 25 MG CAPSULE 100 MG PO (20:31)
[2022-11-11] MEDS: traZODone HCL 100 MG TABLET 200 MG PO (20:35)
[2022-11-11] MEDS: QUEtiapine Fumarate 50 MG TABLET 150 MG PO (20:35)
[2022-11-11] MEDS: Melatonin 3 MG TABLET 9 MG PO (20:45)
[2022-11-12] MEDS: Throat Lozenge, Medicated LOZENGE 1 LOZENGE MUCOUS MEM (03:08)
[2022-11-12 03:41] VITALS: BP 118/72; PULSE 64; RESP 20; TEMP 36.6; O2SAT 93
[2022-11-12] MEDS: Omeprazole 20 MG CAPSULE.DR PO ×2 (06:22→15:31)
[2022-11-12 08:30] VITALS: BP 120/61; PULSE 82; RESP 20; TEMP 36.3; O2SAT 98
[2022-11-12] MEDS: Finasteride 5 MG TABLET PO (08:30)
[2022-11-12] MEDS: calcium polycarbophiL TABLET 1 TAB PO (08:31)
[2022-11-12] MEDS: lisinopriL 20 MG TABLET PO (08:32)
[2022-11-12] MEDS: Naltrexone HCl 50 MG TABLET PO (08:32)
[2022-11-12] MEDS: Cholecalciferol (Vitamin D3) 10 MCG TABLET PO (08:32)
[2022-11-12] MEDS: QUEtiapine Fumarate 50 MG TABLET PO ×2 (08:32→16:33)
[2022-11-12] MEDS: Escitalopram Oxalate 5 MG TABLET 15 MG PO (08:34)
[2022-11-12] MEDS: Multivitamin TABLET 1 TAB PO (08:35)
[2022-11-12] MEDS: Pramipexole Di-HCL 0.25 MG TABLET PO ×3 (08:35→21:22)
[2022-11-12] MEDS: lamoTRIgine 100 MG TABLET 200 MG PO ×2 (08:35→21:24)
[2022-11-12] MEDS: Gabapentin 300 MG CAPSULE 600 MG PO ×3 (08:36→21:19)
[2022-11-12] MEDS: Tamsulosin HCL 0.4 MG CAPSULE PO (08:36)
[2022-11-12] MEDS: amLODIPine Besylate 5 MG TABLET PO (08:36)
[2022-11-12] MEDS: Mineral Oil/Petrolatum,White 106 GM Tube 1 APPL TOPICAL ×2 (08:37→21:34)
[2022-11-12] MEDS: Lidocaine 5 % Ointment 35 GM 1 APPL TOPICAL ×2 (08:37→21:34)
[2022-11-12] MEDS: Nystatin Powder 15 GM BOTTLE 1 APPL TOPICAL ×2 (08:39→21:34)
--- NOTE | 2022-11-12 09:34 | P.PNPSI_ITS ---
Subjective Subjective Date of Service: 11/12/22 Reason For Visit: Depression aggression Subjective Notes: Conditional Voluntary Interim History: Pt worked up for change in status brain mri not changed cxr atelectasis labs unremarkable pt anxious dyphoric intermittantly hopeless helpless responded to encouragement for finding ways to manage his emotional state Medication Compliance: Yes Diagnostics Vital Signs (24Hr): Vital Signs - 24 hr 11/11/22 18:00 11/12/22 03:41 Temperature 97.5 F 97.9 F Pulse Rate 64 64 Respiratory Rate 18 20 Blood Pressure 113/62 118/72 Pulse Oximetry 97 93 Oxygen Delivery Method Room Air Room Air BMI result Body Mass Index 31.7 Labs Results: 10/20/22 14:26 11/12/22 09:32 Labs: Laboratory Results - last 48 hr 11/05/22 08:05 Nortriptyline 112 Imaging Radiology Impressions: ITS Impressions Chest X-Ray 10/20/22 15:45 IMPRESSION: 1. Low lung volumes with bibasilar linear disc atelectasis versus scarring. 2. No airspace consolidation or effusion. Head CT 11/08/22 12:29 IMPRESSION: No acute intracranial hemorrhage or territorial infarction. Stable chronic postoperative changes with gliosis and encephalomalacia in the right frontal and right temporal lobes. Ex vacuo dilatation of the ventricles and diffuse parenchymal volume loss. Right-sided craniotomy changes. Medications Medications Current Medications Acetaminophen (Acetaminophen 325 Mg Tablet) 650 mg PO Q6H PRN PRN Reason: Headache/Pain Mild Scale (1-3) Last Admin: 11/11/22 05:20 Dose: 650 mg Al Hydroxide/Mg Hydroxide (Magnesium Hydrox/Alum Hydrox 30 Ml Oral.Susp) 30 ml PO Q6H PRN PRN Reason: Heartburn/Nausea Last Admin: 10/19/22 18:47 Dose: 30 ml Albuterol Sulfate (Albuterol Sulfate 90 Mcg 8 Gm Inhaler) 2 puff INHALE Q6H PRN PRN Reason: Wheezing Amlodipine Besylate (Amlodipine Besylate 5 Mg Tablet) 5 mg PO DAILY [facility]; Protocol Last Admin: 11/12/22 08:36 Dose: 5 mg Benzocaine (Throat Lozenge, Medicated Lozenge) 1 lozenge MUCOUS MEM Q2H PRN PRN Reason: Sore Throat Last Admin: 11/12/22 03:08 Dose: 1 lozenge Calcium Polycarbophil (Calcium Polycarbophil Tablet) 1 tab PO DAILY [facility] Last Admin: 11/12/22 08:31 Dose: 1 tab Docusate Sodium (Docusate Sodium 100 Mg Capsule) 100 mg PO DAILY PRN PRN Reason: constipation Last Admin: 11/08/22 21:48 Dose: 100 mg Escitalopram Oxalate (Escitalopram Oxalate 5 Mg Tablet) 15 mg PO DAILY [facility] Last Admin: 11/12/22 08:34 Dose: 15 mg Finasteride (Finasteride 5 Mg Tablet) 5 mg PO DAILY [facility] Last Admin: 11/12/22 08:30 Dose: 5 mg Gabapentin (Gabapentin 300 Mg Capsule) 600 mg PO TID [facility] Last Admin: 11/12/22 08:36 Dose: 600 mg Guaifenesin/Dextromethorphan (Guaifenesin Dm 200/20/10 Ml 10 Ml Syrup) 10 ml PO Q6H PRN PRN Reason: Cough Hydroxyzine HCl (Hydroxyzine Hcl 25 Mg Tablet) 25 mg PO Q6H PRN PRN Reason: Anxiety Last Admin: 11/11/22 00:27 Dose: 25 mg Lamotrigine (Lamotrigine 100 Mg Tablet) 200 mg PO BID [facility] Last Admin: 11/12/22 08:35 Dose: 200 mg Latanoprost (Latanoprost 0.005 % Ophth No 2.5 Ml Drops) 1 drop EYE-BOTH BEDTIME [facility] Last Admin: 11/11/22 20:47 Dose: 1 drop Lidocaine (Lidocaine 5 % Ointment 35 Gm) 1 appl TOPICAL QID [facility] Last Admin: 11/12/22 08:37 Dose: 1 appl Lisinopril (Lisinopril 20 Mg Tablet) 20 mg PO DAILY [facility]; Protocol Last Admin: 11/12/22 08:32 Dose: 20 mg Lorazepam (Lorazepam 0.5 Mg Tablet) 0.5 mg PO Q8H PRN PRN Reason: Anxiety Last Admin: 11/11/22 05:41 Dose: 0.5 mg Lorazepam (Lorazepam 0.5 Mg Tablet) 0.5 mg PO BEDTIME [facility] Last Admin: 11/11/22 20:33 Dose: 0.5 mg Magnesium Hydroxide (Milk Of Magnesia 30 Ml Oral.Susp) 30 ml PO DAILY PRN PRN Reason: Constipation Last Admin: 10/21/22 22:46 Dose: 30 ml Melatonin (Melatonin 3 Mg Tablet) 9 mg PO BEDTIME [facility] Last Admin: 11/11/22 20:45 Dose: 9 mg Multi-Ingred Cream/Lotion/Oil/Oint (Mineral Oil/Petrolatum,White 106 Gm Tube) 1 appl TOPICAL BID [facility]; Protocol Last Admin: 11/12/22 08:37 Dose: 1 appl Multivitamins/Vitamin C (Multivitamin Tablet) 1 tab PO DAILY [facility] Last Admin: 11/12/22 08:35 Dose: 1 tab Naltrexone HCl (Naltrexone Hcl 50 Mg Tablet) 50 mg PO DAILY [facility] Last Admin: 11/12/22 08:32 Dose: 50 mg Nortriptyline HCl (Nortriptyline Hcl 25 Mg Capsule) 100 mg PO BEDTIME [facility] Last Admin: 11/11/22 20:31 Dose: 100 mg Nystatin (Nystatin Powder 15 Gm Bottle) 1 appl TOPICAL BID [facility] Last Admin: 11/12/22 08:39 Dose: 1 appl Omeprazole (Omeprazole 20 Mg Capsule.Dr) 20 mg PO BID@0630,1630 [facility] Last Admin: 11/12/22 06:22 Dose: 20 mg Ondansetron HCl (Ondansetron Odt 4 Mg Tab.Rapdis) 4 mg TRANSLINGU Q6H PRN PRN Reason: Nausea and Vomiting Oxybutynin Chloride (Oxybutynin Chloride Er 5 Mg Tab.Er.24) 10 mg PO DAILY [facility] Last Admin: 11/12/22 08:31 Dose: 10 mg Polyethylene Glycol (Polyethylene Glycol 3350 17 Gm Powd.Pack) 17 gm PO DAILY@1600 [facility] Last Admin: 11/11/22 17:53 Dose: 17 gm Pramipexole Dihydrochloride (Pramipexole Di-Hcl 0.25 Mg Tablet) 0.25 mg PO TID [facility] Last Admin: 11/12/22 08:35 Dose: 0.25 mg Psyllium Hydrophilic Mucilloid (Psyllium Seed 3.4 Gm Powd.Pack) 3.4 gm PO DAILY [facility] Last Admin: 11/12/22 08:33 Dose: 3.4 gm Quetiapine Fumarate (Quetiapine Fumarate 25 Mg Tablet) 25 mg PO Q4H PRN PRN Reason: Anxiety Last Admin: 11/01/22 14:40 Dose: 25 mg Quetiapine Fumarate (Quetiapine Fumarate 50 Mg Tablet) 50 mg PO BID@0900,1700 [facility] Last Admin: 11/12/22 08:32 Dose: 50 mg Quetiapine Fumarate (Quetiapine Fumarate 50 Mg Tablet) 150 mg PO BEDTIME [facility] Last Admin: 11/11/22 20:35 Dose: 150 mg Tamsulosin HCl (Tamsulosin Hcl 0.4 Mg Capsule) 0.4 mg PO DAILY [facility] Last Admin: 11/12/22 08:36 Dose: 0.4 mg Trazodone HCl (Trazodone Hcl 100 Mg Tablet) 200 mg PO BEDTIME [facility] Last Admin: 11/11/22 20:35 Dose: 200 mg Trazodone HCl (Trazodone Hcl 50 Mg Tablet) 50 mg PO BEDTIME PRN PRN Reason: Insomnia Last Admin: 11/11/22 00:27 Dose: 50 mg Vitamin D (Cholecalciferol (Vitamin D3) 10 Mcg Tablet) 10 mcg PO DAILY [facility] Last Admin: 11/12/22 08:32 Dose: 10 mcg Allergies Allergies Allergy/AdvReac Type Severity Reaction Status Date / Time fentanyl [FENTANYL] Allergy Intermediate unknown Verified 04/08/22 07:00 Assessment & Plan Assessment & Plan (1) Acute head injury without loss of consciousness: Status: Acute Code(s): S09.90XA - Unspecified injury of head, initial encounter Plan The patient is a 67-year-old male, , 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 At this moment also, he has problems of housing since he will not be able to go back to his regular f[facility].? The patient has a long history of alcohol use disorder that he was not able to process or work on it.? Plan 1. Continue with the same treatment.? 2. We will work with the social services specialist and DDS for a proper discharge planning.? 3. Continue with recommendations of Wound Care. 4. Increase Seroquel up to 150 mg po qhs. 10/30/22 restart lorazepam 1 hs prn insomnia norterip inc 100 hs level in 50 s monitor ekg 11/01 continue current tx plan 11/02/22- Bedside Swallow eval. s/p choking episode on 11/01. 2021 Increase Lexapro encourage CBT skills need supportive coaching patient increasingly hopeless helpless denies active self-harm check nortriptyline level 11/05/2022 Check nortriptyline level patient on Seroquel nortriptyline Lexapro.? Needs much reassurance and support the has difficulty interacting at times secondary to a hopelessness irritability passive SI.? Patient has having difficulty maintaining his posture in his chair unclear why this is happening for discuss safety issues with nursing will need OT and potentially Pt input? 11/06/2022 Patient depressed and anxious tried to review cognitive behavioral perspectives ways to emotionally manage current situational factors.? Patient has for an extended period of time had great deal of difficulty with any emotional a mental coping strategies.? Will and lorazepam p.r.n. 0.5 mg to help with anxiety trying get clarity from DTS regarding transition to fpc setting positive reinforcement for patient's efforts at physical conditioning becomes demoralized easily denies active self-harm 11/07 continue tx. 11/08 no changes, pt had unwitnessed fall and hit head, head CT negative 11/09 no changes 11/10 no changes 11/11 no changes 11/12/22 acute med w/u neg incentive spirometer cont medication cbt skills cont pt/ot Reason for contiued inpatient stay Substantial Risk for: inability to function, rapid decompensation and med/psych decompensation Time Spent With Patient Time: Total time managing care of this patient today ____ minutes.
[2022-11-12 09:46] LABS: Adenovirus PCR Not Detected (Not Detect.); Bordetella parapertussis PCR Not Detected (Not Detect.); Bordetella pertussis PCR Not Detected (Not Detect.); Chlamydia pneumoniae PCR Not Detected (Not Detect.); Coronavirus 229E PCR Not Detected (Not Detect.); Coronavirus HKU1 PCR Not Detected (Not Detect.); Coronavirus NL63 PCR Not Detected (Not Detect.); Coronavirus OC43 PCR Not Detected (Not Detect.); Human metapneumovirus PCR Not Detected (Not Detect.); Influenza A PCR Not Detected (Not Detect.); Influenza B PCR Not Detected (Not Detect.); Mycoplasma pneumoniae PCR Not Detected (Not Detect.); Parainfluenza 1 PCR Not Detected (Not Detect.); Parainfluenza 2 PCR Not Detected (Not Detect.); Parainfluenza 3 PCR Not Detected (Not Detect.); Rhino/Enterovirus PCR Not Detected (Not Detect.); SARS-CoV-2 PCR Not Detected (Not Detect.)
[2022-11-12 09:47] LABS: Parainfluenza 4 PCR Not Detected (Not Detect.); RSV PCR Not Detected (Not Detect.)
[2022-11-12 09:48] LABS: Ammonia 49 umol/L (13-55)
[2022-11-12 09:55] LABS: Alanine Aminotransferase 48 U/L (0-40); Albumin Level 4.6 g/dL (3.5-5.0); Alkaline Phosphatase 111 U/L (39-117); Anion Gap 18 (12-20); Aspartate Amino Transferase 27 U/L (5-37); Bilirubin Total 0.3 mg/dL (0.0-1.0); Blood Urea Nitrogen 15 mg/dL (9-16); Calcium 9.6 mg/dL (8.4-10.2); Carbon Dioxide 24 mmol/L (22-29); Chloride 101 mmol/L (96-108); Creatinine Clr Calc Pharmacy 77.8; Estimated Glomerular Filt Rate 60; Gamma Glutamyl Transpeptidase 104 U/L (11-51); Glucose Random 83 mg/dL (60-115); Potassium 3.8 mmol/L (3.3-5.1); Sodium 139 mmol/L (135-145); Total Protein 7.1 g/dL (6.5-8.0)
[2022-11-12] MEDS: polyethylene glycoL 3350 17 GM POWD.PACK PO (15:33)
[2022-11-12] MEDS: Acetaminophen 325 MG TABLET 650 MG PO (15:59)
--- NOTE | 2022-11-12 17:16 | PC.NURSE ---
Visible in milieu, requires assistance with adl's. Infrequent non-productive cough noted. Respiratory panel negative. Chest xray/MRI brain done, Dr Haskins to review results. Urine sample needed for u/a, unable to obtain at present time. amador Hester. Rates depression #8 and anxiety #10 on scale 1-10(10 worse). Compliant with all meds. Meds scheduled to assist with depression/anxiety. Denies AH/VH, denies SI/HI. Stated, I have felt better. I don't know how much more of this I can take. It is feeding my depression Physically states his balance, mobility and ability to do things on his own are off.
[2022-11-12 18:00] VITALS: BP 119/61; PULSE 68; RESP 16; TEMP 36.4; O2SAT 95
[2022-11-12] MEDS: QUEtiapine Fumarate 50 MG TABLET 150 MG PO (21:18)
[2022-11-12] MEDS: traZODone HCL 100 MG TABLET 200 MG PO (21:20)
[2022-11-12] MEDS: Nortriptyline HCl 25 MG CAPSULE 100 MG PO (21:21)
[2022-11-12] MEDS: LORazepam 1 MG TABLET PO (21:22)
[2022-11-12] MEDS: Melatonin 3 MG TABLET 9 MG PO (21:23)
[2022-11-12] MEDS: Docusate Sodium 100 MG CAPSULE PO (21:26)
[2022-11-12] MEDS: Latanoprost 0.005 % Ophth Sol 2.5 ML DROPS 1 DROP EYE-BOTH (21:33)
[2022-11-13] MEDS: guaiFENesin DM 200/20/10 ML 10 ML SYRUP PO ×2 (00:26→05:56)
[2022-11-13] MEDS: traZODone HCL 50 MG TABLET PO (00:26)
[2022-11-13] MEDS: hydrOXYzine HCL 25 MG TABLET PO (00:26)
[2022-11-13] MEDS: LORazepam 0.5 MG TABLET PO (03:56)
[2022-11-13 04:55] LABS: Appearance Urine Clear; Color Urine Yellow; Glucose Urine UA Negative (Negative); Leukocyte Esterase Urine Negative (Negative); Nitrite Urine Negative (Negative); Urine Blood Negative (Negative); Urine Ketones Negative (Negative); Urine Protein Negative (Neg-Trace)
[2022-11-13] MEDS: Omeprazole 20 MG CAPSULE.DR PO ×2 (05:56→17:48)
[2022-11-13 06:00] VITALS: BP 118/60; PULSE 70; RESP 18; TEMP 36.7; O2SAT 98
[2022-11-13 07:55] LABS: MANUAL DIFF FLAG NO
[2022-11-13 07:59] LABS: Basophils Percent Auto 0.7 % (0-2); Eosinophils Absolute Auto 0.4 X10*3/uL (0.0-0.4); Eosinophils Percent Auto 6.5 % (0-4); Hematocrit 40.6 % (42.0-52.0); Hemoglobin 13.3 g/dl (14.0-18.0); Imm Gran Abs Auto 0.06 X10*3/uL (0.00-0.03); Lymphocytes Absolute Auto 1.8 X10*3/uL (1.2-4.9); Lymphocytes Percent Auto 31.1 % (20-40); Mean Corpuscular HGB Conc 32.8 g/dl (31.0-36.0); Mean Corpuscular Volume 94.6 fL (80.0-98.0); Mean Platelet Volume 9.3 fL (9.4-12.4); Monocytes Absolute Auto 0.6 X10*3/uL (0.1-1.2); Monocytes Percent Auto 9.4 % (2-11); Neutrophils Percent Auto 51.3 % (45-73); Platelet Count 180 X10*3/uL (160-400); Red Blood Count 4.29 X10*6/uL (4.60-5.80); Red Cell Distribution Width 11.8 % (11.0-16.0); White Blood Count 5.9 X10*3/uL (4.8-10.8)
[2022-11-13] MEDS: Naltrexone HCl 50 MG TABLET PO (10:37)
[2022-11-13] MEDS: lisinopriL 20 MG TABLET PO (10:37)
[2022-11-13] MEDS: calcium polycarbophiL TABLET 1 TAB PO (10:37)
[2022-11-13] MEDS: Escitalopram Oxalate 5 MG TABLET 15 MG PO (10:37)
[2022-11-13] MEDS: QUEtiapine Fumarate 50 MG TABLET PO ×2 (10:38→17:48)
[2022-11-13] MEDS: Gabapentin 300 MG CAPSULE 600 MG PO ×3 (10:38→20:52)
[2022-11-13] MEDS: Pramipexole Di-HCL 0.25 MG TABLET PO ×3 (10:38→20:53)
[2022-11-13] MEDS: Cholecalciferol (Vitamin D3) 10 MCG TABLET PO (10:38)
[2022-11-13] MEDS: lamoTRIgine 100 MG TABLET 200 MG PO ×2 (10:38→20:52)
[2022-11-13] MEDS: Tamsulosin HCL 0.4 MG CAPSULE PO (10:38)
[2022-11-13] MEDS: Multivitamin TABLET 1 TAB PO (10:38)
[2022-11-13] MEDS: amLODIPine Besylate 5 MG TABLET PO (10:38)
[2022-11-13] MEDS: Finasteride 5 MG TABLET PO (10:39)
[2022-11-13] MEDS: Mineral Oil/Petrolatum,White 106 GM Tube 1 APPL TOPICAL (10:48)
[2022-11-13] MEDS: Lidocaine 5 % Ointment 35 GM 1 APPL TOPICAL ×2 (10:48→20:53)
--- NOTE | 2022-11-13 16:04 | HO.PSYCHPN ---
Subjective Subjective Date of Service: 11/13/22 Reason For Visit: Depression aggression Subjective Notes: Conditional Voluntary Interim History: The nursing staff reported the patient had been compliant with treatment. The medical workup came back negative no evidence of new respiratory problems, MRI within normal limits no major changes. On interview the patient reports depression. No changes in current mental status. Mental Status Exam Mental Status Exam Patient Appearance: Appropriate Patient Orientation: Person and Situation Level of Consciousness: Awake and Appropriate Patient Behavior: Guarded and Passive Mood Description: Withdrawn Affect Description: Constricted Patient Cognition Impaired: Yes Ability to Follow Directions: Good Speech Pattern: Clear Hallucinations: None Delusions: Not Present Thought Content: positive for [place] and positive for Linear Judgement: Fair Diagnostics Vital Signs (24Hr): Vital Signs - 24 hr 11/12/22 18:00 11/13/22 06:00 Temperature 97.6 F 98.0 F Pulse Rate 68 70 Respiratory Rate 16 18 Blood Pressure 119/61 118/60 Pulse Oximetry 95 98 Oxygen Delivery Method Room Air BMI result Body Mass Index 31.7 Labs Results: 11/13/22 07:43 11/12/22 09:32 Labs: Laboratory Results - last 48 hr 11/12/22 11/12/22 11/12/22 05:55 09:32 09:32 WBC RBC Hgb Hct MCV MCH MCHC RDW Plt Count MPV Immature Gran % (Auto) Neut % (Auto) Lymph % (Auto) [place] % (Auto) Eos % (Auto) Baso % (Auto) Lymph # (Auto) [place] # (Auto) Eos # (Auto) Baso # (Auto) Abs Immat Gran (auto) Absolute Neuts (auto) Absolute Nucleated RBC Nucleated RBC % (auto) Sodium 139 Potassium 3.8 Chloride 101 Carbon Dioxide 24 Anion Gap 18 BUN 15 Creatinine 1.21 Estim Creat Clear Calc 77.8 Estimated GFR 60 Random Glucose 83 Calcium 9.6 Total Bilirubin 0.3 GGT 104 H AST 27 ALT 48 H Alkaline Phosphatase 111 Ammonia Total Protein 7.1 Albumin 4.6 Urine Color Urine Appearance Urine pH Ur Specific [place] Urine Protein Urine Glucose (UA) Urine Ketones Urine Blood Urine Nitrite Ur Leukocyte Esterase Respiratory Panel [place] See Note Adenovirus (Rapid PCR) Not Detected B.pert (TEM-PCR) Not Detected B.parapertussis DNA PCR Not Detected C. pneumoniae DNA (PCR) Not Detected Coronavirus OC43 (PCR) Not Detected Coronavirus HKU1 (PCR) Not Detected Coronavirus 229E (PCR) Not Detected Coronavirus NL63 (PCR) Not Detected Human Metapneumovir PCR Not Detected Influenza A (RT-PCR) Not Detected Influenza B (RT-PCR) Not Detected M. pneumoniae (PCR) Not Detected Parainfluenza 1 (PCR) Not Detected Parainfluenza 2 (PCR) Not Detected Parainfluenza 3 (PCR) Not Detected Parainfluenza 4 (PCR) Not Detected RSV (PCR) Not Detected Entero/Rhino (PCR) Not Detected SARS-CoV-2 RNA (RT-PCR) Not Detected 11/12/22 11/13/22 11/13/22 09:32 04:45 07:43 WBC 5.9 RBC 4.29 L Hgb 13.3 L Hct 40.6 L MCV 94.6 MCH 31.0 MCHC 32.8 RDW 11.8 Plt Count 180 MPV 9.3 L Immature Gran % (Auto) 1.0 H Neut % (Auto) 51.3 Lymph % (Auto) 31.1 [place] % (Auto) 9.4 Eos % (Auto) 6.5 H Baso % (Auto) 0.7 Lymph # (Auto) 1.8 [place] # (Auto) 0.6 Eos # (Auto) 0.4 Baso # (Auto) 0.0 Abs Immat Gran (auto) 0.06 H Absolute Neuts (auto) 3.0 Absolute Nucleated RBC 0.000 Nucleated RBC % (auto) 0.0 Sodium Potassium Chloride Carbon Dioxide Anion Gap BUN Creatinine Estim Creat Clear Calc Estimated GFR Random Glucose Calcium Total Bilirubin GGT AST ALT Alkaline Phosphatase Ammonia 49 Total Protein Albumin Urine Color Yellow Urine Appearance Clear Urine pH 6.0 Ur Specific [place] 1.010 Urine Protein Negative Urine Glucose (UA) Negative Urine Ketones Negative Urine Blood Negative Urine Nitrite Negative Ur Leukocyte Esterase Negative Respiratory Panel [place]ide Adenovirus (Rapid PCR) B.pert (TEM-PCR) B.parapertussis DNA PCR C. pneumoniae DNA (PCR) Coronavirus OC43 (PCR) Coronavirus HKU1 (PCR) Coronavirus 229E (PCR) Coronavirus NL63 (PCR) Human Metapneumovir PCR Influenza A (RT-PCR) Influenza B (RT-PCR) M. pneumoniae (PCR) Parainfluenza 1 (PCR) Parainfluenza 2 (PCR) Parainfluenza 3 (PCR) Parainfluenza 4 (PCR) RSV (PCR) Entero/Rhino (PCR) SARS-CoV-2 RNA (RT-PCR) Imaging Radiology Impressions: ITS Impressions Chest X-Ray 10/20/22 15:45 IMPRESSION: 1. Low lung volumes with bibasilar linear disc atelectasis versus scarring. 2. No airspace consolidation or effusion. Head CT 11/08/22 12:29 IMPRESSION: No acute intracranial hemorrhage or territorial infarction. Stable chronic postoperative changes with gliosis and encephalomalacia in the right frontal and right temporal lobes. Ex vacuo dilatation of the ventricles and diffuse parenchymal volume loss. Right-sided craniotomy changes. Chest X-Ray 11/12/22 10:32 IMPRESSION: Hypoexpanded lungs with bibasilar platelike atelectasis. Brain MRI 11/12/22 13:15 IMPRESSION: 1. No demonstrated acute intracranial abnormalities. 2. Chronic encephalomalacia of the right temporal, right frontal, and left occipital lobes. Small regions of chronic encephalomalacia in the parasagittal aspects of the bilateral parietal lobes. Moderate underlying microangiopathy and generalized cerebral volume loss. Medications Medications Current Medications Acetaminophen (Acetaminophen 325 Mg Tablet) 650 mg PO Q6H PRN PRN Reason: Headache/Pain Mild Scale (1-3) Last Admin: 11/12/22 15:59 Dose: 650 mg Al Hydroxide/Mg Hydroxide (Magnesium Hydrox/Alum Hydrox 30 Ml Oral.Susp) 30 ml PO Q6H PRN PRN Reason: Heartburn/Nausea Last Admin: 10/19/22 18:47 Dose: 30 ml Albuterol Sulfate (Albuterol Sulfate 90 Mcg 8 Gm Inhaler) 2 puff INHALE Q6H PRN PRN Reason: Wheezing Amlodipine Besylate (Amlodipine Besylate 5 Mg Tablet) 5 mg PO DAILY [facility]; Protocol Last Admin: 11/13/22 10:38 Dose: 5 mg Benzocaine (Throat Lozenge, Medicated Lozenge) 1 lozenge MUCOUS MEM Q2H PRN PRN Reason: Sore Throat Last Admin: 11/12/22 03:08 Dose: 1 lozenge Calcium Polycarbophil (Calcium Polycarbophil Tablet) 1 tab PO DAILY [facility] Last Admin: 11/13/22 10:37 Dose: 1 tab Docusate Sodium (Docusate Sodium 100 Mg Capsule) 100 mg PO DAILY PRN PRN Reason: constipation Last Admin: 11/12/22 21:26 Dose: 100 mg Escitalopram Oxalate (Escitalopram Oxalate 5 Mg Tablet) 15 mg PO DAILY [facility] Last Admin: 11/13/22 10:37 Dose: 15 mg Finasteride (Finasteride 5 Mg Tablet) 5 mg PO DAILY [facility] Last Admin: 11/13/22 10:39 Dose: 5 mg Gabapentin (Gabapentin 300 Mg Capsule) 600 mg PO TID [facility] Last Admin: 11/13/22 15:12 Dose: 600 mg Guaifenesin/Dextromethorphan (Guaifenesin Dm 200/20/10 Ml 10 Ml Syrup) 10 ml PO Q4H PRN PRN Reason: Cough Hydroxyzine HCl (Hydroxyzine Hcl 25 Mg Tablet) 25 mg PO Q6H PRN PRN Reason: Anxiety Last Admin: 11/13/22 00:26 Dose: 25 mg Lamotrigine (Lamotrigine 100 Mg Tablet) 200 mg PO BID [facility] Last Admin: 11/13/22 10:38 Dose: 200 mg Latanoprost (Latanoprost 0.005 % Ophth No 2.5 Ml Drops) 1 drop EYE-BOTH BEDTIME [facility] Last Admin: 11/12/22 21:33 Dose: 1 drop Lidocaine (Lidocaine 5 % Ointment 35 Gm) 1 appl TOPICAL QID [facility] Last Admin: 11/13/22 15:11 Dose: Not Given Lisinopril (Lisinopril 20 Mg Tablet) 20 mg PO DAILY [facility]; Protocol Last Admin: 11/13/22 10:37 Dose: 20 mg Lorazepam (Lorazepam 0.5 Mg Tablet) 0.5 mg PO Q8H PRN PRN Reason: Anxiety Last Admin: 11/13/22 03:56 Dose: 0.5 mg Lorazepam (Lorazepam 1 Mg Tablet) 1 mg PO BEDTIME [facility] Last Admin: 11/12/22 21:22 Dose: 1 mg Magnesium Hydroxide (Milk Of Magnesia 30 Ml Oral.Susp) 30 ml PO DAILY PRN PRN Reason: Constipation Last Admin: 10/21/22 22:46 Dose: 30 ml Melatonin (Melatonin 3 Mg Tablet) 9 mg PO BEDTIME [facility] Last Admin: 11/12/22 21:23 Dose: 9 mg Multi-Ingred Cream/Lotion/Oil/Oint (Mineral Oil/Petrolatum,White 106 Gm Tube) 1 appl TOPICAL BID [facility]; Protocol Last Admin: 11/13/22 10:48 Dose: 1 appl Multivitamins/Vitamin C (Multivitamin Tablet) 1 tab PO DAILY [facility] Last Admin: 11/13/22 10:38 Dose: 1 tab Naltrexone HCl (Naltrexone Hcl 50 Mg Tablet) 50 mg PO DAILY [facility] Last Admin: 11/13/22 10:37 Dose: 50 mg Nortriptyline HCl (Nortriptyline Hcl 25 Mg Capsule) 100 mg PO BEDTIME [facility] Last Admin: 11/12/22 21:21 Dose: 100 mg Nystatin (Nystatin Powder 15 Gm Bottle) 1 appl TOPICAL BID [facility] Last Admin: 11/13/22 10:48 Dose: Not Given Omeprazole (Omeprazole 20 Mg Capsule.Dr) 20 mg PO BID@0630,1630 [facility] Last Admin: 11/13/22 05:56 Dose: 20 mg Ondansetron HCl (Ondansetron Odt 4 Mg Tab.Rapdis) 4 mg TRANSLINGU Q6H PRN PRN Reason: Nausea and Vomiting Oxybutynin Chloride (Oxybutynin Chloride Er 5 Mg Tab.Er.24) 10 mg PO DAILY [facility] Last Admin: 11/13/22 10:37 Dose: 10 mg Polyethylene Glycol (Polyethylene Glycol 3350 17 Gm Powd.Pack) 17 gm PO DAILY@1600 [facility] Last Admin: 11/12/22 15:33 Dose: 17 gm Pramipexole Dihydrochloride (Pramipexole Di-Hcl 0.25 Mg Tablet) 0.25 mg PO TID [facility] Last Admin: 11/13/22 15:12 Dose: 0.25 mg Psyllium Hydrophilic Mucilloid (Psyllium Seed 3.4 Gm Powd.Pack) 3.4 gm PO DAILY [facility] Last Admin: 11/13/22 10:39 Dose: 3.4 gm Quetiapine Fumarate (Quetiapine Fumarate 25 Mg Tablet) 25 mg PO Q4H PRN PRN Reason: Anxiety Last Admin: 11/01/22 14:40 Dose: 25 mg Quetiapine Fumarate (Quetiapine Fumarate 50 Mg Tablet) 50 mg PO BID@0900,1700 [facility] Last Admin: 11/13/22 10:38 Dose: 50 mg Quetiapine Fumarate (Quetiapine Fumarate 50 Mg Tablet) 150 mg PO BEDTIME [facility] Last Admin: 11/12/22 21:18 Dose: 150 mg Tamsulosin HCl (Tamsulosin Hcl 0.4 Mg Capsule) 0.4 mg PO DAILY [facility] Last Admin: 11/13/22 10:38 Dose: 0.4 mg Trazodone HCl (Trazodone Hcl 100 Mg Tablet) 200 mg PO BEDTIME [facility] Last Admin: 11/12/22 21:20 Dose: 200 mg Trazodone HCl (Trazodone Hcl 50 Mg Tablet) 50 mg PO BEDTIME PRN PRN Reason: Insomnia Last Admin: 11/13/22 00:26 Dose: 50 mg Vitamin D (Cholecalciferol (Vitamin D3) 10 Mcg Tablet) 10 mcg PO DAILY [facility] Last Admin: 11/13/22 10:38 Dose: 10 mcg Allergies Allergies Allergy/AdvReac Type Severity Reaction Status Date / Time fentanyl [FENTANYL] Allergy Intermediate unknown Verified 04/08/22 07:00 Assessment & Plan Assessment & Plan (1) Acute head injury without loss of consciousness: Status: Acute Code(s): S09.90XA - Unspecified injury of head, initial encounter Plan The patient is a 67-year-old male, , 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 At this moment also, he has problems of housing since he will not be able to go back to his regular f[facility].? The patient has a long history of alcohol use disorder that he was not able to process or work on it.? Plan 1. Continue with the same treatment.? 2. We will work with the social service manager and DDS for a proper discharge planning.? 3. Continue with recommendations of Wound Care. 4. Increase Seroquel up to 150 mg po qhs. 10/30/22 restart lorazepam 1 hs prn insomnia norterip inc 100 hs level in 50 s monitor ekg 11/01 continue current tx plan 11/02/22- Bedside Swallow eval. s/p choking episode on 11/01. 2021 Increase Lexapro encourage CBT skills need supportive coaching patient increasingly hopeless helpless denies active self-harm check nortriptyline level 11/05/2022 Check nortriptyline level patient on Seroquel nortriptyline Lexapro.? Needs much reassurance and support the has difficulty interacting at times secondary to a hopelessness irritability passive SI.? Patient has having difficulty maintaining his posture in his chair unclear why this is happening for discuss safety issues with nursing will need OT and potentially Pt input? 11/06/2022 Patient depressed and anxious tried to review cognitive behavioral perspectives ways to emotionally manage current situational factors.? Patient has for an extended period of time had great deal of difficulty with any emotional a mental coping strategies.? Will and lorazepam p.r.n. 0.5 mg to help with anxiety trying get clarity from DTS regarding transition to [facility] setting positive reinforcement for patient's efforts at physical conditioning becomes demoralized easily denies active self-harm 11/07 continue tx. 11/08 no changes, pt had unwitnessed fall and hit head, head CT negative 11/09 no changes 11/10 no changes 11/11 no changes 11/12/22 acute med w/u neg incentive spirometer cont medication cbt skills cont pt/ot 11/12 medical workout came back negative. No changes in current treatment Reason for contiued inpatient stay Substantial Risk for: inability to function, rapid decompensation and med/psych decompensation Time Spent With Patient Time: Total time managing care of this patient today ____ minutes.
[2022-11-13] MEDS: polyethylene glycoL 3350 17 GM POWD.PACK PO (17:48)
[2022-11-13 19:19] VITALS: BP 127/69; PULSE 66; RESP 18; TEMP 36.2; O2SAT 98
[2022-11-13] MEDS: LORazepam 1 MG TABLET PO (20:52)
[2022-11-13] MEDS: QUEtiapine Fumarate 50 MG TABLET 150 MG PO (20:52)
[2022-11-13] MEDS: Melatonin 3 MG TABLET 9 MG PO (20:52)
[2022-11-13] MEDS: traZODone HCL 100 MG TABLET 200 MG PO (20:52)
[2022-11-13] MEDS: Nortriptyline HCl 25 MG CAPSULE 100 MG PO (20:53)
[2022-11-13] MEDS: Latanoprost 0.005 % Ophth Sol 2.5 ML DROPS 1 DROP EYE-BOTH (20:53)
[2022-11-14] MEDS: LORazepam 0.5 MG TABLET PO (00:24)
[2022-11-14] MEDS: Acetaminophen 325 MG TABLET 650 MG PO ×2 (00:24→16:11)
[2022-11-14] MEDS: traZODone HCL 50 MG TABLET PO (00:24)
[2022-11-14] MEDS: QUEtiapine Fumarate 25 MG TABLET PO (00:24)
[2022-11-14 06:00] VITALS: BP 155/84; PULSE 75; RESP 18; TEMP 36.4; O2SAT 95
[2022-11-14] MEDS: calcium polycarbophiL TABLET 1 TAB PO (08:43)
[2022-11-14] MEDS: lisinopriL 20 MG TABLET PO (08:43)
[2022-11-14] MEDS: QUEtiapine Fumarate 50 MG TABLET PO ×2 (08:43→16:11)
[2022-11-14] MEDS: Escitalopram Oxalate 5 MG TABLET 15 MG PO (08:43)
[2022-11-14] MEDS: Finasteride 5 MG TABLET PO (08:43)
[2022-11-14] MEDS: Naltrexone HCl 50 MG TABLET PO (08:43)
[2022-11-14] MEDS: Cholecalciferol (Vitamin D3) 10 MCG TABLET PO (08:44)
[2022-11-14] MEDS: Gabapentin 300 MG CAPSULE 600 MG PO ×3 (08:44→20:48)
[2022-11-14] MEDS: Tamsulosin HCL 0.4 MG CAPSULE PO (08:44)
[2022-11-14] MEDS: Omeprazole 20 MG CAPSULE.DR PO ×2 (08:44→16:11)
[2022-11-14] MEDS: lamoTRIgine 100 MG TABLET 200 MG PO ×2 (08:44→20:49)
[2022-11-14] MEDS: Pramipexole Di-HCL 0.25 MG TABLET PO ×3 (08:46→20:48)
[2022-11-14] MEDS: Multivitamin TABLET 1 TAB PO (08:46)
[2022-11-14] MEDS: amLODIPine Besylate 5 MG TABLET PO (08:46)
[2022-11-14] MEDS: Lidocaine 5 % Ointment 35 GM 1 APPL TOPICAL ×2 (08:47→21:03)
[2022-11-14] MEDS: Mineral Oil/Petrolatum,White 106 GM Tube 1 APPL TOPICAL (08:53)
[2022-11-14] MEDS: polyethylene glycoL 3350 17 GM POWD.PACK PO (16:12)
[2022-11-14] MEDS: Melatonin 3 MG TABLET 9 MG PO (20:48)
[2022-11-14] MEDS: traZODone HCL 100 MG TABLET 200 MG PO (20:49)
[2022-11-14] MEDS: QUEtiapine Fumarate 50 MG TABLET 150 MG PO (20:49)
[2022-11-14] MEDS: LORazepam 1 MG TABLET PO (20:49)
[2022-11-14] MEDS: Nortriptyline HCl 25 MG CAPSULE 100 MG PO (20:49)
[2022-11-14] MEDS: Nystatin Powder 15 GM BOTTLE 1 APPL TOPICAL (20:49)
[2022-11-14] MEDS: Docusate Sodium 100 MG CAPSULE PO (21:03)
[2022-11-14] MEDS: Latanoprost 0.005 % Ophth Sol 2.5 ML DROPS 1 DROP EYE-BOTH (21:03)
[2022-11-14 21:15] VITALS: BP 106/63; PULSE 66; RESP 14; TEMP 36.4; O2SAT 95
--- NOTE | 2022-11-14 21:25 | P.PNPSI_ITS ---
Subjective Subjective Date of Service: 11/14/22 Reason For Visit: Depression aggression Subjective Notes: Conditional Voluntary Interim History: Patient continues to be depressed withdrawn difficulty maintaining a positive attitude somewhat lethargic at time Medication Compliance: Yes Mental Status Exam Mental Status Exam Patient Appearance: Appropriate Patient Orientation: Person and Situation Level of Consciousness: Awake and Appropriate Patient Behavior: Guarded and Passive Mood Description: Withdrawn Affect Description: Constricted Patient Cognition Impaired: Yes Ability to Follow Directions: Good Speech Pattern: Clear Hallucinations: None Delusions: Not Present Thought Content: positive for [place] and positive for Linear Depressive Symptoms: Increased Anxiety, Increased Irritability, Sleeping More Than Usual and Feelings of Worthlessness Judgement: Fair Diagnostics Vital Signs (24Hr): Vital Signs - 24 hr 11/14/22 21:15 11/14/22 06:00 Temperature 97.5 F 97.5 F Pulse Rate 66 75 Respiratory Rate 14 18 Blood Pressure 106/63 155/84 H Pulse Oximetry 95 95 Oxygen Delivery Method Room Air Room Air BMI result Body Mass Index 31.7 Labs Results: 11/13/22 07:43 11/12/22 09:32 Labs: Laboratory Results - last 48 hr 11/13/22 11/13/22 04:45 07:43 WBC 5.9 RBC 4.29 L Hgb 13.3 L Hct 40.6 L MCV 94.6 MCH 31.0 MCHC 32.8 RDW 11.8 Plt Count 180 MPV 9.3 L Immature Gran % (Auto) 1.0 H Neut % (Auto) 51.3 Lymph % (Auto) 31.1 [place] % (Auto) 9.4 Eos % (Auto) 6.5 H Baso % (Auto) 0.7 Lymph # (Auto) 1.8 [place] # (Auto) 0.6 Eos # (Auto) 0.4 Baso # (Auto) 0.0 Abs Immat Gran (auto) 0.06 H Absolute Neuts (auto) 3.0 Absolute Nucleated RBC 0.000 Nucleated RBC % (auto) 0.0 Urine Color Yellow Urine Appearance Clear Urine pH 6.0 Ur Specific [place] 1.010 Urine Protein Negative Urine Glucose (UA) Negative Urine Ketones Negative Urine Blood Negative Urine Nitrite Negative Ur Leukocyte Esterase Negative Imaging Radiology Impressions: ITS Impressions Chest X-Ray 10/20/22 15:45 IMPRESSION: 1. Low lung volumes with bibasilar linear disc atelectasis versus scarring. 2. No airspace consolidation or effusion. Head CT 11/08/22 12:29 IMPRESSION: No acute intracranial hemorrhage or territorial infarction. Stable chronic postoperative changes with gliosis and encephalomalacia in the right frontal and right temporal lobes. Ex vacuo dilatation of the ventricles and diffuse parenchymal volume loss. Right-sided craniotomy changes. Chest X-Ray 11/12/22 10:32 IMPRESSION: Hypoexpanded lungs with bibasilar platelike atelectasis. Brain MRI 11/12/22 13:15 IMPRESSION: 1. No demonstrated acute intracranial abnormalities. 2. Chronic encephalomalacia of the right temporal, right frontal, and left occipital lobes. Small regions of chronic encephalomalacia in the parasagittal aspects of the bilateral parietal lobes. Moderate underlying microangiopathy and generalized cerebral volume loss. Chest X-Ray 11/14/22 15:52 IMPRESSION: Low lung volumes, bibasilar subsegmental atelectasis and slight elevation of the right hemidiaphragm similar to previous exam. Medications Medications Current Medications Acetaminophen (Acetaminophen 325 Mg Tablet) 650 mg PO Q6H PRN PRN Reason: Headache/Pain Mild Scale (1-3) Last Admin: 11/14/22 16:11 Dose: 650 mg Al Hydroxide/Mg Hydroxide (Magnesium Hydrox/Alum Hydrox 30 Ml Oral.Susp) 30 ml PO Q6H PRN PRN Reason: Heartburn/Nausea Last Admin: 10/19/22 18:47 Dose: 30 ml Albuterol Sulfate (Albuterol Sulfate 90 Mcg 8 Gm Inhaler) 2 puff INHALE Q6H PRN PRN Reason: Wheezing Amlodipine Besylate (Amlodipine Besylate 5 Mg Tablet) 5 mg PO DAILY [facility]; Protocol Last Admin: 11/14/22 08:46 Dose: 5 mg Benzocaine (Throat Lozenge, Medicated Lozenge) 1 lozenge MUCOUS MEM Q2H PRN PRN Reason: Sore Throat Last Admin: 11/12/22 03:08 Dose: 1 lozenge Calcium Polycarbophil (Calcium Polycarbophil Tablet) 1 tab PO DAILY [facility] Last Admin: 11/14/22 08:43 Dose: 1 tab Docusate Sodium (Docusate Sodium 100 Mg Capsule) 100 mg PO DAILY PRN PRN Reason: constipation Last Admin: 11/14/22 21:03 Dose: 100 mg Escitalopram Oxalate (Escitalopram Oxalate 5 Mg Tablet) 15 mg PO DAILY [facility] Last Admin: 11/14/22 08:43 Dose: 15 mg Finasteride (Finasteride 5 Mg Tablet) 5 mg PO DAILY [facility] Last Admin: 11/14/22 08:43 Dose: 5 mg Gabapentin (Gabapentin 300 Mg Capsule) 600 mg PO TID [facility] Last Admin: 11/14/22 20:48 Dose: 600 mg Guaifenesin/Dextromethorphan (Guaifenesin Dm 200/20/10 Ml 10 Ml Syrup) 10 ml PO Q4H PRN PRN Reason: Cough Hydroxyzine HCl (Hydroxyzine Hcl 25 Mg Tablet) 25 mg PO Q6H PRN PRN Reason: Anxiety Last Admin: 11/13/22 00:26 Dose: 25 mg Lamotrigine (Lamotrigine 100 Mg Tablet) 200 mg PO BID [facility] Last Admin: 11/14/22 20:49 Dose: 200 mg Latanoprost (Latanoprost 0.005 % Ophth No 2.5 Ml Drops) 1 drop EYE-BOTH BEDTIME [facility] Last Admin: 11/14/22 21:03 Dose: 1 drop Lidocaine (Lidocaine 5 % Ointment 35 Gm) 1 appl TOPICAL QID [facility] Last Admin: 11/14/22 21:03 Dose: 1 appl Lisinopril (Lisinopril 20 Mg Tablet) 20 mg PO DAILY [facility]; Protocol Last Admin: 11/14/22 08:43 Dose: 20 mg Lorazepam (Lorazepam 0.5 Mg Tablet) 0.5 mg PO Q8H PRN PRN Reason: Anxiety Last Admin: 11/14/22 00:24 Dose: 0.5 mg Lorazepam (Lorazepam 1 Mg Tablet) 1 mg PO BEDTIME [facility] Last Admin: 11/14/22 20:49 Dose: 1 mg Magnesium Hydroxide (Milk Of Magnesia 30 Ml Oral.Susp) 30 ml PO DAILY PRN PRN Reason: Constipation Last Admin: 10/21/22 22:46 Dose: 30 ml Melatonin (Melatonin 3 Mg Tablet) 9 mg PO BEDTIME [facility] Last Admin: 11/14/22 20:48 Dose: 9 mg Multi-Ingred Cream/Lotion/Oil/Oint (Mineral Oil/Petrolatum,White 106 Gm Tube) 1 appl TOPICAL BID [facility]; Protocol Last Admin: 11/14/22 21:03 Dose: Not Given Multivitamins/Vitamin C (Multivitamin Tablet) 1 tab PO DAILY [facility] Last Admin: 11/14/22 08:46 Dose: 1 tab Naltrexone HCl (Naltrexone Hcl 50 Mg Tablet) 50 mg PO DAILY [facility] Last Admin: 11/14/22 08:43 Dose: 50 mg Nortriptyline HCl (Nortriptyline Hcl 25 Mg Capsule) 100 mg PO BEDTIME [facility] Last Admin: 11/14/22 20:49 Dose: 100 mg Nystatin (Nystatin Powder 15 Gm Bottle) 1 appl TOPICAL BID [facility] Last Admin: 11/14/22 20:49 Dose: 1 appl Omeprazole (Omeprazole 20 Mg Capsule.Dr) 20 mg PO BID@0630,1630 [facility] Last Admin: 11/14/22 16:11 Dose: 20 mg Ondansetron HCl (Ondansetron Odt 4 Mg Tab.Rapdis) 4 mg TRANSLINGU Q6H PRN PRN Reason: Nausea and Vomiting Oxybutynin Chloride (Oxybutynin Chloride Er 5 Mg Tab.Er.24) 10 mg PO DAILY [facility] Last Admin: 11/14/22 08:43 Dose: 10 mg Polyethylene Glycol (Polyethylene Glycol 3350 17 Gm Powd.Pack) 17 gm PO DAILY@1600 [facility] Last Admin: 11/14/22 16:12 Dose: 17 gm Pramipexole Dihydrochloride (Pramipexole Di-Hcl 0.25 Mg Tablet) 0.25 mg PO TID [facility] Last Admin: 11/14/22 20:48 Dose: 0.25 mg Psyllium Hydrophilic Mucilloid (Psyllium Seed 3.4 Gm Powd.Pack) 3.4 gm PO DAILY [facility] Last Admin: 11/14/22 08:47 Dose: 3.4 gm Quetiapine Fumarate (Quetiapine Fumarate 25 Mg Tablet) 25 mg PO Q4H PRN PRN Reason: Anxiety Last Admin: 11/14/22 00:24 Dose: 25 mg Quetiapine Fumarate (Quetiapine Fumarate 50 Mg Tablet) 50 mg PO BID@0900,1700 [facility] Last Admin: 11/14/22 16:11 Dose: 50 mg Quetiapine Fumarate (Quetiapine Fumarate 50 Mg Tablet) 150 mg PO BEDTIME [facility] Last Admin: 11/14/22 20:49 Dose: 150 mg Tamsulosin HCl (Tamsulosin Hcl 0.4 Mg Capsule) 0.4 mg PO DAILY [facility] Last Admin: 11/14/22 08:44 Dose: 0.4 mg Trazodone HCl (Trazodone Hcl 100 Mg Tablet) 200 mg PO BEDTIME [facility] Last Admin: 11/14/22 20:49 Dose: 200 mg Trazodone HCl (Trazodone Hcl 50 Mg Tablet) 50 mg PO BEDTIME PRN PRN Reason: Insomnia Last Admin: 11/14/22 00:24 Dose: 50 mg Vitamin D (Cholecalciferol (Vitamin D3) 10 Mcg Tablet) 10 mcg PO DAILY [facility] Last Admin: 11/14/22 08:44 Dose: 10 mcg Allergies Allergies Allergy/AdvReac Type Severity Reaction Status Date / Time fentanyl [FENTANYL] Allergy Intermediate unknown Verified 04/08/22 07:00 Assessment & Plan Assessment & Plan (1) Acute head injury without loss of consciousness: Status: Acute Code(s): S09.90XA - Unspecified injury of head, initial encounter Plan The patient is a 67-year-old male, , 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 At this moment also, he has problems of housing since he will not be able to go back to his regular nursing home.? The patient has a long history of alcohol use disorder that he was not able to process or work on it.? Plan 1. Continue with the same treatment.? 2. We will work with the social media marketer and DDS for a proper discharge planning.? 3. Continue with recommendations of Wound Care. 4. Increase Seroquel up to 150 mg po qhs. 10/30/22 restart lorazepam 1 hs prn insomnia norterip inc 100 hs level in 50 s monitor ekg 11/01 continue current tx plan 11/02/22- Bedside Swallow eval. s/p choking episode on 11/01. 2021 Increase Lexapro encourage CBT skills need supportive coaching patient increasingly hopeless helpless denies active self-harm check nortriptyline level 11/05/2022 Check nortriptyline level patient on Seroquel nortriptyline Lexapro.? Needs much reassurance and support the has difficulty interacting at times secondary to a hopelessness irritability passive SI.? Patient has having difficulty maintaining his posture in his chair unclear why this is happening for discuss safety issues with nursing will need OT and potentially Pt input? 11/06/2022 Patient depressed and anxious tried to review cognitive behavioral perspectives ways to emotionally manage current situational factors.? Patient has for an extended period of time had great deal of difficulty with any emotional a mental coping strategies.? Will and lorazepam p.r.n. 0.5 mg to help with anxiety trying get clarity from DTS regarding transition to nursing home setting positive reinforcement for patient's efforts at physical conditioning becomes demoralized easily denies active self-harm 11/07 continue tx. 11/08 no changes, pt had unwitnessed fall and hit head, head CT negative 11/09 no changes 11/10 no changes 11/11 no changes 11/12/22 acute med w/u neg incentive spirometer cont medication cbt skills cont pt/ot 11/12 medical workout came back negative. No changes in current treatment 11/14/2022 Patient depressed withdrawn more fatigued Reason for contiued inpatient stay Substantial Risk for: harm to others, inability to function, rapid decompensation and med/psych decompensation Time Spent With Patient Time: Total time managing care of this patient today ____ minutes.
--- NOTE | 2022-11-14 21:43 | HO.PSYCHPN ---
Subjective Subjective Date of Service: 11/14/22 Reason For Visit: Depression aggression Subjective Notes: Conditional Voluntary Interim History: The patient is depressed withdrawn sad intermittently hopeless helpless Medication Compliance: Yes Attending Groups: Intermittent Review of Systems Basal atelectasis is on incentive spirometry Mental Status Exam Mental Status Exam Patient Appearance: Well Grooomed Patient Orientation: Person, Place, Time and Situation Level of Consciousness: Awake and Appropriate Mood Description: Depressed and Blunted Affect Description: Appropriate and Constricted Patient Cognition Impaired: No Ability to Follow Directions: Good Speech Pattern: Clear Memory Description: Intact Hallucinations: None Delusions: Not Present Thought Process: Intact and Goal Oriented Thought Content: positive for Goal Oriented, positive for Preoccupation, negative for Suicidal Ideation or negative for Homicidal Ideation Depressive Symptoms: Increased Anxiety, Increased Irritability, Hopelessness, Increased Fatigue, Loss of Energy and Difficulty Concentrating Judgement: Good Diagnostics Vital Signs (24Hr): Vital Signs - 24 hr 11/14/22 21:15 11/14/22 06:00 Temperature 97.5 F 97.5 F Pulse Rate 66 75 Respiratory Rate 14 18 Blood Pressure 106/63 155/84 H Pulse Oximetry 95 95 Oxygen Delivery Method Room Air Room Air BMI result Body Mass Index 31.7 Labs Results: 11/13/22 07:43 11/12/22 09:32 Labs: Laboratory Results - last 48 hr 11/13/22 11/13/22 04:45 07:43 WBC 5.9 RBC 4.29 L Hgb 13.3 L Hct 40.6 L MCV 94.6 MCH 31.0 MCHC 32.8 RDW 11.8 Plt Count 180 MPV 9.3 L Immature Gran % (Auto) 1.0 H Neut % (Auto) 51.3 Lymph % (Auto) 31.1 [place] % (Auto) 9.4 Eos % (Auto) 6.5 H Baso % (Auto) 0.7 Lymph # (Auto) 1.8 [place] # (Auto) 0.6 Eos # (Auto) 0.4 Baso # (Auto) 0.0 Abs Immat Gran (auto) 0.06 H Absolute Neuts (auto) 3.0 Absolute Nucleated RBC 0.000 Nucleated RBC % (auto) 0.0 Urine Color Yellow Urine Appearance Clear Urine pH 6.0 Ur Specific [place] 1.010 Urine Protein Negative Urine Glucose (UA) Negative Urine Ketones Negative Urine Blood Negative Urine Nitrite Negative Ur Leukocyte Esterase Negative Imaging Radiology Impressions: ITS Impressions Chest X-Ray 10/20/22 15:45 IMPRESSION: 1. Low lung volumes with bibasilar linear disc atelectasis versus scarring. 2. No airspace consolidation or effusion. Head CT 11/08/22 12:29 IMPRESSION: No acute intracranial hemorrhage or territorial infarction. Stable chronic postoperative changes with gliosis and encephalomalacia in the right frontal and right temporal lobes. Ex vacuo dilatation of the ventricles and diffuse parenchymal volume loss. Right-sided craniotomy changes. Chest X-Ray 11/12/22 10:32 IMPRESSION: Hypoexpanded lungs with bibasilar platelike atelectasis. Brain MRI 11/12/22 13:15 IMPRESSION: 1. No demonstrated acute intracranial abnormalities. 2. Chronic encephalomalacia of the right temporal, right frontal, and left occipital lobes. Small regions of chronic encephalomalacia in the parasagittal aspects of the bilateral parietal lobes. Moderate underlying microangiopathy and generalized cerebral volume loss. Chest X-Ray 11/14/22 15:52 IMPRESSION: Low lung volumes, bibasilar subsegmental atelectasis and slight elevation of the right hemidiaphragm similar to previous exam. Medications Medications Current Medications Acetaminophen (Acetaminophen 325 Mg Tablet) 650 mg PO Q6H PRN PRN Reason: Headache/Pain Mild Scale (1-3) Last Admin: 11/14/22 16:11 Dose: 650 mg Al Hydroxide/Mg Hydroxide (Magnesium Hydrox/Alum Hydrox 30 Ml Oral.Susp) 30 ml PO Q6H PRN PRN Reason: Heartburn/Nausea Last Admin: 10/19/22 18:47 Dose: 30 ml Albuterol Sulfate (Albuterol Sulfate 90 Mcg 8 Gm Inhaler) 2 puff INHALE Q6H PRN PRN Reason: Wheezing Amlodipine Besylate (Amlodipine Besylate 5 Mg Tablet) 5 mg PO DAILY [facility]; Protocol Last Admin: 11/14/22 08:46 Dose: 5 mg Benzocaine (Throat Lozenge, Medicated Lozenge) 1 lozenge MUCOUS MEM Q2H PRN PRN Reason: Sore Throat Last Admin: 11/12/22 03:08 Dose: 1 lozenge Calcium Polycarbophil (Calcium Polycarbophil Tablet) 1 tab PO DAILY [facility] Last Admin: 11/14/22 08:43 Dose: 1 tab Docusate Sodium (Docusate Sodium 100 Mg Capsule) 100 mg PO DAILY PRN PRN Reason: constipation Last Admin: 11/14/22 21:03 Dose: 100 mg Escitalopram Oxalate (Escitalopram Oxalate 5 Mg Tablet) 15 mg PO DAILY [facility] Last Admin: 11/14/22 08:43 Dose: 15 mg Finasteride (Finasteride 5 Mg Tablet) 5 mg PO DAILY [facility] Last Admin: 11/14/22 08:43 Dose: 5 mg Gabapentin (Gabapentin 300 Mg Capsule) 600 mg PO TID [facility] Last Admin: 11/14/22 20:48 Dose: 600 mg Guaifenesin/Dextromethorphan (Guaifenesin Dm 200/20/10 Ml 10 Ml Syrup) 10 ml PO Q4H PRN PRN Reason: Cough Hydroxyzine HCl (Hydroxyzine Hcl 25 Mg Tablet) 25 mg PO Q6H PRN PRN Reason: Anxiety Last Admin: 11/13/22 00:26 Dose: 25 mg Lamotrigine (Lamotrigine 100 Mg Tablet) 200 mg PO BID [facility] Last Admin: 11/14/22 20:49 Dose: 200 mg Latanoprost (Latanoprost 0.005 % Ophth No 2.5 Ml Drops) 1 drop EYE-BOTH BEDTIME [facility] Last Admin: 11/14/22 21:03 Dose: 1 drop Lidocaine (Lidocaine 5 % Ointment 35 Gm) 1 appl TOPICAL QID [facility] Last Admin: 11/14/22 21:03 Dose: 1 appl Lisinopril (Lisinopril 20 Mg Tablet) 20 mg PO DAILY [facility]; Protocol Last Admin: 11/14/22 08:43 Dose: 20 mg Lorazepam (Lorazepam 0.5 Mg Tablet) 0.5 mg PO Q8H PRN PRN Reason: Anxiety Last Admin: 11/14/22 00:24 Dose: 0.5 mg Lorazepam (Lorazepam 1 Mg Tablet) 1 mg PO BEDTIME [facility] Last Admin: 11/14/22 20:49 Dose: 1 mg Magnesium Hydroxide (Milk Of Magnesia 30 Ml Oral.Susp) 30 ml PO DAILY PRN PRN Reason: Constipation Last Admin: 10/21/22 22:46 Dose: 30 ml Melatonin (Melatonin 3 Mg Tablet) 9 mg PO BEDTIME [facility] Last Admin: 11/14/22 20:48 Dose: 9 mg Multi-Ingred Cream/Lotion/Oil/Oint (Mineral Oil/Petrolatum,White 106 Gm Tube) 1 appl TOPICAL BID [facility]; Protocol Last Admin: 11/14/22 21:03 Dose: Not Given Multivitamins/Vitamin C (Multivitamin Tablet) 1 tab PO DAILY [facility] Last Admin: 11/14/22 08:46 Dose: 1 tab Naltrexone HCl (Naltrexone Hcl 50 Mg Tablet) 50 mg PO DAILY [facility] Last Admin: 11/14/22 08:43 Dose: 50 mg Nortriptyline HCl (Nortriptyline Hcl 25 Mg Capsule) 100 mg PO BEDTIME [facility] Last Admin: 11/14/22 20:49 Dose: 100 mg Nystatin (Nystatin Powder 15 Gm Bottle) 1 appl TOPICAL BID [facility] Last Admin: 11/14/22 20:49 Dose: 1 appl Omeprazole (Omeprazole 20 Mg Capsule.Dr) 20 mg PO BID@0630,1630 [facility] Last Admin: 11/14/22 16:11 Dose: 20 mg Ondansetron HCl (Ondansetron Odt 4 Mg Tab.Rapdis) 4 mg TRANSLINGU Q6H PRN PRN Reason: Nausea and Vomiting Oxybutynin Chloride (Oxybutynin Chloride Er 5 Mg Tab.Er.24) 10 mg PO DAILY [facility] Last Admin: 11/14/22 08:43 Dose: 10 mg Polyethylene Glycol (Polyethylene Glycol 3350 17 Gm Powd.Pack) 17 gm PO DAILY@1600 [facility] Last Admin: 11/14/22 16:12 Dose: 17 gm Pramipexole Dihydrochloride (Pramipexole Di-Hcl 0.25 Mg Tablet) 0.25 mg PO TID [facility] Last Admin: 11/14/22 20:48 Dose: 0.25 mg Psyllium Hydrophilic Mucilloid (Psyllium Seed 3.4 Gm Powd.Pack) 3.4 gm PO DAILY [facility] Last Admin: 11/14/22 08:47 Dose: 3.4 gm Quetiapine Fumarate (Quetiapine Fumarate 25 Mg Tablet) 25 mg PO Q4H PRN PRN Reason: Anxiety Last Admin: 11/14/22 00:24 Dose: 25 mg Quetiapine Fumarate (Quetiapine Fumarate 50 Mg Tablet) 50 mg PO BID@0900,1700 [facility] Last Admin: 11/14/22 16:11 Dose: 50 mg Quetiapine Fumarate (Quetiapine Fumarate 50 Mg Tablet) 150 mg PO BEDTIME [facility] Last Admin: 11/14/22 20:49 Dose: 150 mg Tamsulosin HCl (Tamsulosin Hcl 0.4 Mg Capsule) 0.4 mg PO DAILY [facility] Last Admin: 11/14/22 08:44 Dose: 0.4 mg Trazodone HCl (Trazodone Hcl 100 Mg Tablet) 200 mg PO BEDTIME [facility] Last Admin: 11/14/22 20:49 Dose: 200 mg Trazodone HCl (Trazodone Hcl 50 Mg Tablet) 50 mg PO BEDTIME PRN PRN Reason: Insomnia Last Admin: 11/14/22 00:24 Dose: 50 mg Vitamin D (Cholecalciferol (Vitamin D3) 10 Mcg Tablet) 10 mcg PO DAILY [facility] Last Admin: 11/14/22 08:44 Dose: 10 mcg Allergies Allergies Allergy/AdvReac Type Severity Reaction Status Date / Time fentanyl [FENTANYL] Allergy Intermediate unknown Verified 04/08/22 07:00 Assessment & Plan Assessment & Plan (1) Acute head injury without loss of consciousness: Status: Acute Code(s): S09.90XA - Unspecified injury of head, initial encounter Plan The patient is a 67-year-old male, , 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 At this moment also, he has problems of housing since he will not be able to go back to his regular detention.? The patient has a long history of alcohol use disorder that he was not able to process or work on it.? Plan 1. Continue with the same treatment.? 2. We will work with the clinical social worker and DDS for a proper discharge planning.? 3. Continue with recommendations of Wound Care. 4. Increase Seroquel up to 150 mg po qhs. 10/30/22 restart lorazepam 1 hs prn insomnia norterip inc 100 hs level in 50 s monitor ekg 11/01 continue current tx plan 11/02/22- Bedside Swallow eval. s/p choking episode on 11/01. 2021 Increase Lexapro encourage CBT skills need supportive coaching patient increasingly hopeless helpless denies active self-harm check nortriptyline level 11/05/2022 Check nortriptyline level patient on Seroquel nortriptyline Lexapro.? Needs much reassurance and support the has difficulty interacting at times secondary to a hopelessness irritability passive SI.? Patient has having difficulty maintaining his posture in his chair unclear why this is happening for discuss safety issues with nursing will need OT and potentially Pt input? 11/06/2022 Patient depressed and anxious tried to review cognitive behavioral perspectives ways to emotionally manage current situational factors.? Patient has for an extended period of time had great deal of difficulty with any emotional a mental coping strategies.? Will and lorazepam p.r.n. 0.5 mg to help with anxiety trying get clarity from DTS regarding transition to detention setting positive reinforcement for patient's efforts at physical conditioning becomes demoralized easily denies active self-harm 11/07 continue tx. 11/08 no changes, pt had unwitnessed fall and hit head, head CT negative 11/09 no changes 11/10 no changes 11/11 no changes 11/12/22 acute med w/u neg incentive spirometer cont medication cbt skills cont pt/ot 11/12 medical workout came back negative. No changes in current treatment 11/14/2022 Patient depressed withdrawn more fatigued Patient educated on: medication risk/benefits, therapeutic strategies and medical condition Informed Consent: understands Reason for contiued inpatient stay Substantial Risk for: harm to self, rapid decompensation and med/psych decompensation Time Spent With Patient Time: Total time managing care of this patient today ____ minutes.
[2022-11-15] MEDS: Omeprazole 20 MG CAPSULE.DR PO ×2 (06:07→16:46)
[2022-11-15] MEDS: Pramipexole Di-HCL 0.25 MG TABLET PO ×3 (09:32→22:06)
[2022-11-15] MEDS: Gabapentin 300 MG CAPSULE 600 MG PO ×3 (09:32→22:08)
[2022-11-15] MEDS: lamoTRIgine 100 MG TABLET 200 MG PO ×2 (09:32→22:09)
[2022-11-15] MEDS: Naltrexone HCl 50 MG TABLET PO (09:32)
[2022-11-15] MEDS: Multivitamin TABLET 1 TAB PO (09:32)
[2022-11-15] MEDS: amLODIPine Besylate 5 MG TABLET PO (09:32)
[2022-11-15] MEDS: calcium polycarbophiL TABLET 1 TAB PO (09:32)
[2022-11-15] MEDS: Finasteride 5 MG TABLET PO (09:32)
[2022-11-15] MEDS: lisinopriL 20 MG TABLET PO (09:32)
[2022-11-15] MEDS: Tamsulosin HCL 0.4 MG CAPSULE PO (09:32)
[2022-11-15] MEDS: QUEtiapine Fumarate 50 MG TABLET PO ×2 (09:32→16:46)
[2022-11-15] MEDS: Escitalopram Oxalate 5 MG TABLET 15 MG PO (09:33)
[2022-11-15] MEDS: Cholecalciferol (Vitamin D3) 10 MCG TABLET PO (09:33)
--- NOTE | 2022-11-15 14:05 | P.PNPSI_ITS ---
Subjective Subjective Date of Service: 11/15/22 Reason For Visit: Depression aggression Interim History: Patient continues to be depressed withdrawn difficulty maintaining a positive attitude somewhat lethargic at time. He complains of anxiety 10 . He reports Addy is all over it (referring to Dr. 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 Review of Systems Review of Systems General: +fatigue. No fevers, malaise, unintentional weight loss HEENT: No blurred vision, diplopia Cardiovascular: No chest pain, palpitations, or leg edema Respiratory: No shortness of breath, wheezing, cough GI: No abdominal pain, nausea, vomiting, diarrhea : No dysuria, hematuria, increased urinary frequency, decreased urinary output MSK: No myalgia, back pain Neuro: +headache. No weakness, paresthesias Skin: No rashes or lesions Yes Unobtainable due to mental condition Mental Status Exam Mental Status Exam Narrative: Sad looking Patient Appearance: Disheveled and Perspiring Patient Orientation: Person, Place, Time and Situation Level of Consciousness: Awake and Alert Patient Behavior: Guarded, Anxious, Fatigued and Isolative Mood Description: Constricted, Depressed, Anxious, Labile and Apprehensive Affect Description: Constricted, Angry and Apprehensive Patient Cognition Impaired: Yes Ability to Follow Directions: Fair Speech Pattern: Spontaneous Speech Memory Description: Episodic Impaired Patient Appearance: Appropriate Patient Orientation: Person and Situation Level of Consciousness: Awake and Appropriate Patient Behavior: Guarded and Passive Mood Description: Withdrawn Affect Description: Constricted Patient Cognition Impaired: Yes Ability to Follow Directions: Good Speech Pattern: Clear Memory Description: Episodic Impaired Diagnostics Vital Signs (24Hr): Vital Signs - 24 hr 11/14/22 21:15 Temperature 97.5 F Pulse Rate 66 Respiratory Rate 14 Blood Pressure 106/63 Pulse Oximetry 95 Oxygen Delivery Method Room Air BMI result Body Mass Index 31.7 Labs Results: 11/13/22 07:43 11/12/22 09:32 Imaging Radiology Impressions: ITS Impressions Chest X-Ray 10/20/22 15:45 IMPRESSION: 1. Low lung volumes with bibasilar linear disc atelectasis versus scarring. 2. No airspace consolidation or effusion. Head CT 11/08/22 12:29 IMPRESSION: No acute intracranial hemorrhage or territorial infarction. Stable chronic postoperative changes with gliosis and encephalomalacia in the right frontal and right temporal lobes. Ex vacuo dilatation of the ventricles and diffuse parenchymal volume loss. Right-sided craniotomy changes. Chest X-Ray 11/12/22 10:32 IMPRESSION: Hypoexpanded lungs with bibasilar platelike atelectasis. Brain MRI 11/12/22 13:15 IMPRESSION: 1. No demonstrated acute intracranial abnormalities. 2. Chronic encephalomalacia of the right temporal, right frontal, and left occipital lobes. Small regions of chronic encephalomalacia in the parasagittal aspects of the bilateral parietal lobes. Moderate underlying microangiopathy and generalized cerebral volume loss. Chest X-Ray 11/14/22 15:52 IMPRESSION: Low lung volumes, bibasilar subsegmental atelectasis and slight elevation of the right hemidiaphragm similar to previous exam. Medications Medications Current Medications Acetaminophen (Acetaminophen 325 Mg Tablet) 650 mg PO Q6H PRN PRN Reason: Headache/Pain Mild Scale (1-3) Last Admin: 11/14/22 16:11 Dose: 650 mg Al Hydroxide/Mg Hydroxide (Magnesium Hydrox/Alum Hydrox 30 Ml Oral.Susp) 30 ml PO Q6H PRN PRN Reason: Heartburn/Nausea Last Admin: 10/19/22 18:47 Dose: 30 ml Albuterol Sulfate (Albuterol Sulfate 90 Mcg 8 Gm Inhaler) 2 puff INHALE Q6H PRN PRN Reason: Wheezing Amlodipine Besylate (Amlodipine Besylate 5 Mg Tablet) 5 mg PO DAILY [facility]; Protocol Last Admin: 11/15/22 09:32 Dose: 5 mg Benzocaine (Throat Lozenge, Medicated Lozenge) 1 lozenge MUCOUS MEM Q2H PRN PRN Reason: Sore Throat Last Admin: 11/12/22 03:08 Dose: 1 lozenge Calcium Polycarbophil (Calcium Polycarbophil Tablet) 1 tab PO DAILY [facility] Last Admin: 11/15/22 09:32 Dose: 1 tab Docusate Sodium (Docusate Sodium 100 Mg Capsule) 100 mg PO DAILY PRN PRN Reason: constipation Last Admin: 11/14/22 21:03 Dose: 100 mg Escitalopram Oxalate (Escitalopram Oxalate 5 Mg Tablet) 15 mg PO DAILY [facility] Last Admin: 11/15/22 09:33 Dose: 15 mg Finasteride (Finasteride 5 Mg Tablet) 5 mg PO DAILY [facility] Last Admin: 11/15/22 09:32 Dose: 5 mg Gabapentin (Gabapentin 300 Mg Capsule) 600 mg PO TID [facility] Last Admin: 11/15/22 09:32 Dose: 600 mg Guaifenesin/Dextromethorphan (Guaifenesin Dm 200/20/10 Ml 10 Ml Syrup) 10 ml PO Q4H PRN PRN Reason: Cough Hydroxyzine HCl (Hydroxyzine Hcl 25 Mg Tablet) 25 mg PO Q6H PRN PRN Reason: Anxiety Last Admin: 11/13/22 00:26 Dose: 25 mg Lamotrigine (Lamotrigine 100 Mg Tablet) 200 mg PO BID [facility] Last Admin: 11/15/22 09:32 Dose: 200 mg Latanoprost (Latanoprost 0.005 % Ophth No 2.5 Ml Drops) 1 drop EYE-BOTH BEDTIME [facility] Last Admin: 11/14/22 21:03 Dose: 1 drop Lidocaine (Lidocaine 5 % Ointment 35 Gm) 1 appl TOPICAL QID [facility] Last Admin: 11/15/22 14:22 Dose: Not Given Lisinopril (Lisinopril 20 Mg Tablet) 20 mg PO DAILY [facility]; Protocol Last Admin: 11/15/22 09:32 Dose: 20 mg Lorazepam (Lorazepam 0.5 Mg Tablet) 0.5 mg PO Q8H PRN PRN Reason: Anxiety Last Admin: 11/14/22 00:24 Dose: 0.5 mg Lorazepam (Lorazepam 1 Mg Tablet) 1 mg PO BEDTIME [facility] Last Admin: 11/14/22 20:49 Dose: 1 mg Magnesium Hydroxide (Milk Of Magnesia 30 Ml Oral.Susp) 30 ml PO DAILY PRN PRN Reason: Constipation Last Admin: 10/21/22 22:46 Dose: 30 ml Melatonin (Melatonin 3 Mg Tablet) 9 mg PO BEDTIME [facility] Last Admin: 11/14/22 20:48 Dose: 9 mg Multi-Ingred Cream/Lotion/Oil/Oint (Mineral Oil/Petrolatum,White 106 Gm Tube) 1 appl TOPICAL BID [facility]; Protocol Last Admin: 11/15/22 14:22 Dose: Not Given Multivitamins/Vitamin C (Multivitamin Tablet) 1 tab PO DAILY [facility] Last Admin: 11/15/22 09:32 Dose: 1 tab Naltrexone HCl (Naltrexone Hcl 50 Mg Tablet) 50 mg PO DAILY [facility] Last Admin: 11/15/22 09:32 Dose: 50 mg Nortriptyline HCl (Nortriptyline Hcl 25 Mg Capsule) 100 mg PO BEDTIME [facility] Last Admin: 11/14/22 20:49 Dose: 100 mg Nystatin (Nystatin Powder 15 Gm Bottle) 1 appl TOPICAL BID [facility] Last Admin: 11/15/22 09:38 Dose: Not Given Omeprazole (Omeprazole 20 Mg Capsule.Dr) 20 mg PO BID@0630,1630 [facility] Last Admin: 11/15/22 06:07 Dose: 20 mg Ondansetron HCl (Ondansetron Odt 4 Mg Tab.Rapdis) 4 mg TRANSLINGU Q6H PRN PRN Reason: Nausea and Vomiting Oxybutynin Chloride (Oxybutynin Chloride Er 5 Mg Tab.Er.24) 10 mg PO DAILY [facility] Last Admin: 11/15/22 09:33 Dose: 10 mg Polyethylene Glycol (Polyethylene Glycol 3350 17 Gm Powd.Pack) 17 gm PO CLAUDE LY@1600 [facility] Last Admin: 11/14/22 16:12 Dose: 17 gm Pramipexole Dihydrochloride (Pramipexole Di-Hcl 0.25 Mg Tablet) 0.25 mg PO TID [facility] Last Admin: 11/15/22 09:32 Dose: 0.25 mg Psyllium Hydrophilic Mucilloid (Psyllium Seed 3.4 Gm Powd.Pack) 3.4 gm PO DAILY [facility] Last Admin: 11/15/22 14:23 Dose: Not Given Quetiapine Fumarate (Quetiapine Fumarate 25 Mg Tablet) 25 mg PO Q4H PRN PRN Reason: Anxiety Last Admin: 11/14/22 00:24 Dose: 25 mg Quetiapine Fumarate (Quetiapine Fumarate 50 Mg Tablet) 50 mg PO BID@0900,1700 [facility] Last Admin: 11/15/22 09:32 Dose: 50 mg Quetiapine Fumarate (Quetiapine Fumarate 50 Mg Tablet) 150 mg PO BEDTIME [facility] Last Admin: 11/14/22 20:49 Dose: 150 mg Tamsulosin HCl (Tamsulosin Hcl 0.4 Mg Capsule) 0.4 mg PO DAILY [facility] Last Admin: 11/15/22 09:32 Dose: 0.4 mg Trazodone HCl (Trazodone Hcl 100 Mg Tablet) 200 mg PO BEDTIME [facility] Last Admin: 11/14/22 20:49 Dose: 200 mg Trazodone HCl (Trazodone Hcl 50 Mg Tablet) 50 mg PO BEDTIME PRN PRN Reason: Insomnia Last Admin: 11/14/22 00:24 Dose: 50 mg Vitamin D (Cholecalciferol (Vitamin D3) 10 Mcg Tablet) 10 mcg PO DAILY [facility] Last Admin: 11/15/22 09:33 Dose: 10 mcg Allergies Allergies Allergy/AdvReac Type Severity Reaction Status Date / Time fentanyl [FENTANYL] Allergy Intermediate unknown Verified 04/08/22 07:00 Assessment & Plan Assessment & Plan (1) Acute head injury without loss of consciousness: Status: Acute Code(s): S09.90XA - Unspecified injury of head, initial encounter Plan The patient is a 67-year-old male, , 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 At this moment also, he has problems of housing since he will not be able to go back to his regular retirement.? The patient has a long history of alcohol use disorder that he was not able to process or work on it.? Plan 1. Continue with the same treatment.? 2. We will work with the social media content specialist and DDS for a proper discharge planning.? 3. Continue with recommendations of Wound Care. 4. Increase Seroquel up to 150 mg po qhs. 10/30/22 restart lorazepam 1 hs prn insomnia norterip inc 100 hs level in 50 s monitor ekg 11/01 continue current tx plan 11/02/22- Bedside Swallow eval. s/p choking episode on 11/01. 2021 Increase Lexapro encourage CBT skills need supportive coaching patient increasingly hopeless helpless denies active self-harm check nortriptyline level 11/05/2022 Check nortriptyline level patient on Seroquel nortriptyline Lexapro.? Needs much reassurance and support the has difficulty interacting at times secondary to a hopelessness irritability passive SI.? Patient has having difficulty maintaining his posture in his chair unclear why this is happening for discuss safety issues with nursing will need OT and potentially Pt input? 11/06/2022 Patient depressed and anxious tried to review cognitive behavioral perspectives ways to emotionally manage current situational factors.? Patient has for an extended period of time had great deal of difficulty with any emotional a mental coping strategies.? Will and lorazepam p.r.n. 0.5 mg to help with anxiety trying get clarity from DTS regarding transition to retirement setting positive reinforcement for patient's efforts at physical conditioning becomes demoralized easily denies active self-harm 11/07 continue tx. 11/08 no changes, pt had unwitnessed fall and hit head, head CT negative 11/09 no changes 11/10 no changes 11/11 no changes 11/12/22 acute med w/u neg incentive spirometer cont medication cbt skills cont pt/ot 11/12 medical workout came back negative. No changes in current treatment 11/14/2022 Patient depressed withdrawn more fatigued 11/15: No change in medications. Reason for contiued inpatient stay Substantial Risk for: harm to self and rapid decompensation Time Spent With Patient Time: Total time managing care of this patient today ____ minutes.
[2022-11-15] MEDS: polyethylene glycoL 3350 17 GM POWD.PACK PO (16:45)
[2022-11-15 18:00] VITALS: BP 121/71; PULSE 67; RESP 18; TEMP 36.1; O2SAT 97
[2022-11-15] MEDS: Nortriptyline HCl 25 MG CAPSULE 100 MG PO (22:06)
[2022-11-15] MEDS: QUEtiapine Fumarate 50 MG TABLET 150 MG PO (22:06)
[2022-11-15] MEDS: Melatonin 3 MG TABLET 9 MG PO (22:07)
[2022-11-15] MEDS: LORazepam 1 MG TABLET PO (22:08)
[2022-11-15] MEDS: traZODone HCL 100 MG TABLET 200 MG PO (22:09)
[2022-11-15] MEDS: Latanoprost 0.005 % Ophth Sol 2.5 ML DROPS 1 DROP EYE-BOTH (22:09)
[2022-11-15] MEDS: Lidocaine 5 % Ointment 35 GM 1 APPL TOPICAL (22:10)
[2022-11-15] MEDS: Nystatin Powder 15 GM BOTTLE 1 APPL TOPICAL (22:10)
[2022-11-15] MEDS: Mineral Oil/Petrolatum,White 106 GM Tube 1 APPL TOPICAL (22:11)
[2022-11-16] MEDS: LORazepam 0.5 MG TABLET PO (05:07)
[2022-11-16] MEDS: Omeprazole 20 MG CAPSULE.DR PO ×2 (05:08→16:54)
[2022-11-16] MEDS: guaiFENesin DM 200/20/10 ML 10 ML SYRUP PO (05:08)
[2022-11-16 07:30] VITALS: BP 129/71; PULSE 88; RESP 15; TEMP 36.6; O2SAT 95
[2022-11-16] MEDS: QUEtiapine Fumarate 50 MG TABLET PO ×2 (08:35→16:54)
[2022-11-16] MEDS: lamoTRIgine 100 MG TABLET 200 MG PO ×2 (08:35→20:47)
[2022-11-16] MEDS: Pramipexole Di-HCL 0.25 MG TABLET PO ×3 (08:35→20:46)
[2022-11-16] MEDS: Gabapentin 300 MG CAPSULE 600 MG PO ×3 (08:36→20:46)
[2022-11-16] MEDS: Cholecalciferol (Vitamin D3) 10 MCG TABLET PO (08:36)
[2022-11-16] MEDS: Naltrexone HCl 50 MG TABLET PO (08:36)
[2022-11-16] MEDS: amLODIPine Besylate 5 MG TABLET PO (08:36)
[2022-11-16] MEDS: Escitalopram Oxalate 5 MG TABLET 15 MG PO (08:36)
[2022-11-16] MEDS: calcium polycarbophiL TABLET 1 TAB PO (08:40)
[2022-11-16] MEDS: Tamsulosin HCL 0.4 MG CAPSULE PO (08:40)
[2022-11-16] MEDS: Multivitamin TABLET 1 TAB PO (08:41)
[2022-11-16] MEDS: Finasteride 5 MG TABLET PO (08:41)
[2022-11-16] MEDS: lisinopriL 20 MG TABLET PO (08:41)
--- NOTE | 2022-11-16 11:40 | HO.PSYCHPN ---
Subjective Subjective Date of Service: 11/16/22 Reason For Visit: Depression aggression Interim History: Patient continues to be depressed withdrawn difficulty maintaining a positive attitude somewhat lethargic at time. He says that his depression is 8/10 and anxiety is 10/10. Says he feels helpless and hopeless about his situation most of the time. He understands the team is working on securing a new residential placement. Review of Systems Review of Systems General: +fatigue. No fevers, malaise, unintentional weight loss HEENT: No blurred vision, diplopia Cardiovascular: No chest pain, palpitations, or leg edema Respiratory: No shortness of breath, wheezing, cough GI: No abdominal pain, nausea, vomiting, diarrhea : No dysuria, hematuria, increased urinary frequency, decreased urinary output MSK: No myalgia, back pain Neuro: +headache. No weakness, paresthesias Skin: No rashes or lesions Yes Unobtainable due to mental condition Mental Status Exam Mental Status Exam Narrative: Sad looking Patient Appearance: Disheveled and Perspiring Patient Orientation: Person, Place, Time and Situation Level of Consciousness: Awake and Alert Patient Behavior: Guarded, Anxious, Fatigued and Isolative Mood Description: Constricted, Depressed, Anxious, Labile and Apprehensive Affect Description: Constricted, Angry and Apprehensive Patient Cognition Impaired: Yes Ability to Follow Directions: Fair Speech Pattern: Spontaneous Speech Memory Description: Episodic Impaired Patient Appearance: Appropriate Patient Orientation: Person and Situation Level of Consciousness: Awake and Appropriate Patient Behavior: Guarded and Passive Mood Description: Withdrawn Affect Description: Constricted Patient Cognition Impaired: Yes Ability to Follow Directions: Good Speech Pattern: Clear Memory Description: Episodic Impaired Diagnostics Vital Signs (24Hr): Vital Signs - 24 hr 11/15/22 18:00 11/16/22 07:30 Temperature 97 F 97.8 F Pulse Rate 67 88 Respiratory Rate 18 15 Blood Pressure 121/71 129/71 Pulse Oximetry 97 95 Oxygen Delivery Method Room Air Room Air BMI result Body Mass Index 31.7 Labs Results: 11/13/22 07:43 11/12/22 09:32 Imaging Radiology Impressions: ITS Impressions Chest X-Ray 10/20/22 15:45 IMPRESSION: 1. Low lung volumes with bibasilar linear disc atelectasis versus scarring. 2. No airspace consolidation or effusion. Head CT 11/08/22 12:29 IMPRESSION: No acute intracranial hemorrhage or territorial infarction. Stable chronic postoperative changes with gliosis and encephalomalacia in the right frontal and right temporal lobes. Ex vacuo dilatation of the ventricles and diffuse parenchymal volume loss. Right-sided craniotomy changes. Chest X-Ray 11/12/22 10:32 IMPRESSION: Hypoexpanded lungs with bibasilar platelike atelectasis. Brain MRI 11/12/22 13:15 IMPRESSION: 1. No demonstrated acute intracranial abnormalities. 2. Chronic encephalomalacia of the right temporal, right frontal, and left occipital lobes. Small regions of chronic encephalomalacia in the parasagittal aspects of the bilateral parietal lobes. Moderate underlying microangiopathy and generalized cerebral volume loss. Chest X-Ray 11/14/22 15:52 IMPRESSION: Low lung volumes, bibasilar subsegmental atelectasis and slight elevation of the right hemidiaphragm similar to previous exam. Medications Medications Current Medications Acetaminophen (Acetaminophen 325 Mg Tablet) 650 mg PO Q6H PRN PRN Reason: Headache/Pain Mild Scale (1-3) Last Admin: 11/14/22 16:11 Dose: 650 mg Al Hydroxide/Mg Hydroxide (Magnesium Hydrox/Alum Hydrox 30 Ml Oral.Susp) 30 ml PO Q6H PRN PRN Reason: Heartburn/Nausea Last Admin: 10/19/22 18:47 Dose: 30 ml Albuterol Sulfate (Albuterol Sulfate 90 Mcg 8 Gm Inhaler) 2 puff INHALE Q6H PRN PRN Reason: Wheezing Amlodipine Besylate (Amlodipine Besylate 5 Mg Tablet) 5 mg PO DAILY [facility]; Protocol Last Admin: 11/16/22 08:36 Dose: 5 mg Benzocaine (Throat Lozenge, Medicated Lozenge) 1 lozenge MUCOUS MEM Q2H PRN PRN Reason: Sore Throat Last Admin: 11/12/22 03:08 Dose: 1 lozenge Calcium Polycarbophil (Calcium Polycarbophil Tablet) 1 tab PO DAILY [facility] Last Admin: 11/16/22 08:40 Dose: 1 tab Docusate Sodium (Docusate Sodium 100 Mg Capsule) 100 mg PO DAILY PRN PRN Reason: constipation Last Admin: 11/14/22 21:03 Dose: 100 mg Escitalopram Oxalate (Escitalopram Oxalate 5 Mg Tablet) 15 mg PO DAILY [facility] Last Admin: 11/16/22 08:36 Dose: 15 mg Finasteride (Finasteride 5 Mg Tablet) 5 mg PO DAILY [facility] Last Admin: 11/16/22 08:41 Dose: 5 mg Gabapentin (Gabapentin 300 Mg Capsule) 600 mg PO TID [facility] Last Admin: 11/16/22 16:54 Dose: 600 mg Guaifenesin/Dextromethorphan (Guaifenesin Dm 200/20/10 Ml 10 Ml Syrup) 10 ml PO Q4H PRN PRN Reason: Cough Last Admin: 11/16/22 05:08 Dose: 10 ml Hydroxyzine HCl (Hydroxyzine Hcl 25 Mg Tablet) 25 mg PO Q6H PRN PRN Reason: Anxiety Last Admin: 11/13/22 00:26 Dose: 25 mg Lamotrigine (Lamotrigine 100 Mg Tablet) 200 mg PO BID [facility] Last Admin: 11/16/22 08:35 Dose: 200 mg Latanoprost (Latanoprost 0.005 % Ophth No 2.5 Ml Drops) 1 drop EYE-BOTH BEDTIME [facility] Last Admin: 11/15/22 22:09 Dose: 1 drop Lidocaine (Lidocaine 5 % Ointment 35 Gm) 1 appl TOPICAL QID [facility] Last Admin: 11/16/22 16:54 Dose: Not Given Lisinopril (Lisinopril 20 Mg Tablet) 20 mg PO DAILY [facility]; Protocol Last Admin: 11/16/22 08:41 Dose: 20 mg Lorazepam (Lorazepam 1 Mg Tablet) 1 mg PO BEDTIME [facility] Last Admin: 11/15/22 22:08 Dose: 1 mg Magnesium Hydroxide (Milk Of Magnesia 30 Ml Oral.Susp) 30 ml PO DAILY PRN PRN Reason: Constipation Last Admin: 10/21/22 22:46 Dose: 30 ml Melatonin (Melatonin 3 Mg Tablet) 9 mg PO BEDTIME [facility] Last Admin: 11/15/22 22:07 Dose: 9 mg Multi-Ingred Cream/Lotion/Oil/Oint (Mineral Oil/Petrolatum,White 106 Gm Tube) 1 appl TOPICAL BID [facility]; Protocol Last Admin: 11/16/22 16:54 Dose: Not Given Multivitamins/Vitamin C (Multivitamin Tablet) 1 tab PO DAILY [facility] Last Admin: 11/16/22 08:41 Dose: 1 tab Naltrexone HCl (Naltrexone Hcl 50 Mg Tablet) 50 mg PO DAILY [facility] Last Admin: 11/16/22 08:36 Dose: 50 mg Nortriptyline HCl (Nortriptyline Hcl 25 Mg Capsule) 100 mg PO BEDTIME [facility] Last Admin: 11/15/22 22:06 Dose: 100 mg Nystatin (Nystatin Powder 15 Gm Bottle) 1 appl TOPICAL BID [facility] Last Admin: 11/16/22 08:42 Dose: Not Given Omeprazole (Omeprazole 20 Mg Capsule.Dr) 20 mg PO BID@0630,1630 [facility] Last Admin: 11/16/22 16:54 Dose: 20 mg Ondansetron HCl (Ondansetron Odt 4 Mg Tab.Rapdis) 4 mg TRANSLINGU Q6H PRN PRN Reason: Nausea and Vomiting Oxybutynin Chloride (Oxybutynin Chloride Er 5 Mg Tab.Er.24) 10 mg PO DAILY [facility] Last Admin: 11/16/22 08:41 Dose: 10 mg Polyethylene Glycol (Polyethylene Glycol 3350 17 Gm Powd.Pack) 17 gm PO DAILY@1600 [facility] Last Admin: 11/16/22 16:56 Dose: 17 gm Pramipexole Dihydrochloride (Pramipexole Di-Hcl 0.25 Mg Tablet) 0.25 mg PO TID [facility] Last Admin: 11/16/22 16:54 Dose: 0.25 mg Psyllium Hydrophilic Mucilloid (Psyllium Seed 3.4 Gm Powd.Pack) 3.4 gm PO DAILY [facility] Last Admin: 11/16/22 08:34 Dose: 3.4 gm Quetiapine Fumarate (Quetiapine Fumarate 25 Mg Tablet) 25 mg PO Q4H PRN PRN Reason: Anxiety Last Admin: 11/14/22 00:24 Dose: 25 mg Quetiapine Fumarate (Quetiapine Fumarate 50 Mg Tablet) 50 mg PO BID@0900,1700 [facility] Last Admin: 11/16/22 16:54 Dose: 50 mg Quetiapine Fumarate (Quetiapine Fumarate 50 Mg Tablet) 150 mg PO BEDTIME [facility] Last Admin: 11/15/22 22:06 Dose: 150 mg Tamsulosin HCl (Tamsulosin Hcl 0.4 Mg Capsule) 0.4 mg PO DAILY [facility] Last Admin: 11/16/22 08:40 Dose: 0.4 mg Trazodone HCl (Trazodone Hcl 100 Mg Tablet) 200 mg PO BEDTIME [facility] Last Admin: 12/31/22 22:09 Dose: 200 mg Trazodone HCl (Trazodone Hcl 50 Mg Tablet) 50 mg PO BEDTIME PRN PRN Reason: Insomnia Last Admin: 11/14/22 00:24 Dose: 50 mg Vitamin D (Cholecalciferol (Vitamin D3) 10 Mcg Tablet) 10 mcg PO DAILY [facility] Last Admin: 11/16/22 08:36 Dose: 10 mcg Allergies Allergies Allergy/AdvReac Type Severity Reaction Status Date / Time fentanyl [FENTANYL] Allergy Intermediate unknown Verified 04/08/22 07:00 Assessment & Plan Assessment & Plan (1) Acute head injury without loss of consciousness: Status: Acute Code(s): S09.90XA - Unspecified injury of head, initial encounter Plan The patient is a 67-year-old male, , 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 The patient has a long history of alcohol use disorder that he was not able to process or work on it.? Plan 1. Continue with the same treatment.? 2. We will work with the director social and DDS for a proper discharge planning.? 3. Continue with recommendations of Wound Care. 4. Increase Seroquel up to 150 mg po qhs. 10/30/22 restart lorazepam 1 hs prn insomnia norterip inc 100 hs level in 50 s monitor ekg 11/01 continue current tx plan 11/02/22- Bedside Swallow eval. s/p choking episode on 11/01. 2021 Increase Lexapro encourage CBT skills need supportive coaching patient increasingly hopeless helpless denies active self-harm check nortriptyline level 11/05/2022 Check nortriptyline level patient on Seroquel nortriptyline Lexapro.? Needs much reassurance and support the has difficulty interacting at times secondary to a hopelessness irritability passive SI.? Patient has having difficulty maintaining his posture in his chair unclear why this is happening for discuss safety issues with nursing will need OT and potentially Pt input? 11/06/2022 Patient depressed and anxious tried to review cognitive behavioral perspectives ways to emotionally manage current situational factors.? Patient has for an extended period of time had great deal of difficulty with any emotional a mental coping strategies.? Will and lorazepam p.r.n. 0.5 mg to help with anxiety trying get clarity from DTS regarding transition to jail setting positive reinforcement for patient's efforts at physical conditioning becomes demoralized easily denies active self-harm 11/07 continue tx. 11/08 no changes, pt had unwitnessed fall and hit head, head CT negative 11/09 no changes 11/10 no changes 11/11 no changes 11/12/22 acute med w/u neg incentive spirometer cont medication cbt skills cont pt/ot 11/12 medical workout came back negative. No changes in current treatment 11/14/2022 Patient depressed withdrawn more fatigued 11/15: No change in medications. 11/16: Continue current tx plan. Reason for contiued inpatient stay Substantial Risk for: harm to self, inability to function and rapid decompensation Time Spent With Patient Time: Total time managing care of this patient today ____ minutes.
[2022-11-16] MEDS: polyethylene glycoL 3350 17 GM POWD.PACK PO (16:56)
[2022-11-16 20:45] VITALS: BP 97/60; PULSE 69; RESP 18; O2SAT 95
[2022-11-16] MEDS: traZODone HCL 100 MG TABLET 200 MG PO (20:45)
[2022-11-16] MEDS: Nortriptyline HCl 25 MG CAPSULE 100 MG PO (20:45)
[2022-11-16] MEDS: QUEtiapine Fumarate 50 MG TABLET 150 MG PO (20:46)
[2022-11-16] MEDS: Melatonin 3 MG TABLET 9 MG PO (20:47)
[2022-11-16] MEDS: LORazepam 1 MG TABLET PO (20:48)
[2022-11-17] MEDS: traZODone HCL 50 MG TABLET PO (02:58)
[2022-11-17] MEDS: Omeprazole 20 MG CAPSULE.DR PO ×2 (04:55→17:04)
[2022-11-17 07:30] VITALS: BP 155/80; PULSE 65; RESP 16; TEMP 36.5; O2SAT 96
[2022-11-17] MEDS: Escitalopram Oxalate 5 MG TABLET 15 MG PO (08:40)
[2022-11-17] MEDS: Multivitamin TABLET 1 TAB PO (08:51)
[2022-11-17] MEDS: Finasteride 5 MG TABLET PO (08:51)
[2022-11-17] MEDS: Cholecalciferol (Vitamin D3) 10 MCG TABLET PO (08:51)
[2022-11-17] MEDS: Tamsulosin HCL 0.4 MG CAPSULE PO (08:52)
[2022-11-17] MEDS: Gabapentin 300 MG CAPSULE 600 MG PO ×3 (08:52→20:17)
[2022-11-17] MEDS: lamoTRIgine 100 MG TABLET 200 MG PO ×2 (08:52→20:19)
[2022-11-17] MEDS: QUEtiapine Fumarate 50 MG TABLET PO ×2 (08:53→17:04)
[2022-11-17] MEDS: calcium polycarbophiL TABLET 1 TAB PO (08:53)
[2022-11-17] MEDS: lisinopriL 20 MG TABLET PO (08:53)
[2022-11-17] MEDS: Naltrexone HCl 50 MG TABLET PO (08:53)
[2022-11-17] MEDS: Pramipexole Di-HCL 0.25 MG TABLET PO ×3 (08:53→20:19)
[2022-11-17] MEDS: amLODIPine Besylate 5 MG TABLET PO (08:56)
[2022-11-17] MEDS: Nystatin Powder 15 GM BOTTLE 1 APPL TOPICAL ×2 (11:42→20:46)
[2022-11-17] MEDS: Lidocaine 5 % Ointment 35 GM 1 APPL TOPICAL ×4 (11:42→20:46)
[2022-11-17] MEDS: Mineral Oil/Petrolatum,White 106 GM Tube 1 APPL TOPICAL (12:58)
[2022-11-17] MEDS: QUEtiapine Fumarate 25 MG TABLET PO (13:49)
[2022-11-17] MEDS: Magnesium Hydrox/Alum Hydrox 30 ML ORAL.SUSP PO (13:49)
--- NOTE | 2022-11-17 15:10 | P.PNPSI_ITS ---
Subjective Subjective Date of Service: 11/17/22 Reason For Visit: Depression aggression Interim History: Patient continues to be depressed withdrawn difficulty maintaining a positive attitude somewhat lethargic at time. He says that even though he has no active SI, he says I know what I would do if I leave here. Says he feels helpless and hopeless about his situation most of the time. He understands the team is working on securing a new long-term placement. Review of Systems Review of Systems General: +fatigue. No fevers, malaise, unintentional weight loss HEENT: No blurred vision, diplopia Cardiovascular: No chest pain, palpitations, or leg edema Respiratory: No shortness of breath, wheezing, cough GI: No abdominal pain, nausea, vomiting, diarrhea : No dysuria, hematuria, increased urinary frequency, decreased urinary output MSK: No myalgia, back pain Neuro: +headache. No weakness, paresthesias Skin: No rashes or lesions Yes Unobtainable due to mental condition Mental Status Exam Mental Status Exam Narrative: Sad looking Patient Appearance: Disheveled and Perspiring Patient Orientation: Person, Place, Time and Situation Level of Consciousness: Awake and Alert Patient Behavior: Guarded, Anxious, Fatigued and Isolative Mood Description: Constricted, Depressed, Anxious, Labile and Apprehensive Affect Description: Constricted, Angry and Apprehensive Patient Cognition Impaired: Yes Ability to Follow Directions: Fair Speech Pattern: Spontaneous Speech Memory Description: Episodic Impaired Patient Appearance: Appropriate Patient Orientation: Person and Situation Level of Consciousness: Awake and Appropriate Patient Behavior: Guarded and Passive Mood Description: Withdrawn Affect Description: Constricted Patient Cognition Impaired: Yes Ability to Follow Directions: Good Speech Pattern: Clear Memory Description: Episodic Impaired Diagnostics Vital Signs (24Hr): Vital Signs - 24 hr 11/16/22 20:45 11/17/22 07:30 Temperature 97.7 F Pulse Rate 69 65 Respiratory Rate 18 16 Blood Pressure 97/60 155/80 H Pulse Oximetry 95 96 Oxygen Delivery Method Room Air Room Air BMI result Body Mass Index 31.7 Labs Results: 11/13/22 07:43 11/12/22 09:32 Imaging Radiology Impressions: ITS Impressions Chest X-Ray 10/20/22 15:45 IMPRESSION: 1. Low lung volumes with bibasilar linear disc atelectasis versus scarring. 2. No airspace consolidation or effusion. Head CT 11/08/22 12:29 IMPRESSION: No acute intracranial hemorrhage or territorial infarction. Stable chronic postoperative changes with gliosis and encephalomalacia in the right frontal and right temporal lobes. Ex vacuo dilatation of the ventricles and diffuse parenchymal volume loss. Right-sided craniotomy changes. Chest X-Ray 11/12/22 10:32 IMPRESSION: Hypoexpanded lungs with bibasilar platelike atelectasis. Brain MRI 11/12/22 13:15 IMPRESSION: 1. No demonstrated acute intracranial abnormalities. 2. Chronic encephalomalacia of the right temporal, right frontal, and left occipital lobes. Small regions of chronic encephalomalacia in the parasagittal aspects of the bilateral parietal lobes. Moderate underlying microangiopathy and generalized cerebral volume loss. Chest X-Ray 11/14/22 15:52 IMPRESSION: Low lung volumes, bibasilar subsegmental atelectasis and slight elevation of the right hemidiaphragm similar to previous exam. Medications Medications Current Medications Acetaminophen (Acetaminophen 325 Mg Tablet) 650 mg PO Q6H PRN PRN Reason: Headache/Pain Mild Scale (1-3) Last Admin: 11/14/22 16:11 Dose: 650 mg Al Hydroxide/Mg Hydroxide (Magnesium Hydrox/Alum Hydrox 30 Ml Oral.Susp) 30 ml PO Q6H PRN PRN Reason: Heartburn/Nausea Last Admin: 11/17/22 13:49 Dose: 30 ml Albuterol Sulfate (Albuterol Sulfate 90 Mcg 8 Gm Inhaler) 2 puff INHALE Q6H PRN PRN Reason: Wheezing Amlodipine Besylate (Amlodipine Besylate 5 Mg Tablet) 5 mg PO DAILY [facility]; Protocol Last Admin: 11/17/22 08:56 Dose: 5 mg Benzocaine (Throat Lozenge, Medicated Lozenge) 1 lozenge MUCOUS MEM Q2H PRN PRN Reason: Sore Throat Last Admin: 11/12/22 03:08 Dose: 1 lozenge Calcium Polycarbophil (Calcium Polycarbophil Tablet) 1 tab PO DAILY [facility] Last Admin: 11/17/22 08:53 Dose: 1 tab Docusate Sodium (Docusate Sodium 100 Mg Capsule) 100 mg PO DAILY PRN PRN Reason: constipation Last Admin: 11/14/22 21:03 Dose: 100 mg Escitalopram Oxalate (Escitalopram Oxalate 5 Mg Tablet) 15 mg PO DAILY [facility] Last Admin: 11/17/22 08:40 Dose: 15 mg Finasteride (Finasteride 5 Mg Tablet) 5 mg PO DAILY [facility] Last Admin: 11/17/22 08:51 Dose: 5 mg Gabapentin (Gabapentin 300 Mg Capsule) 600 mg PO TID [facility] Last Admin: 11/17/22 13:49 Dose: 600 mg Guaifenesin/Dextromethorphan (Guaifenesin Dm 200/20/10 Ml 10 Ml Syrup) 10 ml PO Q4H PRN PRN Reason: Cough Last Admin: 11/16/22 05:08 Dose: 10 ml Hydroxyzine HCl (Hydroxyzine Hcl 25 Mg Tablet) 25 mg PO Q6H PRN PRN Reason: Anxiety Last Admin: 11/13/22 00:26 Dose: 25 mg Lamotrigine (Lamotrigine 100 Mg Tablet) 200 mg PO BID [facility] Last Admin: 11/17/22 08:52 Dose: 200 mg Latanoprost (Latanoprost 0.005 % Ophth No 2.5 Ml Drops) 1 drop EYE-BOTH BEDTIME [facility] Last Admin: 11/16/22 21:26 Dose: Not Given Lidocaine (Lidocaine 5 % Ointment 35 Gm) 1 appl TOPICAL QID [facility] Last Admin: 11/17/22 17:08 Dose: 1 appl Lisinopril (Lisinopril 20 Mg Tablet) 20 mg PO DAILY [facility]; Protocol Last Admin: 11/17/22 08:53 Dose: 20 mg Lorazepam (Lorazepam 1 Mg Tablet) 1 mg PO BEDTIME [facility] Last Admin: 11/16/22 20:48 Dose: 1 mg Magnesium Hydroxide (Milk Of Magnesia 30 Ml Oral.Susp) 30 ml PO DAILY PRN PRN Reason: Constipation Last Admin: 10/21/22 22:46 Dose: 30 ml Melatonin (Melatonin 3 Mg Tablet) 9 mg PO BEDTIME [facility] Last Admin: 11/16/22 20:47 Dose: 9 mg Multi-Ingred Cream/Lotion/Oil/Oint (Mineral Oil/Petrolatum,White 106 Gm Tube) 1 appl TOPICAL BID [facility]; Protocol Last Admin: 11/17/22 12:58 Dose: 1 appl Multivitamins/Vitamin C (Multivitamin Tablet) 1 tab PO DAILY [facility] Last Admin: 11/17/22 08:51 Dose: 1 tab Naltrexone HCl (Naltrexone Hcl 50 Mg Tablet) 50 mg PO DAILY [facility] Last Admin: 11/17/22 08:53 Dose: 50 mg Nortriptyline HCl (Nortriptyline Hcl 25 Mg Capsule) 100 mg PO BEDTIME [facility] Last Admin: 11/16/22 20:45 Dose: 100 mg Nystatin (Nystatin Powder 15 Gm Bottle) 1 appl TOPICAL BID [facility] Last Admin: 11/17/22 11:42 Dose: 1 appl Omeprazole (Omeprazole 20 Mg Capsule.Dr) 20 mg PO BID@0630,1630 [facility] Last Admin: 11/17/22 17:04 Dose: 20 mg Ondansetron HCl (Ondansetron Odt 4 Mg Tab.Rapdis) 4 mg TRANSLINGU Q6H PRN PRN Reason: Nausea and Vomiting Oxybutynin Chloride (Oxybutynin Chloride Er 5 Mg Tab.Er.24) 10 mg PO DAILY [facility] Last Admin: 11/17/22 08:52 Dose: 10 mg Polyethylene Glycol (Polyethylene Glycol 3350 17 Gm Powd.Pack) 17 gm PO DAILY@1600 [facility] Last Admin: 11/17/22 17:04 Dose: 17 gm Pramipexole Dihydrochloride (Pramipexole Di-Hcl 0.25 Mg Tablet) 0.25 mg PO TID [facility] Last Admin: 11/17/22 13:49 Dose: 0.25 mg Psyllium Hydrophilic Mucilloid (Psyllium Seed 3.4 Gm Powd.Pack) 3.4 gm PO DAILY [facility] Last Admin: 11/17/22 08:50 Dose: 3.4 gm Quetiapine Fumarate (Quetiapine Fumarate 25 Mg Tablet) 25 mg PO Q4H PRN PRN Reason: Anxiety Last Admin: 11/17/22 13:49 Dose: 25 mg Quetiapine Fumarate (Quetiapine Fumarate 50 Mg Tablet) 50 mg PO BID@0900,1700 [facility] Last Admin: 11/17/22 17:04 Dose: 50 mg Quetiapine Fumarate (Quetiapine Fumarate 50 Mg Tablet) 150 mg PO BEDTIME [facility] Last Admin: 11/16/22 20:46 Dose: 150 mg Tamsulosin HCl (Tamsulosin Hcl 0.4 Mg Capsule) 0.4 mg PO DAILY [facility] Last Admin: 11/17/22 08:52 Dose: 0.4 mg Trazodone HCl (Trazodone Hcl 100 Mg Tablet) 200 mg PO BEDTIME [facility] Last Admin: 11/16/22 20:45 Dose: 200 mg Trazodone HCl (Trazodone Hcl 50 Mg Tablet) 50 mg PO BEDTIME PRN PRN Reason: Insomnia Last Admin: 11/17/22 02:58 Dose: 50 mg Vitamin D (Cholecalciferol (Vitamin D3) 10 Mcg Tablet) 10 mcg PO DAILY [facility] Last Admin: 11/17/22 08:51 Dose: 10 mcg Allergies Allergies Allergy/AdvReac Type Severity Reaction Status Date / Time fentanyl [FENTANYL] Allergy Intermediate unknown Verified 04/08/22 07:00 Assessment & Plan Assessment & Plan (1) Acute head injury without loss of consciousness: Status: Acute Code(s): S09.90XA - Unspecified injury of head, initial encounter Plan The patient is a 67-year-old male, , 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 At this moment also, he has problems of housing since he will not be able to go back to his regular fdc.? The patient has a long history of alcohol use disorder that he was not able to process or work on it.? Plan 1. Continue with the same treatment.? 2. We will work with the social services analyst and DDS for a proper discharge planning.? 3. Continue with recommendations of Wound Care. 4. Increase Seroquel up to 150 mg po qhs. 10/30/22 restart lorazepam 1 hs prn insomnia norterip inc 100 hs level in 50 s monitor ekg 11/01 continue current tx plan 11/02/22- Bedside Swallow eval. s/p choking episode on 11/01. 2021 Increase Lexapro encourage CBT skills need supportive coaching patient increa singly hopeless helpless denies active self-harm check nortriptyline level 11/05/2022 Check nortriptyline level patient on Seroquel nortriptyline Lexapro.? Needs much reassurance and support the has difficulty interacting at times secondary to a hopelessness irritability passive SI.? Patient has having difficulty maintaining his posture in his chair unclear why this is happening for discuss safety issues with nursing will need OT and potentially Pt input? 11/06/2022 Patient depressed and anxious tried to review cognitive behavioral perspectives ways to emotionally manage current situational factors.? Patient has for an extended period of time had great deal of difficulty with any emotional a mental coping strategies.? Will and lorazepam p.r.n. 0.5 mg to help with anxiety trying get clarity from DTS regarding transition to fdc setting positive reinforcement for patient's efforts at physical conditioning becomes demoralized easily denies active self-harm 11/07 continue tx. 11/08 no changes, pt had unwitnessed fall and hit head, head CT negative 11/09 no changes 11/10 no changes 11/11 no changes 11/12/22 acute med w/u neg incentive spirometer cont medication cbt skills cont pt/ot 11/12 medical workout came back negative. No changes in current treatment 11/14/2022 Patient depressed withdrawn more fatigued 11/15: No change in medications. 11/16: Continue current tx plan. 11/17: Continue current treatment plan. Reason for contiued inpatient stay Substantial Risk for: harm to self, inability to function and rapid decompensation Time Spent With Patient Time: Total time managing care of this patient today ____ minutes.
[2022-11-17] MEDS: polyethylene glycoL 3350 17 GM POWD.PACK PO (17:04)
[2022-11-17 18:00] VITALS: BP 96/61; PULSE 76; RESP 16; TEMP 36.6; O2SAT 94
[2022-11-17] MEDS: traZODone HCL 100 MG TABLET 200 MG PO (20:00)
[2022-11-17] MEDS: Nortriptyline HCl 25 MG CAPSULE 100 MG PO (20:13)
[2022-11-17] MEDS: LORazepam 1 MG TABLET PO (20:13)
[2022-11-17] MEDS: Melatonin 3 MG TABLET 9 MG PO (20:14)
[2022-11-17] MEDS: QUEtiapine Fumarate 50 MG TABLET 150 MG PO (20:17)
[2022-11-17] MEDS: Latanoprost 0.005 % Ophth Sol 2.5 ML DROPS 1 DROP EYE-BOTH (20:46)
[2022-11-18 06:00] VITALS: BP 102/70; PULSE 74; RESP 18; TEMP 36.7; O2SAT 96
[2022-11-18] MEDS: lamoTRIgine 100 MG TABLET 200 MG PO ×2 (09:16→20:06)
[2022-11-18] MEDS: calcium polycarbophiL TABLET 1 TAB PO (09:16)
[2022-11-18] MEDS: Cholecalciferol (Vitamin D3) 10 MCG TABLET PO (09:17)
[2022-11-18] MEDS: Finasteride 5 MG TABLET PO (09:17)
[2022-11-18] MEDS: lisinopriL 20 MG TABLET PO (09:17)
[2022-11-18] MEDS: Pramipexole Di-HCL 0.25 MG TABLET PO ×3 (09:17→20:07)
[2022-11-18] MEDS: Omeprazole 20 MG CAPSULE.DR PO ×2 (09:17→16:30)
[2022-11-18] MEDS: QUEtiapine Fumarate 50 MG TABLET PO ×2 (09:17→16:30)
[2022-11-18] MEDS: Tamsulosin HCL 0.4 MG CAPSULE PO (09:17)
[2022-11-18] MEDS: Gabapentin 300 MG CAPSULE 600 MG PO ×2 (09:17→16:29)
[2022-11-18] MEDS: Escitalopram Oxalate 5 MG TABLET 15 MG PO (09:17)
[2022-11-18] MEDS: amLODIPine Besylate 5 MG TABLET PO (09:18)
[2022-11-18] MEDS: Mineral Oil/Petrolatum,White 106 GM Tube 1 APPL TOPICAL ×2 (09:18→20:14)
[2022-11-18] MEDS: Lidocaine 5 % Ointment 35 GM 1 APPL TOPICAL ×2 (09:18→20:12)
[2022-11-18] MEDS: Multivitamin TABLET 1 TAB PO (09:19)
[2022-11-18] MEDS: Naltrexone HCl 50 MG TABLET PO (09:19)
[2022-11-18] MEDS: Nystatin Powder 15 GM BOTTLE 1 APPL TOPICAL ×2 (09:19→20:12)
--- NOTE | 2022-11-18 13:14 | P.PNPSI_ITS ---
Subjective Subjective Date of Service: 11/18/22 Reason For Visit: Depression aggression Subjective Notes: Conditional Voluntary Interim History: Patient continues to be depressed withdrawn difficulty maintaining a positive attitude somewhat lethargic at time. He says that even though he has no active SI, he says I know what I would do if I leave here. Says he feels helpless and hopeless about his situation most of the time. He understands the team is working on securing a new prison placement. no change to above will try and lower seroquel Review of Systems difficulty with positioning Mental Status Exam Mental Status Exam Narrative: Sad looking Patient Appearance: Disheveled and Perspiring Patient Orientation: Person, Place, Time and Situation Level of Consciousness: Awake and Alert Patient Behavior: Guarded, Anxious, Fatigued and Isolative Mood Description: Constricted, Depressed, Anxious, Labile and Apprehensive Affect Description: Constricted, Angry and Apprehensive Patient Cognition Impaired: Yes Ability to Follow Directions: Fair Speech Pattern: Spontaneous Speech Memory Description: Episodic Impaired Diagnostics Vital Signs (24Hr): Vital Signs - 24 hr 11/17/22 18:00 11/18/22 06:00 Temperature 97.9 F 98.0 F Pulse Rate 76 74 Respiratory Rate 16 18 Blood Pressure 96/61 102/70 Pulse Oximetry 94 96 Oxygen Delivery Method Room Air BMI result Body Mass Index 31.7 Labs Results: 11/13/22 07:43 11/12/22 09:32 Imaging Radiology Impressions: ITS Impressions Chest X-Ray 10/20/22 15:45 IMPRESSION: 1. Low lung volumes with bibasilar linear disc atelectasis versus scarring. 2. No airspace consolidation or effusion. Head CT 11/08/22 12:29 IMPRESSION: No acute intracranial hemorrhage or territorial infarction. Stable chronic postoperative changes with gliosis and encephalomalacia in the right frontal and right temporal lobes. Ex vacuo dilatation of the ventricles and diffuse parenchymal volume loss. Right-sided craniotomy changes. Chest X-Ray 11/12/22 10:32 IMPRESSION: Hypoexpanded lungs with bibasilar platelike atelectasis. Brain MRI 11/12/22 13:15 IMPRESSION: 1. No demonstrated acute intracranial abnormalities. 2. Chronic encephalomalacia of the right temporal, right frontal, and left occipital lobes. Small regions of chronic encephalomalacia in the parasagittal aspects of the bilateral parietal lobes. Moderate underlying microangiopathy and generalized cerebral volume loss. Chest X-Ray 11/14/22 15:52 IMPRESSION: Low lung volumes, bibasilar subsegmental atelectasis and slight elevation of the right hemidiaphragm similar to previous exam. Medications Medications Current Medications Acetaminophen (Acetaminophen 325 Mg Tablet) 650 mg PO Q6H PRN PRN Reason: Headache/Pain Mild Scale (1-3) Last Admin: 11/14/22 16:11 Dose: 650 mg Al Hydroxide/Mg Hydroxide (Magnesium Hydrox/Alum Hydrox 30 Ml Oral.Susp) 30 ml PO Q6H PRN PRN Reason: Heartburn/Nausea Last Admin: 11/17/22 13:49 Dose: 30 ml Albuterol Sulfate (Albuterol Sulfate 90 Mcg 8 Gm Inhaler) 2 puff INHALE Q6H PRN PRN Reason: Wheezing Amlodipine Besylate (Amlodipine Besylate 5 Mg Tablet) 5 mg PO DAILY [facility]; Protocol Last Admin: 11/18/22 09:18 Dose: 5 mg Benzocaine (Throat Lozenge, Medicated Lozenge) 1 lozenge MUCOUS MEM Q2H PRN PRN Reason: Sore Throat Last Admin: 11/12/22 03:08 Dose: 1 lozenge Calcium Polycarbophil (Calcium Polycarbophil Tablet) 1 tab PO DAILY [facility] Last Admin: 11/18/22 09:16 Dose: 1 tab Docusate Sodium (Docusate Sodium 100 Mg Capsule) 100 mg PO DAILY PRN PRN Reason: constipation Last Admin: 11/14/22 21:03 Dose: 100 mg Escitalopram Oxalate (Escitalopram Oxalate 5 Mg Tablet) 15 mg PO DAILY [facility] Last Admin: 11/18/22 09:17 Dose: 15 mg Finasteride (Finasteride 5 Mg Tablet) 5 mg PO DAILY [facility] Last Admin: 11/18/22 09:17 Dose: 5 mg Gabapentin (Gabapentin 300 Mg Capsule) 600 mg PO TID [facility] Last Admin: 11/18/22 09:17 Dose: 600 mg Guaifenesin/Dextromethorphan (Guaifenesin Dm 200/20/10 Ml 10 Ml Syrup) 10 ml PO Q4H PRN PRN Reason: Cough Last Admin: 11/16/22 05:08 Dose: 10 ml Hydroxyzine HCl (Hydroxyzine Hcl 25 Mg Tablet) 25 mg PO Q6H PRN PRN Reason: Anxiety Last Admin: 11/13/22 00:26 Dose: 25 mg Lamotrigine (Lamotrigine 100 Mg Tablet) 200 mg PO BID [facility] Last Admin: 11/18/22 09:16 Dose: 200 mg Latanoprost (Latanoprost 0.005 % Ophth No 2.5 Ml Drops) 1 drop EYE-BOTH BEDTIME [facility] Last Admin: 11/17/22 20:46 Dose: 1 drop Lidocaine (Lidocaine 5 % Ointment 35 Gm) 1 appl TOPICAL QID [facility] Last Admin: 11/18/22 09:18 Dose: 1 appl Lisinopril (Lisinopril 20 Mg Tablet) 20 mg PO DAILY [facility]; Protocol Last Admin: 11/18/22 09:17 Dose: 20 mg Lorazepam (Lorazepam 1 Mg Tablet) 1 mg PO BEDTIME [facility] Last Admin: 11/17/22 20:13 Dose: 1 mg Magnesium Hydroxide (Milk Of Magnesia 30 Ml Oral.Susp) 30 ml PO DAILY PRN PRN Reason: Constipation Last Admin: 10/21/22 22:46 Dose: 30 ml Melatonin (Melatonin 3 Mg Tablet) 9 mg PO BEDTIME [facility] Last Admin: 11/17/22 20:14 Dose: 9 mg Multi-Ingred Cream/Lotion/Oil/Oint (Mineral Oil/Petrolatum,White 106 Gm Tube) 1 appl TOPICAL BID [facility]; Protocol Last Admin: 11/18/22 09:18 Dose: 1 appl Multivitamins/Vitamin C (Multivitamin Tablet) 1 tab PO DAILY [facility] Last Admin: 11/18/22 09:19 Dose: 1 tab Naltrexone HCl (Naltrexone Hcl 50 Mg Tablet) 50 mg PO DAILY [facility] Last Admin: 11/18/22 09:19 Dose: 50 mg Nortriptyline HCl (Nortriptyline Hcl 25 Mg Capsule) 100 mg PO BEDTIME [facility] Last Admin: 11/17/22 20:13 Dose: 100 mg Nystatin (Nystatin Powder 15 Gm Bottle) 1 appl TOPICAL BID [facility] Last Admin: 11/18/22 09:19 Dose: 1 appl Omeprazole (Omeprazole 20 Mg Capsule.Dr) 20 mg PO BID@0630,1630 [facility] Last Admin: 11/18/22 09:17 Dose: 20 mg Ondansetron HCl (Ondansetron Odt 4 Mg Tab.Rapdis) 4 mg TRANSLINGU Q6H PRN PRN Reason: Nausea and Vomiting Oxybutynin Chloride (Oxybutynin Chloride Er 5 Mg Tab.Er.24) 10 mg PO DAILY [facility] Last Admin: 11/18/22 09:17 Dose: 10 mg Polyethylene Glycol (Polyethylene Glycol 3350 17 Gm Powd.Pack) 17 gm PO DAILY@1600 [facility] Last Admin: 11/17/22 17:04 Dose: 17 gm Pramipexole Dihydrochloride (Pramipexole Di-Hcl 0.25 Mg Tablet) 0.25 mg PO TID [facility] Last Admin: 11/18/22 09:17 Dose: 0.25 mg Psyllium Hydrophilic Mucilloid (Psyllium Seed 3.4 Gm Powd.Pack) 3.4 gm PO DAILY [facility] Last Admin: 11/18/22 09:15 Dose: 3.4 gm Quetiapine Fumarate (Quetiapine Fumarate 25 Mg Tablet) 25 mg PO Q4H PRN PRN Reason: Anxiety Last Admin: 11/17/22 13:49 Dose: 25 mg Quetiapine Fumarate (Quetiapine Fumarate 50 Mg Tablet) 50 mg PO BID@0900,1700 [facility] Last Admin: 11/18/22 09:17 Dose: 50 mg Quetiapine Fumarate (Quetiapine Fumarate 50 Mg Tablet) 150 mg PO BEDTIME [facility] Last Admin: 11/17/22 20:17 Dose: 150 mg Tamsulosin HCl (Tamsulosin Hcl 0.4 Mg Capsule) 0.4 mg PO DAILY [facility] Last Admin: 11/18/22 09:17 Dose: 0.4 mg Trazodone HCl (Trazodone Hcl 100 Mg Tablet) 200 mg PO BEDTIME [facility] Last Admin: 11/17/22 20:00 Dose: 200 mg Trazodone HCl (Trazodone Hcl 50 Mg Tablet) 50 mg PO BEDTIME PRN PRN Reason: Insomnia Last Admin: 11/17/22 02:58 Dose: 50 mg Vitamin D (Cholecalciferol (Vitamin D3) 10 Mcg Tablet) 10 mcg PO DAILY [facility] Last Admin: 11/18/22 09:17 Dose: 10 mcg Allergies Allergies Allergy/AdvReac Type Severity Reaction Status Date / Time fentanyl [FENTANYL] Allergy Intermediate unknown Verified 04/08/22 07:00 Assessment & Plan Assessment & Plan (1) Acute head injury without loss of consciousness: Status: Acute Code(s): S09.90XA - Unspecified injury of head, initial encounter Plan The patient is a 67-year-old male, , 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 At this moment also, he has problems of housing since he will not be able to go back to his regular custodial.? The patient has a long history of alcohol use disorder that he was not able to process or work on it.? Plan 1. Continue with the same treatment.? 2. We will work with the psychosocial rehabilitation counselor and DDS for a proper discharge planning.? 3. Continue with recommendations of Wound Care. 4. Increase Seroquel up to 150 mg po qhs. 10/30/22 restart lorazepam 1 hs prn insomnia norterip inc 100 hs level in 50 s monitor ekg 11/01 continue current tx plan 11/02/22- Bedside Swallow eval. s/p choking episode on 11/01. 2021 Increase Lexapro encourage CBT skills need supportive coaching patient increasingly hopeless helpless denies active self-harm check nortriptyline level 11/05/2022 Check nortriptyline level patient on Seroquel nortriptyline Lexapro.? Needs much reassurance and support the has difficulty interacting at times secondary to a hopelessness irritability passive SI.? Patient has having difficulty maintaining his posture in his chair unclear why this is happening for discuss safety issues with nursing will need OT and potentially Pt input? 11/06/2022 Patient depressed and anxious tried to review cognitive behavioral perspectives ways to emotionally manage current situational factors.? Patient has for an extended period of time had great deal of difficulty with any emotional a mental coping strategies.? Will and lorazepam p.r.n. 0.5 mg to help with anxiety trying get clarity from DTS regarding transition to custodial setting positive reinforcement for patient's efforts at physical conditioning becomes demoralized easily denies active self-harm 11/07 continue tx. 11/08 no changes, pt had unwitnessed fall and hit head, head CT negative 11/09 no changes 11/10 no changes 11/11 no changes 11/12/22 acute med w/u neg incentive spirometer cont medication cbt skills cont pt/ot 11/12 medical workout came back negative. No changes in current treatment 11/14/2022 Patient depressed withdrawn more fatigued 11/18/21 taper lexapro start effexor lower seroquel sec to fatigue Reason for contiued inpatient stay Substantial Risk for: harm to self, rapid decompensation and med/psych decomp ensation Time Spent With Patient Time: Total time managing care of this patient today ____ minutes.
[2022-11-18] MEDS: polyethylene glycoL 3350 17 GM POWD.PACK PO (16:31)
[2022-11-18 18:00] VITALS: BP 91/57; PULSE 68; RESP 16; TEMP 36.3; O2SAT 94
[2022-11-18] MEDS: traZODone HCL 100 MG TABLET 200 MG PO (20:02)
[2022-11-18] MEDS: Nortriptyline HCl 25 MG CAPSULE 100 MG PO (20:03)
[2022-11-18] MEDS: Melatonin 3 MG TABLET 9 MG PO (20:04)
[2022-11-18] MEDS: QUEtiapine Fumarate 50 MG TABLET 150 MG PO (20:05)
[2022-11-18] MEDS: LORazepam 1 MG TABLET PO (20:07)
[2022-11-18] MEDS: Latanoprost 0.005 % Ophth Sol 2.5 ML DROPS 1 DROP EYE-BOTH (20:12)
[2022-11-18] MEDS: Gabapentin 600 MG TABLET PO (21:59)
[2022-11-19] MEDS: Omeprazole 20 MG CAPSULE.DR PO ×2 (05:57→16:50)
[2022-11-19] MEDS: Acetaminophen 325 MG TABLET 650 MG PO (06:02)
[2022-11-19] MEDS: guaiFENesin DM 200/20/10 ML 10 ML SYRUP PO ×2 (06:06→18:17)
[2022-11-19 08:44] VITALS: BP 110/67; PULSE 71; RESP 17; O2SAT 95
[2022-11-19] MEDS: QUEtiapine Fumarate 25 MG TABLET PO ×2 (08:55→16:50)
[2022-11-19] MEDS: lamoTRIgine 100 MG TABLET 200 MG PO ×2 (08:56→20:21)
[2022-11-19] MEDS: Pramipexole Di-HCL 0.25 MG TABLET PO ×3 (08:57→20:21)
[2022-11-19] MEDS: lisinopriL 20 MG TABLET PO (08:58)
[2022-11-19] MEDS: calcium polycarbophiL TABLET 1 TAB PO (08:59)
[2022-11-19] MEDS: amLODIPine Besylate 5 MG TABLET PO (09:00)
[2022-11-19] MEDS: Multivitamin TABLET 1 TAB PO (09:00)
[2022-11-19] MEDS: Cholecalciferol (Vitamin D3) 10 MCG TABLET PO (09:01)
[2022-11-19] MEDS: Escitalopram Oxalate 10 MG TABLET PO (09:01)
[2022-11-19] MEDS: Gabapentin 600 MG TABLET PO ×3 (09:01→20:21)
[2022-11-19] MEDS: Naltrexone HCl 50 MG TABLET PO (09:02)
[2022-11-19] MEDS: Tamsulosin HCL 0.4 MG CAPSULE PO (09:02)
[2022-11-19] MEDS: Finasteride 5 MG TABLET PO (09:03)
[2022-11-19] MEDS: polyethylene glycoL 3350 17 GM POWD.PACK PO (16:49)
[2022-11-19 18:00] VITALS: BP 135/69; PULSE 72; RESP 16; TEMP 36.4; O2SAT 98
[2022-11-19] MEDS: QUEtiapine Fumarate 50 MG TABLET 150 MG PO (20:21)
[2022-11-19] MEDS: traZODone HCL 100 MG TABLET 200 MG PO (20:21)
[2022-11-19] MEDS: Melatonin 3 MG TABLET 9 MG PO (20:21)
[2022-11-19] MEDS: LORazepam 1 MG TABLET PO (20:22)
[2022-11-19] MEDS: Nortriptyline HCl 25 MG CAPSULE 100 MG PO (20:22)
--- NOTE | 2022-11-19 20:29 | HO.PSYCHPN ---
Subjective Subjective Date of Service: 11/19/22 Reason For Visit: Depression aggression Subjective Notes: Conditional Voluntary Interim History: pt withdrawn less agitated cooperative no change physical status spoke to hosp regarding wheelchair adj still no input from dds regarding placement Review of Systems fatigue worsening motor skills Mental Status Exam Mental Status Exam Narrative: Sad looking Patient Appearance: Disheveled and Perspiring Patient Orientation: Person, Place, Time and Situation Level of Consciousness: Awake and Alert Patient Behavior: Guarded, Anxious, Fatigued and Isolative Mood Description: Constricted, Depressed, Anxious, Apprehensive Affect Description: Constricted, Patient Cognition Impaired: Yes Ability to Follow Directions: good Speech Pattern: Spontaneous Speech Memory Description: Episodic Impaired Diagnostics Vital Signs (24Hr): Vital Signs - 24 hr 11/19/22 08:44 11/19/22 18:00 Temperature 97.6 F Pulse Rate 71 72 Respiratory Rate 17 16 Blood Pressure 110/67 135/69 Pulse Oximetry 95 98 Oxygen Delivery Method Room Air Room Air BMI result Body Mass Index 31.7 Labs 11/13/22 07:43 11/12/22 09:32 Imaging Radiology Impressions: ITS Impressions Chest X-Ray 10/20/22 15:45 IMPRESSION: 1. Low lung volumes with bibasilar linear disc atelectasis versus scarring. 2. No airspace consolidation or effusion. Head CT 11/08/22 12:29 IMPRESSION: No acute intracranial hemorrhage or territorial infarction. Stable chronic postoperative changes with gliosis and encephalomalacia in the right frontal and right temporal lobes. Ex vacuo dilatation of the ventricles and diffuse parenchymal volume loss. Right-sided craniotomy changes. Chest X-Ray 11/12/22 10:32 IMPRESSION: Hypoexpanded lungs with bibasilar platelike atelectasis. Brain MRI 11/12/22 13:15 IMPRESSION: 1. No demonstrated acute intracranial abnormalities. 2. Chronic encephalomalacia of the right temporal, right frontal, and left occipital lobes. Small regions of chronic encephalomalacia in the parasagittal aspects of the bilateral parietal lobes. Moderate underlying microangiopathy and generalized cerebral volume loss. Chest X-Ray 11/14/22 15:52 IMPRESSION: Low lung volumes, bibasilar subsegmental atelectasis and slight elevation of the right hemidiaphragm similar to previous exam. Medications Medications Current Medications Acetaminophen (Acetaminophen 325 Mg Tablet) 650 mg PO Q6H PRN PRN Reason: Headache/Pain Mild Scale (1-3) Last Admin: 11/19/22 06:02 Dose: 650 mg Al Hydroxide/Mg Hydroxide (Magnesium Hydrox/Alum Hydrox 30 Ml Oral.Susp) 30 ml PO Q6H PRN PRN Reason: Heartburn/Nausea Last Admin: 11/17/22 13:49 Dose: 30 ml Albuterol Sulfate (Albuterol Sulfate 90 Mcg 8 Gm Inhaler) 2 puff INHALE Q6H PRN PRN Reason: Wheezing Amlodipine Besylate (Amlodipine Besylate 5 Mg Tablet) 5 mg PO DAILY [facility]; Protocol Last Admin: 11/19/22 09:00 Dose: 5 mg Benzocaine (Throat Lozenge, Medicated Lozenge) 1 lozenge MUCOUS MEM Q2H PRN PRN Reason: Sore Throat Last Admin: 11/12/22 03:08 Dose: 1 lozenge Calcium Polycarbophil (Calcium Polycarbophil Tablet) 1 tab PO DAILY [facility] Last Admin: 11/19/22 08:59 Dose: 1 tab Docusate Sodium (Docusate Sodium 100 Mg Capsule) 100 mg PO DAILY PRN PRN Reason: constipation Last Admin: 11/14/22 21:03 Dose: 100 mg Escitalopram Oxalate (Escitalopram Oxalate 10 Mg Tablet) 10 mg PO DAILY [facility] Last Admin: 11/19/22 09:01 Dose: 10 mg Finasteride (Finasteride 5 Mg Tablet) 5 mg PO DAILY [facility] Last Admin: 11/19/22 09:03 Dose: 5 mg Gabapentin (Gabapentin 600 Mg Tablet) 600 mg PO TID [facility] Last Admin: 11/19/22 20:21 Dose: 600 mg Guaifenesin/Dextromethorphan (Guaifenesin Dm 200/20/10 Ml 10 Ml Syrup) 10 ml PO Q4H PRN PRN Reason: Cough Last Admin: 11/19/22 18:17 Dose: 10 ml Hydroxyzine HCl (Hydroxyzine Hcl 25 Mg Tablet) 25 mg PO Q6H PRN PRN Reason: Anxiety Last Admin: 11/13/22 00:26 Dose: 25 mg Lamotrigine (Lamotrigine 100 Mg Tablet) 200 mg PO BID [facility] Last Admin: 11/19/22 20:21 Dose: 200 mg Latanoprost (Latanoprost 0.005 % Ophth No 2.5 Ml Drops) 1 drop EYE-BOTH BEDTIME [facility] Last Admin: 11/18/22 20:12 Dose: 1 drop Lidocaine (Lidocaine 5 % Ointment 35 Gm) 1 appl TOPICAL QID [facility] Last Admin: 11/19/22 17:18 Dose: Not Given Lisinopril (Lisinopril 20 Mg Tablet) 20 mg PO DAILY [facility]; Protocol Last Admin: 11/19/22 08:58 Dose: 20 mg Lorazepam (Lorazepam 1 Mg Tablet) 1 mg PO BEDTIME [facility] Last Admin: 11/19/22 20:22 Dose: 1 mg Magnesium Hydroxide (Milk Of Magnesia 30 Ml Oral.Susp) 30 ml PO DAILY PRN PRN Reason: Constipation Last Admin: 10/21/22 22:46 Dose: 30 ml Melatonin (Melatonin 3 Mg Tablet) 9 mg PO BEDTIME [facility] Last Admin: 11/19/22 20:21 Dose: 9 mg Multi-Ingred Cream/Lotion/Oil/Oint (Mineral Oil/Petrolatum,White 106 Gm Tube) 1 appl TOPICAL BID [facility]; Protocol Last Admin: 11/19/22 09:04 Dose: Not Given Multivitamins/Vitamin C (Multivitamin Tablet) 1 tab PO DAILY [facility] Last Admin: 11/19/22 09:00 Dose: 1 tab Naltrexone HCl (Naltrexone Hcl 50 Mg Tablet) 50 mg PO DAILY [facility] Last Admin: 11/19/22 09:02 Dose: 50 mg Nortriptyline HCl (Nortriptyline Hcl 25 Mg Capsule) 100 mg PO BEDTIME [facility] Last Admin: 11/19/22 20:22 Dose: 100 mg Nystatin (Nystatin Powder 15 Gm Bottle) 1 appl TOPICAL BID [facility] Last Admin: 11/19/22 09:05 Dose: Not Given Omeprazole (Omeprazole 20 Mg Capsule.Dr) 20 mg PO BID@0630,1630 [facility] Last Admin: 11/19/22 16:50 Dose: 20 mg Ondansetron HCl (Ondansetron Odt 4 Mg Tab.Rapdis) 4 mg TRANSLINGU Q6H PRN PRN Reason: Nausea and Vomiting Oxybutynin Chloride (Oxybutynin Chloride Er 5 Mg Tab.Er.24) 10 mg PO DAILY [facility] Last Admin: 11/19/22 08:55 Dose: 10 mg Polyethylene Glycol (Polyethylene Glycol 3350 17 Gm Powd.Pack) 17 gm PO DAILY@1600 [facility] Last Admin: 11/19/22 16:49 Dose: 17 gm Pramipexole Dihydrochloride (Pramipexole Di-Hcl 0.25 Mg Tablet) 0.25 mg PO TID [facility] Last Admin: 11/19/22 20:21 Dose: 0.25 mg Psyllium Hydrophilic Mucilloid (Psyllium Seed 3.4 Gm Powd.Pack) 3.4 gm PO DAILY [facility] Last Admin: 11/19/22 08:56 Dose: 3.4 gm Quetiapine Fumarate (Quetiapine Fumarate 25 Mg Tablet) 25 mg PO Q4H PRN PRN Reason: Anxiety Last Admin: 11/17/22 13:49 Dose: 25 mg Quetiapine Fumarate (Quetiapine Fumarate 50 Mg Tablet) 150 mg PO BEDTIME [facility] Last Admin: 11/19/22 20:21 Dose: 150 mg Quetiapine Fumarate (Quetiapine Fumarate 25 Mg Tablet) 25 mg PO BID@0900,1700 [facility] Last Admin: 11/19/22 16:50 Dose: 25 mg Tamsulosin HCl (Tamsulosin Hcl 0.4 Mg Capsule) 0.4 mg PO DAILY [facility] Last Admin: 11/19/22 09:02 Dose: 0.4 mg Trazodone HCl (Trazodone Hcl 100 Mg Tablet) 200 mg PO BEDTIME [facility] Last Admin: 11/19/22 20:21 Dose: 200 mg Trazodone HCl (Trazodone Hcl 50 Mg Tablet) 50 mg PO BEDTIME PRN PRN Reason: Insomnia Last Admin: 11/17/22 02:58 Dose: 50 mg Vitamin D (Cholecalciferol (Vitamin D3) 10 Mcg Tablet) 10 mcg PO DAILY [facility] Last Admin: 11/19/22 09:01 Dose: 10 mcg Allergies Allergies Allergy/AdvReac Type Severity Reaction Status Date / Time fentanyl [FENTANYL] Allergy Intermediate unknown Verified 04/08/22 07:00 Assessment & Plan Assessment & Plan (1) Acute head injury without loss of consciousness: Status: Acute Code(s): S09.90XA - Unspecified injury of head, initial encounter Plan The patient is a 67-year-old male, , 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 At this moment also, he has problems of housing since he will not be able to go back to his regular intermediate.? The patient has a long history of alcohol use disorder that he was not able to process or work on it.? Plan 1. Continue with the same treatment.? 2. We will work with the social services designee and DDS for a proper discharge planning.? 3. Continue with recommendations of Wound Care. 4. Increase Seroquel up to 150 mg po qhs. 10/30/22 restart lorazepam 1 hs prn insomnia norterip inc 100 hs level in 50 s monitor ekg 11/01 continue current tx plan 11/02/22- Bedside Swallow eval. s/p choking episode on 11/01. 2021 Increase Lexapro encourage CBT skills need supportive coaching patient increasingly hopeless helpless denies active self-harm check nortriptyline level 11/05/2022 Check nortriptyline level patient on Seroquel nortriptyline Lexapro.? Needs much reassurance and support the has difficulty interacting at times secondary to a hopelessness irritability passive SI.? Patient has having difficulty maintaining his posture in his chair unclear why this is happening for discuss safety issues with nursing will need OT and potentially Pt input? 11/06/2022 Patient depressed and anxious tried to review cognitive behavioral perspectives ways to emotionally manage current situational factors.? Patient has for an extended period of time had great deal of difficulty with any emotional a mental coping strategies.? Will and lorazepam p.r.n. 0.5 mg to help with anxiety trying get clarity from DTS regarding transition to intermediate setting positive reinforcement for patient's efforts at physical conditioning becomes demoralized easily denies active self-harm 11/07 continue tx. 11/08 no changes, pt had unwitnessed fall and hit head, head CT negative 11/09 no changes 11/10 no changes 11/11 no changes 11/12/22 acute med w/u neg incentive spirometer cont medication cbt skills cont pt/ot 11/12 medical workout came back negative. No changes in current treatment 11/14/2022 Patient depressed withdrawn more fatigued 11/18/21 taper lexapro start effexor lower seroquel sec to fatigue 11/19/21 Seroquel lowered inc venlafax Reason for contiued inpatient stay Substantial Risk for: inability to function, rapid decompensation and med/psych decompensation Time Spent With Patient Time: Total time managing care of this patient today ____ minutes.
[2022-11-19] MEDS: Lidocaine 5 % Ointment 35 GM 1 APPL TOPICAL (20:35)
[2022-11-20] MEDS: Omeprazole 20 MG CAPSULE.DR PO ×2 (05:31→15:59)
[2022-11-20] MEDS: guaiFENesin DM 200/20/10 ML 10 ML SYRUP PO (05:31)
[2022-11-20 09:45] VITALS: BP 117/53; PULSE 68; RESP 20; TEMP 36.1; O2SAT 93
[2022-11-20] MEDS: Finasteride 5 MG TABLET PO (09:57)
[2022-11-20] MEDS: lamoTRIgine 100 MG TABLET 200 MG PO ×2 (09:58→21:04)
[2022-11-20] MEDS: Naltrexone HCl 50 MG TABLET PO (09:58)
[2022-11-20] MEDS: Venlafaxine HCl ER 37.5 MG CAP.ER.24H PO (09:58)
[2022-11-20] MEDS: Multivitamin TABLET 1 TAB PO (09:58)
[2022-11-20] MEDS: Gabapentin 600 MG TABLET PO ×3 (09:58→21:02)
[2022-11-20] MEDS: lisinopriL 20 MG TABLET PO (09:58)
[2022-11-20] MEDS: calcium polycarbophiL TABLET 1 TAB PO (09:58)
[2022-11-20] MEDS: Tamsulosin HCL 0.4 MG CAPSULE PO (09:58)
[2022-11-20] MEDS: Cholecalciferol (Vitamin D3) 10 MCG TABLET PO (09:58)
[2022-11-20] MEDS: Escitalopram Oxalate 10 MG TABLET PO (09:58)
[2022-11-20] MEDS: Pramipexole Di-HCL 0.25 MG TABLET PO ×3 (09:59→21:07)
[2022-11-20] MEDS: amLODIPine Besylate 5 MG TABLET PO (09:59)
[2022-11-20] MEDS: QUEtiapine Fumarate 25 MG TABLET PO ×2 (09:59→15:59)
[2022-11-20] MEDS: Nystatin Powder 15 GM BOTTLE 1 APPL TOPICAL ×2 (15:31→15:33)
[2022-11-20] MEDS: Lidocaine 5 % Ointment 35 GM 1 APPL TOPICAL ×3 (15:31→21:05)
[2022-11-20] MEDS: Mineral Oil/Petrolatum,White 106 GM Tube 1 APPL TOPICAL ×2 (15:32→22:11)
[2022-11-20] MEDS: polyethylene glycoL 3350 17 GM POWD.PACK PO (16:00)
--- NOTE | 2022-11-20 16:15 | P.PNPSI_ITS ---
Subjective Subjective Date of Service: 11/20/22 Reason For Visit: Depression aggression Subjective Notes: Conditional Voluntary Interim History: The nursing staff reported the patient had being very difficult to transfer from bed to his wheelchair. He have look at adding sedated in the afternoon. Today on interview, the patient reported that he is working hard with the occupational therapist for mobility. At this moment no worsening of depression but he looks very dysphoric. Mental Status Exam Mental Status Exam Patient Appearance: Appropriate Patient Orientation: Person and Situation Level of Consciousness: Awake and Appropriate Patient Behavior: Passive Mood Description: Withdrawn Affect Description: Constricted Patient Cognition Impaired: Yes Ability to Follow Directions: Good Speech Pattern: Clear Hallucinations: None Delusions: Not Present Thought Process: Linear Thought Content: positive for [place] and positive for Linear Judgement: Fair Diagnostics Vital Signs (24Hr): Vital Signs - 24 hr 11/19/22 18:00 11/20/22 09:45 Temperature 97.6 F 97 F Pulse Rate 72 68 Respiratory Rate 16 20 Blood Pressure 135/69 117/53 L Pulse Oximetry 98 93 Oxygen Delivery Method Room Air Room Air BMI result Body Mass Index 31.7 Labs 11/13/22 07:43 11/12/22 09:32 Imaging Radiology Impressions: ITS Impressions Chest X-Ray 10/20/22 15:45 IMPRESSION: 1. Low lung volumes with bibasilar linear disc atelectasis versus scarring. 2. No airspace consolidation or effusion. Head CT 11/08/22 12:29 IMPRESSION: No acute intracranial hemorrhage or territorial infarction. Stable chronic postoperative changes with gliosis and encephalomalacia in the right frontal and right temporal lobes. Ex vacuo dilatation of the ventricles and diffuse parenchymal volume loss. Right-sided craniotomy changes. Chest X-Ray 11/12/22 10:32 IMPRESSION: Hypoexpanded lungs with bibasilar platelike atelectasis. Brain MRI 11/12/22 13:15 IMPRESSION: 1. No demonstrated acute intracranial abnormalities. 2. Chronic encephalomalacia of the right temporal, right frontal, and left occipital lobes. Small regions of chronic encephalomalacia in the parasagittal aspects of the bilateral parietal lobes. Moderate underlying microangiopathy and generalized cerebral volume loss. Chest X-Ray 11/14/22 15:52 IMPRESSION: Low lung volumes, bibasilar subsegmental atelectasis and slight elevation of the right hemidiaphragm similar to previous exam. Medications Medications Current Medications Acetaminophen (Acetaminophen 325 Mg Tablet) 650 mg PO Q6H PRN PRN Reason: Headache/Pain Mild Scale (1-3) Last Admin: 11/19/22 06:02 Dose: 650 mg Al Hydroxide/Mg Hydroxide (Magnesium Hydrox/Alum Hydrox 30 Ml Oral.Susp) 30 ml PO Q6H PRN PRN Reason: Heartburn/Nausea Last Admin: 11/17/22 13:49 Dose: 30 ml Albuterol Sulfate (Albuterol Sulfate 90 Mcg 8 Gm Inhaler) 2 puff INHALE Q6H PRN PRN Reason: Wheezing Amlodipine Besylate (Amlodipine Besylate 5 Mg Tablet) 5 mg PO DAILY [facility]; Protocol Last Admin: 11/20/22 09:59 Dose: 5 mg Benzocaine (Throat Lozenge, Medicated Lozenge) 1 lozenge MUCOUS MEM Q2H PRN PRN Reason: Sore Throat Last Admin: 11/12/22 03:08 Dose: 1 lozenge Calcium Polycarbophil (Calcium Polycarbophil Tablet) 1 tab PO DAILY [facility] Last Admin: 11/20/22 09:58 Dose: 1 tab Docusate Sodium (Docusate Sodium 100 Mg Capsule) 100 mg PO DAILY PRN PRN Reason: constipation Last Admin: 11/14/22 21:03 Dose: 100 mg Escitalopram Oxalate (Escitalopram Oxalate 10 Mg Tablet) 10 mg PO DAILY [facility] Last Admin: 11/20/22 09:58 Dose: 10 mg Finasteride (Finasteride 5 Mg Tablet) 5 mg PO DAILY [facility] Last Admin: 11/20/22 09:57 Dose: 5 mg Gabapentin (Gabapentin 600 Mg Tablet) 600 mg PO TID [facility] Last Admin: 11/20/22 15:59 Dose: 600 mg Guaifenesin/Dextromethorphan (Guaifenesin Dm 200/20/10 Ml 10 Ml Syrup) 10 ml PO Q4H PRN PRN Reason: Cough Last Admin: 11/20/22 05:31 Dose: 10 ml Hydroxyzine HCl (Hydroxyzine Hcl 25 Mg Tablet) 25 mg PO Q6H PRN PRN Reason: Anxiety Last Admin: 11/13/22 00:26 Dose: 25 mg Lamotrigine (Lamotrigine 100 Mg Tablet) 200 mg PO BID [facility] Last Admin: 11/20/22 09:58 Dose: 200 mg Latanoprost (Latanoprost 0.005 % Ophth No 2.5 Ml Drops) 1 drop EYE-BOTH BEDTIME [facility] Last Admin: 11/19/22 21:53 Dose: Not Given Lidocaine (Lidocaine 5 % Ointment 35 Gm) 1 appl TOPICAL QID [facility] Last Admin: 11/20/22 16:00 Dose: Not Given Lisinopril (Lisinopril 20 Mg Tablet) 20 mg PO DAILY [facility]; Protocol Last Admin: 11/20/22 09:58 Dose: 20 mg Lorazepam (Lorazepam 1 Mg Tablet) 1 mg PO BEDTIME [facility] Last Admin: 11/19/22 20:22 Dose: 1 mg Magnesium Hydroxide (Milk Of Magnesia 30 Ml Oral.Susp) 30 ml PO DAILY PRN PRN Reason: Constipation Last Admin: 10/21/22 22:46 Dose: 30 ml Melatonin (Melatonin 3 Mg Tablet) 9 mg PO BEDTIME [facility] Last Admin: 11/19/22 20:21 Dose: 9 mg Multi-Ingred Cream/Lotion/Oil/Oint (Mineral Oil/Petrolatum,White 106 Gm Tube) 1 appl TOPICAL BID [facility]; Protocol Last Admin: 11/20/22 15:32 Dose: 1 appl Multivitamins/Vitamin C (Multivitamin Tablet) 1 tab PO DAILY [facility] Last Admin: 11/20/22 09:58 Dose: 1 tab Naltrexone HCl (Naltrexone Hcl 50 Mg Tablet) 50 mg PO DAILY [facility] Last Admin: 11/20/22 09:58 Dose: 50 mg Nortriptyline HCl (Nortriptyline Hcl 25 Mg Capsule) 100 mg PO BEDTIME [facility] Last Admin: 11/19/22 20:22 Dose: 100 mg Nystatin (Nystatin Powder 15 Gm Bottle) 1 appl TOPICAL BID [facility] Last Admin: 11/20/22 15:33 Dose: 1 appl Omeprazole (Omeprazole 20 Mg Capsule.Dr) 20 mg PO BID@0630,1630 [facility] Last Admin: 11/20/22 15:59 Dose: 20 mg Ondansetron HCl (Ondansetron Odt 4 Mg Tab.Rapdis) 4 mg TRANSLINGU Q6H PRN PRN Reason: Nausea and Vomiting Oxybutynin Chloride (Oxybutynin Chloride Er 5 Mg Tab.Er.24) 10 mg PO DAILY [facility] Last Admin: 11/20/22 09:57 Dose: 10 mg Polyethylene Glycol (Polyethylene Glycol 3350 17 Gm Powd.Pack) 17 gm PO DAILY@1600 [facility] Last Admin: 11/20/22 16:00 Dose: 17 gm Pramipexole Dihydrochloride (Pramipexole Di-Hcl 0.25 Mg Tablet) 0.25 mg PO TID [facility] Last Admin: 11/20/22 15:59 Dose: 0.25 mg Psyllium Hydrophilic Mucilloid (Psyllium Seed 3.4 Gm Powd.Pack) 3.4 gm PO DAILY [facility] Last Admin: 11/20/22 09:59 Dose: 3.4 gm Quetiapine Fumarate (Quetiapine Fumarate 25 Mg Tablet) 25 mg PO Q4H PRN PRN Reason: Anxiety Last Admin: 11/17/22 13:49 Dose: 25 mg Quetiapine Fumarate (Quetiapine Fumarate 50 Mg Tablet) 150 mg PO BEDTIME [facility] Last Admin: 11/19/22 20:21 Dose: 150 mg Quetiapine Fumarate (Quetiapine Fumarate 25 Mg Tablet) 25 mg PO BID@0900,1700 [facility] Last Admin: 11/20/22 15:59 Dose: 25 mg Tamsulosin HCl (Tamsulosin Hcl 0.4 Mg Capsule) 0.4 mg PO DAILY [facility] Last Admin: 11/20/22 09:58 Dose: 0.4 mg Trazodone HCl (Trazodone Hcl 100 Mg Tablet) 200 mg PO BEDTIME [facility] Last Admin: 11/19/22 20:21 Dose: 200 mg Trazodone HCl (Trazodone Hcl 50 Mg Tablet) 50 mg PO BEDTIME PRN PRN Reason: Insomnia Last Admin: 11/17/22 02:58 Dose: 50 mg Venlafaxine HCl (Venlafaxine Hcl Er 37.5 Mg Cap.Er.24h) 37.5 mg PO DAILY [facility] Last Admin: 11/20/22 09:58 Dose: 37.5 mg Vitamin D (Cholecalciferol (Vitamin D3) 10 Mcg Tablet) 10 mcg PO DAILY [facility] Last Admin: 11/20/22 09:58 Dose: 10 mcg Allergies Allergies Allergy/AdvReac Type Severity Reaction Status Date / Time fentanyl [FENTANYL] Allergy Intermediate unknown Verified 04/08/22 07:00 Assessment & Plan Assessment & Plan (1) Acute head injury without loss of consciousness: Status: Acute Code(s): S09.90XA - Unspecified injury of head, initial encounter Plan The patient is a 67-year-old male, , 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 At this moment also, he has problems of housing since he will not be able to go back to his regular [place] [facility].? The patient has a long history of alcohol use disorder that he was not able to process or work on it.? Plan 1. Continue with the same treatment.? 2. We will work with the social science research assistant and DDS for a proper discharge planning.? 3. Continue with recommendations of Wound Care. 4. Increase Seroquel up to 150 mg po qhs. 10/30/22 restart lorazepam 1 hs prn insomnia norterip inc 100 hs level in 50 s monitor ekg 11/01 continue current tx plan 11/02/22- Bedside Swallow eval. s/p choking episode on 11/01. 2021 Increase Lexapro encourage CBT skills need supportive coaching patient i ncreasingly hopeless helpless denies active self-harm check nortriptyline level 11/05/2022 Check nortriptyline level patient on Seroquel nortriptyline Lexapro.? Needs much reassurance and support the has difficulty interacting at times secondary to a hopelessness irritability passive SI.? Patient has having difficulty maintaining his posture in his chair unclear why this is happening for discuss safety issues with nursing will need OT and potentially Pt input? 11/06/2022 Patient depressed and anxious tried to review cognitive behavioral perspectives ways to emotionally manage current situational factors.? Patient has for an extended period of time had great deal of difficulty with any emotional a mental coping strategies.? Will and lorazepam p.r.n. 0.5 mg to help with anxiety trying get clarity from DTS regarding transition to [place] [facility] setting positive reinforcement for patient's efforts at physical conditioning becomes demoralized easily denies active self-harm 11/07 continue tx. 11/08 no changes, pt had unwitnessed fall and hit head, head CT negative 11/09 no changes 11/10 no changes 11/11 no changes 11/12/22 acute med w/u neg incentive spirometer cont medication cbt skills cont pt/ot 11/12 medical workout came back negative. No changes in current treatment 11/14/2022 Patient depressed withdrawn more fatigued 11/18/21 taper lexapro start effexor lower seroquel sec to fatigue 11/19/21 Seroquel lowered inc venlafax 11/20/2021 no changes in medications Reason for contiued inpatient stay Substantial Risk for: inability to function, rapid decompensation and med/psych decompensation Time Spent With Patient Time: Total time managing care of this patient today ____ minutes.
[2022-11-20 18:00] VITALS: BP 138/72; PULSE 62; RESP 18; TEMP 36.3; O2SAT 96
[2022-11-20] MEDS: Latanoprost 0.005 % Ophth Sol 2.5 ML DROPS 1 DROP EYE-BOTH (21:05)
[2022-11-20] MEDS: LORazepam 1 MG TABLET PO (21:05)
[2022-11-20] MEDS: Nortriptyline HCl 25 MG CAPSULE 100 MG PO (21:06)
[2022-11-20] MEDS: QUEtiapine Fumarate 50 MG TABLET 150 MG PO (21:07)
[2022-11-20] MEDS: Acetaminophen 325 MG TABLET 650 MG PO (21:07)
[2022-11-20] MEDS: traZODone HCL 100 MG TABLET 200 MG PO (21:08)
[2022-11-20] MEDS: Melatonin 3 MG TABLET 9 MG PO (21:09)
[2022-11-21] MEDS: Omeprazole 20 MG CAPSULE.DR PO ×2 (06:18→16:15)
[2022-11-21 07:30] VITALS: BP 119/59; PULSE 87; RESP 15; TEMP 36.5; O2SAT 93
[2022-11-21] MEDS: lamoTRIgine 100 MG TABLET 200 MG PO ×2 (10:01→20:40)
[2022-11-21] MEDS: QUEtiapine Fumarate 25 MG TABLET PO ×2 (10:01→16:15)
[2022-11-21] MEDS: calcium polycarbophiL TABLET 1 TAB PO (10:02)
[2022-11-21] MEDS: Finasteride 5 MG TABLET PO (10:02)
[2022-11-21] MEDS: Tamsulosin HCL 0.4 MG CAPSULE PO (10:02)
[2022-11-21] MEDS: Venlafaxine HCl ER 37.5 MG CAP.ER.24H PO (10:02)
[2022-11-21] MEDS: Escitalopram Oxalate 10 MG TABLET PO (10:02)
[2022-11-21] MEDS: Naltrexone HCl 50 MG TABLET PO (10:02)
[2022-11-21] MEDS: Cholecalciferol (Vitamin D3) 10 MCG TABLET PO (10:02)
[2022-11-21] MEDS: Gabapentin 600 MG TABLET PO ×3 (10:02→20:41)
[2022-11-21] MEDS: Pramipexole Di-HCL 0.25 MG TABLET PO ×3 (10:03→20:42)
[2022-11-21] MEDS: lisinopriL 20 MG TABLET PO (10:03)
[2022-11-21] MEDS: amLODIPine Besylate 5 MG TABLET PO (10:03)
[2022-11-21] MEDS: Multivitamin TABLET 1 TAB PO (10:04)
[2022-11-21] MEDS: polyethylene glycoL 3350 17 GM POWD.PACK PO (16:15)
--- NOTE | 2022-11-21 17:13 | MHC.SL.IMP ---
Date of Plan of Treatment: 11/21/22 Onset of Symptoms/Illness: 11/03/22 Date Treatment Started: 11/21/22 Admitting Diagnosis: Pt is admitted in the inpatient geriatric psych unit. Per MD note, pt is on his psi after TBI, has hx of alcohol use disorder and long hx of depression with suicidal ideation. Primary Speech & Language Diagnosis: R13.12 Oropharyngeal Phase Dysphagia Reason for Today's Visit: 30049 Modified Barium Swallow Study Pre-evaluation Dietary Consistencies: Chopped/Advanced (NDD3) Pre-evaluation Liquid Consistency: Thin Pre-evaluation Medication Administration: Whole with Liquid Medical History: Modified Barium Swallow Study Fluoroscopic Evaluation of Swallowing Function CPT Code 81557 Evaluation Year: 2022 Reason for Study: Pt w/ difficulty swallowing solids. Referring Physician: Addy Haskins MD Evaluating Clinician: Maddy Harris MA, [facility]DAIRY STORE MANAGER Study Number: 1 Patient Name: Samanta Barros Status: Inpatient, Stretcher Age: 67 Gender: Male MEDICAL HISTORY: Past Medical History Medical History Alcohol abuse Alcohol use disorder, severe, in sustained remission Anxiety Cognitive and neurobehavioral dysfunction following brain injury Depression Depression Hernia HTN (hypertension) Hypertension Major depressive disorder, recurrent Major depressive disorder, recurrent severe without psychotic features Seizure disorder Subdural hematoma Subdural hematoma TBI (traumatic brain injury) TBI (traumatic brain injury) TIA (transient ischemic attack) Surgical History H/O brain surgery H/O craniotomy H/O umbilical hernia repair History of cholecystectomy History of hip replacement S/P cholecystectomy Current (pre-evaluation) Intake/Diet: Route: PO Diet Grade: Chopped/Advanced (NDD3) Liquid Consistencies: Thin Pre-Study Functional Oral Intake Scale (FOIS): 5- Total oral intake of multiple consistencies requiring special preparation Pain: None reported at time of study SUBJECTIVE: Pt is a 67 year old male admitted to the inpatient geriatric psych unit. Per RN note 11/02 pt was eating mariana crackers while laying down and was choking. He was reportedly placed in full upright position and was able to clear the cracker out of his throat. RN and hospitalist discussed with pt risk of eating when laying down, order also placed for DAIRY STORE MANAGER consult. Pt was subsequently seen by DAIRY STORE MANAGER for bedside dysphagia evaluation on 11/03/22. Pt's oral [facility] exam was WFL. Pt reported having two choking episodes he recalls on foods such as rice and potato chips. He reported that a spoonful of rice felt stuck and that he had to spit it out. Pt participated in PO trials, tolerated dry mariana crackers and juice by straw. Pt was observed to take very large bites, almost taking an entire mariana cracker at once. Pt was cued to take smaller bites, which he responded to. DAIRY STORE MANAGER discussed safe eating behaviors with pt: Recommend taking small bites, chewing food well, and moistening foods with sauces and gravies. Recommend avoiding very dry foods, granulous or crumbly foods, and sticky textures. Recommend alternating bites of food with sips of liquid. DAIRY STORE MANAGER reiterated importance of sitting upright at 90 degrees whenever pt is eating or drinking; not eating or drinking when laying down or in reclined position. Pt mentioned that large pills are difficult for him to swallow. Recommended large pills to be crushed, small pills whole with PUREE. Pt continued on regular diet with thin liquids and precautions. A day later on 11/04 nursing documented that pt refused to allow medications to be crushed and placed in puree, stated I don't need that . Pt swallowed pills whole with water, no choking noted at that time. This morning 11/21 nurse reported pt has been ?coughing and sputtering on food? and isn?t having any trouble with liquids. Pt repotedly had a ?significant near choking episode? this morning. Subsequently order was placed for urgent MBSS. Per current diet order, pt is now on c hopped diet and has 1:1 supervision when eating. Nurse reported pt can point to his throat where food feels stuck. When arriving for this exam, pt again endorsed that ?food feels stuck.? Food and Liquid Trials: Oral Impairment: Lip Closure: 0=No labial escape Oral Impairment: Tongue Control During Bolus Hold: 1=Escape to lateral buccal cavity/floor of mouth (FOM) Oral Impairment: Bolus Preparation/Mastication: 1=Slow prolonged chewing/mashing with complete re-collection Oral Impairment: Bolus Transport/Lingual Motion: 2=Slowed tongue motion Oral Impairment: Oral Residue: 2=Residue collection on oral structures Oral Impairment:Initiation of Pharyngeal Swallow: 2=Bolus head at posterior laryngeal surface of epiglottis Pharyngeal Impairment: Soft Palate Elevation: 0=No bolus between soft palate (SP)/pharyngeal wall (PW) Pharyngeal Impairment: Laryngeal Elevation: 1=Partial thyroid cartilage/arytenoids to epiglottic petiole movement Pharyngeal Impairment: Anterior Hyoid Excursion: 1=Partial anterior movement Pharyngeal Impairment: Epiglottic Movement: 1=Partial inversion Pharyngeal Impairment: Laryngeal Vestibular Closure:: 1=Incomplete: narrow column air/contrast in laryngeal vestibule Pharyngeal Impairment: Pharyngeal Stripping Wave: 1=Present: diminished Pharyngeal Impairment: Pharyngeal Contraction: Did not test Pharyngeal Impairment: Pharyngoesophageal Segment Opening: Did not test Pharyngeal Impairment: Tongue Base (TB) Retraction: 1=Trace column of contrast/air between TB and posterior PW Pharyngeal Impairment: Pharyngeal Residue: 2=Collection of residue within or on pharyngeal structures Pharyngeal Impairment: Esophageal Clearance Upright Position: Did not test Impressions and Recommendations Clinical Observations: OBJECTIVE: Time-out: performed at 3:10 Evaluation Start: 3:00; Stop: 3:06 Patient Positioning: Seated 70-90 degrees Viewing Planes: LATERAL ONLY Contrast: MBSImP? Standardized Protocol using commercially prepared, standardized Barium viscosities, including: Varibar? THIN LIQUID (40% w/v, <15 cps) , 1/2 Shortbread Cookie (1 x1 x.25 ) MBSImP ID: [id number] MBSImP Results: Lip closure for intraoral bolus containment resulted in no labial escape. Tongue control during bolus hold allowed bolus escape to the lateral buccal cavity/floor of mouth. Bolus preparation and mastication resulted in slow, prolonged chewing/mashing but with complete re-collection. Bolus transport/lingual motion was with slowed tongue motion. Oral residue was a collection on oral structures. Initiation of the pharyngeal swallow occurred as the bolus head was at the posterior laryngeal surface of the epiglottis. Soft palate elevation resulted in no bolus between the soft palate and the pharyngeal wall. Laryngeal elevation was decreased, with partial superior movement of the thyroid cartilage/partial approximation of the arytenoids to the epiglottic petiole. Anterior hyoid excursion demonstrated partial anterior movement. Epiglottic movement resulted in partial inversion. Laryngeal vestibular closure was incomplete, with a narrow column of air/contrast noted within the laryngeal vestibule at the height of the swallow. Pharyngeal stripping wave was present, but diminished. Pharyngeal contraction could not be determined due to logistical reasons not related to physiologic impairment. Pharyngoesophageal segment opening could not be assessed due to logistical reasons not related to physiologic impairment. Tongue base retraction allowed a trace column of contrast or air between the retracted tongue base and the posterior pharyngeal wall. Pharyngeal residue was a collection of residue within or on pharyngeal structures. Esophageal clearance in the upright position could not be assessed due to logistical reasons not related to physiologic impairment. Oral Impairment Score: 8 Pharyngeal Impairment Score: 7 (absence of score, component 13component 14) Esophageal Impairment Score: --- (absence of score, component 17) Laryngeal Penetration and Aspiration: Penetration was observed in today's study. Thin Contrast entered the airway, remained above the vocal folds, and was ejected from the airway. ASSESSMENT: Clinician Assessment: This exam was conducted by a multidisciplinary team, which included a speech pathologist, radiologist, and integration technician. Pt was able to feed herself without difficulty. Pt trialed the following liquid and solid consistencies: thin liquid barium by cup, pureed solid (mixture applesauce with barium paste), ground solid (mixture chicken salad with barium paste), regular solid (Kim Doone cookie coated with barium paste), whole barium pill tablet with sips of water by cup. Pt demonstrated good labial seal. There was escape of bolus to the floor of mouth. Posterior lingual movements were delayed and moderately slowed for the transport of bolus. Mastication was moderately prolonged. There was mild residue on the palate and tongue with trials of pureed and ground solids. Increase in oral residuals to moderate degree with trials of regular solid. Multiple dry swallows reduced oral residue. Pharyngeal swallow trigger initiated as bolus head reached the posterior laryngeal surface of the epiglottis. There was no nasopharyngeal reflux. Partial laryngeal elevation with partial anterior hyoid excursion and partial epiglottic inversion. Laryngeal vestibular closure was incomplete with resultant penetration of liquids. Thin liquid entered the airway above the vocal folds intermittently and ejected. During one instance, there was trace residue coating the posterior epiglottis and into the airway, which pt cleared with a throat clear. Trace oral and pharyngeal residue with sips of liquid spontaneously cleared. There was mild pharyngeal retention with soft solids of pureed and ground consistencies. With harder solids, there was an increase in pharyngeal residue, with 50% of bolus collecting on the tongue base, in the valleculae, and on the posterior pharyngeal wall after the initial swallow. Pt reduced residue with multiple dry swallows. After dry swallows, pt took sip of thin liquid, which was even more effective in reducing pharyngeal residue. Pt swallowed barium pill tablet with sips of water. Pill tablet got hung up in the valleculae and pt was instructed to continue taking sips of water, which cleared the tablet from the valleculae. Tablet subsequently passed through the pharynx. No evidence of aspiration during this exam. Liquid Intake Recommendation: Thin Liquid Intake Strategies: Small Sips, No Straws Dietary Recommendations: Grnd/Mech Altered (NDD2) Medication Administration: Crushed with Puree Please contact the pharmacy regarding appropriate crushable or liquid drug formulations that are available whenever modified delivery is recommended. Compensatory Strategies Recommended: Sitting Upright (90 deg), Double Swallow, No Straw, Small Bites and Sips, Rate of Ingestion Change, Avoid Specific Foods Supervision during eating and or drinking: Total Supervision (1:1) Recommended Treatments: Compens. Strategy Educat. Recommendation for Speech Therapy: Inpatient Speech Therapy Text Comment: PLAN: Intake Recommendations: Route: PO Diet Grade: Mechanical Soft Liquid Consistencies: Thin Post-Study Functional Oral Intake Scale (FOIS): 5- Total oral intake of multiple consistencies requiring special preparation This exam revealed moderate oropharyngeal phase dysphagia, characterized by slowed and prolonged oral phase, increase in oral and pharyngeal residue with harder solids, and incomplete laryngeal vestibular closure with resultant penetration of thin liquid. Pt was able to reduce pharyngeal retention with multiple dry swallows followed by sips of liquid. No evidence of aspiration during this exam, however, presence of penetration puts pt at risk of aspiration. Recommend modified diet GROUND/MECHANICALLY ALTERED (NDD2) solids with THIN liquids and ASPIRATION PRECAUTIONS: -Continue total 1:1 supervision during PO intake, provide pt w/ cues as needed -Take small bites of food -Moisten food with sauces and gravies, ensuring sauces are mixed and blended in well with food -Chew food well -Avoid hard to chew solids, sticky textures, mixed consistencies, and foods that break up into small pieces (rice, popcorn, nuts) -Follow each bite with 2-3 additional dry swallow to promote pharyngeal clearance -After dry swallows, take sips of liquid to promote pharyngeal clearance -Take small, individual sips of liquid -Avoid taking consecutive sips -Avoid the use of straws -Follow sips with a throat clear then dry swallow -Maintain upright 90 degree position while eating and drinking and for at least 45 minutes afterwards -Ensure a rigorous daily oral care routine before first meal and after each subsequent meal -Crush pills in puree when possible (consult with pharmacy). If pill cannot be crushed, take additional sips of liquid after taking the pill to promote pharyngeal clearance. Take pills one at a time. Recommend continue ST intervention at bedside to provide further education RE: MBSS results, risks of aspiration, dietary textures, and recommended strategies. Recommend pt to continue monitoring his dysphagia. If there are any changes or worsening of symptoms, consult with hospitalist or PCP, at which point a re-evaluation may be indicated. Therapy Recommendations: Therapy will be continued Prognosis for Improvement: The prognosis for the patient to meet nutritional needs by mouth is fair-good based on degree of impairment. Steerer Goals: ? The patient will tolerate the least restrictive diet with a safe/efficient swallow to maintain adequate nutrition and hydration. ? The patient and/or family will participate in further education for swallowing goals. Short Term Goals: ? Diet - The patient will tolerate a mechanical soft diet with thin liquids without signs or symptoms of penetration/aspiration 100% of the time. - The patient will participate in therapeutic PO trials with the DAIRY STORE MANAGER. ? Guidelines - The patient will comply with/recall the following guidelines/strategies 100% of the time with minimal cuing: Bolus Volume Change, Rate of Ingestion Change, Liquid Wash, Additional Swallow(s) per Bolus, Throat Clear, No Straws. ? Education - The patient, nurse will verbalize/demonstrate understanding of the results of this evaluation, the above recommendations, and the swallowing guidelines. Clinician - Supplemental, Miscellaneous Communication: It is important to note MBSS objective studies are snapshots in time and Patient function might vary with factors such as time of day or concomitant medical conditions. For this reason, the final treatment plan for this patient should rest with their medical care team. Additional recommendations should be considered with the totality of the Patient in mind. Thank for the opportunity to participate in the care of this patient. If you have any questions about the content of this report, please contact the [facility] at [facility]. Education: Education regarding findings from today's study and plans for therapy were provided to Patient only through Verbal Instruction. Understanding was expressed by the Patient only. Machine Precision Engraver Clinician/Clinical Fellow: No Supervisory Statement: N/A Speech Language Pathologist: Maddy Harris M.A., [facility]-DAIRY STORE MANAGER
[2022-11-21 18:00] VITALS: BP 152/70; PULSE 74; RESP 16; TEMP 36; O2SAT 96
[2022-11-21] MEDS: Melatonin 3 MG TABLET 9 MG PO (20:34)
[2022-11-21] MEDS: Nortriptyline HCl 25 MG CAPSULE 100 MG PO (20:36)
[2022-11-21] MEDS: traZODone HCL 100 MG TABLET 200 MG PO (20:39)
[2022-11-21] MEDS: LORazepam 1 MG TABLET PO (20:39)
[2022-11-21] MEDS: QUEtiapine Fumarate 50 MG TABLET 150 MG PO (20:45)
[2022-11-21] MEDS: Latanoprost 0.005 % Ophth Sol 2.5 ML DROPS 1 DROP EYE-BOTH (21:06)
[2022-11-21] MEDS: Mineral Oil/Petrolatum,White 106 GM Tube 1 APPL TOPICAL (21:06)
[2022-11-21] MEDS: Lidocaine 5 % Ointment 35 GM 1 APPL TOPICAL ×2 (21:06→22:57)
[2022-11-21] MEDS: Acetaminophen 325 MG TABLET 650 MG PO (21:07)
--- NOTE | 2022-11-21 22:13 | HO.PSYCHPN ---
Subjective Subjective Date of Service: 11/21/22 Reason For Visit: Depression aggression Subjective Notes: Conditional Voluntary Interim History: Pt seen barium swallow ordered secondary to choking episode continued difficulty with motor fx mood anxious flat Medication Compliance: Yes Mental Status Exam Mental Status Exam Patient Appearance: Appropriate Patient Orientation: Person, Place and Situation Level of Consciousness: Awake and Appropriate Patient Behavior: Passive and Fatigued Mood Description: Withdrawn, Depressed, Blunted and Apprehensive Affect Description: Constricted Patient Cognition Impaired: Yes Ability to Follow Directions: Good Speech Pattern: Clear Memory Description: Episodic Impaired and Working Impaired Hallucinations: None Delusions: Not Present Thought Process: Linear Thought Content: positive for [place] and positive for Linear Judgement: Fair Judgement and Insight: difficulty with working memory Diagnostics Vital Signs (24Hr): Vital Signs - 24 hr 11/21/22 07:30 Temperature 97.7 F Pulse Rate 87 Respiratory Rate 15 Blood Pressure 119/59 L Pulse Oximetry 93 Oxygen Delivery Method Room Air BMI result Body Mass Index 31.7 Labs 11/13/22 07:43 11/12/22 09:32 Imaging Radiology Impressions: ITS Impressions Chest X-Ray 10/20/22 15:45 IMPRESSION: 1. Low lung volumes with bibasilar linear disc atelectasis versus scarring. 2. No airspace consolidation or effusion. Head CT 11/08/22 12:29 IMPRESSION: No acute intracranial hemorrhage or territorial infarction. Stable chronic postoperative changes with gliosis and encephalomalacia in the right frontal and right temporal lobes. Ex vacuo dilatation of the ventricles and diffuse parenchymal volume loss. Right-sided craniotomy changes. Chest X-Ray 11/12/22 10:32 IMPRESSION: Hypoexpanded lungs with bibasilar platelike atelectasis. Brain MRI 11/12/22 13:15 IMPRESSION: 1. No demonstrated acute intracranial abnormalities. 2. Chronic encephalomalacia of the right temporal, right frontal, and left occipital lobes. Small regions of chronic encephalomalacia in the parasagittal aspects of the bilateral parietal lobes. Moderate underlying microangiopathy and generalized cerebral volume loss. Chest X-Ray 11/14/22 15:52 IMPRESSION: Low lung volumes, bibasilar subsegmental atelectasis and slight elevation of the right hemidiaphragm similar to previous exam. Modified Barium Swallow 11/21/22 15:11 IMPRESSION: Laryngeal penetration on several occasions but no laryngeal aspiration. Mild retention of solid food in the valleculae which cleared with subsequent oral administration of water or thin barium. Correlate with speech therapy results. Medications Medications Current Medications Acetaminophen (Acetaminophen 325 Mg Tablet) 650 mg PO Q6H PRN PRN Reason: Headache/Pain Mild Scale (1-3) Last Admin: 11/21/22 21:07 Dose: 650 mg Al Hydroxide/Mg Hydroxide (Magnesium Hydrox/Alum Hydrox 30 Ml Oral.Susp) 30 ml PO Q6H PRN PRN Reason: Heartburn/Nausea Last Admin: 11/17/22 13:49 Dose: 30 ml Albuterol Sulfate (Albuterol Sulfate 90 Mcg 8 Gm Inhaler) 2 puff INHALE Q6H PRN PRN Reason: Wheezing Amlodipine Besylate (Amlodipine Besylate 5 Mg Tablet) 5 mg PO DAILY [facility]; Protocol Last Admin: 11/21/22 10:03 Dose: 5 mg Benzocaine (Throat Lozenge, Medicated Lozenge) 1 lozenge MUCOUS MEM Q2H PRN PRN Reason: Sore Throat Last Admin: 11/12/22 03:08 Dose: 1 lozenge Calcium Polycarbophil (Calcium Polycarbophil Tablet) 1 tab PO DAILY [facility] Last Admin: 11/21/22 10:02 Dose: 1 tab Docusate Sodium (Docusate Sodium 100 Mg Capsule) 100 mg PO DAILY PRN PRN Reason: constipation Last Admin: 11/14/22 21:03 Dose: 100 mg Escitalopram Oxalate (Escitalopram Oxalate 5 Mg Tablet) 5 mg PO DAILY [facility] Finasteride (Finasteride 5 Mg Tablet) 5 mg PO DAILY [facility] Last Admin: 11/21/22 10:02 Dose: 5 mg Gabapentin (Gabapentin 600 Mg Tablet) 300 mg PO TID [facility] Guaifenesin/Dextromethorphan (Guaifenesin Dm 200/20/10 Ml 10 Ml Syrup) 10 ml PO Q4H PRN PRN Reason: Cough Last Admin: 11/20/22 05:31 Dose: 10 ml Hydroxyzine HCl (Hydroxyzine Hcl 25 Mg Tablet) 25 mg PO Q6H PRN PRN Reason: Anxiety Last Admin: 11/13/22 00:26 Dose: 25 mg Lamotrigine (Lamotrigine 100 Mg Tablet) 200 mg PO BID [facility] Last Admin: 11/21/22 20:40 Dose: 200 mg Latanoprost (Latanoprost 0.005 % Ophth No 2.5 Ml Drops) 1 drop EYE-BOTH BEDTIME [facility] Last Admin: 11/21/22 21:06 Dose: 1 drop Lidocaine (Lidocaine 5 % Ointment 35 Gm) 1 appl TOPICAL QID [facility] Last Admin: 11/21/22 21:06 Dose: 1 appl Lisinopril (Lisinopril 20 Mg Tablet) 20 mg PO DAILY [facility]; Protocol Last Admin: 11/21/22 10:03 Dose: 20 mg Lorazepam (Lorazepam 1 Mg Tablet) 1 mg PO BEDTIME [facility] Last Admin: 11/21/22 20:39 Dose: 1 mg Magnesium Hydroxide (Milk Of Magnesia 30 Ml Oral.Susp) 30 ml PO DAILY PRN PRN Reason: Constipation Last Admin: 10/21/22 22:46 Dose: 30 ml Melatonin (Melatonin 3 Mg Tablet) 9 mg PO BEDTIME [facility] Last Admin: 11/21/22 20:34 Dose: 9 mg Multi-Ingred Cream/Lotion/Oil/Oint (Mineral Oil/Petrolatum,White 106 Gm Tube) 1 appl TOPICAL BID [facility]; Protocol Last Admin: 11/21/22 21:06 Dose: 1 appl Multivitamins/Vitamin C (Multivitamin Tablet) 1 tab PO DAILY [facility] Last Admin: 11/21/22 10:04 Dose: 1 tab Naltrexone HCl (Naltrexone Hcl 50 Mg Tablet) 50 mg PO DAILY [facility] Last Admin: 11/21/22 10:02 Dose: 50 mg Nortriptyline HCl (Nortriptyline Hcl 25 Mg Capsule) 50 mg PO BEDTIME [facility] Nystatin (Nystatin Powder 15 Gm Bottle) 1 appl TOPICAL BID [facility] Last Admin: 11/21/22 10:12 Dose: Not Given Omeprazole (Omeprazole 20 Mg Capsule.Dr) 20 mg PO BID@0630,1630 [facility] Last Admin: 11/21/22 16:15 Dose: 20 mg Ondansetron HCl (Ondansetron Odt 4 Mg Tab.Rapdis) 4 mg TRANSLINGU Q6H PRN PRN Reason: Nausea and Vomiting Oxybutynin Chloride (Oxybutynin Chloride Er 5 Mg Tab.Er.24) 10 mg PO DAILY [facility] Last Admin: 11/21/22 10:02 Dose: 10 mg Polyethylene Glycol (Polyethylene Glycol 3350 17 Gm Powd.Pack) 17 gm PO DAILY@1600 [facility] Last Admin: 11/21/22 16:15 Dose: 17 gm Pramipexole Dihydrochloride (Pramipexole Di-Hcl 0.25 Mg Tablet) 0.25 mg PO TID [facility] Last Admin: 11/21/22 20:42 Dose: 0.25 mg Psyllium Hydrophilic Mucilloid (Psyllium Seed 3.4 Gm Powd.Pack) 3.4 gm PO DAILY [facility] Last Admin: 11/21/22 09:58 Dose: 3.4 gm Quetiapine Fumarate (Quetiapine Fumarate 25 Mg Tablet) 25 mg PO Q4H PRN PRN Reason: Anxiety Last Admin: 11/17/22 13:49 Dose: 25 mg Quetiapine Fumarate (Quetiapine Fumarate 100 Mg Tablet) 100 mg PO BEDTIME [facility] Tamsulosin HCl (Tamsulosin Hcl 0.4 Mg Capsule) 0.4 mg PO DAILY [facility] Last Admin: 11/21/22 10:02 Dose: 0.4 mg Trazodone HCl (Trazodone Hcl 100 Mg Tablet) 200 mg PO BEDTIME [facility] Last Admin: 11/21/22 20:39 Dose: 200 mg Trazodone HCl (Trazodone Hcl 50 Mg Tablet) 50 mg PO BEDTIME PRN PRN Reason: Insomnia Last Admin: 11/17/22 02:58 Dose: 50 mg Venlafaxine HCl (Venlafaxine Hcl Er 75 Mg Cap.Er.24h) 75 mg PO DAILY [facility] Vitamin D (Cholecalciferol (Vitamin D3) 10 Mcg Tablet) 10 mcg PO DAILY [facility] Last Admin: 11/21/22 10:02 Dose: 10 mcg Allergies Allergies Allergy/AdvReac Type Severity Reaction Status Date / Time fentanyl [FENTANYL] Allergy Intermediate unknown Verified 04/08/22 07:00 Assessment & Plan Assessment & Plan (1) Cognitive and neurobehavioral dysfunction following brain injury: Status: Acute Code(s): G31.89 - Other specified degenerative diseases of nervous system; F09 - Unspecified mental disorder due to known physiological condition; S06.9X9S - Unspecified intracranial injury with loss of consciousness of unspecified duration, sequela (2) Major depressive disorder, recurrent severe without psychotic features: Status: Acute Code(s): F33.2 - Major depressive disorder, recurrent severe without psychotic features (3) Swallowing dysfunction: Status: Acute Code(s): R13.10 - Dysphagia, unspecified Plan The patient is a 67-year-old male, , 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 At this moment also, he has problems of housing since he will not be able to go back to his regular fpc.? The patient has a long history of alcohol use disorder that he was not able to process or work on it.? Plan 1. Continue with the same treatment.? 2. We will work with the socially responsible investment adviser and DDS for a proper discharge planning.? 3. Continue with recommendations of Wound Care. 4. Increase Seroquel up to 150 mg po qhs. 10/30/22 restart lorazepam 1 hs prn insomnia norterip inc 100 hs level in 50 s monitor ekg 11/01 continue current tx plan 11/02/22- Bedside Swallow eval. s/p choking episode on 11/01. 2021 Increase Lexapro encourage CBT skills need supportive coaching patient increasingly hopeless helpless denies active self-harm check nortriptyline level 11/05/2022 Check nortriptyline level patient on Seroquel nortriptyline Lexapro.? Needs much reassurance and support the has difficulty interacting at times secondary to a hopelessness irritability passive SI.? Patient has having difficulty maintaining his posture in his chair unclear why this is happening for discuss safety issues with nursing will need OT and potentially Pt input? 11/06/2022 Patient depressed and anxious tried to review cognitive behavioral perspectives ways to emotionally manage current situational factors.? Patient has for an extended period of time had great deal of difficulty with any emotional a mental coping strategies.? Will and lorazepam p.r.n. 0.5 mg to help with anxiety trying get clarity from DTS regarding transition to fpc setting positive reinforcement for patient's efforts at physical conditioning becomes demoralized easily denies active self-harm 11/07 continue tx. 11/08 no changes, pt had unwitnessed fall and hit head, head CT negative 11/09 no changes 11/10 no changes 11/11 no changes 11/12/22 acute med w/u neg incentive spirometer cont medication cbt skills cont pt/ot 11/12 medical workout came back negative. No changes in current treatment 11/14/2022 Patient depressed withdrawn more fatigued 11/18/21 taper lexapro start effexor lower seroquel sec to fatigue 11/19/21 Seroquel lowered inc venlafax 11/21/21 Pt with swallowing problem motor dysfx lower gabapentin lower nortriptyline lower seroquel Reason for contiued inpatient stay Substantial Risk for: inability to function, rapid decompensation and med/psych decompensation Time Spent With Patient Time: Total time managing care of this patient today ____ minutes.
[2022-11-21] MEDS: Nystatin Powder 15 GM BOTTLE 1 APPL TOPICAL (22:57)
[2022-11-22 06:00] VITALS: BP 148/86; PULSE 62; RESP 18; TEMP 36.1; O2SAT 98
[2022-11-22] MEDS: calcium polycarbophiL TABLET 1 TAB PO (08:48)
[2022-11-22] MEDS: Gabapentin 600 MG TABLET 300 MG PO ×3 (08:49→20:56)
[2022-11-22] MEDS: Cholecalciferol (Vitamin D3) 10 MCG TABLET PO (08:50)
[2022-11-22] MEDS: Finasteride 5 MG TABLET PO (08:50)
[2022-11-22] MEDS: Omeprazole 20 MG CAPSULE.DR PO ×2 (08:50→18:16)
[2022-11-22] MEDS: Venlafaxine HCl ER 75 MG CAP.ER.24H PO (08:50)
[2022-11-22] MEDS: Tamsulosin HCL 0.4 MG CAPSULE PO (08:50)
[2022-11-22] MEDS: Escitalopram Oxalate 5 MG TABLET PO (08:50)
[2022-11-22] MEDS: lisinopriL 20 MG TABLET PO (08:50)
[2022-11-22] MEDS: amLODIPine Besylate 5 MG TABLET PO (08:50)
[2022-11-22] MEDS: Pramipexole Di-HCL 0.25 MG TABLET PO ×3 (08:51→20:56)
[2022-11-22] MEDS: Multivitamin TABLET 1 TAB PO (08:51)
[2022-11-22] MEDS: Nystatin Powder 15 GM BOTTLE 1 APPL TOPICAL ×2 (08:51→21:24)
[2022-11-22] MEDS: Naltrexone HCl 50 MG TABLET PO (08:51)
[2022-11-22] MEDS: lamoTRIgine 100 MG TABLET 200 MG PO ×2 (08:52→20:55)
[2022-11-22] MEDS: Lidocaine 5 % Ointment 35 GM 1 APPL TOPICAL ×3 (08:54→21:23)
--- NOTE | 2022-11-22 09:21 | P.PNPSI_ITS ---
Subjective Subjective Date of Service: 11/22/22 Reason For Visit: Depression aggression Subjective Notes: Conditional Voluntary Interim History: Pt reports feeling sad, more so now that he can only eat pureed food. He feels defeated, hopeless with feeling of worthlessness. He reports intermittent suicidal ideation but no plan or intent to harm himself. He reports sleeping well. No physical concerns at times reports feeling bothered by peers who are loud or intrusive. No behavioral concerns. Medication Compliance: Yes Side effects from medications: No Attending Groups: No Review of Systems Review of Systems General: +fatigue. No fevers, malaise, unintentional weight loss HEENT: No blurred vision, diplopia Cardiovascular: No chest pain, palpitations, or leg edema Respiratory: No shortness of breath, wheezing, cough GI: No abdominal pain, nausea, vomiting, diarrhea : No dysuria, hematuria, increased urinary frequency, decreased urinary output MSK: No myalgia, back pain Neuro: +headache. No weakness, paresthesias Skin: No rashes or lesions Yes Unobtainable due to mental condition Mental Status Exam Mental Status Exam Patient Appearance: Appropriate Patient Orientation: Person, Place and Situation Level of Consciousness: Awake and Appropriate Patient Behavior: Passive and Fatigued Mood Description: Withdrawn, Depressed, Blunted and Apprehensive Affect Description: Constricted Patient Cognition Impaired: Yes Ability to Follow Directions: Good Speech Pattern: Clear Memory Description: Episodic Impaired and Working Impaired Diagnostics Vital Signs (24Hr): Vital Signs - 24 hr 11/23/22 06:00 11/23/22 18:00 Temperature 98.2 F 97.7 F Pulse Rate 88 66 Respiratory Rate 18 16 Blood Pressure 148/82 H 140/73 H Pulse Oximetry 98 98 BMI result Body Mass Index 31.7 Labs 11/13/22 07:43 11/12/22 09:32 Imaging Radiology Impressions: ITS Impressions Chest X-Ray 10/20/22 15:45 IMPRESSION: 1. Low lung volumes with bibasilar linear disc atelectasis versus scarring. 2. No airspace consolidation or effusion. Head CT 11/08/22 12:29 IMPRESSION: No acute intracranial hemorrhage or territorial infarction. Stable chronic postoperative changes with gliosis and encephalomalacia in the right frontal and right temporal lobes. Ex vacuo dilatation of the ventricles and diffuse parenchymal volume loss. Right-sided craniotomy changes. Chest X-Ray 11/12/22 10:32 IMPRESSION: Hypoexpanded lungs with bibasilar platelike atelectasis. Brain MRI 11/12/22 13:15 IMPRESSION: 1. No demonstrated acute intracranial abnormalities. 2. Chronic encephalomalacia of the right temporal, right frontal, and left occipital lobes. Small regions of chronic encephalomalacia in the parasagittal aspects of the bilateral parietal lobes. Moderate underlying microangiopathy and generalized cerebral volume loss. Chest X-Ray 11/14/22 15:52 IMPRESSION: Low lung volumes, bibasilar subsegmental atelectasis and slight elevation of the right hemidiaphragm similar to previous exam. Modified Barium Swallow 11/21/22 15:11 IMPRESSION: Laryngeal penetration on several occasions but no laryngeal aspiration. Mild retention of solid food in the valleculae which cleared with subsequent oral administration of water or thin barium. Correlate with speech therapy results. Medications Medications Current Medications Acetaminophen (Acetaminophen 325 Mg Tablet) 650 mg PO Q6H PRN PRN Reason: Headache/Pain Mild Scale (1-3) Last Admin: 11/21/22 21:07 Dose: 650 mg Al Hydroxide/Mg Hydroxide (Magnesium Hydrox/Alum Hydrox 30 Ml Oral.Susp) 30 ml PO Q6H PRN PRN Reason: Heartburn/Nausea Last Admin: 11/22/22 21:39 Dose: 30 ml Albuterol Sulfate (Albuterol Sulfate 90 Mcg 8 Gm Inhaler) 2 puff INHALE Q6H PRN PRN Reason: Wheezing Amlodipine Besylate (Amlodipine Besylate 5 Mg Tablet) 5 mg PO DAILY [facility]; Protocol Last Admin: 11/23/22 09:27 Dose: 5 mg Benzocaine (Throat Lozenge, Medicated Lozenge) 1 lozenge MUCOUS MEM Q2H PRN PRN Reason: Sore Throat Last Admin: 11/12/22 03:08 Dose: 1 lozenge Calcium Polycarbophil (Calcium Polycarbophil Tablet) 1 tab PO DAILY [facility] Last Admin: 11/23/22 09:27 Dose: 1 tab Docusate Sodium (Docusate Sodium 100 Mg Capsule) 100 mg PO DAILY PRN PRN Reason: constipation Last Admin: 11/14/22 21:03 Dose: 100 mg Escitalopram Oxalate (Escitalopram Oxalate 5 Mg Tablet) 5 mg PO DAILY [facility] Last Admin: 11/23/22 09:26 Dose: 5 mg Finasteride (Finasteride 5 Mg Tablet) 5 mg PO DAILY [facility] Last Admin: 11/23/22 09:25 Dose: 5 mg Gabapentin (Gabapentin 600 Mg Tablet) 300 mg PO TID [facility] Last Admin: 11/23/22 20:37 Dose: 300 mg Guaifenesin/Dextromethorphan (Guaifenesin Dm 200/20/10 Ml 10 Ml Syrup) 10 ml PO Q4H PRN PRN Reason: Cough Last Admin: 11/20/22 05:31 Dose: 10 ml Hydroxyzine HCl (Hydroxyzine Hcl 25 Mg Tablet) 25 mg PO Q6H PRN PRN Reason: Anxiety Last Admin: 11/13/22 00:26 Dose: 25 mg Lamotrigine (Lamotrigine 100 Mg Tablet) 200 mg PO BID [facility] Last Admin: 11/23/22 20:36 Dose: 200 mg Latanoprost (Latanoprost 0.005 % Ophth No 2.5 Ml Drops) 1 drop EYE-BOTH BEDTIME [facility] Last Admin: 11/23/22 21:15 Dose: 1 drop Lidocaine (Lidocaine 5 % Ointment 35 Gm) 1 appl TOPICAL QID [facility] Last Admin: 11/23/22 22:07 Dose: Not Given Lisinopril (Lisinopril 20 Mg Tablet) 20 mg PO DAILY [facility]; Protocol Last Admin: 11/23/22 09:26 Dose: 20 mg Lorazepam (Lorazepam 1 Mg Tablet) 1 mg PO BEDTIME [facility] Last Admin: 11/23/22 20:39 Dose: 1 mg Magnesium Hydroxide (Milk Of Magnesia 30 Ml Oral.Susp) 30 ml PO DAILY PRN PRN Reason: Constipation Last Admin: 10/21/22 22:46 Dose: 30 ml Melatonin (Melatonin 3 Mg Tablet) 9 mg PO BEDTIME [facility] Last Admin: 11/23/22 20:39 Dose: 9 mg Multi-Ingred Cream/Lotion/Oil/Oint (Mineral Oil/Petrolatum,White 106 Gm Tube) 1 appl TOPICAL BID [facility]; Protocol Last Admin: 11/23/22 22:07 Dose: Not Given Multivitamins/Vitamin C (Multivitamin Tablet) 1 tab PO DAILY [facility] Last Admin: 11/23/22 09:27 Dose: 1 tab Naltrexone HCl (Naltrexone Hcl 50 Mg Tablet) 50 mg PO DAILY [facility] Last Admin: 11/23/22 09:25 Dose: 50 mg Nortriptyline HCl (Nortriptyline Hcl 25 Mg Capsule) 50 mg PO BEDTIME [facility] Last Admin: 11/23/22 20:36 Dose: 50 mg Nystatin (Nystatin Powder 15 Gm Bottle) 1 appl TOPICAL BID [facility] Last Admin: 11/23/22 22:07 Dose: Not Given Omeprazole (Omeprazole 20 Mg Capsule.Dr) 20 mg PO BID@0630,1630 [facility] Last Admin: 11/24/22 05:49 Dose: 20 mg Ondansetron HCl (Ondansetron Odt 4 Mg Tab.Rapdis) 4 mg TRANSLINGU Q6H PRN PRN Reason: Nausea and Vomiting Oxybutynin Chloride (Oxybutynin Chloride Er 5 Mg Tab.Er.24) 10 mg PO DAILY [facility] Last Admin: 11/23/22 09:26 Dose: 10 mg Polyethylene Glycol (Polyethylene Glycol 3350 17 Gm Powd.Pack) 17 gm PO CLAUDE LY@1600 [facility] Last Admin: 11/23/22 16:17 Dose: 17 gm Pramipexole Dihydrochloride (Pramipexole Di-Hcl 0.25 Mg Tablet) 0.25 mg PO TID [facility] Last Admin: 11/23/22 20:39 Dose: 0.25 mg Psyllium Hydrophilic Mucilloid (Psyllium Seed 3.4 Gm Powd.Pack) 3.4 gm PO DAILY [facility] Last Admin: 11/23/22 09:29 Dose: 3.4 gm Quetiapine Fumarate (Quetiapine Fumarate 25 Mg Tablet) 25 mg PO Q4H PRN PRN Reason: Anxiety Last Admin: 11/17/22 13:49 Dose: 25 mg Quetiapine Fumarate (Quetiapine Fumarate 100 Mg Tablet) 100 mg PO BEDTIME [facility] Last Admin: 11/23/22 20:39 Dose: 100 mg Tamsulosin HCl (Tamsulosin Hcl 0.4 Mg Capsule) 0.4 mg PO DAILY [facility] Last Admin: 11/23/22 09:27 Dose: 0.4 mg Trazodone HCl (Trazodone Hcl 100 Mg Tablet) 200 mg PO BEDTIME [facility] Last Admin: 11/23/22 20:36 Dose: 200 mg Trazodone HCl (Trazodone Hcl 50 Mg Tablet) 50 mg PO BEDTIME PRN PRN Reason: Insomnia Last Admin: 11/17/22 02:58 Dose: 50 mg Venlafaxine HCl (Venlafaxine Hcl Er 75 Mg Cap.Er.24h) 75 mg PO DAILY [facility] Last Admin: 11/23/22 09:27 Dose: 75 mg Vitamin D (Cholecalciferol (Vitamin D3) 10 Mcg Tablet) 10 mcg PO DAILY [facility] Last Admin: 11/23/22 09:27 Dose: 10 mcg Allergies Allergies Allergy/AdvReac Type Severity Reaction Status Date / Time fentanyl [FENTANYL] Allergy Intermediate unknown Verified 04/08/22 07:00 Assessment & Plan Assessment & Plan (1) Cognitive and neurobehavioral dysfunction following brain injury: Status: Acute Code(s): G31.89 - Other specified degenerative diseases of nervous system; F09 - Unspecified mental disorder due to known physiological condition; S06.9X9S - Unspecified intracranial injury with loss of consciousness of unspecified duration, sequela (2) Major depressive disorder, recurrent severe without psychotic features: Status: Acute Code(s): F33.2 - Major depressive disorder, recurrent severe without psychotic features (3) Swallowing dysfunction: Status: Acute Code(s): R13.10 - Dysphagia, unspecified Plan The patient is a 67-year-old male, , 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 At this moment also, he has problems of housing since he will not be able to go back to his regular half-way.? The patient has a long history of alcohol use disorder that he was not able to process or work on it.? Plan 1. Continue with the same treatment.? 2. We will work with the social service agency director and DDS for a proper discharge planning.? 3. Continue with recommendations of Wound Care. 4. Increase Seroquel up to 150 mg po qhs. 10/30/22 restart lorazepam 1 hs prn insomnia norterip inc 100 hs level in 50 s monitor ekg 11/01 continue current tx plan 11/02/22- Bedside Swallow eval. s/p choking episode on 11/01. 2021 Increase Lexapro encourage CBT skills need supportive coaching patient increasingly hopeless helpless denies active self-harm check nortriptyline level 11/05/2022 Check nortriptyline level patient on Seroquel nortriptyline Lexapro.? Needs much reassurance and support the has difficulty interacting at times secondary to a hopelessness irritability passive SI.? Patient has having difficulty maintaining his posture in his chair unclear why this is happening for discuss safety issues with nursing will need OT and potentially Pt input? 11/06/2022 Patient depressed and anxious tried to review cognitive behavioral perspectives ways to emotionally manage current situational factors.? Patient has for an extended period of time had great deal of difficulty with any emotional a mental coping strategies.? Will and lorazepam p.r.n. 0.5 mg to help with anxiety trying get clarity from DTS regarding transition to half-way setting positive reinforcement for patient's efforts at physical conditioning becomes demoralized easily denies active self-harm 11/07 continue tx. 11/08 no changes, pt had unwitnessed fall and hit head, head CT negative 11/09 no changes 11/10 no changes 11/11 no changes 11/12/22 acute med w/u neg incentive spirometer cont medication cbt skills cont pt/ot 11/12 medical workout came back negative. No changes in current treatment 11/14/2022 Patient depressed withdrawn more fatigued 11/18/21 taper lexapro start effexor lower seroquel sec to fatigue 11/19/21 Seroquel lowered inc venlafax 11/21/21 Pt with swallowing problem motor dysfx lower gabapentin lower nortriptyline lower seroquel 11/22 continue tx. Reason for contiued inpatient stay Substantial Risk for: harm to self and inability to function Time Spent With Patient Time: Total time managing care of this patient today ____ minutes.
[2022-11-22 18:00] VITALS: BP 160/66; PULSE 65; RESP 18; TEMP 36.3; O2SAT 96
[2022-11-22] MEDS: polyethylene glycoL 3350 17 GM POWD.PACK PO (18:16)
[2022-11-22] MEDS: Nortriptyline HCl 25 MG CAPSULE 50 MG PO (20:55)
[2022-11-22] MEDS: Melatonin 3 MG TABLET 9 MG PO (20:55)
[2022-11-22] MEDS: LORazepam 1 MG TABLET PO (20:56)
[2022-11-22] MEDS: traZODone HCL 100 MG TABLET 200 MG PO (20:56)
[2022-11-22] MEDS: QUEtiapine Fumarate 100 MG TABLET PO (20:56)
[2022-11-22] MEDS: Mineral Oil/Petrolatum,White 106 GM Tube 1 APPL TOPICAL (21:22)
[2022-11-22] MEDS: Latanoprost 0.005 % Ophth Sol 2.5 ML DROPS 1 DROP EYE-BOTH (21:22)
[2022-11-22] MEDS: Magnesium Hydrox/Alum Hydrox 30 ML ORAL.SUSP PO (21:39)
[2022-11-23 06:00] VITALS: BP 148/82; PULSE 88; RESP 18; TEMP 36.8; O2SAT 98
--- NOTE | 2022-11-23 08:21 | P.PNPSI_ITS ---
Subjective Subjective Date of Service: 11/23/22 Reason For Visit: Depression aggression Subjective Notes: Conditional Voluntary Interim History: Pt continues to report feeling depressed. Themes of him feeling defeated, hopeless with feeling of worthlessness are ongoing. He reports intermittent suicidal ideation but no plan or intent to harm himself. He reports sleeping well. No physical concerns at times reports feeling bothered by peers who are loud or intrusive. No behavioral concerns. Review of Systems Review of Systems General: +fatigue. No fevers, malaise, unintentional weight loss HEENT: No blurred vision, diplopia Cardiovascular: No chest pain, palpitations, or leg edema Respiratory: No shortness of breath, wheezing, cough GI: No abdominal pain, nausea, vomiting, diarrhea : No dysuria, hematuria, increased urinary frequency, decreased urinary output MSK: No myalgia, back pain Neuro: +headache. No weakness, paresthesias Skin: No rashes or lesions Yes Unobtainable due to mental condition Mental Status Exam Mental Status Exam Patient Appearance: Appropriate Patient Orientation: Person, Place and Situation Level of Consciousness: Awake and Appropriate Patient Behavior: Passive and Fatigued Mood Description: Withdrawn, Depressed, Blunted and Apprehensive Affect Description: Constricted Patient Cognition Impaired: Yes Ability to Follow Directions: Good Speech Pattern: Clear Memory Description: Episodic Impaired and Working Impaired Diagnostics Vital Signs (24Hr): Vital Signs - 24 hr 11/23/22 06:00 11/23/22 18:00 Temperature 98.2 F 97.7 F Pulse Rate 88 66 Respiratory Rate 18 16 Blood Pressure 148/82 H 140/73 H Pulse Oximetry 98 98 BMI result Body Mass Index 31.7 Labs 11/13/22 07:43 11/12/22 09:32 Imaging Radiology Impressions: ITS Impressions Chest X-Ray 10/20/22 15:45 IMPRESSION: 1. Low lung volumes with bibasilar linear disc atelectasis versus scarring. 2. No airspace consolidation or effusion. Head CT 11/08/22 12:29 IMPRESSION: No acute intracranial hemorrhage or territorial infarction. Stable chronic postoperative changes with gliosis and encephalomalacia in the right frontal and right temporal lobes. Ex vacuo dilatation of the ventricles and diffuse parenchymal volume loss. Right-sided craniotomy changes. Chest X-Ray 11/12/22 10:32 IMPRESSION: Hypoexpanded lungs with bibasilar platelike atelectasis. Brain MRI 11/12/22 13:15 IMPRESSION: 1. No demonstrated acute intracranial abnormalities. 2. Chronic encephalomalacia of the right temporal, right frontal, and left occipital lobes. Small regions of chronic encephalomalacia in the parasagittal aspects of the bilateral parietal lobes. Moderate underlying microangiopathy and generalized cerebral volume loss. Chest X-Ray 11/14/22 15:52 IMPRESSION: Low lung volumes, bibasilar subsegmental atelectasis and slight elevation of the right hemidiaphragm similar to previous exam. Modified Barium Swallow 11/21/22 15:11 IMPRESSION: Laryngeal penetration on several occasions but no laryngeal aspiration. Mild retention of solid food in the valleculae which cleared with subsequent oral administration of water or thin barium. Correlate with speech therapy results. Medications Medications Current Medications Acetaminophen (Acetaminophen 325 Mg Tablet) 650 mg PO Q6H PRN PRN Reason: Headache/Pain Mild Scale (1-3) Last Admin: 11/21/22 21:07 Dose: 650 mg Al Hydroxide/Mg Hydroxide (Magnesium Hydrox/Alum Hydrox 30 Ml Oral.Susp) 30 ml PO Q6H PRN PRN Reason: Heartburn/Nausea Last Admin: 11/22/22 21:39 Dose: 30 ml Albuterol Sulfate (Albuterol Sulfate 90 Mcg 8 Gm Inhaler) 2 puff INHALE Q6H PRN PRN Reason: Wheezing Amlodipine Besylate (Amlodipine Besylate 5 Mg Tablet) 5 mg PO DAILY COUNT INCLUDES [facility]; Protocol Last Admin: 11/23/22 09:27 Dose: 5 mg Benzocaine (Throat Lozenge, Medicated Lozenge) 1 lozenge MUCOUS MEM Q2H PRN PRN Reason: Sore Throat Last Admin: 11/12/22 03:08 Dose: 1 lozenge Calcium Polycarbophil (Calcium Polycarbophil Tablet) 1 tab PO DAILY [facility] Last Admin: 11/23/22 09:27 Dose: 1 tab Docusate Sodium (Docusate Sodium 100 Mg Capsule) 100 mg PO DAILY PRN PRN Reason: constipation Last Admin: 11/14/22 21:03 Dose: 100 mg Escitalopram Oxalate (Escitalopram Oxalate 5 Mg Tablet) 5 mg PO DAILY COUNT INCLUDES [facility] Last Admin: 11/23/22 09:26 Dose: 5 mg Finasteride (Finasteride 5 Mg Tablet) 5 mg PO DAILY COUNT INCLUDES [facility] Last Admin: 11/23/22 09:25 Dose: 5 mg Gabapentin (Gabapentin 600 Mg Tablet) 300 mg PO TID COUNT INCLUDES THE [facility] Last Admin: 11/23/22 20:37 Dose: 300 mg Guaifenesin/Dextromethorphan (Guaifenesin Dm 200/20/10 Ml 10 Ml Syrup) 10 ml PO Q4H PRN PRN Reason: Cough Last Admin: 11/20/22 05:31 Dose: 10 ml Hydroxyzine HCl (Hydroxyzine Hcl 25 Mg Tablet) 25 mg PO Q6H PRN PRN Reason: Anxiety Last Admin: 11/13/22 00:26 Dose: 25 mg Lamotrigine (Lamotrigine 100 Mg Tablet) 200 mg PO BID COUNT INCLUDES [facility] Last Admin: 11/23/22 20:36 Dose: 200 mg Latanoprost (Latanoprost 0.005 % Ophth No 2.5 Ml Drops) 1 drop EYE-BOTH BEDTIME COUNT INCLUDES THE [facility] Last Admin: 11/23/22 21:15 Dose: 1 drop Lidocaine (Lidocaine 5 % Ointment 35 Gm) 1 appl TOPICAL QID COUNT INCLUDES THE [facility] Last Admin: 11/23/22 22:07 Dose: Not Given Lisinopril (Lisinopril 20 Mg Tablet) 20 mg PO DAILY COUNT INCLUDES [facility]; Protocol Last Admin: 11/23/22 09:26 Dose: 20 mg Lorazepam (Lorazepam 1 Mg Tablet) 1 mg PO BEDTIME COUNT INCLUDES [facility] Last Admin: 11/23/22 20:39 Dose: 1 mg Magnesium Hydroxide (Milk Of Magnesia 30 Ml Oral.Susp) 30 ml PO DAILY PRN PRN Reason: Constipation Last Admin: 10/21/22 22:46 Dose: 30 ml Melatonin (Melatonin 3 Mg Tablet) 9 mg PO BEDTIME COUNT INCLUDES [facility] Last Admin: 11/23/22 20:39 Dose: 9 mg Multi-Ingred Cream/Lotion/Oil/Oint (Mineral Oil/Petrolatum,White 106 Gm Tube) 1 appl TOPICAL BID COUNT INCLUDES [facility]; Protocol Last Admin: 11/23/22 22:07 Dose: Not Given Multivitamins/Vitamin C (Multivitamin Tablet) 1 tab PO DAILY COUNT INCLUDES [facility] Last Admin: 11/23/22 09:27 Dose: 1 tab Naltrexone HCl (Naltrexone Hcl 50 Mg Tablet) 50 mg PO DAILY COUNT INCLUDES [facility] Last Admin: 11/23/22 09:25 Dose: 50 mg Nortriptyline HCl (Nortriptyline Hcl 25 Mg Capsule) 50 mg PO BEDTIME COUNT INCLUDES [facility] Last Admin: 11/23/22 20:36 Dose: 50 mg Nystatin (Nystatin Powder 15 Gm Bottle) 1 appl TOPICAL BID COUNT INCLUDES [facility] Last Admin: 11/23/22 22:07 Dose: Not Given Omeprazole (Omeprazole 20 Mg Capsule.Dr) 20 mg PO BID@0630,1630 COUNT [facility]CLUDES [facility] Last Admin: 11/24/22 05:49 Dose: 20 mg Ondansetron HCl (Ondansetron Odt 4 Mg Tab.Rapdis) 4 mg TRANSLINGU Q6H PRN PRN Reason: Nausea and Vomiting Oxybutynin Chloride (Oxybutynin Chloride Er 5 Mg Tab.Er.24) 10 mg PO DAILY COUNT INCLUDES THE [facility] Last Admin: 11/23/22 09:26 Dose: 10 mg Polyethylene Glycol (Polyethylene Glycol 3350 17 Gm Powd.Pack) 17 gm PO DAILY@1600 COUNT INCLUDES [facility] Last Admin: 11/23/22 16:17 Dose: 17 gm Pramipexole Dihydrochloride (Pramipexole Di-Hcl 0.25 Mg Tablet) 0.25 mg PO TID COUNT INCLUDES [facility] Last Admin: 11/23/22 20:39 Dose: 0.25 mg Psyllium Hydrophilic Mucilloid (Psyllium Seed 3.4 Gm Powd.Pack) 3.4 gm PO DAILY COUNT INCLUDES [facility] Last Admin: 11/23/22 09:29 Dose: 3.4 gm Quetiapine Fumarate (Quetiapine Fumarate 25 Mg Tablet) 25 mg PO Q4H PRN PRN Reason: Anxiety Last Admin: 11/17/22 13:49 Dose: 25 mg Quetiapine Fumarate (Quetiapine Fumarate 100 Mg Tablet) 100 mg PO BEDTIME COUNT INCLUDES [facility] Last Admin: 11/23/22 20:39 Dose: 100 mg Tamsulosin HCl (Tamsulosin Hcl 0.4 Mg Capsule) 0.4 mg PO DAILY COUNT INCLUDES [facility] Last Admin: 11/23/22 09:27 Dose: 0.4 mg Trazodone HCl (Trazodone Hcl 100 Mg Tablet) 200 mg PO BEDTIME COUNT INCLUDES [facility] Last Admin: 11/23/22 20:36 Dose: 200 mg Trazodone HCl (Trazodone Hcl 50 Mg Tablet) 50 mg PO BEDTIME PRN PRN Reason: Insomnia Last Admin: 11/17/22 02:58 Dose: 50 mg Venlafaxine HCl (Venlafaxine Hcl Er 75 Mg Cap.Er.24h) 75 mg PO DAILY COUNT INCLUDES [facility] Last Admin: 11/23/22 09:27 Dose: 75 mg Vitamin D (Cholecalciferol (Vitamin D3) 10 Mcg Tablet) 10 mcg PO DAILY COUNT INCLUDES [facility] Last Admin: 11/23/22 09:27 Dose: 10 mcg Allergies Allergies Allergy/AdvReac Type Severity Reaction Status Date / Time fentanyl [FENTANYL] Allergy Intermediate unknown Verified 04/08/22 07:00 Assessment & Plan Assessment & Plan (1) Cognitive and neurobehavioral dysfunction following brain injury: Status: Acute Code(s): G31.89 - Other specified degenerative diseases of nervous system; F09 - Unspecified mental disorder due to known physiological condition; S06.9X9S - Unspecified intracranial injury with loss of consciousness of unspecified duration, sequela (2) Major depressive disorder, recurrent severe without psychotic features: Status: Acute Code(s): F33.2 - Major depressive disorder, recurrent severe without psychotic features (3) Swallowing dysfunction: Status: Acute Code(s): R13.10 - Dysphagia, unspecified Plan The patient is a 67-year-old male, , 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 At this moment also, he has problems of housing since he will not be able to go back to his regular care home.? The patient has a long history of alcohol use disorder that he was not able to process or work on it.? Plan 1. Continue with the same treatment.? 2. We will work with the social service liaison and DDS for a proper discharge planning.? 3. Continue with recommendations of Wound Care. 4. Increase Seroquel up to 150 mg po qhs. 10/30/22 restart lorazepam 1 hs prn insomnia norterip inc 100 hs level in 50 s monitor ekg 11/01 continue current tx plan 11/02/22- Bedside Swallow eval. s/p choking episode on 11/01. 2021 Increase Lexapro encourage CBT skills need supportive coaching patient increasingly hopeless helpless denies active self-harm check nortriptyline level 11/05/2022 Check nortriptyline level patient on Seroquel nortriptyline Lexapro.? Needs much reassurance and support the has difficulty interacting at times secondary to a hopelessness irritability passive SI.? Patient has having difficulty maintaining his posture in his chair unclear why this is happening for discuss safety issues with nursing will need OT and potentially Pt input? 11/06/2022 Patient depressed and anxious tried to review cognitive behavioral perspectives ways to emotionally manage current situational factors.? Patient has for an extended period of time had great deal of difficulty with any emotional a mental coping strategies.? Will and lorazepam p.r.n. 0.5 mg to help with anxiety trying get clarity from DTS regarding transition to care home setting positive reinforcement for patient's efforts at physical conditioning becomes demoralized easily denies active self-harm 11/07 continue tx. 11/08 no changes, pt had unwitnessed fall and hit head, head CT negative 11/09 no changes 11/10 no changes 11/11 no changes 11/12/22 acute med w/u neg incentive spirometer cont medication cbt skills cont pt/ot 11/12 medical workout came back negative. No changes in current treatment 11/14/2022 Patient depressed withdrawn more fatigued 11/18/21 taper lexapro start effexor lower seroquel sec to fatigue 11/19/21 Seroquel lowered inc venlafax 11/21/21 Pt with swallowing problem motor dysfx lower gabapentin lower nortriptyline lower seroquel 11/22 continue tx. 11/23 continue tx. Reason for contiued inpatient stay Substantial Risk for: harm to self and inability to function Time Spent With Patient Time: Total time managing care of this patient today ____ minutes.
[2022-11-23] MEDS: Finasteride 5 MG TABLET PO (09:25)
[2022-11-23] MEDS: Naltrexone HCl 50 MG TABLET PO (09:25)
[2022-11-23] MEDS: Escitalopram Oxalate 5 MG TABLET PO (09:26)
[2022-11-23] MEDS: lisinopriL 20 MG TABLET PO (09:26)
[2022-11-23] MEDS: lamoTRIgine 100 MG TABLET 200 MG PO ×2 (09:26→20:36)
[2022-11-23] MEDS: Gabapentin 600 MG TABLET 300 MG PO ×3 (09:26→20:37)
[2022-11-23] MEDS: calcium polycarbophiL TABLET 1 TAB PO (09:27)
[2022-11-23] MEDS: Omeprazole 20 MG CAPSULE.DR PO ×2 (09:27→16:15)
[2022-11-23] MEDS: Cholecalciferol (Vitamin D3) 10 MCG TABLET PO (09:27)
[2022-11-23] MEDS: Multivitamin TABLET 1 TAB PO (09:27)
[2022-11-23] MEDS: Nystatin Powder 15 GM BOTTLE 1 APPL TOPICAL (09:27)
[2022-11-23] MEDS: Tamsulosin HCL 0.4 MG CAPSULE PO (09:27)
[2022-11-23] MEDS: amLODIPine Besylate 5 MG TABLET PO (09:27)
[2022-11-23] MEDS: Pramipexole Di-HCL 0.25 MG TABLET PO ×3 (09:27→20:39)
[2022-11-23] MEDS: Venlafaxine HCl ER 75 MG CAP.ER.24H PO (09:27)
[2022-11-23] MEDS: polyethylene glycoL 3350 17 GM POWD.PACK PO (16:17)
[2022-11-23 18:00] VITALS: BP 140/73; PULSE 66; RESP 16; TEMP 36.5; O2SAT 98
[2022-11-23] MEDS: Nortriptyline HCl 25 MG CAPSULE 50 MG PO (20:36)
[2022-11-23] MEDS: traZODone HCL 100 MG TABLET 200 MG PO (20:36)
[2022-11-23] MEDS: Melatonin 3 MG TABLET 9 MG PO (20:39)
[2022-11-23] MEDS: LORazepam 1 MG TABLET PO (20:39)
[2022-11-23] MEDS: QUEtiapine Fumarate 100 MG TABLET PO (20:39)
[2022-11-23] MEDS: Latanoprost 0.005 % Ophth Sol 2.5 ML DROPS 1 DROP EYE-BOTH (21:15)
[2022-11-24] MEDS: Omeprazole 20 MG CAPSULE.DR PO ×2 (05:49→16:53)
[2022-11-24 07:30] VITALS: BP 131/83; PULSE 71; RESP 17; TEMP 36.3; O2SAT 93
[2022-11-24] MEDS: Tamsulosin HCL 0.4 MG CAPSULE PO (11:06)
[2022-11-24] MEDS: Cholecalciferol (Vitamin D3) 10 MCG TABLET PO (11:06)
[2022-11-24] MEDS: Pramipexole Di-HCL 0.25 MG TABLET PO ×3 (11:06→20:42)
[2022-11-24] MEDS: Gabapentin 300 MG CAPSULE PO ×3 (11:07→20:26)
[2022-11-24] MEDS: calcium polycarbophiL TABLET 1 TAB PO (11:07)
[2022-11-24] MEDS: Naltrexone HCl 50 MG TABLET PO (11:07)
[2022-11-24] MEDS: lisinopriL 20 MG TABLET PO (11:07)
[2022-11-24] MEDS: lamoTRIgine 100 MG TABLET 200 MG PO (11:07)
[2022-11-24] MEDS: Escitalopram Oxalate 5 MG TABLET PO (11:08)
[2022-11-24] MEDS: QUEtiapine Fumarate 25 MG TABLET PO (11:08)
[2022-11-24] MEDS: Venlafaxine HCl ER 75 MG CAP.ER.24H PO (11:08)
[2022-11-24] MEDS: Finasteride 5 MG TABLET PO (11:08)
[2022-11-24] MEDS: Multivitamin TABLET 1 TAB PO (11:08)
[2022-11-24] MEDS: amLODIPine Besylate 5 MG TABLET PO (11:26)
--- NOTE | 2022-11-24 16:37 | P.PNPSI_ITS ---
Subjective Subjective Date of Service: 11/24/22 Reason For Visit: Depression hopelessness irritability Subjective Notes: Conditional Voluntary Guardianship: No Medical Problems Affecting Mental Status: Yes Medication Compliance: Yes Side effects from medications: Yes Attending Groups: Intermittent Review of Systems Acute medical concerns: Yes Swallowing concerns Mental Status Exam Mental Status Exam Patient Appearance: Appropriate Patient Orientation: Person, Place and Situation Level of Consciousness: Awake and Appropriate Patient Behavior: Cooperative and Anxious Mood Description: Withdrawn, Depressed, Blunted and Apprehensive Affect Description: Constricted Patient Cognition Impaired: Yes Ability to Follow Directions: Good Speech Pattern: Clear Memory Description: Episodic Impaired Hallucinations: None Delusions: Not Present Thought Process: Intact and Rumination Depressive Symptoms: Increased Anxiety, Increased Irritability and Thoughts of /Suicide Judgement and Insight: Improving judgment less reactivity Diagnostics Vital Signs (24Hr): Vital Signs - 24 hr 11/23/22 18:00 Temperature 97.7 F Pulse Rate 66 Respiratory Rate 16 Blood Pressure 140/73 H Pulse Oximetry 98 BMI result Body Mass Index 31.7 Labs 11/13/22 07:43 11/12/22 09:32 Imaging Radiology Impressions: ITS Impressions Chest X-Ray 10/20/22 15:45 IMPRESSION: 1. Low lung volumes with bibasilar linear disc atelectasis versus scarring. 2. No airspace consolidation or effusion. Head CT 11/08/22 12:29 IMPRESSION: No acute intracranial hemorrhage or territorial infarction. Stable chronic postoperative changes with gliosis and encephalomalacia in the right frontal and right temporal lobes. Ex vacuo dilatation of the ventricles and diffuse parenchymal volume loss. Right-sided craniotomy changes. Chest X-Ray 11/12/22 10:32 IMPRESSION: Hypoexpanded lungs with bibasilar platelike atelectasis. Brain MRI 11/12/22 13:15 IMPRESSION: 1. No demonstrated acute intracranial abnormalities. 2. Chronic encephalomalacia of the right temporal, right frontal, and left occipital lobes. Small regions of chronic encephalomalacia in the parasagittal aspects of the bilateral parietal lobes. Moderate underlying microangiopathy and generalized cerebral volume loss. Chest X-Ray 11/14/22 15:52 IMPRESSION: Low lung volumes, bibasilar subsegmental atelectasis and slight elevation of the right hemidiaphragm similar to previous exam. Modified Barium Swallow 11/21/22 15:11 IMPRESSION: Laryngeal penetration on several occasions but no laryngeal aspiration. Mild retention of solid food in the valleculae which cleared with subsequent oral administration of water or thin barium. Correlate with speech therapy results. Medications Medications Current Medications Acetaminophen (Acetaminophen 325 Mg Tablet) 650 mg PO Q6H PRN PRN Reason: Headache/Pain Mild Scale (1-3) Last Admin: 11/21/22 21:07 Dose: 650 mg Al Hydroxide/Mg Hydroxide (Magnesium Hydrox/Alum Hydrox 30 Ml Oral.Susp) 30 ml PO Q6H PRN PRN Reason: Heartburn/Nausea Last Admin: 11/22/22 21:39 Dose: 30 ml Albuterol Sulfate (Albuterol Sulfate 90 Mcg 8 Gm Inhaler) 2 puff INHALE Q6H PRN PRN Reason: Wheezing Amlodipine Besylate (Amlodipine Besylate 5 Mg Tablet) 5 mg PO DAILY [facility]; Protocol Last Admin: 11/24/22 11:26 Dose: 5 mg Benzocaine (Throat Lozenge, Medicated Lozenge) 1 lozenge MUCOUS MEM Q2H PRN PRN Reason: Sore Throat Last Admin: 11/12/22 03:08 Dose: 1 lozenge Calcium Polycarbophil (Calcium Polycarbophil Tablet) 1 tab PO DAILY [facility] Last Admin: 11/24/22 11:07 Dose: 1 tab Docusate Sodium (Docusate Sodium 100 Mg Capsule) 100 mg PO DAILY PRN PRN Reason: constipation Last Admin: 11/14/22 21:03 Dose: 100 mg Escitalopram Oxalate (Escitalopram Oxalate 5 Mg Tablet) 5 mg PO DAILY [facility] Last Admin: 11/24/22 11:08 Dose: 5 mg Finasteride (Finasteride 5 Mg Tablet) 5 mg PO DAILY [facility] Last Admin: 11/24/22 11:08 Dose: 5 mg Gabapentin (Gabapentin 300 Mg Capsule) 300 mg PO TID [facility] Last Admin: 11/24/22 11:07 Dose: 300 mg Guaifenesin/Dextromethorphan (Guaifenesin Dm 200/20/10 Ml 10 Ml Syrup) 10 ml PO Q4H PRN PRN Reason: Cough Last Admin: 11/20/22 05:31 Dose: 10 ml Hydroxyzine HCl (Hydroxyzine Hcl 25 Mg Tablet) 25 mg PO Q6H PRN PRN Reason: Anxiety Last Admin: 12/29/22 00:26 Dose: 25 mg Lamotrigine (Lamotrigine 100 Mg Tablet) 200 mg PO BID [facility] Last Admin: 11/24/22 11:07 Dose: 200 mg Latanoprost (Latanoprost 0.005 % Ophth No 2.5 Ml Drops) 1 drop EYE-BOTH BEDTI [facility] Last Admin: 11/23/22 21:15 Dose: 1 drop Lidocaine (Lidocaine 5 % Ointment 35 Gm) 1 appl TOPICAL QID [facility] Last Admin: 11/24/22 11:26 Dose: Not Given Lisinopril (Lisinopril 20 Mg Tablet) 20 mg PO DAILY [facility]; Protocol Last Admin: 11/24/22 11:07 Dose: 20 mg Lorazepam (Lorazepam 1 Mg Tablet) 1 mg PO BEDTIME [facility] Last Admin: 11/23/22 20:39 Dose: 1 mg Magnesium Hydroxide (Milk Of Magnesia 30 Ml Oral.Susp) 30 ml PO DAILY PRN PRN Reason: Constipation Last Admin: 10/21/22 22:46 Dose: 30 ml Melatonin (Melatonin 3 Mg Tablet) 9 mg PO BEDTIME [facility] Last Admin: 11/23/22 20:39 Dose: 9 mg Multi-Ingred Cream/Lotion/Oil/Oint (Mineral Oil/Petrolatum,White 106 Gm Tube) 1 appl TOPICAL BID [facility]; Protocol Last Admin: 11/24/22 11:26 Dose: Not Given Multivitamins/Vitamin C (Multivitamin Tablet) 1 tab PO DAILY [facility] Last Admin: 11/24/22 11:08 Dose: 1 tab Naltrexone HCl (Naltrexone Hcl 50 Mg Tablet) 50 mg PO DAILY [facility] Last Admin: 11/24/22 11:07 Dose: 50 mg Nortriptyline HCl (Nortriptyline Hcl 25 Mg Capsule) 50 mg PO BEDTIME [facility] Last Admin: 11/23/22 20:36 Dose: 50 mg Nystatin (Nystatin Powder 15 Gm Bottle) 1 appl TOPICAL BID [facility] Last Admin: 11/24/22 11:26 Dose: Not Given Omeprazole (Omeprazole 20 Mg Capsule.Dr) 20 mg PO BID@0630,1630 [facility] Last Admin: 11/24/22 05:49 Dose: 20 mg Ondansetron HCl (Ondansetron Odt 4 Mg Tab.Rapdis) 4 mg TRANSLINGU Q6H PRN PRN Reason: Nausea and Vomiting Oxybutynin Chloride (Oxybutynin Chloride Er 5 Mg Tab.Er.24) 10 mg PO DAILY [facility] Last Admin: 11/24/22 11:06 Dose: 10 mg Polyethylene Glycol (Polyethylene Glycol 3350 17 Gm Powd.Pack) 17 gm PO DAILY@1600 [facility] Last Admin: 11/23/22 16:17 Dose: 17 gm Pramipexole Dihydrochloride (Pramipexole Di-Hcl 0.25 Mg Tablet) 0.25 mg PO TID [facility] Last Admin: 11/24/22 11:06 Dose: 0.25 mg Psyllium Hydrophilic Mucilloid (Psyllium Seed 3.4 Gm Powd.Pack) 3.4 gm PO DAILY [facility] Last Admin: 11/24/22 11:08 Dose: 3.4 gm Quetiapine Fumarate (Quetiapine Fumarate 25 Mg Tablet) 25 mg PO Q4H PRN PRN Reason: Anxiety Last Admin: 11/24/22 11:08 Dose: 25 mg Quetiapine Fumarate (Quetiapine Fumarate 100 Mg Tablet) 100 mg PO BEDTIME [facility] Last Admin: 11/23/22 20:39 Dose: 100 mg Tamsulosin HCl (Tamsulosin Hcl 0.4 Mg Capsule) 0.4 mg PO DAILY [facility] Last Admin: 11/24/22 11:06 Dose: 0.4 mg Trazodone HCl (Trazodone Hcl 100 Mg Tablet) 200 mg PO BEDTIME [facility] Last Admin: 11/23/22 20:36 Dose: 200 mg Trazodone HCl (Trazodone Hcl 50 Mg Tablet) 50 mg PO BEDTIME PRN PRN Reason: Insomnia Last Admin: 11/17/22 02:58 Dose: 50 mg Venlafaxine HCl (Venlafaxine Hcl Er 75 Mg Cap.Er.24h) 75 mg PO DAILY [facility] Last Admin: 11/24/22 11:08 Dose: 75 mg Vitamin D (Cholecalciferol (Vitamin D3) 10 Mcg Tablet) 10 mcg PO DAILY [facility] Last Admin: 11/24/22 11:06 Dose: 10 mcg Allergies Allergies Allergy/AdvReac Type Severity Reaction Status Date / Time fentanyl [FENTANYL] Allergy Intermediate unknown Verified 04/08/22 07:00 Assessment & Plan Assessment & Plan (1) Cognitive and neurobehavioral dysfunction following brain injury: Status: Acute Code(s): G31.89 - Other specified degenerative diseases of nervous system; F09 - Unspecified mental disorder due to known physiological condition; S06.9X9S - Unspecified intracranial injury with loss of consciousness of unspecified duration, sequela (2) Major depressive disorder, recurrent severe without psychotic features: Status: Acute Code(s): F33.2 - Major depressive disorder, recurrent severe without psychotic features (3) Swallowing dysfunction: Status: Acute Code(s): R13.10 - Dysphagia, unspecified Assessment and Plan: See specific swallowing plan Plan The patient is a 67-year-old male, , 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 At this moment also, he has problems of housing since he will not be able to go back to his regular prison.? The patient has a long history of alcohol use disorder that he was not able to process or work on it.? Plan 1. Continue with the same treatment.? 2. We will work with the social worker psychiatric and DDS for a proper discharge planning.? 3. Continue with recommendations of Wound Care. 4. Increase Seroquel up to 150 mg po qhs. 10/30/22 restart lorazepam 1 hs prn insomnia norterip inc 100 hs level in 50 s monitor ekg 11/01 continue current tx plan 11/02/22- Bedside Swallow eval. s/p choking episode on 11/01. 2021 Increase Lexapro encourage CBT skills need supportive coaching patient increasingly hopeless helpless denies active self-harm check nortriptyline level 11/05/2022 Check nortriptyline level patient on Seroquel nortriptyline Lexapro.? Needs much reassurance and support the has difficulty interacting at times secondary to a hopelessness irritability passive SI.? Patient has having difficulty maintaining his posture in his chair unclear why this is happening for discuss safety issue s with nursing will need OT and potentially Pt input? 11/06/2022 Patient depressed and anxious tried to review cognitive behavioral perspectives ways to emotionally manage current situational factors.? Patient has for an extended period of time had great deal of difficulty with any emotional a mental coping strategies.? Will and lorazepam p.r.n. 0.5 mg to help with anxiety trying get clarity from DTS regarding transition to prison setting positive reinforcement for patient's efforts at physical conditioning becomes demoralized easily denies active self-harm 11/07 continue tx. 11/08 no changes, pt had unwitnessed fall and hit head, head CT negative 11/09 no changes 11/10 no changes 11/11 no changes 11/12/22 acute med w/u neg incentive spirometer cont medication cbt skills cont pt/ot 11/12 medical workout came back negative. No changes in current treatment 11/14/2022 Patient depressed withdrawn more fatigued 11/18/21 taper lexapro start effexor lower seroquel sec to fatigue 11/19/21 Seroquel lowered inc venlafax 11/21/21 Pt with swallowing problem motor dysfx lower gabapentin lower nortriptyline lower seroquel 11/22 continue tx. 11/23 continue tx. 11/24/2022 More alert with lowered gabapentin nortriptyline lorazepam lower Lamictal to 150 b.i.d. hope to improve patient's balance motor function and consideration swallowing dysfunction can try and taper down on Seroquel in case this is also a contributing factor Reason for contiued inpatient stay Substantial Risk for: harm to self, rapid decompensation and med/psych decompensation Time Spent With Patient Time: Total time managing care of this patient today ____ minutes.
[2022-11-24] MEDS: polyethylene glycoL 3350 17 GM POWD.PACK PO (16:53)
--- NOTE | 2022-11-24 17:10 | MHC.SL.SWA ---
Addendum entered and electronically signed by Maddy Harris MA, CCC-COMPLIANCE CLERK 11/25/22 09:27: D.S. Original Note: Speech Pathologist Impression: Risk of Aspiration Due to: Neurological Condition Reduced Cognition Dysphasia Diet Status: No change, see 11/21/22 MBSS for full report Liquid Consistency and Strategies for Safe Swallow: Liquid Intake Recommendation: Thin Liquid Intake Strategies: No Straws Double Swallow Solid Food Consistency: Dietary Recommendations: Grnd/Mech Altered (NDD2) Oral Medication Intake: Crushed with Puree Please contact the pharmacy regarding appropriate crushable or liquid drug formulations that are available whenever modified delivery is recommended. Compensatory Strategies and Precautions to be Taken for Safe Swallow: Sitting Upright (90 deg) Double Swallow No Straw Small Bites and Sips Alternate Liquids/Solids Rate of Ingestion Change Avoid Specific Foods Supervision While Eating and Drinking for Safe Swallow: Total Supervision (1:1) Foods to Avoid: Avoid hard to chew solids, sticky textures, mixed consistencies, and foods that break up into small pieces (rice, popcorn, nuts) Swallowing Recommended Treatments: Compens. Strategy Educat. Recommendation for Speech: Inpatient Speech Therapy Per 11/21/22 MBSS Report: PLAN: Intake Recommendations: Route: PO Diet Grade: Mechanical Soft Liquid Consistencies: Thin Post-Study Functional Oral Intake Scale (FOIS): 5- Total oral intake of multiple consistencies requiring special preparation MBSS 11/21/22 revealed moderate oropharyngeal phase dysphagia, characterized by slowed and prolonged oral phase, increase in oral and pharyngeal residue with harder solids, and incomplete laryngeal vestibular closure with resultant penetration of thin liquid. Pt was able to reduce pharyngeal retention with multiple dry swallows followed by sips of liquid. No evidence of aspiration during this exam, however, presence of penetration puts pt at risk of aspiration. Recommend modified diet GROUND/MECHANICALLY ALTERED (NDD2) solids with THIN liquids and ASPIRATION PRECAUTIONS: -Continue total 1:1 supervision during PO intake, provide pt w/ cues as needed -Take small bites of food -Moisten food with sauces and gravies, ensuring sauces are mixed and blended in well with food -Chew food well -Avoid hard to chew solids, sticky textures, mixed consistencies, and foods that break up into small pieces (rice, popcorn, nuts) -Follow each bite with 2-3 additional dry swallow to promote pharyngeal clearance -After dry swallows, take sips of liquid to promote pharyngeal clearance -Take small, individual sips of liquid -Avoid taking consecutive sips -Avoid the use of straws -Follow sips with a throat clear then dry swallow -Maintain upright 90 degree position while eating and drinking and for at least 45 minutes afterwards -Ensure a rigorous daily oral care routine before first meal and after each subsequent meal -Crush pills in puree when possible (consult with pharmacy). If pill cannot be crushed, take additional sips of liquid after taking the pill to promote pharyngeal clearance. Take pills one at a time. Recommend continue ST intervention at bedside to provide further education RE: MBSS results, risks of aspiration, dietary textures, and recommended strategies. Recommend pt to continue monitoring his dysphagia. If there are any changes or worsening of symptoms, consult with hospitalist or PCP, at which point a re-evaluation may be indicated. Therapy Recommendations: Therapy will be continued Prognosis for Improvement: The prognosis for the patient to meet nutritional needs by mouth is fair-good based on degree of impairment. Longterm Goals: ? The patient will tolerate the least restrictive diet with a safe/efficient swallow to maintain adequate nutrition and hydration. ? The patient and/or family will participate in further education for swallowing goals. Short Term Goals: ? Diet - The patient will tolerate a mechanical soft diet with thin liquids without signs or symptoms of penetration/aspiration 100% of the time. - The patient will participate in therapeutic PO trials with the COMPLIANCE CLERK. ? Guidelines - The patient will comply with/recall the following guidelines/strategies 100% of the time with minimal cuing: Bolus Volume Change, Rate of Ingestion Change, Liquid Wash, Additional Swallow(s) per Bolus, Throat Clear, No Straws. ? Education - The patient, nurse will verbalize/demonstrate understanding of the results of this evaluation, the above recommendations, and the swallowing guidelines. District Plant Superintendent Clinican/Clinical Fellow: Yes: Bridget Martinez M.A., CF-COMPLIANCE CLERK Supervisory Statement: I have reviewed and agree with the student/clinical fellow's documentation: Yes Speech Language Pathologist: Maddy Harris M.A., [facility]-COMPLIANCE CLERK
[2022-11-24 18:00] VITALS: BP 133/66; PULSE 70; RESP 18; TEMP 36.5; O2SAT 97
[2022-11-24] MEDS: LORazepam 1 MG TABLET PO (20:25)
[2022-11-24] MEDS: Nortriptyline HCl 25 MG CAPSULE 50 MG PO (20:26)
[2022-11-24] MEDS: lamoTRIgine 25 MG TABLET 150 MG PO (20:26)
[2022-11-24] MEDS: traZODone HCL 100 MG TABLET 200 MG PO (20:27)
[2022-11-24] MEDS: QUEtiapine Fumarate 100 MG TABLET PO (20:27)
[2022-11-24] MEDS: Melatonin 3 MG TABLET 9 MG PO (20:27)
[2022-11-24] MEDS: Latanoprost 0.005 % Ophth Sol 2.5 ML DROPS 1 DROP EYE-BOTH (20:37)
[2022-11-24] MEDS: traZODone HCL 50 MG TABLET PO (21:24)
[2022-11-24] MEDS: Lidocaine 5 % Ointment 35 GM 1 APPL TOPICAL (22:31)
[2022-11-25] MEDS: Omeprazole 20 MG CAPSULE.DR PO ×2 (06:08→16:19)
[2022-11-25 08:00] VITALS: BP 123/74; PULSE 86; RESP 16; TEMP 36.6; O2SAT 96
[2022-11-25] MEDS: Cholecalciferol (Vitamin D3) 10 MCG TABLET PO (08:25)
[2022-11-25] MEDS: Pramipexole Di-HCL 0.25 MG TABLET PO ×3 (08:26→20:31)
[2022-11-25] MEDS: lamoTRIgine 25 MG TABLET 150 MG PO ×2 (08:29→20:30)
[2022-11-25] MEDS: calcium polycarbophiL TABLET 1 TAB PO (08:31)
[2022-11-25] MEDS: lisinopriL 20 MG TABLET PO (08:31)
[2022-11-25] MEDS: Venlafaxine HCl ER 75 MG CAP.ER.24H PO (08:32)
[2022-11-25] MEDS: Tamsulosin HCL 0.4 MG CAPSULE PO (08:32)
[2022-11-25] MEDS: Naltrexone HCl 50 MG TABLET PO (08:32)
[2022-11-25] MEDS: Multivitamin TABLET 1 TAB PO (08:32)
[2022-11-25] MEDS: Gabapentin 300 MG CAPSULE PO ×3 (08:33→20:25)
[2022-11-25] MEDS: amLODIPine Besylate 5 MG TABLET PO (08:33)
[2022-11-25] MEDS: Finasteride 5 MG TABLET PO (08:33)
[2022-11-25] MEDS: Mineral Oil/Petrolatum,White 106 GM Tube 1 APPL TOPICAL ×2 (13:57→20:42)
[2022-11-25] MEDS: Lidocaine 5 % Ointment 35 GM 1 APPL TOPICAL ×3 (13:57→20:42)
[2022-11-25] MEDS: polyethylene glycoL 3350 17 GM POWD.PACK PO (16:18)
--- NOTE | 2022-11-25 17:32 | P.PNPSI_ITS ---
Subjective Subjective Date of Service: 11/25/22 Reason For Visit: Depression hopelessness irritability Subjective Notes: Conditional Voluntary Interim History: Patient states he is feeling somewhat stronger less lethargic more alert seems to be processing information better having difficulty with a loud intrusive resident working on swallowing issues Medication Compliance: Yes Review of Systems Review of Systems: Speech clear no choking episodes Mental Status Exam Mental Status Exam Patient Appearance: Appropriate Patient Orientation: Person, Place and Situation Level of Consciousness: Awake and Appropriate Patient Behavior: Cooperative and Anxious Mood Description: Depressed, Blunted and Apprehensive Affect Description: Constricted Patient Cognition Impaired: Yes Ability to Follow Directions: Good Speech Pattern: Clear Memory Description: Episodic Impaired and Working Impaired Hallucinations: None Delusions: Not Present Thought Process: Intact and Rumination Depressive Symptoms: Increased Anxiety, Increased Irritability and Thoughts of /Suicide Judgement and Insight: Improving judgment less reactivity cooperative with exercise regimen Diagnostics Vital Signs (24Hr): Vital Signs - 24 hr 11/24/22 18:00 11/25/22 08:00 Temperature 97.7 F 97.9 F Pulse Rate 70 86 Respiratory Rate 18 16 Blood Pressure 133/66 123/74 Pulse Oximetry 97 96 Oxygen Delivery Method Room Air Room Air BMI result Body Mass Index 31.7 Labs 11/13/22 07:43 11/12/22 09:32 Imaging Radiology Impressions: ITS Impressions Chest X-Ray 10/20/22 15:45 IMPRESSION: 1. Low lung volumes with bibasilar linear disc atelectasis versus scarring. 2. No airspace consolidation or effusion. Head CT 11/08/22 12:29 IMPRESSION: No acute intracranial hemorrhage or territorial infarction. Stable chronic postoperative changes with gliosis and encephalomalacia in the right frontal and right temporal lobes. Ex vacuo dilatation of the ventricles and diffuse parenchymal volume loss. Right-sided craniotomy changes. Chest X-Ray 11/12/22 10:32 IMPRESSION: Hypoexpanded lungs with bibasilar platelike atelectasis. Brain MRI 11/12/22 13:15 IMPRESSION: 1. No demonstrated acute intracranial abnormalities. 2. Chronic encephalomalacia of the right temporal, right frontal, and left occipital lobes. Small regions of chronic encephalomalacia in the parasagittal aspects of the bilateral parietal lobes. Moderate underlying microangiopathy and generalized cerebral volume loss. Chest X-Ray 11/14/22 15:52 IMPRESSION: Low lung volumes, bibasilar subsegmental atelectasis and slight elevation of the right hemidiaphragm similar to previous exam. Modified Barium Swallow 11/21/22 15:11 IMPRESSION: Laryngeal penetration on several occasions but no laryngeal aspiration. Mild retention of solid food in the valleculae which cleared with subsequent oral administration of water or thin barium. Correlate with speech therapy results. Medications Medications Current Medications Acetaminophen (Acetaminophen 325 Mg Tablet) 650 mg PO Q6H PRN PRN Reason: Headache/Pain Mild Scale (1-3) Last Admin: 11/21/22 21:07 Dose: 650 mg Al Hydroxide/Mg Hydroxide (Magnesium Hydrox/Alum Hydrox 30 Ml Oral.Susp) 30 ml PO Q6H PRN PRN Reason: Heartburn/Nausea Last Admin: 11/22/22 21:39 Dose: 30 ml Albuterol Sulfate (Albuterol Sulfate 90 Mcg 8 Gm Inhaler) 2 puff INHALE Q6H PRN PRN Reason: Wheezing Amlodipine Besylate (Amlodipine Besylate 5 Mg Tablet) 5 mg PO DAILY [facility]; Protocol Last Admin: 11/25/22 08:33 Dose: 5 mg Benzocaine (Throat Lozenge, Medicated Lozenge) 1 lozenge MUCOUS MEM Q2H PRN PRN Reason: Sore Throat Last Admin: 11/12/22 03:08 Dose: 1 lozenge Calcium Polycarbophil (Calcium Polycarbophil Tablet) 1 tab PO DAILY [facility] Last Admin: 11/25/22 08:31 Dose: 1 tab Docusate Sodium (Docusate Sodium 100 Mg Capsule) 100 mg PO DAILY PRN PRN Reason: constipation Last Admin: 11/14/22 21:03 Dose: 100 mg Finasteride (Finasteride 5 Mg Tablet) 5 mg PO DAILY [facility] Last Admin: 11/25/22 08:33 Dose: 5 mg Gabapentin (Gabapentin 300 Mg Capsule) 300 mg PO TID [facility] Last Admin: 11/25/22 13:59 Dose: 300 mg Guaifenesin/Dextromethorphan (Guaifenesin Dm 200/20/10 Ml 10 Ml Syrup) 10 ml PO Q4H PRN PRN Reason: Cough Last Admin: 11/20/22 05:31 Dose: 10 ml Hydroxyzine HCl (Hydroxyzine Hcl 25 Mg Tablet) 25 mg PO Q6H PRN PRN Reason: Anxiety Last Admin: 11/13/22 00:26 Dose: 25 mg Lamotrigine (Lamotrigine 25 Mg Tablet) 150 mg PO BID [facility] Last Admin: 11/25/22 08:29 Dose: 150 mg Latanoprost (Latanoprost 0.005 % Ophth No 2.5 Ml Drops) 1 drop EYE-BOTH BEDTIME [facility] Last Admin: 11/24/22 20:37 Dose: 1 drop Lidocaine (Lidocaine 5 % Ointment 35 Gm) 1 appl TOPICAL QID [facility] Last Admin: 11/25/22 14:03 Dose: 1 appl Lisinopril (Lisinopril 20 Mg Tablet) 20 mg PO DAILY [facility]; Protocol Last Admin: 11/25/22 08:31 Dose: 20 mg Magnesium Hydroxide (Milk Of Magnesia 30 Ml Oral.Susp) 30 ml PO DAILY PRN PRN Reason: Constipation Last Admin: 10/21/22 22:46 Dose: 30 ml Melatonin (Melatonin 3 Mg Tablet) 9 mg PO BEDTIME [facility] Last Admin: 11/24/22 20:27 Dose: 9 mg Multi-Ingred Cream/Lotion/Oil/Oint (Mineral Oil/Petrolatum,White 106 Gm Tube) 1 appl TOPICAL BID [facility]; Protocol Last Admin: 11/25/22 13:57 Dose: 1 appl Multivitamins/Vitamin C (Multivitamin Tablet) 1 tab PO DAILY [facility] Last Admin: 11/25/22 08:32 Dose: 1 tab Naltrexone HCl (Naltrexone Hcl 50 Mg Tablet) 50 mg PO DAILY [facility] Last Admin: 11/25/22 08:32 Dose: 50 mg Nortriptyline HCl (Nortriptyline Hcl 25 Mg Capsule) 50 mg PO BEDTIME [facility] Last Admin: 11/24/22 20:26 Dose: 50 mg Nystatin (Nystatin Powder 15 Gm Bottle) 1 appl TOPICAL BID [facility] Last Admin: 11/25/22 14:00 Dose: Not Given Omeprazole (Omeprazole 20 Mg Capsule.Dr) 20 mg PO BID@0630,1630 [facility] Last Admin: 11/25/22 16:19 Dose: 20 mg Ondansetron HCl (Ondansetron Odt 4 Mg Tab.Rapdis) 4 mg TRANSLINGU Q6H PRN PRN Reason: Nausea and Vomiting Oxybutynin Chloride (Oxybutynin Chloride Er 5 Mg Tab.Er.24) 10 mg PO DAILY [facility] Last Admin: 11/25/22 08:27 Dose: 10 mg Polyethylene Glycol (Polyethylene Glycol 3350 17 Gm Powd.Pack) 17 gm PO DAILY@1600 [facility] Last Admin: 11/25/22 16:18 Dose: 17 gm Pramipexole Dihydrochloride (Pramipexole Di-Hcl 0.25 Mg Tablet) 0.25 mg PO TID [facility] Last Admin: 11/25/22 13:58 Dose: 0.25 mg Psyllium Hydrophilic Mucilloid (Psyllium Seed 3.4 Gm Powd.Pack) 3.4 gm PO DAILY [facility] Last Admin: 11/25/22 08:33 Dose: 3.4 gm Quetiapine Fumarate (Quetiapine Fumarate 25 Mg Tablet) 25 mg PO Q4H PRN PRN Reason: Anxiety Last Admin: 11/24/22 11:08 Dose: 25 mg Quetiapine Fumarate (Quetiapine Fumarate 100 Mg Tablet) 100 mg PO BEDTIME [facility] Last Admin: 11/24/22 20:27 Dose: 100 mg Tamsulosin HCl (Tamsulosin Hcl 0.4 Mg Capsule) 0.4 mg PO DAILY [facility] Last Admin: 11/25/22 08:32 Dose: 0.4 mg Trazodone HCl (Trazodone Hcl 100 Mg Tablet) 200 mg PO BEDTIME [facility] Last Admin: 11/24/22 20:27 Dose: 200 mg Trazodone HCl (Trazodone Hcl 50 Mg Tablet) 50 mg PO BEDTIME PRN PRN Reason: Insomnia Last Admin: 11/24/22 21:24 Dose: 50 mg Venlafaxine HCl (Venlafaxine Hcl Er 75 Mg Cap.Er.24h) 75 mg PO DAILY [facility] Last Admin: 11/25/22 08:32 Dose: 75 mg Vitamin D (Cholecalciferol (Vitamin D3) 10 Mcg Tablet) 10 mcg PO DAILY [facility] Last Admin: 11/25/22 08:25 Dose: 10 mcg Allergies Allergies Allergy/AdvReac Type Severity Reaction Status Date / Time fentanyl [FENTANYL] Allergy Intermediate unknown Verified 04/08/22 07:00 Assessment & Plan Assessment & Plan (1) Cognitive and neurobehavioral dysfunction following brain injury: Status: Acute Code(s): G31.89 - Other specified degenerative diseases of nervous system; F09 - Unspecified mental disorder due to known physiological condition; S06.9X9S - Unspecified intracranial injury with loss of consciousness of unspecified duration, sequela (2) Major depressive disorder, recurrent severe without psychotic features: Status: Acute Code(s): F33.2 - Major depressive disorder, recurrent severe without psychotic features (3) Swallowing dysfunction: Status: Acute Code(s): R13.10 - Dysphagia, unspecified Assessment and Plan: See specific swallowing plan Plan The patient is a 67-year-old male, , 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 At this moment also, he has problems of housing since he will not be able to go back to his regular snf.? The patient has a long history of alcohol use disorder that he was not able to process or work on it.? Plan 1. Continue with the same treatment.? 2. We will work with the social worker assistant and DDS for a proper discharge planning.? 3. Continue with recommendations of Wound Care. 4. Increase Seroquel up to 150 mg po qhs. 10/30/22 restart lorazepam 1 hs prn insomnia norterip inc 100 hs level in 50 s monitor ekg 11/01 continue current tx plan 11/02/22- Bedside Swallow eval. s/p choking episode on 11/01. 2021 Increase Lexapro encourage CBT skills need supportive coaching patient increasingly hopeless helpless denies active self-harm check nortriptyline level 11/05/2022 Check nortriptyline level patient on Seroquel nortriptyline Lexapro.? Needs much reassurance and support the has difficulty interacting at times secondary to a hopelessness irritability passive SI.? Patient has having difficulty maintaining his posture in his chair unclear why this is happening for discuss safety issues with nursing will need OT and potentially Pt input? 11/06/2022 Patient depressed and anxious tried to review cognitive behavioral perspectives ways to emotionally manage current situational factors.? Patient has for an extended period of time had great deal of difficulty with any emotional a mental coping strategies.? Will and lorazepam p.r.n. 0.5 mg to help with anxiety tryin g get clarity from DTS regarding transition to snf setting positive reinforcement for patient's efforts at physical conditioning becomes demoralized easily denies active self-harm 11/07 continue tx. 11/08 no changes, pt had unwitnessed fall and hit head, head CT negative 11/09 no changes 11/10 no changes 11/11 no changes 11/12/22 acute med w/u neg incentive spirometer cont medication cbt skills cont pt/ot 11/12 medical workout came back negative. No changes in current treatment 11/14/2022 Patient depressed withdrawn more fatigued 11/18/21 taper lexapro start effexor lower seroquel sec to fatigue 11/19/21 Seroquel lowered inc venlafax 11/21/21 Pt with swallowing problem motor dysfx lower gabapentin lower nortriptyline lower seroquel 11/22 continue tx. 11/23 continue tx. 11/24/2022 More alert with lowered gabapentin nortriptyline lorazepam lower Lamictal to 150 b.i.d. hope to improve patient's balance motor function and consideration swallowing dysfunction can try and taper down on Seroquel in case this is also a contributing factor 11/25/2022 Patient has been active with OT change to venlafaxine from Lexapro and lowering of nortriptyline seems show some improvement Discharge planning continues Reason for contiued inpatient stay Substantial Risk for: harm to self, inability to function, rapid decompensation and med/psych decompensation Time Spent With Patient Time: Total time managing care of this patient today ____ minutes.
[2022-11-25 18:00] VITALS: BP 144/82; PULSE 75; TEMP 36.3; O2SAT 96
--- NOTE | 2022-11-25 19:13 | MHC.SL.SWA ---
Speech Pathologist Impression: Risk of Aspiration Due to: Neurological Condition Reduced Cognition Dysphasia Diet Status: Recommend continue on GROUND/MECH ALTERED (NDD2) and THIN liquids. Recommend pills CRUSHED in puree when possible. Liquid Consistency and Strategies for Safe Swallow: Liquid Intake Recommendation: Thin Liquid Intake Strategies: No Straws Double Swallow Solid Food Consistency: Dietary Recommendations: Grnd/Mech Altered (NDD2) Additional Modifications to Solid Foods: Recommend total 1:1 supervision during PO intake to monitor tolerance and provide cues as needed for aspiration precautions. SOCIAL MEDIA INTERN discussed safe eating behaviors with pt: Recommend taking small bites, chewing food well, and moistening foods with sauces and gravies. Recommend avoiding very dry foods, granulous or crumbly foods, and sticky textures. Recommend alternating bites of food with sips of liquid. SOCIAL MEDIA INTERN reiterated importance of sitting upright at 90 degrees whenever pt is eating or drinking, not eating or drinking when laying down or in reclined position. Pt mentioned that large pills are difficult for him to swallow. Recommend large pills to be crushed, small pills whole with PUREE. Oral Medication Intake: Crushed with Puree Please contact the pharmacy regarding appropriate crushable or liquid drug formulations that are available whenever modified delivery is recommended. Compensatory Strategies and Precautions to be Taken for Safe Swallow: Sitting Upright (90 deg) Double Swallow No Straw Small Bites and Sips Alternate Liquids/Solids Rate of Ingestion Change Avoid Specific Foods Supervision While Eating and Drinking for Safe Swallow: Total Supervision (1:1) Foods to Avoid: Avoid hard to chew solids, sticky textures, mixed consistencies, and foods that break up into small pieces (rice, popcorn, nuts) Swallowing Recommended Treatments: Compens. Strategy Educat. Recommendation for Speech: Inpatient Speech Therapy Comment: Pt seen during lunch for follow-up, education, toleration of diet. Patient was very pleasant and communicative throughout, although presented with mildly slow processing. Patient had c/o again re: dry chopped sausage that came with breakfast, noted that he eats with his eyes as well, and breakfast had seemed unpleasant. Patient did not have this c/o with lunch, which was chopped turkey with chopped carrots, extra gravy and orzo. Patient took bites of food, produced a prolonged period of mastication, evidenced mild delay initiating swallow. Patient was cued to swallow twice on each bite, and periodically cued to take sips of liquid intermittently through meal. Patient noted to eat slowly and carefully. Patient was given print out of recommended strategies for swallowing that were made following MBSS study last week. Recommendations were verbally reviewed and reinforced with patient given observed behavior during meal. Patient again expressed interest in having cereal for breakfast, this SOCIAL MEDIA INTERN was unable to assess safety of this type of mixed consistency during this session, it is recommended it be assessed at another time. Recommend patient continue on recommended diet of Ground/Mechanical Altered with THIN liquids, with pills Crushed in puree where possible. Frequency/Duration: Date Range for Service Req: Timeline to reassess: Cryogenics Repairer Clinican/Clinical Fellow: No Supervisory Statement: I have reviewed and agree with the student/clinical fellow's documentation: N/A Speech Language Pathologist: Sarah Cotter M.A., CCC-SOCIAL MEDIA INTERN
[2022-11-25] MEDS: Nortriptyline HCl 25 MG CAPSULE 50 MG PO (20:25)
[2022-11-25] MEDS: traZODone HCL 100 MG TABLET 200 MG PO (20:26)
[2022-11-25] MEDS: QUEtiapine Fumarate 100 MG TABLET PO (20:27)
[2022-11-25] MEDS: Latanoprost 0.005 % Ophth Sol 2.5 ML DROPS 1 DROP EYE-BOTH (20:33)
[2022-11-25] MEDS: Nystatin Powder 15 GM BOTTLE 1 APPL TOPICAL (20:46)
[2022-11-25] MEDS: Melatonin 3 MG TABLET 9 MG PO (21:30)
[2022-11-26 02:24] VITALS: BP 136/80; PULSE 64; RESP 18; O2SAT 94
[2022-11-26 02:30] VITALS: BP 136/80; PULSE 64; RESP 18; O2SAT 94
--- NOTE | 2022-11-26 02:39 | ECG_ITS ---
Test Reason : RIGHT SIDED CHEST WALL PAIN Blood Pressure : / mmHG Vent. Rate : 062 BPM Atrial Rate : 062 BPM P-R Int : 236 ms QRS Dur : 106 ms QT Int : 434 ms P-R-T Axes : 054 -13 098 degrees QTc Int : 440 ms Sinus rhythm with 1st degree A-V block Inferior infarct (cited on or before 27-OCT-2022) Abnormal ECG When compared with ECG of 27-OCT-2022 10:28, No significant change was found Referred By: Zarina Schmitz Electronically Signed By:Remberto Mathew
[2022-11-26] MEDS: Ibuprofen 800 MG TABLET PO (02:53)
[2022-11-26] MEDS: LORazepam 1 MG TABLET PO ×2 (02:53→21:12)
[2022-11-26] MEDS: Ondansetron ODT 4 MG TAB.RAPDIS TRANSLINGU (03:06)
--- NOTE | 2022-11-26 03:14 | PC.NURSE ---
0230 Zarina Schmitz called- notified 1. Samanta Barros is c/o of right sided anterior chest wall pain 2. pain is decribed as sharp and nonradiating 3. pain is reproducible by palpation and deep breaths 4. pt is anxious 5. vital signs p 64 rr 18 b/p 136/80 plan 6. auscultation of a/p lung field reveals clear breath sounds bilat plan a. stat ecg b. ativan 1 mg po c. ibuprofen 800 mg po
[2022-11-26 07:30] VITALS: BP 92/55; PULSE 68; RESP 15; TEMP 36.6; O2SAT 93
[2022-11-26] MEDS: Omeprazole 20 MG CAPSULE.DR PO ×2 (10:37→15:38)
[2022-11-26] MEDS: calcium polycarbophiL TABLET 1 TAB PO (10:37)
[2022-11-26] MEDS: Finasteride 5 MG TABLET PO (10:37)
[2022-11-26] MEDS: Multivitamin TABLET 1 TAB PO (10:37)
[2022-11-26] MEDS: Venlafaxine HCl ER 75 MG CAP.ER.24H PO (10:38)
[2022-11-26] MEDS: Cholecalciferol (Vitamin D3) 10 MCG TABLET PO (10:39)
[2022-11-26] MEDS: lamoTRIgine 25 MG TABLET 150 MG PO ×2 (10:39→21:10)
[2022-11-26] MEDS: Gabapentin 300 MG CAPSULE PO ×3 (10:39→21:10)
[2022-11-26] MEDS: Pramipexole Di-HCL 0.25 MG TABLET PO ×3 (10:40→21:14)
[2022-11-26] MEDS: Tamsulosin HCL 0.4 MG CAPSULE PO (10:40)
[2022-11-26] MEDS: Naltrexone HCl 50 MG TABLET PO (10:40)
[2022-11-26] MEDS: polyethylene glycoL 3350 17 GM POWD.PACK PO (15:38)
--- NOTE | 2022-11-26 16:43 | MHC.SL.SWA ---
Addendum entered and electronically signed by Maddy Harris MA, CCC-EMISSIONS TESTING TECHNICIAN 11/27/22 16:39: D.S. Original Note: Speech Pathologist Impression: Oropharyngeal Dysphagia Risk of Aspiration Due to: Neurological Condition Reduced Cognition Dysphasia Diet Status: Recommend continue on GROUND/MECH ALTERED (NDD2) and THIN liquids. Recommend pills CRUSHED in puree when possible. See full MBSImP report (11/21/22 note) for recommended strategies for PO intake. Liquid Consistency and Strategies for Safe Swallow: Liquid Intake Recommendation: Thin Liquid Intake Strategies: No Straws Double Swallow Solid Food Consistency: Dietary Recommendations: Grnd/Mech Altered (NDD2) Oral Medication Intake: Crushed with Puree Please contact the pharmacy regarding appropriate crushable or liquid drug formulations that are available whenever modified delivery is recommended. Compensatory Strategies and Precautions to be Taken for Safe Swallow: Sitting Upright (90 deg) Double Swallow No Straw Small Bites and Sips Alternate Liquids/Solids Rate of Ingestion Change Avoid Specific Foods Supervision While Eating and Drinking for Safe Swallow: Total Supervision (1:1) Foods to Avoid: Avoid hard to chew solids, sticky textures, mixed consistencies, and foods that break up into small pieces (rice, popcorn, nuts) Swallowing Recommended Treatments: Compens. Strategy Educat. Recommendation for Speech: Inpatient Speech Therapy Recommendations based on 11/21/22 MBSS: Recommend modified diet GROUND/MECHANICALLY ALTERED (NDD2) solids with THIN liquids and ASPIRATION PRECAUTIONS: -Continue total 1:1 supervision during PO intake, provide pt w/ cues as needed -Take small bites of food -Moisten food with sauces and gravies, ensuring sauces are mixed and blended in well with food -Chew food well -Avoid hard to chew solids, sticky textures, mixed consistencies, and foods that break up into small pieces (rice, popcorn, nuts) -Follow each bite with 2-3 additional dry swallow to promote pharyngeal clearance -After dry swallows, take sips of liquid to promote pharyngeal clearance -Take small, individual sips of liquid -Avoid taking consecutive sips -Avoid the use of straws -Follow sips with a throat clear then dry swallow -Maintain upright 90 degree position while eating and drinking and for at least 45 minutes afterwards -Ensure a rigorous daily oral care routine before first meal and after each subsequent meal -Crush pills in puree when possible (consult with pharmacy). If pill cannot be crushed, take additional sips of liquid after taking the pill to promote pharyngeal clearance. Take pills one at a time. See 11/21/22 MBSImP Note for more detailed report 11/26/22 EMISSIONS TESTING TECHNICIAN visit: Pt seen this afternoon, 11/26/22, for follow-up to 11/21/22 MBSS to provide education, monitor for diet toleration, and administer additional PO trials. Pt was sitting in common area watching television upon arrival. Visible large spot of drool on patient's chest. Pt reported episode of chest pain last night. EMISSIONS TESTING TECHNICIAN sat with patient to trial raisin bran cereal w/ milk. Pt confirmed he received it but did not have his paper w/ EMISSIONS TESTING TECHNICIAN cues on him. Pt required frequent reminders to take small bites, double swallow, and alternate between liquids and solids. Pt observed to cough and clear throat intermittently throughout visit. These behaviors were observed with larger bites, without alternating between liquid/solid, without double swallow. Pt provided additional information on the importance of these strategies while eating based on results of MBSS. Pt inquired about when he would advance to next level of solids. Pt expressed eagerness for less restrictive diet, however reported understanding the rationale for his current diet recommendations and EMISSIONS TESTING TECHNICIAN presence. Recommend that patient continues on ground/mech altered solids and continue to trial mixed consistencies and other solids of interest with EMISSIONS TESTING TECHNICIAN only. Patient Intake Coordinator Clinican/Clinical Fellow: Yes: Bridget Martinez M.A., CF-EMISSIONS TESTING TECHNICIAN Supervisory Statement: I have reviewed and agree with the student/clinical fellow's documentation: N/A Speech Language Pathologist: Sarah Cotter M.A., [facility]-EMISSIONS TESTING TECHNICIAN
[2022-11-26 18:00] VITALS: BP 136/75; PULSE 64; RESP 18; TEMP 36.2; O2SAT 95
[2022-11-26] MEDS: Latanoprost 0.005 % Ophth Sol 2.5 ML DROPS 1 DROP EYE-BOTH (21:11)
[2022-11-26] MEDS: Melatonin 3 MG TABLET 9 MG PO (21:12)
[2022-11-26] MEDS: Mineral Oil/Petrolatum,White 106 GM Tube 1 APPL TOPICAL (21:13)
[2022-11-26] MEDS: Nortriptyline HCl 25 MG CAPSULE 50 MG PO (21:13)
[2022-11-26] MEDS: traZODone HCL 100 MG TABLET 200 MG PO (21:14)
[2022-11-26] MEDS: QUEtiapine Fumarate 100 MG TABLET PO (21:14)
[2022-11-26] MEDS: Acetaminophen 325 MG TABLET 650 MG PO (21:15)
[2022-11-27 06:00] VITALS: BP 100/62; PULSE 72; RESP 15; TEMP 36.8; O2SAT 94
[2022-11-27 07:00] VITALS: BMI 31.6
[2022-11-27] MEDS: Omeprazole 20 MG CAPSULE.DR PO ×2 (09:34→17:08)
[2022-11-27] MEDS: Gabapentin 300 MG CAPSULE PO ×3 (09:34→20:18)
[2022-11-27] MEDS: Naltrexone HCl 50 MG TABLET PO (09:34)
[2022-11-27] MEDS: lamoTRIgine 25 MG TABLET 150 MG PO ×2 (09:34→20:19)
[2022-11-27] MEDS: Finasteride 5 MG TABLET PO (09:34)
[2022-11-27] MEDS: Cholecalciferol (Vitamin D3) 10 MCG TABLET PO (09:34)
[2022-11-27] MEDS: lisinopriL 20 MG TABLET PO (09:34)
[2022-11-27] MEDS: Tamsulosin HCL 0.4 MG CAPSULE PO (09:34)
[2022-11-27] MEDS: Venlafaxine HCl ER 75 MG CAP.ER.24H PO (09:35)
[2022-11-27] MEDS: calcium polycarbophiL TABLET 1 TAB PO (09:35)
[2022-11-27] MEDS: Multivitamin TABLET 1 TAB PO (09:35)
[2022-11-27] MEDS: amLODIPine Besylate 5 MG TABLET PO (09:35)
[2022-11-27] MEDS: Nystatin Powder 15 GM BOTTLE 1 APPL TOPICAL ×2 (09:36→20:21)
[2022-11-27] MEDS: Pramipexole Di-HCL 0.25 MG TABLET PO ×3 (09:37→20:21)
--- NOTE | 2022-11-27 13:17 | HO.PSYCHPN ---
Subjective Subjective Reason For Visit: Depression hopelessness irritability Diagnostics Vital Signs (24Hr): Vital Signs - 24 hr 11/26/22 18:00 Temperature 97.2 F Pulse Rate 64 Respiratory Rate 18 Blood Pressure 136/75 Pulse Oximetry 95 Oxygen Delivery Method Room Air BMI result Body Mass Index 31.7 Labs 11/13/22 07:43 11/12/22 09:32 Imaging Radiology Impressions: ITS Impressions Chest X-Ray 10/20/22 15:45 IMPRESSION: 1. Low lung volumes with bibasilar linear disc atelectasis versus scarring. 2. No airspace consolidation or effusion. Head CT 11/08/22 12:29 IMPRESSION: No acute intracranial hemorrhage or territorial infarction. Stable chronic postoperative changes with gliosis and encephalomalacia in the right frontal and right temporal lobes. Ex vacuo dilatation of the ventricles and diffuse parenchymal volume loss. Right-sided craniotomy changes. Chest X-Ray 11/12/22 10:32 IMPRESSION: Hypoexpanded lungs with bibasilar platelike atelectasis. Brain MRI 11/12/22 13:15 IMPRESSION: 1. No demonstrated acute intracranial abnormalities. 2. Chronic encephalomalacia of the right temporal, right frontal, and left occipital lobes. Small regions of chronic encephalomalacia in the parasagittal aspects of the bilateral parietal lobes. Moderate underlying microangiopathy and generalized cerebral volume loss. Chest X-Ray 11/14/22 15:52 IMPRESSION: Low lung volumes, bibasilar subsegmental atelectasis and slight elevation of the right hemidiaphragm similar to previous exam. Modified Barium Swallow 11/21/22 15:11 IMPRESSION: Laryngeal penetration on several occasions but no laryngeal aspiration. Mild retention of solid food in the valleculae which cleared with subsequent oral administration of water or thin barium. Correlate with speech therapy results. Medications Medications Current Medications Acetaminophen (Acetaminophen 325 Mg Tablet) 650 mg PO Q6H PRN PRN Reason: Headache/Pain Mild Scale (1-3) Last Admin: 11/26/22 21:15 Dose: 650 mg Al Hydroxide/Mg Hydroxide (Magnesium Hydrox/Alum Hydrox 30 Ml Oral.Susp) 30 ml PO Q6H PRN PRN Reason: Heartburn/Nausea Last Admin: 11/22/22 21:39 Dose: 30 ml Albuterol Sulfate (Albuterol Sulfate 90 Mcg 8 Gm Inhaler) 2 puff INHALE Q6H PRN PRN Reason: Wheezing Amlodipine Besylate (Amlodipine Besylate 5 Mg Tablet) 5 mg PO DAILY [facility]; Protocol Last Admin: 11/27/22 09:35 Dose: 5 mg Benzocaine (Throat Lozenge, Medicated Lozenge) 1 lozenge MUCOUS MEM Q2H PRN PRN Reason: Sore Throat Last Admin: 11/12/22 03:08 Dose: 1 lozenge Calcium Polycarbophil (Calcium Polycarbophil Tablet) 1 tab PO DAILY [facility] Last Admin: 11/27/22 09:35 Dose: 1 tab Docusate Sodium (Docusate Sodium 100 Mg Capsule) 100 mg PO DAILY PRN PRN Reason: constipation Last Admin: 11/14/22 21:03 Dose: 100 mg Finasteride (Finasteride 5 Mg Tablet) 5 mg PO DAILY [facility] Last Admin: 11/27/22 09:34 Dose: 5 mg Gabapentin (Gabapentin 300 Mg Capsule) 300 mg PO TID [facility] Last Admin: 11/27/22 09:34 Dose: 300 mg Guaifenesin/Dextromethorphan (Guaifenesin Dm 200/20/10 Ml 10 Ml Syrup) 10 ml PO Q4H PRN PRN Reason: Cough Last Admin: 11/20/22 05:31 Dose: 10 ml Hydroxyzine HCl (Hydroxyzine Hcl 25 Mg Tablet) 25 mg PO Q6H PRN PRN Reason: Anxiety Last Admin: 11/13/22 00:26 Dose: 25 mg Lamotrigine (Lamotrigine 25 Mg Tablet) 150 mg PO BID [facility] Last Admin: 11/27/22 09:34 Dose: 150 mg Latanoprost (Latanoprost 0.005 % Ophth No 2.5 Ml Drops) 1 drop EYE-BOTH BEDTIME [facility] Last Admin: 11/26/22 21:11 Dose: 1 drop Lidocaine (Lidocaine 5 % Ointment 35 Gm) 1 appl TOPICAL QID [facility] Last Admin: 11/27/22 09:36 Dose: Not Given Lisinopril (Lisinopril 20 Mg Tablet) 20 mg PO DAILY [facility]; Protocol Last Admin: 11/27/22 09:34 Dose: 20 mg Lorazepam (Lorazepam 1 Mg Tablet) 1 mg PO BEDTIME [facility] Last Admin: 11/26/22 21:12 Dose: 1 mg Magnesium Hydroxide (Milk Of Magnesia 30 Ml Oral.Susp) 30 ml PO DAILY PRN PRN Reason: Constipation Last Admin: 10/21/22 22:46 Dose: 30 ml Melatonin (Melatonin 3 Mg Tablet) 9 mg PO BEDTIME [facility] Last Admin: 11/26/22 21:12 Dose: 9 mg Multi-Ingred Cream/Lotion/Oil/Oint (Mineral Oil/Petrolatum,White 106 Gm Tube) 1 appl TOPICAL BID [facility]; Protocol Last Admin: 11/27/22 09:36 Dose: Not Given Multivitamins/Vitamin C (Multivitamin Tablet) 1 tab PO DAILY [facility] Last Admin: 11/27/22 09:35 Dose: 1 tab Naltrexone HCl (Naltrexone Hcl 50 Mg Tablet) 50 mg PO DAILY [facility] Last Admin: 11/27/22 09:34 Dose: 50 mg Nortriptyline HCl (Nortriptyline Hcl 25 Mg Capsule) 50 mg PO BEDTIME [facility] Last Admin: 11/26/22 21:13 Dose: 50 mg Nystatin (Nystatin Powder 15 Gm Bottle) 1 appl TOPICAL BID [facility] Last Admin: 11/27/22 09:36 Dose: 1 appl Omeprazole (Omeprazole 20 Mg Capsule.Dr) 20 mg PO BID@0630,1630 [facility] Last Admin: 11/27/22 09:34 Dose: 20 mg Ondansetron HCl (Ondansetron Odt 4 Mg Tab.Rapdis) 4 mg TRANSLINGU Q6H PRN PRN Reason: Nausea and Vomiting Last Admin: 11/26/22 03:06 Dose: 4 mg Oxybutynin Chloride (Oxybutynin Chloride Er 5 Mg Tab.Er.24) 10 mg PO DAILY [facility] Last Admin: 11/27/22 09:34 Dose: 10 mg Polyethylene Glycol (Polyethylene Glycol 3350 17 Gm Powd.Pack) 17 gm PO DAILY@1600 [facility] Last Admin: 11/26/22 15:38 Dose: 17 gm Pramipexole Dihydrochloride (Pramipexole Di-Hcl 0.25 Mg Tablet) 0.25 mg PO TID [facility] Last Admin: 11/27/22 09:37 Dose: 0.25 mg Psyllium Hydrophilic Mucilloid (Psyllium Seed 3.4 Gm Powd.Pack) 3.4 gm PO DAILY [facility] Last Admin: 11/27/22 09:37 Dose: Not Given Quetiapine Fumarate (Quetiapine Fumarate 25 Mg Tablet) 25 mg PO Q4H PRN PRN Reason: Anxiety Last Admin: 11/24/22 11:08 Dose: 25 mg Quetiapine Fumarate (Quetiapine Fumarate 100 Mg Tablet) 100 mg PO BEDTIME [facility] Last Admin: 11/26/22 21:14 Dose: 100 mg Tamsulosin HCl (Tamsulosin Hcl 0.4 Mg Capsule) 0.4 mg PO DAILY [facility] Last Admin: 11/27/22 09:34 Dose: 0.4 mg Trazodone HCl (Trazodone Hcl 100 Mg Tablet) 200 mg PO BEDTIME [facility] Last Admin: 11/26/22 21:14 Dose: 200 mg Trazodone HCl (Trazodone Hcl 50 Mg Tablet) 50 mg PO BEDTIME PRN PRN Reason: Insomnia Last Admin: 11/24/22 21:24 Dose: 50 mg Venlafaxine HCl (Venlafaxine Hcl Er 75 Mg Cap.Er.24h) 75 mg PO DAILY [facility] Last Admin: 11/27/22 09:35 Dose: 75 mg Vitamin D (Cholecalciferol (Vitamin D3) 10 Mcg Tablet) 10 mcg PO DAILY [facility] Last Admin: 11/27/22 09:34 Dose: 10 mcg Allergies Allergies Allergy/AdvReac Type Severity Reaction Status Date / Time fentanyl [FENTANYL] Allergy Intermediate unknown Verified 04/08/22 07:00 Assessment & Plan Assessment & Plan (1) Cognitive and neurobehavioral dysfunction following brain injury: Status: Acute Code(s): G31.89 - Other specified degenerative diseases of nervous system; F09 - Unspecified mental disorder due to known physiological condition; S06.9X9S - Unspecified intracranial injury with loss of consciousness of unspecified duration, sequela (2) Major depressive disorder, recurrent severe without psychotic features: Status: Acute Code(s): F33.2 - Major depressive disorder, recurrent severe without psychotic features (3) Swallowing dysfunction: Status: Acute Code(s): R13.10 - Dysphagia, unspecified Assessment and Plan: See specific swallowing plan Plan The patient is a 67-year-old male, , 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 At this moment also, he has problems of housing since he will not be able to go back to his regular [facility].? The patient has a long history of alcohol use disorder that he was not able to process or work on it.? Plan 1. Continue with the same treatment.? 2. We will work with the school social worker and DDS for a proper discharge planning.? 3. Continue with recommendations of Wound Care. 4. Increase Seroquel up to 150 mg po qhs. 10/30/22 restart lorazepam 1 hs prn insomnia norterip inc 100 hs level in 50 s monitor ekg 11/01 continue current tx plan 11/02/22- Bedside Swallow eval. s/p choking episode on 11/01. 2021 Increase Lexapro encourage CBT skills need supportive coaching patient increasingly hopeless helpless denies active self-harm check nortriptyline level 11/05/2022 Check nortriptyline level patient on Seroquel nortriptyline Lexapro.? Needs much reassurance and support the has difficulty interacting at times secondary to a hopelessness irritability passive SI.? Patient has having difficulty maintaining his posture in his chair unclear why this is happening for discuss safety issues with nursing will need OT and potentially Pt input? 11/06/2022 Patient depressed and anxious tried to review cognitive behavioral perspectives ways to emotionally manage current situational factors.? Patient has for an extended period of time had great deal of difficulty with any emotional a mental coping strategies.? Will and lorazepam p.r.n. 0.5 mg to help with anxiety trying get clarity from DTS regarding transition to [facility] setting positive reinforcement for patient's efforts at physical conditioning becomes demoralized easily denies active self-harm 11/07 continue tx. 11/08 no changes, pt had unwitnessed fall and hit head, head CT negative 11/09 no changes 11/10 no changes 11/11 no changes 11/12/22 acute med w/u neg incentive spirometer cont medication cbt skills cont pt/ot 11/12 medical workout came back negative. No changes in current treatment 11/14/2022 Patient depressed withdrawn more fatigued 11/18/21 taper lexapro start effexor lower seroquel sec to fatigue 11/19/21 Seroquel lowered inc venlafax 11/21/21 Pt with swallowing problem motor dysfx lower gabapentin lower nortriptyline lower seroquel 11/22 continue tx. 11/23 continue tx. 11/24/2022 More alert with lowered gabapentin nortriptyline lorazepam lower Lamictal to 150 b.i.d. hope to improve patient's balance motor function and consideration swallowing dysfunction can try and taper down on Seroquel in case this is also a contributing factor 11/25/2022 Patient has been active with OT change to venlafaxine from Lexapro and lowering of nortriptyline seems show some improvement Discharge planning continues Time Spent With Patient Time: Total time managing care of this patient today ____ minutes.
--- NOTE | 2022-11-27 16:25 | HO.PSYCHPN ---
Subjective Subjective Date of Service: 11/27/22 Reason For Visit: Depression hopelessness irritability Subjective Notes: Conditional Voluntary Interim History: The nursing staff reported the patient showered yesterday. He complained of anxiety and depression 08/25. He has been irritated by another peer who is her sleep manic. The social services analyst reported that [facility] is looking for long-term care but it is unclear that discharge planning at this moment. On interview the patient complains of depression he states that he is suicidal but he is able to contract for safety in the facility. Mental Status Exam Mental Status Exam Patient Appearance: Well Grooomed Patient Orientation: Person and Situation Level of Consciousness: Awake and Appropriate Patient Behavior: Guarded and Passive Mood Description: Calm Affect Description: Constricted Patient Cognition Impaired: No Ability to Follow Directions: Good Speech Pattern: Clear Hallucinations: None Delusions: Not Present Thought Process: Linear Thought Content: positive for [place] and positive for Linear Judgement: Fair Diagnostics Vital Signs (24Hr): Vital Signs - 24 hr 11/26/22 18:00 11/27/22 06:00 Temperature 97.2 F 98.2 F Pulse Rate 64 72 Respiratory Rate 18 15 Blood Pressure 136/75 100/62 Pulse Oximetry 95 94 Oxygen Delivery Method Room Air Room Air BMI result Body Mass Index 31.7 Labs 11/13/22 07:43 11/12/22 09:32 Imaging Radiology Impressions: ITS Impressions Chest X-Ray 10/20/22 15:45 IMPRESSION: 1. Low lung volumes with bibasilar linear disc atelectasis versus scarring. 2. No airspace consolidation or effusion. Head CT 11/08/22 12:29 IMPRESSION: No acute intracranial hemorrhage or territorial infarction. Stable chronic postoperative changes with gliosis and encephalomalacia in the right frontal and right temporal lobes. Ex vacuo dilatation of the ventricles and diffuse parenchymal volume loss. Right-sided craniotomy changes. Chest X-Ray 11/12/22 10:32 IMPRESSION: Hypoexpanded lungs with bibasilar platelike atelectasis. Brain MRI 11/12/22 13:15 IMPRESSION: 1. No demonstrated acute intracranial abnormalities. 2. Chronic encephalomalacia of the right temporal, right frontal, and left occipital lobes. Small regions of chronic encephalomalacia in the parasagittal aspects of the bilateral parietal lobes. Moderate underlying microangiopathy and generalized cerebral volume loss. Chest X-Ray 11/14/22 15:52 IMPRESSION: Low lung volumes, bibasilar subsegmental atelectasis and slight elevation of the right hemidiaphragm similar to previous exam. Modified Barium Swallow 11/21/22 15:11 IMPRESSION: Laryngeal penetration on several occasions but no laryngeal aspiration. Mild retention of solid food in the valleculae which cleared with subsequent oral administration of water or thin barium. Correlate with speech therapy results. Medications Medications Current Medications Acetaminophen (Acetaminophen 325 Mg Tablet) 650 mg PO Q6H PRN PRN Reason: Headache/Pain Mild Scale (1-3) Last Admin: 11/26/22 21:15 Dose: 650 mg Al Hydroxide/Mg Hydroxide (Magnesium Hydrox/Alum Hydrox 30 Ml Oral.Susp) 30 ml PO Q6H PRN PRN Reason: Heartburn/Nausea Last Admin: 11/22/22 21:39 Dose: 30 ml Albuterol Sulfate (Albuterol Sulfate 90 Mcg 8 Gm Inhaler) 2 puff INHALE Q6H PRN PRN Reason: Wheezing Amlodipine Besylate (Amlodipine Besylate 5 Mg Tablet) 5 mg PO DAILY [facility]; Protocol Last Admin: 11/27/22 09:35 Dose: 5 mg Benzocaine (Throat Lozenge, Medicated Lozenge) 1 lozenge MUCOUS MEM Q2H PRN PRN Reason: Sore Throat Last Admin: 11/12/22 03:08 Dose: 1 lozenge Calcium Polycarbophil (Calcium Polycarbophil Tablet) 1 tab PO DAILY [facility] Last Admin: 11/27/22 09:35 Dose: 1 tab Docusate Sodium (Docusate Sodium 100 Mg Capsule) 100 mg PO DAILY PRN PRN Reason: constipation Last Admin: 11/14/22 21:03 Dose: 100 mg Finasteride (Finasteride 5 Mg Tablet) 5 mg PO DAILY [facility] Last Admin: 11/27/22 09:34 Dose: 5 mg Gabapentin (Gabapentin 300 Mg Capsule) 300 mg PO TID [facility] Last Admin: 11/27/22 09:34 Dose: 300 mg Guaifenesin/Dextromethorphan (Guaifenesin Dm 200/20/10 Ml 10 Ml Syrup) 10 ml PO Q4H PRN PRN Reason: Cough Last Admin: 11/20/22 05:31 Dose: 10 ml Hydroxyzine HCl (Hydroxyzine Hcl 25 Mg Tablet) 25 mg PO Q6H PRN PRN Reason: Anxiety Last Admin: 11/13/22 00:26 Dose: 25 mg Lamotrigine (Lamotrigine 25 Mg Tablet) 150 mg PO BID [facility] Last Admin: 11/27/22 09:34 Dose: 150 mg Latanoprost (Latanoprost 0.005 % Ophth No 2.5 Ml Drops) 1 drop EYE-BOTH BEDTIME [facility] Last Admin: 11/26/22 21:11 Dose: 1 drop Lidocaine (Lidocaine 5 % Ointment 35 Gm) 1 appl TOPICAL QID [facility] Last Admin: 11/27/22 14:51 Dose: Not Given Lisinopril (Lisinopril 20 Mg Tablet) 20 mg PO DAILY [facility]; Protocol Last Admin: 11/27/22 09:34 Dose: 20 mg Lorazepam (Lorazepam 1 Mg Tablet) 1 mg PO BEDTIME [facility] Last Admin: 11/26/22 21:12 Dose: 1 mg Magnesium Hydroxide (Milk Of Magnesia 30 Ml Oral.Susp) 30 ml PO DAILY PRN PRN Reason: Constipation Last Admin: 10/21/22 22:46 Dose: 30 ml Melatonin (Melatonin 3 Mg Tablet) 9 mg PO BEDTIME [facility] Last Admin: 11/26/22 21:12 Dose: 9 mg Multi-Ingred Cream/Lotion/Oil/Oint (Mineral Oil/Petrolatum,White 106 Gm Tube) 1 appl TOPICAL BID [facility]; Protocol Last Admin: 11/27/22 09:36 Dose: Not Given Multivitamins/Vitamin C (Multivitamin Tablet) 1 tab PO DAILY [facility] Last Admin: 11/27/22 09:35 Dose: 1 tab Naltrexone HCl (Naltrexone Hcl 50 Mg Tablet) 50 mg PO DAILY [facility] Last Admin: 11/27/22 09:34 Dose: 50 mg Nortriptyline HCl (Nortriptyline Hcl 25 Mg Capsule) 50 mg PO BEDTIME [facility] Last Admin: 11/26/22 21:13 Dose: 50 mg Nystatin (Nystatin Powder 15 Gm Bottle) 1 appl TOPICAL BID [facility] Last Admin: 11/27/22 09:36 Dose: 1 appl Omeprazole (Omeprazole 20 Mg Capsule.Dr) 20 mg PO BID@0630,1630 [facility] Last Admin: 11/27/22 09:34 Dose: 20 mg Ondansetron HCl (Ondansetron Odt 4 Mg Tab.Rapdis) 4 mg TRANSLINGU Q6H PRN PRN Reason: Nausea and Vomiting Last Admin: 11/26/22 03:06 Dose: 4 mg Oxybutynin Chloride (Oxybutynin Chloride Er 5 Mg Tab.Er.24) 10 mg PO DAILY [facility] Last Admin: 11/27/22 09:34 Dose: 10 mg Polyethylene Glycol (Polyethylene Glycol 3350 17 Gm Powd.Pack) 17 gm PO DAILY@1600 [facility] Last Admin: 11/26/22 15:38 Dose: 17 gm Pramipexole Dihydrochloride (Pramipexole Di-Hcl 0.25 Mg Tablet) 0.25 mg PO TID [facility] Last Admin: 11/27/22 09:37 Dose: 0.25 mg Psyllium Hydrophilic Mucilloid (Psyllium Seed 3.4 Gm Powd.Pack) 3.4 gm PO DAILY [facility] Last Admin: 11/27/22 09:37 Dose: Not Given Quetiapine Fumarate (Quetiapine Fumarate 25 Mg Tablet) 25 mg PO Q4H PRN PRN Reason: Anxiety Last Admin: 11/24/22 11:08 Dose: 25 mg Quetiapine Fumarate (Quetiapine Fumarate 100 Mg Tablet) 100 mg PO BEDTIME [facility] Last Admin: 11/26/22 21:14 Dose: 100 mg Tamsulosin HCl (Tamsulosin Hcl 0.4 Mg Capsule) 0.4 mg PO DAILY [facility] Last Admin: 11/27/22 09:34 Dose: 0.4 mg Trazodone HCl (Trazodone Hcl 100 Mg Tablet) 200 mg PO BEDTIME [facility] Last Admin: 11/26/22 21:14 Dose: 200 mg Trazodone HCl (Trazodone Hcl 50 Mg Tablet) 50 mg PO BEDTIME PRN PRN Reason: Insomnia Last Admin: 11/24/22 21:24 Dose: 50 mg Venlafaxine HCl (Venlafaxine Hcl Er 75 Mg Cap.Er.24h) 75 mg PO DAILY [facility] Last Admin: 11/27/22 09:35 Dose: 75 mg Vitamin D (Cholecalciferol (Vitamin D3) 10 Mcg Tablet) 10 mcg PO DAILY [facility] Last Admin: 11/27/22 09:34 Dose: 10 mcg Allergies Allergies Allergy/AdvReac Type Severity Reaction Status Date / Time fentanyl [FENTANYL] Allergy Intermediate unknown Verified 04/08/22 07:00 Assessment & Plan Assessment & Plan (1) Cognitive and neurobehavioral dysfunction following brain injury: Status: Acute Code(s): G31.89 - Other specified degenerative diseases of nervous system; F09 - Unspecified mental disorder due to known physiological condition; S06.9X9S - Unspecified intracranial injury with loss of consciousness of unspecified duration, sequela (2) Major depressive disorder, recurrent severe without psychotic features: Status: Acute Code(s): F33.2 - Major depressive disorder, recurrent severe without psychotic features (3) Swallowing dysfunction: Status: Acute Code(s): R13.10 - Dysphagia, unspecified Assessment and Plan: See specific swallowing plan Plan The patient is a 67-year-old male, , 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 At this moment also, he has problems of housing since he will not be able to go back to his regular intermediate.? The patient has a long history of alcohol use disorder that he was not able to process or work on it.? Plan 1. Continue with the same treatment.? 2. We will work with the social services analyst and DDS for a proper discharge planning.? 3. Continue with recommendations of Wound Care. 4. Increase Seroquel up to 150 mg po qhs. 10/30/22 restart lorazepam 1 hs prn insomnia norterip inc 100 hs level in 50 s monitor ekg 11/01 continue current tx plan 11/02/22- Bedside Swallow eval. s/p choking episode on 11/01. 2021 Increase Lexapro encourage CBT skills need supportive coaching patient increasingly hopeless helpless denies active self-harm check nortriptyline level 11/05/2022 Check nortriptyline level patient on Seroquel nortriptyline Lexapro.? Needs much reassurance and support the has difficulty interacting at times secondary to a hopelessness irritability passive SI.? Patient has having difficulty maintaining his posture in his chair unclear why this is happening for discuss safety issues with nursing will need OT and potentially Pt input? 11/06/2022 Patient depressed and anxious tried to review cognitive behavioral perspectives ways to emotionally manage current situational factors.? Patient has for an extended period of time had great deal of difficulty with any emotional a mental coping strategies.? Will and lorazepam p.r.n. 0.5 mg to help with anxiety trying get clarity from DTS regarding transition to intermediate setting positive reinforcement for patient's efforts at physical conditioning becomes demoralized easily denies active self-harm 11/07 continue tx. 11/08 no changes, pt had unwitnessed fall and hit head, head CT negative 11/09 no changes 11/10 no changes 11/11 no changes 11/12/22 acute med w/u neg incentive spirometer cont medication cbt skills cont pt/ot 11/12 medical workout came back negative. No changes in current treatment 11/14/2022 Patient depressed withdrawn more fatigued 11/18/21 taper lexapro start effexor lower seroquel sec to fatigue 11/19/21 Seroquel lowered inc venlafax 11/21/21 Pt with swallowing problem motor dysfx lower gabapentin lower nortriptyline lower seroquel 11/22 continue tx. 11/23 continue tx. 11/24/2022 More alert with lowered gabapentin nortriptyline lorazepam lower Lamictal to 150 b.i.d. hope to improve patient's balance motor function and consideration swallowing dysfunction can try and taper down on Seroquel in case this is also a contributing factor 11/25/2022 Patient has been active with OT change to venlafaxine from Lexapro and lowering of nortriptyline seems show some improvement Discharge planning continues 11/26/2022 the patient reports worsening his mood being more depressed and anxious. We will discuss the case with Dr. Haskins. Reason for contiued inpatient stay Substantial Risk for: inability to function, rapid decompensation and med/psych decompensation Time Spent With Patient Time: Total time managing care of this patient today ____ minutes.
[2022-11-27] MEDS: polyethylene glycoL 3350 17 GM POWD.PACK PO (17:08)
[2022-11-27 18:00] VITALS: BP 116/70; PULSE 74; RESP 17; TEMP 36.2; O2SAT 99
[2022-11-27] MEDS: Acetaminophen 325 MG TABLET 650 MG PO (20:18)
[2022-11-27] MEDS: Latanoprost 0.005 % Ophth Sol 2.5 ML DROPS 1 DROP EYE-BOTH (20:19)
[2022-11-27] MEDS: Lidocaine 5 % Ointment 35 GM 1 APPL TOPICAL (20:20)
[2022-11-27] MEDS: Melatonin 3 MG TABLET 9 MG PO (20:20)
[2022-11-27] MEDS: LORazepam 1 MG TABLET PO (20:20)
[2022-11-27] MEDS: Nortriptyline HCl 25 MG CAPSULE 50 MG PO (20:21)
[2022-11-27] MEDS: QUEtiapine Fumarate 100 MG TABLET PO (20:21)
[2022-11-27] MEDS: traZODone HCL 100 MG TABLET 200 MG PO (20:21)
[2022-11-28] MEDS: Omeprazole 20 MG CAPSULE.DR PO ×2 (05:31→16:30)
[2022-11-28 06:00] VITALS: BP 104/62; PULSE 70; RESP 16; TEMP 36.6; O2SAT 98
[2022-11-28] MEDS: Cholecalciferol (Vitamin D3) 10 MCG TABLET PO (10:47)
[2022-11-28] MEDS: lisinopriL 20 MG TABLET PO (10:47)
[2022-11-28] MEDS: calcium polycarbophiL TABLET 1 TAB PO (10:47)
[2022-11-28] MEDS: Multivitamin TABLET 1 TAB PO (10:47)
[2022-11-28] MEDS: Venlafaxine HCl ER 75 MG CAP.ER.24H PO (10:47)
[2022-11-28] MEDS: Naltrexone HCl 50 MG TABLET PO (10:48)
[2022-11-28] MEDS: Pramipexole Di-HCL 0.25 MG TABLET PO ×3 (10:48→20:37)
[2022-11-28] MEDS: amLODIPine Besylate 5 MG TABLET PO (10:48)
[2022-11-28] MEDS: Gabapentin 300 MG CAPSULE PO ×3 (10:48→20:37)
[2022-11-28] MEDS: lamoTRIgine 25 MG TABLET 150 MG PO ×2 (10:48→20:36)
[2022-11-28] MEDS: Finasteride 5 MG TABLET PO (10:48)
[2022-11-28] MEDS: Tamsulosin HCL 0.4 MG CAPSULE PO (10:48)
[2022-11-28] MEDS: Lidocaine 5 % Ointment 35 GM 1 APPL TOPICAL (10:49)
[2022-11-28] MEDS: Nystatin Powder 15 GM BOTTLE 1 APPL TOPICAL ×2 (10:49→20:46)
[2022-11-28] MEDS: Mineral Oil/Petrolatum,White 106 GM Tube 1 APPL TOPICAL (10:49)
--- NOTE | 2022-11-28 13:33 | HO.PSYCHPN ---
Subjective Subjective Date of Service: 11/28/22 Reason For Visit: Depression hopelessness irritability Subjective Notes: Conditional Voluntary Interim History: The nursing staff reported the patient had good appetite and ate well, he has a 10 to a few groups and he has is working with occupational therapist to 2 week his wheelchair to his comfort. The social work specialist reported that DDS consulted the team and they are going to come to screen him on December 08 at 10:00 o'clock to CV suitable for [facility] facility. The patient has complained of depression and anxiety but he has been fully compliant with treatment. No new symptoms Mental Status Exam Mental Status Exam Patient Appearance: Appropriate Patient Orientation: Person Level of Consciousness: Awake Patient Behavior: Guarded and Cooperative Mood Description: Withdrawn Affect Description: Constricted Patient Cognition Impaired: Yes Ability to Follow Directions: Good Speech Pattern: Clear Hallucinations: None Delusions: Not Present Thought Process: Linear Thought Content: positive for [place] and positive for Circumstantial Judgement: Fair Diagnostics Vital Signs (24Hr): Vital Signs - 24 hr 11/27/22 18:00 11/28/22 06:00 Temperature 97.2 F 97.8 F Pulse Rate 74 70 Respiratory Rate 17 16 Blood Pressure 116/70 104/62 Pulse Oximetry 99 98 Oxygen Delivery Method Room Air Room Air BMI result Body Mass Index 31.7 Labs 11/13/22 07:43 11/12/22 09:32 Imaging Radiology Impressions: ITS Impressions Chest X-Ray 10/20/22 15:45 IMPRESSION: 1. Low lung volumes with bibasilar linear disc atelectasis versus scarring. 2. No airspace consolidation or effusion. Head CT 11/08/22 12:29 IMPRESSION: No acute intracranial hemorrhage or territorial infarction. Stable chronic postoperative changes with gliosis and encephalomalacia in the right frontal and right temporal lobes. Ex vacuo dilatation of the ventricles and diffuse parenchymal volume loss. Right-sided craniotomy changes. Chest X-Ray 11/12/22 10:32 IMPRESSION: Hypoexpanded lungs with bibasilar platelike atelectasis. Brain MRI 11/12/22 13:15 IMPRESSION: 1. No demonstrated acute intracranial abnormalities. 2. Chronic encephalomalacia of the right temporal, right frontal, and left occipital lobes. Small regions of chronic encephalomalacia in the parasagittal aspects of the bilateral parietal lobes. Moderate underlying microangiopathy and generalized cerebral volume loss. Chest X-Ray 11/14/22 15:52 IMPRESSION: Low lung volumes, bibasilar subsegmental atelectasis and slight elevation of the right hemidiaphragm similar to previous exam. Modified Barium Swallow 11/21/22 15:11 IMPRESSION: Laryngeal penetration on several occasions but no laryngeal aspiration. Mild retention of solid food in the valleculae which cleared with subsequent oral administration of water or thin barium. Correlate with speech therapy results. Medications Medications Current Medications Acetaminophen (Acetaminophen 325 Mg Tablet) 650 mg PO Q6H PRN PRN Reason: Headache/Pain Mild Scale (1-3) Last Admin: 11/27/22 20:18 Dose: 650 mg Al Hydroxide/Mg Hydroxide (Magnesium Hydrox/Alum Hydrox 30 Ml Oral.Susp) 30 ml PO Q6H PRN PRN Reason: Heartburn/Nausea Last Admin: 11/22/22 21:39 Dose: 30 ml Albuterol Sulfate (Albuterol Sulfate 90 Mcg 8 Gm Inhaler) 2 puff INHALE Q6H PRN PRN Reason: Wheezing Amlodipine Besylate (Amlodipine Besylate 5 Mg Tablet) 5 mg PO DAILY [facility]; Protocol Last Admin: 11/28/22 10:48 Dose: 5 mg Benzocaine (Throat Lozenge, Medicated Lozenge) 1 lozenge MUCOUS MEM Q2H PRN PRN Reason: Sore Throat Last Admin: 11/12/22 03:08 Dose: 1 lozenge Calcium Polycarbophil (Calcium Polycarbophil Tablet) 1 tab PO DAILY [facility] Last Admin: 11/28/22 10:47 Dose: 1 tab Docusate Sodium (Docusate Sodium 100 Mg Capsule) 100 mg PO DAILY PRN PRN Reason: constipation Last Admin: 11/14/22 21:03 Dose: 100 mg Finasteride (Finasteride 5 Mg Tablet) 5 mg PO DAILY [facility] Last Admin: 11/28/22 10:48 Dose: 5 mg Gabapentin (Gabapentin 300 Mg Capsule) 300 mg PO TID [facility] Last Admin: 11/28/22 10:48 Dose: 300 mg Guaifenesin/Dextromethorphan (Guaifenesin Dm 200/20/10 Ml 10 Ml Syrup) 10 ml PO Q4H PRN PRN Reason: Cough Last Admin: 11/20/22 05:31 Dose: 10 ml Hydroxyzine HCl (Hydroxyzine Hcl 25 Mg Tablet) 25 mg PO Q6H PRN PRN Reason: Anxiety Last Admin: 11/13/22 00:26 Dose: 25 mg Lamotrigine (Lamotrigine 25 Mg Tablet) 150 mg PO BID [facility] Last Admin: 11/28/22 10:48 Dose: 150 mg Latanoprost (Latanoprost 0.005 % Ophth No 2.5 Ml Drops) 1 drop EYE-BOTH BEDTIME [facility] Last Admin: 11/27/22 20:19 Dose: 1 drop Lidocaine (Lidocaine 5 % Ointment 35 Gm) 1 appl TOPICAL QID [facility] Last Admin: 11/28/22 10:49 Dose: 1 appl Lisinopril (Lisinopril 20 Mg Tablet) 20 mg PO DAILY [facility]; Protocol Last Admin: 11/28/22 10:47 Dose: 20 mg Lorazepam (Lorazepam 1 Mg Tablet) 1 mg PO BEDTIME [facility] Last Admin: 11/27/22 20:20 Dose: 1 mg Magnesium Hydroxide (Milk Of Magnesia 30 Ml Oral.Susp) 30 ml PO DAILY PRN PRN Reason: Constipation Last Admin: 10/21/22 22:46 Dose: 30 ml Melatonin (Melatonin 3 Mg Tablet) 9 mg PO BEDTIME [facility] Last Admin: 11/27/22 20:20 Dose: 9 mg Multi-Ingred Cream/Lotion/Oil/Oint (Mineral Oil/Petrolatum,White 106 Gm Tube) 1 appl TOPICAL BID [facility]; Protocol Last Admin: 11/28/22 10:49 Dose: 1 appl Multivitamins/Vitamin C (Multivitamin Tablet) 1 tab PO DAILY [facility] Last Admin: 11/28/22 10:47 Dose: 1 tab Naltrexone HCl (Naltrexone Hcl 50 Mg Tablet) 50 mg PO DAILY [facility] Last Admin: 11/28/22 10:48 Dose: 50 mg Nortriptyline HCl (Nortriptyline Hcl 25 Mg Capsule) 50 mg PO BEDTIME [facility] Last Admin: 11/27/22 20:21 Dose: 50 mg Nystatin (Nystatin Powder 15 Gm Bottle) 1 appl TOPICAL BID [facility] Last Admin: 11/28/22 10:49 Dose: 1 appl Omeprazole (Omeprazole 20 Mg Capsule.Dr) 20 mg PO BID@0630,1630 [facility] Last Admin: 11/28/22 05:31 Dose: 20 mg Ondansetron HCl (Ondansetron Odt 4 Mg Tab.Rapdis) 4 mg TRANSLINGU Q6H PRN PRN Reason: Nausea and Vomiting Last Admin: 11/26/22 03:06 Dose: 4 mg Oxybutynin Chloride (Oxybutynin Chloride Er 5 Mg Tab.Er.24) 10 mg PO DAILY [facility] Last Admin: 11/28/22 10:47 Dose: 10 mg Polyethylene Glycol (Polyethylene Glycol 3350 17 Gm Powd.Pack) 17 gm PO DAILY@1600 [facility] Last Admin: 11/27/22 17:08 Dose: 17 gm Pramipexole Dihydrochloride (Pramipexole Di-Hcl 0.25 Mg Tablet) 0.25 mg PO TID [facility] Last Admin: 11/28/22 10:48 Dose: 0.25 mg Psyllium Hydrophilic Mucilloid (Psyllium Seed 3.4 Gm Powd.Pack) 3.4 gm PO DAILY [facility] Last Admin: 11/28/22 10:49 Dose: 3.4 gm Quetiapine Fumarate (Quetiapine Fumarate 25 Mg Tablet) 25 mg PO Q4H PRN PRN Reason: Anxiety Last Admin: 11/24/22 11:08 Dose: 25 mg Quetiapine Fumarate (Quetiapine Fumarate 100 Mg Tablet) 100 mg PO BEDTIME [facility] Last Admin: 11/27/22 20:21 Dose: 100 mg Tamsulosin HCl (Tamsulosin Hcl 0.4 Mg Capsule) 0.4 mg PO DAILY [facility] Last Admin: 11/28/22 10:48 Dose: 0.4 mg Trazodone HCl (Trazodone Hcl 100 Mg Tablet) 200 mg PO BEDTIME [facility] Last Admin: 11/27/22 20:21 Dose: 200 mg Trazodone HCl (Trazodone Hcl 50 Mg Tablet) 50 mg PO BEDTIME PRN PRN Reason: Insomnia Last Admin: 11/24/22 21:24 Dose: 50 mg Venlafaxine HCl (Venlafaxine Hcl Er 75 Mg Cap.Er.24h) 75 mg PO DAILY [facility] Last Admin: 11/28/22 10:47 Dose: 75 mg Vitamin D (Cholecalciferol (Vitamin D3) 10 Mcg Tablet) 10 mcg PO DAILY [facility] Last Admin: 11/28/22 10:47 Dose: 10 mcg Allergies Allergies Allergy/AdvReac Type Severity Reaction Status Date / Time fentanyl [FENTANYL] Allergy Intermediate unknown Verified 04/08/22 07:00 Assessment & Plan Assessment & Plan (1) Cognitive and neurobehavioral dysfunction following brain injury: Status: Acute Code(s): G31.89 - Other specified degenerative diseases of nervous system; F09 - Unspecified mental disorder due to known physiological condition; S06.9X9S - Unspecified intracranial injury with loss of consciousness of unspecified duration, sequela (2) Major depressive disorder, recurrent severe without psychotic features: Status: Acute Code(s): F33.2 - Major depressive disorder, recurrent severe without psychotic features (3) Swallowing dysfunction: Status: Acute Code(s): R13.10 - Dysphagia, unspecified Assessment and Plan: See specific swallowing plan Plan The patient is a 67-year-old male, , 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 At this moment also, he has problems of housing since he will not be able to go back to his regular snf.? The patient has a long history of alcohol use disorder that he was not able to process or work on it.? Plan 1. Continue with the same treatment.? 2. We will work with the social work specialist and DDS for a proper discharge planning.? 3. Continue with recommendations of Wound Care. 4. Increase Seroquel up to 150 mg po qhs. 10/30/22 restart lorazepam 1 hs prn insomnia norterip inc 100 hs level in 50 s monitor ekg 11/01 continue current tx plan 11/02/22- Bedside Swallow eval. s/p choking episode on 11/01. 2021 Increase Lexapro encourage CBT skills need supportive coaching patient increasingly hopeless helpless denies active self-harm check nortriptyline level 11/05/2022 Check nortriptyline level patient on Seroquel nortriptyline Lexapro.? Needs much reassurance and support the has difficulty interacting at times secondary to a hopelessness irritability passive SI.? Patient has having difficulty maintaining his posture in his chair unclear why this is happening for discuss safety issues with nursing will need OT and potentially Pt input? 11/06/2022 Patient depressed and anxious tried to review cognitive behavioral perspectives ways to emotionally manage current situational factors.? Patient has for an extended period of time had great deal of difficulty with any emotional a mental coping strategies.? Will and lorazepam p.r.n. 0.5 mg to help with anxiety trying get clarity from DTS regarding transition to snf setting positive reinforcement for patient's efforts at physical conditioning becomes demoralized easily denies active self-harm 11/07 continue tx. 11/08 no changes, pt had unwitnessed fall and hit head, head CT negative 11/09 no changes 11/10 no changes 11/11 no changes 11/12/22 acute med w/u neg incentive spirometer cont medication cbt skills cont pt/ot 11/12 medical workout came back negative. No changes in current treatment 11/14/2022 Patient depressed withdrawn more fatigued 11/18/21 taper lexapro start effexor lower seroquel sec to fatigue 11/19/21 Seroquel lowered inc venlafax 11/21/21 Pt with swallowing problem motor dysfx lower gabapentin lower nortriptyline lower seroquel 11/22 continue tx. 11/23 continue tx. 11/24/2022 More alert with lowered gabapentin nortriptyline lorazepam lower Lamictal to 150 b.i.d. hope to improve patient's balance motor function and consideration swallowing dysfunction can try and taper down on Seroquel in case this is also a contributing factor 11/25/2022 Patient has been active with OT change to venlafaxine from Lexapro and lowering of nortriptyline seems show some improvement Discharge planning continues 11/26/2022 the patient reports worsening his mood being more depressed and anxious. We will discuss the case with Dr. Haskins. 11/27/2022 no changes on mental status, we will keep on the same treatment Reason for contiued inpatient stay Substantial Risk for: inability to function, rapid decompensation and med/psych decompensation Time Spent With Patient Time: Total time managing care of this patient today __20__ minutes.
--- NOTE | 2022-11-28 13:46 | MHC.CLN ---
NUTRITION ALERTED BY NURSING THAT PATIENT WANTED TO SPEAK ABOUT DIET. WORKING WITH [employer] AND CURRENT DIET CONSISTENCY=NDD2. PATIENT AWARE THAT [employer] MA[employer] IS THE DISCIPLINE THAT CAN MODIFY DIET CONSISTENCY. 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
[2022-11-28] MEDS: polyethylene glycoL 3350 17 GM POWD.PACK PO (15:22)
[2022-11-28 18:00] VITALS: BP 141/78; PULSE 72; RESP 18; TEMP 36.1; O2SAT 97
[2022-11-28] MEDS: traZODone HCL 100 MG TABLET 200 MG PO (20:36)
[2022-11-28] MEDS: Melatonin 3 MG TABLET 9 MG PO (20:37)
[2022-11-28] MEDS: LORazepam 1 MG TABLET PO (20:37)
[2022-11-28] MEDS: QUEtiapine Fumarate 100 MG TABLET PO (20:37)
[2022-11-28] MEDS: Nortriptyline HCl 25 MG CAPSULE 50 MG PO (20:37)
[2022-11-28] MEDS: Latanoprost 0.005 % Ophth Sol 2.5 ML DROPS 1 DROP EYE-BOTH (20:43)
[2022-11-28] MEDS: Milk of Magnesia 30 ML ORAL.SUSP PO (21:13)
[2022-11-29] MEDS: hydrOXYzine HCL 25 MG TABLET PO ×2 (01:00→14:20)
[2022-11-29] MEDS: traZODone HCL 50 MG TABLET PO (01:00)
[2022-11-29 06:00] VITALS: BP 147/71; PULSE 81; RESP 18; TEMP 36.1; O2SAT 98
[2022-11-29] MEDS: Omeprazole 20 MG CAPSULE.DR PO ×2 (06:21→16:28)
[2022-11-29] MEDS: calcium polycarbophiL TABLET 1 TAB PO (08:32)
[2022-11-29] MEDS: Venlafaxine HCl ER 75 MG CAP.ER.24H PO (08:32)
[2022-11-29] MEDS: lisinopriL 20 MG TABLET PO (08:32)
[2022-11-29] MEDS: lamoTRIgine 25 MG TABLET 150 MG PO ×2 (08:32→21:07)
[2022-11-29] MEDS: Pramipexole Di-HCL 0.25 MG TABLET PO ×3 (08:32→21:07)
[2022-11-29] MEDS: Finasteride 5 MG TABLET PO (08:32)
[2022-11-29] MEDS: Tamsulosin HCL 0.4 MG CAPSULE PO (08:33)
[2022-11-29] MEDS: Naltrexone HCl 50 MG TABLET PO (08:33)
[2022-11-29] MEDS: amLODIPine Besylate 5 MG TABLET PO (08:33)
[2022-11-29] MEDS: Gabapentin 300 MG CAPSULE PO ×3 (08:33→21:07)
[2022-11-29] MEDS: Multivitamin TABLET 1 TAB PO (08:33)
[2022-11-29] MEDS: Cholecalciferol (Vitamin D3) 10 MCG TABLET PO (08:33)
[2022-11-29] MEDS: Mineral Oil/Petrolatum,White 106 GM Tube 1 APPL TOPICAL ×2 (10:42→21:17)
[2022-11-29] MEDS: Nystatin Powder 15 GM BOTTLE 1 APPL TOPICAL ×2 (10:42→21:17)
[2022-11-29] MEDS: Lidocaine 5 % Ointment 35 GM 1 APPL TOPICAL ×2 (10:43→21:08)
[2022-11-29] MEDS: polyethylene glycoL 3350 17 GM POWD.PACK PO (14:21)
--- NOTE | 2022-11-29 17:16 | HO.PSYCHPN ---
Subjective Subjective Date of Service: 11/29/22 Reason For Visit: Depression hopelessness irritability Interim History: Met with patient in the day room. He expressed irritability at having a ground diet which he does not like. He said he would discuss it with Dr. Haskins following Thursday. Discussed case with nursing and otherwise no change in presentation Mental Status Exam Mental Status Exam Patient Appearance: Appropriate Patient Orientation: Person Level of Consciousness: Awake Patient Behavior: Guarded, Cooperative, Fatigued and Impulsive Mood Description: Withdrawn, Depressed, Blunted and Sad Affect Description: Constricted and Apprehensive Patient Cognition Impaired: Yes Ability to Follow Directions: Good Speech Pattern: Clear (enough) Hallucinations: None Delusions: Not Present Thought Process: Linear Thought Content: positive for [place] and positive for Goal Oriented Judgement: Fair Judgement and Insight: At times poor in content impulse control reactivity with other clients verbally Diagnostics Vital Signs (24Hr): Vital Signs - 24 hr 11/28/22 18:00 11/29/22 06:00 Temperature 97 F 97 F Pulse Rate 72 81 Respiratory Rate 18 18 Blood Pressure 141/78 H 147/71 H Pulse Oximetry 97 98 Oxygen Delivery Method Room Air Room Air BMI result Body Mass Index 31.6 Labs 11/13/22 07:43 11/12/22 09:32 Imaging Radiology Impressions: ITS Impressions Chest X-Ray 10/20/22 15:45 IMPRESSION: 1. Low lung volumes with bibasilar linear disc atelectasis versus scarring. 2. No airspace consolidation or effusion. Head CT 11/08/22 12:29 IMPRESSION: No acute intracranial hemorrhage or territorial infarction. Stable chronic postoperative changes with gliosis and encephalomalacia in the right frontal and right temporal lobes. Ex vacuo dilatation of the ventricles and diffuse parenchymal volume loss. Right-sided craniotomy changes. Chest X-Ray 11/12/22 10:32 IMPRESSION: Hypoexpanded lungs with bibasilar platelike atelectasis. Brain MRI 11/12/22 13:15 IMPRESSION: 1. No demonstrated acute intracranial abnormalities. 2. Chronic encephalomalacia of the right temporal, right frontal, and left occipital lobes. Small regions of chronic encephalomalacia in the parasagittal aspects of the bilateral parietal lobes. Moderate underlying microangiopathy and generalized cerebral volume loss. Chest X-Ray 11/14/22 15:52 IMPRESSION: Low lung volumes, bibasilar subsegmental atelectasis and slight elevation of the right hemidiaphragm similar to previous exam. Modified Barium Swallow 11/21/22 15:11 IMPRESSION: Laryngeal penetration on several occasions but no laryngeal aspiration. Mild retention of solid food in the valleculae which cleared with subsequent oral administration of water or thin barium. Correlate with speech therapy results. Medications Medications Current Medications Acetaminophen (Acetaminophen 325 Mg Tablet) 650 mg PO Q6H PRN PRN Reason: Headache/Pain Mild Scale (1-3) Last Admin: 11/27/22 20:18 Dose: 650 mg Al Hydroxide/Mg Hydroxide (Magnesium Hydrox/Alum Hydrox 30 Ml Oral.Susp) 30 ml PO Q6H PRN PRN Reason: Heartburn/Nausea Last Admin: 11/22/22 21:39 Dose: 30 ml Albuterol Sulfate (Albuterol Sulfate 90 Mcg 8 Gm Inhaler) 2 puff INHALE Q6H PRN PRN Reason: Wheezing Amlodipine Besylate (Amlodipine Besylate 5 Mg Tablet) 5 mg PO DAILY [facility]; Protocol Last Admin: 11/29/22 08:33 Dose: 5 mg Benzocaine (Throat Lozenge, Medicated Lozenge) 1 lozenge MUCOUS MEM Q2H PRN PRN Reason: Sore Throat Last Admin: 11/12/22 03:08 Dose: 1 lozenge Calcium Polycarbophil (Calcium Polycarbophil Tablet) 1 tab PO DAILY [facility] Last Admin: 11/29/22 08:32 Dose: 1 tab Docusate Sodium (Docusate Sodium 100 Mg Capsule) 100 mg PO DAILY PRN PRN Reason: constipation Last Admin: 11/14/22 21:03 Dose: 100 mg Finasteride (Finasteride 5 Mg Tablet) 5 mg PO DAILY [facility] Last Admin: 11/29/22 08:32 Dose: 5 mg Gabapentin (Gabapentin 300 Mg Capsule) 300 mg PO TID [facility] Last Admin: 11/29/22 14:20 Dose: 300 mg Guaifenesin/Dextromethorphan (Guaifenesin Dm 200/20/10 Ml 10 Ml Syrup) 10 ml PO Q4H PRN PRN Reason: Cough Last Admin: 11/20/22 05:31 Dose: 10 ml Hydroxyzine HCl (Hydroxyzine Hcl 25 Mg Tablet) 25 mg PO Q6H PRN PRN Reason: Anxiety Last Admin: 11/29/22 14:20 Dose: 25 mg Lamotrigine (Lamotrigine 25 Mg Tablet) 150 mg PO BID [facility] Last Admin: 11/29/22 08:32 Dose: 150 mg Latanoprost (Latanoprost 0.005 % Ophth No 2.5 Ml Drops) 1 drop EYE-BOTH BEDTIME [facility] Last Admin: 11/28/22 20:43 Dose: 1 drop Lidocaine (Lidocaine 5 % Ointment 35 Gm) 1 appl TOPICAL QID [facility] Last Admin: 11/29/22 14:20 Dose: Not Given Lisinopril (Lisinopril 20 Mg Tablet) 20 mg PO DAILY [facility]; Protocol Last Admin: 11/29/22 08:32 Dose: 20 mg Lorazepam (Lorazepam 1 Mg Tablet) 1 mg PO BEDTIME [facility] Last Admin: 11/28/22 20:37 Dose: 1 mg Magnesium Hydroxide (Milk Of Magnesia 30 Ml Oral.Susp) 30 ml PO DAILY PRN PRN Reason: Constipation Last Admin: 11/28/22 21:13 Dose: 30 ml Melatonin (Melatonin 3 Mg Tablet) 9 mg PO BEDTIME [facility] Last Admin: 11/28/22 20:37 Dose: 9 mg Multi-Ingred Cream/Lotion/Oil/Oint (Mineral Oil/Petrolatum,White 106 Gm Tube) 1 appl TOPICAL BID [facility]; Protocol Last Admin: 11/29/22 10:42 Dose: 1 appl Multivitamins/Vitamin C (Multivitamin Tablet) 1 tab PO DAILY [facility] Last Admin: 11/29/22 08:33 Dose: 1 tab Naltrexone HCl (Naltrexone Hcl 50 Mg Tablet) 50 mg PO DAILY [facility] Last Admin: 11/29/22 08:33 Dose: 50 mg Nortriptyline HCl (Nortriptyline Hcl 25 Mg Capsule) 50 mg PO BEDTIME [facility] Last Admin: 11/28/22 20:37 Dose: 50 mg Nystatin (Nystatin Powder 15 Gm Bottle) 1 appl TOPICAL BID [facility] Last Admin: 11/29/22 10:42 Dose: 1 appl Omeprazole (Omeprazole 20 Mg Capsule.Dr) 20 mg PO BID@0630,1630 [facility] Last Admin: 11/29/22 16:28 Dose: 20 mg Ondansetron HCl (Ondansetron Odt 4 Mg Tab.Rapdis) 4 mg TRANSLINGU Q6H PRN PRN Reason: Nausea and Vomiting Last Admin: 11/26/22 03:06 Dose: 4 mg Oxybutynin Chloride (Oxybutynin Chloride Er 5 Mg Tab.Er.24) 10 mg PO DAILY [facility] Last Admin: 11/29/22 08:33 Dose: 10 mg Polyethylene Glycol (Polyethylene Glycol 3350 17 Gm Powd.Pack) 17 gm PO DAILY@1600 [facility] Last Admin: 11/29/22 14:21 Dose: 17 gm Pramipexole Dihydrochloride (Pramipexole Di-Hcl 0.25 Mg Tablet) 0.25 mg PO TID [facility] Last Admin: 11/29/22 14:20 Dose: 0.25 mg Psyllium Hydrophilic Mucilloid (Psyllium Seed 3.4 Gm Powd.Pack) 3.4 gm PO DAILY [facility] Last Admin: 11/29/22 08:31 Dose: 3.4 gm Quetiapine Fumarate (Quetiapine Fumarate 25 Mg Tablet) 25 mg PO Q4H PRN PRN Reason: Anxiety Last Admin: 11/24/22 11:08 Dose: 25 mg Quetiapine Fumarate (Quetiapine Fumarate 100 Mg Tablet) 100 mg PO BEDTIME [facility] Last Admin: 11/28/22 20:37 Dose: 100 mg Tamsulosin HCl (Tamsulosin Hcl 0.4 Mg Capsule) 0.4 mg PO DAILY [facility] Last Admin: 11/29/22 08:33 Dose: 0.4 mg Trazodone HCl (Trazodone Hcl 100 Mg Tablet) 200 mg PO BEDTIME [facility] Last Admin: 11/28/22 20:36 Dose: 200 mg Trazodone HCl (Trazodone Hcl 50 Mg Tablet) 50 mg PO BEDTIME PRN PRN Reason: Insomnia Last Admin: 11/29/22 01:00 Dose: 50 mg Venlafaxine HCl (Venlafaxine Hcl Er 75 Mg Cap.Er.24h) 75 mg PO DAILY [facility] Last Admin: 11/29/22 08:32 Dose: 75 mg Vitamin D (Cholecalciferol (Vitamin D3) 10 Mcg Tablet) 10 mcg PO DAILY [facility] Last Admin: 11/29/22 08:33 Dose: 10 mcg Allergies Allergies Allergy/AdvReac Type Severity Reaction Status Date / Time fentanyl [FENTANYL] Allergy Intermediate unknown Verified 04/08/22 07:00 Assessment & Plan Assessment & Plan (1) Cognitive and neurobehavioral dysfunction following brain injury: Status: Acute Code(s): G31.89 - Other specified degenerative diseases of nervous system; F09 - Unspecified mental disorder due to known physiological condition; S06.9X9S - Unspecified intracranial injury with loss of consciousness of unspecified duration, sequela (2) Major depressive disorder, recurrent severe without psychotic features: Status: Acute Code(s): F33.2 - Major depressive disorder, recurrent severe without psychotic features (3) Swallowing dysfunction: Status: Acute Code(s): R13.10 - Dysphagia, unspecified Assessment and Plan: See specific swallowing plan Plan The patient is a 67-year-old male, , 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 At this moment also, he has problems of housing since he will not be able to go back to his regular nursing home.? The patient has a long history of alcohol use disorder that he was not able to process or work on it.? Plan 1. Continue with the same treatment.? 2. We will work with the social organization professor and DDS for a proper discharge planning.? 3. Continue with recommendations of Wound Care. 4. Increase Seroquel up to 150 mg po qhs. 10/30/22 restart lorazepam 1 hs prn insomnia norterip inc 100 hs level in 50 s monitor ekg 11/01 continue current tx plan 11/02/22- Bedside Swallow eval. s/p choking episode on 11/01. 2021 Increase Lexapro encourage CBT skills need supportive coaching patient increasingly hopeless helpless denies active self-harm check nortriptyline level 11/05/2022 Check nortriptyline level patient on Seroquel nortriptyline Lexapro.? Needs much reassurance and support the has difficulty interacting at times secondary to a hopelessness irritability passive SI.? Patient has having difficulty maintaining his posture in his chair unclear why this is happening for discuss safety issues with nursing will need OT and potentially Pt input? 11/06/2022 Patient depressed and anxious tried to review cognitive behavioral perspectives ways to emotionally manage current situational factors.? Patient has for an extended period of time had great deal of difficulty with any emotional a mental coping strategies.? Will and lorazepam p.r.n. 0.5 mg to help with anxiety trying get clarity from DTS regarding transition to nursing home setting positive reinforcement for patient's efforts at physical conditioning becomes demoralized easily denies active self-harm 11/07 continue tx. 11/08 no changes, pt had unwitnessed fall and hit head, head CT negative 11/09 no changes 11/10 no changes 11/11 no changes 11/12/22 acute med w/u neg incentive spirometer cont medication cbt skills cont pt/ot 11/12 medical workout came back negative. No changes in current treatment 11/14/2022 Patient depressed withdrawn more fatigued 11/18/21 taper lexapro start effexor lower seroquel sec to fatigue 11/19/21 Seroquel lowered inc venlafax 11/21/21 Pt with swallowing problem motor dysfx lower gabapentin lower nortriptyline lower seroquel 11/22 continue tx. 11/23 continue tx. 11/24/2022 More alert with lowered gabapentin nortriptyline lorazepam lower Lamictal to 150 b.i.d. hope to improve patient's balance motor function and consideration swallowing dysfunction can try and taper down on Seroquel in case this is also a contributing factor 11/25/2022 Patient has been active with OT change to venlafaxine from Lexapro and lowering of nortriptyline seems show some improvement Discharge planning continues 11/26/2022 the patient reports worsening his mood being more depressed and anxious. We will discuss the case with Dr. Haskins. 11/27/2022 no changes on mental status, we will keep on the same treatment 11/29 continue current treatment plan Reason for contiued inpatient stay Substantial Risk for: rapid decompensation Time Spent With Patient Time: Total time managing care of this patient today ____ minutes.
[2022-11-29 18:00] VITALS: BP 125/71; PULSE 63; RESP 18; TEMP 36.2; O2SAT 97
[2022-11-29] MEDS: Melatonin 3 MG TABLET 9 MG PO (21:06)
[2022-11-29] MEDS: LORazepam 1 MG TABLET PO (21:07)
[2022-11-29] MEDS: traZODone HCL 100 MG TABLET 200 MG PO (21:07)
[2022-11-29] MEDS: QUEtiapine Fumarate 100 MG TABLET PO (21:07)
[2022-11-29] MEDS: Nortriptyline HCl 25 MG CAPSULE 50 MG PO (21:07)
[2022-11-29] MEDS: Latanoprost 0.005 % Ophth Sol 2.5 ML DROPS 1 DROP EYE-BOTH (21:08)
[2022-11-30] MEDS: Omeprazole 20 MG CAPSULE.DR PO ×2 (05:46→16:09)
[2022-11-30 06:00] VITALS: BP 122/68; PULSE 105; RESP 18; TEMP 36.1; O2SAT 95
[2022-11-30] MEDS: calcium polycarbophiL TABLET 1 TAB PO (09:03)
[2022-11-30] MEDS: Multivitamin TABLET 1 TAB PO (09:03)
[2022-11-30] MEDS: Pramipexole Di-HCL 0.25 MG TABLET PO ×3 (09:03→21:11)
[2022-11-30] MEDS: lisinopriL 20 MG TABLET PO (09:03)
[2022-11-30] MEDS: Cholecalciferol (Vitamin D3) 10 MCG TABLET PO (09:03)
[2022-11-30] MEDS: Tamsulosin HCL 0.4 MG CAPSULE PO (09:03)
[2022-11-30] MEDS: amLODIPine Besylate 5 MG TABLET PO (09:03)
[2022-11-30] MEDS: Venlafaxine HCl ER 75 MG CAP.ER.24H PO (09:03)
[2022-11-30] MEDS: Gabapentin 300 MG CAPSULE PO ×3 (09:03→21:09)
[2022-11-30] MEDS: Naltrexone HCl 50 MG TABLET PO (09:03)
[2022-11-30] MEDS: lamoTRIgine 25 MG TABLET 150 MG PO ×2 (09:03→21:08)
[2022-11-30] MEDS: Finasteride 5 MG TABLET PO (09:03)
[2022-11-30] MEDS: Mineral Oil/Petrolatum,White 106 GM Tube 1 APPL TOPICAL ×2 (09:04→21:21)
[2022-11-30] MEDS: Nystatin Powder 15 GM BOTTLE 1 APPL TOPICAL ×2 (09:04→21:20)
[2022-11-30] MEDS: Lidocaine 5 % Ointment 35 GM 1 APPL TOPICAL ×2 (09:04→21:20)
--- NOTE | 2022-11-30 15:48 | HO.PSYCHPN ---
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 He told the same to staff and that staff better keep him quiet. Glass Bender discussed this with him and he said he has not used to having a roommate. He said however as long staff does not require him to babysit this peer, he will be fine with it. Mental Status Exam Mental Status Exam Patient Appearance: Appropriate Patient Orientation: Person, Place and Situation Level of Consciousness: Awake Patient Behavior: Cooperative and Impulsive Behavior Comments: intermittently irritable, belligerent Mood Description: Withdrawn and Blunted Affect Description: Constricted Patient Cognition Impaired: Yes Ability to Follow Directions: Good Speech Pattern: Clear (enough) Hallucinations: None Delusions: Not Present Thought Process: Linear Thought Content: positive for [place], positive for [place]um[place] and positive for Goal Oriented Judgement: Fair Judgement and Insight: At times poor in content impulse control reactivity with other clients verbally Diagnostics Vital Signs (24Hr): Vital Signs - 24 hr 11/29/22 18:00 11/30/22 06:00 Temperature 97.2 F 97.0 F Pulse Rate 63 105 H Respiratory Rate 18 18 Blood Pressure 125/71 122/68 Pulse Oximetry 97 95 Oxygen Delivery Method Room Air Room Air BMI result Body Mass Index 31.6 Labs 11/13/22 07:43 11/12/22 09:32 Imaging Radiology Impressions: ITS Impressions Chest X-Ray 10/20/22 15:45 IMPRESSION: 1. Low lung volumes with bibasilar linear disc atelectasis versus scarring. 2. No airspace consolidation or effusion. Head CT 11/08/22 12:29 IMPRESSION: No acute intracranial hemorrhage or territorial infarction. Stable chronic postoperative changes with gliosis and encephalomalacia in the right frontal and right temporal lobes. Ex vacuo dilatation of the ventricles and diffuse parenchymal volume loss. Right-sided craniotomy changes. Chest X-Ray 11/12/22 10:32 IMPRESSION: Hypoexpanded lungs with bibasilar platelike atelectasis. Brain MRI 11/12/22 13:15 IMPRESSION: 1. No demonstrated acute intracranial abnormalities. 2. Chronic encephalomalacia of the right temporal, right frontal, and left occipital lobes. Small regions of chronic encephalomalacia in the parasagittal aspects of the bilateral parietal lobes. Moderate underlying microangiopathy and generalized cerebral volume loss. Chest X-Ray 11/14/22 15:52 IMPRESSION: Low lung volumes, bibasilar subsegmental atelectasis and slight elevation of the right hemidiaphragm similar to previous exam. Modified Barium Swallow 11/21/22 15:11 IMPRESSION: Laryngeal penetration on several occasions but no laryngeal aspiration. Mild retention of solid food in the valleculae which cleared with subsequent oral administration of water or thin barium. Correlate with speech therapy results. Medications Medications Current Medications Acetaminophen (Acetaminophen 325 Mg Tablet) 650 mg PO Q6H PRN PRN Reason: Headache/Pain Mild Scale (1-3) Last Admin: 11/27/22 20:18 Dose: 650 mg Al Hydroxide/Mg Hydroxide (Magnesium Hydrox/Alum Hydrox 30 Ml Oral.Susp) 30 ml PO Q6H PRN PRN Reason: Heartburn/Nausea Last Admin: 11/22/22 21:39 Dose: 30 ml Albuterol Sulfate (Albuterol Sulfate 90 Mcg 8 Gm Inhaler) 2 puff INHALE Q6H PRN PRN Reason: Wheezing Amlodipine Besylate (Amlodipine Besylate 5 Mg Tablet) 5 mg PO DAILY [facility]; Protocol Last Admin: 11/30/22 09:03 Dose: 5 mg Benzocaine (Throat Lozenge, Medicated Lozenge) 1 lozenge MUCOUS MEM Q2H PRN PRN Reason: Sore Throat Last Admin: 11/12/22 03:08 Dose: 1 lozenge Calcium Polycarbophil (Calcium Polycarbophil Tablet) 1 tab PO DAILY [facility] Last Admin: 11/30/22 09:03 Dose: 1 tab Docusate Sodium (Docusate Sodium 100 Mg Capsule) 100 mg PO DAILY PRN PRN Reason: constipation Last Admin: 11/14/22 21:03 Dose: 100 mg Finasteride (Finasteride 5 Mg Tablet) 5 mg PO DAILY [facility] Last Admin: 11/30/22 09:03 Dose: 5 mg Gabapentin (Gabapentin 300 Mg Capsule) 300 mg PO TID TAZ Last Admin: 11/30/22 09:03 Dose: 300 mg Guaifenesin/Dextromethorphan (Guaifenesin Dm 200/20/10 Ml 10 Ml Syrup) 10 ml PO Q4H PRN PRN Reason: Cough Last Admin: 11/20/22 05:31 Dose: 10 ml Hydroxyzine HCl (Hydroxyzine Hcl 25 Mg Tablet) 25 mg PO Q6H PRN PRN Reason: Anxiety Last Admin: 11/29/22 14:20 Dose: 25 mg Lamotrigine (Lamotrigine 25 Mg Tablet) 150 mg PO BID [facility] Last Admin: 11/30/22 09:03 Dose: 150 mg Latanoprost (Latanoprost 0.005 % Ophth No 2.5 Ml Drops) 1 drop EYE-BOTH BEDTIME [facility] Last Admin: 11/29/22 21:08 Dose: 1 drop Lidocaine (Lidocaine 5 % Ointment 35 Gm) 1 appl TOPICAL QID [facility] Last Admin: 11/30/22 14:35 Dose: Not Given Lisinopril (Lisinopril 20 Mg Tablet) 20 mg PO DAILY [facility]; Protocol Last Admin: 11/30/22 09:03 Dose: 20 mg Lorazepam (Lorazepam 1 Mg Tablet) 1 mg PO BEDTIME [facility] Last Admin: 11/29/22 21:07 Dose: 1 mg Magnesium Hydroxide (Milk Of Magnesia 30 Ml Oral.Susp) 30 ml PO DAILY PRN PRN Reason: Constipation Last Admin: 11/28/22 21:13 Dose: 30 ml Melatonin (Melatonin 3 Mg Tablet) 9 mg PO BEDTIME [facility] Last Admin: 11/29/22 21:06 Dose: 9 mg Multi-Ingred Cream/Lotion/Oil/Oint (Mineral Oil/Petrolatum,White 106 Gm Tube) 1 appl TOPICAL BID [facility]; Protocol Last Admin: 11/30/22 09:04 Dose: 1 appl Multivitamins/Vitamin C (Multivitamin Tablet) 1 tab PO DAILY [facility] Last Admin: 11/30/22 09:03 Dose: 1 tab Naltrexone HCl (Naltrexone Hcl 50 Mg Tablet) 50 mg PO DAILY [facility] Last Admin: 11/30/22 09:03 Dose: 50 mg Nortriptyline HCl (Nortriptyline Hcl 25 Mg Capsule) 50 mg PO BEDTIME [facility] Last Admin: 11/29/22 21:07 Dose: 50 mg Nystatin (Nystatin Powder 15 Gm Bottle) 1 appl TOPICAL BID [facility] Last Admin: 11/30/22 09:04 Dose: 1 appl Omeprazole (Omeprazole 20 Mg Capsule.Dr) 20 mg PO BID@0630,1630 [facility] Last Admin: 11/30/22 05:46 Dose: 20 mg Ondansetron HCl (Ondansetron Odt 4 Mg Tab.Rapdis) 4 mg TRANSLINGU Q6H PRN PRN Reason: Nausea and Vomiting Last Admin: 11/26/22 03:06 Dose: 4 mg Oxybutynin Chloride (Oxybutynin Chloride Er 5 Mg Tab.Er.24) 10 mg PO DAILY [facility] Last Admin: 11/30/22 09:03 Dose: 10 mg Polyethylene Glycol (Polyethylene Glycol 3350 17 Gm Powd.Pack) 17 gm PO DAILY@1600 [facility] Last Admin: 11/29/22 14:21 Dose: 17 gm Pramipexole Dihydrochloride (Pramipexole Di-Hcl 0.25 Mg Tablet) 0.25 mg PO TID [facility] Last Admin: 11/30/22 09:03 Dose: 0.25 mg Psyllium Hydrophilic Mucilloid (Psyllium Seed 3.4 Gm Powd.Pack) 3.4 gm PO DAILY [facility] Last Admin: 11/30/22 09:03 Dose: 3.4 gm Quetiapine Fumarate (Quetiapine Fumarate 25 Mg Tablet) 25 mg PO Q4H PRN PRN Reason: Anxiety Last Admin: 11/24/22 11:08 Dose: 25 mg Quetiapine Fumarate (Quetiapine Fumarate 100 Mg Tablet) 100 mg PO BEDTIME [facility] Last Admin: 11/29/22 21:07 Dose: 100 mg Tamsulosin HCl (Tamsulosin Hcl 0.4 Mg Capsule) 0.4 mg PO DAILY [facility] Last Admin: 11/30/22 09:03 Dose: 0.4 mg Trazodone HCl (Trazodone Hcl 100 Mg Tablet) 200 mg PO BEDTIME [facility] Last Admin: 11/29/22 21:07 Dose: 200 mg Trazodone HCl (Trazodone Hcl 50 Mg Tablet) 50 mg PO BEDTIME PRN PRN Reason: Insomnia Last Admin: 11/29/22 01:00 Dose: 50 mg Venlafaxine HCl (Venlafaxine Hcl Er 75 Mg Cap.Er.24h) 75 mg PO DAILY [facility] Last Admin: 11/30/22 09:03 Dose: 75 mg Vitamin D (Cholecalciferol (Vitamin D3) 10 Mcg Tablet) 10 mcg PO DAILY [facility] Last Admin: 11/30/22 09:03 Dose: 10 mcg Allergies Allergies Allergy/AdvReac Type Severity Reaction Status Date / Time fentanyl [FENTANYL] Allergy Intermediate unknown Verified 04/08/22 07:00 Assessment & Plan Assessment & Plan (1) Cognitive and neurobehavioral dysfunction following brain injury: Status: Acute Code(s): G31.89 - Other specified degenerative diseases of nervous system; F09 - Unspecified mental disorder due to known physiological condition; S06.9X9S - Unspecified intracranial injury with loss of consciousness of unspecified duration, sequela (2) Major depressive disorder, recurrent severe without psychotic features: Status: Acute Code(s): F33.2 - Major depressive disorder, recurrent severe without psychotic features (3) Swallowing dysfunction: Status: Acute Code(s): R13.10 - Dysphagia, unspecified Assessment and Plan: See specific swallowing plan Plan The patient is a 67-year-old male, , 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 At this moment also, he has problems of housing since he will not be able to go back to his regular shelter.? The patient has a long history of alcohol use disorder that he was not able to process or work on it.? Plan 1. Continue with the same treatment.? 2. We will work with the foster care social worker and DDS for a proper discharge planning.? 3. Continue with recommendations of Wound Care. 4. Increase Seroquel up to 150 mg po qhs. 10/30/22 restart lorazepam 1 hs prn insomnia norterip inc 100 hs level in 50 s monitor ekg 11/01 continue current tx plan 11/02/22- Bedside Swallow eval. s/p choking episode on 11/01. 2021 Increase Lexapro encourage CBT skills need supportive coaching patient increasingly hopeless helpless denies active self-harm check nortriptyline level 11/05/2022 Check nortriptyline level patient on Seroquel nortriptyline Lexapro.? Needs much reassurance and support the has difficulty interacting at times secondary to a hopelessness irritability passive SI.? Patient has having difficulty maintaining his posture in his chair unclear why this is happening for discuss safety issues with nursing will need OT and potentially Pt input? 11/06/2022 Patient depressed and anxious tried to review cognitive behavioral perspectives ways to emotionally manage current situational factors.? Patient has for an extended period of time had great deal of difficulty with any emotional a mental coping strategies.? Will and lorazepam p.r.n. 0.5 mg to help with anxiety trying get clarity from DTS regarding transition to shelter setting positive reinforcement for patient's efforts at physical conditioning becomes demoralized easily denies active self-harm 11/07 continue tx. 11/08 no changes, pt had unwitnessed fall and hit head, head CT negative 11/09 no changes 11/10 no changes 11/11 no changes 11/12/22 acute med w/u neg incentive spirometer cont medication cbt skills cont pt/ot 11/12 medical workout came back negative. No changes in current treatment 11/14/2022 Patient depressed withdrawn more fatigued 11/18/21 taper lexapro start effexor lower seroquel sec to fatigue 11/19/21 Seroquel lowered inc venlafax 11/21/21 Pt with swallowing problem motor dysfx lower gabapentin lower nortriptyline lower seroquel 11/22 continue tx. 11/23 continue tx. 11/24/2022 More alert with lowered gabapentin nortriptyline lorazepam lower Lamictal to 150 b.i.d. hope to improve patient's balance motor function and consideration swallowing dysfunction can try and taper down on Seroquel in case this is also a contributing factor 11/25/2022 Patient has been active with OT change to venlafaxine from Lexapro and lowering of nortriptyline seems show some improvement Discharge planning continues 11/26/2022 the patient reports worsening his mood being more depressed and anxious. We will discuss the case with Dr. Haskins. 11/27/2022 no changes on mental status, we will keep on the same treatment 11/29 continue current treatment plan 11/30 continue current treatment plan Patient educated on: therapeutic strategies Informed Consent: understands Reason for contiued inpatient stay Substantial Risk for: rapid decompensation Time Spent With Patient Time: Total time managing care of this patient today ____ minutes.
[2022-11-30] MEDS: polyethylene glycoL 3350 17 GM POWD.PACK PO (16:09)
[2022-11-30] MEDS: Acetaminophen 325 MG TABLET 650 MG PO (16:17)
[2022-11-30] MEDS: hydrOXYzine HCL 25 MG TABLET PO (16:18)
[2022-11-30 18:00] VITALS: BP 147/69; PULSE 89; RESP 16; TEMP 36.4; O2SAT 96
--- NOTE | 2022-11-30 18:40 | PC.NURSE ---
On first approach, pt became agitated about being assisted with his snack. During a subsequent conversation, pt held a pleasant conversation that ranged from discussion of his family, his education, his history of playing sports, and his prior career. He showed some insight, saying he tends to have high expectations of others, which he has been reminded of by friends in the past. During the conversation, he asked, ?Am I keeping you??, showing courtesy toward tw. Pt asked what it means when staff talk about having to do documentation, and understanding of end to conversation.
[2022-11-30] MEDS: Nortriptyline HCl 25 MG CAPSULE 50 MG PO (21:09)
[2022-11-30] MEDS: Melatonin 3 MG TABLET 9 MG PO (21:09)
[2022-11-30] MEDS: traZODone HCL 100 MG TABLET 200 MG PO (21:09)
[2022-11-30] MEDS: LORazepam 1 MG TABLET PO (21:10)
[2022-11-30] MEDS: QUEtiapine Fumarate 100 MG TABLET PO (21:10)
[2022-11-30] MEDS: Latanoprost 0.005 % Ophth Sol 2.5 ML DROPS 1 DROP EYE-BOTH (21:20)
[2022-12-01 06:00] VITALS: BP 118/66; PULSE 78; RESP 18; TEMP 36.1; O2SAT 99
[2022-12-01] MEDS: Omeprazole 20 MG CAPSULE.DR PO ×2 (06:02→17:36)
[2022-12-01] MEDS: Venlafaxine HCl ER 75 MG CAP.ER.24H PO (08:20)
[2022-12-01] MEDS: Multivitamin TABLET 1 TAB PO (08:21)
[2022-12-01] MEDS: Finasteride 5 MG TABLET PO (08:21)
[2022-12-01] MEDS: amLODIPine Besylate 5 MG TABLET PO (08:21)
[2022-12-01] MEDS: calcium polycarbophiL TABLET 1 TAB PO (08:21)
[2022-12-01] MEDS: Tamsulosin HCL 0.4 MG CAPSULE PO (08:21)
[2022-12-01] MEDS: Gabapentin 300 MG CAPSULE PO ×3 (08:21→20:28)
[2022-12-01] MEDS: Pramipexole Di-HCL 0.25 MG TABLET PO ×2 (08:21→13:55)
[2022-12-01] MEDS: lamoTRIgine 25 MG TABLET 150 MG PO ×2 (08:22→20:27)
[2022-12-01] MEDS: lisinopriL 20 MG TABLET PO (08:22)
[2022-12-01] MEDS: Naltrexone HCl 50 MG TABLET PO (08:25)
[2022-12-01] MEDS: Cholecalciferol (Vitamin D3) 10 MCG TABLET PO (08:25)
[2022-12-01] MEDS: Lidocaine 5 % Ointment 35 GM 1 APPL TOPICAL ×2 (09:22→20:28)
[2022-12-01] MEDS: QUEtiapine Fumarate 25 MG TABLET PO (13:55)
--- NOTE | 2022-12-01 13:59 | PC.NURSE ---
pt sitting outside nurses station. states has been suicidal for years. states anxiety 08/25 depression 06/25 medicated. pt refused incentive spirometer 2 feeling tired and suicidal
--- NOTE | 2022-12-01 14:37 | HO.PSYCHPN ---
Subjective Subjective Date of Service: 12/01/22 Reason For Visit: Depression hopelessness irritability Subjective Notes: Conditional Voluntary Interim History: The patient is seen case reviewed with nursing staff. The patient of was recently having difficulty with another patient and yelled racial slur which was quite problematic. Patient has been more depressed some of this appears to be over swallowing difficulties and pureed diet intermittently hopeless helpless with ultimate thoughts that he might be better off at times at other times more future focused Mental Status Exam Mental Status Exam Patient Appearance: Appropriate Patient Orientation: Person Level of Consciousness: Awake Patient Behavior: Guarded, Cooperative, Fatigued and Impulsive Mood Description: Withdrawn, Depressed, Blunted and Sad Affect Description: Constricted and Apprehensive Patient Cognition Impaired: Yes Ability to Follow Directions: Good Speech Pattern: Clear Hallucinations: None Delusions: Not Present Thought Process: Linear Thought Content: positive for [place] and positive for Circumstantial Depressive Symptoms: Increased Anxiety, Loss of Int. in Activity and Difficulty Concentrating Judgement: Fair Judgement and Insight: At times poor in content impulse control reactivity with other clients verbally Diagnostics Vital Signs (24Hr): Vital Signs - 24 hr 11/30/22 18:00 12/01/22 06:00 Temperature 97.6 F 96.9 F Pulse Rate 89 78 Respiratory Rate 16 18 Blood Pressure 147/69 H 118/66 Pulse Oximetry 96 99 Oxygen Delivery Method Room Air Room Air BMI result Body Mass Index 31.6 Labs 11/13/22 07:43 11/12/22 09:32 Imaging Radiology Impressions: ITS Impressions Chest X-Ray 10/20/22 15:45 IMPRESSION: 1. Low lung volumes with bibasilar linear disc atelectasis versus scarring. 2. No airspace consolidation or effusion. Head CT 11/08/22 12:29 IMPRESSION: No acute intracranial hemorrhage or territorial infarction. Stable chronic postoperative changes with gliosis and encephalomalacia in the right frontal and right temporal lobes. Ex vacuo dilatation of the ventricles and diffuse parenchymal volume loss. Right-sided craniotomy changes. Chest X-Ray 11/12/22 10:32 IMPRESSION: Hypoexpanded lungs with bibasilar platelike atelectasis. Brain MRI 11/12/22 13:15 IMPRESSION: 1. No demonstrated acute intracranial abnormalities. 2. Chronic encephalomalacia of the right temporal, right frontal, and left occipital lobes. Small regions of chronic encephalomalacia in the parasagittal aspects of the bilateral parietal lobes. Moderate underlying microangiopathy and generalized cerebral volume loss. Chest X-Ray 11/14/22 15:52 IMPRESSION: Low lung volumes, bibasilar subsegmental atelectasis and slight elevation of the right hemidiaphragm similar to previous exam. Modified Barium Swallow 11/21/22 15:11 IMPRESSION: Laryngeal penetration on several occasions but no laryngeal aspiration. Mild retention of solid food in the valleculae which cleared with subsequent oral administration of water or thin barium. Correlate with speech therapy results. Medications Medications Current Medications Acetaminophen (Acetaminophen 325 Mg Tablet) 650 mg PO Q6H PRN PRN Reason: Headache/Pain Mild Scale (1-3) Last Admin: 11/30/22 16:17 Dose: 650 mg Al Hydroxide/Mg Hydroxide (Magnesium Hydrox/Alum Hydrox 30 Ml Oral.Susp) 30 ml PO Q6H PRN PRN Reason: Heartburn/Nausea Last Admin: 11/22/22 21:39 Dose: 30 ml Albuterol Sulfate (Albuterol Sulfate 90 Mcg 8 Gm Inhaler) 2 puff INHALE Q6H PRN PRN Reason: Wheezing Amlodipine Besylate (Amlodipine Besylate 5 Mg Tablet) 5 mg PO DAILY [facility]; Protocol Last Admin: 12/01/22 08:21 Dose: 5 mg Benzocaine (Throat Lozenge, Medicated Lozenge) 1 lozenge MUCOUS MEM Q2H PRN PRN Reason: Sore Throat Last Admin: 11/12/22 03:08 Dose: 1 lozenge Calcium Polycarbophil (Calcium Polycarbophil Tablet) 1 tab PO DAILY [facility] Last Admin: 12/01/22 08:21 Dose: 1 tab Docusate Sodium (Docusate Sodium 100 Mg Capsule) 100 mg PO DAILY PRN PRN Reason: constipation Last Admin: 11/14/22 21:03 Dose: 100 mg Finasteride (Finasteride 5 Mg Tablet) 5 mg PO DAILY [facility] Last Admin: 12/01/22 08:21 Dose: 5 mg Gabapentin (Gabapentin 300 Mg Capsule) 300 mg PO TID [facility] Last Admin: 12/01/22 13:55 Dose: 300 mg Guaifenesin/Dextromethorphan (Guaifenesin Dm 200/20/10 Ml 10 Ml Syrup) 10 ml PO Q4H PRN PRN Reason: Cough Last Admin: 11/20/22 05:31 Dose: 10 ml Hydroxyzine HCl (Hydroxyzine Hcl 25 Mg Tablet) 25 mg PO Q6H PRN PRN Reason: Anxiety Last Admin: 11/30/22 16:18 Dose: 25 mg Lamotrigine (Lamotrigine 25 Mg Tablet) 150 mg PO BID [facility] Last Admin: 12/01/22 08:22 Dose: 150 mg Latanoprost (Latanoprost 0.005 % Ophth No 2.5 Ml Drops) 1 drop EYE-BOTH BEDTIME [facility] Last Admin: 11/30/22 21:20 Dose: 1 drop Lidocaine (Lidocaine 5 % Ointment 35 Gm) 1 appl TOPICAL QID [facility] Last Admin: 12/01/22 13:58 Dose: Not Given Lisinopril (Lisinopril 20 Mg Tablet) 20 mg PO DAILY [facility]; Protocol Last Admin: 12/01/22 08:22 Dose: 20 mg Lorazepam (Lorazepam 1 Mg Tablet) 1 mg PO BEDTIME [facility] Last Admin: 11/30/22 21:10 Dose: 1 mg Magnesium Hydroxide (Milk Of Magnesia 30 Ml Oral.Susp) 30 ml PO DAILY PRN PRN Reason: Constipation Last Admin: 11/28/22 21:13 Dose: 30 ml Melatonin (Melatonin 3 Mg Tablet) 9 mg PO BEDTIME [facility] Last Admin: 11/30/22 21:09 Dose: 9 mg Multi-Ingred Cream/Lotion/Oil/Oint (Mineral Oil/Petrolatum,White 106 Gm Tube) 1 appl TOPICAL BID [facility]; Protocol Last Admin: 12/01/22 13:18 Dose: Not Given Multivitamins/Vitamin C (Multivitamin Tablet) 1 tab PO DAILY [facility] Last Admin: 12/01/22 08:21 Dose: 1 tab Naltrexone HCl (Naltrexone Hcl 50 Mg Tablet) 50 mg PO DAILY [facility] Last Admin: 12/01/22 08:25 Dose: 50 mg Nortriptyline HCl (Nortriptyline Hcl 25 Mg Capsule) 50 mg PO BEDTIME [facility] Last Admin: 11/30/22 21:09 Dose: 50 mg Nystatin (Nystatin Powder 15 Gm Bottle) 1 appl TOPICAL BID [facility] Last Admin: 12/01/22 13:18 Dose: Not Given Omeprazole (Omeprazole 20 Mg Capsule.Dr) 20 mg PO BID@0630,1630 [facility] Last Admin: 12/01/22 06:02 Dose: 20 mg Ondansetron HCl (Ondansetron Odt 4 Mg Tab.Rapdis) 4 mg TRANSLINGU Q6H PRN PRN Reason: Nausea and Vomiting Last Admin: 11/26/22 03:06 Dose: 4 mg Oxybutynin Chloride (Oxybutynin Chloride Er 5 Mg Tab.Er.24) 10 mg PO DAILY [facility] Last Admin: 12/01/22 08:24 Dose: 10 mg Polyethylene Glycol (Polyethylene Glycol 3350 17 Gm Powd.Pack) 17 gm PO DAILY@1600 [facility] Last Admin: 11/30/22 16:09 Dose: 17 gm Pramipexole Dihydrochloride (Pramipexole Di-Hcl 0.25 Mg Tablet) 0.25 mg PO TID [facility] Last Admin: 12/01/22 13:55 Dose: 0.25 mg Psyllium Hydrophilic Mucilloid (Psyllium Seed 3.4 Gm Powd.Pack) 3.4 gm PO DAILY [facility] Last Admin: 12/01/22 08:20 Dose: 3.4 gm Quetiapine Fumarate (Quetiapine Fumarate 25 Mg Tablet) 25 mg PO Q4H PRN PRN Reason: Anxiety Last Admin: 12/01/22 13:55 Dose: 25 mg Quetiapine Fumarate (Quetiapine Fumarate 100 Mg Tablet) 100 mg PO BEDTIME [facility] Last Admin: 11/30/22 21:10 Dose: 100 mg Tamsulosin HCl (Tamsulosin Hcl 0.4 Mg Capsule) 0.4 mg PO DAILY [facility] Last Admin: 12/01/22 08:21 Dose: 0.4 mg Trazodone HCl (Trazodone Hcl 100 Mg Tablet) 200 mg PO BEDTIME [facility] Last Admin: 11/30/22 21:09 Dose: 200 mg Trazodone HCl (Trazodone Hcl 50 Mg Tablet) 50 mg PO BEDTIME PRN PRN Reason: Insomnia Last Admin: 11/29/22 01:00 Dose: 50 mg Venlafaxine HCl (Venlafaxine Hcl Er 75 Mg Cap.Er.24h) 75 mg PO DAILY [facility] Last Admin: 12/01/22 08:20 Dose: 75 mg Vitamin D (Cholecalciferol (Vitamin D3) 10 Mcg Tablet) 10 mcg PO DAILY [facility] Last Admin: 12/01/22 08:25 Dose: 10 mcg Allergies Allergies Allergy/AdvReac Type Severity Reaction Status Date / Time fentanyl [FENTANYL] Allergy Intermediate unknown Verified 04/08/22 07:00 Assessment & Plan Assessment & Plan (1) Cognitive and neurobehavioral dysfunction following brain injury: Status: Acute Code(s): G31.89 - Other specified degenerative diseases of nervous system; F09 - Unspecified mental disorder due to known physiological condition; S06.9X9S - Unspecified intracranial injury with loss of consciousness of unspecified duration, sequela (2) Major depressive disorder, recurrent severe without psychotic features: Status: Acute Code(s): F33.2 - Major depressive disorder, recurrent severe without psychotic features (3) Swallowing dysfunction: Status: Acute Code(s): R13.10 - Dysphagia, unspecified Plan Discussed stopping Mirapex and lowering Seroquel in case any of this is contributing to patient's swallowing difficulties and gradual decline increase Effexor to 112.5 mg daily Patient educated on: medication risk/benefits, therapeutic strategies and medical condition Informed Consent: further education needed Reason for contiued inpatient stay Substantial Risk for: harm to self, rapid decompensation and med/psych decompensation Time Spent With Patient Time: Total time managing care of this patient today ____ minutes.
--- NOTE | 2022-12-01 17:16 | MHC.SL.SWA ---
Speech Pathologist Impression: Oropharyngeal dysphagia Risk of Aspiration Due to: Neurological Condition Reduced Cognition Dysphasia Diet Status: No Change Liquid Consistency and Strategies for Safe Swallow: Liquid Intake Recommendation: Thin Liquid Intake Strategies: No Straws Double Swallow Solid Food Consistency: Dietary Recommendations: Grnd/Mech Altered (NDD2) Oral Medication Intake: Crushed with Puree Please contact the pharmacy regarding appropriate crushable or liquid drug formulations that are available whenever modified delivery is recommended. Compensatory Strategies and Precautions to be Taken for Safe Swallow: Sitting Upright (90 deg) Double Swallow No Straw Small Bites and Sips Alternate Liquids/Solids Rate of Ingestion Change Avoid Specific Foods Supervision While Eating and Drinking for Safe Swallow: Total Supervision (1:1) Foods to Avoid: Avoid hard to chew solids, sticky textures, mixed consistencies, and foods that break up into small pieces (rice, popcorn, nuts) Swallowing Recommended Treatments: Compens. Strategy Educat. Recommendation for Speech: Inpatient Speech Therapy MBSS 11/21/22 revealed moderate oropharyngeal phase dysphagia, characterized by slowed and prolonged oral phase, increase in oral and pharyngeal residue with harder solids, and incomplete laryngeal vestibular closure with resultant penetration of thin liquid. Pt was able to reduce pharyngeal retention with multiple dry swallows followed by sips of liquid. No evidence of aspiration during this exam, however, presence of penetration puts pt at risk of aspiration. Recommend modified diet GROUND/MECHANICALLY ALTERED (NDD2) solids with THIN liquids and ASPIRATION PRECAUTIONS: -Continue total 1:1 supervision during PO intake, provide pt w/ cues as needed -Take small bites of food -Moisten food with sauces and gravies, ensuring sauces are mixed and blended in well with food -Chew food well -Avoid hard to chew solids, sticky textures, mixed consistencies, and foods that break up into small pieces (rice, popcorn, nuts) -Follow each bite with 2-3 additional dry swallow to promote pharyngeal clearance -After dry swallows, take sips of liquid to promote pharyngeal clearance -Take small, individual sips of liquid -Avoid taking consecutive sips -Avoid the use of straws -Follow sips with a throat clear then dry swallow -Maintain upright 90 degree position while eating and drinking and for at least 45 minutes afterwards -Ensure a rigorous daily oral care routine before first meal and after each subsequent meal -Crush pills in puree when possible (consult with pharmacy). If pill cannot be crushed, take additional sips of liquid after taking the pill to promote pharyngeal clearance. Take pills one at a time. Recommend continue ST intervention at bedside to provide further education RE: MBSS results, risks of aspiration, dietary textures, and recommended strategies. Recommend pt to continue monitoring his dysphagia. If there are any changes or worsening of symptoms, consult with hospitalist or PCP, at which point a re-evaluation may be indicated. Therapy Recommendations: Therapy will be continued Prognosis for Improvement: The prognosis for the patient to meet nutritional needs by mouth is fair-good based on degree of impairment. Mcc Goals: ? The patient will tolerate the least restrictive diet with a safe/efficient swallow to maintain adequate nutrition and hydration. ? The patient and/or family will participate in further education for swallowing goals. Short Term Goals: ? Diet - The patient will tolerate a mechanical soft diet with thin liquids without signs or symptoms of penetration/aspiration 100% of the time. - The patient will participate in therapeutic PO trials with the [employer]. ? Guidelines - The patient will comply with/recall the following guidelines/strategies 100% of the time with minimal cuing: Bolus Volume Change, Rate of Ingestion Change, Liquid Wash, Additional Swallow(s) per Bolus, Throat Clear, No Straws. ? Education - The patient, nurse will verbalize/demonstrate understanding of the results of this evaluation, the above recommendations, and the swallowing guidelines. Exercise Planner Clinican/Clinical Fellow: No Supervisory Statement: I have reviewed and agree with the student/clinical fellow's documentation: N/A Speech Language Pathologist: Maddy Harris M.A., [facility]-[employer]
[2022-12-01] MEDS: polyethylene glycoL 3350 17 GM POWD.PACK PO (17:36)
[2022-12-01 18:00] VITALS: BP 108/59; PULSE 75; RESP 16; TEMP 36.6; O2SAT 98
[2022-12-01] MEDS: Nortriptyline HCl 25 MG CAPSULE 50 MG PO (20:28)
[2022-12-01] MEDS: LORazepam 1 MG TABLET PO (20:28)
[2022-12-01] MEDS: Latanoprost 0.005 % Ophth Sol 2.5 ML DROPS 1 DROP EYE-BOTH (20:28)
[2022-12-01] MEDS: traZODone HCL 100 MG TABLET 200 MG PO (20:28)
[2022-12-01] MEDS: Melatonin 3 MG TABLET 9 MG PO (20:28)
[2022-12-01] MEDS: Nystatin Powder 15 GM BOTTLE 1 APPL TOPICAL (20:28)
[2022-12-01] MEDS: QUEtiapine Fumarate 50 MG TABLET PO (20:28)
[2022-12-01] MEDS: Mineral Oil/Petrolatum,White 106 GM Tube 1 APPL TOPICAL (20:29)
[2022-12-02] MEDS: Acetaminophen 325 MG TABLET 650 MG PO ×4 (00:48→23:38)
[2022-12-02] MEDS: traZODone HCL 50 MG TABLET PO ×2 (00:48→23:38)
[2022-12-02] MEDS: hydrOXYzine HCL 25 MG TABLET PO ×3 (00:48→23:38)
[2022-12-02] MEDS: Omeprazole 20 MG CAPSULE.DR PO ×2 (05:33→16:33)
[2022-12-02 06:00] VITALS: BP 118/70; PULSE 78; RESP 18; TEMP 36.6; O2SAT 95
[2022-12-02] MEDS: Naltrexone HCl 50 MG TABLET PO (09:05)
[2022-12-02] MEDS: Cholecalciferol (Vitamin D3) 10 MCG TABLET PO (09:05)
[2022-12-02] MEDS: lamoTRIgine 25 MG TABLET 150 MG PO ×2 (09:06→20:40)
[2022-12-02] MEDS: Tamsulosin HCL 0.4 MG CAPSULE PO (09:06)
[2022-12-02] MEDS: Venlafaxine HCl ER 37.5 MG CAP.ER.24H 112.5 MG PO (09:06)
[2022-12-02] MEDS: calcium polycarbophiL TABLET 1 TAB PO (09:06)
[2022-12-02] MEDS: Gabapentin 300 MG CAPSULE PO ×3 (09:06→20:41)
[2022-12-02] MEDS: Finasteride 5 MG TABLET PO (09:06)
[2022-12-02] MEDS: QUEtiapine Fumarate 25 MG TABLET PO (09:06)
[2022-12-02] MEDS: Multivitamin TABLET 1 TAB PO (09:07)
[2022-12-02] MEDS: Lidocaine 5 % Ointment 35 GM 1 APPL TOPICAL ×2 (10:13→22:00)
[2022-12-02] MEDS: Nystatin Powder 15 GM BOTTLE 1 APPL TOPICAL (10:13)
[2022-12-02] MEDS: Mineral Oil/Petrolatum,White 106 GM Tube 1 APPL TOPICAL (10:13)
[2022-12-02] MEDS: amLODIPine Besylate 5 MG TABLET PO (10:38)
[2022-12-02] MEDS: lisinopriL 20 MG TABLET PO (10:38)
--- NOTE | 2022-12-02 15:25 | MHC.SL.SWA ---
Speech Pathologist Impression: Risk of Aspiration Due to: Neurological Condition Reduced Cognition Dysphasia Diet Status: Recommend UPGRADE diet to Chopped/Advanced (NDD3) with THIN liquids, pills whole with liquid or puree as preferred by patient (patient does not like pills crushed in puree). See full [facility]BS[facility] report (11/21/22 note) for recommended strategies for PO intake. Liquid Consistency and Strategies for Safe Swallow: Liquid Intake Recommendation: Thin Liquid Intake Strategies: No Straws Double Swallow Solid Food Consistency: Dietary Recommendations: Chopped/Advanced (NDD3) Additional Modifications to Solid Foods: Patient may have cereal with milk when supervised, however discontinue if coughing is evident (patient tolerated this well when observed today). Cue patient to double swallow (dry swallow), particularly on sticky or harder to chew consistencies. Alternate liquids and solids. Oral Medication Intake: Whole with Liquid Please contact the pharmacy regarding appropriate crushable or liquid drug formulations that are available whenever modified delivery is recommended. Compensatory Strategies and Precautions to be Taken for Safe Swallow: Sitting Upright (90 deg) Double Swallow No Straw Small Bites and Sips Alternate Liquids/Solids Rate of Ingestion Change Avoid Specific Foods Supervision While Eating and Drinking for Safe Swallow: Total Supervision (1:1) Foods to Avoid: Avoid hard to chew solids, sticky textures, mixed consistencies, and foods that break up into small pieces (rice, popcorn, nuts) Swallowing Recommended Treatments: Compens. Strategy Educat. Recommendation for Speech: Inpatient Speech Therapy Comment: atient seen before lunch for trials of more advanced textures, per patient request for dietary advancement. Patient was in common area, very cooperative with [employer] and motivated to try foods brought. Patient today was very conversational and pleasant, however continued to have questions about why he is having swallowing difficulty (results of MBSS again reviewed with patient as a result). Patient was given cereal with milk carton, with [employer] encouraging patient to prepare and eat the cereal to his pleasure. Patient put reasonable amount of milk with cereal and was noted to wait to eat until flakes had absorbed some of the milk. Patient took individual bites of cereal by spoon, chewing and swallowing each bite before taking more. Patient was noted not to talk while eating, waited to make comments between bites. Patient evidenced good management of the mixed textures of milk and cereal with no clinical signs of aspiration, no episodes of throat clearing or coughing throughout. Patient also took bites of melon and pineapple which were also brought by residency director, producing timely oral and pharyngeal phase of swallow with no difficulty, no c/o sensation of food stuck in pharynx. It was explained to patient that diet would be advanced to CHOPPED/ADVANCED and what that would mean in terms of dietary choices, his personal responsibility to make good choices, the nature of his swallowing difficulty, and the importance of using strategies of dry or double swallow, and alternating liquids and solids. Patient still expressed some concern that he was continuing on a diet with some restrictions, but was please that he would have more choices. Recommend UPGRADE diet to Chopped/Advanced (NDD3) with THIN liquids, pills whole with liquid or puree as preferred by patient (patient does not like pills crushed in puree). Make sure ample liquid is available to patient at time of pill administration. Continue to provide supervision during meals. Patient can have cereal with milk when supervised, discontinue if coughing evident. Nursing notified in person, MD by secure sheridan Frequency/Duration: Date Range for Service Req: Timeline to reassess: Graffiti Cleaner Clinican/Clinical Fellow: No Supervisory Statement: I have reviewed and agree with the student/clinical fellow's documentation: N/A Speech Language Pathologist: Sarah Cotter M.A., CCC-[employer]
[2022-12-02] MEDS: polyethylene glycoL 3350 17 GM POWD.PACK PO (16:33)
[2022-12-02 18:00] VITALS: BP 128/72; PULSE 72; RESP 18; TEMP 36.3; O2SAT 94
--- NOTE | 2022-12-02 19:56 | P.PNPSI_ITS ---
Subjective Subjective Date of Service: 12/02/22 Reason For Visit: Depression hopelessness irritability Subjective Notes: Conditional Voluntary Healthcare Proxy: No Guardianship: No Interim History: Patient seems somewhat better since his wheelchair was adjusted. Somewhat discouraged regarding swallowing difficulties but no aspiration events mood somewhat better today has been quite cooperative in PT OT not overly aggressive went to groups Medication Compliance: Yes Side effects from medications: Yes Mental Status Exam Mental Status Exam Patient Appearance: Appropriate Patient Orientation: Person, Place and Situation Level of Consciousness: Awake Patient Behavior: Appropriate, Cooperative and Fatigued Mood Description: Depressed, Blunted and Apprehensive Affect Description: Constricted and Apprehensive Patient Cognition Impaired: Yes Ability to Follow Directions: Good Speech Pattern: Clear Hallucinations: None Delusions: Not Present Thought Process: Linear Thought Content: positive for Intact, positive for Preoccupation, negative for Suicidal Ideation or negative for Homicidal Ideation Depressive Symptoms: Increased Anxiety, Loss of Int. in Activity and Difficulty Concentrating Judgement: Good Judgement and Insight: Better judgment and impulse control Diagnostics Vital Signs (24Hr): Vital Signs - 24 hr 12/02/22 06:00 Temperature 97.9 F Pulse Rate 78 Respiratory Rate 18 Blood Pressure 118/70 Pulse Oximetry 95 Oxygen Delivery Method Room Air BMI result Body Mass Index 31.6 Labs 11/13/22 07:43 11/12/22 09:32 Imaging Radiology Impressions: ITS Impressions Chest X-Ray 10/20/22 15:45 IMPRESSION: 1. Low lung volumes with bibasilar linear disc atelectasis versus scarring. 2. No airspace consolidation or effusion. Head CT 11/08/22 12:29 IMPRESSION: No acute intracranial hemorrhage or territorial infarction. Stable chronic postoperative changes with gliosis and encephalomalacia in the right frontal and right temporal lobes. Ex vacuo dilatation of the ventricles and diffuse parenchymal volume loss. Right-sided craniotomy changes. Chest X-Ray 11/12/22 10:32 IMPRESSION: Hypoexpanded lungs with bibasilar platelike atelectasis. Brain MRI 11/12/22 13:15 IMPRESSION: 1. No demonstrated acute intracranial abnormalities. 2. Chronic encephalomalacia of the right temporal, right frontal, and left occipital lobes. Small regions of chronic encephalomalacia in the parasagittal aspects of the bilateral parietal lobes. Moderate underlying microangiopathy and generalized cerebral volume loss. Chest X-Ray 11/14/22 15:52 IMPRESSION: Low lung volumes, bibasilar subsegmental atelectasis and slight elevation of the right hemidiaphragm similar to previous exam. Modified Barium Swallow 11/21/22 15:11 IMPRESSION: Laryngeal penetration on several occasions but no laryngeal aspiration. Mild retention of solid food in the valleculae which cleared with subsequent oral administration of water or thin barium. Correlate with speech therapy results. Medications Medications Current Medications Acetaminophen (Acetaminophen 325 Mg Tablet) 650 mg PO Q6H PRN PRN Reason: Headache/Pain Mild Scale (1-3) Last Admin: 12/02/22 18:17 Dose: 650 mg Al Hydroxide/Mg Hydroxide (Magnesium Hydrox/Alum Hydrox 30 Ml Oral.Susp) 30 ml PO Q6H PRN PRN Reason: Heartburn/Nausea Last Admin: 11/22/22 21:39 Dose: 30 ml Albuterol Sulfate (Albuterol Sulfate 90 Mcg 8 Gm Inhaler) 2 puff INHALE Q6H PRN PRN Reason: Wheezing Amlodipine Besylate (Amlodipine Besylate 5 Mg Tablet) 5 mg PO DAILY [facility]; Protocol Last Admin: 12/02/22 10:38 Dose: 5 mg Benzocaine (Throat Lozenge, Medicated Lozenge) 1 lozenge MUCOUS MEM Q2H PRN PRN Reason: Sore Throat Last Admin: 11/12/22 03:08 Dose: 1 lozenge Calcium Polycarbophil (Calcium Polycarbophil Tablet) 1 tab PO DAILY [facility] Last Admin: 12/02/22 09:06 Dose: 1 tab Docusate Sodium (Docusate Sodium 100 Mg Capsule) 100 mg PO DAILY PRN PRN Reason: constipation Last Admin: 11/14/22 21:03 Dose: 100 mg Finasteride (Finasteride 5 Mg Tablet) 5 mg PO DAILY [facility] Last Admin: 12/02/22 09:06 Dose: 5 mg Gabapentin (Gabapentin 300 Mg Capsule) 300 mg PO TID [facility] Last Admin: 12/02/22 14:52 Dose: 300 mg Guaifenesin/Dextromethorphan (Guaifenesin Dm 200/20/10 Ml 10 Ml Syrup) 10 ml PO Q4H PRN PRN Reason: Cough Last Admin: 11/20/22 05:31 Dose: 10 ml Hydroxyzine HCl (Hydroxyzine Hcl 25 Mg Tablet) 25 mg PO Q6H PRN PRN Reason: Anxiety Last Admin: 12/02/22 09:05 Dose: 25 mg Lamotrigine (Lamotrigine 25 Mg Tablet) 150 mg PO BID [facility] Last Admin: 12/02/22 09:06 Dose: 150 mg Latanoprost (Latanoprost 0.005 % Ophth No 2.5 Ml Drops) 1 drop EYE-BOTH BEDTIME [facility] Last Admin: 12/01/22 20:28 Dose: 1 drop Lidocaine (Lidocaine 5 % Ointment 35 Gm) 1 appl TOPICAL QID [facility] Last Admin: 12/02/22 18:07 Dose: Not Given Lisinopril (Lisinopril 20 Mg Tablet) 20 mg PO DAILY [facility]; Protocol Last Admin: 12/02/22 10:38 Dose: 20 mg Magnesium Hydroxide (Milk Of Magnesia 30 Ml Oral.Susp) 30 ml PO DAILY PRN PRN Reason: Constipation Last Admin: 11/28/22 21:13 Dose: 30 ml Melatonin (Melatonin 3 Mg Tablet) 9 mg PO BEDTIME [facility] Last Admin: 12/01/22 20:28 Dose: 9 mg Multi-Ingred Cream/Lotion/Oil/Oint (Mineral Oil/Petrolatum,White 106 Gm Tube) 1 appl TOPICAL BID [facility]; Protocol Last Admin: 12/02/22 10:13 Dose: 1 appl Multivitamins/Vitamin C (Multivitamin Tablet) 1 tab PO DAILY [facility] Last Admin: 12/02/22 09:07 Dose: 1 tab Naltrexone HCl (Naltrexone Hcl 50 Mg Tablet) 50 mg PO DAILY [facility] Last Admin: 12/02/22 09:05 Dose: 50 mg Nortriptyline HCl (Nortriptyline Hcl 25 Mg Capsule) 50 mg PO BEDTIME [facility] Last Admin: 12/01/22 20:28 Dose: 50 mg Nystatin (Nystatin Powder 15 Gm Bottle) 1 appl TOPICAL BID [facility] Last Admin: 12/02/22 10:13 Dose: 1 appl Omeprazole (Omeprazole 20 Mg Capsule.Dr) 20 mg PO BID@0630,1630 [facility] Last Admin: 12/02/22 16:33 Dose: 20 mg Ondansetron HCl (Ondansetron Odt 4 Mg Tab.Rapdis) 4 mg TRANSLINGU Q6H PRN PRN Reason: Nausea and Vomiting Last Admin: 11/26/22 03:06 Dose: 4 mg Oxybutynin Chloride (Oxybutynin Chloride Er 5 Mg Tab.Er.24) 10 mg PO DAILY [facility] Last Admin: 12/02/22 09:07 Dose: 10 mg Polyethylene Glycol (Polyethylene Glycol 3350 17 Gm Powd.Pack) 17 gm PO DAILY@1600 [facility] Last Admin: 12/02/22 16:33 Dose: 17 gm Psyllium Hydrophilic Mucilloid (Psyllium Seed 3.4 Gm Powd.Pack) 3.4 gm PO DAILY [facility] Last Admin: 12/02/22 10:13 Dose: 3.4 gm Quetiapine Fumarate (Quetiapine Fumarate 25 Mg Tablet) 25 mg PO Q4H PRN PRN Reason: Anxiety Last Admin: 12/02/22 09:06 Dose: 25 mg Quetiapine Fumarate (Quetiapine Fumarate 50 Mg Tablet) 50 mg PO BEDTIME [facility] Last Admin: 12/01/22 20:28 Dose: 50 mg Tamsulosin HCl (Tamsulosin Hcl 0.4 Mg Capsule) 0.4 mg PO DAILY [facility] Last Admin: 12/02/22 09:06 Dose: 0.4 mg Trazodone HCl (Trazodone Hcl 100 Mg Tablet) 200 mg PO BEDTIME [facility] Last Admin: 12/01/22 20:28 Dose: 200 mg Trazodone HCl (Trazodone Hcl 50 Mg Tablet) 50 mg PO BEDTIME PRN PRN Reason: Insomnia Last Admin: 12/02/22 00:48 Dose: 50 mg Venlafaxine HCl (Venlafaxine Hcl Er 37.5 Mg Cap.Er.24h) 112.5 mg PO DAILY [facility] Last Admin: 12/02/22 09:06 Dose: 112.5 mg Vitamin D (Cholecalciferol (Vitamin D3) 10 Mcg Tablet) 10 mcg PO DAILY [facility] Last Admin: 12/02/22 09:05 Dose: 10 mcg Allergies Allergies Allergy/AdvReac Type Severity Reaction Status Date / Time fentanyl [FENTANYL] Allergy Intermediate unknown Verified 04/08/22 07:00 Assessment & Plan Assessment & Plan (1) Cognitive and neurobehavioral dysfunction following brain injury: Status: Acute Code(s): G31.89 - Other specified degenerative diseases of nervous system; F09 - Unspecified mental disorder due to known physiological condition; S06.9X9S - Unspecified intracranial injury with loss of consciousness of unspecified duration, sequela (2) Major depressive disorder, recurrent severe without psychotic features: Status: Acute Code(s): F33.2 - Major depressive disorder, recurrent severe without psychotic features (3) Swallowing dysfunction: Status: Acute Code(s): R13.10 - Dysphagia, unspecified Assessment and Plan: See specific swallowing plan Plan The patient is a 67-year-old male, , 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 At this moment also, he has problems of housing since he will not be able to go back to his regular skilled nursing.? The patient has a long history of alcohol use disorder that he was not able to process or work on it.? Plan 1. Continue with the same treatment.? 2. We will work with the social media editor and DDS for a proper discharge planning.? 3. Continue with recommendations of Wound Care. 4. Increase Seroquel up to 150 mg po qhs. 10/30/22 restart lorazepam 1 hs prn insomnia norterip inc 100 hs level in 50 s monitor ekg 11/01 continue current tx plan 11/02/22- Bedside Swallow eval. s/p choking episode on 11/01. 2021 Increase Lexapro encourage CBT skills need supportive coaching patient increasingly hopeless helpless denies active self-harm check nortriptyline level 11/05/2022 Check nortriptyline level patient on Seroquel nortriptyline Lexapro.? Needs much reassurance and support the has difficulty interacting at times secondary to a hopelessness irritability passive SI.? Patient has having difficulty maintaining his posture in his chair unclear why this is happening for discuss safety issues with nursing will need OT and potentially Pt input? 11/06/2022 Patient depressed and anxious tried to review cognitive behavioral perspectives ways to emotionally manage current situational factors.? Patient has for an extended period of time had great deal of difficulty with any emotional a mental coping strategies.? Will and lorazepam p.r.n. 0.5 mg to help with anxiety trying get clarity from DTS regarding transition to skilled nursing setting positive reinforcement for patient's efforts at physical conditioning becomes demoralized easily denies active self-harm 11/07 continue tx. 11/08 no changes, pt had unwitnessed fall and hit head, head CT negative 11/09 no changes 11/10 no changes 11/11 no changes 11/12/22 acute med w/u neg incentive spirometer cont medication cbt skills cont pt/ot 11/12 medical workout came back negative. No changes in current treatment 11/14/2022 Patient depressed withdrawn more fatigued 11/18/21 taper lexapro start effexor lower seroquel sec to fatigue 11/19/21 Seroquel lowered inc venlafax 11/21/21 Pt with swallowing problem motor dysfx lower gabapentin lower nortriptyline lower seroquel 11/22 continue tx. 11/23 continue tx. 11/24/2022 More alert with lowered gabapentin nortriptyline lorazepam lower Lamictal to 150 b.i.d. hope to improve patient's balance motor function and consideration swallowing dysfunction can try and taper down on Seroquel in case this is also a contributing factor 11/25/2022 Patient has been active with OT change to venlafaxine from Lexapro and lowering of nortriptyline seems show some improvement Discharge planning continues 11/26/2022 the patient reports worsening his mood being more depressed and anxious. We will discuss the case with Dr. Haskins. 11/27/2022 no changes on mental status, we will keep on the same treatment 11/29 continue current treatment plan 11/30 continue current treatment plan 12/02/2022 Effexor was increased to 112.5 mg Seroquel have been lower to 50 mg and Mirapex discontinued hope being this will improve physical functioning Reason for contiued inpatient stay Substantial Risk for: harm to self, rapid decompensation and med/psych decompensation Time Spent With Patient Time: Total time managing care of this patient today ____ minutes.
[2022-12-02] MEDS: traZODone HCL 100 MG TABLET 200 MG PO (20:40)
[2022-12-02] MEDS: Nortriptyline HCl 25 MG CAPSULE 50 MG PO (20:40)
[2022-12-02] MEDS: Melatonin 3 MG TABLET 9 MG PO (20:40)
[2022-12-02] MEDS: QUEtiapine Fumarate 50 MG TABLET PO (20:41)
[2022-12-03] MEDS: Omeprazole 20 MG CAPSULE.DR PO ×2 (06:51→15:56)
[2022-12-03 08:11] VITALS: BP 117/68; PULSE 74; RESP 18; TEMP 36; O2SAT 96
[2022-12-03] MEDS: Gabapentin 300 MG CAPSULE PO ×3 (08:35→21:56)
[2022-12-03] MEDS: Multivitamin TABLET 1 TAB PO (08:35)
[2022-12-03] MEDS: Naltrexone HCl 50 MG TABLET PO (08:36)
[2022-12-03] MEDS: lamoTRIgine 25 MG TABLET 150 MG PO ×2 (08:37→21:56)
[2022-12-03] MEDS: Venlafaxine HCl ER 37.5 MG CAP.ER.24H 112.5 MG PO (08:37)
[2022-12-03] MEDS: Cholecalciferol (Vitamin D3) 10 MCG TABLET PO (08:38)
[2022-12-03] MEDS: calcium polycarbophiL TABLET 1 TAB PO (08:38)
[2022-12-03] MEDS: amLODIPine Besylate 5 MG TABLET PO (08:38)
[2022-12-03] MEDS: Tamsulosin HCL 0.4 MG CAPSULE PO (08:38)
[2022-12-03] MEDS: lisinopriL 20 MG TABLET PO (08:39)
[2022-12-03] MEDS: Finasteride 5 MG TABLET PO (08:39)
[2022-12-03] MEDS: Lidocaine 5 % Ointment 35 GM 1 APPL TOPICAL ×2 (11:10→13:23)
[2022-12-03] MEDS: Nystatin Powder 15 GM BOTTLE 1 APPL TOPICAL ×2 (13:22→22:04)
[2022-12-03] MEDS: Mineral Oil/Petrolatum,White 106 GM Tube 1 APPL TOPICAL (13:23)
[2022-12-03] MEDS: polyethylene glycoL 3350 17 GM POWD.PACK PO (15:56)
--- NOTE | 2022-12-03 17:32 | MHC.SLORD ---
Addendum entered and electronically signed by Maddy Harris MA, CCC-[employer] 12/04/22 11:56: D.S. Original Note: Speech Language Pathology Order Status: Called to check in with RN regarding toleration of upgrade to chopped/advanced solids. RN reports pt is tolerating diet well w/ no observed coughing or aspiration events. [employer] will continue to follow.
[2022-12-03 18:00] VITALS: BP 146/77; PULSE 70; RESP 16; TEMP 36.4; O2SAT 97
--- NOTE | 2022-12-03 20:36 | P.PNPSI_ITS ---
Subjective Subjective Date of Service: 12/03/22 Reason For Visit: Depression hopelessness irritability Subjective Notes: Conditional Voluntary Interim History: Patient blunted with periods of irritability Medication Compliance: Yes Mental Status Exam Mental Status Exam Patient Appearance: Appropriate Patient Orientation: Person, Place and Situation Level of Consciousness: Awake Patient Behavior: Appropriate, Cooperative and Fatigued Mood Description: Depressed, Blunted and Apprehensive Affect Description: Constricted and Apprehensive Patient Cognition Impaired: Yes Ability to Follow Directions: Good Speech Pattern: Clear Hallucinations: None Delusions: Not Present Thought Process: Linear Thought Content: positive for Intact, positive for Preoccupation, negative for Suicidal Ideation or negative for Homicidal Ideation Depressive Symptoms: Increased Anxiety, Loss of Int. in Activity and Difficulty Concentrating Judgement: Good Judgement and Insight: Better judgment and impulse control Diagnostics Vital Signs (24Hr): Vital Signs - 24 hr 12/03/22 08:11 Temperature 96.8 F Pulse Rate 74 Respiratory Rate 18 Blood Pressure 117/68 Pulse Oximetry 96 Oxygen Delivery Method Room Air BMI result Body Mass Index 31.6 Labs 11/13/22 07:43 11/12/22 09:32 Imaging Radiology Impressions: ITS Impressions Chest X-Ray 10/20/22 15:45 IMPRESSION: 1. Low lung volumes with bibasilar linear disc atelectasis versus scarring. 2. No airspace consolidation or effusion. Head CT 11/08/22 12:29 IMPRESSION: No acute intracranial hemorrhage or territorial infarction. Stable chronic postoperative changes with gliosis and encephalomalacia in the right frontal and right temporal lobes. Ex vacuo dilatation of the ventricles and diffuse parenchymal volume loss. Right-sided craniotomy changes. Chest X-Ray 11/12/22 10:32 IMPRESSION: Hypoexpanded lungs with bibasilar platelike atelectasis. Brain MRI 11/12/22 13:15 IMPRESSION: 1. No demonstrated acute intracranial abnormalities. 2. Chronic encephalomalacia of the right temporal, right frontal, and left occipital lobes. Small regions of chronic encephalomalacia in the parasagittal aspects of the bilateral parietal lobes. Moderate underlying microangiopathy and generalized cerebral volume loss. Chest X-Ray 11/14/22 15:52 IMPRESSION: Low lung volumes, bibasilar subsegmental atelectasis and slight elevation of the right hemidiaphragm similar to previous exam. Modified Barium Swallow 11/21/22 15:11 IMPRESSION: Laryngeal penetration on several occasions but no laryngeal aspiration. Mild retention of solid food in the valleculae which cleared with subsequent oral administration of water or thin barium. Correlate with speech therapy results. Medications Medications Current Medications Acetaminophen (Acetaminophen 325 Mg Tablet) 650 mg PO Q6H PRN PRN Reason: Headache/Pain Mild Scale (1-3) Last Admin: 12/02/22 23:38 Dose: 650 mg Al Hydroxide/Mg Hydroxide (Magnesium Hydrox/Alum Hydrox 30 Ml Oral.Susp) 30 ml PO Q6H PRN PRN Reason: Heartburn/Nausea Last Admin: 11/22/22 21:39 Dose: 30 ml Albuterol Sulfate (Albuterol Sulfate 90 Mcg 8 Gm Inhaler) 2 puff INHALE Q6H PRN PRN Reason: Wheezing Amlodipine Besylate (Amlodipine Besylate 5 Mg Tablet) 5 mg PO DAILY [facility]; Protocol Last Admin: 12/03/22 08:38 Dose: 5 mg Benzocaine (Throat Lozenge, Medicated Lozenge) 1 lozenge MUCOUS MEM Q2H PRN PRN Reason: Sore Throat Last Admin: 11/12/22 03:08 Dose: 1 lozenge Calcium Polycarbophil (Calcium Polycarbophil Tablet) 1 tab PO DAILY [facility] Last Admin: 12/03/22 08:38 Dose: 1 tab Docusate Sodium (Docusate Sodium 100 Mg Capsule) 100 mg PO DAILY PRN PRN Reason: constipation Last Admin: 11/14/22 21:03 Dose: 100 mg Finasteride (Finasteride 5 Mg Tablet) 5 mg PO DAILY [facility] Last Admin: 12/03/22 08:39 Dose: 5 mg Gabapentin (Gabapentin 300 Mg Capsule) 300 mg PO TID [facility] Last Admin: 12/03/22 15:56 Dose: 300 mg Guaifenesin/Dextromethorphan (Guaifenesin Dm 200/20/10 Ml 10 Ml Syrup) 10 ml PO Q4H PRN PRN Reason: Cough Last Admin: 11/20/22 05:31 Dose: 10 ml Hydroxyzine HCl (Hydroxyzine Hcl 25 Mg Tablet) 25 mg PO Q6H PRN PRN Reason: Anxiety Last Admin: 12/02/22 23:38 Dose: 25 mg Lamotrigine (Lamotrigine 25 Mg Tablet) 150 mg PO BID [facility] Last Admin: 12/03/22 08:37 Dose: 150 mg Latanoprost (Latanoprost 0.005 % Ophth No 2.5 Ml Drops) 1 drop EYE-BOTH BEDTIME [facility] Last Admin: 12/02/22 23:28 Dose: Not Given Lidocaine (Lidocaine 5 % Ointment 35 Gm) 1 appl TOPICAL QID [facility] Last Admin: 12/03/22 18:06 Dose: Not Given Lisinopril (Lisinopril 20 Mg Tablet) 20 mg PO DAILY [facility]; Protocol Last Admin: 12/03/22 08:39 Dose: 20 mg Magnesium Hydroxide (Milk Of Magnesia 30 Ml Oral.Susp) 30 ml PO DAILY PRN PRN Reason: Constipation Last Admin: 11/28/22 21:13 Dose: 30 ml Melatonin (Melatonin 3 Mg Tablet) 9 mg PO BEDTIME [facility] Last Admin: 12/02/22 20:40 Dose: 9 mg Multi-Ingred Cream/Lotion/Oil/Oint (Mineral Oil/Petrolatum,White 106 Gm Tube) 1 appl TOPICAL BID [facility]; Protocol Last Admin: 12/03/22 13:23 Dose: 1 appl Multivitamins/Vitamin C (Multivitamin Tablet) 1 tab PO DAILY [facility] Last Admin: 12/03/22 08:35 Dose: 1 tab Naltrexone HCl (Naltrexone Hcl 50 Mg Tablet) 50 mg PO DAILY [facility] Last Admin: 12/03/22 08:36 Dose: 50 mg Nortriptyline HCl (Nortriptyline Hcl 25 Mg Capsule) 50 mg PO BEDTIME [facility] Last Admin: 12/02/22 20:40 Dose: 50 mg Nystatin (Nystatin Powder 15 Gm Bottle) 1 appl TOPICAL BID [facility] Last Admin: 12/03/22 13:22 Dose: 1 appl Omeprazole (Omeprazole 20 Mg Capsule.Dr) 20 mg PO BID@0630,1630 [facility] Last Admin: 12/03/22 15:56 Dose: 20 mg Ondansetron HCl (Ondansetron Odt 4 Mg Tab.Rapdis) 4 mg TRANSLINGU Q6H PRN PRN Reason: Nausea and Vomiting Last Admin: 11/26/22 03:06 Dose: 4 mg Oxybutynin Chloride (Oxybutynin Chloride Er 5 Mg Tab.Er.24) 10 mg PO DAILY [facility] Last Admin: 12/03/22 08:35 Dose: 10 mg Polyethylene Glycol (Polyethylene Glycol 3350 17 Gm Powd.Pack) 17 gm PO DAILY@1600 [facility] Last Admin: 12/03/22 15:56 Dose: 17 gm Psyllium Hydrophilic Mucilloid (Psyllium Seed 3.4 Gm Powd.Pack) 3.4 gm PO DAILY [facility] Last Admin: 12/03/22 08:34 Dose: 3.4 gm Quetiapine Fumarate (Quetiapine Fumarate 25 Mg Tablet) 25 mg PO Q4H PRN PRN Reason: Anxiety Last Admin: 12/02/22 09:06 Dose: 25 mg Quetiapine Fumarate (Quetiapine Fumarate 50 Mg Tablet) 50 mg PO BEDTIME [facility] Last Admin: 12/02/22 20:41 Dose: 50 mg Tamsulosin HCl (Tamsulosin Hcl 0.4 Mg Capsule) 0.4 mg PO DAILY [facility] Last Admin: 12/03/22 08:38 Dose: 0.4 mg Trazodone HCl (Trazodone Hcl 100 Mg Tablet) 200 mg PO BEDTIME [facility] Last Admin: 12/02/22 20:40 Dose: 200 mg Trazodone HCl (Trazodone Hcl 50 Mg Tablet) 50 mg PO BEDTIME PRN PRN Reason: Insomnia Last Admin: 12/02/22 23:38 Dose: 50 mg Venlafaxine HCl (Venlafaxine Hcl Er 37.5 Mg Cap.Er.24h) 112.5 mg PO DAILY [facility] Last Admin: 12/03/22 08:37 Dose: 112.5 mg Vitamin D (Cholecalciferol (Vitamin D3) 10 Mcg Tablet) 10 mcg PO DAILY [facility] Last Admin: 12/03/22 08:38 Dose: 10 mcg Allergies Allergies Allergy/AdvReac Type Severity Reaction Status Date / Time fentanyl [FENTANYL] Allergy Intermediate unknown Verified 04/08/22 07:00 Assessment & Plan Assessment & Plan (1) Cognitive and neurobehavioral dysfunction following brain injury: Status: Acute Code(s): G31.89 - Other specified degenerative diseases of nervous system; F09 - Unspec ified mental disorder due to known physiological condition; S06.9X9S - Unspecified intracranial injury with loss of consciousness of unspecified duration, sequela (2) Major depressive disorder, recurrent severe without psychotic features: Status: Acute Code(s): F33.2 - Major depressive disorder, recurrent severe without psychotic features (3) Swallowing dysfunction: Status: Acute Code(s): R13.10 - Dysphagia, unspecified Assessment and Plan: See specific swallowing plan Plan The patient is a 67-year-old male, , 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 At this moment also, he has problems of housing since he will not be able to go back to his regular detention.? The patient has a long history of alcohol use disorder that he was not able to process or work on it.? Plan 1. Continue with the same treatment.? 2. We will work with the medical social worker and DDS for a proper discharge planning.? 3. Continue with recommendations of Wound Care. 4. Increase Seroquel up to 150 mg po qhs. 10/30/22 restart lorazepam 1 hs prn insomnia norterip inc 100 hs level in 50 s monitor ekg 11/01 continue current tx plan 11/02/22- Bedside Swallow eval. s/p choking episode on 11/01. 2021 Increase Lexapro encourage CBT skills need supportive coaching patient increasingly hopeless helpless denies active self-harm check nortriptyline level 11/05/2022 Check nortriptyline level patient on Seroquel nortriptyline Lexapro.? Needs much reassurance and support the has difficulty interacting at times secondary to a hopelessness irritability passive SI.? Patient has having difficulty maintaining his posture in his chair unclear why this is happening for discuss safety issues with nursing will need OT and potentially Pt input? 11/06/2022 Patient depressed and anxious tried to review cognitive behavioral perspectives ways to emotionally manage current situational factors.? Patient has for an extended period of time had great deal of difficulty with any emotional a mental coping strategies.? Will and lorazepam p.r.n. 0.5 mg to help with anxiety trying get clarity from DTS regarding transition to detention setting positive reinforcement for patient's efforts at physical conditioning becomes demoralized easily denies active self-harm 11/07 continue tx. 11/08 no changes, pt had unwitnessed fall and hit head, head CT negative 11/09 no changes 11/10 no changes 11/11 no changes 11/12/22 acute med w/u neg incentive spirometer cont medication cbt skills cont pt/ot 11/12 medical workout came back negative. No changes in current treatment 11/14/2022 Patient depressed withdrawn more fatigued 11/18/21 taper lexapro start effexor lower seroquel sec to fatigue 11/19/21 Seroquel lowered inc venlafax 11/21/21 Pt with swallowing problem motor dysfx lower gabapentin lower nortriptyline lower seroquel 11/22 continue tx. 11/23 continue tx. 11/24/2022 More alert with lowered gabapentin nortriptyline lorazepam lower Lamictal to 150 b.i.d. hope to improve patient's balance motor function and consideration swallowing dysfunction can try and taper down on Seroquel in case this is also a contributing factor 11/25/2022 Patient has been active with OT change to venlafaxine from Lexapro and lowering of nortriptyline seems show some improvement Discharge planning continues 11/26/2022 the patient reports worsening his mood being more depressed and anxious. We will discuss the case with Dr. Haskins. 11/27/2022 no changes on mental status, we will keep on the same treatment 11/29 continue current treatment plan 11/30 continue current treatment plan 12/02/2022 Effexor was increased to 112.5 mg Seroquel have been lower to 50 mg and Mirapex discontinued hope being this will improve physical functioning 12/03/2021 Continue Effexor 112 Seroquel 50 at bedtime patient's diet was able to be increased Reason for contiued inpatient stay Substantial Risk for: harm to self and rapid decompensation Time Spent With Patient Time: Total time managing care of this patient today ____ minutes.
[2022-12-03] MEDS: traZODone HCL 100 MG TABLET 200 MG PO (21:55)
[2022-12-03] MEDS: Melatonin 3 MG TABLET 9 MG PO (21:55)
[2022-12-03] MEDS: Nortriptyline HCl 25 MG CAPSULE 50 MG PO (21:55)
[2022-12-03] MEDS: Acetaminophen 325 MG TABLET 650 MG PO (21:56)
[2022-12-03] MEDS: Latanoprost 0.005 % Ophth Sol 2.5 ML DROPS 1 DROP EYE-BOTH (22:00)
[2022-12-03] MEDS: QUEtiapine Fumarate 50 MG TABLET PO (22:08)
[2022-12-04] MEDS: Omeprazole 20 MG CAPSULE.DR PO ×2 (05:35→16:17)
[2022-12-04 07:00] VITALS: BMI 30.2
[2022-12-04 09:35] VITALS: BP 102/60; PULSE 82; RESP 20; TEMP 36.1; O2SAT 95
[2022-12-04] MEDS: lamoTRIgine 25 MG TABLET 150 MG PO ×2 (09:38→22:38)
[2022-12-04] MEDS: Gabapentin 300 MG CAPSULE PO ×3 (09:40→22:37)
[2022-12-04] MEDS: lisinopriL 20 MG TABLET PO (09:41)
[2022-12-04] MEDS: Multivitamin TABLET 1 TAB PO (09:41)
[2022-12-04] MEDS: calcium polycarbophiL TABLET 1 TAB PO (09:41)
[2022-12-04] MEDS: amLODIPine Besylate 5 MG TABLET PO (09:42)
[2022-12-04] MEDS: Venlafaxine HCl ER 37.5 MG CAP.ER.24H 112.5 MG PO (09:43)
[2022-12-04] MEDS: Tamsulosin HCL 0.4 MG CAPSULE PO (09:43)
[2022-12-04] MEDS: Naltrexone HCl 50 MG TABLET PO (09:43)
[2022-12-04] MEDS: Cholecalciferol (Vitamin D3) 10 MCG TABLET PO (09:44)
[2022-12-04] MEDS: Finasteride 5 MG TABLET PO (09:44)
[2022-12-04] MEDS: Lidocaine 5 % Ointment 35 GM 1 APPL TOPICAL ×2 (09:45→14:45)
[2022-12-04] MEDS: Mineral Oil/Petrolatum,White 106 GM Tube 1 APPL TOPICAL (09:45)
[2022-12-04] MEDS: Nystatin Powder 15 GM BOTTLE 1 APPL TOPICAL (09:45)
--- NOTE | 2022-12-04 13:01 | MHC.SL.SWA ---
Speech Pathologist Impression: Risk of Aspiration Due to: Neurological Condition Reduced Cognition Dysphasia Diet Status: Continue on Chopped/Advanced (NDD3) with THIN liquids, pills whole with liquid or puree as preferred by patient (patient does not like pills crushed in puree). See full [facility] report (11/21/22 note) for recommended strategies for PO intake. Liquid Consistency and Strategies for Safe Swallow: Liquid Intake Recommendation: Thin Liquid Intake Strategies: No Straws Double Swallow Solid Food Consistency: Dietary Recommendations: Chopped/Advanced (NDD3) Additional Modifications to Solid Foods: Patient may have cereal with milk when supervised, however discontinue if coughing is evident (patient tolerated this well when observed today). Cue patient to double swallow (dry swallow), particularly on sticky or harder to chew consistencies. Alternate liquids and solids. Oral Medication Intake: Whole with Liquid Please contact the pharmacy regarding appropriate crushable or liquid drug formulations that are available whenever modified delivery is recommended. Compensatory Strategies and Precautions to be Taken for Safe Swallow: Sitting Upright (90 deg) Double Swallow No Straw Small Bites and Sips Alternate Liquids/Solids Rate of Ingestion Change Avoid Specific Foods Supervision While Eating and Drinking for Safe Swallow: Total Supervision (1:1) Foods to Avoid: Avoid hard to chew solids, sticky textures, mixed consistencies, and foods that break up into small pieces (rice, popcorn, nuts) Swallowing Recommended Treatments: Compens. Strategy Educat. Recommendation for Speech: Inpatient Speech Therapy Comment: Patient seen during lunch today for toleration of diet. Patient was observed for a period from a distance taking meal without the MASTER TECHNICIAN signaling presence. Patient noted to be taking bites of chopped cheese burger, then adding cottage cheese to mouth before swallowing (Multiple bites before initiating swallow). MASTER TECHNICIAN then approached patient who had a number of complaints. Pt's initial complaint was that he was sick to his stomach, but this was unclear from his behavior. Second complaint was regarding the diet: he had asked for a bun for his burger, but wasn't given one, he asked for both a fruit cup and a tuna sandwich but was advised that these foods were not on his current diet. MASTER TECHNICIAN discussed the issue of limitations of individualizing any diet due to the institutional nature of food production in the hospital, however that I would make a good rupal effort to see if any adjustments could be made. Additionally advised Samanta that upgrading to a regular diet was not advised at this time, again, as some adjustments needed to be made for his swallowing needs. Patient again had questions about swallowing needs ( Why is this happening now? TBI was in 2007...). Final complaint was that he has been referred for an ENT assessment by his Psychiatrist, which he expressed both wariness and confusion as to why this referral was made. Patient continues to be resistant to dietary/consistency recommendations to assure safe swallow, continues to question why he has swallowing issues defensively. Given observed behavior, ongoing risks for choking or aspiration episode, recommend no change to diet at this time. Frequency/Duration: Date Range for Service Req: Timeline to reassess: Clay Miner Clinican/Clinical Fellow: No Supervisory Statement: I have reviewed and agree with the student/clinical fellow's documentation: N/A Speech Language Pathologist: Sarah Cotter M.A., CCC-MASTER TECHNICIAN
--- NOTE | 2022-12-04 13:53 | P.PNPSI_ITS ---
Subjective Subjective Date of Service: 12/04/22 Reason For Visit: Depression hopelessness irritability Subjective Notes: Conditional Voluntary Interim History: For the patient remains depressed somewhat intermittently hopeless helpless intermittently despondent with thoughts at times he would be better off . He is however feeling better Medication Compliance: Yes Side effects from medications: Yes Attending Groups: Yes Mental Status Exam Mental Status Exam Patient Appearance: Appropriate Patient Orientation: Person, Place and Situation Level of Consciousness: Awake Patient Behavior: Appropriate, Cooperative and Fatigued Mood Description: Depressed, Blunted and Apprehensive Affect Description: Constricted and Apprehensive Patient Cognition Impaired: Yes Ability to Follow Directions: Good Speech Pattern: Clear Hallucinations: None Delusions: Not Present Thought Process: Linear Thought Content: positive for Intact, positive for Preoccupation, negative for Suicidal Ideation or negative for Homicidal Ideation Depressive Symptoms: Increased Anxiety, Loss of Int. in Activity and Difficulty Concentrating Judgement: Good Judgement and Insight: Better judgment and impulse control Diagnostics Vital Signs (24Hr): Vital Signs - 24 hr 12/03/22 18:00 12/04/22 09:35 Temperature 97.5 F 97.0 F Pulse Rate 70 82 Respiratory Rate 16 20 Blood Pressure 146/77 H 102/60 Pulse Oximetry 97 95 Oxygen Delivery Method Room Air Room Air BMI result Body Mass Index 30.2 Labs 11/13/22 07:43 11/12/22 09:32 Imaging Radiology Impressions: ITS Impressions Chest X-Ray 10/20/22 15:45 IMPRESSION: 1. Low lung volumes with bibasilar linear disc atelectasis versus scarring. 2. No airspace consolidation or effusion. Head CT 11/08/22 12:29 IMPRESSION: No acute intracranial hemorrhage or territorial infarction. Stable chronic postoperative changes with gliosis and encephalomalacia in the right frontal and right temporal lobes. Ex vacuo dilatation of the ventricles and diffuse parenchymal volume loss. Right-sided craniotomy changes. Chest X-Ray 11/12/22 10:32 IMPRESSION: Hypoexpanded lungs with bibasilar platelike atelectasis. Brain MRI 11/12/22 13:15 IMPRESSION: 1. No demonstrated acute intracranial abnormalities. 2. Chronic encephalomalacia of the right temporal, right frontal, and left occipital lobes. Small regions of chronic encephalomalacia in the parasagittal aspects of the bilateral parietal lobes. Moderate underlying microangiopathy and generalized cerebral volume loss. Chest X-Ray 11/14/22 15:52 IMPRESSION: Low lung volumes, bibasilar subsegmental atelectasis and slight elevation of the right hemidiaphragm similar to previous exam. Modified Barium Swallow 11/21/22 15:11 IMPRESSION: Laryngeal penetration on several occasions but no laryngeal aspiration. Mild retention of solid food in the valleculae which cleared with subsequent oral administration of water or thin barium. Correlate with speech therapy results. Medications Medications Current Medications Acetaminophen (Acetaminophen 325 Mg Tablet) 650 mg PO Q6H PRN PRN Reason: Headache/Pain Mild Scale (1-3) Last Admin: 12/03/22 21:56 Dose: 650 mg Al Hydroxide/Mg Hydroxide (Magnesium Hydrox/Alum Hydrox 30 Ml Oral.Susp) 30 ml PO Q6H PRN PRN Reason: Heartburn/Nausea Last Admin: 11/22/22 21:39 Dose: 30 ml Albuterol Sulfate (Albuterol Sulfate 90 Mcg 8 Gm Inhaler) 2 puff INHALE Q6H PRN PRN Reason: Wheezing Amlodipine Besylate (Amlodipine Besylate 5 Mg Tablet) 5 mg PO DAILY [facility]; Protocol Last Admin: 12/04/22 09:42 Dose: 5 mg Benzocaine (Throat Lozenge, Medicated Lozenge) 1 lozenge MUCOUS MEM Q2H PRN PRN Reason: Sore Throat Last Admin: 11/12/22 03:08 Dose: 1 lozenge Calcium Polycarbophil (Calcium Polycarbophil Tablet) 1 tab PO DAILY [facility] Last Admin: 12/04/22 09:41 Dose: 1 tab Docusate Sodium (Docusate Sodium 100 Mg Capsule) 100 mg PO DAILY PRN PRN Reason: constipation Last Admin: 11/14/22 21:03 Dose: 100 mg Finasteride (Finasteride 5 Mg Tablet) 5 mg PO DAILY [facility] Last Admin: 12/04/22 09:44 Dose: 5 mg Gabapentin (Gabapentin 300 Mg Capsule) 300 mg PO TID [facility] Last Admin: 12/04/22 09:40 Dose: 300 mg Guaifenesin/Dextromethorphan (Guaifenesin Dm 200/20/10 Ml 10 Ml Syrup) 10 ml PO Q4H PRN PRN Reason: Cough Last Admin: 11/20/22 05:31 Dose: 10 ml Hydroxyzine HCl (Hydroxyzine Hcl 25 Mg Tablet) 25 mg PO Q6H PRN PRN Reason: Anxiety Last Admin: 12/02/22 23:38 Dose: 25 mg Lamotrigine (Lamotrigine 25 Mg Tablet) 150 mg PO BID [facility] Last Admin: 12/04/22 09:38 Dose: 150 mg Latanoprost (Latanoprost 0.005 % Ophth No 2.5 Ml Drops) 1 drop EYE-BOTH BEDTIME [facility] Last Admin: 12/03/22 22:00 Dose: 1 drop Lidocaine (Lidocaine 5 % Ointment 35 Gm) 1 appl TOPICAL QID [facility] Last Admin: 12/04/22 09:45 Dose: 1 appl Lisinopril (Lisinopril 20 Mg Tablet) 20 mg PO DAILY [facility]; Protocol Last Admin: 12/04/22 09:41 Dose: 20 mg Magnesium Hydroxide (Milk Of Magnesia 30 Ml Oral.Susp) 30 ml PO DAILY PRN PRN Reason: Constipation Last Admin: 11/28/22 21:13 Dose: 30 ml Melatonin (Melatonin 3 Mg Tablet) 9 mg PO BEDTIME [facility] Last Admin: 12/03/22 21:55 Dose: 9 mg Multi-Ingred Cream/Lotion/Oil/Oint (Mineral Oil/Petrolatum,White 106 Gm Tube) 1 appl TOPICAL BID [facility]; Protocol Last Admin: 12/04/22 09:45 Dose: 1 appl Multivitamins/Vitamin C (Multivitamin Tablet) 1 tab PO DAILY [facility] Last Admin: 12/04/22 09:41 Dose: 1 tab Naltrexone HCl (Naltrexone Hcl 50 Mg Tablet) 50 mg PO DAILY [facility] Last Admin: 12/04/22 09:43 Dose: 50 mg Nortriptyline HCl (Nortriptyline Hcl 25 Mg Capsule) 50 mg PO BEDTIME [facility] Last Admin: 12/03/22 21:55 Dose: 50 mg Nystatin (Nystatin Powder 15 Gm Bottle) 1 appl TOPICAL BID [facility] Last Admin: 12/04/22 09:45 Dose: 1 appl Omeprazole (Omeprazole 20 Mg Capsule.Dr) 20 mg PO BID@0630,1630 [facility] Last Admin: 12/04/22 05:35 Dose: 20 mg Ondansetron HCl (Ondansetron Odt 4 Mg Tab.Rapdis) 4 mg TRANSLINGU Q6H PRN PRN Reason: Nausea and Vomiting Last Admin: 11/26/22 03:06 Dose: 4 mg Oxybutynin Chloride (Oxybutynin Chloride Er 5 Mg Tab.Er.24) 10 mg PO DAILY [facility] Last Admin: 12/04/22 09:40 Dose: 10 mg Polyethylene Glycol (Polyethylene Glycol 3350 17 Gm Powd.Pack) 17 gm PO DAILY@1600 [facility] Last Admin: 12/03/22 15:56 Dose: 17 gm Psyllium Hydrophilic Mucilloid (Psyllium Seed 3.4 Gm Powd.Pack) 3.4 gm PO DAILY [facility] Last Admin: 12/04/22 09:45 Dose: 3.4 gm Quetiapine Fumarate (Quetiapine Fumarate 25 Mg Tablet) 25 mg PO Q4H PRN PRN Reason: Anxiety Last Admin: 12/02/22 09:06 Dose: 25 mg Quetiapine Fumarate (Quetiapine Fumarate 50 Mg Tablet) 50 mg PO BEDTIME [facility] Last Admin: 12/03/22 22:08 Dose: 50 mg Tamsulosin HCl (Tamsulosin Hcl 0.4 Mg Capsule) 0.4 mg PO DAILY [facility] Last Admin: 12/04/22 09:43 Dose: 0.4 mg Trazodone HCl (Trazodone Hcl 100 Mg Tablet) 200 mg PO BEDTIME [facility] Last Admin: 12/03/22 21:55 Dose: 200 mg Trazodone HCl (Trazodone Hcl 50 Mg Tablet) 50 mg PO BEDTIME PRN PRN Reason: Insomnia Last Admin: 12/02/22 23:38 Dose: 50 mg Valacyclovir HCl (Valacyclovir Hcl 1,000 Mg Tablet) 1,000 mg PO Q12H [facility] Stop: 12/05/22 14:01 Venlafaxine HCl (Venlafaxine Hcl Er 37.5 Mg Cap.Er.24h) 112.5 mg PO DAILY [facility] Last Admin: 12/04/22 09:43 Dose: 112.5 mg Vitamin D (Cholecalciferol (Vitamin D3) 10 Mcg Tablet) 10 mcg PO DAILY [facility] Last Admin: 12/04/22 09:44 Dose: 10 mcg Allergies Allergies Allergy/AdvReac Type Severity Reaction Status Date / Time fentanyl [FENTANYL] Allergy Intermediate unknown Verified 04/08/22 07:00 Assessment & Plan Assessment & Plan (1) Cognitive and neurobehavioral dysfunction following brain injury: Status: Acute Code(s): G31.89 - Other specified degenerative diseases of nervous system; F09 - Unspecified mental disorder due to known physiological condition; S06.9X9S - Unspecified intracranial injury with loss of consciousness of unspecified duration, sequela (2) Major depressive disorder, recurrent severe without psychotic features: Status: Acute Code(s): F33.2 - Major depressive disorder, recurrent severe without psychotic features (3) Swallowing dysfunction: Status: Acute Code(s): R13.10 - Dysphagia, unspecified Assessment and Plan: See specific swallowing plan Plan The patient is a 67-year-old male, , 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 At this moment also, he has problems of housing since he will not be able to go back to his regular longterm.? The patient has a long history of alcohol use disorder that he was not able to process or work on it.? Plan 1. Continue with the same treatment.? 2. We will work with the social work job titles and DDS for a proper discharge planning.? 3. Continue with recommendations of Wound Care. 4. Increase Seroquel up to 150 mg po qhs. 10/30/22 restart lorazepam 1 hs prn insomnia norterip inc 100 hs level in 50 s monitor ekg 11/01 continue current tx plan 11/02/22- Bedside Swallow eval. s/p choking episode on 11/01. 2021 Increase Lexapro encourage CBT skills need supportive coaching patient increasingly hopeless helpless denies active self-harm check nortriptyline level 11/05/2022 Check nortriptyline level patient on Seroquel nortriptyline Lexapro.? Needs much reassurance and support the has difficulty interacting at times secondary to a hopelessness irritability passive SI.? Patient has having difficulty maintaining his posture in his chair unclear why this is happening for discuss safety issues with nursing will need OT and potentially Pt input? 11/06/2022 Patient depressed and anxious tried to review cognitive behavioral perspectives ways to emotionally manage current situational factors.? Patient has for an extended period of time had great deal of difficulty with any emotional a mental coping strategies.? Will and lorazepam p.r.n. 0.5 mg to help with anxiety trying get clarity from DTS regarding transition to longterm setting positive reinforcement for patient's efforts at physical conditioning becomes demoralized easily denies active self-harm 11/07 continue tx. 11/08 no changes, pt had unwitnessed fall and hit head, head CT negative 11/09 no changes 11/10 no changes 11/11 no changes 11/12/22 acute med w/u neg incentive spirometer cont medication cbt skills cont pt/ot 11/12 medical workout came back negative. No changes in current treatment 11/14/2022 Patient depressed withdrawn more fatigued 11/18/21 taper lexapro start effexor lower seroquel sec to fatigue 11/19/21 Seroquel lowered inc venlafax 11/21/21 Pt with swallowing problem motor dysfx lower gabapentin lower nortriptyline lower seroquel 11/22 continue tx. 11/23 continue tx. 11/24/2022 More alert with lowered gabapentin nortriptyline lorazepam lower Lamictal to 150 b.i.d. hope to improve patient's balance motor function and consideration swallowing dysfunction can try and taper down on Seroquel in case this is also a contributing factor 11/25/2022 Patient has been active with OT change to venlafaxine from Lexapro and lowering of nortriptyline seems show some improvement Discharge planning continues 11/26/2022 the patient reports worsening his mood being more depressed and anxious. We will discuss the case with Dr. Haskins. 11/27/2022 no changes on mental status, we will keep on the same treatment 11/29 continue current treatment plan 11/30 continue current treatment plan 12/02/2022 Effexor was increased to 112.5 mg Seroquel have been lower to 50 mg and Mirapex discontinued hope being this will improve physical functioning 12/03/2021 Continue Effexor 112 Seroquel 50 at bedtime patient's diet was able to be increased 12/04/2022 Increase Effexor to 150 mg continue physical therapy on the unit reviewed cognitive behavioral and positive supports Stop Seroquel will try olanzapine 2.5 mg at bedtime Patient educated on: diagnosis, medication risk/benefits, therapeutic strategies and medical condition Informed Consent: further education needed Reason for contiued inpatient stay Substantial Risk for: harm to self, inability to function and rapid decompensation Time Spent With Patient Time: Total time managing care of this patient today __35__ minutes.
[2022-12-04] MEDS: valACYclovir HCL 1,000 MG TABLET 1000 MG PO (15:01)
[2022-12-04] MEDS: polyethylene glycoL 3350 17 GM POWD.PACK PO (16:17)
[2022-12-04 18:00] VITALS: BP 124/70; PULSE 73; RESP 17; TEMP 36.5; O2SAT 94
[2022-12-04] MEDS: Ondansetron ODT 4 MG TAB.RAPDIS TRANSLINGU (19:44)
[2022-12-04] MEDS: OLANZapine 2.5 MG TABLET PO (22:36)
[2022-12-04] MEDS: Melatonin 3 MG TABLET 9 MG PO (22:37)
[2022-12-04] MEDS: traZODone HCL 100 MG TABLET 200 MG PO (22:38)
[2022-12-04] MEDS: LORazepam 1 MG TABLET PO (22:38)
[2022-12-04] MEDS: Nortriptyline HCl 25 MG CAPSULE 50 MG PO (22:38)
[2022-12-04] MEDS: Latanoprost 0.005 % Ophth Sol 2.5 ML DROPS 1 DROP EYE-BOTH (22:39)
--- NOTE | 2022-12-04 22:48 | PC.NURSE ---
pt staying awake tonight for a while, meds given sl later than usual pt still up-lotions and ointments not applied
[2022-12-05] MEDS: hydrOXYzine HCL 25 MG TABLET PO (00:09)
[2022-12-05] MEDS: valACYclovir HCL 1,000 MG TABLET 1000 MG PO ×2 (00:10→14:31)
[2022-12-05] MEDS: Omeprazole 20 MG CAPSULE.DR PO ×2 (06:51→16:49)
[2022-12-05 08:00] VITALS: BP 122/69; PULSE 71; RESP 18; TEMP 36.8; O2SAT 93
[2022-12-05] MEDS: Finasteride 5 MG TABLET PO (08:11)
[2022-12-05] MEDS: lamoTRIgine 25 MG TABLET 150 MG PO ×2 (08:11→21:25)
[2022-12-05] MEDS: Gabapentin 300 MG CAPSULE PO ×3 (08:15→21:24)
[2022-12-05] MEDS: calcium polycarbophiL TABLET 1 TAB PO (08:15)
[2022-12-05] MEDS: Cholecalciferol (Vitamin D3) 10 MCG TABLET PO (08:17)
[2022-12-05] MEDS: amLODIPine Besylate 5 MG TABLET PO (08:17)
[2022-12-05] MEDS: Venlafaxine HCl ER 150 MG CAP.ER.24H PO (08:17)
[2022-12-05] MEDS: Naltrexone HCl 50 MG TABLET PO (08:18)
[2022-12-05] MEDS: Mineral Oil/Petrolatum,White 106 GM Tube 1 APPL TOPICAL ×2 (08:18→21:31)
[2022-12-05] MEDS: Lidocaine 5 % Ointment 35 GM 1 APPL TOPICAL ×3 (08:18→21:31)
[2022-12-05] MEDS: lisinopriL 20 MG TABLET PO (08:18)
[2022-12-05] MEDS: Multivitamin TABLET 1 TAB PO (08:18)
[2022-12-05] MEDS: Tamsulosin HCL 0.4 MG CAPSULE PO (08:20)
[2022-12-05] MEDS: polyethylene glycoL 3350 17 GM POWD.PACK PO (16:49)
--- NOTE | 2022-12-05 17:04 | P.PNPSI_ITS ---
Subjective Subjective Date of Service: 12/05/22 Reason For Visit: Depression hopelessness irritability Subjective Notes: Conditional Voluntary Healthcare Proxy: No Guardianship: No Interim History: Patient had improve night sleep not overly medicated today mood much improved correia affect Medication Compliance: Yes Attending Groups: Yes Review of Systems Improving swallowing difficulties Mental Status Exam Mental Status Exam Patient Appearance: Appropriate Patient Orientation: Person, Place and Situation Level of Consciousness: Awake Patient Behavior: Appropriate and Cooperative Mood Description: Appropriate Affect Description: Constricted and Apprehensive Patient Cognition Impaired: Yes Ability to Follow Directions: Good Speech Pattern: Clear Hallucinations: None Delusions: Not Present Thought Process: Linear Thought Content: positive for Intact, positive for Preoccupation, negative for Suicidal Ideation or negative for Homicidal Ideation Depressive Symptoms: Increased Anxiety, Loss of Int. in Activity and Difficulty Concentrating Judgement: Good Judgement and Insight: Seems improved Better judgment and impulse control more future focused alert Diagnostics Vital Signs (24Hr): Vital Signs - 24 hr 12/04/22 18:00 12/05/22 08:00 Temperature 97.7 F 98.2 F Pulse Rate 73 71 Respiratory Rate 17 18 Blood Pressure 124/70 122/69 Pulse Oximetry 94 93 Oxygen Delivery Method Room Air Room Air BMI result Body Mass Index 30.2 Labs 11/13/22 07:43 11/12/22 09:32 Imaging Radiology Impressions: ITS Impressions Chest X-Ray 10/20/22 15:45 IMPRESSION: 1. Low lung volumes with bibasilar linear disc atelectasis versus scarring. 2. No airspace consolidation or effusion. Head CT 11/08/22 12:29 IMPRESSION: No acute intracranial hemorrhage or territorial infarction. Stable chronic postoperative changes with gliosis and encephalomalacia in the right frontal and right temporal lobes. Ex vacuo dilatation of the ventricles and diffuse parenchymal volume loss. Right-sided craniotomy changes. Chest X-Ray 11/12/22 10:32 IMPRESSION: Hypoexpanded lungs with bibasilar platelike atelectasis. Brain MRI 11/12/22 13:15 IMPRESSION: 1. No demonstrated acute intracranial abnormalities. 2. Chronic encephalomalacia of the right temporal, right frontal, and left occipital lobes. Small regions of chronic encephalomalacia in the parasagittal aspects of the bilateral parietal lobes. Moderate underlying microangiopathy and generalized cerebral volume loss. Chest X-Ray 11/14/22 15:52 IMPRESSION: Low lung volumes, bibasilar subsegmental atelectasis and slight elevation of the right hemidiaphragm similar to previous exam. Modified Barium Swallow 11/21/22 15:11 IMPRESSION: Laryngeal penetration on several occasions but no laryngeal aspiration. Mild retention of solid food in the valleculae which cleared with subsequent oral administration of water or thin barium. Correlate with speech therapy results. Medications Medications Current Medications Acetaminophen (Acetaminophen 325 Mg Tablet) 650 mg PO Q6H PRN PRN Reason: Headache/Pain Mild Scale (1-3) Last Admin: 12/03/22 21:56 Dose: 650 mg Al Hydroxide/Mg Hydroxide (Magnesium Hydrox/Alum Hydrox 30 Ml Oral.Susp) 30 ml PO Q6H PRN PRN Reason: Heartburn/Nausea Last Admin: 11/22/22 21:39 Dose: 30 ml Albuterol Sulfate (Albuterol Sulfate 90 Mcg 8 Gm Inhaler) 2 puff INHALE Q6H PRN PRN Reason: Wheezing Amlodipine Besylate (Amlodipine Besylate 5 Mg Tablet) 5 mg PO DAILY [facility]; Protocol Last Admin: 12/05/22 08:17 Dose: 5 mg Benzocaine (Throat Lozenge, Medicated Lozenge) 1 lozenge MUCOUS MEM Q2H PRN PRN Reason: Sore Throat Last Admin: 11/12/22 03:08 Dose: 1 lozenge Calcium Polycarbophil (Calcium Polycarbophil Tablet) 1 tab PO DAILY [facility] Last Admin: 12/05/22 08:15 Dose: 1 tab Docusate Sodium (Docusate Sodium 100 Mg Capsule) 100 mg PO DAILY PRN PRN Reason: constipation Last Admin: 11/14/22 21:03 Dose: 100 mg Finasteride (Finasteride 5 Mg Tablet) 5 mg PO DAILY [facility] Last Admin: 12/05/22 08:11 Dose: 5 mg Gabapentin (Gabapentin 300 Mg Capsule) 300 mg PO TID [facility] Last Admin: 12/05/22 14:31 Dose: 300 mg Guaifenesin/Dextromethorphan (Guaifenesin Dm 200/20/10 Ml 10 Ml Syrup) 10 ml PO Q4H PRN PRN Reason: Cough Last Admin: 11/20/22 05:31 Dose: 10 ml Hydroxyzine HCl (Hydroxyzine Hcl 25 Mg Tablet) 25 mg PO Q6H PRN PRN Reason: Anxiety Last Admin: 12/05/22 00:09 Dose: 25 mg Lamotrigine (Lamotrigine 25 Mg Tablet) 150 mg PO BID [facility] Last Admin: 12/05/22 08:11 Dose: 150 mg Latanoprost (Latanoprost 0.005 % Ophth No 2.5 Ml Drops) 1 drop EYE-BOTH BEDTIME [facility] Last Admin: 12/04/22 22:39 Dose: 1 drop Lidocaine (Lidocaine 5 % Ointment 35 Gm) 1 appl TOPICAL QID [facility] Last Admin: 12/05/22 16:49 Dose: 1 appl Lisinopril (Lisinopril 20 Mg Tablet) 20 mg PO DAILY [facility]; Protocol Last Admin: 12/05/22 08:18 Dose: 20 mg Lorazepam (Lorazepam 1 Mg Tablet) 1 mg PO BEDTIME [facility] Last Admin: 12/04/22 22:38 Dose: 1 mg Magnesium Hydroxide (Milk Of Magnesia 30 Ml Oral.Susp) 30 ml PO DAILY PRN PRN Reason: Constipation Last Admin: 11/28/22 21:13 Dose: 30 ml Melatonin (Melatonin 3 Mg Tablet) 9 mg PO BEDTIME [facility] Last Admin: 12/04/22 22:37 Dose: 9 mg Multi-Ingred Cream/Lotion/Oil/Oint (Mineral Oil/Petrolatum,White 106 Gm Tube) 1 appl TOPICAL BID [facility]; Protocol Last Admin: 12/05/22 08:18 Dose: 1 appl Multivitamins/Vitamin C (Multivitamin Tablet) 1 tab PO DAILY [facility] Last Admin: 12/05/22 08:18 Dose: 1 tab Naltrexone HCl (Naltrexone Hcl 50 Mg Tablet) 50 mg PO DAILY [facility] Last Admin: 12/05/22 08:18 Dose: 50 mg Nortriptyline HCl (Nortriptyline Hcl 25 Mg Capsule) 50 mg PO BEDTIME [facility] Last Admin: 12/04/22 22:38 Dose: 50 mg Nystatin (Nystatin Powder 15 Gm Bottle) 1 appl TOPICAL BID [facility] Last Admin: 12/05/22 08:19 Dose: Not Given Olanzapine (Olanzapine 2.5 Mg Tablet) 2.5 mg PO BEDTIME [facility] Last Admin: 12/04/22 22:36 Dose: 2.5 mg Omeprazole (Omeprazole 20 Mg Capsule.) 20 mg PO BID@0630,1630 [facility] Last Admin: 12/05/22 16:49 Dose: 20 mg Ondansetron HCl (Ondansetron Odt 4 Mg Tab.Rapdis) 4 mg TRANSLINGU Q6H PRN PRN Reason: Nausea and Vomiting Last Admin: 12/04/22 19:44 Dose: 4 mg Oxybutynin Chloride (Oxybutynin Chloride Er 5 Mg Tab.Er.24) 10 mg PO DAILY [facility] Last Admin: 12/05/22 08:16 Dose: 10 mg Polyethylene Glycol (Polyethylene Glycol 3350 17 Gm Powd.Pack) 17 gm PO DAILY@1600 [facility] Last Admin: 12/05/22 16:49 Dose: 17 gm Psyllium Hydrophilic Mucilloid (Psyllium Seed 3.4 Gm Powd.Pack) 3.4 gm PO DAILY [facility] Last Admin: 12/05/22 08:20 Dose: 3.4 gm Tamsulosin HCl (Tamsulosin Hcl 0.4 Mg Capsule) 0.4 mg PO DAILY [facility] Last Admin: 12/05/22 08:20 Dose: 0.4 mg Trazodone HCl (Trazodone Hcl 100 Mg Tablet) 200 mg PO BEDTIME [facility] Last Admin: 12/04/22 22:38 Dose: 200 mg Trazodone HCl (Trazodone Hcl 50 Mg Tablet) 50 mg PO BEDTIME PRN PRN Reason: Insomnia Last Admin: 12/02/22 23:38 Dose: 50 mg Venlafaxine HCl (Venlafaxine Hcl Er 150 Mg Cap.Er.24h) 150 mg PO DAILY [facility] Last Admin: 12/05/22 08:17 Dose: 150 mg Vitamin D (Cholecalciferol (Vitamin D3) 10 Mcg Tablet) 10 mcg PO DAILY [facility] Last Admin: 12/05/22 08:17 Dose: 10 mcg Allergies Allergies Allergy/AdvReac Type Severity Reaction Status Date / Time fentanyl [FENTANYL] Allergy Intermediate unknown Verified 04/08/22 07:00 Assessment & Plan Assessment & Plan (1) Cognitive and neurobehavioral dysfunction following brain injury: Status: Acute Code(s): G31.89 - Other specified degenerative diseases of nervous system; F09 - Unspecified mental disorder due to known physiological condition; S06.9X9S - Unspecified intracranial injury with loss of consciousness of unspecified duration, sequela (2) Major depressive disorder, recurrent severe without psychotic features: Status: Acute Code(s): F33.2 - Major depressive disorder, recurrent severe without psychotic features (3) Swallowing dysfunction: Status: Acute Code(s): R13.10 - Dysphagia, unspecified Assessment and Plan: See specific swallowing plan Plan The patient is a 67-year-old male, , 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 At this moment also, he has problems of housing since he will not be able to go back to his regular fdc.? The patient has a long history of alcohol use disorder that he was not able to process or work on it.? Plan 1. Continue with the same treatment.? 2. We will work with the executive secretary social welfare and DDS for a proper discharge planning.? 3. Continue with recommendations of Wound Care. 4. Increase Seroquel up to 150 mg po qhs. 10/30/22 restart lorazepam 1 hs prn insomnia norterip inc 100 hs level in 50 s monitor ekg 11/01 continue current tx plan 11/02/22- Bedside Swallow eval. s/p choking episode on 11/01. 2021 Increase Lexapro encourage CBT skills need supportive coaching patient increasingly hopeless helpless denies active self-harm check nortriptyline level 11/05/2022 Check nortriptyline level patient on Seroquel nortriptyline Lexapro.? Needs much reassurance and support the has difficulty interacting at times secondary to a hopelessness irritability passive SI.? Patient has having difficulty maintaining his posture in his chair unclear why this is happening for discuss safety issues with nursing will need OT and potentially Pt input? 11/06/2022 Patient depressed and anxious tried to review cognitive behavioral perspectives ways to emotionally manage current situational factors.? Patient has for an extended period of time had great deal of difficulty with any emotional a mental coping strategies.? Will and lorazepam p.r.n. 0.5 mg to help with anxiety trying get clarity from DTS regarding transition to fdc setting positive reinforcement for patient's efforts at physical conditioning becomes demoralized easily denies active self-harm 11/07 continue tx. 11/08 no changes, pt had unwitnessed fall and hit head, head CT negative 11/09 no changes 11/10 no changes 11/11 no changes 11/12/22 acute med w/u neg incentive spirometer cont medication cbt skills cont pt/ot 11/12 medical workout came back negative. No changes in current treatment 11/14/2022 Patient depressed withdrawn more fatigued 11/18/21 taper lexapro start effexor lower seroquel sec to fatigue 11/19/21 Seroquel lowered inc venlafax 11/21/21 Pt with swallowing problem motor dysfx lower gabapentin lower nortriptyline lower seroquel 11/22 continue tx. 11/23 continue tx. 11/24/2022 More alert with lowered gabapentin nortriptyline lorazepam lower Lamictal to 150 b.i.d. hope to improve patient's balance motor function and consideration swallowing dysfunction can try and taper down on Seroquel in case this is also a contributing factor 11/25/2022 Patient has been active with OT change to venlafaxine from Lexapro and lowering of nortriptyline seems show some improvement Discharge planning continues 11/26/2022 the patient reports worsening his mood being more depressed and anxious. We will discuss the case with Dr. Haskins. 11/27/2022 no changes on mental status, we will keep on the same treatment 11/29 continue current treatment plan 11/30 continue current treatment plan 12/02/2022 Effexor was increased to 112.5 mg Seroquel have been lower to 50 mg and Mirapex discontinued hope being this will improve physical functioning 12/03/2021 Continue Effexor 112 Seroquel 50 at bedtime patient's diet was able to be increased 12/04/2022 Increase Effexor to 150 mg continue physical therapy on the unit reviewed cognitive behavioral and positive supports Stop Seroquel will try olanzapine 2.5 mg at bedtime 12/05/2022 Patient seems improved with increase Effexor and change to olanzapine no further change at this time swallowing improved with chopped diet has discharge planning meeting coming up in 3 days Reason for contiued inpatient stay Substantial Risk for: inability to function, rapid decompensation and med/psych decompensation Time Spent With Patient Time: Total time managing care of this patient today ____ minutes.
[2022-12-05 18:00] VITALS: BP 87/60; PULSE 84; RESP 18; TEMP 36.4; O2SAT 96
[2022-12-05] MEDS: LORazepam 1 MG TABLET PO (19:59)
[2022-12-05 20:00] VITALS: BP 122/70
[2022-12-05] MEDS: Nortriptyline HCl 25 MG CAPSULE 50 MG PO (21:24)
[2022-12-05] MEDS: traZODone HCL 100 MG TABLET 200 MG PO (21:27)
[2022-12-05] MEDS: Melatonin 3 MG TABLET 9 MG PO (21:27)
[2022-12-05] MEDS: OLANZapine 2.5 MG TABLET PO (21:28)
[2022-12-05] MEDS: Nystatin Powder 15 GM BOTTLE 1 APPL TOPICAL (21:31)
[2022-12-05] MEDS: Latanoprost 0.005 % Ophth Sol 2.5 ML DROPS 1 DROP EYE-BOTH (21:46)
[2022-12-06] MEDS: hydrOXYzine HCL 25 MG TABLET PO ×2 (03:36→14:24)
[2022-12-06 06:00] VITALS: BP 100/70; PULSE 88; RESP 16; TEMP 36.8; O2SAT 98
[2022-12-06] MEDS: Omeprazole 20 MG CAPSULE.DR PO (06:03)
[2022-12-06] MEDS: Finasteride 5 MG TABLET PO (09:04)
[2022-12-06] MEDS: calcium polycarbophiL TABLET 1 TAB PO (09:04)
[2022-12-06] MEDS: lamoTRIgine 25 MG TABLET 150 MG PO ×2 (09:04→20:01)
[2022-12-06] MEDS: Naltrexone HCl 50 MG TABLET PO (09:05)
[2022-12-06] MEDS: Multivitamin TABLET 1 TAB PO (09:05)
[2022-12-06] MEDS: Tamsulosin HCL 0.4 MG CAPSULE PO (09:05)
[2022-12-06] MEDS: Gabapentin 300 MG CAPSULE PO ×3 (09:05→20:01)
[2022-12-06] MEDS: Cholecalciferol (Vitamin D3) 10 MCG TABLET PO (09:05)
[2022-12-06] MEDS: Venlafaxine HCl ER 150 MG CAP.ER.24H PO (09:05)
[2022-12-06] MEDS: lisinopriL 20 MG TABLET PO (09:05)
[2022-12-06] MEDS: amLODIPine Besylate 5 MG TABLET PO (09:05)
--- NOTE | 2022-12-06 11:42 | P.PNPSI_ITS ---
Subjective Subjective Date of Service: 12/06/22 Reason For Visit: Depression hopelessness irritability Subjective Notes: Conditional Voluntary Interim History: Patient was seen and discussed in rounds today. Records and plans were reviewed. He has been stable, somewhat anxious her rounds and interaction with another patient yesterday but was able to get help from staff. He is doing better today. No complaints. Eating and sleeping adequately. No changes were made today Review of Systems Review of Systems Yes Unobtainable due to mental status Mental Status Exam Mental Status Exam Patient Appearance: Appropriate Patient Orientation: Person, Place and Situation Level of Consciousness: Awake Patient Behavior: Appropriate and Cooperative Mood Description: Appropriate Affect Description: Constricted and Apprehensive Patient Cognition Impaired: Yes Ability to Follow Directions: Good Speech Pattern: Clear Hallucinations: None Delusions: Not Present Thought Process: Linear Thought Content: positive for Intact, positive for Preoccupation, negative for Suicidal Ideation or negative for Homicidal Ideation Depressive Symptoms: Increased Anxiety, Loss of Int. in Activity and Difficulty Concentrating Judgement: Good Judgement and Insight: Seems improved Better judgment and impulse control more future focused alert Diagnostics Vital Signs (24Hr): Vital Signs - 24 hr 12/05/22 18:00 12/05/22 20:00 12/06/22 06:00 Temperature 97.6 F 98.2 F Pulse Rate 84 88 Respiratory Rate 18 16 Blood Pressure 87/60 L 122/70 100/70 Pulse Oximetry 96 98 Oxygen Delivery Method Room Air BMI result Body Mass Index 30.2 Labs 11/13/22 07:43 11/12/22 09:32 Imaging Radiology Impressions: ITS Impressions Chest X-Ray 10/20/22 15:45 IMPRESSION: 1. Low lung volumes with bibasilar linear disc atelectasis versus scarring. 2. No airspace consolidation or effusion. Head CT 11/08/22 12:29 IMPRESSION: No acute intracranial hemorrhage or territorial infarction. Stable chronic postoperative changes with gliosis and encephalomalacia in the right frontal and right temporal lobes. Ex vacuo dilatation of the ventricles and diffuse parenchymal volume loss. Right-sided craniotomy changes. Chest X-Ray 11/12/22 10:32 IMPRESSION: Hypoexpanded lungs with bibasilar platelike atelectasis. Brain MRI 11/12/22 13:15 IMPRESSION: 1. No demonstrated acute intracranial abnormalities. 2. Chronic encephalomalacia of the right temporal, right frontal, and left occipital lobes. Small regions of chronic encephalomalacia in the parasagittal aspects of the bilateral parietal lobes. Moderate underlying microangiopathy and generalized cerebral volume loss. Chest X-Ray 11/14/22 15:52 IMPRESSION: Low lung volumes, bibasilar subsegmental atelectasis and slight elevation of the right hemidiaphragm similar to previous exam. Modified Barium Swallow 11/21/22 15:11 IMPRESSION: Laryngeal penetration on several occasions but no laryngeal aspiration. Mild retention of solid food in the valleculae which cleared with subsequent oral administration of water or thin barium. Correlate with speech therapy results. Medications Medications Current Medications Acetaminophen (Acetaminophen 325 Mg Tablet) 650 mg PO Q6H PRN PRN Reason: Headache/Pain Mild Scale (1-3) Last Admin: 12/03/22 21:56 Dose: 650 mg Al Hydroxide/Mg Hydroxide (Magnesium Hydrox/Alum Hydrox 30 Ml Oral.Susp) 30 ml PO Q6H PRN PRN Reason: Heartburn/Nausea Last Admin: 11/22/22 21:39 Dose: 30 ml Albuterol Sulfate (Albuterol Sulfate 90 Mcg 8 Gm Inhaler) 2 puff INHALE Q6H PRN PRN Reason: Wheezing Amlodipine Besylate (Amlodipine Besylate 5 Mg Tablet) 5 mg PO DAILY [facility]; Protocol Last Admin: 12/06/22 09:05 Dose: 5 mg Benzocaine (Throat Lozenge, Medicated Lozenge) 1 lozenge MUCOUS MEM Q2H PRN PRN Reason: Sore Throat Last Admin: 11/12/22 03:08 Dose: 1 lozenge Calcium Polycarbophil (Calcium Polycarbophil Tablet) 1 tab PO DAILY [facility] Last Admin: 12/06/22 09:04 Dose: 1 tab Docusate Sodium (Docusate Sodium 100 Mg Capsule) 100 mg PO DAILY PRN PRN Reason: constipation Last Admin: 11/14/22 21:03 Dose: 100 mg Finasteride (Finasteride 5 Mg Tablet) 5 mg PO DAILY [facility] Last Admin: 12/06/22 09:04 Dose: 5 mg Gabapentin (Gabapentin 300 Mg Capsule) 300 mg PO TID [facility] Last Admin: 12/06/22 09:05 Dose: 300 mg Guaifenesin/Dextromethorphan (Guaifenesin Dm 200/20/10 Ml 10 Ml Syrup) 10 ml PO Q4H PRN PRN Reason: Cough Last Admin: 11/20/22 05:31 Dose: 10 ml Hydroxyzine HCl (Hydroxyzine Hcl 25 Mg Tablet) 25 mg PO Q6H PRN PRN Reason: Anxiety Last Admin: 12/06/22 03:36 Dose: 25 mg Lamotrigine (Lamotrigine 25 Mg Tablet) 150 mg PO BID TAZ Last Admin: 12/06/22 09:04 Dose: 150 mg Latanoprost (Latanoprost 0.005 % Ophth No 2.5 Ml Drops) 1 drop EYE-BOTH BEDTIME TAZ Last Admin: 12/05/22 21:46 Dose: 1 drop Lidocaine (Lidocaine 5 % Ointment 35 Gm) 1 appl TOPICAL QID TAZ Last Admin: 12/06/22 09:05 Dose: Not Given Lisinopril (Lisinopril 20 Mg Tablet) 20 mg PO DAILY TAZ; Protocol Last Admin: 12/06/22 09:05 Dose: 20 mg Lorazepam (Lorazepam 1 Mg Tablet) 1 mg PO BEDTIME TAZ Last Admin: 12/05/22 19:59 Dose: 1 mg Magnesium Hydroxide (Milk Of Magnesia 30 Ml Oral.Susp) 30 ml PO DAILY PRN PRN Reason: Constipation Last Admin: 11/28/22 21:13 Dose: 30 ml Melatonin (Melatonin 3 Mg Tablet) 9 mg PO BEDTIME TAZ Last Admin: 12/05/22 21:27 Dose: 9 mg Multi-Ingred Cream/Lotion/Oil/Oint (Mineral Oil/Petrolatum,White 106 Gm Tube) 1 appl TOPICAL BID TAZ; Protocol Last Admin: 12/06/22 09:28 Dose: Not Given Multivitamins/Vitamin C (Multivitamin Tablet) 1 tab PO DAILY TAZ Last Admin: 12/06/22 09:05 Dose: 1 tab Naltrexone HCl (Naltrexone Hcl 50 Mg Tablet) 50 mg PO DAILY TAZ Last Admin: 12/06/22 09:05 Dose: 50 mg Nortriptyline HCl (Nortriptyline Hcl 25 Mg Capsule) 50 mg PO BEDTIME TAZ Last Admin: 12/05/22 21:24 Dose: 50 mg Nystatin (Nystatin Powder 15 Gm Bottle) 1 appl TOPICAL BID TAZ Last Admin: 12/06/22 09:28 Dose: Not Given Olanzapine (Olanzapine 2.5 Mg Tablet) 2.5 mg PO BEDTIME TAZ Last Admin: 12/05/22 21:28 Dose: 2.5 mg Omeprazole (Omeprazole 20 Mg Capsule.Dr) 20 mg PO BID@0630,1630 [facility] Last Admin: 12/06/22 06:03 Dose: 20 mg Ondansetron HCl (Ondansetron Odt 4 Mg Tab.Rapdis) 4 mg TRANSLINGU Q6H PRN PRN Reason: Nausea and Vomiting Last Admin: 12/04/22 19:44 Dose: 4 mg Oxybutynin Chloride (Oxybutynin Chloride Er 5 Mg Tab.Er.24) 10 mg PO DAILY [facility] Last Admin: 12/06/22 09:04 Dose: 10 mg Polyethylene Glycol (Polyethylene Glycol 3350 17 Gm Powd.Pack) 17 gm PO DAILY@1600 [facility] Last Admin: 12/05/22 16:49 Dose: 17 gm Psyllium Hydrophilic Mucilloid (Psyllium Seed 3.4 Gm Powd.Pack) 3.4 gm PO DAILY [facility] Last Admin: 12/06/22 09:04 Dose: 3.4 gm Tamsulosin HCl (Tamsulosin Hcl 0.4 Mg Capsule) 0.4 mg PO DAILY [facility] Last Admin: 12/06/22 09:05 Dose: 0.4 mg Trazodone HCl (Trazodone Hcl 100 Mg Tablet) 200 mg PO BEDTIME [facility] Last Admin: 12/05/22 21:27 Dose: 200 mg Trazodone HCl (Trazodone Hcl 50 Mg Tablet) 50 mg PO BEDTIME PRN PRN Reason: Insomnia Last Admin: 12/02/22 23:38 Dose: 50 mg Venlafaxine HCl (Venlafaxine Hcl Er 150 Mg Cap.Er.24h) 150 mg PO DAILY [facility] Last Admin: 12/06/22 09:05 Dose: 150 mg Vitamin D (Cholecalciferol (Vitamin D3) 10 Mcg Tablet) 10 mcg PO DAILY [facility] Last Admin: 12/06/22 09:05 Dose: 10 mcg Allergies Allergies Allergy/AdvReac Type Severity Reaction Status Date / Time fentanyl [FENTANYL] Allergy Intermediate unknown Verified 04/08/22 07:00 Assessment & Plan Assessment & Plan (1) Cognitive and neurobehavioral dysfunction following brain injury: Status: Acute Code(s): G31.89 - Other specified degenerative diseases of nervous system; F09 - Unspecified mental disorder due to known physiological condition; S06.9X9S - Unspecified intracranial injury with loss of consciousness of unspecified duration, sequela (2) Major depressive disorder, recurrent severe without psychotic features: Status: Acute Code(s): F33.2 - Major depressive disorder, recurrent severe without psychotic features (3) Swallowing dysfunction: Status: Acute Code(s): R13.10 - Dysphagia, unspecified Assessment and Plan: See specific swallowing plan Plan The patient is a 67-year-old male, , 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 At this moment also, he has problems of housing since he will not be able to go back to his regular shelter.? The patient has a long history of alcohol use disorder that he was not able to process or work on it.? Plan 1. Continue with the same treatment.? 2. We will work with the social security benefits interviewer and DDS for a proper discharge planning.? 3. Continue with recommendations of Wound Care. 4. Increase Seroquel up to 150 mg po qhs. 10/30/22 restart lorazepam 1 hs prn insomnia norterip inc 100 hs level in 50 s monitor ekg 11/01 continue current tx plan 11/02/22- Bedside Swallow eval. s/p choking episode on 11/01. 2021 Increase Lexapro encourage CBT skills need supportive coaching patient increasingly hopeless helpless denies active self-harm check nortriptyline level 11/05/2022 Check nortriptyline level patient on Seroquel nortriptyline Lexapro.? Needs much reassurance and support the has difficulty interacting at times secondary to a hopelessness irritability passive SI.? Patient has having difficulty maintaining his posture in his chair unclear why this is happening for discuss safety issues with nursing will need OT and potentially Pt input? 11/06/2022 Patient depressed and anxious tried to review cognitive behavioral perspectives ways to emotionally manage current situational factors.? Patient has for an extended period of time had great deal of difficulty with any emotional a mental coping strategies.? Will and lorazepam p.r.n. 0.5 mg to help with anxiety trying get clarity from DTS regarding transition to shelter setting positive reinforcement for patient's efforts at physical conditioning becomes demoralized easily denies active self-harm 11/07 continue tx. 11/08 no changes, pt had unwitnessed fall and hit head, head CT negative 11/09 no changes 11/10 no changes 11/11 no changes 11/12/22 acute med w/u neg incentive spirometer cont medication cbt skills cont pt/ot 11/12 medical workout came back negative. No changes in current treatment 11/14/2022 Patient depressed withdrawn more fatigued 11/18/21 taper lexapro start effexor lower seroquel sec to fatigue 11/19/21 Seroquel lowered inc venlafax 11/21/21 Pt with swallowing problem motor dysfx lower gabapentin lower nortriptyline lower seroquel 11/22 continue tx. 11/23 continue tx. 11/24/2022 More alert with lowered gabapentin nortriptyline lorazepam lower Lamictal to 150 b.i.d. hope to improve patient's balance motor function and consideration swallowing dysfunction can try and taper down on Seroquel in case this is also a contributing factor 11/25/2022 Patient has been active with OT change to venlafaxine from Lexapro and lowering of nortriptyline seems show some improvement Discharge planning continues 11/26/2022 the patient reports worsening his mood being more depressed and anxious. We will discuss the case with Dr. Haskins. 11/27/2022 no changes on mental status, we will keep on the same treatment 11/29 continue current treatment plan 11/30 continue current treatment plan 12/02/2022 Effexor was increased to 112.5 mg Seroquel have been lower to 50 mg and Mirapex discontinued hope being this will improve physical functioning 12/03/2021 Continue Effexor 112 Seroquel 50 at bedtime patient's diet was able to be increased 12/04/2022 Increase Effexor to 150 mg continue physical therapy on the unit reviewed cognitive behavioral and positive supports Stop Seroquel will try olanzapine 2.5 mg at bedtime 12/05/2022 Patient seems improved with increase Effexor and change to olanzapine no further change at this time swallowing improved with chopped diet has discharge planning meeting coming up in 3 days 12/06: Continue current regimen and plans Reason for contiued inpatient stay Substantial Risk for: inability to function Time Spent With Patient Time: Total time managing care of this patient today ____ minutes.
[2022-12-06] MEDS: polyethylene glycoL 3350 17 GM POWD.PACK PO (14:24)
[2022-12-06] MEDS: Docusate Sodium 100 MG CAPSULE PO (14:24)
[2022-12-06 18:00] VITALS: BP 102/69; PULSE 87; RESP 16; TEMP 36.3; O2SAT 96
[2022-12-06] MEDS: traZODone HCL 100 MG TABLET 200 MG PO (20:01)
[2022-12-06] MEDS: Nortriptyline HCl 25 MG CAPSULE 50 MG PO (20:01)
[2022-12-06] MEDS: LORazepam 1 MG TABLET PO (20:02)
[2022-12-06] MEDS: Melatonin 3 MG TABLET 9 MG PO (20:02)
[2022-12-06] MEDS: OLANZapine 2.5 MG TABLET PO (20:02)
[2022-12-06] MEDS: Latanoprost 0.005 % Ophth Sol 2.5 ML DROPS 1 DROP EYE-BOTH (20:02)
[2022-12-06] MEDS: Nystatin Powder 15 GM BOTTLE 1 APPL TOPICAL (20:04)
[2022-12-06] MEDS: Mineral Oil/Petrolatum,White 106 GM Tube 1 APPL TOPICAL (20:04)
[2022-12-06] MEDS: Lidocaine 5 % Ointment 35 GM 1 APPL TOPICAL (20:05)
[2022-12-07] MEDS: Omeprazole 20 MG CAPSULE.DR PO ×2 (04:29→16:35)
[2022-12-07 09:05] VITALS: BP 124/67; PULSE 79; RESP 20; TEMP 26.1; O2SAT 95
[2022-12-07] MEDS: calcium polycarbophiL TABLET 1 TAB PO (09:12)
[2022-12-07] MEDS: Finasteride 5 MG TABLET PO (09:13)
[2022-12-07] MEDS: Naltrexone HCl 50 MG TABLET PO (09:14)
[2022-12-07] MEDS: Venlafaxine HCl ER 150 MG CAP.ER.24H PO (09:16)
[2022-12-07] MEDS: lamoTRIgine 25 MG TABLET 150 MG PO ×2 (09:17→22:11)
[2022-12-07] MEDS: lisinopriL 20 MG TABLET PO (09:18)
[2022-12-07] MEDS: Gabapentin 300 MG CAPSULE PO ×3 (09:19→22:13)
[2022-12-07] MEDS: amLODIPine Besylate 5 MG TABLET PO (09:19)
[2022-12-07] MEDS: Tamsulosin HCL 0.4 MG CAPSULE PO (09:19)
[2022-12-07] MEDS: Docusate Sodium 100 MG CAPSULE PO (09:26)
[2022-12-07] MEDS: Acetaminophen 325 MG TABLET 650 MG PO ×3 (09:26→22:14)
[2022-12-07] MEDS: hydrOXYzine HCL 25 MG TABLET PO ×2 (09:26→15:41)
[2022-12-07] MEDS: Cholecalciferol (Vitamin D3) 10 MCG TABLET PO (09:31)
--- NOTE | 2022-12-07 10:43 | P.PNPSI_ITS ---
Subjective Subjective Date of Service: 12/07/22 Reason For Visit: Depression hopelessness irritability Subjective Notes: Conditional Voluntary Interim History: Patient was seen and discussed in rounds today. Records and plans were reviewed. He has been has been doing better and had a better day. He continues to be awaiting placement. No episodes of yelling. No behavioral issues. Eating and sleeping adequately. No complaints or side effects. No changes were made today Medication Compliance: Yes Side effects from medications: No Attending Groups: Yes Review of Systems Review of Systems Yes Unobtainable due to mental status Mental Status Exam Mental Status Exam Patient Appearance: Appropriate Patient Orientation: Person, Place and Situation Level of Consciousness: Awake Patient Behavior: Appropriate and Cooperative Mood Description: Appropriate Affect Description: Constricted and Apprehensive Patient Cognition Impaired: Yes Ability to Follow Directions: Good Speech Pattern: Clear Hallucinations: None Delusions: Not Present Thought Process: Linear Thought Content: positive for Intact, positive for Preoccupation, negative for Suicidal Ideation or negative for Homicidal Ideation Depressive Symptoms: Increased Anxiety, Loss of Int. in Activity and Difficulty Concentrating Judgement: Good Judgement and Insight: Seems improved Better judgment and impulse control more future focused alert Diagnostics Vital Signs (24Hr): Vital Signs - 24 hr 12/06/22 18:00 12/07/22 09:05 Temperature 97.4 F 79 F L Pulse Rate 87 79 Respiratory Rate 16 20 Blood Pressure 102/69 124/67 Pulse Oximetry 96 95 Oxygen Delivery Method Room Air Room Air BMI result Body Mass Index 30.2 Labs 11/13/22 07:43 11/12/22 09:32 Imaging Radiology Impressions: ITS Impressions Chest X-Ray 10/20/22 15:45 IMPRESSION: 1. Low lung volumes with bibasilar linear disc atelectasis versus scarring. 2. No airspace consolidation or effusion. Head CT 11/08/22 12:29 IMPRESSION: No acute intracranial hemorrhage or territorial infarction. Stable chronic postoperative changes with gliosis and encephalomalacia in the right frontal and right temporal lobes. Ex vacuo dilatation of the ventricles and diffuse parenchymal volume loss. Right-sided craniotomy changes. Chest X-Ray 11/12/22 10:32 IMPRESSION: Hypoexpanded lungs with bibasilar platelike atelectasis. Brain MRI 11/12/22 13:15 IMPRESSION: 1. No demonstrated acute intracranial abnormalities. 2. Chronic encephalomalacia of the right temporal, right frontal, and left occipital lobes. Small regions of chronic encephalomalacia in the parasagittal aspects of the bilateral parietal lobes. Moderate underlying microangiopathy and generalized cerebral volume loss. Chest X-Ray 11/14/22 15:52 IMPRESSION: Low lung volumes, bibasilar subsegmental atelectasis and slight elevation of the right hemidiaphragm similar to previous exam. Modified Barium Swallow 11/21/22 15:11 IMPRESSION: Laryngeal penetration on several occasions but no laryngeal aspiration. Mild retention of solid food in the valleculae which cleared with subsequent oral administration of water or thin barium. Correlate with speech therapy results. Medications Medications Current Medications Acetaminophen (Acetaminophen 325 Mg Tablet) 650 mg PO Q6H PRN PRN Reason: Headache/Pain Mild Scale (1-3) Last Admin: 12/07/22 09:26 Dose: 650 mg Al Hydroxide/Mg Hydroxide (Magnesium Hydrox/Alum Hydrox 30 Ml Oral.Susp) 30 ml PO Q6H PRN PRN Reason: Heartburn/Nausea Last Admin: 11/22/22 21:39 Dose: 30 ml Albuterol Sulfate (Albuterol Sulfate 90 Mcg 8 Gm Inhaler) 2 puff INHALE Q6H PRN PRN Reason: Wheezing Amlodipine Besylate (Amlodipine Besylate 5 Mg Tablet) 5 mg PO DAILY [facility]; Protocol Last Admin: 12/07/22 09:19 Dose: 5 mg Benzocaine (Throat Lozenge, Medicated Lozenge) 1 lozenge MUCOUS MEM Q2H PRN PRN Reason: Sore Throat Last Admin: 11/12/22 03:08 Dose: 1 lozenge Calcium Polycarbophil (Calcium Polycarbophil Tablet) 1 tab PO DAILY [facility] Last Admin: 12/07/22 09:12 Dose: 1 tab Docusate Sodium (Docusate Sodium 100 Mg Capsule) 100 mg PO DAILY PRN PRN Reason: constipation Last Admin: 12/07/22 09:26 Dose: 100 mg Finasteride (Finasteride 5 Mg Tablet) 5 mg PO DAILY [facility] Last Admin: 12/07/22 09:13 Dose: 5 mg Gabapentin (Gabapentin 300 Mg Capsule) 300 mg PO TID [facility] Last Admin: 12/07/22 09:19 Dose: 300 mg Guaifenesin/Dextromethorphan (Guaifenesin Dm 200/20/10 Ml 10 Ml Syrup) 10 ml PO Q4H PRN PRN Reason: Cough Last Admin: 11/20/22 05:31 Dose: 10 ml Hydroxyzine HCl (Hydroxyzine Hcl 25 Mg Tablet) 25 mg PO Q6H PRN PRN Reason: Anxiety Last Admin: 12/07/22 09:26 Dose: 25 mg Lamotrigine (Lamotrigine 25 Mg Tablet) 150 mg PO BID TAZ Last Admin: 12/07/22 09:17 Dose: 150 mg Latanoprost (Latanoprost 0.005 % Ophth No 2.5 Ml Drops) 1 drop EYE-BOTH BEDTIME TAZ Last Admin: 12/06/22 20:02 Dose: 1 drop Lidocaine (Lidocaine 5 % Ointment 35 Gm) 1 appl TOPICAL QID [facility] Last Admin: 12/06/22 20:05 Dose: 1 appl Lisinopril (Lisinopril 20 Mg Tablet) 20 mg PO DAILY [facility]; Protocol Last Admin: 12/07/22 09:18 Dose: 20 mg Lorazepam (Lorazepam 1 Mg Tablet) 1 mg PO BEDTIME TAZ Last Admin: 12/06/22 20:02 Dose: 1 mg Magnesium Hydroxide (Milk Of Magnesia 30 Ml Oral.Susp) 30 ml PO DAILY PRN PRN Reason: Constipation Last Admin: 11/28/22 21:13 Dose: 30 ml Melatonin (Melatonin 3 Mg Tablet) 9 mg PO BEDTIME TAZ Last Admin: 12/06/22 20:02 Dose: 9 mg Multi-Ingred Cream/Lotion/Oil/Oint (Mineral Oil/Petrolatum,White 106 Gm Tube) 1 appl TOPICAL BID TAZ; Protocol Last Admin: 12/06/22 20:04 Dose: 1 appl Multivitamins/Vitamin C (Multivitamin Tablet) 1 tab PO DAILY TAZ Last Admin: 12/06/22 09:05 Dose: 1 tab Naltrexone HCl (Naltrexone Hcl 50 Mg Tablet) 50 mg PO DAILY TAZ Last Admin: 12/07/22 09:14 Dose: 50 mg Nortriptyline HCl (Nortriptyline Hcl 25 Mg Capsule) 50 mg PO BEDTIME TAZ Last Admin: 12/06/22 20:01 Dose: 50 mg Nystatin (Nystatin Powder 15 Gm Bottle) 1 appl TOPICAL BID TAZ Last Admin: 12/06/22 20:04 Dose: 1 appl Olanzapine (Olanzapine 2.5 Mg Tablet) 2.5 mg PO BEDTIME [facility] Last Admin: 12/06/22 20:02 Dose: 2.5 mg Omeprazole (Omeprazole 20 Mg Capsule.Dr) 20 mg PO BID@0630,1630 [facility] Last Admin: 12/07/22 04:29 Dose: 20 mg Ondansetron HCl (Ondansetron Odt 4 Mg Tab.Rapdis) 4 mg TRANSLINGU Q6H PRN PRN Reason: Nausea and Vomiting Last Admin: 12/04/22 19:44 Dose: 4 mg Oxybutynin Chloride (Oxybutynin Chloride Er 5 Mg Tab.Er.24) 10 mg PO DAILY [facility] Last Admin: 12/07/22 09:15 Dose: 10 mg Polyethylene Glycol (Polyethylene Glycol 3350 17 Gm Powd.Pack) 17 gm PO DAILY@1600 [facility] Last Admin: 12/06/22 14:24 Dose: 17 gm Psyllium Hydrophilic Mucilloid (Psyllium Seed 3.4 Gm Powd.Pack) 3.4 gm PO DAILY [facility] Last Admin: 12/07/22 09:21 Dose: 3.4 gm Tamsulosin HCl (Tamsulosin Hcl 0.4 Mg Capsule) 0.4 mg PO DAILY [facility] Last Admin: 12/07/22 09:19 Dose: 0.4 mg Trazodone HCl (Trazodone Hcl 100 Mg Tablet) 200 mg PO BEDTIME [facility] Last Admin: 12/06/22 20:01 Dose: 200 mg Trazodone HCl (Trazodone Hcl 50 Mg Tablet) 50 mg PO BEDTIME PRN PRN Reason: Insomnia Last Admin: 12/02/22 23:38 Dose: 50 mg Venlafaxine HCl (Venlafaxine Hcl Er 150 Mg Cap.Er.24h) 150 mg PO DAILY [facility] Last Admin: 12/07/22 09:16 Dose: 150 mg Vitamin D (Cholecalciferol (Vitamin D3) 10 Mcg Tablet) 10 mcg PO DAILY [facility] Last Admin: 12/07/22 09:31 Dose: 10 mcg Allergies Allergies Allergy/AdvReac Type Severity Reaction Status Date / Time fentanyl [FENTANYL] Allergy Intermediate unknown Verified 04/08/22 07:00 Assessment & Plan Assessment & Plan (1) Cognitive and neurobehavioral dysfunction following brain injury: Status: Acute Code(s): G31.89 - Other specified degenerative diseases of nervous system; F09 - Unspecified mental disorder due to known physiological condition; S06.9X9S - Unspecified intracranial injury with loss of consciousness of unspecified duration, sequela (2) Major depressive disorder, recurrent severe without psychotic features: Status: Acute Code(s): F33.2 - Major depressive disorder, recurrent severe without psychotic features (3) Swallowing dysfunction: Status: Acute Code(s): R13.10 - Dysphagia, unspecified Assessment and Plan: See specific swallowing plan Plan The patient is a 67-year-old male, , on his psi after TBI with a long history of depression with suicidal ideation with several prior a dmissions into this facility with a similar presentation.? At this moment also, he has problems of housing since he will not be able to go back to his regular intermediate.? The patient has a long history of alcohol use disorder that he was not able to process or work on it.? Plan 1. Continue with the same treatment.? 2. We will work with the case management social worker and DDS for a proper discharge planning.? 3. Continue with recommendations of Wound Care. 4. Increase Seroquel up to 150 mg po qhs. 10/30/22 restart lorazepam 1 hs prn insomnia norterip inc 100 hs level in 50 s monitor ekg 11/01 continue current tx plan 11/02/22- Bedside Swallow eval. s/p choking episode on 11/01. 2021 Increase Lexapro encourage CBT skills need supportive coaching patient increasingly hopeless helpless denies active self-harm check nortriptyline level 11/05/2022 Check nortriptyline level patient on Seroquel nortriptyline Lexapro.? Needs much reassurance and support the has difficulty interacting at times secondary to a hopelessness irritability passive SI.? Patient has having difficulty maintaining his posture in his chair unclear why this is happening for discuss safety issues with nursing will need OT and potentially Pt input? 11/06/2022 Patient depressed and anxious tried to review cognitive behavioral perspectives ways to emotionally manage current situational factors.? Patient has for an extended period of time had great deal of difficulty with any emotional a mental coping strategies.? Will and lorazepam p.r.n. 0.5 mg to help with anxiety trying get clarity from DTS regarding transition to intermediate setting positive reinforcement for patient's efforts at physical conditioning becomes demoralized easily denies active self-harm 11/07 continue tx. 11/08 no changes, pt had unwitnessed fall and hit head, head CT negative 11/09 no changes 11/10 no changes 11/11 no changes 11/12/22 acute med w/u neg incentive spirometer cont medication cbt skills cont pt/ot 11/12 medical workout came back negative. No changes in current treatment 11/14/2022 Patient depressed withdrawn more fatigued 11/18/21 taper lexapro start effexor lower seroquel sec to fatigue 11/19/21 Seroquel lowered inc venlafax 11/21/21 Pt with swallowing problem motor dysfx lower gabapentin lower nortriptyline lower seroquel 11/22 continue tx. 11/23 continue tx. 11/24/2022 More alert with lowered gabapentin nortriptyline lorazepam lower Lamictal to 150 b.i.d. hope to improve patient's balance motor function and consideration swallowing dysfunction can try and taper down on Seroquel in case this is also a contributing factor 11/25/2022 Patient has been active with OT change to venlafaxine from Lexapro and lowering of nortriptyline seems show some improvement Discharge planning continues 11/26/2022 the patient reports worsening his mood being more depressed and anxious. We will discuss the case with Dr. Haskins. 11/27/2022 no changes on mental status, we will keep on the same treatment 11/29 continue current treatment plan 11/30 continue current treatment plan 12/02/2022 Effexor was increased to 112.5 mg Seroquel have been lower to 50 mg and Mirapex discontinued hope being this will improve physical functioning 12/03/2021 Continue Effexor 112 Seroquel 50 at bedtime patient's diet was able to be increased 12/04/2022 Increase Effexor to 150 mg continue physical therapy on the unit reviewed cognitive behavioral and positive supports Stop Seroquel will try olanzapine 2.5 mg at bedtime 12/05/2022 Patient seems improved with increase Effexor and change to olanzapine no further change at this time swallowing improved with chopped diet has discharge planning meeting coming up in 3 days 12/06: Continue current regimen and plans 12/07: Continue current plans and regimen Reason for contiued inpatient stay Substantial Risk for: med/psych decompensation Time Spent With Patient Time: Total time managing care of this patient today ____ minutes.
[2022-12-07] MEDS: Multivitamin TABLET 1 TAB PO (11:57)
[2022-12-07] MEDS: polyethylene glycoL 3350 17 GM POWD.PACK PO (15:38)
[2022-12-07] MEDS: Lidocaine 5 % Ointment 35 GM 1 APPL TOPICAL ×2 (16:15→22:17)
[2022-12-07 18:00] VITALS: BP 133/71; PULSE 76; RESP 18; TEMP 36.6; O2SAT 94
[2022-12-07] MEDS: Melatonin 3 MG TABLET 9 MG PO (22:09)
[2022-12-07] MEDS: OLANZapine 2.5 MG TABLET PO (22:10)
[2022-12-07] MEDS: Nortriptyline HCl 25 MG CAPSULE 50 MG PO (22:12)
[2022-12-07] MEDS: LORazepam 1 MG TABLET PO (22:12)
[2022-12-07] MEDS: traZODone HCL 100 MG TABLET 200 MG PO (22:14)
[2022-12-07] MEDS: Nystatin Powder 15 GM BOTTLE 1 APPL TOPICAL (22:16)
[2022-12-07] MEDS: Mineral Oil/Petrolatum,White 106 GM Tube 1 APPL TOPICAL (22:16)
[2022-12-07] MEDS: Latanoprost 0.005 % Ophth Sol 2.5 ML DROPS 1 DROP EYE-BOTH (22:17)
[2022-12-08] MEDS: hydrOXYzine HCL 25 MG TABLET PO ×3 (01:58→22:02)
[2022-12-08] MEDS: traZODone HCL 50 MG TABLET PO (02:03)
[2022-12-08] MEDS: Omeprazole 20 MG CAPSULE.DR PO ×2 (06:18→16:03)
[2022-12-08 08:15] VITALS: BP 138/78; PULSE 81; RESP 18; TEMP 36.1; O2SAT 94
[2022-12-08] MEDS: Finasteride 5 MG TABLET PO (08:22)
[2022-12-08] MEDS: lamoTRIgine 25 MG TABLET 150 MG PO ×2 (08:22→22:02)
[2022-12-08] MEDS: lisinopriL 20 MG TABLET PO (08:25)
[2022-12-08] MEDS: Venlafaxine HCl ER 150 MG CAP.ER.24H PO (08:26)
[2022-12-08] MEDS: Tamsulosin HCL 0.4 MG CAPSULE PO (08:26)
[2022-12-08] MEDS: Naltrexone HCl 50 MG TABLET PO (08:26)
[2022-12-08] MEDS: Gabapentin 300 MG CAPSULE PO ×3 (08:26→22:01)
[2022-12-08] MEDS: Mineral Oil/Petrolatum,White 106 GM Tube 1 APPL TOPICAL (08:27)
[2022-12-08] MEDS: Cholecalciferol (Vitamin D3) 10 MCG TABLET PO (08:27)
[2022-12-08] MEDS: amLODIPine Besylate 5 MG TABLET PO (08:27)
[2022-12-08] MEDS: Multivitamin TABLET 1 TAB PO (08:27)
[2022-12-08] MEDS: Nystatin Powder 15 GM BOTTLE 1 APPL TOPICAL (08:28)
[2022-12-08] MEDS: Lidocaine 5 % Ointment 35 GM 1 APPL TOPICAL ×2 (08:28→22:03)
[2022-12-08] MEDS: calcium polycarbophiL TABLET 1 TAB PO (08:35)
[2022-12-08] MEDS: polyethylene glycoL 3350 17 GM POWD.PACK PO (16:07)
[2022-12-08] MEDS: Acetaminophen 325 MG TABLET 650 MG PO (22:01)
[2022-12-08] MEDS: Ondansetron ODT 4 MG TAB.RAPDIS TRANSLINGU (22:01)
[2022-12-08] MEDS: LORazepam 1 MG TABLET PO (22:02)
[2022-12-08] MEDS: Nortriptyline HCl 25 MG CAPSULE 50 MG PO (22:02)
[2022-12-08] MEDS: traZODone HCL 100 MG TABLET 200 MG PO (22:02)
[2022-12-08] MEDS: Docusate Sodium 100 MG CAPSULE PO (22:02)
[2022-12-08] MEDS: OLANZapine 2.5 MG TABLET PO (22:03)
[2022-12-08] MEDS: Melatonin 3 MG TABLET 9 MG PO (22:03)
[2022-12-08] MEDS: Latanoprost 0.005 % Ophth Sol 2.5 ML DROPS 1 DROP EYE-BOTH (22:04)
[2022-12-08 22:20] VITALS: BP 147/72; PULSE 76; RESP 18; TEMP 36.2; O2SAT 97
--- NOTE | 2022-12-08 22:33 | PC.NURSE ---
Pt declined to have a dressing applied to sacrum.
[2022-12-09] MEDS: hydrOXYzine HCL 25 MG TABLET PO ×2 (03:55→12:28)
[2022-12-09 08:10] VITALS: BP 140/80; PULSE 71; RESP 18; TEMP 36.4; O2SAT 98
[2022-12-09] MEDS: Tamsulosin HCL 0.4 MG CAPSULE PO (08:22)
[2022-12-09] MEDS: lamoTRIgine 25 MG TABLET 150 MG PO ×2 (08:22→22:26)
[2022-12-09] MEDS: calcium polycarbophiL TABLET 1 TAB PO (08:25)
[2022-12-09] MEDS: Venlafaxine HCl ER 150 MG CAP.ER.24H PO (08:25)
[2022-12-09] MEDS: lisinopriL 20 MG TABLET PO (08:26)
[2022-12-09] MEDS: amLODIPine Besylate 5 MG TABLET PO (08:26)
[2022-12-09] MEDS: Gabapentin 300 MG CAPSULE PO ×3 (08:26→22:30)
[2022-12-09] MEDS: Cholecalciferol (Vitamin D3) 10 MCG TABLET PO (08:26)
[2022-12-09] MEDS: Naltrexone HCl 50 MG TABLET PO (08:26)
[2022-12-09] MEDS: Omeprazole 20 MG CAPSULE.DR PO ×2 (08:26→16:27)
[2022-12-09] MEDS: Multivitamin TABLET 1 TAB PO (08:27)
[2022-12-09] MEDS: Finasteride 5 MG TABLET PO (08:31)
[2022-12-09] MEDS: Mineral Oil/Petrolatum,White 106 GM Tube 1 APPL TOPICAL ×2 (08:32→22:38)
[2022-12-09] MEDS: Lidocaine 5 % Ointment 35 GM 1 APPL TOPICAL ×3 (08:32→23:06)
[2022-12-09] MEDS: polyethylene glycoL 3350 17 GM POWD.PACK PO (14:32)
--- NOTE | 2022-12-09 15:12 | MHC.SL.SWA ---
Speech Pathologist Impression: Risk of Aspiration Due to: Neurological Condition Reduced Cognition Dysphasia Diet Status: Recommend Patient continue on Chopped/Advanced diet (NDD3) with individualized access to Cereal with milk, fruit salad cup, soft breads, cakes, muffins, sandwiches with ground textures (e.g. chicken or tuna salad). Continue with thin liquids, pills whole with puree or liquid, as preferred by patient. Provide ample liquid with pill administration. Liquid Consistency and Strategies for Safe Swallow: Liquid Intake Recommendation: Thin Liquid Intake Strategies: No Straws Double Swallow Solid Food Consistency: Dietary Recommendations: Chopped/Advanced (NDD3) Additional Modifications to Solid Foods: Cue patient to double swallow (dry swallow), particularly on sticky or harder to chew consistencies. Alternate liquids and solids. Oral Medication Intake: Whole with Liquid Please contact the pharmacy regarding appropriate crushable or liquid drug formulations that are available whenever modified delivery is recommended. Compensatory Strategies and Precautions to be Taken for Safe Swallow: Sitting Upright (90 deg) Double Swallow No Straw Small Bites and Sips Alternate Liquids/Solids Rate of Ingestion Change Avoid Specific Foods Supervision While Eating and Drinking for Safe Swallow: Total Supervision (1:1) Foods to Avoid: Hard to chew solids (e.g. solid pieces of meat), dry consistencies that break into pieces (e.g. cookies, crackers, chips), mixed solid consistencies that require ample chewing (e.g. green salads), rice. Swallowing Recommended Treatments: Compens. Strategy Educat. Recommendation for Speech: Inpatient Speech Therapy Comment: Prior to seeing patient today, WEL[employer] TE[employer] contacted RD in order for individualization of current Chopped/Advanced diet, allowing patient to access: Cereal with milk, fruit salad cup, soft breads, cakes, muffins, sandwiches with ground textures (e.g. chicken or tuna salad), all of which were requested by RD with [employer]. Patient was seen at lunch, he and staff were informed of this increased range of food options. Patient was eating lunch at the time, had a Ham [place] (not on list of liberalized food choices), Ham was noted to be in large chunk of meat with ample mustard. Patient was observed eating this consistency, required cuing to not talk while eating, double swallow, and alternate with liquids. With this cuing he was successful ingesting this sandwich, however it would not be advised for him to have this harder meat consistency for a meal in the future, given documented issues with harder solid consistencies and choking risk. Patient again had many questions about why he was having difficulty with swallowing, and was again given explanation that it was not a sudden onset but like due to both his neurological status and aging. Patient expressed interest in having a repeat MBSS, he was advised that this would not be indicated so soon after the most recent study, but could be repeated in two to three months. Behavior continues to indicate patient is attempting to negotiate/deny/avoid swallowing needs. Recommend Patient continue on Chopped/Advanced diet (NDD3) with individualized access to the foods indicated at the top of this note, with thin liquids, pills whole with puree or liquid, as preferred by patient. Provide ample liquid with pill administration. ASPIRATION PRECAUTIONS: -Continue total 1:1 supervision during PO intake, provide pt w/ cues as needed -Take small bites of food -Moisten food with sauces and gravies, ensuring sauces are mixed and blended in well with food -Chew food well -Avoid hard to chew solids, sticky textures, mixed consistencies, and foods that break up into small pieces (rice, popcorn, nuts) -Follow each bite with 2-3 additional dry swallow to promote pharyngeal clearance -After dry swallows, take sips of liquid to promote pharyngeal clearance -Take small, individual sips of liquid -Avoid taking consecutive sips -Avoid the use of straws -Follow sips with a throat clear then dry swallow -Maintain upright 90 degree position while eating and drinking and for at least 45 minutes afterwards -Ensure a rigorous daily oral care routine before first meal and after each subsequent meal Frequency/Duration: Date Range for Service Req: Timeline to reassess: Tin Tie Machine Operator Automatic Clinican/Clinical Fellow: No Supervisory Statement: I have reviewed and agree with the student/clinical fellow's documentation: N/A Speech Language Pathologist: Sarah Cotter M.A., CCC-[employer]
--- NOTE | 2022-12-09 17:37 | P.PNPSI_ITS ---
Subjective Subjective Date of Service: 12/09/22 Reason For Visit: Depression hopelessness irritability Subjective Notes: Conditional Voluntary Interim History: Patient somewhat anxious dysphoric difficulty maintaining hopefulness although seems improved on Effexor and since Seroquel gabapentin lowered improve swallowing Mental Status Exam Mental Status Exam Patient Appearance: Appropriate Patient Orientation: Person, Place and Situation Level of Consciousness: Awake Patient Behavior: Appropriate and Cooperative Mood Description: Appropriate Affect Description: Constricted and Apprehensive Patient Cognition Impaired: Yes Ability to Follow Directions: Good Speech Pattern: Clear Hallucinations: None Delusions: Not Present Thought Process: Linear Thought Content: positive for Intact, positive for Preoccupation, negative for Suicidal Ideation or negative for Homicidal Ideation Depressive Symptoms: Increased Anxiety, Loss of Int. in Activity and Difficulty Concentrating Judgement: Good Judgement and Insight: Seems improved Better judgment and impulse control more future focused alert Diagnostics Vital Signs (24Hr): Vital Signs - 24 hr 12/08/22 22:20 12/09/22 08:10 Temperature 97.2 F 97.6 F Pulse Rate 76 71 Respiratory Rate 18 18 Blood Pressure 147/72 H 140/80 H Pulse Oximetry 97 98 Oxygen Delivery Method Room Air Room Air BMI result Body Mass Index 30.2 Labs 11/13/22 07:43 11/12/22 09:32 Imaging Radiology Impressions: ITS Impressions Chest X-Ray 10/20/22 15:45 IMPRESSION: 1. Low lung volumes with bibasilar linear disc atelectasis versus scarring. 2. No airspace consolidation or effusion. Head CT 11/08/22 12:29 IMPRESSION: No acute intracranial hemorrhage or territorial infarction. Stable chronic postoperative changes with gliosis and encephalomalacia in the right frontal and right temporal lobes. Ex vacuo dilatation of the ventricles and diffuse parenchymal volume loss. Right-sided craniotomy changes. Chest X-Ray 11/12/22 10:32 IMPRESSION: Hypoexpanded lungs with bibasilar platelike atelectasis. Brain MRI 11/12/22 13:15 IMPRESSION: 1. No demonstrated acute intracranial abnormalities. 2. Chronic encephalomalacia of the right temporal, right frontal, and left occipital lobes. Small regions of chronic encephalomalacia in the parasagittal aspects of the bilateral parietal lobes. Moderate underlying microangiopathy and generalized cerebral volume loss. Chest X-Ray 11/14/22 15:52 IMPRESSION: Low lung volumes, bibasilar subsegmental atelectasis and slight elevation of the right hemidiaphragm similar to previous exam. Modified Barium Swallow 11/21/22 15:11 IMPRESSION: Laryngeal penetration on several occasions but no laryngeal aspiration. Mild retention of solid food in the valleculae which cleared with subsequent oral administration of water or thin barium. Correlate with speech therapy results. Medications Medications Current Medications Acetaminophen (Acetaminophen 325 Mg Tablet) 650 mg PO Q6H PRN PRN Reason: Headache/Pain Mild Scale (1-3) Last Admin: 12/08/22 22:01 Dose: 650 mg Al Hydroxide/Mg Hydroxide (Magnesium Hydrox/Alum Hydrox 30 Ml Oral.Susp) 30 ml PO Q6H PRN PRN Reason: Heartburn/Nausea Last Admin: 11/22/22 21:39 Dose: 30 ml Albuterol Sulfate (Albuterol Sulfate 90 Mcg 8 Gm Inhaler) 2 puff INHALE Q6H PRN PRN Reason: Wheezing Amlodipine Besylate (Amlodipine Besylate 5 Mg Tablet) 5 mg PO DAILY [facility]; Protocol Last Admin: 12/09/22 08:26 Dose: 5 mg Benzocaine (Throat Lozenge, Medicated Lozenge) 1 lozenge MUCOUS MEM Q2H PRN PRN Reason: Sore Throat Last Admin: 11/12/22 03:08 Dose: 1 lozenge Calcium Polycarbophil (Calcium Polycarbophil Tablet) 1 tab PO DAILY [facility] Last Admin: 12/09/22 08:25 Dose: 1 tab Docusate Sodium (Docusate Sodium 100 Mg Capsule) 100 mg PO DAILY PRN PRN Reason: constipation Last Admin: 12/08/22 22:02 Dose: 100 mg Finasteride (Finasteride 5 Mg Tablet) 5 mg PO DAILY [facility] Last Admin: 12/09/22 08:31 Dose: 5 mg Gabapentin (Gabapentin 300 Mg Capsule) 300 mg PO TID [facility] Last Admin: 12/09/22 14:32 Dose: 300 mg Guaifenesin/Dextromethorphan (Guaifenesin Dm 200/20/10 Ml 10 Ml Syrup) 10 ml PO Q4H PRN PRN Reason: Cough Last Admin: 11/20/22 05:31 Dose: 10 ml Hydroxyzine HCl (Hydroxyzine Hcl 25 Mg Tablet) 25 mg PO Q6H PRN PRN Reason: Anxiety Last Admin: 12/09/22 12:28 Dose: 25 mg Lamotrigine (Lamotrigine 25 Mg Tablet) 150 mg PO BID [facility] Last Admin: 12/09/22 08:22 Dose: 150 mg Latanoprost (Latanoprost 0.005 % Ophth No 2.5 Ml Drops) 1 drop [facility] Last Admin: 12/08/22 22:04 Dose: 1 drop Lidocaine (Lidocaine 5 % Ointment 35 Gm) 1 appl TOPICAL QID [facility] Last Admin: 12/09/22 12:18 Dose: 1 appl Lisinopril (Lisinopril 20 Mg Tablet) 20 mg PO DAILY [facility]; Protocol Last Admin: 12/09/22 08:26 Dose: 20 mg Lorazepam (Lorazepam 1 Mg Tablet) 1 mg PO BEDTIME [facility] Last Admin: 12/08/22 22:02 Dose: 1 mg Lorazepam (Lorazepam 0.5 Mg Tablet) 0.5 mg PO Q4H PRN PRN Reason: Anxiety Magnesium Hydroxide (Milk Of Magnesia 30 Ml Oral.Susp) 30 ml PO DAILY PRN PRN Reason: Constipation Last Admin: 11/28/22 21:13 Dose: 30 ml Melatonin (Melatonin 3 Mg Tablet) 9 mg PO BEDTIME [facility] Last Admin: 12/08/22 22:03 Dose: 9 mg Multi-Ingred Cream/Lotion/Oil/Oint (Mineral Oil/Petrolatum,White 106 Gm Tube) 1 appl TOPICAL BID [facility]; Protocol Last Admin: 12/09/22 08:32 Dose: 1 appl Multivitamins/Vitamin C (Multivitamin Tablet) 1 tab PO DAILY [facility] Last Admin: 12/09/22 08:27 Dose: 1 tab Naltrexone HCl (Naltrexone Hcl 50 Mg Tablet) 50 mg PO DAILY [facility] Last Admin: 12/09/22 08:26 Dose: 50 mg Nortriptyline HCl (Nortriptyline Hcl 25 Mg Capsule) 50 mg PO BEDTIME [facility] Last Admin: 12/08/22 22:02 Dose: 50 mg Nystatin (Nystatin Powder 15 Gm Bottle) 1 appl TOPICAL BID [facility] Last Admin: 12/09/22 08:28 Dose: Not Given Olanzapine (Olanzapine 2.5 Mg Tablet) 2.5 mg PO BEDTIME [facility] Last Admin: 12/08/22 22:03 Dose: 2.5 mg Omeprazole (Omeprazole 20 Mg Capsule.Dr) 20 mg PO BID@0630,1630 [facility] Last Admin: 12/09/22 16:27 Dose: 20 mg Ondansetron HCl (Ondansetron Odt 4 Mg Tab.Rapdis) 4 mg TRANSLINGU Q6H PRN PRN Reason: Nausea and Vomiting Last Admin: 12/08/22 22:01 Dose: 4 mg Oxybutynin Chloride (Oxybutynin Chloride Er 5 Mg Tab.Er.24) 10 mg PO DAILY [facility] Last Admin: 12/09/22 08:21 Dose: 10 mg Polyethylene Glycol (Polyethylene Glycol 3350 17 Gm Powd.Pack) 17 gm PO DAILY@1600 [facility] Last Admin: 12/09/22 14:32 Dose: 17 gm Psyllium Hydrophilic Mucilloid (Psyllium Seed 3.4 Gm Powd.Pack) 3.4 gm PO DAILY [facility] Last Admin: 12/09/22 08:31 Dose: 3.4 gm Tamsulosin HCl (Tamsulosin Hcl 0.4 Mg Capsule) 0.4 mg PO DAILY [facility] Last Admin: 12/09/22 08:22 Dose: 0.4 mg Trazodone HCl (Trazodone Hcl 100 Mg Tablet) 200 mg PO BEDTIME [facility] Last Admin: 12/08/22 22:02 Dose: 200 mg Trazodone HCl (Trazodone Hcl 50 Mg Tablet) 50 mg PO BEDTIME PRN PRN Reason: Insomnia Last Admin: 12/08/22 02:03 Dose: 50 mg Venlafaxine HCl (Venlafaxine Hcl Er 150 Mg Cap.Er.24h) 150 mg PO DAILY [facility] Last Admin: 12/09/22 08:25 Dose: 150 mg Vitamin D (Cholecalciferol (Vitamin D3) 10 Mcg Tablet) 10 mcg PO DAILY [facility] Last Admin: 12/09/22 08:26 Dose: 10 mcg Allergies Allergies Allergy/AdvReac Type Severity Reaction Status Date / Time fentanyl [FENTANYL] Allergy Intermediate unknown Verified 04/08/22 07:00 Assessment & Plan Assessment & Plan (1) Cognitive and neurobehavioral dysfunction following brain injury: Status: Acute Code(s): G31.89 - Other specified degenerative diseases of nervous system; F09 - Unspecified mental disorder due to known physiological condition; S06.9X9S - Unspecified intracranial injury with loss of consciousness of unspecified durati on, sequela (2) Major depressive disorder, recurrent severe without psychotic features: Status: Acute Code(s): F33.2 - Major depressive disorder, recurrent severe without psychotic features (3) Swallowing dysfunction: Status: Acute Code(s): R13.10 - Dysphagia, unspecified Assessment and Plan: See specific swallowing plan Plan The patient is a 67-year-old male, , 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 At this moment also, he has problems of housing since he will not be able to [facility] back to his regular [facility].? The patient has a long history of alcohol use disorder that he was not able to process or work on it.? Plan 1. Continue with the same treatment.? 2. We will work with the addiction social worker and DDS for a proper discharge planning.? 3. Continue with recommendations of Wound Care. 4. Increase Seroquel up to 150 mg po qhs. 10/30/22 restart lorazepam 1 hs prn insomnia norterip inc 100 hs level in 50 s monitor ekg 11/01 continue current tx plan 11/02/22- Bedside Swallow eval. s/p choking episode on 11/01. 2021 Increase Lexapro encourage CBT skills need supportive coaching patient increasingly hopeless helpless denies active self-harm check nortriptyline level 11/05/2022 Check nortriptyline level patient on Seroquel nortriptyline Lexapro.? Needs much reassurance and support the has difficulty interacting at times secondary to a hopelessness irritability passive SI.? Patient has having difficulty maintaining his posture in his chair unclear why this is happening for discuss safety issues with nursing will need OT and potentially Pt input? 11/06/2022 Patient depressed and anxious tried to review cognitive behavioral perspectives ways to emotionally manage current situational factors.? Patient has for an extended period of time had great deal of difficulty with any emotional a mental coping strategies.? Will and lorazepam p.r.n. 0.5 mg to help with anxiety tryi ng get clarity from [facility] regarding transition to [facility] setting positive reinforcement for patient's efforts at physical conditioning becomes demoralized easily denies active self-harm 11/07 continue tx. 11/08 no changes, pt had unwitnessed fall and hit head, head CT negative 11/09 no changes 11/10 no changes 11/11 no changes 11/12/22 acute med w/u neg incentive spirometer cont medication cbt skills cont pt/ot 11/12 medical workout came back negative. No changes in current treatment 11/14/2022 Patient depressed withdrawn more fatigued 11/18/21 taper lexapro start effexor lower seroquel sec to fatigue 11/19/21 Seroquel lowered inc venlafax 11/21/21 Pt with swallowing problem motor dysfx lower gabapentin lower nortriptyline lower seroquel 11/22 continue tx. 11/23 continue tx. 11/24/2022 More alert with lowered gabapentin nortriptyline lorazepam lower Lamictal to 150 b.i.d. hope to improve patient's balance motor function and consideration swallowing dysfunction can try and taper down on Seroquel in case this is also a contributing factor 11/25/2022 Patient has been active with OT change to venlafaxine from Lexapro and lowering of nortriptyline seems show some improvement Discharge planning continues 11/26/2022 the patient reports worsening his mood being more depressed and anxi ous. We will discuss the case with Dr. Haskins. 11/27/2022 no changes on mental status, we will keep on the same treatment 11/29 continue current treatment plan 11/30 continue current treatment plan 12/02/2022 Effexor was increased to 112.5 mg Seroquel have been lower to 50 mg and Mirapex discontinued hope being this will improve physical functioning 12/03/2021 Continue Effexor 112 Seroquel 50 at bedtime patient's diet was able to be increased 12/04/2022 Increase Effexor to 150 mg continue physical therapy on the unit reviewed cognitive behavioral and positive supports Stop Seroquel will try olanzapine 2.5 mg at bedtime 12/05/2022 Patient seems improved with increase Effexor and change to olanzapine no further change at this time swallowing improved with chopped diet has discharge planning meeting coming up in 3 days 12/06: Continue current regimen and plans 12/07: Continue current plans and regime 12/08/22 Continue Effexor encourage lower doses of medication to decrease \sedation improves following Continue discharge planning help with transition to [facility] setting Reason for contiued inpatient stay Substantial Risk for: harm to self and rapid decompensation Time Spent With Patient Time: Total time managing care of this patient today ____ minutes.
[2022-12-09 18:00] VITALS: BP 117/73; PULSE 77; RESP 16; TEMP 36.6; O2SAT 97
[2022-12-09] MEDS: LORazepam 0.5 MG TABLET PO (20:00)
[2022-12-09] MEDS: Nortriptyline HCl 25 MG CAPSULE 50 MG PO (22:29)
[2022-12-09] MEDS: Ondansetron ODT 4 MG TAB.RAPDIS TRANSLINGU (22:31)
[2022-12-09] MEDS: traZODone HCL 100 MG TABLET 200 MG PO (22:32)
[2022-12-09] MEDS: LORazepam 1 MG TABLET PO (22:32)
[2022-12-09] MEDS: OLANZapine 2.5 MG TABLET PO (22:32)
[2022-12-09] MEDS: Melatonin 3 MG TABLET 9 MG PO (22:34)
[2022-12-09] MEDS: Latanoprost 0.005 % Ophth Sol 2.5 ML DROPS 1 DROP EYE-BOTH (22:35)
[2022-12-09] MEDS: Nystatin Powder 15 GM BOTTLE 1 APPL TOPICAL (22:44)
[2022-12-10] MEDS: Acetaminophen 325 MG TABLET 650 MG PO ×2 (04:50→15:39)
[2022-12-10] MEDS: Omeprazole 20 MG CAPSULE.DR PO ×2 (04:52→15:40)
[2022-12-10] MEDS: Ondansetron ODT 4 MG TAB.RAPDIS TRANSLINGU (04:53)
[2022-12-10] MEDS: hydrOXYzine HCL 25 MG TABLET PO (04:53)
[2022-12-10] MEDS: Finasteride 5 MG TABLET PO (08:45)
[2022-12-10] MEDS: Tamsulosin HCL 0.4 MG CAPSULE PO (08:46)
[2022-12-10] MEDS: Gabapentin 300 MG CAPSULE PO ×3 (08:46→22:17)
[2022-12-10] MEDS: Naltrexone HCl 50 MG TABLET PO (08:46)
[2022-12-10] MEDS: Multivitamin TABLET 1 TAB PO (08:47)
[2022-12-10] MEDS: Cholecalciferol (Vitamin D3) 10 MCG TABLET PO (08:47)
[2022-12-10] MEDS: lisinopriL 20 MG TABLET PO (08:47)
[2022-12-10] MEDS: calcium polycarbophiL TABLET 1 TAB PO (08:47)
[2022-12-10] MEDS: lamoTRIgine 25 MG TABLET 150 MG PO ×2 (08:48→22:13)
[2022-12-10] MEDS: Venlafaxine HCl ER 150 MG CAP.ER.24H PO (08:49)
[2022-12-10] MEDS: amLODIPine Besylate 5 MG TABLET PO (08:49)
[2022-12-10 08:54] VITALS: BP 121/73; PULSE 66; RESP 18; TEMP 35.8; O2SAT 96
[2022-12-10] MEDS: LORazepam 0.5 MG TABLET PO (15:39)
[2022-12-10] MEDS: polyethylene glycoL 3350 17 GM POWD.PACK PO (17:37)
[2022-12-10 18:00] VITALS: BP 118/66; PULSE 84; RESP 18; TEMP 36.5; O2SAT 94
[2022-12-10] MEDS: Melatonin 3 MG TABLET 9 MG PO (22:12)
[2022-12-10] MEDS: Nortriptyline HCl 25 MG CAPSULE 50 MG PO (22:15)
[2022-12-10] MEDS: traZODone HCL 100 MG TABLET 200 MG PO (22:16)
[2022-12-10] MEDS: OLANZapine 2.5 MG TABLET PO (22:17)
[2022-12-10] MEDS: LORazepam 1 MG TABLET PO (22:17)
[2022-12-10] MEDS: Latanoprost 0.005 % Ophth Sol 2.5 ML DROPS 1 DROP EYE-BOTH (22:24)
[2022-12-10] MEDS: Mineral Oil/Petrolatum,White 106 GM Tube 1 APPL TOPICAL (22:25)
[2022-12-10] MEDS: Nystatin Powder 15 GM BOTTLE 1 APPL TOPICAL (22:26)
[2022-12-10] MEDS: Docusate Sodium 100 MG CAPSULE PO (22:41)
[2022-12-11 04:05] VITALS: BP 100/59; PULSE 60; RESP 16; O2SAT 95
[2022-12-11 04:06] VITALS: BP 98/58; PULSE 60; RESP 16; O2SAT 95
[2022-12-11] MEDS: Acetaminophen 325 MG TABLET 650 MG PO ×3 (04:12→22:12)
[2022-12-11] MEDS: LORazepam 0.5 MG TABLET PO ×3 (04:12→20:33)
[2022-12-11 06:00] VITALS: BP 100/62; TEMP 36.8; O2SAT 98
[2022-12-11] MEDS: Omeprazole 20 MG CAPSULE.DR PO ×2 (06:49→16:31)
[2022-12-11] MEDS: Finasteride 5 MG TABLET PO (09:33)
[2022-12-11] MEDS: Venlafaxine HCl ER 150 MG CAP.ER.24H PO (09:34)
[2022-12-11] MEDS: Multivitamin TABLET 1 TAB PO (09:34)
[2022-12-11] MEDS: amLODIPine Besylate 5 MG TABLET PO (09:34)
[2022-12-11] MEDS: Naltrexone HCl 50 MG TABLET PO (09:34)
[2022-12-11] MEDS: calcium polycarbophiL TABLET 1 TAB PO (09:34)
[2022-12-11] MEDS: lisinopriL 20 MG TABLET PO (09:34)
[2022-12-11] MEDS: Cholecalciferol (Vitamin D3) 10 MCG TABLET PO (09:34)
[2022-12-11] MEDS: lamoTRIgine 25 MG TABLET 150 MG PO ×2 (09:34→22:09)
[2022-12-11] MEDS: Tamsulosin HCL 0.4 MG CAPSULE PO (09:35)
[2022-12-11] MEDS: Gabapentin 300 MG CAPSULE PO ×3 (09:35→22:12)
--- NOTE | 2022-12-11 10:09 | HO.PSYCHPN ---
Subjective Subjective Date of Service: 12/11/22 Reason For Visit: Depression hopelessness irritability Subjective Notes: Conditional Voluntary Interim History: Pt reports receiving sad news about deterioration of his older brother who has advanced dementia. Pt reports having suicidal thoughts after news. Pt upset about multiple loses in his life and feeling hopeless. Pt describes appropriate grieving feeling, but this emotions distress is such that quickly turns into suicidal thoughts. Pt with difficulty being empathic about others on the unit. Pt reports broken sleep, crying intermittently during the night. Per nursing, pt had episode of threatening to punch peers who was being loud but pt reports to me today that he has enough control not to do it. Medication Compliance: Yes Side effects from medications: No Attending Groups: Intermittent Review of Systems Review of Systems Yes Unobtainable due to mental condition and Unobtainable due to mental status Mental Status Exam Mental Status Exam Patient Appearance: Appropriate Patient Orientation: Person, Place and Situation Level of Consciousness: Awake Patient Behavior: Appropriate and Cooperative Mood Description: Appropriate Affect Description: Constricted and Apprehensive Patient Cognition Impaired: Yes Ability to Follow Directions: Good Speech Pattern: Clear Memory Description: Episodic Impaired and Working Impaired Diagnostics Vital Signs (24Hr): Vital Signs - 24 hr 12/11/22 18:00 12/12/22 09:44 Temperature 97.4 F 97.6 F Pulse Rate 72 88 Respiratory Rate 18 18 Blood Pressure 120/68 128/67 Pulse Oximetry 94 98 Oxygen Delivery Method Room Air Room Air BMI result Body Mass Index 30.2 Labs 11/13/22 07:43 11/12/22 09:32 Imaging Radiology Impressions: ITS Impressions Chest X-Ray 10/20/22 15:45 IMPRESSION: 1. Low lung volumes with bibasilar linear disc atelectasis versus scarring. 2. No airspace consolidation or effusion. Head CT 11/08/22 12:29 IMPRESSION: No acute intracranial hemorrhage or territorial infarction. Stable chronic postoperative changes with gliosis and encephalomalacia in the right frontal and right temporal lobes. Ex vacuo dilatation of the ventricles and diffuse parenchymal volume loss. Right-sided craniotomy changes. Chest X-Ray 11/12/22 10:32 IMPRESSION: Hypoexpanded lungs with bibasilar platelike atelectasis. Brain MRI 11/12/22 13:15 IMPRESSION: 1. No demonstrated acute intracranial abnormalities. 2. Chronic encephalomalacia of the right temporal, right frontal, and left occipital lobes. Small regions of chronic encephalomalacia in the parasagittal aspects of the bilateral parietal lobes. Moderate underlying microangiopathy and generalized cerebral volume loss. Chest X-Ray 11/14/22 15:52 IMPRESSION: Low lung volumes, bibasilar subsegmental atelectasis and slight elevation of the right hemidiaphragm similar to previous exam. Modified Barium Swallow 11/21/22 15:11 IMPRESSION: Laryngeal penetration on several occasions but no laryngeal aspiration. Mild retention of solid food in the valleculae which cleared with subsequent oral administration of water or thin barium. Correlate with speech therapy results. Medications Medications Current Medications Acetaminophen (Acetaminophen 325 Mg Tablet) 650 mg PO Q6H PRN PRN Reason: Headache/Pain Mild Scale (1-3) Last Admin: 12/11/22 22:12 Dose: 650 mg Al Hydroxide/Mg Hydroxide (Magnesium Hydrox/Alum Hydrox 30 Ml Oral.Susp) 30 ml PO Q6H PRN PRN Reason: Heartburn/Nausea Last Admin: 11/22/22 21:39 Dose: 30 ml Albuterol Sulfate (Albuterol Sulfate 90 Mcg 8 Gm Inhaler) 2 puff INHALE Q6H PRN PRN Reason: Wheezing Amlodipine Besylate (Amlodipine Besylate 5 Mg Tablet) 5 mg PO DAILY [facility]; Protocol Last Admin: 12/11/22 09:34 Dose: 5 mg Benzocaine (Throat Lozenge, Medicated Lozenge) 1 lozenge MUCOUS MEM Q2H PRN PRN Reason: Sore Throat Last Admin: 11/12/22 03:08 Dose: 1 lozenge Calcium Polycarbophil (Calcium Polycarbophil Tablet) 1 tab PO DAILY [facility] Last Admin: 12/11/22 09:34 Dose: 1 tab Docusate Sodium (Docusate Sodium 100 Mg Capsule) 100 mg PO DAILY PRN PRN Reason: constipation Last Admin: 12/10/22 22:41 Dose: 100 mg Finasteride (Finasteride 5 Mg Tablet) 5 mg PO DAILY [facility] Last Admin: 12/11/22 09:33 Dose: 5 mg Gabapentin (Gabapentin 300 Mg Capsule) 300 mg PO TID [facility] Last Admin: 12/11/22 22:12 Dose: 300 mg Guaifenesin/Dextromethorphan (Guaifenesin Dm 200/20/10 Ml 10 Ml Syrup) 10 ml PO Q4H PRN PRN Reason: Cough Last Admin: 11/20/22 05:31 Dose: 10 ml Hydroxyzine HCl (Hydroxyzine Hcl 25 Mg Tablet) 25 mg PO Q6H PRN PRN Reason: Anxiety Last Admin: 12/10/22 04:53 Dose: 25 mg Lamotrigine (Lamotrigine 25 Mg Tablet) 150 mg PO BID [facility] Last Admin: 12/11/22 22:09 Dose: 150 mg Latanoprost (Latanoprost 0.005 % Ophth No 2.5 Ml Drops) 1 drop EYE-BOTH BEDTIME TAZ Last Admin: 12/11/22 22:13 Dose: 1 drop Lidocaine (Lidocaine 5 % Ointment 35 Gm) 1 appl TOPICAL QID [facility] Last Admin: 12/11/22 22:13 Dose: Not Given Lisinopril (Lisinopril 20 Mg Tablet) 20 mg PO DAILY [facility]; Protocol Last Admin: 12/11/22 09:34 Dose: 20 mg Lorazepam (Lorazepam 1 Mg Tablet) 1 mg PO BEDTIME TAZ Last Admin: 12/11/22 22:13 Dose: 1 mg Lorazepam (Lorazepam 0.5 Mg Tablet) 0.5 mg PO Q4H PRN PRN Reason: Anxiety Last Admin: 12/11/22 20:33 Dose: 0.5 mg Magnesium Hydroxide (Milk Of Magnesia 30 Ml Oral.Susp) 30 ml PO DAILY PRN PRN Reason: Constipation Last Admin: 11/28/22 21:13 Dose: 30 ml Melatonin (Melatonin 3 Mg Tablet) 9 mg PO BEDTIME TAZ Last Admin: 12/11/22 22:11 Dose: 9 mg Multi-Ingred Cream/Lotion/Oil/Oint (Mineral Oil/Petrolatum,White 106 Gm Tube) 1 appl TOPICAL BID [facility]; Protocol Last Admin: 12/11/22 22:13 Dose: Not Given Multivitamins/Vitamin C (Multivitamin Tablet) 1 tab PO DAILY [facility] Last Admin: 12/11/22 09:34 Dose: 1 tab Naltrexone HCl (Naltrexone Hcl 50 Mg Tablet) 50 mg PO DAILY [facility] Last Admin: 12/11/22 09:34 Dose: 50 mg Nortriptyline HCl (Nortriptyline Hcl 25 Mg Capsule) 50 mg PO BEDTIME TAZ Last Admin: 12/11/22 22:10 Dose: 50 mg Olanzapine (Olanzapine 2.5 Mg Tablet) 2.5 mg PO BEDTIME [facility] Last Admin: 12/11/22 22:11 Dose: 2.5 mg Omeprazole (Omeprazole 20 Mg Capsule.Dr) 20 mg PO BID@0630,1630 [facility] Last Admin: 12/12/22 06:16 Dose: 20 mg Ondansetron HCl (Ondansetron Odt 4 Mg Tab.Rapdis) 4 mg TRANSLINGU Q6H PRN PRN Reason: Nausea and Vomiting Last Admin: 12/10/22 04:53 Dose: 4 mg Oxybutynin Chloride (Oxybutynin Chloride Er 5 Mg Tab.Er.24) 10 mg PO DAILY [facility] Last Admin: 12/11/22 09:33 Dose: 10 mg Polyethylene Glycol (Polyethylene Glycol 3350 17 Gm Powd.Pack) 17 gm PO DAILY@1600 [facility] Last Admin: 12/11/22 16:30 Dose: 17 gm Psyllium Hydrophilic Mucilloid (Psyllium Seed 3.4 Gm Powd.Pack) 3.4 gm PO DAILY [facility] Last Admin: 12/11/22 09:39 Dose: 3.4 gm Tamsulosin HCl (Tamsulosin Hcl 0.4 Mg Capsule) 0.4 mg PO DAILY [facility] Last Admin: 12/11/22 09:35 Dose: 0.4 mg Trazodone HCl (Trazodone Hcl 100 Mg Tablet) 200 mg PO BEDTIME [facility] Last Admin: 12/11/22 22:11 Dose: 200 mg Trazodone HCl (Trazodone Hcl 50 Mg Tablet) 50 mg PO BEDTIME PRN PRN Reason: Insomnia Last Admin: 12/08/22 02:03 Dose: 50 mg Venlafaxine HCl (Venlafaxine Hcl Er 150 Mg Cap.Er.24h) 150 mg PO DAILY [facility] Last Admin: 12/11/22 09:34 Dose: 150 mg Vitamin D (Cholecalciferol (Vitamin D3) 10 Mcg Tablet) 10 mcg PO DAILY [facility] Last Admin: 12/11/22 09:34 Dose: 10 mcg Allergies Allergies Allergy/AdvReac Type Severity Reaction Status Date / Time fentanyl [FENTANYL] Allergy Intermediate unknown Verified 04/08/22 07:00 Assessment & Plan Assessment & Plan (1) Cognitive and neurobehavioral dysfunction following brain injury: Status: Acute Code(s): G31.89 - Other specified degenerative diseases of nervous system; F09 - Unspecified mental disorder due to known physiological condition; S06.9X9S - Unspecified intracranial injury with loss of consciousness of unspecified duration, sequela (2) Major depressive disorder, recurrent severe without psychotic features: Status: Acute Code(s): F33.2 - Major depressive disorder, recurrent severe without psychotic features (3) Swallowing dysfunction: Status: Acute Code(s): R13.10 - Dysphagia, unspecified Assessment and Plan: See specific swallowing plan Plan The patient is a 67-year-old male, , 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 At this moment also, he has problems of housing since he will not be able to go back to his regular [facility].? The patient has a long history of alcohol use disorder that he was not able to process or work on it.? Plan 1. Continue with the same treatment.? 2. We will work with the social worker masters and DDS for a proper discharge planning.? 3. Continue with recommendations of Wound Care. 4. Increase Seroquel up to 150 mg po qhs. 10/30/22 restart lorazepam 1 hs prn insomnia norterip inc 100 hs level in 50 s monitor ekg 11/01 continue current tx plan 11/02/22- Bedside Swallow eval. s/p choking episode on 11/01. 2021 Increase Lexapro encourage CBT skills need supportive coaching patient increasingly hopeless helpless denies active self-harm check nortriptyline level 11/05/2022 Check nortriptyline level patient on Seroquel nortriptyline Lexapro.? Needs much reassurance and support the has difficulty interacting at times secondary to a hopelessness irritability passive SI.? Patient has having difficulty maintaining his posture in his chair unclear why this is happening for discuss safety issues with nursing will need OT and potentially Pt input? 11/06/2022 Patient depressed and anxious tried to review cognitive behavioral perspectives ways to emotionally manage current situational factors.? Patient has for an extended period of time had great deal of difficulty with any emotional a mental coping strategies.? Will and lorazepam p.r.n. 0.5 mg to help with anxiety trying get clarity from DTS regarding transition to usp setting positive reinforcement for patient's efforts at physical conditioning becomes demoralized easily denies active self-harm 11/07 continue tx. 11/08 no changes, pt had unwitnessed fall and hit head, head CT negative 11/09 no changes 11/10 no changes 11/11 no changes 11/12/22 acute med w/u neg incentive spirometer cont medication cbt skills cont pt/ot 11/12 medical workout came back negative. No changes in current treatment 11/14/2022 Patient depressed withdrawn more fatigued 11/18/21 taper lexapro start effexor lower seroquel sec to fatigue 11/19/21 Seroquel lowered inc venlafax 11/21/21 Pt with swallowing problem motor dysfx lower gabapentin lower nortriptyline lower seroquel 11/22 continue tx. 11/23 continue tx. 11/24/2022 More alert with lowered gabapentin nortriptyline lorazepam lower Lamictal to 150 b.i.d. hope to improve patient's balance motor function and consideration swallowing dysfunction can try and taper down on Seroquel in case this is also a contributing factor 11/25/2022 Patient has been active with OT change to venlafaxine from Lexapro and lowering of nortriptyline seems show some improvement Discharge planning continues 11/26/2022 the patient reports worsening his mood being more depressed and anxious. We will discuss the case with Dr. Haskins. 11/27/2022 no changes on mental status, we will keep on the same treatment 11/29 continue current treatment plan 11/30 continue current treatment plan 12/02/2022 Effexor was increased to 112.5 mg Seroquel have been lower to 50 mg and Mirapex discontinued hope being this will improve physical functioning 12/03/2021 Continue Effexor 112 Seroquel 50 at bedtime patient's diet was able to be increased 12/04/2022 Increase Effexor to 150 mg continue physical therapy on the unit reviewed cognitive behavioral and positive supports Stop Seroquel will try olanzapine 2.5 mg at bedtime 12/05/2022 Patient seems improved with increase Effexor and change to olanzapine no further change at this time swallowing improved with chopped diet has discharge planning meeting coming up in 3 days 12/06: Continue current regimen and plans 12/07: Continue current plans and regimen 12/11- continue tx. Reason for contiued inpatient stay Substantial Risk for: inability to function Time Spent With Patient Time: Total time managing care of this patient today ____ minutes.
--- NOTE | 2022-12-11 13:35 | MHC.SL.SWA ---
Speech Pathologist Impression: Risk of Aspiration Due to: Neurological Condition Reduced Cognition Dysphasia Diet Status: Recommend Patient continue on Chopped/Advanced diet (NDD3) with individualized access to Cereal with milk, fruit salad cup, soft breads, cakes, muffins, sandwiches with ground textures (e.g. chicken or tuna salad). Continue with thin liquids, pills whole with puree or liquid, as preferred by patient. Provide ample liquid with pill administration. Liquid Consistency and Strategies for Safe Swallow: Liquid Intake Recommendation: Thin Liquid Intake Strategies: No Straws Double Swallow Solid Food Consistency: Dietary Recommendations: Chopped/Advanced (NDD3) Additional Modifications to Solid Foods: Cue patient to double swallow (dry swallow), particularly on sticky or harder to chew consistencies. Alternate liquids and solids. Oral Medication Intake: Whole with Liquid Please contact the pharmacy regarding appropriate crushable or liquid drug formulations that are available whenever modified delivery is recommended. Compensatory Strategies and Precautions to be Taken for Safe Swallow: Sitting Upright (90 deg) Double Swallow No Straw Small Bites and Sips Alternate Liquids/Solids Rate of Ingestion Change Avoid Specific Foods Supervision While Eating and Drinking for Safe Swallow: Total Supervision (1:1) Foods to Avoid: Hard to chew solids (e.g. solid pieces of meat), dry consistencies that break into pieces (e.g. cookies, crackers, chips, nuts), mixed solid consistencies that require ample chewing (e.g. green salads), rice. Swallowing Recommended Treatments: Compens. Strategy Educat. Recommendation for Speech: Inpatient Speech Therapy Comment: Patient was seen during lunch today for toleration of diet and ongoing education re: Swallowing needs. Patient reported that he had a late breakfast and was not very hungry. Lunch was an egg salad sandwich, cream of broccoli soup, and radha food cake, all appropriate and consistent with both current diet of chopped/advanced (NDD2) with specific, individualized food items for the patient. Patient had c/o that sandwich was cut into bite size pieces, like for a baby. Patient also wanted to know why the kitchen refused his request for a pickle. Patient reminded of previous discussions about appropriate food textures, his documented difficulty with swallowing solids and the institutional nature of the kitchen in a large hospital catering to a large population of patients. Patient given positive feedback about his successes on his current diet and the absence of any choking events over an extended period, which had a positive response from the patient. Patient reminded that his good judgement about types of foods that are safe for him to eat is critical for his ongoing success and improvement when he is discharged to a different setting. He was observed taking some tsps of soup and bites of his sandwich, with patient swallowing twice on these consistencies. Therapist left patient to finish his lunch independently. Recommend continue on current diet of Chopped/Advanced (NDD3) with individualized access to specific food textures, Thin Liquids, and pills whole with puree or liquid as preferred by patient. ASPIRATION PRECAUTIONS: -Continue total 1:1 supervision during PO intake, provide pt w/ cues as needed -Take small bites of food -Moisten food with sauces and gravies, ensuring sauces are mixed and blended in well with food -Chew food well -Avoid hard to chew solids, sticky textures, mixed consistencies, and foods that break up into small pieces (rice, popcorn, nuts) -Follow each bite with 2-3 additional dry swallow to promote pharyngeal clearance -After dry swallows, take sips of liquid to promote pharyngeal clearance -Take small, individual sips of liquid -Avoid taking consecutive sips -Avoid the use of straws -Follow sips with a throat clear then dry swallow -Maintain upright 90 degree position while eating and drinking and for at least 45 minutes afterwards -Ensure a rigorous daily oral care routine before first meal and after each subsequent meal Frequency/Duration: Date Range for Service Req: Timeline to reassess: Internet Specialist Clinican/Clinical Fellow: No Supervisory Statement: I have reviewed and agree with the student/clinical fellow's documentation: N/A Speech Language Pathologist: Sarah Cotter M.A., CCC-CARPET LAYER HELPER
[2022-12-11] MEDS: polyethylene glycoL 3350 17 GM POWD.PACK PO (16:30)
[2022-12-11 18:00] VITALS: BP 120/68; PULSE 72; RESP 18; TEMP 36.3; O2SAT 94
[2022-12-11] MEDS: Nortriptyline HCl 25 MG CAPSULE 50 MG PO (22:10)
[2022-12-11] MEDS: OLANZapine 2.5 MG TABLET PO (22:11)
[2022-12-11] MEDS: Melatonin 3 MG TABLET 9 MG PO (22:11)
[2022-12-11] MEDS: traZODone HCL 100 MG TABLET 200 MG PO (22:11)
[2022-12-11] MEDS: LORazepam 1 MG TABLET PO (22:13)
[2022-12-11] MEDS: Latanoprost 0.005 % Ophth Sol 2.5 ML DROPS 1 DROP EYE-BOTH (22:13)
[2022-12-12] MEDS: Omeprazole 20 MG CAPSULE.DR PO ×2 (06:16→16:55)
[2022-12-12 09:44] VITALS: BP 128/67; PULSE 88; RESP 18; TEMP 36.4; O2SAT 98
[2022-12-12] MEDS: Gabapentin 300 MG CAPSULE PO ×3 (09:45→22:25)
[2022-12-12] MEDS: Venlafaxine HCl ER 150 MG CAP.ER.24H PO (09:46)
[2022-12-12] MEDS: amLODIPine Besylate 5 MG TABLET PO (09:46)
[2022-12-12] MEDS: calcium polycarbophiL TABLET 1 TAB PO (09:46)
[2022-12-12] MEDS: Tamsulosin HCL 0.4 MG CAPSULE PO (09:46)
[2022-12-12] MEDS: Multivitamin TABLET 1 TAB PO (09:46)
[2022-12-12] MEDS: Cholecalciferol (Vitamin D3) 10 MCG TABLET PO (09:46)
[2022-12-12] MEDS: Naltrexone HCl 50 MG TABLET PO (09:47)
[2022-12-12] MEDS: lisinopriL 20 MG TABLET PO (09:47)
[2022-12-12] MEDS: lamoTRIgine 25 MG TABLET 150 MG PO ×2 (09:48→22:22)
[2022-12-12] MEDS: Finasteride 5 MG TABLET PO (09:48)
--- NOTE | 2022-12-12 10:20 | HO.PSYCHPN ---
Subjective Subjective Date of Service: 12/12/22 Reason For Visit: Depression hopelessness irritability Subjective Notes: Conditional Voluntary Interim History: Pt upset about peer who is disruptive and stating he may have to take matters in to his hands. Pt reports feeling hopeless, frustrated about his life and feeling lonely. He has intermittent suicidal thoughts, no plan or intent. given one time dose of ativan, but understands schedule dose won't be increased. Medication Compliance: Yes Review of Systems Review of Systems Yes Unobtainable due to mental condition and Unobtainable due to mental status Mental Status Exam Mental Status Exam Patient Appearance: Well Grooomed Patient Orientation: Person and Situation Level of Consciousness: Awake and Appropriate Patient Behavior: Guarded and Passive Behavior Comments: intermittently irritable, belligerent Mood Description: Withdrawn Affect Description: Constricted Patient Cognition Impaired: Yes Ability to Follow Directions: Good Speech Pattern: Clear Memory Description: Episodic Impaired and Working Impaired Diagnostics Vital Signs (24Hr): Vital Signs - 24 hr 12/12/22 18:00 Temperature 96.3 F L Pulse Rate 61 Respiratory Rate 18 Blood Pressure 154/84 H Pulse Oximetry 99 Oxygen Delivery Method Room Air BMI result Body Mass Index 30.2 Labs 11/13/22 07:43 11/12/22 09:32 Imaging Radiology Impressions: ITS Impressions Chest X-Ray 10/20/22 15:45 IMPRESSION: 1. Low lung volumes with bibasilar linear disc atelectasis versus scarring. 2. No airspace consolidation or effusion. Head CT 11/08/22 12:29 IMPRESSION: No acute intracranial hemorrhage or territorial infarction. Stable chronic postoperative changes with gliosis and encephalomalacia in the right frontal and right temporal lobes. Ex vacuo dilatation of the ventricles and diffuse parenchymal volume loss. Right-sided craniotomy changes. Chest X-Ray 11/12/22 10:32 IMPRESSION: Hypoexpanded lungs with bibasilar platelike atelectasis. Brain MRI 11/12/22 13:15 IMPRESSION: 1. No demonstrated acute intracranial abnormalities. 2. Chronic encephalomalacia of the right temporal, right frontal, and left occipital lobes. Small regions of chronic encephalomalacia in the parasagittal aspects of the bilateral parietal lobes. Moderate underlying microangiopathy and generalized cerebral volume loss. Chest X-Ray 11/14/22 15:52 IMPRESSION: Low lung volumes, bibasilar subsegmental atelectasis and slight elevation of the right hemidiaphragm similar to previous exam. Modified Barium Swallow 11/21/22 15:11 IMPRESSION: Laryngeal penetration on several occasions but no laryngeal aspiration. Mild retention of solid food in the valleculae which cleared with subsequent oral administration of water or thin barium. Correlate with speech therapy results. Medications Medications Current Medications Acetaminophen (Acetaminophen 325 Mg Tablet) 650 mg PO Q6H PRN PRN Reason: Headache/Pain Mild Scale (1-3) Last Admin: 12/11/22 22:12 Dose: 650 mg Al Hydroxide/Mg Hydroxide (Magnesium Hydrox/Alum Hydrox 30 Ml Oral.Susp) 30 ml PO Q6H PRN PRN Reason: Heartburn/Nausea Last Admin: 11/22/22 21:39 Dose: 30 ml Albuterol Sulfate (Albuterol Sulfate 90 Mcg 8 Gm Inhaler) 2 puff INHALE Q6H PRN PRN Reason: Wheezing Amlodipine Besylate (Amlodipine Besylate 5 Mg Tablet) 5 mg PO DAILY [facility]; Protocol Last Admin: 12/13/22 09:09 Dose: 5 mg Benzocaine (Throat Lozenge, Medicated Lozenge) 1 lozenge MUCOUS MEM Q2H PRN PRN Reason: Sore Throat Last Admin: 11/12/22 03:08 Dose: 1 lozenge Calcium Polycarbophil (Calcium Polycarbophil Tablet) 1 tab PO DAILY [facility] Last Admin: 12/13/22 09:07 Dose: 1 tab Docusate Sodium (Docusate Sodium 100 Mg Capsule) 100 mg PO DAILY PRN PRN Reason: constipation Last Admin: 12/13/22 01:31 Dose: 100 mg Finasteride (Finasteride 5 Mg Tablet) 5 mg PO DAILY [facility] Last Admin: 12/13/22 09:06 Dose: 5 mg Gabapentin (Gabapentin 300 Mg Capsule) 300 mg PO TID [facility] Last Admin: 12/13/22 09:07 Dose: 300 mg Guaifenesin/Dextromethorphan (Guaifenesin Dm 200/20/10 Ml 10 Ml Syrup) 10 ml PO Q4H PRN PRN Reason: Cough Last Admin: 11/20/22 05:31 Dose: 10 ml Hydroxyzine HCl (Hydroxyzine Hcl 25 Mg Tablet) 25 mg PO Q6H PRN PRN Reason: Anxiety Last Admin: 12/13/22 01:31 Dose: 25 mg Lamotrigine (Lamotrigine 25 Mg Tablet) 150 mg PO BID [facility] Last Admin: 12/12/22 22:22 Dose: 150 mg Latanoprost (Latanoprost 0.005 % Ophth No 2.5 Ml Drops) 1 drop EYE-BOTH BEDTIME TAZ Last Admin: 12/12/22 22:50 Dose: 1 drop Lidocaine (Lidocaine 5 % Ointment 35 Gm) 1 appl TOPICAL QID TAZ Last Admin: 12/13/22 09:05 Dose: 1 appl Lisinopril (Lisinopril 20 Mg Tablet) 20 mg PO DAILY [facility]; Protocol Last Admin: 12/13/22 09:08 Dose: 20 mg Lorazepam (Lorazepam 1 Mg Tablet) 1 mg PO BEDTIME TAZ Last Admin: 12/12/22 22:25 Dose: 1 mg Lorazepam (Lorazepam 0.5 Mg Tablet) 0.5 mg PO Q4H PRN PRN Reason: Anxiety Last Admin: 12/12/22 18:02 Dose: 0.5 mg Magnesium Hydroxide (Milk Of Magnesia 30 Ml Oral.Susp) 30 ml PO DAILY PRN PRN Reason: Constipation Last Admin: 11/28/22 21:13 Dose: 30 ml Melatonin (Melatonin 3 Mg Tablet) 9 mg PO BEDTIME [facility] Last Admin: 12/12/22 22:25 Dose: 9 mg Multi-Ingred Cream/Lotion/Oil/Oint (Mineral Oil/Petrolatum,White 106 Gm Tube) 1 appl TOPICAL BID [facility]; Protocol Last Admin: 12/12/22 22:27 Dose: 1 appl Multivitamins/Vitamin C (Multivitamin Tablet) 1 tab PO DAILY [facility] Last Admin: 12/13/22 09:09 Dose: 1 tab Naltrexone HCl (Naltrexone Hcl 50 Mg Tablet) 50 mg PO DAILY [facility] Last Admin: 12/13/22 09:09 Dose: 50 mg Nortriptyline HCl (Nortriptyline Hcl 25 Mg Capsule) 50 mg PO BEDTIME [facility] Last Admin: 12/12/22 22:24 Dose: 50 mg Olanzapine (Olanzapine 2.5 Mg Tablet) 2.5 mg PO BEDTIME TAZ Last Admin: 12/12/22 22:20 Dose: 2.5 mg Omeprazole (Omeprazole 20 Mg Capsule.Dr) 20 mg PO BID@0630,1630 [facility] Last Admin: 12/13/22 05:25 Dose: 20 mg Ondansetron HCl (Ondansetron Odt 4 Mg Tab.Rapdis) 4 mg TRANSLINGU Q6H PRN PRN Reason: Nausea and Vomiting Last Admin: 12/10/22 04:53 Dose: 4 mg Oxybutynin Chloride (Oxybutynin Chloride Er 5 Mg Tab.Er.24) 10 mg PO DAILY [facility] Last Admin: 12/13/22 09:06 Dose: 10 mg Polyethylene Glycol (Polyethylene Glycol 3350 17 Gm Powd.Pack) 17 gm PO DAILY@1600 [facility] Last Admin: 12/12/22 16:55 Dose: 17 gm Psyllium Hydrophilic Mucilloid (Psyllium Seed 3.4 Gm Powd.Pack) 3.4 gm PO DAILY [facility] Last Admin: 12/13/22 09:05 Dose: 3.4 gm Tamsulosin HCl (Tamsulosin Hcl 0.4 Mg Capsule) 0.4 mg PO DAILY [facility] Last Admin: 12/13/22 09:09 Dose: 0.4 mg Trazodone HCl (Trazodone Hcl 100 Mg Tablet) 200 mg PO BEDTIME [facility] Last Admin: 12/12/22 22:23 Dose: 200 mg Trazodone HCl (Trazodone Hcl 50 Mg Tablet) 50 mg PO BEDTIME PRN PRN Reason: Insomnia Last Admin: 12/13/22 01:31 Dose: 50 mg Venlafaxine HCl (Venlafaxine Hcl Er 150 Mg Cap.Er.24h) 150 mg PO DAILY [facility] Last Admin: 12/13/22 09:08 Dose: 150 mg Vitamin D (Cholecalciferol (Vitamin D3) 10 Mcg Tablet) 10 mcg PO DAILY [facility] Last Admin: 12/13/22 09:09 Dose: 10 mcg Allergies Allergies Allergy/AdvReac Type Severity Reaction Status Date / Time fentanyl [FENTANYL] Allergy Intermediate unknown Verified 04/08/22 07:00 Assessment & Plan Assessment & Plan (1) Cognitive and neurobehavioral dysfunction following brain injury: Status: Acute Code(s): G31.89 - Other specified degenerative diseases of nervous system; F09 - Unspecified mental disorder due to known physiological condition; S06.9X9S - Unspecified intracranial injury with loss of consciousness of unspecified duration, sequela (2) Major depressive disorder, recurrent severe without psychotic features: Status: Acute Code(s): F33.2 - Major depressive disorder, recurrent severe without psychotic features (3) Swallowing dysfunction: Status: Acute Code(s): R13.10 - Dysphagia, unspecified Assessment and Plan: See specific swallowing plan Plan The patient is a 67-year-old male, , 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 At this moment also, he has problems of housing since he will not be able to go back to his regular residential.? The patient has a long history of alcohol use disorder that he was not able to process or work on it.? Plan 1. Continue with the same treatment.? 2. We will work with the director of social work and DDS for a proper discharge planning.? 3. Continue with recommendations of Wound Care. 4. Increase Seroquel up to 150 mg po qhs. 10/30/22 restart lorazepam 1 hs prn insomnia norterip inc 100 hs level in 50 s monitor ekg 11/01 continue current tx plan 11/02/22- Bedside Swallow eval. s/p choking episode on 11/01. 2021 Increase Lexapro encourage CBT skills need supportive coaching patient increasingly hopeless helpless denies active self-harm check nortriptyline level 11/05/2022 Check nortriptyline level patient on Seroquel nortriptyline Lexapro.? Needs much reassurance and support the has difficulty interacting at times secondary to a hopelessness irritability passive SI.? Patient has having difficulty maintaining his posture in his chair unclear why this is happening for discuss safety issues with nursing will need OT and potentially Pt input? 11/06/2022 Patient depressed and anxious tried to review cognitive behavioral perspectives ways to emotionally manage current situational factors.? Patient has for an extended period of time had great deal of difficulty with any emotional a mental coping strategies.? Will and lorazepam p.r.n. 0.5 mg to help with anxiety trying get clarity from DTS regarding transition to residential setting positive reinforcement for patient's efforts at physical conditioning becomes demoralized easily denies active self-harm 11/07 continue tx. 11/08 no changes, pt had unwitnessed fall and hit head, head CT negative 11/09 no changes 11/10 no changes 11/11 no changes 11/12/22 acute med w/u neg incentive spirometer cont medication cbt skills cont pt/ot 11/12 medical workout came back negative. No changes in current treatment 11/14/2022 Patient depressed withdrawn more fatigued 11/18/21 taper lexapro start effexor lower seroquel sec to fatigue 11/19/21 Seroquel lowered inc venlafax 11/21/21 Pt with swallowing problem motor dysfx lower gabapentin lower nortriptyline lower seroquel 11/22 continue tx. 11/23 continue tx. 11/24/2022 More alert with lowered gabapentin nortriptyline lorazepam lower Lamictal to 150 b.i.d. hope to improve patient's balance motor function and consideration swallowing dysfunction can try and taper down on Seroquel in case this is also a contributing factor 11/25/2022 Patient has been active with OT change to venlafaxine from Lexapro and lowering of nortriptyline seems show some improvement Discharge planning continues 11/26/2022 the patient reports worsening his mood being more depressed and anxious. We will discuss the case with Dr. Haskins. 11/27/2022 no changes on mental status, we will keep on the same treatment 11/29 continue current treatment plan 11/30 continue current treatment plan 12/02/2022 Effexor was increased to 112.5 mg Seroquel have been lower to 50 mg and Mirapex discontinued hope being this will improve physical functioning 12/03/2021 Continue Effexor 112 Seroquel 50 at bedtime patient's diet was able to be increased 12/04/2022 Increase Effexor to 150 mg continue physical therapy on the unit reviewed cognitive behavioral and positive supports Stop Seroquel will try olanzapine 2.5 mg at bedtime 12/05/2022 Patient seems improved with increase Effexor and change to olanzapine no further change at this time swallowing improved with chopped diet has discharge planning meeting coming up in 3 days 12/06: Continue current regimen and plans 12/07: Continue current plans and regimen 12/11- continue tx. 12/12 continue tx. Reason for contiued inpatient stay Substantial Risk for: inability to function Time Spent With Patient Time: Total time managing care of this patient today ____ minutes.
[2022-12-12] MEDS: LORazepam 1 MG TABLET PO ×2 (14:04→22:25)
[2022-12-12] MEDS: polyethylene glycoL 3350 17 GM POWD.PACK PO (16:55)
[2022-12-12 18:00] VITALS: BP 154/84; PULSE 61; RESP 18; TEMP 35.7; O2SAT 99
[2022-12-12] MEDS: LORazepam 0.5 MG TABLET PO (18:02)
[2022-12-12] MEDS: hydrOXYzine HCL 25 MG TABLET PO (18:04)
[2022-12-12] MEDS: OLANZapine 2.5 MG TABLET PO (22:20)
[2022-12-12] MEDS: traZODone HCL 100 MG TABLET 200 MG PO (22:23)
[2022-12-12] MEDS: Nortriptyline HCl 25 MG CAPSULE 50 MG PO (22:24)
[2022-12-12] MEDS: Melatonin 3 MG TABLET 9 MG PO (22:25)
[2022-12-12] MEDS: Mineral Oil/Petrolatum,White 106 GM Tube 1 APPL TOPICAL (22:27)
[2022-12-12] MEDS: Lidocaine 5 % Ointment 35 GM 1 APPL TOPICAL (22:28)
[2022-12-12] MEDS: Latanoprost 0.005 % Ophth Sol 2.5 ML DROPS 1 DROP EYE-BOTH (22:50)
[2022-12-13] MEDS: Docusate Sodium 100 MG CAPSULE PO (01:31)
[2022-12-13] MEDS: traZODone HCL 50 MG TABLET PO (01:31)
[2022-12-13] MEDS: hydrOXYzine HCL 25 MG TABLET PO (01:31)
[2022-12-13] MEDS: Omeprazole 20 MG CAPSULE.DR PO ×2 (05:25→16:36)
[2022-12-13 06:00] VITALS: BP 127/83; PULSE 96; RESP 16; TEMP 36.2; O2SAT 96
--- NOTE | 2022-12-13 08:35 | P.PNPSI_ITS ---
Subjective Subjective Date of Service: 12/13/22 Reason For Visit: Depression hopelessness irritability Subjective Notes: Conditional Voluntary Interim History: The nursing staff reported the patient slept 6 hours and he needed trazodone at night. Yesterday he was very angry with a peer who is grossly manic and disorganized and very disruptive. On interview the patient reports dysphoria but able to contract for safety in the facility. Mental Status Exam Mental Status Exam Patient Appearance: Well Grooomed Patient Orientation: Person and Situation Level of Consciousness: Awake and Appropriate Patient Behavior: Guarded and Passive Mood Description: Withdrawn Affect Description: Constricted Patient Cognition Impaired: Yes Ability to Follow Directions: Good Speech Pattern: Clear Hallucinations: None Delusions: Not Present Thought Process: Linear Thought Content: positive for Circumstantial Judgement: Fair Diagnostics Vital Signs (24Hr): Vital Signs - 24 hr 12/12/22 09:44 12/12/22 18:00 Temperature 97.6 F 96.3 F L Pulse Rate 88 61 Respiratory Rate 18 18 Blood Pressure 128/67 154/84 H Pulse Oximetry 98 99 Oxygen Delivery Method Room Air Room Air BMI result Body Mass Index 30.2 Labs 11/13/22 07:43 11/12/22 09:32 Imaging Radiology Impressions: ITS Impressions Chest X-Ray 10/20/22 15:45 IMPRESSION: 1. Low lung volumes with bibasilar linear disc atelectasis versus scarring. 2. No airspace consolidation or effusion. Head CT 11/08/22 12:29 IMPRESSION: No acute intracranial hemorrhage or territorial infarction. Stable chronic postoperative changes with gliosis and encephalomalacia in the right frontal and right temporal lobes. Ex vacuo dilatation of the ventricles and diffuse parenchymal volume loss. Right-sided craniotomy changes. Chest X-Ray 11/12/22 10:32 IMPRESSION: Hypoexpanded lungs with bibasilar platelike atelectasis. Brain MRI 11/12/22 13:15 IMPRESSION: 1. No demonstrated acute intracranial abnormalities. 2. Chronic encephalomalacia of the right temporal, right frontal, and left occipital lobes. Small regions of chronic encephalomalacia in the parasagittal aspects of the bilateral parietal lobes. Moderate underlying microangiopathy and generalized cerebral volume loss. Chest X-Ray 11/14/22 15:52 IMPRESSION: Low lung volumes, bibasilar subsegmental atelectasis and slight elevation of the right hemidiaphragm similar to previous exam. Modified Barium Swallow 11/21/22 15:11 IMPRESSION: Laryngeal penetration on several occasions but no laryngeal aspiration. Mild retention of solid food in the valleculae which cleared with subsequent oral administration of water or thin barium. Correlate with speech therapy results. Medications Medications Current Medications Acetaminophen (Acetaminophen 325 Mg Tablet) 650 mg PO Q6H PRN PRN Reason: Headache/Pain Mild Scale (1-3) Last Admin: 12/11/22 22:12 Dose: 650 mg Al Hydroxide/Mg Hydroxide (Magnesium Hydrox/Alum Hydrox 30 Ml Oral.Susp) 30 ml PO Q6H PRN PRN Reason: Heartburn/Nausea Last Admin: 11/22/22 21:39 Dose: 30 ml Albuterol Sulfate (Albuterol Sulfate 90 Mcg 8 Gm Inhaler) 2 puff INHALE Q6H PRN PRN Reason: Wheezing Amlodipine Besylate (Amlodipine Besylate 5 Mg Tablet) 5 mg PO DAILY [facility]; Protocol Last Admin: 12/12/22 09:46 Dose: 5 mg Benzocaine (Throat Lozenge, Medicated Lozenge) 1 lozenge MUCOUS MEM Q2H PRN PRN Reason: Sore Throat Last Admin: 11/12/22 03:08 Dose: 1 lozenge Calcium Polycarbophil (Calcium Polycarbophil Tablet) 1 tab PO DAILY [facility] Last Admin: 12/12/22 09:46 Dose: 1 tab Docusate Sodium (Docusate Sodium 100 Mg Capsule) 100 mg PO DAILY PRN PRN Reason: constipation Last Admin: 12/13/22 01:31 Dose: 100 mg Finasteride (Finasteride 5 Mg Tablet) 5 mg PO DAILY [facility] Last Admin: 12/12/22 09:48 Dose: 5 mg Gabapentin (Gabapentin 300 Mg Capsule) 300 mg PO TID [facility] Last Admin: 12/12/22 22:25 Dose: 300 mg Guaifenesin/Dextromethorphan (Guaifenesin Dm 200/20/10 Ml 10 Ml Syrup) 10 ml PO Q4H PRN PRN Reason: Cough Last Admin: 11/20/22 05:31 Dose: 10 ml Hydroxyzine HCl (Hydroxyzine Hcl 25 Mg Tablet) 25 mg PO Q6H PRN PRN Reason: Anxiety Last Admin: 12/13/22 01:31 Dose: 25 mg Lamotrigine (Lamotrigine 25 Mg Tablet) 150 mg PO BID [facility] Last Admin: 12/12/22 22:22 Dose: 150 mg Latanoprost (Latanoprost 0.005 % Ophth No 2.5 Ml Drops) 1 drop EYE-BOTH BEDTIME [facility] Last Admin: 12/12/22 22:50 Dose: 1 drop Lidocaine (Lidocaine 5 % Ointment 35 Gm) 1 appl TOPICAL QID [facility] Last Admin: 12/12/22 22:28 Dose: 1 appl Lisinopril (Lisinopril 20 Mg Tablet) 20 mg PO DAILY [facility]; Protocol Last Admin: 12/12/22 09:47 Dose: 20 mg Lorazepam (Lorazepam 1 Mg Tablet) 1 mg PO BEDTIME [facility] Last Admin: 12/12/22 22:25 Dose: 1 mg Lorazepam (Lorazepam 0.5 Mg Tablet) 0.5 mg PO Q4H PRN PRN Reason: Anxiety Last Admin: 12/12/22 18:02 Dose: 0.5 mg Magnesium Hydroxide (Milk Of Magnesia 30 Ml Oral.Susp) 30 ml PO DAILY PRN PRN Reason: Constipation Last Admin: 11/28/22 21:13 Dose: 30 ml Melatonin (Melatonin 3 Mg Tablet) 9 mg PO BEDTIME [facility] Last Admin: 12/12/22 22:25 Dose: 9 mg Multi-Ingred Cream/Lotion/Oil/Oint (Mineral Oil/Petrolatum,White 106 Gm Tube) 1 appl TOPICAL BID [facility]; Protocol Last Admin: 12/12/22 22:27 Dose: 1 appl Multivitamins/Vitamin C (Multivitamin Tablet) 1 tab PO DAILY [facility] Last Admin: 12/12/22 09:46 Dose: 1 tab Naltrexone HCl (Naltrexone Hcl 50 Mg Tablet) 50 mg PO DAILY [facility] Last Admin: 12/12/22 09:47 Dose: 50 mg Nortriptyline HCl (Nortriptyline Hcl 25 Mg Capsule) 50 mg PO BEDTIME [facility] Last Admin: 12/12/22 22:24 Dose: 50 mg Olanzapine (Olanzapine 2.5 Mg Tablet) 2.5 mg PO BEDTIME [facility] Last Admin: 12/12/22 22:20 Dose: 2.5 mg Omeprazole (Omeprazole 20 Mg Capsule.Dr) 20 mg PO BID@0630,1630 [facility] Last Admin: 12/13/22 05:25 Dose: 20 mg Ondansetron HCl (Ondansetron Odt 4 Mg Tab.Rapdis) 4 mg TRANSLINGU Q6H PRN PRN Reason: Nausea and Vomiting Last Admin: 12/10/22 04:53 Dose: 4 mg Oxybutynin Chloride (Oxybutynin Chloride Er 5 Mg Tab.Er.24) 10 mg PO DAILY [facility] Last Admin: 12/12/22 09:47 Dose: 10 mg Polyethylene Glycol (Polyethylene Glycol 3350 17 Gm Powd.Pack) 17 gm PO DAILY@ 1600 [facility] Last Admin: 12/12/22 16:55 Dose: 17 gm Psyllium Hydrophilic Mucilloid (Psyllium Seed 3.4 Gm Powd.Pack) 3.4 gm PO DAILY [facility] Last Admin: 12/12/22 09:45 Dose: 3.4 gm Tamsulosin HCl (Tamsulosin Hcl 0.4 Mg Capsule) 0.4 mg PO DAILY [facility] Last Admin: 12/12/22 09:46 Dose: 0.4 mg Trazodone HCl (Trazodone Hcl 100 Mg Tablet) 200 mg PO BEDTIME [facility] Last Admin: 12/12/22 22:23 Dose: 200 mg Trazodone HCl (Trazodone Hcl 50 Mg Tablet) 50 mg PO BEDTIME PRN PRN Reason: Insomnia Last Admin: 12/13/22 01:31 Dose: 50 mg Venlafaxine HCl (Venlafaxine Hcl Er 150 Mg Cap.Er.24h) 150 mg PO DAILY [facility] Last Admin: 12/12/22 09:46 Dose: 150 mg Vitamin D (Cholecalciferol (Vitamin D3) 10 Mcg Tablet) 10 mcg PO DAILY [facility] Last Admin: 12/12/22 09:46 Dose: 10 mcg Allergies Allergies Allergy/AdvReac Type Severity Reaction Status Date / Time fentanyl [FENTANYL] Allergy Intermediate unknown Verified 04/08/22 07:00 Assessment & Plan Assessment & Plan (1) Cognitive and neurobehavioral dysfunction following brain injury: Status: Acute Code(s): G31.89 - Other specified degenerative diseases of nervous system; F09 - Unspecified mental disorder due to known physiological condition; S06.9X9S - Unspecified intracranial injury with loss of consciousness of unspecified duration, sequela (2) Major depressive disorder, recurrent severe without psychotic features: Status: Acute Code(s): F33.2 - Major depressive disorder, recurrent severe without psychotic features (3) Swallowing dysfunction: Status: Acute Code(s): R13.10 - Dysphagia, unspecified Assessment and Plan: See specific swallowing plan Plan The patient is a 67-year-old male, , 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 At this moment also, he has problems of housing since he will not be able to go back to his regular alf.? The patient has a long history of alcohol use disorder that he was not able to process or work on it.? Plan 1. Continue with the same treatment.? 2. We will work with the psychosocial rehabilitation counselor and DDS for a proper discharge planning.? 3. Continue with recommendations of Wound Care. 4. Increase Seroquel up to 150 mg po qhs. 10/30/22 restart lorazepam 1 hs prn insomnia norterip inc 100 hs level in 50 s monitor ekg 11/01 continue current tx plan 11/02/22- Bedside Swallow eval. s/p choking episode on 11/01. 2021 Increase Lexapro encourage CBT skills need supportive coaching patient increasingly hopeless helpless denies active self-harm check nortriptyline level 11/05/2022 Check nortriptyline level patient on Seroquel nortriptyline Lexapro.? Needs much reassurance and support the has difficulty interacting at times secondary to a hopelessness irritability passive SI.? Patient has having difficulty maintaining his posture in his chair unclear why this is happening for discuss safety issues with nursing will need OT and potentially Pt input? 11/06/2022 Patient depressed and anxious tried to review cognitive behavioral perspectives ways to emotionally manage current situational factors.? Patient has for an extended period of time had great deal of difficulty with any emotional a mental coping strategies.? Will and lorazepam p.r.n. 0.5 mg to help with anxiety trying get clarity from DTS regarding transition to alf setting positive reinforcement for patient's efforts at physical conditioning becomes demoralized easily denies active self-harm 11/07 continue tx. 11/08 no changes, pt had unwitnessed fall and hit head, head CT negative 11/09 no changes 11/10 no changes 11/11 no changes 11/12/22 acute med w/u neg incentive spirometer cont medication cbt skills cont pt/ot 11/12 medical workout came back negative. No changes in current treatment 11/14/2022 Patient depressed withdrawn more fatigued 11/18/21 taper lexapro start effexor lower seroquel sec to fatigue 11/19/21 Seroquel lowered inc venlafax 11/21/21 Pt with swallowing problem motor dysfx lower gabapentin lower nortriptyline lower seroquel 11/22 continue tx. 11/23 continue tx. 11/24/2022 More alert with lowered gabapentin nortriptyline lorazepam lower Lamictal to 150 b.i.d. hope to improve patient's balance motor function and consideration swallowing dysfunction can try and taper down on Seroquel in case this is also a contributing factor 11/25/2022 Patient has been active with OT change to venlafaxine from Lexapro and lowering of nortriptyline seems show some improvement Discharge planning continues 11/26/2022 the patient reports worsening his mood being more depressed and anxious. We will discuss the case with Dr. Haskins. 11/27/2022 no changes on mental status, we will keep on the same treatment 11/29 continue current treatment plan 11/30 continue current treatment plan 12/02/2022 Effexor was increased to 112.5 mg Seroquel have been lower to 50 mg and Mirapex discontinued hope being this will improve physical functioning 12/03/2021 Continue Effexor 112 Seroquel 50 at bedtime patient's diet was able to be increased 12/04/2022 Increase Effexor to 150 mg continue physical therapy on the unit reviewed c ognitive behavioral and positive supports Stop Seroquel will try olanzapine 2.5 mg at bedtime 12/05/2022 Patient seems improved with increase Effexor and change to olanzapine no further change at this time swallowing improved with chopped diet has discharge planning meeting coming up in 3 days 12/06: Continue current regimen and plans 12/07: Continue current plans and regimen No change of treatment on 12/13 Reason for contiued inpatient stay Substantial Risk for: inability to function, rapid decompensation and med/psych decompensation Time Spent With Patient Time: Total time managing care of this patient today __20__ minutes.
[2022-12-13] MEDS: Lidocaine 5 % Ointment 35 GM 1 APPL TOPICAL (09:05)
[2022-12-13] MEDS: Finasteride 5 MG TABLET PO (09:06)
[2022-12-13] MEDS: calcium polycarbophiL TABLET 1 TAB PO (09:07)
[2022-12-13] MEDS: Gabapentin 300 MG CAPSULE PO ×3 (09:07→21:25)
[2022-12-13] MEDS: lisinopriL 20 MG TABLET PO (09:08)
[2022-12-13] MEDS: Venlafaxine HCl ER 150 MG CAP.ER.24H PO (09:08)
[2022-12-13] MEDS: Naltrexone HCl 50 MG TABLET PO (09:09)
[2022-12-13] MEDS: amLODIPine Besylate 5 MG TABLET PO (09:09)
[2022-12-13] MEDS: Tamsulosin HCL 0.4 MG CAPSULE PO (09:09)
[2022-12-13] MEDS: Cholecalciferol (Vitamin D3) 10 MCG TABLET PO (09:09)
[2022-12-13] MEDS: Multivitamin TABLET 1 TAB PO (09:09)
[2022-12-13] MEDS: lamoTRIgine 25 MG TABLET 150 MG PO ×2 (12:39→21:25)
[2022-12-13] MEDS: Mineral Oil/Petrolatum,White 106 GM Tube 1 APPL TOPICAL (12:40)
[2022-12-13] MEDS: polyethylene glycoL 3350 17 GM POWD.PACK PO (16:37)
[2022-12-13] MEDS: LORazepam 0.5 MG TABLET PO (17:15)
[2022-12-13 18:00] VITALS: BP 143/77; PULSE 75; RESP 17; TEMP 35.9; O2SAT 97
[2022-12-13] MEDS: OLANZapine 2.5 MG TABLET PO (21:25)
[2022-12-13] MEDS: LORazepam 1 MG TABLET PO (21:25)
[2022-12-13] MEDS: traZODone HCL 100 MG TABLET 200 MG PO (21:25)
[2022-12-13] MEDS: Nortriptyline HCl 25 MG CAPSULE 50 MG PO (21:25)
[2022-12-13] MEDS: Melatonin 3 MG TABLET 9 MG PO (21:25)
[2022-12-13] MEDS: Latanoprost 0.005 % Ophth Sol 2.5 ML DROPS 1 DROP EYE-BOTH (21:34)
[2022-12-13] MEDS: Acetaminophen 325 MG TABLET 650 MG PO (21:40)
[2022-12-14] MEDS: Acetaminophen 325 MG TABLET 650 MG PO (04:05)
[2022-12-14] MEDS: Omeprazole 20 MG CAPSULE.DR PO ×2 (05:42→14:46)
[2022-12-14 06:00] VITALS: BP 125/72; PULSE 75; RESP 18; TEMP 36.6; O2SAT 95
--- NOTE | 2022-12-14 08:26 | HO.PSYCHPN ---
Subjective Subjective Date of Service: 12/14/22 Reason For Visit: Depression hopelessness irritability Subjective Notes: Conditional Voluntary Interim History: The nursing staff reported the patient has been anxious since he is going to go to a new half-way. Yesterday he took a shower he was TV. The staff has noticed that the patient is unusually pleasant. He slept 6 hours with p.r.n. medication. On interview the patient reports anxiety but no safety concerns. Mental Status Exam Mental Status Exam Patient Appearance: Well Grooomed and Appropriate Patient Orientation: Person, Place, Time and Situation Level of Consciousness: Awake and Appropriate Patient Behavior: Cooperative and Passive Mood Description: Calm Affect Description: Constricted Patient Cognition Impaired: Yes Ability to Follow Directions: Good Speech Pattern: Clear Hallucinations: None Delusions: Not Present Thought Process: Linear Thought Content: positive for [place] and positive for Circumstantial Judgement: Fair Diagnostics Vital Signs (24Hr): Vital Signs - 24 hr 12/13/22 18:00 Temperature 96.7 F L Pulse Rate 75 Respiratory Rate 17 Blood Pressure 143/77 H Pulse Oximetry 97 Oxygen Delivery Method Room Air BMI result Body Mass Index 30.2 Labs 11/13/22 07:43 11/12/22 09:32 Imaging Radiology Impressions: ITS Impressions Chest X-Ray 10/20/22 15:45 IMPRESSION: 1. Low lung volumes with bibasilar linear disc atelectasis versus scarring. 2. No airspace consolidation or effusion. Head CT 11/08/22 12:29 IMPRESSION: No acute intracranial hemorrhage or territorial infarction. Stable chronic postoperative changes with gliosis and encephalomalacia in the right frontal and right temporal lobes. Ex vacuo dilatation of the ventricles and diffuse parenchymal volume loss. Right-sided craniotomy changes. Chest X-Ray 11/12/22 10:32 IMPRESSION: Hypoexpanded lungs with bibasilar platelike atelectasis. Brain MRI 11/12/22 13:15 IMPRESSION: 1. No demonstrated acute intracranial abnormalities. 2. Chronic encephalomalacia of the right temporal, right frontal, and left occipital lobes. Small regions of chronic encephalomalacia in the parasagittal aspects of the bilateral parietal lobes. Moderate underlying microangiopathy and generalized cerebral volume loss. Chest X-Ray 11/14/22 15:52 IMPRESSION: Low lung volumes, bibasilar subsegmental atelectasis and slight elevation of the right hemidiaphragm similar to previous exam. Modified Barium Swallow 11/21/22 15:11 IMPRESSION: Laryngeal penetration on several occasions but no laryngeal aspiration. Mild retention of solid food in the valleculae which cleared with subsequent oral administration of water or thin barium. Correlate with speech therapy results. Medications Medications Current Medications Acetaminophen (Acetaminophen 325 Mg Tablet) 650 mg PO Q6H PRN PRN Reason: Headache/Pain Mild Scale (1-3) Last Admin: 12/14/22 04:05 Dose: 650 mg Al Hydroxide/Mg Hydroxide (Magnesium Hydrox/Alum Hydrox 30 Ml Oral.Susp) 30 ml PO Q6H PRN PRN Reason: Heartburn/Nausea Last Admin: 11/22/22 21:39 Dose: 30 ml Albuterol Sulfate (Albuterol Sulfate 90 Mcg 8 Gm Inhaler) 2 puff INHALE Q6H PRN PRN Reason: Wheezing Amlodipine Besylate (Amlodipine Besylate 5 Mg Tablet) 5 mg PO DAILY [facility]; Protocol Last Admin: 12/13/22 09:09 Dose: 5 mg Benzocaine (Throat Lozenge, Medicated Lozenge) 1 lozenge MUCOUS MEM Q2H PRN PRN Reason: Sore Throat Last Admin: 11/12/22 03:08 Dose: 1 lozenge Calcium Polycarbophil (Calcium Polycarbophil Tablet) 1 tab PO DAILY [facility] Last Admin: 12/13/22 09:07 Dose: 1 tab Docusate Sodium (Docusate Sodium 100 Mg Capsule) 100 mg PO DAILY PRN PRN Reason: constipation Last Admin: 12/13/22 01:31 Dose: 100 mg Finasteride (Finasteride 5 Mg Tablet) 5 mg PO DAILY [facility] Last Admin: 12/13/22 09:06 Dose: 5 mg Gabapentin (Gabapentin 300 Mg Capsule) 300 mg PO TID [facility] Last Admin: 12/13/22 21:25 Dose: 300 mg Guaifenesin/Dextromethorphan (Guaifenesin Dm 200/20/10 Ml 10 Ml Syrup) 10 ml PO Q4H PRN PRN Reason: Cough Last Admin: 11/20/22 05:31 Dose: 10 ml Hydroxyzine HCl (Hydroxyzine Hcl 25 Mg Tablet) 25 mg PO Q6H PRN PRN Reason: Anxiety Last Admin: 12/13/22 01:31 Dose: 25 mg Lamotrigine (Lamotrigine 25 Mg Tablet) 150 mg PO BID [facility] Last Admin: 12/13/22 21:25 Dose: 150 mg Latanoprost (Latanoprost 0.005 % Ophth No 2.5 Ml Drops) 1 drop EYE-BOTH BEDTIME [facility] Last Admin: 12/13/22 21:34 Dose: 1 drop Lidocaine (Lidocaine 5 % Ointment 35 Gm) 1 appl TOPICAL QID [facility] Last Admin: 12/13/22 21:29 Dose: Not Given Lisinopril (Lisinopril 20 Mg Tablet) 20 mg PO DAILY [facility]; Protocol Last Admin: 12/13/22 09:08 Dose: 20 mg Lorazepam (Lorazepam 1 Mg Tablet) 1 mg PO BEDTIME [facility] Last Admin: 12/13/22 21:25 Dose: 1 mg Lorazepam (Lorazepam 0.5 Mg Tablet) 0.5 mg PO Q4H PRN PRN Reason: Anxiety Last Admin: 12/13/22 17:15 Dose: 0.5 mg Magnesium Hydroxide (Milk Of Magnesia 30 Ml Oral.Susp) 30 ml PO DAILY PRN PRN Reason: Constipation Last Admin: 11/28/22 21:13 Dose: 30 ml Melatonin (Melatonin 3 Mg Tablet) 9 mg PO BEDTIME [facility] Last Admin: 12/13/22 21:25 Dose: 9 mg Multi-Ingred Cream/Lotion/Oil/Oint (Mineral Oil/Petrolatum,White 106 Gm Tube) 1 appl TOPICAL BID [facility]; Protocol Last Admin: 12/13/22 21:29 Dose: Not Given Multivitamins/Vitamin C (Multivitamin Tablet) 1 tab PO DAILY [facility] Last Admin: 12/13/22 09:09 Dose: 1 tab Naltrexone HCl (Naltrexone Hcl 50 Mg Tablet) 50 mg PO DAILY [facility] Last Admin: 12/13/22 09:09 Dose: 50 mg Nortriptyline HCl (Nortriptyline Hcl 25 Mg Capsule) 50 mg PO BEDTIME [facility] Last Admin: 12/13/22 21:25 Dose: 50 mg Olanzapine (Olanzapine 2.5 Mg Tablet) 2.5 mg PO BEDTIME [facility] Last Admin: 12/13/22 21:25 Dose: 2.5 mg Omeprazole (Omeprazole 20 Mg Capsule.Dr) 20 mg PO BID@0630,1630 [facility] Last Admin: 12/14/22 05:42 Dose: 20 mg Ondansetron HCl (Ondansetron Odt 4 Mg Tab.Rapdis) 4 mg TRANSLINGU Q6H PRN PRN Reason: Nausea and Vomiting Last Admin: 12/10/22 04:53 Dose: 4 mg Oxybutynin Chloride (Oxybutynin Chloride Er 5 Mg Tab.Er.24) 10 mg PO DAILY [facility] Last Admin: 12/13/22 09:06 Dose: 10 mg Polyethylene Glycol (Polyethylene Glycol 3350 17 Gm Powd.Pack) 17 gm PO DAILY@1600 [facility] Last Admin: 12/13/22 16:37 Dose: 17 gm Psyllium Hydrophilic Mucilloid (Psyllium Seed 3.4 Gm Powd.Pack) 3.4 gm PO DAILY [facility] Last Admin: 12/13/22 09:05 Dose: 3.4 gm Tamsulosin HCl (Tamsulosin Hcl 0.4 Mg Capsule) 0.4 mg PO DAILY [facility] Last Admin: 12/13/22 09:09 Dose: 0.4 mg Trazodone HCl (Trazodone Hcl 100 Mg Tablet) 200 mg PO BEDTIME [facility] Last Admin: 12/13/22 21:25 Dose: 200 mg Trazodone HCl (Trazodone Hcl 50 Mg Tablet) 50 mg PO BEDTIME PRN PRN Reason: Insomnia Last Admin: 12/13/22 01:31 Dose: 50 mg Venlafaxine HCl (Venlafaxine Hcl Er 150 Mg Cap.Er.24h) 150 mg PO DAILY [facility] Last Admin: 12/13/22 09:08 Dose: 150 mg Vitamin D (Cholecalciferol (Vitamin D3) 10 Mcg Tablet) 10 mcg PO DAILY [facility] Last Admin: 12/13/22 09:09 Dose: 10 mcg Allergies Allergies Allergy/AdvReac Type Severity Reaction Status Date / Time fentanyl [FENTANYL] Allergy Intermediate unknown Verified 04/08/22 07:00 Assessment & Plan Assessment & Plan (1) Cognitive and neurobehavioral dysfunction following brain injury: Status: Acute Code(s): G31.89 - Other specified degenerative diseases of nervous system; F09 - Unspecified mental disorder due to known physiological condition; S06.9X9S - Unspecified intracranial injury with loss of consciousness of unspecified duration, sequela (2) Major depressive disorder, recurrent severe without psychotic features: Status: Acute Code(s): F33.2 - Major depressive disorder, recurrent severe without psychotic features (3) Swallowing dysfunction: Status: Acute Code(s): R13.10 - Dysphagia, unspecified Assessment and Plan: See specific swallowing plan Plan The patient is a 67-year-old male, , 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 At this moment also, he has problems of housing since he will not be able to go back to his regular half-way.? The patient has a long history of alcohol use disorder that he was not able to process or work on it.? Plan 1. Continue with the same treatment.? 2. We will work with the long term care social worker and DDS for a proper discharge planning.? 3. Continue with recommendations of Wound Care. 4. Increase Seroquel up to 150 mg po qhs. 10/30/22 restart lorazepam 1 hs prn insomnia norterip inc 100 hs level in 50 s monitor ekg 11/01 continue current tx plan 11/02/22- Bedside Swallow eval. s/p choking episode on 11/01. 2021 Increase Lexapro encourage CBT skills need supportive coaching patient increasingly hopeless helpless denies active self-harm check nortriptyline level 11/05/2022 Check nortriptyline level patient on Seroquel nortriptyline Lexapro.? Needs much reassurance and support the has difficulty interacting at times secondary to a hopelessness irritability passive SI.? Patient has having difficulty maintaining his posture in his chair unclear why this is happening for discuss safety issues with nursing will need OT and potentially Pt input? 11/06/2022 Patient depressed and anxious tried to review cognitive behavioral perspectives ways to emotionally manage current situational factors.? Patient has for an extended period of time had great deal of difficulty with any emotional a mental coping strategies.? Will and lorazepam p.r.n. 0.5 mg to help with anxiety trying get clarity from DTS regarding transition to half-way setting positive reinforcement for patient's efforts at physical conditioning becomes demoralized easily denies active self-harm 11/07 continue tx. 11/08 no changes, pt had unwitnessed fall and hit head, head CT negative 11/09 no changes 11/10 no changes 11/11 no changes 11/12/22 acute med w/u neg incentive spirometer cont medication cbt skills cont pt/ot 11/12 medical workout came back negative. No changes in current treatment 11/14/2022 Patient depressed withdrawn more fatigued 11/18/21 taper lexapro start effexor lower seroquel sec to fatigue 11/19/21 Seroquel lowered inc venlafax 11/21/21 Pt with swallowing problem motor dysfx lower gabapentin lower nortriptyline lower seroquel 11/22 continue tx. 11/23 continue tx. 11/24/2022 More alert with lowered gabapentin nortriptyline lorazepam lower Lamictal to 150 b.i.d. hope to improve patient's balance motor function and consideration swallowing dysfunction can try and taper down on Seroquel in case this is also a contributing factor 11/25/2022 Patient has been active with OT change to venlafaxine from Lexapro and lowering of nortriptyline seems show some improvement Discharge planning continues 11/26/2022 the patient reports worsening his mood being more depressed and anxious. We will discuss the case with Dr. Haskins. 11/27/2022 no changes on mental status, we will keep on the same treatment 11/29 continue current treatment plan 11/30 continue current treatment plan 12/02/2022 Effexor was increased to 112.5 mg Seroquel have been lower to 50 mg and Mirapex discontinued hope being this will improve physical functioning 12/03/2021 Continue Effexor 112 Seroquel 50 at bedtime patient's diet was able to be increased 12/04/2022 Increase Effexor to 150 mg continue physical therapy on the unit reviewed cognitive behavioral and positive supports Stop Seroquel will try olanzapine 2.5 mg at bedtime 12/05/2022 Patient seems improved with increase Effexor and change to olanzapine no further change at this time swallowing improved with chopped diet has discharge planning meeting coming up in 3 days 12/06: Continue current regimen and plans 12/07: Continue current plans and regimen No change of treatment on 12/13 and 12/14 Informed Consent: understands Reason for contiued inpatient stay Substantial Risk for: inability to function, rapid decompensation and med/psych decompensation Time Spent With Patient Time: Total time managing care of this patient today _20___ minutes.
[2022-12-14] MEDS: Multivitamin TABLET 1 TAB PO (09:06)
[2022-12-14] MEDS: Finasteride 5 MG TABLET PO (09:06)
[2022-12-14] MEDS: amLODIPine Besylate 5 MG TABLET PO (09:07)
[2022-12-14] MEDS: Venlafaxine HCl ER 150 MG CAP.ER.24H PO (09:07)
[2022-12-14] MEDS: Cholecalciferol (Vitamin D3) 10 MCG TABLET PO (09:15)
[2022-12-14] MEDS: lisinopriL 20 MG TABLET PO (09:15)
[2022-12-14] MEDS: Gabapentin 300 MG CAPSULE PO ×3 (09:15→21:44)
[2022-12-14] MEDS: Naltrexone HCl 50 MG TABLET PO (09:15)
[2022-12-14] MEDS: Tamsulosin HCL 0.4 MG CAPSULE PO (09:16)
[2022-12-14] MEDS: Lidocaine 5 % Ointment 35 GM 1 APPL TOPICAL ×2 (09:19→21:59)
[2022-12-14] MEDS: calcium polycarbophiL TABLET 1 TAB PO (09:42)
[2022-12-14] MEDS: lamoTRIgine 25 MG TABLET 150 MG PO ×2 (10:41→21:43)
[2022-12-14] MEDS: Ondansetron ODT 4 MG TAB.RAPDIS TRANSLINGU (12:32)
[2022-12-14] MEDS: LORazepam 0.5 MG TABLET PO (12:32)
[2022-12-14] MEDS: polyethylene glycoL 3350 17 GM POWD.PACK PO (14:46)
[2022-12-14 18:00] VITALS: BP 110/64; PULSE 73; RESP 18; TEMP 36.2; O2SAT 95
[2022-12-14] MEDS: Melatonin 3 MG TABLET 9 MG PO (21:43)
[2022-12-14] MEDS: traZODone HCL 100 MG TABLET 200 MG PO (21:44)
[2022-12-14] MEDS: Nortriptyline HCl 25 MG CAPSULE 50 MG PO (21:44)
[2022-12-14] MEDS: OLANZapine 2.5 MG TABLET PO (21:44)
[2022-12-14] MEDS: Latanoprost 0.005 % Ophth Sol 2.5 ML DROPS 1 DROP EYE-BOTH (21:58)
[2022-12-14] MEDS: traZODone HCL 50 MG TABLET PO (23:34)
[2022-12-15] MEDS: Omeprazole 20 MG CAPSULE.DR PO ×2 (06:34→16:39)
[2022-12-15 07:30] VITALS: BP 113/74; PULSE 79; RESP 16; TEMP 36.7; O2SAT 95
[2022-12-15] MEDS: lamoTRIgine 25 MG TABLET 150 MG PO ×2 (10:35→22:30)
[2022-12-15] MEDS: Finasteride 5 MG TABLET PO (10:35)
[2022-12-15] MEDS: Cholecalciferol (Vitamin D3) 10 MCG TABLET PO (10:35)
[2022-12-15] MEDS: Tamsulosin HCL 0.4 MG CAPSULE PO (10:36)
[2022-12-15] MEDS: Naltrexone HCl 50 MG TABLET PO (10:36)
[2022-12-15] MEDS: Gabapentin 300 MG CAPSULE PO ×3 (10:36→22:31)
[2022-12-15] MEDS: calcium polycarbophiL TABLET 1 TAB PO (10:36)
[2022-12-15] MEDS: lisinopriL 20 MG TABLET PO (10:36)
[2022-12-15] MEDS: Multivitamin TABLET 1 TAB PO (10:37)
[2022-12-15] MEDS: amLODIPine Besylate 5 MG TABLET PO (10:37)
[2022-12-15] MEDS: Venlafaxine HCl ER 150 MG CAP.ER.24H PO (10:37)
--- NOTE | 2022-12-15 13:09 | P.PNPSI_ITS ---
Subjective Subjective Date of Service: 12/15/22 Reason For Visit: Depression hopelessness irritability Subjective Notes: Conditional Voluntary Interim History: Pt reports feeling anxious more so yesterday and today. He reports intermittent suicidal ideation. He denies any plan or intent to harm himself. He asks for something for anxiety. We reviewed current medications, will try higher dose of atarax. Per nursing, no behavioral concerns. Medication Compliance: Yes Side effects from medications: No Mental Status Exam Mental Status Exam Narrative: Appearance: casually groomed, good hygiene, in NAD Behavior: cooperative Psychomotor: no agitation or retardation noted Speech: clear, some delayed in response, soft tone, spontaneous TP: tangential TC: no psychosis, feeling too anxious Mood: anxious Affect: brighter, calmer than reported mood SI: intermittent, passive, chronic HI: none Delusions: none Insight/judgment: fair x 2. Memory/cog: alert, oriented x 3. not formally tested. Diagnostics Vital Signs (24Hr): Vital Signs - 24 hr 12/14/22 18:00 12/15/22 07:30 Temperature 97.2 F 98.1 F Pulse Rate 73 79 Respiratory Rate 18 16 Blood Pressure 110/64 113/74 Pulse Oximetry 95 95 Oxygen Delivery Method Room Air Room Air BMI result Body Mass Index 30.2 Labs 11/13/22 07:43 11/12/22 09:32 Imaging Radiology Impressions: ITS Impressions Chest X-Ray 10/20/22 15:45 IMPRESSION: 1. Low lung volumes with bibasilar linear disc atelectasis versus scarring. 2. No airspace consolidation or effusion. Head CT 11/08/22 12:29 IMPRESSION: No acute intracranial hemorrhage or territorial infarction. Stable chronic postoperative changes with gliosis and encephalomalacia in the right frontal and right temporal lobes. Ex vacuo dilatation of the ventricles and diffuse parenchymal volume loss. Right-sided craniotomy changes. Chest X-Ray 11/12/22 10:32 IMPRESSION: Hypoexpanded lungs with bibasilar platelike atelectasis. Brain MRI 11/12/22 13:15 IMPRESSION: 1. No demonstrated acute intracranial abnormalities. 2. Chronic encephalomalacia of the right temporal, right frontal, and left occipital lobes. Small regions of chronic encephalomalacia in the parasagittal aspects of the bilateral parietal lobes. Moderate underlying microangiopathy and generalized cerebral volume loss. Chest X-Ray 11/14/22 15:52 IMPRESSION: Low lung volumes, bibasilar subsegmental atelectasis and slight elevation of the right hemidiaphragm similar to previous exam. Modified Barium Swallow 11/21/22 15:11 IMPRESSION: Laryngeal penetration on several occasions but no laryngeal aspiration. Mild retention of solid food in the valleculae which cleared with subsequent oral administration of water or thin barium. Correlate with speech therapy results. Medications Medications Current Medications Acetaminophen (Acetaminophen 325 Mg Tablet) 650 mg PO Q6H PRN PRN Reason: Headache/Pain Mild Scale (1-3) Last Admin: 12/14/22 04:05 Dose: 650 mg Al Hydroxide/Mg Hydroxide (Magnesium Hydrox/Alum Hydrox 30 Ml Oral.Susp) 30 ml PO Q6H PRN PRN Reason: Heartburn/Nausea Last Admin: 11/22/22 21:39 Dose: 30 ml Albuterol Sulfate (Albuterol Sulfate 90 Mcg 8 Gm Inhaler) 2 puff INHALE Q6H PRN PRN Reason: Wheezing Amlodipine Besylate (Amlodipine Besylate 5 Mg Tablet) 5 mg PO DAILY [facility]; Protocol Last Admin: 12/15/22 10:37 Dose: 5 mg Benzocaine (Throat Lozenge, Medicated Lozenge) 1 lozenge MUCOUS MEM Q2H PRN PRN Reason: Sore Throat Last Admin: 11/12/22 03:08 Dose: 1 lozenge Calcium Polycarbophil (Calcium Polycarbophil Tablet) 1 tab PO DAILY TAZ Last Admin: 12/15/22 10:36 Dose: 1 tab Docusate Sodium (Docusate Sodium 100 Mg Capsule) 100 mg PO DAILY PRN PRN Reason: constipation Last Admin: 12/13/22 01:31 Dose: 100 mg Finasteride (Finasteride 5 Mg Tablet) 5 mg PO DAILY [facility] Last Admin: 12/15/22 10:35 Dose: 5 mg Gabapentin (Gabapentin 300 Mg Capsule) 300 mg PO TID [facility] Last Admin: 12/15/22 10:36 Dose: 300 mg Guaifenesin/Dextromethorphan (Guaifenesin Dm 200/20/10 Ml 10 Ml Syrup) 10 ml PO Q4H PRN PRN Reason: Cough Last Admin: 11/20/22 05:31 Dose: 10 ml Hydroxyzine HCl (Hydroxyzine Hcl 50 Mg Tablet) 50 mg PO Q6H PRN PRN Reason: Anxiety Lamotrigine (Lamotrigine 25 Mg Tablet) 150 mg PO BID [facility] Last Admin: 12/15/22 10:35 Dose: 150 mg Latanoprost (Latanoprost 0.005 % Ophth No 2.5 Ml Drops) 1 drop EYE-BOTH BEDTIME [facility] Last Admin: 12/14/22 21:58 Dose: 1 drop Lidocaine (Lidocaine 5 % Ointment 35 Gm) 1 appl TOPICAL QID [facility] Last Admin: 12/15/22 10:37 Dose: Not Given Lisinopril (Lisinopril 20 Mg Tablet) 20 mg PO DAILY [facility]; Protocol Last Admin: 12/15/22 10:36 Dose: 20 mg Lorazepam (Lorazepam 0.5 Mg Tablet) 0.5 mg PO Q4H PRN PRN Reason: Anxiety Lorazepam (Lorazepam 1 Mg Tablet) 1 mg PO BEDTIME [facility] Magnesium Hydroxide (Milk Of Magnesia 30 Ml Oral.Susp) 30 ml PO DAILY PRN PRN Reason: Constipation Last Admin: 11/28/22 21:13 Dose: 30 ml Melatonin (Melatonin 3 Mg Tablet) 9 mg PO BEDTIME [facility] Last Admin: 12/14/22 21:43 Dose: 9 mg Multi-Ingred Cream/Lotion/Oil/Oint (Mineral Oil/Petrolatum,White 106 Gm Tube) 1 appl TOPICAL BID [facility]; Protocol Last Admin: 12/15/22 10:37 Dose: Not Given Multivitamins/Vitamin C (Multivitamin Tablet) 1 tab PO DAILY [facility] Last Admin: 12/15/22 10:37 Dose: 1 tab Naltrexone HCl (Naltrexone Hcl 50 Mg Tablet) 50 mg PO DAILY [facility] Last Admin: 12/15/22 10:36 Dose: 50 mg Nortriptyline HCl (Nortriptyline Hcl 25 Mg Capsule) 50 mg PO BEDTIME [facility] Last Admin: 12/14/22 21:44 Dose: 50 mg Olanzapine (Olanzapine 2.5 Mg Tablet) 2.5 mg PO BEDTIME [facility] Last Admin: 12/14/22 21:44 Dose: 2.5 mg Omeprazole (Omeprazole 20 Mg Capsule.Dr) 20 mg PO BID@0630,1630 [facility] Last Admin: 12/15/22 06:34 Dose: 20 mg Ondansetron HCl (Ondansetron Odt 4 Mg Tab.Rapdis) 4 mg TRANSLINGU Q6H PRN PRN Reason: Nausea and Vomiting Last Admin: 12/14/22 12:32 Dose: 4 mg Oxybutynin Chloride (Oxybutynin Chloride Er 5 Mg Tab.Er.24) 10 mg PO DAILY [facility] Last Admin: 12/15/22 10:35 Dose: 10 mg Polyethylene Glycol (Polyethylene Glycol 3350 17 Gm Powd.Pack) 17 gm PO DAILY@1600 [facility] Last Admin: 12/14/22 14:46 Dose: 17 gm Senna/Docusate Sodium (Sennosides/Docusate Sodium Tablet) 1 tab PO BID [facility] Tamsulosin HCl (Tamsulosin Hcl 0.4 Mg Capsule) 0.4 mg PO DAILY [facility] Last Admin: 12/15/22 10:36 Dose: 0.4 mg Trazodone HCl (Trazodone Hcl 100 Mg Tablet) 200 mg PO BEDTIME [facility] Last Admin: 12/14/22 21:44 Dose: 200 mg Trazodone HCl (Trazodone Hcl 50 Mg Tablet) 50 mg PO BEDTIME PRN PRN Reason: Insomnia Last Admin: 12/14/22 23:34 Dose: 50 mg Venlafaxine HCl (Venlafaxine Hcl Er 150 Mg Cap.Er.24h) 150 mg PO DAILY [facility] Last Admin: 12/15/22 10:37 Dose: 150 mg Vitamin D (Cholecalciferol (Vitamin D3) 10 Mcg Tablet) 10 mcg PO DAILY [facility] Last Admin: 12/15/22 10:35 Dose: 10 mcg Allergies Allergies Allergy/AdvReac Type Severity Reaction Status Date / Time fentanyl [FENTANYL] Allergy Intermediate unknown Verified 04/08/22 07:00 Assessment & Plan Assessment & Plan (1) Major depressive disorder, recurrent severe without psychotic features: Status: Acute Code(s): F33.2 - Major depressive disorder, recurrent severe without psychotic features (2) Cognitive and neurobehavioral dysfunction following brain injury: Status: Acute Code(s): G31.89 - Other specified degenerative diseases of nervous system; F09 - Unspecified mental disorder due to known physiological condition; S06.9X9S - Unspecified intracranial injury with loss of consciousness of unspecified duration, sequela (3) Swallowing dysfunction: Status: Acute Code(s): R13.10 - Dysphagia, unspecified Assessment and Plan: See specific swallowing plan Plan The patient is a 67-year-old male, , 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 At this moment also, he has problems of housing since he will not be able to go back to his regular residential.? The patient has a long history of alcohol use disorder that he was not able to process or work on it.? Plan 1. Continue with the same treatment.? 2. We will work with the psychosocial rehabilitation counselor and DDS for a proper discharge planning.? 3. Continue with recommendations of Wound Care. 4. Increase Seroquel up to 150 mg po qhs. 10/30/22 restart lorazepam 1 hs prn insomnia norterip inc 100 hs level in 50 s monitor ekg 11/01 continue current tx plan 11/02/22- Bedside Swallow eval. s/p choking episode on 11/01. 2021 Increase Lexapro encourage CBT skills need supportive coaching patient increasingly hopeless helpless denies active self-harm check nortriptyline level 11/05/2022 Check nortriptyline level patient on Seroquel nortriptyline Lexapro.? Needs much reassurance and support the has difficulty interacting at times secondary to a hopelessness irritability passive SI.? Patient has having difficulty maintaining his posture in his chair unclear why this is happening for discuss safety issues with nursing will need OT and potentially Pt input? 11/06/2022 Patient depressed and anxious tried to review cognitive behavioral perspectives ways to emotionally manage current situational factors.? Patient has for an extended period of time had great deal of difficulty with any emotional a mental coping strategies.? Will and lorazepam p.r.n. 0.5 mg to help with anxiety trying get clarity from DTS regarding transition to residential setting positive reinforcement for patient's efforts at physical conditioning becomes demoralized easily denies active self-harm 11/07 continue tx. 11/08 no changes, pt had unwitnessed fall and hit head, head CT negative 11/09 no changes 11/10 no changes 11/11 no changes 11/12/22 acute med w/u neg incentive spirometer cont medication cbt skills cont pt/ot 11/12 medical workout came back negative. No changes in current treatment 11/14/2022 Patient depressed withdrawn more fatigued 11/18/21 taper lexapro start effexor lower seroquel sec to fatigue 11/19/21 Seroquel lowered inc venlafax 11/21/21 Pt with swallowing problem motor dysfx lower gabapentin lower nortriptyline lower seroquel 11/22 continue tx. 11/23 continue tx. 11/24/2022 More alert with lowered gabapentin nortriptyline lorazepam lower Lamictal to 150 b.i.d. hope to improve patient's balance motor function and consideration swallowing dysfunction can try and taper down on Seroquel in case this is also a contributing factor 11/25/2022 Patient has been active with OT change to venlafaxine from Lexapro and lowering of nortriptyline seems show some improvement Discharge planning continues 11/26/2022 the patient reports worsening his mood being more depressed and anxious. We will discuss the case with Dr. Haskins. 11/27/2022 no changes on mental status, we will keep on the same treatment 11/29 continue current treatment plan 11/30 continue current treatment plan 12/02/2022 Effexor was increased to 112.5 mg Seroquel have been lower to 50 mg and Mirapex discontinued hope being this will improve physical functioning 12/03/2021 Continue Effexor 112 Seroquel 50 at bedtime patient's diet was able to be increased 12/04/2022 Increase Effexor to 150 mg continue physical therapy on the unit reviewed cognitive behavioral and positive supports Stop Seroquel will try olanzapine 2.5 mg at bedtime 12/05/2022 Patient seems improved with increase Effexor and change to olanzapine no further change at this time swallowing improved with chopped diet has discharge planning meeting coming up in 3 days 12/06: Continue current regimen and plans 12/07: Continue current plans and regimen No change of treatment on 12/13 and 12/14 12/15- d/c metamucil, scheduled colace/senna, continue miralax. Increase atarax for anxiety- monitor excessive sedation, in combination with anticholinergic medications. Reason for contiued inpatient stay Substantial Risk for: harm to self Time Spent With Patient Time: Total time managing care of this patient today ____ minutes.
[2022-12-15] MEDS: hydrOXYzine HCL 50 MG TABLET PO (14:08)
[2022-12-15] MEDS: LORazepam 0.5 MG TABLET PO (14:08)
[2022-12-15] MEDS: polyethylene glycoL 3350 17 GM POWD.PACK PO (16:39)
[2022-12-15] MEDS: Acetaminophen 325 MG TABLET 650 MG PO ×2 (17:22→22:41)
[2022-12-15 18:00] VITALS: BP 154/68; PULSE 80; RESP 16; TEMP 36.1; O2SAT 98
[2022-12-15] MEDS: LORazepam 1 MG TABLET PO (22:32)
[2022-12-15] MEDS: Sennosides/Docusate Sodium TABLET 1 TAB PO (22:33)
[2022-12-15] MEDS: traZODone HCL 100 MG TABLET 200 MG PO (22:33)
[2022-12-15] MEDS: Nortriptyline HCl 25 MG CAPSULE 50 MG PO (22:34)
[2022-12-15] MEDS: Melatonin 3 MG TABLET 9 MG PO (22:35)
[2022-12-15] MEDS: Mineral Oil/Petrolatum,White 106 GM Tube 1 APPL TOPICAL (22:35)
[2022-12-15] MEDS: Lidocaine 5 % Ointment 35 GM 1 APPL TOPICAL (22:35)
[2022-12-15] MEDS: Latanoprost 0.005 % Ophth Sol 2.5 ML DROPS 1 DROP EYE-BOTH (22:36)
[2022-12-15] MEDS: OLANZapine 2.5 MG TABLET PO (22:54)
[2022-12-16] MEDS: traZODone HCL 50 MG TABLET PO (01:52)
[2022-12-16] MEDS: hydrOXYzine HCL 50 MG TABLET PO ×2 (01:53→11:15)
[2022-12-16] MEDS: Omeprazole 20 MG CAPSULE.DR PO (04:34)
[2022-12-16] MEDS: LORazepam 0.5 MG TABLET PO (04:34)
[2022-12-16 07:30] VITALS: BP 114/59; PULSE 79; RESP 16; TEMP 36.2; O2SAT 96
[2022-12-16] MEDS: Finasteride 5 MG TABLET PO (11:01)
[2022-12-16] MEDS: lamoTRIgine 25 MG TABLET 150 MG PO ×2 (11:01→21:08)
[2022-12-16] MEDS: calcium polycarbophiL TABLET 1 TAB PO (11:01)
[2022-12-16] MEDS: Multivitamin TABLET 1 TAB PO (11:02)
[2022-12-16] MEDS: lisinopriL 20 MG TABLET PO (11:02)
[2022-12-16] MEDS: Venlafaxine HCl ER 150 MG CAP.ER.24H PO (11:02)
[2022-12-16] MEDS: Cholecalciferol (Vitamin D3) 10 MCG TABLET PO (11:02)
[2022-12-16] MEDS: Naltrexone HCl 50 MG TABLET PO (11:03)
[2022-12-16] MEDS: Sennosides/Docusate Sodium TABLET 1 TAB PO ×2 (11:03→21:14)
[2022-12-16] MEDS: Tamsulosin HCL 0.4 MG CAPSULE PO (11:03)
[2022-12-16] MEDS: amLODIPine Besylate 5 MG TABLET PO (11:03)
[2022-12-16] MEDS: Gabapentin 300 MG CAPSULE PO ×3 (11:04→21:07)
--- NOTE | 2022-12-16 14:25 | HO.PSYCHPN ---
Subjective Subjective Date of Service: 12/16/22 Reason For Visit: Depression hopelessness irritability Subjective Notes: Conditional Voluntary Interim History: Pt reports he slept much better last night. He reports he had less black tea yesterday to limit caffeine intake. He reports atarax helping as alternative for anxiety, feels 50mg, better than 25mg. He denies SI/HI. He has been visible on the unit, no behavioral concerns. Medication Compliance: Yes Side effects from medications: No Review of Systems Review of Systems Yes Unobtainable due to mental condition and Unobtainable due to mental status Mental Status Exam Mental Status Exam Narrative: Appearance: casually groomed, good hygiene, in NAD Behavior: cooperative Psychomotor: no agitation or retardation noted Speech: clear, some delayed in response, soft tone, spontaneous TP: tangential TC: no psychosis, feeling too anxious Mood: anxious Affect: brighter, calmer than reported mood SI: not today, but tends to be intermittent, passive, chronic HI: none Delusions: none Insight/judgment: fair x 2. Memory/cog: alert, oriented x 3. not formally tested. Diagnostics Vital Signs (24Hr): Vital Signs - 24 hr 12/16/22 20:37 Temperature 96.9 F Pulse Rate 69 Respiratory Rate 18 Blood Pressure 124/68 Pulse Oximetry 97 Oxygen Delivery Method Room Air BMI result Body Mass Index 30.2 Labs 11/13/22 07:43 11/12/22 09:32 Imaging Radiology Impressions: ITS Impressions Chest X-Ray 10/20/22 15:45 IMPRESSION: 1. Low lung volumes with bibasilar linear disc atelectasis versus scarring. 2. No airspace consolidation or effusion. Head CT 11/08/22 12:29 IMPRESSION: No acute intracranial hemorrhage or territorial infarction. Stable chronic postoperative changes with gliosis and encephalomalacia in the right frontal and right temporal lobes. Ex vacuo dilatation of the ventricles and diffuse parenchymal volume loss. Right-sided craniotomy changes. Chest X-Ray 11/12/22 10:32 IMPRESSION: Hypoexpanded lungs with bibasilar platelike atelectasis. Brain MRI 11/12/22 13:15 IMPRESSION: 1. No demonstrated acute intracranial abnormalities. 2. Chronic encephalomalacia of the right temporal, right frontal, and left occipital lobes. Small regions of chronic encephalomalacia in the parasagittal aspects of the bilateral parietal lobes. Moderate underlying microangiopathy and generalized cerebral volume loss. Chest X-Ray 11/14/22 15:52 IMPRESSION: Low lung volumes, bibasilar subsegmental atelectasis and slight elevation of the right hemidiaphragm similar to previous exam. Modified Barium Swallow 11/21/22 15:11 IMPRESSION: Laryngeal penetration on several occasions but no laryngeal aspiration. Mild retention of solid food in the valleculae which cleared with subsequent oral administration of water or thin barium. Correlate with speech therapy results. Medications Medications Current Medications Acetaminophen (Acetaminophen 325 Mg Tablet) 650 mg PO Q6H PRN PRN Reason: Headache/Pain Mild Scale (1-3) Last Admin: 12/17/22 03:54 Dose: 650 mg Al Hydroxide/Mg Hydroxide (Magnesium Hydrox/Alum Hydrox 30 Ml Oral.Susp) 30 ml PO Q6H PRN PRN Reason: Heartburn/Nausea Last Admin: 11/22/22 21:39 Dose: 30 ml Albuterol Sulfate (Albuterol Sulfate 90 Mcg 8 Gm Inhaler) 2 puff INHALE Q6H PRN PRN Reason: Wheezing Amlodipine Besylate (Amlodipine Besylate 5 Mg Tablet) 5 mg PO DAILY TAZ; Protocol Last Admin: 12/16/22 11:03 Dose: 5 mg Benzocaine (Throat Lozenge, Medicated Lozenge) 1 lozenge MUCOUS MEM Q2H PRN PRN Reason: Sore Throat Last Admin: 11/12/22 03:08 Dose: 1 lozenge Calcium Polycarbophil (Calcium Polycarbophil Tablet) 1 tab PO DAILY TAZ Last Admin: 12/16/22 11:01 Dose: 1 tab Docusate Sodium (Docusate Sodium 100 Mg Capsule) 100 mg PO DAILY PRN PRN Reason: constipation Last Admin: 12/13/22 01:31 Dose: 100 mg Finasteride (Finasteride 5 Mg Tablet) 5 mg PO DAILY TAZ Last Admin: 12/16/22 11:01 Dose: 5 mg Gabapentin (Gabapentin 300 Mg Capsule) 300 mg PO TID TAZ Last Admin: 12/16/22 21:07 Dose: 300 mg Guaifenesin/Dextromethorphan (Guaifenesin Dm 200/20/10 Ml 10 Ml Syrup) 10 ml PO Q4H PRN PRN Reason: Cough Last Admin: 11/20/22 05:31 Dose: 10 ml Hydroxyzine HCl (Hydroxyzine Hcl 50 Mg Tablet) 50 mg PO Q6H PRN PRN Reason: Anxiety Last Admin: 12/16/22 11:15 Dose: 50 mg Lamotrigine (Lamotrigine 25 Mg Tablet) 150 mg PO BID [facility] Last Admin: 12/16/22 21:08 Dose: 150 mg Latanoprost (Latanoprost 0.005 % Ophth No 2.5 Ml Drops) 1 drop EYE-BOTH BEDTIME TAZ Last Admin: 12/16/22 21:16 Dose: 1 drop Lidocaine (Lidocaine 5 % Ointment 35 Gm) 1 appl TOPICAL QID [facility] Last Admin: 12/16/22 20:51 Dose: Not Given Lisinopril (Lisinopril 20 Mg Tablet) 20 mg PO DAILY [facility]; Protocol Last Admin: 12/16/22 11:02 Dose: 20 mg Lorazepam (Lorazepam 0.5 Mg Tablet) 0.5 mg PO Q4H PRN PRN Reason: Anxiety Last Admin: 12/16/22 04:34 Dose: 0.5 mg Lorazepam (Lorazepam 1 Mg Tablet) 1 mg PO BEDTIME ATZ Last Admin: 12/16/22 21:12 Dose: 1 mg Magnesium Hydroxide (Milk Of Magnesia 30 Ml Oral.Susp) 30 ml PO DAILY PRN PRN Reason: Constipation Last Admin: 11/28/22 21:13 Dose: 30 ml Melatonin (Melatonin 3 Mg Tablet) 9 mg PO BEDTIME TAZ Last Admin: 12/16/22 21:15 Dose: 9 mg Multi-Ingred Cream/Lotion/Oil/Oint (Mineral Oil/Petrolatum,White 106 Gm Tube) 1 appl TOPICAL BID TAZ; Protocol Last Admin: 12/16/22 21:19 Dose: 1 appl Multivitamins/Vitamin C (Multivitamin Tablet) 1 tab PO DAILY TAZ Last Admin: 12/16/22 11:02 Dose: 1 tab Naltrexone HCl (Naltrexone Hcl 50 Mg Tablet) 50 mg PO DAILY TAZ Last Admin: 12/16/22 11:03 Dose: 50 mg Nortriptyline HCl (Nortriptyline Hcl 25 Mg Capsule) 50 mg PO BEDTIME TAZ Last Admin: 12/16/22 21:14 Dose: 50 mg Olanzapine (Olanzapine 2.5 Mg Tablet) 2.5 mg PO BEDTIME TAZ Last Admin: 12/16/22 21:10 Dose: 2.5 mg Omeprazole (Omeprazole 20 Mg Capsule.Dr) 20 mg PO BID@0630,1630 [facility] Last Admin: 12/17/22 03:55 Dose: 20 mg Ondansetron HCl (Ondansetron Odt 4 Mg Tab.Rapdis) 4 mg TRANSLINGU Q6H PRN PRN Reason: Nausea and Vomiting Last Admin: 12/14/22 12:32 Dose: 4 mg Oxybutynin Chloride (Oxybutynin Chloride Er 5 Mg Tab.Er.24) 10 mg PO DAILY [facility] Last Admin: 12/16/22 11:02 Dose: 10 mg Polyethylene Glycol (Polyethylene Glycol 3350 17 Gm Powd.Pack) 17 gm PO DAILY@1600 [facility] Last Admin: 12/16/22 16:28 Dose: 17 gm Senna/Docusate Sodium (Sennosides/Docusate Sodium Tablet) 1 tab PO BID [facility] Last Admin: 12/16/22 21:14 Dose: 1 tab Tamsulosin HCl (Tamsulosin Hcl 0.4 Mg Capsule) 0.4 mg PO DAILY [facility] Last Admin: 12/16/22 11:03 Dose: 0.4 mg Trazodone HCl (Trazodone Hcl 100 Mg Tablet) 200 mg PO BEDTIME [facility] Last Admin: 12/16/22 21:10 Dose: 200 mg Trazodone HCl (Trazodone Hcl 50 Mg Tablet) 50 mg PO BEDTIME PRN PRN Reason: Insomnia Last Admin: 12/16/22 01:52 Dose: 50 mg Venlafaxine HCl (Venlafaxine Hcl Er 150 Mg Cap.Er.24h) 150 mg PO DAILY [facility] Last Admin: 12/16/22 11:02 Dose: 150 mg Vitamin D (Cholecalciferol (Vitamin D3) 10 Mcg Tablet) 10 mcg PO DAILY [facility] Last Admin: 12/16/22 11:02 Dose: 10 mcg Allergies Allergies Allergy/AdvReac Type Severity Reaction Status Date / Time fentanyl [FENTANYL] Allergy Intermediate unknown Verified 04/08/22 07:00 Assessment & Plan Assessment & Plan (1) Major depressive disorder, recurrent severe without psychotic features: Status: Acute Code(s): F33.2 - Major depressive disorder, recurrent severe without psychotic features (2) Cognitive and neurobehavioral dysfunction following brain injury: Status: Acute Code(s): G31.89 - Other specified degenerative diseases of nervous system; F09 - Unspecified mental disorder due to known physiological condition; S06.9X9S - Unspecified intracranial injury with loss of consciousness of unspecified duration, sequela (3) Swallowing dysfunction: Status: Acute Code(s): R13.10 - Dysphagia, unspecified Assessment and Plan: See specific swallowing plan Plan The patient is a 67-year-old male, , 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 At this moment also, he has problems of housing since he will not be able to go back to his regular [place] [facility].? The patient has a long history of alcohol use disorder that he was not able to process or work on it.? Plan 1. Continue with the same treatment.? 2. We will work with the social services assistant and DDS for a proper discharge planning.? 3. Continue with recommendations of Wound Care. 4. Increase Seroquel up to 150 mg po qhs. 10/30/22 restart lorazepam 1 hs prn insomnia norterip inc 100 hs level in 50 s monitor ekg 11/01 continue current tx plan 11/02/22- Bedside Swallow eval. s/p choking episode on 11/01. 2021 Increase Lexapro encourage CBT skills need supportive coaching patient increasingly hopeless helpless denies active self-harm check nortriptyline level 11/05/2022 Check nortriptyline level patient on Seroquel nortriptyline Lexapro.? Needs much reassurance and support the has difficulty interacting at times secondary to a hopelessness irritability passive SI.? Patient has having difficulty maintaining his posture in his chair unclear why this is happening for discuss safety issues with nursing will need OT and potentially Pt input? 11/06/2022 Patient depressed and anxious tried to review cognitive behavioral perspectives ways to emotionally manage current situational factors.? Patient has for an extended period of time had great deal of difficulty with any emotional a mental coping strategies.? Will and lorazepam p.r.n. 0.5 mg to help with anxiety trying get clarity from DTS regarding transition to [place] [facility] setting positive reinforcement for patient's efforts at physical conditioning becomes demoralized easily denies active self-harm 11/07 continue tx. 11/08 no changes, pt had unwitnessed fall and hit head, head CT negative 11/09 no changes 11/10 no changes 11/11 no changes 11/12/22 acute med w/u neg incentive spirometer cont medication cbt skills cont pt/ot 11/12 medical workout came back negative. No changes in current treatment 11/14/2022 Patient depressed withdrawn more fatigued 11/18/21 taper lexapro start effexor lower seroquel sec to fatigue 11/19/21 Seroquel lowered inc venlafax 11/21/21 Pt with swallowing problem motor dysfx lower gabapentin lower nortriptyline lower seroquel 11/22 continue tx. 11/23 continue tx. 11/24/2022 More alert with lowered gabapentin nortriptyline lorazepam lower Lamictal to 150 b.i.d. hope to improve patient's balance motor function and consideration swallowing dysfunction can try and taper down on Seroquel in case this is also a contributing factor 11/25/2022 Patient has been active with OT change to venlafaxine from Lexapro and lowering of nortriptyline seems show some improvement Discharge planning continues 11/26/2022 the patient reports worsening his mood being more depressed and anxious. We will discuss the case with Dr. Haskins. 11/27/2022 no changes on mental status, we will keep on the same treatment 11/29 continue current treatment plan 11/30 continue current treatment plan 12/02/2022 Effexor was increased to 112.5 mg Seroquel have been lower to 50 mg and Mirapex discontinued hope being this will improve physical functioning 12/03/2021 Continue Effexor 112 Seroquel 50 at bedtime patient's diet was able to be increased 12/04/2022 Increase Effexor to 150 mg continue physical therapy on the unit reviewed cognitive behavioral and positive supports Stop Seroquel will try olanzapine 2.5 mg at bedtime 12/05/2022 Patient seems improved with increase Effexor and change to olanzapine no further change at this time swallowing improved with chopped diet has discharge planning meeting coming up in 3 days 12/06: Continue current regimen and plans 12/07: Continue current plans and regimen No change of treatment on 12/13 and 12/14 12/15- d/c metamucil, scheduled colace/senna, continue miralax. Increase atarax for anxiety- monitor excessive sedation, in combination with anticholinergic medications. 12/16 continue current medications. Reason for contiued inpatient stay Substantial Risk for: inability to function Time Spent With Patient Time: Total time managing care of this patient today ____ minutes.
[2022-12-16] MEDS: polyethylene glycoL 3350 17 GM POWD.PACK PO (16:28)
[2022-12-16 20:37] VITALS: BP 124/68; PULSE 69; RESP 18; TEMP 36.1; O2SAT 97
[2022-12-16] MEDS: Acetaminophen 325 MG TABLET 650 MG PO (20:49)
[2022-12-16] MEDS: traZODone HCL 100 MG TABLET 200 MG PO (21:10)
[2022-12-16] MEDS: OLANZapine 2.5 MG TABLET PO (21:10)
[2022-12-16] MEDS: LORazepam 1 MG TABLET PO (21:12)
[2022-12-16] MEDS: Nortriptyline HCl 25 MG CAPSULE 50 MG PO (21:14)
[2022-12-16] MEDS: Melatonin 3 MG TABLET 9 MG PO (21:15)
[2022-12-16] MEDS: Latanoprost 0.005 % Ophth Sol 2.5 ML DROPS 1 DROP EYE-BOTH (21:16)
[2022-12-16] MEDS: Mineral Oil/Petrolatum,White 106 GM Tube 1 APPL TOPICAL (21:19)
[2022-12-17] MEDS: Acetaminophen 325 MG TABLET 650 MG PO ×3 (03:54→20:58)
[2022-12-17] MEDS: Omeprazole 20 MG CAPSULE.DR PO ×2 (03:55→15:44)
--- NOTE | 2022-12-17 03:56 | PC.NURSE ---
PT requested am Prilosec early and received it in order not to be woken up again at 6am.
[2022-12-17 06:00] VITALS: BP 107/60; PULSE 91; RESP 16; TEMP 36.7; O2SAT 97
[2022-12-17] MEDS: Gabapentin 300 MG CAPSULE PO ×3 (09:24→21:17)
[2022-12-17] MEDS: calcium polycarbophiL TABLET 1 TAB PO (09:24)
[2022-12-17] MEDS: lisinopriL 20 MG TABLET PO (09:24)
[2022-12-17] MEDS: Venlafaxine HCl ER 150 MG CAP.ER.24H PO (09:25)
[2022-12-17] MEDS: amLODIPine Besylate 5 MG TABLET PO (09:25)
[2022-12-17] MEDS: Tamsulosin HCL 0.4 MG CAPSULE PO (09:25)
[2022-12-17] MEDS: lamoTRIgine 25 MG TABLET 150 MG PO ×2 (09:25→21:09)
[2022-12-17] MEDS: Cholecalciferol (Vitamin D3) 10 MCG TABLET PO (09:25)
[2022-12-17] MEDS: Sennosides/Docusate Sodium TABLET 1 TAB PO ×2 (09:25→21:14)
[2022-12-17] MEDS: Finasteride 5 MG TABLET PO (09:25)
[2022-12-17] MEDS: Multivitamin TABLET 1 TAB PO (09:25)
[2022-12-17] MEDS: Naltrexone HCl 50 MG TABLET PO (09:25)
[2022-12-17] MEDS: hydrOXYzine HCL 50 MG TABLET PO ×3 (11:30→21:06)
--- NOTE | 2022-12-17 11:39 | HO.PSYCHPN ---
Subjective Subjective Date of Service: 12/17/22 Reason For Visit: Depression hopelessness irritability Subjective Notes: Conditional Voluntary Interim History: Pt reports feeling frustrated with particular peers, despite knowing that peer is leaving in few hours. Pt reports he slept good last night. No SI/HI. No signs of aggression. Visible in common area. Per nursing, pt slept through the night, reminded of boundaries to order things from unit or have staff buy things for him. Medication Compliance: Yes Review of Systems Review of Systems Yes Unobtainable due to mental condition and Unobtainable due to mental status Mental Status Exam Mental Status Exam Narrative: Appearance: casually groomed, good hygiene, in NAD Behavior: cooperative Psychomotor: no agitation or retardation noted Speech: clear, some delayed in response, soft tone, spontaneous TP: tangential TC: no psychosis, feeling too anxious Mood: anxious Affect: brighter, calmer than reported mood SI: not today, but tends to be intermittent, passive, chronic HI: none Delusions: none Insight/judgment: fair x 2. Memory/cog: alert, oriented x 3. not formally tested. Diagnostics Vital Signs (24Hr): Vital Signs - 24 hr 12/18/22 10:30 12/18/22 21:00 Temperature 97.1 F 97.0 F Pulse Rate 74 72 Respiratory Rate 18 18 Blood Pressure 122/68 121/59 L Pulse Oximetry 96 97 Oxygen Delivery Method Room Air Room Air BMI result Body Mass Index 30.2 Labs 11/13/22 07:43 11/12/22 09:32 Imaging Radiology Impressions: ITS Impressions Chest X-Ray 10/20/22 15:45 IMPRESSION: 1. Low lung volumes with bibasilar linear disc atelectasis versus scarring. 2. No airspace consolidation or effusion. Head CT 11/08/22 12:29 IMPRESSION: No acute intracranial hemorrhage or territorial infarction. Stable chronic postoperative changes with gliosis and encephalomalacia in the right frontal and right temporal lobes. Ex vacuo dilatation of the ventricles and diffuse parenchymal volume loss. Right-sided craniotomy changes. Chest X-Ray 11/12/22 10:32 IMPRESSION: Hypoexpanded lungs with bibasilar platelike atelectasis. Brain MRI 11/12/22 13:15 IMPRESSION: 1. No demonstrated acute intracranial abnormalities. 2. Chronic encephalomalacia of the right temporal, right frontal, and left occipital lobes. Small regions of chronic encephalomalacia in the parasagittal aspects of the bilateral parietal lobes. Moderate underlying microangiopathy and generalized cerebral volume loss. Chest X-Ray 11/14/22 15:52 IMPRESSION: Low lung volumes, bibasilar subsegmental atelectasis and slight elevation of the right hemidiaphragm similar to previous exam. Modified Barium Swallow 11/21/22 15:11 IMPRESSION: Laryngeal penetration on several occasions but no laryngeal aspiration. Mild retention of solid food in the valleculae which cleared with subsequent oral administration of water or thin barium. Correlate with speech therapy results. Medications Medications Current Medications Acetaminophen (Acetaminophen 325 Mg Tablet) 650 mg PO Q6H PRN PRN Reason: Headache/Pain Mild Scale (1-3) Last Admin: 12/18/22 22:14 Dose: 650 mg Al Hydroxide/Mg Hydroxide (Magnesium Hydrox/Alum Hydrox 30 Ml Oral.Susp) 30 ml PO Q6H PRN PRN Reason: Heartburn/Nausea Last Admin: 11/22/22 21:39 Dose: 30 ml Albuterol Sulfate (Albuterol Sulfate 90 Mcg 8 Gm Inhaler) 2 puff INHALE Q6H PRN PRN Reason: Wheezing Amlodipine Besylate (Amlodipine Besylate 5 Mg Tablet) 5 mg PO DAILY [facility]; Protocol Last Admin: 12/18/22 11:06 Dose: 5 mg Benzocaine (Throat Lozenge, Medicated Lozenge) 1 lozenge MUCOUS MEM Q2H PRN PRN Reason: Sore Throat Last Admin: 11/12/22 03:08 Dose: 1 lozenge Calcium Polycarbophil (Calcium Polycarbophil Tablet) 1 tab PO DAILY TAZ Last Admin: 12/18/22 11:07 Dose: 1 tab Docusate Sodium (Docusate Sodium 100 Mg Capsule) 100 mg PO DAILY PRN PRN Reason: constipation Last Admin: 12/13/22 01:31 Dose: 100 mg Finasteride (Finasteride 5 Mg Tablet) 5 mg PO DAILY [facility] Last Admin: 12/18/22 11:08 Dose: 5 mg Gabapentin (Gabapentin 300 Mg Capsule) 300 mg PO TID TAZ Last Admin: 12/18/22 22:08 Dose: 300 mg Guaifenesin/Dextromethorphan (Guaifenesin Dm 200/20/10 Ml 10 Ml Syrup) 10 ml PO Q4H PRN PRN Reason: Cough Last Admin: 11/20/22 05:31 Dose: 10 ml Hydroxyzine HCl (Hydroxyzine Hcl 50 Mg Tablet) 50 mg PO Q4H PRN PRN Reason: Anxiety Last Admin: 12/19/22 02:58 Dose: 50 mg Lamotrigine (Lamotrigine 25 Mg Tablet) 50 mg PO BID [facility] Last Admin: 12/18/22 22:05 Dose: 50 mg Lamotrigine (Lamotrigine 100 Mg Tablet) 100 mg PO BID [facility] Last Admin: 12/18/22 22:04 Dose: 100 mg Latanoprost (Latanoprost 0.005 % Ophth No 2.5 Ml Drops) 1 drop EYE-BOTH BEDTIME [facility] Last Admin: 12/18/22 22:13 Dose: 1 drop Lidocaine (Lidocaine 5 % Ointment 35 Gm) 1 appl TOPICAL QID [facility] Last Admin: 12/18/22 22:13 Dose: 1 appl Lisinopril (Lisinopril 20 Mg Tablet) 20 mg PO DAILY [facility]; Protocol Last Admin: 12/18/22 11:06 Dose: 20 mg Lorazepam (Lorazepam 0.5 Mg Tablet) 0.5 mg PO Q4H PRN PRN Reason: Anxiety Last Admin: 12/19/22 02:58 Dose: 0.5 mg Lorazepam (Lorazepam 1 Mg Tablet) 1 mg PO BEDTIME [facility] Last Admin: 12/18/22 22:06 Dose: 1 mg Magnesium Hydroxide (Milk Of Magnesia 30 Ml Oral.Susp) 30 ml PO DAILY PRN PRN Reason: Constipation Last Admin: 11/28/22 21:13 Dose: 30 ml Melatonin (Melatonin 3 Mg Tablet) 9 mg PO BEDTIME [facility] Last Admin: 12/18/22 22:07 Dose: 9 mg Multi-Ingred Cream/Lotion/Oil/Oint (Mineral Oil/Petrolatum,White 106 Gm Tube) 1 appl TOPICAL BID [facility]; Protocol Last Admin: 12/18/22 22:24 Dose: 1 appl Multivitamins/Vitamin C (Multivitamin Tablet) 1 tab PO DAILY [facility] Last Admin: 12/18/22 11:01 Dose: 1 tab Naltrexone HCl (Naltrexone Hcl 50 Mg Tablet) 50 mg PO DAILY [facility] Last Admin: 12/18/22 11:07 Dose: 50 mg Nortriptyline HCl (Nortriptyline Hcl 25 Mg Capsule) 50 mg PO BEDTIME [facility] Last Admin: 12/18/22 22:05 Dose: 50 mg Olanzapine (Olanzapine 2.5 Mg Tablet) 2.5 mg PO BEDTIME [facility] Last Admin: 12/18/22 22:09 Dose: 2.5 mg Omeprazole (Omeprazole 20 Mg Capsule.Dr) 20 mg PO BID@0630,1630 [facility] Last Admin: 12/19/22 06:47 Dose: 20 mg Ondansetron HCl (Ondansetron Odt 4 Mg Tab.Rapdis) 4 mg TRANSLINGU Q6H PRN PRN Reason: Nausea and Vomiting Last Admin: 12/17/22 12:26 Dose: 4 mg Oxybutynin Chloride (Oxybutynin Chloride Er 5 Mg Tab.Er.24) 10 mg PO DAILY [facility] Last Admin: 12/18/22 11:02 Dose: 10 mg Polyethylene Glycol (Polyethylene Glycol 3350 17 Gm Powd.Pack) 17 gm PO DAILY@1600 [facility] Last Admin: 12/18/22 15:37 Dose: 17 gm Senna/Docusate Sodium (Sennosides/Docusate Sodium Tablet) 1 tab PO BID [facility] Last Admin: 12/18/22 22:05 Dose: 1 tab Tamsulosin HCl (Tamsulosin Hcl 0.4 Mg Capsule) 0.4 mg PO DAILY [facility] Last Admin: 12/18/22 11:01 Dose: 0.4 mg Trazodone HCl (Trazodone Hcl 100 Mg Tablet) 200 mg PO BEDTIME [facility] Last Admin: 12/18/22 22:07 Dose: 200 mg Trazodone HCl (Trazodone Hcl 50 Mg Tablet) 50 mg PO BEDTIME PRN PRN Reason: Insomnia Last Admin: 12/19/22 00:10 Dose: 50 mg Venlafaxine HCl (Venlafaxine Hcl Er 150 Mg Cap.Er.24h) 150 mg PO DAILY [facility] Last Admin: 12/18/22 11:07 Dose: 150 mg Vitamin D (Cholecalciferol (Vitamin D3) 10 Mcg Tablet) 10 mcg PO DAILY [facility] Last Admin: 12/18/22 11:07 Dose: 10 mcg Allergies Allergies Allergy/AdvReac Type Severity Reaction Status Date / Time fentanyl [FENTANYL] Allergy Intermediate unknown Verified 04/08/22 07:00 Assessment & Plan Assessment & Plan (1) Major depressive disorder, recurrent severe without psychotic features: Status: Acute Code(s): F33.2 - Major depressive disorder, recurrent severe without psychotic features (2) Cognitive and neurobehavioral dysfunction following brain injury: Status: Acute Code(s): G31.89 - Other specified degenerative diseases of nervous system; F09 - Unspecified mental disorder due to known physiological condition; S06.9X9S - Unspecified intracranial injury with loss of consciousness of unspecified duration, sequela (3) Swallowing dysfunction: Status: Acute Code(s): R13.10 - Dysphagia, unspecified Assessment and Plan: See specific swallowing plan Plan The patient is a 67-year-old male, , 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 At this moment also, he has problems of housing since he will not be able to go back to his regular nursing home.? The patient has a long history of alcohol use disorder that he was not able to process or work on it.? Plan 1. Continue with the same treatment.? 2. We will work with the social service assistant and DDS for a proper discharge planning.? 3. Continue with recommendations of Wound Care. 4. Increase Seroquel up to 150 mg po qhs. 10/30/22 restart lorazepam 1 hs prn insomnia norterip inc 100 hs level in 50 s monitor ekg 11/01 continue current tx plan 11/02/22- Bedside Swallow eval. s/p choking episode on 11/01. 2021 Increase Lexapro encourage CBT skills need supportive coaching patient increasingly hopeless helpless denies active self-harm check nortriptyline level 11/05/2022 Check nortriptyline level patient on Seroquel nortriptyline Lexapro.? Needs much reassurance and support the has difficulty interacting at times secondary to a hopelessness irritability passive SI.? Patient has having difficulty maintaining his posture in his chair unclear why this is happening for discuss safety issues with nursing will need OT and potentially Pt input? 11/06/2022 Patient depressed and anxious tried to review cognitive behavioral perspectives ways to emotionally manage current situational factors.? Patient has for an extended period of time had great deal of difficulty with any emotional a mental coping strategies.? Will and lorazepam p.r.n. 0.5 mg to help with anxiety trying get clarity from DTS regarding transition to nursing home setting positive reinforcement for patient's efforts at physical conditioning becomes demoralized easily denies active self-harm 11/07 continue tx. 11/08 no changes, pt had unwitnessed fall and hit head, head CT negative 11/09 no changes 11/10 no changes 11/11 no changes 11/12/22 acute med w/u neg incentive spirometer cont medication cbt skills cont pt/ot 11/12 medical workout came back negative. No changes in current treatment 11/14/2022 Patient depressed withdrawn more fatigued 11/18/21 taper lexapro start effexor lower seroquel sec to fatigue 11/19/21 Seroquel lowered inc venlafax 11/21/21 Pt with swallowing problem motor dysfx lower gabapentin lower nortriptyline lower seroquel 11/22 continue tx. 11/23 continue tx. 11/24/2022 More alert with lowered gabapentin nortriptyline lorazepam lower Lamictal to 150 b.i.d. hope to improve patient's balance motor function and consideration swallowing dysfunction can try and taper down on Seroquel in case this is also a contributing factor 11/25/2022 Patient has been active with OT change to venlafaxine from Lexapro and lowering of nortriptyline seems show some improvement Discharge planning continues 11/26/2022 the patient reports worsening his mood being more depressed and anxious. We will discuss the case with Dr. Haskins. 11/27/2022 no changes on mental status, we will keep on the same treatment 11/29 continue current treatment plan 11/30 continue current treatment plan 12/02/2022 Effexor was increased to 112.5 mg Seroquel have been lower to 50 mg and Mirapex discontinued hope being this will improve physical functioning 12/03/2021 Continue Effexor 112 Seroquel 50 at bedtime patient's diet was able to be increased 12/04/2022 Increase Effexor to 150 mg continue physical therapy on the unit reviewed cognitive behavioral and positive supports Stop Seroquel will try olanzapine 2.5 mg at bedtime 12/05/2022 Patient seems improved with increase Effexor and change to olanzapine no further change at this time swallowing improved with chopped diet has discharge planning meeting coming up in 3 days 12/06: Continue current regimen and plans 12/07: Continue current plans and regimen No change of treatment on 12/13 and 12/14 12/15- d/c metamucil, scheduled colace/senna, continue miralax. Increase atarax for anxiety- monitor excessive sedation, in combination with anticholinergic medications. 12/16 continue current medications. 12/17 continue tx. Reason for contiued inpatient stay Substantial Risk for: inability to function Time Spent With Patient Time: Total time managing care of this patient today ____ minutes.
[2022-12-17] MEDS: Ondansetron ODT 4 MG TAB.RAPDIS TRANSLINGU (12:26)
--- NOTE | 2022-12-17 13:24 | MHC.CLN ---
F/U PATIENT SPOKE WITH THIS SCALE CLERK AT LUNCH. STATED THAT CHOPPED DIET IS MAKING HIM ANGRY. REMINDED HIM THAT RD COULD NOT UPGRADE HIS DIET. HAS WORKED WITH INSURANCE ADMINISTRATIVE ASSISTANT. CONTINUE TO PROVIDE FOOD PREFERENCES ABLE PER DIET CONSISTENCY.
[2022-12-17] MEDS: polyethylene glycoL 3350 17 GM POWD.PACK PO (15:44)
[2022-12-17] MEDS: LORazepam 0.5 MG TABLET PO (16:45)
[2022-12-17 18:00] VITALS: BP 127/73; PULSE 75; RESP 18; TEMP 36.2; O2SAT 97
[2022-12-17] MEDS: LORazepam 1 MG TABLET PO (21:03)
[2022-12-17] MEDS: OLANZapine 2.5 MG TABLET PO (21:10)
[2022-12-17] MEDS: Melatonin 3 MG TABLET 9 MG PO (21:11)
[2022-12-17] MEDS: Nortriptyline HCl 25 MG CAPSULE 50 MG PO (21:12)
[2022-12-17] MEDS: traZODone HCL 100 MG TABLET 200 MG PO (21:15)
[2022-12-17] MEDS: Latanoprost 0.005 % Ophth Sol 2.5 ML DROPS 1 DROP EYE-BOTH (21:19)
[2022-12-18 10:30] VITALS: BP 122/68; PULSE 74; RESP 18; TEMP 36.2; O2SAT 96
[2022-12-18] MEDS: lamoTRIgine 25 MG TABLET 150 MG PO (11:00)
[2022-12-18] MEDS: Tamsulosin HCL 0.4 MG CAPSULE PO (11:01)
[2022-12-18] MEDS: Multivitamin TABLET 1 TAB PO (11:01)
[2022-12-18] MEDS: Sennosides/Docusate Sodium TABLET 1 TAB PO ×2 (11:02→22:05)
[2022-12-18] MEDS: Omeprazole 20 MG CAPSULE.DR PO ×2 (11:02→15:38)
[2022-12-18] MEDS: lisinopriL 20 MG TABLET PO (11:06)
[2022-12-18] MEDS: amLODIPine Besylate 5 MG TABLET PO (11:06)
[2022-12-18] MEDS: Gabapentin 300 MG CAPSULE PO ×3 (11:07→22:08)
[2022-12-18] MEDS: calcium polycarbophiL TABLET 1 TAB PO (11:07)
[2022-12-18] MEDS: Naltrexone HCl 50 MG TABLET PO (11:07)
[2022-12-18] MEDS: Cholecalciferol (Vitamin D3) 10 MCG TABLET PO (11:07)
[2022-12-18] MEDS: Venlafaxine HCl ER 150 MG CAP.ER.24H PO (11:07)
[2022-12-18] MEDS: Finasteride 5 MG TABLET PO (11:08)
--- NOTE | 2022-12-18 12:52 | MHC.SLORD ---
Speech Language Pathology Order Status: Attempted to see patient at lunch, RN reported patient was in room, refusing to leave to have lunch. RN reports patient continues to c/o and be angry about diet limitations (RN well aware of history, patient's swallowing issues, behavioral responses). As patient has history of choking, continues to be at risk for choking due to documented pharyngeal dysphagia, and patient continues to evidence poor insight to needs, it is not recommended to upgrade diet at this time. DIP BRAZIER will continue to monitor.
--- NOTE | 2022-12-18 14:34 | HO.PSYCHPN ---
Subjective Subjective Date of Service: 12/18/22 Reason For Visit: Depression hopelessness irritability Subjective Notes: Conditional Voluntary Interim History: Pt reports feeling hopeless today. He reports not remembering feeling so hopeless, however, his affect has been much brighter, he is calmer. We discussed regressing to mindset of needing more support, despite showing signs of improved mood. Intermittent SI, no plan. Medication Compliance: Yes Review of Systems Review of Systems Yes Unobtainable due to mental condition and Unobtainable due to mental status Mental Status Exam Mental Status Exam Narrative: Appearance: casually groomed, good hygiene, in NAD Behavior: cooperative Psychomotor: no agitation or retardation noted Speech: clear, some delayed in response, soft tone, spontaneous TP: tangential TC: no psychosis, feeling too anxious Mood: anxious Affect: brighter, calmer than reported mood SI: not today, but tends to be intermittent, passive, chronic HI: none Delusions: none Insight/judgment: fair x 2. Memory/cog: alert, oriented x 3. not formally tested. Diagnostics Vital Signs (24Hr): Vital Signs - 24 hr 12/18/22 10:30 12/18/22 21:00 Temperature 97.1 F 97.0 F Pulse Rate 74 72 Respiratory Rate 18 18 Blood Pressure 122/68 121/59 L Pulse Oximetry 96 97 Oxygen Delivery Method Room Air Room Air BMI result Body Mass Index 30.2 Labs 11/13/22 07:43 11/12/22 09:32 Imaging Radiology Impressions: ITS Impressions Chest X-Ray 10/20/22 15:45 IMPRESSION: 1. Low lung volumes with bibasilar linear disc atelectasis versus scarring. 2. No airspace consolidation or effusion. Head CT 11/08/22 12:29 IMPRESSION: No acute intracranial hemorrhage or territorial infarction. Stable chronic postoperative changes with gliosis and encephalomalacia in the right frontal and right temporal lobes. Ex vacuo dilatation of the ventricles and diffuse parenchymal volume loss. Right-sided craniotomy changes. Chest X-Ray 11/12/22 10:32 IMPRESSION: Hypoexpanded lungs with bibasilar platelike atelectasis. Brain MRI 11/12/22 13:15 IMPRESSION: 1. No demonstrated acute intracranial abnormalities. 2. Chronic encephalomalacia of the right temporal, right frontal, and left occipital lobes. Small regions of chronic encephalomalacia in the parasagittal aspects of the bilateral parietal lobes. Moderate underlying microangiopathy and generalized cerebral volume loss. Chest X-Ray 11/14/22 15:52 IMPRESSION: Low lung volumes, bibasilar subsegmental atelectasis and slight elevation of the right hemidiaphragm similar to previous exam. Modified Barium Swallow 11/21/22 15:11 IMPRESSION: Laryngeal penetration on several occasions but no laryngeal aspiration. Mild retention of solid food in the valleculae which cleared with subsequent oral administration of water or thin barium. Correlate with speech therapy results. Medications Medications Current Medications Acetaminophen (Acetaminophen 325 Mg Tablet) 650 mg PO Q6H PRN PRN Reason: Headache/Pain Mild Scale (1-3) Last Admin: 12/18/22 22:14 Dose: 650 mg Al Hydroxide/Mg Hydroxide (Magnesium Hydrox/Alum Hydrox 30 Ml Oral.Susp) 30 ml PO Q6H PRN PRN Reason: Heartburn/Nausea Last Admin: 11/22/22 21:39 Dose: 30 ml Albuterol Sulfate (Albuterol Sulfate 90 Mcg 8 Gm Inhaler) 2 puff INHALE Q6H PRN PRN Reason: Wheezing Amlodipine Besylate (Amlodipine Besylate 5 Mg Tablet) 5 mg PO DAILY [facility]; Protocol Last Admin: 12/18/22 11:06 Dose: 5 mg Benzocaine (Throat Lozenge, Medicated Lozenge) 1 lozenge MUCOUS MEM Q2H PRN PRN Reason: Sore Throat Last Admin: 11/12/22 03:08 Dose: 1 lozenge Calcium Polycarbophil (Calcium Polycarbophil Tablet) 1 tab PO DAILY TAZ Last Admin: 12/18/22 11:07 Dose: 1 tab Docusate Sodium (Docusate Sodium 100 Mg Capsule) 100 mg PO DAILY PRN PRN Reason: constipation Last Admin: 12/13/22 01:31 Dose: 100 mg Finasteride (Finasteride 5 Mg Tablet) 5 mg PO DAILY [facility] Last Admin: 12/18/22 11:08 Dose: 5 mg Gabapentin (Gabapentin 300 Mg Capsule) 300 mg PO TID TAZ Last Admin: 12/18/22 22:08 Dose: 300 mg Guaifenesin/Dextromethorphan (Guaifenesin Dm 200/20/10 Ml 10 Ml Syrup) 10 ml PO Q4H PRN PRN Reason: Cough Last Admin: 11/20/22 05:31 Dose: 10 ml Hydroxyzine HCl (Hydroxyzine Hcl 50 Mg Tablet) 50 mg PO Q4H PRN PRN Reason: Anxiety Last Admin: 12/19/22 02:58 Dose: 50 mg Lamotrigine (Lamotrigine 25 Mg Tablet) 50 mg PO BID [facility] Last Admin: 12/18/22 22:05 Dose: 50 mg Lamotrigine (Lamotrigine 100 Mg Tablet) 100 mg PO BID [facility] Last Admin: 12/18/22 22:04 Dose: 100 mg Latanoprost (Latanoprost 0.005 % Ophth No 2.5 Ml Drops) 1 drop EYE-BOTH BEDTIME TAZ Last Admin: 12/18/22 22:13 Dose: 1 drop Lidocaine (Lidocaine 5 % Ointment 35 Gm) 1 appl TOPICAL QID [facility] Last Admin: 12/18/22 22:13 Dose: 1 appl Lisinopril (Lisinopril 20 Mg Tablet) 20 mg PO DAILY [facility]; Protocol Last Admin: 12/18/22 11:06 Dose: 20 mg Lorazepam (Lorazepam 0.5 Mg Tablet) 0.5 mg PO Q4H PRN PRN Reason: Anxiety Last Admin: 12/19/22 02:58 Dose: 0.5 mg Lorazepam (Lorazepam 1 Mg Tablet) 1 mg PO BEDTIME TAZ Last Admin: 12/18/22 22:06 Dose: 1 mg Magnesium Hydroxide (Milk Of Magnesia 30 Ml Oral.Susp) 30 ml PO DAILY PRN PRN Reason: Constipation Last Admin: 11/28/22 21:13 Dose: 30 ml Melatonin (Melatonin 3 Mg Tablet) 9 mg PO BEDTIME TAZ Last Admin: 12/18/22 22:07 Dose: 9 mg Multi-Ingred Cream/Lotion/Oil/Oint (Mineral Oil/Petrolatum,White 106 Gm Tube) 1 appl TOPICAL BID TAZ; Protocol Last Admin: 12/18/22 22:24 Dose: 1 appl Multivitamins/Vitamin C (Multivitamin Tablet) 1 tab PO DAILY [facility] Last Admin: 12/18/22 11:01 Dose: 1 tab Naltrexone HCl (Naltrexone Hcl 50 Mg Tablet) 50 mg PO DAILY TAZ Last Admin: 12/18/22 11:07 Dose: 50 mg Nortriptyline HCl (Nortriptyline Hcl 25 Mg Capsule) 50 mg PO BEDTIME TAZ Last Admin: 12/18/22 22:05 Dose: 50 mg Olanzapine (Olanzapine 2.5 Mg Tablet) 2.5 mg PO BEDTIME [facility] Last Admin: 12/18/22 22:09 Dose: 2.5 mg Omeprazole (Omeprazole 20 Mg Capsule.Dr) 20 mg PO BID@0630,1630 [facility] Last Admin: 12/19/22 06:47 Dose: 20 mg Ondansetron HCl (Ondansetron Odt 4 Mg Tab.Rapdis) 4 mg TRANSLINGU Q6H PRN PRN Reason: Nausea and Vomiting Last Admin: 12/17/22 12:26 Dose: 4 mg Oxybutynin Chloride (Oxybutynin Chloride Er 5 Mg Tab.Er.24) 10 mg PO DAILY [facility] Last Admin: 12/18/22 11:02 Dose: 10 mg Polyethylene Glycol (Polyethylene Glycol 3350 17 Gm Powd.Pack) 17 gm PO DAILY@1600 [facility] Last Admin: 12/18/22 15:37 Dose: 17 gm Senna/Docusate Sodium (Sennosides/Docusate Sodium Tablet) 1 tab PO BID [facility] Last Admin: 12/18/22 22:05 Dose: 1 tab Tamsulosin HCl (Tamsulosin Hcl 0.4 Mg Capsule) 0.4 mg PO DAILY [facility] Last Admin: 12/18/22 11:01 Dose: 0.4 mg Trazodone HCl (Trazodone Hcl 100 Mg Tablet) 200 mg PO BEDTIME [facility] Last Admin: 12/18/22 22:07 Dose: 200 mg Trazodone HCl (Trazodone Hcl 50 Mg Tablet) 50 mg PO BEDTIME PRN PRN Reason: Insomnia Last Admin: 12/19/22 00:10 Dose: 50 mg Venlafaxine HCl (Venlafaxine Hcl Er 150 Mg Cap.Er.24h) 150 mg PO DAILY [facility] Last Admin: 12/18/22 11:07 Dose: 150 mg Vitamin D (Cholecalciferol (Vitamin D3) 10 Mcg Tablet) 10 mcg PO DAILY [facility] Last Admin: 12/18/22 11:07 Dose: 10 mcg Allergies Allergies Allergy/AdvReac Type Severity Reaction Status Date / Time fentanyl [FENTANYL] Allergy Intermediate unknown Verified 04/08/22 07:00 Assessment & Plan Assessment & Plan (1) Major depressive disorder, recurrent severe without psychotic features: Status: Acute Code(s): F33.2 - Major depressive disorder, recurrent severe without psychotic features (2) Cognitive and neurobehavioral dysfunction following brain injury: Status: Acute Code(s): G31.89 - Other specified degenerative diseases of nervous system; F09 - Unspecified mental disorder due to known physiological condition; S06.9X9S - Unspecified intracranial injury with loss of consciousness of unspecified duration, sequela (3) Swallowing dysfunction: Status: Acute Code(s): R13.10 - Dysphagia, unspecified Assessment and Plan: See specific swallowing plan Plan The patient is a 67-year-old male, , 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 At this moment also, he has problems of housing since he will not be able to go back to his regular skilled nursing.? The patient has a long history of alcohol use disorder that he was not able to process or work on it.? Plan 1. Continue with the same treatment.? 2. We will work with the clinical social work therapist and DDS for a proper discharge planning.? 3. Continue with recommendations of Wound Care. 4. Increase Seroquel up to 150 mg po qhs. 10/30/22 restart lorazepam 1 hs prn insomnia norterip inc 100 hs level in 50 s monitor ekg 11/01 continue current tx plan 11/02/22- Bedside Swallow eval. s/p choking episode on 11/01. 2021 Increase Lexapro encourage CBT skills need supportive coaching patient increasingly hopeless helpless denies active self-harm check nortriptyline level 11/05/2022 Check nortriptyline level patient on Seroquel nortriptyline Lexapro.? Needs much reassurance and support the has difficulty interacting at times secondary to a hopelessness irritability passive SI.? Patient has having difficulty maintaining his posture in his chair unclear why this is happening for discuss safety issues with nursing will need OT and potentially Pt input? 11/06/2022 Patient depressed and anxious tried to review cognitive behavioral perspectives ways to emotionally manage current situational factors.? Patient has for an extended period of time had great deal of difficulty with any emotional a mental coping strategies.? Will and lorazepam p.r.n. 0.5 mg to help with anxiety trying get clarity from DTS regarding transition to skilled nursing setting positive reinforcement for patient's efforts at physical conditioning becomes demoralized easily denies active self-harm 11/07 continue tx. 11/08 no changes, pt had unwitnessed fall and hit head, head CT negative 11/09 no changes 11/10 no changes 11/11 no changes 11/12/22 acute med w/u neg incentive spirometer cont medication cbt skills cont pt/ot 11/12 medical workout came back negative. No changes in current treatment 11/14/2022 Patient depressed withdrawn more fatigued 11/18/21 taper lexapro start effexor lower seroquel sec to fatigue 11/19/21 Seroquel lowered inc venlafax 11/21/21 Pt with swallowing problem motor dysfx lower gabapentin lower nortriptyline lower seroquel 11/22 continue tx. 11/23 continue tx. 11/24/2022 More alert with lowered gabapentin nortriptyline lorazepam lower Lamictal to 150 b.i.d. hope to improve patient's balance motor function and consideration swallowing dysfunction can try and taper down on Seroquel in case this is also a contributing factor 11/25/2022 Patient has been active with OT change to venlafaxine from Lexapro and lowering of nortriptyline seems show some improvement Discharge planning continues 11/26/2022 the patient reports worsening his mood being more depressed and anxious. We will discuss the case with Dr. Haskins. 11/27/2022 no changes on mental status, we will keep on the same treatment 11/29 continue current treatment plan 11/30 continue current treatment plan 12/02/2022 Effexor was increased to 112.5 mg Seroquel have been lower to 50 mg and Mirapex discontinued hope being this will improve physical functioning 12/03/2021 Continue Effexor 112 Seroquel 50 at bedtime patient's diet was able to be increased 12/04/2022 Increase Effexor to 150 mg continue physical therapy on the unit reviewed cognitive behavioral and positive supports Stop Seroquel will try olanzapine 2.5 mg at bedtime 12/05/2022 Patient seems improved with increase Effexor and change to olanzapine no further change at this time swallowing improved with chopped diet has discharge planning meeting coming up in 3 days 12/06: Continue current regimen and plans 12/07: Continue current plans and regimen No change of treatment on 12/13 and 12/14 12/15- d/c metamucil, scheduled colace/senna, continue miralax. Increase atarax for anxiety- monitor excessive sedation, in combination with anticholinergic medications. 12/16 continue current medications. 12/17 continue tx. 12/18 continue tx. Reason for contiued inpatient stay Substantial Risk for: inability to function Time Spent With Patient Time: Total time managing care of this patient today ____ minutes.
[2022-12-18] MEDS: polyethylene glycoL 3350 17 GM POWD.PACK PO (15:37)
[2022-12-18] MEDS: hydrOXYzine HCL 50 MG TABLET PO (15:39)
[2022-12-18] MEDS: LORazepam 0.5 MG TABLET PO (15:39)
[2022-12-18 21:00] VITALS: BP 121/59; PULSE 72; RESP 18; TEMP 36.1; O2SAT 97
[2022-12-18] MEDS: lamoTRIgine 100 MG TABLET PO (22:04)
[2022-12-18] MEDS: Nortriptyline HCl 25 MG CAPSULE 50 MG PO (22:05)
[2022-12-18] MEDS: lamoTRIgine 25 MG TABLET 50 MG PO (22:05)
[2022-12-18] MEDS: LORazepam 1 MG TABLET PO (22:06)
[2022-12-18] MEDS: Melatonin 3 MG TABLET 9 MG PO (22:07)
[2022-12-18] MEDS: traZODone HCL 100 MG TABLET 200 MG PO (22:07)
[2022-12-18] MEDS: OLANZapine 2.5 MG TABLET PO (22:09)
[2022-12-18] MEDS: Latanoprost 0.005 % Ophth Sol 2.5 ML DROPS 1 DROP EYE-BOTH (22:13)
[2022-12-18] MEDS: Lidocaine 5 % Ointment 35 GM 1 APPL TOPICAL (22:13)
[2022-12-18] MEDS: Acetaminophen 325 MG TABLET 650 MG PO (22:14)
[2022-12-18] MEDS: Mineral Oil/Petrolatum,White 106 GM Tube 1 APPL TOPICAL (22:24)
[2022-12-19] MEDS: traZODone HCL 50 MG TABLET PO (00:10)
[2022-12-19] MEDS: hydrOXYzine HCL 50 MG TABLET PO ×2 (02:58→13:02)
[2022-12-19] MEDS: LORazepam 0.5 MG TABLET PO ×2 (02:58→13:02)
[2022-12-19 06:00] VITALS: BP 112/60; PULSE 68; RESP 16; TEMP 37; O2SAT 98
[2022-12-19] MEDS: Omeprazole 20 MG CAPSULE.DR PO ×2 (06:47→15:51)
[2022-12-19] MEDS: calcium polycarbophiL TABLET 1 TAB PO (09:03)
[2022-12-19] MEDS: lisinopriL 20 MG TABLET PO (09:03)
[2022-12-19] MEDS: lamoTRIgine 25 MG TABLET 50 MG PO ×2 (09:03→21:22)
[2022-12-19] MEDS: amLODIPine Besylate 5 MG TABLET PO (09:04)
[2022-12-19] MEDS: Gabapentin 300 MG CAPSULE PO ×3 (09:04→21:23)
[2022-12-19] MEDS: Naltrexone HCl 50 MG TABLET PO (09:04)
[2022-12-19] MEDS: Sennosides/Docusate Sodium TABLET 1 TAB PO ×2 (09:04→21:21)
[2022-12-19] MEDS: lamoTRIgine 100 MG TABLET PO ×2 (09:04→21:24)
[2022-12-19] MEDS: Multivitamin TABLET 1 TAB PO (09:04)
[2022-12-19] MEDS: Venlafaxine HCl ER 150 MG CAP.ER.24H PO (09:04)
[2022-12-19] MEDS: Tamsulosin HCL 0.4 MG CAPSULE PO (09:04)
[2022-12-19] MEDS: Cholecalciferol (Vitamin D3) 10 MCG TABLET PO (09:04)
[2022-12-19] MEDS: Finasteride 5 MG TABLET PO (09:04)
--- NOTE | 2022-12-19 12:30 | HO.PSYCHPN ---
Subjective Subjective Date of Service: 12/19/22 Reason For Visit: Depression hopelessness irritability Subjective Notes: Conditional Voluntary Interim History: Pt reports sleeping much better. He reports feeling anxious at times in the morning. He reports atarax has been helpful for anxiety, 50mg. He denies SI/HI. Pt visible on the unit. Pt reminded of boundaries as to he can't have staff buying things for him online even with his credit card. No behavioral concerns. Medication Compliance: Yes Review of Systems Review of Systems Yes Unobtainable due to mental condition and Unobtainable due to mental status Mental Status Exam Mental Status Exam Narrative: Appearance: casually groomed, good hygiene, in NAD Behavior: cooperative Psychomotor: no agitation or retardation noted Speech: clear, some delayed in response, soft tone, spontaneous TP: tangential TC: no psychosis, feeling too anxious Mood: anxious Affect: brighter, calmer than reported mood SI: not today, but tends to be intermittent, passive, chronic HI: none Delusions: none Insight/judgment: fair x 2. Memory/cog: alert, oriented x 3. not formally tested. Diagnostics Vital Signs (24Hr): Vital Signs - 24 hr 12/19/22 18:00 Temperature 96.7 F L Pulse Rate 83 Respiratory Rate 16 Blood Pressure 97/62 Pulse Oximetry 95 Oxygen Delivery Method Room Air BMI result Body Mass Index 30.2 Labs 11/13/22 07:43 11/12/22 09:32 Imaging Radiology Impressions: ITS Impressions Chest X-Ray 10/20/22 15:45 IMPRESSION: 1. Low lung volumes with bibasilar linear disc atelectasis versus scarring. 2. No airspace consolidation or effusion. Head CT 11/08/22 12:29 IMPRESSION: No acute intracranial hemorrhage or territorial infarction. Stable chronic postoperative changes with gliosis and encephalomalacia in the right frontal and right temporal lobes. Ex vacuo dilatation of the ventricles and diffuse parenchymal volume loss. Right-sided craniotomy changes. Chest X-Ray 11/12/22 10:32 IMPRESSION: Hypoexpanded lungs with bibasilar platelike atelectasis. Brain MRI 11/12/22 13:15 IMPRESSION: 1. No demonstrated acute intracranial abnormalities. 2. Chronic encephalomalacia of the right temporal, right frontal, and left occipital lobes. Small regions of chronic encephalomalacia in the parasagittal aspects of the bilateral parietal lobes. Moderate underlying microangiopathy and generalized cerebral volume loss. Chest X-Ray 11/14/22 15:52 IMPRESSION: Low lung volumes, bibasilar subsegmental atelectasis and slight elevation of the right hemidiaphragm similar to previous exam. Modified Barium Swallow 11/21/22 15:11 IMPRESSION: Laryngeal penetration on several occasions but no laryngeal aspiration. Mild retention of solid food in the valleculae which cleared with subsequent oral administration of water or thin barium. Correlate with speech therapy results. Medications Medications Current Medications Acetaminophen (Acetaminophen 325 Mg Tablet) 650 mg PO Q6H PRN PRN Reason: Headache/Pain Mild Scale (1-3) Last Admin: 12/19/22 21:41 Dose: 650 mg Al Hydroxide/Mg Hydroxide (Magnesium Hydrox/Alum Hydrox 30 Ml Oral.Susp) 30 ml PO Q6H PRN PRN Reason: Heartburn/Nausea Last Admin: 11/22/22 21:39 Dose: 30 ml Albuterol Sulfate (Albuterol Sulfate 90 Mcg 8 Gm Inhaler) 2 puff INHALE Q6H PRN PRN Reason: Wheezing Amlodipine Besylate (Amlodipine Besylate 5 Mg Tablet) 5 mg PO DAILY [facility]; Protocol Last Admin: 12/20/22 08:43 Dose: 5 mg Benzocaine (Throat Lozenge, Medicated Lozenge) 1 lozenge MUCOUS MEM Q2H PRN PRN Reason: Sore Throat Last Admin: 11/12/22 03:08 Dose: 1 lozenge Calcium Polycarbophil (Calcium Polycarbophil Tablet) 1 tab PO DAILY [facility] Last Admin: 12/20/22 08:42 Dose: 1 tab Docusate Sodium (Docusate Sodium 100 Mg Capsule) 100 mg PO DAILY PRN PRN Reason: constipation Last Admin: 12/13/22 01:31 Dose: 100 mg Finasteride (Finasteride 5 Mg Tablet) 5 mg PO DAILY [facility] Last Admin: 12/20/22 08:48 Dose: 5 mg Gabapentin (Gabapentin 300 Mg Capsule) 300 mg PO TID [facility] Last Admin: 12/20/22 08:42 Dose: 300 mg Guaifenesin/Dextromethorphan (Guaifenesin Dm 200/20/10 Ml 10 Ml Syrup) 10 ml PO Q4H PRN PRN Reason: Cough Last Admin: 11/20/22 05:31 Dose: 10 ml Hydroxyzine HCl (Hydroxyzine Hcl 50 Mg Tablet) 50 mg PO Q4H PRN PRN Reason: Anxiety Last Admin: 12/20/22 03:56 Dose: 50 mg Lamotrigine (Lamotrigine 25 Mg Tablet) 50 mg PO BID [facility] Last Admin: 12/20/22 08:43 Dose: 50 mg Lamotrigine (Lamotrigine 100 Mg Tablet) 100 mg PO BID [facility] Last Admin: 12/20/22 08:40 Dose: 100 mg Latanoprost (Latanoprost 0.005 % Ophth No 2.5 Ml Drops) 1 drop EYE-BOTH BEDTIME [facility] Last Admin: 12/19/22 21:47 Dose: 1 drop Lidocaine (Lidocaine 5 % Ointment 35 Gm) 1 appl TOPICAL QID [facility] Last Admin: 12/19/22 21:48 Dose: 1 appl Lisinopril (Lisinopril 20 Mg Tablet) 20 mg PO DAILY [facility]; Protocol Last Admin: 12/20/22 08:42 Dose: 20 mg Lorazepam (Lorazepam 0.5 Mg Tablet) 0.5 mg PO Q4H PRN PRN Reason: Anxiety Last Admin: 12/20/22 03:56 Dose: 0.5 mg Lorazepam (Lorazepam 1 Mg Tablet) 1 mg PO BEDTIME [facility] Last Admin: 12/19/22 21:24 Dose: 1 mg Magnesium Hydroxide (Milk Of Magnesia 30 Ml Oral.Susp) 30 ml PO DAILY PRN PRN Reason: Constipation Last Admin: 11/28/22 21:13 Dose: 30 ml Melatonin (Melatonin 3 Mg Tablet) 9 mg PO BEDTIME [facility] Last Admin: 12/19/22 21:27 Dose: 9 mg Multi-Ingred Cream/Lotion/Oil/Oint (Mineral Oil/Petrolatum,White 106 Gm Tube) 1 appl TOPICAL BID [facility]; Protocol Last Admin: 12/19/22 23:41 Dose: 1 appl Multivitamins/Vitamin C (Multivitamin Tablet) 1 tab PO DAILY [facility] Last Admin: 12/20/22 08:44 Dose: 1 tab Naltrexone HCl (Naltrexone Hcl 50 Mg Tablet) 50 mg PO DAILY [facility] Last Admin: 12/20/22 08:41 Dose: 50 mg Nortriptyline HCl (Nortriptyline Hcl 25 Mg Capsule) 50 mg PO BEDTIME [facility] Last Admin: 12/19/22 21:22 Dose: 50 mg Olanzapine (Olanzapine 2.5 Mg Tablet) 2.5 mg PO BEDTIME [facility] Last Admin: 12/19/22 21:25 Dose: 2.5 mg Omeprazole (Omeprazole 20 Mg Capsule.Dr) 20 mg PO BID@0630,1630 [facility] Last Admin: 12/20/22 08:40 Dose: 20 mg Ondansetron HCl (Ondansetron Odt 4 Mg Tab.Rapdis) 4 mg TRANSLINGU Q6H PRN PRN Reason: Nausea and Vomiting Last Admin: 12/17/22 12:26 Dose: 4 mg Oxybutynin Chloride (Oxybutynin Chloride Er 5 Mg Tab.Er.24) 10 mg PO DAILY [facility] Last Admin: 12/20/22 08:41 Dose: 10 mg Polyethylene Glycol (Polyethylene Glycol 3350 17 Gm Powd.Pack) 17 gm PO DAILY@1600 [facility] Last Admin: 12/19/22 15:51 Dose: 17 gm Senna/Docusate Sodium (Sennosides/Docusate Sodium Tablet) 1 tab PO BID [facility] Last Admin: 12/20/22 08:42 Dose: 1 tab Tamsulosin HCl (Tamsulosin Hcl 0.4 Mg Capsule) 0.4 mg PO DAILY [facility] Last Admin: 12/20/22 08:41 Dose: 0.4 mg Trazodone HCl (Trazodone Hcl 100 Mg Tablet) 200 mg PO BEDTIME [facility] Last Admin: 12/19/22 21:20 Dose: 200 mg Trazodone HCl (Trazodone Hcl 50 Mg Tablet) 50 mg PO BEDTIME PRN PRN Reason: Insomnia Last Admin: 12/19/22 00:10 Dose: 50 mg Venlafaxine HCl (Venlafaxine Hcl Er 150 Mg Cap.Er.24h) 150 mg PO DAILY [facility] Last Admin: 12/20/22 08:44 Dose: 150 mg Vitamin D (Cholecalciferol (Vitamin D3) 10 Mcg Tablet) 10 mcg PO DAILY [facility] Last Admin: 12/20/22 08:41 Dose: 10 mcg Allergies Allergies Allergy/AdvReac Type Severity Reaction Status Date / Time fentanyl [FENTANYL] Allergy Intermediate unknown Verified 04/08/22 07:00 Assessment & Plan Assessment & Plan (1) Major depressive disorder, recurrent severe without psychotic features: Status: Acute Code(s): F33.2 - Major depressive disorder, recurrent severe without psychotic features (2) Cognitive and neurobehavioral dysfunction following brain injury: Status: Acute Code(s): G31.89 - Other specified degenerative diseases of nervous system; F09 - Unspecified mental disorder due to known physiological condition; S06.9X9S - Unspecified intracranial injury with loss of consciousness of unspecified duration, sequela (3) Swallowing dysfunction: Status: Acute Code(s): R13.10 - Dysphagia, unspecified Assessment and Plan: See specific swallowing plan Plan The patient is a 67-year-old male, , 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 At this moment also, he has problems of housing since he will not be able to go back to his regular correction.? The patient has a long history of alcohol use disorder that he was not able to process or work on it.? Plan 1. Continue with the same treatment.? 2. We will work with the social human services assistants and DDS for a proper discharge planning.? 3. Continue with recommendations of Wound Care. 4. Increase Seroquel up to 150 mg po qhs. 10/30/22 restart lorazepam 1 hs prn insomnia norterip inc 100 hs level in 50 s monitor ekg 11/01 continue current tx plan 11/02/22- Bedside Swallow eval. s/p choking episode on 11/01. 2021 Increase Lexapro encourage CBT skills need supportive coaching patient increasingly hopeless helpless denies active self-harm check nortriptyline level 11/05/2022 Check nortriptyline level patient on Seroquel nortriptyline Lexapro.? Needs much reassurance and support the has difficulty interacting at times secondary to a hopelessness irritability passive SI.? Patient has having difficulty maintaining his posture in his chair unclear why this is happening for discuss safety issues with nursing will need OT and potentially Pt input? 11/06/2022 Patient depressed and anxious tried to review cognitive behavioral perspectives ways to emotionally manage current situational factors.? Patient has for an extended period of time had great deal of difficulty with any emotional a mental coping strategies.? Will and lorazepam p.r.n. 0.5 mg to help with anxiety trying get clarity from DTS regarding transition to correction setting positive reinforcement for patient's efforts at physical conditioning becomes demoralized easily denies active self-harm 11/07 continue tx. 11/08 no changes, pt had unwitnessed fall and hit head, head CT negative 11/09 no changes 11/10 no changes 11/11 no changes 11/12/22 acute med w/u neg incentive spirometer cont medication cbt skills cont pt/ot 11/12 medical workout came back negative. No changes in current treatment 11/14/2022 Patient depressed withdrawn more fatigued 11/18/21 taper lexapro start effexor lower seroquel sec to fatigue 11/19/21 Seroquel lowered inc venlafax 11/21/21 Pt with swallowing problem motor dysfx lower gabapentin lower nortriptyline lower seroquel 11/22 continue tx. 11/23 continue tx. 11/24/2022 More alert with lowered gabapentin nortriptyline lorazepam lower Lamictal to 150 b.i.d. hope to improve patient's balance motor function and consideration swallowing dysfunction can try and taper down on Seroquel in case this is also a contributing factor 11/25/2022 Patient has been active with OT change to venlafaxine from Lexapro and lowering of nortriptyline seems show some improvement Discharge planning continues 11/26/2022 the patient reports worsening his mood being more depressed and anxious. We will discuss the case with Dr. Haskins. 11/27/2022 no changes on mental status, we will keep on the same treatment 11/29 continue current treatment plan 11/30 continue current treatment plan 12/02/2022 Effexor was increased to 112.5 mg Seroquel have been lower to 50 mg and Mirapex discontinued hope being this will improve physical functioning 12/03/2021 Continue Effexor 112 Seroquel 50 at bedtime patient's diet was able to be increased 12/04/2022 Increase Effexor to 150 mg continue physical therapy on the unit reviewed cognitive behavioral and positive supports Stop Seroquel will try olanzapine 2.5 mg at bedtime 12/05/2022 Patient seems improved with increase Effexor and change to olanzapine no further change at this time swallowing improved with chopped diet has discharge planning meeting coming up in 3 days 12/06: Continue current regimen and plans 12/07: Continue current plans and regimen No change of treatment on 12/13 and 12/14 12/15- d/c metamucil, scheduled colace/senna, continue miralax. Increase atarax for anxiety- monitor excessive sedation, in combination with anticholinergic medications. 12/16 continue current medications. 12/17 continue tx. 12/18 continue tx. 12/19 continue tx. Reason for contiued inpatient stay Substantial Risk for: stable for discharge Time Spent With Patient Time: Total time managing care of this patient today ____ minutes.
[2022-12-19] MEDS: Acetaminophen 325 MG TABLET 650 MG PO ×2 (13:02→21:41)
[2022-12-19] MEDS: polyethylene glycoL 3350 17 GM POWD.PACK PO (15:51)
[2022-12-19 18:00] VITALS: BP 97/62; PULSE 83; RESP 16; TEMP 35.9; O2SAT 95
[2022-12-19] MEDS: traZODone HCL 100 MG TABLET 200 MG PO (21:20)
[2022-12-19] MEDS: Nortriptyline HCl 25 MG CAPSULE 50 MG PO (21:22)
[2022-12-19] MEDS: LORazepam 1 MG TABLET PO (21:24)
[2022-12-19] MEDS: OLANZapine 2.5 MG TABLET PO (21:25)
[2022-12-19] MEDS: Melatonin 3 MG TABLET 9 MG PO (21:27)
[2022-12-19] MEDS: Latanoprost 0.005 % Ophth Sol 2.5 ML DROPS 1 DROP EYE-BOTH (21:47)
[2022-12-19] MEDS: Lidocaine 5 % Ointment 35 GM 1 APPL TOPICAL (21:48)
[2022-12-19] MEDS: Mineral Oil/Petrolatum,White 106 GM Tube 1 APPL TOPICAL (23:41)
[2022-12-20] MEDS: LORazepam 0.5 MG TABLET PO (03:56)
[2022-12-20] MEDS: hydrOXYzine HCL 50 MG TABLET PO ×2 (03:56→11:46)
[2022-12-20 08:40] VITALS: BP 133/72; PULSE 74; RESP 20; TEMP 36.4; O2SAT 97
[2022-12-20] MEDS: lamoTRIgine 100 MG TABLET PO ×2 (08:40→21:46)
[2022-12-20] MEDS: Omeprazole 20 MG CAPSULE.DR PO ×2 (08:40→16:32)
[2022-12-20] MEDS: Tamsulosin HCL 0.4 MG CAPSULE PO (08:41)
[2022-12-20] MEDS: Cholecalciferol (Vitamin D3) 10 MCG TABLET PO (08:41)
[2022-12-20] MEDS: Naltrexone HCl 50 MG TABLET PO (08:41)
[2022-12-20] MEDS: lisinopriL 20 MG TABLET PO (08:42)
[2022-12-20] MEDS: Sennosides/Docusate Sodium TABLET 1 TAB PO (08:42)
[2022-12-20] MEDS: Gabapentin 300 MG CAPSULE PO ×3 (08:42→21:45)
[2022-12-20] MEDS: calcium polycarbophiL TABLET 1 TAB PO (08:42)
[2022-12-20] MEDS: lamoTRIgine 25 MG TABLET 50 MG PO ×2 (08:43→21:45)
[2022-12-20] MEDS: amLODIPine Besylate 5 MG TABLET PO (08:43)
[2022-12-20] MEDS: Multivitamin TABLET 1 TAB PO (08:44)
[2022-12-20] MEDS: Venlafaxine HCl ER 150 MG CAP.ER.24H PO (08:44)
[2022-12-20] MEDS: Finasteride 5 MG TABLET PO (08:48)
--- NOTE | 2022-12-20 11:24 | P.PNPSI_ITS ---
Subjective Subjective Date of Service: 12/20/22 Reason For Visit: Depression hopelessness irritability Interim History: c/o anxiety 10/25 and depression 06/25. discuss current PRN regimen of hydroxyzine and ativan. pt expresses interest in something that has faster onset for anxiety relief than ativan. MD informs pt he will review chart and if changes can be made they will. per staff, ordering lots of things from [employer], which has been addressed with pt. slept about 6 hours. had ativan and atarax at 0400. Mental Status Exam Mental Status Exam Narrative: Appearance: casually groomed, good hygiene, in NAD Behavior: cooperative Psychomotor: no agitation or retardation noted Speech: clear, some delayed in response, soft tone, spontaneous TP: tangential TC: no psychosis, feeling too anxious Mood: anxious Affect: brighter, calmer than reported mood SI: not today, but tends to be intermittent, passive, chronic HI: none Delusions: none Insight/judgment: fair x 2. Memory/cog: alert, oriented x 3. not formally tested. Diagnostics Vital Signs (24Hr): Vital Signs - 24 hr 12/19/22 18:00 Temperature 96.7 F L Pulse Rate 83 Respiratory Rate 16 Blood Pressure 97/62 Pulse Oximetry 95 Oxygen Delivery Method Room Air BMI result Body Mass Index 30.2 Labs 11/13/22 07:43 11/12/22 09:32 Imaging Radiology Impressions: ITS Impressions Chest X-Ray 10/20/22 15:45 IMPRESSION: 1. Low lung volumes with bibasilar linear disc atelectasis versus scarring. 2. No airspace consolidation or effusion. Head CT 11/08/22 12:29 IMPRESSION: No acute intracranial hemorrhage or territorial infarction. Stable chronic postoperative changes with gliosis and encephalomalacia in the right frontal and right temporal lobes. Ex vacuo dilatation of the ventricles and diffuse parenchymal volume loss. Right-sided craniotomy changes. Chest X-Ray 11/12/22 10:32 IMPRESSION: Hypoexpanded lungs with bibasilar platelike atelectasis. Brain MRI 11/12/22 13:15 IMPRESSION: 1. No demonstrated acute intracranial abnormalities. 2. Chronic encephalomalacia of the right temporal, right frontal, and left occipital lobes. Small regions of chronic encephalomalacia in the parasagittal aspects of the bilateral parietal lobes. Moderate underlying microangiopathy and generalized cerebral volume loss. Chest X-Ray 11/14/22 15:52 IMPRESSION: Low lung volumes, bibasilar subsegmental atelectasis and slight elevation of the right hemidiaphragm similar to previous exam. Modified Barium Swallow 11/21/22 15:11 IMPRESSION: Laryngeal penetration on several occasions but no laryngeal aspiration. Mild retention of solid food in the valleculae which cleared with subsequent oral administration of water or thin barium. Correlate with speech therapy results. Medications Medications Current Medications Acetaminophen (Acetaminophen 325 Mg Tablet) 650 mg PO Q6H PRN PRN Reason: Headache/Pain Mild Scale (1-3) Last Admin: 12/19/22 21:41 Dose: 650 mg Al Hydroxide/Mg Hydroxide (Magnesium Hydrox/Alum Hydrox 30 Ml Oral.Susp) 30 ml PO Q6H PRN PRN Reason: Heartburn/Nausea Last Admin: 11/22/22 21:39 Dose: 30 ml Albuterol Sulfate (Albuterol Sulfate 90 Mcg 8 Gm Inhaler) 2 puff INHALE Q6H PRN PRN Reason: Wheezing Alprazolam (Alprazolam 0.25 Mg Tablet) 0.25 mg PO Q4H PRN PRN Reason: severe anxiety Amlodipine Besylate (Amlodipine Besylate 5 Mg Tablet) 5 mg PO DAILY [facility]; Protocol Last Admin: 12/20/22 08:43 Dose: 5 mg Benzocaine (Throat Lozenge, Medicated Lozenge) 1 lozenge MUCOUS MEM Q2H PRN PRN Reason: Sore Throat Last Admin: 11/12/22 03:08 Dose: 1 lozenge Calcium Polycarbophil (Calcium Polycarbophil Tablet) 1 tab PO DAILY [facility] Last Admin: 12/20/22 08:42 Dose: 1 tab Docusate Sodium (Docusate Sodium 100 Mg Capsule) 100 mg PO DAILY PRN PRN Reason: constipation Last Admin: 12/13/22 01:31 Dose: 100 mg Finasteride (Finasteride 5 Mg Tablet) 5 mg PO DAILY [facility] Last Admin: 12/20/22 08:48 Dose: 5 mg Gabapentin (Gabapentin 300 Mg Capsule) 300 mg PO TID [facility] Last Admin: 12/20/22 08:42 Dose: 300 mg Guaifenesin/Dextromethorphan (Guaifenesin Dm 200/20/10 Ml 10 Ml Syrup) 10 ml PO Q4H PRN PRN Reason: Cough Last Admin: 11/20/22 05:31 Dose: 10 ml Hydroxyzine HCl (Hydroxyzine Hcl 50 Mg Tablet) 50 mg PO Q4H PRN PRN Reason: Anxiety Last Admin: 12/20/22 03:56 Dose: 50 mg Lamotrigine (Lamotrigine 25 Mg Tablet) 50 mg PO BID [facility] Last Admin: 12/20/22 08:43 Dose: 50 mg Lamotrigine (Lamotrigine 100 Mg Tablet) 100 mg PO BID [facility] Last Admin: 12/20/22 08:40 Dose: 100 mg Latanoprost (Latanoprost 0.005 % Ophth No 2.5 Ml Drops) 1 drop EYE-BOTH BEDTIME [facility] Last Admin: 12/19/22 21:47 Dose: 1 drop Lidocaine (Lidocaine 5 % Ointment 35 Gm) 1 appl TOPICAL QID [facility] Last Admin: 12/19/22 21:48 Dose: 1 appl Lisinopril (Lisinopril 20 Mg Tablet) 20 mg PO DAILY [facility]; Protocol Last Admin: 12/20/22 08:42 Dose: 20 mg Magnesium Hydroxide (Milk Of Magnesia 30 Ml Oral.Susp) 30 ml PO DAILY PRN PRN Reason: Constipation Last Admin: 11/28/22 21:13 Dose: 30 ml Melatonin (Melatonin 3 Mg Tablet) 9 mg PO BEDTIME [facility] Last Admin: 12/19/22 21:27 Dose: 9 mg Multi-Ingred Cream/Lotion/Oil/Oint (Mineral Oil/Petrolatum,White 106 Gm Tube) 1 appl TOPICAL BID [facility]; Protocol Last Admin: 12/19/22 23:41 Dose: 1 appl Multivitamins/Vitamin C (Multivitamin Tablet) 1 tab PO DAILY [facility] Last Admin: 12/20/22 08:44 Dose: 1 tab Naltrexone HCl (Naltrexone Hcl 50 Mg Tablet) 50 mg PO DAILY [facility] Last Admin: 12/20/22 08:41 Dose: 50 mg Nortriptyline HCl (Nortriptyline Hcl 25 Mg Capsule) 50 mg PO BEDTIME [facility] Last Admin: 12/19/22 21:22 Dose: 50 mg Olanzapine (Olanzapine 2.5 Mg Tablet) 2.5 mg PO BEDTIME [facility] Last Admin: 12/19/22 21:25 Dose: 2.5 mg Omeprazole (Omeprazole 20 Mg Capsule.Dr) 20 mg PO BID@0630,1630 [facility] Last Admin: 12/20/22 08:40 Dose: 20 mg Ondansetron HCl (Ondansetron Odt 4 Mg Tab.Rapdis) 4 mg TRANSLINGU Q6H PRN PRN Reason: Nausea and Vomiting Last Admin: 12/17/22 12:26 Dose: 4 mg Oxybutynin Chloride (Oxybutynin Chloride Er 5 Mg Tab.Er.24) 10 mg PO DAILY [facility] Last Admin: 12/20/22 08:41 Dose: 10 mg Polyethylene Glycol (Polyethylene Glycol 3350 17 Gm Powd.Pack) 17 gm PO DAILY@1600 [facility] Last Admin: 12/19/22 15:51 Dose: 17 gm Senna/Docusate Sodium (Sennosides/Docusate Sodium Tablet) 1 tab PO BID [facility] Last Admin: 12/20/22 08:42 Dose: 1 tab Tamsulosin HCl (Tamsulosin Hcl 0.4 Mg Capsule) 0.4 mg PO DAILY [facility] Last Admin: 12/20/22 08:41 Dose: 0.4 mg Trazodone HCl (Trazodone Hcl 100 Mg Tablet) 200 mg PO BEDTIME [facility] Last Admin: 12/19/22 21:20 Dose: 200 mg Trazodone HCl (Trazodone Hcl 50 Mg Tablet) 50 mg PO BEDTIME PRN PRN Reason: Insomnia Last Admin: 12/19/22 00:10 Dose: 50 mg Venlafaxine HCl (Venlafaxine Hcl Er 150 Mg Cap.Er.24h) 150 mg PO DAILY [facility] Last Admin: 12/20/22 08:44 Dose: 150 mg Vitamin D (Cholecalciferol (Vitamin D3) 10 Mcg Tablet) 10 mcg PO DAILY [facility] Last Admin: 12/20/22 08:41 Dose: 10 mcg Allergies Allergies Allergy/AdvReac Type Severity Reaction Status Date / Time fentanyl [FENTANYL] Allergy Intermediate unknown Verified 04/08/22 07:00 Assessment & Plan Assessment & Plan (1) Major depressive disorder, recurrent severe without psychotic features: Status: Acute Code(s): F33.2 - Major depressive disorder, recurrent severe without psychotic features (2) Cognitive and neurobehavioral dysfunction following brain injury: Status: Acute Code(s): G31.89 - Other specified degenerative diseases of nervous system; F09 - Unspeci fied mental disorder due to known physiological condition; S06.9X9S - Unspecified intracranial injury with loss of consciousness of unspecified duration, sequela (3) Swallowing dysfunction: Status: Acute Code(s): R13.10 - Dysphagia, unspecified Assessment and Plan: See specific swallowing plan Plan The patient is a 67-year-old male, , 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 At this moment also, he has problems of housing since he will not be able to go back to his regular correction.? The patient has a long history of alcohol use disorder that he was not able to process or work on it.? Plan 1. Continue with the same treatment.? 2. We will work with the psychotherapist social worker and DDS for a proper discharge planning.? 3. Continue with recommendations of Wound Care. 4. Increase Seroquel up to 150 mg po qhs. 10/30/22 restart lorazepam 1 hs prn insomnia norterip inc 100 hs level in 50 s monitor ekg 11/01 continue current tx plan 11/02/22- Bedside Swallow eval. s/p choking episode on 11/01. 2021 Increase Lexapro encourage CBT skills need supportive coaching patient incre asingly hopeless helpless denies active self-harm check nortriptyline level 11/05/2022 Check nortriptyline level patient on Seroquel nortriptyline Lexapro.? Needs much reassurance and support the has difficulty interacting at times secondary to a hopelessness irritability passive SI.? Patient has having difficulty maintaining his posture in his chair unclear why this is happening for discuss safety issues with nursing will need OT and potentially Pt input? 11/06/2022 Patient depressed and anxious tried to review cognitive behavioral perspectives ways to emotionally manage current situational factors.? Patient has for an extended period of time had great deal of difficulty with any emotional a mental coping strategies.? Will and lorazepam p.r.n. 0.5 mg to help with anxiety trying get clarity from DTS regarding transition to correction setting positive reinforcement for patient's efforts at physical conditioning becomes demoralized easily denies active self-harm 11/07 continue tx. 11/08 no changes, pt had unwitnessed fall and hit head, head CT negative 11/09 no changes 11/10 no changes 11/11 no changes 11/12/22 acute med w/u neg incentive spirometer cont medication cbt skills cont pt/ot 11/12 medical workout came back negative. No changes in current treatment 11/14/2022 Patient depressed withdrawn more fatigued 11/18/21 taper lexapro start effexor lower seroquel sec to fatigue 11/19/21 Seroquel lowered inc venlafax 11/21/21 Pt with swallowing problem motor dysfx lower gabapentin lower nortriptyline lower seroquel 11/22 continue tx. 11/23 continue tx. 11/24/2022 More alert with lowered gabapentin nortriptyline lorazepam lower Lamictal to 150 b.i.d. hope to improve patient's balance motor function and consideration swallowing dysfunction can try and taper down on Seroquel in case this is also a contributing factor 11/25/2022 Patient has been active with OT change to venlafaxine from Lexapro and lowering of nortriptyline seems show some improvement Discharge planning continues 11/26/2022 the patient reports worsening his mood being more depressed and anxious. We will discuss the case with Dr. Haskins. 11/27/2022 no changes on mental status, we will keep on the same treatment 11/29 continue current treatment plan 11/30 continue current treatment plan 12/02/2022 Effexor was increased to 112.5 mg Seroquel have been lower to 50 mg and Mirapex discontinued hope being this will improve physical functioning 12/03/2021 Continue Effexor 112 Seroquel 50 at bedtime patient's diet was able to be increased 12/04/2022 Increase Effexor to 150 mg continue physical therapy on the unit reviewed cognitive behavioral and positive supports Stop Seroquel will try olanzapine 2.5 mg at bedtime 12/05/2022 Patient seems improved with increase Effexor and change to olanzapine no further change at this time swallowing improved with chopped diet has discharge planning meeting coming up in 3 days 12/06: Continue current regimen and plans 12/07: Continue current plans and regimen No change of treatment on 12/13 and 12/14 12/15- d/c metamucil, scheduled colace/senna, continue miralax. Increase atarax for anxiety- monitor excessive sedation, in combination with anticholinergic medications. 12/16 continue current medications. 12/17 continue tx. 12/18 continue tx. 12/19 continue tx. 12/20: D/C ativan and replace with xanax at equivalent dosing, as xanax is the only benzodiazepine associated with improvement in depression (as well as having a faster onset than ativan, and being helpful for anxiety). otherwise continue prior mgmt. AUD noted, but it sounds as if pt will be living in supervised settings moving forward and will not have the access to his medications which would be required for abuse. Reason for contiued inpatient stay Substantial Risk for: harm to self, inability to function and rapid decompensation Time Spent With Patient Time: Total time managing care of this patient today _25___ minutes.
[2022-12-20] MEDS: Mineral Oil/Petrolatum,White 106 GM Tube 1 APPL TOPICAL (11:42)
[2022-12-20] MEDS: ALPRAZolam 0.25 MG TABLET PO (13:49)
[2022-12-20] MEDS: polyethylene glycoL 3350 17 GM POWD.PACK PO (16:32)
[2022-12-20] MEDS: Acetaminophen 325 MG TABLET 650 MG PO (16:45)
[2022-12-20 18:00] VITALS: BP 129/59; PULSE 68; RESP 16; TEMP 36.4; O2SAT 99
[2022-12-20] MEDS: ALPRAZolam 0.5 MG TABLET PO (21:45)
[2022-12-20] MEDS: Melatonin 3 MG TABLET 9 MG PO (21:46)
[2022-12-20] MEDS: OLANZapine 2.5 MG TABLET PO (21:47)
[2022-12-20] MEDS: Nortriptyline HCl 25 MG CAPSULE 50 MG PO (21:47)
[2022-12-20] MEDS: traZODone HCL 100 MG TABLET 200 MG PO (21:47)
[2022-12-20] MEDS: Latanoprost 0.005 % Ophth Sol 2.5 ML DROPS 1 DROP EYE-BOTH (21:56)
[2022-12-21 08:45] VITALS: BP 128/76; PULSE 85; RESP 18; TEMP 36.3; O2SAT 98
[2022-12-21] MEDS: Omeprazole 20 MG CAPSULE.DR PO ×2 (08:54→16:19)
[2022-12-21] MEDS: calcium polycarbophiL TABLET 1 TAB PO (08:55)
[2022-12-21] MEDS: lamoTRIgine 25 MG TABLET 50 MG PO ×2 (08:55→22:24)
[2022-12-21] MEDS: lisinopriL 20 MG TABLET PO (08:56)
[2022-12-21] MEDS: Gabapentin 300 MG CAPSULE PO ×3 (08:56→22:24)
[2022-12-21] MEDS: Venlafaxine HCl ER 150 MG CAP.ER.24H PO (09:00)
[2022-12-21] MEDS: lamoTRIgine 100 MG TABLET PO ×2 (09:00→22:24)
[2022-12-21] MEDS: Cholecalciferol (Vitamin D3) 10 MCG TABLET PO (09:01)
[2022-12-21] MEDS: Finasteride 5 MG TABLET PO (09:01)
[2022-12-21] MEDS: amLODIPine Besylate 5 MG TABLET PO (09:01)
[2022-12-21] MEDS: Tamsulosin HCL 0.4 MG CAPSULE PO (09:01)
[2022-12-21] MEDS: Multivitamin TABLET 1 TAB PO (09:02)
[2022-12-21] MEDS: Naltrexone HCl 50 MG TABLET PO (09:02)
[2022-12-21] MEDS: Sennosides/Docusate Sodium TABLET 1 TAB PO (09:03)
[2022-12-21] MEDS: Mineral Oil/Petrolatum,White 106 GM Tube 1 APPL TOPICAL (09:13)
--- NOTE | 2022-12-21 10:55 | HO.PSYCHPN ---
Subjective Subjective Date of Service: 12/21/22 Reason For Visit: Depression hopelessness irritability Interim History: calm, cooperative. states the xanax dosing is inadequate to address his anxiety, asking for a dose increase. MD educates pt on dose equivalents btwn xanax and ativan and defers the request to Dr. Haskins, who will be returning tomorrow. pt is content with this plan. per staff, no changes, med-compliant. request to make dermacin cream PRN. Mental Status Exam Mental Status Exam Narrative: Appearance: casually groomed, good hygiene, in NAD Behavior: cooperative Psychomotor: no agitation or retardation noted Speech: clear, some delayed in response, soft tone, spontaneous TP: tangential TC: no psychosis, feeling too anxious Mood: anxious Affect: brighter, calmer than reported mood SI: not today, but tends to be intermittent, passive, chronic HI: none Delusions: none Insight/judgment: fair x 2. Memory/cog: alert, oriented x 3. not formally tested. Diagnostics Vital Signs (24Hr): Vital Signs - 24 hr 12/20/22 18:00 12/21/22 08:45 Temperature 97.6 F 97.4 F Pulse Rate 68 85 Respiratory Rate 16 18 Blood Pressure 129/59 L 128/76 Pulse Oximetry 99 98 Oxygen Delivery Method Room Air Room Air BMI result Body Mass Index 30.2 Labs 11/13/22 07:43 11/12/22 09:32 Imaging Radiology Impressions: ITS Impressions Chest X-Ray 10/20/22 15:45 IMPRESSION: 1. Low lung volumes with bibasilar linear disc atelectasis versus scarring. 2. No airspace consolidation or effusion. Head CT 11/08/22 12:29 IMPRESSION: No acute intracranial hemorrhage or territorial infarction. Stable chronic postoperative changes with gliosis and encephalomalacia in the right frontal and right temporal lobes. Ex vacuo dilatation of the ventricles and diffuse parenchymal volume loss. Right-sided craniotomy changes. Chest X-Ray 11/12/22 10:32 IMPRESSION: Hypoexpanded lungs with bibasilar platelike atelectasis. Brain MRI 11/12/22 13:15 IMPRESSION: 1. No demonstrated acute intracranial abnormalities. 2. Chronic encephalomalacia of the right temporal, right frontal, and left occipital lobes. Small regions of chronic encephalomalacia in the parasagittal aspects of the bilateral parietal lobes. Moderate underlying microangiopathy and generalized cerebral volume loss. Chest X-Ray 11/14/22 15:52 IMPRESSION: Low lung volumes, bibasilar subsegmental atelectasis and slight elevation of the right hemidiaphragm similar to previous exam. Modified Barium Swallow 11/21/22 15:11 IMPRESSION: Laryngeal penetration on several occasions but no laryngeal aspiration. Mild retention of solid food in the valleculae which cleared with subsequent oral administration of water or thin barium. Correlate with speech therapy results. Medications Medications Current Medications Acetaminophen (Acetaminophen 325 Mg Tablet) 650 mg PO Q6H PRN PRN Reason: Headache/Pain Mild Scale (1-3) Last Admin: 12/20/22 16:45 Dose: 650 mg Al Hydroxide/Mg Hydroxide (Magnesium Hydrox/Alum Hydrox 30 Ml Oral.Susp) 30 ml PO Q6H PRN PRN Reason: Heartburn/Nausea Last Admin: 11/22/22 21:39 Dose: 30 ml Albuterol Sulfate (Albuterol Sulfate 90 Mcg 8 Gm Inhaler) 2 puff INHALE Q6H PRN PRN Reason: Wheezing Alprazolam (Alprazolam 0.25 Mg Tablet) 0.25 mg PO Q4H PRN PRN Reason: severe anxiety Last Admin: 12/20/22 13:49 Dose: 0.25 mg Alprazolam (Alprazolam 0.5 Mg Tablet) 0.5 mg PO BEDTIME TAZ Last Admin: 12/20/22 21:45 Dose: 0.5 mg Amlodipine Besylate (Amlodipine Besylate 5 Mg Tablet) 5 mg PO DAILY [facility]; Protocol Last Admin: 12/21/22 09:01 Dose: 5 mg Benzocaine (Throat Lozenge, Medicated Lozenge) 1 lozenge MUCOUS MEM Q2H PRN PRN Reason: Sore Throat Last Admin: 11/12/22 03:08 Dose: 1 lozenge Calcium Polycarbophil (Calcium Polycarbophil Tablet) 1 tab PO DAILY [facility] Last Admin: 12/21/22 08:55 Dose: 1 tab Docusate Sodium (Docusate Sodium 100 Mg Capsule) 100 mg PO DAILY PRN PRN Reason: constipation Last Admin: 12/13/22 01:31 Dose: 100 mg Finasteride (Finasteride 5 Mg Tablet) 5 mg PO DAILY [facility] Last Admin: 12/21/22 09:01 Dose: 5 mg Gabapentin (Gabapentin 300 Mg Capsule) 300 mg PO TID [facility] Last Admin: 12/21/22 08:56 Dose: 300 mg Guaifenesin/Dextromethorphan (Guaifenesin Dm 200/20/10 Ml 10 Ml Syrup) 10 ml PO Q4H PRN PRN Reason: Cough Last Admin: 11/20/22 05:31 Dose: 10 ml Hydroxyzine HCl (Hydroxyzine Hcl 50 Mg Tablet) 50 mg PO Q4H PRN PRN Reason: Anxiety Last Admin: 12/20/22 11:46 Dose: 50 mg Lamotrigine (Lamotrigine 25 Mg Tablet) 50 mg PO BID [facility] Last Admin: 12/21/22 08:55 Dose: 50 mg Lamotrigine (Lamotrigine 100 Mg Tablet) 100 mg PO BID [facility] Last Admin: 12/21/22 09:00 Dose: 100 mg Latanoprost (Latanoprost 0.005 % Ophth No 2.5 Ml Drops) 1 drop EYE-BOTH BEDTIME [facility] Last Admin: 12/20/22 21:56 Dose: 1 drop Lidocaine (Lidocaine 5 % Ointment 35 Gm) 1 appl TOPICAL QID [facility] Last Admin: 12/21/22 09:14 Dose: Not Given Lisinopril (Lisinopril 20 Mg Tablet) 20 mg PO DAILY [facility]; Protocol Last Admin: 12/21/22 08:56 Dose: 20 mg Magnesium Hydroxide (Milk Of Magnesia 30 Ml Oral.Susp) 30 ml PO DAILY PRN PRN Reason: Constipation Last Admin: 11/28/22 21:13 Dose: 30 ml Melatonin (Melatonin 3 Mg Tablet) 9 mg PO BEDTIME [facility] Last Admin: 12/20/22 21:46 Dose: 9 mg Multi-Ingred Cream/Lotion/Oil/Oint (Mineral Oil/Petrolatum,White 106 Gm Tube) 1 appl TOPICAL BID PRN; Protocol PRN Reason: dry skin Multivitamins/Vitamin C (Multivitamin Tablet) 1 tab PO DAILY [facility] Last Admin: 12/21/22 09:02 Dose: 1 tab Naltrexone HCl (Naltrexone Hcl 50 Mg Tablet) 50 mg PO DAILY [facility] Last Admin: 12/21/22 09:02 Dose: 50 mg Nortriptyline HCl (Nortriptyline Hcl 25 Mg Capsule) 50 mg PO BEDTIME [facility] Last Admin: 12/20/22 21:47 Dose: 50 mg Olanzapine (Olanzapine 2.5 Mg Tablet) 2.5 mg PO BEDTIME [facility] Last Admin: 12/20/22 21:47 Dose: 2.5 mg Omeprazole (Omeprazole 20 Mg Capsule.Dr) 20 mg PO BID@0630,1630 [facility] Last Admin: 12/21/22 08:54 Dose: 20 mg Ondansetron HCl (Ondansetron Odt 4 Mg Tab.Rapdis) 4 mg TRANSLINGU Q6H PRN PRN Reason: Nausea and Vomiting Last Admin: 12/17/22 12:26 Dose: 4 mg Oxybutynin Chloride (Oxybutynin Chloride Er 5 Mg Tab.Er.24) 10 mg PO DAILY [facility] Last Admin: 12/21/22 08:59 Dose: 10 mg Polyethylene Glycol (Polyethylene Glycol 3350 17 Gm Powd.Pack) 17 gm PO DAILY@1600 [facility] Last Admin: 12/20/22 16:32 Dose: 17 gm Senna/Docusate Sodium (Sennosides/Docusate Sodium Tablet) 1 tab PO BID [facility] Last Admin: 12/21/22 09:03 Dose: 1 tab Tamsulosin HCl (Tamsulosin Hcl 0.4 Mg Capsule) 0.4 mg PO DAILY [facility] Last Admin: 12/21/22 09:01 Dose: 0.4 mg Trazodone HCl (Trazodone Hcl 100 Mg Tablet) 200 mg PO BEDTIME [facility] Last Admin: 12/20/22 21:47 Dose: 200 mg Trazodone HCl (Trazodone Hcl 50 Mg Tablet) 50 mg PO BEDTIME PRN PRN Reason: Insomnia Last Admin: 12/19/22 00:10 Dose: 50 mg Venlafaxine HCl (Venlafaxine Hcl Er 150 Mg Cap.Er.24h) 150 mg PO DAILY [facility] Last Admin: 12/21/22 09:00 Dose: 150 mg Vitamin D (Cholecalciferol (Vitamin D3) 10 Mcg Tablet) 10 mcg PO DAILY [facility] Last Admin: 12/21/22 09:01 Dose: 10 mcg Allergies Allergies Allergy/AdvReac Type Severity Reaction Status Date / Time fentanyl [FENTANYL] Allergy Intermediate unknown Verified 04/08/22 07:00 Assessment & Plan Assessment & Plan (1) Major depressive disorder, recurrent severe without psychotic features: Status: Acute Code(s): F33.2 - Major depressive disorder, recurrent severe without psychotic features (2) Cognitive and neurobehavioral dysfunction following brain injury: Status: Acute Code(s): G31.89 - Other specified degenerative diseases of nervous system; F09 - Unspecified mental disorder due to known physiological condition; S06.9X9S - Unspecified intracranial injury with loss of consciousness of unspecified duration, sequela (3) Swallowing dysfunction: Status: Acute Code(s): R13.10 - Dysphagia, unspecified Assessment and Plan: See specific swallowing plan Plan The patient is a 67-year-old male, , 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 At this moment also, he has problems of housing since he will not be able to go back to his regular residential.? The patient has a long history of alcohol use disorder that he was not able to process or work on it.? Plan 1. Continue with the same treatment.? 2. We will work with the social sciences instructor and DDS for a proper discharge planning.? 3. Continue with recommendations of Wound Care. 4. Increase Seroquel up to 150 mg po qhs. 10/30/22 restart lorazepam 1 hs prn insomnia norterip inc 100 hs level in 50 s monitor ekg 11/01 continue current tx plan 11/02/22- Bedside Swallow eval. s/p choking episode on 11/01. 2021 Increase Lexapro encourage CBT skills need supportive coaching patient increasingly hopeless helpless denies active self-harm check nortriptyline level 11/05/2022 Check nortriptyline level patient on Seroquel nortriptyline Lexapro.? Needs much reassurance and support the has difficulty interacting at times secondary to a hopelessness irritability passive SI.? Patient has having difficulty maintaining his posture in his chair unclear why this is happening for discuss safety issues with nursing will need OT and potentially Pt input? 11/06/2022 Patient depressed and anxious tried to review cognitive behavioral perspectives ways to emotionally manage current situational factors.? Patient has for an extended period of time had great deal of difficulty with any emotional a mental coping strategies.? Will and lorazepam p.r.n. 0.5 mg to help with anxiety trying get clarity from DTS regarding transition to residential setting positive reinforcement for patient's efforts at physical conditioning becomes demoralized easily denies active self-harm 11/07 continue tx. 11/08 no changes, pt had unwitnessed fall and hit head, head CT negative 11/09 no changes 11/10 no changes 11/11 no changes 11/12/22 acute med w/u neg incentive spirometer cont medication cbt skills cont pt/ot 11/12 medical workout came back negative. No changes in current treatment 11/14/2022 Patient depressed withdrawn more fatigued 11/18/21 taper lexapro start effexor lower seroquel sec to fatigue 11/19/21 Seroquel lowered inc venlafax 11/21/21 Pt with swallowing problem motor dysfx lower gabapentin lower nortriptyline lower seroquel 11/22 continue tx. 11/23 continue tx. 11/24/2022 More alert with lowered gabapentin nortriptyline lorazepam lower Lamictal to 150 b.i.d. hope to improve patient's balance motor function and consideration swallowing dysfunction can try and taper down on Seroquel in case this is also a contributing factor 11/25/2022 Patient has been active with OT change to venlafaxine from Lexapro and lowering of nortriptyline seems show some improvement Discharge planning continues 11/26/2022 the patient reports worsening his mood being more depressed and anxious. We will discuss the case with Dr. Haskins. 11/27/2022 no changes on mental status, we will keep on the same treatment 11/29 continue current treatment plan 11/30 continue current treatment plan 12/02/2022 Effexor was increased to 112.5 mg Seroquel have been lower to 50 mg and Mirapex discontinued hope being this will improve physical functioning 12/03/2021 Continue Effexor 112 Seroquel 50 at bedtime patient's diet was able to be increased 12/04/2022 Increase Effexor to 150 mg continue physical therapy on the unit reviewed cognitive behavioral and positive supports Stop Seroquel will try olanzapine 2.5 mg at bedtime 12/05/2022 Patient seems improved with increase Effexor and change to olanzapine no further change at this time swallowing improved with chopped diet has discharge planning meeting coming up in 3 days 12/06: Continue current regimen and plans 12/07: Continue current plans and regimen No change of treatment on 12/13 and 12/14 12/15- d/c metamucil, scheduled colace/senna, continue miralax. Increase atarax for anxiety- monitor excessive sedation, in combination with anticholinergic medications. 12/16 continue current medications. 12/17 continue tx. 12/18 continue tx. 12/19 continue tx. 12/20: D/C ativan and replace with xanax at equivalent dosing, as xanax is the only benzodiazepine associated with improvement in depression (as well as having a faster onset than ativan, and being helpful for anxiety). otherwise continue prior mgmt. AUD noted, but it sounds as if pt will be living in supervised settings moving forward and will not have the access to his medications which would be required for abuse. 12/21: anxiety remains inadequately treated, asking for xanax dosing increase, deferred to attending MD who returns tomorrow. dermacin cream changed from scheduled to PRN per RN request as pt does not need it all the time. otherwise previous mgmt unchanged. Patient educated on: medication risk/benefits and substance abuse Reason for contiued inpatient stay Substantial Risk for: harm to self, inability to function and rapid decompensation Time Spent With Patient Time: Total time managing care of this patient today ____ minutes.
[2022-12-21] MEDS: Lidocaine 5 % Ointment 35 GM 1 APPL TOPICAL (12:23)
[2022-12-21] MEDS: hydrOXYzine HCL 50 MG TABLET PO (16:33)
[2022-12-21 18:00] VITALS: BP 115/61; PULSE 80; RESP 18; TEMP 36.2; O2SAT 97
[2022-12-21] MEDS: Melatonin 3 MG TABLET 9 MG PO (22:23)
[2022-12-21] MEDS: OLANZapine 2.5 MG TABLET PO (22:25)
[2022-12-21] MEDS: ALPRAZolam 0.5 MG TABLET PO (22:25)
[2022-12-21] MEDS: Nortriptyline HCl 25 MG CAPSULE 50 MG PO (22:25)
[2022-12-21] MEDS: traZODone HCL 100 MG TABLET 200 MG PO (22:25)
[2022-12-21] MEDS: Latanoprost 0.005 % Ophth Sol 2.5 ML DROPS 1 DROP EYE-BOTH (22:29)
[2022-12-21] MEDS: Acetaminophen 325 MG TABLET 650 MG PO (22:33)
[2022-12-22] MEDS: Omeprazole 20 MG CAPSULE.DR PO ×2 (04:41→16:16)
[2022-12-22] MEDS: hydrOXYzine HCL 50 MG TABLET PO ×3 (04:41→16:54)
[2022-12-22] MEDS: Finasteride 5 MG TABLET PO (09:02)
[2022-12-22] MEDS: Tamsulosin HCL 0.4 MG CAPSULE PO (09:02)
[2022-12-22] MEDS: lisinopriL 20 MG TABLET PO (09:02)
[2022-12-22] MEDS: Venlafaxine HCl ER 150 MG CAP.ER.24H PO (09:02)
[2022-12-22] MEDS: amLODIPine Besylate 5 MG TABLET PO (09:02)
[2022-12-22] MEDS: lamoTRIgine 100 MG TABLET PO ×2 (09:03→22:18)
[2022-12-22] MEDS: Cholecalciferol (Vitamin D3) 10 MCG TABLET PO (09:03)
[2022-12-22] MEDS: Gabapentin 300 MG CAPSULE PO ×3 (09:03→22:20)
[2022-12-22] MEDS: calcium polycarbophiL TABLET 1 TAB PO (09:04)
[2022-12-22] MEDS: Naltrexone HCl 50 MG TABLET PO (09:04)
[2022-12-22] MEDS: Multivitamin TABLET 1 TAB PO (09:04)
[2022-12-22] MEDS: lamoTRIgine 25 MG TABLET 50 MG PO ×2 (09:04→22:18)
[2022-12-22 09:19] VITALS: BP 151/78; PULSE 85; RESP 20; TEMP 36.1; O2SAT 97
--- NOTE | 2022-12-22 11:04 | MHC.SLORD ---
Speech Language Pathology Order Status: FORESTRY AID checked in w/ nursing this morning. Per pt's RN, pt did well with his breakfast this morning, w/ no complaints. Pt is on a chopped (NDD3) diet with thin liquids. FORESTRY AID will continue to follow.
[2022-12-22] MEDS: ALPRAZolam 0.25 MG TABLET PO (12:54)
--- NOTE | 2022-12-22 15:32 | P.PNPSI_ITS ---
Subjective Subjective Date of Service: 12/22/22 Reason For Visit: Depression hopelessness irritability Subjective Notes: Conditional Voluntary Interim History: Pt reports some loose stool over the weekend. Pt was switched from ativan to xanax over the weekend. Pt reminded that he did very well on combination of ativan and atarax. He reports sleeping through the night. No behavioral concerns. NO SI/HI. Medication Compliance: Yes Review of Systems Review of Systems Yes Unobtainable due to mental condition and Unobtainable due to mental status Mental Status Exam Mental Status Exam Narrative: Appearance: casually groomed, good hygiene, in NAD Behavior: cooperative Psychomotor: no agitation or retardation noted Speech: clear, some delayed in response, soft tone, spontaneous TP: tangential TC: no psychosis, feeling too anxious Mood: anxious Affect: brighter, calmer than reported mood SI: not today, but tends to be intermittent, passive, chronic HI: none Delusions: none Insight/judgment: fair x 2. Memory/cog: alert, oriented x 3. not formally tested. Diagnostics Vital Signs (24Hr): Vital Signs - 24 hr 12/22/22 09:19 Temperature 96.9 F Pulse Rate 85 Respiratory Rate 20 Blood Pressure 151/78 H Pulse Oximetry 97 Oxygen Delivery Method Room Air BMI result Body Mass Index 30.2 Labs 11/13/22 07:43 11/12/22 09:32 Imaging Radiology Impressions: ITS Impressions Chest X-Ray 10/20/22 15:45 IMPRESSION: 1. Low lung volumes with bibasilar linear disc atelectasis versus scarring. 2. No airspace consolidation or effusion. Head CT 11/08/22 12:29 IMPRESSION: No acute intracranial hemorrhage or territorial infarction. Stable chronic postoperative changes with gliosis and encephalomalacia in the right frontal and right temporal lobes. Ex vacuo dilatation of the ventricles and diffuse parenchymal volume loss. Right-sided craniotomy changes. Chest X-Ray 11/12/22 10:32 IMPRESSION: Hypoexpanded lungs with bibasilar platelike atelectasis. Brain MRI 11/12/22 13:15 IMPRESSION: 1. No demonstrated acute intracranial abnormalities. 2. Chronic encephalomalacia of the right temporal, right frontal, and left occipital lobes. Small regions of chronic encephalomalacia in the parasagittal aspects of the bilateral parietal lobes. Moderate underlying microangiopathy and generalized cerebral volume loss. Chest X-Ray 11/14/22 15:52 IMPRESSION: Low lung volumes, bibasilar subsegmental atelectasis and slight elevation of the right hemidiaphragm similar to previous exam. Modified Barium Swallow 11/21/22 15:11 IMPRESSION: Laryngeal penetration on several occasions but no laryngeal aspiration. Mild retention of solid food in the valleculae which cleared with subsequent oral administration of water or thin barium. Correlate with speech therapy results. Medications Medications Current Medications Acetaminophen (Acetaminophen 325 Mg Tablet) 650 mg PO Q6H PRN PRN Reason: Headache/Pain Mild Scale (1-3) Last Admin: 12/21/22 22:33 Dose: 650 mg Al Hydroxide/Mg Hydroxide (Magnesium Hydrox/Alum Hydrox 30 Ml Oral.Susp) 30 ml PO Q6H PRN PRN Reason: Heartburn/Nausea Last Admin: 11/22/22 21:39 Dose: 30 ml Albuterol Sulfate (Albuterol Sulfate 90 Mcg 8 Gm Inhaler) 2 puff INHALE Q6H PRN PRN Reason: Wheezing Alprazolam (Alprazolam 0.25 Mg Tablet) 0.25 mg PO Q4H PRN PRN Reason: severe anxiety Last Admin: 12/22/22 12:54 Dose: 0.25 mg Alprazolam (Alprazolam 0.5 Mg Tablet) 0.5 mg PO BEDTIME TAZ Last Admin: 12/21/22 22:25 Dose: 0.5 mg Amlodipine Besylate (Amlodipine Besylate 5 Mg Tablet) 5 mg PO DAILY TAZ; Protocol Last Admin: 12/22/22 09:02 Dose: 5 mg Benzocaine (Throat Lozenge, Medicated Lozenge) 1 lozenge MUCOUS MEM Q2H PRN PRN Reason: Sore Throat Last Admin: 11/12/22 03:08 Dose: 1 lozenge Calcium Polycarbophil (Calcium Polycarbophil Tablet) 1 tab PO DAILY TAZ Last Admin: 12/22/22 09:04 Dose: 1 tab Docusate Sodium (Docusate Sodium 100 Mg Capsule) 100 mg PO DAILY PRN PRN Reason: constipation Last Admin: 12/13/22 01:31 Dose: 100 mg Finasteride (Finasteride 5 Mg Tablet) 5 mg PO DAILY TAZ Last Admin: 12/22/22 09:02 Dose: 5 mg Gabapentin (Gabapentin 300 Mg Capsule) 300 mg PO TID [facility] Last Admin: 12/22/22 14:49 Dose: 300 mg Guaifenesin/Dextromethorphan (Guaifenesin Dm 200/20/10 Ml 10 Ml Syrup) 10 ml PO Q4H PRN PRN Reason: Cough Last Admin: 11/20/22 05:31 Dose: 10 ml Hydroxyzine HCl (Hydroxyzine Hcl 50 Mg Tablet) 50 mg PO Q4H PRN PRN Reason: Anxiety Last Admin: 12/22/22 16:54 Dose: 50 mg Lamotrigine (Lamotrigine 25 Mg Tablet) 50 mg PO BID [facility] Last Admin: 12/22/22 09:04 Dose: 50 mg Lamotrigine (Lamotrigine 100 Mg Tablet) 100 mg PO BID [facility] Last Admin: 12/22/22 09:03 Dose: 100 mg Latanoprost (Latanoprost 0.005 % Ophth No 2.5 Ml Drops) 1 drop EYE-BOTH BEDTIME [facility] Last Admin: 12/21/22 22:29 Dose: 1 drop Lidocaine (Lidocaine 5 % Ointment 35 Gm) 1 appl TOPICAL QID [facility] Last Admin: 12/22/22 16:45 Dose: Not Given Lisinopril (Lisinopril 20 Mg Tablet) 20 mg PO DAILY [facility]; Protocol Last Admin: 12/22/22 09:02 Dose: 20 mg Magnesium Hydroxide (Milk Of Magnesia 30 Ml Oral.Susp) 30 ml PO DAILY PRN PRN Reason: Constipation Last Admin: 11/28/22 21:13 Dose: 30 ml Melatonin (Melatonin 3 Mg Tablet) 9 mg PO BEDTIME [facility] Last Admin: 12/21/22 22:23 Dose: 9 mg Multi-Ingred Cream/Lotion/Oil/Oint (Mineral Oil/Petrolatum,White 106 Gm Tube) 1 appl TOPICAL BID PRN; Protocol PRN Reason: dry skin Multivitamins/Vitamin C (Multivitamin Tablet) 1 tab PO DAILY [facility] Last Admin: 12/22/22 09:04 Dose: 1 tab Naltrexone HCl (Naltrexone Hcl 50 Mg Tablet) 50 mg PO DAILY [facility] Last Admin: 12/22/22 09:04 Dose: 50 mg Nortriptyline HCl (Nortriptyline Hcl 25 Mg Capsule) 50 mg PO BEDTIME [facility] Last Admin: 12/21/22 22:25 Dose: 50 mg Nystatin (Nystatin Powder 15 Gm Bottle) 1 appl TOPICAL BID [facility]; Protocol Stop: 01/05/23 23:59 Olanzapine (Olanzapine 2.5 Mg Tablet) 2.5 mg PO BEDTIME [facility] Last Admin: 12/21/22 22:25 Dose: 2.5 mg Omeprazole (Omeprazole 20 Mg Capsule.Dr) 20 mg PO BID@0630,1630 [facility] Last Admin: 12/22/22 16:16 Dose: 20 mg Ondansetron HCl (Ondansetron Odt 4 Mg Tab.Rapdis) 4 mg TRANSLINGU Q6H PRN PRN Reason: Nausea and Vomiting Last Admin: 12/17/22 12:26 Dose: 4 mg Oxybutynin Chloride (Oxybutynin Chloride Er 5 Mg Tab.Er.24) 10 mg PO DAILY [facility] Last Admin: 12/22/22 09:03 Dose: 10 mg Polyethylene Glycol (Polyethylene Glycol 3350 17 Gm Powd.Pack) 17 gm PO DAILY@1600 [facility] Last Admin: 12/22/22 16:16 Dose: 17 gm Senna/Docusate Sodium (Sennosides/Docusate Sodium Tablet) 1 tab PO BEDTIME [facility] Tamsulosin HCl (Tamsulosin Hcl 0.4 Mg Capsule) 0.4 mg PO DAILY [facility] Last Admin: 12/22/22 09:02 Dose: 0.4 mg Trazodone HCl (Trazodone Hcl 100 Mg Tablet) 200 mg PO BEDTIME [facility] Last Admin: 12/21/22 22:25 Dose: 200 mg Trazodone HCl (Trazodone Hcl 50 Mg Tablet) 50 mg PO BEDTIME PRN PRN Reason: Insomnia Last Admin: 12/19/22 00:10 Dose: 50 mg Venlafaxine HCl (Venlafaxine Hcl Er 150 Mg Cap.Er.24h) 150 mg PO DAILY [facility] Last Admin: 12/22/22 09:02 Dose: 150 mg Vitamin D (Cholecalciferol (Vitamin D3) 10 Mcg Tablet) 10 mcg PO DAILY [facility] Last Admin: 12/22/22 09:03 Dose: 10 mcg Allergies Allergies Allergy/AdvReac Type Severity Reaction Status Date / Time fentanyl [FENTANYL] Allergy Intermediate unknown Verified 04/08/22 07:00 Assessment & Plan Assessment & Plan (1) Major depressive disorder, recurrent severe without psychotic features: Status: Acute Code(s): F33.2 - Major depressive disorder, recurrent severe without psychotic features (2) Cognitive and neurobehavioral dysfunction following brain injury: Status: Acute Code(s): G31.89 - Other specified degenerative diseases of nervous system; F09 - Unspecified mental disorder due to known physiological condition; S06.9X9S - Unspecified intracranial injury with loss of consciousness of unspecified duration, sequela (3) Swallowing dysfunction: Status: Acute Code(s): R13.10 - Dysphagia, unspecified Assessment and Plan: See specific swallowing plan Plan The patient is a 67-year-old male, , 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 At this moment also, he has problems of housing since he will not be able to go back to his regular correction.? The patient has a long history of alcohol use disorder that he was not able to process or work on it.? Plan 1. Continue with the same treatment.? 2. We will work with the social service worker and DDS for a proper discharge planning.? 3. Continue with recommendations of Wound Care. 4. Increase Seroquel up to 150 mg po qhs. 10/30/22 restart lorazepam 1 hs prn insomnia norterip inc 100 hs level in 50 s monitor ekg 11/01 continue current tx plan 11/02/22- Bedside Swallow eval. s/p choking episode on 11/01. 2021 Increase Lexapro encourage CBT skills need supportive coaching patient increasingly hopeless helpless denies active self-harm check nortriptyline level 11/05/2022 Check nortriptyline level patient on Seroquel nortriptyline Lexapro.? Needs much reassurance and support the has difficulty interacting at times secondary to a hopelessness irritability passive SI.? Patient has having difficulty maintaining his posture in his chair unclear why this is happening for discuss safety issues with nursing will need OT and potentially Pt input? 11/06/2022 Patient depressed and anxious tried to review cognitive behavioral perspectives ways to emotionally manage current situational factors.? Patient has for an extended period of time had great deal of difficulty with any emotional a mental coping strategies.? Will and lorazepam p.r.n. 0.5 mg to help with anxiety trying get clarity from DTS regarding transition to correction setting positive reinforcement for patient's efforts at physical conditioning becomes demoralized easily denies active self-harm 11/07 continue tx. 11/08 no changes, pt had unwitnessed fall and hit head, head CT negative 11/09 no changes 11/10 no changes 11/11 no changes 11/12/22 acute med w/u neg incentive spirometer cont medication cbt skills cont pt/ot 11/12 medical workout came back negative. No changes in current treatment 11/14/2022 Patient depressed withdrawn more fatigued 11/18/21 taper lexapro start effexor lower seroquel sec to fatigue 11/19/21 Seroquel lowered inc venlafax 11/21/21 Pt with swallowing problem motor dysfx lower gabapentin lower nortriptyline lower seroquel 11/22 continue tx. 11/23 continue tx. 11/24/2022 More alert with lowered gabapentin nortriptyline lorazepam lower Lamictal to 150 b.i.d. hope to improve patient's balance motor function and consideration swallowing dysfunction can try and taper down on Seroquel in case this is also a contributing factor 11/25/2022 Patient has been active with OT change to venlafaxine from Lexapro and lowering of nortriptyline seems show some improvement Discharge planning continues 11/26/2022 the patient reports worsening his mood being more depressed and anxious. We will discuss the case with Dr. Haskins. 11/27/2022 no changes on mental status, we will keep on the same treatment 11/29 continue current treatment plan 11/30 continue current treatment plan 12/02/2022 Effexor was increased to 112.5 mg Seroquel have been lower to 50 mg and Mirapex discontinued hope being this will improve physical functioning 12/03/2021 Continue Effexor 112 Seroquel 50 at bedtime patient's diet was able to be increased 12/04/2022 Increase Effexor to 150 mg continue physical therapy on the unit reviewed cognitive behavioral and positive supports Stop Seroquel will try olanzapine 2.5 mg at bedtime 12/05/2022 Patient seems improved with increase Effexor and change to olanzapine no further change at this time swallowing improved with chopped diet has discharge planning meeting coming up in 3 days 12/06: Continue current regimen and plans 12/07: Continue current plans and regimen No change of treatment on 12/13 and 12/14 12/15- d/c metamucil, scheduled colace/senna, continue miralax. Increase atarax for anxiety- monitor excessive sedation, in combination with anticholinergic medications. 12/16 continue current medications. 12/17 continue tx. 12/18 continue tx. 12/19 continue tx. 12/20: D/C ativan and replace with xanax at equivalent dosing, as xanax is the only benzodiazepine associated with improvement in depression (as well as having a faster onset than ativan, and being helpful for anxiety). otherwise continue prior mgmt. AUD noted, but it sounds as if pt will be living in supervised settings moving forward and will not have the access to his medications which would be required for abuse. 12/21: anxiety remains inadequately treated, asking for xanax dosing increase, deferred to attending MD who returns tomorrow. dermacin cream changed from scheduled to PRN per RN request as pt does not need it all the time. otherwise previous mgmt unchanged. 12/22 continue current tx. Reason for contiued inpatient stay Substantial Risk for: harm to self Time Spent With Patient Time: Total time managing care of this patient today ____ minutes.
[2022-12-22] MEDS: polyethylene glycoL 3350 17 GM POWD.PACK PO (16:16)
[2022-12-22 18:00] VITALS: BP 133/64; PULSE 64; RESP 16; TEMP 36.3; O2SAT 95
[2022-12-22] MEDS: Acetaminophen 325 MG TABLET 650 MG PO (21:41)
[2022-12-22] MEDS: OLANZapine 2.5 MG TABLET PO (22:17)
[2022-12-22] MEDS: Melatonin 3 MG TABLET 9 MG PO (22:17)
[2022-12-22] MEDS: Sennosides/Docusate Sodium TABLET 1 TAB PO (22:19)
[2022-12-22] MEDS: Nortriptyline HCl 25 MG CAPSULE 50 MG PO (22:19)
[2022-12-22] MEDS: traZODone HCL 100 MG TABLET 200 MG PO (22:21)
[2022-12-22] MEDS: Lidocaine 5 % Ointment 35 GM 1 APPL TOPICAL (22:24)
[2022-12-22] MEDS: Mineral Oil/Petrolatum,White 106 GM Tube 1 APPL TOPICAL (22:24)
[2022-12-22] MEDS: ALPRAZolam 0.5 MG TABLET PO (22:27)
[2022-12-22] MEDS: Nystatin Powder 15 GM BOTTLE 1 APPL TOPICAL (22:28)
[2022-12-22] MEDS: Latanoprost 0.005 % Ophth Sol 2.5 ML DROPS 1 DROP EYE-BOTH (22:31)
[2022-12-23] MEDS: Finasteride 5 MG TABLET PO (08:48)
[2022-12-23] MEDS: Cholecalciferol (Vitamin D3) 10 MCG TABLET PO (08:49)
[2022-12-23] MEDS: lamoTRIgine 25 MG TABLET 50 MG PO ×2 (08:49→22:36)
[2022-12-23] MEDS: Multivitamin TABLET 1 TAB PO (08:49)
[2022-12-23] MEDS: Gabapentin 300 MG CAPSULE PO ×3 (08:49→22:36)
[2022-12-23 08:50] VITALS: BP 121/55; PULSE 73; RESP 18; O2SAT 97
[2022-12-23] MEDS: Omeprazole 20 MG CAPSULE.DR PO ×2 (08:50→16:29)
[2022-12-23] MEDS: Naltrexone HCl 50 MG TABLET PO (08:51)
[2022-12-23] MEDS: lamoTRIgine 100 MG TABLET PO ×2 (08:51→22:36)
[2022-12-23] MEDS: calcium polycarbophiL TABLET 1 TAB PO (08:51)
[2022-12-23] MEDS: Venlafaxine HCl ER 150 MG CAP.ER.24H PO (08:51)
[2022-12-23] MEDS: Tamsulosin HCL 0.4 MG CAPSULE PO (08:54)
[2022-12-23] MEDS: polyethylene glycoL 3350 17 GM POWD.PACK PO (16:29)
[2022-12-23 18:00] VITALS: BP 136/67; PULSE 70; RESP 17; TEMP 36.2; O2SAT 98
--- NOTE | 2022-12-23 21:39 | P.PNPSI_ITS ---
Subjective Subjective Date of Service: 12/23/22 Reason For Visit: Depression hopelessness irritability Subjective Notes: Conditional Voluntary Healthcare Proxy: No Guardianship: No Interim History: The patient is ruminating trying to maintain a positive attitude but overwhelmed at times with anxiety and rumination has been changed from lorazepam to alprazolam Medication Compliance: Yes Mental Status Exam Mental Status Exam Narrative: Appearance: casually groomed, good hygiene, in NAD Behavior: cooperative Psychomotor: no agitation or retardation noted Speech: clear, some delayed in response, soft tone, spontaneous TP: tangential TC: no psychosis, feeling too anxious Mood: anxious Affect: brighter, calmer than reported mood SI: not today, but tends to be intermittent, passive, chronic HI: none Delusions: none Insight/judgment: fair x 2. Memory/cog: alert, oriented x 3. not formally tested. Diagnostics Vital Signs (24Hr): Vital Signs - 24 hr 12/23/22 08:50 12/23/22 18:00 Temperature 97.1 F Pulse Rate 73 70 Respiratory Rate 18 17 Blood Pressure 121/55 L 136/67 Pulse Oximetry 97 98 Oxygen Delivery Method Room Air Room Air BMI result Body Mass Index 30.2 Labs 11/13/22 07:43 11/12/22 09:32 Imaging Radiology Impressions: ITS Impressions Chest X-Ray 10/20/22 15:45 IMPRESSION: 1. Low lung volumes with bibasilar linear disc atelectasis versus scarring. 2. No airspace consolidation or effusion. Head CT 11/08/22 12:29 IMPRESSION: No acute intracranial hemorrhage or territorial infarction. Stable chronic postoperative changes with gliosis and encephalomalacia in the right frontal and right temporal lobes. Ex vacuo dilatation of the ventricles and diffuse parenchymal volume loss. Right-sided craniotomy changes. Chest X-Ray 11/12/22 10:32 IMPRESSION: Hypoexpanded lungs with bibasilar platelike atelectasis. Brain MRI 11/12/22 13:15 IMPRESSION: 1. No demonstrated acute intracranial abnormalities. 2. Chronic encephalomalacia of the right temporal, right frontal, and left occipital lobes. Small regions of chronic encephalomalacia in the parasagittal aspects of the bilateral parietal lobes. Moderate underlying microangiopathy and generalized cerebral volume loss. Chest X-Ray 11/14/22 15:52 IMPRESSION: Low lung volumes, bibasilar subsegmental atelectasis and slight elevation of the right hemidiaphragm similar to previous exam. Modified Barium Swallow 11/21/22 15:11 IMPRESSION: Laryngeal penetration on several occasions but no laryngeal aspiration. Mild retention of solid food in the valleculae which cleared with subsequent oral administration of water or thin barium. Correlate with speech therapy results. Medications Medications Current Medications Acetaminophen (Acetaminophen 325 Mg Tablet) 650 mg PO Q6H PRN PRN Reason: Headache/Pain Mild Scale (1-3) Last Admin: 12/22/22 21:41 Dose: 650 mg Al Hydroxide/Mg Hydroxide (Magnesium Hydrox/Alum Hydrox 30 Ml Oral.Susp) 30 ml PO Q6H PRN PRN Reason: Heartburn/Nausea Last Admin: 11/22/22 21:39 Dose: 30 ml Albuterol Sulfate (Albuterol Sulfate 90 Mcg 8 Gm Inhaler) 2 puff INHALE Q6H PRN PRN Reason: Wheezing Alprazolam (Alprazolam 0.25 Mg Tablet) 0.25 mg PO Q4H PRN PRN Reason: severe anxiety Last Admin: 12/22/22 12:54 Dose: 0.25 mg Alprazolam (Alprazolam 0.5 Mg Tablet) 0.5 mg PO BEDTIME [facility] Last Admin: 12/22/22 22:27 Dose: 0.5 mg Amlodipine Besylate (Amlodipine Besylate 5 Mg Tablet) 5 mg PO DAILY [facility]; Protocol Last Admin: 12/23/22 09:58 Dose: Not Given Benzocaine (Throat Lozenge, Medicated Lozenge) 1 lozenge MUCOUS MEM Q2H PRN PRN Reason: Sore Throat Last Admin: 11/12/22 03:08 Dose: 1 lozenge Calcium Polycarbophil (Calcium Polycarbophil Tablet) 1 tab PO DAILY [facility] Last Admin: 12/23/22 08:51 Dose: 1 tab Docusate Sodium (Docusate Sodium 100 Mg Capsule) 100 mg PO DAILY PRN PRN Reason: constipation Last Admin: 12/13/22 01:31 Dose: 100 mg Finasteride (Finasteride 5 Mg Tablet) 5 mg PO DAILY [facility] Last Admin: 12/23/22 08:48 Dose: 5 mg Gabapentin (Gabapentin 300 Mg Capsule) 300 mg PO TID [facility] Last Admin: 12/23/22 16:29 Dose: 300 mg Guaifenesin/Dextromethorphan (Guaifenesin Dm 200/20/10 Ml 10 Ml Syrup) 10 ml PO Q4H PRN PRN Reason: Cough Last Admin: 11/20/22 05:31 Dose: 10 ml Hydroxyzine HCl (Hydroxyzine Hcl 50 Mg Tablet) 50 mg PO Q4H PRN PRN Reason: Anxiety Last Admin: 12/22/22 16:54 Dose: 50 mg Lamotrigine (Lamotrigine 25 Mg Tablet) 50 mg PO BID [facility] Last Admin: 12/23/22 08:49 Dose: 50 mg Lamotrigine (Lamotrigine 100 Mg Tablet) 100 mg PO BID [facility] Last Admin: 12/23/22 08:51 Dose: 100 mg Latanoprost (Latanoprost 0.005 % Ophth No 2.5 Ml Drops) 1 drop EYE-BOTH BEDTIME [facility] Last Admin: 12/22/22 22:31 Dose: 1 drop Lidocaine (Lidocaine 5 % Ointment 35 Gm) 1 appl TOPICAL QID [facility] Last Admin: 12/23/22 17:34 Dose: Not Given Lisinopril (Lisinopril 20 Mg Tablet) 20 mg PO DAILY [facility]; Protocol Last Admin: 12/23/22 10:00 Dose: Not Given Magnesium Hydroxide (Milk Of Magnesia 30 Ml Oral.Susp) 30 ml PO DAILY PRN PRN Reason: Constipation Last Admin: 11/28/22 21:13 Dose: 30 ml Melatonin (Melatonin 3 Mg Tablet) 9 mg PO BEDTIME [facility] Last Admin: 12/22/22 22:17 Dose: 9 mg Multi-Ingred Cream/Lotion/Oil/Oint (Mineral Oil/Petrolatum,White 106 Gm Tube) 1 appl TOPICAL BID PRN; Protocol PRN Reason: dry skin Multivitamins/Vitamin C (Multivitamin Tablet) 1 tab PO DAILY [facility] Last Admin: 12/23/22 08:49 Dose: 1 tab Naltrexone HCl (Naltrexone Hcl 50 Mg Tablet) 50 mg PO DAILY [facility] Last Admin: 12/23/22 08:51 Dose: 50 mg Nortriptyline HCl (Nortriptyline Hcl 25 Mg Capsule) 50 mg PO BEDTIME [facility] Last Admin: 12/22/22 22:19 Dose: 50 mg Nystatin (Nystatin Powder 15 Gm Bottle) 1 appl TOPICAL BID [facility]; Protocol Stop: 01/05/23 23:59 Last Admin: 12/23/22 10:00 Dose: Not Given Olanzapine (Olanzapine 2.5 Mg Tablet) 2.5 mg PO BEDTIME [facility] Last Admin: 12/22/22 22:17 Dose: 2.5 mg Omeprazole (Omeprazole 20 Mg Capsule.Dr) 20 mg PO BID@0630,1630 [facility] Last Admin: 12/23/22 16:29 Dose: 20 mg Ondansetron HCl (Ondansetron Odt 4 Mg Tab.Rapdis) 4 mg TRANSLINGU Q6H PRN PRN Reason: Nausea and Vomiting Last Admin: 12/17/22 12:26 Dose: 4 mg Oxybutynin Chloride (Oxybutynin Chloride Er 5 Mg Tab.Er.24) 10 mg PO DAILY [facility] Last Admin: 12/23/22 08:48 Dose: 10 mg Polyethylene Glycol (Polyethylene Glycol 3350 17 Gm Powd.Pack) 17 gm PO DAILY@1600 [facility] Last Admin: 12/23/22 16:29 Dose: 17 gm Senna/Docusate Sodium (Sennosides/Docusate Sodium Tablet) 1 tab PO BEDTIME [facility] Last Admin: 12/22/22 22:19 Dose: 1 tab Tamsulosin HCl (Tamsulosin Hcl 0.4 Mg Capsule) 0.4 mg PO DAILY [facility] Last Admin: 12/23/22 08:54 Dose: 0.4 mg Trazodone HCl (Trazodone Hcl 100 Mg Tablet) 200 mg PO BEDTIME [facility] Last Admin: 12/22/22 22:21 Dose: 200 mg Trazodone HCl (Trazodone Hcl 50 Mg Tablet) 50 mg PO BEDTIME PRN PRN Reason: Insomnia Last Admin: 12/19/22 00:10 Dose: 50 mg Venlafaxine HCl (Venlafaxine Hcl Er 150 Mg Cap.Er.24h) 150 mg PO DAILY [facility] Last Admin: 12/23/22 08:51 Dose: 150 mg Vitamin D (Cholecalciferol (Vitamin D3) 10 Mcg Tablet) 10 mcg PO DAILY [facility] Last Admin: 12/23/22 08:49 Dose: 10 mcg Allergies Allergies Allergy/AdvReac Type Severity Reaction Status Date / Time fentanyl [FENTANYL] Allergy Intermediate unknown Verified 04/08/22 07:00 Assessment & Plan Assessment & Plan (1) Cognitive and neurobehavioral dysfunction following brain injury: Status: Acute Code(s): G31.89 - Other specified degenerative diseases of nervous system; F09 - Unspecified mental disorder due to known physiological condition; S06.9X9S - Unspecified intracranial injury with loss of consciousness of unspecified duration, sequela (2) Major depressive disorder, recurrent severe without psychotic features: Status: Acute Code(s): F33.2 - Major depressive disorder, recurrent severe without psychotic features (3) Swallowing dysfunction: Status: Acute Code(s): R13.10 - Dysphagia, unspecified Assessment and Plan: See specific swallowing plan Plan The patient is a 67-year-old male, , 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 At this moment also, he has problems of housing since he will not be able to go back to his regular senior living.? The patient has a long history of alcohol use disorder that he was not able to process or work on it.? Plan 1. Continue with the same treatment.? 2. We will work with the social services manager and DDS for a proper discharge planning.? 3. Continue with recommendations of Wound Care. 4. Increase Seroquel up to 150 mg po qhs. 10/30/22 restart lorazepam 1 hs prn insomnia norterip inc 100 hs level in 50 s monitor ekg 11/01 continue current tx plan 11/02/22- Bedside Swallow eval. s/p choking episode on 11/01. 2021 Increase Lexapro encourage CBT skills need supportive coaching patient increasingly hopeless helpless denies active self-harm check nortriptyline level 11/05/2022 Check nortriptyline level patient on Seroquel nortriptyline Lexapro.? Needs much reassurance and support the has difficulty interacting at times secondary to a hopelessness irritability passive SI.? Patient has having difficulty maintaining his posture in his chair unclear why this is happening for discuss safety issues with nursing will need OT and potentially Pt input? 11/06/2022 Patient depressed and anxious tried to review cognitive behavioral perspectives ways to emotionally manage current situational factors.? Patient has for an extended period of time had great deal of difficulty with any emotional a mental coping strategies.? Will and lorazepam p.r.n. 0.5 mg to help with anxiety trying get clarity from DTS regarding transition to senior living setting positive reinforcement for patient's efforts at physical conditioning becomes demoralized easily denies active self-harm 11/07 continue tx. 11/08 no changes, pt had unwitnessed fall and hit head, head CT negative 11/09 no changes 11/10 no changes 11/11 no changes 11/12/22 acute med w/u neg incentive spirometer cont medication cbt skills cont pt/ot 11/12 medical workout came back negative. No changes in current treatment 11/14/2022 Patient depressed withdrawn more fatigued 11/18/21 taper lexapro start effexor lower seroquel sec to fatigue 11/19/21 Seroquel lowered inc venlafax 11/21/21 Pt with swallowing problem motor dysfx lower gabapentin lower nortriptyline lower seroquel 11/22 continue tx. 11/23 continue tx. 11/24/2022 More alert with lowered gabapentin nortriptyline lorazepam lower Lamictal to 150 b.i.d. hope to improve patient's balance motor function and consideration swallowing dysfunction can try and taper down on Seroquel in case this is also a contributing factor 11/25/2022 Patient has been active with OT change to venlafaxine from Lexapro and lowering of nortriptyline seems show some improvement Discharge planning continues 11/26/2022 the patient reports worsening his mood being more depressed and anxious. We will discuss the case with Dr. Haskins. 11/27/2022 no changes on mental status, we will keep on the same treatment 11/29 continue current treatment plan 11/30 continue current treatment plan 12/02/2022 Effexor was increased to 112.5 mg Seroquel have been lower to 50 mg and Mirapex discontinued hope being this will improve physical functioning 12/03/2021 Continue Effexor 112 Seroquel 50 at bedtime patient's diet was able to be increased 12/04/2022 Increase Effexor to 150 mg continue physical therapy on the unit reviewed cognitive behavioral and positive supports Stop Seroquel will try olanzapine 2.5 mg at bedtime 12/05/2022 Patient seems improved with increase Effexor and change to olanzapine no further change at this time swallowing improved with chopped diet has discharge santy dotson meeting coming up in 3 days 12/06: Continue current regimen and plans 12/07: Continue current plans and regime 12/08/22 Continue Effexor encourage lower doses of medication to decrease \sedation impro ves following Continue discharge planning help with transition to senior living setting 12/23/2022 Continue alprazolam Effexor encourage perspective on thinking relaxation breathing Patient educated on: therapeutic strategies Informed Consent: understands Reason for contiued inpatient stay Substantial Risk for: inability to function and rapid decompensation Time Spent With Patient Time: Total time managing care of this patient today ____ minutes.
[2022-12-23] MEDS: OLANZapine 2.5 MG TABLET PO (22:36)
[2022-12-23] MEDS: Melatonin 3 MG TABLET 9 MG PO (22:36)
[2022-12-23] MEDS: traZODone HCL 100 MG TABLET 200 MG PO (22:36)
[2022-12-23] MEDS: ALPRAZolam 0.5 MG TABLET PO (22:37)
[2022-12-23] MEDS: Sennosides/Docusate Sodium TABLET 1 TAB PO (22:37)
[2022-12-23] MEDS: Nortriptyline HCl 25 MG CAPSULE 50 MG PO (22:37)
[2022-12-23] MEDS: Latanoprost 0.005 % Ophth Sol 2.5 ML DROPS 1 DROP EYE-BOTH (22:42)
[2022-12-23] MEDS: Lidocaine 5 % Ointment 35 GM 1 APPL TOPICAL (22:43)
[2022-12-23] MEDS: Nystatin Powder 15 GM BOTTLE 1 APPL TOPICAL (22:43)
[2022-12-23] MEDS: Acetaminophen 325 MG TABLET 650 MG PO (23:22)
[2022-12-24 06:00] VITALS: BP 130/62; PULSE 72; RESP 18; TEMP 36.7; O2SAT 98
[2022-12-24] MEDS: calcium polycarbophiL TABLET 1 TAB PO (08:36)
[2022-12-24] MEDS: Gabapentin 300 MG CAPSULE PO ×3 (08:37→21:22)
[2022-12-24] MEDS: lamoTRIgine 25 MG TABLET 50 MG PO ×2 (08:37→21:21)
[2022-12-24] MEDS: Finasteride 5 MG TABLET PO (08:38)
[2022-12-24] MEDS: Naltrexone HCl 50 MG TABLET PO (08:38)
[2022-12-24] MEDS: Venlafaxine HCl ER 150 MG CAP.ER.24H PO (08:38)
[2022-12-24] MEDS: lisinopriL 20 MG TABLET PO (08:38)
[2022-12-24] MEDS: lamoTRIgine 100 MG TABLET PO ×2 (08:38→21:23)
[2022-12-24] MEDS: Omeprazole 20 MG CAPSULE.DR PO ×2 (08:39→16:44)
[2022-12-24] MEDS: Cholecalciferol (Vitamin D3) 10 MCG TABLET PO (08:39)
[2022-12-24] MEDS: Multivitamin TABLET 1 TAB PO (08:39)
[2022-12-24] MEDS: amLODIPine Besylate 5 MG TABLET PO (08:39)
[2022-12-24] MEDS: Tamsulosin HCL 0.4 MG CAPSULE PO (08:39)
[2022-12-24] MEDS: ALPRAZolam 0.25 MG TABLET PO (10:56)
[2022-12-24] MEDS: polyethylene glycoL 3350 17 GM POWD.PACK PO (16:44)
[2022-12-24 18:00] VITALS: BP 131/69; PULSE 71; RESP 18; TEMP 36.6; O2SAT 96
[2022-12-24] MEDS: Acetaminophen 325 MG TABLET 650 MG PO (20:38)
--- NOTE | 2022-12-24 20:57 | P.PNPSI_ITS ---
Subjective Subjective Date of Service: 12/24/22 Reason For Visit: Depression hopelessness irritability Subjective Notes: Conditional Voluntary Healthcare Proxy: No Guardianship: No Medication Compliance: Yes Attending Groups: Intermittent Mental Status Exam Mental Status Exam Patient Appearance: Fatigued Patient Orientation: Person, Place, Time and Situation Level of Consciousness: Awake and Appropriate Mood Description: Anxious and Apprehensive Affect Description: Constricted, Anxious and Apprehensive Ability to Follow Directions: Good Depressive Symptoms: Increased Anxiety and Increased Irritability Judgement and Insight: Patient ruminating on upcoming potential transition wants severe the see the house anxiety about transition Diagnostics Vital Signs (24Hr): Vital Signs - 24 hr 12/24/22 06:00 Temperature 98.0 F Pulse Rate 72 Respiratory Rate 18 Blood Pressure 130/62 Pulse Oximetry 98 BMI result Body Mass Index 30.2 Labs 11/13/22 07:43 11/12/22 09:32 Imaging Radiology Impressions: ITS Impressions Chest X-Ray 10/20/22 15:45 IMPRESSION: 1. Low lung volumes with bibasilar linear disc atelectasis versus scarring. 2. No airspace consolidation or effusion. Head CT 11/08/22 12:29 IMPRESSION: No acute intracranial hemorrhage or territorial infarction. Stable chronic postoperative changes with gliosis and encephalomalacia in the right frontal and right temporal lobes. Ex vacuo dilatation of the ventricles and diffuse parenchymal volume loss. Right-sided craniotomy changes. Chest X-Ray 11/12/22 10:32 IMPRESSION: Hypoexpanded lungs with bibasilar platelike atelectasis. Brain MRI 11/12/22 13:15 IMPRESSION: 1. No demonstrated acute intracranial abnormalities. 2. Chronic encephalomalacia of the right temporal, right frontal, and left occipital lobes. Small regions of chronic encephalomalacia in the parasagittal aspects of the bilateral parietal lobes. Moderate underlying microangiopathy and generalized cerebral volume loss. Chest X-Ray 11/14/22 15:52 IMPRESSION: Low lung volumes, bibasilar subsegmental atelectasis and slight elevation of the right hemidiaphragm similar to previous exam. Modified Barium Swallow 11/21/22 15:11 IMPRESSION: Laryngeal penetration on several occasions but no laryngeal aspiration. Mild retention of solid food in the valleculae which cleared with subsequent oral administration of water or thin barium. Correlate with speech therapy results. Medications Medications Current Medications Acetaminophen (Acetaminophen 325 Mg Tablet) 650 mg PO Q6H PRN PRN Reason: Headache/Pain Mild Scale (1-3) Last Admin: 12/24/22 20:38 Dose: 650 mg Al Hydroxide/Mg Hydroxide (Magnesium Hydrox/Alum Hydrox 30 Ml Oral.Susp) 30 ml PO Q6H PRN PRN Reason: Heartburn/Nausea Last Admin: 11/22/22 21:39 Dose: 30 ml Albuterol Sulfate (Albuterol Sulfate 90 Mcg 8 Gm Inhaler) 2 puff INHALE Q6H PRN PRN Reason: Wheezing Alprazolam (Alprazolam 0.25 Mg Tablet) 0.25 mg PO Q4H PRN PRN Reason: severe anxiety Last Admin: 12/24/22 10:56 Dose: 0.25 mg Alprazolam (Alprazolam 0.5 Mg Tablet) 0.5 mg PO BEDTIME [facility] Last Admin: 12/23/22 22:37 Dose: 0.5 mg Amlodipine Besylate (Amlodipine Besylate 5 Mg Tablet) 5 mg PO DAILY [facility]; Protocol Last Admin: 12/24/22 08:39 Dose: 5 mg Benzocaine (Throat Lozenge, Medicated Lozenge) 1 lozenge MUCOUS MEM Q2H PRN PRN Reason: Sore Throat Last Admin: 11/12/22 03:08 Dose: 1 lozenge Calcium Polycarbophil (Calcium Polycarbophil Tablet) 1 tab PO DAILY [facility] Last Admin: 12/24/22 08:36 Dose: 1 tab Docusate Sodium (Docusate Sodium 100 Mg Capsule) 100 mg PO DAILY PRN PRN Reason: constipation Last Admin: 12/13/22 01:31 Dose: 100 mg Finasteride (Finasteride 5 Mg Tablet) 5 mg PO DAILY [facility] Last Admin: 12/24/22 08:38 Dose: 5 mg Gabapentin (Gabapentin 300 Mg Capsule) 300 mg PO TID TAZ Last Admin: 12/24/22 16:44 Dose: 300 mg Guaifenesin/Dextromethorphan (Guaifenesin Dm 200/20/10 Ml 10 Ml Syrup) 10 ml PO Q4H PRN PRN Reason: Cough Last Admin: 11/20/22 05:31 Dose: 10 ml Hydroxyzine HCl (Hydroxyzine Hcl 50 Mg Tablet) 50 mg PO Q4H PRN PRN Reason: Anxiety Last Admin: 12/22/22 16:54 Dose: 50 mg Lamotrigine (Lamotrigine 25 Mg Tablet) 50 mg PO BID [facility] Last Admin: 12/24/22 08:37 Dose: 50 mg Lamotrigine (Lamotrigine 100 Mg Tablet) 100 mg PO BID [facility] Last Admin: 12/24/22 08:38 Dose: 100 mg Latanoprost (Latanoprost 0.005 % Ophth No 2.5 Ml Drops) 1 drop EYE-BOTH BEDTIME [facility] Last Admin: 12/23/22 22:42 Dose: 1 drop Lidocaine (Lidocaine 5 % Ointment 35 Gm) 1 appl TOPICAL QID [facility] Last Admin: 12/24/22 16:51 Dose: Not Given Lisinopril (Lisinopril 20 Mg Tablet) 20 mg PO DAILY [facility]; Protocol Last Admin: 12/24/22 08:38 Dose: 20 mg Magnesium Hydroxide (Milk Of Magnesia 30 Ml Oral.Susp) 30 ml PO DAILY PRN PRN Reason: Constipation Last Admin: 11/28/22 21:13 Dose: 30 ml Melatonin (Melatonin 3 Mg Tablet) 9 mg PO BEDTIME [facility] Last Admin: 12/23/22 22:36 Dose: 9 mg Multi-Ingred Cream/Lotion/Oil/Oint (Mineral Oil/Petrolatum,White 106 Gm Tube) 1 appl TOPICAL BID PRN; Protocol PRN Reason: dry skin Multivitamins/Vitamin C (Multivitamin Tablet) 1 tab PO DAILY [facility] Last Admin: 12/24/22 08:39 Dose: 1 tab Naltrexone HCl (Naltrexone Hcl 50 Mg Tablet) 50 mg PO DAILY [facility] Last Admin: 12/24/22 08:38 Dose: 50 mg Nortriptyline HCl (Nortriptyline Hcl 25 Mg Capsule) 50 mg PO BEDTIME [facility] Last Admin: 12/23/22 22:37 Dose: 50 mg Nystatin (Nystatin Powder 15 Gm Bottle) 1 appl TOPICAL BID [facility]; Protocol Stop: 01/05/23 23:59 Last Admin: 12/24/22 08:39 Dose: Not Given Olanzapine (Olanzapine 2.5 Mg Tablet) 2.5 mg PO BEDTIME [facility] Last Admin: 12/23/22 22:36 Dose: 2.5 mg Omeprazole (Omeprazole 20 Mg Capsule.) 20 mg PO BID@0630,1630 [facility] Last Admin: 12/24/22 16:44 Dose: 20 mg Ondansetron HCl (Ondansetron Odt 4 Mg Tab.Rapdis) 4 mg TRANSLINGU Q6H PRN PRN Reason: Nausea and Vomiting Last Admin: 12/17/22 12:26 Dose: 4 mg Oxybutynin Chloride (Oxybutynin Chloride Er 5 Mg Tab.Er.24) 10 mg PO DAILY [facility] Last Admin: 12/24/22 08:37 Dose: 10 mg Polyethylene Glycol (Polyethylene Glycol 3350 17 Gm Powd.Pack) 17 gm PO DAILY@1600 [facility] Last Admin: 12/24/22 16:44 Dose: 17 gm Senna/Docusate Sodium (Sennosides/Docusate Sodium Tablet) 1 tab PO BEDTIME [facility] Last Admin: 12/23/22 22:37 Dose: 1 tab Tamsulosin HCl (Tamsulosin Hcl 0.4 Mg Capsule) 0.4 mg PO DAILY [facility] Last Admin: 12/24/22 08:39 Dose: 0.4 mg Trazodone HCl (Trazodone Hcl 100 Mg Tablet) 200 mg PO BEDTIME [facility] Last Admin: 12/23/22 22:36 Dose: 200 mg Trazodone HCl (Trazodone Hcl 50 Mg Tablet) 50 mg PO BEDTIME PRN PRN Reason: Insomnia Last Admin: 12/19/22 00:10 Dose: 50 mg Venlafaxine HCl (Venlafaxine Hcl Er 150 Mg Cap.Er.24h) 150 mg PO DAILY [facility] Last Admin: 12/24/22 08:38 Dose: 150 mg Vitamin D (Cholecalciferol (Vitamin D3) 10 Mcg Tablet) 10 mcg PO DAILY [facility] Last Admin: 12/24/22 08:39 Dose: 10 mcg Allergies Allergies Allergy/AdvReac Type Severity Reaction Status Date / Time fentanyl [FENTANYL] Allergy Intermediate unknown Verified 04/08/22 07:00 Assessment & Plan Assessment & Plan (1) Cognitive and neurobehavioral dysfunction following brain injury: Status: Acute Code(s): G31.89 - Other specified degenerative diseases of nervous system; F09 - Unspecified mental disorder due to known physiological condition; S06.9X9S - Unspecified intracranial injury with loss of consciousness of unspecified duration, sequela (2) Major depressive disorder, recurrent severe without psychotic features: Status: Acute Code(s): F33.2 - Major depressive disorder, recurrent severe without psychotic features (3) Swallowing dysfunction: Status: Acute Code(s): R13.10 - Dysphagia, unspecified Assessment and Plan: See specific swallowing plan Plan The patient is a 67-year-old male, , 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 At this moment also, he has problems of housing since he will not be able to go back to his regular half-way.? The patient has a long history of alcohol use disorder that he was not able to process or work on it.? Plan 1. Continue with the same treatment.? 2. We will work with the social sciences chair and DDS for a proper discharge planning.? 3. Continue with recommendations of Wound Care. 4. Increase Seroquel up to 150 mg po qhs. 10/30/22 restart lorazepam 1 hs prn insomnia norterip inc 100 hs level in 50 s monitor ekg 11/01 continue current tx plan 11/02/22- Bedside Swallow eval. s/p choking episode on 11/01. 2021 Increase Lexapro encourage CBT skills need supportive coaching patient increasingly hopeless helpless denies active self-harm check nortriptyline level 11/05/2022 Check nortriptyline level patient on Seroquel nortriptyline Lexapro.? Needs much reassurance and support the has difficulty interacting at times secondary to a hopelessness irritability passive SI.? Patient has having difficulty maintaining his posture in his chair unclear why this is happening for discuss safety issues with nursing will need OT and potentially Pt input? 11/06/2022 Patient depressed and anxious tried to review cognitive behavioral perspectives ways to emotionally manage current situational factors.? Patient has for an extended period of time had great deal of difficulty with any emotional a mental coping strategies.? Will and lorazepam p.r.n. 0.5 mg to help with anxiety trying get clarity from DTS regarding transition to half-way setting positive reinforcement for patient's efforts at physical conditioning becomes demoralized easily denies active self-harm 11/07 continue tx. 11/08 no changes, pt had unwitnessed fall and hit head, head CT negative 11/09 no changes 11/10 no changes 11/11 no changes 11/12/22 acute med w/u neg incentive spirometer cont medication cbt skills cont pt/ot 11/12 medical workout came back negative. No changes in current treatment 11/14/2022 Patient depressed withdrawn more fatigued 11/18/21 taper lexapro start effexor lower seroquel sec to fatigue 11/19/21 Seroquel lowered inc venlafax 11/21/21 Pt with swallowing problem motor dysfx lower gabapentin lower nortriptyline lower seroquel 11/22 continue tx. 11/23 continue tx. 11/24/2022 More alert with lowered gabapentin nortriptyline lorazepam lower Lamictal to 150 b.i.d. hope to improve patient's balance motor function and consideration swallowing dysfunction can try and taper down on Seroquel in case this is also a contributing factor 11/25/2022 Patient has been active with OT change to venlafaxine from Lexapro and lowering of nortriptyline seems show some improvement Discharge planning continues 11/26/2022 the patient reports worsening his mood being more depressed and anxious. We will discuss the case with Dr. Haskins. 11/27/2022 no changes on mental status, we will keep on the same treatment 11/29 continue current treatment plan 11/30 continue current treatment plan 12/02/2022 Effexor was increased to 112.5 mg Seroquel have been lower to 50 mg and Mirapex discontinued hope being this will improve physical functioning 12/03/2021 Continue Effexor 112 Seroquel 50 at bedtime patient's diet was able to be increased 12/04/2022 Increase Effexor to 150 mg continue physical therapy on the unit reviewed cognitive behavioral and positive supports Stop Seroquel will try olanzapine 2.5 mg at bedtime 12/05/2022 Patient seems improved with increase Effexor and change to olanzapine no further change at this time swallowing improved with chopped diet has discharge planning meeting coming up in 3 days 12/06: Continue current regimen and plans 12/07: Continue current plans and regime 12/08/22 Continue Effexor encourage lower doses of medication to decrease \sedation improves following Continue discharge planning help with transition to half-way setting 12/23/2022 Continue alprazolam Effexor encourage perspective on thinking relaxation breathing 12/24/22 Patient continues to be anxious ruminating concerned about transition to not Wanna overmedicate limit alprazolam continue Effexor try and set up a meeting with DDS an half-way patient requires much reassurance and support Reason for contiued inpatient stay Substantial Risk for: harm to self, inability to function, rapid decompensation and med/psych decompensation Time Spent With Patient Time: Total time managing care of this patient today ____ minutes.
[2022-12-24] MEDS: ALPRAZolam 0.5 MG TABLET PO (21:20)
[2022-12-24] MEDS: Nortriptyline HCl 25 MG CAPSULE 50 MG PO (21:21)
[2022-12-24] MEDS: OLANZapine 2.5 MG TABLET PO (21:22)
[2022-12-24] MEDS: Sennosides/Docusate Sodium TABLET 1 TAB PO (21:23)
[2022-12-24] MEDS: traZODone HCL 100 MG TABLET 200 MG PO (21:23)
[2022-12-24] MEDS: Melatonin 3 MG TABLET 9 MG PO (21:24)
[2022-12-24] MEDS: Latanoprost 0.005 % Ophth Sol 2.5 ML DROPS 1 DROP EYE-BOTH (21:34)
[2022-12-24] MEDS: Lidocaine 5 % Ointment 35 GM 1 APPL TOPICAL (21:39)
[2022-12-24] MEDS: Nystatin Powder 15 GM BOTTLE 1 APPL TOPICAL (21:40)
[2022-12-25 06:00] VITALS: BP 102/66; PULSE 68; RESP 16; TEMP 36.9; O2SAT 98
[2022-12-25] MEDS: Finasteride 5 MG TABLET PO (09:22)
[2022-12-25] MEDS: Cholecalciferol (Vitamin D3) 10 MCG TABLET PO (09:22)
[2022-12-25] MEDS: calcium polycarbophiL TABLET 1 TAB PO (09:22)
[2022-12-25] MEDS: lamoTRIgine 25 MG TABLET 50 MG PO ×2 (09:22→21:29)
[2022-12-25] MEDS: Naltrexone HCl 50 MG TABLET PO (09:22)
[2022-12-25] MEDS: Omeprazole 20 MG CAPSULE.DR PO ×2 (09:23→17:58)
[2022-12-25] MEDS: Tamsulosin HCL 0.4 MG CAPSULE PO (09:23)
[2022-12-25] MEDS: lisinopriL 20 MG TABLET PO (09:23)
[2022-12-25] MEDS: Multivitamin TABLET 1 TAB PO (09:23)
[2022-12-25] MEDS: Venlafaxine HCl ER 150 MG CAP.ER.24H PO (09:23)
[2022-12-25] MEDS: Gabapentin 300 MG CAPSULE PO ×3 (09:23→21:30)
[2022-12-25] MEDS: amLODIPine Besylate 5 MG TABLET PO (09:23)
[2022-12-25] MEDS: lamoTRIgine 100 MG TABLET PO ×2 (09:34→21:29)
[2022-12-25 09:41] LABS: COVID-19 Test Negative (Negative); IDNOW Serial# 9DB6401D
[2022-12-25] MEDS: Sodium Phosphate,Mono-Dibasic 133 ML ENEMA PR (14:59)
[2022-12-25 16:20] LABS: Influenza A PCR NEGATIVE (Negative); Influenza B PCR NEGATIVE (Negative); Resp Syncy Virus RNA Qual PCR NEGATIVE (Negative); SARS COV2 PCR INHOUSE NEGATIVE (Negative)
[2022-12-25] MEDS: Acetaminophen 325 MG TABLET 650 MG PO (17:58)
[2022-12-25] MEDS: polyethylene glycoL 3350 17 GM POWD.PACK PO (17:59)
[2022-12-25 18:00] VITALS: BP 126/64; PULSE 80; RESP 18; TEMP 36.2; O2SAT 98
[2022-12-25] MEDS: traZODone HCL 100 MG TABLET 200 MG PO ×2 (21:29→21:32)
[2022-12-25] MEDS: OLANZapine 2.5 MG TABLET PO ×2 (21:30→21:34)
[2022-12-25] MEDS: Melatonin 3 MG TABLET 9 MG PO (21:30)
[2022-12-25] MEDS: Nortriptyline HCl 25 MG CAPSULE 50 MG PO ×2 (21:30→21:32)
[2022-12-25] MEDS: Sennosides/Docusate Sodium TABLET 2 TAB PO (21:33)
--- NOTE | 2022-12-25 21:34 | HO.PSYCHPN ---
Subjective Subjective Date of Service: 12/25/22 Reason For Visit: Depression hopelessness irritability Subjective Notes: Conditional Voluntary Medication Compliance: Yes Side effects from medications: No Review of Systems constipation Mental Status Exam Mental Status Exam Patient Appearance: Fatigued Patient Orientation: Person, Place, Time and Situation Level of Consciousness: Awake and Appropriate Patient Behavior: Appropriate Mood Description: Anxious and Apprehensive Affect Description: Constricted, Anxious and Apprehensive Ability to Follow Directions: Good Depressive Symptoms: Increased Anxiety and Increased Irritability Judgement and Insight: Patient ruminating on upcoming potential transition wants severe the see the house anxiety about transition Diagnostics Vital Signs (24Hr): Vital Signs - 24 hr 12/25/22 06:00 Temperature 98.4 F Pulse Rate 68 Respiratory Rate 16 Blood Pressure 102/66 Pulse Oximetry 98 Oxygen Delivery Method Room Air BMI result Body Mass Index 30.2 Labs 11/13/22 07:43 11/12/22 09:32 Labs: Laboratory Results - last 48 hr 12/25/22 12/25/22 09:10 15:20 COVID-19 ([facility]) Negative COVID-19 Clin Com See Note Influenza Type A (PCR) NEGATIVE Influenza Type B (PCR) NEGATIVE RSV RNA Qual (PCR) NEGATIVE SARS-CoV-2 RNA (RT-PCR) NEGATIVE Imaging Radiology Impressions: ITS Impressions Chest X-Ray 10/20/22 15:45 IMPRESSION: 1. Low lung volumes with bibasilar linear disc atelectasis versus scarring. 2. No airspace consolidation or effusion. Head CT 11/08/22 12:29 IMPRESSION: No acute intracranial hemorrhage or territorial infarction. Stable chronic postoperative changes with gliosis and encephalomalacia in the right frontal and right temporal lobes. Ex vacuo dilatation of the ventricles and diffuse parenchymal volume loss. Right-sided craniotomy changes. Chest X-Ray 11/12/22 10:32 IMPRESSION: Hypoexpanded lungs with bibasilar platelike atelectasis. Brain MRI 11/12/22 13:15 IMPRESSION: 1. No demonstrated acute intracranial abnormalities. 2. Chronic encephalomalacia of the right temporal, right frontal, and left occipital lobes. Small regions of chronic encephalomalacia in the parasagittal aspects of the bilateral parietal lobes. Moderate underlying microangiopathy and generalized cerebral volume loss. Chest X-Ray 11/14/22 15:52 IMPRESSION: Low lung volumes, bibasilar subsegmental atelectasis and slight elevation of the right hemidiaphragm similar to previous exam. Modified Barium Swallow 11/21/22 15:11 IMPRESSION: Laryngeal penetration on several occasions but no laryngeal aspiration. Mild retention of solid food in the valleculae which cleared with subsequent oral administration of water or thin barium. Correlate with speech therapy results. Medications Medications Current Medications Acetaminophen (Acetaminophen 325 Mg Tablet) 650 mg PO Q6H PRN PRN Reason: Headache/Pain Mild Scale (1-3) Last Admin: 12/25/22 17:58 Dose: 650 mg Al Hydroxide/Mg Hydroxide (Magnesium Hydrox/Alum Hydrox 30 Ml Oral.Susp) 30 ml PO Q6H PRN PRN Reason: Heartburn/Nausea Last Admin: 11/22/22 21:39 Dose: 30 ml Albuterol Sulfate (Albuterol Sulfate 90 Mcg 8 Gm Inhaler) 2 puff INHALE Q6H PRN PRN Reason: Wheezing Amlodipine Besylate (Amlodipine Besylate 5 Mg Tablet) 5 mg PO DAILY [facility]; Protocol Last Admin: 12/25/22 09:23 Dose: 5 mg Benzocaine (Throat Lozenge, Medicated Lozenge) 1 lozenge MUCOUS MEM Q2H PRN PRN Reason: Sore Throat Last Admin: 11/12/22 03:08 Dose: 1 lozenge Calcium Polycarbophil (Calcium Polycarbophil Tablet) 1 tab PO DAILY [facility] Last Admin: 12/25/22 09:22 Dose: 1 tab Docusate Sodium (Docusate Sodium 100 Mg Capsule) 100 mg PO DAILY PRN PRN Reason: constipation Last Admin: 12/13/22 01:31 Dose: 100 mg Finasteride (Finasteride 5 Mg Tablet) 5 mg PO DAILY [facility] Last Admin: 12/25/22 09:22 Dose: 5 mg Gabapentin (Gabapentin 300 Mg Capsule) 300 mg PO TID [facility] Last Admin: 12/25/22 21:30 Dose: 300 mg Guaifenesin/Dextromethorphan (Guaifenesin Dm 200/20/10 Ml 10 Ml Syrup) 10 ml PO Q4H PRN PRN Reason: Cough Last Admin: 11/20/22 05:31 Dose: 10 ml Hydroxyzine HCl (Hydroxyzine Hcl 50 Mg Tablet) 50 mg PO Q4H PRN PRN Reason: Anxiety Last Admin: 12/22/22 16:54 Dose: 50 mg Lamotrigine (Lamotrigine 25 Mg Tablet) 50 mg PO BID [facility] Last Admin: 12/25/22 21:29 Dose: 50 mg Lamotrigine (Lamotrigine 100 Mg Tablet) 100 mg PO BID [facility] Last Admin: 12/25/22 21:29 Dose: 100 mg Latanoprost (Latanoprost 0.005 % Ophth No 2.5 Ml Drops) 1 drop EYE-BOTH BEDTIME [facility] Last Admin: 12/24/22 21:34 Dose: 1 drop Lidocaine (Lidocaine 5 % Ointment 35 Gm) 1 appl TOPICAL QID [facility] Last Admin: 12/25/22 18:01 Dose: Not Given Lisinopril (Lisinopril 20 Mg Tablet) 20 mg PO DAILY [facility]; Protocol Last Admin: 12/25/22 09:23 Dose: 20 mg Magnesium Hydroxide (Milk Of Magnesia 30 Ml Oral.Susp) 30 ml PO DAILY PRN PRN Reason: Constipation Last Admin: 11/28/22 21:13 Dose: 30 ml Melatonin (Melatonin 3 Mg Tablet) 9 mg PO BEDTIME [facility] Last Admin: 12/25/22 21:30 Dose: 9 mg Multi-Ingred Cream/Lotion/Oil/Oint (Mineral Oil/Petrolatum,White 106 Gm Tube) 1 appl TOPICAL BID PRN; Protocol PRN Reason: dry skin Multivitamins/Vitamin C (Multivitamin Tablet) 1 tab PO DAILY [facility] Last Admin: 12/25/22 09:23 Dose: 1 tab Naltrexone HCl (Naltrexone Hcl 50 Mg Tablet) 50 mg PO DAILY [facility] Last Admin: 12/25/22 09:22 Dose: 50 mg Nortriptyline HCl (Nortriptyline Hcl 25 Mg Capsule) 50 mg PO BEDTIME [facility] Last Admin: 12/25/22 21:30 Dose: 50 mg Nystatin (Nystatin Powder 15 Gm Bottle) 1 appl TOPICAL BID [facility]; Protocol Stop: 01/05/23 23:59 Last Admin: 12/25/22 09:23 Dose: Not Given Olanzapine (Olanzapine 2.5 Mg Tablet) 2.5 mg PO BEDTIME [facility] Last Admin: 12/25/22 21:30 Dose: 2.5 mg Omeprazole (Omeprazole 20 Mg Capsule.) 20 mg PO BID@0630,1630 [facility] Last Admin: 12/25/22 17:58 Dose: 20 mg Ondansetron HCl (Ondansetron Odt 4 Mg Tab.Rapdis) 4 mg TRANSLINGU Q6H PRN PRN Reason: Nausea and Vomiting Last Admin: 12/17/22 12:26 Dose: 4 mg Oxybutynin Chloride (Oxybutynin Chloride Er 5 Mg Tab.Er.24) 10 mg PO DAILY [facility] Last Admin: 12/25/22 09:22 Dose: 10 mg Polyethylene Glycol (Polyethylene Glycol 3350 17 Gm Powd.Pack) 17 gm PO DAILY@1600 [facility] Last Admin: 12/25/22 17:59 Dose: 17 gm Senna/Docusate Sodium (Sennosides/Docusate Sodium Tablet) 2 tab PO BEDTIME [facility] Tamsulosin HCl (Tamsulosin Hcl 0.4 Mg Capsule) 0.4 mg PO DAILY [facility] Last Admin: 12/25/22 09:23 Dose: 0.4 mg Trazodone HCl (Trazodone Hcl 100 Mg Tablet) 200 mg PO BEDTIME [facility] Last Admin: 12/25/22 21:29 Dose: 200 mg Trazodone HCl (Trazodone Hcl 50 Mg Tablet) 50 mg PO BEDTIME PRN PRN Reason: Insomnia Last Admin: 12/19/22 00:10 Dose: 50 mg Venlafaxine HCl (Venlafaxine Hcl Er 150 Mg Cap.Er.24h) 150 mg PO DAILY [facility] Last Admin: 12/25/22 09:23 Dose: 150 mg Vitamin D (Cholecalciferol (Vitamin D3) 10 Mcg Tablet) 10 mcg PO DAILY [facility] Last Admin: 12/25/22 09:22 Dose: 10 mcg Allergies Allergies Allergy/AdvReac Type Severity Reaction Status Date / Time fentanyl [FENTANYL] Allergy Intermediate unknown Verified 04/08/22 07:00 Assessment & Plan Assessment & Plan (1) Cognitive and neurobehavioral dysfunction following brain injury: Status: Acute Code(s): G31.89 - Other specified degenerative diseases of nervous system; F09 - Unspecified mental disorder due to known physiological condition; S06.9X9S - Unspecified intracranial injury with loss of consciousness of unspecified duration, sequela (2) Major depressive disorder, recurrent severe without psychotic features: Status: Acute Code(s): F33.2 - Major depressive disorder, recurrent severe without psychotic features (3) Swallowing dysfunction: Status: Acute Code(s): R13.10 - Dysphagia, unspecified Assessment and Plan: See specific swallowing plan Plan The patient is a 67-year-old male, , 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 At this moment also, he has problems of housing since he will not be able to go back to his regular assisted.? The patient has a long history of alcohol use disorder that he was not able to process or work on it.? Plan 1. Continue with the same treatment.? 2. We will work with the social media marketing analyst and DDS for a proper discharge planning.? 3. Continue with recommendations of Wound Care. 4. Increase Seroquel up to 150 mg po qhs. 10/30/22 restart lorazepam 1 hs prn insomnia norterip inc 100 hs level in 50 s monitor ekg 11/01 continue current tx plan 11/02/22- Bedside Swallow eval. s/p choking episode on 11/01. 2021 Increase Lexapro encourage CBT skills need supportive coaching patient increasingly hopeless helpless denies active self-harm check nortriptyline level 11/05/2022 Check nortriptyline level patient on Seroquel nortriptyline Lexapro.? Needs much reassurance and support the has difficulty interacting at times secondary to a hopelessness irritability passive SI.? Patient has having difficulty maintaining his posture in his chair unclear why this is happening for discuss safety issues with nursing will need OT and potentially Pt input? 11/06/2022 Patient depressed and anxious tried to review cognitive behavioral perspectives ways to emotionally manage current situational factors.? Patient has for an extended period of time had great deal of difficulty with any emotional a mental coping strategies.? Will and lorazepam p.r.n. 0.5 mg to help with anxiety trying get clarity from DTS regarding transition to assisted setting positive reinforcement for patient's efforts at physical conditioning becomes demoralized easily denies active self-harm 11/07 continue tx. 11/08 no changes, pt had unwitnessed fall and hit head, head CT negative 11/09 no changes 11/10 no changes 11/11 no changes 11/12/22 acute med w/u neg incentive spirometer cont medication cbt skills cont pt/ot 11/12 medical workout came back negative. No changes in current treatment 11/14/2022 Patient depressed withdrawn more fatigued 11/18/21 taper lexapro start effexor lower seroquel sec to fatigue 11/19/21 Seroquel lowered inc venlafax 11/21/21 Pt with swallowing problem motor dysfx lower gabapentin lower nortriptyline lower seroquel 11/22 continue tx. 11/23 continue tx. 11/24/2022 More alert with lowered gabapentin nortriptyline lorazepam lower Lamictal to 150 b.i.d. hope to improve patient's balance motor function and consideration swallowing dysfunction can try and taper down on Seroquel in case this is also a contributing factor 11/25/2022 Patient has been active with OT change to venlafaxine from Lexapro and lowering of nortriptyline seems show some improvement Discharge planning continues 11/26/2022 the patient reports worsening his mood being more depressed and anxious. We will discuss the case with Dr. Haskins. 11/27/2022 no changes on mental status, we will keep on the same treatment 11/29 continue current treatment plan 11/30 continue current treatment plan 12/02/2022 Effexor was increased to 112.5 mg Seroquel have been lower to 50 mg and Mirapex discontinued hope being this will improve physical functioning 12/03/2021 Continue Effexor 112 Seroquel 50 at bedtime patient's diet was able to be increased 12/04/2022 Increase Effexor to 150 mg continue physical therapy on the unit reviewed cognitive behavioral and positive supports Stop Seroquel will try benjamin s much reassurance and support 12/25/22 pt c/o constpation improved generally cont effexor d/c planning Reason for contiued inpatient stay Substantial Risk for: harm to self, inability to function and rapid decompensation Time Spent With Patient Time: Total time managing care of this patient today ____ minutes.
[2022-12-25] MEDS: ALPRAZolam 0.5 MG TABLET PO (21:48)
[2022-12-25] MEDS: Latanoprost 0.005 % Ophth Sol 2.5 ML DROPS 1 DROP EYE-BOTH (21:48)
[2022-12-25] MEDS: Lidocaine 5 % Ointment 35 GM 1 APPL TOPICAL (21:49)
[2022-12-25] MEDS: Nystatin Powder 15 GM BOTTLE 1 APPL TOPICAL (21:49)
[2022-12-25] MEDS: traZODone HCL 50 MG TABLET PO (23:54)
[2022-12-25] MEDS: hydrOXYzine HCL 50 MG TABLET PO (23:54)
[2022-12-26 06:00] VITALS: BP 122/68; PULSE 80; RESP 16; TEMP 37.1; O2SAT 98
[2022-12-26] MEDS: Omeprazole 20 MG CAPSULE.DR PO ×2 (06:07→16:43)
[2022-12-26] MEDS: Finasteride 5 MG TABLET PO (09:16)
[2022-12-26] MEDS: lisinopriL 20 MG TABLET PO (09:16)
[2022-12-26] MEDS: calcium polycarbophiL TABLET 1 TAB PO (09:16)
[2022-12-26] MEDS: lamoTRIgine 25 MG TABLET 50 MG PO ×2 (09:16→20:53)
[2022-12-26] MEDS: lamoTRIgine 100 MG TABLET PO ×2 (09:16→20:54)
[2022-12-26] MEDS: Tamsulosin HCL 0.4 MG CAPSULE PO (09:16)
[2022-12-26] MEDS: Gabapentin 300 MG CAPSULE PO ×3 (09:16→20:55)
[2022-12-26] MEDS: Naltrexone HCl 50 MG TABLET PO (09:16)
[2022-12-26] MEDS: Cholecalciferol (Vitamin D3) 10 MCG TABLET PO (09:17)
[2022-12-26] MEDS: Multivitamin TABLET 1 TAB PO (09:17)
[2022-12-26] MEDS: Venlafaxine HCl ER 150 MG CAP.ER.24H PO (09:17)
[2022-12-26] MEDS: amLODIPine Besylate 5 MG TABLET PO (11:54)
--- NOTE | 2022-12-26 12:20 | MHC.SL.SWA ---
Addendum entered and electronically signed by Maddy Harris MA, CCC-CRNP 01/02/23 14:26: D.S. Original Note: Speech Pathologist Impression: Oropharyngeal dysphagia Risk of Aspiration Due to: Neurological Condition Reduced Cognition Dysphasia Diet Status: Recommend Patient continue on Chopped/Advanced diet (NDD3) with individualized access to Cereal with milk, fruit salad cup, soft breads, cakes, muffins, sandwiches with ground textures (e.g. chicken or tuna salad). Continue with thin liquids, pills whole with puree or liquid, as preferred by patient. Provide ample liquid with pill administration. Liquid Consistency and Strategies for Safe Swallow: Liquid Intake Recommendation: Thin Liquid Intake Strategies: No Straws Double Swallow Solid Food Consistency: Dietary Recommendations: Chopped/Advanced (NDD3) Additional Modifications to Solid Foods: Cue patient to double swallow (dry swallow), particularly on sticky or harder to chew consistencies. Alternate liquids and solids. Oral Medication Intake: Whole with Liquid Please contact the pharmacy regarding appropriate crushable or liquid drug formulations that are available whenever modified delivery is recommended. Compensatory Strategies and Precautions to be Taken for Safe Swallow: Sitting Upright (90 deg) Double Swallow No Straw Small Bites and Sips Alternate Liquids/Solids Rate of Ingestion Change Avoid Specific Foods Supervision While Eating and Drinking for Safe Swallow: Total Supervision (1:1) Foods to Avoid: Hard to chew solids (e.g. solid pieces of meat), dry consistencies that break into pieces (e.g. cookies, crackers, chips, nuts), mixed solid consistencies that require ample chewing (e.g. green salads), rice. Swallowing Recommended Treatments: Compens. Strategy Educat. Recommendation for Speech: Inpatient Speech Therapy Comment: PLAN: Intake Recommendations: Route: PO Diet Grade: Mechanical Soft Liquid Consistencies: Thin Post-Study Functional Oral Intake Scale (FOIS): 5- Total oral intake of multiple consistencies requiring special preparation MBSS 11/21/22 revealed moderate oropharyngeal phase dysphagia, characterized by slowed and prolonged oral phase, increase in oral and pharyngeal residue with harder solids, and incomplete laryngeal vestibular closure with resultant penetration of thin liquid. Pt was able to reduce pharyngeal retention with multiple dry swallows followed by sips of liquid. No evidence of aspiration during this exam, however, presence of penetration puts pt at risk of aspiration. Recommend modified diet GROUND/MECHANICALLY ALTERED (NDD2) solids with THIN liquids and ASPIRATION PRECAUTIONS: -Continue total 1:1 supervision during PO intake, provide pt w/ cues as needed -Take small bites of food -Moisten food with sauces and gravies, ensuring sauces are mixed and blended in well with food -Chew food well -Avoid hard to chew solids, sticky textures, mixed consistencies, and foods that break up into small pieces (rice, popcorn, nuts) -Follow each bite with 2-3 additional dry swallow to promote pharyngeal clearance -After dry swallows, take sips of liquid to promote pharyngeal clearance -Take small, individual sips of liquid -Avoid taking consecutive sips -Avoid the use of straws -Follow sips with a throat clear then dry swallow -Maintain upright 90 degree position while eating and drinking and for at least 45 minutes afterwards -Ensure a rigorous daily oral care routine before first meal and after each subsequent meal -Crush pills in puree when possible (consult with pharmacy). If pill cannot be crushed, take additional sips of liquid after taking the pill to promote pharyngeal clearance. Take pills one at a time. Recommend continue ST intervention at bedside to provide further education RE: MBSS results, risks of aspiration, dietary textures, and recommended strategies. Recommend pt to continue monitoring his dysphagia. If there are any changes or worsening of symptoms, consult with hospitalist or PCP, at which point a re-evaluation may be indicated. Therapy Recommendations: Therapy will be continued Prognosis for Improvement: The prognosis for the patient to meet nutritional needs by mouth is fair-good based on degree of impairment. Diesel Powerplant Supervisor Goals: ? The patient will tolerate the least restrictive diet with a safe/efficient swallow to maintain adequate nutrition and hydration. ? The patient and/or family will participate in further education for swallowing goals. Short Term Goals: ? Diet - The patient will tolerate a mechanical soft diet with thin liquids without signs or symptoms of penetration/aspiration 100% of the time. - The patient will participate in therapeutic PO trials with the CRNP. ? Guidelines - The patient will comply with/recall the following guidelines/strategies 100% of the time with minimal cuing: Bolus Volume Change, Rate of Ingestion Change, Liquid Wash, Additional Swallow(s) per Bolus, Throat Clear, No Straws. ? Education - The patient, nurse will verbalize/demonstrate understanding of the results of this evaluation, the above recommendations, and the swallowing guidelines. Frequency/Duration: Date Range for Service Req: Timeline to reassess: Rack Puller Clinican/Clinical Fellow: Yes: Bridget Martinez M.A., CF-CRNP
--- NOTE | 2022-12-26 13:41 | HO.PSYCHPN ---
Subjective Subjective Date of Service: 12/26/22 Reason For Visit: Depression hopelessness irritability Subjective Notes: Conditional Voluntary Healthcare Proxy: No Guardianship: No Medical Problems Affecting Mental Status: No Interim History: Patient has been anxious and preoccupied continues to feel concerned regarding constipation Medication Compliance: No Review of Systems Severe constipation with abdominal discomfort Mental Status Exam Mental Status Exam Patient Appearance: Fatigued Patient Orientation: Person, Place, Time and Situation Level of Consciousness: Awake and Appropriate Patient Behavior: Appropriate Mood Description: Anxious and Apprehensive Affect Description: Constricted, Anxious and Apprehensive Ability to Follow Directions: Good Depressive Symptoms: Increased Anxiety and Increased Irritability Judgement and Insight: Patient ruminating on upcoming potential transition wants severe the see the house anxiety about transition Diagnostics Vital Signs (24Hr): Vital Signs - 24 hr 12/25/22 18:00 12/26/22 06:00 Temperature 97.2 F 98.8 F Pulse Rate 80 80 Respiratory Rate 18 16 Blood Pressure 126/64 122/68 Pulse Oximetry 98 98 Oxygen Delivery Method Room Air Room Air BMI result Body Mass Index 30.2 Labs 11/13/22 07:43 11/12/22 09:32 Labs: Laboratory Results - last 48 hr 12/25/22 12/25/22 09:10 15:20 COVID-19 ([facility]) Negative COVID-19 Clin Com See Note Influenza Type A (PCR) NEGATIVE Influenza Type B (PCR) NEGATIVE RSV RNA Qual (PCR) NEGATIVE SARS-CoV-2 RNA (RT-PCR) NEGATIVE Imaging Radiology Impressions: ITS Impressions Chest X-Ray 10/20/22 15:45 IMPRESSION: 1. Low lung volumes with bibasilar linear disc atelectasis versus scarring. 2. No airspace consolidation or effusion. Head CT 11/08/22 12:29 IMPRESSION: No acute intracranial hemorrhage or territorial infarction. Stable chronic postoperative changes with gliosis and encephalomalacia in the right frontal and right temporal lobes. Ex vacuo dilatation of the ventricles and diffuse parenchymal volume loss. Right-sided craniotomy changes. Chest X-Ray 11/12/22 10:32 IMPRESSION: Hypoexpanded lungs with bibasilar platelike atelectasis. Brain MRI 11/12/22 13:15 IMPRESSION: 1. No demonstrated acute intracranial abnormalities. 2. Chronic encephalomalacia of the right temporal, right frontal, and left occipital lobes. Small regions of chronic encephalomalacia in the parasagittal aspects of the bilateral parietal lobes. Moderate underlying microangiopathy and generalized cerebral volume loss. Chest X-Ray 11/14/22 15:52 IMPRESSION: Low lung volumes, bibasilar subsegmental atelectasis and slight elevation of the right hemidiaphragm similar to previous exam. Modified Barium Swallow 11/21/22 15:11 IMPRESSION: Laryngeal penetration on several occasions but no laryngeal aspiration. Mild retention of solid food in the valleculae which cleared with subsequent oral administration of water or thin barium. Correlate with speech therapy results. Medications Medications Current Medications Acetaminophen (Acetaminophen 325 Mg Tablet) 650 mg PO Q6H PRN PRN Reason: Headache/Pain Mild Scale (1-3) Last Admin: 12/25/22 17:58 Dose: 650 mg Al Hydroxide/Mg Hydroxide (Magnesium Hydrox/Alum Hydrox 30 Ml Oral.Susp) 30 ml PO Q6H PRN PRN Reason: Heartburn/Nausea Last Admin: 11/22/22 21:39 Dose: 30 ml Albuterol Sulfate (Albuterol Sulfate 90 Mcg 8 Gm Inhaler) 2 puff INHALE Q6H PRN PRN Reason: Wheezing Alprazolam (Alprazolam 0.5 Mg Tablet) 0.5 mg PO BEDTIME TAZ Alprazolam (Alprazolam 0.25 Mg Tablet) 0.25 mg PO Q4H PRN PRN Reason: anxiety Amlodipine Besylate (Amlodipine Besylate 5 Mg Tablet) 5 mg PO DAILY [facility]; Protocol Last Admin: 12/26/22 11:54 Dose: 5 mg Benzocaine (Throat Lozenge, Medicated Lozenge) 1 lozenge MUCOUS MEM Q2H PRN PRN Reason: Sore Throat Last Admin: 11/12/22 03:08 Dose: 1 lozenge Bisacodyl (Bisacodyl 10 Mg Supp.Rect) 10 mg SC DAILY PRN PRN Reason: Constipation Calcium Polycarbophil (Calcium Polycarbophil Tablet) 1 tab PO DAILY TAZ Last Admin: 12/26/22 09:16 Dose: 1 tab Docusate Sodium (Docusate Sodium 100 Mg Capsule) 100 mg PO DAILY PRN PRN Reason: constipation Last Admin: 12/13/22 01:31 Dose: 100 mg Finasteride (Finasteride 5 Mg Tablet) 5 mg PO DAILY [facility] Last Admin: 12/26/22 09:16 Dose: 5 mg Gabapentin (Gabapentin 300 Mg Capsule) 300 mg PO TID [facility] Last Admin: 12/26/22 09:16 Dose: 300 mg Guaifenesin/Dextromethorphan (Guaifenesin Dm 200/20/10 Ml 10 Ml Syrup) 10 ml PO Q4H PRN PRN Reason: Cough Last Admin: 11/20/22 05:31 Dose: 10 ml Hydroxyzine HCl (Hydroxyzine Hcl 50 Mg Tablet) 50 mg PO Q4H PRN PRN Reason: Anxiety Last Admin: 12/25/22 23:54 Dose: 50 mg Lamotrigine (Lamotrigine 25 Mg Tablet) 50 mg PO BID [facility] Last Admin: 12/26/22 09:16 Dose: 50 mg Lamotrigine (Lamotrigine 100 Mg Tablet) 100 mg PO BID [facility] Last Admin: 12/26/22 09:16 Dose: 100 mg Latanoprost (Latanoprost 0.005 % Ophth No 2.5 Ml Drops) 1 drop EYE-BOTH BEDTIME [facility] Last Admin: 12/25/22 21:48 Dose: 1 drop Lidocaine (Lidocaine 5 % Ointment 35 Gm) 1 appl TOPICAL QID [facility] Last Admin: 12/26/22 10:14 Dose: Not Given Lisinopril (Lisinopril 20 Mg Tablet) 20 mg PO DAILY [facility]; Protocol Last Admin: 12/26/22 09:16 Dose: 20 mg Magnesium Hydroxide (Milk Of Magnesia 30 Ml Oral.Susp) 30 ml PO DAILY PRN PRN Reason: Constipation Last Admin: 11/28/22 21:13 Dose: 30 ml Melatonin (Melatonin 3 Mg Tablet) 9 mg PO BEDTIME [facility] Last Admin: 12/25/22 21:30 Dose: 9 mg Multi-Ingred Cream/Lotion/Oil/Oint (Mineral Oil/Petrolatum,White 106 Gm Tube) 1 appl TOPICAL BID PRN; Protocol PRN Reason: dry skin Multivitamins/Vitamin C (Multivitamin Tablet) 1 tab PO DAILY [facility] Last Admin: 12/26/22 09:17 Dose: 1 tab Naltrexone HCl (Naltrexone Hcl 50 Mg Tablet) 50 mg PO DAILY [facility] Last Admin: 12/26/22 09:16 Dose: 50 mg Nortriptyline HCl (Nortriptyline Hcl 25 Mg Capsule) 50 mg PO BEDTIME [facility] Last Admin: 12/25/22 21:32 Dose: 50 mg Nystatin (Nystatin Powder 15 Gm Bottle) 1 appl TOPICAL BID [facility]; Protocol Stop: 01/05/23 23:59 Last Admin: 12/26/22 10:14 Dose: Not Given Olanzapine (Olanzapine 2.5 Mg Tablet) 2.5 mg PO BEDTIME [facility] Last Admin: 12/25/22 21:34 Dose: 2.5 mg Omeprazole (Omeprazole 20 Mg Capsule.Dr) 20 mg PO BID@0630,1630 [facility] Last Admin: 12/26/22 06:07 Dose: 20 mg Ondansetron HCl (Ondansetron Odt 4 Mg Tab.Rapdis) 4 mg TRANSLINGU Q6H PRN PRN Reason: Nausea and Vomiting Last Admin: 12/17/22 12:26 Dose: 4 mg Oxybutynin Chloride (Oxybutynin Chloride Er 5 Mg Tab.Er.24) 10 mg PO DAILY [facility] Last Admin: 12/26/22 09:16 Dose: 10 mg Polyethylene Glycol (Polyethylene Glycol 3350 17 Gm Powd.Pack) 17 gm PO DAILY@1600 [facility] Last Admin: 12/25/22 17:59 Dose: 17 gm Senna/Docusate Sodium (Sennosides/Docusate Sodium Tablet) 2 tab PO BEDTIME [facility] Last Admin: 12/25/22 21:33 Dose: 2 tab Tamsulosin HCl (Tamsulosin Hcl 0.4 Mg Capsule) 0.4 mg PO DAILY [facility] Last Admin: 12/26/22 09:16 Dose: 0.4 mg Trazodone HCl (Trazodone Hcl 100 Mg Tablet) 200 mg PO BEDTIME [facility] Last Admin: 12/25/22 21:32 Dose: 200 mg Trazodone HCl (Trazodone Hcl 50 Mg Tablet) 50 mg PO BEDTIME PRN PRN Reason: Insomnia Last Admin: 12/25/22 23:54 Dose: 50 mg Venlafaxine HCl (Venlafaxine Hcl Er 150 Mg Cap.Er.24h) 150 mg PO DAILY [facility] Last Admin: 12/26/22 09:17 Dose: 150 mg Vitamin D (Cholecalciferol (Vitamin D3) 10 Mcg Tablet) 10 mcg PO DAILY [facility] Last Admin: 12/26/22 09:17 Dose: 10 mcg Allergies Allergies Allergy/AdvReac Type Severity Reaction Status Date / Time fentanyl [FENTANYL] Allergy Intermediate unknown Verified 04/08/22 07:00 Assessment & Plan Assessment & Plan (1) Cognitive and neurobehavioral dysfunction following brain injury: Status: Acute Code(s): G31.89 - Other specified degenerative diseases of nervous system; F09 - Unspecified mental disorder due to known physiological condition; S06.9X9S - Unspecified intracranial injury with loss of consciousness of unspecified duration, sequela (2) Major depressive disorder, recurrent severe without psychotic features: Status: Acute Code(s): F33.2 - Major depressive disorder, recurrent severe without psychotic features (3) Swallowing dysfunction: Status: Acute Code(s): R13.10 - Dysphagia, unspecified Assessment and Plan: See specific swallowing plan Plan The patient is a 67-year-old male, , 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 At this moment also, he has problems of housing since he will not be able to go back to his regular nursing home.? The patient has a long history of alcohol use disorder that he was not able to process or work on it.? Plan 1. Continue with the same treatment.? 2. We will work with the social media specialist and DDS for a proper discharge planning.? 3. Continue with recommendations of Wound Care. 4. Increase Seroquel up to 150 mg po qhs. 10/30/22 restart lorazepam 1 hs prn insomnia norterip inc 100 hs level in 50 s monitor ekg 11/01 continue current tx plan 11/02/22- Bedside Swallow eval. s/p choking episode on 11/01. 2021 Increase Lexapro encourage CBT skills need supportive coaching patient increasingly hopeless helpless denies active self-harm check nortriptyline level 11/05/2022 Check nortriptyline level patient on Seroquel nortriptyline Lexapro.? Needs much reassurance and support the has difficulty interacting at times secondary to a hopelessness irritability passive SI.? Patient has having difficulty maintaining his posture in his chair unclear why this is happening for discuss safety issues with nursing will need OT and potentially Pt input? 11/06/2022 Patient depressed and anxious tried to review cognitive behavioral perspectives ways to emotionally manage current situational factors.? Patient has for an extended period of time had great deal of difficulty with any emotional a mental coping strategies.? Will and lorazepam p.r.n. 0.5 mg to help with anxiety trying get clarity from DTS regarding transition to nursing home setting positive reinforcement for patient's efforts at physical conditioning becomes demoralized easily denies active self-harm 11/07 continue tx. 11/08 no changes, pt had unwitnessed fall and hit head, head CT negative 11/09 no changes 11/10 no changes 11/11 no changes 11/12/22 acute med w/u neg incentive spirometer cont medication cbt skills cont pt/ot 11/12 medical workout came back negative. No changes in current treatment 11/14/2022 Patient depressed withdrawn more fatigued 11/18/21 taper lexapro start effexor lower seroquel sec to fatigue 11/19/21 Seroquel lowered inc venlafax 11/21/21 Pt with swallowing problem motor dysfx lower gabapentin lower nortriptyline lower seroquel 11/22 continue tx. 11/23 continue tx. 11/24/2022 More alert with lowered gabapentin nortriptyline lorazepam lower Lamictal to 150 b.i.d. hope to improve patient's balance motor function and consideration swallowing dysfunction can try and taper down on Seroquel in case this is also a contributing factor 11/25/2022 Patient has been active with OT change to venlafaxine from Lexapro and lowering of nortriptyline seems show some improvement Discharge planning continues 11/26/2022 the patient reports worsening his mood being more depressed and anxious. We will discuss the case with Dr. Haskins. 11/27/2022 no changes on mental status, we will keep on the same treatment 11/29 continue current treatment plan 11/30 continue current treatment plan 12/02/2022 Effexor was increased to 112.5 mg Seroquel have been lower to 50 mg and Mirapex discontinued hope being this will improve physical functioning 12/03/2021 Continue Effexor 112 Seroquel 50 at bedtime patient's diet was able to be increased 12/04/2022 Increase Effexor to 150 mg continue physical therapy on the unit reviewed cognitive behavioral and positive supports Stop Seroquel will try benjamin s much reassurance and support 12/25/22 pt c/o constpation improved generally cont effexor d/c planning 12/26/2022 Patient continues to have constipation probably contributed to by Effexor 150 mg nortriptyline will maintain dosing increase Justina Colace a 2 times a day Reason for contiued inpatient stay Substantial Risk for: harm to self, inability to function and rapid decompensation Time Spent With Patient Time: Total time managing care of this patient today ____ minutes.
[2022-12-26] MEDS: polyethylene glycoL 3350 17 GM POWD.PACK PO (16:43)
[2022-12-26] MEDS: Lidocaine 5 % Ointment 35 GM 1 APPL TOPICAL (16:44)
[2022-12-26] MEDS: ALPRAZolam 0.25 MG TABLET PO (16:58)
[2022-12-26 18:00] VITALS: BP 125/66; PULSE 70; RESP 18; TEMP 36.3; O2SAT 97
[2022-12-26] MEDS: Melatonin 3 MG TABLET 9 MG PO (20:52)
[2022-12-26] MEDS: traZODone HCL 100 MG TABLET 200 MG PO (20:53)
[2022-12-26] MEDS: OLANZapine 2.5 MG TABLET PO (20:53)
[2022-12-26] MEDS: ALPRAZolam 0.5 MG TABLET PO (20:54)
[2022-12-26] MEDS: Sennosides/Docusate Sodium TABLET 2 TAB PO (20:54)
[2022-12-26] MEDS: Nystatin Powder 15 GM BOTTLE 1 APPL TOPICAL (20:55)
[2022-12-26] MEDS: Nortriptyline HCl 25 MG CAPSULE 50 MG PO (20:55)
[2022-12-26] MEDS: Latanoprost 0.005 % Ophth Sol 2.5 ML DROPS 1 DROP EYE-BOTH (21:07)
[2022-12-27 06:00] VITALS: BP 164/75; PULSE 78; RESP 18; TEMP 36.1; O2SAT 97
[2022-12-27] MEDS: Omeprazole 20 MG CAPSULE.DR PO ×2 (06:02→14:49)
[2022-12-27] MEDS: Gabapentin 300 MG CAPSULE PO ×3 (09:17→21:48)
[2022-12-27] MEDS: Multivitamin TABLET 1 TAB PO (09:17)
[2022-12-27] MEDS: Tamsulosin HCL 0.4 MG CAPSULE PO (09:17)
[2022-12-27] MEDS: lisinopriL 20 MG TABLET PO (09:17)
[2022-12-27] MEDS: amLODIPine Besylate 5 MG TABLET PO (09:17)
[2022-12-27] MEDS: lamoTRIgine 25 MG TABLET 50 MG PO ×2 (09:20→21:48)
[2022-12-27] MEDS: Sennosides/Docusate Sodium TABLET 2 TAB PO ×2 (09:20→21:51)
[2022-12-27] MEDS: calcium polycarbophiL TABLET 1 TAB PO (09:20)
[2022-12-27] MEDS: Finasteride 5 MG TABLET PO (09:20)
[2022-12-27] MEDS: Cholecalciferol (Vitamin D3) 10 MCG TABLET PO (09:21)
[2022-12-27] MEDS: lamoTRIgine 100 MG TABLET PO ×2 (09:21→21:50)
[2022-12-27] MEDS: Naltrexone HCl 50 MG TABLET PO (09:21)
[2022-12-27] MEDS: Venlafaxine HCl ER 150 MG CAP.ER.24H PO (09:22)
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
[2022-12-27] MEDS: Acetaminophen 325 MG TABLET 650 MG PO (14:48)
[2022-12-27] MEDS: polyethylene glycoL 3350 17 GM POWD.PACK PO (14:48)
[2022-12-27] MEDS: ALPRAZolam 0.25 MG TABLET PO (14:49)
[2022-12-27 18:00] VITALS: BP 141/76; PULSE 73; RESP 20; TEMP 36.4; O2SAT 97
[2022-12-27] MEDS: ALPRAZolam 0.5 MG TABLET PO (21:49)
[2022-12-27] MEDS: Melatonin 3 MG TABLET 9 MG PO (21:50)
[2022-12-27] MEDS: Latanoprost 0.005 % Ophth Sol 2.5 ML DROPS 1 DROP EYE-BOTH (21:50)
[2022-12-27] MEDS: Lidocaine 5 % Ointment 35 GM 1 APPL TOPICAL (21:56)
[2022-12-27] MEDS: Nystatin Powder 15 GM BOTTLE 1 APPL TOPICAL (22:01)
[2022-12-28] MEDS: Omeprazole 20 MG CAPSULE.DR PO ×2 (06:27→16:50)
[2022-12-28 07:30] VITALS: BP 123/61; PULSE 73; RESP 16; TEMP 36.8; O2SAT 96
[2022-12-28] MEDS: amLODIPine Besylate 5 MG TABLET PO (09:16)
[2022-12-28] MEDS: Tamsulosin HCL 0.4 MG CAPSULE PO (09:17)
[2022-12-28] MEDS: Multivitamin TABLET 1 TAB PO (09:17)
[2022-12-28] MEDS: lisinopriL 20 MG TABLET PO (09:17)
[2022-12-28] MEDS: Naltrexone HCl 50 MG TABLET PO (09:17)
[2022-12-28] MEDS: Gabapentin 300 MG CAPSULE PO ×3 (09:17→21:07)
[2022-12-28] MEDS: Finasteride 5 MG TABLET PO (09:17)
[2022-12-28] MEDS: Cholecalciferol (Vitamin D3) 10 MCG TABLET PO (09:17)
[2022-12-28] MEDS: calcium polycarbophiL TABLET 1 TAB PO (09:17)
[2022-12-28] MEDS: lamoTRIgine 25 MG TABLET 50 MG PO ×2 (09:17→21:09)
[2022-12-28] MEDS: Sennosides/Docusate Sodium TABLET 2 TAB PO ×2 (09:18→21:07)
[2022-12-28] MEDS: Venlafaxine HCl ER 150 MG CAP.ER.24H PO (09:18)
[2022-12-28] MEDS: lamoTRIgine 100 MG TABLET PO ×2 (09:18→21:13)
--- NOTE | 2022-12-28 12:23 | P.PNPSI_ITS ---
Subjective Subjective Date of Service: 12/28/22 Reason For Visit: Depression hopelessness irritability Interim History: Patient has been anxious at times but improved; HHe is bright and social with peers; less irritable. Medication Compliance: Yes Side effects from medications: No Review of Systems Acute medical concerns: No Review of Systems Review of Systems Yes Unobtainable due to mental condition and Unobtainable due to mental status Mental Status Exam Mental Status Exam Narrative: Appearance: casually groomed, good hygiene, in NAD Behavior: cooperative Psychomotor: no agitation or retardation noted Speech: clear, some delayed in response, soft tone, spontaneous TP: tangential TC: no psychosis, feeling anxious Mood: anxious Affect: brighter, calmer than reported mood SI: denies HI: none Delusions: none Insight/judgment: fair x 2. Memory/cog: alert, oriented x 3. not formally tested. Patient Appearance: Fatigued Patient Orientation: Person, Place, Time and Situation Level of Consciousness: Awake and Appropriate Patient Behavior: Appropriate Behavior Comments: intermittently irritable, belligerent Mood Description: Anxious and Apprehensive Affect Description: Constricted, Anxious and Apprehensive Patient Cognition Impaired: Yes Ability to Follow Directions: Good Speech Pattern: Clear Memory Description: Episodic Impaired and Working Impaired Diagnostics Vital Signs (24Hr): Vital Signs - 24 hr 12/27/22 18:00 12/28/22 07:30 Temperature 97.6 F 98.2 F Pulse Rate 73 73 Respiratory Rate 20 16 Blood Pressure 141/76 H 123/61 Pulse Oximetry 97 96 Oxygen Delivery Method Room Air Room Air BMI result Body Mass Index 30.2 Labs 11/13/22 07:43 11/12/22 09:32 Imaging Radiology Impressions: ITS Impressions Chest X-Ray 10/20/22 15:45 IMPRESSION: 1. Low lung volumes with bibasilar linear disc atelectasis versus scarring. 2. No airspace consolidation or effusion. Head CT 11/08/22 12:29 IMPRESSION: No acute intracranial hemorrhage or territorial infarction. Stable chronic postoperative changes with gliosis and encephalomalacia in the right frontal and right temporal lobes. Ex vacuo dilatation of the ventricles and diffuse parenchymal volume loss. Right-sided craniotomy changes. Chest X-Ray 11/12/22 10:32 IMPRESSION: Hypoexpanded lungs with bibasilar platelike atelectasis. Brain MRI 11/12/22 13:15 IMPRESSION: 1. No demonstrated acute intracranial abnormalities. 2. Chronic encephalomalacia of the right temporal, right frontal, and left occipital lobes. Small regions of chronic encephalomalacia in the parasagittal aspects of the bilateral parietal lobes. Moderate underlying microangiopathy and generalized cerebral volume loss. Chest X-Ray 11/14/22 15:52 IMPRESSION: Low lung volumes, bibasilar subsegmental atelectasis and slight elevation of the right hemidiaphragm similar to previous exam. Modified Barium Swallow 11/21/22 15:11 IMPRESSION: Laryngeal penetration on several occasions but no laryngeal aspiration. Mild retention of solid food in the valleculae which cleared with subsequent oral administration of water or thin barium. Correlate with speech therapy results. Medications Medications Current Medications Acetaminophen (Acetaminophen 325 Mg Tablet) 650 mg PO Q6H PRN PRN Reason: Headache/Pain Mild Scale (1-3) Last Admin: 12/27/22 14:48 Dose: 650 mg Al Hydroxide/Mg Hydroxide (Magnesium Hydrox/Alum Hydrox 30 Ml Oral.Susp) 30 ml PO Q6H PRN PRN Reason: Heartburn/Nausea Last Admin: 11/22/22 21:39 Dose: 30 ml Albuterol Sulfate (Albuterol Sulfate 90 Mcg 8 Gm Inhaler) 2 puff INHALE Q6H PRN PRN Reason: Wheezing Alprazolam (Alprazolam 0.5 Mg Tablet) 0.5 mg PO BEDTIME TAZ Last Admin: 12/27/22 21:49 Dose: 0.5 mg Alprazolam (Alprazolam 0.25 Mg Tablet) 0.25 mg PO Q4H PRN PRN Reason: anxiety Last Admin: 12/27/22 14:49 Dose: 0.25 mg Amlodipine Besylate (Amlodipine Besylate 5 Mg Tablet) 5 mg PO DAILY [facility]; Protocol Last Admin: 12/28/22 09:16 Dose: 5 mg Benzocaine (Throat Lozenge, Medicated Lozenge) 1 lozenge MUCOUS MEM Q2H PRN PRN Reason: Sore Throat Last Admin: 11/12/22 03:08 Dose: 1 lozenge Bisacodyl (Bisacodyl 10 Mg Supp.Rect) 10 mg [place] DAILY PRN PRN Reason: Constipation Calcium Polycarbophil (Calcium Polycarbophil Tablet) 1 tab PO DAILY [facility] Last Admin: 12/28/22 09:17 Dose: 1 tab Docusate Sodium (Docusate Sodium 100 Mg Capsule) 100 mg PO DAILY PRN PRN Reason: constipation Last Admin: 12/13/22 01:31 Dose: 100 mg Finasteride (Finasteride 5 Mg Tablet) 5 mg PO DAILY [facility] Last Admin: 12/28/22 09:17 Dose: 5 mg Gabapentin (Gabapentin 300 Mg Capsule) 300 mg PO TID [facility] Last Admin: 12/28/22 09:17 Dose: 300 mg Guaifenesin/Dextromethorphan (Guaifenesin Dm 200/20/10 Ml 10 Ml Syrup) 10 ml PO Q4H PRN PRN Reason: Cough Last Admin: 11/20/22 05:31 Dose: 10 ml Hydroxyzine HCl (Hydroxyzine Hcl 50 Mg Tablet) 50 mg PO Q4H PRN PRN Reason: Anxiety Last Admin: 12/25/22 23:54 Dose: 50 mg Lamotrigine (Lamotrigine 25 Mg Tablet) 50 mg PO BID [facility] Last Admin: 12/28/22 09:17 Dose: 50 mg Lamotrigine (Lamotrigine 100 Mg Tablet) 100 mg PO BID [facility] Last Admin: 12/28/22 09:18 Dose: 100 mg Latanoprost (Latanoprost 0.005 % Ophth No 2.5 Ml Drops) 1 drop EYE-BOTH BEDTIME [facility] Last Admin: 12/27/22 21:50 Dose: 1 drop Lidocaine (Lidocaine 5 % Ointment 35 Gm) 1 appl TOPICAL QID [facility] Last Admin: 12/27/22 21:56 Dose: 1 appl Lisinopril (Lisinopril 20 Mg Tablet) 20 mg PO DAILY [facility]; Protocol Last Admin: 12/28/22 09:17 Dose: 20 mg Magnesium Hydroxide (Milk Of Magnesia 30 Ml Oral.Susp) 30 ml PO DAILY PRN PRN Reason: Constipation Last Admin: 11/28/22 21:13 Dose: 30 ml Melatonin (Melatonin 3 Mg Tablet) 9 mg PO BEDTIME [facility] Last Admin: 12/27/22 21:50 Dose: 9 mg Multi-Ingred Cream/Lotion/Oil/Oint (Mineral Oil/Petrolatum,White 106 Gm Tube) 1 appl TOPICAL BID PRN; Protocol PRN Reason: dry skin Multivitamins/Vitamin C (Multivitamin Tablet) 1 tab PO DAILY [facility] Last Admin: 12/28/22 09:17 Dose: 1 tab Naltrexone HCl (Naltrexone Hcl 50 Mg Tablet) 50 mg PO DAILY [facility] Last Admin: 12/28/22 09:17 Dose: 50 mg Nortriptyline HCl (Nortriptyline Hcl 25 Mg Capsule) 50 mg PO BEDTIME [facility] Last Admin: 12/26/22 20:55 Dose: 50 mg Nystatin (Nystatin Powder 15 Gm Bottle) 1 appl TOPICAL BID [facility]; Protocol Stop: 01/05/23 23:59 Last Admin: 12/27/22 22:01 Dose: 1 appl Olanzapine (Olanzapine 2.5 Mg Tablet) 2.5 mg PO BEDTIME [facility] Last Admin: 12/26/22 20:53 Dose: 2.5 mg Omeprazole (Omeprazole 20 Mg Capsule.Dr) 20 mg PO BID@0630,1630 [facility] Last Admin: 12/28/22 06:27 Dose: 20 mg Ondansetron HCl (Ondansetron Odt 4 Mg Tab.Rapdis) 4 mg TRANSLINGU Q6H PRN PRN Reason: Nausea and Vomiting Last Admin: 12/17/22 12:26 Dose: 4 mg Oxybutynin Chloride (Oxybutynin Chloride Er 5 Mg Tab.Er.24) 10 mg PO DAILY [facility] Last Admin: 12/28/22 09:17 Dose: 10 mg Polyethylene Glycol (Polyethylene Glycol 3350 17 Gm Powd.Pack) 17 gm PO DAILY@1600 [facility] Last Admin: 12/27/22 14:48 Dose: 17 gm Senna/Docusate Sodium (Sennosides/Docusate Sodium Tablet) 2 tab PO BID [facility] Last Admin: 12/28/22 09:18 Dose: 2 tab Sodium Biphosphate/Sodium Phosphate (Sodium Phosphate,[place]-Dibasic 133 Ml Enema) 133 ml [place] ONCE PRN PRN Reason: Constipation Tamsulosin HCl (Tamsulosin Hcl 0.4 Mg Capsule) 0.4 mg PO DAILY [facility] Last Admin: 12/28/22 09:17 Dose: 0.4 mg Trazodone HCl (Trazodone Hcl 100 Mg Tablet) 200 mg PO BEDTIME [facility] Last Admin: 12/26/22 20:53 Dose: 200 mg Trazodone HCl (Trazodone Hcl 50 Mg Tablet) 50 mg PO BEDTIME PRN PRN Reason: Insomnia Last Admin: 12/25/22 23:54 Dose: 50 mg Venlafaxine HCl (Venlafaxine Hcl Er 150 Mg Cap.Er.24h) 150 mg PO DAILY [facility] Last Admin: 12/28/22 09:18 Dose: 150 mg Vitamin D (Cholecalciferol (Vitamin D3) 10 Mcg Tablet) 10 mcg PO DAILY [facility] Last Admin: 12/28/22 09:17 Dose: 10 mcg Allergies Allergies Allergy/AdvReac Type Severity Reaction Status Date / Time fentanyl [FENTANYL] Allergy Intermediate unknown Verified 04/08/22 07:00 Assessment & Plan Assessment & Plan (1) Cognitive and neurobehavioral dysfunction following brain injury: Status: Acute Code(s): G31.89 - Other specified degenerative diseases of nervous system; F09 - Unspecified mental disorder due to known physiological condition; S06.9X9S - Unspecified intracranial injury with loss of consciousness of unspecified duration, sequela (2) Major depressive disorder, recurrent severe without psychotic features: Status: Acute Code(s): F33.2 - Major depressive disorder, recurrent severe without psychotic features (3) Swallowing dysfunction: Status: Acute Code(s): R13.10 - Dysphagia, unspecified Assessment and Plan: See specific swallowing plan Plan The patient is a 67-year-old male, , 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 The patient has a long history of alcohol use disorder that he was not able to process or work on it.? Plan: Continue with same treatment.? Reason for contiued inpatient stay Substantial Risk for: inability to function and med/psych decompensation Time Spent With Patient Time: Total time managing care of this patient today ____ minutes.
[2022-12-28] MEDS: hydrOXYzine HCL 50 MG TABLET PO (15:10)
[2022-12-28] MEDS: ALPRAZolam 0.25 MG TABLET PO (15:10)
[2022-12-28] MEDS: polyethylene glycoL 3350 17 GM POWD.PACK PO (15:10)
[2022-12-28 18:00] VITALS: BP 125/68; PULSE 71; RESP 16; TEMP 36.1; O2SAT 96
[2022-12-28] MEDS: OLANZapine 2.5 MG TABLET PO (21:08)
[2022-12-28] MEDS: Nortriptyline HCl 25 MG CAPSULE 50 MG PO (21:08)
[2022-12-28] MEDS: traZODone HCL 100 MG TABLET 200 MG PO (21:11)
[2022-12-28] MEDS: ALPRAZolam 0.5 MG TABLET PO (21:11)
[2022-12-28] MEDS: Latanoprost 0.005 % Ophth Sol 2.5 ML DROPS 1 DROP EYE-BOTH (21:15)
[2022-12-28] MEDS: Acetaminophen 325 MG TABLET 650 MG PO (21:21)
[2022-12-28] MEDS: Lidocaine 5 % Ointment 35 GM 1 APPL TOPICAL (21:32)
[2022-12-28] MEDS: Nystatin Powder 15 GM BOTTLE 1 APPL TOPICAL (21:32)
[2022-12-28] MEDS: Melatonin 3 MG TABLET 9 MG PO (21:33)
[2022-12-29] MEDS: Finasteride 5 MG TABLET PO (08:54)
[2022-12-29] MEDS: Gabapentin 300 MG CAPSULE PO ×3 (08:55→21:38)
[2022-12-29] MEDS: Sennosides/Docusate Sodium TABLET 2 TAB PO ×2 (08:55→21:37)
[2022-12-29] MEDS: Multivitamin TABLET 1 TAB PO (08:56)
[2022-12-29] MEDS: lamoTRIgine 25 MG TABLET 50 MG PO ×2 (08:56→21:39)
[2022-12-29] MEDS: Venlafaxine HCl ER 150 MG CAP.ER.24H PO (08:56)
[2022-12-29] MEDS: Cholecalciferol (Vitamin D3) 10 MCG TABLET PO (08:57)
[2022-12-29] MEDS: Omeprazole 20 MG CAPSULE.DR PO ×2 (08:57→15:24)
[2022-12-29] MEDS: calcium polycarbophiL TABLET 1 TAB PO (08:57)
[2022-12-29] MEDS: Naltrexone HCl 50 MG TABLET PO (08:57)
[2022-12-29] MEDS: Tamsulosin HCL 0.4 MG CAPSULE PO (08:57)
[2022-12-29] MEDS: amLODIPine Besylate 5 MG TABLET PO (08:58)
[2022-12-29] MEDS: lamoTRIgine 100 MG TABLET PO ×2 (08:58→21:39)
[2022-12-29] MEDS: lisinopriL 20 MG TABLET PO (08:58)
[2022-12-29 09:00] VITALS: BP 114/62; PULSE 100; RESP 18; TEMP 36; O2SAT 93
[2022-12-29] MEDS: ALPRAZolam 0.25 MG TABLET PO (15:24)
[2022-12-29] MEDS: Acetaminophen 325 MG TABLET 650 MG PO (15:24)
--- NOTE | 2022-12-29 16:27 | P.PNPSI_ITS ---
Subjective Subjective Date of Service: 12/29/22 Reason For Visit: Depression hopelessness irritability Subjective Notes: Conditional Voluntary Healthcare Proxy: No Guardianship: No Interim History: pt triggered by another pt on the unit gets reactive feels overwhelmed Medication Compliance: Yes Mental Status Exam Mental Status Exam Patient Orientation: Person, Place, Time and Situation Level of Consciousness: Awake Patient Behavior: Appropriate Mood Description: Constricted, Anxious and Angry Affect Description: Fearful and Labile Ability to Follow Directions: Good Speech Pattern: Perseverating Hallucinations: None Thought Content: positive for Suicidal Ideation and negative for Homicidal Ideation Depressive Symptoms: Increased Anxiety Judgement: Fair Judgement and Insight: Patient triggered by another patient on the unit feels threatened agitated upset does not like how reactive he gets Diagnostics Vital Signs (24Hr): Vital Signs - 24 hr 12/28/22 18:00 12/29/22 09:00 Temperature 96.9 F 96.8 F Pulse Rate 71 100 Respiratory Rate 16 18 Blood Pressure 125/68 114/62 Pulse Oximetry 96 93 Oxygen Delivery Method Room Air Room Air BMI result Body Mass Index 30.2 Labs 11/13/22 07:43 11/12/22 09:32 Imaging Radiology Impressions: ITS Impressions Chest X-Ray 10/20/22 15:45 IMPRESSION: 1. Low lung volumes with bibasilar linear disc atelectasis versus scarring. 2. No airspace consolidation or effusion. Head CT 11/08/22 12:29 IMPRESSION: No acute intracranial hemorrhage or territorial infarction. Stable chronic postoperative changes with gliosis and encephalomalacia in the right frontal and right temporal lobes. Ex vacuo dilatation of the ventricles and diffuse parenchymal volume loss. Right-sided craniotomy changes. Chest X-Ray 11/12/22 10:32 IMPRESSION: Hypoexpanded lungs with bibasilar platelike atelectasis. Brain MRI 11/12/22 13:15 IMPRESSION: 1. No demonstrated acute intracranial abnormalities. 2. Chronic encephalomalacia of the right temporal, right frontal, and left occipital lobes. Small regions of chronic encephalomalacia in the parasagittal aspects of the bilateral parietal lobes. Moderate underlying microangiopathy and generalized cerebral volume loss. Chest X-Ray 11/14/22 15:52 IMPRESSION: Low lung volumes, bibasilar subsegmental atelectasis and slight elevation of the right hemidiaphragm similar to previous exam. Modified Barium Swallow 11/21/22 15:11 IMPRESSION: Laryngeal penetration on several occasions but no laryngeal aspiration. Mild retention of solid food in the valleculae which cleared with subsequent oral administration of water or thin barium. Correlate with speech therapy results. Medications Medications Current Medications Acetaminophen (Acetaminophen 325 Mg Tablet) 650 mg PO Q6H PRN PRN Reason: Headache/Pain Mild Scale (1-3) Last Admin: 12/29/22 15:24 Dose: 650 mg Al Hydroxide/Mg Hydroxide (Magnesium Hydrox/Alum Hydrox 30 Ml Oral.Susp) 30 ml PO Q6H PRN PRN Reason: Heartburn/Nausea Last Admin: 11/22/22 21:39 Dose: 30 ml Albuterol Sulfate (Albuterol Sulfate 90 Mcg 8 Gm Inhaler) 2 puff INHALE Q6H PRN PRN Reason: Wheezing Alprazolam (Alprazolam 0.5 Mg Tablet) 0.5 mg PO BEDTIME TAZ Last Admin: 12/28/22 21:11 Dose: 0.5 mg Alprazolam (Alprazolam 0.25 Mg Tablet) 0.25 mg PO Q4H PRN PRN Reason: anxiety Last Admin: 12/29/22 15:24 Dose: 0.25 mg Amlodipine Besylate (Amlodipine Besylate 5 Mg Tablet) 5 mg PO DAILY [facility]; Protocol Last Admin: 12/29/22 08:58 Dose: 5 mg Benzocaine (Throat Lozenge, Medicated Lozenge) 1 lozenge MUCOUS MEM Q2H PRN PRN Reason: Sore Throat Last Admin: 11/12/22 03:08 Dose: 1 lozenge Bisacodyl (Bisacodyl 10 Mg Supp.Rect) 10 mg [place] DAILY PRN PRN Reason: Constipation Calcium Polycarbophil (Calcium Polycarbophil Tablet) 1 tab PO DAILY [facility] Last Admin: 12/29/22 08:57 Dose: 1 tab Docusate Sodium (Docusate Sodium 100 Mg Capsule) 100 mg PO DAILY PRN PRN Reason: constipation Last Admin: 12/13/22 01:31 Dose: 100 mg Finasteride (Finasteride 5 Mg Tablet) 5 mg PO DAILY [facility] Last Admin: 12/29/22 08:54 Dose: 5 mg Gabapentin (Gabapentin 300 Mg Capsule) 300 mg PO TID TAZ Last Admin: 12/29/22 15:24 Dose: 300 mg Guaifenesin/Dextromethorphan (Guaifenesin Dm 200/20/10 Ml 10 Ml Syrup) 10 ml PO Q4H PRN PRN Reason: Cough Last Admin: 11/20/22 05:31 Dose: 10 ml Hydroxyzine HCl (Hydroxyzine Hcl 50 Mg Tablet) 50 mg PO Q4H PRN PRN Reason: Anxiety Last Admin: 12/28/22 15:10 Dose: 50 mg Lamotrigine (Lamotrigine 25 Mg Tablet) 50 mg PO BID [facility] Last Admin: 12/29/22 08:56 Dose: 50 mg Lamotrigine (Lamotrigine 100 Mg Tablet) 100 mg PO BID [facility] Last Admin: 12/29/22 08:58 Dose: 100 mg Latanoprost (Latanoprost 0.005 % Ophth No 2.5 Ml Drops) 1 drop EYE-BOTH BEDTIME [facility] Last Admin: 12/28/22 21:15 Dose: 1 drop Lidocaine (Lidocaine 5 % Ointment 35 Gm) 1 appl TOPICAL QID [facility] Last Admin: 12/29/22 15:24 Dose: Not Given Lisinopril (Lisinopril 20 Mg Tablet) 20 mg PO DAILY [facility]; Protocol Last Admin: 12/29/22 08:58 Dose: 20 mg Magnesium Hydroxide (Milk Of Magnesia 30 Ml Oral.Susp) 30 ml PO DAILY PRN PRN Reason: Constipation Last Admin: 11/28/22 21:13 Dose: 30 ml Melatonin (Melatonin 3 Mg Tablet) 9 mg PO BEDTIME [facility] Last Admin: 12/28/22 21:33 Dose: 9 mg Multi-Ingred Cream/Lotion/Oil/Oint (Mineral Oil/Petrolatum,White 106 Gm Tube) 1 appl TOPICAL BID PRN; Protocol PRN Reason: dry skin Multivitamins/Vitamin C (Multivitamin Tablet) 1 tab PO DAILY [facility] Last Admin: 12/29/22 08:56 Dose: 1 tab Naltrexone HCl (Naltrexone Hcl 50 Mg Tablet) 50 mg PO DAILY [facility] Last Admin: 12/29/22 08:57 Dose: 50 mg Nortriptyline HCl (Nortriptyline Hcl 25 Mg Capsule) 50 mg PO BEDTIME [facility] Last Admin: 12/28/22 21:08 Dose: 50 mg Nystatin (Nystatin Powder 15 Gm Bottle) 1 appl TOPICAL BID [facility]; Protocol Stop: 01/05/23 23:59 Last Admin: 12/29/22 10:31 Dose: Not Given Olanzapine (Olanzapine 2.5 Mg Tablet) 2.5 mg PO BEDTIME [facility] Last Admin: 12/28/22 21:08 Dose: 2.5 mg Omeprazole (Omeprazole 20 Mg Capsule.Dr) 20 mg PO BID@0630,1630 [facility] Last Admin: 12/29/22 15:24 Dose: 20 mg Ondansetron HCl (Ondansetron Odt 4 Mg Tab.Rapdis) 4 mg TRANSLINGU Q6H PRN PRN Reason: Nausea and Vomiting Last Admin: 12/17/22 12:26 Dose: 4 mg Oxybutynin Chloride (Oxybutynin Chloride Er 5 Mg Tab.Er.24) 10 mg PO DAILY [facility] Last Admin: 12/29/22 08:56 Dose: 10 mg Polyethylene Glycol (Polyethylene Glycol 3350 17 Gm Powd.Pack) 17 gm PO DAILY@1600 [facility] Last Admin: 12/29/22 15:32 Dose: Not Given Senna/Docusate Sodium (Sennosides/Docusate Sodium Tablet) 2 tab PO BID [facility] Last Admin: 12/29/22 08:55 Dose: 2 tab Sodium Biphosphate/Sodium Phosphate (Sodium Phosphate,[place]-Dibasic 133 Ml Enema) 133 ml LA ONCE PRN PRN Reason: Constipation Tamsulosin HCl (Tamsulosin Hcl 0.4 Mg Capsule) 0.4 mg PO DAILY [facility] Last Admin: 12/29/22 08:57 Dose: 0.4 mg Trazodone HCl (Trazodone Hcl 100 Mg Tablet) 200 mg PO BEDTIME [facility] Last Admin: 12/28/22 21:11 Dose: 200 mg Trazodone HCl (Trazodone Hcl 50 Mg Tablet) 50 mg PO BEDTIME PRN PRN Reason: Insomnia Last Admin: 12/25/22 23:54 Dose: 50 mg Venlafaxine HCl (Venlafaxine Hcl Er 150 Mg Cap.Er.24h) 150 mg PO DAILY [facility] Last Admin: 12/29/22 08:56 Dose: 150 mg Vitamin D (Cholecalciferol (Vitamin D3) 10 Mcg Tablet) 10 mcg PO DAILY [facility] Last Admin: 12/29/22 08:57 Dose: 10 mcg Allergies Allergies Allergy/AdvReac Type Severity Reaction Status Date / Time fentanyl [FENTANYL] Allergy Intermediate unknown Verified 04/08/22 07:00 Assessment & Plan Assessment & Plan (1) Cognitive and neurobehavioral dysfunction following brain injury: Status: Acute Code(s): G31.89 - Other specified degenerative diseases of nervous system; F09 - Unspecified mental disorder due to known physiological condition; S06.9X9S - Unspecified intracranial injury with loss of consciousness of unspecified duration, sequela (2) Major depressive disorder, recurrent severe without psychotic features: Status: Acute Code(s): F33.2 - Major depressive disorder, recurrent severe without psychotic features (3) Swallowing dysfunction: Status: Acute Code(s): R13.10 - Dysphagia, unspecified Plan Add dose of olanzapine during the day and alprazolam to decrease irritability reactivity monitor for over sedation continue discharge planning Patient educated on: medication risk/benefits and therapeutic strategies Informed Consent: understands Reason for contiued inpatient stay Substantial Risk for: harm to self, harm to others and rapid decompensation Time Spent With Patient Time: Total time managing care of this patient today _35___ minutes.
[2022-12-29 18:00] VITALS: BP 149/65; PULSE 80; RESP 16; TEMP 36.2; O2SAT 95
[2022-12-29] MEDS: traZODone HCL 100 MG TABLET 200 MG PO (21:37)
[2022-12-29] MEDS: Nortriptyline HCl 25 MG CAPSULE 50 MG PO (21:38)
[2022-12-29] MEDS: OLANZapine 2.5 MG TABLET PO (21:40)
[2022-12-29] MEDS: ALPRAZolam 0.5 MG TABLET PO (21:40)
[2022-12-29] MEDS: Nystatin Powder 15 GM BOTTLE 1 APPL TOPICAL (21:44)
[2022-12-29] MEDS: Lidocaine 5 % Ointment 35 GM 1 APPL TOPICAL (21:44)
[2022-12-29] MEDS: Melatonin 3 MG TABLET 9 MG PO (21:45)
[2022-12-29] MEDS: Latanoprost 0.005 % Ophth Sol 2.5 ML DROPS 1 DROP EYE-BOTH (21:47)
[2022-12-30 08:15] VITALS: BP 129/69; PULSE 72; RESP 15; TEMP 36.7; O2SAT 95
[2022-12-30] MEDS: Omeprazole 20 MG CAPSULE.DR PO ×2 (10:48→15:32)
[2022-12-30] MEDS: Multivitamin TABLET 1 TAB PO (10:49)
[2022-12-30] MEDS: lisinopriL 20 MG TABLET PO (10:50)
[2022-12-30] MEDS: Finasteride 5 MG TABLET PO (10:50)
[2022-12-30] MEDS: Venlafaxine HCl ER 150 MG CAP.ER.24H PO (10:51)
[2022-12-30] MEDS: Tamsulosin HCL 0.4 MG CAPSULE PO (10:52)
[2022-12-30] MEDS: lamoTRIgine 25 MG TABLET 50 MG PO ×2 (10:53→21:43)
[2022-12-30] MEDS: Cholecalciferol (Vitamin D3) 10 MCG TABLET PO (10:54)
[2022-12-30] MEDS: calcium polycarbophiL TABLET 1 TAB PO (10:54)
[2022-12-30] MEDS: Gabapentin 300 MG CAPSULE PO ×3 (10:54→21:42)
[2022-12-30] MEDS: Sennosides/Docusate Sodium TABLET 2 TAB PO (10:55)
[2022-12-30] MEDS: amLODIPine Besylate 5 MG TABLET PO (10:55)
[2022-12-30] MEDS: lamoTRIgine 100 MG TABLET PO ×2 (10:59→21:43)
[2022-12-30] MEDS: Naltrexone HCl 50 MG TABLET PO (11:00)
[2022-12-30] MEDS: Acetaminophen 325 MG TABLET 650 MG PO (14:06)
[2022-12-30] MEDS: ALPRAZolam 0.25 MG TABLET PO (14:06)
[2022-12-30] MEDS: OLANZapine 2.5 MG TABLET PO ×2 (15:32→21:43)
--- NOTE | 2022-12-30 17:22 | MHC.SLORD ---
Speech Language Pathology Order Status: Attempted to see patient today during lunch, per RN patient was in room, uncertain if he would come out in a timely way for lunch. 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 Will continue to follow.
[2022-12-30 18:00] VITALS: BP 130/75; PULSE 89; RESP 16; TEMP 36.4; O2SAT 95
--- NOTE | 2022-12-30 21:34 | P.PNPSI_ITS ---
Subjective Subjective Date of Service: 12/30/22 Reason For Visit: Depression hopelessness irritability Subjective Notes: Conditional Voluntary Healthcare Proxy: No Guardianship: No Interim History: Patient remains somewhat anxious and reactive feeling triggered by another patient on the unit . Medication Compliance: Yes Mental Status Exam Mental Status Exam Patient Orientation: Person, Place, Time and Situation Level of Consciousness: Awake Patient Behavior: Appropriate Mood Description: Constricted, Anxious and Angry Affect Description: Fearful and Labile Ability to Follow Directions: Good Speech Pattern: Perseverating Hallucinations: None Thought Content: positive for Suicidal Ideation and negative for Homicidal Ideation Depressive Symptoms: Increased Anxiety Judgement: Fair Judgement and Insight: Patient triggered by another patient on the unit feels threatened agitated upset does not like how reactive he gets Diagnostics Vital Signs (24Hr): Vital Signs - 24 hr 12/30/22 08:15 Temperature 98.1 F Pulse Rate 72 Respiratory Rate 15 Blood Pressure 129/69 Pulse Oximetry 95 Oxygen Delivery Method Room Air BMI result Body Mass Index 30.2 Labs 11/13/22 07:43 11/12/22 09:32 Imaging Radiology Impressions: ITS Impressions Chest X-Ray 10/20/22 15:45 IMPRESSION: 1. Low lung volumes with bibasilar linear disc atelectasis versus scarring. 2. No airspace consolidation or effusion. Head CT 11/08/22 12:29 IMPRESSION: No acute intracranial hemorrhage or territorial infarction. Stable chronic postoperative changes with gliosis and encephalomalacia in the right frontal and right temporal lobes. Ex vacuo dilatation of the ventricles and diffuse parenchymal volume loss. Right-sided craniotomy changes. Chest X-Ray 11/12/22 10:32 IMPRESSION: Hypoexpanded lungs with bibasilar platelike atelectasis. Brain MRI 11/12/22 13:15 IMPRESSION: 1. No demonstrated acute intracranial abnormalities. 2. Chronic encephalomalacia of the right temporal, right frontal, and left occipital lobes. Small regions of chronic encephalomalacia in the parasagittal aspects of the bilateral parietal lobes. Moderate underlying microangiopathy and generalized cerebral volume loss. Chest X-Ray 11/14/22 15:52 IMPRESSION: Low lung volumes, bibasilar subsegmental atelectasis and slight elevation of the right hemidiaphragm similar to previous exam. Modified Barium Swallow 11/21/22 15:11 IMPRESSION: Laryngeal penetration on several occasions but no laryngeal aspiration. Mild retention of solid food in the valleculae which cleared with subsequent oral administration of water or thin barium. Correlate with speech therapy results. Medications Medications Current Medications Acetaminophen (Acetaminophen 325 Mg Tablet) 650 mg PO Q6H PRN PRN Reason: Headache/Pain Mild Scale (1-3) Last Admin: 12/30/22 14:06 Dose: 650 mg Al Hydroxide/Mg Hydroxide (Magnesium Hydrox/Alum Hydrox 30 Ml Oral.Susp) 30 ml PO Q6H PRN PRN Reason: Heartburn/Nausea Last Admin: 11/22/22 21:39 Dose: 30 ml Albuterol Sulfate (Albuterol Sulfate 90 Mcg 8 Gm Inhaler) 2 puff INHALE Q6H PRN PRN Reason: Wheezing Alprazolam (Alprazolam 0.5 Mg Tablet) 0.5 mg PO BEDTIME [facility] Last Admin: 12/29/22 21:40 Dose: 0.5 mg Alprazolam (Alprazolam 0.25 Mg Tablet) 0.25 mg PO Q4H PRN PRN Reason: anxiety Last Admin: 12/30/22 14:06 Dose: 0.25 mg Amlodipine Besylate (Amlodipine Besylate 5 Mg Tablet) 5 mg PO DAILY [facility]; Protocol Last Admin: 12/30/22 10:55 Dose: 5 mg Benzocaine (Throat Lozenge, Medicated Lozenge) 1 lozenge MUCOUS MEM Q2H PRN PRN Reason: Sore Throat Last Admin: 11/12/22 03:08 Dose: 1 lozenge Bisacodyl (Bisacodyl 10 Mg Supp.Rect) 10 mg [place] DAILY PRN PRN Reason: Constipation Calcium Polycarbophil (Calcium Polycarbophil Tablet) 1 tab PO DAILY [facility] Last Admin: 12/30/22 10:54 Dose: 1 tab Docusate Sodium (Docusate Sodium 100 Mg Capsule) 100 mg PO DAILY PRN PRN Reason: constipation Last Admin: 12/13/22 01:31 Dose: 100 mg Finasteride (Finasteride 5 Mg Tablet) 5 mg PO DAILY [facility] Last Admin: 12/30/22 10:50 Dose: 5 mg Gabapentin (Gabapentin 300 Mg Capsule) 300 mg PO TID [facility] Last Admin: 12/30/22 15:32 Dose: 300 mg Guaifenesin/Dextromethorphan (Guaifenesin Dm 200/20/10 Ml 10 Ml Syrup) 10 ml PO Q4H PRN PRN Reason: Cough Last Admin: 11/20/22 05:31 Dose: 10 ml Hydroxyzine HCl (Hydroxyzine Hcl 50 Mg Tablet) 50 mg PO Q4H PRN PRN Reason: Anxiety Last Admin: 12/28/22 15:10 Dose: 50 mg Lamotrigine (Lamotrigine 25 Mg Tablet) 50 mg PO BID [facility] Last Admin: 12/30/22 10:53 Dose: 50 mg Lamotrigine (Lamotrigine 100 Mg Tablet) 100 mg PO BID [facility] Last Admin: 12/30/22 10:59 Dose: 100 mg Latanoprost (Latanoprost 0.005 % Ophth No 2.5 Ml Drops) 1 drop EYE-BOTH BEDTIME [facility] Last Admin: 12/29/22 21:47 Dose: 1 drop Lidocaine (Lidocaine 5 % Ointment 35 Gm) 1 appl TOPICAL QID [facility] Last Admin: 12/30/22 19:33 Dose: Not Given Lisinopril (Lisinopril 20 Mg Tablet) 20 mg PO DAILY [facility]; Protocol Last Admin: 12/30/22 10:50 Dose: 20 mg Magnesium Hydroxide (Milk Of Magnesia 30 Ml Oral.Susp) 30 ml PO DAILY PRN PRN Reason: Constipation Last Admin: 11/28/22 21:13 Dose: 30 ml Melatonin (Melatonin 3 Mg Tablet) 9 mg PO BEDTIME [facility] Last Admin: 12/29/22 21:45 Dose: 9 mg Multi-Ingred Cream/Lotion/Oil/Oint (Mineral Oil/Petrolatum,White 106 Gm Tube) 1 appl TOPICAL BID PRN; Protocol PRN Reason: dry skin Multivitamins/Vitamin C (Multivitamin Tablet) 1 tab PO DAILY [facility] Last Admin: 12/30/22 10:49 Dose: 1 tab Naltrexone HCl (Naltrexone Hcl 50 Mg Tablet) 50 mg PO DAILY [facility] Last Admin: 12/30/22 11:00 Dose: 50 mg Nortriptyline HCl (Nortriptyline Hcl 25 Mg Capsule) 50 mg PO BEDTIME [facility] Last Admin: 12/29/22 21:38 Dose: 50 mg Nystatin (Nystatin Powder 15 Gm Bottle) 1 appl TOPICAL BID [facility]; Protocol Stop: 01/05/23 23:59 Last Admin: 12/30/22 13:29 Dose: Not Given Olanzapine (Olanzapine 2.5 Mg Tablet) 2.5 mg PO BEDTIME [facility] Last Admin: 12/29/22 21:40 Dose: 2.5 mg Olanzapine (Olanzapine 2.5 Mg Tablet) 2.5 mg PO DAILY@1500 [facility] Last Admin: 12/30/22 15:32 Dose: 2.5 mg Omeprazole (Omeprazole 20 Mg Capsule.Dr) 20 mg PO BID@0630,1630 [facility] Last Admin: 12/30/22 15:32 Dose: 20 mg Ondansetron HCl (Ondansetron Odt 4 Mg Tab.Rapdis) 4 mg TRANSLINGU Q6H PRN PRN Reason: Nausea and Vomiting Last Admin: 12/17/22 12:26 Dose: 4 mg Oxybutynin Chloride (Oxybutynin Chloride Er 5 Mg Tab.Er.24) 10 mg PO DAILY [facility] Last Admin: 12/30/22 10:51 Dose: 10 mg Polyethylene Glycol (Polyethylene Glycol 3350 17 Gm Powd.Pack) 17 gm PO DAILY@1600 [facility] Last Admin: 12/30/22 15:34 Dose: Not Given Senna/Docusate Sodium (Sennosides/Docusate Sodium Tablet) 2 tab PO BID [facility] Last Admin: 12/30/22 10:55 Dose: 2 tab Sodium Biphosphate/Sodium Phosphate (Sodium Phosphate,[place]-Dibasic 133 Ml Enema) 133 ml [place] ONCE PRN PRN Reason: Constipation Tamsulosin HCl (Tamsulosin Hcl 0.4 Mg Capsule) 0.4 mg PO DAILY [facility] Last Admin: 12/30/22 10:52 Dose: 0.4 mg Trazodone HCl (Trazodone Hcl 100 Mg Tablet) 200 mg PO BEDTIME [facility] Last Admin: 12/29/22 21:37 Dose: 200 mg Trazodone HCl (Trazodone Hcl 50 Mg Tablet) 50 mg PO BEDTIME PRN PRN Reason: Insomnia Last Admin: 12/25/22 23:54 Dose: 50 mg Venlafaxine HCl (Venlafaxine Hcl Er 150 Mg Cap.Er.24h) 150 mg PO DAILY [facility] Last Admin: 12/30/22 10:51 Dose: 150 mg Vitamin D (Cholecalciferol (Vitamin D3) 10 Mcg Tablet) 10 mcg PO DAILY [facility] Last Admin: 12/30/22 10:54 Dose: 10 mcg Allergies Allergies Allergy/AdvReac Type Severity Reaction Status Date / Time fentanyl [FENTANYL] Allergy Intermediate unknown Verified 04/08/22 07:00 Assessment & Plan Assessment & Plan (1) Cognitive and neurobehavioral dysfunction following brain injury: Status: Acute Code(s): G31.89 - Other specified degenerative diseases of nervous system; F09 - Unspecified mental disorder due to known physiological condition; S06.9X9S - Unspecified intracranial injury with loss of consciousness of unspecified duration, sequela (2) Major depressive disorder, recurrent severe without psychotic features: Status: Acute Code(s): F33.2 - Major depressive disorder, recurrent severe without psychotic features (3) Swallowing dysfunction: Status: Acute Code(s): R13.10 - Dysphagia, unspecified Plan Patient seems less labile with olanzapine during the day and alprazolam to decrease irritability reactivity monitor for over sedation continue discharge planning Encourage daily strength training Patient educated on: medication risk/benefits and therapeutic strategies Informed Consent: understands Reason for contiued inpatient stay Substantial Risk for: inability to function and rapid decompensation Time Spent With Patient Time: Total time managing care of this patient today _30___ minutes.
[2022-12-30] MEDS: Nortriptyline HCl 25 MG CAPSULE 50 MG PO (21:43)
[2022-12-30] MEDS: ALPRAZolam 0.5 MG TABLET PO (21:43)
[2022-12-30] MEDS: traZODone HCL 100 MG TABLET 200 MG PO (21:43)
[2022-12-30] MEDS: Melatonin 3 MG TABLET 9 MG PO (21:44)
[2022-12-30] MEDS: Latanoprost 0.005 % Ophth Sol 2.5 ML DROPS 1 DROP EYE-BOTH (21:48)
[2022-12-31 07:30] VITALS: BP 114/53; PULSE 73; RESP 18; TEMP 36.2; O2SAT 97
[2022-12-31] MEDS: Tamsulosin HCL 0.4 MG CAPSULE PO (10:33)
[2022-12-31] MEDS: Omeprazole 20 MG CAPSULE.DR PO ×2 (10:33→15:39)
[2022-12-31] MEDS: Gabapentin 300 MG CAPSULE PO ×3 (10:33→21:34)
[2022-12-31] MEDS: amLODIPine Besylate 5 MG TABLET PO (10:33)
[2022-12-31] MEDS: Finasteride 5 MG TABLET PO (10:34)
[2022-12-31] MEDS: Multivitamin TABLET 1 TAB PO (10:34)
[2022-12-31] MEDS: lisinopriL 20 MG TABLET PO (10:34)
[2022-12-31] MEDS: Naltrexone HCl 50 MG TABLET PO (10:34)
[2022-12-31] MEDS: Venlafaxine HCl ER 150 MG CAP.ER.24H PO (10:34)
[2022-12-31] MEDS: lamoTRIgine 100 MG TABLET PO ×2 (10:34→21:35)
[2022-12-31] MEDS: calcium polycarbophiL TABLET 1 TAB PO (10:34)
[2022-12-31] MEDS: Cholecalciferol (Vitamin D3) 10 MCG TABLET PO (10:35)
[2022-12-31] MEDS: lamoTRIgine 25 MG TABLET 50 MG PO ×2 (10:35→21:35)
--- NOTE | 2022-12-31 13:46 | PC.NURSE ---
This show card writer returned a 0.25 Xanax in the Pyxis, to this account by mistake.
[2022-12-31] MEDS: Acetaminophen 325 MG TABLET 650 MG PO (13:54)
[2022-12-31] MEDS: OLANZapine 2.5 MG TABLET PO (14:56)
[2022-12-31 18:00] VITALS: BP 130/62; PULSE 78; RESP 18; TEMP 36.2; O2SAT 97
--- NOTE | 2022-12-31 20:54 | P.PNPSI_ITS ---
Subjective Subjective Date of Service: 12/31/22 Reason For Visit: Depression hopelessness irritability Subjective Notes: Conditional Voluntary Interim History: The patient is feeling more anxious ruminating agitated overwhelmed feels somewhat distraught for reasons that are not clear Medication Compliance: Yes Attending Groups: Intermittent Mental Status Exam Mental Status Exam Patient Orientation: Person, Place, Time and Situation Level of Consciousness: Awake Patient Behavior: Appropriate and Fearful Mood Description: Constricted, Depressed, Anxious, Labile and Apprehensive Affect Description: Fearful and Labile Ability to Follow Directions: Good Speech Pattern: Perseverating Hallucinations: None Delusions: Not Present Thought Process: Rumination Thought Content: positive for Perseveration, positive for Preoccupation, positive for Suicidal Ideation and negative for Homicidal Ideation Depressive Symptoms: Increased Anxiety Judgement: Fair Judgement and Insight: Patient triggered by another patient on the unit feels threatened agitated upset does not like how reactive he gets Diagnostics Vital Signs (24Hr): Vital Signs - 24 hr 12/31/22 07:30 Temperature 97.2 F Pulse Rate 73 Respiratory Rate 18 Blood Pressure 114/53 L Pulse Oximetry 97 Oxygen Delivery Method Room Air BMI result Body Mass Index 30.2 Labs 11/13/22 07:43 11/12/22 09:32 Imaging Radiology Impressions: ITS Impressions Chest X-Ray 10/20/22 15:45 IMPRESSION: 1. Low lung volumes with bibasilar linear disc atelectasis versus scarring. 2. No airspace consolidation or effusion. Head CT 11/08/22 12:29 IMPRESSION: No acute intracranial hemorrhage or territorial infarction. Stable chronic postoperative changes with gliosis and encephalomalacia in the right frontal and right temporal lobes. Ex vacuo dilatation of the ventricles and diffuse parenchymal volume loss. Right-sided craniotomy changes. Chest X-Ray 11/12/22 10:32 IMPRESSION: Hypoexpanded lungs with bibasilar platelike atelectasis. Brain MRI 11/12/22 13:15 IMPRESSION: 1. No demonstrated acute intracranial abnormalities. 2. Chronic encephalomalacia of the right temporal, right frontal, and left occipital lobes. Small regions of chronic encephalomalacia in the parasagittal aspects of the bilateral parietal lobes. Moderate underlying microangiopathy and generalized cerebral volume loss. Chest X-Ray 11/14/22 15:52 IMPRESSION: Low lung volumes, bibasilar subsegmental atelectasis and slight elevation of the right hemidiaphragm similar to previous exam. Modified Barium Swallow 11/21/22 15:11 IMPRESSION: Laryngeal penetration on several occasions but no laryngeal aspiration. Mild retention of solid food in the valleculae which cleared with subsequent oral administration of water or thin barium. Correlate with speech therapy results. Medications Medications Current Medications Acetaminophen (Acetaminophen 325 Mg Tablet) 650 mg PO Q6H PRN PRN Reason: Headache/Pain Mild Scale (1-3) Last Admin: 12/31/22 13:54 Dose: 650 mg Al Hydroxide/Mg Hydroxide (Magnesium Hydrox/Alum Hydrox 30 Ml Oral.Susp) 30 ml PO Q6H PRN PRN Reason: Heartburn/Nausea Last Admin: 11/22/22 21:39 Dose: 30 ml Albuterol Sulfate (Albuterol Sulfate 90 Mcg 8 Gm Inhaler) 2 puff INHALE Q6H PRN PRN Reason: Wheezing Alprazolam (Alprazolam 0.5 Mg Tablet) 0.5 mg PO BEDTIME [facility] Last Admin: 12/30/22 21:43 Dose: 0.5 mg Alprazolam (Alprazolam 0.25 Mg Tablet) 0.25 mg PO Q4H PRN PRN Reason: Anxiety Amlodipine Besylate (Amlodipine Besylate 5 Mg Tablet) 5 mg PO DAILY [facility]; Protocol Last Admin: 12/31/22 10:33 Dose: 5 mg Benzocaine (Throat Lozenge, Medicated Lozenge) 1 lozenge MUCOUS MEM Q2H PRN PRN Reason: Sore Throat Last Admin: 11/12/22 03:08 Dose: 1 lozenge Bisacodyl (Bisacodyl 10 Mg Supp.Rect) [address] DAILY PRN PRN Reason: Constipation Calcium Polycarbophil (Calcium Polycarbophil Tablet) 1 tab PO DAILY [facility] Last Admin: 12/31/22 10:34 Dose: 1 tab Docusate Sodium (Docusate Sodium 100 Mg Capsule) 100 mg PO DAILY PRN PRN Reason: constipation Last Admin: 12/13/22 01:31 Dose: 100 mg Finasteride (Finasteride 5 Mg Tablet) 5 mg PO DAILY [facility] Last Admin: 12/31/22 10:34 Dose: 5 mg Gabapentin (Gabapentin 300 Mg Capsule) 300 mg PO TID [facility] Last Admin: 12/31/22 15:21 Dose: 300 mg Guaifenesin/Dextromethorphan (Guaifenesin Dm 200/20/10 Ml 10 Ml Syrup) 10 ml PO Q4H PRN PRN Reason: Cough Last Admin: 11/20/22 05:31 Dose: 10 ml Hydroxyzine HCl (Hydroxyzine Hcl 50 Mg Tablet) 50 mg PO Q4H PRN PRN Reason: Anxiety Last Admin: 12/28/22 15:10 Dose: 50 mg Lamotrigine (Lamotrigine 25 Mg Tablet) 50 mg PO BID [facility] Last Admin: 12/31/22 10:35 Dose: 50 mg Lamotrigine (Lamotrigine 100 Mg Tablet) 100 mg PO BID [facility] Last Admin: 12/31/22 10:34 Dose: 100 mg Latanoprost (Latanoprost 0.005 % Ophth No 2.5 Ml Drops) 1 drop EYE-BOTH BEDTIME [facility] Last Admin: 12/30/22 21:48 Dose: 1 drop Lidocaine (Lidocaine 5 % Ointment 35 Gm) 1 appl TOPICAL QID [facility] Last Admin: 12/31/22 17:29 Dose: Not Given Lisinopril (Lisinopril 20 Mg Tablet) 20 mg PO DAILY [facility]; Protocol Last Admin: 12/31/22 10:34 Dose: 20 mg Magnesium Hydroxide (Milk Of Magnesia 30 Ml Oral.Susp) 30 ml PO DAILY PRN PRN Reason: Constipation Last Admin: 11/28/22 21:13 Dose: 30 ml Melatonin (Melatonin 3 Mg Tablet) 9 mg PO BEDTIME [facility] Last Admin: 12/30/22 21:44 Dose: 9 mg Multi-Ingred Cream/Lotion/Oil/Oint (Mineral Oil/Petrolatum,White 106 Gm Tube) 1 appl TOPICAL BID PRN; Protocol PRN Reason: dry skin Multivitamins/Vitamin C (Multivitamin Tablet) 1 tab PO DAILY [facility] Last Admin: 12/31/22 10:34 Dose: 1 tab Naltrexone HCl (Naltrexone Hcl 50 Mg Tablet) 50 mg PO DAILY [facility] Last Admin: 12/31/22 10:34 Dose: 50 mg Nortriptyline HCl (Nortriptyline Hcl 25 Mg Capsule) 50 mg PO BEDTIME [facility] Last Admin: 12/30/22 21:43 Dose: 50 mg Nystatin (Nystatin Powder 15 Gm Bottle) 1 appl TOPICAL BID [facility]; Protocol Stop: 01/05/23 23:59 Last Admin: 12/31/22 10:35 Dose: Not Given Olanzapine (Olanzapine 2.5 Mg Tablet) 2.5 mg PO DAILY@1500 [facility] Last Admin: 12/31/22 14:56 Dose: 2.5 mg Olanzapine (Olanzapine 5 Mg Tablet) 5 mg PO BEDTIME [facility] Omeprazole (Omeprazole 20 Mg Capsule.Dr) 20 mg PO BID@0630,1630 [facility] Last Admin: 12/31/22 15:39 Dose: 20 mg Ondansetron HCl (Ondansetron Odt 4 Mg Tab.Rapdis) 4 mg TRANSLINGU Q6H PRN PRN Reason: Nausea and Vomiting Last Admin: 12/17/22 12:26 Dose: 4 mg Oxybutynin Chloride (Oxybutynin Chloride Er 5 Mg Tab.Er.24) 10 mg PO DAILY [facility] Last Admin: 12/31/22 10:33 Dose: 10 mg Polyethylene Glycol (Polyethylene Glycol 3350 17 Gm Powd.Pack) 17 gm PO DAILY@1600 [facility] Last Admin: 12/31/22 15:39 Dose: Not Given Senna/Docusate Sodium (Sennosides/Docusate Sodium Tablet) 2 tab PO BID [facility] Last Admin: 12/31/22 10:36 Dose: Not Given Sodium Biphosphate/Sodium Phosphate (Sodium Phosphate,[place]-Dibasic 133 Ml Enema) [address] ONCE PRN PRN Reason: Constipation Tamsulosin HCl (Tamsulosin Hcl 0.4 Mg Capsule) 0.4 mg PO DAILY [facility] Last Admin: 12/31/22 10:33 Dose: 0.4 mg Trazodone HCl (Trazodone Hcl 100 Mg Tablet) 200 mg PO BEDTIME [facility] Last Admin: 12/30/22 21:43 Dose: 200 mg Trazodone HCl (Trazodone Hcl 50 Mg Tablet) 50 mg PO BEDTIME PRN PRN Reason: Insomnia Last Admin: 12/25/22 23:54 Dose: 50 mg Venlafaxine HCl (Venlafaxine Hcl Er 150 Mg Cap.Er.24h) 150 mg PO DAILY [facility] Last Admin: 12/31/22 10:34 Dose: 150 mg Vitamin D (Cholecalciferol (Vitamin D3) 10 Mcg Tablet) 10 mcg PO DAILY [facility] Last Admin: 12/31/22 10:35 Dose: 10 mcg Allergies Allergies Allergy/AdvReac Type Severity Reaction Status Date / Time fentanyl [FENTANYL] Allergy Intermediate unknown Verified 04/08/22 07:00 Assessment & Plan Assessment & Plan (1) Cognitive and neurobehavioral dysfunction following brain injury: Status: Acute Code(s): G31.89 - Other specified degenerative diseases of nervous system; F09 - Unspecified mental disorder due to known physiological condition; S06.9X9S - Unspecified intracranial injury with loss of consciousness of unspecified duration, sequela (2) Major depressive disorder, recurrent severe without psychotic features: Status: Acute Code(s): F33.2 - Major depressive disorder, recurrent severe without psychotic features (3) Swallowing dysfunction: Status: Acute Code(s): R13.10 - Dysphagia, unspecified Plan Patient seems less labile with olanzapine during the day and alprazolam to decrease irritability reactivity monitor for over sedation continue discharge planning Encourage daily strength training Patient educated on: medication risk/benefits and therapeutic strategies Informed Consent: further education needed Reason for contiued inpatient stay Substantial Risk for: harm to self and rapid decompensation Time Spent With Patient Time: Total time managing care of this patient today ____ minutes.
[2022-12-31] MEDS: traZODone HCL 100 MG TABLET 200 MG PO (21:34)
[2022-12-31] MEDS: ALPRAZolam 0.5 MG TABLET PO (21:34)
[2022-12-31] MEDS: Melatonin 3 MG TABLET 9 MG PO (21:35)
[2022-12-31] MEDS: Sennosides/Docusate Sodium TABLET 2 TAB PO (21:37)
[2022-12-31] MEDS: Nortriptyline HCl 25 MG CAPSULE 50 MG PO (21:38)
[2022-12-31] MEDS: OLANZapine 5 MG TABLET PO (21:39)
[2022-12-31] MEDS: Nystatin Powder 15 GM BOTTLE 1 APPL TOPICAL (21:40)
[2022-12-31] MEDS: Latanoprost 0.005 % Ophth Sol 2.5 ML DROPS 1 DROP EYE-BOTH (21:41)
[2022-12-31] MEDS: Lidocaine 5 % Ointment 35 GM 1 APPL TOPICAL (21:41)
[2023-01-01] MEDS: Omeprazole 20 MG CAPSULE.DR PO ×2 (05:58→16:46)
[2023-01-01] MEDS: ALPRAZolam 0.25 MG TABLET PO (06:02)
[2023-01-01 07:30] VITALS: BP 116/56; PULSE 79; RESP 16; TEMP 36.3; O2SAT 97
[2023-01-01] MEDS: Sennosides/Docusate Sodium TABLET 2 TAB PO ×2 (10:20→21:21)
[2023-01-01] MEDS: lamoTRIgine 100 MG TABLET PO ×2 (10:20→21:23)
[2023-01-01] MEDS: Naltrexone HCl 50 MG TABLET PO (10:21)
[2023-01-01] MEDS: Gabapentin 300 MG CAPSULE PO ×3 (10:21→21:22)
[2023-01-01] MEDS: Multivitamin TABLET 1 TAB PO (10:21)
[2023-01-01] MEDS: Tamsulosin HCL 0.4 MG CAPSULE PO (10:22)
[2023-01-01] MEDS: lamoTRIgine 25 MG TABLET 50 MG PO ×2 (10:22→21:21)
[2023-01-01] MEDS: amLODIPine Besylate 5 MG TABLET PO (10:22)
[2023-01-01] MEDS: calcium polycarbophiL TABLET 1 TAB PO (10:22)
[2023-01-01] MEDS: Venlafaxine HCl ER 150 MG CAP.ER.24H PO (10:22)
[2023-01-01] MEDS: lisinopriL 20 MG TABLET PO (10:22)
[2023-01-01] MEDS: Finasteride 5 MG TABLET PO (10:23)
[2023-01-01] MEDS: Cholecalciferol (Vitamin D3) 10 MCG TABLET PO (10:23)
--- NOTE | 2023-01-01 14:28 | MHC.SL.SWA ---
Addendum entered and electronically signed by WANG Cortés 01/01/23 15:25: Ammending note with full treatment note from 01/01/23: Patient seen at lunch for monitoring of toleration of diet, ongoing education regarding swallowing needs. Patient again expressing dissatisfaction related to lack of ability to make individual requests/choices and facing rejection when those requests are made; as well as anger/frustration with being given food items cut into pieces. Patient has been focused on getting out of here to a senior care where I can have what I like and no one can say otherwise, however discharge had been postponed until mid to late January which clearly has frustrated patient. Patient demonstrating again focus is on external limitations imposed upon him regarding diet and swallowing needs v. insight or acceptance of swallowing impairment. Attempted some counselling with patient regarding perception and acceptance, but noted little progress from this discussion. Patient was able give some examples of food that would not be appropriate given his swallowing needs. He also acknowledge that he had choking episodes previous to his swallow study, and since has not had any episodes. Patient was able to state swallow strategies, although it was limited to chew food well, swallow, have a drink and swallow again. Discussed with patient plan to trial period where he is put on a Regular diet where he can make informed choices about foods that are appropriate for him. Intent would be to allow patient to take more personal responsibility for his dietary choices, but also increase his insight/awareness of swallowing needs. Propose that this trial be for a period of one week, with re-assessment of appropriateness and continuation/discontinuation in one week. However, trial could be discontinued at any point if patient evidences poor toleration, poor choices, evidences any choking or coughing/distress during meals. RN advised MOBILE DEVICE DEVELOPER that patient cannot be directly supervised/cued at every meal due to the unit's ability to provide this level of care, however agreed that periodic observation/supervision was possible (and recommended). Recommend upgrade diet to REGULAR, continue with thin liquids, pills whole in with liquid. Continue with swallowing precautions as outlined, provide periodic supervision during all meals, recommend Tx from MOBILE DEVICE DEVELOPER M-F X1/day during trial period. Advised MD/RD of plan/recommendations by secure text. Original Note: Speech Pathologist Impression: Risk of Aspiration Due to: Neurological Condition Reduced Cognition Dysphasia Diet Status: Recommend upgrade diet to REGULAR, continue with thin liquids, pills whole in with liquid for a trial period of one week, to allow patient to make informed, elective choices about food consistent with swallowing needs. Continue with swallowing precautions as outlined, provide periodic supervision during all meals, recommend Tx from MOBILE DEVICE DEVELOPER M-F X1/day during trial period. Advised MD/RD of plan/recommendations by secure text. Liquid Consistency and Strategies for Safe Swallow: Liquid Intake Recommendation: Thin Liquid Intake Strategies: No Straws Double Swallow Solid Food Consistency: Dietary Recommendations: Regular Additional Modifications to Solid Foods: Cue patient to double swallow (dry swallow), particularly on sticky or harder to chew consistencies. Alternate liquids and solids. Oral Medication Intake: Whole with Liquid Please contact the pharmacy regarding appropriate crushable or liquid drug formulations that are available whenever modified delivery is recommended. Compensatory Strategies and Precautions to be Taken for Safe Swallow: Sitting Upright (90 deg) Double Swallow No Straw Small Bites and Sips Alternate Liquids/Solids Rate of Ingestion Change Avoid Specific Foods Supervision While Eating and Drinking for Safe Swallow: Intermittent Supervision Foods to Avoid: Hard to chew solids (e.g. solid pieces of meat), dry consistencies that break into pieces (e.g. cookies, crackers, chips, nuts), mixed solid consistencies that require ample chewing (e.g. green salads), rice. Swallowing Recommended Treatments: Compens. Strategy Educat. Recommendation for Speech: Inpatient Speech Therapy Comment:Recommend upgrade diet to REGULAR, continue with thin liquids, pills whole in with liquid. Continue with swallowing precautions as outlined, provide periodic supervision during all meals, recommend Tx from MOBILE DEVICE DEVELOPER M-F X1/day during trial period. Advised MD/RD of plan/recommendations by secure text. -Take small bites of food -Moisten food with sauces and gravies, ensuring sauces are mixed and blended in well with food -Chew food well -Avoid hard to chew solids, sticky textures, mixed consistencies, and foods that break up into small pieces (rice, popcorn, nuts) -Follow each bite with 2-3 additional dry swallow to promote pharyngeal clearance -After dry swallows, take sips of liquid to promote pharyngeal clearance -Take small, individual sips of liquid -Avoid taking consecutive sips -Avoid the use of straws -Follow sips with a throat clear then dry swallow -Maintain upright 90 degree position while eating and drinking and for at least 45 minutes afterwards -Ensure a rigorous daily oral care routine before first meal and after each subsequent meal Frequency/Duration: Date Range for Service Req: Timeline to reassess: Lime Spreader Clinican/Clinical Fellow: No Supervisory Statement: I have reviewed and agree with the student/clinical fellow's documentation: N/A Speech Language Pathologist: Sarah Cotter M.A., CCC-MOBILE DEVICE DEVELOPER
[2023-01-01] MEDS: OLANZapine 2.5 MG TABLET PO (14:43)
[2023-01-01 19:54] VITALS: BP 134/76; PULSE 78; RESP 18; TEMP 36.6; O2SAT 97
[2023-01-01] MEDS: Lidocaine 5 % Ointment 35 GM 1 APPL TOPICAL (21:20)
[2023-01-01] MEDS: Nystatin Powder 15 GM BOTTLE 1 APPL TOPICAL (21:20)
[2023-01-01] MEDS: Melatonin 3 MG TABLET 9 MG PO (21:22)
[2023-01-01] MEDS: Nortriptyline HCl 25 MG CAPSULE 50 MG PO (21:22)
[2023-01-01] MEDS: traZODone HCL 100 MG TABLET 200 MG PO (21:23)
[2023-01-01] MEDS: OLANZapine 5 MG TABLET PO (21:23)
[2023-01-01] MEDS: ALPRAZolam 0.5 MG TABLET PO (21:24)
[2023-01-01] MEDS: Latanoprost 0.005 % Ophth Sol 2.5 ML DROPS 1 DROP EYE-BOTH (21:25)
--- NOTE | 2023-01-01 21:37 | P.PNPSI_ITS ---
Subjective Subjective Date of Service: 01/01/23 Reason For Visit: Depression hopelessness irritability Subjective Notes: Conditional Voluntary Interim History: Patient has been more irritable reactive Medication Compliance: Yes Attending Groups: Intermittent Mental Status Exam Mental Status Exam Patient Orientation: Person, Place, Time and Situation Level of Consciousness: Awake Patient Behavior: Appropriate and Fearful Mood Description: Constricted, Depressed, Anxious, Labile and Apprehensive Affect Description: Fearful and Labile Ability to Follow Directions: Good Speech Pattern: Perseverating Hallucinations: None Delusions: Not Present Thought Process: Rumination Thought Content: positive for Perseveration, positive for Preoccupation, positive for Suicidal Ideation (Denies current plan or intent) and negative for Homicidal Ideation Depressive Symptoms: Increased Anxiety Judgement: Fair Judgement and Insight: Patient triggered by another patient on the unit feels threatened agitated upset does not like how reactive he gets Diagnostics Vital Signs (24Hr): Vital Signs - 24 hr 01/01/23 07:30 01/01/23 19:54 Temperature 97.3 F 97.8 F Pulse Rate 79 78 Respiratory Rate 16 18 Blood Pressure 116/56 L 134/76 Pulse Oximetry 97 97 Oxygen Delivery Method Room Air Room Air BMI result Body Mass Index 30.2 Labs 11/13/22 07:43 11/12/22 09:32 Imaging Radiology Impressions: ITS Impressions Chest X-Ray 10/20/22 15:45 IMPRESSION: 1. Low lung volumes with bibasilar linear disc atelectasis versus scarring. 2. No airspace consolidation or effusion. Head CT 11/08/22 12:29 IMPRESSION: No acute intracranial hemorrhage or territorial infarction. Stable chronic postoperative changes with gliosis and encephalomalacia in the right frontal and right temporal lobes. Ex vacuo dilatation of the ventricles and diffuse parenchymal volume loss. Right-sided craniotomy changes. Chest X-Ray 11/12/22 10:32 IMPRESSION: Hypoexpanded lungs with bibasilar platelike atelectasis. Brain MRI 11/12/22 13:15 IMPRESSION: 1. No demonstrated acute intracranial abnormalities. 2. Chronic encephalomalacia of the right temporal, right frontal, and left occipital lobes. Small regions of chronic encephalomalacia in the parasagittal aspects of the bilateral parietal lobes. Moderate underlying microangiopathy and generalized cerebral volume loss. Chest X-Ray 11/14/22 15:52 IMPRESSION: Low lung volumes, bibasilar subsegmental atelectasis and slight elevation of the right hemidiaphragm similar to previous exam. Modified Barium Swallow 11/21/22 15:11 IMPRESSION: Laryngeal penetration on several occasions but no laryngeal aspiration. Mild retention of solid food in the valleculae which cleared with subsequent oral administration of water or thin barium. Correlate with speech therapy results. Medications Medications Current Medications Acetaminophen (Acetaminophen 325 Mg Tablet) 650 mg PO Q6H PRN PRN Reason: Headache/Pain Mild Scale (1-3) Last Admin: 12/31/22 13:54 Dose: 650 mg Al Hydroxide/Mg Hydroxide (Magnesium Hydrox/Alum Hydrox 30 Ml Oral.Susp) 30 ml PO Q6H PRN PRN Reason: Heartburn/Nausea Last Admin: 11/22/22 21:39 Dose: 30 ml Albuterol Sulfate (Albuterol Sulfate 90 Mcg 8 Gm Inhaler) 2 puff INHALE Q6H PRN PRN Reason: Wheezing Alprazolam (Alprazolam 0.5 Mg Tablet) 0.5 mg PO BEDTIME [facility] Last Admin: 01/01/23 21:24 Dose: 0.5 mg Alprazolam (Alprazolam 0.25 Mg Tablet) 0.25 mg PO Q4H PRN PRN Reason: Anxiety Last Admin: 01/01/23 06:02 Dose: 0.25 mg Amlodipine Besylate (Amlodipine Besylate 5 Mg Tablet) 5 mg PO DAILY [facility]; Protocol Last Admin: 01/01/23 10:22 Dose: 5 mg Benzocaine (Throat Lozenge, Medicated Lozenge) 1 lozenge MUCOUS MEM Q2H PRN PRN Reason: Sore Throat Last Admin: 11/12/22 03:08 Dose: 1 lozenge Bisacodyl (Bisacodyl 10 Mg Supp.Rect) 10 mg [place] DAILY PRN PRN Reason: Constipation Calcium Polycarbophil (Calcium Polycarbophil Tablet) 1 tab PO DAILY [facility] Last Admin: 01/01/23 10:22 Dose: 1 tab Docusate Sodium (Docusate Sodium 100 Mg Capsule) 100 mg PO DAILY PRN PRN Reason: constipation Last Admin: 12/13/22 01:31 Dose: 100 mg Finasteride (Finasteride 5 Mg Tablet) 5 mg PO DAILY [facility] Last Admin: 01/01/23 10:23 Dose: 5 mg Gabapentin (Gabapentin 300 Mg Capsule) 300 mg PO TID [facility] Last Admin: 01/01/23 21:22 Dose: 300 mg Guaifenesin/Dextromethorphan (Guaifenesin Dm 200/20/10 Ml 10 Ml Syrup) 10 ml PO Q4H PRN PRN Reason: Cough Last Admin: 11/20/22 05:31 Dose: 10 ml Hydroxyzine HCl (Hydroxyzine Hcl 50 Mg Tablet) 50 mg PO Q4H PRN PRN Reason: Anxiety Last Admin: 12/28/22 15:10 Dose: 50 mg Lamotrigine (Lamotrigine 25 Mg Tablet) 50 mg PO BID [facility] Last Admin: 01/01/23 21:21 Dose: 50 mg Lamotrigine (Lamotrigine 100 Mg Tablet) 100 mg PO BID [facility] Last Admin: 01/01/23 21:23 Dose: 100 mg Latanoprost (Latanoprost 0.005 % Ophth No 2.5 Ml Drops) 1 drop EYE-BOTH BED TIME [facility] Last Admin: 01/01/23 21:25 Dose: 1 drop Lidocaine (Lidocaine 5 % Ointment 35 Gm) 1 appl TOPICAL QID [facility] Last Admin: 01/01/23 21:20 Dose: 1 appl Lisinopril (Lisinopril 20 Mg Tablet) 20 mg PO DAILY [facility]; Protocol Last Admin: 01/01/23 10:22 Dose: 20 mg Magnesium Hydroxide (Milk Of Magnesia 30 Ml Oral.Susp) 30 ml PO DAILY PRN PRN Reason: Constipation Last Admin: 11/28/22 21:13 Dose: 30 ml Melatonin (Melatonin 3 Mg Tablet) 9 mg PO BEDTIME [facility] Last Admin: 01/01/23 21:22 Dose: 9 mg Multi-Ingred Cream/Lotion/Oil/Oint (Mineral Oil/Petrolatum,White 106 Gm Tube) 1 appl TOPICAL BID PRN; Protocol PRN Reason: dry skin Multivitamins/Vitamin C (Multivitamin Tablet) 1 tab PO DAILY [facility] Last Admin: 01/01/23 10:21 Dose: 1 tab Naltrexone HCl (Naltrexone Hcl 50 Mg Tablet) 50 mg PO DAILY [facility] Last Admin: 01/01/23 10:21 Dose: 50 mg Nortriptyline HCl (Nortriptyline Hcl 25 Mg Capsule) 50 mg PO BEDTIME [facility] Last Admin: 01/01/23 21:22 Dose: 50 mg Nystatin (Nystatin Powder 15 Gm Bottle) 1 appl TOPICAL BID [facility]; Protocol Stop: 01/05/23 23:59 Last Admin: 01/01/23 21:20 Dose: 1 appl Olanzapine (Olanzapine 2.5 Mg Tablet) 2.5 mg PO DAILY@1500 [facility] Last Admin: 01/01/23 14:43 Dose: 2.5 mg Olanzapine (Olanzapine 5 Mg Tablet) 5 mg PO BEDTIME [facility] Last Admin: 01/01/23 21:23 Dose: 5 mg Omeprazole (Omeprazole 20 Mg Capsule.Dr) 20 mg PO BID@0630,1630 [facility] Last Admin: 01/01/23 16:46 Dose: 20 mg Ondansetron HCl (Ondansetron Odt 4 Mg Tab.Rapdis) 4 mg TRANSLINGU Q6H PRN PRN Reason: Nausea and Vomiting Last Admin: 12/17/22 12:26 Dose: 4 mg Oxybutynin Chloride (Oxybutynin Chloride Er 5 Mg Tab.Er.24) 10 mg PO DAILY [facility] Last Admin: 01/01/23 10:21 Dose: 10 mg Polyethylene Glycol (Polyethylene Glycol 3350 17 Gm Powd.Pack) 17 gm PO DAILY@1600 [facility] Last Admin: 01/01/23 16:50 Dose: Not Given Senna/Docusate Sodium (Sennosides/Docusate Sodium Tablet) 2 tab PO BID [facility] Last Admin: 01/01/23 21:21 Dose: 2 tab Sodium Biphosphate/Sodium Phosphate (Sodium Phosphate,[place]-Dibasic 133 Ml Enema) 133 ml [place] ONCE PRN PRN Reason: Constipation Tamsulosin HCl (Tamsulosin Hcl 0.4 Mg Capsule) 0.4 mg PO DAILY [facility] Last Admin: 01/01/23 10:22 Dose: 0.4 mg Trazodone HCl (Trazodone Hcl 100 Mg Tablet) 200 mg PO BEDTIME [facility] Last Admin: 01/01/23 21:23 Dose: 200 mg Trazodone HCl (Trazodone Hcl 50 Mg Tablet) 50 mg PO BEDTIME PRN PRN Reason: Insomnia Last Admin: 12/25/22 23:54 Dose: 50 mg Venlafaxine HCl (Venlafaxine Hcl Er 150 Mg Cap.Er.24h) 150 mg PO DAILY [facility] Last Admin: 01/01/23 10:22 Dose: 150 mg Vitamin D (Cholecalciferol (Vitamin D3) 10 Mcg Tablet) 10 mcg PO DAILY [facility] Last Admin: 01/01/23 10:23 Dose: 10 mcg Allergies Allergies Allergy/AdvReac Type Severity Reaction Status Date / Time fentanyl [FENTANYL] Allergy Intermediate unknown Verified 04/08/22 07:00 Assessment & Plan Assessment & Plan (1) Cognitive and neurobehavioral dysfunction following brain injury: Status: Acute Code(s): G31.89 - Other specified degenerative diseases of nervous system; F09 - Unspecified mental disorder due to known physiological condition; S06.9X9S - Unspecified intracranial injury with loss of consciousness of unspecified duration, sequela (2) Major depressive disorder, recurrent severe without psychotic features: Status: Acute Code(s): F33.2 - Major depressive disorder, recurrent severe without psychotic features (3) Swallowing dysfunction: Status: Acute Code(s): R13.10 - Dysphagia, unspecified Plan Patient seems minimally less labile with olanzapine during the day and alprazolam to decrease irritability reactivity monitor for over sedation continue discharge planning Encourage daily strength training lower Effexor to 75 mg in case it is overly stimulating the patient to increased reactivity Patient educated on: diagnosis, medication risk/benefits and therapeutic strategies Informed Consent: understands Reason for contiued inpatient stay Substantial Risk for: harm to self, inability to function and rapid decompensation Time Spent With Patient Time: Total time managing care of this patient today ____ minutes.
[2023-01-02 06:00] VITALS: BP 123/62; PULSE 76; RESP 18; TEMP 36.6; O2SAT 96
[2023-01-02] MEDS: lamoTRIgine 25 MG TABLET 50 MG PO (10:27)
[2023-01-02] MEDS: Naltrexone HCl 50 MG TABLET PO (10:27)
[2023-01-02] MEDS: Gabapentin 300 MG CAPSULE PO ×3 (10:28→21:22)
[2023-01-02] MEDS: calcium polycarbophiL TABLET 1 TAB PO (10:29)
[2023-01-02] MEDS: Sennosides/Docusate Sodium TABLET 2 TAB PO ×2 (10:29→21:25)
[2023-01-02] MEDS: Venlafaxine HCl ER 75 MG CAP.ER.24H PO (10:30)
[2023-01-02] MEDS: lamoTRIgine 100 MG TABLET PO ×2 (10:30→21:23)
[2023-01-02] MEDS: amLODIPine Besylate 5 MG TABLET PO (10:30)
[2023-01-02] MEDS: Tamsulosin HCL 0.4 MG CAPSULE PO (10:30)
[2023-01-02] MEDS: Acetaminophen 325 MG TABLET 650 MG PO (15:33)
[2023-01-02] MEDS: ALPRAZolam 0.25 MG TABLET PO (15:33)
[2023-01-02] MEDS: OLANZapine 2.5 MG TABLET PO (15:33)
[2023-01-02] MEDS: polyethylene glycoL 3350 17 GM POWD.PACK PO (15:33)
[2023-01-02 18:00] VITALS: BP 149/78; PULSE 77; RESP 20; TEMP 36.6; O2SAT 97
[2023-01-02] MEDS: Divalproex Sodium Sprinkles 125 MG CAP.DR.SPR PO (21:22)
[2023-01-02] MEDS: ALPRAZolam 0.5 MG TABLET PO (21:22)
[2023-01-02] MEDS: lamoTRIgine 25 MG TABLET PO (21:23)
[2023-01-02] MEDS: Lidocaine 5 % Ointment 35 GM 1 APPL TOPICAL (21:24)
[2023-01-02] MEDS: Nystatin Powder 15 GM BOTTLE 1 APPL TOPICAL (21:25)
[2023-01-02] MEDS: OLANZapine 5 MG TABLET PO (21:25)
[2023-01-02] MEDS: Nortriptyline HCl 25 MG CAPSULE 50 MG PO (21:25)
[2023-01-02] MEDS: Melatonin 3 MG TABLET 9 MG PO (21:25)
[2023-01-02] MEDS: traZODone HCL 100 MG TABLET 200 MG PO (21:26)
--- NOTE | 2023-01-02 21:46 | HO.PSYCHPN ---
Subjective Subjective Date of Service: 01/02/23 Reason For Visit: Depression hopelessness irritability Subjective Notes: Conditional Voluntary Interim History: Patient continues to feel upset over his intermittent lack of control asking about starting Depakote which we had talked about previously seems better on lower dose of Effexor Medication Compliance: Yes Mental Status Exam Mental Status Exam Patient Orientation: Person, Place, Time and Situation Level of Consciousness: Awake Patient Behavior: Appropriate and Fearful Mood Description: Constricted, Depressed, Anxious, Labile and Apprehensive Affect Description: Fearful and Labile Ability to Follow Directions: Good Speech Pattern: Perseverating Hallucinations: None Delusions: Not Present Thought Process: Rumination Thought Content: positive for Perseveration, positive for Preoccupation, positive for Suicidal Ideation (Denies current plan or intent) and negative for Homicidal Ideation Depressive Symptoms: Increased Anxiety Judgement: Fair Judgement and Insight: Patient triggered by another patient on the unit feels threatened agitated upset does not like how reactive he gets Diagnostics Vital Signs (24Hr): Vital Signs - 24 hr 01/02/23 06:00 Temperature 97.8 F Pulse Rate 76 Respiratory Rate 18 Blood Pressure 123/62 Pulse Oximetry 96 Oxygen Delivery Method Room Air BMI result Body Mass Index 30.2 Labs 11/13/22 07:43 11/12/22 09:32 Imaging Radiology Impressions: ITS Impressions Chest X-Ray 10/20/22 15:45 IMPRESSION: 1. Low lung volumes with bibasilar linear disc atelectasis versus scarring. 2. No airspace consolidation or effusion. Head CT 11/08/22 12:29 IMPRESSION: No acute intracranial hemorrhage or territorial infarction. Stable chronic postoperative changes with gliosis and encephalomalacia in the right frontal and right temporal lobes. Ex vacuo dilatation of the ventricles and diffuse parenchymal volume loss. Right-sided craniotomy changes. Chest X-Ray 11/12/22 10:32 IMPRESSION: Hypoexpanded lungs with bibasilar platelike atelectasis. Brain MRI 11/12/22 13:15 IMPRESSION: 1. No demonstrated acute intracranial abnormalities. 2. Chronic encephalomalacia of the right temporal, right frontal, and left occipital lobes. Small regions of chronic encephalomalacia in the parasagittal aspects of the bilateral parietal lobes. Moderate underlying microangiopathy and generalized cerebral volume loss. Chest X-Ray 12/30/22 15:52 IMPRESSION: Low lung volumes, bibasilar subsegmental atelectasis and slight elevation of the right hemidiaphragm similar to previous exam. Modified Barium Swallow 11/21/22 15:11 IMPRESSION: Laryngeal penetration on several occasions but no laryngeal aspiration. Mild retention of solid food in the valleculae which cleared with subsequent oral administration of water or thin barium. Correlate with speech therapy results. Medications Medications Current Medications Acetaminophen (Acetaminophen 325 Mg Tablet) 650 mg PO Q6H PRN PRN Reason: Headache/Pain Mild Scale (1-3) Last Admin: 01/02/23 15:33 Dose: 650 mg Albuterol Sulfate (Albuterol Sulfate 90 Mcg 8 Gm Inhaler) 2 puff INHALE Q6H PRN PRN Reason: Wheezing Alprazolam (Alprazolam 0.5 Mg Tablet) 0.5 mg PO BEDTIME [facility] Last Admin: 01/02/23 21:22 Dose: 0.5 mg Alprazolam (Alprazolam 0.25 Mg Tablet) 0.25 mg PO Q4H PRN PRN Reason: Anxiety Last Admin: 01/02/23 15:33 Dose: 0.25 mg Amlodipine Besylate (Amlodipine Besylate 5 Mg Tablet) 5 mg PO DAILY [facility]; Protocol Last Admin: 01/02/23 10:30 Dose: 5 mg Benzocaine (Throat Lozenge, Medicated Lozenge) 1 lozenge MUCOUS MEM Q2H PRN PRN Reason: Sore Throat Last Admin: 11/12/22 03:08 Dose: 1 lozenge Bisacodyl (Bisacodyl 10 Mg Supp.Rect) 10 mg [place] DAILY PRN PRN Reason: Constipation Calcium Polycarbophil (Calcium Polycarbophil Tablet) 1 tab PO DAILY [facility] Last Admin: 01/02/23 10:29 Dose: 1 tab Divalproex Sodium (Divalproex Sodium Sprinkles 125 Mg ) 125 mg PO BID [facility] Last Admin: 01/02/23 21:22 Dose: 125 mg Docusate Sodium (Docusate Sodium 100 Mg Capsule) 100 mg PO DAILY PRN PRN Reason: constipation Last Admin: 12/13/22 01:31 Dose: 100 mg Gabapentin (Gabapentin 300 Mg Capsule) 300 mg PO TID [facility] Last Admin: 01/02/23 21:22 Dose: 300 mg Guaifenesin/Dextromethorphan (Guaifenesin Dm 200/20/10 Ml 10 Ml Syrup) 10 ml PO Q4H PRN PRN Reason: Cough Last Admin: 11/20/22 05:31 Dose: 10 ml Hydroxyzine HCl (Hydroxyzine Hcl 50 Mg Tablet) 50 mg PO Q4H PRN PRN Reason: Anxiety Last Admin: 12/28/22 15:10 Dose: 50 mg Lamotrigine (Lamotrigine 100 Mg Tablet) 100 mg PO BID [facility] Last Admin: 01/02/23 21:23 Dose: 100 mg Lamotrigine (Lamotrigine 25 Mg Tablet) 25 mg PO BID [facility] Last Admin: 01/02/23 21:23 Dose: 25 mg Lidocaine (Lidocaine 5 % Ointment 35 Gm) 1 appl TOPICAL QID [facility] Last Admin: 01/02/23 21:24 Dose: 1 appl Melatonin (Melatonin 3 Mg Tablet) 9 mg PO BEDTIME [facility] Last Admin: 01/02/23 21:25 Dose: 9 mg Multi-Ingred Cream/Lotion/Oil/Oint (Mineral Oil/Petrolatum,White 106 Gm Tube) 1 appl TOPICAL BID PRN; Protocol PRN Reason: dry skin Naltrexone HCl (Naltrexone Hcl 50 Mg Tablet) 50 mg PO DAILY [facility] Last Admin: 01/02/23 10:27 Dose: 50 mg Nortriptyline HCl (Nortriptyline Hcl 25 Mg Capsule) 50 mg PO BEDTIME [facility] Last Admin: 01/02/23 21:25 Dose: 50 mg Nystatin (Nystatin Powder 15 Gm Bottle) 1 appl TOPICAL BID [facility]; Protocol Stop: 01/05/23 23:59 Last Admin: 01/02/23 21:25 Dose: 1 appl Olanzapine (Olanzapine 2.5 Mg Tablet) 2.5 mg PO DAILY@1500 [facility] Last Admin: 01/02/23 15:33 Dose: 2.5 mg Olanzapine (Olanzapine 5 Mg Tablet) 5 mg PO BEDTIME [facility] Last Admin: 01/02/23 21:25 Dose: 5 mg Ondansetron HCl (Ondansetron Odt 4 Mg Tab.Rapdis) 4 mg TRANSLINGU Q6H PRN PRN Reason: Nausea and Vomiting Last Admin: 12/17/22 12:26 Dose: 4 mg Polyethylene Glycol (Polyethylene Glycol 3350 17 Gm Powd.Pack) 17 gm PO DAILY@1600 [facility] Last Admin: 01/02/23 15:33 Dose: 17 gm Senna/Docusate Sodium (Sennosides/Docusate Sodium Tablet) 2 tab PO BID [facility] Last Admin: 01/02/23 21:25 Dose: 2 tab Sodium Biphosphate/Sodium Phosphate (Sodium Phosphate,[place]-Dibasic 133 Ml Enema) 133 ml [place] ONCE PRN PRN Reason: Constipation Tamsulosin HCl (Tamsulosin Hcl 0.4 Mg Capsule) 0.4 mg PO DAILY [facility] Last Admin: 01/02/23 10:30 Dose: 0.4 mg Trazodone HCl (Trazodone Hcl 100 Mg Tablet) 200 mg PO BEDTIME [facility] Last Admin: 01/02/23 21:26 Dose: 200 mg Venlafaxine HCl (Venlafaxine Hcl Er 75 Mg Cap.Er.24h) 75 mg PO DAILY [facility] Last Admin: 01/02/23 10:30 Dose: 75 mg Allergies Allergies Allergy/AdvReac Type Severity Reaction Status Date / Time fentanyl [FENTANYL] Allergy Intermediate unknown Verified 04/08/22 07:00 Assessment & Plan Assessment & Plan (1) Cognitive and neurobehavioral dysfunction following brain injury: Status: Acute Code(s): G31.89 - Other specified degenerative diseases of nervous system; F09 - Unspecified mental disorder due to known physiological condition; S06.9X9S - Unspecified intracranial injury with loss of consciousness of unspecified duration, sequela (2) Major depressive disorder, recurrent severe without psychotic features: Status: Acute Code(s): F33.2 - Major depressive disorder, recurrent severe without psychotic features (3) Swallowing dysfunction: Status: Acute Code(s): R13.10 - Dysphagia, unspecified Plan Patient seems minimally less labile with olanzapine during the day and alprazolam to decrease irritability reactivity monitor for over sedation continue discharge planning Encourage daily strength training lower Effexor to 75 mg in case it is overly stimulating the patient to increased reactivity Start Depakote 125 mg twice a day will start gradually for mood instability Patient educated on: diagnosis, medication risk/benefits and therapeutic strategies Informed Consent: understands Reason for contiued inpatient stay Substantial Risk for: harm to self and rapid decompensation Time Spent With Patient Time: Total time managing care of this patient today ____ minutes.
[2023-01-03 06:00] VITALS: BP 106/65; PULSE 78; RESP 16; TEMP 36.7; O2SAT 98
[2023-01-03] MEDS: Venlafaxine HCl ER 75 MG CAP.ER.24H PO (09:35)
[2023-01-03] MEDS: Tamsulosin HCL 0.4 MG CAPSULE PO (09:35)
[2023-01-03] MEDS: Naltrexone HCl 50 MG TABLET PO (09:35)
[2023-01-03] MEDS: Divalproex Sodium Sprinkles 125 MG CAP.DR.SPR PO ×2 (09:35→21:15)
[2023-01-03] MEDS: lamoTRIgine 100 MG TABLET PO ×2 (09:36→21:15)
[2023-01-03] MEDS: amLODIPine Besylate 5 MG TABLET PO (09:36)
[2023-01-03] MEDS: lamoTRIgine 25 MG TABLET PO ×2 (09:36→21:15)
[2023-01-03] MEDS: Sennosides/Docusate Sodium TABLET 2 TAB PO ×2 (09:36→21:17)
[2023-01-03] MEDS: Gabapentin 300 MG CAPSULE PO ×3 (09:36→21:15)
[2023-01-03] MEDS: calcium polycarbophiL TABLET 1 TAB PO (09:36)
--- NOTE | 2023-01-03 11:38 | P.PNPSI_ITS ---
Subjective Subjective Date of Service: 01/03/23 Reason For Visit: Depression hopelessness irritability Subjective Notes: Conditional Voluntary Interim History: Patient was seen and discussed in rounds today. Records and plans were reviewed. He is awaiting placement. He has been compliant with treatment. Eating and sleeping adequately. He is compliant with his medications and had several questions about recent changes and addition of Depakote which we disc ussed. No changes were made today Medication Compliance: Yes Side effects from medications: No Attending Groups: Yes Review of Systems Review of Systems Yes all other systems are reviewed and are negative Diagnostics Vital Signs (24Hr): Vital Signs - 24 hr 01/02/23 18:00 01/03/23 06:00 Temperature 97.8 F 98.0 F Pulse Rate 77 78 Respiratory Rate 20 16 Blood Pressure 149/78 H 106/65 Pulse Oximetry 97 98 Oxygen Delivery Method Room Air Room Air BMI result Body Mass Index 30.2 Labs 11/13/22 07:43 11/12/22 09:32 Imaging Radiology Impressions: ITS Impressions Chest X-Ray 10/20/22 15:45 IMPRESSION: 1. Low lung volumes with bibasilar linear disc atelectasis versus scarring. 2. No airspace consolidation or effusion. Head CT 11/08/22 12:29 IMPRESSION: No acute intracranial hemorrhage or territorial infarction. Stable chronic postoperative changes with gliosis and encephalomalacia in the right frontal and right temporal lobes. Ex vacuo dilatation of the ventricles and diffuse parenchymal volume loss. Right-sided craniotomy changes. Chest X-Ray 11/12/22 10:32 IMPRESSION: Hypoexpanded lungs with bibasilar platelike atelectasis. Brain MRI 11/12/22 13:15 IMPRESSION: 1. No demonstrated acute intracranial abnormalities. 2. Chronic encephalomalacia of the right temporal, right frontal, and left occipital lobes. Small regions of chronic encephalomalacia in the parasagittal aspects of the bilateral parietal lobes. Moderate underlying microangiopathy and generalized cerebral volume loss. Chest X-Ray 11/14/22 15:52 IMPRESSION: Low lung volumes, bibasilar subsegmental atelectasis and slight elevation of the right hemidiaphragm similar to previous exam. Modified Barium Swallow 11/21/22 15:11 IMPRESSION: Laryngeal penetration on several occasions but no laryngeal aspiration. Mild retention of solid food in the valleculae which cleared with subsequent oral administration of water or thin barium. Correlate with speech therapy results. Medications Medications Current Medications Acetaminophen (Acetaminophen 325 Mg Tablet) 650 mg PO Q6H PRN PRN Reason: Headache/Pain Mild Scale (1-3) Last Admin: 01/02/23 15:33 Dose: 650 mg Albuterol Sulfate (Albuterol Sulfate 90 Mcg 8 Gm Inhaler) 2 puff INHALE Q6H PRN PRN Reason: Wheezing Alprazolam (Alprazolam 0.5 Mg Tablet) 0.5 mg PO BEDTIME [facility] Last Admin: 01/02/23 21:22 Dose: 0.5 mg Alprazolam (Alprazolam 0.25 Mg Tablet) 0.25 mg PO Q4H PRN PRN Reason: Anxiety Last Admin: 01/02/23 15:33 Dose: 0.25 mg Amlodipine Besylate (Amlodipine Besylate 5 Mg Tablet) 5 mg PO DAILY [facility]; Lavell col Last Admin: 01/03/23 09:36 Dose: 5 mg Benzocaine (Throat Lozenge, Medicated Lozenge) 1 lozenge MUCOUS MEM Q2H PRN PRN Reason: Sore Throat Last Admin: 11/12/22 03:08 Dose: 1 lozenge Bisacodyl (Bisacodyl 10 Mg Supp.Rect) 10 mg ME DAILY PRN PRN Reason: Constipation Calcium Polycarbophil (Calcium Polycarbophil Tablet) 1 tab PO DAILY [facility] Last Admin: 01/03/23 09:36 Dose: 1 tab Divalproex Sodium (Divalproex Sodium Sprinkles 125 Mg ) 125 mg PO BID [facility] Last Admin: 01/03/23 09:35 Dose: 125 mg Docusate Sodium (Docusate Sodium 100 Mg Capsule) 100 mg PO DAILY PRN PRN Reason: constipation Last Admin: 12/13/22 01:31 Dose: 100 mg Gabapentin (Gabapentin 300 Mg Capsule) 300 mg PO TID [facility] Last Admin: 01/03/23 09:36 Dose: 300 mg Guaifenesin/Dextromethorphan (Guaifenesin Dm 200/20/10 Ml 10 Ml Syrup) 10 ml PO Q4H PRN PRN Reason: Cough Last Admin: 11/20/22 05:31 Dose: 10 ml Hydroxyzine HCl (Hydroxyzine Hcl 50 Mg Tablet) 50 mg PO Q4H PRN PRN Reason: Anxiety Last Admin: 12/28/22 15:10 Dose: 50 mg Lamotrigine (Lamotrigine 100 Mg Tablet) 100 mg PO BID [facility] Last Admin: 01/03/23 09:36 Dose: 100 mg Lamotrigine (Lamotrigine 25 Mg Tablet) 25 mg PO BID [facility] Last Admin: 01/03/23 09:36 Dose: 25 mg Lidocaine (Lidocaine 5 % Ointment 35 Gm) 1 appl TOPICAL QID [facility] Last Admin: 01/03/23 09:36 Dose: Not Given Melatonin (Melatonin 3 Mg Tablet) 9 mg PO BEDTIME [facility] Last Admin: 01/02/23 21:25 Dose: 9 mg Multi-Ingred Cream/Lotion/Oil/Oint (Mineral Oil/Petrolatum,White 106 Gm Tube) 1 appl TOPICAL BID PRN; Protocol PRN Reason: dry skin Naltrexone HCl (Naltrexone Hcl 50 Mg Tablet) 50 mg PO DAILY [facility] Last Admin: 01/03/23 09:35 Dose: 50 mg Nortriptyline HCl (Nortriptyline Hcl 25 Mg Capsule) 50 mg PO BEDTIME [facility] Last Admin: 01/02/23 21:25 Dose: 50 mg Nystatin (Nystatin Powder 15 Gm Bottle) 1 appl TOPICAL BID [facility]; Protocol Stop: 01/05/23 23:59 Last Admin: 01/03/23 09:36 Dose: Not Given Olanzapine (Olanzapine 2.5 Mg Tablet) 2.5 mg PO DAILY@1500 [facility] Last Admin: 01/02/23 15:33 Dose: 2.5 mg Olanzapine (Olanzapine 5 Mg Tablet) 5 mg PO BEDTIME [facility] Last Admin: 01/02/23 21:25 Dose: 5 mg Ondansetron HCl (Ondansetron Odt 4 Mg Tab.Rapdis) 4 mg TRANSLINGU Q6H PRN PRN Reason: Nausea and Vomiting Last Admin: 12/17/22 12:26 Dose: 4 mg Polyethylene Glycol (Polyethylene Glycol 3350 17 Gm Powd.Pack) 17 gm PO DAILY@1600 [facility] Last Admin: 01/02/23 15:33 Dose: 17 gm Senna/Docusate Sodium (Sennosides/Docusate Sodium Tablet) 2 tab PO BID [facility] Last Admin: 01/03/23 09:36 Dose: 2 tab Sodium Biphosphate/Sodium Phosphate (Sodium Phosphate,[place]-Dibasic 133 Ml Enema) 133 ml ME ONCE PRN PRN Reason: Constipation Tamsulosin HCl (Tamsulosin Hcl 0.4 Mg Capsule) 0.4 mg PO DAILY [facility] Last Admin: 01/03/23 09:35 Dose: 0.4 mg Trazodone HCl (Trazodone Hcl 100 Mg Tablet) 200 mg PO BEDTIME [facility] Last Admin: 01/02/23 21:26 Dose: 200 mg Venlafaxine HCl (Venlafaxine Hcl Er 75 Mg Cap.Er.24h) 75 mg PO DAILY [facility] Last Admin: 01/03/23 09:35 Dose: 75 mg Allergies Allergies Allergy/AdvReac Type Severity Reaction Status Date / Time fentanyl [FENTANYL] Allergy Intermediate unknown Verified 04/08/22 07:00 Assessment & Plan Assessment & Plan (1) Cognitive and neurobehavioral dysfunction following brain injury: Status: Acute Code(s): G31.89 - Other specified degenerative diseases of nervous system; F09 - Unspecified mental disorder due to known physiological condition; S06.9X9S - Unspecified intracranial injury with loss of consciousness of unspecified duration, sequela (2) Major depressive disorder, recurrent severe without psychotic features: Status: Acute Code(s): F33.2 - Major depressive disorder, recurrent severe without psychotic features (3) Swallowing dysfunction: Status: Acute Code(s): R13.10 - Dysphagia, unspecified Plan Patient seems minimally less labile with olanzapine during the day and alpr azolam to decrease irritability reactivity monitor for over sedation continue discharge planning Encourage daily strength training lower Effexor to 75 mg in case it is overly stimulating the patient to increased reactivity 12/03: Continue current regimen and plans Patient educated on: medication risk/benefits Reason for contiued inpatient stay Substantial Risk for: med/psych decompensation Time Spent With Patient Time: Total time managing care of this patient today ____ minutes.
[2023-01-03] MEDS: Acetaminophen 325 MG TABLET 650 MG PO ×2 (14:59→21:17)
[2023-01-03] MEDS: ALPRAZolam 0.25 MG TABLET PO (14:59)
[2023-01-03] MEDS: OLANZapine 2.5 MG TABLET PO (14:59)
[2023-01-03 18:00] VITALS: BP 114/65; PULSE 71; RESP 18; TEMP 36.3; O2SAT 94
[2023-01-03] MEDS: ALPRAZolam 0.5 MG TABLET PO (21:14)
[2023-01-03] MEDS: Melatonin 3 MG TABLET 9 MG PO (21:16)
[2023-01-03] MEDS: Nortriptyline HCl 25 MG CAPSULE 50 MG PO (21:16)
[2023-01-03] MEDS: OLANZapine 5 MG TABLET PO (21:17)
[2023-01-03] MEDS: traZODone HCL 100 MG TABLET 200 MG PO (21:17)
[2023-01-03] MEDS: Lidocaine 5 % Ointment 35 GM 1 APPL TOPICAL (21:33)
[2023-01-03] MEDS: Nystatin Powder 15 GM BOTTLE 1 APPL TOPICAL (21:44)
[2023-01-03] MEDS: Latanoprost 0.005 % Ophth Sol 2.5 ML DROPS 1 DROP EYE-BOTH (22:55)
--- NOTE | 2023-01-04 | ECG_ITS ---
Test Reason : chest pain Blood Pressure : / mmHG Vent. Rate : 069 BPM Atrial Rate : 069 BPM P-R Int : 236 ms QRS Dur : 104 ms QT Int : 418 ms P-R-T Axes : 050 -30 093 degrees QTc Int : 447 ms Sinus rhythm with 1st degree A-V block Left axis deviation Inferior infarct (cited on or before 27-OCT-2022) Abnormal ECG When compared with ECG of 26-NOV-2022 02:57, No significant change was found Referred By: Zarina Schmitz Electronically Signed By:SUSHILA FISHER
[2023-01-04] MEDS: hydrOXYzine HCL 50 MG TABLET PO (00:22)
[2023-01-04] MEDS: ALPRAZolam 0.25 MG TABLET PO ×2 (02:41→16:00)
[2023-01-04 06:00] VITALS: BP 138/75; PULSE 78; RESP 18; TEMP 36.4; O2SAT 95
[2023-01-04] MEDS: Naltrexone HCl 50 MG TABLET PO (08:55)
[2023-01-04] MEDS: lamoTRIgine 25 MG TABLET PO ×2 (08:55→21:06)
[2023-01-04] MEDS: Tamsulosin HCL 0.4 MG CAPSULE PO (08:55)
[2023-01-04] MEDS: Gabapentin 300 MG CAPSULE PO ×3 (08:55→21:06)
[2023-01-04] MEDS: calcium polycarbophiL TABLET 1 TAB PO (08:55)
[2023-01-04] MEDS: Venlafaxine HCl ER 75 MG CAP.ER.24H PO (08:55)
[2023-01-04] MEDS: Divalproex Sodium Sprinkles 125 MG CAP.DR.SPR PO ×2 (08:56→21:05)
[2023-01-04] MEDS: Sennosides/Docusate Sodium TABLET 2 TAB PO ×2 (08:56→21:07)
[2023-01-04] MEDS: lamoTRIgine 100 MG TABLET PO ×2 (08:56→21:06)
[2023-01-04] MEDS: amLODIPine Besylate 5 MG TABLET PO (08:56)
[2023-01-04] MEDS: Nystatin Powder 15 GM BOTTLE 1 APPL TOPICAL ×2 (08:57→21:21)
--- NOTE | 2023-01-04 11:18 | P.PNPSI_ITS ---
Subjective Subjective Date of Service: 01/04/23 Reason For Visit: Depression hopelessness irritability Subjective Notes: Conditional Voluntary Interim History: Patient was seen and discussed in rounds today. Records and plans were reviewed. He is awaiting placement. Last evening he complained of chest pain with normal vitals. EKG was done with no findings. This morning after seeing him he again had the same complaint an episode with normal vitals and another EKG was ordered, not done yet. Before this when I saw him 15 minutes earlier he was fine and in no distress. He denies any other complaints. He did complain of chronic anxiety for which Xanax has been quite helpful Medication Compliance: Yes Side effects from medications: No Attending Groups: Yes Review of Systems Review of Systems Chest pain and discomfort Yes all other systems are reviewed and are negative Mental Status Exam Mental Status Exam Patient Orientation: Person, Place, Time and Situation Level of Consciousness: Awake Patient Behavior: Appropriate and Fearful Mood Description: Constricted, Depressed, Anxious, Labile and Apprehensive Affect Description: Fearful and Labile Ability to Follow Directions: Good Speech Pattern: Perseverating Hallucinations: None Delusions: Not Present Thought Process: Rumination Thought Content: positive for Perseveration, positive for Preoccupation, positive for Suicidal Ideation (Denies current plan or intent) and negative for Homicidal Ideation Depressive Symptoms: Increased Anxiety Judgement: Fair Judgement and Insight: Patient triggered by another patient on the unit feels threatened agitated upset does not like how reactive he gets Diagnostics Vital Signs (24Hr): Vital Signs - 24 hr 01/03/23 18:00 Temperature 97.4 F Pulse Rate 71 Respiratory Rate 18 Blood Pressure 114/65 Pulse Oximetry 94 Oxygen Delivery Method Room Air BMI result Body Mass Index 30.2 Labs 11/13/22 07:43 11/12/22 09:32 Imaging Radiology Impressions: ITS Impressions Chest X-Ray 10/20/22 15:45 IMPRESSION: 1. Low lung volumes with bibasilar linear disc atelectasis versus scarring. 2. No airspace consolidation or effusion. Head CT 11/08/22 12:29 IMPRESSION: No acute intracranial hemorrhage or territorial infarction. Stable chronic postoperative changes with gliosis and encephalomalacia in the right frontal and right temporal lobes. Ex vacuo dilatation of the ventricles and diffuse parenchymal volume loss. Right-sided craniotomy changes. Chest X-Ray 11/12/22 10:32 IMPRESSION: Hypoexpanded lungs with bibasilar platelike atelectasis. Brain MRI 11/12/22 13:15 IMPRESSION: 1. No demonstrated acute intracranial abnormalities. 2. Chronic encephalomalacia of the right temporal, right frontal, and left occipital lobes. Small regions of chronic encephalomalacia in the parasagittal aspects of the bilateral parietal lobes. Moderate underlying microangiopathy and generalized cerebral volume loss. Chest X-Ray 11/14/22 15:52 IMPRESSION: Low lung volumes, bibasilar subsegmental atelectasis and slight elevation of the right hemidiaphragm similar to previous exam. Modified Barium Swallow 11/21/22 15:11 IMPRESSION: Laryngeal penetration on several occasions but no laryngeal aspiration. Mild retention of solid food in the valleculae which cleared with subsequent oral administration of water or thin barium. Correlate with speech therapy results. Medications Medications Current Medications Acetaminophen (Acetaminophen 325 Mg Tablet) 650 mg PO Q6H PRN PRN Reason: Headache/Pain Mild Scale (1-3) Last Admin: 01/03/23 21:17 Dose: 650 mg Albuterol Sulfate (Albuterol Sulfate 90 Mcg 8 Gm Inhaler) 2 puff INHALE Q6H PRN PRN Reason: Wheezing Alprazolam (Alprazolam 0.5 Mg Tablet) 0.5 mg PO BEDTIME [facility] Last Admin: 01/03/23 21:14 Dose: 0.5 mg Alprazolam (Alprazolam 0.25 Mg Tablet) 0.25 mg PO Q4H PRN PRN Reason: Anxiety Last Admin: 01/04/23 02:41 Dose: 0.25 mg Amlodipine Besylate (Amlodipine Besylate 5 Mg Tablet) 5 mg PO DAILY [facility]; Protocol Last Admin: 01/04/23 08:56 Dose: 5 mg Bisacodyl (Bisacodyl 10 Mg Supp.Rect) 10 mg DC DAILY PRN PRN Reason: Constipation Divalproex Sodium (Divalproex Sodium Sprinkles 125 Mg ) 125 mg PO BID [facility] Last Admin: 01/04/23 08:56 Dose: 125 mg Gabapentin (Gabapentin 300 Mg Capsule) 300 mg PO TID [facility] Last Admin: 01/04/23 08:55 Dose: 300 mg Guaifenesin/Dextromethorphan (Guaifenesin Dm 200/20/10 Ml 10 Ml Syrup) 10 ml PO Q4H PRN PRN Reason: Cough Last Admin: 11/20/22 05:31 Dose: 10 ml Hydroxyzine HCl (Hydroxyzine Hcl 50 Mg Tablet) 50 mg PO Q4H PRN PRN Reason: Anxiety Last Admin: 01/04/23 00:22 Dose: 50 mg Lamotrigine (Lamotrigine 100 Mg Tablet) 100 mg PO BID [facility] Last Admin: 01/04/23 08:56 Dose: 100 mg Lamotrigine (Lamotrigine 25 Mg Tablet) 25 mg PO BID [facility] Last Admin: 01/04/23 08:55 Dose: 25 mg Latanoprost (Latanoprost 0.005 % Ophth No 2.5 Ml Drops) 1 drop EYE-BOTH BEDTIME [facility] Last Admin: 01/03/23 22:55 Dose: 1 drop Lidocaine (Lidocaine 5 % Ointment 35 Gm) 1 appl TOPICAL QID [facility] Last Admin: 01/04/23 08:56 Dose: Not Given Multi-Ingred Cream/Lotion/Oil/Oint (Mineral Oil/Petrolatum,White 106 Gm Tube) 1 appl TOPICAL BID PRN; Protocol PRN Reason: dry skin Naltrexone HCl (Naltrexone Hcl 50 Mg Tablet) 50 mg PO DAILY [facility] Last Admin: 01/04/23 08:55 Dose: 50 mg Nortriptyline HCl (Nortriptyline Hcl 25 Mg Capsule) 50 mg PO BEDTIME [facility] Last Admin: 01/03/23 21:16 Dose: 50 mg Nystatin (Nystatin Powder 15 Gm Bottle) 1 appl TOPICAL BID [facility]; Protocol Stop: 01/05/23 23:59 Last Admin: 01/04/23 08:57 Dose: 1 appl Olanzapine (Olanzapine 2.5 Mg Tablet) 2.5 mg PO DAILY@1500 [facility] Last Admin: 01/03/23 14:59 Dose: 2.5 mg Olanzapine (Olanzapine 5 Mg Tablet) 5 mg PO BEDTIME [facility] Last Admin: 01/03/23 21:17 Dose: 5 mg Ondansetron HCl (Ondansetron Odt 4 Mg Tab.Rapdis) 4 mg TRANSLINGU Q6H PRN PRN Reason: Nausea and Vomiting Last Admin: 12/17/22 12:26 Dose: 4 mg Polyethylene Glycol (Polyethylene Glycol 3350 17 Gm Powd.Pack) 17 gm PO DAILY@1600 [facility] Last Admin: 01/03/23 17:03 Dose: Not Given Senna/Docusate Sodium (Sennosides/Docusate Sodium Tablet) 2 tab PO BID [facility] Last Admin: 01/04/23 08:56 Dose: 2 tab Sodium Biphosphate/Sodium Phosphate (Sodium Phosphate,[place]-Dibasic 133 Ml Enema) 133 ml DC ONCE PRN PRN Reason: Constipation Tamsulosin HCl (Tamsulosin Hcl 0.4 Mg Capsule) 0.4 mg PO DAILY [facility] Last Admin: 01/04/23 08:55 Dose: 0.4 mg Trazodone HCl (Trazodone Hcl 100 Mg Tablet) 200 mg PO BEDTIME [facility] Last Admin: 01/03/23 21:17 Dose: 200 mg Venlafaxine HCl (Venlafaxine Hcl Er 75 Mg Cap.Er.24h) 75 mg PO DAILY [facility] Last Admin: 01/04/23 08:55 Dose: 75 mg Allergies Allergies Allergy/AdvReac Type Severity Reaction Status Date / Time fentanyl [FENTANYL] Allergy Intermediate unknown Verified 04/08/22 07:00 Assessment & Plan Assessment & Plan (1) Cognitive and neurobehavioral dysfunction following brain injury: Status: Acute Code(s): G31.89 - Other specified degenerative diseases of nervous system; F09 - Unspecified mental disorder due to known physiological condition; S06.9X9S - Unspecified intracranial injury with loss of consciousness of unspecified duration, sequela (2) Major depressive disorder, recurrent severe without psychotic features: Status: Acute Code(s): F33.2 - Major depressive disorder, recurrent severe without psychotic features (3) Swallowing dysfunction: Status: Acute Code(s): R13.10 - Dysphagia, unspecified Plan Patient seems minimally less labile with olanzapine during the day and alprazolam to decrease irritability reactivity monitor for over sedation continue discharge planning Encourage daily strength training lower Effexor to 75 mg in case it is overly stimulating the patient to increased reactivity 01/03: Continue current regimen and plans 01/04 continue current regimen and plans. EKG to be done this morning Reason for contiued inpatient stay Substantial Risk for: med/psych decompensation Time Spent With Patient Time: Total time managing care of this patient today ____ minutes.
[2023-01-04] MEDS: OLANZapine 2.5 MG TABLET PO (15:54)
[2023-01-04] MEDS: polyethylene glycoL 3350 17 GM POWD.PACK PO (16:00)
[2023-01-04 18:00] VITALS: BP 122/71; PULSE 79; RESP 18; TEMP 36.7; O2SAT 98
[2023-01-04] MEDS: ALPRAZolam 0.5 MG TABLET PO (21:05)
[2023-01-04] MEDS: Nortriptyline HCl 25 MG CAPSULE 50 MG PO (21:06)
[2023-01-04] MEDS: Acetaminophen 325 MG TABLET 650 MG PO (21:07)
[2023-01-04] MEDS: traZODone HCL 100 MG TABLET 200 MG PO (21:07)
[2023-01-04] MEDS: OLANZapine 5 MG TABLET PO (21:07)
[2023-01-04] MEDS: Lidocaine 5 % Ointment 35 GM 1 APPL TOPICAL (21:21)
[2023-01-04] MEDS: Latanoprost 0.005 % Ophth Sol 2.5 ML DROPS 1 DROP EYE-BOTH (21:21)
[2023-01-05 09:16] VITALS: BP 116/71; PULSE 96; RESP 18; O2SAT 97
[2023-01-05] MEDS: lamoTRIgine 25 MG TABLET PO ×2 (09:17→22:04)
[2023-01-05] MEDS: lamoTRIgine 100 MG TABLET PO ×2 (09:17→22:06)
[2023-01-05] MEDS: Divalproex Sodium Sprinkles 125 MG CAP.DR.SPR PO ×2 (09:17→22:33)
[2023-01-05] MEDS: Tamsulosin HCL 0.4 MG CAPSULE PO (09:17)
[2023-01-05] MEDS: Naltrexone HCl 50 MG TABLET PO (09:17)
[2023-01-05] MEDS: Gabapentin 300 MG CAPSULE PO ×3 (09:18→22:05)
[2023-01-05] MEDS: amLODIPine Besylate 5 MG TABLET PO (09:18)
[2023-01-05] MEDS: Venlafaxine HCl ER 75 MG CAP.ER.24H PO (09:18)
[2023-01-05] MEDS: Sennosides/Docusate Sodium TABLET 2 TAB PO ×2 (09:18→22:05)
--- NOTE | 2023-01-05 09:58 | P.PNPSI_ITS ---
Subjective Subjective Date of Service: 01/05/23 Reason For Visit: Depression hopelessness irritability Subjective Notes: Conditional Voluntary Interim History: Patient was seen and discussed in rounds today. Records and plans were reviewed. He is awaiting placement. Yesterday morning after rounds he complained of chest pain and discomfort and some diaphoresis. EKG did not indicate any changes. The pain subsided after short time. Today he denies any symptoms except for some back pain which is not new. He is eating and sleeping adequately. Complains of chronic anxiety. He is having bowel movements. No changes were made today Medication Compliance: Yes Side effects from medications: No Attending Groups: Yes Review of Systems Review of Systems Chest pain and discomfort Yes all other systems are reviewed and are negative Diagnostics Vital Signs (24Hr): Vital Signs - 24 hr 01/04/23 18:00 01/05/23 09:16 Temperature 98.1 F Pulse Rate 79 96 Respiratory Rate 18 18 Blood Pressure 122/71 116/71 Pulse Oximetry 98 97 Oxygen Delivery Method Room Air Room Air BMI result Body Mass Index 30.2 Labs 11/13/22 07:43 11/12/22 09:32 Imaging Radiology Impressions: ITS Impressions Chest X-Ray 10/20/22 15:45 IMPRESSION: 1. Low lung volumes with bibasilar linear disc atelectasis versus scarring. 2. No airspace consolidation or effusion. Head CT 11/08/22 12:29 IMPRESSION: No acute intracranial hemorrhage or territorial infarction. Stable chronic postoperative changes with gliosis and encephalomalacia in the right frontal and right temporal lobes. Ex vacuo dilatation of the ventricles and diffuse parenchymal volume loss. Right-sided craniotomy changes. Chest X-Ray 11/12/22 10:32 IMPRESSION: Hypoexpanded lungs with bibasilar platelike atelectasis. Brain MRI 11/12/22 13:15 IMPRESSION: 1. No demonstrated acute intracranial abnormalities. 2. Chronic encephalomalacia of the right temporal, right frontal, and left occipital lobes. Small regions of chronic encephalomalacia in the parasagittal aspects of the bilateral parietal lobes. Moderate underlying microangiopathy and generalized cerebral volume loss. Chest X-Ray 11/14/22 15:52 IMPRESSION: Low lung volumes, bibasilar subsegmental atelectasis and slight elevation of the right hemidiaphragm similar to previous exam. Modified Barium Swallow 11/21/22 15:11 IMPRESSION: Laryngeal penetration on several occasions but no laryngeal aspiration. Mild retention of solid food in the valleculae which cleared with subsequent oral administration of water or thin barium. Correlate with speech therapy results. Medications Medications Current Medications Acetaminophen (Acetaminophen 325 Mg Tablet) 650 mg PO Q6H PRN PRN Reason: Headache/Pain Mild Scale (1-3) Last Admin: 01/04/23 21:07 Dose: 650 mg Albuterol Sulfate (Albuterol Sulfate 90 Mcg 8 Gm Inhaler) 2 puff INHALE Q6H PRN PRN Reason: Wheezing Alprazolam (Alprazolam 0.5 Mg Tablet) 0.5 mg PO BEDTIME [facility] Last Admin: 01/04/23 21:05 Dose: 0.5 mg Alprazolam (Alprazolam 0.25 Mg Tablet) 0.25 mg PO Q4H PRN PRN Reason: Anxiety Last Admin: 01/04/23 16:00 Dose: 0.25 mg Amlodipine Besylate (Amlodipine Besylate 5 Mg Tablet) 5 mg PO DAILY [facility]; Protocol Last Admin: 01/05/23 09:18 Dose: 5 mg Bisacodyl (Bisacodyl 10 Mg Supp.Rect) 10 mg [place] DAILY PRN PRN Reason: Constipation Divalproex Sodium (Divalproex Sodium Sprinkles 125 Mg ) 125 mg PO BID [facility] Last Admin: 01/05/23 09:17 Dose: 125 mg Gabapentin (Gabapentin 300 Mg Capsule) 300 mg PO TID [facility] Last Admin: 01/05/23 09:18 Dose: 300 mg Guaifenesin/Dextromethorphan (Guaifenesin Dm 200/20/10 Ml 10 Ml Syrup) 10 ml PO Q4H PRN PRN Reason: Cough Last Admin: 11/20/22 05:31 Dose: 10 ml Hydroxyzine HCl (Hydroxyzine Hcl 50 Mg Tablet) 50 mg PO Q4H PRN PRN Reason: Anxiety Last Admin: 01/04/23 00:22 Dose: 50 mg Lamotrigine (Lamotrigine 100 Mg Tablet) 100 mg PO BID [facility] Last Admin: 01/05/23 09:17 Dose: 100 mg Lamotrigine (Lamotrigine 25 Mg Tablet) 25 mg PO BID [facility] Last Admin: 01/05/23 09:17 Dose: 25 mg Latanoprost (Latanoprost 0.005 % Ophth No 2.5 Ml Drops) 1 drop EYE-BOTH BEDTIME [facility] Last Admin: 01/04/23 21:21 Dose: 1 drop Lidocaine (Lidocaine 5 % Ointment 35 Gm) 1 appl TOPICAL QID [facility] Last Admin: 01/04/23 21:21 Dose: 1 appl Multi-Ingred Cream/Lotion/Oil/Oint (Mineral Oil/Petrolatum,White 106 Gm Tube) 1 appl TOPICAL BID PRN; Protocol PRN Reason: dry skin Naltrexone HCl (Naltrexone Hcl 50 Mg Tablet) 50 mg PO DAILY [facility] Last Admin: 01/05/23 09:17 Dose: 50 mg Nortriptyline HCl (Nortriptyline Hcl 25 Mg Capsule) 50 mg PO BEDTIME [facility] Last Admin: 01/04/23 21:06 Dose: 50 mg Nystatin (Nystatin Powder 15 Gm Bottle) 1 appl TOPICAL BID [facility]; Protocol Stop: 01/05/23 23:59 Last Admin: 01/04/23 21:21 Dose: 1 appl Olanzapine (Olanzapine 2.5 Mg Tablet) 2.5 mg PO DAILY@1500 [facility] Last Admin: 01/04/23 15:54 Dose: 2.5 mg Olanzapine (Olanzapine 5 Mg Tablet) 5 mg PO BEDTIME [facility] Last Admin: 01/04/23 21:07 Dose: 5 mg Ondansetron HCl (Ondansetron Odt 4 Mg Tab.Rapdis) 4 mg TRANSLINGU Q6H PRN PRN Reason: Nausea and Vomiting Last Admin: 12/17/22 12:26 Dose: 4 mg Polyethylene Glycol (Polyethylene Glycol 3350 17 Gm Powd.Pack) 17 gm PO DAILY@1600 [facility] Last Admin: 01/04/23 16:00 Dose: 17 gm Senna/Docusate Sodium (Sennosides/Docusate Sodium Tablet) 2 tab PO BID [facility] Last Admin: 01/05/23 09:18 Dose: 2 tab Sodium Biphosphate/Sodium Phosphate (Sodium Phosphate,[place]-Dibasic 133 Ml Enema) 133 ml [place] ONCE PRN PRN Reason: Constipation Tamsulosin HCl (Tamsulosin Hcl 0.4 Mg Capsule) 0.4 mg PO DAILY [facility] Last Admin: 01/05/23 09:17 Dose: 0.4 mg Trazodone HCl (Trazodone Hcl 100 Mg Tablet) 200 mg PO BEDTIME [facility] Last Admin: 01/04/23 21:07 Dose: 200 mg Venlafaxine HCl (Venlafaxine Hcl Er 75 Mg Cap.Er.24h) 75 mg PO DAILY [facility] Last Admin: 01/05/23 09:18 Dose: 75 mg Allergies Allergies Allergy/AdvReac Type Severity Reaction Status Date / Time fentanyl [FENTANYL] Allergy Intermediate unknown Verified 04/08/22 07:00 Assessment & Plan Assessment & Plan (1) Cognitive and neurobehavioral dysfunction following brain injury: Status: Acute Code(s): G31.89 - Other specified degenerative diseases of nervous system; F09 - Unspecified mental disorder due to known physiological condition; S06.9X9S - Unspecified intracranial injury with loss of consciousness of unspecified duration, sequela (2) Major depressive disorder, recurrent severe without psychotic features: Status: Acute Code(s): F33.2 - Major depressive disorder, recurrent severe without psychotic features (3) Swallowing dysfunction: Status: Acute Code(s): R13.10 - Dysphagia, unspecified Plan Patient seems minimally less labile with olanzapine during the day and alprazolam to decrease irritability reactivity monitor for over sedation continue discharge planning Encourage daily strength training lower Effexor to 75 mg in case it is overly stimulating the patient to increased reactivity Start Depakote 125 mg twice a day will start gradually for mood instability 01/05: Continue current plans and regimen Reason for contiued inpatient stay Substantial Risk for: med/psych decompensation Time Spent With Patient Time: Total time managing care of this patient today ____ minutes.
[2023-01-05] MEDS: Nystatin Powder 15 GM BOTTLE 1 APPL TOPICAL ×2 (10:59→22:03)
[2023-01-05] MEDS: OLANZapine 2.5 MG TABLET PO (15:06)
[2023-01-05] MEDS: polyethylene glycoL 3350 17 GM POWD.PACK PO (15:06)
[2023-01-05] MEDS: ALPRAZolam 0.25 MG TABLET PO (15:40)
--- NOTE | 2023-01-05 16:20 | MHC.SL.SWA ---
Addendum entered and electronically signed by Maddy Harris MA, CCC-[employer] 01/05/23 16:21: Edit- REFER TO [facility] [place] DEC 08* Original Note: Speech Pathologist Impression: Oropharyngeal dysphagia Risk of Aspiration Due to: Neurological Condition Reduced Cognition Dysphasia Diet Status: Recommend upgrade diet to REGULAR, continue with thin liquids, pills whole in with liquid for a trial period of one week, to allow patient to make informed, elective choices about food consistent with swallowing needs. Continue with swallowing precautions as outlined, provide periodic supervision during all meals, recommend Tx from [employer] M-F X1/day during trial period. Advised MD/RD of plan/recommendations by secure text. Liquid Consistency and Strategies for Safe Swallow: Liquid Intake Recommendation: Thin Liquid Intake Strategies: No Straws Double Swallow Solid Food Consistency: Dietary Recommendations: Regular Additional Modifications to Solid Foods: Cue patient to double swallow (dry swallow), particularly on sticky or harder to chew consistencies. Alternate liquids and solids. Oral Medication Intake: Whole with Liquid Please contact the pharmacy regarding appropriate crushable or liquid drug formulations that are available whenever modified delivery is recommended. Compensatory Strategies and Precautions to be Taken for Safe Swallow: Sitting Upright (90 deg) Double Swallow No Straw Small Bites and Sips Alternate Liquids/Solids Rate of Ingestion Change Avoid Specific Foods Supervision While Eating and Drinking for Safe Swallow: Intermittent Supervision Foods to Avoid: Hard to chew solids (e.g. solid pieces of meat), dry consistencies that break into pieces (e.g. cookies, crackers, chips, nuts), mixed solid consistencies that require ample chewing (e.g. green salads), rice. Swallowing Recommended Treatments: Compens. Strategy Educat. Recommendation for Speech: Inpatient Speech Therapy *REFER TO [facility] [place] OCT 2022* Printing Plate Maker Clinican/Clinical Fellow: No Supervisory Statement: I have reviewed and agree with the student/clinical fellow's documentation: N/A Speech Language Pathologist: Maddy Harris M.A., CCC-[employer]
[2023-01-05 21:10] VITALS: BP 167/74; PULSE 71; RESP 18; TEMP 35.7; O2SAT 94
[2023-01-05] MEDS: Nortriptyline HCl 25 MG CAPSULE 50 MG PO (22:03)
[2023-01-05] MEDS: Lidocaine 5 % Ointment 35 GM 1 APPL TOPICAL (22:03)
[2023-01-05] MEDS: traZODone HCL 100 MG TABLET 200 MG PO (22:05)
[2023-01-05] MEDS: OLANZapine 5 MG TABLET PO (22:05)
[2023-01-05] MEDS: Latanoprost 0.005 % Ophth Sol 2.5 ML DROPS 1 DROP EYE-BOTH (22:08)
[2023-01-06 07:30] VITALS: BP 148/60; PULSE 91; RESP 16; TEMP 36.6; O2SAT 92
[2023-01-06] MEDS: Gabapentin 300 MG CAPSULE PO (08:21)
[2023-01-06] MEDS: Sennosides/Docusate Sodium TABLET 2 TAB PO ×2 (08:21→21:40)
[2023-01-06] MEDS: lamoTRIgine 25 MG TABLET PO (08:21)
[2023-01-06] MEDS: Venlafaxine HCl ER 75 MG CAP.ER.24H PO (08:21)
[2023-01-06] MEDS: Naltrexone HCl 50 MG TABLET PO (08:21)
[2023-01-06] MEDS: lamoTRIgine 100 MG TABLET PO ×2 (08:21→21:41)
[2023-01-06] MEDS: Divalproex Sodium Sprinkles 125 MG CAP.DR.SPR PO ×3 (08:21→21:40)
[2023-01-06] MEDS: amLODIPine Besylate 5 MG TABLET PO (08:21)
[2023-01-06] MEDS: Tamsulosin HCL 0.4 MG CAPSULE PO (08:21)
[2023-01-06] MEDS: ALPRAZolam 0.25 MG TABLET PO (11:29)
[2023-01-06] MEDS: Acetaminophen 325 MG TABLET 650 MG PO (11:29)
--- NOTE | 2023-01-06 13:14 | HO.PSYCHPN ---
Subjective Subjective Date of Service: 01/07/23 Reason For Visit: Depression hopelessness irritability Subjective Notes: Conditional Voluntary Healthcare Proxy: No Medical Problems Affecting Mental Status: No Interim History: The patient states he feels better on Depakote Medication Compliance: Yes Attending Groups: Intermittent Mental Status Exam Mental Status Exam Patient Orientation: Person, Place, Time and Situation Level of Consciousness: Awake Patient Behavior: Appropriate Mood Description: Constricted, Anxious and Apprehensive Affect Description: Constricted and Apprehensive Ability to Follow Directions: Good Speech Pattern: Perseverating Memory Description: Episodic Impaired and Working Impaired Hallucinations: None Delusions: Not Present Thought Process: Rumination Thought Content: positive for Perseveration, positive for Preoccupation, positive for Suicidal Ideation (Denies current plan or intent) and negative for Homicidal Ideation Depressive Symptoms: Increased Anxiety Judgement: Fair Judgement and Insight: Reports improved mood less reactivity Diagnostics Vital Signs (24Hr): Vital Signs - 24 hr 01/05/23 21:10 01/06/23 07:30 Temperature 96.3 F L 97.9 F Pulse Rate 71 91 Respiratory Rate 18 16 Blood Pressure 167/74 H 148/60 H Pulse Oximetry 94 92 Oxygen Delivery Method Room Air Room Air BMI result Body Mass Index 30.2 Labs 11/13/22 07:43 11/12/22 09:32 Imaging Radiology Impressions: ITS Impressions Chest X-Ray 10/20/22 15:45 IMPRESSION: 1. Low lung volumes with bibasilar linear disc atelectasis versus scarring. 2. No airspace consolidation or effusion. Head CT 11/08/22 12:29 IMPRESSION: No acute intracranial hemorrhage or territorial infarction. Stable chronic postoperative changes with gliosis and encephalomalacia in the right frontal and right temporal lobes. Ex vacuo dilatation of the ventricles and diffuse parenchymal volume loss. Right-sided craniotomy changes. Chest X-Ray 11/12/22 10:32 IMPRESSION: Hypoexpanded lungs with bibasilar platelike atelectasis. Brain MRI 11/12/22 13:15 IMPRESSION: 1. No demonstrated acute intracranial abnormalities. 2. Chronic encephalomalacia of the right temporal, right frontal, and left occipital lobes. Small regions of chronic encephalomalacia in the parasagittal aspects of the bilateral parietal lobes. Moderate underlying microangiopathy and generalized cerebral volume loss. Chest X-Ray 11/14/22 15:52 IMPRESSION: Low lung volumes, bibasilar subsegmental atelectasis and slight elevation of the right hemidiaphragm similar to previous exam. Modified Barium Swallow 11/21/22 15:11 IMPRESSION: Laryngeal penetration on several occasions but no laryngeal aspiration. Mild retention of solid food in the valleculae which cleared with subsequent oral administration of water or thin barium. Correlate with speech therapy results. Medications Medications Current Medications Acetaminophen (Acetaminophen 325 Mg Tablet) 650 mg PO Q6H PRN PRN Reason: Headache/Pain Mild Scale (1-3) Last Admin: 01/06/23 11:29 Dose: 650 mg Albuterol Sulfate (Albuterol Sulfate 90 Mcg 8 Gm Inhaler) 2 puff INHALE Q6H PRN PRN Reason: Wheezing Alprazolam (Alprazolam 0.25 Mg Tablet) 0.25 mg PO Q4H PRN PRN Reason: Anxiety Last Admin: 01/06/23 11:29 Dose: 0.25 mg Amlodipine Besylate (Amlodipine Besylate 5 Mg Tablet) 5 mg PO DAILY [facility]; Protocol Last Admin: 01/06/23 08:21 Dose: 5 mg Bisacodyl (Bisacodyl 10 Mg Supp.Rect) 10 mg [place] DAILY PRN PRN Reason: Constipation Divalproex Sodium (Divalproex Sodium Sprinkles 125 Mg ) 125 mg PO BID [facility] Last Admin: 01/06/23 08:21 Dose: 125 mg Gabapentin (Gabapentin 300 Mg Capsule) 300 mg PO TID [facility] Last Admin: 01/06/23 08:21 Dose: 300 mg Guaifenesin/Dextromethorphan (Guaifenesin Dm 200/20/10 Ml 10 Ml Syrup) 10 ml PO Q4H PRN PRN Reason: Cough Last Admin: 11/20/22 05:31 Dose: 10 ml Hydroxyzine HCl (Hydroxyzine Hcl 50 Mg Tablet) 50 mg PO Q4H PRN PRN Reason: Anxiety Last Admin: 01/04/23 00:22 Dose: 50 mg Lamotrigine (Lamotrigine 100 Mg Tablet) 100 mg PO BID [facility] Last Admin: 01/06/23 08:21 Dose: 100 mg Lamotrigine (Lamotrigine 25 Mg Tablet) 25 mg PO BID [facility] Last Admin: 01/06/23 08:21 Dose: 25 mg Latanoprost (Latanoprost 0.005 % Ophth No 2.5 Ml Drops) 1 drop EYE-BOTH BEDTIME [facility] Last Admin: 01/05/23 22:08 Dose: 1 drop Lidocaine (Lidocaine 5 % Ointment 35 Gm) 1 appl TOPICAL QID [facility] Last Admin: 01/06/23 08:22 Dose: Not Given Multi-Ingred Cream/Lotion/Oil/Oint (Mineral Oil/Petrolatum,White 106 Gm Tube) 1 appl TOPICAL BID PRN; Protocol PRN Reason: dry skin Nortriptyline HCl (Nortriptyline Hcl 25 Mg Capsule) 50 mg PO BEDTIME [facility] Last Admin: 01/05/23 22:03 Dose: 50 mg Olanzapine (Olanzapine 2.5 Mg Tablet) 2.5 mg PO DAILY@1500 [facility] Last Admin: 01/05/23 15:06 Dose: 2.5 mg Olanzapine (Olanzapine 5 Mg Tablet) 5 mg PO BEDTIME [facility] Last Admin: 01/05/23 22:05 Dose: 5 mg Ondansetron HCl (Ondansetron Odt 4 Mg Tab.Rapdis) 4 mg TRANSLINGU Q6H PRN PRN Reason: Nausea and Vomiting Last Admin: 12/17/22 12:26 Dose: 4 mg Polyethylene Glycol (Polyethylene Glycol 3350 17 Gm Powd.Pack) 17 gm PO DAILY@1600 [facility] Last Admin: 01/05/23 15:06 Dose: 17 gm Senna/Docusate Sodium (Sennosides/Docusate Sodium Tablet) 2 tab PO BID [facility] Last Admin: 01/06/23 08:21 Dose: 2 tab Sodium Biphosphate/Sodium Phosphate (Sodium Phosphate,[place]-Dibasic 133 Ml Enema) 133 ml [place] ONCE PRN PRN Reason: Constipation Tamsulosin HCl (Tamsulosin Hcl 0.4 Mg Capsule) 0.4 mg PO DAILY [facility] Last Admin: 01/06/23 08:21 Dose: 0.4 mg Trazodone HCl (Trazodone Hcl 100 Mg Tablet) 200 mg PO BEDTIME [facility] Last Admin: 01/05/23 22:05 Dose: 200 mg Venlafaxine HCl (Venlafaxine Hcl Er 75 Mg Cap.Er.24h) 75 mg PO DAILY [facility] Last Admin: 01/06/23 08:21 Dose: 75 mg Allergies Allergies Allergy/AdvReac Type Severity Reaction Status Date / Time fentanyl [FENTANYL] Allergy Intermediate unknown Verified 04/08/22 07:00 Assessment & Plan Assessment & Plan (1) Cognitive and neurobehavioral dysfunction following brain injury: Status: Acute Code(s): G31.89 - Other specified degenerative diseases of nervous system; F09 - Unspecified mental disorder due to known physiological condition; S06.9X9S - Unspecified intracranial injury with loss of consciousness of unspecified duration, sequela (2) Major depressive disorder, recurrent severe without psychotic features: Status: Acute Code(s): F33.2 - Major depressive disorder, recurrent severe without psychotic features (3) Swallowing dysfunction: Status: Acute Code(s): R13.10 - Dysphagia, unspecified Plan Patient seems minimally less labile with olanzapine during the day and alprazolam to decrease irritability reactivity monitor for over sedation continue discharge planning Encourage daily strength training lower Effexor to 75 mg in case it is overly stimulating the patient to increased reactivity Start Depakote 125 mg twice a day will start gradually for mood instability 01/05: Continue current plans and regimen 01/06/2022 Patient feels better on Depakote increase Depakote to 125 t.i.d. lower Lamictal Reason for contiued inpatient stay Substantial Risk for: inability to function and rapid decompensation Time Spent With Patient Time: Total time managing care of this patient today ____ minutes.
--- NOTE | 2023-01-06 14:13 | MHC.SL.SWA ---
Speech Pathologist Impression: Risk of Aspiration Due to: Neurological Condition Reduced Cognition Dysphasia Diet Status: Recommend continue with REGULAR diet, continue with thin liquids, pills whole in with liquid for a trial period of one week, to allow patient to make informed, elective choices about food consistent with swallowing needs. Continue with swallowing precautions as outlined, provide periodic supervision during all meals, recommend Tx from [employer] M-F X1/day during trial period. Liquid Consistency and Strategies for Safe Swallow: Liquid Intake Recommendation: Thin Liquid Intake Strategies: No Straws Double Swallow Solid Food Consistency: Dietary Recommendations: Regular Additional Modifications to Solid Foods: Cue patient to double swallow (dry swallow), particularly on sticky or harder to chew consistencies. Alternate liquids and solids. Oral Medication Intake: Whole with Liquid Please contact the pharmacy regarding appropriate crushable or liquid drug formulations that are available whenever modified delivery is recommended. Compensatory Strategies and Precautions to be Taken for Safe Swallow: Sitting Upright (90 deg) Double Swallow No Straw Small Bites and Sips Alternate Liquids/Solids Rate of Ingestion Change Avoid Specific Foods Supervision While Eating and Drinking for Safe Swallow: Intermittent Supervision Foods to Avoid: Hard to chew solids (e.g. solid pieces of meat), dry consistencies that break into pieces (e.g. cookies, crackers, chips, nuts), mixed solid consistencies that require ample chewing (e.g. green salads), rice. Swallowing Recommended Treatments: Compens. Strategy Educat. Recommendation for Speech: Inpatient Speech Therapy Comment: Pt seen at lunch for appropriate food choices and toleration of current unrestricted diet and ongoing education re: Swallowing needs. Patient yesterday requested that [employer] do quick check ins only, so time was limited for this session. Patient was eating a chicken salad sandwich on soft bread, had brownie for dessert, and ice tea to drink. Patient was praised for choices which are all appropriate consistencies for needs. Patient was given a handout listing types of foods and consistencies that are safe and appropriate, as well as foods to avoid. Patient was pleasant and polite at this interaction, but minimally engaged with the STATE [employer]. Patient is making good progress, though on choices and managing swallowing needs with an unrestricted diet from which he can elect foods. Will continue to follow. Frequency/Duration: Date Range for Service Req: Timeline to reassess: [employer]c Controls Engineer Clinican/Clinical Fellow: No Supervisory Statement: I have reviewed and agree with the student/clinical fellow's documentation: N/A Speech Language Pathologist: Maddy Harris M.A., CCC-[employer]
[2023-01-06] MEDS: Gabapentin 100 MG CAPSULE PO ×2 (15:00→21:40)
[2023-01-06] MEDS: OLANZapine 2.5 MG TABLET PO (15:00)
[2023-01-06] MEDS: polyethylene glycoL 3350 17 GM POWD.PACK PO (17:21)
[2023-01-06 18:00] VITALS: BP 124/63; PULSE 79; RESP 17; TEMP 36.3; O2SAT 92
[2023-01-06] MEDS: traZODone HCL 100 MG TABLET 200 MG PO (21:40)
[2023-01-06] MEDS: Nortriptyline HCl 25 MG CAPSULE 50 MG PO (21:40)
[2023-01-06] MEDS: OLANZapine 5 MG TABLET PO (21:41)
[2023-01-06] MEDS: Lidocaine 5 % Ointment 35 GM 1 APPL TOPICAL (22:08)
[2023-01-07] MEDS: Acetaminophen 325 MG TABLET 650 MG PO ×2 (01:27→08:35)
[2023-01-07] MEDS: hydrOXYzine HCL 50 MG TABLET PO (01:32)
[2023-01-07 06:00] VITALS: BP 162/78; PULSE 68; RESP 16; TEMP 35.9; O2SAT 97
[2023-01-07] MEDS: amLODIPine Besylate 5 MG TABLET PO (08:26)
[2023-01-07] MEDS: Divalproex Sodium Sprinkles 125 MG CAP.DR.SPR PO (08:26)
[2023-01-07] MEDS: Gabapentin 100 MG CAPSULE PO ×3 (08:27→21:20)
[2023-01-07] MEDS: Venlafaxine HCl ER 75 MG CAP.ER.24H PO (08:27)
[2023-01-07] MEDS: Sennosides/Docusate Sodium TABLET 2 TAB PO ×2 (08:27→21:21)
[2023-01-07] MEDS: Tamsulosin HCL 0.4 MG CAPSULE PO (08:27)
[2023-01-07] MEDS: lamoTRIgine 100 MG TABLET PO ×2 (08:28→21:20)
[2023-01-07 09:59] LABS: Influenza A PCR NEGATIVE (Negative); Influenza B PCR NEGATIVE (Negative); Resp Syncy Virus RNA Qual PCR NEGATIVE (Negative); SARS COV2 PCR INHOUSE NEGATIVE (Negative)
[2023-01-07] MEDS: ALPRAZolam 0.25 MG TABLET PO (12:28)
--- NOTE | 2023-01-07 13:21 | HO.PSYCHPN ---
Subjective Subjective Date of Service: 01/07/23 Reason For Visit: Depression hopelessness irritability Subjective Notes: Conditional Voluntary Interim History: Patient continues to have anxiety gradually improving Medication Compliance: Yes Mental Status Exam Mental Status Exam Patient Orientation: Person, Place, Time and Situation Level of Consciousness: Awake Patient Behavior: Appropriate Mood Description: Constricted, Anxious and Apprehensive Affect Description: Constricted and Apprehensive Ability to Follow Directions: Good Speech Pattern: Perseverating Memory Description: Episodic Impaired and Working Impaired Hallucinations: None Delusions: Not Present Thought Process: Rumination Thought Content: positive for Perseveration, positive for Preoccupation, positive for Suicidal Ideation (Denies current plan or intent) and negative for Homicidal Ideation Depressive Symptoms: Increased Anxiety Judgement: Fair Judgement and Insight: Reports improved mood less reactivity Diagnostics Vital Signs (24Hr): Vital Signs - 24 hr 01/06/23 18:00 01/07/23 06:00 Temperature 97.3 F 96.7 F L Pulse Rate 79 68 Respiratory Rate 17 16 Blood Pressure 124/63 162/78 H Pulse Oximetry 92 97 Oxygen Delivery Method Room Air Room Air BMI result Body Mass Index 30.2 Labs 11/13/22 07:43 11/12/22 09:32 Labs: Laboratory Results - last 48 hr 01/07/23 09:00 Influenza Type A (PCR) NEGATIVE Influenza Type B (PCR) NEGATIVE RSV RNA Qual (PCR) NEGATIVE SARS-CoV-2 RNA (RT-PCR) NEGATIVE Imaging Radiology Impressions: ITS Impressions Chest X-Ray 10/20/22 15:45 IMPRESSION: 1. Low lung volumes with bibasilar linear disc atelectasis versus scarring. 2. No airspace consolidation or effusion. Head CT 11/08/22 12:29 IMPRESSION: No acute intracranial hemorrhage or territorial infarction. Stable chronic postoperative changes with gliosis and encephalomalacia in the right frontal and right temporal lobes. Ex vacuo dilatation of the ventricles and diffuse parenchymal volume loss. Right-sided craniotomy changes. Chest X-Ray 11/12/22 10:32 IMPRESSION: Hypoexpanded lungs with bibasilar platelike atelectasis. Brain MRI 11/12/22 13:15 IMPRESSION: 1. No demonstrated acute intracranial abnormalities. 2. Chronic encephalomalacia of the right temporal, right frontal, and left occipital lobes. Small regions of chronic encephalomalacia in the parasagittal aspects of the bilateral parietal lobes. Moderate underlying microangiopathy and generalized cerebral volume loss. Chest X-Ray 11/14/22 15:52 IMPRESSION: Low lung volumes, bibasilar subsegmental atelectasis and slight elevation of the right hemidiaphragm similar to previous exam. Modified Barium Swallow 11/21/22 15:11 IMPRESSION: Laryngeal penetration on several occasions but no laryngeal aspiration. Mild retention of solid food in the valleculae which cleared with subsequent oral administration of water or thin barium. Correlate with speech therapy results. Medications Medications Current Medications Acetaminophen (Acetaminophen 325 Mg Tablet) 650 mg PO Q6H PRN PRN Reason: Headache/Pain Mild Scale (1-3) Last Admin: 01/07/23 08:35 Dose: 650 mg Albuterol Sulfate (Albuterol Sulfate 90 Mcg 8 Gm Inhaler) 2 puff INHALE Q6H PRN PRN Reason: Wheezing Alprazolam (Alprazolam 0.25 Mg Tablet) 0.25 mg PO Q4H PRN PRN Reason: Anxiety Last Admin: 01/07/23 12:28 Dose: 0.25 mg Alprazolam (Alprazolam 0.5 Mg Tablet) 0.5 mg PO BEDTIME [facility] Amlodipine Besylate (Amlodipine Besylate 5 Mg Tablet) 5 mg PO DAILY [facility]; Protocol Last Admin: 01/07/23 08:26 Dose: 5 mg Bisacodyl (Bisacodyl 10 Mg Supp.Rect) 10 mg [place] DAILY PRN PRN Reason: Constipation Divalproex Sodium (Divalproex Sodium Sprinkles 125 Mg ) 125 mg PO TID [facility] Last Admin: 01/07/23 08:26 Dose: 125 mg Gabapentin (Gabapentin 100 Mg Capsule) 100 mg PO TID [facility] Last Admin: 01/07/23 08:27 Dose: 100 mg Guaifenesin/Dextromethorphan (Guaifenesin Dm 200/20/10 Ml 10 Ml Syrup) 10 ml PO Q4H PRN PRN Reason: Cough Last Admin: 11/20/22 05:31 Dose: 10 ml Hydroxyzine HCl (Hydroxyzine Hcl 50 Mg Tablet) 50 mg PO Q4H PRN PRN Reason: Anxiety Last Admin: 01/07/23 01:32 Dose: 50 mg Lamotrigine (Lamotrigine 100 Mg Tablet) 100 mg PO BID [facility] Last Admin: 01/07/23 08:28 Dose: 100 mg Latanoprost (Latanoprost 0.005 % Ophth No 2.5 Ml Drops) 1 drop EYE-BOTH BEDTIME [facility] Last Admin: 01/06/23 21:41 Dose: Not Given Lidocaine (Lidocaine 5 % Ointment 35 Gm) 1 appl TOPICAL QID [facility] Last Admin: 01/07/23 12:29 Dose: Not Given Multi-Ingred Cream/Lotion/Oil/Oint (Mineral Oil/Petrolatum,White 106 Gm Tube) 1 appl TOPICAL BID PRN; Protocol PRN Reason: dry skin Nortriptyline HCl (Nortriptyline Hcl 25 Mg Capsule) 50 mg PO BEDTIME [facility] Last Admin: 01/06/23 21:40 Dose: 50 mg Olanzapine (Olanzapine 2.5 Mg Tablet) 2.5 mg PO DAILY@1500 [facility] Last Admin: 01/06/23 15:00 Dose: 2.5 mg Olanzapine (Olanzapine 5 Mg Tablet) 5 mg PO BEDTIME [facility] Last Admin: 01/06/23 21:41 Dose: 5 mg Ondansetron HCl (Ondansetron Odt 4 Mg Tab.Rapdis) 4 mg TRANSLINGU Q6H PRN PRN Reason: Nausea and Vomiting Last Admin: 12/17/22 12:26 Dose: 4 mg Polyethylene Glycol (Polyethylene Glycol 3350 17 Gm Powd.Pack) 17 gm PO DAILY@1600 [facility] Last Admin: 01/06/23 17:21 Dose: 17 gm Senna/Docusate Sodium (Sennosides/Docusate Sodium Tablet) 2 tab PO BID [facility] Last Admin: 01/07/23 08:27 Dose: 2 tab Sodium Biphosphate/Sodium Phosphate (Sodium Phosphate,[place]-Dibasic 133 Ml Enema) 133 ml [place] ONCE PRN PRN Reason: Constipation Tamsulosin HCl (Tamsulosin Hcl 0.4 Mg Capsule) 0.4 mg PO DAILY [facility] Last Admin: 01/07/23 08:27 Dose: 0.4 mg Trazodone HCl (Trazodone Hcl 100 Mg Tablet) 200 mg PO BEDTIME [facility] Last Admin: 01/06/23 21:40 Dose: 200 mg Venlafaxine HCl (Venlafaxine Hcl Er 75 Mg Cap.Er.24h) 75 mg PO DAILY [facility] Last Admin: 01/07/23 08:27 Dose: 75 mg Allergies Allergies Allergy/AdvReac Type Severity Reaction Status Date / Time fentanyl [FENTANYL] Allergy Intermediate unknown Verified 04/08/22 07:00 Assessment & Plan Assessment & Plan (1) Cognitive and neurobehavioral dysfunction following brain injury: Status: Acute Code(s): G31.89 - Other specified degenerative diseases of nervous system; F09 - Unspecified mental disorder due to known physiological condition; S06.9X9S - Unspecified intracranial injury with loss of consciousness of unspecified duration, sequela (2) Major depressive disorder, recurrent severe without psychotic features: Status: Acute Code(s): F33.2 - Major depressive disorder, recurrent severe without psychotic features (3) Swallowing dysfunction: Status: Acute Code(s): R13.10 - Dysphagia, unspecified Plan Patient seems minimally less labile with olanzapine during the day and alprazolam to decrease irritability reactivity monitor for over sedation continue discharge planning Encourage daily strength training lower Effexor to 75 mg in case it is overly stimulating the patient to increased reactivity Start Depakote 125 mg twice a day will start gradually for mood instability 01/05: Continue current plans and regimen 01/06/2023 Patient feels better on Depakote increase Depakote to 125 t.i.d. lower Lamictal 01/07/2023 Increase Depakote to 250 b.i.d. secondary to anxiety reviewed cognitive behavioral strategies Reason for contiued inpatient stay Substantial Risk for: harm to self, inability to function and rapid decompensation Time Spent With Patient Time: Total time managing care of this patient today ____ minutes.
--- NOTE | 2023-01-07 15:08 | MHC.SL.SWA ---
Addendum entered and electronically signed by Maddy Harris MA, [facility]-CLINICAL NURSING MANAGER 01/07/23 17:01: D.S. Original Note: Speech Pathologist Impression: Oropharyngeal Phase Dysphagia Risk of Aspiration Due to: Neurological Condition Reduced Cognition Dysphasia Diet Status: Recommend continue with REGULAR diet, continue with thin liquids, pills whole in with liquid for a trial period of one week, to allow patient to make informed, elective choices about food consistent with swallowing needs. Continue with swallowing precautions as outlined, provide periodic supervision during all meals, recommend Tx from CLINICAL NURSING MANAGER M-F X1/day during trial period. Liquid Consistency and Strategies for Safe Swallow: Liquid Intake Recommendation: Thin Liquid Intake Strategies: No Straws Double Swallow Solid Food Consistency: Dietary Recommendations: Regular Additional Modifications to Solid Foods: Cue patient to double swallow (dry swallow), particularly on sticky or harder to chew consistencies. Alternate liquids and solids. Oral Medication Intake: Whole with Liquid Please contact the pharmacy regarding appropriate crushable or liquid drug formulations that are available whenever modified delivery is recommended. Compensatory Strategies and Precautions to be Taken for Safe Swallow: Sitting Upright (90 deg) Double Swallow No Straw Small Bites and Sips Alternate Liquids/Solids Rate of Ingestion Change Avoid Specific Foods Supervision While Eating and Drinking for Safe Swallow: Intermittent Supervision Foods to Avoid: Hard to chew solids (e.g. solid pieces of meat), dry consistencies that break into pieces (e.g. cookies, crackers, chips, nuts), mixed solid consistencies that require ample chewing (e.g. green salads), rice. Swallowing Recommended Treatments: Compens. Strategy Educat. Recommendation for Speech: Inpatient Speech Therapy *SEE MBSS NOTES - NOV 2022 FOR SPECIFIC RECOMMENDATIONS* Pt seen in afternoon to check in for toleration of current unrestricted diet and ongoing education re: Swallowing needs. Pt expressed that he was grateful for the CLINICAL NURSING MANAGER team's presence and knowledge. Through conversation, patient demonstrated understanding of recommended strategies as well as rationale as to why these strategies were recommended. Patient reported using strategies for safe eating including evaluation of meal tray and making safe choices (i.e. removing items from tray that he doesn't feel confident he can chew or eat well, avoiding foods like rice & nuts), taking small bites, chewing well, swallowing extra following bites, and alternating solids and liquids. For example, patient reported he was given a sandwich with meat, lettuce, and tomato, on rye bread and he removed rye bread because it looked too hard and didn't want to take any chances. Patient reported that cue card w/ recommended strategies was helpful and he knows where it is in his room. Communications Department Head Clinican/Clinical Fellow: Yes: Bridget Martinez M.A., [facility]-CLINICAL NURSING MANAGER
[2023-01-07] MEDS: polyethylene glycoL 3350 17 GM POWD.PACK PO (15:16)
[2023-01-07] MEDS: OLANZapine 2.5 MG TABLET PO (15:16)
[2023-01-07 19:15] VITALS: BP 117/70; PULSE 81; RESP 17; TEMP 36.6; O2SAT 97
[2023-01-07] MEDS: ALPRAZolam 0.5 MG TABLET PO (21:17)
[2023-01-07] MEDS: Divalproex Sodium Sprinkles 125 MG CAP.DR.SPR 250 MG PO (21:18)
[2023-01-07] MEDS: Nortriptyline HCl 25 MG CAPSULE 50 MG PO (21:19)
[2023-01-07] MEDS: traZODone HCL 100 MG TABLET 200 MG PO (21:20)
[2023-01-07] MEDS: OLANZapine 5 MG TABLET PO (21:20)
[2023-01-07] MEDS: Lidocaine 5 % Ointment 35 GM 1 APPL TOPICAL (21:21)
[2023-01-07] MEDS: Latanoprost 0.005 % Ophth Sol 2.5 ML DROPS 1 DROP EYE-BOTH (21:29)
[2023-01-08] MEDS: hydrOXYzine HCL 50 MG TABLET PO (02:27)
[2023-01-08 08:30] VITALS: BP 133/68; PULSE 84; RESP 16; TEMP 37.2; O2SAT 96
[2023-01-08] MEDS: Sennosides/Docusate Sodium TABLET 2 TAB PO ×2 (09:12→21:27)
[2023-01-08] MEDS: amLODIPine Besylate 5 MG TABLET PO (09:12)
[2023-01-08] MEDS: Tamsulosin HCL 0.4 MG CAPSULE PO (09:13)
[2023-01-08] MEDS: Gabapentin 100 MG CAPSULE PO ×3 (09:13→21:24)
[2023-01-08] MEDS: Venlafaxine HCl ER 75 MG CAP.ER.24H PO (09:13)
[2023-01-08] MEDS: lamoTRIgine 100 MG TABLET PO ×2 (09:13→21:25)
[2023-01-08] MEDS: Divalproex Sodium Sprinkles 125 MG CAP.DR.SPR 250 MG PO ×2 (09:13→21:24)
--- NOTE | 2023-01-08 12:26 | MHC.SL.SWA ---
Speech Pathologist Impression: Risk of Aspiration Due to: Neurological Condition Reduced Cognition Dysphasia Diet Status: Recommend continue on REGULAR diet with THIN liquids, Pills whole with liquids or puree as preferred by patient. BULLET SLUG CASTING MACHINE OPERATOR will check in X1 weekly with patient and/or nursing staff while patient is in [facility]/Psych unit. Liquid Consistency and Strategies for Safe Swallow: Liquid Intake Recommendation: Thin Liquid Intake Strategies: No Straws Double Swallow Solid Food Consistency: Dietary Recommendations: Regular Additional Modifications to Solid Foods: Cue patient to double swallow (dry swallow), particularly on sticky or harder to chew consistencies. Alternate liquids and solids. Oral Medication Intake: Whole with Liquid Please contact the pharmacy regarding appropriate crushable or liquid drug formulations that are available whenever modified delivery is recommended. Compensatory Strategies and Precautions to be Taken for Safe Swallow: Sitting Upright (90 deg) Double Swallow No Straw Small Bites and Sips Alternate Liquids/Solids Rate of Ingestion Change Avoid Specific Foods Supervision While Eating and Drinking for Safe Swallow: Intermittent Supervision Foods to Avoid: Hard to chew solids (e.g. solid pieces of meat), dry consistencies that break into pieces (e.g. cookies, crackers, chips, nuts), mixed solid consistencies that require ample chewing (e.g. green salads), rice. Swallowing Recommended Treatments: Compens. Strategy Educat. Recommendation for Speech: Inpatient Speech Therapy NOTE: See MBSS study for specific swallowing recommendations/strategies Comment: Patient seen at end of lunch for toleration of unrestricted diet, pattern of making informed food choices, awareness of swallow strategies and issues. Patient had mostly finished his meal of a cheeseburger on a soft bun, a brownie and ice teas. Patient was very pleasant and communicative today, noted thank you and your department for trusting me. Patient's good food choices and careful use of swallowing strategies were all praised, and patient was informed that he would be continuing on the current diet, with BULLET SLUG CASTING MACHINE OPERATOR checking in once weekly on his progress. Patient again informed BULLET SLUG CASTING MACHINE OPERATOR that he will be going to a correction around mid January, after the home is renovated for his wheel chair. He stated I would be mistaken if I didn't say I was trepidatious. Recommend continue on REGULAR diet with THIN liquids, Pills whole with liquids or puree as preferred by patient. BULLET SLUG CASTING MACHINE OPERATOR will check in X1 weekly with patient and/or nursing staff while patient is in [facility]/Psych unit. Frequency/Duration: Date Range for Service Req: Timeline to reassess: Supervisor Molding Clinican/Clinical Fellow: Yes: Bridget Martinez M.A., [facility]-BULLET SLUG CASTING MACHINE OPERATOR Supervisory Statement: I have reviewed and agree with the student/clinical fellow's documentation: Yes Speech Language Pathologist: Maddy Harris M.A., [facility]3]-BULLET SLUG CASTING MACHINE OPERATOR
[2023-01-08] MEDS: OLANZapine 2.5 MG TABLET PO (16:47)
[2023-01-08 20:00] VITALS: BP 147/69; PULSE 80; RESP 18; TEMP 36.6; O2SAT 94
[2023-01-08] MEDS: Nortriptyline HCl 25 MG CAPSULE 50 MG PO (21:24)
[2023-01-08] MEDS: OLANZapine 5 MG TABLET PO (21:25)
[2023-01-08] MEDS: traZODone HCL 100 MG TABLET 200 MG PO (21:25)
[2023-01-08] MEDS: ALPRAZolam 0.5 MG TABLET PO (21:25)
[2023-01-08] MEDS: Latanoprost 0.005 % Ophth Sol 2.5 ML DROPS 1 DROP EYE-BOTH (21:26)
[2023-01-08] MEDS: Lidocaine 5 % Ointment 35 GM 1 APPL TOPICAL (21:26)
[2023-01-08] MEDS: Acetaminophen 325 MG TABLET 650 MG PO (21:41)
--- NOTE | 2023-01-08 21:58 | HO.PSYCHPN ---
Subjective Subjective Date of Service: 01/08/23 Reason For Visit: Depression hopelessness irritability Subjective Notes: Conditional Voluntary Interim History: p Mental Status Exam Mental Status Exam Patient Orientation: Person, Place, Time and Situation Level of Consciousness: Awake Patient Behavior: Appropriate Mood Description: Constricted, Anxious and Apprehensive Affect Description: Constricted and Apprehensive Ability to Follow Directions: Good Speech Pattern: Perseverating Memory Description: Episodic Impaired and Working Impaired Hallucinations: None Delusions: Not Present Thought Process: Rumination Thought Content: positive for Perseveration, positive for Preoccupation, positive for Suicidal Ideation (Denies current plan or intent) and negative for Homicidal Ideation Depressive Symptoms: Increased Anxiety Judgement: Fair Judgement and Insight: Reports improved mood less reactivity Diagnostics Vital Signs (24Hr): Vital Signs - 24 hr 01/08/23 08:30 01/08/23 20:00 Temperature 98.9 F 97.9 F Pulse Rate 84 80 Respiratory Rate 16 18 Blood Pressure 133/68 147/69 H Pulse Oximetry 96 94 Oxygen Delivery Method Room Air Room Air BMI result Body Mass Index 30.2 Labs 11/13/22 07:43 11/12/22 09:32 Labs: Laboratory Results - last 48 hr 01/07/23 09:00 Influenza Type A (PCR) NEGATIVE Influenza Type B (PCR) NEGATIVE RSV RNA Qual (PCR) NEGATIVE SARS-CoV-2 RNA (RT-PCR) NEGATIVE Imaging Radiology Impressions: ITS Impressions Chest X-Ray 10/20/22 15:45 IMPRESSION: 1. Low lung volumes with bibasilar linear disc atelectasis versus scarring. 2. No airspace consolidation or effusion. Head CT 11/08/22 12:29 IMPRESSION: No acute intracranial hemorrhage or territorial infarction. Stable chronic postoperative changes with gliosis and encephalomalacia in the right frontal and right temporal lobes. Ex vacuo dilatation of the ventricles and diffuse parenchymal volume loss. Right-sided craniotomy changes. Chest X-Ray 11/12/22 10:32 IMPRESSION: Hypoexpanded lungs with bibasilar platelike atelectasis. Brain MRI 11/12/22 13:15 IMPRESSION: 1. No demonstrated acute intracranial abnormalities. 2. Chronic encephalomalacia of the right temporal, right frontal, and left occipital lobes. Small regions of chronic encephalomalacia in the parasagittal aspects of the bilateral parietal lobes. Moderate underlying microangiopathy and generalized cerebral volume loss. Chest X-Ray 11/14/22 15:52 IMPRESSION: Low lung volumes, bibasilar subsegmental atelectasis and slight elevation of the right hemidiaphragm similar to previous exam. Modified Barium Swallow 11/21/22 15:11 IMPRESSION: Laryngeal penetration on several occasions but no laryngeal aspiration. Mild retention of solid food in the valleculae which cleared with subsequent oral administration of water or thin barium. Correlate with speech therapy results. Medications Medications Current Medications Acetaminophen (Acetaminophen 325 Mg Tablet) 650 mg PO Q6H PRN PRN Reason: Headache/Pain Mild Scale (1-3) Last Admin: 01/08/23 21:41 Dose: 650 mg Albuterol Sulfate (Albuterol Sulfate 90 Mcg 8 Gm Inhaler) 2 puff INHALE Q6H PRN PRN Reason: Wheezing Alprazolam (Alprazolam 0.25 Mg Tablet) 0.25 mg PO Q4H PRN PRN Reason: Anxiety Last Admin: 01/07/23 12:28 Dose: 0.25 mg Alprazolam (Alprazolam 0.5 Mg Tablet) 0.5 mg PO BEDTIME [facility] Last Admin: 01/08/23 21:25 Dose: 0.5 mg Amlodipine Besylate (Amlodipine Besylate 5 Mg Tablet) 5 mg PO DAILY [facility]; Protocol Last Admin: 01/08/23 09:12 Dose: 5 mg Bisacodyl (Bisacodyl 10 Mg Supp.Rect) 10 mg [place] DAILY PRN PRN Reason: Constipation Divalproex Sodium (Divalproex Sodium Sprinkles 125 Mg ) 250 mg PO BID [facility] Last Admin: 01/08/23 21:24 Dose: 250 mg Gabapentin (Gabapentin 100 Mg Capsule) 100 mg PO TID [facility] Last Admin: 01/08/23 21:24 Dose: 100 mg Guaifenesin/Dextromethorphan (Guaifenesin Dm 200/20/10 Ml 10 Ml Syrup) 10 ml PO Q4H PRN PRN Reason: Cough Last Admin: 11/20/22 05:31 Dose: 10 ml Hydroxyzine HCl (Hydroxyzine Hcl 50 Mg Tablet) 50 mg PO Q4H PRN PRN Reason: Anxiety Last Admin: 01/07/23 01:32 Dose: 50 mg Lamotrigine (Lamotrigine 100 Mg Tablet) 100 mg PO BID [facility] Last Admin: 01/08/23 21:25 Dose: 100 mg Latanoprost (Latanoprost 0.005 % Ophth No 2.5 Ml Drops) 1 drop EYE-BOTH BEDTIME [facility] Last Admin: 01/08/23 21:26 Dose: 1 drop Lidocaine (Lidocaine 5 % Ointment 35 Gm) 1 appl TOPICAL QID [facility] Last Admin: 01/08/23 21:26 Dose: 1 appl Multi-Ingred Cream/Lotion/Oil/Oint (Mineral Oil/Petrolatum,White 106 Gm Tube) 1 appl TOPICAL BID PRN; Protocol PRN Reason: dry skin Nortriptyline HCl (Nortriptyline Hcl 25 Mg Capsule) 50 mg PO BEDTIME [facility] Last Admin: 01/08/23 21:24 Dose: 50 mg Olanzapine (Olanzapine 2.5 Mg Tablet) 2.5 mg PO DAILY@1500 [facility] Last Admin: 01/08/23 16:47 Dose: 2.5 mg Olanzapine (Olanzapine 5 Mg Tablet) 5 mg PO BEDTIME [facility] Last Admin: 01/08/23 21:25 Dose: 5 mg Ondansetron HCl (Ondansetron Odt 4 Mg Tab.Rapdis) 4 mg TRANSLINGU Q6H PRN PRN Reason: Nausea and Vomiting Last Admin: 12/17/22 12:26 Dose: 4 mg Polyethylene Glycol (Polyethylene Glycol 3350 17 Gm Powd.Pack) 17 gm PO DAILY@1600 [facility] Last Admin: 01/08/23 16:48 Dose: Not Given Senna/Docusate Sodium (Sennosides/Docusate Sodium Tablet) 2 tab PO BID [facility] Last Admin: 01/08/23 21:27 Dose: 2 tab Sodium Biphosphate/Sodium Phosphate (Sodium Phosphate,[place]-Dibasic 133 Ml Enema) 133 ml [place] ONCE PRN PRN Reason: Constipation Tamsulosin HCl (Tamsulosin Hcl 0.4 Mg Capsule) 0.4 mg PO DAILY [facility] Last Admin: 01/08/23 09:13 Dose: 0.4 mg Trazodone HCl (Trazodone Hcl 100 Mg Tablet) 200 mg PO BEDTIME [facility] Last Admin: 01/08/23 21:25 Dose: 200 mg Venlafaxine HCl (Venlafaxine Hcl Er 75 Mg Cap.Er.24h) 75 mg PO DAILY [facility] Last Admin: 01/08/23 09:13 Dose: 75 mg Allergies Allergies Allergy/AdvReac Type Severity Reaction Status Date / Time fentanyl [FENTANYL] Allergy Intermediate unknown Verified 04/08/22 07:00 Assessment & Plan Assessment & Plan (1) Cognitive and neurobehavioral dysfunction following brain injury: Status: Acute Code(s): G31.89 - Other specified degenerative diseases of nervous system; F09 - Unspecified mental disorder due to known physiological condition; S06.9X9S - Unspecified intracranial injury with loss of consciousness of unspecified duration, sequela (2) Major depressive disorder, recurrent severe without psychotic features: Status: Acute Code(s): F33.2 - Major depressive disorder, recurrent severe without psychotic features (3) Swallowing dysfunction: Status: Acute Code(s): R13.10 - Dysphagia, unspecified Plan Patient seems minimally less labile with olanzapine during the day and alprazolam to decrease irritability reactivity monitor for over sedation continue discharge planning Encourage daily strength training lower Effexor to 75 mg in case it is overly stimulating the patient to increased reactivity Start Depakote 125 mg twice a day will start gradually for mood instability 01/05: Continue current plans and regimen 01/06/2023 Patient feels better on Depakote increase Depakote to 125 t.i.d. lower Lamictal 01/07/2023 Increase Depakote to 250 b.i.d. secondary to anxiety reviewed cognitive behavioral strategies 01/08/23 pt seems improved with depakote cont plan of care Reason for contiued inpatient stay Substantial Risk for: inability to function, rapid decompensation and med/psych decompensation Time Spent With Patient Time: Total time managing care of this patient today ____ minutes.
[2023-01-09 07:30] VITALS: BP 141/86; PULSE 82; RESP 15; TEMP 36.4; O2SAT 96
[2023-01-09] MEDS: Divalproex Sodium Sprinkles 125 MG CAP.DR.SPR 250 MG PO ×2 (09:39→22:05)
[2023-01-09] MEDS: lamoTRIgine 100 MG TABLET PO ×2 (09:40→22:05)
[2023-01-09] MEDS: amLODIPine Besylate 5 MG TABLET PO (09:41)
[2023-01-09] MEDS: Gabapentin 100 MG CAPSULE PO ×3 (09:41→22:06)
[2023-01-09] MEDS: Sennosides/Docusate Sodium TABLET 2 TAB PO ×2 (09:41→22:06)
[2023-01-09] MEDS: Venlafaxine HCl ER 75 MG CAP.ER.24H PO (09:42)
[2023-01-09] MEDS: Tamsulosin HCL 0.4 MG CAPSULE PO (09:42)
[2023-01-09] MEDS: OLANZapine 2.5 MG TABLET PO (16:16)
[2023-01-09 18:00] VITALS: BP 118/69; PULSE 95; RESP 16; TEMP 36.6; O2SAT 95
--- NOTE | 2023-01-09 21:39 | P.PNPSI_ITS ---
Subjective Subjective Date of Service: 01/09/23 Reason For Visit: Depression hopelessness irritability Subjective Notes: Conditional Voluntary Healthcare Proxy: No Guardianship: No Medical Problems Affecting Mental Status: No Medication Compliance: Yes Attending Groups: Intermittent Review of Systems Chronic swallowing difficulties Medical Review of Systems: unchanged Mental Status Exam Mental Status Exam Patient Appearance: Fatigued Patient Orientation: Person, Place, Time and Situation Level of Consciousness: Awake Patient Behavior: Appropriate Behavior Comments: intermittently irritable, belligerent Mood Description: Appropriate, Constricted and Anxious Affect Description: Calm, Appropriate and Constricted Patient Cognition Impaired: Yes Ability to Follow Directions: Good Memory Description: Episodic Impaired and Working Impaired Delusions: Not Present Thought Process: Rumination Thought Content: positive for Preoccupation, positive for Slowed Thinking, negative for Suicidal Ideation or negative for Homicidal Ideation Depressive Symptoms: Diff. Making Decisions Judgement and Insight: Improving mood and judgment better able to keep things in perspective Diagnostics Vital Signs (24Hr): Vital Signs - 24 hr 01/09/23 07:30 01/09/23 18:00 Temperature 97.6 F 97.8 F Pulse Rate 82 95 Respiratory Rate 15 16 Blood Pressure 141/86 H 118/69 Pulse Oximetry 96 95 Oxygen Delivery Method Room Air BMI result Body Mass Index 30.2 Labs 11/13/22 07:43 11/12/22 09:32 Imaging Radiology Impressions: ITS Impressions Chest X-Ray 10/20/22 15:45 IMPRESSION: 1. Low lung volumes with bibasilar linear disc atelectasis versus scarring. 2. No airspace consolidation or effusion. Head CT 11/08/22 12:29 IMPRESSION: No acute intracranial hemorrhage or territorial infarction. Stable chronic postoperative changes with gliosis and encephalomalacia in the right frontal and right temporal lobes. Ex vacuo dilatation of the ventricles and diffuse parenchymal volume loss. Right-sided craniotomy changes. Chest X-Ray 11/12/22 10:32 IMPRESSION: Hypoexpanded lungs with bibasilar platelike atelectasis. Brain MRI 11/12/22 13:15 IMPRESSION: 1. No demonstrated acute intracranial abnormalities. 2. Chronic encephalomalacia of the right temporal, right frontal, and left occipital lobes. Small regions of chronic encephalomalacia in the parasagittal aspects of the bilateral parietal lobes. Moderate underlying microangiopathy and generalized cerebral volume loss. Chest X-Ray 11/14/22 15:52 IMPRESSION: Low lung volumes, bibasilar subsegmental atelectasis and slight elevation of the right hemidiaphragm similar to previous exam. Modified Barium Swallow 11/21/22 15:11 IMPRESSION: Laryngeal penetration on several occasions but no laryngeal aspiration. Mild retention of solid food in the valleculae which cleared with subsequent oral administration of water or thin barium. Correlate with speech therapy results. Medications Medications Current Medications Acetaminophen (Acetaminophen 325 Mg Tablet) 650 mg PO Q6H PRN PRN Reason: Headache/Pain Mild Scale (1-3) Last Admin: 01/08/23 21:41 Dose: 650 mg Albuterol Sulfate (Albuterol Sulfate 90 Mcg 8 Gm Inhaler) 2 puff INHALE Q6H PRN PRN Reason: Wheezing Alprazolam (Alprazolam 0.25 Mg Tablet) 0.25 mg PO Q4H PRN PRN Reason: Anxiety Last Admin: 01/07/23 12:28 Dose: 0.25 mg Alprazolam (Alprazolam 0.5 Mg Tablet) 0.5 mg PO BEDTIME [facility] Last Admin: 01/08/23 21:25 Dose: 0.5 mg Amlodipine Besylate (Amlodipine Besylate 5 Mg Tablet) 5 mg PO DAILY [facility]; Protocol Last Admin: 01/09/23 09:41 Dose: 5 mg Bisacodyl (Bisacodyl 10 Mg Supp.Rect) 10 mg [place] DAILY PRN PRN Reason: Constipation Divalproex Sodium (Divalproex Sodium Sprinkles 125 Mg ) 250 mg PO BID [facility] Last Admin: 01/09/23 09:39 Dose: 250 mg Gabapentin (Gabapentin 100 Mg Capsule) 100 mg PO TID [facility] Last Admin: 01/09/23 16:16 Dose: 100 mg Guaifenesin/Dextromethorphan (Guaifenesin Dm 200/20/10 Ml 10 Ml Syrup) 10 ml PO Q4H PRN PRN Reason: Cough Last Admin: 11/20/22 05:31 Dose: 10 ml Hydroxyzine HCl (Hydroxyzine Hcl 50 Mg Tablet) 50 mg PO Q4H PRN PRN Reason: Anxiety Last Admin: 01/07/23 01:32 Dose: 50 mg Lamotrigine (Lamotrigine 100 Mg Tablet) 100 mg PO BID [facility] Last Admin: 01/09/23 09:40 Dose: 100 mg Latanoprost (Latanoprost 0.005 % Ophth No 2.5 Ml Drops) 1 drop EYE-BOTH BEDTIME [facility] Last Admin: 01/08/23 21:26 Dose: 1 drop Lidocaine (Lidocaine 5 % Ointment 35 Gm) 1 appl TOPICAL QID [facility] Last Admin: 01/09/23 17:45 Dose: Not Given Multi-Ingred Cream/Lotion/Oil/Oint (Mineral Oil/Petrolatum,White 106 Gm Tube) 1 appl TOPICAL BID PRN; Protocol PRN Reason: dry skin Nortriptyline HCl (Nortriptyline Hcl 25 Mg Capsule) 50 mg PO BEDTIME [facility] Last Admin: 01/08/23 21:24 Dose: 50 mg Olanzapine (Olanzapine 2.5 Mg Tablet) 2.5 mg PO DAILY@1500 [facility] Last Admin: 01/09/23 16:16 Dose: 2.5 mg Olanzapine (Olanzapine 5 Mg Tablet) 5 mg PO BEDTIME [facility] Last Admin: 01/08/23 21:25 Dose: 5 mg Ondansetron HCl (Ondansetron Odt 4 Mg Tab.Rapdis) 4 mg TRANSLINGU Q6H PRN PRN Reason: Nausea and Vomiting Last Admin: 12/17/22 12:26 Dose: 4 mg Polyethylene Glycol (Polyethylene Glycol 3350 17 Gm Powd.Pack) 17 gm PO BID [facility] Last Admin: 01/09/23 09:41 Dose: Not Given Senna/Docusate Sodium (Sennosides/Docusate Sodium Tablet) 2 tab PO BID [facility] Last Admin: 01/09/23 09:41 Dose: 2 tab Sodium Biphosphate/Sodium Phosphate (Sodium Phosphate,[place]-Dibasic 133 Ml Enema) 133 ml [place] ONCE PRN PRN Reason: Constipation Tamsulosin HCl (Tamsulosin Hcl 0.4 Mg Capsule) 0.4 mg PO DAILY [facility] Last Admin: 01/09/23 09:42 Dose: 0.4 mg Trazodone HCl (Trazodone Hcl 100 Mg Tablet) 200 mg PO BEDTIME [facility] Last Admin: 01/08/23 21:25 Dose: 200 mg Venlafaxine HCl (Venlafaxine Hcl Er 75 Mg Cap.Er.24h) 75 mg PO DAILY [facility] Last Admin: 01/09/23 09:42 Dose: 75 mg Allergies Allergies Allergy/AdvReac Type Severity Reaction Status Date / Time fentanyl [FENTANYL] Allergy Intermediate unknown Verified 04/08/22 07:00 Assessment & Plan Assessment & Plan (1) Cognitive and neurobehavioral dysfunction following brain injury: Status: Acute Code(s): G31.89 - Other specified degenerative diseases of nervous system; F09 - Unspecified mental disorder due to known physiological condition; S06.9X9S - Unspecified intracranial injury with loss of consciousness of unspecified duration, sequela (2) Major depressive disorder, recurrent severe without psychotic features: Status: Acute Code(s): F33.2 - Major depressive disorder, recurrent severe without psychotic features (3) Swallowing dysfunction: Status: Acute Code(s): R13.10 - Dysphagia, unspecified Plan Patient seems minimally less labile with olanzapine during the day and alprazolam to decrease irritability reactivity monitor for over sedation continue discharge planning Encourage daily strength training lower Effexor to 75 mg in case it is overly stimulating the patient to increased reactivity Start Depakote 125 mg twice a day will start gradually for mood instability 01/05: Continue current plans and regimen 01/06/2023 Patient feels better on Depakote increase Depakote to 125 t.i.d. lower Lamictal 01/07/2023 Increase Depakote to 250 b.i.d. secondary to anxiety reviewed cognitive be havioral strategies 01/08/23 pt seems improved with depakote cont plan of care 01/09/23 Pt seen in f/u mood improved encourage inc perspective cbt skills Patient educated on: diagnosis and medication risk/benefits Informed Consent: understands Reason for contiued inpatient stay Substantial Risk for: harm to self, inability to function and rapid decompensation Time Spent With Patient Time: Total time managing care of this patient today ____ minutes.
[2023-01-09] MEDS: Lidocaine 5 % Ointment 35 GM 1 APPL TOPICAL (22:02)
[2023-01-09] MEDS: Latanoprost 0.005 % Ophth Sol 2.5 ML DROPS 1 DROP EYE-BOTH (22:02)
[2023-01-09] MEDS: traZODone HCL 100 MG TABLET 200 MG PO (22:03)
[2023-01-09] MEDS: Nortriptyline HCl 25 MG CAPSULE 50 MG PO (22:03)
[2023-01-09] MEDS: ALPRAZolam 0.5 MG TABLET PO (22:04)
[2023-01-09] MEDS: OLANZapine 5 MG TABLET PO (22:05)
[2023-01-10 06:00] VITALS: BP 150/83; PULSE 80; RESP 20; TEMP 36.3; O2SAT 97
[2023-01-10] MEDS: Gabapentin 100 MG CAPSULE PO ×3 (09:38→21:11)
[2023-01-10] MEDS: Venlafaxine HCl ER 75 MG CAP.ER.24H PO (09:38)
[2023-01-10] MEDS: lamoTRIgine 100 MG TABLET PO ×2 (09:38→21:11)
[2023-01-10] MEDS: amLODIPine Besylate 5 MG TABLET PO (09:38)
[2023-01-10] MEDS: Sennosides/Docusate Sodium TABLET 2 TAB PO ×2 (09:38→21:14)
[2023-01-10] MEDS: Divalproex Sodium Sprinkles 125 MG CAP.DR.SPR 250 MG PO ×2 (09:38→21:10)
[2023-01-10] MEDS: Tamsulosin HCL 0.4 MG CAPSULE PO (09:38)
--- NOTE | 2023-01-10 14:05 | HO.PSYCHPN ---
Subjective Subjective Date of Service: 01/10/23 Reason For Visit: Depression hopelessness irritability Interim History: patient seen. Reports he is feeling better with improved sleep. Denies SI/HI today. Says he has some nausea and abdominal discomfort. Reviewed he can try Zofran which he has ordered for similar complaints in the past. Review of Systems Review of Systems Chest pain and discomfort Yes all other systems are reviewed and are negative, Unobtainable due to mental condition and Unobtainable due to mental status Mental Status Exam Mental Status Exam Narrative: Appearance: casually groomed, good hygiene, in NAD Behavior: cooperative Psychomotor: no agitation or retardation noted Speech: clear, some delayed in response, soft tone, spontaneous TP: tangential TC: no psychosis, feeling anxious Mood: anxious Affect: brighter, calmer than reported mood SI: denies HI: none Delusions: none Insight/judgment: fair x 2. Memory/cog: alert, oriented x 3. not formally tested. Patient Appearance: Fatigued Patient Orientation: Person, Place, Time and Situation Level of Consciousness: Awake Patient Behavior: Appropriate Behavior Comments: intermittently irritable, belligerent Mood Description: Constricted, Anxious and Apprehensive Affect Description: Constricted and Apprehensive Patient Cognition Impaired: Yes Ability to Follow Directions: Good Speech Pattern: Perseverating Memory Description: Episodic Impaired and Working Impaired Diagnostics Vital Signs (24Hr): Vital Signs - 24 hr 01/09/23 18:00 01/10/23 06:00 Temperature 97.8 F 97.4 F Pulse Rate 95 80 Respiratory Rate 16 20 Blood Pressure 118/69 150/83 H Pulse Oximetry 95 97 Oxygen Delivery Method Room Air BMI result Body Mass Index 30.2 Labs 11/13/22 07:43 11/12/22 09:32 Imaging Radiology Impressions: ITS Impressions Chest X-Ray 10/20/22 15:45 IMPRESSION: 1. Low lung volumes with bibasilar linear disc atelectasis versus scarring. 2. No airspace consolidation or effusion. Head CT 11/08/22 12:29 IMPRESSION: No acute intracranial hemorrhage or territorial infarction. Stable chronic postoperative changes with gliosis and encephalomalacia in the right frontal and right temporal lobes. Ex vacuo dilatation of the ventricles and diffuse parenchymal volume loss. Right-sided craniotomy changes. Chest X-Ray 11/12/22 10:32 IMPRESSION: Hypoexpanded lungs with bibasilar platelike atelectasis. Brain MRI 11/12/22 13:15 IMPRESSION: 1. No demonstrated acute intracranial abnormalities. 2. Chronic encephalomalacia of the right temporal, right frontal, and left occipital lobes. Small regions of chronic encephalomalacia in the parasagittal aspects of the bilateral parietal lobes. Moderate underlying microangiopathy and generalized cerebral volume loss. Chest X-Ray 11/14/22 15:52 IMPRESSION: Low lung volumes, bibasilar subsegmental atelectasis and slight elevation of the right hemidiaphragm similar to previous exam. Modified Barium Swallow 11/21/22 15:11 IMPRESSION: Laryngeal penetration on several occasions but no laryngeal aspiration. Mild retention of solid food in the valleculae which cleared with subsequent oral administration of water or thin barium. Correlate with speech therapy results. Medications Medications Current Medications Acetaminophen (Acetaminophen 325 Mg Tablet) 650 mg PO Q6H PRN PRN Reason: Headache/Pain Mild Scale (1-3) Last Admin: 01/10/23 14:25 Dose: 650 mg Albuterol Sulfate (Albuterol Sulfate 90 Mcg 8 Gm Inhaler) 2 puff INHALE Q6H PRN PRN Reason: Wheezing Alprazolam (Alprazolam 0.25 Mg Tablet) 0.25 mg PO Q4H PRN PRN Reason: Anxiety Last Admin: 01/07/23 12:28 Dose: 0.25 mg Alprazolam (Alprazolam 0.5 Mg Tablet) 0.5 mg PO BEDTIME [facility] Last Admin: 01/09/23 22:04 Dose: 0.5 mg Amlodipine Besylate (Amlodipine Besylate 5 Mg Tablet) 5 mg PO DAILY [facility]; Protocol Last Admin: 01/10/23 09:38 Dose: 5 mg Bisacodyl (Bisacodyl 10 Mg Supp.Rect) 10 mg [place] DAILY PRN PRN Reason: Constipation Divalproex Sodium (Divalproex Sodium Sprinkles 125 Mg ) 250 mg PO BID [facility] Last Admin: 01/10/23 09:38 Dose: 250 mg Gabapentin (Gabapentin 100 Mg Capsule) 100 mg PO TID [facility] Last Admin: 01/10/23 14:25 Dose: 100 mg Guaifenesin/Dextromethorphan (Guaifenesin Dm 200/20/10 Ml 10 Ml Syrup) 10 ml PO Q4H PRN PRN Reason: Cough Last Admin: 11/20/22 05:31 Dose: 10 ml Hydroxyzine HCl (Hydroxyzine Hcl 50 Mg Tablet) 50 mg PO Q4H PRN PRN Reason: Anxiety Last Admin: 01/07/23 01:32 Dose: 50 mg Lamotrigine (Lamotrigine 100 Mg Tablet) 100 mg PO BID [facility] Last Admin: 01/10/23 09:38 Dose: 100 mg Latanoprost (Latanoprost 0.005 % Ophth No 2.5 Ml Drops) 1 drop EYE-BOTH BEDTIME [facility] Last Admin: 01/09/23 22:02 Dose: 1 drop Lidocaine (Lidocaine 5 % Ointment 35 Gm) 1 appl TOPICAL QID [facility] Last Admin: 01/10/23 15:08 Dose: Not Given Multi-Ingred Cream/Lotion/Oil/Oint (Mineral Oil/Petrolatum,White 106 Gm Tube) 1 appl TOPICAL BID PRN; Protocol PRN Reason: dry skin Nortriptyline HCl (Nortriptyline Hcl 25 Mg Capsule) 50 mg PO BEDTIME [facility] Last Admin: 01/09/23 22:03 Dose: 50 mg Olanzapine (Olanzapine 2.5 Mg Tablet) 2.5 mg PO DAILY@1500 [facility] Last Admin: 01/10/23 14:25 Dose: 2.5 mg Olanzapine (Olanzapine 5 Mg Tablet) 5 mg PO BEDTIME [facility] Last Admin: 01/09/23 22:05 Dose: 5 mg Ondansetron HCl (Ondansetron Odt 4 Mg Tab.Rapdis) 4 mg TRANSLINGU Q6H PRN PRN Reason: Nausea and Vomiting Last Admin: 01/10/23 14:25 Dose: 4 mg Polyethylene Glycol (Polyethylene Glycol 3350 17 Gm Powd.Pack) 17 gm PO BID [facility] Last Admin: 01/10/23 09:39 Dose: Not Given Senna/Docusate Sodium (Sennosides/Docusate Sodium Tablet) 2 tab PO BID [facility] Last Admin: 01/10/23 09:38 Dose: 2 tab Sodium Biphosphate/Sodium Phosphate (Sodium Phosphate,[place]-Dibasic 133 Ml Enema) 133 ml [place] ONCE PRN PRN Reason: Constipation Tamsulosin HCl (Tamsulosin Hcl 0.4 Mg Capsule) 0.4 mg PO DAILY [facility] Last Admin: 01/10/23 09:38 Dose: 0.4 mg Trazodone HCl (Trazodone Hcl 100 Mg Tablet) 200 mg PO BEDTIME [facility] Last Admin: 01/09/23 22:03 Dose: 200 mg Venlafaxine HCl (Venlafaxine Hcl Er 75 Mg Cap.Er.24h) 75 mg PO DAILY [facility] Last Admin: 01/10/23 09:38 Dose: 75 mg Allergies Allergies Allergy/AdvReac Type Severity Reaction Status Date / Time fentanyl [FENTANYL] Allergy Intermediate unknown Verified 04/08/22 07:00 Assessment & Plan Assessment & Plan (1) Cognitive and neurobehavioral dysfunction following brain injury: Status: Acute Code(s): G31.89 - Other specified degenerative diseases of nervous system; F09 - Unspecified mental disorder due to known physiological condition; S06.9X9S - Unspecified intracranial injury with loss of consciousness of unspecified duration, sequela (2) Major depressive disorder, recurrent severe without psychotic features: Status: Acute Code(s): F33.2 - Major depressive disorder, recurrent severe without psychotic features (3) Swallowing dysfunction: Status: Acute Code(s): R13.10 - Dysphagia, unspecified Plan Patient seems minimally less labile with olanzapine during the day and alprazolam to decrease irritability reactivity monitor for over sedation continue discharge planning Encourage daily strength training lower Effexor to 75 mg in case it is overly stimulating the patient to increased reactivity Start Depakote 125 mg twice a day will start gradually for mood instability 01/05: Continue current plans and regimen 01/06/2023 Patient feels better on Depakote increase Depakote to 125 t.i.d. lower Lamictal 01/07/2023 Increase Depakote to 250 b.i.d. secondary to anxiety reviewed cognitive behavioral strategies 01/08/23 pt seems improved with depakote cont plan of care 01/10: Continue treatment plan. Reason for contiued inpatient stay Substantial Risk for: harm to self and rapid decompensation Time Spent With Patient Time: Total time managing care of this patient today ____ minutes.
[2023-01-10] MEDS: OLANZapine 2.5 MG TABLET PO (14:25)
[2023-01-10] MEDS: Acetaminophen 325 MG TABLET 650 MG PO (14:25)
[2023-01-10] MEDS: Ondansetron ODT 4 MG TAB.RAPDIS TRANSLINGU (14:25)
[2023-01-10 18:00] VITALS: BP 122/68; PULSE 84; RESP 16; TEMP 36.4; O2SAT 95
[2023-01-10] MEDS: OLANZapine 5 MG TABLET PO (21:10)
[2023-01-10] MEDS: Latanoprost 0.005 % Ophth Sol 2.5 ML DROPS 1 DROP EYE-BOTH (21:10)
[2023-01-10] MEDS: Nortriptyline HCl 25 MG CAPSULE 50 MG PO (21:10)
[2023-01-10] MEDS: traZODone HCL 100 MG TABLET 200 MG PO (21:11)
[2023-01-10] MEDS: ALPRAZolam 0.5 MG TABLET PO (21:11)
[2023-01-10] MEDS: Lidocaine 5 % Ointment 35 GM 1 APPL TOPICAL (21:14)
[2023-01-11] MEDS: hydrOXYzine HCL 50 MG TABLET PO ×3 (00:06→17:32)
[2023-01-11] MEDS: Acetaminophen 325 MG TABLET 650 MG PO ×2 (00:06→12:56)
[2023-01-11] MEDS: Ondansetron ODT 4 MG TAB.RAPDIS TRANSLINGU ×2 (00:15→08:34)
[2023-01-11 06:00] VITALS: BP 118/89; PULSE 79; RESP 18; TEMP 36.7; O2SAT 98
[2023-01-11] MEDS: lamoTRIgine 100 MG TABLET PO ×2 (08:32→21:40)
[2023-01-11] MEDS: amLODIPine Besylate 5 MG TABLET PO (08:32)
[2023-01-11] MEDS: Divalproex Sodium Sprinkles 125 MG CAP.DR.SPR 250 MG PO ×2 (08:32→21:40)
[2023-01-11] MEDS: Tamsulosin HCL 0.4 MG CAPSULE PO (08:32)
[2023-01-11] MEDS: Venlafaxine HCl ER 75 MG CAP.ER.24H PO (08:32)
[2023-01-11] MEDS: Sennosides/Docusate Sodium TABLET 2 TAB PO ×2 (08:33→21:40)
[2023-01-11] MEDS: Gabapentin 100 MG CAPSULE PO ×3 (08:37→21:40)
--- NOTE | 2023-01-11 13:25 | P.PNPSI_ITS ---
Subjective Subjective Date of Service: 01/11/23 Reason For Visit: Depression hopelessness irritability Interim History: patient seen. Reports he is feeling better with improved sleep. Denies SI/HI today. Reports medication changes implemented before the weekend have been helpful. Review of Systems Review of Systems Chest pain and discomfort Yes all other systems are reviewed and are negative, Unobtainable due to mental condition and Unobtainable due to mental status Mental Status Exam Mental Status Exam Narrative: Appearance: casually groomed, good hygiene, in NAD Behavior: cooperative Psychomotor: no agitation or retardation noted Speech: clear, some delayed in response, soft tone, spontaneous TP: tangential TC: no psychosis, feeling anxious Mood: anxious Affect: brighter, calmer than reported mood SI: denies HI: none Delusions: none Insight/judgment: fair x 2. Memory/cog: alert, oriented x 3. not formally tested. Patient Appearance: Fatigued Patient Orientation: Person, Place, Time and Situation Level of Consciousness: Awake Patient Behavior: Appropriate Behavior Comments: intermittently irritable, belligerent Mood Description: Appropriate, Constricted and Anxious Affect Description: Calm, Appropriate and Constricted Patient Cognition Impaired: Yes Ability to Follow Directions: Good Speech Pattern: Perseverating Memory Description: Episodic Impaired and Working Impaired Diagnostics Vital Signs (24Hr): Vital Signs - 24 hr 01/11/23 06:00 Temperature 98.1 F Pulse Rate 79 Respiratory Rate 18 Blood Pressure 118/89 Pulse Oximetry 98 Oxygen Delivery Method Room Air BMI result Body Mass Index 30.2 Labs 11/13/22 07:43 11/12/22 09:32 Imaging Radiology Impressions: ITS Impressions Chest X-Ray 10/20/22 15:45 IMPRESSION: 1. Low lung volumes with bibasilar linear disc atelectasis versus scarring. 2. No airspace consolidation or effusion. Head CT 11/08/22 12:29 IMPRESSION: No acute intracranial hemorrhage or territorial infarction. Stable chronic postoperative changes with gliosis and encephalomalacia in the right frontal and right temporal lobes. Ex vacuo dilatation of the ventricles and diffuse parenchymal volume loss. Right-sided craniotomy changes. Chest X-Ray 11/12/22 10:32 IMPRESSION: Hypoexpanded lungs with bibasilar platelike atelectasis. Brain MRI 11/12/22 13:15 IMPRESSION: 1. No demonstrated acute intracranial abnormalities. 2. Chronic encephalomalacia of the right temporal, right frontal, and left occipital lobes. Small regions of chronic encephalomalacia in the parasagittal aspects of the bilateral parietal lobes. Moderate underlying microangiopathy and generalized cerebral volume loss. Chest X-Ray 11/14/22 15:52 IMPRESSION: Low lung volumes, bibasilar subsegmental atelectasis and slight elevation of the right hemidiaphragm similar to previous exam. Modified Barium Swallow 11/21/22 15:11 IMPRESSION: Laryngeal penetration on several occasions but no laryngeal aspiration. Mild retention of solid food in the valleculae which cleared with subsequent oral administration of water or thin barium. Correlate with speech therapy results. Medications Medications Current Medications Acetaminophen (Acetaminophen 325 Mg Tablet) 650 mg PO Q6H PRN PRN Reason: Headache/Pain Mild Scale (1-3) Last Admin: 01/11/23 12:56 Dose: 650 mg Albuterol Sulfate (Albuterol Sulfate 90 Mcg 8 Gm Inhaler) 2 puff INHALE Q6H PRN PRN Reason: Wheezing Alprazolam (Alprazolam 0.25 Mg Tablet) 0.25 mg PO Q4H PRN PRN Reason: Anxiety Last Admin: 01/07/23 12:28 Dose: 0.25 mg Alprazolam (Alprazolam 0.5 Mg Tablet) 0.5 mg PO BEDTIME [facility] Last Admin: 01/10/23 21:11 Dose: 0.5 mg Amlodipine Besylate (Amlodipine Besylate 5 Mg Tablet) 5 mg PO DAILY [facility]; [place] col Last Admin: 01/11/23 08:32 Dose: 5 mg Bisacodyl (Bisacodyl 10 Mg Supp.Rect) 10 mg [place] DAILY PRN PRN Reason: Constipation Divalproex Sodium (Divalproex Sodium Sprinkles 125 Mg ) 250 mg PO BID [facility] Last Admin: 01/11/23 08:32 Dose: 250 mg Gabapentin (Gabapentin 100 Mg Capsule) 100 mg PO TID [facility] Last Admin: 01/11/23 15:38 Dose: 100 mg Guaifenesin/Dextromethorphan (Guaifenesin Dm 200/20/10 Ml 10 Ml Syrup) 10 ml PO Q4H PRN PRN Reason: Cough Last Admin: 11/20/22 05:31 Dose: 10 ml Hydroxyzine HCl (Hydroxyzine Hcl 50 Mg Tablet) 50 mg PO Q4H PRN PRN Reason: Anxiety Last Admin: 01/11/23 17:32 Dose: 50 mg Lamotrigine (Lamotrigine 100 Mg Tablet) 100 mg PO BID [facility] Last Admin: 01/11/23 08:32 Dose: 100 mg Latanoprost (Latanoprost 0.005 % Ophth No 2.5 Ml Drops) 1 drop EYE-BOTH BEDTI [facility] Last Admin: 01/10/23 21:10 Dose: 1 drop Lidocaine (Lidocaine 5 % Ointment 35 Gm) 1 appl TOPICAL QID [facility] Last Admin: 01/11/23 16:44 Dose: 1 appl Multi-Ingred Cream/Lotion/Oil/Oint (Mineral Oil/Petrolatum,White 106 Gm Tube) 1 appl TOPICAL BID PRN; Protocol PRN Reason: dry skin Nortriptyline HCl (Nortriptyline Hcl 25 Mg Capsule) 50 mg PO BEDTIME [facility] Last Admin: 01/10/23 21:10 Dose: 50 mg Olanzapine (Olanzapine 2.5 Mg Tablet) 2.5 mg PO DAILY@1500 [facility] Last Admin: 01/11/23 15:38 Dose: 2.5 mg Olanzapine (Olanzapine 5 Mg Tablet) 5 mg PO BEDTIME [facility] Last Admin: 01/10/23 21:10 Dose: 5 mg Ondansetron HCl (Ondansetron Odt 4 Mg Tab.Rapdis) 4 mg TRANSLINGU Q6H PRN PRN Reason: Nausea and Vomiting Last Admin: 01/11/23 08:34 Dose: 4 mg Polyethylene Glycol (Polyethylene Glycol 3350 17 Gm Powd.Pack) 17 gm PO BID [facility] Last Admin: 01/11/23 08:33 Dose: Not Given Senna/Docusate Sodium (Sennosides/Docusate Sodium Tablet) 2 tab PO BID [facility] Last Admin: 01/11/23 08:33 Dose: 2 tab Sodium Biphosphate/Sodium Phosphate (Sodium Phosphate,[place]-Dibasic 133 Ml Enema) 133 ml [place] ONCE PRN PRN Reason: Constipation Tamsulosin HCl (Tamsulosin Hcl 0.4 Mg Capsule) 0.4 mg PO DAILY [facility] Last Admin: 01/11/23 08:32 Dose: 0.4 mg Trazodone HCl (Trazodone Hcl 100 Mg Tablet) 200 mg PO BEDTIME [facility] Last Admin: 01/10/23 21:11 Dose: 200 mg Venlafaxine HCl (Venlafaxine Hcl Er 75 Mg Cap.Er.24h) 75 mg PO DAILY [facility] Last Admin: 01/11/23 08:32 Dose: 75 mg Allergies Allergies Allergy/AdvReac Type Severity Reaction Status Date / Time fentanyl [FENTANYL] Allergy Intermediate unknown Verified 04/08/22 07:00 Assessment & Plan Assessment & Plan (1) Cognitive and neurobehavioral dysfunction following brain injury: Status: Acute Code(s): G31.89 - Other specified degenerative diseases of nervous system; F09 - Unspecified mental disorder due to known physiological condition; S06.9X9S - Unspecified intracranial injury with loss of consciousness of unspecified duration, sequela (2) Major depressive disorder, recurrent severe without psychotic features: Status: Acute Code(s): F33.2 - Major depressive disorder, recurrent severe without psychotic features (3) Swallowing dysfunction: Status: Acute Code(s): R13.10 - Dysphagia, unspecified Plan Patient seems minimally less labile with olanzapine during the day and alprazolam to decrease irritability reactivity monitor for over sedation continue discharge planning Encourage daily strength training lower Effexor to 75 mg in case it is overly stimulating the patient to increased reactivity Start Depakote 125 mg twice a day will start gradually for mood instability 01/05: Continue current plans and regimen 01/06/2023 Patient feels better on Depakote increase Depakote to 125 t.i.d. lower Lamictal 01/07/2023 Increase Depakote to 250 b.i.d. secondary to anxiety reviewed cognitive behavioral strategies 01/08/23 pt seems improved with depakote cont plan of care 01/09/23 Pt seen in f/u mood improved encourage inc perspective cbt skills 01/11: Continue tx plan. Reason for contiued inpatient stay Substantial Risk for: harm to self and rapid decompensation Time Spent With Patient Time: Total time managing care of this patient today ____ minutes.
[2023-01-11] MEDS: OLANZapine 2.5 MG TABLET PO (15:38)
[2023-01-11] MEDS: Lidocaine 5 % Ointment 35 GM 1 APPL TOPICAL ×2 (16:44→21:54)
[2023-01-11 18:00] VITALS: BP 142/71; PULSE 86; RESP 15; TEMP 36.2; O2SAT 95
[2023-01-11] MEDS: OLANZapine 5 MG TABLET PO (21:40)
[2023-01-11] MEDS: traZODone HCL 100 MG TABLET 200 MG PO (21:40)
[2023-01-11] MEDS: Nortriptyline HCl 25 MG CAPSULE 50 MG PO (21:40)
[2023-01-11] MEDS: polyethylene glycoL 3350 17 GM POWD.PACK PO (21:40)
[2023-01-11] MEDS: ALPRAZolam 0.5 MG TABLET PO (21:41)
[2023-01-11] MEDS: Latanoprost 0.005 % Ophth Sol 2.5 ML DROPS 1 DROP EYE-BOTH (21:41)
[2023-01-12] MEDS: Acetaminophen 325 MG TABLET 650 MG PO ×2 (04:02→14:43)
[2023-01-12] MEDS: hydrOXYzine HCL 50 MG TABLET PO (04:03)
[2023-01-12 05:13] VITALS: BP 130/87; PULSE 80; TEMP 36.1; O2SAT 95
[2023-01-12] MEDS: Tamsulosin HCL 0.4 MG CAPSULE PO (08:45)
[2023-01-12] MEDS: Gabapentin 100 MG CAPSULE PO ×3 (08:45→21:21)
[2023-01-12] MEDS: Sennosides/Docusate Sodium TABLET 2 TAB PO ×2 (08:45→21:23)
[2023-01-12] MEDS: Venlafaxine HCl ER 75 MG CAP.ER.24H PO (08:45)
[2023-01-12] MEDS: lamoTRIgine 100 MG TABLET PO ×2 (08:48→21:22)
[2023-01-12] MEDS: Divalproex Sodium Sprinkles 125 MG CAP.DR.SPR 250 MG PO ×2 (08:48→21:21)
[2023-01-12] MEDS: amLODIPine Besylate 5 MG TABLET PO (08:49)
--- NOTE | 2023-01-12 12:26 | HO.PSYCHPN ---
Subjective Subjective Date of Service: 01/12/23 Reason For Visit: Depression hopelessness irritability Subjective Notes: Conditional Voluntary Interim History: Patient seen psychiatric follow-up. Patient noted to be COVID positive with minor aches no cough fever pulse oxygen okay. Mood continues to be generally improved Medication Compliance: Yes Mental Status Exam Mental Status Exam Narrative: Appearance: casually groomed, good hygiene, in NAD Behavior: cooperative Psychomotor: no agitation or retardation noted Speech: clear, some delayed in response, soft tone, spontaneous TP: tangential TC: no psychosis, feeling ok future oriented Mood: anxious Affect: brighter, calmer than reported mood SI: denies HI: none Delusions: none Insight/judgment: fair x 2. Memory/cog: alert, oriented x 3. not formally tested. Patient Appearance: Fatigued Patient Orientation: Person, Place, Time and Situation Level of Consciousness: Awake Patient Behavior: Appropriate Behavior Comments: intermittently irritable, belligerent Mood Description: Appropriate, Constricted and Anxious Affect Description: Calm, Appropriate and Constricted Patient Cognition Impaired: Yes Ability to Follow Directions: Good Speech Pattern: Perseverating Memory Description: Episodic Impaired and Working Impaired Diagnostics Vital Signs (24Hr): Vital Signs - 24 hr 01/11/23 18:00 01/12/23 05:13 Temperature 97.1 F 97 F Pulse Rate 86 80 Respiratory Rate 15 Blood Pressure 142/71 H 130/87 Pulse Oximetry 95 95 Oxygen Delivery Method Room Air BMI result Body Mass Index 30.2 Labs 11/13/22 07:43 11/12/22 09:32 Imaging Radiology Impressions: ITS Impressions Chest X-Ray 10/20/22 15:45 IMPRESSION: 1. Low lung volumes with bibasilar linear disc atelectasis versus scarring. 2. No airspace consolidation or effusion. Head CT 11/08/22 12:29 IMPRESSION: No acute intracranial hemorrhage or territorial infarction. Stable chronic postoperative changes with gliosis and encephalomalacia in the right frontal and right temporal lobes. Ex vacuo dilatation of the ventricles and diffuse parenchymal volume loss. Right-sided craniotomy changes. Chest X-Ray 11/12/22 10:32 IMPRESSION: Hypoexpanded lungs with bibasilar platelike atelectasis. Brain MRI 11/12/22 13:15 IMPRESSION: 1. No demonstrated acute intracranial abnormalities. 2. Chronic encephalomalacia of the right temporal, right frontal, and left occipital lobes. Small regions of chronic encephalomalacia in the parasagittal aspects of the bilateral parietal lobes. Moderate underlying microangiopathy and generalized cerebral volume loss. Chest X-Ray 11/14/22 15:52 IMPRESSION: Low lung volumes, bibasilar subsegmental atelectasis and slight elevation of the right hemidiaphragm similar to previous exam. Modified Barium Swallow 11/21/22 15:11 IMPRESSION: Laryngeal penetration on several occasions but no laryngeal aspiration. Mild retention of solid food in the valleculae which cleared with subsequent oral administration of water or thin barium. Correlate with speech therapy results. Medications Medications Current Medications Acetaminophen (Acetaminophen 325 Mg Tablet) 650 mg PO Q6H PRN PRN Reason: Headache/Pain Mild Scale (1-3) Last Admin: 01/12/23 04:02 Dose: 650 mg Albuterol Sulfate (Albuterol Sulfate 90 Mcg 8 Gm Inhaler) 2 puff INHALE Q6H PRN PRN Reason: Wheezing Alprazolam (Alprazolam 0.25 Mg Tablet) 0.25 mg PO Q4H PRN PRN Reason: Anxiety Last Admin: 01/07/23 12:28 Dose: 0.25 mg Alprazolam (Alprazolam 0.5 Mg Tablet) 0.5 mg PO BEDTIME [facility] Last Admin: 01/11/23 21:41 Dose: 0.5 mg Amlodipine Besylate (Amlodipine Besylate 5 Mg Tablet) 5 mg PO DAILY [facility]; Protocol Last Admin: 01/12/23 08:49 Dose: 5 mg Bisacodyl (Bisacodyl 10 Mg Supp.Rect) 10 mg [place] DAILY PRN PRN Reason: Constipation Divalproex Sodium (Divalproex Sodium Sprinkles 125 Mg ) 250 mg PO BID [facility] Last Admin: 01/12/23 08:48 Dose: 250 mg Gabapentin (Gabapentin 100 Mg Capsule) 100 mg PO TID [facility] Last Admin: 01/12/23 08:45 Dose: 100 mg Guaifenesin/Dextromethorphan (Guaifenesin Dm 200/20/10 Ml 10 Ml Syrup) 10 ml PO Q4H PRN PRN Reason: Cough Last Admin: 11/20/22 05:31 Dose: 10 ml Hydroxyzine HCl (Hydroxyzine Hcl 50 Mg Tablet) 50 mg PO Q4H PRN PRN Reason: Anxiety Last Admin: 01/12/23 04:03 Dose: 50 mg Lamotrigine (Lamotrigine 100 Mg Tablet) 100 mg PO BID [facility] Last Admin: 01/12/23 08:48 Dose: 100 mg Latanoprost (Latanoprost 0.005 % Ophth No 2.5 Ml Drops) 1 drop EYE-BOTH BEDTIME [facility] Last Admin: 01/11/23 21:41 Dose: 1 drop Lidocaine (Lidocaine 5 % Ointment 35 Gm) 1 appl TOPICAL QID [facility] Last Admin: 01/12/23 08:58 Dose: Not Given Multi-Ingred Cream/Lotion/Oil/Oint (Mineral Oil/Petrolatum,White 106 Gm Tube) 1 appl TOPICAL BID PRN; Protocol PRN Reason: dry skin Nortriptyline HCl (Nortriptyline Hcl 25 Mg Capsule) 50 mg PO BEDTIME [facility] Last Admin: 01/11/23 21:40 Dose: 50 mg Olanzapine (Olanzapine 2.5 Mg Tablet) 2.5 mg PO DAILY@1500 [facility] Last Admin: 01/11/23 15:38 Dose: 2.5 mg Olanzapine (Olanzapine 5 Mg Tablet) 5 mg PO BEDTIME [facility] Last Admin: 01/11/23 21:40 Dose: 5 mg Ondansetron HCl (Ondansetron Odt 4 Mg Tab.Rapdis) 4 mg TRANSLINGU Q6H PRN PRN Reason: Nausea and Vomiting Last Admin: 01/11/23 08:34 Dose: 4 mg Polyethylene Glycol (Polyethylene Glycol 3350 17 Gm Powd.Pack) 17 gm PO BID [facility] Last Admin: 01/12/23 08:57 Dose: Not Given Senna/Docusate Sodium (Sennosides/Docusate Sodium Tablet) 2 tab PO BID [facility] Last Admin: 01/12/23 08:45 Dose: 2 tab Sodium Biphosphate/Sodium Phosphate (Sodium Phosphate,[place]-Dibasic 133 Ml Enema) 133 ml [place] ONCE PRN PRN Reason: Constipation Tamsulosin HCl (Tamsulosin Hcl 0.4 Mg Capsule) 0.4 mg PO DAILY [facility] Last Admin: 01/12/23 08:45 Dose: 0.4 mg Trazodone HCl (Trazodone Hcl 100 Mg Tablet) 200 mg PO BEDTIME [facility] Last Admin: 01/11/23 21:40 Dose: 200 mg Venlafaxine HCl (Venlafaxine Hcl Er 75 Mg Cap.Er.24h) 75 mg PO DAILY [facility] Last Admin: 01/12/23 08:45 Dose: 75 mg Allergies Allergies Allergy/AdvReac Type Severity Reaction Status Date / Time fentanyl [FENTANYL] Allergy Intermediate unknown Verified 04/08/22 07:00 Assessment & Plan Assessment & Plan (1) Cognitive and neurobehavioral dysfunction following brain injury: Status: Acute Code(s): G31.89 - Other specified degenerative diseases of nervous system; F09 - Unspecified mental disorder due to known physiological condition; S06.9X9S - Unspecified intracranial injury with loss of consciousness of unspecified duration, sequela (2) Major depressive disorder, recurrent severe without psychotic features: Status: Acute Code(s): F33.2 - Major depressive disorder, recurrent severe without psychotic features (3) Swallowing dysfunction: Status: Acute Code(s): R13.10 - Dysphagia, unspecified Plan Patient seems minimally less labile with olanzapine during the day and alprazolam to decrease irritability reactivity monitor for over sedation continue discharge planning Encourage daily strength training lower Effexor to 75 mg in case it is overly stimulating the patient to increased reactivity Start Depakote 125 mg twice a day will start gradually for mood instability 01/05: Continue current plans and regimen 01/06/2023 Patient feels better on Depakote increase Depakote to 125 t.i.d. lower Lamictal 01/07/2023 Increase Depakote to 250 b.i.d. secondary to anxiety reviewed cognitive behavioral strategies 01/08/23 pt seems improved with depakote cont plan of care 01/09/23 Pt seen in f/u mood improved encourage inc perspective cbt skills 01/11: Continue tx plan. 01/12/23 Monitor medical safety ck o 2 isolation cont meds otherwise Patient educated on: medical condition Informed Consent: understands Reason for contiued inpatient stay Substantial Risk for: rapid decompensation and med/psych decompensation Time Spent With Patient Time: Total time managing care of this patient today ____ minutes.
[2023-01-12 13:00] LABS: COVID-19 Test Positive (Negative); IDNOW Serial# 16C4AD1C
[2023-01-12] MEDS: ALPRAZolam 0.25 MG TABLET PO (14:43)
[2023-01-12] MEDS: OLANZapine 2.5 MG TABLET PO (14:43)
[2023-01-12 18:00] VITALS: BP 140/70; PULSE 71; RESP 17; TEMP 36.8; O2SAT 97
[2023-01-12] MEDS: Latanoprost 0.005 % Ophth Sol 2.5 ML DROPS 1 DROP EYE-BOTH (21:22)
[2023-01-12] MEDS: OLANZapine 5 MG TABLET PO (21:22)
[2023-01-12] MEDS: Nortriptyline HCl 25 MG CAPSULE 50 MG PO (21:22)
[2023-01-12] MEDS: traZODone HCL 100 MG TABLET 200 MG PO (21:23)
[2023-01-13] MEDS: hydrOXYzine HCL 50 MG TABLET PO (00:12)
[2023-01-13 07:30] VITALS: BP 146/85; PULSE 96; RESP 16; TEMP 36.3; O2SAT 95
[2023-01-13] MEDS: amLODIPine Besylate 5 MG TABLET PO (10:13)
[2023-01-13] MEDS: Tamsulosin HCL 0.4 MG CAPSULE PO (10:14)
[2023-01-13] MEDS: Sennosides/Docusate Sodium TABLET 2 TAB PO ×2 (10:14→20:59)
[2023-01-13] MEDS: Venlafaxine HCl ER 75 MG CAP.ER.24H PO (10:14)
[2023-01-13] MEDS: Gabapentin 100 MG CAPSULE PO ×3 (10:14→20:58)
[2023-01-13] MEDS: Divalproex Sodium Sprinkles 125 MG CAP.DR.SPR 250 MG PO ×2 (10:15→20:58)
[2023-01-13] MEDS: lamoTRIgine 100 MG TABLET PO ×2 (10:15→21:00)
[2023-01-13] MEDS: Acetaminophen 325 MG TABLET 650 MG PO (10:22)
[2023-01-13] MEDS: ALPRAZolam 0.25 MG TABLET PO (10:23)
--- NOTE | 2023-01-13 15:09 | HO.PSYCHPN ---
Subjective Subjective Date of Service: 01/13/23 Reason For Visit: Depression hopelessness irritability Subjective Notes: Conditional Voluntary Interim History: Patient COVID positive in isolation feeling some fatigue otherwise no shortness breath pulse oxygen good Patient seems to be coping adequately Medication Compliance: Yes Review of Systems Acute medical concerns: Yes COVID positive in isolation no fever shortness breath Mental Status Exam Mental Status Exam Narrative: Appearance: casually groomed, good hygiene, in NAD Behavior: cooperative Psychomotor: no agitation or retardation noted Speech: clear, some delayed in response, soft tone, spontaneous TP: Goal-directed TC: no psychosis, feeling ok future oriented Mood: ?Okay Affect: Appropriate to mood SI: denies HI: none Delusions: none Insight/judgment: fair x 2. Memory/cog: alert, oriented x 3. not formally tested. Patient Appearance: Fatigued Patient Orientation: Person, Place, Time and Situation Level of Consciousness: Awake Patient Behavior: Appropriate Behavior Comments: intermittently irritable, belligerent Mood Description: Appropriate, Constricted and Anxious Affect Description: Calm, Appropriate and Constricted Patient Cognition Impaired: Yes Ability to Follow Directions: Good Speech Pattern: Perseverating Memory Description: Episodic Impaired and Working Impaired Diagnostics Vital Signs (24Hr): Vital Signs - 24 hr 01/12/23 18:00 01/13/23 07:30 Temperature 98.3 F 97.3 F Pulse Rate 71 96 Respiratory Rate 17 16 Blood Pressure 140/70 H 146/85 H Pulse Oximetry 97 95 Oxygen Delivery Method Room Air Room Air BMI result Body Mass Index 30.2 Labs 11/13/22 07:43 11/12/22 09:32 Labs: Laboratory Results - last 48 hr 01/12/23 12:35 COVID-19 ([facility]) Positive A COVID-19 Clin Com See Note Imaging Radiology Impressions: ITS Impressions Chest X-Ray 10/20/22 15:45 IMPRESSION: 1. Low lung volumes with bibasilar linear disc atelectasis versus scarring. 2. No airspace consolidation or effusion. Head CT 11/08/22 12:29 IMPRESSION: No acute intracranial hemorrhage or territorial infarction. Stable chronic postoperative changes with gliosis and encephalomalacia in the right frontal and right temporal lobes. Ex vacuo dilatation of the ventricles and diffuse parenchymal volume loss. Right-sided craniotomy changes. Chest X-Ray 11/12/22 10:32 IMPRESSION: Hypoexpanded lungs with bibasilar platelike atelectasis. Brain MRI 11/12/22 13:15 IMPRESSION: 1. No demonstrated acute intracranial abnormalities. 2. Chronic encephalomalacia of the right temporal, right frontal, and left occipital lobes. Small regions of chronic encephalomalacia in the parasagittal aspects of the bilateral parietal lobes. Moderate underlying microangiopathy and generalized cerebral volume loss. Chest X-Ray 11/14/22 15:52 IMPRESSION: Low lung volumes, bibasilar subsegmental atelectasis and slight elevation of the right hemidiaphragm similar to previous exam. Modified Barium Swallow 11/21/22 15:11 IMPRESSION: Laryngeal penetration on several occasions but no laryngeal aspiration. Mild retention of solid food in the valleculae which cleared with subsequent oral administration of water or thin barium. Correlate with speech therapy results. Medications Medications Current Medications Acetaminophen (Acetaminophen 325 Mg Tablet) 650 mg PO Q6H PRN PRN Reason: Headache/Pain Mild Scale (1-3) Last Admin: 01/13/23 10:22 Dose: 650 mg Albuterol Sulfate (Albuterol Sulfate 90 Mcg 8 Gm Inhaler) 2 puff INHALE Q6H PRN PRN Reason: Wheezing Alprazolam (Alprazolam 0.25 Mg Tablet) 0.25 mg PO Q4H PRN PRN Reason: Anxiety Last Admin: 01/13/23 10:23 Dose: 0.25 mg Amlodipine Besylate (Amlodipine Besylate 5 Mg Tablet) 5 mg PO DAILY [facility]; Protocol Last Admin: 01/13/23 10:13 Dose: 5 mg Bisacodyl (Bisacodyl 10 Mg Supp.Rect) 10 mg MT DAILY PRN PRN Reason: Constipation Divalproex Sodium (Divalproex Sodium Sprinkles 125 Mg ) 250 mg PO BID [facility] Last Admin: 01/13/23 10:15 Dose: 250 mg Gabapentin (Gabapentin 100 Mg Capsule) 100 mg PO TID [facility] Last Admin: 01/13/23 10:14 Dose: 100 mg Guaifenesin/Dextromethorphan (Guaifenesin Dm 200/20/10 Ml 10 Ml Syrup) 10 ml PO Q4H PRN PRN Reason: Cough Last Admin: 11/20/22 05:31 Dose: 10 ml Hydroxyzine HCl (Hydroxyzine Hcl 50 Mg Tablet) 50 mg PO Q4H PRN PRN Reason: Anxiety Last Admin: 01/13/23 00:12 Dose: 50 mg Lamotrigine (Lamotrigine 100 Mg Tablet) 100 mg PO BID [facility] Last Admin: 01/13/23 10:15 Dose: 100 mg Latanoprost (Latanoprost 0.005 % Ophth No 2.5 Ml Drops) 1 drop EYE-BOTH BEDTIME [facility] Last Admin: 01/12/23 21:22 Dose: 1 drop Lidocaine (Lidocaine 5 % Ointment 35 Gm) 1 appl TOPICAL QID [facility] Last Admin: 01/13/23 10:15 Dose: Not Given Multi-Ingred Cream/Lotion/Oil/Oint (Mineral Oil/Petrolatum,White 106 Gm Tube) 1 appl TOPICAL BID PRN; Protocol PRN Reason: dry skin Nortriptyline HCl (Nortriptyline Hcl 25 Mg Capsule) 50 mg PO BEDTIME [facility] Last Admin: 01/12/23 21:22 Dose: 50 mg Olanzapine (Olanzapine 2.5 Mg Tablet) 2.5 mg PO DAILY@1500 [facility] Last Admin: 01/12/23 14:43 Dose: 2.5 mg Olanzapine (Olanzapine 5 Mg Tablet) 5 mg PO BEDTIME [facility] Last Admin: 01/12/23 21:22 Dose: 5 mg Ondansetron HCl (Ondansetron Odt 4 Mg Tab.Rapdis) 4 mg TRANSLINGU Q6H PRN PRN Reason: Nausea and Vomiting Last Admin: 01/11/23 08:34 Dose: 4 mg Polyethylene Glycol (Polyethylene Glycol 3350 17 Gm Powd.Pack) 17 gm PO BID [facility] Last Admin: 01/13/23 10:16 Dose: Not Given Senna/Docusate Sodium (Sennosides/Docusate Sodium Tablet) 2 tab PO BID [facility] Last Admin: 01/13/23 10:14 Dose: 2 tab Sodium Biphosphate/Sodium Phosphate (Sodium Phosphate,Green-Dibasic 133 Ml Enema) 133 ml MT ONCE PRN PRN Reason: Constipation Tamsulosin HCl (Tamsulosin Hcl 0.4 Mg Capsule) 0.4 mg PO DAILY [facility] Last Admin: 01/13/23 10:14 Dose: 0.4 mg Trazodone HCl (Trazodone Hcl 100 Mg Tablet) 200 mg PO BEDTIME [facility] Last Admin: 01/12/23 21:23 Dose: 200 mg Venlafaxine HCl (Venlafaxine Hcl Er 75 Mg Cap.Er.24h) 75 mg PO DAILY [facility] Last Admin: 01/13/23 10:14 Dose: 75 mg Allergies Allergies Allergy/AdvReac Type Severity Reaction Status Date / Time fentanyl [FENTANYL] Allergy Intermediate unknown Verified 04/08/22 07:00 Assessment & Plan Assessment & Plan (1) Cognitive and neurobehavioral dysfunction following brain injury: Status: Acute Code(s): G31.89 - Other specified degenerative diseases of nervous system; F09 - Unspecified mental disorder due to known physiological condition; S06.9X9S - Unspecified intracranial injury with loss of consciousness of unspecified duration, sequela (2) Major depressive disorder, recurrent severe without psychotic features: Status: Acute Code(s): F33.2 - Major depressive disorder, recurrent severe without psychotic features (3) Swallowing dysfunction: Status: Acute Code(s): R13.10 - Dysphagia, unspecified Plan Patient seems minimally less labile with olanzapine during the day and alprazolam to decrease irritability reactivity monitor for over sedation continue discharge planning Encourage daily strength training lower Effexor to 75 mg in case it is overly stimulating the patient to increased reactivity Start Depakote 125 mg twice a day will start gradually for mood instability 01/05: Continue current plans and regimen 01/06/2023 Patient feels better on Depakote increase Depakote to 125 t.i.d. lower Lamictal 01/07/2023 Increase Depakote to 250 b.i.d. secondary to anxiety reviewed cognitive behavioral strategies 01/08/23 pt seems improved with depakote cont plan of care 01/09/23 Pt seen in f/u mood improved encourage inc perspective cbt skills 01/11: Continue tx plan. 01/12/23 Monitor medical safety ck o 2 isolation cont meds otherwise 2022 Continue Effexor Depakote Lamictal monitor patient for more acute COVID symptoms continue isolation Patient educated on: medication risk/benefits, therapeutic strategies and medical condition Informed Consent: understands Reason for contiued inpatient stay Substantial Risk for: harm to self, inability to function and rapid decompensation Time Spent With Patient Time: Total time managing care of this patient today ____ minutes.
[2023-01-13] MEDS: OLANZapine 2.5 MG TABLET PO (16:24)
[2023-01-13] MEDS: traZODone HCL 100 MG TABLET 200 MG PO (20:59)
[2023-01-13] MEDS: Nortriptyline HCl 25 MG CAPSULE 50 MG PO (20:59)
[2023-01-13] MEDS: OLANZapine 5 MG TABLET PO (20:59)
[2023-01-13] MEDS: Latanoprost 0.005 % Ophth Sol 2.5 ML DROPS 1 DROP EYE-BOTH (21:00)
[2023-01-13] MEDS: Lidocaine 5 % Ointment 35 GM 1 APPL TOPICAL (21:01)
[2023-01-13 21:38] VITALS: BP 142/66; PULSE 71; RESP 18; TEMP 36.6; O2SAT 98
[2023-01-14] MEDS: Acetaminophen 325 MG TABLET 650 MG PO ×2 (03:45→15:57)
[2023-01-14 06:00] VITALS: BP 133/83; PULSE 80; RESP 18; TEMP 36.3; O2SAT 94
[2023-01-14 09:11] LABS: Valproate 42.7 mcg/mL (50.0-100.0)
[2023-01-14] MEDS: Divalproex Sodium Sprinkles 125 MG CAP.DR.SPR 250 MG PO ×2 (10:10→21:32)
[2023-01-14] MEDS: Tamsulosin HCL 0.4 MG CAPSULE PO (10:10)
[2023-01-14] MEDS: amLODIPine Besylate 5 MG TABLET PO (10:10)
[2023-01-14] MEDS: lamoTRIgine 100 MG TABLET PO ×2 (10:10→21:18)
[2023-01-14] MEDS: Venlafaxine HCl ER 75 MG CAP.ER.24H PO (10:10)
[2023-01-14] MEDS: Gabapentin 100 MG CAPSULE PO ×3 (10:11→21:16)
--- NOTE | 2023-01-14 11:50 | P.PNPSI_ITS ---
Subjective Subjective Date of Service: 01/14/23 Reason For Visit: Depression hopelessness irritability Subjective Notes: Conditional Voluntary Healthcare Proxy: No Guardianship: No Interim History: Patient in isolation status post positive COVID having somewhat more of a difficult time. Became quite reactive felt insulted by staff member earlier at fairly intense reaction. Patient wishes he could be more resilient with her we have discussed different strategies Medication Compliance: Yes Mental Status Exam Mental Status Exam Narrative: Patient Appearance: Fatigued Patient Orientation: Person, Place, Time and Situation Level of Consciousness: Awake Patient Behavior: Appropriate Behavior Comments: intermittently irritable, belligerent Mood Description: Appropriate, Constricted and Anxious Affect Description: Calm, Appropriate and Constricted Patient Cognition Impaired: Yes Ability to Follow Directions: Good Speech Pattern: Perseverating Memory Description: Episodic Impaired and Working Impaired Hallucinations: None Delusions: Not Present Diagnostics Vital Signs (24Hr): Vital Signs - 24 hr 01/13/23 21:38 01/14/23 06:00 Temperature 97.8 F 97.4 F Pulse Rate 71 80 Respiratory Rate 18 18 Blood Pressure 142/66 H 133/83 Pulse Oximetry 98 94 Oxygen Delivery Method Room Air Room Air BMI result Body Mass Index 30.2 Labs 11/13/22 07:43 11/12/22 09:32 Labs: Laboratory Results - last 48 hr 01/12/23 01/14/23 12:35 08:50 Valproic Acid 42.7 L COVID-19 ([facility]) Positive A COVID-19 Clin Com See Note Imaging Radiology Impressions: ITS Impressions Chest X-Ray 10/20/22 15:45 IMPRESSION: 1. Low lung volumes with bibasilar linear disc atelectasis versus scarring. 2. No airspace consolidation or effusion. Head CT 11/08/22 12:29 IMPRESSION: No acute intracranial hemorrhage or territorial infarction. Stable chronic postoperative changes with gliosis and encephalomalacia in the right frontal and right temporal lobes. Ex vacuo dilatation of the ventricles and diffuse parenchymal volume loss. Right-sided craniotomy changes. Chest X-Ray 11/12/22 10:32 IMPRESSION: Hypoexpanded lungs with bibasilar platelike atelectasis. Brain MRI 11/12/22 13:15 IMPRESSION: 1. No demonstrated acute intracranial abnormalities. 2. Chronic encephalomalacia of the right temporal, right frontal, and left occipital lobes. Small regions of chronic encephalomalacia in the parasagittal aspects of the bilateral parietal lobes. Moderate underlying microangiopathy and generalized cerebral volume loss. Chest X-Ray 11/14/22 15:52 IMPRESSION: Low lung volumes, bibasilar subsegmental atelectasis and slight elevation of the right hemidiaphragm similar to previous exam. Modified Barium Swallow 11/21/22 15:11 IMPRESSION: Laryngeal penetration on several occasions but no laryngeal aspiration. Mild retention of solid food in the valleculae which cleared with subsequent oral administration of water or thin barium. Correlate with speech therapy results. Medications Medications Current Medications Acetaminophen (Acetaminophen 325 Mg Tablet) 650 mg PO Q6H PRN PRN Reason: Headache/Pain Mild Scale (1-3) Last Admin: 01/14/23 03:45 Dose: 650 mg Albuterol Sulfate (Albuterol Sulfate 90 Mcg 8 Gm Inhaler) 2 puff INHALE Q6H PRN PRN Reason: Wheezing Alprazolam (Alprazolam 0.25 Mg Tablet) 0.25 mg PO Q4H PRN PRN Reason: Anxiety Last Admin: 01/13/23 10:23 Dose: 0.25 mg Amlodipine Besylate (Amlodipine Besylate 5 Mg Tablet) 5 mg PO DAILY [facility]; Protocol Last Admin: 01/14/23 10:10 Dose: 5 mg Bisacodyl (Bisacodyl 10 Mg Supp.Rect) 10 mg [place] DAILY PRN PRN Reason: Constipation Divalproex Sodium (Divalproex Sodium Sprinkles 125 Mg ) 250 mg PO BID [facility] Last Admin: 01/14/23 10:10 Dose: 250 mg Gabapentin (Gabapentin 100 Mg Capsule) 100 mg PO TID [facility] Last Admin: 01/14/23 10:11 Dose: 100 mg Guaifenesin/Dextromethorphan (Guaifenesin Dm 200/20/10 Ml 10 Ml Syrup) 10 ml PO Q4H PRN PRN Reason: Cough Last Admin: 11/20/22 05:31 Dose: 10 ml Hydroxyzine HCl (Hydroxyzine Hcl 50 Mg Tablet) 50 mg PO Q4H PRN PRN Reason: Anxiety Last Admin: 01/13/23 00:12 Dose: 50 mg Lamotrigine (Lamotrigine 100 Mg Tablet) 100 mg PO BID [facility] Last Admin: 01/14/23 10:10 Dose: 100 mg Latanoprost (Latanoprost 0.005 % Ophth No 2.5 Ml Drops) 1 drop EYE-BOTH BEDTIME [facility] Last Admin: 01/13/23 21:00 Dose: 1 drop Lidocaine (Lidocaine 5 % Ointment 35 Gm) 1 appl TOPICAL QID [facility] Last Admin: 01/14/23 10:11 Dose: Not Given Multi-Ingred Cream/Lotion/Oil/Oint (Mineral Oil/Petrolatum,White 106 Gm Tube) 1 appl TOPICAL BID PRN; Protocol PRN Reason: dry skin Nortriptyline HCl (Nortriptyline Hcl 25 Mg Capsule) 50 mg PO BEDTIME [facility] Last Admin: 01/13/23 20:59 Dose: 50 mg Olanzapine (Olanzapine 2.5 Mg Tablet) 2.5 mg PO DAILY@1500 [facility] Last Admin: 01/13/23 16:24 Dose: 2.5 mg Olanzapine (Olanzapine 5 Mg Tablet) 5 mg PO BEDTIME [facility] Last Admin: 01/13/23 20:59 Dose: 5 mg Ondansetron HCl (Ondansetron Odt 4 Mg Tab.Rapdis) 4 mg TRANSLINGU Q6H PRN PRN Reason: Nausea and Vomiting Last Admin: 01/11/23 08:34 Dose: 4 mg Polyethylene Glycol (Polyethylene Glycol 3350 17 Gm Powd.Pack) 17 gm PO BID [facility] Last Admin: 01/14/23 10:11 Dose: Not Given Senna/Docusate Sodium (Sennosides/Docusate Sodium Tablet) 2 tab PO BID [facility] Last Admin: 01/14/23 10:11 Dose: Not Given Sodium Biphosphate/Sodium Phosphate (Sodium Phosphate,Burke-Dibasic 133 Ml Enema) 133 ml [place] ONCE PRN PRN Reason: Constipation Tamsulosin HCl (Tamsulosin Hcl 0.4 Mg Capsule) 0.4 mg PO DAILY [facility] Last Admin: 01/14/23 10:10 Dose: 0.4 mg Trazodone HCl (Trazodone Hcl 100 Mg Tablet) 200 mg PO BEDTIME [facility] Last Admin: 01/13/23 20:59 Dose: 200 mg Venlafaxine HCl (Venlafaxine Hcl Er 75 Mg Cap.Er.24h) 75 mg PO DAILY [facility] Last Admin: 01/14/23 10:10 Dose: 75 mg Allergies Allergies Allergy/AdvReac Type Severity Reaction Status Date / Time fentanyl [FENTANYL] Allergy Intermediate unknown Verified 04/08/22 07:00 Assessment & Plan Assessment & Plan (1) Cognitive and neurobehavioral dysfunction following brain injury: Status: Acute Code(s): G31.89 - Other specified degenerative diseases of nervous system; F09 - Unspecified mental disorder due to known physiological condition; S06.9X9S - Unspecified intracranial injury with loss of consciousness of unspecified duration, sequela (2) Major depressive disorder, recurrent severe without psychotic features: Status: Acute Code(s): F33.2 - Major depressive disorder, recurrent severe without psychotic features (3) Swallowing dysfunction: Status: Acute Code(s): R13.10 - Dysphagia, unspecified Plan Patient seems minimally less labile with olanzapine during the day and alprazol am to decrease irritability reactivity monitor for over sedation continue discharge planning Encourage daily strength training lower Effexor to 75 mg in case it is overly stimulating the patient to increased reactivity Start Depakote 125 mg twice a day will start gradually for mood instability 01/05: Continue current plans and regimen 01/06/2023 Patient feels better on Depakote increase Depakote to 125 t.i.d. lower Lamictal 01/07/2023 Increase Depakote to 250 b.i.d. secondary to anxiety reviewed cognitive behavioral strategies 01/08/23 pt seems improved with depakote cont plan of care 01/09/23 Pt seen in f/u mood improved encourage inc perspective cbt skills 01/11: Continue tx plan. 01/12/23 Monitor medical safety ck o 2 isolation cont meds otherwise 2022 Continue Effexor Depakote Lamictal monitor patient for more acute COVID symptoms continue isolation 01/14/2023 Increase Depakote 375 mg twice a day Depakote level 40 to encourage CBT strategies continue continue isolation Reason for contiued inpatient stay Substantial Risk for: harm to self and rapid decompensation Time Spent With Patient Time: Total time managing care of this patient today ____ minutes.
[2023-01-14] MEDS: ALPRAZolam 0.25 MG TABLET PO ×2 (15:57→21:16)
[2023-01-14] MEDS: OLANZapine 2.5 MG TABLET PO (15:57)
[2023-01-14 18:00] VITALS: BP 144/66; PULSE 75; RESP 18; TEMP 36.6; O2SAT 98
[2023-01-14] MEDS: Latanoprost 0.005 % Ophth Sol 2.5 ML DROPS 1 DROP EYE-BOTH (21:00)
[2023-01-14] MEDS: Nortriptyline HCl 25 MG CAPSULE 50 MG PO (21:17)
[2023-01-14] MEDS: traZODone HCL 100 MG TABLET 200 MG PO (21:18)
[2023-01-14] MEDS: OLANZapine 5 MG TABLET PO (21:18)
[2023-01-15] MEDS: hydrOXYzine HCL 50 MG TABLET PO (00:36)
[2023-01-15] MEDS: ALPRAZolam 0.25 MG TABLET PO (04:27)
[2023-01-15] MEDS: Acetaminophen 325 MG TABLET 650 MG PO (04:27)
[2023-01-15 09:41] VITALS: BP 129/64; PULSE 79; RESP 18; O2SAT 95
[2023-01-15] MEDS: Gabapentin 100 MG CAPSULE PO ×3 (09:42→21:55)
[2023-01-15] MEDS: Divalproex Sodium Sprinkles 125 MG CAP.DR.SPR 375 MG PO ×2 (09:42→21:55)
[2023-01-15] MEDS: Venlafaxine HCl ER 75 MG CAP.ER.24H PO (09:43)
[2023-01-15] MEDS: Tamsulosin HCL 0.4 MG CAPSULE PO (09:43)
[2023-01-15] MEDS: Sennosides/Docusate Sodium TABLET 2 TAB PO ×2 (09:43→21:56)
[2023-01-15] MEDS: amLODIPine Besylate 5 MG TABLET PO (09:43)
[2023-01-15] MEDS: lamoTRIgine 100 MG TABLET PO ×2 (09:44→21:56)
[2023-01-15] MEDS: OLANZapine 2.5 MG TABLET PO (14:20)
[2023-01-15 18:00] VITALS: BP 150/70; PULSE 74; RESP 18; TEMP 36.4; O2SAT 96
[2023-01-15] MEDS: traZODone HCL 100 MG TABLET 200 MG PO (21:55)
[2023-01-15] MEDS: OLANZapine 5 MG TABLET PO (21:55)
[2023-01-15] MEDS: Nortriptyline HCl 25 MG CAPSULE 50 MG PO (21:55)
--- NOTE | 2023-01-15 22:35 | P.PNPSI_ITS ---
Subjective Subjective Date of Service: 01/15/23 Reason For Visit: Depression hopelessness irritability Subjective Notes: Conditional Voluntary Healthcare Proxy: No Guardianship: No Interim History: pt in isolation dysphoric but trying to ride it out depakote 375 bid Medication Compliance: Yes Mental Status Exam Mental Status Exam Narrative: Patient Appearance: Fatigued Patient Orientation: Person, Place, Time and Situation Level of Consciousness: Awake Patient Behavior: Appropriate Behavior Comments: intermittently irritable, belligerent Mood Description: Appropriate, Constricted and Anxious Affect Description: Calm, Appropriate and Constricted Patient Cognition Impaired: Yes Ability to Follow Directions: Good Speech Pattern: Perseverating Memory Description: Episodic Impaired and Working Impaired Hallucinations: None Delusions: Not Present Diagnostics Vital Signs (24Hr): Vital Signs - 24 hr 01/15/23 09:41 01/15/23 18:00 Temperature 97.5 F Pulse Rate 79 74 Respiratory Rate 18 18 Blood Pressure 129/64 150/70 H Pulse Oximetry 95 96 Oxygen Delivery Method Room Air Room Air BMI result Body Mass Index 30.2 Labs 11/13/22 07:43 11/12/22 09:32 Labs: Laboratory Results - last 48 hr 01/14/23 08:50 Valproic Acid 42.7 L Imaging Radiology Impressions: ITS Impressions Chest X-Ray 10/20/22 15:45 IMPRESSION: 1. Low lung volumes with bibasilar linear disc atelectasis versus scarring. 2. No airspace consolidation or effusion. Head CT 11/08/22 12:29 IMPRESSION: No acute intracranial hemorrhage or territorial infarction. Stable chronic postoperative changes with gliosis and encephalomalacia in the right frontal and right temporal lobes. Ex vacuo dilatation of the ventricles and diffuse parenchymal volume loss. Right-sided craniotomy changes. Chest X-Ray 11/12/22 10:32 IMPRESSION: Hypoexpanded lungs with bibasilar platelike atelectasis. Brain MRI 11/12/22 13:15 IMPRESSION: 1. No demonstrated acute intracranial abnormalities. 2. Chronic encephalomalacia of the right temporal, right frontal, and left occipital lobes. Small regions of chronic encephalomalacia in the parasagittal aspects of the bilateral parietal lobes. Moderate underlying microangiopathy and generalized cerebral volume loss. Chest X-Ray 11/14/22 15:52 IMPRESSION: Low lung volumes, bibasilar subsegmental atelectasis and slight elevation of the right hemidiaphragm similar to previous exam. Modified Barium Swallow 11/21/22 15:11 IMPRESSION: Laryngeal penetration on several occasions but no laryngeal aspiration. Mild retention of solid food in the valleculae which cleared with subsequent oral administration of water or thin barium. Correlate with speech therapy results. Medications Medications Current Medications Acetaminophen (Acetaminophen 325 Mg Tablet) 650 mg PO Q6H PRN PRN Reason: Headache/Pain Mild Scale (1-3) Last Admin: 01/15/23 04:27 Dose: 650 mg Albuterol Sulfate (Albuterol Sulfate 90 Mcg 8 Gm Inhaler) 2 puff INHALE Q6H PRN PRN Reason: Wheezing Alprazolam (Alprazolam 0.25 Mg Tablet) 0.25 mg PO Q4H PRN PRN Reason: Anxiety Last Admin: 01/15/23 04:27 Dose: 0.25 mg Amlodipine Besylate (Amlodipine Besylate 5 Mg Tablet) 5 mg PO DAILY [facility]; Prot ocol Last Admin: 01/15/23 09:43 Dose: 5 mg Bisacodyl (Bisacodyl 10 Mg Supp.Rect) 10 mg [place] DAILY PRN PRN Reason: Constipation Divalproex Sodium (Divalproex Sodium Sprinkles 125 Mg ) 375 mg PO BID [facility] Last Admin: 01/15/23 21:55 Dose: 375 mg Gabapentin (Gabapentin 100 Mg Capsule) 100 mg PO TID [facility] Last Admin: 01/15/23 21:55 Dose: 100 mg Guaifenesin/Dextromethorphan (Guaifenesin Dm 200/20/10 Ml 10 Ml Syrup) 10 ml PO Q4H PRN PRN Reason: Cough Last Admin: 11/20/22 05:31 Dose: 10 ml Hydroxyzine HCl (Hydroxyzine Hcl 50 Mg Tablet) 50 mg PO Q4H PRN PRN Reason: Anxiety Last Admin: 01/15/23 00:36 Dose: 50 mg Lamotrigine (Lamotrigine 100 Mg Tablet) 100 mg PO BID [facility] Last Admin: 01/15/23 21:56 Dose: 100 mg Latanoprost (Latanoprost 0.005 % Ophth No 2.5 Ml Drops) 1 drop EYE-BOTH BEDT [facility] Last Admin: 01/14/23 21:00 Dose: 1 drop Lidocaine (Lidocaine 5 % Ointment 35 Gm) 1 appl TOPICAL QID [facility] Last Admin: 01/15/23 17:08 Dose: Not Given Multi-Ingred Cream/Lotion/Oil/Oint (Mineral Oil/Petrolatum,White 106 Gm Tube) 1 appl TOPICAL BID PRN; Protocol PRN Reason: dry skin Nortriptyline HCl (Nortriptyline Hcl 25 Mg Capsule) 50 mg PO BEDTIME [facility] Last Admin: 01/15/23 21:55 Dose: 50 mg Olanzapine (Olanzapine 2.5 Mg Tablet) 2.5 mg PO DAILY@1500 [facility] Last Admin: 01/15/23 14:20 Dose: 2.5 mg Olanzapine (Olanzapine 5 Mg Tablet) 5 mg PO BEDTIME [facility] Last Admin: 01/15/23 21:55 Dose: 5 mg Ondansetron HCl (Ondansetron Odt 4 Mg Tab.Rapdis) 4 mg TRANSLINGU Q6H PRN PRN Reason: Nausea and Vomiting Last Admin: 01/11/23 08:34 Dose: 4 mg Polyethylene Glycol (Polyethylene Glycol 3350 17 Gm Powd.Pack) 17 gm PO BID [facility] Last Admin: 01/15/23 21:56 Dose: 17 gm Senna/Docusate Sodium (Sennosides/Docusate Sodium Tablet) 2 tab PO BID [facility] Last Admin: 01/15/23 21:56 Dose: 2 tab Sodium Biphosphate/Sodium Phosphate (Sodium Phosphate,[place]-Dibasic 133 Ml Enema) 133 ml [place] ONCE PRN PRN Reason: Constipation Tamsulosin HCl (Tamsulosin Hcl 0.4 Mg Capsule) 0.4 mg PO DAILY [facility] Last Admin: 01/15/23 09:43 Dose: 0.4 mg Trazodone HCl (Trazodone Hcl 100 Mg Tablet) 200 mg PO BEDTIME [facility] Last Admin: 01/15/23 21:55 Dose: 200 mg Venlafaxine HCl (Venlafaxine Hcl Er 75 Mg Cap.Er.24h) 75 mg PO DAILY [facility] Last Admin: 01/15/23 09:43 Dose: 75 mg Allergies Allergies Allergy/AdvReac Type Severity Reaction Status Date / Time fentanyl [FENTANYL] Allergy Intermediate unknown Verified 04/08/22 07:00 Assessment & Plan Assessment & Plan (1) Cognitive and neurobehavioral dysfunction following brain injury: Status: Acute Code(s): G31.89 - Other specified degenerative diseases of nervous system; F09 - Unspecified mental disorder due to known physiological condition; S06.9X9S - Unspecified intracranial injury with loss of consciousness of unspecified duration, sequela (2) Major depressive disorder, recurrent severe without psychotic features: Status: Acute Code(s): F33.2 - Major depressive disorder, recurrent severe without psychotic features (3) Swallowing dysfunction: Status: Acute Code(s): R13.10 - Dysphagia, unspecified Plan Patient seems minimally less labile with olanzapine during the day and alprazolam to decrease irritability reactivity monitor for over sedation continue discharge planning Encourage daily strength training lower Effexor to 75 mg in case it is overly stimulating the patient to increased reactivity Start Depakote 125 mg twice a day will start gradually for mood instability 01/05: Continue current plans and regimen 01/06/2023 Patient feels better on Depakote increase Depakote to 125 t.i.d. lower Lamictal 01/07/2023 Increase Depakote to 250 b.i.d. secondary to anxiety reviewed cognitive behavioral strategies 01/08/23 pt seems improved with depakote cont plan of care 01/09/23 Pt seen in f/u mood improved encourage inc perspective cbt skills 01/11: Continue tx plan. 01/12/23 Monitor medical safety ck o 2 isolation cont meds otherwise 2022 Continue Effexor Depakote Lamictal monitor patient for more acute COVID symptoms continue isolation 01/14/2023 Increase Depakote 375 mg twice a day Depakote level 40 to encourage CBT strategies continue continue isolation 01/15/23 cont plan of care Reason for contiued inpatient stay Substantial Risk for: inability to function, rapid decompensation and med/psych decompensation Time Spent With Patient Time: Total time managing care of this patient today ____ minutes.
[2023-01-16] MEDS: Acetaminophen 325 MG TABLET 650 MG PO ×2 (05:52→21:44)
[2023-01-16] MEDS: hydrOXYzine HCL 50 MG TABLET PO ×2 (05:55→13:50)
[2023-01-16 06:00] VITALS: BP 173/70; PULSE 83; RESP 20; TEMP 36.6; O2SAT 93
--- NOTE | 2023-01-16 09:05 | P.PNPSI_ITS ---
Subjective Subjective Date of Service: 01/16/23 Reason For Visit: Depression hopelessness irritability Subjective Notes: Conditional Voluntary Interim History: Patient having difficulty with isolation can become quite discouraged Needs much support Medication Compliance: Yes Attending Groups: No (In isolation) Mental Status Exam Mental Status Exam Narrative: Patient Appearance: Fatigued Patient Orientation: Person, Place, Time and Situation Level of Consciousness: Awake Patient Behavior: Appropriate Behavior Comments: Somewhat sad looking Mood Description: Appropriate, Constricted and Anxious Affect Description: Constricted, Depressed and Apprehensive Patient Cognition Impaired: Yes Ability to Follow Directions: Good Speech Pattern: Perseverating Memory Description: Episodic Impaired and Working Impaired Hallucinations: None Delusions: Not Present Thought Content: positive for Preoccupation, negative for Suicidal Ideation or negative for Homicidal Ideation Depressive Symptoms: Increased Anxiety, Crying Spells and Loss of Int. in Activity Diagnostics Vital Signs (24Hr): Vital Signs - 24 hr 01/15/23 09:41 01/15/23 18:00 Temperature 97.5 F Pulse Rate 79 74 Respiratory Rate 18 18 Blood Pressure 129/64 150/70 H Pulse Oximetry 95 96 Oxygen Delivery Method Room Air Room Air BMI result Body Mass Index 30.2 Labs 11/13/22 07:43 11/12/22 09:32 Labs: Laboratory Results - last 48 hr 01/14/23 08:50 Valproic Acid 42.7 L Imaging Radiology Impressions: ITS Impressions Chest X-Ray 10/20/22 15:45 IMPRESSION: 1. Low lung volumes with bibasilar linear disc atelectasis versus scarring. 2. No airspace consolidation or effusion. Head CT 11/08/22 12:29 IMPRESSION: No acute intracranial hemorrhage or territorial infarction. Stable chronic postoperative changes with gliosis and encephalomalacia in the right frontal and right temporal lobes. Ex vacuo dilatation of the ventricles and diffuse parenchymal volume loss. Right-sided craniotomy changes. Chest X-Ray 11/12/22 10:32 IMPRESSION: Hypoexpanded lungs with bibasilar platelike atelectasis. Brain MRI 11/12/22 13:15 IMPRESSION: 1. No demonstrated acute intracranial abnormalities. 2. Chronic encephalomalacia of the right temporal, right frontal, and left occipital lobes. Small regions of chronic encephalomalacia in the parasagittal aspects of the bilateral parietal lobes. Moderate underlying microangiopathy and generalized cerebral volume loss. Chest X-Ray 11/14/22 15:52 IMPRESSION: Low lung volumes, bibasilar subsegmental atelectasis and slight elevation of the right hemidiaphragm similar to previous exam. Modified Barium Swallow 11/21/22 15:11 IMPRESSION: Laryngeal penetration on several occasions but no laryngeal aspiration. Mild retention of solid food in the valleculae which cleared with subsequent oral administration of water or thin barium. Correlate with speech therapy results. Medications Medications Current Medications Acetaminophen (Acetaminophen 325 Mg Tablet) 650 mg PO Q6H PRN PRN Reason: Headache/Pain Mild Scale (1-3) Last Admin: 01/16/23 05:52 Dose: 650 mg Albuterol Sulfate (Albuterol Sulfate 90 Mcg 8 Gm Inhaler) 2 puff INHALE Q6H PRN PRN Reason: Wheezing Alprazolam (Alprazolam 0.25 Mg Tablet) 0.25 mg PO Q4H PRN PRN Reason: Anxiety Last Admin: 01/15/23 04:27 Dose: 0.25 mg Amlodipine Besylate (Amlodipine Besylate 5 Mg Tablet) 5 mg PO DAILY [facility]; Protocol Last Admin: 01/15/23 09:43 Dose: 5 mg Bisacodyl (Bisacodyl 10 Mg Supp.Rect) 10 mg [place] DAILY PRN PRN Reason: Constipation Divalproex Sodium (Divalproex Sodium Sprinkles 125 Mg ) 375 mg PO BID [facility] Last Admin: 01/15/23 21:55 Dose: 375 mg Gabapentin (Gabapentin 100 Mg Capsule) 100 mg PO TID [facility] Last Admin: 01/15/23 21:55 Dose: 100 mg Guaifenesin/Dextromethorphan (Guaifenesin Dm 200/20/10 Ml 10 Ml Syrup) 10 ml PO Q4H PRN PRN Reason: Cough Last Admin: 11/20/22 05:31 Dose: 10 ml Hydroxyzine HCl (Hydroxyzine Hcl 50 Mg Tablet) 50 mg PO Q4H PRN PRN Reason: Anxiety Last Admin: 01/16/23 05:55 Dose: 50 mg Lamotrigine (Lamotrigine 100 Mg Tablet) 100 mg PO BID [facility] Last Admin: 01/15/23 21:56 Dose: 100 mg Latanoprost (Latanoprost 0.005 % Ophth No 2.5 Ml Drops) 1 drop EYE-BOTH BEDTIME [facility] Last Admin: 01/15/23 22:40 Dose: Not Given Lidocaine (Lidocaine 5 % Ointment 35 Gm) 1 appl TOPICAL QID [facility] Last Admin: 01/15/23 22:40 Dose: Not Given Multi-Ingred Cream/Lotion/Oil/Oint (Mineral Oil/Petrolatum,White 106 Gm Tube) 1 appl TOPICAL BID PRN; Protocol PRN Reason: dry skin Nortriptyline HCl (Nortriptyline Hcl 25 Mg Capsule) 50 mg PO BEDTIME [facility] Last Admin: 01/15/23 21:55 Dose: 50 mg Olanzapine (Olanzapine 2.5 Mg Tablet) 2.5 mg PO DAILY@1500 [facility] Last Admin: 01/15/23 14:20 Dose: 2.5 mg Olanzapine (Olanzapine 5 Mg Tablet) 5 mg PO BEDTIME [facility] Last Admin: 01/15/23 21:55 Dose: 5 mg Ondansetron HCl (Ondansetron Odt 4 Mg Tab.Rapdis) 4 mg TRANSLINGU Q6H PRN PRN Reason: Nausea and Vomiting Last Admin: 01/11/23 08:34 Dose: 4 mg Polyethylene Glycol (Polyethylene Glycol 3350 17 Gm Powd.Pack) 17 gm PO BID [facility] Last Admin: 01/15/23 22:41 Dose: Not Given Senna/Docusate Sodium (Sennosides/Docusate Sodium Tablet) 2 tab PO BID [facility] Last Admin: 01/15/23 21:56 Dose: 2 tab Sodium Biphosphate/Sodium Phosphate (Sodium Phosphate,[place]-Dibasic 133 Ml Enema) 133 ml [place] ONCE PRN PRN Reason: Constipation Tamsulosin HCl (Tamsulosin Hcl 0.4 Mg Capsule) 0.4 mg PO DAILY [facility] Last Admin: 01/15/23 09:43 Dose: 0.4 mg Trazodone HCl (Trazodone Hcl 100 Mg Tablet) 200 mg PO BEDTIME [facility] Last Admin: 01/15/23 21:55 Dose: 200 mg Venlafaxine HCl (Venlafaxine Hcl Er 75 Mg Cap.Er.24h) 75 mg PO DAILY [facility] Last Admin: 01/15/23 09:43 Dose: 75 mg Allergies Allergies Allergy/AdvReac Type Severity Reaction Status Date / Time fentanyl [FENTANYL] Allergy Intermediate unknown Verified 04/08/22 07:00 Assessment & Plan Assessment & Plan (1) Cognitive and neurobehavioral dysfunction following brain injury: Status: Acute Code(s): G31.89 - Other specified degenerative diseases of nervous system; F09 - Unspecified mental disorder due to known physiological condition; S06.9X9S - Unspecified intracranial injury with loss of consciousness of unspecified duration, sequela (2) Major depressive disorder, recurrent severe without psychotic features: Status: Acute Code(s): F33.2 - Major depressive disorder, recurrent severe without psychotic features (3) Swallowing dysfunction: Status: Acute Code(s): R13.10 - Dysphagia, unspecified Plan Patient seems minimally less labile with olanzapine during the day and alprazolam to decrease irritability reactivity monitor for over sedation continue discharge planning Encourage daily strength training lower Effexor to 75 mg in case it is overly stimulating the patient to increased reactivity Start Depakote 125 mg twice a day will start gradually for mood instability 01/05: Continue current plans and regimen 01/06/2023 Patient feels better on Depakote increase Depakote to 125 t.i.d. lower Lamictal 01/07/2023 Increase Depakote to 250 b.i.d. secondary to anxiety reviewed cognitive behavioral strategies 01/08/23 pt seems improved with depakote cont plan of care 01/09/23 Pt seen in f/u mood improved encourage inc perspective cbt skills 01/11: Continue tx plan. 01/12/23 Monitor medical safety ck o 2 isolation cont meds otherwise 2022 Continue Effexor Depakote Lamictal monitor patient for more acute COVID symptoms continue isolation 01/14/2023 Continue plan of care encourage coping strategies reading Increase Depakote 375 mg twice a day Depakote level 40 to encourage CBT strategies continue continue isolation 01/15/23 cont plan of care 01/16/2023 Patient needs much reassurance and support continue medication encourage persp ective coping strategies Patient educated on: therapeutic strategies and medical condition Informed Consent: understands Reason for contiued inpatient stay Substantial Risk for: inability to function and rapid decompensation Time Spent With Patient Time: 28
[2023-01-16] MEDS: Sennosides/Docusate Sodium TABLET 2 TAB PO (10:50)
[2023-01-16] MEDS: Divalproex Sodium Sprinkles 125 MG CAP.DR.SPR 375 MG PO ×2 (10:50→21:47)
[2023-01-16] MEDS: lamoTRIgine 100 MG TABLET PO ×2 (10:51→21:50)
[2023-01-16] MEDS: Gabapentin 100 MG CAPSULE PO ×3 (10:51→21:49)
[2023-01-16] MEDS: Venlafaxine HCl ER 75 MG CAP.ER.24H PO (10:51)
[2023-01-16] MEDS: Tamsulosin HCL 0.4 MG CAPSULE PO (10:52)
[2023-01-16] MEDS: amLODIPine Besylate 5 MG TABLET PO (10:55)
[2023-01-16] MEDS: OLANZapine 2.5 MG TABLET PO (15:29)
[2023-01-16 18:00] VITALS: BP 146/82; PULSE 84; RESP 16; TEMP 35.8; O2SAT 93
[2023-01-16] MEDS: Latanoprost 0.005 % Ophth Sol 2.5 ML DROPS 1 DROP EYE-BOTH (21:43)
[2023-01-16] MEDS: ALPRAZolam 0.5 MG TABLET PO (21:46)
[2023-01-16] MEDS: Nortriptyline HCl 25 MG CAPSULE 50 MG PO (21:51)
[2023-01-16] MEDS: OLANZapine 5 MG TABLET PO (21:51)
[2023-01-16] MEDS: traZODone HCL 100 MG TABLET 200 MG PO (21:52)
[2023-01-16] MEDS: Lidocaine 5 % Ointment 35 GM 1 APPL TOPICAL (21:53)
[2023-01-17] MEDS: hydrOXYzine HCL 50 MG TABLET PO (06:17)
[2023-01-17 07:30] VITALS: BP 131/80; PULSE 80; RESP 16; TEMP 36.7; O2SAT 92
--- NOTE | 2023-01-17 08:46 | P.PNPSI_ITS ---
Subjective Subjective Date of Service: 01/17/23 Reason For Visit: Depression hopelessness irritability Subjective Notes: Conditional Voluntary Interim History: Patient has been tolerating his isolation with difficulty Medication Compliance: Yes Diagnostics Vital Signs (24Hr): Vital Signs - 24 hr 01/16/23 18:00 Temperature 96.5 F L Pulse Rate 84 Respiratory Rate 16 Blood Pressure 146/82 H Pulse Oximetry 93 Oxygen Delivery Method Room Air BMI result Body Mass Index 30.2 Labs 11/13/22 07:43 11/12/22 09:32 Imaging Radiology Impressions: ITS Impressions Chest X-Ray 10/20/22 15:45 IMPRESSION: 1. Low lung volumes with bibasilar linear disc atelectasis versus scarring. 2. No airspace consolidation or effusion. Head CT 11/08/22 12:29 IMPRESSION: No acute intracranial hemorrhage or territorial infarction. Stable chronic postoperative changes with gliosis and encephalomalacia in the right frontal and right temporal lobes. Ex vacuo dilatation of the ventricles and diffuse parenchymal volume loss. Right-sided craniotomy changes. Chest X-Ray 11/12/22 10:32 IMPRESSION: Hypoexpanded lungs with bibasilar platelike atelectasis. Brain MRI 11/12/22 13:15 IMPRESSION: 1. No demonstrated acute intracranial abnormalities. 2. Chronic encephalomalacia of the right temporal, right frontal, and left occipital lobes. Small regions of chronic encephalomalacia in the parasagittal aspects of the bilateral parietal lobes. Moderate underlying microangiopathy and generalized cerebral volume loss. Chest X-Ray 11/14/22 15:52 IMPRESSION: Low lung volumes, bibasilar subsegmental atelectasis and slight elevation of the right hemidiaphragm similar to previous exam. Modified Barium Swallow 11/21/22 15:11 IMPRESSION: Laryngeal penetration on several occasions but no laryngeal aspiration. Mild retention of solid food in the valleculae which cleared with subsequent oral administration of water or thin barium. Correlate with speech therapy results. Medications Medications Current Medications Acetaminophen (Acetaminophen 325 Mg Tablet) 650 mg PO Q6H PRN PRN Reason: Headache/Pain Mild Scale (1-3) Last Admin: 01/16/23 21:44 Dose: 650 mg Albuterol Sulfate (Albuterol Sulfate 90 Mcg 8 Gm Inhaler) 2 puff INHALE Q6H PRN PRN Reason: Wheezing Alprazolam (Alprazolam 0.5 Mg Tablet) 0.5 mg PO BEDTIME [facility] Last Admin: 01/16/23 21:46 Dose: 0.5 mg Alprazolam (Alprazolam 0.25 Mg Tablet) 0.25 mg PO Q4H PRN PRN Reason: Anxiety Amlodipine Besylate (Amlodipine Besylate 5 Mg Tablet) 5 mg PO DAILY [facility]; Protocol Last Admin: 01/16/23 10:55 Dose: 5 mg Bisacodyl (Bisacodyl 10 Mg Supp.Rect) 10 mg [place] DAILY PRN PRN Reason: Constipation Divalproex Sodium (Divalproex Sodium Sprinkles 125 Mg Cap.) 375 mg PO BID [facility] Last Admin: 01/16/23 21:47 Dose: 375 mg Gabapentin (Gabapentin 100 Mg Capsule) 100 mg PO TID [facility] Last Admin: 01/16/23 21:49 Dose: 100 mg Guaifenesin/Dextromethorphan (Guaifenesin Dm 200/20/10 Ml 10 Ml Syrup) 10 ml PO Q4H PRN PRN Reason: Cough Last Admin: 11/20/22 05:31 Dose: 10 ml Hydroxyzine HCl (Hydroxyzine Hcl 50 Mg Tablet) 50 mg PO Q4H PRN PRN Reason: Anxiety Last Admin: 01/17/23 06:17 Dose: 50 mg Lamotrigine (Lamotrigine 100 Mg Tablet) 100 mg PO BID [facility] Last Admin: 01/16/23 21:50 Dose: 100 mg Latanoprost (Latanoprost 0.005 % Ophth No 2.5 Ml Drops) 1 drop EYE-BOTH BEDTIME [facility] Last Admin: 01/16/23 21:43 Dose: 1 drop Lidocaine (Lidocaine 5 % Ointment 35 Gm) 1 appl TOPICAL QID [facility] Last Admin: 01/16/23 21:53 Dose: 1 appl Multi-Ingred Cream/Lotion/Oil/Oint (Mineral Oil/Petrolatum,White 106 Gm Tube) 1 appl TOPICAL BID PRN; Protocol PRN Reason: dry skin Nortriptyline HCl (Nortriptyline Hcl 25 Mg Capsule) 50 mg PO BEDTIME [facility] Last Admin: 01/16/23 21:51 Dose: 50 mg Olanzapine (Olanzapine 2.5 Mg Tablet) 2.5 mg PO DAILY@1500 [facility] Last Admin: 01/16/23 15:29 Dose: 2.5 mg Olanzapine (Olanzapine 5 Mg Tablet) 5 mg PO BEDTIME [facility] Last Admin: 01/16/23 21:51 Dose: 5 mg Ondansetron HCl (Ondansetron Odt 4 Mg Tab.Rapdis) 4 mg TRANSLINGU Q6H PRN PRN Reason: Nausea and Vomiting Last Admin: 01/11/23 08:34 Dose: 4 mg Polyethylene Glycol (Polyethylene Glycol 3350 17 Gm Powd.Pack) 17 gm PO BID [facility] Last Admin: 01/16/23 22:44 Dose: Not Given Senna/Docusate Sodium (Sennosides/Docusate Sodium Tablet) 2 tab PO BID [facility] Last Admin: 01/16/23 21:52 Dose: Not Given Sodium Biphosphate/Sodium Phosphate (Sodium Phosphate,[place]-Dibasic 133 Ml Enema) 133 ml [place] ONCE PRN PRN Reason: Constipation Tamsulosin HCl (Tamsulosin Hcl 0.4 Mg Capsule) 0.4 mg PO DAILY [facility] Last Admin: 01/16/23 10:52 Dose: 0.4 mg Trazodone HCl (Trazodone Hcl 100 Mg Tablet) 200 mg PO BEDTIME [facility] Last Admin: 01/16/23 21:52 Dose: 200 mg Venlafaxine HCl (Venlafaxine Hcl Er 75 Mg Cap.Er.24h) 75 mg PO DAILY [facility] Last Admin: 01/16/23 10:51 Dose: 75 mg Allergies Allergies Allergy/AdvReac Type Severity Reaction Status Date / Time fentanyl [FENTANYL] Allergy Intermediate unknown Verified 04/08/22 07:00 Assessment & Plan Assessment & Plan (1) Cognitive and neurobehavioral dysfunction following brain injury: Status: Acute Code(s): G31.89 - Other specified degenerative diseases of nervous system; F09 - Unspecified mental disorder due to known physiological condition; S06.9X9S - Unspecified intracranial injury with loss of consciousness of unspecified duration, sequela (2) Major depressive disorder, recurrent severe without psychotic features: Status: Acute Code(s): F33.2 - Major depressive disorder, recurrent severe without psychotic features (3) Swallowing dysfunction: Status: Acute Code(s): R13.10 - Dysphagia, unspecified Plan Patient seems minimally less labile with olanzapine during the day and alprazola m to decrease irritability reactivity monitor for over sedation continue discharge planning Encourage daily strength training lower Effexor to 75 mg in case it is overly stimulating the patient to increased reactivity Start Depakote 125 mg twice a day will start gradually for mood instability 01/05: Continue current plans and regimen 01/06/2023 Patient feels better on Depakote increase Depakote to 125 t.i.d. lower Lamictal 01/07/2023 Increase Depakote to 250 b.i.d. secondary to anxiety reviewed cognitive behavioral strategies 01/08/23 pt seems improved with depakote cont plan of care 01/09/23 Pt seen in f/u mood improved encourage inc perspective cbt skills 01/11: Continue tx plan. 01/12/23 Monitor medical safety ck o 2 isolation cont meds otherwise 2022 Continue Effexor Depakote Lamictal monitor patient for more acute COVID symptoms continue isolation 01/14/2023 Continue plan of care encourage coping strategies reading Increase Depakote 375 mg twice a day Depakote level 40 to encourage CBT strategies continue continue isolation 01/15/23 cont plan of care 01/16/2023 Patient needs much reassurance and support continue medication encourage perspective coping strategies 01/17/2023 Continue plan of care Reason for contiued inpatient stay Substantial Risk for: harm to self and inability to function Time Spent With Patient Time: Total time managing care of this patient today ____ minutes.
[2023-01-17] MEDS: lamoTRIgine 100 MG TABLET PO ×2 (09:17→21:40)
[2023-01-17] MEDS: Sennosides/Docusate Sodium TABLET 2 TAB PO ×2 (09:17→21:36)
[2023-01-17] MEDS: Venlafaxine HCl ER 75 MG CAP.ER.24H PO (09:17)
[2023-01-17] MEDS: Divalproex Sodium Sprinkles 125 MG CAP.DR.SPR 375 MG PO ×2 (09:17→21:40)
[2023-01-17] MEDS: Gabapentin 100 MG CAPSULE PO ×3 (09:18→21:37)
[2023-01-17] MEDS: amLODIPine Besylate 5 MG TABLET PO (09:18)
[2023-01-17] MEDS: Tamsulosin HCL 0.4 MG CAPSULE PO (09:18)
[2023-01-17] MEDS: OLANZapine 2.5 MG TABLET PO (17:01)
[2023-01-17 18:00] VITALS: BP 149/93; PULSE 77; RESP 18; TEMP 36.4; O2SAT 94
[2023-01-17] MEDS: ALPRAZolam 0.5 MG TABLET PO (21:36)
[2023-01-17] MEDS: Acetaminophen 325 MG TABLET 650 MG PO (21:37)
[2023-01-17] MEDS: Nortriptyline HCl 25 MG CAPSULE 50 MG PO (21:39)
[2023-01-17] MEDS: OLANZapine 5 MG TABLET PO (21:41)
[2023-01-17] MEDS: Latanoprost 0.005 % Ophth Sol 2.5 ML DROPS 1 DROP EYE-BOTH (21:48)
[2023-01-17] MEDS: Lidocaine 5 % Ointment 35 GM 1 APPL TOPICAL (21:51)
[2023-01-18] MEDS: traZODone HCL 100 MG TABLET 200 MG PO ×2 (01:22→22:19)
[2023-01-18 07:30] VITALS: BP 153/83; PULSE 82; RESP 15; TEMP 36.2; O2SAT 97
[2023-01-18] MEDS: Venlafaxine HCl ER 75 MG CAP.ER.24H PO (08:40)
[2023-01-18] MEDS: Tamsulosin HCL 0.4 MG CAPSULE PO (08:40)
[2023-01-18] MEDS: Gabapentin 100 MG CAPSULE PO ×3 (08:41→22:18)
[2023-01-18] MEDS: Divalproex Sodium Sprinkles 125 MG CAP.DR.SPR 375 MG PO ×2 (08:41→22:18)
[2023-01-18] MEDS: lamoTRIgine 100 MG TABLET PO ×2 (08:41→22:18)
[2023-01-18] MEDS: Sennosides/Docusate Sodium TABLET 2 TAB PO (08:41)
[2023-01-18] MEDS: amLODIPine Besylate 5 MG TABLET PO (08:41)
[2023-01-18] MEDS: OLANZapine 2.5 MG TABLET PO (14:56)
[2023-01-18] MEDS: Acetaminophen 325 MG TABLET 650 MG PO (17:11)
[2023-01-18] MEDS: hydrOXYzine HCL 50 MG TABLET PO (17:11)
[2023-01-18 18:00] VITALS: BP 135/76; PULSE 84; RESP 18; TEMP 36.4; O2SAT 94
--- NOTE | 2023-01-18 20:08 | HO.PSYCHPN ---
Subjective Subjective Date of Service: 01/18/23 Reason For Visit: Depression hopelessness irritability Subjective Notes: Conditional Voluntary Healthcare Proxy: No Guardianship: No Interim History: Patient alert and awake mood has shown some improvement trying to deal with the isolation Medication Compliance: Yes Attending Groups: No Review of Systems Patient in isolation had positive COVID Mental Status Exam Mental Status Exam Narrative: Patient Appearance: Appropriate Patient Orientation: Person, Place, Time and Situation Level of Consciousness: Awake Patient Behavior: Appropriate Behavior Comments: Somewhat sad looking Mood Description: Appropriate and Constricted Affect Description: Constricted, Depressed and Apprehensive Patient Cognition Impaired: Yes Ability to Follow Directions: Good Speech Pattern: Perseverating Memory Description: Episodic Impaired and Working Impaired Hallucinations: None Delusions: Not Present Thought Content: positive for Preoccupation, negative for Suicidal Ideation or negative for Homicidal Ideation Depressive Symptoms: Increased Anxiety, Crying Spells and Loss of Int. in Activity Diagnostics Vital Signs (24Hr): Vital Signs - 24 hr 01/18/23 07:30 Temperature 97.2 F Pulse Rate 82 Respiratory Rate 15 Blood Pressure 153/83 H Pulse Oximetry 97 Oxygen Delivery Method Room Air BMI result Body Mass Index 30.2 Labs 11/13/22 07:43 11/12/22 09:32 Imaging Radiology Impressions: ITS Impressions Chest X-Ray 10/20/22 15:45 IMPRESSION: 1. Low lung volumes with bibasilar linear disc atelectasis versus scarring. 2. No airspace consolidation or effusion. Head CT 11/08/22 12:29 IMPRESSION: No acute intracranial hemorrhage or territorial infarction. Stable chronic postoperative changes with gliosis and encephalomalacia in the right frontal and right temporal lobes. Ex vacuo dilatation of the ventricles and diffuse parenchymal volume loss. Right-sided craniotomy changes. Chest X-Ray 11/12/22 10:32 IMPRESSION: Hypoexpanded lungs with bibasilar platelike atelectasis. Brain MRI 11/12/22 13:15 IMPRESSION: 1. No demonstrated acute intracranial abnormalities. 2. Chronic encephalomalacia of the right temporal, right frontal, and left occipital lobes. Small regions of chronic encephalomalacia in the parasagittal aspects of the bilateral parietal lobes. Moderate underlying microangiopathy and generalized cerebral volume loss. Chest X-Ray 11/14/22 15:52 IMPRESSION: Low lung volumes, bibasilar subsegmental atelectasis and slight elevation of the right hemidiaphragm similar to previous exam. Modified Barium Swallow 11/21/22 15:11 IMPRESSION: Laryngeal penetration on several occasions but no laryngeal aspiration. Mild retention of solid food in the valleculae which cleared with subsequent oral administration of water or thin barium. Correlate with speech therapy results. Medications Medications Current Medications Acetaminophen (Acetaminophen 325 Mg Tablet) 650 mg PO Q6H PRN PRN Reason: Headache/Pain Mild Scale (1-3) Last Admin: 01/18/23 17:11 Dose: 650 mg Albuterol Sulfate (Albuterol Sulfate 90 Mcg 8 Gm Inhaler) 2 puff INHALE Q6H PRN PRN Reason: Wheezing Alprazolam (Alprazolam 0.5 Mg Tablet) 0.5 mg PO BEDTIME REPLACED BY [facility] Last Admin: 01/17/23 21:36 Dose: 0.5 mg Alprazolam (Alprazolam 0.25 Mg Tablet) 0.25 mg PO Q4H PRN PRN Reason: Anxiety Amlodipine Besylate (Amlodipine Besylate 5 Mg Tablet) 5 mg PO DAILY REPLACED BY [facility]; Protocol Last Admin: 01/18/23 08:41 Dose: 5 mg Bisacodyl (Bisacodyl 10 Mg Supp.Rect) [address] DAILY PRN PRN Reason: Constipation Divalproex Sodium (Divalproex Sodium Sprinkles 125 Mg ) 375 mg PO BID REPLACED BY [facility] Last Admin: 01/18/23 08:41 Dose: 375 mg Gabapentin (Gabapentin 100 Mg Capsule) 100 mg PO TID REPLACED BY [facility] Last Admin: 01/18/23 14:56 Dose: 100 mg Guaifenesin/Dextromethorphan (Guaifenesin Dm 200/20/10 Ml 10 Ml Syrup) 10 ml PO Q4H PRN PRN Reason: Cough Last Admin: 11/20/22 05:31 Dose: 10 ml Hydroxyzine HCl (Hydroxyzine Hcl 50 Mg Tablet) 50 mg PO Q4H PRN PRN Reason: Anxiety Last Admin: 01/18/23 17:11 Dose: 50 mg Lamotrigine (Lamotrigine 100 Mg Tablet) 100 mg PO BID REPLACED BY [facility] Last Admin: 01/18/23 08:41 Dose: 100 mg Latanoprost (Latanoprost 0.005 % Ophth No 2.5 Ml Drops) 1 drop EYE-BOTH BEDTIME REPLACED BY [facility] Last Admin: 01/17/23 21:48 Dose: 1 drop Lidocaine (Lidocaine 5 % Ointment 35 Gm) 1 appl TOPICAL QID REPLACED BY [facility] Last Admin: 01/18/23 16:30 Dose: Not Given Multi-Ingred Cream/Lotion/Oil/Oint (Mineral Oil/Petrolatum,White 106 Gm Tube) 1 appl TOPICAL BID PRN; Protocol PRN Reason: dry skin Nortriptyline HCl (Nortriptyline Hcl 25 Mg Capsule) 50 mg PO BEDTIME REPLACED BY [facility] Last Admin: 01/17/23 21:39 Dose: 50 mg Olanzapine (Olanzapine 2.5 Mg Tablet) 2.5 mg PO DAILY@1500 REPLACED BY [facility] Last Admin: 01/18/23 14:56 Dose: 2.5 mg Olanzapine (Olanzapine 5 Mg Tablet) 5 mg PO BEDTIME REPLACED BY [facility] Last Admin: 01/17/23 21:41 Dose: 5 mg Ondansetron HCl (Ondansetron Odt 4 Mg Tab.Rapdis) 4 mg TRANSLINGU Q6H PRN PRN Reason: Nausea and Vomiting Last Admin: 01/11/23 08:34 Dose: 4 mg Polyethylene Glycol (Polyethylene Glycol 3350 17 Gm Powd.Pack) 17 gm PO BID REPLACED BY [facility] Last Admin: 01/18/23 11:51 Dose: Not Given Senna/Docusate Sodium (Sennosides/Docusate Sodium Tablet) 2 tab PO BID REPLACED BY [facility] Last Admin: 01/18/23 08:41 Dose: 2 tab Sodium Biphosphate/Sodium Phosphate (Sodium Phosphate,[place]-Dibasic 133 Ml Enema) [address] ONCE PRN PRN Reason: Constipation Tamsulosin HCl (Tamsulosin Hcl 0.4 Mg Capsule) 0.4 mg PO DAILY REPLACED BY [facility] Last Admin: 01/18/23 08:40 Dose: 0.4 mg Trazodone HCl (Trazodone Hcl 100 Mg Tablet) 200 mg PO BEDTIME REPLACED BY [facility] Last Admin: 01/18/23 01:22 Dose: 200 mg Venlafaxine HCl (Venlafaxine Hcl Er 75 Mg Cap.Er.24h) 75 mg PO DAILY REPLACED BY [facility] Last Admin: 01/18/23 08:40 Dose: 75 mg Allergies Allergies Allergy/AdvReac Type Severity Reaction Status Date / Time fentanyl [FENTANYL] Allergy Intermediate unknown Verified 04/08/22 07:00 Assessment & Plan Assessment & Plan (1) Cognitive and neurobehavioral dysfunction following brain injury: Status: Acute Code(s): G31.89 - Other specified degenerative diseases of nervous system; F09 - Unspecified mental disorder due to known physiological condition; S06.9X9S - Unspecified intracranial injury with loss of consciousness of unspecified duration, sequela (2) Major depressive disorder, recurrent severe without psychotic features: Status: Acute Code(s): F33.2 - Major depressive disorder, recurrent severe without psychotic features (3) Swallowing dysfunction: Status: Acute Code(s): R13.10 - Dysphagia, unspecified Plan Patient seems minimally less labile with olanzapine during the day and alprazolam to decrease irritability reactivity monitor for over sedation continue discharge planning Encourage daily strength training lower Effexor to 75 mg in case it is overly stimulating the patient to increased reactivity Start Depakote 125 mg twice a day will start gradually for mood instability 01/05: Continue current plans and regimen 01/06/2023 Patient feels better on Depakote increase Depakote to 125 t.i.d. lower Lamictal 01/07/2023 Increase Depakote to 250 b.i.d. secondary to anxiety reviewed cognitive behavioral strategies 01/08/23 pt seems improved with depakote cont plan of care 01/09/23 Pt seen in f/u mood improved encourage inc perspective cbt skills 01/11: Continue tx plan. 01/12/23 Monitor medical safety ck o 2 isolation cont meds otherwise 2022 Continue Effexor Depakote Lamictal monitor patient for more acute COVID symptoms continue isolation 01/14/2023 Continue plan of care encourage coping strategies reading Increase Depakote 375 mg twice a day Depakote level 40 to encourage CBT strategies continue continue isolation 01/15/23 cont plan of care 01/16/2023 Patient needs much reassurance and support continue medication encourage perspective coping strategies 01/17/2023 Continue plan of care 01/18/2023 Continue to monitor response to need for isolation and recent COVID Patient educated on: diagnosis Informed Consent: understands Reason for contiued inpatient stay Substantial Risk for: harm to self and rapid decompensation Time Spent With Patient Time: Total time managing care of this patient today ____ minutes.
[2023-01-18] MEDS: Nortriptyline HCl 25 MG CAPSULE 50 MG PO (22:16)
[2023-01-18] MEDS: ALPRAZolam 0.5 MG TABLET PO (22:16)
[2023-01-18] MEDS: OLANZapine 5 MG TABLET PO (22:19)
[2023-01-18] MEDS: Latanoprost 0.005 % Ophth Sol 2.5 ML DROPS 1 DROP EYE-BOTH (22:23)
--- NOTE | 2023-01-18 22:26 | PC.NURSE ---
Pt refused to take scheduled laxatives saying he is having loose stools.
[2023-01-19 06:00] VITALS: BP 126/82; PULSE 86; RESP 20; TEMP 36.2; O2SAT 96
[2023-01-19] MEDS: Acetaminophen 325 MG TABLET 650 MG PO ×3 (06:59→20:52)
[2023-01-19] MEDS: ALPRAZolam 0.25 MG TABLET PO ×2 (07:00→12:32)
[2023-01-19] MEDS: Divalproex Sodium Sprinkles 125 MG CAP.DR.SPR 375 MG PO ×2 (09:32→20:51)
[2023-01-19] MEDS: polyethylene glycoL 3350 17 GM POWD.PACK PO (09:32)
[2023-01-19] MEDS: lamoTRIgine 100 MG TABLET PO ×2 (09:33→20:51)
[2023-01-19] MEDS: Gabapentin 100 MG CAPSULE PO ×3 (09:33→20:51)
[2023-01-19] MEDS: Sennosides/Docusate Sodium TABLET 2 TAB PO (09:33)
[2023-01-19] MEDS: Tamsulosin HCL 0.4 MG CAPSULE PO (09:33)
[2023-01-19] MEDS: Venlafaxine HCl ER 75 MG CAP.ER.24H PO (09:33)
[2023-01-19] MEDS: amLODIPine Besylate 5 MG TABLET PO (09:34)
--- NOTE | 2023-01-19 13:14 | MHC.SLORD ---
Speech Language Pathology Order Status: Per RN, pt agitated, threw lunch tray- No PO trials given this date. Discussed with RN, pt's tray did appear to be empty, eaten. No complaints at this time. Pt has laminated resource with written swallow strategies, which he refers to. Pt in isolation unit, w/ [facility]. SNOUT PULLER will continue to check in with pt on a weekly basis.
[2023-01-19] MEDS: OLANZapine 2.5 MG TABLET PO ×2 (13:44→15:36)
[2023-01-19] MEDS: Lidocaine 5 % Ointment 35 GM 1 APPL TOPICAL (17:37)
[2023-01-19 18:00] VITALS: BP 142/69; PULSE 72; RESP 17; TEMP 36.2; O2SAT 97
[2023-01-19] MEDS: hydrOXYzine HCL 50 MG TABLET PO (20:51)
[2023-01-19] MEDS: traZODone HCL 100 MG TABLET 200 MG PO (20:51)
[2023-01-19] MEDS: OLANZapine 5 MG TABLET PO (20:51)
[2023-01-19] MEDS: Nortriptyline HCl 25 MG CAPSULE 50 MG PO (20:51)
[2023-01-19] MEDS: ALPRAZolam 0.5 MG TABLET PO (20:51)
[2023-01-19] MEDS: Latanoprost 0.005 % Ophth Sol 2.5 ML DROPS 1 DROP EYE-BOTH (20:52)
--- NOTE | 2023-01-19 22:29 | HO.PSYCHPN ---
Subjective Subjective Date of Service: 01/19/23 Reason For Visit: Depression hopelessness irritability Subjective Notes: Conditional Voluntary Interim History: pt has been inc depressed irascible hopeless helpless Medication Compliance: Yes Mental Status Exam Mental Status Exam Narrative: Patient Appearance: Appropriate Patient Orientation: Person, Place, Time and Situation Level of Consciousness: Awake Patient Behavior: Guarded, Anxious and Impulsive Behavior Comments: Somewhat sad looking Mood Description: Appropriate and Constricted Affect Description: Constricted, Depressed and Apprehensive Patient Cognition Impaired: Yes Ability to Follow Directions: Good Speech Pattern: Perseverating Memory Description: Episodic Impaired and Working Impaired Hallucinations: None Delusions: Not Present Thought Process: Rumination Thought Content: positive for Preoccupation, negative for Suicidal Ideation or negative for Homicidal Ideation Depressive Symptoms: Increased Anxiety, Crying Spells and Loss of Int. in Activity Judgement: Fair Diagnostics Vital Signs (24Hr): Vital Signs - 24 hr 01/19/23 06:00 01/19/23 18:00 Temperature 97.2 F 97.2 F Pulse Rate 86 72 Respiratory Rate 20 17 Blood Pressure 126/82 142/69 H Pulse Oximetry 96 97 Oxygen Delivery Method Room Air Room Air BMI result Body Mass Index 30.2 Labs 11/13/22 07:43 11/12/22 09:32 Imaging Radiology Impressions: ITS Impressions Chest X-Ray 10/20/22 15:45 IMPRESSION: 1. Low lung volumes with bibasilar linear disc atelectasis versus scarring. 2. No airspace consolidation or effusion. Head CT 11/08/22 12:29 IMPRESSION: No acute intracranial hemorrhage or territorial infarction. Stable chronic postoperative changes with gliosis and encephalomalacia in the right frontal and right temporal lobes. Ex vacuo dilatation of the ventricles and diffuse parenchymal volume loss. Right-sided craniotomy changes. Chest X-Ray 11/12/22 10:32 IMPRESSION: Hypoexpanded lungs with bibasilar platelike atelectasis. Brain MRI 11/12/22 13:15 IMPRESSION: 1. No demonstrated acute intracranial abnormalities. 2. Chronic encephalomalacia of the right temporal, right frontal, and left occipital lobes. Small regions of chronic encephalomalacia in the parasagittal aspects of the bilateral parietal lobes. Moderate underlying microangiopathy and generalized cerebral volume loss. Chest X-Ray 11/14/22 15:52 IMPRESSION: Low lung volumes, bibasilar subsegmental atelectasis and slight elevation of the right hemidiaphragm similar to previous exam. Modified Barium Swallow 11/21/22 15:11 IMPRESSION: Laryngeal penetration on several occasions but no laryngeal aspiration. Mild retention of solid food in the valleculae which cleared with subsequent oral administration of water or thin barium. Correlate with speech therapy results. Medications Medications Current Medications Acetaminophen (Acetaminophen 325 Mg Tablet) 650 mg PO Q6H PRN PRN Reason: Headache/Pain Mild Scale (1-3) Last Admin: 01/19/23 20:52 Dose: 650 mg Albuterol Sulfate (Albuterol Sulfate 90 Mcg 8 Gm Inhaler) 2 puff INHALE Q6H PRN PRN Reason: Wheezing Alprazolam (Alprazolam 0.5 Mg Tablet) 0.5 mg PO BEDTIME [facility] Last Admin: 01/19/23 20:51 Dose: 0.5 mg Alprazolam (Alprazolam 0.25 Mg Tablet) 0.25 mg PO Q4H PRN PRN Reason: Anxiety Last Admin: 01/19/23 12:32 Dose: 0.25 mg Amlodipine Besylate (Amlodipine Besylate 5 Mg Tablet) 5 mg PO DAILY [facility]; Protocol Last Admin: 01/19/23 09:34 Dose: 5 mg Bisacodyl (Bisacodyl 10 Mg Supp.Rect) 10 mg [place] DAILY PRN PRN Reason: Constipation Divalproex Sodium (Divalproex Sodium Sprinkles 125 Mg ) 375 mg PO BID [facility] Last Admin: 01/19/23 20:51 Dose: 375 mg Gabapentin (Gabapentin 100 Mg Capsule) 100 mg PO TID [facility] Last Admin: 01/19/23 20:51 Dose: 100 mg Guaifenesin/Dextromethorphan (Guaifenesin Dm 200/20/10 Ml 10 Ml Syrup) 10 ml PO Q4H PRN PRN Reason: Cough Last Admin: 11/20/22 05:31 Dose: 10 ml Hydroxyzine HCl (Hydroxyzine Hcl 50 Mg Tablet) 50 mg PO Q4H PRN PRN Reason: Anxiety Last Admin: 01/19/23 20:51 Dose: 50 mg Lamotrigine (Lamotrigine 100 Mg Tablet) 100 mg PO BID [facility] Last Admin: 01/19/23 20:51 Dose: 100 mg Latanoprost (Latanoprost 0.005 % Ophth No 2.5 Ml Drops) 1 drop EYE-BOTH BEDTIME [facility] Last Admin: 01/19/23 20:52 Dose: 1 drop Lidocaine (Lidocaine 5 % Ointment 35 Gm) 1 appl TOPICAL QID [facility] Last Admin: 01/19/23 21:01 Dose: Not Given Multi-Ingred Cream/Lotion/Oil/Oint (Mineral Oil/Petrolatum,White 106 Gm Tube) 1 appl TOPICAL BID PRN; Protocol PRN Reason: dry skin Nortriptyline HCl (Nortriptyline Hcl 25 Mg Capsule) 50 mg PO BEDTIME [facility] Last Admin: 01/19/23 20:51 Dose: 50 mg Olanzapine (Olanzapine 2.5 Mg Tablet) 2.5 mg PO DAILY [facility] Last Admin: 01/19/23 13:44 Dose: 2.5 mg Olanzapine (Olanzapine 2.5 Mg Tablet) 2.5 mg PO DAILY@1500 [facility] Last Admin: 01/19/23 15:36 Dose: 2.5 mg Olanzapine (Olanzapine 5 Mg Tablet) 5 mg PO BEDTIME [facility] Last Admin: 01/19/23 20:51 Dose: 5 mg Ondansetron HCl (Ondansetron Odt 4 Mg Tab.Rapdis) 4 mg TRANSLINGU Q6H PRN PRN Reason: Nausea and Vomiting Last Admin: 01/11/23 08:34 Dose: 4 mg Polyethylene Glycol (Polyethylene Glycol 3350 17 Gm Powd.Pack) 17 gm PO BID [facility] Last Admin: 01/19/23 21:00 Dose: Not Given Senna/Docusate Sodium (Sennosides/Docusate Sodium Tablet) 2 tab PO BID [facility] Last Admin: 01/19/23 21:00 Dose: Not Given Sodium Biphosphate/Sodium Phosphate (Sodium Phosphate,[place]-Dibasic 133 Ml Enema) 133 ml [place] ONCE PRN PRN Reason: Constipation Tamsulosin HCl (Tamsulosin Hcl 0.4 Mg Capsule) 0.4 mg PO DAILY [facility] Last Admin: 01/19/23 09:33 Dose: 0.4 mg Trazodone HCl (Trazodone Hcl 100 Mg Tablet) 200 mg PO BEDTIME [facility] Last Admin: 01/19/23 20:51 Dose: 200 mg Venlafaxine HCl (Venlafaxine Hcl Er 75 Mg Cap.Er.24h) 75 mg PO DAILY [facility] Last Admin: 01/19/23 09:33 Dose: 75 mg Allergies Allergies Allergy/AdvReac Type Severity Reaction Status Date / Time fentanyl [FENTANYL] Allergy Intermediate unknown Verified 04/08/22 07:00 Assessment & Plan Assessment & Plan (1) Cognitive and neurobehavioral dysfunction following brain injury: Status: Acute Code(s): G31.89 - Other specified degenerative diseases of nervous system; F09 - Unspecified mental disorder due to known physiological condition; S06.9X9S - Unspecified intracranial injury with loss of consciousness of unspecified duration, sequela (2) Major depressive disorder, recurrent severe without psychotic features: Status: Acute Code(s): F33.2 - Major depressive disorder, recurrent severe without psychotic features (3) Swallowing dysfunction: Status: Acute Code(s): R13.10 - Dysphagia, unspecified Plan Patient seems minimally less labile with olanzapine during the day and alprazolam to decrease irritability reactivity monitor for over sedation continue discharge planning Encourage daily strength training lower Effexor to 75 mg in case it is overly stimulating the patient to increased reactivity Start Depakote 125 mg twice a day will start gradually for mood instability 01/05: Continue current plans and regimen 01/06/2023 Patient feels better on Depakote increase Depakote to 125 t.i.d. lower Lamictal 01/07/2023 Increase Depakote to 250 b.i.d. secondary to anxiety reviewed cognitive behavioral strategies 01/08/23 pt seems improved with depakote cont plan of care 01/09/23 Pt seen in f/u mood improved encourage inc perspective cbt skills 01/11: Continue tx plan. 01/12/23 Monitor medical safety ck o 2 isolation cont meds otherwise 2022 Continue Effexor Depakote Lamictal monitor patient for more acute COVID symptoms continue isolation 01/14/2023 Continue plan of care encourage coping strategies reading Increase Depakote 375 mg twice a day Depakote level 40 to encourage CBT strategies continue continue isolation 01/15/23 cont plan of care 01/16/2023 Patient needs much reassurance and support continue medication encourage perspective coping strategies 01/17/2023 Continue plan of care 01/18/2023 Continue to monitor response to need for isolation and recent COVID 01/19/23 Pt seen in f/u mood depressed agitated inc depakote inc zyprexa for mood stability Reason for contiued inpatient stay Substantial Risk for: harm to self, rapid decompensation and med/psych decompensation Time Spent With Patient Time: Total time managing care of this patient today ____ minutes.
[2023-01-20] MEDS: Venlafaxine HCl ER 75 MG CAP.ER.24H PO (09:29)
[2023-01-20 09:30] VITALS: BP 128/77; PULSE 84; RESP 16; TEMP 36.3; O2SAT 97
[2023-01-20] MEDS: OLANZapine 2.5 MG TABLET PO ×2 (09:30→15:37)
[2023-01-20] MEDS: lamoTRIgine 100 MG TABLET PO ×2 (09:30→21:22)
[2023-01-20] MEDS: amLODIPine Besylate 5 MG TABLET PO (09:30)
[2023-01-20] MEDS: Divalproex Sodium Sprinkles 125 MG CAP.DR.SPR 375 MG PO ×2 (09:31→21:16)
[2023-01-20] MEDS: Tamsulosin HCL 0.4 MG CAPSULE PO (09:31)
[2023-01-20] MEDS: Gabapentin 100 MG CAPSULE PO ×3 (09:31→21:22)
[2023-01-20] MEDS: polyethylene glycoL 3350 17 GM POWD.PACK PO (09:32)
[2023-01-20] MEDS: Sennosides/Docusate Sodium TABLET 2 TAB PO ×2 (09:39→21:18)
[2023-01-20] MEDS: Lidocaine 5 % Ointment 35 GM 1 APPL TOPICAL ×2 (12:02→21:27)
--- NOTE | 2023-01-20 14:52 | HO.PSYCHPN ---
Subjective Subjective Date of Service: 01/20/23 Reason For Visit: Depression hopelessness irritability Subjective Notes: Conditional Voluntary Interim History: Patient showing some improvement with olanzapine increase Depakote less labile Medication Compliance: Yes Mental Status Exam Mental Status Exam Narrative: Patient Appearance: Appropriate Patient Orientation: Person, Place, Time and Situation Level of Consciousness: Awake Patient Behavior: Guarded, Anxious and Impulsive Behavior Comments: Somewhat sad looking Mood Description: Appropriate and Constricted Affect Description: Constricted, Depressed and Apprehensive Patient Cognition Impaired: Yes Ability to Follow Directions: Good Speech Pattern: Perseverating Memory Description: Episodic Impaired and Working Impaired Hallucinations: None Delusions: Not Present Thought Process: Rumination Thought Content: positive for Preoccupation, negative for Suicidal Ideation or negative for Homicidal Ideation Depressive Symptoms: Increased Anxiety, Crying Spells and Loss of Int. in Activity Judgement: Fair Diagnostics Vital Signs (24Hr): Vital Signs - 24 hr 01/19/23 18:00 01/20/23 09:30 Temperature 97.2 F 97.3 F Pulse Rate 72 84 Respiratory Rate 17 16 Blood Pressure 142/69 H 128/77 Pulse Oximetry 97 97 Oxygen Delivery Method Room Air Room Air BMI result Body Mass Index 30.2 Labs 11/13/22 07:43 11/12/22 09:32 Imaging Radiology Impressions: ITS Impressions Chest X-Ray 10/20/22 15:45 IMPRESSION: 1. Low lung volumes with bibasilar linear disc atelectasis versus scarring. 2. No airspace consolidation or effusion. Head CT 11/08/22 12:29 IMPRESSION: No acute intracranial hemorrhage or territorial infarction. Stable chronic postoperative changes with gliosis and encephalomalacia in the right frontal and right temporal lobes. Ex vacuo dilatation of the ventricles and diffuse parenchymal volume loss. Right-sided craniotomy changes. Chest X-Ray 11/12/22 10:32 IMPRESSION: Hypoexpanded lungs with bibasilar platelike atelectasis. Brain MRI 11/12/22 13:15 IMPRESSION: 1. No demonstrated acute intracranial abnormalities. 2. Chronic encephalomalacia of the right temporal, right frontal, and left occipital lobes. Small regions of chronic encephalomalacia in the parasagittal aspects of the bilateral parietal lobes. Moderate underlying microangiopathy and generalized cerebral volume loss. Chest X-Ray 11/14/22 15:52 IMPRESSION: Low lung volumes, bibasilar subsegmental atelectasis and slight elevation of the right hemidiaphragm similar to previous exam. Modified Barium Swallow 11/21/22 15:11 IMPRESSION: Laryngeal penetration on several occasions but no laryngeal aspiration. Mild retention of solid food in the valleculae which cleared with subsequent oral administration of water or thin barium. Correlate with speech therapy results. Medications Medications Current Medications Acetaminophen (Acetaminophen 325 Mg Tablet) 650 mg PO Q6H PRN PRN Reason: Headache/Pain Mild Scale (1-3) Last Admin: 01/19/23 20:52 Dose: 650 mg Albuterol Sulfate (Albuterol Sulfate 90 Mcg 8 Gm Inhaler) 2 puff INHALE Q6H PRN PRN Reason: Wheezing Alprazolam (Alprazolam 0.5 Mg Tablet) 0.5 mg PO BEDTIME [facility] Last Admin: 01/19/23 20:51 Dose: 0.5 mg Alprazolam (Alprazolam 0.25 Mg Tablet) 0.25 mg PO Q4H PRN PRN Reason: Anxiety Last Admin: 01/19/23 12:32 Dose: 0.25 mg Amlodipine Besylate (Amlodipine Besylate 5 Mg Tablet) 5 mg PO DAILY [facility]; Protocol Last Admin: 01/20/23 09:30 Dose: 5 mg Bisacodyl (Bisacodyl 10 Mg Supp.Rect) 10 mg [place] DAILY PRN PRN Reason: Constipation Divalproex Sodium (Divalproex Sodium Sprinkles 125 Mg ) 375 mg PO BID [facility] Last Admin: 01/20/23 09:31 Dose: 375 mg Gabapentin (Gabapentin 100 Mg Capsule) 100 mg PO TID [facility] Last Admin: 01/20/23 09:31 Dose: 100 mg Guaifenesin/Dextromethorphan (Guaifenesin Dm 200/20/10 Ml 10 Ml Syrup) 10 ml PO Q4H PRN PRN Reason: Cough Last Admin: 11/20/22 05:31 Dose: 10 ml Hydroxyzine HCl (Hydroxyzine Hcl 50 Mg Tablet) 50 mg PO Q4H PRN PRN Reason: Anxiety Last Admin: 01/19/23 20:51 Dose: 50 mg Lamotrigine (Lamotrigine 100 Mg Tablet) 100 mg PO BID [facility] Last Admin: 01/20/23 09:30 Dose: 100 mg Latanoprost (Latanoprost 0.005 % Ophth No 2.5 Ml Drops) 1 drop EYE-BOTH BEDTIME [facility] Last Admin: 01/19/23 20:52 Dose: 1 drop Lidocaine (Lidocaine 5 % Ointment 35 Gm) 1 appl TOPICAL QID [facility] Last Admin: 01/20/23 12:02 Dose: 1 appl Multi-Ingred Cream/Lotion/Oil/Oint (Mineral Oil/Petrolatum,White 106 Gm Tube) 1 appl TOPICAL BID PRN; Protocol PRN Reason: dry skin Nortriptyline HCl (Nortriptyline Hcl 25 Mg Capsule) 50 mg PO BEDTIME [facility] Last Admin: 01/19/23 20:51 Dose: 50 mg Olanzapine (Olanzapine 2.5 Mg Tablet) 2.5 mg PO DAILY [facility] Last Admin: 01/20/23 09:30 Dose: 2.5 mg Olanzapine (Olanzapine 2.5 Mg Tablet) 2.5 mg PO DAILY@1500 [facility] Last Admin: 01/19/23 15:36 Dose: 2.5 mg Olanzapine (Olanzapine 5 Mg Tablet) 5 mg PO BEDTIME [facility] Last Admin: 01/19/23 20:51 Dose: 5 mg Ondansetron HCl (Ondansetron Odt 4 Mg Tab.Rapdis) 4 mg TRANSLINGU Q6H PRN PRN Reason: Nausea and Vomiting Last Admin: 01/11/23 08:34 Dose: 4 mg Polyethylene Glycol (Polyethylene Glycol 3350 17 Gm Powd.Pack) 17 gm PO BID [facility] Last Admin: 01/20/23 09:32 Dose: 17 gm Senna/Docusate Sodium (Sennosides/Docusate Sodium Tablet) 2 tab PO BID [facility] Last Admin: 01/20/23 09:39 Dose: 2 tab Sodium Biphosphate/Sodium Phosphate (Sodium Phosphate,[place]-Dibasic 133 Ml Enema) 133 ml [place] ONCE PRN PRN Reason: Constipation Tamsulosin HCl (Tamsulosin Hcl 0.4 Mg Capsule) 0.4 mg PO DAILY [facility] Last Admin: 01/20/23 09:31 Dose: 0.4 mg Trazodone HCl (Trazodone Hcl 100 Mg Tablet) 200 mg PO BEDTIME [facility] Last Admin: 01/19/23 20:51 Dose: 200 mg Venlafaxine HCl (Venlafaxine Hcl Er 75 Mg Cap.Er.24h) 75 mg PO DAILY [facility] Last Admin: 01/20/23 09:29 Dose: 75 mg Allergies Allergies Allergy/AdvReac Type Severity Reaction Status Date / Time fentanyl [FENTANYL] Allergy Intermediate unknown Verified 04/08/22 07:00 Assessment & Plan Assessment & Plan (1) Cognitive and neurobehavioral dysfunction following brain injury: Status: Acute Code(s): G31.89 - Other specified degenerative diseases of nervous system; F09 - Unspecified mental disorder due to known physiological condition; S06.9X9S - Unspecified intracranial injury with loss of consciousness of unspecified duration, sequela (2) Major depressive disorder, recurrent severe without psychotic features: Status: Acute Code(s): F33.2 - Major depressive disorder, recurrent severe without psychotic features (3) Swallowing dysfunction: Status: Acute Code(s): R13.10 - Dysphagia, unspecified Plan Patient seems minimally less labile with olanzapine during the day and alprazolam to decrease irritability reactivity monitor for over sedation continue discharge planning Encourage daily strength training lower Effexor to 75 mg in case it is overly stimulating the patient to increased reactivity Start Depakote 125 mg twice a day will start gradually for mood instability 01/05: Continue current plans and regimen 01/06/2023 Patient feels better on Depakote increase Depakote to 125 t.i.d. lower Lamictal 01/07/2023 Increase Depakote to 250 b.i.d. secondary to anxiety reviewed cognitive behavioral strategies 01/08/23 pt seems improved with depakote cont plan of care 01/09/23 Pt seen in f/u mood improved encourage inc perspective cbt skills 01/11: Continue tx plan. 01/12/23 Monitor medical safety ck o 2 isolation cont meds otherwise 2022 Continue Effexor Depakote Lamictal monitor patient for more acute COVID symptoms continue isolation 01/14/2023 Continue plan of care encourage coping strategies reading Increase Depakote 375 mg twice a day Depakote level 40 to encourage CBT strategies continue continue isolation 01/15/23 cont plan of care 01/16/2023 Patient needs much reassurance and support continue medication encourage perspective coping strategies 01/17/2023 Continue plan of care 01/18/2023 Continue to monitor response to need for isolation and recent COVID 01/19/23 Pt seen in f/u mood depressed agitated inc depakote inc zyprexa for mood stability 01/20/2023 Patient seen in follow-up less depressed less labile continue difficulty with isolation Reason for contiued inpatient stay Substantial Risk for: harm to self and rapid decompensation Time Spent With Patient Time: Total time managing care of this patient today ____ minutes.
[2023-01-20] MEDS: Acetaminophen 325 MG TABLET 650 MG PO ×2 (15:35→21:20)
[2023-01-20 18:00] VITALS: BP 106/51; PULSE 106; RESP 16; TEMP 36.1; O2SAT 94
[2023-01-20] MEDS: ALPRAZolam 0.25 MG TABLET PO (18:29)
[2023-01-20] MEDS: ALPRAZolam 0.5 MG TABLET PO (21:17)
[2023-01-20] MEDS: Nortriptyline HCl 25 MG CAPSULE 50 MG PO (21:19)
[2023-01-20] MEDS: OLANZapine 5 MG TABLET PO (21:21)
[2023-01-20] MEDS: Latanoprost 0.005 % Ophth Sol 2.5 ML DROPS 1 DROP EYE-BOTH (21:27)
[2023-01-21] MEDS: traZODone HCL 100 MG TABLET 200 MG PO ×2 (00:14→21:15)
[2023-01-21] MEDS: hydrOXYzine HCL 50 MG TABLET PO (01:27)
[2023-01-21] MEDS: Acetaminophen 325 MG TABLET 650 MG PO ×2 (04:08→21:16)
[2023-01-21] MEDS: ALPRAZolam 0.25 MG TABLET PO (04:09)
[2023-01-21 06:00] VITALS: BP 110/62; PULSE 60; RESP 16; TEMP 36.7
[2023-01-21] MEDS: Divalproex Sodium Sprinkles 125 MG CAP.DR.SPR 375 MG PO ×2 (09:21→21:15)
[2023-01-21] MEDS: Sennosides/Docusate Sodium TABLET 2 TAB PO ×2 (09:21→21:16)
[2023-01-21] MEDS: amLODIPine Besylate 5 MG TABLET PO (09:22)
[2023-01-21] MEDS: polyethylene glycoL 3350 17 GM POWD.PACK PO (09:22)
[2023-01-21] MEDS: OLANZapine 2.5 MG TABLET PO ×2 (09:22→15:01)
[2023-01-21] MEDS: Venlafaxine HCl ER 75 MG CAP.ER.24H PO (09:22)
[2023-01-21] MEDS: Gabapentin 100 MG CAPSULE PO ×3 (09:22→21:15)
[2023-01-21] MEDS: lamoTRIgine 100 MG TABLET PO ×2 (09:22→21:15)
[2023-01-21] MEDS: Tamsulosin HCL 0.4 MG CAPSULE PO (09:23)
--- NOTE | 2023-01-21 15:56 | MHC.SL.SWA ---
Addendum entered and electronically signed by Maddy Harris MA, CCC-THERAPIST PHYSICAL 01/21/23 17:09: D.S. Original Note: Speech Pathologist Impression: Oropharyngeal Phase Dysphagia Risk of Aspiration Due to: Neurological Condition Reduced Cognition Dysphasia Diet Status: Recommend continue on REGULAR diet with THIN liquids, Pills whole with liquids or puree as preferred by patient. THERAPIST PHYSICAL will check in X1 weekly with patient and/or nursing staff while patient is in [facility]Psych unit. Liquid Consistency and Strategies for Safe Swallow: Liquid Intake Recommendation: Thin Liquid Intake Strategies: No Straws Double Swallow Solid Food Consistency: Dietary Recommendations: Regular Additional Modifications to Solid Foods: Cue patient to double swallow (dry swallow), particularly on sticky or harder to chew consistencies. Alternate liquids and solids. Oral Medication Intake: Whole with Liquid Please contact the pharmacy regarding appropriate crushable or liquid drug formulations that are available whenever modified delivery is recommended. Compensatory Strategies and Precautions to be Taken for Safe Swallow: Sitting Upright (90 deg) Double Swallow No Straw Small Bites and Sips Alternate Liquids/Solids Rate of Ingestion Change Avoid Specific Foods Supervision While Eating and Drinking for Safe Swallow: Intermittent Supervision Foods to Avoid: Hard to chew solids (e.g. solid pieces of meat), dry consistencies that break into pieces (e.g. cookies, crackers, chips, nuts), mixed solid consistencies that require ample chewing (e.g. green salads), rice. Swallowing Recommended Treatments: Compens. Strategy Educat. Recommendation for Speech: Inpatient Speech Therapy Patient in isolation in room d/t [facility], in good spirits upon THERAPIST PHYSICAL visit, expressed gratitude for THERAPIST PHYSICAL. Pt reported that he was not very hungry but agreeable to PO trials. Pt observed to eat raisin bran cereal w/ milk. Pt able to open all food items and pour milk into bowl independently. Observed to spill milk a couple times from spoon and bowl. Pt demonstrated recommended safe eating strategies including slow rate of ingestion, small bites, alternating between liquids and solids, double swallow. Pt not observed to use laminated list of strategies. Pt presented w/ intermittent throat clearing following attempts at talking prior to swallowing entire bolus. Recommend continue on REGULAR diet with THIN liquids, Pills whole with liquids or puree as preferred by patient. THERAPIST PHYSICAL will check in X1 weekly with patient and/or nursing staff while patient is in [facility]Psych unit. See 11/21/22 MBSS report for full list of strategies and recommendations. Hanging Flags Decorator Clinican/Clinical Fellow: Yes: Bridget Martinez M.A., CF-THERAPIST PHYSICAL Supervisory Statement: I have reviewed and agree with the student/clinical fellow's documentation: Yes Speech Language Pathologist: Maddy Harris M.A., [facility]3]-THERAPIST PHYSICAL
[2023-01-21 18:00] VITALS: BP 151/73; PULSE 69; RESP 17; TEMP 36.7; O2SAT 98
[2023-01-21] MEDS: OLANZapine 5 MG TABLET PO (21:15)
[2023-01-21] MEDS: ALPRAZolam 0.5 MG TABLET PO (21:15)
[2023-01-21] MEDS: Nortriptyline HCl 25 MG CAPSULE 50 MG PO (21:15)
[2023-01-21] MEDS: Latanoprost 0.005 % Ophth Sol 2.5 ML DROPS 1 DROP EYE-BOTH (21:21)
--- NOTE | 2023-01-21 21:36 | P.PNPSI_ITS ---
Subjective Subjective Date of Service: 01/21/23 Reason For Visit: Depression hopelessness irritability Subjective Notes: Conditional Voluntary Healthcare Proxy: No Guardianship: No Interim History: Patient in his last day of isolation has had better coping mood more stable. Feels better with increase Depakote and olanzapine Medication Compliance: Yes Side effects from medications: No Review of Systems COVID isolation Mental Status Exam Mental Status Exam Narrative: Patient Appearance: Appropriate Patient Orientation: Person, Place, Time and Situation Level of Consciousness: Awake Patient Behavior: Appropriate Behavior Comments: Somewhat sad looking Mood Description: Appropriate and Constricted Affect Description: Constricted, Depressed and Apprehensive Patient Cognition Impaired: Yes Ability to Follow Directions: Good Speech Pattern: Clear Memory Description: Episodic Impaired and Working Impaired Hallucinations: None Delusions: Not Present Thought Process: Rumination Thought Content: positive for Intact, positive for Goal Oriented, negative for Suicidal Ideation or negative for Homicidal Ideation Depressive Symptoms: Increased Anxiety, Crying Spells and Loss of Int. in Activi ty Judgement: Fair Diagnostics Vital Signs (24Hr): Vital Signs - 24 hr 01/21/23 06:00 Temperature 98.0 F Pulse Rate 60 Respiratory Rate 16 Blood Pressure 110/62 BMI result Body Mass Index 30.2 Labs 11/13/22 07:43 11/12/22 09:32 Imaging Radiology Impressions: ITS Impressions Chest X-Ray 10/20/22 15:45 IMPRESSION: 1. Low lung volumes with bibasilar linear disc atelectasis versus scarring. 2. No airspace consolidation or effusion. Head CT 11/08/22 12:29 IMPRESSION: No acute intracranial hemorrhage or territorial infarction. Stable chronic postoperative changes with gliosis and encephalomalacia in the right frontal and right temporal lobes. Ex vacuo dilatation of the ventricles and diffuse parenchymal volume loss. Right-sided craniotomy changes. Chest X-Ray 11/12/22 10:32 IMPRESSION: Hypoexpanded lungs with bibasilar platelike atelectasis. Brain MRI 11/12/22 13:15 IMPRESSION: 1. No demonstrated acute intracranial abnormalities. 2. Chronic encephalomalacia of the right temporal, right frontal, and left occipital lobes. Small regions of chronic encephalomalacia in the parasagittal aspects of the bilateral parietal lobes. Moderate underlying microangiopathy and generalized cerebral volume loss. Chest X-Ray 11/14/22 15:52 IMPRESSION: Low lung volumes, bibasilar subsegmental atelectasis and slight elevation of the right hemidiaphragm similar to previous exam. Modified Barium Swallow 11/21/22 15:11 IMPRESSION: Laryngeal penetration on several occasions but no laryngeal aspiration. Mild retention of solid food in the valleculae which cleared with subsequent oral administration of water or thin barium. Correlate with speech therapy results. Medications Medications Current Medications Acetaminophen (Acetaminophen 325 Mg Tablet) 650 mg PO Q6H PRN PRN Reason: Headache/Pain Mild Scale (1-3) Last Admin: 01/21/23 21:16 Dose: 650 mg Albuterol Sulfate (Albuterol Sulfate 90 Mcg 8 Gm Inhaler) 2 puff INHALE Q6H PRN PRN Reason: Wheezing Alprazolam (Alprazolam 0.5 Mg Tablet) 0.5 mg PO BEDTIME [facility] Last Admin: 01/21/23 21:15 Dose: 0.5 mg Alprazolam (Alprazolam 0.25 Mg Tablet) 0.25 mg PO Q4H PRN PRN Reason: Anxiety Last Admin: 01/21/23 04:09 Dose: 0.25 mg Amlodipine Besylate (Amlodipine Besylate 5 Mg Tablet) 5 mg PO DAILY [facility]; Protoc ol Last Admin: 01/21/23 09:22 Dose: 5 mg Bisacodyl (Bisacodyl 10 Mg Supp.Rect) 10 mg [place] DAILY PRN PRN Reason: Constipation Divalproex Sodium (Divalproex Sodium Sprinkles 125 Mg ) 375 mg PO BID [facility] Last Admin: 01/21/23 21:15 Dose: 375 mg Gabapentin (Gabapentin 100 Mg Capsule) 100 mg PO TID [facility] Last Admin: 01/21/23 21:15 Dose: 100 mg Guaifenesin/Dextromethorphan (Guaifenesin Dm 200/20/10 Ml 10 Ml Syrup) 10 ml PO Q4H PRN PRN Reason: Cough Last Admin: 11/20/22 05:31 Dose: 10 ml Hydroxyzine HCl (Hydroxyzine Hcl 50 Mg Tablet) 50 mg PO Q4H PRN PRN Reason: Anxiety Last Admin: 01/21/23 01:27 Dose: 50 mg Lamotrigine (Lamotrigine 100 Mg Tablet) 100 mg PO BID [facility] Last Admin: 01/21/23 21:15 Dose: 100 mg Latanoprost (Latanoprost 0.005 % Ophth No 2.5 Ml Drops) 1 drop EYE-BOTH BEDTIM E [facility] Last Admin: 01/21/23 21:21 Dose: 1 drop Lidocaine (Lidocaine 5 % Ointment 35 Gm) 1 appl TOPICAL QID [facility] Last Admin: 01/21/23 21:23 Dose: Not Given Multi-Ingred Cream/Lotion/Oil/Oint (Mineral Oil/Petrolatum,White 106 Gm Tube) 1 appl TOPICAL BID PRN; Protocol PRN Reason: dry skin Nortriptyline HCl (Nortriptyline Hcl 25 Mg Capsule) 50 mg PO BEDTIME [facility] Last Admin: 01/21/23 21:15 Dose: 50 mg Olanzapine (Olanzapine 2.5 Mg Tablet) 2.5 mg PO DAILY [facility] Last Admin: 01/21/23 09:22 Dose: 2.5 mg Olanzapine (Olanzapine 2.5 Mg Tablet) 2.5 mg PO DAILY@1500 [facility] Last Admin: 01/21/23 15:01 Dose: 2.5 mg Olanzapine (Olanzapine 5 Mg Tablet) 5 mg PO BEDTIME [facility] Last Admin: 01/21/23 21:15 Dose: 5 mg Ondansetron HCl (Ondansetron Odt 4 Mg Tab.Rapdis) 4 mg TRANSLINGU Q6H PRN PRN Reason: Nausea and Vomiting Last Admin: 01/11/23 08:34 Dose: 4 mg Polyethylene Glycol (Polyethylene Glycol 3350 17 Gm Powd.Pack) 17 gm PO BID [facility] Last Admin: 01/21/23 21:23 Dose: Not Given Senna/Docusate Sodium (Sennosides/Docusate Sodium Tablet) 2 tab PO BID [facility] Last Admin: 01/21/23 21:16 Dose: 2 tab Sodium Biphosphate/Sodium Phosphate (Sodium Phosphate,[place]-Dibasic 133 Ml Enema) 133 ml [place] ONCE PRN PRN Reason: Constipation Tamsulosin HCl (Tamsulosin Hcl 0.4 Mg Capsule) 0.4 mg PO DAILY [facility] Last Admin: 01/21/23 09:23 Dose: 0.4 mg Trazodone HCl (Trazodone Hcl 100 Mg Tablet) 200 mg PO BEDTIME [facility] Last Admin: 01/21/23 21:15 Dose: 200 mg Venlafaxine HCl (Venlafaxine Hcl Er 75 Mg Cap.Er.24h) 75 mg PO DAILY [facility] Last Admin: 01/21/23 09:22 Dose: 75 mg Allergies Allergies Allergy/AdvReac Type Severity Reaction Status Date / Time fentanyl [FENTANYL] Allergy Intermediate unknown Verified 04/08/22 07:00 Assessment & Plan Assessment & Plan (1) Cognitive and neurobehavioral dysfunction following brain injury: Status: Acute Code(s): G31.89 - Other specified degenerative diseases of nervous system; F09 - Unspecified mental disorder due to known physiological condition; S06.9X9S - Unspecified intracranial injury with loss of consciousness of unspecified duration, sequela (2) Major depressive disorder, recurrent severe without psychotic features: Status: Acute Code(s): F33.2 - Major depressive disorder, recurrent severe without psychotic features (3) Swallowing dysfunction: Status: Acute Code(s): R13.10 - Dysphagia, unspecified Plan Patient seems minimally less labile with olanzapine during the day and alprazolam to decrease irritability reactivity monitor for over sedation continue discharge planning Encourage daily strength training lower Effexor to 75 mg in case it is overly stimulating the patient to increased reactivity Start Depakote 125 mg twice a day will start gradually for mood instability 01/05: Continue current plans and regimen 01/06/2023 Patient feels better on Depakote increase Depakote to 125 t.i.d. lower Lamictal 01/07/2023 Increase Depakote to 250 b.i.d. secondary to anxiety reviewed cognitive behavioral strategies 01/08/23 pt seems improved with depakote cont plan of care 01/09/23 Pt seen in f/u mood improved encourage inc perspective cbt skills 01/11: Continue tx plan. 01/12/23 Monitor medical safety ck o 2 isolation cont meds otherwise 2022 Continue Effexor Depakote Lamictal monitor patient for more acute COVID symptoms continue isolation 01/14/2023 Continue plan of care encourage coping strategies reading Increase Depakote 375 mg twice a day Depakote level 40 to encourage CBT strategies continue continue isolation 01/15/23 cont plan of care 01/16/2023 Patient needs much reassurance and support continue medication encourage perspective coping strategies 01/17/2023 Continue plan of care 01/18/2023 Continue to monitor response to need for isolation and recent COVID 3/6/23 Pt seen in f/u mood depressed agitated inc depakote inc zyprexa for mood st ability 01/20/2023 Patient seen in follow-up less depressed less labile continue difficulty with isolation 01/21/2023 Patient seen in follow-up gradually improving coping better using more relaxation and cognitive techniques including music Reason for contiued inpatient stay Substantial Risk for: harm to self and rapid decompensation Time Spent With Patient Time: Total time managing care of this patient today ____ minutes.
[2023-01-22] MEDS: ALPRAZolam 0.25 MG TABLET PO (05:57)
[2023-01-22] MEDS: Tamsulosin HCL 0.4 MG CAPSULE PO (09:09)
[2023-01-22] MEDS: Gabapentin 100 MG CAPSULE PO ×3 (09:10→21:17)
[2023-01-22] MEDS: Venlafaxine HCl ER 75 MG CAP.ER.24H PO (09:10)
[2023-01-22] MEDS: Divalproex Sodium Sprinkles 125 MG CAP.DR.SPR 375 MG PO ×2 (09:10→21:16)
[2023-01-22] MEDS: amLODIPine Besylate 5 MG TABLET PO (09:11)
[2023-01-22] MEDS: lamoTRIgine 100 MG TABLET PO ×2 (09:11→21:17)
[2023-01-22] MEDS: Sennosides/Docusate Sodium TABLET 2 TAB PO ×2 (09:11→21:16)
[2023-01-22] MEDS: OLANZapine 2.5 MG TABLET PO ×2 (09:12→15:39)
[2023-01-22 09:14] VITALS: BP 131/78; PULSE 104; RESP 18; O2SAT 97
[2023-01-22] MEDS: Acetaminophen 325 MG TABLET 650 MG PO ×2 (12:31→20:24)
[2023-01-22] MEDS: Latanoprost 0.005 % Ophth Sol 2.5 ML DROPS 1 DROP EYE-BOTH (21:15)
[2023-01-22] MEDS: Nortriptyline HCl 25 MG CAPSULE 50 MG PO (21:16)
[2023-01-22] MEDS: ALPRAZolam 0.5 MG TABLET PO (21:16)
[2023-01-22] MEDS: OLANZapine 5 MG TABLET PO (21:17)
[2023-01-22] MEDS: traZODone HCL 100 MG TABLET 200 MG PO (21:17)
[2023-01-22 21:48] VITALS: BP 162/82; PULSE 78; RESP 18; TEMP 36.5; O2SAT 98
--- NOTE | 2023-01-22 22:56 | P.PNPSI_ITS ---
Subjective Subjective Date of Service: 01/22/23 Reason For Visit: Depression hopelessness irritability Subjective Notes: Conditional Voluntary Interim History: pt c/o odd morrison mood more stable cont depakote Mental Status Exam Mental Status Exam Narrative: Patient Appearance: Appropriate Patient Orientation: Person, Place, Time and Situation Level of Consciousness: Awake Patient Behavior: Appropriate Behavior Comments: Somewhat sad looking Mood Description: Appropriate and Constricted Affect Description: Constricted, Depressed and Apprehensive Patient Cognition Impaired: Yes Ability to Follow Directions: Good Speech Pattern: Clear Memory Description: Episodic Impaired and Working Impaired Hallucinations: None Delusions: Not Present Thought Process: Rumination Thought Content: positive for Intact, positive for Goal Oriented, negative for Suicidal Ideation or negative for Homicidal Ideation Depressive Symptoms: Increased Anxiety, Crying Spells and Loss of Int. in Activity Judgement: Fair Diagnostics Vital Signs (24Hr): Vital Signs - 24 hr 01/22/23 09:14 01/22/23 21:48 Temperature 97.7 F Pulse Rate 104 H 78 Respiratory Rate 18 18 Blood Pressure 131/78 162/82 H Pulse Oximetry 97 98 Oxygen Delivery Method Room Air Room Air BMI result Body Mass Index 30.2 Labs 11/13/22 07:43 11/12/22 09:32 Imaging Radiology Impressions: ITS Impressions Chest X-Ray 10/20/22 15:45 IMPRESSION: 1. Low lung volumes with bibasilar linear disc atelectasis versus scarring. 2. No airspace consolidation or effusion. Head CT 11/08/22 12:29 IMPRESSION: No acute intracranial hemorrhage or territorial infarction. Stable chronic postoperative changes with gliosis and encephalomalacia in the right frontal and right temporal lobes. Ex vacuo dilatation of the ventricles and diffuse parenchymal volume loss. Right-sided craniotomy changes. Chest X-Ray 11/12/22 10:32 IMPRESSION: Hypoexpanded lungs with bibasilar platelike atelectasis. Brain MRI 11/12/22 13:15 IMPRESSION: 1. No demonstrated acute intracranial abnormalities. 2. Chronic encephalomalacia of the right temporal, right frontal, and left occipital lobes. Small regions of chronic encephalomalacia in the parasagittal aspects of the bilateral parietal lobes. Moderate underlying microangiopathy and generalized cerebral volume loss. Chest X-Ray 11/14/22 15:52 IMPRESSION: Low lung volumes, bibasilar subsegmental atelectasis and slight elevation of the right hemidiaphragm similar to previous exam. Modified Barium Swallow 11/21/22 15:11 IMPRESSION: Laryngeal penetration on several occasions but no laryngeal aspiration. Mild retention of solid food in the valleculae which cleared with subsequent oral administration of water or thin barium. Correlate with speech therapy results. Medications Medications Current Medications Acetaminophen (Acetaminophen 325 Mg Tablet) 650 mg PO Q6H PRN PRN Reason: Headache/Pain Mild Scale (1-3) Last Admin: 01/22/23 20:24 Dose: 650 mg Albuterol Sulfate (Albuterol Sulfate 90 Mcg 8 Gm Inhaler) 2 puff INHALE Q6H PRN PRN Reason: Wheezing Alprazolam (Alprazolam 0.5 Mg Tablet) 0.5 mg PO BEDTIME [facility] Last Admin: 01/22/23 21:16 Dose: 0.5 mg Alprazolam (Alprazolam 0.25 Mg Tablet) 0.25 mg PO Q4H PRN PRN Reason: Anxiety Last Admin: 01/22/23 05:57 Dose: 0.25 mg Amlodipine Besylate (Amlodipine Besylate 5 Mg Tablet) 5 mg PO DAILY [facility]; Protocol Last Admin: 01/22/23 09:11 Dose: 5 mg Bisacodyl (Bisacodyl 10 Mg Supp.Rect) 10 mg [place] DAILY PRN PRN Reason: Constipation Divalproex Sodium (Divalproex Sodium Sprinkles 125 Mg ) 375 mg PO BID [facility] Last Admin: 01/22/23 21:16 Dose: 375 mg Gabapentin (Gabapentin 100 Mg Capsule) 100 mg PO TID [facility] Last Admin: 01/22/23 21:17 Dose: 100 mg Guaifenesin/Dextromethorphan (Guaifenesin Dm 200/20/10 Ml 10 Ml Syrup) 10 ml PO Q4H PRN PRN Reason: Cough Last Admin: 11/20/22 05:31 Dose: 10 ml Hydroxyzine HCl (Hydroxyzine Hcl 50 Mg Tablet) 50 mg PO Q4H PRN PRN Reason: Anxiety Last Admin: 01/21/23 01:27 Dose: 50 mg Lamotrigine (Lamotrigine 100 Mg Tablet) 100 mg PO BID [facility] Last Admin: 01/22/23 21:17 Dose: 100 mg Latanoprost (Latanoprost 0.005 % Ophth No 2.5 Ml Drops) 1 drop EYE-BOTH BEDTIME [facility] Last Admin: 01/22/23 21:15 Dose: 1 drop Lidocaine (Lidocaine 5 % Ointment 35 Gm) 1 appl TOPICAL QID [facility] Last Admin: 01/22/23 21:18 Dose: Not Given Multi-Ingred Cream/Lotion/Oil/Oint (Mineral Oil/Petrolatum,White 106 Gm Tube) 1 appl TOPICAL BID PRN; Protocol PRN Reason: dry skin Nortriptyline HCl (Nortriptyline Hcl 25 Mg Capsule) 50 mg PO BEDTIME [facility] Last Admin: 01/22/23 21:16 Dose: 50 mg Olanzapine (Olanzapine 2.5 Mg Tablet) 2.5 mg PO DAILY [facility] Last Admin: 01/22/23 09:12 Dose: 2.5 mg Olanzapine (Olanzapine 2.5 Mg Tablet) 2.5 mg PO DAILY@1500 [facility] Last Admin: 01/22/23 15:39 Dose: 2.5 mg Olanzapine (Olanzapine 5 Mg Tablet) 5 mg PO BEDTIME [facility] Last Admin: 01/22/23 21:17 Dose: 5 mg Ondansetron HCl (Ondansetron Odt 4 Mg Tab.Rapdis) 4 mg TRANSLINGU Q6H PRN PRN Reason: Nausea and Vomiting Last Admin: 01/11/23 08:34 Dose: 4 mg Polyethylene Glycol (Polyethylene Glycol 3350 17 Gm Powd.Pack) 17 gm PO BID [facility] Last Admin: 01/22/23 21:18 Dose: Not Given Senna/Docusate Sodium (Sennosides/Docusate Sodium Tablet) 2 tab PO BID [facility] Last Admin: 01/22/23 21:16 Dose: 2 tab Sodium Biphosphate/Sodium Phosphate (Sodium Phosphate,[place]-Dibasic 133 Ml Enema) 133 ml [place] ONCE PRN PRN Reason: Constipation Tamsulosin HCl (Tamsulosin Hcl 0.4 Mg Capsule) 0.4 mg PO DAILY [facility] Last Admin: 01/22/23 09:09 Dose: 0.4 mg Trazodone HCl (Trazodone Hcl 100 Mg Tablet) 200 mg PO BEDTIME [facility] Last Admin: 01/22/23 21:17 Dose: 200 mg Venlafaxine HCl (Venlafaxine Hcl Er 75 Mg Cap.Er.24h) 75 mg PO DAILY [facility] Last Admin: 01/22/23 09:10 Dose: 75 mg Allergies Allergies Allergy/AdvReac Type Severity Reaction Status Date / Time fentanyl [FENTANYL] Allergy Intermediate unknown Verified 04/08/22 07:00 Assessment & Plan Assessment & Plan (1) Cognitive and neurobehavioral dysfunction following brain injury: Status: Acute Code(s): G31.89 - Other specified degenerative diseases of nervous system; F09 - Unspecified mental disorder due to known physiological condition; S06.9X9S - Unspecified intracranial injury with loss of consciousness of unspecified duration, sequela (2) Major depressive disorder, recurrent severe without psychotic features: Status: Acute Code(s): F33.2 - Major depressive disorder, recurrent severe without psychotic features (3) Swallowing dysfunction: Status: Acute Code(s): R13.10 - Dysphagia, unspecified Plan Patient seems minimally less labile with olanzapine during the day and alprazolam to decrease irritability reactivity monitor for over sedation continue discharge planning Encourage daily strength training lower Effexor to 75 mg in case it is overly stimulating the patient to increased reactivity Start Depakote 125 mg twice a day will start gradually for mood instability 01/05: Continue current plans and regimen 01/06/2023 Patient feels better on Depakote increase Depakote to 125 t.i.d. lower Lamictal 01/07/2023 Increase Depakote to 250 b.i.d. secondary to anxiety reviewed cognitive behavioral strategies 01/08/23 pt seems improved with depakote cont plan of care 01/09/23 Pt seen in f/u mood improved encourage inc perspective cbt skills 01/11: Continue tx plan. 01/12/23 Monitor medical safety ck o 2 isolation cont meds otherwise 2022 Continue Effexor Depakote Lamictal monitor patient for more acute COVID symptoms continue isolation 01/14/2023 Continue plan of care encourage coping strategies reading Increase Depakote 375 mg twice a day Depakote level 40 to encourage CBT strategies continue continue isolation 01/15/23 cont plan of care 01/16/2023 Patient needs much reassurance and support continue medication encourage perspective coping strategies 01/17/2023 Continue plan of care 01/18/2023 Continue to monitor response to need for isolation and recent COVID 01/19/23 Pt seen in f/u mood depressed agitated inc depakote inc zyprexa for mood stability 01/20/2023 Patient seen in follow-up less depressed less labile continue difficulty with isolation 01/21/2023 Patient seen in follow-up gradually improving coping better using more relaxation and cognitive techniques including music 01/22/23 cont plan of care off isolation d/c planning c/o pain r nasal orbital ridge Reason for contiued inpatient stay Substantial Risk for: harm to self, inability to function and rapid decompensation Time Spent With Patient Time: Total time managing care of this patient today ____ minutes.
[2023-01-23] MEDS: Divalproex Sodium Sprinkles 125 MG CAP.DR.SPR 375 MG PO ×2 (08:53→21:19)
[2023-01-23] MEDS: Tamsulosin HCL 0.4 MG CAPSULE PO (08:54)
[2023-01-23] MEDS: Sennosides/Docusate Sodium TABLET 2 TAB PO ×2 (08:54→21:20)
[2023-01-23] MEDS: Gabapentin 100 MG CAPSULE PO ×3 (08:54→21:20)
[2023-01-23] MEDS: lamoTRIgine 100 MG TABLET PO ×2 (08:54→21:19)
[2023-01-23] MEDS: Venlafaxine HCl ER 75 MG CAP.ER.24H PO (08:54)
[2023-01-23] MEDS: OLANZapine 2.5 MG TABLET PO ×2 (08:55→14:33)
[2023-01-23] MEDS: amLODIPine Besylate 5 MG TABLET PO (08:57)
[2023-01-23 08:59] VITALS: BP 136/77; PULSE 79; RESP 18; TEMP 36.1; O2SAT 94
[2023-01-23] MEDS: Acetaminophen 325 MG TABLET 650 MG PO ×2 (09:53→17:40)
--- NOTE | 2023-01-23 14:26 | HO.PSYCHPN ---
Subjective Subjective Date of Service: 01/23/23 Reason For Visit: Depression hopelessness irritability Subjective Notes: Conditional Voluntary Interim History: Patient complains of right orbital pain seen by Dr. Gifford Medication Compliance: Yes Mental Status Exam Mental Status Exam Narrative: Patient Appearance: Appropriate Patient Orientation: Person, Place, Time and Situation Level of Consciousness: Awake Patient Behavior: Appropriate Behavior Comments: Somewhat sad looking Mood Description: Appropriate and Constricted Affect Description: Constricted, Depressed and Apprehensive Patient Cognition Impaired: Yes Ability to Follow Directions: Good Speech Pattern: Clear Memory Description: Episodic Impaired and Working Impaired Hallucinations: None Delusions: Not Present Thought Process: Rumination Thought Content: positive for Intact, positive for Goal Oriented, negative for Suicidal Ideation or negative for Homicidal Ideation Depressive Symptoms: Increased Anxiety, Crying Spells and Loss of Int. in Activity Judgement: Fair Diagnostics Vital Signs (24Hr): Vital Signs - 24 hr 01/22/23 21:48 01/23/23 08:59 Temperature 97.7 F 97.0 F Pulse Rate 78 79 Respiratory Rate 18 18 Blood Pressure 162/82 H 136/77 Pulse Oximetry 98 94 Oxygen Delivery Method Room Air Room Air BMI result Body Mass Index 30.2 Labs 11/13/22 07:43 11/12/22 09:32 Imaging Radiology Impressions: ITS Impressions Chest X-Ray 10/20/22 15:45 IMPRESSION: 1. Low lung volumes with bibasilar linear disc atelectasis versus scarring. 2. No airspace consolidation or effusion. Head CT 11/08/22 12:29 IMPRESSION: No acute intracranial hemorrhage or territorial infarction. Stable chronic postoperative changes with gliosis and encephalomalacia in the right frontal and right temporal lobes. Ex vacuo dilatation of the ventricles and diffuse parenchymal volume loss. Right-sided craniotomy changes. Chest X-Ray 11/12/22 10:32 IMPRESSION: Hypoexpanded lungs with bibasilar platelike atelectasis. Brain MRI 11/12/22 13:15 IMPRESSION: 1. No demonstrated acute intracranial abnormalities. 2. Chronic encephalomalacia of the right temporal, right frontal, and left occipital lobes. Small regions of chronic encephalomalacia in the parasagittal aspects of the bilateral parietal lobes. Moderate underlying microangiopathy and generalized cerebral volume loss. Chest X-Ray 11/14/22 15:52 IMPRESSION: Low lung volumes, bibasilar subsegmental atelectasis and slight elevation of the right hemidiaphragm similar to previous exam. Modified Barium Swallow 11/21/22 15:11 IMPRESSION: Laryngeal penetration on several occasions but no laryngeal aspiration. Mild retention of solid food in the valleculae which cleared with subsequent oral administration of water or thin barium. Correlate with speech therapy results. Medications Medications Current Medications Acetaminophen (Acetaminophen 325 Mg Tablet) 650 mg PO Q6H PRN PRN Reason: Headache/Pain Mild Scale (1-3) Last Admin: 01/23/23 09:53 Dose: 650 mg Albuterol Sulfate (Albuterol Sulfate 90 Mcg 8 Gm Inhaler) 2 puff INHALE Q6H PRN PRN Reason: Wheezing Alprazolam (Alprazolam 0.5 Mg Tablet) 0.5 mg PO BEDTIME [facility] Last Admin: 01/22/23 21:16 Dose: 0.5 mg Alprazolam (Alprazolam 0.25 Mg Tablet) 0.25 mg PO Q4H PRN PRN Reason: Anxiety Last Admin: 01/22/23 05:57 Dose: 0.25 mg Amlodipine Besylate (Amlodipine Besylate 5 Mg Tablet) 5 mg PO DAILY [facility]; Protocol Last Admin: 01/23/23 08:57 Dose: 5 mg Bisacodyl (Bisacodyl 10 Mg Supp.Rect) 10 mg [place] DAILY PRN PRN Reason: Constipation Divalproex Sodium (Divalproex Sodium Sprinkles 125 Mg ) 375 mg PO BID [facility] Last Admin: 01/23/23 08:53 Dose: 375 mg Gabapentin (Gabapentin 100 Mg Capsule) 100 mg PO TID [facility] Last Admin: 01/23/23 08:54 Dose: 100 mg Guaifenesin/Dextromethorphan (Guaifenesin Dm 200/20/10 Ml 10 Ml Syrup) 10 ml PO Q4H PRN PRN Reason: Cough Last Admin: 11/20/22 05:31 Dose: 10 ml Hydroxyzine HCl (Hydroxyzine Hcl 50 Mg Tablet) 50 mg PO Q4H PRN PRN Reason: Anxiety Last Admin: 01/21/23 01:27 Dose: 50 mg Lamotrigine (Lamotrigine 100 Mg Tablet) 100 mg PO BID [facility] Last Admin: 01/23/23 08:54 Dose: 100 mg Latanoprost (Latanoprost 0.005 % Ophth No 2.5 Ml Drops) 1 drop EYE-BOTH BEDTIME [facility] Last Admin: 01/22/23 21:15 Dose: 1 drop Lidocaine (Lidocaine 5 % Ointment 35 Gm) 1 appl TOPICAL QID [facility] Last Admin: 01/23/23 08:55 Dose: Not Given Multi-Ingred Cream/Lotion/Oil/Oint (Mineral Oil/Petrolatum,White 106 Gm Tube) 1 appl TOPICAL BID PRN; Protocol PRN Reason: dry skin Nortriptyline HCl (Nortriptyline Hcl 25 Mg Capsule) 50 mg PO BEDTIME [facility] Last Admin: 01/22/23 21:16 Dose: 50 mg Olanzapine (Olanzapine 2.5 Mg Tablet) 2.5 mg PO DAILY [facility] Last Admin: 01/23/23 08:55 Dose: 2.5 mg Olanzapine (Olanzapine 2.5 Mg Tablet) 2.5 mg PO DAILY@1500 [facility] Last Admin: 01/22/23 15:39 Dose: 2.5 mg Olanzapine (Olanzapine 5 Mg Tablet) 5 mg PO BEDTIME [facility] Last Admin: 01/22/23 21:17 Dose: 5 mg Ondansetron HCl (Ondansetron Odt 4 Mg Tab.Rapdis) 4 mg TRANSLINGU Q6H PRN PRN Reason: Nausea and Vomiting Last Admin: 01/11/23 08:34 Dose: 4 mg Polyethylene Glycol (Polyethylene Glycol 3350 17 Gm Powd.Pack) 17 gm PO BID [facility] Last Admin: 01/23/23 08:55 Dose: Not Given Senna/Docusate Sodium (Sennosides/Docusate Sodium Tablet) 2 tab PO BID [facility] Last Admin: 01/23/23 08:54 Dose: 2 tab Sodium Biphosphate/Sodium Phosphate (Sodium Phosphate,[place]-Dibasic 133 Ml Enema) 133 ml [place] ONCE PRN PRN Reason: Constipation Tamsulosin HCl (Tamsulosin Hcl 0.4 Mg Capsule) 0.4 mg PO DAILY [facility] Last Admin: 01/23/23 08:54 Dose: 0.4 mg Trazodone HCl (Trazodone Hcl 100 Mg Tablet) 200 mg PO BEDTIME [facility] Last Admin: 01/22/23 21:17 Dose: 200 mg Venlafaxine HCl (Venlafaxine Hcl Er 75 Mg Cap.Er.24h) 75 mg PO DAILY [facility] Last Admin: 01/23/23 08:54 Dose: 75 mg Allergies Allergies Allergy/AdvReac Type Severity Reaction Status Date / Time fentanyl [FENTANYL] Allergy Intermediate unknown Verified 04/08/22 07:00 Assessment & Plan Assessment & Plan (1) Cognitive and neurobehavioral dysfunction following brain injury: Status: Acute Code(s): G31.89 - Other specified degenerative diseases of nervous system; F09 - Unspecified mental disorder due to known physiological condition; S06.9X9S - Unspecified intracranial injury with loss of consciousness of unspecified duration, sequela (2) Major depressive disorder, recurrent severe without psychotic features: Status: Acute Code(s): F33.2 - Major depressive disorder, recurrent severe without psychotic features (3) Swallowing dysfunction: Status: Acute Code(s): R13.10 - Dysphagia, unspecified Plan Patient seems minimally less labile with olanzapine during the day and alprazolam to decrease irritability reactivity monitor for over sedation continue discharge planning Encourage daily strength training lower Effexor to 75 mg in case it is overly stimulating the patient to increased reactivity Start Depakote 125 mg twice a day will start gradually for mood instability 01/05: Continue current plans and regimen 01/06/2023 Patient feels better on Depakote increase Depakote to 125 t.i.d. lower Lamictal 01/07/2023 Increase Depakote to 250 b.i.d. secondary to anxiety reviewed cognitive behavioral strategies 01/08/23 pt seems improved with depakote cont plan of care 01/09/23 Pt seen in f/u mood improved encourage inc perspective cbt skills 01/11: Continue tx plan. 01/12/23 Monitor medical safety ck o 2 isolation cont meds otherwise 2022 Continue Effexor Depakote Lamictal monitor patient for more acute COVID symptoms continue isolation 01/14/2023 Continue plan of care encourage coping strategies reading Increase Depakote 375 mg twice a day Depakote level 40 to encourage CBT strategies continue continue isolation 01/15/23 cont plan of care 01/16/2023 Patient needs much reassurance and support continue medication encourage perspective coping strategies 01/17/2023 Continue plan of care 01/18/2023 Continue to monitor response to need for isolation and recent COVID 01/19/23 Pt seen in f/u mood depressed agitated inc depakote inc zyprexa for mood stability 01/20/2023 Patient seen in follow-up less depressed less labile continue difficulty with isolation 01/21/2023 Patient seen in follow-up gradually improving coping better using more relaxation and cognitive techniques including music 01/22/23 cont plan of care off isolation d/c planning c/o pain r nasal orbital ridge 01/23/2023 CT orbital scan consult Dr. Casarez continue medications otherwise Reason for contiued inpatient stay Substantial Risk for: inability to function and rapid decompensation Time Spent With Patient Time: Total time managing care of this patient today ____ minutes.
[2023-01-23] MEDS: ALPRAZolam 0.25 MG TABLET PO (14:35)
[2023-01-23] MEDS: Lidocaine 5 % Ointment 35 GM 1 APPL TOPICAL (17:42)
--- NOTE | 2023-01-23 18:03 | HO.PM.IMPN ---
Subjective Subjective Date of Service: 01/23/23 Interval History: Asked to see patient for pain over right orbit per patient. Denies trauma Review of Systems Denies chest pain Denies shortness of breath Denies nausea vomiting diarrhea Denies fever chills Physical Exam Vital Signs: Vital Signs: Last Vital Signs Temp 97.0 F 01/23/23 08:59 Pulse 79 01/23/23 08:59 Resp 18 01/23/23 08:59 BP 136/77 01/23/23 08:59 Pulse Ox 94 01/23/23 08:59 O2 Del Method 01/23/23 08:59 BMI result Body Mass Index 30.2 Const: Other: Awake alert no acute distress HEENT: Other: Describes localized pain with palpation lateral aspect right orbit; pain with palpation superior aspect left orbit Resp: Other: clear to auscultation bilaterally no rales rhonchi wheezes Cardio: Other: No S4; positive S1-S2; no S3 murmurs rubs or gallops Neuro: Other: Cranial nerves 2-12 grossly intact as tested. Extraocular movement without signs of entrapment. Motor is 5/5 all extremities sensation intact Extrem: Other: No edema bilaterally Objective Data Active Medications Acetaminophen (Acetaminophen 325 Mg Tablet) 650 mg PO Q6H PRN PRN Reason: Headache/Pain Mild Scale (1-3) Last Admin: 01/23/23 17:40 Dose: 650 mg Documented By: HELLEN Albuterol Sulfate (Albuterol Sulfate 90 Mcg 8 Gm Inhaler) 2 puff INHALE Q6H PRN PRN Reason: Wheezing Alprazolam (Alprazolam 0.5 Mg Tablet) 0.5 mg PO BEDTIME [facility] Last Admin: 01/22/23 21:16 Dose: 0.5 mg Documented By: HUNG Alprazolam (Alprazolam 0.25 Mg Tablet) 0.25 mg PO Q4H PRN PRN Reason: Anxiety Last Admin: 01/23/23 14:35 Dose: 0.25 mg Documented By: HUNG Amlodipine Besylate (Amlodipine Besylate 5 Mg Tablet) 5 mg PO DAILY [facility]; Protocol Last Admin: 01/23/23 08:57 Dose: 5 mg Documented By: HUNG Bisacodyl (Bisacodyl 10 Mg Supp.Rect) 10 mg [place] DAILY PRN PRN Reason: Constipation Divalproex Sodium (Divalproex Sodium Sprinkles 125 Mg ) 375 mg PO BID [facility] Last Admin: 01/23/23 08:53 Dose: 375 mg Documented By: HUNG Gabapentin (Gabapentin 100 Mg Capsule) 100 mg PO TID [facility] Last Admin: 01/23/23 14:33 Dose: 100 mg Documented By: HUNG Guaifenesin/Dextromethorphan (Guaifenesin Dm 200/20/10 Ml 10 Ml Syrup) 10 ml PO Q4H PRN PRN Reason: Cough Last Admin: 11/20/22 05:31 Dose: 10 ml Documented By: HERO Hydroxyzine HCl (Hydroxyzine Hcl 50 Mg Tablet) 50 mg PO Q4H PRN PRN Reason: Anxiety Last Admin: 01/21/23 01:27 Dose: 50 mg Documented By: YEYO Lamotrigine (Lamotrigine 100 Mg Tablet) 100 mg PO BID [facility] Last Admin: 01/23/23 08:54 Dose: 100 mg Documented By: HUNG Latanoprost (Latanoprost 0.005 % Ophth No 2.5 Ml Drops) 1 drop EYE-BOTH BEDTIME [facility] Last Admin: 01/22/23 21:15 Dose: 1 drop Documented By: HUNG Lidocaine (Lidocaine 5 % Ointment 35 Gm) 1 appl TOPICAL QID [facility] Last Admin: 01/23/23 17:42 Dose: 1 appl Documented By: HELLEN Multi-Ingred Cream/Lotion/Oil/Oint (Mineral Oil/Petrolatum,White 106 Gm Tube) 1 appl TOPICAL BID PRN; Protocol PRN Reason: dry skin Nortriptyline HCl (Nortriptyline Hcl 25 Mg Capsule) 50 mg PO BEDTIME [facility] Last Admin: 01/22/23 21:16 Dose: 50 mg Documented By: HUNG Olanzapine (Olanzapine 2.5 Mg Tablet) 2.5 mg PO DAILY [facility] Last Admin: 01/23/23 08:55 Dose: 2.5 mg Documented By: HUNG Olanzapine (Olanzapine 2.5 Mg Tablet) 2.5 mg PO DAILY@1500 [facility] Last Admin: 01/23/23 14:33 Dose: 2.5 mg Documented By: HUNG Olanzapine (Olanzapine 5 Mg Tablet) 5 mg PO BEDTIME [facility] Last Admin: 01/22/23 21:17 Dose: 5 mg Documented By: HUNG Ondansetron HCl (Ondansetron Odt 4 Mg Tab.Rapdis) 4 mg TRANSLINGU Q6H PRN PRN Reason: Nausea and Vomiting Last Admin: 01/11/23 08:34 Dose: 4 mg Documented By: CHERRIE Polyethylene Glycol (Polyethylene Glycol 3350 17 Gm Powd.Pack) 17 gm PO BID [facility] Last Admin: 01/23/23 08:55 Dose: Not Given Documented By: HUNG Non-Admin Reason: Patient Refused Senna/Docusate Sodium (Sennosides/Docusate Sodium Tablet) 2 tab PO BID [facility] Last Admin: 01/23/23 08:54 Dose: 2 tab Documented By: HUNG Sodium Biphosphate/Sodium Phosphate (Sodium Phosphate,[place]-Dibasic 133 Ml Enema) 133 ml [place] ONCE PRN PRN Reason: Constipation Tamsulosin HCl (Tamsulosin Hcl 0.4 Mg Capsule) 0.4 mg PO DAILY [facility] Last Admin: 01/23/23 08:54 Dose: 0.4 mg Documented By: HUNG Trazodone HCl (Trazodone Hcl 100 Mg Tablet) 200 mg PO BEDTIME [facility] Last Admin: 01/22/23 21:17 Dose: 200 mg Documented By: HUNG Venlafaxine HCl (Venlafaxine Hcl Er 75 Mg Cap.Er.24h) 75 mg PO DAILY [facility] Last Admin: 01/23/23 08:54 Dose: 75 mg Documented By: HUNG Labs 11/13/22 07:43 11/12/22 09:32 Assessment and Plan (1) Pain of both orbits: Status: Acute Plan 67-year-old male complaining of bilateral orbital pain in the absence of trauma. CT done; failed to demonstrate any acute pathologies. At this point time would treat conservatively utilizing Tylenol for pain as needed. Thank you for the consult. Call for further issues Time Spent With Patient Time: Total time managing care of this patient today ____ minutes. Quality Stroke Does the patient have a stroke diagnosis?: No VTE Prior VTE?: No VTE Risk Level:: Medical - low VTE Device Contraindication: Treatment Not Indicated VTE Drug Contraindication: Treatment Not Indicated
[2023-01-23 19:35] VITALS: BP 154/80; PULSE 73; RESP 16; TEMP 36.4; O2SAT 98
[2023-01-23] MEDS: traZODone HCL 100 MG TABLET 200 MG PO (21:19)
[2023-01-23] MEDS: Nortriptyline HCl 25 MG CAPSULE 50 MG PO (21:19)
[2023-01-23] MEDS: OLANZapine 5 MG TABLET PO (21:20)
[2023-01-23] MEDS: ALPRAZolam 0.5 MG TABLET PO (21:20)
[2023-01-23] MEDS: Latanoprost 0.005 % Ophth Sol 2.5 ML DROPS 1 DROP EYE-BOTH (21:20)
[2023-01-24] MEDS: Acetaminophen 325 MG TABLET 650 MG PO ×2 (05:35→12:40)
[2023-01-24] MEDS: ALPRAZolam 0.25 MG TABLET PO (05:36)
[2023-01-24] MEDS: Gabapentin 100 MG CAPSULE PO ×3 (09:22→22:04)
[2023-01-24] MEDS: Divalproex Sodium Sprinkles 125 MG CAP.DR.SPR 375 MG PO ×2 (09:22→21:56)
[2023-01-24] MEDS: Tamsulosin HCL 0.4 MG CAPSULE PO (09:22)
[2023-01-24] MEDS: amLODIPine Besylate 5 MG TABLET PO (09:23)
[2023-01-24] MEDS: Venlafaxine HCl ER 75 MG CAP.ER.24H PO (09:23)
[2023-01-24] MEDS: lamoTRIgine 100 MG TABLET PO ×2 (09:23→22:00)
[2023-01-24] MEDS: OLANZapine 2.5 MG TABLET PO ×2 (09:23→15:52)
[2023-01-24] MEDS: Lidocaine 5 % Ointment 35 GM 1 APPL TOPICAL (09:24)
[2023-01-24] MEDS: Sennosides/Docusate Sodium TABLET 2 TAB PO ×2 (09:24→22:01)
[2023-01-24 09:25] VITALS: BP 156/82; PULSE 78; RESP 18; TEMP 36.5; O2SAT 98
--- NOTE | 2023-01-24 15:36 | HO.PSYCHPN ---
Subjective Subjective Date of Service: 01/24/23 Reason For Visit: Depression hopelessness irritability Interim History: met with patient; discussed with nursing; reviewed Dr. Haskins's nots; reviewed dr. Gifford note pt reports he is miserable with right sided perioribatil pain worse when he leans forward, which correlates with oribital CT indicating possible acute sinusitis. Pt agrees to increased tylenol dose and ibuprofen. 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 on possible abx Mental Status Exam Mental Status Exam Narrative: Patient Appearance: Appropriate Patient Orientation: Person, Place, Time and Situation Level of Consciousness: Awake Patient Behavior: Appropriate Behavior Comments: Somewhat sad looking Mood Description: Appropriate and Constricted Affect Description: Constricted, Depressed and Apprehensive Patient Cognition Impaired: Yes Ability to Follow Directions: Good Speech Pattern: Clear Memory Description: Episodic Impaired and Working Impaired Hallucinations: None Delusions: Not Present Thought Process: Rumination Thought Content: positive for Intact, positive for Goal Oriented, negative for Thought Blocking, negative for Suicidal Ideation or negative for Homicidal Ideation Depressive Symptoms: Increased Anxiety, Loss of Int. in Activity and Difficulty Concentrating Judgement: Fair Diagnostics Vital Signs (24Hr): Vital Signs - 24 hr 01/23/23 19:35 01/24/23 09:25 Temperature 97.6 F 97.7 F Pulse Rate 73 78 Respiratory Rate 16 18 Blood Pressure 154/80 H 156/82 H Pulse Oximetry 98 98 Oxygen Delivery Method Room Air Room Air BMI result Body Mass Index 30.2 Labs 11/13/22 07:43 11/12/22 09:32 Imaging Radiology Impressions: ITS Impressions Chest X-Ray 10/20/22 15:45 IMPRESSION: 1. Low lung volumes with bibasilar linear disc atelectasis versus scarring. 2. No airspace consolidation or effusion. Head CT 11/08/22 12:29 IMPRESSION: No acute intracranial hemorrhage or territorial infarction. Stable chronic postoperative changes with gliosis and encephalomalacia in the right frontal and right temporal lobes. Ex vacuo dilatation of the ventricles and diffuse parenchymal volume loss. Right-sided craniotomy changes. Chest X-Ray 11/12/22 10:32 IMPRESSION: Hypoexpanded lungs with bibasilar platelike atelectasis. Brain MRI 11/12/22 13:15 IMPRESSION: 1. No demonstrated acute intracranial abnormalities. 2. Chronic encephalomalacia of the right temporal, right frontal, and left occipital lobes. Small regions of chronic encephalomalacia in the parasagittal aspects of the bilateral parietal lobes. Moderate underlying microangiopathy and generalized cerebral volume loss. Chest X-Ray 11/14/22 15:52 IMPRESSION: Low lung volumes, bibasilar subsegmental atelectasis and slight elevation of the right hemidiaphragm similar to previous exam. Modified Barium Swallow 11/21/22 15:11 IMPRESSION: Laryngeal penetration on several occasions but no laryngeal aspiration. Mild retention of solid food in the valleculae which cleared with subsequent oral administration of water or thin barium. Correlate with speech therapy results. Orbit CT 01/23/23 14:05 IMPRESSION: - No definite significant intraorbital soft tissue findings to assessment is limited on a noncontrast CT of the orbits. No retrobulbar mass lesions and no cellulitic changes appreciated. - There are large fluid levels within the left maxillary sinus and within the right frontal sinus the can be correlated for clinical signs of acute sinusitis. - A peripherally ossified structure extending from the dorsal margin of the right nasolacrimal duct into the right maxillary sinus is stable when compared to examinations dated back to 08/24/2008 favoring a benign etiology. Medications Medications Current Medications Acetaminophen (Acetaminophen 325 Mg Tablet) 650 mg PO Q6H PRN PRN Reason: Headache/Pain Mild Scale (1-3) Last Admin: 01/24/23 12:40 Dose: 650 mg Albuterol Sulfate (Albuterol Sulfate 90 Mcg 8 Gm Inhaler) 2 puff INHALE Q6H PRN PRN Reason: Wheezing Alprazolam (Alprazolam 0.5 Mg Tablet) 0.5 mg PO BEDTIME [facility] Last Admin: 01/23/23 21:20 Dose: 0.5 mg Alprazolam (Alprazolam 0.25 Mg Tablet) 0.25 mg PO Q4H PRN PRN Reason: Anxiety Last Admin: 01/24/23 05:36 Dose: 0.25 mg Amlodipine Besylate (Amlodipine Besylate 5 Mg Tablet) 5 mg PO DAILY [facility]; Protocol Last Admin: 01/24/23 09:23 Dose: 5 mg Bisacodyl (Bisacodyl 10 Mg Supp.Rect) 10 mg [place] DAILY PRN PRN Reason: Constipation Divalproex Sodium (Divalproex Sodium Sprinkles 125 Mg ) 375 mg PO BID [facility] Last Admin: 01/24/23 09:22 Dose: 375 mg Gabapentin (Gabapentin 100 Mg Capsule) 100 mg PO TID [facility] Last Admin: 01/24/23 09:22 Dose: 100 mg Guaifenesin/Dextromethorphan (Guaifenesin Dm 200/20/10 Ml 10 Ml Syrup) 10 ml PO Q4H PRN PRN Reason: Cough Last Admin: 11/20/22 05:31 Dose: 10 ml Hydroxyzine HCl (Hydroxyzine Hcl 50 Mg Tablet) 50 mg PO Q4H PRN PRN Reason: Anxiety Last Admin: 01/21/23 01:27 Dose: 50 mg Lamotrigine (Lamotrigine 100 Mg Tablet) 100 mg PO BID [facility] Last Admin: 01/24/23 09:23 Dose: 100 mg Latanoprost (Latanoprost 0.005 % Ophth No 2.5 Ml Drops) 1 drop EYE-BOTH BEDTIME [facility] Last Admin: 01/23/23 21:20 Dose: 1 drop Lidocaine (Lidocaine 5 % Ointment 35 Gm) 1 appl TOPICAL QID [facility] Last Admin: 01/24/23 09:24 Dose: 1 appl Multi-Ingred Cream/Lotion/Oil/Oint (Mineral Oil/Petrolatum,White 106 Gm Tube) 1 appl TOPICAL BID PRN; Protocol PRN Reason: dry skin Nortriptyline HCl (Nortriptyline Hcl 25 Mg Capsule) 50 mg PO BEDTIME [facility] Last Admin: 01/23/23 21:19 Dose: 50 mg Olanzapine (Olanzapine 2.5 Mg Tablet) 2.5 mg PO DAILY [facility] Last Admin: 01/24/23 09:23 Dose: 2.5 mg Olanzapine (Olanzapine 2.5 Mg Tablet) 2.5 mg PO DAILY@1500 [facility] Last Admin: 01/23/23 14:33 Dose: 2.5 mg Olanzapine (Olanzapine 5 Mg Tablet) 5 mg PO BEDTIME [facility] Last Admin: 01/23/23 21:20 Dose: 5 mg Ondansetron HCl (Ondansetron Odt 4 Mg Tab.Rapdis) 4 mg TRANSLINGU Q6H PRN PRN Reason: Nausea and Vomiting Last Admin: 01/11/23 08:34 Dose: 4 mg Polyethylene Glycol (Polyethylene Glycol 3350 17 Gm Powd.Pack) 17 gm PO BID [facility] Last Admin: 01/24/23 09:22 Dose: Not Given Senna/Docusate Sodium (Sennosides/Docusate Sodium Tablet) 2 tab PO BID [facility] Last Admin: 01/24/23 09:24 Dose: 2 tab Sodium Biphosphate/Sodium Phosphate (Sodium Phosphate,[place]-Dibasic 133 Ml Enema) 133 ml [place] ONCE PRN PRN Reason: Constipation Tamsulosin HCl (Tamsulosin Hcl 0.4 Mg Capsule) 0.4 mg PO DAILY [facility] Last Admin: 01/24/23 09:22 Dose: 0.4 mg Trazodone HCl (Trazodone Hcl 100 Mg Tablet) 200 mg PO BEDTIME [facility] Last Admin: 01/23/23 21:19 Dose: 200 mg Venlafaxine HCl (Venlafaxine Hcl Er 75 Mg Cap.Er.24h) 75 mg PO DAILY [facility] Last Admin: 01/24/23 09:23 Dose: 75 mg Allergies Allergies Allergy/AdvReac Type Severity Reaction Status Date / Time fentanyl [FENTANYL] Allergy Intermediate unknown Verified 04/08/22 07:00 Assessment & Plan Assessment & Plan (1) Cognitive and neurobehavioral dysfunction following brain injury: Status: Acute Code(s): G31.89 - Other specified degenerative diseases of nervous system; F09 - Unspecified mental disorder due to known physiological condition; S06.9X9S - Unspecified intracranial injury with loss of consciousness of unspecified duration, sequela (2) Major depressive disorder, recurrent severe without psychotic features: Status: Acute Code(s): F33.2 - Major depressive disorder, recurrent severe without psychotic features (3) Swallowing dysfunction: Status: Acute Code(s): R13.10 - Dysphagia, unspecified Plan Patient seems minimally less labile with olanzapine during the day and alprazolam to decrease irritability reactivity monitor for over sedation continue discharge planning Encourage daily strength training lower Effexor to 75 mg in case it is overly stimulating the patient to increased reactivity Start Depakote 125 mg twice a day will start gradually for mood instability 01/05: Continue current plans and regimen 01/06/2023 Patient feels better on Depakote increase Depakote to 125 t.i.d. lower Lamictal 01/07/2023 Increase Depakote to 250 b.i.d. secondary to anxiety reviewed cognitive behavioral strategies 01/08/23 pt seems improved with depakote cont plan of care 01/09/23 Pt seen in f/u mood improved encourage inc perspective cbt skills 01/11: Continue tx plan. 01/12/23 Monitor medical safety ck o 2 isolation cont meds otherwise 2022 Continue Effexor Depakote Lamictal monitor patient for more acute COVID symptoms continue isolation 01/14/2023 Continue plan of care encourage coping strategies reading Increase Depakote 375 mg twice a day Depakote level 40 to encourage CBT strategies continue continue isolation 01/15/23 cont plan of care 01/16/2023 Patient needs much reassurance and support continue medication encourage perspective coping strategies 01/17/2023 Continue plan of care 01/18/2023 Continue to monitor response to need for isolation and recent COVID 01/19/23 Pt seen in f/u mood depressed agitated inc depakote inc zyprexa for mood stability 01/20/2023 Patient seen in follow-up less depressed less labile continue difficulty with isolation 01/21/2023 Patient seen in follow-up gradually improving coping better using more relaxation and cognitive techniques including music 01/22/23 cont plan of care off isolation d/c planning c/o pain r nasal orbital ridge 01/23/2023 CT orbital scan consult Dr. Casarez continue medications otherwise 01/24 reports right periorobital discomfort; added nasal saline drops; discussed with Dr. Mayberry who recs augmentin bid for 7 days if continued discomfort Patient educated on: diagnosis and medical condition Informed Consent: understands Reason for contiued inpatient stay Substantial Risk for: rapid decompensation Time Spent With Patient Time: Total time managing care of this patient today ____ minutes.
[2023-01-24 19:40] VITALS: BP 121/74; PULSE 83; RESP 18; TEMP 36.7; O2SAT 96
[2023-01-24] MEDS: Ibuprofen 800 MG TABLET PO (20:26)
[2023-01-24] MEDS: ALPRAZolam 0.5 MG TABLET PO (21:56)
[2023-01-24] MEDS: traZODone HCL 100 MG TABLET 200 MG PO (21:59)
[2023-01-24] MEDS: Nortriptyline HCl 25 MG CAPSULE 50 MG PO (21:59)
[2023-01-24] MEDS: Latanoprost 0.005 % Ophth Sol 2.5 ML DROPS 1 DROP EYE-BOTH (22:01)
[2023-01-24] MEDS: OLANZapine 5 MG TABLET PO (22:02)
[2023-01-24] MEDS: polyethylene glycoL 3350 17 GM POWD.PACK PO (22:02)
[2023-01-24] MEDS: Sodium Chloride 0.65 % Nasal 44 ML SPRBTL 1 SPRAY NOSTRIL-B (22:04)
[2023-01-25 06:00] VITALS: BP 124/92; PULSE 79; RESP 16; TEMP 36.3; O2SAT 95
[2023-01-25] MEDS: Sennosides/Docusate Sodium TABLET 2 TAB PO ×2 (08:10→20:23)
[2023-01-25] MEDS: Ibuprofen 800 MG TABLET PO ×3 (08:10→16:38)
[2023-01-25] MEDS: Divalproex Sodium Sprinkles 125 MG CAP.DR.SPR 375 MG PO ×2 (08:14→20:24)
[2023-01-25] MEDS: OLANZapine 2.5 MG TABLET PO ×3 (08:14→15:36)
[2023-01-25] MEDS: Gabapentin 100 MG CAPSULE PO ×3 (08:14→20:24)
[2023-01-25] MEDS: amLODIPine Besylate 5 MG TABLET PO (08:14)
[2023-01-25] MEDS: lamoTRIgine 100 MG TABLET PO ×2 (08:14→20:24)
[2023-01-25] MEDS: Tamsulosin HCL 0.4 MG CAPSULE PO (08:16)
[2023-01-25] MEDS: Venlafaxine HCl ER 75 MG CAP.ER.24H PO (08:16)
[2023-01-25] MEDS: Sodium Chloride 0.65 % Nasal 44 ML SPRBTL 1 SPRAY NOSTRIL-B ×2 (10:55→16:40)
[2023-01-25] MEDS: polyethylene glycoL 3350 17 GM POWD.PACK PO ×2 (11:03→20:23)
--- NOTE | 2023-01-25 16:30 | P.PNPSI_ITS ---
Subjective Subjective Date of Service: 01/25/23 Reason For Visit: Depression hopelessness irritability Interim History: Met with patient; discussed with nursing Patient reports much benefit from ibuprofen and from nasal spray. He says that if a Neti pot exists he would like to do that. Also agrees with potential plan for antibiotic if symptoms do not continue to resolve. Patient expresses gratitude and that he is feeling much better. Mental Status Exam Mental Status Exam Narrative: Patient Appearance: Appropriate Patient Orientation: Person, Place, Time and Situation Level of Consciousness: Awake Patient Behavior: Appropriate Mood Description: Appropriate and Constricted Affect Description: Constricted, Depressed and Apprehensive Patient Cognition Impaired: Yes Ability to Follow Directions: Good Speech Pattern: Clear Memory Description: Episodic Impaired and Working Impaired Hallucinations: None Delusions: Not Present Thought Process: Rumination Thought Content: positive for Intact, positive for Goal Oriented, negative for Thought Blocking, negative for Suicidal Ideation or negative for Homicidal Ideation Depressive Symptoms: Increased Anxiety, Loss of Int. in Activity and Difficulty Concentrating Judgement: Fair Diagnostics Vital Signs (24Hr): Vital Signs - 24 hr 01/24/23 19:40 01/25/23 06:00 Temperature 98.1 F 97.3 F Pulse Rate 83 79 Respiratory Rate 18 16 Blood Pressure 121/74 124/92 H Pulse Oximetry 96 95 Oxygen Delivery Method Room Air Room Air BMI result Body Mass Index 30.2 Labs 11/13/22 07:43 11/12/22 09:32 Imaging Radiology Impressions: ITS Impressions Chest X-Ray 10/20/22 15:45 IMPRESSION: 1. Low lung volumes with bibasilar linear disc atelectasis versus scarring. 2. No airspace consolidation or effusion. Head CT 11/08/22 12:29 IMPRESSION: No acute intracranial hemorrhage or territorial infarction. Stable chronic postoperative changes with gliosis and encephalomalacia in the right frontal and right temporal lobes. Ex vacuo dilatation of the ventricles and diffuse parenchymal volume loss. Right-sided craniotomy changes. Chest X-Ray 11/12/22 10:32 IMPRESSION: Hypoexpanded lungs with bibasilar platelike atelectasis. Brain MRI 11/12/22 13:15 IMPRESSION: 1. No demonstrated acute intracranial abnormalities. 2. Chronic encephalomalacia of the right temporal, right frontal, and left occipital lobes. Small regions of chronic encephalomalacia in the parasagittal aspects of the bilateral parietal lobes. Moderate underlying microangiopathy and generalized cerebral volume loss. Chest X-Ray 11/14/22 15:52 IMPRESSION: Low lung volumes, bibasilar subsegmental atelectasis and slight elevation of the right hemidiaphragm similar to previous exam. Modified Barium Swallow 11/21/22 15:11 IMPRESSION: Laryngeal penetration on several occasions but no laryngeal aspiration. Mild retention of solid food in the valleculae which cleared with subsequent oral administration of water or thin barium. Correlate with speech therapy results. Orbit CT 01/23/23 14:05 IMPRESSION: - No definite significant intraorbital soft tissue findings to assessment is limited on a noncontrast CT of the orbits. No retrobulbar mass lesions and no cellulitic changes appreciated. - There are large fluid levels within the left maxillary sinus and within the right frontal sinus the can be correlated for clinical signs of acute sinusitis. - A peripherally ossified structure extending from the dorsal margin of the right nasolacrimal duct into the right maxillary sinus is stable when compared to examinations dated back to 08/24/2008 favoring a benign etiology. Medications Medications Current Medications Acetaminophen (Acetaminophen 325 Mg Tablet) 1,000 mg PO Q6H PRN PRN Reason: Headache/Pain Mild Scale (1-3) Albuterol Sulfate (Albuterol Sulfate 90 Mcg 8 Gm Inhaler) 2 puff INHALE Q6H PRN PRN Reason: Wheezing Alprazolam (Alprazolam 0.5 Mg Tablet) 0.5 mg PO BEDTIME [facility] Last Admin: 01/24/23 21:56 Dose: 0.5 mg Alprazolam (Alprazolam 0.25 Mg Tablet) 0.25 mg PO Q4H PRN PRN Reason: Anxiety Last Admin: 01/24/23 05:36 Dose: 0.25 mg Amlodipine Besylate (Amlodipine Besylate 5 Mg Tablet) 5 mg PO DAILY [facility]; Protocol Last Admin: 01/25/23 08:14 Dose: 5 mg Bisacodyl (Bisacodyl 10 Mg Supp.Rect) 10 mg [place] DAILY PRN PRN Reason: Constipation Divalproex Sodium (Divalproex Sodium Sprinkles 125 Mg Cap.) 375 mg PO BID [facility] Last Admin: 01/25/23 08:14 Dose: 375 mg Gabapentin (Gabapentin 100 Mg Capsule) 100 mg PO TID [facility] Last Admin: 01/25/23 15:36 Dose: 100 mg Guaifenesin/Dextromethorphan (Guaifenesin Dm 200/20/10 Ml 10 Ml Syrup) 10 ml PO Q4H PRN PRN Reason: Cough Last Admin: 11/20/22 05:31 Dose: 10 ml Hydroxyzine HCl (Hydroxyzine Hcl 50 Mg Tablet) 50 mg PO Q4H PRN PRN Reason: Anxiety Last Admin: 01/21/23 01:27 Dose: 50 mg Ibuprofen (Ibuprofen 800 Mg Tablet) 800 mg PO TIDWM [facility] Stop: 01/27/23 23:50 Last Admin: 01/25/23 11:41 Dose: 800 mg Lamotrigine (Lamotrigine 100 Mg Tablet) 100 mg PO BID [facility] Last Admin: 01/25/23 08:14 Dose: 100 mg Latanoprost (Latanoprost 0.005 % Ophth No 2.5 Ml Drops) 1 drop EYE-BOTH BEDTIME [facility] Last Admin: 01/24/23 22:01 Dose: 1 drop Multi-Ingred Cream/Lotion/Oil/Oint (Mineral Oil/Petrolatum,White 106 Gm Tube) 1 appl TOPICAL BID PRN; Protocol PRN Reason: dry skin Nortriptyline HCl (Nortriptyline Hcl 25 Mg Capsule) 50 mg PO BEDTIME [facility] Last Admin: 01/24/23 21:59 Dose: 50 mg Olanzapine (Olanzapine 2.5 Mg Tablet) 2.5 mg PO DAILY [facility] Last Admin: 01/25/23 08:24 Dose: 2.5 mg Olanzapine (Olanzapine 2.5 Mg Tablet) 2.5 mg PO DAILY@1500 [facility] Last Admin: 01/25/23 15:36 Dose: 2.5 mg Olanzapine (Olanzapine 5 Mg Tablet) 5 mg PO BEDTIME [facility] Last Admin: 01/24/23 22:02 Dose: 5 mg Ondansetron HCl (Ondansetron Odt 4 Mg Tab.Rapdis) 4 mg TRANSLINGU Q6H PRN PRN Reason: Nausea and Vomiting Last Admin: 01/11/23 08:34 Dose: 4 mg Polyethylene Glycol (Polyethylene Glycol 3350 17 Gm Powd.Pack) 17 gm PO BID [facility] Last Admin: 01/25/23 11:03 Dose: 17 gm Senna/Docusate Sodium (Sennosides/Docusate Sodium Tablet) 2 tab PO BID [facility] Last Admin: 01/25/23 08:10 Dose: 2 tab Sodium Biphosphate/Sodium Phosphate (Sodium Phosphate,[place]-Dibasic 133 Ml Enema) 133 ml [place] ONCE PRN PRN Reason: Constipation Sodium Chloride (Sodium Chloride 0.65 % Nasal 44 Ml Sprbtl) 1 spray NOSTRIL-B Q2H PRN PRN Reason: sinus pain Last Admin: 01/25/23 10:55 Dose: 1 spray Tamsulosin HCl (Tamsulosin Hcl 0.4 Mg Capsule) 0.4 mg PO DAILY [facility] Last Admin: 01/25/23 08:16 Dose: 0.4 mg Trazodone HCl (Trazodone Hcl 100 Mg Tablet) 200 mg PO BEDTIME [facility] Last Admin: 01/24/23 21:59 Dose: 200 mg Venlafaxine HCl (Venlafaxine Hcl Er 75 Mg Cap.Er.24h) 75 mg PO DAILY [facility] Last Admin: 01/25/23 08:16 Dose: 75 mg Allergies Allergies Allergy/AdvReac Type Severity Reaction Status Date / Time fentanyl [FENTANYL] Allergy Intermediate unknown Verified 04/08/22 07:00 Assessment & Plan Assessment & Plan (1) Cognitive and neurobehavioral dysfunction following brain injury: Status: Acute Code(s): G31.89 - Other specified degenerative diseases of nervous system; F09 - Unspecified mental disorder due to known physiological condition; S06.9X9S - Unspecified intracranial injury with loss of consciousness of unspecified duration, sequela (2) Major depressive disorder, recurrent severe without psychotic features: Status: Acute Code(s): F33.2 - Major depressive disorder, recurrent severe without psychotic features (3) Swallowing dysfunction: Status: Acute Code(s): R13.10 - Dysphagia, unspecified (4) Sinusitis: Status: Acute Code(s): J32.9 - Chronic sinusitis, unspecified Plan Patient seems minimally less labile with olanzapine during the day and alprazolam to decrease irritability reactivity monitor for over sedation continue discharge planning Encourage daily strength training lower Effexor to 75 mg in case it is overly stimulating the patient to increased reactivity Start Depakote 125 mg twice a day will start gradually for mood instability 01/05: Continue current plans and regimen 01/06/2023 Patient feels better on Depakote increase Depakote to 125 t.i.d. lower Lamictal 01/07/2023 Increase Depakote to 250 b.i.d. secondary to anxiety reviewed cognitive behavioral strategies 01/08/23 pt seems improved with depakote cont plan of care 01/09/23 Pt seen in f/u mood improved encourage inc perspective cbt skills 01/11: Continue tx plan. 01/12/23 Monitor medical safety ck o 2 isolation cont meds otherwise 2022 Continue Effexor Depakote Lamictal monitor patient for more acute COVID symptoms continue isolation 01/14/2023 Continue plan of care encourage coping strategies reading Increase Depakote 375 mg twice a day Depakote level 40 to encourage CBT strategies continue continue isolation 01/15/23 cont plan of care 01/16/2023 Patient needs much reassurance and support continue medication encourage perspective coping strategies 01/17/2023 Continue plan of care 01/18/2023 Continue to monitor response to need for isolation and recent COVID 01/19/23 Pt seen in f/u mood depressed agitated inc depakote inc zyprexa for mood stability 01/20/2023 Patient seen in follow-up less depressed less labile continue difficulty with isolation 01/21/2023 Patient seen in follow-up gradually improving coping better using more relaxation and cognitive techniques including music 01/22/23 cont plan of care off isolation d/c planning c/o pain r nasal orbital ridge 01/23/2023 CT orbital scan consult Dr. Casarez continue medications otherwise 01/24 reports right periorobital discomfort; added nasal saline drops; discussed with Dr. Mayberry who recs augmentin bid for 7 days if continued discomfort 01/25 continue with comfort medication; primary team to reassess whether not to start antibiotic for acute sinusitis Patient educated on: medical condition Informed Consent: understands Reason for contiued inpatient stay Substantial Risk for: rapid decompensation Time Spent With Patient Time: Total time managing care of this patient today ____ minutes.
[2023-01-25 18:00] VITALS: BP 118/63; PULSE 78; RESP 18; TEMP 36.7; O2SAT 96
[2023-01-25] MEDS: traZODone HCL 100 MG TABLET 200 MG PO (20:23)
[2023-01-25] MEDS: OLANZapine 5 MG TABLET PO (20:24)
[2023-01-25] MEDS: ALPRAZolam 0.5 MG TABLET PO (20:24)
[2023-01-25] MEDS: Nortriptyline HCl 25 MG CAPSULE 50 MG PO (20:24)
[2023-01-25] MEDS: Latanoprost 0.005 % Ophth Sol 2.5 ML DROPS 1 DROP EYE-BOTH (20:33)
[2023-01-26 09:15] VITALS: BP 138/95; PULSE 83; RESP 16; TEMP 36.7; O2SAT 95
[2023-01-26] MEDS: Ibuprofen 800 MG TABLET PO ×3 (09:17→17:12)
[2023-01-26] MEDS: amLODIPine Besylate 5 MG TABLET PO (09:18)
[2023-01-26] MEDS: Gabapentin 100 MG CAPSULE PO ×3 (09:19→20:25)
[2023-01-26] MEDS: Sennosides/Docusate Sodium TABLET 2 TAB PO ×2 (09:19→20:26)
[2023-01-26] MEDS: Venlafaxine HCl ER 75 MG CAP.ER.24H PO (09:20)
[2023-01-26] MEDS: polyethylene glycoL 3350 17 GM POWD.PACK PO ×2 (09:20→20:10)
[2023-01-26] MEDS: Tamsulosin HCL 0.4 MG CAPSULE PO (09:21)
[2023-01-26] MEDS: Divalproex Sodium Sprinkles 125 MG CAP.DR.SPR 375 MG PO ×2 (09:21→20:24)
[2023-01-26] MEDS: lamoTRIgine 100 MG TABLET PO ×2 (09:21→20:25)
[2023-01-26] MEDS: OLANZapine 2.5 MG TABLET PO ×2 (09:22→14:52)
--- NOTE | 2023-01-26 11:06 | P.PNPSI_ITS ---
Subjective Subjective Date of Service: 01/26/23 Reason For Visit: Depression hopelessness irritability Subjective Notes: Conditional Voluntary Interim History: Pt reports feeling frustrated about alf where he is going next and the fact that it is taking too long for him to go there. He reports feeling very anxious. He asking for PRN for anxiety. Pt reports sleeping and eating well. No SI/HI. Medication Compliance: Yes Review of Systems Review of Systems Denies chest pain Denies shortness of breath Denies nausea vomiting diarrhea Denies fever chills Yes all other systems are reviewed and are negative, Unobtainable due to mental condition and Unobtainable due to mental status Mental Status Exam Mental Status Exam Narrative: Patient Appearance: Appropriate Patient Orientation: Person, Place, Time and Situation Level of Consciousness: Awake Patient Behavior: Appropriate Behavior Comments: Mood Description: Appropriate and Constricted Affect Description: Constricted, Depressed and Apprehensive Patient Cognition Impaired: Yes Ability to Follow Directions: Good Speech Pattern: Clear Memory Description: Episodic Impaired and Working Impaired Diagnostics Vital Signs (24Hr): Vital Signs - 24 hr 01/25/23 18:00 01/26/23 09:15 Temperature 98.1 F 98.1 F Pulse Rate 78 83 Respiratory Rate 18 16 Blood Pressure 118/63 138/95 H Pulse Oximetry 96 95 Oxygen Delivery Method Room Air Room Air BMI result Body Mass Index 30.2 Labs 11/13/22 07:43 11/12/22 09:32 Imaging Radiology Impressions: ITS Impressions Chest X-Ray 10/20/22 15:45 IMPRESSION: 1. Low lung volumes with bibasilar linear disc atelectasis versus scarring. 2. No airspace consolidation or effusion. Head CT 11/08/22 12:29 IMPRESSION: No acute intracranial hemorrhage or territorial infarction. Stable chronic postoperative changes with gliosis and encephalomalacia in the right frontal and right temporal lobes. Ex vacuo dilatation of the ventricles and diffuse parenchymal volume loss. Right-sided craniotomy changes. Chest X-Ray 11/12/22 10:32 IMPRESSION: Hypoexpanded lungs with bibasilar platelike atelectasis. Brain MRI 11/12/22 13:15 IMPRESSION: 1. No demonstrated acute intracranial abnormalities. 2. Chronic encephalomalacia of the right temporal, right frontal, and left occipital lobes. Small regions of chronic encephalomalacia in the parasagittal aspects of the bilateral parietal lobes. Moderate underlying microangiopathy and generalized cerebral volume loss. Chest X-Ray 11/14/22 15:52 IMPRESSION: Low lung volumes, bibasilar subsegmental atelectasis and slight elevation of the right hemidiaphragm similar to previous exam. Modified Barium Swallow 11/21/22 15:11 IMPRESSION: Laryngeal penetration on several occasions but no laryngeal aspiration. Mild retention of solid food in the valleculae which cleared with subsequent oral administration of water or thin barium. Correlate with speech therapy results. Orbit CT 01/23/23 14:05 IMPRESSION: - No definite significant intraorbital soft tissue findings to assessment is limited on a noncontrast CT of the orbits. No retrobulbar mass lesions and no cellulitic changes appreciated. - There are large fluid levels within the left maxillary sinus and within the right frontal sinus the can be correlated for clinical signs of acute sinusitis. - A peripherally ossified structure extending from the dorsal margin of the right nasolacrimal duct into the right maxillary sinus is stable when compared to examinations dated back to 08/24/2008 favoring a benign etiology. Medications Medications Current Medications Acetaminophen (Acetaminophen 325 Mg Tablet) 1,000 mg PO Q6H PRN PRN Reason: Headache/Pain Mild Scale (1-3) Albuterol Sulfate (Albuterol Sulfate 90 Mcg 8 Gm Inhaler) 2 puff INHALE Q6H PRN PRN Reason: Wheezing Alprazolam (Alprazolam 0.5 Mg Tablet) 0.5 mg PO BEDTIME [facility] Last Admin: 01/25/23 20:24 Dose: 0.5 mg Alprazolam (Alprazolam 0.25 Mg Tablet) 0.25 mg PO Q4H PRN PRN Reason: Anxiety Last Admin: 01/26/23 11:23 Dose: 0.25 mg Amlodipine Besylate (Amlodipine Besylate 5 Mg Tablet) 5 mg PO DAILY [facility]; Protocol Last Admin: 01/26/23 09:18 Dose: 5 mg Bisacodyl (Bisacodyl 10 Mg Supp.Rect) 10 mg [place] DAILY PRN PRN Reason: Constipation Divalproex Sodium (Divalproex Sodium Sprinkles 125 Mg Cap.) 375 mg PO BID [facility] Last Admin: 01/26/23 09:21 Dose: 375 mg Gabapentin (Gabapentin 100 Mg Capsule) 100 mg PO TID [facility] Last Admin: 01/26/23 09:19 Dose: 100 mg Guaifenesin/Dextromethorphan (Guaifenesin Dm 200/20/10 Ml 10 Ml Syrup) 10 ml PO Q4H PRN PRN Reason: Cough Last Admin: 11/20/22 05:31 Dose: 10 ml Hydroxyzine HCl (Hydroxyzine Hcl 50 Mg Tablet) 50 mg PO Q4H PRN PRN Reason: Anxiety Last Admin: 01/21/23 01:27 Dose: 50 mg Ibuprofen (Ibuprofen 800 Mg Tablet) 800 mg PO TIDWM [facility] Stop: 01/27/23 23:50 Last Admin: 01/26/23 11:43 Dose: 800 mg Lamotrigine (Lamotrigine 100 Mg Tablet) 100 mg PO BID [facility] Last Admin: 01/26/23 09:21 Dose: 100 mg Latanoprost (Latanoprost 0.005 % Ophth No 2.5 Ml Drops) 1 drop EYE-BOTH BEDTIME [facility] Last Admin: 01/25/23 20:33 Dose: 1 drop Multi-Ingred Cream/Lotion/Oil/Oint (Mineral Oil/Petrolatum,White 106 Gm Tube) 1 appl TOPICAL BID PRN; Protocol PRN Reason: dry skin Nortriptyline HCl (Nortriptyline Hcl 25 Mg Capsule) 50 mg PO BEDTIME [facility] Last Admin: 01/25/23 20:24 Dose: 50 mg Olanzapine (Olanzapine 2.5 Mg Tablet) 2.5 mg PO DAILY [facility] Last Admin: 01/26/23 09:22 Dose: 2.5 mg Olanzapine (Olanzapine 2.5 Mg Tablet) 2.5 mg PO DAILY@1500 [facility] Last Admin: 01/25/23 15:36 Dose: 2.5 mg Olanzapine (Olanzapine 5 Mg Tablet) 5 mg PO BEDTIME [facility] Last Admin: 01/25/23 20:24 Dose: 5 mg Ondansetron HCl (Ondansetron Odt 4 Mg Tab.Rapdis) 4 mg TRANSLINGU Q6H PRN PRN Reason: Nausea and Vomiting Last Admin: 01/11/23 08:34 Dose: 4 mg Polyethylene Glycol (Polyethylene Glycol 3350 17 Gm Powd.Pack) 17 gm PO BID [facility] Last Admin: 01/26/23 09:20 Dose: 17 gm Senna/Docusate Sodium (Sennosides/Docusate Sodium Tablet) 2 tab PO BID [facility] Last Admin: 01/26/23 09:19 Dose: 2 tab Sodium Biphosphate/Sodium Phosphate (Sodium Phosphate,[place]-Dibasic 133 Ml Enema) 133 ml [place] ONCE PRN PRN Reason: Constipation Sodium Chloride (Sodium Chloride 0.65 % Nasal 44 Ml Sprbtl) 1 spray NOSTRIL-B Q2H PRN PRN Reason: sinus pain Last Admin: 01/25/23 16:40 Dose: 1 spray Tamsulosin HCl (Tamsulosin Hcl 0.4 Mg Capsule) 0.4 mg PO DAILY [facility] Last Admin: 01/26/23 09:21 Dose: 0.4 mg Trazodone HCl (Trazodone Hcl 100 Mg Tablet) 200 mg PO BEDTIME [facility] Last Admin: 01/25/23 20:23 Dose: 200 mg Venlafaxine HCl (Venlafaxine Hcl Er 75 Mg Cap.Er.24h) 75 mg PO DAILY [facility] Last Admin: 01/26/23 09:20 Dose: 75 mg Allergies Allergies Allergy/AdvReac Type Severity Reaction Status Date / Time fentanyl [FENTANYL] Allergy Intermediate unknown Verified 04/08/22 07:00 Assessment & Plan Assessment & Plan (1) Major depressive disorder, recurrent severe without psychotic features: Status: Acute Code(s): F33.2 - Major depressive disorder, recurrent severe without psychotic features (2) Cognitive and neurobehavioral dysfunction following brain injury: Status: Acute Code(s): G31.89 - Other specified degenerative diseases of nervous system; F09 - Unspecified mental disorder due to known physiological condition; S06.9X9S - Unspecified intracranial injury with loss of consciousness of unspecified duration, sequela (3) Swallowing dysfunction: Status: Acute Code(s): R13.10 - Dysphagia, unspecified (4) Personality disorder in adult: Status: Acute Code(s): F60.9 - Personality disorder, unspecified Plan Patient seems minimally less labile with olanzapine during the day and alprazolam to decrease irritability reactivity monitor for over sedation continue discharge planning Encourage daily strength training lower Effexor to 75 mg in case it is overly stimulating the patient to increased reactivity Start Depakote 125 mg twice a day will start gradually for mood instability 01/05: Continue current plans and regimen 01/06/2023 Patient feels better on Depakote increase Depakote to 125 t.i.d. lower Lamictal 01/07/2023 Increase Depakote to 250 b.i.d. secondary to anxiety reviewed cognitive behavioral strategies 01/08/23 pt seems improved with depakote cont plan of care 01/09/23 Pt seen in f/u mood improved encourage inc perspective cbt skills 01/11: Continue tx plan. 01/12/23 Monitor medical safety ck o 2 isolation cont meds otherwise 2022 Continue Effexor Depakote Lamictal monitor patient for more acute COVID symptoms continue isolation 01/14/2023 Continue plan of care encourage coping strategies reading Increase Depakote 375 mg twice a day Depakote level 40 to encourage CBT strategies continue continue isolation 01/15/23 cont plan of care 01/16/2023 Patient needs much reassurance and support continue medication encourage perspective coping strategies 01/17/2023 Continue plan of care 01/18/2023 Continue to monitor response to need for isolation and recent COVID 01/19/23 Pt seen in f/u mood depressed agitated inc depakote inc zyprexa for mood stability 01/20/2023 Patient seen in follow-up less depressed less labile continue difficulty with isolation 01/21/2023 Patient seen in follow-up gradually improving coping better using more relaxation and cognitive techniques including music 01/22/23 cont plan of care off isolation d/c planning c/o pain r nasal orbital ridge 01/23/2023 CT orbital scan consult Dr. Casarez continue medications otherwise 01/24 reports right periorobital discomfort; added nasal saline drops; discussed with Dr. Mayberry who recs augmentin bid for 7 days if continued discomfort 01/25 continue with comfort medication; primary team to reassess whether not to start antibiotic for acute sinusitis 01/26 continue current tx. Reason for contiued inpatient stay Substantial Risk for: stable for discharge Time Spent With Patient Time: Total time managing care of this patient today ____ minutes.
[2023-01-26] MEDS: ALPRAZolam 0.25 MG TABLET PO (11:23)
[2023-01-26] MEDS: hydrOXYzine HCL 50 MG TABLET PO (14:12)
[2023-01-26] MEDS: Sodium Chloride 0.65 % Nasal 44 ML SPRBTL 1 SPRAY NOSTRIL-B (14:12)
[2023-01-26] MEDS: guaiFENesin LA 600 MG TAB.ER.12H PO ×2 (16:01→20:25)
[2023-01-26 18:00] VITALS: BP 137/69; PULSE 73; RESP 18; TEMP 36.4; O2SAT 95
[2023-01-26] MEDS: Phenylephrine HCl 0.5 % Nasal 15 ML SPRBTL 2 SPRAY NOSTRIL-B (20:10)
[2023-01-26] MEDS: Nortriptyline HCl 25 MG CAPSULE 50 MG PO (20:24)
[2023-01-26] MEDS: ALPRAZolam 0.5 MG TABLET PO (20:25)
[2023-01-26] MEDS: traZODone HCL 100 MG TABLET 200 MG PO (20:25)
[2023-01-26] MEDS: OLANZapine 5 MG TABLET PO (20:25)
[2023-01-26] MEDS: Latanoprost 0.005 % Ophth Sol 2.5 ML DROPS 1 DROP EYE-BOTH (20:26)
[2023-01-27 06:00] VITALS: BP 118/72; PULSE 77; RESP 18; TEMP 36.7; O2SAT 97
[2023-01-27] MEDS: polyethylene glycoL 3350 17 GM POWD.PACK PO (09:48)
[2023-01-27] MEDS: amLODIPine Besylate 5 MG TABLET PO (09:48)
[2023-01-27] MEDS: Tamsulosin HCL 0.4 MG CAPSULE PO (09:48)
[2023-01-27] MEDS: Divalproex Sodium Sprinkles 125 MG CAP.DR.SPR 375 MG PO ×2 (09:49→21:43)
[2023-01-27] MEDS: lamoTRIgine 100 MG TABLET PO ×2 (09:49→21:44)
[2023-01-27] MEDS: Gabapentin 100 MG CAPSULE PO ×3 (09:49→21:44)
[2023-01-27] MEDS: Venlafaxine HCl ER 75 MG CAP.ER.24H PO (09:49)
[2023-01-27] MEDS: guaiFENesin LA 600 MG TAB.ER.12H PO ×2 (09:49→21:44)
[2023-01-27] MEDS: OLANZapine 2.5 MG TABLET PO ×2 (09:49→13:52)
[2023-01-27] MEDS: Ibuprofen 800 MG TABLET PO ×3 (09:50→16:41)
[2023-01-27] MEDS: Amoxicillin/Potassium Clav 500 MG TABLET PO ×2 (12:42→22:25)
[2023-01-27] MEDS: ALPRAZolam 0.25 MG TABLET PO (13:52)
[2023-01-27] MEDS: Phenylephrine HCl 0.5 % Nasal 15 ML SPRBTL 2 SPRAY NOSTRIL-B (16:08)
[2023-01-27 18:00] VITALS: BP 117/56; PULSE 96; RESP 18; TEMP 36.7; O2SAT 93
[2023-01-27] MEDS: traZODone HCL 100 MG TABLET 200 MG PO (21:43)
[2023-01-27] MEDS: Sennosides/Docusate Sodium TABLET 2 TAB PO (21:43)
[2023-01-27] MEDS: Nortriptyline HCl 25 MG CAPSULE 50 MG PO (21:43)
[2023-01-27] MEDS: OLANZapine 5 MG TABLET PO (21:44)
[2023-01-27] MEDS: Latanoprost 0.005 % Ophth Sol 2.5 ML DROPS 1 DROP EYE-BOTH (21:44)
[2023-01-27] MEDS: ALPRAZolam 0.5 MG TABLET PO (21:44)
--- NOTE | 2023-01-27 22:50 | HO.PSYCHPN ---
Subjective Subjective Date of Service: 01/27/23 Reason For Visit: Depression hopelessness irritability Subjective Notes: Conditional Voluntary Healthcare Proxy: No Guardianship: No Interim History: Patient had recent treatment for sinusitis pain and is on antibiotics Mental Status Exam Mental Status Exam Narrative: Patient Appearance: Appropriate Patient Orientation: Person, Place, Time and Situation Level of Consciousness: Awake Patient Behavior: Appropriate Behavior Comments: Mood Description: Appropriate and Constricted Affect Description: Constricted, Depressed and Apprehensive Patient Cognition Impaired: Yes Ability to Follow Directions: Good Speech Pattern: Clear Memory Description: Episodic Impaired and Working Impaired Diagnostics Vital Signs (24Hr): Vital Signs - 24 hr 01/27/23 06:00 01/27/23 18:00 Temperature 98.1 F 98.0 F Pulse Rate 77 96 Respiratory Rate 18 18 Blood Pressure 118/72 117/56 L Pulse Oximetry 97 93 Oxygen Delivery Method Room Air Room Air BMI result Body Mass Index 30.2 Labs 11/13/22 07:43 11/12/22 09:32 Imaging Radiology Impressions: ITS Impressions Chest X-Ray 10/20/22 15:45 IMPRESSION: 1. Low lung volumes with bibasilar linear disc atelectasis versus scarring. 2. No airspace consolidation or effusion. Head CT 11/08/22 12:29 IMPRESSION: No acute intracranial hemorrhage or territorial infarction. Stable chronic postoperative changes with gliosis and encephalomalacia in the right frontal and right temporal lobes. Ex vacuo dilatation of the ventricles and diffuse parenchymal volume loss. Right-sided craniotomy changes. Chest X-Ray 11/12/22 10:32 IMPRESSION: Hypoexpanded lungs with bibasilar platelike atelectasis. Brain MRI 11/12/22 13:15 IMPRESSION: 1. No demonstrated acute intracranial abnormalities. 2. Chronic encephalomalacia of the right temporal, right frontal, and left occipital lobes. Small regions of chronic encephalomalacia in the parasagittal aspects of the bilateral parietal lobes. Moderate underlying microangiopathy and generalized cerebral volume loss. Chest X-Ray 11/14/22 15:52 IMPRESSION: Low lung volumes, bibasilar subsegmental atelectasis and slight elevation of the right hemidiaphragm similar to previous exam. Modified Barium Swallow 11/21/22 15:11 IMPRESSION: Laryngeal penetration on several occasions but no laryngeal aspiration. Mild retention of solid food in the valleculae which cleared with subsequent oral administration of water or thin barium. Correlate with speech therapy results. Orbit CT 01/23/23 14:05 IMPRESSION: - No definite significant intraorbital soft tissue findings to assessment is limited on a noncontrast CT of the orbits. No retrobulbar mass lesions and no cellulitic changes appreciated. - There are large fluid levels within the left maxillary sinus and within the right frontal sinus the can be correlated for clinical signs of acute sinusitis. - A peripherally ossified structure extending from the dorsal margin of the right nasolacrimal duct into the right maxillary sinus is stable when compared to examinations dated back to 08/24/2008 favoring a benign etiology. Medications Medications Current Medications Acetaminophen (Acetaminophen 325 Mg Tablet) 1,000 mg PO Q6H PRN PRN Reason: Headache/Pain Mild Scale (1-3) Albuterol Sulfate (Albuterol Sulfate 90 Mcg 8 Gm Inhaler) 2 puff INHALE Q6H PRN PRN Reason: Wheezing Alprazolam (Alprazolam 0.5 Mg Tablet) 0.5 mg PO BEDTIME [facility] Last Admin: 01/27/23 21:44 Dose: 0.5 mg Alprazolam (Alprazolam 0.25 Mg Tablet) 0.25 mg PO Q4H PRN PRN Reason: Anxiety Last Admin: 01/27/23 13:52 Dose: 0.25 mg Amlodipine Besylate (Amlodipine Besylate 5 Mg Tablet) 5 mg PO DAILY [facility]; Protocol Last Admin: 01/27/23 09:48 Dose: 5 mg Amoxicillin/Clavulanate Potassium (Amoxicillin/Potassium Clav 500 Mg Tablet) 500 mg PO Q12H [facility] Stop: 02/02/23 23:01 Last Admin: 01/27/23 22:25 Dose: 500 mg Bisacodyl (Bisacodyl 10 Mg Supp.Rect) 10 mg [place] DAILY PRN PRN Reason: Constipation Divalproex Sodium (Divalproex Sodium Sprinkles 125 Mg ) 375 mg PO BID [facility] Last Admin: 01/27/23 21:43 Dose: 375 mg Gabapentin (Gabapentin 100 Mg Capsule) 100 mg PO TID [facility] Last Admin: 01/27/23 21:44 Dose: 100 mg Guaifenesin (Guaifenesin [place] 600 Mg Tab.Er.12h) 600 mg PO BID [facility] Last Admin: 01/27/23 21:44 Dose: 600 mg Hydroxyzine HCl (Hydroxyzine Hcl 50 Mg Tablet) 50 mg PO Q4H PRN PRN Reason: Anxiety Last Admin: 01/26/23 14:12 Dose: 50 mg Ibuprofen (Ibuprofen 800 Mg Tablet) 800 mg PO TIDWM [facility] Stop: 01/27/23 23:50 Last Admin: 01/27/23 16:41 Dose: 800 mg Lamotrigine (Lamotrigine 100 Mg Tablet) 100 mg PO BID [facility] Last Admin: 01/27/23 21:44 Dose: 100 mg Latanoprost (Latanoprost 0.005 % Ophth No 2.5 Ml Drops) 1 drop EYE-BOTH BEDTIME [facility] Last Admin: 01/27/23 21:44 Dose: 1 drop Multi-Ingred Cream/Lotion/Oil/Oint (Mineral Oil/Petrolatum,White 106 Gm Tube) 1 appl TOPICAL BID PRN; Protocol PRN Reason: dry skin Nortriptyline HCl (Nortriptyline Hcl 25 Mg Capsule) 50 mg PO BEDTIME [facility] Last Admin: 01/27/23 21:43 Dose: 50 mg Olanzapine (Olanzapine 2.5 Mg Tablet) 2.5 mg PO DAILY [facility] Last Admin: 01/27/23 09:49 Dose: 2.5 mg Olanzapine (Olanzapine 2.5 Mg Tablet) 2.5 mg PO DAILY@1500 [facility] Last Admin: 01/27/23 13:52 Dose: 2.5 mg Olanzapine (Olanzapine 5 Mg Tablet) 5 mg PO BEDTIME [facility] Last Admin: 01/27/23 21:44 Dose: 5 mg Ondansetron HCl (Ondansetron Odt 4 Mg Tab.Rapdis) 4 mg TRANSLINGU Q6H PRN PRN Reason: Nausea and Vomiting Last Admin: 01/11/23 08:34 Dose: 4 mg Phenylephrine HCl (Phenylephrine Hcl 0.5 % Nasal 15 Ml Sprbtl) 2 spray NOSTRIL-B Q4H PRN PRN Reason: sinus pressure/pain Stop: 01/29/23 15:05 Last Admin: 01/27/23 16:08 Dose: 2 spray Polyethylene Glycol (Polyethylene Glycol 3350 17 Gm Powd.Pack) 17 gm PO BID [facility] Last Admin: 01/27/23 22:15 Dose: Not Given Senna/Docusate Sodium (Sennosides/Docusate Sodium Tablet) 2 tab PO BID [facility] Last Admin: 01/27/23 21:43 Dose: 2 tab Sodium Biphosphate/Sodium Phosphate (Sodium Phosphate,[place]-Dibasic 133 Ml Enema) 133 ml [place] ONCE PRN PRN Reason: Constipation Tamsulosin HCl (Tamsulosin Hcl 0.4 Mg Capsule) 0.4 mg PO DAILY [facility] Last Admin: 01/27/23 09:48 Dose: 0.4 mg Trazodone HCl (Trazodone Hcl 100 Mg Tablet) 200 mg PO BEDTIME [facility] Last Admin: 01/27/23 21:43 Dose: 200 mg Venlafaxine HCl (Venlafaxine Hcl Er 75 Mg Cap.Er.24h) 75 mg PO DAILY [facility] Last Admin: 01/27/23 09:49 Dose: 75 mg Allergies Allergies Allergy/AdvReac Type Severity Reaction Status Date / Time fentanyl [FENTANYL] Allergy Intermediate unknown Verified 04/08/22 07:00 Assessment & Plan Assessment & Plan (1) Major depressive disorder, recurrent severe without psychotic features: Status: Acute Code(s): F33.2 - Major depressive disorder, recurrent severe without psychotic features (2) Cognitive and neurobehavioral dysfunction following brain injury: Status: Acute Code(s): G31.89 - Other specified degenerative diseases of nervous system; F09 - Unspecified mental disorder due to known physiological condition; S06.9X9S - Unspecified intracranial injury with loss of consciousness of unspecified duration, sequela (3) Swallowing dysfunction: Status: Acute Code(s): R13.10 - Dysphagia, unspecified (4) Personality disorder in adult: Status: Acute Code(s): F60.9 - Personality disorder, unspecified Plan Patient seems minimally less labile with olanzapine during the day and alprazolam to decrease irritability reactivity monitor for over sedation continue discharge planning Encourage daily strength training lower Effexor to 75 mg in case it is overly stimulating the patient to increased reactivity Start Depakote 125 mg twice a day will start gradually for mood instability 01/05: Continue current plans and regimen 01/06/2023 Patient feels better on Depakote increase Depakote to 125 t.i.d. lower Lamictal 01/07/2023 Increase Depakote to 250 b.i.d. secondary to anxiety reviewed cognitive behavioral strategies 01/08/23 pt seems improved with depakote cont plan of care 01/09/23 Pt seen in f/u mood improved encourage inc perspective cbt skills 01/11: Continue tx plan. 01/12/23 Monitor medical safety ck o 2 isolation cont meds otherwise 2022 Continue Effexor Depakote Lamictal monitor patient for more acute COVID symptoms continue isolation 01/14/2023 Continue plan of care encourage coping strategies reading Increase Depakote 375 mg twice a day Depakote level 40 to encourage CBT strategies continue continue isolation 01/15/23 cont plan of care 01/16/2023 Patient needs much reassurance and support continue medication encourage perspective coping strategies 01/17/2023 Continue plan of care 01/18/2023 Continue to monitor response to need for isolation and recent COVID 01/19/23 Pt seen in f/u mood depressed agitated inc depakote inc zyprexa for mood stability 01/20/2023 Patient seen in follow-up less depressed less labile continue difficulty with isolation 01/21/2023 Patient seen in follow-up gradually improving coping better using more relaxation and cognitive techniques including music 01/22/23 cont plan of care off isolation d/c planning c/o pain r nasal orbital ridge 01/23/2023 CT orbital scan consult Dr. Casarez continue medications otherwise 01/24 reports right periorobital discomfort; added nasal saline drops; discussed with Dr. Mayberry who recs augmentin bid for 7 days if continued discomfort 01/25 continue with comfort medication; primary team to reassess whether not to start antibiotic for acute sinusitis 01/26 continue current tx. 01/27/2023 Continue plan of care discharge planning Reason for contiued inpatient stay Substantial Risk for: inability to function and rapid decompensation Time Spent With Patient Time: Total time managing care of this patient today ____ minutes.
[2023-01-28] MEDS: ALPRAZolam 0.25 MG TABLET PO (03:54)
[2023-01-28 08:30] VITALS: BP 156/73; PULSE 82; RESP 15; TEMP 36.6; O2SAT 95
[2023-01-28] MEDS: amLODIPine Besylate 5 MG TABLET PO (10:44)
[2023-01-28] MEDS: Divalproex Sodium Sprinkles 125 MG CAP.DR.SPR 375 MG PO ×2 (10:45→20:54)
[2023-01-28] MEDS: Sennosides/Docusate Sodium TABLET 2 TAB PO (10:45)
[2023-01-28] MEDS: Tamsulosin HCL 0.4 MG CAPSULE PO (10:45)
[2023-01-28] MEDS: guaiFENesin LA 600 MG TAB.ER.12H PO ×2 (10:45→20:55)
[2023-01-28] MEDS: lamoTRIgine 100 MG TABLET PO ×2 (10:45→20:55)
[2023-01-28] MEDS: OLANZapine 2.5 MG TABLET PO ×2 (10:45→15:19)
[2023-01-28] MEDS: Gabapentin 100 MG CAPSULE PO ×3 (10:45→20:55)
[2023-01-28] MEDS: Venlafaxine HCl ER 75 MG CAP.ER.24H PO (10:46)
[2023-01-28] MEDS: Amoxicillin/Potassium Clav 500 MG TABLET PO ×2 (11:24→21:06)
--- NOTE | 2023-01-28 11:30 | HO.PSYCHPN ---
Subjective Subjective Date of Service: 01/28/23 Reason For Visit: Depression hopelessness irritability Subjective Notes: Conditional Voluntary Interim History: The nursing staff reported the patient is out of COVID-19 precautions and he is on antibiotics due to sinusitis. He was been irritable and angry with peers regarding the TV. He slept well last night. The social service agency director reported that the placement at the senior living had been delayed. On interview the patient denies new symptoms he reports anxiety and depression but able to cope. Mental Status Exam Mental Status Exam Patient Appearance: Well Grooomed and Appropriate Patient Orientation: Person and Situation Level of Consciousness: Awake and Appropriate Patient Behavior: Guarded and Passive Mood Description: Depressed Affect Description: Constricted Patient Cognition Impaired: Yes Ability to Follow Directions: Good Speech Pattern: Clear Hallucinations: None Delusions: Not Present Thought Process: Linear Thought Content: positive for Circumstantial Judgement: Fair Diagnostics Vital Signs (24Hr): Vital Signs - 24 hr 01/27/23 18:00 Temperature 98.0 F Pulse Rate 96 Respiratory Rate 18 Blood Pressure 117/56 L Pulse Oximetry 93 Oxygen Delivery Method Room Air BMI result Body Mass Index 30.2 Labs 11/13/22 07:43 11/12/22 09:32 Imaging Radiology Impressions: ITS Impressions Chest X-Ray 10/20/22 15:45 IMPRESSION: 1. Low lung volumes with bibasilar linear disc atelectasis versus scarring. 2. No airspace consolidation or effusion. Head CT 11/08/22 12:29 IMPRESSION: No acute intracranial hemorrhage or territorial infarction. Stable chronic postoperative changes with gliosis and encephalomalacia in the right frontal and right temporal lobes. Ex vacuo dilatation of the ventricles and diffuse parenchymal volume loss. Right-sided craniotomy changes. Chest X-Ray 11/12/22 10:32 IMPRESSION: Hypoexpanded lungs with bibasilar platelike atelectasis. Brain MRI 11/12/22 13:15 IMPRESSION: 1. No demonstrated acute intracranial abnormalities. 2. Chronic encephalomalacia of the right temporal, right frontal, and left occipital lobes. Small regions of chronic encephalomalacia in the parasagittal aspects of the bilateral parietal lobes. Moderate underlying microangiopathy and generalized cerebral volume loss. Chest X-Ray 11/14/22 15:52 IMPRESSION: Low lung volumes, bibasilar subsegmental atelectasis and slight elevation of the right hemidiaphragm similar to previous exam. Modified Barium Swallow 11/21/22 15:11 IMPRESSION: Laryngeal penetration on several occasions but no laryngeal aspiration. Mild retention of solid food in the valleculae which cleared with subsequent oral administration of water or thin barium. Correlate with speech therapy results. Orbit CT 01/23/23 14:05 IMPRESSION: - No definite significant intraorbital soft tissue findings to assessment is limited on a noncontrast CT of the orbits. No retrobulbar mass lesions and no cellulitic changes appreciated. - There are large fluid levels within the left maxillary sinus and within the right frontal sinus the can be correlated for clinical signs of acute sinusitis. - A peripherally ossified structure extending from the dorsal margin of the right nasolacrimal duct into the right maxillary sinus is stable when compared to examinations dated back to 08/24/2008 favoring a benign etiology. Medications Medications Current Medications Acetaminophen (Acetaminophen 325 Mg Tablet) 1,000 mg PO Q6H PRN PRN Reason: Headache/Pain Mild Scale (1-3) Albuterol Sulfate (Albuterol Sulfate 90 Mcg 8 Gm Inhaler) 2 puff INHALE Q6H PRN PRN Reason: Wheezing Alprazolam (Alprazolam 0.5 Mg Tablet) 0.5 mg PO BEDTIME [facility]Z Last Admin: 01/27/23 21:44 Dose: 0.5 mg Alprazolam (Alprazolam 0.25 Mg Tablet) 0.25 mg PO Q4H PRN PRN Reason: Anxiety Last Admin: 01/28/23 03:54 Dose: 0.25 mg Amlodipine Besylate (Amlodipine Besylate 5 Mg Tablet) 5 mg PO DAILY [facility]; Protocol Last Admin: 01/28/23 10:44 Dose: 5 mg Amoxicillin/Clavulanate Potassium (Amoxicillin/Potassium Clav 500 Mg Tablet) 500 mg PO Q12H [facility] Stop: 02/02/23 23:01 Last Admin: 01/28/23 11:24 Dose: 500 mg Bisacodyl (Bisacodyl 10 Mg Supp.Rect) 10 mg DE DAILY PRN PRN Reason: Constipation Divalproex Sodium (Divalproex Sodium Sprinkles 125 Mg ) 375 mg PO BID [facility] Last Admin: 01/28/23 10:45 Dose: 375 mg Gabapentin (Gabapentin 100 Mg Capsule) 100 mg PO TID [facility] Last Admin: 01/28/23 10:45 Dose: 100 mg Guaifenesin (Guaifenesin La 600 Mg Tab.Er.12h) 600 mg PO BID [facility] Last Admin: 01/28/23 10:45 Dose: 600 mg Hydroxyzine HCl (Hydroxyzine Hcl 50 Mg Tablet) 50 mg PO Q4H PRN PRN Reason: Anxiety Last Admin: 01/26/23 14:12 Dose: 50 mg Lamotrigine (Lamotrigine 100 Mg Tablet) 100 mg PO BID [facility] Last Admin: 01/28/23 10:45 Dose: 100 mg Latanoprost (Latanoprost 0.005 % Ophth No 2.5 Ml Drops) 1 drop EYE-BOTH BEDTIME [facility] Last Admin: 01/27/23 21:44 Dose: 1 drop Multi-Ingred Cream/Lotion/Oil/Oint (Mineral Oil/Petrolatum,White 106 Gm Tube) 1 appl TOPICAL BID PRN; Protocol PRN Reason: dry skin Nortriptyline HCl (Nortriptyline Hcl 25 Mg Capsule) 50 mg PO BEDTIME [facility] Last Admin: 01/27/23 21:43 Dose: 50 mg Olanzapine (Olanzapine 2.5 Mg Tablet) 2.5 mg PO DAILY [facility] Last Admin: 01/28/23 10:45 Dose: 2.5 mg Olanzapine (Olanzapine 2.5 Mg Tablet) 2.5 mg PO DAILY@1500 [facility] Last Admin: 01/27/23 13:52 Dose: 2.5 mg Olanzapine (Olanzapine 5 Mg Tablet) 5 mg PO BEDTIME [facility] Last Admin: 01/27/23 21:44 Dose: 5 mg Ondansetron HCl (Ondansetron Odt 4 Mg Tab.Rapdis) 4 mg TRANSLINGU Q6H PRN PRN Reason: Nausea and Vomiting Last Admin: 01/11/23 08:34 Dose: 4 mg Phenylephrine HCl (Phenylephrine Hcl 0.5 % Nasal 15 Ml Sprbtl) 2 spray NOSTRIL-B Q4H PRN PRN Reason: sinus pressure/pain Stop: 01/29/23 15:05 Last Admin: 01/27/23 16:08 Dose: 2 spray Polyethylene Glycol (Polyethylene Glycol 3350 17 Gm Powd.Pack) 17 gm PO BID [facility] Last Admin: 01/28/23 10:46 Dose: Not Given Senna/Docusate Sodium (Sennosides/Docusate Sodium Tablet) 2 tab PO BID [facility] Last Admin: 01/28/23 10:45 Dose: 2 tab Sodium Biphosphate/Sodium Phosphate (Sodium Phosphate,Banks-Dibasic 133 Ml Enema) 133 ml DE ONCE PRN PRN Reason: Constipation Tamsulosin HCl (Tamsulosin Hcl 0.4 Mg Capsule) 0.4 mg PO DAILY [facility] Last Admin: 01/28/23 10:45 Dose: 0.4 mg Trazodone HCl (Trazodone Hcl 100 Mg Tablet) 200 mg PO BEDTIME [facility] Last Admin: 01/27/23 21:43 Dose: 200 mg Venlafaxine HCl (Venlafaxine Hcl Er 75 Mg Cap.Er.24h) 75 mg PO DAILY [facility] Last Admin: 01/28/23 10:46 Dose: 75 mg Allergies Allergies Allergy/AdvReac Type Severity Reaction Status Date / Time fentanyl [FENTANYL] Allergy Intermediate unknown Verified 04/08/22 07:00 Assessment & Plan Assessment & Plan (1) Major depressive disorder, recurrent severe without psychotic features: Status: Acute Code(s): F33.2 - Major depressive disorder, recurrent severe without psychotic features (2) Cognitive and neurobehavioral dysfunction following brain injury: Status: Acute Code(s): G31.89 - Other specified degenerative diseases of nervous system; F09 - Unspecified mental disorder due to known physiological condition; S06.9X9S - Unspecified intracranial injury with loss of consciousness of unspecified duration, sequela (3) Swallowing dysfunction: Status: Acute Code(s): R13.10 - Dysphagia, unspecified (4) Personality disorder in adult: Status: Acute Code(s): F60.9 - Personality disorder, unspecified Plan Patient seems minimally less labile with olanzapine during the day and alprazolam to decrease irritability reactivity monitor for over sedation continue discharge planning Encourage daily strength training lower Effexor to 75 mg in case it is overly stimulating the patient to increased reactivity Start Depakote 125 mg twice a day will start gradually for mood instability 01/05: Continue current plans and regimen 01/06/2023 Patient feels better on Depakote increase Depakote to 125 t.i.d. lower Lamictal 01/07/2023 Increase Depakote to 250 b.i.d. secondary to anxiety reviewed cognitive behavioral strategies 01/08/23 pt seems improved with depakote cont plan of care 01/09/23 Pt seen in f/u mood improved encourage inc perspective cbt skills 01/11: Continue tx plan. 01/12/23 Monitor medical safety ck o 2 isolation cont meds otherwise 2022 Continue Effexor Depakote Lamictal monitor patient for more acute COVID symptoms continue isolation 01/14/2023 Continue plan of care encourage coping strategies reading Increase Depakote 375 mg twice a day Depakote level 40 to encourage CBT strategies continue continue isolation 01/15/23 cont plan of care 01/16/2023 Patient needs much reassurance and support continue medication encourage perspective coping strategies 01/17/2023 Continue plan of care 01/18/2023 Continue to monitor response to need for isolation and recent COVID 01/19/23 Pt seen in f/u mood depressed agitated inc depakote inc zyprexa for mood stability 01/20/2023 Patient seen in follow-up less depressed less labile continue difficulty with isolation 01/21/2023 Patient seen in follow-up gradually improving coping better using more relaxation and cognitive techniques including music 01/22/23 cont plan of care off isolation d/c planning c/o pain r nasal orbital ridge 01/23/2023 CT orbital scan consult Dr. Casarez continue medications otherwise 01/24 reports right periorobital discomfort; added nasal saline drops; discussed with Dr. Mayberry who recs augmentin bid for 7 days if continued discomfort 01/25 continue with comfort medication; primary team to reassess whether not to start antibiotic for acute sinusitis 01/26 continue current tx. 01/27/2023 Continue plan of care discharge planning. 01/28 Continue with same treatment Reason for contiued inpatient stay Substantial Risk for: inability to function, rapid decompensation and med/psych decompensation Time Spent With Patient Time: Total time managing care of this patient today __20__ minutes.
[2023-01-28 18:00] VITALS: BP 119/64; PULSE 75; RESP 18; TEMP 36.7; O2SAT 96
[2023-01-28] MEDS: Acetaminophen 325 MG TABLET 1000 MG PO (20:52)
[2023-01-28] MEDS: traZODone HCL 100 MG TABLET 200 MG PO (20:53)
[2023-01-28] MEDS: OLANZapine 5 MG TABLET PO (20:55)
[2023-01-28] MEDS: Nortriptyline HCl 25 MG CAPSULE 50 MG PO (20:55)
[2023-01-28] MEDS: Latanoprost 0.005 % Ophth Sol 2.5 ML DROPS 1 DROP EYE-BOTH (20:55)
[2023-01-28] MEDS: ALPRAZolam 0.5 MG TABLET PO (20:55)
[2023-01-28] MEDS: Phenylephrine HCl 0.5 % Nasal 15 ML SPRBTL 2 SPRAY NOSTRIL-B (21:05)
[2023-01-29 09:30] VITALS: BP 136/69; PULSE 84; RESP 15; TEMP 36.2; O2SAT 95
[2023-01-29] MEDS: guaiFENesin LA 600 MG TAB.ER.12H PO ×2 (11:02→21:18)
[2023-01-29] MEDS: Sennosides/Docusate Sodium TABLET 2 TAB PO ×2 (11:02→21:16)
[2023-01-29] MEDS: Gabapentin 100 MG CAPSULE PO ×3 (11:02→21:17)
[2023-01-29] MEDS: amLODIPine Besylate 5 MG TABLET PO (11:03)
[2023-01-29] MEDS: Tamsulosin HCL 0.4 MG CAPSULE PO (11:03)
[2023-01-29] MEDS: OLANZapine 2.5 MG TABLET PO ×2 (11:03→14:56)
[2023-01-29] MEDS: lamoTRIgine 100 MG TABLET PO ×2 (11:03→21:17)
[2023-01-29] MEDS: Divalproex Sodium Sprinkles 125 MG CAP.DR.SPR 375 MG PO ×2 (11:03→21:17)
[2023-01-29] MEDS: Venlafaxine HCl ER 75 MG CAP.ER.24H PO (11:03)
[2023-01-29] MEDS: Amoxicillin/Potassium Clav 500 MG TABLET PO ×2 (11:15→21:17)
[2023-01-29] MEDS: Acetaminophen 325 MG TABLET 1000 MG PO ×2 (11:15→21:16)
[2023-01-29 18:00] VITALS: BP 131/77; PULSE 72; RESP 16; TEMP 36.4; O2SAT 98
[2023-01-29] MEDS: traZODone HCL 100 MG TABLET 200 MG PO (21:17)
[2023-01-29] MEDS: Nortriptyline HCl 25 MG CAPSULE 50 MG PO (21:17)
[2023-01-29] MEDS: OLANZapine 5 MG TABLET PO (21:18)
[2023-01-29] MEDS: Latanoprost 0.005 % Ophth Sol 2.5 ML DROPS 1 DROP EYE-BOTH (21:18)
[2023-01-29] MEDS: ALPRAZolam 0.5 MG TABLET PO (21:26)
--- NOTE | 2023-01-29 21:36 | P.PNPSI_ITS ---
Subjective Subjective Date of Service: 01/29/23 Reason For Visit: Depression hopelessness irritability Subjective Notes: Conditional Voluntary Interim History: Patient complains of ongoing sinus symptoms somewhat anxious and ruminating but generally more stable Medication Compliance: Yes Mental Status Exam Mental Status Exam Patient Appearance: Well Grooomed and Appropriate Patient Orientation: Person and Situation Level of Consciousness: Awake and Appropriate Patient Behavior: Guarded and Passive Mood Description: Depressed Affect Description: Constricted Patient Cognition Impaired: Yes Ability to Follow Directions: Good Speech Pattern: Clear Hallucinations: None Delusions: Not Present Thought Process: Linear Thought Content: positive for Circumstantial Judgement: Fair Diagnostics Vital Signs (24Hr): Vital Signs - 24 hr 01/29/23 09:30 01/29/23 18:00 Temperature 97.2 F 97.6 F Pulse Rate 84 72 Respiratory Rate 15 16 Blood Pressure 136/69 131/77 Pulse Oximetry 95 98 Oxygen Delivery Method Room Air Room Air BMI result Body Mass Index 30.2 Labs 11/13/22 07:43 11/12/22 09:32 Imaging Radiology Impressions: ITS Impressions Chest X-Ray 10/20/22 15:45 IMPRESSION: 1. Low lung volumes with bibasilar linear disc atelectasis versus scarring. 2. No airspace consolidation or effusion. Head CT 11/08/22 12:29 IMPRESSION: No acute intracranial hemorrhage or territorial infarction. Stable chronic postoperative changes with gliosis and encephalomalacia in the right frontal and right temporal lobes. Ex vacuo dilatation of the ventricles and diffuse parenchymal volume loss. Right-sided craniotomy changes. Chest X-Ray 11/12/22 10:32 IMPRESSION: Hypoexpanded lungs with bibasilar platelike atelectasis. Brain MRI 11/12/22 13:15 IMPRESSION: 1. No demonstrated acute intracranial abnormalities. 2. Chronic encephalomalacia of the right temporal, right frontal, and left occipital lobes. Small regions of chronic encephalomalacia in the parasagittal aspects of the bilateral parietal lobes. Moderate underlying microangiopathy and generalized cerebral volume loss. Chest X-Ray 11/14/22 15:52 IMPRESSION: Low lung volumes, bibasilar subsegmental atelectasis and slight elevation of the right hemidiaphragm similar to previous exam. Modified Barium Swallow 11/21/22 15:11 IMPRESSION: Laryngeal penetration on several occasions but no laryngeal aspiration. Mild retention of solid food in the valleculae which cleared with subsequent oral administration of water or thin barium. Correlate with speech therapy results. Orbit CT 01/23/23 14:05 IMPRESSION: - No definite significant intraorbital soft tissue findings to assessment is limited on a noncontrast CT of the orbits. No retrobulbar mass lesions and no cellulitic changes appreciated. - There are large fluid levels within the left maxillary sinus and within the right frontal sinus the can be correlated for clinical signs of acute sinusitis. - A peripherally ossified structure extending from the dorsal margin of the right nasolacrimal duct into the right maxillary sinus is stable when compared to examinations dated back to 08/24/2008 favoring a benign etiology. Medications Medications Current Medications Acetaminophen (Acetaminophen 325 Mg Tablet) 1,000 mg PO Q6H PRN PRN Reason: Headache/Pain Mild Scale (1-3) Last Admin: 01/29/23 21:16 Dose: 1,000 mg Albuterol Sulfate (Albuterol Sulfate 90 Mcg 8 Gm Inhaler) 2 puff INHALE Q6H PRN PRN Reason: Wheezing Alprazolam (Alprazolam 0.5 Mg Tablet) 0.5 mg PO BEDTIME [facility] Last Admin: 01/29/23 21:26 Dose: 0.5 mg Alprazolam (Alprazolam 0.25 Mg Tablet) 0.25 mg PO Q4H PRN PRN Reason: Anxiety Last Admin: 01/28/23 03:54 Dose: 0.25 mg Amlodipine Besylate (Amlodipine Besylate 5 Mg Tablet) 5 mg PO DAILY [facility]; Protocol Last Admin: 01/29/23 11:03 Dose: 5 mg Amoxicillin/Clavulanate Potassium (Amoxicillin/Potassium Clav 500 Mg Tablet) 500 mg PO Q12H [facility] Stop: 02/02/23 23:01 Last Admin: 01/29/23 21:17 Dose: 500 mg Bisacodyl (Bisacodyl 10 Mg Supp.Rect) 10 mg MS DAILY PRN PRN Reason: Constipation Divalproex Sodium (Divalproex Sodium Sprinkles 125 Mg ) 375 mg PO BID [facility] Last Admin: 01/29/23 21:17 Dose: 375 mg Gabapentin (Gabapentin 100 Mg Capsule) 100 mg PO TID [facility] Last Admin: 01/29/23 21:17 Dose: 100 mg Guaifenesin (Guaifenesin La 600 Mg Tab.Er.12h) 600 mg PO BID [facility] Last Admin: 01/29/23 21:18 Dose: 600 mg Hydroxyzine HCl (Hydroxyzine Hcl 50 Mg Tablet) 50 mg PO Q4H PRN PRN Reason: Anxiety Last Admin: 01/26/23 14:12 Dose: 50 mg Lamotrigine (Lamotrigine 100 Mg Tablet) 100 mg PO BID [facility] Last Admin: 01/29/23 21:17 Dose: 100 mg Latanoprost (Latanoprost 0.005 % Ophth No 2.5 Ml Drops) 1 drop EYE-BOTH BEDTIME [facility] Last Admin: 01/29/23 21:18 Dose: 1 drop Multi-Ingred Cream/Lotion/Oil/Oint (Mineral Oil/Petrolatum,White 106 Gm Tube) 1 appl TOPICAL BID PRN; Protocol PRN Reason: dry skin Nortriptyline HCl (Nortriptyline Hcl 25 Mg Capsule) 50 mg PO BEDTIME [facility] Last Admin: 01/29/23 21:17 Dose: 50 mg Olanzapine (Olanzapine 2.5 Mg Tablet) 2.5 mg PO DAILY [facility] Last Admin: 01/29/23 11:03 Dose: 2.5 mg Olanzapine (Olanzapine 2.5 Mg Tablet) 2.5 mg PO DAILY@1500 [facility] Last Admin: 01/29/23 14:56 Dose: 2.5 mg Olanzapine (Olanzapine 5 Mg Tablet) 5 mg PO BEDTIME [facility] Last Admin: 01/29/23 21:18 Dose: 5 mg Ondansetron HCl (Ondansetron Odt 4 Mg Tab.Rapdis) 4 mg TRANSLINGU Q6H PRN PRN Reason: Nausea and Vomiting Last Admin: 01/11/23 08:34 Dose: 4 mg Polyethylene Glycol (Polyethylene Glycol 3350 17 Gm Powd.Pack) 17 gm PO BID [facility] Last Admin: 01/29/23 11:03 Dose: Not Given Senna/Docusate Sodium (Sennosides/Docusate Sodium Tablet) 2 tab PO BID [facility] Last Admin: 01/29/23 21:16 Dose: 2 tab Sodium Biphosphate/Sodium Phosphate (Sodium Phosphate,[place]mmons-Dibasic 133 Ml Enema) 133 ml MS ONCE PRN PRN Reason: Constipation Tamsulosin HCl (Tamsulosin Hcl 0.4 Mg Capsule) 0.4 mg PO DAILY [facility] Last Admin: 01/29/23 11:03 Dose: 0.4 mg Trazodone HCl (Trazodone Hcl 100 Mg Tablet) 200 mg PO BEDTIME [facility] Last Admin: 01/29/23 21:17 Dose: 200 mg Venlafaxine HCl (Venlafaxine Hcl Er 75 Mg Cap.Er.24h) 75 mg PO DAILY [facility] Last Admin: 01/29/23 11:03 Dose: 75 mg Allergies Allergies Allergy/AdvReac Type Severity Reaction Status Date / Time fentanyl [FENTANYL] Allergy Intermediate unknown Verified 04/08/22 07:00 Assessment & Plan Assessment & Plan (1) Major depressive disorder, recurrent severe without psychotic features: Status: Acute Code(s): F33.2 - Major depressive disorder, recurrent severe without psychotic features (2) Cognitive and neurobehavioral dysfunction following brain injury: Status: Acute Code(s): G31.89 - Other specified degenerative diseases of nervous system; F09 - Unspecified mental disorder due to known physiological condition; S06.9X9S - Unspecified intracranial injury with loss of consciousness of unspecified duration, sequela (3) Swallowing dysfunction: Status: Acute Code(s): R13.10 - Dysphagia, unspecified (4) Personality disorder in adult: Status: Acute Code(s): F60.9 - Personality disorder, unspecified Plan Patient seems minimally less labile with olanzapine during the day and alprazolam to decrease irritability reactivity monitor for over sedation continue discharge planning Encourage daily strength training lower Effexor to 75 mg in case it is overly stimulating the patient to increased reactivity Start Depakote 125 mg twice a day will start gradually for mood instability 01/05: Continue current plans and regimen 01/06/2023 Patient feels better on Depakote increase Depakote to 125 t.i.d. lower Lamictal 01/07/2023 Increase Depakote to 250 b.i.d. secondary to anxiety reviewed cognitive behavioral strategies 01/08/23 pt seems improved with depakote cont plan of care 01/09/23 Pt seen in f/u mood improved encourage inc perspective cbt skills 01/11: Continue tx plan. 01/12/23 Monitor medical safety ck o 2 isolation cont meds otherwise 2022 Continue Effexor Depakote Lamictal monitor patient for more acute COVID symptoms continue isolation 01/14/2023 Continue plan of care encourage coping strategies reading Increase Depakote 375 mg twice a day Depakote level 40 to encourage CBT strategies continue continue isolation 01/15/23 cont plan of care 01/16/2023 Patient needs much reassurance and support continue medication encourage perspective coping strategies 01/17/2023 Continue plan of care 01/18/2023 Continue to monitor response to need for isolation and recent COVID 01/19/23 Pt seen in f/u mood depressed agitated inc depakote inc zyprexa for mood stability 01/20/2023 Patient seen in follow-up less depressed less labile continue difficulty with isolation 01/21/2023 Patient seen in follow-up gradually improving coping better using more relaxation and cognitive techniques including music 01/22/23 cont plan of care off isolation d/c planning c/o pain r nasal orbital ridge 01/23/2023 CT orbital scan consult Dr. Casarez continue medications otherwise 01/24 reports right periorobital discomfort; added nasal saline drops; discussed with Dr. Mayberry who recs augmentin bid for 7 days if continued discomfort 01/25 continue with comfort medication; primary team to reassess whether not to start antibiotic for acute sinusitis 01/26 continue current tx. 01/27/2023 Continue plan of care discharge planning. 01/28 Continue with same treatment 01/29/2023 Continue plan of care start nasal steroid for sinusitis drainage pre consult medicine if needed Saline nasal spray p.r.n. Reason for contiued inpatient stay Substantial Risk for: rapid decompensation and med/psych decompensation Time Spent With Patient Time: Total time managing care of this patient today ____ minutes.
[2023-01-30 07:30] VITALS: BP 137/81; PULSE 75; RESP 15; TEMP 36.2; O2SAT 95
[2023-01-30] MEDS: Gabapentin 100 MG CAPSULE PO ×3 (09:10→21:28)
[2023-01-30] MEDS: guaiFENesin LA 600 MG TAB.ER.12H PO ×2 (09:10→21:28)
[2023-01-30] MEDS: OLANZapine 2.5 MG TABLET PO ×2 (09:11→14:58)
[2023-01-30] MEDS: Divalproex Sodium Sprinkles 125 MG CAP.DR.SPR 375 MG PO ×2 (09:11→21:29)
[2023-01-30] MEDS: Tamsulosin HCL 0.4 MG CAPSULE PO (09:11)
[2023-01-30] MEDS: Venlafaxine HCl ER 75 MG CAP.ER.24H PO (09:11)
[2023-01-30] MEDS: amLODIPine Besylate 5 MG TABLET PO (09:11)
[2023-01-30] MEDS: lamoTRIgine 100 MG TABLET PO ×2 (09:11→21:32)
[2023-01-30] MEDS: Fluticasone Propionate Nasal 16 GM SPRAY 1 SPRAY NOSTRIL-B ×2 (09:17→21:29)
[2023-01-30] MEDS: Amoxicillin/Potassium Clav 500 MG TABLET PO ×2 (11:49→21:29)
--- NOTE | 2023-01-30 13:44 | HO.PSYCHPN ---
Subjective Subjective Date of Service: 01/30/23 Reason For Visit: Depression hopelessness irritability Subjective Notes: Conditional Voluntary Interim History: The nursing staff reported the patient had been compliant with treatment, he was incontinent of urine last night. On interview the patient denies new symptoms, we [facility]. Mental Status Exam Mental Status Exam Patient Appearance: Well Grooomed and Appropriate Patient Orientation: Person and Situation Level of Consciousness: Awake and Appropriate Patient Behavior: Cooperative Mood Description: Calm Affect Description: Constricted Patient Cognition Impaired: Yes Ability to Follow Directions: Good Speech Pattern: Clear Hallucinations: None Delusions: Not Present Thought Content: positive for Linear Judgement: Fair Diagnostics Vital Signs (24Hr): Vital Signs - 24 hr 01/29/23 18:00 01/30/23 07:30 Temperature 97.6 F 97.1 F Pulse Rate 72 75 Respiratory Rate 16 15 Blood Pressure 131/77 137/81 Pulse Oximetry 98 95 Oxygen Delivery Method Room Air Room Air BMI result Body Mass Index 30.2 Labs 11/13/22 07:43 11/12/22 09:32 Imaging Radiology Impressions: ITS Impressions Chest X-Ray 10/20/22 15:45 IMPRESSION: 1. Low lung volumes with bibasilar linear disc atelectasis versus scarring. 2. No airspace consolidation or effusion. Head CT 11/08/22 12:29 IMPRESSION: No acute intracranial hemorrhage or territorial infarction. Stable chronic postoperative changes with gliosis and encephalomalacia in the right frontal and right temporal lobes. Ex vacuo dilatation of the ventricles and diffuse parenchymal volume loss. Right-sided craniotomy changes. Chest X-Ray 11/12/22 10:32 IMPRESSION: Hypoexpanded lungs with bibasilar platelike atelectasis. Brain MRI 11/12/22 13:15 IMPRESSION: 1. No demonstrated acute intracranial abnormalities. 2. Chronic encephalomalacia of the right temporal, right frontal, and left occipital lobes. Small regions of chronic encephalomalacia in the parasagittal aspects of the bilateral parietal lobes. Moderate underlying microangiopathy and generalized cerebral volume loss. Chest X-Ray 11/14/22 15:52 IMPRESSION: Low lung volumes, bibasilar subsegmental atelectasis and slight elevation of the right hemidiaphragm similar to previous exam. Modified Barium Swallow 11/21/22 15:11 IMPRESSION: Laryngeal penetration on several occasions but no laryngeal aspiration. Mild retention of solid food in the valleculae which cleared with subsequent oral administration of water or thin barium. Correlate with speech therapy results. Orbit CT 01/23/23 14:05 IMPRESSION: - No definite significant intraorbital soft tissue findings to assessment is limited on a noncontrast CT of the orbits. No retrobulbar mass lesions and no cellulitic changes appreciated. - There are large fluid levels within the left maxillary sinus and within the right frontal sinus the can be correlated for clinical signs of acute sinusitis. - A peripherally ossified structure extending from the dorsal margin of the right nasolacrimal duct into the right maxillary sinus is stable when compared to examinations dated back to 08/24/2008 favoring a benign etiology. Medications Medications Current Medications Acetaminophen (Acetaminophen 325 Mg Tablet) 1,000 mg PO Q6H PRN PRN Reason: Headache/Pain Mild Scale (1-3) Last Admin: 01/29/23 21:16 Dose: 1,000 mg Albuterol Sulfate (Albuterol Sulfate 90 Mcg 8 Gm Inhaler) 2 puff INHALE Q6H PRN PRN Reason: Wheezing Alprazolam (Alprazolam 0.5 Mg Tablet) 0.5 mg PO BEDTIME [facility] Last Admin: 01/29/23 21:26 Dose: 0.5 mg Alprazolam (Alprazolam 0.25 Mg Tablet) 0.25 mg PO Q4H PRN PRN Reason: Anxiety Last Admin: 01/28/23 03:54 Dose: 0.25 mg Amlodipine Besylate (Amlodipine Besylate 5 Mg Tablet) 5 mg PO DAILY [facility]; Protocol Last Admin: 01/30/23 09:11 Dose: 5 mg Amoxicillin/Clavulanate Potassium (Amoxicillin/Potassium Clav 500 Mg Tablet) 500 mg PO Q12H [facility] Stop: 02/02/23 23:01 Last Admin: 01/30/23 11:49 Dose: 500 mg Bisacodyl (Bisacodyl 10 Mg Supp.Rect) 10 mg [place] DAILY PRN PRN Reason: Constipation Divalproex Sodium (Divalproex Sodium Sprinkles 125 Mg [place].) 375 mg PO BID [facility] Last Admin: 01/30/23 09:11 Dose: 375 mg Fluticasone Propionate (Fluticasone Propionate Nasal 16 Gm [place]) 1 spray NOSTRIL-B BID [facility] Last Admin: 01/30/23 09:17 Dose: 1 spray Gabapentin (Gabapentin 100 Mg Capsule) 100 mg PO TID [facility] Last Admin: 01/30/23 09:10 Dose: 100 mg Guaifenesin (Guaifenesin La 600 Mg Tab.Er.12h) 600 mg PO BID [facility] Last Admin: 01/30/23 09:10 Dose: 600 mg Hydroxyzine HCl (Hydroxyzine Hcl 50 Mg Tablet) 50 mg PO Q4H PRN PRN Reason: Anxiety Last Admin: 01/26/23 14:12 Dose: 50 mg Lamotrigine (Lamotrigine 100 Mg Tablet) 100 mg PO BID [facility] Last Admin: 01/30/23 09:11 Dose: 100 mg Latanoprost (Latanoprost 0.005 % Ophth No 2.5 Ml Drops) 1 drop EYE-BOTH BEDTIME [facility] Last Admin: 01/29/23 21:18 Dose: 1 drop Lidocaine (Lidocaine 4 % Patch Adh..Patch) 1 patch TRANSDERMA DAILY [facility]; Protocol Last Admin: 01/30/23 09:12 Dose: Not Given Multi-Ingred Cream/Lotion/Oil/Oint (Mineral Oil/Petrolatum,White 106 Gm Tube) 1 appl TOPICAL BID PRN; Protocol PRN Reason: dry skin Nortriptyline HCl (Nortriptyline Hcl 25 Mg Capsule) 50 mg PO BEDTIME [facility] Last Admin: 01/29/23 21:17 Dose: 50 mg Olanzapine (Olanzapine 2.5 Mg Tablet) 2.5 mg PO DAILY [facility] Last Admin: 01/30/23 09:11 Dose: 2.5 mg Olanzapine (Olanzapine 2.5 Mg Tablet) 2.5 mg PO DAILY@1500 [facility] Last Admin: 01/29/23 14:56 Dose: 2.5 mg Olanzapine (Olanzapine 5 Mg Tablet) 5 mg PO BEDTIME [facility] Last Admin: 01/29/23 21:18 Dose: 5 mg Ondansetron HCl (Ondansetron Odt 4 Mg Tab.Rapdis) 4 mg TRANSLINGU Q6H PRN PRN Reason: Nausea and Vomiting Last Admin: 01/11/23 08:34 Dose: 4 mg Polyethylene Glycol (Polyethylene Glycol 3350 17 Gm Powd.Pack) 17 gm PO BID [facility] Last Admin: 01/30/23 09:12 Dose: Not Given Senna/Docusate Sodium (Sennosides/Docusate Sodium Tablet) 2 tab PO BID [facility] Last Admin: 01/30/23 09:12 Dose: Not Given Sodium Biphosphate/Sodium Phosphate (Sodium Phosphate,[place]-Dibasic 133 Ml Enema) 133 ml [place] ONCE PRN PRN Reason: Constipation Sodium Chloride (Sodium Chloride 0.65 % Nasal 44 Ml Sprbtl) 1 spray NOSTRIL-B Q1H PRN PRN Reason: Nasal Congestion Tamsulosin HCl (Tamsulosin Hcl 0.4 Mg Capsule) 0.4 mg PO DAILY [facility] Last Admin: 01/30/23 09:11 Dose: 0.4 mg Trazodone HCl (Trazodone Hcl 100 Mg Tablet) 200 mg PO BEDTIME [facility] Last Admin: 01/29/23 21:17 Dose: 200 mg Venlafaxine HCl (Venlafaxine Hcl Er 75 Mg Cap.Er.24h) 75 mg PO DAILY [facility] Last Admin: 01/30/23 09:11 Dose: 75 mg Allergies Allergies Allergy/AdvReac Type Severity Reaction Status Date / Time fentanyl [FENTANYL] Allergy Intermediate unknown Verified 04/08/22 07:00 Assessment & Plan Assessment & Plan (1) Major depressive disorder, recurrent severe without psychotic features: Status: Acute Code(s): F33.2 - Major depressive disorder, recurrent severe without psychotic features (2) Cognitive and neurobehavioral dysfunction following brain injury: Status: Acute Code(s): G31.89 - Other specified degenerative diseases of nervous system; F09 - Unspecified mental disorder due to known physiological condition; S06.9X9S - Unspecified intracranial injury with loss of consciousness of unspecified duration, sequela (3) Swallowing dysfunction: Status: Acute Code(s): R13.10 - Dysphagia, unspecified (4) Personality disorder in adult: Status: Acute Code(s): F60.9 - Personality disorder, unspecified Plan Patient seems minimally less labile with olanzapine during the day and alprazolam to decrease irritability reactivity monitor for over sedation continue discharge planning Encourage daily strength training lower Effexor to 75 mg in case it is overly stimulating the patient to increased reactivity Start Depakote 125 mg twice a day will start gradually for mood instability 01/05: Continue current plans and regimen 01/06/2023 Patient feels better on Depakote increase Depakote to 125 t.i.d. lower Lamictal 01/07/2023 Increase Depakote to 250 b.i.d. secondary to anxiety reviewed cognitive behavioral strategies 01/08/23 pt seems improved with depakote cont plan of care 01/09/23 Pt seen in f/u mood improved encourage inc perspective cbt skills 01/11: Continue tx plan. 01/12/23 Monitor medical safety ck o 2 isolation cont meds otherwise 2022 Continue Effexor Depakote Lamictal monitor patient for more acute COVID symptoms continue isolation 01/14/2023 Continue plan of care encourage coping strategies reading Increase Depakote 375 mg twice a day Depakote level 40 to encourage CBT strategies continue continue isolation 01/15/23 cont plan of care 01/16/2023 Patient needs much reassurance and support continue medication encourage perspective coping strategies 01/17/2023 Continue plan of care 01/18/2023 Continue to monitor response to need for isolation and recent COVID 01/19/23 Pt seen in f/u mood depressed agitated inc depakote inc zyprexa for mood stability 01/20/2023 Patient seen in follow-up less depressed less labile continue difficulty with isolation 01/21/2023 Patient seen in follow-up gradually improving coping better using more relaxation and cognitive techniques including music 01/22/23 cont plan of care off isolation d/c planning c/o pain r nasal orbital ridge 01/23/2023 CT orbital scan consult Dr. Casarez continue medications otherwise 01/24 reports right periorobital discomfort; added nasal saline drops; discussed with Dr. Mayberry who recs augmentin bid for 7 days if continued discomfort 01/25 continue with comfort medication; primary team to reassess whether not to start antibiotic for acute sinusitis 01/26 continue current tx. 01/27/2023 Continue plan of care discharge planning. 01/28 Continue with same treatment 01/29/2023 Continue plan of care start nasal steroid for sinusitis drainage pre consult medicine if needed Saline nasal spray p.r.n. 01/30 continue with same treatment Reason for contiued inpatient stay Substantial Risk for: inability to function, rapid decompensation and med/psych decompensation Time Spent With Patient Time: Total time managing care of this patient today __20__ minutes.
[2023-01-30] MEDS: Lidocaine 5 % Ointment 35 GM 1 APPL TOPICAL ×2 (15:59→21:59)
[2023-01-30] MEDS: Acetaminophen 325 MG TABLET 1000 MG PO (16:51)
[2023-01-30 19:45] VITALS: BP 142/69; PULSE 75; RESP 18; TEMP 36.2; O2SAT 95
[2023-01-30] MEDS: Ibuprofen 600 MG TABLET PO (21:28)
[2023-01-30] MEDS: Nortriptyline HCl 25 MG CAPSULE 50 MG PO (21:29)
[2023-01-30] MEDS: OLANZapine 5 MG TABLET PO (21:29)
[2023-01-30] MEDS: Latanoprost 0.005 % Ophth Sol 2.5 ML DROPS 1 DROP EYE-BOTH (21:29)
[2023-01-30] MEDS: ALPRAZolam 0.5 MG TABLET PO (21:29)
[2023-01-30] MEDS: traZODone HCL 100 MG TABLET 200 MG PO (21:32)
--- NOTE | 2023-01-31 08:51 | HO.PSYCHPN ---
Subjective Subjective Date of Service: 01/31/23 Reason For Visit: Depression hopelessness irritability Subjective Notes: Conditional Voluntary Interim History: The nursing staff reported the patient slept well all night, he needed to change Tylenol to ibuprofen for signs pain. On interview the patient denies new symptoms, waiting for placement. Mental Status Exam Mental Status Exam Patient Appearance: Well Grooomed and Appropriate Patient Orientation: Person, Place, Time and Situation Level of Consciousness: Awake and Appropriate Patient Behavior: Guarded and Passive Mood Description: Withdrawn Affect Description: Constricted Ability to Follow Directions: Good Speech Pattern: Clear Hallucinations: None Delusions: Not Present Thought Process: Linear Thought Content: positive for Circumstantial Judgement: Fair Diagnostics Vital Signs (24Hr): Vital Signs - 24 hr 01/30/23 19:45 Temperature 97.2 F Pulse Rate 75 Respiratory Rate 18 Blood Pressure 142/69 H Pulse Oximetry 95 Oxygen Delivery Method Room Air BMI result Body Mass Index 30.2 Labs 11/13/22 07:43 11/12/22 09:32 Imaging Radiology Impressions: ITS Impressions Chest X-Ray 10/20/22 15:45 IMPRESSION: 1. Low lung volumes with bibasilar linear disc atelectasis versus scarring. 2. No airspace consolidation or effusion. Head CT 11/08/22 12:29 IMPRESSION: No acute intracranial hemorrhage or territorial infarction. Stable chronic postoperative changes with gliosis and encephalomalacia in the right frontal and right temporal lobes. Ex vacuo dilatation of the ventricles and diffuse parenchymal volume loss. Right-sided craniotomy changes. Chest X-Ray 11/12/22 10:32 IMPRESSION: Hypoexpanded lungs with bibasilar platelike atelectasis. Brain MRI 11/12/22 13:15 IMPRESSION: 1. No demonstrated acute intracranial abnormalities. 2. Chronic encephalomalacia of the right temporal, right frontal, and left occipital lobes. Small regions of chronic encephalomalacia in the parasagittal aspects of the bilateral parietal lobes. Moderate underlying microangiopathy and generalized cerebral volume loss. Chest X-Ray 11/14/22 15:52 IMPRESSION: Low lung volumes, bibasilar subsegmental atelectasis and slight elevation of the right hemidiaphragm similar to previous exam. Modified Barium Swallow 11/21/22 15:11 IMPRESSION: Laryngeal penetration on several occasions but no laryngeal aspiration. Mild retention of solid food in the valleculae which cleared with subsequent oral administration of water or thin barium. Correlate with speech therapy results. Orbit CT 01/23/23 14:05 IMPRESSION: - No definite significant intraorbital soft tissue findings to assessment is limited on a noncontrast CT of the orbits. No retrobulbar mass lesions and no cellulitic changes appreciated. - There are large fluid levels within the left maxillary sinus and within the right frontal sinus the can be correlated for clinical signs of acute sinusitis. - A peripherally ossified structure extending from the dorsal margin of the right nasolacrimal duct into the right maxillary sinus is stable when compared to examinations dated back to 08/24/2008 favoring a benign etiology. Medications Medications Current Medications Acetaminophen (Acetaminophen 325 Mg Tablet) 1,000 mg PO Q6H PRN PRN Reason: Headache/Pain Mild Scale (1-3) Last Admin: 01/30/23 16:51 Dose: 1,000 mg Albuterol Sulfate (Albuterol Sulfate 90 Mcg 8 Gm Inhaler) 2 puff INHALE Q6H PRN PRN Reason: Wheezing Alprazolam (Alprazolam 0.5 Mg Tablet) 0.5 mg PO BEDTIME [facility] Last Admin: 01/30/23 21:29 Dose: 0.5 mg Alprazolam (Alprazolam 0.25 Mg Tablet) 0.25 mg PO Q4H PRN PRN Reason: Anxiety Last Admin: 01/28/23 03:54 Dose: 0.25 mg Amlodipine Besylate (Amlodipine Besylate 5 Mg Tablet) 5 mg PO DAILY [facility]; Protocol Last Admin: 01/30/23 09:11 Dose: 5 mg Amoxicillin/Clavulanate Potassium (Amoxicillin/Potassium Clav 500 Mg Tablet) 500 mg PO Q12H [facility] Stop: 02/02/23 23:01 Last Admin: 01/30/23 21:29 Dose: 500 mg Bisacodyl (Bisacodyl 10 Mg Supp.Rect) 10 mg [place] DAILY PRN PRN Reason: Constipation Divalproex Sodium (Divalproex Sodium Sprinkles 125 Mg ) 375 mg PO BID [facility] Last Admin: 01/30/23 21:29 Dose: 375 mg Fluticasone Propionate (Fluticasone Propionate Nasal 16 Gm [place]) 1 spray NOSTRIL-B BID [facility] Last Admin: 01/30/23 21:29 Dose: 1 spray Gabapentin (Gabapentin 100 Mg Capsule) 100 mg PO TID [facility] Last Admin: 01/30/23 21:28 Dose: 100 mg Guaifenesin (Guaifenesin La 600 Mg Tab.Er.12h) 600 mg PO BID [facility] Last Admin: 01/30/23 21:28 Dose: 600 mg Hydroxyzine HCl (Hydroxyzine Hcl 50 Mg Tablet) 50 mg PO Q4H PRN PRN Reason: Anxiety Last Admin: 01/26/23 14:12 Dose: 50 mg Ibuprofen (Ibuprofen 600 Mg Tablet) 600 mg PO Q6H PRN PRN Reason: Pain, Moderate (Pain Scale 4-6 Last Admin: 01/30/23 21:28 Dose: 600 mg Lamotrigine (Lamotrigine 100 Mg Tablet) 100 mg PO BID [facility] Last Admin: 01/30/23 21:32 Dose: 100 mg Latanoprost (Latanoprost 0.005 % Ophth No 2.5 Ml Drops) 1 drop EYE-BOTH BEDTIME [facility] Last Admin: 01/30/23 21:29 Dose: 1 drop Lidocaine (Lidocaine 4 % Patch Adh..Patch) 1 patch TRANSDERMA DAILY [facility]; Protocol Last Admin: 01/30/23 09:12 Dose: Not Given Lidocaine (Lidocaine 5 % Ointment 35 Gm) 1 appl TOPICAL Q6H PRN; Protocol PRN Reason: Hemorrhoid pain Last Admin: 01/30/23 21:59 Dose: 1 appl Multi-Ingred Cream/Lotion/Oil/Oint (Mineral Oil/Petrolatum,White 106 Gm Tube) 1 appl TOPICAL BID PRN; Protocol PRN Reason: dry skin Nortriptyline HCl (Nortriptyline Hcl 25 Mg Capsule) 50 mg PO BEDTIME [facility] Last Admin: 01/30/23 21:29 Dose: 50 mg Olanzapine (Olanzapine 2.5 Mg Tablet) 2.5 mg PO DAILY [facility] Last Admin: 01/30/23 09:11 Dose: 2.5 mg Olanzapine (Olanzapine 2.5 Mg Tablet) 2.5 mg PO DAILY@1500 [facility] Last Admin: 01/30/23 14:58 Dose: 2.5 mg Olanzapine (Olanzapine 5 Mg Tablet) 5 mg PO BEDTIME [facility] Last Admin: 01/30/23 21:29 Dose: 5 mg Ondansetron HCl (Ondansetron Odt 4 Mg Tab.Rapdis) 4 mg TRANSLINGU Q6H PRN PRN Reason: Nausea and Vomiting Last Admin: 01/11/23 08:34 Dose: 4 mg Polyethylene Glycol (Polyethylene Glycol 3350 17 Gm Powd.Pack) 17 gm PO BID [facility] Last Admin: 01/30/23 21:31 Dose: Not Given Senna/Docusate Sodium (Sennosides/Docusate Sodium Tablet) 2 tab PO BID [facility] Last Admin: 01/30/23 21:31 Dose: Not Given Sodium Biphosphate/Sodium Phosphate (Sodium Phosphate,[place]-Dibasic 133 Ml Enema) 133 ml [place] ONCE PRN PRN Reason: Constipation Sodium Chloride (Sodium Chloride 0.65 % Nasal 44 Ml Sprbtl) 1 spray NOSTRIL-B Q1H PRN PRN Reason: Nasal Congestion Tamsulosin HCl (Tamsulosin Hcl 0.4 Mg Capsule) 0.4 mg PO DAILY [facility] Last Admin: 01/30/23 09:11 Dose: 0.4 mg Trazodone HCl (Trazodone Hcl 100 Mg Tablet) 200 mg PO BEDTIME [facility] Last Admin: 01/30/23 21:32 Dose: 200 mg Venlafaxine HCl (Venlafaxine Hcl Er 75 Mg Cap.Er.24h) 75 mg PO DAILY [facility] Last Admin: 01/30/23 09:11 Dose: 75 mg Allergies Allergies Allergy/AdvReac Type Severity Reaction Status Date / Time fentanyl [FENTANYL] Allergy Intermediate unknown Verified 04/08/22 07:00 Assessment & Plan Assessment & Plan (1) Major depressive disorder, recurrent severe without psychotic features: Status: Acute Code(s): F33.2 - Major depressive disorder, recurrent severe without psychotic features (2) Cognitive and neurobehavioral dysfunction following brain injury: Status: Acute Code(s): G31.89 - Other specified degenerative diseases of nervous system; F09 - Unspecified mental disorder due to known physiological condition; S06.9X9S - Unspecified intracranial injury with loss of consciousness of unspecified duration, sequela (3) Swallowing dysfunction: Status: Acute Code(s): R13.10 - Dysphagia, unspecified (4) Personality disorder in adult: Status: Acute Code(s): F60.9 - Personality disorder, unspecified Plan Patient seems minimally less labile with olanzapine during the day and alprazolam to decrease irritability reactivity monitor for over sedation continue discharge planning Encourage daily strength training lower Effexor to 75 mg in case it is overly stimulating the patient to increased reactivity Start Depakote 125 mg twice a day will start gradually for mood instability 01/05: Continue current plans and regimen 01/06/2023 Patient feels better on Depakote increase Depakote to 125 t.i.d. lower Lamictal 01/07/2023 Increase Depakote to 250 b.i.d. secondary to anxiety reviewed cognitive behavioral strategies 01/08/23 pt seems improved with depakote cont plan of care 01/09/23 Pt seen in f/u mood improved encourage inc perspective cbt skills 01/11: Continue tx plan. 01/12/23 Monitor medical safety ck o 2 isolation cont meds otherwise 2022 Continue Effexor Depakote Lamictal monitor patient for more acute COVID symptoms continue isolation 01/14/2023 Continue plan of care encourage coping strategies reading Increase Depakote 375 mg twice a day Depakote level 40 to encourage CBT strategies continue continue isolation 01/15/23 cont plan of care 01/16/2023 Patient needs much reassurance and support continue medication encourage perspective coping strategies 01/17/2023 Continue plan of care 01/18/2023 Continue to monitor response to need for isolation and recent COVID 01/19/23 Pt seen in f/u mood depressed agitated inc depakote inc zyprexa for mood stability 01/20/2023 Patient seen in follow-up less depressed less labile continue difficulty with isolation 01/21/2023 Patient seen in follow-up gradually improving coping better using more relaxation and cognitive techniques including music 01/22/23 cont plan of care off isolation d/c planning c/o pain r nasal orbital ridge 01/23/2023 CT orbital scan consult Dr. Casarez continue medications otherwise 01/24 reports right periorobital discomfort; added nasal saline drops; discussed with Dr. Mayberry who recs augmentin bid for 7 days if continued discomfort 01/25 continue with comfort medication; primary team to reassess whether not to start antibiotic for acute sinusitis 01/26 continue current tx. 01/27/2023 Continue plan of care discharge planning. 01/28 Continue with same treatment 01/29/2023 Continue plan of care start nasal steroid for sinusitis drainage pre consult medicine if needed Saline nasal spray p.r.n. 01/30 continue with same treatment. 01/31 continue same treatment Reason for contiued inpatient stay Substantial Risk for: inability to function, rapid decompensation and med/psych decompensation Time Spent With Patient Time: Total time managing care of this patient today _20___ minutes.
[2023-01-31 08:52] VITALS: BP 133/64; PULSE 75; RESP 18; TEMP 36.4; O2SAT 95
[2023-01-31] MEDS: Fluticasone Propionate Nasal 16 GM SPRAY 1 SPRAY NOSTRIL-B ×2 (08:54→21:10)
[2023-01-31] MEDS: Gabapentin 100 MG CAPSULE PO ×3 (08:55→21:17)
[2023-01-31] MEDS: Venlafaxine HCl ER 75 MG CAP.ER.24H PO (08:55)
[2023-01-31] MEDS: Divalproex Sodium Sprinkles 125 MG CAP.DR.SPR 375 MG PO ×2 (08:56→21:15)
[2023-01-31] MEDS: guaiFENesin LA 600 MG TAB.ER.12H PO (08:56)
[2023-01-31] MEDS: lamoTRIgine 100 MG TABLET PO ×2 (08:56→21:19)
[2023-01-31] MEDS: Tamsulosin HCL 0.4 MG CAPSULE PO (08:56)
[2023-01-31] MEDS: amLODIPine Besylate 5 MG TABLET PO (08:57)
[2023-01-31] MEDS: OLANZapine 2.5 MG TABLET PO ×2 (08:58→14:45)
[2023-01-31] MEDS: Amoxicillin/Potassium Clav 500 MG TABLET PO (11:09)
[2023-01-31] MEDS: Ibuprofen 600 MG TABLET PO ×2 (12:49→21:14)
[2023-01-31 18:41] VITALS: BP 143/68; PULSE 75; RESP 18; TEMP 36.2; O2SAT 96
[2023-01-31] MEDS: Sodium Chloride 0.65 % Nasal 44 ML SPRBTL 1 SPRAY NOSTRIL-B (21:12)
[2023-01-31] MEDS: Sennosides/Docusate Sodium TABLET 2 TAB PO (21:14)
[2023-01-31] MEDS: traZODone HCL 100 MG TABLET 200 MG PO (21:16)
[2023-01-31] MEDS: Nortriptyline HCl 25 MG CAPSULE 50 MG PO (21:18)
[2023-01-31] MEDS: OLANZapine 5 MG TABLET PO (21:19)
[2023-01-31] MEDS: ALPRAZolam 0.5 MG TABLET PO (21:20)
[2023-01-31] MEDS: Latanoprost 0.005 % Ophth Sol 2.5 ML DROPS 1 DROP EYE-BOTH (21:20)
[2023-02-01] MEDS: Amoxicillin/Potassium Clav 500 MG TABLET PO ×3 (00:12→23:41)
[2023-02-01 07:30] VITALS: BP 179/81; PULSE 77; RESP 15; TEMP 36.4; O2SAT 97
[2023-02-01] MEDS: Venlafaxine HCl ER 75 MG CAP.ER.24H PO (08:39)
[2023-02-01] MEDS: guaiFENesin LA 600 MG TAB.ER.12H PO ×2 (08:39→21:02)
[2023-02-01] MEDS: Divalproex Sodium Sprinkles 125 MG CAP.DR.SPR 375 MG PO ×2 (08:39→21:02)
[2023-02-01] MEDS: OLANZapine 2.5 MG TABLET PO ×2 (08:39→14:08)
[2023-02-01] MEDS: Gabapentin 100 MG CAPSULE PO ×3 (08:39→21:03)
[2023-02-01] MEDS: Tamsulosin HCL 0.4 MG CAPSULE PO (08:39)
[2023-02-01] MEDS: amLODIPine Besylate 5 MG TABLET PO (08:40)
[2023-02-01] MEDS: lamoTRIgine 100 MG TABLET PO ×2 (08:40→21:02)
[2023-02-01] MEDS: Sodium Chloride 0.65 % Nasal 44 ML SPRBTL 1 SPRAY NOSTRIL-B (08:46)
[2023-02-01] MEDS: Fluticasone Propionate Nasal 16 GM SPRAY 1 SPRAY NOSTRIL-B ×2 (08:46→21:20)
--- NOTE | 2023-02-01 09:36 | P.PNPSI_ITS ---
Subjective Subjective Date of Service: 02/01/23 Reason For Visit: Depression hopelessness irritability Subjective Notes: Conditional Voluntary Interim History: The nursing staff reported the patient had been on high spirits still anxious but pleasant and cooperative. He still antibiotics for sinusitis. He slept well last night. On interview the patient denies new symptoms. Mental Status Exam Mental Status Exam Patient Appearance: Well Grooomed and Appropriate Patient Orientation: Person and Situation Level of Consciousness: Awake and Appropriate Patient Behavior: Appropriate and Cooperative Mood Description: Calm Affect Description: Constricted Patient Cognition Impaired: No Ability to Follow Directions: Good Speech Pattern: Clear Hallucinations: None Delusions: Not Present Thought Process: Linear Thought Content: positive for [place] and positive for Poverty of Content Judgement: Fair Diagnostics Vital Signs (24Hr): Vital Signs - 24 hr 01/31/23 18:41 02/01/23 07:30 Temperature 97.2 F 97.5 F Pulse Rate 75 77 Respiratory Rate 18 15 Blood Pressure 143/68 H 179/81 H Pulse Oximetry 96 97 Oxygen Delivery Method Room Air Room Air BMI result Body Mass Index 30.2 Labs 11/13/22 07:43 11/12/22 09:32 Imaging Radiology Impressions: ITS Impressions Chest X-Ray 10/20/22 15:45 IMPRESSION: 1. Low lung volumes with bibasilar linear disc atelectasis versus scarring. 2. No airspace consolidation or effusion. Head CT 11/08/22 12:29 IMPRESSION: No acute intracranial hemorrhage or territorial infarction. Stable chronic postoperative changes with gliosis and encephalomalacia in the right frontal and right temporal lobes. Ex vacuo dilatation of the ventricles and diffuse parenchymal volume loss. Right-sided craniotomy changes. Chest X-Ray 11/12/22 10:32 IMPRESSION: Hypoexpanded lungs with bibasilar platelike atelectasis. Brain MRI 11/12/22 13:15 IMPRESSION: 1. No demonstrated acute intracranial abnormalities. 2. Chronic encephalomalacia of the right temporal, right frontal, and left occipital lobes. Small regions of chronic encephalomalacia in the parasagittal aspects of the bilateral parietal lobes. Moderate underlying microangiopathy and generalized cerebral volume loss. Chest X-Ray 11/14/22 15:52 IMPRESSION: Low lung volumes, bibasilar subsegmental atelectasis and slight elevation of the right hemidiaphragm similar to previous exam. Modified Barium Swallow 11/21/22 15:11 IMPRESSION: Laryngeal penetration on several occasions but no laryngeal aspiration. Mild retention of solid food in the valleculae which cleared with subsequent oral administration of water or thin barium. Correlate with speech therapy results. Orbit CT 01/23/23 14:05 IMPRESSION: - No definite significant intraorbital soft tissue findings to assessment is limited on a noncontrast CT of the orbits. No retrobulbar mass lesions and no cellulitic changes appreciated. - There are large fluid levels within the left maxillary sinus and within the right frontal sinus the can be correlated for clinical signs of acute sinusitis. - A peripherally ossified structure extending from the dorsal margin of the right nasolacrimal duct into the right maxillary sinus is stable when compared to examinations dated back to 08/24/2008 favoring a benign etiology. Medications Medications Current Medications Acetaminophen (Acetaminophen 325 Mg Tablet) 1,000 mg PO Q6H PRN PRN Reason: Headache/Pain Mild Scale (1-3) Last Admin: 01/30/23 16:51 Dose: 1,000 mg Albuterol Sulfate (Albuterol Sulfate 90 Mcg 8 Gm Inhaler) 2 puff INHALE Q6H PRN PRN Reason: Wheezing Alprazolam (Alprazolam 0.5 Mg Tablet) 0.5 mg PO BEDTIME [facility] Last Admin: 01/31/23 21:20 Dose: 0.5 mg Alprazolam (Alprazolam 0.25 Mg Tablet) 0.25 mg PO Q4H PRN PRN Reason: Anxiety Last Admin: 01/28/23 03:54 Dose: 0.25 mg Amlodipine Besylate (Amlodipine Besylate 5 Mg Tablet) 5 mg PO DAILY [facility]; Protocol Last Admin: 02/01/23 08:40 Dose: 5 mg Amoxicillin/Clavulanate Potassium (Amoxicillin/Potassium Clav 500 Mg Tablet) 500 mg PO Q12H [facility] Stop: 02/02/23 23:01 Last Admin: 02/01/23 00:12 Dose: 500 mg Bisacodyl (Bisacodyl 10 Mg Supp.Rect) 10 mg [place] DAILY PRN PRN Reason: Constipation Divalproex Sodium (Divalproex Sodium Sprinkles 125 Mg ) 375 mg PO BID [facility] Last Admin: 02/01/23 08:39 Dose: 375 mg Fluticasone Propionate (Fluticasone Propionate Nasal 16 Gm [place]) 1 spray NOSTRIL-B BID [facility] Last Admin: 02/01/23 08:46 Dose: 1 spray Gabapentin (Gabapentin 100 Mg Capsule) 100 mg PO TID [facility] Last Admin: 02/01/23 08:39 Dose: 100 mg Guaifenesin (Guaifenesin La 600 Mg Tab.Er.12h) 600 mg PO BID [facility] Last Admin: 02/01/23 08:39 Dose: 600 mg Hydroxyzine HCl (Hydroxyzine Hcl 50 Mg Tablet) 50 mg PO Q4H PRN PRN Reason: Anxiety Last Admin: 01/26/23 14:12 Dose: 50 mg Ibuprofen (Ibuprofen 600 Mg Tablet) 600 mg PO Q6H PRN PRN Reason: Pain, Moderate (Pain Scale 4-6 Last Admin: 01/31/23 21:14 Dose: 600 mg Lamotrigine (Lamotrigine 100 Mg Tablet) 100 mg PO BID [facility] Last Admin: 02/01/23 08:40 Dose: 100 mg Latanoprost (Latanoprost 0.005 % Ophth No 2.5 Ml Drops) 1 drop EYE-BOTH BEDTIME [facility] Last Admin: 01/31/23 21:20 Dose: 1 drop Lidocaine (Lidocaine 4 % Patch Adh..Patch) 1 patch TRANSDERMA DAILY [facility]; Protocol Last Admin: 02/01/23 08:43 Dose: Not Given Lidocaine (Lidocaine 5 % Ointment 35 Gm) 1 appl TOPICAL Q6H PRN; Protocol PRN Reason: Hemorrhoid pain Last Admin: 01/30/23 21:59 Dose: 1 appl Multi-Ingred Cream/Lotion/Oil/Oint (Mineral Oil/Petrolatum,White 106 Gm Tube) 1 appl TOPICAL BID PRN; Protocol PRN Reason: dry skin Nortriptyline HCl (Nortriptyline Hcl 25 Mg Capsule) 50 mg PO BEDTIME [facility] Last Admin: 01/31/23 21:18 Dose: 50 mg Olanzapine (Olanzapine 2.5 Mg Tablet) 2.5 mg PO DAILY [facility] Last Admin: 02/01/23 08:39 Dose: 2.5 mg Olanzapine (Olanzapine 2.5 Mg Tablet) 2.5 mg PO DAILY@1500 [facility] Last Admin: 01/31/23 14:45 Dose: 2.5 mg Olanzapine (Olanzapine 5 Mg Tablet) 5 mg PO BEDTIME [facility] Last Admin: 01/31/23 21:19 Dose: 5 mg Ondansetron HCl (Ondansetron Odt 4 Mg Tab.Rapdis) 4 mg TRANSLINGU Q6H PRN PRN Reason: Nausea and Vomiting Last Admin: 01/11/23 08:34 Dose: 4 mg Polyethylene Glycol (Polyethylene Glycol 3350 17 Gm Powd.Pack) 17 gm PO BID [facility] Last Admin: 02/01/23 08:41 Dose: Not Given Senna/Docusate Sodium (Sennosides/Docusate Sodium Tablet) 2 tab PO BID [facility] Last Admin: 02/01/23 08:41 Dose: Not Given Sodium Biphosphate/Sodium Phosphate (Sodium Phosphate,[place]-Dibasic 133 Ml Enema) 133 ml [place] ONCE PRN PRN Reason: Constipation Sodium Chloride (Sodium Chloride 0.65 % Nasal 44 Ml Sprbtl) 1 spray NOSTRIL-B Q1H PRN PRN Reason: Nasal Congestion Last Admin: 02/01/23 08:46 Dose: 1 spray Tamsulosin HCl (Tamsulosin Hcl 0.4 Mg Capsule) 0.4 mg PO DAILY [facility] Last Admin: 02/01/23 08:39 Dose: 0.4 mg Trazodone HCl (Trazodone Hcl 100 Mg Tablet) 200 mg PO BEDTIME [facility] Last Admin: 01/31/23 21:16 Dose: 200 mg Venlafaxine HCl (Venlafaxine Hcl Er 75 Mg Cap.Er.24h) 75 mg PO DAILY [facility] Last Admin: 02/01/23 08:39 Dose: 75 mg Allergies Allergies Allergy/AdvReac Type Severity Reaction Status Date / Time fentanyl [FENTANYL] Allergy Intermediate unknown Verified 04/08/22 07:00 Assessment & Plan Assessment & Plan (1) Major depressive disorder, recurrent severe without psychotic features: Status: Acute Code(s): F33.2 - Major depressive disorder, recurrent severe without psychotic features (2) Cognitive and neurobehavioral dysfunction following brain injury: Status: Acute Code(s): G31.89 - Other specified degenerative diseases of nervous system; F09 - Unspecified mental disorder due to known physiological condition; S06.9X9S - Unspecified intracranial injury with loss of consciousness of unspecified duration, sequela (3) Swallowing dysfunction: Status: Acute Code(s): R13.10 - Dysphagia, unspecified (4) Personality disorder in adult: Status: Acute Code(s): F60.9 - Personality disorder, unspecified Plan Patient seems minimally less labile with olanzapine during the day and alprazola m to decrease irritability reactivity monitor for over sedation continue discharge planning Encourage daily strength training lower Effexor to 75 mg in case it is overly stimulating the patient to increased reactivity Start Depakote 125 mg twice a day will start gradually for mood instability 01/05: Continue current plans and regimen 01/06/2023 Patient feels better on Depakote increase Depakote to 125 t.i.d. lower Lamictal 01/07/2023 Increase Depakote to 250 b.i.d. secondary to anxiety reviewed cognitive behavioral strategies 01/08/23 pt seems improved with depakote cont plan of care 01/09/23 Pt seen in f/u mood improved encourage inc perspective cbt skills 01/11: Continue tx plan. 01/12/23 Monitor medical safety ck o 2 isolation cont meds otherwise 2022 Continue Effexor Depakote Lamictal monitor patient for more acute COVID symptoms continue isolation 01/14/2023 Continue plan of care encourage coping strategies reading Increase Depakote 375 mg twice a day Depakote level 40 to encourage CBT strategies continue continue isolation 01/15/23 cont plan of care 01/16/2023 Patient needs much reassurance and support continue medication encourage perspective coping strategies 01/17/2023 Continue plan of care 01/18/2023 Continue to monitor response to need for isolation and recent COVID 01/19/23 Pt seen in f/u mood depressed agitated inc depakote inc zyprexa for mood stability 01/20/2023 Patient seen in follow-up less depressed less labile continue difficulty with isolation 01/21/2023 Patient seen in follow-up gradually improving coping better using more relaxation and cognitive techniques including music 01/22/23 cont plan of care off isolation d/c planning c/o pain r nasal orbital ridge 01/23/2023 CT orbital scan consult Dr. Casarez continue medications otherwise 01/24 reports right periorobital discomfort; added nasal saline drops; discussed with Dr. Mayberry who recs augmentin bid for 7 days if continued discomfort 01/25 continue with comfort medication; primary team to reassess whether not to start antibiotic for acute sinusitis 01/26 continue current tx. 01/27/2023 Continue plan of care discharge planning. 01/28 Continue with same treatment 01/29/2023 Continue plan of care start nasal steroid for sinusitis drainage pre consult medicine if needed Saline nasal spray p.r.n. 01/30 continue with same treatment. 01/31 continue same treatment 02/01 continue same treatment Reason for contiued inpatient stay Substantial Risk for: inability to function, rapid decompensation and med/psych decompensation Time Spent With Patient Time: Total time managing care of this patient today __20__ minutes.
[2023-02-01] MEDS: Sennosides/Docusate Sodium TABLET 2 TAB PO ×2 (10:52→21:02)
[2023-02-01] MEDS: Lidocaine 5 % Ointment 35 GM 1 APPL TOPICAL ×2 (12:38→21:08)
[2023-02-01 18:41] VITALS: BP 116/68; PULSE 81; RESP 18; TEMP 36.6; O2SAT 97
[2023-02-01] MEDS: Acetaminophen 325 MG TABLET 1000 MG PO (18:45)
[2023-02-01] MEDS: traZODone HCL 100 MG TABLET 200 MG PO (21:01)
[2023-02-01] MEDS: Nortriptyline HCl 25 MG CAPSULE 50 MG PO (21:02)
[2023-02-01] MEDS: ALPRAZolam 0.5 MG TABLET PO (21:02)
[2023-02-01] MEDS: OLANZapine 5 MG TABLET PO (21:03)
[2023-02-01] MEDS: Latanoprost 0.005 % Ophth Sol 2.5 ML DROPS 1 DROP EYE-BOTH (21:20)
[2023-02-02 07:30] VITALS: BP 138/80; PULSE 83; RESP 15; TEMP 36.4; O2SAT 95
[2023-02-02] MEDS: guaiFENesin LA 600 MG TAB.ER.12H PO (08:17)
[2023-02-02] MEDS: Gabapentin 100 MG CAPSULE PO ×3 (08:17→23:31)
[2023-02-02] MEDS: OLANZapine 2.5 MG TABLET PO ×2 (08:17→14:51)
[2023-02-02] MEDS: amLODIPine Besylate 5 MG TABLET PO (08:17)
[2023-02-02] MEDS: Tamsulosin HCL 0.4 MG CAPSULE PO (08:18)
[2023-02-02] MEDS: Divalproex Sodium Sprinkles 125 MG CAP.DR.SPR 375 MG PO ×2 (08:18→23:26)
[2023-02-02] MEDS: lamoTRIgine 100 MG TABLET PO ×2 (08:18→23:33)
[2023-02-02] MEDS: Venlafaxine HCl ER 75 MG CAP.ER.24H PO (08:18)
[2023-02-02] MEDS: Fluticasone Propionate Nasal 16 GM SPRAY 1 SPRAY NOSTRIL-B (08:22)
[2023-02-02] MEDS: Amoxicillin/Potassium Clav 500 MG TABLET PO ×2 (11:37→23:50)
--- NOTE | 2023-02-02 12:15 | HO.PSYCHPN ---
Subjective Subjective Date of Service: 02/03/23 Reason For Visit: Depression hopelessness irritability Subjective Notes: Conditional Voluntary Interim History: Patient's case reviewed with treatment team chart reviewed patient seen. Patient was more irritable reactive agitated. 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 He does feel Depakote has been helpful. Medication Compliance: Yes Attending Groups: Yes Review of Systems Chronic fungal infection difficulty with bowel functioning Mental Status Exam Mental Status Exam Patient Appearance: Well Grooomed and Appropriate Patient Orientation: Person and Situation Level of Consciousness: Awake and Appropriate Patient Behavior: Appropriate and Cooperative Mood Description: Constricted, Anxious and Apprehensive Affect Description: Constricted Patient Cognition Impaired: No Ability to Follow Directions: Good Speech Pattern: Clear Hallucinations: None Delusions: Not Present Thought Process: Linear Thought Content: positive for [place] and positive for Poverty of Content Judgement: Fair Judgement and Insight: Difficulty with reactivity Diagnostics Vital Signs (24Hr): Vital Signs - 24 hr 02/01/23 18:41 02/02/23 07:30 Temperature 97.8 F 97.6 F Pulse Rate 81 83 Respiratory Rate 18 15 Blood Pressure 116/68 138/80 Pulse Oximetry 97 95 Oxygen Delivery Method Room Air Room Air BMI result Body Mass Index 30.2 Labs 11/13/22 07:43 11/12/22 09:32 Imaging Radiology Impressions: ITS Impressions Chest X-Ray 10/20/22 15:45 IMPRESSION: 1. Low lung volumes with bibasilar linear disc atelectasis versus scarring. 2. No airspace consolidation or effusion. Head CT 11/08/22 12:29 IMPRESSION: No acute intracranial hemorrhage or territorial infarction. Stable chronic postoperative changes with gliosis and encephalomalacia in the right frontal and right temporal lobes. Ex vacuo dilatation of the ventricles and diffuse parenchymal volume loss. Right-sided craniotomy changes. Chest X-Ray 11/12/22 10:32 IMPRESSION: Hypoexpanded lungs with bibasilar platelike atelectasis. Brain MRI 11/12/22 13:15 IMPRESSION: 1. No demonstrated acute intracranial abnormalities. 2. Chronic encephalomalacia of the right temporal, right frontal, and left occipital lobes. Small regions of chronic encephalomalacia in the parasagittal aspects of the bilateral parietal lobes. Moderate underlying microangiopathy and generalized cerebral volume loss. Chest X-Ray 11/14/22 15:52 IMPRESSION: Low lung volumes, bibasilar subsegmental atelectasis and slight elevation of the right hemidiaphragm similar to previous exam. Modified Barium Swallow 11/21/22 15:11 IMPRESSION: Laryngeal penetration on several occasions but no laryngeal aspiration. Mild retention of solid food in the valleculae which cleared with subsequent oral administration of water or thin barium. Correlate with speech therapy results. Orbit CT 01/23/23 14:05 IMPRESSION: - No definite significant intraorbital soft tissue findings to assessment is limited on a noncontrast CT of the orbits. No retrobulbar mass lesions and no cellulitic changes appreciated. - There are large fluid levels within the left maxillary sinus and within the right frontal sinus the can be correlated for clinical signs of acute sinusitis. - A peripherally ossified structure extending from the dorsal margin of the right nasolacrimal duct into the right maxillary sinus is stable when compared to examinations dated back to 08/24/2008 favoring a benign etiology. Medications Medications Current Medications Acetaminophen (Acetaminophen 325 Mg Tablet) 1,000 mg PO Q6H PRN PRN Reason: Headache/Pain Mild Scale (1-3) Last Admin: 02/01/23 18:45 Dose: 1,000 mg Albuterol Sulfate (Albuterol Sulfate 90 Mcg 8 Gm Inhaler) 2 puff INHALE Q6H PRN PRN Reason: Wheezing Alprazolam (Alprazolam 0.5 Mg Tablet) 0.5 mg PO BEDTIME [facility] Last Admin: 02/01/23 21:02 Dose: 0.5 mg Alprazolam (Alprazolam 0.25 Mg Tablet) 0.25 mg PO Q4H PRN PRN Reason: Anxiety Last Admin: 01/28/23 03:54 Dose: 0.25 mg Amlodipine Besylate (Amlodipine Besylate 5 Mg Tablet) 5 mg PO DAILY [facility]; Protocol Last Admin: 02/02/23 08:17 Dose: 5 mg Amoxicillin/Clavulanate Potassium (Amoxicillin/Potassium Clav 500 Mg Tablet) 500 mg PO Q12H [facility] Stop: 02/02/23 23:01 Last Admin: 02/02/23 11:37 Dose: 500 mg Bisacodyl (Bisacodyl 10 Mg Supp.Rect) 10 mg [place] DAILY PRN PRN Reason: Constipation Divalproex Sodium (Divalproex Sodium Sprinkles 125 Mg ) 375 mg PO BID [facility] Last Admin: 02/02/23 08:18 Dose: 375 mg Fluticasone Propionate (Fluticasone Propionate Nasal 16 Gm [place]) 1 spray NOSTRIL-B BID [facility] Last Admin: 02/02/23 08:22 Dose: 1 spray Gabapentin (Gabapentin 100 Mg Capsule) 100 mg PO TID [facility] Last Admin: 02/02/23 08:17 Dose: 100 mg Guaifenesin (Guaifenesin La 600 Mg Tab.Er.12h) 600 mg PO BID [facility] Last Admin: 02/02/23 08:17 Dose: 600 mg Hydroxyzine HCl (Hydroxyzine Hcl 50 Mg Tablet) 50 mg PO Q4H PRN PRN Reason: Anxiety Last Admin: 01/26/23 14:12 Dose: 50 mg Ibuprofen (Ibuprofen 600 Mg Tablet) 600 mg PO Q6H PRN PRN Reason: Pain, Moderate (Pain Scale 4-6 Last Admin: 01/31/23 21:14 Dose: 600 mg Lamotrigine (Lamotrigine 100 Mg Tablet) 100 mg PO BID [facility] Last Admin: 02/02/23 08:18 Dose: 100 mg Latanoprost (Latanoprost 0.005 % Ophth No 2.5 Ml Drops) 1 drop EYE-BOTH BEDTIME [facility] Last Admin: 02/01/23 21:20 Dose: 1 drop Lidocaine (Lidocaine 4 % Patch Adh..Patch) 1 patch TRANSDERMA DAILY [facility]; Protocol Last Admin: 02/02/23 10:12 Dose: Not Given Lidocaine (Lidocaine 5 % Ointment 35 Gm) 1 appl TOPICAL Q6H PRN; Protocol PRN Reason: Hemorrhoid pain Last Admin: 02/01/23 21:08 Dose: 1 appl Multi-Ingred Cream/Lotion/Oil/Oint (Mineral Oil/Petrolatum,White 106 Gm Tube) 1 appl TOPICAL BID PRN; Protocol PRN Reason: dry skin Nortriptyline HCl (Nortriptyline Hcl 25 Mg Capsule) 50 mg PO BEDTIME [facility] Last Admin: 02/01/23 21:02 Dose: 50 mg Olanzapine (Olanzapine 2.5 Mg Tablet) 2.5 mg PO DAILY [facility] Last Admin: 02/02/23 08:17 Dose: 2.5 mg Olanzapine (Olanzapine 2.5 Mg Tablet) 2.5 mg PO DAILY@1500 [facility] Last Admin: 02/01/23 14:08 Dose: 2.5 mg Olanzapine (Olanzapine 5 Mg Tablet) 5 mg PO BEDTIME [facility] Last Admin: 02/01/23 21:03 Dose: 5 mg Ondansetron HCl (Ondansetron Odt 4 Mg Tab.Rapdis) 4 mg TRANSLINGU Q6H PRN PRN Reason: Nausea and Vomiting Last Admin: 01/11/23 08:34 Dose: 4 mg Polyethylene Glycol (Polyethylene Glycol 3350 17 Gm Powd.Pack) 17 gm PO BID [facility] Last Admin: 02/02/23 10:13 Dose: Not Given Senna/Docusate Sodium (Sennosides/Docusate Sodium Tablet) 2 tab PO BID [facility] Last Admin: 02/02/23 10:13 Dose: Not Given Sodium Biphosphate/Sodium Phosphate (Sodium Phosphate,[place]-Dibasic 133 Ml Enema) 133 ml [place] ONCE PRN PRN Reason: Constipation Sodium Chloride (Sodium Chloride 0.65 % Nasal 44 Ml Sprbtl) 1 spray NOSTRIL-B Q1H PRN PRN Reason: Nasal Congestion Last Admin: 02/01/23 08:46 Dose: 1 spray Tamsulosin HCl (Tamsulosin Hcl 0.4 Mg Capsule) 0.4 mg PO DAILY [facility] Last Admin: 02/02/23 08:18 Dose: 0.4 mg Trazodone HCl (Trazodone Hcl 100 Mg Tablet) 200 mg PO BEDTIME [facility] Last Admin: 02/01/23 21:01 Dose: 200 mg Venlafaxine HCl (Venlafaxine Hcl Er 75 Mg Cap.Er.24h) 75 mg PO DAILY [facility] Last Admin: 02/02/23 08:18 Dose: 75 mg Allergies Allergies Allergy/AdvReac Type Severity Reaction Status Date / Time fentanyl [FENTANYL] Allergy Intermediate unknown Verified 04/08/22 07:00 Assessment & Plan Assessment & Plan (1) Major depressive disorder, recurrent severe without psychotic features: Status: Acute Code(s): F33.2 - Major depressive disorder, recurrent severe without psychotic features (2) Cognitive and neurobehavioral dysfunction following brain injury: Status: Acute Code(s): G31.89 - Other specified degenerative diseases of nervous system; F09 - Unspecified mental disorder due to known physiological condition; S06.9X9S - Unspecified intracranial injury with loss of consciousness of unspecified duration, sequela (3) Swallowing dysfunction: Status: Acute Code(s): R13.10 - Dysphagia, unspecified (4) Personality disorder in adult: Status: Acute Code(s): F60.9 - Personality disorder, unspecified Plan Patient seems minimally less labile with olanzapine during the day and alprazolam to decrease irritability reactivity monitor for over sedation continue discharge planning Encourage daily strength training lower Effexor to 75 mg in case it is overly stimulating the patient to increased reactivity Start Depakote 125 mg twice a day will start gradually for mood instability 01/05: Continue current plans and regimen 01/06/2023 Patient feels better on Depakote increase Depakote to 125 t.i.d. lower Lamictal 01/07/2023 Increase Depakote to 250 b.i.d. secondary to anxiety reviewed cognitive behavioral strategies 01/08/23 pt seems improved with depakote cont plan of care 01/09/23 Pt seen in f/u mood improved encourage inc perspective cbt skills 01/11: Continue tx plan. 01/12/23 Monitor medical safety ck o 2 isolation cont meds otherwise 2022 Continue Effexor Depakote Lamictal monitor patient for more acute COVID symptoms continue isolation 01/14/2023 Continue plan of care encourage coping strategies reading Increase Depakote 375 mg twice a day Depakote level 40 to encourage CBT strategies continue continue isolation 01/15/23 cont plan of care 01/16/2023 Patient needs much reassurance and support continue medication encourage perspective coping strategies 01/17/2023 Continue plan of care 01/18/2023 Continue to monitor response to need for isolation and recent COVID 01/19/23 Pt seen in f/u mood depressed agitated inc depakote inc zyprexa for mood stability 01/20/2023 Patient seen in follow-up less depressed less labile continue difficulty with isolation 01/21/2023 Patient seen in follow-up gradually improving coping better using more relaxation and cognitive techniques including music 01/22/23 cont plan of care off isolation d/c planning c/o pain r nasal orbital ridge 01/23/2023 CT orbital scan consult Dr. Casarez continue medications otherwise 01/24 reports right periorobital discomfort; added nasal saline drops; discussed with Dr. Mayberry who recs augmentin bid for 7 days if continued discomfort 01/25 continue with comfort medication; primary team to reassess whether not to start antibiotic for acute sinusitis 01/26 continue current tx. 01/27/2023 Continue plan of care discharge planning. 01/28 Continue with same treatment 01/29/2023 Continue plan of care start nasal steroid for sinusitis drainage pre consult medicine if needed Saline nasal spray p.r.n. 01/30 continue with same treatment. 01/31 continue same treatment 02/01 continue same treatment 02/02/2023 Discussed issues related to right frontal head injury ways to maintain equanimity. Continue Depakote tapering Lamictal at higher doses Effexor not effective Patient educated on: medication risk/benefits and therapeutic strategies Informed Consent: understands Reason for contiued inpatient stay Substantial Risk for: inability to function and rapid decompensation Time Spent With Patient Time: Total time managing care of this patient today ____ minutes.
[2023-02-02] MEDS: Acetaminophen 325 MG TABLET 1000 MG PO ×2 (14:51→23:28)
[2023-02-02 18:00] VITALS: BP 144/72; PULSE 70; RESP 17; TEMP 36.4; O2SAT 94
[2023-02-02] MEDS: Nortriptyline HCl 25 MG CAPSULE 50 MG PO (23:25)
[2023-02-02] MEDS: ALPRAZolam 0.5 MG TABLET PO (23:26)
[2023-02-02] MEDS: Sennosides/Docusate Sodium TABLET 2 TAB PO (23:27)
[2023-02-02] MEDS: traZODone HCL 100 MG TABLET 200 MG PO (23:31)
[2023-02-02] MEDS: OLANZapine 5 MG TABLET PO (23:32)
[2023-02-02] MEDS: Nystatin Powder 15 GM BOTTLE 1 APPL TOPICAL (23:33)
[2023-02-02] MEDS: Latanoprost 0.005 % Ophth Sol 2.5 ML DROPS 1 DROP EYE-BOTH (23:34)
[2023-02-02] MEDS: Lidocaine 5 % Ointment 35 GM 1 APPL TOPICAL (23:36)
[2023-02-03 06:00] VITALS: BP 153/68; PULSE 77; RESP 18; TEMP 36.8; O2SAT 97
[2023-02-03] MEDS: amLODIPine Besylate 5 MG TABLET PO (11:15)
[2023-02-03] MEDS: OLANZapine 2.5 MG TABLET PO ×2 (11:15→15:38)
[2023-02-03] MEDS: lamoTRIgine 100 MG TABLET PO ×2 (11:15→22:04)
[2023-02-03] MEDS: Sennosides/Docusate Sodium TABLET 2 TAB PO ×2 (11:15→22:09)
[2023-02-03] MEDS: Divalproex Sodium Sprinkles 125 MG CAP.DR.SPR 375 MG PO ×2 (11:15→22:01)
[2023-02-03] MEDS: guaiFENesin LA 600 MG TAB.ER.12H PO (11:15)
[2023-02-03] MEDS: Gabapentin 100 MG CAPSULE PO ×3 (11:15→22:01)
[2023-02-03] MEDS: Tamsulosin HCL 0.4 MG CAPSULE PO (11:15)
[2023-02-03] MEDS: Venlafaxine HCl ER 75 MG CAP.ER.24H PO (11:16)
[2023-02-03] MEDS: ALPRAZolam 0.25 MG TABLET PO (11:25)
[2023-02-03] MEDS: Nystatin Powder 15 GM BOTTLE 1 APPL TOPICAL ×2 (11:25→22:59)
[2023-02-03] MEDS: Acetaminophen 325 MG TABLET 1000 MG PO ×2 (11:30→22:07)
--- NOTE | 2023-02-03 16:38 | HO.PSYCHPN ---
Subjective Subjective Date of Service: 02/03/23 Reason For Visit: Depression hopelessness irritability Subjective Notes: Conditional Voluntary Interim History: Patient seems to have better equanimity today less labile more future focused and better able to keep things in perspective working at decreasing reactivity irritability Medication Compliance: Yes Mental Status Exam Mental Status Exam Patient Appearance: Well Grooomed and Appropriate Patient Orientation: Person and Situation Level of Consciousness: Awake and Appropriate Patient Behavior: Appropriate and Cooperative Mood Description: Appropriate and Anxious Affect Description: Constricted and Anxious Patient Cognition Impaired: No Ability to Follow Directions: Good Speech Pattern: Clear Hallucinations: None Delusions: Not Present Thought Process: Linear Thought Content: positive for [place] and positive for Poverty of Content Judgement: Fair Judgement and Insight: Difficulty with reactivity open to suggestion Diagnostics Vital Signs (24Hr): Vital Signs - 24 hr 02/02/23 18:00 02/03/23 06:00 Temperature 97.5 F 98.2 F Pulse Rate 70 77 Respiratory Rate 17 18 Blood Pressure 144/72 H 153/68 H Pulse Oximetry 94 97 Oxygen Delivery Method Room Air Room Air BMI result Body Mass Index 30.2 Labs 11/13/22 07:43 11/12/22 09:32 Imaging Radiology Impressions: ITS Impressions Chest X-Ray 10/20/22 15:45 IMPRESSION: 1. Low lung volumes with bibasilar linear disc atelectasis versus scarring. 2. No airspace consolidation or effusion. Head CT 11/08/22 12:29 IMPRESSION: No acute intracranial hemorrhage or territorial infarction. Stable chronic postoperative changes with gliosis and encephalomalacia in the right frontal and right temporal lobes. Ex vacuo dilatation of the ventricles and diffuse parenchymal volume loss. Right-sided craniotomy changes. Chest X-Ray 11/12/22 10:32 IMPRESSION: Hypoexpanded lungs with bibasilar platelike atelectasis. Brain MRI 11/12/22 13:15 IMPRESSION: 1. No demonstrated acute intracranial abnormalities. 2. Chronic encephalomalacia of the right temporal, right frontal, and left occipital lobes. Small regions of chronic encephalomalacia in the parasagittal aspects of the bilateral parietal lobes. Moderate underlying microangiopathy and generalized cerebral volume loss. Chest X-Ray 11/14/22 15:52 IMPRESSION: Low lung volumes, bibasilar subsegmental atelectasis and slight elevation of the right hemidiaphragm similar to previous exam. Modified Barium Swallow 11/21/22 15:11 IMPRESSION: Laryngeal penetration on several occasions but no laryngeal aspiration. Mild retention of solid food in the valleculae which cleared with subsequent oral administration of water or thin barium. Correlate with speech therapy results. Orbit CT 01/23/23 14:05 IMPRESSION: - No definite significant intraorbital soft tissue findings to assessment is limited on a noncontrast CT of the orbits. No retrobulbar mass lesions and no cellulitic changes appreciated. - There are large fluid levels within the left maxillary sinus and within the right frontal sinus the can be correlated for clinical signs of acute sinusitis. - A peripherally ossified structure extending from the dorsal margin of the right nasolacrimal duct into the right maxillary sinus is stable when compared to examinations dated back to 08/24/2008 favoring a benign etiology. Medications Medications Current Medications Acetaminophen (Acetaminophen 325 Mg Tablet) 1,000 mg PO Q6H PRN PRN Reason: Headache/Pain Mild Scale (1-3) Last Admin: 02/03/23 11:30 Dose: 1,000 mg Albuterol Sulfate (Albuterol Sulfate 90 Mcg 8 Gm Inhaler) 2 puff INHALE Q6H PRN PRN Reason: Wheezing Alprazolam (Alprazolam 0.5 Mg Tablet) 0.5 mg PO BEDTIME [facility] Last Admin: 02/02/23 23:26 Dose: 0.5 mg Alprazolam (Alprazolam 0.25 Mg Tablet) 0.25 mg PO Q4H PRN PRN Reason: Anxiety Last Admin: 02/03/23 11:25 Dose: 0.25 mg Amlodipine Besylate (Amlodipine Besylate 5 Mg Tablet) 5 mg PO DAILY [facility]; Protocol Last Admin: 02/03/23 11:15 Dose: 5 mg Bisacodyl (Bisacodyl 10 Mg Supp.Rect) [address] DAILY PRN PRN Reason: Constipation Divalproex Sodium (Divalproex Sodium Sprinkles 125 Mg ) 375 mg PO BID [facility] Last Admin: 02/03/23 11:15 Dose: 375 mg Fluticasone Propionate (Fluticasone Propionate Nasal 16 Gm Cable) 1 spray NOSTRIL-B BID [facility] Last Admin: 02/03/23 11:25 Dose: Not Given Gabapentin (Gabapentin 100 Mg Capsule) 100 mg PO TID [facility] Last Admin: 02/03/23 15:38 Dose: 100 mg Guaifenesin (Guaifenesin [place] 600 Mg Tab.Er.12h) 600 mg PO BID [facility] Last Admin: 02/03/23 11:15 Dose: 600 mg Hydroxyzine HCl (Hydroxyzine Hcl 50 Mg Tablet) 50 mg PO Q4H PRN PRN Reason: Anxiety Last Admin: 01/26/23 14:12 Dose: 50 mg Ibuprofen (Ibuprofen 600 Mg Tablet) 600 mg PO Q6H PRN PRN Reason: Pain, Moderate (Pain Scale 4-6 Last Admin: 01/31/23 21:14 Dose: 600 mg Lamotrigine (Lamotrigine 100 Mg Tablet) 100 mg PO BID [facility] Last Admin: 02/03/23 11:15 Dose: 100 mg Latanoprost (Latanoprost 0.005 % Ophth No 2.5 Ml Drops) 1 drop EYE-BOTH BEDTIME [facility] Last Admin: 02/02/23 23:34 Dose: 1 drop Lidocaine (Lidocaine 4 % Patch Adh..Patch) 1 patch TRANSDERMA DAILY [facility]; Protocol Last Admin: 02/03/23 11:25 Dose: Not Given Lidocaine (Lidocaine 5 % Ointment 35 Gm) 1 appl TOPICAL Q6H PRN; Protocol PRN Reason: Hemorrhoid pain Last Admin: 02/02/23 23:36 Dose: 1 appl Multi-Ingred Cream/Lotion/Oil/Oint (Mineral Oil/Petrolatum,White 106 Gm Tube) 1 appl TOPICAL BID PRN; Protocol PRN Reason: dry skin Nortriptyline HCl (Nortriptyline Hcl 25 Mg Capsule) 50 mg PO BEDTIME [facility] Last Admin: 02/02/23 23:25 Dose: 50 mg Nystatin (Nystatin Powder 15 Gm Bottle) 1 appl TOPICAL BID [facility]; Protocol Last Admin: 02/03/23 11:25 Dose: 1 appl Olanzapine (Olanzapine 2.5 Mg Tablet) 2.5 mg PO DAILY [facility] Last Admin: 02/03/23 11:15 Dose: 2.5 mg Olanzapine (Olanzapine 2.5 Mg Tablet) 2.5 mg PO DAILY@1500 [facility] Last Admin: 02/03/23 15:38 Dose: 2.5 mg Olanzapine (Olanzapine 5 Mg Tablet) 5 mg PO BEDTIME [facility] Last Admin: 02/02/23 23:32 Dose: 5 mg Ondansetron HCl (Ondansetron Odt 4 Mg Tab.Rapdis) 4 mg TRANSLINGU Q6H PRN PRN Reason: Nausea and Vomiting Last Admin: 01/11/23 08:34 Dose: 4 mg Polyethylene Glycol (Polyethylene Glycol 3350 17 Gm Powd.Pack) 17 gm PO BID [facility] Last Admin: 02/03/23 11:16 Dose: Not Given Senna/Docusate Sodium (Sennosides/Docusate Sodium Tablet) 2 tab PO BID [facility] Last Admin: 02/03/23 11:15 Dose: 2 tab Sodium Biphosphate/Sodium Phosphate (Sodium Phosphate,[place]-Dibasic 133 Ml Enema) [address] ONCE PRN PRN Reason: Constipation Sodium Chloride (Sodium Chloride 0.65 % Nasal 44 Ml Sprbtl) 1 spray NOSTRIL-B Q1H PRN PRN Reason: Nasal Congestion Last Admin: 02/01/23 08:46 Dose: 1 spray Tamsulosin HCl (Tamsulosin Hcl 0.4 Mg Capsule) 0.4 mg PO DAILY [facility] Last Admin: 02/03/23 11:15 Dose: 0.4 mg Trazodone HCl (Trazodone Hcl 100 Mg Tablet) 200 mg PO BEDTIME [facility] Last Admin: 02/02/23 23:31 Dose: 200 mg Venlafaxine HCl (Venlafaxine Hcl Er 75 Mg Cap.Er.24h) 75 mg PO DAILY [facility] Last Admin: 02/03/23 11:16 Dose: 75 mg Allergies Allergies Allergy/AdvReac Type Severity Reaction Status Date / Time fentanyl [FENTANYL] Allergy Intermediate unknown Verified 04/08/22 07:00 Assessment & Plan Assessment & Plan (1) Major depressive disorder, recurrent severe without psychotic features: Status: Acute Code(s): F33.2 - Major depressive disorder, recurrent severe without psychotic features (2) Cognitive and neurobehavioral dysfunction following brain injury: Status: Acute Code(s): G31.89 - Other specified degenerative diseases of nervous system; F09 - Unspecified mental disorder due to known physiological condition; S06.9X9S - Unspecified intracranial injury with loss of consciousness of unspecified duration, sequela (3) Swallowing dysfunction: Status: Acute Code(s): R13.10 - Dysphagia, unspecified (4) Personality disorder in adult: Status: Acute Code(s): F60.9 - Personality disorder, unspecified Plan Patient seems minimally less labile with olanzapine during the day and alprazolam to decrease irritability reactivity monitor for over sedation continue discharge planning Encourage daily strength training lower Effexor to 75 mg in case it is overly stimulating the patient to increased reactivity Start Depakote 125 mg twice a day will start gradually for mood instability 01/05: Continue current plans and regimen 01/06/2023 Patient feels better on Depakote increase Depakote to 125 t.i.d. lower Lamictal 01/07/2023 Increase Depakote to 250 b.i.d. secondary to anxiety reviewed cognitive behavioral strategies 01/08/23 pt seems improved with depakote cont plan of care 01/09/23 Pt seen in f/u mood improved encourage inc perspective cbt skills 01/11: Continue tx plan. 01/12/23 Monitor medical safety ck o 2 isolation cont meds otherwise 2022 Continue Effexor Depakote Lamictal monitor patient for more acute COVID symptoms continue isolation 01/14/2023 Continue plan of care encourage coping strategies reading Increase Depakote 375 mg twice a day Depakote level 40 to encourage CBT strategies continue continue isolation 01/15/23 cont plan of care 01/16/2023 Patient needs much reassurance and support continue medication encourage perspective coping strategies 01/17/2023 Continue plan of care 01/18/2023 Continue to monitor response to need for isolation and recent COVID 01/19/23 Pt seen in f/u mood depressed agitated inc depakote inc zyprexa for mood stability 01/20/2023 Patient seen in follow-up less depressed less labile continue difficulty with isolation 01/21/2023 Patient seen in follow-up gradually improving coping better using more relaxation and cognitive techniques including music 01/22/23 cont plan of care off isolation d/c planning c/o pain r nasal orbital ridge 01/23/2023 CT orbital scan consult Dr. Casarez continue medications otherwise 01/24 reports right periorobital discomfort; added nasal saline drops; discussed with Dr. Mayberry who recs augmentin bid for 7 days if continued discomfort 01/25 continue with comfort medication; primary team to reassess whether not to start antibiotic for acute sinusitis 01/26 continue current tx. 01/27/2023 Continue plan of care discharge planning. 01/28 Continue with same treatment 01/29/2023 Continue plan of care start nasal steroid for sinusitis drainage pre consult medicine if needed Saline nasal spray p.r.n. 01/30 continue with same treatment. 01/31 continue same treatment 02/01 continue same treatment 02/02/2023 Discussed issues related to right frontal head injury ways to maintain equanimity. Continue Depakote tapering Lamictal at higher doses Effexor not effective 02/03/2023 Continue plan of care discharge planning with [facility] and [facility] at this point no lower level of care Patient educated on: diagnosis, medication risk/benefits and therapeutic strategies Reason for contiued inpatient stay Substantial Risk for: inability to function and rapid decompensation Time Spent With Patient Time: Total time managing care of this patient today _28___ minutes.
[2023-02-03 18:00] VITALS: BP 132/77; PULSE 80; RESP 16; TEMP 36.4; O2SAT 95
[2023-02-03] MEDS: Nortriptyline HCl 25 MG CAPSULE 50 MG PO (22:00)
[2023-02-03] MEDS: OLANZapine 5 MG TABLET PO (22:02)
[2023-02-03] MEDS: ALPRAZolam 0.5 MG TABLET PO (22:03)
[2023-02-03] MEDS: traZODone HCL 100 MG TABLET 200 MG PO (22:03)
[2023-02-03] MEDS: Latanoprost 0.005 % Ophth Sol 2.5 ML DROPS 1 DROP EYE-BOTH (22:12)
[2023-02-03] MEDS: Fluticasone Propionate Nasal 16 GM SPRAY 1 SPRAY NOSTRIL-B (22:12)
[2023-02-04] MEDS: Tamsulosin HCL 0.4 MG CAPSULE PO (08:29)
[2023-02-04 08:30] VITALS: BP 134/68; PULSE 77; RESP 18; TEMP 36.1; O2SAT 95
[2023-02-04] MEDS: Venlafaxine HCl ER 75 MG CAP.ER.24H PO (08:30)
[2023-02-04] MEDS: amLODIPine Besylate 5 MG TABLET PO (08:30)
[2023-02-04] MEDS: OLANZapine 2.5 MG TABLET PO ×2 (08:30→14:36)
[2023-02-04] MEDS: Gabapentin 100 MG CAPSULE PO ×3 (08:31→21:20)
[2023-02-04] MEDS: lamoTRIgine 100 MG TABLET PO ×2 (08:31→21:20)
[2023-02-04] MEDS: Divalproex Sodium Sprinkles 125 MG CAP.DR.SPR 375 MG PO ×2 (08:32→21:19)
--- NOTE | 2023-02-04 11:05 | P.PNPSI_ITS ---
Subjective Subjective Date of Service: 02/04/23 Reason For Visit: Depression hopelessness irritability Subjective Notes: Conditional Voluntary Interim History: The nursing staff reported the patient slept well last night, he has been eating his breakfast with no problems. The social services assistant reported that the detention will be probably available in April 16. On interview the patient denies new symptoms. Mental Status Exam Mental Status Exam Patient Appearance: Well Grooomed and Appropriate Patient Orientation: Person, Place and Situation Level of Consciousness: Awake and Appropriate Patient Behavior: Cooperative and Passive Mood Description: Calm Affect Description: Constricted Patient Cognition Impaired: Yes Ability to Follow Directions: Good Speech Pattern: Clear Hallucinations: None Delusions: Not Present Thought Process: Evasive and Slowed Thinking Thought Content: positive for [place] Oriented Judgement: Fair Diagnostics Vital Signs (24Hr): Vital Signs - 24 hr 02/03/23 18:00 02/04/23 08:30 Temperature 97.5 F 97.0 F Pulse Rate 80 77 Respiratory Rate 16 18 Blood Pressure 132/77 134/68 Pulse Oximetry 95 95 Oxygen Delivery Method Room Air Room Air BMI result Body Mass Index 30.2 Labs 11/13/22 07:43 11/12/22 09:32 Imaging Radiology Impressions: ITS Impressions Chest X-Ray 10/20/22 15:45 IMPRESSION: 1. Low lung volumes with bibasilar linear disc atelectasis versus scarring. 2. No airspace consolidation or effusion. Head CT 11/08/22 12:29 IMPRESSION: No acute intracranial hemorrhage or territorial infarction. Stable chronic postoperative changes with gliosis and encephalomalacia in the right frontal and right temporal lobes. Ex vacuo dilatation of the ventricles and diffuse parenchymal volume loss. Right-sided craniotomy changes. Chest X-Ray 11/12/22 10:32 IMPRESSION: Hypoexpanded lungs with bibasilar platelike atelectasis. Brain MRI 11/12/22 13:15 IMPRESSION: 1. No demonstrated acute intracranial abnormalities. 2. Chronic encephalomalacia of the right temporal, right frontal, and left occipital lobes. Small regions of chronic encephalomalacia in the parasagittal aspects of the bilateral parietal lobes. Moderate underlying microangiopathy and generalized cerebral volume loss. Chest X-Ray 11/14/22 15:52 IMPRESSION: Low lung volumes, bibasilar subsegmental atelectasis and slight elevation of the right hemidiaphragm similar to previous exam. Modified Barium Swallow 11/21/22 15:11 IMPRESSION: Laryngeal penetration on several occasions but no laryngeal aspiration. Mild retention of solid food in the valleculae which cleared with subsequent oral administration of water or thin barium. Correlate with speech therapy results. Orbit CT 01/23/23 14:05 IMPRESSION: - No definite significant intraorbital soft tissue findings to assessment is limited on a noncontrast CT of the orbits. No retrobulbar mass lesions and no cellulitic changes appreciated. - There are large fluid levels within the left maxillary sinus and within the right frontal sinus the can be correlated for clinical signs of acute sinusitis. - A peripherally ossified structure extending from the dorsal margin of the right nasolacrimal duct into the right maxillary sinus is stable when compared to examinations dated back to 08/24/2008 favoring a benign etiology. Medications Medications Current Medications Acetaminophen (Acetaminophen 325 Mg Tablet) 1,000 mg PO Q6H PRN PRN Reason: Headache/Pain Mild Scale (1-3) Last Admin: 02/03/23 22:07 Dose: 1,000 mg Albuterol Sulfate (Albuterol Sulfate 90 Mcg 8 Gm Inhaler) 2 puff INHALE Q6H PRN PRN Reason: Wheezing Alprazolam (Alprazolam 0.5 Mg Tablet) 0.5 mg PO BEDTIME [facility] Last Admin: 02/03/23 22:03 Dose: 0.5 mg Alprazolam (Alprazolam 0.25 Mg Tablet) 0.25 mg PO Q4H PRN PRN Reason: Anxiety Last Admin: 02/03/23 11:25 Dose: 0.25 mg Amlodipine Besylate (Amlodipine Besylate 5 Mg Tablet) 5 mg PO DAILY [facility]; Protocol Last Admin: 02/04/23 08:30 Dose: 5 mg Bisacodyl (Bisacodyl 10 Mg Supp.Rect) [address] DAILY PRN PRN Reason: Constipation Divalproex Sodium (Divalproex Sodium Sprinkles 125 Mg ) 375 mg PO BID [facility] Last Admin: 02/04/23 08:32 Dose: 375 mg Gabapentin (Gabapentin 100 Mg Capsule) 100 mg PO TID [facility] Last Admin: 02/04/23 08:31 Dose: 100 mg Hydroxyzine HCl (Hydroxyzine Hcl 50 Mg Tablet) 50 mg PO Q4H PRN PRN Reason: Anxiety Last Admin: 01/26/23 14:12 Dose: 50 mg Ibuprofen (Ibuprofen 600 Mg Tablet) 600 mg PO Q6H PRN PRN Reason: Pain, Moderate (Pain Scale 4-6 Last Admin: 01/31/23 21:14 Dose: 600 mg Lamotrigine (Lamotrigine 100 Mg Tablet) 100 mg PO BID [facility] Last Admin: 02/04/23 08:31 Dose: 100 mg Latanoprost (Latanoprost 0.005 % Ophth No 2.5 Ml Drops) 1 drop EYE-BOTH BEDTIME [facility] Last Admin: 02/03/23 22:12 Dose: 1 drop Lidocaine (Lidocaine 5 % Ointment 35 Gm) 1 appl TOPICAL Q6H PRN; Protocol PRN Reason: Hemorrhoid pain Last Admin: 02/02/23 23:36 Dose: 1 appl Multi-Ingred Cream/Lotion/Oil/Oint (Mineral Oil/Petrolatum,White 106 Gm Tube) 1 appl TOPICAL BID PRN; Protocol PRN Reason: dry skin Nortriptyline HCl (Nortriptyline Hcl 25 Mg Capsule) 50 mg PO BEDTIME [facility] Last Admin: 02/03/23 22:00 Dose: 50 mg Nystatin (Nystatin Powder 15 Gm Bottle) 1 appl TOPICAL BID [facility]; Protocol Last Admin: 02/03/23 22:59 Dose: 1 appl Olanzapine (Olanzapine 2.5 Mg Tablet) 2.5 mg PO DAILY [facility] Last Admin: 02/04/23 08:30 Dose: 2.5 mg Olanzapine (Olanzapine 2.5 Mg Tablet) 2.5 mg PO DAILY@1500 [facility] Last Admin: 02/03/23 15:38 Dose: 2.5 mg Olanzapine (Olanzapine 5 Mg Tablet) 5 mg PO BEDTIME [facility] Last Admin: 02/03/23 22:02 Dose: 5 mg Ondansetron HCl (Ondansetron Odt 4 Mg Tab.Rapdis) 4 mg TRANSLINGU Q6H PRN PRN Reason: Nausea and Vomiting Last Admin: 01/11/23 08:34 Dose: 4 mg Polyethylene Glycol (Polyethylene Glycol 3350 17 Gm Powd.Pack) 17 gm PO BID [facility] Last Admin: 02/04/23 09:35 Dose: Not Given Senna/Docusate Sodium (Sennosides/Docusate Sodium Tablet) 2 tab PO BEDTIME [facility] Sodium Biphosphate/Sodium Phosphate (Sodium Phosphate,[place]-Dibasic 133 Ml Enema) [address] ONCE PRN PRN Reason: Constipation Sodium Chloride (Sodium Chloride 0.65 % Nasal 44 Ml Sprbtl) 1 spray NOSTRIL-B Q1H PRN PRN Reason: Nasal Congestion Last Admin: 02/01/23 08:46 Dose: 1 spray Tamsulosin HCl (Tamsulosin Hcl 0.4 Mg Capsule) 0.4 mg PO DAILY [facility] Last Admin: 02/04/23 08:29 Dose: 0.4 mg Trazodone HCl (Trazodone Hcl 100 Mg Tablet) 200 mg PO BEDTIME [facility] Last Admin: 02/03/23 22:03 Dose: 200 mg Venlafaxine HCl (Venlafaxine Hcl Er 75 Mg Cap.Er.24h) 75 mg PO DAILY [facility] Last Admin: 02/04/23 08:30 Dose: 75 mg Allergies Allergies Allergy/AdvReac Type Severity Reaction Status Date / Time fentanyl [FENTANYL] Allergy Intermediate unknown Verified 04/08/22 07:00 Assessment & Plan Assessment & Plan (1) Major depressive disorder, recurrent severe without psychotic features: Status: Acute Code(s): F33.2 - Major depressive disorder, recurrent severe without psychotic features (2) Cognitive and neurobehavioral dysfunction following brain injury: Status: Acute Code(s): G31.89 - Other specified degenerative diseases of nervous system; F09 - Unspecified mental disorder due to known physiological condition; S06.9X9S - Unspecified intracranial injury with loss of consciousness of unspecified duration, sequela (3) Swallowing dysfunction: Status: Acute Code(s): R13.10 - Dysphagia, unspecified (4) Personality disorder in adult: Status: Acute Code(s): F60.9 - Personality disorder, unspecified Plan The patient is a middle-age male with a past history of major depressive disorder, alcohol use disorder, TBI admitted for suicidality. He had been in the facility sterile times in the last year. Plan 1. Continue with same treatment. 2. Waiting for placement Reason for contiued inpatient stay Substantial Risk for: inability to function, rapid decompensation and med/psych decompensation Time Spent With Patient Time: Total time managing care of this patient today __20__ minutes.
[2023-02-04] MEDS: Nystatin Powder 15 GM BOTTLE 1 APPL TOPICAL ×2 (13:42→22:09)
[2023-02-04] MEDS: Sodium Chloride 0.65 % Nasal 44 ML SPRBTL 1 SPRAY NOSTRIL-B (13:50)
--- NOTE | 2023-02-04 14:52 | MHC.SL.SWA ---
Addendum entered and electronically signed by Maddy Harris MA, [facility]-DATA COORDINATOR 02/05/23 15:50: D.S. Original Note: Addendum entered and electronically signed by WANG Cortés 02/05/23 08:50: SW Original Note: Speech Pathologist Impression: Oropharyngeal Dysphagia Risk of Aspiration Due to: Neurological Condition Reduced Cognition Dysphasia Diet Status: Recommend continue on REGULAR diet with THIN liquids, Pills whole with liquids or puree as preferred by patient. Liquid Consistency and Strategies for Safe Swallow: Liquid Intake Recommendation: Thin Liquid Intake Strategies: No Straws Double Swallow Solid Food Consistency: Dietary Recommendations: Regular Additional Modifications to Solid Foods: Cue patient to double swallow (dry swallow), particularly on sticky or harder to chew consistencies. Alternate liquids and solids. Oral Medication Intake: Pills whole with liquids or puree as preferred by patient Please contact the pharmacy regarding appropriate crushable or liquid drug formulations that are available whenever modified delivery is recommended. Compensatory Strategies and Precautions to be Taken for Safe Swallow: Sitting Upright (90 deg) Double Swallow No Straw Small Bites and Sips Alternate Liquids/Solids Rate of Ingestion Change Avoid Specific Foods Supervision While Eating and Drinking for Safe Swallow: Intermittent Supervision Foods to Avoid: Hard to chew solids (e.g. solid pieces of meat), dry consistencies that break into pieces (e.g. cookies, crackers, chips, nuts), mixed solid consistencies that require ample chewing (e.g. green salads), rice. Swallowing Recommended Treatments: Compens. Strategy Educat. Recommendation for Speech: D/c from inpatient DATA COORDINATOR tx on 02/04/23 Patient seen on this date following lunch meal for check-in and continued education. Based on conversations with RN, patient, and DATA COORDINATOR team, recommend patient to be discharged from DATA COORDINATOR dysphagia tx at this time. RN and patient agreeable to d/c from DATA COORDINATOR services at this time. Pt requested additional cue card for safe swallowing strategies and printed copy of MBSS report. DATA COORDINATOR to deliver these to patient on this date. Hospitalist updated via [facility]. If patient or medical team observes increased difficulty swallowing, please order re-evaluation. Patient is recommend continue on REGULAR diet with THIN liquids, Pills whole with liquids or puree as preferred by patient. Refer to Nov 2022 MBSS report for full list of recommended strategies. Chemical Reclamation Equipment Operator Clinican/Clinical Fellow: Yes: Bridget Martinez M.A., [facility]-DATA COORDINATOR
[2023-02-04] MEDS: Lidocaine 5 % Ointment 35 GM 1 APPL TOPICAL (16:18)
[2023-02-04 18:00] VITALS: BP 123/66; PULSE 80; RESP 16; TEMP 36.6; O2SAT 96
[2023-02-04] MEDS: Sennosides/Docusate Sodium TABLET 2 TAB PO (20:14)
[2023-02-04] MEDS: polyethylene glycoL 3350 17 GM POWD.PACK PO (20:15)
[2023-02-04] MEDS: Nortriptyline HCl 25 MG CAPSULE 50 MG PO (21:18)
[2023-02-04] MEDS: traZODone HCL 100 MG TABLET 200 MG PO (21:18)
[2023-02-04] MEDS: ALPRAZolam 0.5 MG TABLET PO (21:19)
[2023-02-04] MEDS: OLANZapine 5 MG TABLET PO (21:20)
[2023-02-04] MEDS: Acetaminophen 325 MG TABLET 1000 MG PO (21:21)
[2023-02-04] MEDS: Latanoprost 0.005 % Ophth Sol 2.5 ML DROPS 1 DROP EYE-BOTH (21:42)
[2023-02-05 06:00] VITALS: BP 138/67; PULSE 81; RESP 16; TEMP 36.8; O2SAT 96
[2023-02-05] MEDS: Acetaminophen 325 MG TABLET 1000 MG PO (06:59)
[2023-02-05 07:00] VITALS: BMI 31.0
[2023-02-05] MEDS: amLODIPine Besylate 5 MG TABLET PO (10:41)
[2023-02-05] MEDS: OLANZapine 2.5 MG TABLET PO ×2 (10:41→16:03)
[2023-02-05] MEDS: Tamsulosin HCL 0.4 MG CAPSULE PO (10:41)
[2023-02-05] MEDS: Gabapentin 100 MG CAPSULE PO ×3 (10:41→21:09)
[2023-02-05] MEDS: Divalproex Sodium Sprinkles 125 MG CAP.DR.SPR 375 MG PO ×2 (10:41→21:08)
[2023-02-05] MEDS: Venlafaxine HCl ER 75 MG CAP.ER.24H PO (10:41)
[2023-02-05] MEDS: lamoTRIgine 100 MG TABLET PO ×2 (10:42→21:10)
[2023-02-05] MEDS: polyethylene glycoL 3350 17 GM POWD.PACK PO (10:44)
[2023-02-05] MEDS: Nystatin Powder 15 GM BOTTLE 1 APPL TOPICAL (10:45)
--- NOTE | 2023-02-05 13:23 | P.PNPSI_ITS ---
Subjective Subjective Date of Service: 02/05/23 Reason For Visit: Depression hopelessness irritability Subjective Notes: Conditional Voluntary Interim History: The staff reported the patient had been able to participate in groups, he complained of back pain. The social services reported they are waiting for the group homes response for specific date of the transfer. On interview the patient denies new symptoms. Mental Status Exam Mental Status Exam Patient Appearance: Well Grooomed Patient Orientation: Person and Situation Level of Consciousness: Awake and Appropriate Patient Behavior: Guarded and Passive Mood Description: Withdrawn Affect Description: Constricted Patient Cognition Impaired: No Ability to Follow Directions: Good Speech Pattern: Clear Memory Description: Intact Hallucinations: None Delusions: Not Present Thought Process: Linear Thought Content: positive for [place] Judgement: Fair Diagnostics Vital Signs (24Hr): Vital Signs - 24 hr 02/04/23 18:00 02/05/23 06:00 Temperature 97.9 F 98.2 F Pulse Rate 80 81 Respiratory Rate 16 16 Blood Pressure 123/66 138/67 Pulse Oximetry 96 96 Oxygen Delivery Method Room Air Room Air BMI result Body Mass Index 31.0 Labs 11/13/22 07:43 11/12/22 09:32 Imaging Radiology Impressions: ITS Impressions Chest X-Ray 10/20/22 15:45 IMPRESSION: 1. Low lung volumes with bibasilar linear disc atelectasis versus scarring. 2. No airspace consolidation or effusion. Head CT 11/08/22 12:29 IMPRESSION: No acute intracranial hemorrhage or territorial infarction. Stable chronic postoperative changes with gliosis and encephalomalacia in the right frontal and right temporal lobes. Ex vacuo dilatation of the ventricles and diffuse parenchymal volume loss. Right-sided craniotomy changes. Chest X-Ray 11/12/22 10:32 IMPRESSION: Hypoexpanded lungs with bibasilar platelike atelectasis. Brain MRI 11/12/22 13:15 IMPRESSION: 1. No demonstrated acute intracranial abnormalities. 2. Chronic encephalomalacia of the right temporal, right frontal, and left occipital lobes. Small regions of chronic encephalomalacia in the parasagittal aspects of the bilateral parietal lobes. Moderate underlying microangiopathy and generalized cerebral volume loss. Chest X-Ray 11/14/22 15:52 IMPRESSION: Low lung volumes, bibasilar subsegmental atelectasis and slight elevation of the right hemidiaphragm similar to previous exam. Modified Barium Swallow 11/21/22 15:11 IMPRESSION: Laryngeal penetration on several occasions but no laryngeal aspiration. Mild retention of solid food in the valleculae which cleared with subsequent oral administration of water or thin barium. Correlate with speech therapy results. Orbit CT 01/23/23 14:05 IMPRESSION: - No definite significant intraorbital soft tissue findings to assessment is limited on a noncontrast CT of the orbits. No retrobulbar mass lesions and no cellulitic changes appreciated. - There are large fluid levels within the left maxillary sinus and within the right frontal sinus the can be correlated for clinical signs of acute sinusitis. - A peripherally ossified structure extending from the dorsal margin of the right nasolacrimal duct into the right maxillary sinus is stable when compared to examinations dated back to 08/24/2008 favoring a benign etiology. Medications Medications Current Medications Acetaminophen (Acetaminophen 325 Mg Tablet) 1,000 mg PO Q6H PRN PRN Reason: Headache/Pain Mild Scale (1-3) Last Admin: 02/05/23 06:59 Dose: 1,000 mg Albuterol Sulfate (Albuterol Sulfate 90 Mcg 8 Gm Inhaler) 2 puff INHALE Q6H PRN PRN Reason: Wheezing Alprazolam (Alprazolam 0.5 Mg Tablet) 0.5 mg PO BEDTIME [facility] Last Admin: 02/04/23 21:19 Dose: 0.5 mg Alprazolam (Alprazolam 0.25 Mg Tablet) 0.25 mg PO Q4H PRN PRN Reason: Anxiety Last Admin: 02/03/23 11:25 Dose: 0.25 mg Amlodipine Besylate (Amlodipine Besylate 5 Mg Tablet) 5 mg PO DAILY [facility]; Protocol Last Admin: 02/05/23 10:41 Dose: 5 mg Bisacodyl (Bisacodyl 10 Mg Supp.Rect) 10 mg [place] DAILY PRN PRN Reason: Constipation Divalproex Sodium (Divalproex Sodium Sprinkles 125 Mg ) 375 mg PO BID [facility] Last Admin: 02/05/23 10:41 Dose: 375 mg Gabapentin (Gabapentin 100 Mg Capsule) 100 mg PO TID [facility] Last Admin: 02/05/23 10:41 Dose: 100 mg Hydroxyzine HCl (Hydroxyzine Hcl 50 Mg Tablet) 50 mg PO Q4H PRN PRN Reason: Anxiety Last Admin: 01/26/23 14:12 Dose: 50 mg Ibuprofen (Ibuprofen 600 Mg Tablet) 600 mg PO Q6H PRN PRN Reason: Pain, Moderate (Pain Scale 4-6 Last Admin: 01/31/23 21:14 Dose: 600 mg Lamotrigine (Lamotrigine 100 Mg Tablet) 100 mg PO BID [facility] Last Admin: 02/05/23 10:42 Dose: 100 mg Latanoprost (Latanoprost 0.005 % Ophth No 2.5 Ml Drops) 1 drop EYE-BOTH BEDTIME [facility] Last Admin: 02/04/23 21:42 Dose: 1 drop Lidocaine (Lidocaine 5 % Ointment 35 Gm) 1 appl TOPICAL Q6H PRN; Protocol PRN Reason: Hemorrhoid pain Last Admin: 02/04/23 16:18 Dose: 1 appl Multi-Ingred Cream/Lotion/Oil/Oint (Mineral Oil/Petrolatum,White 106 Gm Tube) 1 appl TOPICAL BID PRN; Protocol PRN Reason: dry skin Nortriptyline HCl (Nortriptyline Hcl 25 Mg Capsule) 50 mg PO BEDTIME [facility] Last Admin: 02/04/23 21:18 Dose: 50 mg Nystatin (Nystatin Powder 15 Gm Bottle) 1 appl TOPICAL BID TAZ; Protocol Last Admin: 02/05/23 10:45 Dose: 1 appl Olanzapine (Olanzapine 2.5 Mg Tablet) 2.5 mg PO DAILY [facility] Last Admin: 02/05/23 10:41 Dose: 2.5 mg Olanzapine (Olanzapine 2.5 Mg Tablet) 2.5 mg PO DAILY@1500 [facility] Last Admin: 02/04/23 14:36 Dose: 2.5 mg Olanzapine (Olanzapine 5 Mg Tablet) 5 mg PO BEDTIME [facility] Last Admin: 02/04/23 21:20 Dose: 5 mg Ondansetron HCl (Ondansetron Odt 4 Mg Tab.Rapdis) 4 mg TRANSLINGU Q6H PRN PRN Reason: Nausea and Vomiting Last Admin: 01/11/23 08:34 Dose: 4 mg Polyethylene Glycol (Polyethylene Glycol 3350 17 Gm Powd.Pack) 17 gm PO BID [facility] Last Admin: 02/05/23 10:44 Dose: 17 gm Senna/Docusate Sodium (Sennosides/Docusate Sodium Tablet) 2 tab PO BEDTIME [facility] Last Admin: 02/04/23 20:14 Dose: 2 tab Sodium Biphosphate/Sodium Phosphate (Sodium Phosphate,[place]-Dibasic 133 Ml Enema) 133 ml [place] ONCE PRN PRN Reason: Constipation Sodium Chloride (Sodium Chloride 0.65 % Nasal 44 Ml Sprbtl) 1 spray NOSTRIL-B Q1H PRN PRN Reason: Nasal Congestion Last Admin: 02/04/23 13:50 Dose: 1 spray Tamsulosin HCl (Tamsulosin Hcl 0.4 Mg Capsule) 0.4 mg PO DAILY [facility] Last Admin: 02/05/23 10:41 Dose: 0.4 mg Trazodone HCl (Trazodone Hcl 100 Mg Tablet) 200 mg PO BEDTIME [facility] Last Admin: 02/04/23 21:18 Dose: 200 mg Venlafaxine HCl (Venlafaxine Hcl Er 75 Mg Cap.Er.24h) 75 mg PO DAILY [facility] Last Admin: 02/05/23 10:41 Dose: 75 mg Allergies Allergies Allergy/AdvReac Type Severity Reaction Status Date / Time fentanyl [FENTANYL] Allergy Intermediate unknown Verified 04/08/22 07:00 Assessment & Plan Assessment & Plan (1) Major depressive disorder, recurrent severe without psychotic features: Status: Acute Code(s): F33.2 - Major depressive disorder, recurrent severe without psychotic features (2) Cognitive and neurobehavioral dysfunction following brain injury: Status: Acute Code(s): G31.89 - Other specified degenerative diseases of nervous system; F09 - Unspecified mental disorder due to known physiological condition; S06.9X9S - Unspecified intracranial injury with loss of consciousness of unspecified duration, sequela (3) Swallowing dysfunction: Status: Acute Code(s): R13.10 - Dysphagia, unspecified (4) Personality disorder in adult: Status: Acute Code(s): F60.9 - Personality disorder, unspecified Plan The patient is a middle-age male with a past history of major depressive disorder, alcohol use disorder, TBI admitted for suicidality. He had been in the facility sterile times in the last year. Plan 1. Continue with same treatment. 2. Waiting for placement Reason for contiued inpatient stay Substantial Risk for: inability to function, rapid decompensation and med/psych decompensation Time Spent With Patient Time: Total time managing care of this patient today __20__ minutes.
[2023-02-05 20:06] VITALS: BP 154/76; PULSE 76; RESP 18; TEMP 36.4
[2023-02-05] MEDS: Latanoprost 0.005 % Ophth Sol 2.5 ML DROPS 1 DROP EYE-BOTH (21:07)
[2023-02-05] MEDS: traZODone HCL 100 MG TABLET 200 MG PO (21:07)
[2023-02-05] MEDS: Sennosides/Docusate Sodium TABLET 2 TAB PO (21:08)
[2023-02-05] MEDS: Nortriptyline HCl 25 MG CAPSULE 50 MG PO (21:09)
[2023-02-05] MEDS: ALPRAZolam 0.5 MG TABLET PO (21:10)
[2023-02-05] MEDS: OLANZapine 5 MG TABLET PO (21:10)
[2023-02-06] MEDS: Acetaminophen 325 MG TABLET 1000 MG PO (07:00)
[2023-02-06 08:40] VITALS: BP 168/89; PULSE 79; RESP 16; TEMP 36.2; O2SAT 95
[2023-02-06] MEDS: Divalproex Sodium Sprinkles 125 MG CAP.DR.SPR 375 MG PO ×2 (08:44→22:08)
[2023-02-06] MEDS: Venlafaxine HCl ER 75 MG CAP.ER.24H PO (08:45)
[2023-02-06] MEDS: lamoTRIgine 100 MG TABLET PO ×2 (08:46→22:09)
[2023-02-06] MEDS: amLODIPine Besylate 5 MG TABLET PO (08:46)
[2023-02-06] MEDS: Gabapentin 100 MG CAPSULE PO ×3 (08:46→22:08)
[2023-02-06] MEDS: Tamsulosin HCL 0.4 MG CAPSULE PO (08:47)
[2023-02-06] MEDS: OLANZapine 2.5 MG TABLET PO ×2 (08:47→14:20)
[2023-02-06] MEDS: polyethylene glycoL 3350 17 GM POWD.PACK PO (08:49)
[2023-02-06] MEDS: Nystatin Powder 15 GM BOTTLE 1 APPL TOPICAL (10:43)
--- NOTE | 2023-02-06 16:16 | P.PNPSI_ITS ---
Subjective Subjective Date of Service: 02/06/23 Reason For Visit: Depression hopelessness irritability Subjective Notes: Conditional Voluntary Interim History: Pt reports he is eager to be discharged soon, He presents as very future oriented and much more optimistic in that he states he would like to see friends. He notes that he has come a long way. He denies SI/HI. No behavioral concerns, although he at times be demanding if needs not met but no overt behavi oral concerns. Mental Status Exam Mental Status Exam Narrative: Patient Appearance: Appropriate Patient Orientation: Person, Place, Time and Situation Level of Consciousness: Awake Patient Behavior: Appropriate Behavior Comments: Mood Description: Appropriate and Constricted Affect Description: Constricted, Depressed and Apprehensive Patient Cognition Impaired: Yes Ability to Follow Directions: Good Speech Pattern: Clear Memory Description: Episodic Impaired and Working Impaired Diagnostics Vital Signs (24Hr): Vital Signs - 24 hr 02/05/23 20:06 02/06/23 08:40 Temperature 97.5 F 97.1 F Pulse Rate 76 79 Respiratory Rate 18 16 Blood Pressure 154/76 H 168/89 H Pulse Oximetry 95 Oxygen Delivery Method Room Air BMI result Body Mass Index 31.0 Labs 11/13/22 07:43 11/12/22 09:32 Imaging Radiology Impressions: ITS Impressions Chest X-Ray 10/20/22 15:45 IMPRESSION: 1. Low lung volumes with bibasilar linear disc atelectasis versus scarring. 2. No airspace consolidation or effusion. Head CT 11/08/22 12:29 IMPRESSION: No acute intracranial hemorrhage or territorial infarction. Stable chronic postoperative changes with gliosis and encephalomalacia in the right frontal and right temporal lobes. Ex vacuo dilatation of the ventricles and diffuse parenchymal volume loss. Right-sided craniotomy changes. Chest X-Ray 11/12/22 10:32 IMPRESSION: Hypoexpanded lungs with bibasilar platelike atelectasis. Brain MRI 11/12/22 13:15 IMPRESSION: 1. No demonstrated acute intracranial abnormalities. 2. Chronic encephalomalacia of the right temporal, right frontal, and left occipital lobes. Small regions of chronic encephalomalacia in the parasagittal aspects of the bilateral parietal lobes. Moderate underlying microangiopathy and generalized cerebral volume loss. Chest X-Ray 11/14/22 15:52 IMPRESSION: Low lung volumes, bibasilar subsegmental atelectasis and slight elevation of the right hemidiaphragm similar to previous exam. Modified Barium Swallow 11/21/22 15:11 IMPRESSION: Laryngeal penetration on several occasions but no laryngeal aspiration. Mild retention of solid food in the valleculae which cleared with subsequent oral administration of water or thin barium. Correlate with speech therapy results. Orbit CT 01/23/23 14:05 IMPRESSION: - No definite significant intraorbital soft tissue findings to assessment is limited on a noncontrast CT of the orbits. No retrobulbar mass lesions and no cellulitic changes appreciated. - There are large fluid levels within the left maxillary sinus and within the right frontal sinus the can be correlated for clinical signs of acute sinusitis. - A peripherally ossified structure extending from the dorsal margin of the right nasolacrimal duct into the right maxillary sinus is stable when compared to examinations dated back to 08/24/2008 favoring a benign etiology. Medications Medications Current Medications Acetaminophen (Acetaminophen 325 Mg Tablet) 1,000 mg PO Q6H PRN PRN Reason: Headache/Pain Mild Scale (1-3) Last Admin: 02/06/23 07:00 Dose: 1,000 mg Albuterol Sulfate (Albuterol Sulfate 90 Mcg 8 Gm Inhaler) 2 puff INHALE Q6H PRN PRN Reason: Wheezing Alprazolam (Alprazolam 0.5 Mg Tablet) 0.5 mg PO BEDTIME [facility] Last Admin: 02/05/23 21:10 Dose: 0.5 mg Alprazolam (Alprazolam 0.25 Mg Tablet) 0.25 mg PO Q4H PRN PRN Reason: Anxiety Last Admin: 02/03/23 11:25 Dose: 0.25 mg Amlodipine Besylate (Amlodipine Besylate 5 Mg Tablet) 5 mg PO DAILY [facility]; Protocol Last Admin: 02/06/23 08:46 Dose: 5 mg Bisacodyl (Bisacodyl 10 Mg Supp.Rect) 10 mg [place] DAILY PRN PRN Reason: Constipation Divalproex Sodium (Divalproex Sodium Sprinkles 125 Mg ) 375 mg PO BID [facility] Last Admin: 02/06/23 08:44 Dose: 375 mg Gabapentin (Gabapentin 100 Mg Capsule) 100 mg PO TID [facility] Last Admin: 02/06/23 14:20 Dose: 100 mg Hydroxyzine HCl (Hydroxyzine Hcl 50 Mg Tablet) 50 mg PO Q4H PRN PRN Reason: Anxiety Last Admin: 01/26/23 14:12 Dose: 50 mg Ibuprofen (Ibuprofen 600 Mg Tablet) 600 mg PO Q6H PRN PRN Reason: Pain, Moderate (Pain Scale 4-6 Last Admin: 01/31/23 21:14 Dose: 600 mg Lamotrigine (Lamotrigine 100 Mg Tablet) 100 mg PO BID [facility] Last Admin: 02/06/23 08:46 Dose: 100 mg Latanoprost (Latanoprost 0.005 % Ophth No 2.5 Ml Drops) 1 drop EYE-BOTH BEDTIME [facility] Last Admin: 02/05/23 21:07 Dose: 1 drop Lidocaine (Lidocaine 5 % Ointment 35 Gm) 1 appl TOPICAL Q6H PRN; Protocol PRN Reason: Hemorrhoid pain Last Admin: 02/04/23 16:18 Dose: 1 appl Multi-Ingred Cream/Lotion/Oil/Oint (Mineral Oil/Petrolatum,White 106 Gm Tube) 1 appl TOPICAL BID PRN; Protocol PRN Reason: dry skin Nortriptyline HCl (Nortriptyline Hcl 25 Mg Capsule) 50 mg PO BEDTIME [facility] Last Admin: 02/05/23 21:09 Dose: 50 mg Nystatin (Nystatin Powder 15 Gm Bottle) 1 appl TOPICAL BID TAZ; Protocol Last Admin: 02/06/23 10:43 Dose: 1 appl Olanzapine (Olanzapine 2.5 Mg Tablet) 2.5 mg PO DAILY [facility] Last Admin: 02/06/23 08:47 Dose: 2.5 mg Olanzapine (Olanzapine 2.5 Mg Tablet) 2.5 mg PO DAILY@1500 [facility] Last Admin: 02/06/23 14:20 Dose: 2.5 mg Olanzapine (Olanzapine 5 Mg Tablet) 5 mg PO BEDTIME [facility] Last Admin: 02/05/23 21:10 Dose: 5 mg Polyethylene Glycol (Polyethylene Glycol 3350 17 Gm Powd.Pack) 17 gm PO BID TAZ Last Admin: 02/06/23 08:49 Dose: 17 gm Senna/Docusate Sodium (Sennosides/Docusate Sodium Tablet) 2 tab PO BEDTIME [facility] Last Admin: 02/05/23 21:08 Dose: 1 tab Sodium Biphosphate/Sodium Phosphate (Sodium Phosphate,[place]-Dibasic 133 Ml Enema) 133 ml [place] ONCE PRN PRN Reason: Constipation Sodium Chloride (Sodium Chloride 0.65 % Nasal 44 Ml Sprbtl) 1 spray NOSTRIL-B Q1H PRN PRN Reason: Nasal Congestion Last Admin: 02/04/23 13:50 Dose: 1 spray Tamsulosin HCl (Tamsulosin Hcl 0.4 Mg Capsule) 0.4 mg PO DAILY [facility] Last Admin: 02/06/23 08:47 Dose: 0.4 mg Trazodone HCl (Trazodone Hcl 100 Mg Tablet) 200 mg PO BEDTIME [facility] Last Admin: 02/05/23 21:07 Dose: 200 mg Venlafaxine HCl (Venlafaxine Hcl Er 75 Mg Cap.Er.24h) 75 mg PO DAILY [facility] Last Admin: 02/06/23 08:45 Dose: 75 mg Allergies Allergies Allergy/AdvReac Type Severity Reaction Status Date / Time fentanyl [FENTANYL] Allergy Intermediate unknown Verified 04/08/22 07:00 Assessment & Plan Assessment & Plan (1) Major depressive disorder, recurrent severe without psychotic features: Status: Acute Code(s): F33.2 - Major depressive disorder, recurrent severe without psychotic features (2) Cognitive and neurobehavioral dysfunction following brain injury: Status: Acute Code(s): G31.89 - Other specified degenerative diseases of nervous system; F09 - Unspecified mental disorder due to known physiological condition; S06.9X9S - Unspecified intracranial injury with loss of consciousness of unspecified duration, sequela (3) Swallowing dysfunction: Status: Acute Code(s): R13.10 - Dysphagia, unspecified (4) Personality disorder in adult: Status: Acute Code(s): F60.9 - Personality disorder, unspecified Plan The patient is a middle-age male with a past history of major depressive disorder, alcohol use disorder, TBI admitted for suicidality. He had been in the facility sterile times in the last year. Plan 1. Continue with same treatment. 2. Waiting for placement 02/06 continue current tx. Reason for contiued inpatient stay Substantial Risk for: stable for discharge Time Spent With Patient Time: Total time managing care of this patient today ____ minutes.
[2023-02-06 18:00] VITALS: BP 148/71; PULSE 77; RESP 18; TEMP 36.4; O2SAT 97
[2023-02-06] MEDS: Latanoprost 0.005 % Ophth Sol 2.5 ML DROPS 1 DROP EYE-BOTH (22:08)
[2023-02-06] MEDS: Nortriptyline HCl 25 MG CAPSULE 50 MG PO (22:08)
[2023-02-06] MEDS: Sennosides/Docusate Sodium TABLET 2 TAB PO (22:08)
[2023-02-06] MEDS: ALPRAZolam 0.5 MG TABLET PO (22:08)
[2023-02-06] MEDS: OLANZapine 5 MG TABLET PO (22:09)
[2023-02-06] MEDS: traZODone HCL 100 MG TABLET 200 MG PO (22:09)
[2023-02-07 07:25] VITALS: BP 137/76; PULSE 79; RESP 16; TEMP 36.4; O2SAT 97
[2023-02-07] MEDS: Gabapentin 100 MG CAPSULE PO ×3 (08:38→21:42)
[2023-02-07] MEDS: Tamsulosin HCL 0.4 MG CAPSULE PO (08:38)
[2023-02-07] MEDS: lamoTRIgine 100 MG TABLET PO ×2 (08:38→21:45)
[2023-02-07] MEDS: amLODIPine Besylate 5 MG TABLET PO (08:38)
[2023-02-07] MEDS: Divalproex Sodium Sprinkles 125 MG CAP.DR.SPR 375 MG PO ×2 (08:38→21:40)
[2023-02-07] MEDS: Venlafaxine HCl ER 75 MG CAP.ER.24H PO (08:39)
[2023-02-07] MEDS: polyethylene glycoL 3350 17 GM POWD.PACK PO ×2 (08:39→21:46)
[2023-02-07] MEDS: OLANZapine 2.5 MG TABLET PO ×2 (08:39→15:03)
[2023-02-07] MEDS: Lidocaine 5 % Ointment 35 GM 1 APPL TOPICAL ×2 (09:45→21:47)
[2023-02-07] MEDS: Nystatin Powder 15 GM BOTTLE 1 APPL TOPICAL ×2 (09:46→21:47)
[2023-02-07] MEDS: Acetaminophen 325 MG TABLET 1000 MG PO ×2 (14:58→21:42)
[2023-02-07] MEDS: ALPRAZolam 0.25 MG TABLET PO (15:03)
--- NOTE | 2023-02-07 17:03 | HO.PSYCHPN ---
Subjective Subjective Date of Service: 02/07/23 Reason For Visit: Depression hopelessness irritability Interim History: Patient asking to have his Xanax renewed as it dropped off the orders. He reports his mood has been good. He denies SI/HI. No behavioral concerns, although he at times be demanding if needs not met but no overt behavioral concerns. Review of Systems Review of Systems Yes all other systems are reviewed and are negative, Unobtainable due to mental condition and Unobtainable due to mental status Mental Status Exam Mental Status Exam Narrative: Patient Appearance: Appropriate Patient Orientation: Person, Place, Time and Situation Level of Consciousness: Awake Patient Behavior: Appropriate Behavior Comments: Mood Description: Appropriate and Constricted Affect Description: Constricted, Depressed and Apprehensive Patient Cognition Impaired: Yes Ability to Follow Directions: Good Speech Pattern: Clear Memory Description: Episodic Impaired and Working Impaired Diagnostics Vital Signs (24Hr): Vital Signs - 24 hr 02/06/23 18:00 02/07/23 07:25 Temperature 97.5 F 97.5 F Pulse Rate 77 79 Respiratory Rate 18 16 Blood Pressure 148/71 H 137/76 Pulse Oximetry 97 97 Oxygen Delivery Method Room Air Room Air BMI result Body Mass Index 31.0 Labs 11/13/22 07:43 11/12/22 09:32 Imaging Radiology Impressions: ITS Impressions Chest X-Ray 10/20/22 15:45 IMPRESSION: 1. Low lung volumes with bibasilar linear disc atelectasis versus scarring. 2. No airspace consolidation or effusion. Head CT 11/08/22 12:29 IMPRESSION: No acute intracranial hemorrhage or territorial infarction. Stable chronic postoperative changes with gliosis and encephalomalacia in the right frontal and right temporal lobes. Ex vacuo dilatation of the ventricles and diffuse parenchymal volume loss. Right-sided craniotomy changes. Chest X-Ray 11/12/22 10:32 IMPRESSION: Hypoexpanded lungs with bibasilar platelike atelectasis. Brain MRI 11/12/22 13:15 IMPRESSION: 1. No demonstrated acute intracranial abnormalities. 2. Chronic encephalomalacia of the right temporal, right frontal, and left occipital lobes. Small regions of chronic encephalomalacia in the parasagittal aspects of the bilateral parietal lobes. Moderate underlying microangiopathy and generalized cerebral volume loss. Chest X-Ray 11/14/22 15:52 IMPRESSION: Low lung volumes, bibasilar subsegmental atelectasis and slight elevation of the right hemidiaphragm similar to previous exam. Modified Barium Swallow 11/21/22 15:11 IMPRESSION: Laryngeal penetration on several occasions but no laryngeal aspiration. Mild retention of solid food in the valleculae which cleared with subsequent oral administration of water or thin barium. Correlate with speech therapy results. Orbit CT 01/23/23 14:05 IMPRESSION: - No definite significant intraorbital soft tissue findings to assessment is limited on a noncontrast CT of the orbits. No retrobulbar mass lesions and no cellulitic changes appreciated. - There are large fluid levels within the left maxillary sinus and within the right frontal sinus the can be correlated for clinical signs of acute sinusitis. - A peripherally ossified structure extending from the dorsal margin of the right nasolacrimal duct into the right maxillary sinus is stable when compared to examinations dated back to 08/24/2008 favoring a benign etiology. Medications Medications Current Medications Acetaminophen (Acetaminophen 325 Mg Tablet) 1,000 mg PO Q6H PRN PRN Reason: Headache/Pain Mild Scale (1-3) Last Admin: 02/07/23 14:58 Dose: 975 mg Albuterol Sulfate (Albuterol Sulfate 90 Mcg 8 Gm Inhaler) 2 puff INHALE Q6H PRN PRN Reason: Wheezing Alprazolam (Alprazolam 0.5 Mg Tablet) 0.5 mg PO BEDTIME [facility] Last Admin: 02/06/23 22:08 Dose: 0.5 mg Alprazolam (Alprazolam 0.25 Mg Tablet) 0.25 mg PO Q4H PRN PRN Reason: Anxiety Last Admin: 02/07/23 15:03 Dose: 0.25 mg Amlodipine Besylate (Amlodipine Besylate 5 Mg Tablet) 5 mg PO DAILY [facility]; Protocol Last Admin: 02/07/23 08:38 Dose: 5 mg Bisacodyl (Bisacodyl 10 Mg Supp.Rect) 10 mg PA DAILY PRN PRN Reason: Constipation Divalproex Sodium (Divalproex Sodium Sprinkles 125 Mg ) 375 mg PO BID [facility] Last Admin: 02/07/23 08:38 Dose: 375 mg Gabapentin (Gabapentin 100 Mg Capsule) 100 mg PO TID [facility] Last Admin: 02/07/23 15:03 Dose: 100 mg Hydroxyzine HCl (Hydroxyzine Hcl 50 Mg Tablet) 50 mg PO Q4H PRN PRN Reason: Anxiety Last Admin: 01/26/23 14:12 Dose: 50 mg Ibuprofen (Ibuprofen 600 Mg Tablet) 600 mg PO Q6H PRN PRN Reason: Pain, Moderate (Pain Scale 4-6 Last Admin: 01/31/23 21:14 Dose: 600 mg Lamotrigine (Lamotrigine 100 Mg Tablet) 100 mg PO BID [facility] Last Admin: 02/07/23 08:38 Dose: 100 mg Latanoprost (Latanoprost 0.005 % Ophth No 2.5 Ml Drops) 1 drop EYE-BOTH BEDTIME [facility] Last Admin: 02/06/23 22:08 Dose: 1 drop Lidocaine (Lidocaine 5 % Ointment 35 Gm) 1 appl TOPICAL Q6H PRN; Protocol PRN Reason: Hemorrhoid pain Last Admin: 02/07/23 09:45 Dose: 1 appl Multi-Ingred Cream/Lotion/Oil/Oint (Mineral Oil/Petrolatum,White 106 Gm Tube) 1 appl TOPICAL BID PRN; Protocol PRN Reason: dry skin Nortriptyline HCl (Nortriptyline Hcl 25 Mg Capsule) 50 mg PO BEDTIME [facility] Last Admin: 02/06/23 22:08 Dose: 50 mg Nystatin (Nystatin Powder 15 Gm Bottle) 1 appl TOPICAL BID [facility]; Protocol Last Admin: 02/07/23 09:46 Dose: 1 appl Olanzapine (Olanzapine 2.5 Mg Tablet) 2.5 mg PO DAILY [facility] Last Admin: 02/07/23 08:39 Dose: 2.5 mg Olanzapine (Olanzapine 2.5 Mg Tablet) 2.5 mg PO DAILY@1500 [facility] Last Admin: 02/07/23 15:03 Dose: 2.5 mg Olanzapine (Olanzapine 5 Mg Tablet) 5 mg PO BEDTIME [facility] Last Admin: 02/06/23 22:09 Dose: 5 mg Polyethylene Glycol (Polyethylene Glycol 3350 17 Gm Powd.Pack) 17 gm PO BID [facility] Last Admin: 02/07/23 08:39 Dose: 17 gm Senna/Docusate Sodium (Sennosides/Docusate Sodium Tablet) 2 tab PO BEDTIME [facility] Last Admin: 02/06/23 22:08 Dose: 2 tab Sodium Biphosphate/Sodium Phosphate (Sodium Phosphate,[place]-Dibasic 133 Ml Enema) 133 ml PA ONCE PRN PRN Reason: Constipation Sodium Chloride (Sodium Chloride 0.65 % Nasal 44 Ml Sprbtl) 1 spray NOSTRIL-B Q1H PRN PRN Reason: Nasal Congestion Last Admin: 02/04/23 13:50 Dose: 1 spray Tamsulosin HCl (Tamsulosin Hcl 0.4 Mg Capsule) 0.4 mg PO DAILY [facility] Last Admin: 02/07/23 08:38 Dose: 0.4 mg Trazodone HCl (Trazodone Hcl 100 Mg Tablet) 200 mg PO BEDTIME [facility] Last Admin: 02/06/23 22:09 Dose: 200 mg Venlafaxine HCl (Venlafaxine Hcl Er 75 Mg Cap.Er.24h) 75 mg PO DAILY [facility] Last Admin: 02/07/23 08:39 Dose: 75 mg Allergies Allergies Allergy/AdvReac Type Severity Reaction Status Date / Time fentanyl [FENTANYL] Allergy Intermediate unknown Verified 04/08/22 07:00 Assessment & Plan Assessment & Plan (1) Major depressive disorder, recurrent severe without psychotic features: Status: Acute Code(s): F33.2 - Major depressive disorder, recurrent severe without psychotic features (2) Cognitive and neurobehavioral dysfunction following brain injury: Status: Acute Code(s): G31.89 - Other specified degenerative diseases of nervous system; F09 - Unspecified mental disorder due to known physiological condition; S06.9X9S - Unspecified intracranial injury with loss of consciousness of unspecified duration, sequela (3) Swallowing dysfunction: Status: Acute Code(s): R13.10 - Dysphagia, unspecified (4) Personality disorder in adult: Status: Acute Code(s): F60.9 - Personality disorder, unspecified Plan The patient is a middle-age male with a past history of major depressive disorder, alcohol use disorder, TBI admitted for suicidality. He had been in the facility sterile times in the last year. Plan 1. Continue with same treatment. 2. Waiting for placement 02/06 continue current tx. 02/07: continue current tx plan. Reason for contiued inpatient stay Substantial Risk for: inability to function and rapid decompensation Time Spent With Patient Time: Total time managing care of this patient today ____ minutes.
[2023-02-07 18:00] VITALS: BP 145/92; PULSE 80; RESP 18; TEMP 36.2; O2SAT 98
[2023-02-07] MEDS: ALPRAZolam 0.5 MG TABLET PO (21:40)
[2023-02-07] MEDS: Nortriptyline HCl 25 MG CAPSULE 50 MG PO (21:41)
[2023-02-07] MEDS: traZODone HCL 100 MG TABLET 200 MG PO (21:42)
[2023-02-07] MEDS: OLANZapine 5 MG TABLET PO (21:45)
[2023-02-07] MEDS: Sennosides/Docusate Sodium TABLET 2 TAB PO (21:46)
[2023-02-07] MEDS: Latanoprost 0.005 % Ophth Sol 2.5 ML DROPS 1 DROP EYE-BOTH (21:47)
[2023-02-08 06:00] VITALS: BP 137/73; PULSE 77; RESP 16; TEMP 36.4; O2SAT 94
[2023-02-08] MEDS: polyethylene glycoL 3350 17 GM POWD.PACK PO (08:47)
[2023-02-08] MEDS: amLODIPine Besylate 5 MG TABLET PO (08:47)
[2023-02-08] MEDS: Gabapentin 100 MG CAPSULE PO ×3 (08:47→21:52)
[2023-02-08] MEDS: Venlafaxine HCl ER 75 MG CAP.ER.24H PO (08:47)
[2023-02-08] MEDS: OLANZapine 2.5 MG TABLET PO ×2 (08:48→15:40)
[2023-02-08] MEDS: lamoTRIgine 100 MG TABLET PO ×2 (08:48→21:52)
[2023-02-08] MEDS: Divalproex Sodium Sprinkles 125 MG CAP.DR.SPR 375 MG PO ×2 (08:48→21:49)
[2023-02-08] MEDS: Tamsulosin HCL 0.4 MG CAPSULE PO (08:48)
[2023-02-08] MEDS: Nystatin Powder 15 GM BOTTLE 1 APPL TOPICAL ×2 (14:09→22:12)
[2023-02-08] MEDS: Lidocaine 5 % Ointment 35 GM 1 APPL TOPICAL (14:11)
--- NOTE | 2023-02-08 17:24 | P.PNPSI_ITS ---
Subjective Subjective Date of Service: 02/08/23 Reason For Visit: Depression hopelessness irritability Interim History: Patient has been doing well. Unchanged from previous presentations. Denies any concerns. He has been calm and staff had no behavioral concerns. Attending groups and interacting appropriately with patients. No SI/HI. Anxiety about situation after DC. Review of Systems Review of Systems Yes all other systems are reviewed and are negative, Unobtainable due to mental condition and Unobtainable due to mental status Mental Status Exam Mental Status Exam Narrative: Patient Appearance: Appropriate Patient Orientation: Person, Place, Time and Situation Level of Consciousness: Awake Patient Behavior: Appropriate Behavior Comments: Mood Description: Appropriate and Constricted Affect Description: Constricted, Depressed and Apprehensive Patient Cognition Impaired: Yes Ability to Follow Directions: Good Speech Pattern: Clear Memory Description: Episodic Impaired and Working Impaired Diagnostics Vital Signs (24Hr): Vital Signs - 24 hr 02/07/23 18:00 02/08/23 06:00 Temperature 97.1 F 97.5 F Pulse Rate 80 77 Respiratory Rate 18 16 Blood Pressure 145/92 H 137/73 Pulse Oximetry 98 94 Oxygen Delivery Method Room Air Room Air BMI result Body Mass Index 31.0 Labs 11/13/22 07:43 11/12/22 09:32 Imaging Radiology Impressions: ITS Impressions Chest X-Ray 10/20/22 15:45 IMPRESSION: 1. Low lung volumes with bibasilar linear disc atelectasis versus scarring. 2. No airspace consolidation or effusion. Head CT 11/08/22 12:29 IMPRESSION: No acute intracranial hemorrhage or territorial infarction. Stable chronic postoperative changes with gliosis and encephalomalacia in the right frontal and right temporal lobes. Ex vacuo dilatation of the ventricles and diffuse parenchymal volume loss. Right-sided craniotomy changes. Chest X-Ray 11/12/22 10:32 IMPRESSION: Hypoexpanded lungs with bibasilar platelike atelectasis. Brain MRI 11/12/22 13:15 IMPRESSION: 1. No demonstrated acute intracranial abnormalities. 2. Chronic encephalomalacia of the right temporal, right frontal, and left occipital lobes. Small regions of chronic encephalomalacia in the parasagittal aspects of the bilateral parietal lobes. Moderate underlying microangiopathy and generalized cerebral volume loss. Chest X-Ray 11/14/22 15:52 IMPRESSION: Low lung volumes, bibasilar subsegmental atelectasis and slight elevation of the right hemidiaphragm similar to previous exam. Modified Barium Swallow 11/21/22 15:11 IMPRESSION: Laryngeal penetration on several occasions but no laryngeal aspiration. Mild retention of solid food in the valleculae which cleared with subsequent oral administration of water or thin barium. Correlate with speech therapy results. Orbit CT 01/23/23 14:05 IMPRESSION: - No definite significant intraorbital soft tissue findings to assessment is limited on a noncontrast CT of the orbits. No retrobulbar mass lesions and no cellulitic changes appreciated. - There are large fluid levels within the left maxillary sinus and within the right frontal sinus the can be correlated for clinical signs of acute sinusitis. - A peripherally ossified structure extending from the dorsal margin of the right nasolacrimal duct into the right maxillary sinus is stable when compared to examinations dated back to 08/24/2008 favoring a benign etiology. Medications Medications Current Medications Acetaminophen (Acetaminophen 325 Mg Tablet) 1,000 mg PO Q6H PRN PRN Reason: Headache/Pain Mild Scale (1-3) Last Admin: 02/07/23 21:42 Dose: 1,000 mg Albuterol Sulfate (Albuterol Sulfate 90 Mcg 8 Gm Inhaler) 2 puff INHALE Q6H PRN PRN Reason: Wheezing Alprazolam (Alprazolam 0.5 Mg Tablet) 0.5 mg PO BEDTIME [facility] Last Admin: 02/07/23 21:40 Dose: 0.5 mg Alprazolam (Alprazolam 0.25 Mg Tablet) 0.25 mg PO Q4H PRN PRN Reason: Anxiety Last Admin: 02/07/23 15:03 Dose: 0.25 mg Amlodipine Besylate (Amlodipine Besylate 5 Mg Tablet) 5 mg PO DAILY [facility]; Protocol Last Admin: 02/08/23 08:47 Dose: 5 mg Bisacodyl (Bisacodyl 10 Mg Supp.Rect) 10 mg SC DAILY PRN PRN Reason: Constipation Divalproex Sodium (Divalproex Sodium Sprinkles 125 Mg ) 375 mg PO BID [facility] Last Admin: 02/08/23 08:48 Dose: 375 mg Gabapentin (Gabapentin 100 Mg Capsule) 100 mg PO TID [facility] Last Admin: 02/08/23 15:40 Dose: 100 mg Hydroxyzine HCl (Hydroxyzine Hcl 50 Mg Tablet) 50 mg PO Q4H PRN PRN Reason: Anxiety Last Admin: 01/26/23 14:12 Dose: 50 mg Ibuprofen (Ibuprofen 600 Mg Tablet) 600 mg PO Q6H PRN PRN Reason: Pain, Moderate (Pain Scale 4-6 Last Admin: 01/31/23 21:14 Dose: 600 mg Lamotrigine (Lamotrigine 100 Mg Tablet) 100 mg PO BID [facility] Last Admin: 02/08/23 08:48 Dose: 100 mg Latanoprost (Latanoprost 0.005 % Ophth No 2.5 Ml Drops) 1 drop EYE-BOTH BEDTIME [facility] Last Admin: 02/07/23 21:47 Dose: 1 drop Lidocaine (Lidocaine 5 % Ointment 35 Gm) 1 appl TOPICAL Q6H PRN; Protocol PRN Reason: Hemorrhoid pain Last Admin: 02/08/23 14:11 Dose: 1 appl Multi-Ingred Cream/Lotion/Oil/Oint (Mineral Oil/Petrolatum,White 106 Gm Tube) 1 appl TOPICAL BID PRN; Protocol PRN Reason: dry skin Nortriptyline HCl (Nortriptyline Hcl 25 Mg Capsule) 50 mg PO BEDTIME [facility] Last Admin: 02/07/23 21:41 Dose: 50 mg Nystatin (Nystatin Powder 15 Gm Bottle) 1 appl TOPICAL BID [facility]; Protocol Last Admin: 02/08/23 14:09 Dose: 1 appl Olanzapine (Olanzapine 2.5 Mg Tablet) 2.5 mg PO DAILY [facility] Last Admin: 02/08/23 08:48 Dose: 2.5 mg Olanzapine (Olanzapine 2.5 Mg Tablet) 2.5 mg PO DAILY@1500 [facility] Last Admin: 02/08/23 15:40 Dose: 2.5 mg Olanzapine (Olanzapine 5 Mg Tablet) 5 mg PO BEDTIME [facility] Last Admin: 02/07/23 21:45 Dose: 5 mg Polyethylene Glycol (Polyethylene Glycol 3350 17 Gm Powd.Pack) 17 gm PO BID [facility] Last Admin: 02/08/23 08:47 Dose: 17 gm Senna/Docusate Sodium (Sennosides/Docusate Sodium Tablet) 2 tab PO BEDTIME [facility] Last Admin: 02/07/23 21:46 Dose: 2 tab Sodium Biphosphate/Sodium Phosphate (Sodium Phosphate,[place]-Dibasic 133 Ml Enema) 133 ml SC ONCE PRN PRN Reason: Constipation Sodium Chloride (Sodium Chloride 0.65 % Nasal 44 Ml Sprbtl) 1 spray NOSTRIL-B Q1H PRN PRN Reason: Nasal Congestion Last Admin: 02/04/23 13:50 Dose: 1 spray Tamsulosin HCl (Tamsulosin Hcl 0.4 Mg Capsule) 0.4 mg PO DAILY [facility] Last Admin: 02/08/23 08:48 Dose: 0.4 mg Trazodone HCl (Trazodone Hcl 100 Mg Tablet) 200 mg PO BEDTIME [facility] Last Admin: 02/07/23 21:42 Dose: 200 mg Venlafaxine HCl (Venlafaxine Hcl Er 75 Mg Cap.Er.24h) 75 mg PO DAILY [facility] Last Admin: 02/08/23 08:47 Dose: 75 mg Allergies Allergies Allergy/AdvReac Type Severity Reaction Status Date / Time fentanyl [FENTANYL] Allergy Intermediate unknown Verified 04/08/22 07:00 Assessment & Plan Assessment & Plan (1) Major depressive disorder, recurrent severe without psychotic features: Status: Acute Code(s): F33.2 - Major depressive disorder, recurrent severe without psychotic features (2) Cognitive and neurobehavioral dysfunction following brain injury: Status: Acute Code(s): G31.89 - Other specified degenerative diseases of nervous system; F09 - Unspecified mental disorder due to known physiological condition; S06.9X9S - Unspecified intracranial injury with loss of consciousness of unspecified duration, sequela (3) Swallowing dysfunction: Status: Acute Code(s): R13.10 - Dysphagia, unspecified (4) Personality disorder in adult: Status: Acute Code(s): F60.9 - Personality disorder, unspecified Plan The patient is a middle-age male with a past history of major depressive disorder, alcohol use disorder, TBI admitted for suicidality. He had been in the facility sterile times in the last year. Plan 1. Continue with same treatment. 2. Waiting for placement 02/06 continue current tx. 02/07: continue current tx plan. 02/08: continue current tx plan. Reason for contiued inpatient stay Substantial Risk for: harm to self, inability to function and rapid decompensation Time Spent With Patient Time: Total time managing care of this patient today ____ minutes.
[2023-02-08 18:00] VITALS: BP 139/65; PULSE 75; RESP 18; TEMP 36.3; O2SAT 97
[2023-02-08] MEDS: ALPRAZolam 0.5 MG TABLET PO (21:46)
[2023-02-08] MEDS: Sennosides/Docusate Sodium TABLET 2 TAB PO (21:47)
[2023-02-08] MEDS: Nortriptyline HCl 25 MG CAPSULE 50 MG PO (21:51)
[2023-02-08] MEDS: OLANZapine 5 MG TABLET PO (21:51)
[2023-02-08] MEDS: traZODone HCL 100 MG TABLET 200 MG PO (21:51)
[2023-02-08] MEDS: Latanoprost 0.005 % Ophth Sol 2.5 ML DROPS 1 DROP EYE-BOTH (22:05)
[2023-02-09] MEDS: polyethylene glycoL 3350 17 GM POWD.PACK PO ×3 (01:31→18:15)
[2023-02-09 06:00] VITALS: BP 127/63; PULSE 82; RESP 16; TEMP 36.1; O2SAT 96
[2023-02-09] MEDS: Acetaminophen 325 MG TABLET 1000 MG PO (06:21)
[2023-02-09] MEDS: Divalproex Sodium Sprinkles 125 MG CAP.DR.SPR 375 MG PO ×2 (09:13→21:26)
[2023-02-09] MEDS: Tamsulosin HCL 0.4 MG CAPSULE PO (09:13)
[2023-02-09] MEDS: lamoTRIgine 100 MG TABLET PO ×2 (09:13→21:30)
[2023-02-09] MEDS: Gabapentin 100 MG CAPSULE PO ×3 (09:13→21:30)
[2023-02-09] MEDS: OLANZapine 2.5 MG TABLET PO ×2 (09:14→15:58)
[2023-02-09] MEDS: amLODIPine Besylate 5 MG TABLET PO (09:14)
[2023-02-09] MEDS: Venlafaxine HCl ER 75 MG CAP.ER.24H PO (09:16)
--- NOTE | 2023-02-09 10:24 | HO.PSYCHPN ---
Subjective Subjective Date of Service: 02/09/23 Reason For Visit: Depression hopelessness irritability Subjective Notes: Conditional Voluntary Interim History: The nursing staff reported the patient slept well last night, no changes in his mental status. On interview the patient reports some anxiety and depression but safe in the unit. Mental Status Exam Mental Status Exam Patient Appearance: Well Grooomed and Appropriate Patient Orientation: Person and Situation Level of Consciousness: Awake and Appropriate Patient Behavior: Cooperative Mood Description: Calm Affect Description: Constricted Patient Cognition Impaired: No Ability to Follow Directions: Good Speech Pattern: Clear Hallucinations: None Delusions: Not Present Thought Process: Goal Oriented and Linear Thought Content: positive for Circumstantial Judgement: Fair Diagnostics Vital Signs (24Hr): Vital Signs - 24 hr 02/08/23 18:00 02/09/23 06:00 Temperature 97.4 F 96.9 F Pulse Rate 75 82 Respiratory Rate 18 16 Blood Pressure 139/65 127/63 Pulse Oximetry 97 96 Oxygen Delivery Method Room Air Room Air BMI result Body Mass Index 31.0 Labs 11/13/22 07:43 11/12/22 09:32 Imaging Radiology Impressions: ITS Impressions Chest X-Ray 10/20/22 15:45 IMPRESSION: 1. Low lung volumes with bibasilar linear disc atelectasis versus scarring. 2. No airspace consolidation or effusion. Head CT 11/08/22 12:29 IMPRESSION: No acute intracranial hemorrhage or territorial infarction. Stable chronic postoperative changes with gliosis and encephalomalacia in the right frontal and right temporal lobes. Ex vacuo dilatation of the ventricles and diffuse parenchymal volume loss. Right-sided craniotomy changes. Chest X-Ray 11/12/22 10:32 IMPRESSION: Hypoexpanded lungs with bibasilar platelike atelectasis. Brain MRI 11/12/22 13:15 IMPRESSION: 1. No demonstrated acute intracranial abnormalities. 2. Chronic encephalomalacia of the right temporal, right frontal, and left occipital lobes. Small regions of chronic encephalomalacia in the parasagittal aspects of the bilateral parietal lobes. Moderate underlying microangiopathy and generalized cerebral volume loss. Chest X-Ray 11/14/22 15:52 IMPRESSION: Low lung volumes, bibasilar subsegmental atelectasis and slight elevation of the right hemidiaphragm similar to previous exam. Modified Barium Swallow 11/21/22 15:11 IMPRESSION: Laryngeal penetration on several occasions but no laryngeal aspiration. Mild retention of solid food in the valleculae which cleared with subsequent oral administration of water or thin barium. Correlate with speech therapy results. Orbit CT 01/23/23 14:05 IMPRESSION: - No definite significant intraorbital soft tissue findings to assessment is limited on a noncontrast CT of the orbits. No retrobulbar mass lesions and no cellulitic changes appreciated. - There are large fluid levels within the left maxillary sinus and within the right frontal sinus the can be correlated for clinical signs of acute sinusitis. - A peripherally ossified structure extending from the dorsal margin of the right nasolacrimal duct into the right maxillary sinus is stable when compared to examinations dated back to 08/24/2008 favoring a benign etiology. Medications Medications Current Medications Acetaminophen (Acetaminophen 325 Mg Tablet) 1,000 mg PO Q6H PRN PRN Reason: Headache/Pain Mild Scale (1-3) Last Admin: 02/09/23 06:21 Dose: 1,000 mg Albuterol Sulfate (Albuterol Sulfate 90 Mcg 8 Gm Inhaler) 2 puff INHALE Q6H PRN PRN Reason: Wheezing Alprazolam (Alprazolam 0.5 Mg Tablet) 0.5 mg PO BEDTIME [facility] Last Admin: 02/08/23 21:46 Dose: 0.5 mg Alprazolam (Alprazolam 0.25 Mg Tablet) 0.25 mg PO Q4H PRN PRN Reason: Anxiety Last Admin: 02/07/23 15:03 Dose: 0.25 mg Amlodipine Besylate (Amlodipine Besylate 5 Mg Tablet) 5 mg PO DAILY [facility]; Protocol Last Admin: 02/09/23 09:14 Dose: 5 mg Bisacodyl (Bisacodyl 10 Mg Supp.Rect) 10 mg AL DAILY PRN PRN Reason: Constipation Divalproex Sodium (Divalproex Sodium Sprinkles 125 Mg ) 375 mg PO BID [facility] Last Admin: 02/09/23 09:13 Dose: 375 mg Gabapentin (Gabapentin 100 Mg Capsule) 100 mg PO TID [facility] Last Admin: 02/09/23 09:13 Dose: 100 mg Hydroxyzine HCl (Hydroxyzine Hcl 50 Mg Tablet) 50 mg PO Q4H PRN PRN Reason: Anxiety Last Admin: 01/26/23 14:12 Dose: 50 mg Ibuprofen (Ibuprofen 600 Mg Tablet) 600 mg PO Q6H PRN PRN Reason: Pain, Moderate (Pain Scale 4-6 Last Admin: 01/31/23 21:14 Dose: 600 mg Lamotrigine (Lamotrigine 100 Mg Tablet) 100 mg PO BID [facility] Last Admin: 02/09/23 09:13 Dose: 100 mg Latanoprost (Latanoprost 0.005 % Ophth No 2.5 Ml Drops) 1 drop EYE-BOTH BEDTIME [facility] Last Admin: 02/08/23 22:05 Dose: 1 drop Lidocaine (Lidocaine 5 % Ointment 35 Gm) 1 appl TOPICAL Q6H PRN; Protocol PRN Reason: Hemorrhoid pain Last Admin: 02/08/23 14:11 Dose: 1 appl Multi-Ingred Cream/Lotion/Oil/Oint (Mineral Oil/Petrolatum,White 106 Gm Tube) 1 appl TOPICAL BID PRN; Protocol PRN Reason: dry skin Nortriptyline HCl (Nortriptyline Hcl 25 Mg Capsule) 50 mg PO BEDTIME [facility] Last Admin: 02/08/23 21:51 Dose: 50 mg Nystatin (Nystatin Powder 15 Gm Bottle) 1 appl TOPICAL BID [facility]; Protocol Last Admin: 02/08/23 22:12 Dose: 1 appl Olanzapine (Olanzapine 2.5 Mg Tablet) 2.5 mg PO DAILY [facility] Last Admin: 02/09/23 09:14 Dose: 2.5 mg Olanzapine (Olanzapine 2.5 Mg Tablet) 2.5 mg PO DAILY@1500 [facility] Last Admin: 02/08/23 15:40 Dose: 2.5 mg Olanzapine (Olanzapine 5 Mg Tablet) 5 mg PO BEDTIME [facility] Last Admin: 02/08/23 21:51 Dose: 5 mg Polyethylene Glycol (Polyethylene Glycol 3350 17 Gm Powd.Pack) 17 gm PO BID [facility] Last Admin: 02/09/23 09:13 Dose: 17 gm Senna/Docusate Sodium (Sennosides/Docusate Sodium Tablet) 2 tab PO BEDTIME [facility] Last Admin: 02/08/23 21:47 Dose: 2 tab Sodium Biphosphate/Sodium Phosphate (Sodium Phosphate,[place]-Dibasic 133 Ml Enema) 133 ml AL ONCE PRN PRN Reason: Constipation Sodium Chloride (Sodium Chloride 0.65 % Nasal 44 Ml Sprbtl) 1 spray NOSTRIL-B Q1H PRN PRN Reason: Nasal Congestion Last Admin: 02/04/23 13:50 Dose: 1 spray Tamsulosin HCl (Tamsulosin Hcl 0.4 Mg Capsule) 0.4 mg PO DAILY [facility] Last Admin: 02/09/23 09:13 Dose: 0.4 mg Trazodone HCl (Trazodone Hcl 100 Mg Tablet) 200 mg PO BEDTIME [facility] Last Admin: 02/08/23 21:51 Dose: 200 mg Venlafaxine HCl (Venlafaxine Hcl Er 75 Mg Cap.Er.24h) 75 mg PO DAILY [facility] Last Admin: 02/09/23 09:16 Dose: 75 mg Allergies Allergies Allergy/AdvReac Type Severity Reaction Status Date / Time fentanyl [FENTANYL] Allergy Intermediate unknown Verified 04/08/22 07:00 Assessment & Plan Assessment & Plan (1) Major depressive disorder, recurrent severe without psychotic features: Status: Acute Code(s): F33.2 - Major depressive disorder, recurrent severe without psychotic features (2) Cognitive and neurobehavioral dysfunction following brain injury: Status: Acute Code(s): G31.89 - Other specified degenerative diseases of nervous system; F09 - Unspecified mental disorder due to known physiological condition; S06.9X9S - Unspecified intracranial injury with loss of consciousness of unspecified duration, sequela (3) Swallowing dysfunction: Status: Acute Code(s): R13.10 - Dysphagia, unspecified (4) Personality disorder in adult: Status: Acute Code(s): F60.9 - Personality disorder, unspecified Plan The patient is a middle-age male with a past history of major depressive disorder, alcohol use disorder, TBI admitted for suicidality. He had been in the facility sterile times in the last year. Plan 1. Continue with same treatment. 2. Waiting for placement Reason for contiued inpatient stay Substantial Risk for: inability to function, rapid decompensation and med/psych decompensation Time Spent With Patient Time: Total time managing care of this patient today __20__ minutes.
[2023-02-09] MEDS: hydrOXYzine HCL 50 MG TABLET PO ×2 (10:46→16:02)
[2023-02-09 18:00] VITALS: BP 149/69; PULSE 64; RESP 18; TEMP 36.5; O2SAT 96
[2023-02-09] MEDS: ALPRAZolam 0.5 MG TABLET PO (21:27)
[2023-02-09] MEDS: Nortriptyline HCl 25 MG CAPSULE 50 MG PO (21:27)
[2023-02-09] MEDS: traZODone HCL 100 MG TABLET 200 MG PO (21:28)
[2023-02-09] MEDS: OLANZapine 5 MG TABLET PO (21:29)
[2023-02-09] MEDS: Sennosides/Docusate Sodium TABLET 2 TAB PO (21:29)
[2023-02-09] MEDS: Latanoprost 0.005 % Ophth Sol 2.5 ML DROPS 1 DROP EYE-BOTH (21:34)
[2023-02-09] MEDS: Nystatin Powder 15 GM BOTTLE 1 APPL TOPICAL (22:45)
[2023-02-10] MEDS: Acetaminophen 325 MG TABLET 975 MG PO (06:53)
[2023-02-10 08:00] VITALS: BP 144/85; PULSE 74; RESP 18; TEMP 37; O2SAT 93
[2023-02-10] MEDS: polyethylene glycoL 3350 17 GM POWD.PACK PO ×2 (08:58→20:53)
[2023-02-10] MEDS: lamoTRIgine 100 MG TABLET PO ×2 (08:59→20:52)
[2023-02-10] MEDS: Venlafaxine HCl ER 75 MG CAP.ER.24H PO (08:59)
[2023-02-10] MEDS: Tamsulosin HCL 0.4 MG CAPSULE PO (08:59)
[2023-02-10] MEDS: OLANZapine 2.5 MG TABLET PO ×2 (08:59→14:56)
[2023-02-10] MEDS: amLODIPine Besylate 5 MG TABLET PO (08:59)
[2023-02-10] MEDS: Gabapentin 100 MG CAPSULE PO ×3 (09:00→20:52)
[2023-02-10] MEDS: Divalproex Sodium Sprinkles 125 MG CAP.DR.SPR 375 MG PO ×2 (09:00→20:51)
[2023-02-10] MEDS: Nystatin Powder 15 GM BOTTLE 1 APPL TOPICAL ×2 (09:03→09:26)
--- NOTE | 2023-02-10 14:29 | HO.PSYCHPN ---
Subjective Subjective Date of Service: 02/10/23 Reason For Visit: Depression hopelessness irritability Subjective Notes: Conditional Voluntary Interim History: The nursing staff reported the patient needed MiraLax as a p.r.n.. He slept well last night and he had some p.r.n. Atarax. On interview the patient denies new symptoms. Waiting for placement Mental Status Exam Mental Status Exam Patient Appearance: Well Grooomed Patient Orientation: Person, Place and Situation Level of Consciousness: Awake and Appropriate Patient Behavior: Cooperative Mood Description: Calm Affect Description: Constricted Patient Cognition Impaired: Yes Ability to Follow Directions: Good Speech Pattern: Clear and Appropriate Hallucinations: None Delusions: Paranoid Ideation Thought Process: Distracted Thought Content: positive for [place] and positive for Circumstantial Judgement: Fair Diagnostics Vital Signs (24Hr): Vital Signs - 24 hr 02/09/23 18:00 02/10/23 08:00 Temperature 97.7 F 98.6 F Pulse Rate 64 74 Respiratory Rate 18 18 Blood Pressure 149/69 H 144/85 H Pulse Oximetry 96 93 Oxygen Delivery Method Room Air Room Air BMI result Body Mass Index 31.0 Labs 11/13/22 07:43 11/12/22 09:32 Imaging Radiology Impressions: ITS Impressions Chest X-Ray 10/20/22 15:45 IMPRESSION: 1. Low lung volumes with bibasilar linear disc atelectasis versus scarring. 2. No airspace consolidation or effusion. Head CT 11/08/22 12:29 IMPRESSION: No acute intracranial hemorrhage or territorial infarction. Stable chronic postoperative changes with gliosis and encephalomalacia in the right frontal and right temporal lobes. Ex vacuo dilatation of the ventricles and diffuse parenchymal volume loss. Right-sided craniotomy changes. Chest X-Ray 11/12/22 10:32 IMPRESSION: Hypoexpanded lungs with bibasilar platelike atelectasis. Brain MRI 11/12/22 13:15 IMPRESSION: 1. No demonstrated acute intracranial abnormalities. 2. Chronic encephalomalacia of the right temporal, right frontal, and left occipital lobes. Small regions of chronic encephalomalacia in the parasagittal aspects of the bilateral parietal lobes. Moderate underlying microangiopathy and generalized cerebral volume loss. Chest X-Ray 11/14/22 15:52 IMPRESSION: Low lung volumes, bibasilar subsegmental atelectasis and slight elevation of the right hemidiaphragm similar to previous exam. Modified Barium Swallow 11/21/22 15:11 IMPRESSION: Laryngeal penetration on several occasions but no laryngeal aspiration. Mild retention of solid food in the valleculae which cleared with subsequent oral administration of water or thin barium. Correlate with speech therapy results. Orbit CT 01/23/23 14:05 IMPRESSION: - No definite significant intraorbital soft tissue findings to assessment is limited on a noncontrast CT of the orbits. No retrobulbar mass lesions and no cellulitic changes appreciated. - There are large fluid levels within the left maxillary sinus and within the right frontal sinus the can be correlated for clinical signs of acute sinusitis. - A peripherally ossified structure extending from the dorsal margin of the right nasolacrimal duct into the right maxillary sinus is stable when compared to examinations dated back to 08/24/2008 favoring a benign etiology. Medications Medications Current Medications Acetaminophen (Acetaminophen 325 Mg Tablet) 975 mg PO Q6H PRN PRN Reason: Headache/Pain Mild Scale (1-3) Last Admin: 02/10/23 06:53 Dose: 975 mg Albuterol Sulfate (Albuterol Sulfate 90 Mcg 8 Gm Inhaler) 2 puff INHALE Q6H PRN PRN Reason: Wheezing Alprazolam (Alprazolam 0.5 Mg Tablet) 0.5 mg PO BEDTIME [facility] Last Admin: 02/09/23 21:27 Dose: 0.5 mg Alprazolam (Alprazolam 0.25 Mg Tablet) 0.25 mg PO Q4H PRN PRN Reason: Anxiety Last Admin: 02/07/23 15:03 Dose: 0.25 mg Amlodipine Besylate (Amlodipine Besylate 5 Mg Tablet) 5 mg PO DAILY [facility]; Protocol Last Admin: 02/10/23 08:59 Dose: 5 mg Bisacodyl (Bisacodyl 10 Mg Supp.Rect) 10 mg GA DAILY PRN PRN Reason: Constipation Divalproex Sodium (Divalproex Sodium Sprinkles 125 Mg ) 375 mg PO BID [facility] Last Admin: 02/10/23 09:00 Dose: 375 mg Gabapentin (Gabapentin 100 Mg Capsule) 100 mg PO TID [facility] Last Admin: 02/10/23 09:00 Dose: 100 mg Hydroxyzine HCl (Hydroxyzine Hcl 50 Mg Tablet) 50 mg PO Q4H PRN PRN Reason: Anxiety Last Admin: 02/09/23 16:02 Dose: 50 mg Ibuprofen (Ibuprofen 600 Mg Tablet) 600 mg PO Q6H PRN PRN Reason: Pain, Moderate (Pain Scale 4-6 Last Admin: 01/31/23 21:14 Dose: 600 mg Lamotrigine (Lamotrigine 100 Mg Tablet) 100 mg PO BID [facility] Last Admin: 02/10/23 08:59 Dose: 100 mg Latanoprost (Latanoprost 0.005 % Ophth No 2.5 Ml Drops) 1 drop EYE-BOTH BEDTIME [facility] Last Admin: 02/09/23 21:34 Dose: 1 drop Lidocaine (Lidocaine 5 % Ointment 35 Gm) 1 appl TOPICAL Q6H PRN; Protocol PRN Reason: Hemorrhoid pain Last Admin: 02/08/23 14:11 Dose: 1 appl Multi-Ingred Cream/Lotion/Oil/Oint (Mineral Oil/Petrolatum,White 106 Gm Tube) 1 appl TOPICAL BID PRN; Protocol PRN Reason: dry skin Nortriptyline HCl (Nortriptyline Hcl 25 Mg Capsule) 50 mg PO BEDTIME [facility] Last Admin: 02/09/23 21:27 Dose: 50 mg Nystatin (Nystatin Powder 15 Gm Bottle) 1 appl TOPICAL BID [facility]; Protocol Last Admin: 02/10/23 09:26 Dose: 1 appl Olanzapine (Olanzapine 2.5 Mg Tablet) 2.5 mg PO DAILY [facility] Last Admin: 02/10/23 08:59 Dose: 2.5 mg Olanzapine (Olanzapine 2.5 Mg Tablet) 2.5 mg PO DAILY@1500 [facility] Last Admin: 02/09/23 15:58 Dose: 2.5 mg Olanzapine (Olanzapine 5 Mg Tablet) 5 mg PO BEDTIME [facility] Last Admin: 02/09/23 21:29 Dose: 5 mg Polyethylene Glycol (Polyethylene Glycol 3350 17 Gm Powd.Pack) 17 gm PO BID [facility] Last Admin: 02/10/23 08:58 Dose: 17 gm Senna/Docusate Sodium (Sennosides/Docusate Sodium Tablet) 2 tab PO BEDTIME [facility] Last Admin: 02/09/23 21:29 Dose: 2 tab Sodium Biphosphate/Sodium Phosphate (Sodium Phosphate,[place]-Dibasic 133 Ml Enema) 133 ml [place] ONCE PRN PRN Reason: Constipation Sodium Chloride (Sodium Chloride 0.65 % Nasal 44 Ml Sprbtl) 1 spray NOSTRIL-B Q1H PRN PRN Reason: Nasal Congestion Last Admin: 02/04/23 13:50 Dose: 1 spray Tamsulosin HCl (Tamsulosin Hcl 0.4 Mg Capsule) 0.4 mg PO DAILY [facility] Last Admin: 02/10/23 08:59 Dose: 0.4 mg Trazodone HCl (Trazodone Hcl 100 Mg Tablet) 200 mg PO BEDTIME [facility] Last Admin: 02/09/23 21:28 Dose: 200 mg Venlafaxine HCl (Venlafaxine Hcl Er 75 Mg Cap.Er.24h) 75 mg PO DAILY [facility] Last Admin: 02/10/23 08:59 Dose: 75 mg Allergies Allergies Allergy/AdvReac Type Severity Reaction Status Date / Time fentanyl [FENTANYL] Allergy Intermediate unknown Verified 04/08/22 07:00 Assessment & Plan Assessment & Plan (1) Major depressive disorder, recurrent severe without psychotic features: Status: Acute Code(s): F33.2 - Major depressive disorder, recurrent severe without psychotic features (2) Cognitive and neurobehavioral dysfunction following brain injury: Status: Acute Code(s): G31.89 - Other specified degenerative diseases of nervous system; F09 - Unspecified mental disorder due to known physiological condition; S06.9X9S - Unspecified intracranial injury with loss of consciousness of unspecified duration, sequela (3) Swallowing dysfunction: Status: Acute Code(s): R13.10 - Dysphagia, unspecified (4) Personality disorder in adult: Status: Acute Code(s): F60.9 - Personality disorder, unspecified Plan The patient is a middle-age male with a past history of major depressive disorder, alcohol use disorder, TBI admitted for suicidality. He had been in the facility sterile times in the last year. Plan 1. Continue with same treatment. 2. Waiting for placement Reason for contiued inpatient stay Substantial Risk for: inability to function, rapid decompensation and med/psych decompensation Time Spent With Patient Time: Total time managing care of this patient today ____ minutes.
[2023-02-10 18:00] VITALS: BP 142/70; PULSE 73; RESP 18; TEMP 36.5; O2SAT 98
[2023-02-10] MEDS: Lidocaine 5 % Ointment 35 GM 1 APPL TOPICAL (20:52)
[2023-02-10] MEDS: traZODone HCL 100 MG TABLET 200 MG PO (20:52)
[2023-02-10] MEDS: OLANZapine 5 MG TABLET PO (20:52)
[2023-02-10] MEDS: ALPRAZolam 0.5 MG TABLET PO (20:52)
[2023-02-10] MEDS: Nortriptyline HCl 25 MG CAPSULE 50 MG PO (20:52)
[2023-02-10] MEDS: Sennosides/Docusate Sodium TABLET 2 TAB PO (20:52)
[2023-02-10] MEDS: Latanoprost 0.005 % Ophth Sol 2.5 ML DROPS 1 DROP EYE-BOTH (20:56)
[2023-02-11 08:00] VITALS: BP 141/73; PULSE 83; RESP 18; TEMP 36.2; O2SAT 97
[2023-02-11] MEDS: Divalproex Sodium Sprinkles 125 MG CAP.DR.SPR 375 MG PO ×2 (08:02→21:06)
[2023-02-11] MEDS: Venlafaxine HCl ER 75 MG CAP.ER.24H PO (08:03)
[2023-02-11] MEDS: amLODIPine Besylate 5 MG TABLET PO (08:04)
[2023-02-11] MEDS: lamoTRIgine 100 MG TABLET PO ×2 (08:04→21:08)
[2023-02-11] MEDS: Tamsulosin HCL 0.4 MG CAPSULE PO (08:04)
[2023-02-11] MEDS: OLANZapine 2.5 MG TABLET PO ×2 (08:04→14:39)
[2023-02-11] MEDS: Nystatin Powder 15 GM BOTTLE 1 APPL TOPICAL ×2 (08:05→21:11)
[2023-02-11] MEDS: Gabapentin 100 MG CAPSULE PO ×3 (08:05→21:10)
[2023-02-11] MEDS: polyethylene glycoL 3350 17 GM POWD.PACK PO ×2 (08:05→21:05)
[2023-02-11] MEDS: Lidocaine 5 % Ointment 35 GM 1 APPL TOPICAL ×2 (12:31→21:08)
--- NOTE | 2023-02-11 12:32 | HO.PSYCHPN ---
Subjective Subjective Date of Service: 02/11/23 Reason For Visit: Depression hopelessness irritability Subjective Notes: Conditional Voluntary Interim History: The nursing staff reported the patient slept well last night, he is self-referred ported depression and anxiety for over 10. On interview the patient denies new symptoms he had been participating in groups. Mental Status Exam Mental Status Exam Patient Appearance: Well Grooomed and Appropriate Patient Orientation: Person and Situation Level of Consciousness: Awake and Appropriate Patient Behavior: Appropriate and Cooperative Mood Description: Calm Affect Description: Constricted Patient Cognition Impaired: Yes Ability to Follow Directions: Good Speech Pattern: Appropriate Hallucinations: None Delusions: Not Present Thought Process: Linear Thought Content: positive for Circumstantial Judgement: Fair Diagnostics Vital Signs (24Hr): Vital Signs - 24 hr 02/10/23 18:00 02/11/23 08:00 Temperature 97.7 F 97.1 F Pulse Rate 73 83 Respiratory Rate 18 18 Blood Pressure 142/70 H 141/73 H Pulse Oximetry 98 97 Oxygen Delivery Method Room Air Room Air BMI result Body Mass Index 31.0 Labs 11/13/22 07:43 11/12/22 09:32 Imaging Radiology Impressions: ITS Impressions Chest X-Ray 10/20/22 15:45 IMPRESSION: 1. Low lung volumes with bibasilar linear disc atelectasis versus scarring. 2. No airspace consolidation or effusion. Head CT 11/08/22 12:29 IMPRESSION: No acute intracranial hemorrhage or territorial infarction. Stable chronic postoperative changes with gliosis and encephalomalacia in the right frontal and right temporal lobes. Ex vacuo dilatation of the ventricles and diffuse parenchymal volume loss. Right-sided craniotomy changes. Chest X-Ray 11/12/22 10:32 IMPRESSION: Hypoexpanded lungs with bibasilar platelike atelectasis. Brain MRI 11/12/22 13:15 IMPRESSION: 1. No demonstrated acute intracranial abnormalities. 2. Chronic encephalomalacia of the right temporal, right frontal, and left occipital lobes. Small regions of chronic encephalomalacia in the parasagittal aspects of the bilateral parietal lobes. Moderate underlying microangiopathy and generalized cerebral volume loss. Chest X-Ray 11/14/22 15:52 IMPRESSION: Low lung volumes, bibasilar subsegmental atelectasis and slight elevation of the right hemidiaphragm similar to previous exam. Modified Barium Swallow 11/21/22 15:11 IMPRESSION: Laryngeal penetration on several occasions but no laryngeal aspiration. Mild retention of solid food in the valleculae which cleared with subsequent oral administration of water or thin barium. Correlate with speech therapy results. Orbit CT 01/23/23 14:05 IMPRESSION: - No definite significant intraorbital soft tissue findings to assessment is limited on a noncontrast CT of the orbits. No retrobulbar mass lesions and no cellulitic changes appreciated. - There are large fluid levels within the left maxillary sinus and within the right frontal sinus the can be correlated for clinical signs of acute sinusitis. - A peripherally ossified structure extending from the dorsal margin of the right nasolacrimal duct into the right maxillary sinus is stable when compared to examinations dated back to 08/24/2008 favoring a benign etiology. Medications Medications Current Medications Acetaminophen (Acetaminophen 325 Mg Tablet) 975 mg PO Q6H PRN PRN Reason: Headache/Pain Mild Scale (1-3) Last Admin: 02/10/23 06:53 Dose: 975 mg Albuterol Sulfate (Albuterol Sulfate 90 Mcg 8 Gm Inhaler) 2 puff INHALE Q6H PRN PRN Reason: Wheezing Alprazolam (Alprazolam 0.5 Mg Tablet) 0.5 mg PO BEDTIME [facility] Last Admin: 02/10/23 20:52 Dose: 0.5 mg Alprazolam (Alprazolam 0.25 Mg Tablet) 0.25 mg PO Q4H PRN PRN Reason: Anxiety Last Admin: 02/07/23 15:03 Dose: 0.25 mg Amlodipine Besylate (Amlodipine Besylate 5 Mg Tablet) 5 mg PO DAILY [facility]; Protocol Last Admin: 02/11/23 08:04 Dose: 5 mg Bisacodyl (Bisacodyl 10 Mg Supp.Rect) 10 mg [place] DAILY PRN PRN Reason: Constipation Divalproex Sodium (Divalproex Sodium Sprinkles 125 Mg ) 375 mg PO BID [facility] Last Admin: 02/11/23 08:02 Dose: 375 mg Gabapentin (Gabapentin 100 Mg Capsule) 100 mg PO TID [facility] Last Admin: 02/11/23 08:05 Dose: 100 mg Hydroxyzine HCl (Hydroxyzine Hcl 50 Mg Tablet) 50 mg PO Q4H PRN PRN Reason: Anxiety Last Admin: 02/09/23 16:02 Dose: 50 mg Ibuprofen (Ibuprofen 600 Mg Tablet) 600 mg PO Q6H PRN PRN Reason: Pain, Moderate (Pain Scale 4-6 Last Admin: 01/31/23 21:14 Dose: 600 mg Lamotrigine (Lamotrigine 100 Mg Tablet) 100 mg PO BID [facility] Last Admin: 02/11/23 08:04 Dose: 100 mg Latanoprost (Latanoprost 0.005 % Ophth No 2.5 Ml Drops) 1 drop EYE-BOTH BEDTIME [facility] Last Admin: 02/10/23 20:56 Dose: 1 drop Lidocaine (Lidocaine 5 % Ointment 35 Gm) 1 appl TOPICAL Q6H PRN; Protocol PRN Reason: Hemorrhoid pain Last Admin: 02/11/23 12:31 Dose: 1 appl Multi-Ingred Cream/Lotion/Oil/Oint (Mineral Oil/Petrolatum,White 106 Gm Tube) 1 appl TOPICAL BID PRN; Protocol PRN Reason: dry skin Nortriptyline HCl (Nortriptyline Hcl 25 Mg Capsule) 50 mg PO BEDTIME [facility] Last Admin: 02/10/23 20:52 Dose: 50 mg Nystatin (Nystatin Powder 15 Gm Bottle) 1 appl TOPICAL BID [facility]; Protocol Last Admin: 02/11/23 08:05 Dose: 1 appl Olanzapine (Olanzapine 2.5 Mg Tablet) 2.5 mg PO DAILY [facility] Last Admin: 02/11/23 08:04 Dose: 2.5 mg Olanzapine (Olanzapine 2.5 Mg Tablet) 2.5 mg PO DAILY@1500 [facility] Last Admin: 02/10/23 14:56 Dose: 2.5 mg Olanzapine (Olanzapine 5 Mg Tablet) 5 mg PO BEDTIME [facility] Last Admin: 02/10/23 20:52 Dose: 5 mg Polyethylene Glycol (Polyethylene Glycol 3350 17 Gm Powd.Pack) 17 gm PO BID [facility] Last Admin: 02/11/23 08:05 Dose: 17 gm Senna/Docusate Sodium (Sennosides/Docusate Sodium Tablet) 2 tab PO BEDTIME [facility] Last Admin: 02/10/23 20:52 Dose: 2 tab Sodium Biphosphate/Sodium Phosphate (Sodium Phosphate,[place]-Dibasic 133 Ml Enema) 133 ml [place] ONCE PRN PRN Reason: Constipation Sodium Chloride (Sodium Chloride 0.65 % Nasal 44 Ml Sprbtl) 1 spray NOSTRIL-B Q1H PRN PRN Reason: Nasal Congestion Last Admin: 02/04/23 13:50 Dose: 1 spray Tamsulosin HCl (Tamsulosin Hcl 0.4 Mg Capsule) 0.4 mg PO DAILY [facility] Last Admin: 02/11/23 08:04 Dose: 0.4 mg Trazodone HCl (Trazodone Hcl 100 Mg Tablet) 200 mg PO BEDTIME [facility] Last Admin: 02/10/23 20:52 Dose: 200 mg Venlafaxine HCl (Venlafaxine Hcl Er 75 Mg Cap.Er.24h) 75 mg PO DAILY [facility] Last Admin: 02/11/23 08:03 Dose: 75 mg Allergies Allergies Allergy/AdvReac Type Severity Reaction Status Date / Time fentanyl [FENTANYL] Allergy Intermediate unknown Verified 04/08/22 07:00 Assessment & Plan Assessment & Plan (1) Major depressive disorder, recurrent severe without psychotic features: Status: Acute Code(s): F33.2 - Major depressive disorder, recurrent severe without psychotic features (2) Cognitive and neurobehavioral dysfunction following brain injury: Status: Acute Code(s): G31.89 - Other specified degenerative diseases of nervous system; F09 - Unspecified mental disorder due to known physiological condition; S06.9X9S - Unspecified intracranial injury with loss of consciousness of unspecified duration, sequela (3) Swallowing dysfunction: Status: Acute Code(s): R13.10 - Dysphagia, unspecified (4) Personality disorder in adult: Status: Acute Code(s): F60.9 - Personality disorder, unspecified Plan The patient is a middle-age male with a past history of major depressive disorder, alcohol use disorder, TBI admitted for suicidality. He had been in the facility sterile times in the last year. Plan 1. Continue with same treatment. 2. Waiting for placement 3. Blood work for tomorrow. Reason for contiued inpatient stay Substantial Risk for: inability to function, rapid decompensation and med/psych decompensation Time Spent With Patient Time: Total time managing care of this patient today ____ minutes.
[2023-02-11] MEDS: Acetaminophen 325 MG TABLET 975 MG PO (14:39)
[2023-02-11] MEDS: ALPRAZolam 0.25 MG TABLET PO (14:50)
[2023-02-11 18:00] VITALS: BP 129/65; PULSE 78; RESP 20; TEMP 35.7; O2SAT 93
[2023-02-11] MEDS: ALPRAZolam 0.5 MG TABLET PO (21:08)
[2023-02-11] MEDS: Latanoprost 0.005 % Ophth Sol 2.5 ML DROPS 1 DROP EYE-BOTH (21:08)
[2023-02-11] MEDS: OLANZapine 5 MG TABLET PO (21:10)
[2023-02-11] MEDS: Sennosides/Docusate Sodium TABLET 2 TAB PO (21:10)
[2023-02-11] MEDS: Nortriptyline HCl 25 MG CAPSULE 50 MG PO (21:10)
[2023-02-11] MEDS: traZODone HCL 100 MG TABLET 200 MG PO (21:11)
[2023-02-12] MEDS: Acetaminophen 325 MG TABLET 975 MG PO ×2 (03:18→18:19)
[2023-02-12] MEDS: hydrOXYzine HCL 50 MG TABLET PO (03:18)
[2023-02-12 05:36] LABS: MANUAL DIFF FLAG NO
[2023-02-12 05:38] LABS: Basophils Absolute Auto 0.1 X10*3/uL (0.0-0.2); Eosinophils Absolute Auto 0.5 X10*3/uL (0.0-0.4); Eosinophils Percent Auto 9.9 % (0-4); Hematocrit 37.6 % (42.0-52.0); Hemoglobin 12.4 g/dl (14.0-18.0); Imm Gran Abs Auto 0.08 X10*3/uL (0.00-0.03); Imm Gran Pct Auto 1.5 % (0.0-0.4); Lymphocytes Absolute Auto 1.9 X10*3/uL (1.2-4.9); Lymphocytes Percent Auto 35.4 % (20-40); Mean Corpuscular Hemoglobin 31.2 pg (27.0-33.0); Mean Corpuscular Volume 94.5 fL (80.0-98.0); Mean Platelet Volume 9.6 fL (9.4-12.4); Monocytes Absolute Auto 0.7 X10*3/uL (0.1-1.2); Monocytes Percent Auto 12.4 % (2-11); Neutrophils Absolute Auto 2.1 x10*3/uL (2.0-8.3); Neutrophils Percent Auto 39.8 % (45-73); Platelet Count 142 X10*3/uL (160-400); Red Blood Count 3.98 X10*6/uL (4.60-5.80); Red Cell Distribution Width 12.4 % (11.0-16.0); White Blood Count 5.2 X10*3/uL (4.8-10.8)
[2023-02-12 05:46] LABS: Estimated Average Glucose 108 mg/dL; Hemoglobin A1c % 5.4 %
[2023-02-12 06:05] LABS: Alanine Aminotransferase 24 U/L (0-40); Albumin Level 3.7 g/dL (3.5-5.0); Alkaline Phosphatase 66 U/L (39-117); Anion Gap 13 (12-20); Aspartate Amino Transferase 19 U/L (5-37); Bilirubin Direct < 0.2 mg/dL (0.0-0.5); Bilirubin Total 0.5 mg/dL (0.0-1.0); Blood Urea Nitrogen 12 mg/dL (9-16); Calcium 8.9 mg/dL (8.4-10.2); Carbon Dioxide 27 mmol/L (22-29); Chloride 105 mmol/L (96-108); Cholesterol 177 mg/dL; Creatinine Clr Calc Pharmacy 104.6; Estimated Glomerular Filt Rate > 60; Gamma Glutamyl Transpeptidase 65 U/L (11-51); Glucose Random 84 mg/dL (60-115); HDL Cholesterol 40 mg/dL; LDL Cholesterol Calculated 120 mg/dl; Potassium 4.1 mmol/L (3.3-5.1); Sodium 141 mmol/L (135-145); Total Protein 5.9 g/dL (6.5-8.0); Triglycerides 89 mg/dL
[2023-02-12 07:00] VITALS: BMI 30.8
[2023-02-12 10:00] VITALS: BP 131/67; PULSE 75; RESP 18; TEMP 36.2; O2SAT 95
[2023-02-12] MEDS: polyethylene glycoL 3350 17 GM POWD.PACK PO ×2 (10:07→20:36)
[2023-02-12] MEDS: Gabapentin 100 MG CAPSULE PO ×3 (10:08→20:36)
[2023-02-12] MEDS: Venlafaxine HCl ER 75 MG CAP.ER.24H PO (10:09)
[2023-02-12] MEDS: Divalproex Sodium Sprinkles 125 MG CAP.DR.SPR 375 MG PO ×2 (10:09→20:36)
[2023-02-12] MEDS: lamoTRIgine 100 MG TABLET PO ×2 (10:09→20:37)
[2023-02-12] MEDS: amLODIPine Besylate 5 MG TABLET PO (10:09)
[2023-02-12] MEDS: OLANZapine 2.5 MG TABLET PO ×2 (10:09→16:12)
[2023-02-12] MEDS: Tamsulosin HCL 0.4 MG CAPSULE PO (10:09)
[2023-02-12] MEDS: Lidocaine 5 % Ointment 35 GM 1 APPL TOPICAL (10:12)
[2023-02-12] MEDS: Nystatin Powder 15 GM BOTTLE 1 APPL TOPICAL ×2 (10:12→20:38)
--- NOTE | 2023-02-12 12:13 | HO.PSYCHPN ---
Subjective Subjective Date of Service: 02/12/23 Reason For Visit: Depression hopelessness irritability Subjective Notes: Conditional Voluntary Interim History: The nursing staff reported the patient was very angry and cranking the morning since the TV was 2 loud last night. He refused his medications in the morning and vital signs and he verbalized very hurtful and nasty comments to peers and staff. He had been incontinent last night, most likely on retaliation for setting boundaries. Mental Status Exam Mental Status Exam Patient Appearance: Well Grooomed and Appropriate Patient Orientation: Person and Situation Level of Consciousness: Awake and Appropriate Patient Behavior: Guarded and Passive Mood Description: Withdrawn and Constricted Affect Description: Constricted Patient Cognition Impaired: Yes Ability to Follow Directions: Good Speech Pattern: Clear Hallucinations: None Delusions: Not Present Thought Process: Distracted and Linear Thought Content: positive for Ary and positive for Circumstantial Judgement: Poor Diagnostics Vital Signs (24Hr): Vital Signs - 24 hr 02/11/23 18:00 02/12/23 10:00 Temperature 96.3 F L 97.1 F Pulse Rate 78 75 Respiratory Rate 20 18 Blood Pressure 129/65 131/67 Pulse Oximetry 93 95 Oxygen Delivery Method Room Air Room Air BMI result Body Mass Index 31.0 Labs 02/12/23 05:27 02/12/23 05:27 Labs: Laboratory Results - last 48 hr 02/12/23 02/12/23 02/12/23 05:27 05:27 05:27 WBC 5.2 RBC 3.98 L Hgb 12.4 L Hct 37.6 L MCV 94.5 MCH 31.2 MCHC 33.0 RDW 12.4 Plt Count 142 L MPV 9.6 Immature Gran % (Auto) 1.5 H Neut % (Auto) 39.8 L Lymph % (Auto) 35.4 Summers % (Auto) 12.4 H Eos % (Auto) 9.9 H Baso % (Auto) 1.0 Lymph # (Auto) 1.9 Summers # (Auto) 0.7 Eos # (Auto) 0.5 H Baso # (Auto) 0.1 Abs Immat Gran (auto) 0.08 H Absolute Neuts (auto) 2.1 Absolute Nucleated RBC 0.000 Nucleated RBC % (auto) 0.0 Sodium 141 Potassium 4.1 Chloride 105 Carbon Dioxide 27 Anion Gap 13 BUN 12 Creatinine 0.89 Estim Creat Clear Calc 104.6 Estimated GFR > 60 Random Glucose 84 Estimat Average Glucose 108 Hemoglobin A1c % 5.4 Calcium 8.9 D Total Bilirubin 0.5 Direct Bilirubin < 0.2 GGT 65 H AST 19 ALT 24 Alkaline Phosphatase 66 Total Protein 5.9 L Albumin 3.7 Triglycerides 89 Cholesterol 177 LDL Cholesterol, Calc 120 HDL Cholesterol 40 Imaging Radiology Impressions: ITS Impressions Chest X-Ray 10/20/22 15:45 IMPRESSION: 1. Low lung volumes with bibasilar linear disc atelectasis versus scarring. 2. No airspace consolidation or effusion. Head CT 11/08/22 12:29 IMPRESSION: No acute intracranial hemorrhage or territorial infarction. Stable chronic postoperative changes with gliosis and encephalomalacia in the right frontal and right temporal lobes. Ex vacuo dilatation of the ventricles and diffuse parenchymal volume loss. Right-sided craniotomy changes. Chest X-Ray 11/12/22 10:32 IMPRESSION: Hypoexpanded lungs with bibasilar platelike atelectasis. Brain MRI 11/12/22 13:15 IMPRESSION: 1. No demonstrated acute intracranial abnormalities. 2. Chronic encephalomalacia of the right temporal, right frontal, and left occipital lobes. Small regions of chronic encephalomalacia in the parasagittal aspects of the bilateral parietal lobes. Moderate underlying microangiopathy and generalized cerebral volume loss. Chest X-Ray 11/14/22 15:52 IMPRESSION: Low lung volumes, bibasilar subsegmental atelectasis and slight elevation of the right hemidiaphragm similar to previous exam. Modified Barium Swallow 11/21/22 15:11 IMPRESSION: Laryngeal penetration on several occasions but no laryngeal aspiration. Mild retention of solid food in the valleculae which cleared with subsequent oral administration of water or thin barium. Correlate with speech therapy results. Orbit CT 01/23/23 14:05 IMPRESSION: - No definite significant intraorbital soft tissue findings to assessment is limited on a noncontrast CT of the orbits. No retrobulbar mass lesions and no cellulitic changes appreciated. - There are large fluid levels within the left maxillary sinus and within the right frontal sinus the can be correlated for clinical signs of acute sinusitis. - A peripherally ossified structure extending from the dorsal margin of the right nasolacrimal duct into the right maxillary sinus is stable when compared to examinations dated back to 08/24/2008 favoring a benign etiology. Medications Medications Current Medications Acetaminophen (Acetaminophen 325 Mg Tablet) 975 mg PO Q6H PRN PRN Reason: Headache/Pain Mild Scale (1-3) Last Admin: 02/12/23 03:18 Dose: 975 mg Albuterol Sulfate (Albuterol Sulfate 90 Mcg 8 Gm Inhaler) 2 puff INHALE Q6H PRN PRN Reason: Wheezing Alprazolam (Alprazolam 0.5 Mg Tablet) 0.5 mg PO BEDTIME [facility] Last Admin: 02/11/23 21:08 Dose: 0.5 mg Alprazolam (Alprazolam 0.25 Mg Tablet) 0.25 mg PO Q4H PRN PRN Reason: Anxiety Last Admin: 02/11/23 14:50 Dose: 0.25 mg Amlodipine Besylate (Amlodipine Besylate 5 Mg Tablet) 5 mg PO DAILY [facility]; Protocol Last Admin: 02/12/23 10:09 Dose: 5 mg Bisacodyl (Bisacodyl 10 Mg Supp.Rect) 10 mg [place] DAILY PRN PRN Reason: Constipation Divalproex Sodium (Divalproex Sodium Sprinkles 125 Mg [place].) 375 mg PO BID [facility] Last Admin: 02/12/23 10:09 Dose: 375 mg Gabapentin (Gabapentin 100 Mg Capsule) 100 mg PO TID [facility] Last Admin: 02/12/23 10:08 Dose: 100 mg Hydroxyzine HCl (Hydroxyzine Hcl 50 Mg Tablet) 50 mg PO Q4H PRN PRN Reason: Anxiety Last Admin: 02/12/23 03:18 Dose: 50 mg Ibuprofen (Ibuprofen 600 Mg Tablet) 600 mg PO Q6H PRN PRN Reason: Pain, Moderate (Pain Scale 4-6 Last Admin: 01/31/23 21:14 Dose: 600 mg Lamotrigine (Lamotrigine 100 Mg Tablet) 100 mg PO BID [facility] Last Admin: 02/12/23 10:09 Dose: 100 mg Latanoprost (Latanoprost 0.005 % Ophth No 2.5 Ml Drops) 1 drop EYE-BOTH BEDTIME [facility] Last Admin: 02/11/23 21:08 Dose: 1 drop Lidocaine (Lidocaine 5 % Ointment 35 Gm) 1 appl TOPICAL Q6H PRN; Protocol PRN Reason: Hemorrhoid pain Last Admin: 02/12/23 10:12 Dose: 1 appl Multi-Ingred Cream/Lotion/Oil/Oint (Mineral Oil/Petrolatum,White 106 Gm Tube) 1 appl TOPICAL BID PRN; Protocol PRN Reason: dry skin Nortriptyline HCl (Nortriptyline Hcl 25 Mg Capsule) 50 mg PO BEDTIME [facility] Last Admin: 02/11/23 21:10 Dose: 50 mg Nystatin (Nystatin Powder 15 Gm Bottle) 1 appl TOPICAL BID [facility]; Protocol Last Admin: 02/12/23 10:12 Dose: 1 appl Olanzapine (Olanzapine 2.5 Mg Tablet) 2.5 mg PO DAILY [facility] Last Admin: 02/12/23 10:09 Dose: 2.5 mg Olanzapine (Olanzapine 2.5 Mg Tablet) 2.5 mg PO DAILY@1500 [facility] Last Admin: 02/11/23 14:39 Dose: 2.5 mg Olanzapine (Olanzapine 5 Mg Tablet) 5 mg PO BEDTIME [facility] Last Admin: 02/11/23 21:10 Dose: 5 mg Polyethylene Glycol (Polyethylene Glycol 3350 17 Gm Powd.Pack) 17 gm PO BID [facility] Last Admin: 02/12/23 10:07 Dose: 17 gm Senna/Docusate Sodium (Sennosides/Docusate Sodium Tablet) 2 tab PO BEDTIME [facility] Last Admin: 02/11/23 21:10 Dose: 2 tab Sodium Biphosphate/Sodium Phosphate (Sodium Phosphate,[place]-Dibasic 133 Ml Enema) 133 ml [place] ONCE PRN PRN Reason: Constipation Sodium Chloride (Sodium Chloride 0.65 % Nasal 44 Ml Sprbtl) 1 spray NOSTRIL-B Q1H PRN PRN Reason: Nasal Congestion Last Admin: 02/04/23 13:50 Dose: 1 spray Tamsulosin HCl (Tamsulosin Hcl 0.4 Mg Capsule) 0.4 mg PO DAILY [facility] Last Admin: 02/12/23 10:09 Dose: 0.4 mg Trazodone HCl (Trazodone Hcl 100 Mg Tablet) 200 mg PO BEDTIME [facility] Last Admin: 02/11/23 21:11 Dose: 200 mg Venlafaxine HCl (Venlafaxine Hcl Er 75 Mg Cap.Er.24h) 75 mg PO DAILY [facility] Last Admin: 02/12/23 10:09 Dose: 75 mg Allergies Allergies Allergy/AdvReac Type Severity Reaction Status Date / Time fentanyl [FENTANYL] Allergy Intermediate unknown Verified 05/24/22 07:00 Assessment & Plan Assessment & Plan (1) Major depressive disorder, recurrent severe without psychotic features: Status: Acute Code(s): F33.2 - Major depressive disorder, recurrent severe without psychotic features (2) Cognitive and neurobehavioral dysfunction following brain injury: Status: Acute Code(s): G31.89 - Other specified degenerative diseases of nervous system; F09 - Unspecified mental disorder due to known physiological condition; S06.9X9S - Unspecified intracranial injury with loss of consciousness of unspecified duration, sequela (3) Swallowing dysfunction: Status: Acute Code(s): R13.10 - Dysphagia, unspecified (4) Personality disorder in adult: Status: Acute Code(s): F60.9 - Personality disorder, unspecified Plan The patient is a middle-age male with a past history of major depressive disorder, alcohol use disorder, TBI admitted for suicidality. He had been in the facility sterile times in the last year. Plan 1. Continue with same treatment. 2. Waiting for placement 3. Blood work ordered for today in the morning. It came back within normal limits Reason for contiued inpatient stay Substantial Risk for: inability to function, rapid decompensation and med/psych decompensation Time Spent With Patient Time: Total time managing care of this patient today __20__ minutes.
[2023-02-12 18:00] VITALS: BP 140/76; PULSE 74; RESP 18; TEMP 36.8; O2SAT 96
[2023-02-12] MEDS: traZODone HCL 100 MG TABLET 200 MG PO (20:37)
[2023-02-12] MEDS: OLANZapine 5 MG TABLET PO (20:37)
[2023-02-12] MEDS: Latanoprost 0.005 % Ophth Sol 2.5 ML DROPS 1 DROP EYE-BOTH (20:37)
[2023-02-12] MEDS: Nortriptyline HCl 25 MG CAPSULE 50 MG PO (20:37)
[2023-02-12] MEDS: ALPRAZolam 0.5 MG TABLET PO (21:24)
[2023-02-13] MEDS: Sodium Chloride 0.65 % Nasal 44 ML SPRBTL 1 SPRAY NOSTRIL-B (06:10)
[2023-02-13] MEDS: amLODIPine Besylate 5 MG TABLET PO (08:24)
[2023-02-13] MEDS: Gabapentin 100 MG CAPSULE PO ×3 (08:25→21:11)
[2023-02-13] MEDS: lamoTRIgine 100 MG TABLET PO ×2 (08:25→21:13)
[2023-02-13] MEDS: Tamsulosin HCL 0.4 MG CAPSULE PO (08:25)
[2023-02-13] MEDS: Divalproex Sodium Sprinkles 125 MG CAP.DR.SPR 375 MG PO ×2 (08:25→21:10)
[2023-02-13] MEDS: polyethylene glycoL 3350 17 GM POWD.PACK PO (08:26)
[2023-02-13] MEDS: Venlafaxine HCl ER 75 MG CAP.ER.24H PO (08:26)
[2023-02-13] MEDS: OLANZapine 2.5 MG TABLET PO ×2 (08:26→15:47)
[2023-02-13] MEDS: Lidocaine 5 % Ointment 35 GM 1 APPL TOPICAL ×2 (08:27→21:20)
[2023-02-13 08:30] VITALS: BP 131/68; PULSE 82; RESP 16; TEMP 36.4; O2SAT 95
--- NOTE | 2023-02-13 11:56 | P.PNPSI_ITS ---
Subjective Subjective Date of Service: 02/13/23 Reason For Visit: Depression hopelessness irritability Subjective Notes: Conditional Voluntary Interim History: The nursing staff reported no changes in his mental status, he has been compliant with treatment. On interview the patient denies new symptoms, waiting for placement Mental Status Exam Mental Status Exam Patient Appearance: Well Grooomed and Appropriate Patient Orientation: Person and Situation Level of Consciousness: Awake and Appropriate Patient Behavior: Guarded and Passive Mood Description: Withdrawn Affect Description: Constricted Patient Cognition Impaired: No Ability to Follow Directions: Good Speech Pattern: Clear Hallucinations: None Delusions: Not Present Thought Process: Distracted and Linear Thought Content: positive for Emmett and positive for Circumstantial Judgement: Fair Diagnostics Vital Signs (24Hr): Vital Signs - 24 hr 02/12/23 18:00 02/13/23 08:30 Temperature 98.2 F 97.6 F Pulse Rate 74 82 Respiratory Rate 18 16 Blood Pressure 140/76 H 131/68 Pulse Oximetry 96 95 Oxygen Delivery Method Room Air Room Air BMI result Body Mass Index 30.8 Labs 02/12/23 05:27 02/12/23 05:27 Labs: Laboratory Results - last 48 hr 02/12/23 02/12/23 02/12/23 05:27 05:27 05:27 WBC 5.2 RBC 3.98 L Hgb 12.4 L Hct 37.6 L MCV 94.5 MCH 31.2 MCHC 33.0 RDW 12.4 Plt Count 142 L MPV 9.6 Immature Gran % (Auto) 1.5 H Neut % (Auto) 39.8 L Lymph % (Auto) 35.4 [place] % (Auto) 12.4 H Eos % (Auto) 9.9 H Baso % (Auto) 1.0 Lymph # (Auto) 1.9 [place] # (Auto) 0.7 Eos # (Auto) 0.5 H Baso # (Auto) 0.1 Abs Immat Gran (auto) 0.08 H Absolute Neuts (auto) 2.1 Absolute Nucleated RBC 0.000 Nucleated RBC % (auto) 0.0 Sodium 141 Potassium 4.1 Chloride 105 Carbon Dioxide 27 Anion Gap 13 BUN 12 Creatinine 0.89 Estim Creat Clear Calc 104.6 Estimated GFR > 60 Random Glucose 84 Estimat Average Glucose 108 Hemoglobin A1c % 5.4 Calcium 8.9 D Total Bilirubin 0.5 Direct Bilirubin < 0.2 GGT 65 H AST 19 ALT 24 Alkaline Phosphatase 66 Total Protein 5.9 L Albumin 3.7 Triglycerides 89 Cholesterol 177 LDL Cholesterol, Calc 120 HDL Cholesterol 40 Imaging Radiology Impressions: ITS Impressions Chest X-Ray 10/20/22 15:45 IMPRESSION: 1. Low lung volumes with bibasilar linear disc atelectasis versus scarring. 2. No airspace consolidation or effusion. Head CT 11/08/22 12:29 IMPRESSION: No acute intracranial hemorrhage or territorial infarction. Stable chronic postoperative changes with gliosis and encephalomalacia in the right frontal and right temporal lobes. Ex vacuo dilatation of the ventricles and diffuse parenchymal volume loss. Right-sided craniotomy changes. Chest X-Ray 11/12/22 10:32 IMPRESSION: Hypoexpanded lungs with bibasilar platelike atelectasis. Brain MRI 11/12/22 13:15 IMPRESSION: 1. No demonstrated acute intracranial abnormalities. 2. Chronic encephalomalacia of the right temporal, right frontal, and left occipital lobes. Small regions of chronic encephalomalacia in the parasagittal aspects of the bilateral parietal lobes. Moderate underlying microangiopathy and generalized cerebral volume loss. Chest X-Ray 11/14/22 15:52 IMPRESSION: Low lung volumes, bibasilar subsegmental atelectasis and slight elevation of the right hemidiaphragm similar to previous exam. Modified Barium Swallow 11/21/22 15:11 IMPRESSION: Laryngeal penetration on several occasions but no laryngeal aspiration. Mild retention of solid food in the valleculae which cleared with subsequent oral administration of water or thin barium. Correlate with speech therapy results. Orbit CT 01/23/23 14:05 IMPRESSION: - No definite significant intraorbital soft tissue findings to assessment is limited on a noncontrast CT of the orbits. No retrobulbar mass lesions and no cellulitic changes appreciated. - There are large fluid levels within the left maxillary sinus and within the right frontal sinus the can be correlated for clinical signs of acute sinusitis. - A peripherally ossified structure extending from the dorsal margin of the right nasolacrimal duct into the right maxillary sinus is stable when compared to examinations dated back to 08/24/2008 favoring a benign etiology. Medications Medications Current Medications Acetaminophen (Acetaminophen 325 Mg Tablet) 975 mg PO Q6H PRN PRN Reason: Headache/Pain Mild Scale (1-3) Last Admin: 02/12/23 18:19 Dose: 975 mg Albuterol Sulfate (Albuterol Sulfate 90 Mcg 8 Gm Inhaler) 2 puff INHALE Q6H PRN PRN Reason: Wheezing Alprazolam (Alprazolam 0.5 Mg Tablet) 0.5 mg PO BEDTIME [facility] Last Admin: 02/12/23 21:24 Dose: 0.5 mg Alprazolam (Alprazolam 0.25 Mg Tablet) 0.25 mg PO Q4H PRN PRN Reason: Anxiety Amlodipine Besylate (Amlodipine Besylate 5 Mg Tablet) 5 mg PO DAILY [facility]; Protocol Last Admin: 02/13/23 08:24 Dose: 5 mg Bisacodyl (Bisacodyl 10 Mg Supp.Rect) 10 mg IA DAILY PRN PRN Reason: Constipation Divalproex Sodium (Divalproex Sodium Sprinkles 125 Mg ) 375 mg PO BID [facility] Last Admin: 02/13/23 08:25 Dose: 375 mg Gabapentin (Gabapentin 100 Mg Capsule) 100 mg PO TID [facility] Last Admin: 02/13/23 08:25 Dose: 100 mg Hydroxyzine HCl (Hydroxyzine Hcl 50 Mg Tablet) 50 mg PO Q4H PRN PRN Reason: Anxiety Last Admin: 02/12/23 03:18 Dose: 50 mg Ibuprofen (Ibuprofen 600 Mg Tablet) 600 mg PO Q6H PRN PRN Reason: Pain, Moderate (Pain Scale 4-6 Last Admin: 01/31/23 21:14 Dose: 600 mg Lamotrigine (Lamotrigine 100 Mg Tablet) 100 mg PO BID [facility] Last Admin: 02/13/23 08:25 Dose: 100 mg Latanoprost (Latanoprost 0.005 % Ophth No 2.5 Ml Drops) 1 drop EYE-BOTH BEDTIME [facility] Last Admin: 02/12/23 20:37 Dose: 1 drop Lidocaine (Lidocaine 5 % Ointment 35 Gm) 1 appl TOPICAL Q6H PRN; Protocol PRN Reason: Hemorrhoid pain Last Admin: 02/13/23 08:27 Dose: 1 appl Multi-Ingred Cream/Lotion/Oil/Oint (Mineral Oil/Petrolatum,White 106 Gm Tube) 1 appl TOPICAL BID PRN; Protocol PRN Reason: dry skin Nortriptyline HCl (Nortriptyline Hcl 25 Mg Capsule) 50 mg PO BEDTIME [facility] Last Admin: 02/12/23 20:37 Dose: 50 mg Nystatin (Nystatin Powder 15 Gm Bottle) 1 appl TOPICAL BID [facility]; Protocol Last Admin: 02/12/23 20:38 Dose: 1 appl Olanzapine (Olanzapine 2.5 Mg Tablet) 2.5 mg PO DAILY [facility] Last Admin: 02/13/23 08:26 Dose: 2.5 mg Olanzapine (Olanzapine 2.5 Mg Tablet) 2.5 mg PO DAILY@1500 [facility] Last Admin: 02/12/23 16:12 Dose: 2.5 mg Olanzapine (Olanzapine 5 Mg Tablet) 5 mg PO BEDTIME [facility] Last Admin: 02/12/23 20:37 Dose: 5 mg Polyethylene Glycol (Polyethylene Glycol 3350 17 Gm Powd.Pack) 17 gm PO BID [facility] Last Admin: 02/13/23 08:26 Dose: 17 gm Senna/Docusate Sodium (Sennosides/Docusate Sodium Tablet) 2 tab PO BEDTIME [facility] Last Admin: 02/12/23 20:47 Dose: Not Given Sodium Biphosphate/Sodium Phosphate (Sodium Phosphate,[place]-Dibasic 133 Ml Enema) 133 ml [place] ONCE PRN PRN Reason: Constipation Sodium Chloride (Sodium Chloride 0.65 % Nasal 44 Ml Sprbtl) 1 spray NOSTRIL-B Q1H PRN PRN Reason: Nasal Congestion Last Admin: 02/13/23 06:10 Dose: 1 spray Tamsulosin HCl (Tamsulosin Hcl 0.4 Mg Capsule) 0.4 mg PO DAILY [facility] Last Admin: 02/13/23 08:25 Dose: 0.4 mg Trazodone HCl (Trazodone Hcl 100 Mg Tablet) 200 mg PO BEDTIME [facility] Last Admin: 02/12/23 20:37 Dose: 200 mg Venlafaxine HCl (Venlafaxine Hcl Er 75 Mg Cap.Er.24h) 75 mg PO DAILY [facility] Last Admin: 02/13/23 08:26 Dose: 75 mg Allergies Allergies Allergy/AdvReac Type Severity Reaction Status Date / Time fentanyl [FENTANYL] Allergy Intermediate unknown Verified 04/08/22 07:00 Assessment & Plan Assessment & Plan (1) Major depressive disorder, recurrent severe without psychotic features: Status: Acute Code(s): F33.2 - Major depressive disorder, recurrent severe without psychotic features (2) Cognitive and neurobehavioral dysfunction following brain injury: Status: Acute Code(s): G31.89 - Other specified degenerative diseases of nervous system; F09 - Unspecified mental disorder due to known physiological condition; S06.9X9S - Unspecified intracranial injury with loss of consciousness of unspecified duration, sequela (3) Swallowing dysfunction: Status: Acute Code(s): R13.10 - Dysphagia, unspecified (4) Personality disorder in adult: Status: Acute Code(s): F60.9 - Personality disorder, unspecified Plan The patient is a middle-age male with a past history of major depressive disorder, alcohol use disorder, TBI admitted for suicidality. He had been in the facility sterile times in the last year. Plan 1. Continue with same treatment. 2. Waiting for placement Reason for contiued inpatient stay Substantial Risk for: inability to function, rapid decompensation and med/psych decompensation Time Spent With Patient Time: Total time managing care of this patient today ____ minutes.
[2023-02-13 18:00] VITALS: BP 167/84; PULSE 70; RESP 16; TEMP 36.5; O2SAT 95
[2023-02-13] MEDS: Acetaminophen 325 MG TABLET 975 MG PO (19:48)
[2023-02-13] MEDS: Nortriptyline HCl 25 MG CAPSULE 50 MG PO (21:10)
[2023-02-13] MEDS: OLANZapine 5 MG TABLET PO (21:11)
[2023-02-13] MEDS: traZODone HCL 100 MG TABLET 200 MG PO (21:11)
[2023-02-13] MEDS: ALPRAZolam 0.5 MG TABLET PO (21:12)
[2023-02-13] MEDS: Sennosides/Docusate Sodium TABLET 2 TAB PO (21:12)
[2023-02-13] MEDS: Nystatin Powder 15 GM BOTTLE 1 APPL TOPICAL (21:14)
[2023-02-13] MEDS: Latanoprost 0.005 % Ophth Sol 2.5 ML DROPS 1 DROP EYE-BOTH (21:15)
[2023-02-14 06:00] VITALS: BP 140/82; PULSE 78; RESP 18; TEMP 36.3; O2SAT 96
[2023-02-14] MEDS: amLODIPine Besylate 5 MG TABLET PO (09:30)
[2023-02-14] MEDS: OLANZapine 2.5 MG TABLET PO ×2 (09:30→14:57)
[2023-02-14] MEDS: Gabapentin 100 MG CAPSULE PO ×3 (09:31→23:17)
[2023-02-14] MEDS: lamoTRIgine 100 MG TABLET PO ×2 (09:31→23:16)
[2023-02-14] MEDS: Divalproex Sodium Sprinkles 125 MG CAP.DR.SPR 375 MG PO ×2 (09:31→23:13)
[2023-02-14] MEDS: Tamsulosin HCL 0.4 MG CAPSULE PO (09:31)
[2023-02-14] MEDS: Venlafaxine HCl ER 75 MG CAP.ER.24H PO (09:31)
[2023-02-14] MEDS: polyethylene glycoL 3350 17 GM POWD.PACK PO ×2 (09:31→23:25)
[2023-02-14] MEDS: Lidocaine 5 % Ointment 35 GM 1 APPL TOPICAL ×3 (14:57→23:55)
[2023-02-14] MEDS: ALPRAZolam 0.25 MG TABLET PO (15:23)
[2023-02-14] MEDS: hydrOXYzine HCL 50 MG TABLET PO (16:46)
[2023-02-14 18:00] VITALS: BP 142/70; PULSE 75; RESP 18; TEMP 36.6; O2SAT 97
--- NOTE | 2023-02-14 19:59 | HO.PSYCHPN ---
Subjective Subjective Date of Service: 02/14/23 Reason For Visit: Depression hopelessness irritability Interim History: The nursing staff reported no changes in his mental status, he has been compliant with treatment. On interview the patient denies new symptoms, waiting for placement Medication Compliance: Yes Side effects from medications: No Attending Groups: Yes Review of Systems Acute medical concerns: No Review of Systems Review of Systems Yes all other systems are reviewed and are negative, Unobtainable due to mental condition and Unobtainable due to mental status Mental Status Exam Mental Status Exam Narrative: Patient Appearance: Well Grooomed and Appropriate Patient Orientation: Person and Situation Level of Consciousness: Awake and Appropriate Patient Behavior: Guarded and Passive Behavior Comments: Mood Description: Withdrawn Affect Description: Constricted Patient Cognition Impaired: No Ability to Follow Directions: Good Speech Pattern: Clear Memory Description: Episodic Impaired and Working Impaired Judgement: Fair Diagnostics Vital Signs (24Hr): Vital Signs - 24 hr 02/14/23 06:00 Temperature 97.4 F Pulse Rate 78 Respiratory Rate 18 Blood Pressure 140/82 H Pulse Oximetry 96 Oxygen Delivery Method Room Air BMI result Body Mass Index 30.8 Labs 02/12/23 05:27 02/12/23 05:27 Imaging Radiology Impressions: ITS Impressions Chest X-Ray 10/20/22 15:45 IMPRESSION: 1. Low lung volumes with bibasilar linear disc atelectasis versus scarring. 2. No airspace consolidation or effusion. Head CT 11/08/22 12:29 IMPRESSION: No acute intracranial hemorrhage or territorial infarction. Stable chronic postoperative changes with gliosis and encephalomalacia in the right frontal and right temporal lobes. Ex vacuo dilatation of the ventricles and diffuse parenchymal volume loss. Right-sided craniotomy changes. Chest X-Ray 11/12/22 10:32 IMPRESSION: Hypoexpanded lungs with bibasilar platelike atelectasis. Brain MRI 11/12/22 13:15 IMPRESSION: 1. No demonstrated acute intracranial abnormalities. 2. Chronic encephalomalacia of the right temporal, right frontal, and left occipital lobes. Small regions of chronic encephalomalacia in the parasagittal aspects of the bilateral parietal lobes. Moderate underlying microangiopathy and generalized cerebral volume loss. Chest X-Ray 11/14/22 15:52 IMPRESSION: Low lung volumes, bibasilar subsegmental atelectasis and slight elevation of the right hemidiaphragm similar to previous exam. Modified Barium Swallow 11/21/22 15:11 IMPRESSION: Laryngeal penetration on several occasions but no laryngeal aspiration. Mild retention of solid food in the valleculae which cleared with subsequent oral administration of water or thin barium. Correlate with speech therapy results. Orbit CT 01/23/23 14:05 IMPRESSION: - No definite significant intraorbital soft tissue findings to assessment is limited on a noncontrast CT of the orbits. No retrobulbar mass lesions and no cellulitic changes appreciated. - There are large fluid levels within the left maxillary sinus and within the right frontal sinus the can be correlated for clinical signs of acute sinusitis. - A peripherally ossified structure extending from the dorsal margin of the right nasolacrimal duct into the right maxillary sinus is stable when compared to examinations dated back to 08/24/2008 favoring a benign etiology. Medications Medications Current Medications Acetaminophen (Acetaminophen 325 Mg Tablet) 975 mg PO Q6H PRN PRN Reason: Headache/Pain Mild Scale (1-3) Last Admin: 02/13/23 19:48 Dose: 975 mg Albuterol Sulfate (Albuterol Sulfate 90 Mcg 8 Gm Inhaler) 2 puff INHALE Q6H PRN PRN Reason: Wheezing Alprazolam (Alprazolam 0.5 Mg Tablet) 0.5 mg PO BEDTIME [facility] Last Admin: 02/13/23 21:12 Dose: 0.5 mg Alprazolam (Alprazolam 0.25 Mg Tablet) 0.25 mg PO Q4H PRN PRN Reason: Anxiety Last Admin: 02/14/23 15:23 Dose: 0.25 mg Amlodipine Besylate (Amlodipine Besylate 5 Mg Tablet) 5 mg PO DAILY [facility]; Protocol Last Admin: 02/14/23 09:30 Dose: 5 mg Bisacodyl (Bisacodyl 10 Mg Supp.Rect) 10 mg [place] DAILY PRN PRN Reason: Constipation Divalproex Sodium (Divalproex Sodium Sprinkles 125 Mg ) 375 mg PO BID [facility] Last Admin: 02/14/23 09:31 Dose: 375 mg Gabapentin (Gabapentin 100 Mg Capsule) 100 mg PO TID [facility] Last Admin: 02/14/23 14:57 Dose: 100 mg Hydroxyzine HCl (Hydroxyzine Hcl 50 Mg Tablet) 50 mg PO Q4H PRN PRN Reason: Anxiety Last Admin: 02/14/23 16:46 Dose: 50 mg Ibuprofen (Ibuprofen 600 Mg Tablet) 600 mg PO Q6H PRN PRN Reason: Pain, Moderate (Pain Scale 4-6 Last Admin: 01/31/23 21:14 Dose: 600 mg Lamotrigine (Lamotrigine 100 Mg Tablet) 100 mg PO BID [facility] Last Admin: 02/14/23 09:31 Dose: 100 mg Latanoprost (Latanoprost 0.005 % Ophth No 2.5 Ml Drops) 1 drop EYE-BOTH BEDTIME [facility] Last Admin: 02/13/23 21:15 Dose: 1 drop Lidocaine (Lidocaine 5 % Ointment 35 Gm) 1 appl TOPICAL Q6H PRN; Protocol PRN Reason: Hemorrhoid pain Last Admin: 02/14/23 14:57 Dose: 1 appl Multi-Ingred Cream/Lotion/Oil/Oint (Mineral Oil/Petrolatum,White 106 Gm Tube) 1 appl TOPICAL BID PRN; Protocol PRN Reason: dry skin Nortriptyline HCl (Nortriptyline Hcl 25 Mg Capsule) 50 mg PO BEDTIME [facility] Last Admin: 02/13/23 21:10 Dose: 50 mg Nystatin (Nystatin Powder 15 Gm Bottle) 1 appl TOPICAL BID [facility]; Protocol Last Admin: 02/14/23 09:53 Dose: Not Given Olanzapine (Olanzapine 2.5 Mg Tablet) 2.5 mg PO DAILY [facility] Last Admin: 02/14/23 09:30 Dose: 2.5 mg Olanzapine (Olanzapine 2.5 Mg Tablet) 2.5 mg PO DAILY@1500 [facility] Last Admin: 02/14/23 14:57 Dose: 2.5 mg Olanzapine (Olanzapine 5 Mg Tablet) 5 mg PO BEDTIME [facility] Last Admin: 02/13/23 21:11 Dose: 5 mg Polyethylene Glycol (Polyethylene Glycol 3350 17 Gm Powd.Pack) 17 gm PO BID [facility] Last Admin: 02/14/23 09:31 Dose: 17 gm Senna/Docusate Sodium (Sennosides/Docusate Sodium Tablet) 2 tab PO BEDTIME [facility] Last Admin: 02/13/23 21:12 Dose: 1 tab Sodium Biphosphate/Sodium Phosphate (Sodium Phosphate,[place]-Dibasic 133 Ml Enema) 133 ml [place] ONCE PRN PRN Reason: Constipation Sodium Chloride (Sodium Chloride 0.65 % Nasal 44 Ml Sprbtl) 1 spray NOSTRIL-B Q1H PRN PRN Reason: Nasal Congestion Last Admin: 02/13/23 06:10 Dose: 1 spray Tamsulosin HCl (Tamsulosin Hcl 0.4 Mg Capsule) 0.4 mg PO DAILY [facility] Last Admin: 02/14/23 09:31 Dose: 0.4 mg Trazodone HCl (Trazodone Hcl 100 Mg Tablet) 200 mg PO BEDTIME [facility] Last Admin: 02/13/23 21:11 Dose: 200 mg Venlafaxine HCl (Venlafaxine Hcl Er 75 Mg Cap.Er.24h) 75 mg PO DAILY [facility] Last Admin: 02/14/23 09:31 Dose: 75 mg Allergies Allergies Allergy/AdvReac Type Severity Reaction Status Date / Time fentanyl [FENTANYL] Allergy Intermediate unknown Verified 04/08/22 07:00 Assessment & Plan Assessment & Plan (1) Major depressive disorder, recurrent severe without psychotic features: Status: Acute Code(s): F33.2 - Major depressive disorder, recurrent severe without psychotic features (2) Cognitive and neurobehavioral dysfunction following brain injury: Status: Acute Code(s): G31.89 - Other specified degenerative diseases of nervous system; F09 - Unspecified mental disorder due to known physiological condition; S06.9X9S - Unspecified intracranial injury with loss of consciousness of unspecified duration, sequela (3) Swallowing dysfunction: Status: Acute Code(s): R13.10 - Dysphagia, unspecified (4) Personality disorder in adult: Status: Acute Code(s): F60.9 - Personality disorder, unspecified Plan The patient is a middle-age male with a past history of major depressive disorder, alcohol use disorder, TBI admitted for suicidality. He had been in the facility sterile times in the last year. Plan 1. Continue with same treatment. 2. Waiting for placement Reason for contiued inpatient stay Substantial Risk for: stable for discharge Time Spent With Patient Time: Total time managing care of this patient today ____ minutes.
[2023-02-14 22:50] VITALS: BP 182/80; BP 193/89; PULSE 74; RESP 18; TEMP 36.2; O2SAT 98
[2023-02-14] MEDS: Acetaminophen 325 MG TABLET 975 MG PO (23:11)
[2023-02-14] MEDS: Nortriptyline HCl 25 MG CAPSULE 50 MG PO (23:13)
[2023-02-14] MEDS: Sennosides/Docusate Sodium TABLET 2 TAB PO (23:14)
[2023-02-14] MEDS: traZODone HCL 100 MG TABLET 200 MG PO (23:15)
[2023-02-14] MEDS: OLANZapine 5 MG TABLET PO (23:16)
[2023-02-14] MEDS: ALPRAZolam 0.5 MG TABLET PO (23:16)
[2023-02-14] MEDS: Latanoprost 0.005 % Ophth Sol 2.5 ML DROPS 1 DROP EYE-BOTH (23:44)
[2023-02-14 23:53] VITALS: BP 198/94; PULSE 85; RESP 20; TEMP 36.8
[2023-02-14] MEDS: Nystatin Powder 15 GM BOTTLE 1 APPL TOPICAL (23:57)
--- NOTE | 2023-02-15 | PC.NURSE ---
Assumed care at 11:00. Patient alert and oriented x4. After lunch, expressed anxiety about being at this facility for a long time, and hopelessness about being discharged. Patient was comforted and encouraged, and was assisted to do some exercises of focusing on breathing and slowing breathing to help with anxiety. Patient reported this helped. Patient also expressed some ruminative thoughts about his bowels. PRN lidocaine as ordered, patient does appear to have an external hemorrhoid and some discomfort associated. Tranferred via miriam-steady to toilet with good effect and coordination. Patient afterwards asked for pRN xanax for anxiety, and was administered this afternoon per orders see emar. Then was seen in [facility], and was being verbally beligerant and having hostile outburst towards the nomi in the green gown, to which he was referring to multiple other patients, and was assisted to eat off to the side in his own space. Patient endorsed interest in taking his PRN atarax during dinner, see Emar, and this was with good effect. Then patient retired to his room and was seen relaxing in bed. At 22:21, patient was noted to be on the floor near his bedroom door, in his pullups, pulling his torso off the ground using his right hand pulling against the door, and was asked to refrain from moving as was made comfortable on floor with pillows, patient reported hitting posterior head on floor while he was trying to slide himself to the floor from the bed, and also reports having struck his medial lumbar spine and his bilateral hips on the ground, and now reporting 7/10 pain anterior right head, 2/10 posterior medial head; 7/10 lower back pain; 7/10 bilateral hip pain. Patient encouraged to remain still after padded with cusions and supervised. MD was notified, and new orders for C-spine collar and Cspine CT as well as CT head, and bilateral hip xrays. Patient was fitted with C-collar and c-spine precautions maintained, transferred via backboard and stretcher to ED, images obtained, patient returned to bed, and MD at bedside clearing c-spine collar at shift change, and night nurse is administering all the PO meds that were held secondary to fall and the maintenance of c-spine precautions. Nursing packing shed supervisor notified. Patient has had some hypertension this evening surrounding the fall: 198/94 with HR 85 at time of fall, 193/89 and 182/80 on opposite arms in follow-up, MD notified.
--- NOTE | 2023-02-15 06:26 | P.EN_ITS ---
Event Note Date of Service: 02/15/23 Event Note: I was asked to see the patient after mechanical fall. Patient is in, with a neck / spine collar and place. Patient reports that he tried to lower himself from the bed to the ground, he lost his household personal assistant and fell, hitting his head. He states that his head hit the ground but gently, he also reports that he hit his left hip and has slight pain and soreness in his hip. He reports no loss of consciousness, no dizziness, no chest pain, no palpitation . He reports a chronic headache that has not worsened. Denies any nausea or vomiting. Exam is nonfocal, cranial nerves 2-12 intact. No neurological deficits. Has no limited range of motion in lower extremities. Hips abduct and adduct appropriately, strength is 5/5 in all extremities. Imaging reviewed shows no acute abnormality. Discussed with patient that if he wants to get out of bed he needs to call for help, placed on fall precaution, this time patient does not require or need any further intervention. Will remove neck/spine collar Time Spent With Patient Time: Total time managing care of this patient today ____ minutes.
[2023-02-15 08:34] VITALS: BP 127/71; PULSE 68; RESP 20; TEMP 36.4; O2SAT 95
[2023-02-15] MEDS: polyethylene glycoL 3350 17 GM POWD.PACK PO (08:37)
[2023-02-15] MEDS: Divalproex Sodium Sprinkles 125 MG CAP.DR.SPR 375 MG PO ×2 (08:38→20:33)
[2023-02-15] MEDS: amLODIPine Besylate 5 MG TABLET PO (08:38)
[2023-02-15] MEDS: Tamsulosin HCL 0.4 MG CAPSULE PO (08:38)
[2023-02-15] MEDS: Gabapentin 100 MG CAPSULE PO ×3 (08:39→20:31)
[2023-02-15] MEDS: lamoTRIgine 100 MG TABLET PO ×2 (08:39→20:32)
[2023-02-15] MEDS: OLANZapine 2.5 MG TABLET PO ×2 (08:39→14:14)
[2023-02-15] MEDS: Venlafaxine HCl ER 75 MG CAP.ER.24H PO (08:39)
[2023-02-15] MEDS: Nystatin Powder 15 GM BOTTLE 1 APPL TOPICAL (08:43)
--- NOTE | 2023-02-15 14:04 | P.PNPSI_ITS ---
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 and reported pain in hip and spine; pt paced in neck collar and placed on stretcher - CT scan of head and neck/spine ordered; xray of bilat hips xray due to hx of hip replacement and fall/pain. Hospital consult placed- Dr Crump saw patient. Imaging shows no acute changes. Pt reporting less pain today . no changes . pt slept 6 hours last night. vitals good. pt stating he is feeling better. urged pt to ask for help before hgetting up. Medication Compliance: Yes Side effects from medications: No Attending Groups: Intermittent Review of Systems Acute medical concerns: No Review of Systems Review of Systems Yes all other systems are reviewed and are negative, Unobtainable due to mental condition and Unobtainable due to mental status Mental Status Exam Mental Status Exam Narrative: Patient Appearance: Well Grooomed and Appropriate Patient Orientation: Person and Situation Level of Consciousness: Awake and Appropriate Patient Behavior: Guarded and Passive Behavior Comments: Mood Description: Withdrawn Affect Description: Constricted Patient Cognition Impaired: No Ability to Follow Directions: Good Speech Pattern: Clear Memory Description: Episodic Impaired and Working Impaired Judgement: Fair Diagnostics Vital Signs (24Hr): Vital Signs - 24 hr 02/14/23 18:00 02/14/23 23:53 02/14/23 22:50 Temperature 97.8 F 98.2 F 97.2 F Pulse Rate 75 85 74 Respiratory Rate 18 20 18 Blood Pressure 142/70 H 198/94 H 193/89 H Pulse Oximetry 97 98 Oxygen Delivery Method Room Air Room Air 02/14/23 22:50 02/15/23 08:34 Temperature 97.5 F Pulse Rate 68 Respiratory Rate 20 Blood Pressure 182/80 H 127/71 Pulse Oximetry 95 Oxygen Delivery Method Room Air BMI result Body Mass Index 30.8 Labs 02/12/23 05:27 02/12/23 05:27 Imaging Radiology Impressions: ITS Impressions Chest X-Ray 10/20/22 15:45 IMPRESSION: 1. Low lung volumes with bibasilar linear disc atelectasis versus scarring. 2. No airspace consolidation or effusion. Head CT 11/08/22 12:29 IMPRESSION: No acute intracranial hemorrhage or territorial infarction. Stable chronic postoperative changes with gliosis and encephalomalacia in the right frontal and right temporal lobes. Ex vacuo dilatation of the ventricles and diffuse parenchymal volume loss. Right-sided craniotomy changes. Chest X-Ray 11/12/22 10:32 IMPRESSION: Hypoexpanded lungs with bibasilar platelike atelectasis. Brain MRI 11/12/22 13:15 IMPRESSION: 1. No demonstrated acute intracranial abnormalities. 2. Chronic encephalomalacia of the right temporal, right frontal, and left occipital lobes. Small regions of chronic encephalomalacia in the parasagittal aspects of the bilateral parietal lobes. Moderate underlying microangiopathy and generalized cerebral volume loss. Chest X-Ray 11/14/22 15:52 IMPRESSION: Low lung volumes, bibasilar subsegmental atelectasis and slight elevation of the right hemidiaphragm similar to previous exam. Modified Barium Swallow 11/21/22 15:11 IMPRESSION: Laryngeal penetration on several occasions but no laryngeal aspiration. Mild retention of solid food in the valleculae which cleared with subsequent oral administration of water or thin barium. Correlate with speech therapy results. Orbit CT 01/23/23 14:05 IMPRESSION: - No definite significant intraorbital soft tissue findings to assessment is limited on a noncontrast CT of the orbits. No retrobulbar mass lesions and no cellulitic changes appreciated. - There are large fluid levels within the left maxillary sinus and within the right frontal sinus the can be correlated for clinical signs of acute sinusitis. - A peripherally ossified structure extending from the dorsal margin of the right nasolacrimal duct into the right maxillary sinus is stable when compared to examinations dated back to 08/24/2008 favoring a benign etiology. Cervical Spine CT 02/14/23 22:15 IMPRESSION: 1. No acute intracranial abnormality. Stable postsurgical changes with right frontotemporal encephalomalacia, global volume loss, and extraocular dilatation of the right lateral ventricle. 2. No cervical spine fracture or traumatic malalignment. Head CT 02/14/23 22:15 IMPRESSION: 1. No acute intracranial abnormality. Stable postsurgical changes with right frontotemporal encephalomalacia, global volume loss, and extraocular dilatation of the right lateral ventricle. 2. No cervical spine fracture or traumatic malalignment. Hip/Pelvis X-Ray 02/14/23 22:25 IMPRESSION: Moderate degenerative changes of the right hip with loss of superolateral joint space. Similar chronic posttraumatic deformity of the right femoral neck with chronic foreshortening. Status post left total hip arthroplasty in unchanged alignment however the lack of a crosstable lateral view limits assessment for dislocation. No acute fracture or dislocation appreciated on the available views. Medications Medications Current Medications Acetaminophen (Acetaminophen 325 Mg Tablet) 975 mg PO Q6H PRN PRN Reason: Headache/Pain Mild Scale (1-3) Last Admin: 02/14/23 23:11 Dose: 975 mg Albuterol Sulfate (Albuterol Sulfate 90 Mcg 8 Gm Inhaler) 2 puff INHALE Q6H PRN PRN Reason: Wheezing Alprazolam (Alprazolam 0.5 Mg Tablet) 0.5 mg PO BEDTIME [facility] Last Admin: 02/14/23 23:16 Dose: 0.5 mg Alprazolam (Alprazolam 0.25 Mg Tablet) 0.25 mg PO Q4H PRN PRN Reason: Anxiety Last Admin: 02/14/23 15:23 Dose: 0.25 mg Amlodipine Besylate (Amlodipine Besylate 5 Mg Tablet) 5 mg PO DAILY [facility]; Protocol Last Admin: 02/15/23 08:38 Dose: 5 mg Bisacodyl (Bisacodyl 10 Mg Supp.Rect) 10 mg [place] DAILY PRN PRN Reason: Constipation Divalproex Sodium (Divalproex Sodium Sprinkles 125 Mg ) 375 mg PO BID [facility] Last Admin: 02/15/23 08:38 Dose: 375 mg Gabapentin (Gabapentin 100 Mg Capsule) 100 mg PO TID [facility] Last Admin: 02/15/23 08:39 Dose: 100 mg Hydroxyzine HCl (Hydroxyzine Hcl 50 Mg Tablet) 50 mg PO Q4H PRN PRN Reason: Anxiety Last Admin: 02/14/23 16:46 Dose: 50 mg Ibuprofen (Ibuprofen 600 Mg Tablet) 600 mg PO Q6H PRN PRN Reason: Pain, Moderate (Pain Scale 4-6 Last Admin: 01/31/23 21:14 Dose: 600 mg Lamotrigine (Lamotrigine 100 Mg Tablet) 100 mg PO BID [facility] Last Admin: 02/15/23 08:39 Dose: 100 mg Latanoprost (Latanoprost 0.005 % Ophth No 2.5 Ml Drops) 1 drop EYE-BOTH BEDTIME [facility] Last Admin: 02/14/23 23:44 Dose: 1 drop Lidocaine (Lidocaine 5 % Ointment 35 Gm) 1 appl TOPICAL Q6H PRN; Protocol PRN Reason: Hemorrhoid pain Last Admin: 02/14/23 23:55 Dose: 1 appl Multi-Ingred Cream/Lotion/Oil/Oint (Mineral Oil/Petrolatum,White 106 Gm Tube) 1 appl TOPICAL BID PRN; Protocol PRN Reason: dry skin Nortriptyline HCl (Nortriptyline Hcl 25 Mg Capsule) 50 mg PO BEDTIME [facility] Last Admin: 02/14/23 23:13 Dose: 50 mg Nystatin (Nystatin Powder 15 Gm Bottle) 1 appl TOPICAL BID [facility]; Protocol Last Admin: 02/15/23 08:43 Dose: 1 appl Olanzapine (Olanzapine 2.5 Mg Tablet) 2.5 mg PO DAILY [facility] Last Admin: 02/15/23 08:39 Dose: 2.5 mg Olanzapine (Olanzapine 2.5 Mg Tablet) 2.5 mg PO DAILY@1500 [facility] Last Admin: 02/14/23 14:57 Dose: 2.5 mg Olanzapine (Olanzapine 5 Mg Tablet) 5 mg PO BEDTIME [facility] Last Admin: 02/14/23 23:16 Dose: 5 mg Polyethylene Glycol (Polyethylene Glycol 3350 17 Gm Powd.Pack) 17 gm PO BID [facility] Last Admin: 02/15/23 08:37 Dose: 17 gm Senna/Docusate Sodium (Sennosides/Docusate Sodium Tablet) 2 tab PO BEDTIME [facility] Last Admin: 02/14/23 23:14 Dose: 1 tab Sodium Biphosphate/Sodium Phosphate (Sodium Phosphate,[place]-Dibasic 133 Ml Enema) 133 ml [place] ONCE PRN PRN Reason: Constipation Sodium Chloride (Sodium Chloride 0.65 % Nasal 44 Ml Sprbtl) 1 spray NOSTRIL-B Q1H PRN PRN Reason: Nasal Congestion Last Admin: 02/13/23 06:10 Dose: 1 spray Tamsulosin HCl (Tamsulosin Hcl 0.4 Mg Capsule) 0.4 mg PO DAILY [facility] Last Admin: 02/15/23 08:38 Dose: 0.4 mg Trazodone HCl (Trazodone Hcl 100 Mg Tablet) 200 mg PO BEDTIME [facility] Last Admin: 02/14/23 23:15 Dose: 200 mg Venlafaxine HCl (Venlafaxine Hcl Er 75 Mg Cap.Er.24h) 75 mg PO DAILY [facility] Last Admin: 02/15/23 08:39 Dose: 75 mg Allergies Allergies Allergy/AdvReac Type Severity Reaction Status Date / Time fentanyl [FENTANYL] Allergy Intermediate unknown Verified 04/08/22 07:00 Assessment & Plan Assessment & Plan (1) Major depressive disorder, recurrent severe without psychotic features: Status: Acute Code(s): F33.2 - Major depressive disorder, recurrent severe without psychotic features (2) Cognitive and neurobehavioral dysfunction following brain injury: Status: Acute Code(s): G31.89 - Other specified degenerative diseases of nervous system; F09 - Unspecified mental disorder due to known physiological condition; S06.9X9S - Unspecified intracranial injury with loss of consciousness of unspecified duration, sequela (3) Swallowing dysfunction: Status: Acute Code(s): R13.10 - Dysphagia, unspecified (4) Personality disorder in adult: Status: Acute Code(s): F60.9 - Personality disorder, unspecified Plan The patient is a middle-age male with a past history of major depressive disorder, alcohol use disorder, TBI admitted for suicidality. He had been in the facility sterile times in the last year. Plan 1. Continue with same treatment. 2. Waiting for placement Reason for contiued inpatient stay Substantial Risk for: inability to function and med/psych decompensation Time Spent With Patient Time: Total time managing care of this patient today ____ minutes.
[2023-02-15 18:00] VITALS: BP 135/64; PULSE 79; RESP 18; TEMP 36.6; O2SAT 99
[2023-02-15] MEDS: ALPRAZolam 0.5 MG TABLET PO (20:31)
[2023-02-15] MEDS: Nortriptyline HCl 25 MG CAPSULE 50 MG PO (20:31)
[2023-02-15] MEDS: Acetaminophen 325 MG TABLET 975 MG PO (20:31)
[2023-02-15] MEDS: OLANZapine 5 MG TABLET PO (20:32)
[2023-02-15] MEDS: Sennosides/Docusate Sodium TABLET 2 TAB PO (20:32)
[2023-02-15] MEDS: traZODone HCL 100 MG TABLET 200 MG PO (20:33)
[2023-02-15] MEDS: Lidocaine 5 % Ointment 35 GM 1 APPL TOPICAL (20:45)
[2023-02-16] MEDS: Acetaminophen 325 MG TABLET 975 MG PO ×2 (06:05→19:51)
[2023-02-16] MEDS: amLODIPine Besylate 5 MG TABLET PO (08:23)
[2023-02-16 08:45] VITALS: BP 145/76; PULSE 76; RESP 16; TEMP 36.3; O2SAT 96
[2023-02-16] MEDS: hydrOXYzine HCL 50 MG TABLET PO (11:25)
[2023-02-16] MEDS: Lidocaine 5 % Ointment 35 GM 1 APPL TOPICAL ×2 (12:39→21:10)
[2023-02-16] MEDS: Gabapentin 100 MG CAPSULE PO ×2 (15:03→21:03)
[2023-02-16] MEDS: OLANZapine 2.5 MG TABLET PO (15:03)
[2023-02-16 18:00] VITALS: BP 116/58; PULSE 99; RESP 16; TEMP 36.2; O2SAT 92
[2023-02-16] MEDS: ALPRAZolam 0.5 MG TABLET PO (19:51)
[2023-02-16] MEDS: Nortriptyline HCl 25 MG CAPSULE 50 MG PO (21:01)
--- NOTE | 2023-02-16 21:02 | HO.PSYCHPN ---
Subjective Subjective Date of Service: 02/16/23 Reason For Visit: Depression hopelessness irritability Subjective Notes: Conditional Voluntary Healthcare Proxy: No Guardianship: No Interim History: pt has been more reactive depressed does not like feeling out of control of his emotions Medication Compliance: Yes Side effects from medications: No Attending Groups: Intermittent Mental Status Exam Mental Status Exam Narrative: Patient Appearance: Well Grooomed and Appropriate Patient Orientation: Person and Situation Level of Consciousness: Awake and Appropriate Patient Behavior: Guarded and Passive Behavior Comments: Mood Description: Withdrawn and Depressed Affect Description: Constricted and Labile Patient Cognition Impaired: No Ability to Follow Directions: Good Speech Pattern: Clear Memory Description: Episodic Impaired and Working Impaired Depressive Symptoms: Increased Anxiety, Increased Irritability and Crying Spells Judgement: Fair Judgement and Insight: vague passive si intermittant hopelessness at times Diagnostics Vital Signs (24Hr): Vital Signs - 24 hr 02/16/23 08:45 Temperature 97.4 F Pulse Rate 76 Respiratory Rate 16 Blood Pressure 145/76 H Pulse Oximetry 96 Oxygen Delivery Method Room Air BMI result Body Mass Index 30.8 Labs 02/12/23 05:27 02/12/23 05:27 Imaging Radiology Impressions: ITS Impressions Chest X-Ray 10/20/22 15:45 IMPRESSION: 1. Low lung volumes with bibasilar linear disc atelectasis versus scarring. 2. No airspace consolidation or effusion. Head CT 11/08/22 12:29 IMPRESSION: No acute intracranial hemorrhage or territorial infarction. Stable chronic postoperative changes with gliosis and encephalomalacia in the right frontal and right temporal lobes. Ex vacuo dilatation of the ventricles and diffuse parenchymal volume loss. Right-sided craniotomy changes. Chest X-Ray 11/12/22 10:32 IMPRESSION: Hypoexpanded lungs with bibasilar platelike atelectasis. Brain MRI 11/12/22 13:15 IMPRESSION: 1. No demonstrated acute intracranial abnormalities. 2. Chronic encephalomalacia of the right temporal, right frontal, and left occipital lobes. Small regions of chronic encephalomalacia in the parasagittal aspects of the bilateral parietal lobes. Moderate underlying microangiopathy and generalized cerebral volume loss. Chest X-Ray 11/14/22 15:52 IMPRESSION: Low lung volumes, bibasilar subsegmental atelectasis and slight elevation of the right hemidiaphragm similar to previous exam. Modified Barium Swallow 11/21/22 15:11 IMPRESSION: Laryngeal penetration on several occasions but no laryngeal aspiration. Mild retention of solid food in the valleculae which cleared with subsequent oral administration of water or thin barium. Correlate with speech therapy results. Orbit CT 01/23/23 14:05 IMPRESSION: - No definite significant intraorbital soft tissue findings to assessment is limited on a noncontrast CT of the orbits. No retrobulbar mass lesions and no cellulitic changes appreciated. - There are large fluid levels within the left maxillary sinus and within the right frontal sinus the can be correlated for clinical signs of acute sinusitis. - A peripherally ossified structure extending from the dorsal margin of the right nasolacrimal duct into the right maxillary sinus is stable when compared to examinations dated back to 08/24/2008 favoring a benign etiology. Cervical Spine CT 02/14/23 22:15 IMPRESSION: 1. No acute intracranial abnormality. Stable postsurgical changes with right frontotemporal encephalomalacia, global volume loss, and extraocular dilatation of the right lateral ventricle. 2. No cervical spine fracture or traumatic malalignment. Head CT 02/14/23 22:15 IMPRESSION: 1. No acute intracranial abnormality. Stable postsurgical changes with right frontotemporal encephalomalacia, global volume loss, and extraocular dilatation of the right lateral ventricle. 2. No cervical spine fracture or traumatic malalignment. Hip/Pelvis X-Ray 02/14/23 22:25 IMPRESSION: Moderate degenerative changes of the right hip with loss of superolateral joint space. Similar chronic posttraumatic deformity of the right femoral neck with chronic foreshortening. Status post left total hip arthroplasty in unchanged alignment however the lack of a crosstable lateral view limits assessment for dislocation. No acute fracture or dislocation appreciated on the available views. Medications Medications Current Medications Acetaminophen (Acetaminophen 325 Mg Tablet) 975 mg PO Q6H PRN PRN Reason: Headache/Pain Mild Scale (1-3) Last Admin: 02/16/23 19:51 Dose: 975 mg Albuterol Sulfate (Albuterol Sulfate 90 Mcg 8 Gm Inhaler) 2 puff INHALE Q6H PRN PRN Reason: Wheezing Alprazolam (Alprazolam 0.5 Mg Tablet) 0.5 mg PO BEDTIME [facility] Last Admin: 02/16/23 19:51 Dose: 0.5 mg Alprazolam (Alprazolam 0.25 Mg Tablet) 0.25 mg PO Q4H PRN PRN Reason: Anxiety Last Admin: 02/14/23 15:23 Dose: 0.25 mg Amlodipine Besylate (Amlodipine Besylate 5 Mg Tablet) 5 mg PO DAILY [facility]; Protocol Last Admin: 02/16/23 08:23 Dose: 5 mg Bisacodyl (Bisacodyl 10 Mg Supp.Rect) 10 mg IN DAILY PRN PRN Reason: Constipation Divalproex Sodium (Divalproex Sodium Sprinkles 125 Mg Cap.) 375 mg PO BID [facility] Last Admin: 02/16/23 10:21 Dose: Not Given Gabapentin (Gabapentin 100 Mg Capsule) 100 mg PO TID [facility] Last Admin: 02/16/23 15:03 Dose: 100 mg Hydroxyzine HCl (Hydroxyzine Hcl 50 Mg Tablet) 50 mg PO Q4H PRN PRN Reason: Anxiety Last Admin: 02/16/23 11:25 Dose: 50 mg Ibuprofen (Ibuprofen 600 Mg Tablet) 600 mg PO Q6H PRN PRN Reason: Pain, Moderate (Pain Scale 4-6 Last Admin: 01/31/23 21:14 Dose: 600 mg Lamotrigine (Lamotrigine 100 Mg Tablet) 100 mg PO BID [facility] Last Admin: 02/16/23 10:22 Dose: Not Given Latanoprost (Latanoprost 0.005 % Ophth No 2.5 Ml Drops) 1 drop EYE-BOTH BEDTIME [facility] Last Admin: 02/15/23 20:52 Dose: Not Given Lidocaine (Lidocaine 5 % Ointment 35 Gm) 1 appl TOPICAL Q6H PRN; Protocol PRN Reason: Hemorrhoid pain Last Admin: 02/16/23 12:39 Dose: 1 appl Multi-Ingred Cream/Lotion/Oil/Oint (Mineral Oil/Petrolatum,White 106 Gm Tube) 1 appl TOPICAL BID PRN; Protocol PRN Reason: dry skin Nortriptyline HCl (Nortriptyline Hcl 25 Mg Capsule) 50 mg PO BEDTIME [facility] Last Admin: 02/15/23 20:31 Dose: 50 mg Nystatin (Nystatin Powder 15 Gm Bottle) 1 appl TOPICAL BID [facility]; Protocol Last Admin: 02/16/23 10:22 Dose: Not Given Olanzapine (Olanzapine 2.5 Mg Tablet) 2.5 mg PO DAILY [facility] Last Admin: 02/16/23 10:22 Dose: Not Given Olanzapine (Olanzapine 2.5 Mg Tablet) 2.5 mg PO DAILY@1500 [facility] Last Admin: 02/16/23 15:03 Dose: 2.5 mg Olanzapine (Olanzapine 5 Mg Tablet) 5 mg PO BEDTIME [facility] Last Admin: 02/15/23 20:32 Dose: 5 mg Polyethylene Glycol (Polyethylene Glycol 3350 17 Gm Powd.Pack) 17 gm PO BID [facility] Last Admin: 02/16/23 10:23 Dose: Not Given Senna/Docusate Sodium (Sennosides/Docusate Sodium Tablet) 2 tab PO BEDTIME [facility] Last Admin: 02/15/23 20:32 Dose: 2 tab Sodium Biphosphate/Sodium Phosphate (Sodium Phosphate,[place]-Dibasic 133 Ml Enema) 133 ml IN ONCE PRN PRN Reason: Constipation Sodium Chloride (Sodium Chloride 0.65 % Nasal 44 Ml Sprbtl) 1 spray NOSTRIL-B Q1H PRN PRN Reason: Nasal Congestion Last Admin: 02/13/23 06:10 Dose: 1 spray Tamsulosin HCl (Tamsulosin Hcl 0.4 Mg Capsule) 0.4 mg PO DAILY [facility] Last Admin: 02/16/23 10:23 Dose: Not Given Trazodone HCl (Trazodone Hcl 100 Mg Tablet) 200 mg PO BEDTIME [facility] Last Admin: 02/15/23 20:33 Dose: 200 mg Venlafaxine HCl (Venlafaxine Hcl Er 75 Mg Cap.Er.24h) 75 mg PO DAILY [facility] Last Admin: 02/16/23 10:23 Dose: Not Given Allergies Allergies Allergy/AdvReac Type Severity Reaction Status Date / Time fentanyl [FENTANYL] Allergy Intermediate unknown Verified 04/08/22 07:00 Assessment & Plan Assessment & Plan (1) Major depressive disorder, recurrent severe without psychotic features: Status: Acute Code(s): F33.2 - Major depressive disorder, recurrent severe without psychotic features (2) Cognitive and neurobehavioral dysfunction following brain injury: Status: Acute Code(s): G31.89 - Other specified degenerative diseases of nervous system; F09 - Unspecified mental disorder due to known physiological condition; S06.9X9S - Unspecified intracranial injury with loss of consciousness of unspecified duration, sequela Plan The patient is a middle-age male with a past history of major depressive disorder, alcohol use disorder, TBI admitted for suicidality. He had been in the facility sterile times in the last year. Plan 1. Continue with same treatment. 2. Waiting for placement 02/16/22 Pt has been more irritable dysphoric inc depakote ck level ck ammonia needs reassurance support which he finds helpful Patient educated on: diagnosis and medication risk/benefits Informed Consent: understands Reason for contiued inpatient stay Substantial Risk for: harm to self, inability to function and rapid decompensation Time Spent With Patient Time: Total time managing care of this patient today ____ minutes.
[2023-02-16] MEDS: Sennosides/Docusate Sodium TABLET 2 TAB PO (21:03)
[2023-02-16] MEDS: Divalproex Sodium Sprinkles 125 MG CAP.DR.SPR 375 MG PO (21:04)
[2023-02-16] MEDS: OLANZapine 5 MG TABLET PO (21:05)
[2023-02-16] MEDS: traZODone HCL 100 MG TABLET 200 MG PO (21:05)
[2023-02-16] MEDS: lamoTRIgine 100 MG TABLET PO (21:05)
[2023-02-16] MEDS: Nystatin Powder 15 GM BOTTLE 1 APPL TOPICAL (21:06)
[2023-02-16] MEDS: polyethylene glycoL 3350 17 GM POWD.PACK PO (21:06)
[2023-02-16] MEDS: Sodium Chloride 0.65 % Nasal 44 ML SPRBTL 1 SPRAY NOSTRIL-B (21:08)
[2023-02-16] MEDS: Latanoprost 0.005 % Ophth Sol 2.5 ML DROPS 1 DROP EYE-BOTH (21:09)
[2023-02-17] MEDS: Acetaminophen 325 MG TABLET 975 MG PO (04:15)
[2023-02-17] MEDS: Sodium Chloride 0.65 % Nasal 44 ML SPRBTL 1 SPRAY NOSTRIL-B ×2 (04:21→06:04)
[2023-02-17] MEDS: Ibuprofen 600 MG TABLET PO (06:02)
[2023-02-17 08:20] LABS: Ammonia 53 umol/L (13-55)
[2023-02-17] MEDS: Divalproex Sodium Sprinkles 125 MG CAP.DR.SPR 500 MG PO ×2 (08:50→21:22)
[2023-02-17] MEDS: lamoTRIgine 100 MG TABLET PO ×2 (08:51→21:22)
[2023-02-17] MEDS: Tamsulosin HCL 0.4 MG CAPSULE PO (08:51)
[2023-02-17] MEDS: OLANZapine 2.5 MG TABLET PO ×2 (08:51→14:30)
[2023-02-17] MEDS: Venlafaxine HCl ER 75 MG CAP.ER.24H PO (08:51)
[2023-02-17] MEDS: amLODIPine Besylate 5 MG TABLET PO (08:52)
[2023-02-17 09:00] VITALS: BP 115/75; PULSE 80; RESP 18; TEMP 36; O2SAT 98
[2023-02-17 10:27] LABS: Valproate 25.2 mcg/mL (50.0-100.0)
--- NOTE | 2023-02-17 13:10 | P.PNPSI_ITS ---
Subjective Subjective Date of Service: 02/17/23 Reason For Visit: Depression hopelessness irritability Subjective Notes: Conditional Voluntary Healthcare Proxy: No Guardianship: No Interim History: pt has difficulty with mood lability which is quite distressing for him Medication Compliance: Yes Attending Groups: Yes Mental Status Exam Mental Status Exam Narrative: Patient Appearance: Well Grooomed and Appropriate Patient Orientation: Person and Situation Level of Consciousness: Awake and Appropriate Patient Behavior: Talkative and Impulsive Behavior Comments: Mood Description: Withdrawn, Depressed, Labile and Apprehensive Affect Description: Constricted and Labile Patient Cognition Impaired: No Ability to Follow Directions: Good Speech Pattern: Clear Memory Description: Episodic Impaired and Working Impaired Thought Process: Rumination Thought Content: positive for Circumstantial and positive for Perseveration Depressive Symptoms: Increased Anxiety, Increased Irritability, Crying Spells, Feelings of Worthlessness and Thoughts of /Suicide Judgement: Fair Judgement and Insight: vague passive si intermittant hopelessness at times this cont to be true Diagnostics Vital Signs (24Hr): Vital Signs - 24 hr 02/16/23 18:00 02/17/23 09:00 Temperature 97.1 F 96.8 F Pulse Rate 99 80 Respiratory Rate 16 18 Blood Pressure 116/58 L 115/75 Pulse Oximetry 92 98 Oxygen Delivery Method Room Air Room Air BMI result Body Mass Index 30.8 Labs 02/12/23 05:27 02/12/23 05:27 Labs: Laboratory Results - last 48 hr 02/17/23 02/17/23 07:58 07:58 Ammonia 53 Valproic Acid 25.2 L Imaging Radiology Impressions: ITS Impressions Chest X-Ray 10/20/22 15:45 IMPRESSION: 1. Low lung volumes with bibasilar linear disc atelectasis versus scarring. 2. No airspace consolidation or effusion. Head CT 11/08/22 12:29 IMPRESSION: No acute intracranial hemorrhage or territorial infarction. Stable chronic postoperative changes with gliosis and encephalomalacia in the right frontal and right temporal lobes. Ex vacuo dilatation of the ventricles and diffuse parenchymal volume loss. Right-sided craniotomy changes. Chest X-Ray 11/12/22 10:32 IMPRESSION: Hypoexpanded lungs with bibasilar platelike atelectasis. Brain MRI 11/12/22 13:15 IMPRESSION: 1. No demonstrated acute intracranial abnormalities. 2. Chronic encephalomalacia of the right temporal, right frontal, and left occipital lobes. Small regions of chronic encephalomalacia in the parasagittal aspects of the bilateral parietal lobes. Moderate underlying microangiopathy and generalized cerebral volume loss. Chest X-Ray 11/14/22 15:52 IMPRESSION: Low lung volumes, bibasilar subsegmental atelectasis and slight elevation of the right hemidiaphragm similar to previous exam. Modified Barium Swallow 11/21/22 15:11 IMPRESSION: Laryngeal penetration on several occasions but no laryngeal aspiration. Mild retention of solid food in the valleculae which cleared with subsequent oral administration of water or thin barium. Correlate with speech therapy results. Orbit CT 01/23/23 14:05 IMPRESSION: - No definite significant intraorbital soft tissue findings to assessment is limited on a noncontrast CT of the orbits. No retrobulbar mass lesions and no cellulitic changes appreciated. - There are large fluid levels within the left maxillary sinus and within the right frontal sinus the can be correlated for clinical signs of acute sinusitis. - A peripherally ossified structure extending from the dorsal margin of the right nasolacrimal duct into the right maxillary sinus is stable when compared to examinations dated back to 08/24/2008 favoring a benign etiology. Cervical Spine CT 02/14/23 22:15 IMPRESSION: 1. No acute intracranial abnormality. Stable postsurgical changes with right frontotemporal encephalomalacia, global volume loss, and extraocular dilatation of the right lateral ventricle. 2. No cervical spine fracture or traumatic malalignment. Head CT 02/14/23 22:15 IMPRESSION: 1. No acute intracranial abnormality. Stable postsurgical changes with right frontotemporal encephalomalacia, global volume loss, and extraocular dilatation of the right lateral ventricle. 2. No cervical spine fracture or traumatic malalignment. Hip/Pelvis X-Ray 02/14/23 22:25 IMPRESSION: Moderate degenerative changes of the right hip with loss of superolateral joint space. Similar chronic posttraumatic deformity of the right femoral neck with chronic foreshortening. Status post left total hip arthroplasty in unchanged alignment however the lack of a crosstable lateral view limits assessment for dislocation. No acute fracture or dislocation appreciated on the available views. Medications Medications Current Medications Acetaminophen (Acetaminophen 325 Mg Tablet) 975 mg PO Q6H PRN PRN Reason: Headache/Pain Mild Scale (1-3) Last Admin: 02/17/23 04:15 Dose: 975 mg Albuterol Sulfate (Albuterol Sulfate 90 Mcg 8 Gm Inhaler) 2 puff INHALE Q6H PRN PRN Reason: Wheezing Alprazolam (Alprazolam 0.5 Mg Tablet) 0.5 mg PO BEDTIME [facility] Last Admin: 02/16/23 19:51 Dose: 0.5 mg Alprazolam (Alprazolam 0.25 Mg Tablet) 0.25 mg PO Q4H PRN PRN Reason: Anxiety Last Admin: 02/14/23 15:23 Dose: 0.25 mg Amlodipine Besylate (Amlodipine Besylate 5 Mg Tablet) 5 mg PO DAILY [facility]; Protocol Last Admin: 02/17/23 08:52 Dose: 5 mg Bisacodyl (Bisacodyl 10 Mg Supp.Rect) 10 mg [place] DAILY PRN PRN Reason: Constipation Divalproex Sodium (Divalproex Sodium Sprinkles 125 Mg Cap.Spr) 500 mg PO BID [facility] Last Admin: 02/17/23 08:50 Dose: 500 mg Hydroxyzine HCl (Hydroxyzine Hcl 50 Mg Tablet) 50 mg PO Q4H PRN PRN Reason: Anxiety Last Admin: 02/16/23 11:25 Dose: 50 mg Ibuprofen (Ibuprofen 600 Mg Tablet) 600 mg PO Q6H PRN PRN Reason: Pain, Moderate (Pain Scale 4-6 Last Admin: 02/17/23 06:02 Dose: 600 mg Lamotrigine (Lamotrigine 100 Mg Tablet) 100 mg PO BID [facility] Last Admin: 02/17/23 08:51 Dose: 100 mg Latanoprost (Latanoprost 0.005 % Ophth No 2.5 Ml Drops) 1 drop EYE-BOTH BEDTIME [facility] Last Admin: 02/16/23 21:09 Dose: 1 drop Lidocaine (Lidocaine 5 % Ointment 35 Gm) 1 appl TOPICAL Q6H PRN; Protocol PRN Reason: Hemorrhoid pain Last Admin: 02/16/23 21:10 Dose: 1 appl Multi-Ingred Cream/Lotion/Oil/Oint (Mineral Oil/Petrolatum,White 106 Gm Tube) 1 appl TOPICAL BID PRN; Protocol PRN Reason: dry skin Nortriptyline HCl (Nortriptyline Hcl 25 Mg Capsule) 50 mg PO BEDTIME [facility] Last Admin: 02/16/23 21:01 Dose: 50 mg Nystatin (Nystatin Powder 15 Gm Bottle) 1 appl TOPICAL BID [facility]; Protocol Last Admin: 02/17/23 08:53 Dose: Not Given Olanzapine (Olanzapine 2.5 Mg Tablet) 2.5 mg PO DAILY [facility] Last Admin: 02/17/23 08:51 Dose: 2.5 mg Olanzapine (Olanzapine 2.5 Mg Tablet) 2.5 mg PO DAILY@1500 [facility] Last Admin: 02/16/23 15:03 Dose: 2.5 mg Olanzapine (Olanzapine 5 Mg Tablet) 5 mg PO BEDTIME [facility] Last Admin: 02/16/23 21:05 Dose: 5 mg Polyethylene Glycol (Polyethylene Glycol 3350 17 Gm Powd.Pack) 17 gm PO BID [facility] Last Admin: 02/17/23 08:59 Dose: Not Given Senna/Docusate Sodium (Sennosides/Docusate Sodium Tablet) 2 tab PO BEDTIME [facility] Last Admin: 02/16/23 21:03 Dose: 2 tab Sodium Biphosphate/Sodium Phosphate (Sodium Phosphate,[place]-Dibasic 133 Ml Enema) 133 ml [place] ONCE PRN PRN Reason: Constipation Sodium Chloride (Sodium Chloride 0.65 % Nasal 44 Ml Sprbtl) 1 spray NOSTRIL-B Q1H PRN PRN Reason: Nasal Congestion Last Admin: 02/17/23 06:04 Dose: 1 spray Tamsulosin HCl (Tamsulosin Hcl 0.4 Mg Capsule) 0.4 mg PO DAILY [facility] Last Admin: 02/17/23 08:51 Dose: 0.4 mg Trazodone HCl (Trazodone Hcl 100 Mg Tablet) 200 mg PO BEDTIME [facility] Last Admin: 02/16/23 21:05 Dose: 200 mg Venlafaxine HCl (Venlafaxine Hcl Er 75 Mg Cap.Er.24h) 75 mg PO DAILY [facility] Last Admin: 02/17/23 08:51 Dose: 75 mg Allergies Allergies Allergy/AdvReac Type Severity Reaction Status Date / Time fentanyl [FENTANYL] Allergy Intermediate unknown Verified 04/08/22 07:00 Assessment & Plan Assessment & Plan (1) Major depressive disorder, recurrent severe without psychotic features: Status: Acute Code(s): F33.2 - Major depressive disorder, recurrent severe without psychotic features (2) Cognitive and neurobehavioral dysfunction following brain injury: Status: Acute Code(s): G31.89 - Other specified degenerative diseases of nervous system; F09 - Unspecified mental disorder due to known physiological condition; S06.9X9S - Unspecified intracranial injury with loss of consciousness of unspecified du ration, sequela Plan The patient is a middle-age male with a past history of major depressive disorder, alcohol use disorder, TBI admitted for suicidality. He had been in the facility sterile times in the last year. Plan 1. Continue with same treatment. 2. Waiting for placement 02/16/22 Pt has been more irritable dysphoric inc depakote ck level ck ammonia needs reassurance support which he finds helpful 02/17/22 pt has been inc depakote 500 bid has had lability periods of despair Reason for contiued inpatient stay Substantial Risk for: harm to self, inability to function and rapid decompensation Time Spent With Patient Time: Total time managing care of this patient today ____ minutes.
[2023-02-17 18:00] VITALS: BP 140/84; PULSE 74; RESP 17; TEMP 36.7; O2SAT 96
[2023-02-17] MEDS: ALPRAZolam 0.5 MG TABLET PO (21:22)
[2023-02-17] MEDS: traZODone HCL 100 MG TABLET 200 MG PO (21:22)
[2023-02-17] MEDS: OLANZapine 5 MG TABLET PO (21:22)
[2023-02-17] MEDS: Lidocaine 5 % Ointment 35 GM 1 APPL TOPICAL (21:23)
[2023-02-17] MEDS: Latanoprost 0.005 % Ophth Sol 2.5 ML DROPS 1 DROP EYE-BOTH (21:23)
[2023-02-17] MEDS: Nystatin Powder 15 GM BOTTLE 1 APPL TOPICAL (21:23)
[2023-02-17] MEDS: Nortriptyline HCl 25 MG CAPSULE 50 MG PO (21:23)
[2023-02-18] MEDS: hydrOXYzine HCL 50 MG TABLET PO ×2 (01:03→22:12)
[2023-02-18 06:00] VITALS: BP 159/77; PULSE 73; RESP 16; TEMP 36.5; O2SAT 94
[2023-02-18] MEDS: guaiFENesin DM 100/10/5 ML 5 ML SYRUP PO ×2 (06:51→22:20)
[2023-02-18] MEDS: OLANZapine 2.5 MG TABLET PO ×2 (09:05→16:34)
[2023-02-18] MEDS: Divalproex Sodium Sprinkles 125 MG CAP.DR.SPR 500 MG PO ×2 (09:05→20:12)
[2023-02-18] MEDS: Tamsulosin HCL 0.4 MG CAPSULE PO (09:05)
[2023-02-18] MEDS: Venlafaxine HCl ER 75 MG CAP.ER.24H PO (09:05)
[2023-02-18] MEDS: amLODIPine Besylate 5 MG TABLET PO (09:05)
[2023-02-18] MEDS: lamoTRIgine 100 MG TABLET PO ×2 (09:06→20:14)
[2023-02-18] MEDS: polyethylene glycoL 3350 17 GM POWD.PACK PO (09:10)
--- NOTE | 2023-02-18 10:04 | P.PNPSI_ITS ---
Subjective Subjective Date of Service: 02/18/23 Reason For Visit: Depression hopelessness irritability Subjective Notes: Conditional Voluntary Healthcare Proxy: No Guardianship: No Interim History: pt somewhat better today has had ic irritability Mental Status Exam Mental Status Exam Narrative: Patient Appearance: Well Grooomed and Appropriate Patient Orientation: Person and Situation Level of Consciousness: Awake and Appropriate Patient Behavior: Talkative and Impulsive Behavior Comments: Mood Description: Withdrawn, Depressed, Labile and Apprehensive Affect Description: Constricted and Labile Patient Cognition Impaired: No Ability to Follow Directions: Good Speech Pattern: Clear Memory Description: Episodic Impaired and Working Impaired Thought Process: Rumination Thought Content: positive for Circumstantial and positive for Perseveration Depressive Symptoms: Increased Anxiety, Increased Irritability, Crying Spells, Feelings of Worthlessness and Thoughts of /Suicide Judgement: Fair Judgement and Insight: vague passive si intermittant hopelessness at times this cont to be true Diagnostics Vital Signs (24Hr): Vital Signs - 24 hr 02/17/23 18:00 Temperature 98.0 F Pulse Rate 74 Respiratory Rate 17 Blood Pressure 140/84 H Pulse Oximetry 96 Oxygen Delivery Method Room Air BMI result Body Mass Index 30.8 Labs 02/12/23 05:27 02/12/23 05:27 Labs: Laboratory Results - last 48 hr 02/17/23 02/17/23 07:58 07:58 Ammonia 53 Valproic Acid 25.2 L Imaging Radiology Impressions: ITS Impressions Chest X-Ray 10/20/22 15:45 IMPRESSION: 1. Low lung volumes with bibasilar linear disc atelectasis versus scarring. 2. No airspace consolidation or effusion. Head CT 11/08/22 12:29 IMPRESSION: No acute intracranial hemorrhage or territorial infarction. Stable chronic postoperative changes with gliosis and encephalomalacia in the right frontal and right temporal lobes. Ex vacuo dilatation of the ventricles and diffuse parenchymal volume loss. Right-sided craniotomy changes. Chest X-Ray 11/12/22 10:32 IMPRESSION: Hypoexpanded lungs with bibasilar platelike atelectasis. Brain MRI 11/12/22 13:15 IMPRESSION: 1. No demonstrated acute intracranial abnormalities. 2. Chronic encephalomalacia of the right temporal, right frontal, and left occipital lobes. Small regions of chronic encephalomalacia in the parasagittal aspects of the bilateral parietal lobes. Moderate underlying microangiopathy and generalized cerebral volume loss. Chest X-Ray 11/14/22 15:52 IMPRESSION: Low lung volumes, bibasilar subsegmental atelectasis and slight elevation of the right hemidiaphragm similar to previous exam. Modified Barium Swallow 11/21/22 15:11 IMPRESSION: Laryngeal penetration on several occasions but no laryngeal aspiration. Mild retention of solid food in the valleculae which cleared with subsequent oral administration of water or thin barium. Correlate with speech therapy results. Orbit CT 01/23/23 14:05 IMPRESSION: - No definite significant intraorbital soft tissue findings to assessment is limited on a noncontrast CT of the orbits. No retrobulbar mass lesions and no cellulitic changes appreciated. - There are large fluid levels within the left maxillary sinus and within the right frontal sinus the can be correlated for clinical signs of acute sinusitis. - A peripherally ossified structure extending from the dorsal margin of the right nasolacrimal duct into the right maxillary sinus is stable when compared to examinations dated back to 08/24/2008 favoring a benign etiology. Cervical Spine CT 02/14/23 22:15 IMPRESSION: 1. No acute intracranial abnormality. Stable postsurgical changes with right frontotemporal encephalomalacia, global volume loss, and extraocular dilatation of the right lateral ventricle. 2. No cervical spine fracture or traumatic malalignment. Head CT 02/14/23 22:15 IMPRESSION: 1. No acute intracranial abnormality. Stable postsurgical changes with right frontotemporal encephalomalacia, global volume loss, and extraocular dilatation of the right lateral ventricle. 2. No cervical spine fracture or traumatic malalignment. Hip/Pelvis X-Ray 02/14/23 22:25 IMPRESSION: Moderate degenerative changes of the right hip with loss of superolateral joint space. Similar chronic posttraumatic deformity of the right femoral neck with chronic foreshortening. Status post left total hip arthroplasty in unchanged alignment however the lack of a crosstable lateral view limits assessment for dislocation. No acute fracture or dislocation appreciated on the available views. Medications Medications Current Medications Acetaminophen (Acetaminophen 325 Mg Tablet) 975 mg PO Q6H PRN PRN Reason: Headache/Pain Mild Scale (1-3) Last Admin: 02/17/23 04:15 Dose: 975 mg Albuterol Sulfate (Albuterol Sulfate 90 Mcg 8 Gm Inhaler) 2 puff INHALE Q6H PRN PRN Reason: Wheezing Alprazolam (Alprazolam 0.5 Mg Tablet) 0.5 mg PO BEDTIME [facility] Last Admin: 02/17/23 21:22 Dose: 0.5 mg Alprazolam (Alprazolam 0.25 Mg Tablet) 0.25 mg PO Q4H PRN PRN Reason: Anxiety Last Admin: 02/14/23 15:23 Dose: 0.25 mg Amlodipine Besylate (Amlodipine Besylate 5 Mg Tablet) 5 mg PO DAILY [facility]; Protocol Last Admin: 02/18/23 09:05 Dose: 5 mg Bisacodyl (Bisacodyl 10 Mg Supp.Rect) 10 mg [place] DAILY PRN PRN Reason: Constipation Divalproex Sodium (Divalproex Sodium Sprinkles 125 Mg Frandy.) 500 mg PO BID [facility] Last Admin: 02/18/23 09:05 Dose: 500 mg Guaifenesin/Dextromethorphan (Guaifenesin Dm 100/10/5 Ml 5 Ml Syrup) 5 ml PO Q4H PRN PRN Reason: cough Last Admin: 02/18/23 06:51 Dose: 5 ml Hydroxyzine HCl (Hydroxyzine Hcl 50 Mg Tablet) 50 mg PO Q4H PRN PRN Reason: Anxiety Last Admin: 02/18/23 01:03 Dose: 50 mg Ibuprofen (Ibuprofen 600 Mg Tablet) 600 mg PO Q6H PRN PRN Reason: Pain, Moderate (Pain Scale 4-6 Last Admin: 02/17/23 06:02 Dose: 600 mg Lamotrigine (Lamotrigine 100 Mg Tablet) 100 mg PO BID [facility] Last Admin: 02/18/23 09:06 Dose: 100 mg Latanoprost (Latanoprost 0.005 % Ophth No 2.5 Ml Drops) 1 drop EYE-BOTH BEDTIME [facility] Last Admin: 02/17/23 21:23 Dose: 1 drop Lidocaine (Lidocaine 5 % Ointment 35 Gm) 1 appl TOPICAL Q6H PRN; Protocol PRN Reason: Hemorrhoid pain Last Admin: 02/17/23 21:23 Dose: 1 appl Multi-Ingred Cream/Lotion/Oil/Oint (Mineral Oil/Petrolatum,White 106 Gm Tube) 1 appl TOPICAL BID PRN; Protocol PRN Reason: dry skin Nortriptyline HCl (Nortriptyline Hcl 25 Mg Capsule) 50 mg PO BEDTIME [facility] Last Admin: 02/17/23 21:23 Dose: 50 mg Nystatin (Nystatin Powder 15 Gm Bottle) 1 appl TOPICAL BID [facility]; Protocol Last Admin: 02/18/23 09:06 Dose: Not Given Olanzapine (Olanzapine 2.5 Mg Tablet) 2.5 mg PO DAILY [facility] Last Admin: 02/18/23 09:05 Dose: 2.5 mg Olanzapine (Olanzapine 2.5 Mg Tablet) 2.5 mg PO DAILY@1500 [facility] Last Admin: 02/17/23 14:30 Dose: 2.5 mg Olanzapine (Olanzapine 5 Mg Tablet) 5 mg PO BEDTIME [facility] Last Admin: 02/17/23 21:22 Dose: 5 mg Polyethylene Glycol (Polyethylene Glycol 3350 17 Gm Powd.Pack) 17 gm PO BID [facility] Last Admin: 02/18/23 09:10 Dose: 17 gm Senna/Docusate Sodium (Sennosides/Docusate Sodium Tablet) 2 tab PO BEDTIME [facility] Last Admin: 02/17/23 21:42 Dose: Not Given Sodium Biphosphate/Sodium Phosphate (Sodium Phosphate,[place]-Dibasic 133 Ml Enema) 133 ml [place] ONCE PRN PRN Reason: Constipation Sodium Chloride (Sodium Chloride 0.65 % Nasal 44 Ml Sprbtl) 1 spray NOSTRIL-B Q1H PRN PRN Reason: Nasal Congestion Last Admin: 02/17/23 06:04 Dose: 1 spray Tamsulosin HCl (Tamsulosin Hcl 0.4 Mg Capsule) 0.4 mg PO DAILY [facility] Last Admin: 02/18/23 09:05 Dose: 0.4 mg Trazodone HCl (Trazodone Hcl 100 Mg Tablet) 200 mg PO BEDTIME [facility] Last Admin: 02/17/23 21:22 Dose: 200 mg Venlafaxine HCl (Venlafaxine Hcl Er 75 Mg Cap.Er.24h) 75 mg PO DAILY [facility] Last Admin: 02/18/23 09:05 Dose: 75 mg Allergies Allergies Allergy/AdvReac Type Severity Reaction Status Date / Time fentanyl [FENTANYL] Allergy Intermediate unknown Verified 04/08/22 07:00 Assessment & Plan Assessment & Plan (1) Major depressive disorder, recurrent severe without psychotic features: Status: Acute Code(s): F33.2 - Major depressive disorder, recurrent severe without psychotic features (2) Cognitive and neurobehavioral dysfunction following brain injury: Status: Acute Code(s): G31.89 - Other specified degenerative diseases of nervous system; F09 - Unspecified mental disorder due to known physiological condition; S06.9X9S - Unspecified intracranial injury with loss of consciousness of unspecified duration, sequela Plan The patient is a middle-age male with a past history of major depressive disorder, alcohol use disorder, TBI admitted for suicidality. He had been in the facility sterile times in the last year. Plan 1. Continue with same treatment. 2. Waiting for placement 02/16/22 Pt has been more irritable dysphoric inc depakote ck level ck ammonia needs reassurance support which he finds helpful 02/17/22 pt has been inc depakote 500 bid has had lability periods of despair 02/18/23 pt urged to use techniques to dec reactivity depakote 500 bid Reason for contiued inpatient stay Substantial Risk for: harm to self, rapid decompensation and med/psych decompensation Time Spent With Patient Time: Total time managing care of this patient today ____ minutes.
[2023-02-18 18:00] VITALS: BP 124/78; PULSE 80; RESP 18; TEMP 36.7; O2SAT 96
[2023-02-18] MEDS: Sennosides/Docusate Sodium TABLET 2 TAB PO (20:11)
[2023-02-18] MEDS: ALPRAZolam 0.5 MG TABLET PO (20:11)
[2023-02-18] MEDS: Nortriptyline HCl 25 MG CAPSULE 50 MG PO (20:11)
[2023-02-18] MEDS: OLANZapine 5 MG TABLET PO (20:12)
[2023-02-18] MEDS: traZODone HCL 100 MG TABLET 200 MG PO (20:12)
[2023-02-18] MEDS: Nystatin Powder 15 GM BOTTLE 1 APPL TOPICAL (20:14)
[2023-02-18] MEDS: Latanoprost 0.005 % Ophth Sol 2.5 ML DROPS 1 DROP EYE-BOTH (20:14)
[2023-02-18] MEDS: Acetaminophen 325 MG TABLET 975 MG PO (20:18)
[2023-02-18] MEDS: Sodium Chloride 0.65 % Nasal 44 ML SPRBTL 1 SPRAY NOSTRIL-B (22:20)
[2023-02-19] MEDS: guaiFENesin DM 100/10/5 ML 5 ML SYRUP PO (05:16)
[2023-02-19 06:00] VITALS: BP 141/83; PULSE 74; RESP 16; TEMP 36.2; O2SAT 95
[2023-02-19] MEDS: amLODIPine Besylate 5 MG TABLET PO (08:53)
[2023-02-19] MEDS: lamoTRIgine 100 MG TABLET PO ×2 (08:54→21:26)
[2023-02-19] MEDS: Divalproex Sodium Sprinkles 125 MG CAP.DR.SPR 500 MG PO ×2 (08:54→21:27)
[2023-02-19] MEDS: OLANZapine 2.5 MG TABLET PO ×2 (08:54→14:43)
[2023-02-19] MEDS: Venlafaxine HCl ER 75 MG CAP.ER.24H PO (08:54)
[2023-02-19] MEDS: Tamsulosin HCL 0.4 MG CAPSULE PO (08:54)
[2023-02-19] MEDS: polyethylene glycoL 3350 17 GM POWD.PACK PO (08:55)
--- NOTE | 2023-02-19 15:15 | HO.PSYCHPN ---
Subjective Subjective Date of Service: 02/19/23 Reason For Visit: Depression hopelessness irritability Subjective Notes: Conditional Voluntary Healthcare Proxy: No Guardianship: No Interim History: Patient feeling somewhat more stable less labile has met [facility] Medication Compliance: Yes Review of Systems Medical Review of Systems: unchanged Mental Status Exam Mental Status Exam Narrative: Patient Appearance: Well Grooomed and Appropriate Patient Orientation: Person and Situation Level of Consciousness: Awake and Appropriate Patient Behavior: Talkative Behavior Comments: Mood Description: Calm and Apprehensive Affect Description: Appropriate and Constricted Patient Cognition Impaired: No Ability to Follow Directions: Good Speech Pattern: Clear Memory Description: Working Impaired Delusions: Not Present Thought Process: Rumination Thought Content: positive for Circumstantial and positive for Perseveration Depressive Symptoms: Increased Anxiety, Increased Irritability, Crying Spells, Feelings of Worthlessness and Thoughts of /Suicide Judgement: Fair Judgement and Insight: Intermittent hopelessness less labile today better able to think things through Diagnostics Vital Signs (24Hr): Vital Signs - 24 hr 02/18/23 18:00 02/19/23 06:00 Temperature 98.1 F 97.1 F Pulse Rate 80 74 Respiratory Rate 18 16 Blood Pressure 124/78 141/83 H Pulse Oximetry 96 95 Oxygen Delivery Method Room Air Room Air BMI result Body Mass Index 30.8 Labs 02/12/23 05:27 02/12/23 05:27 Imaging Radiology Impressions: ITS Impressions Chest X-Ray 10/20/22 15:45 IMPRESSION: 1. Low lung volumes with bibasilar linear disc atelectasis versus scarring. 2. No airspace consolidation or effusion. Head CT 11/08/22 12:29 IMPRESSION: No acute intracranial hemorrhage or territorial infarction. Stable chronic postoperative changes with gliosis and encephalomalacia in the right frontal and right temporal lobes. Ex vacuo dilatation of the ventricles and diffuse parenchymal volume loss. Right-sided craniotomy changes. Chest X-Ray 11/12/22 10:32 IMPRESSION: Hypoexpanded lungs with bibasilar platelike atelectasis. Brain MRI 11/12/22 13:15 IMPRESSION: 1. No demonstrated acute intracranial abnormalities. 2. Chronic encephalomalacia of the right temporal, right frontal, and left occipital lobes. Small regions of chronic encephalomalacia in the parasagittal aspects of the bilateral parietal lobes. Moderate underlying microangiopathy and generalized cerebral volume loss. Chest X-Ray 11/14/22 15:52 IMPRESSION: Low lung volumes, bibasilar subsegmental atelectasis and slight elevation of the right hemidiaphragm similar to previous exam. Modified Barium Swallow 11/21/22 15:11 IMPRESSION: Laryngeal penetration on several occasions but no laryngeal aspiration. Mild retention of solid food in the valleculae which cleared with subsequent oral administration of water or thin barium. Correlate with speech therapy results. Orbit CT 01/23/23 14:05 IMPRESSION: - No definite significant intraorbital soft tissue findings to assessment is limited on a noncontrast CT of the orbits. No retrobulbar mass lesions and no cellulitic changes appreciated. - There are large fluid levels within the left maxillary sinus and within the right frontal sinus the can be correlated for clinical signs of acute sinusitis. - A peripherally ossified structure extending from the dorsal margin of the right nasolacrimal duct into the right maxillary sinus is stable when compared to examinations dated back to 08/24/2008 favoring a benign etiology. Cervical Spine CT 02/14/23 22:15 IMPRESSION: 1. No acute intracranial abnormality. Stable postsurgical changes with right frontotemporal encephalomalacia, global volume loss, and extraocular dilatation of the right lateral ventricle. 2. No cervical spine fracture or traumatic malalignment. Head CT 02/14/23 22:15 IMPRESSION: 1. No acute intracranial abnormality. Stable postsurgical changes with right frontotemporal encephalomalacia, global volume loss, and extraocular dilatation of the right lateral ventricle. 2. No cervical spine fracture or traumatic malalignment. Hip/Pelvis X-Ray 02/14/23 22:25 IMPRESSION: Moderate degenerative changes of the right hip with loss of superolateral joint space. Similar chronic posttraumatic deformity of the right femoral neck with chronic foreshortening. Status post left total hip arthroplasty in unchanged alignment however the lack of a crosstable lateral view limits assessment for dislocation. No acute fracture or dislocation appreciated on the available views. Medications Medications Current Medications Acetaminophen (Acetaminophen 325 Mg Tablet) 975 mg PO Q6H PRN PRN Reason: Headache/Pain Mild Scale (1-3) Last Admin: 02/18/23 20:18 Dose: 975 mg Albuterol Sulfate (Albuterol Sulfate 90 Mcg 8 Gm Inhaler) 2 puff INHALE Q6H PRN PRN Reason: Wheezing Alprazolam (Alprazolam 0.5 Mg Tablet) 0.5 mg PO BEDTIME [facility] Last Admin: 02/18/23 20:11 Dose: 0.5 mg Alprazolam (Alprazolam 0.25 Mg Tablet) 0.25 mg PO Q4H PRN PRN Reason: Anxiety Last Admin: 02/14/23 15:23 Dose: 0.25 mg Amlodipine Besylate (Amlodipine Besylate 5 Mg Tablet) 5 mg PO DAILY [facility]; Protocol Last Admin: 02/19/23 08:53 Dose: 5 mg Bisacodyl (Bisacodyl 10 Mg Supp.Rect) 10 mg NC DAILY PRN PRN Reason: Constipation Divalproex Sodium (Divalproex Sodium Sprinkles 125 Mg Frandy.) 500 mg PO BID [facility] Last Admin: 02/19/23 08:54 Dose: 500 mg Guaifenesin/Dextromethorphan (Guaifenesin Dm 100/10/5 Ml 5 Ml Syrup) 5 ml PO Q4H PRN PRN Reason: cough Last Admin: 02/19/23 05:16 Dose: 5 ml Hydroxyzine HCl (Hydroxyzine Hcl 50 Mg Tablet) 50 mg PO Q4H PRN PRN Reason: Anxiety Last Admin: 02/18/23 22:12 Dose: 50 mg Ibuprofen (Ibuprofen 600 Mg Tablet) 600 mg PO Q6H PRN PRN Reason: Pain, Moderate (Pain Scale 4-6 Last Admin: 02/17/23 06:02 Dose: 600 mg Lamotrigine (Lamotrigine 100 Mg Tablet) 100 mg PO BID [facility] Last Admin: 02/19/23 08:54 Dose: 100 mg Latanoprost (Latanoprost 0.005 % Ophth No 2.5 Ml Drops) 1 drop EYE-BOTH BEDTIME [facility] Last Admin: 02/18/23 20:14 Dose: 1 drop Lidocaine (Lidocaine 5 % Ointment 35 Gm) 1 appl TOPICAL Q6H PRN; Protocol PRN Reason: Hemorrhoid pain Last Admin: 02/17/23 21:23 Dose: 1 appl Multi-Ingred Cream/Lotion/Oil/Oint (Mineral Oil/Petrolatum,White 106 Gm Tube) 1 appl TOPICAL BID PRN; Protocol PRN Reason: dry skin Nortriptyline HCl (Nortriptyline Hcl 25 Mg Capsule) 50 mg PO BEDTIME [facility] Last Admin: 02/18/23 20:11 Dose: 50 mg Nystatin (Nystatin Powder 15 Gm Bottle) 1 appl TOPICAL BID [facility]; Protocol Last Admin: 02/19/23 08:55 Dose: Not Given Olanzapine (Olanzapine 2.5 Mg Tablet) 2.5 mg PO DAILY [facility] Last Admin: 02/19/23 08:54 Dose: 2.5 mg Olanzapine (Olanzapine 2.5 Mg Tablet) 2.5 mg PO DAILY@1500 [facility] Last Admin: 02/19/23 14:43 Dose: 2.5 mg Olanzapine (Olanzapine 5 Mg Tablet) 5 mg PO BEDTIME [facility] Last Admin: 02/18/23 20:12 Dose: 5 mg Polyethylene Glycol (Polyethylene Glycol 3350 17 Gm Powd.Pack) 17 gm PO BID [facility] Last Admin: 02/19/23 08:55 Dose: 17 gm Senna/Docusate Sodium (Sennosides/Docusate Sodium Tablet) 2 tab PO BEDTIME [facility] Last Admin: 02/18/23 20:11 Dose: 1 tab Sodium Biphosphate/Sodium Phosphate (Sodium Phosphate,Simpson-Dibasic 133 Ml Enema) 133 ml NC ONCE PRN PRN Reason: Constipation Sodium Chloride (Sodium Chloride 0.65 % Nasal 44 Ml Sprbtl) 1 spray NOSTRIL-B Q1H PRN PRN Reason: Nasal Congestion Last Admin: 02/18/23 22:20 Dose: 1 spray Tamsulosin HCl (Tamsulosin Hcl 0.4 Mg Capsule) 0.4 mg PO DAILY [facility] Last Admin: 02/19/23 08:54 Dose: 0.4 mg Trazodone HCl (Trazodone Hcl 100 Mg Tablet) 200 mg PO BEDTIME [facility] Last Admin: 02/18/23 20:12 Dose: 200 mg Venlafaxine HCl (Venlafaxine Hcl Er 75 Mg Cap.Er.24h) 75 mg PO DAILY [facility] Last Admin: 02/19/23 08:54 Dose: 75 mg Allergies Allergies Allergy/AdvReac Type Severity Reaction Status Date / Time fentanyl [FENTANYL] Allergy Intermediate unknown Verified 04/08/22 07:00 Assessment & Plan Assessment & Plan (1) Major depressive disorder, recurrent severe without psychotic features: Status: Acute Code(s): F33.2 - Major depressive disorder, recurrent severe without psychotic features (2) Cognitive and neurobehavioral dysfunction following brain injury: Status: Acute Code(s): G31.89 - Other specified degenerative diseases of nervous system; F09 - Unspecified mental disorder due to known physiological condition; S06.9X9S - Unspecified intracranial injury with loss of consciousness of unspecified duration, sequela Plan The patient is a middle-age male with a past history of major depressive disorder, alcohol use disorder, TBI admitted for suicidality. He had been in the facility sterile times in the last year. Plan 1. Continue with same treatment. 2. Waiting for placement 02/16/22 Pt has been more irritable dysphoric inc depakote ck level ck ammonia needs reassurance support which he finds helpful 02/17/22 pt has been inc depakote 500 bid has had lability periods of despair 02/18/23 pt urged to use techniques to dec reactivity depakote 500 bid 02/19/2023 Continue Depakote check level in a few days Patient educated on: medication risk/benefits and therapeutic strategies Informed Consent: understands Reason for contiued inpatient stay Substantial Risk for: harm to self, inability to function and rapid decompensation Time Spent With Patient Time: Total time managing care of this patient today 25____ minutes.
[2023-02-19] MEDS: ALPRAZolam 0.25 MG TABLET PO (15:43)
[2023-02-19] MEDS: Ibuprofen 600 MG TABLET PO (15:43)
[2023-02-19 20:15] VITALS: BP 145/76; PULSE 75; RESP 18; TEMP 36.4; O2SAT 98
[2023-02-19] MEDS: Nortriptyline HCl 25 MG CAPSULE 50 MG PO (21:24)
[2023-02-19] MEDS: Latanoprost 0.005 % Ophth Sol 2.5 ML DROPS 1 DROP EYE-BOTH (21:24)
[2023-02-19] MEDS: Sennosides/Docusate Sodium TABLET 2 TAB PO (21:25)
[2023-02-19] MEDS: traZODone HCL 100 MG TABLET 200 MG PO (21:25)
[2023-02-19] MEDS: ALPRAZolam 0.5 MG TABLET PO (21:27)
[2023-02-19] MEDS: OLANZapine 5 MG TABLET PO (21:28)
[2023-02-20] MEDS: amLODIPine Besylate 5 MG TABLET PO (08:51)
[2023-02-20] MEDS: Venlafaxine HCl ER 75 MG CAP.ER.24H PO (08:51)
[2023-02-20] MEDS: lamoTRIgine 100 MG TABLET PO ×2 (08:51→21:12)
[2023-02-20] MEDS: polyethylene glycoL 3350 17 GM POWD.PACK PO (08:51)
[2023-02-20] MEDS: Tamsulosin HCL 0.4 MG CAPSULE PO (08:51)
[2023-02-20] MEDS: OLANZapine 2.5 MG TABLET PO ×2 (08:51→15:45)
[2023-02-20] MEDS: Divalproex Sodium Sprinkles 125 MG CAP.DR.SPR 500 MG PO ×2 (08:51→21:06)
[2023-02-20] MEDS: Ibuprofen 600 MG TABLET PO (08:58)
[2023-02-20 09:00] VITALS: BP 152/91; PULSE 80; RESP 18; TEMP 36.5; O2SAT 97
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
[2023-02-20] MEDS: ALPRAZolam 0.25 MG TABLET PO (15:45)
--- NOTE | 2023-02-20 16:43 | P.PNPSI_ITS ---
Subjective Subjective Date of Service: 02/20/23 Reason For Visit: Depression hopelessness irritability Subjective Notes: Conditional Voluntary Interim History: The patient is more triggered again labile easily agitated and dysphoric Medication Compliance: Yes Attending Groups: Yes Mental Status Exam Mental Status Exam Narrative: Patient Appearance: Well Grooomed and Appropriate Patient Orientation: Person and Situation Level of Consciousness: Awake Patient Behavior: Talkative, Restless, Anxious, Distractible and Impulsive Behavior Comments: Mood Description: Calm, Fearful, Angry and Apprehensive Affect Description: Constricted, Labile and Angry Patient Cognition Impaired: No Ability to Follow Directions: Good Speech Pattern: Clear Memory Description: Working Impaired Delusions: Not Present Thought Process: Rumination Thought Content: positive for Circumstantial and positive for Perseveration Depressive Symptoms: Increased Anxiety, Increased Irritability, Crying Spells, Feelings of Worthlessness and Thoughts of /Suicide Judgement: Fair Judgement and Insight: Intermittent hopelessness less labile today better able to think things through Diagnostics Vital Signs (24Hr): Vital Signs - 24 hr 02/19/23 20:15 02/20/23 09:00 Temperature 97.5 F 97.7 F Pulse Rate 75 80 Respiratory Rate 18 18 Blood Pressure 145/76 H 152/91 H Pulse Oximetry 98 97 Oxygen Delivery Method Room Air Room Air BMI result Body Mass Index 30.8 Labs 02/12/23 05:27 02/12/23 05:27 Imaging Radiology Impressions: ITS Impressions Chest X-Ray 10/20/22 15:45 IMPRESSION: 1. Low lung volumes with bibasilar linear disc atelectasis versus scarring. 2. No airspace consolidation or effusion. Head CT 11/08/22 12:29 IMPRESSION: No acute intracranial hemorrhage or territorial infarction. Stable chronic postoperative changes with gliosis and encephalomalacia in the right frontal and right temporal lobes. Ex vacuo dilatation of the ventricles and diffuse parenchymal volume loss. Right-sided craniotomy changes. Chest X-Ray 11/12/22 10:32 IMPRESSION: Hypoexpanded lungs with bibasilar platelike atelectasis. Brain MRI 11/12/22 13:15 IMPRESSION: 1. No demonstrated acute intracranial abnormalities. 2. Chronic encephalomalacia of the right temporal, right frontal, and left occipital lobes. Small regions of chronic encephalomalacia in the parasagittal aspects of the bilateral parietal lobes. Moderate underlying microangiopathy and generalized cerebral volume loss. Chest X-Ray 11/14/22 15:52 IMPRESSION: Low lung volumes, bibasilar subsegmental atelectasis and slight elevation of the right hemidiaphragm similar to previous exam. Modified Barium Swallow 11/21/22 15:11 IMPRESSION: Laryngeal penetration on several occasions but no laryngeal aspiration. Mild retention of solid food in the valleculae which cleared with subsequent oral administration of water or thin barium. Correlate with speech therapy results. Orbit CT 01/23/23 14:05 IMPRESSION: - No definite significant intraorbital soft tissue findings to assessment is limited on a noncontrast CT of the orbits. No retrobulbar mass lesions and no cellulitic changes appreciated. - There are large fluid levels within the left maxillary sinus and within the right frontal sinus the can be correlated for clinical signs of acute sinusitis. - A peripherally ossified structure extending from the dorsal margin of the right nasolacrimal duct into the right maxillary sinus is stable when compared to examinations dated back to 08/24/2008 favoring a benign etiology. Cervical Spine CT 02/14/23 22:15 IMPRESSION: 1. No acute intracranial abnormality. Stable postsurgical changes with right frontotemporal encephalomalacia, global volume loss, and extraocular dilatation of the right lateral ventricle. 2. No cervical spine fracture or traumatic malalignment. Head CT 02/14/23 22:15 IMPRESSION: 1. No acute intracranial abnormality. Stable postsurgical changes with right frontotemporal encephalomalacia, global volume loss, and extraocular dilatation of the right lateral ventricle. 2. No cervical spine fracture or traumatic malalignment. Hip/Pelvis X-Ray 02/14/23 22:25 IMPRESSION: Moderate degenerative changes of the right hip with loss of superolateral joint space. Similar chronic posttraumatic deformity of the right femoral neck with chronic foreshortening. Status post left total hip arthroplasty in unchanged alignment however the lack of a crosstable lateral view limits assessment for dislocation. No acute fracture or dislocation appreciated on the available views. Medications Medications Current Medications Acetaminophen (Acetaminophen 325 Mg Tablet) 975 mg PO Q6H PRN PRN Reason: Headache/Pain Mild Scale (1-3) Last Admin: 02/18/23 20:18 Dose: 975 mg Albuterol Sulfate (Albuterol Sulfate 90 Mcg 8 Gm Inhaler) 2 puff INHALE Q6H PRN PRN Reason: Wheezing Alprazolam (Alprazolam 0.5 Mg Tablet) 0.5 mg PO BEDTIME [facility] Last Admin: 02/19/23 21:27 Dose: 0.5 mg Alprazolam (Alprazolam 0.25 Mg Tablet) 0.25 mg PO Q4H PRN PRN Reason: Anxiety Last Admin: 02/20/23 15:45 Dose: 0.25 mg Amlodipine Besylate (Amlodipine Besylate 5 Mg Tablet) 5 mg PO DAILY [facility]; Protocol Last Admin: 02/20/23 08:51 Dose: 5 mg Bisacodyl (Bisacodyl 10 Mg Supp.Rect) 10 mg UT DAILY PRN PRN Reason: Constipation Divalproex Sodium (Divalproex Sodium Sprinkles 125 Mg Frandy.) 500 mg PO BID [facility] Last Admin: 02/20/23 08:51 Dose: 500 mg Guaifenesin/Dextromethorphan (Guaifenesin Dm 100/10/5 Ml 5 Ml Syrup) 5 ml PO Q4H PRN PRN Reason: cough Last Admin: 02/19/23 05:16 Dose: 5 ml Hydroxyzine HCl (Hydroxyzine Hcl 50 Mg Tablet) 50 mg PO Q4H PRN PRN Reason: Anxiety Last Admin: 02/18/23 22:12 Dose: 50 mg Ibuprofen (Ibuprofen 600 Mg Tablet) 600 mg PO Q6H PRN PRN Reason: Pain, Moderate (Pain Scale 4-6 Last Admin: 02/20/23 08:58 Dose: 600 mg Lamotrigine (Lamotrigine 100 Mg Tablet) 100 mg PO BID [facility] Last Admin: 02/20/23 08:51 Dose: 100 mg Latanoprost (Latanoprost 0.005 % Ophth No 2.5 Ml Drops) 1 drop EYE-BOTH BEDTIME [facility] Last Admin: 02/19/23 21:24 Dose: 1 drop Lidocaine (Lidocaine 5 % Ointment 35 Gm) 1 appl TOPICAL Q6H PRN; Protocol PRN Reason: Hemorrhoid pain Last Admin: 02/17/23 21:23 Dose: 1 appl Multi-Ingred Cream/Lotion/Oil/Oint (Mineral Oil/Petrolatum,White 106 Gm Tube) 1 appl TOPICAL BID PRN; Protocol PRN Reason: dry skin Nortriptyline HCl (Nortriptyline Hcl 25 Mg Capsule) 50 mg PO BEDTIME [facility] Last Admin: 02/19/23 21:24 Dose: 50 mg Nystatin (Nystatin Powder 15 Gm Bottle) 1 appl TOPICAL BID [facility]; Protocol Last Admin: 02/20/23 09:01 Dose: Not Given Olanzapine (Olanzapine 2.5 Mg Tablet) 2.5 mg PO DAILY [facility] Last Admin: 02/20/23 08:51 Dose: 2.5 mg Olanzapine (Olanzapine 2.5 Mg Tablet) 2.5 mg PO Q4H PRN PRN Reason: anxiety/restlessness Olanzapine (Olanzapine 2.5 Mg Tablet) 2.5 mg PO DAILY@1500 [facility] Last Admin: 02/20/23 15:45 Dose: 2.5 mg Olanzapine (Olanzapine 5 Mg Tablet) 5 mg PO BEDTIME [facility] Last Admin: 02/19/23 21:28 Dose: 5 mg Polyethylene Glycol (Polyethylene Glycol 3350 17 Gm Powd.Pack) 17 gm PO BID [facility] Last Admin: 02/20/23 08:51 Dose: 17 gm Senna/Docusate Sodium (Sennosides/Docusate Sodium Tablet) 2 tab PO BEDTIME [facility] Last Admin: 02/19/23 21:25 Dose: 2 tab Sodium Biphosphate/Sodium Phosphate (Sodium Phosphate,[place]-Dibasic 133 Ml Enema) 133 ml UT ONCE PRN PRN Reason: Constipation Sodium Chloride (Sodium Chloride 0.65 % Nasal 44 Ml Sprbtl) 1 spray NOSTRIL-B Q1H PRN PRN Reason: Nasal Congestion Last Admin: 02/18/23 22:20 Dose: 1 spray Tamsulosin HCl (Tamsulosin Hcl 0.4 Mg Capsule) 0.4 mg PO DAILY [facility] Last Admin: 02/20/23 08:51 Dose: 0.4 mg Trazodone HCl (Trazodone Hcl 100 Mg Tablet) 200 mg PO BEDTIME [facility] Last Admin: 02/19/23 21:25 Dose: 200 mg Venlafaxine HCl (Venlafaxine Hcl Er 75 Mg Cap.Er.24h) 75 mg PO DAILY [facility] Last Admin: 02/20/23 08:51 Dose: 75 mg Allergies Allergies Allergy/AdvReac Type Severity Reaction Status Date / Time fentanyl [FENTANYL] Allergy Intermediate unknown Verified 04/08/22 07:00 Assessment & Plan Assessment & Plan (1) Major depressive disorder, recurrent severe without psychotic features: Status: Acute Code(s): F33.2 - Major depressive disorder, recurrent severe without psychotic features (2) Cognitive and neurobehavioral dysfunction following brain injury: Status: Acute Code(s): G31.89 - Other specified degenerative diseases of nervous system; F09 - Unspecified mental disorder due to known physiological condition; S06.9X9S - Unspecified intracranial injury with loss of consciousness of unspecified duration, sequela Plan The patient is a middle-age male with a past history of major depressive disorder, alcohol use disorder, TBI admitted for suicidality. He had been in the facility sterile times in the last year. Plan 1. Continue with same treatment. 2. Waiting for placement 02/16/22 Pt has been more irritable dysphoric inc depakote ck level ck ammonia needs reassurance support which he finds helpful 02/17/22 pt has been inc depakote 500 bid has had lability periods of despair 02/18/23 pt urged to use techniques to dec reactivity depakote 500 bid 02/19/2023 Continue Depakote check level in a few days 02/20/2023 Patient required alprazolam olanzapine check Depakote level Patient educated on: diagnosis and medication risk/benefits Informed Consent: understands Reason for contiued inpatient stay Substantial Risk for: harm to self, inability to function and rapid decompensation Time Spent With Patient Time: Total time managing care of this patient today ____ minutes.
[2023-02-20] MEDS: hydrOXYzine HCL 50 MG TABLET PO (18:38)
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
[2023-02-20] MEDS: ALPRAZolam 0.5 MG TABLET PO (21:06)
[2023-02-20] MEDS: Latanoprost 0.005 % Ophth Sol 2.5 ML DROPS 1 DROP EYE-BOTH (21:06)
[2023-02-20] MEDS: OLANZapine 5 MG TABLET PO (21:07)
[2023-02-20] MEDS: traZODone HCL 100 MG TABLET 200 MG PO (21:08)
[2023-02-20] MEDS: Sennosides/Docusate Sodium TABLET 2 TAB PO (21:08)
[2023-02-20] MEDS: Nystatin Powder 15 GM BOTTLE 1 APPL TOPICAL (21:19)
[2023-02-20] MEDS: Nortriptyline HCl 25 MG CAPSULE 50 MG PO (21:40)
[2023-02-21 07:30] VITALS: BP 152/75; PULSE 75; RESP 16; TEMP 36; O2SAT 96
[2023-02-21] MEDS: OLANZapine 2.5 MG TABLET PO ×2 (08:58→14:54)
[2023-02-21] MEDS: amLODIPine Besylate 5 MG TABLET PO (08:58)
[2023-02-21] MEDS: Venlafaxine HCl ER 75 MG CAP.ER.24H PO (08:58)
[2023-02-21] MEDS: Tamsulosin HCL 0.4 MG CAPSULE PO (08:58)
[2023-02-21] MEDS: lamoTRIgine 100 MG TABLET PO ×2 (08:58→21:06)
[2023-02-21] MEDS: Divalproex Sodium Sprinkles 125 MG CAP.DR.SPR 500 MG PO ×2 (08:58→21:04)
[2023-02-21] MEDS: polyethylene glycoL 3350 17 GM POWD.PACK PO (08:59)
[2023-02-21 19:35] VITALS: BP 152/74; PULSE 80; RESP 18; TEMP 35.9; O2SAT 96
[2023-02-21] MEDS: OLANZapine 5 MG TABLET PO (21:04)
[2023-02-21] MEDS: Nystatin Powder 15 GM BOTTLE 1 APPL TOPICAL (21:04)
[2023-02-21] MEDS: Latanoprost 0.005 % Ophth Sol 2.5 ML DROPS 1 DROP EYE-BOTH (21:04)
[2023-02-21] MEDS: ALPRAZolam 0.5 MG TABLET PO (21:05)
[2023-02-21] MEDS: Sennosides/Docusate Sodium TABLET 2 TAB PO (21:05)
[2023-02-21] MEDS: traZODone HCL 100 MG TABLET 200 MG PO (21:07)
[2023-02-21] MEDS: Nortriptyline HCl 25 MG CAPSULE 50 MG PO (21:08)
--- NOTE | 2023-02-21 21:36 | P.PNPSI_ITS ---
Subjective Subjective Date of Service: 02/21/23 Reason For Visit: Depression hopelessness irritability Medical Problems Affecting Mental Status: No Interim History: Met with pt. D/W nursing. Awaiting placement- bed will be reportedly available 04/16/23. Otherwise at cantankerous baseline. Talked about happier and healthier times and holding his tongue . Medication Compliance: Yes Side effects from medications: No Attending Groups: Intermittent Review of Systems Acute medical concerns: No Review of Systems Review of Systems unremarkable Mental Status Exam Mental Status Exam Narrative: Patient Appearance: Well Grooomed and Appropriate Patient Orientation: Person, Place and Situation Level of Consciousness: Awake Patient Behavior: Talkative, Anxious, Distractible and Impulsive Behavior Comments: Mood Description: Calm, Angry and Apprehensive Affect Description: Constricted, Labile and Angry Patient Cognition Impaired: No Ability to Follow Directions: Good Speech Pattern: Clear Memory Description: Working Impaired Delusions: Not Present Thought Process: Rumination Thought Content: positive for Circumstantial and positive for Perseveration Depressive Symptoms: Increased Anxiety, Increased Irritability, Crying Spells, Feelings of Worthlessness and Thoughts of /Suicide Judgement: Fair Judgement and Insight: Intermittent hopelessness less labile today better able to think things through Diagnostics Vital Signs (24Hr): Vital Signs - 24 hr 02/21/23 07:30 02/21/23 19:35 Temperature 96.8 F 96.6 F L Pulse Rate 75 80 Respiratory Rate 16 18 Blood Pressure 152/75 H 152/74 H Pulse Oximetry 96 96 Oxygen Delivery Method Room Air Room Air BMI result Body Mass Index 30.8 Labs 02/12/23 05:27 02/12/23 05:27 Imaging Radiology Impressions: ITS Impressions Chest X-Ray 10/20/22 15:45 IMPRESSION: 1. Low lung volumes with bibasilar linear disc atelectasis versus scarring. 2. No airspace consolidation or effusion. Head CT 11/08/22 12:29 IMPRESSION: No acute intracranial hemorrhage or territorial infarction. Stable chronic postoperative changes with gliosis and encephalomalacia in the right frontal and right temporal lobes. Ex vacuo dilatation of the ventricles and diffuse parenchymal volume loss. Right-sided craniotomy changes. Chest X-Ray 11/12/22 10:32 IMPRESSION: Hypoexpanded lungs with bibasilar platelike atelectasis. Brain MRI 11/12/22 13:15 IMPRESSION: 1. No demonstrated acute intracranial abnormalities. 2. Chronic encephalomalacia of the right temporal, right frontal, and left occipital lobes. Small regions of chronic encephalomalacia in the parasagittal aspects of the bilateral parietal lobes. Moderate underlying microangiopathy and generalized cerebral volume loss. Chest X-Ray 11/14/22 15:52 IMPRESSION: Low lung volumes, bibasilar subsegmental atelectasis and slight elevation of the right hemidiaphragm similar to previous exam. Modified Barium Swallow 11/21/22 15:11 IMPRESSION: Laryngeal penetration on several occasions but no laryngeal aspiration. Mild retention of solid food in the valleculae which cleared with subsequent oral administration of water or thin barium. Correlate with speech therapy results. Orbit CT 01/23/23 14:05 IMPRESSION: - No definite significant intraorbital soft tissue findings to assessment is limited on a noncontrast CT of the orbits. No retrobulbar mass lesions and no cellulitic changes appreciated. - There are large fluid levels within the left maxillary sinus and within the right frontal sinus the can be correlated for clinical signs of acute sinusitis. - A peripherally ossified structure extending from the dorsal margin of the right nasolacrimal duct into the right maxillary sinus is stable when compared to examinations dated back to 08/24/2008 favoring a benign etiology. Cervical Spine CT 02/14/23 22:15 IMPRESSION: 1. No acute intracranial abnormality. Stable postsurgical changes with right frontotemporal encephalomalacia, global volume loss, and extraocular dilatation of the right lateral ventricle. 2. No cervical spine fracture or traumatic malalignment. Head CT 02/14/23 22:15 IMPRESSION: 1. No acute intracranial abnormality. Stable postsurgical changes with right frontotemporal encephalomalacia, global volume loss, and extraocular dilatation of the right lateral ventricle. 2. No cervical spine fracture or traumatic malalignment. Hip/Pelvis X-Ray 02/14/23 22:25 IMPRESSION: Moderate degenerative changes of the right hip with loss of superolateral joint space. Similar chronic posttraumatic deformity of the right femoral neck with chronic foreshortening. Status post left total hip arthroplasty in unchanged alignment however the lack of a crosstable lateral view limits assessment for dislocation. No acute fracture or dislocation appreciated on the available views. Medications Medications Current Medications Acetaminophen (Acetaminophen 325 Mg Tablet) 975 mg PO Q6H PRN PRN Reason: Headache/Pain Mild Scale (1-3) Last Admin: 02/18/23 20:18 Dose: 975 mg Albuterol Sulfate (Albuterol Sulfate 90 Mcg 8 Gm Inhaler) 2 puff INHALE Q6H PRN PRN Reason: Wheezing Alprazolam (Alprazolam 0.5 Mg Tablet) 0.5 mg PO BEDTIME [facility] Last Admin: 02/21/23 21:05 Dose: 0.5 mg Alprazolam (Alprazolam 0.25 Mg Tablet) 0.25 mg PO Q4H PRN PRN Reason: Anxiety Last Admin: 02/20/23 15:45 Dose: 0.25 mg Amlodipine Besylate (Amlodipine Besylate 5 Mg Tablet) 5 mg PO DAILY [facility]; Protocol Last Admin: 02/21/23 08:58 Dose: 5 mg Bisacodyl (Bisacodyl 10 Mg Supp.Rect) 10 mg ID DAILY PRN PRN Reason: Constipation Divalproex Sodium (Divalproex Sodium Sprinkles 125 Mg ) 500 mg PO BID [facility] Last Admin: 02/21/23 21:04 Dose: 500 mg Guaifenesin/Dextromethorphan (Guaifenesin Dm 100/10/5 Ml 5 Ml Syrup) 5 ml PO Q4H PRN PRN Reason: cough Last Admin: 02/19/23 05:16 Dose: 5 ml Hydroxyzine HCl (Hydroxyzine Hcl 50 Mg Tablet) 50 mg PO Q4H PRN PRN Reason: Anxiety Last Admin: 02/20/23 18:38 Dose: 50 mg Ibuprofen (Ibuprofen 600 Mg Tablet) 600 mg PO Q6H PRN PRN Reason: Pain, Moderate (Pain Scale 4-6 Last Admin: 02/20/23 08:58 Dose: 600 mg Lamotrigine (Lamotrigine 100 Mg Tablet) 100 mg PO BID [facility] Last Admin: 02/21/23 21:06 Dose: 100 mg Latanoprost (Latanoprost 0.005 % Ophth No 2.5 Ml Drops) 1 drop EYE-BOTH BEDTIME [facility] Last Admin: 02/21/23 21:04 Dose: 1 drop Lidocaine (Lidocaine 5 % Ointment 35 Gm) 1 appl TOPICAL Q6H PRN; Protocol PRN Reason: Hemorrhoid pain Last Admin: 02/17/23 21:23 Dose: 1 appl Multi-Ingred Cream/Lotion/Oil/Oint (Mineral Oil/Petrolatum,White 106 Gm Tube) 1 appl TOPICAL BID PRN; Protocol PRN Reason: dry skin Nortriptyline HCl (Nortriptyline Hcl 25 Mg Capsule) 50 mg PO BEDTIME [facility] Last Admin: 02/21/23 21:08 Dose: 50 mg Nystatin (Nystatin Powder 15 Gm Bottle) 1 appl TOPICAL BID [facility]; Protocol Last Admin: 02/21/23 21:04 Dose: 1 appl Olanzapine (Olanzapine 2.5 Mg Tablet) 2.5 mg PO DAILY [facility] Last Admin: 02/21/23 08:58 Dose: 2.5 mg Olanzapine (Olanzapine 2.5 Mg Tablet) 2.5 mg PO Q4H PRN PRN Reason: anxiety/restlessness Olanzapine (Olanzapine 2.5 Mg Tablet) 2.5 mg PO DAILY@1500 [facility] Last Admin: 02/21/23 14:54 Dose: 2.5 mg Olanzapine (Olanzapine 5 Mg Tablet) 5 mg PO BEDTIME [facility] Last Admin: 02/21/23 21:04 Dose: 5 mg Polyethylene Glycol (Polyethylene Glycol 3350 17 Gm Powd.Pack) 17 gm PO BID [facility] Last Admin: 02/21/23 21:05 Dose: Not Given Senna/Docusate Sodium (Sennosides/Docusate Sodium Tablet) 2 tab PO BEDTIME [facility] Last Admin: 02/21/23 21:05 Dose: 2 tab Sodium Biphosphate/Sodium Phosphate (Sodium Phosphate,[place]-Dibasic 133 Ml Enema) 133 ml ID ONCE PRN PRN Reason: Constipation Sodium Chloride (Sodium Chloride 0.65 % Nasal 44 Ml Sprbtl) 1 spray NOSTRIL-B Q1H PRN PRN Reason: Nasal Congestion Last Admin: 02/18/23 22:20 Dose: 1 spray Tamsulosin HCl (Tamsulosin Hcl 0.4 Mg Capsule) 0.4 mg PO DAILY [facility] Last Admin: 02/21/23 08:58 Dose: 0.4 mg Trazodone HCl (Trazodone Hcl 100 Mg Tablet) 200 mg PO BEDTIME [facility] Last Admin: 02/21/23 21:07 Dose: 200 mg Venlafaxine HCl (Venlafaxine Hcl Er 75 Mg Cap.Er.24h) 75 mg PO DAILY [facility] Last Admin: 02/21/23 08:58 Dose: 75 mg Allergies Allergies Allergy/AdvReac Type Severity Reaction Status Date / Time fentanyl [FENTANYL] Allergy Intermediate unknown Verified 04/08/22 07:00 Assessment & Plan Assessment & Plan (1) Major depressive disorder, recurrent severe without psychotic features: Status: Acute Code(s): F33.2 - Major depressive disorder, recurrent severe without psychotic features (2) Cognitive and neurobehavioral dysfunction following brain injury: Status: Acute Code(s): G31.89 - Other specified degenerative diseases of nervous system; F09 - Unspecified mental disorder due to known physiological condition; S06.9X9S - Unspecified intracranial injury with loss of consciousness of unspecified duration, sequela Plan The patient is a middle-age male with a past history of major depressive disorder, alcohol use disorder, TBI admitted for suicidality. He had been in the facility sterile times in the last year. Plan 1. Continue with same treatment. 2. Waiting for placement 02/16/22 Pt has been more irritable dysphoric inc depakote ck level ck ammonia needs reassurance support which he finds helpful 02/17/22 pt has been inc depakote 500 bid has had lability periods of despair 02/18/23 pt urged to use techniques to dec reactivity depakote 500 bid 02/19/2023 Continue Depakote check level in a few days 02/20/2023 Patient required alprazolam olanzapine check Depakote level 02/21: no changes Reason for contiued inpatient stay Substantial Risk for: harm to self Time Spent With Patient Time: Total time managing care of this patient today ____ minutes.
[2023-02-22] MEDS: hydrOXYzine HCL 50 MG TABLET PO (01:37)
[2023-02-22] MEDS: guaiFENesin DM 100/10/5 ML 5 ML SYRUP PO (01:37)
[2023-02-22] MEDS: ALPRAZolam 0.25 MG TABLET PO (05:31)
[2023-02-22 06:00] VITALS: BP 138/77; PULSE 83; RESP 18; TEMP 36.3; O2SAT 92
[2023-02-22] MEDS: lamoTRIgine 100 MG TABLET PO ×2 (08:19→20:38)
[2023-02-22] MEDS: polyethylene glycoL 3350 17 GM POWD.PACK PO (08:19)
[2023-02-22] MEDS: Divalproex Sodium Sprinkles 125 MG CAP.DR.SPR 500 MG PO ×2 (08:19→20:40)
[2023-02-22] MEDS: OLANZapine 2.5 MG TABLET PO ×2 (08:19→15:41)
[2023-02-22] MEDS: amLODIPine Besylate 5 MG TABLET PO (08:20)
[2023-02-22] MEDS: Tamsulosin HCL 0.4 MG CAPSULE PO (08:20)
[2023-02-22] MEDS: Venlafaxine HCl ER 75 MG CAP.ER.24H PO (08:20)
--- NOTE | 2023-02-22 13:13 | P.PNPSI_ITS ---
Subjective Subjective Date of Service: 02/22/23 Reason For Visit: Depression hopelessness irritability Interim History: Met with pt. D/W nursing. Reports today fond memories of Easter time with his mom and grandparents. Reports his feet were much more itchy in recent days. Asking for cream. Looked at feet and no evidence swelling, cellulitis etc.. He did notice some increased discomfort in his right foot between great and 2nd toe. Some point tenderness. Otherwise awaiting placement- bed will be reportedly available 04/16/23. Medication Compliance: Yes Side effects from medications: No Attending Groups: Intermittent Review of Systems Review of Systems itchy feet and right foot discomfort Mental Status Exam Mental Status Exam Narrative: Patient Appearance: Well Grooomed and Appropriate Patient Orientation: Person, Place and Situation Level of Consciousness: Awake Patient Behavior: Talkative, Anxious, Distractible and Impulsive Behavior Comments: Mood Description: Calm, Angry and Apprehensive Affect Description: Constricted, Labile and Angry Patient Cognition Impaired: No Ability to Follow Directions: Good Speech Pattern: Clear Memory Description: Working Impaired Diagnostics Vital Signs (24Hr): Vital Signs - 24 hr 02/21/23 19:35 02/22/23 06:00 Temperature 96.6 F L 97.4 F Pulse Rate 80 83 Respiratory Rate 18 18 Blood Pressure 152/74 H 138/77 Pulse Oximetry 96 92 Oxygen Delivery Method Room Air Room Air BMI result Body Mass Index 30.8 Labs 02/12/23 05:27 02/12/23 05:27 Imaging Radiology Impressions: ITS Impressions Chest X-Ray 10/20/22 15:45 IMPRESSION: 1. Low lung volumes with bibasilar linear disc atelectasis versus scarring. 2. No airspace consolidation or effusion. Head CT 11/08/22 12:29 IMPRESSION: No acute intracranial hemorrhage or territorial infarction. Stable chronic postoperative changes with gliosis and encephalomalacia in the right frontal and right temporal lobes. Ex vacuo dilatation of the ventricles and diffuse parenchymal volume loss. Right-sided craniotomy changes. Chest X-Ray 11/12/22 10:32 IMPRESSION: Hypoexpanded lungs with bibasilar platelike atelectasis. Brain MRI 11/12/22 13:15 IMPRESSION: 1. No demonstrated acute intracranial abnormalities. 2. Chronic encephalomalacia of the right temporal, right frontal, and left occipital lobes. Small regions of chronic encephalomalacia in the parasagittal aspects of the bilateral parietal lobes. Moderate underlying microangiopathy and generalized cerebral volume loss. Chest X-Ray 11/14/22 15:52 IMPRESSION: Low lung volumes, bibasilar subsegmental atelectasis and slight elevation of the right hemidiaphragm similar to previous exam. Modified Barium Swallow 11/21/22 15:11 IMPRESSION: Laryngeal penetration on several occasions but no laryngeal aspiration. Mild retention of solid food in the valleculae which cleared with subsequent oral administration of water or thin barium. Correlate with speech therapy results. Orbit CT 01/23/23 14:05 IMPRESSION: - No definite significant intraorbital soft tissue findings to assessment is limited on a noncontrast CT of the orbits. No retrobulbar mass lesions and no cellulitic changes appreciated. - There are large fluid levels within the left maxillary sinus and within the right frontal sinus the can be correlated for clinical signs of acute sinusitis. - A peripherally ossified structure extending from the dorsal margin of the right nasolacrimal duct into the right maxillary sinus is stable when compared to examinations dated back to 08/24/2008 favoring a benign etiology. Cervical Spine CT 02/14/23 22:15 IMPRESSION: 1. No acute intracranial abnormality. Stable postsurgical changes with right frontotemporal encephalomalacia, global volume loss, and extraocular dilatation of the right lateral ventricle. 2. No cervical spine fracture or traumatic malalignment. Head CT 02/14/23 22:15 IMPRESSION: 1. No acute intracranial abnormality. Stable postsurgical changes with right frontotemporal encephalomalacia, global volume loss, and extraocular dilatation of the right lateral ventricle. 2. No cervical spine fracture or traumatic malalignment. Hip/Pelvis X-Ray 02/14/23 22:25 IMPRESSION: Moderate degenerative changes of the right hip with loss of superolateral joint space. Similar chronic posttraumatic deformity of the right femoral neck with chronic foreshortening. Status post left total hip arthroplasty in unchanged alignment however the lack of a crosstable lateral view limits assessment for dislocation. No acute fracture or dislocation appreciated on the available views. Medications Medications Current Medications Acetaminophen (Acetaminophen 325 Mg Tablet) 975 mg PO Q6H PRN PRN Reason: Headache/Pain Mild Scale (1-3) Last Admin: 02/18/23 20:18 Dose: 975 mg Albuterol Sulfate (Albuterol Sulfate 90 Mcg 8 Gm Inhaler) 2 puff INHALE Q6H PRN PRN Reason: Wheezing Alprazolam (Alprazolam 0.5 Mg Tablet) 0.5 mg PO BEDTIME [facility] Last Admin: 02/21/23 21:05 Dose: 0.5 mg Alprazolam (Alprazolam 0.25 Mg Tablet) 0.25 mg PO Q4H PRN PRN Reason: Anxiety Last Admin: 02/22/23 05:31 Dose: 0.25 mg Amlodipine Besylate (Amlodipine Besylate 5 Mg Tablet) 5 mg PO DAILY [facility]; Protocol Last Admin: 02/22/23 08:20 Dose: 5 mg Bisacodyl (Bisacodyl 10 Mg Supp.Rect) 10 mg [place] DAILY PRN PRN Reason: Constipation Divalproex Sodium (Divalproex Sodium Sprinkles 125 Mg ) 500 mg PO BID [facility] Last Admin: 02/22/23 08:19 Dose: 500 mg Guaifenesin/Dextromethorphan (Guaifenesin Dm 100/10/5 Ml 5 Ml Syrup) 5 ml PO Q4H PRN PRN Reason: cough Last Admin: 02/22/23 01:37 Dose: 5 ml Hydroxyzine HCl (Hydroxyzine Hcl 50 Mg Tablet) 50 mg PO Q4H PRN PRN Reason: Anxiety Last Admin: 02/22/23 01:37 Dose: 50 mg Ibuprofen (Ibuprofen 600 Mg Tablet) 600 mg PO Q6H PRN PRN Reason: Pain, Moderate (Pain Scale 4-6 Last Admin: 02/20/23 08:58 Dose: 600 mg Lamotrigine (Lamotrigine 100 Mg Tablet) 100 mg PO BID [facility] Last Admin: 02/22/23 08:19 Dose: 100 mg Latanoprost (Latanoprost 0.005 % Ophth No 2.5 Ml Drops) 1 drop EYE-BOTH BEDTIME [facility] Last Admin: 02/21/23 21:04 Dose: 1 drop Lidocaine (Lidocaine 5 % Ointment 35 Gm) 1 appl TOPICAL Q6H PRN; Protocol PRN Reason: Hemorrhoid pain Last Admin: 02/17/23 21:23 Dose: 1 appl Multi-Ingred Cream/Lotion/Oil/Oint (Mineral Oil/Petrolatum,White 106 Gm Tube) 1 appl TOPICAL BID PRN; Protocol PRN Reason: dry skin Nortriptyline HCl (Nortriptyline Hcl 25 Mg Capsule) 50 mg PO BEDTIME [facility] Last Admin: 02/21/23 21:08 Dose: 50 mg Nystatin (Nystatin Powder 15 Gm Bottle) 1 appl TOPICAL BID [facility]; Protocol Last Admin: 02/22/23 08:20 Dose: Not Given Olanzapine (Olanzapine 2.5 Mg Tablet) 2.5 mg PO DAILY [facility] Last Admin: 02/22/23 08:19 Dose: 2.5 mg Olanzapine (Olanzapine 2.5 Mg Tablet) 2.5 mg PO Q4H PRN PRN Reason: anxiety/restlessness Olanzapine (Olanzapine 2.5 Mg Tablet) 2.5 mg PO DAILY@1500 [facility] Last Admin: 02/21/23 14:54 Dose: 2.5 mg Olanzapine (Olanzapine 5 Mg Tablet) 5 mg PO BEDTIME [facility] Last Admin: 02/21/23 21:04 Dose: 5 mg Polyethylene Glycol (Polyethylene Glycol 3350 17 Gm Powd.Pack) 17 gm PO BID [facility] Last Admin: 02/22/23 08:19 Dose: 17 gm Senna/Docusate Sodium (Sennosides/Docusate Sodium Tablet) 2 tab PO BEDTIME [facility] Last Admin: 02/21/23 21:05 Dose: 2 tab Sodium Biphosphate/Sodium Phosphate (Sodium Phosphate,Todd-Dibasic 133 Ml Enema) 133 ml [place] ONCE PRN PRN Reason: Constipation Sodium Chloride (Sodium Chloride 0.65 % Nasal 44 Ml Sprbtl) 1 spray NOSTRIL-B Q1H PRN PRN Reason: Nasal Congestion Last Admin: 02/18/23 22:20 Dose: 1 spray Tamsulosin HCl (Tamsulosin Hcl 0.4 Mg Capsule) 0.4 mg PO DAILY [facility] Last Admin: 02/22/23 08:20 Dose: 0.4 mg Trazodone HCl (Trazodone Hcl 100 Mg Tablet) 200 mg PO BEDTIME [facility] Last Admin: 02/21/23 21:07 Dose: 200 mg Venlafaxine HCl (Venlafaxine Hcl Er 75 Mg Cap.Er.24h) 75 mg PO DAILY [facility] Last Admin: 02/22/23 08:20 Dose: 75 mg Allergies Allergies Allergy/AdvReac Type Severity Reaction Status Date / Time fentanyl [FENTANYL] Allergy Intermediate unknown Verified 04/08/22 07:00 Assessment & Plan Assessment & Plan (1) Major depressive disorder, recurrent severe without psychotic features: Status: Acute Code(s): F33.2 - Major depressive disorder, recurrent severe without psychotic features (2) Cognitive and neurobehavioral dysfunction following brain injury: Status: Acute Code(s): G31.89 - Other specified degenerative diseases of nervous system; F09 - Unspecified mental disorder due to known physiological condition; S06.9X9S - Uns pecified intracranial injury with loss of consciousness of unspecified duration, sequela Plan The patient is a middle-age male with a past history of major depressive disorder, alcohol use disorder, TBI admitted for suicidality. He had been in the facility sterile times in the last year. Plan 1. Continue with same treatment. 2. Waiting for placement 02/16/22 Pt has been more irritable dysphoric inc depakote ck level ck ammonia needs reassurance support which he finds helpful 02/17/22 pt has been inc depakote 500 bid has had lability periods of despair 02/18/23 pt urged to use techniques to dec reactivity depakote 500 bid 02/19/2023 Continue Depakote check level in a few days 02/20/2023 Patient required alprazolam olanzapine check Depakote level 02/21: no changes 02/22/2023: Hydrocortisone cream ordered for feet and right foot x-ray ordered. Reason for contiued inpatient stay Substantial Risk for: rapid decompensation Time Spent With Patient Time: Total time managing care of this patient today ____ minutes.
[2023-02-22 18:00] VITALS: BP 151/78; PULSE 78; RESP 17; TEMP 36.7; O2SAT 97
[2023-02-22] MEDS: Sennosides/Docusate Sodium TABLET 2 TAB PO (20:38)
[2023-02-22] MEDS: Nortriptyline HCl 25 MG CAPSULE 50 MG PO (20:40)
[2023-02-22] MEDS: traZODone HCL 100 MG TABLET 200 MG PO (20:40)
[2023-02-22] MEDS: ALPRAZolam 0.5 MG TABLET PO (20:40)
[2023-02-22] MEDS: Latanoprost 0.005 % Ophth Sol 2.5 ML DROPS 1 DROP EYE-BOTH (20:44)
[2023-02-22] MEDS: Nystatin Powder 15 GM BOTTLE 1 APPL TOPICAL (20:44)
[2023-02-22] MEDS: Lidocaine 5 % Ointment 35 GM 1 APPL TOPICAL (20:44)
[2023-02-22] MEDS: OLANZapine 5 MG TABLET PO (20:46)
[2023-02-23 06:00] VITALS: BP 164/82; PULSE 78; RESP 14; TEMP 36.5; O2SAT 98
[2023-02-23] MEDS: Tamsulosin HCL 0.4 MG CAPSULE PO (08:41)
[2023-02-23] MEDS: OLANZapine 2.5 MG TABLET PO ×2 (08:41→14:36)
[2023-02-23] MEDS: amLODIPine Besylate 5 MG TABLET PO (08:41)
[2023-02-23] MEDS: lamoTRIgine 100 MG TABLET PO ×2 (08:41→20:54)
[2023-02-23] MEDS: Venlafaxine HCl ER 75 MG CAP.ER.24H PO (08:41)
[2023-02-23] MEDS: polyethylene glycoL 3350 17 GM POWD.PACK PO (08:42)
[2023-02-23] MEDS: Divalproex Sodium Sprinkles 125 MG CAP.DR.SPR 500 MG PO ×2 (08:42→20:55)
--- NOTE | 2023-02-23 10:23 | P.PNPSI_ITS ---
Subjective Subjective Date of Service: 02/23/23 Reason For Visit: Depression hopelessness irritability Subjective Notes: Conditional Voluntary Healthcare Proxy: No Guardianship: No Interim History: Patient complains of right and left foot pain and rash. Periods of irritability continue feels somewhat improved with Depakote question rash on lower extremities Medication Compliance: Yes Mental Status Exam Mental Status Exam Narrative: Patient Appearance: Well Grooomed and Appropriate Patient Orientation: Person, Place and Situation Level of Consciousness: Awake Patient Behavior: Talkative, Anxious, Distractible and Impulsive Behavior Comments: Mood Description: Calm, Angry and Apprehensive Affect Description: Constricted, Labile and Angry Patient Cognition Impaired: No Ability to Follow Directions: Good Speech Pattern: Clear Memory Description: Working Impaired Diagnostics Vital Signs (24Hr): Vital Signs - 24 hr 02/22/23 18:00 02/23/23 06:00 Temperature 98.0 F 97.7 F Pulse Rate 78 78 Respiratory Rate 17 14 Blood Pressure 151/78 H 164/82 H Pulse Oximetry 97 98 Oxygen Delivery Method Room Air Room Air BMI result Body Mass Index 30.8 Labs 02/12/23 05:27 02/12/23 05:27 Imaging Radiology Impressions: ITS Impressions Chest X-Ray 10/20/22 15:45 IMPRESSION: 1. Low lung volumes with bibasilar linear disc atelectasis versus scarring. 2. No airspace consolidation or effusion. Head CT 11/08/22 12:29 IMPRESSION: No acute intracranial hemorrhage or territorial infarction. Stable chronic postoperative changes with gliosis and encephalomalacia in the right frontal and right temporal lobes. Ex vacuo dilatation of the ventricles and diffuse parenchymal volume loss. Right-sided craniotomy changes. Chest X-Ray 11/12/22 10:32 IMPRESSION: Hypoexpanded lungs with bibasilar platelike atelectasis. Brain MRI 11/12/22 13:15 IMPRESSION: 1. No demonstrated acute intracranial abnormalities. 2. Chronic encephalomalacia of the right temporal, right frontal, and left occipital lobes. Small regions of chronic encephalomalacia in the parasagittal aspects of the bilateral parietal lobes. Moderate underlying microangiopathy and generalized cerebral volume loss. Chest X-Ray 11/14/22 15:52 IMPRESSION: Low lung volumes, bibasilar subsegmental atelectasis and slight elevation of the right hemidiaphragm similar to previous exam. Modified Barium Swallow 11/21/22 15:11 IMPRESSION: Laryngeal penetration on several occasions but no laryngeal aspiration. Mild retention of solid food in the valleculae which cleared with subsequent oral administration of water or thin barium. Correlate with speech therapy results. Orbit CT 01/23/23 14:05 IMPRESSION: - No definite significant intraorbital soft tissue findings to assessment is limited on a noncontrast CT of the orbits. No retrobulbar mass lesions and no cellulitic changes appreciated. - There are large fluid levels within the left maxillary sinus and within the right frontal sinus the can be correlated for clinical signs of acute sinusitis. - A peripherally ossified structure extending from the dorsal margin of the right nasolacrimal duct into the right maxillary sinus is stable when compared to examinations dated back to 08/24/2008 favoring a benign etiology. Cervical Spine CT 02/14/23 22:15 IMPRESSION: 1. No acute intracranial abnormality. Stable postsurgical changes with right frontotemporal encephalomalacia, global volume loss, and extraocular dilatation of the right lateral ventricle. 2. No cervical spine fracture or traumatic malalignment. Head CT 02/14/23 22:15 IMPRESSION: 1. No acute intracranial abnormality. Stable postsurgical changes with right frontotemporal encephalomalacia, global volume loss, and extraocular dilatation of the right lateral ventricle. 2. No cervical spine fracture or traumatic malalignment. Hip/Pelvis X-Ray 02/14/23 22:25 IMPRESSION: Moderate degenerative changes of the right hip with loss of superolateral joint space. Similar chronic posttraumatic deformity of the right femoral neck with chronic foreshortening. Status post left total hip arthroplasty in unchanged alignment however the lack of a crosstable lateral view limits assessment for dislocation. No acute fracture or dislocation appreciated on the available views. Foot X-Ray 02/22/23 13:50 IMPRESSION: * Postsurgical changes of arthrodesis first metatarsophalangeal joint. * There is developed large osteophyte from the head of the first metatarsal protruding laterally abutting the head of the second metatarsal. This might be the source of patient's pain. * Underlying degenerative osteoarthritis. Medications Medications Current Medications Acetaminophen (Acetaminophen 325 Mg Tablet) 975 mg PO Q6H PRN PRN Reason: Headache/Pain Mild Scale (1-3) Last Admin: 02/18/23 20:18 Dose: 975 mg Albuterol Sulfate (Albuterol Sulfate 90 Mcg 8 Gm Inhaler) 2 puff INHALE Q6H PRN PRN Reason: Wheezing Alprazolam (Alprazolam 0.5 Mg Tablet) 0.5 mg PO BEDTIME [facility] Last Admin: 02/22/23 20:40 Dose: 0.5 mg Alprazolam (Alprazolam 0.25 Mg Tablet) 0.25 mg PO Q4H PRN PRN Reason: Anxiety Last Admin: 02/22/23 05:31 Dose: 0.25 mg Amlodipine Besylate (Amlodipine Besylate 5 Mg Tablet) 5 mg PO DAILY [facility]; Protocol Last Admin: 02/23/23 08:41 Dose: 5 mg Bisacodyl (Bisacodyl 10 Mg Supp.Rect) 10 mg ID DAILY PRN PRN Reason: Constipation Divalproex Sodium (Divalproex Sodium Sprinkles 125 Mg Cap.) 500 mg PO BID [facility] Last Admin: 02/23/23 08:42 Dose: 500 mg Guaifenesin/Dextromethorphan (Guaifenesin Dm 100/10/5 Ml 5 Ml Syrup) 5 ml PO Q4H PRN PRN Reason: cough Last Admin: 02/22/23 01:37 Dose: 5 ml Hydrocortisone (Hydrocortisone 1 % Cream 28.35 Gm Tube) 1 appl TOPICAL BID PRN; Protocol PRN Reason: itchy feet Hydroxyzine HCl (Hydroxyzine Hcl 50 Mg Tablet) 50 mg PO Q4H PRN PRN Reason: Anxiety Last Admin: 02/22/23 01:37 Dose: 50 mg Ibuprofen (Ibuprofen 600 Mg Tablet) 600 mg PO Q6H PRN PRN Reason: Pain, Moderate (Pain Scale 4-6 Last Admin: 02/20/23 08:58 Dose: 600 mg Lamotrigine (Lamotrigine 100 Mg Tablet) 100 mg PO BID [facility] Last Admin: 02/23/23 08:41 Dose: 100 mg Latanoprost (Latanoprost 0.005 % Ophth No 2.5 Ml Drops) 1 drop EYE-BOTH BEDTIME [facility] Last Admin: 02/22/23 20:44 Dose: 1 drop Lidocaine (Lidocaine 5 % Ointment 35 Gm) 1 appl TOPICAL Q6H PRN; Protocol PRN Reason: Hemorrhoid pain Last Admin: 02/22/23 20:44 Dose: 1 appl Magnesium Hydroxide (Milk Of Magnesia 30 Ml Oral.Susp) 30 ml PO BID PRN PRN Reason: constipation, stomach/GI upset Multi-Ingred Cream/Lotion/Oil/Oint (Mineral Oil/Petrolatum,White 106 Gm Tube) 1 appl TOPICAL BID PRN; Protocol PRN Reason: dry skin Nortriptyline HCl (Nortriptyline Hcl 25 Mg Capsule) 50 mg PO BEDTIME [facility] Last Admin: 02/22/23 20:40 Dose: 50 mg Nystatin (Nystatin Powder 15 Gm Bottle) 1 appl TOPICAL BID [facility]; Protocol Last Admin: 02/23/23 09:19 Dose: Not Given Olanzapine (Olanzapine 2.5 Mg Tablet) 2.5 mg PO DAILY [facility] Last Admin: 02/23/23 08:41 Dose: 2.5 mg Olanzapine (Olanzapine 2.5 Mg Tablet) 2.5 mg PO Q4H PRN PRN Reason: anxiety/restlessness Olanzapine (Olanzapine 2.5 Mg Tablet) 2.5 mg PO DAILY@1500 [facility] Last Admin: 02/22/23 15:41 Dose: 2.5 mg Olanzapine (Olanzapine 5 Mg Tablet) 5 mg PO BEDTIME [facility] Last Admin: 02/22/23 20:46 Dose: 5 mg Polyethylene Glycol (Polyethylene Glycol 3350 17 Gm Powd.Pack) 17 gm PO BID [facility] Last Admin: 02/23/23 08:42 Dose: 17 gm Senna/Docusate Sodium (Sennosides/Docusate Sodium Tablet) 2 tab PO BEDTIME [facility] Last Admin: 02/22/23 20:38 Dose: 2 tab Sodium Biphosphate/Sodium Phosphate (Sodium Phosphate,Burt-Dibasic 133 Ml Enema) 133 ml [place] ONCE PRN PRN Reason: Constipation Sodium Chloride (Sodium Chloride 0.65 % Nasal 44 Ml Sprbtl) 1 spray NOSTRIL-B Q1H PRN PRN Reason: Nasal Congestion Last Admin: 02/18/23 22:20 Dose: 1 spray Tamsulosin HCl (Tamsulosin Hcl 0.4 Mg Capsule) 0.4 mg PO DAILY [facility] Last Admin: 02/23/23 08:41 Dose: 0.4 mg Trazodone HCl (Trazodone Hcl 100 Mg Tablet) 200 mg PO BEDTIME [facility] Last Admin: 02/22/23 20:40 Dose: 200 mg Venlafaxine HCl (Venlafaxine Hcl Er 75 Mg Cap.Er.24h) 75 mg PO DAILY [facility] Last Admin: 02/23/23 08:41 Dose: 75 mg Allergies Allergies Allergy/AdvReac Type Severity Reaction Status Date / Time fentanyl [FENTANYL] Allergy Intermediate unknown Verified 04/08/22 07:00 Assessment & Plan Assessment & Plan (1) Major depressive disorder, recurrent severe without psychotic features: Status: Acute Code(s): F33.2 - Major depressive disorder, recurrent severe without psychotic features (2) Cognitive and neurobehavioral dysfunction following brain injury: Status: Acute Code(s): G31.89 - Other specified degenerative diseases of nervous system; F09 - U nspecified mental disorder due to known physiological condition; S06.9X9S - Unspecified intracranial injury with loss of consciousness of unspecified duration, sequela Plan The patient is a middle-age male with a past history of major depressive disorder, alcohol use disorder, TBI admitted for suicidality. He had been in the facility sterile times in the last year. Plan 1. Continue with same treatment. 2. Waiting for placement 02/16/22 Pt has been more irritable dysphoric inc depakote ck level ck ammonia needs reassurance support which he finds helpful 02/17/22 pt has been inc depakote 500 bid has had lability periods of despair 02/18/23 pt urged to use techniques to dec reactivity depakote 500 bid 02/19/2023 Continue Depakote check level in a few days 02/20/2023 Patient required alprazolam olanzapine check Depakote level 02/21: no changes 02/22/2023: Hydrocortisone cream ordered for feet and right foot x-ray ordered. 02/23/2023 Continue alprazolam Depakote olanzapine med consult for lower ext Patient educated on: diagnosis, medication risk/benefits and medical condition Informed Consent: understands Reason for contiued inpatient stay Substantial Risk for: harm to self, inability to function, rapid decompensation and med/psych decompensation Time Spent With Patient Time: Total time managing care of this patient today ____ minutes.
--- NOTE | 2023-02-23 12:36 | P.EN_ITS ---
Event Note Date of Service: 02/23/23 Event Note: Patient seen and examined for bilateral foot pain and rash/pruritus of the feet ankles. Patient has an intertriginous dermatitis with skin peeling at the bases of the toes bialterally consistent with tinea pedia. There is also significnat onychomycosis bilaterally. Would recommend clotrimazole cream to the bases of the toes bilaterally BID x3 weeks. The rash of the dorsal aspect of the feet and lateral aspect of the ankloes if more papular, dry/peeling, with excoriation and seems most consistent with an atopic vs contact dermatitis. Has been worsening gradually over the last month. Continue hydrocortisone cream to the feet/ankle area of rash (avoiding the toes) BID x 1 week and then prn. Would recommend emollient moisturizer BID to the BLE and leave open to air at night. Xray of the right s/p bunionectomy with surgical hardware in place. There is a l arge osteophyte growing from the head of the first metatarsal protruding laterally and abuts the head of the second metatarsal which is likely the cause of patient's constant discomfort. Chronic pain of the left foot is likely related to hallux valgus deformity of the left foot. Xray of the left foot ordered to evaluate for any further bony abnormality that may be contributory. Pain management is goal while inpt. Continue tylenol, ibuprofen. Can consider adding tramadol for management. Ultimately need outpt follow up with podiatry. Thank you for allowing me to participate in this consult. Signing off at this time. Please do not hesitate to call for further questions. Time Spent With Patient Time: Total time managing care of this patient today ____ minutes.
[2023-02-23 18:04] VITALS: BP 111/67; PULSE 78; RESP 16; TEMP 36.4; O2SAT 97
[2023-02-23] MEDS: Nortriptyline HCl 25 MG CAPSULE 50 MG PO (20:53)
[2023-02-23] MEDS: Sennosides/Docusate Sodium TABLET 2 TAB PO (20:54)
[2023-02-23] MEDS: OLANZapine 5 MG TABLET PO (20:55)
[2023-02-23] MEDS: ALPRAZolam 0.5 MG TABLET PO (20:56)
[2023-02-23] MEDS: traZODone HCL 100 MG TABLET 200 MG PO (20:57)
[2023-02-23] MEDS: Hydrocortisone 1 % Cream 28.35 GM TUBE 1 APPL TOPICAL (21:19)
[2023-02-23] MEDS: Nystatin Powder 15 GM BOTTLE 1 APPL TOPICAL (21:23)
[2023-02-23] MEDS: Latanoprost 0.005 % Ophth Sol 2.5 ML DROPS 1 DROP EYE-BOTH (21:25)
[2023-02-24] MEDS: guaiFENesin DM 100/10/5 ML 5 ML SYRUP PO ×2 (03:50→22:01)
[2023-02-24] MEDS: hydrOXYzine HCL 50 MG TABLET PO ×2 (03:50→19:37)
[2023-02-24 07:30] VITALS: BP 167/82; PULSE 74; RESP 16; TEMP 36.1; O2SAT 95
[2023-02-24] MEDS: polyethylene glycoL 3350 17 GM POWD.PACK PO (09:10)
[2023-02-24] MEDS: Venlafaxine HCl ER 75 MG CAP.ER.24H PO (09:10)
[2023-02-24] MEDS: lamoTRIgine 100 MG TABLET PO ×2 (09:10→21:00)
[2023-02-24] MEDS: amLODIPine Besylate 5 MG TABLET PO (09:10)
[2023-02-24] MEDS: Divalproex Sodium Sprinkles 125 MG CAP.DR.SPR 500 MG PO ×2 (09:11→20:57)
[2023-02-24] MEDS: OLANZapine 2.5 MG TABLET PO ×2 (09:11→14:27)
[2023-02-24] MEDS: Tamsulosin HCL 0.4 MG CAPSULE PO (09:11)
[2023-02-24] MEDS: Hydrocortisone 1 % Cream 28.35 GM TUBE 1 APPL TOPICAL (09:13)
[2023-02-24] MEDS: Clotrimazole 1 % Cream 15 GM TUBE 1 APPL TOPICAL ×2 (09:13→22:14)
[2023-02-24] MEDS: Nystatin Powder 15 GM BOTTLE 1 APPL TOPICAL ×2 (09:26→22:13)
--- NOTE | 2023-02-24 12:25 | P.PNPSI_ITS ---
Subjective Subjective Date of Service: 02/24/23 Reason For Visit: Depression hopelessness irritability Subjective Notes: Conditional Voluntary Interim History: The nursing staff reported that he has been irritable at times, fully compliant with treatment. On interview the patient reports that he is dysphoric but no suicidal ideation. Review his list of medications and he agreed to stay on the same medications. Mental Status Exam Mental Status Exam Patient Appearance: Well Grooomed and Appropriate Patient Orientation: Person and Situation Level of Consciousness: Awake and Appropriate Patient Behavior: Guarded and Passive Mood Description: Calm Affect Description: Constricted Ability to Follow Directions: Good Speech Pattern: Clear Hallucinations: None Delusions: Not Present Thought Process: Linear Thought Content: positive for Circumstantial Judgement: Fair Diagnostics Vital Signs (24Hr): Vital Signs - 24 hr 02/23/23 18:04 02/24/23 07:30 Temperature 97.6 F 97.0 F Pulse Rate 78 74 Respiratory Rate 16 16 Blood Pressure 111/67 167/82 H Pulse Oximetry 97 95 Oxygen Delivery Method Room Air Room Air BMI result Body Mass Index 30.8 Labs 02/12/23 05:27 02/12/23 05:27 Imaging Radiology Impressions: ITS Impressions Chest X-Ray 10/20/22 15:45 IMPRESSION: 1. Low lung volumes with bibasilar linear disc atelectasis versus scarring. 2. No airspace consolidation or effusion. Head CT 11/08/22 12:29 IMPRESSION: No acute intracranial hemorrhage or territorial infarction. Stable chronic postoperative changes with gliosis and encephalomalacia in the right frontal and right temporal lobes. Ex vacuo dilatation of the ventricles and diffuse parenchymal volume loss. Right-sided craniotomy changes. Chest X-Ray 11/12/22 10:32 IMPRESSION: Hypoexpanded lungs with bibasilar platelike atelectasis. Brain MRI 11/12/22 13:15 IMPRESSION: 1. No demonstrated acute intracranial abnormalities. 2. Chronic encephalomalacia of the right temporal, right frontal, and left occipital lobes. Small regions of chronic encephalomalacia in the parasagittal aspects of the bilateral parietal lobes. Moderate underlying microangiopathy and generalized cerebral volume loss. Chest X-Ray 11/14/22 15:52 IMPRESSION: Low lung volumes, bibasilar subsegmental atelectasis and slight elevation of the right hemidiaphragm similar to previous exam. Modified Barium Swallow 11/21/22 15:11 IMPRESSION: Laryngeal penetration on several occasions but no laryngeal aspiration. Mild retention of solid food in the valleculae which cleared with subsequent oral administration of water or thin barium. Correlate with speech therapy results. Orbit CT 01/23/23 14:05 IMPRESSION: - No definite significant intraorbital soft tissue findings to assessment is limited on a noncontrast CT of the orbits. No retrobulbar mass lesions and no cellulitic changes appreciated. - There are large fluid levels within the left maxillary sinus and within the right frontal sinus the can be correlated for clinical signs of acute sinusitis. - A peripherally ossified structure extending from the dorsal margin of the right nasolacrimal duct into the right maxillary sinus is stable when compared to examinations dated back to 08/24/2008 favoring a benign etiology. Cervical Spine CT 02/14/23 22:15 IMPRESSION: 1. No acute intracranial abnormality. Stable postsurgical changes with right frontotemporal encephalomalacia, global volume loss, and extraocular dilatation of the right lateral ventricle. 2. No cervical spine fracture or traumatic malalignment. Head CT 02/14/23 22:15 IMPRESSION: 1. No acute intracranial abnormality. Stable postsurgical changes with right frontotemporal encephalomalacia, global volume loss, and extraocular dilatation of the right lateral ventricle. 2. No cervical spine fracture or traumatic malalignment. Hip/Pelvis X-Ray 02/14/23 22:25 IMPRESSION: Moderate degenerative changes of the right hip with loss of superolateral joint space. Similar chronic posttraumatic deformity of the right femoral neck with chronic foreshortening. Status post left total hip arthroplasty in unchanged alignment however the lack of a crosstable lateral view limits assessment for dislocation. No acute fracture or dislocation appreciated on the available views. Foot X-Ray 02/22/23 13:50 IMPRESSION: * Postsurgical changes of arthrodesis first metatarsophalangeal joint. * There is developed large osteophyte from the head of the first metatarsal protruding laterally abutting the head of the second metatarsal. This might be the source of patient's pain. * Underlying degenerative osteoarthritis. Foot X-Ray 02/23/23 14:11 IMPRESSION: Mild degenerative changes MTP, PIP and DIP joints. No visible acute fracture or dislocation seen. Medications Medications Current Medications Acetaminophen (Acetaminophen 325 Mg Tablet) 975 mg PO Q6H PRN PRN Reason: Headache/Pain Mild Scale (1-3) Last Admin: 02/18/23 20:18 Dose: 975 mg Albuterol Sulfate (Albuterol Sulfate 90 Mcg 8 Gm Inhaler) 2 puff INHALE Q6H PRN PRN Reason: Wheezing Alprazolam (Alprazolam 0.5 Mg Tablet) 0.5 mg PO BEDTIME TAZ Last Admin: 02/23/23 20:56 Dose: 0.5 mg Alprazolam (Alprazolam 0.25 Mg Tablet) 0.25 mg PO Q4H PRN PRN Reason: Anxiety Last Admin: 02/22/23 05:31 Dose: 0.25 mg Amlodipine Besylate (Amlodipine Besylate 5 Mg Tablet) 5 mg PO DAILY [facility]; Protocol Last Admin: 02/24/23 09:10 Dose: 5 mg Bisacodyl (Bisacodyl 10 Mg Supp.Rect) 10 mg AL DAILY PRN PRN Reason: Constipation Clotrimazole (Clotrimazole 1 % Cream 15 Gm Tube) 1 appl TOPICAL BID TAZ; Prot ocol Last Admin: 02/24/23 09:13 Dose: 1 appl Divalproex Sodium (Divalproex Sodium Sprinkles 125 Mg ) 500 mg PO BID [facility] Last Admin: 02/24/23 09:11 Dose: 500 mg Guaifenesin/Dextromethorphan (Guaifenesin Dm 100/10/5 Ml 5 Ml Syrup) 5 ml PO Q4H PRN PRN Reason: cough Last Admin: 02/24/23 03:50 Dose: 5 ml Hydrocortisone (Hydrocortisone 1 % Cream 28.35 Gm Tube) 1 appl TOPICAL BID PRN; Protocol PRN Reason: itchy feet Last Admin: 02/24/23 09:13 Dose: 1 appl Hydroxyzine HCl (Hydroxyzine Hcl 50 Mg Tablet) 50 mg PO Q4H PRN PRN Reason: Anxiety Last Admin: 02/24/23 03:50 Dose: 50 mg Ibuprofen (Ibuprofen 600 Mg Tablet) 600 mg PO Q6H PRN PRN Reason: Pain, Moderate (Pain Scale 4-6 Last Admin: 02/20/23 08:58 Dose: 600 mg Lamotrigine (Lamotrigine 100 Mg Tablet) 100 mg PO BID [facility] Last Admin: 02/24/23 09:10 Dose: 100 mg Latanoprost (Latanoprost 0.005 % Ophth No 2.5 Ml Drops) 1 drop EYE-BOTH BEDTIME [facility] Last Admin: 02/23/23 21:25 Dose: 1 drop Lidocaine (Lidocaine 5 % Ointment 35 Gm) 1 appl TOPICAL Q6H PRN; Protocol PRN Reason: Hemorrhoid pain Last Admin: 02/22/23 20:44 Dose: 1 appl Lidocaine (Lidocaine 5 % Ointment 35 Gm) 1 appl TOPICAL Q6H PRN; Protocol PRN Reason: pain r foot Magnesium Hydroxide (Milk Of Magnesia 30 Ml Oral.Susp) 30 ml PO BID PRN PRN Reason: constipation, stomach/GI upset Multi-Ingred Cream/Lotion/Oil/Oint (Mineral Oil/Petrolatum,White 106 Gm Tube) 1 appl TOPICAL BID PRN; Protocol PRN Reason: dry skin Nortriptyline HCl (Nortriptyline Hcl 25 Mg Capsule) 50 mg PO BEDTIME [facility] Last Admin: 02/23/23 20:53 Dose: 50 mg Nystatin (Nystatin Powder 15 Gm Bottle) 1 appl TOPICAL BID TAZ; Protocol Last Admin: 02/24/23 09:26 Dose: 1 appl Olanzapine (Olanzapine 2.5 Mg Tablet) 2.5 mg PO DAILY [facility] Last Admin: 02/24/23 09:11 Dose: 2.5 mg Olanzapine (Olanzapine 2.5 Mg Tablet) 2.5 mg PO Q4H PRN PRN Reason: anxiety/restlessness Olanzapine (Olanzapine 2.5 Mg Tablet) 2.5 mg PO DAILY@1500 [facility] Last Admin: 02/23/23 14:36 Dose: 2.5 mg Olanzapine (Olanzapine 5 Mg Tablet) 5 mg PO BEDTIME TAZ Last Admin: 02/23/23 20:55 Dose: 5 mg Polyethylene Glycol (Polyethylene Glycol 3350 17 Gm Powd.Pack) 17 gm PO BID [facility] Last Admin: 02/24/23 09:10 Dose: 17 gm Senna/Docusate Sodium (Sennosides/Docusate Sodium Tablet) 2 tab PO BEDTIME [facility] Last Admin: 02/23/23 20:54 Dose: 1 tab Sodium Biphosphate/Sodium Phosphate (Sodium Phosphate,[place]-Dibasic 133 Ml Enema) 133 ml AL ONCE PRN PRN Reason: Constipation Sodium Chloride (Sodium Chloride 0.65 % Nasal 44 Ml Sprbtl) 1 spray NOSTRIL-B Q1H PRN PRN Reason: Nasal Congestion Last Admin: 02/18/23 22:20 Dose: 1 spray Tamsulosin HCl (Tamsulosin Hcl 0.4 Mg Capsule) 0.4 mg PO DAILY [facility] Last Admin: 02/24/23 09:11 Dose: 0.4 mg Trazodone HCl (Trazodone Hcl 100 Mg Tablet) 200 mg PO BEDTIME [facility] Last Admin: 02/23/23 20:57 Dose: 200 mg Venlafaxine HCl (Venlafaxine Hcl Er 75 Mg Cap.Er.24h) 75 mg PO DAILY [facility] Last Admin: 02/24/23 09:10 Dose: 75 mg Allergies Allergies Allergy/AdvReac Type Severity Reaction Status Date / Time fentanyl [FENTANYL] Allergy Intermediate unknown Verified 04/08/22 07:00 Assessment & Plan Assessment & Plan (1) Major depressive disorder, recurrent severe without psychotic features: Status: Acute Code(s): F33.2 - Major depressive disorder, recurrent severe without psychotic features (2) Cognitive and neurobehavioral dysfunction following brain injury: Status: Acute Code(s): G31.89 - Other specified degenerative diseases of nervous system; F09 - Unspecified mental disorder due to known physiological condition; S06.9X9S - Unspecified intracranial injury with loss of consciousness of unspecified duration, sequela Plan The patient is a middle-age male with a past history of major depressive disorder, alcohol use disorder, TBI admitted for suicidality. He had been in the facility sterile times in the last year. Plan 1. Continue with same treatment. 2. Waiting for placement 02/16/22 Pt has been more irritable dysphoric inc depakote ck level ck ammonia needs reassurance support which he finds helpful 02/17/22 pt has been inc depakote 500 bid has had lability periods of despair 02/18/23 pt urged to use techniques to dec reactivity depakote 500 bid 02/19/2023 Continue Depakote check level in a few days 02/20/2023 Patient required alprazolam olanzapine check Depakote level 02/21: no changes 02/22/2023: Hydrocortisone cream ordered for feet and right foot x-ray ordered. 02/23/2023 Continue alprazolam Depakote olanzapine med consult for lower ext 02/24 continue same treatment Reason for contiued inpatient stay Substantial Risk for: inability to function, rapid decompensation and med/psych decompensation Time Spent With Patient Time: Total time managing care of this patient today __20__ minutes.
[2023-02-24 18:00] VITALS: BP 118/54; PULSE 106; RESP 16; TEMP 36.4; O2SAT 92
[2023-02-24] MEDS: Ibuprofen 600 MG TABLET PO (19:36)
[2023-02-24] MEDS: Acetaminophen 325 MG TABLET 975 MG PO (19:39)
[2023-02-24] MEDS: Nortriptyline HCl 25 MG CAPSULE 50 MG PO (20:59)
[2023-02-24] MEDS: traZODone HCL 100 MG TABLET 200 MG PO (21:00)
[2023-02-24] MEDS: ALPRAZolam 0.5 MG TABLET PO (21:00)
[2023-02-24] MEDS: OLANZapine 5 MG TABLET PO (21:01)
[2023-02-24] MEDS: Latanoprost 0.005 % Ophth Sol 2.5 ML DROPS 1 DROP EYE-BOTH (21:05)
[2023-02-24] MEDS: Sodium Chloride 0.65 % Nasal 44 ML SPRBTL 1 SPRAY NOSTRIL-B (21:05)
[2023-02-24] MEDS: Sennosides/Docusate Sodium TABLET 2 TAB PO (22:20)
[2023-02-25] MEDS: Acetaminophen 325 MG TABLET 975 MG PO ×2 (06:30→21:05)
[2023-02-25] MEDS: guaiFENesin DM 100/10/5 ML 5 ML SYRUP PO (06:30)
[2023-02-25] MEDS: lamoTRIgine 100 MG TABLET PO ×2 (09:08→21:07)
[2023-02-25] MEDS: Divalproex Sodium Sprinkles 125 MG CAP.DR.SPR 500 MG PO ×2 (09:08→21:07)
[2023-02-25] MEDS: OLANZapine 2.5 MG TABLET PO ×2 (09:08→15:34)
[2023-02-25] MEDS: polyethylene glycoL 3350 17 GM POWD.PACK PO (09:08)
[2023-02-25] MEDS: Tamsulosin HCL 0.4 MG CAPSULE PO (09:09)
[2023-02-25] MEDS: amLODIPine Besylate 5 MG TABLET PO (09:09)
[2023-02-25] MEDS: Venlafaxine HCl ER 75 MG CAP.ER.24H PO (09:09)
[2023-02-25] MEDS: ALPRAZolam 0.25 MG TABLET PO (09:14)
[2023-02-25 09:23] VITALS: BP 152/74; PULSE 68; RESP 16; TEMP 36.2; O2SAT 94
[2023-02-25] MEDS: Clotrimazole 1 % Cream 15 GM TUBE 1 APPL TOPICAL ×2 (13:33→21:11)
--- NOTE | 2023-02-25 15:52 | P.PNPSI_ITS ---
Subjective Subjective Date of Service: 02/25/23 Reason For Visit: Depression hopelessness irritability Subjective Notes: Conditional Voluntary Interim History: The patient was seen on the [facility] patient having some anxiety regarding discharge issues of whether his apartment will be ready. Depakote does appear to be helpful along with Zyprexa nortriptyline. Medication Compliance: Yes Attending Groups: Yes Mental Status Exam Mental Status Exam Patient Appearance: Well Grooomed and Appropriate Patient Orientation: Person and Situation Level of Consciousness: Awake and Appropriate Patient Behavior: Guarded and Passive Mood Description: Calm Affect Description: Constricted Ability to Follow Directions: Good Speech Pattern: Clear Hallucinations: None Delusions: Not Present Thought Process: Linear Thought Content: positive for Circumstantial Judgement: Fair Diagnostics Vital Signs (24Hr): Vital Signs - 24 hr 02/24/23 18:00 02/25/23 09:23 Temperature 97.6 F 97.1 F Pulse Rate 106 H 68 Respiratory Rate 16 16 Blood Pressure 118/54 L 152/74 H Pulse Oximetry 92 94 Oxygen Delivery Method Room Air Room Air BMI result Body Mass Index 30.8 Labs 02/12/23 05:27 02/12/23 05:27 Imaging Radiology Impressions: ITS Impressions Chest X-Ray 10/20/22 15:45 IMPRESSION: 1. Low lung volumes with bibasilar linear disc atelectasis versus scarring. 2. No airspace consolidation or effusion. Head CT 11/08/22 12:29 IMPRESSION: No acute intracranial hemorrhage or territorial infarction. Stable chronic postoperative changes with gliosis and encephalomalacia in the right frontal and right temporal lobes. Ex vacuo dilatation of the ventricles and diffuse parenchymal volume loss. Right-sided craniotomy changes. Chest X-Ray 11/12/22 10:32 IMPRESSION: Hypoexpanded lungs with bibasilar platelike atelectasis. Brain MRI 11/12/22 13:15 IMPRESSION: 1. No demonstrated acute intracranial abnormalities. 2. Chronic encephalomalacia of the right temporal, right frontal, and left occipital lobes. Small regions of chronic encephalomalacia in the parasagittal aspects of the bilateral parietal lobes. Moderate underlying microangiopathy and generalized cerebral volume loss. Chest X-Ray 11/14/22 15:52 IMPRESSION: Low lung volumes, bibasilar subsegmental atelectasis and slight elevation of the right hemidiaphragm similar to previous exam. Modified Barium Swallow 11/21/22 15:11 IMPRESSION: Laryngeal penetration on several occasions but no laryngeal aspiration. Mild retention of solid food in the valleculae which cleared with subsequent oral administration of water or thin barium. Correlate with speech therapy results. Orbit CT 01/23/23 14:05 IMPRESSION: - No definite significant intraorbital soft tissue findings to assessment is limited on a noncontrast CT of the orbits. No retrobulbar mass lesions and no cellulitic changes appreciated. - There are large fluid levels within the left maxillary sinus and within the right frontal sinus the can be correlated for clinical signs of acute sinusitis. - A peripherally ossified structure extending from the dorsal margin of the right nasolacrimal duct into the right maxillary sinus is stable when compared to examinations dated back to 08/24/2008 favoring a benign etiology. Cervical Spine CT 02/14/23 22:15 IMPRESSION: 1. No acute intracranial abnormality. Stable postsurgical changes with right frontotemporal encephalomalacia, global volume loss, and extraocular dilatation of the right lateral ventricle. 2. No cervical spine fracture or traumatic malalignment. Head CT 02/14/23 22:15 IMPRESSION: 1. No acute intracranial abnormality. Stable postsurgical changes with right frontotemporal encephalomalacia, global volume loss, and extraocular dilatation of the right lateral ventricle. 2. No cervical spine fracture or traumatic malalignment. Hip/Pelvis X-Ray 02/14/23 22:25 IMPRESSION: Moderate degenerative changes of the right hip with loss of superolateral joint space. Similar chronic posttraumatic deformity of the right femoral neck with chronic foreshortening. Status post left total hip arthroplasty in unchanged alignment however the lack of a crosstable lateral view limits assessment for dislocation. No acute fracture or dislocation appreciated on the available views. Foot X-Ray 02/22/23 13:50 IMPRESSION: * Postsurgical changes of arthrodesis first metatarsophalangeal joint. * There is developed large osteophyte from the head of the first metatarsal protruding laterally abutting the head of the second metatarsal. This might be the source of patient's pain. * Underlying degenerative osteoarthritis. Foot X-Ray 02/23/23 14:11 IMPRESSION: Mild degenerative changes MTP, PIP and DIP joints. No visible acute fracture or dislocation seen. Medications Medications Current Medications Acetaminophen (Acetaminophen 325 Mg Tablet) 975 mg PO Q6H PRN PRN Reason: Headache/Pain Mild Scale (1-3) Last Admin: 02/25/23 06:30 Dose: 975 mg Albuterol Sulfate (Albuterol Sulfate 90 Mcg 8 Gm Inhaler) 2 puff INHALE Q6H PRN PRN Reason: Wheezing Alprazolam (Alprazolam 0.5 Mg Tablet) 0.5 mg PO BEDTIME TAZ Last Admin: 02/24/23 21:00 Dose: 0.5 mg Alprazolam (Alprazolam 0.25 Mg Tablet) 0.25 mg PO Q4H PRN PRN Reason: Anxiety Last Admin: 02/25/23 09:14 Dose: 0.25 mg Amlodipine Besylate (Amlodipine Besylate 5 Mg Tablet) 5 mg PO DAILY [facility]; Protocol Last Admin: 02/25/23 09:09 Dose: 5 mg Bisacodyl (Bisacodyl 10 Mg Supp.Rect) 10 mg MT DAILY PRN PRN Reason: Constipation Clotrimazole (Clotrimazole 1 % Cream 15 Gm Tube) 1 appl TOPICAL BID TAZ; Protocol Last Admin: 02/25/23 13:33 Dose: 1 appl Divalproex Sodium (Divalproex Sodium Sprinkles 125 Mg ) 500 mg PO BID [facility] Last Admin: 02/25/23 09:08 Dose: 500 mg Guaifenesin/Dextromethorphan (Guaifenesin Dm 100/10/5 Ml 5 Ml Syrup) 5 ml PO Q4H PRN PRN Reason: cough Last Admin: 02/25/23 06:30 Dose: 5 ml Hydrocortisone (Hydrocortisone 1 % Cream 28.35 Gm Tube) 1 appl TOPICAL BID PRN; Protocol PRN Reason: itchy feet Last Admin: 02/24/23 09:13 Dose: 1 appl Hydroxyzine HCl (Hydroxyzine Hcl 50 Mg Tablet) 50 mg PO Q4H PRN PRN Reason: Anxiety Last Admin: 02/24/23 19:37 Dose: 50 mg Ibuprofen (Ibuprofen 600 Mg Tablet) 600 mg PO Q6H PRN PRN Reason: Pain, Moderate (Pain Scale 4-6 Last Admin: 02/24/23 19:36 Dose: 600 mg Lamotrigine (Lamotrigine 100 Mg Tablet) 100 mg PO BID [facility] Last Admin: 02/25/23 09:08 Dose: 100 mg Latanoprost (Latanoprost 0.005 % Ophth No 2.5 Ml Drops) 1 drop EYE-BOTH BEDTIME [facility] Last Admin: 02/24/23 21:05 Dose: 1 drop Lidocaine (Lidocaine 5 % Ointment 35 Gm) 1 appl TOPICAL Q6H PRN; Protocol PRN Reason: Hemorrhoid pain Last Admin: 02/22/23 20:44 Dose: 1 appl Lidocaine (Lidocaine 5 % Ointment 35 Gm) 1 appl TOPICAL Q6H PRN; Protocol PRN Reason: pain r foot Magnesium Hydroxide (Milk Of Magnesia 30 Ml Oral.Susp) 30 ml PO BID PRN PRN Reason: constipation, stomach/GI upset Multi-Ingred Cream/Lotion/Oil/Oint (Mineral Oil/Petrolatum,White 106 Gm Tube) 1 appl TOPICAL BID PRN; Protocol PRN Reason: dry skin Nortriptyline HCl (Nortriptyline Hcl 25 Mg Capsule) 50 mg PO BEDTIME [facility] Last Admin: 02/24/23 20:59 Dose: 50 mg Nystatin (Nystatin Powder 15 Gm Bottle) 1 appl TOPICAL BID TAZ; Protocol Last Admin: 02/25/23 14:22 Dose: Not Given Olanzapine (Olanzapine 2.5 Mg Tablet) 2.5 mg PO DAILY [facility] Last Admin: 02/25/23 09:08 Dose: 2.5 mg Olanzapine (Olanzapine 2.5 Mg Tablet) 2.5 mg PO Q4H PRN PRN Reason: anxiety/restlessness Olanzapine (Olanzapine 2.5 Mg Tablet) 2.5 mg PO DAILY@1500 [facility] Last Admin: 02/25/23 15:34 Dose: 2.5 mg Olanzapine (Olanzapine 5 Mg Tablet) 5 mg PO BEDTIME [facility] Last Admin: 02/24/23 21:01 Dose: 5 mg Polyethylene Glycol (Polyethylene Glycol 3350 17 Gm Powd.Pack) 17 gm PO BID [facility] Last Admin: 02/25/23 09:08 Dose: 17 gm Senna/Docusate Sodium (Sennosides/Docusate Sodium Tablet) 2 tab PO BEDTIME [facility] Last Admin: 02/24/23 22:20 Dose: 2 tab Sodium Biphosphate/Sodium Phosphate (Sodium Phosphate,[place]-Dibasic 133 Ml Enema) 133 ml MT ONCE PRN PRN Reason: Constipation Sodium Chloride (Sodium Chloride 0.65 % Nasal 44 Ml Sprbtl) 1 spray NOSTRIL-B Q1H PRN PRN Reason: Nasal Congestion Last Admin: 02/24/23 21:05 Dose: 1 spray Tamsulosin HCl (Tamsulosin Hcl 0.4 Mg Capsule) 0.4 mg PO DAILY [facility] Last Admin: 02/25/23 09:09 Dose: 0.4 mg Trazodone HCl (Trazodone Hcl 100 Mg Tablet) 200 mg PO BEDTIME [facility] Last Admin: 02/24/23 21:00 Dose: 200 mg Venlafaxine HCl (Venlafaxine Hcl Er 75 Mg Cap.Er.24h) 75 mg PO DAILY [facility] Last Admin: 02/25/23 09:09 Dose: 75 mg Allergies Allergies Allergy/AdvReac Type Severity Reaction Status Date / Time fentanyl [FENTANYL] Allergy Intermediate unknown Verified 04/08/22 07:00 Assessment & Plan Assessment & Plan (1) Major depressive disorder, recurrent severe without psychotic features: Status: Acute Code(s): F33.2 - Major depressive disorder, recurrent severe without psychotic features (2) Cognitive and neurobehavioral dysfunction following brain injury: Status: Acute Code(s): G31.89 - Other specified degenerative diseases of nervous system; F09 - Unspecified mental disorder due to known physiological condition; S06.9X9S - Unspecified intracranial injury with loss of consciousness of unspecified duration, sequela Plan The patient is a middle-age male with a past history of major depressive disorder, alcohol use disorder, TBI admitted for suicidality. He had been in the facility sterile times in the last year. Plan 1. Continue with same treatment. 2. Waiting for placement 02/16/22 Pt has been more irritable dysphoric inc depakote ck level ck ammonia needs reassurance support which he finds helpful 02/17/22 pt has been inc depakote 500 bid has had lability periods of despair 02/18/23 pt urged to use techniques to dec reactivity depakote 500 bid 02/19/2023 Continue Depakote check level in a few days 02/20/2023 Patient required alprazolam olanzapine check Depakote level 02/21: no changes 02/22/2023: Hydrocortisone cream ordered for feet and right foot x-ray ordered. 02/23/2023 02/25/23 Continue alprazolam Depakote olanzapine med consult for lower ext 02/24 continue same treatment 02/25/23 pt mmod periodically labile needs ongoing reassurance continue plan of care Reason for contiued inpatient stay Substantial Risk for: inability to function, rapid decompensation and med/psych decompensation Time Spent With Patient Time: Total time managing care of this patient today ____ minutes.
[2023-02-25 20:22] VITALS: BP 150/72; PULSE 69; RESP 18; TEMP 36.1; O2SAT 99
[2023-02-25] MEDS: Nystatin Powder 15 GM BOTTLE 1 APPL TOPICAL (21:03)
[2023-02-25] MEDS: Latanoprost 0.005 % Ophth Sol 2.5 ML DROPS 1 DROP EYE-BOTH (21:03)
[2023-02-25] MEDS: traZODone HCL 100 MG TABLET 200 MG PO (21:06)
[2023-02-25] MEDS: Nortriptyline HCl 25 MG CAPSULE 50 MG PO (21:06)
[2023-02-25] MEDS: ALPRAZolam 0.5 MG TABLET PO (21:08)
[2023-02-25] MEDS: Sennosides/Docusate Sodium TABLET 2 TAB PO (21:08)
[2023-02-25] MEDS: OLANZapine 5 MG TABLET PO (21:09)
[2023-02-25] MEDS: Sodium Chloride 0.65 % Nasal 44 ML SPRBTL 1 SPRAY NOSTRIL-B (23:58)
[2023-02-26] MEDS: guaiFENesin DM 100/10/5 ML 5 ML SYRUP PO ×2 (04:29→08:37)
[2023-02-26 06:00] VITALS: BP 147/75; PULSE 74; RESP 18; TEMP 36.3; O2SAT 94
[2023-02-26] MEDS: polyethylene glycoL 3350 17 GM POWD.PACK PO (08:27)
[2023-02-26] MEDS: lamoTRIgine 100 MG TABLET PO ×2 (08:28→21:21)
[2023-02-26] MEDS: OLANZapine 2.5 MG TABLET PO ×2 (08:28→15:45)
[2023-02-26] MEDS: amLODIPine Besylate 5 MG TABLET PO (08:28)
[2023-02-26] MEDS: Tamsulosin HCL 0.4 MG CAPSULE PO (08:29)
[2023-02-26] MEDS: Divalproex Sodium Sprinkles 125 MG CAP.DR.SPR 500 MG PO ×2 (08:29→21:15)
[2023-02-26] MEDS: Venlafaxine HCl ER 75 MG CAP.ER.24H PO (08:29)
[2023-02-26] MEDS: Ibuprofen 600 MG TABLET PO ×2 (08:36→21:10)
--- NOTE | 2023-02-26 09:36 | HO.PSYCHPN ---
Subjective Subjective Date of Service: 02/26/23 Reason For Visit: Depression hopelessness irritability Subjective Notes: Conditional Voluntary Interim History: Pt sleeping through most of the morning when this technical document writer attempted to meet with him. However, it was felt it was more therapeutic to let him rest than wake him up at this time. Per nursing, pt slept most of the night. No behavioral concerns. Pt taking medications as prescribed. Medication Compliance: Yes Diagnostics Vital Signs (24Hr): Vital Signs - 24 hr 02/25/23 20:22 02/26/23 06:00 Temperature 97 F 97.4 F Pulse Rate 69 74 Respiratory Rate 18 18 Blood Pressure 150/72 H 147/75 H Pulse Oximetry 99 94 Oxygen Delivery Method Room Air Room Air BMI result Body Mass Index 30.8 Labs 02/12/23 05:27 02/12/23 05:27 Imaging Radiology Impressions: ITS Impressions Chest X-Ray 10/20/22 15:45 IMPRESSION: 1. Low lung volumes with bibasilar linear disc atelectasis versus scarring. 2. No airspace consolidation or effusion. Head CT 11/08/22 12:29 IMPRESSION: No acute intracranial hemorrhage or territorial infarction. Stable chronic postoperative changes with gliosis and encephalomalacia in the right frontal and right temporal lobes. Ex vacuo dilatation of the ventricles and diffuse parenchymal volume loss. Right-sided craniotomy changes. Chest X-Ray 11/12/22 10:32 IMPRESSION: Hypoexpanded lungs with bibasilar platelike atelectasis. Brain MRI 11/12/22 13:15 IMPRESSION: 1. No demonstrated acute intracranial abnormalities. 2. Chronic encephalomalacia of the right temporal, right frontal, and left occipital lobes. Small regions of chronic encephalomalacia in the parasagittal aspects of the bilateral parietal lobes. Moderate underlying microangiopathy and generalized cerebral volume loss. Chest X-Ray 11/14/22 15:52 IMPRESSION: Low lung volumes, bibasilar subsegmental atelectasis and slight elevation of the right hemidiaphragm similar to previous exam. Modified Barium Swallow 11/21/22 15:11 IMPRESSION: Laryngeal penetration on several occasions but no laryngeal aspiration. Mild retention of solid food in the valleculae which cleared with subsequent oral administration of water or thin barium. Correlate with speech therapy results. Orbit CT 01/23/23 14:05 IMPRESSION: - No definite significant intraorbital soft tissue findings to assessment is limited on a noncontrast CT of the orbits. No retrobulbar mass lesions and no cellulitic changes appreciated. - There are large fluid levels within the left maxillary sinus and within the right frontal sinus the can be correlated for clinical signs of acute sinusitis. - A peripherally ossified structure extending from the dorsal margin of the right nasolacrimal duct into the right maxillary sinus is stable when compared to examinations dated back to 08/24/2008 favoring a benign etiology. Cervical Spine CT 02/14/23 22:15 IMPRESSION: 1. No acute intracranial abnormality. Stable postsurgical changes with right frontotemporal encephalomalacia, global volume loss, and extraocular dilatation of the right lateral ventricle. 2. No cervical spine fracture or traumatic malalignment. Head CT 02/14/23 22:15 IMPRESSION: 1. No acute intracranial abnormality. Stable postsurgical changes with right frontotemporal encephalomalacia, global volume loss, and extraocular dilatation of the right lateral ventricle. 2. No cervical spine fracture or traumatic malalignment. Hip/Pelvis X-Ray 02/14/23 22:25 IMPRESSION: Moderate degenerative changes of the right hip with loss of superolateral joint space. Similar chronic posttraumatic deformity of the right femoral neck with chronic foreshortening. Status post left total hip arthroplasty in unchanged alignment however the lack of a crosstable lateral view limits assessment for dislocation. No acute fracture or dislocation appreciated on the available views. Foot X-Ray 02/22/23 13:50 IMPRESSION: * Postsurgical changes of arthrodesis first metatarsophalangeal joint. * There is developed large osteophyte from the head of the first metatarsal protruding laterally abutting the head of the second metatarsal. This might be the source of patient's pain. * Underlying degenerative osteoarthritis. Foot X-Ray 02/23/23 14:11 IMPRESSION: Mild degenerative changes MTP, PIP and DIP joints. No visible acute fracture or dislocation seen. Medications Medications Current Medications Acetaminophen (Acetaminophen 325 Mg Tablet) 975 mg PO Q6H PRN PRN Reason: Headache/Pain Mild Scale (1-3) Last Admin: 02/25/23 21:05 Dose: 975 mg Albuterol Sulfate (Albuterol Sulfate 90 Mcg 8 Gm Inhaler) 2 puff INHALE Q6H PRN PRN Reason: Wheezing Alprazolam (Alprazolam 0.5 Mg Tablet) 0.5 mg PO BEDTIME TAZ Last Admin: 02/25/23 21:08 Dose: 0.5 mg Alprazolam (Alprazolam 0.25 Mg Tablet) 0.25 mg PO Q4H PRN PRN Reason: Anxiety Last Admin: 02/25/23 09:14 Dose: 0.25 mg Amlodipine Besylate (Amlodipine Besylate 5 Mg Tablet) 5 mg PO DAILY [facility]; Protocol Last Admin: 02/26/23 08:28 Dose: 5 mg Bisacodyl (Bisacodyl 10 Mg Supp.Rect) 10 mg [place] DAILY PRN PRN Reason: Constipation Clotrimazole (Clotrimazole 1 % Cream 15 Gm Tube) 1 appl TOPICAL BID [facility]; Protocol Last Admin: 02/25/23 21:11 Dose: 1 appl Divalproex Sodium (Divalproex Sodium Sprinkles 125 Mg ) 500 mg PO BID [facility] Last Admin: 02/26/23 08:29 Dose: 500 mg Guaifenesin/Dextromethorphan (Guaifenesin Dm 100/10/5 Ml 5 Ml Syrup) 5 ml PO Q4H PRN PRN Reason: cough Last Admin: 02/26/23 08:37 Dose: 5 ml Hydrocortisone (Hydrocortisone 1 % Cream 28.35 Gm Tube) 1 appl TOPICAL BID PRN; Protocol PRN Reason: itchy feet Last Admin: 02/24/23 09:13 Dose: 1 appl Hydroxyzine HCl (Hydroxyzine Hcl 50 Mg Tablet) 50 mg PO Q4H PRN PRN Reason: Anxiety Last Admin: 02/24/23 19:37 Dose: 50 mg Ibuprofen (Ibuprofen 600 Mg Tablet) 600 mg PO Q6H PRN PRN Reason: Pain, Moderate (Pain Scale 4-6 Last Admin: 02/26/23 08:36 Dose: 600 mg Lamotrigine (Lamotrigine 100 Mg Tablet) 100 mg PO BID [facility] Last Admin: 02/26/23 08:28 Dose: 100 mg Latanoprost (Latanoprost 0.005 % Ophth No 2.5 Ml Drops) 1 drop EYE-BOTH BEDTIME [facility] Last Admin: 02/25/23 21:03 Dose: 1 drop Lidocaine (Lidocaine 5 % Ointment 35 Gm) 1 appl TOPICAL Q6H PRN; Protocol PRN Reason: Hemorrhoid pain Last Admin: 02/22/23 20:44 Dose: 1 appl Lidocaine (Lidocaine 5 % Ointment 35 Gm) 1 appl TOPICAL Q6H PRN; Protocol PRN Reason: pain r foot Magnesium Hydroxide (Milk Of Magnesia 30 Ml Oral.Susp) 30 ml PO BID PRN PRN Reason: constipation, stomach/GI upset Multi-Ingred Cream/Lotion/Oil/Oint (Mineral Oil/Petrolatum,White 106 Gm Tube) 1 appl TOPICAL BID PRN; Protocol PRN Reason: dry skin Nortriptyline HCl (Nortriptyline Hcl 25 Mg Capsule) 50 mg PO BEDTIME TAZ Last Admin: 02/25/23 21:06 Dose: 50 mg Nystatin (Nystatin Powder 15 Gm Bottle) 1 appl TOPICAL BID [facility]; Protocol Last Admin: 02/26/23 08:45 Dose: Not Given Olanzapine (Olanzapine 2.5 Mg Tablet) 2.5 mg PO DAILY [facility] Last Admin: 02/26/23 08:28 Dose: 2.5 mg Olanzapine (Olanzapine 2.5 Mg Tablet) 2.5 mg PO Q4H PRN PRN Reason: anxiety/restlessness Olanzapine (Olanzapine 2.5 Mg Tablet) 2.5 mg PO DAILY@1500 [facility] Last Admin: 02/25/23 15:34 Dose: 2.5 mg Olanzapine (Olanzapine 5 Mg Tablet) 5 mg PO BEDTIME TAZ Last Admin: 02/25/23 21:09 Dose: 5 mg Polyethylene Glycol (Polyethylene Glycol 3350 17 Gm Powd.Pack) 17 gm PO BID [facility] Last Admin: 02/26/23 08:27 Dose: 17 gm Senna/Docusate Sodium (Sennosides/Docusate Sodium Tablet) 2 tab PO BEDTIME TAZ Last Admin: 02/25/23 21:08 Dose: 2 tab Sodium Biphosphate/Sodium Phosphate (Sodium Phosphate,[place]-Dibasic 133 Ml Enema) 133 ml [place] ONCE PRN PRN Reason: Constipation Sodium Chloride (Sodium Chloride 0.65 % Nasal 44 Ml Sprbtl) 1 spray NOSTRIL-B Q1H PRN PRN Reason: Nasal Congestion Last Admin: 02/25/23 23:58 Dose: 1 spray Tamsulosin HCl (Tamsulosin Hcl 0.4 Mg Capsule) 0.4 mg PO DAILY [facility] Last Admin: 02/26/23 08:29 Dose: 0.4 mg Trazodone HCl (Trazodone Hcl 100 Mg Tablet) 200 mg PO BEDTIME TAZ Last Admin: 02/25/23 21:06 Dose: 200 mg Venlafaxine HCl (Venlafaxine Hcl Er 75 Mg Cap.Er.24h) 75 mg PO DAILY TAZ Last Admin: 02/26/23 08:29 Dose: 75 mg Allergies Allergies Allergy/AdvReac Type Severity Reaction Status Date / Time fentanyl [FENTANYL] Allergy Intermediate unknown Verified 04/08/22 07:00 Assessment & Plan Assessment & Plan (1) Major depressive disorder, recurrent severe without psychotic features: Status: Acute Code(s): F33.2 - Major depressive disorder, recurrent severe without psychotic features (2) Cognitive and neurobehavioral dysfunction following brain injury: Status: Acute Code(s): G31.89 - Other specified degenerative diseases of nervous system; F09 - Unspecified mental disorder due to known physiological condition; S06.9X9S - Unspecified intracranial injury with loss of consciousness of unspecified duration, sequela Plan The patient is a middle-age male with a past history of major depressive disorder, alcohol use disorder, TBI admitted for suicidality. He had been in the facility sterile times in the last year. Plan 1. Continue with same treatment. 2. Waiting for placement 02/16/22 Pt has been more irritable dysphoric inc depakote ck level ck ammonia needs reassurance support which he finds helpful 02/17/22 pt has been inc depakote 500 bid has had lability periods of despair 02/18/23 pt urged to use techniques to dec reactivity depakote 500 bid 02/19/2023 Continue Depakote check level in a few days 02/20/2023 Patient required alprazolam olanzapine check Depakote level 02/21: no changes 02/22/2023: Hydrocortisone cream ordered for feet and right foot x-ray ordered. 02/23/2023 02/25/23 Continue alprazolam Depakote olanzapine med consult for lower ext 02/24 continue same treatment 02/25/23 pt mmod periodically labile needs ongoing reassurance continue plan of care 02/26 continue tx. Reason for contiued inpatient stay Substantial Risk for: harm to self Time Spent With Patient Time: Total time managing care of this patient today ____ minutes.
[2023-02-26] MEDS: Clotrimazole 1 % Cream 15 GM TUBE 1 APPL TOPICAL ×2 (09:48→21:14)
[2023-02-26 18:00] VITALS: BP 146/68; PULSE 70; RESP 18; TEMP 36.4; O2SAT 98
[2023-02-26] MEDS: traZODone HCL 100 MG TABLET 200 MG PO (21:10)
[2023-02-26] MEDS: OLANZapine 5 MG TABLET PO (21:12)
[2023-02-26] MEDS: Nortriptyline HCl 25 MG CAPSULE 50 MG PO (21:13)
[2023-02-26] MEDS: Sodium Chloride 0.65 % Nasal 44 ML SPRBTL 1 SPRAY NOSTRIL-B (21:14)
[2023-02-26] MEDS: Latanoprost 0.005 % Ophth Sol 2.5 ML DROPS 1 DROP EYE-BOTH (21:14)
[2023-02-26] MEDS: Sennosides/Docusate Sodium TABLET 2 TAB PO (21:16)
[2023-02-26] MEDS: Nystatin Powder 15 GM BOTTLE 1 APPL TOPICAL (21:23)
[2023-02-27 06:00] VITALS: BP 144/64; PULSE 72; TEMP 36.7; O2SAT 98
[2023-02-27] MEDS: Venlafaxine HCl ER 75 MG CAP.ER.24H PO (09:44)
[2023-02-27] MEDS: amLODIPine Besylate 5 MG TABLET PO (09:44)
[2023-02-27] MEDS: lamoTRIgine 100 MG TABLET PO ×2 (09:44→22:16)
[2023-02-27] MEDS: Divalproex Sodium Sprinkles 125 MG CAP.DR.SPR 500 MG PO ×2 (09:44→21:19)
[2023-02-27] MEDS: OLANZapine 2.5 MG TABLET PO ×2 (09:44→15:48)
[2023-02-27] MEDS: Tamsulosin HCL 0.4 MG CAPSULE PO (09:44)
[2023-02-27] MEDS: Clotrimazole 1 % Cream 15 GM TUBE 1 APPL TOPICAL ×2 (09:51→21:36)
[2023-02-27] MEDS: polyethylene glycoL 3350 17 GM POWD.PACK PO (09:51)
[2023-02-27 18:00] VITALS: BP 119/82; PULSE 77; RESP 16; TEMP 36.6; O2SAT 94
[2023-02-27] MEDS: Acetaminophen 325 MG TABLET 975 MG PO (19:43)
[2023-02-27] MEDS: Ibuprofen 600 MG TABLET PO (19:44)
--- NOTE | 2023-02-27 20:28 | P.PNPSI_ITS ---
Subjective Subjective Date of Service: 02/27/23 Reason For Visit: Depression hopelessness irritability Subjective Notes: Conditional Voluntary Interim History: Patient more cooperative less irritability working at trying to maintain emotional control case reviewed treatment team Medication Compliance: Yes Mental Status Exam Mental Status Exam Patient Appearance: Well Grooomed and Appropriate Patient Orientation: Person and Situation Level of Consciousness: Awake and Appropriate Patient Behavior: Passive Mood Description: Calm Affect Description: Constricted Ability to Follow Directions: Good Speech Pattern: Clear Hallucinations: None Delusions: Not Present Thought Process: Linear Thought Content: positive for Circumstantial Depressive Symptoms: Feelings of Worthlessness (At times), Hopelessness (At times) and Difficulty Concentrating Judgement and Insight: Improving judgment and impulse control Diagnostics Vital Signs (24Hr): Vital Signs - 24 hr 02/27/23 06:00 Temperature 98.0 F Pulse Rate 72 Blood Pressure 144/64 H Pulse Oximetry 98 BMI result Body Mass Index 30.8 Labs 02/12/23 05:27 02/12/23 05:27 Imaging Radiology Impressions: ITS Impressions Chest X-Ray 10/20/22 15:45 IMPRESSION: 1. Low lung volumes with bibasilar linear disc atelectasis versus scarring. 2. No airspace consolidation or effusion. Head CT 11/08/22 12:29 IMPRESSION: No acute intracranial hemorrhage or territorial infarction. Stable chronic postoperative changes with gliosis and encephalomalacia in the right frontal and right temporal lobes. Ex vacuo dilatation of the ventricles and diffuse parenchymal volume loss. Right-sided craniotomy changes. Chest X-Ray 11/12/22 10:32 IMPRESSION: Hypoexpanded lungs with bibasilar platelike atelectasis. Brain MRI 11/12/22 13:15 IMPRESSION: 1. No demonstrated acute intracranial abnormalities. 2. Chronic encephalomalacia of the right temporal, right frontal, and left occipital lobes. Small regions of chronic encephalomalacia in the parasagittal aspects of the bilateral parietal lobes. Moderate underlying microangiopathy and generalized cerebral volume loss. Chest X-Ray 11/14/22 15:52 IMPRESSION: Low lung volumes, bibasilar subsegmental atelectasis and slight elevation of the right hemidiaphragm similar to previous exam. Modified Barium Swallow 11/21/22 15:11 IMPRESSION: Laryngeal penetration on several occasions but no laryngeal aspiration. Mild retention of solid food in the valleculae which cleared with subsequent oral administration of water or thin barium. Correlate with speech therapy results. Orbit CT 01/23/23 14:05 IMPRESSION: - No definite significant intraorbital soft tissue findings to assessment is limited on a noncontrast CT of the orbits. No retrobulbar mass lesions and no cellulitic changes appreciated. - There are large fluid levels within the left maxillary sinus and within the right frontal sinus the can be correlated for clinical signs of acute sinusitis. - A peripherally ossified structure extending from the dorsal margin of the right nasolacrimal duct into the right maxillary sinus is stable when compared to examinations dated back to 08/24/2008 favoring a benign etiology. Cervical Spine CT 02/14/23 22:15 IMPRESSION: 1. No acute intracranial abnormality. Stable postsurgical changes with right frontotemporal encephalomalacia, global volume loss, and extraocular dilatation of the right lateral ventricle. 2. No cervical spine fracture or traumatic malalignment. Head CT 02/14/23 22:15 IMPRESSION: 1. No acute intracranial abnormality. Stable postsurgical changes with right frontotemporal encephalomalacia, global volume loss, and extraocular dilatation of the right lateral ventricle. 2. No cervical spine fracture or traumatic malalignment. Hip/Pelvis X-Ray 02/14/23 22:25 IMPRESSION: Moderate degenerative changes of the right hip with loss of superolateral joint space. Similar chronic posttraumatic deformity of the right femoral neck with chronic foreshortening. Status post left total hip arthroplasty in unchanged alignment however the lack of a crosstable lateral view limits assessment for dislocation. No acute fracture or dislocation appreciated on the available views. Foot X-Ray 02/22/23 13:50 IMPRESSION: * Postsurgical changes of arthrodesis first metatarsophalangeal joint. * There is developed large osteophyte from the head of the first metatarsal protruding laterally abutting the head of the second metatarsal. This might be the source of patient's pain. * Underlying degenerative osteoarthritis. Foot X-Ray 02/23/23 14:11 IMPRESSION: Mild degenerative changes MTP, PIP and DIP joints. No visible acute fracture or dislocation seen. Medications Medications Current Medications Acetaminophen (Acetaminophen 325 Mg Tablet) 975 mg PO Q6H PRN PRN Reason: Headache/Pain Mild Scale (1-3) Last Admin: 02/27/23 19:43 Dose: 975 mg Albuterol Sulfate (Albuterol Sulfate 90 Mcg 8 Gm Inhaler) 2 puff INHALE Q6H PRN PRN Reason: Wheezing Amlodipine Besylate (Amlodipine Besylate 5 Mg Tablet) 5 mg PO DAILY [facility] 234 BEDS AT THE [facility]; Protocol Last Admin: 02/27/23 09:44 Dose: 5 mg Bisacodyl (Bisacodyl 10 Mg Supp.Rect) 10 mg [place] DAILY PRN PRN Reason: Constipation Clotrimazole (Clotrimazole 1 % Cream 15 Gm Tube) 1 appl TOPICAL BID [facility]S [facility] 234 BEDS AT THE [facility]; Protocol Last Admin: 02/27/23 09:51 Dose: 1 appl Divalproex Sodium (Divalproex Sodium Sprinkles 125 Mg ) 500 mg PO BID [facility]S [facility]CLUDE 234 BEDS AT THE [facility] Last Admin: 02/27/23 09:44 Dose: 500 mg Guaifenesin/Dextromethorphan (Guaifenesin Dm 100/10/5 Ml 5 Ml Syrup) 5 ml PO Q4H PRN PRN Reason: cough Last Admin: 02/26/23 08:37 Dose: 5 ml Hydrocortisone (Hydrocortisone 1 % Cream 28.35 Gm Tube) 1 appl TOPICAL BID PRN; Protocol PRN Reason: itchy feet Last Admin: 02/24/23 09:13 Dose: 1 appl Hydroxyzine HCl (Hydroxyzine Hcl 50 Mg Tablet) 50 mg PO Q4H PRN PRN Reason: Anxiety Last Admin: 02/24/23 19:37 Dose: 50 mg Ibuprofen (Ibuprofen 600 Mg Tablet) 600 mg PO Q6H PRN PRN Reason: Pain, Moderate (Pain Scale 4-6 Last Admin: 02/27/23 19:44 Dose: 600 mg Lamotrigine (Lamotrigine 100 Mg Tablet) 100 mg PO BID [facility]S [facility]CLUDE 234 BEDS AT THE [facility] Last Admin: 02/27/23 09:44 Dose: 100 mg Latanoprost (Latanoprost 0.005 % Ophth No 2.5 Ml Drops) 1 drop EYE-BOTH BEDTIME COUNTS INCLUDE 234 BEDS AT THE [facility] Last Admin: 02/26/23 21:14 Dose: 1 drop Lidocaine (Lidocaine 5 % Ointment 35 Gm) 1 appl TOPICAL Q6H PRN; Protocol PRN Reason: Hemorrhoid pain Last Admin: 02/22/23 20:44 Dose: 1 appl Lidocaine (Lidocaine 5 % Ointment 35 Gm) 1 appl TOPICAL Q6H PRN; Protocol PRN Reason: pain r foot Magnesium Hydroxide (Milk Of Magnesia 30 Ml Oral.Susp) 30 ml PO BID PRN PRN Reason: constipation, stomach/GI upset Multi-Ingred Cream/Lotion/Oil/Oint (Mineral Oil/Petrolatum,White 106 Gm Tube) 1 appl TOPICAL BID PRN; Protocol PRN Reason: dry skin Nortriptyline HCl (Nortriptyline Hcl 25 Mg Capsule) 50 mg PO BEDTIME COUNTS [facility]CLUDE 234 BEDS AT THE [facility] Last Admin: 02/26/23 21:13 Dose: 50 mg Nystatin (Nystatin Powder 15 Gm Bottle) 1 appl TOPICAL BID [facility]; Protocol Last Admin: 02/27/23 09:51 Dose: Not Given Olanzapine (Olanzapine 2.5 Mg Tablet) 2.5 mg PO DAILY [facility]S [facility]CLUDE 234 BEDS AT THE [facility] Last Admin: 02/27/23 09:44 Dose: 2.5 mg Olanzapine (Olanzapine 2.5 Mg Tablet) 2.5 mg PO Q4H PRN PRN Reason: anxiety/restlessness Olanzapine (Olanzapine 2.5 Mg Tablet) 2.5 mg PO DAILY@1500 [facility]S [facility]CLUDE 234 BEDS AT THE [facility] Last Admin: 02/27/23 15:48 Dose: 2.5 mg Olanzapine (Olanzapine 5 Mg Tablet) 5 mg PO BEDTIME COUNTS INCLUDE 234 BEDS AT THE [facility] Last Admin: 02/26/23 21:12 Dose: 5 mg Polyethylene Glycol (Polyethylene Glycol 3350 17 Gm Powd.Pack) 17 gm PO BID [facility]S [facility]CLUDE 234 BEDS AT THE [facility] Last Admin: 02/27/23 09:51 Dose: 17 gm Senna/Docusate Sodium (Sennosides/Docusate Sodium Tablet) 2 tab PO BEDTIME [facility]S [facility]CLUDE 234 BEDS AT THE [facility] Last Admin: 02/26/23 21:16 Dose: 2 tab Sodium Biphosphate/Sodium Phosphate (Sodium Phosphate,[place]-Dibasic 133 Ml Enema) 133 ml [place] ONCE PRN PRN Reason: Constipation Sodium Chloride (Sodium Chloride 0.65 % Nasal 44 Ml Sprbtl) 1 spray NOSTRIL-B Q1H PRN PRN Reason: Nasal Congestion Last Admin: 02/26/23 21:14 Dose: 1 spray Tamsulosin HCl (Tamsulosin Hcl 0.4 Mg Capsule) 0.4 mg PO DAILY COUNTS INCLUDE 234 BEDS AT THE [facility] Last Admin: 02/27/23 09:44 Dose: 0.4 mg Trazodone HCl (Trazodone Hcl 100 Mg Tablet) 200 mg PO BEDTIME COUNTS INCLUDE 234 BEDS AT THE [facility] Last Admin: 02/26/23 21:10 Dose: 200 mg Venlafaxine HCl (Venlafaxine Hcl Er 75 Mg Cap.Er.24h) 75 mg PO DAILY [facility] Last Admin: 02/27/23 09:44 Dose: 75 mg Allergies Allergies Allergy/AdvReac Type Severity Reaction Status Date / Time fentanyl [FENTANYL] Allergy Intermediate unknown Verified 04/08/22 07:00 Assessment & Plan Assessment & Plan (1) Major depressive disorder, recurrent severe without psychotic features: Status: Acute Code(s): F33.2 - Major depressive disorder, recurrent severe without psychotic features (2) Cognitive and neurobehavioral dysfunction following brain injury: Status: Acute Code(s): G31.89 - Other specified degenerative diseases of nervous system; F09 - Unspecified mental disorder due to known physiological condition; S06.9X9S - Unspecified intracranial injury with loss of consciousness of unspecified duration, sequela Plan The patient is a middle-age male with a past history of major depressive disorder, alcohol use disorder, TBI admitted for suicidality. He had been in the facility sterile times in the last year. Plan 1. Continue with same treatment. 2. Waiting for placement 02/16/22 Pt has been more irritable dysphoric inc depakote ck level ck ammonia needs reassurance support which he finds helpful 02/17/22 pt has been inc depakote 500 bid has had lability periods of despair 02/18/23 pt urged to use techniques to dec reactivity depakote 500 bid 02/19/2023 Continue Depakote check level in a few days 02/20/2023 Patient required alprazolam olanzapine check Depakote level 02/21: no changes 02/22/2023: Hydrocortisone cream ordered for feet and right foot x-ray ordered. 02/23/2023 02/25/23 Continue alprazolam Depakote olanzapine med consult for lower ext 02/24 continue same treatment 02/25/23 pt mmod periodically labile needs ongoing reassurance continue plan of care 02/26 continue tx. Patient educated on: medication risk/benefits and therapeutic strategies Informed Consent: understands Reason for continued inpatient stay Substantial Risk for: harm to self, inability to function and rapid decompensation Time Spent With Patient Time: Total time managing care of this patient today ____ minutes.
[2023-02-27] MEDS: OLANZapine 5 MG TABLET PO (21:20)
[2023-02-27] MEDS: traZODone HCL 100 MG TABLET 200 MG PO (21:21)
[2023-02-27] MEDS: Sennosides/Docusate Sodium TABLET 2 TAB PO (21:21)
[2023-02-27] MEDS: Latanoprost 0.005 % Ophth Sol 2.5 ML DROPS 1 DROP EYE-BOTH (21:22)
[2023-02-27] MEDS: Lidocaine 5 % Ointment 35 GM 1 APPL TOPICAL (21:29)
[2023-02-27] MEDS: Nystatin Powder 15 GM BOTTLE 1 APPL TOPICAL (21:35)
[2023-02-27] MEDS: Hydrocortisone 1 % Cream 28.35 GM TUBE 1 APPL TOPICAL (21:36)
[2023-02-27] MEDS: Nortriptyline HCl 25 MG CAPSULE 50 MG PO (22:15)
[2023-02-28] MEDS: Acetaminophen 325 MG TABLET 975 MG PO (05:58)
[2023-02-28] MEDS: Ibuprofen 600 MG TABLET PO (05:59)
[2023-02-28 08:00] VITALS: BP 141/67; PULSE 74; RESP 18; TEMP 35.9; O2SAT 98
[2023-02-28] MEDS: Divalproex Sodium Sprinkles 125 MG CAP.DR.SPR 500 MG PO ×2 (08:34→21:12)
[2023-02-28] MEDS: polyethylene glycoL 3350 17 GM POWD.PACK PO (08:35)
[2023-02-28] MEDS: lamoTRIgine 100 MG TABLET PO ×2 (08:35→21:12)
[2023-02-28] MEDS: amLODIPine Besylate 5 MG TABLET PO (08:35)
[2023-02-28] MEDS: OLANZapine 2.5 MG TABLET PO ×2 (08:35→16:16)
[2023-02-28] MEDS: Venlafaxine HCl ER 75 MG CAP.ER.24H PO (08:35)
[2023-02-28] MEDS: Tamsulosin HCL 0.4 MG CAPSULE PO (08:35)
[2023-02-28 18:00] VITALS: BP 139/65; PULSE 67; RESP 16; TEMP 36.2; O2SAT 95
[2023-02-28] MEDS: Latanoprost 0.005 % Ophth Sol 2.5 ML DROPS 1 DROP EYE-BOTH (21:10)
[2023-02-28] MEDS: traZODone HCL 100 MG TABLET 200 MG PO (21:11)
[2023-02-28] MEDS: Nortriptyline HCl 25 MG CAPSULE 50 MG PO (21:11)
[2023-02-28] MEDS: OLANZapine 5 MG TABLET PO (21:12)
[2023-02-28] MEDS: Sennosides/Docusate Sodium TABLET 2 TAB PO (21:12)
[2023-02-28] MEDS: Clotrimazole 1 % Cream 15 GM TUBE 1 APPL TOPICAL (21:13)
[2023-02-28] MEDS: Hydrocortisone 1 % Cream 28.35 GM TUBE 1 APPL TOPICAL (21:14)
[2023-02-28] MEDS: Nystatin Powder 15 GM BOTTLE 1 APPL TOPICAL (21:14)
[2023-02-28] MEDS: Lidocaine 5 % Ointment 35 GM 1 APPL TOPICAL (21:15)
--- NOTE | 2023-02-28 21:23 | HO.PSYCHPN ---
Subjective Subjective Date of Service: 02/28/23 Reason For Visit: Depression hopelessness irritability Subjective Notes: Conditional Voluntary Interim History: Patient more engaged cooperative less labile Medication Compliance: Yes Mental Status Exam Mental Status Exam Patient Appearance: Well Grooomed and Appropriate Patient Orientation: Person and Situation Level of Consciousness: Awake and Appropriate Patient Behavior: Passive Mood Description: Calm Affect Description: Constricted Ability to Follow Directions: Good Speech Pattern: Clear Hallucinations: None Delusions: Not Present Thought Process: Linear Thought Content: positive for Circumstantial Depressive Symptoms: Feelings of Worthlessness (At times), Hopelessness (At times) and Difficulty Concentrating Judgement and Insight: Improving judgment and impulse control Diagnostics Vital Signs (24Hr): Vital Signs - 24 hr 02/28/23 08:00 02/28/23 18:00 Temperature 96.6 F L 97.1 F Pulse Rate 74 67 Respiratory Rate 18 16 Blood Pressure 141/67 H 139/65 Pulse Oximetry 98 95 Oxygen Delivery Method Room Air Room Air BMI result Body Mass Index 30.8 Labs 02/12/23 05:27 02/12/23 05:27 Imaging Radiology Impressions: ITS Impressions Chest X-Ray 10/20/22 15:45 IMPRESSION: 1. Low lung volumes with bibasilar linear disc atelectasis versus scarring. 2. No airspace consolidation or effusion. Head CT 11/08/22 12:29 IMPRESSION: No acute intracranial hemorrhage or territorial infarction. Stable chronic postoperative changes with gliosis and encephalomalacia in the right frontal and right temporal lobes. Ex vacuo dilatation of the ventricles and diffuse parenchymal volume loss. Right-sided craniotomy changes. Chest X-Ray 11/12/22 10:32 IMPRESSION: Hypoexpanded lungs with bibasilar platelike atelectasis. Brain MRI 11/12/22 13:15 IMPRESSION: 1. No demonstrated acute intracranial abnormalities. 2. Chronic encephalomalacia of the right temporal, right frontal, and left occipital lobes. Small regions of chronic encephalomalacia in the parasagittal aspects of the bilateral parietal lobes. Moderate underlying microangiopathy and generalized cerebral volume loss. Chest X-Ray 11/14/22 15:52 IMPRESSION: Low lung volumes, bibasilar subsegmental atelectasis and slight elevation of the right hemidiaphragm similar to previous exam. Modified Barium Swallow 11/21/22 15:11 IMPRESSION: Laryngeal penetration on several occasions but no laryngeal aspiration. Mild retention of solid food in the valleculae which cleared with subsequent oral administration of water or thin barium. Correlate with speech therapy results. Orbit CT 01/23/23 14:05 IMPRESSION: - No definite significant intraorbital soft tissue findings to assessment is limited on a noncontrast CT of the orbits. No retrobulbar mass lesions and no cellulitic changes appreciated. - There are large fluid levels within the left maxillary sinus and within the right frontal sinus the can be correlated for clinical signs of acute sinusitis. - A peripherally ossified structure extending from the dorsal margin of the right nasolacrimal duct into the right maxillary sinus is stable when compared to examinations dated back to 08/24/2008 favoring a benign etiology. Cervical Spine CT 02/14/23 22:15 IMPRESSION: 1. No acute intracranial abnormality. Stable postsurgical changes with right frontotemporal encephalomalacia, global volume loss, and extraocular dilatation of the right lateral ventricle. 2. No cervical spine fracture or traumatic malalignment. Head CT 02/14/23 22:15 IMPRESSION: 1. No acute intracranial abnormality. Stable postsurgical changes with right frontotemporal encephalomalacia, global volume loss, and extraocular dilatation of the right lateral ventricle. 2. No cervical spine fracture or traumatic malalignment. Hip/Pelvis X-Ray 02/14/23 22:25 IMPRESSION: Moderate degenerative changes of the right hip with loss of superolateral joint space. Similar chronic posttraumatic deformity of the right femoral neck with chronic foreshortening. Status post left total hip arthroplasty in unchanged alignment however the lack of a crosstable lateral view limits assessment for dislocation. No acute fracture or dislocation appreciated on the available views. Foot X-Ray 02/22/23 13:50 IMPRESSION: * Postsurgical changes of arthrodesis first metatarsophalangeal joint. * There is developed large osteophyte from the head of the first metatarsal protruding laterally abutting the head of the second metatarsal. This might be the source of patient's pain. * Underlying degenerative osteoarthritis. Foot X-Ray 02/23/23 14:11 IMPRESSION: Mild degenerative changes MTP, PIP and DIP joints. No visible acute fracture or dislocation seen. Medications Medications Current Medications Acetaminophen (Acetaminophen 325 Mg Tablet) 975 mg PO Q6H PRN PRN Reason: Headache/Pain Mild Scale (1-3) Last Admin: 02/28/23 05:58 Dose: 975 mg Albuterol Sulfate (Albuterol Sulfate 90 Mcg 8 Gm Inhaler) 2 puff INHALE Q6H PRN PRN Reason: Wheezing Amlodipine Besylate (Amlodipine Besylate 5 Mg Tablet) 5 mg PO DAILY COUNTS INCLUDE 234 BEDS AT THE [facility]; Protocol Last Admin: 02/28/23 08:35 Dose: 5 mg Bisacodyl (Bisacodyl 10 Mg Supp.Rect) 10 mg [place] DAILY PRN PRN Reason: Constipation Clotrimazole (Clotrimazole 1 % Cream 15 Gm Tube) 1 appl TOPICAL BID COUNTS INCLUDE 234 BEDS AT THE [facility]; Protocol Last Admin: 02/28/23 21:13 Dose: 1 appl Divalproex Sodium (Divalproex Sodium Sprinkles 125 Mg ) 500 mg PO BID COUNTS INCLUDE 234 BEDS AT THE [facility] Last Admin: 02/28/23 21:12 Dose: 500 mg Guaifenesin/Dextromethorphan (Guaifenesin Dm 100/10/5 Ml 5 Ml Syrup) 5 ml PO Q4H PRN PRN Reason: cough Last Admin: 02/26/23 08:37 Dose: 5 ml Hydrocortisone (Hydrocortisone 1 % Cream 28.35 Gm Tube) 1 appl TOPICAL BID PRN; Protocol PRN Reason: itchy feet Last Admin: 02/28/23 21:14 Dose: 1 appl Hydroxyzine HCl (Hydroxyzine Hcl 50 Mg Tablet) 50 mg PO Q4H PRN PRN Reason: Anxiety Last Admin: 02/24/23 19:37 Dose: 50 mg Ibuprofen (Ibuprofen 600 Mg Tablet) 600 mg PO Q6H PRN PRN Reason: Pain, Moderate (Pain Scale 4-6 Last Admin: 02/28/23 05:59 Dose: 600 mg Lamotrigine (Lamotrigine 100 Mg Tablet) 100 mg PO BID COUNTS INCLUDE 234 BEDS AT THE [facility] Last Admin: 02/28/23 21:12 Dose: 100 mg Latanoprost (Latanoprost 0.005 % Ophth No 2.5 Ml Drops) 1 drop EYE-BOTH BEDTIME COUNTS INCLUDE 234 BEDS AT THE [facility] Last Admin: 02/28/23 21:10 Dose: 1 drop Lidocaine (Lidocaine 5 % Ointment 35 Gm) 1 appl TOPICAL Q6H PRN; Protocol PRN Reason: Hemorrhoid pain Last Admin: 02/28/23 21:15 Dose: 1 appl Lidocaine (Lidocaine 5 % Ointment 35 Gm) 1 appl TOPICAL Q6H PRN; Protocol PRN Reason: pain r foot Magnesium Hydroxide (Milk Of Magnesia 30 Ml Oral.Susp) 30 ml PO BID PRN PRN Reason: constipation, stomach/GI upset Multi-Ingred Cream/Lotion/Oil/Oint (Mineral Oil/Petrolatum,White 106 Gm Tube) 1 appl TOPICAL BID PRN; Protocol PRN Reason: dry skin Nortriptyline HCl (Nortriptyline Hcl 25 Mg Capsule) 50 mg PO BEDTIME COUNTS INCLUDE 234 BEDS AT THE [facility] Last Admin: 02/28/23 21:11 Dose: 50 mg Nystatin (Nystatin Powder 15 Gm Bottle) 1 appl TOPICAL BID [facility]; Protocol Last Admin: 02/28/23 21:14 Dose: 1 appl Olanzapine (Olanzapine 2.5 Mg Tablet) 2.5 mg PO DAILY COUNTS INCLUDE 234 BEDS AT THE [facility] Last Admin: 02/28/23 08:35 Dose: 2.5 mg Olanzapine (Olanzapine 2.5 Mg Tablet) 2.5 mg PO Q4H PRN PRN Reason: anxiety/restlessness Olanzapine (Olanzapine 2.5 Mg Tablet) 2.5 mg PO DAILY@1500 COUNTS INCLUDE 234 BEDS AT THE [facility] Last Admin: 02/28/23 16:16 Dose: 2.5 mg Olanzapine (Olanzapine 5 Mg Tablet) 5 mg PO BEDTIME COUNTS INCLUDE 234 BEDS AT THE [facility] Last Admin: 02/28/23 21:12 Dose: 5 mg Polyethylene Glycol (Polyethylene Glycol 3350 17 Gm Powd.Pack) 17 gm PO BID COUNTS INCLUDE 234 BEDS AT THE [facility] Last Admin: 02/28/23 08:35 Dose: 17 gm Senna/Docusate Sodium (Sennosides/Docusate Sodium Tablet) 2 tab PO BEDTIME COUNTS INCLUDE 234 BEDS AT THE [facility] Last Admin: 02/28/23 21:12 Dose: 2 tab Sodium Biphosphate/Sodium Phosphate (Sodium Phosphate,[place]-Dibasic 133 Ml Enema) 133 ml [place] ONCE PRN PRN Reason: Constipation Sodium Chloride (Sodium Chloride 0.65 % Nasal 44 Ml Sprbtl) 1 spray NOSTRIL-B Q1H PRN PRN Reason: Nasal Congestion Last Admin: 02/26/23 21:14 Dose: 1 spray Tamsulosin HCl (Tamsulosin Hcl 0.4 Mg Capsule) 0.4 mg PO DAILY COUNTS INCLUDE 234 BEDS AT THE [facility] Last Admin: 02/28/23 08:35 Dose: 0.4 mg Trazodone HCl (Trazodone Hcl 100 Mg Tablet) 200 mg PO BEDTIME COUNTS INCLUDE 234 BEDS AT THE [facility] Last Admin: 02/28/23 21:11 Dose: 200 mg Venlafaxine HCl (Venlafaxine Hcl Er 75 Mg Cap.Er.24h) 75 mg PO DAILY COUNTS INCLUDE 234 BEDS AT THE [facility] Last Admin: 02/28/23 08:35 Dose: 75 mg Allergies Allergies Allergy/AdvReac Type Severity Reaction Status Date / Time fentanyl [FENTANYL] Allergy Intermediate unknown Verified 04/08/22 07:00 Assessment & Plan Assessment & Plan (1) Major depressive disorder, recurrent severe without psychotic features: Status: Acute Code(s): F33.2 - Major depressive disorder, recurrent severe without psychotic features (2) Cognitive and neurobehavioral dysfunction following brain injury: Status: Acute Code(s): G31.89 - Other specified degenerative diseases of nervous system; F09 - Unspecified mental disorder due to known physiological condition; S06.9X9S - Unspecified intracranial injury with loss of consciousness of unspecified duration, sequela Plan The patient is a middle-age male with a past history of major depressive disorder, alcohol use disorder, TBI admitted for suicidality. He had been in the facility sterile times in the last year. Plan 1. Continue with same treatment. 2. Waiting for placement 02/16/22 Pt has been more irritable dysphoric inc depakote ck level ck ammonia needs reassurance support which he finds helpful 02/17/22 pt has been inc depakote 500 bid has had lability periods of despair 02/18/23 pt urged to use techniques to dec reactivity depakote 500 bid 02/19/2023 Continue Depakote check level in a few days 02/20/2023 Patient required alprazolam olanzapine check Depakote level 02/21: no changes 02/22/2023: Hydrocortisone cream ordered for feet and right foot x-ray ordered. 02/23/2023 02/25/23 Continue alprazolam Depakote olanzapine med consult for lower ext 02/24 continue same treatment 02/25/23 pt mmod periodically labile needs ongoing reassurance continue plan of care 02/26 continue tx. 02/28/2023 Continue plan of care Reason for continued inpatient stay Substantial Risk for: inability to function and rapid decompensation Time Spent With Patient Time: Total time managing care of this patient today ____ minutes.
--- NOTE | 2023-02-28 21:32 | P.PNPSI_ITS ---
Subjective Subjective Reason For Visit: Depression hopelessness irritability Diagnostics Vital Signs (24Hr): Vital Signs - 24 hr 02/28/23 08:00 02/28/23 18:00 Temperature 96.6 F L 97.1 F Pulse Rate 74 67 Respiratory Rate 18 16 Blood Pressure 141/67 H 139/65 Pulse Oximetry 98 95 Oxygen Delivery Method Room Air Room Air BMI result Body Mass Index 30.8 Labs 02/12/23 05:27 02/12/23 05:27 Imaging Radiology Impressions: ITS Impressions Chest X-Ray 10/20/22 15:45 IMPRESSION: 1. Low lung volumes with bibasilar linear disc atelectasis versus scarring. 2. No airspace consolidation or effusion. Head CT 11/08/22 12:29 IMPRESSION: No acute intracranial hemorrhage or territorial infarction. Stable chronic postoperative changes with gliosis and encephalomalacia in the right frontal and right temporal lobes. Ex vacuo dilatation of the ventricles and diffuse parenchymal volume loss. Right-sided craniotomy changes. Chest X-Ray 11/12/22 10:32 IMPRESSION: Hypoexpanded lungs with bibasilar platelike atelectasis. Brain MRI 11/12/22 13:15 IMPRESSION: 1. No demonstrated acute intracranial abnormalities. 2. Chronic encephalomalacia of the right temporal, right frontal, and left occipital lobes. Small regions of chronic encephalomalacia in the parasagittal aspects of the bilateral parietal lobes. Moderate underlying microangiopathy and generalized cerebral volume loss. Chest X-Ray 11/14/22 15:52 IMPRESSION: Low lung volumes, bibasilar subsegmental atelectasis and slight elevation of the right hemidiaphragm similar to previous exam. Modified Barium Swallow 11/21/22 15:11 IMPRESSION: Laryngeal penetration on several occasions but no laryngeal aspiration. Mild retention of solid food in the valleculae which cleared with subsequent oral administration of water or thin barium. Correlate with speech therapy results. Orbit CT 01/23/23 14:05 IMPRESSION: - No definite significant intraorbital soft tissue findings to assessment is limited on a noncontrast CT of the orbits. No retrobulbar mass lesions and no cellulitic changes appreciated. - There are large fluid levels within the left maxillary sinus and within the right frontal sinus the can be correlated for clinical signs of acute sinusitis. - A peripherally ossified structure extending from the dorsal margin of the right nasolacrimal duct into the right maxillary sinus is stable when compared to examinations dated back to 08/24/2008 favoring a benign etiology. Cervical Spine CT 02/14/23 22:15 IMPRESSION: 1. No acute intracranial abnormality. Stable postsurgical changes with right frontotemporal encephalomalacia, global volume loss, and extraocular dilatation of the right lateral ventricle. 2. No cervical spine fracture or traumatic malalignment. Head CT 02/14/23 22:15 IMPRESSION: 1. No acute intracranial abnormality. Stable postsurgical changes with right frontotemporal encephalomalacia, global volume loss, and extraocular dilatation of the right lateral ventricle. 2. No cervical spine fracture or traumatic malalignment. Hip/Pelvis X-Ray 02/14/23 22:25 IMPRESSION: Moderate degenerative changes of the right hip with loss of superolateral joint space. Similar chronic posttraumatic deformity of the right femoral neck with chronic foreshortening. Status post left total hip arthroplasty in unchanged alignment however the lack of a crosstable lateral view limits assessment for dislocation. No acute fracture or dislocation appreciated on the available views. Foot X-Ray 02/22/23 13:50 IMPRESSION: * Postsurgical changes of arthrodesis first metatarsophalangeal joint. * There is developed large osteophyte from the head of the first metatarsal protruding laterally abutting the head of the second metatarsal. This might be the source of patient's pain. * Underlying degenerative osteoarthritis. Foot X-Ray 02/23/23 14:11 IMPRESSION: Mild degenerative changes MTP, PIP and DIP joints. No visible acute fracture or dislocation seen. Medications Medications Current Medications Acetaminophen (Acetaminophen 325 Mg Tablet) 975 mg PO Q6H PRN PRN Reason: Headache/Pain Mild Scale (1-3) Last Admin: 02/28/23 05:58 Dose: 975 mg Albuterol Sulfate (Albuterol Sulfate 90 Mcg 8 Gm Inhaler) 2 puff INHALE Q6H PRN PRN Reason: Wheezing Amlodipine Besylate (Amlodipine Besylate 5 Mg Tablet) 5 mg PO DAILY [facility]; Protocol Last Admin: 02/28/23 08:35 Dose: 5 mg Bisacodyl (Bisacodyl 10 Mg Supp.Rect) 10 mg [place] DAILY PRN PRN Reason: Constipation Clotrimazole (Clotrimazole 1 % Cream 15 Gm Tube) 1 appl TOPICAL BID [facility]; Protocol Last Admin: 02/28/23 21:13 Dose: 1 appl Divalproex Sodium (Divalproex Sodium Sprinkles 125 Mg ) 500 mg PO BID [facility] Last Admin: 02/28/23 21:12 Dose: 500 mg Guaifenesin/Dextromethorphan (Guaifenesin Dm 100/10/5 Ml 5 Ml Syrup) 5 ml PO Q4H PRN PRN Reason: cough Last Admin: 02/26/23 08:37 Dose: 5 ml Hydrocortisone (Hydrocortisone 1 % Cream 28.35 Gm Tube) 1 appl TOPICAL BID PRN; Protocol PRN Reason: itchy feet Last Admin: 02/28/23 21:14 Dose: 1 appl Hydroxyzine HCl (Hydroxyzine Hcl 50 Mg Tablet) 50 mg PO Q4H PRN PRN Reason: Anxiety Last Admin: 02/24/23 19:37 Dose: 50 mg Ibuprofen (Ibuprofen 600 Mg Tablet) 600 mg PO Q6H PRN PRN Reason: Pain, Moderate (Pain Scale 4-6 Last Admin: 02/28/23 05:59 Dose: 600 mg Lamotrigine (Lamotrigine 100 Mg Tablet) 100 mg PO BID [facility] Last Admin: 02/28/23 21:12 Dose: 100 mg Latanoprost (Latanoprost 0.005 % Ophth No 2.5 Ml Drops) 1 drop EYE-BOTH BEDTIME [facility] Last Admin: 02/28/23 21:10 Dose: 1 drop Lidocaine (Lidocaine 5 % Ointment 35 Gm) 1 appl TOPICAL Q6H PRN; Protocol PRN Reason: Hemorrhoid pain Last Admin: 02/28/23 21:15 Dose: 1 appl Lidocaine (Lidocaine 5 % Ointment 35 Gm) 1 appl TOPICAL Q6H PRN; Protocol PRN Reason: pain r foot Magnesium Hydroxide (Milk Of Magnesia 30 Ml Oral.Susp) 30 ml PO BID PRN PRN Reason: constipation, stomach/GI upset Multi-Ingred Cream/Lotion/Oil/Oint (Mineral Oil/Petrolatum,White 106 Gm Tube) 1 appl TOPICAL BID PRN; Protocol PRN Reason: dry skin Nortriptyline HCl (Nortriptyline Hcl 25 Mg Capsule) 50 mg PO BEDTIME [facility] Last Admin: 02/28/23 21:11 Dose: 50 mg Nystatin (Nystatin Powder 15 Gm Bottle) 1 appl TOPICAL BID [facility]; Protocol Last Admin: 02/28/23 21:14 Dose: 1 appl Olanzapine (Olanzapine 2.5 Mg Tablet) 2.5 mg PO DAILY [facility] Last Admin: 02/28/23 08:35 Dose: 2.5 mg Olanzapine (Olanzapine 2.5 Mg Tablet) 2.5 mg PO Q4H PRN PRN Reason: anxiety/restlessness Olanzapine (Olanzapine 2.5 Mg Tablet) 2.5 mg PO DAILY@1500 [facility] Last Admin: 02/28/23 16:16 Dose: 2.5 mg Olanzapine (Olanzapine 5 Mg Tablet) 5 mg PO BEDTIME [facility] Last Admin: 02/28/23 21:12 Dose: 5 mg Polyethylene Glycol (Polyethylene Glycol 3350 17 Gm Powd.Pack) 17 gm PO BID [facility] Last Admin: 02/28/23 21:29 Dose: Not Given Senna/Docusate Sodium (Sennosides/Docusate Sodium Tablet) 2 tab PO BEDTIME [facility] Last Admin: 02/28/23 21:12 Dose: 2 tab Sodium Biphosphate/Sodium Phosphate (Sodium Phosphate,[place]-Dibasic 133 Ml Enema) 133 ml [place] ONCE PRN PRN Reason: Constipation Sodium Chloride (Sodium Chloride 0.65 % Nasal 44 Ml Sprbtl) 1 spray NOSTRIL-B Q1H PRN PRN Reason: Nasal Congestion Last Admin: 02/26/23 21:14 Dose: 1 spray Tamsulosin HCl (Tamsulosin Hcl 0.4 Mg Capsule) 0.4 mg PO DAILY [facility] Last Admin: 02/28/23 08:35 Dose: 0.4 mg Trazodone HCl (Trazodone Hcl 100 Mg Tablet) 200 mg PO BEDTIME [facility] Last Admin: 02/28/23 21:11 Dose: 200 mg Venlafaxine HCl (Venlafaxine Hcl Er 75 Mg Cap.Er.24h) 75 mg PO DAILY [facility] Last Admin: 02/28/23 08:35 Dose: 75 mg Allergies Allergies Allergy/AdvReac Type Severity Reaction Status Date / Time fentanyl [FENTANYL] Allergy Intermediate unknown Verified 04/08/22 07:00 Assessment & Plan Assessment & Plan (1) Major depressive disorder, recurrent severe without psychotic features: Status: Acute Code(s): F33.2 - Major depressive disorder, recurrent severe without psychotic features (2) Cognitive and neurobehavioral dysfunction following brain injury: Status: Acute Code(s): G31.89 - Other specified degenerative diseases of nervous system; F09 - U nspecified mental disorder due to known physiological condition; S06.9X9S - Unspecified intracranial injury with loss of consciousness of unspecified duration, sequela Plan The patient is a middle-age male with a past history of major depressive disorder, alcohol use disorder, TBI admitted for suicidality. He had been in the facility sterile times in the last year. Plan 1. Continue with same treatment. 2. Waiting for placement 02/16/22 Pt has been more irritable dysphoric inc depakote ck level ck ammonia needs reassurance support which he finds helpful 02/17/22 pt has been inc depakote 500 bid has had lability periods of despair 02/18/23 pt urged to use techniques to dec reactivity depakote 500 bid 02/19/2023 Continue Depakote check level in a few days 02/20/2023 Patient required alprazolam olanzapine check Depakote level 02/21: no changes 02/22/2023: Hydrocortisone cream ordered for feet and right foot x-ray ordered. 02/23/2023 02/25/23 Continue alprazolam Depakote olanzapine med consult for lower ext 02/24 continue same treatment 02/25/23 pt mmod periodically labile needs ongoing reassurance continue plan of care 02/26 continue tx. 02/28/2023 Continue plan of care Time Spent With Patient Time: Total time managing care of this patient today ____ minutes.
[2023-03-01] MEDS: ALPRAZolam 0.25 MG TABLET PO (07:08)
[2023-03-01 08:00] VITALS: BP 144/83; PULSE 76; RESP 16; TEMP 36.3; O2SAT 98
[2023-03-01] MEDS: polyethylene glycoL 3350 17 GM POWD.PACK PO (08:36)
[2023-03-01] MEDS: Divalproex Sodium Sprinkles 125 MG CAP.DR.SPR 500 MG PO ×2 (08:37→20:56)
[2023-03-01] MEDS: Tamsulosin HCL 0.4 MG CAPSULE PO (08:37)
[2023-03-01] MEDS: Venlafaxine HCl ER 75 MG CAP.ER.24H PO (08:37)
[2023-03-01] MEDS: OLANZapine 2.5 MG TABLET PO ×2 (08:37→14:21)
[2023-03-01] MEDS: amLODIPine Besylate 5 MG TABLET PO (08:38)
[2023-03-01] MEDS: lamoTRIgine 100 MG TABLET PO ×2 (08:38→20:54)
[2023-03-01] MEDS: hydrOXYzine HCL 50 MG TABLET PO ×2 (14:19→21:09)
[2023-03-01 19:40] VITALS: BP 127/71; PULSE 80; RESP 18; TEMP 36.1; O2SAT 97
[2023-03-01] MEDS: Latanoprost 0.005 % Ophth Sol 2.5 ML DROPS 1 DROP EYE-BOTH (20:51)
[2023-03-01] MEDS: Clotrimazole 1 % Cream 15 GM TUBE 1 APPL TOPICAL (20:52)
[2023-03-01] MEDS: Sennosides/Docusate Sodium TABLET 2 TAB PO (20:54)
[2023-03-01] MEDS: Hydrocortisone 1 % Cream 28.35 GM TUBE 1 APPL TOPICAL (20:54)
[2023-03-01] MEDS: ALPRAZolam 0.5 MG TABLET PO (20:55)
[2023-03-01] MEDS: traZODone HCL 100 MG TABLET 200 MG PO (20:55)
[2023-03-01] MEDS: Nortriptyline HCl 25 MG CAPSULE 50 MG PO (20:55)
[2023-03-01] MEDS: OLANZapine 5 MG TABLET PO (20:56)
[2023-03-01] MEDS: Nystatin Powder 15 GM BOTTLE 1 APPL TOPICAL (20:58)
--- NOTE | 2023-03-01 22:36 | HO.PSYCHPN ---
Subjective Subjective Date of Service: 03/01/23 Reason For Visit: Depression hopelessness irritability Subjective Notes: Conditional Voluntary Interim History: Patient seen in psychiatric follow-up patient has felt less agitated future oriented Mental Status Exam Mental Status Exam Patient Appearance: Appropriate Patient Orientation: Person and Situation Level of Consciousness: Awake and Appropriate Patient Behavior: Guarded and Passive Mood Description: Withdrawn Affect Description: Constricted Patient Cognition Impaired: Yes Speech Pattern: Clear Hallucinations: None Delusions: Not Present Thought Process: Linear Thought Content: positive for Circumstantial Judgement: Fair Diagnostics Vital Signs (24Hr): Vital Signs - 24 hr 03/01/23 08:00 03/01/23 19:40 Temperature 97.4 F 96.9 F Pulse Rate 76 80 Respiratory Rate 16 18 Blood Pressure 144/83 H 127/71 Pulse Oximetry 98 97 Oxygen Delivery Method Room Air Room Air BMI result Body Mass Index 30.8 Labs 02/12/23 05:27 02/12/23 05:27 Imaging Radiology Impressions: ITS Impressions Chest X-Ray 10/20/22 15:45 IMPRESSION: 1. Low lung volumes with bibasilar linear disc atelectasis versus scarring. 2. No airspace consolidation or effusion. Head CT 11/08/22 12:29 IMPRESSION: No acute intracranial hemorrhage or territorial infarction. Stable chronic postoperative changes with gliosis and encephalomalacia in the right frontal and right temporal lobes. Ex vacuo dilatation of the ventricles and diffuse parenchymal volume loss. Right-sided craniotomy changes. Chest X-Ray 11/12/22 10:32 IMPRESSION: Hypoexpanded lungs with bibasilar platelike atelectasis. Brain MRI 11/12/22 13:15 IMPRESSION: 1. No demonstrated acute intracranial abnormalities. 2. Chronic encephalomalacia of the right temporal, right frontal, and left occipital lobes. Small regions of chronic encephalomalacia in the parasagittal aspects of the bilateral parietal lobes. Moderate underlying microangiopathy and generalized cerebral volume loss. Chest X-Ray 11/14/22 15:52 IMPRESSION: Low lung volumes, bibasilar subsegmental atelectasis and slight elevation of the right hemidiaphragm similar to previous exam. Modified Barium Swallow 11/21/22 15:11 IMPRESSION: Laryngeal penetration on several occasions but no laryngeal aspiration. Mild retention of solid food in the valleculae which cleared with subsequent oral administration of water or thin barium. Correlate with speech therapy results. Orbit CT 01/23/23 14:05 IMPRESSION: - No definite significant intraorbital soft tissue findings to assessment is limited on a noncontrast CT of the orbits. No retrobulbar mass lesions and no cellulitic changes appreciated. - There are large fluid levels within the left maxillary sinus and within the right frontal sinus the can be correlated for clinical signs of acute sinusitis. - A peripherally ossified structure extending from the dorsal margin of the right nasolacrimal duct into the right maxillary sinus is stable when compared to examinations dated back to 08/24/2008 favoring a benign etiology. Cervical Spine CT 02/14/23 22:15 IMPRESSION: 1. No acute intracranial abnormality. Stable postsurgical changes with right frontotemporal encephalomalacia, global volume loss, and extraocular dilatation of the right lateral ventricle. 2. No cervical spine fracture or traumatic malalignment. Head CT 02/14/23 22:15 IMPRESSION: 1. No acute intracranial abnormality. Stable postsurgical changes with right frontotemporal encephalomalacia, global volume loss, and extraocular dilatation of the right lateral ventricle. 2. No cervical spine fracture or traumatic malalignment. Hip/Pelvis X-Ray 02/14/23 22:25 IMPRESSION: Moderate degenerative changes of the right hip with loss of superolateral joint space. Similar chronic posttraumatic deformity of the right femoral neck with chronic foreshortening. Status post left total hip arthroplasty in unchanged alignment however the lack of a crosstable lateral view limits assessment for dislocation. No acute fracture or dislocation appreciated on the available views. Foot X-Ray 02/22/23 13:50 IMPRESSION: * Postsurgical changes of arthrodesis first metatarsophalangeal joint. * There is developed large osteophyte from the head of the first metatarsal protruding laterally abutting the head of the second metatarsal. This might be the source of patient's pain. * Underlying degenerative osteoarthritis. Foot X-Ray 02/23/23 14:11 IMPRESSION: Mild degenerative changes MTP, PIP and DIP joints. No visible acute fracture or dislocation seen. Medications Medications Current Medications Acetaminophen (Acetaminophen 325 Mg Tablet) 975 mg PO Q6H PRN PRN Reason: Headache/Pain Mild Scale (1-3) Last Admin: 02/28/23 05:58 Dose: 975 mg Albuterol Sulfate (Albuterol Sulfate 90 Mcg 8 Gm Inhaler) 2 puff INHALE Q6H PRN PRN Reason: Wheezing Alprazolam (Alprazolam 0.5 Mg Tablet) 0.5 mg PO BEDTIME [facility] Last Admin: 03/01/23 20:55 Dose: 0.5 mg Alprazolam (Alprazolam 0.25 Mg Tablet) 0.25 mg PO TID PRN PRN Reason: anxiety/restlessness Amlodipine Besylate (Amlodipine Besylate 5 Mg Tablet) 5 mg PO DAILY [facility]; Protocol Last Admin: 03/01/23 08:38 Dose: 5 mg Bisacodyl (Bisacodyl 10 Mg Supp.Rect) 10 mg [place] DAILY PRN PRN Reason: Constipation Clotrimazole (Clotrimazole 1 % Cream 15 Gm Tube) 1 appl TOPICAL BID [facility]; Protocol Last Admin: 03/01/23 20:52 Dose: 1 appl Divalproex Sodium (Divalproex Sodium Sprinkles 125 Mg ) 500 mg PO BID [facility] Last Admin: 03/01/23 20:56 Dose: 500 mg Guaifenesin/Dextromethorphan (Guaifenesin Dm 100/10/5 Ml 5 Ml Syrup) 5 ml PO Q4H PRN PRN Reason: cough Last Admin: 02/26/23 08:37 Dose: 5 ml Hydrocortisone (Hydrocortisone 1 % Cream 28.35 Gm Tube) 1 appl TOPICAL BID PRN; Protocol PRN Reason: itchy feet Last Admin: 03/01/23 20:54 Dose: 1 appl Hydroxyzine HCl (Hydroxyzine Hcl 50 Mg Tablet) 50 mg PO Q4H PRN PRN Reason: Anxiety Last Admin: 03/01/23 21:09 Dose: 50 mg Ibuprofen (Ibuprofen 600 Mg Tablet) 600 mg PO Q6H PRN PRN Reason: Pain, Moderate (Pain Scale 4-6 Last Admin: 02/28/23 05:59 Dose: 600 mg Lamotrigine (Lamotrigine 100 Mg Tablet) 100 mg PO BID [facility] Last Admin: 03/01/23 20:54 Dose: 100 mg Latanoprost (Latanoprost 0.005 % Ophth No 2.5 Ml Drops) 1 drop EYE-BOTH BEDTIME [facility] Last Admin: 03/01/23 20:51 Dose: 1 drop Lidocaine (Lidocaine 5 % Ointment 35 Gm) 1 appl TOPICAL Q6H PRN; Protocol PRN Reason: pain r foot Magnesium Hydroxide (Milk Of Magnesia 30 Ml Oral.Susp) 30 ml PO BID PRN PRN Reason: constipation, stomach/GI upset Multi-Ingred Cream/Lotion/Oil/Oint (Mineral Oil/Petrolatum,White 106 Gm Tube) 1 appl TOPICAL BID PRN; Protocol PRN Reason: dry skin Nortriptyline HCl (Nortriptyline Hcl 25 Mg Capsule) 50 mg PO BEDTIME [facility] Last Admin: 03/01/23 20:55 Dose: 50 mg Nystatin (Nystatin Powder 15 Gm Bottle) 1 appl TOPICAL BID [facility]; Protocol Last Admin: 03/01/23 20:58 Dose: 1 appl Olanzapine (Olanzapine 2.5 Mg Tablet) 2.5 mg PO DAILY [facility] Last Admin: 03/01/23 08:37 Dose: 2.5 mg Olanzapine (Olanzapine 2.5 Mg Tablet) 2.5 mg PO Q4H PRN PRN Reason: anxiety/restlessness Olanzapine (Olanzapine 2.5 Mg Tablet) 2.5 mg PO DAILY@1500 [facility] Last Admin: 03/01/23 14:21 Dose: 2.5 mg Olanzapine (Olanzapine 5 Mg Tablet) 5 mg PO BEDTIME [facility] Last Admin: 03/01/23 20:56 Dose: 5 mg Polyethylene Glycol (Polyethylene Glycol 3350 17 Gm Powd.Pack) 17 gm PO BID [facility] Last Admin: 03/01/23 20:53 Dose: Not Given Senna/Docusate Sodium (Sennosides/Docusate Sodium Tablet) 2 tab PO BEDTIME [facility] Last Admin: 03/01/23 20:54 Dose: 2 tab Sodium Biphosphate/Sodium Phosphate (Sodium Phosphate,[place]-Dibasic 133 Ml Enema) 133 ml [place] ONCE PRN PRN Reason: Constipation Sodium Chloride (Sodium Chloride 0.65 % Nasal 44 Ml Sprbtl) 1 spray NOSTRIL-B Q1H PRN PRN Reason: Nasal Congestion Last Admin: 02/26/23 21:14 Dose: 1 spray Tamsulosin HCl (Tamsulosin Hcl 0.4 Mg Capsule) 0.4 mg PO DAILY [facility] Last Admin: 03/01/23 08:37 Dose: 0.4 mg Trazodone HCl (Trazodone Hcl 100 Mg Tablet) 200 mg PO BEDTIME [facility] Last Admin: 03/01/23 20:55 Dose: 200 mg Venlafaxine HCl (Venlafaxine Hcl Er 75 Mg Cap.Er.24h) 75 mg PO DAILY [facility] Last Admin: 03/01/23 08:37 Dose: 75 mg Allergies Allergies Allergy/AdvReac Type Severity Reaction Status Date / Time fentanyl [FENTANYL] Allergy Intermediate unknown Verified 04/08/22 07:00 Assessment & Plan Assessment & Plan (1) Major depressive disorder, recurrent severe without psychotic features: Status: Acute Code(s): F33.2 - Major depressive disorder, recurrent severe without psychotic features (2) Cognitive and neurobehavioral dysfunction following brain injury: Status: Acute Code(s): G31.89 - Other specified degenerative diseases of nervous system; F09 - Unspecified mental disorder due to known physiological condition; S06.9X9S - Unspecified intracranial injury with loss of consciousness of unspecified duration, sequela Plan Continue plan of care no changes indicated at this time continue Depakote low-dose Effexor nortriptyline discharge planning coping strategies Reason for continued inpatient stay Substantial Risk for: inability to function and rapid decompensation Time Spent With Patient Time: Total time managing care of this patient today ____ minutes.
[2023-03-02 06:00] VITALS: BP 151/89; PULSE 81; RESP 18; TEMP 36.3; O2SAT 98
[2023-03-02] MEDS: Divalproex Sodium Sprinkles 125 MG CAP.DR.SPR 500 MG PO ×2 (08:19→20:34)
[2023-03-02] MEDS: Tamsulosin HCL 0.4 MG CAPSULE PO (08:19)
[2023-03-02] MEDS: amLODIPine Besylate 5 MG TABLET PO (08:19)
[2023-03-02] MEDS: polyethylene glycoL 3350 17 GM POWD.PACK PO (08:19)
[2023-03-02] MEDS: OLANZapine 2.5 MG TABLET PO ×2 (08:20→15:14)
[2023-03-02] MEDS: lamoTRIgine 100 MG TABLET PO ×2 (08:20→20:34)
[2023-03-02] MEDS: Venlafaxine HCl ER 75 MG CAP.ER.24H PO (08:20)
[2023-03-02] MEDS: ALPRAZolam 0.25 MG TABLET PO ×2 (08:38→17:07)
--- NOTE | 2023-03-02 09:27 | P.PNPSI_ITS ---
Subjective Subjective Date of Service: 03/02/23 Reason For Visit: Depression hopelessness irritability Subjective Notes: Conditional Voluntary Interim History: The nursing staff reported the patient had been on been could behavior, quiet, compliant. He had 2 bowel movements yesterday and he wants to discuss his bowel regimen. On interview the patient denies new symptoms, he is [facility] Mental Status Exam Mental Status Exam Patient Appearance: Appropriate Patient Orientation: Person and Situation Level of Consciousness: Awake and Appropriate Patient Behavior: Guarded and Passive Mood Description: Withdrawn Affect Description: Constricted Patient Cognition Impaired: Yes Speech Pattern: Clear Hallucinations: None Delusions: Not Present Thought Process: Linear Thought Content: positive for Circumstantial Judgement: Fair Diagnostics Vital Signs (24Hr): Vital Signs - 24 hr 03/01/23 19:40 Temperature 96.9 F Pulse Rate 80 Respiratory Rate 18 Blood Pressure 127/71 Pulse Oximetry 97 Oxygen Delivery Method Room Air BMI result Body Mass Index 30.8 Labs 02/12/23 05:27 02/12/23 05:27 Imaging Radiology Impressions: ITS Impressions Chest X-Ray 10/20/22 15:45 IMPRESSION: 1. Low lung volumes with bibasilar linear disc atelectasis versus scarring. 2. No airspace consolidation or effusion. Head CT 11/08/22 12:29 IMPRESSION: No acute intracranial hemorrhage or territorial infarction. Stable chronic postoperative changes with gliosis and encephalomalacia in the right frontal and right temporal lobes. Ex vacuo dilatation of the ventricles and diffuse parenchymal volume loss. Right-sided craniotomy changes. Chest X-Ray 11/12/22 10:32 IMPRESSION: Hypoexpanded lungs with bibasilar platelike atelectasis. Brain MRI 11/12/22 13:15 IMPRESSION: 1. No demonstrated acute intracranial abnormalities. 2. Chronic encephalomalacia of the right temporal, right frontal, and left occipital lobes. Small regions of chronic encephalomalacia in the parasagittal aspects of the bilateral parietal lobes. Moderate underlying microangiopathy and generalized cerebral volume loss. Chest X-Ray 11/14/22 15:52 IMPRESSION: Low lung volumes, bibasilar subsegmental atelectasis and slight elevation of the right hemidiaphragm similar to previous exam. Modified Barium Swallow 11/21/22 15:11 IMPRESSION: Laryngeal penetration on several occasions but no laryngeal aspiration. Mild retention of solid food in the valleculae which cleared with subsequent oral administration of water or thin barium. Correlate with speech therapy results. Orbit CT 01/23/23 14:05 IMPRESSION: - No definite significant intraorbital soft tissue findings to assessment is limited on a noncontrast CT of the orbits. No retrobulbar mass lesions and no cellulitic changes appreciated. - There are large fluid levels within the left maxillary sinus and within the right frontal sinus the can be correlated for clinical signs of acute sinusitis. - A peripherally ossified structure extending from the dorsal margin of the right nasolacrimal duct into the right maxillary sinus is stable when compared to examinations dated back to 08/24/2008 favoring a benign etiology. Cervical Spine CT 02/14/23 22:15 IMPRESSION: 1. No acute intracranial abnormality. Stable postsurgical changes with right frontotemporal encephalomalacia, global volume loss, and extraocular dilatation of the right lateral ventricle. 2. No cervical spine fracture or traumatic malalignment. Head CT 02/14/23 22:15 IMPRESSION: 1. No acute intracranial abnormality. Stable postsurgical changes with right frontotemporal encephalomalacia, global volume loss, and extraocular dilatation of the right lateral ventricle. 2. No cervical spine fracture or traumatic malalignment. Hip/Pelvis X-Ray 02/14/23 22:25 IMPRESSION: Moderate degenerative changes of the right hip with loss of superolateral joint space. Similar chronic posttraumatic deformity of the right femoral neck with chronic foreshortening. Status post left total hip arthroplasty in unchanged alignment however the lack of a crosstable lateral view limits assessment for dislocation. No acute fracture or dislocation appreciated on the available views. Foot X-Ray 02/22/23 13:50 IMPRESSION: * Postsurgical changes of arthrodesis first metatarsophalangeal joint. * There is developed large osteophyte from the head of the first metatarsal protruding laterally abutting the head of the second metatarsal. This might be the source of patient's pain. * Underlying degenerative osteoarthritis. Foot X-Ray 02/23/23 14:11 IMPRESSION: Mild degenerative changes MTP, PIP and DIP joints. No visible acute fracture or dislocation seen. Medications Medications Current Medications Acetaminophen (Acetaminophen 325 Mg Tablet) 975 mg PO Q6H PRN PRN Reason: Headache/Pain Mild Scale (1-3) Last Admin: 02/28/23 05:58 Dose: 975 mg Albuterol Sulfate (Albuterol Sulfate 90 Mcg 8 Gm Inhaler) 2 puff INHALE Q6H PRN PRN Reason: Wheezing Alprazolam (Alprazolam 0.5 Mg Tablet) 0.5 mg PO BEDTIME [facility] Last Admin: 03/01/23 20:55 Dose: 0.5 mg Alprazolam (Alprazolam 0.25 Mg Tablet) 0.25 mg PO TID PRN PRN Reason: anxiety/restlessness Last Admin: 03/02/23 08:38 Dose: 0.25 mg Amlodipine Besylate (Amlodipine Besylate 5 Mg Tablet) 5 mg PO DAILY [facility]; Protocol Last Admin: 03/02/23 08:19 Dose: 5 mg Bisacodyl (Bisacodyl 10 Mg Supp.Rect) 10 mg [place] DAILY PRN PRN Reason: Constipation Clotrimazole (Clotrimazole 1 % Cream 15 Gm Tube) 1 appl TOPICAL BID [facility]; Protocol Last Admin: 03/01/23 20:52 Dose: 1 appl Divalproex Sodium (Divalproex Sodium Sprinkles 125 Mg ) 500 mg PO BID [facility] Last Admin: 03/02/23 08:19 Dose: 500 mg Guaifenesin/Dextromethorphan (Guaifenesin Dm 100/10/5 Ml 5 Ml Syrup) 5 ml PO Q4H PRN PRN Reason: cough Last Admin: 02/26/23 08:37 Dose: 5 ml Hydrocortisone (Hydrocortisone 1 % Cream 28.35 Gm Tube) 1 appl TOPICAL BID PRN; Protocol PRN Reason: itchy feet Last Admin: 03/01/23 20:54 Dose: 1 appl Hydroxyzine HCl (Hydroxyzine Hcl 50 Mg Tablet) 50 mg PO Q4H PRN PRN Reason: Anxiety Last Admin: 03/01/23 21:09 Dose: 50 mg Ibuprofen (Ibuprofen 600 Mg Tablet) 600 mg PO Q6H PRN PRN Reason: Pain, Moderate (Pain Scale 4-6 Last Admin: 02/28/23 05:59 Dose: 600 mg Lamotrigine (Lamotrigine 100 Mg Tablet) 100 mg PO BID [facility] Last Admin: 03/02/23 08:20 Dose: 100 mg Latanoprost (Latanoprost 0.005 % Ophth No 2.5 Ml Drops) 1 drop EYE-BOTH BEDTIME [facility] Last Admin: 03/01/23 20:51 Dose: 1 drop Lidocaine (Lidocaine 5 % Ointment 35 Gm) 1 appl TOPICAL Q6H PRN; Protocol PRN Reason: pain r foot Magnesium Hydroxide (Milk Of Magnesia 30 Ml Oral.Susp) 30 ml PO BID PRN PRN Reason: constipation, stomach/GI upset Multi-Ingred Cream/Lotion/Oil/Oint (Mineral Oil/Petrolatum,White 106 Gm Tube) 1 appl TOPICAL BID PRN; Protocol PRN Reason: dry skin Nortriptyline HCl (Nortriptyline Hcl 25 Mg Capsule) 50 mg PO BEDTIME [facility] Last Admin: 03/01/23 20:55 Dose: 50 mg Nystatin (Nystatin Powder 15 Gm Bottle) 1 appl TOPICAL BID [facility]; Protocol Last Admin: 03/02/23 08:56 Dose: Not Given Olanzapine (Olanzapine 2.5 Mg Tablet) 2.5 mg PO DAILY [facility] Last Admin: 03/02/23 08:20 Dose: 2.5 mg Olanzapine (Olanzapine 2.5 Mg Tablet) 2.5 mg PO Q4H PRN PRN Reason: anxiety/restlessness Olanzapine (Olanzapine 2.5 Mg Tablet) 2.5 mg PO DAILY@1500 [facility] Last Admin: 03/01/23 14:21 Dose: 2.5 mg Olanzapine (Olanzapine 5 Mg Tablet) 5 mg PO BEDTIME [facility] Last Admin: 03/01/23 20:56 Dose: 5 mg Polyethylene Glycol (Polyethylene Glycol 3350 17 Gm Powd.Pack) 17 gm PO BID [facility] Last Admin: 03/02/23 08:19 Dose: 17 gm Senna/Docusate Sodium (Sennosides/Docusate Sodium Tablet) 2 tab PO BEDTIME [facility] Last Admin: 03/01/23 20:54 Dose: 2 tab Sodium Biphosphate/Sodium Phosphate (Sodium Phosphate,[place]-Dibasic 133 Ml Enema) 133 ml [place] ONCE PRN PRN Reason: Constipation Sodium Chloride (Sodium Chloride 0.65 % Nasal 44 Ml Sprbtl) 1 spray NOSTRIL-B Q1H PRN PRN Reason: Nasal Congestion Last Admin: 02/26/23 21:14 Dose: 1 spray Tamsulosin HCl (Tamsulosin Hcl 0.4 Mg Capsule) 0.4 mg PO DAILY [facility] Last Admin: 03/02/23 08:19 Dose: 0.4 mg Trazodone HCl (Trazodone Hcl 100 Mg Tablet) 200 mg PO BEDTIME [facility] Last Admin: 03/01/23 20:55 Dose: 200 mg Venlafaxine HCl (Venlafaxine Hcl Er 75 Mg Cap.Er.24h) 75 mg PO DAILY [facility] Last Admin: 03/02/23 08:20 Dose: 75 mg Allergies Allergies Allergy/AdvReac Type Severity Reaction Status Date / Time fentanyl [FENTANYL] Allergy Intermediate unknown Verified 04/08/22 07:00 Assessment & Plan Assessment & Plan (1) Major depressive disorder, recurrent severe without psychotic features: Status: Acute Code(s): F33.2 - Major depressive disorder, recurrent severe without psychotic features (2) Cognitive and neurobehavioral dysfunction following brain injury: Status: Acute Code(s): G31.89 - Other specified degenerative diseases of nervous system; F09 - Unspecified mental disorder due to known physiological condition; S06.9X9S - Unspecified intracranial injury with loss of consciousness of unspecified duration, sequela Plan Middle-aged male with a past history of alcohol use disorder, TBI and depression admitted for suicidality. At this moment no new symptoms. Plan 1. Continue with same treatment. 2. Waiting for placement. Reason for continued inpatient stay Substantial Risk for: inability to function, rapid decompensation and med/psych decompensation Time Spent With Patient Time: Total time managing care of this patient today __20__ minutes.
[2023-03-02 18:00] VITALS: BP 120/70; PULSE 74; RESP 20; TEMP 36.1; O2SAT 96
[2023-03-02] MEDS: ALPRAZolam 0.5 MG TABLET PO (20:34)
[2023-03-02] MEDS: Sennosides/Docusate Sodium TABLET 2 TAB PO (20:34)
[2023-03-02] MEDS: traZODone HCL 100 MG TABLET 200 MG PO (20:35)
[2023-03-02] MEDS: Nystatin Powder 15 GM BOTTLE 1 APPL TOPICAL (20:35)
[2023-03-02] MEDS: Clotrimazole 1 % Cream 15 GM TUBE 1 APPL TOPICAL (20:35)
[2023-03-02] MEDS: OLANZapine 5 MG TABLET PO (20:35)
[2023-03-02] MEDS: Nortriptyline HCl 25 MG CAPSULE 50 MG PO (20:35)
[2023-03-02] MEDS: Latanoprost 0.005 % Ophth Sol 2.5 ML DROPS 1 DROP EYE-BOTH (20:36)
[2023-03-03] MEDS: guaiFENesin DM 100/10/5 ML 5 ML SYRUP PO (02:32)
[2023-03-03 06:00] VITALS: BP 144/78; PULSE 77; RESP 18; TEMP 36.8; O2SAT 97
[2023-03-03] MEDS: amLODIPine Besylate 5 MG TABLET PO (09:19)
[2023-03-03] MEDS: Acetaminophen 325 MG TABLET 975 MG PO ×2 (09:19→15:31)
[2023-03-03] MEDS: ALPRAZolam 0.25 MG TABLET PO ×2 (09:19→15:31)
[2023-03-03] MEDS: Divalproex Sodium Sprinkles 125 MG CAP.DR.SPR 500 MG PO ×2 (09:19→21:13)
[2023-03-03] MEDS: Tamsulosin HCL 0.4 MG CAPSULE PO (09:20)
[2023-03-03] MEDS: lamoTRIgine 100 MG TABLET PO ×2 (09:20→21:12)
[2023-03-03] MEDS: OLANZapine 2.5 MG TABLET PO ×2 (09:20→15:31)
[2023-03-03] MEDS: Venlafaxine HCl ER 75 MG CAP.ER.24H PO (09:20)
[2023-03-03] MEDS: polyethylene glycoL 3350 17 GM POWD.PACK PO (09:21)
[2023-03-03] MEDS: hydrOXYzine HCL 50 MG TABLET PO (15:31)
[2023-03-03 18:00] VITALS: BP 128/80; PULSE 70; RESP 16; TEMP 36.6; O2SAT 97
[2023-03-03] MEDS: ALPRAZolam 0.5 MG TABLET PO (21:12)
[2023-03-03] MEDS: Nortriptyline HCl 25 MG CAPSULE 50 MG PO (21:13)
[2023-03-03] MEDS: Sennosides/Docusate Sodium TABLET 2 TAB PO (21:13)
[2023-03-03] MEDS: traZODone HCL 100 MG TABLET 200 MG PO (21:14)
[2023-03-03] MEDS: Latanoprost 0.005 % Ophth Sol 2.5 ML DROPS 1 DROP EYE-BOTH (21:15)
[2023-03-03] MEDS: OLANZapine 5 MG TABLET PO (21:19)
--- NOTE | 2023-03-03 21:20 | HO.PSYCHPN ---
Subjective Subjective Date of Service: 03/03/23 Reason For Visit: Depression hopelessness irritability Subjective Notes: Conditional Voluntary Healthcare Proxy: No Medical Problems Affecting Mental Status: No Interim History: Patient has seemed more lethargic and dysphoric over the past few days Medication Compliance: Yes Mental Status Exam Mental Status Exam Patient Appearance: Appropriate Patient Orientation: Person and Situation Level of Consciousness: Awake, Appropriate and Drowsy Patient Behavior: Guarded and Passive Mood Description: Withdrawn Affect Description: Constricted Patient Cognition Impaired: Yes Speech Pattern: Clear Hallucinations: None Delusions: Not Present Thought Process: Linear Thought Content: positive for Circumstantial Judgement: Fair Diagnostics Vital Signs (24Hr): Vital Signs - 24 hr 03/03/23 06:00 03/03/23 18:00 Temperature 98.3 F 97.8 F Pulse Rate 77 70 Respiratory Rate 18 16 Blood Pressure 144/78 H 128/80 Pulse Oximetry 97 97 Oxygen Delivery Method Room Air BMI result Body Mass Index 30.8 Labs 02/12/23 05:27 02/12/23 05:27 Imaging Radiology Impressions: ITS Impressions Chest X-Ray 10/20/22 15:45 IMPRESSION: 1. Low lung volumes with bibasilar linear disc atelectasis versus scarring. 2. No airspace consolidation or effusion. Head CT 11/08/22 12:29 IMPRESSION: No acute intracranial hemorrhage or territorial infarction. Stable chronic postoperative changes with gliosis and encephalomalacia in the right frontal and right temporal lobes. Ex vacuo dilatation of the ventricles and diffuse parenchymal volume loss. Right-sided craniotomy changes. Chest X-Ray 11/12/22 10:32 IMPRESSION: Hypoexpanded lungs with bibasilar platelike atelectasis. Brain MRI 11/12/22 13:15 IMPRESSION: 1. No demonstrated acute intracranial abnormalities. 2. Chronic encephalomalacia of the right temporal, right frontal, and left occipital lobes. Small regions of chronic encephalomalacia in the parasagittal aspects of the bilateral parietal lobes. Moderate underlying microangiopathy and generalized cerebral volume loss. Chest X-Ray 11/14/22 15:52 IMPRESSION: Low lung volumes, bibasilar subsegmental atelectasis and slight elevation of the right hemidiaphragm similar to previous exam. Modified Barium Swallow 11/21/22 15:11 IMPRESSION: Laryngeal penetration on several occasions but no laryngeal aspiration. Mild retention of solid food in the valleculae which cleared with subsequent oral administration of water or thin barium. Correlate with speech therapy results. Orbit CT 01/23/23 14:05 IMPRESSION: - No definite significant intraorbital soft tissue findings to assessment is limited on a noncontrast CT of the orbits. No retrobulbar mass lesions and no cellulitic changes appreciated. - There are large fluid levels within the left maxillary sinus and within the right frontal sinus the can be correlated for clinical signs of acute sinusitis. - A peripherally ossified structure extending from the dorsal margin of the right nasolacrimal duct into the right maxillary sinus is stable when compared to examinations dated back to 08/24/2008 favoring a benign etiology. Cervical Spine CT 02/14/23 22:15 IMPRESSION: 1. No acute intracranial abnormality. Stable postsurgical changes with right frontotemporal encephalomalacia, global volume loss, and extraocular dilatation of the right lateral ventricle. 2. No cervical spine fracture or traumatic malalignment. Head CT 02/14/23 22:15 IMPRESSION: 1. No acute intracranial abnormality. Stable postsurgical changes with right frontotemporal encephalomalacia, global volume loss, and extraocular dilatation of the right lateral ventricle. 2. No cervical spine fracture or traumatic malalignment. Hip/Pelvis X-Ray 02/14/23 22:25 IMPRESSION: Moderate degenerative changes of the right hip with loss of superolateral joint space. Similar chronic posttraumatic deformity of the right femoral neck with chronic foreshortening. Status post left total hip arthroplasty in unchanged alignment however the lack of a crosstable lateral view limits assessment for dislocation. No acute fracture or dislocation appreciated on the available views. Foot X-Ray 02/22/23 13:50 IMPRESSION: * Postsurgical changes of arthrodesis first metatarsophalangeal joint. * There is developed large osteophyte from the head of the first metatarsal protruding laterally abutting the head of the second metatarsal. This might be the source of patient's pain. * Underlying degenerative osteoarthritis. Foot X-Ray 02/23/23 14:11 IMPRESSION: Mild degenerative changes MTP, PIP and DIP joints. No visible acute fracture or dislocation seen. Medications Medications Current Medications Acetaminophen (Acetaminophen 325 Mg Tablet) 975 mg PO Q6H PRN PRN Reason: Headache/Pain Mild Scale (1-3) Last Admin: 03/03/23 15:31 Dose: 975 mg Albuterol Sulfate (Albuterol Sulfate 90 Mcg 8 Gm Inhaler) 2 puff INHALE Q6H PRN PRN Reason: Wheezing Alprazolam (Alprazolam 0.5 Mg Tablet) 0.5 mg PO BEDTIME TAZ Last Admin: 03/03/23 21:12 Dose: 0.5 mg Alprazolam (Alprazolam 0.25 Mg Tablet) 0.25 mg PO TID PRN PRN Reason: anxiety/restlessness Last Admin: 03/03/23 15:31 Dose: 0.25 mg Amlodipine Besylate (Amlodipine Besylate 5 Mg Tablet) 5 mg PO DAILY [facility]; Protocol Last Admin: 03/03/23 09:19 Dose: 5 mg Bisacodyl (Bisacodyl 10 Mg Supp.Rect) 10 mg [place] DAILY PRN PRN Reason: Constipation Clotrimazole (Clotrimazole 1 % Cream 15 Gm Tube) 1 appl TOPICAL BID [facility]; Protocol Last Admin: 03/03/23 21:15 Dose: Not Given Divalproex Sodium (Divalproex Sodium Sprinkles 125 Mg ) 500 mg PO BID [facility] Last Admin: 03/03/23 21:13 Dose: 500 mg Guaifenesin/Dextromethorphan (Guaifenesin Dm 100/10/5 Ml 5 Ml Syrup) 5 ml PO Q4H PRN PRN Reason: cough Last Admin: 03/03/23 02:32 Dose: 5 ml Hydrocortisone (Hydrocortisone 1 % Cream 28.35 Gm Tube) 1 appl TOPICAL BID PRN; Protocol PRN Reason: itchy feet Last Admin: 03/01/23 20:54 Dose: 1 appl Hydroxyzine HCl (Hydroxyzine Hcl 50 Mg Tablet) 50 mg PO Q4H PRN PRN Reason: Anxiety Last Admin: 03/03/23 15:31 Dose: 50 mg Ibuprofen (Ibuprofen 600 Mg Tablet) 600 mg PO Q6H PRN PRN Reason: Pain, Moderate (Pain Scale 4-6 Last Admin: 02/28/23 05:59 Dose: 600 mg Lamotrigine (Lamotrigine 100 Mg Tablet) 100 mg PO BID [facility] Last Admin: 03/03/23 21:12 Dose: 100 mg Latanoprost (Latanoprost 0.005 % Ophth No 2.5 Ml Drops) 1 drop EYE-BOTH BEDTIME [facility]Z Last Admin: 03/03/23 21:15 Dose: 1 drop Lidocaine (Lidocaine 5 % Ointment 35 Gm) 1 appl TOPICAL Q6H PRN; Protocol PRN Reason: pain r foot Magnesium Hydroxide (Milk Of Magnesia 30 Ml Oral.Susp) 30 ml PO BID PRN PRN Reason: constipation, stomach/GI upset Multi-Ingred Cream/Lotion/Oil/Oint (Mineral Oil/Petrolatum,White 106 Gm Tube) 1 appl TOPICAL BID PRN; Protocol PRN Reason: dry skin Nortriptyline HCl (Nortriptyline Hcl 25 Mg Capsule) 50 mg PO BEDTIME TAZ Last Admin: 03/03/23 21:13 Dose: 50 mg Nystatin (Nystatin Powder 15 Gm Bottle) 1 appl TOPICAL BID [facility]; Protocol Last Admin: 03/03/23 21:16 Dose: Not Given Olanzapine (Olanzapine 2.5 Mg Tablet) 2.5 mg PO Q4H PRN PRN Reason: anxiety/restlessness Olanzapine (Olanzapine 2.5 Mg Tablet) 2.5 mg PO DAILY@1500 [facility] Last Admin: 03/03/23 15:31 Dose: 2.5 mg Olanzapine (Olanzapine 5 Mg Tablet) 5 mg PO BEDTIME TAZ Last Admin: 03/03/23 21:19 Dose: 5 mg Polyethylene Glycol (Polyethylene Glycol 3350 17 Gm Powd.Pack) 17 gm PO BID [facility] Last Admin: 03/03/23 21:12 Dose: Not Given Senna/Docusate Sodium (Sennosides/Docusate Sodium Tablet) 2 tab PO BEDTIME [facility] Last Admin: 03/03/23 21:13 Dose: 2 tab Sodium Biphosphate/Sodium Phosphate (Sodium Phosphate,[place]-Dibasic 133 Ml Enema) 133 ml [place] ONCE PRN PRN Reason: Constipation Sodium Chloride (Sodium Chloride 0.65 % Nasal 44 Ml Sprbtl) 1 spray NOSTRIL-B Q1H PRN PRN Reason: Nasal Congestion Last Admin: 02/26/23 21:14 Dose: 1 spray Tamsulosin HCl (Tamsulosin Hcl 0.4 Mg Capsule) 0.4 mg PO DAILY [facility] Last Admin: 03/03/23 09:20 Dose: 0.4 mg Trazodone HCl (Trazodone Hcl 100 Mg Tablet) 200 mg PO BEDTIME [facility] Last Admin: 03/03/23 21:14 Dose: 200 mg Venlafaxine HCl (Venlafaxine Hcl Er 75 Mg Cap.Er.24h) 75 mg PO DAILY [facility] Last Admin: 03/03/23 09:20 Dose: 75 mg Allergies Allergies Allergy/AdvReac Type Severity Reaction Status Date / Time fentanyl [FENTANYL] Allergy Intermediate unknown Verified 04/08/22 07:00 Assessment & Plan Assessment & Plan (1) Major depressive disorder, recurrent severe without psychotic features: Status: Acute Code(s): F33.2 - Major depressive disorder, recurrent severe without psychotic features (2) Cognitive and neurobehavioral dysfunction following brain injury: Status: Acute Code(s): G31.89 - Other specified degenerative diseases of nervous system; F09 - Unspecified mental disorder due to known physiological condition; S06.9X9S - Unspecified intracranial injury with loss of consciousness of unspecified duration, sequela Plan stop am zyprexa ck dep level Patient educated on: diagnosis and medical condition Informed Consent: understands Reason for continued inpatient stay Substantial Risk for: inability to function, rapid decompensation and med/psych decompensation Time Spent With Patient Time: Total time managing care of this patient today ____ minutes.
[2023-03-04 06:00] VITALS: BP 132/78; PULSE 78; RESP 16; TEMP 36.7; O2SAT 96
[2023-03-04 08:00] LABS: MANUAL DIFF FLAG NO
[2023-03-04 08:02] LABS: Basophils Percent Auto 0.5 % (0-2); Eosinophils Absolute Auto 0.5 X10*3/uL (0.0-0.4); Eosinophils Percent Auto 8.2 % (0-4); Hematocrit 43.4 % (42.0-52.0); Hemoglobin 14.2 g/dl (14.0-18.0); Imm Gran Abs Auto 0.05 X10*3/uL (0.00-0.03); Imm Gran Pct Auto 0.9 % (0.0-0.4); Lymphocytes Absolute Auto 1.8 X10*3/uL (1.2-4.9); Lymphocytes Percent Auto 31.5 % (20-40); Mean Corpuscular HGB Conc 32.7 g/dl (31.0-36.0); Mean Corpuscular Volume 94.8 fL (80.0-98.0); Mean Platelet Volume 9.6 fL (9.4-12.4); Monocytes Absolute Auto 0.5 X10*3/uL (0.1-1.2); Monocytes Percent Auto 8.7 % (2-11); Neutrophils Absolute Auto 2.9 x10*3/uL (2.0-8.3); Neutrophils Percent Auto 50.2 % (45-73); Platelet Count 173 X10*3/uL (160-400); Red Blood Count 4.58 X10*6/uL (4.60-5.80); Red Cell Distribution Width 12.3 % (11.0-16.0); White Blood Count 5.8 X10*3/uL (4.8-10.8)
[2023-03-04 08:19] LABS: Valproate 56.7 mcg/mL (50.0-100.0)
[2023-03-04 08:21] LABS: Alanine Aminotransferase 42 U/L (0-40); Albumin Level 4.3 g/dL (3.5-5.0); Alkaline Phosphatase 70 U/L (39-117); Anion Gap 13 (12-20); Aspartate Amino Transferase 28 U/L (5-37); Bilirubin Total 0.6 mg/dL (0.0-1.0); Blood Urea Nitrogen 12 mg/dL (9-16); Calcium 9.8 mg/dL (8.4-10.2); Carbon Dioxide 30 mmol/L (22-29); Chloride 104 mmol/L (96-108); Estimated Glomerular Filt Rate > 60; Glucose Fasting 83 mg/dL (60-99); Potassium 4.8 mmol/L (3.3-5.1); Sodium 142 mmol/L (135-145); Total Protein 6.8 g/dL (6.5-8.0)
[2023-03-04] MEDS: amLODIPine Besylate 5 MG TABLET PO (08:47)
[2023-03-04] MEDS: polyethylene glycoL 3350 17 GM POWD.PACK PO (08:47)
[2023-03-04] MEDS: Divalproex Sodium Sprinkles 125 MG CAP.DR.SPR 500 MG PO (08:47)
[2023-03-04] MEDS: lamoTRIgine 100 MG TABLET PO ×2 (08:48→21:26)
[2023-03-04] MEDS: Venlafaxine HCl ER 75 MG CAP.ER.24H PO (08:48)
[2023-03-04] MEDS: Tamsulosin HCL 0.4 MG CAPSULE PO (08:48)
[2023-03-04] MEDS: OLANZapine 2.5 MG TABLET PO (14:50)
[2023-03-04] MEDS: Nystatin Powder 15 GM BOTTLE 1 APPL TOPICAL (14:50)
[2023-03-04] MEDS: Lidocaine 5 % Ointment 35 GM 1 APPL TOPICAL (14:50)
[2023-03-04] MEDS: guaiFENesin DM 100/10/5 ML 5 ML SYRUP PO ×2 (14:50→20:01)
[2023-03-04] MEDS: Clotrimazole 1 % Cream 15 GM TUBE 1 APPL TOPICAL (14:52)
[2023-03-04 18:00] VITALS: BP 148/79; PULSE 85; RESP 18; TEMP 36.3; O2SAT 98
--- NOTE | 2023-03-04 19:39 | P.PNPSI_ITS ---
Subjective Subjective Date of Service: 03/04/23 Reason For Visit: Depression hopelessness irritability Subjective Notes: Conditional Voluntary Interim History: pt has been somewhat fatigued had poor sleep last nite Medication Compliance: Yes Mental Status Exam Mental Status Exam Patient Appearance: Appropriate Patient Orientation: Person and Situation Level of Consciousness: Awake, Appropriate and Drowsy Patient Behavior: Guarded and Passive Mood Description: Withdrawn Affect Description: Constricted Patient Cognition Impaired: Yes Speech Pattern: Clear Hallucinations: None Delusions: Not Present Thought Process: Linear Thought Content: positive for Circumstantial Judgement: Fair Diagnostics Vital Signs (24Hr): Vital Signs - 24 hr 03/04/23 06:00 Temperature 98.1 F Pulse Rate 78 Respiratory Rate 16 Blood Pressure 132/78 Pulse Oximetry 96 Oxygen Delivery Method Room Air BMI result Body Mass Index 30.8 Labs 03/04/23 07:45 03/04/23 07:45 Labs: Laboratory Results - last 48 hr 03/04/23 03/04/23 03/04/23 07:45 07:45 07:45 WBC 5.8 RBC 4.58 L Hgb 14.2 Hct 43.4 MCV 94.8 MCH 31.0 MCHC 32.7 RDW 12.3 Plt Count 173 MPV 9.6 Immature Gran % (Auto) 0.9 H Neut % (Auto) 50.2 Lymph % (Auto) 31.5 [place] % (Auto) 8.7 Eos % (Auto) 8.2 H Baso % (Auto) 0.5 Lymph # (Auto) 1.8 [place] # (Auto) 0.5 Eos # (Auto) 0.5 H Baso # (Auto) 0.0 Abs Immat Gran (auto) 0.05 H Absolute Neuts (auto) 2.9 Absolute Nucleated RBC 0.000 Nucleated RBC % (auto) 0.0 Sodium 142 Potassium 4.8 Chloride 104 Carbon Dioxide 30 H Anion Gap 13 BUN 12 Creatinine 0.92 Estim Creat Clear Calc 101.0 Estimated GFR > 60 Fasting Glucose 83 Calcium 9.8 D Total Bilirubin 0.6 AST 28 ALT 42 H Alkaline Phosphatase 70 Total Protein 6.8 Albumin 4.3 Valproic Acid 56.7 Imaging Radiology Impressions: ITS Impressions Chest X-Ray 10/20/22 15:45 IMPRESSION: 1. Low lung volumes with bibasilar linear disc atelectasis versus scarring. 2. No airspace consolidation or effusion. Head CT 11/08/22 12:29 IMPRESSION: No acute intracranial hemorrhage or territorial infarction. Stable chronic postoperative changes with gliosis and encephalomalacia in the right frontal and right temporal lobes. Ex vacuo dilatation of the ventricles and diffuse parenchymal volume loss. Right-sided craniotomy changes. Chest X-Ray 11/12/22 10:32 IMPRESSION: Hypoexpanded lungs with bibasilar platelike atelectasis. Brain MRI 11/12/22 13:15 IMPRESSION: 1. No demonstrated acute intracranial abnormalities. 2. Chronic encephalomalacia of the right temporal, right frontal, and left occipital lobes. Small regions of chronic encephalomalacia in the parasagittal aspects of the bilateral parietal lobes. Moderate underlying microangiopathy and generalized cerebral volume loss. Chest X-Ray 11/14/22 15:52 IMPRESSION: Low lung volumes, bibasilar subsegmental atelectasis and slight elevation of the right hemidiaphragm similar to previous exam. Modified Barium Swallow 11/21/22 15:11 IMPRESSION: Laryngeal penetration on several occasions but no laryngeal aspiration. Mild retention of solid food in the valleculae which cleared with subsequent oral administration of water or thin barium. Correlate with speech therapy results. Orbit CT 01/23/23 14:05 IMPRESSION: - No definite significant intraorbital soft tissue findings to assessment is limited on a noncontrast CT of the orbits. No retrobulbar mass lesions and no cellulitic changes appreciated. - There are large fluid levels within the left maxillary sinus and within the right frontal sinus the can be correlated for clinical signs of acute sinusitis. - A peripherally ossified structure extending from the dorsal margin of the right nasolacrimal duct into the right maxillary sinus is stable when compared to examinations dated back to 08/24/2008 favoring a benign etiology. Cervical Spine CT 02/14/23 22:15 IMPRESSION: 1. No acute intracranial abnormality. Stable postsurgical changes with right frontotemporal encephalomalacia, global volume loss, and extraocular dilatation of the right lateral ventricle. 2. No cervical spine fracture or traumatic malalignment. Head CT 02/14/23 22:15 IMPRESSION: 1. No acute intracranial abnormality. Stable postsurgical changes with right frontotemporal encephalomalacia, global volume loss, and extraocular dilatation of the right lateral ventricle. 2. No cervical spine fracture or traumatic malalignment. Hip/Pelvis X-Ray 02/14/23 22:25 IMPRESSION: Moderate degenerative changes of the right hip with loss of superolateral joint space. Similar chronic posttraumatic deformity of the right femoral neck with chronic foreshortening. Status post left total hip arthroplasty in unchanged alignment however the lack of a crosstable lateral view limits assessment for dislocation. No acute fracture or dislocation appreciated on the available views. Foot X-Ray 02/22/23 13:50 IMPRESSION: * Postsurgical changes of arthrodesis first metatarsophalangeal joint. * There is developed large osteophyte from the head of the first metatarsal protruding laterally abutting the head of the second metatarsal. This might be the source of patient's pain. * Underlying degenerative osteoarthritis. Foot X-Ray 02/23/23 14:11 IMPRESSION: Mild degenerative changes MTP, PIP and DIP joints. No visible acute fracture or dislocation seen. Medications Medications Current Medications Acetaminophen (Acetaminophen 325 Mg Tablet) 975 mg PO Q6H PRN PRN Reason: Headache/Pain Mild Scale (1-3) Last Admin: 03/03/23 15:31 Dose: 975 mg Albuterol Sulfate (Albuterol Sulfate 90 Mcg 8 Gm Inhaler) 2 puff INHALE Q6H PRN PRN Reason: Wheezing Alprazolam (Alprazolam 0.5 Mg Tablet) 0.5 mg PO BEDTIME TAZ Last Admin: 03/03/23 21:12 Dose: 0.5 mg Alprazolam (Alprazolam 0.25 Mg Tablet) 0.25 mg PO TID PRN PRN Reason: anxiety/restlessness Last Admin: 03/03/23 15:31 Dose: 0.25 mg Amlodipine Besylate (Amlodipine Besylate 5 Mg Tablet) 5 mg PO DAILY [facility]; Protocol Last Admin: 03/04/23 08:47 Dose: 5 mg Bisacodyl (Bisacodyl 10 Mg Supp.Rect) 10 mg [place] DAILY PRN PRN Reason: Constipation Clotrimazole (Clotrimazole 1 % Cream 15 Gm Tube) 1 appl TOPICAL BID [facility]; Protocol Last Admin: 03/04/23 14:52 Dose: 1 appl Divalproex Sodium (Divalproex Sodium Sprinkles 125 Mg ) 250 mg PO D AILY [facility] Divalproex Sodium (Divalproex Sodium 250 Mg Tablet.Dr) 750 mg PO BEDTIME [facility] Guaifenesin/Dextromethorphan (Guaifenesin Dm 100/10/5 Ml 5 Ml Syrup) 5 ml PO Q4H PRN PRN Reason: cough Last Admin: 03/04/23 14:50 Dose: 5 ml Hydrocortisone (Hydrocortisone 1 % Cream 28.35 Gm Tube) 1 appl TOPICAL BID PRN; Protocol PRN Reason: itchy feet Last Admin: 03/01/23 20:54 Dose: 1 appl Hydroxyzine HCl (Hydroxyzine Hcl 50 Mg Tablet) 50 mg PO Q4H PRN PRN Reason: Anxiety Last Admin: 03/03/23 15:31 Dose: 50 mg Ibuprofen (Ibuprofen 600 Mg Tablet) 600 mg PO Q6H PRN PRN Reason: Pain, Moderate (Pain Scale 4-6 Last Admin: 02/28/23 05:59 Dose: 600 mg Lamotrigine (Lamotrigine 100 Mg Tablet) 100 mg PO BID [facility] Last Admin: 03/04/23 08:48 Dose: 100 mg Latanoprost (Latanoprost 0.005 % Ophth No 2.5 Ml Drops) 1 drop EYE-BOTH BEDTIME [facility] Last Admin: 03/03/23 21:15 Dose: 1 drop Lidocaine (Lidocaine 5 % Ointment 35 Gm) 1 appl TOPICAL Q6H PRN; Protocol PRN Reason: pain r foot Last Admin: 03/04/23 14:50 Dose: 1 appl Magnesium Hydroxide (Milk Of Magnesia 30 Ml Oral.Susp) 30 ml PO BID PRN PRN Reason: constipation, stomach/GI upset Multi-Ingred Cream/Lotion/Oil/Oint (Mineral Oil/Petrolatum,White 106 Gm Tube) 1 appl TOPICAL BID PRN; Protocol PRN Reason: dry skin Nortriptyline HCl (Nortriptyline Hcl 25 Mg Capsule) 50 mg PO BEDTIME [facility] Last Admin: 03/03/23 21:13 Dose: 50 mg Nystatin (Nystatin Powder 15 Gm Bottle) 1 appl TOPICAL BID [facility]; Protocol Last Admin: 03/04/23 14:50 Dose: 1 appl Olanzapine (Olanzapine 2.5 Mg Tablet) 2.5 mg PO Q4H PRN PRN Reason: anxiety/restlessness Olanzapine (Olanzapine 2.5 Mg Tablet) 2.5 mg PO DAILY@1500 [facility] Last Admin: 03/04/23 14:50 Dose: 2.5 mg Olanzapine (Olanzapine 5 Mg Tablet) 5 mg PO BEDTIME [facility] Last Admin: 03/03/23 21:19 Dose: 5 mg Polyethylene Glycol (Polyethylene Glycol 3350 17 Gm Powd.Pack) 17 gm PO BID [facility] Last Admin: 03/04/23 08:47 Dose: 17 gm Senna/Docusate Sodium (Sennosides/Docusate Sodium Tablet) 2 tab PO BEDTIME [facility] Last Admin: 03/03/23 21:13 Dose: 2 tab Sodium Biphosphate/Sodium Phosphate (Sodium Phosphate,[place]-Dibasic 133 Ml Enema) 133 ml [place] ONCE PRN PRN Reason: Constipation Sodium Chloride (Sodium Chloride 0.65 % Nasal 44 Ml Sprbtl) 1 spray NOSTRIL-B Q1H PRN PRN Reason: Nasal Congestion Last Admin: 02/26/23 21:14 Dose: 1 spray Tamsulosin HCl (Tamsulosin Hcl 0.4 Mg Capsule) 0.4 mg PO DAILY [facility] Last Admin: 03/04/23 08:48 Dose: 0.4 mg Trazodone HCl (Trazodone Hcl 100 Mg Tablet) 200 mg PO BEDTIME [facility] Last Admin: 03/03/23 21:14 Dose: 200 mg Venlafaxine HCl (Venlafaxine Hcl Er 75 Mg Cap.Er.24h) 75 mg PO DAILY [facility] Last Admin: 03/04/23 08:48 Dose: 75 mg Allergies Allergies Allergy/AdvReac Type Severity Reaction Status Date / Time fentanyl [FENTANYL] Allergy Intermediate unknown Verified 04/08/22 07:00 Assessment & Plan Assessment & Plan (1) Major depressive disorder, recurrent severe without psychotic features: Status: Acute Code(s): F33.2 - Major depressive disorder, recurrent severe without psychotic features (2) Cognitive and neurobehavioral dysfunction following brain injury: Status: Acute Code(s): G31.89 - Other specified degenerative diseases of nervous system; F09 - Unspecified mental disorder due to known physiological condition; S06.9X9S - Unspecified intracranial injury with loss of consciousness of unspecified duration, sequela Plan dep level 52 change dep 250 am 750 hs Patient educated on: therapeutic strategies Informed Consent: further education needed Reason for continued inpatient stay Substantial Risk for: harm to self and rapid decompensation Time Spent With Patient Time: Total time managing care of this patient today ____ minutes.
[2023-03-04] MEDS: Nortriptyline HCl 25 MG CAPSULE 50 MG PO (21:25)
[2023-03-04] MEDS: ALPRAZolam 0.5 MG TABLET PO (21:25)
[2023-03-04] MEDS: Divalproex Sodium 250 MG TABLET.DR 750 MG PO (21:26)
[2023-03-04] MEDS: Acetaminophen 325 MG TABLET 975 MG PO (21:27)
[2023-03-04] MEDS: traZODone HCL 100 MG TABLET 200 MG PO (21:29)
[2023-03-04] MEDS: OLANZapine 5 MG TABLET PO (21:29)
[2023-03-04] MEDS: Sennosides/Docusate Sodium TABLET 2 TAB PO (21:29)
[2023-03-04] MEDS: Latanoprost 0.005 % Ophth Sol 2.5 ML DROPS 1 DROP EYE-BOTH (21:48)
[2023-03-05] MEDS: Clotrimazole 1 % Cream 15 GM TUBE 1 APPL TOPICAL ×3 (00:51→22:24)
[2023-03-05] MEDS: Nystatin Powder 15 GM BOTTLE 1 APPL TOPICAL ×3 (00:51→21:44)
[2023-03-05] MEDS: Acetaminophen 325 MG TABLET 975 MG PO (05:17)
[2023-03-05] MEDS: hydrOXYzine HCL 50 MG TABLET PO (05:18)
[2023-03-05 06:00] VITALS: BP 136/79; PULSE 78; RESP 18; TEMP 36.2; O2SAT 97
[2023-03-05] MEDS: amLODIPine Besylate 5 MG TABLET PO (10:02)
[2023-03-05] MEDS: Tamsulosin HCL 0.4 MG CAPSULE PO (10:02)
[2023-03-05] MEDS: Divalproex Sodium Sprinkles 125 MG CAP.DR.SPR 250 MG PO (10:02)
[2023-03-05] MEDS: lamoTRIgine 100 MG TABLET PO ×2 (10:03→21:43)
[2023-03-05] MEDS: Venlafaxine HCl ER 75 MG CAP.ER.24H PO (10:03)
[2023-03-05] MEDS: OLANZapine 2.5 MG TABLET PO (15:57)
[2023-03-05 18:00] VITALS: RESP 16
[2023-03-05 18:37] LABS: Ammonia 43 umol/L (13-55)
[2023-03-05] MEDS: ALPRAZolam 0.25 MG TABLET PO (19:54)
[2023-03-05] MEDS: Nortriptyline HCl 25 MG CAPSULE 50 MG PO (21:40)
[2023-03-05] MEDS: Divalproex Sodium 250 MG TABLET.DR 750 MG PO (21:41)
[2023-03-05] MEDS: traZODone HCL 100 MG TABLET 200 MG PO (21:41)
[2023-03-05] MEDS: OLANZapine 5 MG TABLET PO (21:42)
[2023-03-05] MEDS: ALPRAZolam 0.5 MG TABLET PO (21:42)
[2023-03-05] MEDS: Hydrocortisone 1 % Cream 28.35 GM TUBE 1 APPL TOPICAL (21:44)
--- NOTE | 2023-03-05 21:51 | P.PNPSI_ITS ---
Subjective Subjective Date of Service: 03/05/23 Reason For Visit: Depression hopelessness irritability Subjective Notes: Conditional Voluntary Healthcare Proxy: No Guardianship: No Interim History: Patient has been more irritable dysphoric reactive. Seems to be having more difficulty eating difficulty has been more sedated reactive with the other patients Medication Compliance: Yes Attending Groups: Intermittent Mental Status Exam Mental Status Exam Patient Appearance: Appropriate Patient Orientation: Person and Situation Level of Consciousness: Awake, Appropriate and Drowsy Patient Behavior: Talkative, Distractible, Isolative and Impulsive Mood Description: Withdrawn Affect Description: Constricted Patient Cognition Impaired: Yes Speech Pattern: Clear Hallucinations: None Delusions: Not Present Thought Process: Linear Thought Content: positive for Circumstantial Judgement: Fair Diagnostics Vital Signs (24Hr): Vital Signs - 24 hr 03/05/23 06:00 Temperature 97.2 F Pulse Rate 78 Respiratory Rate 18 Blood Pressure 136/79 Pulse Oximetry 97 Oxygen Delivery Method Room Air BMI result Body Mass Index 30.8 Labs 03/04/23 07:45 03/04/23 07:45 Labs: Laboratory Results - last 48 hr 03/04/23 03/04/23 03/04/23 07:45 07:45 07:45 WBC 5.8 RBC 4.58 L Hgb 14.2 Hct 43.4 MCV 94.8 MCH 31.0 MCHC 32.7 RDW 12.3 Plt Count 173 MPV 9.6 Immature Gran % (Auto) 0.9 H Neut % (Auto) 50.2 Lymph % (Auto) 31.5 [place] % (Auto) 8.7 Eos % (Auto) 8.2 H Baso % (Auto) 0.5 Lymph # (Auto) 1.8 [place] # (Auto) 0.5 Eos # (Auto) 0.5 H Baso # (Auto) 0.0 Abs Immat Gran (auto) 0.05 H Absolute Neuts (auto) 2.9 Absolute Nucleated RBC 0.000 Nucleated RBC % (auto) 0.0 Sodium 142 Potassium 4.8 Chloride 104 Carbon Dioxide 30 H Anion Gap 13 BUN 12 Creatinine 0.92 Estim Creat Clear Calc 101.0 Estimated GFR > 60 Fasting Glucose 83 Calcium 9.8 D Total Bilirubin 0.6 AST 28 ALT 42 H Alkaline Phosphatase 70 Ammonia Total Protein 6.8 Albumin 4.3 Valproic Acid 56.7 03/05/23 18:23 WBC RBC Hgb Hct MCV MCH MCHC RDW Plt Count MPV Immature Gran % (Auto) Neut % (Auto) Lymph % (Auto) [place] % (Auto) Eos % (Auto) Baso % (Auto) Lymph # (Auto) [place] # (Auto) Eos # (Auto) Baso # (Auto) Abs Immat Gran (auto) Absolute Neuts (auto) Absolute Nucleated RBC Nucleated RBC % (auto) Sodium Potassium Chloride Carbon Dioxide Anion Gap BUN Creatinine Estim Creat Clear Calc Estimated GFR Fasting Glucose Calcium Total Bilirubin AST ALT Alkaline Phosphatase Ammonia 43 Total Protein Albumin Valproic Acid Imaging Radiology Impressions: ITS Impressions Chest X-Ray 10/20/22 15:45 IMPRESSION: 1. Low lung volumes with bibasilar linear disc atelectasis versus scarring. 2. No airspace consolidation or effusion. Head CT 11/08/22 12:29 IMPRESSION: No acute intracranial hemorrhage or territorial infarction. Stable chronic postoperative changes with gliosis and encephalomalacia in the right frontal and right temporal lobes. Ex vacuo dilatation of the ventricles and diffuse parenchymal volume loss. Right-sided craniotomy changes. Chest X-Ray 11/12/22 10:32 IMPRESSION: Hypoexpanded lungs with bibasilar platelike atelectasis. Brain MRI 11/12/22 13:15 IMPRESSION: 1. No demonstrated acute intracranial abnormalities. 2. Chronic encephalomalacia of the right temporal, right frontal, and left occipital lobes. Small regions of chronic encephalomalacia in the parasagittal aspects of the bilateral parietal lobes. Moderate underlying microangiopathy and generalized cerebral volume loss. Chest X-Ray 11/14/22 15:52 IMPRESSION: Low lung volumes, bibasilar subsegmental atelectasis and slight elevation of the right hemidiaphragm similar to previous exam. Modified Barium Swallow 11/21/22 15:11 IMPRESSION: Laryngeal penetration on several occasions but no laryngeal aspiration. Mild retention of solid food in the valleculae which cleared with subsequent oral administration of water or thin barium. Correlate with speech therapy results. Orbit CT 01/23/23 14:05 IMPRESSION: - No definite significant intraorbital soft tissue findings to assessment is limited on a noncontrast CT of the orbits. No retrobulbar mass lesions and no cellulitic changes appreciated. - There are large fluid levels within the left maxillary sinus and within the right frontal sinus the can be correlated for clinical signs of acute sinusitis. - A peripherally ossified structure extending from the dorsal margin of the right nasolacrimal duct into the right maxillary sinus is stable when compared to examinations dated back to 08/24/2008 favoring a benign etiology. Cervical Spine CT 02/14/23 22:15 IMPRESSION: 1. No acute intracranial abnormality. Stable postsurgical changes with right frontotemporal encephalomalacia, global volume loss, and extraocular dilatation of the right lateral ventricle. 2. No cervical spine fracture or traumatic malalignment. Head CT 02/14/23 22:15 IMPRESSION: 1. No acute intracranial abnormality. Stable postsurgical changes with right frontotemporal encephalomalacia, global volume loss, and extraocular dilatation of the right lateral ventricle. 2. No cervical spine fracture or traumatic malalignment. Hip/Pelvis X-Ray 02/14/23 22:25 IMPRESSION: Moderate degenerative changes of the right hip with loss of superolateral joint space. Similar chronic posttraumatic deformity of the right femoral neck with chronic foreshortening. Status post left total hip arthroplasty in unchanged alignment however the lack of a crosstable lateral view limits assessment for dislocation. No acute fracture or dislocation appreciated on the available views. Foot X-Ray 02/22/23 13:50 IMPRESSION: * Postsurgical changes of arthrodesis first metatarsophalangeal joint. * There is developed large osteophyte from the head of the first metatarsal protruding laterally abutting the head of the second metatarsal. This might be the source of patient's pain. * Underlying degenerative osteoarthritis. Foot X-Ray 02/23/23 14:11 IMPRESSION: Mild degenerative changes MTP, PIP and DIP joints. No visible acute fracture or dislocation seen. Medications Medications Current Medications Acetaminophen (Acetaminophen 325 Mg Tablet) 975 mg PO Q6H PRN PRN Reason: Headache/Pain Mild Scale (1-3) Last Admin: 03/05/23 05:17 Dose: 975 mg Albuterol Sulfate (Albuterol Sulfate 90 Mcg 8 Gm Inhaler) 2 puff INHALE Q6H PRN PRN Reason: Wheezing Alprazolam (Alprazolam 0.5 Mg Tablet) 0.5 mg PO BEDTIME TAZ Last Admin: 03/05/23 21:42 Dose: 0.5 mg Alprazolam (Alprazolam 0.25 Mg Tablet) 0.25 mg PO TID PRN PRN Reason: anxiety/restlessness Last Admin: 03/05/23 19:54 Dose: 0.25 mg Amlodipine Besylate (Amlodipine Besylate 5 Mg Tablet) 5 mg PO DAILY [facility]; Protocol Last Admin: 03/05/23 10:02 Dose: 5 mg Bisacodyl (Bisacodyl 10 Mg Supp.Rect) 10 mg ME DAILY PRN PRN Reason: Constipation Clotrimazole (Clotrimazole 1 % Cream 15 Gm Tube) 1 appl TOPICAL BID [facility]Z; Protocol Last Admin: 03/05/23 12:17 Dose: 1 appl Divalproex Sodium (Divalproex Sodium 250 Mg Tablet.Dr) 750 mg PO BEDTIME [facility] Last Admin: 03/05/23 21:41 Dose: 750 mg Guaifenesin/Dextromethorphan (Guaifenesin Dm 100/10/5 Ml 5 Ml Syrup) 5 ml PO Q4H PRN PRN Reason: cough Last Admin: 03/04/23 20:01 Dose: 5 ml Hydrocortisone (Hydrocortisone 1 % Cream 28.35 Gm Tube) 1 appl TOPICAL BID PRN; Protocol PRN Reason: itchy feet Last Admin: 03/05/23 21:44 Dose: 1 appl Hydroxyzine HCl (Hydroxyzine Hcl 25 Mg Tablet) 25 mg PO Q4H PRN PRN Reason: Anxiety Ibuprofen (Ibuprofen 600 Mg Tablet) 600 mg PO Q6H PRN PRN Reason: Pain, Moderate (Pain Scale 4-6 Last Admin: 02/28/23 05:59 Dose: 600 mg Lamotrigine (Lamotrigine 100 Mg Tablet) 100 mg PO BID [facility] Last Admin: 03/05/23 21:43 Dose: 100 mg Latanoprost (Latanoprost 0.005 % Ophth No 2.5 Ml Drops) 1 drop EYE-BOTH BEDTIME [facility] Last Admin: 03/04/23 21:48 Dose: 1 drop Lidocaine (Lidocaine 5 % Ointment 35 Gm) 1 appl TOPICAL Q6H PRN; Protocol PRN Reason: pain r foot Last Admin: 03/04/23 14:50 Dose: 1 appl Magnesium Hydroxide (Milk Of Magnesia 30 Ml Oral.Susp) 30 ml PO BID PRN PRN Reason: constipation, stomach/GI upset Multi-Ingred Cream/Lotion/Oil/Oint (Mineral Oil/Petrolatum,White 106 Gm Tube) 1 appl TOPICAL BID PRN; Protocol PRN Reason: dry skin Nortriptyline HCl (Nortriptyline Hcl 25 Mg Capsule) 50 mg PO BEDTIME [facility] Last Admin: 03/05/23 21:40 Dose: 50 mg Nystatin (Nystatin Powder 15 Gm Bottle) 1 appl TOPICAL BID [facility]; Protocol Last Admin: 03/05/23 21:44 Dose: 1 appl Olanzapine (Olanzapine 2.5 Mg Tablet) 2.5 mg PO Q4H PRN PRN Reason: anxiety/restlessness Olanzapine (Olanzapine 2.5 Mg Tablet) 2.5 mg PO DAILY@1500 [facility] Last Admin: 03/05/23 15:57 Dose: 2.5 mg Olanzapine (Olanzapine 5 Mg Tablet) 5 mg PO BEDTIME [facility] Last Admin: 03/05/23 21:42 Dose: 5 mg Polyethylene Glycol (Polyethylene Glycol 3350 17 Gm Powd.Pack) 17 gm PO BID [facility] Last Admin: 03/05/23 10:05 Dose: Not Given Senna/Docusate Sodium (Sennosides/Docusate Sodium Tablet) 2 tab PO BEDTIME [facility] Last Admin: 03/04/23 21:29 Dose: 1 tab Sodium Biphosphate/Sodium Phosphate (Sodium Phosphate,[place]-Dibasic 133 Ml Enema) 133 ml ME ONCE PRN PRN Reason: Constipation Sodium Chloride (Sodium Chloride 0.65 % Nasal 44 Ml Sprbtl) 1 spray NOSTRIL-B Q1H PRN PRN Reason: Nasal Congestion Last Admin: 02/26/23 21:14 Dose: 1 spray Tamsulosin HCl (Tamsulosin Hcl 0.4 Mg Capsule) 0.4 mg PO DAILY [facility] Last Admin: 03/05/23 10:02 Dose: 0.4 mg Trazodone HCl (Trazodone Hcl 100 Mg Tablet) 200 mg PO BEDTIME [facility] Last Admin: 03/05/23 21:41 Dose: 200 mg Venlafaxine HCl (Venlafaxine Hcl Er 75 Mg Cap.Er.24h) 75 mg PO DAILY [facility] Last Admin: 03/05/23 10:03 Dose: 75 mg Allergies Allergies Allergy/AdvReac Type Severity Reaction Status Date / Time fentanyl [FENTANYL] Allergy Intermediate unknown Verified 04/08/22 07:00 Assessment & Plan Assessment & Plan (1) Major depressive disorder, recurrent severe without psychotic features: Status: Acute Code(s): F33.2 - Major depressive disorder, recurrent severe without psychotic features (2) Cognitive and neurobehavioral dysfunction following brain injury: Status: Acute Code(s): G31.89 - Other specified degenerative diseases of nervous system; F09 - Unspecified mental disorder due to known physiological condition; S06.9X9S - Unspecified intracranial injury with loss of consciousness of unspecified dura tion, sequela Plan Check ammonia monitor swallowing monitor sedation case reviewed with nursing staff Patient educated on: therapeutic strategies and medical condition Informed Consent: understands Reason for continued inpatient stay Substantial Risk for: inability to function and rapid decompensation Time Spent With Patient Time: Total time managing care of this patient today ____ minutes.
[2023-03-05] MEDS: Lidocaine 5 % Ointment 35 GM 1 APPL TOPICAL (21:53)
[2023-03-05] MEDS: Sennosides/Docusate Sodium TABLET 2 TAB PO (22:22)
[2023-03-05] MEDS: Latanoprost 0.005 % Ophth Sol 2.5 ML DROPS 1 DROP EYE-BOTH (22:23)
[2023-03-05] MEDS: polyethylene glycoL 3350 17 GM POWD.PACK PO (22:23)
[2023-03-06] MEDS: polyethylene glycoL 3350 17 GM POWD.PACK PO (09:05)
[2023-03-06] MEDS: Venlafaxine HCl ER 75 MG CAP.ER.24H PO (09:06)
[2023-03-06] MEDS: Tamsulosin HCL 0.4 MG CAPSULE PO (09:06)
[2023-03-06] MEDS: lamoTRIgine 100 MG TABLET PO ×2 (09:06→21:10)
[2023-03-06] MEDS: amLODIPine Besylate 5 MG TABLET PO (09:06)
[2023-03-06] MEDS: Clotrimazole 1 % Cream 15 GM TUBE 1 APPL TOPICAL ×3 (09:06→22:22)
[2023-03-06 09:36] VITALS: BP 138/74; PULSE 80; RESP 18; TEMP 36.7; O2SAT 96
[2023-03-06] MEDS: ALPRAZolam 0.25 MG TABLET PO (09:42)
[2023-03-06] MEDS: hydrOXYzine HCL 25 MG TABLET PO (09:42)
[2023-03-06] MEDS: OLANZapine 5 MG TABLET PO ×2 (11:21→21:13)
--- NOTE | 2023-03-06 13:54 | PC.NURSE ---
At 10:30 am pt becoming threatening to staff. Holding closed fist to a PO Joce yelling What are you doing?? Joce stated he was watching the pt Samanta became angry stating He should not be watching that pt!! pt in w/c pushed away from pt and PO and discussed pts lack of coping at that time. Pt states he will kill somebody and kill himself Pt then mediated with xanax and atarax Dr Haskins notifed of pt's behavior. Orders received and medicated x1 with zyprexa per . Pt remains billergerant yelling on occas. He is very sleepy in chair leaning to side and when this nurse asked if he should go to bed pt stated are you threatening me? I declined to further interact at this time. Pt ate lunch and began yelling to have channel changed on tv and when we were unable to find remote pt then began yelling and stating he's going to kill someone. Dr Dean spoke with pt
[2023-03-06] MEDS: OLANZapine 2.5 MG TABLET PO (14:11)
--- NOTE | 2023-03-06 17:17 | PC.NURSE ---
Dr Haskins in to see pt
[2023-03-06 18:00] VITALS: BP 125/64; PULSE 72; RESP 18; TEMP 36.2; O2SAT 95
--- NOTE | 2023-03-06 20:50 | P.PNPSI_ITS ---
Subjective Subjective Date of Service: 03/06/23 Reason For Visit: Depression hopelessness irritability Subjective Notes: Conditional Voluntary Healthcare Proxy: No Guardianship: No Medical Problems Affecting Mental Status: No Interim History: THE PATIENT HAS BEEN INCREASINGLY IRASCIBILITY ARGUMENTATIVE THREATENING AT TIMES. THE PATIENT STATES HE HAS BEEN ANXIOUS ABOUT UPCOMING TRANSFER TO DETENTION SETTING BUT HAS BEEN SPEAKING AND DEMEANING WAYS TOWARD OTHERS PATIENT'S STAFF THROWING TRAYS DOWN Medication Compliance: No Review of Systems Medical Review of Systems: unchanged Mental Status Exam Mental Status Exam Patient Appearance: Appropriate Patient Orientation: Person, Place and Situation Level of Consciousness: Awake Patient Behavior: Talkative, Distractible, Isolative, Uncooperative and Impulsive Mood Description: Depressed, Angry and Apprehensive Affect Description: Constricted, Hostile and Labile Patient Cognition Impaired: Yes Speech Pattern: Clear Hallucinations: None Delusions: Not Present Thought Process: Linear Thought Content: positive for Circumstantial Depressive Symptoms: Increased Anxiety and Increased Irritability Judgement: Poor Diagnostics Vital Signs (24Hr): Vital Signs - 24 hr 03/06/23 09:36 Temperature 98.1 F Pulse Rate 80 Respiratory Rate 18 Blood Pressure 138/74 Pulse Oximetry 96 Oxygen Delivery Method Room Air BMI result Body Mass Index 30.8 Labs 03/04/23 07:45 03/04/23 07:45 Labs: Laboratory Results - last 48 hr 03/05/23 18:23 Ammonia 43 Imaging Radiology Impressions: ITS Impressions Chest X-Ray 10/20/22 15:45 IMPRESSION: 1. Low lung volumes with bibasilar linear disc atelectasis versus scarring. 2. No airspace consolidation or effusion. Head CT 11/08/22 12:29 IMPRESSION: No acute intracranial hemorrhage or territorial infarction. Stable chronic postoperative changes with gliosis and encephalomalacia in the right frontal and right temporal lobes. Ex vacuo dilatation of the ventricles and diffuse parenchymal volume loss. Right-sided craniotomy changes. Chest X-Ray 11/12/22 10:32 IMPRESSION: Hypoexpanded lungs with bibasilar platelike atelectasis. Brain MRI 11/12/22 13:15 IMPRESSION: 1. No demonstrated acute intracranial abnormalities. 2. Chronic encephalomalacia of the right temporal, right frontal, and left occipital lobes. Small regions of chronic encephalomalacia in the parasagittal aspects of the bilateral parietal lobes. Moderate underlying microangiopathy and generalized cerebral volume loss. Chest X-Ray 11/14/22 15:52 IMPRESSION: Low lung volumes, bibasilar subsegmental atelectasis and slight elevation of the right hemidiaphragm similar to previous exam. Modified Barium Swallow 11/21/22 15:11 IMPRESSION: Laryngeal penetration on several occasions but no laryngeal aspiration. Mild retention of solid food in the valleculae which cleared with subsequent oral administration of water or thin barium. Correlate with speech therapy results. Orbit CT 01/23/23 14:05 IMPRESSION: - No definite significant intraorbital soft tissue findings to assessment is limited on a noncontrast CT of the orbits. No retrobulbar mass lesions and no cellulitic changes appreciated. - There are large fluid levels within the left maxillary sinus and within the right frontal sinus the can be correlated for clinical signs of acute sinusitis. - A peripherally ossified structure extending from the dorsal margin of the right nasolacrimal duct into the right maxillary sinus is stable when compared to examinations dated back to 08/24/2008 favoring a benign etiology. Cervical Spine CT 02/14/23 22:15 IMPRESSION: 1. No acute intracranial abnormality. Stable postsurgical changes with right frontotemporal encephalomalacia, global volume loss, and extraocular dilatation of the right lateral ventricle. 2. No cervical spine fracture or traumatic malalignment. Head CT 02/14/23 22:15 IMPRESSION: 1. No acute intracranial abnormality. Stable postsurgical changes with right frontotemporal encephalomalacia, global volume loss, and extraocular dilatation of the right lateral ventricle. 2. No cervical spine fracture or traumatic malalignment. Hip/Pelvis X-Ray 02/14/23 22:25 IMPRESSION: Moderate degenerative changes of the right hip with loss of superolateral joint space. Similar chronic posttraumatic deformity of the right femoral neck with chronic foreshortening. Status post left total hip arthroplasty in unchanged alignment however the lack of a crosstable lateral view limits assessment for dislocation. No acute fracture or dislocation appreciated on the available views. Foot X-Ray 02/22/23 13:50 IMPRESSION: * Postsurgical changes of arthrodesis first metatarsophalangeal joint. * There is developed large osteophyte from the head of the first metatarsal protruding laterally abutting the head of the second metatarsal. This might be the source of patient's pain. * Underlying degenerative osteoarthritis. Foot X-Ray 02/23/23 14:11 IMPRESSION: Mild degenerative changes MTP, PIP and DIP joints. No visible acute fracture or dislocation seen. Medications Medications Current Medications Acetaminophen (Acetaminophen 325 Mg Tablet) 975 mg PO Q6H PRN PRN Reason: Headache/Pain Mild Scale (1-3) Last Admin: 03/05/23 05:17 Dose: 975 mg Albuterol Sulfate (Albuterol Sulfate 90 Mcg 8 Gm Inhaler) 2 puff INHALE Q6H PRN PRN Reason: Wheezing Alprazolam (Alprazolam 0.5 Mg Tablet) 0.5 mg PO BEDTIME [facility] Last Admin: 03/05/23 21:42 Dose: 0.5 mg Alprazolam (Alprazolam 0.25 Mg Tablet) 0.25 mg PO TID PRN PRN Reason: anxiety/restlessness Last Admin: 03/06/23 09:42 Dose: 0.25 mg Alprazolam (Alprazolam 0.25 Mg Tablet) 0.25 mg PO BID@0830,1330 [facility] Amlodipine Besylate (Amlodipine Besylate 5 Mg Tablet) 5 mg PO DAILY [facility]; Protocol Last Admin: 03/06/23 09:06 Dose: 5 mg Bisacodyl (Bisacodyl 10 Mg Supp.Rect) 10 mg [place] DAILY PRN PRN Reason: Constipation Clotrimazole (Clotrimazole 1 % Cream 15 Gm Tube) 1 appl TOPICAL BID [facility]; Protocol Last Admin: 03/06/23 09:06 Dose: 1 appl Divalproex Sodium (Divalproex Sodium 250 Mg Tablet.Dr) 750 mg PO BEDTIME [facility] Last Admin: 03/05/23 21:41 Dose: 750 mg Guaifenesin/Dextromethorphan (Guaifenesin Dm 100/10/5 Ml 5 Ml Syrup) 5 ml PO Q4H PRN PRN Reason: cough Last Admin: 03/04/23 20:01 Dose: 5 ml Hydrocortisone (Hydrocortisone 1 % Cream 28.35 Gm Tube) 1 appl TOPICAL BID PRN; Protocol PRN Reason: itchy feet Last Admin: 03/05/23 21:44 Dose: 1 appl Hydroxyzine HCl (Hydroxyzine Hcl 25 Mg Tablet) 25 mg PO Q4H PRN PRN Reason: Anxiety Last Admin: 03/06/23 09:42 Dose: 25 mg Ibuprofen (Ibuprofen 600 Mg Tablet) 600 mg PO Q6H PRN PRN Reason: Pain, Moderate (Pain Scale 4-6 Last Admin: 02/28/23 05:59 Dose: 600 mg Lamotrigine (Lamotrigine 100 Mg Tablet) 100 mg PO BID [facility] Last Admin: 03/06/23 09:06 Dose: 100 mg Latanoprost (Latanoprost 0.005 % Ophth No 2.5 Ml Drops) 1 drop EYE-BOTH BEDTIME [facility] Last Admin: 03/05/23 22:23 Dose: 1 drop Lidocaine (Lidocaine 5 % Ointment 35 Gm) 1 appl TOPICAL Q6H PRN; Protocol PRN Reason: pain r foot Last Admin: 03/05/23 21:53 Dose: 1 appl Magnesium Hydroxide (Milk Of Magnesia 30 Ml Oral.Susp) 30 ml PO BID PRN PRN Reason: constipation, stomach/GI upset Multi-Ingred Cream/Lotion/Oil/Oint (Mineral Oil/Petrolatum,White 106 Gm Tube) 1 appl TOPICAL BID PRN; Protocol PRN Reason: dry skin Nortriptyline HCl (Nortriptyline Hcl 25 Mg Capsule) 50 mg PO BEDTIME [facility] Last Admin: 03/05/23 21:40 Dose: 50 mg Nystatin (Nystatin Powder 15 Gm Bottle) 1 appl TOPICAL BID [facility]; Protocol Last Admin: 03/06/23 09:09 Dose: Not Given Olanzapine (Olanzapine 2.5 Mg Tablet) 2.5 mg PO Q4H PRN PRN Reason: anxiety/restlessness Olanzapine (Olanzapine 2.5 Mg Tablet) 2.5 mg PO DAILY [facility] Olanzapine (Olanzapine 2.5 Mg Tablet) 2.5 mg PO DAILY@1500 [facility] Last Admin: 03/06/23 14:11 Dose: 2.5 mg Olanzapine (Olanzapine 5 Mg Tablet) 5 mg PO BEDTIME [facility] Last Admin: 03/05/23 21:42 Dose: 5 mg Polyethylene Glycol (Polyethylene Glycol 3350 17 Gm Powd.Pack) 17 gm PO BID [facility] Last Admin: 03/06/23 09:05 Dose: 17 gm Propranolol HCl (Propranolol Hcl 10 Mg Tablet) 10 mg PO TID [facility]; Protocol Senna/Docusate Sodium (Sennosides/Docusate Sodium Tablet) 2 tab PO BEDTIME [facility] Last Admin: 03/05/23 22:22 Dose: 1 tab Sodium Biphosphate/Sodium Phosphate (Sodium Phosphate,[place]-Dibasic 133 Ml Enema) 133 ml CA ONCE PRN PRN Reason: Constipation Sodium Chloride (Sodium Chloride 0.65 % Nasal 44 Ml Sprbtl) 1 spray NOSTRIL-B Q1H PRN PRN Reason: Nasal Congestion Last Admin: 02/26/23 21:14 Dose: 1 spray Tamsulosin HCl (Tamsulosin Hcl 0.4 Mg Capsule) 0.4 mg PO DAILY [facility] Last Admin: 03/06/23 09:06 Dose: 0.4 mg Trazodone HCl (Trazodone Hcl 100 Mg Tablet) 200 mg PO BEDTIME [facility] Last Admin: 03/05/23 21:41 Dose: 200 mg Venlafaxine HCl (Venlafaxine Hcl Er 75 Mg Cap.Er.24h) 75 mg PO DAILY [facility] Last Admin: 03/06/23 09:06 Dose: 75 mg Allergies Allergies Allergy/AdvReac Type Severity Reaction Status Date / Time fentanyl [FENTANYL] Allergy Intermediate unknown Verified 04/08/22 07:00 Assessment & Plan Assessment & Plan (1) Major depressive disorder, recurrent severe without psychotic features: Status: Acute Code(s): F33.2 - Major depressive disorder, recurrent severe without psychotic features (2) Cognitive and neurobehavioral dysfunction following brain injury: Status: Acute Code(s): G31.89 - Other specified degenerative diseases of nervous system; F09 - Unspecified mental disorder due to known physiological condition; S06.9X9S - Unspecified intracranial injury with loss of consciousness of unspecified duration, sequela Plan ALPRAZOLAM 0.25 B.I.D. 0.5 BEDTIME OLANZAPINE ALSO 3 TIMES A DAY CONTINUE DEPAKOTE START PROPRANOLOL 10 T.I.D. THE PATIENT CONFRONTED REGARDING NEGATIVE TOXIC BEHAVIOR DIFFICULTY COPING AND NEGATIVE COMPLICATIONS TO HIS LIFE IF CONTINUE VERBALLY AGGRESSIVE AND TOXIC BEHAVIOR WITH OTHERS DEVALUATION ENCOURAGE REFLECTION STRESS MANAGEMENT COPING STRATEGIES Patient educated on: diagnosis, medication risk/benefits and therapeutic strategies Informed Consent: understands Reason for continued inpatient stay Substantial Risk for: stable for discharge and rapid decompensation Time Spent With Patient Time: Total time managing care of this patient today __35__ minutes.
[2023-03-06] MEDS: Nortriptyline HCl 25 MG CAPSULE 50 MG PO (21:09)
[2023-03-06] MEDS: Divalproex Sodium 250 MG TABLET.DR 750 MG PO (21:10)
[2023-03-06] MEDS: Propranolol HCL 10 MG TABLET PO (21:10)
[2023-03-06] MEDS: traZODone HCL 100 MG TABLET 200 MG PO (21:11)
[2023-03-06] MEDS: ALPRAZolam 0.5 MG TABLET PO (21:11)
[2023-03-06] MEDS: Acetaminophen 325 MG TABLET 975 MG PO (21:12)
[2023-03-06] MEDS: Sennosides/Docusate Sodium TABLET 2 TAB PO (21:14)
[2023-03-06] MEDS: Latanoprost 0.005 % Ophth Sol 2.5 ML DROPS 1 DROP EYE-BOTH (22:20)
[2023-03-06] MEDS: Nystatin Powder 15 GM BOTTLE 1 APPL TOPICAL (22:20)
[2023-03-07 07:30] VITALS: BP 189/86; PULSE 71; RESP 16; TEMP 36; O2SAT 96
--- NOTE | 2023-03-07 08:02 | P.PNPSI_ITS ---
Subjective Subjective Date of Service: 03/07/23 Reason For Visit: Depression hopelessness irritability Subjective Notes: Conditional Voluntary Interim History: The nursing staff reported the patient had been depressed confrontational with staff, even threatening at times. I discussed the case with Dr. Haskins yesterday regarding the patient's behavior and the need of boundaries. On interview the patient reports that his feeling depressed the and anxious. He is fully aware that if the residential does not take him, his only option would be jail that he does not like. Mental Status Exam Mental Status Exam Patient Appearance: Well Grooomed and Appropriate Patient Orientation: Person and Situation Level of Consciousness: Awake and Appropriate Patient Behavior: Guarded and Passive Mood Description: Withdrawn Affect Description: Constricted Patient Cognition Impaired: Yes Ability to Follow Directions: Good Speech Pattern: Clear Hallucinations: None Delusions: Not Present Thought Process: Linear Thought Content: positive for Diana and positive for Circumstantial Judgement: Good Diagnostics Vital Signs (24Hr): Vital Signs - 24 hr 03/06/23 09:36 03/06/23 18:00 Temperature 98.1 F 97.2 F Pulse Rate 80 72 Respiratory Rate 18 18 Blood Pressure 138/74 125/64 Pulse Oximetry 96 95 Oxygen Delivery Method Room Air Room Air BMI result Body Mass Index 30.8 Labs 03/04/23 07:45 03/04/23 07:45 Labs: Laboratory Results - last 48 hr 03/05/23 18:23 Ammonia 43 Imaging Radiology Impressions: ITS Impressions Chest X-Ray 10/20/22 15:45 IMPRESSION: 1. Low lung volumes with bibasilar linear disc atelectasis versus scarring. 2. No airspace consolidation or effusion. Head CT 11/08/22 12:29 IMPRESSION: No acute intracranial hemorrhage or territorial infarction. Stable chronic postoperative changes with gliosis and encephalomalacia in the right frontal and right temporal lobes. Ex vacuo dilatation of the ventricles and diffuse parenchymal volume loss. Right-sided craniotomy changes. Chest X-Ray 11/12/22 10:32 IMPRESSION: Hypoexpanded lungs with bibasilar platelike atelectasis. Brain MRI 11/12/22 13:15 IMPRESSION: 1. No demonstrated acute intracranial abnormalities. 2. Chronic encephalomalacia of the right temporal, right frontal, and left occipital lobes. Small regions of chronic encephalomalacia in the parasagittal aspects of the bilateral parietal lobes. Moderate underlying microangiopathy and generalized cerebral volume loss. Chest X-Ray 11/14/22 15:52 IMPRESSION: Low lung volumes, bibasilar subsegmental atelectasis and slight elevation of the right hemidiaphragm similar to previous exam. Modified Barium Swallow 11/21/22 15:11 IMPRESSION: Laryngeal penetration on several occasions but no laryngeal aspiration. Mild retention of solid food in the valleculae which cleared with subsequent oral administration of water or thin barium. Correlate with speech therapy results. Orbit CT 01/23/23 14:05 IMPRESSION: - No definite significant intraorbital soft tissue findings to assessment is limited on a noncontrast CT of the orbits. No retrobulbar mass lesions and no cellulitic changes appreciated. - There are large fluid levels within the left maxillary sinus and within the right frontal sinus the can be correlated for clinical signs of acute sinusitis. - A peripherally ossified structure extending from the dorsal margin of the right nasolacrimal duct into the right maxillary sinus is stable when compared to examinations dated back to 08/24/2008 favoring a benign etiology. Cervical Spine CT 02/14/23 22:15 IMPRESSION: 1. No acute intracranial abnormality. Stable postsurgical changes with right frontotemporal encephalomalacia, global volume loss, and extraocular dilatation of the right lateral ventricle. 2. No cervical spine fracture or traumatic malalignment. Head CT 02/14/23 22:15 IMPRESSION: 1. No acute intracranial abnormality. Stable postsurgical changes with right frontotemporal encephalomalacia, global volume loss, and extraocular dilatation of the right lateral ventricle. 2. No cervical spine fracture or traumatic malalignment. Hip/Pelvis X-Ray 02/14/23 22:25 IMPRESSION: Moderate degenerative changes of the right hip with loss of superolateral joint space. Similar chronic posttraumatic deformity of the right femoral neck with chronic foreshortening. Status post left total hip arthroplasty in unchanged alignment however the lack of a crosstable lateral view limits assessment for dislocation. No acute fracture or dislocation appreciated on the available views. Foot X-Ray 02/22/23 13:50 IMPRESSION: * Postsurgical changes of arthrodesis first metatarsophalangeal joint. * There is developed large osteophyte from the head of the first metatarsal protruding laterally abutting the head of the second metatarsal. This might be the source of patient's pain. * Underlying degenerative osteoarthritis. Foot X-Ray 02/23/23 14:11 IMPRESSION: Mild degenerative changes MTP, PIP and DIP joints. No visible acute fracture or dislocation seen. Medications Medications Current Medications Acetaminophen (Acetaminophen 325 Mg Tablet) 975 mg PO Q6H PRN PRN Reason: Headache/Pain Mild Scale (1-3) Last Admin: 03/06/23 21:12 Dose: 975 mg Albuterol Sulfate (Albuterol Sulfate 90 Mcg 8 Gm Inhaler) 2 puff INHALE Q6H PRN PRN Reason: Wheezing Alprazolam (Alprazolam 0.5 Mg Tablet) 0.5 mg PO BEDTIME TAZ Last Admin: 03/06/23 21:11 Dose: 0.5 mg Alprazolam (Alprazolam 0.25 Mg Tablet) 0.25 mg PO TID PRN PRN Reason: anxiety/restlessness Last Admin: 03/06/23 09:42 Dose: 0.25 mg Alprazolam (Alprazolam 0.25 Mg Tablet) 0.25 mg PO BID@0830,1330 [facility] Amlodipine Besylate (Amlodipine Besylate 5 Mg Tablet) 5 mg PO DAILY TAZ; Protocol Last Admin: 03/06/23 09:06 Dose: 5 mg Bisacodyl (Bisacodyl 10 Mg Supp.Rect) 10 mg [place] DAILY PRN PRN Reason: Constipation Clotrimazole (Clotrimazole 1 % Cream 15 Gm Tube) 1 appl TOPICAL BID TAZ; Protocol Last Admin: 03/06/23 22:22 Dose: 1 appl Divalproex Sodium (Divalproex Sodium 250 Mg Tablet.Dr) 750 mg PO BEDTIME TAZ Last Admin: 03/06/23 21:10 Dose: 750 mg Guaifenesin/Dextromethorphan (Guaifenesin Dm 100/10/5 Ml 5 Ml Syrup) 5 ml PO Q4H PRN PRN Reason: cough Last Admin: 03/04/23 20:01 Dose: 5 ml Hydrocortisone (Hydrocortisone 1 % Cream 28.35 Gm Tube) 1 appl TOPICAL BID PRN; Protocol PRN Reason: itchy feet Last Admin: 03/05/23 21:44 Dose: 1 appl Hydroxyzine HCl (Hydroxyzine Hcl 25 Mg Tablet) 25 mg PO Q4H PRN PRN Reason: Anxiety Last Admin: 03/06/23 09:42 Dose: 25 mg Ibuprofen (Ibuprofen 600 Mg Tablet) 600 mg PO Q6H PRN PRN Reason: Pain, Moderate (Pain Scale 4-6 Last Admin: 02/28/23 05:59 Dose: 600 mg Lamotrigine (Lamotrigine 100 Mg Tablet) 100 mg PO BID [facility] Last Admin: 03/06/23 21:10 Dose: 100 mg Latanoprost (Latanoprost 0.005 % Ophth No 2.5 Ml Drops) 1 drop EYE-BOTH BEDTIME TAZ Last Admin: 03/06/23 22:20 Dose: 1 drop Lidocaine (Lidocaine 5 % Ointment 35 Gm) 1 appl TOPICAL Q6H PRN; Protocol PRN Reason: pain r foot Last Admin: 03/05/23 21:53 Dose: 1 appl Magnesium Hydroxide (Milk Of Magnesia 30 Ml Oral.Susp) 30 ml PO BID PRN PRN Reason: constipation, stomach/GI upset Multi-Ingred Cream/Lotion/Oil/Oint (Mineral Oil/Petrolatum,White 106 Gm Tube) 1 appl TOPICAL BID PRN; Protocol PRN Reason: dry skin Nortriptyline HCl (Nortriptyline Hcl 25 Mg Capsule) 50 mg PO BEDTIME TAZ Last Admin: 03/06/23 21:09 Dose: 50 mg Nystatin (Nystatin Powder 15 Gm Bottle) 1 appl TOPICAL BID TAZ; Protocol Last Admin: 03/06/23 22:20 Dose: 1 appl Olanzapine (Olanzapine 2.5 Mg Tablet) 2.5 mg PO Q4H PRN PRN Reason: anxiety/restlessness Olanzapine (Olanzapine 2.5 Mg Tablet) 2.5 mg PO DAILY TAZ Olanzapine (Olanzapine 2.5 Mg Tablet) 2.5 mg PO DAILY@1500 [facility] Last Admin: 03/06/23 14:11 Dose: 2.5 mg Olanzapine (Olanzapine 5 Mg Tablet) 5 mg PO BEDTIME [facility] Last Admin: 03/06/23 21:13 Dose: 5 mg Polyethylene Glycol (Polyethylene Glycol 3350 17 Gm Powd.Pack) 17 gm PO BID [facility] Last Admin: 03/06/23 22:21 Dose: Not Given Propranolol HCl (Propranolol Hcl 10 Mg Tablet) 10 mg PO TID [facility]; Protocol Last Admin: 03/06/23 21:10 Dose: 10 mg Senna/Docusate Sodium (Sennosides/Docusate Sodium Tablet) 2 tab PO BEDTIME [facility] Last Admin: 03/06/23 21:14 Dose: 1 tab Sodium Biphosphate/Sodium Phosphate (Sodium Phosphate,[place]-Dibasic 133 Ml Enema) 133 ml [place] ONCE PRN PRN Reason: Constipation Sodium Chloride (Sodium Chloride 0.65 % Nasal 44 Ml Sprbtl) 1 spray NOSTRIL-B Q1H PRN PRN Reason: Nasal Congestion Last Admin: 02/26/23 21:14 Dose: 1 spray Tamsulosin HCl (Tamsulosin Hcl 0.4 Mg Capsule) 0.4 mg PO DAILY [facility] Last Admin: 03/06/23 09:06 Dose: 0.4 mg Trazodone HCl (Trazodone Hcl 100 Mg Tablet) 200 mg PO BEDTIME [facility] Last Admin: 03/06/23 21:11 Dose: 200 mg Venlafaxine HCl (Venlafaxine Hcl Er 75 Mg Cap.Er.24h) 75 mg PO DAILY [facility] Last Admin: 03/06/23 09:06 Dose: 75 mg Allergies Allergies Allergy/AdvReac Type Severity Reaction Status Date / Time fentanyl [FENTANYL] Allergy Intermediate unknown Verified 04/08/22 07:00 Assessment & Plan Assessment & Plan (1) Major depressive disorder, recurrent severe without psychotic features: Status: Acute Code(s): F33.2 - Major depressive disorder, recurrent severe without psychotic features (2) Cognitive and neurobehavioral dysfunction following brain injury: Status: Acute Code(s): G31.89 - Other specified degenerative diseases of nervous system; F09 - Unspecified mental disorder due to known physiological condition; S06.9X9S - Unspecified intracranial injury with loss of consciousness of unspecified duration, sequela Plan ALPRAZOLAM 0.25 B.I.D. 0.5 BEDTIME OLANZAPINE ALSO 3 TIMES A DAY CONTINUE DEPAKOTE START PROPRANOLOL 10 T.I.D. THE PATIENT CONFRONTED REGARDING NEGATIVE TOXIC BEHAVIOR DIFFICULTY COPING AND NEGATIVE COMPLICATIONS TO HIS LIFE IF CONTINUE VERBALLY AGGRESSIVE AND TOXIC BEHAVIOR WITH OTHERS DEVALUATION ENCOURAGE REFLECTION STRESS MANAGEMENT COPING STRATEGIES 03/07 with same treatment Reason for continued inpatient stay Substantial Risk for: inability to function, rapid decompensation and med/psych decompensation Time Spent With Patient Time: Total time managing care of this patient today __20__ minutes.
[2023-03-07] MEDS: ALPRAZolam 0.25 MG TABLET PO ×2 (08:40→13:54)
[2023-03-07] MEDS: amLODIPine Besylate 5 MG TABLET PO (08:40)
[2023-03-07] MEDS: Tamsulosin HCL 0.4 MG CAPSULE PO (08:40)
[2023-03-07] MEDS: lamoTRIgine 100 MG TABLET PO ×2 (08:40→20:56)
[2023-03-07] MEDS: Venlafaxine HCl ER 75 MG CAP.ER.24H PO (08:40)
[2023-03-07] MEDS: Propranolol HCL 10 MG TABLET PO ×3 (08:40→20:55)
[2023-03-07] MEDS: polyethylene glycoL 3350 17 GM POWD.PACK PO (08:41)
[2023-03-07] MEDS: OLANZapine 2.5 MG TABLET PO ×2 (08:41→16:59)
[2023-03-07 18:00] VITALS: BP 137/71; PULSE 68; RESP 18; TEMP 36.1; O2SAT 96
[2023-03-07] MEDS: OLANZapine 5 MG TABLET PO (20:55)
[2023-03-07] MEDS: traZODone HCL 100 MG TABLET 200 MG PO (20:55)
[2023-03-07] MEDS: ALPRAZolam 0.5 MG TABLET PO (20:55)
[2023-03-07] MEDS: Divalproex Sodium 250 MG TABLET.DR 750 MG PO (20:56)
[2023-03-07] MEDS: Sennosides/Docusate Sodium TABLET 2 TAB PO (20:56)
[2023-03-07] MEDS: Nortriptyline HCl 25 MG CAPSULE 50 MG PO (20:56)
[2023-03-07] MEDS: Latanoprost 0.005 % Ophth Sol 2.5 ML DROPS 1 DROP EYE-BOTH (22:02)
[2023-03-08 08:25] VITALS: BP 131/64; PULSE 73; RESP 18; TEMP 36.2; O2SAT 95
--- NOTE | 2023-03-08 08:36 | HO.PSYCHPN ---
Subjective Subjective Date of Service: 03/08/23 Reason For Visit: Depression hopelessness irritability Subjective Notes: Conditional Voluntary Interim History: The nursing staff reported the patient refused MiraLax, he took all his meds he slept well. On interview the patient denies new symptoms waiting for placement. Mental Status Exam Mental Status Exam Patient Appearance: Well Grooomed and Appropriate Patient Orientation: Person and Situation Level of Consciousness: Awake and Appropriate Patient Behavior: Guarded and Passive Mood Description: Calm Affect Description: Constricted Patient Cognition Impaired: Yes Ability to Follow Directions: Good Speech Pattern: Clear and Appropriate Hallucinations: None Delusions: Not Present Thought Process: Distracted and Linear Thought Content: positive for Circumstantial Judgement: Fair Diagnostics Vital Signs (24Hr): Vital Signs - 24 hr 03/07/23 18:00 03/08/23 08:25 Temperature 97 F 97.1 F Pulse Rate 68 73 Respiratory Rate 18 18 Blood Pressure 137/71 131/64 Pulse Oximetry 96 95 Oxygen Delivery Method Room Air Room Air BMI result Body Mass Index 30.8 Labs 03/04/23 07:45 03/04/23 07:45 Imaging Radiology Impressions: ITS Impressions Chest X-Ray 10/20/22 15:45 IMPRESSION: 1. Low lung volumes with bibasilar linear disc atelectasis versus scarring. 2. No airspace consolidation or effusion. Head CT 11/08/22 12:29 IMPRESSION: No acute intracranial hemorrhage or territorial infarction. Stable chronic postoperative changes with gliosis and encephalomalacia in the right frontal and right temporal lobes. Ex vacuo dilatation of the ventricles and diffuse parenchymal volume loss. Right-sided craniotomy changes. Chest X-Ray 11/12/22 10:32 IMPRESSION: Hypoexpanded lungs with bibasilar platelike atelectasis. Brain MRI 11/12/22 13:15 IMPRESSION: 1. No demonstrated acute intracranial abnormalities. 2. Chronic encephalomalacia of the right temporal, right frontal, and left occipital lobes. Small regions of chronic encephalomalacia in the parasagittal aspects of the bilateral parietal lobes. Moderate underlying microangiopathy and generalized cerebral volume loss. Chest X-Ray 11/14/22 15:52 IMPRESSION: Low lung volumes, bibasilar subsegmental atelectasis and slight elevation of the right hemidiaphragm similar to previous exam. Modified Barium Swallow 11/21/22 15:11 IMPRESSION: Laryngeal penetration on several occasions but no laryngeal aspiration. Mild retention of solid food in the valleculae which cleared with subsequent oral administration of water or thin barium. Correlate with speech therapy results. Orbit CT 01/23/23 14:05 IMPRESSION: - No definite significant intraorbital soft tissue findings to assessment is limited on a noncontrast CT of the orbits. No retrobulbar mass lesions and no cellulitic changes appreciated. - There are large fluid levels within the left maxillary sinus and within the right frontal sinus the can be correlated for clinical signs of acute sinusitis. - A peripherally ossified structure extending from the dorsal margin of the right nasolacrimal duct into the right maxillary sinus is stable when compared to examinations dated back to 08/24/2008 favoring a benign etiology. Cervical Spine CT 02/14/23 22:15 IMPRESSION: 1. No acute intracranial abnormality. Stable postsurgical changes with right frontotemporal encephalomalacia, global volume loss, and extraocular dilatation of the right lateral ventricle. 2. No cervical spine fracture or traumatic malalignment. Head CT 02/14/23 22:15 IMPRESSION: 1. No acute intracranial abnormality. Stable postsurgical changes with right frontotemporal encephalomalacia, global volume loss, and extraocular dilatation of the right lateral ventricle. 2. No cervical spine fracture or traumatic malalignment. Hip/Pelvis X-Ray 02/14/23 22:25 IMPRESSION: Moderate degenerative changes of the right hip with loss of superolateral joint space. Similar chronic posttraumatic deformity of the right femoral neck with chronic foreshortening. Status post left total hip arthroplasty in unchanged alignment however the lack of a crosstable lateral view limits assessment for dislocation. No acute fracture or dislocation appreciated on the available views. Foot X-Ray 02/22/23 13:50 IMPRESSION: * Postsurgical changes of arthrodesis first metatarsophalangeal joint. * There is developed large osteophyte from the head of the first metatarsal protruding laterally abutting the head of the second metatarsal. This might be the source of patient's pain. * Underlying degenerative osteoarthritis. Foot X-Ray 02/23/23 14:11 IMPRESSION: Mild degenerative changes MTP, PIP and DIP joints. No visible acute fracture or dislocation seen. Medications Medications Current Medications Acetaminophen (Acetaminophen 325 Mg Tablet) 975 mg PO Q6H PRN PRN Reason: Headache/Pain Mild Scale (1-3) Last Admin: 03/06/23 21:12 Dose: 975 mg Albuterol Sulfate (Albuterol Sulfate 90 Mcg 8 Gm Inhaler) 2 puff INHALE Q6H PRN PRN Reason: Wheezing Alprazolam (Alprazolam 0.5 Mg Tablet) 0.5 mg PO BEDTIME TAZ Last Admin: 03/07/23 20:55 Dose: 0.5 mg Alprazolam (Alprazolam 0.25 Mg Tablet) 0.25 mg PO TID PRN PRN Reason: anxiety/restlessness Last Admin: 03/06/23 09:42 Dose: 0.25 mg Alprazolam (Alprazolam 0.25 Mg Tablet) 0.25 mg PO BID@0830,1330 [facility] Last Admin: 03/07/23 13:54 Dose: 0.25 mg Amlodipine Besylate (Amlodipine Besylate 5 Mg Tablet) 5 mg PO DAILY [facility]; Protocol Last Admin: 03/07/23 08:40 Dose: 5 mg Bisacodyl (Bisacodyl 10 Mg Supp.Rect) 10 mg [place] DAILY PRN PRN Reason: Constipation Clotrimazole (Clotrimazole 1 % Cream 15 Gm Tube) 1 appl TOPICAL BID TAZ; Protocol Last Admin: 03/07/23 21:43 Dose: Not Given Divalproex Sodium (Divalproex Sodium 250 Mg Tablet.Dr) 750 mg PO BEDTIME TAZ Last Admin: 03/07/23 20:56 Dose: 750 mg Guaifenesin/Dextromethorphan (Guaifenesin Dm 100/10/5 Ml 5 Ml Syrup) 5 ml PO Q4H PRN PRN Reason: cough Last Admin: 03/04/23 20:01 Dose: 5 ml Hydrocortisone (Hydrocortisone 1 % Cream 28.35 Gm Tube) 1 appl TOPICAL BID PRN; Protocol PRN Reason: itchy feet Last Admin: 03/05/23 21:44 Dose: 1 appl Hydroxyzine HCl (Hydroxyzine Hcl 25 Mg Tablet) 25 mg PO Q4H PRN PRN Reason: Anxiety Last Admin: 03/06/23 09:42 Dose: 25 mg Ibuprofen (Ibuprofen 600 Mg Tablet) 600 mg PO Q6H PRN PRN Reason: Pain, Moderate (Pain Scale 4-6 Last Admin: 02/28/23 05:59 Dose: 600 mg Lamotrigine (Lamotrigine 100 Mg Tablet) 100 mg PO BID [facility] Last Admin: 03/07/23 20:56 Dose: 100 mg Latanoprost (Latanoprost 0.005 % Ophth No 2.5 Ml Drops) 1 drop EYE-BOTH BEDTIME TAZ Last Admin: 03/07/23 22:02 Dose: 1 drop Lidocaine (Lidocaine 5 % Ointment 35 Gm) 1 appl TOPICAL Q6H PRN; Protocol PRN Reason: pain r foot Last Admin: 03/05/23 21:53 Dose: 1 appl Magnesium Hydroxide (Milk Of Magnesia 30 Ml Oral.Susp) 30 ml PO BID PRN PRN Reason: constipation, stomach/GI upset Multi-Ingred Cream/Lotion/Oil/Oint (Mineral Oil/Petrolatum,White 106 Gm Tube) 1 appl TOPICAL BID PRN; Protocol PRN Reason: dry skin Nortriptyline HCl (Nortriptyline Hcl 25 Mg Capsule) 50 mg PO BEDTIME [facility] Last Admin: 03/07/23 20:56 Dose: 50 mg Nystatin (Nystatin Powder 15 Gm Bottle) 1 appl TOPICAL BID TAZ; Protocol Last Admin: 03/07/23 21:43 Dose: Not Given Olanzapine (Olanzapine 2.5 Mg Tablet) 2.5 mg PO Q4H PRN PRN Reason: anxiety/restlessness Olanzapine (Olanzapine 2.5 Mg Tablet) 2.5 mg PO DAILY [facility] Last Admin: 03/07/23 08:41 Dose: 2.5 mg Olanzapine (Olanzapine 2.5 Mg Tablet) 2.5 mg PO DAILY@1500 [facility] Last Admin: 03/07/23 16:59 Dose: 2.5 mg Olanzapine (Olanzapine 5 Mg Tablet) 5 mg PO BEDTIME TAZ Last Admin: 03/07/23 20:55 Dose: 5 mg Polyethylene Glycol (Polyethylene Glycol 3350 17 Gm Powd.Pack) 17 gm PO BID [facility] Last Admin: 03/07/23 21:00 Dose: Not Given Propranolol HCl (Propranolol Hcl 10 Mg Tablet) 10 mg PO TID [facility]; Protocol Last Admin: 03/07/23 20:55 Dose: 10 mg Senna/Docusate Sodium (Sennosides/Docusate Sodium Tablet) 2 tab PO BEDTIME [facility] Last Admin: 03/07/23 20:56 Dose: 2 tab Sodium Biphosphate/Sodium Phosphate (Sodium Phosphate,[place]-Dibasic 133 Ml Enema) 133 ml [place] ONCE PRN PRN Reason: Constipation Sodium Chloride (Sodium Chloride 0.65 % Nasal 44 Ml Sprbtl) 1 spray NOSTRIL-B Q1H PRN PRN Reason: Nasal Congestion Last Admin: 02/26/23 21:14 Dose: 1 spray Tamsulosin HCl (Tamsulosin Hcl 0.4 Mg Capsule) 0.4 mg PO DAILY [facility] Last Admin: 03/07/23 08:40 Dose: 0.4 mg Trazodone HCl (Trazodone Hcl 100 Mg Tablet) 200 mg PO BEDTIME [facility] Last Admin: 03/07/23 20:55 Dose: 200 mg Venlafaxine HCl (Venlafaxine Hcl Er 75 Mg Cap.Er.24h) 75 mg PO DAILY [facility] Last Admin: 03/07/23 08:40 Dose: 75 mg Allergies Allergies Allergy/AdvReac Type Severity Reaction Status Date / Time fentanyl [FENTANYL] Allergy Intermediate unknown Verified 04/08/22 07:00 Assessment & Plan Assessment & Plan (1) Major depressive disorder, recurrent severe without psychotic features: Status: Acute Code(s): F33.2 - Major depressive disorder, recurrent severe without psychotic features (2) Cognitive and neurobehavioral dysfunction following brain injury: Status: Acute Code(s): G31.89 - Other specified degenerative diseases of nervous system; F09 - Unspecified mental disorder due to known physiological condition; S06.9X9S - Unspecified intracranial injury with loss of consciousness of unspecified duration, sequela Plan ALPRAZOLAM 0.25 B.I.D. 0.5 BEDTIME OLANZAPINE ALSO 3 TIMES A DAY CONTINUE DEPAKOTE START PROPRANOLOL 10 T.I.D. THE PATIENT CONFRONTED REGARDING NEGATIVE TOXIC BEHAVIOR DIFFICULTY COPING AND NEGATIVE COMPLICATIONS TO HIS LIFE IF CONTINUE VERBALLY AGGRESSIVE AND TOXIC BEHAVIOR WITH OTHERS DEVALUATION ENCOURAGE REFLECTION STRESS MANAGEMENT COPING STRATEGIES 03/07 continue same treatment 03/08 continue same treatment Reason for continued inpatient stay Substantial Risk for: inability to function, rapid decompensation and med/psych decompensation Time Spent With Patient Time: Total time managing care of this patient today _20___ minutes.
[2023-03-08] MEDS: Propranolol HCL 10 MG TABLET PO ×3 (09:43→21:33)
[2023-03-08] MEDS: lamoTRIgine 100 MG TABLET PO ×2 (09:43→21:35)
[2023-03-08] MEDS: polyethylene glycoL 3350 17 GM POWD.PACK PO ×2 (09:43→21:42)
[2023-03-08] MEDS: Tamsulosin HCL 0.4 MG CAPSULE PO (09:43)
[2023-03-08] MEDS: ALPRAZolam 0.25 MG TABLET PO ×2 (09:44→13:49)
[2023-03-08] MEDS: OLANZapine 2.5 MG TABLET PO ×2 (09:44→16:41)
[2023-03-08] MEDS: Venlafaxine HCl ER 75 MG CAP.ER.24H PO (09:44)
[2023-03-08] MEDS: amLODIPine Besylate 5 MG TABLET PO (09:48)
[2023-03-08] MEDS: Nystatin Powder 15 GM BOTTLE 1 APPL TOPICAL ×2 (09:49→21:42)
[2023-03-08] MEDS: Lidocaine 5 % Ointment 35 GM 1 APPL TOPICAL ×2 (09:49→21:42)
[2023-03-08] MEDS: Milk of Magnesia 30 ML ORAL.SUSP PO (13:49)
[2023-03-08 18:00] VITALS: BP 142/69; PULSE 67; RESP 18; TEMP 36.2; O2SAT 95
[2023-03-08] MEDS: Divalproex Sodium 250 MG TABLET.DR 750 MG PO (21:31)
[2023-03-08] MEDS: Acetaminophen 325 MG TABLET 975 MG PO (21:32)
[2023-03-08] MEDS: Nortriptyline HCl 25 MG CAPSULE 50 MG PO (21:34)
[2023-03-08] MEDS: traZODone HCL 100 MG TABLET 200 MG PO (21:35)
[2023-03-08] MEDS: Sennosides/Docusate Sodium TABLET 2 TAB PO (21:35)
[2023-03-08] MEDS: OLANZapine 5 MG TABLET PO (21:36)
[2023-03-08] MEDS: ALPRAZolam 0.5 MG TABLET PO (21:36)
[2023-03-08] MEDS: Hydrocortisone 1 % Cream 28.35 GM TUBE 1 APPL TOPICAL (21:42)
[2023-03-09] MEDS: Clotrimazole 1 % Cream 15 GM TUBE 1 APPL TOPICAL ×2 (03:50→20:44)
[2023-03-09] MEDS: Latanoprost 0.005 % Ophth Sol 2.5 ML DROPS 1 DROP EYE-BOTH ×2 (03:51→20:45)
[2023-03-09] MEDS: Venlafaxine HCl ER 75 MG CAP.ER.24H PO (09:13)
[2023-03-09] MEDS: amLODIPine Besylate 5 MG TABLET PO (09:13)
[2023-03-09] MEDS: Tamsulosin HCL 0.4 MG CAPSULE PO (09:13)
[2023-03-09] MEDS: OLANZapine 2.5 MG TABLET PO ×2 (09:14→14:09)
[2023-03-09] MEDS: Propranolol HCL 10 MG TABLET PO ×3 (09:14→20:50)
[2023-03-09] MEDS: lamoTRIgine 100 MG TABLET PO ×2 (09:14→20:50)
[2023-03-09] MEDS: hydrOXYzine HCL 25 MG TABLET PO (09:19)
[2023-03-09] MEDS: ALPRAZolam 0.25 MG TABLET PO ×2 (09:20→13:46)
[2023-03-09 09:22] VITALS: BP 152/74; PULSE 66; RESP 18; TEMP 36.1; O2SAT 96
--- NOTE | 2023-03-09 12:10 | HO.PSYCHPN ---
Subjective Subjective Date of Service: 03/09/23 Reason For Visit: Depression hopelessness irritability Subjective Notes: Conditional Voluntary Interim History: The nursing staff reported the patient had been oppositional, living in office chair. Now his focus in his bowel movements. On interview the patient denies new symptoms. His reports that he has been depressed but it seems that he is mostly acting out since he knows that he is going to be discharged pretty soon. Mental Status Exam Mental Status Exam Patient Appearance: Well Grooomed and Appropriate Patient Orientation: Person and Situation Level of Consciousness: Awake and Appropriate Patient Behavior: Guarded and Passive Mood Description: Withdrawn Affect Description: Constricted Patient Cognition Impaired: Yes Ability to Follow Directions: Good Speech Pattern: Clear Hallucinations: None Delusions: Not Present Thought Process: Distracted and Linear Thought Content: positive for [place] Judgement: Fair Diagnostics Vital Signs (24Hr): Vital Signs - 24 hr 03/08/23 18:00 03/09/23 09:22 Temperature 97.1 F 97.0 F Pulse Rate 67 66 Respiratory Rate 18 18 Blood Pressure 142/69 H 152/74 H Pulse Oximetry 95 96 Oxygen Delivery Method Room Air Room Air BMI result Body Mass Index 30.8 Labs 03/04/23 07:45 03/04/23 07:45 Imaging Radiology Impressions: ITS Impressions Chest X-Ray 10/20/22 15:45 IMPRESSION: 1. Low lung volumes with bibasilar linear disc atelectasis versus scarring. 2. No airspace consolidation or effusion. Head CT 11/08/22 12:29 IMPRESSION: No acute intracranial hemorrhage or territorial infarction. Stable chronic postoperative changes with gliosis and encephalomalacia in the right frontal and right temporal lobes. Ex vacuo dilatation of the ventricles and diffuse parenchymal volume loss. Right-sided craniotomy changes. Chest X-Ray 11/12/22 10:32 IMPRESSION: Hypoexpanded lungs with bibasilar platelike atelectasis. Brain MRI 11/12/22 13:15 IMPRESSION: 1. No demonstrated acute intracranial abnormalities. 2. Chronic encephalomalacia of the right temporal, right frontal, and left occipital lobes. Small regions of chronic encephalomalacia in the parasagittal aspects of the bilateral parietal lobes. Moderate underlying microangiopathy and generalized cerebral volume loss. Chest X-Ray 11/14/22 15:52 IMPRESSION: Low lung volumes, bibasilar subsegmental atelectasis and slight elevation of the right hemidiaphragm similar to previous exam. Modified Barium Swallow 11/21/22 15:11 IMPRESSION: Laryngeal penetration on several occasions but no laryngeal aspiration. Mild retention of solid food in the valleculae which cleared with subsequent oral administration of water or thin barium. Correlate with speech therapy results. Orbit CT 01/23/23 14:05 IMPRESSION: - No definite significant intraorbital soft tissue findings to assessment is limited on a noncontrast CT of the orbits. No retrobulbar mass lesions and no cellulitic changes appreciated. - There are large fluid levels within the left maxillary sinus and within the right frontal sinus the can be correlated for clinical signs of acute sinusitis. - A peripherally ossified structure extending from the dorsal margin of the right nasolacrimal duct into the right maxillary sinus is stable when compared to examinations dated back to 08/24/2008 favoring a benign etiology. Cervical Spine CT 02/14/23 22:15 IMPRESSION: 1. No acute intracranial abnormality. Stable postsurgical changes with right frontotemporal encephalomalacia, global volume loss, and extraocular dilatation of the right lateral ventricle. 2. No cervical spine fracture or traumatic malalignment. Head CT 02/14/23 22:15 IMPRESSION: 1. No acute intracranial abnormality. Stable postsurgical changes with right frontotemporal encephalomalacia, global volume loss, and extraocular dilatation of the right lateral ventricle. 2. No cervical spine fracture or traumatic malalignment. Hip/Pelvis X-Ray 02/14/23 22:25 IMPRESSION: Moderate degenerative changes of the right hip with loss of superolateral joint space. Similar chronic posttraumatic deformity of the right femoral neck with chronic foreshortening. Status post left total hip arthroplasty in unchanged alignment however the lack of a crosstable lateral view limits assessment for dislocation. No acute fracture or dislocation appreciated on the available views. Foot X-Ray 02/22/23 13:50 IMPRESSION: * Postsurgical changes of arthrodesis first metatarsophalangeal joint. * There is developed large osteophyte from the head of the first metatarsal protruding laterally abutting the head of the second metatarsal. This might be the source of patient's pain. * Underlying degenerative osteoarthritis. Foot X-Ray 02/23/23 14:11 IMPRESSION: Mild degenerative changes MTP, PIP and DIP joints. No visible acute fracture or dislocation seen. Medications Medications Current Medications Acetaminophen (Acetaminophen 325 Mg Tablet) 975 mg PO Q6H PRN PRN Reason: Headache/Pain Mild Scale (1-3) Last Admin: 03/08/23 21:32 Dose: 975 mg Albuterol Sulfate (Albuterol Sulfate 90 Mcg 8 Gm Inhaler) 2 puff INHALE Q6H PRN PRN Reason: Wheezing Alprazolam (Alprazolam 0.5 Mg Tablet) 0.5 mg PO BEDTIME TAZ Last Admin: 03/08/23 21:36 Dose: 0.5 mg Alprazolam (Alprazolam 0.25 Mg Tablet) 0.25 mg PO TID PRN PRN Reason: anxiety/restlessness Last Admin: 03/06/23 09:42 Dose: 0.25 mg Alprazolam (Alprazolam 0.25 Mg Tablet) 0.25 mg PO BID@0830,1330 TAZ Last Admin: 03/09/23 09:20 Dose: 0.25 mg Amlodipine Besylate (Amlodipine Besylate 5 Mg Tablet) 5 mg PO DAILY TAZ; Protocol Last Admin: 03/09/23 09:13 Dose: 5 mg Bisacodyl (Bisacodyl 10 Mg Supp.Rect) 10 mg [place] DAILY PRN PRN Reason: Constipation Clotrimazole (Clotrimazole 1 % Cream 15 Gm Tube) 1 appl TOPICAL BID TAZ; Protocol Last Admin: 03/09/23 09:21 Dose: Not Given Divalproex Sodium (Divalproex Sodium 250 Mg Tablet.Dr) 750 mg PO BEDTIME TAZ Last Admin: 03/08/23 21:31 Dose: 750 mg Guaifenesin/Dextromethorphan (Guaifenesin Dm 100/10/5 Ml 5 Ml Syrup) 5 ml PO Q4H PRN PRN Reason: cough Last Admin: 03/04/23 20:01 Dose: 5 ml Hydrocortisone (Hydrocortisone 1 % Cream 28.35 Gm Tube) 1 appl TOPICAL BID PRN; Protocol PRN Reason: itchy feet Last Admin: 03/08/23 21:42 Dose: 1 appl Hydroxyzine HCl (Hydroxyzine Hcl 25 Mg Tablet) 25 mg PO Q4H PRN PRN Reason: Anxiety Last Admin: 03/09/23 09:19 Dose: 25 mg Ibuprofen (Ibuprofen 600 Mg Tablet) 600 mg PO Q6H PRN PRN Reason: Pain, Moderate (Pain Scale 4-6 Last Admin: 02/28/23 05:59 Dose: 600 mg Lamotrigine (Lamotrigine 100 Mg Tablet) 100 mg PO BID [facility] Last Admin: 03/09/23 09:14 Dose: 100 mg Latanoprost (Latanoprost 0.005 % Ophth No 2.5 Ml Drops) 1 drop EYE-BOTH BEDTIME [facility] Last Admin: 03/09/23 03:51 Dose: 1 drop Lidocaine (Lidocaine 5 % Ointment 35 Gm) 1 appl TOPICAL Q6H PRN; Protocol PRN Reason: pain r foot Last Admin: 03/08/23 21:42 Dose: 1 appl Magnesium Hydroxide (Milk Of Magnesia 30 Ml Oral.Susp) 30 ml PO BID PRN PRN Reason: constipation, stomach/GI upset Last Admin: 03/08/23 13:49 Dose: 30 ml Multi-Ingred Cream/Lotion/Oil/Oint (Mineral Oil/Petrolatum,White 106 Gm Tube) 1 appl TOPICAL BID PRN; Protocol PRN Reason: dry skin Nortriptyline HCl (Nortriptyline Hcl 25 Mg Capsule) 50 mg PO BEDTIME [facility] Last Admin: 03/08/23 21:34 Dose: 50 mg Nystatin (Nystatin Powder 15 Gm Bottle) 1 appl TOPICAL BID [facility]; Protocol Last Admin: 03/09/23 09:21 Dose: Not Given Olanzapine (Olanzapine 2.5 Mg Tablet) 2.5 mg PO Q4H PRN PRN Reason: anxiety/restlessness Olanzapine (Olanzapine 2.5 Mg Tablet) 2.5 mg PO DAILY [facility] Last Admin: 03/09/23 09:14 Dose: 2.5 mg Olanzapine (Olanzapine 2.5 Mg Tablet) 2.5 mg PO DAILY@1500 [facility] Last Admin: 03/08/23 16:41 Dose: 2.5 mg Olanzapine (Olanzapine 5 Mg Tablet) 5 mg PO BEDTIME [facility] Last Admin: 03/08/23 21:36 Dose: 5 mg Polyethylene Glycol (Polyethylene Glycol 3350 17 Gm Powd.Pack) 17 gm PO BID [facility] Last Admin: 03/09/23 09:21 Dose: Not Given Propranolol HCl (Propranolol Hcl 10 Mg Tablet) 10 mg PO TID [facility]; Protocol Last Admin: 03/09/23 09:14 Dose: 10 mg Senna/Docusate Sodium (Sennosides/Docusate Sodium Tablet) 2 tab PO BEDTIME [facility] Last Admin: 03/08/23 21:35 Dose: 2 tab Sodium Biphosphate/Sodium Phosphate (Sodium Phosphate,[place]-Dibasic 133 Ml Enema) 133 ml [place] ONCE PRN PRN Reason: Constipation Sodium Chloride (Sodium Chloride 0.65 % Nasal 44 Ml Sprbtl) 1 spray NOSTRIL-B Q1H PRN PRN Reason: Nasal Congestion Last Admin: 02/26/23 21:14 Dose: 1 spray Tamsulosin HCl (Tamsulosin Hcl 0.4 Mg Capsule) 0.4 mg PO DAILY [facility] Last Admin: 03/09/23 09:13 Dose: 0.4 mg Trazodone HCl (Trazodone Hcl 100 Mg Tablet) 200 mg PO BEDTIME [facility] Last Admin: 03/08/23 21:35 Dose: 200 mg Venlafaxine HCl (Venlafaxine Hcl Er 75 Mg Cap.Er.24h) 75 mg PO DAILY [facility] Last Admin: 03/09/23 09:13 Dose: 75 mg Allergies Allergies Allergy/AdvReac Type Severity Reaction Status Date / Time fentanyl [FENTANYL] Allergy Intermediate unknown Verified 04/08/22 07:00 Assessment & Plan Assessment & Plan (1) Major depressive disorder, recurrent severe without psychotic features: Status: Acute Code(s): F33.2 - Major depressive disorder, recurrent severe without psychotic features (2) Cognitive and neurobehavioral dysfunction following brain injury: Status: Acute Code(s): G31.89 - Other specified degenerative diseases of nervous system; F09 - Unspecified mental disorder due to known physiological condition; S06.9X9S - Unspecified intracranial injury with loss of consciousness of unspecified duration, sequela Plan ALPRAZOLAM 0.25 B.I.D. 0.5 BEDTIME OLANZAPINE ALSO 3 TIMES A DAY CONTINUE DEPAKOTE START PROPRANOLOL 10 T.I.D. THE PATIENT CONFRONTED REGARDING NEGATIVE TOXIC BEHAVIOR DIFFICULTY COPING AND NEGATIVE COMPLICATIONS TO HIS LIFE IF CONTINUE VERBALLY AGGRESSIVE AND TOXIC BEHAVIOR WITH OTHERS DEVALUATION ENCOURAGE REFLECTION STRESS MANAGEMENT COPING STRATEGIES 03/07 continue same treatment 03/08 continue same treatment 03/09 continue same treatment Reason for continued inpatient stay Substantial Risk for: inability to function, rapid decompensation and med/psych decompensation Time Spent With Patient Time: Total time managing care of this patient today __20__ minutes.
[2023-03-09 14:13] VITALS: BP 134/68; PULSE 62
[2023-03-09 18:00] VITALS: BP 141/72; PULSE 62; RESP 16; TEMP 36.6; O2SAT 98
[2023-03-09] MEDS: Lidocaine 5 % Ointment 35 GM 1 APPL TOPICAL (20:43)
[2023-03-09] MEDS: Hydrocortisone 1 % Cream 28.35 GM TUBE 1 APPL TOPICAL (20:43)
[2023-03-09] MEDS: Nystatin Powder 15 GM BOTTLE 1 APPL TOPICAL (20:44)
[2023-03-09] MEDS: polyethylene glycoL 3350 17 GM POWD.PACK PO (20:46)
[2023-03-09] MEDS: ALPRAZolam 0.5 MG TABLET PO (20:48)
[2023-03-09] MEDS: Sennosides/Docusate Sodium TABLET 2 TAB PO (20:48)
[2023-03-09] MEDS: Nortriptyline HCl 25 MG CAPSULE 50 MG PO (20:49)
[2023-03-09] MEDS: traZODone HCL 100 MG TABLET 200 MG PO (20:49)
[2023-03-09] MEDS: Divalproex Sodium 250 MG TABLET.DR 750 MG PO (20:50)
[2023-03-09] MEDS: OLANZapine 5 MG TABLET PO (20:51)
[2023-03-10 06:00] VITALS: BP 154/91; PULSE 74; RESP 18; TEMP 36.2; O2SAT 99
[2023-03-10] MEDS: Acetaminophen 325 MG TABLET 975 MG PO (06:04)
[2023-03-10] MEDS: ALPRAZolam 0.25 MG TABLET PO ×3 (06:05→14:01)
[2023-03-10] MEDS: amLODIPine Besylate 5 MG TABLET PO (10:48)
[2023-03-10] MEDS: Tamsulosin HCL 0.4 MG CAPSULE PO (10:48)
[2023-03-10] MEDS: OLANZapine 2.5 MG TABLET PO (10:49)
[2023-03-10] MEDS: lamoTRIgine 100 MG TABLET PO ×2 (10:49→21:28)
[2023-03-10] MEDS: Propranolol HCL 10 MG TABLET PO ×3 (10:49→21:27)
[2023-03-10] MEDS: Venlafaxine HCl ER 75 MG CAP.ER.24H PO (10:50)
[2023-03-10] MEDS: polyethylene glycoL 3350 17 GM POWD.PACK PO (10:50)
--- NOTE | 2023-03-10 18:42 | PC.NURSE ---
pt very sedated-slurring some words and slipping sl on wc Dr Haskins here and informed 170 zyprexa held increased sedation
[2023-03-10 20:45] VITALS: BP 144/76; PULSE 60; RESP 18; TEMP 36.1; O2SAT 98
[2023-03-10] MEDS: Clotrimazole 1 % Cream 15 GM TUBE 1 APPL TOPICAL (21:27)
[2023-03-10] MEDS: Nortriptyline HCl 25 MG CAPSULE 50 MG PO (21:27)
[2023-03-10] MEDS: Latanoprost 0.005 % Ophth Sol 2.5 ML DROPS 1 DROP EYE-BOTH (21:27)
[2023-03-10] MEDS: ALPRAZolam 0.5 MG TABLET PO (21:28)
[2023-03-10] MEDS: Divalproex Sodium 250 MG TABLET.DR 750 MG PO (21:28)
[2023-03-10] MEDS: traZODone HCL 100 MG TABLET 200 MG PO (21:28)
[2023-03-10] MEDS: Sennosides/Docusate Sodium TABLET 2 TAB PO (21:29)
[2023-03-10] MEDS: OLANZapine 5 MG TABLET PO (21:29)
--- NOTE | 2023-03-10 21:32 | HO.PSYCHPN ---
Subjective Subjective Date of Service: 03/10/23 Reason For Visit: Depression hopelessness irritability Subjective Notes: Conditional Voluntary Guardianship: No Medical Problems Affecting Mental Status: No Interim History: pt has been somewhat sedated periods of irritability ? less reactive with propranolol Medication Compliance: Yes Mental Status Exam Mental Status Exam Patient Appearance: Fatigued and Appropriate Patient Orientation: Person, Place and Situation Level of Consciousness: Awake Patient Behavior: Guarded, Passive, Fatigued and Distractible Mood Description: Withdrawn and Anxious Affect Description: Constricted and Nervous Patient Cognition Impaired: Yes Ability to Follow Directions: Good Speech Pattern: Clear and Slurred Memory Description: Intact Hallucinations: None Delusions: Not Present Thought Process: Distracted and Linear Thought Content: positive for [place] and positive for Preoccupation Depressive Symptoms: Increased Anxiety and Increased Irritability Judgement: Fair Diagnostics Vital Signs (24Hr): Vital Signs - 24 hr 03/10/23 06:00 Temperature 97.2 F Pulse Rate 74 Respiratory Rate 18 Blood Pressure 154/91 H Pulse Oximetry 99 Oxygen Delivery Method Room Air BMI result Body Mass Index 30.8 Labs 03/04/23 07:45 03/04/23 07:45 Imaging Radiology Impressions: ITS Impressions Chest X-Ray 10/20/22 15:45 IMPRESSION: 1. Low lung volumes with bibasilar linear disc atelectasis versus scarring. 2. No airspace consolidation or effusion. Head CT 11/08/22 12:29 IMPRESSION: No acute intracranial hemorrhage or territorial infarction. Stable chronic postoperative changes with gliosis and encephalomalacia in the right frontal and right temporal lobes. Ex vacuo dilatation of the ventricles and diffuse parenchymal volume loss. Right-sided craniotomy changes. Chest X-Ray 11/12/22 10:32 IMPRESSION: Hypoexpanded lungs with bibasilar platelike atelectasis. Brain MRI 11/12/22 13:15 IMPRESSION: 1. No demonstrated acute intracranial abnormalities. 2. Chronic encephalomalacia of the right temporal, right frontal, and left occipital lobes. Small regions of chronic encephalomalacia in the parasagittal aspects of the bilateral parietal lobes. Moderate underlying microangiopathy and generalized cerebral volume loss. Chest X-Ray 11/14/22 15:52 IMPRESSION: Low lung volumes, bibasilar subsegmental atelectasis and slight elevation of the right hemidiaphragm similar to previous exam. Modified Barium Swallow 11/21/22 15:11 IMPRESSION: Laryngeal penetration on several occasions but no laryngeal aspiration. Mild retention of solid food in the valleculae which cleared with subsequent oral administration of water or thin barium. Correlate with speech therapy results. Orbit CT 01/23/23 14:05 IMPRESSION: - No definite significant intraorbital soft tissue findings to assessment is limited on a noncontrast CT of the orbits. No retrobulbar mass lesions and no cellulitic changes appreciated. - There are large fluid levels within the left maxillary sinus and within the right frontal sinus the can be correlated for clinical signs of acute sinusitis. - A peripherally ossified structure extending from the dorsal margin of the right nasolacrimal duct into the right maxillary sinus is stable when compared to examinations dated back to 08/24/2008 favoring a benign etiology. Cervical Spine CT 02/14/23 22:15 IMPRESSION: 1. No acute intracranial abnormality. Stable postsurgical changes with right frontotemporal encephalomalacia, global volume loss, and extraocular dilatation of the right lateral ventricle. 2. No cervical spine fracture or traumatic malalignment. Head CT 02/14/23 22:15 IMPRESSION: 1. No acute intracranial abnormality. Stable postsurgical changes with right frontotemporal encephalomalacia, global volume loss, and extraocular dilatation of the right lateral ventricle. 2. No cervical spine fracture or traumatic malalignment. Hip/Pelvis X-Ray 02/14/23 22:25 IMPRESSION: Moderate degenerative changes of the right hip with loss of superolateral joint space. Similar chronic posttraumatic deformity of the right femoral neck with chronic foreshortening. Status post left total hip arthroplasty in unchanged alignment however the lack of a crosstable lateral view limits assessment for dislocation. No acute fracture or dislocation appreciated on the available views. Foot X-Ray 02/22/23 13:50 IMPRESSION: * Postsurgical changes of arthrodesis first metatarsophalangeal joint. * There is developed large osteophyte from the head of the first metatarsal protruding laterally abutting the head of the second metatarsal. This might be the source of patient's pain. * Underlying degenerative osteoarthritis. Foot X-Ray 02/23/23 14:11 IMPRESSION: Mild degenerative changes MTP, PIP and DIP joints. No visible acute fracture or dislocation seen. Medications Medications Current Medications Acetaminophen (Acetaminophen 325 Mg Tablet) 975 mg PO Q6H PRN PRN Reason: Headache/Pain Mild Scale (1-3) Last Admin: 03/10/23 06:04 Dose: 975 mg Albuterol Sulfate (Albuterol Sulfate 90 Mcg 8 Gm Inhaler) 2 puff INHALE Q6H PRN PRN Reason: Wheezing Alprazolam (Alprazolam 0.5 Mg Tablet) 0.5 mg PO BEDTIME TAZ Last Admin: 03/09/23 20:48 Dose: 0.5 mg Alprazolam (Alprazolam 0.25 Mg Tablet) 0.125 mg PO BID@0830,1330 TA[facility] Amlodipine Besylate (Amlodipine Besylate 5 Mg Tablet) 5 mg PO DAILY [facility]; Protocol Last Admin: 03/10/23 10:48 Dose: 5 mg Bisacodyl (Bisacodyl 10 Mg Supp.Rect) 10 mg [place] DAILY PRN PRN Reason: Constipation Clotrimazole (Clotrimazole 1 % Cream 15 Gm Tube) 1 appl TOPICAL BID [facility]; Protocol Last Admin: 03/10/23 10:55 Dose: Not Given Divalproex Sodium (Divalproex Sodium 250 Mg Tablet.Dr) 750 mg PO BEDTIME [facility] Last Admin: 03/09/23 20:50 Dose: 750 mg Guaifenesin/Dextromethorphan (Guaifenesin Dm 100/10/5 Ml 5 Ml Syrup) 5 ml PO Q4H PRN PRN Reason: cough Last Admin: 03/04/23 20:01 Dose: 5 ml Hydrocortisone (Hydrocortisone 1 % Cream 28.35 Gm Tube) 1 appl TOPICAL BID PRN; Protocol PRN Reason: itchy feet Last Admin: 03/09/23 20:43 Dose: 1 appl Hydroxyzine HCl (Hydroxyzine Hcl 25 Mg Tablet) 25 mg PO Q4H PRN PRN Reason: Anxiety Last Admin: 03/09/23 09:19 Dose: 25 mg Ibuprofen (Ibuprofen 600 Mg Tablet) 600 mg PO Q6H PRN PRN Reason: Pain, Moderate (Pain Scale 4-6 Last Admin: 02/28/23 05:59 Dose: 600 mg Lamotrigine (Lamotrigine 100 Mg Tablet) 100 mg PO BID [facility] Last Admin: 03/10/23 10:49 Dose: 100 mg Latanoprost (Latanoprost 0.005 % Ophth No 2.5 Ml Drops) 1 drop EYE-BOTH BEDTIME [facility] Last Admin: 03/09/23 20:45 Dose: 1 drop Lidocaine (Lidocaine 5 % Ointment 35 Gm) 1 appl TOPICAL Q6H PRN; Protocol PRN Reason: pain r foot Last Admin: 03/09/23 20:43 Dose: 1 appl Magnesium Hydroxide (Milk Of Magnesia 30 Ml Oral.Susp) 30 ml PO BID PRN PRN Reason: constipation, stomach/GI upset Last Admin: 03/08/23 13:49 Dose: 30 ml Multi-Ingred Cream/Lotion/Oil/Oint (Mineral Oil/Petrolatum,White 106 Gm Tube) 1 appl TOPICAL BID PRN; Protocol PRN Reason: dry skin Nortriptyline HCl (Nortriptyline Hcl 25 Mg Capsule) 50 mg PO BEDTIME TAZ Last Admin: 03/09/23 20:49 Dose: 50 mg Nystatin (Nystatin Powder 15 Gm Bottle) 1 appl TOPICAL BID [facility]; Protocol Last Admin: 03/10/23 10:55 Dose: Not Given Olanzapine (Olanzapine 2.5 Mg Tablet) 2.5 mg PO Q4H PRN PRN Reason: anxiety/restlessness Olanzapine (Olanzapine 2.5 Mg Tablet) 2.5 mg PO DAILY TAZ Last Admin: 03/10/23 10:49 Dose: 2.5 mg Olanzapine (Olanzapine 5 Mg Tablet) 5 mg PO BEDTIME [facility]Z Last Admin: 03/09/23 20:51 Dose: 5 mg Polyethylene Glycol (Polyethylene Glycol 3350 17 Gm Powd.Pack) 17 gm PO BID [facility] Last Admin: 03/10/23 10:50 Dose: 17 gm Propranolol HCl (Propranolol Hcl 10 Mg Tablet) 10 mg PO TID [facility]; Protocol Last Admin: 03/10/23 15:35 Dose: 10 mg Senna/Docusate Sodium (Sennosides/Docusate Sodium Tablet) 2 tab PO BEDTIME [facility] Last Admin: 03/09/23 20:48 Dose: 2 tab Sodium Biphosphate/Sodium Phosphate (Sodium Phosphate,[place]-Dibasic 133 Ml Enema) 133 ml [place] ONCE PRN PRN Reason: Constipation Sodium Chloride (Sodium Chloride 0.65 % Nasal 44 Ml Sprbtl) 1 spray NOSTRIL-B Q1H PRN PRN Reason: Nasal Congestion Last Admin: 02/26/23 21:14 Dose: 1 spray Tamsulosin HCl (Tamsulosin Hcl 0.4 Mg Capsule) 0.4 mg PO DAILY [facility] Last Admin: 03/10/23 10:48 Dose: 0.4 mg Trazodone HCl (Trazodone Hcl 100 Mg Tablet) 200 mg PO BEDTIME [facility] Last Admin: 03/09/23 20:49 Dose: 200 mg Venlafaxine HCl (Venlafaxine Hcl Er 75 Mg Cap.Er.24h) 75 mg PO DAILY [facility] Last Admin: 03/10/23 10:50 Dose: 75 mg Allergies Allergies Allergy/AdvReac Type Severity Reaction Status Date / Time fentanyl [FENTANYL] Allergy Intermediate unknown Verified 04/08/22 07:00 Assessment & Plan Assessment & Plan (1) Major depressive disorder, recurrent severe without psychotic features: Status: Acute Code(s): F33.2 - Major depressive disorder, recurrent severe without psychotic features (2) Cognitive and neurobehavioral dysfunction following brain injury: Status: Acute Code(s): G31.89 - Other specified degenerative diseases of nervous system; F09 - Unspecified mental disorder due to known physiological condition; S06.9X9S - Unspecified intracranial injury with loss of consciousness of unspecified duration, sequela Plan ALPRAZOLAM 0.25 B.I.D. 0.5 BEDTIME OLANZAPINE ALSO 3 TIMES A DAY CONTINUE DEPAKOTE START PROPRANOLOL 10 T.I.D. THE PATIENT CONFRONTED REGARDING NEGATIVE TOXIC BEHAVIOR DIFFICULTY COPING AND NEGATIVE COMPLICATIONS TO HIS LIFE IF CONTINUE VERBALLY AGGRESSIVE AND TOXIC BEHAVIOR WITH OTHERS DEVALUATION ENCOURAGE REFLECTION STRESS MANAGEMENT COPING STRATEGIES 03/07 continue same treatment 03/08 continue same treatment 03/09 continue same treatment 03/10/23 Lower alprazolam .125 mg bid hold afternoon olanzapine secondary to slurring oversedation cont propranolol Reason for continued inpatient stay Substantial Risk for: inability to function Time Spent With Patient Time: Total time managing care of this patient today ____ minutes.
[2023-03-11 06:00] VITALS: BP 140/70; PULSE 68; RESP 16; TEMP -12.7; TEMP 9.2; O2SAT 98
--- NOTE | 2023-03-11 08:56 | HO.PSYCHPN ---
Subjective Subjective Date of Service: 03/11/23 Reason For Visit: Depression hopelessness irritability Subjective Notes: Conditional Voluntary Attending Groups: Intermittent Mental Status Exam Mental Status Exam Patient Appearance: Fatigued and Appropriate Patient Orientation: Person, Place and Situation Level of Consciousness: Awake Patient Behavior: Guarded, Passive, Fatigued and Distractible Mood Description: Withdrawn and Anxious Affect Description: Constricted and Nervous Patient Cognition Impaired: Yes Ability to Follow Directions: Good Speech Pattern: Clear and Slurred Memory Description: Intact Hallucinations: None Delusions: Not Present Thought Process: Distracted and Linear Thought Content: positive for [place] and positive for Preoccupation Depressive Symptoms: Increased Anxiety and Increased Irritability Judgement: Fair Diagnostics Vital Signs (24Hr): Vital Signs - 24 hr 03/10/23 20:45 03/11/23 06:00 Temperature 97 F 9.2 F L Pulse Rate 60 68 Respiratory Rate 18 16 Blood Pressure 144/76 H 140/70 H Pulse Oximetry 98 98 Oxygen Delivery Method Room Air Room Air BMI result Body Mass Index 30.8 Labs 03/04/23 07:45 03/04/23 07:45 Imaging Radiology Impressions: ITS Impressions Chest X-Ray 10/20/22 15:45 IMPRESSION: 1. Low lung volumes with bibasilar linear disc atelectasis versus scarring. 2. No airspace consolidation or effusion. Head CT 11/08/22 12:29 IMPRESSION: No acute intracranial hemorrhage or territorial infarction. Stable chronic postoperative changes with gliosis and encephalomalacia in the right frontal and right temporal lobes. Ex vacuo dilatation of the ventricles and diffuse parenchymal volume loss. Right-sided craniotomy changes. Chest X-Ray 11/12/22 10:32 IMPRESSION: Hypoexpanded lungs with bibasilar platelike atelectasis. Brain MRI 11/12/22 13:15 IMPRESSION: 1. No demonstrated acute intracranial abnormalities. 2. Chronic encephalomalacia of the right temporal, right frontal, and left occipital lobes. Small regions of chronic encephalomalacia in the parasagittal aspects of the bilateral parietal lobes. Moderate underlying microangiopathy and generalized cerebral volume loss. Chest X-Ray 11/14/22 15:52 IMPRESSION: Low lung volumes, bibasilar subsegmental atelectasis and slight elevation of the right hemidiaphragm similar to previous exam. Modified Barium Swallow 11/21/22 15:11 IMPRESSION: Laryngeal penetration on several occasions but no laryngeal aspiration. Mild retention of solid food in the valleculae which cleared with subsequent oral administration of water or thin barium. Correlate with speech therapy results. Orbit CT 01/23/23 14:05 IMPRESSION: - No definite significant intraorbital soft tissue findings to assessment is limited on a noncontrast CT of the orbits. No retrobulbar mass lesions and no cellulitic changes appreciated. - There are large fluid levels within the left maxillary sinus and within the right frontal sinus the can be correlated for clinical signs of acute sinusitis. - A peripherally ossified structure extending from the dorsal margin of the right nasolacrimal duct into the right maxillary sinus is stable when compared to examinations dated back to 08/24/2008 favoring a benign etiology. Cervical Spine CT 02/14/23 22:15 IMPRESSION: 1. No acute intracranial abnormality. Stable postsurgical changes with right frontotemporal encephalomalacia, global volume loss, and extraocular dilatation of the right lateral ventricle. 2. No cervical spine fracture or traumatic malalignment. Head CT 02/14/23 22:15 IMPRESSION: 1. No acute intracranial abnormality. Stable postsurgical changes with right frontotemporal encephalomalacia, global volume loss, and extraocular dilatation of the right lateral ventricle. 2. No cervical spine fracture or traumatic malalignment. Hip/Pelvis X-Ray 02/14/23 22:25 IMPRESSION: Moderate degenerative changes of the right hip with loss of superolateral joint space. Similar chronic posttraumatic deformity of the right femoral neck with chronic foreshortening. Status post left total hip arthroplasty in unchanged alignment however the lack of a crosstable lateral view limits assessment for dislocation. No acute fracture or dislocation appreciated on the available views. Foot X-Ray 02/22/23 13:50 IMPRESSION: * Postsurgical changes of arthrodesis first metatarsophalangeal joint. * There is developed large osteophyte from the head of the first metatarsal protruding laterally abutting the head of the second metatarsal. This might be the source of patient's pain. * Underlying degenerative osteoarthritis. Foot X-Ray 02/23/23 14:11 IMPRESSION: Mild degenerative changes MTP, PIP and DIP joints. No visible acute fracture or dislocation seen. Medications Medications Current Medications Acetaminophen (Acetaminophen 325 Mg Tablet) 975 mg PO Q6H PRN PRN Reason: Headache/Pain Mild Scale (1-3) Last Admin: 03/10/23 06:04 Dose: 975 mg Albuterol Sulfate (Albuterol Sulfate 90 Mcg 8 Gm Inhaler) 2 puff INHALE Q6H PRN PRN Reason: Wheezing Alprazolam (Alprazolam 0.5 Mg Tablet) 0.5 mg PO BEDTIME [facility] Last Admin: 03/10/23 21:28 Dose: 0.5 mg Alprazolam (Alprazolam 0.25 Mg Tablet) 0.125 mg PO BID@0830,1330 [facility] Amlodipine Besylate (Amlodipine Besylate 5 Mg Tablet) 5 mg PO DAILY [facility]; Protocol Last Admin: 03/10/23 10:48 Dose: 5 mg Bisacodyl (Bisacodyl 10 Mg Supp.Rect) 10 mg NV DAILY PRN PRN Reason: Constipation Clotrimazole (Clotrimazole 1 % Cream 15 Gm Tube) 1 appl TOPICAL BID [facility]; Protocol Last Admin: 03/10/23 21:27 Dose: 1 appl Divalproex Sodium (Divalproex Sodium 250 Mg Tablet.Dr) 750 mg PO BEDTIME [facility] Last Admin: 03/10/23 21:28 Dose: 750 mg Guaifenesin/Dextromethorphan (Guaifenesin Dm 100/10/5 Ml 5 Ml Syrup) 5 ml PO Q4H PRN PRN Reason: cough Last Admin: 03/04/23 20:01 Dose: 5 ml Hydrocortisone (Hydrocortisone 1 % Cream 28.35 Gm Tube) 1 appl TOPICAL BID PRN; Protocol PRN Reason: itchy feet Last Admin: 03/09/23 20:43 Dose: 1 appl Hydroxyzine HCl (Hydroxyzine Hcl 25 Mg Tablet) 25 mg PO Q4H PRN PRN Reason: Anxiety Last Admin: 03/09/23 09:19 Dose: 25 mg Ibuprofen (Ibuprofen 600 Mg Tablet) 600 mg PO Q6H PRN PRN Reason: Pain, Moderate (Pain Scale 4-6 Last Admin: 02/28/23 05:59 Dose: 600 mg Lamotrigine (Lamotrigine 100 Mg Tablet) 100 mg PO BID [facility] Last Admin: 03/10/23 21:28 Dose: 100 mg Latanoprost (Latanoprost 0.005 % Ophth No 2.5 Ml Drops) 1 drop EYE-BOTH BEDTIME [facility] Last Admin: 03/10/23 21:27 Dose: 1 drop Lidocaine (Lidocaine 5 % Ointment 35 Gm) 1 appl TOPICAL Q6H PRN; Protocol PRN Reason: pain r foot Last Admin: 03/09/23 20:43 Dose: 1 appl Magnesium Hydroxide (Milk Of Magnesia 30 Ml Oral.Susp) 30 ml PO BID PRN PRN Reason: constipation, stomach/GI upset Last Admin: 03/08/23 13:49 Dose: 30 ml Multi-Ingred Cream/Lotion/Oil/Oint (Mineral Oil/Petrolatum,White 106 Gm Tube) 1 appl TOPICAL BID PRN; Protocol PRN Reason: dry skin Nortriptyline HCl (Nortriptyline Hcl 25 Mg Capsule) 50 mg PO BEDTIME [facility] Last Admin: 03/10/23 21:27 Dose: 50 mg Nystatin (Nystatin Powder 15 Gm Bottle) 1 appl TOPICAL BID [facility]; Protocol Last Admin: 03/10/23 22:03 Dose: Not Given Olanzapine (Olanzapine 2.5 Mg Tablet) 2.5 mg PO Q4H PRN PRN Reason: anxiety/restlessness Olanzapine (Olanzapine 2.5 Mg Tablet) 2.5 mg PO DAILY [facility] Last Admin: 03/10/23 10:49 Dose: 2.5 mg Olanzapine (Olanzapine 5 Mg Tablet) 5 mg PO BEDTIME [facility] Last Admin: 03/10/23 21:29 Dose: 5 mg Polyethylene Glycol (Polyethylene Glycol 3350 17 Gm Powd.Pack) 17 gm PO BID [facility] Last Admin: 03/10/23 21:30 Dose: Not Given Propranolol HCl (Propranolol Hcl 10 Mg Tablet) 10 mg PO TID [facility]; Protocol Last Admin: 03/10/23 21:27 Dose: 10 mg Senna/Docusate Sodium (Sennosides/Docusate Sodium Tablet) 2 tab PO BEDTIME [facility] Last Admin: 03/10/23 21:29 Dose: 2 tab Sodium Biphosphate/Sodium Phosphate (Sodium Phosphate,[place]-Dibasic 133 Ml Enema) 133 ml NV ONCE PRN PRN Reason: Constipation Sodium Chloride (Sodium Chloride 0.65 % Nasal 44 Ml Sprbtl) 1 spray NOSTRIL-B Q1H PRN PRN Reason: Nasal Congestion Last Admin: 02/26/23 21:14 Dose: 1 spray Tamsulosin HCl (Tamsulosin Hcl 0.4 Mg Capsule) 0.4 mg PO DAILY [facility] Last Admin: 03/10/23 10:48 Dose: 0.4 mg Trazodone HCl (Trazodone Hcl 100 Mg Tablet) 200 mg PO BEDTIME [facility] Last Admin: 03/10/23 21:28 Dose: 200 mg Venlafaxine HCl (Venlafaxine Hcl Er 75 Mg Cap.Er.24h) 75 mg PO DAILY [facility] Last Admin: 03/10/23 10:50 Dose: 75 mg Allergies Allergies Allergy/AdvReac Type Severity Reaction Status Date / Time fentanyl [FENTANYL] Allergy Intermediate unknown Verified 04/08/22 07:00 Assessment & Plan Assessment & Plan (1) Major depressive disorder, recurrent severe without psychotic features: Status: Acute Code(s): F33.2 - Major depressive disorder, recurrent severe without psychotic features (2) Cognitive and neurobehavioral dysfunction following brain injury: Status: Acute Code(s): G31.89 - Other specified degenerative diseases of nervous system; F09 - Unspecified mental disorder due to known physiological condition; S06.9X9S - Unspecified intracranial injury with loss of consciousness of unspecified duration, sequela Plan ALPRAZOLAM 0.25 B.I.D. 0.5 BEDTIME OLANZAPINE ALSO 3 TIMES A DAY CONTINUE DEPAKOTE START PROPRANOLOL 10 T.I.D. THE PATIENT CONFRONTED REGARDING NEGATIVE TOXIC BEHAVIOR DIFFICULTY COPING AND NEGATIVE COMPLICATIONS TO HIS LIFE IF CONTINUE VERBALLY AGGRESSIVE AND TOXIC BEHAVIOR WITH OTHERS DEVALUATION ENCOURAGE REFLECTION STRESS MANAGEMENT COPING STRATEGIES 03/07 continue same treatment 03/08 continue same treatment 03/09 continue same treatment 03/10/23 Lower alprazolam .125 mg bid hold afternoon olanzapine secondary to slurring oversedation cont propranolol 03/11/23 Pt doing better less sedated struggles to maintain pos attitude Reason for continued inpatient stay Substantial Risk for: inability to function and rapid decompensation Time Spent With Patient Time: Total time managing care of this patient today ____ minutes.
[2023-03-11] MEDS: lamoTRIgine 100 MG TABLET PO ×2 (10:27→21:01)
[2023-03-11] MEDS: Propranolol HCL 10 MG TABLET PO ×3 (10:27→21:02)
[2023-03-11] MEDS: amLODIPine Besylate 5 MG TABLET PO (10:27)
[2023-03-11] MEDS: Tamsulosin HCL 0.4 MG CAPSULE PO (10:27)
[2023-03-11] MEDS: ALPRAZolam 0.25 MG TABLET PO (10:28)
[2023-03-11] MEDS: ALPRAZolam 0.25 MG TABLET 0.125 MG PO ×2 (10:28→15:48)
[2023-03-11] MEDS: Venlafaxine HCl ER 75 MG CAP.ER.24H PO (10:29)
[2023-03-11] MEDS: OLANZapine 2.5 MG TABLET PO (10:30)
[2023-03-11 18:00] VITALS: BP 172/77; PULSE 63; RESP 18; TEMP 36.3; O2SAT 99
[2023-03-11] MEDS: Latanoprost 0.005 % Ophth Sol 2.5 ML DROPS 1 DROP EYE-BOTH (21:01)
[2023-03-11] MEDS: OLANZapine 5 MG TABLET PO (21:01)
[2023-03-11] MEDS: ALPRAZolam 0.5 MG TABLET PO (21:01)
[2023-03-11] MEDS: traZODone HCL 100 MG TABLET 200 MG PO (21:01)
[2023-03-11] MEDS: Divalproex Sodium 250 MG TABLET.DR 750 MG PO (21:01)
[2023-03-11] MEDS: Nystatin Powder 15 GM BOTTLE 1 APPL TOPICAL (21:02)
[2023-03-11] MEDS: Nortriptyline HCl 25 MG CAPSULE 50 MG PO (21:02)
[2023-03-11] MEDS: Sennosides/Docusate Sodium TABLET 2 TAB PO (21:02)
[2023-03-11] MEDS: Clotrimazole 1 % Cream 15 GM TUBE 1 APPL TOPICAL (21:03)
[2023-03-11] MEDS: Lidocaine 5 % Ointment 35 GM 1 APPL TOPICAL (21:10)
[2023-03-12 06:00] VITALS: BP 129/64; PULSE 70; RESP 18; TEMP 36.2; O2SAT 94
[2023-03-12] MEDS: polyethylene glycoL 3350 17 GM POWD.PACK PO (08:40)
[2023-03-12] MEDS: amLODIPine Besylate 5 MG TABLET PO (08:40)
[2023-03-12] MEDS: Venlafaxine HCl ER 75 MG CAP.ER.24H PO (08:40)
[2023-03-12] MEDS: ALPRAZolam 0.25 MG TABLET 0.125 MG PO ×2 (08:41→13:30)
[2023-03-12] MEDS: Propranolol HCL 10 MG TABLET PO ×3 (08:41→21:41)
[2023-03-12] MEDS: lamoTRIgine 100 MG TABLET PO ×2 (08:41→21:41)
[2023-03-12] MEDS: OLANZapine 2.5 MG TABLET PO (08:41)
[2023-03-12] MEDS: Tamsulosin HCL 0.4 MG CAPSULE PO (08:41)
[2023-03-12] MEDS: Artificial Tears 15 ML DROPS 1 DROP EYE-BOTH (14:35)
[2023-03-12] MEDS: Ibuprofen 600 MG TABLET PO (17:29)
[2023-03-12 18:00] VITALS: BP 131/65; PULSE 65; RESP 18; TEMP 37.1; O2SAT 95
[2023-03-12] MEDS: ALPRAZolam 0.5 MG TABLET PO (21:37)
[2023-03-12] MEDS: OLANZapine 5 MG TABLET PO (21:38)
[2023-03-12] MEDS: Divalproex Sodium 250 MG TABLET.DR 750 MG PO (21:38)
[2023-03-12] MEDS: Nortriptyline HCl 25 MG CAPSULE 50 MG PO (21:38)
[2023-03-12] MEDS: traZODone HCL 100 MG TABLET 200 MG PO (21:42)
[2023-03-12] MEDS: Sennosides/Docusate Sodium TABLET 2 TAB PO (21:42)
[2023-03-12] MEDS: Nystatin Powder 15 GM BOTTLE 1 APPL TOPICAL (21:43)
[2023-03-12] MEDS: Latanoprost 0.005 % Ophth Sol 2.5 ML DROPS 1 DROP EYE-BOTH (21:43)
[2023-03-12] MEDS: Clotrimazole 1 % Cream 15 GM TUBE 1 APPL TOPICAL (21:43)
[2023-03-13] MEDS: guaiFENesin DM 100/10/5 ML 5 ML SYRUP PO (03:34)
[2023-03-13 08:00] VITALS: BP 131/75; PULSE 71; RESP 16; TEMP 36.1; O2SAT 97
[2023-03-13] MEDS: polyethylene glycoL 3350 17 GM POWD.PACK PO (08:09)
[2023-03-13] MEDS: Propranolol HCL 10 MG TABLET PO ×3 (08:11→21:45)
[2023-03-13] MEDS: Venlafaxine HCl ER 75 MG CAP.ER.24H PO (08:11)
[2023-03-13] MEDS: ALPRAZolam 0.25 MG TABLET 0.125 MG PO ×2 (08:11→12:39)
[2023-03-13] MEDS: amLODIPine Besylate 5 MG TABLET PO (08:11)
[2023-03-13] MEDS: OLANZapine 2.5 MG TABLET PO ×2 (08:12→14:08)
[2023-03-13] MEDS: lamoTRIgine 100 MG TABLET PO ×2 (08:12→21:48)
[2023-03-13] MEDS: Tamsulosin HCL 0.4 MG CAPSULE PO (08:12)
--- NOTE | 2023-03-13 17:56 | P.PNPSI_ITS ---
Subjective Subjective Date of Service: 03/13/23 Reason For Visit: Depression hopelessness irritability Subjective Notes: Conditional Voluntary Interim History: Pt reports that he is saddened by fact that brother is now in hospice. Pt reports fair sleep. He denies SI/HI. No VH/AH. ongoing low frustration tolerance, inability to see other people's need. No behavioral concerns. Review of Systems Review of Systems itchy feet and right foot discomfort Yes all other systems are reviewed and are negative, Unobtainable due to mental condition and Unobtainable due to mental status Mental Status Exam Mental Status Exam Narrative: Patient Appearance: Fatigued and Appropriate Patient Orientation: Person, Place and Situation Level of Consciousness: Awake Patient Behavior: Guarded, Passive, Fatigued and Distractible Behavior Comments: Mood Description: Withdrawn and Anxious Affect Description: Constricted and Nervous Patient Cognition Impaired: Yes Ability to Follow Directions: Good Speech Pattern: Clear and Slurred Memory Description: Intact Diagnostics Vital Signs (24Hr): Vital Signs - 24 hr 03/12/23 18:00 03/13/23 08:00 Temperature 98.8 F 96.9 F Pulse Rate 65 71 Respiratory Rate 18 16 Blood Pressure 131/65 131/75 Pulse Oximetry 95 97 Oxygen Delivery Method Room Air Room Air BMI result Body Mass Index 30.8 Labs 03/04/23 07:45 03/04/23 07:45 Imaging Radiology Impressions: ITS Impressions Chest X-Ray 10/20/22 15:45 IMPRESSION: 1. Low lung volumes with bibasilar linear disc atelectasis versus scarring. 2. No airspace consolidation or effusion. Head CT 11/08/22 12:29 IMPRESSION: No acute intracranial hemorrhage or territorial infarction. Stable chronic postoperative changes with gliosis and encephalomalacia in the right frontal and right temporal lobes. Ex vacuo dilatation of the ventricles and diffuse parenchymal volume loss. Right-sided craniotomy changes. Chest X-Ray 11/12/22 10:32 IMPRESSION: Hypoexpanded lungs with bibasilar platelike atelectasis. Brain MRI 11/12/22 13:15 IMPRESSION: 1. No demonstrated acute intracranial abnormalities. 2. Chronic encephalomalacia of the right temporal, right frontal, and left occipital lobes. Small regions of chronic encephalomalacia in the parasagittal aspects of the bilateral parietal lobes. Moderate underlying microangiopathy and generalized cerebral volume loss. Chest X-Ray 11/14/22 15:52 IMPRESSION: Low lung volumes, bibasilar subsegmental atelectasis and slight elevation of the right hemidiaphragm similar to previous exam. Modified Barium Swallow 11/21/22 15:11 IMPRESSION: Laryngeal penetration on several occasions but no laryngeal aspiration. Mild retention of solid food in the valleculae which cleared with subsequent oral administration of water or thin barium. Correlate with speech therapy results. Orbit CT 01/23/23 14:05 IMPRESSION: - No definite significant intraorbital soft tissue findings to assessment is limited on a noncontrast CT of the orbits. No retrobulbar mass lesions and no cellulitic changes appreciated. - There are large fluid levels within the left maxillary sinus and within the right frontal sinus the can be correlated for clinical signs of acute sinusitis. - A peripherally ossified structure extending from the dorsal margin of the right nasolacrimal duct into the right maxillary sinus is stable when compared to examinations dated back to 08/24/2008 favoring a benign etiology. Cervical Spine CT 02/14/23 22:15 IMPRESSION: 1. No acute intracranial abnormality. Stable postsurgical changes with right frontotemporal encephalomalacia, global volume loss, and extraocular dilatation of the right lateral ventricle. 2. No cervical spine fracture or traumatic malalignment. Head CT 02/14/23 22:15 IMPRESSION: 1. No acute intracranial abnormality. Stable postsurgical changes with right frontotemporal encephalomalacia, global volume loss, and extraocular dilatation of the right lateral ventricle. 2. No cervical spine fracture or traumatic malalignment. Hip/Pelvis X-Ray 02/14/23 22:25 IMPRESSION: Moderate degenerative changes of the right hip with loss of superolateral joint space. Similar chronic posttraumatic deformity of the right femoral neck with chronic foreshortening. Status post left total hip arthroplasty in unchanged alignment however the lack of a crosstable lateral view limits assessment for dislocation. No acute fracture or dislocation appreciated on the available views. Foot X-Ray 02/22/23 13:50 IMPRESSION: * Postsurgical changes of arthrodesis first metatarsophalangeal joint. * There is developed large osteophyte from the head of the first metatarsal protruding laterally abutting the head of the second metatarsal. This might be the source of patient's pain. * Underlying degenerative osteoarthritis. Foot X-Ray 02/23/23 14:11 IMPRESSION: Mild degenerative changes MTP, PIP and DIP joints. No visible acute fracture or dislocation seen. Medications Medications Current Medications Acetaminophen (Acetaminophen 325 Mg Tablet) 975 mg PO Q6H PRN PRN Reason: Headache/Pain Mild Scale (1-3) Last Admin: 03/10/23 06:04 Dose: 975 mg Albuterol Sulfate (Albuterol Sulfate 90 Mcg 8 Gm Inhaler) 2 puff INHALE Q6H PRN PRN Reason: Wheezing Alprazolam (Alprazolam 0.5 Mg Tablet) 0.5 mg PO BEDTIME [facility] Last Admin: 03/12/23 21:37 Dose: 0.5 mg Alprazolam (Alprazolam 0.25 Mg Tablet) 0.125 mg PO BID@0830,1330 [facility] [place] Last Admin: 03/13/23 12:39 Dose: 0.125 mg Alprazolam (Alprazolam 0.25 Mg Tablet) 0.125 mg PO TID PRN PRN Reason: Anxiety Amlodipine Besylate (Amlodipine Besylate 5 Mg Tablet) 5 mg PO DAILY [facility]; Protocol Last Admin: 03/13/23 08:11 Dose: 5 mg Artificial Tears (Artificial Tears 15 Ml Drops) 1 drop EYE-BOTH Q2H PRN PRN Reason: Dry Eyes Last Admin: 03/12/23 14:35 Dose: 1 drop Bisacodyl (Bisacodyl 10 Mg Supp.Rect) 10 mg NV DAILY PRN PRN Reason: Constipation Clotrimazole (Clotrimazole 1 % Cream 15 Gm Tube) 1 appl TOPICAL BID [facility]; Protocol Last Admin: 03/13/23 10:56 Dose: Not Given Divalproex Sodium (Divalproex Sodium 250 Mg Tablet.Dr) 750 mg PO BEDTIME [facility] Last Admin: 03/12/23 21:38 Dose: 750 mg Guaifenesin/Dextromethorphan (Guaifenesin Dm 100/10/5 Ml 5 Ml Syrup) 5 ml PO Q4H PRN PRN Reason: cough Last Admin: 03/13/23 03:34 Dose: 5 ml Hydrocortisone (Hydrocortisone 1 % Cream 28.35 Gm Tube) 1 appl TOPICAL BID PRN; Protocol PRN Reason: itchy feet Last Admin: 03/09/23 20:43 Dose: 1 appl Hydroxyzine HCl (Hydroxyzine Hcl 25 Mg Tablet) 25 mg PO Q4H PRN PRN Reason: Anxiety Last Admin: 03/09/23 09:19 Dose: 25 mg Ibuprofen (Ibuprofen 600 Mg Tablet) 600 mg PO Q6H PRN PRN Reason: Pain, Moderate (Pain Scale 4-6 Last Admin: 03/12/23 17:29 Dose: 600 mg Lamotrigine (Lamotrigine 100 Mg Tablet) 100 mg PO BID [facility] Last Admin: 03/13/23 08:12 Dose: 100 mg Latanoprost (Latanoprost 0.005 % Ophth No 2.5 Ml Drops) 1 drop EYE-BOTH BEDTIME [facility] Last Admin: 03/12/23 21:43 Dose: 1 drop Lidocaine (Lidocaine 5 % Ointment 35 Gm) 1 appl TOPICAL Q6H PRN; Protocol PRN Reason: pain r foot Last Admin: 03/11/23 21:10 Dose: 1 appl Magnesium Hydroxide (Milk Of Magnesia 30 Ml Oral.Susp) 30 ml PO BID PRN PRN Reason: constipation, stomach/GI upset Last Admin: 03/08/23 13:49 Dose: 30 ml Multi-Ingred Cream/Lotion/Oil/Oint (Mineral Oil/Petrolatum,White 106 Gm Tube) 1 appl TOPICAL BID PRN; Protocol PRN Reason: dry skin Nortriptyline HCl (Nortriptyline Hcl 25 Mg Capsule) 50 mg PO BEDTIME [facility] Last Admin: 03/12/23 21:38 Dose: 50 mg Nystatin (Nystatin Powder 15 Gm Bottle) 1 appl TOPICAL BID [facility]; Protocol Last Admin: 03/13/23 10:57 Dose: Not Given Olanzapine (Olanzapine 2.5 Mg Tablet) 2.5 mg PO Q4H PRN PRN Reason: anxiety/restlessness Last Admin: 03/13/23 14:08 Dose: 2.5 mg Olanzapine (Olanzapine 2.5 Mg Tablet) 2.5 mg PO DAILY [facility] Last Admin: 03/13/23 08:12 Dose: 2.5 mg Olanzapine (Olanzapine 5 Mg Tablet) 5 mg PO BEDTIME [facility] Last Admin: 03/12/23 21:38 Dose: 5 mg Polyethylene Glycol (Polyethylene Glycol 3350 17 Gm Powd.Pack) 17 gm PO BID [facility] Last Admin: 03/13/23 08:09 Dose: 17 gm Propranolol HCl (Propranolol Hcl 10 Mg Tablet) 10 mg PO TID [facility] [place]; Protocol Last Admin: 03/13/23 14:09 Dose: 10 mg Senna/Docusate Sodium (Sennosides/Docusate Sodium Tablet) 2 tab PO BEDTIME [facility] [place] Last Admin: 03/12/23 21:42 Dose: 2 tab Sodium Biphosphate/Sodium Phosphate (Sodium Phosphate,[place]-Dibasic 133 Ml Enema) 133 ml NV ONCE PRN PRN Reason: Constipation Sodium Chloride (Sodium Chloride 0.65 % Nasal 44 Ml Sprbtl) 1 spray NOSTRIL-B Q1H PRN PRN Reason: Nasal Congestion Last Admin: 02/26/23 21:14 Dose: 1 spray Tamsulosin HCl (Tamsulosin Hcl 0.4 Mg Capsule) 0.4 mg PO DAILY [facility] [place] [place] Last Admin: 03/13/23 08:12 Dose: 0.4 mg Trazodone HCl (Trazodone Hcl 100 Mg Tablet) 200 mg PO BEDTIME [facility] [place] Last Admin: 03/12/23 21:42 Dose: 200 mg Venlafaxine HCl (Venlafaxine Hcl Er 75 Mg Cap.Er.24h) 75 mg PO DAILY [facility] [place] [place] Last Admin: 03/13/23 08:11 Dose: 75 mg Allergies Allergies Allergy/AdvReac Type Severity Reaction Status Date / Time fentanyl [FENTANYL] Allergy Intermediate unknown Verified 04/08/22 07:00 Assessment & Plan Assessment & Plan (1) Major depressive disorder, recurrent severe without psychotic features: Status: Acute Code(s): F33.2 - Major depressive disorder, recurrent severe without psychotic features (2) Cognitive and neurobehavioral dysfunction following brain injury: Status: Acute Code(s): G31.89 - Other specified degenerative diseases of nervous system; F09 - Unspecified mental disorder due to known physiological condition; S06.9X9S - Unspecified intracranial injury with loss of consciousness of unspecified duration, sequela (3) Personality disorder in adult: Status: Acute Code(s): F60.9 - Personality disorder, unspecified Plan ALPRAZOLAM 0.25 B.I.D. 0.5 BEDTIME OLANZAPINE ALSO 3 TIMES A DAY CONTINUE DEPAKOTE START PROPRANOLOL 10 T.I.D. THE PATIENT CONFRONTED REGARDING NEGATIVE TOXIC BEHAVIOR DIFFICULTY COPING AND NEGATIVE COMPLICATIONS TO HIS LIFE IF CONTINUE VERBALLY AGGRESSIVE AND TOXIC BEHAVIOR WITH OTHERS DEVALUATION ENCOURAGE REFLECTION STRESS MANAGEMENT COPING STRATEGIES 03/07 continue same treatment 03/08 continue same treatment 03/09 continue same treatment 03/10/23 Lower alprazolam .125 mg bid hold afternoon olanzapine secondary to slurring oversedation cont propranolol 03/11/23 Pt doing better less sedated struggles to maintain pos attitude 03/13 continue tx. Reason for continued inpatient stay Substantial Risk for: inability to function Time Spent With Patient Time: Total time managing care of this patient today ____ minutes.
[2023-03-13 18:00] VITALS: BP 162/73; PULSE 68; RESP 20; TEMP 36.4; O2SAT 98
[2023-03-13] MEDS: ALPRAZolam 0.5 MG TABLET PO (20:20)
[2023-03-13] MEDS: Divalproex Sodium 250 MG TABLET.DR 750 MG PO (21:44)
[2023-03-13] MEDS: OLANZapine 5 MG TABLET PO (21:45)
[2023-03-13] MEDS: Nortriptyline HCl 25 MG CAPSULE 50 MG PO (21:47)
[2023-03-13] MEDS: Sennosides/Docusate Sodium TABLET 2 TAB PO (21:48)
[2023-03-13] MEDS: Nystatin Powder 15 GM BOTTLE 1 APPL TOPICAL (21:53)
[2023-03-13] MEDS: Latanoprost 0.005 % Ophth Sol 2.5 ML DROPS 1 DROP EYE-BOTH (21:53)
[2023-03-13] MEDS: Clotrimazole 1 % Cream 15 GM TUBE 1 APPL TOPICAL (21:54)
[2023-03-13] MEDS: traZODone HCL 100 MG TABLET 200 MG PO (22:00)
[2023-03-14] MEDS: hydrOXYzine HCL 25 MG TABLET PO ×2 (00:56→05:50)
[2023-03-14] MEDS: ALPRAZolam 0.25 MG TABLET 0.125 MG PO ×4 (00:57→16:30)
[2023-03-14 06:00] VITALS: BP 134/71; PULSE 79; RESP 16; TEMP 36.6; O2SAT 96
[2023-03-14] MEDS: Venlafaxine HCl ER 75 MG CAP.ER.24H PO (08:43)
[2023-03-14] MEDS: lamoTRIgine 100 MG TABLET PO ×2 (08:43→20:35)
[2023-03-14] MEDS: Tamsulosin HCL 0.4 MG CAPSULE PO (08:43)
[2023-03-14] MEDS: OLANZapine 2.5 MG TABLET PO (08:43)
[2023-03-14] MEDS: Propranolol HCL 10 MG TABLET PO ×3 (08:43→20:36)
[2023-03-14] MEDS: amLODIPine Besylate 5 MG TABLET PO (08:43)
[2023-03-14] MEDS: polyethylene glycoL 3350 17 GM POWD.PACK PO (08:44)
--- NOTE | 2023-03-14 11:07 | HO.PSYCHPN ---
Subjective Subjective Date of Service: 03/14/23 Reason For Visit: Depression hopelessness irritability Interim History: calm, cooperative. discusses at some length his despondency around his brother's deteriorating state; brother is reportedly in end-stage dementia. expresses gratitude for 's time, states he could really use a xanax. RN informed. no other complaints or requests. per staff, awaiting placement. no other notable events or behaviors. Mental Status Exam Mental Status Exam Narrative: Patient Appearance: Fatigued and Appropriate Patient Orientation: Person, Place and Situation Level of Consciousness: Awake Patient Behavior: Guarded, Passive, Fatigued and Distractible Behavior Comments: Mood Description: Withdrawn and Anxious Affect Description: Constricted and Nervous Patient Cognition Impaired: Yes Ability to Follow Directions: Good Speech Pattern: Clear and Slurred Memory Description: Intact Diagnostics Vital Signs (24Hr): Vital Signs - 24 hr 03/13/23 18:00 03/14/23 06:00 Temperature 97.6 F 97.8 F Pulse Rate 68 79 Respiratory Rate 20 16 Blood Pressure 162/73 H 134/71 Pulse Oximetry 98 96 Oxygen Delivery Method Room Air Room Air BMI result Body Mass Index 30.8 Labs 03/04/23 07:45 03/04/23 07:45 Imaging Radiology Impressions: ITS Impressions Chest X-Ray 10/20/22 15:45 IMPRESSION: 1. Low lung volumes with bibasilar linear disc atelectasis versus scarring. 2. No airspace consolidation or effusion. Head CT 11/08/22 12:29 IMPRESSION: No acute intracranial hemorrhage or territorial infarction. Stable chronic postoperative changes with gliosis and encephalomalacia in the right frontal and right temporal lobes. Ex vacuo dilatation of the ventricles and diffuse parenchymal volume loss. Right-sided craniotomy changes. Chest X-Ray 11/12/22 10:32 IMPRESSION: Hypoexpanded lungs with bibasilar platelike atelectasis. Brain MRI 11/12/22 13:15 IMPRESSION: 1. No demonstrated acute intracranial abnormalities. 2. Chronic encephalomalacia of the right temporal, right frontal, and left occipital lobes. Small regions of chronic encephalomalacia in the parasagittal aspects of the bilateral parietal lobes. Moderate underlying microangiopathy and generalized cerebral volume loss. Chest X-Ray 11/14/22 15:52 IMPRESSION: Low lung volumes, bibasilar subsegmental atelectasis and slight elevation of the right hemidiaphragm similar to previous exam. Modified Barium Swallow 11/21/22 15:11 IMPRESSION: Laryngeal penetration on several occasions but no laryngeal aspiration. Mild retention of solid food in the valleculae which cleared with subsequent oral administration of water or thin barium. Correlate with speech therapy results. Orbit CT 01/23/23 14:05 IMPRESSION: - No definite significant intraorbital soft tissue findings to assessment is limited on a noncontrast CT of the orbits. No retrobulbar mass lesions and no cellulitic changes appreciated. - There are large fluid levels within the left maxillary sinus and within the right frontal sinus the can be correlated for clinical signs of acute sinusitis. - A peripherally ossified structure extending from the dorsal margin of the right nasolacrimal duct into the right maxillary sinus is stable when compared to examinations dated back to 08/24/2008 favoring a benign etiology. Cervical Spine CT 02/14/23 22:15 IMPRESSION: 1. No acute intracranial abnormality. Stable postsurgical changes with right frontotemporal encephalomalacia, global volume loss, and extraocular dilatation of the right lateral ventricle. 2. No cervical spine fracture or traumatic malalignment. Head CT 02/14/23 22:15 IMPRESSION: 1. No acute intracranial abnormality. Stable postsurgical changes with right frontotemporal encephalomalacia, global volume loss, and extraocular dilatation of the right lateral ventricle. 2. No cervical spine fracture or traumatic malalignment. Hip/Pelvis X-Ray 02/14/23 22:25 IMPRESSION: Moderate degenerative changes of the right hip with loss of superolateral joint space. Similar chronic posttraumatic deformity of the right femoral neck with chronic foreshortening. Status post left total hip arthroplasty in unchanged alignment however the lack of a crosstable lateral view limits assessment for dislocation. No acute fracture or dislocation appreciated on the available views. Foot X-Ray 02/22/23 13:50 IMPRESSION: * Postsurgical changes of arthrodesis first metatarsophalangeal joint. * There is developed large osteophyte from the head of the first metatarsal protruding laterally abutting the head of the second metatarsal. This might be the source of patient's pain. * Underlying degenerative osteoarthritis. Foot X-Ray 02/23/23 14:11 IMPRESSION: Mild degenerative changes MTP, PIP and DIP joints. No visible acute fracture or dislocation seen. Medications Medications Current Medications Acetaminophen (Acetaminophen 325 Mg Tablet) 975 mg PO Q6H PRN PRN Reason: Headache/Pain Mild Scale (1-3) Last Admin: 03/10/23 06:04 Dose: 975 mg Albuterol Sulfate (Albuterol Sulfate 90 Mcg 8 Gm Inhaler) 2 puff INHALE Q6H PRN PRN Reason: Wheezing Alprazolam (Alprazolam 0.5 Mg Tablet) 0.5 mg PO BEDTIME TAZ Last Admin: 03/13/23 20:20 Dose: 0.5 mg Alprazolam (Alprazolam 0.25 Mg Tablet) 0.125 mg PO BID@0830,1330 TAZ Last Admin: 03/14/23 08:42 Dose: 0.125 mg Alprazolam (Alprazolam 0.25 Mg Tablet) 0.125 mg PO TID PRN PRN Reason: Anxiety Last Admin: 03/14/23 10:46 Dose: 0.125 mg Amlodipine Besylate (Amlodipine Besylate 5 Mg Tablet) 5 mg PO DAILY TAZ; Protocol Last Admin: 03/14/23 08:43 Dose: 5 mg Artificial Tears (Artificial Tears 15 Ml Drops) 1 drop EYE-BOTH Q2H PRN PRN Reason: Dry Eyes Last Admin: 03/12/23 14:35 Dose: 1 drop Bisacodyl (Bisacodyl 10 Mg Supp.Rect) 10 mg DE DAILY PRN PRN Reason: Constipation Clotrimazole (Clotrimazole 1 % Cream 15 Gm Tube) 1 appl TOPICAL BID TAZ; Protocol Last Admin: 03/13/23 21:54 Dose: 1 appl Divalproex Sodium (Divalproex Sodium 250 Mg Tablet.Dr) 750 mg PO BEDTIME TAZ Last Admin: 03/13/23 21:44 Dose: 750 mg Guaifenesin/Dextromethorphan (Guaifenesin Dm 100/10/5 Ml 5 Ml Syrup) 5 ml PO Q4H PRN PRN Reason: cough Last Admin: 03/13/23 03:34 Dose: 5 ml Hydrocortisone (Hydrocortisone 1 % Cream 28.35 Gm Tube) 1 appl TOPICAL BID PRN; Protocol PRN Reason: itchy feet Last Admin: 03/09/23 20:43 Dose: 1 appl Hydroxyzine HCl (Hydroxyzine Hcl 25 Mg Tablet) 25 mg PO Q4H PRN PRN Reason: Anxiety Last Admin: 03/14/23 05:50 Dose: 25 mg Ibuprofen (Ibuprofen 600 Mg Tablet) 600 mg PO Q6H PRN PRN Reason: Pain, Moderate (Pain Scale 4-6 Last Admin: 03/12/23 17:29 Dose: 600 mg Lamotrigine (Lamotrigine 100 Mg Tablet) 100 mg PO BID TAZ Last Admin: 03/14/23 08:43 Dose: 100 mg Latanoprost (Latanoprost 0.005 % Ophth No 2.5 Ml Drops) 1 drop EYE-BOTH BEDTIME TAZ Last Admin: 03/13/23 21:53 Dose: 1 drop Lidocaine (Lidocaine 5 % Ointment 35 Gm) 1 appl TOPICAL Q6H PRN; Protocol PRN Reason: pain r foot Last Admin: 03/11/23 21:10 Dose: 1 appl Magnesium Hydroxide (Milk Of Magnesia 30 Ml Oral.Susp) 30 ml PO BID PRN PRN Reason: constipation, stomach/GI upset Last Admin: 03/08/23 13:49 Dose: 30 ml Multi-Ingred Cream/Lotion/Oil/Oint (Mineral Oil/Petrolatum,White 106 Gm Tube) 1 appl TOPICAL BID PRN; Protocol PRN Reason: dry skin Nortriptyline HCl (Nortriptyline Hcl 25 Mg Capsule) 50 mg PO BEDTIME TAZ Last Admin: 03/13/23 21:47 Dose: 50 mg Nystatin (Nystatin Powder 15 Gm Bottle) 1 appl TOPICAL BID TAZ; Protocol Last Admin: 03/13/23 21:53 Dose: 1 appl Olanzapine (Olanzapine 2.5 Mg Tablet) 2.5 mg PO Q4H PRN PRN Reason: anxiety/restlessness Last Admin: 03/13/23 14:08 Dose: 2.5 mg Olanzapine (Olanzapine 2.5 Mg Tablet) 2.5 mg PO DAILY TAZ Last Admin: 03/14/23 08:43 Dose: 2.5 mg Olanzapine (Olanzapine 5 Mg Tablet) 5 mg PO BEDTIME TAZ Last Admin: 03/13/23 21:45 Dose: 5 mg Polyethylene Glycol (Polyethylene Glycol 3350 17 Gm Powd.Pack) 17 gm PO BID TAZ Last Admin: 03/14/23 08:44 Dose: 17 gm Propranolol HCl (Propranolol Hcl 10 Mg Tablet) 10 mg PO TID TAZ; Protocol Last Admin: 03/14/23 08:43 Dose: 10 mg Senna/Docusate Sodium (Sennosides/Docusate Sodium Tablet) 2 tab PO BEDTIME [facility] Last Admin: 03/13/23 21:48 Dose: 2 tab Sodium Biphosphate/Sodium Phosphate (Sodium Phosphate,[place]-Dibasic 133 Ml Enema) 133 ml DE ONCE PRN PRN Reason: Constipation Sodium Chloride (Sodium Chloride 0.65 % Nasal 44 Ml Sprbtl) 1 spray NOSTRIL-B Q1H PRN PRN Reason: Nasal Congestion Last Admin: 02/26/23 21:14 Dose: 1 spray Tamsulosin HCl (Tamsulosin Hcl 0.4 Mg Capsule) 0.4 mg PO DAILY [facility] Last Admin: 03/14/23 08:43 Dose: 0.4 mg Trazodone HCl (Trazodone Hcl 100 Mg Tablet) 200 mg PO BEDTIME [facility] Last Admin: 03/13/23 22:00 Dose: 200 mg Venlafaxine HCl (Venlafaxine Hcl Er 75 Mg Cap.Er.24h) 75 mg PO DAILY [facility] Last Admin: 03/14/23 08:43 Dose: 75 mg Allergies Allergies Allergy/AdvReac Type Severity Reaction Status Date / Time fentanyl [FENTANYL] Allergy Intermediate unknown Verified 04/08/22 07:00 Assessment & Plan Assessment & Plan (1) Major depressive disorder, recurrent severe without psychotic features: Status: Acute Code(s): F33.2 - Major depressive disorder, recurrent severe without psychotic features (2) Cognitive and neurobehavioral dysfunction following brain injury: Status: Acute Code(s): G31.89 - Other specified degenerative diseases of nervous system; F09 - Unspecified mental disorder due to known physiological condition; S06.9X9S - Unspecified intracranial injury with loss of consciousness of unspecified duration, sequela (3) Personality disorder in adult: Status: Acute Code(s): F60.9 - Personality disorder, unspecified Plan ALPRAZOLAM 0.25 B.I.D. 0.5 BEDTIME OLANZAPINE ALSO 3 TIMES A DAY CONTINUE DEPAKOTE START PROPRANOLOL 10 T.I.D. THE PATIENT CONFRONTED REGARDING NEGATIVE TOXIC BEHAVIOR DIFFICULTY COPING AND NEGATIVE COMPLICATIONS TO HIS LIFE IF CONTINUE VERBALLY AGGRESSIVE AND TOXIC BEHAVIOR WITH OTHERS DEVALUATION ENCOURAGE REFLECTION STRESS MANAGEMENT COPING STRATEGIES 03/07 continue same treatment 03/08 continue same treatment 03/09 continue same treatment 03/10/23 Lower alprazolam .125 mg bid hold afternoon olanzapine secondary to slurring oversedation cont propranolol 03/11/23 Pt doing better less sedated struggles to maintain pos attitude 03/13 continue tx. 03/14: stable presentation, no change in mgmt. Reason for continued inpatient stay Substantial Risk for: harm to self, inability to function and rapid decompensation Time Spent With Patient Time: Total time managing care of this patient today ____ minutes.
[2023-03-14] MEDS: Artificial Tears 15 ML DROPS 1 DROP EYE-BOTH (18:08)
[2023-03-14 18:43] VITALS: BP 134/72; PULSE 60; RESP 18; TEMP 36.5; O2SAT 97
[2023-03-14] MEDS: Nystatin Powder 15 GM BOTTLE 1 APPL TOPICAL (20:33)
[2023-03-14] MEDS: Latanoprost 0.005 % Ophth Sol 2.5 ML DROPS 1 DROP EYE-BOTH (20:33)
[2023-03-14] MEDS: Divalproex Sodium 250 MG TABLET.DR 750 MG PO (20:33)
[2023-03-14] MEDS: Nortriptyline HCl 25 MG CAPSULE 50 MG PO (20:34)
[2023-03-14] MEDS: Sennosides/Docusate Sodium TABLET 2 TAB PO (20:34)
[2023-03-14] MEDS: ALPRAZolam 0.5 MG TABLET PO (20:35)
[2023-03-14] MEDS: OLANZapine 5 MG TABLET PO (20:35)
[2023-03-14] MEDS: traZODone HCL 100 MG TABLET 200 MG PO (20:35)
[2023-03-14] MEDS: Clotrimazole 1 % Cream 15 GM TUBE 1 APPL TOPICAL (20:39)
[2023-03-14] MEDS: Acetaminophen 325 MG TABLET 975 MG PO (20:58)
[2023-03-15 06:00] VITALS: BP 135/70; PULSE 75; RESP 16; TEMP 36.1; O2SAT 92
[2023-03-15] MEDS: ALPRAZolam 0.25 MG TABLET 0.125 MG PO ×2 (08:55→15:29)
[2023-03-15] MEDS: amLODIPine Besylate 5 MG TABLET PO (08:55)
[2023-03-15] MEDS: Tamsulosin HCL 0.4 MG CAPSULE PO (08:55)
[2023-03-15] MEDS: Venlafaxine HCl ER 75 MG CAP.ER.24H PO (08:56)
[2023-03-15] MEDS: Propranolol HCL 10 MG TABLET PO ×3 (08:56→20:15)
[2023-03-15] MEDS: OLANZapine 2.5 MG TABLET PO (08:57)
[2023-03-15] MEDS: polyethylene glycoL 3350 17 GM POWD.PACK PO (08:57)
[2023-03-15] MEDS: lamoTRIgine 100 MG TABLET PO ×2 (08:57→20:15)
--- NOTE | 2023-03-15 11:27 | HO.PSYCHPN ---
Subjective Subjective Date of Service: 03/15/23 Reason For Visit: Depression hopelessness irritability Interim History: pt found asleep slouched in his wheelchair in the milieu. awakens to loud voice. immediately c/o severe anxiety saying he weighs over 200 pounds and is only being Rx'ed 0.125 mg of xanax per dose. MD informs him that most medications for anxiety are sedating and that he is apparently sedated already yet when conscious feeling anxiety, which puts us in a difficult spot as far as psychopharmacology is concerned. he was advised to take the matter up with Dr. Haskins tomorrow. he accepted the response and asif GAINES a good day. per staff, slept OK. no issues. appears overmedicated. Mental Status Exam Mental Status Exam Narrative: Patient Appearance: Fatigued and Appropriate Patient Orientation: Person, Place and Situation Level of Consciousness: Sedated Patient Behavior: Guarded, Passive, Fatigued and Distractible Behavior Comments: Mood Description: Withdrawn and Anxious Affect Description: Constricted and Nervous Patient Cognition Impaired: Yes Ability to Follow Directions: Good Speech Pattern: Clear and Slurred Memory Description: Intact Diagnostics Vital Signs (24Hr): Vital Signs - 24 hr 03/14/23 18:43 03/15/23 06:00 Temperature 97.7 F 97.0 F Pulse Rate 60 75 Respiratory Rate 18 16 Blood Pressure 134/72 135/70 Pulse Oximetry 97 92 Oxygen Delivery Method Room Air Room Air BMI result Body Mass Index 30.8 Labs 03/04/23 07:45 03/04/23 07:45 Imaging Radiology Impressions: ITS Impressions Chest X-Ray 10/20/22 15:45 IMPRESSION: 1. Low lung volumes with bibasilar linear disc atelectasis versus scarring. 2. No airspace consolidation or effusion. Head CT 11/08/22 12:29 IMPRESSION: No acute intracranial hemorrhage or territorial infarction. Stable chronic postoperative changes with gliosis and encephalomalacia in the right frontal and right temporal lobes. Ex vacuo dilatation of the ventricles and diffuse parenchymal volume loss. Right-sided craniotomy changes. Chest X-Ray 11/12/22 10:32 IMPRESSION: Hypoexpanded lungs with bibasilar platelike atelectasis. Brain MRI 11/12/22 13:15 IMPRESSION: 1. No demonstrated acute intracranial abnormalities. 2. Chronic encephalomalacia of the right temporal, right frontal, and left occipital lobes. Small regions of chronic encephalomalacia in the parasagittal aspects of the bilateral parietal lobes. Moderate underlying microangiopathy and generalized cerebral volume loss. Chest X-Ray 11/14/22 15:52 IMPRESSION: Low lung volumes, bibasilar subsegmental atelectasis and slight elevation of the right hemidiaphragm similar to previous exam. Modified Barium Swallow 11/21/22 15:11 IMPRESSION: Laryngeal penetration on several occasions but no laryngeal aspiration. Mild retention of solid food in the valleculae which cleared with subsequent oral administration of water or thin barium. Correlate with speech therapy results. Orbit CT 01/23/23 14:05 IMPRESSION: - No definite significant intraorbital soft tissue findings to assessment is limited on a noncontrast CT of the orbits. No retrobulbar mass lesions and no cellulitic changes appreciated. - There are large fluid levels within the left maxillary sinus and within the right frontal sinus the can be correlated for clinical signs of acute sinusitis. - A peripherally ossified structure extending from the dorsal margin of the right nasolacrimal duct into the right maxillary sinus is stable when compared to examinations dated back to 08/24/2008 favoring a benign etiology. Cervical Spine CT 02/14/23 22:15 IMPRESSION: 1. No acute intracranial abnormality. Stable postsurgical changes with right frontotemporal encephalomalacia, global volume loss, and extraocular dilatation of the right lateral ventricle. 2. No cervical spine fracture or traumatic malalignment. Head CT 02/14/23 22:15 IMPRESSION: 1. No acute intracranial abnormality. Stable postsurgical changes with right frontotemporal encephalomalacia, global volume loss, and extraocular dilatation of the right lateral ventricle. 2. No cervical spine fracture or traumatic malalignment. Hip/Pelvis X-Ray 02/14/23 22:25 IMPRESSION: Moderate degenerative changes of the right hip with loss of superolateral joint space. Similar chronic posttraumatic deformity of the right femoral neck with chronic foreshortening. Status post left total hip arthroplasty in unchanged alignment however the lack of a crosstable lateral view limits assessment for dislocation. No acute fracture or dislocation appreciated on the available views. Foot X-Ray 02/22/23 13:50 IMPRESSION: * Postsurgical changes of arthrodesis first metatarsophalangeal joint. * There is developed large osteophyte from the head of the first metatarsal protruding laterally abutting the head of the second metatarsal. This might be the source of patient's pain. * Underlying degenerative osteoarthritis. Foot X-Ray 02/23/23 14:11 IMPRESSION: Mild degenerative changes MTP, PIP and DIP joints. No visible acute fracture or dislocation seen. Medications Medications Current Medications Acetaminophen (Acetaminophen 325 Mg Tablet) 975 mg PO Q6H PRN PRN Reason: Headache/Pain Mild Scale (1-3) Last Admin: 03/14/23 20:58 Dose: 975 mg Albuterol Sulfate (Albuterol Sulfate 90 Mcg 8 Gm Inhaler) 2 puff INHALE Q6H PRN PRN Reason: Wheezing Alprazolam (Alprazolam 0.5 Mg Tablet) 0.5 mg PO BEDTIME REPLACED BY [facility] Last Admin: 03/14/23 20:35 Dose: 0.5 mg Alprazolam (Alprazolam 0.25 Mg Tablet) 0.125 mg PO BID@0830,1330 REPLACED BY [facility] Last Admin: 03/15/23 08:55 Dose: 0.125 mg Alprazolam (Alprazolam 0.25 Mg Tablet) 0.125 mg PO TID PRN PRN Reason: Anxiety Last Admin: 03/14/23 10:46 Dose: 0.125 mg Amlodipine Besylate (Amlodipine Besylate 5 Mg Tablet) 5 mg PO DAILY REPLACED BY [facility]; Protocol Last Admin: 03/15/23 08:55 Dose: 5 mg Artificial Tears (Artificial Tears 15 Ml Drops) 1 drop EYE-BOTH Q2H PRN PRN Reason: Dry Eyes Last Admin: 03/14/23 18:08 Dose: 1 drop Bisacodyl (Bisacodyl 10 Mg Supp.Rect) 10 mg SC DAILY PRN PRN Reason: Constipation Clotrimazole (Clotrimazole 1 % Cream 15 Gm Tube) 1 appl TOPICAL BID REPLACED BY [facility]; Protocol Last Admin: 03/15/23 11:24 Dose: Not Given Divalproex Sodium (Divalproex Sodium 250 Mg Tablet.Dr) 750 mg PO BEDTIME TAZ Last Admin: 03/14/23 20:33 Dose: 750 mg Guaifenesin/Dextromethorphan (Guaifenesin Dm 100/10/5 Ml 5 Ml Syrup) 5 ml PO Q4H PRN PRN Reason: cough Last Admin: 03/13/23 03:34 Dose: 5 ml Hydrocortisone (Hydrocortisone 1 % Cream 28.35 Gm Tube) 1 appl TOPICAL BID PRN; Protocol PRN Reason: itchy feet Last Admin: 03/09/23 20:43 Dose: 1 appl Hydroxyzine HCl (Hydroxyzine Hcl 25 Mg Tablet) 25 mg PO Q4H PRN PRN Reason: Anxiety Last Admin: 03/14/23 05:50 Dose: 25 mg Ibuprofen (Ibuprofen 600 Mg Tablet) 600 mg PO Q6H PRN PRN Reason: Pain, Moderate (Pain Scale 4-6 Last Admin: 03/12/23 17:29 Dose: 600 mg Lamotrigine (Lamotrigine 100 Mg Tablet) 100 mg PO BID TAZ Last Admin: 03/15/23 08:57 Dose: 100 mg Latanoprost (Latanoprost 0.005 % Ophth No 2.5 Ml Drops) 1 drop EYE-BOTH BEDTIME TAZ Last Admin: 03/14/23 20:33 Dose: 1 drop Lidocaine (Lidocaine 5 % Ointment 35 Gm) 1 appl TOPICAL Q6H PRN; Protocol PRN Reason: pain r foot Last Admin: 03/11/23 21:10 Dose: 1 appl Magnesium Hydroxide (Milk Of Magnesia 30 Ml Oral.Susp) 30 ml PO BID PRN PRN Reason: constipation, stomach/GI upset Last Admin: 03/08/23 13:49 Dose: 30 ml Multi-Ingred Cream/Lotion/Oil/Oint (Mineral Oil/Petrolatum,White 106 Gm Tube) 1 appl TOPICAL BID PRN; Protocol PRN Reason: dry skin Nortriptyline HCl (Nortriptyline Hcl 25 Mg Capsule) 50 mg PO BEDTIME TAZ Last Admin: 03/14/23 20:34 Dose: 50 mg Nystatin (Nystatin Powder 15 Gm Bottle) 1 appl TOPICAL BID TAZ; Protocol Last Admin: 03/15/23 08:57 Dose: Not Given Olanzapine (Olanzapine 2.5 Mg Tablet) 2.5 mg PO Q4H PRN PRN Reason: anxiety/restlessness Last Admin: 03/13/23 14:08 Dose: 2.5 mg Olanzapine (Olanzapine 2.5 Mg Tablet) 2.5 mg PO DAILY TAZ Last Admin: 03/15/23 08:57 Dose: 2.5 mg Olanzapine (Olanzapine 5 Mg Tablet) 5 mg PO BEDTIME REPLACED BY [facility] Last Admin: 03/14/23 20:35 Dose: 5 mg Polyethylene Glycol (Polyethylene Glycol 3350 17 Gm Powd.Pack) 17 gm PO BID REPLACED BY [facility] Last Admin: 03/15/23 08:57 Dose: 17 gm Propranolol HCl (Propranolol Hcl 10 Mg Tablet) 10 mg PO TID REPLACED BY [facility]; Protocol Last Admin: 03/15/23 08:56 Dose: 10 mg Senna/Docusate Sodium (Sennosides/Docusate Sodium Tablet) 2 tab PO BEDTIME REPLACED BY [facility] Last Admin: 03/14/23 20:34 Dose: 2 tab Sodium Biphosphate/Sodium Phosphate (Sodium Phosphate,[place]-Dibasic 133 Ml Enema) 133 ml SC ONCE PRN PRN Reason: Constipation Sodium Chloride (Sodium Chloride 0.65 % Nasal 44 Ml Sprbtl) 1 spray NOSTRIL-B Q1H PRN PRN Reason: Nasal Congestion Last Admin: 02/26/23 21:14 Dose: 1 spray Tamsulosin HCl (Tamsulosin Hcl 0.4 Mg Capsule) 0.4 mg PO DAILY REPLACED BY [facility] Last Admin: 03/15/23 08:55 Dose: 0.4 mg Trazodone HCl (Trazodone Hcl 100 Mg Tablet) 200 mg PO BEDTIME REPLACED BY [facility] Last Admin: 03/14/23 20:35 Dose: 200 mg Venlafaxine HCl (Venlafaxine Hcl Er 75 Mg Cap.Er.24h) 75 mg PO DAILY REPLACED BY [facility] Last Admin: 03/15/23 08:56 Dose: 75 mg Allergies Allergies Allergy/AdvReac Type Severity Reaction Status Date / Time fentanyl [FENTANYL] Allergy Intermediate unknown Verified 04/08/22 07:00 Assessment & Plan Assessment & Plan (1) Major depressive disorder, recurrent severe without psychotic features: Status: Acute Code(s): F33.2 - Major depressive disorder, recurrent severe without psychotic features (2) Cognitive and neurobehavioral dysfunction following brain injury: Status: Acute Code(s): G31.89 - Other specified degenerative diseases of nervous system; F09 - Unspecified mental disorder due to known physiological condition; S06.9X9S - Unspecified intracranial injury with loss of consciousness of unspecified duration, sequela (3) Personality disorder in adult: Status: Acute Code(s): F60.9 - Personality disorder, unspecified Plan ALPRAZOLAM 0.25 B.I.D. 0.5 BEDTIME OLANZAPINE ALSO 3 TIMES A DAY CONTINUE DEPAKOTE START PROPRANOLOL 10 T.I.D. THE PATIENT CONFRONTED REGARDING NEGATIVE TOXIC BEHAVIOR DIFFICULTY COPING AND NEGATIVE COMPLICATIONS TO HIS LIFE IF CONTINUE VERBALLY AGGRESSIVE AND TOXIC BEHAVIOR WITH OTHERS DEVALUATION ENCOURAGE REFLECTION STRESS MANAGEMENT COPING STRATEGIES 03/07 continue same treatment 03/08 continue same treatment 03/09 continue same treatment 03/10/23 Lower alprazolam .125 mg bid hold afternoon olanzapine secondary to slurring oversedation cont propranolol 03/11/23 Pt doing better less sedated struggles to maintain pos attitude 03/13 continue tx. 03/14: stable presentation, no change in mgmt. 03/15: appears sedated. no change in mgmt today. to F/U with attending tomorrow re meds for anxiety. Reason for continued inpatient stay Substantial Risk for: harm to others, inability to function and rapid decompensation Time Spent With Patient Time: Total time managing care of this patient today ____ minutes.
[2023-03-15] MEDS: Acetaminophen 325 MG TABLET 975 MG PO (15:28)
[2023-03-15 18:00] VITALS: BP 115/63; PULSE 63; RESP 18; TEMP 36; O2SAT 96
[2023-03-15] MEDS: OLANZapine 5 MG TABLET PO (20:14)
[2023-03-15] MEDS: Nortriptyline HCl 25 MG CAPSULE 50 MG PO (20:14)
[2023-03-15] MEDS: ALPRAZolam 0.5 MG TABLET PO (20:14)
[2023-03-15] MEDS: Divalproex Sodium 250 MG TABLET.DR 750 MG PO (20:15)
[2023-03-15] MEDS: traZODone HCL 100 MG TABLET 200 MG PO (20:15)
[2023-03-15] MEDS: Sennosides/Docusate Sodium TABLET 2 TAB PO (20:15)
[2023-03-15] MEDS: Latanoprost 0.005 % Ophth Sol 2.5 ML DROPS 1 DROP EYE-BOTH (20:16)
[2023-03-15] MEDS: Nystatin Powder 15 GM BOTTLE 1 APPL TOPICAL (20:19)
[2023-03-15] MEDS: Clotrimazole 1 % Cream 15 GM TUBE 1 APPL TOPICAL (20:19)
[2023-03-15] MEDS: Lidocaine 5 % Ointment 35 GM 1 APPL TOPICAL (20:20)
[2023-03-16 06:00] VITALS: BP 140/95; PULSE 73; RESP 18; TEMP 36.3; O2SAT 97
[2023-03-16] MEDS: polyethylene glycoL 3350 17 GM POWD.PACK PO (08:38)
[2023-03-16] MEDS: lamoTRIgine 100 MG TABLET PO ×2 (08:42→20:24)
[2023-03-16] MEDS: OLANZapine 2.5 MG TABLET PO (08:42)
[2023-03-16] MEDS: Tamsulosin HCL 0.4 MG CAPSULE PO (08:42)
[2023-03-16] MEDS: Propranolol HCL 10 MG TABLET PO ×3 (08:42→20:24)
[2023-03-16] MEDS: amLODIPine Besylate 5 MG TABLET PO (08:42)
[2023-03-16] MEDS: Venlafaxine HCl ER 75 MG CAP.ER.24H PO (08:42)
[2023-03-16] MEDS: Acetaminophen 325 MG TABLET 975 MG PO (12:11)
[2023-03-16] MEDS: ALPRAZolam 0.25 MG TABLET 0.125 MG PO (12:11)
--- NOTE | 2023-03-16 15:47 | P.PNPSI_ITS ---
Subjective Subjective Date of Service: 03/16/23 Reason For Visit: Depression hopelessness irritability Subjective Notes: Conditional Voluntary Interim History: Pt reports he has been thinking about his brother who is in hospice with advanced dementia. Pt reports he is ready to step down to less restrictive environment and move forward. Pt does report that he does not know how he will do outside as he has been here for such long time. He denies SI/HI. he has been taking medications as prescribed. No behavioral concerns. Medication Compliance: Yes Review of Systems Review of Systems itchy feet and right foot discomfort Yes all other systems are reviewed and are negative, Unobtainable due to mental condition and Unobtainable due to mental status Mental Status Exam Mental Status Exam Narrative: Patient Appearance: Fatigued and Appropriate Patient Orientation: Person, Place and Situation Level of Consciousness: Sedated Patient Behavior: Guarded, Passive, Fatigued and Distractible Behavior Comments: Mood Description: Withdrawn and Anxious Affect Description: Constricted and Nervous Patient Cognition Impaired: Yes Ability to Follow Directions: Good Speech Pattern: Clear and Slurred Memory Description: Intact Diagnostics Vital Signs (24Hr): Vital Signs - 24 hr 03/15/23 18:00 03/16/23 06:00 Temperature 96.8 F 97.3 F Pulse Rate 63 73 Respiratory Rate 18 18 Blood Pressure 115/63 140/95 H Pulse Oximetry 96 97 Oxygen Delivery Method Room Air Room Air BMI result Body Mass Index 30.8 Labs 03/04/23 07:45 03/04/23 07:45 Imaging Radiology Impressions: ITS Impressions Chest X-Ray 10/20/22 15:45 IMPRESSION: 1. Low lung volumes with bibasilar linear disc atelectasis versus scarring. 2. No airspace consolidation or effusion. Head CT 11/08/22 12:29 IMPRESSION: No acute intracranial hemorrhage or territorial infarction. Stable chronic postoperative changes with gliosis and encephalomalacia in the right frontal and right temporal lobes. Ex vacuo dilatation of the ventricles and diffuse parenchymal volume loss. Right-sided craniotomy changes. Chest X-Ray 11/12/22 10:32 IMPRESSION: Hypoexpanded lungs with bibasilar platelike atelectasis. Brain MRI 11/12/22 13:15 IMPRESSION: 1. No demonstrated acute intracranial abnormalities. 2. Chronic encephalomalacia of the right temporal, right frontal, and left occipital lobes. Small regions of chronic encephalomalacia in the parasagittal aspects of the bilateral parietal lobes. Moderate underlying microangiopathy and generalized cerebral volume loss. Chest X-Ray 11/14/22 15:52 IMPRESSION: Low lung volumes, bibasilar subsegmental atelectasis and slight elevation of the right hemidiaphragm similar to previous exam. Modified Barium Swallow 11/21/22 15:11 IMPRESSION: Laryngeal penetration on several occasions but no laryngeal aspiration. Mild retention of solid food in the valleculae which cleared with subsequent oral administration of water or thin barium. Correlate with speech therapy results. Orbit CT 01/23/23 14:05 IMPRESSION: - No definite significant intraorbital soft tissue findings to assessment is limited on a noncontrast CT of the orbits. No retrobulbar mass lesions and no cellulitic changes appreciated. - There are large fluid levels within the left maxillary sinus and within the right frontal sinus the can be correlated for clinical signs of acute sinusitis. - A peripherally ossified structure extending from the dorsal margin of the right nasolacrimal duct into the right maxillary sinus is stable when compared to examinations dated back to 08/24/2008 favoring a benign etiology. Cervical Spine CT 02/14/23 22:15 IMPRESSION: 1. No acute intracranial abnormality. Stable postsurgical changes with right frontotemporal encephalomalacia, global volume loss, and extraocular dilatation of the right lateral ventricle. 2. No cervical spine fracture or traumatic malalignment. Head CT 02/14/23 22:15 IMPRESSION: 1. No acute intracranial abnormality. Stable postsurgical changes with right frontotemporal encephalomalacia, global volume loss, and extraocular dilatation of the right lateral ventricle. 2. No cervical spine fracture or traumatic malalignment. Hip/Pelvis X-Ray 02/14/23 22:25 IMPRESSION: Moderate degenerative changes of the right hip with loss of superolateral joint space. Similar chronic posttraumatic deformity of the right femoral neck with chronic foreshortening. Status post left total hip arthroplasty in unchanged alignment however the lack of a crosstable lateral view limits assessment for dislocation. No acute fracture or dislocation appreciated on the available views. Foot X-Ray 02/22/23 13:50 IMPRESSION: * Postsurgical changes of arthrodesis first metatarsophalangeal joint. * There is developed large osteophyte from the head of the first metatarsal protruding laterally abutting the head of the second metatarsal. This might be the source of patient's pain. * Underlying degenerative osteoarthritis. Foot X-Ray 02/23/23 14:11 IMPRESSION: Mild degenerative changes MTP, PIP and DIP joints. No visible acute fracture or dislocation seen. Medications Medications Current Medications Acetaminophen (Acetaminophen 325 Mg Tablet) 975 mg PO Q6H PRN PRN Reason: Headache/Pain Mild Scale (1-3) Last Admin: 03/16/23 12:11 Dose: 975 mg Albuterol Sulfate (Albuterol Sulfate 90 Mcg 8 Gm Inhaler) 2 puff INHALE Q6H PRN PRN Reason: Wheezing Alprazolam (Alprazolam 0.25 Mg Tablet) 0.125 mg PO TID PRN PRN Reason: Anxiety Last Admin: 03/16/23 12:11 Dose: 0.125 mg Alprazolam (Alprazolam 0.5 Mg Tablet) 0.5 mg PO BEDTIME TAZ Amlodipine Besylate (Amlodipine Besylate 5 Mg Tablet) 5 mg PO DAILY TAZ; Protocol Last Admin: 03/16/23 08:42 Dose: 5 mg Artificial Tears (Artificial Tears 15 Ml Drops) 1 drop EYE-BOTH Q2H PRN PRN Reason: Dry Eyes Last Admin: 03/14/23 18:08 Dose: 1 drop Bisacodyl (Bisacodyl 10 Mg Supp.Rect) 10 mg [place] DAILY PRN PRN Reason: Constipation Clotrimazole (Clotrimazole 1 % Cream 15 Gm Tube) 1 appl TOPICAL BID TAZ; Protocol Last Admin: 03/16/23 09:40 Dose: Not Given Divalproex Sodium (Divalproex Sodium 250 Mg Tablet.Dr) 750 mg PO BEDTIME TAZ Last Admin: 03/15/23 20:15 Dose: 750 mg Guaifenesin/Dextromethorphan (Guaifenesin Dm 100/10/5 Ml 5 Ml Syrup) 5 ml PO Q4H PRN PRN Reason: cough Last Admin: 03/13/23 03:34 Dose: 5 ml Hydrocortisone (Hydrocortisone 1 % Cream 28.35 Gm Tube) 1 appl TOPICAL BID PRN; Protocol PRN Reason: itchy feet Last Admin: 03/09/23 20:43 Dose: 1 appl Hydroxyzine HCl (Hydroxyzine Hcl 25 Mg Tablet) 25 mg PO Q4H PRN PRN Reason: Anxiety Last Admin: 03/14/23 05:50 Dose: 25 mg Ibuprofen (Ibuprofen 600 Mg Tablet) 600 mg PO Q6H PRN PRN Reason: Pain, Moderate (Pain Scale 4-6 Last Admin: 03/12/23 17:29 Dose: 600 mg Lamotrigine (Lamotrigine 100 Mg Tablet) 100 mg PO BID [facility] Last Admin: 03/16/23 08:42 Dose: 100 mg Latanoprost (Latanoprost 0.005 % Ophth No 2.5 Ml Drops) 1 drop EYE-BOTH BEDTIM E TAZ Last Admin: 03/15/23 20:16 Dose: 1 drop Lidocaine (Lidocaine 5 % Ointment 35 Gm) 1 appl TOPICAL Q6H PRN; Protocol PRN Reason: pain r foot Last Admin: 03/15/23 20:20 Dose: 1 appl Magnesium Hydroxide (Milk Of Magnesia 30 Ml Oral.Susp) 30 ml PO BID PRN PRN Reason: constipation, stomach/GI upset Last Admin: 03/08/23 13:49 Dose: 30 ml Multi-Ingred Cream/Lotion/Oil/Oint (Mineral Oil/Petrolatum,White 106 Gm Tube) 1 appl TOPICAL BID PRN; Protocol PRN Reason: dry skin Nortriptyline HCl (Nortriptyline Hcl 25 Mg Capsule) 50 mg PO BEDTIME TAZ Last Admin: 03/15/23 20:14 Dose: 50 mg Nystatin (Nystatin Powder 15 Gm Bottle) 1 appl TOPICAL BID TAZ; Protocol Last Admin: 03/16/23 09:40 Dose: Not Given Olanzapine (Olanzapine 2.5 Mg Tablet) 2.5 mg PO Q4H PRN PRN Reason: anxiety/restlessness Last Admin: 03/13/23 14:08 Dose: 2.5 mg Olanzapine (Olanzapine 2.5 Mg Tablet) 2.5 mg PO DAILY TAZ Last Admin: 03/16/23 08:42 Dose: 2.5 mg Olanzapine (Olanzapine 5 Mg Tablet) 5 mg PO BEDTIME TAZ Last Admin: 03/15/23 20:14 Dose: 5 mg Polyethylene Glycol (Polyethylene Glycol 3350 17 Gm Powd.Pack) 17 gm PO BID TAZ Last Admin: 03/16/23 08:38 Dose: 17 gm Propranolol HCl (Propranolol Hcl 10 Mg Tablet) 10 mg PO TID TAZ; Protocol Last Admin: 03/16/23 08:42 Dose: 10 mg Senna/Docusate Sodium (Sennosides/Docusate Sodium Tablet) 2 tab PO BEDTIME [facility] Last Admin: 03/15/23 20:15 Dose: 2 tab Sodium Biphosphate/Sodium Phosphate (Sodium Phosphate,Crockett-Dibasic 133 Ml Enema) 133 ml [place] ONCE PRN PRN Reason: Constipation Sodium Chloride (Sodium Chloride 0.65 % Nasal 44 Ml Sprbtl) 1 spray NOSTRIL-B Q1H PRN PRN Reason: Nasal Congestion Last Admin: 02/26/23 21:14 Dose: 1 spray Tamsulosin HCl (Tamsulosin Hcl 0.4 Mg Capsule) 0.4 mg PO DAILY [facility] Last Admin: 03/16/23 08:42 Dose: 0.4 mg Trazodone HCl (Trazodone Hcl 100 Mg Tablet) 200 mg PO BEDTIME [facility] Last Admin: 03/15/23 20:15 Dose: 200 mg Venlafaxine HCl (Venlafaxine Hcl Er 75 Mg Cap.Er.24h) 75 mg PO DAILY [facility] Last Admin: 03/16/23 08:42 Dose: 75 mg Allergies Allergies Allergy/AdvReac Type Severity Reaction Status Date / Time fentanyl [FENTANYL] Allergy Intermediate unknown Verified 04/08/22 07:00 Assessment & Plan Assessment & Plan (1) Major depressive disorder, recurrent severe without psychotic features: Status: Acute Code(s): F33.2 - Major depressive disorder, recurrent severe without psychotic features (2) Cognitive and neurobehavioral dysfunction following brain injury: Status: Acute Code(s): G31.89 - Other specified degenerative diseases of nervous system; F09 - Unspecified mental disorder due to known physiological condition; S06.9X9S - Unspecified intracranial injury with loss of consciousness of unspecified duration, sequela (3) Personality disorder in adult: Status: Acute Code(s): F60.9 - Personality disorder, unspecified Plan ALPRAZOLAM 0.25 B.I.D. 0.5 BEDTIME OLANZAPINE ALSO 3 TIMES A DAY CONTINUE DEPAKOTE START PROPRANOLOL 10 T.I.D. THE PATIENT CONFRONTED REGARDING NEGATIVE TOXIC BEHAVIOR DIFFICULTY COPING AND NEGATIVE COMPLICATIONS TO HIS LIFE IF TY NUE VERBALLY AGGRESSIVE AND TOXIC BEHAVIOR WITH OTHERS DEVALUATION ENCOURAGE REFLECTION STRESS MANAGEMENT COPING STRATEGIES 03/07 continue same treatment 03/08 continue same treatment 03/09 continue same treatment 03/10/23 Lower alprazolam .125 mg bid hold afternoon olanzapine secondary to slurring o versedation cont propranolol 03/11/23 Pt doing better less sedated struggles to maintain pos attitude 03/13 continue tx. 03/14: stable presentation, no change in mgmt. 03/15: appears sedated. no change in mgmt today. to F/U with attending tomorrow re meds for anxiety. 03/16 continue tx. Reason for continued inpatient stay Substantial Risk for: stable for discharge Time Spent With Patient Time: Total time managing care of this patient today ____ minutes.
[2023-03-16 19:00] VITALS: BP 150/73; PULSE 63; RESP 18; TEMP 36.1; O2SAT 96
[2023-03-16] MEDS: OLANZapine 5 MG TABLET PO (20:23)
[2023-03-16] MEDS: traZODone HCL 100 MG TABLET 200 MG PO (20:23)
[2023-03-16] MEDS: Sennosides/Docusate Sodium TABLET 2 TAB PO (20:23)
[2023-03-16] MEDS: Nortriptyline HCl 25 MG CAPSULE 50 MG PO (20:23)
[2023-03-16] MEDS: Divalproex Sodium 250 MG TABLET.DR 750 MG PO (20:24)
[2023-03-16] MEDS: ALPRAZolam 0.5 MG TABLET PO (20:24)
[2023-03-16] MEDS: Latanoprost 0.005 % Ophth Sol 2.5 ML DROPS 1 DROP EYE-BOTH (20:30)
[2023-03-16] MEDS: Nystatin Powder 15 GM BOTTLE 1 APPL TOPICAL (20:31)
[2023-03-16] MEDS: Clotrimazole 1 % Cream 15 GM TUBE 1 APPL TOPICAL (20:31)
[2023-03-17] MEDS: ALPRAZolam 0.25 MG TABLET 0.125 MG PO ×2 (01:12→14:07)
[2023-03-17] MEDS: Acetaminophen 325 MG TABLET 975 MG PO ×2 (01:15→21:55)
[2023-03-17] MEDS: hydrOXYzine HCL 25 MG TABLET PO ×2 (03:59→17:26)
[2023-03-17 06:00] VITALS: BP 173/88; PULSE 75; RESP 18; TEMP 36.1; O2SAT 98
[2023-03-17] MEDS: polyethylene glycoL 3350 17 GM POWD.PACK PO (09:08)
[2023-03-17] MEDS: Tamsulosin HCL 0.4 MG CAPSULE PO (09:09)
[2023-03-17] MEDS: OLANZapine 2.5 MG TABLET PO (09:09)
[2023-03-17] MEDS: Propranolol HCL 10 MG TABLET PO ×3 (09:09→21:40)
[2023-03-17] MEDS: Venlafaxine HCl ER 75 MG CAP.ER.24H PO (09:10)
[2023-03-17] MEDS: amLODIPine Besylate 5 MG TABLET PO (09:10)
[2023-03-17] MEDS: lamoTRIgine 100 MG TABLET PO ×2 (09:11→21:40)
--- NOTE | 2023-03-17 17:29 | P.PNPSI_ITS ---
Subjective Subjective Date of Service: 03/17/23 Reason For Visit: Depression hopelessness irritability Subjective Notes: Conditional Voluntary Interim History: Pt he is frustrated with care provided by some staff. Pt hopes to transition to independent living soon. He denies SI/HI Taking medications as prescribed. no behavioral concerns. Per nursing, pt kicked staff when staff trying to provide care as pt thought it took too long. Medication Compliance: Yes Side effects from medications: No Review of Systems Review of Systems itchy feet and right foot discomfort Yes all other systems are reviewed and are negative, Unobtainable due to mental condition and Unobtainable due to mental status Mental Status Exam Mental Status Exam Narrative: Patient Appearance: Fatigued and Appropriate Patient Orientation: Person, Place and Situation Level of Consciousness: Sedated Patient Behavior: Guarded, Passive, Fatigued and Distractible Behavior Comments: Mood Description: Withdrawn and Anxious Affect Description: Constricted and Nervous Patient Cognition Impaired: Yes Ability to Follow Directions: Good Speech Pattern: Clear and Slurred Memory Description: Intact Diagnostics Vital Signs (24Hr): Vital Signs - 24 hr 03/16/23 19:00 03/17/23 06:00 Temperature 97 F 96.9 F Pulse Rate 63 75 Respiratory Rate 18 18 Blood Pressure 150/73 H 173/88 H Pulse Oximetry 96 98 Oxygen Delivery Method Room Air Room Air BMI result Body Mass Index 30.8 Labs 03/04/23 07:45 03/04/23 07:45 Imaging Radiology Impressions: ITS Impressions Chest X-Ray 10/20/22 15:45 IMPRESSION: 1. Low lung volumes with bibasilar linear disc atelectasis versus scarring. 2. No airspace consolidation or effusion. Head CT 11/08/22 12:29 IMPRESSION: No acute intracranial hemorrhage or territorial infarction. Stable chronic postoperative changes with gliosis and encephalomalacia in the right frontal and right temporal lobes. Ex vacuo dilatation of the ventricles and diffuse parenchymal volume loss. Right-sided craniotomy changes. Chest X-Ray 11/12/22 10:32 IMPRESSION: Hypoexpanded lungs with bibasilar platelike atelectasis. Brain MRI 11/12/22 13:15 IMPRESSION: 1. No demonstrated acute intracranial abnormalities. 2. Chronic encephalomalacia of the right temporal, right frontal, and left occipital lobes. Small regions of chronic encephalomalacia in the parasagittal aspects of the bilateral parietal lobes. Moderate underlying microangiopathy and generalized cerebral volume loss. Chest X-Ray 11/14/22 15:52 IMPRESSION: Low lung volumes, bibasilar subsegmental atelectasis and slight elevation of the right hemidiaphragm similar to previous exam. Modified Barium Swallow 11/21/22 15:11 IMPRESSION: Laryngeal penetration on several occasions but no laryngeal aspiration. Mild retention of solid food in the valleculae which cleared with subsequent oral administration of water or thin barium. Correlate with speech therapy results. Orbit CT 01/23/23 14:05 IMPRESSION: - No definite significant intraorbital soft tissue findings to assessment is limited on a noncontrast CT of the orbits. No retrobulbar mass lesions and no cellulitic changes appreciated. - There are large fluid levels within the left maxillary sinus and within the right frontal sinus the can be correlated for clinical signs of acute sinusitis. - A peripherally ossified structure extending from the dorsal margin of the right nasolacrimal duct into the right maxillary sinus is stable when compared to examinations dated back to 08/24/2008 favoring a benign etiology. Cervical Spine CT 02/14/23 22:15 IMPRESSION: 1. No acute intracranial abnormality. Stable postsurgical changes with right frontotemporal encephalomalacia, global volume loss, and extraocular dilatation of the right lateral ventricle. 2. No cervical spine fracture or traumatic malalignment. Head CT 02/14/23 22:15 IMPRESSION: 1. No acute intracranial abnormality. Stable postsurgical changes with right frontotemporal encephalomalacia, global volume loss, and extraocular dilatation of the right lateral ventricle. 2. No cervical spine fracture or traumatic malalignment. Hip/Pelvis X-Ray 02/14/23 22:25 IMPRESSION: Moderate degenerative changes of the right hip with loss of superolateral joint space. Similar chronic posttraumatic deformity of the right femoral neck with chronic foreshortening. Status post left total hip arthroplasty in unchanged alignment however the lack of a crosstable lateral view limits assessment for dislocation. No acute fracture or dislocation appreciated on the available views. Foot X-Ray 02/22/23 13:50 IMPRESSION: * Postsurgical changes of arthrodesis first metatarsophalangeal joint. * There is developed large osteophyte from the head of the first metatarsal protruding laterally abutting the head of the second metatarsal. This might be the source of patient's pain. * Underlying degenerative osteoarthritis. Foot X-Ray 02/23/23 14:11 IMPRESSION: Mild degenerative changes MTP, PIP and DIP joints. No visible acute fracture or dislocation seen. Medications Medications Current Medications Acetaminophen (Acetaminophen 325 Mg Tablet) 975 mg PO Q6H PRN PRN Reason: Headache/Pain Mild Scale (1-3) Last Admin: 03/17/23 01:15 Dose: 975 mg Albuterol Sulfate (Albuterol Sulfate 90 Mcg 8 Gm Inhaler) 2 puff INHALE Q6H PRN PRN Reason: Wheezing Alprazolam (Alprazolam 0.25 Mg Tablet) 0.125 mg PO TID PRN PRN Reason: Anxiety Last Admin: 03/17/23 14:07 Dose: 0.125 mg Alprazolam (Alprazolam 0.5 Mg Tablet) 0.5 mg PO BEDTIME TAZ Last Admin: 03/16/23 20:24 Dose: 0.5 mg Amlodipine Besylate (Amlodipine Besylate 5 Mg Tablet) 5 mg PO DAILY TAZ; Protocol Last Admin: 03/17/23 09:10 Dose: 5 mg Artificial Tears (Artificial Tears 15 Ml Drops) 1 drop EYE-BOTH Q2H PRN PRN Reason: Dry Eyes Last Admin: 03/14/23 18:08 Dose: 1 drop Bisacodyl (Bisacodyl 10 Mg Supp.Rect) 10 mg [place] DAILY PRN PRN Reason: Constipation Clotrimazole (Clotrimazole 1 % Cream 15 Gm Tube) 1 appl TOPICAL BID TAZ; Protocol Last Admin: 03/17/23 09:18 Dose: Not Given Divalproex Sodium (Divalproex Sodium 250 Mg Tablet.Dr) 750 mg PO BEDTIME TAZ Last Admin: 03/16/23 20:24 Dose: 750 mg Guaifenesin/Dextromethorphan (Guaifenesin Dm 100/10/5 Ml 5 Ml Syrup) 5 ml PO Q4H PRN PRN Reason: cough Last Admin: 03/13/23 03:34 Dose: 5 ml Hydrocortisone (Hydrocortisone 1 % Cream 28.35 Gm Tube) 1 appl TOPICAL BID PRN; Protocol PRN Reason: itchy feet Last Admin: 03/09/23 20:43 Dose: 1 appl Hydroxyzine HCl (Hydroxyzine Hcl 25 Mg Tablet) 25 mg PO Q4H PRN PRN Reason: Anxiety Last Admin: 03/17/23 17:26 Dose: 25 mg Ibuprofen (Ibuprofen 600 Mg Tablet) 600 mg PO Q6H PRN PRN Reason: Pain, Moderate (Pain Scale 4-6 Last Admin: 03/12/23 17:29 Dose: 600 mg Lamotrigine (Lamotrigine 100 Mg Tablet) 100 mg PO BID TAZ Last Admin: 03/17/23 09:11 Dose: 100 mg Latanoprost (Latanoprost 0.005 % Ophth No 2.5 Ml Drops) 1 drop EYE-BOTH BEDTIME TAZ Last Admin: 03/16/23 20:30 Dose: 1 drop Lidocaine (Lidocaine 5 % Ointment 35 Gm) 1 appl TOPICAL Q6H PRN; Protocol PRN Reason: pain r foot Last Admin: 03/15/23 20:20 Dose: 1 appl Magnesium Hydroxide (Milk Of Magnesia 30 Ml Oral.Susp) 30 ml PO BID PRN PRN Reason: constipation, stomach/GI upset Last Admin: 03/08/23 13:49 Dose: 30 ml Multi-Ingred Cream/Lotion/Oil/Oint (Mineral Oil/Petrolatum,White 106 Gm Tube) 1 appl TOPICAL BID PRN; Protocol PRN Reason: dry skin Nortriptyline HCl (Nortriptyline Hcl 25 Mg Capsule) 50 mg PO BEDTIME TAZ Last Admin: 03/16/23 20:23 Dose: 50 mg Nystatin (Nystatin Powder 15 Gm Bottle) 1 appl TOPICAL BID TAZ; Protocol Last Admin: 03/17/23 09:18 Dose: Not Given Olanzapine (Olanzapine 2.5 Mg Tablet) 2.5 mg PO Q4H PRN PRN Reason: anxiety/restlessness Last Admin: 03/13/23 14:08 Dose: 2.5 mg Olanzapine (Olanzapine 2.5 Mg Tablet) 2.5 mg PO DAILY TAZ Last Admin: 03/17/23 09:09 Dose: 2.5 mg Olanzapine (Olanzapine 5 Mg Tablet) 5 mg PO BEDTIME TAZ Last Admin: 03/16/23 20:23 Dose: 5 mg Polyethylene Glycol (Polyethylene Glycol 3350 17 Gm Powd.Pack) 17 gm PO BID TAZ Last Admin: 03/17/23 09:08 Dose: 17 gm Propranolol HCl (Propranolol Hcl 10 Mg Tablet) 10 mg PO TID TAZ; Protocol Last Admin: 03/17/23 14:03 Dose: 10 mg Senna/Docusate Sodium (Sennosides/Docusate Sodium Tablet) 2 tab PO BEDTIME [facility] Last Admin: 03/16/23 20:23 Dose: 1 tab Sodium Biphosphate/Sodium Phosphate (Sodium Phosphate,[place]ynn-Dibasic 133 Ml Enema) 133 ml [place] ONCE PRN PRN Reason: Constipation Sodium Chloride (Sodium Chloride 0.65 % Nasal 44 Ml Sprbtl) 1 spray NOSTRIL-B Q1H PRN PRN Reason: Nasal Congestion Last Admin: 02/26/23 21:14 Dose: 1 spray Tamsulosin HCl (Tamsulosin Hcl 0.4 Mg Capsule) 0.4 mg PO DAILY [facility] Last Admin: 03/17/23 09:09 Dose: 0.4 mg Trazodone HCl (Trazodone Hcl 100 Mg Tablet) 200 mg PO BEDTIME [facility] Last Admin: 03/16/23 20:23 Dose: 200 mg Venlafaxine HCl (Venlafaxine Hcl Er 75 Mg Cap.Er.24h) 75 mg PO DAILY [facility] Last Admin: 03/17/23 09:10 Dose: 75 mg Allergies Allergies Allergy/AdvReac Type Severity Reaction Status Date / Time fentanyl [FENTANYL] Allergy Intermediate unknown Verified 04/08/22 07:00 Assessment & Plan Assessment & Plan (1) Major depressive disorder, recurrent severe without psychotic features: Status: Acute Code(s): F33.2 - Major depressive disorder, recurrent severe without psychotic features (2) Cognitive and neurobehavioral dysfunction following brain injury: Status: Acute Code(s): G31.89 - Other specified degenerative diseases of nervous system; F09 - Unspecified mental disorder due to known physiological condition; S06.9X9S - Unspecified intracranial injury with loss of consciousness of unspecified duration, sequela (3) Personality disorder in adult: Status: Acute Code(s): F60.9 - Personality disorder, unspecified Plan ALPRAZOLAM 0.25 B.I.D. 0.5 BEDTIME OLANZAPINE ALSO 3 TIMES A DAY CONTINUE DEPAKOTE START PROPRANOLOL 10 T.I.D. THE PATIENT CONFRONTED REGARDING NEGATIVE TOXIC BEHAVIOR DIFFICULTY COPING AND NEGATIVE COMPLICATIONS TO HIS LIFE IF CONTINUE VERBALLY AGGRESSIVE AND TOXIC BEHAVIOR WITH OTHERS DEVALUATION ENCOURAGE REFLECTION STRESS MANAGEMENT COPING STRATEGIES 03/07 continue same treatment 03/08 continue same treatment 03/09 continue same treatment 03/10/23 Lower alprazolam .125 mg bid hold afternoon olanzapine secondary to slurring oversedation cont propranolol 03/11/23 Pt doing better less sedated struggles to maintain pos attitude 03/13 continue tx. 03/14: stable presentation, no change in mgmt. 03/15: appears sedated. no change in mgmt today. to F/U with attending tomorrow re meds for anxiety. 03/16 continue tx. 03/17 continue tx. Reason for continued inpatient stay Substantial Risk for: stable for discharge Time Spent With Patient Time: Total time managing care of this patient today ____ minutes.
[2023-03-17 18:00] VITALS: BP 149/72; PULSE 63; RESP 18; TEMP 36.6; O2SAT 96
[2023-03-17] MEDS: Divalproex Sodium 250 MG TABLET.DR 750 MG PO (21:39)
[2023-03-17] MEDS: Sennosides/Docusate Sodium TABLET 2 TAB PO (21:39)
[2023-03-17] MEDS: Nortriptyline HCl 25 MG CAPSULE 50 MG PO (21:39)
[2023-03-17] MEDS: OLANZapine 5 MG TABLET PO (21:40)
[2023-03-17] MEDS: ALPRAZolam 0.5 MG TABLET PO (21:40)
[2023-03-17] MEDS: traZODone HCL 100 MG TABLET 200 MG PO (21:40)
[2023-03-17] MEDS: Latanoprost 0.005 % Ophth Sol 2.5 ML DROPS 1 DROP EYE-BOTH (21:48)
[2023-03-17] MEDS: Clotrimazole 1 % Cream 15 GM TUBE 1 APPL TOPICAL (21:49)
[2023-03-17] MEDS: Nystatin Powder 15 GM BOTTLE 1 APPL TOPICAL (21:49)
[2023-03-18] MEDS: Acetaminophen 325 MG TABLET 975 MG PO ×2 (05:07→21:43)
[2023-03-18] MEDS: hydrOXYzine HCL 25 MG TABLET PO (05:15)
[2023-03-18 07:30] VITALS: BP 158/72; PULSE 65; RESP 16; TEMP 35.6; O2SAT 95
[2023-03-18] MEDS: Venlafaxine HCl ER 75 MG CAP.ER.24H PO (10:47)
[2023-03-18] MEDS: amLODIPine Besylate 5 MG TABLET PO (10:47)
[2023-03-18] MEDS: Tamsulosin HCL 0.4 MG CAPSULE PO (10:48)
[2023-03-18] MEDS: OLANZapine 2.5 MG TABLET PO (10:48)
[2023-03-18] MEDS: Propranolol HCL 10 MG TABLET PO ×3 (10:48→21:17)
[2023-03-18] MEDS: lamoTRIgine 100 MG TABLET PO (10:48)
[2023-03-18] MEDS: polyethylene glycoL 3350 17 GM POWD.PACK PO (10:48)
[2023-03-18 18:00] VITALS: BP 135/71; PULSE 71; RESP 18; TEMP 36.6; O2SAT 95
--- NOTE | 2023-03-18 19:33 | P.PNPSI_ITS ---
Subjective Subjective Date of Service: 03/18/23 Reason For Visit: Depression hopelessness irritability Subjective Notes: Conditional Voluntary Interim History: Pt reports feeling saddened by news that his brother continues to decompensate in hospice. Pt hopes to transition to independent living soon- frustration about how his demands not met as soon as he expects them- discussed realistic expectations and encouraged him to be in independent in areas that he is capable of such as covering himself with blanket. He denies SI/HI Taking medications as prescribed. no behavioral concerns. Medication Compliance: Yes Side effects from medications: No Attending Groups: Intermittent Review of Systems Review of Systems itchy feet and right foot discomfort Yes all other systems are reviewed and are negative, Unobtainable due to mental condition and Unobtainable due to mental status Mental Status Exam Mental Status Exam Narrative: Patient Appearance: Fatigued and Appropriate Patient Orientation: Person, Place and Situation Level of Consciousness: Sedated Patient Behavior: Guarded, Passive, Fatigued and Distractible Behavior Comments: Mood Description: Withdrawn and Anxious Affect Description: Constricted and Nervous Patient Cognition Impaired: Yes Ability to Follow Directions: Good Speech Pattern: Clear and Slurred Memory Description: Intact Diagnostics Vital Signs (24Hr): Vital Signs - 24 hr 03/18/23 07:30 Temperature 96.1 F L Pulse Rate 65 Respiratory Rate 16 Blood Pressure 158/72 H Pulse Oximetry 95 Oxygen Delivery Method Room Air BMI result Body Mass Index 30.8 Labs 03/04/23 07:45 03/04/23 07:45 Imaging Radiology Impressions: ITS Impressions Chest X-Ray 10/20/22 15:45 IMPRESSION: 1. Low lung volumes with bibasilar linear disc atelectasis versus scarring. 2. No airspace consolidation or effusion. Head CT 11/08/22 12:29 IMPRESSION: No acute intracranial hemorrhage or territorial infarction. Stable chronic postoperative changes with gliosis and encephalomalacia in the right frontal and right temporal lobes. Ex vacuo dilatation of the ventricles and diffuse parenchymal volume loss. Right-sided craniotomy changes. Chest X-Ray 11/12/22 10:32 IMPRESSION: Hypoexpanded lungs with bibasilar platelike atelectasis. Brain MRI 11/12/22 13:15 IMPRESSION: 1. No demonstrated acute intracranial abnormalities. 2. Chronic encephalomalacia of the right temporal, right frontal, and left occipital lobes. Small regions of chronic encephalomalacia in the parasagittal aspects of the bilateral parietal lobes. Moderate underlying microangiopathy and generalized cerebral volume loss. Chest X-Ray 11/14/22 15:52 IMPRESSION: Low lung volumes, bibasilar subsegmental atelectasis and slight elevation of the right hemidiaphragm similar to previous exam. Modified Barium Swallow 11/21/22 15:11 IMPRESSION: Laryngeal penetration on several occasions but no laryngeal aspiration. Mild retention of solid food in the valleculae which cleared with subsequent oral administration of water or thin barium. Correlate with speech therapy results. Orbit CT 01/23/23 14:05 IMPRESSION: - No definite significant intraorbital soft tissue findings to assessment is limited on a noncontrast CT of the orbits. No retrobulbar mass lesions and no cellulitic changes appreciated. - There are large fluid levels within the left maxillary sinus and within the right frontal sinus the can be correlated for clinical signs of acute sinusitis. - A peripherally ossified structure extending from the dorsal margin of the right nasolacrimal duct into the right maxillary sinus is stable when compared to examinations dated back to 08/24/2008 favoring a benign etiology. Cervical Spine CT 02/14/23 22:15 IMPRESSION: 1. No acute intracranial abnormality. Stable postsurgical changes with right frontotemporal encephalomalacia, global volume loss, and extraocular dilatation of the right lateral ventricle. 2. No cervical spine fracture or traumatic malalignment. Head CT 02/14/23 22:15 IMPRESSION: 1. No acute intracranial abnormality. Stable postsurgical changes with right frontotemporal encephalomalacia, global volume loss, and extraocular dilatation of the right lateral ventricle. 2. No cervical spine fracture or traumatic malalignment. Hip/Pelvis X-Ray 02/14/23 22:25 IMPRESSION: Moderate degenerative changes of the right hip with loss of superolateral joint space. Similar chronic posttraumatic deformity of the right femoral neck with chronic foreshortening. Status post left total hip arthroplasty in unchanged alignment however the lack of a crosstable lateral view limits assessment for dislocation. No acute fracture or dislocation appreciated on the available views. Foot X-Ray 02/22/23 13:50 IMPRESSION: * Postsurgical changes of arthrodesis first metatarsophalangeal joint. * There is developed large osteophyte from the head of the first metatarsal protruding laterally abutting the head of the second metatarsal. This might be the source of patient's pain. * Underlying degenerative osteoarthritis. Foot X-Ray 02/23/23 14:11 IMPRESSION: Mild degenerative changes MTP, PIP and DIP joints. No visible acute fracture or dislocation seen. Medications Medications Current Medications Acetaminophen (Acetaminophen 325 Mg Tablet) 975 mg PO Q6H PRN PRN Reason: Headache/Pain Mild Scale (1-3) Last Admin: 03/18/23 05:07 Dose: 975 mg Albuterol Sulfate (Albuterol Sulfate 90 Mcg 8 Gm Inhaler) 2 puff INHALE Q6H PRN PRN Reason: Wheezing Alprazolam (Alprazolam 0.25 Mg Tablet) 0.125 mg PO TID PRN PRN Reason: Anxiety Last Admin: 03/17/23 14:07 Dose: 0.125 mg Alprazolam (Alprazolam 0.5 Mg Tablet) 0.5 mg PO BEDTIME TAZ Last Admin: 03/17/23 21:40 Dose: 0.5 mg Amlodipine Besylate (Amlodipine Besylate 5 Mg Tablet) 5 mg PO DAILY TAZ; Protocol Last Admin: 03/18/23 10:47 Dose: 5 mg Artificial Tears (Artificial Tears 15 Ml Drops) 1 drop EYE-BOTH Q2H PRN PRN Reason: Dry Eyes Last Admin: 03/14/23 18:08 Dose: 1 drop Bisacodyl (Bisacodyl 10 Mg Supp.Rect) 10 mg DC DAILY PRN PRN Reason: Constipation Clotrimazole (Clotrimazole 1 % Cream 15 Gm Tube) 1 appl TOPICAL BID TAZ; Protocol Last Admin: 03/18/23 11:01 Dose: Not Given Divalproex Sodium (Divalproex Sodium 250 Mg Tablet.Dr) 750 mg PO BEDTIME TZA Last Admin: 03/17/23 21:39 Dose: 750 mg Guaifenesin/Dextromethorphan (Guaifenesin Dm 100/10/5 Ml 5 Ml Syrup) 5 ml PO Q4H PRN PRN Reason: cough Last Admin: 03/13/23 03:34 Dose: 5 ml Hydrocortisone (Hydrocortisone 1 % Cream 28.35 Gm Tube) 1 appl TOPICAL BID PRN; Protocol PRN Reason: itchy feet Last Admin: 03/09/23 20:43 Dose: 1 appl Hydroxyzine HCl (Hydroxyzine Hcl 25 Mg Tablet) 25 mg PO Q4H PRN PRN Reason: Anxiety Last Admin: 03/18/23 05:15 Dose: 25 mg Ibuprofen (Ibuprofen 600 Mg Tablet) 600 mg PO Q6H PRN PRN Reason: Pain, Moderate (Pain Scale 4-6 Last Admin: 03/12/23 17:29 Dose: 600 mg Lamotrigine (Lamotrigine 100 Mg Tablet) 100 mg PO BID TAZ Last Admin: 03/18/23 10:48 Dose: 100 mg Latanoprost (Latanoprost 0.005 % Ophth No 2.5 Ml Drops) 1 drop EYE-BOTH BEDTIME TAZ Last Admin: 03/17/23 21:48 Dose: 1 drop Lidocaine (Lidocaine 5 % Ointment 35 Gm) 1 appl TOPICAL Q6H PRN; Protocol PRN Reason: pain r foot Last Admin: 03/15/23 20:20 Dose: 1 appl Magnesium Hydroxide (Milk Of Magnesia 30 Ml Oral.Susp) 30 ml PO BID PRN PRN Reason: constipation, stomach/GI upset Last Admin: 03/08/23 13:49 Dose: 30 ml Multi-Ingred Cream/Lotion/Oil/Oint (Mineral Oil/Petrolatum,White 106 Gm Tube) 1 appl TOPICAL BID PRN; Protocol PRN Reason: dry skin Nortriptyline HCl (Nortriptyline Hcl 25 Mg Capsule) 50 mg PO BEDTIME TAZ Last Admin: 03/17/23 21:39 Dose: 50 mg Nystatin (Nystatin Powder 15 Gm Bottle) 1 appl TOPICAL BID TAZ; Protocol Last Admin: 03/18/23 10:49 Dose: Not Given Olanzapine (Olanzapine 2.5 Mg Tablet) 2.5 mg PO Q4H PRN PRN Reason: anxiety/restlessness Last Admin: 03/13/23 14:08 Dose: 2.5 mg Olanzapine (Olanzapine 2.5 Mg Tablet) 2.5 mg PO DAILY TAZ Last Admin: 03/18/23 10:48 Dose: 2.5 mg Olanzapine (Olanzapine 5 Mg Tablet) 5 mg PO BEDTIME TAZ Last Admin: 03/17/23 21:40 Dose: 5 mg Polyethylene Glycol (Polyethylene Glycol 3350 17 Gm Powd.Pack) 17 gm PO BID TAZ Last Admin: 03/18/23 10:48 Dose: 17 gm Propranolol HCl (Propranolol Hcl 10 Mg Tablet) 10 mg PO TID [facility]; Protocol Last Admin: 03/18/23 14:44 Dose: 10 mg Senna/Docusate Sodium (Sennosides/Docusate Sodium Tablet) 2 tab PO BEDTIME [facility] Last Admin: 03/17/23 21:39 Dose: 2 tab Sodium Biphosphate/Sodium Phosphate (Sodium Phosphate,[place]-Dibasic 133 Ml Enema) 133 ml DC ONCE PRN PRN Reason: Constipation Sodium Chloride (Sodium Chloride 0.65 % Nasal 44 Ml Sprbtl) 1 spray NOSTRIL-B Q1H PRN PRN Reason: Nasal Congestion Last Admin: 02/26/23 21:14 Dose: 1 spray Tamsulosin HCl (Tamsulosin Hcl 0.4 Mg Capsule) 0.4 mg PO DAILY [facility] Last Admin: 03/18/23 10:48 Dose: 0.4 mg Trazodone HCl (Trazodone Hcl 100 Mg Tablet) 200 mg PO BEDTIME [facility] Last Admin: 03/17/23 21:40 Dose: 200 mg Venlafaxine HCl (Venlafaxine Hcl Er 75 Mg Cap.Er.24h) 75 mg PO DAILY [facility] Last Admin: 03/18/23 10:47 Dose: 75 mg Allergies Allergies Allergy/AdvReac Type Severity Reaction Status Date / Time fentanyl [FENTANYL] Allergy Intermediate unknown Verified 04/08/22 07:00 Assessment & Plan Assessment & Plan (1) Major depressive disorder, recurrent severe without psychotic features: Status: Acute Code(s): F33.2 - Major depressive disorder, recurrent severe without psychotic features (2) Cognitive and neurobehavioral dysfunction following brain injury: Status: Acute Code(s): G31.89 - Other specified degenerative diseases of nervous system; F09 - Unspecified mental disorder due to known physiological condition; S06.9X9S - Unspecified intracranial injury with loss of consciousness of unspecified durat ion, sequela (3) Personality disorder in adult: Status: Acute Code(s): F60.9 - Personality disorder, unspecified Plan ALPRAZOLAM 0.25 B.I.D. 0.5 BEDTIME OLANZAPINE ALSO 3 TIMES A DAY CONTINUE DEPAKOTE START PROPRANOLOL 10 T.I.D. THE PATIENT CONFRONTED REGARDING NEGATIVE TOXIC BEHAVIOR DIFFICULTY COPING AND NEGATIVE COMPLICATIONS TO HIS LIFE IF CONTINUE VERBALLY AGGRESSIVE AND TOXIC BEHAVIOR WITH OTHERS DEVALUATION ENCOURAGE REFLECTION STRESS MANAGEMENT COPING STRATEGIES 03/07 continue same treatment 03/08 continue same treatment 03/09 continue same treatment 03/10/23 Lower alprazolam .125 mg bid hold afternoon olanzapine secondary to slurring oversedation cont propranolol 03/11/23 Pt doing better less sedated struggles to maintain pos attitude 03/13 continue tx. 03/14: stable presentation, no change in mgmt. 03/15: appears sedated. no change in mgmt today. to F/U with attending tomorrow re meds for anxiety. 03/16 continue tx. 03/17 continue tx. 03/18 continue tx. Reason for continued inpatient stay Substantial Risk for: inability to function Time Spent With Patient Time: Total time managing care of this patient today ____ minutes.
[2023-03-18] MEDS: Nortriptyline HCl 25 MG CAPSULE 50 MG PO (21:07)
[2023-03-18] MEDS: traZODone HCL 100 MG TABLET 200 MG PO (21:07)
[2023-03-18] MEDS: Sennosides/Docusate Sodium TABLET 2 TAB PO (21:07)
[2023-03-18] MEDS: Divalproex Sodium 250 MG TABLET.DR 750 MG PO (21:07)
[2023-03-18] MEDS: ALPRAZolam 0.5 MG TABLET PO (21:08)
[2023-03-18] MEDS: Ondansetron ODT 4 MG TAB.RAPDIS TRANSLINGU (21:08)
[2023-03-18] MEDS: OLANZapine 5 MG TABLET PO (21:09)
[2023-03-18] MEDS: Clotrimazole 1 % Cream 15 GM TUBE 1 APPL TOPICAL (21:22)
[2023-03-18] MEDS: Nystatin Powder 15 GM BOTTLE 1 APPL TOPICAL (21:26)
[2023-03-18] MEDS: Lidocaine 5 % Ointment 35 GM 1 APPL TOPICAL (21:43)
[2023-03-18] MEDS: Latanoprost 0.005 % Ophth Sol 2.5 ML DROPS 1 DROP EYE-BOTH (23:48)
[2023-03-19 07:00] VITALS: BMI 30.2
[2023-03-19 07:30] VITALS: BP 116/69; PULSE 70; RESP 18; TEMP 36.2; O2SAT 97
[2023-03-19] MEDS: Venlafaxine HCl ER 75 MG CAP.ER.24H PO (08:31)
[2023-03-19] MEDS: amLODIPine Besylate 5 MG TABLET PO (08:31)
[2023-03-19] MEDS: Tamsulosin HCL 0.4 MG CAPSULE PO (08:31)
[2023-03-19] MEDS: polyethylene glycoL 3350 17 GM POWD.PACK PO (08:32)
[2023-03-19] MEDS: Propranolol HCL 10 MG TABLET PO ×3 (08:32→21:13)
[2023-03-19] MEDS: OLANZapine 2.5 MG TABLET PO (08:32)
[2023-03-19 18:00] VITALS: BP 122/66; PULSE 66; RESP 18; TEMP 36.1; O2SAT 95
[2023-03-19] MEDS: OLANZapine 5 MG TABLET PO (21:12)
[2023-03-19] MEDS: ALPRAZolam 0.5 MG TABLET PO (21:12)
[2023-03-19] MEDS: Divalproex Sodium 250 MG TABLET.DR 750 MG PO (21:12)
[2023-03-19] MEDS: Nortriptyline HCl 25 MG CAPSULE 50 MG PO (21:12)
[2023-03-19] MEDS: traZODone HCL 100 MG TABLET 200 MG PO (21:13)
[2023-03-19] MEDS: Sennosides/Docusate Sodium TABLET 2 TAB PO (21:13)
[2023-03-19] MEDS: Clotrimazole 1 % Cream 15 GM TUBE 1 APPL TOPICAL (21:40)
[2023-03-19] MEDS: Nystatin Powder 15 GM BOTTLE 1 APPL TOPICAL (21:41)
[2023-03-19] MEDS: Latanoprost 0.005 % Ophth Sol 2.5 ML DROPS 1 DROP EYE-BOTH (21:41)
[2023-03-19] MEDS: Lidocaine 5 % Ointment 35 GM 1 APPL TOPICAL (21:50)
[2023-03-20] MEDS: Acetaminophen 325 MG TABLET 975 MG PO ×2 (05:07→15:57)
[2023-03-20 06:00] VITALS: BP 134/82; PULSE 79; RESP 17; TEMP 36.1; O2SAT 95
--- NOTE | 2023-03-20 06:57 | P.PNPSI_ITS ---
Subjective Subjective Date of Service: 03/19/23 Reason For Visit: Depression hopelessness irritability Subjective Notes: Conditional Voluntary Interim History: Pt reports feeling tired- mostly physically. Pt hopes to transition to independent living soon- continues ot express frustration about how his demands not met as soon as he expects them- discussed realistic expectations and encouraged him to be in independent in areas that he is capable of such as cover ing himself with blanket. He denies SI/HI Taking medications as prescribed. no behavioral concerns. Review of Systems Review of Systems itchy feet and right foot discomfort Yes all other systems are reviewed and are negative, Unobtainable due to mental condition and Unobtainable due to mental status Mental Status Exam Mental Status Exam Narrative: Patient Appearance: Fatigued and Appropriate Patient Orientation: Person, Place and Situation Level of Consciousness: Sedated Patient Behavior: Guarded, Passive, Fatigued and Distractible Behavior Comments: Mood Description: Withdrawn and Anxious Affect Description: Constricted and Nervous Patient Cognition Impaired: Yes Ability to Follow Directions: Good Speech Pattern: Clear and Slurred Memory Description: Intact Diagnostics Vital Signs (24Hr): Vital Signs - 24 hr 03/19/23 07:30 03/19/23 18:00 Temperature 97.2 F 97 F Pulse Rate 70 66 Respiratory Rate 18 18 Blood Pressure 116/69 122/66 Pulse Oximetry 97 95 Oxygen Delivery Method Room Air Room Air BMI result Body Mass Index 30.2 Labs 03/04/23 07:45 03/04/23 07:45 Imaging Radiology Impressions: ITS Impressions Chest X-Ray 10/20/22 15:45 IMPRESSION: 1. Low lung volumes with bibasilar linear disc atelectasis versus scarring. 2. No airspace consolidation or effusion. Head CT 11/08/22 12:29 IMPRESSION: No acute intracranial hemorrhage or territorial infarction. Stable chronic postoperative changes with gliosis and encephalomalacia in the right frontal and right temporal lobes. Ex vacuo dilatation of the ventricles and diffuse parenchymal volume loss. Right-sided craniotomy changes. Chest X-Ray 11/12/22 10:32 IMPRESSION: Hypoexpanded lungs with bibasilar platelike atelectasis. Brain MRI 11/12/22 13:15 IMPRESSION: 1. No demonstrated acute intracranial abnormalities. 2. Chronic encephalomalacia of the right temporal, right frontal, and left occipital lobes. Small regions of chronic encephalomalacia in the parasagittal aspects of the bilateral parietal lobes. Moderate underlying microangiopathy and generalized cerebral volume loss. Chest X-Ray 11/14/22 15:52 IMPRESSION: Low lung volumes, bibasilar subsegmental atelectasis and slight elevation of the right hemidiaphragm similar to previous exam. Modified Barium Swallow 11/21/22 15:11 IMPRESSION: Laryngeal penetration on several occasions but no laryngeal aspiration. Mild retention of solid food in the valleculae which cleared with subsequent oral administration of water or thin barium. Correlate with speech therapy results. Orbit CT 01/23/23 14:05 IMPRESSION: - No definite significant intraorbital soft tissue findings to assessment is limited on a noncontrast CT of the orbits. No retrobulbar mass lesions and no cellulitic changes appreciated. - There are large fluid levels within the left maxillary sinus and within the right frontal sinus the can be correlated for clinical signs of acute sinusitis. - A peripherally ossified structure extending from the dorsal margin of the right nasolacrimal duct into the right maxillary sinus is stable when compared to examinations dated back to 08/24/2008 favoring a benign etiology. Cervical Spine CT 02/14/23 22:15 IMPRESSION: 1. No acute intracranial abnormality. Stable postsurgical changes with right frontotemporal encephalomalacia, global volume loss, and extraocular dilatation of the right lateral ventricle. 2. No cervical spine fracture or traumatic malalignment. Head CT 02/14/23 22:15 IMPRESSION: 1. No acute intracranial abnormality. Stable postsurgical changes with right frontotemporal encephalomalacia, global volume loss, and extraocular dilatation of the right lateral ventricle. 2. No cervical spine fracture or traumatic malalignment. Hip/Pelvis X-Ray 02/14/23 22:25 IMPRESSION: Moderate degenerative changes of the right hip with loss of superolateral joint space. Similar chronic posttraumatic deformity of the right femoral neck with chronic foreshortening. Status post left total hip arthroplasty in unchanged alignment however the lack of a crosstable lateral view limits assessment for dislocation. No acute fracture or dislocation appreciated on the available views. Foot X-Ray 02/22/23 13:50 IMPRESSION: * Postsurgical changes of arthrodesis first metatarsophalangeal joint. * There is developed large osteophyte from the head of the first metatarsal protruding laterally abutting the head of the second metatarsal. This might be the source of patient's pain. * Underlying degenerative osteoarthritis. Foot X-Ray 02/23/23 14:11 IMPRESSION: Mild degenerative changes MTP, PIP and DIP joints. No visible acute fracture or dislocation seen. Medications Medications Current Medications Acetaminophen (Acetaminophen 325 Mg Tablet) 975 mg PO Q6H PRN PRN Reason: Headache/Pain Mild Scale (1-3) Last Admin: 03/20/23 05:07 Dose: 975 mg Albuterol Sulfate (Albuterol Sulfate 90 Mcg 8 Gm Inhaler) 2 puff INHALE Q6H PRN PRN Reason: Wheezing Alprazolam (Alprazolam 0.25 Mg Tablet) 0.125 mg PO TID PRN PRN Reason: Anxiety Last Admin: 03/17/23 14:07 Dose: 0.125 mg Alprazolam (Alprazolam 0.5 Mg Tablet) 0.5 mg PO BEDTIME TAZ Last Admin: 03/19/23 21:12 Dose: 0.5 mg Amlodipine Besylate (Amlodipine Besylate 5 Mg Tablet) 5 mg PO DAILY TAZ; Protocol Last Admin: 03/19/23 08:31 Dose: 5 mg Artificial Tears (Artificial Tears 15 Ml Drops) 1 drop EYE-BOTH Q2H PRN PRN Reason: Dry Eyes Last Admin: 03/14/23 18:08 Dose: 1 drop Bisacodyl (Bisacodyl 10 Mg Supp.Rect) 10 mg NE DAILY PRN PRN Reason: Constipation Clotrimazole (Clotrimazole 1 % Cream 15 Gm Tube) 1 appl TOPICAL BID TAZ; Protocol Last Admin: 03/19/23 21:40 Dose: 1 appl Divalproex Sodium (Divalproex Sodium 250 Mg Tablet.Dr) 750 mg PO BEDTIME TAZ Last Admin: 03/19/23 21:12 Dose: 750 mg Guaifenesin/Dextromethorphan (Guaifenesin Dm 100/10/5 Ml 5 Ml Syrup) 5 ml PO Q4H PRN PRN Reason: cough Last Admin: 03/13/23 03:34 Dose: 5 ml Hydrocortisone (Hydrocortisone 1 % Cream 28.35 Gm Tube) 1 appl TOPICAL BID PRN; Protocol PRN Reason: itchy feet Last Admin: 03/09/23 20:43 Dose: 1 appl Hydroxyzine HCl (Hydroxyzine Hcl 25 Mg Tablet) 25 mg PO Q4H PRN PRN Reason: Anxiety Last Admin: 03/18/23 05:15 Dose: 25 mg Ibuprofen (Ibuprofen 600 Mg Tablet) 600 mg PO Q6H PRN PRN Reason: Pain, Moderate (Pain Scale 4-6 Last Admin: 03/12/23 17:29 Dose: 600 mg Latanoprost (Latanoprost 0.005 % Ophth No 2.5 Ml Drops) 1 drop EYE-BOTH BEDTIME TAZ Last Admin: 03/19/23 21:41 Dose: 1 drop Lidocaine (Lidocaine 5 % Ointment 35 Gm) 1 appl TOPICAL Q6H PRN; Protocol PRN Reason: pain r foot Last Admin: 03/19/23 21:50 Dose: 1 appl Magnesium Hydroxide (Milk Of Magnesia 30 Ml Oral.Susp) 30 ml PO BID PRN PRN Reason: constipation, stomach/GI upset Last Admin: 03/08/23 13:49 Dose: 30 ml Multi-Ingred Cream/Lotion/Oil/Oint (Mineral Oil/Petrolatum,White 106 Gm Tube) 1 appl TOPICAL BID PRN; Protocol PRN Reason: dry skin Nortriptyline HCl (Nortriptyline Hcl 25 Mg Capsule) 50 mg PO BEDTIME TAZ Last Admin: 03/19/23 21:12 Dose: 50 mg Nystatin (Nystatin Powder 15 Gm Bottle) 1 appl TOPICAL BID TAZ; Protocol Last Admin: 03/19/23 21:41 Dose: 1 appl Olanzapine (Olanzapine 2.5 Mg Tablet) 2.5 mg PO Q4H PRN PRN Reason: anxiety/restlessness Last Admin: 03/13/23 14:08 Dose: 2.5 mg Olanzapine (Olanzapine 2.5 Mg Tablet) 2.5 mg PO DAILY TAZ Last Admin: 03/19/23 08:32 Dose: 2.5 mg Olanzapine (Olanzapine 5 Mg Tablet) 5 mg PO BEDTIME TAZ Last Admin: 03/19/23 21:12 Dose: 5 mg Ondansetron HCl (Ondansetron Odt 4 Mg Tab.Rapdis) 4 mg TRANSLINGU Q6H PRN PRN Reason: Nausea and Vomiting Last Admin: 03/18/23 21:08 Dose: 4 mg Polyethylene Glycol (Polyethylene Glycol 3350 17 Gm Powd.Pack) 17 gm PO BID TAZ Last Admin: 03/19/23 21:17 Dose: Not Given Propranolol HCl (Propranolol Hcl 10 Mg Tablet) 10 mg PO TID [facility]; Protocol Last Admin: 03/19/23 21:13 Dose: 10 mg Senna/Docusate Sodium (Sennosides/Docusate Sodium Tablet) 2 tab PO BEDTIME [facility] Last Admin: 03/19/23 21:13 Dose: 2 tab Sodium Biphosphate/Sodium Phosphate (Sodium Phosphate,[place]-Dibasic 133 Ml Enema) 133 ml NE ONCE PRN PRN Reason: Constipation Sodium Chloride (Sodium Chloride 0.65 % Nasal 44 Ml Sprbtl) 1 spray NOSTRIL-B Q1H PRN PRN Reason: Nasal Congestion Last Admin: 02/26/23 21:14 Dose: 1 spray Tamsulosin HCl (Tamsulosin Hcl 0.4 Mg Capsule) 0.4 mg PO DAILY [facility] Last Admin: 03/19/23 08:31 Dose: 0.4 mg Trazodone HCl (Trazodone Hcl 100 Mg Tablet) 200 mg PO BEDTIME [facility] Last Admin: 03/19/23 21:13 Dose: 200 mg Venlafaxine HCl (Venlafaxine Hcl Er 75 Mg Cap.Er.24h) 75 mg PO DAILY [facility] Last Admin: 03/19/23 08:31 Dose: 75 mg Allergies Allergies Allergy/AdvReac Type Severity Reaction Status Date / Time fentanyl [FENTANYL] Allergy Intermediate unknown Verified 04/08/22 07:00 Assessment & Plan Assessment & Plan (1) Major depressive disorder, recurrent severe without psychotic features: Status: Acute Code(s): F33.2 - Major depressive disorder, recurrent severe without psychotic features (2) Cognitive and neurobehavioral dysfunction following brain injury: Status: Acute Code(s): G31.89 - Other specified degenerative diseases of nervous system; F09 - Unspecified mental disorder due to known physiological condition; S06.9X9S - Unspecified intracranial injury with loss of consciousness of unspecified duration, sequela (3) Personality disorder in adult: Status: Acute Code(s): F60.9 - Personality disorder, unspecified Plan ALPRAZOLAM 0.25 B.I.D. 0.5 BEDTIME OLANZAPINE ALSO 3 TIMES A DAY CONTINUE DEPAKOTE START PROPRANOLOL 10 T.I.D. THE PATIENT CONFRONTED REGARDING NEGATIVE TOXIC BEHAVIOR DIFFICULTY COPING AND NEGATIVE COMPLICATIONS TO HIS LIFE IF CONTINUE VERBALLY AGGRESSIVE AND TOXIC BEHAVIOR WITH OTHERS DEVALUATION ENCOURAGE REFLECTION STRESS MANAGEMENT COPING STRATEGIES 03/07 continue same treatment 03/08 continue same treatment 03/09 continue same treatment 03/10/23 Lower alprazolam .125 mg bid hold afternoon olanzapine secondary to slurring oversedation cont propranolol 03/11/23 Pt doing better less sedated struggles to maintain pos attitude 03/13 continue tx. 03/14: stable presentation, no change in mgmt. 03/15: appears sedated. no change in mgmt today. to F/U with attending tomorrow re meds for anxiety. 03/16 continue tx. 03/17 continue tx. 03/18 continue tx. 03/19 continue tx. Reason for continued inpatient stay Substantial Risk for: rapid decompensation Time Spent With Patient Time: Total time managing care of this patient today ____ minutes.
--- NOTE | 2023-03-20 06:58 | P.PNPSI_ITS ---
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 Pt reports he spoke with doctor treating brother who is family friend and he felt better knowing that his brother is in good hands and comfortable. He denies SI/HI. He hopes to transition to new home soon. Per nursing, same demanding behaviors, difficulty seeing other people's needs. Review of Systems Review of Systems itchy feet and right foot discomfort Yes all other systems are reviewed and are negative, Unobtainable due to mental condition and Unobtainable due to mental status Mental Status Exam Mental Status Exam Narrative: Patient Appearance: Fatigued and Appropriate Patient Orientation: Person, Place and Situation Level of Consciousness: Sedated Patient Behavior: Guarded, Passive, Fatigued and Distractible Behavior Comments: Mood Description: Withdrawn and Anxious Affect Description: Constricted and Nervous Patient Cognition Impaired: Yes Ability to Follow Directions: Good Speech Pattern: Clear and Slurred Memory Description: Intact Diagnostics Vital Signs (24Hr): Vital Signs - 24 hr 03/19/23 07:30 03/19/23 18:00 Temperature 97.2 F 97 F Pulse Rate 70 66 Respiratory Rate 18 18 Blood Pressure 116/69 122/66 Pulse Oximetry 97 95 Oxygen Delivery Method Room Air Room Air BMI result Body Mass Index 30.2 Labs 03/04/23 07:45 03/04/23 07:45 Imaging Radiology Impressions: ITS Impressions Chest X-Ray 10/20/22 15:45 IMPRESSION: 1. Low lung volumes with bibasilar linear disc atelectasis versus scarring. 2. No airspace consolidation or effusion. Head CT 11/08/22 12:29 IMPRESSION: No acute intracranial hemorrhage or territorial infarction. Stable chronic postoperative changes with gliosis and encephalomalacia in the right frontal and right temporal lobes. Ex vacuo dilatation of the ventricles and diffuse parenchymal volume loss. Right-sided craniotomy changes. Chest X-Ray 11/12/22 10:32 IMPRESSION: Hypoexpanded lungs with bibasilar platelike atelectasis. Brain MRI 11/12/22 13:15 IMPRESSION: 1. No demonstrated acute intracranial abnormalities. 2. Chronic encephalomalacia of the right temporal, right frontal, and left occipital lobes. Small regions of chronic encephalomalacia in the parasagittal aspects of the bilateral parietal lobes. Moderate underlying microangiopathy and generalized cerebral volume loss. Chest X-Ray 11/14/22 15:52 IMPRESSION: Low lung volumes, bibasilar subsegmental atelectasis and slight elevation of the right hemidiaphragm similar to previous exam. Modified Barium Swallow 11/21/22 15:11 IMPRESSION: Laryngeal penetration on several occasions but no laryngeal aspiration. Mild retention of solid food in the valleculae which cleared with subsequent oral administration of water or thin barium. Correlate with speech therapy results. Orbit CT 01/23/23 14:05 IMPRESSION: - No definite significant intraorbital soft tissue findings to assessment is limited on a noncontrast CT of the orbits. No retrobulbar mass lesions and no cellulitic changes appreciated. - There are large fluid levels within the left maxillary sinus and within the right frontal sinus the can be correlated for clinical signs of acute sinusitis. - A peripherally ossified structure extending from the dorsal margin of the right nasolacrimal duct into the right maxillary sinus is stable when compared to examinations dated back to 08/24/2008 favoring a benign etiology. Cervical Spine CT 02/14/23 22:15 IMPRESSION: 1. No acute intracranial abnormality. Stable postsurgical changes with right frontotemporal encephalomalacia, global volume loss, and extraocular dilatation of the right lateral ventricle. 2. No cervical spine fracture or traumatic malalignment. Head CT 02/14/23 22:15 IMPRESSION: 1. No acute intracranial abnormality. Stable postsurgical changes with right frontotemporal encephalomalacia, global volume loss, and extraocular dilatation of the right lateral ventricle. 2. No cervical spine fracture or traumatic malalignment. Hip/Pelvis X-Ray 02/14/23 22:25 IMPRESSION: Moderate degenerative changes of the right hip with loss of superolateral joint space. Similar chronic posttraumatic deformity of the right femoral neck with chronic foreshortening. Status post left total hip arthroplasty in unchanged alignment however the lack of a crosstable lateral view limits assessment for dislocation. No acute fracture or dislocation appreciated on the available views. Foot X-Ray 02/22/23 13:50 IMPRESSION: * Postsurgical changes of arthrodesis first metatarsophalangeal joint. * There is developed large osteophyte from the head of the first metatarsal protruding laterally abutting the head of the second metatarsal. This might be the source of patient's pain. * Underlying degenerative osteoarthritis. Foot X-Ray 02/23/23 14:11 IMPRESSION: Mild degenerative changes MTP, PIP and DIP joints. No visible acute fracture or dislocation seen. Medications Medications Current Medications Acetaminophen (Acetaminophen 325 Mg Tablet) 975 mg PO Q6H PRN PRN Reason: Headache/Pain Mild Scale (1-3) Last Admin: 03/20/23 05:07 Dose: 975 mg Albuterol Sulfate (Albuterol Sulfate 90 Mcg 8 Gm Inhaler) 2 puff INHALE Q6H PRN PRN Reason: Wheezing Alprazolam (Alprazolam 0.25 Mg Tablet) 0.125 mg PO TID PRN PRN Reason: Anxiety Last Admin: 03/17/23 14:07 Dose: 0.125 mg Alprazolam (Alprazolam 0.5 Mg Tablet) 0.5 mg PO BEDTIME TAZ Last Admin: 03/19/23 21:12 Dose: 0.5 mg Amlodipine Besylate (Amlodipine Besylate 5 Mg Tablet) 5 mg PO DAILY TAZ; Protocol Last Admin: 03/19/23 08:31 Dose: 5 mg Artificial Tears (Artificial Tears 15 Ml Drops) 1 drop EYE-BOTH Q2H PRN PRN Reason: Dry Eyes Last Admin: 03/14/23 18:08 Dose: 1 drop Bisacodyl (Bisacodyl 10 Mg Supp.Rect) 10 mg VT DAILY PRN PRN Reason: Constipation Clotrimazole (Clotrimazole 1 % Cream 15 Gm Tube) 1 appl TOPICAL BID TAZ; Protocol Last Admin: 03/19/23 21:40 Dose: 1 appl Divalproex Sodium (Divalproex Sodium 250 Mg Tablet.Dr) 750 mg PO BEDTIME TAZ Last Admin: 03/19/23 21:12 Dose: 750 mg Guaifenesin/Dextromethorphan (Guaifenesin Dm 100/10/5 Ml 5 Ml Syrup) 5 ml PO Q4H PRN PRN Reason: cough Last Admin: 03/13/23 03:34 Dose: 5 ml Hydrocortisone (Hydrocortisone 1 % Cream 28.35 Gm Tube) 1 appl TOPICAL BID PRN; Protocol PRN Reason: itchy feet Last Admin: 03/09/23 20:43 Dose: 1 appl Hydroxyzine HCl (Hydroxyzine Hcl 25 Mg Tablet) 25 mg PO Q4H PRN PRN Reason: Anxiety Last Admin: 03/18/23 05:15 Dose: 25 mg Ibuprofen (Ibuprofen 600 Mg Tablet) 600 mg PO Q6H PRN PRN Reason: Pain, Moderate (Pain Scale 4-6 Last Admin: 03/12/23 17:29 Dose: 600 mg Latanoprost (Latanoprost 0.005 % Ophth No 2.5 Ml Drops) 1 drop EYE-BOTH BEDTIME TAZ Last Admin: 03/19/23 21:41 Dose: 1 drop Lidocaine (Lidocaine 5 % Ointment 35 Gm) 1 appl TOPICAL Q6H PRN; Protocol PRN Reason: pain r foot Last Admin: 03/19/23 21:50 Dose: 1 appl Magnesium Hydroxide (Milk Of Magnesia 30 Ml Oral.Susp) 30 ml PO BID PRN PRN Reason: constipation, stomach/GI upset Last Admin: 03/08/23 13:49 Dose: 30 ml Multi-Ingred Cream/Lotion/Oil/Oint (Mineral Oil/Petrolatum,White 106 Gm Tube) 1 appl TOPICAL BID PRN; Protocol PRN Reason: dry skin Nortriptyline HCl (Nortriptyline Hcl 25 Mg Capsule) 50 mg PO BEDTIME TAZ Last Admin: 03/19/23 21:12 Dose: 50 mg Nystatin (Nystatin Powder 15 Gm Bottle) 1 appl TOPICAL BID TAZ; Protocol Last Admin: 03/19/23 21:41 Dose: 1 appl Olanzapine (Olanzapine 2.5 Mg Tablet) 2.5 mg PO Q4H PRN PRN Reason: anxiety/restlessness Last Admin: 03/13/23 14:08 Dose: 2.5 mg Olanzapine (Olanzapine 2.5 Mg Tablet) 2.5 mg PO DAILY TAZ Last Admin: 03/19/23 08:32 Dose: 2.5 mg Olanzapine (Olanzapine 5 Mg Tablet) 5 mg PO BEDTIME TAZ Last Admin: 03/19/23 21:12 Dose: 5 mg Ondansetron HCl (Ondansetron Odt 4 Mg Tab.Rapdis) 4 mg TRANSLINGU Q6H PRN PRN Reason: Nausea and Vomiting Last Admin: 03/18/23 21:08 Dose: 4 mg Polyethylene Glycol (Polyethylene Glycol 3350 17 Gm Powd.Pack) 17 gm PO BID TAZ Last Admin: 03/19/23 21:17 Dose: Not Given Propranolol HCl (Propranolol Hcl 10 Mg Tablet) 10 mg PO TID [facility]; Protocol Last Admin: 03/19/23 21:13 Dose: 10 mg Senna/Docusate Sodium (Sennosides/Docusate Sodium Tablet) 2 tab PO BEDTIME [facility] Last Admin: 03/19/23 21:13 Dose: 2 tab Sodium Biphosphate/Sodium Phosphate (Sodium Phosphate,[place]-Dibasic 133 Ml Enema) 133 ml VT ONCE PRN PRN Reason: Constipation Sodium Chloride (Sodium Chloride 0.65 % Nasal 44 Ml Sprbtl) 1 spray NOSTRIL-B Q1H PRN PRN Reason: Nasal Congestion Last Admin: 02/26/23 21:14 Dose: 1 spray Tamsulosin HCl (Tamsulosin Hcl 0.4 Mg Capsule) 0.4 mg PO DAILY [facility] Last Admin: 03/19/23 08:31 Dose: 0.4 mg Trazodone HCl (Trazodone Hcl 100 Mg Tablet) 200 mg PO BEDTIME [facility] Last Admin: 03/19/23 21:13 Dose: 200 mg Venlafaxine HCl (Venlafaxine Hcl Er 75 Mg Cap.Er.24h) 75 mg PO DAILY [facility] Last Admin: 03/19/23 08:31 Dose: 75 mg Allergies Allergies Allergy/AdvReac Type Severity Reaction Status Date / Time fentanyl [FENTANYL] Allergy Intermediate unknown Verified 04/08/22 07:00 Assessment & Plan Assessment & Plan (1) Major depressive disorder, recurrent severe without psychotic features: Status: Acute Code(s): F33.2 - Major depressive disorder, recurrent severe without psychotic features (2) Cognitive and neurobehavioral dysfunction following brain injury: Status: Acute Code(s): G31.89 - Other specified degenerative diseases of nervous system; F09 - Unspecified mental disorder due to known physiological condition; S06.9X9S - Un specified intracranial injury with loss of consciousness of unspecified duration, sequela (3) Personality disorder in adult: Status: Acute Code(s): F60.9 - Personality disorder, unspecified Plan ALPRAZOLAM 0.25 B.I.D. 0.5 BEDTIME OLANZAPINE ALSO 3 TIMES A DAY CONTINUE DEPAKOTE START PROPRANOLOL 10 T.I.D. THE PATIENT CONFRONTED REGARDING NEGATIVE TOXIC BEHAVIOR DIFFICULTY COPING AND NEGATIVE COMPLICATIONS TO HIS LIFE IF CONTINUE VERBALLY AGGRESSIVE AND TOXIC BEHAVIOR WITH OTHERS DEVALUATION ENCOURAGE REFLECTION STRESS MANAGEMENT COPING STRATEGIES 03/07 continue same treatment 03/08 continue same treatment 03/09 continue same treatment 03/10/23 Lower alprazolam .125 mg bid hold afternoon olanzapine secondary to slurring oversedation cont propranolol 03/11/23 Pt doing better less sedated struggles to maintain pos attitude 03/13 continue tx. 03/14: stable presentation, no change in mgmt. 03/15: appears sedated. no change in mgmt today. to F/U with attending tomorro w re meds for anxiety. 03/16 continue tx. 03/17 continue tx. 03/18 continue tx. 03/19 continue tx. 03/20 continue tx. Reason for continued inpatient stay Substantial Risk for: inability to function Time Spent With Patient Time: Total time managing care of this patient today ____ minutes.
[2023-03-20] MEDS: Ondansetron ODT 4 MG TAB.RAPDIS TRANSLINGU (09:13)
[2023-03-20] MEDS: Propranolol HCL 10 MG TABLET PO ×3 (11:48→21:25)
[2023-03-20] MEDS: OLANZapine 2.5 MG TABLET PO (11:48)
[2023-03-20] MEDS: amLODIPine Besylate 5 MG TABLET PO (11:48)
[2023-03-20] MEDS: Tamsulosin HCL 0.4 MG CAPSULE PO (11:48)
[2023-03-20] MEDS: Venlafaxine HCl ER 75 MG CAP.ER.24H PO (11:48)
[2023-03-20] MEDS: polyethylene glycoL 3350 17 GM POWD.PACK PO (11:49)
[2023-03-20] MEDS: ALPRAZolam 0.25 MG TABLET 0.125 MG PO (11:55)
[2023-03-20 14:53] VITALS: BP 117/67; PULSE 67; RESP 18; O2SAT 95
[2023-03-20] MEDS: hydrOXYzine HCL 25 MG TABLET PO (15:59)
[2023-03-20] MEDS: Lidocaine 5 % Ointment 35 GM 1 APPL TOPICAL (16:26)
[2023-03-20 18:00] VITALS: BP 109/74; PULSE 66; RESP 16; TEMP 37; O2SAT 95
[2023-03-20] MEDS: Nystatin Powder 15 GM BOTTLE 1 APPL TOPICAL (21:25)
[2023-03-20] MEDS: Clotrimazole 1 % Cream 15 GM TUBE 1 APPL TOPICAL (21:25)
[2023-03-20] MEDS: traZODone HCL 100 MG TABLET 200 MG PO (21:25)
[2023-03-20] MEDS: Divalproex Sodium 250 MG TABLET.DR 750 MG PO (21:25)
[2023-03-20] MEDS: Latanoprost 0.005 % Ophth Sol 2.5 ML DROPS 1 DROP EYE-BOTH (21:25)
[2023-03-20] MEDS: Sennosides/Docusate Sodium TABLET 2 TAB PO (21:25)
[2023-03-20] MEDS: OLANZapine 5 MG TABLET PO (21:26)
[2023-03-20] MEDS: Nortriptyline HCl 25 MG CAPSULE 50 MG PO (21:26)
[2023-03-20] MEDS: ALPRAZolam 0.5 MG TABLET PO (21:26)
[2023-03-21] MEDS: Acetaminophen 325 MG TABLET 975 MG PO ×2 (02:56→16:10)
[2023-03-21] MEDS: hydrOXYzine HCL 25 MG TABLET PO (02:57)
[2023-03-21 07:55] VITALS: BP 141/71; PULSE 76
[2023-03-21] MEDS: Propranolol HCL 10 MG TABLET PO ×3 (07:58→20:33)
[2023-03-21] MEDS: amLODIPine Besylate 5 MG TABLET PO (07:58)
[2023-03-21] MEDS: Tamsulosin HCL 0.4 MG CAPSULE PO (07:58)
[2023-03-21] MEDS: OLANZapine 2.5 MG TABLET PO (07:58)
[2023-03-21] MEDS: Venlafaxine HCl ER 75 MG CAP.ER.24H PO (07:58)
[2023-03-21] MEDS: polyethylene glycoL 3350 17 GM POWD.PACK PO ×2 (08:03→20:34)
[2023-03-21 14:02] VITALS: BP 121/75; PULSE 78
[2023-03-21] MEDS: Milk of Magnesia 30 ML ORAL.SUSP PO (16:10)
[2023-03-21 18:06] VITALS: BP 106/69; PULSE 114
--- NOTE | 2023-03-21 18:15 | HO.PSYCHPN ---
Subjective Subjective Date of Service: 03/21/23 Reason For Visit: Depression hopelessness irritability Medical Problems Affecting Mental Status: No Interim History: No management issues. Endorses anxiety, but depression better. Remains hopeful ref dispo and [facility] being modified so he can return there. Feeling cared for and supported. Sleep, energy, appetite ok Medication Compliance: Yes Side effects from medications: No Attending Groups: Intermittent Review of Systems Acute medical concerns: No Review of Systems Review of Systems unremarkable Mental Status Exam Mental Status Exam Narrative: Patient Appearance: Fatigued and Appropriate Patient Orientation: Person, Place and Situation Level of Consciousness: Sedated Patient Behavior: Guarded, Passive, Fatigued and Distractible Behavior Comments: Mood Description: Withdrawn and Anxious Affect Description: Constricted and Nervous Patient Cognition Impaired: Yes Ability to Follow Directions: Good Speech Pattern: Clear and Slurred Memory Description: Intact Diagnostics Vital Signs (24Hr): Vital Signs - 24 hr 03/21/23 07:55 03/21/23 14:02 03/21/23 18:06 Pulse Rate 76 78 114 H Blood Pressure 141/71 H 121/75 106/69 BMI result Body Mass Index 30.2 Labs 03/04/23 07:45 03/04/23 07:45 Imaging Radiology Impressions: ITS Impressions Chest X-Ray 10/20/22 15:45 IMPRESSION: 1. Low lung volumes with bibasilar linear disc atelectasis versus scarring. 2. No airspace consolidation or effusion. Head CT 11/08/22 12:29 IMPRESSION: No acute intracranial hemorrhage or territorial infarction. Stable chronic postoperative changes with gliosis and encephalomalacia in the right frontal and right temporal lobes. Ex vacuo dilatation of the ventricles and diffuse parenchymal volume loss. Right-sided craniotomy changes. Chest X-Ray 11/12/22 10:32 IMPRESSION: Hypoexpanded lungs with bibasilar platelike atelectasis. Brain MRI 11/12/22 13:15 IMPRESSION: 1. No demonstrated acute intracranial abnormalities. 2. Chronic encephalomalacia of the right temporal, right frontal, and left occipital lobes. Small regions of chronic encephalomalacia in the parasagittal aspects of the bilateral parietal lobes. Moderate underlying microangiopathy and generalized cerebral volume loss. Chest X-Ray 11/14/22 15:52 IMPRESSION: Low lung volumes, bibasilar subsegmental atelectasis and slight elevation of the right hemidiaphragm similar to previous exam. Modified Barium Swallow 11/21/22 15:11 IMPRESSION: Laryngeal penetration on several occasions but no laryngeal aspiration. Mild retention of solid food in the valleculae which cleared with subsequent oral administration of water or thin barium. Correlate with speech therapy results. Orbit CT 01/23/23 14:05 IMPRESSION: - No definite significant intraorbital soft tissue findings to assessment is limited on a noncontrast CT of the orbits. No retrobulbar mass lesions and no cellulitic changes appreciated. - There are large fluid levels within the left maxillary sinus and within the right frontal sinus the can be correlated for clinical signs of acute sinusitis. - A peripherally ossified structure extending from the dorsal margin of the right nasolacrimal duct into the right maxillary sinus is stable when compared to examinations dated back to 08/24/2008 favoring a benign etiology. Cervical Spine CT 02/14/23 22:15 IMPRESSION: 1. No acute intracranial abnormality. Stable postsurgical changes with right frontotemporal encephalomalacia, global volume loss, and extraocular dilatation of the right lateral ventricle. 2. No cervical spine fracture or traumatic malalignment. Head CT 02/14/23 22:15 IMPRESSION: 1. No acute intracranial abnormality. Stable postsurgical changes with right frontotemporal encephalomalacia, global volume loss, and extraocular dilatation of the right lateral ventricle. 2. No cervical spine fracture or traumatic malalignment. Hip/Pelvis X-Ray 02/14/23 22:25 IMPRESSION: Moderate degenerative changes of the right hip with loss of superolateral joint space. Similar chronic posttraumatic deformity of the right femoral neck with chronic foreshortening. Status post left total hip arthroplasty in unchanged alignment however the lack of a crosstable lateral view limits assessment for dislocation. No acute fracture or dislocation appreciated on the available views. Foot X-Ray 02/22/23 13:50 IMPRESSION: * Postsurgical changes of arthrodesis first metatarsophalangeal joint. * There is developed large osteophyte from the head of the first metatarsal protruding laterally abutting the head of the second metatarsal. This might be the source of patient's pain. * Underlying degenerative osteoarthritis. Foot X-Ray 02/23/23 14:11 IMPRESSION: Mild degenerative changes MTP, PIP and DIP joints. No visible acute fracture or dislocation seen. Medications Medications Current Medications Acetaminophen (Acetaminophen 325 Mg Tablet) 975 mg PO Q6H PRN PRN Reason: Headache/Pain Mild Scale (1-3) Last Admin: 03/21/23 16:10 Dose: 975 mg Albuterol Sulfate (Albuterol Sulfate 90 Mcg 8 Gm Inhaler) 2 puff INHALE Q6H PRN PRN Reason: Wheezing Alprazolam (Alprazolam 0.5 Mg Tablet) 0.5 mg PO BEDTIME TAZ Last Admin: 03/20/23 21:26 Dose: 0.5 mg Amlodipine Besylate (Amlodipine Besylate 5 Mg Tablet) 5 mg PO DAILY TAZ; Protocol Last Admin: 03/21/23 07:58 Dose: 5 mg Artificial Tears (Artificial Tears 15 Ml Drops) 1 drop EYE-BOTH Q2H PRN PRN Reason: Dry Eyes Last Admin: 03/14/23 18:08 Dose: 1 drop Bisacodyl (Bisacodyl 10 Mg Supp.Rect) 10 mg TN DAILY PRN PRN Reason: Constipation Clotrimazole (Clotrimazole 1 % Cream 15 Gm Tube) 1 appl TOPICAL BID TAZ; Protocol Last Admin: 03/21/23 07:59 Dose: Not Given Divalproex Sodium (Divalproex Sodium 250 Mg Tablet.Dr) 750 mg PO BEDTIME TAZ Last Admin: 03/20/23 21:25 Dose: 750 mg Guaifenesin/Dextromethorphan (Guaifenesin Dm 100/10/5 Ml 5 Ml Syrup) 5 ml PO Q4H PRN PRN Reason: cough Last Admin: 03/13/23 03:34 Dose: 5 ml Hydrocortisone (Hydrocortisone 1 % Cream 28.35 Gm Tube) 1 appl TOPICAL BID PRN; Protocol PRN Reason: itchy feet Last Admin: 03/09/23 20:43 Dose: 1 appl Hydroxyzine HCl (Hydroxyzine Hcl 25 Mg Tablet) 25 mg PO Q4H PRN PRN Reason: Anxiety Last Admin: 03/21/23 02:57 Dose: 25 mg Ibuprofen (Ibuprofen 600 Mg Tablet) 600 mg PO Q6H PRN PRN Reason: Pain, Moderate (Pain Scale 4-6 Last Admin: 03/12/23 17:29 Dose: 600 mg Latanoprost (Latanoprost 0.005 % Ophth No 2.5 Ml Drops) 1 drop EYE-BOTH BEDTIME TAZ Last Admin: 03/20/23 21:25 Dose: 1 drop Lidocaine (Lidocaine 5 % Ointment 35 Gm) 1 appl TOPICAL Q6H PRN; Protocol PRN Reason: pain r foot Last Admin: 03/20/23 16:26 Dose: 1 appl Magnesium Hydroxide (Milk Of Magnesia 30 Ml Oral.Susp) 30 ml PO BID PRN PRN Reason: constipation, stomach/GI upset Last Admin: 03/21/23 16:10 Dose: 30 ml Nortriptyline HCl (Nortriptyline Hcl 25 Mg Capsule) 50 mg PO BEDTIME TAZ Last Admin: 03/20/23 21:26 Dose: 50 mg Nystatin (Nystatin Powder 15 Gm Bottle) 1 appl TOPICAL BID TAZ; Protocol Last Admin: 03/21/23 07:58 Dose: Not Given Olanzapine (Olanzapine 2.5 Mg Tablet) 2.5 mg PO Q4H PRN PRN Reason: anxiety/restlessness Last Admin: 03/13/23 14:08 Dose: 2.5 mg Olanzapine (Olanzapine 2.5 Mg Tablet) 2.5 mg PO DAILY [facility] Last Admin: 03/21/23 07:58 Dose: 2.5 mg Olanzapine (Olanzapine 5 Mg Tablet) 5 mg PO BEDTIME TAZ Last Admin: 03/20/23 21:26 Dose: 5 mg Ondansetron HCl (Ondansetron Odt 4 Mg Tab.Rapdis) 4 mg TRANSLINGU Q6H PRN PRN Reason: Nausea and Vomiting Last Admin: 03/20/23 09:13 Dose: 4 mg Polyethylene Glycol (Polyethylene Glycol 3350 17 Gm Powd.Pack) 17 gm PO BID TAZ Last Admin: 03/21/23 08:03 Dose: 17 gm Propranolol HCl (Propranolol Hcl 10 Mg Tablet) 10 mg PO TID TAZ; Protocol Last Admin: 03/21/23 14:03 Dose: 10 mg Senna/Docusate Sodium (Sennosides/Docusate Sodium Tablet) 2 tab PO BEDTIME TAZ Last Admin: 03/20/23 21:25 Dose: 2 tab Sodium Biphosphate/Sodium Phosphate (Sodium Phosphate,[place]-Dibasic 133 Ml Enema) 133 ml TN ONCE PRN PRN Reason: Constipation Sodium Chloride (Sodium Chloride 0.65 % Nasal 44 Ml Sprbtl) 1 spray NOSTRIL-B Q1H PRN PRN Reason: Nasal Congestion Last Admin: 02/26/23 21:14 Dose: 1 spray Tamsulosin HCl (Tamsulosin Hcl 0.4 Mg Capsule) 0.4 mg PO DAILY [facility] Last Admin: 03/21/23 07:58 Dose: 0.4 mg Trazodone HCl (Trazodone Hcl 100 Mg Tablet) 200 mg PO BEDTIME [facility] Last Admin: 03/20/23 21:25 Dose: 200 mg Venlafaxine HCl (Venlafaxine Hcl Er 75 Mg Cap.Er.24h) 75 mg PO DAILY [facility] Last Admin: 03/21/23 07:58 Dose: 75 mg Allergies Allergies Allergy/AdvReac Type Severity Reaction Status Date / Time fentanyl [FENTANYL] Allergy Intermediate unknown Verified 04/08/22 07:00 Assessment & Plan Assessment & Plan (1) Major depressive disorder, recurrent severe without psychotic features: Status: Acute Code(s): F33.2 - Major depressive disorder, recurrent severe without psychotic features (2) Cognitive and neurobehavioral dysfunction following brain injury: Status: Acute Code(s): G31.89 - Other specified degenerative diseases of nervous system; F09 - Unspecified mental disorder due to known physiological condition; S06.9X9S - Unspecified intracranial injury with loss of consciousness of unspecified duration, sequela (3) Personality disorder in adult: Status: Acute Code(s): F60.9 - Personality disorder, unspecified Plan ALPRAZOLAM 0.25 B.I.D. 0.5 BEDTIME OLANZAPINE ALSO 3 TIMES A DAY CONTINUE DEPAKOTE START PROPRANOLOL 10 T.I.D. THE PATIENT CONFRONTED REGARDING NEGATIVE TOXIC BEHAVIOR DIFFICULTY COPING AND NEGATIVE COMPLICATIONS TO HIS LIFE IF CONTINUE VERBALLY AGGRESSIVE AND TOXIC BEHAVIOR WITH OTHERS DEVALUATION ENCOURAGE REFLECTION STRESS MANAGEMENT COPING STRATEGIES 03/07 continue same treatment 03/08 continue same treatment 03/09 continue same treatment 03/10/23 Lower alprazolam .125 mg bid hold afternoon olanzapine secondary to slurring oversedation cont propranolol 03/11/23 Pt doing better less sedated struggles to maintain pos attitude 03/13 continue tx. 03/14: stable presentation, no change in mgmt. 03/15: appears sedated. no change in mgmt today. to F/U with attending tomorrow re meds for anxiety. 03/16 continue tx. 03/17 continue tx. 5/3 continue tx. 5/ continue tx. 5/6 continue tx. Reason for continued inpatient stay Substantial Risk for: rapid decompensation Time Spent With Patient Time: Total time managing care of this patient today ____ minutes.
[2023-03-21] MEDS: ALPRAZolam 0.5 MG TABLET PO (20:33)
[2023-03-21] MEDS: Divalproex Sodium 250 MG TABLET.DR 750 MG PO (20:33)
[2023-03-21] MEDS: Nortriptyline HCl 25 MG CAPSULE 50 MG PO (20:33)
[2023-03-21] MEDS: OLANZapine 5 MG TABLET PO (20:33)
[2023-03-21] MEDS: Sennosides/Docusate Sodium TABLET 2 TAB PO (20:33)
[2023-03-21] MEDS: traZODone HCL 100 MG TABLET 200 MG PO (20:33)
[2023-03-21] MEDS: Latanoprost 0.005 % Ophth Sol 2.5 ML DROPS 1 DROP EYE-BOTH (21:44)
[2023-03-21] MEDS: Nystatin Powder 15 GM BOTTLE 1 APPL TOPICAL (21:44)
[2023-03-21] MEDS: Clotrimazole 1 % Cream 15 GM TUBE 1 APPL TOPICAL (21:44)
[2023-03-22] MEDS: Acetaminophen 325 MG TABLET 975 MG PO ×3 (05:04→16:02)
[2023-03-22 06:00] VITALS: BP 131/80; PULSE 69; RESP 18; TEMP 36.3; O2SAT 95
[2023-03-22] MEDS: amLODIPine Besylate 5 MG TABLET PO (10:12)
[2023-03-22] MEDS: OLANZapine 2.5 MG TABLET PO ×2 (10:12→16:03)
[2023-03-22] MEDS: Venlafaxine HCl ER 75 MG CAP.ER.24H PO (10:12)
[2023-03-22] MEDS: Tamsulosin HCL 0.4 MG CAPSULE PO (10:12)
[2023-03-22] MEDS: Propranolol HCL 10 MG TABLET PO ×3 (10:13→21:47)
[2023-03-22] MEDS: polyethylene glycoL 3350 17 GM POWD.PACK PO (10:13)
[2023-03-22] MEDS: Artificial Tears 15 ML DROPS 1 DROP EYE-BOTH (10:59)
--- NOTE | 2023-03-22 12:17 | P.PNPSI_ITS ---
Subjective Subjective Date of Service: 03/22/23 Reason For Visit: Depression hopelessness irritability Medical Problems Affecting Mental Status: No Interim History: No management issues. Frustration ref dispo challenges. Endorses getting angry, but makes choice to distract self and looking forward to mass today, groups and meet the press on TV. Feeling cared for and supported. Sleep, energy, appetite ok Medication Compliance: Yes Side effects from medications: No Attending Groups: Yes Review of Systems Acute medical concerns: No Review of Systems Review of Systems unremarkable Mental Status Exam Mental Status Exam Narrative: Patient Appearance: Fatigued and Appropriate Patient Orientation: Person, Place and Situation Level of Consciousness: Sedated Patient Behavior: Guarded, Passive, Fatigued and Distractible Behavior Comments: Mood Description: Withdrawn and Anxious Affect Description: Constricted and Nervous Patient Cognition Impaired: Yes Ability to Follow Directions: Good Speech Pattern: Clear and Slurred Memory Description: Intact Diagnostics Vital Signs (24Hr): Vital Signs - 24 hr 03/21/23 14:02 03/21/23 18:06 03/22/23 06:00 Temperature 97.3 F Pulse Rate 78 114 H 69 Respiratory Rate 18 Blood Pressure 121/75 106/69 131/80 Pulse Oximetry 95 Oxygen Delivery Method Room Air BMI result Body Mass Index 30.2 Labs 03/04/23 07:45 03/04/23 07:45 Imaging Radiology Impressions: ITS Impressions Chest X-Ray 10/20/22 15:45 IMPRESSION: 1. Low lung volumes with bibasilar linear disc atelectasis versus scarring. 2. No airspace consolidation or effusion. Head CT 11/08/22 12:29 IMPRESSION: No acute intracranial hemorrhage or territorial infarction. Stable chronic postoperative changes with gliosis and encephalomalacia in the right frontal and right temporal lobes. Ex vacuo dilatation of the ventricles and diffuse parenchymal volume loss. Right-sided craniotomy changes. Chest X-Ray 11/12/22 10:32 IMPRESSION: Hypoexpanded lungs with bibasilar platelike atelectasis. Brain MRI 11/12/22 13:15 IMPRESSION: 1. No demonstrated acute intracranial abnormalities. 2. Chronic encephalomalacia of the right temporal, right frontal, and left occipital lobes. Small regions of chronic encephalomalacia in the parasagittal aspects of the bilateral parietal lobes. Moderate underlying microangiopathy and generalized cerebral volume loss. Chest X-Ray 11/14/22 15:52 IMPRESSION: Low lung volumes, bibasilar subsegmental atelectasis and slight elevation of the right hemidiaphragm similar to previous exam. Modified Barium Swallow 11/21/22 15:11 IMPRESSION: Laryngeal penetration on several occasions but no laryngeal aspiration. Mild retention of solid food in the valleculae which cleared with subsequent oral administration of water or thin barium. Correlate with speech therapy results. Orbit CT 01/23/23 14:05 IMPRESSION: - No definite significant intraorbital soft tissue findings to assessment is limited on a noncontrast CT of the orbits. No retrobulbar mass lesions and no cellulitic changes appreciated. - There are large fluid levels within the left maxillary sinus and within the right frontal sinus the can be correlated for clinical signs of acute sinusitis. - A peripherally ossified structure extending from the dorsal margin of the right nasolacrimal duct into the right maxillary sinus is stable when compared to examinations dated back to 08/24/2008 favoring a benign etiology. Cervical Spine CT 02/14/23 22:15 IMPRESSION: 1. No acute intracranial abnormality. Stable postsurgical changes with right frontotemporal encephalomalacia, global volume loss, and extraocular dilatation of the right lateral ventricle. 2. No cervical spine fracture or traumatic malalignment. Head CT 02/14/23 22:15 IMPRESSION: 1. No acute intracranial abnormality. Stable postsurgical changes with right frontotemporal encephalomalacia, global volume loss, and extraocular dilatation of the right lateral ventricle. 2. No cervical spine fracture or traumatic malalignment. Hip/Pelvis X-Ray 02/14/23 22:25 IMPRESSION: Moderate degenerative changes of the right hip with loss of superolateral joint space. Similar chronic posttraumatic deformity of the right femoral neck with chronic foreshortening. Status post left total hip arthroplasty in unchanged alignment however the lack of a crosstable lateral view limits assessment for dislocation. No acute fracture or dislocation appreciated on the available views. Foot X-Ray 02/22/23 13:50 IMPRESSION: * Postsurgical changes of arthrodesis first metatarsophalangeal joint. * There is developed large osteophyte from the head of the first metatarsal protruding laterally abutting the head of the second metatarsal. This might be the source of patient's pain. * Underlying degenerative osteoarthritis. Foot X-Ray 02/23/23 14:11 IMPRESSION: Mild degenerative changes MTP, PIP and DIP joints. No visible acute fracture or dislocation seen. Medications Medications Current Medications Acetaminophen (Acetaminophen 325 Mg Tablet) 975 mg PO Q6H PRN PRN Reason: Headache/Pain Mild Scale (1-3) Last Admin: 03/22/23 10:58 Dose: 975 mg Albuterol Sulfate (Albuterol Sulfate 90 Mcg 8 Gm Inhaler) 2 puff INHALE Q6H PRN PRN Reason: Wheezing Alprazolam (Alprazolam 0.5 Mg Tablet) 0.5 mg PO BEDTIME TAZ Last Admin: 03/21/23 20:33 Dose: 0.5 mg Amlodipine Besylate (Amlodipine Besylate 5 Mg Tablet) 5 mg PO DAILY TAZ; Protocol Last Admin: 03/22/23 10:12 Dose: 5 mg Artificial Tears (Artificial Tears 15 Ml Drops) 1 drop EYE-BOTH Q2H PRN PRN Reason: Dry Eyes Last Admin: 03/22/23 10:59 Dose: 1 drop Bisacodyl (Bisacodyl 10 Mg Supp.Rect) 10 mg [place] DAILY PRN PRN Reason: Constipation Clotrimazole (Clotrimazole 1 % Cream 15 Gm Tube) 1 appl TOPICAL BID TAZ; Protocol Last Admin: 03/22/23 10:13 Dose: Not Given Divalproex Sodium (Divalproex Sodium 250 Mg Tablet.Dr) 750 mg PO BEDTIME TAZ Last Admin: 03/21/23 20:33 Dose: 750 mg Guaifenesin/Dextromethorphan (Guaifenesin Dm 100/10/5 Ml 5 Ml Syrup) 5 ml PO Q4H PRN PRN Reason: cough Last Admin: 03/13/23 03:34 Dose: 5 ml Hydrocortisone (Hydrocortisone 1 % Cream 28.35 Gm Tube) 1 appl TOPICAL BID PRN; Protocol PRN Reason: itchy feet Last Admin: 03/09/23 20:43 Dose: 1 appl Hydroxyzine HCl (Hydroxyzine Hcl 25 Mg Tablet) 25 mg PO Q4H PRN PRN Reason: Anxiety Last Admin: 03/21/23 02:57 Dose: 25 mg Ibuprofen (Ibuprofen 600 Mg Tablet) 600 mg PO Q6H PRN PRN Reason: Pain, Moderate (Pain Scale 4-6 Last Admin: 03/12/23 17:29 Dose: 600 mg Latanoprost (Latanoprost 0.005 % Ophth No 2.5 Ml Drops) 1 drop EYE-BOTH BEDTIME TAZ Last Admin: 03/21/23 21:44 Dose: 1 drop Lidocaine (Lidocaine 5 % Ointment 35 Gm) 1 appl TOPICAL Q6H PRN; Protocol PRN Reason: pain r foot Last Admin: 03/20/23 16:26 Dose: 1 appl Magnesium Hydroxide (Milk Of Magnesia 30 Ml Oral.Susp) 30 ml PO BID PRN PRN Reason: constipation, stomach/GI upset Last Admin: 03/21/23 16:10 Dose: 30 ml Nortriptyline HCl (Nortriptyline Hcl 25 Mg Capsule) 50 mg PO BEDTIME TAZ Last Admin: 03/21/23 20:33 Dose: 50 mg Nystatin (Nystatin Powder 15 Gm Bottle) 1 appl TOPICAL BID TAZ; Protocol Last Admin: 03/22/23 10:13 Dose: Not Given Olanzapine (Olanzapine 2.5 Mg Tablet) 2.5 mg PO Q4H PRN PRN Reason: anxiety/restlessness Last Admin: 03/13/23 14:08 Dose: 2.5 mg Olanzapine (Olanzapine 2.5 Mg Tablet) 2.5 mg PO DAILY TAZ Last Admin: 03/22/23 10:12 Dose: 2.5 mg Olanzapine (Olanzapine 5 Mg Tablet) 5 mg PO BEDTIME TAZ Last Admin: 03/21/23 20:33 Dose: 5 mg Ondansetron HCl (Ondansetron Odt 4 Mg Tab.Rapdis) 4 mg TRANSLINGU Q6H PRN PRN Reason: Nausea and Vomiting Last Admin: 03/20/23 09:13 Dose: 4 mg Polyethylene Glycol (Polyethylene Glycol 3350 17 Gm Powd.Pack) 17 gm PO BID TAZ Last Admin: 03/22/23 10:13 Dose: 17 gm Propranolol HCl (Propranolol Hcl 10 Mg Tablet) 10 mg PO TID TAZ; Protocol Last Admin: 03/22/23 10:13 Dose: 10 mg Senna/Docusate Sodium (Sennosides/Docusate Sodium Tablet) 2 tab PO BEDTIME TAZ Last Admin: 03/21/23 20:33 Dose: 2 tab Sodium Biphosphate/Sodium Phosphate (Sodium Phosphate,[place]-Dibasic 133 Ml Enema) 133 ml [place] ONCE PRN PRN Reason: Constipation Sodium Chloride (Sodium Chloride 0.65 % Nasal 44 Ml Sprbtl) 1 spray NOSTRIL-B Q1H PRN PRN Reason: Nasal Congestion Last Admin: 02/26/23 21:14 Dose: 1 spray Tamsulosin HCl (Tamsulosin Hcl 0.4 Mg Capsule) 0.4 mg PO DAILY [facility] Last Admin: 03/22/23 10:12 Dose: 0.4 mg Trazodone HCl (Trazodone Hcl 100 Mg Tablet) 200 mg PO BEDTIME [facility] Last Admin: 03/21/23 20:33 Dose: 200 mg Venlafaxine HCl (Venlafaxine Hcl Er 75 Mg Cap.Er.24h) 75 mg PO DAILY [facility] Last Admin: 03/22/23 10:12 Dose: 75 mg Allergies Allergies Allergy/AdvReac Type Severity Reaction Status Date / Time fentanyl [FENTANYL] Allergy Intermediate unknown Verified 04/08/22 07:00 Assessment & Plan Assessment & Plan (1) Major depressive disorder, recurrent severe without psychotic features: Status: Acute Code(s): F33.2 - Major depressive disorder, recurrent severe without psychotic features (2) Cognitive and neurobehavioral dysfunction following brain injury: Status: Acute Code(s): G31.89 - Other specified degenerative diseases of nervous system; F09 - Unspecified mental disorder due to known physiological condition; S06.9X9S - Unspecified intracranial injury with loss of consciousness of unspecified duration, sequela (3) Personality disorder in adult: Status: Acute Code(s): F60.9 - Personality disorder, unspecified Plan ALPRAZOLAM 0.25 B.I.D. 0.5 BEDTIME OLANZAPINE ALSO 3 TIMES A DAY CONTINUE DEPAKOTE START PROPRANOLOL 10 T.I.D. THE PATIENT CONFRONTED REGARDING NEGATIVE TOXIC BEHAVIOR DIFFICULTY COPING AND NEGATIVE COMPLICATIONS TO HIS LIFE IF CONTINUE VERBALLY AGGRESSIVE AND TOXIC BEHAVIOR WITH OTHERS DEVALUATION ENCOURAGE REFLECTION STRESS MANAGEMENT COPING STRATEGIES 03/07 continue same treatment 03/08 continue same treatment 03/09 continue same treatment 03/10/23 Lower alprazolam .125 mg bid hold afternoon olanzapine secondary to slurring oversedation cont propranolol 03/11/23 Pt doing better less sedated struggles to maintain pos attitude 03/13 continue tx. 03/14: stable presentation, no change in mgmt. 03/15: appears sedated. no change in mgmt today. to F/U with attending tomorrow re meds for anxiety. 03/16 continue tx. 03/17 continue tx. 03/18 continue tx. 03/19 continue tx. 03/22 continue tx. Reason for continued inpatient stay Substantial Risk for: rapid decompensation Time Spent With Patient Time: Total time managing care of this patient today ____ minutes.
[2023-03-22 18:00] VITALS: BP 131/63; PULSE 64; RESP 18; TEMP 36.6; O2SAT 95
[2023-03-22] MEDS: traZODone HCL 100 MG TABLET 200 MG PO (21:46)
[2023-03-22] MEDS: Divalproex Sodium 250 MG TABLET.DR 750 MG PO (21:46)
[2023-03-22] MEDS: Sennosides/Docusate Sodium TABLET 2 TAB PO (21:46)
[2023-03-22] MEDS: Nystatin Powder 15 GM BOTTLE 1 APPL TOPICAL (21:47)
[2023-03-22] MEDS: Nortriptyline HCl 25 MG CAPSULE 50 MG PO (21:47)
[2023-03-22] MEDS: Clotrimazole 1 % Cream 15 GM TUBE 1 APPL TOPICAL (21:48)
[2023-03-22] MEDS: Lidocaine 5 % Ointment 35 GM 1 APPL TOPICAL (22:04)
[2023-03-22] MEDS: ALPRAZolam 0.5 MG TABLET PO (22:21)
[2023-03-22] MEDS: Latanoprost 0.005 % Ophth Sol 2.5 ML DROPS 1 DROP EYE-BOTH (22:22)
[2023-03-22] MEDS: OLANZapine 5 MG TABLET PO (22:22)
[2023-03-23] MEDS: hydrOXYzine HCL 25 MG TABLET PO ×2 (00:31→23:38)
[2023-03-23 06:00] VITALS: BP 139/83; PULSE 79; RESP 18; TEMP 36.7; O2SAT 96
[2023-03-23] MEDS: Venlafaxine HCl ER 75 MG CAP.ER.24H PO (09:40)
[2023-03-23] MEDS: Propranolol HCL 10 MG TABLET PO ×3 (09:40→20:55)
[2023-03-23] MEDS: amLODIPine Besylate 5 MG TABLET PO (09:41)
[2023-03-23] MEDS: OLANZapine 2.5 MG TABLET PO (09:41)
[2023-03-23] MEDS: Tamsulosin HCL 0.4 MG CAPSULE PO (09:41)
[2023-03-23] MEDS: polyethylene glycoL 3350 17 GM POWD.PACK PO (09:46)
[2023-03-23] MEDS: Acetaminophen 325 MG TABLET 975 MG PO (12:31)
[2023-03-23] MEDS: Artificial Tears 15 ML DROPS 1 DROP EYE-BOTH (12:33)
[2023-03-23] MEDS: Ibuprofen 600 MG TABLET PO (16:02)
[2023-03-23 16:04] VITALS: BP 134/80; PULSE 74
[2023-03-23 18:00] VITALS: BP 136/58; PULSE 65; RESP 18; TEMP 36.3; O2SAT 97
[2023-03-23] MEDS: Sennosides/Docusate Sodium TABLET 2 TAB PO (20:51)
[2023-03-23] MEDS: Nortriptyline HCl 25 MG CAPSULE 50 MG PO (20:52)
[2023-03-23] MEDS: traZODone HCL 100 MG TABLET 200 MG PO (20:53)
[2023-03-23] MEDS: Divalproex Sodium 250 MG TABLET.DR 750 MG PO (20:54)
[2023-03-23] MEDS: OLANZapine 5 MG TABLET PO (20:54)
[2023-03-23] MEDS: Latanoprost 0.005 % Ophth Sol 2.5 ML DROPS 1 DROP EYE-BOTH (21:01)
[2023-03-23] MEDS: Lidocaine 5 % Ointment 35 GM 1 APPL TOPICAL (21:10)
[2023-03-23] MEDS: Clotrimazole 1 % Cream 15 GM TUBE 1 APPL TOPICAL (21:10)
[2023-03-23] MEDS: Hydrocortisone 1 % Cream 28.35 GM TUBE 1 APPL TOPICAL (21:10)
[2023-03-23] MEDS: Nystatin Powder 15 GM BOTTLE 1 APPL TOPICAL (21:16)
--- NOTE | 2023-03-23 21:24 | P.PNPSI_ITS ---
Subjective Subjective Date of Service: 03/23/23 Reason For Visit: Depression hopelessness irritability Subjective Notes: Conditional Voluntary Interim History: Per nursing, pt slept through the night, tired of being here on unit for so long. He went out with nurse for fresh air. At time this functional tester [employer]writers attempted to meet with pt he was sleeping, felt more therapeutic to let him rest at this time. No behavioral concerns out of the usual- some demanding behaviors at times. Medication Compliance: Yes Review of Systems Review of Systems unremarkable Yes all other systems are reviewed and are negative, Unobtainable due to mental condition and Unobtainable due to mental status Mental Status Exam Mental Status Exam Narrative: Patient Appearance: Fatigued and Appropriate Patient Orientation: Person, Place and Situation Level of Consciousness: Sedated Patient Behavior: Guarded, Passive, Fatigued and Distractible Behavior Comments: Mood Description: Withdrawn and Anxious Affect Description: Constricted and Nervous Patient Cognition Impaired: Yes Ability to Follow Directions: Good Speech Pattern: Clear and Slurred Memory Description: Intact Diagnostics Vital Signs (24Hr): Vital Signs - 24 hr 03/23/23 06:00 03/23/23 16:04 Temperature 98.0 F Pulse Rate 79 74 Respiratory Rate 18 Blood Pressure 139/83 134/80 Pulse Oximetry 96 Oxygen Delivery Method Room Air BMI result Body Mass Index 30.2 Labs 03/04/23 07:45 03/04/23 07:45 Imaging Radiology Impressions: ITS Impressions Chest X-Ray 10/20/22 15:45 IMPRESSION: 1. Low lung volumes with bibasilar linear disc atelectasis versus scarring. 2. No airspace consolidation or effusion. Head CT 11/08/22 12:29 IMPRESSION: No acute intracranial hemorrhage or territorial infarction. Stable chronic postoperative changes with gliosis and encephalomalacia in the right frontal and right temporal lobes. Ex vacuo dilatation of the ventricles and diffuse parenchymal volume loss. Right-sided craniotomy changes. Chest X-Ray 11/12/22 10:32 IMPRESSION: Hypoexpanded lungs with bibasilar platelike atelectasis. Brain MRI 11/12/22 13:15 IMPRESSION: 1. No demonstrated acute intracranial abnormalities. 2. Chronic encephalomalacia of the right temporal, right frontal, and left occipital lobes. Small regions of chronic encephalomalacia in the parasagittal aspects of the bilateral parietal lobes. Moderate underlying microangiopathy and generalized cerebral volume loss. Chest X-Ray 11/14/22 15:52 IMPRESSION: Low lung volumes, bibasilar subsegmental atelectasis and slight elevation of the right hemidiaphragm similar to previous exam. Modified Barium Swallow 11/21/22 15:11 IMPRESSION: Laryngeal penetration on several occasions but no laryngeal aspiration. Mild retention of solid food in the valleculae which cleared with subsequent oral administration of water or thin barium. Correlate with speech therapy results. Orbit CT 01/23/23 14:05 IMPRESSION: - No definite significant intraorbital soft tissue findings to assessment is limited on a noncontrast CT of the orbits. No retrobulbar mass lesions and no cellulitic changes appreciated. - There are large fluid levels within the left maxillary sinus and within the right frontal sinus the can be correlated for clinical signs of acute sinusitis. - A peripherally ossified structure extending from the dorsal margin of the right nasolacrimal duct into the right maxillary sinus is stable when compared to examinations dated back to 08/24/2008 favoring a benign etiology. Cervical Spine CT 02/14/23 22:15 IMPRESSION: 1. No acute intracranial abnormality. Stable postsurgical changes with right frontotemporal encephalomalacia, global volume loss, and extraocular dilatation of the right lateral ventricle. 2. No cervical spine fracture or traumatic malalignment. Head CT 02/14/23 22:15 IMPRESSION: 1. No acute intracranial abnormality. Stable postsurgical changes with right frontotemporal encephalomalacia, global volume loss, and extraocular dilatation of the right lateral ventricle. 2. No cervical spine fracture or traumatic malalignment. Hip/Pelvis X-Ray 02/14/23 22:25 IMPRESSION: Moderate degenerative changes of the right hip with loss of superolateral joint space. Similar chronic posttraumatic deformity of the right femoral neck with chronic foreshortening. Status post left total hip arthroplasty in unchanged alignment however the lack of a crosstable lateral view limits assessment for dislocation. No acute fracture or dislocation appreciated on the available views. Foot X-Ray 02/22/23 13:50 IMPRESSION: * Postsurgical changes of arthrodesis first metatarsophalangeal joint. * There is developed large osteophyte from the head of the first metatarsal protruding laterally abutting the head of the second metatarsal. This might be the source of patient's pain. * Underlying degenerative osteoarthritis. Foot X-Ray 02/23/23 14:11 IMPRESSION: Mild degenerative changes MTP, PIP and DIP joints. No visible acute fracture or dislocation seen. Medications Medications Current Medications Acetaminophen (Acetaminophen 325 Mg Tablet) 975 mg PO Q6H PRN PRN Reason: Headache/Pain Mild Scale (1-3) Last Admin: 03/23/23 12:31 Dose: 975 mg Albuterol Sulfate (Albuterol Sulfate 90 Mcg 8 Gm Inhaler) 2 puff INHALE Q6H PRN PRN Reason: Wheezing Alprazolam (Alprazolam 0.5 Mg Tablet) 0.5 mg PO BEDTIME TAZ Last Admin: 03/22/23 22:21 Dose: 0.5 mg Amlodipine Besylate (Amlodipine Besylate 5 Mg Tablet) 5 mg PO DAILY TAZ; Protocol Last Admin: 03/23/23 09:41 Dose: 5 mg Artificial Tears (Artificial Tears 15 Ml Drops) 1 drop EYE-BOTH Q2H PRN PRN Reason: Dry Eyes Last Admin: 03/23/23 12:33 Dose: 1 drop Bisacodyl (Bisacodyl 10 Mg Supp.Rect) 10 mg [place] DAILY PRN PRN Reason: Constipation Clotrimazole (Clotrimazole 1 % Cream 15 Gm Tube) 1 appl TOPICAL BID TAZ; Protocol Last Admin: 03/23/23 21:10 Dose: 1 appl Divalproex Sodium (Divalproex Sodium 250 Mg Tablet.Dr) 750 mg PO BEDTIME TAZ Last Admin: 03/23/23 20:54 Dose: 750 mg Guaifenesin/Dextromethorphan (Guaifenesin Dm 100/10/5 Ml 5 Ml Syrup) 5 ml PO Q4H PRN PRN Reason: cough Last Admin: 03/13/23 03:34 Dose: 5 ml Hydrocortisone (Hydrocortisone 1 % Cream 28.35 Gm Tube) 1 appl TOPICAL BID PRN; Protocol PRN Reason: itchy feet Last Admin: 03/23/23 21:10 Dose: 1 appl Hydroxyzine HCl (Hydroxyzine Hcl 25 Mg Tablet) 25 mg PO Q4H PRN PRN Reason: Anxiety Last Admin: 03/23/23 00:31 Dose: 25 mg Ibuprofen (Ibuprofen 600 Mg Tablet) 600 mg PO Q6H PRN PRN Reason: Pain, Moderate(Pain Scale 4-6) Last Admin: 03/23/23 16:02 Dose: 600 mg Latanoprost (Latanoprost 0.005 % Ophth No 2.5 Ml Drops) 1 drop EYE-BOTH BEDTIME TAZ Last Admin: 03/23/23 21:01 Dose: 1 drop Lidocaine (Lidocaine 5 % Ointment 35 Gm) 1 appl TOPICAL Q6H PRN; Protocol PRN Reason: pain r foot Last Admin: 03/23/23 21:10 Dose: 1 appl Magnesium Hydroxide (Milk Of Magnesia 30 Ml Oral.Susp) 30 ml PO BID PRN PRN Reason: constipation, stomach/GI upset Last Admin: 03/21/23 16:10 Dose: 30 ml Nortriptyline HCl (Nortriptyline Hcl 25 Mg Capsule) 50 mg PO BEDTIME TAZ Last Admin: 03/23/23 20:52 Dose: 50 mg Nystatin (Nystatin Powder 15 Gm Bottle) 1 appl TOPICAL BID TAZ; Protocol Last Admin: 03/23/23 21:16 Dose: 1 appl Olanzapine (Olanzapine 2.5 Mg Tablet) 2.5 mg PO Q4H PRN PRN Reason: anxiety/restlessness Last Admin: 03/22/23 16:03 Dose: 2.5 mg Olanzapine (Olanzapine 2.5 Mg Tablet) 2.5 mg PO DAILY TAZ Last Admin: 03/23/23 09:41 Dose: 2.5 mg Olanzapine (Olanzapine 5 Mg Tablet) 5 mg PO BEDTIME TAZ Last Admin: 03/23/23 20:54 Dose: 5 mg Ondansetron HCl (Ondansetron Odt 4 Mg Tab.Rapdis) 4 mg TRANSLINGU Q6H PRN PRN Reason: Nausea and Vomiting Last Admin: 03/20/23 09:13 Dose: 4 mg Polyethylene Glycol (Polyethylene Glycol 3350 17 Gm Powd.Pack) 17 gm PO BID TAZ Last Admin: 03/23/23 09:46 Dose: 17 gm Propranolol HCl (Propranolol Hcl 10 Mg Tablet) 10 mg PO TID TAZ; Protocol Last Admin: 03/23/23 20:55 Dose: 10 mg Senna/Docusate Sodium (Sennosides/Docusate Sodium Tablet) 2 tab PO BEDTIME TAZ Last Admin: 03/23/23 20:51 Dose: 2 tab Sodium Biphosphate/Sodium Phosphate (Sodium Phosphate,[place]-Dibasic 133 Ml Enema) 133 ml [place] ONCE PRN PRN Reason: Constipation Sodium Chloride (Sodium Chloride 0.65 % Nasal 44 Ml Sprbtl) 1 spray NOSTRIL-B Q1H PRN PRN Reason: Nasal Congestion Last Admin: 02/26/23 21:14 Dose: 1 spray Tamsulosin HCl (Tamsulosin Hcl 0.4 Mg Capsule) 0.4 mg PO DAILY [facility] Last Admin: 03/23/23 09:41 Dose: 0.4 mg Trazodone HCl (Trazodone Hcl 100 Mg Tablet) 200 mg PO BEDTIME [facility] Last Admin: 03/23/23 20:53 Dose: 200 mg Venlafaxine HCl (Venlafaxine Hcl Er 75 Mg Cap.Er.24h) 75 mg PO DAILY [facility] Last Admin: 03/23/23 09:40 Dose: 75 mg Allergies Allergies Allergy/AdvReac Type Severity Reaction Status Date / Time fentanyl [FENTANYL] Allergy Intermediate unknown Verified 04/08/22 07:00 Assessment & Plan Assessment & Plan (1) Major depressive disorder, recurrent severe without psychotic features: Status: Acute Code(s): F33.2 - Major depressive disorder, recurrent severe without psychotic features (2) Cognitive and neurobehavioral dysfunction following brain injury: Status: Acute Code(s): G31.89 - Other specified degenerative diseases of nervous system; F09 - Unspecified mental disorder due to known physiological condition; S06.9X9S - Unspecified intracranial injury with loss of consciousness of unspecified duration, sequela (3) Personality disorder in adult: Status: Acute Code(s): F60.9 - Personality disorder, unspecified Plan ALPRAZOLAM 0.25 B.I.D. 0.5 BEDTIME OLANZAPINE ALSO 3 TIMES A DAY CONTINUE DEPAKOTE START PROPRANOLOL 10 T.I.D. THE PATIENT CONFRONTED REGARDING NEGATIVE TOXIC BEHAVIOR DIFFICULTY COPING AND NEGATIVE COMPLICATIONS TO HIS LIFE IF CON TINUE VERBALLY AGGRESSIVE AND TOXIC BEHAVIOR WITH OTHERS DEVALUATION ENCOURAGE REFLECTION STRESS MANAGEMENT COPING STRATEGIES 03/07 continue same treatment 03/08 continue same treatment 03/09 continue same treatment 03/10/23 Lower alprazolam .125 mg bid hold afternoon olanzapine secondary to slurring oversedation cont propranolol 03/11/23 Pt doing better less sedated struggles to maintain pos attitude 03/13 continue tx. 03/14: stable presentation, no change in mgmt. 03/15: appears sedated. no change in mgmt today. to F/U with attending tomorrow re meds for anxiety. 03/16 continue tx. 03/17 continue tx. 03/18 continue tx. 03/19 continue tx. 03/22 continue tx. 03/23 continue tx. Reason for continued inpatient stay Substantial Risk for: inability to function Time Spent With Patient Time: Total time managing care of this patient today ____ minutes.
[2023-03-23] MEDS: ALPRAZolam 0.5 MG TABLET PO (22:00)
[2023-03-24 08:07] VITALS: BP 133/77; PULSE 71; RESP 15; TEMP 36.3; O2SAT 95
[2023-03-24] MEDS: OLANZapine 2.5 MG TABLET PO (08:34)
[2023-03-24] MEDS: Tamsulosin HCL 0.4 MG CAPSULE PO (08:34)
[2023-03-24] MEDS: polyethylene glycoL 3350 17 GM POWD.PACK PO (08:34)
[2023-03-24] MEDS: amLODIPine Besylate 5 MG TABLET PO (08:34)
[2023-03-24] MEDS: Venlafaxine HCl ER 75 MG CAP.ER.24H PO (08:34)
[2023-03-24] MEDS: Propranolol HCL 10 MG TABLET PO ×3 (08:34→21:32)
[2023-03-24] MEDS: Artificial Tears 15 ML DROPS 1 DROP EYE-BOTH (12:33)
[2023-03-24] MEDS: Ibuprofen 600 MG TABLET PO (14:14)
--- NOTE | 2023-03-24 15:46 | P.PNPSI_ITS ---
Subjective Subjective Date of Service: 03/24/23 Reason For Visit: Depression hopelessness irritability Subjective Notes: Conditional Voluntary Healthcare Proxy: No Interim History: pt somewhat labile at times Future oriented some periods of irritability can need redirection Medication Compliance: Yes Mental Status Exam Mental Status Exam Narrative: Patient Appearance: Fatigued and Appropriate Patient Orientation: Person, Place and Situation Level of Consciousness: Sedated Patient Behavior: Guarded, Passive, Fatigued and Distractible Behavior Comments: Mood Description: Withdrawn and Anxious Affect Description: Constricted and Nervous Patient Cognition Impaired: Yes Ability to Follow Directions: Good Speech Pattern: Clear and Slurred Memory Description: Intact Diagnostics Vital Signs (24Hr): Vital Signs - 24 hr 03/23/23 16:04 03/23/23 18:00 03/24/23 08:07 Temperature 97.4 F 97.4 F Pulse Rate 74 65 71 Respiratory Rate 18 15 Blood Pressure 134/80 136/58 L 133/77 Pulse Oximetry 97 95 Oxygen Delivery Method Room Air Room Air BMI result Body Mass Index 30.2 Labs 03/04/23 07:45 03/04/23 07:45 Imaging Radiology Impressions: ITS Impressions Chest X-Ray 10/20/22 15:45 IMPRESSION: 1. Low lung volumes with bibasilar linear disc atelectasis versus scarring. 2. No airspace consolidation or effusion. Head CT 11/08/22 12:29 IMPRESSION: No acute intracranial hemorrhage or territorial infarction. Stable chronic postoperative changes with gliosis and encephalomalacia in the right frontal and right temporal lobes. Ex vacuo dilatation of the ventricles and diffuse parenchymal volume loss. Right-sided craniotomy changes. Chest X-Ray 11/12/22 10:32 IMPRESSION: Hypoexpanded lungs with bibasilar platelike atelectasis. Brain MRI 11/12/22 13:15 IMPRESSION: 1. No demonstrated acute intracranial abnormalities. 2. Chronic encephalomalacia of the right temporal, right frontal, and left occipital lobes. Small regions of chronic encephalomalacia in the parasagittal aspects of the bilateral parietal lobes. Moderate underlying microangiopathy and generalized cerebral volume loss. Chest X-Ray 11/14/22 15:52 IMPRESSION: Low lung volumes, bibasilar subsegmental atelectasis and slight elevation of the right hemidiaphragm similar to previous exam. Modified Barium Swallow 11/21/22 15:11 IMPRESSION: Laryngeal penetration on several occasions but no laryngeal aspiration. Mild retention of solid food in the valleculae which cleared with subsequent oral administration of water or thin barium. Correlate with speech therapy results. Orbit CT 01/23/23 14:05 IMPRESSION: - No definite significant intraorbital soft tissue findings to assessment is limited on a noncontrast CT of the orbits. No retrobulbar mass lesions and no cellulitic changes appreciated. - There are large fluid levels within the left maxillary sinus and within the right frontal sinus the can be correlated for clinical signs of acute sinusitis. - A peripherally ossified structure extending from the dorsal margin of the right nasolacrimal duct into the right maxillary sinus is stable when compared to examinations dated back to 08/24/2008 favoring a benign etiology. Cervical Spine CT 02/14/23 22:15 IMPRESSION: 1. No acute intracranial abnormality. Stable postsurgical changes with right frontotemporal encephalomalacia, global volume loss, and extraocular dilatation of the right lateral ventricle. 2. No cervical spine fracture or traumatic malalignment. Head CT 02/14/23 22:15 IMPRESSION: 1. No acute intracranial abnormality. Stable postsurgical changes with right frontotemporal encephalomalacia, global volume loss, and extraocular dilatation of the right lateral ventricle. 2. No cervical spine fracture or traumatic malalignment. Hip/Pelvis X-Ray 02/14/23 22:25 IMPRESSION: Moderate degenerative changes of the right hip with loss of superolateral joint space. Similar chronic posttraumatic deformity of the right femoral neck with chronic foreshortening. Status post left total hip arthroplasty in unchanged alignment however the lack of a crosstable lateral view limits assessment for dislocation. No acute fracture or dislocation appreciated on the available views. Foot X-Ray 02/22/23 13:50 IMPRESSION: * Postsurgical changes of arthrodesis first metatarsophalangeal joint. * There is developed large osteophyte from the head of the first metatarsal protruding laterally abutting the head of the second metatarsal. This might be the source of patient's pain. * Underlying degenerative osteoarthritis. Foot X-Ray 02/23/23 14:11 IMPRESSION: Mild degenerative changes MTP, PIP and DIP joints. No visible acute fracture or dislocation seen. Medications Medications Current Medications Acetaminophen (Acetaminophen 325 Mg Tablet) 975 mg PO Q6H PRN PRN Reason: Headache/Pain Mild Scale (1-3) Last Admin: 03/23/23 12:31 Dose: 975 mg Albuterol Sulfate (Albuterol Sulfate 90 Mcg 8 Gm Inhaler) 2 puff INHALE Q6H PRN PRN Reason: Wheezing Alprazolam (Alprazolam 0.5 Mg Tablet) 0.5 mg PO BEDTIME TAZ Last Admin: 03/23/23 22:00 Dose: 0.5 mg Amlodipine Besylate (Amlodipine Besylate 5 Mg Tablet) 5 mg PO DAILY TAZ; Protocol Last Admin: 03/24/23 08:34 Dose: 5 mg Artificial Tears (Artificial Tears 15 Ml Drops) 1 drop EYE-BOTH Q2H PRN PRN Reason: Dry Eyes Last Admin: 03/24/23 12:33 Dose: 1 drop Bisacodyl (Bisacodyl 10 Mg Supp.Rect) 10 mg NE DAILY PRN PRN Reason: Constipation Clotrimazole (Clotrimazole 1 % Cream 15 Gm Tube) 1 appl TOPICAL BID TAZ; Protocol Last Admin: 03/24/23 08:35 Dose: Not Given Divalproex Sodium (Divalproex Sodium 250 Mg Tablet.Dr) 750 mg PO BEDTIME TAZ Last Admin: 03/23/23 20:54 Dose: 750 mg Guaifenesin/Dextromethorphan (Guaifenesin Dm 100/10/5 Ml 5 Ml Syrup) 5 ml PO Q4H PRN PRN Reason: cough Last Admin: 03/13/23 03:34 Dose: 5 ml Hydrocortisone (Hydrocortisone 1 % Cream 28.35 Gm Tube) 1 appl TOPICAL BID PRN; Protocol PRN Reason: itchy feet Last Admin: 03/23/23 21:10 Dose: 1 appl Hydroxyzine HCl (Hydroxyzine Hcl 25 Mg Tablet) 25 mg PO Q4H PRN PRN Reason: Anxiety Last Admin: 03/23/23 23:38 Dose: 25 mg Ibuprofen (Ibuprofen 600 Mg Tablet) 600 mg PO Q6H PRN PRN Reason: Pain, Moderate(Pain Scale 4-6) Last Admin: 03/24/23 14:14 Dose: 600 mg Latanoprost (Latanoprost 0.005 % Ophth No 2.5 Ml Drops) 1 drop EYE-BOTH BEDTIME TAZ Last Admin: 03/23/23 21:01 Dose: 1 drop Lidocaine (Lidocaine 5 % Ointment 35 Gm) 1 appl TOPICAL Q6H PRN; Protocol PRN Reason: pain r foot Last Admin: 03/23/23 21:10 Dose: 1 appl Magnesium Hydroxide (Milk Of Magnesia 30 Ml Oral.Susp) 30 ml PO BID PRN PRN Reason: constipation, stomach/GI upset Last Admin: 03/21/23 16:10 Dose: 30 ml Nortriptyline HCl (Nortriptyline Hcl 25 Mg Capsule) 50 mg PO BEDTIME TAZ Last Admin: 03/23/23 20:52 Dose: 50 mg Nystatin (Nystatin Powder 15 Gm Bottle) 1 appl TOPICAL BID TAZ; Protocol Last Admin: 03/24/23 08:35 Dose: Not Given Olanzapine (Olanzapine 2.5 Mg Tablet) 2.5 mg PO Q4H PRN PRN Reason: anxiety/restlessness Last Admin: 03/22/23 16:03 Dose: 2.5 mg Olanzapine (Olanzapine 2.5 Mg Tablet) 2.5 mg PO DAILY TAZ Last Admin: 03/24/23 08:34 Dose: 2.5 mg Olanzapine (Olanzapine 5 Mg Tablet) 5 mg PO BEDTIME TAZ Last Admin: 03/23/23 20:54 Dose: 5 mg Ondansetron HCl (Ondansetron Odt 4 Mg Tab.Rapdis) 4 mg TRANSLINGU Q6H PRN PRN Reason: Nausea and Vomiting Last Admin: 03/20/23 09:13 Dose: 4 mg Polyethylene Glycol (Polyethylene Glycol 3350 17 Gm Powd.Pack) 17 gm PO BID TAZ Last Admin: 03/24/23 08:34 Dose: 17 gm Propranolol HCl (Propranolol Hcl 10 Mg Tablet) 10 mg PO TID TAZ; Protocol Last Admin: 03/24/23 14:29 Dose: 10 mg Senna/Docusate Sodium (Sennosides/Docusate Sodium Tablet) 2 tab PO BEDTIME TAZ Last Admin: 03/23/23 20:51 Dose: 2 tab Sodium Biphosphate/Sodium Phosphate (Sodium Phosphate,[place]-Dibasic 133 Ml Enema) 133 ml NE ONCE PRN PRN Reason: Constipation Sodium Chloride (Sodium Chloride 0.65 % Nasal 44 Ml Sprbtl) 1 spray NOSTRIL-B Q1H PRN PRN Reason: Nasal Congestion Last Admin: 02/26/23 21:14 Dose: 1 spray Tamsulosin HCl (Tamsulosin Hcl 0.4 Mg Capsule) 0.4 mg PO DAILY [facility] Last Admin: 03/24/23 08:34 Dose: 0.4 mg Trazodone HCl (Trazodone Hcl 100 Mg Tablet) 200 mg PO BEDTIME [facility] Last Admin: 03/23/23 20:53 Dose: 200 mg Venlafaxine HCl (Venlafaxine Hcl Er 75 Mg Cap.Er.24h) 75 mg PO DAILY [facility] Last Admin: 03/24/23 08:34 Dose: 75 mg Allergies Allergies Allergy/AdvReac Type Severity Reaction Status Date / Time fentanyl [FENTANYL] Allergy Intermediate unknown Verified 04/08/22 07:00 Assessment & Plan Assessment & Plan (1) Major depressive disorder, recurrent severe without psychotic features: Status: Acute Code(s): F33.2 - Major depressive disorder, recurrent severe without psychotic features (2) Cognitive and neurobehavioral dysfunction following brain injury: Status: Acute Code(s): G31.89 - Other specified degenerative diseases of nervous system; F09 - Unspecified mental disorder due to known physiological condition; S06.9X9S - Unspecified intracranial injury with loss of consciousness of unspecified duration, sequela (3) Personality disorder in adult: Status: Acute Code(s): F60.9 - Personality disorder, unspecified Plan ALPRAZOLAM 0.25 B.I.D. 0.5 BEDTIME OLANZAPINE ALSO 3 TIMES A DAY CONTINUE DEPAKOTE START PROPRANOLOL 10 T.I.D. THE PATIENT CONFRONTED REGARDING NEGATIVE TOXIC BEHAVIOR DIFFICULTY COPING AND NEGATIVE COMPLICATIONS TO HIS LIFE IF CONTINUE VERBALLY AGGRESSIVE AND TOXIC BEHAVIOR WITH OTHERS DEVALUATION ENCOURAGE REFLECTION STRESS MANAGEMENT COPING STRATEGIES 03/07 continue same treatment 03/08 continue same treatment 03/09 continue same treatment 03/10/23 Lower alprazolam .125 mg bid hold afternoon olanzapine secondary to slurring oversedation cont propranolol 03/11/23 Pt doing better less sedated struggles to maintain pos attitude 03/13 continue tx. 03/14: stable presentation, no change in mgmt. 03/15: appears sedated. no change in mgmt today. to F/U with attending tomorrow re meds for anxiety. 03/16 continue tx. 03/17 continue tx. 03/18 continue tx. 03/19 continue tx. 03/22 continue tx. 03/23 continue tx. 03/24/2023 Continue treatment plan discharge planning Patient educated on: therapeutic strategies Informed Consent: understands Reason for continued inpatient stay Substantial Risk for: inability to function and rapid decompensation Time Spent With Patient Time: Total time managing care of this patient today ____ minutes.
[2023-03-24 18:00] VITALS: BP 133/65; PULSE 64; RESP 18; TEMP 36.2; O2SAT 95
[2023-03-24] MEDS: ALPRAZolam 0.25 MG TABLET 0.125 MG PO (18:23)
[2023-03-24] MEDS: traZODone HCL 100 MG TABLET 200 MG PO (21:30)
[2023-03-24] MEDS: Nortriptyline HCl 25 MG CAPSULE 50 MG PO (21:31)
[2023-03-24] MEDS: Divalproex Sodium 250 MG TABLET.DR 750 MG PO (21:31)
[2023-03-24] MEDS: ALPRAZolam 0.5 MG TABLET PO (21:32)
[2023-03-24] MEDS: Sennosides/Docusate Sodium TABLET 2 TAB PO (21:32)
[2023-03-24] MEDS: OLANZapine 5 MG TABLET PO (21:33)
[2023-03-24] MEDS: Latanoprost 0.005 % Ophth Sol 2.5 ML DROPS 1 DROP EYE-BOTH (21:36)
[2023-03-24] MEDS: Clotrimazole 1 % Cream 15 GM TUBE 1 APPL TOPICAL (21:43)
[2023-03-25 07:30] VITALS: BP 93/66; PULSE 72; RESP 16; TEMP 36.2; O2SAT 94
[2023-03-25] MEDS: polyethylene glycoL 3350 17 GM POWD.PACK PO (08:15)
[2023-03-25] MEDS: amLODIPine Besylate 5 MG TABLET PO (08:16)
[2023-03-25] MEDS: Venlafaxine HCl ER 75 MG CAP.ER.24H PO (08:17)
[2023-03-25] MEDS: OLANZapine 2.5 MG TABLET PO (08:17)
[2023-03-25] MEDS: Propranolol HCL 10 MG TABLET PO ×3 (08:17→20:44)
[2023-03-25] MEDS: Tamsulosin HCL 0.4 MG CAPSULE PO (08:17)
[2023-03-25] MEDS: Artificial Tears 15 ML DROPS 1 DROP EYE-BOTH ×2 (08:33→18:00)
[2023-03-25 18:00] VITALS: BP 109/61; PULSE 72; RESP 18; TEMP 36.1; O2SAT 95
[2023-03-25] MEDS: ALPRAZolam 0.25 MG TABLET 0.125 MG PO (18:00)
[2023-03-25] MEDS: OLANZapine 5 MG TABLET PO (20:44)
[2023-03-25] MEDS: Divalproex Sodium 250 MG TABLET.DR 750 MG PO (20:44)
[2023-03-25] MEDS: Nortriptyline HCl 25 MG CAPSULE 50 MG PO (20:44)
[2023-03-25] MEDS: traZODone HCL 100 MG TABLET 200 MG PO (20:44)
[2023-03-25] MEDS: ALPRAZolam 0.5 MG TABLET PO (20:45)
[2023-03-25] MEDS: Latanoprost 0.005 % Ophth Sol 2.5 ML DROPS 1 DROP EYE-BOTH (20:45)
[2023-03-25] MEDS: Sennosides/Docusate Sodium TABLET 2 TAB PO (20:45)
[2023-03-26] MEDS: hydrOXYzine HCL 25 MG TABLET PO ×2 (00:58→18:02)
[2023-03-26 07:50] VITALS: BP 129/66; PULSE 82; RESP 18; TEMP 36.4; O2SAT 96
[2023-03-26] MEDS: amLODIPine Besylate 5 MG TABLET PO (08:29)
[2023-03-26] MEDS: Venlafaxine HCl ER 75 MG CAP.ER.24H PO (08:29)
[2023-03-26] MEDS: Propranolol HCL 10 MG TABLET PO ×2 (08:29→20:54)
[2023-03-26] MEDS: Tamsulosin HCL 0.4 MG CAPSULE PO (08:29)
[2023-03-26] MEDS: OLANZapine 2.5 MG TABLET PO (08:30)
[2023-03-26] MEDS: polyethylene glycoL 3350 17 GM POWD.PACK PO (08:33)
[2023-03-26] MEDS: Clotrimazole 1 % Cream 15 GM TUBE 1 APPL TOPICAL ×2 (09:15→20:48)
[2023-03-26] MEDS: Nystatin Powder 15 GM BOTTLE 1 APPL TOPICAL ×2 (09:16→20:55)
[2023-03-26] MEDS: ALPRAZolam 0.25 MG TABLET 0.125 MG PO ×2 (13:15→18:01)
[2023-03-26 18:00] VITALS: RESP 16
[2023-03-26] MEDS: Acetaminophen 325 MG TABLET 975 MG PO (18:00)
--- NOTE | 2023-03-26 20:33 | HO.PSYCHPN ---
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 denies self-harming thoughts no psychosis Medication Compliance: Yes Review of Systems Acute medical concerns: No Mental Status Exam Mental Status Exam Narrative: Patient Appearance: Fatigued and Appropriate Patient Orientation: Person, Place and Situation Level of Consciousness: Awake Patient Behavior: Guarded, Passive, Fatigued and Distractible Behavior Comments: Mood Description: Withdrawn and Anxious Affect Description: Constricted and Nervous Patient Cognition Impaired: Yes Ability to Follow Directions: Good Speech Pattern: Clear and Slurred Memory Description: Intact Diagnostics Vital Signs (24Hr): Vital Signs - 24 hr 03/26/23 07:50 Temperature 97.6 F Pulse Rate 82 Respiratory Rate 18 Blood Pressure 129/66 Pulse Oximetry 96 Oxygen Delivery Method Room Air BMI result Body Mass Index 30.2 Labs 03/04/23 07:45 03/04/23 07:45 Imaging Radiology Impressions: ITS Impressions Chest X-Ray 10/20/22 15:45 IMPRESSION: 1. Low lung volumes with bibasilar linear disc atelectasis versus scarring. 2. No airspace consolidation or effusion. Head CT 11/08/22 12:29 IMPRESSION: No acute intracranial hemorrhage or territorial infarction. Stable chronic postoperative changes with gliosis and encephalomalacia in the right frontal and right temporal lobes. Ex vacuo dilatation of the ventricles and diffuse parenchymal volume loss. Right-sided craniotomy changes. Chest X-Ray 11/12/22 10:32 IMPRESSION: Hypoexpanded lungs with bibasilar platelike atelectasis. Brain MRI 11/12/22 13:15 IMPRESSION: 1. No demonstrated acute intracranial abnormalities. 2. Chronic encephalomalacia of the right temporal, right frontal, and left occipital lobes. Small regions of chronic encephalomalacia in the parasagittal aspects of the bilateral parietal lobes. Moderate underlying microangiopathy and generalized cerebral volume loss. Chest X-Ray 11/14/22 15:52 IMPRESSION: Low lung volumes, bibasilar subsegmental atelectasis and slight elevation of the right hemidiaphragm similar to previous exam. Modified Barium Swallow 11/21/22 15:11 IMPRESSION: Laryngeal penetration on several occasions but no laryngeal aspiration. Mild retention of solid food in the valleculae which cleared with subsequent oral administration of water or thin barium. Correlate with speech therapy results. Orbit CT 01/23/23 14:05 IMPRESSION: - No definite significant intraorbital soft tissue findings to assessment is limited on a noncontrast CT of the orbits. No retrobulbar mass lesions and no cellulitic changes appreciated. - There are large fluid levels within the left maxillary sinus and within the right frontal sinus the can be correlated for clinical signs of acute sinusitis. - A peripherally ossified structure extending from the dorsal margin of the right nasolacrimal duct into the right maxillary sinus is stable when compared to examinations dated back to 08/24/2008 favoring a benign etiology. Cervical Spine CT 02/14/23 22:15 IMPRESSION: 1. No acute intracranial abnormality. Stable postsurgical changes with right frontotemporal encephalomalacia, global volume loss, and extraocular dilatation of the right lateral ventricle. 2. No cervical spine fracture or traumatic malalignment. Head CT 02/14/23 22:15 IMPRESSION: 1. No acute intracranial abnormality. Stable postsurgical changes with right frontotemporal encephalomalacia, global volume loss, and extraocular dilatation of the right lateral ventricle. 2. No cervical spine fracture or traumatic malalignment. Hip/Pelvis X-Ray 02/14/23 22:25 IMPRESSION: Moderate degenerative changes of the right hip with loss of superolateral joint space. Similar chronic posttraumatic deformity of the right femoral neck with chronic foreshortening. Status post left total hip arthroplasty in unchanged alignment however the lack of a crosstable lateral view limits assessment for dislocation. No acute fracture or dislocation appreciated on the available views. Foot X-Ray 02/22/23 13:50 IMPRESSION: * Postsurgical changes of arthrodesis first metatarsophalangeal joint. * There is developed large osteophyte from the head of the first metatarsal protruding laterally abutting the head of the second metatarsal. This might be the source of patient's pain. * Underlying degenerative osteoarthritis. Foot X-Ray 02/23/23 14:11 IMPRESSION: Mild degenerative changes MTP, PIP and DIP joints. No visible acute fracture or dislocation seen. Medications Medications Current Medications Acetaminophen (Acetaminophen 325 Mg Tablet) 975 mg PO Q6H PRN PRN Reason: Headache/Pain Mild Scale (1-3) Last Admin: 05/11/23 18:00 Dose: 975 mg Albuterol Sulfate (Albuterol Sulfate 90 Mcg 8 Gm Inhaler) 2 puff INHALE Q6H PRN PRN Reason: Wheezing Alprazolam (Alprazolam 0.5 Mg Tablet) 0.5 mg PO BEDTIME TAZ Last Admin: 03/25/23 20:45 Dose: 0.5 mg Alprazolam (Alprazolam 0.25 Mg Tablet) 0.125 mg PO Q4H PRN PRN Reason: anxiety/restlessness Last Admin: 03/26/23 18:01 Dose: 0.125 mg Amlodipine Besylate (Amlodipine Besylate 5 Mg Tablet) 5 mg PO DAILY TAZ; Protocol Last Admin: 03/26/23 08:29 Dose: 5 mg Artificial Tears (Artificial Tears 15 Ml Drops) 1 drop EYE-BOTH Q2H PRN PRN Reason: Dry Eyes Last Admin: 03/25/23 18:00 Dose: 1 drop Bisacodyl (Bisacodyl 10 Mg Supp.Rect) 10 mg [place] DAILY PRN PRN Reason: Constipation Clotrimazole (Clotrimazole 1 % Cream 15 Gm Tube) 1 appl TOPICAL BID TAZ; Protocol Last Admin: 03/26/23 09:15 Dose: 1 appl Divalproex Sodium (Divalproex Sodium 250 Mg Tablet.Dr) 750 mg PO BEDTIME TAZ Last Admin: 03/25/23 20:44 Dose: 750 mg Guaifenesin/Dextromethorphan (Guaifenesin Dm 100/10/5 Ml 5 Ml Syrup) 5 ml PO Q4H PRN PRN Reason: cough Last Admin: 03/13/23 03:34 Dose: 5 ml Hydrocortisone (Hydrocortisone 1 % Cream 28.35 Gm Tube) 1 appl TOPICAL BID PRN; Protocol PRN Reason: itchy feet Last Admin: 03/23/23 21:10 Dose: 1 appl Hydroxyzine HCl (Hydroxyzine Hcl 25 Mg Tablet) 25 mg PO Q4H PRN PRN Reason: Anxiety Last Admin: 03/26/23 18:02 Dose: 25 mg Ibuprofen (Ibuprofen 600 Mg Tablet) 600 mg PO Q6H PRN PRN Reason: Pain, Moderate(Pain Scale 4-6) Last Admin: 03/24/23 14:14 Dose: 600 mg Latanoprost (Latanoprost 0.005 % Ophth No 2.5 Ml Drops) 1 drop EYE-BOTH BEDTIME TAZ Last Admin: 03/25/23 20:45 Dose: 1 drop Lidocaine (Lidocaine 5 % Ointment 35 Gm) 1 appl TOPICAL Q6H PRN; Protocol PRN Reason: pain r foot Last Admin: 03/23/23 21:10 Dose: 1 appl Magnesium Hydroxide (Milk Of Magnesia 30 Ml Oral.Susp) 30 ml PO BID PRN PRN Reason: constipation, stomach/GI upset Last Admin: 03/21/23 16:10 Dose: 30 ml Nortriptyline HCl (Nortriptyline Hcl 25 Mg Capsule) 50 mg PO BEDTIME TAZ Last Admin: 03/25/23 20:44 Dose: 50 mg Nystatin (Nystatin Powder 15 Gm Bottle) 1 appl TOPICAL BID ATZ; Protocol Last Admin: 03/26/23 09:16 Dose: 1 appl Olanzapine (Olanzapine 2.5 Mg Tablet) 2.5 mg PO Q4H PRN PRN Reason: anxiety/restlessness Last Admin: 03/22/23 16:03 Dose: 2.5 mg Olanzapine (Olanzapine 2.5 Mg Tablet) 2.5 mg PO DAILY TAZ Last Admin: 03/26/23 08:30 Dose: 2.5 mg Olanzapine (Olanzapine 5 Mg Tablet) 5 mg PO BEDTIME ATZ Last Admin: 03/25/23 20:44 Dose: 5 mg Ondansetron HCl (Ondansetron Odt 4 Mg Tab.Rapdis) 4 mg TRANSLINGU Q6H PRN PRN Reason: Nausea and Vomiting Last Admin: 03/20/23 09:13 Dose: 4 mg Polyethylene Glycol (Polyethylene Glycol 3350 17 Gm Powd.Pack) 17 gm PO BID TAZ Last Admin: 03/26/23 08:33 Dose: 17 gm Propranolol HCl (Propranolol Hcl 10 Mg Tablet) 10 mg PO TID TAZ; Protocol Last Admin: 03/26/23 14:46 Dose: Not Given Senna/Docusate Sodium (Sennosides/Docusate Sodium Tablet) 2 tab PO BEDTIME TAZ Last Admin: 03/25/23 20:45 Dose: 2 tab Sodium Chloride (Sodium Chloride 0.65 % Nasal 44 Ml Sprbtl) 1 spray NOSTRIL-B Q1H PRN PRN Reason: Nasal Congestion Last Admin: 02/26/23 21:14 Dose: 1 spray Tamsulosin HCl (Tamsulosin Hcl 0.4 Mg Capsule) 0.4 mg PO DAILY [facility] Last Admin: 03/26/23 08:29 Dose: 0.4 mg Trazodone HCl (Trazodone Hcl 100 Mg Tablet) 200 mg PO BEDTIME [facility] Last Admin: 03/25/23 20:44 Dose: 200 mg Venlafaxine HCl (Venlafaxine Hcl Er 75 Mg Cap.Er.24h) 75 mg PO DAILY [facility] Last Admin: 03/26/23 08:29 Dose: 75 mg Allergies Allergies Allergy/AdvReac Type Severity Reaction Status Date / Time fentanyl [FENTANYL] Allergy Intermediate unknown Verified 04/08/22 07:00 Assessment & Plan Assessment & Plan (1) Major depressive disorder, recurrent severe without psychotic features: Status: Acute Code(s): F33.2 - Major depressive disorder, recurrent severe without psychotic features (2) Cognitive and neurobehavioral dysfunction following brain injury: Status: Acute Code(s): G31.89 - Other specified degenerative diseases of nervous system; F09 - Unspecified mental disorder due to known physiological condition; S06.9X9S - Unspecified intracranial injury with loss of consciousness of unspecified duration, sequela (3) Personality disorder in adult: Status: Acute Code(s): F60.9 - Personality disorder, unspecified Plan ALPRAZOLAM 0.25 B.I.D. 0.5 BEDTIME OLANZAPINE ALSO 3 TIMES A DAY CONTINUE DEPAKOTE START PROPRANOLOL 10 T.I.D. THE PATIENT CONFRONTED REGARDING NEGATIVE TOXIC BEHAVIOR DIFFICULTY COPING AND NEGATIVE COMPLICATIONS TO HIS LIFE IF CONTINUE VERBALLY AGGRESSIVE AND TOXIC BEHAVIOR WITH OTHERS DEVALUATION ENCOURAGE REFLECTION STRESS MANAGEMENT COPING STRATEGIES 03/07 continue same treatment 03/08 continue same treatment 03/09 continue same treatment 03/10/23 Lower alprazolam .125 mg bid hold afternoon olanzapine secondary to slurring oversedation cont propranolol 03/11/23 Pt doing better less sedated struggles to maintain pos attitude 03/13 continue tx. 03/14: stable presentation, no change in mgmt. 03/15: appears sedated. no change in mgmt today. to F/U with attending tomorrow re meds for anxiety. 03/16 continue tx. 03/17 continue tx. 03/18 continue tx. 03/19 continue tx. 03/22 continue tx. 03/23 continue tx. 03/24/2023 Continue treatment plan discharge planning 03/25/2023 Continue plan of care 03/26/2023 Continued discharge planning needs much reassurance Reason for continued inpatient stay Substantial Risk for: inability to function, rapid decompensation and med/psych decompensation Time Spent With Patient Time: Total time managing care of this patient today ____ minutes.
[2023-03-26] MEDS: Latanoprost 0.005 % Ophth Sol 2.5 ML DROPS 1 DROP EYE-BOTH (20:48)
[2023-03-26] MEDS: Sennosides/Docusate Sodium TABLET 2 TAB PO (20:52)
[2023-03-26] MEDS: Nortriptyline HCl 25 MG CAPSULE 50 MG PO (20:52)
[2023-03-26] MEDS: traZODone HCL 100 MG TABLET 200 MG PO (20:53)
[2023-03-26] MEDS: Divalproex Sodium 250 MG TABLET.DR 750 MG PO (20:53)
[2023-03-26] MEDS: OLANZapine 5 MG TABLET PO (20:54)
[2023-03-26] MEDS: ALPRAZolam 0.5 MG TABLET PO (20:55)
[2023-03-26] MEDS: Hydrocortisone 1 % Cream 28.35 GM TUBE 1 APPL TOPICAL (21:00)
[2023-03-26] MEDS: Ibuprofen 600 MG TABLET PO (21:16)
[2023-03-27 07:50] VITALS: BP 154/80; PULSE 78; RESP 18; TEMP 35.8; O2SAT 96
[2023-03-27] MEDS: amLODIPine Besylate 5 MG TABLET PO (09:23)
[2023-03-27] MEDS: Tamsulosin HCL 0.4 MG CAPSULE PO (09:24)
[2023-03-27] MEDS: Propranolol HCL 10 MG TABLET PO ×3 (09:24→21:04)
[2023-03-27] MEDS: Venlafaxine HCl ER 75 MG CAP.ER.24H PO (09:24)
[2023-03-27] MEDS: OLANZapine 2.5 MG TABLET PO (09:24)
[2023-03-27] MEDS: Ibuprofen 600 MG TABLET PO (09:24)
[2023-03-27] MEDS: polyethylene glycoL 3350 17 GM POWD.PACK PO (09:25)
[2023-03-27] MEDS: Clotrimazole 1 % Cream 15 GM TUBE 1 APPL TOPICAL ×2 (09:25→21:08)
[2023-03-27] MEDS: Lidocaine 5 % Ointment 35 GM 1 APPL TOPICAL ×2 (14:48→21:09)
[2023-03-27] MEDS: Nystatin Powder 15 GM BOTTLE 1 APPL TOPICAL ×2 (14:48→21:08)
[2023-03-27 15:36] VITALS: BP 120/63; PULSE 69
[2023-03-27 18:00] VITALS: BP 148/64; PULSE 67; RESP 18; TEMP 36.4; O2SAT 96
[2023-03-27] MEDS: Acetaminophen 325 MG TABLET 975 MG PO (21:02)
[2023-03-27] MEDS: Divalproex Sodium 250 MG TABLET.DR 750 MG PO (21:03)
[2023-03-27] MEDS: Sennosides/Docusate Sodium TABLET 2 TAB PO (21:03)
[2023-03-27] MEDS: Nortriptyline HCl 25 MG CAPSULE 50 MG PO (21:03)
[2023-03-27] MEDS: ALPRAZolam 0.5 MG TABLET PO (21:04)
[2023-03-27] MEDS: OLANZapine 5 MG TABLET PO (21:04)
[2023-03-27] MEDS: traZODone HCL 100 MG TABLET 200 MG PO (21:04)
[2023-03-27] MEDS: Hydrocortisone 1 % Cream 28.35 GM TUBE 1 APPL TOPICAL (21:08)
[2023-03-27] MEDS: Latanoprost 0.005 % Ophth Sol 2.5 ML DROPS 1 DROP EYE-BOTH (22:02)
[2023-03-27] MEDS: guaiFENesin DM 100/10/5 ML 5 ML SYRUP PO (22:10)
--- NOTE | 2023-03-27 22:15 | P.PNPSI_ITS ---
Subjective Subjective Date of Service: 03/27/23 Reason For Visit: Depression hopelessness irritability Subjective Notes: Conditional Voluntary Interim History: Pt reports waiting patiently to transfer to . Pt denies SI/HI. Sleeping and eating well. Napping during the day. No behavioral concerns. Medication Compliance: Yes Review of Systems Review of Systems unremarkable Yes all other systems are reviewed and are negative, Unobtainable due to mental condition and Unobtainable due to mental status Mental Status Exam Mental Status Exam Narrative: Patient Appearance: Fatigued and Appropriate Patient Orientation: Person, Place and Situation Level of Consciousness: Awake Patient Behavior: Guarded, Passive, Fatigued and Distractible Behavior Comments: Mood Description: Withdrawn and Anxious Affect Description: Constricted and Nervous Patient Cognition Impaired: Yes Ability to Follow Directions: Good Speech Pattern: Clear and Slurred Memory Description: Intact Diagnostics Vital Signs (24Hr): Vital Signs - 24 hr 03/27/23 07:50 03/27/23 15:36 03/27/23 18:00 Temperature 96.5 F L 97.6 F Pulse Rate 78 69 67 Respiratory Rate 18 18 Blood Pressure 154/80 H 120/63 148/64 H Pulse Oximetry 96 96 Oxygen Delivery Method Room Air Room Air BMI result Body Mass Index 30.2 Labs 03/04/23 07:45 03/04/23 07:45 Imaging Radiology Impressions: ITS Impressions Chest X-Ray 10/20/22 15:45 IMPRESSION: 1. Low lung volumes with bibasilar linear disc atelectasis versus scarring. 2. No airspace consolidation or effusion. Head CT 11/08/22 12:29 IMPRESSION: No acute intracranial hemorrhage or territorial infarction. Stable chronic postoperative changes with gliosis and encephalomalacia in the right frontal and right temporal lobes. Ex vacuo dilatation of the ventricles and diffuse parenchymal volume loss. Right-sided craniotomy changes. Chest X-Ray 11/12/22 10:32 IMPRESSION: Hypoexpanded lungs with bibasilar platelike atelectasis. Brain MRI 11/12/22 13:15 IMPRESSION: 1. No demonstrated acute intracranial abnormalities. 2. Chronic encephalomalacia of the right temporal, right frontal, and left occipital lobes. Small regions of chronic encephalomalacia in the parasagittal aspects of the bilateral parietal lobes. Moderate underlying microangiopathy and generalized cerebral volume loss. Chest X-Ray 11/14/22 15:52 IMPRESSION: Low lung volumes, bibasilar subsegmental atelectasis and slight elevation of the right hemidiaphragm similar to previous exam. Modified Barium Swallow 11/21/22 15:11 IMPRESSION: Laryngeal penetration on several occasions but no laryngeal aspiration. Mild retention of solid food in the valleculae which cleared with subsequent oral administration of water or thin barium. Correlate with speech therapy results. Orbit CT 01/23/23 14:05 IMPRESSION: - No definite significant intraorbital soft tissue findings to assessment is limited on a noncontrast CT of the orbits. No retrobulbar mass lesions and no cellulitic changes appreciated. - There are large fluid levels within the left maxillary sinus and within the right frontal sinus the can be correlated for clinical signs of acute sinusitis. - A peripherally ossified structure extending from the dorsal margin of the right nasolacrimal duct into the right maxillary sinus is stable when compared to examinations dated back to 08/24/2008 favoring a benign etiology. Cervical Spine CT 02/14/23 22:15 IMPRESSION: 1. No acute intracranial abnormality. Stable postsurgical changes with right frontotemporal encephalomalacia, global volume loss, and extraocular dilatation of the right lateral ventricle. 2. No cervical spine fracture or traumatic malalignment. Head CT 02/14/23 22:15 IMPRESSION: 1. No acute intracranial abnormality. Stable postsurgical changes with right frontotemporal encephalomalacia, global volume loss, and extraocular dilatation of the right lateral ventricle. 2. No cervical spine fracture or traumatic malalignment. Hip/Pelvis X-Ray 02/14/23 22:25 IMPRESSION: Moderate degenerative changes of the right hip with loss of superolateral joint space. Similar chronic posttraumatic deformity of the right femoral neck with chronic foreshortening. Status post left total hip arthroplasty in unchanged alignment however the lack of a crosstable lateral view limits assessment for dislocation. No acute fracture or dislocation appreciated on the available views. Foot X-Ray 02/22/23 13:50 IMPRESSION: * Postsurgical changes of arthrodesis first metatarsophalangeal joint. * There is developed large osteophyte from the head of the first metatarsal protruding laterally abutting the head of the second metatarsal. This might be the source of patient's pain. * Underlying degenerative osteoarthritis. Foot X-Ray 02/23/23 14:11 IMPRESSION: Mild degenerative changes MTP, PIP and DIP joints. No visible acute fracture or dislocation seen. Medications Medications Current Medications Acetaminophen (Acetaminophen 325 Mg Tablet) 975 mg PO Q6H PRN PRN Reason: Headache/Pain Mild Scale (1-3) Last Admin: 03/27/23 21:02 Dose: 975 mg Albuterol Sulfate (Albuterol Sulfate 90 Mcg 8 Gm Inhaler) 2 puff INHALE Q6H PRN PRN Reason: Wheezing Alprazolam (Alprazolam 0.5 Mg Tablet) 0.5 mg PO BEDTIME TAZ Last Admin: 03/27/23 21:04 Dose: 0.5 mg Alprazolam (Alprazolam 0.25 Mg Tablet) 0.125 mg PO Q4H PRN PRN Reason: anxiety/restlessness Last Admin: 03/26/23 18:01 Dose: 0.125 mg Amlodipine Besylate (Amlodipine Besylate 5 Mg Tablet) 5 mg PO DAILY TAZ; Protocol Last Admin: 03/27/23 09:23 Dose: 5 mg Artificial Tears (Artificial Tears 15 Ml Drops) 1 drop EYE-BOTH Q2H PRN PRN Reason: Dry Eyes Last Admin: 03/25/23 18:00 Dose: 1 drop Bisacodyl (Bisacodyl 10 Mg Supp.Rect) 10 mg [place] DAILY PRN PRN Reason: Constipation Clotrimazole (Clotrimazole 1 % Cream 15 Gm Tube) 1 appl TOPICAL BID TAZ; Protocol Last Admin: 03/27/23 21:08 Dose: 1 appl Divalproex Sodium (Divalproex Sodium 250 Mg Tablet.Dr) 750 mg PO BEDTIME TAZ Last Admin: 03/27/23 21:03 Dose: 750 mg Guaifenesin/Dextromethorphan (Guaifenesin Dm 100/10/5 Ml 5 Ml Syrup) 5 ml PO Q4H PRN PRN Reason: cough Last Admin: 03/27/23 22:10 Dose: 5 ml Hydrocortisone (Hydrocortisone 1 % Cream 28.35 Gm Tube) 1 appl TOPICAL BID PRN; Protocol PRN Reason: itchy feet Last Admin: 03/27/23 21:08 Dose: 1 appl Hydroxyzine HCl (Hydroxyzine Hcl 25 Mg Tablet) 25 mg PO Q4H PRN PRN Reason: Anxiety Last Admin: 03/26/23 18:02 Dose: 25 mg Ibuprofen (Ibuprofen 600 Mg Tablet) 600 mg PO Q6H PRN PRN Reason: Pain, Moderate(Pain Scale 4-6) Last Admin: 03/27/23 09:24 Dose: 600 mg Latanoprost (Latanoprost 0.005 % Ophth No 2.5 Ml Drops) 1 drop EYE-BOTH BEDTIME TAZ Last Admin: 03/27/23 22:02 Dose: 1 drop Lidocaine (Lidocaine 5 % Ointment 35 Gm) 1 appl TOPICAL Q6H PRN; Protocol PRN Reason: pain r foot Last Admin: 03/27/23 21:09 Dose: 1 appl Magnesium Hydroxide (Milk Of Magnesia 30 Ml Oral.Susp) 30 ml PO BID PRN PRN Reason: constipation, stomach/GI upset Last Admin: 03/21/23 16:10 Dose: 30 ml Nortriptyline HCl (Nortriptyline Hcl 25 Mg Capsule) 50 mg PO BEDTIME TAZ Last Admin: 03/27/23 21:03 Dose: 50 mg Nystatin (Nystatin Powder 15 Gm Bottle) 1 appl TOPICAL BID TAZ; Protocol Last Admin: 03/27/23 21:08 Dose: 1 appl Olanzapine (Olanzapine 2.5 Mg Tablet) 2.5 mg PO Q4H PRN PRN Reason: anxiety/restlessness Last Admin: 03/22/23 16:03 Dose: 2.5 mg Olanzapine (Olanzapine 2.5 Mg Tablet) 2.5 mg PO DAILY TAZ Last Admin: 03/27/23 09:24 Dose: 2.5 mg Olanzapine (Olanzapine 5 Mg Tablet) 5 mg PO BEDTIME TAZ Last Admin: 03/27/23 21:04 Dose: 5 mg Ondansetron HCl (Ondansetron Odt 4 Mg Tab.Rapdis) 4 mg TRANSLINGU Q6H PRN PRN Reason: Nausea and Vomiting Last Admin: 03/20/23 09:13 Dose: 4 mg Polyethylene Glycol (Polyethylene Glycol 3350 17 Gm Powd.Pack) 17 gm PO BID TAZ Last Admin: 03/27/23 22:01 Dose: Not Given Propranolol HCl (Propranolol Hcl 10 Mg Tablet) 10 mg PO TID TAZ; Protocol Last Admin: 03/27/23 21:04 Dose: 10 mg Senna/Docusate Sodium (Sennosides/Docusate Sodium Tablet) 2 tab PO BEDTIME TAZ Last Admin: 03/27/23 21:03 Dose: 2 tab Sodium Chloride (Sodium Chloride 0.65 % Nasal 44 Ml Sprbtl) 1 spray NOSTRIL-B Q1H PRN PRN Reason: Nasal Congestion Last Admin: 02/26/23 21:14 Dose: 1 spray Tamsulosin HCl (Tamsulosin Hcl 0.4 Mg Capsule) 0.4 mg PO DAILY [facility] Last Admin: 03/27/23 09:24 Dose: 0.4 mg Trazodone HCl (Trazodone Hcl 100 Mg Tablet) 200 mg PO BEDTIME [facility] Last Admin: 03/27/23 21:04 Dose: 200 mg Venlafaxine HCl (Venlafaxine Hcl Er 75 Mg Cap.Er.24h) 75 mg PO DAILY [facility] Last Admin: 03/27/23 09:24 Dose: 75 mg Allergies Allergies Allergy/AdvReac Type Severity Reaction Status Date / Time fentanyl [FENTANYL] Allergy Intermediate unknown Verified 04/08/22 07:00 Assessment & Plan Assessment & Plan (1) Major depressive disorder, recurrent severe without psychotic features: Status: Acute Code(s): F33.2 - Major depressive disorder, recurrent severe without psychotic features (2) Cognitive and neurobehavioral dysfunction following brain injury: Status: Acute Code(s): G31.89 - Other specified degenerative diseases of nervous system; F09 - Unspecified mental disorder due to known physiological condition; S06.9X9S - Unspecified intracranial injury with loss of consciousness of unspecified duration, sequela (3) Personality disorder in adult: Status: Acute Code(s): F60.9 - Personality disorder, unspecified Plan ALPRAZOLAM 0.25 B.I.D. 0.5 BEDTIME OLANZAPINE ALSO 3 TIMES A DAY CONTINUE DEPAKOTE START PROPRANOLOL 10 T.I.D. THE PATIENT CONFRONTED REGARDING NEGATIVE TOXIC BEHAVIOR DIFFICULTY COPING AND NEGATIVE COMPLICATIONS TO HIS LIFE IF CONTINUE VERBALLY AGGRESSIVE AND TOXIC BEHAVIOR WITH OTHERS DEVALUATION ENCOURAGE REFLECTION STRESS MANAGEMENT COPING STRATEGIES 03/07 continue same treatment 03/08 continue same treatment 03/09 continue same treatment 03/10/23 Lower alprazolam .125 mg bid hold afternoon olanzapine secondary to slurring oversedation cont propranolol 03/11/23 Pt doing better less sedated struggles to maintain pos attitude 03/13 continue tx. 03/14: stable presentation, no change in mgmt. 03/15: appears sedated. no change in mgmt today. to F/U with attending tomorrow re meds for anxiety. 03/16 continue tx. 03/17 continue tx. 03/18 continue tx. 03/19 continue tx. 03/22 continue tx. 03/23 continue tx. 03/24/2023 Continue treatment plan discharge planning 03/25/2023 Continue plan of care 03/26/2023 Continued discharge planning needs much reassurance 03/27 continue tx. Reason for continued inpatient stay Substantial Risk for: inability to function Time Spent With Patient Time: Total time managing care of this patient today ____ minutes.
[2023-03-28 08:44] VITALS: BP 139/85; PULSE 77; RESP 18; TEMP 36.1; O2SAT 95
[2023-03-28] MEDS: amLODIPine Besylate 5 MG TABLET PO (08:46)
[2023-03-28] MEDS: Propranolol HCL 10 MG TABLET PO ×3 (08:46→21:17)
[2023-03-28] MEDS: OLANZapine 2.5 MG TABLET PO (08:47)
[2023-03-28] MEDS: ALPRAZolam 0.25 MG TABLET 0.125 MG PO (08:47)
[2023-03-28] MEDS: polyethylene glycoL 3350 17 GM POWD.PACK PO (08:47)
[2023-03-28] MEDS: Venlafaxine HCl ER 75 MG CAP.ER.24H PO (08:47)
[2023-03-28] MEDS: Tamsulosin HCL 0.4 MG CAPSULE PO (08:47)
[2023-03-28] MEDS: Artificial Tears 15 ML DROPS 1 DROP EYE-BOTH ×2 (09:19→15:51)
--- NOTE | 2023-03-28 11:51 | HO.PSYCHPN ---
Subjective Subjective Date of Service: 03/28/23 Reason For Visit: Depression hopelessness irritability Interim History: Pt reports the [facility] debacle continues. He says he is anxious about not knowing exactly when the transfer will be done. He is able to cope with this, however. Pt denies SI/HI. Sleeping and eating well. Napping during the day. No behavioral concerns. Review of Systems Review of Systems unremarkable Yes all other systems are reviewed and are negative, Unobtainable due to mental condition and Unobtainable due to mental status Mental Status Exam Mental Status Exam Narrative: Patient Appearance: Fatigued and Appropriate Patient Orientation: Person, Place and Situation Level of Consciousness: Awake Patient Behavior: Guarded, Passive, Fatigued and Distractible Behavior Comments: Mood Description: Withdrawn and Anxious Affect Description: Constricted and Nervous Patient Cognition Impaired: Yes Ability to Follow Directions: Good Speech Pattern: Clear and Slurred Memory Description: Intact Diagnostics Vital Signs (24Hr): Vital Signs - 24 hr 03/27/23 15:36 03/27/23 18:00 03/28/23 08:44 Temperature 97.6 F 96.9 F Pulse Rate 69 67 77 Respiratory Rate 18 18 Blood Pressure 120/63 148/64 H 139/85 Pulse Oximetry 96 95 Oxygen Delivery Method Room Air Room Air BMI result Body Mass Index 30.2 Labs 03/04/23 07:45 03/04/23 07:45 Imaging Radiology Impressions: ITS Impressions Chest X-Ray 10/20/22 15:45 IMPRESSION: 1. Low lung volumes with bibasilar linear disc atelectasis versus scarring. 2. No airspace consolidation or effusion. Head CT 11/08/22 12:29 IMPRESSION: No acute intracranial hemorrhage or territorial infarction. Stable chronic postoperative changes with gliosis and encephalomalacia in the right frontal and right temporal lobes. Ex vacuo dilatation of the ventricles and diffuse parenchymal volume loss. Right-sided craniotomy changes. Chest X-Ray 11/12/22 10:32 IMPRESSION: Hypoexpanded lungs with bibasilar platelike atelectasis. Brain MRI 11/12/22 13:15 IMPRESSION: 1. No demonstrated acute intracranial abnormalities. 2. Chronic encephalomalacia of the right temporal, right frontal, and left occipital lobes. Small regions of chronic encephalomalacia in the parasagittal aspects of the bilateral parietal lobes. Moderate underlying microangiopathy and generalized cerebral volume loss. Chest X-Ray 11/14/22 15:52 IMPRESSION: Low lung volumes, bibasilar subsegmental atelectasis and slight elevation of the right hemidiaphragm similar to previous exam. Modified Barium Swallow 11/21/22 15:11 IMPRESSION: Laryngeal penetration on several occasions but no laryngeal aspiration. Mild retention of solid food in the valleculae which cleared with subsequent oral administration of water or thin barium. Correlate with speech therapy results. Orbit CT 01/23/23 14:05 IMPRESSION: - No definite significant intraorbital soft tissue findings to assessment is limited on a noncontrast CT of the orbits. No retrobulbar mass lesions and no cellulitic changes appreciated. - There are large fluid levels within the left maxillary sinus and within the right frontal sinus the can be correlated for clinical signs of acute sinusitis. - A peripherally ossified structure extending from the dorsal margin of the right nasolacrimal duct into the right maxillary sinus is stable when compared to examinations dated back to 08/24/2008 favoring a benign etiology. Cervical Spine CT 02/14/23 22:15 IMPRESSION: 1. No acute intracranial abnormality. Stable postsurgical changes with right frontotemporal encephalomalacia, global volume loss, and extraocular dilatation of the right lateral ventricle. 2. No cervical spine fracture or traumatic malalignment. Head CT 02/14/23 22:15 IMPRESSION: 1. No acute intracranial abnormality. Stable postsurgical changes with right frontotemporal encephalomalacia, global volume loss, and extraocular dilatation of the right lateral ventricle. 2. No cervical spine fracture or traumatic malalignment. Hip/Pelvis X-Ray 02/14/23 22:25 IMPRESSION: Moderate degenerative changes of the right hip with loss of superolateral joint space. Similar chronic posttraumatic deformity of the right femoral neck with chronic foreshortening. Status post left total hip arthroplasty in unchanged alignment however the lack of a crosstable lateral view limits assessment for dislocation. No acute fracture or dislocation appreciated on the available views. Foot X-Ray 02/22/23 13:50 IMPRESSION: * Postsurgical changes of arthrodesis first metatarsophalangeal joint. * There is developed large osteophyte from the head of the first metatarsal protruding laterally abutting the head of the second metatarsal. This might be the source of patient's pain. * Underlying degenerative osteoarthritis. Foot X-Ray 02/23/23 14:11 IMPRESSION: Mild degenerative changes MTP, PIP and DIP joints. No visible acute fracture or dislocation seen. Medications Medications Current Medications Acetaminophen (Acetaminophen 325 Mg Tablet) 975 mg PO Q6H PRN PRN Reason: Headache/Pain Mild Scale (1-3) Last Admin: 03/27/23 21:02 Dose: 975 mg Albuterol Sulfate (Albuterol Sulfate 90 Mcg 8 Gm Inhaler) 2 puff INHALE Q6H PRN PRN Reason: Wheezing Alprazolam (Alprazolam 0.5 Mg Tablet) 0.5 mg PO BEDTIME TAZ Last Admin: 03/27/23 21:04 Dose: 0.5 mg Alprazolam (Alprazolam 0.25 Mg Tablet) 0.125 mg PO Q4H PRN PRN Reason: anxiety/restlessness Last Admin: 03/28/23 08:47 Dose: 0.125 mg Amlodipine Besylate (Amlodipine Besylate 5 Mg Tablet) 5 mg PO DAILY TAZ; Protocol Last Admin: 03/28/23 08:46 Dose: 5 mg Artificial Tears (Artificial Tears 15 Ml Drops) 1 drop EYE-BOTH Q2H PRN PRN Reason: Dry Eyes Last Admin: 03/28/23 09:19 Dose: 1 drop Bisacodyl (Bisacodyl 10 Mg Supp.Rect) 10 mg [place] DAILY PRN PRN Reason: Constipation Clotrimazole (Clotrimazole 1 % Cream 15 Gm Tube) 1 appl TOPICAL BID TAZ; Protocol Last Admin: 03/28/23 08:49 Dose: Not Given Divalproex Sodium (Divalproex Sodium 250 Mg Tablet.Dr) 750 mg PO BEDTIME TAZ Last Admin: 03/27/23 21:03 Dose: 750 mg Guaifenesin/Dextromethorphan (Guaifenesin Dm 100/10/5 Ml 5 Ml Syrup) 5 ml PO Q4H PRN PRN Reason: cough Last Admin: 03/27/23 22:10 Dose: 5 ml Hydrocortisone (Hydrocortisone 1 % Cream 28.35 Gm Tube) 1 appl TOPICAL BID PRN; Protocol PRN Reason: itchy feet Last Admin: 03/27/23 21:08 Dose: 1 appl Hydroxyzine HCl (Hydroxyzine Hcl 25 Mg Tablet) 25 mg PO Q4H PRN PRN Reason: Anxiety Last Admin: 03/26/23 18:02 Dose: 25 mg Ibuprofen (Ibuprofen 600 Mg Tablet) 600 mg PO Q6H PRN PRN Reason: Pain, Moderate(Pain Scale 4-6) Last Admin: 03/27/23 09:24 Dose: 600 mg Latanoprost (Latanoprost 0.005 % Ophth No 2.5 Ml Drops) 1 drop EYE-BOTH BEDTIME TAZ Last Admin: 03/27/23 22:02 Dose: 1 drop Lidocaine (Lidocaine 5 % Ointment 35 Gm) 1 appl TOPICAL Q6H PRN; Protocol PRN Reason: pain r foot Last Admin: 03/27/23 21:09 Dose: 1 appl Magnesium Hydroxide (Milk Of Magnesia 30 Ml Oral.Susp) 30 ml PO BID PRN PRN Reason: constipation, stomach/GI upset Last Admin: 03/21/23 16:10 Dose: 30 ml Nortriptyline HCl (Nortriptyline Hcl 25 Mg Capsule) 50 mg PO BEDTIME TAZ Last Admin: 03/27/23 21:03 Dose: 50 mg Nystatin (Nystatin Powder 15 Gm Bottle) 1 appl TOPICAL BID TAZ; Protocol Last Admin: 03/28/23 08:49 Dose: Not Given Olanzapine (Olanzapine 2.5 Mg Tablet) 2.5 mg PO Q4H PRN PRN Reason: anxiety/restlessness Last Admin: 03/22/23 16:03 Dose: 2.5 mg Olanzapine (Olanzapine 2.5 Mg Tablet) 2.5 mg PO DAILY TAZ Last Admin: 03/28/23 08:47 Dose: 2.5 mg Olanzapine (Olanzapine 5 Mg Tablet) 5 mg PO BEDTIME TAZ Last Admin: 03/27/23 21:04 Dose: 5 mg Ondansetron HCl (Ondansetron Odt 4 Mg Tab.Rapdis) 4 mg TRANSLINGU Q6H PRN PRN Reason: Nausea and Vomiting Last Admin: 03/20/23 09:13 Dose: 4 mg Polyethylene Glycol (Polyethylene Glycol 3350 17 Gm Powd.Pack) 17 gm PO BID TAZ Last Admin: 03/28/23 08:47 Dose: 17 gm Propranolol HCl (Propranolol Hcl 10 Mg Tablet) 10 mg PO TID TAZ; Protocol Last Admin: 03/28/23 08:46 Dose: 10 mg Senna/Docusate Sodium (Sennosides/Docusate Sodium Tablet) 2 tab PO BEDTIME [facility] Last Admin: 03/27/23 21:03 Dose: 2 tab Sodium Chloride (Sodium Chloride 0.65 % Nasal 44 Ml Sprbtl) 1 spray NOSTRIL-B Q1H PRN PRN Reason: Nasal Congestion Last Admin: 02/26/23 21:14 Dose: 1 spray Tamsulosin HCl (Tamsulosin Hcl 0.4 Mg Capsule) 0.4 mg PO DAILY [facility] Last Admin: 03/28/23 08:47 Dose: 0.4 mg Trazodone HCl (Trazodone Hcl 100 Mg Tablet) 200 mg PO BEDTIME [facility] Last Admin: 03/27/23 21:04 Dose: 200 mg Venlafaxine HCl (Venlafaxine Hcl Er 75 Mg Cap.Er.24h) 75 mg PO DAILY [facility] Last Admin: 03/28/23 08:47 Dose: 75 mg Allergies Allergies Allergy/AdvReac Type Severity Reaction Status Date / Time fentanyl [FENTANYL] Allergy Intermediate unknown Verified 04/08/22 07:00 Assessment & Plan Assessment & Plan (1) Major depressive disorder, recurrent severe without psychotic features: Status: Acute Code(s): F33.2 - Major depressive disorder, recurrent severe without psychotic features (2) Cognitive and neurobehavioral dysfunction following brain injury: Status: Acute Code(s): G31.89 - Other specified degenerative diseases of nervous system; F09 - Unspecified mental disorder due to known physiological condition; S06.9X9S - Unspecified intracranial injury with loss of consciousness of unspecified duration, sequela (3) Personality disorder in adult: Status: Acute Code(s): F60.9 - Personality disorder, unspecified Plan ALPRAZOLAM 0.25 B.I.D. 0.5 BEDTIME OLANZAPINE ALSO 3 TIMES A DAY CONTINUE DEPAKOTE START PROPRANOLOL 10 T.I.D. THE PATIENT CONFRONTED REGARDING NEGATIVE TOXIC BEHAVIOR DIFFICULTY COPING AND NEGATIVE COMPLICATIONS TO HIS LIFE IF CONTINUE VERBALLY AGGRESSIVE AND TOXIC BEHAVIOR WITH OTHERS DEVALUATION ENCOURAGE REFLECTION STRESS MANAGEMENT COPING STRATEGIES 03/07 continue same treatment 03/08 continue same treatment 03/09 continue same treatment 03/10/23 Lower alprazolam .125 mg bid hold afternoon olanzapine secondary to slurring oversedation cont propranolol 03/11/23 Pt doing better less sedated struggles to maintain pos attitude 03/13 continue tx. 03/14: stable presentation, no change in mgmt. 03/15: appears sedated. no change in mgmt today. to F/U with attending tomorrow re meds for anxiety. 03/16 continue tx. 03/17 continue tx. 03/18 continue tx. 03/19 continue tx. 03/22 continue tx. 03/23 continue tx. 03/24/2023 Continue treatment plan discharge planning 03/25/2023 Continue plan of care 03/26/2023 Continued discharge planning needs much reassurance 03/27 continue tx. 03/28: Continue treatment plan. Reason for continued inpatient stay Substantial Risk for: inability to function and rapid decompensation Time Spent With Patient Time: Total time managing care of this patient today ____ minutes.
[2023-03-28] MEDS: Acetaminophen 325 MG TABLET 975 MG PO (14:10)
[2023-03-28 14:12] VITALS: BP 136/69; PULSE 71
[2023-03-28] MEDS: Ibuprofen 600 MG TABLET PO (15:55)
[2023-03-28 18:00] VITALS: BP 121/76; PULSE 68; RESP 18; TEMP 36.3; O2SAT 96
[2023-03-28] MEDS: ALPRAZolam 0.5 MG TABLET PO (21:17)
[2023-03-28] MEDS: traZODone HCL 100 MG TABLET 200 MG PO (21:17)
[2023-03-28] MEDS: Nortriptyline HCl 25 MG CAPSULE 50 MG PO (21:17)
[2023-03-28] MEDS: OLANZapine 5 MG TABLET PO (21:17)
[2023-03-28] MEDS: Sennosides/Docusate Sodium TABLET 2 TAB PO (21:17)
[2023-03-28] MEDS: Divalproex Sodium 250 MG TABLET.DR 750 MG PO (21:18)
[2023-03-28] MEDS: Hydrocortisone 1 % Cream 28.35 GM TUBE 1 APPL TOPICAL (21:23)
[2023-03-28] MEDS: Clotrimazole 1 % Cream 15 GM TUBE 1 APPL TOPICAL (21:25)
[2023-03-28] MEDS: Latanoprost 0.005 % Ophth Sol 2.5 ML DROPS 1 DROP EYE-BOTH (21:32)
[2023-03-29] MEDS: hydrOXYzine HCL 25 MG TABLET PO ×2 (01:27→20:25)
[2023-03-29] MEDS: Acetaminophen 325 MG TABLET 975 MG PO (03:03)
[2023-03-29 07:30] VITALS: BP 143/93; PULSE 77; RESP 18; TEMP 35.7; O2SAT 98
[2023-03-29] MEDS: polyethylene glycoL 3350 17 GM POWD.PACK PO (08:51)
[2023-03-29] MEDS: Tamsulosin HCL 0.4 MG CAPSULE PO (08:51)
[2023-03-29] MEDS: Venlafaxine HCl ER 75 MG CAP.ER.24H PO (08:51)
[2023-03-29] MEDS: OLANZapine 2.5 MG TABLET PO (08:51)
[2023-03-29] MEDS: Propranolol HCL 10 MG TABLET PO ×3 (08:51→20:13)
[2023-03-29] MEDS: amLODIPine Besylate 5 MG TABLET PO (08:51)
[2023-03-29] MEDS: ALPRAZolam 0.25 MG TABLET 0.125 MG PO (08:55)
--- NOTE | 2023-03-29 10:30 | HO.PSYCHPN ---
Subjective Subjective Date of Service: 03/29/23 Reason For Visit: Depression hopelessness irritability Interim History: Pt reports he is doing OK other than his anxiety about not knowing the exact day he would be able to go to the . He is able to cope with this, however. Pt denies SI/HI. Sleeping and eating well. Napping during the day. No behavioral concerns. Review of Systems Review of Systems unremarkable Yes all other systems are reviewed and are negative, Unobtainable due to mental condition and Unobtainable due to mental status Mental Status Exam Mental Status Exam Narrative: Patient Appearance: Fatigued and Appropriate Patient Orientation: Person, Place and Situation Level of Consciousness: Awake Patient Behavior: Guarded, Passive, Fatigued and Distractible Behavior Comments: Mood Description: Withdrawn and Anxious Affect Description: Constricted and Nervous Patient Cognition Impaired: Yes Ability to Follow Directions: Good Speech Pattern: Clear and Slurred Memory Description: Intact Diagnostics Vital Signs (24Hr): Vital Signs - 24 hr 03/28/23 14:12 03/28/23 18:00 03/29/23 07:30 Temperature 97.4 F 96.2 F L Pulse Rate 71 68 77 Respiratory Rate 18 18 Blood Pressure 136/69 121/76 143/93 H Pulse Oximetry 96 98 Oxygen Delivery Method Room Air Room Air BMI result Body Mass Index 30.2 Labs 03/04/23 07:45 03/04/23 07:45 Imaging Radiology Impressions: ITS Impressions Chest X-Ray 10/20/22 15:45 IMPRESSION: 1. Low lung volumes with bibasilar linear disc atelectasis versus scarring. 2. No airspace consolidation or effusion. Head CT 11/08/22 12:29 IMPRESSION: No acute intracranial hemorrhage or territorial infarction. Stable chronic postoperative changes with gliosis and encephalomalacia in the right frontal and right temporal lobes. Ex vacuo dilatation of the ventricles and diffuse parenchymal volume loss. Right-sided craniotomy changes. Chest X-Ray 11/12/22 10:32 IMPRESSION: Hypoexpanded lungs with bibasilar platelike atelectasis. Brain MRI 11/12/22 13:15 IMPRESSION: 1. No demonstrated acute intracranial abnormalities. 2. Chronic encephalomalacia of the right temporal, right frontal, and left occipital lobes. Small regions of chronic encephalomalacia in the parasagittal aspects of the bilateral parietal lobes. Moderate underlying microangiopathy and generalized cerebral volume loss. Chest X-Ray 11/14/22 15:52 IMPRESSION: Low lung volumes, bibasilar subsegmental atelectasis and slight elevation of the right hemidiaphragm similar to previous exam. Modified Barium Swallow 11/21/22 15:11 IMPRESSION: Laryngeal penetration on several occasions but no laryngeal aspiration. Mild retention of solid food in the valleculae which cleared with subsequent oral administration of water or thin barium. Correlate with speech therapy results. Orbit CT 01/23/23 14:05 IMPRESSION: - No definite significant intraorbital soft tissue findings to assessment is limited on a noncontrast CT of the orbits. No retrobulbar mass lesions and no cellulitic changes appreciated. - There are large fluid levels within the left maxillary sinus and within the right frontal sinus the can be correlated for clinical signs of acute sinusitis. - A peripherally ossified structure extending from the dorsal margin of the right nasolacrimal duct into the right maxillary sinus is stable when compared to examinations dated back to 08/24/2008 favoring a benign etiology. Cervical Spine CT 02/14/23 22:15 IMPRESSION: 1. No acute intracranial abnormality. Stable postsurgical changes with right frontotemporal encephalomalacia, global volume loss, and extraocular dilatation of the right lateral ventricle. 2. No cervical spine fracture or traumatic malalignment. Head CT 02/14/23 22:15 IMPRESSION: 1. No acute intracranial abnormality. Stable postsurgical changes with right frontotemporal encephalomalacia, global volume loss, and extraocular dilatation of the right lateral ventricle. 2. No cervical spine fracture or traumatic malalignment. Hip/Pelvis X-Ray 02/14/23 22:25 IMPRESSION: Moderate degenerative changes of the right hip with loss of superolateral joint space. Similar chronic posttraumatic deformity of the right femoral neck with chronic foreshortening. Status post left total hip arthroplasty in unchanged alignment however the lack of a crosstable lateral view limits assessment for dislocation. No acute fracture or dislocation appreciated on the available views. Foot X-Ray 02/22/23 13:50 IMPRESSION: * Postsurgical changes of arthrodesis first metatarsophalangeal joint. * There is developed large osteophyte from the head of the first metatarsal protruding laterally abutting the head of the second metatarsal. This might be the source of patient's pain. * Underlying degenerative osteoarthritis. Foot X-Ray 02/23/23 14:11 IMPRESSION: Mild degenerative changes MTP, PIP and DIP joints. No visible acute fracture or dislocation seen. Medications Medications Current Medications Acetaminophen (Acetaminophen 325 Mg Tablet) 975 mg PO Q6H PRN PRN Reason: Headache/Pain Mild Scale (1-3) Last Admin: 03/29/23 03:03 Dose: 975 mg Albuterol Sulfate (Albuterol Sulfate 90 Mcg 8 Gm Inhaler) 2 puff INHALE Q6H PRN PRN Reason: Wheezing Alprazolam (Alprazolam 0.5 Mg Tablet) 0.5 mg PO BEDTIME TAZ Last Admin: 03/28/23 21:17 Dose: 0.5 mg Alprazolam (Alprazolam 0.25 Mg Tablet) 0.125 mg PO Q4H PRN PRN Reason: anxiety/restlessness Last Admin: 03/29/23 08:55 Dose: 0.125 mg Amlodipine Besylate (Amlodipine Besylate 5 Mg Tablet) 5 mg PO DAILY TAZ; Protocol Last Admin: 03/29/23 08:51 Dose: 5 mg Artificial Tears (Artificial Tears 15 Ml Drops) 1 drop EYE-BOTH Q2H PRN PRN Reason: Dry Eyes Last Admin: 03/28/23 15:51 Dose: 1 drop Bisacodyl (Bisacodyl 10 Mg Supp.Rect) 10 mg PA DAILY PRN PRN Reason: Constipation Clotrimazole (Clotrimazole 1 % Cream 15 Gm Tube) 1 appl TOPICAL BID TAZ; Protocol Last Admin: 03/29/23 09:04 Dose: Not Given Divalproex Sodium (Divalproex Sodium 250 Mg Tablet.Dr) 750 mg PO BEDTIME TAZ Last Admin: 03/28/23 21:18 Dose: 750 mg Guaifenesin/Dextromethorphan (Guaifenesin Dm 100/10/5 Ml 5 Ml Syrup) 5 ml PO Q4H PRN PRN Reason: cough Last Admin: 03/27/23 22:10 Dose: 5 ml Hydrocortisone (Hydrocortisone 1 % Cream 28.35 Gm Tube) 1 appl TOPICAL BID PRN; Protocol PRN Reason: itchy feet Last Admin: 03/28/23 21:23 Dose: 1 appl Hydroxyzine HCl (Hydroxyzine Hcl 25 Mg Tablet) 25 mg PO Q4H PRN PRN Reason: Anxiety Last Admin: 03/29/23 01:27 Dose: 25 mg Ibuprofen (Ibuprofen 600 Mg Tablet) 600 mg PO Q6H PRN PRN Reason: Pain, Moderate(Pain Scale 4-6) Last Admin: 03/28/23 15:55 Dose: 600 mg Latanoprost (Latanoprost 0.005 % Ophth No 2.5 Ml Drops) 1 drop EYE-BOTH BEDTIME TAZ Last Admin: 03/28/23 21:32 Dose: 1 drop Lidocaine (Lidocaine 5 % Ointment 35 Gm) 1 appl TOPICAL Q6H PRN; Protocol PRN Reason: pain r foot Last Admin: 03/27/23 21:09 Dose: 1 appl Magnesium Hydroxide (Milk Of Magnesia 30 Ml Oral.Susp) 30 ml PO BID PRN PRN Reason: constipation, stomach/GI upset Last Admin: 03/21/23 16:10 Dose: 30 ml Nortriptyline HCl (Nortriptyline Hcl 25 Mg Capsule) 50 mg PO BEDTIME TAZ Last Admin: 03/28/23 21:17 Dose: 50 mg Nystatin (Nystatin Powder 15 Gm Bottle) 1 appl TOPICAL BID TAZ; Protocol Last Admin: 03/29/23 09:04 Dose: Not Given Olanzapine (Olanzapine 2.5 Mg Tablet) 2.5 mg PO Q4H PRN PRN Reason: anxiety/restlessness Last Admin: 03/22/23 16:03 Dose: 2.5 mg Olanzapine (Olanzapine 2.5 Mg Tablet) 2.5 mg PO DAILY TAZ Last Admin: 03/29/23 08:51 Dose: 2.5 mg Olanzapine (Olanzapine 5 Mg Tablet) 5 mg PO BEDTIME TAZ Last Admin: 03/28/23 21:17 Dose: 5 mg Ondansetron HCl (Ondansetron Odt 4 Mg Tab.Rapdis) 4 mg TRANSLINGU Q6H PRN PRN Reason: Nausea and Vomiting Last Admin: 03/20/23 09:13 Dose: 4 mg Polyethylene Glycol (Polyethylene Glycol 3350 17 Gm Powd.Pack) 17 gm PO BID TAZ Last Admin: 03/29/23 08:51 Dose: 17 gm Propranolol HCl (Propranolol Hcl 10 Mg Tablet) 10 mg PO TID TAZ; Protocol Last Admin: 03/29/23 08:51 Dose: 10 mg Senna/Docusate Sodium (Sennosides/Docusate Sodium Tablet) 2 tab PO BEDTIME [facility] Last Admin: 03/28/23 21:17 Dose: 2 tab Sodium Chloride (Sodium Chloride 0.65 % Nasal 44 Ml Sprbtl) 1 spray NOSTRIL-B Q1H PRN PRN Reason: Nasal Congestion Last Admin: 02/26/23 21:14 Dose: 1 spray Tamsulosin HCl (Tamsulosin Hcl 0.4 Mg Capsule) 0.4 mg PO DAILY [facility] Last Admin: 03/29/23 08:51 Dose: 0.4 mg Trazodone HCl (Trazodone Hcl 100 Mg Tablet) 200 mg PO BEDTIME [facility] Last Admin: 03/28/23 21:17 Dose: 200 mg Venlafaxine HCl (Venlafaxine Hcl Er 75 Mg Cap.Er.24h) 75 mg PO DAILY [facility] Last Admin: 03/29/23 08:51 Dose: 75 mg Allergies Allergies Allergy/AdvReac Type Severity Reaction Status Date / Time fentanyl [FENTANYL] Allergy Intermediate unknown Verified 04/08/22 07:00 Assessment & Plan Assessment & Plan (1) Major depressive disorder, recurrent severe without psychotic features: Status: Acute Code(s): F33.2 - Major depressive disorder, recurrent severe without psychotic features (2) Cognitive and neurobehavioral dysfunction following brain injury: Status: Acute Code(s): G31.89 - Other specified degenerative diseases of nervous system; F09 - Unspecified mental disorder due to known physiological condition; S06.9X9S - Unspecified intracranial injury with loss of consciousness of unspecified duration, sequela (3) Personality disorder in adult: Status: Acute Code(s): F60.9 - Personality disorder, unspecified Plan ALPRAZOLAM 0.25 B.I.D. 0.5 BEDTIME OLANZAPINE ALSO 3 TIMES A DAY CONTINUE DEPAKOTE START PROPRANOLOL 10 T.I.D. THE PATIENT CONFRONTED REGARDING NEGATIVE TOXIC BEHAVIOR DIFFICULTY COPING AND NEGATIVE COMPLICATIONS TO HIS LIFE IF CONTINUE VERBALLY AGGRESSIVE AND TOXIC BEHAVIOR WITH OTHERS DEVALUATION ENCOURAGE REFLECTION STRESS MANAGEMENT COPING STRATEGIES 03/07 continue same treatment 03/08 continue same treatment 03/09 continue same treatment 03/10/23 Lower alprazolam .125 mg bid hold afternoon olanzapine secondary to slurring oversedation cont propranolol 03/11/23 Pt doing better less sedated struggles to maintain pos attitude 03/13 continue tx. 03/14: stable presentation, no change in mgmt. 03/15: appears sedated. no change in mgmt today. to F/U with attending tomorrow re meds for anxiety. 03/16 continue tx. 03/17 continue tx. 03/18 continue tx. 03/19 continue tx. 03/22 continue tx. 03/23 continue tx. 03/24/2023 Continue treatment plan discharge planning 03/25/2023 Continue plan of care 03/26/2023 Continued discharge planning needs much reassurance 03/27 continue tx. 03/28: Continue treatment plan. 03/29: Continue current treatment plan Reason for continued inpatient stay Substantial Risk for: harm to self, inability to function and rapid decompensation Time Spent With Patient Time: Total time managing care of this patient today ____ minutes.
[2023-03-29] MEDS: Artificial Tears 15 ML DROPS 1 DROP EYE-BOTH (15:33)
[2023-03-29 18:00] VITALS: BP 132/69; PULSE 71; RESP 18; TEMP 36.1; O2SAT 95
[2023-03-29] MEDS: Divalproex Sodium 250 MG TABLET.DR 750 MG PO (20:12)
[2023-03-29] MEDS: OLANZapine 5 MG TABLET PO (20:13)
[2023-03-29] MEDS: traZODone HCL 100 MG TABLET 200 MG PO (20:13)
[2023-03-29] MEDS: Sennosides/Docusate Sodium TABLET 2 TAB PO (20:13)
[2023-03-29] MEDS: Nortriptyline HCl 25 MG CAPSULE 50 MG PO (20:13)
[2023-03-29] MEDS: Latanoprost 0.005 % Ophth Sol 2.5 ML DROPS 1 DROP EYE-BOTH (20:16)
[2023-03-29] MEDS: Nystatin Powder 15 GM BOTTLE 1 APPL TOPICAL (20:18)
[2023-03-29] MEDS: Clotrimazole 1 % Cream 15 GM TUBE 1 APPL TOPICAL (20:18)
[2023-03-29] MEDS: Lidocaine 5 % Ointment 35 GM 1 APPL TOPICAL (20:30)
[2023-03-30] MEDS: OLANZapine 2.5 MG TABLET PO ×2 (00:02→08:46)
[2023-03-30] MEDS: hydrOXYzine HCL 25 MG TABLET PO ×2 (02:57→21:44)
[2023-03-30] MEDS: Acetaminophen 325 MG TABLET 975 MG PO ×3 (02:59→21:06)
[2023-03-30 08:20] VITALS: BP 146/86; PULSE 81; RESP 20; TEMP 36.3; O2SAT 96
[2023-03-30] MEDS: amLODIPine Besylate 5 MG TABLET PO (08:45)
[2023-03-30] MEDS: Tamsulosin HCL 0.4 MG CAPSULE PO (08:45)
[2023-03-30] MEDS: Venlafaxine HCl ER 75 MG CAP.ER.24H PO (08:45)
[2023-03-30] MEDS: polyethylene glycoL 3350 17 GM POWD.PACK PO (08:46)
[2023-03-30] MEDS: Propranolol HCL 10 MG TABLET PO ×2 (08:46→15:25)
[2023-03-30] MEDS: Artificial Tears 15 ML DROPS 1 DROP EYE-BOTH (12:13)
[2023-03-30] MEDS: Ibuprofen 600 MG TABLET PO (12:13)
[2023-03-30] MEDS: ALPRAZolam 0.25 MG TABLET 0.125 MG PO ×2 (12:15→18:17)
[2023-03-30 18:00] VITALS: BP 132/78; PULSE 58; RESP 18; TEMP 36.5; O2SAT 95
[2023-03-30] MEDS: Divalproex Sodium 250 MG TABLET.DR 750 MG PO (21:04)
[2023-03-30] MEDS: ALPRAZolam 0.5 MG TABLET PO (21:04)
[2023-03-30] MEDS: traZODone HCL 100 MG TABLET 200 MG PO (21:05)
[2023-03-30] MEDS: Sennosides/Docusate Sodium TABLET 2 TAB PO (21:05)
[2023-03-30] MEDS: OLANZapine 5 MG TABLET PO (21:05)
[2023-03-30] MEDS: Nortriptyline HCl 25 MG CAPSULE 50 MG PO (21:06)
[2023-03-30] MEDS: Clotrimazole 1 % Cream 15 GM TUBE 1 APPL TOPICAL (21:10)
[2023-03-30] MEDS: Latanoprost 0.005 % Ophth Sol 2.5 ML DROPS 1 DROP EYE-BOTH (21:10)
[2023-03-30] MEDS: Hydrocortisone 1 % Cream 28.35 GM TUBE 1 APPL TOPICAL (21:11)
[2023-03-30] MEDS: Lidocaine 5 % Ointment 35 GM 1 APPL TOPICAL (21:11)
[2023-03-30] MEDS: Nystatin Powder 15 GM BOTTLE 1 APPL TOPICAL (21:12)
[2023-03-31 07:30] VITALS: BP 145/91; PULSE 84; RESP 20; TEMP 36.3; O2SAT 97
--- NOTE | 2023-03-31 08:32 | HO.PSYCHPN ---
Subjective Subjective Date of Service: 03/30/23 Reason For Visit: Depression hopelessness irritability Subjective Notes: Conditional Voluntary Interim History: Pt reports feeling very tired of being here. He reports he is losing his patience and can't wait to be discharged. He denies SI/HI. Pt sleeping and eating well. No behavioral concerns. Pt taking medications. Medication Compliance: Yes Mental Status Exam Mental Status Exam Narrative: Patient Appearance: Well Grooomed and Appropriate Patient Orientation: Person, Place and Situation Level of Consciousness: Awake and Appropriate Patient Behavior: Guarded, Passive, Fatigued and Distractible Behavior Comments: Mood Description: Withdrawn and Anxious Affect Description: Constricted and Nervous Patient Cognition Impaired: Yes Ability to Follow Directions: Good Speech Pattern: Clear and Slurred Memory Description: Intact Diagnostics Vital Signs (24Hr): Vital Signs - 24 hr 03/30/23 18:00 03/31/23 07:30 Temperature 97.7 F 97.4 F Pulse Rate 58 84 Respiratory Rate 18 20 Blood Pressure 132/78 145/91 H Pulse Oximetry 95 97 Oxygen Delivery Method Room Air Room Air BMI result Body Mass Index 30.2 Labs 03/04/23 07:45 03/04/23 07:45 Imaging Radiology Impressions: ITS Impressions Chest X-Ray 10/20/22 15:45 IMPRESSION: 1. Low lung volumes with bibasilar linear disc atelectasis versus scarring. 2. No airspace consolidation or effusion. Head CT 11/08/22 12:29 IMPRESSION: No acute intracranial hemorrhage or territorial infarction. Stable chronic postoperative changes with gliosis and encephalomalacia in the right frontal and right temporal lobes. Ex vacuo dilatation of the ventricles and diffuse parenchymal volume loss. Right-sided craniotomy changes. Chest X-Ray 11/12/22 10:32 IMPRESSION: Hypoexpanded lungs with bibasilar platelike atelectasis. Brain MRI 11/12/22 13:15 IMPRESSION: 1. No demonstrated acute intracranial abnormalities. 2. Chronic encephalomalacia of the right temporal, right frontal, and left occipital lobes. Small regions of chronic encephalomalacia in the parasagittal aspects of the bilateral parietal lobes. Moderate underlying microangiopathy and generalized cerebral volume loss. Chest X-Ray 11/14/22 15:52 IMPRESSION: Low lung volumes, bibasilar subsegmental atelectasis and slight elevation of the right hemidiaphragm similar to previous exam. Modified Barium Swallow 11/21/22 15:11 IMPRESSION: Laryngeal penetration on several occasions but no laryngeal aspiration. Mild retention of solid food in the valleculae which cleared with subsequent oral administration of water or thin barium. Correlate with speech therapy results. Orbit CT 01/23/23 14:05 IMPRESSION: - No definite significant intraorbital soft tissue findings to assessment is limited on a noncontrast CT of the orbits. No retrobulbar mass lesions and no cellulitic changes appreciated. - There are large fluid levels within the left maxillary sinus and within the right frontal sinus the can be correlated for clinical signs of acute sinusitis. - A peripherally ossified structure extending from the dorsal margin of the right nasolacrimal duct into the right maxillary sinus is stable when compared to examinations dated back to 08/24/2008 favoring a benign etiology. Cervical Spine CT 02/14/23 22:15 IMPRESSION: 1. No acute intracranial abnormality. Stable postsurgical changes with right frontotemporal encephalomalacia, global volume loss, and extraocular dilatation of the right lateral ventricle. 2. No cervical spine fracture or traumatic malalignment. Head CT 02/14/23 22:15 IMPRESSION: 1. No acute intracranial abnormality. Stable postsurgical changes with right frontotemporal encephalomalacia, global volume loss, and extraocular dilatation of the right lateral ventricle. 2. No cervical spine fracture or traumatic malalignment. Hip/Pelvis X-Ray 02/14/23 22:25 IMPRESSION: Moderate degenerative changes of the right hip with loss of superolateral joint space. Similar chronic posttraumatic deformity of the right femoral neck with chronic foreshortening. Status post left total hip arthroplasty in unchanged alignment however the lack of a crosstable lateral view limits assessment for dislocation. No acute fracture or dislocation appreciated on the available views. Foot X-Ray 02/22/23 13:50 IMPRESSION: * Postsurgical changes of arthrodesis first metatarsophalangeal joint. * There is developed large osteophyte from the head of the first metatarsal protruding laterally abutting the head of the second metatarsal. This might be the source of patient's pain. * Underlying degenerative osteoarthritis. Foot X-Ray 02/23/23 14:11 IMPRESSION: Mild degenerative changes MTP, PIP and DIP joints. No visible acute fracture or dislocation seen. Medications Medications Current Medications Acetaminophen (Acetaminophen 325 Mg Tablet) 975 mg PO Q6H PRN PRN Reason: Headache/Pain Mild Scale (1-3) Last Admin: 03/30/23 21:06 Dose: 975 mg Albuterol Sulfate (Albuterol Sulfate 90 Mcg 8 Gm Inhaler) 2 puff INHALE Q6H PRN PRN Reason: Wheezing Alprazolam (Alprazolam 0.5 Mg Tablet) 0.5 mg PO BEDTIME TAZ Last Admin: 03/30/23 21:04 Dose: 0.5 mg Alprazolam (Alprazolam 0.25 Mg Tablet) 0.125 mg PO QID PRN PRN Reason: Anxiety Last Admin: 03/30/23 18:17 Dose: 0.125 mg Amlodipine Besylate (Amlodipine Besylate 5 Mg Tablet) 5 mg PO DAILY TAZ; Protocol Last Admin: 03/30/23 08:45 Dose: 5 mg Artificial Tears (Artificial Tears 15 Ml Drops) 1 drop EYE-BOTH Q2H PRN PRN Reason: Dry Eyes Last Admin: 03/30/23 12:13 Dose: 1 drop Bisacodyl (Bisacodyl 10 Mg Supp.Rect) 10 mg SC DAILY PRN PRN Reason: Constipation Clotrimazole (Clotrimazole 1 % Cream 15 Gm Tube) 1 appl TOPICAL BID TAZ; Protocol Last Admin: 03/30/23 21:10 Dose: 1 appl Divalproex Sodium (Divalproex Sodium 250 Mg Tablet.Dr) 750 mg PO BEDTIME TAZ Last Admin: 03/30/23 21:04 Dose: 750 mg Guaifenesin/Dextromethorphan (Guaifenesin Dm 100/10/5 Ml 5 Ml Syrup) 5 ml PO Q4H PRN PRN Reason: cough Last Admin: 03/27/23 22:10 Dose: 5 ml Hydrocortisone (Hydrocortisone 1 % Cream 28.35 Gm Tube) 1 appl TOPICAL BID PRN; Protocol PRN Reason: itchy feet Last Admin: 03/30/23 21:11 Dose: 1 appl Hydroxyzine HCl (Hydroxyzine Hcl 25 Mg Tablet) 25 mg PO Q4H PRN PRN Reason: Anxiety Last Admin: 03/30/23 21:44 Dose: 25 mg Ibuprofen (Ibuprofen 600 Mg Tablet) 600 mg PO Q6H PRN PRN Reason: Pain, Moderate(Pain Scale 4-6) Last Admin: 03/30/23 12:13 Dose: 600 mg Latanoprost (Latanoprost 0.005 % Ophth No 2.5 Ml Drops) 1 drop EYE-BOTH BEDTIME TAZ Last Admin: 03/30/23 21:10 Dose: 1 drop Lidocaine (Lidocaine 5 % Ointment 35 Gm) 1 appl TOPICAL Q6H PRN; Protocol PRN Reason: pain r foot Last Admin: 03/30/23 21:11 Dose: 1 appl Magnesium Hydroxide (Milk Of Magnesia 30 Ml Oral.Susp) 30 ml PO BID PRN PRN Reason: constipation, stomach/GI upset Last Admin: 03/21/23 16:10 Dose: 30 ml Nortriptyline HCl (Nortriptyline Hcl 25 Mg Capsule) 50 mg PO BEDTIME TAZ Last Admin: 03/30/23 21:06 Dose: 50 mg Nystatin (Nystatin Powder 15 Gm Bottle) 1 appl TOPICAL BID TAZ; Protocol Last Admin: 03/30/23 21:12 Dose: 1 appl Olanzapine (Olanzapine 2.5 Mg Tablet) 2.5 mg PO Q4H PRN PRN Reason: anxiety/restlessness Last Admin: 03/30/23 00:02 Dose: 2.5 mg Olanzapine (Olanzapine 2.5 Mg Tablet) 2.5 mg PO DAILY TAZ Last Admin: 03/30/23 08:46 Dose: 2.5 mg Olanzapine (Olanzapine 5 Mg Tablet) 5 mg PO BEDTIME TAZ Last Admin: 03/30/23 21:05 Dose: 5 mg Ondansetron HCl (Ondansetron Odt 4 Mg Tab.Rapdis) 4 mg TRANSLINGU Q6H PRN PRN Reason: Nausea and Vomiting Last Admin: 03/20/23 09:13 Dose: 4 mg Polyethylene Glycol (Polyethylene Glycol 3350 17 Gm Powd.Pack) 17 gm PO BID TAZ Last Admin: 03/30/23 21:31 Dose: Not Given Propranolol HCl (Propranolol Hcl 10 Mg Tablet) 10 mg PO TID TAZ; Protocol Last Admin: 03/30/23 21:32 Dose: Not Given Senna/Docusate Sodium (Sennosides/Docusate Sodium Tablet) 2 tab PO BEDTIME TAZ Last Admin: 03/30/23 21:05 Dose: 1 tab Sodium Chloride (Sodium Chloride 0.65 % Nasal 44 Ml Sprbtl) 1 spray NOSTRIL-B Q1H PRN PRN Reason: Nasal Congestion Last Admin: 02/26/23 21:14 Dose: 1 spray Tamsulosin HCl (Tamsulosin Hcl 0.4 Mg Capsule) 0.4 mg PO DAILY [facility] Last Admin: 03/30/23 08:45 Dose: 0.4 mg Trazodone HCl (Trazodone Hcl 100 Mg Tablet) 200 mg PO BEDTIME [facility] Last Admin: 03/30/23 21:05 Dose: 200 mg Venlafaxine HCl (Venlafaxine Hcl Er 75 Mg Cap.Er.24h) 75 mg PO DAILY [facility] Last Admin: 03/30/23 08:45 Dose: 75 mg Allergies Allergies Allergy/AdvReac Type Severity Reaction Status Date / Time fentanyl [FENTANYL] Allergy Intermediate unknown Verified 04/08/22 07:00 Assessment & Plan Assessment & Plan (1) Major depressive disorder, recurrent severe without psychotic features: Status: Acute Code(s): F33.2 - Major depressive disorder, recurrent severe without psychotic features (2) Cognitive and neurobehavioral dysfunction following brain injury: Status: Acute Code(s): G31.89 - Other specified degenerative diseases of nervous system; F09 - Unspecified mental disorder due to known physiological condition; S06.9X9S - Unspecified intracranial injury with loss of consciousness of unspecified duration, sequela (3) Personality disorder in adult: Status: Acute Code(s): F60.9 - Personality disorder, unspecified Plan ALPRAZOLAM 0.25 B.I.D. 0.5 BEDTIME OLANZAPINE ALSO 3 TIMES A DAY CONTINUE DEPAKOTE START PROPRANOLOL 10 T.I.D. THE PATIENT CONFRONTED REGARDING NEGATIVE TOXIC BEHAVIOR DIFFICULTY COPING AND NEGATIVE COMPLICATIONS TO HIS LIFE IF CONTINUE VERBALLY AGGRESSIVE AND TOXIC BEHAVIOR WITH OTHERS DEVALUATION ENCOURAGE REFLECTION STRESS MANAGEMENT COPING STRATEGIES 03/07 continue same treatment 03/08 continue same treatment 03/09 continue same treatment 03/10/23 Lower alprazolam .125 mg bid hold afternoon olanzapine secondary to slurring oversedation cont propranolol 03/11/23 Pt doing better less sedated struggles to maintain pos attitude 03/13 continue tx. 03/14: stable presentation, no change in mgmt. 03/15: appears sedated. no change in mgmt today. to F/U with attending tomorrow re meds for anxiety. 03/16 continue tx. 03/17 continue tx. 03/18 continue tx. 03/19 continue tx. 03/22 continue tx. 03/23 continue tx. 03/24/2023 Continue treatment plan discharge planning 03/25/2023 Continue plan of care 03/26/2023 Continued discharge planning needs much reassurance 03/27 continue tx. 03/28: Continue treatment plan. 03/29: Continue current treatment plan 03/30 continue tx. Reason for continued inpatient stay Substantial Risk for: stable for discharge Time Spent With Patient Time: Total time managing care of this patient today ____ minutes.
[2023-03-31] MEDS: Acetaminophen 325 MG TABLET 975 MG PO ×2 (09:03→20:54)
[2023-03-31] MEDS: ALPRAZolam 0.25 MG TABLET 0.125 MG PO ×2 (09:03→15:12)
[2023-03-31] MEDS: Propranolol HCL 10 MG TABLET PO ×3 (09:04→20:49)
[2023-03-31] MEDS: OLANZapine 2.5 MG TABLET PO (09:04)
[2023-03-31] MEDS: Tamsulosin HCL 0.4 MG CAPSULE PO (09:04)
[2023-03-31] MEDS: Venlafaxine HCl ER 75 MG CAP.ER.24H PO (09:04)
[2023-03-31] MEDS: amLODIPine Besylate 5 MG TABLET PO (09:04)
[2023-03-31] MEDS: polyethylene glycoL 3350 17 GM POWD.PACK PO (09:07)
[2023-03-31] MEDS: Artificial Tears 15 ML DROPS 1 DROP EYE-BOTH ×2 (10:45→15:13)
[2023-03-31 15:10] VITALS: BP 137/76; PULSE 72
[2023-03-31] MEDS: Ibuprofen 600 MG TABLET PO (15:13)
--- NOTE | 2023-03-31 15:28 | HO.PSYCHPN ---
Subjective Subjective Date of Service: 03/31/23 Reason For Visit: Depression hopelessness irritability Subjective Notes: Conditional Voluntary Interim History: Pt reports trying to cope and be patient about transition to new . Pt does brighten up when thinking about things he would like to do when discharged. He denies SI/HI. Pt sleeping and eating well. no behavioral concerns. He denies any physical concerns as well. Review of Systems Review of Systems unremarkable Yes all other systems are reviewed and are negative, Unobtainable due to mental condition and Unobtainable due to mental status Mental Status Exam Mental Status Exam Narrative: Patient Appearance: Well Grooomed and Appropriate Patient Orientation: Person, Place and Situation Level of Consciousness: Awake and Appropriate Patient Behavior: Guarded, Passive, Fatigued and Distractible Behavior Comments: Mood Description: Withdrawn and Anxious Affect Description: Constricted and Nervous Patient Cognition Impaired: Yes Ability to Follow Directions: Good Speech Pattern: Clear and Slurred Memory Description: Intact Diagnostics Vital Signs (24Hr): Vital Signs - 24 hr 03/30/23 18:00 03/31/23 07:30 03/31/23 15:10 Temperature 97.7 F 97.4 F Pulse Rate 58 84 Respiratory Rate 18 20 Blood Pressure 132/78 145/91 H 137/76 Pulse Oximetry 95 97 Oxygen Delivery Method Room Air Room Air BMI result Body Mass Index 30.2 Labs 03/04/23 07:45 03/04/23 07:45 Imaging Radiology Impressions: ITS Impressions Chest X-Ray 10/20/22 15:45 IMPRESSION: 1. Low lung volumes with bibasilar linear disc atelectasis versus scarring. 2. No airspace consolidation or effusion. Head CT 11/08/22 12:29 IMPRESSION: No acute intracranial hemorrhage or territorial infarction. Stable chronic postoperative changes with gliosis and encephalomalacia in the right frontal and right temporal lobes. Ex vacuo dilatation of the ventricles and diffuse parenchymal volume loss. Right-sided craniotomy changes. Chest X-Ray 11/12/22 10:32 IMPRESSION: Hypoexpanded lungs with bibasilar platelike atelectasis. Brain MRI 11/12/22 13:15 IMPRESSION: 1. No demonstrated acute intracranial abnormalities. 2. Chronic encephalomalacia of the right temporal, right frontal, and left occipital lobes. Small regions of chronic encephalomalacia in the parasagittal aspects of the bilateral parietal lobes. Moderate underlying microangiopathy and generalized cerebral volume loss. Chest X-Ray 11/14/22 15:52 IMPRESSION: Low lung volumes, bibasilar subsegmental atelectasis and slight elevation of the right hemidiaphragm similar to previous exam. Modified Barium Swallow 11/21/22 15:11 IMPRESSION: Laryngeal penetration on several occasions but no laryngeal aspiration. Mild retention of solid food in the valleculae which cleared with subsequent oral administration of water or thin barium. Correlate with speech therapy results. Orbit CT 01/23/23 14:05 IMPRESSION: - No definite significant intraorbital soft tissue findings to assessment is limited on a noncontrast CT of the orbits. No retrobulbar mass lesions and no cellulitic changes appreciated. - There are large fluid levels within the left maxillary sinus and within the right frontal sinus the can be correlated for clinical signs of acute sinusitis. - A peripherally ossified structure extending from the dorsal margin of the right nasolacrimal duct into the right maxillary sinus is stable when compared to examinations dated back to 08/24/2008 favoring a benign etiology. Cervical Spine CT 02/14/23 22:15 IMPRESSION: 1. No acute intracranial abnormality. Stable postsurgical changes with right frontotemporal encephalomalacia, global volume loss, and extraocular dilatation of the right lateral ventricle. 2. No cervical spine fracture or traumatic malalignment. Head CT 02/14/23 22:15 IMPRESSION: 1. No acute intracranial abnormality. Stable postsurgical changes with right frontotemporal encephalomalacia, global volume loss, and extraocular dilatation of the right lateral ventricle. 2. No cervical spine fracture or traumatic malalignment. Hip/Pelvis X-Ray 02/14/23 22:25 IMPRESSION: Moderate degenerative changes of the right hip with loss of superolateral joint space. Similar chronic posttraumatic deformity of the right femoral neck with chronic foreshortening. Status post left total hip arthroplasty in unchanged alignment however the lack of a crosstable lateral view limits assessment for dislocation. No acute fracture or dislocation appreciated on the available views. Foot X-Ray 02/22/23 13:50 IMPRESSION: * Postsurgical changes of arthrodesis first metatarsophalangeal joint. * There is developed large osteophyte from the head of the first metatarsal protruding laterally abutting the head of the second metatarsal. This might be the source of patient's pain. * Underlying degenerative osteoarthritis. Foot X-Ray 02/23/23 14:11 IMPRESSION: Mild degenerative changes MTP, PIP and DIP joints. No visible acute fracture or dislocation seen. Medications Medications Current Medications Acetaminophen (Acetaminophen 325 Mg Tablet) 975 mg PO Q6H PRN PRN Reason: Headache/Pain Mild Scale (1-3) Last Admin: 03/31/23 09:03 Dose: 975 mg Albuterol Sulfate (Albuterol Sulfate 90 Mcg 8 Gm Inhaler) 2 puff INHALE Q6H PRN PRN Reason: Wheezing Alprazolam (Alprazolam 0.5 Mg Tablet) 0.5 mg PO BEDTIME TAZ Last Admin: 03/30/23 21:04 Dose: 0.5 mg Alprazolam (Alprazolam 0.25 Mg Tablet) 0.125 mg PO QID PRN PRN Reason: Anxiety Last Admin: 03/31/23 15:12 Dose: 0.125 mg Amlodipine Besylate (Amlodipine Besylate 5 Mg Tablet) 5 mg PO DAILY TAZ; Protocol Last Admin: 03/31/23 09:04 Dose: 5 mg Artificial Tears (Artificial Tears 15 Ml Drops) 1 drop EYE-BOTH Q2H PRN PRN Reason: Dry Eyes Last Admin: 03/31/23 15:13 Dose: 1 drop Bisacodyl (Bisacodyl 10 Mg Supp.Rect) 10 mg [place] DAILY PRN PRN Reason: Constipation Clotrimazole (Clotrimazole 1 % Cream 15 Gm Tube) 1 appl TOPICAL BID TAZ; Protocol Last Admin: 03/31/23 09:20 Dose: Not Given Divalproex Sodium (Divalproex Sodium 250 Mg Tablet.Dr) 750 mg PO BEDTIME TAZ Last Admin: 03/30/23 21:04 Dose: 750 mg Guaifenesin/Dextromethorphan (Guaifenesin Dm 100/10/5 Ml 5 Ml Syrup) 5 ml PO Q4H PRN PRN Reason: cough Last Admin: 03/27/23 22:10 Dose: 5 ml Hydrocortisone (Hydrocortisone 1 % Cream 28.35 Gm Tube) 1 appl TOPICAL BID PRN; Protocol PRN Reason: itchy feet Last Admin: 03/30/23 21:11 Dose: 1 appl Hydroxyzine HCl (Hydroxyzine Hcl 25 Mg Tablet) 25 mg PO Q4H PRN PRN Reason: Anxiety Last Admin: 03/30/23 21:44 Dose: 25 mg Ibuprofen (Ibuprofen 600 Mg Tablet) 600 mg PO Q6H PRN PRN Reason: Pain, Moderate(Pain Scale 4-6) Last Admin: 03/31/23 15:13 Dose: 600 mg Latanoprost (Latanoprost 0.005 % Ophth No 2.5 Ml Drops) 1 drop EYE-BOTH BEDTIME TAZ Last Admin: 03/30/23 21:10 Dose: 1 drop Lidocaine (Lidocaine 5 % Ointment 35 Gm) 1 appl TOPICAL Q6H PRN; Protocol PRN Reason: pain r foot Last Admin: 03/30/23 21:11 Dose: 1 appl Magnesium Hydroxide (Milk Of Magnesia 30 Ml Oral.Susp) 30 ml PO BID PRN PRN Reason: constipation, stomach/GI upset Last Admin: 03/21/23 16:10 Dose: 30 ml Nortriptyline HCl (Nortriptyline Hcl 25 Mg Capsule) 50 mg PO BEDTIME TAZ Last Admin: 03/30/23 21:06 Dose: 50 mg Nystatin (Nystatin Powder 15 Gm Bottle) 1 appl TOPICAL BID TAZ; Protocol Last Admin: 03/31/23 09:20 Dose: Not Given Olanzapine (Olanzapine 2.5 Mg Tablet) 2.5 mg PO Q4H PRN PRN Reason: anxiety/restlessness Last Admin: 03/30/23 00:02 Dose: 2.5 mg Olanzapine (Olanzapine 2.5 Mg Tablet) 2.5 mg PO DAILY TAZ Last Admin: 03/31/23 09:04 Dose: 2.5 mg Olanzapine (Olanzapine 5 Mg Tablet) 5 mg PO BEDTIME TAZ Last Admin: 03/30/23 21:05 Dose: 5 mg Ondansetron HCl (Ondansetron Odt 4 Mg Tab.Rapdis) 4 mg TRANSLINGU Q6H PRN PRN Reason: Nausea and Vomiting Last Admin: 03/20/23 09:13 Dose: 4 mg Polyethylene Glycol (Polyethylene Glycol 3350 17 Gm Powd.Pack) 17 gm PO BID TAZ Last Admin: 03/31/23 09:07 Dose: 17 gm Propranolol HCl (Propranolol Hcl 10 Mg Tablet) 10 mg PO TID TAZ; Protocol Last Admin: 03/31/23 15:12 Dose: 10 mg Senna/Docusate Sodium (Sennosides/Docusate Sodium Tablet) 2 tab PO BEDTIME [facility] Last Admin: 03/30/23 21:05 Dose: 1 tab Sodium Chloride (Sodium Chloride 0.65 % Nasal 44 Ml Sprbtl) 1 spray NOSTRIL-B Q1H PRN PRN Reason: Nasal Congestion Last Admin: 02/26/23 21:14 Dose: 1 spray Tamsulosin HCl (Tamsulosin Hcl 0.4 Mg Capsule) 0.4 mg PO DAILY [facility] Last Admin: 03/31/23 09:04 Dose: 0.4 mg Trazodone HCl (Trazodone Hcl 100 Mg Tablet) 200 mg PO BEDTIME [facility] Last Admin: 03/30/23 21:05 Dose: 200 mg Venlafaxine HCl (Venlafaxine Hcl Er 75 Mg Cap.Er.24h) 75 mg PO DAILY [facility] Last Admin: 03/31/23 09:04 Dose: 75 mg Allergies Allergies Allergy/AdvReac Type Severity Reaction Status Date / Time fentanyl [FENTANYL] Allergy Intermediate unknown Verified 04/08/22 07:00 Assessment & Plan Assessment & Plan (1) Major depressive disorder, recurrent severe without psychotic features: Status: Acute Code(s): F33.2 - Major depressive disorder, recurrent severe without psychotic features (2) Cognitive and neurobehavioral dysfunction following brain injury: Status: Acute Code(s): G31.89 - Other specified degenerative diseases of nervous system; F09 - Unspecified mental disorder due to known physiological condition; S06.9X9S - Unspecified intracranial injury with loss of consciousness of unspecified duration, sequela (3) Personality disorder in adult: Status: Acute Code(s): F60.9 - Personality disorder, unspecified Plan ALPRAZOLAM 0.25 B.I.D. 0.5 BEDTIME OLANZAPINE ALSO 3 TIMES A DAY CONTINUE DEPAKOTE START PROPRANOLOL 10 T.I.D. THE PATIENT CONFRONTED REGARDING NEGATIVE TOXIC BEHAVIOR DIFFICULTY COPING AND NEGATIVE COMPLICATIONS TO HIS LIFE IF CONTINUE VERBALLY AGGRESSIVE AND TOXIC BEHAVIOR WITH OTHERS DEVALUATION ENCOURAGE REFLECTION STRESS MANAGEMENT COPING STRATEGIES 03/07 continue same treatment 03/08 continue same treatment 03/09 continue same treatment 03/10/23 Lower alprazolam .125 mg bid hold afternoon olanzapine secondary to slurring oversedation cont propranolol 03/11/23 Pt doing better less sedated struggles to maintain pos attitude 03/13 continue tx. 03/14: stable presentation, no change in mgmt. 03/15: appears sedated. no change in mgmt today. to F/U with attending tomorrow re meds for anxiety. 03/16 continue tx. 03/17 continue tx. 03/18 continue tx. 03/19 continue tx. 03/22 continue tx. 03/23 continue tx. 03/24/2023 Continue treatment plan discharge planning 03/25/2023 Continue plan of care 03/26/2023 Continued discharge planning needs much reassurance 03/27 continue tx. 03/28: Continue treatment plan. 03/29: Continue current treatment plan 03/30 continue tx. 03/31 continue tx. Reason for continued inpatient stay Substantial Risk for: inability to function Time Spent With Patient Time: Total time managing care of this patient today ____ minutes.
[2023-03-31 18:30] VITALS: BP 134/58; PULSE 69; RESP 20; TEMP 36.4; O2SAT 95
[2023-03-31] MEDS: ALPRAZolam 0.5 MG TABLET PO (20:47)
[2023-03-31] MEDS: Divalproex Sodium 250 MG TABLET.DR 750 MG PO (20:47)
[2023-03-31] MEDS: Clotrimazole 1 % Cream 15 GM TUBE 1 APPL TOPICAL (20:47)
[2023-03-31] MEDS: OLANZapine 5 MG TABLET PO (20:48)
[2023-03-31] MEDS: Nortriptyline HCl 25 MG CAPSULE 50 MG PO (20:48)
[2023-03-31] MEDS: Latanoprost 0.005 % Ophth Sol 2.5 ML DROPS 1 DROP EYE-BOTH (20:48)
[2023-03-31] MEDS: Nystatin Powder 15 GM BOTTLE 1 APPL TOPICAL (20:48)
[2023-03-31] MEDS: Sennosides/Docusate Sodium TABLET 2 TAB PO (20:53)
[2023-03-31] MEDS: traZODone HCL 100 MG TABLET 200 MG PO (20:54)
[2023-03-31] MEDS: Lidocaine 5 % Ointment 35 GM 1 APPL TOPICAL (21:07)
[2023-04-01 08:00] VITALS: BP 132/82; PULSE 94; RESP 16; TEMP 35.8; O2SAT 96
[2023-04-01] MEDS: polyethylene glycoL 3350 17 GM POWD.PACK PO (09:25)
[2023-04-01] MEDS: Propranolol HCL 10 MG TABLET PO ×3 (09:30→21:28)
[2023-04-01] MEDS: amLODIPine Besylate 5 MG TABLET PO (09:30)
[2023-04-01] MEDS: Tamsulosin HCL 0.4 MG CAPSULE PO (09:30)
[2023-04-01] MEDS: OLANZapine 2.5 MG TABLET PO (09:30)
[2023-04-01] MEDS: Venlafaxine HCl ER 75 MG CAP.ER.24H PO (09:30)
[2023-04-01 18:00] VITALS: BP 107/73; PULSE 72; RESP 16; TEMP 35.8; O2SAT 95
--- NOTE | 2023-04-01 20:18 | P.PNPSI_ITS ---
Subjective Subjective Date of Service: 04/01/23 Reason For Visit: Depression hopelessness irritability Subjective Notes: Conditional Voluntary Healthcare Proxy: No Guardianship: No Interim History: pt dysphoric difficulty coping with ongoing [facility] Medication Compliance: Yes Mental Status Exam Mental Status Exam Narrative: Patient Appearance: Well Grooomed and Appropriate Patient Orientation: Person, Place and Situation Level of Consciousness: Awake and Appropriate Patient Behavior: Guarded, Passive, Fatigued and Distractible Behavior Comments: Mood Description: Withdrawn and Anxious Affect Description: Constricted and Nervous Patient Cognition Impaired: Yes Ability to Follow Directions: Good Speech Pattern: Clear and Slurred Memory Description: Intact Diagnostics Vital Signs (24Hr): Vital Signs - 24 hr 04/01/23 08:00 Temperature 96.5 F L Pulse Rate 94 Respiratory Rate 16 Blood Pressure 132/82 Pulse Oximetry 96 Oxygen Delivery Method Room Air BMI result Body Mass Index 30.2 Labs 03/04/23 07:45 03/04/23 07:45 Imaging Radiology Impressions: ITS Impressions Chest X-Ray 10/20/22 15:45 IMPRESSION: 1. Low lung volumes with bibasilar linear disc atelectasis versus scarring. 2. No airspace consolidation or effusion. Head CT 11/08/22 12:29 IMPRESSION: No acute intracranial hemorrhage or territorial infarction. Stable chronic postoperative changes with gliosis and encephalomalacia in the right frontal and right temporal lobes. Ex vacuo dilatation of the ventricles and diffuse parenchymal volume loss. Right-sided craniotomy changes. Chest X-Ray 11/12/22 10:32 IMPRESSION: Hypoexpanded lungs with bibasilar platelike atelectasis. Brain MRI 11/12/22 13:15 IMPRESSION: 1. No demonstrated acute intracranial abnormalities. 2. Chronic encephalomalacia of the right temporal, right frontal, and left occipital lobes. Small regions of chronic encephalomalacia in the parasagittal aspects of the bilateral parietal lobes. Moderate underlying microangiopathy and generalized cerebral volume loss. Chest X-Ray 11/14/22 15:52 IMPRESSION: Low lung volumes, bibasilar subsegmental atelectasis and slight elevation of the right hemidiaphragm similar to previous exam. Modified Barium Swallow 11/21/22 15:11 IMPRESSION: Laryngeal penetration on several occasions but no laryngeal aspiration. Mild retention of solid food in the valleculae which cleared with subsequent oral administration of water or thin barium. Correlate with speech therapy results. Orbit CT 01/23/23 14:05 IMPRESSION: - No definite significant intraorbital soft tissue findings to assessment is limited on a noncontrast CT of the orbits. No retrobulbar mass lesions and no cellulitic changes appreciated. - There are large fluid levels within the left maxillary sinus and within the right frontal sinus the can be correlated for clinical signs of acute sinusitis. - A peripherally ossified structure extending from the dorsal margin of the right nasolacrimal duct into the right maxillary sinus is stable when compared to examinations dated back to 08/24/2008 favoring a benign etiology. Cervical Spine CT 02/14/23 22:15 IMPRESSION: 1. No acute intracranial abnormality. Stable postsurgical changes with right frontotemporal encephalomalacia, global volume loss, and extraocular dilatation of the right lateral ventricle. 2. No cervical spine fracture or traumatic malalignment. Head CT 02/14/23 22:15 IMPRESSION: 1. No acute intracranial abnormality. Stable postsurgical changes with right frontotemporal encephalomalacia, global volume loss, and extraocular dilatation of the right lateral ventricle. 2. No cervical spine fracture or traumatic malalignment. Hip/Pelvis X-Ray 02/14/23 22:25 IMPRESSION: Moderate degenerative changes of the right hip with loss of superolateral joint space. Similar chronic posttraumatic deformity of the right femoral neck with chronic foreshortening. Status post left total hip arthroplasty in unchanged alignment however the lack of a crosstable lateral view limits assessment for dislocation. No acute fracture or dislocation appreciated on the available views. Foot X-Ray 02/22/23 13:50 IMPRESSION: * Postsurgical changes of arthrodesis first metatarsophalangeal joint. * There is developed large osteophyte from the head of the first metatarsal protruding laterally abutting the head of the second metatarsal. This might be the source of patient's pain. * Underlying degenerative osteoarthritis. Foot X-Ray 02/23/23 14:11 IMPRESSION: Mild degenerative changes MTP, PIP and DIP joints. No visible acute fracture or dislocation seen. Medications Medications Current Medications Acetaminophen (Acetaminophen 325 Mg Tablet) 975 mg PO Q6H PRN PRN Reason: Headache/Pain Mild Scale (1-3) Last Admin: 03/31/23 20:54 Dose: 975 mg Albuterol Sulfate (Albuterol Sulfate 90 Mcg 8 Gm Inhaler) 2 puff INHALE Q6H PRN PRN Reason: Wheezing Alprazolam (Alprazolam 0.5 Mg Tablet) 0.5 mg PO BEDTIME TAZ Last Admin: 03/31/23 20:47 Dose: 0.5 mg Alprazolam (Alprazolam 0.25 Mg Tablet) 0.125 mg PO QID PRN PRN Reason: Anxiety Last Admin: 03/31/23 15:12 Dose: 0.125 mg Amlodipine Besylate (Amlodipine Besylate 5 Mg Tablet) 5 mg PO DAILY TAZ; Protocol Last Admin: 04/01/23 09:30 Dose: 5 mg Artificial Tears (Artificial Tears 15 Ml Drops) 1 drop EYE-BOTH Q2H PRN PRN Reason: Dry Eyes Last Admin: 03/31/23 15:13 Dose: 1 drop Bisacodyl (Bisacodyl 10 Mg Supp.Rect) 10 mg [place] DAILY PRN PRN Reason: Constipation Clotrimazole (Clotrimazole 1 % Cream 15 Gm Tube) 1 appl TOPICAL BID TAZ; Pro tocol Last Admin: 04/01/23 09:30 Dose: Not Given Divalproex Sodium (Divalproex Sodium 250 Mg Tablet.Dr) 750 mg PO BEDTIME TAZ Last Admin: 03/31/23 20:47 Dose: 750 mg Guaifenesin/Dextromethorphan (Guaifenesin Dm 100/10/5 Ml 5 Ml Syrup) 5 ml PO Q4H PRN PRN Reason: cough Last Admin: 03/27/23 22:10 Dose: 5 ml Hydrocortisone (Hydrocortisone 1 % Cream 28.35 Gm Tube) 1 appl TOPICAL BID PRN; Protocol PRN Reason: itchy feet Last Admin: 03/30/23 21:11 Dose: 1 appl Hydroxyzine HCl (Hydroxyzine Hcl 25 Mg Tablet) 25 mg PO Q4H PRN PRN Reason: Anxiety Last Admin: 03/30/23 21:44 Dose: 25 mg Ibuprofen (Ibuprofen 600 Mg Tablet) 600 mg PO Q6H PRN PRN Reason: Pain, Moderate(Pain Scale 4-6) Last Admin: 03/31/23 15:13 Dose: 600 mg Latanoprost (Latanoprost 0.005 % Ophth No 2.5 Ml Drops) 1 drop EYE-BOTH BEDTIME TAZ Last Admin: 03/31/23 20:48 Dose: 1 drop Lidocaine (Lidocaine 5 % Ointment 35 Gm) 1 appl TOPICAL Q6H PRN; Protocol PRN Reason: pain r foot Last Admin: 03/31/23 21:07 Dose: 1 appl Magnesium Hydroxide (Milk Of Magnesia 30 Ml Oral.Susp) 30 ml PO BID PRN PRN Reason: constipation, stomach/GI upset Last Admin: 03/21/23 16:10 Dose: 30 ml Nortriptyline HCl (Nortriptyline Hcl 25 Mg Capsule) 50 mg PO BEDTIME TAZ Last Admin: 03/31/23 20:48 Dose: 50 mg Nystatin (Nystatin Powder 15 Gm Bottle) 1 appl TOPICAL BID TAZ; Protocol Last Admin: 04/01/23 09:30 Dose: Not Given Olanzapine (Olanzapine 2.5 Mg Tablet) 2.5 mg PO Q4H PRN PRN Reason: anxiety/restlessness Last Admin: 03/30/23 00:02 Dose: 2.5 mg Olanzapine (Olanzapine 2.5 Mg Tablet) 2.5 mg PO DAILY [facility] Last Admin: 04/01/23 09:30 Dose: 2.5 mg Ondansetron HCl (Ondansetron Odt 4 Mg Tab.Rapdis) 4 mg TRANSLINGU Q6H PRN PRN Reason: Nausea and Vomiting Last Admin: 03/20/23 09:13 Dose: 4 mg Polyethylene Glycol (Polyethylene Glycol 3350 17 Gm Powd.Pack) 17 gm PO BID [facility] Last Admin: 04/01/23 09:25 Dose: 17 gm Propranolol HCl (Propranolol Hcl 10 Mg Tablet) 10 mg PO TID [facility]; Protocol Last Admin: 04/01/23 15:26 Dose: 10 mg Senna/Docusate Sodium (Sennosides/Docusate Sodium Tablet) 2 tab PO BEDTIME [facility] Last Admin: 03/31/23 20:53 Dose: 1 tab Sodium Chloride (Sodium Chloride 0.65 % Nasal 44 Ml Sprbtl) 1 spray NOSTRIL-B Q1H PRN PRN Reason: Nasal Congestion Last Admin: 02/26/23 21:14 Dose: 1 spray Tamsulosin HCl (Tamsulosin Hcl 0.4 Mg Capsule) 0.4 mg PO DAILY [facility] Last Admin: 04/01/23 09:30 Dose: 0.4 mg Trazodone HCl (Trazodone Hcl 100 Mg Tablet) 200 mg PO BEDTIME [facility] Last Admin: 03/31/23 20:54 Dose: 200 mg Venlafaxine HCl (Venlafaxine Hcl Er 75 Mg Cap.Er.24h) 75 mg PO DAILY [facility] Last Admin: 04/01/23 09:30 Dose: 75 mg Allergies Allergies Allergy/AdvReac Type Severity Reaction Status Date / Time fentanyl [FENTANYL] Allergy Intermediate unknown Verified 04/08/22 07:00 Assessment & Plan Assessment & Plan (1) Major depressive disorder, recurrent severe without psychotic features: Status: Acute Code(s): F33.2 - Major depressive disorder, recurrent severe without psychotic features (2) Cognitive and neurobehavioral dysfunction following brain injury: Status: Acute Code(s): G31.89 - Other specified degenerative diseases of nervous system; F09 - Unspecified mental disorder due to known physiological condition; S06.9X9S - Unspecified intracranial injury with loss of consciousness of unspecified duration, sequela (3) Personality disorder in adult: Status: Acute Code(s): F60.9 - Personality disorder, unspecified Plan ALPRAZOLAM 0.25 B.I.D. 0.5 BEDTIME OLANZAPINE ALSO 3 TIMES A DAY CONTINUE DEPAKOTE START PROPRANOLOL 10 T.I.D. THE PATIENT CONFRONTED REGARDING NEGATIVE TOXIC BEHAVIOR DIFFICULTY COPING AND NEGATIVE COMPLICATIONS TO HIS LIFE IF CONTINUE VERBALLY AGGRESSIVE AND TOXIC BEHAVIOR WITH OTHERS DEVALUATION ENCOURAGE REFLECTION STRESS MANAGEMENT COPING STRATEGIES 03/07 continue same treatment 03/08 continue same treatment 03/09 continue same treatment 03/10/23 Lower alprazolam .125 mg bid hold afternoon olanzapine secondary to slurring oversedation cont propranolol 03/11/23 Pt doing better less sedated struggles to maintain pos attitude 03/13 continue tx. 03/14: stable presentation, no change in mgmt. 03/15: appears sedated. no change in mgmt today. to F/U with attending tomorrow re meds for anxiety. 03/16 continue tx. 03/17 continue tx. 03/18 continue tx. 03/19 continue tx. 03/22 continue tx. 03/23 continue tx. 03/24/2023 Continue treatment plan discharge planning 03/25/2023 Continue plan of care 03/26/2023 Continued discharge planning needs much reassurance 03/27 continue tx. 03/28: Continue treatment plan. 03/29: Continue current treatment plan 03/30 continue tx. 04/01/23 continue plan of care needs much encouragement Reason for continued inpatient stay Substantial Risk for: harm to self (helpless hopeless at times ), inability to function and rapid decompensation Time Spent With Patient Time: Total time managing care of this patient today ____ minutes.
[2023-04-01] MEDS: Latanoprost 0.005 % Ophth Sol 2.5 ML DROPS 1 DROP EYE-BOTH (21:26)
[2023-04-01] MEDS: Nortriptyline HCl 25 MG CAPSULE 50 MG PO (21:27)
[2023-04-01] MEDS: ALPRAZolam 0.5 MG TABLET PO (21:27)
[2023-04-01] MEDS: Sennosides/Docusate Sodium TABLET 2 TAB PO (21:28)
[2023-04-01] MEDS: Divalproex Sodium 250 MG TABLET.DR 750 MG PO (21:29)
[2023-04-01] MEDS: traZODone HCL 100 MG TABLET 200 MG PO (21:29)
[2023-04-01] MEDS: Nystatin Powder 15 GM BOTTLE 1 APPL TOPICAL (21:35)
[2023-04-01] MEDS: Hydrocortisone 1 % Cream 28.35 GM TUBE 1 APPL TOPICAL (21:38)
[2023-04-01] MEDS: Acetaminophen 325 MG TABLET 975 MG PO (21:56)
[2023-04-02] MEDS: hydrOXYzine HCL 25 MG TABLET PO ×2 (00:55→22:08)
[2023-04-02] MEDS: Ibuprofen 600 MG TABLET PO (00:55)
[2023-04-02] MEDS: Clotrimazole 1 % Cream 15 GM TUBE 1 APPL TOPICAL ×2 (01:19→21:37)
[2023-04-02 08:00] VITALS: BP 135/69; PULSE 85; RESP 16; TEMP 36.4; O2SAT 96
[2023-04-02] MEDS: Propranolol HCL 10 MG TABLET PO ×3 (08:59→21:35)
[2023-04-02] MEDS: OLANZapine 2.5 MG TABLET PO (08:59)
[2023-04-02] MEDS: Venlafaxine HCl ER 75 MG CAP.ER.24H PO (08:59)
[2023-04-02] MEDS: polyethylene glycoL 3350 17 GM POWD.PACK PO (08:59)
--- NOTE | 2023-04-02 13:44 | HO.PSYCHPN ---
Subjective Subjective Date of Service: 04/02/23 Reason For Visit: Depression hopelessness irritability Subjective Notes: Conditional Voluntary Interim History: The nursing staff reported the patient had been easily agitated and frustrated since his disposition is taking some time. He slept well last night. On interview the patient denies new symptoms, waiting for placement Mental Status Exam Mental Status Exam Patient Appearance: Appropriate Patient Orientation: Person and Situation Level of Consciousness: Awake and Appropriate Patient Behavior: Guarded and Passive Mood Description: Withdrawn Affect Description: Constricted Patient Cognition Impaired: Yes Ability to Follow Directions: Good Speech Pattern: Clear Hallucinations: None Delusions: Not Present Thought Process: Distracted Thought Content: positive for [place] and positive for Circumstantial Judgement: Fair Diagnostics Vital Signs (24Hr): Vital Signs - 24 hr 04/01/23 18:00 04/02/23 08:00 Temperature 96.5 F L 97.5 F Pulse Rate 72 85 Respiratory Rate 16 16 Blood Pressure 107/73 135/69 Pulse Oximetry 95 96 Oxygen Delivery Method Room Air Room Air BMI result Body Mass Index 30.2 Labs 03/04/23 07:45 03/04/23 07:45 Imaging Radiology Impressions: ITS Impressions Chest X-Ray 10/20/22 15:45 IMPRESSION: 1. Low lung volumes with bibasilar linear disc atelectasis versus scarring. 2. No airspace consolidation or effusion. Head CT 11/08/22 12:29 IMPRESSION: No acute intracranial hemorrhage or territorial infarction. Stable chronic postoperative changes with gliosis and encephalomalacia in the right frontal and right temporal lobes. Ex vacuo dilatation of the ventricles and diffuse parenchymal volume loss. Right-sided craniotomy changes. Chest X-Ray 11/12/22 10:32 IMPRESSION: Hypoexpanded lungs with bibasilar platelike atelectasis. Brain MRI 11/12/22 13:15 IMPRESSION: 1. No demonstrated acute intracranial abnormalities. 2. Chronic encephalomalacia of the right temporal, right frontal, and left occipital lobes. Small regions of chronic encephalomalacia in the parasagittal aspects of the bilateral parietal lobes. Moderate underlying microangiopathy and generalized cerebral volume loss. Chest X-Ray 11/14/22 15:52 IMPRESSION: Low lung volumes, bibasilar subsegmental atelectasis and slight elevation of the right hemidiaphragm similar to previous exam. Modified Barium Swallow 11/21/22 15:11 IMPRESSION: Laryngeal penetration on several occasions but no laryngeal aspiration. Mild retention of solid food in the valleculae which cleared with subsequent oral administration of water or thin barium. Correlate with speech therapy results. Orbit CT 01/23/23 14:05 IMPRESSION: - No definite significant intraorbital soft tissue findings to assessment is limited on a noncontrast CT of the orbits. No retrobulbar mass lesions and no cellulitic changes appreciated. - There are large fluid levels within the left maxillary sinus and within the right frontal sinus the can be correlated for clinical signs of acute sinusitis. - A peripherally ossified structure extending from the dorsal margin of the right nasolacrimal duct into the right maxillary sinus is stable when compared to examinations dated back to 08/24/2008 favoring a benign etiology. Cervical Spine CT 02/14/23 22:15 IMPRESSION: 1. No acute intracranial abnormality. Stable postsurgical changes with right frontotemporal encephalomalacia, global volume loss, and extraocular dilatation of the right lateral ventricle. 2. No cervical spine fracture or traumatic malalignment. Head CT 02/14/23 22:15 IMPRESSION: 1. No acute intracranial abnormality. Stable postsurgical changes with right frontotemporal encephalomalacia, global volume loss, and extraocular dilatation of the right lateral ventricle. 2. No cervical spine fracture or traumatic malalignment. Hip/Pelvis X-Ray 02/14/23 22:25 IMPRESSION: Moderate degenerative changes of the right hip with loss of superolateral joint space. Similar chronic posttraumatic deformity of the right femoral neck with chronic foreshortening. Status post left total hip arthroplasty in unchanged alignment however the lack of a crosstable lateral view limits assessment for dislocation. No acute fracture or dislocation appreciated on the available views. Foot X-Ray 02/22/23 13:50 IMPRESSION: * Postsurgical changes of arthrodesis first metatarsophalangeal joint. * There is developed large osteophyte from the head of the first metatarsal protruding laterally abutting the head of the second metatarsal. This might be the source of patient's pain. * Underlying degenerative osteoarthritis. Foot X-Ray 02/23/23 14:11 IMPRESSION: Mild degenerative changes MTP, PIP and DIP joints. No visible acute fracture or dislocation seen. Medications Medications Current Medications Acetaminophen (Acetaminophen 325 Mg Tablet) 975 mg PO Q6H PRN PRN Reason: Headache/Pain Mild Scale (1-3) Last Admin: 04/01/23 21:56 Dose: 975 mg Alprazolam (Alprazolam 0.5 Mg Tablet) 0.5 mg PO BEDTIME TAZ Last Admin: 04/01/23 21:27 Dose: 0.5 mg Alprazolam (Alprazolam 0.25 Mg Tablet) 0.125 mg PO QID PRN PRN Reason: Anxiety Last Admin: 03/31/23 15:12 Dose: 0.125 mg Artificial Tears (Artificial Tears 15 Ml Drops) 1 drop EYE-BOTH Q2H PRN PRN Reason: Dry Eyes Last Admin: 03/31/23 15:13 Dose: 1 drop Bisacodyl (Bisacodyl 10 Mg Supp.Rect) 10 mg [place] DAILY PRN PRN Reason: Constipation Clotrimazole (Clotrimazole 1 % Cream 15 Gm Tube) 1 appl TOPICAL BID TAZ; Protocol Last Admin: 04/02/23 08:59 Dose: Not Given Divalproex Sodium (Divalproex Sodium 250 Mg Tablet.Dr) 750 mg PO BEDTIME TAZ Last Admin: 04/01/23 21:29 Dose: 750 mg Guaifenesin/Dextromethorphan (Guaifenesin Dm 100/10/5 Ml 5 Ml Syrup) 5 ml PO Q4H PRN PRN Reason: cough Last Admin: 03/27/23 22:10 Dose: 5 ml Hydrocortisone (Hydrocortisone 1 % Cream 28.35 Gm Tube) 1 appl TOPICAL BID PRN; Protocol PRN Reason: itchy feet Last Admin: 04/01/23 21:38 Dose: 1 appl Hydroxyzine HCl (Hydroxyzine Hcl 25 Mg Tablet) 25 mg PO Q4H PRN PRN Reason: Anxiety Last Admin: 04/02/23 00:55 Dose: 25 mg Ibuprofen (Ibuprofen 600 Mg Tablet) 600 mg PO Q6H PRN PRN Reason: Pain, Moderate(Pain Scale 4-6) Last Admin: 04/02/23 00:55 Dose: 600 mg Latanoprost (Latanoprost 0.005 % Ophth No 2.5 Ml Drops) 1 drop EYE-BOTH BEDTIME TAZ Last Admin: 04/01/23 21:26 Dose: 1 drop Lidocaine (Lidocaine 5 % Ointment 35 Gm) 1 appl TOPICAL Q6H PRN; Protocol PRN Reason: pain r foot Last Admin: 03/31/23 21:07 Dose: 1 appl Magnesium Hydroxide (Milk Of Magnesia 30 Ml Oral.Susp) 30 ml PO BID PRN PRN Reason: constipation, stomach/GI upset Last Admin: 03/21/23 16:10 Dose: 30 ml Nortriptyline HCl (Nortriptyline Hcl 25 Mg Capsule) 50 mg PO BEDTIME TAZ Last Admin: 04/01/23 21:27 Dose: 50 mg Nystatin (Nystatin Powder 15 Gm Bottle) 1 appl TOPICAL BID TAZ; Protocol Last Admin: 04/02/23 09:00 Dose: Not Given Olanzapine (Olanzapine 2.5 Mg Tablet) 2.5 mg PO Q4H PRN PRN Reason: anxiety/restlessness Last Admin: 03/30/23 00:02 Dose: 2.5 mg Olanzapine (Olanzapine 2.5 Mg Tablet) 2.5 mg PO DAILY TAZ Last Admin: 04/02/23 08:59 Dose: 2.5 mg Ondansetron HCl (Ondansetron Odt 4 Mg Tab.Rapdis) 4 mg TRANSLINGU Q6H PRN PRN Reason: Nausea and Vomiting Last Admin: 03/20/23 09:13 Dose: 4 mg Polyethylene Glycol (Polyethylene Glycol 3350 17 Gm Powd.Pack) 17 gm PO BID ATZ Last Admin: 04/02/23 08:59 Dose: 17 gm Propranolol HCl (Propranolol Hcl 10 Mg Tablet) 10 mg PO TID [facility]; Protocol Last Admin: 04/02/23 08:59 Dose: 10 mg Senna/Docusate Sodium (Sennosides/Docusate Sodium Tablet) 2 tab PO BEDTIME TAZ Last Admin: 04/01/23 21:28 Dose: 1 tab Sodium Chloride (Sodium Chloride 0.65 % Nasal 44 Ml Sprbtl) 1 spray NOSTRIL-B Q1H PRN PRN Reason: Nasal Congestion Last Admin: 02/26/23 21:14 Dose: 1 spray Allergies Allergies Allergy/AdvReac Type Severity Reaction Status Date / Time fentanyl [FENTANYL] Allergy Intermediate unknown Verified 04/08/22 07:00 Assessment & Plan Assessment & Plan (1) Major depressive disorder, recurrent severe without psychotic features: Status: Acute Code(s): F33.2 - Major depressive disorder, recurrent severe without psychotic features (2) Cognitive and neurobehavioral dysfunction following brain injury: Status: Acute Code(s): G31.89 - Other specified degenerative diseases of nervous system; F09 - Unspecified mental disorder due to known physiological condition; S06.9X9S - Unspecified intracranial injury with loss of consciousness of unspecified duration, sequela (3) Personality disorder in adult: Status: Acute Code(s): F60.9 - Personality disorder, unspecified Plan ALPRAZOLAM 0.25 B.I.D. 0.5 BEDTIME OLANZAPINE ALSO 3 TIMES A DAY CONTINUE DEPAKOTE START PROPRANOLOL 10 T.I.D. THE PATIENT CONFRONTED REGARDING NEGATIVE TOXIC BEHAVIOR DIFFICULTY COPING AND NEGATIVE COMPLICATIONS TO HIS LIFE IF CONTINUE VERBALLY AGGRESSIVE AND TOXIC BEHAVIOR WITH OTHERS DEVALUATION ENCOURAGE REFLECTION STRESS MANAGEMENT COPING STRATEGIES 03/07 continue same treatment 03/08 continue same treatment 03/09 continue same treatment 03/10/23 Lower alprazolam .125 mg bid hold afternoon olanzapine secondary to slurring oversedation cont propranolol 03/11/23 Pt doing better less sedated struggles to maintain pos attitude 03/13 continue tx. 03/14: stable presentation, no change in mgmt. 03/15: appears sedated. no change in mgmt today. to F/U with attending tomorrow re meds for anxiety. 03/16 continue tx. 03/17 continue tx. 03/18 continue tx. 03/19 continue tx. 03/22 continue tx. 03/23 continue tx. 03/24/2023 Continue treatment plan discharge planning 03/25/2023 Continue plan of care 03/26/2023 Continued discharge planning needs much reassurance 03/27 continue tx. 03/28: Continue treatment plan. 03/29: Continue current treatment plan 03/30 continue tx. 03/31 continue tx. 04/02 no changes in treatment Reason for continued inpatient stay Substantial Risk for: inability to function, rapid decompensation and med/psych decompensation Time Spent With Patient Time: Total time managing care of this patient today _20___ minutes.
[2023-04-02 18:00] VITALS: BP 113/65; PULSE 67; TEMP 36.1; O2SAT 97
[2023-04-02] MEDS: ALPRAZolam 0.5 MG TABLET PO (21:34)
[2023-04-02] MEDS: Acetaminophen 325 MG TABLET 975 MG PO (21:34)
[2023-04-02] MEDS: Sennosides/Docusate Sodium TABLET 2 TAB PO (21:35)
[2023-04-02] MEDS: Divalproex Sodium 250 MG TABLET.DR 750 MG PO (21:35)
[2023-04-02] MEDS: Nortriptyline HCl 25 MG CAPSULE 50 MG PO (21:36)
[2023-04-02] MEDS: Nystatin Powder 15 GM BOTTLE 1 APPL TOPICAL (21:37)
[2023-04-02] MEDS: Lidocaine 5 % Ointment 35 GM 1 APPL TOPICAL (21:37)
[2023-04-02] MEDS: Latanoprost 0.005 % Ophth Sol 2.5 ML DROPS 1 DROP EYE-BOTH (21:59)
[2023-04-03] MEDS: Ibuprofen 600 MG TABLET PO (02:40)
[2023-04-03] MEDS: ALPRAZolam 0.25 MG TABLET 0.125 MG PO ×2 (02:48→15:34)
[2023-04-03 08:46] VITALS: BP 153/77; PULSE 78; RESP 16; TEMP 36.1; O2SAT 94
[2023-04-03] MEDS: Propranolol HCL 10 MG TABLET PO (08:50)
[2023-04-03] MEDS: OLANZapine 2.5 MG TABLET PO ×2 (08:50→21:08)
[2023-04-03] MEDS: polyethylene glycoL 3350 17 GM POWD.PACK PO (08:50)
[2023-04-03] MEDS: Clotrimazole 1 % Cream 15 GM TUBE 1 APPL TOPICAL ×2 (08:51→21:22)
[2023-04-03] MEDS: Nystatin Powder 15 GM BOTTLE 1 APPL TOPICAL ×2 (08:51→21:20)
[2023-04-03] MEDS: Artificial Tears 15 ML DROPS 1 DROP EYE-BOTH (10:21)
[2023-04-03] MEDS: Acetaminophen 325 MG TABLET 975 MG PO (15:33)
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
[2023-04-03 17:39] VITALS: BP 140/74; PULSE 81
[2023-04-03] MEDS: Propranolol HCL 20 MG TABLET PO (17:53)
[2023-04-03 18:00] VITALS: BP 147/78; PULSE 77; RESP 18; TEMP 36.1; O2SAT 96
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
[2023-04-03] MEDS: Nortriptyline HCl 25 MG CAPSULE 50 MG PO (21:07)
[2023-04-03] MEDS: Sennosides/Docusate Sodium TABLET 2 TAB PO (21:07)
[2023-04-03] MEDS: ALPRAZolam 0.5 MG TABLET PO (21:08)
[2023-04-03] MEDS: Divalproex Sodium 250 MG TABLET.DR 750 MG PO (21:08)
[2023-04-03] MEDS: Latanoprost 0.005 % Ophth Sol 2.5 ML DROPS 1 DROP EYE-BOTH (21:09)
[2023-04-03] MEDS: Lidocaine 5 % Ointment 35 GM 1 APPL TOPICAL (21:28)
[2023-04-04] MEDS: Acetaminophen 325 MG TABLET 975 MG PO ×2 (00:26→21:38)
[2023-04-04] MEDS: hydrOXYzine HCL 25 MG TABLET PO ×2 (00:26→23:07)
[2023-04-04] MEDS: polyethylene glycoL 3350 17 GM POWD.PACK PO (08:06)
[2023-04-04] MEDS: OLANZapine 2.5 MG TABLET PO ×3 (08:06→21:22)
[2023-04-04] MEDS: Propranolol HCL 20 MG TABLET PO ×3 (08:06→21:22)
[2023-04-04] MEDS: ALPRAZolam 0.25 MG TABLET PO ×2 (08:06→13:54)
[2023-04-04 08:11] VITALS: BP 135/86; PULSE 84
--- NOTE | 2023-04-04 14:53 | HO.PSYCHPN ---
Subjective Subjective Date of Service: 04/04/23 Reason For Visit: Depression hopelessness irritability Interim History: Pt seen and discussed with the team. No reported behavioral symptoms of concern, however frustration as he has misplaced his glassed and hearing aides. Compliant with medications and plan of care. Eating and sleeping reasonably he reports. Affect blunted with intermittent hostility. No behaviors of concern. No medication changes today. Mental Status Exam Mental Status Exam Patient Appearance: Appropriate Patient Orientation: Person and Situation Level of Consciousness: Awake and Appropriate Patient Behavior: Guarded and Passive Mood Description: Withdrawn Affect Description: Constricted Patient Cognition Impaired: Yes Ability to Follow Directions: Good Speech Pattern: Clear Hallucinations: None Delusions: Not Present Thought Process: Distracted Thought Content: positive for [employer] and positive for Circumstantial Judgement: Fair Diagnostics Vital Signs (24Hr): Vital Signs - 24 hr 04/03/23 17:39 04/03/23 18:00 04/04/23 08:11 Temperature 96.9 F Pulse Rate 81 77 84 Respiratory Rate 18 Blood Pressure 140/74 H 147/78 H 135/86 Pulse Oximetry 96 Oxygen Delivery Method Room Air BMI result Body Mass Index 30.2 Labs 03/04/23 07:45 03/04/23 07:45 Imaging Radiology Impressions: ITS Impressions Chest X-Ray 10/20/22 15:45 IMPRESSION: 1. Low lung volumes with bibasilar linear disc atelectasis versus scarring. 2. No airspace consolidation or effusion. Head CT 11/08/22 12:29 IMPRESSION: No acute intracranial hemorrhage or territorial infarction. Stable chronic postoperative changes with gliosis and encephalomalacia in the right frontal and right temporal lobes. Ex vacuo dilatation of the ventricles and diffuse parenchymal volume loss. Right-sided craniotomy changes. Chest X-Ray 11/12/22 10:32 IMPRESSION: Hypoexpanded lungs with bibasilar platelike atelectasis. Brain MRI 11/12/22 13:15 IMPRESSION: 1. No demonstrated acute intracranial abnormalities. 2. Chronic encephalomalacia of the right temporal, right frontal, and left occipital lobes. Small regions of chronic encephalomalacia in the parasagittal aspects of the bilateral parietal lobes. Moderate underlying microangiopathy and generalized cerebral volume loss. Chest X-Ray 11/14/22 15:52 IMPRESSION: Low lung volumes, bibasilar subsegmental atelectasis and slight elevation of the right hemidiaphragm similar to previous exam. Modified Barium Swallow 11/21/22 15:11 IMPRESSION: Laryngeal penetration on several occasions but no laryngeal aspiration. Mild retention of solid food in the valleculae which cleared with subsequent oral administration of water or thin barium. Correlate with speech therapy results. Orbit CT 01/23/23 14:05 IMPRESSION: - No definite significant intraorbital soft tissue findings to assessment is limited on a noncontrast CT of the orbits. No retrobulbar mass lesions and no cellulitic changes appreciated. - There are large fluid levels within the left maxillary sinus and within the right frontal sinus the can be correlated for clinical signs of acute sinusitis. - A peripherally ossified structure extending from the dorsal margin of the right nasolacrimal duct into the right maxillary sinus is stable when compared to examinations dated back to 08/24/2008 favoring a benign etiology. Cervical Spine CT 02/14/23 22:15 IMPRESSION: 1. No acute intracranial abnormality. Stable postsurgical changes with right frontotemporal encephalomalacia, global volume loss, and extraocular dilatation of the right lateral ventricle. 2. No cervical spine fracture or traumatic malalignment. Head CT 02/14/23 22:15 IMPRESSION: 1. No acute intracranial abnormality. Stable postsurgical changes with right frontotemporal encephalomalacia, global volume loss, and extraocular dilatation of the right lateral ventricle. 2. No cervical spine fracture or traumatic malalignment. Hip/Pelvis X-Ray 02/14/23 22:25 IMPRESSION: Moderate degenerative changes of the right hip with loss of superolateral joint space. Similar chronic posttraumatic deformity of the right femoral neck with chronic foreshortening. Status post left total hip arthroplasty in unchanged alignment however the lack of a crosstable lateral view limits assessment for dislocation. No acute fracture or dislocation appreciated on the available views. Foot X-Ray 02/22/23 13:50 IMPRESSION: * Postsurgical changes of arthrodesis first metatarsophalangeal joint. * There is developed large osteophyte from the head of the first metatarsal protruding laterally abutting the head of the second metatarsal. This might be the source of patient's pain. * Underlying degenerative osteoarthritis. Foot X-Ray 02/23/23 14:11 IMPRESSION: Mild degenerative changes MTP, PIP and DIP joints. No visible acute fracture or dislocation seen. Medications Medications Current Medications Acetaminophen (Acetaminophen 325 Mg Tablet) 975 mg PO Q6H PRN PRN Reason: Headache/Pain Mild Scale (1-3) Last Admin: 04/04/23 00:26 Dose: 975 mg Alprazolam (Alprazolam 0.5 Mg Tablet) 0.5 mg PO BEDTIME TAZ Last Admin: 04/03/23 21:08 Dose: 0.5 mg Alprazolam (Alprazolam 0.25 Mg Tablet) 0.125 mg PO QID PRN PRN Reason: Anxiety Last Admin: 04/03/23 15:34 Dose: 0.125 mg Alprazolam (Alprazolam 0.25 Mg Tablet) 0.25 mg PO BID@0830,1330 [facility] Last Admin: 04/04/23 13:54 Dose: 0.25 mg Artificial Tears (Artificial Tears 15 Ml Drops) 1 drop EYE-BOTH Q2H PRN PRN Reason: Dry Eyes Last Admin: 04/03/23 10:21 Dose: 1 drop Bisacodyl (Bisacodyl 10 Mg Supp.Rect) 10 mg [place] DAILY PRN PRN Reason: Constipation Clotrimazole (Clotrimazole 1 % Cream 15 Gm Tube) 1 appl TOPICAL BID TAZ; Protocol Last Admin: 04/04/23 08:08 Dose: Not Given Divalproex Sodium (Divalproex Sodium 250 Mg Tablet.Dr) 750 mg PO BEDTIME TAZ Last Admin: 04/03/23 21:08 Dose: 750 mg Guaifenesin/Dextromethorphan (Guaifenesin Dm 100/10/5 Ml 5 Ml Syrup) 5 ml PO Q4H PRN PRN Reason: cough Last Admin: 03/27/23 22:10 Dose: 5 ml Hydrocortisone (Hydrocortisone 1 % Cream 28.35 Gm Tube) 1 appl TOPICAL BID PRN; Protocol PRN Reason: itchy feet Last Admin: 04/01/23 21:38 Dose: 1 appl Hydroxyzine HCl (Hydroxyzine Hcl 25 Mg Tablet) 25 mg PO Q4H PRN PRN Reason: Anxiety Last Admin: 04/04/23 00:26 Dose: 25 mg Ibuprofen (Ibuprofen 600 Mg Tablet) 600 mg PO Q6H PRN PRN Reason: Pain, Moderate(Pain Scale 4-6) Last Admin: 04/03/23 02:40 Dose: 600 mg Lidocaine (Lidocaine 5 % Ointment 35 Gm) 1 appl TOPICAL Q6H PRN; Protocol PRN Reason: pain r foot Last Admin: 04/03/23 21:28 Dose: 1 appl Magnesium Hydroxide (Milk Of Magnesia 30 Ml Oral.Susp) 30 ml PO BID PRN PRN Reason: constipation, stomach/GI upset Last Admin: 03/21/23 16:10 Dose: 30 ml Nortriptyline HCl (Nortriptyline Hcl 25 Mg Capsule) 50 mg PO BEDTIME TAZ Last Admin: 04/03/23 21:07 Dose: 50 mg Nystatin (Nystatin Powder 15 Gm Bottle) 1 appl TOPICAL BID TAZ; Protocol Last Admin: 04/04/23 08:08 Dose: Not Given Olanzapine (Olanzapine 2.5 Mg Tablet) 2.5 mg PO Q4H PRN PRN Reason: anxiety/restlessness Last Admin: 03/30/23 00:02 Dose: 2.5 mg Olanzapine (Olanzapine 2.5 Mg Tablet) 2.5 mg PO TID TAZ Last Admin: 04/04/23 13:53 Dose: 2.5 mg Ondansetron HCl (Ondansetron Odt 4 Mg Tab.Rapdis) 4 mg TRANSLINGU Q6H PRN PRN Reason: Nausea and Vomiting Last Admin: 03/20/23 09:13 Dose: 4 mg Polyethylene Glycol (Polyethylene Glycol 3350 17 Gm Powd.Pack) 17 gm PO BID TAZ Last Admin: 04/04/23 08:06 Dose: 17 gm Propranolol HCl (Propranolol Hcl 20 Mg Tablet) 20 mg PO TID [facility]; Protocol Last Admin: 04/04/23 13:53 Dose: 20 mg Senna/Docusate Sodium (Sennosides/Docusate Sodium Tablet) 2 tab PO BEDTIME TAZ Last Admin: 04/03/23 21:07 Dose: 2 tab Sodium Chloride (Sodium Chloride 0.65 % Nasal 44 Ml Sprbtl) 1 spray NOSTRIL-B Q1H PRN PRN Reason: Nasal Congestion Last Admin: 02/26/23 21:14 Dose: 1 spray Allergies Allergies Allergy/AdvReac Type Severity Reaction Status Date / Time fentanyl [FENTANYL] Allergy Intermediate unknown Verified 04/08/22 07:00 Assessment & Plan Assessment & Plan (1) Major depressive disorder, recurrent severe without psychotic features: Status: Acute Code(s): F33.2 - Major depressive disorder, recurrent severe without psychotic features (2) Cognitive and neurobehavioral dysfunction following brain injury: Status: Acute Code(s): G31.89 - Other specified degenerative diseases of nervous system; F09 - Unspecified mental disorder due to known physiological condition; S06.9X9S - Unspecified intracranial injury with loss of consciousness of unspecified duration, sequela (3) Personality disorder in adult: Status: Acute Code(s): F60.9 - Personality disorder, unspecified Plan ALPRAZOLAM 0.25 B.I.D. 0.5 BEDTIME OLANZAPINE ALSO 3 TIMES A DAY CONTINUE DEPAKOTE START PROPRANOLOL 10 T.I.D. THE PATIENT CONFRONTED REGARDING NEGATIVE TOXIC BEHAVIOR DIFFICULTY COPING AND NEGATIVE COMPLICATIONS TO HIS LIFE IF CONTINUE VERBALLY AGGRESSIVE AND TOXIC BEHAVIOR WITH OTHERS DEVALUATION ENCOURAGE REFLECTION STRESS MANAGEMENT COPING STRATEGIES 03/07 continue same treatment 03/08 continue same treatment 03/09 continue same treatment 03/10/23 Lower alprazolam .125 mg bid hold afternoon olanzapine secondary to slurring oversedation cont propranolol 03/11/23 Pt doing better less sedated struggles to maintain pos attitude 03/13 continue tx. 03/14: stable presentation, no change in mgmt. 03/15: appears sedated. no change in mgmt today. to F/U with attending tomorrow re meds for anxiety. 03/16 continue tx. 03/17 continue tx. 03/18 continue tx. 03/19 continue tx. 03/22 continue tx. 03/23 continue tx. 03/24/2023 Continue treatment plan discharge planning 03/25/2023 Continue plan of care 03/26/2023 Continued discharge planning needs much reassurance 03/27 continue tx. 03/28: Continue treatment plan. 03/29: Continue current treatment plan 03/30 continue tx. 03/31 continue tx. 04/02 no changes in treatment 04/04/23 Continue current regime and plan of care Reason for continued inpatient stay Substantial Risk for: rapid decompensation Time Spent With Patient Time: Total time managing care of this patient today ____ minutes.
[2023-04-04 18:00] VITALS: BP 129/82; PULSE 70; RESP 18; TEMP 35.9; O2SAT 95
[2023-04-04] MEDS: ALPRAZolam 0.5 MG TABLET PO (20:26)
[2023-04-04] MEDS: Sennosides/Docusate Sodium TABLET 2 TAB PO (21:21)
[2023-04-04] MEDS: Divalproex Sodium 250 MG TABLET.DR 750 MG PO (21:22)
[2023-04-04] MEDS: Nortriptyline HCl 25 MG CAPSULE 50 MG PO (21:22)
[2023-04-04] MEDS: Nystatin Powder 15 GM BOTTLE 1 APPL TOPICAL (21:27)
[2023-04-04] MEDS: Lidocaine 5 % Ointment 35 GM 1 APPL TOPICAL (21:31)
[2023-04-05 08:50] VITALS: BP 166/90; PULSE 75; RESP 16; TEMP 36; O2SAT 96
[2023-04-05] MEDS: OLANZapine 2.5 MG TABLET PO ×3 (08:58→21:28)
[2023-04-05] MEDS: ALPRAZolam 0.25 MG TABLET PO ×2 (08:59→13:52)
[2023-04-05] MEDS: Propranolol HCL 20 MG TABLET PO ×3 (08:59→21:33)
[2023-04-05] MEDS: Lidocaine 5 % Ointment 35 GM 1 APPL TOPICAL ×2 (13:27→21:46)
[2023-04-05 15:23] VITALS: BP 130/82; PULSE 75; RESP 18
[2023-04-05 18:00] VITALS: BP 144/85; PULSE 66; RESP 16; TEMP 36.3; O2SAT 95
--- NOTE | 2023-04-05 19:08 | HO.PSYCHPN ---
Subjective Subjective Date of Service: 04/05/23 Reason For Visit: Depression hopelessness irritability Interim History: Pt seen reviewed with the team. Samanta talked today of his concerns about lack of communication with [facility] regarding his half-way he is scheduled to move into. On Thursday, it was eight months since I have been here, eight months of my life, gone. Medication Compliance: Yes Side effects from medications: No Attending Groups: Yes Review of Systems Acute medical concerns: No Medical Review of Systems: unchanged Mental Status Exam Mental Status Exam Patient Appearance: Appropriate Patient Orientation: Person and Situation Level of Consciousness: Awake and Appropriate Patient Behavior: Guarded and Passive Mood Description: Withdrawn Affect Description: Constricted Patient Cognition Impaired: Yes Ability to Follow Directions: Good Speech Pattern: Clear Hallucinations: None Delusions: Not Present Thought Process: Distracted Thought Content: positive for [employer] and positive for Circumstantial Judgement: Fair Diagnostics Vital Signs (24Hr): Vital Signs - 24 hr 04/05/23 08:50 04/05/23 15:23 Temperature 96.8 F Pulse Rate 75 75 Respiratory Rate 16 18 Blood Pressure 166/90 H 130/82 Pulse Oximetry 96 Oxygen Delivery Method Room Air BMI result Body Mass Index 30.2 Labs 03/04/23 07:45 03/04/23 07:45 Imaging Radiology Impressions: ITS Impressions Chest X-Ray 10/20/22 15:45 IMPRESSION: 1. Low lung volumes with bibasilar linear disc atelectasis versus scarring. 2. No airspace consolidation or effusion. Head CT 11/08/22 12:29 IMPRESSION: No acute intracranial hemorrhage or territorial infarction. Stable chronic postoperative changes with gliosis and encephalomalacia in the right frontal and right temporal lobes. Ex vacuo dilatation of the ventricles and diffuse parenchymal volume loss. Right-sided craniotomy changes. Chest X-Ray 11/12/22 10:32 IMPRESSION: Hypoexpanded lungs with bibasilar platelike atelectasis. Brain MRI 11/12/22 13:15 IMPRESSION: 1. No demonstrated acute intracranial abnormalities. 2. Chronic encephalomalacia of the right temporal, right frontal, and left occipital lobes. Small regions of chronic encephalomalacia in the parasagittal aspects of the bilateral parietal lobes. Moderate underlying microangiopathy and generalized cerebral volume loss. Chest X-Ray 11/14/22 15:52 IMPRESSION: Low lung volumes, bibasilar subsegmental atelectasis and slight elevation of the right hemidiaphragm similar to previous exam. Modified Barium Swallow 11/21/22 15:11 IMPRESSION: Laryngeal penetration on several occasions but no laryngeal aspiration. Mild retention of solid food in the valleculae which cleared with subsequent oral administration of water or thin barium. Correlate with speech therapy results. Orbit CT 01/23/23 14:05 IMPRESSION: - No definite significant intraorbital soft tissue findings to assessment is limited on a noncontrast CT of the orbits. No retrobulbar mass lesions and no cellulitic changes appreciated. - There are large fluid levels within the left maxillary sinus and within the right frontal sinus the can be correlated for clinical signs of acute sinusitis. - A peripherally ossified structure extending from the dorsal margin of the right nasolacrimal duct into the right maxillary sinus is stable when compared to examinations dated back to 08/24/2008 favoring a benign etiology. Cervical Spine CT 02/14/23 22:15 IMPRESSION: 1. No acute intracranial abnormality. Stable postsurgical changes with right frontotemporal encephalomalacia, global volume loss, and extraocular dilatation of the right lateral ventricle. 2. No cervical spine fracture or traumatic malalignment. Head CT 02/14/23 22:15 IMPRESSION: 1. No acute intracranial abnormality. Stable postsurgical changes with right frontotemporal encephalomalacia, global volume loss, and extraocular dilatation of the right lateral ventricle. 2. No cervical spine fracture or traumatic malalignment. Hip/Pelvis X-Ray 02/14/23 22:25 IMPRESSION: Moderate degenerative changes of the right hip with loss of superolateral joint space. Similar chronic posttraumatic deformity of the right femoral neck with chronic foreshortening. Status post left total hip arthroplasty in unchanged alignment however the lack of a crosstable lateral view limits assessment for dislocation. No acute fracture or dislocation appreciated on the available views. Foot X-Ray 02/22/23 13:50 IMPRESSION: * Postsurgical changes of arthrodesis first metatarsophalangeal joint. * There is developed large osteophyte from the head of the first metatarsal protruding laterally abutting the head of the second metatarsal. This might be the source of patient's pain. * Underlying degenerative osteoarthritis. Foot X-Ray 02/23/23 14:11 IMPRESSION: Mild degenerative changes MTP, PIP and DIP joints. No visible acute fracture or dislocation seen. Medications Medications Current Medications Acetaminophen (Acetaminophen 325 Mg Tablet) 975 mg PO Q6H PRN PRN Reason: Headache/Pain Mild Scale (1-3) Last Admin: 04/04/23 21:38 Dose: 975 mg Alprazolam (Alprazolam 0.25 Mg Tablet) 0.125 mg PO QID PRN PRN Reason: Anxiety Last Admin: 04/03/23 15:34 Dose: 0.125 mg Alprazolam (Alprazolam 0.25 Mg Tablet) 0.25 mg PO BID@0830,1330 TAZ Last Admin: 04/05/23 13:52 Dose: 0.25 mg Artificial Tears (Artificial Tears 15 Ml Drops) 1 drop EYE-BOTH Q2H PRN PRN Reason: Dry Eyes Last Admin: 04/03/23 10:21 Dose: 1 drop Bisacodyl (Bisacodyl 10 Mg Supp.Rect) 10 mg [place] DAILY PRN PRN Reason: Constipation Clotrimazole (Clotrimazole 1 % Cream 15 Gm Tube) 1 appl TOPICAL BID TAZ; Protocol Last Admin: 04/05/23 09:02 Dose: Not Given Divalproex Sodium (Divalproex Sodium 250 Mg Tablet.Dr) 750 mg PO BEDTIME TAZ Last Admin: 04/04/23 21:22 Dose: 750 mg Guaifenesin/Dextromethorphan (Guaifenesin Dm 100/10/5 Ml 5 Ml Syrup) 5 ml PO Q4H PRN PRN Reason: cough Last Admin: 03/27/23 22:10 Dose: 5 ml Hydrocortisone (Hydrocortisone 1 % Cream 28.35 Gm Tube) 1 appl TOPICAL BID PRN; Protocol PRN Reason: itchy feet Last Admin: 04/01/23 21:38 Dose: 1 appl Hydroxyzine HCl (Hydroxyzine Hcl 25 Mg Tablet) 25 mg PO Q4H PRN PRN Reason: Anxiety Last Admin: 04/04/23 23:07 Dose: 25 mg Ibuprofen (Ibuprofen 600 Mg Tablet) 600 mg PO Q6H PRN PRN Reason: Pain, Moderate(Pain Scale 4-6) Last Admin: 04/03/23 02:40 Dose: 600 mg Lidocaine (Lidocaine 5 % Ointment 35 Gm) 1 appl TOPICAL Q6H PRN; Protocol PRN Reason: pain r foot Last Admin: 04/05/23 13:27 Dose: 1 appl Magnesium Hydroxide (Milk Of Magnesia 30 Ml Oral.Susp) 30 ml PO BID PRN PRN Reason: constipation, stomach/GI upset Last Admin: 03/21/23 16:10 Dose: 30 ml Nortriptyline HCl (Nortriptyline Hcl 25 Mg Capsule) 50 mg PO BEDTIME ATZ Last Admin: 04/04/23 21:22 Dose: 50 mg Nystatin (Nystatin Powder 15 Gm Bottle) 1 appl TOPICAL BID TAZ; Protocol Last Admin: 04/05/23 09:02 Dose: Not Given Olanzapine (Olanzapine 2.5 Mg Tablet) 2.5 mg PO Q4H PRN PRN Reason: anxiety/restlessness Last Admin: 03/30/23 00:02 Dose: 2.5 mg Olanzapine (Olanzapine 2.5 Mg Tablet) 2.5 mg PO TID TAZ Last Admin: 04/05/23 15:26 Dose: 2.5 mg Ondansetron HCl (Ondansetron Odt 4 Mg Tab.Rapdis) 4 mg TRANSLINGU Q6H PRN PRN Reason: Nausea and Vomiting Last Admin: 03/20/23 09:13 Dose: 4 mg Polyethylene Glycol (Polyethylene Glycol 3350 17 Gm Powd.Pack) 17 gm PO BID [facility] Last Admin: 04/05/23 09:03 Dose: Not Given Propranolol HCl (Propranolol Hcl 20 Mg Tablet) 20 mg PO TID [facility]; Protocol Last Admin: 04/05/23 15:25 Dose: 20 mg Senna/Docusate Sodium (Sennosides/Docusate Sodium Tablet) 2 tab PO BEDTIME TAZ Last Admin: 04/04/23 21:21 Dose: 1 tab Sodium Chloride (Sodium Chloride 0.65 % Nasal 44 Ml Sprbtl) 1 spray NOSTRIL-B Q1H PRN PRN Reason: Nasal Congestion Last Admin: 02/26/23 21:14 Dose: 1 spray Allergies Allergies Allergy/AdvReac Type Severity Reaction Status Date / Time fentanyl [FENTANYL] Allergy Intermediate unknown Verified 04/08/22 07:00 Assessment & Plan Assessment & Plan (1) Major depressive disorder, recurrent severe without psychotic features: Status: Acute Code(s): F33.2 - Major depressive disorder, recurrent severe without psychotic features (2) Cognitive and neurobehavioral dysfunction following brain injury: Status: Acute Code(s): G31.89 - Other specified degenerative diseases of nervous system; F09 - Unspecified mental disorder due to known physiological condition; S06.9X9S - Unspecified intracranial injury with loss of consciousness of unspecified duration, sequela (3) Personality disorder in adult: Status: Acute Code(s): F60.9 - Personality disorder, unspecified Plan ALPRAZOLAM 0.25 B.I.D. 0.5 BEDTIME OLANZAPINE ALSO 3 TIMES A DAY CONTINUE DEPAKOTE START PROPRANOLOL 10 T.I.D. THE PATIENT CONFRONTED REGARDING NEGATIVE TOXIC BEHAVIOR DIFFICULTY COPING AND NEGATIVE COMPLICATIONS TO HIS LIFE IF CONTINUE VERBALLY AGGRESSIVE AND TOXIC BEHAVIOR WITH OTHERS DEVALUATION ENCOURAGE REFLECTION STRESS MANAGEMENT COPING STRATEGIES 03/07 continue same treatment 03/08 continue same treatment 03/09 continue same treatment 03/10/23 Lower alprazolam .125 mg bid hold afternoon olanzapine secondary to slurring oversedation cont propranolol 03/11/23 Pt doing better less sedated struggles to maintain pos attitude 03/13 continue tx. 03/14: stable presentation, no change in mgmt. 03/15: appears sedated. no change in mgmt today. to F/U with attending tomorrow re meds for anxiety. 03/16 continue tx. 03/17 continue tx. 03/18 continue tx. 03/19 continue tx. 03/22 continue tx. 03/23 continue tx. 03/24/2023 Continue treatment plan discharge planning 03/25/2023 Continue plan of care 03/26/2023 Continued discharge planning needs much reassurance 03/27 continue tx. 03/28: Continue treatment plan. 03/29: Continue current treatment plan 03/30 continue tx. 03/31 continue tx. 04/02 no changes in treatment 04/04/23 Continue current regime and plan of care 04/05/23 Continue current regime and plan of care Reason for continued inpatient stay Substantial Risk for: rapid decompensation Time Spent With Patient Time: Total time managing care of this patient today ____ minutes.
[2023-04-05] MEDS: Divalproex Sodium 250 MG TABLET.DR 750 MG PO (21:27)
[2023-04-05] MEDS: Nortriptyline HCl 25 MG CAPSULE 50 MG PO (21:27)
[2023-04-05] MEDS: Sennosides/Docusate Sodium TABLET 2 TAB PO (21:29)
[2023-04-05] MEDS: ALPRAZolam 0.25 MG TABLET 0.125 MG PO (21:29)
[2023-04-05] MEDS: Acetaminophen 325 MG TABLET 975 MG PO (21:31)
[2023-04-05] MEDS: Clotrimazole 1 % Cream 15 GM TUBE 1 APPL TOPICAL (21:36)
[2023-04-05] MEDS: Latanoprost 0.005 % Ophth Sol 2.5 ML DROPS 1 DROP EYE-BOTH (21:45)
[2023-04-05] MEDS: Hydrocortisone 1 % Cream 28.35 GM TUBE 1 APPL TOPICAL (21:46)
[2023-04-06] MEDS: hydrOXYzine HCL 25 MG TABLET PO (00:32)
[2023-04-06] MEDS: Nystatin Powder 15 GM BOTTLE 1 APPL TOPICAL ×2 (00:52→21:17)
[2023-04-06 08:00] VITALS: BP 158/82; PULSE 70; RESP 16; TEMP 36; O2SAT 98
[2023-04-06] MEDS: ALPRAZolam 0.25 MG TABLET PO ×2 (09:31→13:19)
[2023-04-06] MEDS: Propranolol HCL 20 MG TABLET PO ×3 (09:31→21:17)
[2023-04-06] MEDS: OLANZapine 2.5 MG TABLET PO ×3 (09:31→21:16)
[2023-04-06] MEDS: polyethylene glycoL 3350 17 GM POWD.PACK PO (09:31)
[2023-04-06] MEDS: Artificial Tears 15 ML DROPS 1 DROP EYE-BOTH (12:45)
[2023-04-06 15:25] VITALS: BP 135/83; PULSE 69
[2023-04-06] MEDS: Sennosides/Docusate Sodium TABLET 2 TAB PO (21:15)
[2023-04-06] MEDS: Divalproex Sodium 250 MG TABLET.DR 750 MG PO (21:16)
[2023-04-06] MEDS: Nortriptyline HCl 25 MG CAPSULE 50 MG PO (21:17)
[2023-04-06] MEDS: Lidocaine 5 % Ointment 35 GM 1 APPL TOPICAL (21:24)
[2023-04-06] MEDS: Milk of Magnesia 30 ML ORAL.SUSP PO (21:24)
[2023-04-06 21:28] VITALS: BP 135/79; PULSE 63; RESP 18; TEMP 36.3; O2SAT 97
[2023-04-06] MEDS: Acetaminophen 325 MG TABLET 975 MG PO (21:58)
--- NOTE | 2023-04-06 23:29 | HO.PSYCHPN ---
Subjective Subjective Date of Service: 04/06/23 Reason For Visit: Depression hopelessness irritability Subjective Notes: Conditional Voluntary Healthcare Proxy: No Guardianship: No Interim History: Pt has been less labile still has difficulty in a quite stimulating reactive environment Tolerating increase olanzapine and alprazolam Mental Status Exam Mental Status Exam Patient Appearance: Appropriate Patient Orientation: Person and Situation Level of Consciousness: Awake and Appropriate Patient Behavior: Guarded and Passive Mood Description: Withdrawn Affect Description: Constricted Patient Cognition Impaired: Yes Ability to Follow Directions: Good Speech Pattern: Clear Hallucinations: None Delusions: Not Present Thought Process: Distracted Thought Content: positive for Intact, positive for Circumstantial and positive for Preoccupation Depressive Symptoms: Increased Anxiety and Increased Irritability Judgement: Fair Diagnostics Vital Signs (24Hr): Vital Signs - 24 hr 04/06/23 08:00 04/06/23 15:25 04/06/23 21:28 Temperature 96.8 F 97.4 F Pulse Rate 70 69 63 Respiratory Rate 16 18 Blood Pressure 158/82 H 135/83 135/79 Pulse Oximetry 98 97 Oxygen Delivery Method Room Air Room Air BMI result Body Mass Index 30.2 Labs 03/04/23 07:45 03/04/23 07:45 Imaging Radiology Impressions: ITS Impressions Chest X-Ray 10/20/22 15:45 IMPRESSION: 1. Low lung volumes with bibasilar linear disc atelectasis versus scarring. 2. No airspace consolidation or effusion. Head CT 11/08/22 12:29 IMPRESSION: No acute intracranial hemorrhage or territorial infarction. Stable chronic postoperative changes with gliosis and encephalomalacia in the right frontal and right temporal lobes. Ex vacuo dilatation of the ventricles and diffuse parenchymal volume loss. Right-sided craniotomy changes. Chest X-Ray 11/12/22 10:32 IMPRESSION: Hypoexpanded lungs with bibasilar platelike atelectasis. Brain MRI 11/12/22 13:15 IMPRESSION: 1. No demonstrated acute intracranial abnormalities. 2. Chronic encephalomalacia of the right temporal, right frontal, and left occipital lobes. Small regions of chronic encephalomalacia in the parasagittal aspects of the bilateral parietal lobes. Moderate underlying microangiopathy and generalized cerebral volume loss. Chest X-Ray 11/14/22 15:52 IMPRESSION: Low lung volumes, bibasilar subsegmental atelectasis and slight elevation of the right hemidiaphragm similar to previous exam. Modified Barium Swallow 11/21/22 15:11 IMPRESSION: Laryngeal penetration on several occasions but no laryngeal aspiration. Mild retention of solid food in the valleculae which cleared with subsequent oral administration of water or thin barium. Correlate with speech therapy results. Orbit CT 01/23/23 14:05 IMPRESSION: - No definite significant intraorbital soft tissue findings to assessment is limited on a noncontrast CT of the orbits. No retrobulbar mass lesions and no cellulitic changes appreciated. - There are large fluid levels within the left maxillary sinus and within the right frontal sinus the can be correlated for clinical signs of acute sinusitis. - A peripherally ossified structure extending from the dorsal margin of the right nasolacrimal duct into the right maxillary sinus is stable when compared to examinations dated back to 08/24/2008 favoring a benign etiology. Cervical Spine CT 02/14/23 22:15 IMPRESSION: 1. No acute intracranial abnormality. Stable postsurgical changes with right frontotemporal encephalomalacia, global volume loss, and extraocular dilatation of the right lateral ventricle. 2. No cervical spine fracture or traumatic malalignment. Head CT 02/14/23 22:15 IMPRESSION: 1. No acute intracranial abnormality. Stable postsurgical changes with right frontotemporal encephalomalacia, global volume loss, and extraocular dilatation of the right lateral ventricle. 2. No cervical spine fracture or traumatic malalignment. Hip/Pelvis X-Ray 02/14/23 22:25 IMPRESSION: Moderate degenerative changes of the right hip with loss of superolateral joint space. Similar chronic posttraumatic deformity of the right femoral neck with chronic foreshortening. Status post left total hip arthroplasty in unchanged alignment however the lack of a crosstable lateral view limits assessment for dislocation. No acute fracture or dislocation appreciated on the available views. Foot X-Ray 02/22/23 13:50 IMPRESSION: * Postsurgical changes of arthrodesis first metatarsophalangeal joint. * There is developed large osteophyte from the head of the first metatarsal protruding laterally abutting the head of the second metatarsal. This might be the source of patient's pain. * Underlying degenerative osteoarthritis. Foot X-Ray 02/23/23 14:11 IMPRESSION: Mild degenerative changes MTP, PIP and DIP joints. No visible acute fracture or dislocation seen. Medications Medications Current Medications Acetaminophen (Acetaminophen 325 Mg Tablet) 975 mg PO Q6H PRN PRN Reason: Headache/Pain Mild Scale (1-3) Last Admin: 04/06/23 21:58 Dose: 975 mg Alprazolam (Alprazolam 0.25 Mg Tablet) 0.125 mg PO QID PRN PRN Reason: Anxiety Last Admin: 04/05/23 21:29 Dose: 0.125 mg Alprazolam (Alprazolam 0.25 Mg Tablet) 0.25 mg PO BID@0830,1330 [facility] Last Admin: 04/06/23 13:19 Dose: 0.25 mg Artificial Tears (Artificial Tears 15 Ml Drops) 1 drop EYE-BOTH Q2H PRN PRN Reason: Dry Eyes Last Admin: 04/06/23 12:45 Dose: 1 drop Bisacodyl (Bisacodyl 10 Mg Supp.Rect) 10 mg [place] DAILY PRN PRN Reason: Constipation Clotrimazole (Clotrimazole 1 % Cream 15 Gm Tube) 1 appl TOPICAL BID TAZ; Protocol Last Admin: 04/06/23 21:20 Dose: Not Given Divalproex Sodium (Divalproex Sodium 250 Mg Tablet.Dr) 750 mg PO BEDTIME [facility] Last Admin: 04/06/23 21:16 Dose: 750 mg Guaifenesin/Dextromethorphan (Guaifenesin Dm 100/10/5 Ml 5 Ml Syrup) 5 ml PO Q4H PRN PRN Reason: cough Last Admin: 03/27/23 22:10 Dose: 5 ml Hydrocortisone (Hydrocortisone 1 % Cream 28.35 Gm Tube) 1 appl TOPICAL BID PRN; Protocol PRN Reason: itchy feet Last Admin: 04/05/23 21:46 Dose: 1 appl Hydroxyzine HCl (Hydroxyzine Hcl 25 Mg Tablet) 25 mg PO Q4H PRN PRN Reason: Anxiety Last Admin: 04/06/23 00:32 Dose: 25 mg Ibuprofen (Ibuprofen 600 Mg Tablet) 600 mg PO Q6H PRN PRN Reason: Pain, Moderate(Pain Scale 4-6) Last Admin: 04/03/23 02:40 Dose: 600 mg Lidocaine (Lidocaine 5 % Ointment 35 Gm) 1 appl TOPICAL Q6H PRN; Protocol PRN Reason: pain r foot Last Admin: 04/06/23 21:24 Dose: 1 appl Magnesium Hydroxide (Milk Of Magnesia 30 Ml Oral.Susp) 30 ml PO BID PRN PRN Reason: constipation, stomach/GI upset Last Admin: 04/06/23 21:24 Dose: 30 ml Nortriptyline HCl (Nortriptyline Hcl 25 Mg Capsule) 50 mg PO BEDTIME TAZ Last Admin: 04/06/23 21:17 Dose: 50 mg Nystatin (Nystatin Powder 15 Gm Bottle) 1 appl TOPICAL BID [facility]; Protocol Last Admin: 04/06/23 21:17 Dose: 1 appl Olanzapine (Olanzapine 2.5 Mg Tablet) 2.5 mg PO Q4H PRN PRN Reason: anxiety/restlessness Last Admin: 03/30/23 00:02 Dose: 2.5 mg Olanzapine (Olanzapine 2.5 Mg Tablet) 2.5 mg PO TID [facility] Last Admin: 04/06/23 21:16 Dose: 2.5 mg Ondansetron HCl (Ondansetron Odt 4 Mg Tab.Rapdis) 4 mg TRANSLINGU Q6H PRN PRN Reason: Nausea and Vomiting Last Admin: 03/20/23 09:13 Dose: 4 mg Polyethylene Glycol (Polyethylene Glycol 3350 17 Gm Powd.Pack) 17 gm PO BID [facility] Last Admin: 04/06/23 21:20 Dose: Not Given Propranolol HCl (Propranolol Hcl 20 Mg Tablet) 20 mg PO TID [facility]; Protocol Last Admin: 04/06/23 21:17 Dose: 20 mg Senna/Docusate Sodium (Sennosides/Docusate Sodium Tablet) 2 tab PO BEDTIME [facility] Last Admin: 04/06/23 21:15 Dose: 1 tab Sodium Chloride (Sodium Chloride 0.65 % Nasal 44 Ml Sprbtl) 1 spray NOSTRIL-B Q1H PRN PRN Reason: Nasal Congestion Last Admin: 02/26/23 21:14 Dose: 1 spray Allergies Allergies Allergy/AdvReac Type Severity Reaction Status Date / Time fentanyl [FENTANYL] Allergy Intermediate unknown Verified 04/08/22 07:00 Assessment & Plan Assessment & Plan (1) Major depressive disorder, recurrent severe without psychotic features: Status: Acute Code(s): F33.2 - Major depressive disorder, recurrent severe without psychotic features (2) Cognitive and neurobehavioral dysfunction following brain injury: Status: Acute Code(s): G31.89 - Other specified degenerative diseases of nervous system; F09 - Unspecified mental disorder due to known physiological condition; S06.9X9S - Unspecified intracranial injury with loss of consciousness of unspecified duration, sequela (3) Personality disorder in adult: Status: Acute Code(s): F60.9 - Personality disorder, unspecified Plan ALPRAZOLAM 0.25 B.I.D. 0.5 BEDTIME OLANZAPINE ALSO 3 TIMES A DAY CONTINUE DEPAKOTE START PROPRANOLOL 10 T.I.D. THE PATIENT CONFRONTED REGARDING NEGATIVE TOXIC BEHAVIOR DIFFICULTY COPING AND NEGATIVE COMPLICATIONS TO HIS LIFE IF CONTINUE VERBALLY AGGRESSIVE AND TOXIC BEHAVIOR WITH OTHERS DEVALUATION ENCOURAGE REFLECTION STRESS MANAGEMENT COPING STRATEGIES 03/07 continue same treatment 03/08 continue same treatment 03/09 continue same treatment 03/10/23 Lower alprazolam .125 mg bid hold afternoon olanzapine secondary to slurring oversedation cont propranolol 03/11/23 Pt doing better less sedated struggles to maintain pos attitude 03/13 continue tx. 03/14: stable presentation, no change in mgmt. 03/15: appears sedated. no change in mgmt today. to F/U with attending tomorrow re meds for anxiety. 03/16 continue tx. 03/17 continue tx. 03/18 continue tx. 03/19 continue tx. 03/22 continue tx. 03/23 continue tx. 03/24/2023 Continue treatment plan discharge planning 03/25/2023 Continue plan of care 03/26/2023 Continued discharge planning needs much reassurance 03/27 continue tx. 03/28: Continue treatment plan. 03/29: Continue current treatment plan 03/30 continue tx. 03/31 continue tx. 04/02 no changes in treatment 04/03/2023 Patient more reactive belligerent kicked out at another person and was reactive with staff and aggressive. Seems much more triggered by stimulation difficulty reflecting discussed with patient increasing olanzapine alprazolam for behavioral control 04/07/23 Cont depakote olanzpine alprazolam encourage strategies to deal with triggers d/c planning Reason for continued inpatient stay Substantial Risk for: inability to function and rapid decompensation Time Spent With Patient Time: Total time managing care of this patient today ____ minutes.
[2023-04-07] MEDS: ALPRAZolam 0.25 MG TABLET 0.125 MG PO (03:37)
[2023-04-07] MEDS: Ibuprofen 600 MG TABLET PO (03:39)
[2023-04-07 07:30] VITALS: BP 158/88; PULSE 69; RESP 18; TEMP 35.9; O2SAT 94
[2023-04-07] MEDS: OLANZapine 2.5 MG TABLET PO ×3 (08:54→22:02)
[2023-04-07] MEDS: Propranolol HCL 20 MG TABLET PO ×3 (08:54→22:04)
[2023-04-07] MEDS: polyethylene glycoL 3350 17 GM POWD.PACK PO (08:54)
[2023-04-07] MEDS: ALPRAZolam 0.25 MG TABLET PO ×2 (08:54→13:57)
[2023-04-07] MEDS: Acetaminophen 325 MG TABLET 975 MG PO (08:59)
[2023-04-07] MEDS: Nystatin Powder 15 GM BOTTLE 1 APPL TOPICAL ×2 (15:48→22:18)
[2023-04-07] MEDS: Clotrimazole 1 % Cream 15 GM TUBE 1 APPL TOPICAL ×2 (15:48→22:18)
--- NOTE | 2023-04-07 17:07 | HO.PSYCHPN ---
Subjective Subjective Date of Service: 04/07/23 Reason For Visit: Depression hopelessness irritability Subjective Notes: Conditional Voluntary Healthcare Proxy: No Guardianship: No Interim History: Patient has been increasingly depressed irritable dysphoric and reactive. Feels overwhelmed ruminating on the the past multiple mistakes difficulty dealing with anger periods of hopelessness helplessness Medication Compliance: Yes Side effects from medications: No Review of Systems Acute medical concerns: No Mental Status Exam Mental Status Exam Patient Appearance: Appropriate Patient Orientation: Person and Situation Level of Consciousness: Awake and Appropriate Patient Behavior: Guarded, Passive and Anxious Mood Description: Withdrawn, Depressed, Anxious and Angry Affect Description: Constricted, Depressed and Angry Patient Cognition Impaired: Yes Ability to Follow Directions: Good Speech Pattern: Clear Hallucinations: None Delusions: Not Present Thought Process: Distracted Thought Content: positive for Intact, positive for Circumstantial and positive for Preoccupation Depressive Symptoms: Increased Anxiety and Increased Irritability Judgement: Fair Diagnostics Vital Signs (24Hr): Vital Signs - 24 hr 04/06/23 21:28 04/07/23 07:30 Temperature 97.4 F 96.6 F L Pulse Rate 63 69 Respiratory Rate 18 18 Blood Pressure 135/79 158/88 H Pulse Oximetry 97 94 Oxygen Delivery Method Room Air Room Air BMI result Body Mass Index 30.2 Labs 03/04/23 07:45 03/04/23 07:45 Imaging Radiology Impressions: ITS Impressions Chest X-Ray 10/20/22 15:45 IMPRESSION: 1. Low lung volumes with bibasilar linear disc atelectasis versus scarring. 2. No airspace consolidation or effusion. Head CT 11/08/22 12:29 IMPRESSION: No acute intracranial hemorrhage or territorial infarction. Stable chronic postoperative changes with gliosis and encephalomalacia in the right frontal and right temporal lobes. Ex vacuo dilatation of the ventricles and diffuse parenchymal volume loss. Right-sided craniotomy changes. Chest X-Ray 11/12/22 10:32 IMPRESSION: Hypoexpanded lungs with bibasilar platelike atelectasis. Brain MRI 11/12/22 13:15 IMPRESSION: 1. No demonstrated acute intracranial abnormalities. 2. Chronic encephalomalacia of the right temporal, right frontal, and left occipital lobes. Small regions of chronic encephalomalacia in the parasagittal aspects of the bilateral parietal lobes. Moderate underlying microangiopathy and generalized cerebral volume loss. Chest X-Ray 11/14/22 15:52 IMPRESSION: Low lung volumes, bibasilar subsegmental atelectasis and slight elevation of the right hemidiaphragm similar to previous exam. Modified Barium Swallow 11/21/22 15:11 IMPRESSION: Laryngeal penetration on several occasions but no laryngeal aspiration. Mild retention of solid food in the valleculae which cleared with subsequent oral administration of water or thin barium. Correlate with speech therapy results. Orbit CT 01/23/23 14:05 IMPRESSION: - No definite significant intraorbital soft tissue findings to assessment is limited on a noncontrast CT of the orbits. No retrobulbar mass lesions and no cellulitic changes appreciated. - There are large fluid levels within the left maxillary sinus and within the right frontal sinus the can be correlated for clinical signs of acute sinusitis. - A peripherally ossified structure extending from the dorsal margin of the right nasolacrimal duct into the right maxillary sinus is stable when compared to examinations dated back to 08/24/2008 favoring a benign etiology. Cervical Spine CT 02/14/23 22:15 IMPRESSION: 1. No acute intracranial abnormality. Stable postsurgical changes with right frontotemporal encephalomalacia, global volume loss, and extraocular dilatation of the right lateral ventricle. 2. No cervical spine fracture or traumatic malalignment. Head CT 02/14/23 22:15 IMPRESSION: 1. No acute intracranial abnormality. Stable postsurgical changes with right frontotemporal encephalomalacia, global volume loss, and extraocular dilatation of the right lateral ventricle. 2. No cervical spine fracture or traumatic malalignment. Hip/Pelvis X-Ray 02/14/23 22:25 IMPRESSION: Moderate degenerative changes of the right hip with loss of superolateral joint space. Similar chronic posttraumatic deformity of the right femoral neck with chronic foreshortening. Status post left total hip arthroplasty in unchanged alignment however the lack of a crosstable lateral view limits assessment for dislocation. No acute fracture or dislocation appreciated on the available views. Foot X-Ray 02/22/23 13:50 IMPRESSION: * Postsurgical changes of arthrodesis first metatarsophalangeal joint. * There is developed large osteophyte from the head of the first metatarsal protruding laterally abutting the head of the second metatarsal. This might be the source of patient's pain. * Underlying degenerative osteoarthritis. Foot X-Ray 02/23/23 14:11 IMPRESSION: Mild degenerative changes MTP, PIP and DIP joints. No visible acute fracture or dislocation seen. Medications Medications Current Medications Acetaminophen (Acetaminophen 325 Mg Tablet) 975 mg PO Q6H PRN PRN Reason: Headache/Pain Mild Scale (1-3) Last Admin: 04/07/23 08:59 Dose: 975 mg Alprazolam (Alprazolam 0.25 Mg Tablet) 0.125 mg PO QID PRN PRN Reason: Anxiety Last Admin: 04/07/23 03:37 Dose: 0.125 mg Alprazolam (Alprazolam 0.25 Mg Tablet) 0.25 mg PO BID@0830,1330 TAZ Last Admin: 04/07/23 13:57 Dose: 0.25 mg Alprazolam (Alprazolam 0.25 Mg Tablet) 0.25 mg PO BEDTIME PRN PRN Reason: Insomnia Alprazolam (Alprazolam 0.5 Mg Tablet) 0.5 mg PO BEDTIME TAZ Artificial Tears (Artificial Tears 15 Ml Drops) 1 drop EYE-BOTH Q2H PRN PRN Reason: Dry Eyes Last Admin: 04/06/23 12:45 Dose: 1 drop Bisacodyl (Bisacodyl 10 Mg Supp.Rect) 10 mg [place] DAILY PRN PRN Reason: Constipation Clotrimazole (Clotrimazole 1 % Cream 15 Gm Tube) 1 appl TOPICAL BID TAZ; Protocol Last Admin: 04/07/23 15:48 Dose: 1 appl Divalproex Sodium (Divalproex Sodium 250 Mg Tablet.Dr) 750 mg PO BEDTIME TAZ Last Admin: 04/06/23 21:16 Dose: 750 mg Guaifenesin/Dextromethorphan (Guaifenesin Dm 100/10/5 Ml 5 Ml Syrup) 5 ml PO Q4H PRN PRN Reason: cough Last Admin: 03/27/23 22:10 Dose: 5 ml Hydrocortisone (Hydrocortisone 1 % Cream 28.35 Gm Tube) 1 appl TOPICAL BID PRN; Protocol PRN Reason: itchy feet Last Admin: 04/05/23 21:46 Dose: 1 appl Hydroxyzine HCl (Hydroxyzine Hcl 25 Mg Tablet) 25 mg PO Q4H PRN PRN Reason: Anxiety Last Admin: 04/06/23 00:32 Dose: 25 mg Ibuprofen (Ibuprofen 600 Mg Tablet) 600 mg PO Q6H PRN PRN Reason: Pain, Moderate(Pain Scale 4-6) Last Admin: 04/07/23 03:39 Dose: 600 mg Lidocaine (Lidocaine 5 % Ointment 35 Gm) 1 appl TOPICAL Q6H PRN; Protocol PRN Reason: pain r foot Last Admin: 04/06/23 21:24 Dose: 1 appl Magnesium Hydroxide (Milk Of Magnesia 30 Ml Oral.Susp) 30 ml PO BID PRN PRN Reason: constipation, stomach/GI upset Last Admin: 04/06/23 21:24 Dose: 30 ml Nortriptyline HCl (Nortriptyline Hcl 25 Mg Capsule) 50 mg PO BEDTIME TAZ Last Admin: 04/06/23 21:17 Dose: 50 mg Nystatin (Nystatin Powder 15 Gm Bottle) 1 appl TOPICAL BID TAZ; Protocol Last Admin: 04/07/23 15:48 Dose: 1 appl Olanzapine (Olanzapine 2.5 Mg Tablet) 2.5 mg PO Q4H PRN PRN Reason: anxiety/restlessness Last Admin: 03/30/23 00:02 Dose: 2.5 mg Olanzapine (Olanzapine 2.5 Mg Tablet) 2.5 mg PO TID TAZ Last Admin: 04/07/23 15:46 Dose: 2.5 mg Ondansetron HCl (Ondansetron Odt 4 Mg Tab.Rapdis) 4 mg TRANSLINGU Q6H PRN PRN Reason: Nausea and Vomiting Last Admin: 03/20/23 09:13 Dose: 4 mg Polyethylene Glycol (Polyethylene Glycol 3350 17 Gm Powd.Pack) 17 gm PO BID TAZ Last Admin: 04/07/23 08:54 Dose: 17 gm Propranolol HCl (Propranolol Hcl 20 Mg Tablet) 20 mg PO TID TAZ; Protocol Last Admin: 04/07/23 15:45 Dose: 20 mg Senna/Docusate Sodium (Sennosides/Docusate Sodium Tablet) 2 tab PO BEDTIME TAZ Last Admin: 04/06/23 21:15 Dose: 1 tab Sodium Chloride (Sodium Chloride 0.65 % Nasal 44 Ml Sprbtl) 1 spray NOSTRIL-B Q1H PRN PRN Reason: Nasal Congestion Last Admin: 02/26/23 21:14 Dose: 1 spray Allergies Allergies Allergy/AdvReac Type Severity Reaction Status Date / Time fentanyl [FENTANYL] Allergy Intermediate unknown Verified 04/08/22 07:00 Assessment & Plan Assessment & Plan (1) Major depressive disorder, recurrent severe without psychotic features: Status: Acute Code(s): F33.2 - Major depressive disorder, recurrent severe without psychotic features (2) Cognitive and neurobehavioral dysfunction following brain injury: Status: Acute Code(s): G31.89 - Other specified degenerative diseases of nervous system; F09 - Unspecified mental disorder due to known physiological condition; S06.9X9S - Unspecified intracranial injury with loss of consciousness of unspecified duration, sequela (3) Personality disorder in adult: Status: Acute Code(s): F60.9 - Personality disorder, unspecified Plan ALPRAZOLAM 0.25 B.I.D. 0.5 BEDTIME OLANZAPINE ALSO 3 TIMES A DAY CONTINUE DEPAKOTE START PROPRANOLOL 10 T.I.D. THE PATIENT CONFRONTED REGARDING NEGATIVE TOXIC BEHAVIOR DIFFICULTY COPING AND NEGATIVE COMPLICATIONS TO HIS LIFE IF CONTINUE VERBALLY AGGRESSIVE AND TOXIC BEHAVIOR WITH OTHERS DEVALUATION ENCOURAGE REFLECTION STRESS MANAGEMENT COPING STRATEGIES 03/07 continue same treatment 03/08 continue same treatment 03/09 continue same treatment 03/10/23 Lower alprazolam .125 mg bid hold afternoon olanzapine secondary to slurring oversedation cont propranolol 03/11/23 Pt doing better less sedated struggles to maintain pos attitude 03/13 continue tx. 03/14: stable presentation, no change in mgmt. 03/15: appears sedated. no change in mgmt today. to F/U with attending tomorrow re meds for anxiety. 03/16 continue tx. 03/17 continue tx. 03/18 continue tx. 03/19 continue tx. 03/22 continue tx. 03/23 continue tx. 03/24/2023 Continue treatment plan discharge planning 03/25/2023 Continue plan of care 03/26/2023 Continued discharge planning needs much reassurance 03/27 continue tx. 03/28: Continue treatment plan. 03/29: Continue current treatment plan 03/30 continue tx. 03/31 continue tx. 04/02 no changes in treatment 04/03/2023 Patient more reactive belligerent kicked out at another person and was reactive with staff and aggressive. Seems much more triggered by stimulation difficulty reflecting discussed with patient increasing olanzapine alprazolam for behavioral control 04/07/23 Cont depakote olanzpine alprazolam encourage strategies to deal with triggers d/c planning Reason for continued inpatient stay Substantial Risk for: harm to self, inability to function and rapid decompensation Time Spent With Patient Time: Total time managing care of this patient today ____ minutes.
[2023-04-07 21:16] VITALS: BP 139/70; PULSE 61; RESP 18; TEMP 35.8; O2SAT 98
[2023-04-07 22:00] VITALS: BP 142/70; PULSE 62
[2023-04-07] MEDS: Divalproex Sodium 250 MG TABLET.DR 750 MG PO (22:01)
[2023-04-07] MEDS: Nortriptyline HCl 25 MG CAPSULE 75 MG PO (22:02)
[2023-04-07] MEDS: ALPRAZolam 0.5 MG TABLET PO (22:03)
[2023-04-07] MEDS: Sennosides/Docusate Sodium TABLET 2 TAB PO (22:03)
[2023-04-08] MEDS: ALPRAZolam 0.25 MG TABLET PO ×4 (04:40→21:19)
[2023-04-08] MEDS: Acetaminophen 325 MG TABLET 975 MG PO (04:40)
[2023-04-08] MEDS: Ibuprofen 600 MG TABLET PO (04:42)
[2023-04-08 08:00] VITALS: BP 138/84; PULSE 75; RESP 18; TEMP 35.7; O2SAT 97
[2023-04-08] MEDS: Propranolol HCL 20 MG TABLET PO ×3 (09:13→21:18)
[2023-04-08] MEDS: polyethylene glycoL 3350 17 GM POWD.PACK PO (09:13)
[2023-04-08] MEDS: OLANZapine 2.5 MG TABLET PO ×3 (09:13→21:18)
[2023-04-08] MEDS: Nystatin Powder 15 GM BOTTLE 1 APPL TOPICAL ×2 (09:14→21:26)
[2023-04-08] MEDS: Clotrimazole 1 % Cream 15 GM TUBE 1 APPL TOPICAL (09:14)
[2023-04-08 09:39] LABS: Ammonia 35 umol/L (13-55)
[2023-04-08 09:50] LABS: Valproate 54.2 mcg/mL (50.0-100.0)
[2023-04-08 18:00] VITALS: BP 143/87; PULSE 70; RESP 22; TEMP 36.1; O2SAT 97
[2023-04-08] MEDS: ALPRAZolam 0.5 MG TABLET PO (21:16)
[2023-04-08] MEDS: Divalproex Sodium 250 MG TABLET.DR 750 MG PO (21:16)
[2023-04-08] MEDS: Sennosides/Docusate Sodium TABLET 2 TAB PO (21:17)
[2023-04-08] MEDS: Nortriptyline HCl 25 MG CAPSULE 75 MG PO (21:18)
[2023-04-08] MEDS: Lidocaine 5 % Ointment 35 GM 1 APPL TOPICAL (21:31)
--- NOTE | 2023-04-08 21:50 | PC.NURSE ---
TW approached 0a
--- NOTE | 2023-04-08 21:50 | PC.NURSE ---
TW approached patient to obtain vitals at approximately 2030. Patient extended his L arm without speaking. As TW was applying BP cuff to arm patient suddenly yelled, Why are you fucking grabbing my arm , in a very loud and angry voice. It was startling and as I looked up at patient he had raised his right arm with his hand in a fist as if he was about to hit me. I quickly removed the BP cuff and walked away from the patient. His behavior was threatening and frightening. Patient continued to yell frightening some of his peers. Patient was then asked to remove himself from the mileu until he could calm down. As patient was going down franco to his room he continued shouting, I fucking hate you [id number]'. Another staff member took over patient and obtained vitals and administered medications. Patient remained in room.
--- NOTE | 2023-04-08 22:20 | HO.PSYCHPN ---
Subjective Subjective Date of Service: 04/08/23 Reason For Visit: Depression hopelessness irritability Subjective Notes: Conditional Voluntary Healthcare Proxy: No Guardianship: No Interim History: Patient has been depressed withdrawn does respond to reassurance nortriptyline increased to 75 mg discussed with patient increasing Depakote Medication Compliance: Yes Mental Status Exam Mental Status Exam Patient Appearance: Appropriate Patient Orientation: Person and Situation Level of Consciousness: Awake and Appropriate Patient Behavior: Guarded, Passive and Anxious Mood Description: Withdrawn, Depressed, Anxious and Angry Affect Description: Constricted, Depressed and Angry Patient Cognition Impaired: Yes Ability to Follow Directions: Good Speech Pattern: Clear Hallucinations: None Delusions: Not Present Thought Process: Distracted Thought Content: positive for Intact, positive for Circumstantial and positive for Preoccupation Depressive Symptoms: Increased Anxiety and Increased Irritability Judgement: Fair Diagnostics Vital Signs (24Hr): Vital Signs - 24 hr 04/08/23 08:00 04/08/23 18:00 Temperature 96.3 F L 96.9 F Pulse Rate 75 70 Respiratory Rate 18 22 H Blood Pressure 138/84 143/87 H Pulse Oximetry 97 97 Oxygen Delivery Method Room Air Room Air BMI result Body Mass Index 30.2 Labs 03/04/23 07:45 03/04/23 07:45 Labs: Laboratory Results - last 48 hr 04/08/23 04/08/23 09:26 09:26 Ammonia 35 Valproic Acid 54.2 Imaging Radiology Impressions: ITS Impressions Chest X-Ray 10/20/22 15:45 IMPRESSION: 1. Low lung volumes with bibasilar linear disc atelectasis versus scarring. 2. No airspace consolidation or effusion. Head CT 11/08/22 12:29 IMPRESSION: No acute intracranial hemorrhage or territorial infarction. Stable chronic postoperative changes with gliosis and encephalomalacia in the right frontal and right temporal lobes. Ex vacuo dilatation of the ventricles and diffuse parenchymal volume loss. Right-sided craniotomy changes. Chest X-Ray 11/12/22 10:32 IMPRESSION: Hypoexpanded lungs with bibasilar platelike atelectasis. Brain MRI 11/12/22 13:15 IMPRESSION: 1. No demonstrated acute intracranial abnormalities. 2. Chronic encephalomalacia of the right temporal, right frontal, and left occipital lobes. Small regions of chronic encephalomalacia in the parasagittal aspects of the bilateral parietal lobes. Moderate underlying microangiopathy and generalized cerebral volume loss. Chest X-Ray 11/14/22 15:52 IMPRESSION: Low lung volumes, bibasilar subsegmental atelectasis and slight elevation of the right hemidiaphragm similar to previous exam. Modified Barium Swallow 11/21/22 15:11 IMPRESSION: Laryngeal penetration on several occasions but no laryngeal aspiration. Mild retention of solid food in the valleculae which cleared with subsequent oral administration of water or thin barium. Correlate with speech therapy results. Orbit CT 01/23/23 14:05 IMPRESSION: - No definite significant intraorbital soft tissue findings to assessment is limited on a noncontrast CT of the orbits. No retrobulbar mass lesions and no cellulitic changes appreciated. - There are large fluid levels within the left maxillary sinus and within the right frontal sinus the can be correlated for clinical signs of acute sinusitis. - A peripherally ossified structure extending from the dorsal margin of the right nasolacrimal duct into the right maxillary sinus is stable when compared to examinations dated back to 08/24/2008 favoring a benign etiology. Cervical Spine CT 02/14/23 22:15 IMPRESSION: 1. No acute intracranial abnormality. Stable postsurgical changes with right frontotemporal encephalomalacia, global volume loss, and extraocular dilatation of the right lateral ventricle. 2. No cervical spine fracture or traumatic malalignment. Head CT 02/14/23 22:15 IMPRESSION: 1. No acute intracranial abnormality. Stable postsurgical changes with right frontotemporal encephalomalacia, global volume loss, and extraocular dilatation of the right lateral ventricle. 2. No cervical spine fracture or traumatic malalignment. Hip/Pelvis X-Ray 02/14/23 22:25 IMPRESSION: Moderate degenerative changes of the right hip with loss of superolateral joint space. Similar chronic posttraumatic deformity of the right femoral neck with chronic foreshortening. Status post left total hip arthroplasty in unchanged alignment however the lack of a crosstable lateral view limits assessment for dislocation. No acute fracture or dislocation appreciated on the available views. Foot X-Ray 02/22/23 13:50 IMPRESSION: * Postsurgical changes of arthrodesis first metatarsophalangeal joint. * There is developed large osteophyte from the head of the first metatarsal protruding laterally abutting the head of the second metatarsal. This might be the source of patient's pain. * Underlying degenerative osteoarthritis. Foot X-Ray 02/23/23 14:11 IMPRESSION: Mild degenerative changes MTP, PIP and DIP joints. No visible acute fracture or dislocation seen. Medications Medications Current Medications Acetaminophen (Acetaminophen 325 Mg Tablet) 975 mg PO Q6H PRN PRN Reason: Headache/Pain Mild Scale (1-3) Last Admin: 04/08/23 04:40 Dose: 975 mg Alprazolam (Alprazolam 0.25 Mg Tablet) 0.125 mg PO QID PRN PRN Reason: Anxiety Last Admin: 04/07/23 03:37 Dose: 0.125 mg Alprazolam (Alprazolam 0.25 Mg Tablet) 0.25 mg PO BID@0830,1330 [facility] Last Admin: 04/08/23 12:39 Dose: 0.25 mg Alprazolam (Alprazolam 0.25 Mg Tablet) 0.25 mg PO BEDTIME PRN PRN Reason: Insomnia Last Admin: 04/08/23 21:19 Dose: 0.25 mg Alprazolam (Alprazolam 0.5 Mg Tablet) 0.5 mg PO BEDTIME TAZ Last Admin: 04/08/23 21:16 Dose: 0.5 mg Artificial Tears (Artificial Tears 15 Ml Drops) 1 drop EYE-BOTH Q2H PRN PRN Reason: Dry Eyes Last Admin: 04/06/23 12:45 Dose: 1 drop Bisacodyl (Bisacodyl 10 Mg Supp.Rect) 10 mg [place] DAILY PRN PRN Reason: Constipation Clotrimazole (Clotrimazole 1 % Cream 15 Gm Tube) 1 appl TOPICAL BID TAZ; Protocol Last Admin: 04/08/23 09:14 Dose: 1 appl Divalproex Sodium (Divalproex Sodium 250 Mg Tablet.Dr) 750 mg PO BEDTIME TAZ Last Admin: 04/08/23 21:16 Dose: 750 mg Guaifenesin/Dextromethorphan (Guaifenesin Dm 100/10/5 Ml 5 Ml Syrup) 5 ml PO Q4H PRN PRN Reason: cough Last Admin: 03/27/23 22:10 Dose: 5 ml Hydrocortisone (Hydrocortisone 1 % Cream 28.35 Gm Tube) 1 appl TOPICAL BID PRN; Protocol PRN Reason: itchy feet Last Admin: 04/05/23 21:46 Dose: 1 appl Hydroxyzine HCl (Hydroxyzine Hcl 25 Mg Tablet) 25 mg PO Q4H PRN PRN Reason: Anxiety Last Admin: 04/06/23 00:32 Dose: 25 mg Ibuprofen (Ibuprofen 600 Mg Tablet) 600 mg PO Q6H PRN PRN Reason: Pain, Moderate(Pain Scale 4-6) Last Admin: 04/08/23 04:42 Dose: 600 mg Latanoprost (Latanoprost 0.005 % Ophth No 2.5 Ml Drops) 1 drop EYE-BOTH BEDTIME TAZ Lidocaine (Lidocaine 5 % Ointment 35 Gm) 1 appl TOPICAL Q6H PRN; Protocol PRN Reason: pain r foot Last Admin: 04/08/23 21:31 Dose: 1 appl Magnesium Hydroxide (Milk Of Magnesia 30 Ml Oral.Susp) 30 ml PO BID PRN PRN Reason: constipation, stomach/GI upset Last Admin: 04/06/23 21:24 Dose: 30 ml Nortriptyline HCl (Nortriptyline Hcl 25 Mg Capsule) 75 mg PO BEDTIME TAZ Last Admin: 04/08/23 21:18 Dose: 75 mg Nystatin (Nystatin Powder 15 Gm Bottle) 1 appl TOPICAL BID TAZ; Protocol Last Admin: 04/08/23 21:26 Dose: 1 appl Olanzapine (Olanzapine 2.5 Mg Tablet) 2.5 mg PO Q4H PRN PRN Reason: anxiety/restlessness Last Admin: 03/30/23 00:02 Dose: 2.5 mg Olanzapine (Olanzapine 2.5 Mg Tablet) 2.5 mg PO TID TAZ Last Admin: 04/08/23 21:18 Dose: 2.5 mg Ondansetron HCl (Ondansetron Odt 4 Mg Tab.Rapdis) 4 mg TRANSLINGU Q6H PRN PRN Reason: Nausea and Vomiting Last Admin: 03/20/23 09:13 Dose: 4 mg Polyethylene Glycol (Polyethylene Glycol 3350 17 Gm Powd.Pack) 17 gm PO BID TAZ Last Admin: 04/08/23 21:23 Dose: Not Given Propranolol HCl (Propranolol Hcl 20 Mg Tablet) 20 mg PO TID TAZ; Protocol Last Admin: 04/08/23 21:18 Dose: 20 mg Senna/Docusate Sodium (Sennosides/Docusate Sodium Tablet) 2 tab PO BEDTIME TAZ Last Admin: 04/08/23 21:17 Dose: 1 tab Sodium Chloride (Sodium Chloride 0.65 % Nasal 44 Ml Sprbtl) 1 spray NOSTRIL-B Q1H PRN PRN Reason: Nasal Congestion Last Admin: 02/26/23 21:14 Dose: 1 spray Allergies Allergies Allergy/AdvReac Type Severity Reaction Status Date / Time fentanyl [FENTANYL] Allergy Intermediate unknown Verified 04/08/22 07:00 Assessment & Plan Assessment & Plan (1) Major depressive disorder, recurrent severe without psychotic features: Status: Acute Code(s): F33.2 - Major depressive disorder, recurrent severe without psychotic features (2) Cognitive and neurobehavioral dysfunction following brain injury: Status: Acute Code(s): G31.89 - Other specified degenerative diseases of nervous system; F09 - Unspecified mental disorder due to known physiological condition; S06.9X9S - Unspecified intracranial injury with loss of consciousness of unspecified duration, sequela (3) Personality disorder in adult: Status: Acute Code(s): F60.9 - Personality disorder, unspecified Plan ALPRAZOLAM 0.25 B.I.D. 0.5 BEDTIME OLANZAPINE ALSO 3 TIMES A DAY CONTINUE DEPAKOTE START PROPRANOLOL 10 T.I.D. THE PATIENT CONFRONTED REGARDING NEGATIVE TOXIC BEHAVIOR DIFFICULTY COPING AND NEGATIVE COMPLICATIONS TO HIS LIFE IF CONTINUE VERBALLY AGGRESSIVE AND TOXIC BEHAVIOR WITH OTHERS DEVALUATION ENCOURAGE REFLECTION STRESS MANAGEMENT COPING STRATEGIES 03/07 continue same treatment 03/08 continue same treatment 03/09 continue same treatment 03/10/23 Lower alprazolam .125 mg bid hold afternoon olanzapine secondary to slurring oversedation cont propranolol 03/11/23 Pt doing better less sedated struggles to maintain pos attitude 03/13 continue tx. 03/14: stable presentation, no change in mgmt. 03/15: appears sedated. no change in mgmt today. to F/U with attending tomorrow re meds for anxiety. 03/16 continue tx. 03/17 continue tx. 03/18 continue tx. 03/19 continue tx. 03/22 continue tx. 03/23 continue tx. 03/24/2023 Continue treatment plan discharge planning 03/25/2023 Continue plan of care 03/26/2023 Continued discharge planning needs much reassurance 03/27 continue tx. 03/28: Continue treatment plan. 03/29: Continue current treatment plan 03/30 continue tx. 03/31 continue tx. 04/02 no changes in treatment 04/03/2023 Patient more reactive belligerent kicked out at another person and was reactive with staff and aggressive. Seems much more triggered by stimulation difficulty reflecting discussed with patient increasing olanzapine alprazolam for behavioral control 04/07/23 Cont depakote olanzpine alprazolam encourage strategies to deal with triggers d/c planning 04/08/2023 Depakote increased by 125 mg nortriptyline increased continue discharge planning CK CHEM UA CBC Reason for continued inpatient stay Substantial Risk for: harm to self, inability to function and rapid decompensation Time Spent With Patient Time: Total time managing care of this patient today ____ minutes.
[2023-04-08] MEDS: Latanoprost 0.005 % Ophth Sol 2.5 ML DROPS 1 DROP EYE-BOTH (22:21)
[2023-04-09] MEDS: Ibuprofen 600 MG TABLET PO (03:25)
[2023-04-09] MEDS: ALPRAZolam 0.25 MG TABLET 0.125 MG PO ×2 (03:25→15:49)
[2023-04-09 08:20] VITALS: BP 135/79; PULSE 72; RESP 16; TEMP 35.9; O2SAT 96
[2023-04-09 08:20] LABS: MANUAL DIFF FLAG NO
[2023-04-09] MEDS: ALPRAZolam 0.25 MG TABLET PO ×2 (08:21→12:39)
[2023-04-09] MEDS: polyethylene glycoL 3350 17 GM POWD.PACK PO (08:21)
[2023-04-09] MEDS: Propranolol HCL 20 MG TABLET PO ×3 (08:21→21:23)
[2023-04-09] MEDS: Nystatin Powder 15 GM BOTTLE 1 APPL TOPICAL ×2 (08:22→21:36)
[2023-04-09] MEDS: OLANZapine 2.5 MG TABLET PO ×3 (08:22→21:22)
[2023-04-09] MEDS: Clotrimazole 1 % Cream 15 GM TUBE 1 APPL TOPICAL (08:22)
[2023-04-09] MEDS: Lidocaine 5 % Ointment 35 GM 1 APPL TOPICAL (08:24)
[2023-04-09 08:25] LABS: Basophils Absolute Auto 0.1 X10*3/uL (0.0-0.2); Basophils Percent Auto 0.8 % (0-2); Eosinophils Absolute Auto 0.5 X10*3/uL (0.0-0.4); Eosinophils Percent Auto 7.4 % (0-4); Hematocrit 45.2 % (42.0-52.0); Hemoglobin 14.9 g/dl (14.0-18.0); Imm Gran Abs Auto 0.04 X10*3/uL (0.00-0.03); Imm Gran Pct Auto 0.6 % (0.0-0.4); Lymphocytes Absolute Auto 2.6 X10*3/uL (1.2-4.9); Lymphocytes Percent Auto 40.3 % (20-40); Mean Platelet Volume 9.8 fL (9.4-12.4); Monocytes Absolute Auto 0.6 X10*3/uL (0.1-1.2); Neutrophils Absolute Auto 2.7 x10*3/uL (2.0-8.3); Neutrophils Percent Auto 41.9 % (45-73); Platelet Count 182 X10*3/uL (160-400); Red Blood Count 4.81 X10*6/uL (4.60-5.80); Red Cell Distribution Width 11.9 % (11.0-16.0); White Blood Count 6.3 X10*3/uL (4.8-10.8)
[2023-04-09 08:40] LABS: Alanine Aminotransferase 56 U/L (0-40); Albumin Level 4.1 g/dL (3.5-5.0); Alkaline Phosphatase 84 U/L (39-117); Anion Gap 13 (12-20); Aspartate Amino Transferase 33 U/L (5-37); Bilirubin Total 0.5 mg/dL (0.0-1.0); Blood Urea Nitrogen 15 mg/dL (9-16); Calcium 9.6 mg/dL (8.4-10.2); Carbon Dioxide 28 mmol/L (22-29); Chloride 107 mmol/L (96-108); Creatinine Clr Calc Pharmacy 96.8; Estimated Glomerular Filt Rate > 60; Glucose Fasting 85 mg/dL (60-99); Potassium 4.9 mmol/L (3.3-5.1); Sodium 143 mmol/L (135-145); Total Protein 6.8 g/dL (6.5-8.0)
[2023-04-09] MEDS: Divalproex Sodium 250 MG TABLET.DR 125 MG PO (12:39)
[2023-04-09 14:46] LABS: Appearance Urine Clear; Color Urine Yellow; Glucose Urine UA Negative (Negative); Leukocyte Esterase Urine Negative (Negative); Nitrite Urine Negative (Negative); PH 6.5 (5.0-9.0); Specific Gravity - Urine 1.015 (1.005-1.025); Urine Blood Negative (Negative); Urine Ketones Negative (Negative); Urine Protein Negative (Neg-Trace)
[2023-04-09 18:00] VITALS: RESP 16
[2023-04-09] MEDS: Sennosides/Docusate Sodium TABLET 2 TAB PO (21:22)
[2023-04-09] MEDS: ALPRAZolam 0.5 MG TABLET PO (21:23)
[2023-04-09] MEDS: Nortriptyline HCl 25 MG CAPSULE 75 MG PO (21:23)
[2023-04-09] MEDS: Divalproex Sodium 250 MG TABLET.DR 750 MG PO (21:23)
[2023-04-09] MEDS: Acetaminophen 325 MG TABLET 975 MG PO (21:33)
[2023-04-09] MEDS: Latanoprost 0.005 % Ophth Sol 2.5 ML DROPS 1 DROP EYE-BOTH (21:37)
--- NOTE | 2023-04-09 23:33 | P.PNPSI_ITS ---
Subjective Subjective Date of Service: 04/09/23 Reason For Visit: Depression hopelessness irritability Subjective Notes: Conditional Voluntary Guardianship: No Interim History: pt has been increasingly depressed irritable hopeless helpless despondent with thoughts that would be better off not present although trying to hold it together and transition to new apartment setting. Become discouraged over length of time this taking he appears to have cycled into a significant depression Medication Compliance: Yes Side effects from medications: Yes Mental Status Exam Mental Status Exam Patient Appearance: Well Grooomed Patient Orientation: Person, Place, Time and Situation Level of Consciousness: Awake and Appropriate Mood Description: Depressed and Blunted Affect Description: Appropriate and Constricted Patient Cognition Impaired: No Ability to Follow Directions: Good Speech Pattern: Clear Memory Description: Intact Hallucinations: None Delusions: Not Present Thought Process: Intact and Goal Oriented Thought Content: positive for Goal Oriented, positive for Preoccupation, negative for Suicidal Ideation or negative for Homicidal Ideation Depressive Symptoms: Increased Anxiety, Increased Irritability, Hopelessness, Increased Fatigue, Loss of Energy and Difficulty Concentrating Judgement: Good Diagnostics Vital Signs (24Hr): Vital Signs - 24 hr 04/09/23 08:20 04/09/23 18:00 Temperature 96.7 F L Pulse Rate 72 Respiratory Rate 16 16 Blood Pressure 135/79 Pulse Oximetry 96 Oxygen Delivery Method Room Air BMI result Body Mass Index 30.2 Labs 04/09/23 07:59 04/09/23 07:59 Labs: Laboratory Results - last 48 hr 04/08/23 04/08/23 04/09/23 09:26 09:26 07:59 WBC 6.3 RBC 4.81 Hgb 14.9 Hct 45.2 MCV 94.0 MCH 31.0 MCHC 33.0 RDW 11.9 Plt Count 182 MPV 9.8 Immature Gran % (Auto) 0.6 H Neut % (Auto) 41.9 L Lymph % (Auto) 40.3 H [place] % (Auto) 9.0 Eos % (Auto) 7.4 H Baso % (Auto) 0.8 Lymph # (Auto) 2.6 [place] # (Auto) 0.6 Eos # (Auto) 0.5 H Baso # (Auto) 0.1 Abs Immat Gran (auto) 0.04 H Absolute Neuts (auto) 2.7 Absolute Nucleated RBC 0.000 Nucleated RBC % (auto) 0.0 Sodium Potassium Chloride Carbon Dioxide Anion Gap BUN Creatinine Estim Creat Clear Calc Estimated GFR Fasting Glucose Calcium Total Bilirubin AST ALT Alkaline Phosphatase Ammonia 35 Total Protein Albumin Urine Color Urine Appearance Urine pH Ur Specific [place] Urine Protein Urine Glucose (UA) Urine Ketones Urine Blood Urine Nitrite Ur Leukocyte Esterase Valproic Acid 54.2 04/09/23 04/09/23 07:59 14:20 WBC RBC Hgb Hct MCV MCH MCHC RDW Plt Count MPV Immature Gran % (Auto) Neut % (Auto) Lymph % (Auto) [place] % (Auto) Eos % (Auto) Baso % (Auto) Lymph # (Auto) [place] # (Auto) Eos # (Auto) Baso # (Auto) Abs Immat Gran (auto) Absolute Neuts (auto) Absolute Nucleated RBC Nucleated RBC % (auto) Sodium 143 Potassium 4.9 Chloride 107 Carbon Dioxide 28 Anion Gap 13 BUN 15 Creatinine 0.95 Estim Creat Clear Calc 96.8 Estimated GFR > 60 Fasting Glucose 85 Calcium 9.6 Total Bilirubin 0.5 AST 33 ALT 56 H Alkaline Phosphatase 84 Ammonia Total Protein 6.8 Albumin 4.1 Urine Color Yellow Urine Appearance Clear Urine pH 6.5 Ur Specific [place] 1.015 Urine Protein Negative Urine Glucose (UA) Negative Urine Ketones Negative Urine Blood Negative Urine Nitrite Negative Ur Leukocyte Esterase Negative Valproic Acid Imaging Radiology Impressions: ITS Impressions Chest X-Ray 10/20/22 15:45 IMPRESSION: 1. Low lung volumes with bibasilar linear disc atelectasis versus scarring. 2. No airspace consolidation or effusion. Head CT 11/08/22 12:29 IMPRESSION: No acute intracranial hemorrhage or territorial infarction. Stable chronic postoperative changes with gliosis and encephalomalacia in the right frontal and right temporal lobes. Ex vacuo dilatation of the ventricles and diffuse parenchymal volume loss. Right-sided craniotomy changes. Chest X-Ray 11/12/22 10:32 IMPRESSION: Hypoexpanded lungs with bibasilar platelike atelectasis. Brain MRI 11/12/22 13:15 IMPRESSION: 1. No demonstrated acute intracranial abnormalities. 2. Chronic encephalomalacia of the right temporal, right frontal, and left occipital lobes. Small regions of chronic encephalomalacia in the parasagittal aspects of the bilateral parietal lobes. Moderate underlying microangiopathy and generalized cerebral volume loss. Chest X-Ray 11/14/22 15:52 IMPRESSION: Low lung volumes, bibasilar subsegmental atelectasis and slight elevation of the right hemidiaphragm similar to previous exam. Modified Barium Swallow 11/21/22 15:11 IMPRESSION: Laryngeal penetration on several occasions but no laryngeal aspiration. Mild retention of solid food in the valleculae which cleared with subsequent oral administration of water or thin barium. Correlate with speech therapy results. Orbit CT 01/23/23 14:05 IMPRESSION: - No definite significant intraorbital soft tissue findings to assessment is limited on a noncontrast CT of the orbits. No retrobulbar mass lesions and no cellulitic changes appreciated. - There are large fluid levels within the left maxillary sinus and within the right frontal sinus the can be correlated for clinical signs of acute sinusitis. - A peripherally ossified structure extending from the dorsal margin of the right nasolacrimal duct into the right maxillary sinus is stable when compared to examinations dated back to 08/24/2008 favoring a benign etiology. Cervical Spine CT 02/14/23 22:15 IMPRESSION: 1. No acute intracranial abnormality. Stable postsurgical changes with right frontotemporal encephalomalacia, global volume loss, and extraocular dilatation of the right lateral ventricle. 2. No cervical spine fracture or traumatic malalignment. Head CT 02/14/23 22:15 IMPRESSION: 1. No acute intracranial abnormality. Stable postsurgical changes with right frontotemporal encephalomalacia, global volume loss, and extraocular dilatation of the right lateral ventricle. 2. No cervical spine fracture or traumatic malalignment. Hip/Pelvis X-Ray 02/14/23 22:25 IMPRESSION: Moderate degenerative changes of the right hip with loss of superolateral joint space. Similar chronic posttraumatic deformity of the right femoral neck with chronic foreshortening. Status post left total hip arthroplasty in unchanged alignment however the lack of a crosstable lateral view limits assessment for dislocation. No acute fracture or dislocation appreciated on the available views. Foot X-Ray 02/22/23 13:50 IMPRESSION: * Postsurgical changes of arthrodesis first metatarsophalangeal joint. * There is developed large osteophyte from the head of the first metatarsal protruding laterally abutting the head of the second metatarsal. This might be the source of patient's pain. * Underlying degenerative osteoarthritis. Foot X-Ray 02/23/23 14:11 IMPRESSION: Mild degenerative changes MTP, PIP and DIP joints. No visible acute fracture or dislocation seen. Medications Medications Current Medications Acetaminophen (Acetaminophen 325 Mg Tablet) 975 mg PO Q6H PRN PRN Reason: Headache/Pain Mild Scale (1-3) Last Admin: 04/09/23 21:33 Dose: 975 mg Alprazolam (Alprazolam 0.25 Mg Tablet) 0.125 mg PO QID PRN PRN Reason: Anxiety Last Admin: 04/09/23 15:49 Dose: 0.125 mg Alprazolam (Alprazolam 0.25 Mg Tablet) 0.25 mg PO BID@0830,1330 TAZ Last Admin: 04/09/23 12:39 Dose: 0.25 mg Alprazolam (Alprazolam 0.25 Mg Tablet) 0.25 mg PO BEDTIME PRN PRN Reason: Insomnia Last Admin: 04/08/23 21:19 Dose: 0.25 mg Alprazolam (Alprazolam 0.5 Mg Tablet) 0.5 mg PO BEDTIME TAZ Last Admin: 04/09/23 21:23 Dose: 0.5 mg Artificial Tears (Artificial Tears 15 Ml Drops) 1 drop EYE-BOTH Q2H PRN PRN Reason: Dry Eyes Last Admin: 04/06/23 12:45 Dose: 1 drop Bisacodyl (Bisacodyl 10 Mg Supp.Rect) 10 mg [place] DAILY PRN PRN Reason: Constipation Clotrimazole (Clotrimazole 1 % Cream 15 Gm Tube) 1 appl TOPICAL BID TAZ; Protocol Last Admin: 04/09/23 22:25 Dose: Not Given Divalproex Sodium (Divalproex Sodium 250 Mg Tablet.Dr) 750 mg PO BEDTIME TAZ Last Admin: 04/09/23 21:23 Dose: 750 mg Divalproex Sodium (Divalproex Sodium 250 Mg Tablet.Dr) 125 mg PO DAILY@1200 TAZ Last Admin: 04/09/23 12:39 Dose: 125 mg Guaifenesin/Dextromethorphan (Guaifenesin Dm 100/10/5 Ml 5 Ml Syrup) 5 ml PO Q4H PRN PRN Reason: cough Last Admin: 03/27/23 22:10 Dose: 5 ml Hydrocortisone (Hydrocortisone 1 % Cream 28.35 Gm Tube) 1 appl TOPICAL BID PRN; Protocol PRN Reason: itchy feet Last Admin: 04/05/23 21:46 Dose: 1 appl Hydroxyzine HCl (Hydroxyzine Hcl 25 Mg Tablet) 25 mg PO Q4H PRN PRN Reason: Anxiety Last Admin: 04/06/23 00:32 Dose: 25 mg Ibuprofen (Ibuprofen 600 Mg Tablet) 600 mg PO Q6H PRN PRN Reason: Pain, Moderate(Pain Scale 4-6) Last Admin: 04/09/23 03:25 Dose: 600 mg Latanoprost (Latanoprost 0.005 % Ophth No 2.5 Ml Drops) 1 drop EYE-BOTH BEDTIME TAZ Last Admin: 04/09/23 21:37 Dose: 1 drop Lidocaine (Lidocaine 5 % Ointment 35 Gm) 1 appl TOPICAL Q6H PRN; Protocol PRN Reason: pain r foot Last Admin: 04/09/23 08:24 Dose: 1 appl Magnesium Hydroxide (Milk Of Magnesia 30 Ml Oral.Susp) 30 ml PO BID PRN PRN Reason: constipation, stomach/GI upset Last Admin: 04/06/23 21:24 Dose: 30 ml Nortriptyline HCl (Nortriptyline Hcl 25 Mg Capsule) 75 mg PO BEDTIME TAZ Last Admin: 04/09/23 21:23 Dose: 75 mg Nystatin (Nystatin Powder 15 Gm Bottle) 1 appl TOPICAL BID TAZ; Protocol Last Admin: 04/09/23 21:36 Dose: 1 appl Olanzapine (Olanzapine 2.5 Mg Tablet) 2.5 mg PO Q4H PRN PRN Reason: anxiety/restlessness Last Admin: 03/30/23 00:02 Dose: 2.5 mg Olanzapine (Olanzapine 2.5 Mg Tablet) 2.5 mg PO TID TAZ Last Admin: 04/09/23 21:22 Dose: 2.5 mg Ondansetron HCl (Ondansetron Odt 4 Mg Tab.Rapdis) 4 mg TRANSLINGU Q6H PRN PRN Reason: Nausea and Vomiting Last Admin: 03/20/23 09:13 Dose: 4 mg Propranolol HCl (Propranolol Hcl 20 Mg Tablet) 20 mg PO TID TAZ; Protocol Last Admin: 04/09/23 21:23 Dose: 20 mg Senna/Docusate Sodium (Sennosides/Docusate Sodium Tablet) 2 tab PO BEDTIME TAZ Last Admin: 04/09/23 21:22 Dose: 2 tab Sodium Chloride (Sodium Chloride 0.65 % Nasal 44 Ml Sprbtl) 1 spray NOSTRIL-B Q1H PRN PRN Reason: Nasal Congestion Last Admin: 02/26/23 21:14 Dose: 1 spray Allergies Allergies Allergy/AdvReac Type Severity Reaction Status Date / Time fentanyl [FENTANYL] Allergy Intermediate unknown Verified 04/08/22 07:00 Assessment & Plan Assessment & Plan (1) Major depressive disorder, recurrent severe without psychotic features: Status: Acute Code(s): F33.2 - Major depressive disorder, recurrent severe without psychotic features (2) Cognitive and neurobehavioral dysfunction following brain injury: Status: Acute Code(s): G31.89 - Other specified degenerative diseases of nervous system; F09 - Unspecified mental disorder due to known physiological condition; S06.9X9S - Unspecified intracranial injury with loss of consciousness of unspecified duration, sequela (3) Personality disorder in adult: Status: Acute Code(s): F60.9 - Personality disorder, unspecified Plan ALPRAZOLAM 0.25 B.I.D. 0.5 BEDTIME OLANZAPINE ALSO 3 TIMES A DAY CONTINUE DEPAKO TE START PROPRANOLOL 10 T.I.D. THE PATIENT CONFRONTED REGARDING NEGATIVE TOXIC BEHAVIOR DIFFICULTY COPING AND NEGATIVE COMPLICATIONS TO HIS LIFE IF CONTINUE VERBALLY AGGRESSIVE AND TOXIC BEHAVIOR WITH OTHERS DEVALUATION ENCOURAGE REFLECTION STRESS MANAGEMENT COPING STRATEGIES 03/07 continue same treatment 03/08 continue same treatment 03/09 continue same treatment 03/10/23 Lower alprazolam .125 mg bid hold afternoon olanzapine secondary to slurring oversedation cont propranolol 03/11/23 Pt doing better less sedated struggles to maintain pos attitude 03/13 continue tx. 03/14: stable presentation, no change in mgmt. 03/15: appears sedated. no change in mgmt today. to F/U with attending mahendra pathak for anxiety. 03/16 continue tx. 03/17 continue tx. 03/18 continue tx. 03/19 continue tx. 03/22 continue tx. 03/23 continue tx. 03/24/2023 Continue treatment plan discharge planning 03/25/2023 Continue plan of care 03/26/2023 Continued discharge planning needs much reassurance 03/27 continue tx. 03/28: Continue treatment plan. 03/29: Continue current treatment plan 5/15 continue tx. 03/31 continue tx. 04/02 no changes in treatment 04/03/2023 Patient more reactive belligerent kicked out at another person and was reactive with staff and aggressive. Seems much more triggered by stimulation difficulty reflecting discussed with patient increasing olanzapine alprazolam for behavioral control 04/07/23 Cont depakote olanzpine alprazolam encourage strategies to deal with triggers d/c planning 04/08/2023 Depakote increased by 125 mg nortriptyline increased continue discharge planning CK CHEM UA CBC 04/09/23 Patient has become increasingly depressed olanzapine Depakote could not effective for dysphoria irritability case reviewed dr nelson consider ect mirtazapine Reason for continued inpatient stay Substantial Risk for: harm to self, inability to function and rapid decompensation Time Spent With Patient Time: Total time managing care of this patient today ____ minutes.
[2023-04-10] MEDS: Acetaminophen 325 MG TABLET 975 MG PO ×2 (05:22→21:56)
[2023-04-10] MEDS: hydrOXYzine HCL 25 MG TABLET PO (05:54)
[2023-04-10 08:19] VITALS: BP 136/81; PULSE 74; RESP 18; O2SAT 96
[2023-04-10] MEDS: OLANZapine 2.5 MG TABLET PO ×2 (08:20→21:34)
[2023-04-10] MEDS: Propranolol HCL 20 MG TABLET PO ×2 (08:21→21:33)
[2023-04-10] MEDS: ALPRAZolam 0.25 MG TABLET PO ×2 (08:21→11:46)
[2023-04-10] MEDS: Divalproex Sodium 250 MG TABLET.DR 750 MG PO ×2 (11:45→21:30)
[2023-04-10] MEDS: polyethylene glycoL 3350 17 GM POWD.PACK PO (11:45)
--- NOTE | 2023-04-10 12:53 | P.PNPSI_ITS ---
Subjective Subjective Date of Service: 04/10/23 Reason For Visit: Depression hopelessness irritability Subjective Notes: Conditional Voluntary Interim History: The nursing staff reported the patient is dysphoric, irritable. His psychiatrist did some med changes. So far he no changes in his mental status he is irritable and angry threatening staff at times. On interview the patient reports that he is not doing well, he is very frustrated that he had been in the hospital for so long, irritable at times, oversedated. I discussed opitons since his medications were recently changed, he agreed to add medications at since he complaints of insomnia.. Waiting for placement Mental Status Exam Mental Status Exam Patient Appearance: Appropriate Patient Orientation: Person and Situation Level of Consciousness: Awake and Appropriate Patient Behavior: Guarded and Suspicious Mood Description: Withdrawn Affect Description: Constricted Patient Cognition Impaired: Yes Ability to Follow Directions: Good Speech Pattern: Clear Hallucinations: None Delusions: Not Present Thought Process: Distracted and Linear Thought Content: positive for [place] and positive for Circumstantial Judgement: Fair Diagnostics Vital Signs (24Hr): Vital Signs - 24 hr 04/09/23 18:00 04/10/23 08:19 Pulse Rate 74 Respiratory Rate 16 18 Blood Pressure 136/81 Pulse Oximetry 96 Oxygen Delivery Method Room Air BMI result Body Mass Index 30.2 Labs 04/09/23 07:59 04/09/23 07:59 Labs: Laboratory Results - last 48 hr 04/09/23 04/09/23 04/09/23 07:59 07:59 14:20 WBC 6.3 RBC 4.81 Hgb 14.9 Hct 45.2 MCV 94.0 MCH 31.0 MCHC 33.0 RDW 11.9 Plt Count 182 MPV 9.8 Immature Gran % (Auto) 0.6 H Neut % (Auto) 41.9 L Lymph % (Auto) 40.3 H [place] % (Auto) 9.0 Eos % (Auto) 7.4 H Baso % (Auto) 0.8 Lymph # (Auto) 2.6 [place] # (Auto) 0.6 Eos # (Auto) 0.5 H Baso # (Auto) 0.1 Abs Immat Gran (auto) 0.04 H Absolute Neuts (auto) 2.7 Absolute Nucleated RBC 0.000 Nucleated RBC % (auto) 0.0 Sodium 143 Potassium 4.9 Chloride 107 Carbon Dioxide 28 Anion Gap 13 BUN 15 Creatinine 0.95 Estim Creat Clear Calc 96.8 Estimated GFR > 60 Fasting Glucose 85 Calcium 9.6 Total Bilirubin 0.5 AST 33 ALT 56 H Alkaline Phosphatase 84 Total Protein 6.8 Albumin 4.1 Urine Color Yellow Urine Appearance Clear Urine pH 6.5 Ur Specific [place] 1.015 Urine Protein Negative Urine Glucose (UA) Negative Urine Ketones Negative Urine Blood Negative Urine Nitrite Negative Ur Leukocyte Esterase Negative Imaging Radiology Impressions: ITS Impressions Chest X-Ray 10/20/22 15:45 IMPRESSION: 1. Low lung volumes with bibasilar linear disc atelectasis versus scarring. 2. No airspace consolidation or effusion. Head CT 11/08/22 12:29 IMPRESSION: No acute intracranial hemorrhage or territorial infarction. Stable chronic postoperative changes with gliosis and encephalomalacia in the right frontal and right temporal lobes. Ex vacuo dilatation of the ventricles and diffuse parenchymal volume loss. Right-sided craniotomy changes. Chest X-Ray 11/12/22 10:32 IMPRESSION: Hypoexpanded lungs with bibasilar platelike atelectasis. Brain MRI 11/12/22 13:15 IMPRESSION: 1. No demonstrated acute intracranial abnormalities. 2. Chronic encephalomalacia of the right temporal, right frontal, and left occipital lobes. Small regions of chronic encephalomalacia in the parasagittal aspects of the bilateral parietal lobes. Moderate underlying microangiopathy and generalized cerebral volume loss. Chest X-Ray 11/14/22 15:52 IMPRESSION: Low lung volumes, bibasilar subsegmental atelectasis and slight elevation of the right hemidiaphragm similar to previous exam. Modified Barium Swallow 11/21/22 15:11 IMPRESSION: Laryngeal penetration on several occasions but no laryngeal aspiration. Mild retention of solid food in the valleculae which cleared with subsequent oral administration of water or thin barium. Correlate with speech therapy results. Orbit CT 01/23/23 14:05 IMPRESSION: - No definite significant intraorbital soft tissue findings to assessment is limited on a noncontrast CT of the orbits. No retrobulbar mass lesions and no cellulitic changes appreciated. - There are large fluid levels within the left maxillary sinus and within the right frontal sinus the can be correlated for clinical signs of acute sinusitis. - A peripherally ossified structure extending from the dorsal margin of the right nasolacrimal duct into the right maxillary sinus is stable when compared to examinations dated back to 08/24/2008 favoring a benign etiology. Cervical Spine CT 02/14/23 22:15 IMPRESSION: 1. No acute intracranial abnormality. Stable postsurgical changes with right frontotemporal encephalomalacia, global volume loss, and extraocular dilatation of the right lateral ventricle. 2. No cervical spine fracture or traumatic malalignment. Head CT 02/14/23 22:15 IMPRESSION: 1. No acute intracranial abnormality. Stable postsurgical changes with right frontotemporal encephalomalacia, global volume loss, and extraocular dilatation of the right lateral ventricle. 2. No cervical spine fracture or traumatic malalignment. Hip/Pelvis X-Ray 02/14/23 22:25 IMPRESSION: Moderate degenerative changes of the right hip with loss of superolateral joint space. Similar chronic posttraumatic deformity of the right femoral neck with chronic foreshortening. Status post left total hip arthroplasty in unchanged alignment however the lack of a crosstable lateral view limits assessment for dislocation. No acute fracture or dislocation appreciated on the available views. Foot X-Ray 02/22/23 13:50 IMPRESSION: * Postsurgical changes of arthrodesis first metatarsophalangeal joint. * There is developed large osteophyte from the head of the first metatarsal protruding laterally abutting the head of the second metatarsal. This might be the source of patient's pain. * Underlying degenerative osteoarthritis. Foot X-Ray 02/23/23 14:11 IMPRESSION: Mild degenerative changes MTP, PIP and DIP joints. No visible acute fracture or dislocation seen. Medications Medications Current Medications Acetaminophen (Acetaminophen 325 Mg Tablet) 975 mg PO Q6H PRN PRN Reason: Headache/Pain Mild Scale (1-3) Last Admin: 04/10/23 05:22 Dose: 975 mg Alprazolam (Alprazolam 0.25 Mg Tablet) 0.125 mg PO QID PRN PRN Reason: Anxiety Last Admin: 04/09/23 15:49 Dose: 0.125 mg Alprazolam (Alprazolam 0.25 Mg Tablet) 0.25 mg PO BID@0830,1330 TAZ Last Admin: 04/10/23 11:46 Dose: 0.25 mg Alprazolam (Alprazolam 0.25 Mg Tablet) 0.25 mg PO BEDTIME PRN PRN Reason: Insomnia Last Admin: 04/08/23 21:19 Dose: 0.25 mg Alprazolam (Alprazolam 0.5 Mg Tablet) 0.5 mg PO BEDTIME TAZ Last Admin: 04/09/23 21:23 Dose: 0.5 mg Artificial Tears (Artificial Tears 15 Ml Drops) 1 drop EYE-BOTH Q2H PRN PRN Reason: Dry Eyes Last Admin: 04/06/23 12:45 Dose: 1 drop Bisacodyl (Bisacodyl 10 Mg Supp.Rect) 10 mg FL DAILY PRN PRN Reason: Constipation Clotrimazole (Clotrimazole 1 % Cream 15 Gm Tube) 1 appl TOPICAL BID TAZ; Protocol Last Admin: 04/10/23 10:17 Dose: Not Given Divalproex Sodium (Divalproex Sodium 250 Mg Tablet.) 750 mg PO BEDTIME TAZ Last Admin: 04/10/23 11:45 Dose: 750 mg Divalproex Sodium (Divalproex Sodium 250 Mg Tablet.) 125 mg PO DAILY@1200 TAZ Last Admin: 04/09/23 12:39 Dose: 125 mg Guaifenesin/Dextromethorphan (Guaifenesin Dm 100/10/5 Ml 5 Ml Syrup) 5 ml PO Q4H PRN PRN Reason: cough Last Admin: 03/27/23 22:10 Dose: 5 ml Hydrocortisone (Hydrocortisone 1 % Cream 28.35 Gm Tube) 1 appl TOPICAL BID PRN; Protocol PRN Reason: itchy feet Last Admin: 04/05/23 21:46 Dose: 1 appl Hydroxyzine HCl (Hydroxyzine Hcl 25 Mg Tablet) 25 mg PO Q4H PRN PRN Reason: Anxiety Last Admin: 04/10/23 05:54 Dose: 25 mg Ibuprofen (Ibuprofen 600 Mg Tablet) 600 mg PO Q6H PRN PRN Reason: Pain, Moderate(Pain Scale 4-6) Last Admin: 04/09/23 03:25 Dose: 600 mg Latanoprost (Latanoprost 0.005 % Ophth No 2.5 Ml Drops) 1 drop EYE-BOTH BEDTIME TAZ Last Admin: 04/09/23 21:37 Dose: 1 drop Lidocaine (Lidocaine 5 % Ointment 35 Gm) 1 appl TOPICAL Q6H PRN; Protocol PRN Reason: pain r foot Last Admin: 04/09/23 08:24 Dose: 1 appl Magnesium Hydroxide (Milk Of Magnesia 30 Ml Oral.Susp) 30 ml PO BID PRN PRN Reason: constipation, stomach/GI upset Last Admin: 04/06/23 21:24 Dose: 30 ml Mirtazapine (Mirtazapine 7.5 Mg Tablet) 7.5 mg PO BEDTIME TAZ Nortriptyline HCl (Nortriptyline Hcl 25 Mg Capsule) 75 mg PO BEDTIME [facility] Last Admin: 04/09/23 21:23 Dose: 75 mg Nystatin (Nystatin Powder 15 Gm Bottle) 1 appl TOPICAL BID [facility]; Protocol Last Admin: 04/10/23 10:17 Dose: Not Given Olanzapine (Olanzapine 2.5 Mg Tablet) 2.5 mg PO Q4H PRN PRN Reason: anxiety/restlessness Last Admin: 03/30/23 00:02 Dose: 2.5 mg Olanzapine (Olanzapine 2.5 Mg Tablet) 2.5 mg PO TID [facility] Last Admin: 04/10/23 08:20 Dose: 2.5 mg Ondansetron HCl (Ondansetron Odt 4 Mg Tab.Rapdis) 4 mg TRANSLINGU Q6H PRN PRN Reason: Nausea and Vomiting Last Admin: 03/20/23 09:13 Dose: 4 mg Polyethylene Glycol (Polyethylene Glycol 3350 17 Gm Powd.Pack) 17 gm PO DAILY PRN PRN Reason: Constipation Last Admin: 04/10/23 11:45 Dose: 17 gm Propranolol HCl (Propranolol Hcl 20 Mg Tablet) 20 mg PO TID [facility]; Protocol Last Admin: 04/10/23 08:21 Dose: 20 mg Senna/Docusate Sodium (Sennosides/Docusate Sodium Tablet) 2 tab PO BEDTIME TAZ Last Admin: 04/09/23 21:22 Dose: 2 tab Sodium Chloride (Sodium Chloride 0.65 % Nasal 44 Ml Sprbtl) 1 spray NOSTRIL-B Q1H PRN PRN Reason: Nasal Congestion Last Admin: 02/26/23 21:14 Dose: 1 spray Allergies Allergies Allergy/AdvReac Type Severity Reaction Status Date / Time fentanyl [FENTANYL] Allergy Intermediate unknown Verified 04/08/22 07:00 Assessment & Plan Assessment & Plan (1) Major depressive disorder, recurrent severe without psychotic features: Status: Acute Code(s): F33.2 - Major depressive disorder, recurrent severe without psychotic features (2) Cognitive and neurobehavioral dysfunction following brain injury: Status: Acute Code(s): G31.89 - Other specified degenerative diseases of nervous system; F09 - Unspecified mental disorder due to known physiological condition; S06.9X9S - Unspecified intracranial injury with loss of consciousness of unspecified duration, sequela (3) Personality disorder in adult: Status: Acute Code(s): F60.9 - Personality disorder, unspecified Plan ALPRAZOLAM 0.25 B.I.D. 0.5 BEDTIME OLANZAPINE ALSO 3 TIMES A DAY CONTINUE DEPAKOTE START PROPRANOLOL 10 T.I.D. THE PATIENT CONFRONTED REGARDING NEGATIVE TOXIC BEHAVIOR DIFFICULTY COPING AND NEGATIVE COMPLICATIONS TO HIS LIFE IF CONTINUE VERBALLY AGGRESSIVE AND TOXIC BEHAVIOR WITH OTHERS DEVALUATION ENCOURAGE REFLECTION STRESS MANAGEMENT COPING STRATEGIES 03/07 continue same treatment 03/08 continue same treatment 03/09 continue same treatment 03/10/23 Lower alprazolam .125 mg bid hold afternoon olanzapine secondary to slurring oversedation cont propranolol 03/11/23 Pt doing better less sedated struggles to maintain pos attitude 03/13 continue tx. 03/14: stable presentation, no change in mgmt. 03/15: appears sedated. no change in mgmt today. to F/U with attending tomorrow re meds for anxiety. 03/16 continue tx. 03/17 continue tx. 03/18 continue tx. 03/19 continue tx. 03/22 continue tx. 03/23 continue tx. 03/24/2023 Continue treatment plan discharge planning 03/25/2023 Continue plan of care 03/26/2023 Continued discharge planning needs much reassurance 03/27 continue tx. 03/28: Continue treatment plan. 03/29: Continue current treatment plan 03/30 continue tx. 03/31 continue tx. 04/02 no changes in treatment 04/03/2023 Patient more reactive belligerent kicked out at another person and was reactive with staff and aggressive. Seems much more triggered by stimulation difficulty reflecting discussed with patient increasing olanzapine alprazolam for behavioral control 04/07/23 Cont depakote olanzpine alprazolam encourage strategies to deal with triggers d/c planning 04/08/2023 Depakote increased by 125 mg nortriptyline increased continue discharge planning CK CHEM UA CBC 04/09/23 Patient has become increasingly depressed olanzapine Depakote could not effective for dysphoria irritability case reviewed dr nelson consider ect mirtazapine 04/10 Add Ambien 5 mg at hs Reason for continued inpatient stay Substantial Risk for: inability to function, rapid decompensation and med/psych decompensation Time Spent With Patient Time: Total time managing care of this patient today _20___ minutes.
[2023-04-10] MEDS: Artificial Tears 15 ML DROPS 1 DROP EYE-BOTH (13:34)
[2023-04-10] MEDS: Divalproex Sodium 250 MG TABLET.DR 125 MG PO (13:38)
[2023-04-10 18:00] VITALS: BP 163/85; PULSE 78; RESP 16; TEMP 36.2; O2SAT 97
[2023-04-10] MEDS: ALPRAZolam 0.5 MG TABLET PO (21:29)
[2023-04-10] MEDS: Sennosides/Docusate Sodium TABLET 2 TAB PO (21:29)
[2023-04-10] MEDS: Nortriptyline HCl 25 MG CAPSULE 75 MG PO (21:31)
[2023-04-10] MEDS: Mirtazapine 7.5 MG TABLET PO (21:32)
[2023-04-10] MEDS: Zolpidem Tartrate 5 MG TABLET PO (21:32)
[2023-04-10] MEDS: Nystatin Powder 15 GM BOTTLE 1 APPL TOPICAL (21:37)
[2023-04-10] MEDS: Lidocaine 5 % Ointment 35 GM 1 APPL TOPICAL (21:37)
[2023-04-10] MEDS: Hydrocortisone 1 % Cream 28.35 GM TUBE 1 APPL TOPICAL (21:37)
[2023-04-10] MEDS: Latanoprost 0.005 % Ophth Sol 2.5 ML DROPS 1 DROP EYE-BOTH (21:37)
[2023-04-10] MEDS: Clotrimazole 1 % Cream 15 GM TUBE 1 APPL TOPICAL (21:37)
[2023-04-11 08:15] VITALS: BP 146/88; PULSE 76; RESP 20; TEMP 36.7; O2SAT 97
[2023-04-11] MEDS: ALPRAZolam 0.25 MG TABLET PO ×3 (09:24→23:11)
[2023-04-11] MEDS: OLANZapine 2.5 MG TABLET PO ×3 (09:24→20:45)
[2023-04-11] MEDS: Propranolol HCL 20 MG TABLET PO ×3 (09:24→20:46)
[2023-04-11] MEDS: Clotrimazole 1 % Cream 15 GM TUBE 1 APPL TOPICAL ×2 (09:59→20:51)
[2023-04-11] MEDS: Nystatin Powder 15 GM BOTTLE 1 APPL TOPICAL ×2 (09:59→20:48)
[2023-04-11] MEDS: polyethylene glycoL 3350 17 GM POWD.PACK PO (10:17)
--- NOTE | 2023-04-11 11:00 | HO.PSYCHPN ---
Subjective Subjective Date of Service: 04/11/23 Reason For Visit: Depression hopelessness irritability Interim History: The nursing staff reported the patient can be inappropriate and instigates others. He can be irritable and intrusive towards others including staff and patients. He is dysphoric, irritable at times. On interview the patient reports that he is not doing well, he is very frustrated that he had been in the hospital for so long, irritable at times, sleeps during the day and can be withdrawn at times. Awaiting placement Review of Systems Review of Systems unremarkable Yes all other systems are reviewed and are negative, Unobtainable due to mental condition and Unobtainable due to mental status Mental Status Exam Mental Status Exam Narrative: Patient Appearance: Appropriate Patient Orientation: Person and Situation Level of Consciousness: Awake and Appropriate Patient Behavior: Guarded and Suspicious Behavior Comments: Mood Description: Withdrawn Affect Description: Constricted Patient Cognition Impaired: Yes Ability to Follow Directions: Good Speech Pattern: Clear Memory Description: Intact Diagnostics Vital Signs (24Hr): Vital Signs - 24 hr 04/10/23 18:00 04/11/23 08:15 Temperature 97.2 F 98.0 F Pulse Rate 78 76 Respiratory Rate 16 20 Blood Pressure 163/85 H 146/88 H Pulse Oximetry 97 97 Oxygen Delivery Method Room Air Room Air BMI result Body Mass Index 30.2 Labs 04/09/23 07:59 04/09/23 07:59 Labs: Laboratory Results - last 48 hr 04/09/23 14:20 Urine Color Yellow Urine Appearance Clear Urine pH 6.5 Ur Specific [place] 1.015 Urine Protein Negative Urine Glucose (UA) Negative Urine Ketones Negative Urine Blood Negative Urine Nitrite Negative Ur Leukocyte Esterase Negative Imaging Radiology Impressions: ITS Impressions Chest X-Ray 10/20/22 15:45 IMPRESSION: 1. Low lung volumes with bibasilar linear disc atelectasis versus scarring. 2. No airspace consolidation or effusion. Head CT 11/08/22 12:29 IMPRESSION: No acute intracranial hemorrhage or territorial infarction. Stable chronic postoperative changes with gliosis and encephalomalacia in the right frontal and right temporal lobes. Ex vacuo dilatation of the ventricles and diffuse parenchymal volume loss. Right-sided craniotomy changes. Chest X-Ray 11/12/22 10:32 IMPRESSION: Hypoexpanded lungs with bibasilar platelike atelectasis. Brain MRI 11/12/22 13:15 IMPRESSION: 1. No demonstrated acute intracranial abnormalities. 2. Chronic encephalomalacia of the right temporal, right frontal, and left occipital lobes. Small regions of chronic encephalomalacia in the parasagittal aspects of the bilateral parietal lobes. Moderate underlying microangiopathy and generalized cerebral volume loss. Chest X-Ray 11/14/22 15:52 IMPRESSION: Low lung volumes, bibasilar subsegmental atelectasis and slight elevation of the right hemidiaphragm similar to previous exam. Modified Barium Swallow 11/21/22 15:11 IMPRESSION: Laryngeal penetration on several occasions but no laryngeal aspiration. Mild retention of solid food in the valleculae which cleared with subsequent oral administration of water or thin barium. Correlate with speech therapy results. Orbit CT 01/23/23 14:05 IMPRESSION: - No definite significant intraorbital soft tissue findings to assessment is limited on a noncontrast CT of the orbits. No retrobulbar mass lesions and no cellulitic changes appreciated. - There are large fluid levels within the left maxillary sinus and within the right frontal sinus the can be correlated for clinical signs of acute sinusitis. - A peripherally ossified structure extending from the dorsal margin of the right nasolacrimal duct into the right maxillary sinus is stable when compared to examinations dated back to 08/24/2008 favoring a benign etiology. Cervical Spine CT 02/14/23 22:15 IMPRESSION: 1. No acute intracranial abnormality. Stable postsurgical changes with right frontotemporal encephalomalacia, global volume loss, and extraocular dilatation of the right lateral ventricle. 2. No cervical spine fracture or traumatic malalignment. Head CT 02/14/23 22:15 IMPRESSION: 1. No acute intracranial abnormality. Stable postsurgical changes with right frontotemporal encephalomalacia, global volume loss, and extraocular dilatation of the right lateral ventricle. 2. No cervical spine fracture or traumatic malalignment. Hip/Pelvis X-Ray 02/14/23 22:25 IMPRESSION: Moderate degenerative changes of the right hip with loss of superolateral joint space. Similar chronic posttraumatic deformity of the right femoral neck with chronic foreshortening. Status post left total hip arthroplasty in unchanged alignment however the lack of a crosstable lateral view limits assessment for dislocation. No acute fracture or dislocation appreciated on the available views. Foot X-Ray 02/22/23 13:50 IMPRESSION: * Postsurgical changes of arthrodesis first metatarsophalangeal joint. * There is developed large osteophyte from the head of the first metatarsal protruding laterally abutting the head of the second metatarsal. This might be the source of patient's pain. * Underlying degenerative osteoarthritis. Foot X-Ray 02/23/23 14:11 IMPRESSION: Mild degenerative changes MTP, PIP and DIP joints. No visible acute fracture or dislocation seen. Medications Medications Current Medications Acetaminophen (Acetaminophen 325 Mg Tablet) 975 mg PO Q6H PRN PRN Reason: Headache/Pain Mild Scale (1-3) Last Admin: 04/10/23 21:56 Dose: 975 mg Alprazolam (Alprazolam 0.25 Mg Tablet) 0.125 mg PO QID PRN PRN Reason: Anxiety Last Admin: 04/09/23 15:49 Dose: 0.125 mg Alprazolam (Alprazolam 0.25 Mg Tablet) 0.25 mg PO BID@0830,1330 [facility] Last Admin: 04/11/23 09:24 Dose: 0.25 mg Alprazolam (Alprazolam 0.25 Mg Tablet) 0.25 mg PO BEDTIME PRN PRN Reason: Insomnia Last Admin: 04/08/23 21:19 Dose: 0.25 mg Alprazolam (Alprazolam 0.5 Mg Tablet) 0.5 mg PO BEDTIME [facility] Last Admin: 04/10/23 21:29 Dose: 0.5 mg Artificial Tears (Artificial Tears 15 Ml Drops) 1 drop EYE-BOTH Q2H PRN PRN Reason: Dry Eyes Last Admin: 04/10/23 13:34 Dose: 1 drop Bisacodyl (Bisacodyl 10 Mg Supp.Rect) 10 mg ID DAILY PRN PRN Reason: Constipation Clotrimazole (Clotrimazole 1 % Cream 15 Gm Tube) 1 appl TOPICAL BID [facility]; Protocol Last Admin: 04/11/23 09:59 Dose: 1 appl Divalproex Sodium (Divalproex Sodium 250 Mg Tablet.) 750 mg PO BEDTIME [facility] Last Admin: 04/10/23 21:30 Dose: 750 mg Divalproex Sodium (Divalproex Sodium 250 Mg Tablet.) 125 mg PO DAILY@1200 [facility] Last Admin: 05/26/23 13:38 Dose: 125 mg Guaifenesin/Dextromethorphan (Guaifenesin Dm 100/10/5 Ml 5 Ml Syrup) 5 ml PO Q4H PRN PRN Reason: cough Last Admin: 03/27/23 22:10 Dose: 5 ml Hydrocortisone (Hydrocortisone 1 % Cream 28.35 Gm Tube) 1 appl TOPICAL BID PRN; Protocol PRN Reason: itchy feet Last Admin: 04/10/23 21:37 Dose: 1 appl Hydroxyzine HCl (Hydroxyzine Hcl 25 Mg Tablet) 25 mg PO Q4H PRN PRN Reason: Anxiety Last Admin: 04/10/23 05:54 Dose: 25 mg Ibuprofen (Ibuprofen 600 Mg Tablet) 600 mg PO Q6H PRN PRN Reason: Pain, Moderate(Pain Scale 4-6) Last Admin: 04/09/23 03:25 Dose: 600 mg Latanoprost (Latanoprost 0.005 % Ophth No 2.5 Ml Drops) 1 drop EYE-BOTH BEDTIME [facility]Z Last Admin: 04/10/23 21:37 Dose: 1 drop Lidocaine (Lidocaine 5 % Ointment 35 Gm) 1 appl TOPICAL Q6H PRN; Protocol PRN Reason: pain r foot Last Admin: 04/10/23 21:37 Dose: 1 appl Magnesium Hydroxide (Milk Of Magnesia 30 Ml Oral.Susp) 30 ml PO BID PRN PRN Reason: constipation, stomach/GI upset Last Admin: 04/06/23 21:24 Dose: 30 ml Mirtazapine (Mirtazapine 7.5 Mg Tablet) 7.5 mg PO BEDTIME TAZ Last Admin: 04/10/23 21:32 Dose: 7.5 mg Nortriptyline HCl (Nortriptyline Hcl 25 Mg Capsule) 75 mg PO BEDTIME [facility]Z Last Admin: 04/10/23 21:31 Dose: 75 mg Nystatin (Nystatin Powder 15 Gm Bottle) 1 appl TOPICAL BID [facility]; Protocol Last Admin: 04/11/23 09:59 Dose: 1 appl Olanzapine (Olanzapine 2.5 Mg Tablet) 2.5 mg PO Q4H PRN PRN Reason: anxiety/restlessness Last Admin: 03/30/23 00:02 Dose: 2.5 mg Olanzapine (Olanzapine 2.5 Mg Tablet) 2.5 mg PO TID [facility]Z Last Admin: 04/11/23 09:24 Dose: 2.5 mg Ondansetron HCl (Ondansetron Odt 4 Mg Tab.Rapdis) 4 mg TRANSLINGU Q6H PRN PRN Reason: Nausea and Vomiting Last Admin: 03/20/23 09:13 Dose: 4 mg Polyethylene Glycol (Polyethylene Glycol 3350 17 Gm Powd.Pack) 17 gm PO DAILY PRN PRN Reason: Constipation Last Admin: 04/11/23 10:17 Dose: 17 gm Propranolol HCl (Propranolol Hcl 20 Mg Tablet) 20 mg PO TID [facility]; Protocol Last Admin: 04/11/23 09:24 Dose: 20 mg Senna/Docusate Sodium (Sennosides/Docusate Sodium Tablet) 2 tab PO BEDTIME [facility] Last Admin: 04/10/23 21:29 Dose: 1 tab Sodium Chloride (Sodium Chloride 0.65 % Nasal 44 Ml Sprbtl) 1 spray NOSTRIL-B Q1H PRN PRN Reason: Nasal Congestion Last Admin: 02/26/23 21:14 Dose: 1 spray Zolpidem Tartrate (Zolpidem Tartrate 5 Mg Tablet) 5 mg PO BEDTIME TAZ Last Admin: 04/10/23 21:32 Dose: 5 mg Allergies Allergies Allergy/AdvReac Type Severity Reaction Status Date / Time fentanyl [FENTANYL] Allergy Intermediate unknown Verified 04/08/22 07:00 Assessment & Plan Assessment & Plan (1) Major depressive disorder, recurrent severe without psychotic features: Status: Acute Code(s): F33.2 - Major depressive disorder, recurrent severe without psychotic features (2) Cognitive and neurobehavioral dysfunction following brain injury: Status: Acute Code(s): G31.89 - Other specified degenerative diseases of nervous system; F09 - Unspecified mental disorder due to known physiological condition; S06.9X9S - Unspecified intracranial injury with loss of consciousness of unspecified duration, sequela (3) Personality disorder in adult: Status: Acute Code(s): F60.9 - Personality disorder, unspecified Plan ALPRAZOLAM 0.25 B.I.D. 0.5 BEDTIME OLANZAPINE ALSO 3 TIMES A DAY CONTINUE DEPAKOTE START PROPRANOLOL 10 T.I.D. THE PATIENT CONFRONTED REGARDING NEGATIVE TOXIC BEHAVIOR DIFFICULTY COPING AND NEGATIVE COMPLICATIONS TO HIS LIFE IF CONTINUE VERBALLY AGGRESSIVE AND TOXIC BEHAVIOR WITH OTHERS DEVALUATION ENCOURAGE REFLECTION STRESS MANAGEMENT COPING STRATEGIES 03/07 continue same treatment 03/08 continue same treatment 03/09 continue same treatment 03/10/23 Lower alprazolam .125 mg bid hold afternoon olanzapine secondary to slurring oversedation cont propranolol 03/11/23 Pt doing better less sedated struggles to maintain pos attitude 03/13 continue tx. 03/14: stable presentation, no change in mgmt. 03/15: appears sedated. no change in mgmt today. to F/U with attending tomorrow re meds for anxiety. 03/16 continue tx. 03/17 continue tx. 03/18 continue tx. 03/19 continue tx. 03/22 continue tx. 03/23 continue tx. 03/24/2023 Continue treatment plan discharge planning 03/25/2023 Continue plan of care 03/26/2023 Continued discharge planning needs much reassurance 03/27 continue tx. 03/28: Continue treatment plan. 03/29: Continue current treatment plan 03/30 continue tx. 03/31 continue tx. 04/02 no changes in treatment 04/03/2023 Patient more reactive belligerent kicked out at another person and was reactive with staff and aggressive. Seems much more triggered by stimulation difficulty reflecting discussed with patient increasing olanzapine alprazolam for behavioral control 04/07/23 Cont depakote olanzpine alprazolam encourage strategies to deal with triggers d/c planning 04/08/2023 Depakote increased by 125 mg nortriptyline increased continue discharge planning CK CHEM UA CBC 04/09/23 Patient has become increasingly depressed olanzapine Depakote could not effective for dysphoria irritability case reviewed dr nelson consider ect mirtazapine 04/10 Add Ambien 5 mg at hs 04/11: Continue current treatment plan. Reason for continued inpatient stay Substantial Risk for: harm to self, inability to function and rapid decompensation Time Spent With Patient Time: Total time managing care of this patient today ____ minutes.
[2023-04-11] MEDS: Divalproex Sodium 250 MG TABLET.DR 125 MG PO (11:56)
[2023-04-11 18:00] VITALS: BP 150/86; PULSE 70; RESP 16; TEMP 36.6; O2SAT 96
[2023-04-11] MEDS: Sennosides/Docusate Sodium TABLET 2 TAB PO (20:43)
[2023-04-11] MEDS: ALPRAZolam 0.5 MG TABLET PO (20:44)
[2023-04-11] MEDS: Divalproex Sodium 250 MG TABLET.DR 750 MG PO (20:45)
[2023-04-11] MEDS: Mirtazapine 7.5 MG TABLET PO (20:46)
[2023-04-11] MEDS: Nortriptyline HCl 25 MG CAPSULE 75 MG PO (20:47)
[2023-04-11] MEDS: Latanoprost 0.005 % Ophth Sol 2.5 ML DROPS 1 DROP EYE-BOTH (20:48)
[2023-04-11] MEDS: Lidocaine 5 % Ointment 35 GM 1 APPL TOPICAL (20:51)
[2023-04-11] MEDS: Hydrocortisone 1 % Cream 28.35 GM TUBE 1 APPL TOPICAL (20:51)
[2023-04-11] MEDS: hydrOXYzine HCL 25 MG TABLET PO (23:11)
[2023-04-12 07:50] VITALS: BP 142/75; PULSE 73; RESP 20; TEMP 36.1; O2SAT 94
[2023-04-12] MEDS: OLANZapine 2.5 MG TABLET PO ×3 (08:03→21:01)
[2023-04-12] MEDS: Propranolol HCL 20 MG TABLET PO ×3 (08:03→21:01)
[2023-04-12] MEDS: Nystatin Powder 15 GM BOTTLE 1 APPL TOPICAL ×2 (08:19→21:05)
[2023-04-12] MEDS: Clotrimazole 1 % Cream 15 GM TUBE 1 APPL TOPICAL ×3 (08:19→21:27)
[2023-04-12] MEDS: Divalproex Sodium 250 MG TABLET.DR 125 MG PO (11:52)
[2023-04-12] MEDS: Ibuprofen 600 MG TABLET PO (15:23)
--- NOTE | 2023-04-12 16:32 | P.PNPSI_ITS ---
Subjective Subjective Date of Service: 04/12/23 Reason For Visit: Depression hopelessness irritability Interim History: The nursing staff reported the patient has been calm last 24 hours and not aggravating others. He can be inappropriate and instigates others. He can be irritable and intrusive towards others including staff and patients. He is dysphoric, irritable at times. On interview the patient reports that he is not doing well because of chronic back pain and requests Ibuprofen in lieu of Tylenol. He was educated that is available to him PRN. He continues frustrated that he had been in the hospital for so long. Awaiting placement Review of Systems Review of Systems unremarkable Yes all other systems are reviewed and are negative, Unobtainable due to mental condition and Unobtainable due to mental status Mental Status Exam Mental Status Exam Narrative: Patient Appearance: Appropriate Patient Orientation: Person and Situation Level of Consciousness: Awake and Appropriate Patient Behavior: Guarded and Suspicious Behavior Comments: Mood Description: Withdrawn Affect Description: Constricted Patient Cognition Impaired: Yes Ability to Follow Directions: Good Speech Pattern: Clear Memory Description: Intact Diagnostics Vital Signs (24Hr): Vital Signs - 24 hr 04/11/23 18:00 04/12/23 07:50 Temperature 97.8 F 97.0 F Pulse Rate 70 73 Respiratory Rate 16 20 Blood Pressure 150/86 H 142/75 H Pulse Oximetry 96 94 Oxygen Delivery Method Room Air Room Air BMI result Body Mass Index 30.2 Labs 04/09/23 07:59 04/09/23 07:59 Imaging Radiology Impressions: ITS Impressions Chest X-Ray 10/20/22 15:45 IMPRESSION: 1. Low lung volumes with bibasilar linear disc atelectasis versus scarring. 2. No airspace consolidation or effusion. Head CT 11/08/22 12:29 IMPRESSION: No acute intracranial hemorrhage or territorial infarction. Stable chronic postoperative changes with gliosis and encephalomalacia in the right frontal and right temporal lobes. Ex vacuo dilatation of the ventricles and diffuse parenchymal volume loss. Right-sided craniotomy changes. Chest X-Ray 11/12/22 10:32 IMPRESSION: Hypoexpanded lungs with bibasilar platelike atelectasis. Brain MRI 11/12/22 13:15 IMPRESSION: 1. No demonstrated acute intracranial abnormalities. 2. Chronic encephalomalacia of the right temporal, right frontal, and left occipital lobes. Small regions of chronic encephalomalacia in the parasagittal aspects of the bilateral parietal lobes. Moderate underlying microangiopathy and generalized cerebral volume loss. Chest X-Ray 11/14/22 15:52 IMPRESSION: Low lung volumes, bibasilar subsegmental atelectasis and slight elevation of the right hemidiaphragm similar to previous exam. Modified Barium Swallow 11/21/22 15:11 IMPRESSION: Laryngeal penetration on several occasions but no laryngeal aspiration. Mild retention of solid food in the valleculae which cleared with subsequent oral administration of water or thin barium. Correlate with speech therapy results. Orbit CT 01/23/23 14:05 IMPRESSION: - No definite significant intraorbital soft tissue findings to assessment is limited on a noncontrast CT of the orbits. No retrobulbar mass lesions and no cellulitic changes appreciated. - There are large fluid levels within the left maxillary sinus and within the right frontal sinus the can be correlated for clinical signs of acute sinusitis. - A peripherally ossified structure extending from the dorsal margin of the right nasolacrimal duct into the right maxillary sinus is stable when compared to examinations dated back to 08/24/2008 favoring a benign etiology. Cervical Spine CT 02/14/23 22:15 IMPRESSION: 1. No acute intracranial abnormality. Stable postsurgical changes with right frontotemporal encephalomalacia, global volume loss, and extraocular dilatation of the right lateral ventricle. 2. No cervical spine fracture or traumatic malalignment. Head CT 02/14/23 22:15 IMPRESSION: 1. No acute intracranial abnormality. Stable postsurgical changes with right frontotemporal encephalomalacia, global volume loss, and extraocular dilatation of the right lateral ventricle. 2. No cervical spine fracture or traumatic malalignment. Hip/Pelvis X-Ray 02/14/23 22:25 IMPRESSION: Moderate degenerative changes of the right hip with loss of superolateral joint space. Similar chronic posttraumatic deformity of the right femoral neck with chronic foreshortening. Status post left total hip arthroplasty in unchanged alignment however the lack of a crosstable lateral view limits assessment for dislocation. No acute fracture or dislocation appreciated on the available views. Foot X-Ray 02/22/23 13:50 IMPRESSION: * Postsurgical changes of arthrodesis first metatarsophalangeal joint. * There is developed large osteophyte from the head of the first metatarsal protruding laterally abutting the head of the second metatarsal. This might be the source of patient's pain. * Underlying degenerative osteoarthritis. Foot X-Ray 02/23/23 14:11 IMPRESSION: Mild degenerative changes MTP, PIP and DIP joints. No visible acute fracture or dislocation seen. Medications Medications Current Medications Acetaminophen (Acetaminophen 325 Mg Tablet) 975 mg PO Q6H PRN PRN Reason: Headache/Pain Mild Scale (1-3) Last Admin: 04/10/23 21:56 Dose: 975 mg Alprazolam (Alprazolam 0.5 Mg Tablet) 0.5 mg PO BEDTIME TAZ Last Admin: 04/11/23 20:44 Dose: 0.5 mg Artificial Tears (Artificial Tears 15 Ml Drops) 1 drop EYE-BOTH Q2H PRN PRN Reason: Dry Eyes Last Admin: 04/10/23 13:34 Dose: 1 drop Bisacodyl (Bisacodyl 10 Mg Supp.Rect) 10 mg [place] DAILY PRN PRN Reason: Constipation Clotrimazole (Clotrimazole 1 % Cream 15 Gm Tube) 1 appl TOPICAL BID [facility]; Pr otocol Last Admin: 04/12/23 08:19 Dose: 1 appl Divalproex Sodium (Divalproex Sodium 250 Mg Tablet.) 750 mg PO BEDTIME TAZ Last Admin: 04/11/23 20:45 Dose: 750 mg Divalproex Sodium (Divalproex Sodium 250 Mg Tablet.Dr) 125 mg PO DAILY@1200 [facility] Last Admin: 04/12/23 11:52 Dose: 125 mg Guaifenesin/Dextromethorphan (Guaifenesin Dm 100/10/5 Ml 5 Ml Syrup) 5 ml PO Q4H PRN PRN Reason: cough Last Admin: 03/27/23 22:10 Dose: 5 ml Hydrocortisone (Hydrocortisone 1 % Cream 28.35 Gm Tube) 1 appl TOPICAL BID PRN; Protocol PRN Reason: itchy feet Last Admin: 04/11/23 20:51 Dose: 1 appl Hydroxyzine HCl (Hydroxyzine Hcl 25 Mg Tablet) 25 mg PO Q4H PRN PRN Reason: Anxiety Last Admin: 04/11/23 23:11 Dose: 25 mg Ibuprofen (Ibuprofen 600 Mg Tablet) 600 mg PO Q6H PRN PRN Reason: Pain, Moderate(Pain Scale 4-6) Last Admin: 04/12/23 15:23 Dose: 600 mg Latanoprost (Latanoprost 0.005 % Ophth No 2.5 Ml Drops) 1 drop EYE-BOTH BEDTIME [facility] Last Admin: 04/11/23 20:48 Dose: 1 drop Lidocaine (Lidocaine 5 % Ointment 35 Gm) 1 appl TOPICAL Q6H PRN; Protocol PRN Reason: pain r foot Last Admin: 04/11/23 20:51 Dose: 1 appl Magnesium Hydroxide (Milk Of Magnesia 30 Ml Oral.Susp) 30 ml PO BID PRN PRN Reason: constipation, stomach/GI upset Last Admin: 04/06/23 21:24 Dose: 30 ml Mirtazapine (Mirtazapine 7.5 Mg Tablet) 7.5 mg PO BEDTIME TAZ Last Admin: 04/11/23 20:46 Dose: 7.5 mg Nortriptyline HCl (Nortriptyline Hcl 25 Mg Capsule) 75 mg PO BEDTIME [facility]Z Last Admin: 04/11/23 20:47 Dose: 75 mg Nystatin (Nystatin Powder 15 Gm Bottle) 1 appl TOPICAL BID [facility]; Protocol Last Admin: 04/12/23 08:19 Dose: 1 appl Olanzapine (Olanzapine 2.5 Mg Tablet) 2.5 mg PO Q4H PRN PRN Reason: anxiety/restlessness Last Admin: 03/30/23 00:02 Dose: 2.5 mg Olanzapine (Olanzapine 2.5 Mg Tablet) 2.5 mg PO TID TAZ Last Admin: 04/12/23 15:24 Dose: 2.5 mg Ondansetron HCl (Ondansetron Odt 4 Mg Tab.Rapdis) 4 mg TRANSLINGU Q6H PRN PRN Reason: Nausea and Vomiting Last Admin: 03/20/23 09:13 Dose: 4 mg Polyethylene Glycol (Polyethylene Glycol 3350 17 Gm Powd.Pack) 17 gm PO DAILY PRN PRN Reason: Constipation Last Admin: 04/11/23 10:17 Dose: 17 gm Propranolol HCl (Propranolol Hcl 20 Mg Tablet) 20 mg PO TID [facility]; Protocol Last Admin: 04/12/23 15:24 Dose: 20 mg Senna/Docusate Sodium (Sennosides/Docusate Sodium Tablet) 2 tab PO BEDTIME [facility] Last Admin: 04/11/23 20:43 Dose: 1 tab Sodium Chloride (Sodium Chloride 0.65 % Nasal 44 Ml Sprbtl) 1 spray NOSTRIL-B Q1H PRN PRN Reason: Nasal Congestion Last Admin: 02/26/23 21:14 Dose: 1 spray Zolpidem Tartrate (Zolpidem Tartrate 5 Mg Tablet) 5 mg PO BEDTIME [facility] Last Admin: 04/11/23 23:15 Dose: Not Given Allergies Allergies Allergy/AdvReac Type Severity Reaction Status Date / Time fentanyl [FENTANYL] Allergy Intermediate unknown Verified 04/08/22 07:00 Assessment & Plan Assessment & Plan (1) Major depressive disorder, recurrent severe without psychotic features: Status: Acute Code(s): F33.2 - Major depressive disorder, recurrent severe without psychotic features (2) Cognitive and neurobehavioral dysfunction following brain injury: Status: Acute Code(s): G31.89 - Other specified degenerative diseases of nervous system; F09 - Unspecified mental disorder due to known physiological condition; S06.9X9S - Unspecified intracranial injury with loss of consciousness of unspecified duration, sequela (3) Personality disorder in adult: Status: Acute Code(s): F60.9 - Personality disorder, unspecified Plan ALPRAZOLAM 0.25 B.I.D. 0.5 BEDTIME OLANZAPINE ALSO 3 TIMES A DAY CONTINUE DEPAKOTE START PROPRANOLOL 10 T.I.D. THE PATIENT CONFRONTED REGARDING NEGATIVE TOXIC BEHAVIOR DIFFICULTY COPING AND NEGATIVE COMPLICATIONS TO HIS LIFE IF CONTINUE VERBALLY AGGRESSIVE AND TOXIC BEHAVIOR WITH OTHERS DEVALUATION ENCOURAGE REFLECTION STRESS MANAGEMENT COPING STRATEGIES 03/07 continue same treatment 03/08 continue same treatment 03/09 continue same treatment 03/10/23 Lower alprazolam .125 mg bid hold afternoon olanzapine secondary to slurring oversedation cont propranolol 03/11/23 Pt doing better less sedated struggles to maintain pos attitude 03/13 continue tx. 03/14: stable presentation, no change in mgmt. 03/15: appears sedated. no change in mgmt today. to F/U with attending tomorrow re meds for anxiety. 03/16 continue tx. 03/17 continue tx. 03/18 continue tx. 03/19 continue tx. 03/22 continue tx. 03/23 continue tx. 03/24/2023 Continue treatment plan discharge planning 03/25/2023 Continue plan of care 03/26/2023 Continued discharge planning needs much reassurance 03/27 continue tx. 03/28: Continue treatment plan. 03/29: Continue current treatment plan 03/30 continue tx. 03/31 continue tx. 04/02 no changes in treatment 04/03/2023 Patient more reactive belligerent kicked out at another person and was reactive with staff and aggressive. Seems much more triggered by stimulation difficulty reflecting discussed with patient increasing olanzapine alprazolam for behavioral control 04/07/23 Cont depakote olanzpine alprazolam encourage strategies to deal with triggers d/c planning 04/08/2023 Depakote increased by 125 mg nortriptyline increased continue discharge planning CK CHEM UA CBC 04/09/23 Patient has become increasingly depressed olanzapine Depakote could not effective for dysphoria irritability case reviewed dr nelson consider ect mirtazapine 04/10 Add Ambien 5 mg at hs 04/11: Continue current treatment plan. 04/12: Continue current treatment plan. Reason for continued inpatient stay Substantial Risk for: inability to function and rapid decompensation Time Spent With Patient Time: Total time managing care of this patient today ____ minutes.
[2023-04-12 18:00] VITALS: BP 126/71; PULSE 63; RESP 16; TEMP 36.2; O2SAT 95
[2023-04-12] MEDS: Nortriptyline HCl 25 MG CAPSULE 75 MG PO (20:59)
[2023-04-12] MEDS: ALPRAZolam 0.5 MG TABLET PO (21:00)
[2023-04-12] MEDS: Mirtazapine 7.5 MG TABLET PO (21:01)
[2023-04-12] MEDS: Sennosides/Docusate Sodium TABLET 2 TAB PO (21:02)
[2023-04-12] MEDS: Acetaminophen 325 MG TABLET 975 MG PO (21:03)
[2023-04-12] MEDS: Latanoprost 0.005 % Ophth Sol 2.5 ML DROPS 1 DROP EYE-BOTH (21:06)
[2023-04-12] MEDS: Lidocaine 5 % Ointment 35 GM 1 APPL TOPICAL (21:27)
[2023-04-12] MEDS: Hydrocortisone 1 % Cream 28.35 GM TUBE 1 APPL TOPICAL (21:27)
[2023-04-13] MEDS: Acetaminophen 325 MG TABLET 975 MG PO (04:58)
[2023-04-13] MEDS: Ibuprofen 600 MG TABLET PO (05:00)
[2023-04-13] MEDS: hydrOXYzine HCL 25 MG TABLET PO (05:01)
[2023-04-13 08:05] VITALS: BP 142/71; PULSE 65; RESP 18; TEMP 36.8; O2SAT 99
[2023-04-13] MEDS: OLANZapine 2.5 MG TABLET PO ×3 (08:20→21:41)
[2023-04-13] MEDS: Propranolol HCL 20 MG TABLET PO ×3 (08:21→21:41)
[2023-04-13] MEDS: Nystatin Powder 15 GM BOTTLE 1 APPL TOPICAL ×2 (08:31→21:41)
--- NOTE | 2023-04-13 09:52 | P.PNPSI_ITS ---
Subjective Subjective Date of Service: 04/13/23 Reason For Visit: Depression hopelessness irritability Interim History: The nursing staff reported the patient has been calm last 48 hours and not aggravating others. He can be inappropriate and instigates others. He can be irritable and intrusive towards others including staff and patients. He is dysphoric, irritable at times. He continues frustrated that he had been in the hospital for so long. Awaiting placement Review of Systems Review of Systems unremarkable Yes all other systems are reviewed and are negative, Unobtainable due to mental condition and Unobtainable due to mental status Mental Status Exam Mental Status Exam Narrative: Patient Appearance: Appropriate Patient Orientation: Person and Situation Level of Consciousness: Awake and Appropriate Patient Behavior: Guarded and Suspicious Behavior Comments: Mood Description: Withdrawn Affect Description: Constricted Patient Cognition Impaired: Yes Ability to Follow Directions: Good Speech Pattern: Clear Memory Description: Intact Diagnostics Vital Signs (24Hr): Vital Signs - 24 hr 04/12/23 18:00 04/13/23 08:05 Temperature 97.2 F 98.2 F Pulse Rate 63 65 Respiratory Rate 16 18 Blood Pressure 126/71 142/71 H Pulse Oximetry 95 99 Oxygen Delivery Method Room Air Room Air BMI result Body Mass Index 30.2 Labs 04/09/23 07:59 04/09/23 07:59 Imaging Radiology Impressions: ITS Impressions Chest X-Ray 10/20/22 15:45 IMPRESSION: 1. Low lung volumes with bibasilar linear disc atelectasis versus scarring. 2. No airspace consolidation or effusion. Head CT 11/08/22 12:29 IMPRESSION: No acute intracranial hemorrhage or territorial infarction. Stable chronic postoperative changes with gliosis and encephalomalacia in the right frontal and right temporal lobes. Ex vacuo dilatation of the ventricles and diffuse parenchymal volume loss. Right-sided craniotomy changes. Chest X-Ray 11/12/22 10:32 IMPRESSION: Hypoexpanded lungs with bibasilar platelike atelectasis. Brain MRI 11/12/22 13:15 IMPRESSION: 1. No demonstrated acute intracranial abnormalities. 2. Chronic encephalomalacia of the right temporal, right frontal, and left occipital lobes. Small regions of chronic encephalomalacia in the parasagittal aspects of the bilateral parietal lobes. Moderate underlying microangiopathy and generalized cerebral volume loss. Chest X-Ray 11/14/22 15:52 IMPRESSION: Low lung volumes, bibasilar subsegmental atelectasis and slight elevation of the right hemidiaphragm similar to previous exam. Modified Barium Swallow 11/21/22 15:11 IMPRESSION: Laryngeal penetration on several occasions but no laryngeal aspiration. Mild retention of solid food in the valleculae which cleared with subsequent oral administration of water or thin barium. Correlate with speech therapy results. Orbit CT 01/23/23 14:05 IMPRESSION: - No definite significant intraorbital soft tissue findings to assessment is limited on a noncontrast CT of the orbits. No retrobulbar mass lesions and no cellulitic changes appreciated. - There are large fluid levels within the left maxillary sinus and within the right frontal sinus the can be correlated for clinical signs of acute sinusitis. - A peripherally ossified structure extending from the dorsal margin of the right nasolacrimal duct into the right maxillary sinus is stable when compared to examinations dated back to 08/24/2008 favoring a benign etiology. Cervical Spine CT 02/14/23 22:15 IMPRESSION: 1. No acute intracranial abnormality. Stable postsurgical changes with right frontotemporal encephalomalacia, global volume loss, and extraocular dilatation of the right lateral ventricle. 2. No cervical spine fracture or traumatic malalignment. Head CT 02/14/23 22:15 IMPRESSION: 1. No acute intracranial abnormality. Stable postsurgical changes with right frontotemporal encephalomalacia, global volume loss, and extraocular dilatation of the right lateral ventricle. 2. No cervical spine fracture or traumatic malalignment. Hip/Pelvis X-Ray 02/14/23 22:25 IMPRESSION: Moderate degenerative changes of the right hip with loss of superolateral joint space. Similar chronic posttraumatic deformity of the right femoral neck with chronic foreshortening. Status post left total hip arthroplasty in unchanged alignment however the lack of a crosstable lateral view limits assessment for dislocation. No acute fracture or dislocation appreciated on the available views. Foot X-Ray 02/22/23 13:50 IMPRESSION: * Postsurgical changes of arthrodesis first metatarsophalangeal joint. * There is developed large osteophyte from the head of the first metatarsal protruding laterally abutting the head of the second metatarsal. This might be the source of patient's pain. * Underlying degenerative osteoarthritis. Foot X-Ray 02/23/23 14:11 IMPRESSION: Mild degenerative changes MTP, PIP and DIP joints. No visible acute fracture or dislocation seen. Medications Medications Current Medications Acetaminophen (Acetaminophen 325 Mg Tablet) 975 mg PO Q6H PRN PRN Reason: Headache/Pain Mild Scale (1-3) Last Admin: 04/13/23 04:58 Dose: 975 mg Alprazolam (Alprazolam 0.25 Mg Tablet) 0.25 mg PO BEDTIME PRN PRN Reason: Insomnia Artificial Tears (Artificial Tears 15 Ml Drops) 1 drop EYE-BOTH Q2H PRN PRN Reason: Dry Eyes Last Admin: 04/10/23 13:34 Dose: 1 drop Bisacodyl (Bisacodyl 10 Mg Supp.Rect) 10 mg [place] DAILY PRN PRN Reason: Constipation Clotrimazole (Clotrimazole 1 % Cream 15 Gm Tube) 1 appl TOPICAL BID TAZ; P rotocol Last Admin: 04/12/23 21:27 Dose: 1 appl Divalproex Sodium (Divalproex Sodium 250 Mg Tablet.) 750 mg PO BEDTIME TAZ Last Admin: 04/12/23 20:58 Dose: 750 mg Divalproex Sodium (Divalproex Sodium 250 Mg Tablet.) 125 mg PO DAILY@1200 TAZ Last Admin: 04/12/23 11:52 Dose: 125 mg Guaifenesin/Dextromethorphan (Guaifenesin Dm 100/10/5 Ml 5 Ml Syrup) 5 ml PO Q4H PRN PRN Reason: cough Last Admin: 03/27/23 22:10 Dose: 5 ml Hydrocortisone (Hydrocortisone 1 % Cream 28.35 Gm Tube) 1 appl TOPICAL BID PRN; Protocol PRN Reason: itchy feet Last Admin: 04/12/23 21:27 Dose: 1 appl Hydroxyzine HCl (Hydroxyzine Hcl 25 Mg Tablet) 25 mg PO Q4H PRN PRN Reason: Anxiety Last Admin: 04/13/23 05:01 Dose: 25 mg Ibuprofen (Ibuprofen 600 Mg Tablet) 600 mg PO Q6H PRN PRN Reason: Pain, Moderate(Pain Scale 4-6) Last Admin: 04/13/23 05:00 Dose: 600 mg Latanoprost (Latanoprost 0.005 % Ophth No 2.5 Ml Drops) 1 drop EYE-BOTH BEDTIME TAZ Last Admin: 04/12/23 21:06 Dose: 1 drop Lidocaine (Lidocaine 5 % Ointment 35 Gm) 1 appl TOPICAL Q6H PRN; Protocol PRN Reason: pain r foot Last Admin: 04/12/23 21:27 Dose: 1 appl Magnesium Hydroxide (Milk Of Magnesia 30 Ml Oral.Susp) 30 ml PO BID PRN PRN Reason: constipation, stomach/GI upset Last Admin: 04/06/23 21:24 Dose: 30 ml Mirtazapine (Mirtazapine 7.5 Mg Tablet) 7.5 mg PO BEDTIME TAZ Last Admin: 04/12/23 21:01 Dose: 7.5 mg Nortriptyline HCl (Nortriptyline Hcl 25 Mg Capsule) 75 mg PO BEDTIME TAZ Last Admin: 04/12/23 20:59 Dose: 75 mg Nystatin (Nystatin Powder 15 Gm Bottle) 1 appl TOPICAL BID TAZ; Protocol Last Admin: 04/13/23 08:31 Dose: 1 appl Olanzapine (Olanzapine 2.5 Mg Tablet) 2.5 mg PO Q4H PRN PRN Reason: anxiety/restlessness Last Admin: 03/30/23 00:02 Dose: 2.5 mg Olanzapine (Olanzapine 2.5 Mg Tablet) 2.5 mg PO TID TAZ Last Admin: 04/13/23 08:20 Dose: 2.5 mg Ondansetron HCl (Ondansetron Odt 4 Mg Tab.Rapdis) 4 mg TRANSLINGU Q6H PRN PRN Reason: Nausea and Vomiting Last Admin: 03/20/23 09:13 Dose: 4 mg Polyethylene Glycol (Polyethylene Glycol 3350 17 Gm Powd.Pack) 17 gm PO DAILY PRN PRN Reason: Constipation Last Admin: 04/11/23 10:17 Dose: 17 gm Propranolol HCl (Propranolol Hcl 20 Mg Tablet) 20 mg PO TID TAZ; Protocol Last Admin: 04/13/23 08:21 Dose: 20 mg Senna/Docusate Sodium (Sennosides/Docusate Sodium Tablet) 2 tab PO BEDTIME TAZ Last Admin: 04/12/23 21:02 Dose: 1 tab Sodium Chloride (Sodium Chloride 0.65 % Nasal 44 Ml Sprbtl) 1 spray NOSTRIL-B Q1H PRN PRN Reason: Nasal Congestion Last Admin: 02/26/23 21:14 Dose: 1 spray Zolpidem Tartrate (Zolpidem Tartrate 5 Mg Tablet) 5 mg PO BEDTIME TAZ Last Admin: 04/13/23 00:37 Dose: Not Given Allergies Allergies Allergy/AdvReac Type Severity Reaction Status Date / Time fentanyl [FENTANYL] Allergy Intermediate unknown Verified 04/08/22 07:00 Assessment & Plan Assessment & Plan (1) Major depressive disorder, recurrent severe without psychotic features: Status: Acute Code(s): F33.2 - Major depressive disorder, recurrent severe without psychotic features (2) Cognitive and neurobehavioral dysfunction following brain injury: Status: Acute Code(s): G31.89 - Other specified degenerative diseases of nervous system; F09 - Unspecified mental disorder due to known physiological condition; S06.9X9S - Unspecified intracranial injury with loss of consciousness of unspecified duration, sequela (3) Personality disorder in adult: Status: Acute Code(s): F60.9 - Personality disorder, unspecified Plan ALPRAZOLAM 0.25 B.I.D. 0.5 BEDTIME OLANZAPINE ALSO 3 TIMES A DAY CONTINUE DEPAKOTE START PROPRANOLOL 10 T.I.D. THE PATIENT CONFRONTED REGARDING NEGATIVE TOXIC BEHAVIOR DIFFICULTY COPING AND NEGATIVE COMPLICATIONS TO HIS LIFE IF CONTINUE VERBALLY AGGRESSIVE AND TOXIC BEHAVIOR WITH OTHERS DEVALUATION ENCOURAGE REFLECTION STRESS MANAGEMENT COPING STRATEGIES 03/07 continue same treatment 03/08 continue same treatment 03/09 continue same treatment 03/10/23 Lower alprazolam .125 mg bid hold afternoon olanzapine secondary to slurring ove rsedation cont propranolol 03/11/23 Pt doing better less sedated struggles to maintain pos attitude 03/13 continue tx. 03/14: stable presentation, no change in mgmt. 03/15: appears sedated. no change in mgmt today. to F/U with attending tomorrow re meds for anxiety. 03/16 continue tx. 03/17 continue tx. 03/18 continue tx. 03/19 continue tx. 03/22 continue tx. 03/23 continue tx. 03/24/2023 Continue treatment plan discharge planning 03/25/2023 Continue plan of care 03/26/2023 Continued discharge planning needs much reassurance 03/27 continue tx. 03/28: Continue treatment plan. 03/29: Continue current treatment plan 03/30 continue tx. 03/31 continue tx. 04/02 no changes in treatment 04/03/2023 Patient more reactive belligerent kicked out at another person and was reactive with staff and aggressive. Seems much more triggered by stimulation difficulty reflecting discussed with patient increasing olanzapine alprazolam for behavioral control 04/07/23 Cont depakote olanzpine alprazolam encourage strategies to deal with triggers d/c planning 04/08/2023 Depakote increased by 125 mg nortriptyline increased continue discharge planning CK CHEM UA CBC 04/09/23 Patient has become increasingly depressed olanzapine Depakote could not effective for dysphoria irritability case reviewed dr nelson consider ect mirtazapine 04/10 Add Ambien 5 mg at hs 04/11: Continue current treatment plan. 04/12: Continue current treatment plan. 04/13: Continue current plan of care. Reason for continued inpatient stay Substantial Risk for: harm to self, inability to function and rapid decompensation Time Spent With Patient Time: Total time managing care of this patient today ____ minutes.
[2023-04-13] MEDS: Divalproex Sodium 250 MG TABLET.DR 125 MG PO (12:00)
[2023-04-13] MEDS: polyethylene glycoL 3350 17 GM POWD.PACK PO (12:19)
[2023-04-13 18:00] VITALS: BP 114/68; PULSE 66; RESP 18; TEMP 36.1; O2SAT 95
[2023-04-13] MEDS: Nortriptyline HCl 25 MG CAPSULE 75 MG PO (21:38)
[2023-04-13] MEDS: Sennosides/Docusate Sodium TABLET 2 TAB PO (21:39)
[2023-04-13] MEDS: Zolpidem Tartrate 5 MG TABLET PO (21:39)
[2023-04-13] MEDS: Mirtazapine 7.5 MG TABLET PO (21:41)
[2023-04-13] MEDS: Latanoprost 0.005 % Ophth Sol 2.5 ML DROPS 1 DROP EYE-BOTH (21:41)
[2023-04-13] MEDS: Divalproex Sodium 250 MG TABLET.DR 750 MG PO (21:43)
[2023-04-13] MEDS: Lidocaine 5 % Ointment 35 GM 1 APPL TOPICAL (21:55)
[2023-04-14] MEDS: hydrOXYzine HCL 25 MG TABLET PO (01:25)
[2023-04-14 08:15] VITALS: BP 129/77; TEMP 35.6; O2SAT 98
[2023-04-14] MEDS: Propranolol HCL 20 MG TABLET PO ×3 (08:25→21:23)
[2023-04-14] MEDS: OLANZapine 2.5 MG TABLET PO ×3 (08:26→21:21)
[2023-04-14] MEDS: Nystatin Powder 15 GM BOTTLE 1 APPL TOPICAL ×3 (12:26→21:48)
[2023-04-14] MEDS: Clotrimazole 1 % Cream 15 GM TUBE 1 APPL TOPICAL ×2 (12:26→23:04)
[2023-04-14] MEDS: Divalproex Sodium 250 MG TABLET.DR 125 MG PO (12:28)
[2023-04-14] MEDS: Ibuprofen 600 MG TABLET PO (13:20)
[2023-04-14 14:43] VITALS: BP 129/74; PULSE 61
--- NOTE | 2023-04-14 15:34 | HO.PSYCHPN ---
Subjective Subjective Date of Service: 04/14/23 Reason For Visit: Depression hopelessness irritability Subjective Notes: Conditional Voluntary Interim History: doing somewhat better less labilie Medication Compliance: Yes Mental Status Exam Mental Status Exam Narrative: Patient Appearance: Appropriate Patient Orientation: Person and Situation Level of Consciousness: Awake and Appropriate Patient Behavior: Guarded and Suspicious Behavior Comments: Mood Description: Withdrawn Affect Description: Constricted Patient Cognition Impaired: Yes Ability to Follow Directions: Good Speech Pattern: Clear Memory Description: Intact Diagnostics Vital Signs (24Hr): Vital Signs - 24 hr 04/13/23 18:00 04/14/23 08:15 04/14/23 14:43 Temperature 96.9 F 96.1 F L Pulse Rate 66 61 Respiratory Rate 18 Blood Pressure 114/68 129/77 129/74 Pulse Oximetry 95 98 Oxygen Delivery Method Room Air Room Air BMI result Body Mass Index 30.2 Labs 04/09/23 07:59 04/09/23 07:59 Imaging Radiology Impressions: ITS Impressions Chest X-Ray 10/20/22 15:45 IMPRESSION: 1. Low lung volumes with bibasilar linear disc atelectasis versus scarring. 2. No airspace consolidation or effusion. Head CT 11/08/22 12:29 IMPRESSION: No acute intracranial hemorrhage or territorial infarction. Stable chronic postoperative changes with gliosis and encephalomalacia in the right frontal and right temporal lobes. Ex vacuo dilatation of the ventricles and diffuse parenchymal volume loss. Right-sided craniotomy changes. Chest X-Ray 11/12/22 10:32 IMPRESSION: Hypoexpanded lungs with bibasilar platelike atelectasis. Brain MRI 11/12/22 13:15 IMPRESSION: 1. No demonstrated acute intracranial abnormalities. 2. Chronic encephalomalacia of the right temporal, right frontal, and left occipital lobes. Small regions of chronic encephalomalacia in the parasagittal aspects of the bilateral parietal lobes. Moderate underlying microangiopathy and generalized cerebral volume loss. Chest X-Ray 11/14/22 15:52 IMPRESSION: Low lung volumes, bibasilar subsegmental atelectasis and slight elevation of the right hemidiaphragm similar to previous exam. Modified Barium Swallow 11/21/22 15:11 IMPRESSION: Laryngeal penetration on several occasions but no laryngeal aspiration. Mild retention of solid food in the valleculae which cleared with subsequent oral administration of water or thin barium. Correlate with speech therapy results. Orbit CT 01/23/23 14:05 IMPRESSION: - No definite significant intraorbital soft tissue findings to assessment is limited on a noncontrast CT of the orbits. No retrobulbar mass lesions and no cellulitic changes appreciated. - There are large fluid levels within the left maxillary sinus and within the right frontal sinus the can be correlated for clinical signs of acute sinusitis. - A peripherally ossified structure extending from the dorsal margin of the right nasolacrimal duct into the right maxillary sinus is stable when compared to examinations dated back to 08/24/2008 favoring a benign etiology. Cervical Spine CT 02/14/23 22:15 IMPRESSION: 1. No acute intracranial abnormality. Stable postsurgical changes with right frontotemporal encephalomalacia, global volume loss, and extraocular dilatation of the right lateral ventricle. 2. No cervical spine fracture or traumatic malalignment. Head CT 02/14/23 22:15 IMPRESSION: 1. No acute intracranial abnormality. Stable postsurgical changes with right frontotemporal encephalomalacia, global volume loss, and extraocular dilatation of the right lateral ventricle. 2. No cervical spine fracture or traumatic malalignment. Hip/Pelvis X-Ray 02/14/23 22:25 IMPRESSION: Moderate degenerative changes of the right hip with loss of superolateral joint space. Similar chronic posttraumatic deformity of the right femoral neck with chronic foreshortening. Status post left total hip arthroplasty in unchanged alignment however the lack of a crosstable lateral view limits assessment for dislocation. No acute fracture or dislocation appreciated on the available views. Foot X-Ray 02/22/23 13:50 IMPRESSION: * Postsurgical changes of arthrodesis first metatarsophalangeal joint. * There is developed large osteophyte from the head of the first metatarsal protruding laterally abutting the head of the second metatarsal. This might be the source of patient's pain. * Underlying degenerative osteoarthritis. Foot X-Ray 02/23/23 14:11 IMPRESSION: Mild degenerative changes MTP, PIP and DIP joints. No visible acute fracture or dislocation seen. Medications Medications Current Medications Acetaminophen (Acetaminophen 325 Mg Tablet) 975 mg PO Q6H PRN PRN Reason: Headache/Pain Mild Scale (1-3) Last Admin: 04/13/23 04:58 Dose: 975 mg Alprazolam (Alprazolam 0.25 Mg Tablet) 0.25 mg PO BEDTIME PRN PRN Reason: Insomnia Artificial Tears (Artificial Tears 15 Ml Drops) 1 drop EYE-BOTH Q2H PRN PRN Reason: Dry Eyes Last Admin: 04/10/23 13:34 Dose: 1 drop Bisacodyl (Bisacodyl 10 Mg Supp.Rect) [address] DAILY PRN PRN Reason: Constipation Clotrimazole (Clotrimazole 1 % Cream 15 Gm Tube) 1 appl TOPICAL BID TAZ; Protocol Last Admin: 04/14/23 12:26 Dose: 1 appl Divalproex Sodium (Divalproex Sodium 250 Mg Tablet.) 750 mg PO BEDTIME TAZ Last Admin: 04/14/23 09:18 Dose: Not Given Divalproex Sodium (Divalproex Sodium 250 Mg Tablet.Dr) 125 mg PO DAILY@1200 TAZ Last Admin: 04/14/23 12:28 Dose: 125 mg Guaifenesin/Dextromethorphan (Guaifenesin Dm 100/10/5 Ml 5 Ml Syrup) 5 ml PO Q4H PRN PRN Reason: cough Last Admin: 03/27/23 22:10 Dose: 5 ml Hydrocortisone (Hydrocortisone 1 % Cream 28.35 Gm Tube) 1 appl TOPICAL BID PRN; Protocol PRN Reason: itchy feet Last Admin: 04/12/23 21:27 Dose: 1 appl Hydroxyzine HCl (Hydroxyzine Hcl 25 Mg Tablet) 25 mg PO Q4H PRN PRN Reason: Anxiety Last Admin: 04/14/23 01:25 Dose: 25 mg Ibuprofen (Ibuprofen 600 Mg Tablet) 600 mg PO Q6H PRN PRN Reason: Pain, Moderate(Pain Scale 4-6) Last Admin: 04/14/23 13:20 Dose: 600 mg Latanoprost (Latanoprost 0.005 % Ophth No 2.5 Ml Drops) 1 drop EYE-BOTH BEDTIME TAZ Last Admin: 04/13/23 21:41 Dose: 1 drop Lidocaine (Lidocaine 5 % Ointment 35 Gm) 1 appl TOPICAL Q6H PRN; Protocol PRN Reason: pain r foot Last Admin: 04/13/23 21:55 Dose: 1 appl Magnesium Hydroxide (Milk Of Magnesia 30 Ml Oral.Susp) 30 ml PO BID PRN PRN Reason: constipation, stomach/GI upset Last Admin: 04/06/23 21:24 Dose: 30 ml Mirtazapine (Mirtazapine 7.5 Mg Tablet) 7.5 mg PO BEDTIME [facility] Last Admin: 04/13/23 21:41 Dose: 7.5 mg Nortriptyline HCl (Nortriptyline Hcl 25 Mg Capsule) 75 mg PO BEDTIME [facility] Last Admin: 04/13/23 21:38 Dose: 75 mg Nystatin (Nystatin Powder 15 Gm Bottle) 1 appl TOPICAL BID [facility]; Protocol Last Admin: 04/14/23 12:26 Dose: 1 appl Olanzapine (Olanzapine 2.5 Mg Tablet) 2.5 mg PO Q4H PRN PRN Reason: anxiety/restlessness Last Admin: 03/30/23 00:02 Dose: 2.5 mg Olanzapine (Olanzapine 2.5 Mg Tablet) 2.5 mg PO TID [facility] Last Admin: 04/14/23 14:50 Dose: 2.5 mg Ondansetron HCl (Ondansetron Odt 4 Mg Tab.Rapdis) 4 mg TRANSLINGU Q6H PRN PRN Reason: Nausea and Vomiting Last Admin: 03/20/23 09:13 Dose: 4 mg Polyethylene Glycol (Polyethylene Glycol 3350 17 Gm Powd.Pack) 17 gm PO DAILY PRN PRN Reason: Constipation Last Admin: 04/13/23 12:19 Dose: 17 gm Propranolol HCl (Propranolol Hcl 20 Mg Tablet) 20 mg PO TID [facility]; Protocol Last Admin: 04/14/23 14:49 Dose: 20 mg Senna/Docusate Sodium (Sennosides/Docusate Sodium Tablet) 2 tab PO BEDTIME TAZ Last Admin: 04/13/23 21:39 Dose: 1 tab Sodium Chloride (Sodium Chloride 0.65 % Nasal 44 Ml Sprbtl) 1 spray NOSTRIL-B Q1H PRN PRN Reason: Nasal Congestion Last Admin: 02/26/23 21:14 Dose: 1 spray Zolpidem Tartrate (Zolpidem Tartrate 5 Mg Tablet) 5 mg PO BEDTIME [facility] Last Admin: 04/13/23 21:39 Dose: 5 mg Allergies Allergies Allergy/AdvReac Type Severity Reaction Status Date / Time fentanyl [FENTANYL] Allergy Intermediate unknown Verified 04/08/22 07:00 Assessment & Plan Assessment & Plan (1) Major depressive disorder, recurrent severe without psychotic features: Status: Acute Code(s): F33.2 - Major depressive disorder, recurrent severe without psychotic features (2) Cognitive and neurobehavioral dysfunction following brain injury: Status: Acute Code(s): G31.89 - Other specified degenerative diseases of nervous system; F09 - Unspecified mental disorder due to known physiological condition; S06.9X9S - Unspecified intracranial injury with loss of consciousness of unspecified duration, sequela (3) Personality disorder in adult: Status: Acute Code(s): F60.9 - Personality disorder, unspecified Plan ALPRAZOLAM 0.25 B.I.D. 0.5 BEDTIME OLANZAPINE ALSO 3 TIMES A DAY CONTINUE DEPAKOTE START PROPRANOLOL 10 T.I.D. THE PATIENT CONFRONTED REGARDING NEGATIVE TOXIC BEHAVIOR DIFFICULTY COPING AND NEGATIVE COMPLICATIONS TO HIS LIFE IF CONTINUE VERBALLY AGGRESSIVE AND TOXIC BEHAVIOR WITH OTHERS DEVALUATION ENCOURAGE REFLECTION STRESS MANAGEMENT COPING STRATEGIES 03/07 continue same treatment 03/08 continue same treatment 03/09 continue same treatment 03/10/23 Lower alprazolam .125 mg bid hold afternoon olanzapine secondary to slurring oversedation cont propranolol 03/11/23 Pt doing better less sedated struggles to maintain pos attitude 03/13 continue tx. 03/14: stable presentation, no change in mgmt. 03/15: appears sedated. no change in mgmt today. to F/U with attending tomorrow re meds for anxiety. 03/16 continue tx. 03/17 continue tx. 03/18 continue tx. 03/19 continue tx. 03/22 continue tx. 03/23 continue tx. 03/24/2023 Continue treatment plan discharge planning 03/25/2023 Continue plan of care 03/26/2023 Continued discharge planning needs much reassurance 03/27 continue tx. 03/28: Continue treatment plan. 03/29: Continue current treatment plan 03/30 continue tx. 03/31 continue tx. 04/02 no changes in treatment 04/03/2023 Patient more reactive belligerent kicked out at another person and was reactive with staff and aggressive. Seems much more triggered by stimulation difficulty reflecting discussed with patient increasing olanzapine alprazolam for behavioral control 04/07/23 Cont depakote olanzpine alprazolam encourage strategies to deal with triggers d/c planning 04/08/2023 Depakote increased by 125 mg nortriptyline increased continue discharge planning CK CHEM UA CBC 04/09/23 Patient has become increasingly depressed olanzapine Depakote could not effective for dysphoria irritability case reviewed dr nelson consider ect mirtazapine 04/10 Add Ambien 5 mg at hs 04/11: Continue current treatment plan. 04/12: Continue current treatment plan. 04/13: Continue current plan of care. 04/14 cont plan of care Patient educated on: diagnosis, medication risk/benefits, therapeutic strategies and medical condition Reason for continued inpatient stay Substantial Risk for: harm to self and inability to function Time Spent With Patient Time: Total time managing care of this patient today ____ minutes.
[2023-04-14 18:00] VITALS: BP 131/64; PULSE 66; RESP 16; TEMP 36.1; O2SAT 96
[2023-04-14 19:30] VITALS: BP 140/77; PULSE 60
[2023-04-14] MEDS: Divalproex Sodium 250 MG TABLET.DR 750 MG PO (21:20)
[2023-04-14] MEDS: Nortriptyline HCl 25 MG CAPSULE 75 MG PO (21:21)
[2023-04-14] MEDS: Mirtazapine 7.5 MG TABLET PO (21:22)
[2023-04-14] MEDS: ALPRAZolam 0.25 MG TABLET PO (21:22)
[2023-04-14] MEDS: Acetaminophen 325 MG TABLET 975 MG PO (21:26)
[2023-04-14] MEDS: Zolpidem Tartrate 5 MG TABLET PO (21:27)
[2023-04-14] MEDS: Latanoprost 0.005 % Ophth Sol 2.5 ML DROPS 1 DROP EYE-BOTH (21:28)
[2023-04-15] MEDS: polyethylene glycoL 3350 17 GM POWD.PACK PO (06:41)
[2023-04-15 08:01] VITALS: BP 144/79; PULSE 72; RESP 18; TEMP 35.5; O2SAT 97
[2023-04-15] MEDS: Propranolol HCL 20 MG TABLET PO ×3 (08:19→21:36)
[2023-04-15] MEDS: OLANZapine 2.5 MG TABLET PO ×3 (08:19→21:36)
--- NOTE | 2023-04-15 09:03 | HO.PSYCHPN ---
Subjective Subjective Date of Service: 04/15/23 Reason For Visit: Depression hopelessness irritability Subjective Notes: Conditional Voluntary Medical Problems Affecting Mental Status: Yes (s/p head injury) Interim History: pt has been feeling somewhat better less dysphoric and labile Medication Compliance: Yes Attending Groups: Yes Mental Status Exam Mental Status Exam Narrative: Patient Appearance: Appropriate Patient Orientation: Person and Situation Level of Consciousness: Awake and Appropriate Patient Behavior: Guarded and Suspicious Behavior Comments: Mood Description: Withdrawn Affect Description: Constricted Patient Cognition Impaired: Yes Ability to Follow Directions: Good Speech Pattern: Clear Memory Description: Intact Diagnostics Vital Signs (24Hr): Vital Signs - 24 hr 04/14/23 14:43 04/14/23 19:30 04/14/23 18:00 Temperature 97 F Pulse Rate 61 60 66 Respiratory Rate 16 Blood Pressure 129/74 140/77 H 131/64 Pulse Oximetry 96 Oxygen Delivery Method Room Air 04/15/23 08:01 Temperature 96 F L Pulse Rate 72 Respiratory Rate 18 Blood Pressure 144/79 H Pulse Oximetry 97 Oxygen Delivery Method Room Air BMI result Body Mass Index 30.2 Labs 04/09/23 07:59 04/09/23 07:59 Imaging Radiology Impressions: ITS Impressions Chest X-Ray 10/20/22 15:45 IMPRESSION: 1. Low lung volumes with bibasilar linear disc atelectasis versus scarring. 2. No airspace consolidation or effusion. Head CT 11/08/22 12:29 IMPRESSION: No acute intracranial hemorrhage or territorial infarction. Stable chronic postoperative changes with gliosis and encephalomalacia in the right frontal and right temporal lobes. Ex vacuo dilatation of the ventricles and diffuse parenchymal volume loss. Right-sided craniotomy changes. Chest X-Ray 11/12/22 10:32 IMPRESSION: Hypoexpanded lungs with bibasilar platelike atelectasis. Brain MRI 11/12/22 13:15 IMPRESSION: 1. No demonstrated acute intracranial abnormalities. 2. Chronic encephalomalacia of the right temporal, right frontal, and left occipital lobes. Small regions of chronic encephalomalacia in the parasagittal aspects of the bilateral parietal lobes. Moderate underlying microangiopathy and generalized cerebral volume loss. Chest X-Ray 11/14/22 15:52 IMPRESSION: Low lung volumes, bibasilar subsegmental atelectasis and slight elevation of the right hemidiaphragm similar to previous exam. Modified Barium Swallow 11/21/22 15:11 IMPRESSION: Laryngeal penetration on several occasions but no laryngeal aspiration. Mild retention of solid food in the valleculae which cleared with subsequent oral administration of water or thin barium. Correlate with speech therapy results. Orbit CT 01/23/23 14:05 IMPRESSION: - No definite significant intraorbital soft tissue findings to assessment is limited on a noncontrast CT of the orbits. No retrobulbar mass lesions and no cellulitic changes appreciated. - There are large fluid levels within the left maxillary sinus and within the right frontal sinus the can be correlated for clinical signs of acute sinusitis. - A peripherally ossified structure extending from the dorsal margin of the right nasolacrimal duct into the right maxillary sinus is stable when compared to examinations dated back to 08/24/2008 favoring a benign etiology. Cervical Spine CT 02/14/23 22:15 IMPRESSION: 1. No acute intracranial abnormality. Stable postsurgical changes with right frontotemporal encephalomalacia, global volume loss, and extraocular dilatation of the right lateral ventricle. 2. No cervical spine fracture or traumatic malalignment. Head CT 02/14/23 22:15 IMPRESSION: 1. No acute intracranial abnormality. Stable postsurgical changes with right frontotemporal encephalomalacia, global volume loss, and extraocular dilatation of the right lateral ventricle. 2. No cervical spine fracture or traumatic malalignment. Hip/Pelvis X-Ray 02/14/23 22:25 IMPRESSION: Moderate degenerative changes of the right hip with loss of superolateral joint space. Similar chronic posttraumatic deformity of the right femoral neck with chronic foreshortening. Status post left total hip arthroplasty in unchanged alignment however the lack of a crosstable lateral view limits assessment for dislocation. No acute fracture or dislocation appreciated on the available views. Foot X-Ray 02/22/23 13:50 IMPRESSION: * Postsurgical changes of arthrodesis first metatarsophalangeal joint. * There is developed large osteophyte from the head of the first metatarsal protruding laterally abutting the head of the second metatarsal. This might be the source of patient's pain. * Underlying degenerative osteoarthritis. Foot X-Ray 02/23/23 14:11 IMPRESSION: Mild degenerative changes MTP, PIP and DIP joints. No visible acute fracture or dislocation seen. Medications Medications Current Medications Acetaminophen (Acetaminophen 325 Mg Tablet) 975 mg PO Q6H PRN PRN Reason: Headache/Pain Mild Scale (1-3) Last Admin: 04/14/23 21:26 Dose: 975 mg Alprazolam (Alprazolam 0.25 Mg Tablet) 0.25 mg PO BEDTIME PRN PRN Reason: Insomnia Last Admin: 04/14/23 21:22 Dose: 0.25 mg Artificial Tears (Artificial Tears 15 Ml Drops) 1 drop EYE-BOTH Q2H PRN PRN Reason: Dry Eyes Last Admin: 04/10/23 13:34 Dose: 1 drop Bisacodyl (Bisacodyl 10 Mg Supp.Rect) 10 mg ME DAILY PRN PRN Reason: Constipation Clotrimazole (Clotrimazole 1 % Cream 15 Gm Tube) 1 appl TOPICAL BID TAZ; Protocol Last Admin: 04/14/23 23:04 Dose: 1 appl Divalproex Sodium (Divalproex Sodium 250 Mg Tablet.) 750 mg PO BEDTIME TAZ Last Admin: 04/14/23 21:20 Dose: 750 mg Divalproex Sodium (Divalproex Sodium 250 Mg Tablet.) 125 mg PO DAILY@1200 TAZ Last Admin: 04/14/23 12:28 Dose: 125 mg Guaifenesin/Dextromethorphan (Guaifenesin Dm 100/10/5 Ml 5 Ml Syrup) 5 ml PO Q4H PRN PRN Reason: cough Last Admin: 03/27/23 22:10 Dose: 5 ml Hydrocortisone (Hydrocortisone 1 % Cream 28.35 Gm Tube) 1 appl TOPICAL BID PRN; Protocol PRN Reason: itchy feet Last Admin: 04/12/23 21:27 Dose: 1 appl Hydroxyzine HCl (Hydroxyzine Hcl 25 Mg Tablet) 25 mg PO Q4H PRN PRN Reason: Anxiety Last Admin: 04/14/23 01:25 Dose: 25 mg Ibuprofen (Ibuprofen 600 Mg Tablet) 600 mg PO Q6H PRN PRN Reason: Pain, Moderate(Pain Scale 4-6) Last Admin: 04/14/23 13:20 Dose: 600 mg Latanoprost (Latanoprost 0.005 % Ophth No 2.5 Ml Drops) 1 drop EYE-BOTH BEDTIME TAZ Last Admin: 04/14/23 21:28 Dose: 1 drop Lidocaine (Lidocaine 5 % Ointment 35 Gm) 1 appl TOPICAL Q6H PRN; Protocol PRN Reason: pain r foot Last Admin: 04/13/23 21:55 Dose: 1 appl Magnesium Hydroxide (Milk Of Magnesia 30 Ml Oral.Susp) 30 ml PO BID PRN PRN Reason: constipation, stomach/GI upset Last Admin: 04/06/23 21:24 Dose: 30 ml Mirtazapine (Mirtazapine 7.5 Mg Tablet) 7.5 mg PO BEDTIME TAZ Last Admin: 04/14/23 21:22 Dose: 7.5 mg Nortriptyline HCl (Nortriptyline Hcl 25 Mg Capsule) 75 mg PO BEDTIME TAZ Last Admin: 04/14/23 21:21 Dose: 75 mg Nystatin (Nystatin Powder 15 Gm Bottle) 1 appl TOPICAL BID TAZ; Protocol Last Admin: 04/14/23 21:48 Dose: 1 appl Olanzapine (Olanzapine 2.5 Mg Tablet) 2.5 mg PO Q4H PRN PRN Reason: anxiety/restlessness Last Admin: 03/30/23 00:02 Dose: 2.5 mg Olanzapine (Olanzapine 2.5 Mg Tablet) 2.5 mg PO TID TAZ Last Admin: 04/15/23 08:19 Dose: 2.5 mg Ondansetron HCl (Ondansetron Odt 4 Mg Tab.Rapdis) 4 mg TRANSLINGU Q6H PRN PRN Reason: Nausea and Vomiting Last Admin: 03/20/23 09:13 Dose: 4 mg Polyethylene Glycol (Polyethylene Glycol 3350 17 Gm Powd.Pack) 17 gm PO DAILY PRN PRN Reason: Constipation Last Admin: 04/15/23 06:41 Dose: 17 gm Propranolol HCl (Propranolol Hcl 20 Mg Tablet) 20 mg PO TID [facility]; Protocol Last Admin: 04/15/23 08:19 Dose: 20 mg Senna/Docusate Sodium (Sennosides/Docusate Sodium Tablet) 2 tab PO BEDTIME TAZ Last Admin: 04/14/23 23:06 Dose: Not Given Sodium Chloride (Sodium Chloride 0.65 % Nasal 44 Ml Sprbtl) 1 spray NOSTRIL-B Q1H PRN PRN Reason: Nasal Congestion Last Admin: 02/26/23 21:14 Dose: 1 spray Zolpidem Tartrate (Zolpidem Tartrate 5 Mg Tablet) 5 mg PO BEDTIME TAZ Last Admin: 04/14/23 21:27 Dose: 5 mg Allergies Allergies Allergy/AdvReac Type Severity Reaction Status Date / Time fentanyl [FENTANYL] Allergy Intermediate unknown Verified 04/08/22 07:00 Assessment & Plan Assessment & Plan (1) Major depressive disorder, recurrent severe without psychotic features: Status: Acute Code(s): F33.2 - Major depressive disorder, recurrent severe without psychotic features (2) Cognitive and neurobehavioral dysfunction following brain injury: Status: Acute Code(s): G31.89 - Other specified degenerative diseases of nervous system; F09 - Unspecified mental disorder due to known physiological condition; S06.9X9S - Unspecified intracranial injury with loss of consciousness of unspecified duration, sequela (3) Personality disorder in adult: Status: Acute Code(s): F60.9 - Personality disorder, unspecified Plan ALPRAZOLAM 0.25 B.I.D. 0.5 BEDTIME OLANZAPINE ALSO 3 TIMES A DAY CONTINUE DEPAKOTE START PROPRANOLOL 10 T.I.D. THE PATIENT CONFRONTED REGARDING NEGATIVE TOXIC BEHAVIOR DIFFICULTY COPING AND NEGATIVE COMPLICATIONS TO HIS LIFE IF CONTINUE VERBALLY AGGRESSIVE AND TOXIC BEHAVIOR WITH OTHERS DEVALUATION ENCOURAGE REFLECTION STRESS MANAGEMENT COPING STRATEGIES 03/07 continue same treatment 03/08 continue same treatment 03/09 continue same treatment 03/10/23 Lower alprazolam .125 mg bid hold afternoon olanzapine secondary to slurring oversedation cont propranolol 03/11/23 Pt doing better less sedated struggles to maintain pos attitude 03/13 continue tx. 03/14: stable presentation, no change in mgmt. 03/15: appears sedated. no change in mgmt today. to F/U with attending tomorrow re meds for anxiety. 03/16 continue tx. 03/17 continue tx. 03/18 continue tx. 03/19 continue tx. 03/22 continue tx. 03/23 continue tx. 03/24/2023 Continue treatment plan discharge planning 03/25/2023 Continue plan of care 03/26/2023 Continued discharge planning needs much reassurance 03/27 continue tx. 03/28: Continue treatment plan. 03/29: Continue current treatment plan 03/30 continue tx. 03/31 continue tx. 04/02 no changes in treatment 04/03/2023 Patient more reactive belligerent kicked out at another person and was reactive with staff and aggressive. Seems much more triggered by stimulation difficulty reflecting discussed with patient increasing olanzapine alprazolam for behavioral control 04/07/23 Cont depakote olanzpine alprazolam encourage strategies to deal with triggers d/c planning 04/08/2023 Depakote increased by 125 mg nortriptyline increased continue discharge planning CK CHEM UA CBC 04/09/23 Patient has become increasingly depressed olanzapine Depakote could not effective for dysphoria irritability case reviewed dr nelson consider ect mirtazapine 04/10 Add Ambien 5 mg at hs 04/11: Continue current treatment plan. 04/12: Continue current treatment plan. 04/13: Continue current plan of care. 04/14 cont plan of care 04/15/23 Start trintellix 5mg daily Reason for continued inpatient stay Substantial Risk for: harm to self, inability to function and med/psych decompensation Time Spent With Patient Time: Total time managing care of this patient today ____ minutes.
[2023-04-15] MEDS: Divalproex Sodium 250 MG TABLET.DR 125 MG PO (11:33)
[2023-04-15] MEDS: Clotrimazole 1 % Cream 15 GM TUBE 1 APPL TOPICAL ×2 (11:36→21:42)
[2023-04-15 14:40] VITALS: BP 111/65; PULSE 69
[2023-04-15] MEDS: ALPRAZolam 0.25 MG TABLET PO ×2 (14:41→21:35)
[2023-04-15 16:02] LABS: Nortriptyline 48 mcg/L (50-150)
[2023-04-15 19:00] VITALS: BP 111/66; PULSE 69; RESP 20; TEMP 35.7; O2SAT 95
[2023-04-15] MEDS: Nortriptyline HCl 25 MG CAPSULE 75 MG PO (21:35)
[2023-04-15] MEDS: Mirtazapine 7.5 MG TABLET PO (21:36)
[2023-04-15] MEDS: Ibuprofen 600 MG TABLET PO (21:36)
[2023-04-15] MEDS: Zolpidem Tartrate 5 MG TABLET PO (21:36)
[2023-04-15] MEDS: Sennosides/Docusate Sodium TABLET 2 TAB PO (21:36)
[2023-04-15] MEDS: Divalproex Sodium 250 MG TABLET.DR 750 MG PO (21:36)
[2023-04-15] MEDS: Latanoprost 0.005 % Ophth Sol 2.5 ML DROPS 1 DROP EYE-BOTH (21:41)
[2023-04-15] MEDS: Nystatin Powder 15 GM BOTTLE 1 APPL TOPICAL (21:46)
--- NOTE | 2023-04-15 22:47 | P.PNPSI_ITS ---
Subjective Subjective Date of Service: 04/15/23 Reason For Visit: Depression hopelessness irritability Subjective Notes: Conditional Voluntary Interim History: Patient feeling somewhat better after severe despondency appears more related to biological cycling Discussed trying low-dose Trintellix to help with anxiety and dysphoria Medication Compliance: Yes Mental Status Exam Mental Status Exam Narrative: Patient Appearance: Appropriate Patient Orientation: Person and Situation Level of Consciousness: Awake and Appropriate Patient Behavior: Guarded and Suspicious Behavior Comments: Mood Description: Withdrawn, Constricted and Blunted Affect Description: Constricted Patient Cognition Impaired: Yes Ability to Follow Directions: Good Speech Pattern: Clear Memory Description: Intact Diagnostics Vital Signs (24Hr): Vital Signs - 24 hr 04/15/23 08:01 04/15/23 14:40 04/15/23 19:00 Temperature 96 F L 96.3 F L Pulse Rate 72 69 69 Respiratory Rate 18 20 Blood Pressure 144/79 H 111/65 111/66 Pulse Oximetry 97 95 Oxygen Delivery Method Room Air Room Air BMI result Body Mass Index 30.2 Labs 04/09/23 07:59 04/09/23 07:59 Labs: Laboratory Results - last 48 hr 04/07/23 18:24 Nortriptyline 48 L Imaging Radiology Impressions: ITS Impressions Chest X-Ray 10/20/22 15:45 IMPRESSION: 1. Low lung volumes with bibasilar linear disc atelectasis versus scarring. 2. No airspace consolidation or effusion. Head CT 11/08/22 12:29 IMPRESSION: No acute intracranial hemorrhage or territorial infarction. Stable chronic postoperative changes with gliosis and encephalomalacia in the right frontal and right temporal lobes. Ex vacuo dilatation of the ventricles and diffuse parenchymal volume loss. Right-sided craniotomy changes. Chest X-Ray 11/12/22 10:32 IMPRESSION: Hypoexpanded lungs with bibasilar platelike atelectasis. Brain MRI 11/12/22 13:15 IMPRESSION: 1. No demonstrated acute intracranial abnormalities. 2. Chronic encephalomalacia of the right temporal, right frontal, and left occipital lobes. Small regions of chronic encephalomalacia in the parasagittal aspects of the bilateral parietal lobes. Moderate underlying microangiopathy and generalized cerebral volume loss. Chest X-Ray 11/14/22 15:52 IMPRESSION: Low lung volumes, bibasilar subsegmental atelectasis and slight elevation of the right hemidiaphragm similar to previous exam. Modified Barium Swallow 11/21/22 15:11 IMPRESSION: Laryngeal penetration on several occasions but no laryngeal aspiration. Mild retention of solid food in the valleculae which cleared with subsequent oral administration of water or thin barium. Correlate with speech therapy results. Orbit CT 01/23/23 14:05 IMPRESSION: - No definite significant intraorbital soft tissue findings to assessment is limited on a noncontrast CT of the orbits. No retrobulbar mass lesions and no cellulitic changes appreciated. - There are large fluid levels within the left maxillary sinus and within the right frontal sinus the can be correlated for clinical signs of acute sinusitis. - A peripherally ossified structure extending from the dorsal margin of the right nasolacrimal duct into the right maxillary sinus is stable when compared to examinations dated back to 08/24/2008 favoring a benign etiology. Cervical Spine CT 02/14/23 22:15 IMPRESSION: 1. No acute intracranial abnormality. Stable postsurgical changes with right frontotemporal encephalomalacia, global volume loss, and extraocular dilatation of the right lateral ventricle. 2. No cervical spine fracture or traumatic malalignment. Head CT 02/14/23 22:15 IMPRESSION: 1. No acute intracranial abnormality. Stable postsurgical changes with right frontotemporal encephalomalacia, global volume loss, and extraocular dilatation of the right lateral ventricle. 2. No cervical spine fracture or traumatic malalignment. Hip/Pelvis X-Ray 02/14/23 22:25 IMPRESSION: Moderate degenerative changes of the right hip with loss of superolateral joint space. Similar chronic posttraumatic deformity of the right femoral neck with chronic foreshortening. Status post left total hip arthroplasty in unchanged alignment however the lack of a crosstable lateral view limits assessment for dislocation. No acute fracture or dislocation appreciated on the available views. Foot X-Ray 02/22/23 13:50 IMPRESSION: * Postsurgical changes of arthrodesis first metatarsophalangeal joint. * There is developed large osteophyte from the head of the first metatarsal protruding laterally abutting the head of the second metatarsal. This might be the source of patient's pain. * Underlying degenerative osteoarthritis. Foot X-Ray 02/23/23 14:11 IMPRESSION: Mild degenerative changes MTP, PIP and DIP joints. No visible acute fracture or dislocation seen. Medications Medications Current Medications Acetaminophen (Acetaminophen 325 Mg Tablet) 975 mg PO Q6H PRN PRN Reason: Headache/Pain Mild Scale (1-3) Last Admin: 04/14/23 21:26 Dose: 975 mg Alprazolam (Alprazolam 0.25 Mg Tablet) 0.25 mg PO BEDTIME PRN PRN Reason: Insomnia Last Admin: 04/14/23 21:22 Dose: 0.25 mg Alprazolam (Alprazolam 0.25 Mg Tablet) 0.25 mg PO TID TAZ Last Admin: 04/15/23 21:35 Dose: 0.25 mg Artificial Tears (Artificial Tears 15 Ml Drops) 1 drop EYE-BOTH Q2H PRN PRN Reason: Dry Eyes Last Admin: 04/10/23 13:34 Dose: 1 drop Bisacodyl (Bisacodyl 10 Mg Supp.Rect) 10 mg MT DAILY PRN PRN Reason: Constipation Clotrimazole (Clotrimazole 1 % Cream 15 Gm Tube) 1 appl TOPICAL BID TAZ; Protocol Last Admin: 04/15/23 21:42 Dose: 1 appl Divalproex Sodium (Divalproex Sodium 250 Mg Tablet.) 750 mg PO BEDTIME TAZ Last Admin: 04/15/23 21:36 Dose: 750 mg Divalproex Sodium (Divalproex Sodium 250 Mg Tablet.) 125 mg PO DAILY@1200 TAZ Last Admin: 04/15/23 11:33 Dose: 125 mg Guaifenesin/Dextromethorphan (Guaifenesin Dm 100/10/5 Ml 5 Ml Syrup) 5 ml PO Q4H PRN PRN Reason: cough Last Admin: 03/27/23 22:10 Dose: 5 ml Hydrocortisone (Hydrocortisone 1 % Cream 28.35 Gm Tube) 1 appl TOPICAL BID PRN; Protocol PRN Reason: itchy feet Last Admin: 04/12/23 21:27 Dose: 1 appl Hydroxyzine HCl (Hydroxyzine Hcl 25 Mg Tablet) 25 mg PO Q4H PRN PRN Reason: Anxiety Last Admin: 04/14/23 01:25 Dose: 25 mg Ibuprofen (Ibuprofen 600 Mg Tablet) 600 mg PO Q6H PRN PRN Reason: Pain, Moderate(Pain Scale 4-6) Last Admin: 04/15/23 21:36 Dose: 600 mg Latanoprost (Latanoprost 0.005 % Ophth No 2.5 Ml Drops) 1 drop EYE-BOTH BEDTIME TAZ Last Admin: 04/15/23 21:41 Dose: 1 drop Lidocaine (Lidocaine 5 % Ointment 35 Gm) 1 appl TOPICAL Q6H PRN; Protocol PRN Reason: pain r foot Last Admin: 04/13/23 21:55 Dose: 1 appl Magnesium Hydroxide (Milk Of Magnesia 30 Ml Oral.Susp) 30 ml PO BID PRN PRN Reason: constipation, stomach/GI upset Last Admin: 04/06/23 21:24 Dose: 30 ml Mirtazapine (Mirtazapine 7.5 Mg Tablet) 7.5 mg PO BEDTIME TAZ Last Admin: 04/15/23 21:36 Dose: 7.5 mg Nortriptyline HCl (Nortriptyline Hcl 25 Mg Capsule) 75 mg PO BEDTIME TAZ Last Admin: 04/15/23 21:35 Dose: 75 mg Nystatin (Nystatin Powder 15 Gm Bottle) 1 appl TOPICAL BID TAZ; Protocol Last Admin: 04/15/23 21:46 Dose: 1 appl Olanzapine (Olanzapine 2.5 Mg Tablet) 2.5 mg PO Q4H PRN PRN Reason: anxiety/restlessness Last Admin: 03/30/23 00:02 Dose: 2.5 mg Olanzapine (Olanzapine 2.5 Mg Tablet) 2.5 mg PO TID TAZ Last Admin: 04/15/23 21:36 Dose: 2.5 mg Ondansetron HCl (Ondansetron Odt 4 Mg Tab.Rapdis) 4 mg TRANSLINGU Q6H PRN PRN Reason: Nausea and Vomiting Last Admin: 03/20/23 09:13 Dose: 4 mg Polyethylene Glycol (Polyethylene Glycol 3350 17 Gm Powd.Pack) 17 gm PO DAILY PRN PRN Reason: Constipation Last Admin: 04/15/23 06:41 Dose: 17 gm Propranolol HCl (Propranolol Hcl 20 Mg Tablet) 20 mg PO TID TAZ; Protocol Last Admin: 04/15/23 21:36 Dose: 20 mg Senna/Docusate Sodium (Sennosides/Docusate Sodium Tablet) 2 tab PO BEDTIME ATZ Last Admin: 04/15/23 21:36 Dose: 1 tab Sodium Chloride (Sodium Chloride 0.65 % Nasal 44 Ml Sprbtl) 1 spray NOSTRIL-B Q1H PRN PRN Reason: Nasal Congestion Last Admin: 02/26/23 21:14 Dose: 1 spray Vortioxetine (Vortioxetine Hydrobromide 5 Mg Tablet) 5 mg PO DAILY TAZ Zolpidem Tartrate (Zolpidem Tartrate 5 Mg Tablet) 5 mg PO BEDTIME TAZ Last Admin: 04/15/23 21:36 Dose: 5 mg Allergies Allergies Allergy/AdvReac Type Severity Reaction Status Date / Time fentanyl [FENTANYL] Allergy Intermediate unknown Verified 04/08/22 07:00 Assessment & Plan Assessment & Plan (1) Major depressive disorder, recurrent severe without psychotic features: Status: Acute Code(s): F33.2 - Major depressive disorder, recurrent severe without psychotic features (2) Cognitive and neurobehavioral dysfunction following brain injury: Status: Acute Code(s): G31.89 - Other specified degenerative diseases of nervous system; F09 - Uns pecified mental disorder due to known physiological condition; S06.9X9S - Unspecified intracranial injury with loss of consciousness of unspecified duration, sequela (3) Personality disorder in adult: Status: Acute Code(s): F60.9 - Personality disorder, unspecified Plan ALPRAZOLAM 0.25 B.I.D. 0.5 BEDTIME OLANZAPINE ALSO 3 TIMES A DAY CONTINUE DEPAKOTE START PROPRANOLOL 10 T.I.D. THE PATIENT CONFRONTED REGARDING NEGATIVE TOXIC BEHAVIOR DIFFICULTY COPING AND NEGATIVE COMPLICATIONS TO HIS LIFE IF CONTINUE VERBALLY AGGRESSIVE AND TOXIC BEHAVIOR WITH OTHERS DEVALUATION ENCOURAGE REFLECTION STRESS MANAGEMENT COPING STRATEGIES 03/07 continue same treatment 03/08 continue same treatment 03/09 continue same treatment 03/10/23 Lower alprazolam .125 mg bid hold afternoon olanzapine secondary to slurring oversedation cont propranolol 03/11/23 Pt doing better less sedated struggles to maintain pos attitude 03/13 continue tx. 03/14: stable presentation, no change in mgmt. 03/15: appears sedated. no change in mgmt today. to F/U with attending tomorrow re meds for anxiety. 03/16 continue tx. 03/17 continue tx. 03/18 continue tx. 03/19 continue tx. 03/22 continue tx. 03/23 continue tx. 03/24/2023 Continue treatment plan discharge planning 03/25/2023 Continue plan of care 03/26/2023 Continued discharge planning needs much reassurance 03/27 continue tx. 03/28: Continue treatment plan. 03/29: Continue current treatment plan 03/30 continue tx. 03/31 continue tx. 04/02 no changes in treatment 04/03/2023 Patient more reactive belligerent kicked out at another person and was reactive with staff and aggressive. Seems much more triggered by stimulation difficulty reflecting discussed with patient increasing olanzapine alprazolam for behavioral control 04/07/23 Cont depakote olanzpine alprazolam encourage strategies to deal with triggers d/c planning 04/08/2023 Depakote increased by 125 mg nortriptyline increased continue discharge planning CK CHEM UA CBC 04/09/23 Patient has become increasingly depressed olanzapine Depakote could not effective for dysphoria irritability case reviewed dr nelson consider ect mirtazapine 04/10 Add Ambien 5 mg at hs 04/11: Continue current treatment plan. 04/12: Continue current treatment plan. 04/13: Continue current plan of care. 04/14 cont plan of care 04/15/23 Start trintellix 5mg daily Reason for continued inpatient stay Substantial Risk for: inability to function and rapid decompensation Time Spent With Patient Time: Total time managing care of this patient today ____ minutes.
[2023-04-16 06:00] VITALS: BP 133/85; PULSE 75; RESP 18; TEMP 36.1; O2SAT 96
[2023-04-16] MEDS: OLANZapine 2.5 MG TABLET PO ×3 (10:32→21:19)
[2023-04-16] MEDS: Propranolol HCL 20 MG TABLET PO ×3 (10:32→21:19)
[2023-04-16] MEDS: ALPRAZolam 0.25 MG TABLET PO ×3 (10:32→21:19)
[2023-04-16] MEDS: Lidocaine 5 % Ointment 35 GM 1 APPL TOPICAL ×2 (10:36→21:39)
[2023-04-16] MEDS: Divalproex Sodium 250 MG TABLET.DR 125 MG PO (11:58)
[2023-04-16] MEDS: Vortioxetine Hydrobromide 5 MG TABLET PO (14:05)
[2023-04-16] MEDS: Artificial Tears 15 ML DROPS 1 DROP EYE-BOTH (14:59)
--- NOTE | 2023-04-16 18:24 | P.PNPSI_ITS ---
Subjective Subjective Date of Service: 04/17/23 Reason For Visit: Depression hopelessness irritability Subjective Notes: Conditional Voluntary Healthcare Proxy: No Guardianship: No Medication Compliance: Yes Review of Systems Acute medical concerns: No Mental Status Exam Mental Status Exam Patient Appearance: Well Grooomed and Appropriate Patient Orientation: Person and Situation Level of Consciousness: Awake and Appropriate Patient Behavior: Guarded and Passive Mood Description: Withdrawn Affect Description: Constricted Patient Cognition Impaired: Yes Ability to Follow Directions: Good Speech Pattern: Clear Hallucinations: None Delusions: Not Present Thought Process: Distracted and Linear Thought Content: positive for [place] and positive for Circumstantial Judgement: Fair Diagnostics Vital Signs (24Hr): Vital Signs - 24 hr 04/15/23 19:00 04/16/23 06:00 Temperature 96.3 F L 96.9 F Pulse Rate 69 75 Respiratory Rate 20 18 Blood Pressure 111/66 133/85 Pulse Oximetry 95 96 Oxygen Delivery Method Room Air Room Air BMI result Body Mass Index 30.2 Labs 04/09/23 07:59 04/09/23 07:59 Labs: Laboratory Results - last 48 hr 04/07/23 18:24 Nortriptyline 48 L Imaging Radiology Impressions: ITS Impressions Chest X-Ray 10/20/22 15:45 IMPRESSION: 1. Low lung volumes with bibasilar linear disc atelectasis versus scarring. 2. No airspace consolidation or effusion. Head CT 11/08/22 12:29 IMPRESSION: No acute intracranial hemorrhage or territorial infarction. Stable chronic postoperative changes with gliosis and encephalomalacia in the right frontal and right temporal lobes. Ex vacuo dilatation of the ventricles and diffuse parenchymal volume loss. Right-sided craniotomy changes. Chest X-Ray 11/12/22 10:32 IMPRESSION: Hypoexpanded lungs with bibasilar platelike atelectasis. Brain MRI 11/12/22 13:15 IMPRESSION: 1. No demonstrated acute intracranial abnormalities. 2. Chronic encephalomalacia of the right temporal, right frontal, and left occipital lobes. Small regions of chronic encephalomalacia in the parasagittal aspects of the bilateral parietal lobes. Moderate underlying microangiopathy and generalized cerebral volume loss. Chest X-Ray 11/14/22 15:52 IMPRESSION: Low lung volumes, bibasilar subsegmental atelectasis and slight elevation of the right hemidiaphragm similar to previous exam. Modified Barium Swallow 11/21/22 15:11 IMPRESSION: Laryngeal penetration on several occasions but no laryngeal aspiration. Mild retention of solid food in the valleculae which cleared with subsequent oral administration of water or thin barium. Correlate with speech therapy results. Orbit CT 01/23/23 14:05 IMPRESSION: - No definite significant intraorbital soft tissue findings to assessment is limited on a noncontrast CT of the orbits. No retrobulbar mass lesions and no cellulitic changes appreciated. - There are large fluid levels within the left maxillary sinus and within the right frontal sinus the can be correlated for clinical signs of acute sinusitis. - A peripherally ossified structure extending from the dorsal margin of the right nasolacrimal duct into the right maxillary sinus is stable when compared to examinations dated back to 08/24/2008 favoring a benign etiology. Cervical Spine CT 02/14/23 22:15 IMPRESSION: 1. No acute intracranial abnormality. Stable postsurgical changes with right frontotemporal encephalomalacia, global volume loss, and extraocular dilatation of the right lateral ventricle. 2. No cervical spine fracture or traumatic malalignment. Head CT 02/14/23 22:15 IMPRESSION: 1. No acute intracranial abnormality. Stable postsurgical changes with right frontotemporal encephalomalacia, global volume loss, and extraocular dilatation of the right lateral ventricle. 2. No cervical spine fracture or traumatic malalignment. Hip/Pelvis X-Ray 02/14/23 22:25 IMPRESSION: Moderate degenerative changes of the right hip with loss of superolateral joint space. Similar chronic posttraumatic deformity of the right femoral neck with chronic foreshortening. Status post left total hip arthroplasty in unchanged alignment however the lack of a crosstable lateral view limits assessment for dislocation. No acute fracture or dislocation appreciated on the available views. Foot X-Ray 02/22/23 13:50 IMPRESSION: * Postsurgical changes of arthrodesis first metatarsophalangeal joint. * There is developed large osteophyte from the head of the first metatarsal protruding laterally abutting the head of the second metatarsal. This might be the source of patient's pain. * Underlying degenerative osteoarthritis. Foot X-Ray 02/23/23 14:11 IMPRESSION: Mild degenerative changes MTP, PIP and DIP joints. No visible acute fracture or dislocation seen. Medications Medications Current Medications Acetaminophen (Acetaminophen 325 Mg Tablet) 975 mg PO Q6H PRN PRN Reason: Headache/Pain Mild Scale (1-3) Last Admin: 04/14/23 21:26 Dose: 975 mg Alprazolam (Alprazolam 0.25 Mg Tablet) 0.25 mg PO BEDTIME PRN PRN Reason: Insomnia Last Admin: 04/14/23 21:22 Dose: 0.25 mg Alprazolam (Alprazolam 0.25 Mg Tablet) 0.25 mg PO TID TAZ Last Admin: 04/16/23 14:58 Dose: 0.25 mg Artificial Tears (Artificial Tears 15 Ml Drops) 1 drop EYE-BOTH Q2H PRN PRN Reason: Dry Eyes Last Admin: 04/16/23 14:59 Dose: 1 drop Bisacodyl (Bisacodyl 10 Mg Supp.Rect) 10 mg SC DAILY PRN PRN Reason: Constipation Clotrimazole (Clotrimazole 1 % Cream 15 Gm Tube) 1 appl TOPICAL BID TAZ; Protocol Last Admin: 04/16/23 10:41 Dose: Not Given Divalproex Sodium (Divalproex Sodium 250 Mg Tablet.Dr) 750 mg PO BEDTIME TAZ Last Admin: 04/15/23 21:36 Dose: 750 mg Divalproex Sodium (Divalproex Sodium 250 Mg Tablet.Dr) 125 mg PO DAILY@1200 TAZ Last Admin: 04/16/23 11:58 Dose: 125 mg Guaifenesin/Dextromethorphan (Guaifenesin Dm 100/10/5 Ml 5 Ml Syrup) 5 ml PO Q4H PRN PRN Reason: cough Last Admin: 03/27/23 22:10 Dose: 5 ml Hydrocortisone (Hydrocortisone 1 % Cream 28.35 Gm Tube) 1 appl TOPICAL BID PRN; Protocol PRN Reason: itchy feet Last Admin: 04/12/23 21:27 Dose: 1 appl Hydroxyzine HCl (Hydroxyzine Hcl 25 Mg Tablet) 25 mg PO Q4H PRN PRN Reason: Anxiety Last Admin: 04/14/23 01:25 Dose: 25 mg Ibuprofen (Ibuprofen 600 Mg Tablet) 600 mg PO Q6H PRN PRN Reason: Pain, Moderate(Pain Scale 4-6) Last Admin: 04/15/23 21:36 Dose: 600 mg Latanoprost (Latanoprost 0.005 % Ophth No 2.5 Ml Drops) 1 drop EYE-BOTH BEDTIME TAZ Last Admin: 04/15/23 21:41 Dose: 1 drop Lidocaine (Lidocaine 5 % Ointment 35 Gm) 1 appl TOPICAL Q6H PRN; Protocol PRN Reason: pain r foot Last Admin: 04/16/23 10:36 Dose: 1 appl Magnesium Hydroxide (Milk Of Magnesia 30 Ml Oral.Susp) 30 ml PO BID PRN PRN Reason: constipation, stomach/GI upset Last Admin: 04/06/23 21:24 Dose: 30 ml Mirtazapine (Mirtazapine 7.5 Mg Tablet) 7.5 mg PO BEDTIME TAZ Last Admin: 04/15/23 21:36 Dose: 7.5 mg Nortriptyline HCl (Nortriptyline Hcl 25 Mg Capsule) 75 mg PO BEDTIME TAZ Last Admin: 04/15/23 21:35 Dose: 75 mg Nystatin (Nystatin Powder 15 Gm Bottle) 1 appl TOPICAL BID TAZ; Protocol Last Admin: 04/16/23 10:41 Dose: Not Given Olanzapine (Olanzapine 2.5 Mg Tablet) 2.5 mg PO Q4H PRN PRN Reason: anxiety/restlessness Last Admin: 03/30/23 00:02 Dose: 2.5 mg Olanzapine (Olanzapine 2.5 Mg Tablet) 2.5 mg PO TID TAZ Last Admin: 04/16/23 14:58 Dose: 2.5 mg Ondansetron HCl (Ondansetron Odt 4 Mg Tab.Rapdis) 4 mg TRANSLINGU Q6H PRN PRN Reason: Nausea and Vomiting Last Admin: 03/20/23 09:13 Dose: 4 mg Polyethylene Glycol (Polyethylene Glycol 3350 17 Gm Powd.Pack) 17 gm PO DAILY PRN PRN Reason: Constipation Last Admin: 04/15/23 06:41 Dose: 17 gm Propranolol HCl (Propranolol Hcl 20 Mg Tablet) 20 mg PO TID TAZ; Protocol Last Admin: 04/16/23 14:58 Dose: 20 mg Senna/Docusate Sodium (Sennosides/Docusate Sodium Tablet) 2 tab PO BEDTIME TAZ Last Admin: 04/15/23 21:36 Dose: 1 tab Sodium Chloride (Sodium Chloride 0.65 % Nasal 44 Ml Sprbtl) 1 spray NOSTRIL-B Q1H PRN PRN Reason: Nasal Congestion Last Admin: 02/26/23 21:14 Dose: 1 spray Vortioxetine (Vortioxetine Hydrobromide 5 Mg Tablet) 5 mg PO DAILY [facility] Last Admin: 04/16/23 14:05 Dose: 5 mg Zolpidem Tartrate (Zolpidem Tartrate 5 Mg Tablet) 5 mg PO BEDTIME [facility] Last Admin: 04/15/23 21:36 Dose: 5 mg Allergies Allergies Allergy/AdvReac Type Severity Reaction Status Date / Time fentanyl [FENTANYL] Allergy Intermediate unknown Verified 04/08/22 07:00 Assessment & Plan Assessment & Plan (1) Major depressive disorder, recurrent severe without psychotic features: Status: Acute Code(s): F33.2 - Major depressive disorder, recurrent severe without psychotic features (2) Cognitive and neurobehavioral dysfunction following brain injury: Status: Acute Code(s): G31.89 - Other specified degenerative diseases of nervous system; F09 - Unspecified mental disorder due to known physiological condition; S06.9X9S - Unspecified intracranial injury with loss of consciousness of unspecified duration, sequela (3) Personality disorder in adult: Status: Acute Code(s): F60.9 - Personality disorder, unspecified Plan ALPRAZOLAM 0.25 B.I.D. 0.5 BEDTIME OLANZAPINE ALSO 3 TIMES A DAY CONTINUE DEPAKOTE START PROPRANOLOL 10 T.I.D. THE PATIENT CONFRONTED REGARDING NEGATIVE TOXIC BEHAVIOR DIFFICULTY COPING AND NEGATIVE COMPLICATIONS TO HIS LIFE IF CONTINUE VERBALLY AGGRESSIVE AND TOXIC BEHAVIOR WITH OTHERS DEVALUATION ENCOURAGE REFLECTION STRESS MANAGEMENT COPING STRATEGIES 03/07 continue same treatment 03/08 continue same treatment 03/09 continue same treatment 03/10/23 Lower alprazolam .125 mg bid hold afternoon olanzapine secondary to slurring oversedation cont propranolol 03/11/23 Pt doing better less sedated struggles to maintain pos attitude 03/13 continue tx. 03/14: stable presentation, no change in mgmt. 03/15: appears sedated. no change in mgmt today. to F/U with attending tomorrow re meds for anxiety. 03/16 continue tx. 03/17 continue tx. 03/18 continue tx. 03/19 continue tx. 03/22 continue tx. 03/23 continue tx. 03/24/2023 Continue treatment plan discharge planning 03/25/2023 Continue plan of care 03/26/2023 Continued discharge planning needs much reassurance 03/27 continue tx. 03/28: Continue treatment plan. 03/29: Continue current treatment plan 03/30 continue tx. 03/31 continue tx. 04/02 no changes in treatment 04/03/2023 Patient more reactive belligerent kicked out at another person and was reactive with staff and aggressive. Seems much more triggered by stimulation difficulty reflecting discussed with patient increasing olanzapine alprazolam for b ehavioral control 04/07/23 Cont depakote olanzpine alprazolam encourage strategies to deal with triggers d/c planning 04/08/2023 Depakote increased by 125 mg nortriptyline increased continue discharge planning CK CHEM UA CBC 04/09/23 Patient has become increasingly depressed olanzapine Depakote could not effective for dysphoria irritability case reviewed dr nelson consider ect mirtazapine 04/10 Add Ambien 5 mg at hs 04/11: Continue current treatment plan. 04/12: Continue current treatment plan. 04/13: Continue current plan of care. 04/14 cont plan of care 04/15/23 Start trintellix 5mg daily 04/17/23 Continue treatment plan patient was seen 04/16 and 04/17 Mood generally improved less labile future oriented feels better able to try keep his future focus not current triggers in the inpatient setting nortriptyline has been increased 75 mg Trintellix 5 mg Reason for continued inpatient stay Substantial Risk for: inability to function and rapid decompensation Time Spent With Patient Time: Total time managing care of this patient today ____ minutes.
[2023-04-16 19:56] VITALS: BP 127/62; PULSE 64; RESP 18; TEMP 36.3; O2SAT 98
[2023-04-16] MEDS: Mirtazapine 7.5 MG TABLET PO (21:18)
[2023-04-16] MEDS: Sennosides/Docusate Sodium TABLET 2 TAB PO (21:18)
[2023-04-16] MEDS: Divalproex Sodium 250 MG TABLET.DR 750 MG PO (21:18)
[2023-04-16] MEDS: Nortriptyline HCl 25 MG CAPSULE 75 MG PO (21:18)
[2023-04-16] MEDS: Zolpidem Tartrate 5 MG TABLET PO (21:19)
[2023-04-16] MEDS: Nystatin Powder 15 GM BOTTLE 1 APPL TOPICAL (21:39)
[2023-04-16] MEDS: Acetaminophen 325 MG TABLET 975 MG PO (21:39)
[2023-04-16] MEDS: Clotrimazole 1 % Cream 15 GM TUBE 1 APPL TOPICAL (21:39)
[2023-04-16] MEDS: Latanoprost 0.005 % Ophth Sol 2.5 ML DROPS 1 DROP EYE-BOTH (21:43)
[2023-04-17] MEDS: Ibuprofen 600 MG TABLET PO (04:29)
[2023-04-17 07:45] VITALS: BP 143/89; PULSE 75; RESP 18; TEMP 36.8; O2SAT 98
[2023-04-17] MEDS: Vortioxetine Hydrobromide 5 MG TABLET PO (08:54)
[2023-04-17] MEDS: Propranolol HCL 20 MG TABLET PO ×3 (08:54→21:00)
[2023-04-17] MEDS: OLANZapine 2.5 MG TABLET PO ×3 (08:54→21:00)
[2023-04-17] MEDS: ALPRAZolam 0.25 MG TABLET PO ×3 (08:54→21:00)
[2023-04-17] MEDS: polyethylene glycoL 3350 17 GM POWD.PACK PO (09:08)
[2023-04-17] MEDS: Clotrimazole 1 % Cream 15 GM TUBE 1 APPL TOPICAL ×2 (09:10→21:10)
[2023-04-17] MEDS: Nystatin Powder 15 GM BOTTLE 1 APPL TOPICAL ×2 (09:10→21:08)
[2023-04-17] MEDS: Divalproex Sodium 250 MG TABLET.DR 125 MG PO (11:44)
[2023-04-17 14:31] VITALS: BP 119/64; PULSE 83; TEMP 36.6; O2SAT 94
--- NOTE | 2023-04-17 16:40 | PC.NURSE ---
TC from speech and hearing. pt's hearing aid is ready-received and given to pt
[2023-04-17 18:00] VITALS: BP 129/82; PULSE 70; RESP 18; TEMP 36.1; O2SAT 97
[2023-04-17] MEDS: Zolpidem Tartrate 5 MG TABLET PO (21:00)
[2023-04-17] MEDS: Mirtazapine 7.5 MG TABLET PO (21:00)
[2023-04-17] MEDS: Sennosides/Docusate Sodium TABLET 2 TAB PO (21:00)
[2023-04-17] MEDS: Divalproex Sodium 250 MG TABLET.DR 750 MG PO (21:01)
[2023-04-17] MEDS: Nortriptyline HCl 25 MG CAPSULE 75 MG PO (21:01)
[2023-04-17] MEDS: Latanoprost 0.005 % Ophth Sol 2.5 ML DROPS 1 DROP EYE-BOTH (21:01)
[2023-04-17] MEDS: Lidocaine 5 % Ointment 35 GM 1 APPL TOPICAL (21:09)
[2023-04-18] MEDS: hydrOXYzine HCL 25 MG TABLET PO ×2 (03:26→13:46)
[2023-04-18] MEDS: Ibuprofen 600 MG TABLET PO ×2 (03:27→13:41)
[2023-04-18] MEDS: Nystatin Powder 15 GM BOTTLE 1 APPL TOPICAL ×2 (08:53→21:16)
[2023-04-18] MEDS: Clotrimazole 1 % Cream 15 GM TUBE 1 APPL TOPICAL (08:54)
[2023-04-18] MEDS: OLANZapine 2.5 MG TABLET PO ×3 (08:55→20:46)
[2023-04-18] MEDS: Propranolol HCL 20 MG TABLET PO ×3 (08:55→20:46)
[2023-04-18] MEDS: Vortioxetine Hydrobromide 5 MG TABLET PO (08:55)
[2023-04-18] MEDS: ALPRAZolam 0.25 MG TABLET PO ×3 (08:55→20:46)
[2023-04-18] MEDS: polyethylene glycoL 3350 17 GM POWD.PACK PO (08:56)
[2023-04-18 09:00] VITALS: BP 144/88; PULSE 79; RESP 18; TEMP 35.8; O2SAT 98
--- NOTE | 2023-04-18 10:10 | HO.PSYCHPN ---
Subjective Subjective Date of Service: 04/18/23 Reason For Visit: Depression hopelessness irritability Subjective Notes: Conditional Voluntary Interim History: The nursing staff reported the patient had been angry with a very demented peer, he had an argument with him regarding the TV. On the evening he was angry and verbalized homicidal and suicidal threats and he was redirected. On interview the patient denies new symptoms mom waiting for placement. Mental Status Exam Mental Status Exam Patient Appearance: Well Grooomed and Appropriate Patient Orientation: Person and Situation Level of Consciousness: Awake and Appropriate Patient Behavior: Guarded and Passive Mood Description: Withdrawn Affect Description: Constricted Patient Cognition Impaired: Yes Ability to Follow Directions: Good Speech Pattern: Clear Hallucinations: None Delusions: Not Present Thought Process: Distracted and Linear Thought Content: positive for [place] and positive for Circumstantial Judgement: Fair Diagnostics Vital Signs (24Hr): Vital Signs - 24 hr 04/17/23 14:31 04/17/23 18:00 04/18/23 09:00 Temperature 97.8 F 97 F 96.4 F L Pulse Rate 83 70 79 Respiratory Rate 18 18 Blood Pressure 119/64 129/82 144/88 H Pulse Oximetry 94 97 98 Oxygen Delivery Method Room Air Room Air Room Air BMI result Body Mass Index 30.2 Labs 04/09/23 07:59 04/09/23 07:59 Imaging Radiology Impressions: ITS Impressions Chest X-Ray 10/20/22 15:45 IMPRESSION: 1. Low lung volumes with bibasilar linear disc atelectasis versus scarring. 2. No airspace consolidation or effusion. Head CT 11/08/22 12:29 IMPRESSION: No acute intracranial hemorrhage or territorial infarction. Stable chronic postoperative changes with gliosis and encephalomalacia in the right frontal and right temporal lobes. Ex vacuo dilatation of the ventricles and diffuse parenchymal volume loss. Right-sided craniotomy changes. Chest X-Ray 11/12/22 10:32 IMPRESSION: Hypoexpanded lungs with bibasilar platelike atelectasis. Brain MRI 11/12/22 13:15 IMPRESSION: 1. No demonstrated acute intracranial abnormalities. 2. Chronic encephalomalacia of the right temporal, right frontal, and left occipital lobes. Small regions of chronic encephalomalacia in the parasagittal aspects of the bilateral parietal lobes. Moderate underlying microangiopathy and generalized cerebral volume loss. Chest X-Ray 11/14/22 15:52 IMPRESSION: Low lung volumes, bibasilar subsegmental atelectasis and slight elevation of the right hemidiaphragm similar to previous exam. Modified Barium Swallow 11/21/22 15:11 IMPRESSION: Laryngeal penetration on several occasions but no laryngeal aspiration. Mild retention of solid food in the valleculae which cleared with subsequent oral administration of water or thin barium. Correlate with speech therapy results. Orbit CT 01/23/23 14:05 IMPRESSION: - No definite significant intraorbital soft tissue findings to assessment is limited on a noncontrast CT of the orbits. No retrobulbar mass lesions and no cellulitic changes appreciated. - There are large fluid levels within the left maxillary sinus and within the right frontal sinus the can be correlated for clinical signs of acute sinusitis. - A peripherally ossified structure extending from the dorsal margin of the right nasolacrimal duct into the right maxillary sinus is stable when compared to examinations dated back to 08/24/2008 favoring a benign etiology. Cervical Spine CT 02/14/23 22:15 IMPRESSION: 1. No acute intracranial abnormality. Stable postsurgical changes with right frontotemporal encephalomalacia, global volume loss, and extraocular dilatation of the right lateral ventricle. 2. No cervical spine fracture or traumatic malalignment. Head CT 02/14/23 22:15 IMPRESSION: 1. No acute intracranial abnormality. Stable postsurgical changes with right frontotemporal encephalomalacia, global volume loss, and extraocular dilatation of the right lateral ventricle. 2. No cervical spine fracture or traumatic malalignment. Hip/Pelvis X-Ray 02/14/23 22:25 IMPRESSION: Moderate degenerative changes of the right hip with loss of superolateral joint space. Similar chronic posttraumatic deformity of the right femoral neck with chronic foreshortening. Status post left total hip arthroplasty in unchanged alignment however the lack of a crosstable lateral view limits assessment for dislocation. No acute fracture or dislocation appreciated on the available views. Foot X-Ray 02/22/23 13:50 IMPRESSION: * Postsurgical changes of arthrodesis first metatarsophalangeal joint. * There is developed large osteophyte from the head of the first metatarsal protruding laterally abutting the head of the second metatarsal. This might be the source of patient's pain. * Underlying degenerative osteoarthritis. Foot X-Ray 02/23/23 14:11 IMPRESSION: Mild degenerative changes MTP, PIP and DIP joints. No visible acute fracture or dislocation seen. Medications Medications Current Medications Acetaminophen (Acetaminophen 325 Mg Tablet) 975 mg PO Q6H PRN PRN Reason: Headache/Pain Mild Scale (1-3) Last Admin: 04/16/23 21:39 Dose: 975 mg Alprazolam (Alprazolam 0.25 Mg Tablet) 0.25 mg PO BEDTIME PRN PRN Reason: Insomnia Last Admin: 04/14/23 21:22 Dose: 0.25 mg Alprazolam (Alprazolam 0.25 Mg Tablet) 0.25 mg PO TID TAZ Last Admin: 04/18/23 08:55 Dose: 0.25 mg Artificial Tears (Artificial Tears 15 Ml Drops) 1 drop EYE-BOTH Q2H PRN PRN Reason: Dry Eyes Last Admin: 04/16/23 14:59 Dose: 1 drop Bisacodyl (Bisacodyl 10 Mg Supp.Rect) 10 mg GA DAILY PRN PRN Reason: Constipation Clotrimazole (Clotrimazole 1 % Cream 15 Gm Tube) 1 appl TOPICAL BID TAZ; Protocol Last Admin: 04/18/23 08:54 Dose: 1 appl Divalproex Sodium (Divalproex Sodium 250 Mg Tablet.) 750 mg PO BEDTIME TAZ Last Admin: 04/17/23 21:01 Dose: 750 mg Divalproex Sodium (Divalproex Sodium 250 Mg Tablet.) 125 mg PO DAILY@1200 TAZ Last Admin: 04/17/23 11:44 Dose: 125 mg Guaifenesin/Dextromethorphan (Guaifenesin Dm 100/10/5 Ml 5 Ml Syrup) 5 ml PO Q4H PRN PRN Reason: cough Last Admin: 03/27/23 22:10 Dose: 5 ml Hydrocortisone (Hydrocortisone 1 % Cream 28.35 Gm Tube) 1 appl TOPICAL BID PRN; Protocol PRN Reason: itchy feet Last Admin: 04/12/23 21:27 Dose: 1 appl Hydroxyzine HCl (Hydroxyzine Hcl 25 Mg Tablet) 25 mg PO Q4H PRN PRN Reason: Anxiety Last Admin: 04/18/23 03:26 Dose: 25 mg Ibuprofen (Ibuprofen 600 Mg Tablet) 600 mg PO Q6H PRN PRN Reason: Pain, Moderate(Pain Scale 4-6) Last Admin: 04/18/23 03:27 Dose: 600 mg Latanoprost (Latanoprost 0.005 % Ophth No 2.5 Ml Drops) 1 drop EYE-BOTH BEDTIME TAZ Last Admin: 04/17/23 21:01 Dose: 1 drop Lidocaine (Lidocaine 5 % Ointment 35 Gm) 1 appl TOPICAL Q6H PRN; Protocol PRN Reason: pain r foot Last Admin: 04/17/23 21:09 Dose: 1 appl Magnesium Hydroxide (Milk Of Magnesia 30 Ml Oral.Susp) 30 ml PO BID PRN PRN Reason: constipation, stomach/GI upset Last Admin: 04/06/23 21:24 Dose: 30 ml Mirtazapine (Mirtazapine 7.5 Mg Tablet) 7.5 mg PO BEDTIME TAZ Last Admin: 04/17/23 21:00 Dose: 7.5 mg Nortriptyline HCl (Nortriptyline Hcl 25 Mg Capsule) 75 mg PO BEDTIME TAZ Last Admin: 04/17/23 21:01 Dose: 75 mg Nystatin (Nystatin Powder 15 Gm Bottle) 1 appl TOPICAL BID TAZ; Protocol Last Admin: 04/18/23 08:53 Dose: 1 appl Olanzapine (Olanzapine 2.5 Mg Tablet) 2.5 mg PO Q4H PRN PRN Reason: anxiety/restlessness Last Admin: 03/30/23 00:02 Dose: 2.5 mg Olanzapine (Olanzapine 2.5 Mg Tablet) 2.5 mg PO TID TAZ Last Admin: 04/18/23 08:55 Dose: 2.5 mg Ondansetron HCl (Ondansetron Odt 4 Mg Tab.Rapdis) 4 mg TRANSLINGU Q6H PRN PRN Reason: Nausea and Vomiting Last Admin: 03/20/23 09:13 Dose: 4 mg Polyethylene Glycol (Polyethylene Glycol 3350 17 Gm Powd.Pack) 17 gm PO DAILY PRN PRN Reason: Constipation Last Admin: 04/18/23 08:56 Dose: 17 gm Propranolol HCl (Propranolol Hcl 20 Mg Tablet) 20 mg PO TID [facility]; Protocol Last Admin: 04/18/23 08:55 Dose: 20 mg Senna/Docusate Sodium (Sennosides/Docusate Sodium Tablet) 2 tab PO BEDTIME TAZ Last Admin: 04/17/23 21:00 Dose: 2 tab Sodium Chloride (Sodium Chloride 0.65 % Nasal 44 Ml Sprbtl) 1 spray NOSTRIL-B Q1H PRN PRN Reason: Nasal Congestion Last Admin: 02/26/23 21:14 Dose: 1 spray Vortioxetine (Vortioxetine Hydrobromide 5 Mg Tablet) 5 mg PO DAILY [facility] Last Admin: 04/18/23 08:55 Dose: 5 mg Zolpidem Tartrate (Zolpidem Tartrate 5 Mg Tablet) 5 mg PO BEDTIME [facility] Last Admin: 04/17/23 21:00 Dose: 5 mg Allergies Allergies Allergy/AdvReac Type Severity Reaction Status Date / Time fentanyl [FENTANYL] Allergy Intermediate unknown Verified 04/08/22 07:00 Assessment & Plan Assessment & Plan (1) Major depressive disorder, recurrent severe without psychotic features: Status: Acute Code(s): F33.2 - Major depressive disorder, recurrent severe without psychotic features (2) Cognitive and neurobehavioral dysfunction following brain injury: Status: Acute Code(s): G31.89 - Other specified degenerative diseases of nervous system; F09 - Unspecified mental disorder due to known physiological condition; S06.9X9S - Unspecified intracranial injury with loss of consciousness of unspecified duration, sequela (3) Personality disorder in adult: Status: Acute Code(s): F60.9 - Personality disorder, unspecified Plan ALPRAZOLAM 0.25 B.I.D. 0.5 BEDTIME OLANZAPINE ALSO 3 TIMES A DAY CONTINUE DEPAKOTE START PROPRANOLOL 10 T.I.D. THE PATIENT CONFRONTED REGARDING NEGATIVE TOXIC BEHAVIOR DIFFICULTY COPING AND NEGATIVE COMPLICATIONS TO HIS LIFE IF CONTINUE VERBALLY AGGRESSIVE AND TOXIC BEHAVIOR WITH OTHERS DEVALUATION ENCOURAGE REFLECTION STRESS MANAGEMENT COPING STRATEGIES 03/07 continue same treatment 03/08 continue same treatment 03/09 continue same treatment 03/10/23 Lower alprazolam .125 mg bid hold afternoon olanzapine secondary to slurring oversedation cont propranolol 03/11/23 Pt doing better less sedated struggles to maintain pos attitude 03/13 continue tx. 03/14: stable presentation, no change in mgmt. 03/15: appears sedated. no change in mgmt today. to F/U with attending tomorrow re meds for anxiety. 03/16 continue tx. 03/17 continue tx. 03/18 continue tx. 03/19 continue tx. 03/22 continue tx. 03/23 continue tx. 03/24/2023 Continue treatment plan discharge planning 03/25/2023 Continue plan of care 03/26/2023 Continued discharge planning needs much reassurance 03/27 continue tx. 03/28: Continue treatment plan. 03/29: Continue current treatment plan 03/30 continue tx. 03/31 continue tx. 04/02 no changes in treatment 04/03/2023 Patient more reactive belligerent kicked out at another person and was reactive with staff and aggressive. Seems much more triggered by stimulation difficulty reflecting discussed with patient increasing olanzapine alprazolam for behavioral control 04/07/23 Cont depakote olanzpine alprazolam encourage strategies to deal with triggers d/c planning 04/08/2023 Depakote increased by 125 mg nortriptyline increased continue discharge planning CK CHEM UA CBC 04/09/23 Patient has become increasingly depressed olanzapine Depakote could not effective for dysphoria irritability case reviewed dr nelson consider ect mirtazapine 04/10 Add Ambien 5 mg at hs 04/11: Continue current treatment plan. 04/12: Continue current treatment plan. 04/13: Continue current plan of care. 04/14 cont plan of care 04/15/23 Start trintellix 5mg daily 04/18 keep same treatment Reason for continued inpatient stay Substantial Risk for: inability to function, rapid decompensation and med/psych decompensation Time Spent With Patient Time: Total time managing care of this patient today __20__ minutes.
[2023-04-18] MEDS: Divalproex Sodium 250 MG TABLET.DR 125 MG PO (11:33)
[2023-04-18 14:00] VITALS: BP 124/60; PULSE 64
[2023-04-18 18:00] VITALS: BP 135/71; PULSE 64; RESP 18; TEMP 36.1; O2SAT 98
[2023-04-18] MEDS: Divalproex Sodium 250 MG TABLET.DR 750 MG PO (20:45)
[2023-04-18] MEDS: Nortriptyline HCl 25 MG CAPSULE 75 MG PO (20:45)
[2023-04-18] MEDS: Sennosides/Docusate Sodium TABLET 2 TAB PO (20:46)
[2023-04-18] MEDS: Mirtazapine 7.5 MG TABLET PO (20:46)
[2023-04-18] MEDS: Zolpidem Tartrate 5 MG TABLET PO (20:46)
[2023-04-18] MEDS: Lidocaine 5 % Ointment 35 GM 1 APPL TOPICAL (21:16)
[2023-04-18] MEDS: Latanoprost 0.005 % Ophth Sol 2.5 ML DROPS 1 DROP EYE-BOTH (21:16)
[2023-04-19 06:00] VITALS: BP 134/82; PULSE 70; RESP 18; TEMP 36.1; O2SAT 98
--- NOTE | 2023-04-19 07:33 | P.PNPSI_ITS ---
Subjective Subjective Date of Service: 04/19/23 Reason For Visit: Depression hopelessness irritability Subjective Notes: Conditional Voluntary Interim History: The patient looks depressed, last night he went to bed early. He has been compliant with medications and he slept well. On interview the patient reports dysphoria, I explained him that there is a few patients in the unit her very disruptive and try to increase his safety awareness. Waiting for placement. Mental Status Exam Mental Status Exam Patient Appearance: Well Grooomed and Appropriate Patient Orientation: Person and Situation Level of Consciousness: Awake and Appropriate Patient Behavior: Guarded and Passive Mood Description: Withdrawn and Depressed Affect Description: Constricted Patient Cognition Impaired: Yes Ability to Follow Directions: Good Speech Pattern: Clear Hallucinations: None Delusions: Not Present Thought Process: Linear Thought Content: positive for Circumstantial Judgement: Fair Diagnostics Vital Signs (24Hr): Vital Signs - 24 hr 04/18/23 09:00 04/18/23 14:00 04/18/23 18:00 Temperature 96.4 F L 96.9 F Pulse Rate 79 64 64 Respiratory Rate 18 18 Blood Pressure 144/88 H 124/60 135/71 Pulse Oximetry 98 98 Oxygen Delivery Method Room Air Room Air BMI result Body Mass Index 30.2 Labs 04/09/23 07:59 04/09/23 07:59 Imaging Radiology Impressions: ITS Impressions Chest X-Ray 10/20/22 15:45 IMPRESSION: 1. Low lung volumes with bibasilar linear disc atelectasis versus scarring. 2. No airspace consolidation or effusion. Head CT 11/08/22 12:29 IMPRESSION: No acute intracranial hemorrhage or territorial infarction. Stable chronic postoperative changes with gliosis and encephalomalacia in the right frontal and right temporal lobes. Ex vacuo dilatation of the ventricles and diffuse parenchymal volume loss. Right-sided craniotomy changes. Chest X-Ray 11/12/22 10:32 IMPRESSION: Hypoexpanded lungs with bibasilar platelike atelectasis. Brain MRI 11/12/22 13:15 IMPRESSION: 1. No demonstrated acute intracranial abnormalities. 2. Chronic encephalomalacia of the right temporal, right frontal, and left occipital lobes. Small regions of chronic encephalomalacia in the parasagittal aspects of the bilateral parietal lobes. Moderate underlying microangiopathy and generalized cerebral volume loss. Chest X-Ray 12/30/22 15:52 IMPRESSION: Low lung volumes, bibasilar subsegmental atelectasis and slight elevation of the right hemidiaphragm similar to previous exam. Modified Barium Swallow 11/21/22 15:11 IMPRESSION: Laryngeal penetration on several occasions but no laryngeal aspiration. Mild retention of solid food in the valleculae which cleared with subsequent oral administration of water or thin barium. Correlate with speech therapy results. Orbit CT 01/23/23 14:05 IMPRESSION: - No definite significant intraorbital soft tissue findings to assessment is limited on a noncontrast CT of the orbits. No retrobulbar mass lesions and no cellulitic changes appreciated. - There are large fluid levels within the left maxillary sinus and within the right frontal sinus the can be correlated for clinical signs of acute sinusitis. - A peripherally ossified structure extending from the dorsal margin of the right nasolacrimal duct into the right maxillary sinus is stable when compared to examinations dated back to 08/24/2008 favoring a benign etiology. Cervical Spine CT 02/14/23 22:15 IMPRESSION: 1. No acute intracranial abnormality. Stable postsurgical changes with right frontotemporal encephalomalacia, global volume loss, and extraocular dilatation of the right lateral ventricle. 2. No cervical spine fracture or traumatic malalignment. Head CT 02/14/23 22:15 IMPRESSION: 1. No acute intracranial abnormality. Stable postsurgical changes with right frontotemporal encephalomalacia, global volume loss, and extraocular dilatation of the right lateral ventricle. 2. No cervical spine fracture or traumatic malalignment. Hip/Pelvis X-Ray 02/14/23 22:25 IMPRESSION: Moderate degenerative changes of the right hip with loss of superolateral joint space. Similar chronic posttraumatic deformity of the right femoral neck with chronic foreshortening. Status post left total hip arthroplasty in unchanged alignment however the lack of a crosstable lateral view limits assessment for dislocation. No acute fracture or dislocation appreciated on the available views. Foot X-Ray 02/22/23 13:50 IMPRESSION: * Postsurgical changes of arthrodesis first metatarsophalangeal joint. * There is developed large osteophyte from the head of the first metatarsal protruding laterally abutting the head of the second metatarsal. This might be the source of patient's pain. * Underlying degenerative osteoarthritis. Foot X-Ray 02/23/23 14:11 IMPRESSION: Mild degenerative changes MTP, PIP and DIP joints. No visible acute fracture or dislocation seen. Medications Medications Current Medications Acetaminophen (Acetaminophen 325 Mg Tablet) 975 mg PO Q6H PRN PRN Reason: Headache/Pain Mild Scale (1-3) Last Admin: 04/16/23 21:39 Dose: 975 mg Alprazolam (Alprazolam 0.25 Mg Tablet) 0.25 mg PO BEDTIME PRN PRN Reason: Insomnia Last Admin: 04/14/23 21:22 Dose: 0.25 mg Alprazolam (Alprazolam 0.25 Mg Tablet) 0.25 mg PO TID TAZ Last Admin: 04/18/23 20:46 Dose: 0.25 mg Artificial Tears (Artificial Tears 15 Ml Drops) 1 drop EYE-BOTH Q2H PRN PRN Reason: Dry Eyes Last Admin: 04/16/23 14:59 Dose: 1 drop Bisacodyl (Bisacodyl 10 Mg Supp.Rect) 10 mg [place] DAILY PRN PRN Reason: Constipation Clotrimazole (Clotrimazole 1 % Cream 15 Gm Tube) 1 appl TOPICAL BID TAZ; Protocol Last Admin: 04/18/23 21:19 Dose: Not Given Divalproex Sodium (Divalproex Sodium 250 Mg Tablet.) 750 mg PO BEDTIME TAZ Last Admin: 04/18/23 20:45 Dose: 750 mg Divalproex Sodium (Divalproex Sodium 250 Mg Tablet.) 125 mg PO DAILY@1200 TAZ Last Admin: 04/18/23 11:33 Dose: 125 mg Guaifenesin/Dextromethorphan (Guaifenesin Dm 100/10/5 Ml 5 Ml Syrup) 5 ml PO Q4H PRN PRN Reason: cough Last Admin: 03/27/23 22:10 Dose: 5 ml Hydrocortisone (Hydrocortisone 1 % Cream 28.35 Gm Tube) 1 appl TOPICAL BID PRN; Protocol PRN Reason: itchy feet Last Admin: 04/12/23 21:27 Dose: 1 appl Hydroxyzine HCl (Hydroxyzine Hcl 25 Mg Tablet) 25 mg PO Q4H PRN PRN Reason: Anxiety Last Admin: 04/18/23 13:46 Dose: 25 mg Ibuprofen (Ibuprofen 600 Mg Tablet) 600 mg PO Q6H PRN PRN Reason: Pain, Moderate(Pain Scale 4-6) Last Admin: 04/18/23 13:41 Dose: 600 mg Latanoprost (Latanoprost 0.005 % Ophth No 2.5 Ml Drops) 1 drop EYE-BOTH BEDTIME TAZ Last Admin: 04/18/23 21:16 Dose: 1 drop Lidocaine (Lidocaine 5 % Ointment 35 Gm) 1 appl TOPICAL Q6H PRN; Protocol PRN Reason: pain r foot Last Admin: 04/18/23 21:16 Dose: 1 appl Magnesium Hydroxide (Milk Of Magnesia 30 Ml Oral.Susp) 30 ml PO BID PRN PRN Reason: constipation, stomach/GI upset Last Admin: 04/06/23 21:24 Dose: 30 ml Mirtazapine (Mirtazapine 7.5 Mg Tablet) 7.5 mg PO BEDTIME TAZ Last Admin: 04/18/23 20:46 Dose: 7.5 mg Nortriptyline HCl (Nortriptyline Hcl 25 Mg Capsule) 75 mg PO BEDTIME TAZ Last Admin: 04/18/23 20:45 Dose: 75 mg Nystatin (Nystatin Powder 15 Gm Bottle) 1 appl TOPICAL BID TAZ; Protocol Last Admin: 04/18/23 21:16 Dose: 1 appl Olanzapine (Olanzapine 2.5 Mg Tablet) 2.5 mg PO Q4H PRN PRN Reason: anxiety/restlessness Last Admin: 03/30/23 00:02 Dose: 2.5 mg Olanzapine (Olanzapine 2.5 Mg Tablet) 2.5 mg PO TID TAZ Last Admin: 04/18/23 20:46 Dose: 2.5 mg Ondansetron HCl (Ondansetron Odt 4 Mg Tab.Rapdis) 4 mg TRANSLINGU Q6H PRN PRN Reason: Nausea and Vomiting Last Admin: 03/20/23 09:13 Dose: 4 mg Polyethylene Glycol (Polyethylene Glycol 3350 17 Gm Powd.Pack) 17 gm PO DAILY PRN PRN Reason: Constipation Last Admin: 04/18/23 08:56 Dose: 17 gm Propranolol HCl (Propranolol Hcl 20 Mg Tablet) 20 mg PO TID TAZ; Protocol Last Admin: 04/18/23 20:46 Dose: 20 mg Senna/Docusate Sodium (Sennosides/Docusate Sodium Tablet) 2 tab PO BEDTIME TAZ Last Admin: 04/18/23 20:46 Dose: 2 tab Sodium Chloride (Sodium Chloride 0.65 % Nasal 44 Ml Sprbtl) 1 spray NOSTRIL-B Q1H PRN PRN Reason: Nasal Congestion Last Admin: 02/26/23 21:14 Dose: 1 spray Vortioxetine (Vortioxetine Hydrobromide 5 Mg Tablet) 5 mg PO DAILY [facility] Last Admin: 04/18/23 08:55 Dose: 5 mg Zolpidem Tartrate (Zolpidem Tartrate 5 Mg Tablet) 5 mg PO BEDTIME [facility] Last Admin: 04/18/23 20:46 Dose: 5 mg Allergies Allergies Allergy/AdvReac Type Severity Reaction Status Date / Time fentanyl [FENTANYL] Allergy Intermediate unknown Verified 04/08/22 07:00 Assessment & Plan Assessment & Plan (1) Major depressive disorder, recurrent severe without psychotic features: Status: Acute Code(s): F33.2 - Major depressive disorder, recurrent severe without psychotic features (2) Cognitive and neurobehavioral dysfunction following brain injury: Status: Acute Code(s): G31.89 - Other specified degenerative diseases of nervous system; F09 - Unspecified mental disorder due to known physiological condition; S06.9X9S - Unspecified intracranial injury with loss of consciousness of unspecified duration, sequela (3) Personality disorder in adult: Status: Acute Code(s): F60.9 - Personality disorder, unspecified Plan ALPRAZOLAM 0.25 B.I.D. 0.5 BEDTIME OLANZAPINE ALSO 3 TIMES A DAY CONTINUE DEPAKOTE START PROPRANOLOL 10 T.I.D. THE PATIENT CONFRONTED REGARDING NEGATIVE TOXIC BEHAVIOR DIFFICULTY COPING AND NEGATIVE COMPLICATIONS TO HIS LIFE IF CONTINUE VERBALLY AGGRESSIVE AND TOXIC BEHAVIOR WITH OTHERS DEVALUATION ENCOURAGE REFLECTION STRESS MANAGEMENT COPING STRATEGIES 03/07 continue same treatment 03/08 continue same treatment 03/09 continue same treatment 03/10/23 Lower alprazolam .125 mg bid hold afternoon olanzapine secondary to slurring oversedation cont propranolol 03/11/23 Pt doing better less sedated struggles to maintain pos attitude 03/13 continue tx. 03/14: stable presentation, no change in mgmt. 03/15: appears sedated. no change in mgmt today. to F/U with attending tomorrow re meds for anxiety. 03/16 continue tx. 03/17 continue tx. 03/18 continue tx. 03/19 continue tx. 03/22 continue tx. 03/23 continue tx. 03/24/2023 Continue treatment plan discharge planning 03/25/2023 Continue plan of care 03/26/2023 Continued discharge planning needs much reassurance 03/27 continue tx. 03/28: Continue treatment plan. 03/29: Continue current treatment plan 03/30 continue tx. 03/31 continue tx. 04/02 no changes in treatment 04/03/2023 Patient more reactive belligerent kicked out at another person and was reactive with staff and aggressive. Seems much more triggered by stimulation difficulty reflecting discussed with patient increasing olanzapine alprazolam for beh avioral control 04/07/23 Cont depakote olanzpine alprazolam encourage strategies to deal with triggers d/c planning 04/08/2023 Depakote increased by 125 mg nortriptyline increased continue discharge planning CK CHEM UA CBC 04/09/23 Patient has become increasingly depressed olanzapine Depakote could not effective for dysphoria irritability case reviewed dr nelson consider ect mirtazapine 04/10 Add Ambien 5 mg at hs 04/11: Continue current treatment plan. 04/12: Continue current treatment plan. 04/13: Continue current plan of care. 04/14 cont plan of care 04/15/23 Start trintellix 5mg daily 04/17/23 Continue treatment plan patient was seen 04/16 and 04/17 Mood generally improved less labile future oriented feels better able to try keep his future focus not current triggers in the inpatient setting nortriptyline has been increased 75 mg Trintellix 5 mg 04/19 keep same treatment Reason for continued inpatient stay Substantial Risk for: inability to function, rapid decompensation and med/psych decompensation Time Spent With Patient Time: Total time managing care of this patient today __20__ minutes.
[2023-04-19] MEDS: Nystatin Powder 15 GM BOTTLE 1 APPL TOPICAL (09:25)
[2023-04-19] MEDS: Clotrimazole 1 % Cream 15 GM TUBE 1 APPL TOPICAL (09:25)
[2023-04-19] MEDS: ALPRAZolam 0.25 MG TABLET PO ×3 (09:26→20:31)
[2023-04-19] MEDS: Propranolol HCL 20 MG TABLET PO ×3 (09:26→20:32)
[2023-04-19] MEDS: polyethylene glycoL 3350 17 GM POWD.PACK PO (09:26)
[2023-04-19] MEDS: Vortioxetine Hydrobromide 5 MG TABLET PO (09:26)
[2023-04-19] MEDS: OLANZapine 2.5 MG TABLET PO ×3 (09:26→20:31)
[2023-04-19] MEDS: Divalproex Sodium 250 MG TABLET.DR 125 MG PO (11:30)
[2023-04-19 14:24] VITALS: BP 119/65; PULSE 77
[2023-04-19 18:00] VITALS: BP 132/73; PULSE 70; RESP 18; TEMP 36.1; O2SAT 94
[2023-04-19] MEDS: Ibuprofen 600 MG TABLET PO (19:46)
[2023-04-19] MEDS: Acetaminophen 325 MG TABLET 975 MG PO (20:24)
[2023-04-19] MEDS: Divalproex Sodium 250 MG TABLET.DR 750 MG PO (20:27)
[2023-04-19] MEDS: Nortriptyline HCl 25 MG CAPSULE 75 MG PO (20:28)
[2023-04-19] MEDS: Mirtazapine 7.5 MG TABLET PO (20:29)
[2023-04-19] MEDS: Zolpidem Tartrate 5 MG TABLET PO (20:30)
[2023-04-19] MEDS: Latanoprost 0.005 % Ophth Sol 2.5 ML DROPS 1 DROP EYE-BOTH (20:32)
[2023-04-20 08:20] VITALS: BP 144/81; PULSE 75; RESP 18; TEMP 36.8; O2SAT 96
[2023-04-20] MEDS: Propranolol HCL 20 MG TABLET PO ×3 (08:23→21:36)
[2023-04-20] MEDS: OLANZapine 2.5 MG TABLET PO ×3 (08:23→21:42)
[2023-04-20] MEDS: ALPRAZolam 0.25 MG TABLET PO ×3 (08:23→21:35)
[2023-04-20] MEDS: Vortioxetine Hydrobromide 5 MG TABLET PO (08:23)
[2023-04-20] MEDS: Nystatin Powder 15 GM BOTTLE 1 APPL TOPICAL ×2 (09:38→21:44)
[2023-04-20] MEDS: Clotrimazole 1 % Cream 15 GM TUBE 1 APPL TOPICAL (09:38)
[2023-04-20 15:30] VITALS: BP 117/80; PULSE 70
[2023-04-20] MEDS: Divalproex Sodium 250 MG TABLET.DR 125 MG PO (15:32)
[2023-04-20] MEDS: Artificial Tears 15 ML DROPS 1 DROP EYE-BOTH (15:39)
--- NOTE | 2023-04-20 16:43 | P.PNPSI_ITS ---
Subjective Subjective Date of Service: 04/20/23 Reason For Visit: Depression hopelessness irritability Subjective Notes: Conditional Voluntary Healthcare Proxy: No Guardianship: No Interim History: Patient is less labile better able to process information and delay gratification However there are periods of over sedation Medication Compliance: Yes Side effects from medications: Yes Attending Groups: Intermittent Mental Status Exam Mental Status Exam Patient Appearance: Well Grooomed and Appropriate Patient Orientation: Person and Situation Level of Consciousness: Awake and Appropriate Patient Behavior: Guarded and Passive Mood Description: Withdrawn and Depressed Affect Description: Constricted Patient Cognition Impaired: Yes Ability to Follow Directions: Good Speech Pattern: Clear Hallucinations: None Delusions: Not Present Thought Process: Linear Thought Content: positive for Circumstantial Judgement: Fair Diagnostics Vital Signs (24Hr): Vital Signs - 24 hr 04/19/23 18:00 04/20/23 08:20 04/20/23 15:30 Temperature 97 F 98.2 F Pulse Rate 70 75 70 Respiratory Rate 18 18 Blood Pressure 132/73 144/81 H 117/80 Pulse Oximetry 94 96 Oxygen Delivery Method Room Air Room Air BMI result Body Mass Index 30.2 Labs 04/09/23 07:59 04/09/23 07:59 Imaging Radiology Impressions: ITS Impressions Chest X-Ray 10/20/22 15:45 IMPRESSION: 1. Low lung volumes with bibasilar linear disc atelectasis versus scarring. 2. No airspace consolidation or effusion. Head CT 11/08/22 12:29 IMPRESSION: No acute intracranial hemorrhage or territorial infarction. Stable chronic postoperative changes with gliosis and encephalomalacia in the right frontal and right temporal lobes. Ex vacuo dilatation of the ventricles and diffuse parenchymal volume loss. Right-sided craniotomy changes. Chest X-Ray 11/12/22 10:32 IMPRESSION: Hypoexpanded lungs with bibasilar platelike atelectasis. Brain MRI 11/12/22 13:15 IMPRESSION: 1. No demonstrated acute intracranial abnormalities. 2. Chronic encephalomalacia of the right temporal, right frontal, and left occipital lobes. Small regions of chronic encephalomalacia in the parasagittal aspects of the bilateral parietal lobes. Moderate underlying microangiopathy and generalized cerebral volume loss. Chest X-Ray 11/14/22 15:52 IMPRESSION: Low lung volumes, bibasilar subsegmental atelectasis and slight elevation of the right hemidiaphragm similar to previous exam. Modified Barium Swallow 11/21/22 15:11 IMPRESSION: Laryngeal penetration on several occasions but no laryngeal aspiration. Mild retention of solid food in the valleculae which cleared with subsequent oral administration of water or thin barium. Correlate with speech therapy results. Orbit CT 01/23/23 14:05 IMPRESSION: - No definite significant intraorbital soft tissue findings to assessment is limited on a noncontrast CT of the orbits. No retrobulbar mass lesions and no cellulitic changes appreciated. - There are large fluid levels within the left maxillary sinus and within the right frontal sinus the can be correlated for clinical signs of acute sinusitis. - A peripherally ossified structure extending from the dorsal margin of the right nasolacrimal duct into the right maxillary sinus is stable when compared to examinations dated back to 08/24/2008 favoring a benign etiology. Cervical Spine CT 02/14/23 22:15 IMPRESSION: 1. No acute intracranial abnormality. Stable postsurgical changes with right frontotemporal encephalomalacia, global volume loss, and extraocular dilatation of the right lateral ventricle. 2. No cervical spine fracture or traumatic malalignment. Head CT 02/14/23 22:15 IMPRESSION: 1. No acute intracranial abnormality. Stable postsurgical changes with right frontotemporal encephalomalacia, global volume loss, and extraocular dilatation of the right lateral ventricle. 2. No cervical spine fracture or traumatic malalignment. Hip/Pelvis X-Ray 02/14/23 22:25 IMPRESSION: Moderate degenerative changes of the right hip with loss of superolateral joint space. Similar chronic posttraumatic deformity of the right femoral neck with chronic foreshortening. Status post left total hip arthroplasty in unchanged alignment however the lack of a crosstable lateral view limits assessment for dislocation. No acute fracture or dislocation appreciated on the available views. Foot X-Ray 02/22/23 13:50 IMPRESSION: * Postsurgical changes of arthrodesis first metatarsophalangeal joint. * There is developed large osteophyte from the head of the first metatarsal protruding laterally abutting the head of the second metatarsal. This might be the source of patient's pain. * Underlying degenerative osteoarthritis. Foot X-Ray 02/23/23 14:11 IMPRESSION: Mild degenerative changes MTP, PIP and DIP joints. No visible acute fracture or dislocation seen. Medications Medications Current Medications Acetaminophen (Acetaminophen 325 Mg Tablet) 975 mg PO Q6H PRN PRN Reason: Headache/Pain Mild Scale (1-3) Last Admin: 04/19/23 20:24 Dose: 975 mg Alprazolam (Alprazolam 0.25 Mg Tablet) 0.25 mg PO BEDTIME PRN PRN Reason: Insomnia Last Admin: 04/14/23 21:22 Dose: 0.25 mg Alprazolam (Alprazolam 0.25 Mg Tablet) 0.25 mg PO TID TAZ Last Admin: 04/20/23 15:31 Dose: 0.25 mg Artificial Tears (Artificial Tears 15 Ml Drops) 1 drop EYE-BOTH Q2H PRN PRN Reason: Dry Eyes Last Admin: 04/20/23 15:39 Dose: 1 drop Bisacodyl (Bisacodyl 10 Mg Supp.Rect) 10 mg [place] DAILY PRN PRN Reason: Constipation Clotrimazole (Clotrimazole 1 % Cream 15 Gm Tube) 1 appl TOPICAL BID TAZ; Protocol Last Admin: 04/20/23 09:38 Dose: 1 appl Divalproex Sodium (Divalproex Sodium 250 Mg Walt.) 750 mg PO BEDTIME TAZ Last Admin: 04/19/23 20:27 Dose: 750 mg Divalproex Sodium (Divalproex Sodium Sprinkles 125 Mg Cap.) 125 mg PO DAILY@1200 TAZ Guaifenesin/Dextromethorphan (Guaifenesin Dm 100/10/5 Ml 5 Ml Syrup) 5 ml PO Q 4H PRN PRN Reason: cough Last Admin: 03/27/23 22:10 Dose: 5 ml Hydrocortisone (Hydrocortisone 1 % Cream 28.35 Gm Tube) 1 appl TOPICAL BID PRN; Protocol PRN Reason: itchy feet Last Admin: 04/12/23 21:27 Dose: 1 appl Hydroxyzine HCl (Hydroxyzine Hcl 25 Mg Tablet) 25 mg PO Q4H PRN PRN Reason: Anxiety Last Admin: 04/18/23 13:46 Dose: 25 mg Ibuprofen (Ibuprofen 600 Mg Tablet) 600 mg PO Q6H PRN PRN Reason: Pain, Moderate(Pain Scale 4-6) Last Admin: 04/19/23 19:46 Dose: 600 mg Latanoprost (Latanoprost 0.005 % Ophth No 2.5 Ml Drops) 1 drop EYE-BOTH BEDTIME TAZ Last Admin: 04/19/23 20:32 Dose: 1 drop Lidocaine (Lidocaine 5 % Ointment 35 Gm) 1 appl TOPICAL Q6H PRN; Protocol PRN Reason: pain r foot Last Admin: 04/18/23 21:16 Dose: 1 appl Magnesium Hydroxide (Milk Of Magnesia 30 Ml Oral.Susp) 30 ml PO BID PRN PRN Reason: constipation, stomach/GI upset Last Admin: 04/06/23 21:24 Dose: 30 ml Mirtazapine (Mirtazapine 7.5 Mg Tablet) 7.5 mg PO BEDTIME TAZ Last Admin: 04/19/23 20:29 Dose: 7.5 mg Nortriptyline HCl (Nortriptyline Hcl 25 Mg Capsule) 75 mg PO BEDTIME TAZ Last Admin: 04/19/23 20:28 Dose: 75 mg Nystatin (Nystatin Powder 15 Gm Bottle) 1 appl TOPICAL BID TAZ; Protocol Last Admin: 04/20/23 09:38 Dose: 1 appl Olanzapine (Olanzapine 2.5 Mg Tablet) 2.5 mg PO Q4H PRN PRN Reason: anxiety/restlessness Last Admin: 03/30/23 00:02 Dose: 2.5 mg Olanzapine (Olanzapine 2.5 Mg Tablet) 2.5 mg PO TID TAZ Last Admin: 04/20/23 15:31 Dose: 2.5 mg Ondansetron HCl (Ondansetron Odt 4 Mg Tab.Rapdis) 4 mg TRANSLINGU Q6H PRN PRN Reason: Nausea and Vomiting Last Admin: 03/20/23 09:13 Dose: 4 mg Polyethylene Glycol (Polyethylene Glycol 3350 17 Gm Powd.Pack) 17 gm PO DAILY PRN PRN Reason: Constipation Last Admin: 04/19/23 09:26 Dose: 17 gm Propranolol HCl (Propranolol Hcl 20 Mg Tablet) 20 mg PO TID TAZ; Protocol Last Admin: 04/20/23 15:31 Dose: 20 mg Senna/Docusate Sodium (Sennosides/Docusate Sodium Tablet) 2 tab PO BEDTIME TAZ Last Admin: 04/20/23 05:10 Dose: Not Given Sodium Chloride (Sodium Chloride 0.65 % Nasal 44 Ml Sprbtl) 1 spray NOSTRIL-B Q1H PRN PRN Reason: Nasal Congestion Last Admin: 02/26/23 21:14 Dose: 1 spray Vortioxetine (Vortioxetine Hydrobromide 5 Mg Tablet) 5 mg PO DAILY TAZ Last Admin: 04/20/23 08:23 Dose: 5 mg Allergies Allergies Allergy/AdvReac Type Severity Reaction Status Date / Time fentanyl [FENTANYL] Allergy Intermediate unknown Verified 04/08/22 07:00 Assessment & Plan Assessment & Plan (1) Major depressive disorder, recurrent severe without psychotic features: Status: Acute Code(s): F33.2 - Major depressive disorder, recurrent severe without psychotic features (2) Cognitive and neurobehavioral dysfunction following brain injury: Status: Acute Code(s): G31.89 - Other specified degenerative diseases of nervous system; F09 - Unspecified mental disorder due to known physiological condition; S06.9X9S - Unspecified intracranial injury with loss of consciousness of unspecified duration, sequela (3) Personality disorder in adult: Status: Acute Code(s): F60.9 - Personality disorder, unspecified Plan ALPRAZOLAM 0.25 B.I.D. 0.5 BEDTIME OLANZAPINE ALSO 3 TIMES A DAY CONTINUE DEPAKOTE START PROPRANOLOL 10 T.I.D. THE PATIENT CONFRONTED REGARDING NEGATIVE TOXIC BEHAVIOR DIFFICULTY COPING AND NEGATIVE COMPLICATIONS TO HIS LIFE IF CONTINUE VERBALLY AGGRESSIVE AND TOXIC BEHAVIOR WITH OTHERS DEVALUATION ENCOURAGE REFLECTION STRESS MANAGEMENT COPING STRATEGIES 03/07 continue same treatment 03/08 continue same treatment 03/09 continue same treatment 03/10/23 Lower alprazolam .125 mg bid hold afternoon olanzapine secondary to slurring oversedation cont propranolol 03/11/23 Pt doing better less sedated struggles to maintain pos attitude 03/13 continue tx. 03/14: stable presentation, no change in mgmt. 03/15: appears sedated. no change in mgmt today. to F/U with attending tomorrow re meds for anxiety. 03/16 continue tx. 03/17 continue tx. 03/18 continue tx. 03/19 continue tx. 03/22 continue tx. 03/23 continue tx. 03/24/2023 Continue treatment plan discharge planning 03/25/2023 Continue plan of care 03/26/2023 Continued discharge planning needs much reassurance 03/27 continue tx. 03/28: Continue treatment plan. 03/29: Continue current treatment plan 03/30 continue tx. 03/31 continue tx. 04/02 no changes in treatment 04/03/2023 Patient more reactive belligerent kicked out at another person and was reactive with staff and aggressive. Seems much more triggered by stimulation difficulty reflecting discussed with patient increasing olanzapine alprazolam for behavioral control 04/07/23 Cont depakote olanzpine alprazolam encourage strategies to deal with triggers d/c planning 04/08/2023 Depakote increased by 125 mg nortriptyline increased continue discharge planning CK CHEM UA CBC 04/09/23 Patient has become increasingly depressed olanzapine Depakote could not effective for dysphoria irritability case reviewed dr nelson consider ect mirtazapine 04/10 Add Ambien 5 mg at hs 04/11: Continue current treatment plan. 04/12: Continue current treatment plan. 04/13: Continue current plan of care. 04/14 cont plan of care 04/15/23 Start trintellix 5mg daily 04/17/23 Continue treatment plan patient was seen 04/16 and 04/17 Mood generally improved less labile future oriented feels better able to try keep his future focus not current triggers in the inpatient setting nortriptyline has been increased 75 mg Trintellix 5 mg 04/19 keep same treatment 04/20/2023 Lower olanzapine 2.5 at bedtime continue p.r.n. 2.5 hopefully will help with feelings of sedation monitor mood Reason for continued inpatient stay Substantial Risk for: inability to function and rapid decompensation Time Spent With Patient Time: Total time managing care of this patient today ____ minutes.
[2023-04-20 18:00] VITALS: BP 118/76; PULSE 67; RESP 16; TEMP 35.9; O2SAT 96
[2023-04-20] MEDS: Divalproex Sodium 250 MG TABLET.DR 750 MG PO (21:33)
[2023-04-20] MEDS: Nortriptyline HCl 25 MG CAPSULE 75 MG PO (21:34)
[2023-04-20] MEDS: Acetaminophen 325 MG TABLET 975 MG PO (21:34)
[2023-04-20] MEDS: Mirtazapine 7.5 MG TABLET PO (21:36)
[2023-04-20] MEDS: Sennosides/Docusate Sodium TABLET 2 TAB PO (21:43)
[2023-04-20] MEDS: Latanoprost 0.005 % Ophth Sol 2.5 ML DROPS 1 DROP EYE-BOTH (21:44)
[2023-04-20] MEDS: Lidocaine 5 % Ointment 35 GM 1 APPL TOPICAL (21:45)
[2023-04-20] MEDS: Zolpidem Tartrate 5 MG TABLET PO (22:05)
[2023-04-21 08:00] VITALS: BP 130/75; PULSE 69; RESP 18; TEMP 36.6; O2SAT 95
[2023-04-21] MEDS: Propranolol HCL 20 MG TABLET PO ×3 (08:05→20:54)
[2023-04-21] MEDS: ALPRAZolam 0.25 MG TABLET PO ×3 (08:05→20:54)
[2023-04-21] MEDS: Vortioxetine Hydrobromide 5 MG TABLET PO (08:05)
[2023-04-21] MEDS: polyethylene glycoL 3350 17 GM POWD.PACK PO (08:10)
[2023-04-21] MEDS: Nystatin Powder 15 GM BOTTLE 1 APPL TOPICAL ×2 (08:37→20:57)
[2023-04-21] MEDS: Clotrimazole 1 % Cream 15 GM TUBE 1 APPL TOPICAL ×2 (08:37→20:57)
[2023-04-21] MEDS: Divalproex Sodium Sprinkles 125 MG CAP.DR.SPR PO (11:35)
--- NOTE | 2023-04-21 16:50 | P.PNPSI_ITS ---
Subjective Subjective Date of Service: 04/21/23 Reason For Visit: Depression hopelessness irritability Subjective Notes: Conditional Voluntary Interim History: Pt reports fair sleep. He reports trying to be patient waiting for GH. He had episode of combative behavior towards staff. He reports feeling increasingly more frustrated about being here on the unit. He denies SI/HI. He is taking medications as prescribed. Medication Compliance: Yes Review of Systems Review of Systems unremarkable Yes all other systems are reviewed and are negative, Unobtainable due to mental condition and Unobtainable due to mental status Mental Status Exam Mental Status Exam Narrative: Patient Appearance: Well Grooomed and Appropriate Patient Orientation: Person and Situation Level of Consciousness: Awake and Appropriate Patient Behavior: Guarded and Passive Behavior Comments: Mood Description: Withdrawn and Depressed Affect Description: Constricted Patient Cognition Impaired: Yes Ability to Follow Directions: Good Speech Pattern: Clear Memory Description: Intact Diagnostics Vital Signs (24Hr): Vital Signs - 24 hr 04/20/23 18:00 04/21/23 08:00 Temperature 96.7 F L 97.9 F Pulse Rate 67 69 Respiratory Rate 16 18 Blood Pressure 118/76 130/75 Pulse Oximetry 96 95 Oxygen Delivery Method Room Air Room Air BMI result Body Mass Index 30.2 Labs 04/09/23 07:59 04/09/23 07:59 Imaging Radiology Impressions: ITS Impressions Chest X-Ray 10/20/22 15:45 IMPRESSION: 1. Low lung volumes with bibasilar linear disc atelectasis versus scarring. 2. No airspace consolidation or effusion. Head CT 11/08/22 12:29 IMPRESSION: No acute intracranial hemorrhage or territorial infarction. Stable chronic postoperative changes with gliosis and encephalomalacia in the right frontal and right temporal lobes. Ex vacuo dilatation of the ventricles and diffuse parenchymal volume loss. Right-sided craniotomy changes. Chest X-Ray 11/12/22 10:32 IMPRESSION: Hypoexpanded lungs with bibasilar platelike atelectasis. Brain MRI 11/12/22 13:15 IMPRESSION: 1. No demonstrated acute intracranial abnormalities. 2. Chronic encephalomalacia of the right temporal, right frontal, and left occipital lobes. Small regions of chronic encephalomalacia in the parasagittal aspects of the bilateral parietal lobes. Moderate underlying microangiopathy and generalized cerebral volume loss. Chest X-Ray 11/14/22 15:52 IMPRESSION: Low lung volumes, bibasilar subsegmental atelectasis and slight elevation of the right hemidiaphragm similar to previous exam. Modified Barium Swallow 11/21/22 15:11 IMPRESSION: Laryngeal penetration on several occasions but no laryngeal aspiration. Mild retention of solid food in the valleculae which cleared with subsequent oral administration of water or thin barium. Correlate with speech therapy results. Orbit CT 01/23/23 14:05 IMPRESSION: - No definite significant intraorbital soft tissue findings to assessment is limited on a noncontrast CT of the orbits. No retrobulbar mass lesions and no cellulitic changes appreciated. - There are large fluid levels within the left maxillary sinus and within the right frontal sinus the can be correlated for clinical signs of acute sinusitis. - A peripherally ossified structure extending from the dorsal margin of the right nasolacrimal duct into the right maxillary sinus is stable when compared to examinations dated back to 08/24/2008 favoring a benign etiology. Cervical Spine CT 02/14/23 22:15 IMPRESSION: 1. No acute intracranial abnormality. Stable postsurgical changes with right frontotemporal encephalomalacia, global volume loss, and extraocular dilatation of the right lateral ventricle. 2. No cervical spine fracture or traumatic malalignment. Head CT 02/14/23 22:15 IMPRESSION: 1. No acute intracranial abnormality. Stable postsurgical changes with right frontotemporal encephalomalacia, global volume loss, and extraocular dilatation of the right lateral ventricle. 2. No cervical spine fracture or traumatic malalignment. Hip/Pelvis X-Ray 02/14/23 22:25 IMPRESSION: Moderate degenerative changes of the right hip with loss of superolateral joint space. Similar chronic posttraumatic deformity of the right femoral neck with chronic foreshortening. Status post left total hip arthroplasty in unchanged alignment however the lack of a crosstable lateral view limits assessment for dislocation. No acute fracture or dislocation appreciated on the available views. Foot X-Ray 02/22/23 13:50 IMPRESSION: * Postsurgical changes of arthrodesis first metatarsophalangeal joint. * There is developed large osteophyte from the head of the first metatarsal protruding laterally abutting the head of the second metatarsal. This might be the source of patient's pain. * Underlying degenerative osteoarthritis. Foot X-Ray 02/23/23 14:11 IMPRESSION: Mild degenerative changes MTP, PIP and DIP joints. No visible acute fracture or dislocation seen. Medications Medications Current Medications Acetaminophen (Acetaminophen 325 Mg Tablet) 975 mg PO Q6H PRN PRN Reason: Headache/Pain Mild Scale (1-3) Last Admin: 04/20/23 21:34 Dose: 975 mg Alprazolam (Alprazolam 0.25 Mg Tablet) 0.25 mg PO BEDTIME PRN PRN Reason: Insomnia Last Admin: 04/14/23 21:22 Dose: 0.25 mg Alprazolam (Alprazolam 0.25 Mg Tablet) 0.25 mg PO TID TAZ Last Admin: 04/21/23 15:17 Dose: 0.25 mg Artificial Tears (Artificial Tears 15 Ml Drops) 1 drop EYE-BOTH Q2H PRN PRN Reason: Dry Eyes Last Admin: 04/20/23 15:39 Dose: 1 drop Bisacodyl (Bisacodyl 10 Mg Supp.Rect) 10 mg [place] DAILY PRN PRN Reason: Constipation Clotrimazole (Clotrimazole 1 % Cream 15 Gm Tube) 1 appl TOPICAL BID TAZ; Protocol Last Admin: 04/21/23 08:37 Dose: 1 appl Divalproex Sodium (Divalproex Sodium 250 Mg Tablet.Dr) 750 mg PO BEDTIME TAZ Last Admin: 04/20/23 21:33 Dose: 750 mg Divalproex Sodium (Divalproex Sodium Sprinkles 125 Mg Cap.Dr.Spr) 125 mg PO DAILY@1200 TAZ Last Admin: 04/21/23 11:35 Dose: 125 mg Guaifenesin/Dextromethorphan (Guaifenesin Dm 100/10/5 Ml 5 Ml Syrup) 5 ml PO Q4H PRN PRN Reason: cough Last Admin: 03/27/23 22:10 Dose: 5 ml Hydrocortisone (Hydrocortisone 1 % Cream 28.35 Gm Tube) 1 appl TOPICAL BID PRN; Protocol PRN Reason: itchy feet Last Admin: 04/12/23 21:27 Dose: 1 appl Hydroxyzine HCl (Hydroxyzine Hcl 25 Mg Tablet) 25 mg PO Q4H PRN PRN Reason: Anxiety Last Admin: 04/18/23 13:46 Dose: 25 mg Ibuprofen (Ibuprofen 600 Mg Tablet) 600 mg PO Q6H PRN PRN Reason: Pain, Moderate(Pain Scale 4-6) Last Admin: 04/19/23 19:46 Dose: 600 mg Latanoprost (Latanoprost 0.005 % Ophth No 2.5 Ml Drops) 1 drop EYE-BOTH BEDTIME TAZ Last Admin: 04/20/23 21:44 Dose: 1 drop Lidocaine (Lidocaine 5 % Ointment 35 Gm) 1 appl TOPICAL Q6H PRN; Protocol PRN Reason: pain r foot Last Admin: 04/20/23 21:45 Dose: 1 appl Magnesium Hydroxide (Milk Of Magnesia 30 Ml Oral.Susp) 30 ml PO BID PRN PRN Reason: constipation, stomach/GI upset Last Admin: 04/06/23 21:24 Dose: 30 ml Mirtazapine (Mirtazapine 7.5 Mg Tablet) 7.5 mg PO BEDTIME TAZ Last Admin: 04/20/23 21:36 Dose: 7.5 mg Nortriptyline HCl (Nortriptyline Hcl 25 Mg Capsule) 75 mg PO BEDTIME TAZ Last Admin: 04/20/23 21:34 Dose: 75 mg Nystatin (Nystatin Powder 15 Gm Bottle) 1 appl TOPICAL BID TAZ; Protocol Last Admin: 04/21/23 08:37 Dose: 1 appl Olanzapine (Olanzapine 2.5 Mg Tablet) 2.5 mg PO Q4H PRN PRN Reason: anxiety/restlessness Last Admin: 03/30/23 00:02 Dose: 2.5 mg Olanzapine (Olanzapine 2.5 Mg Tablet) 2.5 mg PO BEDTIME TAZ Ondansetron HCl (Ondansetron Odt 4 Mg Tab.Rapdis) 4 mg TRANSLINGU Q6H PRN PRN Reason: Nausea and Vomiting Last Admin: 03/20/23 09:13 Dose: 4 mg Polyethylene Glycol (Polyethylene Glycol 3350 17 Gm Powd.Pack) 17 gm PO DAILY PRN PRN Reason: Constipation Last Admin: 04/21/23 08:10 Dose: 17 gm Propranolol HCl (Propranolol Hcl 20 Mg Tablet) 20 mg PO TID TAZ; Protocol Last Admin: 04/21/23 15:17 Dose: 20 mg Senna/Docusate Sodium (Sennosides/Docusate Sodium Tablet) 2 tab PO BEDTIME TAZ Last Admin: 04/20/23 21:43 Dose: 1 tab Sodium Chloride (Sodium Chloride 0.65 % Nasal 44 Ml Sprbtl) 1 spray NOSTRIL-B Q1H PRN PRN Reason: Nasal Congestion Last Admin: 02/26/23 21:14 Dose: 1 spray Vortioxetine (Vortioxetine Hydrobromide 5 Mg Tablet) 5 mg PO DAILY TAZ Last Admin: 04/21/23 08:05 Dose: 5 mg Zolpidem Tartrate (Zolpidem Tartrate 5 Mg Tablet) 5 mg PO BEDTIME PRN PRN Reason: Insomnia Allergies Allergies Allergy/AdvReac Type Severity Reaction Status Date / Time fentanyl [FENTANYL] Allergy Intermediate unknown Verified 04/08/22 07:00 Assessment & Plan Assessment & Plan (1) Major depressive disorder, recurrent severe without psychotic features: Status: Acute Code(s): F33.2 - Major depressive disorder, recurrent severe without psychotic features (2) Cognitive and neurobehavioral dysfunction following brain injury: Status: Acute Code(s): G31.89 - Other specified degenerative diseases of nervous system; F09 - Unspecified mental disorder due to known physiological condition; S06.9X9S - Unspecified intracranial injury with loss of consciousness of unspecified duration, sequela (3) Personality disorder in adult: Status: Acute Code(s): F60.9 - Personality disorder, unspecified Plan ALPRAZOLAM 0.25 B.I.D. 0.5 BEDTIME OLANZAPINE ALSO 3 TIMES A DAY CONTINUE DEPAKOTE START PROPRANOLOL 10 T.I.D. THE PATIENT CONFRONTED REGARDING NEGATIVE TOXIC BEHAVIOR DIFFICULTY COPING AND NEGATIVE COMPLICATIONS TO HIS LIFE IF CONTINUE VERBALLY AGGRESSIVE AND TOXIC BEHAVIOR WITH OTHERS DEVALUATION ENCOURAGE REFLECTION STRESS MANAGEMENT COPING STRATEGIES 03/07 continue same treatment 03/08 continue same treatment 03/09 continue same treatment 03/10/23 Lower alprazolam .125 mg bid hold afternoon olanzapine secondary to slurring oversedation cont propranolol 03/11/23 Pt doing better less sedated struggles to maintain pos attitude 03/13 continue tx. 03/14: stable presentation, no change in mgmt. 03/15: appears sedated. no change in mgmt today. to F/U with attending tomorrow re meds for anxiety. 03/16 continue tx. 03/17 continue tx. 03/18 continue tx. 03/19 continue tx. 03/22 continue tx. 03/23 continue tx. 03/24/2023 Continue treatment plan discharge planning 03/25/2023 Continue plan of care 03/26/2023 Continued discharge planning needs much reassurance 03/27 continue tx. 03/28: Continue treatment plan. 03/29: Continue current treatment plan 03/30 continue tx. 03/31 continue tx. 04/02 no changes in treatment 04/03/2023 Patient more reactive belligerent kicked out at another person and was reactive with staff and aggressive. Seems much more triggered by stimulation difficulty reflecting discussed with patient increasing olanzapine alprazolam for b ehavioral control 04/07/23 Cont depakote olanzpine alprazolam encourage strategies to deal with triggers d/c planning 04/08/2023 Depakote increased by 125 mg nortriptyline increased continue discharge planning CK CHEM UA CBC 04/09/23 Patient has become increasingly depressed olanzapine Depakote could not effective for dysphoria irritability case reviewed dr nelson consider ect mirtazapine 04/10 Add Ambien 5 mg at hs 04/11: Continue current treatment plan. 04/12: Continue current treatment plan. 04/13: Continue current plan of care. 04/14 cont plan of care 04/15/23 Start trintellix 5mg daily 04/17/23 Continue treatment plan patient was seen 04/16 and 04/17 Mood generally improved less labile future oriented feels better able to try keep his future focus not current triggers in the inpatient setting nortriptyline has been increased 75 mg Trintellix 5 mg 04/19 keep same treatment 04/20/2023 Lower olanzapine 2.5 at bedtime continue p.r.n. 2.5 hopefully will help with feelings of sedation monitor mood 04/21 continue tx. Reason for continued inpatient stay Substantial Risk for: inability to function Time Spent With Patient Time: Total time managing care of this patient today ____ minutes.
[2023-04-21 19:45] VITALS: BP 126/67; PULSE 70; RESP 16; TEMP 36.2; O2SAT 94
[2023-04-21] MEDS: OLANZapine 2.5 MG TABLET PO (20:54)
[2023-04-21] MEDS: Mirtazapine 7.5 MG TABLET PO (20:54)
[2023-04-21] MEDS: Divalproex Sodium 250 MG TABLET.DR 750 MG PO (20:54)
[2023-04-21] MEDS: Sennosides/Docusate Sodium TABLET 2 TAB PO (20:54)
[2023-04-21] MEDS: Nortriptyline HCl 25 MG CAPSULE 75 MG PO (20:54)
[2023-04-21] MEDS: Latanoprost 0.005 % Ophth Sol 2.5 ML DROPS 1 DROP EYE-BOTH (20:56)
[2023-04-21] MEDS: Lidocaine 5 % Ointment 35 GM 1 APPL TOPICAL (21:02)
[2023-04-21] MEDS: Ibuprofen 600 MG TABLET PO (21:08)
[2023-04-22 06:00] VITALS: BP 138/78; PULSE 71; RESP 18; TEMP 36.1; O2SAT 95
[2023-04-22] MEDS: Vortioxetine Hydrobromide 5 MG TABLET PO (08:57)
[2023-04-22] MEDS: Propranolol HCL 20 MG TABLET PO ×3 (08:57→21:35)
[2023-04-22] MEDS: ALPRAZolam 0.25 MG TABLET PO ×3 (08:57→21:34)
[2023-04-22] MEDS: polyethylene glycoL 3350 17 GM POWD.PACK PO (08:59)
[2023-04-22] MEDS: OLANZapine 2.5 MG TABLET PO ×2 (09:07→21:35)
--- NOTE | 2023-04-22 10:03 | HO.PSYCHPN ---
Subjective Subjective Date of Service: 04/22/23 Reason For Visit: Depression hopelessness irritability Subjective Notes: Conditional Voluntary Interim History: Nursing staff reported the patient had being in good behavior control denies suicidal ideation. On interview the patient denies new symptoms, waiting for placement Mental Status Exam Mental Status Exam Patient Appearance: Well Grooomed and Appropriate Patient Orientation: Person and Situation Level of Consciousness: Awake and Appropriate Patient Behavior: Guarded and Passive Mood Description: Withdrawn and Constricted Affect Description: Calm Patient Cognition Impaired: Yes Ability to Follow Directions: Good Speech Pattern: Clear Hallucinations: None Delusions: Not Present Thought Process: Distracted and Linear Thought Content: positive for [place] and positive for Poverty of Content Judgement: Fair Diagnostics Vital Signs (24Hr): Vital Signs - 24 hr 04/21/23 19:45 04/22/23 06:00 Temperature 97.2 F 96.9 F Pulse Rate 70 71 Respiratory Rate 16 18 Blood Pressure 126/67 138/78 Pulse Oximetry 94 95 Oxygen Delivery Method Room Air Room Air BMI result Body Mass Index 30.2 Labs 04/09/23 07:59 04/09/23 07:59 Imaging Radiology Impressions: ITS Impressions Chest X-Ray 10/20/22 15:45 IMPRESSION: 1. Low lung volumes with bibasilar linear disc atelectasis versus scarring. 2. No airspace consolidation or effusion. Head CT 11/08/22 12:29 IMPRESSION: No acute intracranial hemorrhage or territorial infarction. Stable chronic postoperative changes with gliosis and encephalomalacia in the right frontal and right temporal lobes. Ex vacuo dilatation of the ventricles and diffuse parenchymal volume loss. Right-sided craniotomy changes. Chest X-Ray 11/12/22 10:32 IMPRESSION: Hypoexpanded lungs with bibasilar platelike atelectasis. Brain MRI 11/12/22 13:15 IMPRESSION: 1. No demonstrated acute intracranial abnormalities. 2. Chronic encephalomalacia of the right temporal, right frontal, and left occipital lobes. Small regions of chronic encephalomalacia in the parasagittal aspects of the bilateral parietal lobes. Moderate underlying microangiopathy and generalized cerebral volume loss. Chest X-Ray 11/14/22 15:52 IMPRESSION: Low lung volumes, bibasilar subsegmental atelectasis and slight elevation of the right hemidiaphragm similar to previous exam. Modified Barium Swallow 11/21/22 15:11 IMPRESSION: Laryngeal penetration on several occasions but no laryngeal aspiration. Mild retention of solid food in the valleculae which cleared with subsequent oral administration of water or thin barium. Correlate with speech therapy results. Orbit CT 01/23/23 14:05 IMPRESSION: - No definite significant intraorbital soft tissue findings to assessment is limited on a noncontrast CT of the orbits. No retrobulbar mass lesions and no cellulitic changes appreciated. - There are large fluid levels within the left maxillary sinus and within the right frontal sinus the can be correlated for clinical signs of acute sinusitis. - A peripherally ossified structure extending from the dorsal margin of the right nasolacrimal duct into the right maxillary sinus is stable when compared to examinations dated back to 08/24/2008 favoring a benign etiology. Cervical Spine CT 02/14/23 22:15 IMPRESSION: 1. No acute intracranial abnormality. Stable postsurgical changes with right frontotemporal encephalomalacia, global volume loss, and extraocular dilatation of the right lateral ventricle. 2. No cervical spine fracture or traumatic malalignment. Head CT 02/14/23 22:15 IMPRESSION: 1. No acute intracranial abnormality. Stable postsurgical changes with right frontotemporal encephalomalacia, global volume loss, and extraocular dilatation of the right lateral ventricle. 2. No cervical spine fracture or traumatic malalignment. Hip/Pelvis X-Ray 02/14/23 22:25 IMPRESSION: Moderate degenerative changes of the right hip with loss of superolateral joint space. Similar chronic posttraumatic deformity of the right femoral neck with chronic foreshortening. Status post left total hip arthroplasty in unchanged alignment however the lack of a crosstable lateral view limits assessment for dislocation. No acute fracture or dislocation appreciated on the available views. Foot X-Ray 02/22/23 13:50 IMPRESSION: * Postsurgical changes of arthrodesis first metatarsophalangeal joint. * There is developed large osteophyte from the head of the first metatarsal protruding laterally abutting the head of the second metatarsal. This might be the source of patient's pain. * Underlying degenerative osteoarthritis. Foot X-Ray 02/23/23 14:11 IMPRESSION: Mild degenerative changes MTP, PIP and DIP joints. No visible acute fracture or dislocation seen. Medications Medications Current Medications Acetaminophen (Acetaminophen 325 Mg Tablet) 975 mg PO Q6H PRN PRN Reason: Headache/Pain Mild Scale (1-3) Last Admin: 04/20/23 21:34 Dose: 975 mg Alprazolam (Alprazolam 0.25 Mg Tablet) 0.25 mg PO BEDTIME PRN PRN Reason: Insomnia Last Admin: 04/14/23 21:22 Dose: 0.25 mg Alprazolam (Alprazolam 0.25 Mg Tablet) 0.25 mg PO TID TAZ Last Admin: 04/22/23 08:57 Dose: 0.25 mg Artificial Tears (Artificial Tears 15 Ml Drops) 1 drop EYE-BOTH Q2H PRN PRN Reason: Dry Eyes Last Admin: 04/20/23 15:39 Dose: 1 drop Bisacodyl (Bisacodyl 10 Mg Supp.Rect) 10 mg [place] DAILY PRN PRN Reason: Constipation Clotrimazole (Clotrimazole 1 % Cream 15 Gm Tube) 1 appl TOPICAL BID TAZ; Protocol Last Admin: 04/22/23 09:01 Dose: Not Given Divalproex Sodium (Divalproex Sodium 250 Mg Tablet) 750 mg PO BEDTIME TAZ Last Admin: 04/21/23 20:54 Dose: 750 mg Divalproex Sodium (Divalproex Sodium Sprinkles 125 Mg Cap.Spr) 125 mg PO DAILY@1200 TAZ Last Admin: 04/21/23 11:35 Dose: 125 mg Guaifenesin/Dextromethorphan (Guaifenesin Dm 100/10/5 Ml 5 Ml Syrup) 5 ml PO Q4H PRN PRN Reason: cough Last Admin: 03/27/23 22:10 Dose: 5 ml Hydrocortisone (Hydrocortisone 1 % Cream 28.35 Gm Tube) 1 appl TOPICAL BID PRN; Protocol PRN Reason: itchy feet Last Admin: 04/12/23 21:27 Dose: 1 appl Hydroxyzine HCl (Hydroxyzine Hcl 25 Mg Tablet) 25 mg PO Q4H PRN PRN Reason: Anxiety Last Admin: 04/18/23 13:46 Dose: 25 mg Ibuprofen (Ibuprofen 600 Mg Tablet) 600 mg PO Q6H PRN PRN Reason: Pain, Moderate(Pain Scale 4-6) Last Admin: 04/21/23 21:08 Dose: 600 mg Latanoprost (Latanoprost 0.005 % Ophth No 2.5 Ml Drops) 1 drop EYE-BOTH BEDTIME TAZ Last Admin: 04/21/23 20:56 Dose: 1 drop Lidocaine (Lidocaine 5 % Ointment 35 Gm) 1 appl TOPICAL Q6H PRN; Protocol PRN Reason: pain r foot Last Admin: 04/21/23 21:02 Dose: 1 appl Magnesium Hydroxide (Milk Of Magnesia 30 Ml Oral.Susp) 30 ml PO BID PRN PRN Reason: constipation, stomach/GI upset Last Admin: 04/06/23 21:24 Dose: 30 ml Mirtazapine (Mirtazapine 7.5 Mg Tablet) 7.5 mg PO BEDTIME TAZ Last Admin: 04/21/23 20:54 Dose: 7.5 mg Nortriptyline HCl (Nortriptyline Hcl 25 Mg Capsule) 75 mg PO BEDTIME TAZ Last Admin: 04/21/23 20:54 Dose: 75 mg Nystatin (Nystatin Powder 15 Gm Bottle) 1 appl TOPICAL BID TAZ; Protocol Last Admin: 04/22/23 09:01 Dose: Not Given Olanzapine (Olanzapine 2.5 Mg Tablet) 2.5 mg PO Q4H PRN PRN Reason: anxiety/restlessness Last Admin: 04/22/23 09:07 Dose: 2.5 mg Olanzapine (Olanzapine 2.5 Mg Tablet) 2.5 mg PO BEDTIME TAZ Last Admin: 04/21/23 20:54 Dose: 2.5 mg Ondansetron HCl (Ondansetron Odt 4 Mg Tab.Rapdis) 4 mg TRANSLINGU Q6H PRN PRN Reason: Nausea and Vomiting Last Admin: 03/20/23 09:13 Dose: 4 mg Polyethylene Glycol (Polyethylene Glycol 3350 17 Gm Powd.Pack) 17 gm PO DAILY PRN PRN Reason: Constipation Last Admin: 04/22/23 08:59 Dose: 17 gm Propranolol HCl (Propranolol Hcl 20 Mg Tablet) 20 mg PO TID TAZ; Protocol Last Admin: 04/22/23 08:57 Dose: 20 mg Senna/Docusate Sodium (Sennosides/Docusate Sodium Tablet) 2 tab PO BEDTIME TAZ Last Admin: 04/21/23 20:54 Dose: 2 tab Sodium Chloride (Sodium Chloride 0.65 % Nasal 44 Ml Sprbtl) 1 spray NOSTRIL-B Q1H PRN PRN Reason: Nasal Congestion Last Admin: 02/26/23 21:14 Dose: 1 spray Vortioxetine (Vortioxetine Hydrobromide 5 Mg Tablet) 5 mg PO DAILY TAZ Last Admin: 04/22/23 08:57 Dose: 5 mg Zolpidem Tartrate (Zolpidem Tartrate 5 Mg Tablet) 5 mg PO BEDTIME PRN PRN Reason: Insomnia Allergies Allergies Allergy/AdvReac Type Severity Reaction Status Date / Time fentanyl [FENTANYL] Allergy Intermediate unknown Verified 04/08/22 07:00 Assessment & Plan Assessment & Plan (1) Major depressive disorder, recurrent severe without psychotic features: Status: Acute Code(s): F33.2 - Major depressive disorder, recurrent severe without psychotic features (2) Cognitive and neurobehavioral dysfunction following brain injury: Status: Acute Code(s): G31.89 - Other specified degenerative diseases of nervous system; F09 - Unspecified mental disorder due to known physiological condition; S06.9X9S - Unspecified intracranial injury with loss of consciousness of unspecified duration, sequela (3) Personality disorder in adult: Status: Acute Code(s): F60.9 - Personality disorder, unspecified Plan ALPRAZOLAM 0.25 B.I.D. 0.5 BEDTIME OLANZAPINE ALSO 3 TIMES A DAY CONTINUE DEPAKOTE START PROPRANOLOL 10 T.I.D. THE PATIENT CONFRONTED REGARDING NEGATIVE TOXIC BEHAVIOR DIFFICULTY COPING AND NEGATIVE COMPLICATIONS TO HIS LIFE IF CONTINUE VERBALLY AGGRESSIVE AND TOXIC BEHAVIOR WITH OTHERS DEVALUATION ENCOURAGE REFLECTION STRESS MANAGEMENT COPING STRATEGIES 03/07 continue same treatment 03/08 continue same treatment 03/09 continue same treatment 03/10/23 Lower alprazolam .125 mg bid hold afternoon olanzapine secondary to slurring oversedation cont propranolol 03/11/23 Pt doing better less sedated struggles to maintain pos attitude 03/13 continue tx. 03/14: stable presentation, no change in mgmt. 03/15: appears sedated. no change in mgmt today. to F/U with attending tomorrow re meds for anxiety. 03/16 continue tx. 03/17 continue tx. 03/18 continue tx. 03/19 continue tx. 03/22 continue tx. 03/23 continue tx. 03/24/2023 Continue treatment plan discharge planning 03/25/2023 Continue plan of care 03/26/2023 Continued discharge planning needs much reassurance 03/27 continue tx. 03/28: Continue treatment plan. 03/29: Continue current treatment plan 03/30 continue tx. 03/31 continue tx. 04/02 no changes in treatment 04/03/2023 Patient more reactive belligerent kicked out at another person and was reactive with staff and aggressive. Seems much more triggered by stimulation difficulty reflecting discussed with patient increasing olanzapine alprazolam for behavioral control 04/07/23 Cont depakote olanzpine alprazolam encourage strategies to deal with triggers d/c planning 04/08/2023 Depakote increased by 125 mg nortriptyline increased continue discharge planning CK CHEM UA CBC 04/09/23 Patient has become increasingly depressed olanzapine Depakote could not effective for dysphoria irritability case reviewed dr nelson consider ect mirtazapine 04/10 Add Ambien 5 mg at hs 04/11: Continue current treatment plan. 04/12: Continue current treatment plan. 04/13: Continue current plan of care. 04/14 cont plan of care 04/15/23 Start trintellix 5mg daily 04/17/23 Continue treatment plan patient was seen 04/16 and 04/17 Mood generally improved less labile future oriented feels better able to try keep his future focus not current triggers in the inpatient setting nortriptyline has been increased 75 mg Trintellix 5 mg 04/19 keep same treatment 04/20/2023 Lower olanzapine 2.5 at bedtime continue p.r.n. 2.5 hopefully will help with feelings of sedation monitor mood 04/21 continue tx. 04/22 continue tx. Reason for continued inpatient stay Substantial Risk for: inability to function, rapid decompensation and med/psych decompensation Time Spent With Patient Time: Total time managing care of this patient today __20__ minutes.
[2023-04-22] MEDS: Divalproex Sodium Sprinkles 125 MG CAP.DR.SPR PO (13:00)
[2023-04-22] MEDS: Ibuprofen 600 MG TABLET PO (13:00)
[2023-04-22 15:15] VITALS: BP 144/70; PULSE 69; RESP 18; O2SAT 94
[2023-04-22] MEDS: Acetaminophen 325 MG TABLET 975 MG PO (21:30)
[2023-04-22] MEDS: Nortriptyline HCl 25 MG CAPSULE 75 MG PO (21:32)
[2023-04-22] MEDS: Zolpidem Tartrate 5 MG TABLET PO (21:33)
[2023-04-22] MEDS: Divalproex Sodium 250 MG TABLET.DR 750 MG PO (21:33)
[2023-04-22] MEDS: Sennosides/Docusate Sodium TABLET 2 TAB PO (21:34)
[2023-04-22] MEDS: Mirtazapine 7.5 MG TABLET PO (21:35)
[2023-04-22] MEDS: Latanoprost 0.005 % Ophth Sol 2.5 ML DROPS 1 DROP EYE-BOTH (21:39)
[2023-04-22] MEDS: Artificial Tears 15 ML DROPS 1 DROP EYE-BOTH (21:39)
[2023-04-22] MEDS: Nystatin Powder 15 GM BOTTLE 1 APPL TOPICAL (21:41)
[2023-04-23] MEDS: OLANZapine 2.5 MG TABLET PO ×2 (04:11→21:21)
[2023-04-23] MEDS: hydrOXYzine HCL 25 MG TABLET PO (04:11)
[2023-04-23 06:00] VITALS: BP 154/96; PULSE 68; RESP 18; TEMP 36.1; O2SAT 94
[2023-04-23] MEDS: Propranolol HCL 20 MG TABLET PO ×3 (08:24→21:21)
[2023-04-23] MEDS: ALPRAZolam 0.25 MG TABLET PO ×3 (08:24→21:19)
[2023-04-23] MEDS: Vortioxetine Hydrobromide 5 MG TABLET PO (08:33)
[2023-04-23] MEDS: polyethylene glycoL 3350 17 GM POWD.PACK PO (08:33)
[2023-04-23] MEDS: Divalproex Sodium Sprinkles 125 MG CAP.DR.SPR PO (12:07)
[2023-04-23] MEDS: Ibuprofen 600 MG TABLET PO (16:27)
[2023-04-23 19:45] VITALS: BP 146/87; PULSE 63; RESP 18; TEMP 36.2; O2SAT 94
--- NOTE | 2023-04-23 21:06 | P.PNPSI_ITS ---
Subjective Subjective Date of Service: 04/23/23 Reason For Visit: Depression hopelessness irritability Subjective Notes: Conditional Voluntary Interim History: Pt with some periods of insomnia less labile cooperative with d/c planning Medication Compliance: Yes Mental Status Exam Mental Status Exam Patient Appearance: Well Grooomed and Appropriate Patient Orientation: Person and Situation Level of Consciousness: Awake and Appropriate Patient Behavior: Guarded and Passive Mood Description: Withdrawn and Constricted Affect Description: Calm Patient Cognition Impaired: Yes Ability to Follow Directions: Good Speech Pattern: Clear Hallucinations: None Delusions: Not Present Thought Process: Distracted and Linear Thought Content: positive for [place] and positive for Poverty of Content Judgement: Fair Diagnostics Vital Signs (24Hr): Vital Signs - 24 hr 04/23/23 06:00 04/23/23 19:45 Temperature 96.9 F 97.1 F Pulse Rate 68 63 Respiratory Rate 18 18 Blood Pressure 154/96 H 146/87 H Pulse Oximetry 94 94 Oxygen Delivery Method Room Air Room Air BMI result Body Mass Index 30.2 Labs 04/09/23 07:59 04/09/23 07:59 Imaging Radiology Impressions: ITS Impressions Chest X-Ray 10/20/22 15:45 IMPRESSION: 1. Low lung volumes with bibasilar linear disc atelectasis versus scarring. 2. No airspace consolidation or effusion. Head CT 11/08/22 12:29 IMPRESSION: No acute intracranial hemorrhage or territorial infarction. Stable chronic postoperative changes with gliosis and encephalomalacia in the right frontal and right temporal lobes. Ex vacuo dilatation of the ventricles and diffuse parenchymal volume loss. Right-sided craniotomy changes. Chest X-Ray 11/12/22 10:32 IMPRESSION: Hypoexpanded lungs with bibasilar platelike atelectasis. Brain MRI 11/12/22 13:15 IMPRESSION: 1. No demonstrated acute intracranial abnormalities. 2. Chronic encephalomalacia of the right temporal, right frontal, and left occipital lobes. Small regions of chronic encephalomalacia in the parasagittal aspects of the bilateral parietal lobes. Moderate underlying microangiopathy and generalized cerebral volume loss. Chest X-Ray 11/14/22 15:52 IMPRESSION: Low lung volumes, bibasilar subsegmental atelectasis and slight elevation of the right hemidiaphragm similar to previous exam. Modified Barium Swallow 11/21/22 15:11 IMPRESSION: Laryngeal penetration on several occasions but no laryngeal aspiration. Mild retention of solid food in the valleculae which cleared with subsequent oral administration of water or thin barium. Correlate with speech therapy results. Orbit CT 01/23/23 14:05 IMPRESSION: - No definite significant intraorbital soft tissue findings to assessment is limited on a noncontrast CT of the orbits. No retrobulbar mass lesions and no cellulitic changes appreciated. - There are large fluid levels within the left maxillary sinus and within the right frontal sinus the can be correlated for clinical signs of acute sinusitis. - A peripherally ossified structure extending from the dorsal margin of the right nasolacrimal duct into the right maxillary sinus is stable when compared to examinations dated back to 08/24/2008 favoring a benign etiology. Cervical Spine CT 02/14/23 22:15 IMPRESSION: 1. No acute intracranial abnormality. Stable postsurgical changes with right frontotemporal encephalomalacia, global volume loss, and extraocular dilatation of the right lateral ventricle. 2. No cervical spine fracture or traumatic malalignment. Head CT 02/14/23 22:15 IMPRESSION: 1. No acute intracranial abnormality. Stable postsurgical changes with right frontotemporal encephalomalacia, global volume loss, and extraocular dilatation of the right lateral ventricle. 2. No cervical spine fracture or traumatic malalignment. Hip/Pelvis X-Ray 02/14/23 22:25 IMPRESSION: Moderate degenerative changes of the right hip with loss of superolateral joint space. Similar chronic posttraumatic deformity of the right femoral neck with chronic foreshortening. Status post left total hip arthroplasty in unchanged alignment however the lack of a crosstable lateral view limits assessment for dislocation. No acute fracture or dislocation appreciated on the available views. Foot X-Ray 02/22/23 13:50 IMPRESSION: * Postsurgical changes of arthrodesis first metatarsophalangeal joint. * There is developed large osteophyte from the head of the first metatarsal protruding laterally abutting the head of the second metatarsal. This might be the source of patient's pain. * Underlying degenerative osteoarthritis. Foot X-Ray 02/23/23 14:11 IMPRESSION: Mild degenerative changes MTP, PIP and DIP joints. No visible acute fracture or dislocation seen. Medications Medications Current Medications Acetaminophen (Acetaminophen 325 Mg Tablet) 975 mg PO Q6H PRN PRN Reason: Headache/Pain Mild Scale (1-3) Last Admin: 04/22/23 21:30 Dose: 975 mg Alprazolam (Alprazolam 0.25 Mg Tablet) 0.25 mg PO TID [facility] Last Admin: 04/23/23 15:46 Dose: 0.25 mg Alprazolam (Alprazolam 0.25 Mg Tablet) 0.25 mg PO BEDTIME PRN PRN Reason: Insomnia Artificial Tears (Artificial Tears 15 Ml Drops) 1 drop EYE-BOTH Q2H PRN PRN Reason: Dry Eyes Last Admin: 04/22/23 21:39 Dose: 1 drop Bisacodyl (Bisacodyl 10 Mg Supp.Rect) 10 mg [place] DAILY PRN PRN Reason: Constipation Clotrimazole (Clotrimazole 1 % Cream 15 Gm Tube) 1 appl TOPICAL BID TAZ; Protocol Last Admin: 04/23/23 08:42 Dose: Not Given Divalproex Sodium (Divalproex Sodium 250 Mg Tablet.Dr) 750 mg PO BEDTIME TAZ Last Admin: 04/22/23 21:33 Dose: 750 mg Divalproex Sodium (Divalproex Sodium Sprinkles 125 Mg Cap.Dr.Spr) 125 mg PO DAILY@1200 TAZ Last Admin: 04/23/23 12:07 Dose: 125 mg Guaifenesin/Dextromethorphan (Guaifenesin Dm 100/10/5 Ml 5 Ml Syrup) 5 ml PO Q4H PRN PRN Reason: cough Last Admin: 03/27/23 22:10 Dose: 5 ml Hydrocortisone (Hydrocortisone 1 % Cream 28.35 Gm Tube) 1 appl TOPICAL BID PRN; Protocol PRN Reason: itchy feet Last Admin: 04/12/23 21:27 Dose: 1 appl Hydroxyzine HCl (Hydroxyzine Hcl 25 Mg Tablet) 25 mg PO Q4H PRN PRN Reason: Anxiety Last Admin: 04/23/23 04:11 Dose: 25 mg Ibuprofen (Ibuprofen 600 Mg Tablet) 600 mg PO Q6H PRN PRN Reason: Pain, Moderate(Pain Scale 4-6) Last Admin: 04/23/23 16:27 Dose: 600 mg Latanoprost (Latanoprost 0.005 % Ophth No 2.5 Ml Drops) 1 drop EYE-BOTH BEDTIME [facility] Last Admin: 04/22/23 21:39 Dose: 1 drop Lidocaine (Lidocaine 5 % Ointment 35 Gm) 1 appl TOPICAL Q6H PRN; Protocol PRN Reason: pain r foot Last Admin: 04/21/23 21:02 Dose: 1 appl Magnesium Hydroxide (Milk Of Magnesia 30 Ml Oral.Susp) 30 ml PO BID PRN PRN Reason: constipation, stomach/GI upset Last Admin: 04/06/23 21:24 Dose: 30 ml Mirtazapine (Mirtazapine 7.5 Mg Tablet) 7.5 mg PO BEDTIME TAZ Last Admin: 04/22/23 21:35 Dose: 7.5 mg Nortriptyline HCl (Nortriptyline Hcl 25 Mg Capsule) 75 mg PO BEDTIME TAZ Last Admin: 04/22/23 21:32 Dose: 75 mg Nystatin (Nystatin Powder 15 Gm Bottle) 1 appl TOPICAL BID TAZ; Protocol Last Admin: 04/23/23 08:42 Dose: Not Given Olanzapine (Olanzapine 2.5 Mg Tablet) 2.5 mg PO Q4H PRN PRN Reason: anxiety/restlessness Last Admin: 04/23/23 04:11 Dose: 2.5 mg Olanzapine (Olanzapine 2.5 Mg Tablet) 2.5 mg PO BEDTIME TAZ Last Admin: 04/22/23 21:35 Dose: 2.5 mg Ondansetron HCl (Ondansetron Odt 4 Mg Tab.Rapdis) 4 mg TRANSLINGU Q6H PRN PRN Reason: Nausea and Vomiting Last Admin: 03/20/23 09:13 Dose: 4 mg Polyethylene Glycol (Polyethylene Glycol 3350 17 Gm Powd.Pack) 17 gm PO DAILY PRN PRN Reason: Constipation Last Admin: 04/23/23 08:33 Dose: 17 gm Propranolol HCl (Propranolol Hcl 20 Mg Tablet) 20 mg PO TID TAZ; Protocol Last Admin: 04/23/23 15:45 Dose: 20 mg Senna/Docusate Sodium (Sennosides/Docusate Sodium Tablet) 2 tab PO BEDTIME TAZ Last Admin: 04/22/23 21:34 Dose: 1 tab Sodium Chloride (Sodium Chloride 0.65 % Nasal 44 Ml Sprbtl) 1 spray NOSTRIL-B Q1H PRN PRN Reason: Nasal Congestion Last Admin: 02/26/23 21:14 Dose: 1 spray Vortioxetine (Vortioxetine Hydrobromide 5 Mg Tablet) 5 mg PO DAILY TAZ Last Admin: 04/23/23 08:33 Dose: 5 mg Zolpidem Tartrate (Zolpidem Tartrate 5 Mg Tablet) 5 mg PO BEDTIME PRN PRN Reason: Insomnia Last Admin: 04/22/23 21:33 Dose: 5 mg Allergies Allergies Allergy/AdvReac Type Severity Reaction Status Date / Time fentanyl [FENTANYL] Allergy Intermediate unknown Verified 04/08/22 07:00 Assessment & Plan Assessment & Plan (1) Major depressive disorder, recurrent severe without psychotic features: Status: Acute Code(s): F33.2 - Major depressive disorder, recurrent severe without psychotic features (2) Cognitive and neurobehavioral dysfunction following brain injury: Status: Acute Code(s): G31.89 - Other specified degenerative diseases of nervous system; F09 - Unspecified mental disorder due to known physiological condition; S06.9X9S - Unspecified intracranial injury with loss of consciousness of unspecified duration, sequela (3) Personality disorder in adult: Status: Acute Code(s): F60.9 - Personality disorder, unspecified Plan ALPRAZOLAM 0.25 B.I.D. 0.5 BEDTIME OLANZAPINE ALSO 3 TIMES A DAY CONTINUE DEPAKOTE START PROPRANOLOL 10 T.I.D. THE PATIENT CONFRONTED REGARDING NEGATIVE TOXIC BEHAVIOR DIFFICULTY COPING AND NEGATIVE COMPLICATIONS TO HIS LIFE IF C ONTINUE VERBALLY AGGRESSIVE AND TOXIC BEHAVIOR WITH OTHERS DEVALUATION ENCOURAGE REFLECTION STRESS MANAGEMENT COPING STRATEGIES 03/07 continue same treatment 03/08 continue same treatment 03/09 continue same treatment 03/10/23 Lower alprazolam .125 mg bid hold afternoon olanzapine secondary to slurring oversedation cont propranolol 03/11/23 Pt doing better less sedated struggles to maintain pos attitude 03/13 continue tx. 03/14: stable presentation, no change in mgmt. 03/15: appears sedated. no change in mgmt today. to F/U with attending tomorrow re meds for anxiety. 03/16 continue tx. 03/17 continue tx. 03/18 continue tx. 03/19 continue tx. 03/22 continue tx. 03/23 continue tx. 03/24/2023 Continue treatment plan discharge planning 03/25/2023 Continue plan of care 03/26/2023 Continued discharge planning needs much reassurance 03/27 continue tx. 03/28: Continue treatment plan. 03/29: Continue current treatment plan 03/30 continue tx. 03/31 continue tx. 04/02 no changes in treatment 04/03/2023 Patient more reactive belligerent kicked out at another person and was reactive with staff and aggressive. Seems much more triggered by stimulation difficulty reflecting discussed with patient increasing olanzapine alprazolam for behavioral control 04/07/23 Cont depakote olanzpine alprazolam encourage strategies to deal with triggers d/c planning 04/08/2023 Depakote increased by 125 mg nortriptyline increased continue discharge planning CK CHEM UA CBC 04/09/23 Patient has become increasingly depressed olanzapine Depakote could not effective for dysphoria irritability case reviewed dr nelson consider ect mirtazapine 04/10 Add Ambien 5 mg at hs 04/11: Continue current treatment plan. 04/12: Continue current treatment plan. 04/13: Continue current plan of care. 04/14 cont plan of care 04/15/23 Start trintellix 5mg daily 04/17/23 Continue treatment plan patient was seen 04/16 and 04/17 Mood generally improved less labile future oriented feels better able to try keep his future focus not current triggers in the inpatient setting nortriptyline has been increased 75 mg Trintellix 5 mg 04/19 keep same treatment 04/20/2023 Lower olanzapine 2.5 at bedtime continue p.r.n. 2.5 hopefully will help with fee lings of sedation monitor mood 04/21 continue tx. 04/22 continue tx. 04/23/23 inc mirtazapine 15 hs alp 0.25 prn Reason for continued inpatient stay Substantial Risk for: harm to self and rapid decompensation Time Spent With Patient Time: Total time managing care of this patient today ____ minutes.
[2023-04-23] MEDS: Nortriptyline HCl 25 MG CAPSULE 75 MG PO (21:19)
[2023-04-23] MEDS: Zolpidem Tartrate 5 MG TABLET PO (21:19)
[2023-04-23] MEDS: Mirtazapine 7.5 MG TABLET PO ×2 (21:20→21:25)
[2023-04-23] MEDS: Divalproex Sodium 250 MG TABLET.DR 750 MG PO (21:20)
[2023-04-23] MEDS: Acetaminophen 325 MG TABLET 975 MG PO (21:20)
[2023-04-23] MEDS: Sennosides/Docusate Sodium TABLET 2 TAB PO (21:21)
[2023-04-23] MEDS: Nystatin Powder 15 GM BOTTLE 1 APPL TOPICAL (21:31)
[2023-04-23] MEDS: Latanoprost 0.005 % Ophth Sol 2.5 ML DROPS 1 DROP EYE-BOTH (21:31)
[2023-04-23] MEDS: Lidocaine 5 % Ointment 35 GM 1 APPL TOPICAL (21:34)
[2023-04-24 08:27] VITALS: BP 134/69; PULSE 76; RESP 16; TEMP 36.1; O2SAT 97
[2023-04-24] MEDS: polyethylene glycoL 3350 17 GM POWD.PACK PO (08:52)
[2023-04-24] MEDS: ALPRAZolam 0.25 MG TABLET PO ×4 (08:53→21:09)
[2023-04-24] MEDS: Propranolol HCL 20 MG TABLET PO ×3 (08:53→21:10)
[2023-04-24] MEDS: Vortioxetine Hydrobromide 5 MG TABLET PO (08:53)
[2023-04-24] MEDS: Ibuprofen 600 MG TABLET PO (08:53)
[2023-04-24] MEDS: Artificial Tears 15 ML DROPS 1 DROP EYE-BOTH ×2 (08:54→21:14)
[2023-04-24] MEDS: OLANZapine 2.5 MG TABLET PO ×2 (10:19→21:11)
[2023-04-24] MEDS: Divalproex Sodium Sprinkles 125 MG CAP.DR.SPR PO (12:19)
[2023-04-24 14:21] VITALS: BP 121/67; PULSE 65
[2023-04-24 18:00] VITALS: BP 121/52; PULSE 66; RESP 16; TEMP 36.2; O2SAT 97
[2023-04-24] MEDS: Acetaminophen 325 MG TABLET 975 MG PO (21:04)
[2023-04-24] MEDS: Divalproex Sodium 250 MG TABLET.DR 750 MG PO (21:06)
[2023-04-24] MEDS: Nortriptyline HCl 25 MG CAPSULE 75 MG PO (21:07)
[2023-04-24] MEDS: Sennosides/Docusate Sodium TABLET 2 TAB PO (21:09)
[2023-04-24] MEDS: Zolpidem Tartrate 5 MG TABLET PO (21:10)
[2023-04-24] MEDS: Mirtazapine 7.5 MG TABLET PO (21:11)
[2023-04-24] MEDS: Latanoprost 0.005 % Ophth Sol 2.5 ML DROPS 1 DROP EYE-BOTH (21:14)
[2023-04-24] MEDS: Nystatin Powder 15 GM BOTTLE 1 APPL TOPICAL (21:18)
[2023-04-24] MEDS: Lidocaine 5 % Ointment 35 GM 1 APPL TOPICAL (21:19)
--- NOTE | 2023-04-24 21:33 | P.PNPSI_ITS ---
Subjective Subjective Date of Service: 04/24/23 Reason For Visit: Depression hopelessness irritability Subjective Notes: Conditional Voluntary Medication Compliance: Yes Attending Groups: Yes Mental Status Exam Mental Status Exam Patient Appearance: Well Grooomed and Appropriate Patient Orientation: Person, Place and Situation Level of Consciousness: Awake and Appropriate Patient Behavior: Guarded and Passive Mood Description: Withdrawn and Constricted Affect Description: Calm Patient Cognition Impaired: Yes Ability to Follow Directions: Good Speech Pattern: Clear Hallucinations: None Delusions: Not Present Thought Process: Distracted and Linear Thought Content: positive for [place] and positive for Poverty of Content Judgement: Fair Diagnostics Vital Signs (24Hr): Vital Signs - 24 hr 04/24/23 08:27 04/24/23 14:21 Temperature 97.0 F Pulse Rate 76 65 Respiratory Rate 16 Blood Pressure 134/69 121/67 Pulse Oximetry 97 Oxygen Delivery Method Room Air BMI result Body Mass Index 30.2 Labs 04/09/23 07:59 04/09/23 07:59 Imaging Radiology Impressions: ITS Impressions Chest X-Ray 10/20/22 15:45 IMPRESSION: 1. Low lung volumes with bibasilar linear disc atelectasis versus scarring. 2. No airspace consolidation or effusion. Head CT 11/08/22 12:29 IMPRESSION: No acute intracranial hemorrhage or territorial infarction. Stable chronic postoperative changes with gliosis and encephalomalacia in the right frontal and right temporal lobes. Ex vacuo dilatation of the ventricles and diffuse parenchymal volume loss. Right-sided craniotomy changes. Chest X-Ray 11/12/22 10:32 IMPRESSION: Hypoexpanded lungs with bibasilar platelike atelectasis. Brain MRI 11/12/22 13:15 IMPRESSION: 1. No demonstrated acute intracranial abnormalities. 2. Chronic encephalomalacia of the right temporal, right frontal, and left occipital lobes. Small regions of chronic encephalomalacia in the parasagittal aspects of the bilateral parietal lobes. Moderate underlying microangiopathy and generalized cerebral volume loss. Chest X-Ray 11/14/22 15:52 IMPRESSION: Low lung volumes, bibasilar subsegmental atelectasis and slight elevation of the right hemidiaphragm similar to previous exam. Modified Barium Swallow 11/21/22 15:11 IMPRESSION: Laryngeal penetration on several occasions but no laryngeal aspiration. Mild retention of solid food in the valleculae which cleared with subsequent oral administration of water or thin barium. Correlate with speech therapy results. Orbit CT 01/23/23 14:05 IMPRESSION: - No definite significant intraorbital soft tissue findings to assessment is limited on a noncontrast CT of the orbits. No retrobulbar mass lesions and no cellulitic changes appreciated. - There are large fluid levels within the left maxillary sinus and within the right frontal sinus the can be correlated for clinical signs of acute sinusitis. - A peripherally ossified structure extending from the dorsal margin of the right nasolacrimal duct into the right maxillary sinus is stable when compared to examinations dated back to 08/24/2008 favoring a benign etiology. Cervical Spine CT 02/14/23 22:15 IMPRESSION: 1. No acute intracranial abnormality. Stable postsurgical changes with right frontotemporal encephalomalacia, global volume loss, and extraocular dilatation of the right lateral ventricle. 2. No cervical spine fracture or traumatic malalignment. Head CT 02/14/23 22:15 IMPRESSION: 1. No acute intracranial abnormality. Stable postsurgical changes with right frontotemporal encephalomalacia, global volume loss, and extraocular dilatation of the right lateral ventricle. 2. No cervical spine fracture or traumatic malalignment. Hip/Pelvis X-Ray 02/14/23 22:25 IMPRESSION: Moderate degenerative changes of the right hip with loss of superolateral joint space. Similar chronic posttraumatic deformity of the right femoral neck with chronic foreshortening. Status post left total hip arthroplasty in unchanged alignment however the lack of a crosstable lateral view limits assessment for dislocation. No acute fracture or dislocation appreciated on the available views. Foot X-Ray 02/22/23 13:50 IMPRESSION: * Postsurgical changes of arthrodesis first metatarsophalangeal joint. * There is developed large osteophyte from the head of the first metatarsal protruding laterally abutting the head of the second metatarsal. This might be the source of patient's pain. * Underlying degenerative osteoarthritis. Foot X-Ray 02/23/23 14:11 IMPRESSION: Mild degenerative changes MTP, PIP and DIP joints. No visible acute fracture or dislocation seen. Medications Medications Current Medications Acetaminophen (Acetaminophen 325 Mg Tablet) 975 mg PO Q6H PRN PRN Reason: Headache/Pain Mild Scale (1-3) Last Admin: 04/24/23 21:04 Dose: 975 mg Alprazolam (Alprazolam 0.25 Mg Tablet) 0.25 mg PO TID [facility] Last Admin: 04/24/23 21:09 Dose: 0.25 mg Alprazolam (Alprazolam 0.25 Mg Tablet) 0.25 mg PO BEDTIME PRN PRN Reason: Insomnia Last Admin: 04/24/23 21:09 Dose: 0.25 mg Artificial Tears (Artificial Tears 15 Ml Drops) 1 drop EYE-BOTH Q2H PRN PRN Reason: Dry Eyes Last Admin: 04/24/23 21:14 Dose: 1 drop Bisacodyl (Bisacodyl 10 Mg Supp.Rect) 10 mg [place] DAILY PRN PRN Reason: Constipation Clotrimazole (Clotrimazole 1 % Cream 15 Gm Tube) 1 appl TOPICAL BID [facility]; Protocol Last Admin: 04/24/23 08:59 Dose: Not Given Divalproex Sodium (Divalproex Sodium 250 Mg Tablet.Dr) 750 mg PO BEDTIME TAZ Last Admin: 04/24/23 21:06 Dose: 750 mg Divalproex Sodium (Divalproex Sodium Sprinkles 125 Mg Cap.Dr.Spr) 125 mg PO DAILY@1200 TAZ Last Admin: 04/24/23 12:19 Dose: 125 mg Guaifenesin/Dextromethorphan (Guaifenesin Dm 100/10/5 Ml 5 Ml Syrup) 5 ml PO Q4H PRN PRN Reason: cough Last Admin: 03/27/23 22:10 Dose: 5 ml Hydrocortisone (Hydrocortisone 1 % Cream 28.35 Gm Tube) 1 appl TOPICAL BID PRN; Protocol PRN Reason: itchy feet Last Admin: 04/12/23 21:27 Dose: 1 appl Hydroxyzine HCl (Hydroxyzine Hcl 25 Mg Tablet) 25 mg PO Q4H PRN PRN Reason: Anxiety Last Admin: 04/23/23 04:11 Dose: 25 mg Ibuprofen (Ibuprofen 600 Mg Tablet) 600 mg PO Q6H PRN PRN Reason: Pain, Moderate(Pain Scale 4-6) Last Admin: 04/24/23 08:53 Dose: 600 mg Latanoprost (Latanoprost 0.005 % Ophth No 2.5 Ml Drops) 1 drop EYE-BOTH BEDTIME [facility] Last Admin: 04/24/23 21:14 Dose: 1 drop Lidocaine (Lidocaine 5 % Ointment 35 Gm) 1 appl TOPICAL Q6H PRN; Protocol PRN Reason: pain r foot Last Admin: 04/24/23 21:19 Dose: 1 appl Magnesium Hydroxide (Milk Of Magnesia 30 Ml Oral.Susp) 30 ml PO BID PRN PRN Reason: constipation, stomach/GI upset Last Admin: 04/06/23 21:24 Dose: 30 ml Mirtazapine (Mirtazapine 7.5 Mg Tablet) 7.5 mg PO BEDTIME TAZ Last Admin: 04/24/23 21:11 Dose: 7.5 mg Nortriptyline HCl (Nortriptyline Hcl 25 Mg Capsule) 75 mg PO BEDTIME TAZ Last Admin: 04/24/23 21:07 Dose: 75 mg Nystatin (Nystatin Powder 15 Gm Bottle) 1 appl TOPICAL BID TAZ; Protocol Last Admin: 04/24/23 21:18 Dose: 1 appl Olanzapine (Olanzapine 2.5 Mg Tablet) 2.5 mg PO Q4H PRN PRN Reason: anxiety/restlessness Last Admin: 04/24/23 10:19 Dose: 2.5 mg Olanzapine (Olanzapine 2.5 Mg Tablet) 2.5 mg PO BEDTIME TAZ Last Admin: 04/24/23 21:11 Dose: 2.5 mg Ondansetron HCl (Ondansetron Odt 4 Mg Tab.Rapdis) 4 mg TRANSLINGU Q6H PRN PRN Reason: Nausea and Vomiting Last Admin: 03/20/23 09:13 Dose: 4 mg Polyethylene Glycol (Polyethylene Glycol 3350 17 Gm Powd.Pack) 17 gm PO DAILY PRN PRN Reason: Constipation Last Admin: 04/24/23 08:52 Dose: 17 gm Propranolol HCl (Propranolol Hcl 20 Mg Tablet) 20 mg PO TID TAZ; Protocol Last Admin: 04/24/23 21:10 Dose: 20 mg Senna/Docusate Sodium (Sennosides/Docusate Sodium Tablet) 2 tab PO BEDTIME TAZ Last Admin: 04/24/23 21:09 Dose: 1 tab Sodium Chloride (Sodium Chloride 0.65 % Nasal 44 Ml Sprbtl) 1 spray NOSTRIL-B Q1H PRN PRN Reason: Nasal Congestion Last Admin: 02/26/23 21:14 Dose: 1 spray Vortioxetine (Vortioxetine Hydrobromide 5 Mg Tablet) 5 mg PO DAILY TAZ Last Admin: 04/24/23 08:53 Dose: 5 mg Zolpidem Tartrate (Zolpidem Tartrate 5 Mg Tablet) 5 mg PO BEDTIME PRN PRN Reason: Insomnia Last Admin: 04/24/23 21:10 Dose: 5 mg Allergies Allergies Allergy/AdvReac Type Severity Reaction Status Date / Time fentanyl [FENTANYL] Allergy Intermediate unknown Verified 04/08/22 07:00 Assessment & Plan Assessment & Plan (1) Major depressive disorder, recurrent severe without psychotic features: Status: Acute Code(s): F33.2 - Major depressive disorder, recurrent severe without psychotic features (2) Cognitive and neurobehavioral dysfunction following brain injury: Status: Acute Code(s): G31.89 - Other specified degenerative diseases of nervous system; F09 - Unspecified mental disorder due to known physiological condition; S06.9X9S - Unspecified intracranial injury with loss of consciousness of unspecified duration, sequela (3) Personality disorder in adult: Status: Acute Code(s): F60.9 - Personality disorder, unspecified Plan ALPRAZOLAM 0.25 B.I.D. 0.5 BEDTIME OLANZAPINE ALSO 3 TIMES A DAY CONTINUE DEPAKOTE START PROPRANOLOL 10 T.I.D. THE PATIENT CONFRONTED REGARDING NEGATIVE TOXIC BEHAVIOR DIFFICULTY COPING AND NEGATIVE COMPLICATIONS TO HIS LIFE IF CONTINUE VERBALLY AGGRESSIVE AND TOXIC BEHAVIOR WITH OTHERS DEVALUATION ENCOURAGE REFLECTION STRESS MANAGEMENT COPING STRATEGIES 03/07 continue same treatment 03/08 continue same treatment 03/09 continue same treatment 03/10/23 Lower alprazolam .125 mg bid hold afternoon olanzapine secondary to slurring oversedation cont propranolol 03/11/23 Pt doing better less sedated struggles to maintain pos attitude 03/13 continue tx. 03/14: stable presentation, no change in mgmt. 03/15: appears sedated. no change in mgmt today. to F/U with attending tomorrow re meds for anxiety. 03/16 continue tx. 03/17 continue tx. 03/18 continue tx. 03/19 continue tx. 03/22 continue tx. 03/23 continue tx. 03/24/2023 Continue treatment plan discharge planning 03/25/2023 Continue plan of care 03/26/2023 Continued discharge planning needs much reassurance 03/27 continue tx. 03/28: Continue treatment plan. 03/29: Continue current treatment plan 03/30 continue tx. 03/31 continue tx. 04/02 no changes in treatment 04/03/2023 Patient more reactive belligerent kicked out at another person and was reactive with staff and aggressive. Seems much more triggered by stimulation difficulty reflecting discussed with patient increasing olanzapine alprazolam for behavioral control 04/07/23 Cont depakote olanzpine alprazolam encourage strategies to deal with triggers d/c planning 04/08/2023 Depakote increased by 125 mg nortriptyline increased continue discharge planning CK CHEM UA CBC 04/09/23 Patient has become increasingly depressed olanzapine Depakote could not effective for dysphoria irritability case reviewed dr nelson consider ect mirtazapine 04/10 Add Ambien 5 mg at hs 04/11: Continue current treatment plan. 04/12: Continue current treatment plan. 04/13: Continue current plan of care. 04/14 cont plan of care 04/15/23 Start trintellix 5mg daily 04/17/23 Continue treatment plan patient was seen 04/16 and 04/17 Mood generally improved less labile future oriented feels better able to try keep his future focus not current triggers in the inpatient setting nortriptyline has been increased 75 mg Trintellix 5 mg 04/19 keep same treatment 04/20/2023 Lower olanzapine 2.5 at bedtime continue p.r.n. 2.5 hopefully will help with feelings of sedation monitor mood 04/21 continue tx. 04/22 continue tx. 04/23/23 inc mirtazapine 15 hs alp 0.25 prn 04/24/23 inc hs alprazolam 0.5 hs Reason for continued inpatient stay Substantial Risk for: inability to function and rapid decompensation Time Spent With Patient Time: Total time managing care of this patient today ____ minutes.
[2023-04-25] MEDS: Ibuprofen 600 MG TABLET PO (06:10)
[2023-04-25 07:50] VITALS: BP 141/72; PULSE 68; RESP 18; TEMP 36.6; O2SAT 97
[2023-04-25] MEDS: Vortioxetine Hydrobromide 5 MG TABLET PO (08:06)
[2023-04-25] MEDS: ALPRAZolam 0.25 MG TABLET PO ×2 (08:06→14:56)
[2023-04-25] MEDS: Propranolol HCL 20 MG TABLET PO ×3 (08:06→22:38)
[2023-04-25] MEDS: Nystatin Powder 15 GM BOTTLE 1 APPL TOPICAL ×2 (08:56→22:40)
[2023-04-25] MEDS: Clotrimazole 1 % Cream 15 GM TUBE 1 APPL TOPICAL ×2 (08:56→22:48)
[2023-04-25] MEDS: Divalproex Sodium Sprinkles 125 MG CAP.DR.SPR PO (11:49)
--- NOTE | 2023-04-25 17:07 | P.PNPSI_ITS ---
Subjective Subjective Date of Service: 04/25/23 Reason For Visit: Depression hopelessness irritability Subjective Notes: Conditional Voluntary Interim History: Pt reports some difficulty sleeping as he did not have trazodone last night. He is also on ambien. Pt reports feeling overall well but increasingly frustrated as he wants to transition to soon. He denies SI/HI. No psychosis. Per nursing, no behavioral concerns. fair sleep. Medication Compliance: Yes Review of Systems Review of Systems unremarkable Yes all other systems are reviewed and are negative, Unobtainable due to mental condition and Unobtainable due to mental status Mental Status Exam Mental Status Exam Narrative: Patient Appearance: Well Grooomed and Appropriate Patient Orientation: Person, Place and Situation Level of Consciousness: Awake and Appropriate Patient Behavior: Guarded and Passive Behavior Comments: Mood Description: Withdrawn and Constricted Affect Description: Calm Patient Cognition Impaired: Yes Ability to Follow Directions: Good Speech Pattern: Clear Memory Description: Intact Diagnostics Vital Signs (24Hr): Vital Signs - 24 hr 04/24/23 18:00 04/25/23 07:50 Temperature 97.2 F 97.9 F Pulse Rate 66 68 Respiratory Rate 16 18 Blood Pressure 121/52 L 141/72 H Pulse Oximetry 97 97 Oxygen Delivery Method Room Air Room Air BMI result Body Mass Index 30.2 Labs 04/09/23 07:59 04/09/23 07:59 Imaging Radiology Impressions: ITS Impressions Chest X-Ray 10/20/22 15:45 IMPRESSION: 1. Low lung volumes with bibasilar linear disc atelectasis versus scarring. 2. No airspace consolidation or effusion. Head CT 11/08/22 12:29 IMPRESSION: No acute intracranial hemorrhage or territorial infarction. Stable chronic postoperative changes with gliosis and encephalomalacia in the right frontal and right temporal lobes. Ex vacuo dilatation of the ventricles and diffuse parenchymal volume loss. Right-sided craniotomy changes. Chest X-Ray 11/12/22 10:32 IMPRESSION: Hypoexpanded lungs with bibasilar platelike atelectasis. Brain MRI 11/12/22 13:15 IMPRESSION: 1. No demonstrated acute intracranial abnormalities. 2. Chronic encephalomalacia of the right temporal, right frontal, and left occipital lobes. Small regions of chronic encephalomalacia in the parasagittal aspects of the bilateral parietal lobes. Moderate underlying microangiopathy and generalized cerebral volume loss. Chest X-Ray 11/14/22 15:52 IMPRESSION: Low lung volumes, bibasilar subsegmental atelectasis and slight elevation of the right hemidiaphragm similar to previous exam. Modified Barium Swallow 11/21/22 15:11 IMPRESSION: Laryngeal penetration on several occasions but no laryngeal aspiration. Mild retention of solid food in the valleculae which cleared with subsequent oral administration of water or thin barium. Correlate with speech therapy results. Orbit CT 01/23/23 14:05 IMPRESSION: - No definite significant intraorbital soft tissue findings to assessment is limited on a noncontrast CT of the orbits. No retrobulbar mass lesions and no cellulitic changes appreciated. - There are large fluid levels within the left maxillary sinus and within the right frontal sinus the can be correlated for clinical signs of acute sinusitis. - A peripherally ossified structure extending from the dorsal margin of the right nasolacrimal duct into the right maxillary sinus is stable when compared to examinations dated back to 08/24/2008 favoring a benign etiology. Cervical Spine CT 02/14/23 22:15 IMPRESSION: 1. No acute intracranial abnormality. Stable postsurgical changes with right frontotemporal encephalomalacia, global volume loss, and extraocular dilatation of the right lateral ventricle. 2. No cervical spine fracture or traumatic malalignment. Head CT 02/14/23 22:15 IMPRESSION: 1. No acute intracranial abnormality. Stable postsurgical changes with right frontotemporal encephalomalacia, global volume loss, and extraocular dilatation of the right lateral ventricle. 2. No cervical spine fracture or traumatic malalignment. Hip/Pelvis X-Ray 02/14/23 22:25 IMPRESSION: Moderate degenerative changes of the right hip with loss of superolateral joint space. Similar chronic posttraumatic deformity of the right femoral neck with chronic foreshortening. Status post left total hip arthroplasty in unchanged alignment however the lack of a crosstable lateral view limits assessment for dislocation. No acute fracture or dislocation appreciated on the available views. Foot X-Ray 02/22/23 13:50 IMPRESSION: * Postsurgical changes of arthrodesis first metatarsophalangeal joint. * There is developed large osteophyte from the head of the first metatarsal protruding laterally abutting the head of the second metatarsal. This might be the source of patient's pain. * Underlying degenerative osteoarthritis. Foot X-Ray 02/23/23 14:11 IMPRESSION: Mild degenerative changes MTP, PIP and DIP joints. No visible acute fracture or dislocation seen. Medications Medications Current Medications Acetaminophen (Acetaminophen 325 Mg Tablet) 975 mg PO Q6H PRN PRN Reason: Headache/Pain Mild Scale (1-3) Last Admin: 04/24/23 21:04 Dose: 975 mg Alprazolam (Alprazolam 0.5 Mg Tablet) 0.5 mg PO BEDTIME TAZ Alprazolam (Alprazolam 0.25 Mg Tablet) 0.25 mg PO BID@0830,1430 TAZ Last Admin: 04/25/23 14:56 Dose: 0.25 mg Artificial Tears (Artificial Tears 15 Ml Drops) 1 drop EYE-BOTH Q2H PRN PRN Reason: Dry Eyes Last Admin: 04/24/23 21:14 Dose: 1 drop Bisacodyl (Bisacodyl 10 Mg Supp.Rect) 10 mg [place] DAILY PRN PRN Reason: Constipation Clotrimazole (Clotrimazole 1 % Cream 15 Gm Tube) 1 appl TOPICAL BID TAZ; Protocol Last Admin: 04/25/23 08:56 Dose: 1 appl Divalproex Sodium (Divalproex Sodium 250 Mg Tablet.Dr) 750 mg PO BEDTIME TAZ Last Admin: 04/24/23 21:06 Dose: 750 mg Divalproex Sodium (Divalproex Sodium Sprinkles 125 Mg Cap.Dr.Spr) 125 mg PO DAILY@1200 TAZ Last Admin: 04/25/23 11:49 Dose: 125 mg Guaifenesin/Dextromethorphan (Guaifenesin Dm 100/10/5 Ml 5 Ml Syrup) 5 ml PO Q 4H PRN PRN Reason: cough Last Admin: 03/27/23 22:10 Dose: 5 ml Hydrocortisone (Hydrocortisone 1 % Cream 28.35 Gm Tube) 1 appl TOPICAL BID PRN; Protocol PRN Reason: itchy feet Last Admin: 04/12/23 21:27 Dose: 1 appl Hydroxyzine HCl (Hydroxyzine Hcl 25 Mg Tablet) 25 mg PO Q4H PRN PRN Reason: Anxiety Last Admin: 04/23/23 04:11 Dose: 25 mg Ibuprofen (Ibuprofen 600 Mg Tablet) 600 mg PO Q6H PRN PRN Reason: Pain, Moderate(Pain Scale 4-6) Last Admin: 04/25/23 06:10 Dose: 600 mg Latanoprost (Latanoprost 0.005 % Ophth No 2.5 Ml Drops) 1 drop EYE-BOTH BEDTIME TAZ Last Admin: 04/24/23 21:14 Dose: 1 drop Lidocaine (Lidocaine 5 % Ointment 35 Gm) 1 appl TOPICAL Q6H PRN; Protocol PRN Reason: pain r foot Last Admin: 04/24/23 21:19 Dose: 1 appl Magnesium Hydroxide (Milk Of Magnesia 30 Ml Oral.Susp) 30 ml PO BID PRN PRN Reason: constipation, stomach/GI upset Last Admin: 04/06/23 21:24 Dose: 30 ml Mirtazapine (Mirtazapine 7.5 Mg Tablet) 7.5 mg PO BEDTIME TAZ Last Admin: 04/24/23 21:11 Dose: 7.5 mg Nortriptyline HCl (Nortriptyline Hcl 25 Mg Capsule) 75 mg PO BEDTIME TAZ Last Admin: 04/24/23 21:07 Dose: 75 mg Nystatin (Nystatin Powder 15 Gm Bottle) 1 appl TOPICAL BID TAZ; Protocol Last Admin: 04/25/23 08:56 Dose: 1 appl Olanzapine (Olanzapine 2.5 Mg Tablet) 2.5 mg PO Q4H PRN PRN Reason: anxiety/restlessness Last Admin: 04/24/23 10:19 Dose: 2.5 mg Olanzapine (Olanzapine 2.5 Mg Tablet) 2.5 mg PO BEDTIME TAZ Last Admin: 04/24/23 21:11 Dose: 2.5 mg Ondansetron HCl (Ondansetron Odt 4 Mg Tab.Rapdis) 4 mg TRANSLINGU Q6H PRN PRN Reason: Nausea and Vomiting Last Admin: 03/20/23 09:13 Dose: 4 mg Polyethylene Glycol (Polyethylene Glycol 3350 17 Gm Powd.Pack) 17 gm PO DAILY PRN PRN Reason: Constipation Last Admin: 04/24/23 08:52 Dose: 17 gm Propranolol HCl (Propranolol Hcl 20 Mg Tablet) 20 mg PO TID TAZ; Protocol Last Admin: 04/25/23 14:56 Dose: 20 mg Senna/Docusate Sodium (Sennosides/Docusate Sodium Tablet) 2 tab PO BEDTIME TAZ Last Admin: 04/24/23 21:09 Dose: 1 tab Sodium Chloride (Sodium Chloride 0.65 % Nasal 44 Ml Sprbtl) 1 spray NOSTRIL-B Q1H PRN PRN Reason: Nasal Congestion Last Admin: 02/26/23 21:14 Dose: 1 spray Vortioxetine (Vortioxetine Hydrobromide 5 Mg Tablet) 5 mg PO DAILY TAZ Last Admin: 04/25/23 08:06 Dose: 5 mg Zolpidem Tartrate (Zolpidem Tartrate 5 Mg Tablet) 5 mg PO BEDTIME PRN PRN Reason: Insomnia Last Admin: 04/24/23 21:10 Dose: 5 mg Allergies Allergies Allergy/AdvReac Type Severity Reaction Status Date / Time fentanyl [FENTANYL] Allergy Intermediate unknown Verified 04/08/22 07:00 Assessment & Plan Assessment & Plan (1) Major depressive disorder, recurrent severe without psychotic features: Status: Acute Code(s): F33.2 - Major depressive disorder, recurrent severe without psychotic features (2) Cognitive and neurobehavioral dysfunction following brain injury: Status: Acute Code(s): G31.89 - Other specified degenerative diseases of nervous system; F09 - Unspecified mental disorder due to known physiological condition; S06.9X9S - Unspecified intracranial injury with loss of consciousness of unspecified duration, sequela (3) Personality disorder in adult: Status: Acute Code(s): F60.9 - Personality disorder, unspecified Plan ALPRAZOLAM 0.25 B.I.D. 0.5 BEDTIME OLANZAPINE ALSO 3 TIMES A DAY CONTINUE DEPAKOTE START PROPRANOLOL 10 T.I.D. THE PATIENT CONFRONTED REGARDING NEGATIVE TOXIC BEHAVIOR DIFFICULTY COPING AND NEGATIVE COMPLICATIONS TO HIS LIFE IF CONTINUE VERBALLY AGGRESSIVE AND TOXIC BEHAVIOR WITH OTHERS DEVALUATION ENCOURAGE REFLECTION STRESS MANAGEMENT COPING STRATEGIES 03/07 continue same treatment 03/08 continue same treatment 03/09 continue same treatment 03/10/23 Lower alprazolam .125 mg bid hold afternoon olanzapine secondary to slurring oversedation cont propranolol 03/11/23 Pt doing better less sedated struggles to maintain pos attitude 03/13 continue tx. 03/14: stable presentation, no change in mgmt. 03/15: appears sedated. no change in mgmt today. to F/U with attending tomorrow re meds for anxiety. 03/16 continue tx. 03/17 continue tx. 03/18 continue tx. 03/19 continue tx. 03/22 continue tx. 03/23 continue tx. 03/24/2023 Continue treatment plan discharge planning 03/25/2023 Continue plan of care 03/26/2023 Continued discharge planning needs much reassurance 03/27 continue tx. 03/28: Continue treatment plan. 03/29: Continue current treatment plan 03/30 continue tx. 03/31 continue tx. 04/02 no changes in treatment 04/03/2023 Patient more reactive belligerent kicked out at another person and was reactive with staff and aggressive. Seems much more triggered by stimulation difficulty reflecting discussed with patient increasing olanzapine alprazolam for behavioral control 04/07/23 Cont depakote olanzpine alprazolam encourage strategies to deal with triggers d/c planning 04/08/2023 Depakote increased by 125 mg nortriptyline increased continue discharge planning CK CHEM UA CBC 04/09/23 Patient has become increasingly depressed olanzapine Depakote could not effective for dysphoria irritability case reviewed dr nelson consider ect mirtazapine 04/10 Add Ambien 5 mg at hs 04/11: Continue current treatment plan. 04/12: Continue current treatment plan. 04/13: Continue current plan of care. 04/14 cont plan of care 04/15/23 Start trintellix 5mg daily 04/17/23 Continue treatment plan patient was seen 04/16 and 04/17 Mood generally improved less labile future oriented feels better able to try keep his future focus not current triggers in the inpatient setting nortriptyline has been increased 75 mg Trintellix 5 mg 04/19 keep same treatment 04/20/2023 Lower olanzapine 2.5 at bedtime continue p.r.n. 2.5 hopefully will help with feelings of sedation monitor mood 04/21 continue tx. 04/22 continue tx. 04/23/23 inc mirtazapine 15 hs alp 0.25 prn 04/24/23 inc hs alprazolam 0.5 hs 04/25 continue tx. Reason for continued inpatient stay Substantial Risk for: inability to function Time Spent With Patient Time: Total time managing care of this patient today ____ minutes.
[2023-04-25 18:00] VITALS: BP 156/77; PULSE 66; RESP 16; TEMP 35.9; O2SAT 96
[2023-04-25] MEDS: Sennosides/Docusate Sodium TABLET 2 TAB PO (22:32)
[2023-04-25] MEDS: Nortriptyline HCl 25 MG CAPSULE 75 MG PO (22:36)
[2023-04-25] MEDS: ALPRAZolam 0.5 MG TABLET PO (22:36)
[2023-04-25] MEDS: OLANZapine 2.5 MG TABLET PO (22:37)
[2023-04-25] MEDS: Divalproex Sodium 250 MG TABLET.DR 750 MG PO (22:37)
[2023-04-25] MEDS: traZODone HCL 100 MG TABLET 200 MG PO (22:44)
[2023-04-25] MEDS: Zolpidem Tartrate 5 MG TABLET PO (22:46)
[2023-04-25] MEDS: Latanoprost 0.005 % Ophth Sol 2.5 ML DROPS 1 DROP EYE-BOTH (22:48)
[2023-04-25] MEDS: Artificial Tears 15 ML DROPS 1 DROP EYE-BOTH (22:48)
[2023-04-25] MEDS: Lidocaine 5 % Ointment 35 GM 1 APPL TOPICAL (22:48)
[2023-04-26 08:00] VITALS: BP 135/74; PULSE 71; RESP 18; TEMP 36.6; O2SAT 95
[2023-04-26] MEDS: Propranolol HCL 20 MG TABLET PO ×3 (08:05→20:39)
[2023-04-26] MEDS: Vortioxetine Hydrobromide 5 MG TABLET PO (08:05)
[2023-04-26] MEDS: ALPRAZolam 0.25 MG TABLET PO ×2 (08:05→14:39)
[2023-04-26] MEDS: Clotrimazole 1 % Cream 15 GM TUBE 1 APPL TOPICAL ×2 (08:36→20:47)
[2023-04-26] MEDS: Divalproex Sodium Sprinkles 125 MG CAP.DR.SPR PO (14:39)
[2023-04-26 18:00] VITALS: BP 119/62; PULSE 80; RESP 16; TEMP 36.4; O2SAT 93
--- NOTE | 2023-04-26 18:18 | P.PNPSI_ITS ---
Subjective Subjective Date of Service: 04/26/23 Reason For Visit: Depression hopelessness irritability Subjective Notes: Conditional Voluntary Interim History: Pt nodding on and off throughout the morning. Pt reports fair sleep. Pt denied SI/HI. He reports feeling tired. No behavioral concerns. Review of Systems Review of Systems unremarkable Yes all other systems are reviewed and are negative, Unobtainable due to mental condition and Unobtainable due to mental status Mental Status Exam Mental Status Exam Narrative: Patient Appearance: Well Grooomed and Appropriate Patient Orientation: Person, Place and Situation Level of Consciousness: Awake and Appropriate Patient Behavior: Guarded and Passive Behavior Comments: Mood Description: Withdrawn and Constricted Affect Description: Calm Patient Cognition Impaired: Yes Ability to Follow Directions: Good Speech Pattern: Clear Memory Description: Intact Diagnostics Vital Signs (24Hr): Vital Signs - 24 hr 04/26/23 08:00 Temperature 97.8 F Pulse Rate 71 Respiratory Rate 18 Blood Pressure 135/74 Pulse Oximetry 95 Oxygen Delivery Method Room Air BMI result Body Mass Index 30.2 Labs 04/09/23 07:59 04/09/23 07:59 Imaging Radiology Impressions: ITS Impressions Chest X-Ray 10/20/22 15:45 IMPRESSION: 1. Low lung volumes with bibasilar linear disc atelectasis versus scarring. 2. No airspace consolidation or effusion. Head CT 11/08/22 12:29 IMPRESSION: No acute intracranial hemorrhage or territorial infarction. Stable chronic postoperative changes with gliosis and encephalomalacia in the right frontal and right temporal lobes. Ex vacuo dilatation of the ventricles and diffuse parenchymal volume loss. Right-sided craniotomy changes. Chest X-Ray 11/12/22 10:32 IMPRESSION: Hypoexpanded lungs with bibasilar platelike atelectasis. Brain MRI 11/12/22 13:15 IMPRESSION: 1. No demonstrated acute intracranial abnormalities. 2. Chronic encephalomalacia of the right temporal, right frontal, and left occipital lobes. Small regions of chronic encephalomalacia in the parasagittal aspects of the bilateral parietal lobes. Moderate underlying microangiopathy and generalized cerebral volume loss. Chest X-Ray 11/14/22 15:52 IMPRESSION: Low lung volumes, bibasilar subsegmental atelectasis and slight elevation of the right hemidiaphragm similar to previous exam. Modified Barium Swallow 11/21/22 15:11 IMPRESSION: Laryngeal penetration on several occasions but no laryngeal aspiration. Mild retention of solid food in the valleculae which cleared with subsequent oral administration of water or thin barium. Correlate with speech therapy results. Orbit CT 01/23/23 14:05 IMPRESSION: - No definite significant intraorbital soft tissue findings to assessment is limited on a noncontrast CT of the orbits. No retrobulbar mass lesions and no cellulitic changes appreciated. - There are large fluid levels within the left maxillary sinus and within the right frontal sinus the can be correlated for clinical signs of acute sinusitis. - A peripherally ossified structure extending from the dorsal margin of the right nasolacrimal duct into the right maxillary sinus is stable when compared to examinations dated back to 08/24/2008 favoring a benign etiology. Cervical Spine CT 02/14/23 22:15 IMPRESSION: 1. No acute intracranial abnormality. Stable postsurgical changes with right frontotemporal encephalomalacia, global volume loss, and extraocular dilatation of the right lateral ventricle. 2. No cervical spine fracture or traumatic malalignment. Head CT 02/14/23 22:15 IMPRESSION: 1. No acute intracranial abnormality. Stable postsurgical changes with right frontotemporal encephalomalacia, global volume loss, and extraocular dilatation of the right lateral ventricle. 2. No cervical spine fracture or traumatic malalignment. Hip/Pelvis X-Ray 02/14/23 22:25 IMPRESSION: Moderate degenerative changes of the right hip with loss of superolateral joint space. Similar chronic posttraumatic deformity of the right femoral neck with chronic foreshortening. Status post left total hip arthroplasty in unchanged alignment however the lack of a crosstable lateral view limits assessment for dislocation. No acute fracture or dislocation appreciated on the available views. Foot X-Ray 02/22/23 13:50 IMPRESSION: * Postsurgical changes of arthrodesis first metatarsophalangeal joint. * There is developed large osteophyte from the head of the first metatarsal protruding laterally abutting the head of the second metatarsal. This might be the source of patient's pain. * Underlying degenerative osteoarthritis. Foot X-Ray 02/23/23 14:11 IMPRESSION: Mild degenerative changes MTP, PIP and DIP joints. No visible acute fracture or dislocation seen. Medications Medications Current Medications Acetaminophen (Acetaminophen 325 Mg Tablet) 975 mg PO Q6H PRN PRN Reason: Headache/Pain Mild Scale (1-3) Last Admin: 04/24/23 21:04 Dose: 975 mg Alprazolam (Alprazolam 0.5 Mg Tablet) 0.5 mg PO BEDTIME [facility] Last Admin: 04/25/23 22:36 Dose: 0.5 mg Alprazolam (Alprazolam 0.25 Mg Tablet) 0.25 mg PO BID@0830,1430 [facility] Last Admin: 04/26/23 14:39 Dose: 0.25 mg Artificial Tears (Artificial Tears 15 Ml Drops) 1 drop EYE-BOTH Q2H PRN PRN Reason: Dry Eyes Last Admin: 04/25/23 22:48 Dose: 1 drop Bisacodyl (Bisacodyl 10 Mg Supp.Rect) 10 mg [place] DAILY PRN PRN Reason: Constipation Clotrimazole (Clotrimazole 1 % Cream 15 Gm Tube) 1 appl TOPICAL BID TAZ; Protocol Last Admin: 04/26/23 08:36 Dose: 1 appl Divalproex Sodium (Divalproex Sodium 250 Mg Tablet.Dr) 750 mg PO BEDTIME TAZ Last Admin: 04/25/23 22:37 Dose: 750 mg Divalproex Sodium (Divalproex Sodium Sprinkles 125 Mg Cap.Dr.Spr) 125 mg PO DAILY@1200 TAZ Last Admin: 04/26/23 14:39 Dose: 125 mg Guaifenesin/Dextromethorphan (Guaifenesin Dm 100/10/5 Ml 5 Ml Syrup) 5 ml PO Q 4H PRN PRN Reason: cough Last Admin: 03/27/23 22:10 Dose: 5 ml Hydrocortisone (Hydrocortisone 1 % Cream 28.35 Gm Tube) 1 appl TOPICAL BID PRN; Protocol PRN Reason: itchy feet Last Admin: 04/12/23 21:27 Dose: 1 appl Hydroxyzine HCl (Hydroxyzine Hcl 25 Mg Tablet) 25 mg PO Q4H PRN PRN Reason: Anxiety Last Admin: 04/23/23 04:11 Dose: 25 mg Ibuprofen (Ibuprofen 600 Mg Tablet) 600 mg PO Q6H PRN PRN Reason: Pain, Moderate(Pain Scale 4-6) Last Admin: 04/25/23 06:10 Dose: 600 mg Latanoprost (Latanoprost 0.005 % Ophth No 2.5 Ml Drops) 1 drop EYE-BOTH BEDTIME TAZ Last Admin: 04/25/23 22:48 Dose: 1 drop Lidocaine (Lidocaine 5 % Ointment 35 Gm) 1 appl TOPICAL Q6H PRN; Protocol PRN Reason: pain r foot Last Admin: 04/25/23 22:48 Dose: 1 appl Magnesium Hydroxide (Milk Of Magnesia 30 Ml Oral.Susp) 30 ml PO BID PRN PRN Reason: constipation, stomach/GI upset Last Admin: 04/06/23 21:24 Dose: 30 ml Nortriptyline HCl (Nortriptyline Hcl 25 Mg Capsule) 75 mg PO BEDTIME TAZ Last Admin: 04/25/23 22:36 Dose: 75 mg Nystatin (Nystatin Powder 15 Gm Bottle) 1 appl TOPICAL BID TAZ; Protocol Last Admin: 04/26/23 08:36 Dose: Not Given Olanzapine (Olanzapine 2.5 Mg Tablet) 2.5 mg PO Q4H PRN PRN Reason: anxiety/restlessness Last Admin: 04/24/23 10:19 Dose: 2.5 mg Olanzapine (Olanzapine 2.5 Mg Tablet) 2.5 mg PO BEDTIME TAZ Last Admin: 04/25/23 22:37 Dose: 2.5 mg Ondansetron HCl (Ondansetron Odt 4 Mg Tab.Rapdis) 4 mg TRANSLINGU Q6H PRN PRN Reason: Nausea and Vomiting Last Admin: 03/20/23 09:13 Dose: 4 mg Polyethylene Glycol (Polyethylene Glycol 3350 17 Gm Powd.Pack) 17 gm PO DAILY PRN PRN Reason: Constipation Last Admin: 04/24/23 08:52 Dose: 17 gm Propranolol HCl (Propranolol Hcl 20 Mg Tablet) 20 mg PO TID TAZ; Protocol Last Admin: 04/26/23 14:38 Dose: 20 mg Senna/Docusate Sodium (Sennosides/Docusate Sodium Tablet) 2 tab PO BEDTIME TAZ Last Admin: 04/25/23 22:32 Dose: 1 tab Sodium Chloride (Sodium Chloride 0.65 % Nasal 44 Ml Sprbtl) 1 spray NOSTRIL-B Q1H PRN PRN Reason: Nasal Congestion Last Admin: 02/26/23 21:14 Dose: 1 spray Trazodone HCl (Trazodone Hcl 100 Mg Tablet) 200 mg PO BEDTIME TAZ Last Admin: 04/25/23 22:44 Dose: 200 mg Vortioxetine (Vortioxetine Hydrobromide 5 Mg Tablet) 5 mg PO DAILY TAZ Last Admin: 04/26/23 08:05 Dose: 5 mg Zolpidem Tartrate (Zolpidem Tartrate 5 Mg Tablet) 5 mg PO BEDTIME PRN PRN Reason: Insomnia Last Admin: 04/25/23 22:46 Dose: 5 mg Allergies Allergies Allergy/AdvReac Type Severity Reaction Status Date / Time fentanyl [FENTANYL] Allergy Intermediate unknown Verified 04/08/22 07:00 Assessment & Plan Assessment & Plan (1) Major depressive disorder, recurrent severe without psychotic features: Status: Acute Code(s): F33.2 - Major depressive disorder, recurrent severe without psychotic features (2) Cognitive and neurobehavioral dysfunction following brain injury: Status: Acute Code(s): G31.89 - Other specified degenerative diseases of nervous system; F09 - Unspecified mental disorder due to known physiological condition; S06.9X9S - Unspecified intracranial injury with loss of consciousness of unspecified duration, sequela (3) Personality disorder in adult: Status: Acute Code(s): F60.9 - Personality disorder, unspecified Plan ALPRAZOLAM 0.25 B.I.D. 0.5 BEDTIME OLANZAPINE ALSO 3 TIMES A DAY CONTINUE DEPAKOTE START PROPRANOLOL 10 T.I.D. THE PATIENT CONFRONTED REGARDING NEGATIVE TOXIC BEHAVIOR DIFFICULTY COPING AND NEGATIVE COMPLICATIONS TO HIS LIFE IF CONTINUE VERBALLY AGGRESSIVE AND TOXIC BEHAVIOR WITH OTHERS DEVALUATION ENCOURAGE REFLECTION STRESS MANAGEMENT COPING STRATEGIES 03/07 continue same treatment 03/08 continue same treatment 03/09 continue same treatment 03/10/23 Lower alprazolam .125 mg bid hold afternoon olanzapine secondary to slurring oversedation cont propranolol 03/11/23 Pt doing better less sedated struggles to maintain pos attitude 03/13 continue tx. 03/14: stable presentation, no change in mgmt. 03/15: appears sedated. no change in mgmt today. to F/U with attending tomorrow re meds for anxiety. 03/16 continue tx. 03/17 continue tx. 03/18 continue tx. 03/19 continue tx. 03/22 continue tx. 03/23 continue tx. 03/24/2023 Continue treatment plan discharge planning 03/25/2023 Continue plan of care 03/26/2023 Continued discharge planning needs much reassurance 03/27 continue tx. 03/28: Continue treatment plan. 03/29: Continue current treatment plan 03/30 continue tx. 03/31 continue tx. 04/02 no changes in treatment 04/03/2023 Patient more reactive belligerent kicked out at another person and was reactive with staff and aggressive. Seems much more triggered by stimulation difficulty reflecting discussed with patient increasing olanzapine alprazolam for behavioral control 04/07/23 Cont depakote olanzpine alprazolam encourage strategies to deal with triggers d/c planning 04/08/2023 Depakote increased by 125 mg nortriptyline increased continue discharge planning CK CHEM UA CBC 04/09/23 Patient has become increasingly depressed olanzapine Depakote could not effective for dysphoria irritability case reviewed dr nelson consider ect mirtazapine 04/10 Add Ambien 5 mg at hs 04/11: Continue current treatment plan. 04/12: Continue current treatment plan. 04/13: Continue current plan of care. 04/14 cont plan of care 04/15/23 Start trintellix 5mg daily 04/17/23 Continue treatment plan patient was seen 04/16 and 04/17 Mood generally improved less labile future oriented feels better able to try keep his future focus not current triggers in the inpatient setting nortriptyline has been increased 75 mg Trintellix 5 mg 04/19 keep same treatment 04/20/2023 Lower olanzapine 2.5 at bedtime continue p.r.n. 2.5 hopefully will help with feelings of sedation monitor mood 04/21 continue tx. 04/22 continue tx. 04/23/23 inc mirtazapine 15 hs alp 0.25 prn 04/24/23 inc hs alprazolam 0.5 hs 04/25 continue tx. 04/26 trazodone added back per pt request, remeron d/c. Reason for continued inpatient stay Substantial Risk for: inability to function Time Spent With Patient Time: Total time managing care of this patient today ____ minutes.
[2023-04-26] MEDS: ALPRAZolam 0.5 MG TABLET PO (20:38)
[2023-04-26] MEDS: Nortriptyline HCl 25 MG CAPSULE 75 MG PO (20:39)
[2023-04-26] MEDS: traZODone HCL 100 MG TABLET 200 MG PO (20:39)
[2023-04-26] MEDS: OLANZapine 2.5 MG TABLET PO (20:40)
[2023-04-26] MEDS: Sennosides/Docusate Sodium TABLET 2 TAB PO (20:40)
[2023-04-26] MEDS: Divalproex Sodium 250 MG TABLET.DR 750 MG PO (20:41)
[2023-04-26] MEDS: Acetaminophen 325 MG TABLET 975 MG PO (20:41)
[2023-04-26] MEDS: Artificial Tears 15 ML DROPS 1 DROP EYE-BOTH (20:43)
[2023-04-26] MEDS: Latanoprost 0.005 % Ophth Sol 2.5 ML DROPS 1 DROP EYE-BOTH (20:46)
[2023-04-26] MEDS: Nystatin Powder 15 GM BOTTLE 1 APPL TOPICAL (20:47)
[2023-04-26] MEDS: Zolpidem Tartrate 5 MG TABLET PO (20:56)
[2023-04-26] MEDS: Lidocaine 5 % Ointment 35 GM 1 APPL TOPICAL (20:56)
[2023-04-27 08:32] VITALS: BP 119/68; PULSE 69; RESP 18; TEMP 36.2; O2SAT 97
[2023-04-27] MEDS: Ibuprofen 600 MG TABLET PO (08:40)
[2023-04-27] MEDS: ALPRAZolam 0.25 MG TABLET PO ×2 (08:41→14:38)
[2023-04-27] MEDS: Vortioxetine Hydrobromide 5 MG TABLET PO (08:41)
[2023-04-27] MEDS: Propranolol HCL 20 MG TABLET PO ×3 (08:41→20:46)
[2023-04-27] MEDS: Artificial Tears 15 ML DROPS 1 DROP EYE-BOTH ×2 (08:42→20:53)
[2023-04-27] MEDS: polyethylene glycoL 3350 17 GM POWD.PACK PO (08:42)
[2023-04-27] MEDS: Divalproex Sodium Sprinkles 125 MG CAP.DR.SPR PO (11:55)
[2023-04-27 14:38] VITALS: BP 117/65; PULSE 72
--- NOTE | 2023-04-27 17:10 | HO.PSYCHPN ---
Subjective Subjective Date of Service: 04/27/23 Reason For Visit: Depression hopelessness irritability Subjective Notes: Conditional Voluntary Healthcare Proxy: No Interim History: pt seen mood more stable less labile Mental Status Exam Mental Status Exam Narrative: Patient Appearance: Well Grooomed and Appropriate Patient Orientation: Person, Place and Situation Level of Consciousness: Awake and Appropriate Patient Behavior: Guarded and Passive Behavior Comments: Mood Description: Withdrawn and Constricted Affect Description: Calm Patient Cognition Impaired: Yes Ability to Follow Directions: Good Speech Pattern: Clear Memory Description: Intact Diagnostics Vital Signs (24Hr): Vital Signs - 24 hr 04/26/23 18:00 04/27/23 08:32 04/27/23 14:38 Temperature 97.6 F 97.1 F Pulse Rate 80 69 72 Respiratory Rate 16 18 Blood Pressure 119/62 119/68 117/65 Pulse Oximetry 93 97 Oxygen Delivery Method Room Air Room Air BMI result Body Mass Index 30.2 Labs 04/09/23 07:59 04/09/23 07:59 Imaging Radiology Impressions: ITS Impressions Chest X-Ray 10/20/22 15:45 IMPRESSION: 1. Low lung volumes with bibasilar linear disc atelectasis versus scarring. 2. No airspace consolidation or effusion. Head CT 11/08/22 12:29 IMPRESSION: No acute intracranial hemorrhage or territorial infarction. Stable chronic postoperative changes with gliosis and encephalomalacia in the right frontal and right temporal lobes. Ex vacuo dilatation of the ventricles and diffuse parenchymal volume loss. Right-sided craniotomy changes. Chest X-Ray 11/12/22 10:32 IMPRESSION: Hypoexpanded lungs with bibasilar platelike atelectasis. Brain MRI 11/12/22 13:15 IMPRESSION: 1. No demonstrated acute intracranial abnormalities. 2. Chronic encephalomalacia of the right temporal, right frontal, and left occipital lobes. Small regions of chronic encephalomalacia in the parasagittal aspects of the bilateral parietal lobes. Moderate underlying microangiopathy and generalized cerebral volume loss. Chest X-Ray 11/14/22 15:52 IMPRESSION: Low lung volumes, bibasilar subsegmental atelectasis and slight elevation of the right hemidiaphragm similar to previous exam. Modified Barium Swallow 11/21/22 15:11 IMPRESSION: Laryngeal penetration on several occasions but no laryngeal aspiration. Mild retention of solid food in the valleculae which cleared with subsequent oral administration of water or thin barium. Correlate with speech therapy results. Orbit CT 01/23/23 14:05 IMPRESSION: - No definite significant intraorbital soft tissue findings to assessment is limited on a noncontrast CT of the orbits. No retrobulbar mass lesions and no cellulitic changes appreciated. - There are large fluid levels within the left maxillary sinus and within the right frontal sinus the can be correlated for clinical signs of acute sinusitis. - A peripherally ossified structure extending from the dorsal margin of the right nasolacrimal duct into the right maxillary sinus is stable when compared to examinations dated back to 08/24/2008 favoring a benign etiology. Cervical Spine CT 02/14/23 22:15 IMPRESSION: 1. No acute intracranial abnormality. Stable postsurgical changes with right frontotemporal encephalomalacia, global volume loss, and extraocular dilatation of the right lateral ventricle. 2. No cervical spine fracture or traumatic malalignment. Head CT 02/14/23 22:15 IMPRESSION: 1. No acute intracranial abnormality. Stable postsurgical changes with right frontotemporal encephalomalacia, global volume loss, and extraocular dilatation of the right lateral ventricle. 2. No cervical spine fracture or traumatic malalignment. Hip/Pelvis X-Ray 02/14/23 22:25 IMPRESSION: Moderate degenerative changes of the right hip with loss of superolateral joint space. Similar chronic posttraumatic deformity of the right femoral neck with chronic foreshortening. Status post left total hip arthroplasty in unchanged alignment however the lack of a crosstable lateral view limits assessment for dislocation. No acute fracture or dislocation appreciated on the available views. Foot X-Ray 02/22/23 13:50 IMPRESSION: * Postsurgical changes of arthrodesis first metatarsophalangeal joint. * There is developed large osteophyte from the head of the first metatarsal protruding laterally abutting the head of the second metatarsal. This might be the source of patient's pain. * Underlying degenerative osteoarthritis. Foot X-Ray 02/23/23 14:11 IMPRESSION: Mild degenerative changes MTP, PIP and DIP joints. No visible acute fracture or dislocation seen. Medications Medications Current Medications Acetaminophen (Acetaminophen 325 Mg Tablet) 975 mg PO Q6H PRN PRN Reason: Headache/Pain Mild Scale (1-3) Last Admin: 04/26/23 20:41 Dose: 975 mg Alprazolam (Alprazolam 0.5 Mg Tablet) 0.5 mg PO BEDTIME [facility] Last Admin: 04/26/23 20:38 Dose: 0.5 mg Alprazolam (Alprazolam 0.25 Mg Tablet) 0.25 mg PO BID@0830,1430 [facility] Last Admin: 04/27/23 14:38 Dose: 0.25 mg Artificial Tears (Artificial Tears 15 Ml Drops) 1 drop EYE-BOTH Q2H PRN PRN Reason: Dry Eyes Last Admin: 04/27/23 08:42 Dose: 1 drop Bisacodyl (Bisacodyl 10 Mg Supp.Rect) 10 mg [place] DAILY PRN PRN Reason: Constipation Clotrimazole (Clotrimazole 1 % Cream 15 Gm Tube) 1 appl TOPICAL BID [facility]; Protocol Last Admin: 04/27/23 08:47 Dose: Not Given Divalproex Sodium (Divalproex Sodium 250 Mg Tablet.Dr) 750 mg PO BEDTIME [facility] [place] Last Admin: 04/26/23 20:41 Dose: 750 mg Divalproex Sodium (Divalproex Sodium Sprinkles 125 Mg Cap.Dr.Spr) 125 mg PO DAILY@1200 [facility] [place] Last Admin: 04/27/23 11:55 Dose: 125 mg Guaifenesin/Dextromethorphan (Guaifenesin Dm 100/10/5 Ml 5 Ml Syrup) 5 ml PO Q4H PRN PRN Reason: cough Last Admin: 03/27/23 22:10 Dose: 5 ml Hydrocortisone (Hydrocortisone 1 % Cream 28.35 Gm Tube) 1 appl TOPICAL BID PRN; Protocol PRN Reason: itchy feet Last Admin: 04/12/23 21:27 Dose: 1 appl Hydroxyzine HCl (Hydroxyzine Hcl 25 Mg Tablet) 25 mg PO Q4H PRN PRN Reason: Anxiety Last Admin: 04/23/23 04:11 Dose: 25 mg Ibuprofen (Ibuprofen 600 Mg Tablet) 600 mg PO Q6H PRN PRN Reason: Pain, Moderate(Pain Scale 4-6) Last Admin: 04/27/23 08:40 Dose: 600 mg Latanoprost (Latanoprost 0.005 % Ophth No 2.5 Ml Drops) 1 drop EYE-BOTH BEDTIME [facility] [place] Last Admin: 04/26/23 20:46 Dose: 1 drop Lidocaine (Lidocaine 5 % Ointment 35 Gm) 1 appl TOPICAL Q6H PRN; Protocol PRN Reason: pain r foot Last Admin: 04/26/23 20:56 Dose: 1 appl Magnesium Hydroxide (Milk Of Magnesia 30 Ml Oral.Susp) 30 ml PO BID PRN PRN Reason: constipation, stomach/GI upset Last Admin: 04/06/23 21:24 Dose: 30 ml Nortriptyline HCl (Nortriptyline Hcl 25 Mg Capsule) 75 mg PO BEDTIME [facility] Last Admin: 04/26/23 20:39 Dose: 75 mg Nystatin (Nystatin Powder 15 Gm Bottle) 1 appl TOPICAL BID [facility]; Protocol Last Admin: 04/27/23 08:47 Dose: Not Given Olanzapine (Olanzapine 2.5 Mg Tablet) 2.5 mg PO Q4H PRN PRN Reason: anxiety/restlessness Last Admin: 04/24/23 10:19 Dose: 2.5 mg Olanzapine (Olanzapine 2.5 Mg Tablet) 2.5 mg PO BEDTIME [facility] Last Admin: 04/26/23 20:40 Dose: 2.5 mg Ondansetron HCl (Ondansetron Odt 4 Mg Tab.Rapdis) 4 mg TRANSLINGU Q6H PRN PRN Reason: Nausea and Vomiting Last Admin: 03/20/23 09:13 Dose: 4 mg Polyethylene Glycol (Polyethylene Glycol 3350 17 Gm Powd.Pack) 17 gm PO DAILY PRN PRN Reason: Constipation Last Admin: 04/27/23 08:42 Dose: 17 gm Propranolol HCl (Propranolol Hcl 20 Mg Tablet) 20 mg PO TID [facility]; Protocol Last Admin: 04/27/23 14:38 Dose: 20 mg Senna/Docusate Sodium (Sennosides/Docusate Sodium Tablet) 2 tab PO BEDTIME [facility] Last Admin: 04/26/23 20:40 Dose: 1 tab Sodium Chloride (Sodium Chloride 0.65 % Nasal 44 Ml Sprbtl) 1 spray NOSTRIL-B Q1H PRN PRN Reason: Nasal Congestion Last Admin: 02/26/23 21:14 Dose: 1 spray Trazodone HCl (Trazodone Hcl 100 Mg Tablet) 200 mg PO BEDTIME [facility] Last Admin: 04/26/23 20:39 Dose: 200 mg Vortioxetine (Vortioxetine Hydrobromide 5 Mg Tablet) 5 mg PO DAILY [facility] Last Admin: 04/27/23 08:41 Dose: 5 mg Zolpidem Tartrate (Zolpidem Tartrate 5 Mg Tablet) 5 mg PO BEDTIME PRN PRN Reason: Insomnia Last Admin: 04/26/23 20:56 Dose: 5 mg Allergies Allergies Allergy/AdvReac Type Severity Reaction Status Date / Time fentanyl [FENTANYL] Allergy Intermediate unknown Verified 04/08/22 07:00 Assessment & Plan Assessment & Plan (1) Major depressive disorder, recurrent severe without psychotic features: Status: Acute Code(s): F33.2 - Major depressive disorder, recurrent severe without psychotic features (2) Cognitive and neurobehavioral dysfunction following brain injury: Status: Acute Code(s): G31.89 - Other specified degenerative diseases of nervous system; F09 - Unspecified mental disorder due to known physiological condition; S06.9X9S - Unspecified intracranial injury with loss of consciousness of unspecified duration, sequela (3) Personality disorder in adult: Status: Acute Code(s): F60.9 - Personality disorder, unspecified Plan ALPRAZOLAM 0.25 B.I.D. 0.5 BEDTIME OLANZAPINE ALSO 3 TIMES A DAY CONTINUE DEPAKOTE START PROPRANOLOL 10 T.I.D. THE PATIENT CONFRONTED REGARDING NEGATIVE TOXIC BEHAVIOR DIFFICULTY COPING AND NEGATIVE COMPLICATIONS TO HIS LIFE IF CONTINUE VERBALLY AGGRESSIVE AND TOXIC BEHAVIOR WITH OTHERS DEVALUATION ENCOURAGE REFLECTION STRESS MANAGEMENT COPING STRATEGIES 03/07 continue same treatment 03/08 continue same treatment 03/09 continue same treatment 03/10/23 Lower alprazolam .125 mg bid hold afternoon olanzapine secondary to slurring oversedation cont propranolol 03/11/23 Pt doing better less sedated struggles to maintain pos attitude 03/13 continue tx. 03/14: stable presentation, no change in mgmt. 03/15: appears sedated. no change in mgmt today. to F/U with attending tomorrow re meds for anxiety. 03/16 continue tx. 03/17 continue tx. 03/18 continue tx. 03/19 continue tx. 03/22 continue tx. 03/23 continue tx. 03/24/2023 Continue treatment plan discharge planning 03/25/2023 Continue plan of care 03/26/2023 Continued discharge planning needs much reassurance 03/27 continue tx. 03/28: Continue treatment plan. 03/29: Continue current treatment plan 03/30 continue tx. 03/31 continue tx. 04/02 no changes in treatment 04/03/2023 Patient more reactive belligerent kicked out at another person and was reactive with staff and aggressive. Seems much more triggered by stimulation difficulty reflecting discussed with patient increasing olanzapine alprazolam for behavioral control 04/07/23 Cont depakote olanzpine alprazolam encourage strategies to deal with triggers d/c planning 04/08/2023 Depakote increased by 125 mg nortriptyline increased continue discharge planning CK CHEM UA CBC 04/09/23 Patient has become increasingly depressed olanzapine Depakote could not effective for dysphoria irritability case reviewed dr nelson consider ect mirtazapine 04/10 Add Ambien 5 mg at hs 04/11: Continue current treatment plan. 04/12: Continue current treatment plan. 04/13: Continue current plan of care. 04/14 cont plan of care 04/15/23 Start trintellix 5mg daily 04/17/23 Continue treatment plan patient was seen 04/16 and 04/17 Mood generally improved less labile future oriented feels better able to try keep his future focus not current triggers in the inpatient setting nortriptyline has been increased 75 mg Trintellix 5 mg 04/19 keep same treatment 04/20/2023 Lower olanzapine 2.5 at bedtime continue p.r.n. 2.5 hopefully will help with feelings of sedation monitor mood 04/21 continue tx. 04/22 continue tx. 04/23/23 inc mirtazapine 15 hs alp 0.25 prn 04/24/23 inc hs alprazolam 0.5 hs 04/25 continue tx. 04/26 trazodone added back per pt request, remeron d/c. 04/27/23 pt doing better more stable cont plan of care Reason for continued inpatient stay Substantial Risk for: inability to function and rapid decompensation Time Spent With Patient Time: Total time managing care of this patient today ____ minutes.
[2023-04-27 18:00] VITALS: BP 153/73; PULSE 74; RESP 16; TEMP 35.8; O2SAT 96
[2023-04-27] MEDS: traZODone HCL 100 MG TABLET 200 MG PO (20:41)
[2023-04-27] MEDS: Divalproex Sodium 250 MG TABLET.DR 750 MG PO (20:42)
[2023-04-27] MEDS: ALPRAZolam 0.5 MG TABLET PO (20:42)
[2023-04-27] MEDS: OLANZapine 2.5 MG TABLET PO (20:43)
[2023-04-27] MEDS: Zolpidem Tartrate 5 MG TABLET PO (20:44)
[2023-04-27] MEDS: Sennosides/Docusate Sodium TABLET 2 TAB PO (20:44)
[2023-04-27] MEDS: Nortriptyline HCl 25 MG CAPSULE 75 MG PO (20:45)
[2023-04-27] MEDS: Acetaminophen 325 MG TABLET 975 MG PO (20:48)
[2023-04-27] MEDS: Latanoprost 0.005 % Ophth Sol 2.5 ML DROPS 1 DROP EYE-BOTH (20:53)
[2023-04-27] MEDS: Lidocaine 5 % Ointment 35 GM 1 APPL TOPICAL ×2 (20:53→21:01)
[2023-04-27] MEDS: Clotrimazole 1 % Cream 15 GM TUBE 1 APPL TOPICAL (20:53)
[2023-04-28] MEDS: hydrOXYzine HCL 25 MG TABLET PO ×2 (03:25→21:44)
[2023-04-28] MEDS: OLANZapine 2.5 MG TABLET PO ×2 (03:25→20:51)
[2023-04-28 08:28] VITALS: BP 127/69; PULSE 66; RESP 20; TEMP 36.3; O2SAT 97
[2023-04-28] MEDS: Vortioxetine Hydrobromide 5 MG TABLET PO (08:32)
[2023-04-28] MEDS: polyethylene glycoL 3350 17 GM POWD.PACK PO (08:32)
[2023-04-28] MEDS: Ibuprofen 600 MG TABLET PO (08:32)
[2023-04-28] MEDS: ALPRAZolam 0.25 MG TABLET PO ×2 (08:32→15:18)
[2023-04-28] MEDS: Propranolol HCL 20 MG TABLET PO ×3 (08:32→20:51)
[2023-04-28] MEDS: Artificial Tears 15 ML DROPS 1 DROP EYE-BOTH ×2 (08:35→21:05)
[2023-04-28] MEDS: Divalproex Sodium Sprinkles 125 MG CAP.DR.SPR PO (12:38)
[2023-04-28 15:14] VITALS: BP 126/72; PULSE 65
--- NOTE | 2023-04-28 16:41 | P.PNPSI_ITS ---
Subjective Subjective Date of Service: 04/28/23 Reason For Visit: Depression hopelessness irritability Subjective Notes: Conditional Voluntary Interim History: Patient was feeling somewhat more down today unclear if related to discontinuation of mirtazapine for trazodone Medication Compliance: Yes Attending Groups: Intermittent Review of Systems Acute medical concerns: No Review of Systems: rectal itching Mental Status Exam Mental Status Exam Narrative: Patient Appearance: Well Grooomed and Fatigued Patient Orientation: Person, Place and Situation Level of Consciousness: Awake and Appropriate Patient Behavior: Cooperative and Passive Behavior Comments: Mood Description: Withdrawn and Constricted Affect Description: Constricted and Apprehensive Patient Cognition Impaired: Yes Ability to Follow Directions: Good Speech Pattern: Clear Memory Description: Intact Thought Content: positive for Preoccupation, negative for Suicidal Ideation or negative for Homicidal Ideation Judgement and Insight: Concerns regarding plant that he has been hospital and hopeful for discharge transition Diagnostics Vital Signs (24Hr): Vital Signs - 24 hr 04/27/23 18:00 04/28/23 08:28 04/28/23 15:14 Temperature 96.5 F L 97.3 F Pulse Rate 74 66 65 Respiratory Rate 16 20 Blood Pressure 153/73 H 127/69 126/72 Pulse Oximetry 96 97 Oxygen Delivery Method Room Air Room Air BMI result Body Mass Index 30.2 Labs 04/09/23 07:59 04/09/23 07:59 Imaging Radiology Impressions: ITS Impressions Chest X-Ray 10/20/22 15:45 IMPRESSION: 1. Low lung volumes with bibasilar linear disc atelectasis versus scarring. 2. No airspace consolidation or effusion. Head CT 11/08/22 12:29 IMPRESSION: No acute intracranial hemorrhage or territorial infarction. Stable chronic postoperative changes with gliosis and encephalomalacia in the right frontal and right temporal lobes. Ex vacuo dilatation of the ventricles and diffuse parenchymal volume loss. Right-sided craniotomy changes. Chest X-Ray 11/12/22 10:32 IMPRESSION: Hypoexpanded lungs with bibasilar platelike atelectasis. Brain MRI 11/12/22 13:15 IMPRESSION: 1. No demonstrated acute intracranial abnormalities. 2. Chronic encephalomalacia of the right temporal, right frontal, and left occipital lobes. Small regions of chronic encephalomalacia in the parasagittal aspects of the bilateral parietal lobes. Moderate underlying microangiopathy and generalized cerebral volume loss. Chest X-Ray 11/14/22 15:52 IMPRESSION: Low lung volumes, bibasilar subsegmental atelectasis and slight elevation of the right hemidiaphragm similar to previous exam. Modified Barium Swallow 11/21/22 15:11 IMPRESSION: Laryngeal penetration on several occasions but no laryngeal aspiration. Mild retention of solid food in the valleculae which cleared with subsequent oral administration of water or thin barium. Correlate with speech therapy results. Orbit CT 01/23/23 14:05 IMPRESSION: - No definite significant intraorbital soft tissue findings to assessment is limited on a noncontrast CT of the orbits. No retrobulbar mass lesions and no cellulitic changes appreciated. - There are large fluid levels within the left maxillary sinus and within the right frontal sinus the can be correlated for clinical signs of acute sinusitis. - A peripherally ossified structure extending from the dorsal margin of the right nasolacrimal duct into the right maxillary sinus is stable when compared to examinations dated back to 08/24/2008 favoring a benign etiology. Cervical Spine CT 02/14/23 22:15 IMPRESSION: 1. No acute intracranial abnormality. Stable postsurgical changes with right frontotemporal encephalomalacia, global volume loss, and extraocular dilatation of the right lateral ventricle. 2. No cervical spine fracture or traumatic malalignment. Head CT 02/14/23 22:15 IMPRESSION: 1. No acute intracranial abnormality. Stable postsurgical changes with right frontotemporal encephalomalacia, global volume loss, and extraocular dilatation of the right lateral ventricle. 2. No cervical spine fracture or traumatic malalignment. Hip/Pelvis X-Ray 02/14/23 22:25 IMPRESSION: Moderate degenerative changes of the right hip with loss of superolateral joint space. Similar chronic posttraumatic deformity of the right femoral neck with chronic foreshortening. Status post left total hip arthroplasty in unchanged alignment however the lack of a crosstable lateral view limits assessment for dislocation. No acute fracture or dislocation appreciated on the available views. Foot X-Ray 02/22/23 13:50 IMPRESSION: * Postsurgical changes of arthrodesis first metatarsophalangeal joint. * There is developed large osteophyte from the head of the first metatarsal protruding laterally abutting the head of the second metatarsal. This might be the source of patient's pain. * Underlying degenerative osteoarthritis. Foot X-Ray 02/23/23 14:11 IMPRESSION: Mild degenerative changes MTP, PIP and DIP joints. No visible acute fracture or dislocation seen. Medications Medications Current Medications Acetaminophen (Acetaminophen 325 Mg Tablet) 975 mg PO Q6H PRN PRN Reason: Headache/Pain Mild Scale (1-3) Last Admin: 04/27/23 20:48 Dose: 975 mg Alprazolam (Alprazolam 0.5 Mg Tablet) 0.5 mg PO BEDTIME TAZ Last Admin: 04/27/23 20:42 Dose: 0.5 mg Alprazolam (Alprazolam 0.25 Mg Tablet) 0.25 mg PO BID@0830,1430 [facility] Last Admin: 04/28/23 15:18 Dose: 0.25 mg Artificial Tears (Artificial Tears 15 Ml Drops) 1 drop EYE-BOTH Q2H PRN PRN Reason: Dry Eyes Last Admin: 04/28/23 08:35 Dose: 1 drop Bisacodyl (Bisacodyl 10 Mg Supp.Rect) 10 mg RI DAILY PRN PRN Reason: Constipation Clotrimazole (Clotrimazole 1 % Cream 15 Gm Tube) 1 appl TOPICAL BID TAZ; Protocol Last Admin: 04/28/23 08:36 Dose: Not Given Divalproex Sodium (Divalproex Sodium 250 Mg Tablet.Dr) 750 mg PO BEDTIME TAZ Last Admin: 04/27/23 20:42 Dose: 750 mg Divalproex Sodium (Divalproex Sodium Sprinkles 125 Mg Cap.Dr.Spr) 125 mg PO DAILY@1200 TAZ Last Admin: 04/28/23 12:38 Dose: 125 mg Guaifenesin/Dextromethorphan (Guaifenesin Dm 100/10/5 Ml 5 Ml Syrup) 5 ml PO Q4H PRN PRN Reason: cough Last Admin: 03/27/23 22:10 Dose: 5 ml Hydrocortisone (Hydrocortisone 1 % Cream 28.35 Gm Tube) 1 appl TOPICAL BID PRN; Protocol PRN Reason: itchy feet Last Admin: 04/12/23 21:27 Dose: 1 appl Hydroxyzine HCl (Hydroxyzine Hcl 25 Mg Tablet) 25 mg PO Q4H PRN PRN Reason: Anxiety Last Admin: 04/28/23 03:25 Dose: 25 mg Ibuprofen (Ibuprofen 600 Mg Tablet) 600 mg PO Q6H PRN PRN Reason: Pain, Moderate(Pain Scale 4-6) Last Admin: 04/28/23 08:32 Dose: 600 mg Latanoprost (Latanoprost 0.005 % Ophth No 2.5 Ml Drops) 1 drop EYE-BOTH BEDTIME TAZ Last Admin: 04/27/23 20:53 Dose: 1 drop Lidocaine (Lidocaine 5 % Ointment 35 Gm) 1 appl TOPICAL Q6H PRN; Protocol PRN Reason: pain r foot Last Admin: 04/27/23 21:01 Dose: 1 appl Magnesium Hydroxide (Milk Of Magnesia 30 Ml Oral.Susp) 30 ml PO BID PRN PRN Reason: constipation, stomach/GI upset Last Admin: 04/06/23 21:24 Dose: 30 ml Nortriptyline HCl (Nortriptyline Hcl 25 Mg Capsule) 75 mg PO BEDTIME TAZ Last Admin: 04/27/23 20:45 Dose: 75 mg Nystatin (Nystatin Powder 15 Gm Bottle) 1 appl TOPICAL BID TAZ; Protocol Last Admin: 04/28/23 08:36 Dose: Not Given Olanzapine (Olanzapine 2.5 Mg Tablet) 2.5 mg PO Q4H PRN PRN Reason: anxiety/restlessness Last Admin: 04/28/23 03:25 Dose: 2.5 mg Olanzapine (Olanzapine 2.5 Mg Tablet) 2.5 mg PO BEDTIME TAZ Last Admin: 04/27/23 20:43 Dose: 2.5 mg Ondansetron HCl (Ondansetron Odt 4 Mg Tab.Rapdis) 4 mg TRANSLINGU Q6H PRN PRN Reason: Nausea and Vomiting Last Admin: 03/20/23 09:13 Dose: 4 mg Polyethylene Glycol (Polyethylene Glycol 3350 17 Gm Powd.Pack) 17 gm PO DAILY PRN PRN Reason: Constipation Last Admin: 04/28/23 08:32 Dose: 17 gm Propranolol HCl (Propranolol Hcl 20 Mg Tablet) 20 mg PO TID TAZ; Protocol Last Admin: 04/28/23 15:16 Dose: 20 mg Senna/Docusate Sodium (Sennosides/Docusate Sodium Tablet) 2 tab PO BEDTIME TAZ Last Admin: 04/27/23 20:44 Dose: 1 tab Sodium Chloride (Sodium Chloride 0.65 % Nasal 44 Ml Sprbtl) 1 spray NOSTRIL-B Q1H PRN PRN Reason: Nasal Congestion Last Admin: 02/26/23 21:14 Dose: 1 spray Trazodone HCl (Trazodone Hcl 100 Mg Tablet) 200 mg PO BEDTIME TAZ Last Admin: 04/27/23 20:41 Dose: 200 mg Vortioxetine (Vortioxetine Hydrobromide 5 Mg Tablet) 5 mg PO DAILY TAZ Last Admin: 04/28/23 08:32 Dose: 5 mg Zolpidem Tartrate (Zolpidem Tartrate 5 Mg Tablet) 5 mg PO BEDTIME PRN PRN Reason: Insomnia Last Admin: 04/27/23 20:44 Dose: 5 mg Allergies Allergies Allergy/AdvReac Type Severity Reaction Status Date / Time fentanyl [FENTANYL] Allergy Intermediate unknown Verified 04/08/22 07:00 Assessment & Plan Assessment & Plan (1) Major depressive disorder, recurrent severe without psychotic features: Status: Acute Code(s): F33.2 - Major depressive disorder, recurrent severe without psychotic features (2) Cognitive and neurobehavioral dysfunction following brain injury: Status: Acute Code(s): G31.89 - Other specified degenerative diseases of nervous system; F09 - Unspecified mental disorder due to known physiological condition; S06.9X9S - Un specified intracranial injury with loss of consciousness of unspecified duration, sequela (3) Personality disorder in adult: Status: Acute Code(s): F60.9 - Personality disorder, unspecified Plan ALPRAZOLAM 0.25 B.I.D. 0.5 BEDTIME OLANZAPINE ALSO 3 TIMES A DAY CONTINUE DEPAKOTE START PROPRANOLOL 10 T.I.D. THE PATIENT CONFRONTED REGARDING NEGATIVE TOXIC BEHAVIOR DIFFICULTY COPING AND NEGATIVE COMPLICATIONS TO HIS LIFE IF CONTINUE VERBALLY AGGRESSIVE AND TOXIC BEHAVIOR WITH OTHERS DEVALUATION ENCOURAGE REFLECTION STRESS MANAGEMENT COPING STRATEGIES 03/07 continue same treatment 03/08 continue same treatment 03/09 continue same treatment 03/10/23 Lower alprazolam .125 mg bid hold afternoon olanzapine secondary to slurring oversedation cont propranolol 03/11/23 Pt doing better less sedated struggles to maintain pos attitude 03/13 continue tx. 03/14: stable presentation, no change in mgmt. 03/15: appears sedated. no change in mgmt today. to F/U with attending tomorro w re meds for anxiety. 03/16 continue tx. 03/17 continue tx. 03/18 continue tx. 03/19 continue tx. 03/22 continue tx. 03/23 continue tx. 03/24/2023 Continue treatment plan discharge planning 03/25/2023 Continue plan of care 03/26/2023 Continued discharge planning needs much reassurance 03/27 continue tx. 03/28: Continue treatment plan. 03/29: Continue current treatment plan 03/30 continue tx. 03/31 continue tx. 04/02 no changes in treatment 04/03/2023 Patient more reactive belligerent kicked out at another person and was reactive with staff and aggressive. Seems much more triggered by stimulation difficulty reflecting discussed with patient increasing olanzapine alprazolam for behavioral control 04/07/23 Cont depakote olanzpine alprazolam encourage strategies to deal with triggers d/c planning 04/08/2023 Depakote increased by 125 mg nortriptyline increased continue discharge planning CK CHEM UA CBC 04/09/23 Patient has become increasingly depressed olanzapine Depakote could not effective for dysphoria irritability case reviewed dr nelson consider ect mirtazapine 04/10 Add Ambien 5 mg at hs 04/11: Continue current treatment plan. 04/12: Continue current treatment plan. 04/13: Continue current plan of care. 04/14 cont plan of care 04/15/23 Start trintellix 5mg daily 04/17/23 Continue treatment plan patient was seen 04/16 and 04/17 Mood generally improved less labile future oriented feels better able to try keep his future focus not current triggers in the inpatient setting nortriptyline has been increased 75 mg Trintellix 5 mg 04/19 keep same treatment 04/20/2023 Lower olanzapine 2.5 at bedtime continue p.r.n. 2.5 hopefully will help with feelings of sedation monitor mood 04/21 continue tx. 04/22 continue tx. 04/23/23 inc mirtazapine 15 hs alp 0.25 prn 04/24/23 inc hs alprazolam 0.5 hs 04/25 continue tx. 04/26 trazodone added back per pt request, remeron d/c. 04/27/23 pt doing better more stable cont plan of care 04/28/2023 Increase Trintellix to 10 mg daily encouragement reassurance regarding upcoming discharge transition Patient educated on: medication risk/benefits and therapeutic strategies Informed Consent: understands Reason for continued inpatient stay Substantial Risk for: inability to function and rapid decompensation Time Spent With Patient Time: Total time managing care of this patient today __25__ minutes.
[2023-04-28 19:54] VITALS: PULSE 68
[2023-04-28] MEDS: ALPRAZolam 0.5 MG TABLET PO (20:50)
[2023-04-28] MEDS: Divalproex Sodium 250 MG TABLET.DR 750 MG PO (20:50)
[2023-04-28] MEDS: traZODone HCL 100 MG TABLET 200 MG PO (20:51)
[2023-04-28] MEDS: Sennosides/Docusate Sodium TABLET 2 TAB PO (20:52)
[2023-04-28] MEDS: Nortriptyline HCl 25 MG CAPSULE 75 MG PO (20:52)
[2023-04-28] MEDS: Nystatin Powder 15 GM BOTTLE 1 APPL TOPICAL (20:54)
[2023-04-28] MEDS: Clotrimazole 1 % Cream 15 GM TUBE 1 APPL TOPICAL (20:54)
[2023-04-28] MEDS: Latanoprost 0.005 % Ophth Sol 2.5 ML DROPS 1 DROP EYE-BOTH (20:54)
[2023-04-28 21:26] VITALS: BP 137/69; PULSE 60; RESP 18; TEMP 35.9; O2SAT 97
[2023-04-29 07:55] VITALS: BP 142/67; PULSE 66; RESP 18; TEMP 36.6; O2SAT 96
[2023-04-29] MEDS: ALPRAZolam 0.25 MG TABLET PO ×2 (08:22→14:54)
[2023-04-29] MEDS: Propranolol HCL 20 MG TABLET PO ×3 (08:23→20:01)
[2023-04-29] MEDS: polyethylene glycoL 3350 17 GM POWD.PACK PO (08:23)
[2023-04-29] MEDS: Clotrimazole 1 % Cream 15 GM TUBE 1 APPL TOPICAL ×2 (08:34→21:13)
[2023-04-29] MEDS: Nystatin Powder 15 GM BOTTLE 1 APPL TOPICAL ×2 (08:35→21:13)
[2023-04-29] MEDS: Vortioxetine Hydrobromide 10 MG TABLET PO (09:24)
[2023-04-29] MEDS: Divalproex Sodium Sprinkles 125 MG CAP.DR.SPR PO (12:18)
[2023-04-29 18:00] VITALS: BP 135/75; PULSE 67; RESP 18; TEMP 36.8; O2SAT 98
[2023-04-29] MEDS: ALPRAZolam 0.5 MG TABLET PO (20:00)
[2023-04-29] MEDS: OLANZapine 2.5 MG TABLET PO (20:00)
[2023-04-29] MEDS: Nortriptyline HCl 25 MG CAPSULE 75 MG PO (20:00)
[2023-04-29] MEDS: traZODone HCL 100 MG TABLET 200 MG PO (20:00)
[2023-04-29] MEDS: Divalproex Sodium 250 MG TABLET.DR 750 MG PO (20:00)
[2023-04-29] MEDS: Acetaminophen 325 MG TABLET 975 MG PO (20:01)
[2023-04-29] MEDS: Ibuprofen 600 MG TABLET PO (20:01)
[2023-04-29] MEDS: Sennosides/Docusate Sodium TABLET 2 TAB PO (20:01)
[2023-04-29] MEDS: Latanoprost 0.005 % Ophth Sol 2.5 ML DROPS 1 DROP EYE-BOTH (21:13)
--- NOTE | 2023-04-29 22:56 | P.PNPSI_ITS ---
Subjective Subjective Date of Service: 04/29/23 Reason For Visit: Depression hopelessness irritability Subjective Notes: Conditional Voluntary Healthcare Proxy: No Interim History: pt has been anxious periods of dysphoria looking forward to discahrge Medication Compliance: Yes Mental Status Exam Mental Status Exam Narrative: Patient Appearance: Well Grooomed and Fatigued Patient Orientation: Person, Place and Situation Level of Consciousness: Awake and Appropriate Patient Behavior: Cooperative and Passive Behavior Comments: Mood Description: Withdrawn and Constricted Affect Description: Constricted and Apprehensive Patient Cognition Impaired: Yes Ability to Follow Directions: Good Speech Pattern: Clear Memory Description: Intact Thought Content: positive for Preoccupation, negative for Suicidal Ideation or negative for Homicidal Ideation Judgement and Insight: Concerns regarding plant that he has been hospital and hopeful for discharge transition Diagnostics Vital Signs (24Hr): Vital Signs - 24 hr 04/29/23 07:55 04/29/23 18:00 Temperature 97.9 F 98.2 F Pulse Rate 66 67 Respiratory Rate 18 18 Blood Pressure 142/67 H 135/75 Pulse Oximetry 96 98 Oxygen Delivery Method Room Air Room Air BMI result Body Mass Index 30.2 Labs 04/09/23 07:59 04/09/23 07:59 Imaging Radiology Impressions: ITS Impressions Chest X-Ray 10/20/22 15:45 IMPRESSION: 1. Low lung volumes with bibasilar linear disc atelectasis versus scarring. 2. No airspace consolidation or effusion. Head CT 11/08/22 12:29 IMPRESSION: No acute intracranial hemorrhage or territorial infarction. Stable chronic postoperative changes with gliosis and encephalomalacia in the right frontal and right temporal lobes. Ex vacuo dilatation of the ventricles and diffuse parenchymal volume loss. Right-sided craniotomy changes. Chest X-Ray 11/12/22 10:32 IMPRESSION: Hypoexpanded lungs with bibasilar platelike atelectasis. Brain MRI 11/12/22 13:15 IMPRESSION: 1. No demonstrated acute intracranial abnormalities. 2. Chronic encephalomalacia of the right temporal, right frontal, and left occipital lobes. Small regions of chronic encephalomalacia in the parasagittal aspects of the bilateral parietal lobes. Moderate underlying microangiopathy and generalized cerebral volume loss. Chest X-Ray 11/14/22 15:52 IMPRESSION: Low lung volumes, bibasilar subsegmental atelectasis and slight elevation of the right hemidiaphragm similar to previous exam. Modified Barium Swallow 11/21/22 15:11 IMPRESSION: Laryngeal penetration on several occasions but no laryngeal aspiration. Mild retention of solid food in the valleculae which cleared with subsequent oral administration of water or thin barium. Correlate with speech therapy results. Orbit CT 01/23/23 14:05 IMPRESSION: - No definite significant intraorbital soft tissue findings to assessment is limited on a noncontrast CT of the orbits. No retrobulbar mass lesions and no cellulitic changes appreciated. - There are large fluid levels within the left maxillary sinus and within the right frontal sinus the can be correlated for clinical signs of acute sinusitis. - A peripherally ossified structure extending from the dorsal margin of the right nasolacrimal duct into the right maxillary sinus is stable when compared to examinations dated back to 08/24/2008 favoring a benign etiology. Cervical Spine CT 02/14/23 22:15 IMPRESSION: 1. No acute intracranial abnormality. Stable postsurgical changes with right frontotemporal encephalomalacia, global volume loss, and extraocular dilatation of the right lateral ventricle. 2. No cervical spine fracture or traumatic malalignment. Head CT 02/14/23 22:15 IMPRESSION: 1. No acute intracranial abnormality. Stable postsurgical changes with right frontotemporal encephalomalacia, global volume loss, and extraocular dilatation of the right lateral ventricle. 2. No cervical spine fracture or traumatic malalignment. Hip/Pelvis X-Ray 02/14/23 22:25 IMPRESSION: Moderate degenerative changes of the right hip with loss of superolateral joint space. Similar chronic posttraumatic deformity of the right femoral neck with chronic foreshortening. Status post left total hip arthroplasty in unchanged alignment however the lack of a crosstable lateral view limits assessment for dislocation. No acute fracture or dislocation appreciated on the available views. Foot X-Ray 02/22/23 13:50 IMPRESSION: * Postsurgical changes of arthrodesis first metatarsophalangeal joint. * There is developed large osteophyte from the head of the first metatarsal protruding laterally abutting the head of the second metatarsal. This might be the source of patient's pain. * Underlying degenerative osteoarthritis. Foot X-Ray 02/23/23 14:11 IMPRESSION: Mild degenerative changes MTP, PIP and DIP joints. No visible acute fracture or dislocation seen. Medications Medications Current Medications Acetaminophen (Acetaminophen 325 Mg Tablet) 975 mg PO Q6H PRN PRN Reason: Headache/Pain Mild Scale (1-3) Last Admin: 04/29/23 20:01 Dose: 975 mg Alprazolam (Alprazolam 0.5 Mg Tablet) 0.5 mg PO BEDTIME [facility] [place] Last Admin: 04/29/23 20:00 Dose: 0.5 mg Alprazolam (Alprazolam 0.25 Mg Tablet) 0.25 mg PO BID@0830,1430 [facility] [place] Last Admin: 04/29/23 14:54 Dose: 0.25 mg Artificial Tears (Artificial Tears 15 Ml Drops) 1 drop EYE-BOTH Q2H PRN PRN Reason: Dry Eyes Last Admin: 04/28/23 21:05 Dose: 1 drop Bisacodyl (Bisacodyl 10 Mg Supp.Rect) 10 mg MO DAILY PRN PRN Reason: Constipation Clotrimazole (Clotrimazole 1 % Cream 15 Gm Tube) 1 appl TOPICAL BID TAZ; Protocol Last Admin: 04/29/23 21:13 Dose: 1 appl Brussels Butter/Zinc Oxide (Brussels Butter/Zinc Oxide Supp.Rect) 1 supp MO BID PRN PRN Reason: Hemorrhoids Divalproex Sodium (Divalproex Sodium 250 Mg Tablet.Dr) 750 mg PO BEDTIME [facility] [place] Last Admin: 04/29/23 20:00 Dose: 750 mg Divalproex Sodium (Divalproex Sodium Sprinkles 125 Mg Cap.Dr.Spr) 125 mg PO DAILY@1200 TAZ Last Admin: 04/29/23 12:18 Dose: 125 mg Guaifenesin/Dextromethorphan (Guaifenesin Dm 100/10/5 Ml 5 Ml Syrup) 5 ml PO Q4H PRN PRN Reason: cough Last Admin: 03/27/23 22:10 Dose: 5 ml Hydrocortisone (Hydrocortisone 1 % Cream 28.35 Gm Tube) 1 appl TOPICAL BID PRN; Protocol PRN Reason: itchy feet Last Admin: 04/12/23 21:27 Dose: 1 appl Hydroxyzine HCl (Hydroxyzine Hcl 25 Mg Tablet) 25 mg PO Q4H PRN PRN Reason: Anxiety Last Admin: 04/28/23 21:44 Dose: 25 mg Ibuprofen (Ibuprofen 600 Mg Tablet) 600 mg PO Q6H PRN PRN Reason: Pain, Moderate(Pain Scale 4-6) Last Admin: 04/29/23 20:01 Dose: 600 mg Latanoprost (Latanoprost 0.005 % Ophth No 2.5 Ml Drops) 1 drop EYE-BOTH BEDTIME TAZ Last Admin: 04/29/23 21:13 Dose: 1 drop Lidocaine (Lidocaine 5 % Ointment 35 Gm) 1 appl TOPICAL Q6H PRN; Protocol PRN Reason: pain r foot Last Admin: 04/27/23 21:01 Dose: 1 appl Magnesium Hydroxide (Milk Of Magnesia 30 Ml Oral.Susp) 30 ml PO BID PRN PRN Reason: constipation, stomach/GI upset Last Admin: 04/06/23 21:24 Dose: 30 ml Nortriptyline HCl (Nortriptyline Hcl 25 Mg Capsule) 75 mg PO BEDTIME TAZ Last Admin: 04/29/23 20:00 Dose: 75 mg Nystatin (Nystatin Powder 15 Gm Bottle) 1 appl TOPICAL BID TAZ; Protocol Last Admin: 04/29/23 21:13 Dose: 1 appl Olanzapine (Olanzapine 2.5 Mg Tablet) 2.5 mg PO Q4H PRN PRN Reason: anxiety/restlessness Last Admin: 04/28/23 03:25 Dose: 2.5 mg Olanzapine (Olanzapine 2.5 Mg Tablet) 2.5 mg PO BEDTIME TAZ Last Admin: 04/29/23 20:00 Dose: 2.5 mg Ondansetron HCl (Ondansetron Odt 4 Mg Tab.Rapdis) 4 mg TRANSLINGU Q6H PRN PRN Reason: Nausea and Vomiting Last Admin: 03/20/23 09:13 Dose: 4 mg Polyethylene Glycol (Polyethylene Glycol 3350 17 Gm Powd.Pack) 17 gm PO DAILY PRN PRN Reason: Constipation Last Admin: 04/29/23 08:23 Dose: 17 gm Propranolol HCl (Propranolol Hcl 20 Mg Tablet) 20 mg PO TID TAZ; Protocol Last Admin: 04/29/23 20:01 Dose: 20 mg Senna/Docusate Sodium (Sennosides/Docusate Sodium Tablet) 2 tab PO BEDTIME TAZ Last Admin: 04/29/23 20:01 Dose: 2 tab Trazodone HCl (Trazodone Hcl 100 Mg Tablet) 200 mg PO BEDTIME TAZ Last Admin: 04/29/23 20:00 Dose: 200 mg Vortioxetine (Vortioxetine Hydrobromide 10 Mg Tablet) 10 mg PO DAILY TAZ Last Admin: 04/29/23 09:24 Dose: 10 mg Zolpidem Tartrate (Zolpidem Tartrate 5 Mg Tablet) 5 mg PO BEDTIME PRN PRN Reason: Insomnia Last Admin: 04/27/23 20:44 Dose: 5 mg Allergies Allergies Allergy/AdvReac Type Severity Reaction Status Date / Time fentanyl [FENTANYL] Allergy Intermediate unknown Verified 04/08/22 07:00 Assessment & Plan Assessment & Plan (1) Major depressive disorder, recurrent severe without psychotic features: Status: Acute Code(s): F33.2 - Major depressive disorder, recurrent severe without psychotic features (2) Cognitive and neurobehavioral dysfunction following brain injury: Status: Acute Code(s): G31.89 - Other specified degenerative diseases of nervous system; F09 - Unspecified mental disorder due to known physiological condition; S06.9X9S - Unspecified intracranial injury with loss of consciousness of unspecified duration, sequela (3) Personality disorder in adult: Status: Acute Code(s): F60.9 - Personality disorder, unspecified Plan ALPRAZOLAM 0.25 B.I.D. 0.5 BEDTIME OLANZAPINE ALSO 3 TIMES A DAY CONTINUE DEPAKOTE START PROPRANOLOL 10 T.I.D. THE PATIENT CONFRONTED REGARDING NEGATIVE TOXIC BEHAVIOR DIFFICULTY COPING AND NEGATIVE COMPLICATIONS TO HIS LIFE IF CONTINUE VERBALLY AGGRESSIVE AND TOXIC BEHAVIOR WITH OTHERS DEVALUATION ENCOURAGE REFLECTION STRESS MANAGEMENT COPING STRATEGIES 03/07 continue same treatment 03/08 continue same treatment 03/09 continue same treatment 03/10/23 Lower alprazolam .125 mg bid hold afternoon olanzapine secondary to slurring oversedation cont propranolol 03/11/23 Pt doing better less sedated struggles to maintain pos attitude 03/13 continue tx. 03/14: stable presentation, no change in mgmt. 03/15: appears sedated. no change in mgmt today. to F/U with attending tomorrow re meds for anxiety. 03/16 continue tx. 03/17 continue tx. 03/18 continue tx. 03/19 continue tx. 03/22 continue tx. 03/23 continue tx. 03/24/2023 Continue treatment plan discharge planning 03/25/2023 Continue plan of care 03/26/2023 Continued discharge planning needs much reassurance 03/27 continue tx. 03/28: Continue treatment plan. 03/29: Continue current treatment plan 03/30 continue tx. 03/31 continue tx. 04/02 no changes in treatment 04/03/2023 Patient more reactive belligerent kicked out at another person and was reactive with staff and aggressive. Seems much more triggered by stimulation difficulty reflecting discussed with patient increasing olanzapine alprazolam for behavioral control 04/07/23 Cont depakote olanzpine alprazolam encourage strategies to deal with triggers d/c planning 04/08/2023 Depakote increased by 125 mg nortriptyline increased continue discharge planning CK CHEM UA CBC 04/09/23 Patient has become increasingly depressed olanzapine Depakote could not effective for dysphoria irritability case reviewed dr nelson consider ect mirtazapine 04/10 Add Ambien 5 mg at hs 04/11: Continue current treatment plan. 04/12: Continue current treatment plan. 04/13: Continue current plan of care. 04/14 cont plan of care 04/15/23 Start trintellix 5mg daily 04/17/23 Continue treatment plan patient was seen 04/16 and 04/17 Mood generally improved less labile future oriented feels better able to try keep his future focus not current triggers in the inpatient setting nortriptyline has been increased 75 mg Trintellix 5 mg 04/19 keep same treatment 04/20/2023 Lower olanzapine 2.5 at bedtime continue p.r.n. 2.5 hopefully will help with feelings of sedation monitor mood 04/21 continue tx. 04/22 continue tx. 04/23/23 inc mirtazapine 15 hs alp 0.25 prn 04/24/23 inc hs alprazolam 0.5 hs 04/25 continue tx. 04/26 trazodone added back per pt request, remeron d/c. 04/27/23 pt doing better more stable cont plan of care 04/28/2023 Increase Trintellix to 10 mg daily encouragement reassurance regarding upcoming discharge transition 04/29/23 some dep sx monitor response to trintellix pressure of potential d/c and mtg for d/c planning Patient educated on: medication risk/benefits and therapeutic strategies Reason for continued inpatient stay Substantial Risk for: inability to function and rapid decompensation Time Spent With Patient Time: Total time managing care of this patient today ____ minutes.
[2023-04-30] MEDS: Acetaminophen 325 MG TABLET 975 MG PO (04:50)
[2023-04-30 09:30] VITALS: BP 128/72; PULSE 68; RESP 18; TEMP 36.8; O2SAT 98
[2023-04-30] MEDS: Propranolol HCL 20 MG TABLET PO ×3 (09:58→20:47)
[2023-04-30] MEDS: ALPRAZolam 0.25 MG TABLET PO ×2 (09:58→15:15)
[2023-04-30] MEDS: Vortioxetine Hydrobromide 10 MG TABLET PO (09:58)
[2023-04-30] MEDS: Nystatin Powder 15 GM BOTTLE 1 APPL TOPICAL ×2 (09:59→20:56)
[2023-04-30] MEDS: Divalproex Sodium Sprinkles 125 MG CAP.DR.SPR PO (11:55)
[2023-04-30 18:00] VITALS: BP 147/78; PULSE 58; RESP 16; TEMP 36.2; O2SAT 98
[2023-04-30] MEDS: Sennosides/Docusate Sodium TABLET 2 TAB PO (20:47)
[2023-04-30] MEDS: OLANZapine 2.5 MG TABLET PO (20:47)
[2023-04-30] MEDS: Nortriptyline HCl 25 MG CAPSULE 75 MG PO (20:47)
[2023-04-30] MEDS: ALPRAZolam 0.5 MG TABLET PO (20:47)
[2023-04-30] MEDS: traZODone HCL 100 MG TABLET 200 MG PO (20:47)
[2023-04-30] MEDS: Divalproex Sodium 250 MG TABLET.DR 750 MG PO (20:47)
[2023-04-30] MEDS: Latanoprost 0.005 % Ophth Sol 2.5 ML DROPS 1 DROP EYE-BOTH (20:51)
[2023-04-30] MEDS: Artificial Tears 15 ML DROPS 1 DROP EYE-BOTH (20:52)
[2023-04-30] MEDS: Lidocaine 5 % Ointment 35 GM 1 APPL TOPICAL (20:57)
[2023-04-30] MEDS: Clotrimazole 1 % Cream 15 GM TUBE 1 APPL TOPICAL (20:57)
--- NOTE | 2023-04-30 22:16 | HO.PSYCHPN ---
Subjective Subjective Date of Service: 04/30/23 Reason For Visit: Depression hopelessness irritability Subjective Notes: Conditional Voluntary Interim History: pt has been somewhat dysphoric anxious periodically overwhelmed with ongoing hospitalization Medication Compliance: Yes Mental Status Exam Mental Status Exam Narrative: Patient Appearance: Well Grooomed and Fatigued Patient Orientation: Person, Place and Situation Level of Consciousness: Awake and Appropriate Patient Behavior: Cooperative and Passive Behavior Comments: Mood Description: Withdrawn and Constricted Affect Description: Constricted and Apprehensive Patient Cognition Impaired: Yes Ability to Follow Directions: Good Speech Pattern: Clear Memory Description: Intact Thought Content: positive for Preoccupation, negative for Suicidal Ideation or negative for Homicidal Ideation Judgement and Insight: Concerns regarding plant that he has been hospital and hopeful for discharge transition Diagnostics Vital Signs (24Hr): Vital Signs - 24 hr 04/30/23 09:30 04/30/23 18:00 Temperature 98.2 F 97.2 F Pulse Rate 68 58 Respiratory Rate 18 16 Blood Pressure 128/72 147/78 H Pulse Oximetry 98 98 Oxygen Delivery Method Room Air Room Air BMI result Body Mass Index 30.2 Labs 04/09/23 07:59 04/09/23 07:59 Imaging Radiology Impressions: ITS Impressions Chest X-Ray 10/20/22 15:45 IMPRESSION: 1. Low lung volumes with bibasilar linear disc atelectasis versus scarring. 2. No airspace consolidation or effusion. Head CT 11/08/22 12:29 IMPRESSION: No acute intracranial hemorrhage or territorial infarction. Stable chronic postoperative changes with gliosis and encephalomalacia in the right frontal and right temporal lobes. Ex vacuo dilatation of the ventricles and diffuse parenchymal volume loss. Right-sided craniotomy changes. Chest X-Ray 11/12/22 10:32 IMPRESSION: Hypoexpanded lungs with bibasilar platelike atelectasis. Brain MRI 11/12/22 13:15 IMPRESSION: 1. No demonstrated acute intracranial abnormalities. 2. Chronic encephalomalacia of the right temporal, right frontal, and left occipital lobes. Small regions of chronic encephalomalacia in the parasagittal aspects of the bilateral parietal lobes. Moderate underlying microangiopathy and generalized cerebral volume loss. Chest X-Ray 11/14/22 15:52 IMPRESSION: Low lung volumes, bibasilar subsegmental atelectasis and slight elevation of the right hemidiaphragm similar to previous exam. Modified Barium Swallow 11/21/22 15:11 IMPRESSION: Laryngeal penetration on several occasions but no laryngeal aspiration. Mild retention of solid food in the valleculae which cleared with subsequent oral administration of water or thin barium. Correlate with speech therapy results. Orbit CT 01/23/23 14:05 IMPRESSION: - No definite significant intraorbital soft tissue findings to assessment is limited on a noncontrast CT of the orbits. No retrobulbar mass lesions and no cellulitic changes appreciated. - There are large fluid levels within the left maxillary sinus and within the right frontal sinus the can be correlated for clinical signs of acute sinusitis. - A peripherally ossified structure extending from the dorsal margin of the right nasolacrimal duct into the right maxillary sinus is stable when compared to examinations dated back to 08/24/2008 favoring a benign etiology. Cervical Spine CT 02/14/23 22:15 IMPRESSION: 1. No acute intracranial abnormality. Stable postsurgical changes with right frontotemporal encephalomalacia, global volume loss, and extraocular dilatation of the right lateral ventricle. 2. No cervical spine fracture or traumatic malalignment. Head CT 02/14/23 22:15 IMPRESSION: 1. No acute intracranial abnormality. Stable postsurgical changes with right frontotemporal encephalomalacia, global volume loss, and extraocular dilatation of the right lateral ventricle. 2. No cervical spine fracture or traumatic malalignment. Hip/Pelvis X-Ray 02/14/23 22:25 IMPRESSION: Moderate degenerative changes of the right hip with loss of superolateral joint space. Similar chronic posttraumatic deformity of the right femoral neck with chronic foreshortening. Status post left total hip arthroplasty in unchanged alignment however the lack of a crosstable lateral view limits assessment for dislocation. No acute fracture or dislocation appreciated on the available views. Foot X-Ray 02/22/23 13:50 IMPRESSION: * Postsurgical changes of arthrodesis first metatarsophalangeal joint. * There is developed large osteophyte from the head of the first metatarsal protruding laterally abutting the head of the second metatarsal. This might be the source of patient's pain. * Underlying degenerative osteoarthritis. Foot X-Ray 02/23/23 14:11 IMPRESSION: Mild degenerative changes MTP, PIP and DIP joints. No visible acute fracture or dislocation seen. Medications Medications Current Medications Acetaminophen (Acetaminophen 325 Mg Tablet) 975 mg PO Q6H PRN PRN Reason: Headache/Pain Mild Scale (1-3) Last Admin: 04/30/23 04:50 Dose: 975 mg Alprazolam (Alprazolam 0.5 Mg Tablet) 0.5 mg PO BEDTIME [facility] Last Admin: 04/30/23 20:47 Dose: 0.5 mg Alprazolam (Alprazolam 0.25 Mg Tablet) 0.25 mg PO BID@0830,1430 [facility] Last Admin: 04/30/23 15:15 Dose: 0.25 mg Artificial Tears (Artificial Tears 15 Ml Drops) 1 drop EYE-BOTH Q2H PRN PRN Reason: Dry Eyes Last Admin: 04/30/23 20:52 Dose: 1 drop Bisacodyl (Bisacodyl 10 Mg Supp.Rect) 10 mg OH DAILY PRN PRN Reason: Constipation Clotrimazole (Clotrimazole 1 % Cream 15 Gm Tube) 1 appl TOPICAL BID TAZ; Protocol Last Admin: 04/30/23 20:57 Dose: 1 appl [place] Butter/Zinc Oxide ([place] Butter/Zinc Oxide Supp.Rect) 1 supp OH BID PRN PRN Reason: Hemorrhoids Divalproex Sodium (Divalproex Sodium 250 Mg Tablet.Dr) 750 mg PO BEDTIME [facility] Last Admin: 04/30/23 20:47 Dose: 750 mg Divalproex Sodium (Divalproex Sodium Sprinkles 125 Mg Cap.Dr.Spr) 125 mg PO DAILY@1200 TAZ Last Admin: 04/30/23 11:55 Dose: 125 mg Guaifenesin/Dextromethorphan (Guaifenesin Dm 100/10/5 Ml 5 Ml Syrup) 5 ml PO Q4H PRN PRN Reason: cough Last Admin: 03/27/23 22:10 Dose: 5 ml Hydrocortisone (Hydrocortisone 1 % Cream 28.35 Gm Tube) 1 appl TOPICAL BID PRN; Protocol PRN Reason: itchy feet Last Admin: 04/12/23 21:27 Dose: 1 appl Hydroxyzine HCl (Hydroxyzine Hcl 25 Mg Tablet) 25 mg PO Q4H PRN PRN Reason: Anxiety Last Admin: 04/28/23 21:44 Dose: 25 mg Latanoprost (Latanoprost 0.005 % Ophth No 2.5 Ml Drops) 1 drop EYE-BOTH BEDTIME TAZ Last Admin: 04/30/23 20:51 Dose: 1 drop Lidocaine (Lidocaine 5 % Ointment 35 Gm) 1 appl TOPICAL Q6H PRN; Protocol PRN Reason: pain r foot Last Admin: 04/30/23 20:57 Dose: 1 appl Magnesium Hydroxide (Milk Of Magnesia 30 Ml Oral.Susp) 30 ml PO BID PRN PRN Reason: constipation, stomach/GI upset Last Admin: 04/06/23 21:24 Dose: 30 ml Nortriptyline HCl (Nortriptyline Hcl 25 Mg Capsule) 75 mg PO BEDTIME TAZ Last Admin: 04/30/23 20:47 Dose: 75 mg Nystatin (Nystatin Powder 15 Gm Bottle) 1 appl TOPICAL BID TAZ; Protocol Last Admin: 04/30/23 20:56 Dose: 1 appl Olanzapine (Olanzapine 2.5 Mg Tablet) 2.5 mg PO Q4H PRN PRN Reason: anxiety/restlessness Last Admin: 04/28/23 03:25 Dose: 2.5 mg Olanzapine (Olanzapine 2.5 Mg Tablet) 2.5 mg PO BEDTIME TAZ Last Admin: 04/30/23 20:47 Dose: 2.5 mg Ondansetron HCl (Ondansetron Odt 4 Mg Tab.Rapdis) 4 mg TRANSLINGU Q6H PRN PRN Reason: Nausea and Vomiting Last Admin: 03/20/23 09:13 Dose: 4 mg Polyethylene Glycol (Polyethylene Glycol 3350 17 Gm Powd.Pack) 17 gm PO DAILY PRN PRN Reason: Constipation Last Admin: 04/29/23 08:23 Dose: 17 gm Propranolol HCl (Propranolol Hcl 20 Mg Tablet) 20 mg PO TID TAZ; Protocol Last Admin: 04/30/23 20:47 Dose: 20 mg Senna/Docusate Sodium (Sennosides/Docusate Sodium Tablet) 2 tab PO BEDTIME TAZ Last Admin: 04/30/23 20:47 Dose: 2 tab Trazodone HCl (Trazodone Hcl 100 Mg Tablet) 200 mg PO BEDTIME TAZ Last Admin: 04/30/23 20:47 Dose: 200 mg Vortioxetine (Vortioxetine Hydrobromide 10 Mg Tablet) 10 mg PO DAILY TAZ Last Admin: 04/30/23 09:58 Dose: 10 mg Allergies Allergies Allergy/AdvReac Type Severity Reaction Status Date / Time fentanyl [FENTANYL] Allergy Intermediate unknown Verified 04/08/22 07:00 Assessment & Plan Assessment & Plan (1) Major depressive disorder, recurrent severe without psychotic features: Status: Acute Code(s): F33.2 - Major depressive disorder, recurrent severe without psychotic features (2) Cognitive and neurobehavioral dysfunction following brain injury: Status: Acute Code(s): G31.89 - Other specified degenerative diseases of nervous system; F09 - Unspecified mental disorder due to known physiological condition; S06.9X9S - Unspecified intracranial injury with loss of consciousness of unspecified duration, sequela (3) Personality disorder in adult: Status: Acute Code(s): F60.9 - Personality disorder, unspecified Plan ALPRAZOLAM 0.25 B.I.D. 0.5 BEDTIME OLANZAPINE ALSO 3 TIMES A DAY CONTINUE DEPAKOTE START PROPRANOLOL 10 T.I.D. THE PATIENT CONFRONTED REGARDING NEGATIVE TOXIC BEHAVIOR DIFFICULTY COPING AND NEGATIVE COMPLICATIONS TO HIS LIFE IF CONTINUE VERBALLY AGGRESSIVE AND TOXIC BEHAVIOR WITH OTHERS DEVALUATION ENCOURAGE REFLECTION STRESS MANAGEMENT COPING STRATEGIES 03/07 continue same treatment 03/08 continue same treatment 03/09 continue same treatment 03/10/23 Lower alprazolam .125 mg bid hold afternoon olanzapine secondary to slurring oversedation cont propranolol 03/11/23 Pt doing better less sedated struggles to maintain pos attitude 03/13 continue tx. 03/14: stable presentation, no change in mgmt. 03/15: appears sedated. no change in mgmt today. to F/U with attending tomorrow re meds for anxiety. 03/16 continue tx. 03/17 continue tx. 03/18 continue tx. 03/19 continue tx. 03/22 continue tx. 03/23 continue tx. 03/24/2023 Continue treatment plan discharge planning 03/25/2023 Continue plan of care 03/26/2023 Continued discharge planning needs much reassurance 03/27 continue tx. 03/28: Continue treatment plan. 03/29: Continue current treatment plan 03/30 continue tx. 03/31 continue tx. 04/02 no changes in treatment 04/03/2023 Patient more reactive belligerent kicked out at another person and was reactive with staff and aggressive. Seems much more triggered by stimulation difficulty reflecting discussed with patient increasing olanzapine alprazolam for behavioral control 04/07/23 Cont depakote olanzpine alprazolam encourage strategies to deal with triggers d/c planning 04/08/2023 Depakote increased by 125 mg nortriptyline increased continue discharge planning CK CHEM UA CBC 04/09/23 Patient has become increasingly depressed olanzapine Depakote could not effective for dysphoria irritability case reviewed dr nelson consider ect mirtazapine 04/10 Add Ambien 5 mg at hs 04/11: Continue current treatment plan. 04/12: Continue current treatment plan. 04/13: Continue current plan of care. 04/14 cont plan of care 04/15/23 Start trintellix 5mg daily 04/17/23 Continue treatment plan patient was seen 04/16 and 04/17 Mood generally improved less labile future oriented feels better able to try keep his future focus not current triggers in the inpatient setting nortriptyline has been increased 75 mg Trintellix 5 mg 04/19 keep same treatment 04/20/2023 Lower olanzapine 2.5 at bedtime continue p.r.n. 2.5 hopefully will help with feelings of sedation monitor mood 04/21 continue tx. 04/22 continue tx. 04/23/23 inc mirtazapine 15 hs alp 0.25 prn 04/24/23 inc hs alprazolam 0.5 hs 04/25 continue tx. 04/26 trazodone added back per pt request, remeron d/c. 04/27/23 pt doing better more stable cont plan of care 04/28/2023 Increase Trintellix to 10 mg daily encouragement reassurance regarding upcoming discharge transition 04/29/23 some dep sx monitor response to trintellix pressure of potential d/c and mtg for d/c planning 04/30/23 cont trintellix nortrip depakote Patient educated on: diagnosis, medication risk/benefits and therapeutic strategies Reason for continued inpatient stay Substantial Risk for: inability to function and rapid decompensation Time Spent With Patient Time: Total time managing care of this patient today ____ minutes.
[2023-05-01] MEDS: ALPRAZolam 0.25 MG TABLET 0.125 MG PO (03:29)
[2023-05-01] MEDS: hydrOXYzine HCL 25 MG TABLET PO (03:30)
[2023-05-01 08:00] VITALS: BP 140/68; PULSE 68; RESP 18; TEMP 36.8; O2SAT 97
[2023-05-01] MEDS: Propranolol HCL 20 MG TABLET PO ×3 (08:00→20:39)
[2023-05-01] MEDS: ALPRAZolam 0.25 MG TABLET PO ×2 (08:00→14:46)
[2023-05-01] MEDS: Vortioxetine Hydrobromide 10 MG TABLET PO (08:28)
[2023-05-01] MEDS: Divalproex Sodium Sprinkles 125 MG CAP.DR.SPR PO (11:17)
[2023-05-01 18:00] VITALS: BP 139/80; PULSE 62; RESP 18; TEMP 36.3; O2SAT 98
[2023-05-01] MEDS: ALPRAZolam 0.5 MG TABLET PO (20:39)
[2023-05-01] MEDS: traZODone HCL 100 MG TABLET 200 MG PO (20:39)
[2023-05-01] MEDS: OLANZapine 2.5 MG TABLET PO (20:39)
[2023-05-01] MEDS: Divalproex Sodium 250 MG TABLET.DR 750 MG PO (20:40)
[2023-05-01] MEDS: Sennosides/Docusate Sodium TABLET 2 TAB PO (20:40)
[2023-05-01] MEDS: Nortriptyline HCl 25 MG CAPSULE 75 MG PO (20:40)
[2023-05-01] MEDS: Acetaminophen 325 MG TABLET 975 MG PO (20:40)
[2023-05-01] MEDS: Latanoprost 0.005 % Ophth Sol 2.5 ML DROPS 1 DROP EYE-BOTH (20:45)
[2023-05-01] MEDS: Nystatin Powder 15 GM BOTTLE 1 APPL TOPICAL (20:45)
[2023-05-01] MEDS: Artificial Tears 15 ML DROPS 1 DROP EYE-BOTH (20:49)
[2023-05-02 09:09] VITALS: BP 141/76; PULSE 74; RESP 18; TEMP 35.9; O2SAT 95
[2023-05-02] MEDS: ALPRAZolam 0.25 MG TABLET PO ×2 (09:21→14:14)
[2023-05-02] MEDS: Vortioxetine Hydrobromide 10 MG TABLET PO (09:21)
[2023-05-02] MEDS: Propranolol HCL 20 MG TABLET PO ×3 (09:21→20:59)
[2023-05-02] MEDS: Acetaminophen 325 MG TABLET 975 MG PO (09:36)
--- NOTE | 2023-05-02 10:46 | P.PNPSI_ITS ---
Subjective Subjective Date of Service: 05/02/23 Reason For Visit: Depression hopelessness irritability Subjective Notes: Conditional Voluntary Healthcare Proxy: No Guardianship: No Medical Problems Affecting Mental Status: No Interim History: Patient was seen and discussed in rounds today. Records and plans were reviewed. He has been stable but a little irritable. He is getting anxious about his upcoming discharge into a home where bed has been secured. No complaints otherwise. Eating and sleeping adequately. No changes were made today Medication Compliance: Yes Side effects from medications: No Attending Groups: Intermittent Review of Systems Review of Systems Yes all other systems are reviewed and are negative Mental Status Exam Mental Status Exam Narrative: Patient Appearance: Well Grooomed and Fatigued Patient Orientation: Person, Place and Situation Level of Consciousness: Awake and Appropriate Patient Behavior: Cooperative and Passive Behavior Comments: Mood Description: Withdrawn and Constricted Affect Description: Constricted and Apprehensive Patient Cognition Impaired: Yes Ability to Follow Directions: Good Speech Pattern: Clear Memory Description: Intact Thought Content: positive for Preoccupation, negative for Suicidal Ideation or negative for Homicidal Ideation Judgement and Insight: Concerns regarding plant that he has been hospital and hopeful for discharge tra nsition Diagnostics Vital Signs (24Hr): Vital Signs - 24 hr 05/01/23 18:00 05/02/23 09:09 Temperature 97.4 F 96.7 F L Pulse Rate 62 74 Respiratory Rate 18 18 Blood Pressure 139/80 141/76 H Pulse Oximetry 98 95 Oxygen Delivery Method Room Air Room Air BMI result Body Mass Index 30.2 Labs 04/09/23 07:59 04/09/23 07:59 Imaging Radiology Impressions: ITS Impressions Chest X-Ray 10/20/22 15:45 IMPRESSION: 1. Low lung volumes with bibasilar linear disc atelectasis versus scarring. 2. No airspace consolidation or effusion. Head CT 11/08/22 12:29 IMPRESSION: No acute intracranial hemorrhage or territorial infarction. Stable chronic postoperative changes with gliosis and encephalomalacia in the right frontal and right temporal lobes. Ex vacuo dilatation of the ventricles and diffuse parenchymal volume loss. Right-sided craniotomy changes. Chest X-Ray 11/12/22 10:32 IMPRESSION: Hypoexpanded lungs with bibasilar platelike atelectasis. Brain MRI 11/12/22 13:15 IMPRESSION: 1. No demonstrated acute intracranial abnormalities. 2. Chronic encephalomalacia of the right temporal, right frontal, and left occipital lobes. Small regions of chronic encephalomalacia in the parasagittal aspects of the bilateral parietal lobes. Moderate underlying microangiopathy and generalized cerebral volume loss. Chest X-Ray 11/14/22 15:52 IMPRESSION: Low lung volumes, bibasilar subsegmental atelectasis and slight elevation of the right hemidiaphragm similar to previous exam. Modified Barium Swallow 11/21/22 15:11 IMPRESSION: Laryngeal penetration on several occasions but no laryngeal aspiration. Mild retention of solid food in the valleculae which cleared with subsequent oral administration of water or thin barium. Correlate with speech therapy results. Orbit CT 01/23/23 14:05 IMPRESSION: - No definite significant intraorbital soft tissue findings to assessment is limited on a noncontrast CT of the orbits. No retrobulbar mass lesions and no cellulitic changes appreciated. - There are large fluid levels within the left maxillary sinus and within the right frontal sinus the can be correlated for clinical signs of acute sinusitis. - A peripherally ossified structure extending from the dorsal margin of the right nasolacrimal duct into the right maxillary sinus is stable when compared to examinations dated back to 08/24/2008 favoring a benign etiology. Cervical Spine CT 02/14/23 22:15 IMPRESSION: 1. No acute intracranial abnormality. Stable postsurgical changes with right frontotemporal encephalomalacia, global volume loss, and extraocular dilatation of the right lateral ventricle. 2. No cervical spine fracture or traumatic malalignment. Head CT 02/14/23 22:15 IMPRESSION: 1. No acute intracranial abnormality. Stable postsurgical changes with right frontotemporal encephalomalacia, global volume loss, and extraocular dilatation of the right lateral ventricle. 2. No cervical spine fracture or traumatic malalignment. Hip/Pelvis X-Ray 02/14/23 22:25 IMPRESSION: Moderate degenerative changes of the right hip with loss of superolateral joint space. Similar chronic posttraumatic deformity of the right femoral neck with chronic foreshortening. Status post left total hip arthroplasty in unchanged alignment however the lack of a crosstable lateral view limits assessment for dislocation. No acute fracture or dislocation appreciated on the available views. Foot X-Ray 02/22/23 13:50 IMPRESSION: * Postsurgical changes of arthrodesis first metatarsophalangeal joint. * There is developed large osteophyte from the head of the first metatarsal protruding laterally abutting the head of the second metatarsal. This might be the source of patient's pain. * Underlying degenerative osteoarthritis. Foot X-Ray 02/23/23 14:11 IMPRESSION: Mild degenerative changes MTP, PIP and DIP joints. No visible acute fracture or dislocation seen. Medications Medications Current Medications Acetaminophen (Acetaminophen 325 Mg Tablet) 975 mg PO Q6H PRN PRN Reason: Headache/Pain Mild Scale (1-3) Last Admin: 05/02/23 09:36 Dose: 975 mg Alprazolam (Alprazolam 0.5 Mg Tablet) 0.5 mg PO BEDTIME [facility] Last Admin: 05/01/23 20:39 Dose: 0.5 mg Alprazolam (Alprazolam 0.25 Mg Tablet) 0.25 mg PO BID@0830,1430 [facility] Last Admin: 05/02/23 09:21 Dose: 0.25 mg Alprazolam (Alprazolam 0.25 Mg Tablet) 0.125 mg PO TID PRN PRN Reason: anxiety/restlessness Last Admin: 05/01/23 03:29 Dose: 0.125 mg Artificial Tears (Artificial Tears 15 Ml Drops) 1 drop EYE-BOTH Q2H PRN PRN Reason: Dry Eyes Last Admin: 05/01/23 20:49 Dose: 1 drop Bisacodyl (Bisacodyl 10 Mg Supp.Rect) 10 mg IN DAILY PRN PRN Reason: Constipation Clotrimazole (Clotrimazole 1 % Cream 15 Gm Tube) 1 appl TOPICAL BID [facility]; Protocol Last Admin: 05/02/23 09:21 Dose: Not Given [place] Butter/Zinc Oxide ([place] Butter/Zinc Oxide Supp.Rect) 1 supp IN BID PRN PRN Reason: Hemorrhoids Divalproex Sodium (Divalproex Sodium 250 Mg Tablet.Dr) 750 mg PO BEDTIME [facility] Last Admin: 05/01/23 20:40 Dose: 750 mg Divalproex Sodium (Divalproex Sodium Sprinkles 125 Mg Cap.DrIsaacSpr) 125 mg PO DAILY@1200 [facility] Last Admin: 05/01/23 11:17 Dose: 125 mg Guaifenesin/Dextromethorphan (Guaifenesin Dm 100/10/5 Ml 5 Ml Syrup) 5 ml PO Q4H PRN PRN Reason: cough Last Admin: 03/27/23 22:10 Dose: 5 ml Hydrocortisone (Hydrocortisone 1 % Cream 28.35 Gm Tube) 1 appl TOPICAL BID PRN; Protocol PRN Reason: itchy feet Last Admin: 04/12/23 21:27 Dose: 1 appl Hydroxyzine HCl (Hydroxyzine Hcl 25 Mg Tablet) 25 mg PO Q4H PRN PRN Reason: Anxiety Last Admin: 05/01/23 03:30 Dose: 25 mg Latanoprost (Latanoprost 0.005 % Ophth No 2.5 Ml Drops) 1 drop EYE-BOTH BEDTIME [facility] Last Admin: 05/01/23 20:45 Dose: 1 drop Lidocaine (Lidocaine 5 % Ointment 35 Gm) 1 appl TOPICAL Q6H PRN; Protocol PRN Reason: pain r foot Last Admin: 04/30/23 20:57 Dose: 1 appl Magnesium Hydroxide (Milk Of Magnesia 30 Ml Oral.Susp) 30 ml PO BID PRN PRN Reason: constipation, stomach/GI upset Last Admin: 04/06/23 21:24 Dose: 30 ml Nortriptyline HCl (Nortriptyline Hcl 25 Mg Capsule) 75 mg PO BEDTIME [facility] Last Admin: 05/01/23 20:40 Dose: 75 mg Nystatin (Nystatin Powder 15 Gm Bottle) 1 appl TOPICAL BID [facility]; Protocol Last Admin: 05/02/23 09:21 Dose: Not Given Olanzapine (Olanzapine 2.5 Mg Tablet) 2.5 mg PO Q4H PRN PRN Reason: anxiety/restlessness Last Admin: 04/28/23 03:25 Dose: 2.5 mg Olanzapine (Olanzapine 2.5 Mg Tablet) 2.5 mg PO BEDTIME [facility] Last Admin: 05/01/23 20:39 Dose: 2.5 mg Ondansetron HCl (Ondansetron Odt 4 Mg Tab.Rapdis) 4 mg TRANSLINGU Q6H PRN PRN Reason: Nausea and Vomiting Last Admin: 03/20/23 09:13 Dose: 4 mg Polyethylene Glycol (Polyethylene Glycol 3350 17 Gm Powd.Pack) 17 gm PO DAILY PRN PRN Reason: Constipation Last Admin: 04/29/23 08:23 Dose: 17 gm Propranolol HCl (Propranolol Hcl 20 Mg Tablet) 20 mg PO TID [facility]; Protocol Last Admin: 05/02/23 09:21 Dose: 20 mg Senna/Docusate Sodium (Sennosides/Docusate Sodium Tablet) 2 tab PO BEDTIME [facility] Last Admin: 05/01/23 20:40 Dose: 2 tab Trazodone HCl (Trazodone Hcl 100 Mg Tablet) 200 mg PO BEDTIME [facility] Last Admin: 05/01/23 20:39 Dose: 200 mg Vortioxetine (Vortioxetine Hydrobromide 10 Mg Tablet) 10 mg PO DAILY [facility] Last Admin: 05/02/23 09:21 Dose: 10 mg Allergies Allergies Allergy/AdvReac Type Severity Reaction Status Date / Time fentanyl [FENTANYL] Allergy Intermediate unknown Verified 04/08/22 07:00 Assessment & Plan Assessment & Plan (1) Major depressive disorder, recurrent severe without psychotic features: Status: Acute Code(s): F33.2 - Major depressive disorder, recurrent severe without psychotic features (2) Cognitive and neurobehavioral dysfunction following brain injury: Status: Acute Code(s): G31.89 - Other specified degenerative diseases of nervous system; F09 - Unspecified mental disorder due to known physiological condition; S06.9X9S - Unspecified intracranial injury with loss of consciousness of unspecified duration, sequela (3) Personality disorder in adult: Status: Acute Code(s): F60.9 - Personality disorder, unspecified Plan ALPRAZOLAM 0.25 B.I.D. 0.5 BEDTIME OLANZAPINE ALSO 3 TIMES A DAY CONTINUE DEPAKOTE START PROPRANOLOL 10 T.I.D. THE PATIENT CONFRONTED REGARDING NEGATIVE TOXIC BEHAVIOR DIFFICULTY COPING AND NEGATIVE COMPLICATIONS TO HIS LIFE IF CONTINUE VERBALLY AGGRESSIVE AND TOXIC BEHAVIOR WITH OTHERS DEVALUATION ENCOURAGE REFLECTION STRESS MANAGEMENT COPING STRATEGIES 03/07 continue same treatment 03/08 continue same treatment 03/09 continue same treatment 03/10/23 Lower alprazolam .125 mg bid hold afternoon olanzapine secondary to slurring oversedation cont propranolol 03/11/23 Pt doing better less sedated struggles to maintain pos attitude 03/13 continue tx. 03/14: stable presentation, no change in mgmt. 03/15: appears sedated. no change in mgmt today. to F/U with attending tomorrow re meds for anxiety. 03/16 continue tx. 03/17 continue tx. 03/18 continue tx. 03/19 continue tx. 03/22 continue tx. 03/23 continue tx. 03/24/2023 Continue treatment plan discharge planning 03/25/2023 Continue plan of care 03/26/2023 Continued discharge planning needs much reassurance 03/27 continue tx. 03/28: Continue treatment plan. 03/29: Continue current treatment plan 03/30 continue tx. 03/31 continue tx. 04/02 no changes in treatment 04/03/2023 Patient more reactive belligerent kicked out at another person and was reactive with staff and aggressive. Seems much more triggered by stimulation difficulty reflecting discussed with patient increasing olanzapine alprazolam for behavioral control 04/07/23 Cont depakote olanzpine alprazolam encourage strategies to deal with triggers d/c planning 04/08/2023 Depakote increased by 125 mg nortriptyline increased continue discharge planning CK CHEM UA CBC 04/09/23 Patient has become increasingly depressed olanzapine Depakote could not effective for dysphoria irritability case reviewed dr nelson consider ect mirtazapine 04/10 Add Ambien 5 mg at hs 04/11: Continue current treatment plan. 04/12: Continue current treatment plan. 04/13: Continue current plan of care. 04/14 cont plan of care 04/15/23 Start trintellix 5mg daily 04/17/23 Continue treatment plan patient was seen 04/16 and 04/17 Mood generally improved less labile future oriented feels better able to try keep his future focus not current triggers in the inpatient setting nortriptyline has been increased 75 mg Trintellix 5 mg 04/19 keep same treatment 04/20/2023 Lower olanzapine 2.5 at bedtime continue p.r.n. 2.5 hopefully will help with feelings of sedation monitor mood 04/21 continue tx. 04/22 continue tx. 04/23/23 inc mirtazapine 15 hs alp 0.25 prn 04/24/23 inc hs alprazolam 0.5 hs 04/25 continue tx. 04/26 trazodone added back per pt request, remeron d/c. 04/27/23 pt doing better more stable cont plan of care 04/28/2023 Increase Trintellix to 10 mg daily encouragement reassurance regarding upcoming discharge transition 04/29/23 some dep sx monitor response to trintellix pressure of potential d/c and mtg for d/c planning 04/30/23 cont trintellix nortrip depakote 05/02: Continue current regimen and plans. Reason for continued inpatient stay Substantial Risk for: inability to function Time Spent With Patient Time: Total time managing care of this patient today ____ minutes.
[2023-05-02] MEDS: Divalproex Sodium Sprinkles 125 MG CAP.DR.SPR PO (14:14)
[2023-05-02 14:58] VITALS: BP 127/77; PULSE 66
[2023-05-02 18:00] VITALS: BP 165/78; PULSE 62; RESP 18; TEMP 37; O2SAT 98
[2023-05-02] MEDS: Divalproex Sodium 250 MG TABLET.DR 750 MG PO (20:58)
[2023-05-02] MEDS: ALPRAZolam 0.5 MG TABLET PO (20:59)
[2023-05-02] MEDS: traZODone HCL 100 MG TABLET 200 MG PO (20:59)
[2023-05-02] MEDS: Sennosides/Docusate Sodium TABLET 2 TAB PO (20:59)
[2023-05-02] MEDS: Nortriptyline HCl 25 MG CAPSULE 75 MG PO (20:59)
[2023-05-02] MEDS: OLANZapine 2.5 MG TABLET PO (20:59)
[2023-05-02] MEDS: Artificial Tears 15 ML DROPS 1 DROP EYE-BOTH (21:02)
[2023-05-02] MEDS: Latanoprost 0.005 % Ophth Sol 2.5 ML DROPS 1 DROP EYE-BOTH (21:02)
[2023-05-02] MEDS: Nystatin Powder 15 GM BOTTLE 1 APPL TOPICAL (21:02)
[2023-05-03 08:15] VITALS: BP 158/82; PULSE 69; RESP 18; TEMP 36.2; O2SAT 97
[2023-05-03] MEDS: Propranolol HCL 20 MG TABLET PO ×3 (08:18→20:48)
[2023-05-03] MEDS: ALPRAZolam 0.25 MG TABLET PO ×2 (08:18→15:42)
[2023-05-03] MEDS: Vortioxetine Hydrobromide 10 MG TABLET PO (08:18)
--- NOTE | 2023-05-03 10:23 | HO.PSYCHPN ---
Subjective Subjective Date of Service: 05/03/23 Reason For Visit: Depression hopelessness irritability Subjective Notes: Conditional Voluntary Healthcare Proxy: No Guardianship: No Medical Problems Affecting Mental Status: No Interim History: Patient was seen and discussed in rounds today. Records and plans were reviewed. He has been stable, mostly in his room, attending some groups. He is awaiting transfer to his new placement which has been secured and is looking forward to it. Eating and sleeping well. No complaints. No changes were made Medication Compliance: Yes Side effects from medications: No Attending Groups: Intermittent Mental Status Exam Mental Status Exam Narrative: Patient Appearance: Well Grooomed and Fatigued Patient Orientation: Person, Place and Situation Level of Consciousness: Awake and Appropriate Patient Behavior: Cooperative and Passive Behavior Comments: Mood Description: Withdrawn and Constricted Affect Description: Constricted and Apprehensive Patient Cognition Impaired: Yes Ability to Follow Directions: Good Speech Pattern: Clear Memory Description: Intact Thought Content: positive for Preoccupation, negative for Suicidal Ideation or negative for Homicidal Ideation Judgement and Insight: Concerns regarding plant that he has been hospital and hopeful for discharge transition Diagnostics Vital Signs (24Hr): Vital Signs - 24 hr 05/02/23 14:58 05/02/23 18:00 05/03/23 08:15 Temperature 98.6 F 97.1 F Pulse Rate 66 62 69 Respiratory Rate 18 18 Blood Pressure 127/77 165/78 H 158/82 H Pulse Oximetry 98 97 Oxygen Delivery Method Room Air Room Air BMI result Body Mass Index 30.2 Labs 04/09/23 07:59 04/09/23 07:59 Imaging Radiology Impressions: ITS Impressions Chest X-Ray 10/20/22 15:45 IMPRESSION: 1. Low lung volumes with bibasilar linear disc atelectasis versus scarring. 2. No airspace consolidation or effusion. Head CT 11/08/22 12:29 IMPRESSION: No acute intracranial hemorrhage or territorial infarction. Stable chronic postoperative changes with gliosis and encephalomalacia in the right frontal and right temporal lobes. Ex vacuo dilatation of the ventricles and diffuse parenchymal volume loss. Right-sided craniotomy changes. Chest X-Ray 11/12/22 10:32 IMPRESSION: Hypoexpanded lungs with bibasilar platelike atelectasis. Brain MRI 11/12/22 13:15 IMPRESSION: 1. No demonstrated acute intracranial abnormalities. 2. Chronic encephalomalacia of the right temporal, right frontal, and left occipital lobes. Small regions of chronic encephalomalacia in the parasagittal aspects of the bilateral parietal lobes. Moderate underlying microangiopathy and generalized cerebral volume loss. Chest X-Ray 11/14/22 15:52 IMPRESSION: Low lung volumes, bibasilar subsegmental atelectasis and slight elevation of the right hemidiaphragm similar to previous exam. Modified Barium Swallow 11/21/22 15:11 IMPRESSION: Laryngeal penetration on several occasions but no laryngeal aspiration. Mild retention of solid food in the valleculae which cleared with subsequent oral administration of water or thin barium. Correlate with speech therapy results. Orbit CT 01/23/23 14:05 IMPRESSION: - No definite significant intraorbital soft tissue findings to assessment is limited on a noncontrast CT of the orbits. No retrobulbar mass lesions and no cellulitic changes appreciated. - There are large fluid levels within the left maxillary sinus and within the right frontal sinus the can be correlated for clinical signs of acute sinusitis. - A peripherally ossified structure extending from the dorsal margin of the right nasolacrimal duct into the right maxillary sinus is stable when compared to examinations dated back to 08/24/2008 favoring a benign etiology. Cervical Spine CT 02/14/23 22:15 IMPRESSION: 1. No acute intracranial abnormality. Stable postsurgical changes with right frontotemporal encephalomalacia, global volume loss, and extraocular dilatation of the right lateral ventricle. 2. No cervical spine fracture or traumatic malalignment. Head CT 02/14/23 22:15 IMPRESSION: 1. No acute intracranial abnormality. Stable postsurgical changes with right frontotemporal encephalomalacia, global volume loss, and extraocular dilatation of the right lateral ventricle. 2. No cervical spine fracture or traumatic malalignment. Hip/Pelvis X-Ray 02/14/23 22:25 IMPRESSION: Moderate degenerative changes of the right hip with loss of superolateral joint space. Similar chronic posttraumatic deformity of the right femoral neck with chronic foreshortening. Status post left total hip arthroplasty in unchanged alignment however the lack of a crosstable lateral view limits assessment for dislocation. No acute fracture or dislocation appreciated on the available views. Foot X-Ray 02/22/23 13:50 IMPRESSION: * Postsurgical changes of arthrodesis first metatarsophalangeal joint. * There is developed large osteophyte from the head of the first metatarsal protruding laterally abutting the head of the second metatarsal. This might be the source of patient's pain. * Underlying degenerative osteoarthritis. Foot X-Ray 02/23/23 14:11 IMPRESSION: Mild degenerative changes MTP, PIP and DIP joints. No visible acute fracture or dislocation seen. Medications Medications Current Medications Acetaminophen (Acetaminophen 325 Mg Tablet) 975 mg PO Q6H PRN PRN Reason: Headache/Pain Mild Scale (1-3) Last Admin: 05/02/23 09:36 Dose: 975 mg Alprazolam (Alprazolam 0.5 Mg Tablet) 0.5 mg PO BEDTIME [facility] Last Admin: 05/02/23 20:59 Dose: 0.5 mg Alprazolam (Alprazolam 0.25 Mg Tablet) 0.25 mg PO BID@0830,1430 [facility] Last Admin: 05/03/23 08:18 Dose: 0.25 mg Alprazolam (Alprazolam 0.25 Mg Tablet) 0.125 mg PO TID PRN PRN Reason: anxiety/restlessness Last Admin: 05/01/23 03:29 Dose: 0.125 mg Artificial Tears (Artificial Tears 15 Ml Drops) 1 drop EYE-BOTH Q2H PRN PRN Reason: Dry Eyes Last Admin: 05/02/23 21:02 Dose: 1 drop Bisacodyl (Bisacodyl 10 Mg Supp.Rect) 10 mg ND DAILY PRN PRN Reason: Constipation Clotrimazole (Clotrimazole 1 % Cream 15 Gm Tube) 1 appl TOPICAL BID [facility]; Protocol Last Admin: 05/02/23 21:07 Dose: Not Given Karval Butter/Zinc Oxide (Karval Butter/Zinc Oxide Supp.Rect) 1 supp ND BID PRN PRN Reason: Hemorrhoids Divalproex Sodium (Divalproex Sodium 250 Mg Tablet.) 750 mg PO BEDTIME [facility] Last Admin: 05/02/23 20:58 Dose: 750 mg Divalproex Sodium (Divalproex Sodium Sprinkles 125 Mg Cap.DrIsaacSpr) 125 mg PO DAILY@1200 [facility] Last Admin: 05/02/23 14:14 Dose: 125 mg Guaifenesin/Dextromethorphan (Guaifenesin Dm 100/10/5 Ml 5 Ml Syrup) 5 ml PO Q4H PRN PRN Reason: cough Last Admin: 03/27/23 22:10 Dose: 5 ml Hydrocortisone (Hydrocortisone 1 % Cream 28.35 Gm Tube) 1 appl TOPICAL BID PRN; Protocol PRN Reason: itchy feet Last Admin: 04/12/23 21:27 Dose: 1 appl Hydroxyzine HCl (Hydroxyzine Hcl 25 Mg Tablet) 25 mg PO Q4H PRN PRN Reason: Anxiety Last Admin: 05/01/23 03:30 Dose: 25 mg Latanoprost (Latanoprost 0.005 % Ophth No 2.5 Ml Drops) 1 drop EYE-BOTH BEDTIME [facility] Last Admin: 05/02/23 21:02 Dose: 1 drop Lidocaine (Lidocaine 5 % Ointment 35 Gm) 1 appl TOPICAL Q6H PRN; Protocol PRN Reason: pain r foot Last Admin: 04/30/23 20:57 Dose: 1 appl Magnesium Hydroxide (Milk Of Magnesia 30 Ml Oral.Susp) 30 ml PO BID PRN PRN Reason: constipation, stomach/GI upset Last Admin: 04/06/23 21:24 Dose: 30 ml Nortriptyline HCl (Nortriptyline Hcl 25 Mg Capsule) 75 mg PO BEDTIME [facility] Last Admin: 05/02/23 20:59 Dose: 75 mg Nystatin (Nystatin Powder 15 Gm Bottle) 1 appl TOPICAL BID [facility]; Protocol Last Admin: 05/02/23 21:02 Dose: 1 appl Olanzapine (Olanzapine 2.5 Mg Tablet) 2.5 mg PO Q4H PRN PRN Reason: anxiety/restlessness Last Admin: 04/28/23 03:25 Dose: 2.5 mg Olanzapine (Olanzapine 2.5 Mg Tablet) 2.5 mg PO BEDTIME [facility] Last Admin: 05/02/23 20:59 Dose: 2.5 mg Ondansetron HCl (Ondansetron Odt 4 Mg Tab.Rapdis) 4 mg TRANSLINGU Q6H PRN PRN Reason: Nausea and Vomiting Last Admin: 03/20/23 09:13 Dose: 4 mg Polyethylene Glycol (Polyethylene Glycol 3350 17 Gm Powd.Pack) 17 gm PO DAILY PRN PRN Reason: Constipation Last Admin: 04/29/23 08:23 Dose: 17 gm Propranolol HCl (Propranolol Hcl 20 Mg Tablet) 20 mg PO TID [facility]; Protocol Last Admin: 05/03/23 08:18 Dose: 20 mg Senna/Docusate Sodium (Sennosides/Docusate Sodium Tablet) 2 tab PO BEDTIME [facility] Last Admin: 05/02/23 20:59 Dose: 2 tab Trazodone HCl (Trazodone Hcl 100 Mg Tablet) 200 mg PO BEDTIME [facility] Last Admin: 05/02/23 20:59 Dose: 200 mg Vortioxetine (Vortioxetine Hydrobromide 10 Mg Tablet) 10 mg PO DAILY [facility] Last Admin: 05/03/23 08:18 Dose: 10 mg Allergies Allergies Allergy/AdvReac Type Severity Reaction Status Date / Time fentanyl [FENTANYL] Allergy Intermediate unknown Verified 04/08/22 07:00 Assessment & Plan Assessment & Plan (1) Major depressive disorder, recurrent severe without psychotic features: Status: Acute Code(s): F33.2 - Major depressive disorder, recurrent severe without psychotic features (2) Cognitive and neurobehavioral dysfunction following brain injury: Status: Acute Code(s): G31.89 - Other specified degenerative diseases of nervous system; F09 - Unspecified mental disorder due to known physiological condition; S06.9X9S - Unspecified intracranial injury with loss of consciousness of unspecified duration, sequela (3) Personality disorder in adult: Status: Acute Code(s): F60.9 - Personality disorder, unspecified Plan ALPRAZOLAM 0.25 B.I.D. 0.5 BEDTIME OLANZAPINE ALSO 3 TIMES A DAY CONTINUE DEPAKOTE START PROPRANOLOL 10 T.I.D. THE PATIENT CONFRONTED REGARDING NEGATIVE TOXIC BEHAVIOR DIFFICULTY COPING AND NEGATIVE COMPLICATIONS TO HIS LIFE IF CONTINUE VERBALLY AGGRESSIVE AND TOXIC BEHAVIOR WITH OTHERS DEVALUATION ENCOURAGE REFLECTION STRESS MANAGEMENT COPING STRATEGIES 03/07 continue same treatment 03/08 continue same treatment 03/09 continue same treatment 03/10/23 Lower alprazolam .125 mg bid hold afternoon olanzapine secondary to slurring oversedation cont propranolol 03/11/23 Pt doing better less sedated struggles to maintain pos attitude 03/13 continue tx. 03/14: stable presentation, no change in mgmt. 03/15: appears sedated. no change in mgmt today. to F/U with attending tomorrow re meds for anxiety. 03/16 continue tx. 03/17 continue tx. 03/18 continue tx. 03/19 continue tx. 03/22 continue tx. 03/23 continue tx. 03/24/2023 Continue treatment plan discharge planning 03/25/2023 Continue plan of care 03/26/2023 Continued discharge planning needs much reassurance 03/27 continue tx. 03/28: Continue treatment plan. 03/29: Continue current treatment plan 03/30 continue tx. 03/31 continue tx. 04/02 no changes in treatment 04/03/2023 Patient more reactive belligerent kicked out at another person and was reactive with staff and aggressive. Seems much more triggered by stimulation difficulty reflecting discussed with patient increasing olanzapine alprazolam for behavioral control 04/07/23 Cont depakote olanzpine alprazolam encourage strategies to deal with triggers d/c planning 04/08/2023 Depakote increased by 125 mg nortriptyline increased continue discharge planning CK CHEM UA CBC 04/09/23 Patient has become increasingly depressed olanzapine Depakote could not effective for dysphoria irritability case reviewed dr nelson consider ect mirtazapine 04/10 Add Ambien 5 mg at hs 04/11: Continue current treatment plan. 04/12: Continue current treatment plan. 04/13: Continue current plan of care. 04/14 cont plan of care 04/15/23 Start trintellix 5mg daily 04/17/23 Continue treatment plan patient was seen 04/16 and 04/17 Mood generally improved less labile future oriented feels better able to try keep his future focus not current triggers in the inpatient setting nortriptyline has been increased 75 mg Trintellix 5 mg 04/19 keep same treatment 04/20/2023 Lower olanzapine 2.5 at bedtime continue p.r.n. 2.5 hopefully will help with feelings of sedation monitor mood 04/21 continue tx. 04/22 continue tx. 04/23/23 inc mirtazapine 15 hs alp 0.25 prn 04/24/23 inc hs alprazolam 0.5 hs 04/25 continue tx. 04/26 trazodone added back per pt request, remeron d/c. 04/27/23 pt doing better more stable cont plan of care 04/28/2023 Increase Trintellix to 10 mg daily encouragement reassurance regarding upcoming discharge transition 04/29/23 some dep sx monitor response to trintellix pressure of potential d/c and mtg for d/c planning 04/30/23 cont trintellix nortrip depakote 05/02: Continue current regimen and plans. 05/03: Continue current plans Reason for continued inpatient stay Substantial Risk for: inability to function Time Spent With Patient Time: Total time managing care of this patient today ____ minutes.
[2023-05-03] MEDS: Divalproex Sodium Sprinkles 125 MG CAP.DR.SPR PO (12:53)
[2023-05-03 15:41] VITALS: BP 167/86; PULSE 77
[2023-05-03 18:00] VITALS: BP 142/70; PULSE 76; RESP 18; TEMP 36.4; O2SAT 97
[2023-05-03] MEDS: Sennosides/Docusate Sodium TABLET 2 TAB PO (20:45)
[2023-05-03] MEDS: Divalproex Sodium 250 MG TABLET.DR 750 MG PO (20:48)
[2023-05-03] MEDS: OLANZapine 2.5 MG TABLET PO (20:49)
[2023-05-03] MEDS: traZODone HCL 100 MG TABLET 200 MG PO (20:49)
[2023-05-03] MEDS: Acetaminophen 325 MG TABLET 975 MG PO (20:58)
[2023-05-03] MEDS: Nystatin Powder 15 GM BOTTLE 1 APPL TOPICAL (20:58)
[2023-05-03] MEDS: Nortriptyline HCl 25 MG CAPSULE 75 MG PO (21:19)
[2023-05-03] MEDS: ALPRAZolam 0.5 MG TABLET PO (21:21)
[2023-05-04] MEDS: hydrOXYzine HCL 25 MG TABLET PO (02:04)
[2023-05-04] MEDS: ALPRAZolam 0.25 MG TABLET 0.125 MG PO (02:18)
[2023-05-04] MEDS: Vortioxetine Hydrobromide 10 MG TABLET PO (08:58)
[2023-05-04] MEDS: Propranolol HCL 20 MG TABLET PO ×3 (08:58→21:14)
[2023-05-04] MEDS: Acetaminophen 325 MG TABLET 975 MG PO ×2 (09:09→21:09)
--- NOTE | 2023-05-04 09:29 | P.PNPSI_ITS ---
Subjective Subjective Date of Service: 05/04/23 Reason For Visit: Depression hopelessness irritability Subjective Notes: Conditional Voluntary Interim History: Pt reports pressured and pain periorbital sinuses. He denies nasal congestion. He also reports increase acute on chronic right lower back pain. He reports in past he has used mentol products with good effect, but we don't have on our formulary. We discussed capsaisin ointment and warm compresses for chronic back pain. He also reports sleep was difficult last night as he did not get ambien- it appears it fell off EMR. He denies SI/HI. Per nursing, pt slept on and off. No behavioral concerns. Medication Compliance: Yes Side effects from medications: No Attending Groups: Intermittent Mental Status Exam Mental Status Exam Narrative: Appearance: casually groomed, good hygiene, in NAD Behavior: cooperative Speech: clear, normal rate/rhythm/volume, spontaneous TP: linear TC: no signs of psychosis Psychomotor: no agitation or retardation noted Mood: tired, not well Affect: brightens as conversation goes on SI: denies HI: none VH/AH: none Delusions: none SI; none HI: none Insight/judgment: fair x 2. Memory/cog: alert, oriented x 3. Diagnostics Vital Signs (24Hr): Vital Signs - 24 hr 05/03/23 15:41 05/03/23 18:00 Temperature 97.6 F Pulse Rate 77 76 Respiratory Rate 18 Blood Pressure 167/86 H 142/70 H Pulse Oximetry 97 Oxygen Delivery Method Room Air BMI result Body Mass Index 30.2 Labs 04/09/23 07:59 04/09/23 07:59 Imaging Radiology Impressions: ITS Impressions Chest X-Ray 10/20/22 15:45 IMPRESSION: 1. Low lung volumes with bibasilar linear disc atelectasis versus scarring. 2. No airspace consolidation or effusion. Head CT 11/08/22 12:29 IMPRESSION: No acute intracranial hemorrhage or territorial infarction. Stable chronic postoperative changes with gliosis and encephalomalacia in the right frontal and right temporal lobes. Ex vacuo dilatation of the ventricles and diffuse parenchymal volume loss. Right-sided craniotomy changes. Chest X-Ray 11/12/22 10:32 IMPRESSION: Hypoexpanded lungs with bibasilar platelike atelectasis. Brain MRI 11/12/22 13:15 IMPRESSION: 1. No demonstrated acute intracranial abnormalities. 2. Chronic encephalomalacia of the right temporal, right frontal, and left occipital lobes. Small regions of chronic encephalomalacia in the parasagittal aspects of the bilateral parietal lobes. Moderate underlying microangiopathy and generalized cerebral volume loss. Chest X-Ray 11/14/22 15:52 IMPRESSION: Low lung volumes, bibasilar subsegmental atelectasis and slight elevation of the right hemidiaphragm similar to previous exam. Modified Barium Swallow 11/21/22 15:11 IMPRESSION: Laryngeal penetration on several occasions but no laryngeal aspiration. Mild retention of solid food in the valleculae which cleared with subsequent oral administration of water or thin barium. Correlate with speech therapy results. Orbit CT 01/23/23 14:05 IMPRESSION: - No definite significant intraorbital soft tissue findings to assessment is limited on a noncontrast CT of the orbits. No retrobulbar mass lesions and no cellulitic changes appreciated. - There are large fluid levels within the left maxillary sinus and within the right frontal sinus the can be correlated for clinical signs of acute sinusitis. - A peripherally ossified structure extending from the dorsal margin of the right nasolacrimal duct into the right maxillary sinus is stable when compared to examinations dated back to 08/24/2008 favoring a benign etiology. Cervical Spine CT 02/14/23 22:15 IMPRESSION: 1. No acute intracranial abnormality. Stable postsurgical changes with right frontotemporal encephalomalacia, global volume loss, and extraocular dilatation of the right lateral ventricle. 2. No cervical spine fracture or traumatic malalignment. Head CT 02/14/23 22:15 IMPRESSION: 1. No acute intracranial abnormality. Stable postsurgical changes with right frontotemporal encephalomalacia, global volume loss, and extraocular dilatation of the right lateral ventricle. 2. No cervical spine fracture or traumatic malalignment. Hip/Pelvis X-Ray 02/14/23 22:25 IMPRESSION: Moderate degenerative changes of the right hip with loss of superolateral joint space. Similar chronic posttraumatic deformity of the right femoral neck with chronic foreshortening. Status post left total hip arthroplasty in unchanged alignment however the lack of a crosstable lateral view limits assessment for dislocation. No acute fracture or dislocation appreciated on the available views. Foot X-Ray 02/22/23 13:50 IMPRESSION: * Postsurgical changes of arthrodesis first metatarsophalangeal joint. * There is developed large osteophyte from the head of the first metatarsal protruding laterally abutting the head of the second metatarsal. This might be the source of patient's pain. * Underlying degenerative osteoarthritis. Foot X-Ray 02/23/23 14:11 IMPRESSION: Mild degenerative changes MTP, PIP and DIP joints. No visible acute fracture or dislocation seen. Medications Medications Current Medications Acetaminophen (Acetaminophen 325 Mg Tablet) 975 mg PO Q6H PRN PRN Reason: Headache/Pain Mild Scale (1-3) Last Admin: 05/04/23 09:09 Dose: 975 mg Alprazolam (Alprazolam 0.5 Mg Tablet) 0.5 mg PO BEDTIME [facility] Last Admin: 05/03/23 21:21 Dose: 0.5 mg Alprazolam (Alprazolam 0.25 Mg Tablet) 0.25 mg PO BID@0830,1430 [facility] Last Admin: 05/04/23 08:57 Dose: Not Given Alprazolam (Alprazolam 0.25 Mg Tablet) 0.125 mg PO TID PRN PRN Reason: anxiety/restlessness Last Admin: 05/04/23 02:18 Dose: 0.125 mg Artificial Tears (Artificial Tears 15 Ml Drops) 1 drop EYE-BOTH Q2H PRN PRN Reason: Dry Eyes Last Admin: 05/02/23 21:02 Dose: 1 drop Bisacodyl (Bisacodyl 10 Mg Supp.Rect) 10 mg NC DAILY PRN PRN Reason: Constipation Clotrimazole (Clotrimazole 1 % Cream 15 Gm Tube) 1 appl TOPICAL BID [facility]; Protocol Last Admin: 05/04/23 09:00 Dose: Not Given Put [place] Butter/Zinc Oxide (Put In [place] Butter/Zinc Oxide Supp.Rect) 1 supp NC BID PRN PRN Reason: Hemorrhoids Divalproex Sodium (Divalproex Sodium 250 Mg Tablet.Dr) 750 mg PO BEDTIME [facility] Last Admin: 05/03/23 20:48 Dose: 750 mg Divalproex Sodium (Divalproex Sodium Sprinkles 125 Mg Cap.DrIsaacSpr) 125 mg PO DAILY@1200 [facility] Last Admin: 05/03/23 12:53 Dose: 125 mg Guaifenesin/Dextromethorphan (Guaifenesin Dm 100/10/5 Ml 5 Ml Syrup) 5 ml PO Q4H PRN PRN Reason: cough Last Admin: 03/27/23 22:10 Dose: 5 ml Hydrocortisone (Hydrocortisone 1 % Cream 28.35 Gm Tube) 1 appl TOPICAL BID PRN; Protocol PRN Reason: itchy feet Last Admin: 04/12/23 21:27 Dose: 1 appl Hydroxyzine HCl (Hydroxyzine Hcl 25 Mg Tablet) 25 mg PO Q4H PRN PRN Reason: Anxiety Last Admin: 05/04/23 02:04 Dose: 25 mg Latanoprost (Latanoprost 0.005 % Ophth No 2.5 Ml Drops) 1 drop EYE-BOTH BEDTIME [facility] Last Admin: 05/03/23 21:18 Dose: Not Given Lidocaine (Lidocaine 5 % Ointment 35 Gm) 1 appl TOPICAL Q6H PRN; Protocol PRN Reason: pain r foot Last Admin: 04/30/23 20:57 Dose: 1 appl Magnesium Hydroxide (Milk Of Magnesia 30 Ml Oral.Susp) 30 ml PO BID PRN PRN Reason: constipation, stomach/GI upset Last Admin: 04/06/23 21:24 Dose: 30 ml Nortriptyline HCl (Nortriptyline Hcl 25 Mg Capsule) 75 mg PO BEDTIME [facility] Last Admin: 05/03/23 21:19 Dose: 75 mg Nystatin (Nystatin Powder 15 Gm Bottle) 1 appl TOPICAL BID [facility]; Protocol Last Admin: 05/04/23 09:00 Dose: Not Given Olanzapine (Olanzapine 2.5 Mg Tablet) 2.5 mg PO Q4H PRN PRN Reason: anxiety/restlessness Last Admin: 04/28/23 03:25 Dose: 2.5 mg Olanzapine (Olanzapine 2.5 Mg Tablet) 2.5 mg PO BEDTIME [facility] Last Admin: 05/03/23 20:49 Dose: 2.5 mg Ondansetron HCl (Ondansetron Odt 4 Mg Tab.Rapdis) 4 mg TRANSLINGU Q6H PRN PRN Reason: Nausea and Vomiting Last Admin: 03/20/23 09:13 Dose: 4 mg Polyethylene Glycol (Polyethylene Glycol 3350 17 Gm Powd.Pack) 17 gm PO DAILY PRN PRN Reason: Constipation Last Admin: 04/29/23 08:23 Dose: 17 gm Propranolol HCl (Propranolol Hcl 20 Mg Tablet) 20 mg PO TID [facility]; Protocol Last Admin: 05/04/23 08:58 Dose: 20 mg Senna/Docusate Sodium (Sennosides/Docusate Sodium Tablet) 2 tab PO BEDTIME [facility] Last Admin: 05/03/23 20:45 Dose: 2 tab Trazodone HCl (Trazodone Hcl 100 Mg Tablet) 200 mg PO BEDTIME [facility] Last Admin: 05/03/23 20:49 Dose: 200 mg Vortioxetine (Vortioxetine Hydrobromide 10 Mg Tablet) 10 mg PO DAILY [facility] Last Admin: 05/04/23 08:58 Dose: 10 mg Allergies Allergies Allergy/AdvReac Type Severity Reaction Status Date / Time fentanyl [FENTANYL] Allergy Intermediate unknown Verified 04/08/22 07:00 Assessment & Plan Assessment & Plan (1) Major depressive disorder, recurrent severe without psychotic features: Status: Acute Code(s): F33.2 - Major depressive disorder, recurrent severe without psychotic features (2) Cognitive and neurobehavioral dysfunction following brain injury: Status: Acute Code(s): G31.89 - Other specified degenerative diseases of nervous system; F09 - Unspecified mental disorder due to known physiological condition; S06.9X9S - Unspecified intracranial injury with loss of consciousness of unspecified duration, sequela (3) Personality disorder in adult: Status: Acute Code(s): F60.9 - Personality disorder, unspecified Plan ALPRAZOLAM 0.25 B.I.D. 0.5 BEDTIME OLANZAPINE ALSO 3 TIMES A DAY CONTINUE DEPAKOTE START PROPRANOLOL 10 T.I.D. THE PATIENT CONFRONTED REGARDING NEGATIVE T OXIC BEHAVIOR DIFFICULTY COPING AND NEGATIVE COMPLICATIONS TO HIS LIFE IF CONTINUE VERBALLY AGGRESSIVE AND TOXIC BEHAVIOR WITH OTHERS DEVALUATION ENCOURAGE REFLECTION STRESS MANAGEMENT COPING STRATEGIES 03/07 continue same treatment 03/08 continue same treatment 03/09 continue same treatment 03/10/23 Lower alprazolam .125 mg bid hold afternoon olanzapine secondary to slurring oversedation cont propranolol 03/11/23 Pt doing better less sedated struggles to maintain pos attitude 03/13 continue tx. 03/14: stable presentation, no change in mgmt. 03/15: appears sedated. no change in mgmt today. to F/U with attending tomorrow re meds for anxiety. 03/16 continue tx. 03/17 continue tx. 03/18 continue tx. 03/19 continue tx. 03/22 continue tx. 03/23 continue tx. 03/24/2023 Continue treatment plan discharge planning 03/25/2023 Continue plan of care 03/26/2023 Continued discharge planning needs much reassurance 03/27 continue tx. 03/28: Continue treatment plan. 03/29: Continue current treatment plan 03/30 continue tx. 03/31 continue tx. 04/02 no changes in treatment 04/03/2023 Patient more reactive belligerent kicked out at another person and was reactive with staff and aggressive. Seems much more triggered by stimulation difficulty reflecting discussed with patient increasing olanzapine alprazolam for behavi oral control 04/07/23 Cont depakote olanzpine alprazolam encourage strategies to deal with triggers d/c planning 04/08/2023 Depakote increased by 125 mg nortriptyline increased continue discharge planning CK CHEM UA CBC 04/09/23 Patient has become increasingly depressed olanzapine Depakote could not effective for dysphoria irritability case reviewed dr nelson consider ect mirtazapine 04/10 Add Ambien 5 mg at hs 04/11: Continue current treatment plan. 04/12: Continue current treatment plan. 04/13: Continue current plan of care. 04/14 cont plan of care 04/15/23 Start trintellix 5mg daily 04/17/23 Continue treatment plan patient was seen 04/16 and 04/17 Mood generally improved less labile future oriented feels better able to try keep his future focus not current triggers in the inpatient setting nortriptyline has been increased 75 mg Trintellix 5 mg 04/19 keep same treatment 04/20/2023 Lower olanzapine 2.5 at bedtime continue p.r.n. 2.5 hopefully will help with feelings of sedation monitor mood 04/21 continue tx. 04/22 continue tx. 04/23/23 inc mirtazapine 15 hs alp 0.25 prn 04/24/23 inc hs alprazolam 0.5 hs 04/25 continue tx. 04/26 trazodone added back per pt request, remeron d/c. 04/27/23 pt doing better more stable cont plan of care 04/28/2023 Increase Trintellix to 10 mg daily encouragement reassurance regarding upcoming discharge transition 04/29/23 some dep sx monitor response to trintellix pressure of potential d/c and mtg for d/c planning 04/30/23 cont trintellix nortrip depakote 05/02: Continue current regimen and plans. 05/03: Continue current plans 05/04 restart ambien 5mg po qhs- felt off; start fluticasone for sinus congestion/pain with ibuprofen as needed; capsaisin for acute on chronic lower back pain. Reason for continued inpatient stay Substantial Risk for: inability to function Time Spent With Patient Time: Total time managing care of this patient today ____ minutes.
[2023-05-04 10:07] VITALS: BP 132/77; PULSE 77; RESP 16; TEMP 36.2; O2SAT 97
[2023-05-04] MEDS: Divalproex Sodium Sprinkles 125 MG CAP.DR.SPR PO (12:09)
[2023-05-04] MEDS: Fluticasone Propionate Nasal 16 GM SPRAY 2 SPRAY NOSTRIL-B (15:18)
[2023-05-04] MEDS: ALPRAZolam 0.25 MG TABLET PO (15:18)
[2023-05-04 15:20] VITALS: BP 124/74; PULSE 75; O2SAT 95
[2023-05-04 18:00] VITALS: BP 123/61; PULSE 68; RESP 16; TEMP 36.4; O2SAT 97
[2023-05-04] MEDS: OLANZapine 2.5 MG TABLET PO (21:09)
[2023-05-04] MEDS: ALPRAZolam 0.5 MG TABLET PO (21:11)
[2023-05-04] MEDS: Divalproex Sodium 250 MG TABLET.DR 750 MG PO (21:11)
[2023-05-04] MEDS: Nortriptyline HCl 25 MG CAPSULE 75 MG PO (21:12)
[2023-05-04] MEDS: Zolpidem Tartrate 5 MG TABLET PO (21:12)
[2023-05-04] MEDS: traZODone HCL 100 MG TABLET 200 MG PO (21:13)
[2023-05-04] MEDS: Nystatin Powder 15 GM BOTTLE 1 APPL TOPICAL (21:16)
[2023-05-04] MEDS: Lidocaine 5 % Ointment 35 GM 1 APPL TOPICAL (21:17)
[2023-05-04] MEDS: Latanoprost 0.005 % Ophth Sol 2.5 ML DROPS 1 DROP EYE-BOTH (21:17)
[2023-05-04] MEDS: Capsaicin 0.025% Cream 60 GM TUBE 1 APPL TOPICAL (21:18)
[2023-05-05] MEDS: Ibuprofen 600 MG TABLET PO (05:22)
[2023-05-05] MEDS: hydrOXYzine HCL 25 MG TABLET PO (05:23)
[2023-05-05 07:50] VITALS: BP 138/79; PULSE 67; RESP 20; TEMP 36.1; O2SAT 96
[2023-05-05] MEDS: Vortioxetine Hydrobromide 10 MG TABLET PO (07:58)
[2023-05-05] MEDS: Propranolol HCL 20 MG TABLET PO ×3 (07:58→21:10)
[2023-05-05] MEDS: ALPRAZolam 0.25 MG TABLET PO ×2 (07:58→15:40)
[2023-05-05] MEDS: Divalproex Sodium Sprinkles 125 MG CAP.DR.SPR PO (11:48)
[2023-05-05 15:45] VITALS: BP 124/66; PULSE 60
--- NOTE | 2023-05-05 16:59 | HO.PSYCHPN ---
Subjective Subjective Date of Service: 05/05/23 Reason For Visit: Depression hopelessness irritability Subjective Notes: Conditional Voluntary Interim History: Pt reports feeling better today. Pt has been somnolent during the day. No additional concerns in terms of SI/HI. Per nursing, pt slept throught the night. No behavioral concerns. Medication Compliance: Yes Review of Systems Review of Systems unremarkable Yes all other systems are reviewed and are negative, Unobtainable due to mental condition and Unobtainable due to mental status Mental Status Exam Mental Status Exam Narrative: Appearance: casually groomed, good hygiene, in NAD Behavior: cooperative Speech: clear, normal rate/rhythm/volume, spontaneous TP: linear TC: no signs of psychosis Psychomotor: no agitation or retardation noted Mood: tired, not well Affect: brightens as conversation goes on SI: denies HI: none VH/AH: none Delusions: none SI; none HI: none Insight/judgment: fair x 2. Memory/cog: alert, oriented x 3. Diagnostics Vital Signs (24Hr): Vital Signs - 24 hr 05/04/23 18:00 05/05/23 07:50 05/05/23 15:45 Temperature 97.6 F 96.9 F Pulse Rate 68 67 60 Respiratory Rate 16 20 Blood Pressure 123/61 138/79 124/66 Pulse Oximetry 97 96 Oxygen Delivery Method Room Air Room Air BMI result Body Mass Index 30.2 Labs 04/09/23 07:59 04/09/23 07:59 Imaging Radiology Impressions: ITS Impressions Chest X-Ray 10/20/22 15:45 IMPRESSION: 1. Low lung volumes with bibasilar linear disc atelectasis versus scarring. 2. No airspace consolidation or effusion. Head CT 11/08/22 12:29 IMPRESSION: No acute intracranial hemorrhage or territorial infarction. Stable chronic postoperative changes with gliosis and encephalomalacia in the right frontal and right temporal lobes. Ex vacuo dilatation of the ventricles and diffuse parenchymal volume loss. Right-sided craniotomy changes. Chest X-Ray 11/12/22 10:32 IMPRESSION: Hypoexpanded lungs with bibasilar platelike atelectasis. Brain MRI 11/12/22 13:15 IMPRESSION: 1. No demonstrated acute intracranial abnormalities. 2. Chronic encephalomalacia of the right temporal, right frontal, and left occipital lobes. Small regions of chronic encephalomalacia in the parasagittal aspects of the bilateral parietal lobes. Moderate underlying microangiopathy and generalized cerebral volume loss. Chest X-Ray 11/14/22 15:52 IMPRESSION: Low lung volumes, bibasilar subsegmental atelectasis and slight elevation of the right hemidiaphragm similar to previous exam. Modified Barium Swallow 11/21/22 15:11 IMPRESSION: Laryngeal penetration on several occasions but no laryngeal aspiration. Mild retention of solid food in the valleculae which cleared with subsequent oral administration of water or thin barium. Correlate with speech therapy results. Orbit CT 01/23/23 14:05 IMPRESSION: - No definite significant intraorbital soft tissue findings to assessment is limited on a noncontrast CT of the orbits. No retrobulbar mass lesions and no cellulitic changes appreciated. - There are large fluid levels within the left maxillary sinus and within the right frontal sinus the can be correlated for clinical signs of acute sinusitis. - A peripherally ossified structure extending from the dorsal margin of the right nasolacrimal duct into the right maxillary sinus is stable when compared to examinations dated back to 08/24/2008 favoring a benign etiology. Cervical Spine CT 02/14/23 22:15 IMPRESSION: 1. No acute intracranial abnormality. Stable postsurgical changes with right frontotemporal encephalomalacia, global volume loss, and extraocular dilatation of the right lateral ventricle. 2. No cervical spine fracture or traumatic malalignment. Head CT 02/14/23 22:15 IMPRESSION: 1. No acute intracranial abnormality. Stable postsurgical changes with right frontotemporal encephalomalacia, global volume loss, and extraocular dilatation of the right lateral ventricle. 2. No cervical spine fracture or traumatic malalignment. Hip/Pelvis X-Ray 02/14/23 22:25 IMPRESSION: Moderate degenerative changes of the right hip with loss of superolateral joint space. Similar chronic posttraumatic deformity of the right femoral neck with chronic foreshortening. Status post left total hip arthroplasty in unchanged alignment however the lack of a crosstable lateral view limits assessment for dislocation. No acute fracture or dislocation appreciated on the available views. Foot X-Ray 02/22/23 13:50 IMPRESSION: * Postsurgical changes of arthrodesis first metatarsophalangeal joint. * There is developed large osteophyte from the head of the first metatarsal protruding laterally abutting the head of the second metatarsal. This might be the source of patient's pain. * Underlying degenerative osteoarthritis. Foot X-Ray 02/23/23 14:11 IMPRESSION: Mild degenerative changes MTP, PIP and DIP joints. No visible acute fracture or dislocation seen. Medications Medications Current Medications Acetaminophen (Acetaminophen 325 Mg Tablet) 975 mg PO Q6H PRN PRN Reason: Headache/Pain Mild Scale (1-3) Last Admin: 05/04/23 21:09 Dose: 975 mg Alprazolam (Alprazolam 0.5 Mg Tablet) 0.5 mg PO BEDTIME TAZ Last Admin: 05/04/23 21:11 Dose: 0.5 mg Alprazolam (Alprazolam 0.25 Mg Tablet) 0.25 mg PO BID@0830,1430 COUNT INCLUDES THE [facility] Last Admin: 05/05/23 15:40 Dose: 0.25 mg Alprazolam (Alprazolam 0.25 Mg Tablet) 0.125 mg PO TID PRN PRN Reason: anxiety/restlessness Last Admin: 05/04/23 02:18 Dose: 0.125 mg Artificial Tears (Artificial Tears 15 Ml Drops) 1 drop EYE-BOTH Q2H PRN PRN Reason: Dry Eyes Last Admin: 05/02/23 21:02 Dose: 1 drop Bisacodyl (Bisacodyl 10 Mg Supp.Rect) 10 mg DC DAILY PRN PRN Reason: Constipation Capsaicin (Capsaicin 0.025% Cream 60 Gm Tube) 1 appl TOPICAL BEDTIME TAZ; Protocol Clotrimazole (Clotrimazole 1 % Cream 15 Gm Tube) 1 appl TOPICAL BID TAZ; Protocol Last Admin: 05/05/23 08:00 Dose: Not Given [place] Butter/Zinc Oxide ([place] Butter/Zinc Oxide Supp.Rect) 1 supp DC BID PRN PRN Reason: Hemorrhoids Divalproex Sodium (Divalproex Sodium 250 Mg Tablet.Dr) 750 mg PO BEDTIME COUNT INCLUDES THE [facility] Last Admin: 05/04/23 21:11 Dose: 750 mg Divalproex Sodium (Divalproex Sodium Sprinkles 125 Mg Cap.Dr.Spr) 125 mg PO DAILY@1200 TAZ Last Admin: 05/05/23 11:48 Dose: 125 mg Fluticasone Propionate (Fluticasone Propionate Nasal 16 Gm [place]) 2 spray NOSTRIL-B DAILY COUNT INCLUDES THE [facility] Last Admin: 05/05/23 08:00 Dose: Not Given Guaifenesin/Dextromethorphan (Guaifenesin Dm 100/10/5 Ml 5 Ml Syrup) 5 ml PO Q4H PRN PRN Reason: cough Last Admin: 03/27/23 22:10 Dose: 5 ml Hydrocortisone (Hydrocortisone 1 % Cream 28.35 Gm Tube) 1 appl TOPICAL BID PRN; Protocol PRN Reason: itchy feet Last Admin: 04/12/23 21:27 Dose: 1 appl Hydroxyzine HCl (Hydroxyzine Hcl 25 Mg Tablet) 25 mg PO Q4H PRN PRN Reason: Anxiety Last Admin: 05/05/23 05:23 Dose: 25 mg Ibuprofen (Ibuprofen 600 Mg Tablet) 600 mg PO Q6H PRN PRN Reason: Pain, Moderate(Pain Scale 4-6) Last Admin: 05/05/23 05:22 Dose: 600 mg Latanoprost (Latanoprost 0.005 % Ophth No 2.5 Ml Drops) 1 drop EYE-BOTH BEDTIME TAZ Last Admin: 05/04/23 21:17 Dose: 1 drop Lidocaine (Lidocaine 5 % Ointment 35 Gm) 1 appl TOPICAL Q6H PRN; Protocol PRN Reason: pain r foot Last Admin: 05/04/23 21:17 Dose: 1 appl Magnesium Hydroxide (Milk Of Magnesia 30 Ml Oral.Susp) 30 ml PO BID PRN PRN Reason: constipation, stomach/GI upset Last Admin: 04/06/23 21:24 Dose: 30 ml Nortriptyline HCl (Nortriptyline Hcl 25 Mg Capsule) 75 mg PO BEDTIME TAZ Last Admin: 05/04/23 21:12 Dose: 75 mg Nystatin (Nystatin Powder 15 Gm Bottle) 1 appl TOPICAL BEDTIME TAZ; Protocol Olanzapine (Olanzapine 2.5 Mg Tablet) 2.5 mg PO Q4H PRN PRN Reason: anxiety/restlessness Last Admin: 04/28/23 03:25 Dose: 2.5 mg Olanzapine (Olanzapine 2.5 Mg Tablet) 2.5 mg PO BEDTIME TAZ Last Admin: 05/04/23 21:09 Dose: 2.5 mg Ondansetron HCl (Ondansetron Odt 4 Mg Tab.Rapdis) 4 mg TRANSLINGU Q6H PRN PRN Reason: Nausea and Vomiting Last Admin: 03/20/23 09:13 Dose: 4 mg Polyethylene Glycol (Polyethylene Glycol 3350 17 Gm Powd.Pack) 17 gm PO DAILY PRN PRN Reason: Constipation Last Admin: 04/29/23 08:23 Dose: 17 gm Propranolol HCl (Propranolol Hcl 20 Mg Tablet) 20 mg PO TID COUNT INCLUDES THE [facility]; Protocol Last Admin: 05/05/23 15:40 Dose: 20 mg Senna/Docusate Sodium (Sennosides/Docusate Sodium Tablet) 2 tab PO BEDTIME TAZ Last Admin: 05/04/23 22:19 Dose: Not Given Trazodone HCl (Trazodone Hcl 100 Mg Tablet) 200 mg PO BEDTIME TAZ Last Admin: 05/04/23 21:13 Dose: 200 mg Vortioxetine (Vortioxetine Hydrobromide 10 Mg Tablet) 10 mg PO DAILY COUNT INCLUDES THE [facility] Last Admin: 05/05/23 07:58 Dose: 10 mg Zolpidem Tartrate (Zolpidem Tartrate 5 Mg Tablet) 5 mg PO BEDTIME COUNT INCLUDES THE [facility] Last Admin: 05/04/23 21:12 Dose: 5 mg Allergies Allergies Allergy/AdvReac Type Severity Reaction Status Date / Time fentanyl [FENTANYL] Allergy Intermediate unknown Verified 04/08/22 07:00 Assessment & Plan Assessment & Plan (1) Major depressive disorder, recurrent severe without psychotic features: Status: Acute Code(s): F33.2 - Major depressive disorder, recurrent severe without psychotic features (2) Cognitive and neurobehavioral dysfunction following brain injury: Status: Acute Code(s): G31.89 - Other specified degenerative diseases of nervous system; F09 - Unspecified mental disorder due to known physiological condition; S06.9X9S - Unspecified intracranial injury with loss of consciousness of unspecified duration, sequela (3) Personality disorder in adult: Status: Acute Code(s): F60.9 - Personality disorder, unspecified Plan ALPRAZOLAM 0.25 B.I.D. 0.5 BEDTIME OLANZAPINE ALSO 3 TIMES A DAY CONTINUE DEPAKOTE START PROPRANOLOL 10 T.I.D. THE PATIENT CONFRONTED REGARDING NEGATIVE TOXIC BEHAVIOR DIFFICULTY COPING AND NEGATIVE COMPLICATIONS TO HIS LIFE IF CONTINUE VERBALLY AGGRESSIVE AND TOXIC BEHAVIOR WITH OTHERS DEVALUATION ENCOURAGE REFLECTION STRESS MANAGEMENT COPING STRATEGIES 03/07 continue same treatment 03/08 continue same treatment 03/09 continue same treatment 03/10/23 Lower alprazolam .125 mg bid hold afternoon olanzapine secondary to slurring oversedation cont propranolol 03/11/23 Pt doing better less sedated struggles to maintain pos attitude 03/13 continue tx. 03/14: stable presentation, no change in mgmt. 03/15: appears sedated. no change in mgmt today. to F/U with attending tomorrow re meds for anxiety. 03/16 continue tx. 03/17 continue tx. 03/18 continue tx. 03/19 continue tx. 03/22 continue tx. 03/23 continue tx. 03/24/2023 Continue treatment plan discharge planning 03/25/2023 Continue plan of care 03/26/2023 Continued discharge planning needs much reassurance 03/27 continue tx. 03/28: Continue treatment plan. 03/29: Continue current treatment plan 03/30 continue tx. 03/31 continue tx. 04/02 no changes in treatment 04/03/2023 Patient more reactive belligerent kicked out at another person and was reactive with staff and aggressive. Seems much more triggered by stimulation difficulty reflecting discussed with patient increasing olanzapine alprazolam for behavioral control 04/07/23 Cont depakote olanzpine alprazolam encourage strategies to deal with triggers d/c planning 04/08/2023 Depakote increased by 125 mg nortriptyline increased continue discharge planning CK CHEM UA CBC 04/09/23 Patient has become increasingly depressed olanzapine Depakote could not effective for dysphoria irritability case reviewed dr nelson consider ect mirtazapine 04/10 Add Ambien 5 mg at hs 04/11: Continue current treatment plan. 04/12: Continue current treatment plan. 04/13: Continue current plan of care. 04/14 cont plan of care 04/15/23 Start trintellix 5mg daily 04/17/23 Continue treatment plan patient was seen 04/16 and 04/17 Mood generally improved less labile future oriented feels better able to try keep his future focus not current triggers in the inpatient setting nortriptyline has been increased 75 mg Trintellix 5 mg 04/19 keep same treatment 04/20/2023 Lower olanzapine 2.5 at bedtime continue p.r.n. 2.5 hopefully will help with feelings of sedation monitor mood 04/21 continue tx. 04/22 continue tx. 04/23/23 inc mirtazapine 15 hs alp 0.25 prn 04/24/23 inc hs alprazolam 0.5 hs 04/25 continue tx. 04/26 trazodone added back per pt request, remeron d/c. 04/27/23 pt doing better more stable cont plan of care 04/28/2023 Increase Trintellix to 10 mg daily encouragement reassurance regarding upcoming discharge transition 04/29/23 some dep sx monitor response to trintellix pressure of potential d/c and mtg for d/c planning 04/30/23 cont trintellix nortrip depakote 05/02: Continue current regimen and plans. 05/03: Continue current plans 05/04 restart ambien 5mg po qhs- felt off; start fluticasone for sinus congestion/pain with ibuprofen as needed; capsaisin for acute on chronic lower back pain. 05/05 continue tx. Reason for continued inpatient stay Substantial Risk for: inability to function Time Spent With Patient Time: Total time managing care of this patient today ____ minutes.
[2023-05-05 18:00] VITALS: BP 133/63; PULSE 58; RESP 18; TEMP 36.4; O2SAT 98
[2023-05-05] MEDS: Artificial Tears 15 ML DROPS 1 DROP EYE-BOTH (21:05)
[2023-05-05] MEDS: Divalproex Sodium 250 MG TABLET.DR 750 MG PO (21:06)
[2023-05-05] MEDS: ALPRAZolam 0.5 MG TABLET PO (21:07)
[2023-05-05] MEDS: Zolpidem Tartrate 5 MG TABLET PO (21:07)
[2023-05-05] MEDS: Acetaminophen 325 MG TABLET 975 MG PO (21:08)
[2023-05-05] MEDS: traZODone HCL 100 MG TABLET 200 MG PO (21:09)
[2023-05-05] MEDS: Nortriptyline HCl 25 MG CAPSULE 75 MG PO (21:10)
[2023-05-05] MEDS: OLANZapine 2.5 MG TABLET PO (21:10)
[2023-05-05] MEDS: Latanoprost 0.005 % Ophth Sol 2.5 ML DROPS 1 DROP EYE-BOTH (21:11)
[2023-05-05] MEDS: Nystatin Powder 15 GM BOTTLE 1 APPL TOPICAL (21:14)
[2023-05-05] MEDS: Clotrimazole 1 % Cream 15 GM TUBE 1 APPL TOPICAL (21:15)
[2023-05-05] MEDS: Lidocaine 5 % Ointment 35 GM 1 APPL TOPICAL (21:19)
[2023-05-06 01:42] VITALS: BP 129/72; PULSE 62
[2023-05-06 08:00] VITALS: BP 136/78; PULSE 66; RESP 18; TEMP 36.4; O2SAT 98
[2023-05-06] MEDS: Propranolol HCL 20 MG TABLET PO ×3 (08:21→20:54)
[2023-05-06] MEDS: Vortioxetine Hydrobromide 10 MG TABLET PO (08:21)
[2023-05-06] MEDS: Divalproex Sodium Sprinkles 125 MG CAP.DR.SPR PO (13:35)
[2023-05-06] MEDS: Acetaminophen 325 MG TABLET 975 MG PO (14:19)
[2023-05-06 18:00] VITALS: BP 160/76; PULSE 62; RESP 18; TEMP 36.2; O2SAT 98
[2023-05-06] MEDS: Zolpidem Tartrate 5 MG TABLET PO (20:53)
[2023-05-06] MEDS: Divalproex Sodium 250 MG TABLET.DR 750 MG PO (20:53)
[2023-05-06] MEDS: Nortriptyline HCl 25 MG CAPSULE 75 MG PO (20:53)
[2023-05-06] MEDS: Latanoprost 0.005 % Ophth Sol 2.5 ML DROPS 1 DROP EYE-BOTH (20:54)
[2023-05-06] MEDS: OLANZapine 2.5 MG TABLET PO (20:54)
[2023-05-06] MEDS: traZODone HCL 100 MG TABLET 200 MG PO (20:54)
[2023-05-06] MEDS: Artificial Tears 15 ML DROPS 1 DROP EYE-BOTH (20:54)
[2023-05-06] MEDS: Nystatin Powder 15 GM BOTTLE 1 APPL TOPICAL (21:00)
--- NOTE | 2023-05-06 21:56 | HO.PSYCHPN ---
Subjective Subjective Date of Service: 05/06/23 Reason For Visit: Depression hopelessness irritability Subjective Notes: Conditional Voluntary Interim History: Patient has been anxious and ruminating worried about upcoming meeting for discharge planning. Patient looking forward to discharge Mental Status Exam Mental Status Exam Narrative: Appearance: casually groomed, good hygiene, in NAD Behavior: cooperative Speech: clear, normal rate/rhythm/volume, spontaneous TP: linear TC: no signs of psychosis Psychomotor: no agitation or retardation noted Mood: Fatigued anxious Affect: Somewhat constricted SI: denies HI: none VH/AH: none Delusions: none SI; none HI: none Insight/judgment: fair x 2. Memory/cog: alert, oriented x 3. Diagnostics Vital Signs (24Hr): Vital Signs - 24 hr 05/06/23 01:42 05/06/23 08:00 05/06/23 18:00 Temperature 97.6 F 97.1 F Pulse Rate 62 66 62 Respiratory Rate 18 18 Blood Pressure 129/72 136/78 160/76 H Pulse Oximetry 98 98 Oxygen Delivery Method Room Air Room Air BMI result Body Mass Index 30.2 Labs 04/09/23 07:59 04/09/23 07:59 Imaging Radiology Impressions: ITS Impressions Chest X-Ray 10/20/22 15:45 IMPRESSION: 1. Low lung volumes with bibasilar linear disc atelectasis versus scarring. 2. No airspace consolidation or effusion. Head CT 11/08/22 12:29 IMPRESSION: No acute intracranial hemorrhage or territorial infarction. Stable chronic postoperative changes with gliosis and encephalomalacia in the right frontal and right temporal lobes. Ex vacuo dilatation of the ventricles and diffuse parenchymal volume loss. Right-sided craniotomy changes. Chest X-Ray 11/12/22 10:32 IMPRESSION: Hypoexpanded lungs with bibasilar platelike atelectasis. Brain MRI 11/12/22 13:15 IMPRESSION: 1. No demonstrated acute intracranial abnormalities. 2. Chronic encephalomalacia of the right temporal, right frontal, and left occipital lobes. Small regions of chronic encephalomalacia in the parasagittal aspects of the bilateral parietal lobes. Moderate underlying microangiopathy and generalized cerebral volume loss. Chest X-Ray 11/14/22 15:52 IMPRESSION: Low lung volumes, bibasilar subsegmental atelectasis and slight elevation of the right hemidiaphragm similar to previous exam. Modified Barium Swallow 11/21/22 15:11 IMPRESSION: Laryngeal penetration on several occasions but no laryngeal aspiration. Mild retention of solid food in the valleculae which cleared with subsequent oral administration of water or thin barium. Correlate with speech therapy results. Orbit CT 01/23/23 14:05 IMPRESSION: - No definite significant intraorbital soft tissue findings to assessment is limited on a noncontrast CT of the orbits. No retrobulbar mass lesions and no cellulitic changes appreciated. - There are large fluid levels within the left maxillary sinus and within the right frontal sinus the can be correlated for clinical signs of acute sinusitis. - A peripherally ossified structure extending from the dorsal margin of the right nasolacrimal duct into the right maxillary sinus is stable when compared to examinations dated back to 08/24/2008 favoring a benign etiology. Cervical Spine CT 02/14/23 22:15 IMPRESSION: 1. No acute intracranial abnormality. Stable postsurgical changes with right frontotemporal encephalomalacia, global volume loss, and extraocular dilatation of the right lateral ventricle. 2. No cervical spine fracture or traumatic malalignment. Head CT 02/14/23 22:15 IMPRESSION: 1. No acute intracranial abnormality. Stable postsurgical changes with right frontotemporal encephalomalacia, global volume loss, and extraocular dilatation of the right lateral ventricle. 2. No cervical spine fracture or traumatic malalignment. Hip/Pelvis X-Ray 02/14/23 22:25 IMPRESSION: Moderate degenerative changes of the right hip with loss of superolateral joint space. Similar chronic posttraumatic deformity of the right femoral neck with chronic foreshortening. Status post left total hip arthroplasty in unchanged alignment however the lack of a crosstable lateral view limits assessment for dislocation. No acute fracture or dislocation appreciated on the available views. Foot X-Ray 02/22/23 13:50 IMPRESSION: * Postsurgical changes of arthrodesis first metatarsophalangeal joint. * There is developed large osteophyte from the head of the first metatarsal protruding laterally abutting the head of the second metatarsal. This might be the source of patient's pain. * Underlying degenerative osteoarthritis. Foot X-Ray 02/23/23 14:11 IMPRESSION: Mild degenerative changes MTP, PIP and DIP joints. No visible acute fracture or dislocation seen. Medications Medications Current Medications Acetaminophen (Acetaminophen 325 Mg Tablet) 975 mg PO Q6H PRN PRN Reason: Headache/Pain Mild Scale (1-3) Last Admin: 05/06/23 14:19 Dose: 975 mg Artificial Tears (Artificial Tears 15 Ml Drops) 1 drop EYE-BOTH Q2H PRN PRN Reason: Dry Eyes Last Admin: 05/06/23 20:54 Dose: 1 drop Bisacodyl (Bisacodyl 10 Mg Supp.Rect) 10 mg MD DAILY PRN PRN Reason: Constipation Capsaicin (Capsaicin 0.025% Cream 60 Gm Tube) 1 appl TOPICAL BEDTIME TAZ; Protocol Last Admin: 05/06/23 21:01 Dose: Not Given Clotrimazole (Clotrimazole 1 % Cream 15 Gm Tube) 1 appl TOPICAL BID TAZ; Protocol Last Admin: 05/06/23 21:02 Dose: Not Given [place] Butter/Zinc Oxide ([place] Butter/Zinc Oxide Supp.Rect) 1 supp MD BID PRN PRN Reason: Hemorrhoids Divalproex Sodium (Divalproex Sodium 250 Mg Tablet) 750 mg PO BEDTIME TAZ Last Admin: 05/06/23 20:53 Dose: 750 mg Divalproex Sodium (Divalproex Sodium Sprinkles 125 Mg Cap.Spr) 125 mg PO DAILY@1200 TAZ Last Admin: 05/06/23 13:35 Dose: 125 mg Fluticasone Propionate (Fluticasone Propionate Nasal 16 Gm [place]) 2 spray NOSTRIL-B DAILY COUNT INCLUDES THE [facility] Last Admin: 05/06/23 08:41 Dose: Not Given Guaifenesin/Dextromethorphan (Guaifenesin Dm 100/10/5 Ml 5 Ml Syrup) 5 ml PO Q4H PRN PRN Reason: cough Last Admin: 03/27/23 22:10 Dose: 5 ml Hydrocortisone (Hydrocortisone 1 % Cream 28.35 Gm Tube) 1 appl TOPICAL BID PRN; Protocol PRN Reason: itchy feet Last Admin: 04/12/23 21:27 Dose: 1 appl Hydroxyzine HCl (Hydroxyzine Hcl 25 Mg Tablet) 25 mg PO Q4H PRN PRN Reason: Anxiety Last Admin: 05/05/23 05:23 Dose: 25 mg Ibuprofen (Ibuprofen 600 Mg Tablet) 600 mg PO Q6H PRN PRN Reason: Pain, Moderate(Pain Scale 4-6) Last Admin: 05/05/23 05:22 Dose: 600 mg Latanoprost (Latanoprost 0.005 % Ophth No 2.5 Ml Drops) 1 drop EYE-BOTH BEDTIME TAZ Last Admin: 05/06/23 20:54 Dose: 1 drop Lidocaine (Lidocaine 5 % Ointment 35 Gm) 1 appl TOPICAL Q6H PRN; Protocol PRN Reason: pain r foot Last Admin: 05/05/23 21:19 Dose: 1 appl Magnesium Hydroxide (Milk Of Magnesia 30 Ml Oral.Susp) 30 ml PO BID PRN PRN Reason: constipation, stomach/GI upset Last Admin: 04/06/23 21:24 Dose: 30 ml Nortriptyline HCl (Nortriptyline Hcl 25 Mg Capsule) 75 mg PO BEDTIME TAZ Last Admin: 05/06/23 20:53 Dose: 75 mg Nystatin (Nystatin Powder 15 Gm Bottle) 1 appl TOPICAL BEDTIME TAZ; Protocol Last Admin: 05/06/23 21:00 Dose: 1 appl Olanzapine (Olanzapine 2.5 Mg Tablet) 2.5 mg PO Q4H PRN PRN Reason: anxiety/restlessness Last Admin: 04/28/23 03:25 Dose: 2.5 mg Olanzapine (Olanzapine 2.5 Mg Tablet) 2.5 mg PO BEDTIME TAZ Last Admin: 05/06/23 20:54 Dose: 2.5 mg Ondansetron HCl (Ondansetron Odt 4 Mg Tab.Rapdis) 4 mg TRANSLINGU Q6H PRN PRN Reason: Nausea and Vomiting Last Admin: 03/20/23 09:13 Dose: 4 mg Polyethylene Glycol (Polyethylene Glycol 3350 17 Gm Powd.Pack) 17 gm PO DAILY PRN PRN Reason: Constipation Last Admin: 04/29/23 08:23 Dose: 17 gm Propranolol HCl (Propranolol Hcl 20 Mg Tablet) 20 mg PO TID TAZ; Protocol Last Admin: 05/06/23 20:54 Dose: 20 mg Trazodone HCl (Trazodone Hcl 100 Mg Tablet) 200 mg PO BEDTIME TAZ Last Admin: 05/06/23 20:54 Dose: 200 mg Vortioxetine (Vortioxetine Hydrobromide 10 Mg Tablet) 10 mg PO DAILY TAZ Last Admin: 05/06/23 08:21 Dose: 10 mg Zolpidem Tartrate (Zolpidem Tartrate 5 Mg Tablet) 5 mg PO BEDTIME TAZ Last Admin: 05/06/23 20:53 Dose: 5 mg Allergies Allergies Allergy/AdvReac Type Severity Reaction Status Date / Time fentanyl [FENTANYL] Allergy Intermediate unknown Verified 04/08/22 07:00 Assessment & Plan Assessment & Plan (1) Major depressive disorder, recurrent severe without psychotic features: Status: Acute Code(s): F33.2 - Major depressive disorder, recurrent severe without psychotic features (2) Cognitive and neurobehavioral dysfunction following brain injury: Status: Acute Code(s): G31.89 - Other specified degenerative diseases of nervous system; F09 - Unspecified mental disorder due to known physiological condition; S06.9X9S - Unspecified intracranial injury with loss of consciousness of unspecified duration, sequela (3) Personality disorder in adult: Status: Acute Code(s): F60.9 - Personality disorder, unspecified Plan ALPRAZOLAM 0.25 B.I.D. 0.5 BEDTIME OLANZAPINE ALSO 3 TIMES A DAY CONTINUE DEPAKOTE START PROPRANOLOL 10 T.I.D. THE PATIENT CONFRONTED REGARDING NEGATIVE TOXIC BEHAVIOR DIFFICULTY COPING AND NEGATIVE COMPLICATIONS TO HIS LIFE IF CONTINUE VERBALLY AGGRESSIVE AND TOXIC BEHAVIOR WITH OTHERS DEVALUATION ENCOURAGE REFLECTION STRESS MANAGEMENT COPING STRATEGIES 03/07 continue same treatment 03/08 continue same treatment 03/09 continue same treatment 03/10/23 Lower alprazolam .125 mg bid hold afternoon olanzapine secondary to slurring oversedation cont propranolol 03/11/23 Pt doing better less sedated struggles to maintain pos attitude 03/13 continue tx. 03/14: stable presentation, no change in mgmt. 03/15: appears sedated. no change in mgmt today. to F/U with attending tomorrow re meds for anxiety. 03/16 continue tx. 03/17 continue tx. 03/18 continue tx. 03/19 continue tx. 03/22 continue tx. 03/23 continue tx. 03/24/2023 Continue treatment plan discharge planning 03/25/2023 Continue plan of care 03/26/2023 Continued discharge planning needs much reassurance 03/27 continue tx. 03/28: Continue treatment plan. 03/29: Continue current treatment plan 03/30 continue tx. 03/31 continue tx. 04/02 no changes in treatment 04/03/2023 Patient more reactive belligerent kicked out at another person and was reactive with staff and aggressive. Seems much more triggered by stimulation difficulty reflecting discussed with patient increasing olanzapine alprazolam for behavioral control 04/07/23 Cont depakote olanzpine alprazolam encourage strategies to deal with triggers d/c planning 04/08/2023 Depakote increased by 125 mg nortriptyline increased continue discharge planning CK CHEM UA CBC 04/09/23 Patient has become increasingly depressed olanzapine Depakote could not effective for dysphoria irritability case reviewed dr nelson consider ect mirtazapine 04/10 Add Ambien 5 mg at hs 04/11: Continue current treatment plan. 04/12: Continue current treatment plan. 04/13: Continue current plan of care. 04/14 cont plan of care 04/15/23 Start trintellix 5mg daily 04/17/23 Continue treatment plan patient was seen 04/16 and 04/17 Mood generally improved less labile future oriented feels better able to try keep his future focus not current triggers in the inpatient setting nortriptyline has been increased 75 mg Trintellix 5 mg 04/19 keep same treatment 04/20/2023 Lower olanzapine 2.5 at bedtime continue p.r.n. 2.5 hopefully will help with feelings of sedation monitor mood 04/21 continue tx. 04/22 continue tx. 04/23/23 inc mirtazapine 15 hs alp 0.25 prn 04/24/23 inc hs alprazolam 0.5 hs 04/25 continue tx. 04/26 trazodone added back per pt request, remeron d/c. 04/27/23 pt doing better more stable cont plan of care 04/28/2023 Increase Trintellix to 10 mg daily encouragement reassurance regarding upcoming discharge transition 04/29/23 some dep sx monitor response to trintellix pressure of potential d/c and mtg for d/c planning 04/30/23 cont trintellix nortrip depakote 05/02: Continue current regimen and plans. 05/03: Continue current plans 05/04 restart ambien 5mg po qhs- felt off; start fluticasone for sinus congestion/pain with ibuprofen as needed; capsaisin for acute on chronic lower back pain. 05/05 continue tx. 05/06/2023 Continue plan of care needs much encouragement transitional meeting tomorrow Reason for continued inpatient stay Substantial Risk for: inability to function and rapid decompensation Time Spent With Patient Time: Total time managing care of this patient today ____ minutes.
[2023-05-07] MEDS: hydrOXYzine HCL 25 MG TABLET PO (01:09)
[2023-05-07] MEDS: Ibuprofen 600 MG TABLET PO ×2 (05:48→21:07)
[2023-05-07 11:35] VITALS: BP 127/78; PULSE 94; RESP 16; TEMP 36.5; O2SAT 97
[2023-05-07] MEDS: polyethylene glycoL 3350 17 GM POWD.PACK PO (11:36)
[2023-05-07] MEDS: Propranolol HCL 20 MG TABLET PO ×3 (11:37→20:20)
[2023-05-07] MEDS: Divalproex Sodium Sprinkles 125 MG CAP.DR.SPR PO (11:37)
[2023-05-07] MEDS: Vortioxetine Hydrobromide 10 MG TABLET PO (11:37)
[2023-05-07] MEDS: bisacodyL 10 MG SUPP.RECT PR (12:39)
[2023-05-07 14:58] VITALS: BP 150/86; PULSE 69
[2023-05-07] MEDS: ALPRAZolam 0.25 MG TABLET PO (15:45)
[2023-05-07 18:00] VITALS: BP 169/71; PULSE 18; RESP 97; TEMP 36.1; O2SAT 98
[2023-05-07] MEDS: Zolpidem Tartrate 5 MG TABLET PO (20:20)
[2023-05-07] MEDS: Nortriptyline HCl 25 MG CAPSULE 75 MG PO (20:20)
[2023-05-07] MEDS: traZODone HCL 100 MG TABLET 200 MG PO (20:20)
[2023-05-07] MEDS: Divalproex Sodium 250 MG TABLET.DR 750 MG PO (20:20)
[2023-05-07] MEDS: ALPRAZolam 0.5 MG TABLET PO (20:21)
[2023-05-07] MEDS: OLANZapine 2.5 MG TABLET PO (20:21)
[2023-05-07] MEDS: Latanoprost 0.005 % Ophth Sol 2.5 ML DROPS 1 DROP EYE-BOTH (20:57)
[2023-05-07] MEDS: Lidocaine 5 % Ointment 35 GM 1 APPL TOPICAL (20:57)
[2023-05-07] MEDS: Artificial Tears 15 ML DROPS 1 DROP EYE-BOTH (21:07)
[2023-05-07] MEDS: Nystatin Powder 15 GM BOTTLE 1 APPL TOPICAL (21:07)
--- NOTE | 2023-05-07 22:27 | P.PNPSI_ITS ---
Subjective Subjective Date of Service: 05/07/23 Reason For Visit: Depression hopelessness irritability Subjective Notes: Conditional Voluntary Healthcare Proxy: No Guardianship: No Interim History: pt met with [facility] potential placement and d/c reviewed. Pt has some anxiety regarding choiuces some flattening internal preoccupation Medication Compliance: Yes Side effects from medications: Yes Attending Groups: Yes Mental Status Exam Mental Status Exam Narrative: Appearance: casually groomed, good hygiene, in NAD Behavior: cooperative Speech: clear, normal rate/rhythm/volume, spontaneous TP: linear TC: no signs of psychosis overwlmed with decision making Psychomotor: Mood: Fatigued anxious dysphoric Affect: constricted anxious SI: denies HI: none VH/AH: none Delusions: none SI; none HI: none Insight/judgment: fair x 2. Memory/cog: alert, oriented x 3. Diagnostics Vital Signs (24Hr): Vital Signs - 24 hr 05/07/23 11:35 05/07/23 14:58 05/07/23 18:00 Temperature 97.7 F 97.0 F Pulse Rate 94 69 18 L Respiratory Rate 16 97 H Blood Pressure 127/78 150/86 H 169/71 H Pulse Oximetry 97 98 Oxygen Delivery Method Room Air Room Air BMI result Body Mass Index 30.2 Labs 04/09/23 07:59 04/09/23 07:59 Imaging Radiology Impressions: ITS Impressions Chest X-Ray 10/20/22 15:45 IMPRESSION: 1. Low lung volumes with bibasilar linear disc atelectasis versus scarring. 2. No airspace consolidation or effusion. Head CT 11/08/22 12:29 IMPRESSION: No acute intracranial hemorrhage or territorial infarction. Stable chronic postoperative changes with gliosis and encephalomalacia in the right frontal and right temporal lobes. Ex vacuo dilatation of the ventricles and diffuse parenchymal volume loss. Right-sided craniotomy changes. Chest X-Ray 11/12/22 10:32 IMPRESSION: Hypoexpanded lungs with bibasilar platelike atelectasis. Brain MRI 11/12/22 13:15 IMPRESSION: 1. No demonstrated acute intracranial abnormalities. 2. Chronic encephalomalacia of the right temporal, right frontal, and left occipital lobes. Small regions of chronic encephalomalacia in the parasagittal aspects of the bilateral parietal lobes. Moderate underlying microangiopathy and generalized cerebral volume loss. Chest X-Ray 11/14/22 15:52 IMPRESSION: Low lung volumes, bibasilar subsegmental atelectasis and slight elevation of the right hemidiaphragm similar to previous exam. Modified Barium Swallow 11/21/22 15:11 IMPRESSION: Laryngeal penetration on several occasions but no laryngeal aspiration. Mild retention of solid food in the valleculae which cleared with subsequent oral administration of water or thin barium. Correlate with speech therapy results. Orbit CT 01/23/23 14:05 IMPRESSION: - No definite significant intraorbital soft tissue findings to assessment is limited on a noncontrast CT of the orbits. No retrobulbar mass lesions and no cellulitic changes appreciated. - There are large fluid levels within the left maxillary sinus and within the right frontal sinus the can be correlated for clinical signs of acute sinusitis. - A peripherally ossified structure extending from the dorsal margin of the right nasolacrimal duct into the right maxillary sinus is stable when compared to examinations dated back to 08/24/2008 favoring a benign etiology. Cervical Spine CT 02/14/23 22:15 IMPRESSION: 1. No acute intracranial abnormality. Stable postsurgical changes with right frontotemporal encephalomalacia, global volume loss, and extraocular dilatation of the right lateral ventricle. 2. No cervical spine fracture or traumatic malalignment. Head CT 02/14/23 22:15 IMPRESSION: 1. No acute intracranial abnormality. Stable postsurgical changes with right frontotemporal encephalomalacia, global volume loss, and extraocular dilatation of the right lateral ventricle. 2. No cervical spine fracture or traumatic malalignment. Hip/Pelvis X-Ray 02/14/23 22:25 IMPRESSION: Moderate degenerative changes of the right hip with loss of superolateral joint space. Similar chronic posttraumatic deformity of the right femoral neck with chronic foreshortening. Status post left total hip arthroplasty in unchanged alignment however the lack of a crosstable lateral view limits assessment for dislocation. No acute fracture or dislocation appreciated on the available views. Foot X-Ray 02/22/23 13:50 IMPRESSION: * Postsurgical changes of arthrodesis first metatarsophalangeal joint. * There is developed large osteophyte from the head of the first metatarsal protruding laterally abutting the head of the second metatarsal. This might be the source of patient's pain. * Underlying degenerative osteoarthritis. Foot X-Ray 02/23/23 14:11 IMPRESSION: Mild degenerative changes MTP, PIP and DIP joints. No visible acute fracture or dislocation seen. Medications Medications Current Medications Acetaminophen (Acetaminophen 325 Mg Tablet) 975 mg PO Q6H PRN PRN Reason: Headache/Pain Mild Scale (1-3) Last Admin: 05/06/23 14:19 Dose: 975 mg Alprazolam (Alprazolam 0.5 Mg Tablet) 0.5 mg PO BEDTIME [facility] Last Admin: 05/07/23 20:21 Dose: 0.5 mg Alprazolam (Alprazolam 0.25 Mg Tablet) 0.25 mg PO TID PRN PRN Reason: Anxiety Alprazolam (Alprazolam 0.25 Mg Tablet) 0.25 mg PO BID@0900,1500 [facility] Last Admin: 05/07/23 15:45 Dose: 0.25 mg Artificial Tears (Artificial Tears 15 Ml Drops) 1 drop EYE-BOTH Q2H PRN PRN Reason: Dry Eyes Last Admin: 05/07/23 21:07 Dose: 1 drop Bisacodyl (Bisacodyl 10 Mg Supp.Rect) 10 mg MT DAILY PRN PRN Reason: Constipation Last Admin: 05/07/23 12:39 Dose: 10 mg Capsaicin (Capsaicin 0.025% Cream 60 Gm Tube) 1 appl TOPICAL BEDTIME ATZ; Protocol Last Admin: 05/07/23 21:53 Dose: Not Given Clotrimazole (Clotrimazole 1 % Cream 15 Gm Tube) 1 appl TOPICAL BID [facility]; Protocol Last Admin: 05/07/23 22:05 Dose: Not Given [place] Butter/Zinc Oxide ([place] Butter/Zinc Oxide Supp.Rect) 1 supp MT BID PRN PRN Reason: Hemorrhoids Divalproex Sodium (Divalproex Sodium 250 Mg Tablet.Dr) 750 mg PO BEDTIME [facility] Last Admin: 05/07/23 20:20 Dose: 750 mg Divalproex Sodium (Divalproex Sodium Sprinkles 125 Mg Cap.Spr) 125 mg PO DAILY@1200 [facility] Last Admin: 05/07/23 11:37 Dose: 125 mg Fluticasone Propionate (Fluticasone Propionate Nasal 16 Gm [place]) 2 spray NOSTRIL-B DAILY [facility] Last Admin: 05/07/23 11:40 Dose: Not Given Guaifenesin/Dextromethorphan (Guaifenesin Dm 100/10/5 Ml 5 Ml Syrup) 5 ml PO Q4H PRN PRN Reason: cough Last Admin: 03/27/23 22:10 Dose: 5 ml Hydrocortisone (Hydrocortisone 1 % Cream 28.35 Gm Tube) 1 appl TOPICAL BID PRN; Protocol PRN Reason: itchy feet Last Admin: 04/12/23 21:27 Dose: 1 appl Hydroxyzine HCl (Hydroxyzine Hcl 25 Mg Tablet) 25 mg PO Q4H PRN PRN Reason: Anxiety Last Admin: 05/07/23 01:09 Dose: 25 mg Ibuprofen (Ibuprofen 600 Mg Tablet) 600 mg PO Q6H PRN PRN Reason: Pain, Moderate(Pain Scale 4-6) Last Admin: 05/07/23 21:07 Dose: 600 mg Latanoprost (Latanoprost 0.005 % Ophth No 2.5 Ml Drops) 1 drop EYE-BOTH BEDTIME [facility] Last Admin: 05/07/23 20:57 Dose: 1 drop Lidocaine (Lidocaine 5 % Ointment 35 Gm) 1 appl TOPICAL Q6H PRN; Protocol PRN Reason: pain r foot Last Admin: 05/07/23 20:57 Dose: 1 appl Magnesium Hydroxide (Milk Of Magnesia 30 Ml Oral.Susp) 30 ml PO BID PRN PRN Reason: constipation, stomach/GI upset Last Admin: 04/06/23 21:24 Dose: 30 ml Naltrexone HCl (Naltrexone Hcl 50 Mg Tablet) 50 mg PO DAILY [facility] Nortriptyline HCl (Nortriptyline Hcl 25 Mg Capsule) 75 mg PO BEDTIME [facility] Last Admin: 05/07/23 20:20 Dose: 75 mg Nystatin (Nystatin Powder 15 Gm Bottle) 1 appl TOPICAL BEDTIME [facility]; Protocol Last Admin: 05/07/23 21:07 Dose: 1 appl Olanzapine (Olanzapine 2.5 Mg Tablet) 2.5 mg PO Q4H PRN PRN Reason: anxiety/restlessness Last Admin: 04/28/23 03:25 Dose: 2.5 mg Olanzapine (Olanzapine 2.5 Mg Tablet) 2.5 mg PO BEDTIME [facility] Last Admin: 05/07/23 20:21 Dose: 2.5 mg Ondansetron HCl (Ondansetron Odt 4 Mg Tab.Rapdis) 4 mg TRANSLINGU Q6H PRN PRN Reason: Nausea and Vomiting Last Admin: 03/20/23 09:13 Dose: 4 mg Polyethylene Glycol (Polyethylene Glycol 3350 17 Gm Powd.Pack) 17 gm PO DAILY PRN PRN Reason: Constipation Last Admin: 05/07/23 11:36 Dose: 17 gm Propranolol HCl (Propranolol Hcl 20 Mg Tablet) 20 mg PO TID [facility]; Protocol Last Admin: 05/07/23 20:20 Dose: 20 mg Senna (Sennosides 8.6 Mg Tablet) 17.2 mg PO Q24H PRN PRN Reason: Constipation Trazodone HCl (Trazodone Hcl 100 Mg Tablet) 200 mg PO BEDTIME [facility] Last Admin: 05/07/23 20:20 Dose: 200 mg Vortioxetine (Vortioxetine Hydrobromide 10 Mg Tablet) 10 mg PO DAILY [facility] Last Admin: 05/07/23 11:37 Dose: 10 mg Zolpidem Tartrate (Zolpidem Tartrate 5 Mg Tablet) 5 mg PO BEDTIME [facility] Last Admin: 05/07/23 20:20 Dose: 5 mg Allergies Allergies Allergy/AdvReac Type Severity Reaction Status Date / Time fentanyl [FENTANYL] Allergy Intermediate unknown Verified 04/08/22 07:00 Assessment & Plan Assessment & Plan (1) Major depressive disorder, recurrent severe without psychotic features: Status: Acute Code(s): F33.2 - Major depressive disorder, recurrent severe without psychotic features (2) Cognitive and neurobehavioral dysfunction following brain injury: Status: Acute Code(s): G31.89 - Other specified degenerative diseases of nervous system; F09 - Unspec ified mental disorder due to known physiological condition; S06.9X9S - Unspecified intracranial injury with loss of consciousness of unspecified duration, sequela (3) Personality disorder in adult: Status: Acute Code(s): F60.9 - Personality disorder, unspecified Plan ALPRAZOLAM 0.25 B.I.D. 0.5 BEDTIME OLANZAPINE ALSO 3 TIMES A DAY CONTINUE DEPAKOTE START PROPRANOLOL 10 T.I.D. THE PATIENT CONFRONTED REGARDING NEGATIVE TOXIC BEHAVIOR DIFFICULTY COPING AND NEGATIVE COMPLICATIONS TO HIS LIFE IF CONTINUE VERBALLY AGGRESSIVE AND TOXIC BEHAVIOR WITH OTHERS DEVALUATION ENCOURAGE REFLECTION STRESS MANAGEMENT COPING STRATEGIES 03/07 continue same treatment 03/08 continue same treatment 03/09 continue same treatment 03/10/23 Lower alprazolam .125 mg bid hold afternoon olanzapine secondary to slurring oversedation cont propranolol 03/11/23 Pt doing better less sedated struggles to maintain pos attitude 03/13 continue tx. 03/14: stable presentation, no change in mgmt. 03/15: appears sedated. no change in mgmt today. to F/U with attending tomorrow re meds for anxiety. 03/16 continue tx. 03/17 continue tx. 03/18 continue tx. 03/19 continue tx. 03/22 continue tx. 03/23 continue tx. 03/24/2023 Continue treatment plan discharge planning 03/25/2023 Continue plan of care 03/26/2023 Continued discharge planning needs much reassurance 03/27 continue tx. 03/28: Continue treatment plan. 03/29: Continue current treatment plan 03/30 continue tx. 03/31 continue tx. 04/02 no changes in treatment 04/03/2023 Patient more reactive belligerent kicked out at another person and was reactive with staff and aggressive. Seems much more triggered by stimulation difficulty reflecting discussed with patient increasing olanzapine alprazolam for behavioral control 04/07/23 Cont depakote olanzpine alprazolam encourage strategies to deal with triggers d/c planning 04/08/2023 Depakote increased by 125 mg nortriptyline increased continue discharge planning CK CHEM UA CBC 04/09/23 Patient has become increasingly depressed olanzapine Depakote could not effective for dysphoria irritability case reviewed dr nelson consider ect mirtazapine 04/10 Add Ambien 5 mg at hs 04/11: Continue current treatment plan. 04/12: Continue current treatment plan. 04/13: Continue current plan of care. 04/14 cont plan of care 04/15/23 Start trintellix 5mg daily 04/17/23 Continue treatment plan patient was seen 04/16 and 04/17 Mood generally improved less labile future oriented feels better able to try keep his future focus not current triggers in the inpatient setting nortriptyline has been increased 75 mg Trintellix 5 mg 04/19 keep same treatment 04/20/2023 Lower olanzapine 2.5 at bedtime continue p.r.n. 2.5 hopefully will help with feelings of sedation monitor mood 04/21 continue tx. 04/22 continue tx. 04/23/23 inc mirtazapine 15 hs alp 0.25 prn 04/24/23 inc hs alprazolam 0.5 hs 04/25 continue tx. 04/26 trazodone added back per pt request, remeron d/c. 04/27/23 pt doing better more stable cont plan of care 04/28/2023 Increase Trintellix to 10 mg daily encouragement reassurance regarding upcoming discharge transition 04/29/23 some dep sx monitor response to trintellix pressure of potential d/c and mtg for d/c planning 04/30/23 cont trintellix nortrip depakote 05/02: Continue current regimen and plans. 05/03: Continue current plans 05/04 restart ambien 5mg po qhs- felt off; start fluticasone for sinus congestion/pain with ibuprofen as needed; capsaisin for acute on chronic lower back pain. 05/05 continue tx. 05/06/2023 Continue plan of care needs much encouragement transitional meeting tomorrow 05/07/23 needs encouragement regarding placement d/c and ability to transition was overwhelmed initially improved later in day no si Reason for continued inpatient stay Substantial Risk for: inability to function and rapid decompensation Time Spent With Patient Time: Total time managing care of this patient today ____ minutes.
[2023-05-08 08:00] VITALS: BP 149/81; PULSE 67; RESP 16; TEMP 35.9; O2SAT 97
[2023-05-08] MEDS: Propranolol HCL 20 MG TABLET PO ×3 (08:21→21:22)
[2023-05-08] MEDS: Vortioxetine Hydrobromide 10 MG TABLET PO (08:22)
[2023-05-08] MEDS: ALPRAZolam 0.25 MG TABLET PO ×2 (08:22→14:25)
[2023-05-08] MEDS: polyethylene glycoL 3350 17 GM POWD.PACK PO (08:25)
[2023-05-08 14:15] VITALS: BP 138/78; PULSE 67
[2023-05-08] MEDS: Divalproex Sodium Sprinkles 125 MG CAP.DR.SPR PO (14:25)
[2023-05-08] MEDS: Naltrexone HCl 50 MG TABLET PO (14:25)
--- NOTE | 2023-05-08 14:34 | P.PNPSI_ITS ---
Subjective Subjective Date of Service: 05/08/23 Reason For Visit: Depression hopelessness irritability Subjective Notes: Conditional Voluntary Interim History: Pt somewhat anxious re potential discharge had somewhat elevated bp amlodipine Medication Compliance: Yes Mental Status Exam Mental Status Exam Narrative: Appearance: casually dressed Behavior: cooperative Speech: clear, normal rate/rhythm/volume, spontaneous TP: linear TC: fearful of Psychomotor: Mood: Fatigued anxious dysphoric Affect: constricted anxious SI: denies HI: none VH/AH: none Delusions: none SI; none HI: none Insight/judgment: fair x 2. Memory/cog: alert, oriented x 3. Diagnostics Vital Signs (24Hr): Vital Signs - 24 hr 05/07/23 14:58 05/07/23 18:00 05/08/23 08:00 Temperature 97.0 F 96.7 F L Pulse Rate 69 18 L 67 Respiratory Rate 97 H 16 Blood Pressure 150/86 H 169/71 H 149/81 H Pulse Oximetry 98 97 Oxygen Delivery Method Room Air Room Air BMI result Body Mass Index 30.2 Labs 04/09/23 07:59 04/09/23 07:59 Imaging Radiology Impressions: ITS Impressions Chest X-Ray 10/20/22 15:45 IMPRESSION: 1. Low lung volumes with bibasilar linear disc atelectasis versus scarring. 2. No airspace consolidation or effusion. Head CT 11/08/22 12:29 IMPRESSION: No acute intracranial hemorrhage or territorial infarction. Stable chronic postoperative changes with gliosis and encephalomalacia in the right frontal and right temporal lobes. Ex vacuo dilatation of the ventricles and diffuse parenchymal volume loss. Right-sided craniotomy changes. Chest X-Ray 11/12/22 10:32 IMPRESSION: Hypoexpanded lungs with bibasilar platelike atelectasis. Brain MRI 11/12/22 13:15 IMPRESSION: 1. No demonstrated acute intracranial abnormalities. 2. Chronic encephalomalacia of the right temporal, right frontal, and left occipital lobes. Small regions of chronic encephalomalacia in the parasagittal aspects of the bilateral parietal lobes. Moderate underlying microangiopathy and generalized cerebral volume loss. Chest X-Ray 11/14/22 15:52 IMPRESSION: Low lung volumes, bibasilar subsegmental atelectasis and slight elevation of the right hemidiaphragm similar to previous exam. Modified Barium Swallow 11/21/22 15:11 IMPRESSION: Laryngeal penetration on several occasions but no laryngeal aspiration. Mild retention of solid food in the valleculae which cleared with subsequent oral administration of water or thin barium. Correlate with speech therapy results. Orbit CT 01/23/23 14:05 IMPRESSION: - No definite significant intraorbital soft tissue findings to assessment is limited on a noncontrast CT of the orbits. No retrobulbar mass lesions and no cellulitic changes appreciated. - There are large fluid levels within the left maxillary sinus and within the right frontal sinus the can be correlated for clinical signs of acute sinusitis. - A peripherally ossified structure extending from the dorsal margin of the right nasolacrimal duct into the right maxillary sinus is stable when compared to examinations dated back to 08/24/2008 favoring a benign etiology. Cervical Spine CT 02/14/23 22:15 IMPRESSION: 1. No acute intracranial abnormality. Stable postsurgical changes with right frontotemporal encephalomalacia, global volume loss, and extraocular dilatation of the right lateral ventricle. 2. No cervical spine fracture or traumatic malalignment. Head CT 02/14/23 22:15 IMPRESSION: 1. No acute intracranial abnormality. Stable postsurgical changes with right frontotemporal encephalomalacia, global volume loss, and extraocular dilatation of the right lateral ventricle. 2. No cervical spine fracture or traumatic malalignment. Hip/Pelvis X-Ray 02/14/23 22:25 IMPRESSION: Moderate degenerative changes of the right hip with loss of superolateral joint space. Similar chronic posttraumatic deformity of the right femoral neck with chronic foreshortening. Status post left total hip arthroplasty in unchanged alignment however the lack of a crosstable lateral view limits assessment for dislocation. No acute fracture or dislocation appreciated on the available views. Foot X-Ray 02/22/23 13:50 IMPRESSION: * Postsurgical changes of arthrodesis first metatarsophalangeal joint. * There is developed large osteophyte from the head of the first metatarsal protruding laterally abutting the head of the second metatarsal. This might be the source of patient's pain. * Underlying degenerative osteoarthritis. Foot X-Ray 02/23/23 14:11 IMPRESSION: Mild degenerative changes MTP, PIP and DIP joints. No visible acute fracture or dislocation seen. Medications Medications Current Medications Acetaminophen (Acetaminophen 325 Mg Tablet) 975 mg PO Q6H PRN PRN Reason: Headache/Pain Mild Scale (1-3) Last Admin: 05/06/23 14:19 Dose: 975 mg Alprazolam (Alprazolam 0.5 Mg Tablet) 0.5 mg PO BEDTIME [facility] Last Admin: 05/07/23 20:21 Dose: 0.5 mg Alprazolam (Alprazolam 0.25 Mg Tablet) 0.25 mg PO TID PRN PRN Reason: Anxiety Alprazolam (Alprazolam 0.25 Mg Tablet) 0.25 mg PO BID@0900,1500 [facility] Last Admin: 05/08/23 14:25 Dose: 0.25 mg Artificial Tears (Artificial Tears 15 Ml Drops) 1 drop EYE-BOTH Q2H PRN PRN Reason: Dry Eyes Last Admin: 05/07/23 21:07 Dose: 1 drop Bisacodyl (Bisacodyl 10 Mg Supp.Rect) 10 mg MO DAILY PRN PRN Reason: Constipation Last Admin: 05/07/23 12:39 Dose: 10 mg Capsaicin (Capsaicin 0.025% Cream 60 Gm Tube) 1 appl TOPICAL BEDTIME [facility]; Protocol Last Admin: 05/07/23 21:53 Dose: Not Given Clotrimazole (Clotrimazole 1 % Cream 15 Gm Tube) 1 appl TOPICAL BID [facility]; Protocol Last Admin: 05/08/23 10:03 Dose: Not Given Wild Rose Butter/Zinc Oxide (Wild Rose Butter/Zinc Oxide Supp.Rect) 1 supp MO BID PRN PRN Reason: Hemorrhoids Divalproex Sodium (Divalproex Sodium 250 Mg ) 750 mg PO BEDTIME [facility] Last Admin: 05/07/23 20:20 Dose: 750 mg Divalproex Sodium (Divalproex Sodium Sprinkles 125 Mg Cap.) 125 mg PO DAILY@1200 [facility] Last Admin: 05/08/23 14:25 Dose: 125 mg Fluticasone Propionate (Fluticasone Propionate Nasal 16 Gm [place]) 2 spray NOSTRIL-B DAILY [facility] Last Admin: 05/08/23 10:03 Dose: Not Given Guaifenesin/Dextromethorphan (Guaifenesin Dm 100/10/5 Ml 5 Ml Syrup) 5 ml PO Q4H PRN PRN Reason: cough Last Admin: 03/27/23 22:10 Dose: 5 ml Hydrocortisone (Hydrocortisone 1 % Cream 28.35 Gm Tube) 1 appl TOPICAL BID PRN; Protocol PRN Reason: itchy feet Last Admin: 04/12/23 21:27 Dose: 1 appl Hydroxyzine HCl (Hydroxyzine Hcl 25 Mg Tablet) 25 mg PO Q4H PRN PRN Reason: Anxiety Last Admin: 05/07/23 01:09 Dose: 25 mg Ibuprofen (Ibuprofen 600 Mg Tablet) 600 mg PO Q6H PRN PRN Reason: Pain, Moderate(Pain Scale 4-6) Last Admin: 05/07/23 21:07 Dose: 600 mg Latanoprost (Latanoprost 0.005 % Ophth No 2.5 Ml Drops) 1 drop EYE-BOTH BEDTIME [facility] Last Admin: 05/07/23 20:57 Dose: 1 drop Lidocaine (Lidocaine 5 % Ointment 35 Gm) 1 appl TOPICAL Q6H PRN; Protocol PRN Reason: pain r foot Last Admin: 05/07/23 20:57 Dose: 1 appl Magnesium Hydroxide (Milk Of Magnesia 30 Ml Oral.Susp) 30 ml PO BID PRN PRN Reason: constipation, stomach/GI upset Last Admin: 04/06/23 21:24 Dose: 30 ml Naltrexone HCl (Naltrexone Hcl 50 Mg Tablet) 50 mg PO DAILY [facility] Last Admin: 05/08/23 14:25 Dose: 50 mg Nortriptyline HCl (Nortriptyline Hcl 25 Mg Capsule) 75 mg PO BEDTIME [facility] Last Admin: 05/07/23 20:20 Dose: 75 mg Nystatin (Nystatin Powder 15 Gm Bottle) 1 appl TOPICAL BEDTIME [facility]; Protocol Last Admin: 05/07/23 21:07 Dose: 1 appl Olanzapine (Olanzapine 2.5 Mg Tablet) 2.5 mg PO Q4H PRN PRN Reason: anxiety/restlessness Last Admin: 04/28/23 03:25 Dose: 2.5 mg Olanzapine (Olanzapine 2.5 Mg Tablet) 2.5 mg PO BEDTIME [facility] Last Admin: 05/07/23 20:21 Dose: 2.5 mg Ondansetron HCl (Ondansetron Odt 4 Mg Tab.Rapdis) 4 mg TRANSLINGU Q6H PRN PRN Reason: Nausea and Vomiting Last Admin: 03/20/23 09:13 Dose: 4 mg Polyethylene Glycol (Polyethylene Glycol 3350 17 Gm Powd.Pack) 17 gm PO DAILY PRN PRN Reason: Constipation Last Admin: 05/08/23 08:25 Dose: 17 gm Propranolol HCl (Propranolol Hcl 20 Mg Tablet) 20 mg PO TID [facility]; Protocol Last Admin: 05/08/23 14:25 Dose: 20 mg Senna (Sennosides 8.6 Mg Tablet) 17.2 mg PO Q24H PRN PRN Reason: Constipation Trazodone HCl (Trazodone Hcl 100 Mg Tablet) 200 mg PO BEDTIME [facility] Last Admin: 05/07/23 20:20 Dose: 200 mg Vortioxetine (Vortioxetine Hydrobromide 10 Mg Tablet) 10 mg PO DAILY [facility] Last Admin: 05/08/23 08:22 Dose: 10 mg Zolpidem Tartrate (Zolpidem Tartrate 5 Mg Tablet) 5 mg PO BEDTIME [facility] Last Admin: 05/07/23 20:20 Dose: 5 mg Allergies Allergies Allergy/AdvReac Type Severity Reaction Status Date / Time fentanyl [FENTANYL] Allergy Intermediate unknown Verified 04/08/22 07:00 Assessment & Plan Assessment & Plan (1) Major depressive disorder, recurrent severe without psychotic features: Status: Acute Code(s): F33.2 - Major depressive disorder, recurrent severe without psychotic features (2) Cognitive and neurobehavioral dysfunction following brain injury: Status: Acute Code(s): G31.89 - Other specified degenerative diseases of nervous system; F09 - Unspecified mental disorder due to known physiological condition; S06.9X9S - Unspecified intracranial injury with loss of consciousness of unspecified duration, sequela (3) Personality disorder in adult: Status: Acute Code(s): F60.9 - Personality disorder, unspecified Plan ALPRAZOLAM 0.25 B.I.D. 0.5 BEDTIME OLANZAPINE ALSO 3 TIMES A DAY CONTINUE DEPAKOTE START PROPRANOLOL 10 T.I.D. THE PATIENT CONFRONTED REGARDING NEGATIVE TOXIC BEHAVIOR DIFFICULTY COPING AND NEGATIVE COMPLICATIONS TO HIS LIFE IF CONTINUE VERBALLY AGGRESSIVE AND TOXIC BEHAVIOR WITH OTHERS DEVALUATION ENCOURAGE REFLECTION STRESS MANAGEMENT COPING STRATEGIES 03/07 continue same treatment 03/08 continue same treatment 03/09 continue same treatment 03/10/23 Lower alprazolam .125 mg bid hold afternoon olanzapine secondary to slurring oversedation cont propranolol 03/11/23 Pt doing better less sedated struggles to maintain pos attitude 03/13 continue tx. 03/14: stable presentation, no change in mgmt. 03/15: appears sedated. no change in mgmt today. to F/U with attending tomorrow re meds for anxiety. 03/16 continue tx. 03/17 continue tx. 03/18 continue tx. 03/19 continue tx. 03/22 continue tx. 03/23 continue tx. 03/24/2023 Continue treatment plan discharge planning 03/25/2023 Continue plan of care 03/26/2023 Continued discharge planning needs much reassurance 03/27 continue tx. 03/28: Continue treatment plan. 03/29: Continue current treatment plan 03/30 continue tx. 03/31 continue tx. 04/02 no changes in treatment 04/03/2023 Patient more reactive belligerent kicked out at another person and was reactive with staff and aggressive. Seems much more triggered by stimulation difficulty reflecting discussed with patient increasing olanzapine alprazolam for behavioral control 04/07/23 Cont depakote olanzpine alprazolam encourage strategies to deal with triggers d/c planning 04/08/2023 Depakote increased by 125 mg nortriptyline increased continue discharge planning CK CHEM UA CBC 04/09/23 Patient has become increasingly depressed olanzapine Depakote could not effective for dysphoria irritability case reviewed dr nelson consider ect mirtazapine 04/10 Add Ambien 5 mg at hs 04/11: Continue current treatment plan. 04/12: Continue current treatment plan. 04/13: Continue current plan of care. 04/14 cont plan of care 04/15/23 Start trintellix 5mg daily 04/17/23 Continue treatment plan patient was seen 04/16 and 04/17 Mood generally improved less labile future oriented feels better able to try keep his future focus not current triggers in the inpatient setting nortrip tyline has been increased 75 mg Trintellix 5 mg 04/19 keep same treatment 04/20/2023 Lower olanzapine 2.5 at bedtime continue p.r.n. 2.5 hopefully will help with feelings of sedation monitor mood 04/21 continue tx. 04/22 continue tx. 04/23/23 inc mirtazapine 15 hs alp 0.25 prn 04/24/23 inc hs alprazolam 0.5 hs 04/25 continue tx. 04/26 trazodone added back per pt request, remeron d/c. 04/27/23 pt doing better more stable cont plan of care 04/28/2023 Increase Trintellix to 10 mg daily encouragement reassurance regarding upcoming discharge transition 04/29/23 some dep sx monitor response to trintellix pressure of potential d/c and mtg for d/c planning 04/30/23 cont trintellix nortrip depakote 05/02: Continue current regimen and plans. 05/03: Continue current plans 05/04 restart ambien 5mg po qhs- felt off; start fluticasone for sinus congestion/pain with ibuprofen as needed; capsaisin for acute on chronic lower back pain. 05/05 continue tx. 05/06/2023 Continue plan of care needs much encouragement transitional meeting tomorrow 05/07/23 needs encouragement regarding placement d/c and ability to transition was overwhelmed initially improved later in day no si 05/08/23 Pt restart amlodpine encourage adaptation to transition and safety of hospital Reason for continued inpatient stay Substantial Risk for: inability to function and rapid decompensation Time Spent With Patient Time: Total time managing care of this patient today ____ minutes.
[2023-05-08 18:05] VITALS: BP 148/70; PULSE 62
[2023-05-08] MEDS: amLODIPine Besylate 2.5 MG TABLET PO (18:14)
[2023-05-08] MEDS: Acetaminophen 325 MG TABLET 975 MG PO (21:12)
[2023-05-08] MEDS: Zolpidem Tartrate 5 MG TABLET PO (21:14)
[2023-05-08] MEDS: ALPRAZolam 0.5 MG TABLET PO (21:14)
[2023-05-08] MEDS: Divalproex Sodium 250 MG TABLET.DR 750 MG PO (21:16)
[2023-05-08] MEDS: Nortriptyline HCl 25 MG CAPSULE 75 MG PO (21:18)
[2023-05-08] MEDS: traZODone HCL 100 MG TABLET 200 MG PO (21:20)
[2023-05-08] MEDS: OLANZapine 2.5 MG TABLET PO (21:22)
[2023-05-08] MEDS: Artificial Tears 15 ML DROPS 1 DROP EYE-BOTH (21:29)
[2023-05-08] MEDS: Clotrimazole 1 % Cream 15 GM TUBE 1 APPL TOPICAL (21:30)
[2023-05-08] MEDS: Lidocaine 5 % Ointment 35 GM 1 APPL TOPICAL (21:30)
[2023-05-08] MEDS: Latanoprost 0.005 % Ophth Sol 2.5 ML DROPS 1 DROP EYE-BOTH (21:37)
[2023-05-08] MEDS: Nystatin Powder 15 GM BOTTLE 1 APPL TOPICAL ×2 (21:37→22:38)
[2023-05-08 22:00] VITALS: BP 146/82; PULSE 63; RESP 16; TEMP 36.1; O2SAT 97
[2023-05-09 08:00] VITALS: BP 141/84; PULSE 75; RESP 18; TEMP 35.8; O2SAT 96
[2023-05-09] MEDS: Vortioxetine Hydrobromide 10 MG TABLET PO (08:23)
[2023-05-09] MEDS: Naltrexone HCl 50 MG TABLET PO (08:24)
[2023-05-09] MEDS: Propranolol HCL 20 MG TABLET PO ×3 (08:24→22:17)
[2023-05-09] MEDS: amLODIPine Besylate 5 MG TABLET PO (08:24)
[2023-05-09] MEDS: polyethylene glycoL 3350 17 GM POWD.PACK PO (08:26)
[2023-05-09] MEDS: ALPRAZolam 0.25 MG TABLET PO ×2 (08:43→16:11)
[2023-05-09] MEDS: Artificial Tears 15 ML DROPS 1 DROP EYE-BOTH (08:49)
--- NOTE | 2023-05-09 11:39 | P.PNPSI_ITS ---
Subjective Subjective Date of Service: 05/09/23 Reason For Visit: Depression hopelessness irritability Interim History: Patient seen and discussed with team. He announces he has a discharge date May 20 and that he has been in the hospital 8 months. He is anxiously awaiting the date. Was complaining of constipation. Responded to Miralax. No SI/HI. Review of Systems Review of Systems unremarkable Yes all other systems are reviewed and are negative, Unobtainable due to mental condition and Unobtainable due to mental status Mental Status Exam Mental Status Exam Narrative: Appearance: casually dressed Behavior: cooperative Speech: clear, normal rate/rhythm/volume, spontaneous TP: linear TC: discharge plans Psychomotor: Mood: Fatigued anxious dysphoric Affect: constricted anxious SI: denies HI: none VH/AH: none Delusions: none SI; none HI: none Insight/judgment: fair x 2. Memory/cog: alert, oriented x 3. Patient Appearance: Well Grooomed and Fatigued Patient Orientation: Person, Place and Situation Level of Consciousness: Awake and Appropriate Patient Behavior: Cooperative and Passive Behavior Comments: Mood Description: Withdrawn and Constricted Affect Description: Constricted and Apprehensive Patient Cognition Impaired: Yes Ability to Follow Directions: Good Speech Pattern: Clear Memory Description: Intact Diagnostics Vital Signs (24Hr): Vital Signs - 24 hr 05/08/23 14:15 05/08/23 18:05 05/08/23 22:00 Temperature 97 F Pulse Rate 67 62 63 Respiratory Rate 16 Blood Pressure 138/78 148/70 H 146/82 H Pulse Oximetry 97 Oxygen Delivery Method Room Air 05/09/23 08:00 Temperature 96.4 F L Pulse Rate 75 Respiratory Rate 18 Blood Pressure 141/84 H Pulse Oximetry 96 Oxygen Delivery Method Room Air BMI result Body Mass Index 30.2 Labs 04/09/23 07:59 04/09/23 07:59 Imaging Radiology Impressions: ITS Impressions Chest X-Ray 10/20/22 15:45 IMPRESSION: 1. Low lung volumes with bibasilar linear disc atelectasis versus scarring. 2. No airspace consolidation or effusion. Head CT 11/08/22 12:29 IMPRESSION: No acute intracranial hemorrhage or territorial infarction. Stable chronic postoperative changes with gliosis and encephalomalacia in the right frontal and right temporal lobes. Ex vacuo dilatation of the ventricles and diffuse parenchymal volume loss. Right-sided craniotomy changes. Chest X-Ray 11/12/22 10:32 IMPRESSION: Hypoexpanded lungs with bibasilar platelike atelectasis. Brain MRI 11/12/22 13:15 IMPRESSION: 1. No demonstrated acute intracranial abnormalities. 2. Chronic encephalomalacia of the right temporal, right frontal, and left occipital lobes. Small regions of chronic encephalomalacia in the parasagittal aspects of the bilateral parietal lobes. Moderate underlying microangiopathy and generalized cerebral volume loss. Chest X-Ray 11/14/22 15:52 IMPRESSION: Low lung volumes, bibasilar subsegmental atelectasis and slight elevation of the right hemidiaphragm similar to previous exam. Modified Barium Swallow 11/21/22 15:11 IMPRESSION: Laryngeal penetration on several occasions but no laryngeal aspiration. Mild retention of solid food in the valleculae which cleared with subsequent oral administration of water or thin barium. Correlate with speech therapy results. Orbit CT 01/23/23 14:05 IMPRESSION: - No definite significant intraorbital soft tissue findings to assessment is limited on a noncontrast CT of the orbits. No retrobulbar mass lesions and no cellulitic changes appreciated. - There are large fluid levels within the left maxillary sinus and within the right frontal sinus the can be correlated for clinical signs of acute sinusitis. - A peripherally ossified structure extending from the dorsal margin of the right nasolacrimal duct into the right maxillary sinus is stable when compared to examinations dated back to 08/24/2008 favoring a benign etiology. Cervical Spine CT 02/14/23 22:15 IMPRESSION: 1. No acute intracranial abnormality. Stable postsurgical changes with right frontotemporal encephalomalacia, global volume loss, and extraocular dilatation of the right lateral ventricle. 2. No cervical spine fracture or traumatic malalignment. Head CT 02/14/23 22:15 IMPRESSION: 1. No acute intracranial abnormality. Stable postsurgical changes with right frontotemporal encephalomalacia, global volume loss, and extraocular dilatation of the right lateral ventricle. 2. No cervical spine fracture or traumatic malalignment. Hip/Pelvis X-Ray 02/14/23 22:25 IMPRESSION: Moderate degenerative changes of the right hip with loss of superolateral joint space. Similar chronic posttraumatic deformity of the right femoral neck with chronic foreshortening. Status post left total hip arthroplasty in unchanged alignment however the lack of a crosstable lateral view limits assessment for dislocation. No acute fracture or dislocation appreciated on the available views. Foot X-Ray 02/22/23 13:50 IMPRESSION: * Postsurgical changes of arthrodesis first metatarsophalangeal joint. * There is developed large osteophyte from the head of the first metatarsal protruding laterally abutting the head of the second metatarsal. This might be the source of patient's pain. * Underlying degenerative osteoarthritis. Foot X-Ray 02/23/23 14:11 IMPRESSION: Mild degenerative changes MTP, PIP and DIP joints. No visible acute fracture or dislocation seen. Medications Medications Current Medications Acetaminophen (Acetaminophen 325 Mg Tablet) 975 mg PO Q6H PRN PRN Reason: Headache/Pain Mild Scale (1-3) Last Admin: 05/08/23 21:12 Dose: 975 mg Alprazolam (Alprazolam 0.5 Mg Tablet) 0.5 mg PO BEDTIME TAZ Last Admin: 05/08/23 21:14 Dose: 0.5 mg Alprazolam (Alprazolam 0.25 Mg Tablet) 0.25 mg PO TID PRN PRN Reason: Anxiety Alprazolam (Alprazolam 0.25 Mg Tablet) 0.25 mg PO BID@0900,1500 TAZ Last Admin: 05/09/23 08:43 Dose: 0.25 mg Amlodipine Besylate (Amlodipine Besylate 5 Mg Tablet) 5 mg PO DAILY TAZ; Protocol Last Admin: 05/09/23 08:24 Dose: 5 mg Artificial Tears (Artificial Tears 15 Ml Drops) 1 drop EYE-BOTH Q2H PRN PRN Reason: Dry Eyes Last Admin: 05/09/23 08:49 Dose: 1 drop Bisacodyl (Bisacodyl 10 Mg Supp.Rect) 10 mg [place] DAILY PRN PRN Reason: Constipation Last Admin: 05/07/23 12:39 Dose: 10 mg Capsaicin (Capsaicin 0.025% Cream 60 Gm Tube) 1 appl TOPICAL BEDTIME TAZ; Protocol Last Admin: 05/08/23 22:35 Dose: Not Given Clotrimazole (Clotrimazole 1 % Cream 15 Gm Tube) 1 appl TOPICAL BID TAZ; Protocol Last Admin: 05/09/23 08:51 Dose: Not Given [place] Butter/Zinc Oxide ([place] Butter/Zinc Oxide Supp.Rect) 1 supp [place] BID PRN PRN Reason: Hemorrhoids Divalproex Sodium (Divalproex Sodium 250 Mg Tablet.Dr) 750 mg PO BEDTIME [facility] Last Admin: 05/08/23 21:16 Dose: 750 mg Divalproex Sodium (Divalproex Sodium Sprinkles 125 Mg Cap.Dr.Spr) 125 mg PO DAILY@1200 TAZ Last Admin: 05/08/23 14:25 Dose: 125 mg Fluticasone Propionate (Fluticasone Propionate Nasal 16 Gm [place]) 2 spray NOSTRIL-B DAILY [facility] Last Admin: 05/09/23 08:30 Dose: Not Given Guaifenesin/Dextromethorphan (Guaifenesin Dm 100/10/5 Ml 5 Ml Syrup) 5 ml PO Q4H PRN PRN Reason: cough Last Admin: 03/27/23 22:10 Dose: 5 ml Hydrocortisone (Hydrocortisone 1 % Cream 28.35 Gm Tube) 1 appl TOPICAL BID PRN; Protocol PRN Reason: itchy feet Last Admin: 04/12/23 21:27 Dose: 1 appl Hydroxyzine HCl (Hydroxyzine Hcl 25 Mg Tablet) 25 mg PO Q4H PRN PRN Reason: Anxiety Last Admin: 05/07/23 01:09 Dose: 25 mg Ibuprofen (Ibuprofen 600 Mg Tablet) 600 mg PO Q6H PRN PRN Reason: Pain, Moderate(Pain Scale 4-6) Last Admin: 05/07/23 21:07 Dose: 600 mg Latanoprost (Latanoprost 0.005 % Ophth No 2.5 Ml Drops) 1 drop EYE-BOTH BEDTIME [facility] Last Admin: 05/08/23 21:37 Dose: 1 drop Lidocaine (Lidocaine 5 % Ointment 35 Gm) 1 appl TOPICAL Q6H PRN; Protocol PRN Reason: pain r foot Last Admin: 05/08/23 21:30 Dose: 1 appl Magnesium Hydroxide (Milk Of Magnesia 30 Ml Oral.Susp) 30 ml PO BID PRN PRN Reason: constipation, stomach/GI upset Last Admin: 04/06/23 21:24 Dose: 30 ml Naltrexone HCl (Naltrexone Hcl 50 Mg Tablet) 50 mg PO DAILY [facility] Last Admin: 05/09/23 08:24 Dose: 50 mg Nortriptyline HCl (Nortriptyline Hcl 25 Mg Capsule) 75 mg PO BEDTIME TAZ Last Admin: 05/08/23 21:18 Dose: 75 mg Nystatin (Nystatin Powder 15 Gm Bottle) 1 appl TOPICAL BEDTIME TAZ; Protocol Last Admin: 05/08/23 22:38 Dose: 1 appl Olanzapine (Olanzapine 2.5 Mg Tablet) 2.5 mg PO Q4H PRN PRN Reason: anxiety/restlessness Last Admin: 04/28/23 03:25 Dose: 2.5 mg Olanzapine (Olanzapine 2.5 Mg Tablet) 2.5 mg PO BEDTIME TAZ Last Admin: 05/08/23 21:22 Dose: 2.5 mg Ondansetron HCl (Ondansetron Odt 4 Mg Tab.Rapdis) 4 mg TRANSLINGU Q6H PRN PRN Reason: Nausea and Vomiting Last Admin: 03/20/23 09:13 Dose: 4 mg Polyethylene Glycol (Polyethylene Glycol 3350 17 Gm Powd.Pack) 17 gm PO DAILY PRN PRN Reason: Constipation Last Admin: 05/09/23 08:26 Dose: 17 gm Propranolol HCl (Propranolol Hcl 20 Mg Tablet) 20 mg PO TID TAZ; Protocol Last Admin: 05/09/23 08:24 Dose: 20 mg Senna (Sennosides 8.6 Mg Tablet) 17.2 mg PO Q24H PRN PRN Reason: Constipation Trazodone HCl (Trazodone Hcl 100 Mg Tablet) 200 mg PO BEDTIME TAZ Last Admin: 05/08/23 21:20 Dose: 200 mg Vortioxetine (Vortioxetine Hydrobromide 10 Mg Tablet) 10 mg PO DAILY TAZ Last Admin: 05/09/23 08:23 Dose: 10 mg Zolpidem Tartrate (Zolpidem Tartrate 5 Mg Tablet) 5 mg PO BEDTIME TAZ Last Admin: 05/08/23 21:14 Dose: 5 mg Allergies Allergies Allergy/AdvReac Type Severity Reaction Status Date / Time fentanyl [FENTANYL] Allergy Intermediate unknown Verified 04/08/22 07:00 Assessment & Plan Assessment & Plan (1) Major depressive disorder, recurrent severe without psychotic features: Status: Acute Code(s): F33.2 - Major depressive disorder, recurrent severe without psychotic features (2) Cognitive and neurobehavioral dysfunction following brain injury: Status: Acute Code(s): G31.89 - Other specified degenerative diseases of nervous system; F09 - Unspecified mental disorder due to known physiological condition; S06.9X9S - Unspecified intracranial injury with loss of consciousness of unspecified duration, sequela (3) Personality disorder in adult: Status: Acute Code(s): F60.9 - Personality disorder, unspecified Plan ALPRAZOLAM 0.25 B.I.D. 0.5 BEDTIME OLANZAPINE ALSO 3 TIMES A DAY CONTINUE DEPAKOTE START PROPRANOLOL 10 T.I.D. THE PATIENT CONFRONTED REGARDING NEGATIVE TOXIC BEHAVIOR DIFFICULTY COPING AND NEGATIVE COMPLICATIONS TO HIS LIFE IF CONTINUE VERBALLY AGGRESSIVE AND TOXIC BEHAVIOR WITH OTHERS DEVALUATION ENCOURAGE REFLECTION STRESS MANAGEMENT COPING STRATEGIES 03/07 continue same treatment 03/08 continue same treatment 03/09 continue same treatment 03/10/23 Lower alprazolam .125 mg bid hold afternoon olanzapine secondary to slurring oversedation cont propranolol 03/11/23 Pt doing better less sedated struggles to maintain pos attitude 03/13 continue tx. 03/14: stable presentation, no change in mgmt. 03/15: appears sedated. no change in mgmt today. to F/U with attending tomorrow re meds for anxiety. 03/16 continue tx. 03/17 continue tx. 03/18 continue tx. 03/19 continue tx. 03/22 continue tx. 03/23 continue tx. 03/24/2023 Continue treatment plan discharge planning 03/25/2023 Continue plan of care 03/26/2023 Continued discharge planning needs much reassurance 03/27 continue tx. 03/28: Continue treatment plan. 03/29: Continue current treatment plan 03/30 continue tx. 03/31 continue tx. 04/02 no changes in treatment 04/03/2023 Patient more reactive belligerent kicked out at another person and was reactive with staff and aggressive. Seems much more triggered by stimulation difficulty reflecting discussed with patient increasing olanzapine alprazolam for behavioral control 04/07/23 Cont depakote olanzpine alprazolam encourage strategies to deal with triggers d/c planning 04/08/2023 Depakote increased by 125 mg nortriptyline increased continue discharge planning CK CHEM UA CBC 04/09/23 Patient has become increasingly depressed olanzapine Depakote could not effective for dysphoria irritability case reviewed dr nelson consider ect mirtazapine 04/10 Add Ambien 5 mg at hs 04/11: Continue current treatment plan. 04/12: Continue current treatment plan. 04/13: Continue current plan of care. 04/14 cont plan of care 04/15/23 Start trintellix 5mg daily 04/17/23 Continue treatment plan patient was seen 04/16 and 04/17 Mood generally improved less labile future oriented feels better able to try keep his future focus not current triggers in the inpatient setting nortriptyline has been increased 75 mg Trintellix 5 mg 04/19 keep same treatment 04/20/2023 Lower olanzapine 2.5 at bedtime continue p.r.n. 2.5 hopefully will help with feelings of sedation monitor mood 04/21 continue tx. 04/22 continue tx. 04/23/23 inc mirtazapine 15 hs alp 0.25 prn 04/24/23 inc hs alprazolam 0.5 hs 04/25 continue tx. 04/26 trazodone added back per pt request, remeron d/c. 04/27/23 pt doing better more stable cont plan of care 04/28/2023 Increase Trintellix to 10 mg daily encouragement reassurance regarding upcoming discharge transition 04/29/23 some dep sx monitor response to trintellix pressure of potential d/c and mtg for d/c planning 04/30/23 cont trintellix nortrip depakote 05/02: Continue current regimen and plans. 05/03: Continue current plans 05/04 restart ambien 5mg po qhs- felt off; start fluticasone for sinus congestion/pain with ibuprofen as needed; capsaisin for acute on chronic lower back pain. 05/05 continue tx. 05/06/2023 Continue plan of care needs much encouragement transitional meeting tomorrow 05/07/23 needs encouragement regarding placement d/c and ability to transition was overwhelmed initially improved later in day no si 05/08/23 Pt restart amlodpine encourage adaptation to transition and safety of hospital 05/09: Continue current treatment plan. Reason for continued inpatient stay Substantial Risk for: harm to self, inability to function and rapid decompensation Time Spent With Patient Time: Total time managing care of this patient today ____ minutes.
[2023-05-09] MEDS: Divalproex Sodium Sprinkles 125 MG CAP.DR.SPR PO (12:45)
[2023-05-09] MEDS: Acetaminophen 325 MG TABLET 975 MG PO (16:11)
[2023-05-09 16:29] LABS: TS Negative Control Passed; TS Panel A 0; TS Panel B 1; TS Positive Control Passed; TSpotTB Negative (Negative)
[2023-05-09 18:00] VITALS: BP 115/69; PULSE 60; RESP 18; TEMP 36.5; O2SAT 94
--- NOTE | 2023-05-09 18:31 | PC.NURSE ---
Pt had one episode of screaming at another resident wanting her to be quiet while in common area. The other resident was screaming back to him and wanted pt to be quiet, too. Resident was re-directed by nurse with a good effect.
[2023-05-09] MEDS: Zolpidem Tartrate 5 MG TABLET PO (21:58)
[2023-05-09] MEDS: Lidocaine 5 % Ointment 35 GM 1 APPL TOPICAL (22:05)
[2023-05-09] MEDS: Nystatin Powder 15 GM BOTTLE 1 APPL TOPICAL ×2 (22:07→22:17)
[2023-05-09] MEDS: OLANZapine 2.5 MG TABLET PO (22:17)
[2023-05-09] MEDS: traZODone HCL 100 MG TABLET 200 MG PO (22:17)
[2023-05-09] MEDS: ALPRAZolam 0.5 MG TABLET PO (22:18)
[2023-05-09] MEDS: Latanoprost 0.005 % Ophth Sol 2.5 ML DROPS 1 DROP EYE-BOTH (22:19)
[2023-05-09] MEDS: Nortriptyline HCl 25 MG CAPSULE 75 MG PO (22:19)
[2023-05-09] MEDS: Divalproex Sodium 250 MG TABLET.DR 750 MG PO (22:19)
[2023-05-10 08:40] VITALS: BP 127/84; PULSE 75; RESP 20; TEMP 35.9; O2SAT 97
[2023-05-10] MEDS: Propranolol HCL 20 MG TABLET PO ×3 (08:44→21:03)
[2023-05-10] MEDS: Vortioxetine Hydrobromide 10 MG TABLET PO (08:44)
[2023-05-10] MEDS: amLODIPine Besylate 5 MG TABLET PO (08:44)
[2023-05-10] MEDS: Naltrexone HCl 50 MG TABLET PO (08:45)
[2023-05-10] MEDS: polyethylene glycoL 3350 17 GM POWD.PACK PO (08:45)
[2023-05-10] MEDS: ALPRAZolam 0.25 MG TABLET PO ×2 (08:45→14:26)
[2023-05-10] MEDS: Divalproex Sodium Sprinkles 125 MG CAP.DR.SPR PO (12:00)
[2023-05-10 14:24] VITALS: BP 115/69; PULSE 70; RESP 20; TEMP 36.2; O2SAT 94
[2023-05-10] MEDS: Artificial Tears 15 ML DROPS 1 DROP EYE-BOTH ×2 (14:27→21:05)
[2023-05-10] MEDS: Acetaminophen 325 MG TABLET 975 MG PO (15:30)
[2023-05-10 18:00] VITALS: BP 112/65; PULSE 63; RESP 18; TEMP 36.1; O2SAT 95
--- NOTE | 2023-05-10 19:35 | P.PNPSI_ITS ---
Subjective Subjective Date of Service: 05/10/23 Reason For Visit: Depression hopelessness irritability Interim History: Patient seen and discussed with team. He announces he has a discharge date May 20 and that he has been in the hospital 8 months. He is anxiously awaiting the date. Was complaining of constipation. Responded to Miralax. No SI/HI. Review of Systems Review of Systems unremarkable Yes all other systems are reviewed and are negative, Unobtainable due to mental condition and Unobtainable due to mental status Mental Status Exam Mental Status Exam Narrative: Appearance: casually dressed Behavior: cooperative Speech: clear, normal rate/rhythm/volume, spontaneous TP: linear TC: discharge plans Psychomotor: Mood: Fatigued anxious dysphoric Affect: constricted anxious SI: denies HI: none VH/AH: none Delusions: none SI; none HI: none Insight/judgment: fair x 2. Memory/cog: alert, oriented x 3. Patient Appearance: Well Grooomed and Fatigued Patient Orientation: Person, Place and Situation Level of Consciousness: Awake and Appropriate Patient Behavior: Cooperative and Passive Behavior Comments: Mood Description: Withdrawn and Constricted Affect Description: Constricted and Apprehensive Patient Cognition Impaired: Yes Ability to Follow Directions: Good Speech Pattern: Clear Memory Description: Intact Diagnostics Vital Signs (24Hr): Vital Signs - 24 hr 05/10/23 08:40 05/10/23 14:24 Temperature 96.6 F L 97.2 F Pulse Rate 75 70 Respiratory Rate 20 20 Blood Pressure 127/84 115/69 Pulse Oximetry 97 94 Oxygen Delivery Method Room Air Room Air BMI result Body Mass Index 30.2 Labs 04/09/23 07:59 04/09/23 07:59 Labs: Laboratory Results - last 48 hr 05/07/23 12:22 TB Test (T-Spot) Com Negative TB Test Nil Control Passed TB Test Panel A 0 TB Test Panel B 1 TB Test Positive Cntrl Passed Imaging Radiology Impressions: ITS Impressions Chest X-Ray 10/20/22 15:45 IMPRESSION: 1. Low lung volumes with bibasilar linear disc atelectasis versus scarring. 2. No airspace consolidation or effusion. Head CT 11/08/22 12:29 IMPRESSION: No acute intracranial hemorrhage or territorial infarction. Stable chronic postoperative changes with gliosis and encephalomalacia in the right frontal and right temporal lobes. Ex vacuo dilatation of the ventricles and diffuse parenchymal volume loss. Right-sided craniotomy changes. Chest X-Ray 11/12/22 10:32 IMPRESSION: Hypoexpanded lungs with bibasilar platelike atelectasis. Brain MRI 11/12/22 13:15 IMPRESSION: 1. No demonstrated acute intracranial abnormalities. 2. Chronic encephalomalacia of the right temporal, right frontal, and left occipital lobes. Small regions of chronic encephalomalacia in the parasagittal aspects of the bilateral parietal lobes. Moderate underlying microangiopathy and generalized cerebral volume loss. Chest X-Ray 11/14/22 15:52 IMPRESSION: Low lung volumes, bibasilar subsegmental atelectasis and slight elevation of the right hemidiaphragm similar to previous exam. Modified Barium Swallow 11/21/22 15:11 IMPRESSION: Laryngeal penetration on several occasions but no laryngeal aspiration. Mild retention of solid food in the valleculae which cleared with subsequent oral administration of water or thin barium. Correlate with speech therapy results. Orbit CT 01/23/23 14:05 IMPRESSION: - No definite significant intraorbital soft tissue findings to assessment is limited on a noncontrast CT of the orbits. No retrobulbar mass lesions and no cellulitic changes appreciated. - There are large fluid levels within the left maxillary sinus and within the right frontal sinus the can be correlated for clinical signs of acute sinusitis. - A peripherally ossified structure extending from the dorsal margin of the right nasolacrimal duct into the right maxillary sinus is stable when compared to examinations dated back to 08/24/2008 favoring a benign etiology. Cervical Spine CT 02/14/23 22:15 IMPRESSION: 1. No acute intracranial abnormality. Stable postsurgical changes with right frontotemporal encephalomalacia, global volume loss, and extraocular dilatation of the right lateral ventricle. 2. No cervical spine fracture or traumatic malalignment. Head CT 02/14/23 22:15 IMPRESSION: 1. No acute intracranial abnormality. Stable postsurgical changes with right frontotemporal encephalomalacia, global volume loss, and extraocular dilatation of the right lateral ventricle. 2. No cervical spine fracture or traumatic malalignment. Hip/Pelvis X-Ray 02/14/23 22:25 IMPRESSION: Moderate degenerative changes of the right hip with loss of superolateral joint space. Similar chronic posttraumatic deformity of the right femoral neck with chronic foreshortening. Status post left total hip arthroplasty in unchanged alignment however the lack of a crosstable lateral view limits assessment for dislocation. No acute fracture or dislocation appreciated on the available views. Foot X-Ray 02/22/23 13:50 IMPRESSION: * Postsurgical changes of arthrodesis first metatarsophalangeal joint. * There is developed large osteophyte from the head of the first metatarsal protruding laterally abutting the head of the second metatarsal. This might be the source of patient's pain. * Underlying degenerative osteoarthritis. Foot X-Ray 02/23/23 14:11 IMPRESSION: Mild degenerative changes MTP, PIP and DIP joints. No visible acute fracture or dislocation seen. Medications Medications Current Medications Acetaminophen (Acetaminophen 325 Mg Tablet) 975 mg PO Q6H PRN PRN Reason: Headache/Pain Mild Scale (1-3) Last Admin: 05/10/23 15:30 Dose: 975 mg Alprazolam (Alprazolam 0.5 Mg Tablet) 0.5 mg PO BEDTIME TAZ Last Admin: 05/09/23 22:18 Dose: 0.5 mg Alprazolam (Alprazolam 0.25 Mg Tablet) 0.25 mg PO TID PRN PRN Reason: Anxiety Alprazolam (Alprazolam 0.25 Mg Tablet) 0.25 mg PO BID@0900,1500 TAZ Last Admin: 05/10/23 14:26 Dose: 0.25 mg Amlodipine Besylate (Amlodipine Besylate 5 Mg Tablet) 5 mg PO DAILY TAZ; Protocol Last Admin: 05/10/23 08:44 Dose: 5 mg Artificial Tears (Artificial Tears 15 Ml Drops) 1 drop EYE-BOTH Q2H PRN PRN Reason: Dry Eyes Last Admin: 05/10/23 14:27 Dose: 1 drop Bisacodyl (Bisacodyl 10 Mg Supp.Rect) 10 mg WA DAILY PRN PRN Reason: Constipation Last Admin: 05/07/23 12:39 Dose: 10 mg Capsaicin (Capsaicin 0.025% Cream 60 Gm Tube) 1 appl TOPICAL BEDTIME TAZ; Protocol Last Admin: 05/09/23 22:18 Dose: Not Given Clotrimazole (Clotrimazole 1 % Cream 15 Gm Tube) 1 appl TOPICAL BEDTIME TAZ; Protocol [place] Butter/Zinc Oxide ([place] Butter/Zinc Oxide Supp.Rect) 1 supp WA BID PRN PRN Reason: Hemorrhoids Divalproex Sodium (Divalproex Sodium 250 Mg Tablet.Dr) 750 mg PO BEDTIME [facility] Last Admin: 05/09/23 22:19 Dose: 750 mg Divalproex Sodium (Divalproex Sodium Sprinkles 125 Mg Cap.Dr.Spr) 125 mg PO DAILY@1200 TAZ Last Admin: 05/10/23 12:00 Dose: 125 mg Fluticasone Propionate (Fluticasone Propionate Nasal 16 Gm [place]) 2 spray NO STRIL-B DAILY PRN PRN Reason: nasal congestion Guaifenesin/Dextromethorphan (Guaifenesin Dm 100/10/5 Ml 5 Ml Syrup) 5 ml PO Q4H PRN PRN Reason: cough Last Admin: 03/27/23 22:10 Dose: 5 ml Hydrocortisone (Hydrocortisone 1 % Cream 28.35 Gm Tube) 1 appl TOPICAL BID PRN; Protocol PRN Reason: itchy feet Last Admin: 04/12/23 21:27 Dose: 1 appl Hydroxyzine HCl (Hydroxyzine Hcl 25 Mg Tablet) 25 mg PO Q4H PRN PRN Reason: Anxiety Last Admin: 05/07/23 01:09 Dose: 25 mg Ibuprofen (Ibuprofen 600 Mg Tablet) 600 mg PO Q6H PRN PRN Reason: Pain, Moderate(Pain Scale 4-6) Last Admin: 05/07/23 21:07 Dose: 600 mg Latanoprost (Latanoprost 0.005 % Ophth No 2.5 Ml Drops) 1 drop EYE-BOTH BEDTIME [facility] Last Admin: 05/09/23 22:19 Dose: 1 drop Lidocaine (Lidocaine 5 % Ointment 35 Gm) 1 appl TOPICAL Q6H PRN; Protocol PRN Reason: pain r foot Last Admin: 05/09/23 22:05 Dose: 1 appl Magnesium Hydroxide (Milk Of Magnesia 30 Ml Oral.Susp) 30 ml PO BID PRN PRN Reason: constipation, stomach/GI upset Last Admin: 04/06/23 21:24 Dose: 30 ml Naltrexone HCl (Naltrexone Hcl 50 Mg Tablet) 50 mg PO DAILY [facility] Last Admin: 05/10/23 08:45 Dose: 50 mg Nortriptyline HCl (Nortriptyline Hcl 25 Mg Capsule) 75 mg PO BEDTIME [facility] [place] Last Admin: 05/09/23 22:19 Dose: 75 mg Nystatin (Nystatin Powder 15 Gm Bottle) 1 appl TOPICAL BEDTIME TAZ; Protocol Last Admin: 05/09/23 22:17 Dose: 1 appl Olanzapine (Olanzapine 2.5 Mg Tablet) 2.5 mg PO Q4H PRN PRN Reason: anxiety/restlessness Last Admin: 04/28/23 03:25 Dose: 2.5 mg Olanzapine (Olanzapine 2.5 Mg Tablet) 2.5 mg PO BEDTIME TAZ Last Admin: 05/09/23 22:17 Dose: 2.5 mg Ondansetron HCl (Ondansetron Odt 4 Mg Tab.Rapdis) 4 mg TRANSLINGU Q6H PRN PRN Reason: Nausea and Vomiting Last Admin: 03/20/23 09:13 Dose: 4 mg Polyethylene Glycol (Polyethylene Glycol 3350 17 Gm Powd.Pack) 17 gm PO DAILY PRN PRN Reason: Constipation Last Admin: 05/10/23 08:45 Dose: 17 gm Propranolol HCl (Propranolol Hcl 20 Mg Tablet) 20 mg PO TID TAZ; Protocol Last Admin: 05/10/23 14:25 Dose: 20 mg Senna (Sennosides 8.6 Mg Tablet) 17.2 mg PO Q24H PRN PRN Reason: Constipation Trazodone HCl (Trazodone Hcl 100 Mg Tablet) 200 mg PO BEDTIME TAZ Last Admin: 05/09/23 22:17 Dose: 200 mg Vortioxetine (Vortioxetine Hydrobromide 10 Mg Tablet) 10 mg PO DAILY TAZ Last Admin: 05/10/23 08:44 Dose: 10 mg Zolpidem Tartrate (Zolpidem Tartrate 5 Mg Tablet) 5 mg PO BEDTIME [facility] [place] Allergies Allergies Allergy/AdvReac Type Severity Reaction Status Date / Time fentanyl [FENTANYL] Allergy Intermediate unknown Verified 04/08/22 07:00 Assessment & Plan Assessment & Plan (1) Major depressive disorder, recurrent severe without psychotic features: Status: Acute Code(s): F33.2 - Major depressive disorder, recurrent severe without psychotic features (2) Cognitive and neurobehavioral dysfunction following brain injury: Status: Acute Code(s): G31.89 - Other specified degenerative diseases of nervous system; F09 - Unspecified mental disorder due to known physiological condition; S06.9X9S - Unspecified intracranial injury with loss of consciousness of unspecified duration, sequela (3) Personality disorder in adult: Status: Acute Code(s): F60.9 - Personality disorder, unspecified Plan ALPRAZOLAM 0.25 B.I.D. 0.5 BEDTIME OLANZAPINE ALSO 3 TIMES A DAY CONTINUE DEPAKOTE START PROPRANOLOL 10 T.I.D. THE PATIENT CONFRONTED REGARDING NEGATIVE TOXIC BEHAVIOR DIFFICULTY COPING AND NEGATIVE COMPLICATIONS TO HIS LIFE IF CONTINUE VERBALLY AGGRESSIVE AND TOXIC BEHAVIOR WITH OTHERS DEVALUATION ENCOURAGE REFLECTION STRESS MANAGEMENT COPING STRATEGIES 03/07 continue same treatment 03/08 continue same treatment 03/09 continue same treatment 03/10/23 Lower alprazolam .125 mg bid hold afternoon olanzapine secondary to slurring oversedation cont propranolol 03/11/23 Pt doing better less sedated struggles to maintain pos attitude 03/13 continue tx. 03/14: stable presentation, no change in mgmt. 03/15: appears sedated. no change in mgmt today. to F/U with attending tomorrow re meds for anxiety. 03/16 continue tx. 03/17 continue tx. 03/18 continue tx. 03/19 continue tx. 03/22 continue tx. 03/23 continue tx. 03/24/2023 Continue treatment plan discharge planning 03/25/2023 Continue plan of care 03/26/2023 Continued discharge planning needs much reassurance 03/27 continue tx. 03/28: Continue treatment plan. 03/29: Continue current treatment plan 03/30 continue tx. 03/31 continue tx. 04/02 no changes in treatment 04/03/2023 Patient more reactive belligerent kicked out at another person and was reactive with staff and aggressive. Seems much more triggered by stimulation difficulty reflecting discussed with patient increasing olanzapine alprazolam for behavioral control 04/07/23 Cont depakote olanzpine alprazolam encourage strategies to deal with triggers d/c planning 04/08/2023 Depakote increased by 125 mg nortriptyline increased continue discharge planning CK CHEM UA CBC 04/09/23 Patient has become increasingly depressed olanzapine Depakote could not effective for dysphoria irritability case reviewed dr nelson consider ect mirtazapine 04/10 Add Ambien 5 mg at hs 04/11: Continue current treatment plan. 04/12: Continue current treatment plan. 04/13: Continue current plan of care. 04/14 cont plan of care 04/15/23 Start trintellix 5mg daily 04/17/23 Continue treatment plan patient was seen 04/16 and 04/17 Mood generally improved less labile future oriented feels better able to try keep his future focus not current triggers in the inpatient setting nortriptyline has been increased 75 mg Trintellix 5 mg 04/19 keep same treatment 04/20/2023 Lower olanzapine 2.5 at bedtime continue p.r.n. 2.5 hopefully will help with feelings of sedation monitor mood 04/21 continue tx. 04/22 continue tx. 04/23/23 inc mirtazapine 15 hs alp 0.25 prn 04/24/23 inc hs alprazolam 0.5 hs 04/25 continue tx. 04/26 trazodone added back per pt request, remeron d/c. 04/27/23 pt doing better more stable cont plan of care 04/28/2023 Increase Trintellix to 10 mg daily encouragement reassurance regarding upcoming discharge transition 04/29/23 some dep sx monitor response to trintellix pressure of potential d/c and mtg for d/c planning 04/30/23 cont trintellix nortrip depakote 05/02: Continue current regimen and plans. 05/03: Continue current plans 05/04 restart ambien 5mg po qhs- felt off; start fluticasone for sinus congestion/pain with ibuprofen as needed; capsaisin for acute on chronic lower back pain. 05/05 continue tx. 05/06/2023 Continue plan of care needs much encouragement transitional meeting tomorrow 05/07/23 needs encouragement regarding placement d/c and ability to transition was overwhelmed initially improved later in day no si 05/08/23 Pt restart amlodpine encourage adaptation to transition and safety of hospital 05/09: Continue current treatment plan. 05/10: Continue current treatment plan. Reason for continued inpatient stay Substantial Risk for: harm to self and rapid decompensation Time Spent With Patient Time: Total time managing care of this patient today ____ minutes.
[2023-05-10] MEDS: Zolpidem Tartrate 5 MG TABLET PO (21:03)
[2023-05-10] MEDS: traZODone HCL 100 MG TABLET 200 MG PO (21:03)
[2023-05-10] MEDS: OLANZapine 2.5 MG TABLET PO (21:03)
[2023-05-10] MEDS: Nortriptyline HCl 25 MG CAPSULE 75 MG PO (21:03)
[2023-05-10] MEDS: Divalproex Sodium 250 MG TABLET.DR 750 MG PO (21:03)
[2023-05-10] MEDS: ALPRAZolam 0.5 MG TABLET PO (21:03)
[2023-05-10] MEDS: Sennosides 8.6 MG TABLET 17.2 MG PO (21:03)
[2023-05-10] MEDS: Lidocaine 5 % Ointment 35 GM 1 APPL TOPICAL (21:04)
[2023-05-10] MEDS: Latanoprost 0.005 % Ophth Sol 2.5 ML DROPS 1 DROP EYE-BOTH (21:10)
[2023-05-10] MEDS: Nystatin Powder 15 GM BOTTLE 1 APPL TOPICAL (21:15)
[2023-05-11 08:48] VITALS: BP 134/81; PULSE 79; RESP 18; TEMP 36.1; O2SAT 97
[2023-05-11] MEDS: polyethylene glycoL 3350 17 GM POWD.PACK PO (08:55)
[2023-05-11] MEDS: Vortioxetine Hydrobromide 10 MG TABLET PO (08:56)
[2023-05-11] MEDS: amLODIPine Besylate 5 MG TABLET PO (08:56)
[2023-05-11] MEDS: Propranolol HCL 20 MG TABLET PO ×3 (08:56→21:03)
[2023-05-11] MEDS: ALPRAZolam 0.25 MG TABLET PO ×2 (08:56→15:01)
[2023-05-11] MEDS: Naltrexone HCl 50 MG TABLET PO (08:56)
[2023-05-11] MEDS: Divalproex Sodium Sprinkles 125 MG CAP.DR.SPR PO (12:19)
[2023-05-11] MEDS: Ibuprofen 600 MG TABLET PO ×2 (14:57→21:03)
[2023-05-11 19:40] VITALS: BP 124/59; PULSE 62; RESP 18; TEMP 36.3; O2SAT 98
[2023-05-11] MEDS: Nortriptyline HCl 25 MG CAPSULE 75 MG PO (21:02)
[2023-05-11] MEDS: Divalproex Sodium 250 MG TABLET.DR 750 MG PO (21:02)
[2023-05-11] MEDS: OLANZapine 2.5 MG TABLET PO (21:03)
[2023-05-11] MEDS: Zolpidem Tartrate 5 MG TABLET PO (21:03)
[2023-05-11] MEDS: traZODone HCL 100 MG TABLET 200 MG PO (21:03)
[2023-05-11] MEDS: ALPRAZolam 0.5 MG TABLET PO (21:03)
[2023-05-11] MEDS: Sennosides 8.6 MG TABLET 17.2 MG PO (21:03)
[2023-05-11] MEDS: Clotrimazole 1 % Cream 15 GM TUBE 1 APPL TOPICAL (21:10)
[2023-05-11] MEDS: Nystatin Powder 15 GM BOTTLE 1 APPL TOPICAL (21:11)
[2023-05-11] MEDS: Artificial Tears 15 ML DROPS 1 DROP EYE-BOTH (21:12)
[2023-05-11] MEDS: Latanoprost 0.005 % Ophth Sol 2.5 ML DROPS 1 DROP EYE-BOTH (21:15)
[2023-05-12] MEDS: guaiFENesin DM 100/10/5 ML 5 ML SYRUP PO (01:29)
[2023-05-12 08:00] VITALS: BP 142/73; PULSE 62; RESP 18; TEMP 35.8; O2SAT 96
[2023-05-12] MEDS: Vortioxetine Hydrobromide 10 MG TABLET PO (08:26)
[2023-05-12] MEDS: ALPRAZolam 0.25 MG TABLET PO (08:26)
[2023-05-12] MEDS: Propranolol HCL 20 MG TABLET PO ×3 (08:26→22:17)
[2023-05-12] MEDS: amLODIPine Besylate 5 MG TABLET PO (08:27)
[2023-05-12] MEDS: Naltrexone HCl 50 MG TABLET PO (08:27)
[2023-05-12] MEDS: polyethylene glycoL 3350 17 GM POWD.PACK PO (08:34)
[2023-05-12] MEDS: Divalproex Sodium Sprinkles 125 MG CAP.DR.SPR PO (12:21)
[2023-05-12] MEDS: Divalproex Sodium 250 MG TABLET.DR 750 MG PO (22:13)
[2023-05-12] MEDS: ALPRAZolam 0.5 MG TABLET PO (22:14)
[2023-05-12] MEDS: Acetaminophen 325 MG TABLET 650 MG PO ×2 (22:14→22:15)
[2023-05-12] MEDS: Sennosides 8.6 MG TABLET 17.2 MG PO (22:17)
[2023-05-12] MEDS: Nortriptyline HCl 25 MG CAPSULE 75 MG PO (22:18)
[2023-05-12] MEDS: traZODone HCL 100 MG TABLET 200 MG PO (22:19)
[2023-05-12] MEDS: OLANZapine 2.5 MG TABLET PO (22:20)
[2023-05-12] MEDS: Zolpidem Tartrate 5 MG TABLET PO (22:21)
[2023-05-12] MEDS: Clotrimazole 1 % Cream 15 GM TUBE 1 APPL TOPICAL (22:28)
[2023-05-12] MEDS: Nystatin Powder 15 GM BOTTLE 1 APPL TOPICAL ×2 (22:32)
[2023-05-13] MEDS: Naltrexone HCl 50 MG TABLET PO (08:14)
[2023-05-13] MEDS: ALPRAZolam 0.25 MG TABLET PO ×2 (08:14→14:17)
[2023-05-13] MEDS: Propranolol HCL 20 MG TABLET PO ×3 (08:14→21:47)
[2023-05-13] MEDS: Vortioxetine Hydrobromide 10 MG TABLET PO (08:14)
[2023-05-13] MEDS: amLODIPine Besylate 5 MG TABLET PO (08:14)
[2023-05-13 09:20] VITALS: BP 166/75; PULSE 66; RESP 18; TEMP 36.8; O2SAT 98
[2023-05-13] MEDS: Divalproex Sodium Sprinkles 125 MG CAP.DR.SPR PO (12:10)
[2023-05-13] MEDS: polyethylene glycoL 3350 17 GM POWD.PACK PO (13:39)
--- NOTE | 2023-05-13 15:18 | P.PNPSI_ITS ---
Subjective Subjective Date of Service: 05/13/23 Reason For Visit: Depression hopelessness irritability Subjective Notes: Conditional Voluntary Interim History: Pt reports feeling anxious about stepping down to temporary custodial. Pt reports he does not know other peers and concern about relationship with them. Pt reminded that while in hospital he has been exposed to multiple different peers and he has been able to manage. Pt denies SI/HI. Pt sleeping through the night. No behavioral concerns. Pt taking medications as prescribed. Medication Compliance: Yes Side effects from medications: No Review of Systems Review of Systems unremarkable Yes all other systems are reviewed and are negative, Unobtainable due to mental condition and Unobtainable due to mental status Mental Status Exam Mental Status Exam Narrative: Appearance: casually dressed Behavior: cooperative Speech: clear, normal rate/rhythm/volume, spontaneous TP: linear TC: discharge plans Psychomotor: Mood: Fatigued anxious dysphoric Affect: constricted anxious SI: denies HI: none VH/AH: none Delusions: none SI; none HI: none Insight/judgment: fair x 2. Memory/cog: alert, oriented x 3. Diagnostics Vital Signs (24Hr): Vital Signs - 24 hr 05/13/23 09:20 Temperature 98.2 F Pulse Rate 66 Respiratory Rate 18 Blood Pressure 166/75 H Pulse Oximetry 98 Oxygen Delivery Method Room Air BMI result Body Mass Index 30.2 Labs 04/09/23 07:59 04/09/23 07:59 Imaging Radiology Impressions: ITS Impressions Chest X-Ray 10/20/22 15:45 IMPRESSION: 1. Low lung volumes with bibasilar linear disc atelectasis versus scarring. 2. No airspace consolidation or effusion. Head CT 11/08/22 12:29 IMPRESSION: No acute intracranial hemorrhage or territorial infarction. Stable chronic postoperative changes with gliosis and encephalomalacia in the right frontal and right temporal lobes. Ex vacuo dilatation of the ventricles and diffuse parenchymal volume loss. Right-sided craniotomy changes. Chest X-Ray 11/12/22 10:32 IMPRESSION: Hypoexpanded lungs with bibasilar platelike atelectasis. Brain MRI 11/12/22 13:15 IMPRESSION: 1. No demonstrated acute intracranial abnormalities. 2. Chronic encephalomalacia of the right temporal, right frontal, and left occipital lobes. Small regions of chronic encephalomalacia in the parasagittal aspects of the bilateral parietal lobes. Moderate underlying microangiopathy and generalized cerebral volume loss. Chest X-Ray 11/14/22 15:52 IMPRESSION: Low lung volumes, bibasilar subsegmental atelectasis and slight elevation of the right hemidiaphragm similar to previous exam. Modified Barium Swallow 11/21/22 15:11 IMPRESSION: Laryngeal penetration on several occasions but no laryngeal aspiration. Mild retention of solid food in the valleculae which cleared with subsequent oral administration of water or thin barium. Correlate with speech therapy results. Orbit CT 01/23/23 14:05 IMPRESSION: - No definite significant intraorbital soft tissue findings to assessment is limited on a noncontrast CT of the orbits. No retrobulbar mass lesions and no cellulitic changes appreciated. - There are large fluid levels within the left maxillary sinus and within the right frontal sinus the can be correlated for clinical signs of acute sinusitis. - A peripherally ossified structure extending from the dorsal margin of the right nasolacrimal duct into the right maxillary sinus is stable when compared to examinations dated back to 08/24/2008 favoring a benign etiology. Cervical Spine CT 02/14/23 22:15 IMPRESSION: 1. No acute intracranial abnormality. Stable postsurgical changes with right frontotemporal encephalomalacia, global volume loss, and extraocular dilatation of the right lateral ventricle. 2. No cervical spine fracture or traumatic malalignment. Head CT 02/14/23 22:15 IMPRESSION: 1. No acute intracranial abnormality. Stable postsurgical changes with right frontotemporal encephalomalacia, global volume loss, and extraocular dilatation of the right lateral ventricle. 2. No cervical spine fracture or traumatic malalignment. Hip/Pelvis X-Ray 02/14/23 22:25 IMPRESSION: Moderate degenerative changes of the right hip with loss of superolateral joint space. Similar chronic posttraumatic deformity of the right femoral neck with chronic foreshortening. Status post left total hip arthroplasty in unchanged alignment however the lack of a crosstable lateral view limits assessment for dislocation. No acute fracture or dislocation appreciated on the available views. Foot X-Ray 02/22/23 13:50 IMPRESSION: * Postsurgical changes of arthrodesis first metatarsophalangeal joint. * There is developed large osteophyte from the head of the first metatarsal protruding laterally abutting the head of the second metatarsal. This might be the source of patient's pain. * Underlying degenerative osteoarthritis. Foot X-Ray 02/23/23 14:11 IMPRESSION: Mild degenerative changes MTP, PIP and DIP joints. No visible acute fracture or dislocation seen. Medications Medications Current Medications Acetaminophen (Acetaminophen 325 Mg Tablet) 650 mg PO Q6H PRN PRN Reason: Pain, Mild (Pain Scale 1-3) Last Admin: 05/12/23 22:15 Dose: 650 mg Alprazolam (Alprazolam 0.5 Mg Tablet) 0.5 mg PO BEDTIME TAZ Last Admin: 05/12/23 22:14 Dose: 0.5 mg Alprazolam (Alprazolam 0.25 Mg Tablet) 0.25 mg PO TID PRN PRN Reason: Anxiety Alprazolam (Alprazolam 0.25 Mg Tablet) 0.25 mg PO BID@0830,1430 TAZ Last Admin: 05/13/23 14:17 Dose: 0.25 mg Amlodipine Besylate (Amlodipine Besylate 5 Mg Tablet) 5 mg PO DAILY TAZ; Protocol Last Admin: 05/13/23 08:14 Dose: 5 mg Artificial Tears (Artificial Tears 15 Ml Drops) 1 drop EYE-BOTH Q2H PRN PRN Reason: Dry Eyes Last Admin: 05/11/23 21:12 Dose: 1 drop Bisacodyl (Bisacodyl 10 Mg Supp.Rect) 10 mg MS DAILY PRN PRN Reason: Constipation Last Admin: 05/07/23 12:39 Dose: 10 mg Capsaicin (Capsaicin 0.025% Cream 60 Gm Tube) 1 appl TOPICAL BEDTIME TAZ; Protocol Last Admin: 05/12/23 22:32 Dose: Not Given Clotrimazole (Clotrimazole 1 % Cream 15 Gm Tube) 1 appl TOPICAL BEDTIME TAZ; Protocol Last Admin: 05/12/23 22:28 Dose: 1 appl [place] Butter/Zinc Oxide ([place] Butter/Zinc Oxide Supp.Rect) 1 supp MS BID PRN PRN Reason: Hemorrhoids Divalproex Sodium (Divalproex Sodium 250 Mg Tablet.Dr) 750 mg PO BEDTIME TAZ Last Admin: 05/12/23 22:13 Dose: 750 mg Divalproex Sodium (Divalproex Sodium Sprinkles 125 Mg Cap.Dr.Spr) 125 mg PO DAILY@1200 TAZ Last Admin: 05/13/23 12:10 Dose: 125 mg Fluticasone Propionate (Fluticasone Propionate Nasal 16 Gm [place]) 2 spray NOSTRIL-B DAILY PRN PRN Reason: nasal congestion Guaifenesin/Dextromethorphan (Guaifenesin Dm 100/10/5 Ml 5 Ml Syrup) 5 ml PO Q4H PRN PRN Reason: cough Last Admin: 05/12/23 01:29 Dose: 5 ml Hydrocortisone (Hydrocortisone 1 % Cream 28.35 Gm Tube) 1 appl TOPICAL BID PRN; Protocol PRN Reason: itchy feet Last Admin: 04/12/23 21:27 Dose: 1 appl Hydroxyzine HCl (Hydroxyzine Hcl 25 Mg Tablet) 25 mg PO Q4H PRN PRN Reason: Anxiety Last Admin: 05/07/23 01:09 Dose: 25 mg Ibuprofen (Ibuprofen 600 Mg Tablet) 600 mg PO Q6H PRN PRN Reason: Pain, Moderate(Pain Scale 4-6) Last Admin: 05/11/23 21:03 Dose: 600 mg Latanoprost (Latanoprost 0.005 % Ophth No 2.5 Ml Drops) 1 drop EYE-BOTH BEDTIME TAZ Last Admin: 05/11/23 21:15 Dose: 1 drop Lidocaine (Lidocaine 5 % Ointment 35 Gm) 1 appl TOPICAL Q6H PRN; Protocol PRN Reason: pain r foot Last Admin: 05/10/23 21:04 Dose: 1 appl Magnesium Hydroxide (Milk Of Magnesia 30 Ml Oral.Susp) 30 ml PO BID PRN PRN Reason: constipation, stomach/GI upset Last Admin: 04/06/23 21:24 Dose: 30 ml Naltrexone HCl (Naltrexone Hcl 50 Mg Tablet) 50 mg PO DAILY TAZ Last Admin: 05/13/23 08:14 Dose: 50 mg Nortriptyline HCl (Nortriptyline Hcl 25 Mg Capsule) 75 mg PO BEDTIME TAZ Last Admin: 05/12/23 22:18 Dose: 75 mg Nystatin (Nystatin Powder 15 Gm Bottle) 1 appl TOPICAL BEDTIME TAZ; Protocol Last Admin: 05/12/23 22:32 Dose: 1 appl Olanzapine (Olanzapine 2.5 Mg Tablet) 2.5 mg PO Q4H PRN PRN Reason: anxiety/restlessness Last Admin: 04/28/23 03:25 Dose: 2.5 mg Olanzapine (Olanzapine 2.5 Mg Tablet) 2.5 mg PO BEDTIME TAZ Last Admin: 05/12/23 22:20 Dose: 2.5 mg Ondansetron HCl (Ondansetron Odt 4 Mg Tab.Rapdis) 4 mg TRANSLINGU Q6H PRN PRN Reason: Nausea and Vomiting Last Admin: 03/20/23 09:13 Dose: 4 mg Polyethylene Glycol (Polyethylene Glycol 3350 17 Gm Powd.Pack) 17 gm PO DAILY PRN PRN Reason: Constipation Last Admin: 05/13/23 13:39 Dose: 17 gm Propranolol HCl (Propranolol Hcl 20 Mg Tablet) 20 mg PO TID TAZ; Protocol Last Admin: 05/13/23 14:16 Dose: 20 mg Senna (Sennosides 8.6 Mg Tablet) 17.2 mg PO Q24H PRN PRN Reason: Constipation Last Admin: 05/12/23 22:17 Dose: 17.2 mg Trazodone HCl (Trazodone Hcl 100 Mg Tablet) 200 mg PO BEDTIME TAZ Last Admin: 05/12/23 22:19 Dose: 200 mg Vortioxetine (Vortioxetine Hydrobromide 10 Mg Tablet) 10 mg PO DAILY TAZ Last Admin: 05/13/23 08:14 Dose: 10 mg Zolpidem Tartrate (Zolpidem Tartrate 5 Mg Tablet) 5 mg PO BEDTIME TAZ Last Admin: 05/12/23 22:21 Dose: 5 mg Allergies Allergies Allergy/AdvReac Type Severity Reaction Status Date / Time fentanyl [FENTANYL] Allergy Intermediate unknown Verified 04/08/22 07:00 Assessment & Plan Assessment & Plan (1) Major depressive disorder, recurrent severe without psychotic features: Status: Acute Code(s): F33.2 - Major depressive disorder, recurrent severe without psychotic features (2) Cognitive and neurobehavioral dysfunction following brain injury: Status: Acute Code(s): G31.89 - Other specified degenerative diseases of nervous system; F09 - Unspecified mental disorder due to known physiological condition; S06.9X9S - Unspecified intracranial injury with loss of consciousness of unspecified duration, sequela (3) Personality disorder in adult: Status: Acute Code(s): F60.9 - Personality disorder, unspecified Plan ALPRAZOLAM 0.25 B.I.D. 0.5 BEDTIME OLANZAPINE ALSO 3 TIMES A DAY CONTINUE DEPA KOTE START PROPRANOLOL 10 T.I.D. THE PATIENT CONFRONTED REGARDING NEGATIVE TOXIC BEHAVIOR DIFFICULTY COPING AND NEGATIVE COMPLICATIONS TO HIS LIFE IF CONTINUE VERBALLY AGGRESSIVE AND TOXIC BEHAVIOR WITH OTHERS DEVALUATION ENCOURAGE REFLECTION STRESS MANAGEMENT COPING STRATEGIES 03/07 continue same treatment 03/08 continue same treatment 03/09 continue same treatment 03/10/23 Lower alprazolam .125 mg bid hold afternoon olanzapine secondary to slurring oversedation cont propranolol 03/11/23 Pt doing better less sedated struggles to maintain pos attitude 03/13 continue tx. 03/14: stable presentation, no change in mgmt. 03/15: appears sedated. no change in mgmt today. to F/U with attending jeremy gracia re meds for anxiety. 03/16 continue tx. 03/17 continue tx. 03/18 continue tx. 03/19 continue tx. 03/22 continue tx. 03/23 continue tx. 03/24/2023 Continue treatment plan discharge planning 03/25/2023 Continue plan of care 03/26/2023 Continued discharge planning needs much reassurance 03/27 continue tx. 03/28: Continue treatment plan. 03/29: Continue current treatment plan 03/30 continue tx. 03/31 continue tx. 04/02 no changes in treatment 04/03/2023 Patient more reactive belligerent kicked out at another person and was reactive with staff and aggressive. Seems much more triggered by stimulation difficulty reflecting discussed with patient increasing olanzapine alprazolam for behavioral control 04/07/23 Cont depakote olanzpine alprazolam encourage strategies to deal with triggers d/c planning 04/08/2023 Depakote increased by 125 mg nortriptyline increased continue discharge planning CK CHEM UA CBC 04/09/23 Patient has become increasingly depressed olanzapine Depakote could not effective for dysphoria irritability case reviewed dr nelson consider ect mirtazapine 04/10 Add Ambien 5 mg at hs 04/11: Continue current treatment plan. 04/12: Continue current treatment plan. 04/13: Continue current plan of care. 04/14 cont plan of care 04/15/23 Start trintellix 5mg daily 04/17/23 Continue treatment plan patient was seen 04/16 and 04/17 Mood generally improved less labile future oriented feels better able to try keep his future focus not current triggers in the inpatient setting nortriptyline has been increased 75 mg Trintellix 5 mg 04/19 keep same treatment 04/20/2023 Lower olanzapine 2.5 at bedtime continue p.r.n. 2.5 hopefully will help with feelings of sedation monitor mood 04/21 continue tx. 04/22 continue tx. 04/23/23 inc mirtazapine 15 hs alp 0.25 prn 04/24/23 inc hs alprazolam 0.5 hs 04/25 continue tx. 04/26 trazodone added back per pt request, remeron d/c. 04/27/23 pt doing better more stable cont plan of care 04/28/2023 Increase Trintellix to 10 mg daily encouragement reassurance regarding upcoming discharge transition 04/29/23 some dep sx monitor response to trintellix pressure of potential d/c and mtg for d/c planning 04/30/23 cont trintellix nortrip depakote 05/02: Continue current regimen and plans. 05/03: Continue current plans 05/04 restart ambien 5mg po qhs- felt off; start fluticasone for sinus congestion/pain with ibuprofen as needed; capsaisin for acute on chronic lower back pain. 05/05 continue tx. 05/06/2023 Continue plan of care needs much encouragement transitional meeting tomorrow 05/07/23 needs encouragement regarding placement d/c and ability to transition was overwhelmed initially improved later in day no si 05/08/23 Pt restart amlodpine encourage adaptation to transition and safety of hospital 05/09: Continue current treatment plan. 05/10: Continue current treatment plan. 05/13- continue tx. Reason for continued inpatient stay Substantial Risk for: stable for discharge Time Spent With Patient Time: Total time managing care of this patient today ____ minutes.
[2023-05-13] MEDS: Ibuprofen 600 MG TABLET PO (16:37)
[2023-05-13] MEDS: Artificial Tears 15 ML DROPS 1 DROP EYE-BOTH (21:42)
[2023-05-13] MEDS: Divalproex Sodium 250 MG TABLET.DR 750 MG PO (21:43)
[2023-05-13] MEDS: Latanoprost 0.005 % Ophth Sol 2.5 ML DROPS 1 DROP EYE-BOTH ×2 (21:43→22:09)
[2023-05-13] MEDS: Zolpidem Tartrate 5 MG TABLET PO (21:45)
[2023-05-13] MEDS: ALPRAZolam 0.5 MG TABLET PO (21:46)
[2023-05-13] MEDS: traZODone HCL 100 MG TABLET 200 MG PO (21:46)
[2023-05-13] MEDS: Nortriptyline HCl 25 MG CAPSULE 75 MG PO (21:47)
[2023-05-13] MEDS: OLANZapine 2.5 MG TABLET PO (21:47)
[2023-05-13] MEDS: Clotrimazole 1 % Cream 15 GM TUBE 1 APPL TOPICAL (21:54)
[2023-05-13] MEDS: Sennosides 8.6 MG TABLET 17.2 MG PO (22:05)
[2023-05-13] MEDS: Nystatin Powder 15 GM BOTTLE 1 APPL TOPICAL (22:09)
[2023-05-14 07:00] VITALS: BMI 30.8
[2023-05-14 11:28] VITALS: BP 133/65; PULSE 90; RESP 16; TEMP 36.7; O2SAT 95
[2023-05-14] MEDS: Naltrexone HCl 50 MG TABLET PO (11:29)
[2023-05-14] MEDS: ALPRAZolam 0.25 MG TABLET PO ×2 (11:29→15:40)
[2023-05-14] MEDS: amLODIPine Besylate 5 MG TABLET PO (11:29)
[2023-05-14] MEDS: Vortioxetine Hydrobromide 10 MG TABLET PO (11:29)
[2023-05-14] MEDS: Propranolol HCL 20 MG TABLET PO ×3 (11:30→21:32)
[2023-05-14] MEDS: Divalproex Sodium Sprinkles 125 MG CAP.DR.SPR PO (11:35)
[2023-05-14 14:37] VITALS: BP 126/68; PULSE 63
[2023-05-14] MEDS: polyethylene glycoL 3350 17 GM POWD.PACK PO (14:38)
[2023-05-14 19:50] VITALS: BP 120/62; PULSE 68; RESP 16; TEMP 36.4; O2SAT 98
[2023-05-14] MEDS: OLANZapine 2.5 MG TABLET PO (21:31)
[2023-05-14] MEDS: Zolpidem Tartrate 5 MG TABLET PO (21:32)
[2023-05-14] MEDS: ALPRAZolam 0.5 MG TABLET PO (21:33)
[2023-05-14] MEDS: traZODone HCL 100 MG TABLET 200 MG PO (21:34)
[2023-05-14] MEDS: Divalproex Sodium 250 MG TABLET.DR 750 MG PO (21:36)
[2023-05-14] MEDS: Nortriptyline HCl 25 MG CAPSULE 75 MG PO (21:38)
--- NOTE | 2023-05-14 22:36 | P.PNPSI_ITS ---
Subjective Subjective Date of Service: 05/14/23 Reason For Visit: Depression hopelessness irritability Subjective Notes: Conditional Voluntary Healthcare Proxy: No Guardianship: No Interim History: Pt anxious regarding d/c but future orieted Mental Status Exam Mental Status Exam Narrative: Appearance: casually dressed Behavior: cooperative Speech: clear, normal rate/rhythm/volume, spontaneous TP: linear TC: discharge plans Psychomotor: Mood: Fatigued anxious dysphoric Affect: constricted anxious SI: denies HI: none VH/AH: none Delusions: none SI; none HI: none Insight/judgment: fair x 2. Memory/cog: alert, oriented x 3. Diagnostics Vital Signs (24Hr): Vital Signs - 24 hr 05/14/23 11:28 05/14/23 14:37 05/14/23 19:50 Temperature 98.1 F 97.6 F Pulse Rate 90 63 68 Respiratory Rate 16 16 Blood Pressure 133/65 126/68 120/62 Pulse Oximetry 95 98 Oxygen Delivery Method Room Air Room Air BMI result Body Mass Index 30.8 Labs 04/09/23 07:59 04/09/23 07:59 Imaging Radiology Impressions: ITS Impressions Chest X-Ray 10/20/22 15:45 IMPRESSION: 1. Low lung volumes with bibasilar linear disc atelectasis versus scarring. 2. No airspace consolidation or effusion. Head CT 11/08/22 12:29 IMPRESSION: No acute intracranial hemorrhage or territorial infarction. Stable chronic postoperative changes with gliosis and encephalomalacia in the right frontal and right temporal lobes. Ex vacuo dilatation of the ventricles and diffuse parenchymal volume loss. Right-sided craniotomy changes. Chest X-Ray 11/12/22 10:32 IMPRESSION: Hypoexpanded lungs with bibasilar platelike atelectasis. Brain MRI 11/12/22 13:15 IMPRESSION: 1. No demonstrated acute intracranial abnormalities. 2. Chronic encephalomalacia of the right temporal, right frontal, and left occipital lobes. Small regions of chronic encephalomalacia in the parasagittal aspects of the bilateral parietal lobes. Moderate underlying microangiopathy and generalized cerebral volume loss. Chest X-Ray 11/14/22 15:52 IMPRESSION: Low lung volumes, bibasilar subsegmental atelectasis and slight elevation of the right hemidiaphragm similar to previous exam. Modified Barium Swallow 11/21/22 15:11 IMPRESSION: Laryngeal penetration on several occasions but no laryngeal aspiration. Mild retention of solid food in the valleculae which cleared with subsequent oral administration of water or thin barium. Correlate with speech therapy results. Orbit CT 01/23/23 14:05 IMPRESSION: - No definite significant intraorbital soft tissue findings to assessment is limited on a noncontrast CT of the orbits. No retrobulbar mass lesions and no cellulitic changes appreciated. - There are large fluid levels within the left maxillary sinus and within the right frontal sinus the can be correlated for clinical signs of acute sinusitis. - A peripherally ossified structure extending from the dorsal margin of the right nasolacrimal duct into the right maxillary sinus is stable when compared to examinations dated back to 08/24/2008 favoring a benign etiology. Cervical Spine CT 02/14/23 22:15 IMPRESSION: 1. No acute intracranial abnormality. Stable postsurgical changes with right frontotemporal encephalomalacia, global volume loss, and extraocular dilatation of the right lateral ventricle. 2. No cervical spine fracture or traumatic malalignment. Head CT 02/14/23 22:15 IMPRESSION: 1. No acute intracranial abnormality. Stable postsurgical changes with right frontotemporal encephalomalacia, global volume loss, and extraocular dilatation of the right lateral ventricle. 2. No cervical spine fracture or traumatic malalignment. Hip/Pelvis X-Ray 02/14/23 22:25 IMPRESSION: Moderate degenerative changes of the right hip with loss of superolateral joint space. Similar chronic posttraumatic deformity of the right femoral neck with chronic foreshortening. Status post left total hip arthroplasty in unchanged alignment however the lack of a crosstable lateral view limits assessment for dislocation. No acute fracture or dislocation appreciated on the available views. Foot X-Ray 02/22/23 13:50 IMPRESSION: * Postsurgical changes of arthrodesis first metatarsophalangeal joint. * There is developed large osteophyte from the head of the first metatarsal protruding laterally abutting the head of the second metatarsal. This might be the source of patient's pain. * Underlying degenerative osteoarthritis. Foot X-Ray 02/23/23 14:11 IMPRESSION: Mild degenerative changes MTP, PIP and DIP joints. No visible acute fracture or dislocation seen. Medications Medications Current Medications Acetaminophen (Acetaminophen 325 Mg Tablet) 650 mg PO Q6H PRN PRN Reason: Pain, Mild (Pain Scale 1-3) Last Admin: 05/12/23 22:15 Dose: 650 mg Albuterol Sulfate (Albuterol Sulfate 90 Mcg 8 Gm Inhaler) 2 puff INHALE RQ4H PRN PRN Reason: Shortness of Breath/Wheezing Alprazolam (Alprazolam 0.5 Mg Tablet) 0.5 mg PO BEDTIME TAZ Last Admin: 05/14/23 21:33 Dose: 0.5 mg Alprazolam (Alprazolam 0.25 Mg Tablet) 0.25 mg PO TID PRN PRN Reason: Anxiety Alprazolam (Alprazolam 0.25 Mg Tablet) 0.25 mg PO BID@0830,1430 TAZ Last Admin: 05/14/23 15:40 Dose: 0.25 mg Amlodipine Besylate (Amlodipine Besylate 5 Mg Tablet) 5 mg PO DAILY TAZ; Protocol Last Admin: 05/14/23 11:29 Dose: 5 mg Artificial Tears (Artificial Tears 15 Ml Drops) 1 drop EYE-BOTH Q2H PRN PRN Reason: Dry Eyes Last Admin: 05/13/23 21:42 Dose: 1 drop Bisacodyl (Bisacodyl 10 Mg Supp.Rect) 10 mg [place] DAILY PRN PRN Reason: Constipation Last Admin: 05/07/23 12:39 Dose: 10 mg Capsaicin (Capsaicin 0.025% Cream 60 Gm Tube) 1 appl TOPICAL BEDTIME TAZ; Protocol Last Admin: 05/14/23 22:24 Dose: Not Given Clotrimazole (Clotrimazole 1 % Cream 15 Gm Tube) 1 appl TOPICAL BEDTIME TAZ; Protocol Last Admin: 05/14/23 22:25 Dose: Not Given [place] Butter/Zinc Oxide ([place] Butter/Zinc Oxide Supp.Rect) 1 supp [place] BID PRN PRN Reason: Hemorrhoids Divalproex Sodium (Divalproex Sodium 250 Mg Tablet.Dr) 750 mg PO BEDTIME TAZ Last Admin: 05/14/23 21:36 Dose: 750 mg Divalproex Sodium (Divalproex Sodium Sprinkles 125 Mg Cap.Dr.Spr) 125 mg PO DAILY@1200 TAZ Last Admin: 05/14/23 11:35 Dose: 125 mg Fluticasone Propionate (Fluticasone Propionate Nasal 16 Gm Robinson) 2 spray NOSTRIL-B DAILY PRN PRN Reason: nasal congestion Guaifenesin/Dextromethorphan (Guaifenesin Dm 100/10/5 Ml 5 Ml Syrup) 5 ml PO Q4H PRN PRN Reason: cough Last Admin: 05/12/23 01:29 Dose: 5 ml Hydrocortisone (Hydrocortisone 1 % Cream 28.35 Gm Tube) 1 appl TOPICAL BID PRN; Protocol PRN Reason: itchy feet Last Admin: 04/12/23 21:27 Dose: 1 appl Hydroxyzine HCl (Hydroxyzine Hcl 25 Mg Tablet) 25 mg PO Q4H PRN PRN Reason: Anxiety Last Admin: 05/07/23 01:09 Dose: 25 mg Ibuprofen (Ibuprofen 600 Mg Tablet) 600 mg PO Q6H PRN PRN Reason: Pain, Moderate(Pain Scale 4-6) Last Admin: 05/13/23 16:37 Dose: 600 mg Latanoprost (Latanoprost 0.005 % Ophth No 2.5 Ml Drops) 1 drop EYE-BOTH BEDTIME TAZ Last Admin: 05/14/23 22:26 Dose: Not Given Lidocaine (Lidocaine 5 % Ointment 35 Gm) 1 appl TOPICAL Q6H PRN; Protocol PRN Reason: pain r foot Last Admin: 05/10/23 21:04 Dose: 1 appl Magnesium Hydroxide (Milk Of Magnesia 30 Ml Oral.Susp) 30 ml PO BID PRN PRN Reason: constipation, stomach/GI upset Last Admin: 04/06/23 21:24 Dose: 30 ml Naltrexone HCl (Naltrexone Hcl 50 Mg Tablet) 50 mg PO DAILY TAZ Last Admin: 05/14/23 11:29 Dose: 50 mg Nortriptyline HCl (Nortriptyline Hcl 25 Mg Capsule) 75 mg PO BEDTIME TAZ Last Admin: 05/14/23 21:38 Dose: 75 mg Nystatin (Nystatin Powder 15 Gm Bottle) 1 appl TOPICAL BEDTIME TAZ; Protocol Last Admin: 05/14/23 22:27 Dose: Not Given Olanzapine (Olanzapine 2.5 Mg Tablet) 2.5 mg PO Q4H PRN PRN Reason: anxiety/restlessness Last Admin: 04/28/23 03:25 Dose: 2.5 mg Olanzapine (Olanzapine 2.5 Mg Tablet) 2.5 mg PO BEDTIME TAZ Last Admin: 05/14/23 21:31 Dose: 2.5 mg Ondansetron HCl (Ondansetron Odt 4 Mg Tab.Rapdis) 4 mg TRANSLINGU Q6H PRN PRN Reason: Nausea and Vomiting Last Admin: 03/20/23 09:13 Dose: 4 mg Polyethylene Glycol (Polyethylene Glycol 3350 17 Gm Powd.Pack) 17 gm PO DAILY PRN PRN Reason: Constipation Last Admin: 05/14/23 14:38 Dose: 17 gm Propranolol HCl (Propranolol Hcl 20 Mg Tablet) 20 mg PO TID TAZ; Protocol Last Admin: 05/14/23 21:32 Dose: 20 mg Senna (Sennosides 8.6 Mg Tablet) 17.2 mg PO Q24H PRN PRN Reason: Constipation Last Admin: 05/13/23 22:05 Dose: 8.6 mg Trazodone HCl (Trazodone Hcl 100 Mg Tablet) 200 mg PO BEDTIME TAZ Last Admin: 05/14/23 21:34 Dose: 200 mg Vortioxetine (Vortioxetine Hydrobromide 10 Mg Tablet) 10 mg PO DAILY TAZ Last Admin: 05/14/23 11:29 Dose: 10 mg Zolpidem Tartrate (Zolpidem Tartrate 5 Mg Tablet) 5 mg PO BEDTIME TAZ Last Admin: 05/14/23 21:32 Dose: 5 mg Allergies Allergies Allergy/AdvReac Type Severity Reaction Status Date / Time fentanyl [FENTANYL] Allergy Intermediate unknown Verified 04/08/22 07:00 Assessment & Plan Assessment & Plan (1) Major depressive disorder, recurrent severe without psychotic features: Status: Acute Code(s): F33.2 - Major depressive disorder, recurrent severe without psychotic features (2) Cognitive and neurobehavioral dysfunction following brain injury: Status: Acute Code(s): G31.89 - Other specified degenerative diseases of nervous system; F09 - Unspecified mental disorder due to known physiological condition; S06.9X9S - Unspecified intracranial injury with loss of consciousness of unspecified duration, sequela (3) Personality disorder in adult: Status: Acute Code(s): F60.9 - Personality disorder, unspecified Plan ALPRAZOLAM 0.25 B.I.D. 0.5 BEDTIME OLANZAPINE ALSO 3 TIMES A DAY CONTINUE DEPAKOTE START PROPRANOLOL 10 T.I.D. THE PATIENT CONFRONTED REGARDING NEGATIVE TOXIC BEHAVIOR DIFFICULTY COPING AND NEGATIVE COMPLICATIONS TO HIS LIFE IF CONTINUE VERBALLY AGGRESSIVE AND TOXIC BEHAVIOR WITH OTHERS DEVALUATION ENCOURAGE REFLECTION STRESS MANAGEMENT COPING STRATEGIES 03/07 continue same treatment 03/08 continue same treatment 03/09 continue same treatment 03/10/23 Lower alprazolam .125 mg bid hold afternoon olanzapine secondary to slurring oversedation cont propranolol 03/11/23 Pt doing better less sedated struggles to maintain pos attitude 03/13 continue tx. 03/14: stable presentation, no change in mgmt. 03/15: appears sedated. no change in mgmt today. to F/U with attending tomorrow re meds for anxiety. 03/16 continue tx. 03/17 continue tx. 03/18 continue tx. 03/19 continue tx. 03/22 continue tx. 03/23 continue tx. 03/24/2023 Continue treatment plan discharge planning 03/25/2023 Continue plan of care 03/26/2023 Continued discharge planning needs much reassurance 03/27 continue tx. 03/28: Continue treatment plan. 03/29: Continue current treatment plan 03/30 continue tx. 03/31 continue tx. 04/02 no changes in treatment 04/03/2023 Patient more reactive belligerent kicked out at another person and was reactive with staff and aggressive. Seems much more triggered by stimulation difficulty reflecting discussed with patient increasing olanzapine alprazolam for behavioral control 04/07/23 Cont depakote olanzpine alprazolam encourage strategies to deal with triggers d/c planning 04/08/2023 Depakote increased by 125 mg nortriptyline increased continue discharge planning CK CHEM UA CBC 04/09/23 Patient has become increasingly depressed olanzapine Depakote could not effective for dysphoria irritability case reviewed dr nelson consider ect mirtazapine 04/10 Add Ambien 5 mg at hs 04/11: Continue current treatment plan. 04/12: Continue current treatment plan. 04/13: Continue current plan of care. 04/14 cont plan of care 04/15/23 Start trintellix 5mg daily 04/17/23 Continue treatment plan patient was seen 04/16 and 04/17 Mood generally improved less labile future oriented feels better able to try keep his future focus not current triggers in the inpatient setting nortriptyli ne has been increased 75 mg Trintellix 5 mg 04/19 keep same treatment 04/20/2023 Lower olanzapine 2.5 at bedtime continue p.r.n. 2.5 hopefully will help with feelings of sedation monitor mood 04/21 continue tx. 04/22 continue tx. 04/23/23 inc mirtazapine 15 hs alp 0.25 prn 04/24/23 inc hs alprazolam 0.5 hs 04/25 continue tx. 04/26 trazodone added back per pt request, remeron d/c. 04/27/23 pt doing better more stable cont plan of care 04/28/2023 Increase Trintellix to 10 mg daily encouragement reassurance regarding upcoming discharge transition 04/29/23 some dep sx monitor response to trintellix pressure of potential d/c and mtg for d/c planning 04/30/23 cont trintellix nortrip depakote 05/02: Continue current regimen and plans. 05/03: Continue current plans 05/04 restart ambien 5mg po qhs- felt off; start fluticasone for sinus congestion/pain with ibuprofen as needed; capsaisin for acute on chronic lower back pain. 05/05 continue tx. 05/06/2023 Continue plan of care needs much encouragement transitional meeting tomorrow 05/07/23 needs encouragement regarding placement d/c and ability to transition was overwhelmed initially improved later in day no si 05/08/23 Pt restart amlodpine encourage adaptation to transition and safety of hospital 05/09: Continue current treatment plan. 05/10: Continue current treatment plan. 05/13- continue tx. 05/14/23 send d/c meds anxious not overly depressed cont tx Patient educated on: therapeutic strategies Reason for continued inpatient stay Substantial Risk for: med/psych decompensation Time Spent With Patient Time: Total time managing care of this patient today ____ minutes.
[2023-05-15 08:20] VITALS: BP 110/58; PULSE 66; RESP 18; TEMP 35.9; O2SAT 96
[2023-05-15] MEDS: polyethylene glycoL 3350 17 GM POWD.PACK PO (08:30)
[2023-05-15] MEDS: amLODIPine Besylate 5 MG TABLET PO (08:31)
[2023-05-15] MEDS: Propranolol HCL 20 MG TABLET PO ×3 (08:31→20:41)
[2023-05-15] MEDS: Vortioxetine Hydrobromide 10 MG TABLET PO (08:31)
[2023-05-15] MEDS: ALPRAZolam 0.25 MG TABLET PO ×2 (08:31→14:00)
[2023-05-15] MEDS: Naltrexone HCl 50 MG TABLET PO (08:31)
[2023-05-15] MEDS: Divalproex Sodium Sprinkles 125 MG CAP.DR.SPR PO (12:09)
[2023-05-15] MEDS: Milk of Magnesia 30 ML ORAL.SUSP PO (13:00)
[2023-05-15 13:47] VITALS: BP 117/59; PULSE 66
--- NOTE | 2023-05-15 16:57 | HO.PSYCHPN ---
Subjective Subjective Date of Service: 05/15/23 Reason For Visit: Depression hopelessness irritability Subjective Notes: Conditional Voluntary Interim History: pt seems more stable dable to review discharge issues problem solve not overly sedated monitor response Mental Status Exam Mental Status Exam Narrative: Appearance: casually dressed Behavior: cooperative Speech: clear, normal rate/rhythm/volume, spontaneous TP: linear TC: discharge plans Psychomotor: Mood: Fatigued anxious dysphoric Affect: constricted anxious SI: denies HI: none VH/AH: none Delusions: none SI; none HI: none Insight/judgment: fair x 2. Memory/cog: alert, oriented x 3. Diagnostics Vital Signs (24Hr): Vital Signs - 24 hr 05/14/23 19:50 05/15/23 08:20 05/15/23 13:47 Temperature 97.6 F 96.7 F L Pulse Rate 68 66 66 Respiratory Rate 16 18 Blood Pressure 120/62 110/58 L 117/59 L Pulse Oximetry 98 96 Oxygen Delivery Method Room Air Room Air BMI result Body Mass Index 30.8 Labs 04/09/23 07:59 04/09/23 07:59 Imaging Radiology Impressions: ITS Impressions Chest X-Ray 10/20/22 15:45 IMPRESSION: 1. Low lung volumes with bibasilar linear disc atelectasis versus scarring. 2. No airspace consolidation or effusion. Head CT 11/08/22 12:29 IMPRESSION: No acute intracranial hemorrhage or territorial infarction. Stable chronic postoperative changes with gliosis and encephalomalacia in the right frontal and right temporal lobes. Ex vacuo dilatation of the ventricles and diffuse parenchymal volume loss. Right-sided craniotomy changes. Chest X-Ray 11/12/22 10:32 IMPRESSION: Hypoexpanded lungs with bibasilar platelike atelectasis. Brain MRI 11/12/22 13:15 IMPRESSION: 1. No demonstrated acute intracranial abnormalities. 2. Chronic encephalomalacia of the right temporal, right frontal, and left occipital lobes. Small regions of chronic encephalomalacia in the parasagittal aspects of the bilateral parietal lobes. Moderate underlying microangiopathy and generalized cerebral volume loss. Chest X-Ray 11/14/22 15:52 IMPRESSION: Low lung volumes, bibasilar subsegmental atelectasis and slight elevation of the right hemidiaphragm similar to previous exam. Modified Barium Swallow 11/21/22 15:11 IMPRESSION: Laryngeal penetration on several occasions but no laryngeal aspiration. Mild retention of solid food in the valleculae which cleared with subsequent oral administration of water or thin barium. Correlate with speech therapy results. Orbit CT 01/23/23 14:05 IMPRESSION: - No definite significant intraorbital soft tissue findings to assessment is limited on a noncontrast CT of the orbits. No retrobulbar mass lesions and no cellulitic changes appreciated. - There are large fluid levels within the left maxillary sinus and within the right frontal sinus the can be correlated for clinical signs of acute sinusitis. - A peripherally ossified structure extending from the dorsal margin of the right nasolacrimal duct into the right maxillary sinus is stable when compared to examinations dated back to 08/24/2008 favoring a benign etiology. Cervical Spine CT 02/14/23 22:15 IMPRESSION: 1. No acute intracranial abnormality. Stable postsurgical changes with right frontotemporal encephalomalacia, global volume loss, and extraocular dilatation of the right lateral ventricle. 2. No cervical spine fracture or traumatic malalignment. Head CT 02/14/23 22:15 IMPRESSION: 1. No acute intracranial abnormality. Stable postsurgical changes with right frontotemporal encephalomalacia, global volume loss, and extraocular dilatation of the right lateral ventricle. 2. No cervical spine fracture or traumatic malalignment. Hip/Pelvis X-Ray 02/14/23 22:25 IMPRESSION: Moderate degenerative changes of the right hip with loss of superolateral joint space. Similar chronic posttraumatic deformity of the right femoral neck with chronic foreshortening. Status post left total hip arthroplasty in unchanged alignment however the lack of a crosstable lateral view limits assessment for dislocation. No acute fracture or dislocation appreciated on the available views. Foot X-Ray 02/22/23 13:50 IMPRESSION: * Postsurgical changes of arthrodesis first metatarsophalangeal joint. * There is developed large osteophyte from the head of the first metatarsal protruding laterally abutting the head of the second metatarsal. This might be the source of patient's pain. * Underlying degenerative osteoarthritis. Foot X-Ray 02/23/23 14:11 IMPRESSION: Mild degenerative changes MTP, PIP and DIP joints. No visible acute fracture or dislocation seen. Medications Medications Current Medications Acetaminophen (Acetaminophen 325 Mg Tablet) 650 mg PO Q6H PRN PRN Reason: Pain, Mild (Pain Scale 1-3) Last Admin: 05/12/23 22:15 Dose: 650 mg Albuterol Sulfate (Albuterol Sulfate 90 Mcg 8 Gm Inhaler) 2 puff INHALE RQ4H PRN PRN Reason: Shortness of Breath/Wheezing Alprazolam (Alprazolam 0.5 Mg Tablet) 0.5 mg PO BEDTIME TAZ Last Admin: 05/14/23 21:33 Dose: 0.5 mg Alprazolam (Alprazolam 0.25 Mg Tablet) 0.25 mg PO TID PRN PRN Reason: Anxiety Alprazolam (Alprazolam 0.25 Mg Tablet) 0.25 mg PO BID@0830,1430 TAZ Last Admin: 05/15/23 14:00 Dose: 0.25 mg Amlodipine Besylate (Amlodipine Besylate 5 Mg Tablet) 5 mg PO DAILY [facility]; Protocol Last Admin: 05/15/23 08:31 Dose: 5 mg Artificial Tears (Artificial Tears 15 Ml Drops) 1 drop EYE-BOTH Q2H PRN PRN Reason: Dry Eyes Last Admin: 05/13/23 21:42 Dose: 1 drop Bisacodyl (Bisacodyl 10 Mg Supp.Rect) 10 mg TN DAILY PRN PRN Reason: Constipation Last Admin: 05/07/23 12:39 Dose: 10 mg Capsaicin (Capsaicin 0.025% Cream 60 Gm Tube) 1 appl TOPICAL BEDTIME TAZ; Protocol Last Admin: 05/14/23 22:24 Dose: Not Given Clotrimazole (Clotrimazole 1 % Cream 15 Gm Tube) 1 appl TOPICAL BEDTIME TAZ; Protocol Last Admin: 05/14/23 22:25 Dose: Not Given [place] Butter/Zinc Oxide ([place] Butter/Zinc Oxide Supp.Rect) 1 supp TN BID PRN PRN Reason: Hemorrhoids Divalproex Sodium (Divalproex Sodium 250 Mg Tablet.Dr) 750 mg PO BEDTIME TAZ Last Admin: 05/14/23 21:36 Dose: 750 mg Divalproex Sodium (Divalproex Sodium Sprinkles 125 Mg Cap.DrHomero) 125 mg PO DAILY@1200 TAZ Last Admin: 05/15/23 12:09 Dose: 125 mg Fluticasone Propionate (Fluticasone Propionate Nasal 16 Gm [place]) 2 spray NOSTRIL-B DAILY PRN PRN Reason: nasal congestion Guaifenesin/Dextromethorphan (Guaifenesin Dm 100/10/5 Ml 5 Ml Syrup) 5 ml PO Q4H PRN PRN Reason: cough Last Admin: 05/12/23 01:29 Dose: 5 ml Hydrocortisone (Hydrocortisone 1 % Cream 28.35 Gm Tube) 1 appl TOPICAL BID PRN; Protocol PRN Reason: itchy feet Last Admin: 04/12/23 21:27 Dose: 1 appl Hydroxyzine HCl (Hydroxyzine Hcl 25 Mg Tablet) 25 mg PO Q4H PRN PRN Reason: Anxiety Last Admin: 05/07/23 01:09 Dose: 25 mg Ibuprofen (Ibuprofen 600 Mg Tablet) 600 mg PO Q6H PRN PRN Reason: Pain, Moderate(Pain Scale 4-6) Last Admin: 05/13/23 16:37 Dose: 600 mg Latanoprost (Latanoprost 0.005 % Ophth No 2.5 Ml Drops) 1 drop EYE-BOTH BEDTIME TAZ Last Admin: 05/14/23 22:26 Dose: Not Given Lidocaine (Lidocaine 5 % Ointment 35 Gm) 1 appl TOPICAL Q6H PRN; Protocol PRN Reason: pain r foot Last Admin: 05/10/23 21:04 Dose: 1 appl Magnesium Hydroxide (Milk Of Magnesia 30 Ml Oral.Susp) 30 ml PO BID PRN PRN Reason: constipation, stomach/GI upset Last Admin: 05/15/23 13:00 Dose: 30 ml Naltrexone HCl (Naltrexone Hcl 50 Mg Tablet) 50 mg PO DAILY TAZ Last Admin: 05/15/23 08:31 Dose: 50 mg Nortriptyline HCl (Nortriptyline Hcl 25 Mg Capsule) 75 mg PO BEDTIME TAZ Last Admin: 05/14/23 21:38 Dose: 75 mg Nystatin (Nystatin Powder 15 Gm Bottle) 1 appl TOPICAL BEDTIME TAZ; Protocol Last Admin: 05/14/23 22:27 Dose: Not Given Olanzapine (Olanzapine 2.5 Mg Tablet) 2.5 mg PO Q4H PRN PRN Reason: anxiety/restlessness Last Admin: 04/28/23 03:25 Dose: 2.5 mg Olanzapine (Olanzapine 2.5 Mg Tablet) 2.5 mg PO BEDTIME ATZ Last Admin: 05/14/23 21:31 Dose: 2.5 mg Ondansetron HCl (Ondansetron Odt 4 Mg Tab.Rapdis) 4 mg TRANSLINGU Q6H PRN PRN Reason: Nausea and Vomiting Last Admin: 03/20/23 09:13 Dose: 4 mg Polyethylene Glycol (Polyethylene Glycol 3350 17 Gm Powd.Pack) 17 gm PO DAILY PRN PRN Reason: Constipation Last Admin: 05/15/23 08:30 Dose: 17 gm Propranolol HCl (Propranolol Hcl 20 Mg Tablet) 20 mg PO TID TAZ; Protocol Last Admin: 05/15/23 14:00 Dose: 20 mg Senna (Sennosides 8.6 Mg Tablet) 17.2 mg PO Q24H PRN PRN Reason: Constipation Last Admin: 05/13/23 22:05 Dose: 8.6 mg Trazodone HCl (Trazodone Hcl 100 Mg Tablet) 200 mg PO BEDTIME TAZ Last Admin: 05/14/23 21:34 Dose: 200 mg Vortioxetine (Vortioxetine Hydrobromide 10 Mg Tablet) 10 mg PO DAILY [facility] Last Admin: 05/15/23 08:31 Dose: 10 mg Zolpidem Tartrate (Zolpidem Tartrate 5 Mg Tablet) 5 mg PO BEDTIME TAZ Last Admin: 05/14/23 21:32 Dose: 5 mg Allergies Allergies Allergy/AdvReac Type Severity Reaction Status Date / Time fentanyl [FENTANYL] Allergy Intermediate unknown Verified 04/08/22 07:00 Assessment & Plan Assessment & Plan (1) Major depressive disorder, recurrent severe without psychotic features: Status: Acute Code(s): F33.2 - Major depressive disorder, recurrent severe without psychotic features (2) Cognitive and neurobehavioral dysfunction following brain injury: Status: Acute Code(s): G31.89 - Other specified degenerative diseases of nervous system; F09 - Unspecified mental disorder due to known physiological condition; S06.9X9S - Unspecified intracranial injury with loss of consciousness of unspecified duration, sequela (3) Personality disorder in adult: Status: Acute Code(s): F60.9 - Personality disorder, unspecified Plan ALPRAZOLAM 0.25 B.I.D. 0.5 BEDTIME OLANZAPINE ALSO 3 TIMES A DAY CONTINUE DEPAKOTE START PROPRANOLOL 10 T.I.D. THE PATIENT CONFRONTED REGARDING NEGATIVE TOXIC BEHAVIOR DIFFICULTY COPING AND NEGATIVE COMPLICATIONS TO HIS LIFE IF CONTINUE VERBALLY AGGRESSIVE AND TOXIC BEHAVIOR WITH OTHERS DEVALUATION ENCOURAGE REFLECTION STRESS MANAGEMENT COPING STRATEGIES 03/07 continue same treatment 03/08 continue same treatment 03/09 continue same treatment 03/10/23 Lower alprazolam .125 mg bid hold afternoon olanzapine secondary to slurring oversedation cont propranolol 03/11/23 Pt doing better less sedated struggles to maintain pos attitude 03/13 continue tx. 03/14: stable presentation, no change in mgmt. 03/15: appears sedated. no change in mgmt today. to F/U with attending tomorrow re meds for anxiety. 03/16 continue tx. 03/17 continue tx. 03/18 continue tx. 03/19 continue tx. 03/22 continue tx. 03/23 continue tx. 03/24/2023 Continue treatment plan discharge planning 03/25/2023 Continue plan of care 03/26/2023 Continued discharge planning needs much reassurance 03/27 continue tx. 03/28: Continue treatment plan. 03/29: Continue current treatment plan 03/30 continue tx. 03/31 continue tx. 04/02 no changes in treatment 04/03/2023 Patient more reactive belligerent kicked out at another person and was reactive with staff and aggressive. Seems much more triggered by stimulation difficulty reflecting discussed with patient increasing olanzapine alprazolam for behavioral control 04/07/23 Cont depakote olanzpine alprazolam encourage strategies to deal with triggers d/c planning 04/08/2023 Depakote increased by 125 mg nortriptyline increased continue discharge planning CK CHEM UA CBC 04/09/23 Patient has become increasingly depressed olanzapine Depakote could not effective for dysphoria irritability case reviewed dr nelson consider ect mirtazapine 04/10 Add Ambien 5 mg at hs 04/11: Continue current treatment plan. 04/12: Continue current treatment plan. 04/13: Continue current plan of care. 04/14 cont plan of care 04/15/23 Start trintellix 5mg daily 04/17/23 Continue treatment plan patient was seen 04/16 and 04/17 Mood generally improved less labile future oriented feels better able to try keep his future focus not current triggers in the inpatient setting nortriptyline has been increased 75 mg Trintellix 5 mg 04/19 keep same treatment 04/20/2023 Lower olanzapine 2.5 at bedtime continue p.r.n. 2.5 hopefully will help with feelings of sedation monitor mood 04/21 continue tx. 04/22 continue tx. 04/23/23 inc mirtazapine 15 hs alp 0.25 prn 04/24/23 inc hs alprazolam 0.5 hs 04/25 continue tx. 04/26 trazodone added back per pt request, remeron d/c. 04/27/23 pt doing better more stable cont plan of care 04/28/2023 Increase Trintellix to 10 mg daily encouragement reassurance regarding upcoming discharge transition 04/29/23 some dep sx monitor response to trintellix pressure of potential d/c and mtg for d/c planning 04/30/23 cont trintellix nortrip depakote 05/02: Continue current regimen and plans. 05/03: Continue current plans 05/04 restart ambien 5mg po qhs- felt off; start fluticasone for sinus congestion/pain with ibuprofen as needed; capsaisin for acute on chronic lower back pain. 05/05 continue tx. 05/06/2023 Continue plan of care needs much encouragement transitional meeting tomorrow 05/07/23 needs encouragement regarding placement d/c and ability to transition was overwhelmed initially improved later in day no si 05/08/23 Pt restart amlodpine encourage adaptation to transition and safety of hospital 05/09: Continue current treatment plan. 05/10: Continue current treatment plan. 05/13- continue tx. 05/14/23 send d/c meds anxious not overly depressed cont tx 05/15/23 d/c planning cont tx plan Reason for continued inpatient stay Substantial Risk for: rapid decompensation and med/psych decompensation Time Spent With Patient Time: Total time managing care of this patient today ____ minutes.
[2023-05-15 18:00] VITALS: BP 122/68; PULSE 62; RESP 18; TEMP 36.1; O2SAT 97
[2023-05-15] MEDS: Nortriptyline HCl 25 MG CAPSULE 75 MG PO (20:41)
[2023-05-15] MEDS: traZODone HCL 100 MG TABLET 200 MG PO (20:41)
[2023-05-15] MEDS: Divalproex Sodium 250 MG TABLET.DR 750 MG PO (20:41)
[2023-05-15] MEDS: ALPRAZolam 0.5 MG TABLET PO (20:42)
[2023-05-15] MEDS: OLANZapine 2.5 MG TABLET PO (20:42)
[2023-05-15] MEDS: Zolpidem Tartrate 5 MG TABLET PO (20:42)
[2023-05-15] MEDS: Artificial Tears 15 ML DROPS 1 DROP EYE-BOTH (20:42)
[2023-05-15] MEDS: Latanoprost 0.005 % Ophth Sol 2.5 ML DROPS 1 DROP EYE-BOTH (20:42)
[2023-05-15] MEDS: Acetaminophen 325 MG TABLET 650 MG PO (20:45)
[2023-05-15] MEDS: Lidocaine 5 % Ointment 35 GM 1 APPL TOPICAL (20:49)
[2023-05-15] MEDS: Nystatin Powder 15 GM BOTTLE 1 APPL TOPICAL (20:50)
[2023-05-16 09:00] VITALS: BP 122/69; PULSE 63; RESP 16; TEMP 36; O2SAT 97
[2023-05-16] MEDS: Acetaminophen 325 MG TABLET 650 MG PO (09:09)
[2023-05-16] MEDS: amLODIPine Besylate 5 MG TABLET PO (09:11)
[2023-05-16] MEDS: Propranolol HCL 20 MG TABLET PO ×3 (09:11→20:40)
[2023-05-16] MEDS: ALPRAZolam 0.25 MG TABLET PO ×2 (09:11→15:34)
[2023-05-16] MEDS: Vortioxetine Hydrobromide 10 MG TABLET PO (09:11)
[2023-05-16] MEDS: Naltrexone HCl 50 MG TABLET PO (09:11)
[2023-05-16] MEDS: polyethylene glycoL 3350 17 GM POWD.PACK PO (09:12)
[2023-05-16] MEDS: Divalproex Sodium Sprinkles 125 MG CAP.DR.SPR PO (13:35)
[2023-05-16] MEDS: Milk of Magnesia 30 ML ORAL.SUSP PO (13:35)
[2023-05-16 15:15] VITALS: BP 105/68; PULSE 64
--- NOTE | 2023-05-16 16:00 | HO.PSYCHPN ---
Subjective Subjective Date of Service: 05/16/23 Reason For Visit: Depression hopelessness irritability Interim History: Pt was seen and discussed in team today. He is in the milieu, not involved in group activity, but watching television and talking with team and peers. Record reviewed. Team report pt will discharge to a half-way on 05/20/23 in transition to his personal home with staff when it is completed. Team reports medication compliance. Pt has been cooperative, engaged, reports eating and sleeping appropriately for needs. No dangerous behaviors or agitation noted. Medication Compliance: Yes Side effects from medications: No Attending Groups: Intermittent Review of Systems Acute medical concerns: No Medical Review of Systems: unchanged Mental Status Exam Mental Status Exam Patient Appearance: Appropriate Patient Orientation: Person, Place and Situation Level of Consciousness: Alert Patient Behavior: Appropriate Mood Description: Appropriate Affect Description: Appropriate Ability to Follow Directions: Good Speech Pattern: Spontaneous Speech and Long Pauses Memory Description: Episodic Impaired Hallucinations: None Delusions: Not Present Thought Process: Distracted Thought Content: positive for Circumstantial Depressive Symptoms: Thoughts of /Suicide Judgement: Fair Diagnostics Vital Signs (24Hr): Vital Signs - 24 hr 05/15/23 18:00 05/16/23 09:00 05/16/23 15:15 Temperature 97 F 96.8 F Pulse Rate 62 63 64 Respiratory Rate 18 16 Blood Pressure 122/68 122/69 105/68 Pulse Oximetry 97 97 Oxygen Delivery Method Room Air Room Air BMI result Body Mass Index 30.8 Labs 04/09/23 07:59 04/09/23 07:59 Imaging Radiology Impressions: ITS Impressions Chest X-Ray 10/20/22 15:45 IMPRESSION: 1. Low lung volumes with bibasilar linear disc atelectasis versus scarring. 2. No airspace consolidation or effusion. Head CT 11/08/22 12:29 IMPRESSION: No acute intracranial hemorrhage or territorial infarction. Stable chronic postoperative changes with gliosis and encephalomalacia in the right frontal and right temporal lobes. Ex vacuo dilatation of the ventricles and diffuse parenchymal volume loss. Right-sided craniotomy changes. Chest X-Ray 11/12/22 10:32 IMPRESSION: Hypoexpanded lungs with bibasilar platelike atelectasis. Brain MRI 11/12/22 13:15 IMPRESSION: 1. No demonstrated acute intracranial abnormalities. 2. Chronic encephalomalacia of the right temporal, right frontal, and left occipital lobes. Small regions of chronic encephalomalacia in the parasagittal aspects of the bilateral parietal lobes. Moderate underlying microangiopathy and generalized cerebral volume loss. Chest X-Ray 11/14/22 15:52 IMPRESSION: Low lung volumes, bibasilar subsegmental atelectasis and slight elevation of the right hemidiaphragm similar to previous exam. Modified Barium Swallow 11/21/22 15:11 IMPRESSION: Laryngeal penetration on several occasions but no laryngeal aspiration. Mild retention of solid food in the valleculae which cleared with subsequent oral administration of water or thin barium. Correlate with speech therapy results. Orbit CT 01/23/23 14:05 IMPRESSION: - No definite significant intraorbital soft tissue findings to assessment is limited on a noncontrast CT of the orbits. No retrobulbar mass lesions and no cellulitic changes appreciated. - There are large fluid levels within the left maxillary sinus and within the right frontal sinus the can be correlated for clinical signs of acute sinusitis. - A peripherally ossified structure extending from the dorsal margin of the right nasolacrimal duct into the right maxillary sinus is stable when compared to examinations dated back to 08/24/2008 favoring a benign etiology. Cervical Spine CT 02/14/23 22:15 IMPRESSION: 1. No acute intracranial abnormality. Stable postsurgical changes with right frontotemporal encephalomalacia, global volume loss, and extraocular dilatation of the right lateral ventricle. 2. No cervical spine fracture or traumatic malalignment. Head CT 02/14/23 22:15 IMPRESSION: 1. No acute intracranial abnormality. Stable postsurgical changes with right frontotemporal encephalomalacia, global volume loss, and extraocular dilatation of the right lateral ventricle. 2. No cervical spine fracture or traumatic malalignment. Hip/Pelvis X-Ray 02/14/23 22:25 IMPRESSION: Moderate degenerative changes of the right hip with loss of superolateral joint space. Similar chronic posttraumatic deformity of the right femoral neck with chronic foreshortening. Status post left total hip arthroplasty in unchanged alignment however the lack of a crosstable lateral view limits assessment for dislocation. No acute fracture or dislocation appreciated on the available views. Foot X-Ray 02/22/23 13:50 IMPRESSION: * Postsurgical changes of arthrodesis first metatarsophalangeal joint. * There is developed large osteophyte from the head of the first metatarsal protruding laterally abutting the head of the second metatarsal. This might be the source of patient's pain. * Underlying degenerative osteoarthritis. Foot X-Ray 02/23/23 14:11 IMPRESSION: Mild degenerative changes MTP, PIP and DIP joints. No visible acute fracture or dislocation seen. Medications Medications Current Medications Acetaminophen (Acetaminophen 325 Mg Tablet) 650 mg PO Q6H PRN PRN Reason: Pain, Mild (Pain Scale 1-3) Last Admin: 05/16/23 09:09 Dose: 650 mg Albuterol Sulfate (Albuterol Sulfate 90 Mcg 8 Gm Inhaler) 2 puff INHALE RQ4H PRN PRN Reason: Shortness of Breath/Wheezing Alprazolam (Alprazolam 0.5 Mg Tablet) 0.5 mg PO BEDTIME TAZ Last Admin: 05/15/23 20:42 Dose: 0.5 mg Alprazolam (Alprazolam 0.25 Mg Tablet) 0.25 mg PO TID PRN PRN Reason: Anxiety Alprazolam (Alprazolam 0.25 Mg Tablet) 0.25 mg PO BID@0830,1430 [facility] Last Admin: 05/16/23 15:34 Dose: 0.25 mg Amlodipine Besylate (Amlodipine Besylate 5 Mg Tablet) 5 mg PO DAILY TAZ; Protocol Last Admin: 05/16/23 09:11 Dose: 5 mg Artificial Tears (Artificial Tears 15 Ml Drops) 1 drop EYE-BOTH Q2H PRN PRN Reason: Dry Eyes Last Admin: 05/15/23 20:42 Dose: 1 drop Bisacodyl (Bisacodyl 10 Mg Supp.Rect) 10 mg NM DAILY PRN PRN Reason: Constipation Last Admin: 05/07/23 12:39 Dose: 10 mg Capsaicin (Capsaicin 0.025% Cream 60 Gm Tube) 1 appl TOPICAL BEDTIME TAZ; Protocol Last Admin: 05/15/23 20:58 Dose: Not Given Clotrimazole (Clotrimazole 1 % Cream 15 Gm Tube) 1 appl TOPICAL BEDTIME TAZ; Protocol Last Admin: 05/15/23 20:57 Dose: Not Given [place] Butter/Zinc Oxide ([place] Butter/Zinc Oxide Supp.Rect) 1 supp NM BID PRN PRN Reason: Hemorrhoids Divalproex Sodium (Divalproex Sodium 250 Mg Tablet.Dr) 750 mg PO BEDTIME TAZ Last Admin: 05/15/23 20:41 Dose: 750 mg Divalproex Sodium (Divalproex Sodium Sprinkles 125 Mg Cap.) 125 mg PO DAILY@1200 TAZ Last Admin: 05/16/23 13:35 Dose: 125 mg Fluticasone Propionate (Fluticasone Propionate Nasal 16 Gm [place]) 2 spray NOSTRIL-B DAILY PRN PRN Reason: nasal congestion Guaifenesin/Dextromethorphan (Guaifenesin Dm 100/10/5 Ml 5 Ml Syrup) 5 ml PO Q4H PRN PRN Reason: cough Last Admin: 05/12/23 01:29 Dose: 5 ml Hydrocortisone (Hydrocortisone 1 % Cream 28.35 Gm Tube) 1 appl TOPICAL BID PRN; Protocol PRN Reason: itchy feet Last Admin: 04/12/23 21:27 Dose: 1 appl Hydroxyzine HCl (Hydroxyzine Hcl 25 Mg Tablet) 25 mg PO Q4H PRN PRN Reason: Anxiety Last Admin: 05/07/23 01:09 Dose: 25 mg Ibuprofen (Ibuprofen 600 Mg Tablet) 600 mg PO Q6H PRN PRN Reason: Pain, Moderate(Pain Scale 4-6) Last Admin: 05/13/23 16:37 Dose: 600 mg Latanoprost (Latanoprost 0.005 % Ophth No 2.5 Ml Drops) 1 drop EYE-BOTH BEDTIME TAZ Last Admin: 05/15/23 20:42 Dose: 1 drop Lidocaine (Lidocaine 5 % Ointment 35 Gm) 1 appl TOPICAL Q6H PRN; Protocol PRN Reason: pain r foot Last Admin: 05/15/23 20:49 Dose: 1 appl Magnesium Hydroxide (Milk Of Magnesia 30 Ml Oral.Susp) 30 ml PO BID PRN PRN Reason: constipation, stomach/GI upset Last Admin: 05/16/23 13:35 Dose: 30 ml Naltrexone HCl (Naltrexone Hcl 50 Mg Tablet) 50 mg PO DAILY TAZ Last Admin: 05/16/23 09:11 Dose: 50 mg Nortriptyline HCl (Nortriptyline Hcl 25 Mg Capsule) 75 mg PO BEDTIME TAZ Last Admin: 05/15/23 20:41 Dose: 75 mg Nystatin (Nystatin Powder 15 Gm Bottle) 1 appl TOPICAL BEDTIME TAZ; Protocol Last Admin: 05/15/23 20:50 Dose: 1 appl Olanzapine (Olanzapine 2.5 Mg Tablet) 2.5 mg PO Q4H PRN PRN Reason: anxiety/restlessness Last Admin: 04/28/23 03:25 Dose: 2.5 mg Olanzapine (Olanzapine 2.5 Mg Tablet) 2.5 mg PO BEDTIME TAZ Last Admin: 05/15/23 20:42 Dose: 2.5 mg Ondansetron HCl (Ondansetron Odt 4 Mg Tab.Rapdis) 4 mg TRANSLINGU Q6H PRN PRN Reason: Nausea and Vomiting Last Admin: 03/20/23 09:13 Dose: 4 mg Polyethylene Glycol (Polyethylene Glycol 3350 17 Gm Powd.Pack) 17 gm PO DAILY PRN PRN Reason: Constipation Last Admin: 05/16/23 09:12 Dose: 17 gm Propranolol HCl (Propranolol Hcl 20 Mg Tablet) 20 mg PO TID TAZ; Protocol Last Admin: 05/16/23 15:34 Dose: 20 mg Senna (Sennosides 8.6 Mg Tablet) 17.2 mg PO Q24H PRN PRN Reason: Constipation Last Admin: 05/13/23 22:05 Dose: 8.6 mg Trazodone HCl (Trazodone Hcl 100 Mg Tablet) 200 mg PO BEDTIME TAZ Last Admin: 05/15/23 20:41 Dose: 200 mg Vortioxetine (Vortioxetine Hydrobromide 10 Mg Tablet) 10 mg PO DAILY TAZ Last Admin: 05/16/23 09:11 Dose: 10 mg Zolpidem Tartrate (Zolpidem Tartrate 5 Mg Tablet) 5 mg PO BEDTIME TAZ Last Admin: 05/15/23 20:42 Dose: 5 mg Allergies Allergies Allergy/AdvReac Type Severity Reaction Status Date / Time fentanyl [FENTANYL] Allergy Intermediate unknown Verified 04/08/22 07:00 Assessment & Plan Assessment & Plan (1) Major depressive disorder, recurrent severe without psychotic features: Status: Acute Code(s): F33.2 - Major depressive disorder, recurrent severe without psychotic features (2) Cognitive and neurobehavioral dysfunction following brain injury: Status: Acute Code(s): G31.89 - Other specified degenerative diseases of nervous system; F09 - Unspecified mental disorder due to known physiological condition; S06.9X9S - Unspecified intracranial injury with loss of consciousness of unspecified duration, sequela (3) Personality disorder in adult: Status: Acute Code(s): F60.9 - Personality disorder, unspecified Plan ALPRAZOLAM 0.25 B.I.D. 0.5 BEDTIME OLANZAPINE ALSO 3 TIMES A DAY CONTINUE DEPAKOTE START PROPRANOLOL 10 T.I.D. THE PATIENT CONFRONTED REGARDING NEGATIVE TOXIC BEHAVIOR DIFFICULTY COPING AND NEGATIVE COMPLICATIONS TO HIS LIFE IF CONTINUE VERBALLY AGGRESSIVE AND TOXIC BEHAVIOR WITH OTHERS DEVALUATION ENCOURAGE REFLECTION STRESS MANAGEMENT COPING STRATEGIES 03/07 continue same treatment 03/08 continue same treatment 03/09 continue same treatment 03/10/23 Lower alprazolam .125 mg bid hold afternoon olanzapine secondary to slurring oversedation cont propranolol 03/11/23 Pt doing better less sedated struggles to maintain pos attitude 03/13 continue tx. 03/14: stable presentation, no change in mgmt. 03/15: appears sedated. no change in mgmt today. to F/U with attending tomorrow re meds for anxiety. 03/16 continue tx. 03/17 continue tx. 03/18 continue tx. 03/19 continue tx. 03/22 continue tx. 03/23 continue tx. 03/24/2023 Continue treatment plan discharge planning 03/25/2023 Continue plan of care 03/26/2023 Continued discharge planning needs much reassurance 03/27 continue tx. 03/28: Continue treatment plan. 03/29: Continue current treatment plan 03/30 continue tx. 03/31 continue tx. 04/02 no changes in treatment 04/03/2023 Patient more reactive belligerent kicked out at another person and was reactive with staff and aggressive. Seems much more triggered by stimulation difficulty reflecting discussed with patient increasing olanzapine alprazolam for behavioral control 04/07/23 Cont depakote olanzpine alprazolam encourage strategies to deal with triggers d/c planning 04/08/2023 Depakote increased by 125 mg nortriptyline increased continue discharge planning CK CHEM UA CBC 04/09/23 Patient has become increasingly depressed olanzapine Depakote could not effective for dysphoria irritability case reviewed dr nelson consider ect mirtazapine 04/10 Add Ambien 5 mg at hs 04/11: Continue current treatment plan. 04/12: Continue current treatment plan. 04/13: Continue current plan of care. 04/14 cont plan of care 04/15/23 Start trintellix 5mg daily 04/17/23 Continue treatment plan patient was seen 04/16 and 04/17 Mood generally improved less labile future oriented feels better able to try keep his future focus not current triggers in the inpatient setting nortriptyline has been increased 75 mg Trintellix 5 mg 04/19 keep same treatment 04/20/2023 Lower olanzapine 2.5 at bedtime continue p.r.n. 2.5 hopefully will help with feelings of sedation monitor mood 04/21 continue tx. 04/22 continue tx. 04/23/23 inc mirtazapine 15 hs alp 0.25 prn 04/24/23 inc hs alprazolam 0.5 hs 04/25 continue tx. 04/26 trazodone added back per pt request, remeron d/c. 04/27/23 pt doing better more stable cont plan of care 04/28/2023 Increase Trintellix to 10 mg daily encouragement reassurance regarding upcoming discharge transition 04/29/23 some dep sx monitor response to trintellix pressure of potential d/c and mtg for d/c planning 04/30/23 cont trintellix nortrip depakote 05/02: Continue current regimen and plans. 05/03: Continue current plans 05/04 restart ambien 5mg po qhs- felt off; start fluticasone for sinus congestion/pain with ibuprofen as needed; capsaisin for acute on chronic lower back pain. 05/05 continue tx. 05/06/2023 Continue plan of care needs much encouragement transitional meeting tomorrow 05/07/23 needs encouragement regarding placement d/c and ability to transition was overwhelmed initially improved later in day no si 05/08/23 Pt restart amlodpine encourage adaptation to transition and safety of hospital 05/09: Continue current treatment plan. 05/10: Continue current treatment plan. 05/13- continue tx. 05/14/23 send d/c meds anxious not overly depressed cont tx 05/15/23 d/c planning cont tx plan 05/16/23 Discharge planning Continue current regime and plan of care Reason for continued inpatient stay Substantial Risk for: rapid decompensation Time Spent With Patient Time: Total time managing care of this patient today ____ minutes.
[2023-05-16 18:00] VITALS: BP 119/79; PULSE 63; RESP 20; TEMP 36.1; O2SAT 98
[2023-05-16] MEDS: traZODone HCL 100 MG TABLET 200 MG PO (20:40)
[2023-05-16] MEDS: Zolpidem Tartrate 5 MG TABLET PO (20:40)
[2023-05-16] MEDS: Nortriptyline HCl 25 MG CAPSULE 75 MG PO (20:41)
[2023-05-16] MEDS: OLANZapine 2.5 MG TABLET PO (20:41)
[2023-05-16] MEDS: Divalproex Sodium 250 MG TABLET.DR 750 MG PO (20:41)
[2023-05-16] MEDS: Latanoprost 0.005 % Ophth Sol 2.5 ML DROPS 1 DROP EYE-BOTH (20:41)
[2023-05-16] MEDS: Artificial Tears 15 ML DROPS 1 DROP EYE-BOTH (20:41)
[2023-05-16] MEDS: Sennosides 8.6 MG TABLET 17.2 MG PO (20:41)
[2023-05-16] MEDS: ALPRAZolam 0.5 MG TABLET PO (20:47)
[2023-05-17] MEDS: polyethylene glycoL 3350 17 GM POWD.PACK PO (08:30)
[2023-05-17] MEDS: Vortioxetine Hydrobromide 10 MG TABLET PO (08:31)
[2023-05-17] MEDS: Propranolol HCL 20 MG TABLET PO ×3 (08:31→21:49)
[2023-05-17] MEDS: amLODIPine Besylate 5 MG TABLET PO (08:31)
[2023-05-17] MEDS: ALPRAZolam 0.25 MG TABLET PO ×2 (08:31→14:37)
[2023-05-17] MEDS: Naltrexone HCl 50 MG TABLET PO (08:31)
[2023-05-17 08:34] VITALS: BP 123/78; PULSE 69; RESP 18; TEMP 36.2; O2SAT 97
--- NOTE | 2023-05-17 09:00 | HO.PSYCHPN ---
Subjective Subjective Date of Service: 05/17/23 Reason For Visit: Depression hopelessness irritability Interim History: Pt seen, reviewed with his team. Discharge planned for 05/20 per team. Medication compliant, appetite and sleep are adequate, affect is appropriate and no dangerous behavioral sx. No medication changes today. Medication Compliance: Yes Side effects from medications: No Attending Groups: Yes Review of Systems Acute medical concerns: No Medical Review of Systems: unchanged Mental Status Exam Mental Status Exam Patient Appearance: Appropriate Patient Orientation: Person, Place and Situation Level of Consciousness: Alert Patient Behavior: Appropriate Mood Description: Appropriate Affect Description: Appropriate Ability to Follow Directions: Good Speech Pattern: Spontaneous Speech and Long Pauses Memory Description: Episodic Impaired Hallucinations: None Delusions: Not Present Thought Process: Distracted Thought Content: positive for Circumstantial Depressive Symptoms: Thoughts of /Suicide Judgement: Fair Diagnostics Vital Signs (24Hr): Vital Signs - 24 hr 05/16/23 15:15 05/16/23 18:00 05/17/23 08:34 Temperature 97 F 97.2 F Pulse Rate 64 63 69 Respiratory Rate 20 18 Blood Pressure 105/68 119/79 123/78 Pulse Oximetry 98 97 Oxygen Delivery Method Room Air Room Air BMI result Body Mass Index 30.8 Labs 04/09/23 07:59 04/09/23 07:59 Imaging Radiology Impressions: ITS Impressions Chest X-Ray 10/20/22 15:45 IMPRESSION: 1. Low lung volumes with bibasilar linear disc atelectasis versus scarring. 2. No airspace consolidation or effusion. Head CT 11/08/22 12:29 IMPRESSION: No acute intracranial hemorrhage or territorial infarction. Stable chronic postoperative changes with gliosis and encephalomalacia in the right frontal and right temporal lobes. Ex vacuo dilatation of the ventricles and diffuse parenchymal volume loss. Right-sided craniotomy changes. Chest X-Ray 11/12/22 10:32 IMPRESSION: Hypoexpanded lungs with bibasilar platelike atelectasis. Brain MRI 11/12/22 13:15 IMPRESSION: 1. No demonstrated acute intracranial abnormalities. 2. Chronic encephalomalacia of the right temporal, right frontal, and left occipital lobes. Small regions of chronic encephalomalacia in the parasagittal aspects of the bilateral parietal lobes. Moderate underlying microangiopathy and generalized cerebral volume loss. Chest X-Ray 11/14/22 15:52 IMPRESSION: Low lung volumes, bibasilar subsegmental atelectasis and slight elevation of the right hemidiaphragm similar to previous exam. Modified Barium Swallow 11/21/22 15:11 IMPRESSION: Laryngeal penetration on several occasions but no laryngeal aspiration. Mild retention of solid food in the valleculae which cleared with subsequent oral administration of water or thin barium. Correlate with speech therapy results. Orbit CT 01/23/23 14:05 IMPRESSION: - No definite significant intraorbital soft tissue findings to assessment is limited on a noncontrast CT of the orbits. No retrobulbar mass lesions and no cellulitic changes appreciated. - There are large fluid levels within the left maxillary sinus and within the right frontal sinus the can be correlated for clinical signs of acute sinusitis. - A peripherally ossified structure extending from the dorsal margin of the right nasolacrimal duct into the right maxillary sinus is stable when compared to examinations dated back to 08/24/2008 favoring a benign etiology. Cervical Spine CT 02/14/23 22:15 IMPRESSION: 1. No acute intracranial abnormality. Stable postsurgical changes with right frontotemporal encephalomalacia, global volume loss, and extraocular dilatation of the right lateral ventricle. 2. No cervical spine fracture or traumatic malalignment. Head CT 02/14/23 22:15 IMPRESSION: 1. No acute intracranial abnormality. Stable postsurgical changes with right frontotemporal encephalomalacia, global volume loss, and extraocular dilatation of the right lateral ventricle. 2. No cervical spine fracture or traumatic malalignment. Hip/Pelvis X-Ray 02/14/23 22:25 IMPRESSION: Moderate degenerative changes of the right hip with loss of superolateral joint space. Similar chronic posttraumatic deformity of the right femoral neck with chronic foreshortening. Status post left total hip arthroplasty in unchanged alignment however the lack of a crosstable lateral view limits assessment for dislocation. No acute fracture or dislocation appreciated on the available views. Foot X-Ray 02/22/23 13:50 IMPRESSION: * Postsurgical changes of arthrodesis first metatarsophalangeal joint. * There is developed large osteophyte from the head of the first metatarsal protruding laterally abutting the head of the second metatarsal. This might be the source of patient's pain. * Underlying degenerative osteoarthritis. Foot X-Ray 02/23/23 14:11 IMPRESSION: Mild degenerative changes MTP, PIP and DIP joints. No visible acute fracture or dislocation seen. Medications Medications Current Medications Acetaminophen (Acetaminophen 325 Mg Tablet) 650 mg PO Q6H PRN PRN Reason: Pain, Mild (Pain Scale 1-3) Last Admin: 05/16/23 09:09 Dose: 650 mg Albuterol Sulfate (Albuterol Sulfate 90 Mcg 8 Gm Inhaler) 2 puff INHALE RQ4H PRN PRN Reason: Shortness of Breath/Wheezing Alprazolam (Alprazolam 0.5 Mg Tablet) 0.5 mg PO BEDTIME TAZ Last Admin: 05/16/23 20:47 Dose: 0.5 mg Alprazolam (Alprazolam 0.25 Mg Tablet) 0.25 mg PO TID PRN PRN Reason: Anxiety Alprazolam (Alprazolam 0.25 Mg Tablet) 0.25 mg PO BID@0830,1430 TAZ Last Admin: 05/17/23 08:31 Dose: 0.25 mg Amlodipine Besylate (Amlodipine Besylate 5 Mg Tablet) 5 mg PO DAILY TAZ; Protocol Last Admin: 05/17/23 08:31 Dose: 5 mg Artificial Tears (Artificial Tears 15 Ml Drops) 1 drop EYE-BOTH Q2H PRN PRN Reason: Dry Eyes Last Admin: 05/16/23 20:41 Dose: 1 drop Bisacodyl (Bisacodyl 10 Mg Supp.Rect) 10 mg MA DAILY PRN PRN Reason: Constipation Last Admin: 05/07/23 12:39 Dose: 10 mg Capsaicin (Capsaicin 0.025% Cream 60 Gm Tube) 1 appl TOPICAL BEDTIME TAZ; Protocol Last Admin: 05/16/23 20:49 Dose: Not Given Clotrimazole (Clotrimazole 1 % Cream 15 Gm Tube) 1 appl TOPICAL BEDTIME TAZ; Protocol Last Admin: 05/16/23 20:48 Dose: Not Given [place] Butter/Zinc Oxide ([place] Butter/Zinc Oxide Supp.Rect) 1 supp MA BID PRN PRN Reason: Hemorrhoids Divalproex Sodium (Divalproex Sodium 250 Mg Tablet.Dr) 750 mg PO BEDTIME TAZ Last Admin: 05/16/23 20:41 Dose: 750 mg Divalproex Sodium (Divalproex Sodium Sprinkles 125 Mg Cap.) 125 mg PO DAILY@1200 TAZ Last Admin: 05/16/23 13:35 Dose: 125 mg Fluticasone Propionate (Fluticasone Propionate Nasal 16 Gm [place]) 2 spray NOSTRIL-B DAILY PRN PRN Reason: nasal congestion Guaifenesin/Dextromethorphan (Guaifenesin Dm 100/10/5 Ml 5 Ml Syrup) 5 ml PO Q4H PRN PRN Reason: cough Last Admin: 05/12/23 01:29 Dose: 5 ml Hydrocortisone (Hydrocortisone 1 % Cream 28.35 Gm Tube) 1 appl TOPICAL BID PRN; Protocol PRN Reason: itchy feet Last Admin: 04/12/23 21:27 Dose: 1 appl Hydroxyzine HCl (Hydroxyzine Hcl 25 Mg Tablet) 25 mg PO Q4H PRN PRN Reason: Anxiety Last Admin: 05/07/23 01:09 Dose: 25 mg Ibuprofen (Ibuprofen 600 Mg Tablet) 600 mg PO Q6H PRN PRN Reason: Pain, Moderate(Pain Scale 4-6) Last Admin: 05/13/23 16:37 Dose: 600 mg Latanoprost (Latanoprost 0.005 % Ophth No 2.5 Ml Drops) 1 drop EYE-BOTH BEDTIME TAZ Last Admin: 05/16/23 20:41 Dose: 1 drop Lidocaine (Lidocaine 5 % Ointment 35 Gm) 1 appl TOPICAL Q6H PRN; Protocol PRN Reason: pain r foot Last Admin: 05/15/23 20:49 Dose: 1 appl Magnesium Hydroxide (Milk Of Magnesia 30 Ml Oral.Susp) 30 ml PO BID PRN PRN Reason: constipation, stomach/GI upset Last Admin: 05/16/23 13:35 Dose: 30 ml Naltrexone HCl (Naltrexone Hcl 50 Mg Tablet) 50 mg PO DAILY TAZ Last Admin: 05/17/23 08:31 Dose: 50 mg Nortriptyline HCl (Nortriptyline Hcl 25 Mg Capsule) 75 mg PO BEDTIME TAZ Last Admin: 05/16/23 20:41 Dose: 75 mg Nystatin (Nystatin Powder 15 Gm Bottle) 1 appl TOPICAL BEDTIME TAZ; Protocol Last Admin: 05/16/23 20:55 Dose: Not Given Olanzapine (Olanzapine 2.5 Mg Tablet) 2.5 mg PO Q4H PRN PRN Reason: anxiety/restlessness Last Admin: 04/28/23 03:25 Dose: 2.5 mg Olanzapine (Olanzapine 2.5 Mg Tablet) 2.5 mg PO BEDTIME TAZ Last Admin: 05/16/23 20:41 Dose: 2.5 mg Ondansetron HCl (Ondansetron Odt 4 Mg Tab.Rapdis) 4 mg TRANSLINGU Q6H PRN PRN Reason: Nausea and Vomiting Last Admin: 03/20/23 09:13 Dose: 4 mg Polyethylene Glycol (Polyethylene Glycol 3350 17 Gm Powd.Pack) 17 gm PO DAILY PRN PRN Reason: Constipation Last Admin: 05/17/23 08:30 Dose: 17 gm Propranolol HCl (Propranolol Hcl 20 Mg Tablet) 20 mg PO TID TAZ; Protocol Last Admin: 05/17/23 08:31 Dose: 20 mg Senna (Sennosides 8.6 Mg Tablet) 17.2 mg PO Q24H PRN PRN Reason: Constipation Last Admin: 05/16/23 20:41 Dose: 17.2 mg Trazodone HCl (Trazodone Hcl 100 Mg Tablet) 200 mg PO BEDTIME TAZ Last Admin: 05/16/23 20:40 Dose: 200 mg Vortioxetine (Vortioxetine Hydrobromide 10 Mg Tablet) 10 mg PO DAILY TAZ Last Admin: 05/17/23 08:31 Dose: 10 mg Zolpidem Tartrate (Zolpidem Tartrate 5 Mg Tablet) 5 mg PO BEDTIME TAZ Last Admin: 05/16/23 20:40 Dose: 5 mg Allergies Allergies Allergy/AdvReac Type Severity Reaction Status Date / Time fentanyl [FENTANYL] Allergy Intermediate unknown Verified 04/08/22 07:00 Assessment & Plan Assessment & Plan (1) Major depressive disorder, recurrent severe without psychotic features: Status: Acute Code(s): F33.2 - Major depressive disorder, recurrent severe without psychotic features (2) Cognitive and neurobehavioral dysfunction following brain injury: Status: Acute Code(s): G31.89 - Other specified degenerative diseases of nervous system; F09 - Unspecified mental disorder due to known physiological condition; S06.9X9S - Unspecified intracranial injury with loss of consciousness of unspecified duration, sequela (3) Personality disorder in adult: Status: Acute Code(s): F60.9 - Personality disorder, unspecified Plan ALPRAZOLAM 0.25 B.I.D. 0.5 BEDTIME OLANZAPINE ALSO 3 TIMES A DAY CONTINUE DEPAKOTE START PROPRANOLOL 10 T.I.D. THE PATIENT CONFRONTED REGARDING NEGATIVE TOXIC BEHAVIOR DIFFICULTY COPING AND NEGATIVE COMPLICATIONS TO HIS LIFE IF CONTINUE VERBALLY AGGRESSIVE AND TOXIC BEHAVIOR WITH OTHERS DEVALUATION ENCOURAGE REFLECTION STRESS MANAGEMENT COPING STRATEGIES 03/07 continue same treatment 03/08 continue same treatment 03/09 continue same treatment 03/10/23 Lower alprazolam .125 mg bid hold afternoon olanzapine secondary to slurring oversedation cont propranolol 03/11/23 Pt doing better less sedated struggles to maintain pos attitude 03/13 continue tx. 03/14: stable presentation, no change in mgmt. 03/15: appears sedated. no change in mgmt today. to F/U with attending tomorrow re meds for anxiety. 03/16 continue tx. 03/17 continue tx. 03/18 continue tx. 03/19 continue tx. 03/22 continue tx. 03/23 continue tx. 03/24/2023 Continue treatment plan discharge planning 03/25/2023 Continue plan of care 03/26/2023 Continued discharge planning needs much reassurance 03/27 continue tx. 03/28: Continue treatment plan. 03/29: Continue current treatment plan 03/30 continue tx. 03/31 continue tx. 04/02 no changes in treatment 04/03/2023 Patient more reactive belligerent kicked out at another person and was reactive with staff and aggressive. Seems much more triggered by stimulation difficulty reflecting discussed with patient increasing olanzapine alprazolam for behavioral control 04/07/23 Cont depakote olanzpine alprazolam encourage strategies to deal with triggers d/c planning 04/08/2023 Depakote increased by 125 mg nortriptyline increased continue discharge planning CK CHEM UA CBC 04/09/23 Patient has become increasingly depressed olanzapine Depakote could not effective for dysphoria irritability case reviewed dr nelson consider ect mirtazapine 04/10 Add Ambien 5 mg at hs 04/11: Continue current treatment plan. 04/12: Continue current treatment plan. 04/13: Continue current plan of care. 04/14 cont plan of care 04/15/23 Start trintellix 5mg daily 04/17/23 Continue treatment plan patient was seen 04/16 and 04/17 Mood generally improved less labile future oriented feels better able to try keep his future focus not current triggers in the inpatient setting nortriptyline has been increased 75 mg Trintellix 5 mg 04/19 keep same treatment 04/20/2023 Lower olanzapine 2.5 at bedtime continue p.r.n. 2.5 hopefully will help with feelings of sedation monitor mood 04/21 continue tx. 04/22 continue tx. 04/23/23 inc mirtazapine 15 hs alp 0.25 prn 04/24/23 inc hs alprazolam 0.5 hs 04/25 continue tx. 04/26 trazodone added back per pt request, remeron d/c. 04/27/23 pt doing better more stable cont plan of care 04/28/2023 Increase Trintellix to 10 mg daily encouragement reassurance regarding upcoming discharge transition 04/29/23 some dep sx monitor response to trintellix pressure of potential d/c and mtg for d/c planning 04/30/23 cont trintellix nortrip depakote 05/02: Continue current regimen and plans. 05/03: Continue current plans 05/04 restart ambien 5mg po qhs- felt off; start fluticasone for sinus congestion/pain with ibuprofen as needed; capsaisin for acute on chronic lower back pain. 05/05 continue tx. 05/06/2023 Continue plan of care needs much encouragement transitional meeting tomorrow 05/07/23 needs encouragement regarding placement d/c and ability to transition was overwhelmed initially improved later in day no si 05/08/23 Pt restart amlodpine encourage adaptation to transition and safety of hospital 05/09: Continue current treatment plan. 05/10: Continue current treatment plan. 05/13- continue tx. 05/14/23 send d/c meds anxious not overly depressed cont tx 05/15/23 d/c planning cont tx plan 05/16/23 Discharge planning Continue current regime and plan of care 05/17/23 Contine current regime and plan of care Informed Consent: understands Reason for continued inpatient stay Substantial Risk for: rapid decompensation Time Spent With Patient Time: Total time managing care of this patient today ____ minutes.
[2023-05-17] MEDS: Divalproex Sodium Sprinkles 125 MG CAP.DR.SPR PO (13:01)
[2023-05-17 14:32] VITALS: BP 137/72; PULSE 67
[2023-05-17] MEDS: Milk of Magnesia 30 ML ORAL.SUSP PO (14:37)
[2023-05-17 18:00] VITALS: BP 148/74; PULSE 64; RESP 16; TEMP 36.3; O2SAT 98
[2023-05-17] MEDS: OLANZapine 2.5 MG TABLET PO (21:47)
[2023-05-17] MEDS: Divalproex Sodium 250 MG TABLET.DR 750 MG PO (21:47)
[2023-05-17] MEDS: traZODone HCL 100 MG TABLET 200 MG PO (21:48)
[2023-05-17] MEDS: Artificial Tears 15 ML DROPS 1 DROP EYE-BOTH (21:50)
[2023-05-17] MEDS: Latanoprost 0.005 % Ophth Sol 2.5 ML DROPS 1 DROP EYE-BOTH (21:53)
[2023-05-18] MEDS: Clotrimazole 1 % Cream 15 GM TUBE 1 APPL TOPICAL (00:17)
[2023-05-18] MEDS: Nystatin Powder 15 GM BOTTLE 1 APPL TOPICAL (00:19)
[2023-05-18] MEDS: Nortriptyline HCl 25 MG CAPSULE 75 MG PO ×2 (00:19→21:19)
[2023-05-18 08:00] VITALS: BP 122/73; PULSE 75; RESP 18; TEMP 35.9; O2SAT 97
[2023-05-18] MEDS: polyethylene glycoL 3350 17 GM POWD.PACK PO (09:23)
[2023-05-18] MEDS: Naltrexone HCl 50 MG TABLET PO (09:43)
[2023-05-18] MEDS: Propranolol HCL 20 MG TABLET PO ×3 (09:43→21:19)
[2023-05-18] MEDS: amLODIPine Besylate 5 MG TABLET PO (09:43)
[2023-05-18] MEDS: Vortioxetine Hydrobromide 10 MG TABLET PO (09:46)
[2023-05-18] MEDS: Divalproex Sodium Sprinkles 125 MG CAP.DR.SPR PO (12:04)
--- NOTE | 2023-05-18 12:35 | HO.PSYCHPN ---
Subjective Subjective Date of Service: 05/18/23 Reason For Visit: Depression hopelessness irritability Subjective Notes: Conditional Voluntary Interim History: Pt reports difficulty sleeping last night as ambien, felt off MARs- has been renewed since. Pt reports anxiety related to transitioning to new place. No SI/HI. Taking medications as prescribed. No behavioral concerns. Medication Compliance: Yes Review of Systems Review of Systems unremarkable Yes all other systems are reviewed and are negative, Unobtainable due to mental condition and Unobtainable due to mental status Mental Status Exam Mental Status Exam Narrative: Appearance: casually dressed Behavior: cooperative Speech: clear, normal rate/rhythm/volume, spontaneous TP: linear TC: discharge plans Psychomotor: Mood: Fatigued anxious dysphoric Affect: constricted anxious SI: denies HI: none VH/AH: none Delusions: none SI; none HI: none Insight/judgment: fair x 2. Memory/cog: alert, oriented x 3. Diagnostics Vital Signs (24Hr): Vital Signs - 24 hr 05/17/23 14:32 05/17/23 18:00 05/18/23 08:00 Temperature 97.3 F 96.6 F L Pulse Rate 67 64 75 Respiratory Rate 16 18 Blood Pressure 137/72 148/74 H 122/73 Pulse Oximetry 98 97 Oxygen Delivery Method Room Air Room Air BMI result Body Mass Index 30.8 Labs 04/09/23 07:59 04/09/23 07:59 Imaging Radiology Impressions: ITS Impressions Chest X-Ray 10/20/22 15:45 IMPRESSION: 1. Low lung volumes with bibasilar linear disc atelectasis versus scarring. 2. No airspace consolidation or effusion. Head CT 11/08/22 12:29 IMPRESSION: No acute intracranial hemorrhage or territorial infarction. Stable chronic postoperative changes with gliosis and encephalomalacia in the right frontal and right temporal lobes. Ex vacuo dilatation of the ventricles and diffuse parenchymal volume loss. Right-sided craniotomy changes. Chest X-Ray 11/12/22 10:32 IMPRESSION: Hypoexpanded lungs with bibasilar platelike atelectasis. Brain MRI 11/12/22 13:15 IMPRESSION: 1. No demonstrated acute intracranial abnormalities. 2. Chronic encephalomalacia of the right temporal, right frontal, and left occipital lobes. Small regions of chronic encephalomalacia in the parasagittal aspects of the bilateral parietal lobes. Moderate underlying microangiopathy and generalized cerebral volume loss. Chest X-Ray 11/14/22 15:52 IMPRESSION: Low lung volumes, bibasilar subsegmental atelectasis and slight elevation of the right hemidiaphragm similar to previous exam. Modified Barium Swallow 11/21/22 15:11 IMPRESSION: Laryngeal penetration on several occasions but no laryngeal aspiration. Mild retention of solid food in the valleculae which cleared with subsequent oral administration of water or thin barium. Correlate with speech therapy results. Orbit CT 01/23/23 14:05 IMPRESSION: - No definite significant intraorbital soft tissue findings to assessment is limited on a noncontrast CT of the orbits. No retrobulbar mass lesions and no cellulitic changes appreciated. - There are large fluid levels within the left maxillary sinus and within the right frontal sinus the can be correlated for clinical signs of acute sinusitis. - A peripherally ossified structure extending from the dorsal margin of the right nasolacrimal duct into the right maxillary sinus is stable when compared to examinations dated back to 08/24/2008 favoring a benign etiology. Cervical Spine CT 02/14/23 22:15 IMPRESSION: 1. No acute intracranial abnormality. Stable postsurgical changes with right frontotemporal encephalomalacia, global volume loss, and extraocular dilatation of the right lateral ventricle. 2. No cervical spine fracture or traumatic malalignment. Head CT 02/14/23 22:15 IMPRESSION: 1. No acute intracranial abnormality. Stable postsurgical changes with right frontotemporal encephalomalacia, global volume loss, and extraocular dilatation of the right lateral ventricle. 2. No cervical spine fracture or traumatic malalignment. Hip/Pelvis X-Ray 02/14/23 22:25 IMPRESSION: Moderate degenerative changes of the right hip with loss of superolateral joint space. Similar chronic posttraumatic deformity of the right femoral neck with chronic foreshortening. Status post left total hip arthroplasty in unchanged alignment however the lack of a crosstable lateral view limits assessment for dislocation. No acute fracture or dislocation appreciated on the available views. Foot X-Ray 02/22/23 13:50 IMPRESSION: * Postsurgical changes of arthrodesis first metatarsophalangeal joint. * There is developed large osteophyte from the head of the first metatarsal protruding laterally abutting the head of the second metatarsal. This might be the source of patient's pain. * Underlying degenerative osteoarthritis. Foot X-Ray 02/23/23 14:11 IMPRESSION: Mild degenerative changes MTP, PIP and DIP joints. No visible acute fracture or dislocation seen. Medications Medications Current Medications Acetaminophen (Acetaminophen 325 Mg Tablet) 650 mg PO Q6H PRN PRN Reason: Pain, Mild (Pain Scale 1-3) Last Admin: 05/16/23 09:09 Dose: 650 mg Albuterol Sulfate (Albuterol Sulfate 90 Mcg 8 Gm Inhaler) 2 puff INHALE RQ4H PRN PRN Reason: Shortness of Breath/Wheezing Alprazolam (Alprazolam 0.25 Mg Tablet) 0.25 mg PO TID PRN PRN Reason: Anxiety Alprazolam (Alprazolam 0.5 Mg Tablet) 0.5 mg PO BEDTIME TAZ Amlodipine Besylate (Amlodipine Besylate 5 Mg Tablet) 5 mg PO DAILY TAZ; Protocol Last Admin: 05/18/23 09:43 Dose: 5 mg Artificial Tears (Artificial Tears 15 Ml Drops) 1 drop EYE-BOTH Q2H PRN PRN Reason: Dry Eyes Last Admin: 05/17/23 21:50 Dose: 1 drop Bisacodyl (Bisacodyl 10 Mg Supp.Rect) 10 mg MN DAILY PRN PRN Reason: Constipation Last Admin: 05/07/23 12:39 Dose: 10 mg Capsaicin (Capsaicin 0.025% Cream 60 Gm Tube) 1 appl TOPICAL BEDTIME TAZ; Protocol Last Admin: 05/18/23 00:17 Dose: Not Given Clotrimazole (Clotrimazole 1 % Cream 15 Gm Tube) 1 appl TOPICAL BEDTIME TAZ; Protocol Last Admin: 05/18/23 00:17 Dose: 1 appl Lacey Butter/Zinc Oxide (Lacey Butter/Zinc Oxide Supp.Rect) 1 supp MN BID PRN PRN Reason: Hemorrhoids Divalproex Sodium (Divalproex Sodium 250 Mg Walt.Dr) 750 mg PO BEDTIME TAZ Last Admin: 05/17/23 21:47 Dose: 750 mg Divalproex Sodium (Divalproex Sodium Sprinkles 125 Mg Cap.) 125 mg PO DAILY@1200 TAZ Last Admin: 05/18/23 12:04 Dose: 125 mg Fluticasone Propionate (Fluticasone Propionate Nasal 16 Gm Hiller) 2 spray NOSTRIL-B DAILY PRN PRN Reason: nasal congestion Guaifenesin/Dextromethorphan (Guaifenesin Dm 100/10/5 Ml 5 Ml Syrup) 5 ml PO Q4H PRN PRN Reason: cough Last Admin: 05/12/23 01:29 Dose: 5 ml Hydrocortisone (Hydrocortisone 1 % Cream 28.35 Gm Tube) 1 appl TOPICAL BID PRN; Protocol PRN Reason: itchy feet Last Admin: 04/12/23 21:27 Dose: 1 appl Hydroxyzine HCl (Hydroxyzine Hcl 25 Mg Tablet) 25 mg PO Q4H PRN PRN Reason: Anxiety Last Admin: 05/07/23 01:09 Dose: 25 mg Ibuprofen (Ibuprofen 600 Mg Tablet) 600 mg PO Q6H PRN PRN Reason: Pain, Moderate(Pain Scale 4-6) Last Admin: 05/13/23 16:37 Dose: 600 mg Latanoprost (Latanoprost 0.005 % Ophth No 2.5 Ml Drops) 1 drop EYE-BOTH BEDTIME TAZ Last Admin: 05/17/23 21:53 Dose: 1 drop Lidocaine (Lidocaine 5 % Ointment 35 Gm) 1 appl TOPICAL Q6H PRN; Protocol PRN Reason: pain r foot Last Admin: 05/15/23 20:49 Dose: 1 appl Magnesium Hydroxide (Milk Of Magnesia 30 Ml Oral.Susp) 30 ml PO BID PRN PRN Reason: constipation, stomach/GI upset Last Admin: 05/17/23 14:37 Dose: 30 ml Naltrexone HCl (Naltrexone Hcl 50 Mg Tablet) 50 mg PO DAILY TAZ Last Admin: 05/18/23 09:43 Dose: 50 mg Nortriptyline HCl (Nortriptyline Hcl 25 Mg Capsule) 75 mg PO BEDTIME TAZ Last Admin: 05/18/23 00:19 Dose: 75 mg Nystatin (Nystatin Powder 15 Gm Bottle) 1 appl TOPICAL BEDTIME TAZ; Protocol Last Admin: 05/18/23 00:19 Dose: 1 appl Olanzapine (Olanzapine 2.5 Mg Tablet) 2.5 mg PO Q4H PRN PRN Reason: anxiety/restlessness Last Admin: 04/28/23 03:25 Dose: 2.5 mg Olanzapine (Olanzapine 2.5 Mg Tablet) 2.5 mg PO BEDTIME TAZ Last Admin: 05/17/23 21:47 Dose: 2.5 mg Ondansetron HCl (Ondansetron Odt 4 Mg Tab.Rapdis) 4 mg TRANSLINGU Q6H PRN PRN Reason: Nausea and Vomiting Last Admin: 03/20/23 09:13 Dose: 4 mg Polyethylene Glycol (Polyethylene Glycol 3350 17 Gm Powd.Pack) 17 gm PO DAILY PRN PRN Reason: Constipation Last Admin: 05/18/23 09:23 Dose: 17 gm Propranolol HCl (Propranolol Hcl 20 Mg Tablet) 20 mg PO TID TAZ; Protocol Last Admin: 05/18/23 09:43 Dose: 20 mg Senna (Sennosides 8.6 Mg Tablet) 17.2 mg PO Q24H PRN PRN Reason: Constipation Last Admin: 05/16/23 20:41 Dose: 17.2 mg Trazodone HCl (Trazodone Hcl 100 Mg Tablet) 200 mg PO BEDTIME TAZ Last Admin: 05/17/23 21:48 Dose: 200 mg Vortioxetine (Vortioxetine Hydrobromide 10 Mg Tablet) 10 mg PO DAILY [facility] Last Admin: 05/18/23 09:46 Dose: 10 mg Zolpidem Tartrate (Zolpidem Tartrate 5 Mg Tablet) 5 mg PO BEDTIME [facility] Allergies Allergies Allergy/AdvReac Type Severity Reaction Status Date / Time fentanyl [FENTANYL] Allergy Intermediate unknown Verified 04/08/22 07:00 Assessment & Plan Assessment & Plan (1) Major depressive disorder, recurrent severe without psychotic features: Status: Acute Code(s): F33.2 - Major depressive disorder, recurrent severe without psychotic features (2) Cognitive and neurobehavioral dysfunction following brain injury: Status: Acute Code(s): G31.89 - Other specified degenerative diseases of nervous system; F09 - Unspecified mental disorder due to known physiological condition; S06.9X9S - Unspecified intracranial injury with loss of consciousness of unspecified duration, sequela (3) Personality disorder in adult: Status: Acute Code(s): F60.9 - Personality disorder, unspecified Plan ALPRAZOLAM 0.25 B.I.D. 0.5 BEDTIME OLANZAPINE ALSO 3 TIMES A DAY CONTINUE DEPAKOTE START PROPRANOLOL 10 T.I.D. THE PATIENT CONFRONTED REGARDING NEGATIVE TOXIC BEHAVIOR DIFFICULTY COPING AND NEGATIVE COMPLICATIONS TO HIS LIFE IF CONTINUE VERBALLY AGGRESSIVE AND TOXIC BEHAVIOR WITH OTHERS DEVALUATION ENCOURAGE REFLECTION STRESS MANAGEMENT COPING STRATEGIES 03/07 continue same treatment 03/08 continue same treatment 03/09 continue same treatment 03/10/23 Lower alprazolam .125 mg bid hold afternoon olanzapine secondary to slurring oversedation cont propranolol 03/11/23 Pt doing better less sedated struggles to maintain pos attitude 03/13 continue tx. 03/14: stable presentation, no change in mgmt. 03/15: appears sedated. no change in mgmt today. to F/U with attending tomorrow re meds for anxiety. 03/16 continue tx. 03/17 continue tx. 03/18 continue tx. 03/19 continue tx. 03/22 continue tx. 03/23 continue tx. 03/24/2023 Continue treatment plan discharge planning 03/25/2023 Continue plan of care 03/26/2023 Continued discharge planning needs much reassurance 03/27 continue tx. 03/28: Continue treatment plan. 03/29: Continue current treatment plan 03/30 continue tx. 03/31 continue tx. 04/02 no changes in treatment 04/03/2023 Patient more reactive belligerent kicked out at another person and was reactive with staff and aggressive. Seems much more triggered by stimulation difficulty reflecting discussed with patient increasing olanzapine alprazolam for behavioral control 04/07/23 Cont depakote olanzpine alprazolam encourage strategies to deal with triggers d/c planning 04/08/2023 Depakote increased by 125 mg nortriptyline increased continue discharge planning CK CHEM UA CBC 04/09/23 Patient has become increasingly depressed olanzapine Depakote could not effective for dysphoria irritability case reviewed dr nelson consider ect mirtazapine 04/10 Add Ambien 5 mg at hs 04/11: Continue current treatment plan. 04/12: Continue current treatment plan. 04/13: Continue current plan of care. 04/14 cont plan of care 04/15/23 Start trintellix 5mg daily 04/17/23 Continue treatment plan patient was seen 04/16 and 04/17 Mood generally improved less labile future oriented feels better able to try keep his future focus not current triggers in the inpatient setting nortriptyline has been increased 75 mg Trintellix 5 mg 04/19 keep same treatment 04/20/2023 Lower olanzapine 2.5 at bedtime continue p.r.n. 2.5 hopefully will help with feelings of sedation monitor mood 04/21 continue tx. 04/22 continue tx. 04/23/23 inc mirtazapine 15 hs alp 0.25 prn 04/24/23 inc hs alprazolam 0.5 hs 04/25 continue tx. 04/26 trazodone added back per pt request, remeron d/c. 04/27/23 pt doing better more stable cont plan of care 04/28/2023 Increase Trintellix to 10 mg daily encouragement reassurance regarding upcoming discharge transition 04/29/23 some dep sx monitor response to trintellix pressure of potential d/c and mtg for d/c planning 04/30/23 cont trintellix nortrip depakote 05/02: Continue current regimen and plans. 05/03: Continue current plans 05/04 restart ambien 5mg po qhs- felt off; start fluticasone for sinus congestion/pain with ibuprofen as needed; capsaisin for acute on chronic lower back pain. 05/05 continue tx. 05/06/2023 Continue plan of care needs much encouragement transitional meeting tomorrow 05/07/23 needs encouragement regarding placement d/c and ability to transition was overwhelmed initially improved later in day no si 05/08/23 Pt restart amlodpine encourage adaptation to transition and safety of hospital 05/09: Continue current treatment plan. 05/10: Continue current treatment plan. 05/13- continue tx. 05/14/23 send d/c meds anxious not overly depressed cont tx 05/15/23 d/c planning cont tx plan 05/16/23 Discharge planning Continue current regime and plan of care 05/17/23 Contine current regime and plan of care 05/18 continue tx. Reason for continued inpatient stay Substantial Risk for: stable for discharge Time Spent With Patient Time: Total time managing care of this patient today ____ minutes.
[2023-05-18 14:40] VITALS: BP 122/66; PULSE 70
[2023-05-18] MEDS: Milk of Magnesia 30 ML ORAL.SUSP PO (14:44)
[2023-05-18 18:00] VITALS: BP 133/73; PULSE 66; RESP 16; TEMP 36.6; O2SAT 96
[2023-05-18] MEDS: Ibuprofen 600 MG TABLET PO (18:16)
[2023-05-18] MEDS: OLANZapine 2.5 MG TABLET PO (21:20)
[2023-05-18] MEDS: traZODone HCL 100 MG TABLET 200 MG PO (21:20)
[2023-05-18] MEDS: Divalproex Sodium 250 MG TABLET.DR 750 MG PO (21:20)
[2023-05-18] MEDS: Artificial Tears 15 ML DROPS 1 DROP EYE-BOTH (21:23)
[2023-05-18] MEDS: Latanoprost 0.005 % Ophth Sol 2.5 ML DROPS 1 DROP EYE-BOTH (21:23)
[2023-05-19 09:01] VITALS: BP 125/73; PULSE 67; RESP 16; TEMP 36.3; O2SAT 97
[2023-05-19] MEDS: Naltrexone HCl 50 MG TABLET PO (09:03)
[2023-05-19] MEDS: amLODIPine Besylate 5 MG TABLET PO (09:03)
[2023-05-19] MEDS: Vortioxetine Hydrobromide 10 MG TABLET PO (09:03)
[2023-05-19] MEDS: Propranolol HCL 20 MG TABLET PO ×3 (09:03→22:36)
[2023-05-19] MEDS: polyethylene glycoL 3350 17 GM POWD.PACK PO (09:22)
--- NOTE | 2023-05-19 13:32 | HO.PSYCHPN ---
Subjective Subjective Date of Service: 05/19/23 Reason For Visit: Depression hopelessness irritability Subjective Notes: Conditional Voluntary Interim History: Pt slept through the night. Pt reports anxiety related to transitioning to new place. No SI/HI. Taking medications as prescribed. No behavioral concerns. Review of Systems Review of Systems unremarkable Yes all other systems are reviewed and are negative, Unobtainable due to mental condition and Unobtainable due to mental status Mental Status Exam Mental Status Exam Narrative: Appearance: casually dressed Behavior: cooperative Speech: clear, normal rate/rhythm/volume, spontaneous TP: linear TC: discharge plans Psychomotor: Mood: Fatigued anxious dysphoric Affect: constricted anxious SI: denies HI: none VH/AH: none Delusions: none SI; none HI: none Insight/judgment: fair x 2. Memory/cog: alert, oriented x 3. Diagnostics Vital Signs (24Hr): Vital Signs - 24 hr 05/18/23 14:40 05/18/23 18:00 05/19/23 09:01 Temperature 97.8 F 97.3 F Pulse Rate 70 66 67 Respiratory Rate 16 16 Blood Pressure 122/66 133/73 125/73 Pulse Oximetry 96 97 Oxygen Delivery Method Room Air Room Air BMI result Body Mass Index 30.8 Labs 04/09/23 07:59 04/09/23 07:59 Imaging Radiology Impressions: ITS Impressions Chest X-Ray 10/20/22 15:45 IMPRESSION: 1. Low lung volumes with bibasilar linear disc atelectasis versus scarring. 2. No airspace consolidation or effusion. Head CT 11/08/22 12:29 IMPRESSION: No acute intracranial hemorrhage or territorial infarction. Stable chronic postoperative changes with gliosis and encephalomalacia in the right frontal and right temporal lobes. Ex vacuo dilatation of the ventricles and diffuse parenchymal volume loss. Right-sided craniotomy changes. Chest X-Ray 11/12/22 10:32 IMPRESSION: Hypoexpanded lungs with bibasilar platelike atelectasis. Brain MRI 11/12/22 13:15 IMPRESSION: 1. No demonstrated acute intracranial abnormalities. 2. Chronic encephalomalacia of the right temporal, right frontal, and left occipital lobes. Small regions of chronic encephalomalacia in the parasagittal aspects of the bilateral parietal lobes. Moderate underlying microangiopathy and generalized cerebral volume loss. Chest X-Ray 11/14/22 15:52 IMPRESSION: Low lung volumes, bibasilar subsegmental atelectasis and slight elevation of the right hemidiaphragm similar to previous exam. Modified Barium Swallow 11/21/22 15:11 IMPRESSION: Laryngeal penetration on several occasions but no laryngeal aspiration. Mild retention of solid food in the valleculae which cleared with subsequent oral administration of water or thin barium. Correlate with speech therapy results. Orbit CT 01/23/23 14:05 IMPRESSION: - No definite significant intraorbital soft tissue findings to assessment is limited on a noncontrast CT of the orbits. No retrobulbar mass lesions and no cellulitic changes appreciated. - There are large fluid levels within the left maxillary sinus and within the right frontal sinus the can be correlated for clinical signs of acute sinusitis. - A peripherally ossified structure extending from the dorsal margin of the right nasolacrimal duct into the right maxillary sinus is stable when compared to examinations dated back to 08/24/2008 favoring a benign etiology. Cervical Spine CT 02/14/23 22:15 IMPRESSION: 1. No acute intracranial abnormality. Stable postsurgical changes with right frontotemporal encephalomalacia, global volume loss, and extraocular dilatation of the right lateral ventricle. 2. No cervical spine fracture or traumatic malalignment. Head CT 02/14/23 22:15 IMPRESSION: 1. No acute intracranial abnormality. Stable postsurgical changes with right frontotemporal encephalomalacia, global volume loss, and extraocular dilatation of the right lateral ventricle. 2. No cervical spine fracture or traumatic malalignment. Hip/Pelvis X-Ray 02/14/23 22:25 IMPRESSION: Moderate degenerative changes of the right hip with loss of superolateral joint space. Similar chronic posttraumatic deformity of the right femoral neck with chronic foreshortening. Status post left total hip arthroplasty in unchanged alignment however the lack of a crosstable lateral view limits assessment for dislocation. No acute fracture or dislocation appreciated on the available views. Foot X-Ray 02/22/23 13:50 IMPRESSION: * Postsurgical changes of arthrodesis first metatarsophalangeal joint. * There is developed large osteophyte from the head of the first metatarsal protruding laterally abutting the head of the second metatarsal. This might be the source of patient's pain. * Underlying degenerative osteoarthritis. Foot X-Ray 02/23/23 14:11 IMPRESSION: Mild degenerative changes MTP, PIP and DIP joints. No visible acute fracture or dislocation seen. Medications Medications Current Medications Acetaminophen (Acetaminophen 325 Mg Tablet) 650 mg PO Q6H PRN PRN Reason: Pain, Mild (Pain Scale 1-3) Last Admin: 05/16/23 09:09 Dose: 650 mg Albuterol Sulfate (Albuterol Sulfate 90 Mcg 8 Gm Inhaler) 2 puff INHALE RQ4H PRN PRN Reason: Shortness of Breath/Wheezing Alprazolam (Alprazolam 0.25 Mg Tablet) 0.25 mg PO TID PRN PRN Reason: Anxiety Alprazolam (Alprazolam 0.5 Mg Tablet) 0.5 mg PO BEDTIME TAZ Last Admin: 05/18/23 21:19 Dose: 0.5 mg Amlodipine Besylate (Amlodipine Besylate 5 Mg Tablet) 5 mg PO DAILY TAZ; Protocol Last Admin: 05/19/23 09:03 Dose: 5 mg Artificial Tears (Artificial Tears 15 Ml Drops) 1 drop EYE-BOTH Q2H PRN PRN Reason: Dry Eyes Last Admin: 05/18/23 21:23 Dose: 1 drop Bisacodyl (Bisacodyl 10 Mg Supp.Rect) 10 mg LA DAILY PRN PRN Reason: Constipation Last Admin: 05/07/23 12:39 Dose: 10 mg Capsaicin (Capsaicin 0.025% Cream 60 Gm Tube) 1 appl TOPICAL BEDTIME TAZ; Protocol Last Admin: 05/18/23 21:25 Dose: Not Given Clotrimazole (Clotrimazole 1 % Cream 15 Gm Tube) 1 appl TOPICAL BEDTIME TAZ; Protocol Last Admin: 05/18/23 21:30 Dose: Not Given [place] Butter/Zinc Oxide ([place] Butter/Zinc Oxide Supp.Rect) 1 supp LA BID PRN PRN Reason: Hemorrhoids Divalproex Sodium (Divalproex Sodium 250 Mg Tablet.Dr) 750 mg PO BEDTIME TAZ Last Admin: 05/18/23 21:20 Dose: 750 mg Divalproex Sodium (Divalproex Sodium Sprinkles 125 Mg Cap.) 125 mg PO DAILY@1200 TAZ Last Admin: 05/18/23 12:04 Dose: 125 mg Fluticasone Propionate (Fluticasone Propionate Nasal 16 Gm [place]) 2 spray NOSTRIL-B DAILY PRN PRN Reason: nasal congestion Guaifenesin/Dextromethorphan (Guaifenesin Dm 100/10/5 Ml 5 Ml Syrup) 5 ml PO Q4H PRN PRN Reason: cough Last Admin: 05/12/23 01:29 Dose: 5 ml Hydrocortisone (Hydrocortisone 1 % Cream 28.35 Gm Tube) 1 appl TOPICAL BID PRN; Protocol PRN Reason: itchy feet Last Admin: 04/12/23 21:27 Dose: 1 appl Hydroxyzine HCl (Hydroxyzine Hcl 25 Mg Tablet) 25 mg PO Q4H PRN PRN Reason: Anxiety Last Admin: 05/07/23 01:09 Dose: 25 mg Ibuprofen (Ibuprofen 600 Mg Tablet) 600 mg PO Q6H PRN PRN Reason: Pain, Moderate(Pain Scale 4-6) Last Admin: 05/18/23 18:16 Dose: 600 mg Latanoprost (Latanoprost 0.005 % Ophth No 2.5 Ml Drops) 1 drop EYE-BOTH BEDTIME TAZ Last Admin: 05/18/23 21:23 Dose: 1 drop Lidocaine (Lidocaine 5 % Ointment 35 Gm) 1 appl TOPICAL Q6H PRN; Protocol PRN Reason: pain r foot Last Admin: 05/15/23 20:49 Dose: 1 appl Magnesium Hydroxide (Milk Of Magnesia 30 Ml Oral.Susp) 30 ml PO BID PRN PRN Reason: constipation, stomach/GI upset Last Admin: 05/18/23 14:44 Dose: 30 ml Naltrexone HCl (Naltrexone Hcl 50 Mg Tablet) 50 mg PO DAILY TAZ Last Admin: 05/19/23 09:03 Dose: 50 mg Nortriptyline HCl (Nortriptyline Hcl 25 Mg Capsule) 75 mg PO BEDTIME TAZ Last Admin: 05/18/23 21:19 Dose: 75 mg Nystatin (Nystatin Powder 15 Gm Bottle) 1 appl TOPICAL BEDTIME TAZ; Protocol Last Admin: 05/18/23 21:24 Dose: Not Given Olanzapine (Olanzapine 2.5 Mg Tablet) 2.5 mg PO Q4H PRN PRN Reason: anxiety/restlessness Last Admin: 04/28/23 03:25 Dose: 2.5 mg Olanzapine (Olanzapine 2.5 Mg Tablet) 2.5 mg PO BEDTIME TAZ Last Admin: 05/18/23 21:20 Dose: 2.5 mg Ondansetron HCl (Ondansetron Odt 4 Mg Tab.Rapdis) 4 mg TRANSLINGU Q6H PRN PRN Reason: Nausea and Vomiting Last Admin: 03/20/23 09:13 Dose: 4 mg Polyethylene Glycol (Polyethylene Glycol 3350 17 Gm Powd.Pack) 17 gm PO DAILY PRN PRN Reason: Constipation Last Admin: 05/19/23 09:22 Dose: 17 gm Propranolol HCl (Propranolol Hcl 20 Mg Tablet) 20 mg PO TID TAZ; Protocol Last Admin: 05/19/23 09:03 Dose: 20 mg Senna (Sennosides 8.6 Mg Tablet) 17.2 mg PO Q24H PRN PRN Reason: Constipation Last Admin: 05/16/23 20:41 Dose: 17.2 mg Trazodone HCl (Trazodone Hcl 100 Mg Tablet) 200 mg PO BEDTIME TAZ Last Admin: 05/18/23 21:20 Dose: 200 mg Vortioxetine (Vortioxetine Hydrobromide 10 Mg Tablet) 10 mg PO DAILY [facility] Last Admin: 05/19/23 09:03 Dose: 10 mg Zolpidem Tartrate (Zolpidem Tartrate 5 Mg Tablet) 5 mg PO BEDTIME TAZ Last Admin: 05/18/23 21:20 Dose: 5 mg Allergies Allergies Allergy/AdvReac Type Severity Reaction Status Date / Time fentanyl [FENTANYL] Allergy Intermediate unknown Verified 04/08/22 07:00 Assessment & Plan Assessment & Plan (1) Major depressive disorder, recurrent severe without psychotic features: Status: Acute Code(s): F33.2 - Major depressive disorder, recurrent severe without psychotic features (2) Cognitive and neurobehavioral dysfunction following brain injury: Status: Acute Code(s): G31.89 - Other specified degenerative diseases of nervous system; F09 - Unspecified mental disorder due to known physiological condition; S06.9X9S - Unspecified intracranial injury with loss of consciousness of unspecified duration, sequela (3) Personality disorder in adult: Status: Acute Code(s): F60.9 - Personality disorder, unspecified Plan ALPRAZOLAM 0.25 B.I.D. 0.5 BEDTIME OLANZAPINE ALSO 3 TIMES A DAY CONTINUE DEPAKOTE START PROPRANOLOL 10 T.I.D. THE PATIENT CONFRONTED REGARDING NEGATIVE TOXIC BEHAVIOR DIFFICULTY COPING AND NEGATIVE COMPLICATIONS TO HIS LIFE IF CONTINUE VERBALLY AGGRESSIVE AND TOXIC BEHAVIOR WITH OTHERS DEVALUATION ENCOURAGE REFLECTION STRESS MANAGEMENT COPING STRATEGIES 03/07 continue same treatment 03/08 continue same treatment 03/09 continue same treatment 03/10/23 Lower alprazolam .125 mg bid hold afternoon olanzapine secondary to slurring oversedation cont propranolol 03/11/23 Pt doing better less sedated struggles to maintain pos attitude 03/13 continue tx. 03/14: stable presentation, no change in mgmt. 03/15: appears sedated. no change in mgmt today. to F/U with attending tomorrow re meds for anxiety. 03/16 continue tx. 03/17 continue tx. 03/18 continue tx. 03/19 continue tx. 03/22 continue tx. 03/23 continue tx. 03/24/2023 Continue treatment plan discharge planning 03/25/2023 Continue plan of care 03/26/2023 Continued discharge planning needs much reassurance 03/27 continue tx. 03/28: Continue treatment plan. 03/29: Continue current treatment plan 03/30 continue tx. 03/31 continue tx. 04/02 no changes in treatment 04/03/2023 Patient more reactive belligerent kicked out at another person and was reactive with staff and aggressive. Seems much more triggered by stimulation difficulty reflecting discussed with patient increasing olanzapine alprazolam for behavioral control 04/07/23 Cont depakote olanzpine alprazolam encourage strategies to deal with triggers d/c planning 04/08/2023 Depakote increased by 125 mg nortriptyline increased continue discharge planning CK CHEM UA CBC 04/09/23 Patient has become increasingly depressed olanzapine Depakote could not effective for dysphoria irritability case reviewed dr nelson consider ect mirtazapine 04/10 Add Ambien 5 mg at hs 04/11: Continue current treatment plan. 04/12: Continue current treatment plan. 04/13: Continue current plan of care. 04/14 cont plan of care 04/15/23 Start trintellix 5mg daily 04/17/23 Continue treatment plan patient was seen 04/16 and 04/17 Mood generally improved less labile future oriented feels better able to try keep his future focus not current triggers in the inpatient setting nortriptyline has been increased 75 mg Trintellix 5 mg 04/19 keep same treatment 04/20/2023 Lower olanzapine 2.5 at bedtime continue p.r.n. 2.5 hopefully will help with feelings of sedation monitor mood 04/21 continue tx. 04/22 continue tx. 04/23/23 inc mirtazapine 15 hs alp 0.25 prn 04/24/23 inc hs alprazolam 0.5 hs 04/25 continue tx. 04/26 trazodone added back per pt request, remeron d/c. 04/27/23 pt doing better more stable cont plan of care 04/28/2023 Increase Trintellix to 10 mg daily encouragement reassurance regarding upcoming discharge transition 04/29/23 some dep sx monitor response to trintellix pressure of potential d/c and mtg for d/c planning 04/30/23 cont trintellix nortrip depakote 05/02: Continue current regimen and plans. 05/03: Continue current plans 05/04 restart ambien 5mg po qhs- felt off; start fluticasone for sinus congestion/pain with ibuprofen as needed; capsaisin for acute on chronic lower back pain. 05/05 continue tx. 05/06/2023 Continue plan of care needs much encouragement transitional meeting tomorrow 05/07/23 needs encouragement regarding placement d/c and ability to transition was overwhelmed initially improved later in day no si 05/08/23 Pt restart amlodpine encourage adaptation to transition and safety of hospital 05/09: Continue current treatment plan. 05/10: Continue current treatment plan. 05/13- continue tx. 05/14/23 send d/c meds anxious not overly depressed cont tx 05/15/23 d/c planning cont tx plan 05/16/23 Discharge planning Continue current regime and plan of care 05/17/23 Contine current regime and plan of care 05/18 continue tx. 05/19 continue tx. Reason for continued inpatient stay Substantial Risk for: inability to function Time Spent With Patient Time: Total time managing care of this patient today ____ minutes.
[2023-05-19] MEDS: Milk of Magnesia 30 ML ORAL.SUSP PO (13:54)
[2023-05-19] MEDS: Divalproex Sodium Sprinkles 125 MG CAP.DR.SPR PO (13:54)
[2023-05-19 15:10] VITALS: BP 125/73; PULSE 65
[2023-05-19 18:00] VITALS: BP 123/61; PULSE 65; RESP 16; TEMP 35.9; O2SAT 97
[2023-05-19] MEDS: Nortriptyline HCl 25 MG CAPSULE 75 MG PO (22:33)
[2023-05-19] MEDS: Ibuprofen 600 MG TABLET PO (22:33)
[2023-05-19] MEDS: Divalproex Sodium 250 MG TABLET.DR 750 MG PO (22:34)
[2023-05-19] MEDS: traZODone HCL 100 MG TABLET 200 MG PO (22:35)
[2023-05-19] MEDS: OLANZapine 2.5 MG TABLET PO (22:36)
[2023-05-19] MEDS: Latanoprost 0.005 % Ophth Sol 2.5 ML DROPS 1 DROP EYE-BOTH (22:44)
[2023-05-19] MEDS: Clotrimazole 1 % Cream 15 GM TUBE 1 APPL TOPICAL (22:44)
[2023-05-19] MEDS: Artificial Tears 15 ML DROPS 1 DROP EYE-BOTH (22:48)
[2023-05-19] MEDS: Nystatin Powder 15 GM BOTTLE 1 APPL TOPICAL (22:50)
[2023-05-20 08:00] VITALS: BP 126/72; PULSE 70; RESP 18; TEMP 36.8; O2SAT 97
[2023-05-20] MEDS: amLODIPine Besylate 5 MG TABLET PO (08:43)
[2023-05-20] MEDS: Propranolol HCL 20 MG TABLET PO (08:44)
[2023-05-20] MEDS: Naltrexone HCl 50 MG TABLET PO (08:44)
[2023-05-20] MEDS: Vortioxetine Hydrobromide 10 MG TABLET PO (08:45)
--- NOTE | 2023-05-20 10:08 | PM.PSYDC ---
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 be significantly verbally abusive and demeaning intermittently to staff. Significant time was spent in trying to help the patient develop alternative strategies and stress responses and attempts were made at cognitive behavioral strategies to help patient manage his thinking and also motivational and positive strategies which did seem to be helpful intermittently. This required frequent intervention. Helping the patient with adaptive strategies understanding his multiple losses including functioning autonomy and also difficulty he was having with the gradual deterioration his brother in [place] due to a degenerative neurological condition and he was helped by empathic listening and trying to put his life in perspective. He did have good contact with his ex- which was helpful for him unfortunately he had very limited contact with his son which was disheartened Ng for him. The patient was eventually accepted by [facility] for a fpc setting. They did have to to alterations in a fpc that they had in [facility] which was remodeled in order to be able to take the patient and this disrupts required significant stress tolerance and anxiety management by the patient. He was eventually discharged to a fpc setting complete blood low manage by [facility] patient had a lot of anxiety regarding this although he understood he was dependent on others due to his strength limitations balance limitations in ability to do personal self-care needed help with getting to the bathroom getting to bed getting assistance to get into his wheelchair the patient panic quite difficult to be interval will position and difficult to trust. Extensive time was spent trying to help the patient adaptive to this in a more mindful way with less reactivity to his caretakers. He had been able to do this previously. The patient did seem stable for discharge on 05/20/2023 Depakote had been added for control of mood instability anxiety and intermittent generally verbal aggression. The patient also was being treated for hypertension and propranolol was added for control both blood pressure and help with control of his intermittent explosive states which did have a adrenergic adrenaline type component in this seem to be helpful Status at Discharge Cognitive/behavioral status at discharge: The patient could have somewhat slowed mentation but he was alert oriented somewhat apprehensive about what his new living setting was going to be like and understood that he was going to be staying in the low fpc for a period of time and then moving to his new fpc [place] which had been remodeled with his needs in mind. Patient was quite good with numbers dates his medication planning at other times particularly if he was sedated he would have difficulty accessing information. At times problems with working attention at other times quite alert and clear mood was somewhat anxious was future oriented denied any active thoughts of self-harm although he did experience intermittent hopelessness and what was he still on this earth but was able to manage this was looking forward to having more freedom and engagement in the community He did agree to see a therapist on a regular basis and strongly urged follow-up in recovery and educated the patient on alcohol leading to worsening depression impulsivity and eventually he could not be maintained in the community might need a residential facility referral which he strongly did not want. Continue naltrexone Functional status at discharge: wheelchair bound Overall status at discharge: patient is progressing back to baseline Time Spent with Patient Time attestation: Total time managing care of this patient today ____ minutes. 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 Case management to resume in community at time of discharge. ) [facility] [Other] - 05/20/23 (Discharge to [facility] fpc and attend outpatient appointments. ) [facility]- Dr Rigoberto Toney [Other] - 08/28/23 9:20 am (Your next eye appointment is scheduled for 08/28/23 at 9:20am. ) [facility] [Other] - 1 Week (Your fpc clinician Coby Jenkins at [facility] to schedule toy appointment with A therapist at [facility] with [facility]. ) Dr Wilmer Enciso clinical biostatistician [Other] - 05/27/23 10:45 am (Your next appointment with Dr Wilmer Self's is 05/27/23 at 10:45am. ) [facility] [Other] - 05/21/23 (Referral for PT/OT services.) Addy Haskins MD [Physician] - 06/11/23 2:00 pm (Your next appointment with Dr Haskins is in office on 06/11/23 at 2pm. ) Discharge Medications: New propranolol 20 mg Tablet 20 mg PO TID 30 Days Qty: 90 2RF Protocol: Hold for SBP/HR < HOLD for SBP < : 90 HOLD for HR < : 60 acetaminophen 325 mg Tablet 650 mg PO Q6H PRN (Reason: Pain, Mild (Pain Scale 1-3)) Qty: 90 2RF alprazolam 0.5 mg Tablet 0.5 mg PO BEDTIME Qty: 30 2RF divalproex 125 mg Capsule, Delayed Rel Sprinkle 125 mg PO DAILY@1200 Qty: 30 2RF divalproex 250 mg Tablet,Delayed Release (Dr/Ec) 750 mg PO BEDTIME Qty: 90 2RF ibuprofen 600 mg Tablet 600 mg PO Q6H PRN (Reason: Pain, Moderate(Pain Scale 4-6)) Qty: 90 2RF naltrexone 50 mg Tablet 50 mg PO DAILY Qty: 30 2RF nortriptyline 75 mg capsule 75 mg PO BEDTIME 30 Days Qty: 30 2RF olanzapine 2.5 mg Tablet 2.5 mg PO BEDTIME Qty: 30 2RF trazodone 100 mg Tablet 200 mg PO BEDTIME Qty: 60 2RF Trintellix 10 mg Tablet 10 mg PO DAILY Qty: 30 2RF zolpidem 5 mg Tablet 5 mg PO BEDTIME Qty: 30 2RF fluticasone propionate 50 mcg/actuation [place],Suspension 2 spray intranasal DAILY PRN (Reason: nasal congestion) Qty: 16 1RF magnesium hydroxide [Milk of Magnesia] 400 mg/5 mL Suspension 30 ml PO BID PRN (Reason: constipation, stomach/GI upset) 30 Days Qty: 355 0RF bisacodyl [Gentle Laxative (bisacodyl)] 10 mg Suppository 10 mg ID DAILY PRN (Reason: Constipation) 30 Days Qty: 30 2RF polyethylene glycol 3350 17 gram Powder In Packet 17 g PO DAILY PRN (Reason: Constipation) 30 Days Qty: 30 2RF clotrimazole 1 % Cream 1 appl topical BEDTIME Qty: 45 2RF Protocol: Apply to: Apply to: base of toes Rx Instructions: apply to toes bilaterally Calmol-4 76-10 % Suppository 1 supp ID BID PRN (Reason: Hemorrhoids) 30 Days Qty: 60 0RF dextromethorphan-guaifenesin 10-100 mg/5 mL Syrup 5 ml PO Q4H PRN (Reason: cough) 30 Days Qty: 100 0RF Continued multivitamin Tablet 1 tab PO DAILY 30 Days Qty: 30 2RF latanoprost 0.005 % drops 1 drp ophthalmic (eye) BEDTIME Qty: 7.5 1RF Rx Instructions: 1 drop into both eyes amlodipine 5 mg Tablet 5 mg PO DAILY 30 Days Qty: 30 2RF Protocol: Hold for SBP< HOLD for SBP < : 90 albuterol sulfate 90 mcg/actuation HFA aerosol inhaler 180 mcg inhalation Q6H PRN (Reason: Wheezing) Qty: 6.7 1RF finasteride 5 mg tablet 1 tab PO DAILY 30 Days Qty: 30 2RF cholecalciferol (vitamin D3) [Vitamin D3] 10 mcg (400 unit) Capsule 10 mcg PO DAILY 30 Days Qty: 30 2RF Discontinued oxybutynin chloride 10 mg tablet extended release 24hr 10 mg PO DAILY nortriptyline 50 mg capsule 50 mg PO BEDTIME pramipexole 0.25 mg tablet 0.25 mg PO TID Qty: 84 0RF trazodone 100 mg tablet 200 mg PO BEDTIME 30 Days Qty: 60 2RF quetiapine 100 mg tablet 100 mg PO BEDTIME lamotrigine [Lamictal] 200 mg tablet 1 tab PO BID lisinopril 20 mg tablet 1 tab PO DAILY lidocaine [Lidoderm] 5 % Adhesive Patch,Medicated 1 patch TOPICAL Q12H PRN (Reason: Pain) Rx Instructions: leave on most painful area for up to 12 hrs omeprazole 20 mg capsule,delayed release(DR/EC) 1 cap PO BID tamsulosin 0.4 mg capsule 1 cap PO DAILY hydralazine 25 mg Tablet 25 mg PO TID 30 Days Qty: 90 0RF Protocol: Hold for SBP< HOLD for SBP < : 90 trazodone 150 mg tablet 1 tab PO BEDTIME PRN (Reason: if no effect from teresita dose after 1 hr) gabapentin 400 mg capsule 1 cap PO TID quetiapine 50 mg tablet 50 mg PO BID@0900,1700 Rx Instructions: take 1 am 1 in aft quetiapine 25 mg tablet 25 mg PO BID@0900,1700 Patient Comments: 1 am 1 in afternoon added to 50 mg dose for total dose 75 mg 2 x day morning and aft lorazepam 1 mg tablet 1 mg PO Q6H PRN (Reason: anxiety) Qty: 60 2RF Rx Instructions: max 2 x 24 hrs Do NOT GIVE IF INTOXICATED Vivitrol 380 mg suspension,extended rel recon 380 mg IM Q4W Qty: 1 5RF No Action capsaicin 0.025 % cream 1 appl topical BEDTIME Qty: 60 2RF Rx Instructions: apply to lower back and feet nystatin 100,000 unit/gram powder 1 appl topical BEDTIME 30 Days Qty: 15 2RF Protocol: Apply to: Apply to: GROIN alprazolam 0.25 mg tablet 0.25 mg PO BID@0830,1430 Qty: 60 1RF ondansetron HCl 4 mg Tablet 4 mg PO Q6H PRN (Reason: Nausea And Vomiting) hydrocortisone 1 % Cream 1 appl TOPICAL BID PRN (Reason: itchy feet) Artificial Tears (PF) Dropperette 1 drp OPHTHALMIC (EYE) Q2H PRN (Reason: Dry Eyes) Rx Instructions: 1 drop into each eye sennosides [Senna Lax] 8.6 mg tablet 17.2 mg PO BEDTIME PRN (Reason: Constipation) tamsulosin 0.4 mg Capsule 0.4 mg PO BEDTIME Qty: 30 0RF Discharge Orders: Discharge Order (Routine); Ordered 05/20/23 Ordered By: Addy Haskins Diet: Advance to usual diet Activity on Discharge: uses wheelchair Stand Alone Forms: Patient Portal Discharge page Care Plan Goals: Sobriety from alcohol important medically and psychiatrically improved relations with caretakers develop strategies to manage anxiety and depressive sx increase socialization Health Concerns: hypertension mood lability with head in jury depressed mood prone to ruminating alcohol abuse Plan of Treatment: recovery meetings naltrexone see therapist weekly medication go to senior center Assessment: future oriented alert no si no psychosis Discharge Date/Time: 05/20/23 11:00
== END 2023-05-20 11:00 | disposition other institution (70) | DRG 885 ==
LOC: HO.ED 10-04 12:03 → HO.PGERI 10-04 16:02
PROVIDERS: Internal Medicine; Physician Assistant; Psychiatry & Neurology Psychiatry; Social Worker; Admitting Provider Registered Nurse; Emergency Provider Emergency Medicine Emergency Medical Services; Visit Provider Psychiatry & Neurology Psychiatry
DX: F33.2 Major depressive disorder, recurrent severe without psychotic features (principal); U07.1 COVID-19; R45.851 Suicidal ideations; S09.90XA Unspecified injury of head, initial encounter; W05.0XXA Fall from non-moving wheelchair, initial encounter; G31.89 Other specified degenerative diseases of nervous system; R13.10 Dysphagia, unspecified; L30.9 Dermatitis, unspecified; F41.9 Anxiety disorder, unspecified; S06.9X9S Unspecified intracranial injury with loss of consciousness of unspecified duration, sequela; M25.774 Osteophyte, right foot; B35.3 Tinea pedis; F60.9 Personality disorder, unspecified; F10.20 Alcohol dependence, uncomplicated; G40.909 Epilepsy, unspecified, not intractable, without status epilepticus; Z99.3 Dependence on wheelchair; Z75.1 Person awaiting admission to adequate facility elsewhere; Z79.899 Other long term (current) drug therapy
CPT/HCPCS: 0241U; 36415; 70450; 70480; 70551; 71045; 71046; 72125; 73521; 73620; 74230; 80048; 80053; 80061; 80076; 80164; 80175; 80307; 80335; 81003; 82077; 82140; 82607; 82746; 82977; 83036; 83605; 83735; 84439; 84443; 85025; 86481; 87633; 87635; 92526; 92610; 92611; 93005; 99285

== ENCOUNTER → 2022-10-04 15:52 | Outpatient (BNV) | payer MEDICARE, MEDICAID, SELFPAY | PROVIDERS: Admitting Provider Registered Nurse; Emergency Provider Emergency Medicine Emergency Medical Services; Visit Provider Psychiatry & Neurology Psychiatry | DX: F33.2 Major depressive disorder, recurrent severe without psychotic features (principal); G31.89 Other specified degenerative diseases of nervous system; F09 Unspecified mental disorder due to known physiological condition; S06.9X9S Unspecified intracranial injury with loss of consciousness of unspecified duration, sequela; F60.9 Personality disorder, unspecified | CPT/HCPCS: 99231; 99232; 99239 ==

== ENCOUNTER 2022-11-26 12:57 | Outpatient (REF) | payer MEDICARE, MEDICAID, SELFPAY | END 2022-11-26 12:58 | disposition home or self-care (01) | LOC: HO.HAP 12:57 | PROVIDERS: Visit Provider Internal Medicine Geriatric Medicine | DX: Z13.89 Encounter for screening for other disorder (principal) ==

== ENCOUNTER 2023-01-26 11:06 | Outpatient (REF) | payer MEDICARE, MEDICAID, SELFPAY | END 2023-01-26 11:07 | disposition home or self-care (01) | LOC: HO.HAP 11:06 | PROVIDERS: Visit Provider Internal Medicine | DX: Z46.1 Encounter for fitting and adjustment of hearing aid (principal) | CPT/HCPCS: V5266 ==

== ENCOUNTER 2023-01-26 13:27 | Outpatient (REF) | payer SELFPAY | END 2023-01-26 13:28 | disposition home or self-care (01) | LOC: HO.HAP 13:27 | PROVIDERS: Visit Provider Internal Medicine | DX: Z46.1 Encounter for fitting and adjustment of hearing aid (principal); H90.A32 Mixed conductive and sensorineural hearing loss, unilateral, left ear with restricted hearing on the contralateral side; H90.A11 Conductive hearing loss, unilateral, right ear with restricted hearing on the contralateral side | CPT/HCPCS: V5267 ==

== ENCOUNTER 2023-04-17 16:29 | Outpatient (REF) | payer MEDICARE, MEDICAID, SELFPAY | END 2023-04-17 16:30 | disposition home or self-care (01) | LOC: HO.HAP 16:29 | DX: Z13.89 Encounter for screening for other disorder (principal) ==

== ENCOUNTER 2023-06-17 14:07 | Outpatient (AMB) | payer MEDICARE, MEDICAID, SELFPAY ==
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
== END 2023-06-17 14:51 | disposition home or self-care (01) ==
LOC: HO.HOP 14:07
PROVIDERS: Visit Provider Psychiatry & Neurology Psychiatry
DX: F60.9 Personality disorder, unspecified (principal); G31.89 Other specified degenerative diseases of nervous system; F09 Unspecified mental disorder due to known physiological condition; S06.9X9S Unspecified intracranial injury with loss of consciousness of unspecified duration, sequela; F33.2 Major depressive disorder, recurrent severe without psychotic features
CPT/HCPCS: 90833; 99213

== ENCOUNTER → 2023-06-17 14:07 | Outpatient (BNVA) | payer MEDICARE, MEDICAID, SELFPAY | PROVIDERS: Visit Provider Psychiatry & Neurology Psychiatry | DX: G31.89 Other specified degenerative diseases of nervous system (principal); F09 Unspecified mental disorder due to known physiological condition; S06.9X9S Unspecified intracranial injury with loss of consciousness of unspecified duration, sequela; F33.2 Major depressive disorder, recurrent severe without psychotic features | CPT/HCPCS: 90833; 99212 ==

== ENCOUNTER 2023-06-30 09:49 | Inpatient (IN) | payer MEDICARE, MEDICAID, SELFPAY ==
[2023-06-30] VITALS (9 sets, daily range): BP systolic 106–160; BP diastolic 69–100; PULSE 92–112; RESP 14–24; TEMP 36.3–37.7; O2SAT 93–100; BMI 29.8; BMI 31.0
--- NOTE | ~2023-06-30 | CT_ITS ---
EXAMINATION: CT ANGIOGRAM OF THE CHEST WITH AND WITHOUT CONTRAST (CT PULMONARY ANGIOGRAM FOR PE) CLINICAL INFORMATION: Shortness of breath. Rule out PE. COMPARISON: None available. TECHNIQUE: Prior to contrast administration, noncontrast localization images were obtained. Subsequently, multidetector volumetric imaging was performed from the thoracic inlet to below the diaphragms following the administration of 65 mL Omnipaque 350 intravenous contrast. No contrast reaction reported. Sagittal, coronal, and MIP oblique sagittal reformatted images were obtained on the CT workstation, uploaded to PACS, and reviewed. This CT examination was performed using dose optimization techniques as appropriate, variously including the following: *Automated exposure control *Adjustment of mA and/or kV according to patient size (this includes techniques or standardized protocols for targeted exams where dose is matched to indication/reason for exam; i.e. extremities or head) *Use of iterative reconstruction technique Total exam dose-length product 576 mGy-cm. FINDINGS: The lung volumes are low. QUALITY OF STUDY/CONTRAST BOLUS: Satisfactory. PULMONARY ARTERIES: No pulmonary emboli. THORACIC AORTA: No aneurysm. LUNG: There is bilateral dependent lung base consolidation. The lungs are otherwise clear. PLEURA: No pleural effusion or pneumothorax. MEDIASTINUM: Normal heart size. No pericardial effusion. No hilar or mediastinal lymphadenopathy. No evidence of septal bowing or right heart strain. CORONARY ARTERY CALCIFICATION: None visualized on this study. CHEST WALL/AXILLA: No axillary or internal mammary lymphadenopathy. OSSEOUS STRUCTURES: There is mild diffuse thoracolumbar disc degenerative change. There is mild loss of height of T11, T12 and L1. UPPER ABDOMEN: The liver is irregular in contour. There are adjacent small right midpole renal cysts. No reflux of contrast into the hepatic veins to suggest elevated right heart pressures. CT/CT angio chest PE protocol IMPRESSION: No evidence for pulmonary embolism. Dependent posterior lung base consolidation most consistent with atelectasis. Irregular liver possibly hepatocellular disease/cirrhosis. VTE: Negative.
--- NOTE | ~2023-06-30 | XR_ITS ---
EXAMINATION: XR CHEST CLINICAL INFORMATION: Aspiration COMPARISON: 06/30/2023 and selected prior TECHNIQUE: AP portable upper view of the chest was obtained. FINDINGS: Nonstandard positioning, patient leaning and rotated to the right. Low lung volumes. Streaky atelectasis at both bases. No gross new lobar consolidation to suggest aspiration. Recommend short-term follow-up with improved positioning and depth of inspiration. Stable heart and mediastinum. Nonobstructive gas pattern. XR/XR chest 1V IMPRESSION: Technically limited low volume portable radiograph with nonstandard positioning predominantly demonstrates increasing bibasilar atelectasis. Recommend short-term follow-up.
--- NOTE | ~2023-06-30 | XR_ITS ---
EXAMINATION: XR CHEST CLINICAL INFORMATION: Shortness of breath COMPARISON: 11/14/2022 TECHNIQUE: Frontal view of the chest was obtained. FINDINGS: Heart and mediastinum within normal limits. No vascular congestion. Persistently low lung volumes with slight elevation of the right hemidiaphragm with bibasilar atelectasis. No consolidation/air bronchograms or effusions. Bony structures are intact. XR/XR chest 1V IMPRESSION: Low lung volumes, bibasilar atelectasis, elevated right hemidiaphragm. No interval change.
--- NOTE | 2023-06-30 10:05 | ECG_ITS ---
Test Reason : SOB Blood Pressure : / mmHG Vent. Rate : 107 BPM Atrial Rate : 107 BPM P-R Int : 202 ms QRS Dur : 096 ms QT Int : 342 ms P-R-T Axes : 057 -21 095 degrees QTc Int : 456 ms Sinus tachycardia Inferior infarct (cited on or before 27-OCT-2022) ST & T wave abnormality, consider lateral ischemia Abnormal ECG When compared with ECG of 04-JAN-2023 11:32, MS interval has decreased Vent. rate has increased BY 38 BPM Referred By: Jasmyn Inman Electronically Signed By:MCKENNA DIAZ
--- NOTE | 2023-06-30 10:07 | ED.GENADULT ---
HPI - General Adult General Chief complaint: General Medical Stated complaint: Possible pneumonia Time Seen by Provider: 06/30/23 09:55 Source: patient and EMS Mode of arrival: EMS Limitations: no limitations History of Present Illness HPI narrative: 67-year-old male wheelchair bound with history of TBI with cognitive and neurobehavioral dysfunction, seizure disorder, TIA, subdural hematoma, depression, hypertension, anxiety, alcohol use disorder patient presented today for evaluation of shortness of breath and coughing with a concern of aspirate pneumonia. As per patient patient was seen and evaluated at [facility] yesterday (records was obtained from [facility] patient had x-ray/CT of the chest showed no acute pathology and patient was discharged) patient returns today with worsening of his symptoms. Related Data Home Medications Medication Instructions Recorded Confirmed dextran 70-hypromellose eye drops 1 drp ophthalmic (eye) Q2H PRN Dry 06/30/23 06/30/23 in a dropperette (Artificial Tears Eyes (PF) drops in a dropperette) hydrocortisone 1 % topical cream 1 appl topical BID PRN itchy feet 06/30/23 06/30/23 ondansetron HCl 4 mg tablet 4 mg PO Q6H PRN Nausea And Vomiting 06/30/23 06/30/23 sennosides 8.6 mg tablet (Senna 17.2 mg PO BEDTIME PRN Constipation 06/30/23 06/30/23 Lax) Previous Rx's Medication Instructions Recorded acetaminophen 325 mg tablet 650 mg PO Q6H PRN Pain, Mild (Pain 05/14/23 Scale 1-3) #90 tabs albuterol sulfate 90 mcg/actuation 180 mcg inhalation Q6H PRN 05/14/23 aerosol inhaler Wheezing #6.7 grams alprazolam 0.25 mg tablet 0.25 mg PO BID@0830,1430 #60 tabs 05/14/23 alprazolam 0.5 mg tablet 0.5 mg PO BEDTIME #30 tabs 05/14/23 amlodipine 5 mg tablet 5 mg PO DAILY 30 days #30 tabs 05/14/23 bisacodyl 10 mg rectal suppository 10 mg KS DAILY PRN Constipation 30 05/14/23 (Gentle Laxative (bisacodyl)) days #30 ea cholecalciferol (vitamin D3) 10 10 mcg PO DAILY 30 days #30 caps 05/14/23 mcg (400 unit) capsule (Vitamin D3) clotrimazole 1 % topical cream 1 appl topical BEDTIME #45 grams 05/14/23 cocoa butter-zinc oxide 76 %-10 % 1 supp KS BID PRN Hemorrhoids 30 05/14/23 rectal suppository (Calmol-4) days #60 ea dextromethorphan-guaifenesin 10 5 ml PO Q4H PRN cough 30 days #100 05/14/23 mg-100 mg/5 mL oral syrup mL divalproex 125 mg capsule,delayed 125 mg PO DAILY@1200 #30 caps 05/14/23 release sprinkle divalproex 250 mg tablet,delayed 750 mg PO BEDTIME #90 tabs 05/14/23 release finasteride 5 mg tablet 1 tab PO DAILY 30 days #30 tabs 05/14/23 fluticasone propionate 50 2 spray intranasal DAILY PRN nasal 05/14/23 mcg/actuation nasal congestion #16 grams spray,suspension ibuprofen 600 mg tablet 600 mg PO Q6H PRN Pain, 05/14/23 Moderate(Pain Scale 4-6) #90 tabs latanoprost 0.005 % eye drops 1 drp ophthalmic (eye) BEDTIME 05/14/23 #7.5 mL magnesium hydroxide 400 mg/5 mL 30 ml PO BID PRN constipation, 05/14/23 oral suspension (Milk of Magnesia) stomach/GI upset 30 days #355 mL multivitamin 1 tab PO DAILY 30 days #30 tabs 05/14/23 naltrexone 50 mg tablet 50 mg PO DAILY #30 tabs 05/14/23 nortriptyline 75 mg capsule 75 mg PO BEDTIME 30 days #30 caps 05/14/23 olanzapine 2.5 mg tablet 2.5 mg PO BEDTIME #30 tabs 05/14/23 polyethylene glycol 3350 17 gram 17 g PO DAILY PRN Constipation 30 05/14/23 oral powder packet days #30 ea propranolol 20 mg tablet 20 mg PO TID 30 days #90 tabs 05/14/23 trazodone 100 mg tablet 200 mg PO BEDTIME #60 tabs 05/14/23 vortioxetine 10 mg tablet 10 mg PO DAILY #30 tabs 05/14/23 (Trintellix) zolpidem 5 mg tablet 5 mg PO BEDTIME #30 tabs 05/14/23 capsaicin 0.025 % topical cream 1 appl topical BEDTIME #60 grams 05/28/23 nystatin 100,000 unit/gram topical 1 appl topical BEDTIME 30 days #15 06/30/23 powder grams Allergies Allergy/AdvReac Type Severity Reaction Status Date / Time fentanyl [FENTANYL] Allergy Intermediate unknown Verified 06/30/23 09:56 Review of Systems Review of Systems: All other systems are reviewed and are negative Constitutional: Reports as per HPI and Reports no additional constitutional complaints Eyes: Reports as per HPI and Reports no additional eye complaints Reports system reviewed and no additional complaints, except as documented Cardiovascular: Reports as per HPI and Reports no additional cardiovascular complaints Respiratory: Reports as per HPI and Reports no additional respiratory complaints Gastrointestinal: Reports as per HPI and Reports no additional gastrointestinal complaints Genitourinary: Reports no additional female genitourinary complaints Musculoskeletal: Reports no additional musculoskeletal complaints Skin/Breast: Reports system reviewed and no additional complaints, except as docu Psychiatric: Reports no additional psychiatric complaints Endocrine: Reports no additional endocrine complaints Hematologic/Lymphatic: Reports no additional hematologic/lymphatic complaints Allergic/Immunologic: Reports no additional allergic/immunologic complaints Reports system reviewed and no additional complaints, except as documented and Reports Abnormal speech present [facility] Past Medical History Medical History (Updated 06/30/23 @ 16:44 by Freda Bella NP) Aggressive behavior Alcohol abuse Anxiety Cognitive and neurobehavioral dysfunction following brain injury Depression Hernia HTN (hypertension) Hypertension Major depressive disorder, recurrent Seizure disorder Sinusitis Subdural hematoma TBI (traumatic brain injury) TIA (transient ischemic attack) Surgical History H/O brain surgery H/O craniotomy H/O umbilical hernia repair History of cholecystectomy History of hip replacement S/P cholecystectomy Family History Family History Other Family history unobtainable Social History Social History Household Members: Other Household Members Other:: [employer] Housing: Other Housing Other:: halfway Do you presently have visiting nurse or other home services: Yes Alcohol intake: never Patient Tobacco Use Status: Never used Tobacco Smoked in Last 30 Days: No e-Cigarette/Vaping Use: Never Used Second Hand Smoke Exposure: No Use of substances other than those prescribed or required for medical reasons: No Advance Directives: Yes Advance Directives Information Provided: Yes Advance Directives on File: No Advance Directives Date on File: 05/27/19 Nutrition Risks: No Nutritional Risk service: No Current occupational status: disabled Sexual orientation: Straight/Heterosexual Physical Exam ED Vital Signs: Vital Signs - 24 hr 06/30/23 09:56 06/30/23 10:16 06/30/23 11:07 Temperature 100 F Pulse Rate 107 H 102 H Respiratory Rate 24 H 22 H Blood Pressure 137/74 127/73 Pulse Oximetry 93 96 Oxygen Delivery Method Room Air Nasal Cannula Oxygen Flow Rate 2 06/30/23 14:38 Temperature 98.5 F Pulse Rate 103 H Respiratory Rate 14 Blood Pressure 106/69 Pulse Oximetry 96 Oxygen Delivery Method Room Air Nasal Cannula Oxygen Flow Rate 2 BMI result Body Mass Index 29.8 Vital signs have been reviewed as appeared to be correct. Blood pressure normal. Heart rate elevated. Respiration rate elevated. Temperature normal. Oxygen saturation normal. Appearance: Alert. Oriented X3. No acute distress. Head: Normal external exam. Normocephalic. Atraumatic. No Horn signs noted. No raccoon eyes noted Eyes: PERRLA. EOMI. Conjunctiva and sclera normal. Eyelids normal. ENT: TM's Normal. Pharynx normal. Uvula midline. Moist mucous membranes. No trismus noted. No drooling noted. No muffled voice noted. Neck: Normal inspection. Neck supple. FROM. No adenopathy. Thyroid Normal. No meningeal signs. No neck mass noted. CVS: Normal heart rate and rhythm. Heart sound normal. No murmurs noted. Pulses normal throughout. Respiratory: No respiratory distress. Painless inspiration. Breath sounds normal. diffuse bilateral crackles to all lung river. Chest nontender. No accessory muscle usage noted or decreased air movement noted. Abdomen: Soft and nontender. Bowel sounds normal in all 4 quadrants. No distention noted. No organomegaly noted. No visible injury noted. Back: No CVA tenderness. Full range of motion noted. Skin: Skin warm and dry. Normal skin color. Normal skin turgor. No rashes/lesions/lacerations noted. Extremities: No lower extremity edema. Extremities exhibit normal range of motion. Extremities nontender. Neuro: Oriented X 3. Cranial nerve exam: II-XII are grossly intact No motor deficit. No sensory deficit. Reflexes normal. Course Course Course Narrative: Pneumonia with severe sepsis will start the patient on ceftriaxone and vancomycin. No evidence of pneumonia on the x-ray or the CT nevertheless, patient with cough and greenish sputum and meet criteria for severe sepsis with no other source of infection. Medications Administered Generic Name Dose Route Start Last Admin Trade Name Freq PRN Reason Stop Dose Admin Acetaminophen 650 mg 06/30/23 16:48 06/30/23 17:23 Acetaminophen 325 Mg Tablet PO 650 mg Q6H PRN Administration Pain, Mild (Pain Scale 1-3) Vancomycin HCl 2,000 mg in 500 mls @ 250 mls/hr 06/30/23 16:30 06/30/23 17:46 Vancomycin/Ns IV 06/30/23 18:29 250 mls/hr ONCE ONE Administration Discontinued Medications Generic Name Dose Route Start Last Admin Trade Name Freq PRN Reason Stop Dose Admin Sodium Chloride 1,000 mls @ 999 mls/hr 06/30/23 10:05 06/30/23 11:28 Ns IV 06/30/23 11:05 Infused .Q1H1M ONE Infusion Ceftriaxone Sodium 1 gm/ 50 mls @ 100 mls/hr 06/30/23 10:26 06/30/23 11:34 Sodium Chloride IV 06/30/23 10:55 Infused ONCE ONE Infusion Iohexol 65 ml 06/30/23 14:59 06/30/23 15:00 Iohexol 350 Mg/Ml 100 Ml Infus..Btl IV 06/30/23 15:00 65 ml ONCE ONE Administration Medical Decision Making Differential Diagnosis Differential Diagnoses: The differential diagnosis associated with the presentation includes (Pulmonary embolism, pneumonia, pneumothorax, pleural effusion, tracheitis, severe electrolyte abnormality, anemia, sepsis.) Admission/Observation Consideration of admission/observation: Escalation of care including admission/observation considered Consult Healthcare Provider Management of the patient was discussed with: Hospitalist (Dr. Verduzco) Lab Data MDM Lab Attestation statement: I reviewed the patient's lab results. 06/30/23 10:21 06/30/23 10:21 Labs: Lab Results 06/30/23 06/30/23 06/30/23 Range/Units 10:21 10:21 10:21 WBC 21.9 H (4.8-10.8) X10*3/uL RBC 4.90 (4.60-5.80) X10*6/uL Hgb 15.5 (14.0-18.0) g/dl Hct 45.9 (42.0-52.0) % MCV 93.7 (80.0-98.0) fL MCH 31.6 (27.0-33.0) pg MCHC 33.8 (31.0-36.0) g/dl RDW 12.4 (11.0-16.0) % Plt Count 179 (160-400) X10*3/uL MPV 9.6 (9.4-12.4) fL Immature Gran % (Auto) 0.6 H (0.0-0.4) % Neut % (Auto) 82.3 H (45-73) % Lymph % (Auto) 4.7 L (20-40) % Brown % (Auto) 12.2 H (2-11) % Eos % (Auto) 0.0 (0-4) % Baso % (Auto) 0.2 (0-2) % Lymph # (Auto) 1.0 L (1.2-4.9) X10*3/uL Brown # (Auto) 2.7 H (0.1-1.2) X10*3/uL Eos # (Auto) 0.0 (0.0-0.4) X10*3/uL Baso # (Auto) 0.1 (0.0-0.2) X10*3/uL Abs Immat Gran (auto) 0.13 H (0.00-0.03) X10*3/uL Absolute Neuts (auto) 18.0 H (2.0-8.3) x10*3/uL Absolute Nucleated RBC 0.000 (0.0-0.012) X10*3/uL Nucleated RBC % (auto) 0.0 (0.0-0.2) /100WBC Smear Tech's Comments VERIFIED Sodium 140 (135-145) mmol/L Potassium 4.4 (3.3-5.1) mmol/L Chloride 102 (96-108) mmol/L Carbon Dioxide 28 (22-29) mmol/L Anion Gap 14 (12-20) BUN 19 H (9-16) mg/dL Creatinine 0.95 (0.5-1.4) mg/dL Estim Creat Clear Calc 96.2 Estimated GFR > 60 Random Glucose 119 H (60-115) mg/dL Lactic Acid (0.5-2.0) mmol/L Lactic Acid F/U @ 2Hr (0.5-2.0) mmol/L Calcium 9.7 (8.4-10.2) mg/dL Total Bilirubin 0.8 (0.0-1.0) mg/dL Direct Bilirubin 0.3 (0.0-0.5) mg/dL AST 53 H (5-37) U/L ALT 81 H (0-40) U/L Alkaline Phosphatase 84 (39-117) U/L Troponin I High Sens 8.4 (<3.5-35.0) ng/L B-Natriuretic Peptide (<100) pg/mL Total Protein 7.2 (6.5-8.0) g/dL Albumin 4.1 (3.5-5.0) g/dL Lipase 15 (8-78) U/L Influenza Type A (PCR) (Negative) Influenza Type B (PCR) (Negative) RSV RNA Qual (PCR) (Negative) SARS-CoV-2 RNA (RT-PCR) (Negative) 06/30/23 06/30/23 06/30/23 Range/Units 10:21 10:21 10:22 WBC (4.8-10.8) X10*3/uL RBC (4.60-5.80) X10*6/uL Hgb (14.0-18.0) g/dl Hct (42.0-52.0) % MCV (80.0-98.0) fL MCH (27.0-33.0) pg MCHC (31.0-36.0) g/dl RDW (11.0-16.0) % Plt Count (160-400) X10*3/uL MPV (9.4-12.4) fL Immature Gran % (Auto) (0.0-0.4) % Neut % (Auto) (45-73) % Lymph % (Auto) (20-40) % Brown % (Auto) (2-11) % Eos % (Auto) (0-4) % Baso % (Auto) (0-2) % Lymph # (Auto) (1.2-4.9) X10*3/uL Brown # (Auto) (0.1-1.2) X10*3/uL Eos # (Auto) (0.0-0.4) X10*3/uL Baso # (Auto) (0.0-0.2) X10*3/uL Abs Immat Gran (auto) (0.00-0.03) X10*3/uL Absolute Neuts (auto) (2.0-8.3) x10*3/uL Absolute Nucleated RBC (0.0-0.012) X10*3/uL Nucleated RBC % (auto) (0.0-0.2) /100WBC Smear Tech's Comments Sodium (135-145) mmol/L Potassium (3.3-5.1) mmol/L Chloride (96-108) mmol/L Carbon Dioxide (22-29) mmol/L Anion Gap (12-20) BUN (9-16) mg/dL Creatinine (0.5-1.4) mg/dL Estim Creat Clear Calc Estimated GFR Random Glucose (60-115) mg/dL Lactic Acid 2.7 H* (0.5-2.0) mmol/L Lactic Acid F/U @ 2Hr (0.5-2.0) mmol/L Calcium (8.4-10.2) mg/dL Total Bilirubin (0.0-1.0) mg/dL Direct Bilirubin (0.0-0.5) mg/dL AST (5-37) U/L ALT (0-40) U/L Alkaline Phosphatase (39-117) U/L Troponin I High Sens (<3.5-35.0) ng/L B-Natriuretic Peptide 82 (<100) pg/mL Total Protein (6.5-8.0) g/dL Albumin (3.5-5.0) g/dL Lipase (8-78) U/L Influenza Type A (PCR) NEGATIVE (Negative) Influenza Type B (PCR) NEGATIVE (Negative) RSV RNA Qual (PCR) NEGATIVE (Negative) SARS-CoV-2 RNA (RT-PCR) NEGATIVE (Negative) 06/30/23 Range/Units 13:59 WBC (4.8-10.8) X10*3/uL RBC (4.60-5.80) X10*6/uL Hgb (14.0-18.0) g/dl Hct (42.0-52.0) % MCV (80.0-98.0) fL MCH (27.0-33.0) pg MCHC (31.0-36.0) g/dl RDW (11.0-16.0) % Plt Count (160-400) X10*3/uL MPV (9.4-12.4) fL Immature Gran % (Auto) (0.0-0.4) % Neut % (Auto) (45-73) % Lymph % (Auto) (20-40) % Brown % (Auto) (2-11) % Eos % (Auto) (0-4) % Baso % (Auto) (0-2) % Lymph # (Auto) (1.2-4.9) X10*3/uL Brown # (Auto) (0.1-1.2) X10*3/uL Eos # (Auto) (0.0-0.4) X10*3/uL Baso # (Auto) (0.0-0.2) X10*3/uL Abs Immat Gran (auto) (0.00-0.03) X10*3/uL Absolute Neuts (auto) (2.0-8.3) x10*3/uL Absolute Nucleated RBC (0.0-0.012) X10*3/uL Nucleated RBC % (auto) (0.0-0.2) /100WBC Smear Tech's Comments Sodium (135-145) mmol/L Potassium (3.3-5.1) mmol/L Chloride (96-108) mmol/L Carbon Dioxide (22-29) mmol/L Anion Gap (12-20) BUN (9-16) mg/dL Creatinine (0.5-1.4) mg/dL Estim Creat Clear Calc Estimated GFR Random Glucose (60-115) mg/dL Lactic Acid (0.5-2.0) mmol/L Lactic Acid F/U @ 2Hr 2.9 H* (0.5-2.0) mmol/L Calcium (8.4-10.2) mg/dL Total Bilirubin (0.0-1.0) mg/dL Direct Bilirubin (0.0-0.5) mg/dL AST (5-37) U/L ALT (0-40) U/L Alkaline Phosphatase (39-117) U/L Troponin I High Sens (<3.5-35.0) ng/L B-Natriuretic Peptide (<100) pg/mL Total Protein (6.5-8.0) g/dL Albumin (3.5-5.0) g/dL Lipase (8-78) U/L Influenza Type A (PCR) (Negative) Influenza Type B (PCR) (Negative) RSV RNA Qual (PCR) (Negative) SARS-CoV-2 RNA (RT-PCR) (Negative) Independent Interpretation I performed an independent interpretation of an: EKG (Sinus tachycardia at 107, left axis deviation, normal intervals.), Plain X-Ray (Low lung volumes, bibasilar atelectasis, elevated right hemidiaphragm. No interval change.) and CT Scan (Chest angio:No evidence for pulmonary embolism. Dependent posterior lung base consolidation most consistent with atelectasis. ) Radiology Impression Discussion of test interpretation with radiology: I have reviewed the radiologist's reading. Discharge Plan Discharge Clinical Impression: Pneumonia, Sepsis Patient Disposition: Admitted As Inpatient
[2023-06-30] MEDS: 0.9 % Sodium Chloride 1,000 ML 999 ML IV (10:26)
--- NOTE | 2023-06-30 10:26 | PC.NURSE ---
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 applied 2L O2% via nasal cannula as pt was resting at 92%. 20gIV placed in the right AC w/o complications, IVF hung per provider order. call dwyer placed within reach.
[2023-06-30 10:29] LABS: Basophils Absolute Auto 0.1 X10*3/uL (0.0-0.2); Basophils Percent Auto 0.2 % (0-2); Hematocrit 45.9 % (42.0-52.0); Hemoglobin 15.5 g/dl (14.0-18.0); Imm Gran Abs Auto 0.13 X10*3/uL (0.00-0.03); Imm Gran Pct Auto 0.6 % (0.0-0.4); Lymphocytes Percent Auto 4.7 % (20-40); MANUAL DIFF FLAG SCAN; Mean Corpuscular HGB Conc 33.8 g/dl (31.0-36.0); Mean Corpuscular Hemoglobin 31.6 pg (27.0-33.0); Mean Platelet Volume 9.6 fL (9.4-12.4); Monocytes Absolute Auto 2.7 X10*3/uL (0.1-1.2); Monocytes Percent Auto 12.2 % (2-11); Neutrophils Percent Auto 82.3 % (45-73); Platelet Count 179 X10*3/uL (160-400); Red Cell Distribution Width 12.4 % (11.0-16.0); SCAN SMEAR FLAG 1; White Blood Count 21.9 X10*3/uL (4.8-10.8)
[2023-06-30 10:31] LABS: Mean Corpuscular Volume 93.7 fL (80.0-98.0)
[2023-06-30 10:47] LABS: Lactic Acid 2.7 mmol/L (0.5-2.0)
[2023-06-30 10:49] LABS: Alanine Aminotransferase 81 U/L (0-40); Albumin Level 4.1 g/dL (3.5-5.0); Alkaline Phosphatase 84 U/L (39-117); Anion Gap 14 (12-20); Aspartate Amino Transferase 53 U/L (5-37); Bilirubin Direct 0.3 mg/dL (0.0-0.5); Bilirubin Total 0.8 mg/dL (0.0-1.0); Blood Urea Nitrogen 19 mg/dL (9-16); Calcium 9.7 mg/dL (8.4-10.2); Carbon Dioxide 28 mmol/L (22-29); Chloride 102 mmol/L (96-108); Creatinine Clr Calc Pharmacy 96.2; Estimated Glomerular Filt Rate > 60; Glucose Random 119 mg/dL (60-115); Lipase 15 U/L (8-78); Potassium 4.4 mmol/L (3.3-5.1); Sodium 140 mmol/L (135-145); Total Protein 7.2 g/dL (6.5-8.0)
[2023-06-30 10:54] LABS: B Type Natriuretic Peptide 82 pg/mL (<100)
[2023-06-30 10:55] LABS: Troponin-I High Sensitivity 8.4 ng/L (<3.5-35.0)
[2023-06-30] MEDS: cefTRIAXone sodium 1 GM in 0.9 % Sodium Chloride 50 ML IV (11:03)
--- NOTE | 2023-06-30 11:06 | PC.NURSE ---
tech's anahi 2nd set of cultures and sent to lab, abx administered per provider order.
[2023-06-30 11:09] LABS: Influenza A PCR NEGATIVE (Negative); Influenza B PCR NEGATIVE (Negative); Resp Syncy Virus RNA Qual PCR NEGATIVE (Negative); SARS COV2 PCR INHOUSE NEGATIVE (Negative)
--- NOTE | 2023-06-30 11:21 | PHA.MEDREC ---
Pharmacy Consult ? Medication Reconciliation Pharmacy has completed the medication reconciliation. Spoke to patient's pin pusher which called the location to confirm meds. Patient also had med list from 05/14/23 in room and was outdated.
--- NOTE | 2023-06-30 11:51 | PC.NURSE ---
IVF and medications completely infused and d/c'd.
[2023-06-30 12:26] LABS: Reflex Lactate? Lactic Acid Added
[2023-06-30] MEDS: iohexoL 350 MG/ML 100 ML INFUS..BTL 65 ML IV (15:00)
[2023-06-30 15:01] LABS: ~Lactic Acid-LAB USE ONLY 2.9 mmol/L (0.5-2.0)
[2023-06-30 15:12] LABS: SLIDE REVIEW VERIFIED
[2023-06-30 16:03] LABS: Reflex Lactate? 2 Y
--- NOTE | 2023-06-30 16:39 | PM.IMHP ---
History of Present Illness Date of Service: 06/30/23 Chief Complaint: Cough 67-year-old man presenting from a care home with shortness of breath and cough that started yesterday after taking some medication. Apparently he was brought to [facility] but discharged with no diagnosis or medications. He was sent back to the care home and he felt weak, lethargic and hot to the touch. He had a phlegmy cough. He is mostly full care. He denied chest pain, nausea, vomiting, diarrhea. Patient was not noted to be hypoxic at any time but has been on 2 L of nasal cannula in the ER. Chest CTA showed no evidence of pulmonary embolism, dependent posterior lung base consolidation consistent with atelectasis. His white blood cell count was elevated 21.9, no fever but noted tachycardia and tachypnea, elevated lactic acid of 2.9, negative flu, COVID and RSV. He was treated with normal saline, Rocephin. He will be admitted for further management and treatment of severe sepsis secondary to community-acquired pneumonia. Review of Systems Review of Systems: Denies any recent fever chills or decrease in appetite respiratory see HPI cardiovascular denies chest pain gastrointestinal denies any dysphagia abdominal pain nausea vomiting or diarrhea genitourinary denies any dysuria frequency or hematuria musculoskeletal denies any joint pain or swelling neuropsych denies any weakness or seizures all other systems reviewed are negative [facility] Medical History (Updated 06/30/23 @ 16:44 by Freda Bella NP) Aggressive behavior Alcohol abuse Anxiety Cognitive and neurobehavioral dysfunction following brain injury Depression Hernia HTN (hypertension) Hypertension Major depressive disorder, recurrent Seizure disorder Sinusitis Subdural hematoma TBI (traumatic brain injury) TIA (transient ischemic attack) Family History Other Family history unobtainable Surgical History H/O brain surgery H/O craniotomy H/O umbilical hernia repair History of cholecystectomy History of hip replacement S/P cholecystectomy Social History Household Members: Other Household Members Other:: [employer] Housing: Other Housing Other:: alf Do you presently have visiting nurse or other home services: Yes Alcohol intake: never Patient Tobacco Use Status: Never used Tobacco Smoked in Last 30 Days: No e-Cigarette/Vaping Use: Never Used Second Hand Smoke Exposure: No Use of substances other than those prescribed or required for medical reasons: No Advance Directives: Yes Advance Directives Information Provided: Yes Advance Directives on File: No Advance Directives Date on File: 05/27/19 service: No Current occupational status: disabled Sexual orientation: Straight/Heterosexual Meds Allergies Allergy/AdvReac Type Severity Reaction Status Date / Time fentanyl [FENTANYL] Allergy Intermediate unknown Verified 06/30/23 09:56 Active Medications: Current Medications Vancomycin HCl (Vancomycin/Ns) 2,000 mg in 500 mls @ 250 mls/hr IV ONCE ONE Stop: 06/30/23 18:29 Pharmacy Consult (Consult Rx Perform Med Rec) 1 each MISCELLANE ONCE PRN PRN Reason: Consult order Home Medications Medication Instructions Recorded Confirmed Last Taken Type dextran 70-hypromellose eye drops 1 drp ophthalmic (eye) Q2H PRN Dry 06/30/23 06/30/23 Unknown History in a dropperette (Artificial Tears Eyes (PF) drops in a dropperette) hydrocortisone 1 % topical cream 1 appl topical BID PRN itchy feet 06/30/23 06/30/23 Unknown History ondansetron HCl 4 mg tablet 4 mg PO Q6H PRN Nausea And Vomiting 06/30/23 06/30/23 Unknown History sennosides 8.6 mg tablet (Senna 17.2 mg PO BEDTIME PRN Constipation 06/30/23 06/30/23 Unknown History Lax) Physical Exam Vital Signs and Narrative: Vital Signs: Last Vital Signs Temp 98.5 F 06/30/23 14:38 Pulse 103 H 06/30/23 14:38 Resp 14 06/30/23 14:38 BP 106/69 06/30/23 14:38 Pulse Ox 96 06/30/23 14:38 O2 Del Method Room Air, Nasal C annula 06/30/23 14:38 O2 Flow Rate 2 06/30/23 14:38 BMI result Body Mass Index 29.8 Appearing in no acute distress head is normocephalic atraumatic eyes pupils are PERRLA sclera is anicteric mouth throat mucous membranes are intact and moist neck is supple no lymphadenopathy, no JVD noted lung sounds rhonchi throughout heart regular rate rhythm, clear S1, S2 positive bowel sounds, abdomen is soft, nontender neuro patient is alert x3, chronic weakness due to immobility Results Labs 06/30/23 10:21 06/30/23 10:21 Labs: Laboratory Results - last 24 hr 06/30/23 06/30/23 06/30/23 10:21 10:21 10:21 MCV 93.7 MCH 31.6 MCHC 33.8 RDW 12.4 Plt Count 179 MPV 9.6 Immature Gran % (Auto) 0.6 H Neut % (Auto) 82.3 H Lymph % (Auto) 4.7 L [place] % (Auto) 12.2 H Eos % (Auto) 0.0 Baso % (Auto) 0.2 Lymph # (Auto) 1.0 L [place] # (Auto) 2.7 H Eos # (Auto) 0.0 Baso # (Auto) 0.1 Abs Immat Gran (auto) 0.13 H Absolute Neuts (auto) 18.0 H Absolute Nucleated RBC 0.000 Nucleated RBC % (auto) 0.0 Smear Tech's Comments VERIFIED Anion Gap 14 Estim Creat Clear Calc 96.2 Estimated GFR > 60 Random Glucose 119 H Lactic Acid Lactic Acid F/U @ 2Hr Calcium 9.7 Total Bilirubin 0.8 Direct Bilirubin 0.3 AST 53 H ALT 81 H Alkaline Phosphatase 84 B-Natriuretic Peptide 82 Total Protein 7.2 Albumin 4.1 Lipase 15 Influenza Type A (PCR) Influenza Type B (PCR) RSV RNA Qual (PCR) SARS-CoV-2 RNA (RT-PCR) 06/30/23 06/30/23 06/30/23 10:21 10:22 13:59 MCV MCH MCHC RDW Plt Count MPV Immature Gran % (Auto) Neut % (Auto) Lymph % (Auto) [place] % (Auto) Eos % (Auto) Baso % (Auto) Lymph # (Auto) [place] # (Auto) Eos # (Auto) Baso # (Auto) Abs Immat Gran (auto) Absolute Neuts (auto) Absolute Nucleated RBC Nucleated RBC % (auto) Smear Tech's Comments Anion Gap Estim Creat Clear Calc Estimated GFR Random Glucose Lactic Acid 2.7 H* Lactic Acid F/U @ 2Hr 2.9 H* Calcium Total Bilirubin Direct Bilirubin AST ALT Alkaline Phosphatase B-Natriuretic Peptide Total Protein Albumin Lipase Influenza Type A (PCR) NEGATIVE Influenza Type B (PCR) NEGATIVE RSV RNA Qual (PCR) NEGATIVE SARS-CoV-2 RNA (RT-PCR) NEGATIVE Imaging Radiologist's Impressions: Impressions Chest X-Ray 06/30/23 11:15 IMPRESSION: Low lung volumes, bibasilar atelectasis, elevated right hemidiaphragm. No interval change. Chest CTA 06/30/23 15:04 IMPRESSION: No evidence for pulmonary embolism. Dependent posterior lung base consolidation most consistent with atelectasis. Irregular liver possibly hepatocellular disease/cirrhosis. VTE: Negative. Assessment and Plan (1) Pneumonia: Status: Acute Plan 67-year-old man presented from a care home with community-acquired pneumonia Severe sepsis secondary to community-acquired pneumonia versus aspiration pneumonia Leukocytosis, tachycardia, tachypnea, lactic acidosis Rhonchi throughout Will treat with Rocephin and azithromycin Continue supplemental oxygen as needed Oral suction as needed as patient has a lot of secretions Schedule DuoNebs, will hold off on steroids for now Speech therapy consultation letter possible aspiration pneumonia Mental health Continue home medications History of hypertension Episodes of hypotension likely secondary to infection sign will hold off on antihypertensive medications for now DVT prophylaxis with heparin 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 Time Spent With Patient Time: Total time managing care of this patient today ____ minutes. Quality Stroke Does the patient have a stroke diagnosis?: No VTE Prior VTE?: No VTE Risk Level:: Medical - moderate - high VTE Device Contraindication: Treatment Not Indicated VTE Drug Contraindication: N/A - Med Ordered
[2023-06-30] MEDS: Acetaminophen 325 MG TABLET 650 MG PO (17:23)
[2023-06-30] MEDS: vancomycin/NS 2,000 MG/500 ML PLAST..BAG 250 MG IV (17:46)
[2023-06-30 17:50] LABS: Appearance Urine Clear; Color Urine Yellow; Glucose Urine UA Negative (Negative); Leukocyte Esterase Urine Negative (Negative); Nitrite Urine Negative (Negative); Specific Gravity - Urine >= 1.030 (1.005-1.025); Urine Blood Negative (Negative); Urine Ketones Trace mg/dL (Negative); Urine Protein Trace mg/dL (Neg-Trace)
[2023-06-30] MEDS: Heparin Sodium,Porcine 5,000 UNIT/ML VIAL 5000 UNIT SUBCUT (18:43)
--- NOTE | 2023-06-30 18:45 | PC.NURSE ---
Per provider hold hs dose or ativan, zyprexa, and trazadone
[2023-06-30] MEDS: Albuterol/Iprat 2.5/0.5MG 3 ML AMPUL.NEB INHALE (19:05)
--- NOTE | 2023-06-30 19:44 | PC.NURSE ---
Assumed care of pt/ Pt awake and alert to presence of RN. Answering questions appropriately at this time. Pt with IV on R arm, Vanco running per orders. Pt with significant upper respiratory rhonchi, able to clear secretions, per MD may suction self, pt return demonstrated suctioning technique and ability to clear secretions. VSS at this time, no acute medical or behavioral cancers. Continuing plan of care.
[2023-06-30] MEDS: ALPRAZolam 0.5 MG TABLET PO (21:07)
[2023-06-30] MEDS: OLANZapine 2.5 MG TABLET PO (21:08)
[2023-06-30] MEDS: Ampicillin Sodium/Sulbactam Na 3 GM in 0.9 % Sodium Chloride 100 ML IV (21:49)
[2023-06-30] MEDS: Azithromycin 500 MG in 0.9 % Sodium Chloride 250 ML 125 MG IV (22:23)
[2023-06-30] MEDS: LORazepam 2 MG/ML VIAL 1 MG IVPUSH (23:50)
[2023-07-01] VITALS (8 sets, daily range): BP systolic 137–153; BP diastolic 75–81; PULSE 62–107; RESP 14–20; TEMP 36.1–37.1; O2SAT 95–101
[2023-07-01] MEDS: Ketorolac Tromethamine 15 MG/ML VIAL IVPUSH ×2 (00:25→06:33)
[2023-07-01] MEDS: OLANZapine 10 MG VIAL IM (02:17)
[2023-07-01] MEDS: Ampicillin Sodium/Sulbactam Na 3 GM in 0.9 % Sodium Chloride 100 ML IV ×4 (04:45→22:49)
[2023-07-01] MEDS: Heparin Sodium,Porcine 5,000 UNIT/ML VIAL 5000 UNIT SUBCUT ×2 (04:45→18:03)
[2023-07-01 06:26] LABS: Hematocrit 40.4 % (42.0-52.0); Hemoglobin 13.6 g/dl (14.0-18.0); Mean Corpuscular HGB Conc 33.7 g/dl (31.0-36.0); Mean Corpuscular Hemoglobin 31.7 pg (27.0-33.0); Mean Corpuscular Volume 94.2 fL (80.0-98.0); Platelet Count 128 X10*3/uL (160-400); Red Blood Count 4.29 X10*6/uL (4.60-5.80); Red Cell Distribution Width 12.8 % (11.0-16.0); White Blood Count 8.7 X10*3/uL (4.8-10.8)
[2023-07-01 06:37] LABS: Magnesium 1.8 mg/dL (1.6-2.6)
[2023-07-01 06:38] LABS: Anion Gap 14 (12-20); Blood Urea Nitrogen 21 mg/dL (9-16); Calcium 8.8 mg/dL (8.4-10.2); Carbon Dioxide 23 mmol/L (22-29); Chloride 106 mmol/L (96-108); Creatinine Clr Calc Pharmacy 112.1; Estimated Glomerular Filt Rate > 60; Glucose Random 108 mg/dL (60-115); Potassium 3.9 mmol/L (3.3-5.1); Sodium 139 mmol/L (135-145)
--- NOTE | 2023-07-01 06:43 | MHC.PIE ---
late entry p; 2332. pt unable to take any po med safely. all po med held. pt now c/o anxiety. i; dr covarrubias notified; new order iv ativan p; 0013. pt c/o pain 06/25 h/a. i; dr covarrubias notified; new order toladol iv now p; 0200. pt again c/o anxiety i; dr covarrubias notified; new order haldol im now p; 0630. pt c/o pain h/a 06/25 i; dr covarrubias notifed; toradol now e; will cont to monitor
[2023-07-01] MEDS: Albuterol/Iprat 2.5/0.5MG 3 ML AMPUL.NEB INHALE ×4 (08:17→20:03)
--- NOTE | 2023-07-01 08:17 | HO.PM.IMPN ---
Subjective Subjective Date of Service: 07/01/23 Review of Systems Follow-up pneumonia Still with gurgly cough Physical Exam Vital Signs: Vital Signs: Last Vital Signs Temp 98.3 F 07/01/23 07:57 Pulse 104 H 07/01/23 07:57 Resp 18 07/01/23 07:57 BP 143/75 H 07/01/23 07:57 Pulse Ox 95 07/01/23 07:57 O2 Del Method Nasal Cannula 07/01/23 07:57 O2 Flow Rate 2.0 07/01/23 07:57 BMI result Body Mass Index 31.0 Appearing in no acute distress lung sounds are clear to auscultation heart regular rate rhythm, clear S1, S2 positive bowel sounds, abdomen is soft, nontender neuro patient is alert x3, no focal deficits Objective Data Active Medications Acetaminophen (Acetaminophen 325 Mg Tablet) 650 mg PO Q6H PRN PRN Reason: Pain, Mild (Pain Scale 1-3) Last Admin: 06/30/23 17:23 Dose: 650 mg Documented By: URSULA Albuterol Sulfate (Albuterol Sulfate 90 Mcg 8 Gm Inhaler) 2 puff INHALE Q6H PRN PRN Reason: Wheezing Albuterol/Ipratropium (Albuterol/Iprat 2.5/0.5mg 3 Ml Ampul.Neb) 3 ml INHALE RQ4H WHILE AWAKE [facility] Last Admin: 07/01/23 08:17 Dose: 3 ml Documented By: URMILA Alprazolam (Alprazolam 0.25 Mg Tablet) 0.25 mg PO BID@0830,1430 [facility] Alprazolam (Alprazolam 0.5 Mg Tablet) 0.5 mg PO BEDTIME [facility] Last Admin: 06/30/23 21:07 Dose: 0.5 mg Documented By: FRENCH Amlodipine Besylate (Amlodipine Besylate 5 Mg Tablet) 5 mg PO DAILY [facility]; Protocol Bisacodyl (Bisacodyl 10 Mg Supp.Rect) 10 mg [place] DAILY PRN PRN Reason: Constipation Divalproex Sodium (Divalproex Sodium Sprinkles 125 Mg Cap.Spr) 125 mg PO DAILY@1200 TAZ Divalproex Sodium (Divalproex Sodium 250 Mg Tablet.Dr) 750 mg PO BEDTIME [facility] Last Admin: 06/30/23 21:28 Dose: Not Given Documented By: FRENCH Non-Admin Reason: unsafe for po Finasteride (Finasteride 5 Mg Tablet) 5 mg PO DAILY [facility] Fluticasone Propionate (Fluticasone Propionate Nasal 16 Gm [place]) 2 spray NOSTRIL-B DAILY PRN PRN Reason: nasal congestion Guaifenesin/Dextromethorphan (Guaifenesin Dm 100/10/5 Ml 5 Ml Syrup) 5 ml PO Q4H PRN PRN Reason: cough Heparin Sodium (Porcine) (Heparin Sodium,Porcine 5,000 Unit/Ml Vial) 5,000 unit SUBCUT Q12H [facility] Last Admin: 07/01/23 04:45 Dose: 5,000 unit Documented By: FRENCH Azithromycin 500 mg/ Sodium (Chloride) 250 mls @ 125 mls/hr IV Q24H TAZ Ampicillin Sodium/Sulbactam (Sodium 3 gm/ Sodium Chloride) 100 mls @ 200 mls/hr IV Q6H [facility] Last Infusion: 07/01/23 05:49 Dose: 0 mls/hr Documented By: FRENCH Latanoprost (Latanoprost 0.005 % Ophth On 2.5 Ml Drops) 1 drop EYE-BOTH BEDTIME [facility] Last Admin: 06/30/23 21:08 Dose: Not Given Documented By: FRENCH Non-Admin Reason: Med Not Available Magnesium Hydroxide (Milk Of Magnesia 30 Ml Oral.Susp) 30 ml PO BID PRN PRN Reason: constipation, stomach/GI upset Multivitamins/Vitamin C (Multivitamin Tablet) 1 tab PO DAILY [facility] Naltrexone HCl (Naltrexone Hcl 50 Mg Tablet) 50 mg PO DAILY [facility] Nortriptyline HCl (Nortriptyline Hcl 25 Mg Capsule) 75 mg PO BEDTIME [facility] Last Admin: 06/30/23 21:28 Dose: Not Given Documented By: FRENCH Non-Admin Reason: unsafe for po Olanzapine (Olanzapine 2.5 Mg Tablet) 2.5 mg PO BEDTIME [facility] Last Admin: 06/30/23 21:08 Dose: 2.5 mg Documented By: FRENCH Ondansetron HCl (Ondansetron Hcl 4 Mg/2 Ml Vial) 4 mg IVPUSH Q8H PRN PRN Reason: Nausea and Vomiting Pharmacy Consult (Consult Rx Perform Med Rec) 1 each MISCELLANE ONCE PRN PRN Reason: Consult order Polyethylene Glycol (Polyethylene Glycol 3350 17 Gm Powd.Pack) 17 gm PO DAILY PRN PRN Reason: Constipation Propranolol HCl (Propranolol Hcl 20 Mg Tablet) 20 mg PO TID [facility]; Protocol Last Admin: 06/30/23 21:26 Dose: Not Given Documented By: FRENCH Non-Admin Reason: unsafe for po Senna (Sennosides 8.6 Mg Tablet) 17.2 mg PO BEDTIME PRN PRN Reason: Constipation Trazodone HCl (Trazodone Hcl 100 Mg Tablet) 200 mg PO BEDTIME TAZ Last Admin: 06/30/23 21:28 Dose: Not Given Documented By: FRENCH Non-Admin Reason: Administered by Alternate Route Vitamin D (Cholecalciferol (Vitamin D3) 10 Mcg Tablet) 10 mcg PO DAILY [facility] Vortioxetine (Vortioxetine Hydrobromide 10 Mg Tablet) 10 mg PO DAILY [facility] Labs 07/01/23 06:06 07/01/23 06:06 Labs: Laboratory Results - last 24 hr 06/30/23 06/30/23 06/30/23 10:21 10:21 10:21 MCV 93.7 MCH 31.6 MCHC 33.8 RDW 12.4 Plt Count 179 MPV 9.6 Immature Gran % (Auto) 0.6 H Neut % (Auto) 82.3 H Lymph % (Auto) 4.[address] [facility] % (Auto) 12.2 H Eos % (Auto) 0.0 Baso % (Auto) 0.2 Lymph # (Auto) 1.[address] [facility] # (Auto) 2.7 H Eos # (Auto) 0.0 Baso # (Auto) 0.1 Abs Immat Gran (auto) 0.13 H Absolute Neuts (auto) 18.0 H Absolute Nucleated RBC 0.000 Nucleated RBC % (auto) 0.0 Smear Tech's Comments VERIFIED Anion Gap 14 Estim Creat Clear Calc 96.2 Estimated GFR > 60 Random Glucose 119 H Lactic Acid Lactic Acid F/U @ 2Hr Lactic Acid F/U @ 4Hr Calcium 9.7 Magnesium Total Bilirubin 0.8 Direct Bilirubin 0.3 AST 53 H ALT 81 H Alkaline Phosphatase 84 B-Natriuretic Peptide 82 Total Protein 7.2 Albumin 4.1 Lipase 15 Urine Color Urine Appearance Urine pH Ur Specific [place] Urine Protein Urine Glucose (UA) Urine Ketones Urine Blood Urine Nitrite Ur Leukocyte Esterase Influenza Type A (PCR) Influenza Type B (PCR) RSV RNA Qual (PCR) SARS-CoV-2 RNA (RT-PCR) 06/30/23 06/30/23 06/30/23 10:21 10:22 13:59 MCV MCH MCHC RDW Plt Count MPV Immature Gran % (Auto) Neut % (Auto) Lymph % (Auto) [facility] % (Auto) Eos % (Auto) Baso % (Auto) Lymph # (Auto) [facility] # (Auto) Eos # (Auto) Baso # (Auto) Abs Immat Gran (auto) Absolute Neuts (auto) Absolute Nucleated RBC Nucleated RBC % (auto) Smear Tech's Comments Anion Gap Estim Creat Clear Calc Estimated GFR Random Glucose Lactic Acid 2.7 H* Lactic Acid F/U @ 2Hr 2.9 H* Lactic Acid F/U @ 4Hr Calcium Magnesium Total Bilirubin Direct Bilirubin AST ALT Alkaline Phosphatase B-Natriuretic Peptide Total Protein Albumin Lipase Urine Color Urine Appearance Urine pH Ur Specific [place] Urine Protein Urine Glucose (UA) Urine Ketones Urine Blood Urine Nitrite Ur Leukocyte Esterase Influenza Type A (PCR) NEGATIVE Influenza Type B (PCR) NEGATIVE RSV RNA Qual (PCR) NEGATIVE SARS-CoV-2 RNA (RT-PCR) NEGATIVE 06/30/23 06/30/23 07/01/23 17:36 17:36 06:06 MCV 94.2 MCH 31.7 MCHC 33.7 RDW 12.8 Plt Count 128 L D MPV 10.0 Immature Gran % (Auto) Neut % (Auto) Lymph % (Auto) [facility] % (Auto) Eos % (Auto) Baso % (Auto) Lymph # (Auto) [facility] # (Auto) Eos # (Auto) Baso # (Auto) Abs Immat Gran (auto) Absolute Neuts (auto) Absolute Nucleated RBC 0.000 Nucleated RBC % (auto) 0.0 Smear Tech's Comments Anion Gap Estim Creat Clear Calc Estimated GFR Random Glucose Lactic Acid Lactic Acid F/U @ 2Hr Lactic Acid F/U @ 4Hr 2.0 Calcium Magnesium Total Bilirubin Direct Bilirubin AST ALT Alkaline Phosphatase B-Natriuretic Peptide Total Protein Albumin Lipase Urine Color Yellow Urine Appearance Clear Urine pH 8.0 Ur Specific [place] >= 1.030 H Urine Protein Trace Urine Glucose (UA) Negative Urine Ketones Trace Urine Blood Negative Urine Nitrite Negative Ur Leukocyte Esterase Negative Influenza Type A (PCR) Influenza Type B (PCR) RSV RNA Qual (PCR) SARS-CoV-2 RNA (RT-PCR) 07/01/23 07/01/23 06:06 06:06 MCV MCH MCHC RDW Plt Count MPV Immature Gran % (Auto) Neut % (Auto) Lymph % (Auto) [facility] % (Auto) Eos % (Auto) Baso % (Auto) Lymph # (Auto) [facility] # (Auto) Eos # (Auto) Baso # (Auto) Abs Immat Gran (auto) Absolute Neuts (auto) Absolute Nucleated RBC Nucleated RBC % (auto) Smear Tech's Comments Anion Gap 14 Estim Creat Clear Calc 112.1 Estimated GFR > 60 Random Glucose 108 Lactic Acid Lactic Acid F/U @ 2Hr Lactic Acid F/U @ 4Hr Calcium 8.8 D Magnesium 1.8 Total Bilirubin Direct Bilirubin AST ALT Alkaline Phosphatase B-Natriuretic Peptide Total Protein Albumin Lipase Urine Color Urine Appearance Urine pH Ur Specific [place] Urine Protein Urine Glucose (UA) Urine Ketones Urine Blood Urine Nitrite Ur Leukocyte Esterase Influenza Type A (PCR) Influenza Type B (PCR) RSV RNA Qual (PCR) SARS-CoV-2 RNA (RT-PCR) Assessment and Plan (1) Pneumonia: Status: Acute Plan 67-year-old man [facility] with community-acquired pneumonia Severe sepsis secondary to community-acquired pneumonia versus aspiration pneumonia Sepsis has resolved Initially with Leukocytosis, tachycardia, tachypnea, lactic acidosis Rhonchi throughout Continue Rocephin and azithromycin Continue supplemental oxygen as needed Oral suction as needed as patient has a lot of secretions as per respiratory team Schedule Jimena, will hold off on steroids for now Speech therapy consultation letter possible aspiration pneumonia Mental health Continue home medications History of hypertension Episodes of hypotension initially Blood pressure stable at this time, can restart antihypertensives DVT prophylaxis with heparin Attending Dr. 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 Time Spent With Patient Time: Total time managing care of this patient today ____ minutes. Quality Stroke Does the patient have a stroke diagnosis?: No VTE Prior VTE?: No VTE Risk Level:: Medical - moderate - high VTE Device Contraindication: Treatment Not Indicated VTE Drug Contraindication: N/A - Med Ordered
--- NOTE | 2023-07-01 08:57 | MHC.CLN ---
NUTRITION CONSULT FOR SKIN INTEGRITY. PATIENT WITH REDNESS TO BUTTOCKS. CURRENTLY NPO PENDING AUTOMATED EQUIPMENT ENGINEER TECHNICIAN EVAL. MONITOR FOR DIET ADVANCEMENT.
--- NOTE | 2023-07-01 14:30 | MHC.SLORD ---
Speech Language Pathology Order Status: SQUEAK R[employer]LE [employer] LEAK REPAIRER team is familiar w/ patient; seen from 10/2022 to 01/2023 for dysphagia tx inclusive of MBS 11/2022. Patient was recommended mechanical soft solids (NDD2) and thin liquids with several cues and aspiration precautions; see MBSImP note 11/17/2022. Patient was then upgraded to regular solids w/ dysphagia tx and reamained on this diet until d/c in May 2023. D/t current patient presentation (audible rhonchi, supplemental O2, frequent suctioning) and consultation w/ RT, recommendation is for S[employer]AK REPAIRER bedside evaluation to be held until tomorrow. Patient reports to this SQUEAK RATTLE AND LEAK REPAIRER that he was given pills at nursing home while in supine position in bed the other night w/o altering positioning of bed or person. Patient reports that he took tylonol w/ water, had difficulty swallowing, and presented w/ cough. Cup of thin water w/ straw in room (out of reach) was removed by SQUEAK RATTLE AND LEAK REPAIRER.
--- NOTE | 2023-07-01 15:39 | MHC.CM.PN ---
pt from custodial contact lens technician is patricia [phone] who will be faxing documents that need to filledout fpr [place] pt will need amb transport and custodial will accept pt back on weekends
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
--- NOTE | 2023-07-01 19:19 | PC.NURSE ---
Tube feeds started at 1300 at 20ml/hr. At 1840 feed residual was 320ml, residual was put back, irrigated and G tube feeds were held per order.
[2023-07-01] MEDS: LORazepam 2 MG/ML VIAL 0.25 MG IVPUSH (20:48)
[2023-07-01] MEDS: Valproic Acid (as Sodium Salt) 250 MG in Dextrose 5 % 50 ML 52.5 MG IV (21:24)
--- NOTE | 2023-07-01 22:07 | MHC.PIE ---
p; pt c/o pain 8/10 a/h. pt asking for Tylenol. note; pt npo, pt unable/unsafe to swallow meds at this time i; dr covarrubias notified. new order iv Tylenol now e; will cont to monitor
[2023-07-01] MEDS: Acetaminophen 1,000 MG/100 ML PIGGYBACK 400 MG IV (22:33)
[2023-07-01] MEDS: Azithromycin 500 MG in 0.9 % Sodium Chloride 250 ML 125 MG IV (23:31)
[2023-07-02] VITALS (10 sets, daily range): BP systolic 118–164; BP diastolic 67–86; PULSE 63–92; RESP 16–20; TEMP 35.9–36.2; O2SAT 93–96
[2023-07-02] MEDS: LORazepam 2 MG/ML VIAL 0.25 MG IVPUSH (01:43)
--- NOTE | 2023-07-02 01:44 | MHC.PIE ---
p; pt c/o anxiety, asking for anti anxiety meds - note; pt thrown call dwyer, tv remote suctioning on floor, took off o2 nc, when trying to placed o2 back on pt, pt refused, became agitated and try to pull the nc apart i; dr covarrubias notified; give prn ativan early dose now e; will cont to monitor
[2023-07-02] MEDS: Valproic Acid (as Sodium Salt) 250 MG in Dextrose 5 % 50 ML 52.5 MG IV (03:49)
[2023-07-02] MEDS: Heparin Sodium,Porcine 5,000 UNIT/ML VIAL 5000 UNIT SUBCUT (05:01)
[2023-07-02] MEDS: Ampicillin Sodium/Sulbactam Na 3 GM in 0.9 % Sodium Chloride 100 ML IV ×4 (05:01→22:20)
--- NOTE | 2023-07-02 06:05 | MHC.PIE ---
p; blood in hendricks bag noted i; dr covarrubias notified e; will cont to monitor
[2023-07-02 06:59] LABS: Hematocrit 38.6 % (42.0-52.0); Mean Corpuscular HGB Conc 33.7 g/dl (31.0-36.0); Mean Corpuscular Hemoglobin 32.3 pg (27.0-33.0); Mean Platelet Volume 10.3 fL (9.4-12.4); Platelet Count 109 X10*3/uL (160-400); Red Blood Count 4.02 X10*6/uL (4.60-5.80); Red Cell Distribution Width 12.6 % (11.0-16.0); White Blood Count 4.7 X10*3/uL (4.8-10.8)
[2023-07-02 07:09] LABS: Anion Gap 13 (12-20); Blood Urea Nitrogen 25 mg/dL (9-16); Calcium 9.2 mg/dL (8.4-10.2); Carbon Dioxide 28 mmol/L (22-29); Chloride 106 mmol/L (96-108); Creatinine Clr Calc Pharmacy 119.3; Estimated Glomerular Filt Rate > 60; Glucose Random 84 mg/dL (60-115); Potassium 3.8 mmol/L (3.3-5.1); Sodium 143 mmol/L (135-145)
[2023-07-02 07:54] LABS: Band Neutrophils Percent 20 % (3-5); Eosinophils Absolute Manual 0.1 X10*3/uL (0.0-0.4); Eosinophils Percent Manual 2 % (0-4); Lymphocytes Absolute Manual 1.2 X10*3/uL (1.2-4.9); Lymphocytes Percent Manual 26 % (20-40); Metamyelocytes Absolute 0.1 X10*3/uL; Metamyelocytes Percent 2 %; Monocytes Absolute Manual 0.4 X10*3/uL (0.1-1.2); Monocytes Percent Manual 8 % (2-11); Myelocytes Percent 1 %; Neutrophils Absolute Manual 2.9 X10*3/uL (2.0-8.3); Neutrophils Percent Manual 41 % (45-73)
[2023-07-02 07:55] LABS: Platelet Estimate DECREASED (NORMAL); Platelet Morphology Comment NORMAL; RBC Morphology NORMAL
[2023-07-02] MEDS: Albuterol/Iprat 2.5/0.5MG 3 ML AMPUL.NEB INHALE ×4 (08:01→19:34)
[2023-07-02] MEDS: Propranolol HCL 20 MG TABLET PO ×3 (10:31→20:14)
[2023-07-02] MEDS: Cholecalciferol (Vitamin D3) 10 MCG TABLET PO (10:31)
[2023-07-02] MEDS: amLODIPine Besylate 5 MG TABLET PO (10:32)
[2023-07-02] MEDS: Vortioxetine Hydrobromide 10 MG TABLET PO (10:32)
[2023-07-02] MEDS: ALPRAZolam 0.25 MG TABLET PO ×2 (10:32→14:41)
[2023-07-02] MEDS: Finasteride 5 MG TABLET PO (10:32)
[2023-07-02] MEDS: Naltrexone HCl 50 MG TABLET PO (10:33)
[2023-07-02] MEDS: Multivitamin TABLET 1 TAB PO (10:33)
--- NOTE | 2023-07-02 11:38 | MHC.SL.SWA ---
Speech Pathologist Impression: Risk of Aspiration Due to: History of Pneumonia Dysphasia Diet Status: Liquid Consistency and Strategies for Safe Swallow: Liquid Intake Recommendation: Thin Liquid Intake Strategies: Small Sips No Straws Solid Food Consistency: Dietary Recommendations: Grnd/Mech Altered (NDD2) Additional Modifications to Solid Foods: Provide upper airway suctioning before meals. Add sauces and gravies and blend well. Patient is able to feed self, but due to history of impulsivity, current respiratory status, would benefit from full supervision during meals at this time. Avoid mixed textures. Cue patient to alternate bites of food with small cup sips of water. No straws. Discontinue if patient is having difficulty controlling cough while eating, or evidences clinical signs of aspiration (coughing on swallow, marked increase in upper airway noise, sustained drop in O2 sats). Do not attempt is patient is lethargic, not engaged in meal. On pill administration, follow pill in puree with sips of liquid. Oral Medication Intake: Whole with Puree Please contact the pharmacy regarding appropriate crushable or liquid drug formulations that are available whenever modified delivery is recommended. Compensatory Strategies and Precautions to be Taken for Safe Swallow: Sitting Upright (90 deg) No Straw Liquids from Cup Small Bites and Sips Alternate Liquids/Solids Rate of Ingestion Change Oral Check Supervision While Eating and Drinking for Safe Swallow: Total Supervision (1:1) Foods to Avoid: Mixed textures (e.g. solids in soup, cereal with milk), tough, difficult to chew solids, dry, crunchy textures. Swallowing Recommended Treatments: Compens. Strategy Educat. Recommendation for Speech: Inpatient Speech Therapy Comment: Patient presents with compromised respiratory system due to heavy upper airway congestion, and has history of a mild-moderate oropharyngeal dysphagia, which was observed again today on assessment. Recommend START diet of Ground/Mechanical Altered with THIN liquids, Pills whole in puree (per patient request) followed by sips of liquid. Recommend providing upper airway suctioning before meals. Patient is able to feed self, but due to history of impulsivity, current respiratory status, would benefit from full supervision during meals at this time. Avoid mixed textures. Cue patient to alternate bites of food with small cup sips of water. No straws. Discontinue if patient is having difficulty controlling cough while eating, or evidences clinical signs of aspiration (coughing on swallow, marked increase in upper airway noise, sustained drop in O2 sats). Do not attempt is patient is lethargic, not engaged in meal. MD, RD notified of diet recommendations, RN in person. STOCKHOLDER will continue to follow, assess for toleration, re-assess for advancement of diet as warranted. Frequency/Duration: M-F while inpatient. Date Range for Service Req: Timeline to reassess: Cdl B Driver Clinican/Clinical Fellow: No Supervisory Statement: I have reviewed and agree with the student/clinical fellow's documentation: N/A Speech Language Pathologist: Sarah Cotter M.A., [facility]
--- NOTE | 2023-07-02 12:36 | HO.PM.IMPN ---
Subjective Subjective Date of Service: 07/02/23 Interval History: seen and examined this morning follow up for pneumonia feels sick cough with lots of secretions denies fever or chills. no sob Review of Systems Review of Systems: Yes all other systems are reviewed and are negative Constitutional Constitutional: Denies chills and Denies fever(s) Cardiovascular Cardiovascular: Denies chest pain, Denies palpitations and Denies dyspnea Respiratory Respiratory: Reports cough and Denies dyspnea Gastrointestinal Gastrointestinal: Denies abdominal pain Endocrine Endocrine: Denies palpitations Physical Exam Vital Signs: Vital Signs: Last Vital Signs Temp 96.8 F 07/02/23 07:36 Pulse 82 07/02/23 11:34 Resp 20 07/02/23 11:34 BP 158/86 H 07/02/23 07:36 Pulse Ox 95 07/02/23 07:36 O2 Del Method Room Air 07/02/23 08:00 O2 Flow Rate 2 07/02/23 03:37 BMI result Body Mass Index 31.0 Const: General: cooperative, no acute distress, alert and awake Nutritional Appearance: overweight Orientation/consciousness: patient oriented x3 Resp: Other: course breath sounds, rhonchi b/l Effort & Inspection: normal respiratory effort and able to speak in complete sentences Cardio: Rate: regular rate Heart sounds: S1 normal heart sound present and S2 normal heart sound present GI: Inspection: No distended Palpation (GI): Soft to palpation and nontender Neuro: Other: grossly nonfocal General: patient oriented x3 Extrem: General: Yes no pedal edema Objective Data Active Medications Acetaminophen (Acetaminophen 325 Mg Tablet) 650 mg PO Q6H PRN PRN Reason: Pain, Mild (Pain Scale 1-3) Last Admin: 06/30/23 17:23 Dose: 650 mg Documented By: URSULA Albuterol Sulfate (Albuterol Sulfate 90 Mcg 8 Gm Inhaler) 2 puff INHALE Q6H PRN PRN Reason: Wheezing Albuterol/Ipratropium (Albuterol/Iprat 2.5/0.5mg 3 Ml Ampul.Neb) 3 ml INHALE RQ4H WHILE AWAKE [facility] Last Admin: 07/02/23 11:31 Dose: 3 ml Documented By: MUKUND Alprazolam (Alprazolam 0.25 Mg Tablet) 0.25 mg PO BID@0830,1430 [facility] Last Admin: 07/02/23 10:32 Dose: 0.25 mg Documented By: KAREN Comments: diet approved by Alprazolam (Alprazolam 0.5 Mg Tablet) 0.5 mg PO BEDTIME [facility] Last Admin: 06/30/23 21:07 Dose: 0.5 mg Documented By: FRENCH Amlodipine Besylate (Amlodipine Besylate 5 Mg Tablet) 5 mg PO DAILY [facility]; Protocol Last Admin: 07/02/23 10:32 Dose: 5 mg Documented By: KAREN Comments: diet approved by Bisacodyl (Bisacodyl 10 Mg Supp.Rect) 10 mg [place] DAILY PRN PRN Reason: Constipation Divalproex Sodium (Divalproex Sodium 250 Mg Tablet.) 750 mg PO BEDTIME [facility] Last Admin: 06/30/23 21:28 Dose: Not Given Documented By: FRENCH Non-Admin Reason: unsafe for po Divalproex Sodium (Divalproex Sodium Sprinkles 125 Mg Cap.) 125 mg PO DAILY@1200 [facility] Finasteride (Finasteride 5 Mg Tablet) 5 mg PO DAILY [facility] Last Admin: 07/02/23 10:32 Dose: 5 mg Documented By: KAREN Comments: diet approved by Fluticasone Propionate (Fluticasone Propionate Nasal 16 Gm [place]) 2 spray NOSTRIL-B DAILY PRN PRN Reason: nasal congestion Guaifenesin/Dextromethorphan (Guaifenesin Dm 100/10/5 Ml 5 Ml Syrup) 5 ml PO Q4H PRN PRN Reason: cough Heparin Sodium (Porcine) (Heparin Sodium,Porcine 5,000 Unit/Ml Vial) 5,000 unit SUBCUT Q12H [facility] Last Admin: 07/02/23 05:01 Dose: 5,000 unit Documented By: FRENCH Azithromycin 500 mg/ Sodium (Chloride) 250 mls @ 125 mls/hr IV Q24H [facility] Last Infusion: 07/02/23 01:44 Dose: 0 mls/hr Documented By: FRENCH Ampicillin Sodium/Sulbactam (Sodium 3 gm/ Sodium Chloride) 100 mls @ 200 mls/hr IV Q6H [facility] Last Infusion: 07/02/23 11:10 Dose: 0 mls/hr Documented By: KAREN Latanoprost (Latanoprost 0.005 % Ophth No 2.5 Ml Drops) 1 drop EYE-BOTH BEDTIME [facility] Last Admin: 07/01/23 20:51 Dose: Not Given Documented By: FRENCH Non-Admin Reason: NPO Magnesium Hydroxide (Milk Of Magnesia 30 Ml Oral.Susp) 30 ml PO BID PRN PRN Reason: constipation, stomach/GI upset Multivitamins/Vitamin C (Multivitamin Tablet) 1 tab PO DAILY [facility] Last Admin: 07/02/23 10:33 Dose: 1 tab Documented By: KAREN Comments: diet approved by Naltrexone HCl (Naltrexone Hcl 50 Mg Tablet) 50 mg PO DAILY [facility] Last Admin: 07/02/23 10:33 Dose: 50 mg Documented By: KAREN Comments: diet approved by Nortriptyline HCl (Nortriptyline Hcl 25 Mg Capsule) 75 mg PO BEDTIME [facility] Last Admin: 07/01/23 20:51 Dose: Not Given Documented By: FRENCH Non-Admin Reason: NPO Olanzapine (Olanzapine 2.5 Mg Tablet) 2.5 mg PO BEDTIME [facility] Last Admin: 06/30/23 21:08 Dose: 2.5 mg Documented By: FRENCH Ondansetron HCl (Ondansetron Hcl 4 Mg/2 Ml Vial) 4 mg IVPUSH Q8H PRN PRN Reason: Nausea and Vomiting Pharmacy Consult (Consult Rx Perform Med Rec) 1 each MISCELLANE ONCE PRN PRN Reason: Consult order Polyethylene Glycol (Polyethylene Glycol 3350 17 Gm Powd.Pack) 17 gm PO DAILY PRN PRN Reason: Constipation Propranolol HCl (Propranolol Hcl 20 Mg Tablet) 20 mg PO TID [facility]; Protocol Last Admin: 07/02/23 10:31 Dose: 20 mg Documented By: KAREN Comments: diet approved by Senna (Sennosides 8.6 Mg Tablet) 17.2 mg PO BEDTIME PRN PRN Reason: Constipation Trazodone HCl (Trazodone Hcl 100 Mg Tablet) 200 mg PO BEDTIME [facility] Last Admin: 07/01/23 20:51 Dose: Not Given Documented By: FRENCH Non-Admin Reason: NPO Vitamin D (Cholecalciferol (Vitamin D3) 10 Mcg Tablet) 10 mcg PO DAILY [facility] Last Admin: 07/02/23 10:31 Dose: 10 mcg Documented By: KAREN Comments: diet approved by Vortioxetine (Vortioxetine Hydrobromide 10 Mg Tablet) 10 mg PO DAILY [facility] Last Admin: 07/02/23 10:32 Dose: 10 mg Documented By: KAREN Comments: diet approved by Labs 07/02/23 06:20 07/02/23 06:20 Labs: Laboratory Results - last 24 hr 07/02/23 07/02/23 06:20 06:20 MCV 96.0 MCH 32.3 MCHC 33.7 RDW 12.6 Plt Count 109 L MPV 10.3 Immature Gran % (Auto) Cancelled Neut % (Auto) Cancelled Lymph % (Auto) Cancelled [place] % (Auto) Cancelled Eos % (Auto) Cancelled Baso % (Auto) Cancelled Lymph # (Auto) Cancelled [place] # (Auto) Cancelled Eos # (Auto) Cancelled Baso # (Auto) Cancelled Abs Immat Gran (auto) Cancelled Absolute Neuts (auto) Cancelled Absolute Nucleated RBC 0.000 Nucleated RBC % (auto) 0.0 Neutrophils % (Manual) 41 L Band Neutrophils % 20 H Lymphocytes % (Manual) 26 Monocytes % (Manual) 8 Eosinophils % (Manual) 2 Metamyelocytes % 2 Myelocytes % 1 Abs Neuts (Manual) 2.9 Lymphocytes # (Manual) 1.2 Monocytes # (Manual) 0.4 Eosinophils # (Manual) 0.1 Metamyelocytes # 0.1 Platelet Estimate DECREASED Plt Morphology Comment NORMAL RBC Morphology NORMAL Anion Gap 13 Estim Creat Clear Calc 119.3 Estimated GFR > 60 Random Glucose 84 Calcium 9.2 Microbiology Microbiology Results: Microbiology 06/30/23 10:21 Blood Culture - Preliminary Blood - Venous No growth after 48 hours. 06/30/23 10:59 Blood Culture - Preliminary Blood - Venous No growth after 24 hours. Assessment and Plan (1) Pneumonia: Status: Acute Plan This is a 67-year-old man [facility] with community-acquired pneumonia Severe sepsis secondary to community-acquired pneumonia versus aspiration pneumonia Sepsis has resolved- Initially with Leukocytosis, tachycardia, tachypnea, lactic acidosis Rhonchi throughout Continue unasyn/azithromycin currently on room air Oral suction as needed as patient has a lot of secretions as per respiratory team Schedule DuoNebs, will hold off on steroids for now seen by speech, rec to start NDD2 diet with suctioning prior to meals and close supervision/aspiration precautions blood cultures negative hematuria, mild possibly due to hendricks placement UA negative for infection hold heparin if persistent will start CBI and consult urology follow CBC thrombocytopenia platelets trending down follow CBC urinary retention hendricks placed consider flomax Mood Continue home medications History of hypertension Episodes of hypotension initially Blood pressure stable at this time, can restart antihypertensives DVT prophylaxis with SCDs, heparin on hold for hematuria Attending Dr. Grider Full code Continue hospitalization for treatment of severe sepsis secondary to pneumonia requiring IV antibiotics with close monitoring of respiratory status Time Spent With Patient Time: Total time managing care of this patient today ____ minutes. Quality Stroke Does the patient have a stroke diagnosis?: No VTE Prior VTE?: No VTE Risk Level:: Medical - moderate - high VTE Device Contraindication: Treatment Not Indicated VTE Drug Contraindication: N/A - Med Ordered
[2023-07-02] MEDS: Divalproex Sodium Sprinkles 125 MG CAP.DR.SPR PO (13:05)
[2023-07-02] MEDS: Acetaminophen 325 MG TABLET 650 MG PO (18:41)
[2023-07-02] MEDS: polyethylene glycoL 3350 17 GM POWD.PACK PO (18:42)
[2023-07-02] MEDS: Sennosides 8.6 MG TABLET 17.2 MG PO (20:13)
[2023-07-02] MEDS: Divalproex Sodium 250 MG TABLET.DR 750 MG PO (20:13)
[2023-07-02] MEDS: ALPRAZolam 0.5 MG TABLET PO (20:14)
[2023-07-02] MEDS: guaiFENesin DM 100/10/5 ML 5 ML SYRUP PO (20:14)
[2023-07-02] MEDS: Nortriptyline HCl 25 MG CAPSULE 75 MG PO (20:14)
[2023-07-02] MEDS: traZODone HCL 100 MG TABLET 200 MG PO (20:14)
[2023-07-02] MEDS: OLANZapine 2.5 MG TABLET PO (20:15)
[2023-07-02] MEDS: Latanoprost 0.005 % Ophth Sol 2.5 ML DROPS 1 DROP EYE-BOTH (20:47)
[2023-07-02] MEDS: Azithromycin 500 MG in 0.9 % Sodium Chloride 250 ML 125 MG IV (22:26)
[2023-07-03] MEDS: guaiFENesin DM 100/10/5 ML 5 ML SYRUP PO (02:54)
[2023-07-03] MEDS: Ampicillin Sodium/Sulbactam Na 3 GM in 0.9 % Sodium Chloride 100 ML IV ×4 (04:44→22:01)
[2023-07-03 06:17] LABS: Hematocrit 38.5 % (42.0-52.0); Hemoglobin 13.4 g/dl (14.0-18.0); Mean Corpuscular HGB Conc 34.8 g/dl (31.0-36.0); Mean Corpuscular Hemoglobin 32.6 pg (27.0-33.0); Mean Corpuscular Volume 93.7 fL (80.0-98.0); Mean Platelet Volume 10.3 fL (9.4-12.4); Platelet Count 136 X10*3/uL (160-400); Red Blood Count 4.11 X10*6/uL (4.60-5.80); Red Cell Distribution Width 12.2 % (11.0-16.0); White Blood Count 4.8 X10*3/uL (4.8-10.8)
[2023-07-03 07:47] VITALS: BP 138/76; PULSE 79; RESP 18; TEMP 36.4; O2SAT 96
[2023-07-03] MEDS: Albuterol/Iprat 2.5/0.5MG 3 ML AMPUL.NEB INHALE ×3 (08:01→15:54)
[2023-07-03] MEDS: Multivitamin TABLET 1 TAB PO (08:37)
[2023-07-03] MEDS: Propranolol HCL 20 MG TABLET PO ×3 (08:37→21:34)
[2023-07-03] MEDS: Naltrexone HCl 50 MG TABLET PO (08:37)
[2023-07-03] MEDS: amLODIPine Besylate 5 MG TABLET PO (08:37)
[2023-07-03] MEDS: ALPRAZolam 0.25 MG TABLET PO ×2 (08:37→14:13)
[2023-07-03] MEDS: Finasteride 5 MG TABLET PO (08:37)
[2023-07-03] MEDS: Vortioxetine Hydrobromide 10 MG TABLET PO (08:37)
[2023-07-03] MEDS: Cholecalciferol (Vitamin D3) 10 MCG TABLET PO (08:37)
[2023-07-03 08:55] VITALS: PULSE 79; RESP 18
[2023-07-03] MEDS: guaiFENesin LA 600 MG TAB.ER.12H 1200 MG PO ×2 (10:30→21:34)
--- NOTE | 2023-07-03 11:09 | MHC.CM.PN ---
Per MD rounds patient is not ready for discharge. DP return to care home via BLS.
[2023-07-03] MEDS: Divalproex Sodium Sprinkles 125 MG CAP.DR.SPR PO (11:58)
[2023-07-03] MEDS: polyethylene glycoL 3350 17 GM POWD.PACK PO (11:58)
--- NOTE | 2023-07-03 13:16 | MHC.SL.SWA ---
Speech Pathologist Impression: Risk of aspiration, oropharyngeal dysphagia Risk of Aspiration Due to: History of Pneumonia Dysphasia Diet Status: No changes at this time Liquid Consistency and Strategies for Safe Swallow: Liquid Intake Recommendation: Thin Liquid Intake Strategies: Small Sips No Straws Double Swallow Solid Food Consistency: Dietary Recommendations: Grnd/Mech Altered (NDD2) Additional Modifications to Solid Foods: Provide upper airway suctioning before meals. Add sauces and gravies and blend well. Patient is able to feed self, but due to history of impulsivity, current respiratory status, would benefit from full supervision during meals at this time. Avoid mixed textures. Cue patient to alternate bites of food with small cup sips of water. No straws. Discontinue if patient is having difficulty controlling cough while eating, or evidences clinical signs of aspiration (coughing on swallow, marked increase in upper airway noise, sustained drop in O2 sats). Do not attempt is patient is lethargic, not engaged in meal. On pill administration, follow pill in puree with sips of liquid. Oral Medication Intake: Whole with Puree Please contact the pharmacy regarding appropriate crushable or liquid drug formulations that are available whenever modified delivery is recommended. Compensatory Strategies and Precautions to be Taken for Safe Swallow: Sitting Upright (90 deg) Double Swallow No Straw Small Bites and Sips Rate of Ingestion Change Avoid Specific Foods Supervision While Eating and Drinking for Safe Swallow: Total Supervision (1:1) Foods to Avoid: Mixed textures (e.g. solids in soup, cereal with milk), tough, difficult to chew solids, dry, crunchy textures. Swallowing Recommended Treatments: Compens. Strategy Educat. Recommendation for Speech: Inpatient Speech Therapy Comment: Patient presents with compromised respiratory system due to heavy upper airway congestion, and has history of a mild-moderate oropharyngeal dysphagia, which was observed again today on assessment. Recommend START diet of Ground/Mechanical Altered with THIN liquids, Pills whole in puree (per patient request) followed by sips of liquid. Recommend providing upper airway suctioning before meals. Patient is able to feed self, but due to history of impulsivity, current respiratory status, would benefit from full supervision during meals at this time. Avoid mixed textures. Cue patient to alternate bites of food with small cup sips of water. No straws. Discontinue if patient is having difficulty controlling cough while eating, or evidences clinical signs of aspiration (coughing on swallow, marked increase in upper airway noise, sustained drop in O2 sats). Do not attempt is patient is lethargic, not engaged in meal. MD, RD notified of diet recommendations, RN in person. DESK REPRESENTATIVE will continue to follow, assess for toleration, re-assess for advancement of diet as warranted. Frequency/Duration: M-F while inpatient. Date Range for Service Req: Timeline to reassess: Electric Locomotive Crane Operator Clinican/Clinical Fellow: No Supervisory Statement: I have reviewed and agree with the student/clinical fellow's documentation: N/A Speech Language Pathologist: Maddy Harris M.A., [facility]-DESK REPRESENTATIVE
--- NOTE | 2023-07-03 13:29 | P.PNIM_ITS ---
Subjective Subjective Date of Service: 07/03/23 Interval History: seen and examined this morning follow up for pneumonia still with thick secretions requiring frequent suctioning no sob Review of Systems Review of Systems: Yes all other systems are reviewed and are negative Constitutional Constitutional: Denies chills and Denies fever(s) Cardiovascular Cardiovascular: Denies chest pain and Denies dyspnea Respiratory Respiratory: Denies dyspnea Gastrointestinal Gastrointestinal: Denies abdominal pain Physical Exam Vital Signs: Vital Signs: Last Vital Signs Temp 97.6 F 07/03/23 07:47 Pulse 79 07/03/23 08:55 Resp 18 07/03/23 08:55 BP 138/76 07/03/23 07:47 Pulse Ox 96 07/03/23 07:47 O2 Del Method Room Air 07/03/23 07:47 O2 Flow Rate 2 07/02/23 03:37 BMI result Body Mass Index 31.0 Const: General: cooperative, no acute distress, alert and awake Nutritional Appearance: overweight Orientation/consciousness: patient oriented x3 Resp: Other: course breath sounds, rhonchi b/l Effort & Inspection: normal respiratory effort and able to speak in complete sentences Cardio: Rate: regular rate Heart sounds: S1 normal heart sound present and S2 normal heart sound present GI: Inspection: No distended Palpation (GI): Soft to palpation and nontender Neuro: Other: grossly nonfocal General: patient oriented x3 Extrem: General: Yes no pedal edema Objective Data Active Medications Acetaminophen (Acetaminophen 325 Mg Tablet) 650 mg PO Q6H PRN PRN Reason: Pain, Mild (Pain Scale 1-3) Last Admin: 07/02/23 18:41 Dose: 650 mg Documented By: KAREN Albuterol Sulfate (Albuterol Sulfate 90 Mcg 8 Gm Inhaler) 2 puff INHALE Q6H PRN PRN Reason: Wheezing Albuterol/Ipratropium (Albuterol/Iprat 2.5/0.5mg 3 Ml Ampul.Neb) 3 ml INHALE RQ4H WHILE AWAKE [facility] Last Admin: 07/03/23 11:19 Dose: 3 ml Documented By: PADMA Alprazolam (Alprazolam 0.25 Mg Tablet) 0.25 mg PO BID@0830,1430 [facility] Last Admin: 07/03/23 08:37 Dose: 0.25 mg Documented By: KAREN Alprazolam (Alprazolam 0.5 Mg Tablet) 0.5 mg PO BEDTIME [facility] Last Admin: 07/02/23 20:14 Dose: 0.5 mg Documented By: KAYLYNN Amlodipine Besylate (Amlodipine Besylate 5 Mg Tablet) 5 mg PO DAILY [facility]; Protocol Last Admin: 07/03/23 08:37 Dose: 5 mg Documented By: KAREN Bisacodyl (Bisacodyl 10 Mg Supp.Rect) 10 mg [place] DAILY PRN PRN Reason: Constipation Divalproex Sodium (Divalproex Sodium 250 Mg Tablet.) 750 mg PO BEDTIME [facility] Last Admin: 07/02/23 20:13 Dose: 750 mg Documented By: KAYLYNN Divalproex Sodium (Divalproex Sodium Sprinkles 125 Mg Cap.Dr.Spr) 125 mg PO DAILY@1200 [facility] Last Admin: 07/03/23 11:58 Dose: 125 mg Documented By: KAREN Finasteride (Finasteride 5 Mg Tablet) 5 mg PO DAILY [facility] Last Admin: 07/03/23 08:37 Dose: 5 mg Documented By: KAREN Fluticasone Propionate (Fluticasone Propionate Nasal 16 Gm [place]) 2 spray NOSTRIL-B DAILY PRN PRN Reason: nasal congestion Guaifenesin (Guaifenesin [place] 600 Mg Tab.Er.12h) 1,200 mg PO BID [facility] Last Admin: 07/03/23 10:30 Dose: 1,200 mg Documented By: KAREN Guaifenesin/Dextromethorphan (Guaifenesin Dm 100/10/5 Ml 5 Ml Syrup) 5 ml PO Q4H PRN PRN Reason: cough Last Admin: 07/03/23 02:54 Dose: 5 ml Documented By: SHARON Heparin Sodium (Porcine) (Heparin Sodium,Porcine 5,000 Unit/Ml Vial) 5,000 unit SUBCUT Q12H [facility] Last Admin: 07/02/23 05:01 Dose: 5,000 unit Documented By: FRENCH Azithromycin 500 mg/ Sodium (Chloride) 250 mls @ 125 mls/hr IV Q24H [facility] Last Infusion: 07/03/23 00:32 Dose: 0 mls/hr Documented By: KAYLYNN Ampicillin Sodium/Sulbactam (Sodium 3 gm/ Sodium Chloride) 100 mls @ 200 mls/hr IV Q6H [facility] Last Infusion: 07/03/23 10:57 Dose: 0 mls/hr Documented By: KAREN Latanoprost (Latanoprost 0.005 % Ophth No 2.5 Ml Drops) 1 drop EYE-BOTH BEDTIME [facility] Last Admin: 07/02/23 20:47 Dose: 1 drop Documented By: KAYLYNN Magnesium Hydroxide (Milk Of Magnesia 30 Ml Oral.Susp) 30 ml PO BID PRN PRN Reason: constipation, stomach/GI upset Multivitamins/Vitamin C (Multivitamin Tablet) 1 tab PO DAILY [facility] Last Admin: 07/03/23 08:37 Dose: 1 tab Documented By: KAREN Naltrexone HCl (Naltrexone Hcl 50 Mg Tablet) 50 mg PO DAILY [facility] Last Admin: 07/03/23 08:37 Dose: 50 mg Documented By: KAREN Nortriptyline HCl (Nortriptyline Hcl 25 Mg Capsule) 75 mg PO BEDTIME [facility] Last Admin: 07/02/23 20:14 Dose: 75 mg Documented By: KAYLYNN Olanzapine (Olanzapine 2.5 Mg Tablet) 2.5 mg PO BEDTIME [facility] Last Admin: 07/02/23 20:15 Dose: 2.5 mg Documented By: KAYLYNN Ondansetron HCl (Ondansetron Hcl 4 Mg/2 Ml Vial) 4 mg IVPUSH Q8H PRN PRN Reason: Nausea and Vomiting Pharmacy Consult (Consult Rx Perform Med Rec) 1 each MISCELLANE ONCE PRN PRN Reason: Consult order Polyethylene Glycol (Polyethylene Glycol 3350 17 Gm Powd.Pack) 17 gm PO DAILY [facility] Last Admin: 07/03/23 11:58 Dose: 17 gm Documented By: KAREN Propranolol HCl (Propranolol Hcl 20 Mg Tablet) 20 mg PO TID [facility]; Protocol Last Admin: 07/03/23 08:37 Dose: 20 mg Documented By: KAREN Senna (Sennosides 8.6 Mg Tablet) 17.2 mg PO BEDTIME PRN PRN Reason: Constipation Last Admin: 07/02/23 20:13 Dose: 17.2 mg Documented By: KAYLYNN Trazodone HCl (Trazodone Hcl 100 Mg Tablet) 200 mg PO BEDTIME [facility] Last Admin: 07/02/23 20:14 Dose: 200 mg Documented By: KAYLYNN Vitamin D (Cholecalciferol (Vitamin D3) 10 Mcg Tablet) 10 mcg PO DAILY [facility] Last Admin: 07/03/23 08:37 Dose: 10 mcg Documented By: KAREN Vortioxetine (Vortioxetine Hydrobromide 10 Mg Tablet) 10 mg PO DAILY [facility] Last Admin: 07/03/23 08:37 Dose: 10 mg Documented By: KAREN Labs 07/03/23 05:55 07/02/23 06:20 Labs: Laboratory Results - last 24 hr 07/03/23 05:55 MCV 93.7 MCH 32.6 MCHC 34.8 RDW 12.2 Plt Count 136 L MPV 10.3 Absolute Nucleated RBC 0.000 Nucleated RBC % (auto) 0.0 Microbiology Microbiology Results: Microbiology 06/30/23 10:59 Blood Culture - Preliminary Blood - Venous No growth after 48 hours. 06/30/23 10:21 Blood Culture - Preliminary Blood - Venous No growth after 48 hours. Assessment and Plan (1) Pneumonia: Status: Acute Plan This is a 67-year-old man presented from a [place] [facility] with community-acquired pneumonia Severe sepsis secondary to community-acquired pneumonia versus aspiration pn [place]um[place]. still requiring frequent suctioning Sepsis has resolved- Initially with Leukocytosis, tachycardia, tachypnea, lactic acidosis Rhonchi throughout Continue unasyn/azithromycin Schedule DuoNebs seen by speech, rec to start NDD2 diet with suctioning prior to meals and close supervision/aspiration precautions blood cultures negative hematuria secondary to traumatic hendricks placement. resolved. UA negative for infection hold heparin - resume if urine remains clear tomorrow thrombocytopenia platelets improving likely related to acute illness follow CBC urinary retention hendricks placed will start flomax Mood Continue home medications History of hypertension Episodes of hypotension initially Blood pressure stable at this time, can restart antihypertensives DVT prophylaxis with SCDs, heparin on hold for hematuria Attending Dr. Grider Full code Continue hospitalization for treatment of severe sepsis secondary to pneumonia requiring IV antibiotics with close monitoring of respiratory status Time Spent With Patient Time: Total time managing care of this patient today ____ minutes. Quality Stroke Does the patient have a stroke diagnosis?: No VTE Prior VTE?: No VTE Risk Level:: Medical - moderate - high VTE Device Contraindication: Treatment Not Indicated VTE Drug Contraindication: N/A - Med Ordered
[2023-07-03 14:11] VITALS: BP 134/80; PULSE 68; RESP 20; TEMP 36.5; O2SAT 95
[2023-07-03 15:34] VITALS: BP 140/77; PULSE 62; RESP 18; TEMP 36.7; O2SAT 95
[2023-07-03 20:00] VITALS: BP 172/80; PULSE 78; RESP 18; TEMP 36.2; O2SAT 96
[2023-07-03] MEDS: traZODone HCL 100 MG TABLET 200 MG PO (21:33)
[2023-07-03] MEDS: Latanoprost 0.005 % Ophth Sol 2.5 ML DROPS 1 DROP EYE-BOTH (21:33)
[2023-07-03] MEDS: Nortriptyline HCl 25 MG CAPSULE 75 MG PO (21:33)
[2023-07-03] MEDS: Divalproex Sodium 250 MG TABLET.DR 750 MG PO (21:34)
[2023-07-03] MEDS: OLANZapine 2.5 MG TABLET PO (21:35)
[2023-07-03] MEDS: Tamsulosin HCL 0.4 MG CAPSULE PO (21:35)
[2023-07-03] MEDS: ALPRAZolam 0.5 MG TABLET PO (21:35)
[2023-07-03] MEDS: Azithromycin 500 MG in 0.9 % Sodium Chloride 250 ML 125 MG IV (22:31)
[2023-07-03 23:55] VITALS: BP 124/69; PULSE 58; RESP 19; TEMP 36.1; O2SAT 96
[2023-07-04] MEDS: guaiFENesin DM 100/10/5 ML 5 ML SYRUP PO (04:31)
[2023-07-04] MEDS: Ampicillin Sodium/Sulbactam Na 3 GM in 0.9 % Sodium Chloride 100 ML IV ×4 (04:31→22:08)
[2023-07-04] MEDS: LORazepam 2 MG/ML VIAL 1 MG IVPUSH (05:03)
--- NOTE | 2023-07-04 05:05 | PC.NURSE ---
pt was complain about the anxiety attack, the level is 15/10, I need Ativan. I got panic attack. dr. Montoya notified order Ativan 1 mg IVP. given by this nurse. will monitor anxiety level and any other changes it.
[2023-07-04 07:45] VITALS: BP 144/79; PULSE 84; RESP 18; TEMP 36.2; O2SAT 94
[2023-07-04] MEDS: Albuterol/Iprat 2.5/0.5MG 3 ML AMPUL.NEB INHALE ×4 (07:52→19:21)
[2023-07-04 07:56] VITALS: PULSE 83; RESP 18; O2SAT 93
[2023-07-04] MEDS: Propranolol HCL 20 MG TABLET PO ×3 (09:43→22:07)
[2023-07-04] MEDS: ALPRAZolam 0.25 MG TABLET PO ×2 (09:43→15:48)
[2023-07-04] MEDS: polyethylene glycoL 3350 17 GM POWD.PACK PO (09:43)
[2023-07-04] MEDS: amLODIPine Besylate 5 MG TABLET PO (09:43)
[2023-07-04] MEDS: Multivitamin TABLET 1 TAB PO (09:44)
[2023-07-04] MEDS: guaiFENesin LA 600 MG TAB.ER.12H 1200 MG PO ×2 (09:44→22:06)
[2023-07-04] MEDS: Cholecalciferol (Vitamin D3) 10 MCG TABLET PO (09:44)
[2023-07-04] MEDS: Naltrexone HCl 50 MG TABLET PO (09:45)
[2023-07-04] MEDS: Vortioxetine Hydrobromide 10 MG TABLET PO (09:45)
[2023-07-04] MEDS: Finasteride 5 MG TABLET PO (09:46)
--- NOTE | 2023-07-04 10:48 | HO.PM.IMPN ---
Subjective Subjective Date of Service: 07/04/23 Interval History: seen and examined this morning follow up for pneumonia less frequent suctioning no sob Review of Systems Review of Systems: Yes all other systems are reviewed and are negative Constitutional Constitutional: Denies chills and Denies fever(s) Cardiovascular Cardiovascular: Denies chest pain and Denies dyspnea Respiratory Respiratory: Denies dyspnea Gastrointestinal Gastrointestinal: Denies abdominal pain Physical Exam Vital Signs: Vital Signs: Last Vital Signs Temp 97.1 F 07/04/23 07:45 Pulse 83 07/04/23 07:56 Resp 18 07/04/23 07:56 BP 144/79 H 07/04/23 07:45 Pulse Ox 94 07/04/23 07:45 O2 Del Method Room Air 07/04/23 08:00 O2 Flow Rate 2 07/02/23 03:37 BMI result Body Mass Index 31.0 Appearing in no acute distress lung sounds are clear to auscultation heart regular rate rhythm, clear S1, S2 positive bowel sounds, abdomen is soft, nontender neuro patient is alert x3, no focal deficits Objective Data Active Medications Acetaminophen (Acetaminophen 325 Mg Tablet) 650 mg PO Q6H PRN PRN Reason: Pain, Mild (Pain Scale 1-3) Last Admin: 07/02/23 18:41 Dose: 650 mg Documented By: KAREN Albuterol Sulfate (Albuterol Sulfate 90 Mcg 8 Gm Inhaler) 2 puff INHALE Q6H PRN PRN Reason: Wheezing Albuterol/Ipratropium (Albuterol/Iprat 2.5/0.5mg 3 Ml Ampul.Neb) 3 ml INHALE RQ4H WHILE AWAKE [facility] Last Admin: 07/04/23 07:52 Dose: 3 ml Documented By: URMILA Alprazolam (Alprazolam 0.25 Mg Tablet) 0.25 mg PO BID@0830,1430 [facility] Last Admin: 07/04/23 09:43 Dose: 0.25 mg Documented By: LEN Alprazolam (Alprazolam 0.5 Mg Tablet) 0.5 mg PO BEDTIME [facility] Last Admin: 07/03/23 21:35 Dose: 0.5 mg Documented By: KAYLYNN Amlodipine Besylate (Amlodipine Besylate 5 Mg Tablet) 5 mg PO DAILY [facility]; Protocol Last Admin: 07/04/23 09:43 Dose: 5 mg Documented By: LEN Bisacodyl (Bisacodyl 10 Mg Supp.Rect) 10 mg [place] DAILY PRN PRN Reason: Constipation Divalproex Sodium (Divalproex Sodium 250 Mg Tablet.Dr) 750 mg PO BEDTIME [facility] Last Admin: 07/03/23 21:34 Dose: 750 mg Documented By: KAYLYNN Divalproex Sodium (Divalproex Sodium Sprinkles 125 Mg Cap..Spr) 125 mg PO DAILY@1200 [facility] Last Admin: 07/03/23 11:58 Dose: 125 mg Documented By: JERUSIEliceo Finasteride (Finasteride 5 Mg Tablet) 5 mg PO DAILY [facility] Last Admin: 07/04/23 09:46 Dose: 5 mg Documented By: LEN Fluticasone Propionate (Fluticasone Propionate Nasal 16 Gm [place]) 2 spray NOSTRIL-B DAILY PRN PRN Reason: nasal congestion Guaifenesin (Guaifenesin La 600 Mg Tab.Er.12h) 1,200 mg PO BID [facility] Last Admin: 07/04/23 09:44 Dose: 1,200 mg Documented By: LEN Guaifenesin/Dextromethorphan (Guaifenesin Dm 100/10/5 Ml 5 Ml Syrup) 5 ml PO Q4H PRN PRN Reason: cough Last Admin: 07/04/23 04:31 Dose: 5 ml Documented By: KAYLYNN Heparin Sodium (Porcine) (Heparin Sodium,Porcine 5,000 Unit/Ml Vial) 5,000 unit SUBCUT Q12H [facility] Last Admin: 07/02/23 05:01 Dose: 5,000 unit Documented By: FRENCH Azithromycin 500 mg/ Sodium (Chloride) 250 mls @ 125 mls/hr IV Q24H [facility] Last Infusion: 07/04/23 00:31 Dose: 0 mls/hr Documented By: KAYLYNN Ampicillin Sodium/Sulbactam (Sodium 3 gm/ Sodium Chloride) 100 mls @ 200 mls/hr IV Q6H [facility] Last Infusion: 07/04/23 05:05 Dose: 0 mls/hr Documented By: KAYLYNN Latanoprost (Latanoprost 0.005 % Ophth No 2.5 Ml Drops) 1 drop EYE-BOTH BEDTIME [facility] Last Admin: 07/03/23 21:33 Dose: 1 drop Documented By: KAYLYNN Magnesium Hydroxide (Milk Of Magnesia 30 Ml Oral.Susp) 30 ml PO BID PRN PRN Reason: constipation, stomach/GI upset Multivitamins/Vitamin C (Multivitamin Tablet) 1 tab PO DAILY [facility] Last Admin: 07/04/23 09:44 Dose: 1 tab Documented By: LEN Naltrexone HCl (Naltrexone Hcl 50 Mg Tablet) 50 mg PO DAILY [facility] Last Admin: 07/04/23 09:45 Dose: 50 mg Documented By: LEN Nortriptyline HCl (Nortriptyline Hcl 25 Mg Capsule) 75 mg PO BEDTIME [facility] Last Admin: 07/03/23 21:33 Dose: 75 mg Documented By: KAYLYNN Olanzapine (Olanzapine 2.5 Mg Tablet) 2.5 mg PO BEDTIME [facility] Last Admin: 07/03/23 21:35 Dose: 2.5 mg Documented By: KAYLYNN Ondansetron HCl (Ondansetron Hcl 4 Mg/2 Ml Vial) 4 mg IVPUSH Q8H PRN PRN Reason: Nausea and Vomiting Pharmacy Consult (Consult Rx Perform Med Rec) 1 each MISCELLANE ONCE PRN PRN Reason: Consult order Polyethylene Glycol (Polyethylene Glycol 3350 17 Gm Powd.Pack) 17 gm PO DAILY [facility] Last Admin: 07/04/23 09:43 Dose: 17 gm Documented By: LEN Propranolol HCl (Propranolol Hcl 20 Mg Tablet) 20 mg PO TID [facility]; Protocol Last Admin: 07/04/23 09:43 Dose: 20 mg Documented By: LEN Senna (Sennosides 8.6 Mg Tablet) 17.2 mg PO BEDTIME PRN PRN Reason: Constipation Last Admin: 07/02/23 20:13 Dose: 17.2 mg Documented By: KAYLYNN Tamsulosin HCl (Tamsulosin Hcl 0.4 Mg Capsule) 0.4 mg PO BEDTIME [facility] Last Admin: 07/03/23 21:35 Dose: 0.4 mg Documented By: KAYLYNN Trazodone HCl (Trazodone Hcl 100 Mg Tablet) 200 mg PO BEDTIME [facility] Last Admin: 07/03/23 21:33 Dose: 200 mg Documented By: KAYLYNN Vitamin D (Cholecalciferol (Vitamin D3) 10 Mcg Tablet) 10 mcg PO DAILY [facility] Last Admin: 07/04/23 09:44 Dose: 10 mcg Documented By: LEN Vortioxetine (Vortioxetine Hydrobromide 10 Mg Tablet) 10 mg PO DAILY [facility] Last Admin: 07/04/23 09:45 Dose: 10 mg Documented By: LEN Labs 07/03/23 05:55 07/02/23 06:20 Assessment and Plan (1) Pneumonia: Status: Acute Plan This is a 67-year-old man presented from a [facility] with community-acquired pneumonia Severe sepsis secondary to community-acquired pneumonia versus aspiration pneumonia. still requiring frequent suctioning Sepsis has resolved- Initially with Leukocytosis, tachycardia, tachypnea, lactic acidosis Rhonchi throughout Continue unasyn/azithromycin Schedule DuoNebs seen by speech, rec to start NDD2 diet with suctioning prior to meals and close supervision/aspiration precautions blood cultures negative hematuria. Resolved secondary to traumatic hendricks placement UA negative for infection hold heparin - resume if urine remains clear tomorrow thrombocytopenia platelets improving likely related to acute illness follow CBC urinary retention hendricks placed will start flomax Mood Continue home medications History of hypertension Episodes of hypotension initially Blood pressure stable at this time, can restart antihypertensives DVT prophylaxis with SCDs, heparin on hold for hematuria Attending Dr. Kramer Full code DISPO plan to return to [facility] when medically clear Continue hospitalization for treatment of severe sepsis secondary to pneumonia requiring IV antibiotics with close monitoring of respiratory status Time Spent With Patient Time: Total time managing care of this patient today ____ minutes. Quality Stroke Does the patient have a stroke diagnosis?: No VTE Prior VTE?: No VTE Risk Level:: Medical - moderate - high VTE Device Contraindication: Treatment Not Indicated VTE Drug Contraindication: N/A - Med Ordered
[2023-07-04 11:43] VITALS: PULSE 83; RESP 18; O2SAT 94
[2023-07-04] MEDS: Divalproex Sodium Sprinkles 125 MG CAP.DR.SPR PO (12:07)
[2023-07-04 15:25] VITALS: BP 130/70; PULSE 70; RESP 18; TEMP 36; O2SAT 95
[2023-07-04 19:22] VITALS: PULSE 70; RESP 18; O2SAT 95
[2023-07-04 20:00] VITALS: BP 157/76; PULSE 70; RESP 16; TEMP 36.2; O2SAT 94
[2023-07-04] MEDS: Latanoprost 0.005 % Ophth Sol 2.5 ML DROPS 1 DROP EYE-BOTH (22:05)
[2023-07-04] MEDS: Nortriptyline HCl 25 MG CAPSULE 75 MG PO (22:05)
[2023-07-04] MEDS: Tamsulosin HCL 0.4 MG CAPSULE PO (22:06)
[2023-07-04] MEDS: traZODone HCL 100 MG TABLET 200 MG PO (22:06)
[2023-07-04] MEDS: ALPRAZolam 0.5 MG TABLET PO (22:07)
[2023-07-04] MEDS: Divalproex Sodium 250 MG TABLET.DR 750 MG PO (22:07)
[2023-07-04] MEDS: OLANZapine 2.5 MG TABLET PO (22:07)
[2023-07-04] MEDS: Sennosides 8.6 MG TABLET 17.2 MG PO (22:23)
[2023-07-04] MEDS: Acetaminophen 325 MG TABLET 650 MG PO (22:38)
[2023-07-04] MEDS: Azithromycin 500 MG in 0.9 % Sodium Chloride 250 ML 125 MG IV (22:40)
[2023-07-05] VITALS (8 sets, daily range): BP systolic 148–160; BP diastolic 71–79; PULSE 66–75; RESP 16–20; TEMP 36–36.4; O2SAT 94–95
[2023-07-05] MEDS: Ampicillin Sodium/Sulbactam Na 3 GM in 0.9 % Sodium Chloride 100 ML IV ×4 (04:09→22:41)
[2023-07-05] MEDS: Albuterol/Iprat 2.5/0.5MG 3 ML AMPUL.NEB INHALE ×4 (07:55→20:08)
--- NOTE | 2023-07-05 09:47 | P.PNIM_ITS ---
Subjective Subjective Date of Service: 07/05/23 Interval History: seen and examined this morning follow up for pneumonia less frequent suctioning no sob Review of Systems Review of Systems: Yes all other systems are reviewed and are negative Constitutional Constitutional: Denies chills and Denies fever(s) Cardiovascular Cardiovascular: Denies chest pain and Denies dyspnea Respiratory Respiratory: Denies dyspnea Gastrointestinal Gastrointestinal: Denies abdominal pain Physical Exam Vital Signs: Vital Signs: Last Vital Signs Temp 97.5 F 07/05/23 07:35 Pulse 72 07/05/23 07:56 Resp 18 07/05/23 07:56 BP 160/79 H 07/05/23 07:35 Pulse Ox 94 07/05/23 07:35 O2 Del Method Room Air 07/05/23 07:35 O2 Flow Rate 2 07/02/23 03:37 BMI result Body Mass Index 31.0 Appearing in no acute distress lung sounds are clear to auscultation heart regular rate rhythm, clear S1, S2 positive bowel sounds, abdomen is soft, nontender neuro patient is alert x3, no focal deficits Objective Data Active Medications Acetaminophen (Acetaminophen 325 Mg Tablet) 650 mg PO Q6H PRN PRN Reason: Pain, Mild (Pain Scale 1-3) Last Admin: 07/04/23 22:38 Dose: 650 mg Documented By: KAYLYNN Albuterol Sulfate (Albuterol Sulfate 90 Mcg 8 Gm Inhaler) 2 puff INHALE Q6H PRN PRN Reason: Wheezing Albuterol/Ipratropium (Albuterol/Iprat 2.5/0.5mg 3 Ml Ampul.Neb) 3 ml INHALE RQ4H WHILE AWAKE [facility] Last Admin: 07/05/23 07:55 Dose: 3 ml Documented By: URMILA Alprazolam (Alprazolam 0.25 Mg Tablet) 0.25 mg PO BID@0830,1430 [facility] Last Admin: 07/04/23 15:48 Dose: 0.25 mg Documented By: LEN Alprazolam (Alprazolam 0.5 Mg Tablet) 0.5 mg PO BEDTIME [facility] Last Admin: 07/04/23 22:07 Dose: 0.5 mg Documented By: KAYLYNN Amlodipine Besylate (Amlodipine Besylate 5 Mg Tablet) 5 mg PO DAILY [facility]; Protocol Last Admin: 07/04/23 09:43 Dose: 5 mg Documented By: LEN Bisacodyl (Bisacodyl 10 Mg Supp.Rect) 10 mg [place] DAILY PRN PRN Reason: Constipation Divalproex Sodium (Divalproex Sodium 250 Mg Tablet.Dr) 750 mg PO BEDTIME [facility] Last Admin: 07/04/23 22:07 Dose: 750 mg Documented By: KAYLYNN Divalproex Sodium (Divalproex Sodium Sprinkles 125 Mg Cap..Spr) 125 mg PO DAILY@1200 [facility] Last Admin: 07/04/23 12:07 Dose: 125 mg Documented By: LEN Finasteride (Finasteride 5 Mg Tablet) 5 mg PO DAILY [facility] Last Admin: 07/04/23 09:46 Dose: 5 mg Documented By: LEN Fluticasone Propionate (Fluticasone Propionate Nasal 16 Gm [place]) 2 spray NOSTRIL-B DAILY PRN PRN Reason: nasal congestion Guaifenesin (Guaifenesin La 600 Mg Tab.Er.12h) 1,200 mg PO BID [facility] Last Admin: 07/04/23 22:06 Dose: 1,200 mg Documented By: KAYLYNN Guaifenesin/Dextromethorphan (Guaifenesin Dm 100/10/5 Ml 5 Ml Syrup) 5 ml PO Q4H PRN PRN Reason: cough Last Admin: 07/04/23 04:31 Dose: 5 ml Documented By: KAYLYNN Heparin Sodium (Porcine) (Heparin Sodium,Porcine 5,000 Unit/Ml Vial) 5,000 unit SUBCUT Q12H [facility] Last Admin: 07/02/23 05:01 Dose: 5,000 unit Documented By: FRENCH Azithromycin 500 mg/ Sodium (Chloride) 250 mls @ 125 mls/hr IV Q24H [facility] Last Infusion: 07/05/23 00:51 Dose: 0 mls/hr Documented By: KAYLYNN Ampicillin Sodium/Sulbactam (Sodium 3 gm/ Sodium Chloride) 100 mls @ 200 mls/hr IV Q6H [facility] Last Infusion: 07/05/23 04:39 Dose: 0 mls/hr Documented By: KAYLYNN Latanoprost (Latanoprost 0.005 % Ophth No 2.5 Ml Drops) 1 drop EYE-BOTH BEDTIME [facility] Last Admin: 07/04/23 22:05 Dose: 1 drop Documented By: KAYLYNN Magnesium Hydroxide (Milk Of Magnesia 30 Ml Oral.Susp) 30 ml PO BID PRN PRN Reason: constipation, stomach/GI upset Multivitamins/Vitamin C (Multivitamin Tablet) 1 tab PO DAILY [facility] Last Admin: 07/04/23 09:44 Dose: 1 tab Documented By: LEN Naltrexone HCl (Naltrexone Hcl 50 Mg Tablet) 50 mg PO DAILY [facility] Last Admin: 07/04/23 09:45 Dose: 50 mg Documented By: LEN Nortriptyline HCl (Nortriptyline Hcl 25 Mg Capsule) 75 mg PO BEDTIME [facility] Last Admin: 07/04/23 22:05 Dose: 75 mg Documented By: KAYLYNN Olanzapine (Olanzapine 2.5 Mg Tablet) 2.5 mg PO BEDTIME [facility] Last Admin: 07/04/23 22:07 Dose: 2.5 mg Documented By: KAYLYNN Ondansetron HCl (Ondansetron Hcl 4 Mg/2 Ml Vial) 4 mg IVPUSH Q8H PRN PRN Reason: Nausea and Vomiting Pharmacy Consult (Consult Rx Perform Med Rec) 1 each MISCELLANE ONCE PRN PRN Reason: Consult order Polyethylene Glycol (Polyethylene Glycol 3350 17 Gm Powd.Pack) 17 gm PO DAILY [facility] Last Admin: 07/04/23 09:43 Dose: 17 gm Documented By: LEN Propranolol HCl (Propranolol Hcl 20 Mg Tablet) 20 mg PO TID [facility]; Protocol Last Admin: 07/04/23 22:07 Dose: 20 mg Documented By: KAYLYNN Senna (Sennosides 8.6 Mg Tablet) 17.2 mg PO BEDTIME PRN PRN Reason: Constipation Last Admin: 07/04/23 22:23 Dose: 8.6 mg Documented By: KAYLYNN Comments: pt wants 8.6 mg only Tamsulosin HCl (Tamsulosin Hcl 0.4 Mg Capsule) 0.4 mg PO BEDTIME [facility] Last Admin: 07/04/23 22:06 Dose: 0.4 mg Documented By: KAYLYNN Trazodone HCl (Trazodone Hcl 100 Mg Tablet) 200 mg PO BEDTIME [facility] Last Admin: 07/04/23 22:06 Dose: 200 mg Documented By: KAYLYNN Vitamin D (Cholecalciferol (Vitamin D3) 10 Mcg Tablet) 10 mcg PO DAILY [facility] Last Admin: 07/04/23 09:44 Dose: 10 mcg Documented By: LEN Vortioxetine (Vortioxetine Hydrobromide 10 Mg Tablet) 10 mg PO DAILY [facility] Last Admin: 07/04/23 09:45 Dose: 10 mg Documented By: LEN Labs 07/03/23 05:55 07/02/23 06:20 Assessment and Plan (1) Pneumonia: Status: Acute Plan This is a 67-year-old man presented from a [facility] with community-acquired pneumonia Severe sepsis secondary to community-acquired pneumonia versus aspiration pneumonia. still requiring frequent suctioning Sepsis has resolved- Initially with Leukocytosis, tachycardia, tachypnea, lactic acidosis Rhonchi throughout Continue unasyn/azithromycin Schedule DuoNebs seen by speech, rec to start NDD2 diet with suctioning prior to meals and close supervision/aspiration precautions blood cultures negative hematuria. Resolved secondary to traumatic hendricks placement UA negative for infection hold heparin - resume if urine remains clear tomorrow thrombocytopenia platelets improving likely related to acute illness follow CBC urinary retention. Resolved hendricks dc'd continue flomax Mood Continue home medications History of hypertension Episodes of hypotension initially Blood pressure stable at this time, can restart antihypertensives DVT prophylaxis with SCDs, heparin on hold for hematuria Attending Dr. Kramer Full code DISPO plan to return to [facility] when medically clear Continue hospitalization for treatment of severe sepsis secondary to pneumonia requiring IV antibiotics with close monitoring of respiratory status Time Spent With Patient Time: Total time managing care of this patient today ____ minutes. Quality Stroke Does the patient have a stroke diagnosis?: No VTE Prior VTE?: No VTE Risk Level:: Medical - moderate - high VTE Device Contraindication: Treatment Not Indicated VTE Drug Contraindication: N/A - Med Ordered
[2023-07-05] MEDS: ALPRAZolam 0.25 MG TABLET PO ×2 (10:00→14:13)
[2023-07-05] MEDS: Vortioxetine Hydrobromide 10 MG TABLET PO (10:00)
[2023-07-05] MEDS: guaiFENesin LA 600 MG TAB.ER.12H 1200 MG PO ×2 (10:00→21:34)
[2023-07-05] MEDS: Finasteride 5 MG TABLET PO (10:00)
[2023-07-05] MEDS: polyethylene glycoL 3350 17 GM POWD.PACK PO (10:00)
[2023-07-05] MEDS: amLODIPine Besylate 5 MG TABLET PO (10:00)
[2023-07-05] MEDS: Naltrexone HCl 50 MG TABLET PO (10:01)
[2023-07-05] MEDS: Multivitamin TABLET 1 TAB PO (10:01)
[2023-07-05] MEDS: Cholecalciferol (Vitamin D3) 10 MCG TABLET PO (10:01)
[2023-07-05] MEDS: Propranolol HCL 20 MG TABLET PO ×3 (10:01→21:31)
[2023-07-05] MEDS: Divalproex Sodium Sprinkles 125 MG CAP.DR.SPR PO (12:19)
[2023-07-05] MEDS: Acetaminophen 325 MG TABLET 650 MG PO (14:13)
[2023-07-05] MEDS: Nortriptyline HCl 25 MG CAPSULE 75 MG PO (21:31)
[2023-07-05] MEDS: Divalproex Sodium 250 MG TABLET.DR 750 MG PO (21:31)
[2023-07-05] MEDS: Latanoprost 0.005 % Ophth Sol 2.5 ML DROPS 1 DROP EYE-BOTH (21:31)
[2023-07-05] MEDS: OLANZapine 2.5 MG TABLET PO (21:32)
[2023-07-05] MEDS: Tamsulosin HCL 0.4 MG CAPSULE PO (21:32)
[2023-07-05] MEDS: Sennosides 8.6 MG TABLET 17.2 MG PO (21:32)
[2023-07-05] MEDS: traZODone HCL 100 MG TABLET 200 MG PO (21:32)
[2023-07-05] MEDS: ALPRAZolam 0.5 MG TABLET PO (21:32)
[2023-07-05] MEDS: Azithromycin 500 MG in 0.9 % Sodium Chloride 250 ML 125 MG IV (23:50)
[2023-07-06] VITALS (9 sets, daily range): BP systolic 145–163; BP diastolic 72–82; PULSE 65–85; RESP 16–20; TEMP 36–36.5; O2SAT 93–96
[2023-07-06] MEDS: LORazepam 2 MG/ML VIAL 1 MG IVPUSH (00:04)
--- NOTE | 2023-07-06 01:54 | PC.NURSE ---
pt was very frustrated by IV pump beeping, he tried to knock it down and combative w/abusive language. filtration supervisor was presence and notified dr. Montoya. received Ativan 1 mg IVP order. given by this nurse. rewrapped IV site finished IV ABX. sleeping at this time. will monitor his anxiety levels and behavior changes.
[2023-07-06] MEDS: Ampicillin Sodium/Sulbactam Na 3 GM in 0.9 % Sodium Chloride 100 ML IV ×4 (05:20→22:01)
[2023-07-06] MEDS: Acetaminophen 325 MG TABLET 650 MG PO ×2 (06:34→20:02)
[2023-07-06] MEDS: Albuterol/Iprat 2.5/0.5MG 3 ML AMPUL.NEB INHALE ×4 (08:31→20:01)
[2023-07-06] MEDS: ALPRAZolam 0.25 MG TABLET PO ×2 (08:39→15:45)
[2023-07-06] MEDS: Naltrexone HCl 50 MG TABLET PO (08:39)
[2023-07-06] MEDS: guaiFENesin LA 600 MG TAB.ER.12H 1200 MG PO ×2 (08:40→22:12)
[2023-07-06] MEDS: Propranolol HCL 20 MG TABLET PO ×3 (08:40→22:12)
[2023-07-06] MEDS: amLODIPine Besylate 5 MG TABLET PO (08:40)
[2023-07-06] MEDS: Multivitamin TABLET 1 TAB PO (08:40)
[2023-07-06] MEDS: Vortioxetine Hydrobromide 10 MG TABLET PO (08:40)
[2023-07-06] MEDS: Cholecalciferol (Vitamin D3) 10 MCG TABLET PO (08:40)
[2023-07-06] MEDS: polyethylene glycoL 3350 17 GM POWD.PACK PO (08:41)
[2023-07-06] MEDS: Finasteride 5 MG TABLET PO (08:44)
[2023-07-06] MEDS: Divalproex Sodium Sprinkles 125 MG CAP.DR.SPR PO (12:28)
--- NOTE | 2023-07-06 13:34 | HO.PM.IMPN ---
Subjective Subjective Date of Service: 07/07/23 Interval History: seen and examined this morning follow up for pneumonia less frequent suctioning no sob Review of Systems Review of Systems: Yes all other systems are reviewed and are negative Constitutional Constitutional: Denies chills and Denies fever(s) Cardiovascular Cardiovascular: Denies chest pain and Denies dyspnea Respiratory Respiratory: Denies dyspnea Gastrointestinal Gastrointestinal: Denies abdominal pain Physical Exam Vital Signs: Vital Signs: Last Vital Signs Temp 97.4 F 07/06/23 07:21 Pulse 75 07/06/23 11:48 Resp 16 07/06/23 11:48 BP 149/72 H 07/06/23 07:21 Pulse Ox 94 07/06/23 07:21 O2 Del Method Room Air 07/06/23 08:00 O2 Flow Rate 2 07/02/23 03:37 BMI result Body Mass Index 31.0 Appearing in no acute distress lung sounds are clear to auscultation heart regular rate rhythm, clear S1, S2 positive bowel sounds, abdomen is soft, nontender neuro patient is alert x3, no focal deficits bed/chair bound Objective Data Active Medications Acetaminophen (Acetaminophen 325 Mg Tablet) 650 mg PO Q6H PRN PRN Reason: Pain, Mild (Pain Scale 1-3) Last Admin: 07/06/23 06:34 Dose: 650 mg Documented By: KAYLYNN Albuterol Sulfate (Albuterol Sulfate 90 Mcg 8 Gm Inhaler) 2 puff INHALE Q6H PRN PRN Reason: Wheezing Albuterol/Ipratropium (Albuterol/Iprat 2.5/0.5mg 3 Ml Ampul.Neb) 3 ml INHALE RQ4H WHILE AWAKE [facility] Last Admin: 07/06/23 11:47 Dose: 3 ml Documented By: ROBERT Alprazolam (Alprazolam 0.25 Mg Tablet) 0.25 mg PO BID@0830,1430 [facility] Last Admin: 07/06/23 08:39 Dose: 0.25 mg Documented By: JESSI Alprazolam (Alprazolam 0.5 Mg Tablet) 0.5 mg PO BEDTIME [facility] Last Admin: 07/05/23 21:32 Dose: 0.5 mg Documented By: KAYLYNN Amlodipine Besylate (Amlodipine Besylate 5 Mg Tablet) 5 mg PO DAILY [facility]; Protocol Last Admin: 07/06/23 08:40 Dose: 5 mg Documented By: JESSI Bisacodyl (Bisacodyl 10 Mg Supp.Rect) 10 mg [place] DAILY PRN PRN Reason: Constipation Divalproex Sodium (Divalproex Sodium 250 Mg Tablet.) 750 mg PO BEDTIME [facility] Last Admin: 07/05/23 21:31 Dose: 750 mg Documented By: KAYLYNN Divalproex Sodium (Divalproex Sodium Sprinkles 125 Mg Cap.Spr) 125 mg PO DAILY@1200 [facility] Last Admin: 07/06/23 12:28 Dose: 125 mg Documented By: JESSI Finasteride (Finasteride 5 Mg Tablet) 5 mg PO DAILY [facility] Last Admin: 07/06/23 08:44 Dose: 5 mg Documented By: JESSI Fluticasone Propionate (Fluticasone Propionate Nasal 16 Gm [place]) 2 spray NOSTRIL-B DAILY PRN PRN Reason: nasal congestion Guaifenesin (Guaifenesin [place] 600 Mg Tab.Er.12h) 1,200 mg PO BID [facility] Last Admin: 07/06/23 08:40 Dose: 1,200 mg Documented By: JESSI Guaifenesin/Dextromethorphan (Guaifenesin Dm 100/10/5 Ml 5 Ml Syrup) 5 ml PO Q4H PRN PRN Reason: cough Last Admin: 07/04/23 04:31 Dose: 5 ml Documented By: KAYLYNN Heparin Sodium (Porcine) (Heparin Sodium,Porcine 5,000 Unit/Ml Vial) 5,000 unit SUBCUT Q12H [facility] Last Admin: 07/02/23 05:01 Dose: 5,000 unit Documented By: FRENCH Azithromycin 500 mg/ Sodium (Chloride) 250 mls @ 125 mls/hr IV Q24H [facility] Last Infusion: 07/06/23 01:54 Dose: 0 mls/hr Documented By: KAYLYNN Ampicillin Sodium/Sulbactam (Sodium 3 gm/ Sodium Chloride) 100 mls @ 200 mls/hr IV Q6H [facility] Last Infusion: 07/06/23 12:28 Dose: 0 mls/hr Documented By: JESSI Latanoprost (Latanoprost 0.005 % Ophth No 2.5 Ml Drops) 1 drop EYE-BOTH BEDTIME [facility] Last Admin: 07/05/23 21:31 Dose: 1 drop Documented By: KAYLYNN Magnesium Hydroxide (Milk Of Magnesia 30 Ml Oral.Susp) 30 ml PO BID PRN PRN Reason: constipation, stomach/GI upset Multivitamins/Vitamin C (Multivitamin Tablet) 1 tab PO DAILY [facility] Last Admin: 07/06/23 08:40 Dose: 1 tab Documented By: JESSI Naltrexone HCl (Naltrexone Hcl 50 Mg Tablet) 50 mg PO DAILY [facility] Last Admin: 07/06/23 08:39 Dose: 50 mg Documented By: JESSI Nortriptyline HCl (Nortriptyline Hcl 25 Mg Capsule) 75 mg PO BEDTIME [facility] Last Admin: 07/05/23 21:31 Dose: 75 mg Documented By: KAYLYNN Olanzapine (Olanzapine 2.5 Mg Tablet) 2.5 mg PO BEDTIME [facility] Last Admin: 07/05/23 21:32 Dose: 2.5 mg Documented By: KAYLYNN Ondansetron HCl (Ondansetron Hcl 4 Mg/2 Ml Vial) 4 mg IVPUSH Q8H PRN PRN Reason: Nausea and Vomiting Polyethylene Glycol (Polyethylene Glycol 3350 17 Gm Powd.Pack) 17 gm PO DAILY [facility] Last Admin: 07/06/23 08:41 Dose: 17 gm Documented By: JESSI Propranolol HCl (Propranolol Hcl 20 Mg Tablet) 20 mg PO TID [facility]; Protocol Last Admin: 07/06/23 08:40 Dose: 20 mg Documented By: JESSI Senna (Sennosides 8.6 Mg Tablet) 17.2 mg PO BEDTIME PRN PRN Reason: Constipation Last Admin: 07/05/23 21:32 Dose: 17.2 mg Documented By: KAYLYNN Tamsulosin HCl (Tamsulosin Hcl 0.4 Mg Capsule) 0.4 mg PO BEDTIME [facility] Last Admin: 07/05/23 21:32 Dose: 0.4 mg Documented By: KAYLYNN Trazodone HCl (Trazodone Hcl 100 Mg Tablet) 200 mg PO BEDTIME [facility] Last Admin: 07/05/23 21:32 Dose: 200 mg Documented By: KAYLYNN Vitamin D (Cholecalciferol (Vitamin D3) 10 Mcg Tablet) 10 mcg PO DAILY [facility] Last Admin: 07/06/23 08:40 Dose: 10 mcg Documented By: JESSI Vortioxetine (Vortioxetine Hydrobromide 10 Mg Tablet) 10 mg PO DAILY [facility] Last Admin: 07/06/23 08:40 Dose: 10 mg Documented By: JESSI Labs 07/03/23 05:55 07/02/23 06:20 Microbiology Microbiology Results: Microbiology 06/30/23 10:59 Blood Culture - Final Blood - Venous No growth after 5 days. 06/30/23 10:21 Blood Culture - Final Blood - Venous No growth after 5 days. Assessment and Plan (1) Pneumonia: Status: Acute Plan This is a 67-year-old man presented from a [facility] with community-acquired pneumonia Severe sepsis secondary to community-acquired pneumonia versus aspiration pneumonia. still requiring frequent suctioning Sepsis has resolved- Initially with Leukocytosis, tachycardia, tachypnea, lactic acidosis Rhonchi throughout Continue unasyn/azithromycin Schedule DuoNebs seen by speech, rec to start NDD2 diet with suctioning prior to meals and close supervision/aspiration precautions blood cultures negative hematuria. Resolved secondary to traumatic hendricks placement UA negative for infection hold heparin - resume if urine remains clear tomorrow thrombocytopenia platelets improving likely related to acute illness follow CBC urinary retention. Resolved hendricks dc'd continue flomax Mood Continue home medications History of hypertension Episodes of hypotension initially Blood pressure stable at this time, can restart antihypertensives DVT prophylaxis with SCDs, heparin on hold for hematuria Attending Dr. Grider Full code DISPO plan to return to [facility] when medically clear Continue hospitalization for treatment of severe sepsis secondary to pneumonia requiring IV antibiotics with close monitoring of respiratory status Time Spent With Patient Time: Total time managing care of this patient today ____ minutes. Quality Stroke Does the patient have a stroke diagnosis?: No VTE Prior VTE?: No VTE Risk Level:: Medical - moderate - high VTE Device Contraindication: Treatment Not Indicated VTE Drug Contraindication: N/A - Med Ordered
--- NOTE | 2023-07-06 15:58 | MHC.CM.PN ---
PT NOT YET MEDICALLY CLEARED FOR DC DCP REMAINS RETURN TO [facility]
[2023-07-06] MEDS: Latanoprost 0.005 % Ophth Sol 2.5 ML DROPS 1 DROP EYE-BOTH (22:02)
[2023-07-06] MEDS: Nortriptyline HCl 25 MG CAPSULE 75 MG PO (22:12)
[2023-07-06] MEDS: Tamsulosin HCL 0.4 MG CAPSULE PO (22:13)
[2023-07-06] MEDS: traZODone HCL 100 MG TABLET 200 MG PO (22:13)
[2023-07-06] MEDS: ALPRAZolam 0.5 MG TABLET PO (22:13)
[2023-07-06] MEDS: OLANZapine 2.5 MG TABLET PO (22:13)
[2023-07-06] MEDS: Divalproex Sodium 250 MG TABLET.DR 750 MG PO (22:13)
[2023-07-06] MEDS: Azithromycin 500 MG in 0.9 % Sodium Chloride 250 ML 125 MG IV (22:37)
[2023-07-07] MEDS: Ampicillin Sodium/Sulbactam Na 3 GM in 0.9 % Sodium Chloride 100 ML IV (04:42)
[2023-07-07 07:12] VITALS: BP 154/72; PULSE 78; RESP 18; TEMP 36.5; O2SAT 94
[2023-07-07] MEDS: Vortioxetine Hydrobromide 10 MG TABLET PO (09:02)
[2023-07-07] MEDS: Propranolol HCL 20 MG TABLET PO (09:02)
[2023-07-07] MEDS: Finasteride 5 MG TABLET PO (09:02)
[2023-07-07] MEDS: Naltrexone HCl 50 MG TABLET PO (09:02)
[2023-07-07] MEDS: Multivitamin TABLET 1 TAB PO (09:02)
[2023-07-07] MEDS: ALPRAZolam 0.25 MG TABLET PO (09:02)
[2023-07-07] MEDS: guaiFENesin LA 600 MG TAB.ER.12H 1200 MG PO (09:02)
[2023-07-07] MEDS: Cholecalciferol (Vitamin D3) 10 MCG TABLET PO (09:02)
[2023-07-07] MEDS: amLODIPine Besylate 5 MG TABLET PO (09:02)
[2023-07-07] MEDS: polyethylene glycoL 3350 17 GM POWD.PACK PO (09:03)
--- NOTE | 2023-07-07 09:43 | P.PNIM_ITS ---
Subjective Subjective Date of Service: 07/07/23 Interval History: seen and examined this morning follow up for pneumonia less frequent suctioning no sob Review of Systems Review of Systems: Yes all other systems are reviewed and are negative Constitutional Constitutional: Denies chills and Denies fever(s) Cardiovascular Cardiovascular: Denies chest pain and Denies dyspnea Respiratory Respiratory: Denies dyspnea Gastrointestinal Gastrointestinal: Denies abdominal pain Physical Exam Vital Signs: Vital Signs: Last Vital Signs Temp 97.7 F 07/07/23 07:12 Pulse 78 07/07/23 07:12 Resp 18 07/07/23 07:12 BP 154/72 H 07/07/23 07:12 Pulse Ox 94 07/07/23 07:12 O2 Del Method Room Air 07/07/23 07:12 O2 Flow Rate 2 07/02/23 03:37 BMI result Body Mass Index 31.0 Appearing in no acute distress lung sounds are clear to auscultation heart regular rate rhythm, clear S1, S2 positive bowel sounds, abdomen is soft, nontender neuro patient is alert x3, no focal deficits Objective Data Active Medications Acetaminophen (Acetaminophen 325 Mg Tablet) 650 mg PO Q6H PRN PRN Reason: Pain, Mild (Pain Scale 1-3) Last Admin: 07/06/23 20:02 Dose: 650 mg Documented By: KAYLYNN Albuterol Sulfate (Albuterol Sulfate 90 Mcg 8 Gm Inhaler) 2 puff INHALE Q6H PRN PRN Reason: Wheezing Albuterol/Ipratropium (Albuterol/Iprat 2.5/0.5mg 3 Ml Ampul.Neb) 3 ml INHALE RQ4H WHILE AWAKE [facility] Last Admin: 07/07/23 08:24 Dose: Not Given Documented By: ROBERT Non-Admin Reason: Patient Refused Alprazolam (Alprazolam 0.25 Mg Tablet) 0.25 mg PO BID@0830,1430 [facility] Last Admin: 07/07/23 09:02 Dose: 0.25 mg Documented By: TOMI Alprazolam (Alprazolam 0.5 Mg Tablet) 0.5 mg PO BEDTIME [facility] Last Admin: 07/06/23 22:13 Dose: 0.5 mg Documented By: KAYLYNN Amlodipine Besylate (Amlodipine Besylate 5 Mg Tablet) 5 mg PO DAILY [facility]; Protocol Last Admin: 07/07/23 09:02 Dose: 5 mg Documented By: TOMI Bisacodyl (Bisacodyl 10 Mg Supp.Rect) 10 mg [place] DAILY PRN PRN Reason: Constipation Divalproex Sodium (Divalproex Sodium 250 Mg Tablet.Dr) 750 mg PO BEDTIME [facility] Last Admin: 07/06/23 22:13 Dose: 750 mg Documented By: KAYLYNN Divalproex Sodium (Divalproex Sodium Sprinkles 125 Mg Cap..Spr) 125 mg PO DAILY@1200 [facility] Last Admin: 07/06/23 12:28 Dose: 125 mg Documented By: JESSI Finasteride (Finasteride 5 Mg Tablet) 5 mg PO DAILY [facility] Last Admin: 07/07/23 09:02 Dose: 5 mg Documented By: TOMI Fluticasone Propionate (Fluticasone Propionate Nasal 16 Gm [place]) 2 spray NOSTRIL-B DAILY PRN PRN Reason: nasal congestion Guaifenesin (Guaifenesin [place] 600 Mg Tab.Er.12h) 1,200 mg PO BID [facility] Last Admin: 07/07/23 09:02 Dose: 1,200 mg Documented By: TOMI Guaifenesin/Dextromethorphan (Guaifenesin Dm 100/10/5 Ml 5 Ml Syrup) 5 ml PO Q4H PRN PRN Reason: cough Last Admin: 07/04/23 04:31 Dose: 5 ml Documented By: KAYLYNN Heparin Sodium (Porcine) (Heparin Sodium,Porcine 5,000 Unit/Ml Vial) 5,000 unit SUBCUT Q12H [facility] Last Admin: 07/02/23 05:01 Dose: 5,000 unit Documented By: FRENCH Azithromycin 500 mg/ Sodium (Chloride) 250 mls @ 125 mls/hr IV Q24H [facility] Last Infusion: 07/07/23 00:39 Dose: 0 mls/hr Documented By: KAYLYNN Ampicillin Sodium/Sulbactam (Sodium 3 gm/ Sodium Chloride) 100 mls @ 200 mls/hr IV Q6H [facility] Last Infusion: 07/07/23 05:12 Dose: 0 mls/hr Documented By: KAYLYNN Latanoprost (Latanoprost 0.005 % Ophth No 2.5 Ml Drops) 1 drop EYE-BOTH BEDTIME [facility] Last Admin: 07/06/23 22:02 Dose: 1 drop Documented By: KAYLYNN Magnesium Hydroxide (Milk Of Magnesia 30 Ml Oral.Susp) 30 ml PO BID PRN PRN Reason: constipation, stomach/GI upset Multivitamins/Vitamin C (Multivitamin Tablet) 1 tab PO DAILY [facility] Last Admin: 07/07/23 09:02 Dose: 1 tab Documented By: TOMI Naltrexone HCl (Naltrexone Hcl 50 Mg Tablet) 50 mg PO DAILY [facility] Last Admin: 07/07/23 09:02 Dose: 50 mg Documented By: TOMI Nortriptyline HCl (Nortriptyline Hcl 25 Mg Capsule) 75 mg PO BEDTIME [facility] Last Admin: 07/06/23 22:12 Dose: 75 mg Documented By: KAYLYNN Olanzapine (Olanzapine 2.5 Mg Tablet) 2.5 mg PO BEDTIME [facility] Last Admin: 07/06/23 22:13 Dose: 2.5 mg Documented By: KAYLYNN Ondansetron HCl (Ondansetron Hcl 4 Mg/2 Ml Vial) 4 mg IVPUSH Q8H PRN PRN Reason: Nausea and Vomiting Polyethylene Glycol (Polyethylene Glycol 3350 17 Gm Powd.Pack) 17 gm PO DAILY [facility] Last Admin: 07/07/23 09:03 Dose: 17 gm Documented By: TOMI Propranolol HCl (Propranolol Hcl 20 Mg Tablet) 20 mg PO TID [facility]; Protocol Last Admin: 07/07/23 09:02 Dose: 20 mg Documented By: TOMI Senna (Sennosides 8.6 Mg Tablet) 17.2 mg PO BEDTIME PRN PRN Reason: Constipation Last Admin: 07/05/23 21:32 Dose: 17.2 mg Documented By: KAYLYNN Tamsulosin HCl (Tamsulosin Hcl 0.4 Mg Capsule) 0.4 mg PO BEDTIME [facility] Last Admin: 07/06/23 22:13 Dose: 0.4 mg Documented By: KAYLYNN Trazodone HCl (Trazodone Hcl 100 Mg Tablet) 200 mg PO BEDTIME [facility] Last Admin: 07/06/23 22:13 Dose: 200 mg Documented By: KAYLYNN Vitamin D (Cholecalciferol (Vitamin D3) 10 Mcg Tablet) 10 mcg PO DAILY [facility] Last Admin: 07/07/23 09:02 Dose: 10 mcg Documented By: TOMI Vortioxetine (Vortioxetine Hydrobromide 10 Mg Tablet) 10 mg PO DAILY [facility] Last Admin: 07/07/23 09:02 Dose: 10 mg Documented By: TOMI Labs 07/03/23 05:55 07/02/23 06:20 Assessment and Plan (1) Pneumonia: Status: Acute Plan This is a 67-year-old man presented from a halfway with community-acquired pneumonia Aspiration plan for MBS tomorrow NPO after midnight speech following Severe sepsis secondary to community-acquired pneumonia versus aspiration pneumonia. still requiring frequent suctioning Sepsis has resolved- Initially with Leukocytosis, tachycardia, tachypnea, lactic acidosis Rhonchi throughout-less today Continue unasyn/azithromycin Schedule DuoNebs seen by speech, rec to start NDD2 diet with suctioning prior to meals and close supervision/aspiration precautions blood cultures negative hematuria. Resolved secondary to traumatic hendricks placement UA negative for infection hold heparin - resume if urine remains clear tomorrow thrombocytopenia platelets improving likely related to acute illness follow CBC urinary retention. Resolved hendricks dc'd continue flomax Mood Continue home medications History of hypertension Episodes of hypotension initially Blood pressure stable at this time, can restart antihypertensives DVT prophylaxis with SCDs, heparin on hold for hematuria Attending Dr. Grider Full code DISPO plan to return to halfway when medically clear Continue hospitalization for treatment of severe sepsis secondary to pneumonia requiring IV antibiotics with close monitoring of respiratory status Time Spent With Patient Time: Total time managing care of this patient today ____ minutes. Quality Stroke Does the patient have a stroke diagnosis?: No VTE Prior VTE?: No VTE Risk Level:: Medical - moderate - high VTE Device Contraindication: Treatment Not Indicated VTE Drug Contraindication: N/A - Med Ordered
--- NOTE | 2023-07-07 10:51 | P.DS_ITS ---
DS: Providers Provider Date of Service: 07/07/23 Date of admission: 06/30/23 16:48 Primary care physician: Wilmer Enciso MD Consults: 07/01/23 12:45 Consult to Psychiatry Routine Consulting Provider: Psych Covering Reason for consultation: medication consolidation DS: Diagnosis Discharge Diagnosis (1) Pneumonia: Status: Acute DS: Summary Hospital Course Hospital Course: 67-year-old man presenting from a shelter with shortness of breath and cough that started yesterday after taking some medication.? Apparently he was brought to [facility] but discharged with no diagnosis or medications.? He was sent back to the shelter and he felt weak, lethargic and hot to the touch.? He had a phlegmy cough.? He is mostly full care.? He denied chest pain, nausea, vomiting, diarrhea.? Patient was not noted to be hypoxic at any time but has been on 2 L of nasal cannula in the ER.? Chest CTA showed no evidence of pulmonary embolism, dependent posterior lung base consolidation consistent with atelectasis.? His white blood cell count was elevated 21.9, no fever but noted tachycardia and tachypnea, elevated lactic acid of 2.9, negative flu, COVID and RSV.? He was treated with normal saline, Rocephin.? He will be admitted for further management and treatment of severe sepsis secondary to community- acquired pneumonia. 67-year-old man treated for aspiration pneumonia. Patient has history of TBI and has been experiencing more episodes of coughing with food and medications. He was seen evaluated by speech therapy, diet changed to chopped. Patient has improved significantly with less sick phlegm. He was able to self suction at bedside. He was treated with ampicillin and azithromycin for 6 days. Sepsis had resolved during hospitalization. Cultures have remained negative. He also had an episode of hematuria with to secondary to traumatic Lorenz catheter placement which did resolve. Lorenz catheter was subsequently removed and patient has been urinating without any difficulties although he did have some urinary retention and was started on Flomax. Mental health . Continue home medications Hypertension. continue home medications Time Spent with Patient Time attestation: Total time managing care of this patient today ____ minutes. Discharge coordination time: Greater than 30 minutes Quality: Safe Use of Opioids Does Pt have an Active Cancer Diagnosis on the Problem List?: No Quality: Stroke Does the patient have a stroke diagnosis?: No Physical Exam Vital Signs: Vital Signs: Last Vital Signs Temp 97.7 F 07/07/23 07:12 Pulse 78 07/07/23 07:12 Resp 18 07/07/23 07:12 BP 154/72 H 07/07/23 07:12 Pulse Ox 94 07/07/23 07:12 O2 Del Method Room Air 07/07/23 07:12 O2 Flow Rate 2 07/02/23 03:37 BMI result Body Mass Index 31.0 Appearing in no acute distress head is normocephalic atraumatic eyes pupils are PERRLA sclera is anicteric mouth throat mucous membranes are intact and moist neck is supple no lymphadenopathy, no JVD noted lung sounds are clear to auscultation heart regular rate rhythm, clear S1, S2 positive bowel sounds, abdomen is soft, nontender neuro patient is alert x3, no focal deficits, bed and chair bound, history of TBI DS: Data Data Completed and Pending Completed studies during hospitalization [Text1]: Procedures Detoxification Services for Substance Abuse Treatment (09/17/22) Excision of Descending Colon, Via Natural or Artificial Opening Endoscopic, Diagnostic (09/17/22) Excision of Sigmoid Colon, Via Natural or Artificial Opening Endoscopic, Diag nostic (09/17/22) Other Electroconvulsive Therapy (10/01/21) Discharge Plan Discharge Anticipated Discharge Date/Time: 07/07/23 10:45 Patient Disposition: Xfer Other Discharge Diagnosis: Aspiration pneumonia Severe sepsis Hematuria Urinary retention Referrals: Wilmer Enciso MD [Primary Care Provider] - 1 Week Discharge Medications: New tamsulosin 0.4 mg Capsule 0.4 mg PO BEDTIME Qty: 30 0RF Continued capsaicin 0.025 % cream 1 appl topical BEDTIME Qty: 60 2RF Rx Instructions: apply to lower back and feet nystatin 100,000 unit/gram powder 1 appl topical BEDTIME 30 Days Qty: 15 2RF Protocol: Apply to: Apply to: GROIN alprazolam 0.25 mg tablet 0.25 mg PO BID@0830,1430 Qty: 60 1RF propranolol 20 mg Tablet 20 mg PO TID 30 Days Qty: 90 2RF Protocol: Hold for SBP/HR < HOLD for SBP < : 90 HOLD for HR < : 60 acetaminophen 325 mg Tablet 650 mg PO Q6H PRN (Reason: Pain, Mild (Pain Scale 1-3)) Qty: 90 2RF alprazolam 0.5 mg Tablet 0.5 mg PO BEDTIME Qty: 30 2RF divalproex 125 mg Capsule, Delayed Rel Sprinkle 125 mg PO DAILY@1200 Qty: 30 2RF divalproex 250 mg Tablet,Delayed Release (Dr/Ec) 750 mg PO BEDTIME Qty: 90 2RF ibuprofen 600 mg Tablet 600 mg PO Q6H PRN (Reason: Pain, Moderate(Pain Scale 4-6)) Qty: 90 2RF naltrexone 50 mg Tablet 50 mg PO DAILY Qty: 30 2RF nortriptyline 75 mg capsule 75 mg PO BEDTIME 30 Days Qty: 30 2RF olanzapine 2.5 mg Tablet 2.5 mg PO BEDTIME Qty: 30 2RF trazodone 100 mg Tablet 200 mg PO BEDTIME Qty: 60 2RF Trintellix 10 mg Tablet 10 mg PO DAILY Qty: 30 2RF zolpidem 5 mg Tablet 5 mg PO BEDTIME Qty: 30 2RF fluticasone propionate 50 mcg/actuation [place],Suspension 2 spray intranasal DAILY PRN (Reason: nasal congestion) Qty: 16 1RF magnesium hydroxide [Milk of Magnesia] 400 mg/5 mL Suspension 30 ml PO BID PRN (Reason: constipation, stomach/GI upset) 30 Days Qty: 355 0RF bisacodyl [Gentle Laxative (bisacodyl)] 10 mg Suppository 10 mg [place] DAILY PRN (Reason: Constipation) 30 Days Qty: 30 2RF polyethylene glycol 3350 17 gram Powder In Packet 17 g PO DAILY PRN (Reason: Constipation) 30 Days Qty: 30 2RF clotrimazole 1 % Cream 1 appl topical BEDTIME Qty: 45 2RF Protocol: Apply to: Apply to: base of toes Rx Instructions: apply to toes bilaterally Calmol-4 76-10 % Suppository 1 supp NV BID PRN (Reason: Hemorrhoids) 30 Days Qty: 60 0RF dextromethorphan-guaifenesin 10-100 mg/5 mL Syrup 5 ml PO Q4H PRN (Reason: cough) 30 Days Qty: 100 0RF multivitamin Tablet 1 tab PO DAILY 30 Days Qty: 30 2RF latanoprost 0.005 % drops 1 drp ophthalmic (eye) BEDTIME Qty: 7.5 1RF Rx Instructions: 1 drop into both eyes amlodipine 5 mg Tablet 5 mg PO DAILY 30 Days Qty: 30 2RF Protocol: Hold for SBP< HOLD for SBP < : 90 albuterol sulfate 90 mcg/actuation HFA aerosol inhaler 180 mcg inhalation Q6H PRN (Reason: Wheezing) Qty: 6.7 1RF finasteride 5 mg tablet 1 tab PO DAILY 30 Days Qty: 30 2RF cholecalciferol (vitamin D3) [Vitamin D3] 10 mcg (400 unit) Capsule 10 mcg PO DAILY 30 Days Qty: 30 2RF ondansetron HCl 4 mg Tablet 4 mg PO Q6H PRN (Reason: Nausea And Vomiting) hydrocortisone 1 % Cream 1 appl TOPICAL BID PRN (Reason: itchy feet) Artificial Tears (PF) Dropperette 1 drp OPHTHALMIC (EYE) Q2H PRN (Reason: Dry Eyes) Rx Instructions: 1 drop into each eye sennosides [Senna Lax] 8.6 mg tablet 17.2 mg PO BEDTIME PRN (Reason: Constipation) Discharge Orders: Discharge Order (Routine); Ordered 07/07/23 Ordered By: Freda Bella Diet: Advance to usual diet Activity on Discharge: As tolerated Stand Alone Forms: Patient Portal Discharge page Care Plan Goals: Chopped diet Health Concerns: Aspiration pneumonia Severe sepsis Hematuria Urinary retention Plan of Treatment: Follow-up with primary care provider as needed Schedule outpatient modified barium swallow if patient continues to experience aspiration Take all medications as prescribed Assessment: See discharge summary
--- NOTE | 2023-07-07 11:29 | MHC.CM.PN ---
DP: IMM DELIVERED PT HAS BEEN MEDICALLY CLEARED FOR DC HOME ([facility]). [facility] MGR RACHELLE NOTIFIED. PAPERWORK COMPLETED AND DC SUMMARY ATTACHED. HCP DAWOOD JOSEPH NOTIFIED OF DC. RN AWARE. BLS TRANSPORT BOOKED FOR 1 PM VIA [facility] (ADDRESS VERIFIED WITH MGR:[id number], [place])
[2023-07-07] MEDS: Albuterol/Iprat 2.5/0.5MG 3 ML AMPUL.NEB INHALE (11:30)
[2023-07-07 11:32] VITALS: PULSE 84; RESP 18; O2SAT 95
--- NOTE | 2023-07-07 12:34 | MHC.SL.DTX ---
Dysphagia Diet modifications: Last documented Solid diet consistencies: Grnd/Mech Altered (NDD2) Last documented Liquid consistency: Thin Last documented Medication Administration: Changes made to current diet?: Yes: No changes at this time Liquid Consistency and Strategies: Liquid Intake Recommendation: Thin Compensatory Strategies for Safe Swallow: Small Sips No Straws Double Swallow Compensatory Strategies for Safe Swallow(b): Sitting Upright (90 deg) Double Swallow No Straw Small Bites and Sips Rate of Ingestion Change Avoid Specific Foods Solid Food Consistency: Dietary Recommendations: Chopped/Advanced (NDD3) Additional Modifications to Solids: Provide upper airway suctioning before meals. Add sauces and gravies and blend well. Patient is able to feed self, but due to history of impulsivity, current respiratory status, would benefit from full supervision during meals at this time. Avoid mixed textures. Cue patient to alternate bites of food with small cup sips of water. No straws. Discontinue if patient is having difficulty controlling cough while eating, or evidences clinical signs of aspiration (coughing on swallow, marked increase in upper airway noise, sustained drop in O2 sats). Do not attempt is patient is lethargic, not engaged in meal. On pill administration, follow pill in puree with sips of liquid. Oral Medication Intake: Whole with Puree Strategies and Precautions to be Taken for Safe Swallow: Sitting Upright (90 deg) Double Swallow No Straw Small Bites and Sips Rate of Ingestion Change Avoid Specific Foods Supervision While Eating and/Drinking: Total Supervision (1:1) Foods to Avoid: Mixed textures (e.g. solids in soup, cereal with milk), tough, difficult to chew solids, dry, crunchy textures. Swallowing Recommended Treatments: Compens. Strategy Educat. Level of Impact on: Daily activities: Interpersonal interactions: Education: Employment: Community: Prognosis for Improvement: Good Recommendation for Speech: Inpatient Speech Therapy Comment: Patient presents with compromised respiratory system due to heavy upper airway congestion, and has history of a mild-moderate oropharyngeal dysphagia, which was observed again today on assessment. Recommending Dysphagia Chopped/Advanced Solids (NDD3) with Thin liquids, Pills whole in puree (per patient request) followed by sips of liquid. Pt also requesting larger pills be cut or crushed. Patient is able to feed self, but due to history of impulsivity, current respiratory status, would benefit from full supervision during meals at this time. Avoid mixed textures. Cue patient to alternate bites of food with small cup sips of water. No straws. Discontinue if patient is having difficulty controlling cough while eating, or evidences clinical signs of aspiration (coughing on swallow, marked increase in upper airway noise, sustained drop in O2 sats). Do not attempt if patient is lethargic, not engaged in meal. Pt will benefit from an MBSS as an outpatient. PA, CM, RN notified. Recommend he participate in the study prior to further diet liberalization. Frequency/Duration: M-F while inpatient. Date Range for Service Req: Timeline to reassess: Additional Comments: Pt w/ hx TBI, depression, mood d/o. [facility]. Pt had MBSS 11/21/22 which revealed mild to moderate oral pharyngeal dysphagia, with pharyngeal residual noted after swallow on most food consistencies. Pt was subsequently recommended ground/mech altered (NDD2) solids and thin liquids, seen by MANAGER OF WAREHOUSE throughout his previous hospital stay and eventually upgraded to regular textures. Treatment: Pt is upset about his current diet recommendations. I won't eat it! , he exclaims at one point. I described to him the risks of aspiration and the need for caution given his medical condition and lack of mobility. He agrees to trial PO with MANAGER OF WAREHOUSE. He tolerated Puree Solids and Ground Solids with adequate oral preparation and mild residue. He tolerated Thin Liquids administered by straw and by cup with no overt s/s of aspiration. He demonstrated prolonged mastication with a regular solid (mariana cracker) with no overt s/s of aspiration. He states that he wants to return to regular solids, but agrees to slight upgrade to Chopped/Advanced with Thin Liquids today. In conversation with the PA, there are on-going concerns with his respiratory status. Hand Binder Cutter Clinican/Clinical Fellow: No Supervisory Statement: I have reviewed and agree with the student/clinical fellow's documentation: N/A Speech Language Pathologist: Enzo Ziegler M.A., [facility]-MANAGER OF WAREHOUSE
== END 2023-07-07 13:07 | disposition other institution (70) | DRG 871 ==
LOC: HO.ED 16:16 → HO.EDOVER 16:56 → HO.S3 20:06
PROVIDERS: Physician Assistant Medical; Admitting Provider Nurse Practitioner Acute Care; Emergency Provider Emergency Medicine; PCP Internal Medicine; Visit Provider Nurse Practitioner Acute Care
DX: A41.9 Sepsis, unspecified organism (principal); J69.0 Pneumonitis due to inhalation of food and vomit; J98.11 Atelectasis; F06.71 Mild neurocognitive disorder due to known physiological condition with behavioral disturbance; F33.2 Major depressive disorder, recurrent severe without psychotic features; G40.909 Epilepsy, unspecified, not intractable, without status epilepticus; R65.20 Severe sepsis without septic shock; F10.20 Alcohol dependence, uncomplicated; I10 Essential (primary) hypertension; R31.9 Hematuria, unspecified; R33.9 Retention of urine, unspecified; S06.9XAS Unspecified intracranial injury with loss of consciousness status unknown, sequela; X58.XXXS Exposure to other specified factors, sequela; Z20.822 Contact with and (suspected) exposure to COVID-19; Z87.820 Personal history of traumatic brain injury; Z79.899 Other long term (current) drug therapy
CPT/HCPCS: 0241U; 36415; 71045; 71275; 80048; 80076; 81003; 83605; 83690; 83735; 83880; 84484; 85007; 85025; 85027; 87040; 92526; 92610; 93005; 94640; 99285; C1758; J0131; J0295; J0456; J0696; J1643; J1885; J2060; J3370; Q9967

== ENCOUNTER → 2023-06-30 10:43 | Outpatient (BNV) | payer MEDICARE, MEDICAID, SELFPAY | PROVIDERS: Emergency Provider Emergency Medicine; PCP Internal Medicine; Visit Provider Nurse Practitioner Acute Care | DX: J18.9 Pneumonia, unspecified organism (principal) | CPT/HCPCS: 99223; 99232; 99233; 99239 ==

== ENCOUNTER → 2023-06-30 16:48 | Outpatient (BNV) | payer MEDICARE, MEDICAID, SELFPAY | PROVIDERS: Admitting Provider Nurse Practitioner Acute Care; Emergency Provider Emergency Medicine; PCP Internal Medicine; Visit Provider Psychiatry & Neurology Psychiatry | DX: F33.2 Major depressive disorder, recurrent severe without psychotic features (principal); J18.9 Pneumonia, unspecified organism; G31.89 Other specified degenerative diseases of nervous system; S06.9X9S Unspecified intracranial injury with loss of consciousness of unspecified duration, sequela; F09 Unspecified mental disorder due to known physiological condition; F10.20 Alcohol dependence, uncomplicated | CPT/HCPCS: 99222 ==

== ENCOUNTER 2023-07-10 11:10 | Outpatient (REF) | payer MEDICARE, MEDICAID, SELFPAY | END 2023-07-10 11:11 | disposition home or self-care (01) | LOC: HO.HAP 11:10 | PROVIDERS: Visit Provider Internal Medicine | DX: Z46.1 Encounter for fitting and adjustment of hearing aid (principal); H90.3 Sensorineural hearing loss, bilateral | CPT/HCPCS: V5266 ==

== ENCOUNTER 2023-07-10 11:16 | Outpatient (REF) | payer SELFPAY | END 2023-07-10 11:17 | disposition home or self-care (01) | LOC: HO.HAP 11:16 | PROVIDERS: Visit Provider Internal Medicine | DX: Z46.1 Encounter for fitting and adjustment of hearing aid (principal); H90.3 Sensorineural hearing loss, bilateral | CPT/HCPCS: V5267 ==

== ENCOUNTER 2023-08-04 15:07 | Outpatient (REF) | payer MEDICARE, MEDICAID, SELFPAY ==
[2023-08-04 15:47] LABS: MANUAL DIFF FLAG NO
[2023-08-04 16:20] LABS: Basophils Absolute Auto 0.1 X10*3/uL (0.0-0.2); Basophils Percent Auto 0.8 % (0-2); Eosinophils Absolute Auto 0.5 X10*3/uL (0.0-0.4); Eosinophils Percent Auto 6.3 % (0-4); Hemoglobin 14.8 g/dl (14.0-18.0); Imm Gran Abs Auto 0.06 X10*3/uL (0.00-0.03); Imm Gran Pct Auto 0.8 % (0.0-0.4); Lymphocytes Absolute Auto 2.1 X10*3/uL (1.2-4.9); Lymphocytes Percent Auto 28.8 % (20-40); Mean Corpuscular HGB Conc 33.6 g/dl (31.0-36.0); Mean Corpuscular Hemoglobin 32.7 pg (27.0-33.0); Mean Corpuscular Volume 97.3 fL (80.0-98.0); Mean Platelet Volume 10.6 fL (9.4-12.4); Monocytes Absolute Auto 0.7 X10*3/uL (0.1-1.2); Monocytes Percent Auto 9.3 % (2-11); Platelet Count 174 X10*3/uL (160-400); Red Blood Count 4.52 X10*6/uL (4.60-5.80); Red Cell Distribution Width 12.1 % (11.0-16.0); White Blood Count 7.4 X10*3/uL (4.8-10.8)
[2023-08-04 16:37] LABS: Estimated Average Glucose 88 mg/dL; Hemoglobin A1c % 4.7 % (<6.0)
[2023-08-04 16:47] LABS: Alanine Aminotransferase 61 U/L (0-40); Albumin Level 4.2 g/dL (3.5-5.0); Alkaline Phosphatase 79 U/L (39-117); Anion Gap 14 (12-20); Aspartate Amino Transferase 43 U/L (5-37); Bilirubin Total 0.5 mg/dL (0.0-1.0); Blood Urea Nitrogen 18 mg/dL (9-16); Calcium 9.8 mg/dL (8.4-10.2); Carbon Dioxide 28 mmol/L (22-29); Chloride 103 mmol/L (96-108); Estimated Glomerular Filt Rate > 60; Glucose Random 80 mg/dL (60-115); Potassium 4.6 mmol/L (3.3-5.1); Sodium 140 mmol/L (135-145); Total Protein 7.2 g/dL (6.5-8.0)
[2023-08-04 16:48] LABS: Valproate 41.8 mcg/mL (50.0-100.0)
[2023-08-08 05:08] LABS: Nortriptyline 119 mcg/L (50-150)
== END 2023-08-04 15:08 | disposition home or self-care (01) ==
LOC: HO.LAB 15:07
PROVIDERS: PCP Internal Medicine; Visit Provider Psychiatry & Neurology Psychiatry
DX: F33.2 Major depressive disorder, recurrent severe without psychotic features (principal); R53.1 Weakness; I95.9 Hypotension, unspecified; F60.9 Personality disorder, unspecified; I10 Essential (primary) hypertension; Z71.89 Other specified counseling; R53.83 Other fatigue; Z79.899 Other long term (current) drug therapy
CPT/HCPCS: 36415; 80053; 80164; 80335; 83036; 85025; 90833; 99212

== ENCOUNTER 2023-08-04 17:09 | Outpatient (AMB) | payer MEDICARE, MEDICAID, SELFPAY ==
--- NOTE | 2023-08-04 14:56 | A.OFFPSYCH_ITS ---
Intake Intake Visit Reasons: Depression Allergies fentanyl [FENTANYL] Allergy (Intermediate, Verified 06/30/23 09:56) unknown HPI- Psychiatric Chief Complaint: Depression HPI Narrative: Pt seen in f/u mood generally ok continues to be active but is having a hard time adjusting to the routine of the house again. He has difficulty being dependent on others is somewhat contemptuous regarding his description of his therapist that he has been seeing. Allegedly the patient has been irritable and sometimes reassuring and sensitive with the staff at his house. Patient did have a hospitalization few weeks ago for pneumonia. The patient according to the staff member that has brought him seems to be at Past history of prior inpatient services at this facility and others. Assessment and Plan Mental Status Exam Mental Status Exam vortioxetine added to 10 mg dose 5 mg PO DAILY 30 tabs 3RF Changed Affect: constricted HI: none VH/AH: none Delusions: none SI; none Assessment and Plan Assessment & Plan Status: Acute Code(s): Medications: (2) Personality disorder in adult: vortioxetine Plan Changed see PCP question pulmonary lower medication secondary to sedation thoughts Check labs Discontinued divalproex He does reach out when feeling unsafe and agrees to continue to do this much of difficult for him Medications: New vortioxetine added to 10 mg dose 5 mg PO DAILY 30 tabs 3RF Changed From alprazolam 0.25 mg PO BID@0830,1430 60 tabs 1RF To alprazolam 0.125 mg (1/2 x 0.25 mg) PO BID@0830,1430 60 tabs 1RF Discontinued divalproex Discontinued Reason: Doctor's Order 125 mg PO DAILY 28 caps 2RF Orders: Orders Complete Blood Count Auto Diff 08/04/23 R53.83 - Other fatigue Nortriptyline 08/04/23 F33.2 - Major depressive disorder, recurrent severe without psychotic features Hemoglobin A1c 08/04/23 R53.83 - Other fatigue, R53.1 - Weakness, I95.9 - Hypotension, unspecified Valproate 08/04/23 R53.83 - Other fatigue, R53.1 - Weakness, I95.9 - Hypotension, unspecified Comprehensive Met. Panel 08/04/23 R53.83 - Other fatigue, R53.1 - Weakness, I95.9 - Hypotension, unspecified Counseling and coordination of Care Hypertension Details-Self Mgmt counseling: Subdural hematoma of the house a few days week Depression Medication management counseling: Effectiveness and Side effects Major depressive disorder, recurrent Details: Hernia the medical record. Surgical History History of cholecystectomy H/O craniotomy H/O umbilical hernia repair stressors. 

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
== END 2023-08-04 17:09 | disposition home or self-care (01) ==
LOC: HO.HOP 17:09
PROVIDERS: PCP Internal Medicine; Visit Provider Psychiatry & Neurology Psychiatry
DX: F33.2 Major depressive disorder, recurrent severe without psychotic features (principal); F60.9 Personality disorder, unspecified
CPT/HCPCS: 90833; 99213

== ENCOUNTER 2023-08-26 11:00 | Outpatient (AMB) | payer MEDICARE, MEDICAID, SELFPAY ==
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
== END 2023-08-26 12:27 | disposition home or self-care (01) ==
LOC: HO.HOP 11:00
PROVIDERS: PCP Internal Medicine; Visit Provider Psychiatry & Neurology Psychiatry
DX: F09 Unspecified mental disorder due to known physiological condition (principal); G31.89 Other specified degenerative diseases of nervous system; S06.9X9S Unspecified intracranial injury with loss of consciousness of unspecified duration, sequela; F33.2 Major depressive disorder, recurrent severe without psychotic features; F60.9 Personality disorder, unspecified
CPT/HCPCS: 90833; 99213

== ENCOUNTER → 2023-08-26 11:00 | Outpatient (BNVA) | payer MEDICARE, MEDICAID, SELFPAY | PROVIDERS: PCP Internal Medicine; Visit Provider Psychiatry & Neurology Psychiatry | DX: F60.9 Personality disorder, unspecified (principal); F33.2 Major depressive disorder, recurrent severe without psychotic features; G31.89 Other specified degenerative diseases of nervous system | CPT/HCPCS: 90833; 99212 ==

== ENCOUNTER 2023-10-06 11:33 | Outpatient (REF) | payer MEDICARE, MEDICAID, SELFPAY ==
[2023-10-06 12:08] LABS: Basophils Percent Auto 0.7 % (0-2); Eosinophils Absolute Auto 0.3 X10*3/uL (0.0-0.4); Eosinophils Percent Auto 5.2 % (0-4); Hematocrit 43.9 % (42.0-52.0); Hemoglobin 14.8 g/dl (14.0-18.0); Imm Gran Abs Auto 0.04 X10*3/uL (0.00-0.03); Imm Gran Pct Auto 0.7 % (0.0-0.4); Lymphocytes Absolute Auto 1.6 X10*3/uL (1.2-4.9); Lymphocytes Percent Auto 26.8 % (20-40); MANUAL DIFF FLAG NO; Mean Corpuscular HGB Conc 33.7 g/dl (31.0-36.0); Mean Corpuscular Hemoglobin 31.6 pg (27.0-33.0); Mean Corpuscular Volume 93.6 fL (80.0-98.0); Mean Platelet Volume 9.8 fL (9.4-12.4); Monocytes Absolute Auto 0.6 X10*3/uL (0.1-1.2); Monocytes Percent Auto 9.4 % (2-11); Neutrophils Absolute Auto 3.4 x10*3/uL (2.0-8.3); Neutrophils Percent Auto 57.2 % (45-73); Platelet Count 180 X10*3/uL (160-400); Red Blood Count 4.69 X10*6/uL (4.60-5.80); Red Cell Distribution Width 11.5 % (11.0-16.0); White Blood Count 5.9 X10*3/uL (4.8-10.8)
[2023-10-06 12:23] LABS: Ammonia 76 umol/L (13-55)
[2023-10-06 12:29] LABS: Valproate 37.9 mcg/mL (50.0-100.0)
[2023-10-06 12:34] LABS: Alanine Aminotransferase 43 U/L (0-40); Albumin Level 4.1 g/dL (3.5-5.0); Alkaline Phosphatase 74 U/L (39-117); Anion Gap 10 (12-20); Aspartate Amino Transferase 34 U/L (5-37); Bilirubin Total 0.4 mg/dL (0.0-1.0); Blood Urea Nitrogen 20 mg/dL (9-16); Calcium 9.4 mg/dL (8.4-10.2); Carbon Dioxide 29 mmol/L (22-29); Chloride 104 mmol/L (96-108); Estimated Glomerular Filt Rate > 60; Glucose Random 82 mg/dL (60-115); Potassium 4.9 mmol/L (3.3-5.1); Sodium 138 mmol/L (135-145); Total Protein 7.1 g/dL (6.5-8.0)
[2023-10-06 12:48] LABS: TSH reflex Free T4 0.85 uIU/mL (0.32-4.0)
[2023-10-06 13:02] LABS: Folate 15.8 ng/mL (> or = 4.0); Vitamin B12 991 pg/mL (200-900)
[2023-10-10 04:54] LABS: Nortriptyline 90 mcg/L (50-150)
== END 2023-10-06 11:34 | disposition home or self-care (01) ==
LOC: HO.LAB 11:33
PROVIDERS: PCP Internal Medicine; Visit Provider Psychiatry & Neurology Psychiatry
DX: G31.89 Other specified degenerative diseases of nervous system (principal); F09 Unspecified mental disorder due to known physiological condition; S06.9X9S Unspecified intracranial injury with loss of consciousness of unspecified duration, sequela; F33.2 Major depressive disorder, recurrent severe without psychotic features; I10 Essential (primary) hypertension; Z79.899 Other long term (current) drug therapy
CPT/HCPCS: 36415; 80053; 80164; 80335; 82140; 82607; 82746; 84443; 85025; 90833; 99212

== ENCOUNTER 2023-10-06 11:33 | Outpatient (AMB) | payer MEDICARE, MEDICAID, SELFPAY ==
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
== END 2023-10-06 11:46 | disposition home or self-care (01) ==
LOC: HO.HOP 11:33
PROVIDERS: PCP Internal Medicine; Visit Provider Psychiatry & Neurology Psychiatry
DX: F33.2 Major depressive disorder, recurrent severe without psychotic features (principal); F09 Unspecified mental disorder due to known physiological condition; S06.9X9S Unspecified intracranial injury with loss of consciousness of unspecified duration, sequela; G31.89 Other specified degenerative diseases of nervous system; I10 Essential (primary) hypertension
CPT/HCPCS: 90833; 99213

== ENCOUNTER → 2023-12-04 11:32 | Outpatient (BNVA) | payer MEDICARE, MEDICAID, SELFPAY | PROVIDERS: PCP Internal Medicine; Visit Provider Psychiatry & Neurology Psychiatry ==

== ENCOUNTER 2023-12-17 17:03 | Outpatient (AMB) | payer MEDICARE, MEDICAID, SELFPAY ==
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
== END 2023-12-17 17:03 | disposition home or self-care (01) ==
LOC: HO.HOP 17:03
PROVIDERS: PCP Internal Medicine; Visit Provider Psychiatry & Neurology Psychiatry
DX: K11.7 Disturbances of salivary secretion (principal); G31.89 Other specified degenerative diseases of nervous system; F09 Unspecified mental disorder due to known physiological condition; S06.9X9S Unspecified intracranial injury with loss of consciousness of unspecified duration, sequela; F33.9 Major depressive disorder, recurrent, unspecified
CPT/HCPCS: 99213

== ENCOUNTER → 2023-12-17 17:03 | Outpatient (BNVA) | payer MEDICARE, MEDICAID, SELFPAY | PROVIDERS: PCP Internal Medicine; Visit Provider Psychiatry & Neurology Psychiatry | DX: K11.7 Disturbances of salivary secretion (principal); G31.89 Other specified degenerative diseases of nervous system; F09 Unspecified mental disorder due to known physiological condition; S06.9X9S Unspecified intracranial injury with loss of consciousness of unspecified duration, sequela; F33.9 Major depressive disorder, recurrent, unspecified | CPT/HCPCS: 99212 ==

== ENCOUNTER 2024-01-22 12:36 | Outpatient (AMB) | payer MEDICARE, MEDICAID, SELFPAY ==
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
== END 2024-01-22 12:50 | disposition home or self-care (01) ==
LOC: HO.HOP 12:36
PROVIDERS: PCP Internal Medicine; Visit Provider Psychiatry & Neurology Psychiatry
DX: F33.9 Major depressive disorder, recurrent, unspecified (principal); K11.7 Disturbances of salivary secretion; G31.89 Other specified degenerative diseases of nervous system; F09 Unspecified mental disorder due to known physiological condition; S06.9X9S Unspecified intracranial injury with loss of consciousness of unspecified duration, sequela
CPT/HCPCS: 90833; 99213

== ENCOUNTER → 2024-01-22 12:36 | Outpatient (BNVA) | payer MEDICARE, MEDICAID, SELFPAY | PROVIDERS: PCP Internal Medicine; Visit Provider Psychiatry & Neurology Psychiatry | DX: F33.9 Major depressive disorder, recurrent, unspecified (principal); F09 Unspecified mental disorder due to known physiological condition; G31.89 Other specified degenerative diseases of nervous system; S06.9X9S Unspecified intracranial injury with loss of consciousness of unspecified duration, sequela; K11.7 Disturbances of salivary secretion | CPT/HCPCS: 99212 ==

== ENCOUNTER 2024-02-04 10:33 | Outpatient (REF) | payer MEDICARE, MEDICAID, SELFPAY | END 2024-02-04 10:34 | disposition home or self-care (01) | LOC: HO.SH 10:33 | PROVIDERS: Visit Provider Physician Assistant Medical | DX: Z01.118 Encounter for examination of ears and hearing with other abnormal findings (principal); H90.A21 Sensorineural hearing loss, unilateral, right ear, with restricted hearing on the contralateral side; H90.A32 Mixed conductive and sensorineural hearing loss, unilateral, left ear with restricted hearing on the contralateral side; Z46.1 Encounter for fitting and adjustment of hearing aid | CPT/HCPCS: 92552; 92556; 92592; 99499; V5266 ==

== ENCOUNTER 2024-03-04 11:06 | Outpatient (AMB) | payer MEDICARE, MEDICAID, SELFPAY ==
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
== END 2024-03-04 11:46 | disposition home or self-care (01) ==
LOC: HO.HOP 11:06
PROVIDERS: PCP Internal Medicine; Visit Provider Psychiatry & Neurology Psychiatry
DX: F33.9 Major depressive disorder, recurrent, unspecified (principal); K11.7 Disturbances of salivary secretion; G31.89 Other specified degenerative diseases of nervous system; F09 Unspecified mental disorder due to known physiological condition; S06.9X9S Unspecified intracranial injury with loss of consciousness of unspecified duration, sequela
CPT/HCPCS: 99214

== ENCOUNTER → 2024-03-04 11:06 | Outpatient (BNVA) | payer MEDICARE, MEDICAID, SELFPAY | PROVIDERS: PCP Internal Medicine; Visit Provider Psychiatry & Neurology Psychiatry | DX: F33.9 Major depressive disorder, recurrent, unspecified (principal); K11.7 Disturbances of salivary secretion; G31.89 Other specified degenerative diseases of nervous system; F09 Unspecified mental disorder due to known physiological condition; S06.9X9S Unspecified intracranial injury with loss of consciousness of unspecified duration, sequela | CPT/HCPCS: 99212 ==

== ENCOUNTER 2024-04-22 11:01 | Outpatient (AMB) | payer MEDICARE, MEDICAID, SELFPAY ==
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
== END 2024-04-22 18:27 | disposition home or self-care (01) ==
LOC: HO.HOP 11:01
PROVIDERS: PCP Physician Assistant Medical; Visit Provider Psychiatry & Neurology Psychiatry
DX: F33.9 Major depressive disorder, recurrent, unspecified (principal); K11.7 Disturbances of salivary secretion; G31.89 Other specified degenerative diseases of nervous system; F09 Unspecified mental disorder due to known physiological condition; S06.9X9S Unspecified intracranial injury with loss of consciousness of unspecified duration, sequela
CPT/HCPCS: 99214

== ENCOUNTER → 2024-04-22 11:01 | Outpatient (BNVA) | payer MEDICARE, MEDICAID, SELFPAY | PROVIDERS: PCP Physician Assistant Medical; Visit Provider Psychiatry & Neurology Psychiatry | DX: F33.9 Major depressive disorder, recurrent, unspecified (principal); K11.7 Disturbances of salivary secretion; F09 Unspecified mental disorder due to known physiological condition; G31.89 Other specified degenerative diseases of nervous system; S06.9X9S Unspecified intracranial injury with loss of consciousness of unspecified duration, sequela | CPT/HCPCS: 99212 ==

== ENCOUNTER 2024-04-29 09:44 | Day surgery (SDC) | payer MEDICARE, MEDICAID, SELFPAY ==
--- NOTE | ~2024-04-29 | FL_ITS ---
FLUOROSCOPIC GUIDED LUMBAR PUNCTURE INDICATION: Normal pressure hydrocephalus FINDINGS/TECHNIQUE: Risks and benefits and possible complications were discussed with the patient and the consent form was signed. Patient was placed prone on the fluoroscopy table. The back was prepped and draped in routine sterile fashion. Betadine was used as a skin antiseptic. Utilizing fluoroscopic guidance, the L5-S1 interlaminar space was accessed with a 5 inch 22 gauge quinkie spinal needle and clear CSF fluid was obtained. Opening pressure was 21 cm H20 in the prone position. 10 cc of fluid was sent for analysis. The needle was removed without immediate complications. Total fluoroscopy time: 0.8 min Dose = 64.59 mGy DAP = 576 uGym2 FL/FL guided lumbar puncture LP IMPRESSION: Successful fluoroscopic assisted lumbar puncture This procedure was performed by Lalito Navarrete PA-C and supervised by Dr. Contreras.
[2024-04-29 11:06] VITALS: BMI 34.7
[2024-04-29 12:05] VITALS: BP 169/87; PULSE 65; RESP 17; TEMP 36.8; O2SAT 96
[2024-04-29 12:20] VITALS: BP 159/84; PULSE 64; RESP 16; O2SAT 96
[2024-04-29 12:47] VITALS: BP 154/78; PULSE 66; RESP 16; TEMP 37.1; O2SAT 95
[2024-04-29 12:56] LABS: Glucose CSF 53 mg/dL
[2024-04-29 13:00] LABS: CSF Appearance Clear, Colorless; CSF Tube # 1
[2024-04-29 13:19] LABS: Appearance CSF CLEAR; CSF Tube # 4; Color CSF COLORLESS; Lymphocytes CSF 100 %; Red Blood Cell CSF 1 MM*3; White Blood Cell CSF 1 MM*3
[2024-05-02 06:39] LABS: Oligoclonal Serum Yes
[2024-05-04 11:09] LABS: Albumin 4.1 g/dL (3.6-5.1); Albumin, CSF 37.1 mg/dL (8.0-42.0); IgG 752 mg/dL (600-1540); IgG Synthesis Rate -1.8 mg/24 h (-9.9-3.3); IgG, CSF 3.2 mg/dL (0.8-7.7)
[2024-05-05 18:24] LABS: Oligoclonal Banding Absent (Absent)
== END 2024-04-29 12:50 | disposition home or self-care (01) ==
PROVIDERS: Physician Assistant Surgical; PCP Internal Medicine; Visit Provider Psychiatry & Neurology Neurology
PROC: 009U3ZZ Drainage of Spinal Canal, Percutaneous Approach (ICD-10-PCS; CPT 62270; principal; 2024-04-29 11:00)
DX: G91.2 (Idiopathic) normal pressure hydrocephalus (principal); G93.89 Other specified disorders of brain; G31.9 Degenerative disease of nervous system, unspecified; Z86.79 Personal history of other diseases of the circulatory system
CPT/HCPCS: 62328; 82042; 82945; 83916; 84157; 87015; 87070; 87205; 89051

== ENCOUNTER → 2024-04-29 12:09 | Outpatient (BNV) | payer MEDICARE, MEDICAID, SELFPAY | PROVIDERS: PCP Internal Medicine; Visit Provider Physician Assistant Surgical | DX: G91.2 (Idiopathic) normal pressure hydrocephalus (principal) | CPT/HCPCS: 62328 ==

== ENCOUNTER 2024-06-17 11:46 | Outpatient (AMB) | payer MEDICARE, MEDICAID, SELFPAY ==
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
--- OUTSIDE RECORDS SUMMARY | 2024-06-17 11:48 | XMS_ITS ---
Author Organization [facility] Address [address] [place] [id number] Care Team Providers Care Wellness Program Manager Name Role Phone Wilmer Enciso MD Primary Care Provider Unavail Corbin Shore Unavailable [phone] REASON FOR VISIT SENNA MEDICATIONS Medication SIG (Take, Route, Frequency, Duration) Notes Start Date End Date Status Senna 8.6 MG 1 capsule each eveni ng Orally Once a day for 30 day(s) Active Encounters Encounter Location Date Provider Diagnosis [facility] [address] [place] [id number] 03/02/2024 Corbin Swanson PLAN OF TREATMENT Medication Medication Name Sig Start Date Stop Date Notes Senna 8.6 MG 1 capsule each eveni ng Orally Once a day for 30 day(s)
--- OUTSIDE RECORDS SUMMARY | 2024-06-17 11:48 | XMS_ITS ---
Author Organization [facility] Address [address] [place] [id number] Care Team Providers Care Parts Casting Machine Operator Name Role Phone Wilmer Enciso MD Primary Care Provider Unavail Corbin Shore Unavailable [phone] REASON FOR VISIT Abdominal pain MEDICATIONS Medication SIG (Take, Route, Frequency, Duration) Notes Start Date End Date Status Polyethylene Glycol 3350 17 GM 1 packet mixed with 8 ounces of fluid Orally Twice a day for 30 days 12/20/2023 Active Encounters Encounter Location Date Provider Diagnosis [facility] [address] [place] [id number] 01/07/2024 Corbin Swanson PLAN OF TREATMENT Medication Medication Name Sig Start Date Stop Date Notes Polyethylene Glycol 3350 17 GM 1 packet mixed with 8 ounces of fluid Orally Twice a day for 30 days 12/20/2023
--- OUTSIDE RECORDS SUMMARY | 2024-06-17 11:49 | XMS_ITS | Continuity of Care Document ---
Author Organization [facility] ter Address [address] [place] [id number]- Care Team Providers Care Rustic Fence Builder Name Role Phone Wilmer Enciso MD Primary Care Physician Encounter [facility] Date(s): 06/29/23 - 06/30/[address] [address]- Encounter Diagnosis Globus sensation(Final) - 06/30/23 Discharge Disposition: A-D/C Home Attending Physician: Mauro Gillette DO Admitting Physician: Mauro Gillette DO Referring Physician: Not on Staff, Referring MD Allergies, Adverse Reactions, Alerts Substance Reaction Severity Status fentanyl unknowm Active Medications Ativan 0.5 mg oral tablet 1 tablet = 0.5 mg, By Mouth, 3 times a day, PRN for anxiety, 0 Refills, Maintenance, 04/05/22 12:09:00 EDT, Tablet, Partial fill upon patient request if the prescription is for a schedule II opioid drug. Start Date: 04/05/22 Status: Ordered Centrum Silver Therapeutic Multiple Vitamins with Minerals oral tablet 1 tablet, By Mouth, Daily, # 30 tablet, 0 Refills, Maintenance, 10/02/19 18:15:37 EST, Tablet Start Date: 10/02/19 Status: Ordered clotrimazole 1% topical cream prn, 0 Refills, Maintenance Start Date: 04/05/22 Status: Ordered docusate sodium 100 mg oral capsule 1 capsule = 100 mg, By Mouth, PRN as needed for constipation, 0 Refills, Maintenance, 03/30/13 11:11:33 EDT, Capsule Start Date: 03/30/13 Status: Ordered Fleet Enema Rectally, Once, PRN as needed for constipation, 0 Refills, Maintenance, 04/05/22 12:10:00 EDT, Partial fill upon patient request if the prescription is for a schedule II opioid drug. Start Date: 04/05/22 Status: Ordered HydroCORTisone 1% Topical 1 application, Topically, PRN Rash, 0 Refills, Maintenance, Cream Start Date: 04/05/22 Status: Ordered hydrOXYzine hydrochloride 25 mg oral tablet 1 tablet = 25 mg, By Mouth, 4 times a day, PRN for anxiety, # 40 tablet, 0 Refills, Maintenance, 04/05/22 12:09:00 EDT, Tablet, Partial fill upon patient request if the prescription is for a scheduleII opioid drug. Start Date: 04/05/22 Status: Ordered ibuprofen 400 mg oral tablet 400 mg, 1, tablet, By Mouth, Every 4 hours, PRN, # 60 tablet, Refills 0, Maintenance, for fever, 04/05/22 12:11:00 EDT, Partial fill upon patient request if the prescription is for a schedule II opioid drug. Start Date: 04/05/22 Status: Ordered LaMICtal 200 mg oral tablet 1 tablet = 200 mg, By Mouth, 2 times a day, # 60 tablet, 0 Refills, Maintenance, 04/05/22 12:00:00 EDT, Tablet, Partial fill upon patient request if the prescription is for a schedule II opioid drug. Start Date: 04/05/22 Status: Ordered lidocaine 5% topical film 1 patch, Topically, Daily, PRN Pain , Mild, remove after 12 hours, # 13 each, 0 Refills, Maintenance, 04/05/22 12:12:00 EDT, Film, Partial fill upon patient request if the prescription is for a schedule II opioid drug. Start Date: 04/05/22 Status: Ordered Melatonin 5 mg oral tablet 1 tablet = 5 mg, By Mouth, Daily at bedtime, PRN for insomnia, # 60 tablet, 0 Refills, Maintenance,04/05/22 12:03:00 EDT, Tablet, Partial fill upon patient request if the prescription is for a schedule II opioid drug. Start Date: 04/05/22 Status: Ordered Milk of Magnesia By Mouth, Daily at bedtime, 0 Refills, Maintenance, 04/05/22 12:11:00 EDT, Partial fill upon patient request if the prescription is for a schedule II opioid drug. Start Date: 04/05/22 Status: Ordered MiraLax = 17 Gm, By Mouth, PRN Constipation, PRN, 0 Refills, Maintenance, 04/16/21 1:10:00 EDT, Partial fill upon patient request if the prescription is for a schedule II opioid drug. Start Date: 04/16/21 Status: Ordered MiraLax = 17 Gm, By Mouth, Daily, 0 Refills, Maintenance, 04/05/22 12:01:00 EDT, Partial fill upon patient request if the prescription is for a schedule II opioid drug. Start Date: 04/05/22 Status: Ordered Neurontin 400 mg oral capsule 400 mg, 1, capsule, By Mouth, 3 times a day, # 120 capsule, Refills 0, Maintenance, 04/05/22 12:02:00 EDT, Partial fill upon patient request if the prescription is for a schedule II opioid drug. Start Date: 04/05/22 Status: Ordered none none, See Instructions, # 1 case, Refills 0, Tot. Refills 0, Maintenance, one adult walker with wheels for poor mobility., 08/15/11 15:24:24 Start Date: 08/15/11 Status: Ordered Nortriptyline = 125 mg, By Mouth, Daily at bedtime, 0 Refills, Maintenance, 04/05/22 12:08:00 EDT, Partial fill upon patient request if the prescription is for a schedule II opioid drug. Start Date: 04/05/22 Status: Ordered Norvasc 5 mg oral tablet 5 mg, 1, tablet, By Mouth, Daily, # 30 tablet, Refills 0, Maintenance, 04/05/22 11:57:00 EDT, Partial fill upon patient request if the prescription is for a schedule II opioid drug. Start Date: 04/05/22 Status: Ordered Pepcid 20 mg oral tablet 1 tablet = 20 mg, By Mouth, 2 times a day, # 60 tablet, 0 Refills, Maintenance, 04/05/22 12:00:00 EDT, Tablet, Partial fill upon patient request if the prescription is for a schedule II opioid drug. Start Date: 04/05/22 Status: Ordered pramipexole 0.125 mg oral tablet 1 tablet = 0.125 mg, By Mouth, 3 times a day, # 90 tablet, 5 Refills, Maintenance, 04/05/22 11:56:00 EDT, Tablet, Partial fill upon patient request if the prescription is for a schedule II opioid drug. Start Date: 04/05/22 Status: Ordered Proscar 5 mg oral tablet 1 tablet = 5 mg, By Mouth, Daily, # 30 tablet, 0 Refills, Maintenance, 04/05/22 11:57:00 EDT, Tablet, Partial fill upon patient request if the prescription is for a schedule II opioid drug. Start Date: 04/05/22 Status: Ordered SEROquel 100 mg oral tablet 100 mg, 1, tablet, By Mouth, Daily at bedtime, Refills 0, Maintenance, 04/05/22 12:06:00 EDT, Partial fill upon patient request if the prescription is for a schedule II opioid drug. Start Date: 04/05/22 Status: Ordered SEROquel 25 mg oral tablet 25 mg, 1, tablet, By Mouth, Daily in AM, # 30 tablet, Refills 0, Maintenance, 04/05/22 11:58:00 EDT, Partial fill upon patient request if the prescription is for a schedule II opioid drug. Start Date: 04/05/22 Status: Ordered SEROquel 25 mg oral tablet 25 mg, 1, tablet, By Mouth, PRN, Refills 0, Maintenance, Anxiety, 04/05/22 12:12:00 EDT, Partial fill upon patient request if the prescription is for a schedule II opioid drug. Start Date: 04/05/22 Status: Ordered SEROquel 50 mg oral tablet 1 tablet = 50 mg, By Mouth, Daily, in afternoon, # 30 tablet, 0 Refills, Maintenance, 04/05/22 11:58:00 EDT, Tablet, Partial fill upon patient request if the prescription is for a schedule II opioid drug. Start Date: 04/05/22 Status: Ordered Trazodone = 250 mg, By Mouth, Daily at bedtime, 0 Refills, Maintenance, 04/05/22 12:07:00 EDT, Partial fill upon patient request if the prescription is for a schedule II opioid drug. Start Date: 04/05/22 Status: Ordered traZODone 50 mg oral tablet 50 mg, 1, tablet, By Mouth, PRN, Refills 0, Maintenance, Anxiety, 04/05/22 12:13:00 EDT, Partial fill upon patient request if the prescription is for a schedule II opioid drug. Start Date: 04/05/22 Status: Ordered Tylenol 8 Hour 650 mg oral tablet, extended release 1 tablet = 650 mg, By Mouth, Every 8 hours, PRN as needed for pain, # 50 tablet, 0 Refills, Maintenance, 04/05/22 12:18:00 EDT, ER Tablet, Partial fill upon patient request if the prescription is fora schedule II opioid drug. Start Date: 04/05/22 Status: Ordered Ventolin 90 mcg Inhaler 2, puffs, Inhalation, Every 4 hours, Refills 0, Maintenance, 04/05/22 12:17:00 EDT, Inhaler Start Date: 04/05/22 Status: Ordered Vitamin D3 400 intl units oral capsule 1 capsule = 10 mcg, By Mouth, Daily, 0 Refills, Maintenance, 04/05/22 12:00:00 EDT, Partial fill upon patient request if the prescription is for a schedule II opioid drug. Start Date: 04/05/22 Status: Ordered vortioxetine 10 mg oral tablet 1 tablet = 10 mg, By Mouth, Daily, # 30 tablet, 0 Refills, Maintenance, 04/05/22 11:57:00 EDT, Tablet, Partial fill upon patient request if the prescription is for a schedule II opioid drug. Start Date: 04/05/22 Status: Ordered Xalatan 0.005% solution 1 drops, Eyes, Both, Daily at bedtime, # 3 mL, 0 Refills, Maintenance, 04/05/22 12:06:00 EDT, OphthSolution, Partial fill upon patient request if the prescription is for a schedule II opioid drug. Start Date: 04/05/22 Status: Ordered Zeasorb-AF 2% powder 1 application, Topically, 2 times a day, # 70 Gm, 0 Refills, Maintenance, 04/05/22 12:00:00 EDT, Powder, Partial fill upon patient request if the prescription is for a schedule II opioid drug. Start Date: 04/05/22 Status: Ordered Zestril 20 mg oral tablet 20 mg, 1, tablet, By Mouth, Daily, # 30 tablet, Refills 0, Maintenance, 04/05/22 12:00:00 EDT, Partial fill upon patient request if the prescription is for a schedule II opioid drug. Start Date: 04/05/22 Status: Ordered Problem List Condition Confirmation Course Effective Dates Status Health St atus Informant Obese class I Confirmed Active Results Radiology Reports * Exam Date Time Procedure Performing Provider Status 06/30/23 3:03 AM Chest 2 Views Frontal and Lat Yancy Cotter; [place] (Verified) Notes: (Chest 2 Views Frontal and Lat) Reason For Exam: aspiration;Other: RESULT: Chest 2 Views Frontal and Lat Examination: Chest performed on 06/30/2023. History: Possible aspiration. Findings: Frontal and lateral views of the chest are compared to a prior study dated 06/12/2020. The cardiac and mediastinal silhouettes are within normal limits. Low lung volumes are present withbibasilar atelectasis. The osseous and soft tissue structures are unremarkable. Impression: There is no acute cardiopulmonary disease. WSN: [id number] Ordering Physician: Meek Cerrato Dictated By: Delmy Bonds MD Dictated Date/Time: 06/30/23 7:31 am Reviewed By: Delmy Bonds MD Signed By: Delmy Bonds MD Signed Date/Time: 06/30/23 7:31 am Transcribed By: SILVIO Transcribed Date/Time: 06/30/23 7:30 am * Exam Date Time Procedure Performing Provider Status 06/30/23 3:[address] Chest W/ Contrast Gume Mane; Au th (Verified) Notes: (CT Chest W/ Contrast) Reason For Exam: FB in esophagus;Dysphagia RESULT: CT Chest W/ Contrast CT Chest W/ Contrast INDICATION: Patient presents to the ED from [facility] with concern for aspiration. Patient was given nightime meds at facility, was unable to swallow them, took drink of water, was laid down, choked; Reason: Dysphagia; Clinical Question(s): Foreign Body. TECHNIQUE: Helical CT scan of the chest with IV contrast, formatted in 3 planes. 100 cc of Omnipaque 300 was administered intravenously. Weight-based protocol was performed using automatic exposure control. CTDIvol Body: 14.20 mGy, DLP Body: 588 mGy*cm. COMPARISON: CT angiogram chest 10/02/2019. FINDINGS: Chicken Handler view findings, lines and tubes: None. Trachea and airways: Patent without evidence of tracheal or endobronchial lesion. Lungs and pleura: Mild bibasilar atelectasis. No effusion or pneumothorax. Asymmetric elevation of the right hemidiaphragm. Calcified pulmonary granulomas. Mediastinum and yesenia: No mass or hematoma. No mediastinal or hilar lymphadenopathy. Esophagus is mildly patulous. No thyroid nodule large enough to warrant follow up. Mildly prominent lymph node at the right thoracic inlet at series 201 image 28, high right paratracheal. This is increased in size from 2019. Heart: Cardiomegaly with left ventricular myocardial hypertrophy and biventricular enlargement. Left ventricular apical prior likely infarct. No pericardial effusion. Moderate coronary artery calcification. Aorta: Moderate vascular calcification but no aneurysm. Pulmonary arteries: Normal caliber. No evidence of pulmonary embolism on this study performed without angiographic technique. Chest wall soft tissues: No acute abnormality. Diaphragm: Intact. Upper abdomen: There is cirrhotic appearance of the liver. Limited evaluation for lesions on singlephase exam without focal mass detected within this limitation. There has been previous cholecystectomy. Granuloma in the spleen. Mildly enlarged spleen. Bones: Mild chronic appearing compression fractures of T11 and T12. Bones are diffusely osteopenic. IMPRESSION: No evidence of foreign object in the esophagus. No evidence of acute abnormality. I have personally reviewed the images and I agree with this report. WSN: [id number] Ordering Physician: Meek Cerrato Dictated By: Marco A Esparza MD Dictated Date/Time: 06/30/23 8:13 am Reviewed By: Meka Hale MD Signed By: Meka Hale MD Signed Date/Time: 06/30/23 8:18 am Transcribed By: SILVIO Transcribed Date/Time: 06/30/23 8:07 am Vital Signs Most recent to oldest [Reference Range]: 1 2 Oxygen Saturation [94-100 %] 98 % (06/30/23 4:03 AM) 97 % (06/29/23 11:55 PM) Pulse Rate [55-90 bpm] 78 bpm (06/30/23 4:03 AM) 65 bpm (06/29/23 11:55 PM) Blood Pressure [90-138/55-84 mm Hg] 166/ 88mm Hg *H* (06/30/23 4:03 AM) 174/96mm Hg *H* (06/29/23 11:55 PM) Respiratory Rate [16-30 br/min] 18 br/mi n (06/30/23 4:03 AM) 20 br/min (06/29/23 11:55 PM) Temperature [96.8-100.4 DegF] 98.4 DegF (06/30/23 4:03 AM) 98.1 DegF (06/29/23 11:55 PM) Mode of Delivery (Oxygen) Room air (06/30/23 4:03 AM) Room air (06/29/23 11:55 PM) Blood pressure sites Arm, left (06/30/23 4:03 AM) Arm, left (06/29/23 11:55 PM) Temperature Route Oral (06/30/23 4:03 AM) Oral (06/29/23 11:55 PM) Social History Social History Type Response Tobacco Use: pt denies. Sex Patient Care team information Care Team Personnel Name: Christine RN, Tavo [place] Position: [facility] RN Member Role: Primary Care Nurse Name: Kiya Villasenor RN Position: [facility] RN Member Role: Primary Care Nurse Name: Nishi Santiago RN Position: [facility] SN RN Member Role: Primary Care Nurse Name: Wilmer Enciso MD Position: [facility] Physician - Primary Care Member Role: PCP Address: Address: [address] [place] [address], [address] [place], [place] [address] Name: Josh Johnson Position: [facility] Outreach Member Role: Lifetime Consulting Physician Name: Carine Booth Position: [facility] AMB [place] Member Role: Primary Care Nurse Name: Meek Cerrato DO Position: [facility] Resident Member Role: ED Resident Address: Address: [address] [place] [address] Emergency Medicine [address] Name: Vickie Downing Position: [facility] ED TA [facility] Member Role: Patient Care Provider Name: Katelyn Cruz RN Position: [facility] ED RN W/OE and Tasks Member Role: Patient Care Provider Name: Mauro Gillette DO Position: [facility] Resident Member Role: Admitting Physician Address: Address: [address] [place] [address] Dept of Emergency Medicine [place], [place] [address] Care Team Related Persons Name: YUVAL MANN Address: home [address] [place] [id number] Name: DAWOOD JOSEPH Name: PERI STONE Address: home UNKNOWN
--- OUTSIDE RECORDS SUMMARY | 2024-06-17 11:49 | XMS_ITS ---
Author Organization [facility] Address [address] [place] [id number] Care Team Providers Care Bullet Casting Operator Name Role Phone Wilmer Enciso MD Primary Care Provider Unavail Corbin Shore Unavailable [phone] MEDICATIONS Medication SIG (Take, Route, Frequency, Duration) Notes Start Date End Date Status Polyethylene Glycol 3350 17 GM 1 packet mixed with 8 ounces of fluid Orally Once a day for 30 day(s) 12/20/2023 Active Encounters Encounter Location Date Provider Diagnosis [facility] [address] [place] [phone] 12/20/2023 Corbin Swanson PLAN OF TREATMENT Medication Medication Name Sig Start Date Stop Date Notes Polyethylene Glycol 3350 17 GM 1 packet mixed with 8 ounces of fluid Orally Once a day for 30 day(s) 12/20/2023
== END 2024-06-17 11:48 | disposition home or self-care (01) ==
LOC: HO.HOP 11:46
PROVIDERS: PCP Internal Medicine; Visit Provider Psychiatry & Neurology Psychiatry
DX: F33.9 Major depressive disorder, recurrent, unspecified (principal); G31.89 Other specified degenerative diseases of nervous system; F09 Unspecified mental disorder due to known physiological condition; S06.9X9S Unspecified intracranial injury with loss of consciousness of unspecified duration, sequela
CPT/HCPCS: 99214

== ENCOUNTER → 2024-06-17 11:46 | Outpatient (BNVA) | payer MEDICARE, MEDICAID, SELFPAY | PROVIDERS: PCP Internal Medicine; Visit Provider Psychiatry & Neurology Psychiatry | DX: G31.89 Other specified degenerative diseases of nervous system (principal); F33.9 Major depressive disorder, recurrent, unspecified; F09 Unspecified mental disorder due to known physiological condition; S06.9X9D Unspecified intracranial injury with loss of consciousness of unspecified duration, subsequent encounter | CPT/HCPCS: 99212 ==

== ENCOUNTER 2024-08-19 12:04 | Outpatient (AMB) | payer MEDICARE, MEDICAID, SELFPAY ==
--- OUTSIDE RECORDS SUMMARY | 2024-08-19 12:05 | XMS_ITS ---
Author Organization [facility] Address [address] [place] [phone] Care Team Providers Care Temporary Office Assistant Name Role Phone Wilmer Enciso MD Primary Care Provider Unavail Corbin Shore Unavailable [phone] REASON FOR VISIT Refilled PEG Rx MEDICATIONS Medication SIG (Take, Route, Frequency, Duration) Notes Start Date End Date Status Polyethylene Glycol 3350 17 GM 1 packet mixed with 8 ounces of fluid Orally Twice a day for 30 days 12/20/2023 Active Encounters Encounter Location Date Provider Diagnosis [facility] [address] [place] [phone] 07/27/2024 Corbin Swanson PLAN OF TREATMENT Medication Medication Name Sig Start Date Stop Date Notes Polyethylene Glycol 3350 17 GM 1 packet mixed with 8 ounces of fluid Orally Twice a day for 30 days 12/20/2023
--- OUTSIDE RECORDS SUMMARY | 2024-08-19 12:05 | XMS_ITS ---
Author Organization [facility] Address [address] [place] [phone] Care Team Providers Care Block Cableman Name Role Phone Wilmer Enciso MD Primary Care Provider Unavail able Corbin Swanson Unavailable [phone] REASON FOR VISIT MiraLax refilled per Tomas request MEDICATIONS Medication SIG (Take, Route, Frequency, Duration) Notes Start Date End Date Status Polyethylene Glycol 3350 17 GM 1 packet mixed with 8 ounces of fluid Orally Twice a day for 30 days 12/20/2023 Active Encounters Encounter Location Date Provider Diagnosis [facility] [address] [place] [phone] 06/24/2024 Corbin Swanson PLAN OF TREATMENT Medication Medication Name Sig Start Date Stop Date Notes Polyethylene Glycol 3350 17 GM 1 packet mixed with 8 ounces of fluid Orally Twice a day for 30 days 12/20/2023
--- OUTSIDE RECORDS SUMMARY | 2024-08-19 12:05 | XMS_ITS | Continuity of Care Document ---
Author Organization [facility] Address [address] [place] [address]- Care Team Providers Care Hvac Services Professional Name Role Phone Wilmer Enciso MD Primary Care Physician Encounter [facility] Date(s): 07/17/24 - 07/17/[address] [address]- Encounter Diagnosis Abdominal pain(Final) - 07/17/24 Discharge Disposition: A-D/C Home Attending Physician: Serge Meehan MD Admitting Physician: Serge Meehan MD Referring Physician: Not on Staff, Referring MD [...] opioid drug. Start Date: 04/05/22 Status: Ordered MorPHINE Inj 4 mg, Injection, IV Push Slowly, Every 5 minutes for 3 doses/times, PRN for Pain , Moderate, and SBP greater than 100, Routine, 07/17/24 16:48:00 EDT, Stop date Limited # of times Start Date: 07/17/24 Status: Ordered Neurontin 400 mg oral capsule [...] Exam Date Time Procedure Performing Provider Status 07/17/24 5:[address] Abd/Pelvis W/ IV Contrast Only Rick Thomas T; Auth (Verified) Notes: (CT Abd/Pelvis W/ IV Contrast Only) Reason For Exam: LLQ abdominal pain;Other: RESULT: CT Abd/Pelvis W/ IV Contrast Only CT Abd/Pelvis W/ IV Contrast Only Hx of Present Illness: [facility], wheelchair bound at baseline. Now c o weakness x1 week w n v x2 days and poor PO intake. taking zofran at home w o relief; Reason: Other:; LLQ abdominal pain; Clinical Question(s): Diverticulitis; Order Comment: Patient unable to tolerate PO contrast. TECHNIQUE: Spiral CT through the abdomen and pelvis with IV contrast formatted in 3 planes. 100 cc of Omnipaque 300 was administered intravenously. This study was performed without oral contrast. Weight-based protocol using automatic tube modulation was used to optimize exposure parameters. CTDIvol Body: 23.70 mGy, DLP Body: 1460 mGy*cm. COMPARISON: None. FINDINGS: Product Developer View Findings, Lines and Tubes: None. Visualized Chest: Elevated right hemidiaphragm with some atelectatic changes at both lung bases, right greater than left. No pleural effusion. The heart is normal in size. No pericardial effusion. Diaphragm: Intact. Liver: Cirrhotic morphology liver without focal mass. Gallbladder: Absent consistent with prior cholecystectomy. Bile ducts: No biliary ductal dilation. Spleen: Normal. Pancreas: Normal. Adrenal glands: Normal. Kidneys and ureters: No hydronephrosis, stones, or suspicious masses. 3 mm nonobstructing calculus at the lower pole of left kidney. Small bilateral cysts are noted. Bladder: Normal. Reproductive organs: Unremarkable. Stomach, small bowel, and large bowel: There is no evidence for bowel obstruction. There is no bowel wall thickening to indicate acute diverticulitis or colitis. Appendix: A normal appendix is seen. Peritoneum and retroperitoneum: No ascites or pneumoperitoneum. No omental or mesenteric lesions. Lymph nodes: No enlarged lymph nodes. Blood vessels: Normal. No aneurysm. No evidence of venous thrombosis. Abdominal and pelvic wall: Unremarkable. Bones: No acute abnormality. Intact left total hip arthroplasty. There is severe joint space narrowing at the right hip. Unchanged mild chronic compression fractures at T10, T11 and L3. IMPRESSION: No acute intra-abdominal pathology. Cirrhosis. No liver mass or ascites. Unchanged mild chronic compression fractures. WSN: [id number] Ordering Physician: Serge Meehan Dictated By: Jack Don MD Dictated Date/Time: 07/17/24 6:36 pm Reviewed By: Jack Don MD Signed By: Jack Don MD Signed Date/Time: 07/17/24 6:36 pm Transcribed By: SILVIO Transcribed Date/Time: 07/17/24 6:27 pm Vital Signs Most recent to oldest [Reference Range]: 1 2 3 Height 170 cm (07/17/24 7:14 PM) 170 cm (07/17/24 4:09 PM) Weight 89 kg (07/17/24 7:14 PM) 89 kg (07/17/24 4:09 PM) Oxygen Saturation [94-100 %] 94 % (07/17/24 11:00 PM) 93 % *L* (07/17/24 7:14 PM) 93 % *L* (07/17/24 4:20 PM) Pulse Rate [55-90 bpm] 68 bpm (07/17/24 11:00 PM) 65 bpm (07/17/24 7:14 PM) 74 bpm (07/17/24 4:20 PM) Body Mass Index [18.5-24.99 kg/m2] 30.8 kg/m2 *>HHI* (07/17/24 7:14 PM) Blood Pressure [90-138/55-84 mm Hg] 150/75mm Hg *H* (07/17/24 11:00 PM) 153/71mm Hg *H* (07/17/24 7:14 PM) 159/89mm Hg *H* (07/17/24 4:20 PM) Respiratory Rate [16-30 br/min] 20 br/min (07/17/24 11:00 PM) 18 br/min (07/17/24 7:14 PM) 18 br/min (07/17/24 7:10 PM) Temperature [96.8-100.4 DegF] 98.1 DegF (07/17/24 7:14 PM) 98.8 DegF (07/17/24 4:20 PM) Mode of Delivery (Oxygen) Room air (07/17/24 11:00 PM) Room air (07/17/24 7:14 PM) Room air (07/17/24 4:20 PM) Blood pressure sites Arm, left (07/17/24 11:00 PM) Arm, left (07/17/24 7:14 PM) Arm, left (07/17/24 4:20 PM) Temperature Route Oral (07/17/24 7:14 PM) Oral (07/17/24 4:20 PM) Dry Weight 89 kg (07/17/24 7:14 PM) 89 kg (07/17/24 4:09 PM) Social History Social History Type Response Tobacco Use: pt denies. Sex Note * Shefali GAINES, Serge Ortiz: PERFORM Event Display: Patient Education Leaflets Authored Date: [id number] Viral Gastroenteritis (Adult) ?? [id number] Viral Gastroenteritis (Adult) Gastroenteritis is often called the stomach flu. But it has nothing to do with influenza. It's mostoften caused by a virus that affects the stomach and intestinal tract. Most bouts last from 2 to 7 days. Common viruses causing gastroenteritis include norovirus, rotavirus, and hepatitis A. Nonviralcauses of gastroenteritis include bacteria, parasites, and toxins. The danger from repeated vomiting or diarrhea is dehydration. This is when the body loses too??muchfluid. When this occurs, you must replace the body fluids. Antibiotics aren't an effective treatment for this condition because it's caused by a virus. Symptoms of viral gastroenteritis may include: ??? Watery, loose stools ??? Stomach pain or belly (abdominal) cramps ??? Fever and chills ??? Nausea and vomiting ??? Loss of bowel control ??? Headache Home care Gastroenteritis is spread by contact with the stool or vomit of an infected person. This can occur from person to person or from contact with a contaminated surface. Follow these guidelines when caring for yourself at home: ??? If symptoms are severe, rest at home for the next 24 hours or until you are feeling better. ???Wash your hands with soap and clean, running water or use alcohol-based fuel quality tech to prevent the spread of infection. Wash your hands after touching anyone who is sick. ??? Wash your hands or use alcohol-based fuel quality tech after using the toilet and before meals. Clean the toilet after each use. Remember these tips when preparing food: ??? People with diarrhea should not prepare or serve food??to others. When preparing foods, wash your hands before and after. ??? Wash your hands after using cutting boards, counter tops, knives, or utensils??that have been in contact with raw food. ??? Dry your hands with a single-use disposable towel. ??? Keep uncooked meats away from cooked and nbyhx-ok-ogb foods. Medicine Use acetaminophen or nonsteroidal anti-inflammatory drugs (NSAID) such as ibuprofen or naproxen to control fever, unless another medicine was given. If you have chronic liver or kidney disease, talk with your healthcare provider before using these medicines. Also talk with your provider if you've??had a stomach ulcer or??gastrointestinal bleeding. Don't give aspirin??to anyone under 18 years of age who is ill with a fever. It may result in a serious illness called Yeyo syndrome that may cause severe liver damage or even . Don't use NSAIDS if you're already taking one for another condition (like arthritis) or are on aspirin (such as for heart disease or after a stroke). If medicines for vomiting or diarrhea are prescribed, take these only as directed. Nausea and diarrhea medicines are generally OK unless you have bleeding, fever, or severe abdominal pain. Diet Follow these guidelines for??food: ??? Water and liquids are important so you don't get dehydrated. Drink small amounts often or suck on ice chips as tolerated if you are vomiting. ??? If you eat, stay away from fatty, greasy, spicy, or fried foods. ??? Don't eat dairy if you have diarrhea. This can make diarrhea worse. ??? Avoid tobacco, alcohol, and caffeine. These may worsen symptoms. During the first 24 hours (the first full day), follow the diet below: ??? Beverages. Sip sports drinks, soft drinks without caffeine, juana charlee, mineral water (plain orflavored), decaffeinated tea and coffee. If you are very dehydrated, sports drinks aren't a good choice. They have too much sugar and not enough electrolytes. In this case, use products called oral rehydration solutions. You can buy these at pharmacies and grocery stores. ??? Soups. Eat clear broth, consomm??, and bouillon. ??? Desserts. Eat gelatin, ice pops, and fruit juice bars. During the next 24 hours (the second day), you may add the following to the above: ??? Hot cereal, plain toast, bread, rolls, and crackers ??? Plain noodles, rice, mashed potatoes, chicken noodle or rice soup ??? Unsweetened canned fruit (avoid pineapple), bananas ??? Limit fat intake to less than 15 grams per day. Do this by avoiding margarine, butter, oils, mayonnaise, sauces, gravies, fried foods, peanut butter, meat, poultry, and fish. ??? Limit fiber and avoid raw or cooked vegetables, fresh fruits (except bananas), and bran cereals. ??? Limit caffeine and chocolate. Don't use spices or seasonings other than salt. ??? Limit dairy products. ??? Avoid alcohol. During the next 24 hours: ??? Gradually resume a normal diet as you feel better and your symptoms improve. ??? If at any time it starts getting worse again, go back to clear liquids until you feel better. ?? Follow-up care Follow up with your healthcare provider, or??as advised. Call your provider if you don't get betterwithin 24 hours or if diarrhea lasts more than a few days. It's also important to follow up if you can't keep down liquids, which can lead to becoming dehydrated. If a stool (diarrhea) sample was taken, call as directed for the results. ?? Call 911 Call 911 if any of these occur: ??? Trouble breathing ??? Chest pain ??? Confused ??? Severe drowsiness or trouble awakening ??? Fainting or loss of consciousness ??? Rapid heart rate ??? Seizure ???Stiff neck ?? When to get medical advice Call your healthcare provider right away if any of these occur: ??? Abdominal pain that gets worse ??? Continued vomiting (can't keep liquids down) ??? Frequent diarrhea (more than 5 times a day) ???Blood in vomit or stool (black or red color) ??? Dark urine, reduced urine output, or extreme thirst ??? Weakness or dizziness ??? Drowsiness ??? Fever of 100.4??F (38??C)??or higher, or as advised by your provider ??? New rash ?? Last Reviewed Date: 2022 ?? 8531-6370 [employer]. All rights reserved. This information is not intended as a substitute for professional medical care. Always follow your healthcare professional's instructions. ?? Patient Care team information Care Team Personnel Name: Christine GARCIA, Tavo Clayton Position: [facility] RN Member Role: Primary Care Nurse Name: Kiya Villasenor RN Position: [facility] RN Member Role: Primary Care Nurse Name: Nishi Santiago RN Position: [facility] Nurse Member Role: Primary Care Nurse Name: Wilmer Enciso MD Position: [facility] Physician - Primary Care Member Role: PCP Address: Address: [address] [place] [address], [address] [place] [address]- Name: Josh Johnson Position: [facility] Outreach Member Role: [employer] Physician Name: Carine Booth Position: [facility] AMB [place] Member Role: Primary Care Nurse Care Team Related Persons Name: YUVAL MANN Address: home [address] [place] [address] Name: DAWOOD JOSEPH Name: PERI STONE Address: home UNKNOWN
--- OUTSIDE RECORDS SUMMARY | 2024-08-19 12:06 | XMS_ITS | Patient Health Record ---
Author Organization [facility] Address [address] [place] [phone] Care Team Providers Care Employment Adjudicator Name Role Phone Wilmer Enciso MD Primary Care Provider Unavail able Corbin Swanson Unavailable [phone] ALLERGIES Allergen (clinical drug ingredient) Drug/Non Drug Allergy documented on EMR Reaction Allergy Type Onset Date Status fentanyl Fentanyl Unknown Drug Allergy Active REASON FOR REFERRAL No Information MEDICATIONS Medication SIG (Take, Route, Frequency, Duration) Notes Start Date End Date Status Ondansetron HCl 4 MG 1 tablet Orally Onc e a day for 30 day(s) Active Hydrocortisone 1 % 1 application Paste Mixer Liquid ally Once a day Active hydrOXYzine HCl 25 MG 1 tablet as needed Orally Once a day for 30 day(s) Active Naltrexone HCl 50 MG 1 tablet Orally Onc e a day for 30 day(s) Active Guaifenesin DM Cough & Chest Active ALPRAZolam 0.5 MG 1 tablet Orally Twic e a day Active OLANZapine 2.5 MG 1 tablet Orally Once a day for 30 day(s) Active Finasteride 5 MG Oral for 30 A ctive Zolpidem Tartrate 5 MG 1 tablet under th e tongue and allow to dissolve at bedtime as needed Sublingual Once a day Active Proscar 5 MG 1 tablet Orally Once a day Active Senna 8.6 MG 2 Tablets Orally At 8:00 PM for 30 day(s) 12/08/2023 Active Centrum Silver - one tablet Orally on ce a day Active amLODIPine Benzoate 1 MG/ML 5 ml Orally Once a day Active Ibuprofen 800 MG 1 tablet with food o r milk as needed Orally every 8 hrs Active QUEtiapine Fumarate 75 mg 1 tablet Orall y twice a day Active LaMICtal 150 MG 1 tablet Orally Twic e a day Active Sinemet 25-100 MG 1 tablet Orally Thre e times a day Active Nortriptyline HCl 75 MG as directed Orally Active Xalatan 0.005 % 1 drop into affected eye in the evening Ophthalmic Once a day Active Melatonin 5 MG Oral for 30 Act sade Polyethylene Glycol 3350 17 GM 1 packet mixed with 8 ounces of fluid Orally Twice a day for 30 days 12/20/2023 Active Ativan 0.5 MG 1 tablet as needed O rally twice a day Active Tylenol 8 Hour 650 MG 1 tablet as needed Orally every 8 hrs Active MiraLax 17 GM/SCOOP 1 scoop with 17 GM O rally daily at 4PM on a daily and regular basis, and then also QAM as needed for constipation in addition to the 4PM dose if needed for 30 days 04/01/2022 Active traZODone HCl 150 MG 1 tablet at bedtime Orally hs Active Trintellix 20 MG 1 tablet Orally Once a day Active GNP Natural Fiber 0.52 GM Oral for 28 Active Anusol-HC 2.5 % 1 application Paste Mixer Liquid ally Twice a day Active MiraLax - 1 packet mixed with 8 ounces of fluid Orally Once a day Active Propranolol HCl 20 MG/5ML 5 mL Orally On ce a day for 30 day(s) Active Lidocaine 5 % 1 patch to skin mina ve after 12 hours Externally prn 12H Active Metamucil 48.57 % 1 Tablespoon in at l east 8 ounces of fluids Orally Once or Twice a day for constipation for 30 days 09/01/2022 Active Nystatin 734262 UNIT/ML 4 mL Mouth/Throa t Four times a day for 14 day(s) Active Artificial Tears 1-0.3 % 1 drop into aff ected eye as needed Ophthalmic 24 time(s) a day Active Colace 100 MG 1 Orally Every eveni ng at bedtime for 30 day(s) 07/23/2022 Active Linzess 145 MCG 1 capsule at least 3 0 minutes before the first meal of the day on an empty stomach Orally Once a day for 30 day(s) Active Ventolin HFA 108 (90 Base) MCG/ACT 2 puffs as needed Inhalation every 6 hrs Active Metamucil 48.57 % 1 Tablespoon Orally once or twice a day mixed in 8 ounces of water or OJ for constipation for 30 days 06/05/2022 Active Artificial Tear Solution - as directed Ophthalmic Active MiraLax - 17 Grams Orally Q PM PRN constipation for 30 days 01/08/2020 Active Senna 8.6 MG 1 capsule each eveni ng Orally Once a day for 30 day(s) Active MiraLax - 17 Grams Orally QAM for 30 days 01/08/2020 Active Magnesium Hydroxide 2400 MG/10ML 5 mL Orally Twice a day for 30 day(s) Active Lisinopril Active Bisacodyl Laxative 10 MG 1 suppository a s needed Rectal Once a day for 30 day(s) Active Colace 100 MG 1 capsule as needed Orally Once a day Active Preparation H 1 % 1 Externally Once a day as needed for anal or rectal pain for 30 days 09/23/2023 Active IMMUNIZATIONS Vaccine Route Administration Date Status Comme nts Influenza Unknown 08/16/2019 Administered Influenza Unknown 09/11/2020 Administered Influenza Unknown 09/03/2021 Administered Influenza Unknown 11/16/2023 Administered SOCIAL HISTORY Tobacco Use: Social History Observation Description Date Details (start date - stop date) Never Smoker NA - NA Sex Assigned At : Social History Observation Description Sex Assigned At Unknown Tobacco Use/Smoking Question Answer Notes Patient is a nonsmoker Alcohol Screen Question Answer Notes Did you have a drink containing alcohol in the p ast year? No Points 0 Interpretation Negative PROBLEMS Problem Type ICD Code Onset Dates Problem Status W/U Status Risk SNOMED Code Notes Problem Alcoholic liver disease (K70.9) Active confirmed 64525254 Problem Alcoholic cirrhosis of liver without ascites (K70.30) Active confirmed 810401766 Problem Gastroesophageal reflux disease without esophagitis (K21.9) Active confirmed 622223795 Problem History of adenomatous polyp of colon (Z86.010) Active confirmed 929366988 Problem Constipation, unspecified constipation type (K59.00) Active confirmed 18374739 Problem Encounter for screening for malignant neoplasm of colon (Z12.11) Active confirmed 807265361 VITAL SIGNS Temperature 97.3 degrees Fahrenheit 12/02/2023 Blood pressure diastolic 00 mm Hg 12/02/2023 Height 74 in 12/02/2023 Blood pressure systolic 000 mm Hg 12/02/2023 Weight 230 lbs 12/02/2023 BMI 29.53 kg/m2 12/02/2023 Encounters Encounter Location Date Provider Diagnosis [facility] [address] [place] [address] 12/02/2023 Corbin Swanson Constipation, unspec ified constipation type K59.00 ; Alcoholic cirrhosis of liver without ascites K70.30 and Gastroesophageal reflux disease without esophagitis K21.9 [facility] [address] [place] [phone] 09/23/2023 Corbin Swanson [facility] [address] [place] [phone] 12/07/2023 Corbin Swanson [facility] [address] [place] [phone] 12/09/2023 Corbin Swanson [facility] [address] [place] [phone] 12/20/2023 Corbin Swanson [facility] [address] [place] [phone] 01/07/2024 Corbin Swanson [facility] [address] [place] [phone] 03/02/2024 Corbin Swanson [facility] [address] [place] [phone] 06/24/2024 Corbin Swanson [facility] [address] [place] [phone] 07/27/2024 Corbin Swanson ASSESSMENTS Encounter Date Diagnosis Assessment Notes Treatment Notes Treatment Clinical Notes 12/02/2023 Alcoholic cirrhosis of liver without ascites (ICD-10 - K70.30) 12/02/2023 Constipation, unspecified constipation type (ICD-10 - K59.00) Use Miralax twice a day every day 12/02/2023 Gastroesophageal ref lux disease without esophagitis (ICD-10 - K21.9) PLAN OF TREATMENT Pending Test Test Name Order Date LIVER PROFILE 10/04/2020 LIVER PROFILE 05/18/2018 AMMONIA 05/18/2018 CBC w DIFF 10/04/2020 CBC w DIFF 05/18/2018 PROTHROMBIN TIME (PT, INR) 10/04/2020 PROTHROMBIN TIME (PT, INR) 05/18/2018 PROTHROMBIN TIME (PT, INR) 02/25/2022 ALPHA-FETOPROTEIN,TUMOR MARKER 2 ALPHA-FETOPROTEIN,TUMOR MARKER 0 ALPHA-FETOPROTEIN,TUMOR MARKER 8 US ABD 02/25/2022 US ABD 10/04/2020 US abdomen complete 03/07/2022 Insurance Providers Payer Name Payer Address Payer Phone Subscriber Number Group Number Insured Name Patient Relationship to Insured Coverage Start Date Coverage End Date MEDICARE OF [place] [address] [place] [address] [id number] BEVERLY CABRERA Self - patient is the insured MEDICAID OF [facility] [employer] [facility] [address] [place] [id number] BEVERLY CABRERA Self - patient is the insured MEDICAL (GENERAL) HISTORY Medical History History ICD Code Urinary incontinence Hypertension Denies NC,DM,CVA,Lung disease,renal dise ase Alcohol-induced cirrhosis--n eg. CT of liver in 09/2019 at [facility]--no ascites, no masses---mild splenomgealy, positive varices Trouble walking due to trent ce issues in relation to his subdural hematomas and craniotomies Depression--at [facility] for 2 months 11/2021 to 01/2022; then to rehab until early February GERD/esophagitis--GI bleedin g admission at [facility]---upper endoscopy in 2006 revealed erosive esophagitis and esophageal ulcers while he was actively drinking; a followup endoscopy in 2008 revealed complete healing and no sign of Ac's esophagus Colonoscopies--2014 and 2016 at the [facility]--the 2014 exam was suboptimal due to poor bowel prep; the 2016 exam revealed a small tubular adenoma and small serrated adenoma EGD in 2016 at the [facility] was negative for varices nor significant esophagitis--gastric biopsies were negative for H. pylori Chronic constipation Ischemic colitis in 2021. He had a Flex sig with Dr. Steiner Surgical History Surgery Date(Month/Year) Craniotomy x2 for subdurals 2006 Cholecystectomy 2011 Hernia repair age 4 Umbilical hernia repair 01/12/2020
--- OUTSIDE RECORDS SUMMARY | 2024-08-19 12:06 | XMS_ITS ---
Author Organization [facility] Address [address] [place] [phone] Care Team Providers Care Charger Operator Name Role Phone Wilmer Enciso MD Primary Care Provider Unavail Corbin Shore Unavailable [phone] REASON FOR VISIT SENNA MEDICATIONS Medication SIG (Take, Route, Frequency, Duration) Notes Start Date End Date Status Senna 8.6 MG 1 capsule each eveni ng Orally Once a day for 30 day(s) Active Encounters Encounter Location Date Provider Diagnosis [facility] [address] [place] [phone] 03/02/2024 Corbin Swanson PLAN OF TREATMENT Medication Medication Name Sig Start Date Stop Date Notes Senna 8.6 MG 1 capsule each eveni ng Orally Once a day for 30 day(s)
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
== END 2024-08-19 13:10 | disposition home or self-care (01) ==
LOC: HO.HOP 12:04
PROVIDERS: PCP Internal Medicine; Visit Provider Psychiatry & Neurology Psychiatry
DX: F33.9 Major depressive disorder, recurrent, unspecified (principal); G31.89 Other specified degenerative diseases of nervous system; F09 Unspecified mental disorder due to known physiological condition; S06.9X9S Unspecified intracranial injury with loss of consciousness of unspecified duration, sequela
CPT/HCPCS: 99214

== ENCOUNTER → 2024-08-19 12:04 | Outpatient (BNVA) | payer MEDICARE, MEDICAID, SELFPAY | PROVIDERS: PCP Internal Medicine; Visit Provider Psychiatry & Neurology Psychiatry | DX: F33.9 Major depressive disorder, recurrent, unspecified (principal); G31.89 Other specified degenerative diseases of nervous system; S06.9X9S Unspecified intracranial injury with loss of consciousness of unspecified duration, sequela; X58.XXXS Exposure to other specified factors, sequela | CPT/HCPCS: 99212 ==

== ENCOUNTER 2024-10-24 12:05 | Outpatient (AMB) | payer MEDICARE, MEDICAID, SELFPAY ==
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
== END 2024-10-24 13:22 | disposition home or self-care (01) ==
LOC: HO.HOP 12:05
PROVIDERS: PCP Physician Assistant Medical; Visit Provider Psychiatry & Neurology Psychiatry
DX: F33.9 Major depressive disorder, recurrent, unspecified (principal); G31.89 Other specified degenerative diseases of nervous system; F09 Unspecified mental disorder due to known physiological condition; S06.9X9S Unspecified intracranial injury with loss of consciousness of unspecified duration, sequela
CPT/HCPCS: 90833; 99213

== ENCOUNTER 2024-10-24 12:05 | Outpatient (REF) | payer MEDICARE, MEDICAID, SELFPAY ==
[2024-10-24 13:11] LABS: MANUAL DIFF FLAG NO
[2024-10-24 13:15] LABS: Basophils Percent Auto 0.7 % (0-2); Eosinophils Absolute Auto 0.2 X10*3/uL (0.0-0.4); Eosinophils Percent Auto 3.3 % (0-4); Hemoglobin 15.4 g/dl (14.0-18.0); Imm Gran Abs Auto 0.05 X10*3/uL (0.00-0.03); Imm Gran Pct Auto 0.8 % (0.0-0.4); Lymphocytes Absolute Auto 1.5 X10*3/uL (1.2-4.9); Lymphocytes Percent Auto 24.9 % (20-40); Mean Corpuscular HGB Conc 34.2 g/dl (31.0-36.0); Mean Corpuscular Hemoglobin 33.3 pg (27.0-33.0); Mean Corpuscular Volume 97.2 fL (80.0-98.0); Mean Platelet Volume 9.8 fL (9.4-12.4); Monocytes Absolute Auto 0.8 X10*3/uL (0.1-1.2); Monocytes Percent Auto 13.2 % (2-11); Neutrophils Absolute Auto 3.5 x10*3/uL (2.0-8.3); Neutrophils Percent Auto 57.1 % (45-73); Platelet Count 155 X10*3/uL (160-400); Red Blood Count 4.63 X10*6/uL (4.60-5.80); Red Cell Distribution Width 11.6 % (11.0-16.0); White Blood Count 6.2 X10*3/uL (4.8-10.8)
[2024-10-24 13:29] LABS: Alanine Aminotransferase 65 U/L (0-40); Albumin Level 4.1 g/dL (3.5-5.0); Alkaline Phosphatase 53 U/L (39-117); Anion Gap 11 (12-20); Aspartate Amino Transferase 42 U/L (5-37); Bilirubin Total 0.4 mg/dL (0.0-1.0); Blood Urea Nitrogen 17 mg/dL (9-16); Calcium 8.9 mg/dL (8.4-10.2); Carbon Dioxide 27 mmol/L (22-29); Chloride 105 mmol/L (96-108); Estimated Glomerular Filt Rate > 60; Glucose Random 95 mg/dL (60-115); Sodium 139 mmol/L (135-145)
[2024-10-24 13:35] LABS: Ammonia 88 umol/L (13-55)
[2024-10-24 13:38] LABS: Valproate 32.9 mcg/mL (50.0-100.0)
--- OUTSIDE RECORDS SUMMARY | 2024-10-26 15:32 | XMS_ITS | Clinical Summary ---
Author Organization Unknown Care Team Providers Care Free Lance Artist Name Role Phone ANGELITO GAINES, MARSHALL Unavailable Unavailable RODNEY GARCIA, VELVET Unavailable Unavailable RICA GARCIA, ANTHONY Unavailable Unavailable Payers Payer Name Policy Type Policy Number Effective Date Expira tion Date ON DEMAND MEDIC[place] - [place] [id number] [place] [id number] Problems Condition Name Condition Details Condition Category Status Onset Date Resolution Date Last Treatment Date Treating Clinician Comments MAJOR DEPRESSV DISORDER, RECURRENT SEVERE W/O PSYCH FEATURES Active 2021-11 00:00: 00 Allergies, Adverse Reactions, Alerts Allergy Name Allergy Type Status Severity Reaction(s) Onset Date Inactive Date Treating Clinician Comments NKA Propensity to adverse reactions Active 2023-05 08:06:3 0 Medications Ordered Medication Name Filled Medication Name Start Date Stop Date Current Medication? Ordering Clinician Indication Dosage Frequency Signature (SIG) Comments Components Abilify 15 mg tablet 07-31 00:00: 00 Yes [id number] .5 tablet DAILY .5 tablet DAILY (route: oral) Med Classific ation: Central Nervous System Agents amlodipine 5 mg tablet 07-31 00:00: 00 Yes [id number] 1.5 tablet DAILY 1.5 tablet DAILY (route: oral) Med Classific ation: Cardiovas cular Therapy Agents Ativan 0.5 mg tablet 07-31 00:00: 00 Yes [id number] 1 tablet EVERY 6 HOURS 1 tablet EVERY 6 HOURS (route: oral) Med Classific ation: Central Nervous System Agents Colace 100 mg capsule 07-31 00:00: 00 Yes [id number] 1 capsule 2 TIMES DAILY 1 capsule 2 TIMES DAILY (route: oral) Med Classific ation: Gastroint estinal Therapy Agents escitalopra m 10 mg tablet 07-31 00:00: 00 Yes [id number] 1 tablet DAILY 1 tablet DAILY (route: oral) Med Classific ation: Central Nervous System Agents gabapentin 300 mg capsule 07-31 00:00: 00 Yes [id number] 1 capsule 3 TIMES DAILY 1 capsule 3 TIMES DAILY (route: oral) Med Classific ation: Central Nervous System Agents ibuprofen 200 mg tablet 07-31 00:00: 00 Yes [id number] 2 tablet EVERY 6 HOURS 2 tablet EVERY 6 HOURS (route: oral) Med Classific ation: Analgesic , Anti-infl ammatory or Antipyret ic Lamictal 100 mg tablet 07-31 00:00: 00 Yes [id number] 1 tablet 2 TIMES DAILY 1 tablet 2 TIMES DAILY (route: oral) Med Classific ation: Central Nervous System Agents Lexapro 20 mg tablet 07-31 00:00: 00 Yes [id number] 1 tablet DAILY 1 tablet DAILY (route: oral) Med Classific ation: Central Nervous System Agents Lidocare 4 % topical patch 07-31 00:00: 00 Yes [id number] 1 adhesiv e patch, medicat ed EVERY 12 HOURS 1 adhesive patch, medicated EVERY 12 HOURS (route: topical) Med Classific ation: Dermatolo gical lisinopril 40 mg tablet 07-31 00:00: 00 Yes [id number] 1 tablet DAILY 1 tablet DAILY (route: oral) Med Classific ation: Cardiovas cular Therapy Agents melatonin 5 mg tablet 07-31 00:00: 00 Yes [id number] 1 tablet BEDTIME 1 tablet BEDTIME (route: oral) Med Classific ation: Central Nervous System Agents Miralax 17 gram oral powder packet 07-31 00:00: 00 Yes [id number] 1 packet DAILY 1 packet DAILY (route: oral) Med Classific ation: Gastroint estinal Therapy Agents Multi-Vitam ins with Iron chewable tablet 07-31 00:00: 00 Yes [id number] 1 tablet DAILY 1 tablet DAILY (route: oral) Med Classific ation: Electroly te Balance-N utritiona l Products Proscar 5 mg tablet 07-31 00:00: 00 Yes [id number] 1 tablet DAILY 1 tablet DAILY (route: oral) Med Classific ation: Genitouri nary Therapy trazodone 300 mg tablet 07-31 00:00: 00 Yes [id number] 1 tablet BEDTIME 1 tablet BEDTIME (route: oral) Med Classific ation: Central Nervous System Agents Tylenol 8 Hour 650 mg tablet,exte nded release 07-31 00:00: 00 Yes [id number] 1 tablet 3 TIMES DAILY 1 tablet 3 TIMES DAILY (route: oral) Med Classific ation: Analgesic , Anti-infl ammatory or Antipyret ic Ventolin HFA 90 mcg/actuati on aerosol inhaler 07-31 00:00: 00 Yes [id number] 2 puff EVERY 6 HOURS 2 puff EVERY 6 HOURS (route: inhalation ) Med Classific ation: Respirato ry Therapy Agents Vital Signs Vital Name Observation Time Observation Value Commen ts Temperature 2023-06-23 16:37:00.000 97.4 [degF] Temperature 2023-06-15 12:15:00.000 97.4 [degF] Temperature 2023-06-09 15:59:00.000 97.2 [degF] Temperature 2023-06-05 11:05:00.000 98 [degF] Temperature 2023-06-03 12:47:00.000 97.3 [degF] Temperature 2023-05-29 11:30:00.000 97.1 [degF] Temperature 2023-05-21 08:43:00.000 98.6 [degF] BMI (%) 2023-05-21 08:34:43.000 29 kg/m2 Height 2023-05-21 08:34:33.000 74 [in_us] Pulse 2023-06-23 16:37:00.000 60 /min Pulse 2023-06-22 12:29:00.000 62 /min Pulse 2023-06-19 11:34:00.000 68 /min Pulse 2023-06-17 18:57:00.000 78 /min Pulse 2023-06-15 12:15:00.000 76 /min Pulse 2023-06-09 15:59:00.000 60 /min Pulse 2023-06-08 14:35:00.000 68 /min Pulse 2023-06-05 11:05:00.000 68 /min Pulse 2023-06-05 10:51:00.000 68 /min Pulse 2023-06-03 12:47:00.000 60 /min Pulse 2023-06-03 11:10:00.000 80 /min Pulse 2023-05-29 11:30:00.000 60 /min Pulse 2023-05-21 08:43:00.000 80 /min O2 Saturation (%) 2023-06-29 12:07:00.000 98 % O2 Saturation (%) 2023-06-23 16:37:00.000 95 % O2 Saturation (%) 2023-06-19 11:34:00.000 97 % O2 Saturation (%) 2023-06-15 12:15:00.000 95 % O2 Saturation (%) 2023-06-09 15:59:00.000 96 % O2 Saturation (%) 2023-06-05 11:05:00.000 98 % O2 Saturation (%) 2023-06-03 12:47:00.000 96 % O2 Saturation (%) 2023-05-21 08:43:00.000 98 % Respirations 2023-06-29 12:07:00.000 18 /min Respirations 2023-06-26 16:01:00.000 18 /min Respirations 2023-06-23 16:37:00.000 18 /min Respirations 2023-06-22 12:29:00.000 18 /min Respirations 2023-06-19 11:34:00.000 18 /min Respirations 2023-06-17 18:57:00.000 18 /min Respirations 2023-06-15 16:08:00.000 18 /min Respirations 2023-06-15 12:15:00.000 18 /min Respirations 2023-06-09 15:59:00.000 18 /min Respirations 2023-06-08 14:35:00.000 18 /min Respirations 2023-06-05 11:05:00.000 16 /min Respirations 2023-06-05 10:51:00.000 16 /min Respirations 2023-06-03 12:47:00.000 18 /min Respirations 2023-06-03 11:10:00.000 18 /min Respirations 2023-05-29 11:30:00.000 16 /min Respirations 2023-05-21 08:43:00.000 20 /min Weight (lbs) 2023-05-21 08:34:43.000 230 [lb_av] Systolic Blood Pressure 2023-06-29 12:07:00.000 120 mm [Hg] Systolic Blood Pressure 2023-06-26 16:01:00.000 132 mm [Hg] Systolic Blood Pressure 2023-06-23 16:37:00.000 120 mm [Hg] Systolic Blood Pressure 2023-06-22 12:29:00.000 122 mm [Hg] Systolic Blood Pressure 2023-06-19 11:34:00.000 110 mm [Hg] Systolic Blood Pressure 2023-06-17 18:57:00.000 124 mm [Hg] Systolic Blood Pressure 2023-06-15 16:08:00.000 130 mm [Hg] Systolic Blood Pressure 2023-06-15 12:15:00.000 126 mm [Hg] Systolic Blood Pressure 2023-06-09 15:59:00.000 116 mm [Hg] Systolic Blood Pressure 2023-06-08 14:35:00.000 112 mm [Hg] Systolic Blood Pressure 2023-06-05 11:05:00.000 130 mm [Hg] Systolic Blood Pressure 2023-06-05 10:51:00.000 130 mm [Hg] Systolic Blood Pressure 2023-06-03 12:47:00.000 108 mm [Hg] Systolic Blood Pressure 2023-06-03 11:10:00.000 132 mm [Hg] Systolic Blood Pressure 2023-05-29 11:30:00.000 135 mm [Hg] Systolic Blood Pressure 2023-05-21 08:43:00.000 138 mm [Hg] Diastolic Blood Pressure 2023-06-29 12:07:00.000 60 mm [Hg] Diastolic Blood Pressure 2023-06-26 16:01:00.000 80 mm [Hg] Diastolic Blood Pressure 2023-06-23 16:37:00.000 84 mm [Hg] Diastolic Blood Pressure 2023-06-22 12:29:00.000 60 mm [Hg] Diastolic Blood Pressure 2023-06-19 11:34:00.000 60 mm [Hg] Diastolic Blood Pressure 2023-06-17 18:57:00.000 70 mm [Hg] Diastolic Blood Pressure 2023-06-15 16:08:00.000 70 mm [Hg] Diastolic Blood Pressure 2023-06-15 12:15:00.000 76 mm [Hg] Diastolic Blood Pressure 2023-06-09 15:59:00.000 80 mm [Hg] Diastolic Blood Pressure 2023-06-08 14:35:00.000 60 mm [Hg] Diastolic Blood Pressure 2023-06-05 11:05:00.000 60 mm [Hg] Diastolic Blood Pressure 2023-06-05 10:51:00.000 60 mm [Hg] Diastolic Blood Pressure 2023-06-03 12:47:00.000 70 mm [Hg] Diastolic Blood Pressure 2023-06-03 11:10:00.000 60 mm [Hg] Diastolic Blood Pressure 2023-05-29 11:30:00.000 68 mm [Hg] Diastolic Blood Pressure 2023-05-21 08:43:00.000 97 mm [Hg] Plan of Treatment Planned Activity Planned Date Details Comments Future Scheduled Test SKILLED NU RSE TO EVALUATE PATIENT, IDENTIFY PRIMARY AND CO-MORBID CONDITIONS CODED PER CODING GUIDELINES, AND DEVELOP PATIENT SPECIFIC PLAN OF CARE THAT INCLUDES PATIENT GOAL FOR HOME HEALTH. BEVERLY CABRERA IS A 67 YEAR OLD MALE LIVING IN A NURSING HOME. PMH:MDD RECURRENT WITHOUT PSYCHOSIS, TBI,HX OF AUD. HE IS WHEELCHAIR BOUND,. HAS CO-MOBID MEDICAL DIAGNOSIS OF SEIZURE DISORDER, TIA, SUBDURAL HEMATOMA, AND HTN. PRESDNTED TO ED ON 10/03/2022 DUE TO SI AND AGGRESSIVE BEHAVIOR AT HIS NURSING HOME. UTOX POSITIVE FOR BARBITURATES, ETOH10 SAYS HE HAS BEEN ABSTINSNT,.ADMITTED TO [facility] AND DISCHARGED 02/18/2023. PATIENT HAD JUST GOTTEN UP FROM BED WHEN NURSE ARRIVED. MEDICATIONS RECONCILED, APPETITE FAIRD. PATIENT IS WHEELCHAIR BOUND, AND EXPRESSES GOAL OF IMPROVING STAMOAND ENDURANCE WITSN, PT AND OT. ANLE TO TRANSFER TO TOILET WITH ASSISTANCE, HE WEARS DEPENDS. . STAFF ASSITS WITH ADLS. SKIN DRY AND INTACT. AOX3, FORGETFUL AND OCCASINALLY CONFUSED. PATIENT TO RECEIVE DETENTION VISITS 3WK8, FOR CV ASSESSMENT AND MEDICATION MANAGEMENT. PATIENT VOICES REQUEST FOR PT AND OT; INITIAL EVALUATIONS FOR PT AND OT SUBMIITED. PCP INFORMED OF START OF CARE, PCP FOLLOW-UP TO BE SCHEDULED. N [code = SKILLED NURSE TO EVALUATE PATIENT, IDENTIFY PRIMARY AND CO-MORBID CONDITIONS CODED PER CODING GUIDELINES, AND DEVELOP PATIENT SPECIFIC PLAN OF CARE THAT INCLUDES PATIENT GOAL FOR HOME HEALTH. BEVERLY CABRERA IS A 67 YEAR OLD MALE LIVING IN A NURSING HOME. PMH:MDD RECURRENT WITHOUT PSYCHOSIS, TBI,HX OF AUD. HE IS WHEELCHAIR BOUND,. HAS CO-MOBID MEDICAL DIAGNOSIS OF SEIZURE DISORDER, TIA, SUBDURAL HEMATOMA, AND HTN. PRESDNTED TO ED ON 10/03/2022 DUE TO SI AND AGGRESSIVE BEHAVIOR AT HIS NURSING HOME. UTOX POSITIVE FOR BARBITURATES, ETOH10 SAYS HE HAS BEEN ABSTINSNT,.ADMITTED TO [facility] AND DISCHARGED 02/18/2023. PATIENT HAD JUST GOTTEN UP FROM BED WHEN NURSE ARRIVED. MEDICATIONS RECONCILED, APPETITE FAIRD. PATIENT IS WHEELCHAIR BOUND, AND EXPRESSES GOAL OF IMPROVING STAMOAND ENDURANCE WITSN, PT AND OT. ANLE TO TRANSFER TO TOILET WITH ASSISTANCE, HE WEARS DEPENDS. . STAFF ASSITS WITH ADLS. SKIN DRY AND INTACT. AOX3, FORGETFUL AND OCCASINALLY CONFUSED. PATIENT TO RECEIVE DETENTION VISITS 3WK8, FOR CV ASSESSMENT AND MEDICATION MANAGEMENT. PATIENT VOICES REQUEST FOR PT AND OT; INITIAL EVALUATIONS FOR PT AND OT SUBMIITED. PCP INFORMED OF START OF CARE, PCP FOLLOW-UP TO BE SCHEDULED. N] Future Scheduled Test SKILLED NU RSE TO O/A OF PATIENTS MENTAL/BEHAVIORAL STATUS, ASSESS VITAL SIGNS 3WK8 ALLOW 2 PRNS FOR MEDICATION MANAGEMENT. [code = SKILLED NURSE TO O/A OF PATIENTS MENTAL/BEHAVIORAL STATUS, ASSESS VITAL SIGNS 3WK8 ALLOW 2 PRNS FOR MEDICATION MANAGEMENT.] Future Scheduled Test SKILLED NU RSE FOR O/A OF GENERAL HEALTH STATUS OF PAIN, CARDIAC, RESPIRATORY, GASTROINTESTINAL, GENITOURINARY, SKIN, NEUROLOGIC, ENDOCRINE SYSTEMS TO IDENTIFY CHANGES ASSOCIATED WITH EXACERBATION FOR EARLY INTERVENTION OF COMPLICATIONS 3WK8 [code = SKILLED NURSE FOR O/A OF GENERAL HEALTH STATUS OF PAIN, CARDIAC, RESPIRATORY, GASTROINTESTINAL, GENITOURINARY, SKIN, NEUROLOGIC, ENDOCRINE SYSTEMS TO IDENTIFY CHANGES ASSOCIATED WITH EXACERBATION FOR EARLY INTERVENTION OF COMPLICATIONS 3WK8 ] Future Scheduled Test SKILLED NU RSE FOR O/A AND SKILLED TEACHING RELATED TO MANAGEMENT OF DEPRESSIVE SYMPTOMS AND/OR DEPRESSION INCLUDING PARTICIPATION IN [facility] CARE SPECIALTY PROGRAM. SN TO REPORT SIGNIFICANT CHANGE IN DEPRESSIVE SYMPTOMS TO CLINICAL PROVIDER FOR EARLY INTERVENTION. [code = SKILLED NURSE FOR O/A AND SKILLED TEACHING RELATED TO MANAGEMENT OF DEPRESSIVE SYMPTOMS AND/OR DEPRESSION INCLUDING PARTICIPATION IN [facility] SPECIALTY PROGRAM. SN TO REPORT SIGNIFICANT CHANGE IN DEPRESSIVE SYMPTOMS TO CLINICAL PROVIDER FOR EARLY INTERVENTION.] Future Scheduled Test SKILLED NU RSE FOR O/A OF NEUROCOGNITIVE AND BEHAVIORAL STATUS [code = SKILLED NURSE FOR O/A OF NEUROCOGNITIVE AND BEHAVIORAL STATUS] Future Scheduled Test PHYSICAL T HERAPIST TO EVALUATE PATIENT SECONDARY TO FUNCTIONAL DEFICITS/SAFETY CONCERNS. PHYSICAL THERAPY TO ESTABLISH /UPGRADE/DOWNGRADE THERAPEUTIC EXERCISE PROGRAM AND INSTRUCT PATIENT/CAREGIVER ON EXERCISE PRECAUTIONS WITH WRITTEN HOME PROGRAM. MAY INCLUDE PROM, AAROM, AROM, RROM APPROPRIATE TO IMPROVE FUNCTIONAL STRENGTH AND RANGE OF MOTION. PHYSICAL THERAPY TO INSTRUCT PATIENT/CAREGIVER ON SAFE TRANSFER TECHNIQUES USING PROPER BODY MECHANICS AND EQUIPMENT. PHYSICAL THERAPY TO INSTRUCT PATIENT/CAREGIVER ON GAIT TRAINING TECHNIQUES USING APPROPRIATE ASSISTIVE DEVICE, PROPER BODY MECHANICS TO IMPROVE MOBILITY, AND PREVENT INJURY OF PATIENT AND/OR CAREGIVER. PHYSICAL THERAPY TO ASSESS AND RECOMMEND HOME SAFETY ADAPTATIONS AND EDUCATE PATIENT /CAREGIVER ON FALL PREVENTION STRATEGIES. PHYSICAL THERAPY TO INSTRUCT PATIENT/CAREGIVER ON BALANCE AND BALANCE STRATEGIES TO IMPROVE SAFE MOBILITY AND REDUCE RISK FOR FALL AND INJURY INCLUDING PARTICIPATION IN [facility] BALANCE SPECIALTY PROGRAM SUMMARY OF THERAPY EVAL/ASSESSMENT FINDINGS AND REASON(S) SKILLS OF A THERAPIST ARE INDICATED: PATIENT IS A 67 YEAR OLD MALE NEW TO NURSING HOME. SIGNIFICANT HISTORY OF TBI, SUBDERMAL HEMATOMA, LEFT TOTAL HIP REPLACEMENT, RIGHT HIP FRACTURE, HYPERTENSION, ETOH, SEIZURES. PATIENT HAS BEEN USING WHEELCHAIR IN NURSING HOME. PATIENT IS ALERT AND ABLE TO FOLLOW DIRECTIONS AND ANSWER QUESTIONS APPROPRIATELY. PATIENT DENIES ANY SIGNIFICANT PAIN COMPLAINS MORE OF ABDOMINAL DISCOMFORT. PATIENT DOES HAVE HISTORY OF BLADDER INCONTINENCE. RESTING BLOOD PRESSURE 135/68 HEART RATE 60 RESPIRATORY RATE 16 TEMPERATURE 97.0. PATIENT IS [place] WITH HEARING AID. POSTURE IS FWD FLEX WITH ROUND SHOULDERS. PATIENT RANGE OF MOTION IN BUE EXTREMITIES WFL. LEFT KNEE -30? EXTENSION RIGHT IN THE NEGATIVE 10? EXTENSION. BILATERAL LOWER EXTREMITY WEAKNESS 4/5 GROSSLY HIPS AND KNEES. PATIENT WAS ABLE TO TRANSFER TO AND FROM WHEELCHAIR WITH CONTACT CARD TO MINIMAL ASSISTANCE. TOLERATED STANDING FOR 30 SECONDS AT SINK WITH FLEX KNEES. PATIENT IS APPROPRIATE FOR LOWER EXTREMITY STRENGTHENING, TRANSFER TRAINING, STANDING TOLERANCE, KNEE RANGE OF MOTION AND LOWER EXTREMITY STRENGTHENING, IF PATIENT IS MAKE GAINS IN ALL AREAS MAY BE APPROPRIATE TO RESUME GAIT TRAINING. PATIENT AGREES WITH PLAN OF CARE. [code = PHYSICAL THERAPIST TO EVALUATE PATIENT SECONDARY TO FUNCTIONAL DEFICITS/SAFETY CONCERNS. PHYSICAL THERAPY TO ESTABLISH /UPGRADE/DOWNGRADE THERAPEUTIC EXERCISE PROGRAM AND INSTRUCT PATIENT/CAREGIVER ON EXERCISE PRECAUTIONS WITH WRITTEN HOME PROGRAM. MAY INCLUDE PROM, AAROM, AROM, RROM APPROPRIATE TO IMPROVE FUNCTIONAL STRENGTH AND RANGE OF MOTION. PHYSICAL THERAPY TO INSTRUCT PATIENT/CAREGIVER ON SAFE TRANSFER TECHNIQUES USING PROPER BODY MECHANICS AND EQUIPMENT. PHYSICAL THERAPY TO INSTRUCT PATIENT/CAREGIVER ON GAIT TRAINING TECHNIQUES USING APPROPRIATE ASSISTIVE DEVICE, PROPER BODY MECHANICS TO IMPROVE MOBILITY, AND PREVENT INJURY OF PATIENT AND/OR CAREGIVER. PHYSICAL THERAPY TO ASSESS AND RECOMMEND HOME SAFETY ADAPTATIONS AND EDUCATE PATIENT /CAREGIVER ON FALL PREVENTION STRATEGIES. PHYSICAL THERAPY TO INSTRUCT PATIENT/CAREGIVER ON BALANCE AND BALANCE STRATEGIES TO IMPROVE SAFE MOBILITY AND REDUCE RISK FOR FALL AND INJURY INCLUDING PARTICIPATION IN [facility] BALANCE SPECIALTY PROGRAM SUMMARY OF THERAPY EVAL/ASSESSMENT FINDINGS AND REASON(S) SKILLS OF A THERAPIST ARE INDICATED: PATIENT IS A 67 YEAR OLD MALE NEW TO NURSING HOME. SIGNIFICANT HISTORY OF TBI, SUBDERMAL HEMATOMA, LEFT TOTAL HIP REPLACEMENT, RIGHT HIP FRACTURE, HYPERTENSION, ETOH, SEIZURES. PATIENT HAS BEEN USING WHEELCHAIR IN NURSING HOME. PATIENT IS ALERT AND ABLE TO FOLLOW DIRECTIONS AND ANSWER QUESTIONS APPROPRIATELY. PATIENT DENIES ANY SIGNIFICANT PAIN COMPLAINS MORE OF ABDOMINAL DISCOMFORT. PATIENT DOES HAVE HISTORY OF BLADDER INCONTINENCE. RESTING BLOOD PRESSURE 135/68 HEART RATE 60 RESPIRATORY RATE 16 TEMPERATURE 97.0. PATIENT IS HUALAP[place] WITH HEARING AID. POSTURE IS FWD FLEX WITH ROUND SHOULDERS. PATIENT RANGE OF MOTION IN BUE EXTREMITIES WFL. LEFT KNEE -30? EXTENSION RIGHT IN THE NEGATIVE 10? EXTENSION. BILATERAL LOWER EXTREMITY WEAKNESS 4/5 GROSSLY HIPS AND KNEES. PATIENT WAS ABLE TO TRANSFER TO AND FROM WHEELCHAIR WITH CONTACT CARD TO MINIMAL ASSISTANCE. TOLERATED STANDING FOR 30 SECONDS AT SINK WITH FLEX KNEES. PATIENT IS APPROPRIATE FOR LOWER EXTREMITY STRENGTHENING, TRANSFER TRAINING, STANDING TOLERANCE, KNEE RANGE OF MOTION AND LOWER EXTREMITY STRENGTHENING, IF PATIENT IS MAKE GAINS IN ALL AREAS MAY BE APPROPRIATE TO RESUME GAIT TRAINING. PATIENT AGREES WITH PLAN OF CARE.] Future Scheduled Test SKILLED NU RSE TO PRE-POUR MEDICATION PER MEDICATION LIST EACH VISIT. [code = SKILLED NURSE TO PRE-POUR MEDICATION PER MEDICATION LIST EACH VISIT.] Future Scheduled Test SKILLED NU RSE TO REVIEW PATIENT MEDICATIONS. INSTRUCT PATIENT/CAREGIVER ON MONITORING OF EFFECTIVENESS, ADVERSE DRUG REACTIONS, SIDE EFFECTS OF ALL MEDICATIONS (PRESCRIPTION/-OTC), AND HOW AND WHEN TO REPORT PROBLEMS. [code = SKILLED NURSE TO REVIEW PATIENT MEDICATIONS. INSTRUCT PATIENT/CAREGIVER ON MONITORING OF EFFECTIVENESS, ADVERSE DRUG REACTIONS, SIDE EFFECTS OF ALL MEDICATIONS (PRESCRIPTION/-OTC), AND HOW AND WHEN TO REPORT PROBLEMS. ] Future Scheduled Test SKILLED NU RSE FOR OBSERVATION AND ASSESSMENT OF PATIENTS PAIN LEVEL AND EFFECTIVENESS OF PAIN MANAGEMENT REGIMEN. SKILLED NURSE TO INSTRUCT PATIENT/CAREGIVER REGARDING PHARMACOLOGIC AND NON-PHARMACOLOGIC PAIN CONTROL MEASURES. SKILLED NURSE TO REPORT TO PHYSICIAN IF PAIN IS UNCONTROLLED WITH CURRENT PAIN MANAGEMENT REGIMEN. [code = SKILLED NURSE FOR OBSERVATION AND ASSESSMENT OF PATIENTS PAIN LEVEL AND EFFECTIVENESS OF PAIN MANAGEMENT REGIMEN. SKILLED NURSE TO INSTRUCT PATIENT/CAREGIVER REGARDING PHARMACOLOGIC AND NON-PHARMACOLOGIC PAIN CONTROL MEASURES. SKILLED NURSE TO REPORT TO PHYSICIAN IF PAIN IS UNCONTROLLED WITH CURRENT PAIN MANAGEMENT REGIMEN.] Future Scheduled Test SKILLED NU RSE TO PROVIDE INSTRUCTION ON FALL PREVENTION MEASURES. [code = SKILLED NURSE TO PROVIDE INSTRUCTION ON FALL PREVENTION MEASURES.] Future Scheduled Test SKILLED NU RSE TO ASSESS AND INSTRUCT PATIENT/CAREGIVER ON MEASURES TO PREVENT PRESSURE ULCERS. [code = SKILLED NURSE TO ASSESS AND INSTRUCT PATIENT/CAREGIVER ON MEASURES TO PREVENT PRESSURE ULCERS. ] Future Scheduled Test PATIENT MA Y HAVE ONE SET OF EMERGENCY MEDICATION NOT TO BE PRE-POURED ANY SOONER THAN 24 HOURS BEFORE SEVERE INCLEMENT WEATHER AND FOLLOWING SKILLED NURSE EVALUATION OF PATIENT SAFETY. [code = PATIENT MAY HAVE ONE SET OF EMERGENCY MEDICATION NOT TO BE PRE-POURED ANY SOONER THAN 24 HOURS BEFORE SEVERE INCLEMENT WEATHER AND FOLLOWING SKILLED NURSE EVALUATION OF PATIENT SAFETY.] Future Scheduled Test SKILLED NU RSE MAY PICKUP AND TRANSPORT MEDICATIONS [code = SKILLED NURSE MAY PICKUP AND TRANSPORT MEDICATIONS] Goal 2023-07-19 Patient Goal - P ATIENT EXPRESSES GOAL OF IMPROVING STAMINA AND ENDURANCE Goal Provider Goal - A PLAN OF CARE WILL BE ESTABLISHED THAT MEETS PATIENT'S DETENTION NEEDS AND INCLUDES PATIENT GOAL FOR HOME HEALTH. Goal Provider Goal - ALTERED MENTAL/BEHAVIORAL STATUS WILL BE IDENTIFIED PROMPTLY AND INTERVENTION INITIATED QUICKLY TO MINIMIZE ASSOCIATED RISKS Goal Provider Goal - CHANGE IN GENERAL HEALTH STATUS WILL BE IDENTIFIED AND REPORTED TO PHYSICIAN FOR PROMPT INTERVENTION TO MINIMIZE ASSOCIATED RISKS THROUGHOUT CERTIFICATION PERIOD. Goal Provider Goal - PATIENT WILL REMAIN SAFE WITHOUT DECOMPENSATION IN DEPRESSIVE CONDITION, WHILE MAINTAINING OPTIMAL LEVEL OF MENTAL HEALTH AND WELL BEING. Goal Provider Goal - PATIENT WILL BE ABLE TO PERFORM DAILY FUNCTIONS AND MAINTAIN OPTIMAL BEHAVIORAL/NEUROCOGNITIVE STATUS. Goal Provider Goal - PHYSICAL THERAPY EVALUATION TO BE COMPLETED WITH RECOMMENDATIONS AND/OR WRITTEN TREATMENT PLAN OF CARE ESTABLISHED FOR THE PHYSICIANS SIGNATURE PATIENT/CAREGIVER WILL PERFORM THERAPEUTIC EXERCISE/S AND DEMONSTRATE PARTICIPATION IN A HOME PROGRAM TO IMPROVE KNEE EXT ROM. PATIENT/CAREGIVER WILL DEMONSTRATE SAFE TRANSFERS USING APPROPRIATE ASSISTIVE DEVICE BODY MECHANICS AND EQUIPMENT TO IMPROVE FUNCTION OF TRANSFERS AND STAND CARMEN. PATIENT/CAREGIVER WILL DEMONSTRATE IMPROVED GAIT TECHNIQUES TO MINIMIZE RISK OF INJURY AND INCREASE FUNCTION OF STANDINGMOBILITY. PATIENT/CAREGIVER WILL DEMONSTRATE/VERBALIZE UNDERSTANDING OF RECOMMENDATIONS TO INCREASE SAFETY IN THE HOME AND FALL PREVENTION TO IMPROVE FUNCTION OF TRANSFERS. PATIENT/CAREGIVER WILL DEMONSTRATE IMPROVED BALANCE AND REDUCE THE RISK OF FALLS AND INJURY TO IMPROVE FUNCTION OF TRANSFERS. Goal Provider Goal - PATIENT WILL COMPLY WITH MEDICATION WHEN SKILLED NURSE PRE-POURS MEDICATION. Goal Provider Goal - PATIENT/CAREGIVER WILL VERBALIZE UNDERSTANDING OF EDUCATION PROVIDED ON MEDICATIONS BY THE END OF THE CERTIFICATION PERIOD. Goal Provider Goal - INCREASED PAIN OR INEFFECTIVE PAIN CONTROL MEASURES WILL BE IDENTIFIED AND PROMPTLY REPORTED TO PHYSICIAN THROUGHOUT THE CERTIFICATION PERIOD. Goal Provider Goal - PATIENT/CAREGIVER DEMONSTRATES UNDERSTANDING OF FALL PREVENTION MEASURES BY THE END OF THE CERTIFICATION PERIOD. Goal Provider Goal - PATIENT/CAREGIVER WILL VERBALIZE UNDERSTANDING OF PRESSURE ULCER PREVENTION BY END OF THE EPISODE. Reason for Visit REMAINS INPATIENT AT TIME OF DISCHARGE Encounters Start Date/Time End Date/Time Encounter Type Admission Type Attending Clinicians Care Facility Care Department Encounter ID Discharge Date Discharge Status Discharge Condition Discharge Reason Percent Goals Met 2023-05-21 00:00:00 2023-07-19 00:00:00 Outpatient NEW ADMISSION [facility] [id number] 2023-07-19 00:00:00 DISCHARGED /TRANSFERR ED TO A SHORT-[facility] C[facility] REMAINS INPATIENT AT TIME OF DISCHARGE REMAINS IN INPATIENT FACILITY AT END OF CERT PERIOD 59.26
--- OUTSIDE RECORDS SUMMARY | 2024-10-26 15:32 | XMS_ITS | Clinical Summary ---
Author Organization Unknown Care Team Providers Care Windows Software Engineer Name Role Phone ANGELITO GAINES, MARSHALL Unavailable Unavailable RODNEY GARCIA, VELVET Unavailable Unavailable RICA GARCIA, ANTHONY Unavailable Unavailable Payers Payer Name Policy Type Policy Number Effective Date Expira tion Date ON DEMAND MEDICARE - NGS PR BILLING - ABN [id number] [place] - ABN [id number] Problems Condition Name Condition Details Condition Category [...] 15 mg tablet 07-31 00:00: 00 Yes [id number] .5 tablet DAILY .5 tablet DAILY (route: oral) Med Classific ation: Central Nervous System Agents amlodipine 5 mg tablet 07-31 00:00: 00 Yes [id number] 1.5 tablet DAILY 1.5 tablet DAILY (route: oral) Med Classific ation: Cardiovas cular Therapy Agents Ativan 0.5 mg tablet 07-31 00:00: 00 Yes [id number] 1 tablet EVERY 6 HOURS 1 tablet EVERY 6 HOURS (route: oral) Med Classific ation: Central Nervous System Agents Colace 100 mg capsule 07-31 00:00: 00 Yes [id number] 1 capsule 2 TIMES DAILY 1 capsule 2 TIMES DAILY (route: oral) Med Classific ation: Gastroint estinal Therapy Agents escitalopra m 10 mg tablet 07-31 00:00: 00 Yes [id number] 1 tablet DAILY 1 tablet DAILY (route: oral) Med Classific ation: Central Nervous System Agents gabapentin 300 mg capsule 07-31 00:00: 00 Yes [id number] 1 capsule 3 TIMES DAILY 1 capsule 3 TIMES DAILY (route: oral) Med Classific ation: Central Nervous System Agents ibuprofen 200 mg tablet 07-31 00:00: 00 Yes [id number] 2 tablet EVERY 6 HOURS 2 tablet EVERY 6 HOURS (route: oral) Med Classific ation: Analgesic , Anti-infl ammatory or Antipyret ic Lamictal 100 mg tablet 07-31 00:00: 00 Yes [id number] 1 tablet 2 TIMES DAILY 1 tablet 2 TIMES DAILY (route: oral) Med Classific ation: Central Nervous System Agents Lexapro 20 mg tablet 07-31 00:00: 00 Yes [id number] 1 tablet DAILY 1 tablet DAILY (route: oral) Med Classific ation: Central Nervous System Agents Lidocare 4 % topical patch 07-31 00:00: 00 Yes [id number] 1 adhesiv e patch, medicat ed EVERY 12 HOURS 1 adhesive patch, medicated EVERY 12 HOURS (route: topical) Med Classific ation: Dermatolo gical lisinopril 40 mg tablet 07-31 00:00: 00 Yes [id number] 1 tablet DAILY 1 tablet DAILY (route: oral) Med Classific ation: Cardiovas cular Therapy Agents melatonin 5 mg tablet 07-31 00:00: 00 Yes [id number] 1 tablet BEDTIME 1 tablet BEDTIME (route: oral) Med Classific ation: Central Nervous System Agents Miralax 17 gram oral powder packet 07-31 00:00: 00 Yes [id number] 1 packet DAILY 1 packet DAILY (route: oral) Med Classific ation: Gastroint estinal Therapy Agents Multi-Vitam ins with Iron chewable tablet 07-31 00:00: 00 Yes [id number] 1 tablet DAILY 1 tablet DAILY (route: oral) Med Classific ation: Electroly te Balance-N utritiona l Products Proscar 5 mg tablet 07-31 00:00: 00 Yes [id number] 1 tablet DAILY 1 tablet DAILY (route: oral) Med Classific ation: Genitouri nary Therapy trazodone 300 mg tablet 07-31 00:00: 00 Yes [id number] 1 tablet BEDTIME 1 tablet BEDTIME (route: oral) Med Classific ation: Central Nervous System Agents Tylenol 8 Hour 650 mg tablet,exte nded release 07-31 00:00: 00 Yes [id number] 1 tablet 3 TIMES DAILY 1 tablet 3 TIMES DAILY (route: oral) Med Classific ation: Analgesic , Anti-infl ammatory or Antipyret ic Ventolin HFA 90 mcg/actuati on aerosol inhaler 07-31 00:00: 00 Yes [id number] 2 puff EVERY 6 HOURS 2 puff [...] 67 YEAR OLD MALE LIVING IN A CORRECTION. PMH:MDD RECURRENT WITHOUT PSYCHOSIS, TBI,HX OF AUD. HE IS WHEELCHAIR BOUND,. HAS CO-MOBID MEDICAL DIAGNOSIS OF SEIZURE DISORDER, TIA, SUBDURAL HEMATOMA, AND HTN. PRESDNTED TO ED ON 10/03/2022 DUE TO SI AND AGGRESSIVE BEHAVIOR AT HIS CORRECTION. UTOX POSITIVE FOR BARBITURATES, ETOH10 SAYS HE HAS BEEN ABSTINSNT,.ADMITTED TO [facility] AND DISCHARGED 02/18/2023. PATIENT HAD JUST GOTTEN UP FROM BED WHEN NURSE ARRIVED. MEDICATIONS RECONCILED, APPETITE FAIRD. PATIENT IS WHEELCHAIR BOUND, AND EXPRESSES GOAL OF IMPROVING STAMOAND ENDURANCE WITSN, PT AND OT. ANLE TO TRANSFER TO TOILET WITH ASSISTANCE, HE WEARS DEPENDS. . STAFF ASSITS WITH ADLS. SKIN DRY AND INTACT. AOX3, FORGETFUL AND OCCASINALLY CONFUSED. PATIENT TO RECEIVE LONG TERM VISITS 3WK8, FOR CV ASSESSMENT AND MEDICATION [...] 67 YEAR OLD MALE LIVING IN A CORRECTION. PMH:MDD RECURRENT WITHOUT PSYCHOSIS, TBI,HX OF AUD. HE IS WHEELCHAIR BOUND,. HAS CO-MOBID MEDICAL DIAGNOSIS OF SEIZURE DISORDER, TIA, SUBDURAL HEMATOMA, AND HTN. PRESDNTED TO ED ON 10/03/2022 DUE TO SI AND AGGRESSIVE BEHAVIOR AT HIS CORRECTION. UTOX POSITIVE FOR BARBITURATES, ETOH10 SAYS HE HAS BEEN ABSTINSNT,.ADMITTED TO [facility] AND DISCHARGED 02/18/2023. PATIENT HAD JUST GOTTEN UP FROM BED WHEN NURSE ARRIVED. MEDICATIONS RECONCILED, APPETITE FAIRD. PATIENT IS WHEELCHAIR BOUND, AND EXPRESSES GOAL OF IMPROVING STAMOAND ENDURANCE WITSN, PT AND OT. ANLE TO TRANSFER TO TOILET WITH ASSISTANCE, HE WEARS DEPENDS. . STAFF ASSITS WITH ADLS. SKIN DRY AND INTACT. AOX3, FORGETFUL AND OCCASINALLY CONFUSED. PATIENT TO RECEIVE LONG TERM VISITS 3WK8, FOR CV ASSESSMENT AND MEDICATION [...] DEPRESSIVE SYMPTOMS AND/OR DEPRESSION INCLUDING PARTICIPATION IN [facility] CARE SPECIALTY PROGRAM. SN TO REPORT SIGNIFICANT CHANGE IN DEPRESSIVE SYMPTOMS TO CLINICAL PROVIDER FOR EARLY INTERVENTION. [code = SKILLED NURSE FOR O/A AND SKILLED TEACHING RELATED TO MANAGEMENT OF DEPRESSIVE SYMPTOMS AND/OR DEPRESSION INCLUDING PARTICIPATION IN [facility] SPECIALTY PROGRAM. SN TO REPORT SIGNIFICANT CHANGE [...] FOR FALL AND INJURY INCLUDING PARTICIPATION IN [facility] BALANCE SPECIALTY PROGRAM SUMMARY OF THERAPY EVAL/ASSESSMENT FINDINGS AND REASON(S) SKILLS OF A THERAPIST ARE INDICATED: PATIENT IS A 67 YEAR OLD MALE NEW TO CORRECTION. SIGNIFICANT HISTORY OF TBI, SUBDERMAL HEMATOMA, LEFT TOTAL HIP REPLACEMENT, RIGHT HIP FRACTURE, HYPERTENSION, ETOH, SEIZURES. PATIENT HAS BEEN USING WHEELCHAIR IN [place]RE[place]. PATIENT IS ALERT AND ABLE TO FOLLOW DIRECTIONS AND ANSWER QUESTIONS APPROPRIATELY. PATIENT DENIES ANY SIGNIFICANT PAIN COMPLAINS MORE OF ABDOMINAL DISCOMFORT. PATIENT DOES HAVE HISTORY OF BLADDER INCONTINENCE. RESTING BLOOD PRESSURE 135/68 HEART RATE 60 RESPIRATORY RATE 16 TEMPERATURE 97.0. PATIENT IS SAMISH WITH HEARING AID. POSTURE IS FWD FLEX [...] FOR FALL AND INJURY INCLUDING PARTICIPATION IN [facility] BALANCE SPECIALTY PROGRAM SUMMARY OF THERAPY EVAL/ASSESSMENT FINDINGS AND REASON(S) SKILLS OF A THERAPIST ARE INDICATED: PATIENT IS A 67 YEAR OLD MALE NEW TO [place]. SIGNIFICANT HISTORY OF TBI, SUBDERMAL HEMATOMA, LEFT TOTAL HIP REPLACEMENT, RIGHT HIP FRACTURE, HYPERTENSION, ETOH, SEIZURES. PATIENT HAS BEEN USING WHEELCHAIR IN [place]. PATIENT IS ALERT AND ABLE TO FOLLOW DIRECTIONS AND ANSWER QUESTIONS APPROPRIATELY. PATIENT DENIES ANY SIGNIFICANT PAIN COMPLAINS MORE OF ABDOMINAL DISCOMFORT. PATIENT DOES HAVE HISTORY OF BLADDER INCONTINENCE. RESTING BLOOD PRESSURE 135/68 HEART RATE 60 RESPIRATORY RATE 16 TEMPERATURE 97.0. PATIENT IS SAMISH WITH HEARING AID. POSTURE IS FWD FLEX [...] CARE WILL BE ESTABLISHED THAT MEETS PATIENT'S LONG TERM NEEDS AND INCLUDES PATIENT GOAL FOR HOME [...] Outpatient NEW ADMISSION [facility] [id number] 2023-07-19 00:00:00 DISCHARGED /TRANSFERR ED TO A SHORT-[facility]PATIENT [facility] REMAINS INPATIENT AT TIME OF DISCHARGE REMAINS IN INPATIENT FACILITY AT END OF CERT PERIOD 59.26
== END 2024-10-24 12:06 | disposition home or self-care (01) ==
LOC: HO.LAB 12:05
PROVIDERS: PCP Physician Assistant Medical; Visit Provider Psychiatry & Neurology Psychiatry
DX: I10 Essential (primary) hypertension (principal); F33.2 Major depressive disorder, recurrent severe without psychotic features
CPT/HCPCS: 36415; 80053; 80164; 82140; 85025; 99212

== ENCOUNTER 2024-11-28 08:13 | Day surgery (SDC) | payer MEDICARE, MEDICAID, SELFPAY ==
[2024-11-21 15:11] VITALS: BMI 29.3
--- NOTE | 2024-11-24 14:44 | HO.ANESPROP2 ---
Documented by User: Kirsten Lawrence NP 11/24/24 14:44 HPI - Anesthesia Eval Consult details Narrative: 69yo M for Right Cataract Extraction IOL Insertion No previous cataract on record Fentanyl allergy SNF resident TBI Hx ETOH PMFSH Active Problems Active Problems: All Active Problems Sialorrhea (Acute) Personality disorder in adult (Acute) Dermatitis, unspecified (Acute) Acute colitis (Acute) Colitis (Acute) Toxic metabolic encephalopathy (Acute) Weakness (Acute) Hypotension (Acute) Lethargy (Acute) Cataracts, bilateral (Acute) Glaucoma (Acute) Major depression, recurrent, chronic (Acute) Cognitive and neurobehavioral dysfunction following brain injury (Acute) Major depressive disorder, recurrent severe without psychotic features (Acute) HTN (hypertension) (Acute) Past Medical History Medical History Resides in alf care facility Cataracts, bilateral Glaucoma Major depression, recurrent, chronic Sinusitis Aggressive behavior Alcohol use disorder, moderate, dependence TBI (traumatic brain injury) Anxiety TIA (transient ischemic attack) Hypertension Alcohol abuse Subdural hematoma Seizure disorder Depression 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, recurrent severe without psychotic features Major depressive disorder, recurrent HTN (hypertension) Hernia Family History Family History Other Family history unobtainable Family history of problems with anesthesia: No Surgical History Surgical History History of cholecystectomy H/O craniotomy H/O umbilical hernia repair History of hip replacement S/P cholecystectomy H/O brain surgery History of Problems with Anesthesia: No Social History Social History Household Members: None Household Members Other:: resides in [facility] Housing: [facility] Housing Other:: resides in [facility] Are you a primary field care coordinator to a significant other at home: No Do you presently have visiting nurse or other home services: Yes ([facility] staff) Alcohol intake: never Comment: wears shoes Patient Tobacco Use Status: Never used Tobacco e-Cigarette/Vaping Use: Never Used Second Hand Smoke Exposure: No Use of substances other than those prescribed or required for medical reasons: No Have you been hit, kicked, punched, or otherwise hurt by someone within the past year? If so, by whom?: No Spiritual Healthcare Practices: none Mandaeism Healthcare Practices: Buddhist Cultural Healthcare Practices: none Advance Directives: Yes Advance Directives Information Provided: Yes Advance Directives on File: Yes Advance Directives Date on File: 05/27/19 Recently lost weight without trying: No Eating poorly because of decreased appetite: No Nutrition Risks: No Nutritional Risk service: No Current occupational status: disabled Sexual orientation: Straight/Heterosexual Meds Allergies Allergy/AdvReac Type Severity Reaction Status Date / Time fentanyl [FENTANYL] Allergy Intermediate unknown Verified 04/29/24 11:06 Home Medications ?Medication ?Instructions ?Recorded ?Confirmed ?Last Taken ?Type dextran 70-hypromellose eye drops 1 drp ophthalmic (eye) Q2H PRN Dry 06/30/23 11/21/24 Unknown History in a dropperette (Artificial Tears Eyes (PF) drops in a dropperette) hydrocortisone 1 % topical cream 1 appl topical BID PRN itchy feet 06/30/23 11/21/24 Unknown History ondansetron HCl 4 mg tablet 4 mg PO Q6H PRN Nausea And Vomiting 06/30/23 11/21/24 Unknown History sennosides 8.6 mg tablet (Senna 17.2 mg PO BEDTIME PRN Constipation 06/30/23 11/21/24 Unknown History Lax) Exam Height,Weight and Vital Signs: Height 6 ft 1.62 in Weight 102.5 kg Assessment and Plan Assessment Anesthesia Assessment: Chart Reviewed Final Anesthetic Review Family History of Problems with Anesthesia: No History of Problems with Anesthesia: No Documented by User: Echo Rodgers MD 11/28/24 10:39 HPI - Anesthesia Eval Consult details Narrative: 69yo M for Right Cataract Extraction IOL Insertion No previous cataract on record Fentanyl allergy- unknown allergy [facility] resident TBI Hx ETOH PMFSH Past Medical History Medical History Resides in [facility] Cataracts, bilateral Glaucoma Major depression, recurrent, chronic Sinusitis Aggressive behavior Alcohol use disorder, moderate, dependence TBI (traumatic brain injury) Anxiety TIA (transient ischemic attack) Hypertension Alcohol abuse Subdural hematoma Seizure disorder Depression 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, recurrent severe without psychotic features Major depressive disorder, recurrent HTN (hypertension) Hernia Family History Family History Other Family history unobtainable Family history of problems with anesthesia: No Surgical History Surgical History History of cholecystectomy H/O craniotomy H/O umbilical hernia repair History of hip replacement S/P cholecystectomy H/O brain surgery History of Problems with Anesthesia: No Social History Social History Household Members: None Household Members Other:: resides in [facility] Housing: [facility] Housing Other:: resides in [facility] Are you a primary field care coordinator to a significant other at home: No Do you presently have visiting nurse or other home services: Yes ([facility] staff) Alcohol intake: never Comment: wears shoes Patient Tobacco Use Status: Never used Tobacco e-Cigarette/Vaping Use: Never Used Second Hand Smoke Exposure: No Use of substances other than those prescribed or required for medical reasons: No Have you been hit, kicked, punched, or otherwise hurt by someone within the past year? If so, by whom?: No Spiritual Healthcare Practices: none Mandaeism Healthcare Practices: Buddhist Cultural Healthcare Practices: none Advance Directives: Yes Advance Directives Information Provided: Yes Advance Directives on File: Yes Advance Directives Date on File: 05/27/19 Recently lost weight without trying: No Eating poorly because of decreased appetite: No Nutrition Risks: No Nutritional Risk service: No Current occupational status: disabled Sexual orientation: Straight/Heterosexual Meds Allergies Allergy/AdvReac Type Severity Reaction Status Date / Time fentanyl [FENTANYL] Allergy Intermediate unknown Verified 04/29/24 11:06 Home Medications ?Medication ?Instructions ?Recorded ?Confirmed ?Last Taken ?Type dextran 70-hypromellose eye drops 1 drp ophthalmic (eye) Q2H PRN Dry 06/30/23 11/21/24 Unknown History in a dropperette (Artificial Tears Eyes (PF) drops in a dropperette) hydrocortisone 1 % topical cream 1 appl topical BID PRN itchy feet 06/30/23 11/21/24 Unknown History ondansetron HCl 4 mg tablet 4 mg PO Q6H PRN Nausea And Vomiting 06/30/23 11/21/24 Unknown History sennosides 8.6 mg tablet (Senna 17.2 mg PO BEDTIME PRN Constipation 06/30/23 11/21/24 Unknown History Lax) Exam Height,Weight and Vital Signs: Height 6 ft 1.62 in Weight 102.5 kg Vital Signs Temp Pulse Resp BP Pulse Ox O2 Del Method 11/28/24 10:03 97.3 F 57 18 172/92 H 97 Room Air Airway Mallampati Class: III TM Dist: >3cm Neck ROM: Full Loose/Missing/Broken Teeth: No Heart: RRR Lungs: CTAB Assessment and Plan Assessment Anesthesia Assessment: Anesthesia Plan Discussed and Chart Reviewed Final Anesthetic Review Family History of Problems with Anesthesia: No History of Problems with Anesthesia: No NPO: Yes ASA Class: III Final Preanesthetic Review: No Changes in Pt Med Stat, Meds/Allgs Chart Reviewed, Consent Obtained/Reviewed and Anes Risks/Benef Reviewed Patient Risk: Intermediate Procedure Risk: Low Assessment/Block/Sedation in SS: Assess/Block/Sedation-SS Anesthetic Plan Anesthetic Plan: MAC: Disposition: Standard PACU
[2024-11-28 10:00] VITALS: BMI 28.9
[2024-11-28] MEDS: Tetracaine HCl/PF 0.5% Oph Sol 4 ML DROPS 1 DROP EYE-RIGHT (10:01)
[2024-11-28 10:03] VITALS: BP 172/92; PULSE 57; RESP 18; TEMP 36.3; O2SAT 97
[2024-11-28] MEDS: Cyclopentolate 1 % Ophth Sol 2 ML DRPBTL 1 DROP EYE-RIGHT ×3 (10:13→10:26)
[2024-11-28] MEDS: Tropicamide 1 % Ophth Sol 3 ML BTL 1 DROP EYE-RIGHT ×3 (10:15→10:28)
[2024-11-28] MEDS: Phenylephrine HCL 2.5% Oph SoL 2 ML BOTTLE 1 DROP EYE-RIGHT ×3 (10:17→10:30)
[2024-11-28] MEDS: Ketorolac Tromethamine 0.5% Op 10 ML DROPS 1 DROP EYE-RIGHT ×3 (10:17→10:29)
[2024-11-28] MEDS: Lactated Ringers 500 ML 50 ML IV (10:18)
--- NOTE | 2024-11-28 10:44 | MHC.SHP ---
Pre-Procedural Eval Section A - 24 Hr Update-Section A only Date of Service: 11/28/24 The patient is an INPATIENT: No Changes since office visit: No Cold of Flu in the past 2 weeks, No New Medical Problems, No Changes in Medication and No Patient answered all questions The patient has been examined within 24 hours of the surgical procedure. The History & Physical has been completed within 30 days and I have reviewed it.: Yes Section B - Complete if H&P > 30 days Chief Complaint: Age-related nuclear cataract, right eye Allergies: Allergies Allergy/AdvReac Type Severity Reaction Status Date / Time fentanyl [FENTANYL] Allergy Intermediate unknown Verified 04/29/24 11:06 Plan Diagnosis/Plan: Unchanged I have reviewed the history and physical and performed a pertinent physical examination on my patient. No changes have occurred unless specified. Time Spent With Patient Time: Total time managing care of this patient today ____ minutes.
--- NOTE | 2024-11-28 10:45 | P.PCNO_ITS ---
Ophthalmology Procedure Procedure Date of Service: 11/28/24 Ophthalmology Viscoelastic: Healon Duet Dual Pack Pro Ophthalmology Lenses: IOL Acrysof MP - [id number] (19.5) Procedure Notes: PREOPERATIVE DIAGNOSIS: Decreased visual acuity right eye secondary to cataract POSTOPERATIVE DIAGNOSIS: Same PROCEDURE: Right cataract extraction with intraocular lens insertion SURGEON: Rigoberto Toney M.D. ANESTHESIA: Topical/MAC ESTIMATED BLOOD LOSS: None COMPLICATIONS: None After obtaining informed consent, the patient was brought to the operating room suite and placed in the supine position. After adequate sedation per anesthesia, topical drops of Tetracaine were given to the right eye. The eye was then prepped and draped in the usual sterile fashion. The operating room microscope was then positioned over the operative eye and a lid speculum placed. A paracentesis was created. Viscoelastic was then instilled into the anterior chamber. A three plane incision was then created temporally, utilizing a 2.85 mm keratome. Capsulotomy forceps were then utilized to create a circular tear capsulotomy. Hydrodissection and hydrodelineation were carried out until adequate mobilization of the nucleus occurred. Phacoemulsification was then utilized to remove the dense central nu cleus followed by removal of the cortical material utilizing the automated aspiration irrigation unit. Viscoelastic was instilled into the posterior capsular bag followed by placement of a posterior chamber intraocular lens without difficulty. The residual Viscoelastic was then removed utilizing the automated IA machine. The wound was checked and found to be watertight. The patient tolerated the procedure well and the lid speculum was removed. Intracameral injection of Vigamox 0.1 mL followed by a subtenon injection of Kenalog-40 0.2 mL were administered. The patient will be seen in the a.m.
[2024-11-28 11:22] VITALS: BP 178/87; PULSE 64; RESP 17; TEMP 36.5; O2SAT 96
== END 2024-11-28 11:37 | disposition home or self-care (01) ==
PROVIDERS: Visit Provider Ophthalmology
PROC: (CPT 66985; principal; 2024-11-28 11:00)
DX: H25.11 Age-related nuclear cataract, right eye (principal); H52.4 Presbyopia; H40.10X4 Unspecified open-angle glaucoma, indeterminate stage; H50.10 Unspecified exotropia; I10 Essential (primary) hypertension; M06.9 Rheumatoid arthritis, unspecified; G81.04 Flaccid hemiplegia affecting left nondominant side; Z87.820 Personal history of traumatic brain injury; Z91.81 History of falling; F41.9 Anxiety disorder, unspecified; F10.21 Alcohol dependence, in remission; Z79.899 Other long term (current) drug therapy; Z88.5 Allergy status to narcotic agent
CPT/HCPCS: 66984; J2003; J2250; J3301; V2630

== ENCOUNTER 2024-12-01 11:06 | Outpatient (REF) | payer MEDICARE, MEDICAID, SELFPAY | END 2024-12-01 11:07 | disposition home or self-care (01) | LOC: HO.HAP 11:06 | PROVIDERS: Visit Provider Physician Assistant Medical | DX: Z46.1 Encounter for fitting and adjustment of hearing aid (principal); H90.A21 Sensorineural hearing loss, unilateral, right ear, with restricted hearing on the contralateral side; H90.A32 Mixed conductive and sensorineural hearing loss, unilateral, left ear with restricted hearing on the contralateral side | CPT/HCPCS: V5266 ==

== ENCOUNTER 2024-12-01 11:09 | Outpatient (REF) | payer SELFPAY | END 2024-12-01 11:10 | disposition home or self-care (01) | LOC: HO.HAP 11:09 | PROVIDERS: Visit Provider Physician Assistant Medical | DX: Z46.1 Encounter for fitting and adjustment of hearing aid (principal); H90.A21 Sensorineural hearing loss, unilateral, right ear, with restricted hearing on the contralateral side; H90.A32 Mixed conductive and sensorineural hearing loss, unilateral, left ear with restricted hearing on the contralateral side | CPT/HCPCS: V5267 ==

== ENCOUNTER 2024-12-12 09:09 | Day surgery (SDC) | payer MEDICARE, MEDICAID, SELFPAY ==
[2024-11-21 15:16] VITALS: BMI 29.3
--- NOTE | 2024-12-08 13:31 | P.CONAN_ITS ---
Documented by User: Kirsten Lawrence NP 12/08/24 13:32 HPI - Anesthesia Eval Consult details Narrative: 69yo M for Left Cataract Extraction IOL Insertion Right eye 11/28/24: Midaz 2, Lido 50 Fentanyl allergy- unknown allergy SNF resident TBI Hx ETOH PMFSH Active Problems Active Problems: All Active Problems Sialorrhea (Acute) Personality disorder in adult (Acute) Dermatitis, unspecified (Acute) Acute colitis (Acute) Colitis (Acute) Toxic metabolic encephalopathy (Acute) Weakness (Acute) Hypotension (Acute) Lethargy (Acute) Cataracts, bilateral (Acute) Glaucoma (Acute) Major depression, recurrent, chronic (Acute) Cognitive and neurobehavioral dysfunction following brain injury (Acute) Major depressive disorder, recurrent severe without psychotic features (Acute) HTN (hypertension) (Acute) Past Medical History Medical History Resides in [facility] care facility Cataracts, bilateral Glaucoma Major depression, recurrent, chronic Sinusitis Aggressive behavior Alcohol use disorder, moderate, dependence TBI (traumatic brain injury) Anxiety TIA (transient ischemic attack) Hypertension Alcohol abuse Subdural hematoma Seizure disorder Depression 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, recurrent severe without psychotic features Major depressive disorder, recurrent HTN (hypertension) Hernia Family History Family History Other Family history unobtainable Family history of problems with anesthesia: No Surgical History Surgical History History of cholecystectomy H/O craniotomy H/O umbilical hernia repair History of hip replacement S/P cholecystectomy H/O brain surgery History of Problems with Anesthesia: No Social History Social History Household Members: None Household Members Other:: resides in [facility] Housing: [facility] Housing Other:: resides in [facility] Are you a primary care companion to a significant other at home: No Do you presently have visiting nurse or other home services: Yes ([facility] staff) Alcohol intake: never Comment: wears shoes Patient Tobacco Use Status: Never used Tobacco e-Cigarette/Vaping Use: Never Used Second Hand Smoke Exposure: No Use of substances other than those prescribed or required for medical reasons: No Have you been hit, kicked, punched, or otherwise hurt by someone within the past year? If so, by whom?: No Spiritual Healthcare Practices: none Presybeterian Healthcare Practices: Islam Cultural Healthcare Practices: none Advance Directives: Yes Advance Directives Information Provided: Yes Advance Directives on File: Yes Advance Directives Date on File: 05/27/19 Poor oral hygiene: No service: No Current occupational status: disabled Sexual orientation: Straight/Heterosexual Meds Allergies Allergy/AdvReac Type Severity Reaction Status Date / Time fentanyl [FENTANYL] Allergy Intermediate unknown Verified 12/12/24 10:30 Home Medications ?Medication ?Instructions ?Recorded ?Confirmed ?Last Taken ?Type dextran 70-hypromellose eye drops 1 drp ophthalmic (eye) Q2H PRN Dry 06/30/23 11/21/24 Unknown History in a dropperette (Artificial Tears Eyes (PF) drops in a dropperette) hydrocortisone 1 % topical cream 1 appl topical BID PRN itchy feet 06/30/23 11/21/24 Unknown History ondansetron HCl 4 mg tablet 4 mg PO Q6H PRN Nausea And Vomiting 06/30/23 11/21/24 Unknown History sennosides 8.6 mg tablet (Senna 17.2 mg PO BEDTIME PRN Constipation 06/30/23 11/21/24 Unknown History Lax) Exam Height,Weight and Vital Signs: Height 6 ft 1.62 in Weight 102.5 kg Assessment and Plan Assessment Anesthesia Assessment: Chart Reviewed Final Anesthetic Review Family History of Problems with Anesthesia: No History of Problems with Anesthesia: No Documented by User: Britta Guerrero MD 12/12/24 10:46 PMFSH Past Medical History Medical History Resides in [facility] care facility Cataracts, bilateral Glaucoma Major depression, recurrent, chronic Sinusitis Aggressive behavior Alcohol use disorder, moderate, dependence TBI (traumatic brain injury) Anxiety TIA (transient ischemic attack) Hypertension Alcohol abuse Subdural hematoma Seizure disorder Depression 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, recurrent severe without psychotic features Major depressive disorder, recurrent HTN (hypertension) Hernia Family History Family History Other Family history unobtainable Surgical History Surgical History History of cholecystectomy H/O craniotomy H/O umbilical hernia repair History of hip replacement S/P cholecystectomy H/O brain surgery Social History Social History Household Members: None Household Members Other:: resides in [facility] Housing: [facility] Housing Other:: resides in [facility] Are you a primary care companion to a significant other at home: No Do you presently have visiting nurse or other home services: Yes ([facility] staff) Alcohol intake: never Comment: wears shoes Patient Tobacco Use Status: Never used Tobacco e-Cigarette/Vaping Use: Never Used Second Hand Smoke Exposure: No Use of substances other than those prescribed or required for medical reasons: No Have you been hit, kicked, punched, or otherwise hurt by someone within the past year? If so, by whom?: No Spiritual Healthcare Practices: none Presybeterian Healthcare Practices: Islam Cultural Healthcare Practices: none Advance Directives: Yes Advance Directives Information Provided: Yes Advance Directives on File: Yes Advance Directives Date on File: 05/27/19 Poor oral hygiene: No service: No Current occupational status: disabled Sexual orientation: Straight/Heterosexual Meds Allergies Allergy/AdvReac Type Severity Reaction Status Date / Time fentanyl [FENTANYL] Allergy Intermediate unknown Verified 12/12/24 10:30 Home Medications ?Medication ?Instructions ?Recorded ?Confirmed ?Last Taken ?Type dextran 70-hypromellose eye drops 1 drp ophthalmic (eye) Q2H PRN Dry 06/30/23 11/21/24 Unknown History in a dropperette (Artificial Tears Eyes (PF) drops in a dropperette) hydrocortisone 1 % topical cream 1 appl topical BID PRN itchy feet 06/30/23 11/21/24 Unknown History ondansetron HCl 4 mg tablet 4 mg PO Q6H PRN Nausea And Vomiting 06/30/23 11/21/24 Unknown History sennosides 8.6 mg tablet (Senna 17.2 mg PO BEDTIME PRN Constipation 06/30/23 11/21/24 Unknown History Lax) Exam Airway Mallampati Class: III TM Dist: <=3cm Neck ROM: Limited Heart: rrr Assessment and Plan Assessment Anesthesia Assessment: Anesthesia Plan Discussed Final Anesthetic Review NPO: Yes ASA Class: III Final Preanesthetic Review: No Changes in Pt Med Stat, Meds/Allgs Chart Reviewed and Consent Obtained/Reviewed Patient Risk: Intermediate Procedure Risk: Low Anesthetic Plan Anesthetic Plan: MAC: Disposition: Standard PACU
[2024-12-12] MEDS: Lactated Ringers 500 ML 50 ML IV (10:07)
[2024-12-12] MEDS: Phenylephrine HCL 2.5% Oph SoL 2 ML BOTTLE 1 DROP EYE-LEFT ×3 (10:08→10:19)
[2024-12-12] MEDS: Cyclopentolate 1 % Ophth Sol 2 ML DRPBTL 1 DROP EYE-LEFT ×3 (10:08→10:19)
[2024-12-12] MEDS: Ketorolac Tromethamine 0.5% Op 10 ML DROPS 1 DROP EYE-LEFT ×3 (10:08→10:20)
[2024-12-12] MEDS: Tetracaine HCl/PF 0.5% Oph Sol 4 ML DROPS 1 DROP EYE-LEFT (10:08)
[2024-12-12] MEDS: Tropicamide 1 % Ophth Sol 3 ML BTL 1 DROP EYE-LEFT ×3 (10:08→10:20)
[2024-12-12 10:29] VITALS: BP 176/97; PULSE 57; RESP 18; TEMP 36.6; O2SAT 96
--- NOTE | 2024-12-12 10:50 | MHC.SHP ---
Pre-Procedural Eval Section A - 24 Hr Update-Section A only Date of Service: 12/12/24 The patient is an INPATIENT: No Changes since office visit: No Cold of Flu in the past 2 weeks, No New Medical Problems, No Changes in Medication and No Patient answered all questions The patient has been examined within 24 hours of the surgical procedure. The History & Physical has been completed within 30 days and I have reviewed it.: Yes Section B - Complete if H&P > 30 days Chief Complaint: Age-related nuclear cataract, left eye Allergies: Allergies Allergy/AdvReac Type Severity Reaction Status Date / Time fentanyl [FENTANYL] Allergy Intermediate unknown Verified 12/12/24 10:30 Plan Diagnosis/Plan: Unchanged I have reviewed the history and physical and performed a pertinent physical examination on my patient. No changes have occurred unless specified. Time Spent With Patient Time: Total time managing care of this patient today ____ minutes.
--- NOTE | 2024-12-12 10:51 | HO.PNOPHT ---
Ophthalmology Procedure Procedure Date of Service: 12/12/24 Ophthalmology Viscoelastic: Healon Duet Dual Pack Pro Ophthalmology Lenses: IOL Acrysof MP - [id number] (20) Procedure Notes: PREOPERATIVE DIAGNOSIS: Decreased visual acuity left eye secondary to cataract POSTOPERATIVE DIAGNOSIS: Same PROCEDURE: Left cataract extraction with intraocular lens insertion SURGEON: Rigoberto Toney M.D. ANESTHESIA: Topical/MAC ESTIMATED BLOOD LOSS: None COMPLICATIONS: None After obtaining informed consent, the patient was brought to the operation room suite and placed in the supine position. After adequate sedation per anesthesia, topical drops of Tetracaine were given to the left eye. The eye was then prepped and draped in the usual sterile fashion. The operating room microscope was then positioned over the operative eye and a lid speculum placed. A paracentesis was created. Viscoelastic was then instilled into the anterior chamber. A three plane incision was then created temporally, utilizing a 2.85 mm keratome. Capsulotomy forceps were then utilized to create a circular tear capsulotomy. Hydrodissection and hydrodelineation were carried out until adequate mobilization of the nucleus occurred. Phacoemulsification was then utilized to remove the dense central nucleus followed by removal of the cortical material utilizing the automated aspiration irrigation unit. Viscoat elastic was instilled into the posterior capsular bag followed by placement of a posterior chamber intraocular lens without difficulty. The residual Viscoat elastic was then removed utilizing the automated IA machine. The wound was check and found to be watertight. The patient tolerated the procedure well and the lid speculum was removed. Intracameral injection of Vigamox 0.1 mL followed by a subtenon injection of Kenalog-40 0.2 mL were administered. The patient will be seen in the a.m.
[2024-12-12 11:23] VITALS: BP 172/82; PULSE 63; RESP 16; TEMP 36.1; O2SAT 99
== END 2024-12-12 11:41 | disposition home or self-care (01) ==
PROVIDERS: PCP Physician Assistant Medical; Visit Provider Ophthalmology
PROC: (CPT 66985; principal; 2024-12-12 11:30)
DX: H25.12 Age-related nuclear cataract, left eye (principal); H52.4 Presbyopia; H40.10X4 Unspecified open-angle glaucoma, indeterminate stage; H50.10 Unspecified exotropia; I10 Essential (primary) hypertension; M06.9 Rheumatoid arthritis, unspecified; G81.04 Flaccid hemiplegia affecting left nondominant side; F33.2 Major depressive disorder, recurrent severe without psychotic features; F41.9 Anxiety disorder, unspecified; Z86.73 Personal history of transient ischemic attack (TIA), and cerebral infarction without residual deficits; Z79.899 Other long term (current) drug therapy; Z88.5 Allergy status to narcotic agent
CPT/HCPCS: 66984; J2250; J3301; V2630

== ENCOUNTER 2024-12-29 10:14 | Outpatient (AMB) | payer MEDICARE, MEDICAID, SELFPAY ==
--- NOTE | 2024-12-29 10:26 | A.OFFVIS_ITS ---
Intake Visit Reasons: Testicular Pain/Swelling/BPH Intake Note: Patient is present for TESTICULAR PAIN/SWELLING/BPH Urology Medication:FINASTERIDE Antibiotic Allergy:NONE Blood Thinner:NONE TODAY'S PVR:337ML'S Nike Athlete Required: No Allergies fentanyl [FENTANYL] Allergy (Intermediate, Verified 12/29/24 10:28) unknown HPI Comments Details: Samanta is a male. He is a patient of . He seen for following urologic conditions - lower urinary tract symptoms - testicular pain Testicular pain since September On examination has sensitivity on bilateral epididymis Trial doxycycline 14 days Denies bladder emptying issues Lower urinary tract symptoms with incomplete emptying On tamsulosin and finasteride Cognitive depression with significant use of anticholinergic medications [facility] Medical History (Updated 12/29/24 @ 10:54 by Rik Zhong MD) Inflammatory disorders of scrotum Chronic obstructive pulmonary disease, unspecified Secondary parkinsonism, unspecified Hypothyroidism, unspecified Thrombocytopenia, unspecified Acute insomnia Intermittent urinary incontinence BPH (benign prostatic hyperplasia) Resides in [facility] Cataracts, bilateral Glaucoma Major depression, recurrent, chronic Sinusitis Aggressive behavior Alcohol use disorder, moderate, dependence TBI (traumatic brain injury) Anxiety TIA (transient ischemic attack) Hypertension Alcohol abuse Subdural hematoma Seizure disorder Depression 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, recurrent severe without psychotic features Major depressive disorder, recurrent HTN (hypertension) Hernia Surgical History History of cholecystectomy H/O craniotomy H/O umbilical hernia repair History of hip replacement S/P cholecystectomy H/O brain surgery Family History Other Family history unobtainable Social History Household Members: None Household Members Other:: resides in long-term Housing: Custodial Housing Other:: resides in long-term Are you a primary nonfarm animal caretaker to a significant other at home: No Do you presently have visiting nurse or other home services: Yes (long-term staff) Alcohol intake: never Comment: wears shoes Patient Tobacco Use Status: Never used Tobacco e-Cigarette/Vaping Use: Never Used Second Hand Smoke Exposure: No Advance Directives Date on File: 05/27/19 service: No Current occupational status: disabled Sexual orientation: Straight/Heterosexual Review of Systems Const Denies chills and Denies fever(s) Card Reports no additional complaints and Denies syncope Resp Denies cough GI Denies abdominal pain and Denies heartburn Reports as per HPI and Denies change in libido Neuro Denies syncope Psych Denies change in libido Endo Denies change in libido Physical Exam Const General: cooperative, healthy appearing, comfortable and no acute distress Orientation/consciousness: patient oriented x3 HEENT Face and sinus: Yes normal facial exam Mouth: moist mucous membranes Neck Neck: Yes normal visual inspection, Yes full ROM and Yes trachea midline Chest Chest palpation & inspection: normal inspection of the chest Resp Effort & Inspection: normal respiratory effort, able to speak in complete sentences and no respiratory distress GI Inspection: Yes normal to inspection Back/Spine/Pelvis Cervical Spine: normal cervical lordosis Thoracic/Lumbar Spine: thoracic and lumbar spine normal to inspection Skin General skin exam: no rashes or lesions noted Neuro General: patient oriented x3, gait normal, tone normal and moves all extremities Extrem General: Yes normal to inspection and Yes capillary refill normal Office Procedures Post Void Residual Post Residual Void Post Void Residual (PVR): 337 [id number]-Mtbl Void Residual by ultrasound Assessment & Plan Assessment & Plan (1) Epididymitis: Code(s): N45.1 - Epididymitis Category: Medical (2) BPH (benign prostatic hyperplasia): Code(s): N40.0 - Benign prostatic hyperplasia without lower urinary tract symptoms Category: Medical Plan Six-month follow-up Medications: New doxycycline hyclate 100 mg PO BID 14 days 28 tabs 0RF N39.0 - Urinary tract infection, site not specified, N45.1 - Epididymitis Patient Instructions: This note is constructed using voice recognition software. While every effort has been made to ensure accuracy fireworks inspector errors may have been included. Imaging studies, laboratory and physical exam results were discussed and reviewed in detail. No major barriers to patient understanding were identified. An opportunity to ask questions regarding the treatment plan was provided. All questions were answered. The patient expressed understanding and agreement with the above treatment plan. The patient is aware they should contact our office by phone for worsening of their current condition or the appearance of new urologic symptoms. Compliance is encouraged with any medications and followup testing that is ordered. It is a privilege to participate in the urologic care of your patient. If you have any questions or concerns regarding treatment for the above conditions, or other urologic issues, please do not hesitate to contact me. The office telephone contact is [phone]. Sincerely, Dr Rik Zhong MD, [facility] - Urology Compassionate Specialist Care for the Genitourinary System Coding Level of Care Code New Pt Level 4 (18741) Diagnoses Epididymitis N45.1 BPH (benign prostatic hyperplasia) N40.0 CPT Codes Post Residual Void - PVR CPT Code: 73052-Jaxh Void Residual by ultrasound ([id number])
--- OUTSIDE RECORDS SUMMARY | 2024-12-29 11:10 | XMS_ITS ---
Author Organization [facility] Address [address] [place] [address] Care Team Providers Care Guard Chief Name Role Phone Wilmer Enciso MD Primary Care Provider Unavail able Corbin Swanson Unavailable [phone] REASON FOR VISIT Would like to schedule a colon Encounters Encounter Location Date Provider Diagnosis [facility] [address] [place] [address] 10/18/2024 Corbin Swanson PLAN OF TREATMENT No Information
--- OUTSIDE RECORDS SUMMARY | 2024-12-29 11:10 | XMS_ITS ---
Author Organization [facility] Address [address] [place] [id number] Care Team Providers Care Client Services Vice President Name Role Phone Wilmer Enciso MD Primary Care Provider Unavail able Corbin Swanson Unavailable [phone] ALLERGIES Allergen (clinical drug ingredient) Drug/Non Drug Allergy documented on EMR Reaction Allergy Type Onset Date Status fentanyl Fentanyl Unknown Drug Allergy Active REASON FOR VISIT pt presents today for vomitting MEDICATIONS Medication SIG (Take, Route, Frequency, Duration) Notes Start Date End Date Status Preparation H 1 % 1 Externally Once a day as needed for anal or rectal pain for 30 days 09/23/2023 Active Metamucil 48.57 % 1 Tablespoon in at l east 8 ounces of fluids Orally Once or Twice a day for constipation for 30 days 09/01/2022 Active Senna 8.6 MG 1 capsule each eveni ng Orally Once a day for 30 day(s) Active Senna 8.6 MG 2 Tablets Orally At 8:00 PM for 30 day(s) 12/08/2023 Active Polyethylene Glycol 3350 17 GM 1 packet mixed with 8 ounces of fluid Orally Twice a day for 30 days 12/20/2023 Active MiraLax 17 GM/SCOOP 1 scoop with 17 GM O rally daily at 4PM on a daily and regular basis, and then also QAM as needed for constipation in addition to the 4PM dose if needed for 30 days 04/01/2022 Active Trintellix 20 MG 1 tablet Orally Once a day Active Colace 100 MG 1 Orally Every eveni ng at bedtime for 30 day(s) 07/23/2022 Active Metamucil 48.57 % 1 Tablespoon Orally once or twice a day mixed in 8 ounces of water or OJ for constipation for 30 days 06/05/2022 Active GNP Natural Fiber 0.52 GM Oral for 28 Active MiraLax - 17 Grams Orally QAM for 30 days 01/08/2020 Active Finasteride 5 MG Oral for 30 A ctive MiraLax - 17 Grams Orally Q PM PRN constipation for 30 days 01/08/2020 Active Nortriptyline HCl 75 MG as directed Orally Active Melatonin 5 MG Oral for 30 Act sade Lisinopril Active Lidocaine 5 % 1 patch to skin mina ve after 12 hours Externally prn 12H Active Colace 100 MG 1 capsule as needed Orally Once a day Active MiraLax - 1 packet mixed with 8 ounces of fluid Orally Once a day Active Artificial Tears 1-0.3 % 1 drop into aff ected eye as needed Ophthalmic 24 time(s) a day Active Ativan 0.5 MG 1 tablet as needed O rally twice a day Active QUEtiapine Fumarate 75 mg 1 tablet Orall y twice a day Active Tylenol 8 Hour 650 MG 1 tablet as needed Orally every 8 hrs Active traZODone HCl 150 MG 1 tablet at bedtime Orally hs Active Ventolin HFA 108 (90 Base) MCG/ACT 2 puffs as needed Inhalation every 6 hrs Active LaMICtal 150 MG 1 tablet Orally Twic e a day Active Sinemet 25-100 MG 1 tablet Orally Thre e times a day Active Centrum Silver - one tablet Orally on ce a day Active Xalatan 0.005 % 1 drop into affected eye in the evening Ophthalmic Once a day Active Proscar 5 MG 1 tablet Orally Once a day Active amLODIPine Benzoate 1 MG/ML 5 ml Orally Once a day Active Ondansetron HCl 4 MG 1 tablet Orally Onc e a day for 30 day(s) Active Hydrocortisone 1 % 1 application It Technical Specialist ally Once a day Active Ibuprofen 800 MG 1 tablet with food o r milk as needed Orally every 8 hrs Active Guaifenesin DM Cough & Chest Active Propranolol HCl 20 MG/5ML 5 mL Orally On ce a day for 30 day(s) Active Bisacodyl Laxative 10 MG 1 suppository a s needed Rectal Once a day for 30 day(s) Active Anusol-HC 2.5 % 1 application It Technical Specialist ally Twice a day Active Artificial Tear Solution - as directed Ophthalmic Active Magnesium Hydroxide 2400 MG/10ML 5 mL Orally Twice a day for 30 day(s) Active Nystatin 960201 UNIT/ML 4 mL Mouth/Throa t Four times a day for 14 day(s) Active Linzess 145 MCG 1 capsule at least 3 0 minutes before the first meal of the day on an empty stomach Orally Once a day for 30 day(s) Active OLANZapine 2.5 MG 1 tablet Orally Once a day for 30 day(s) Active Naltrexone HCl 50 MG 1 tablet Orally Onc e a day for 30 day(s) Active ALPRAZolam 0.5 MG 1 tablet Orally Twic e a day Active Zolpidem Tartrate 5 MG 1 tablet under th e tongue and allow to dissolve at bedtime as needed Sublingual Once a day Active Ondansetron 4 MG 1 tablet on the tong ue and allow to dissolve Orally Every 6 hours as needed for nausea for 30 day(s) 08/25/2024 Active hydrOXYzine HCl 25 MG 1 tablet as needed Orally Once a day for 30 day(s) Active SOCIAL HISTORY Tobacco Use: Social History Observation [...] W/U Status Risk SNOMED Code Notes Problem Acute gastroenteritis (K52.9) Active confirmed Acute gastroenteritis (76213844) VITAL SIGNS BMI 29.53 kg/m2 08/25/2024 Blood pressure systolic 00 mm Hg 08/25/20 24 Blood pressure diastolic 00 mm Hg 024 Height 74 in 08/25/2024 Weight 230 lbs 08/25/2024 Encounters Encounter Location Date Provider Diagnosis [facility] [address] [place] [id number] 08/25/2024 Corbin Swanson Acute gastroenteriti s K52.9 ; Alcoholic liver disease K70.9 ; Alcoholic cirrhosis of liver without ascites K70.30 and Constipation, unspecified constipation type K59.00 ASSESSMENTS Encounter Date Diagnosis Assessment Notes Treatment Notes Treatment Clinical Notes 08/25/2024 Acute gastroenteriti s (ICD-10 - K52.9) Continue Zofran as needed We will get copies of the [facility] ER visit in 07/202408/25/2024 Alcoholic liver disease (ICD-10 - K70.9) 08/25/2024 Alcoholic cirrhosis of liver without ascites (ICD-10 - K70.30) 08/25/2024 Constipation, unspecified constipation type (ICD-10 - K59.00) PLAN OF TREATMENT Medication Medication Name Sig Start Date Stop Date Notes Ondansetron 4 MG 1 tablet on the tong ue and allow to dissolve Orally Every 6 hours as needed for nausea for 30 day(s) 08/25/2024 Treatment Notes Assessment Notes Acute gastroenteritis Continue Zofran as needed We will get copies of the [facility] ER visit in 07/2024 Next Appt Details Follow Up: prn, Reason: Progress Notes * Examination Category Sub-Category Detail Notes General Examination GENERAL APPEARANCE: pleasant , well nourished, well developed, in no acute distress--in a wheelchair EYES: sclera non-icteric NECK/THYROID: no cervical lymphade nopathy, neck supple HEART: S1, S2 normal LUNGS: clear to auscultatio n bilaterally ABDOMEN: normal bowel sounds, no guarding or rigidity, no guarding or rigidity, no masses palpable, soft, nontender, nondistended NEUROLOGIC: alert and oriented SKIN: nonjaundiced, no spi srinath angiomata ORAL CAVITY: mucosa moist
--- OUTSIDE RECORDS SUMMARY | 2024-12-29 11:10 | XMS_ITS | Data Portability ---
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 he was admitted for aspiration pneumonia/ sepsis, urinary retention. pt states cough is dry. no cp, sob, wheezing or fever. pt denies any nasal congestion, sore throat, abdominal pain, vomiting, diarrhea, edema, weight gain. Vital Signs: BP 128/74, HR 81, RR 18, T 97.1, O2 97% RA Exam: 67 y/o male well appearing, alert NAD sitting in his wheelchair in the living room. lungs: CTAB no wheezes rales or rhonchi. heart: RRR no murmur rubs or gallops. no peripheral edema. mouth: moist mucous membranes, no erythema, uvula is midline. skin: warm and dry no rashes or lesions. DDx considered, with rationale: PE: considered but no hypoxia or tachycardia. CHF: considered but lungs are clear no peripheral edema or reported weight gain. Covid: considered but he is afebrile and has had cough x 1 month. Sepsis: considered but he is afebrile, VS stable, he does not appear septic. Results/ work up: CXR pending to follow up on previous aspisration pneumonia. Proper Personal Protective Equipment (PPE), including gloves, eye protection and masks were donned and doffed appropriately and all equipment cleaned using approved technique with germicidal disposable wipes prior to and after care of this patient according to [facility]'s infection prevention protocols. [email or web address] Not available 08/07/2023 09:53:47 Plan of Treatment Reminders Order Date Submit Date Provider Last Modified By Organization Details Last Modified Time Details Appointments None recorded. Lab None recorded. Referral None recorded. Procedures None recorded. Surgeries None recorded. Imaging XR, chest, 2 view - hx aspiration pneumonia in June 242022 023 [facility] ([employer]), [address] [facility], [place], [address], 14:04:05 Medication Orders None recorded. Patient TargetsNo targets recorded. Patient Instructions Encounter Date Encounter Id Patient Instructions Last Modified By Organization Details Last Modified Time 08/07/2023 [id number] Inhaler Instructions Before use, you need to prime the inhaler: ? Take the cap off the mouthpiece and put the inhaler in the spacer ? Shake the inhaler for 5 seconds ? Hold the inhaler upright with 1 finger on the top of the canister, the thumb on the bottom of the inhaler, and your other hand holding the spacer ? Express a large breath ? Close lips around spacer ? Press down on the canister ? After you press down on the canister, breathe (or have your child breathe in) deeply and slowly and hold your breath for 10 seconds ? Take out of your mouth and slowly exhale ? If you were instructed to take 2 puffs of the inhaler, wait one minute before you give the second puff. Shake the inhaler again before the second puff. ? If the inhaler is a steroid medicine (also called a ? g lucocorticoid? or ? c orticosteroid? ), rinse out your mouth, gargle, and spit out the water Cleaning: If you use the inhaler every day, you need to clean it at least once a week. If you use less often, clean the inhaler when you see powder in or around the hole. To clean an inhaler: ? Remove the canister and cap from the mouthpiece. Do not wash the canister or put the canister under water. ? Run warm water through the mouthpiece for 30 to 60 seconds ? Shake the water off of the mouthpiece and let it air dry Clean the spacer every 1-2 weeks. First, remove the inhaler from the spacer. Wash the spacer with warm water and dishwashing soap, but do NOT rinse it. Then let it air dry. Leaving the spacer a little soapy after cleaning actually helps it work better. [email or web address] Not available 08/07/2023 09:29:49 Reason for Referral None Reported. Results Created Date Observation Date Name Description Value Unit Range Abnormal Flag Note LastModifiedBy Organization Detail LastModifiedTime 08/07/2008/07/2023 XR, chest , 1 view XRAY CHEST 1 VIEW FINDIN GS: AP erect examin ation demons trates no infilt rates. The heart is not enlarg ed. Normal hilar and medias tinal struct ures. Vascul arity is normal . CONCLU AMANDA: No active diseas e. No eviden ce of pneumo radha or conges tive heart failur e. ELECTR ONICAL LY SIGNED BY ENRICO GAMBLE M.D. 023 3:35:2 0 PM EDT. XRAY CHEST 1 VIEW Result s: AP erect examin ation demons trates no infilt rates. The heart is not enlarg ed. Normal hilar and medias tinal struct ures. Vascul arity is normal . Conclu amanda: No active diseas e. No eviden ce of pneumo radha or conges tive heart failur e. Electr onical ly signed by ENRICO GAMBLE M.D. 023 3:35:2 0 PM EDT. [email or web address] [facility] [address] [facility] [address], [place], [address], 08/08/2023 12:17:49 Result Notes None recorded. Procedures Surgical History Date Name Laterality Status Provider Name and Address Organization Details Recorded Time Cholecystectomy completed MICHELE Petersone, [place], [address], [place] [facility] 08/07/2023 09:11:13 Hernia Repair completed MICHELE Peterson [address], [place], [address], [place] [facility] 08/07/2023 09:11:21 operative procedure on knee completed MICHELE Peterson [address], [place], [address], [place] [facility] 08/07/2023 09:11:29 total replacement of hip completed MICHELE Peterson [address], [place], [address], [place] [facility] 08/07/2023 09:11:40 Imaging Results Imaging Date Name Status LastModified by Organiz ation Details LastModified Time 08/07/2023 XR, chest, 1 view completed [address] [facility] [address], [place], [address], 08/08/2023 12:17:49 Procedure Notes None recorded. Medical Equipment None Reported. Allergies Allergen ID Allergen Name Allergen Category Reaction Reaction Severity Criticality Documentation Date Start Date Code Code System Note Provider Name and Address Organization Details Recorded Time 112346 fentanyl medicatio n Not available Not available Not available 08/07/2023 4337 RxNorm MICHELE Peterson [address] [place], [address], [place] [facility] 09:[facility]:10 Medications Name Sig Start Date Stop Date Status Note LastModified by Organization Details LastModified Time quetiapine 25 mg tablet 08/07 completed Not Available Not Available Not Available latanoprost 0.005 % eye drops active Not Available Not Available Not Available acetaminophen 325 mg tablet active Not Available Not Availabl e Not Available lamotrigine 200 mg tablet 08/07 completed Not Available Not Available Not Available divalproex 250 mg tablet,delaye d release active Not Available Not Available No t Available polyethylene glycol 3350 17 gram oral powder packet active Not Available Not Availabl e Not Available oxybutynin chloride ER 10 mg tablet,extend ed release 24 hr 08/07 completed Not Available Not Available Not Available senna 8.6 mg tablet active Not Available Not Available Not Available naltrexone 50 mg tablet active Not Available Not Available No t Available lisinopril 20 mg tablet 08/07 completed Not Available Not Available Not Available propranolol ER 60 mg capsule,24 hr,extended release 08/07 completed Not Available Not Available Not Available gabapentin 400 mg capsule 08/07 completed Not Available Not Available Not Available olanzapine 5 mg tablet 08/07 completed Not Available Not Available Not Available Milk of Magnesia 400 mg/5 mL oral suspension active Not Available Not Available N ot Available hydralazine 25 mg tablet 08/07 completed Not Available Not Available Not Available amlodipine 2.5 mg tablet 08/07 completed Not Available Not Available Not Available metronidazole 500 mg tablet 08/07 completed Not Available Not Available Not Available amlodipine 5 mg tablet active Not Available Not Available No t Available olanzapine 2.5 mg tablet active Not Available Not Availabl e Not Available quetiapine 100 mg tablet 08/07 completed Not Available Not Available Not Available nortriptyline 25 mg capsule 08/07 completed Not Available Not Available Not Available hydrocortison e 2.5 % topical cream with perineal applicator active Not Available Not Available N ot Available alprazolam 0.5 mg tablet active Not Available Not Availabl e Not Available alprazolam 0.25 mg tablet active Not Available Not Available Not Available tamsulosin 0.4 mg capsule active Not Available Not Available Not Available trazodone 100 mg tablet active Not Available Not Available No t Available nortriptyline 75 mg capsule active Not Available Not Availabl e Not Available bisacodyl 10 mg rectal suppository active Not Available Not Available Not Available trazodone 150 mg tablet 08/07 completed Not Available Not Available Not Available pramipexole 0.25 mg tablet 08/07 completed Not Available Not Available Not Available hydroxyzine HCl 25 mg tablet Take 1 tablet 3 times a day by oral route. active Not Available Not Available No t Available capsaicin 0.025 % topical cream active Not Available Not Availabl e Not Available zolpidem 5 mg tablet active Not Available Not Available Not Available nystatin 100,000 unit/gram topical powder active Not Available Not Available Not Available ibuprofen 600 mg tablet active Not Available Not Available No t Available cefuroxime axetil 500 mg tablet 08/07 completed Not Available Not Available Not Available polyethylene glycol 3350 17 gram/dose oral powder 08/07 completed Not Available Not Available Not Available propranolol 20 mg tablet active Not Available Not Available Not Available ketoconazole 2 % topical cream active Not Available Not Available Not Available clotrimazole 1 % topical cream active Not Available Not Available Not Available divalproex 125 mg capsule,delay ed release sprinkle active Not Available Not Available Not Available finasteride 5 mg tablet 08/07 completed Not Available Not Available Not Available Vivitrol 380 mg intramuscular suspension,ex tended release INJECT 1 VIAL IN THE MUSCLE EVERY 4 WEEKS active Not Available Not Available No t Available quetiapine 50 mg tablet 08/07 completed Not Available Not Available Not Available lidocaine 5 % topical ointment active Not Available Not Available Not Available Anika-Mucil (aspartame) 3.4 gram/5.8 gram oral powder 08/07 completed Not Available Not Available Not Available vortioxetine 10 mg tablet Take 1 tablet every day by oral route. active Not Available Not Available No t Available Trintellix 5 mg tablet 08/07 completed Not Available Not Available Not Available Vitals Date Recorded Oxygen saturation Oxygen saturation in Arterial blood by Pulse oximetry Body temperature Heart rate Respiratory rate Systolic blood pressure Diastolic blood pressure Provider Name and Address Organization Details Last Updated DateTime 3 97 % 97 % 97.1 [degF] 81 /min 18 /min 128 mm[Hg] 74 mm[Hg] Not Available [facility] 09:11:51 Social History Question Answer Notes LastModified by Organizat ion Details LastModified Time Tobacco Smoking Status Never Smoker MICHELE Peterson [address] [facility] [place], [address], [place] [facility] 08/07/2023 09:10:04 What Is Your Level Of Alcohol Consumption? None [email or web address] Information not available 08/07/2023 Fall Risk: Do You Feel Unsteady When Standing Or Walking? Yes [email or web address] Information not available 08/07/2023 Excessive Alcohol Or Drug Use No Information not available 08/07/2023 Does This Patient Have A PCP? Yes Information not available 08/07/2023 Has The Patient Seen Their PCP In The Past 6 Months? Yes [email or web address] Information not available 08/07/2023 ADL: Do You Need Help With Daily Activities Such As Bathing, Preparing Meals, Dressing, Or Cleaning? Yes (Z74.1) [email or web address] Information not available 08/07/2023 What Is Your Housing Situation Today? I Have Housing [email or web address] Information not available 08/07/2023 Do You Use Any Illicit Or Recreational Drugs? No [email or web address] Information not available 08/07/2023 Sex: Unknown Functional Status None recorded. Mental Status None recorded. Family History Nothing Reported. Medical History Condition Response Coronary Artery Disease N Parkinson's Disease N COPD N Depression Y Hypothyroidism N A-fib N Diabetes N CHF N Cancer N Stroke N Dementia N Asthma N High Cholesterol Y Rheumatoid Arthritis Y Pulmonary Embolism N Hypertension Y Osteoporosis N Kidney Disease N Past Encounters Encounter ID Performer Location Encounter Start Date Encounter Closed Date Diagnosis/Indication Diagnosis SNOMED-CT Code Diagnosis ICD10 Code Diagnosis Note [id number] MICHELE Peterson [facility] [address] [place] [address] 08/07/2023 08:58:44 08/19/2023 22:31:59 Pneumonia 029627496 J18.9 Status of condition: {{Acute* E xacerbatio n/Acute on chronic Ch ronic Stab le Worseni ng/Progres amanda Uncon trolled Cr itical: Warrants escalation to ED. Undete rmined: Unclear staging of condition. Needs further evaluation and management by PCP and/or Specialist }}. Testing/Re sults: follow up CXR pending. Discussion :pt was hospitaliz ed and tx for aspiration pneumonia 06/2023. he has not been able to follow up with pcp since.pt still has dry cough.CXR ordered to be sure pneumonia has resolved.k eep hydrated.o k to take robitussin dm as prescribed if needed for cough. Plan, Medication Management & Follow-up recommenda tions:foll ow up with pcp in 5-7 days or sooner prn.go to the ER with worsening symptoms fever, cp, sob, wheezing, weight gain, edema, lethargy, weakness, dizziness, vomiting. Essential hypertension [id number] I10 Status of condition: {{Acute Ex acerbation /Acute on chronic Ch ronic* Sta ble Worsen ing/Progre ssion Unco ntrolled C ritical: Warrants escalation to ED. Undete rmined: Unclear staging of condition. Needs further evaluation and management by PCP and/or Specialist }}. Testing/Re sults: BP 128/74 on scene. Discussion : BP controlled on current regimen. he is asymptomat ic. Plan, Medication Management & Follow-up recommenda tions:foll ow up with pcp next week as scheduled. go to the ER with worsening symptoms cp, sob, weakness, dizziness, HAs, edema, vision changes. [id number] MICHELE Peterson [facility] [address] [place] [place] [address] 08/07/2023 09:00:31 08/10/2023 12:56:52 Health Concerns Section Related Observation LastModified by Organization Detai ls LastModified Time None Recorded Concern Status LastModified by Organization Details LastModified Time None Recorded Advance Directives Directive None Recorded Payers Encounter Date Sequence Insurance Name Policy Number Policy Hernandez Covered Member ID Hernandez Member ID Guarantor Name 08/07/2023 1 [place] [facility] Samanta Barros [id number] Samanta Barros 08/07/2023 2 [place] [facility] Samanta Barros [id number] Samanta Barros 08/07/2023 1 [place] [facility] Samanta V [place] [id number] Samanta Barros 08/07/2023 2 [place] [facility] Samanta Barros [id number] Samanta Barros Notes Date Note Type Note Provider Name and Address Organization Details Recorded Time 08/07/2023 text/html 67 y/o male new to and provider with hx of depression, HTN, hyperlipidemia, RA, Epilepsy, left hemiplegia, hand tremors, alcohol abuse, GERD, BPH, Bipolar, chronic pain, glaucoma, urinary retention, hx of traumatic subdural hemorrhage. pt was admitted to [facility] on 06/30-07/07 with dx of aspiration, pneumonia, severe sepsis, hematuria, urinary retention. pt has been home now for a month and still has cough. pt states cough is dry. he denies fever, nasal congestion, sore throat, body aches, abdominal pain, nausea, vomiting. he denies cp, sob, wheezing, hemoptysis. caregiver reports his appetite is okay, but pt has been more tired. no dysuria, decreased urinary output. caregiver reports pt had apt with his psychiatrist a couple days ago and labs were done at that visit- cbc, comp chem, depakote and nortryptyline level. pt has pcp follow up next week. pt and caregiver most concerned with persistent cough. caregiver reports cough does sound better today than yesterday. pt has not taken any robitussin DM as he has not felt he needed it. MICHELE Peterson [address], [place], [address], [place] [facility] 08/07/2023 09:59:26 08/07/2023 text/html duplicate chart, see other note from 08/07/23. MICHELE Peterson [address], [place], [address], [place] [facility] 08/07/2023 10:01:52
--- OUTSIDE RECORDS SUMMARY | 2024-12-29 11:10 | XMS_ITS | Patient Health Record ---
Author Organization [facility] Address [address] [place] [phone] Care Team Providers Care Maintenance Construction Helper Name Role Phone Wilmer Enciso MD Primary Care Provider Unavail able Corbin Swanson Unavailable [phone] ALLERGIES Allergen (clinical drug ingredient) Drug/Non Drug Allergy documented on EMR Reaction Allergy Type Onset Date Status fentanyl Fentanyl Unknown Drug Allergy Active REASON FOR REFERRAL No Information MEDICATIONS Medication SIG (Take, Route, Frequency, Duration) Notes Start Date End Date Status LaMICtal 150 MG 1 tablet Orally Twic e a day Active Preparation H 1 % 1 Externally Once a day as needed for anal or rectal pain for 30 days 09/23/2023 Active Sinemet 25-100 MG 1 tablet Orally Thre e times a day Active Metamucil 48.57 % 1 Tablespoon in at l east 8 ounces of fluids Orally Once or Twice a day for constipation for 30 days 09/01/2022 Active Ativan 0.5 MG 1 tablet as needed O rally twice a day Active QUEtiapine Fumarate 75 mg 1 tablet Orall y twice a day Active Nystatin 238641 UNIT/ML 4 mL Mouth/Throa t Four times a day for 14 day(s) Active MiraLax 17 GM/SCOOP 1 scoop with 17 GM O rally daily at 4PM on a daily and regular basis, and then also QAM as needed for constipation in addition to the 4PM dose if needed for 30 days 04/01/2022 Active Linzess 145 MCG 1 capsule at least 3 0 minutes before the first meal of the day on an empty stomach Orally Once a day for 30 day(s) Active Trintellix 20 MG 1 tablet Orally Once a day Active Xalatan 0.005 % 1 drop into affected eye in the evening Ophthalmic Once a day Active Colace 100 MG 1 Orally Every eveni ng at bedtime for 30 day(s) 07/23/2022 Active Propranolol HCl 20 MG/5ML 5 mL Orally On ce a day for 30 day(s) Active Proscar 5 MG 1 tablet Orally Once a day Active Metamucil 48.57 % 1 Tablespoon Orally once or twice a day mixed in 8 ounces of water or OJ for constipation for 30 days 06/05/2022 Active OLANZapine 2.5 MG 1 tablet Orally Once a day for 30 day(s) Active Zolpidem Tartrate 5 MG 1 tablet under th e tongue and allow to dissolve at bedtime as needed Sublingual Once a day Active Naltrexone HCl 50 MG 1 tablet Orally Onc e a day for 30 day(s) Active ALPRAZolam 0.5 MG 1 tablet Orally Twic e a day Active hydrOXYzine HCl 25 MG 1 tablet as needed Orally Once a day for 30 day(s) Active Senna 8.6 MG TAKE 1 TABLET BY ASHLEY TH DAILY AT BEDTIME Active Nortriptyline HCl 75 MG as directed Orally Active Melatonin 5 MG Oral for 30 Act sade GNP Natural Fiber 0.52 GM Oral for 28 Active MiraLax - 17 Grams Orally QAM for 30 days 01/08/2020 Active Lisinopril Active Finasteride 5 MG Oral for 30 A ctive MiraLax - 17 Grams Orally Q PM PRN constipation for 30 days 01/08/2020 Active Centrum Silver - one tablet Orally on ce a day Active Lidocaine 5 % 1 patch to skin mina ve after 12 hours Externally prn 12H Active amLODIPine Benzoate 1 MG/ML 5 ml Orally Once a day Active Colace 100 MG 1 capsule as needed Orally Once a day Active MiraLax - 1 packet mixed with 8 ounces of fluid Orally Once a day Active Ondansetron HCl 4 MG 1 tablet Orally Onc e a day for 30 day(s) Active Hydrocortisone 1 % 1 application Supervisor Brine ally Once a day Active Ibuprofen 800 MG 1 tablet with food o r milk as needed Orally every 8 hrs Active Ondansetron 4 MG 1 tablet on the tong ue and allow to dissolve Orally Every 6 hours as needed for nausea for 30 day(s) 08/25/2024 Active Guaifenesin DM Cough & Chest Active Bisacodyl Laxative 10 MG 1 suppository a s needed Rectal Once a day for 30 day(s) Active Anusol-HC 2.5 % 1 application Supervisor Brine ally Twice a day Active Artificial Tear Solution - as directed Ophthalmic Active Magnesium Hydroxide 2400 MG/10ML 5 mL Orally Twice a day for 30 day(s) Active Tylenol 8 Hour 650 MG 1 tablet as needed Orally every 8 hrs Active traZODone HCl 150 MG 1 tablet at bedtime Orally hs Active Polyethylene Glycol 3350 17 GM 1 packet mixed with 8 ounces of fluid Orally Twice a day for 30 days 12/20/2023 Active Artificial Tears 1-0.3 % 1 drop into aff ected eye as needed Ophthalmic 24 time(s) a day Active Ventolin HFA 108 (90 Base) MCG/ACT 2 puffs as needed Inhalation every 6 hrs Active IMMUNIZATIONS Vaccine Route Administration Date Status [...] Problem Alcoholic liver disease (K70.9) Active confirmed 06958754 Problem Alcoholic cirrhosis of liver without ascites (K70.30) Active confirmed 442101665 Problem Gastroesophageal reflux disease without esophagitis (K21.9) Active confirmed 432507813 Problem History of adenomatous polyp of colon (Z86.010) Active confirmed 146651173 Problem Constipation, unspecified constipation type (K59.00) Active confirmed 27583679 Problem Encounter for screening for malignant neoplasm of colon (Z12.11) Active confirmed 513348262 Problem Acute gastroenteritis (K52.9) Active confirmed Acute gastroenteritis (69943603) VITAL SIGNS Blood pressure diastolic 00 mm Hg 08/25/2024 Height 74 in 08/25/2024 Blood pressure systolic 00 mm Hg 08/25/2024 Weight 230 lbs 08/25/2024 BMI 29.53 kg/m2 08/25/2024 Encounters Encounter Location Date Provider Diagnosis [facility] [address] [place] [phone] 08/25/2024 Corbin Swanson Acute gastroenteriti s K52.9 ; Alcoholic liver disease K70.9 ; Alcoholic cirrhosis of liver without ascites K70.30 and Constipation, unspecified constipation type K59.00 [facility] [address] [place] [phone] 01/07/2024 Corbin Swanson [facility] [address] [place] [phone] 03/02/2024 Corbin Swanson [facility] [address] [place] [phone] 06/24/2024 Corbin Swanson [facility] [address] [place] [phone] 07/27/2024 Corbin Swanson [facility] [address] [place] [phone] 08/23/2024 Corbin Swanson [facility] [address] [place] [phone] 09/06/2024 Corbin Swanson [facility] [address] [place] [phone] 10/18/2024 Corbin Swanson ASSESSMENTS Encounter Date Diagnosis Assessment Notes Treatment Notes Treatment Clinical Notes 08/25/2024 Alcoholic liver disease (ICD-10 - K70.9) 08/25/2024 Acute gastroenteriti s (ICD-10 - K52.9) Continue Zofran as needed We will get copies of the [facility] ER visit in 07/202408/25/2024 Alcoholic cirrhosis of liver without ascites (ICD-10 - K70.30) 08/25/2024 Constipation, unspecified constipation type (ICD-10 - K59.00) PLAN OF TREATMENT Pending Test Test Name Order Date LIVER PROFILE 10/04/2020 LIVER PROFILE 05/18/2018 AMMONIA 05/18/2018 CBC w DIFF 10/04/2020 CBC w DIFF 05/18/2018 PROTHROMBIN TIME (PT, INR) 02/25/2022 PROTHROMBIN TIME (PT, INR) 10/04/2020 PROTHROMBIN TIME (PT, INR) 05/18/2018 ALPHA-FETOPROTEIN,TUMOR MARKER 8 ALPHA-FETOPROTEIN,TUMOR MARKER 2 ALPHA-FETOPROTEIN,TUMOR MARKER 0 US ABD 02/25/2022 US ABD 10/04/2020 US abdomen complete 03/07/2022 Insurance Providers Payer Name Payer Address Payer Phone Subscriber Number Group Number Insured Name Patient Relationship to Insured Coverage Start Date Coverage End Date MEDICARE OF [place] [address] [place] [address] [id number] BEVERLY CABRERA Self - patient is the insured MEDICAID OF [facility] [address] [place] [phone] [id number] BEVERLY CABRERA Self - patient is the insured MEDICAL (GENERAL) HISTORY Medical History History ICD Code Urinary incontinence Hypertension Denies MA,DM,CVA,Lung disease,renal dise ase Alcohol-induced cirrhosis--n eg. CT of liver in 09/2019 at [facility]--no ascites, no masses---mild splenomgealy, positive varices Trouble walking due to trent ce issues in relation to his subdural hematomas and craniotomies Depression--at [facility] for 2 months 11/2021 to 01/2022; then to rehab until early February GERD/esophagitis--GI bleedin g admission at [facility]---upper endoscopy in 2006 revealed erosive esophagitis and esophageal ulcers while he was actively drinking; a followup endoscopy in 2008 revealed complete healing and no sign of Ac's esophagus Colonoscopies--2014 and 2016 at the [facility]--the 2014 exam was suboptimal due to poor bowel prep; the 2016 exam revealed a small tubular adenoma and small serrated adenoma EGD in 2016 at the [facility] was negative for varices nor significant esophagitis--gastric biopsies were negative for H. pylori Chronic constipation Ischemic colitis in 2021. He had a Flex sig with Dr. Steiner Surgical History Surgery Date(Month/Year) Craniotomy x2 for subdurals 2006 Cholecystectomy 2011 Hernia repair age 4 Umbilical hernia repair 01/12/2020
--- OUTSIDE RECORDS SUMMARY | 2024-12-29 11:10 | XMS_ITS ---
Author Organization [facility] Address [address] [place] [phone] Care Team Providers Care Principal Automation Engineer Name Role Phone Wilmer Enciso MD Primary Care Provider Unavail able Corbin Swanson Unavailable [phone] REASON FOR VISIT colonoscopy Encounters Encounter Location Date Provider Diagnosis [facility] [address] [place] [address] 09/06/2024 Corbin Swanson PLAN OF TREATMENT No Information
--- OUTSIDE RECORDS SUMMARY | 2024-12-29 11:10 | XMS_ITS | Clinical Summary ---
Author Organization [address] [facility] Address [address] [place] [address] Phone Care Team Providers Care Collection Systems Technician Name Role Phone Francie Keith NP Primary Care Provider [phone] Allergies Active Allergy Reactions Criticality Noted Date Comments Fentanyl 06/19/2023 Medications polyethylene glycol (PEG) 17 gram/dose oral powder Take 17 g by mouth 1 (one) time each day. Active dicyclomine (BENTYL) 10 mg capsule Take 1 Capsule by mouth 4 times daily (before meals and nightly). Active acetaminophen (TYLENOL 8 HOUR) 650 mg 8 hr tablet Take 1 tablet (650 mg total) by mouth every 8 (eight) hours if needed. Active ibuprofen (ADVIL,MOTRIN) 800 mg tablet Take 1 tablet (800 mg total) by mouth every 8 (eight) hours if needed. Active dextromethorph an-guaiFENesin (Tussin DM) 10-100 mg/5 mL syrup Take 10 mL by mouth every 4 (four) hours if needed. Active linaCLOtide (LINZESS) 145 mcg capsule Take 145 mcg by mouth every morning. Active sennosides 8.6 mg capsule Take 8.6 mg by mouth at bedtime. Active ondansetron (ZOFRAN) 4 mg tablet Take 1 tablet (4 mg total) by mouth every 8 (eight) hours if needed. Active amLODIPine (NORVASC) 5 mg tablet Take 1 tablet (5 mg total) by mouth 1 (one) time each day. Active propranoloL (INDERAL) 20 mg tablet Take 1 tablet (20 mg total) by mouth 3 (three) times a day. Active nystatin, bulk, 10 billion unit powder by Does not apply route. Active finasteride (PROSCAR) 5 mg tablet Take 1 tablet (5 mg total) by mouth 1 (one) time each day. Active docusate sodium (COLACE) 100 mg capsule Take 1 capsule (100 mg total) by mouth 2 (two) times a day. Active latanoprost (XALATAN) 0.005 % ophthalmic solution 1 drop at bedtime. Active chlorhexidine (HIBICLENS) 4 % external liquid Clean feet twice a day 3 Active mupirocin (BACTROBAN) 2 % ointment Apply topically to wound dialy 3 Active chlorhexidine gluconate (HIBICLENS TOP) Chlorhexidine Gluconate (Hibiclens) 4 % Solution-Sig - Route: Apply 1 Applicator topically daily. - Active lidocaine (LIDODERM) 5 % patchIndicatio ns:Alcoholic peripheral neuropathy (CMS/HCC) Apply 1 patch topically 1 (one) time each day. Remove & discard patch within 12 hours or as directed by MD. Apply to toes as night as needed for pain 30 each 2 5 03/08/20 25 Active Active Problems Problem Noted Date Diagnosed Date Idiopathic peripheral neuropathy 09/27/2024 BPH without obstruction/lower urinary tract symp toms 09/27/2024 HTN (hypertension) 09/27/2024 Hyperlipidemia 09/27/2024 Traumatic brain injury 09/27/2024 Alcoholic cirrhosis 09/27/2024 Thoracic spine pain 09/27/2024 Secondary parkinsonism 09/27/2024 Encounters Date Type Department Care Team Description 12/08/2024 9:45 AM EST Office Visit Orthopedic Surgery [facility] [address] [place] [phone] Jack Cuevas DPM Alcoholic peripheral neuropathy (CMS/HCC) (Primary Dx); Paralyzed hemidiaphragm; Acquired hammer toe of right foot; Primary osteoarthritis of both feet; Dermatophytosis of nail; Pain in toe of left foot; Pain in toe of right foot 10/03/2024 10:15 AM EST Office Visit Orthopedic Surgery [facility] [address] [phone] Jack Cuevas DPM Acquired hammer toe of right foot (Primary Dx); Paralyzed hemidiaphragm; Primary osteoarthritis of both feet; Pain in toe of left foot; Pain in toe of right foot; Dermatophytosis of nail from Last 3 Months Social History Tobacco Use Types Packs/Day Years Used Date Smoking Tobacco: Never Assessed Sex and Gender Information Value Date Recorded Sex Assigned at Not on file Legal Sex Male 8:22 PM EST Gender Identity Not on file Sexual Orientation Not on file Last Filed Vital Signs Vital Sign Reading Time Taken Comments Blood Pressure 124/70 04/07/2024 11:42 AM EDT L Arm Pulse 68 04/07/2024 11:42 AM EDT Temperature - - Respiratory Rate - - Oxygen Saturation - - Inhaled Oxygen Concentration - - Weight 104 kg (230 lb) 12/08/2024 9:37 AM EST Height 182.9 cm (6' 0.01 ) 12/08/2024 9:37 AM ES T Body Mass Index 31.19 12/08/2024 9:37 AM EST Plan of Treatment Upcoming Encounters Date Type Department Care Team (Late st Contact Info) Description 02/08/2025 9:30 AM EDT Office Visit Orthopedic Surgery [facility] [address] [phone] Jack Cuevas DPM [address] [phone] Health Maintenance Due Date Last Done Comments DTaP,Tdap,and Td Vaccines (1 - Tdap) 1974 Abdominal Aortic Aneurysm (AAA) Screen 12/10/2023 Cholesterol Screening (Lipid Panel) 12/10/2023 Colorectal Cancer Screening: Colonoscopy 12/10/2023 Depression Screening 12/10/2023 Falls Risk Assessment 12/10/2023 Hepatitis C Screening 12/10/2023 Medicare Annual Wellness Visit 12/10/2023 Social Influencers of Health Screening 12/10/2023 COVID-19 Vaccine ( season) 2024 10/29/2023, 08/23/2021, 12/24/2020, Additional history exists Hypertension/CHF/CAD Annual BMP Blood Test 09/28/2024 Hepatitis B Vaccines (2 of 3 - Hep B Twinrix 3-dose series) 10/06/2024 09/08/2024 Pneumococcal Vaccine: 50+ Years Completed 08/18/2022, 11/02/2019, 10/12/2017, Additional history exists RSV Immunization Patients 60+ Years Old Completed 10/29/2023 Hepatitis A Vaccines Aged Out 09/08/2024 No long er eligible based on patient's age to complete this topic Influenza Vaccine Completed 09/08/2024, , 08/18/2022, Additional history exists Zoster Vaccines Completed 09/08/2024, 11/02/2019 HIB Vaccines Aged Out No longer eligi ble based on patient's age to complete this topic HPV Vaccines Aged Out No longer eligi ble based on patient's age to complete this topic IPV Vaccines Aged Out No longer eligi ble based on patient's age to complete this topic MMR Vaccines Aged Out No longer eligi ble based on patient's age to complete this topic Meningococcal ACWY Vaccine Aged Out N o longer eligible based on patient's age to complete this topic Meningococcal B Vacine Aged Out No lo nger eligible based on patient's age to complete this topic RSV Immunization Patients Under 20 months Aged Out No longer eligible based on patient's age to complete this topic Varicella Vaccines Aged Out No longer eligible based on patient's age to complete this topic Insurance MEDICARE MEDICAID - [place] Care Teams Collection Systems Technician Relationship Specialty Start Date End Date Francie Keith NP [address] [place] [phone] PCP - General 05/27/23
--- OUTSIDE RECORDS SUMMARY | 2024-12-29 11:11 | XMS_ITS | Encounter Summary ---
Author Organization [facility] Address [address] [place] [phone] Care Team Providers Care Reed Worker Name Role Phone Francie Keith PROPERTY ECONOMIST Primary Care Provider Reason for Visit * Reason Comments Follow-up Overgrown toenails Encounter Details Date Type Department Care Team ([facility] st Contact Info) Description 12/08/2024 9:45 AM EST Office Visit Orthopedic Surgery [facility] [address] [phone] Jack Cuevas, DPM [address] [address] Alcoholic peripheral neuropathy (CMS/HCC) (Primary Dx); Paralyzed hemidiaphragm; Acquired hammer toe of right foot; Primary osteoarthritis of both feet; Dermatophytosis of nail; Pain in toe of left foot; Pain in toe of right foot Social History Tobacco Use Types Packs/Day Years Used Date Smoking Tobacco: Never Assessed Sex and Gender Information Value Date Recorded Sex Assigned at Not on file Legal Sex Male 8:22 PM EST Gender Identity Not on file Sexual Orientation Not on file documented as of this encounter Last Filed Vital Signs Vital Sign Reading Time Taken Comments Blood Pressure - - Pulse - - Temperature - - Respiratory Rate - - Oxygen Saturation - - Inhaled Oxygen Concentration - - Weight 104 kg (230 lb) 12/08/2024 9:37 AM EST Height 182.9 cm (6' 0.01 ) 12/08/2024 9:37 AM ES T Body Mass Index 31.19 12/08/2024 9:37 AM EST documented in this encounter Ordered Prescriptions Prescription Sig Dispense Quantity Refills Last Filled Start Date End Date lidocaine (LIDODERM) 5 % patchIndications:A lcoholic peripheral neuropathy (CMS/HCC) Apply 1 patch topically 1 (one) time each day. Remove & discard patch within 12 hours or as directed by MD. Apply to toes as night as needed for pain 30 each 2 12/08/2024 documented in this encounter Progress Notes * Jack Cuevas DPM - 12/08/2024 9:45 AM EST S Patient presents wheelchair-bound severe paralysis of bilateral extremities complaining of worsening pain in both feet states he is getting shooting numbing shared tingling sensation in his feet at night she is acute about 9 out of 10 on a visual analog scale s wonder if something can be done for it still suffers from Painful thickened nails and is relatively wheelchair-bound Last MD visit Dr. Stephan GAINES 07/27/24 ROS: GENERAL: Pt denies nausea, fever, vomiting, chills, or shortness of breath. Pt in NAD. CARDIOLOGY: pt denies chest pain, palpitations LUNGS: pt denies shortness of breath MUSCULOSKELETAL: See HPI, otherwise no joint pain or swelling, back pain, or muscle pain. SKIN: see HPI, otherwise no lesions, rash or itching NEURO: No persistent headache, weakness or numbness The remainder of the review of systems is noncontributory PAST MEDICAL HISTORY: There is no problem list on file for this patient. Alcohol cirrhosis Hemiplegia of left dominant side Not impressive hypertrophy Chronic idiopathic constipation Idiopathic peripheral neuropathy Radiculopathy of the lumbar sacral spine Essential hypertension Chest pain Secondary parkinsonism Alcohol cirrhosis History of traumatic brain injury Intermittent urinary incontinence SOCIAL HISTORY: Social History Tobacco Use Smoking status: Not on file Smokeless tobacco: Not on file Substance Use Topics Alcohol use: Not on file History Never marked as reviewed. ACTIVE MEDICATIONS: Current Outpatient Medications Medication Sig Dispense Refill Chlorhexidine Gluconate (Hibiclens) 4 % Solution Apply 1 Applicator topically daily. 100 mL 0 polyethylene glycol (GLYCOLAX) 17 GM/SCOOP powder Take 17 g by mouth daily. dicyclomine (BENTYL) 10 MG capsule Take 1 Capsule by mouth 4 times daily (before meals and nightly). acetaminophen (TYLENOL) 650 MG CR tablet Take 1 Tablet by mouth every 8 hours as needed. ibuprofen (ADVIL,MOTRIN) 800 MG tablet Take 1 Tablet by mouth every 8 hours as needed. dextromethorphan-guaifenesin (ROBITUSSIN-DM) 10-100 MG/5ML syrup Take 10 mL by mouth every 4 hours as needed. acetaminophen (TYLENOL) 650 MG CR tablet Take 1 Tablet by mouth every 8 hours as needed. ibuprofen (ADVIL,MOTRIN) 800 MG tablet Take 1 Tablet by mouth every 8 hours as needed. linaCLOtide 145 MCG Cap Take 145 mcg by mouth every morning. Sennosides (Senna) 8.6 MG Cap Take 8.6 mg by mouth at bedtime. ondansetron (ZOFRAN) 4 MG tablet Take 1 Tablet by mouth every 8 hours as needed. amlodipine (NORVASC) 5 MG tablet Take 1 Tablet by mouth daily. propranolol (INDERAL) 20 MG tablet Take 1 Tablet by mouth 3 times daily. Nystatin Powder by Does not apply route. finasteride (PROSCAR) 5 MG tablet Take 1 Tablet by mouth daily. docusate sodium (COLACE) 100 MG capsule Take 1 Capsule by mouth 2 times daily. latanoprost (XALATAN) 0.005 % ophthalmic solution 1 Drop at bedtime. chlorhexidine (HIBICLENS) 4 % external liquid Clean feet twice a day 120 mL 2 mupirocin (BACTROBAN) 2 % ointment Apply topically to wound dialy 22 g 0 No current facility-administered medications for this visit. ALLERGIES: Fentanyl PHYSICAL EXAM: Weight 230 lb (104.3 kg). Estimated body mass index is 31.19 kg/m?? as calculated from the following: Height as of 06/07/24: 6' (1.829 m). Weight as of this encounter: 230 lb (104.3 kg). PODIATRIC EXAMINATION: GENERAL: Patient appears well nourished, with NAD. VASCULAR: Dorsalis pedis pulses are 0-4 bilaterally and Posterior tibial pulses are 0/4 bilaterally. Capillary filling time within normal limits the digits. No pallor on elevation or rubor on dependency. Absent hair growth. No varicosities. Denies rest pain or claudication pain. NEUROLOGICAL: Sharp/dull sensation intact, protective sensation intact 0/10 with 5.07 semmes etelvina bilaterally, vibratory sensation with tuning fork intact to the tibial tuberosity. ORTHOPEDIC: Good muscle strength 1/5 of all flexors and extensors DERMATOLOGICAL:. Toenails: Left Toenail(s) 1-5: Crumbling upon debridement, subungual debris, discoloration, dystrophy, elongation, mycotic appearance, onychomycosis, pain and thickening. Right Toenail(s) 1-5: Crumbling upon debridement, subungual debris, discoloration, dystrophy, elongation, mycotic appearance, onychomycosis, pain and thickening. Annular scaling bilateral feet moccasin distribution Ulceration of both feet into the skin interspace of the third and fourth both feet with irritation of skin epithelial slough noted In the visit nails severely deformed ingrown BIOMECHANICS: STJ ROM wnl, MTJ ROM advanced crepitation bilateral, 1st MPJ ROM views right. Severe crepitation hammertoe contractures 2 through 5 bilateral Worsening hammertoe right fourth IMAGING: IMPRESSION: 1. Alcoholic peripheral neuropathy (CMS/HCC) lidocaine (LIDODERM) 5 % patch 2. Paralyzed hemidiaphragm 3. Acquired hammer toe of right foot 4. Primary osteoarthritis of both feet 5. Dermatophytosis of nail 6. Pain in toe of left foot 7. Pain in toe of right foot PLAN: Pt was seen and examined, history reviewed. Hibiclens prescribed continue with daily soaks and cleaning to help resolve ulcerations remove bioburden dermatophytosis of nails skin and microorganisms patient doing very well with his regiment hasresolving his ulcerations he has been doing very well at this time he notes that when he stops the skin surface of breakdown again Worsening hammertoe of the right fourth digit discussed and reviewed patient may benefit from open flexor tenotomy minor surgical procedure I would strongly recommend and uses lambswool interdigitally recommended and discussed with him today's appointment versus silicone toe sleeve patient continues to get worsening contractures causing preulcerative lesions which were addressed at today's appointment Worsening neuropathy neuritis discussed and reviewed Alcohol patches prescribed to use at night Patient follow-up in 1 month Debridement of mycotic toenails 6-10: Verbal informed consent was obtained from the patient. Greater than 6 nails were aseptically debrided in thickness and length with nail nippers documented in this encounter Plan of Treatment Upcoming Encounters Date Type Department Care Team (Late st Contact Info) Description 02/08/2025 9:30 AM EDT Office Visit Orthopedic Surgery - [place] [address] [phone] Jack Cuevas, DPM [address] [address] documented as of this encounter Visit Diagnoses Diagnosis Alcoholic peripheral neuropathy (CMS/HCC)- Primary Alcoholic polyneuropathy Paralyzed hemidiaphragm Acquired hammer toe of right foot Primary osteoarthritis of both feet Dermatophytosis of nail Pain in toe of left foot Pain in soft tissues of limb Pain in toe of right foot Pain in soft tissues of limb documented in this encounter Care Teams Reed Worker Relationship Specialty Start Date End Date Francie Keith NP [address] [place] [phone] PCP - General 05/27/23 documented as of this encounter
== END 2024-12-29 10:56 | disposition home or self-care (01) ==
PROVIDERS: PCP Physician Assistant Medical; Visit Provider Urology
DX: N45.1 Epididymitis (principal); N40.0 Benign prostatic hyperplasia without lower urinary tract symptoms
CPT/HCPCS: 99204

== ENCOUNTER → 2024-12-29 10:14 | Outpatient (BNVA) | payer MEDICARE, MEDICAID, SELFPAY | PROVIDERS: PCP Physician Assistant Medical; Visit Provider Urology | DX: N45.1 Epididymitis (principal); N40.0 Benign prostatic hyperplasia without lower urinary tract symptoms | CPT/HCPCS: 51798; 99202 ==

== ENCOUNTER 2025-01-06 14:39 | Outpatient (AMB) | payer MEDICARE, MEDICAID, SELFPAY ==
--- OUTSIDE RECORDS SUMMARY | 2025-01-06 14:57 | XMS_ITS | Patient Health Record ---
Author Organization [facility] Address [address] [place] [phone] Care Team Providers Care Shearer Screen Measurer And Trimmer Name Role Phone Wilmer Enciso MD Primary Care Provider Unavail able Corbin Swanson Unavailable [phone] ALLERGIES Allergen (clinical drug ingredient) Drug/Non Drug [...] Orall y twice a day Active Nystatin 892282 UNIT/ML 4 mL Mouth/Throa t Four times [...] Senna 8.6 MG TAKE 1 TABLET BY SAHLEY TH DAILY AT BEDTIME Active Nortriptyline HCl [...] day(s) Active Hydrocortisone 1 % 1 application Business Proposal Rep ally Once a day Active Ibuprofen 800 [...] day(s) Active Anusol-HC 2.5 % 1 application Business Proposal Rep ally Twice a day Active Artificial Tear [...] Problem Alcoholic liver disease (K70.9) Active confirmed 92949895 Problem Alcoholic cirrhosis of liver without ascites (K70.30) Active confirmed 033342102 Problem Gastroesophageal reflux disease without esophagitis (K21.9) Active confirmed 362962968 Problem History of adenomatous polyp of colon (Z86.010) Active confirmed 205423147 Problem Constipation, unspecified constipation type (K59.00) Active confirmed 36925012 Problem Encounter for screening for malignant neoplasm of colon (Z12.11) Active confirmed 553166080 Problem Acute gastroenteritis (K52.9) Active confirmed Acute gastroenteritis (59292145) VITAL SIGNS Blood pressure diastolic 00 mm Hg 08/25/2024 Height 74 in 08/25/2024 Blood pressure systolic 00 mm Hg 08/25/2024 Weight 230 lbs 08/25/2024 BMI 29.53 kg/m2 08/25/2024 Encounters Encounter Location Date Provider Diagnosis [facility] [address] [place] [phone] 08/25/2024 Corbin Swanson Acute gastroenteriti s K52.9 ; Alcoholic liver disease K70.9 ; Alcoholic cirrhosis of liver without ascites K70.30 and Constipation, unspecified constipation type K59.00 [facility] [address] [place] [phone] 01/07/2024 Corbin Swanson [facility] [address] [place] [phone] 03/02/2024 Corbin Swanson [facility] [address] [place] [phone] 06/24/2024 Corbin Swanson [facility] [address] [place] [phone] 07/27/2024 Corbin Swanson [facility] [address] [place] [phone] 08/23/2024 Corbin Swanson [facility] [address] [place] [phone] 09/06/2024 Corbin Swanson [facility] [address] [place] [phone] 10/18/2024 Corbin Swanson ASSESSMENTS Encounter Date Diagnosis Assessment Notes Treatment Notes Treatment Clinical Notes 08/25/2024 Alcoholic liver disease (ICD-10 - K70.9) 08/25/2024 Acute gastroenteriti s (ICD-10 - K52.9) Continue Zofran as needed We will get copies of the [facility] ER visit in 07/202408/25/2024 Alcoholic cirrhosis [...] OF [place] [address] [place] [address] [id number] BEVERLY CABRERA Self - patient is the insured MEDICAID OF [facility] [address] [place] [phone] [id number] BEVERLY CABRERA Self - patient is the insured MEDICAL (GENERAL) HISTORY Medical History History ICD Code Urinary incontinence Hypertension Denies AK,DM,CVA,Lung disease,renal dise ase Alcohol-induced cirrhosis--n eg. CT of liver in 09/2019 at [facility]--no ascites, no masses---mild splenomgealy, positive varices Trouble walking due to trent ce issues in relation to his subdural hematomas and craniotomies Depression--at [facility] for 2 months 11/2021 to 01/2022; then to rehab until early February GERD/esophagitis--GI bleedin g admission at [facility]---upper endoscopy in 2006 revealed erosive esophagitis and esophageal ulcers while he was actively drinking; a followup endoscopy in 2008 revealed complete healing and no sign of Ac's esophagus Colonoscopies--2014 and 2016 at the [facility]--the 2014 exam was suboptimal due to poor bowel prep; the 2016 exam revealed a small tubular adenoma and small serrated adenoma EGD in 2016 at the [facility] was negative for varices nor significant esophagitis--gastric biopsies were negative for H. pylori Chronic constipation Ischemic colitis in 2021. He had a Flex sig with Dr. Steiner Surgical History Surgery Date(Month/Year) Craniotomy x2 for subdurals 2006 Cholecystectomy 2011 Hernia repair age 4 Umbilical hernia repair 01/12/2020
--- OUTSIDE RECORDS SUMMARY | 2025-01-06 14:57 | XMS_ITS | Clinical Summary ---
Author Organization 175 [facility] Address [address] [place] [address] Phone Care Team Providers Care Appointment Clerk Name Role Phone Francie Keith NP Primary Care Provider [phone] Allergies Active Allergy Reactions Criticality Noted Date [...] 9:45 AM EST Office Visit Orthopedic Surgery - [address] [phone] Jack Cuevas, DPM Alcoholic peripheral neuropathy (CMS/HCC) (Primary Dx); Paralyzed hemidiaphragm; Acquired hammer toe of right foot; Primary osteoarthritis of both feet; Dermatophytosis of nail; Pain in toe of left foot; Pain in toe of right foot from Last 3 Months Social History Tobacco [...] AM EDT Office Visit Orthopedic Surgery - [place] [address] [phone] Jack Cuevas, DPM [address] [address] Health Maintenance Due Date Last Done Comments [...] Insurance MEDICARE MEDICAID - [place] Care Teams Appointment Clerk Relationship Specialty Start Date End Date Francie Keith NP [address] [place] [phone] PCP - General 05/27/23
--- OUTSIDE RECORDS SUMMARY | 2025-01-06 14:57 | XMS_ITS | Data Portability ---
Author Organization [facility] Address [address] [place] [address] Care Team Providers Care Emt Basic Name Role Phone WILLIAM FRANCOIS Primary Care Provider Assessment No assessment recorded. Plan of Treatment Reminders Order Date Submit Date Provider Last Modified By Organization Details Last Modified Time Details Appointments RECHEC K 15 2024 02:00P M Jo-Ann brenner PA-C Not available Not available Not available Lab None record ed. Referral None record ed. Procedures None record ed. Surgeries None record ed. Imaging XR, hip + pelvis , unilat eral, 2 or 3 view - rm 305 2v right hip 2024 025 jeanette [facility] [place] [facility], [address], [place], [address], 11/21/2024 14:23:48 Medication Orders None record ed. Patient TargetsNo targets recorded. Patient InstructionsNo instructions recorded. Reason for Referral None Reported. Procedures Surgical History Date Name Laterality Status Provider Name and Address Organization Details Recorded Time 11/21/2024 JZHip Inj completed Jo-Ann Wheat PA-C [address], [place], [address], [facility] 11/23/2024 10:15:58 Imaging Results None recorded. Procedure Notes None recorded. Medical Equipment None Reported. Allergies Allergen ID Allergen Name Allergen Category Reaction Reaction Severity Criticality Documentation Date Start Date Code Code System Note Provider Name and Address Organization Details Recorded Time 733744 fentanyl medicatio n Not available Not available Not available 11/21/2024 4337 RxNorm Yung sampson [employer] [facility] 01/06/202 5 14:20:15 Medications Name Sig Start Date Stop Date Status Note LastModified by Organization Details LastModified Time latanoprost 0.005 % eye drops active Not Available Not Available Not Available acetaminophen 325 mg tablet active Not Available Not Availabl e Not Available benztropine 0.5 mg tablet active Not Available Not Available No t Available divalproex 250 mg tablet,delayed release active Not Available Not Available Not Available polyethylene glycol 3350 17 gram oral powder packet active Not Available Not Available Not Available ibuprofen 800 mg tablet active Not Available Not Available Not Available senna 8.6 mg tablet active Not Available Not Available Not Available naltrexone 50 mg tablet active Not Available Not Available Not Available melatonin 3 mg tablet active Not Available Not Available Not Available amlodipine 5 mg tablet active Not Available Not Available Not Available olanzapine 2.5 mg tablet active Not Available Not Available No t Available doxycycline monohydrate 100 mg tablet active Not Available Not Available No t Available acetaminophen ER 650 mg tablet,extended release active Not Available Not Available Not Available alprazolam 0.5 mg tablet active Not Available Not Available No t Available alprazolam 0.25 mg tablet active Not Available Not Available No t Available trazodone 100 mg tablet active Not Available Not Available Not Available Debora-Hex 4 % topical liquid active Not Available Not Availab le Not Available nortriptyline 75 mg capsule active Not Available Not Available N ot Available docusate sodium 100 mg capsule active Not Available Not Availab le Not Available hydrocortisone 2.5 % topical cream active Not Available Not Available Not Available capsaicin 0.025 % topical cream active Not Available Not Availa ble Not Available mupirocin 2 % topical ointment active Not Available Not Avail able Not Available zolpidem 5 mg tablet active Not Available Not Available Not Available nystatin 100,000 unit/gram topical powder active Not Available Not Availab le Not Available propranolol 20 mg tablet active Not Available Not Available No t Available ondansetron 4 mg disintegrating tablet active Not Available Not Available Not Available clotrimazole 1 % topical cream active Not Available Not Availabl e Not Available finasteride 5 mg tablet active Not Available Not Available Not Available eszopiclone 2 mg tablet active Not Available Not Available Not Available Linzess 145 mcg capsule active Not Available Not Available Not Available Belsomra 5 mg tablet active Not Available Not Available Not Available Belsomra 10 mg tablet active Not Available Not Available Not Available Trintellix 20 mg tablet active Not Available Not Available Not Available Reguloid (psyllium husk-sucrose) 3 gram/7 gram oral powder active Not Available Not Available Not Available Vitals Date Recorded Body height Body mass index (BMI) Body weight Provider Name and Address Organization Details Last Updated DateTime 11/21/2024 182.88 cm 31.2 kg/m2 114041.25 g Yung Jimenez [employer] [facility] 11/21/2024 14:17:46 Social History None recorded. Functional Status None recorded. Mental Status None recorded. Family History Nothing Reported. Medical History No medical history recorded. Past Encounters Encounter ID Performer Location Encounter Start Date Encounter Closed Date Diagnosis/Indication Diagnosis SNOMED-CT Code Diagnosis ICD10 Code Diagnosis Note [id number] DANIELE [facility] [address] [address] 11/21/2024 14:07:22 12/01/2024 12:29:59 Hip pain 46795136 M25.551 Trochanter ic bursitis of right hip [id number] 26135 M70.61 Health Concerns Section Related Observation LastModified by Organization Detai ls LastModified Time None Recorded Concern Status LastModified by Organization Details LastModified Time None Recorded Advance Directives Directive None Recorded Payers Encounter Date Sequence Insurance Name Policy Number Policy Hernandez Covered Member ID Hernandez Member ID Guarantor Name 11/21/2024 2 [place] [facility] Samanta Barros [id number] Samanta Barros 11/21/2024 1 [place] B[place] [employer] Samanta Barros [id number] Samanta Barros Notes Date Note Type Note Provider Name and Address Organization Details Recorded Time 11/21/2024 text/html I am seeing the patient today under the supervision of Dr. Ricketts who was available but who did not see the patient.HPI: 69-year-old wheelchair-bound male presents for follow-up regarding his right hip. He had a remote history of a right hip femoral neck fracture fixed with percutaneous cannulated screws. Underwent subsequent hardware removal. Has had some ongoing issues with pain about the lateral aspect of his right hip. Had a cortisone injection done about a year ago which gave excellent relief of symptoms. Had another one done about 6 months ago by his PCP. Is requesting another injection today.Past family, medical, social history and review of systems have been reviewed and updated on the medical history sheet saved to the patient's chart. Review of systems is negative except as noted above and/or on the medical history sheet.Examination: The patient is well appearing and in no apparent distress. Alert and oriented x3. Exam with tenderness to palpation over the right greater trochanter. Right hip range of motion limited. He has limited use of the right leg and is wheelchair-bound. Peripheral vascular, lymphatic examination, skin, neurological, coordination, sensation are within normal limits unless otherwise noted above.X-rays ordered, obtained and reviewed at [facility] 2 views of right hip demonstrate healed right femoral neck fracture, mild degenerative changes about right hip joint.Impression: 69-year-old male with right hip trochanteric bursitisPlan: Discussed with the patient and treatment options reviewed. He would like to try another cortisone injection today for his right hip trochanteric bursitis. We discussed that this could be repeated once every 3 months as needed. Questions answered.[employer] speech recognition search optimization analyst software was used to create portions of this document. An attempt at proofreading has been made to minimize errors. Please call for corrections. Jo-Ann Wheat PA-C [address] [facility], [place], [address], [facility] 11/23/2024 10:16:36
--- OUTSIDE RECORDS SUMMARY | 2025-01-06 14:57 | XMS_ITS ---
Author Organization [facility] Address [address] [place] [address] Care Team Providers Care Wood Veneer Taper Name Role Phone Wilmer Enciso MD Primary Care Provider Unavail able Corbin Swanson Unavailable [phone] REASON FOR VISIT Would like to schedule a colon Encounters Encounter Location Date Provider Diagnosis [facility] [address] [place] [address] 10/18/2024 Corbin Swanson PLAN OF TREATMENT No Information
--- OUTSIDE RECORDS SUMMARY | 2025-01-06 14:57 | XMS_ITS | Encounter Summary ---
Author Organization [facility] Address [id number] [place] [phone] Care Team Providers Care Select Banker Name Role Phone Francie Keith DIE MAKER BENCH STAMPING Primary Care Provider [phone] Reason for Visit * Reason Comments Follow-up Overgrown toenails Encounter Details Date Type Department Care Team ([facility] st Contact Info) Description 12/08/2024 9:45 AM EST Office Visit Orthopedic Surgery [facility] [address] [phone] Jack Cuevas, DPM [address] [address] Alcoholic peripheral neuropathy (CMS/HCC) (Primary Dx); Paralyzed [...] AM EDT Office Visit Orthopedic Surgery - [place] [address] [phone] Jack Cuevas, DPM [address] [address] documented as of this encounter Visit Diagnoses Diagnosis Alcoholic peripheral neuropathy (CMS/HCC)- Primary Alcoholic polyneuropathy Paralyzed hemidiaphragm Acquired hammer toe of right foot Primary osteoarthritis of both feet Dermatophytosis of nail Pain in toe of left foot Pain in soft tissues of limb Pain in toe of right foot Pain in soft tissues of limb documented in this encounter Care Teams Select Banker Relationship Specialty Start Date End Date Francie Keith NP [address] [place] [phone] PCP - General 05/27/23 documented as of this encounter
--- OUTSIDE RECORDS SUMMARY | 2025-01-06 14:57 | XMS_ITS ---
Author Organization [facility] Address [address] [place] [phone] Care Team Providers Care Rfid Analyst Name Role Phone Wilmer Enciso MD Primary Care Provider Unavail able Corbin Swanson Unavailable [phone] REASON FOR VISIT colonoscopy Encounters Encounter Location Date Provider Diagnosis [facility] [address] [place] [address] 09/06/2024 Corbin Swanson PLAN OF TREATMENT No Information
--- OUTSIDE RECORDS SUMMARY | 2025-01-06 14:57 | XMS_ITS ---
Author Organization [facility] Address [address] [place] [phone] Care Team Providers Care Perinatal Educator Name Role Phone Wilmer Enciso MD Primary Care Provider Unavail able Corbin Swanson Unavailable [phone] ALLERGIES Allergen (clinical drug ingredient) Drug/Non Drug [...] day(s) Active Hydrocortisone 1 % 1 application Drier And Pulverizer Tender ally Once a day Active Ibuprofen 800 [...] day(s) Active Anusol-HC 2.5 % 1 application Drier And Pulverizer Tender ally Twice a day Active Artificial Tear Solution - as directed Ophthalmic Active Magnesium Hydroxide 2400 MG/10ML 5 mL Orally Twice a day for 30 day(s) Active Nystatin 909388 UNIT/ML 4 mL Mouth/Throa t Four times [...] Acute gastroenteritis (K52.9) Active confirmed Acute gastroenteritis (74421960) VITAL SIGNS BMI 29.53 kg/m2 08/25/2024 Blood pressure systolic 00 mm Hg 08/25/20 24 Blood pressure diastolic 00 mm Hg 024 Height 74 in 08/25/2024 Weight 230 lbs 08/25/2024 Encounters Encounter Location Date Provider Diagnosis [facility] [address] [place] [phone] 08/25/2024 Corbin Swanson Acute gastroenteriti s K52.9 ; Alcoholic liver disease K70.9 ; Alcoholic cirrhosis of liver without ascites K70.30 and Constipation, unspecified constipation type K59.00 ASSESSMENTS Encounter Date Diagnosis Assessment Notes Treatment Notes Treatment Clinical Notes 08/25/2024 Acute gastroenteriti s (ICD-10 - K52.9) Continue Zofran as needed We will get copies of the [facility] visit in 07/202408/25/2024 Alcoholic liver disease [...] needed We will get copies of the [facility] ER visit in 07/2024 Next Appt Details [...]
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
== END 2025-01-06 16:54 | disposition home or self-care (01) ==
LOC: HO.HOP 14:39
PROVIDERS: PCP Physician Assistant Medical; Visit Provider Psychiatry & Neurology Psychiatry
DX: F33.9 Major depressive disorder, recurrent, unspecified (principal); G31.89 Other specified degenerative diseases of nervous system; F09 Unspecified mental disorder due to known physiological condition; S06.9X9S Unspecified intracranial injury with loss of consciousness of unspecified duration, sequela
CPT/HCPCS: 90833; 99213

== ENCOUNTER → 2025-01-06 14:39 | Outpatient (BNVA) | payer MEDICARE, MEDICAID, SELFPAY | PROVIDERS: PCP Physician Assistant Medical; Visit Provider Psychiatry & Neurology Psychiatry | DX: F33.9 Major depressive disorder, recurrent, unspecified (principal); F09 Unspecified mental disorder due to known physiological condition; G31.89 Other specified degenerative diseases of nervous system; S06.9X9D Unspecified intracranial injury with loss of consciousness of unspecified duration, subsequent encounter | CPT/HCPCS: 99212 ==

== ENCOUNTER 2025-02-02 10:38 | Outpatient (AMB) | payer MEDICARE, MEDICAID, SELFPAY ==
--- NOTE | 2025-02-02 10:42 | A.OFFVIS_ITS ---
Vital Signs 02/02/25 10:43 Height 6 ft 2 in Weight 230 lb BMI 29.5 BP 160/80 H Blood Pressure Location Lt brachial Position Sitting Pulse 61 Pulse Oximetry (%) 96 Oxygen Delivery Method Room Air Intake Visit Reasons: colitis, chronic constipation, dysphagia(2nd op) Intake Note: Patient new consult for Colitis, dysphagia and chronic constipation. Last hospital visit seen by you on 09/18/2022. Patient denies any GI issues. Spiral Tube Winder Helper Required: No Accompanied by: Self / Same As Patient Allergies fentanyl [FENTANYL] Allergy (Intermediate, Verified 02/02/25 10:50) unknown Medication List - Last Reconciled 02/02/25 by Jimenez Steiner MD acetaminophen 650 mg (2 x 325 mg) PO Q6H PRN alprazolam 0.25 mg PO BID PRN amlodipine 5 mg See Protocol PO DAILY 30 days benztropine 0.5 mg PO TID bisacodyl (Gentle Laxative (bisacodyl)) 10 mg FL DAILY PRN 30 days capsaicin 0.025% 1 appl topical BEDTIME clotrimazole 1% 1 appl See Protocol topical BEDTIME dextran 70-hypromellose (Artificial Tears (PF) drops in a dropperette) 1 drp ophthalmic (eye) Q2H PRN dextromethorphan-guaifenesin 10-100 mg/5 mL 5 mL PO Q4H PRN 30 days divalproex 750 mg (3 x 250 mg) PO BEDTIME docusate sodium 100 mg PO DAILY finasteride 1 tab PO DAILY 30 days hydrocortisone 1% 1 appl topical BID PRN hydrocortisone 2.5% ea FL hydroxyzine HCl 25 mg PO QID PRN ibuprofen 600 mg PO Q6H PRN lemborexant (Dayvigo) 5 mg PO BEDTIME 30 days lidocaine 4% ea topical linaclotide (Linzess) 145 mcg PO DAILY magnesium hydroxide (Milk of Magnesia) 30 mL PO BID PRN 30 days multivitamin 1 tab PO DAILY 30 days naltrexone 50 mg PO DAILY nortriptyline 75 mg PO BEDTIME 30 days nystatin 1 appl See Protocol topical BEDTIME 30 days ondansetron HCl 4 mg PO Q6H PRN polyethylene glycol 3350 17 grams PO DAILY PRN 30 days propranolol 20 mg See Protocol PO TID 30 days sennosides (Senna Lax) 17.2 mg PO BEDTIME PRN trazodone 200 mg (2 x 100 mg) PO BEDTIME vortioxetine (Trintellix) 20 mg PO DAILY 30 days HPI HPI colitis, chronic constipation, dysphagia(2nd op): Details: GI clinic visit for this 69 YM referred by MICHELE Lala for a 2nd opinion on dysphagia, colitis and constipation TODAY'S VISIT: Pt complains of diarrhea alternating with constipation Turned 69 last fall and has been having GI problems since age 14 yrs. Constipated most of the days - 5 out of 7 days On a regular bowel program with intermittent results sometimes it works wonderfully and sometimes it does not Can have episodes of forceful diarrhea Bowel program consists of: Miralax twice daily Fibre gummies 5 grams - 2 gummies in the evening Colace 100 mg every morning Linzess 145 mcg in the evening Senna 8.6 mg twice a day Also on prn MOM 30 ml twice a day, Senna 8.6 mg once a day and bisacodyl supp 10 mg at bedtime Pt denies smoking and states no ETOH for the past year States dysphagia is not a major problem at present. I am on a plethora of GI medications Is on a regular diet Had an episode of choking during hospitalization and placed on a chopped diet. Does not eat as much and has lost some weight Occasional nausea and vomiting Denies recent black stools or rectal bleeding (occasional bleeding from hemorrhoid). Patient has COPD and denies major cardiac or problems, loud snoring or sleep apnea Had a major brain bleed in May 2007 and treated at [facility] Had his left hip replaced and denies problems with anesthesia in the past. Denies being on chronic anticoagulation. Patient denies known family history of colon polyps, colon cancer or other GI malignancies. No one left in the family - brothers and parents have Ex- and 30 year old son live in [place] Pt lives in a alf in [place]. [facility] Reviewed IMAGING STUDIES: 07/17/[address] (at [facility]) showed liver cirrhosis without a liver mass or ascites ENDOSCOPIC STUDIES: Last colon 4-[address] Swanson - and per pt polyps were removed. EGD in [address] Swanson showed erosive esophagitis, hiatal hernia and gastritis. He was treated with pantoprazole 40 mg twice daily and follow-up EGD showed esophagitis had healed. 09/2022 FLEXIBLE SIGMOIDOSCOPY SHOWED: Edema, erythema, ulcerations with submucosal hemorrhages from 30 to 50 cms suggestive of ischemic colitis - biopsies were obtained No active bleeding noted during examination Moderate diverticulosis seen in the left colon Moderate hemorrhoids on retroflexed exam. Plan: Continue IV antibiotics. Start a clear liquid diet today and advance diet as tolerated. Patient to FU in the GI clinic with Dr Swanson (his primary dry end tester) to discuss outpatient evaluation with an EGD and Colonoscopy. Biopsies showed ischemic colitis. PAST GI HISTORY BY REVIEW OF MEDICAL RECORDS: 09/2022 PATIENT WAS SEEN DURING HOSPITALIZATION AT [facility] Reason for consult: bloody stool- likely hemorrhoid? 67 YM with history of ETOH abuse, anxiety, cognitive and neurobehavioral dysfunction following brain injury, depression, HTN, seizure disorder, history of subdural hematoma, TIA, TBI, seen at [facility] ED on 09/17/22 with abdominal pain, ?? Constipation with bladder and bowel incontinence.? Patient is a vague and a poor historian and stated that he has to strain very hard in order to relieve himself to move his bowels, reports lower abdominal pain, nonradiating, the pain is 8/10, constant for the past month, has difficulty moving his bowels, Pt reported urinary incontinence no urinary urgency dysuria or frequency.? Patient reports that sometimes his stools also watery.? He denies any fever, no chills.? He does complain of bright red blood per rectum. He denies having any shortness of breath although on my exam patient is having significant audible wheezing, denies any orthopnea or PND, no lower extremity edema.? Denies any chest pain.? Patient reports that he drinks a significant amount of wine and liquor 4 to 5 times a week.? He reports that he is feeling like is withdrawing right now. E[place] [address] Swanson showed erosive esophagitis, hiatal hernia and gastritis. He was treated with pantoprazole 40 mg twice daily and follow-up EGD showed esophagitis had healed. 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 Per report obtained from ED patient was found by AMS covered in feces.? Noted to have bright blood in feces after having multiple episodes of diarrhea in the ED. On arrival to the ED patient hemodynamically stable no significant abnormal vitals Labs are significant for WBC count of 13.1, hemoglobin of 13, hematocrit 39, potassium of 5.5, creatinine of 2.2 with a baseline of around 1.27, urine positive for leukocyte Estrace and WBC COVID-19 negative, stool occult positive for blood 09/17/[address] SCAN SHOWED: 1.? Findings compatible with colitis involving the distal sigmoid colon. No pneumatosis to suggest specific evidence of ischemic bowel although this possibility cannot be definitively excluded. No evidence of sigmoid diverticulosis to suggest this represents diverticulitis. 2.? No additional acute intra-abdominal process. 3.? Cirrhotic liver morphology. 4.? Multiple chronic appearing lower thoracic and lumbar compression fractures. 5.? Additional ancillary findings, as described. 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 Cataracts, bilateral Glaucoma Major depression, recurrent, chronic Sinusitis Aggressive behavior Alcohol use disorder, moderate, dependence TBI (traumatic brain injury) Anxiety TIA (transient ischemic attack) Hypertension Alcohol abuse Subdural hematoma Seizure disorder Depression 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, recurrent severe without psychotic features Major depressive disorder, recurrent HTN (hypertension) Hernia Surgical History History of cholecystectomy H/O craniotomy H/O umbilical hernia repair History of hip replacement S/P cholecystectomy H/O brain surgery Family History Other Family history unobtainable Social History Household Members: None Household Members Other:: resides in alf Housing: Care Home Housing Other:: resides in alf Are you a primary property caretaker to a significant other at home: No Do you presently have visiting nurse or other home services: Yes (alf staff) Alcohol intake: never Comment: wears shoes Patient Tobacco Use Status: Never used Tobacco e-Cigarette/Vaping Use: Never Used Second Hand Smoke Exposure: No Advance Directives Date on File: 05/27/19 service: No Current occupational status: disabled Sexual orientation: Straight/Heterosexual Review of Systems Const All systems reviewed & are unremarkable except as noted in HPI and below Physical Exam Vital Signs: BMI result Body Mass Index 29.5 Const General: no acute distress Nutritional Appearance: overweight Orientation/consciousness: patient oriented x3 Limitations: wheelchair HEENT Head: Yes normal to inspection Ears: hearing grossly normal bilaterally Eyes Sclerae: sclerae normal Pupils: Equal, round and reactive pupils present Neck Neck: Yes normal visual inspection Chest Chest palpation & inspection: normal inspection of the chest Resp Effort & Inspection: normal respiratory effort Auscultation: clear to auscultation bilaterally Cardio Palpation: normal PMI Rate: regular rate Rhythm: regular rhythm Heart sounds: S1 normal heart sound present, S2 normal heart sound present and no murmurs GI Palpation (GI): Soft to palpation, nontender and No hepatosplenomegaly present Auscultation: normal bowel sounds Rectal Exam - Male: Yes deferred Skin General skin exam: no rashes or lesions noted Neuro General: patient oriented x3, gait normal and moves all extremities Cranial nerves: Yes Equal, round and reactive pupils present Psych Appearance: grossly normal Mental Status: mental status grossly normal Assessment & Plan Assessment & Plan (1) Chronic constipation: Code(s): K59.09 - Other constipation Category: Medical Plan 67 YM with history of ETOH abuse, anxiety, cognitive and neurobehavioral dysfunction following brain injury, depression, HTN, seizure disorder, history of subdural hematoma, TIA, TBI, seen during hospitalization at [facility] in Sep, 2022 for abdominal pain, ?? Constipation with bladder and bowel incontinence.? Flexible sigmoidoscopy showed Edema, erythema, ulcerations with submucosal hemorrhages from 30 to 50 cms Biopsies confirmed a diagnosis of ischemic colitis 02/02/25 Pt seen for constipation with intermittent diarrhea (likely paradoxical diarrhea related to constipation) He was advised to increase linaclotide to 290 mcg (from 145 mcg) every morning and continue with the current bowel program. He will be scheduled for a colonoscopy once constipation improves - request sent to the GI general manager in training. Present Bowel program consists of: Miralax twice daily Fibre gummies 5 grams - 2 gummies in the evening Colace 100 mg every morning Linzess 145 mcg in the evening Senna 8.6 mg twice a day Also on prn MOM 30 ml twice a day, Senna 8.6 mg once a day and bisacodyl supp 10 mg at bedtime FU in 8 weeks Medications: New linaclotide (Linzess) 290 mcg PO QAM 30 days 30 caps 3RF Coding Level of Care Code Est Pt Level 4 (24381) Diagnoses Chronic constipation K59.09 Time Spent (min) 24
[2025-02-02 10:43] VITALS: BP 160/80; PULSE 61; O2SAT 96; BMI 29.5
--- OUTSIDE RECORDS SUMMARY | 2025-02-02 12:24 | XMS_ITS | Clinical Summary ---
Author Organization [address] [facility] Address [address] [place] [address] Phone Care Team Providers Care Patient Services Assistant Name Role Phone Francie Keith NP Primary Care Provider Allergies Active Allergy Reactions Criticality Noted Date [...] AM EST Office Visit Orthopedic Surgery - [address] [phone] Jack Cuevas, DPM Alcoholic peripheral [...] AM EDT Office Visit Orthopedic Surgery - [place] [address] [phone] Jack Cuevas, DPM [address] [address] Health Maintenance Due Date Last Done Comments [...] Insurance MEDICARE MEDICAID - [place] Care Teams Patient Services Assistant Relationship Specialty Start Date End Date Francie Keith NP [address] [place] [phone] PCP - General 05/27/23
--- OUTSIDE RECORDS SUMMARY | 2025-02-02 12:25 | XMS_ITS ---
Author Organization [facility] Address [address] [place] [address] Care Team Providers Care Display Artist Name Role Phone Wilmer Enciso MD Primary Care Provider Unavail Corbin Shore Unavailable [phone] REASON FOR VISIT colonoscopy Encounters Encounter Location Date Provider Diagnosis [facility] [address] [place] [address] 09/06/2024 Corbin Swanson Plan Of Treatment No Information Progress Notes * BEVERLY CABRERA VDOB:[birth year] (69 yo M)Acc No.[id number]:09/06/2024 Patient:?BEVERLY CABRERA Laz :1955???Age:69 Y???Sex:Male Address:[address] [place] [address] * true * Date:? Generated for Brendai rosa maria/Jan/eTransmitting on:?02/02/2025 12:24 PM EDT
--- OUTSIDE RECORDS SUMMARY | 2025-02-02 12:25 | XMS_ITS ---
Author Organization [facility] Address [address] [place] [address] Care Team Providers Care Felt Hat Pouncing Operator Hand Name Role Phone Wilmer Enciso MD Primary Care Provider Unavail Corbin Shore Unavailable [phone] REASON FOR VISIT Would like to schedule a colon Encounters Encounter Location Date Provider Diagnosis [facility] [address] [place] [address] 10/18/2024 Corbin Swanson Plan Of Treatment No Information Progress Notes * BEVERLY CABRERA VDOB:[birth year] (69 yo M)Acc No.[id number]:10/18/2024 Patient:?RICK BEVERLY aLz :1955???Age:69 Y???Sex:Male Address:[address] [place] [address] * true * Date:? Generated for Carlitos crane/Jan/eTransmitting on:?02/02/2025 12:25 PM EDT
== END 2025-02-02 12:00 | disposition home or self-care (01) ==
LOC: HO.HGI 10:39
PROVIDERS: PCP Physician Assistant Medical; Visit Provider Internal Medicine Gastroenterology
DX: K59.09 Other constipation (principal)
CPT/HCPCS: 99214

== ENCOUNTER → 2025-02-02 10:38 | Outpatient (BNVA) | payer MEDICARE, MEDICAID, SELFPAY | PROVIDERS: PCP Physician Assistant Medical; Visit Provider Internal Medicine Gastroenterology | DX: K59.09 Other constipation (principal); R13.10 Dysphagia, unspecified; R32 Unspecified urinary incontinence; R15.9 Full incontinence of feces; I10 Essential (primary) hypertension | CPT/HCPCS: 99212 ==

== ENCOUNTER 2025-02-07 10:30 | Outpatient (AMB) | payer MEDICARE, MEDICAID, SELFPAY ==
[2025-02-07 10:33] VITALS: PULSE 62; O2SAT 97
--- NOTE | 2025-02-07 10:33 | MHC.OFFVIS ---
Vital Signs 02/07/25 10:33 Height 6 ft 2 in Pulse 62 Pulse Source Pulse Oximeter Pulse Oximetry (%) 97 Oxygen Delivery Method Room Air Intake Visit Reasons: SOB, Chronic Cough Appliance Service Technician Required: No Recreational Director: Recreational Director offered & declined Accompanied by: patient access representative Allergies fentanyl [FENTANYL] Allergy (Intermediate, Verified 02/07/25 10:38) unknown Medication List - Last Reconciled 02/07/25 by Nakia Villalta, FESTUS acetaminophen 650 mg (2 x 325 mg) PO Q6H PRN alprazolam 0.25 mg PO BID PRN amlodipine 5 mg See Protocol PO DAILY 30 days benztropine 0.5 mg PO TID bisacodyl (Gentle Laxative (bisacodyl)) 10 mg MI DAILY PRN 30 days capsaicin 0.025% 1 appl topical BEDTIME clotrimazole 1% 1 appl See Protocol topical BEDTIME dextran 70-hypromellose (Artificial Tears (PF) drops in a dropperette) 1 drp ophthalmic (eye) Q2H PRN dextromethorphan-guaifenesin 10-100 mg/5 mL 5 mL PO Q4H PRN 30 days divalproex 750 mg (3 x 250 mg) PO BEDTIME docusate sodium 100 mg PO DAILY finasteride 1 tab PO DAILY 30 days hydrocortisone 1% 1 appl topical BID PRN hydrocortisone 2.5% ea MI hydroxyzine HCl 25 mg PO QID PRN ibuprofen 600 mg PO Q6H PRN lemborexant (Dayvigo) 5 mg PO BEDTIME 30 days lidocaine 4% ea topical linaclotide (Linzess) 290 mcg PO QAM 30 days magnesium hydroxide (Milk of Magnesia) 30 mL PO BID PRN 30 days multivitamin 1 tab PO DAILY 30 days naltrexone 50 mg PO DAILY nortriptyline 75 mg PO BEDTIME 30 days nystatin 1 appl See Protocol topical BEDTIME 30 days ondansetron HCl 4 mg PO Q6H PRN polyethylene glycol 3350 17 grams PO DAILY PRN 30 days propranolol 20 mg See Protocol PO TID 30 days sennosides (Senna Lax) 17.2 mg PO BEDTIME PRN trazodone 200 mg (2 x 100 mg) PO BEDTIME vortioxetine (Trintellix) 20 mg PO DAILY 30 days HPI HPI SOB, Chronic Cough: Details: Samanta is a pleasant 69 year male, never smoker, with underlying TBI with cognitive and neurobehavioral dysfunction, seizure disorder, TIA, subdural hematoma, depression, hypertension, anxiety, alcohol use disorder. He was referred by PCP for pulmonary evaluation for chronic cough. He is wheelchair bound and resides at a correction, accompanied by staff member. He reports productive cough since Thanksgi with associated chest congestion, and dyspnea with minimal exertion. He denies fevers or chills. He denies prior h/o asthma. He does report dysphagia, prior MBSS 2022 revealed laryngeal penetration on several occasions but no laryngeal aspiration as well as mild retention of solid food which cleared with subsequent oral administration of water or thin barium. Speech therapist recommended chopped diet, pills in puree as well as no straws however patient states he has been following a regular diet since MBSS. He denies any recent abx for respiratory symptoms, however was recently on doxycycline for urologic issue with no change in symptoms. Denies recent chest images. He was last admitted for aspiration pneumonia in 2022. [facility] Medical History (Updated 02/12/25 @ 20:32 by Lindsay Epperson NP) Inflammatory disorders of scrotum Chronic obstructive pulmonary disease, unspecified Secondary parkinsonism, unspecified Hypothyroidism, unspecified Thrombocytopenia, unspecified Acute insomnia Intermittent urinary incontinence BPH (benign prostatic hyperplasia) Resides in retirement care facility Cataracts, bilateral Glaucoma Major depression, recurrent, chronic Sinusitis Aggressive behavior Alcohol use disorder, moderate, dependence TBI (traumatic brain injury) Anxiety TIA (transient ischemic attack) Hypertension Alcohol abuse Subdural hematoma Seizure disorder Depression 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, recurrent severe without psychotic features Major depressive disorder, recurrent HTN (hypertension) Hernia Surgical History History of cholecystectomy H/O craniotomy H/O umbilical hernia repair History of hip replacement S/P cholecystectomy H/O brain surgery Family History Other Family history unobtainable Social History Household Members: None Household Members Other:: resides in correction Housing: [facility] Housing Other:: resides in correction Are you a primary resident care manager rn to a significant other at home: No Do you presently have visiting nurse or other home services: Yes (correction staff) Alcohol intake: never Comment: wears shoes Patient Tobacco Use Status: Never used Tobacco e-Cigarette/Vaping Use: Never Used Second Hand Smoke Exposure: No Advance Directives Date on File: 05/27/19 service: No Current occupational status: disabled Sexual orientation: Straight/Heterosexual Review of Systems Const Denies chills, Denies excessive sweating, Denies fever(s), Denies headache(s) and Denies night sweats Eyes Denies dry eyes, Denies irritation and Denies itchy eyes ENT Reports Normal hearing present, Denies headache(s), Denies nasal congestion, Denies nasal discharge, Denies post nasal drip and Denies sore throat Card Denies chest pain, Denies chest pain at rest, Denies chest pain with activity, Denies claudication, Denies leg edema, Denies orthopnea and Denies paroxysmal nocturnal dyspnea Resp Denies pain on inspiration, Denies pain with cough, Denies stridor and Denies wheezing Musc Denies myalgias Neuro Reports Normal hearing present and Denies headache(s) Endo Denies excessive sweating Stalin/Lymph Denies lymphadenopathy Aller/Immun Denies itchy eyes, Denies seasonal rhinorrhea and Denies wheezing Physical Exam Vital Signs: Last Vital Signs Pulse 62 02/07/25 10:33 Pulse Ox 97 02/07/25 10:33 Oxygen Delivery Method Room Air 02/07/25 10:33 Const General: no acute distress Nutritional Appearance: overweight Orientation/consciousness: patient oriented x3 Limitations: wheelchair HEENT Head: Yes normal to inspection Ears: hearing grossly normal bilaterally Eyes Sclerae: sclerae normal Neck Neck: Yes normal visual inspection Lymphatic: no lymphadenopathy noted Chest Chest palpation & inspection: normal inspection of the chest Resp Effort & Inspection: normal respiratory effort, able to speak in complete sentences, no audible wheezes, Actively coughing Quality: wet, no stridor, not tachypneic, no tripod positioning and no use of accessory muscles Auscultation: rhonchi Cardio Jugular venous distension: no JVD Rate: regular rate Rhythm: regular rhythm Skin Other: warm, dry General skin exam: no rashes or lesions noted Neuro General: patient oriented x3, gait normal and moves all extremities Cranial nerves: Yes Normal hearing present Cognition (Neuro): normal cognition Extrem General: Yes normal to inspection, Yes capillary refill normal, Yes no clubbing, cyanosis or edema and Yes no pedal edema Psych Appearance: grossly normal Mental Status: mental status grossly normal Speech and movement: Normal speech and movement present and Slowed speech present (Psych) Attitude: cooperative Thought process: Normal thought process present Thought content: Normal thought content present Insight: Good insight present (Psych) Judgement: Good judgement present (Psych) Assessment & Plan Assessment & Plan (1) Cough: Code(s): R05.9 - Cough, unspecified Category: Medical (2) Dysphagia: Code(s): R13.10 - Dysphagia, unspecified Category: Medical (3) History of traumatic brain injury: Code(s): Z87.820 - Personal history of traumatic brain injury Category: Medical Plan Samanta's symptoms are likely related to aspiration secondary to dysphagia. Will treat bronchitic symptoms with Augmentin and send for CXR today. He is aware to call if symptoms do not improve or seek emergent care if symptoms worsen. Will consider repeat MBSS, prior 2022. Discussed importance of following previously recommended diet changes to avoid recurrent aspiration. All questions were answered and patient is in agreement of plan. Will follow up in 4-6 weeks or sooner if needed. Orders: Orders XR chest 2V 02/08/25 R05.9 - Cough, unspecified Medications: New amoxicillin-pot clavulanate 875-125 mg 1 tab PO Q12H 20 tabs 0RF Coding Level of Care Code New Pt Level 4 (24327) Diagnoses Cough R05.9 Dysphagia R13.10 History of traumatic brain injury Z87.820
== END 2025-02-07 11:13 | disposition home or self-care (01) ==
LOC: HO.HPSW 10:30
PROVIDERS: PCP Physician Assistant Medical; Referring Provider Physician Assistant Medical; Visit Provider Nurse Practitioner Family
DX: R05.9 Cough, unspecified (principal); R13.10 Dysphagia, unspecified; Z87.820 Personal history of traumatic brain injury
CPT/HCPCS: 99204

== ENCOUNTER → 2025-02-07 10:30 | Outpatient (BNVA) | payer MEDICARE, MEDICAID, SELFPAY | PROVIDERS: PCP Physician Assistant Medical; Referring Provider Physician Assistant Medical; Visit Provider Nurse Practitioner Family | DX: R05.9 Cough, unspecified (principal); R13.10 Dysphagia, unspecified; Z87.820 Personal history of traumatic brain injury | CPT/HCPCS: 99202 ==

== ENCOUNTER 2025-02-08 11:00 | Outpatient (REF) | payer MEDICARE, MEDICAID, SELFPAY ==
--- NOTE | ~2025-02-08 | XR_ITS ---
EXAMINATION: XR CHEST CLINICAL INFORMATION: R05.9 - Cough, unspecified COMPARISON: July 04, 2023. TECHNIQUE: 2 views of the chest were obtained. FINDINGS: Low lung volume. No consolidation, pleural effusion or pneumothorax. Cardiomediastinal silhouette size is mildly prominent, unchanged. Calcified plaque thoracic aorta. Multilevel thoracic and upper lumbar spondylosis with multilevel compression deformities of the vertebral bodies no fully evaluated due to patient's body habitus. XR/XR chest 2V IMPRESSION: Poor inspiration without acute airspace disease.. Electronically signed by: Valentin France MD 02/08/2025 02:51 PM EDT
--- OUTSIDE RECORDS SUMMARY | 2025-02-08 13:13 | XMS_ITS ---
Author Organization [facility] Address [address] [place] [address] Care Team Providers Care Electrical Control Assembler Name Role Phone Wilmer Enciso MD Primary Care Provider Unavail Corbin Shore Unavailable [phone] REASON FOR VISIT colonoscopy Encounters Encounter Location Date Provider Diagnosis [facility] [address] [place] [address] 09/06/2024 Corbin Swanson Plan Of Treatment No Information Progress Notes * BEVERLY CABRERA VDOB:[birth year] (69 yo M)Acc No.[id number]:09/06/2025 Patient:?BEVERLY CABRERA Laz :1955???Age:69 Y???Sex:Male Address:[address] [place] [address] * true * Date:? Generated for Brendai rosa maria/Jan/eTransmitting on:?02/08/2025 01:13 PM EDT
--- OUTSIDE RECORDS SUMMARY | 2025-02-08 13:13 | XMS_ITS | Clinical Summary ---
Author Organization [facility] Address [address] [place] [address] Phone Care Team Providers Care Cask Maker Name Role Phone Francie Keith NP Primary [...] AM EST Office Visit Orthopedic Surgery - [address] [address] Jack Cuevas, DPM Alcoholic peripheral [...] 12/08/2024 9:37 AM EST Plan of Treatment Health Maintenance Due Date Last Done Comments [...] Insurance MEDICARE MEDICAID - [place] Care Teams Cask Maker Relationship Specialty Start Date End Date Francie Keith NP [address] [place] [phone] PCP - General 05/27/23
--- OUTSIDE RECORDS SUMMARY | 2025-02-08 13:13 | XMS_ITS | Data Portability ---
Author Organization [facility] Address [address] [place] [address] Care Team Providers Care Boat Outfitter Name Role Phone WILLIAM FRANCOIS Primary Care Provider Assessment Encounter Date Assessment Date Assessment LastModified by Organization Details LastModified Time 08/07/2023 08/07/2023 Time On Scene with Patient: 00:45:06 [email or web address] Not available 08/07/2023 09:43:06 08/07/2023 08/07/2023 Brief Overview: 67 y/o male c/o cough now x 1 month since he release from [facility] on 07/07. he was admitted for aspiration [...] after care of this patient according to [facility]'s infection prevention protocols. [email or web address] Not available 08/07/2023 09:53:47 Plan of Treatment Reminders Order Date Submit Date Provider Last Modified By Organization Details Last Modified Time Details Appointments None recorded. Lab None recorded. Referral None recorded. Procedures None recorded. Surgeries None recorded. Imaging XR, chest, 2 view - hx aspiration pneumonia in June 242022 023 [facility] [employer] [address], [place], [address], 14:04:05 Medication Orders None recorded. Patient TargetsNo targets recorded. Patient Instructions Encounter Date Encounter Id Patient Instructions Last Modified By Organization Details Last Modified Time 08/07/2023 [id number] Inhaler Instructions Before use, you need to [...] after cleaning actually helps it work better. [email or web address] Not available 08/07/2023 09:29:49 Reason for Referral [...] GAMBLE M.D. 023 3:35:2 0 PM EDT. [email or web address] [facility] [address] [facility] [address], [place], [address], 08/08/2023 12:17:49 Result Notes None recorded. Procedures Surgical History Date Name Laterality Status Provider Name and Address Organization Details Recorded Time Cholecystectomy completed MICHELE Petersone, [place], [address], [place] [facility] 08/07/2023 09:11:13 Hernia Repair completed MICHELE Peterson [address], [place], [address], [place] [facility] 08/07/2023 09:11:21 operative procedure on knee completed MICHELE Peterson [address], [place], [address], [place] [facility] 08/07/2023 09:11:29 total replacement of hip completed MICHELE Peterson [address], [place], [address], [place] [facility] 08/07/2023 09:11:40 Imaging Results Imaging Date Name Status LastModified by Organiz ation Details LastModified Time 08/07/2023 XR, chest, 1 view completed [address] [facility] [place], [address], 08/08/2023 12:17:49 Procedure Notes None recorded. Medical Equipment None Reported. Allergies Allergen ID Allergen Name Allergen Category Reaction Reaction Severity Criticality Documentation Date Start Date Code Code System Note Provider Name and Address Organization Details Recorded Time 913207 fentanyl medicatio n Not available Not available Not available 08/07/2023 4337 RxNorm MICHELE Peterson [address] [place], [address], [place] [facility] 09:[facility]:10 Medications Name Sig Start Date [...] /min 128 mm[Hg] 74 mm[Hg] Not Available [facility] 09:11:51 Social History Question Answer Notes LastModified by Organizat ion Details LastModified Time Tobacco Smoking Status Never Smoker MICHELE Peterson [address] [facility] [place], [address], [place] [facility] 08/07/2023 09:10:04 What Is Your Level Of Alcohol Consumption? None [email or web address] Information not available 08/07/2023 Fall Risk: Do You Feel Unsteady When Standing Or Walking? Yes [email or web address] Information not available 08/07/2023 Excessive Alcohol Or Drug Use No Information not available 08/07/2023 Does This Patient Have A PCP? Yes [email or web address] Information not available 08/07/2023 Has The Patient Seen Their PCP In The Past 6 Months? Yes [email or web address] Information not available 08/07/2023 ADL: Do You Need Help With Daily Activities Such As Bathing, Preparing Meals, Dressing, Or Cleaning? Yes (Z74.1) [email or web address] Information not available 08/07/2023 What Is Your Housing Situation Today? I Have Housing [email or web address] Information not available 08/07/2023 Do You Use Any Illicit Or Recreational Drugs? No [email or web address] Information not available 08/07/2023 Sex: Unknown Functional Status None recorded. Mental Status None recorded. Family History Nothing Reported. Medical History Condition Response Diabetes N Coronary Artery Disease N CHF N Parkinson's Disease N Cancer N Stroke N Dementia N Hypothyroidism N Asthma N COPD N Depression Y High Cholesterol Y Rheumatoid Arthritis Y Pulmonary Embolism N Hypertension Y Osteoporosis N A-fib N Kidney Disease N Past Encounters Encounter ID Performer Location Encounter Start Date Encounter Closed Date Diagnosis/Indication Diagnosis SNOMED-CT Code Diagnosis ICD10 Code Diagnosis Note [id number] MICHELE Peterson [facility] [address] [place] [address] 08/07/2023 08:58:44 08/19/2023 22:31:59 Pneumonia 962437500 J18.9 Status of condition: {{Acute* E xacerbatio [...] edema, lethargy, weakness, dizziness, vomiting. Essential hypertension [id number] I10 Status of condition: {{Acute Ex acerbation [...] sob, weakness, dizziness, HAs, edema, vision changes. [id number] MICHELE Peterson [facility] [address] [place] [address] 08/07/2023 09:00:31 08/10/2023 12:56:52 Health Concerns Section Related Observation LastModified by Organization Detai ls LastModified Time None Recorded Concern Status LastModified by Organization Details LastModified Time None Recorded Advance Directives Directive None Recorded Payers Encounter Date Sequence Insurance Name Policy Number Policy Hernandez Covered Member ID Hernandez Member ID Guarantor Name 08/07/2023 1 [place] [facility] Samanta Barros [id number] Samanta Barros 08/07/2023 2 [place] [facility] Samanta Barros [id number] Samanta Barros 08/07/2023 1 [place] [facility] Samanta V [place] [id number] Samanta Barros 08/07/2023 2 [place] [facility] Samanta Barros [id number] Samanta Barros Notes Date Note Type Note Provider Name and Address Organization Details Recorded Time 08/07/2023 text/html 67 y/o male new to and provider with hx of depression, HTN, hyperlipidemia, RA, Epilepsy, left hemiplegia, hand tremors, alcohol abuse, GERD, BPH, Bipolar, chronic pain, glaucoma, urinary retention, hx of traumatic subdural hemorrhage. pt was admitted to [facility] on 06/30-07/07 with dx of aspiration, pneumonia, [...] needed it. MICHELE Peterson [address], [place], [address], [place] [facility] 08/07/2023 09:59:26 08/07/2023 text/html duplicate chart, see other note from 08/07/23. MICHELE Peterson [address], [place], [address], [place] [facility] 08/07/2023 10:01:52
--- OUTSIDE RECORDS SUMMARY | 2025-02-08 13:14 | XMS_ITS ---
Author Organization [facility] Address [address] [place] [address] Care Team Providers Care Drafter Cartographic Name Role Phone Wilmer Enciso MD Primary Care Provider Unavail Corbin Shore Unavailable [phone] REASON FOR VISIT Would like to schedule a colon Encounters Encounter Location Date Provider Diagnosis [facility] [address] [place] [address] 10/18/2024 Corbin Swanson Plan Of Treatment No Information Progress Notes * BEVERLY CABRERA VDOB:[birth year] (69 yo M)Acc No.[id number]:10/18/2024 Patient:?RICK BEVERLY Laz :1955???Age:69 Y???Sex:Male Address:[address] [place] [address] * true * Date:? Generated for Carlitos crane/Jan/eTransmitting on:?02/08/2025 01:13 PM EDT
== END 2025-02-08 11:01 | disposition home or self-care (01) ==
LOC: HO.XRAY 11:00
PROVIDERS: PCP Internal Medicine; Visit Provider Nurse Practitioner Family
DX: R05.9 Cough, unspecified (principal)
CPT/HCPCS: 71046

== ENCOUNTER → 2025-02-08 11:06 | Outpatient (BNV) | payer MEDICARE, MEDICAID, SELFPAY | PROVIDERS: PCP Internal Medicine; Visit Provider Radiology Diagnostic Radiology | DX: R05.9 Cough, unspecified (principal) | CPT/HCPCS: 71046 ==

== ENCOUNTER 2025-02-20 10:30 | Outpatient (REF) | payer MEDICARE, MEDICAID, SELFPAY ==
--- NOTE | ~2025-02-20 | CT_ITS ---
CLINICAL HISTORY: CHRONIC COUGH CT chest with contrast Comparison: CT/SR - CT ANGIO CHEST PE PROTOCOL - 06/30/23 14:45 EDT Findings: The heart is normal size. Mild Atherosclerosis calcification of the coronary artery. The visualized thyroid and mediastinum are unremarkable. Elevation of the right hemidiaphragm. No consolidation or effusion. Mild atelectasis of the lung base. There is nodular appearance of the liver surface. The bones are intact. IMPRESSION: No acute finding of the chest. Nodular appearance of the liver surface concerning for cirrhosis. Clinical correlation is recommended. This document has been electronically signed by: Cadence Fowler MD on 02/21/2025 16:47:30
[2025-02-20] MEDS: iohexoL 350 MG/ML 75 ML INFUS..BTL 65 ML IV (11:29)
--- OUTSIDE RECORDS SUMMARY | 2025-02-20 12:19 | XMS_ITS | Clinical Summary ---
Author Organization [facility] Address [address] [place] [address] Phone Care Team Providers Care Principal Gifts Officer Name Role Phone Francie Keith NP Primary [...] AM EST Office Visit Orthopedic Surgery - [address] [address] Jack Cuevas, DPM Alcoholic peripheral [...] 11/02/2019, 10/12/2017, Additional history exists RSV Immunization Adult Patients Completed 10/29/2023 Hepatitis A Vaccines Aged Out [...] Insurance MEDICARE MEDICAID - [place] Care Teams Principal Gifts Officer Relationship Specialty Start Date End Date Francie Keith NP [address] [place] [phone] PCP - General 05/27/23
--- OUTSIDE RECORDS SUMMARY | 2025-02-20 12:19 | XMS_ITS ---
Author Organization [facility] Address [address] [place] [address] Care Team Providers Care President Ceo & Founder Name Role Phone Wilmer Enciso MD Primary Care Provider Unavail Corbin Shore Unavailable [phone] REASON FOR VISIT colonoscopy Encounters Encounter Location Date Provider Diagnosis [facility] [address] [place] [address] 09/06/2024 Corbin Swanson Plan Of Treatment No Information Progress Notes * BEVERLY CABRERA VDOB:[birth year] (69 yo M)Acc No.[id number]:09/06/2024 Patient:?BEVERLY CABRERA Laz :1955???Age:69 Y???Sex:Male Address:[address] [place] [address] * true * Date:? Generated for Brendai rosa maria/Jan/eTransmitting on:?02/20/2025 12:19 PM EDT
--- OUTSIDE RECORDS SUMMARY | 2025-02-20 12:19 | XMS_ITS ---
Author Organization [facility] Address [address] [place] [address] Care Team Providers Care Terminal Manager Name Role Phone Wilmer Enciso MD Primary Care Provider Unavail Corbin Shore Unavailable [phone] REASON FOR VISIT Would like to schedule a colon Encounters Encounter Location Date Provider Diagnosis [facility] [address] [place] [address] 10/18/2024 Corbin Swanson Plan Of Treatment No Information Progress Notes * BEVERLY CABRERA VDOB:[birth year] (69 yo M)Acc No.[id number]:10/18/2024 Patient:?RICK BEVERLY Laz :1955???Age:69 Y???Sex:Male Address:[address] [place] [address] * true * Date:? Generated for Carlitos crane/Jan/eTransmitting on:?02/20/2025 12:19 PM EDT
[2025-02-20 16:14] LABS: Creatinine POC 0.6 mg/dL (0.5-1.4); GFR POC > 60
== END 2025-02-20 10:31 | disposition home or self-care (01) ==
LOC: HO.CT 10:30
PROVIDERS: PCP Internal Medicine; Visit Provider Physician Assistant Medical
DX: R05.3 Chronic cough (principal)
CPT/HCPCS: 71260; 82565; Q9967

== ENCOUNTER → 2025-02-20 11:03 | Outpatient (BNV) | payer MEDICARE, MEDICAID, SELFPAY | PROVIDERS: PCP Internal Medicine; Visit Provider Nuclear Medicine | DX: R05.3 Chronic cough (principal) | CPT/HCPCS: 71260 ==

== ENCOUNTER 2025-02-27 10:59 | Outpatient (REF) | payer MEDICARE, MEDICAID, SELFPAY ==
[2025-02-27 12:28] LABS: Ammonia 51 umol/L (13-55)
[2025-02-27 13:44] LABS: Valproate 36.8 mcg/mL (50.0-100.0)
[2025-02-27 13:49] LABS: Alanine Aminotransferase 71 U/L (0-40); Albumin Level 4.5 g/dL (3.5-5.0); Alkaline Phosphatase 72 U/L (39-117); Anion Gap 12 (12-20); Aspartate Amino Transferase 44 U/L (5-37); Bilirubin Total 0.7 mg/dL (0.0-1.0); Blood Urea Nitrogen 19 mg/dL (9-16); Calcium 10.1 mg/dL (8.4-10.2); Carbon Dioxide 26 mmol/L (22-29); Chloride 104 mmol/L (96-108); Estimated Glomerular Filt Rate > 60; Glucose Random 88 mg/dL (60-115); Potassium 3.9 mmol/L (3.3-5.1); Sodium 138 mmol/L (135-145); Total Protein 7.7 g/dL (6.5-8.0)
--- OUTSIDE RECORDS SUMMARY | 2025-02-27 14:04 | XMS_ITS | Clinical Summary ---
Author Organization 175 [facility] Address [address] [place] [address] Phone Care Team Providers Care Manager Bank Name Role Phone Francie Keith NP Primary [...] (LIDODERM) 5 % patchIndicatio ns:Alcoholic peripheral neuropathy ([facility] V24) Apply 1 patch topically 1 (one) time [...] (hypertension) 09/27/2024 Hyperlipidemia 09/27/2024 Traumatic brain injury ([facility]/HCC V24, CMS/HCC V28 ) 09/27/2024 Alcoholic cirrhosis (CMS/HCC V24, CMS/HCC V28) 1 11/27/2023 Thoracic spine pain 09/27/2024 Secondary parkinsonism (CMS/HCC V24, CMS/HCC V28 ) 09/27/2024 Encounters Date Type Department Care Team Description 12/08/2024 9:45 AM EST Office Visit Orthopedic Surgery - [address] [phone] Jack Cuevas, DPLisandra Alcoholic peripheral neuropathy ([facility] V24) (Primary Dx); Paralyzed hemidiaphragm; Acquired hammer toe [...] Care Team (Late st Contact Info) Description 03/29/2025 2:30 PM EDT Office Visit Orthopedic Surgery - [place] [address] [phone] Jack Cuevas, DPM [address] [address] Health Maintenance Due Date Last Done Comments [...] age to complete this topic Meningococcal B Vaccine Aged Out No l onger eligible based on patient's age to complete this topic RSV Immunization Patients Under 20 months Aged Out No longer eligible based on patient's age to complete this topic Varicella Vaccines Aged Out No longer eligible based on patient's age to complete this topic Insurance MEDICARE MEDICAID - [place] Care Teams Manager Bank Relationship Specialty Start Date End Date Francie Keith NP [address] [place] [phone] PCP - General 05/27/23
== END 2025-02-27 11:00 | disposition home or self-care (01) ==
LOC: HO.LAB 10:59
PROVIDERS: PCP Internal Medicine; Visit Provider Psychiatry & Neurology Psychiatry
DX: F33.9 Major depressive disorder, recurrent, unspecified (principal); Z87.820 Personal history of traumatic brain injury; G31.89 Other specified degenerative diseases of nervous system; F09 Unspecified mental disorder due to known physiological condition; S06.9X9S Unspecified intracranial injury with loss of consciousness of unspecified duration, sequela
CPT/HCPCS: 36415; 80053; 80164; 82140

== ENCOUNTER 2025-03-08 12:59 | Outpatient (REF) | payer MEDICARE, MEDICAID, SELFPAY ==
--- NOTE | ~2025-03-08 | US_ITS ---
CLINICAL HISTORY: PAIN US Scrotum with Doppler Comparison: None Findings: Right testicle normal echotexture, 4 x 3 x 3 cm. Left testicle normal echotexture, 4 x 3 x 2.8 cm. Color Doppler and arterial/venous spectral tracings of both testicles within normal limits. Epididymides are is significant for a 6 mm left epididymal cyst. There are small bilateral hydroceles. IMPRESSION: Small bilateral hydroceles. Left epididymal head cyst. No evidence of torsion. This document has been electronically signed by: Ilir Lopez MD on 03/10/2025 08:46:15
--- OUTSIDE RECORDS SUMMARY | 2025-03-08 15:18 | XMS_ITS | Patient Health Record ---
Author Organization [facility] Address [address] [place] [phone] Care Team Providers Care Outside [employer] Name Role Phone Wilmer Enciso MD Primary Care Provider Unavail able Corbin Swanson Unavailable [phone] Allergies Allergen (clinical drug ingredient) Drug/Non Drug Allergy documented on EMR Reaction Allergy Type Onset Date Status fentanyl Fentanyl Unknown Drug Allergy Active Reason For Referral No Information Medications Medication SIG (Take, Route, Frequency, Duration) Notes [...] Orall y twice a day Active Nystatin 902911 UNIT/ML 4 mL Mouth/Throa t Four times [...] Once a day for 30 day(s) Active Ondansetron 4 MG 1 tablet on the tong ue and allow to dissolve Orally Every 4 to 6 hours if needed for nausea for 30 days Active Senna 8.6 MG TAKE 1 TABLET [...] day(s) Active Hydrocortisone 1 % 1 application [employer] ally Once a day Active Ibuprofen 800 MG 1 tablet with food o r milk as needed Orally every 8 hrs Active Guaifenesin DM Cough & Chest Active Bisacodyl Laxative 10 MG 1 suppository a s needed Rectal Once a day for 30 day(s) Active Anusol-HC 2.5 % 1 application [employer] ally Twice a day Active Artificial Tear [...] as needed Inhalation every 6 hrs Active Immunizations Vaccine Route Administration Date Status Comme nts Influenza Unknown 08/16/2019 Administered Influenza Unknown 09/11/2020 Administered Influenza Unknown 09/03/2021 Administered Influenza Unknown 11/16/2023 Administered Social History Tobacco Use: Social History Observation Description Date Details (start date - stop date) Never Smoker NA - NA Tobacco Use/Smoking Question Answer Notes Patient is a nonsmoker Alcohol Screen Question Answer Notes Did you have a drink containing alcohol in the p ast year? No Points 0 Interpretation Negative Section Notes: Nonsmoker; recovering alcoho lic--abstinent since 01/2018 Nonsmoker; recovering alcoho lic--minimal alcohol use since 01/2018 Nonsmoker; recovering alcoho lic--minimal alcohol use since 01/2018 Nonsmoker; recovering alcoho lic--minimal alcohol use since 01/2018 Nonsmoker; recovering alcoho lic--minimal alcohol use since 01/2018 Nonsmoker; recovering alcoho lic--minimal alcohol use since 01/2018 Problems Problem Type SNOMED Code ICD Code Onset Dates Problem Status W/U Status Risk Notes Problem 741408589 Encounter for screening for malignant neoplasm of colon (Z12.11) Active confirmed Problem 617541731 History of adenomatous polyp of colon (Z86.010) Active confirmed Problem 414222223 Alcoholic cirrho sis of liver without ascites (K70.30) Active confirmed Problem 614526561 Gastroesophageal reflux disease without esophagitis (K21.9) Active confirmed Problem 05123245 Alcoholic liver disease (K70.9) Active confirmed Problem 98419927 Constipation, unspecified constipation type (K59.00) Active confirmed Problem Acute gastroenteritis (71304994) Acute gastroenteritis (K52.9) Active confirmed Vital Signs Blood pressure diastolic 00 mm Hg 08/25/2024 Height 74 in 08/25/2024 Blood pressure systolic 00 mm Hg 08/25/2024 Weight 230 lbs 08/25/2024 BMI 29.53 kg/m2 08/25/2024 Encounters Encounter Location Date Provider Diagnosis [facility] [address] [place] [phone] 08/25/2024 Corbin Swanson Acute gastroenteriti s K52.9 ; Alcoholic liver disease K70.9 ; Alcoholic cirrhosis of liver without ascites K70.30 and Constipation, unspecified constipation type K59.00 [facility] [address] [place] [phone] 06/24/2024 Corbin Swanson [facility] [address] [place] [phone] 07/27/2024 Corbin Swanson [facility] [address] [place] [phone] 08/23/2024 Corbin Swanson [facility] [address] [place] [phone] 09/06/2024 Corbin Swanson [facility] [address] [place] [phone] 10/18/2024 Corbin Swanson Assessments Encounter Date Diagnosis (ICD Code) Assessment Notes Treatment Notes Treatment Clinical Notes Section Notes 08/25/2024 Alcoholic liver disease (ICD-10 - K70.9) Overall, Samanta's recent GI illness seems to be resolving nicely without any specific treatment other than some supportive care and passage of time. This sounds consistent with a gastroenteritis given the associated vomiting and diarrhea. It sounds like his workup at the ER several weeks ago was unremarkable. I did review all this with Samanta and advised him to simply continue to observe things and use the Zofran as needed. I will obtain a copy of his ER visit including the CT scan and laboratories. I advised him that I don't think he needs any other intervention on my part such as endoscopy or colonoscopy. He will otherwise continue his current regimen including the multiple medications that he is on for the chronic constipation. I did advise him to contact me if he has any problems or questions that I can be of assistance with. Samanta was comfortable with this plan. Thank you again for allowing me to participate in Samanta's care. I shall continue to keep you advised of his progress as needed. Please do not hesitate to contact me if I can be of any further assistance in the future. 08/25/2024 Acute gastroenteritis (ICD-10 - K52.9) Continue Zofran as needed We will get copies of the [facility] visit in 07/2024 Overall, Samanta's recent GI illness seems to be resolving nicely without any specific treatment other than some supportive care and passage of time. This sounds consistent with a gastroenteritis given the associated vomiting and diarrhea. It sounds like his workup at the ER several weeks ago was unremarkable. I did review all this with Samanta and advised him to simply continue to observe things and use the Zofran as needed. I will obtain a copy of his ER visit including the CT scan and laboratories. I advised him that I don't think he needs any other intervention on my part such as endoscopy or colonoscopy. He will otherwise continue his current regimen including the multiple medications that he is on for the chronic constipation. I did advise him to contact me if he has any problems or questions that I can be of assistance with. Samanta was comfortable with this plan. Thank you again for allowing me to participate in Samanta's care. I shall continue to keep you advised of his progress as needed. Please do not hesitate to contact me if I can be of any further assistance in the future. 08/25/2024 Alcoholic cirrhosis of liver without ascites (ICD-10 - K70.30) Overall, Donaldos recent GI illness seems to be resolving nicely without any specific treatment other than some supportive care and passage of time. This sounds consistent with a gastroenteritis given the associated vomiting and diarrhea. It sounds like his workup at the ER several weeks ago was unremarkable. I did review all this with Samanta and advised him to simply continue to observe things and use the Zofran as needed. I will obtain a copy of his ER visit including the CT scan and laboratories. I advised him that I don't think he needs any other intervention on my part such as endoscopy or colonoscopy. He will otherwise continue his current regimen including the multiple medications that he is on for the chronic constipation. I did advise him to contact me if he has any problems or questions that I can be of assistance with. Samanta was comfortable with this plan. Thank you again for allowing me to participate in Samanta's care. I shall continue to keep you advised of his progress as needed. Please do not hesitate to contact me if I can be of any further assistance in the future. 08/25/2024 Constipation, unspecified constipation type (ICD-10 - K59.00) Overall, Samanta's recent GI illness seems to be resolving nicely without any specific treatment other than some supportive care and passage of time. This sounds consistent with a gastroenteritis given the associated vomiting and diarrhea. It sounds like his workup at the ER several weeks ago was unremarkable. I did review all this with Samanta and advised him to simply continue to observe things and use the Zofran as needed. I will obtain a copy of his ER visit including the CT scan and laboratories. I advised him that I don't think he needs any other intervention on my part such as endoscopy or colonoscopy. He will otherwise continue his current regimen including the multiple medications that he is on for the chronic constipation. I did advise him to contact me if he has any problems or questions that I can be of assistance with. Samanta was comfortable with this plan. Thank you again for allowing me to participate in Samanta's care. I shall continue to keep you advised of his progress as needed. Please do not hesitate to contact me if I can be of any further assistance in the future. Plan Of Treatment Pending Test Test Name Order Date LIVER PROFILE 05/18/2018 LIVER PROFILE 10/04/2020 AMMONIA 05/18/2018 CBC w DIFF 10/04/2020 CBC [...] Start Date Coverage End Date MEDICARE OF [facility] [address] [place] [address] [id number] SAMANTA CABRERA Self - patient is the insured MEDICAID OF [facility] [address] [place] [phone] [id number] SAMANTA CABRERA Self - patient is the insured Medical (General) History Medical History History ICD Code Urinary incontinence Hypertension Denies LA,DM,CVA,Lung disease,renal dise ase Alcohol-induced cirrhosis--n eg. CT of liver in 09/2019 at [facility]--no ascites, no masses---mild splenomgealy, positive varices Trouble walking due to trent ce issues in relation to his subdural hematomas and craniotomies Depression--at [facility] for 2 months 11/2021 to 01/2022; then to rehab until early February GERD/esophagitis--GI bleedin g admission at [facility]---upper endoscopy in 2006 revealed erosive esophagitis and esophageal ulcers while he was actively drinking; a followup endoscopy in 2008 revealed complete healing and no sign of Ac's esophagus Colonoscopies--2014 and 2016 at the [facility]--the 2014 exam was suboptimal due to poor bowel prep; the 2017 exam revealed a small tubular adenoma and small serrated adenoma EGD in 2016 at the [facility] was negative for varices nor significant esophagitis--gastric biopsies were negative for H. pylori Chronic constipation Ischemic colitis in 2021. He had a Flex sig with Dr. Steiner Surgical History Surgery Date(Month/Year) Craniotomy x2 for subdurals 2006 Cholecystectomy 2011 Hernia repair age 4 Umbilical hernia repair 01/12/2020
--- OUTSIDE RECORDS SUMMARY | 2025-03-08 15:18 | XMS_ITS | Clinical Summary ---
Author Organization 175 [facility] Address [address] [place] [address] Phone Care Team Providers Care [employer] Name Role Phone Francie Keith NP Primary Care Provider [phone] Allergies Active Allergy Reactions Criticality Noted Date [...] (LIDODERM) 5 % patchIndicatio ns:Alcoholic peripheral neuropathy ([facility] V24) Apply 1 patch topically 1 (one) [...] (hypertension) 09/27/2024 Hyperlipidemia 09/27/2024 Traumatic brain injury ([facility]/HCC V24, CMS/HCC V28 ) 09/27/2024 Alcoholic cirrhosis (CMS/HCC V24, CMS/HCC V28) 1 11/27/2023 Thoracic spine pain 09/27/2024 Secondary parkinsonism (CMS/HCC V24, CMS/HCC V28 ) 09/27/2024 Encounters Date Type Department Care Team Description 12/08/2024 9:45 AM EST Office Visit Orthopedic Surgery - [address] [phone] Jack Cuevas, DPLisandra Alcoholic peripheral neuropathy ([facility] V24) (Primary Dx); Paralyzed hemidiaphragm; Acquired hammer [...] PM EDT Office Visit Orthopedic Surgery - [place] [address] [phone] Jack Cuevas, DPM [address] [address] Health Maintenance Due Date Last Done Comments [...] Insurance MEDICARE MEDICAID - [place] Care Teams [employer] Relationship Specialty Start Date End Date Francie Keith NP [address] [place] [phone] PCP - General 05/27/23
--- OUTSIDE RECORDS SUMMARY | 2025-03-08 15:19 | XMS_ITS ---
Author Organization [facility] Address [address] [place] [phone] Care Team Providers Care Studio Associate Name Role Phone Wilmer Enciso MD Primary Care Provider Unavail able Corbin Swanson Unavailable [phone] Allergies Allergen (clinical drug ingredient) Drug/Non Drug Allergy documented on EMR Reaction Allergy Type Onset Date Status fentanyl Fentanyl Unknown Drug Allergy Active REASON FOR VISIT pt presents today for vomitting Medications Medication SIG (Take, Route, Frequency, Duration) [...] day(s) Active Hydrocortisone 1 % 1 application Lunch Wagon Operator ally Once a day Active Ibuprofen 800 [...] day(s) Active Anusol-HC 2.5 % 1 application Lunch Wagon Operator ally Twice a day Active Artificial Tear Solution - as directed Ophthalmic Active Magnesium Hydroxide 2400 MG/10ML 5 mL Orally Twice a day for 30 day(s) Active Nystatin 823224 UNIT/ML 4 mL Mouth/Throa t Four times [...] Once a day for 30 day(s) Active Social History Tobacco Use: Social History Observation Description Date Details (start date - stop date) Never Smoker NA - NA Tobacco Use/Smoking Question Answer Notes Patient is a nonsmoker Alcohol Screen Question Answer Notes Did you have a drink containing alcohol in the p ast year? No Points 0 Interpretation Negative Section Notes: Nonsmoker; recovering alcoho lic--minimal alcohol use since 01/2018 Problems Problem Type SNOMED Code ICD Code Onset Dates Problem Status W/U Status Risk Notes Problem Acute gastroenteritis (94509923) Acute gastroenteritis (K52.9) Active confirmed Vital Signs Blood pressure systolic 00 mm Hg 08/25/20 24 Blood pressure diastolic 00 mm Hg 024 Height 74 in 08/25/2024 Weight 230 lbs 08/25/2024 BMI 29.53 kg/m2 08/25/2024 Encounters Encounter Location Date Provider [facility] [address] [facility] [address] [place] [address] 08/25/2024 Corbin Swanson Acute gastroenteriti s K52.9 ; Alcoholic liver disease K70.9 ; Alcoholic cirrhosis of liver without ascites K70.30 and Constipation, unspecified constipation type K59.00 Assessments Encounter Date Diagnosis (ICD Code) Assessment Notes Treatment Notes Treatment Clinical Notes Section Notes 08/25/2024 Acute gastroenteritis (ICD-10 - K52.9) Continue Zofran as needed We will get copies of the [facility] ER visit in 07/2024 Overall, Donaldos recent GI illness seems to [...] further assistance in the future. 08/25/2024 Alcoholic liver disease (ICD-10 - K70.9) Overall, Donaldos recent GI illness seems to [...] liver without ascites (ICD-10 - K70.30) Overall, Samanta's recent GI illness seems to [...] assistance in the future. Plan Of Treatment Medication Medication Name Sig Start Date Stop Date Notes Ondansetron 4 MG 1 tablet on the tong ue and allow to dissolve Orally Every 6 hours as needed for nausea for 30 day(s) 08/25/2024 Treatment Notes Assessment Notes Acute gastroenteritis Continue Zofran as needed We will get copies of the [facility] ER visit in 07/2024 Next Appt Details Follow Up: prn, Reason: Progress Notes * SAMANTA CABRERA VDOB:[birth year] (69 yo M)Acc No.[id number]:08/25/2024 Progress Notes Patient:?SAMANTA CABRERA V Provider:?Corbin Swanson MD :1955???Age:69 Y???Sex:Male Deangelo e:08/25/2024 Address:[address] [place], [place] [id number] Pcp:Wilmer Enciso MD Subjective: * Chief Complaints: * ???Pt presents today for vom itting * HPI: ???incontinence:? I saw Samanta in the office today for evaluation of some recent vomiting and loose stools. ?I last saw Samanta in November for his underlying alcohol-related liver disease and constipation. Since that time things have been seemingly stable but about 3 weeks ago he began having some episodes of nausea with associated vomiting and occasional loose stools. He did not notice any sign of bleeding either in the vomit or in the bowel movements. He describes being seen at [facility] ER about 3 weeks ago. He describes a CT scan and laboratories that were unremarkable. He was given some Zofran in the ER and a Zofran prescription. He reports that has been helping things. He currently reports that his nausea and vomiting have greatly improved and he is no longer having any diarrhea. He denies any abdominal pain, signs of jaundice, or fevers. He is feeling much better than when he went to the ER about 3 weeks ago. He denies any preceding use of antibiotics, ill contacts at his intermediate, or travel. * ROS:?General/Constitutional:?Change in appetite?denies, denies.?Chills?denies, denies.?Fatigue?denies, denies.?Ophthalmologic:?Comments?all negative, all negative.?ENT:?Comments?all negative, all negative.?Respiratory:?hemoptysis?denies, denies.?Cough?denies, denies.?Cardiovascular:?Chest pain?denies, denies.?Orthopnea?denies, denies.?Gastrointestinal:?Comments?See HPI for details, See HPI for details.?Genitourinary:?Hematuria?denies, denies.?Dysuria?denies, denies.?Musculoskeletal:?Painful joints?denies, denies.?Weakness?denies, denies.?Skin:?Itching?denies, denies.?Rash?denies, denies.?Neurologic:?Admits?Balance difficulty.?Admits?Gait abnormality.?Headache?denies, denies.?Admits?Seizures.? * Medical History:? * Surgical History:?Craniotomy x2 for subdurals 2007Cholecystectomy 2012Hernia repair age 4 Umbilical hernia repair 01/12/2020 * Hospitalization/Major Diagno stic Procedure:?No Hospitalization History. * Family History:?Father: dece ased.?Mother: .? No known hx of colon cancer. * Social History:?Tobacco Use:?Tobacco Use/Smoking?Patient is a?nonsmoker.?Drugs/Alcohol:?Alcohol Screen?Did you have a drink containing alcohol in the past year??No,?Points?0,?Interpretation?Negative.?Miscellaneous:?Marital status: . Occupation: DISABLED. ???Nonsmoker; recovering alcoholic--minimal alcohol use since 01/2018. * Medications:?TakinghydrOXYzi ne HCl 25 MG Tablet 1 tablet as needed Orally Once a dayZolpidem Tartrate 5 MG Tablet Sublingual 1 tablet under the tongue and allow to dissolve at bedtime as needed Sublingual Once a dayOLANZapine 2.5 MG Tablet 1 tablet Orally Once a dayALPRAZolam 0.5 MG Tablet 1 tablet Orally Twice a dayNaltrexone HCl 50 MG Tablet 1 tablet Orally Once a dayLinzess 145 MCG Capsule 1 capsule at least 30 minutes before the first meal of the day on an empty stomach Orally Once a dayNystatin 053764 UNIT/ML Suspension 4 mL Mouth/Throat Four times a dayPropranolol HCl 20 MG/5ML Solution 5 mL Orally Once a dayAnusol-HC 2.5 % Cream 1 application Externally Twice a dayBisacodyl Laxative 10 MG Suppository 1 suppository as needed Rectal Once a dayMagnesium Hydroxide 2400 MG/10ML Suspension 5 mL Orally Twice a dayArtificial Tear Solution - Solution as directed Ophthalmic Hydrocortisone 1 % Cream 1 application Externally Once a dayOndansetron HCl 4 MG Tablet 1 tablet Orally Once a dayGuaifenesin DM Cough & Chest Ibuprofen 800 MG Tablet 1 tablet with food or milk as needed Orally every 8 hrsamLODIPine Benzoate 1 MG/ML Suspension 5 ml Orally Once a dayCentrum Silver - Tablet one tablet Orally once a dayProscar 5 MG Tablet 1 tablet Orally Once a dayXalatan 0.005 % Solution 1 drop into affected eye in the evening Ophthalmic Once a daySinemet 25-100 MG Tablet 1 tablet Orally Three times a dayLaMICtal 150 MG Tablet 1 tablet Orally Twice a dayQUEtiapine Fumarate 75 mg Tablet 1 tablet Orally twice a dayAtivan 0.5 MG Tablet 1 tablet as needed Orally twice a daytraZODone HCl 150 MG Tablet 1 tablet at bedtime Orally hsTylenol 8 Hour 650 MG Tablet Extended Release 1 tablet as needed Orally every 8 hrsVentolin HFA 108 (90 Base) MCG/ACT Aerosol Solution 2 puffs as needed Inhalation every 6 hrsArtificial Tears 1-0.3 % Solution 1 drop into affected eye as needed Ophthalmic 24 time(s) a dayLidocaine 5 % Patch 1 patch to skin remove after 12 hours Externally prn 12HMiraLax - Packet 1 packet mixed with 8 ounces of fluid Orally Once a dayColace 100 MG Capsule 1 capsule as needed Orally Once a dayLisinopril MiraLax - Powder 17 Grams Orally QAMMiraLax - Powder 17 Grams Orally Q PM PRN constipationFinasteride 5 MG Tablet Oral Melatonin 5 MG Tablet Oral Nortriptyline HCl 75 MG Capsule as directed Orally GNP Natural Fiber 0.52 GM Capsule Oral Trintellix 20 MG Tablet 1 tablet Orally Once a dayMiraLax 17 GM/SCOOP Powder 1 scoop with 17 GM Orally daily at 4PM on a daily and regular basis, and then also QAM as needed for constipation in addition to the 4PM dose if neededMetamucil 48.57 % Powder 1 Tablespoon Orally once or twice a day mixed in 8 ounces of water or OJ for constipationColace 100 MG Capsule 1 Orally Every evening at bedtimeMetamucil 48.57 % Powder 1 Tablespoon in at least 8 ounces of fluids Orally Once or Twice a day for constipationPreparation H 1 % Cream 1 Externally Once a day as needed for anal or rectal painSenna 8.6 MG Tablet 2 Tablets Orally At 8:00 PMSenna 8.6 MG Capsule 1 capsule each evening Orally Once a dayPolyethylene Glycol 3350 17 GM Packet 1 packet mixed with 8 ounces of fluid Orally Twice a dayMedication List reviewed and reconciled with the patientTaking hydrOXYzine HCl 25 MG Tablet 1 tablet as needed Orally Once a dayTaking Zolpidem Tartrate 5 MG Tablet Sublingual 1 tablet under the tongue and allow to dissolve at bedtime as needed Sublingual Once a dayTaking OLANZapine 2.5 MG Tablet 1 tablet Orally Once a dayTaking ALPRAZolam 0.5 MG Tablet 1 tablet Orally Twice a dayTaking Naltrexone HCl 50 MG Tablet 1 tablet Orally Once a dayTaking Linzess 145 MCG Capsule 1 capsule at least 30 minutes before the first meal of the day on an empty stomach Orally Once a dayTaking Nystatin 698896 UNIT/ML Suspension 4 mL Mouth/Throat Four times a dayTaking Propranolol HCl 20 MG/5ML Solution 5 mL Orally Once a dayTaking Anusol-HC 2.5 % Cream 1 application Externally Twice a dayTaking Bisacodyl Laxative 10 MG Suppository 1 suppository as needed Rectal Once a dayTaking Magnesium Hydroxide 2400 MG/10ML Suspension 5 mL Orally Twice a dayTaking Artificial Tear Solution - Solution as directed Ophthalmic Taking Hydrocortisone 1 % Cream 1 application Externally Once a dayTaking Ondansetron HCl 4 MG Tablet 1 tablet Orally Once a dayTaking Guaifenesin DM Cough & Chest Taking Ibuprofen 800 MG Tablet 1 tablet with food or milk as needed Orally every 8 hrsTaking amLODIPine Benzoate 1 MG/ML Suspension 5 ml Orally Once a dayTaking Centrum Silver - Tablet one tablet Orally once a dayTaking Proscar 5 MG Tablet 1 tablet Orally Once a dayTaking Xalatan 0.005 % Solution 1 drop into affected eye in the evening Ophthalmic Once a dayTaking Sinemet 25-100 MG Tablet 1 tablet Orally Three times a dayTaking LaMICtal 150 MG Tablet 1 tablet Orally Twice a dayTaking QUEtiapine Fumarate 75 mg Tablet 1 tablet Orally twice a dayTaking Ativan 0.5 MG Tablet 1 tablet as needed Orally twice a dayTaking traZODone HCl 150 MG Tablet 1 tablet at bedtime Orally hsTaking Tylenol 8 Hour 650 MG Tablet Extended Release 1 tablet as needed Orally every 8 hrsTaking Ventolin HFA 108 (90 Base) MCG/ACT Aerosol Solution 2 puffs as needed Inhalation every 6 hrsTaking Artificial Tears 1-0.3 % Solution 1 drop into affected eye as needed Ophthalmic 24 time(s) a dayTaking Lidocaine 5 % Patch 1 patch to skin remove after 12 hours Externally prn 12HTaking MiraLax - Packet 1 packet mixed with 8 ounces of fluid Orally Once a dayTaking Colace 100 MG Capsule 1 capsule as needed Orally Once a dayTaking Lisinopril Taking MiraLax - Powder 17 Grams Orally QAMTaking MiraLax - Powder 17 Grams Orally Q PM PRN constipationTaking Finasteride 5 MG Tablet Oral Taking Melatonin 5 MG Tablet Oral Taking Nortriptyline HCl 75 MG Capsule as directed Orally Taking GNP Natural Fiber 0.52 GM Capsule Oral Taking Trintellix 20 MG Tablet 1 tablet Orally Once a dayTaking MiraLax 17 GM/SCOOP Powder 1 scoop with 17 GM Orally daily at 4PM on a daily and regular basis, and then also QAM as needed for constipation in addition to the 4PM dose if neededTaking Metamucil 48.57 % Powder 1 Tablespoon Orally once or twice a day mixed in 8 ounces of water or OJ for constipationTaking Colace 100 MG Capsule 1 Orally Every evening at bedtimeTaking Metamucil 48.57 % Powder 1 Tablespoon in at least 8 ounces of fluids Orally Once or Twice a day for constipationTaking Preparation H 1 % Cream 1 Externally Once a day as needed for anal or rectal painTaking Senna 8.6 MG Tablet 2 Tablets Orally At 8:00 PMTaking Senna 8.6 MG Capsule 1 capsule each evening Orally Once a dayTaking Polyethylene Glycol 3350 17 GM Packet 1 packet mixed with 8 ounces of fluid Orally Twice a dayMedication List reviewed and reconciled with the patient * Allergies:?Fentanylyes[Aller gies Verified] Objective: * Vitals:?Wt: 230 lbs, Ht: 74 in, BMI:29.53 Index, BP: 00/00 mm Hg. * Examination: ???General Examination: ?GENERAL APPEARANCE:?pleasant, well nourished, well developed, in no acute distress--in a wheelchair.?EYES:?sclera non-icteric.?ORAL CAVITY:?mucosa moist.?NECK/THYROID:?no cervical lymphadenopathy, neck supple.?SKIN:?nonjaundiced, no spider angiomata.?HEART:?S1, S2 normal.?LUNGS:?clear to auscultation bilaterally.?ABDOMEN:?normal bowel sounds, no guarding or rigidity, no guarding or rigidity, no masses palpable, soft, nontender, nondistended.?NEUROLOGIC:?alert and oriented.? Assessment: * Assessment: 1.?Acute gastroenteritis - K 52.9 (Primary)?2.?Alcoholic liver disease - K70.9?3.?Alcoholic cirrhosis of liver without ascites - K70.30?4.?Constipation, unspecified constipation type - K59.00? Overall, Samanta's recent GI i llness seems to be resolving nicely without any [...] of any further assistance in the future. Plan: * Treatment: * Procedure Codes:?G9711 PT W/ DX PAST HX TOTAL COLECTOMY/[id number] TOBACCO NON- [id number] BP SCR NOT PRFRM REC REASON NOS * Preventive Medicine:? ??Counseling:?Care goal follow-up plan:?Above Normal BMI Follow-up?Giving encouragement to exercise,?BMI management provided?Yes.? ??Screenings:?Fall Risk Screening?Fall Risk Assessment:?No falls in the past year,?Screening:?No falls in the past year,?Assessment:?Not performed, no reason specified,?Plan of Care:?Not documented, no reason specified.? * Follow Up:?prn * * Sign off status: Completed true * Provider:?Corbin Swanson MD Date:? 024 Generated for Carlitos crane/Jan/Crescencio on:?03/08/2025 03:18 PM EDT History and Physical Notes * HPI (History of Present Illness) Category Sub-Category Detail Notes Category Not es incontinence I saw Samanta in the office today for evaluation of some recent vomiting and loose stools. I last saw Samanta in November for his underlying alcohol-related liver disease and constipation. Since that time things have been seemingly stable but about 3 weeks ago he began having some episodes of nausea with associated vomiting and occasional loose stools. He did not notice any sign of bleeding either in the vomit or in the bowel movements. He describes being seen at [facility] ER about 3 weeks ago. He describes a CT scan and laboratories that were unremarkable. He was given some Zofran in the ER and a Zofran prescription. He reports that has been helping things. He currently reports that his nausea and vomiting have greatly improved and he is no longer having any diarrhea. He denies any abdominal pain, signs of jaundice, or fevers. He is feeling much better than when he went to the ER about 3 weeks ago. He denies any preceding use of antibiotics, ill contacts at his intermediate, or travel. Examination Category Sub-Category Detail Notes Category Not es General Examination GENERAL APPEARANCE: pleasant , well [...]
--- OUTSIDE RECORDS SUMMARY | 2025-03-08 15:19 | XMS_ITS ---
Author Organization [facility] Address [address] [place] [phone] Care Team Providers Care Paste Maker Name Role Phone Wilmer Enciso MD Primary Care Provider Unavail Corbin Shore Unavailable [phone] REASON FOR VISIT colonoscopy Encounters Encounter Location Date Provider Diagnosis [facility] [address] [place] [phone] 09/06/2024 Corbin Swanson Plan Of Treatment No Information Progress Notes * BEVERLY CABRERA VDOB:[birth year] (69 yo M)Acc No.[id number]:09/06/2024 Patient:?BEVERLY CABRERA V :1955???Age:69 Y???Sex:Male Address:[address] [place] [id number] * true * Date:? Generated for Brendai rosa maria/Jan/eTransmitting on:?03/08/2025 03:19 PM EDT
--- OUTSIDE RECORDS SUMMARY | 2025-03-08 15:20 | XMS_ITS ---
Author Organization [facility] Address [address] [place] [phone] Care Team Providers Care Electric Fork Operator Name Role Phone Wilmer Enciso MD Primary Care Provider Unavail Corbin Shore Unavailable [phone] REASON FOR VISIT Would like to schedule a colon Encounters Encounter Location Date Provider Diagnosis [facility] [address] [place] [address] 10/18/2024 Corbin Swanson Plan Of Treatment No Information Progress Notes * BEVERLY CABRERA VDOB:[birth year] (69 yo M)Acc No.[id number]:10/18/2024 Patient:?RICK BEVERLY Laz :1955???Age:69 Y???Sex:Male Address:[address] [place] [address] * true * Date:? Generated for Carlitos crane/Jan/eTransmitting on:?03/08/2025 03:19 PM EDT
--- OUTSIDE RECORDS SUMMARY | 2025-03-08 15:20 | XMS_ITS | Data Portability ---
Author Organization [place] [facility] Address [address] [place] [address] Care Team Providers Care Light Truck Driver Name Role Phone WILLIAM FRANCOIS Primary Care Provider Assessment Encounter Date Assessment Date Assessment LastModified by Organization Details LastModified Time 08/07/2023 08/07/2023 Time On Scene with Patient: 00:45:06 [email or web address] Not available 08/07/2023 09:43:06 08/07/2023 08/07/2023 Brief Overview: 67 y/o male c/o cough now x 1 month since he release from [facility] on 07/07. he was admitted for aspiration [...] care of this patient according to [facility]'s infection prevention protocols. [email or web address] Not available 08/07/2023 09:53:47 Plan of Treatment Reminders Order Date Submit Date Provider Last Modified By Organization Details Last Modified Time Details Appointments None recorded. Lab None recorded. Referral None recorded. Procedures None recorded. Surgeries None recorded. Imaging XR, chest, 2 view - hx aspiration pneumonia in June 242022 023 [facility] Corporate Office ([employer]), [address], [place], [address], 14:04:05 Medication Orders None recorded. Patient TargetsNo targets recorded. Patient Instructions Encounter Date Encounter Id Patient Instructions Last Modified By Organization Details Last Modified Time 08/07/2023 [id number] Inhaler Instructions Before use, you need to [...] after cleaning actually helps it work better. [email or web address] Not available 08/07/2023 09:29:49 Reason for Referral [...] GAMBLE M.D. 023 3:35:2 0 PM EDT. [email or web address] [facility] [address] [facility] [address], [place], [address], 08/08/2023 12:17:49 Result Notes None recorded. Procedures Surgical History Date Name Laterality Status Provider Name and Address Organization Details Recorded Time Cholecystectomy completed MICHELE Petersone, [place], [address], [place] [facility] 08/07/2023 09:11:13 Hernia Repair completed MICHELE Peterson [address], [place], [address], [place] [facility] 08/07/2023 09:11:21 operative procedure on knee completed MICHELE Peterson [address], [place], [address], [place] [facility] 08/07/2023 09:11:29 total replacement of hip completed MICHELE Peterson [address], [place], [address], [place] [facility] 08/07/2023 09:11:40 Imaging Results Imaging Date Name Status LastModified by Organiz ation Details LastModified Time 08/07/2023 XR, chest, 1 view completed [address] [facility] [address], [address], 08/08/2023 12:17:49 Procedure Notes None recorded. Medical Equipment None Reported. Allergies Allergen ID Allergen Name Allergen Category Reaction Reaction Severity Criticality Documentation Date Start Date Code Code System Note Provider Name and Address Organization Details Recorded Time 939058 fentanyl medicatio n Not available Not available Not available 08/07/2023 4337 RxNorm MICHELE Peterson [address] [place], [address], [place] [facility] 09:[facility]:10 Medications Name Sig Start Date [...] /min 128 mm[Hg] 74 mm[Hg] Not Available [facility] 09:11:51 Social History Question Answer Notes LastModified by Organizat ion Details LastModified Time Tobacco Smoking Status Never Smoker MICHELE Peterson [address] [facility] [place], [address], [place] [facility] 08/07/2023 09:10:04 What Is Your Level Of Alcohol Consumption? None [email or web address] Information not available 08/07/2023 Fall Risk: Do You Feel Unsteady When Standing Or Walking? Yes [email or web address] Information not available 08/07/2023 Excessive Alcohol Or Drug Use No Information not available 08/07/2023 Does This Patient Have A PCP? Yes [email or web address] Information not available 08/07/2023 Has The Patient Seen Their PCP In The Past 6 Months? Yes [email or web address] Information not available 08/07/2023 ADL: Do You Need Help With Daily Activities Such As Bathing, Preparing Meals, Dressing, Or Cleaning? Yes (Z74.1) [email or web address] Information not available 08/07/2023 What Is Your Housing Situation Today? I Have Housing [email or web address] Information not available 08/07/2023 Do You Use Any Illicit Or Recreational Drugs? No [email or web address] Information not available 08/07/2023 Sex: Unknown Functional Status None recorded. Mental Status None recorded. Family History Nothing Reported. Medical History Condition Response Diabetes N Coronary Artery Disease N CHF N Parkinson's Disease N Cancer N Stroke N Dementia N Asthma N Hypothyroidism N Depression Y COPD N High Cholesterol Y Rheumatoid Arthritis Y Pulmonary Embolism N Hypertension Y A-fib N Osteoporosis N Kidney Disease N Past Encounters Encounter ID Performer Location Encounter Start Date Encounter Closed Date Diagnosis/Indication Diagnosis SNOMED-CT Code Diagnosis ICD10 Code Diagnosis Note [id number] MICHELE Peterson [facility] [address] [place] [address] 08/07/2023 08:58:44 08/19/2023 22:31:59 Pneumonia 339117384 J18.9 Status of condition: {{Acute* E xacerbatio [...] edema, lethargy, weakness, dizziness, vomiting. Essential hypertension 92937469 I10 Status of condition: {{Acute Ex acerbation [...] sob, weakness, dizziness, HAs, edema, vision changes. [id number] MICHELE Peterson [facility] [address] [place] [place] [address] 08/07/2023 09:00:31 08/10/2023 12:56:52 Health Concerns Section Related Observation LastModified by Organization Detai ls LastModified Time None Recorded Concern Status LastModified by Organization Details LastModified Time None Recorded Advance Directives Directive None Recorded Payers Encounter Date Sequence Insurance Name Policy Number Policy Hernandez Covered Member ID Hernandez Member ID Guarantor Name 08/07/2023 1 MEDICARE B-PA: [facility] Samanta Barros [id number] Samanta Barros 08/07/2023 2 MEDICAID-PA: [facility] Samanta Barros [id number] Samanta Barros 08/07/2023 1 MEDICARE B-PA: [facility] Samanta V [place] [id number] Samanta Barros 08/07/2023 2 MEDICAID-PA: [facility] Samanta Barros [id number] Samanta Barros Notes Date Note Type Note Provider Name and Address Organization Details Recorded Time 08/07/2023 text/html 67 y/o male new to and provider with hx of depression, HTN, hyperlipidemia, RA, Epilepsy, left hemiplegia, hand tremors, alcohol abuse, GERD, BPH, Bipolar, chronic pain, glaucoma, urinary retention, hx of traumatic subdural hemorrhage. pt was admitted to [facility] on 06/30-07/07 with dx of aspiration, pneumonia, [...] needed it. MICHELE Peterson [address], [place], [address], [place] [facility] 08/07/2023 09:59:26 08/07/2023 text/html duplicate chart, see other note from 08/07/23. MICHELE Peterson [address], [place], [address], [place] [facility] 08/07/2023 10:01:52
== END 2025-03-08 13:00 | disposition home or self-care (01) ==
LOC: HO.US 12:59
PROVIDERS: PCP Internal Medicine; Visit Provider Physician Assistant Medical
DX: N50.811 Right testicular pain (principal)
CPT/HCPCS: 76870

== ENCOUNTER → 2025-03-08 13:17 | Outpatient (BNV) | payer MEDICARE, MEDICAID, SELFPAY | PROVIDERS: PCP Internal Medicine; Visit Provider Radiology Diagnostic Radiology | DX: N50.819 Testicular pain, unspecified (principal); N50.3 Cyst of epididymis; N43.3 Hydrocele, unspecified | CPT/HCPCS: 76870; 93975 ==

== ENCOUNTER → 2025-03-09 11:56 | Outpatient (BNVA) | payer MEDICARE, MEDICAID, SELFPAY | PROVIDERS: PCP Internal Medicine; Visit Provider Internal Medicine Gastroenterology ==

== ENCOUNTER 2025-03-21 09:59 | Outpatient (REF) | payer MEDICARE, MEDICAID, SELFPAY ==
--- NOTE | 2025-03-21 10:51 | MHC.AU.HA3 ---
Hearing Instrument Follow-Up- Binaural Date of Visit: 03/21/25 Right Ear: Make, Model, Color, Serial Number: [id number] Left Ear: Make, Model, Color, Serial Number: Rabia Bentley P [address] O SN: [id number] is replacing [id number] Color: [place] Yarn Inspector Repair Warranty: 10/20/2025 Yarn Inspector Loss and Damage Warranty: 10/20/2025 [facility] Service Plan: exp Battery Size: 312 Type of Wax Guard: CeruStop Dispensed By: [facility] Date of Fittin08/05/2022 Follow-Up Summary: Seen for evaluation. Reported that hearing seems worse left ear. Found wax guard occluded. Cleaned aid, replaced wax guard, ran through dehumidifier. Listening check positive. Samanta raised concern that batteries were lasting 3-4 days instead of 5. Advised some packs of batteries may vary, return if battery drain concerns persist. Recommendations: Recommendations: Hearing instrument follow-up or maintenance as needed. Diagnosis Code(s): Primary Diagnosis: H90.A32 Mixed HL, Unilateral, Left Ear, W/Restricted Contralateral Secondary Diagnosis: H90.A21 SNHL, Unilateral Right Ear, W/Restricted Contralateral Hearing Signature: Provider: Masha Fairbanks, [facility]
--- OUTSIDE RECORDS SUMMARY | 2025-03-21 11:21 | XMS_ITS ---
Author Organization [facility] Address [address] [place] [address] Care Team Providers Care Veterinary Bacteriologist Name Role Phone Wilmer Enciso MD Primary Care Provider Unavail Corbin Shore Unavailable [phone] REASON FOR VISIT colonoscopy Encounters Encounter Location Date Provider Diagnosis [facility] [address] [place] [address] 09/06/2024 Corbin Swanson Plan Of Treatment No Information Progress Notes * BEVERLY CABRERA VDOB:[birth year] (69 yo M)Acc No.[id number]:09/06/2024 Patient:?BEVERLY CABRERA Laz :1955???Age:69 Y???Sex:Male Address:[address] [place] [address] * true * Date:? Generated for Brendai rosa maria/Jan/eTransmitting on:?03/21/2025 11:21 AM EDT
--- OUTSIDE RECORDS SUMMARY | 2025-03-21 11:22 | XMS_ITS | Patient Health Record ---
Author Organization [facility] Address [address] [place] [address] Care Team Providers Care Waitstaff Captain Name Role Phone Wilmer Enciso MD Primary Care Provider Unavail able Corbin Swanson Unavailable [phone] Allergies Allergen (clinical drug ingredient) Drug/Non Drug [...] Orall y twice a day Active Nystatin 266113 UNIT/ML 4 mL Mouth/Throa t Four times [...] day(s) Active Hydrocortisone 1 % 1 application Auto Service Advisor ally Once a day Active Ibuprofen 800 MG 1 tablet with food o r milk as needed Orally every 8 hrs Active Guaifenesin DM Cough & Chest Active Bisacodyl Laxative 10 MG 1 suppository a s needed Rectal Once a day for 30 day(s) Active Anusol-HC 2.5 % 1 application Auto Service Advisor ally Twice a day Active Artificial Tear [...] Problem Status W/U Status Risk Notes Problem [id number] Encounter for screening for malignant neoplasm of colon (Z12.11) Active confirmed Problem 714390146 History of adenomatous polyp of colon (Z86.010) Active confirmed Problem 755451432 Alcoholic cirrho sis of liver without ascites (K70.30) Active confirmed Problem 933477448 Gastroesophageal reflux disease without esophagitis (K21.9) Active confirmed Problem 29365811 Alcoholic liver disease (K70.9) Active confirmed Problem 22585145 Constipation, unspecified constipation type (K59.00) Active confirmed Problem Acute gastroenteritis (72422331) Acute gastroenteritis (K52.9) Active confirmed Vital Signs Blood pressure diastolic 00 mm Hg 08/25/2024 Height 74 in 08/25/2024 Blood pressure systolic 00 mm Hg 08/25/2024 Weight 230 lbs 08/25/2024 BMI 29.53 kg/m2 08/25/2024 Encounters Encounter Location Date Provider Diagnosis [facility] [address] [place] [address] 08/25/2024 Corbin Swanson Acute gastroenteriti s K52.9 ; Alcoholic liver disease K70.9 ; Alcoholic cirrhosis of liver without ascites K70.30 and Constipation, unspecified constipation type K59.00 [facility] [address] [place] [address] 06/24/2024 Corbin Swanson [facility] [address] [place] [address] 07/27/2024 Corbin Swanson [facility] [address] [place] [address] 08/23/2024 Corbin Swanson [facility] [address] [place] [address] 09/06/2024 Corbin Swanson [facility] [address] [place] [phone] 10/18/2024 Corbin Swanson Assessments Encounter Date Diagnosis [...] w DIFF 05/18/2018 PROTHROMBIN TIME (PT, INR) 05/18/2018 PROTHROMBIN TIME (PT, INR) 02/25/2022 PROTHROMBIN TIME (PT, INR) 10/04/2020 ALPHA-FETOPROTEIN,TUMOR MARKER 0 ALPHA-FETOPROTEIN,TUMOR MARKER 8 ALPHA-FETOPROTEIN,TUMOR MARKER 2 US ABD 02/25/2022 US ABD 10/04/2020 US abdomen complete 03/07/2022 Insurance Providers Payer Name Payer Address Payer Phone Subscriber Number Group Number Insured Name Patient Relationship to Insured Coverage Start Date Coverage End Date MEDICARE OF [facility] [address] [place] [address] [id number] SAMANTA CABRERA Self - patient is the insured MEDICAID OF [facility] [address] [place] [phone] [id number] SAMANTA CABRERA Self - patient is the insured Medical (General) History Medical History History ICD Code Urinary incontinence Hypertension Denies AR,DM,CVA,Lung disease,renal dise ase Alcohol-induced cirrhosis--n eg. CT of liver in 09/2019 at [facility]--no ascites, no masses---mild splenomgealy, positive varices [...] Ac's esophagus Colonoscopies--2014 and 2016 at the [facility]--the 2014 exam was suboptimal due to poor bowel prep; the 2017 exam revealed a small tubular adenoma and small serrated adenoma EGD in 2016 at the [facility] was negative for varices nor significant esophagitis--gastric biopsies were negative for H. pylori Chronic constipation Ischemic colitis in 2021. He had a Flex sig with Dr. Steiner Surgical History Surgery Date(Month/Year) Craniotomy x2 for subdurals 2006 Cholecystectomy 2011 Hernia repair age 4 Umbilical hernia repair 01/12/2020
--- OUTSIDE RECORDS SUMMARY | 2025-03-21 11:22 | XMS_ITS ---
Author Organization [facility] Address [address] [place] [address] Care Team Providers Care Rn Embedded Name Role Phone Wilmer Enciso MD Primary Care Provider Unavail able Corbin Swanson Unavailable [phone] Allergies Allergen (clinical drug ingredient) Drug/Non Drug [...] day(s) Active Hydrocortisone 1 % 1 application Wire Coating Machine Operator ally Once a day Active Ibuprofen [...] day(s) Active Anusol-HC 2.5 % 1 application Wire Coating Machine Operator ally Twice a day Active Artificial Tear Solution - as directed Ophthalmic Active Magnesium Hydroxide 2400 MG/10ML 5 mL Orally Twice a day for 30 day(s) Active Nystatin 799843 UNIT/ML 4 mL Mouth/Throa t Four times [...] W/U Status Risk Notes Problem Acute gastroenteritis (71261566) Acute gastroenteritis (K52.9) Active confirmed Vital Signs Blood pressure systolic 00 mm Hg 08/25/20 24 Blood pressure diastolic 00 mm Hg 024 Height 74 in 08/25/2024 Weight 230 lbs 08/25/2024 BMI 29.53 kg/m2 08/25/2024 Encounters Encounter Location Date Provider [facility] [address] [facility] [address] [place] [address] 08/25/2024 Corbin Swanson Acute gastroenteriti s K52.9 ; Alcoholic liver disease K70.9 ; Alcoholic cirrhosis of liver without ascites K70.30 and Constipation, unspecified constipation type K59.00 Assessments Encounter Date Diagnosis (ICD Code) Assessment Notes Treatment Notes Treatment Clinical Notes Section Notes 08/25/2024 Acute gastroenteritis (ICD-10 - K52.9) Continue Zofran as needed We will get copies of the [facility] ER visit in 07/2024 Overall, Donaldos recent [...] needed We will get copies of the [facility] ER visit in 07/2024 Next Appt Details Follow Up: prn, Reason: Progress Notes * SAMANTA CABRERA VDOB:[birth year] (69 yo M)Acc No.[id number]:08/25/2024 Progress Notes Patient:?SAMANTA CABRERA V Provider:?Corbin Swanson MD :1955???Age:69 Y???Sex:Male Deangelo e:08/25/2024 Address:[address] [place], [place] [phone] Pcp:Wilmer Enciso MD Subjective: * Chief Complaints: [...] bowel movements. He describes being seen at [facility] ER about 3 weeks ago. He describes [...] use of antibiotics, ill contacts at his correction, or travel. * ROS:?General/Constitutional:?Change in appetite?denies, denies.?Chills?denies, [...] an empty stomach Orally Once a dayNystatin 873078 UNIT/ML Suspension 4 mL Mouth/Throat Four times [...] empty stomach Orally Once a dayTaking Nystatin 439897 UNIT/ML Suspension 4 mL Mouth/Throat Four times [...] Codes:?G9711 PT W/ DX PAST HX TOTAL COLECTOMY/[id number] TOBACCO NON- [id number] BP SCR NOT PRFRM REC REASON NOS [...] MD Date:? 024 Generated for Carlitos crane/Jan/Crescencio on:?03/21/2025 11:22 AM EDT History and Physical Notes * HPI [...] bowel movements. He describes being seen at [facility] ER about 3 weeks ago. He describes [...] use of antibiotics, ill contacts at his correction, or travel. Examination Category Sub-Category Detail Notes [...]
--- OUTSIDE RECORDS SUMMARY | 2025-03-21 11:22 | XMS_ITS ---
Author Organization [facility] Address [address] [place] [address] Care Team Providers Care Senior Instructor Name Role Phone Wilmer Enciso MD Primary Care Provider Unavail Corbin Shore Unavailable [phone] REASON FOR VISIT Would like to schedule a colon Encounters Encounter Location Date Provider Diagnosis [facility] [address] [place] [address] 10/18/2024 Corbin Swanson Plan Of Treatment No Information Progress Notes * BEVERLY CABRERA VDOB:[birth year] (69 yo M)Acc No.[id number]:10/18/2024 Patient:?RICK BEVERLY Laz :1955???Age:69 Y???Sex:Male Address:[address] [place] [address] * true * Date:? Generated for Carlitos crane/Jan/eTransmitting on:?03/21/2025 11:21 AM EDT
--- OUTSIDE RECORDS SUMMARY | 2025-03-21 11:22 | XMS_ITS | Clinical Summary ---
Author Organization [address] [facility] Address [address] [place] [address] Phone Care Team Providers Care Ethics Instructor Name Role Phone Francie Keith NP Primary [...] (LIDODERM) 5 % patchIndicatio ns:Alcoholic peripheral neuropathy ([facility] V24) Apply 1 patch topically 1 (one) time each day. Remove & discard patch within 12 hours or as directed by MD. Apply to toes as night as needed for pain 30 each 2 5 025 Active Problems Problem Noted Date Diagnosed Date Idiopathic peripheral neuropathy 09/27/2024 BPH without obstruction/lower urinary tract symp toms 09/27/2024 HTN (hypertension) 09/27/2024 Hyperlipidemia 09/27/2024 Traumatic brain injury ([facility] V24, [facility] V28 ) 09/27/2024 Alcoholic cirrhosis ([facility] V24, [facility] V28) 1 11/27/2023 Thoracic spine pain 09/27/2024 Secondary parkinsonism ([facility] V24, [facility] V28 ) 09/27/2024 Social History Tobacco Use Types Packs/Day Years [...] PM EDT Office Visit [facility] [place] [address] [phone] Jack Cuevas, [place] [address] [address] Health Maintenance Due Date Last Done Comments [...] Insurance MEDICARE MEDICAID - [place] Care Teams Ethics Instructor Relationship Specialty Start Date End Date Francie Keith NP [address] [place] [phone] [facility] - General 05/27/23
== END 2025-03-21 10:00 | disposition home or self-care (01) ==
LOC: HO.SH 09:59
PROVIDERS: Visit Provider Physician Assistant Medical
DX: H91.93 Unspecified hearing loss, bilateral (principal)
CPT/HCPCS: 92557; 92592; 99499; V5266

== ENCOUNTER 2025-04-04 14:19 | Outpatient (AMB) | payer MEDICARE, MEDICAID, SELFPAY ==
[2025-04-04 14:20] VITALS: BP 126/80; PULSE 64; O2SAT 93
--- NOTE | 2025-04-04 14:20 | MHC.OFFVIS ---
Vital Signs 04/04/25 14:20 Height 6 ft 2 in BMI Reason not done Patient refused/unable BP 126/80 Blood Pressure Location Rt brachial Position Sitting Pulse 64 Pulse Source Pulse Oximeter Pulse Oximetry (%) 93 Oxygen Delivery Method Room Air Intake Visit Reasons: SOB, Chronic Cough Allergies fentanyl [FENTANYL] Allergy (Intermediate, Verified 04/04/25 14:27) unknown HPI HPI SOB, Chronic Cough: Details: Samanta is a pleasant 69 year male, never smoker, with underlying TBI with cognitive and neurobehavioral dysfunction, seizure disorder, TIA, subdural hematoma, depression, hypertension, anxiety, alcohol use disorder. He was initially referred by PCP for pulmonary evaluation for chronic cough. He is wheelchair bound and resides at a residential, accompanied by staff member who is in waiting room. He previously reported productive cough since Thanksgiving with associated chest congestion, and dyspnea with minimal exertion. He denies fevers or chills. At the last visit, he was treated with Augmentin and reports complete resolution of symptoms. He also had chest CT 02/2025 which was unremarkable. We previously discussed likelihood of dysphagia contributing to cough however he denies any symptoms with eating/drinking. He reports eating small meals, slowly and aware of prior MBSS revealing laryngeal penetration on several occasions but no laryngeal aspiration as well as mild retention of solid food which cleared with subsequent oral administration of water or thin barium. It was recommended by speech therapist recommended chopped diet, pills in puree as well as no straws however he continues to be following a regular diet since MBSS. 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 Cataracts, bilateral Glaucoma Major depression, recurrent, chronic Sinusitis Aggressive behavior Alcohol use disorder, moderate, dependence TBI (traumatic brain injury) Anxiety TIA (transient ischemic attack) Hypertension Alcohol abuse Subdural hematoma Seizure disorder Depression 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, recurrent severe without psychotic features Major depressive disorder, recurrent HTN (hypertension) Hernia Surgical History History of cholecystectomy H/O craniotomy H/O umbilical hernia repair History of hip replacement S/P cholecystectomy H/O brain surgery Family History Other Family history unobtainable Social History Household Members: None Household Members Other:: resides in residential Housing: Snf Housing Other:: resides in residential Are you a primary foster care case manager to a significant other at home: No Do you presently have visiting nurse or other home services: Yes (residential staff) Alcohol intake: never Comment: wears shoes Patient Tobacco Use Status: Never used Tobacco e-Cigarette/Vaping Use: Never Used Second Hand Smoke Exposure: No Advance Directives Date on File: 05/27/19 service: No Current occupational status: disabled Sexual orientation: Straight/Heterosexual Review of Systems Const Denies chills, Denies excessive sweating, Denies fever(s), Denies headache(s) and Denies night sweats Eyes Denies dry eyes, Denies irritation and Denies itchy eyes ENT Reports Normal hearing present, Denies headache(s), Denies nasal congestion, Denies nasal discharge, Denies post nasal drip and Denies sore throat Card Denies chest pain, Denies chest pain at rest, Denies chest pain with activity, Denies claudication, Denies leg edema, Denies dyspnea on exertion, Denies orthopnea and Denies paroxysmal nocturnal dyspnea Resp Denies chest congestion, Denies cough, Denies hemoptysis, Denies pain on inspiration, Denies pain with cough, Denies dyspnea on exertion, Denies stridor and Denies wheezing Musc Denies myalgias Neuro Reports Normal hearing present and Denies headache(s) Endo Denies excessive sweating Stalin/Lymph Denies lymphadenopathy Aller/Immun Denies itchy eyes, Denies seasonal rhinorrhea and Denies wheezing Physical Exam Vital Signs: Last Vital Signs Pulse 64 04/04/25 14:20 BP 126/80 04/04/25 14:20 Pulse Ox 93 04/04/25 14:20 Oxygen Delivery Method Room Air 04/04/25 14:20 Const General: no acute distress Nutritional Appearance: overweight Orientation/consciousness: patient oriented x3 Limitations: wheelchair HEENT Head: Yes normal to inspection Ears: hearing grossly normal bilaterally Eyes Sclerae: sclerae normal Neck Neck: Yes normal visual inspection Lymphatic: no lymphadenopathy noted Chest Chest palpation & inspection: normal inspection of the chest Resp Effort & Inspection: normal respiratory effort, able to speak in complete sentences, no audible wheezes, no stridor, not tachypneic, no tripod positioning and no use of accessory muscles Auscultation: clear to auscultation bilaterally Cardio Jugular venous distension: no JVD Rate: regular rate Rhythm: regular rhythm Skin Other: warm, dry General skin exam: no rashes or lesions noted Neuro General: patient oriented x3, gait normal and moves all extremities Cranial nerves: Yes Normal hearing present Cognition (Neuro): normal cognition Extrem General: Yes normal to inspection, Yes capillary refill normal, Yes no clubbing, cyanosis or edema and Yes no pedal edema Psych Appearance: grossly normal Mental Status: mental status grossly normal Speech and movement: Normal speech and movement present and Slowed speech present (Psych) Attitude: cooperative Thought process: Normal thought process present Thought content: Normal thought content present Insight: Good insight present (Psych) Judgement: Good judgement present (Psych) Assessment & Plan Assessment & Plan (1) Cough: Code(s): R05.9 - Cough, unspecified Category: Medical (2) Dysphagia: Code(s): R13.10 - Dysphagia, unspecified Category: Medical (3) History of traumatic brain injury: Code(s): Z87.820 - Personal history of traumatic brain injury Category: Medical Plan Donaldos symptoms are likely related to aspiration secondary to dysphagia, aware of recommendations from prior MBSS however continues to follow regular diet. At this time, he feels respiratory symptoms are controlled. Encouraged deep breathing and use of incentive spirometer, will attempt to have one sent from [facility]. If unable will see if office can provide one from [facility] office. Will consider repeat MBSS, prior 2022. Discussed importance of following previously recommended diet changes to avoid recurrent aspiration. All questions were answered and patient is in agreement of plan. Will follow up in 3-6 months or sooner if needed. Coding Level of Care Code Est Pt Level 4 (81357) Diagnoses Cough R05.9 Dysphagia R13.10 History of traumatic brain injury Z87.820
--- OUTSIDE RECORDS SUMMARY | 2025-04-04 15:46 | XMS_ITS | Clinical Summary ---
Author Organization [address] [facility] Address [address] [place] [address] Phone Care Team Providers Care Cognos Consultant Name Role Phone Francie Keith NP Primary [...] (LIDODERM) 5 % patchIndicatio ns:Alcoholic peripheral neuropathy ([facility] V24) Apply 1 patch topically [...] (hypertension) 09/27/2024 Hyperlipidemia 09/27/2024 Traumatic brain injury ([facility] V24, [facility] V28 ) 09/27/2024 Alcoholic cirrhosis ([facility]/HCC V24, [facility] V28) 1 11/27/2023 Thoracic spine pain 09/27/2024 Secondary parkinsonism ([facility] V24, [facility]/HCC V28 ) 09/27/2024 Encounters Date Type Department Care Team Description 03/29/2025 2:30 PM EDT Office Visit Orthopedic Surgery - [address] [address] Jack Cuevas, DPM Bilateral femoral artery stenosis ([facility] V24) (Primary Dx); Paralyzed hemidiaphragm; Alcoholic peripheral neuropathy ([facility] V24); Acquired hammer toe of right foot; Primary osteoarthritis of both feet; Pain in toe of right foot; Dermatophytosis of nail; Pain in toe of left foot from Last 3 Months Social History [...] - - Weight 104 kg (230 lb) 03/29/2025 2:47 PM EDT Height 182.9 cm (6' 0.01 ) 03/29/2025 2:47 PM ED T Body Mass Index 31.19 03/29/2025 2:47 PM EDT Plan of Treatment Upcoming Encounters Date Type Department Care Team (Late st Contact Info) Description 07/04/2025 10:00 AM EDT Office Visit Orthopedic Surgery - [place] [address] [address] Jack Cuevas, DPM [address] [address] Health Maintenance Due Date Last Done Comments [...] Insurance MEDICARE MEDICAID - [place] Care Teams Cognos Consultant Relationship Specialty Start Date End Date Francie Keith NP [address] [place] [phone] PCP - General 05/27/23
--- OUTSIDE RECORDS SUMMARY | 2025-04-04 15:46 | XMS_ITS | Patient Health Record ---
Author Organization [facility] Address [address] [place] [address] Care Team Providers Care Dictating Machine Typist Name Role Phone Wilmer Enciso MD Primary Care Provider Unavail able Corbin Swanson Unavailable [phone] Allergies Allergen (clinical drug ingredient) Drug/Non Drug [...] Orall y twice a day Active Nystatin 997857 UNIT/ML 4 mL Mouth/Throa t Four times [...] day(s) Active Hydrocortisone 1 % 1 application Electronic Instrument Trades Worker ally Once a day Active Ibuprofen 800 MG 1 tablet with food o r milk as needed Orally every 8 hrs Active Guaifenesin DM Cough & Chest Active Bisacodyl Laxative 10 MG 1 suppository a s needed Rectal Once a day for 30 day(s) Active Anusol-HC 2.5 % 1 application Electronic Instrument Trades Worker ally Twice a day Active Artificial Tear [...] Problem Status W/U Status Risk Notes Problem 106108467 Encounter for screening for malignant neoplasm of colon (Z12.11) Active confirmed Problem 490130683 History of adenomatous polyp of colon (Z86.010) Active confirmed Problem 927318662 Alcoholic cirrho sis of liver without ascites (K70.30) Active confirmed Problem 945890888 Gastroesophageal reflux disease without esophagitis (K21.9) Active confirmed Problem 82642833 Alcoholic liver disease (K70.9) Active confirmed Problem 10330608 Constipation, unspecified constipation type (K59.00) Active confirmed Problem Acute gastroenteritis (41888031) Acute gastroenteritis (K52.9) Active confirmed Vital Signs Blood pressure diastolic 00 mm Hg 08/25/2024 Height 74 in 08/25/2024 Blood pressure systolic 00 mm Hg 08/25/2024 Weight 230 lbs 08/25/2024 BMI 29.53 kg/m2 08/25/2024 Encounters Encounter Location Date Provider Diagnosis [facility] [address] [place] [phone] 08/25/2024 Corbin Swanson Acute gastroenteriti s K52.9 ; Alcoholic liver disease K70.9 ; Alcoholic cirrhosis of liver without ascites K70.30 and Constipation, unspecified constipation type K59.00 [facility] [address] [place] [phone] 06/24/2024 Corbin Swanson [facility] [address] [place] [phone] 07/27/2024 Corbin Swanson [facility] [address] [place] [phone] 08/23/2024 Corbin Swanson [facility] [address] [place] [phone] 09/06/2024 Corbin Swanson [facility] [address] [place] [phone] 10/18/2024 Corbin Swanson Assessments Encounter Date Diagnosis [...] Date Coverage End Date MEDICARE OF [facility] [address] [place] [address] [id number] SAMANTA CABRERA Self - patient is the insured MEDICAID OF [facility] [address] [place] [address] [id number] SAMANTA CABRERA Self - patient is the insured Medical (General) History Medical History History ICD Code Urinary incontinence Hypertension Denies SD,DM,CVA,Lung disease,renal dise ase Alcohol-induced cirrhosis--n eg. CT of liver in 09/2019 at [facility]--no ascites, no masses---mild splenomgealy, positive varices Trouble walking due to trent ce issues in relation to his subdural hematomas and craniotomies Depression--at [facility] for 2 months 11/2021 to 01/2022; then to rehab until early February GERD/esophagitis--GI bleedin g admission at [facility]---upper endoscopy in 2006 revealed erosive esophagitis and esophageal ulcers while he was actively drinking; a followup endoscopy in 2008 revealed complete healing and no sign of Ac's esophagus Colonoscopies--2014 and 2016 at the [facility]--the 2014 exam was suboptimal due to poor bowel prep; the 2017 exam revealed a small tubular adenoma and small serrated adenoma EGD in 2016 at the [facility] was negative for varices nor significant esophagitis--gastric biopsies were negative for H. pylori Chronic constipation Ischemic colitis in 2021. He had a Flex sig with Dr. Steiner Surgical History Surgery Date(Month/Year) Craniotomy x2 for subdurals 2006 Cholecystectomy 2011 Hernia repair age 4 Umbilical hernia repair 01/12/2020
--- OUTSIDE RECORDS SUMMARY | 2025-04-04 15:46 | XMS_ITS ---
Author Organization [facility] Address [address] [place] [address] Care Team Providers Care Marble Machine Tender Name Role Phone Wilmer Enciso MD Primary Care Provider Unavail able Corbin Swanson Unavailable [phone] Allergies Allergen (clinical drug ingredient) Drug/Non Drug [...] day(s) Active Hydrocortisone 1 % 1 application Pharmacy Cashier ally Once a day Active Ibuprofen 800 [...] day(s) Active Anusol-HC 2.5 % 1 application Pharmacy Cashier ally Twice a day Active Artificial Tear Solution - as directed Ophthalmic Active Magnesium Hydroxide 2400 MG/10ML 5 mL Orally Twice a day for 30 day(s) Active Nystatin 129528 UNIT/ML 4 mL Mouth/Throa t Four times [...] W/U Status Risk Notes Problem Acute gastroenteritis (43050761) Acute gastroenteritis (K52.9) Active confirmed Vital Signs Blood pressure systolic 00 mm Hg 08/25/20 24 Blood pressure diastolic 00 mm Hg 024 Height 74 in 08/25/2024 Weight 230 lbs 08/25/2024 BMI 29.53 kg/m2 08/25/2024 Encounters Encounter Location Date Provider Diagnosis [facility] [address] [place] [address] 08/25/2024 Corbin Swanson Acute gastroenteriti s K52.9 ; Alcoholic liver disease K70.9 ; Alcoholic cirrhosis of liver without ascites K70.30 and Constipation, unspecified constipation type K59.00 Assessments Encounter Date Diagnosis (ICD Code) Assessment Notes Treatment Notes Treatment Clinical Notes Section Notes 08/25/2024 Acute gastroenteritis (ICD-10 - K52.9) Continue Zofran as needed We will get copies of the [facility] ER visit in 07/2024 Overall, Donaldos recent [...] needed We will get copies of the [facility] ER visit in 07/2024 Next Appt Details Follow Up: prn, Reason: Progress Notes * SAMANTA CABRERA VDOB:[birth year] (69 yo M)Acc No.[id number]:08/25/2024 Progress Notes Patient:?SAMANTA CABRERA V Provider:?Corbin Swanson MD :1955???Age:69 Y???Sex:Male Deangelo e:08/25/2024 Address:[address] [place], [place] [id number] Pcp:Wilmer Enciso MD Subjective: * Chief Complaints: [...] bowel movements. He describes being seen at [facility] ER about 3 weeks ago. [...] use of antibiotics, ill contacts at his nursing home, or travel. * ROS:?General/Constitutional:?Change in appetite?denies, denies.?Chills?denies, [...] an empty stomach Orally Once a dayNystatin 868831 UNIT/ML Suspension 4 mL Mouth/Throat Four times [...] empty stomach Orally Once a dayTaking Nystatin 564664 UNIT/ML Suspension 4 mL Mouth/Throat Four times [...] Codes:?G9711 PT W/ DX PAST HX TOTAL COLECTOMY/[id number] TOBACCO NON- [id number] BP SCR NOT PRFRM REC REASON NOS [...] MD Date:? 024 Generated for Carlitos crane/Jan/Crescencio on:?04/04/2025 03:46 PM EDT History and Physical Notes * [...] bowel movements. He describes being seen at [facility] ER about 3 weeks ago. [...] use of antibiotics, ill contacts at his nursing home, or travel. Examination Category Sub-Category Detail Notes [...]
--- OUTSIDE RECORDS SUMMARY | 2025-04-04 15:46 | XMS_ITS ---
Author Organization [facility] Address [address] [place] [address] Care Team Providers Care Ammonia Box Tender Name Role Phone Wilmer Enciso MD Primary Care Provider Unavail Corbin Shore Unavailable [phone] REASON FOR VISIT colonoscopy Encounters Encounter Location Date Provider Diagnosis [facility] [address] [place] [phone] 09/06/2024 Corbin Swanson Plan Of Treatment No Information Progress Notes * BEVERLY CABRERA VDOB:[birth year] (69 yo M)Acc No.[id number]:09/06/2024 Patient:?BEVERLY CABRERA Laz :1955???Age:69 Y???Sex:Male Address:[address] [place] [address] * true * Date:? Generated for Brendai rosa maria/Jan/eTransmitting on:?04/04/2025 03:46 PM EDT
--- OUTSIDE RECORDS SUMMARY | 2025-04-04 15:47 | XMS_ITS ---
Author Organization [facility] Address [address] [place] [address] Care Team Providers Care Stem Teacher Name Role Phone Wilmer Enciso MD Primary Care Provider Unavail Corbin Shore Unavailable [phone] REASON FOR VISIT Would like to schedule a colon Encounters Encounter Location Date Provider Diagnosis [facility] [address] [place] [address] 10/18/2024 Corbin Swanson Plan Of Treatment No Information Progress Notes * BEVERLY CABRERA VDOB:[birth year] (69 yo M)Acc No.[id number]:10/18/2024 Patient:?RICK BEVERLY Laz :1955???Age:69 Y???Sex:Male Address:[address] [place] [address] * true * Date:? Generated for Carlitos crane/Jan/eTransmitting on:?04/04/2025 03:46 PM EDT
== END 2025-04-04 14:58 | disposition home or self-care (01) ==
LOC: HO.HPSW 14:19
PROVIDERS: PCP Internal Medicine; Visit Provider Nurse Practitioner Family
DX: R05.9 Cough, unspecified (principal); R13.10 Dysphagia, unspecified; Z87.820 Personal history of traumatic brain injury
CPT/HCPCS: 99214

== ENCOUNTER → 2025-04-04 14:19 | Outpatient (BNVA) | payer MEDICARE, MEDICAID, SELFPAY | PROVIDERS: PCP Internal Medicine; Visit Provider Nurse Practitioner Family | DX: R05.3 Chronic cough (principal); R13.10 Dysphagia, unspecified; R09.89 Other specified symptoms and signs involving the circulatory and respiratory systems; Z87.820 Personal history of traumatic brain injury; Z99.3 Dependence on wheelchair | CPT/HCPCS: 99212 ==

== ENCOUNTER 2025-04-21 12:48 | Outpatient (AMB) | payer MEDICARE, MEDICAID, SELFPAY ==
--- OUTSIDE RECORDS SUMMARY | 2025-04-21 12:50 | XMS_ITS | Patient Health Record ---
Author Organization [facility] Address [address] [place] [address] Care Team Providers Care Linotyper Name Role Phone Wilmer Enciso MD Primary Care Provider Unavail able Corbin Swanson Unavailable [phone] Allergies Allergen (clinical drug ingredient) Drug/Non Drug [...] Orall y twice a day Active Nystatin 578596 UNIT/ML 4 mL Mouth/Throa t Four times [...] day(s) Active Hydrocortisone 1 % 1 application Chemistry Faculty Member ally Once a day Active Ibuprofen 800 MG 1 tablet with food o r milk as needed Orally every 8 hrs Active Guaifenesin DM Cough & Chest Active Bisacodyl Laxative 10 MG 1 suppository a s needed Rectal Once a day for 30 day(s) Active Anusol-HC 2.5 % 1 application Chemistry Faculty Member ally Twice a day Active Artificial Tear [...] Problem Status W/U Status Risk Notes Problem 587226496 Encounter for screening for malignant neoplasm of colon (Z12.11) Active confirmed Problem 346225438 History of adenomatous polyp of colon (Z86.010) Active confirmed Problem 436500290 Alcoholic cirrho sis of liver without ascites (K70.30) Active confirmed Problem 729968302 Gastroesophageal reflux disease without esophagitis (K21.9) Active confirmed Problem 54860845 Alcoholic liver disease (K70.9) Active confirmed Problem 12283604 Constipation, unspecified constipation type (K59.00) Active confirmed Problem Acute gastroenteritis (71320965) Acute gastroenteritis (K52.9) Active confirmed Vital Signs Blood pressure diastolic 00 mm Hg 08/25/2024 Height 74 in 08/25/2024 Blood pressure systolic 00 mm Hg 08/25/2024 Weight 230 lbs 08/25/2024 BMI 29.53 kg/m2 08/25/2024 Encounters Encounter Location Date Provider Diagnosis [facility] [address] [place] [phone] 08/25/2024 Corbin Swanson Acute gastroenteriti s K52.9 ; Alcoholic liver disease K70.9 ; Alcoholic cirrhosis of liver without ascites K70.30 and Constipation, unspecified constipation type K59.00 [facility] [address] [place] [phone] 06/24/[address] [facility] [address] [place] [phone] 07/27/[address] [facility] [address] [place] [phone] 08/23/[address] [facility] [address] [place] [phone] 09/06/[address] [facility] [address] [place] [phone] 10/18/2024 Corbin Swanson Assessments Encounter Date Diagnosis [...] PROTHROMBIN TIME (PT, INR) 05/18/2018 ALPHA-FETOPROTEIN,TUMOR MARKER 0 ALPHA-FETOPROTEIN,TUMOR MARKER 8 ALPHA-FETOPROTEIN,TUMOR MARKER 2 US ABD 10/04/2020 US ABD 02/25/2022 US abdomen complete 03/07/2022 Insurance Providers Payer Name Payer Address Payer Phone Subscriber Number Group Number Insured Name Patient Relationship to Insured Coverage Start Date Coverage End Date MEDICARE OF [facility] [address] [place] [address] [id number] SAMANTA CABRERA Self - patient is the insured MEDICAID OF [facility] [address] [place] [phone] [id number] SAMANTA CABRERA Self - patient is the insured Medical (General) History Medical History History ICD Code Urinary incontinence Hypertension Denies [place],DM,CVA,Lung disease,renal dise ase Alcohol-induced cirrhosis--n eg. CT of liver in 09/2019 at [facility]--no ascites, no masses---mild splenomgealy, positive varices Trouble walking due to trent ce issues in relation to his subdural hematomas and craniotomies Depression--at [facility] for 2 months 11/2021 to 01/2022; then to rehab until early February GERD/esophagitis--GI bleedin g admission at [facility]---upper endoscopy in 2006 revealed erosive esophagitis and esophageal ulcers while he was actively drinking; a followup endoscopy in 2008 revealed complete healing and no sign of Ac's esophagus Colonoscopies--2014 and 2016 at the [facility]--the 2014 exam was suboptimal due to poor bowel prep; the 2017 exam revealed a small tubular adenoma and small serrated adenoma EGD in 2016 at the [facility] was negative for varices nor significant esophagitis--gastric biopsies were negative for H. pylori Chronic constipation Ischemic colitis in 2021. He had a Flex sig with Dr. Steiner Surgical History Surgery Date(Month/Year) Craniotomy x2 for subdurals 2006 Cholecystectomy 2011 Hernia repair age 4 Umbilical hernia repair 01/12/2020
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
== END 2025-04-21 13:32 | disposition home or self-care (01) ==
LOC: HO.HOP 12:48
PROVIDERS: PCP Internal Medicine; Visit Provider Psychiatry & Neurology Psychiatry
DX: F33.9 Major depressive disorder, recurrent, unspecified (principal); G31.89 Other specified degenerative diseases of nervous system; F09 Unspecified mental disorder due to known physiological condition; S06.9X9S Unspecified intracranial injury with loss of consciousness of unspecified duration, sequela
CPT/HCPCS: 99214

== ENCOUNTER → 2025-04-21 12:48 | Outpatient (BNVA) | payer MEDICARE, MEDICAID, SELFPAY | PROVIDERS: PCP Internal Medicine; Visit Provider Psychiatry & Neurology Psychiatry | DX: F33.9 Major depressive disorder, recurrent, unspecified (principal); G31.89 Other specified degenerative diseases of nervous system; F09 Unspecified mental disorder due to known physiological condition; S06.9X9S Unspecified intracranial injury with loss of consciousness of unspecified duration, sequela | CPT/HCPCS: 99212 ==

== ENCOUNTER 2025-05-15 09:07 | Day surgery (SDC) | payer MEDICARE, MEDICAID, SELFPAY ==
--- OUTSIDE RECORDS SUMMARY | 2025-03-23 08:13 | XMS_ITS | Patient Health Record ---
Author Organization [facility] Address [address] [place] [address] Care Team Providers Care Runstitching Machine Operator Name Role Phone Wilmer Enciso MD Primary Care Provider Unavail able Corbin Swanson Unavailable [phone] Allergies Allergen (clinical drug ingredient) Drug/Non Drug [...] Orall y twice a day Active Nystatin 566036 UNIT/ML 4 mL Mouth/Throa t Four times [...] day(s) Active Hydrocortisone 1 % 1 application Slot Supervisor ally Once a day Active Ibuprofen 800 MG 1 tablet with food o r milk as needed Orally every 8 hrs Active Guaifenesin DM Cough & Chest Active Bisacodyl Laxative 10 MG 1 suppository a s needed Rectal Once a day for 30 day(s) Active Anusol-HC 2.5 % 1 application Slot Supervisor ally Twice a day Active Artificial Tear [...] Problem Status W/U Status Risk Notes Problem 980516638 Encounter for screening for malignant neoplasm of colon (Z12.11) Active confirmed Problem 139764032 History of adenomatous polyp of colon (Z86.010) Active confirmed Problem 100100321 Alcoholic cirrho sis of liver without ascites (K70.30) Active confirmed Problem 631514549 Gastroesophageal reflux disease without esophagitis (K21.9) Active confirmed Problem 15621919 Alcoholic liver disease (K70.9) Active confirmed Problem 71263688 Constipation, unspecified constipation type (K59.00) Active confirmed Problem Acute gastroenteritis (95298164) Acute gastroenteritis (K52.9) Active confirmed Vital Signs Blood pressure diastolic 00 mm Hg 08/25/2024 Height 74 in 08/25/2024 Blood pressure systolic 00 mm Hg 08/25/2024 Weight 230 lbs 08/25/2024 BMI 29.53 kg/m2 08/25/2024 Encounters Encounter Location Date Provider Diagnosis [facility] [address] [place] [phone] 08/25/2024 Corbin Swanson Acute gastroenteriti s K52.9 ; Alcoholic liver disease K70.9 ; Alcoholic cirrhosis of liver without ascites K70.30 and Constipation, unspecified constipation type K59.00 [facility] [address] [place] [phone] 06/24/2024 Corbin Swanson [facility] [address] [place] [phone] 07/27/2024 Corbin Swanson [facility] [address] [place] [phone] 08/23/2024 Corbin Swanson [facility] [address] [place] [phone] 09/06/2024 Corbin Swanson [facility] [address] [place] [phone] 10/18/2024 Corbin Swanson Assessments Encounter Date Diagnosis [...] MARKER 2 ALPHA-FETOPROTEIN,TUMOR MARKER 0 US ABD 10/04/2020 US ABD 02/25/2022 US abdomen complete 03/07/2022 Insurance Providers Payer Name Payer Address Payer Phone Subscriber Number Group Number Insured Name Patient Relationship to Insured Coverage Start Date Coverage End Date [facility] [address] [place] [address] [id number] SAMANTA CABRERA Self - patient is the insured MEDICAID OF [facility] [address] [place] [address] [id number] SAMANTA CABRERA Self - patient is the insured Medical (General) History Medical History History ICD Code Urinary incontinence Hypertension Denies [place],DM,CVA,Lung disease,renal dise ase Alcohol-induced cirrhosis--n eg. CT of liver in 09/2019 at [facility]--no ascites, no masses---mild splenomgealy, positive varices Trouble walking due to trent ce issues in relation to his subdural hematomas and craniotomies Depression--at [facility] for 2 months 11/2021 to 01/2022; then to rehab until early February GERD/esophagitis--GI bleedin g admission at [facility]---upper endoscopy in 2006 revealed erosive esophagitis and esophageal ulcers while he was actively drinking; a followup endoscopy in 2008 revealed complete healing and no sign of Ac's esophagus Colonoscopies--2014 and 2016 at the [facility]--the 2014 exam was suboptimal due to poor bowel prep; the 2017 exam revealed a small tubular adenoma and small serrated adenoma EGD in 2016 at the [facility] was negative for varices nor significant esophagitis--gastric biopsies were negative for H. pylori Chronic constipation Ischemic colitis in 2021. He had a Flex sig with Dr. Steiner Surgical History Surgery Date(Month/Year) Craniotomy x2 for subdurals 2006 Cholecystectomy 2011 Hernia repair age 4 Umbilical hernia repair 01/12/2020
--- OUTSIDE RECORDS SUMMARY | 2025-03-23 08:14 | XMS_ITS ---
Author Organization [facility] Address [address] [place] [phone] Care Team Providers Care Memorandum Statement Clerk Name Role Phone Wilmer Enciso MD Primary Care Provider Unavail able Corbin Swanson Unavailable [phone] Allergies Allergen (clinical drug ingredient) Drug/Non Drug [...] day(s) Active Hydrocortisone 1 % 1 application Financial Health Counselor ally Once a day Active Ibuprofen 800 [...] day(s) Active Anusol-HC 2.5 % 1 application Financial Health Counselor ally Twice a day Active Artificial Tear Solution - as directed Ophthalmic Active Magnesium Hydroxide 2400 MG/10ML 5 mL Orally Twice a day for 30 day(s) Active Nystatin 526305 UNIT/ML 4 mL Mouth/Throa t Four times [...] W/U Status Risk Notes Problem Acute gastroenteritis (18054207) Acute gastroenteritis (K52.9) Active confirmed Vital Signs Blood pressure systolic 00 mm Hg 08/25/20 24 Blood pressure diastolic 00 mm Hg 024 Height 74 in 08/25/2024 Weight 230 lbs 08/25/2024 BMI 29.53 kg/m2 08/25/2024 Encounters Encounter Location Date Provider Diagnosis [facility] [address] [place] [address] 08/25/2024 Corbin Swanson Acute gastroenteriti s K52.9 ; Alcoholic liver disease K70.9 ; Alcoholic cirrhosis of liver without ascites K70.30 and Constipation, unspecified constipation type K59.00 Assessments Encounter Date Diagnosis (ICD Code) Assessment Notes Treatment Notes Treatment Clinical Notes Section Notes 08/25/2024 Acute gastroenteritis (ICD-10 - K52.9) Continue Zofran as needed We will get copies of the [facility] ER visit in 07/2024 Overall, Donaldos [...] needed We will get copies of the [facility] ER visit in 07/2024 Next Appt Details Follow Up: prn, Reason: Progress Notes * SAMANTA CABRERA VDOB:[birth year] (69 yo M)Acc No.[id number]:08/25/2024 Progress Notes Patient:?SAMANTA CABRERA V Provider:?Corbin Swanson MD :1955???Age:69 Y???Sex:Male Deangelo e:08/25/2024 Address:[address] [place], [place] [phone] Pcp:Wilmer Enciso MD Subjective: * Chief Complaints: [...] movements. He describes being seen at [facility] ER about 3 weeks ago. He describes [...] use of antibiotics, ill contacts at his senior living, or travel. * ROS:?General/Constitutional:?Change in appetite?denies, denies.?Chills?denies, [...] an empty stomach Orally Once a dayNystatin 389796 UNIT/ML Suspension 4 mL Mouth/Throat Four times [...] empty stomach Orally Once a dayTaking Nystatin 690073 UNIT/ML Suspension 4 mL Mouth/Throat Four times [...] Codes:?G9711 PT W/ DX PAST HX TOTAL COLECTOMY/FFP4091H TOBACCO NON- [id number] BP SCR NOT PRFRM REC REASON NOS [...] MD Date:? 024 Generated for Carlitos crane/Jan/Crescencio on:?03/23/2025 08:14 AM EDT History and Physical Notes * [...] movements. He describes being seen at [facility] ER about 3 weeks ago. He describes [...] use of antibiotics, ill contacts at his senior living, or travel. Examination Category Sub-Category Detail Notes [...]
--- OUTSIDE RECORDS SUMMARY | 2025-03-23 08:14 | XMS_ITS | Clinical Summary ---
Author Organization [facility] Address [address] [place] [address] Phone Care Team Providers Care Wool Cleaner Name Role Phone Francie Keith NP Primary [...] (LIDODERM) 5 % patchIndicatio ns:Alcoholic peripheral neuropathy ([facility] V24) Apply 1 patch topically [...] (hypertension) 09/27/2024 Hyperlipidemia 09/27/2024 Traumatic brain injury ([facility] V24, [facility] V28 ) 09/27/2024 Alcoholic cirrhosis ([facility] V24, [facility] V28) 1 11/27/2023 Thoracic spine pain 09/27/2024 Secondary parkinsonism ([facility] V24, [facility] V28 ) 09/27/2024 Social History [...] PM EDT Office Visit [facility] [address] [phone] Jack Cuevas, [place]AR[place]TT [address] [address] Health Maintenance Due Date Last Done Comments [...] Insurance MEDICARE MEDICAID - [place] Care Teams Wool Cleaner Relationship Specialty Start Date End Date Francie Keith NP [address] [place] [phone] [facility] - General 05/27/23
--- OUTSIDE RECORDS SUMMARY | 2025-03-23 08:15 | XMS_ITS | Data Portability ---
Author Organization [facility] Address [address] [place] [phone] Care Team Providers Care Woodyard Operator Name Role Phone WILLIAM FRANCOIS Primary Care Provider Assessment Encounter Date Assessment Date Assessment LastModified by Organization Details LastModified Time 08/07/2023 08/07/2023 Time On Scene with Patient: 00:45:06 [email or web address] Not available 08/07/2023 09:43:06 08/07/2023 08/07/2023 Brief Overview: 67 y/o male c/o cough now x 1 month since he release from [facility] on 07/07. he was admitted for aspiration [...] of this patient according to [facility]'s infection prevention protocols. [email or web address] Not available 08/07/2023 09:53:47 Plan of Treatment Reminders Order Date Submit Date Provider Last Modified By Organization Details Last Modified Time Details Appointments None recorded. Lab None recorded. Referral None recorded. Procedures None recorded. Surgeries None recorded. Imaging XR, chest, 2 view - hx aspiration pneumonia in June 242022 023 [facility] ([facility] [employer]), [address] [facility], [place], [address], 14:04:05 Medication Orders None recorded. Patient TargetsNo targets recorded. Patient Instructions Encounter Date Encounter Id Patient Instructions Last Modified By Organization Details Last Modified Time 08/07/2023 [id number] Inhaler Instructions Before use, you need to [...] after cleaning actually helps it work better. [email or web address] Not available 08/07/2023 09:29:49 Reason for Referral [...] GAMBLE M.D. 023 3:35:2 0 PM EDT. [email or web address] [facility] [address] [facility] [address], [place], [address], 08/08/2023 12:17:49 Result Notes None recorded. Procedures Surgical History Date Name Laterality Status Provider Name and Address Organization Details Recorded Time Cholecystectomy completed MICHELE Petersone, [place], [address], [place] [facility] 08/07/2023 09:11:13 Hernia Repair completed MICHELE Peterson [address], [place], [address], [place] [facility] 08/07/2023 09:11:21 operative procedure on knee completed MICHELE Peterson [address], [place], [address], [place] [facility] 08/07/2023 09:11:29 total replacement of hip completed MICHELE Peterson [address], [place], [address], [place] [facility] 08/07/2023 09:11:40 Imaging Results Imaging Date Name Status LastModified by Organiz ation Details LastModified Time 08/07/2023 XR, chest, 1 view completed [address] [facility] [address], [address], 08/08/2023 12:17:49 Procedure Notes None recorded. Medical Equipment None Reported. Allergies Allergen ID Allergen Name Allergen Category Reaction Reaction Severity Criticality Documentation Date Start Date Code Code System Note Provider Name and Address Organization Details Recorded Time 595695 fentanyl medicatio n Not available Not available Not available 08/07/2023 4337 RxNorm MICHELE Peterson [address] [place], [address], [place] [facility] 09:[facility]:10 Medications Name Sig Start [...] /min 128 mm[Hg] 74 mm[Hg] Not Available [facility] 09:11:51 Social History Question Answer Notes LastModified by Organizat ion Details LastModified Time Tobacco Smoking Status Never Smoker MICHELE Peterson [address] [facility] [place], [address], [place] [facility] 08/07/2023 09:10:04 What Is Your Level Of Alcohol Consumption? None Information not available 08/07/2023 Fall Risk: Do You Feel Unsteady When Standing Or Walking? Yes [email or web address] Information not available 08/07/2023 Excessive Alcohol Or Drug Use No Information not available 08/07/2023 Does This Patient Have A PCP? Yes [email or web address] Information not available 08/07/2023 Has The Patient Seen Their PCP In The Past 6 Months? Yes [email or web address] Information not available 08/07/2023 ADL: Do You Need Help With Daily Activities Such As Bathing, Preparing Meals, Dressing, Or Cleaning? Yes (Z74.1) [email or web address] Information not available 08/07/2023 What Is Your Housing Situation Today? I Have Housing [email or web address] Information not available 08/07/2023 Do You Use Any Illicit Or Recreational Drugs? No [email or web address] Information not available 08/07/2023 Sex: Unknown Functional [...] SNOMED-CT Code Diagnosis ICD10 Code Diagnosis Note [id number] MICHELE Peterson [facility] [address] [place] [address] 08/07/2023 08:58:44 08/19/2023 22:31:59 Pneumonia 583112695 J18.9 Status of condition: {{Acute* E xacerbatio [...] edema, lethargy, weakness, dizziness, vomiting. Essential hypertension 14487873 I10 Status of condition: {{Acute Ex acerbation [...] sob, weakness, dizziness, HAs, edema, vision changes. [id number] MICHELE Peterson [facility] [address] [facility] [place] [phone] 08/07/2023 09:00:31 08/10/2023 12:56:52 Health Concerns Section Related Observation LastModified by Organization Detai ls LastModified Time None Recorded Concern Status LastModified by Organization Details LastModified Time None Recorded Advance Directives Directive None Recorded Payers Insurance Date Sequence Insurance Name Policy Number Policy Hernandez Covered Member ID Hernandez Member ID Guarantor Name 08/20/2023 2 [place] [facility] Samanta Barros [id number] Samanta Barros 08/20/2023 1 MEDICARE B-[place]: [facility] [employer] Samanta Barros [id number] Samanta Barros 08/06/2023 1 [place] [facility] Samanta Barros [id number] Samanta Barros 08/06/2023 1 *SELF PAY* Samanta Barros [id number] Samanta Barros Notes Date Note Type Note Provider Name and Address Organization Details Recorded Time 08/07/2023 text/html 67 y/o male new to and provider with hx of depression, HTN, hyperlipidemia, RA, Epilepsy, left hemiplegia, hand tremors, alcohol abuse, GERD, BPH, Bipolar, chronic pain, glaucoma, urinary retention, hx of traumatic subdural hemorrhage. pt was admitted to [facility] on 06/30-07/07 with dx of aspiration, pneumonia, [...] needed it. MICHELE Peterson [address], [place], [address], [place] [facility] 08/07/2023 09:59:26 08/07/2023 text/html duplicate chart, see other note from 08/07/23. MICHELE Peterson [address], [place], [address], [place] [facility] 08/07/2023 10:01:52
--- OUTSIDE RECORDS SUMMARY | 2025-03-23 08:15 | XMS_ITS ---
Author Organization [facility] Address [address] [place] [address] Care Team Providers Care Chinese Instructor Name Role Phone Wilmer Enciso MD Primary Care Provider Unavail Corbin Shore Unavailable [phone] REASON FOR VISIT colonoscopy Encounters Encounter Location Date Provider Diagnosis [facility] [address] [place] [phone] 09/06/2024 Corbin Swanson Plan Of Treatment No Information Progress Notes * BEVERLY CABRERA VDOB:[birth year] (69 yo M)Acc No.[id number]:09/06/2024 Patient:?BEVERLY CABRERA Laz :1955???Age:69 Y???Sex:Male Address:[address] [place] [phone] * true * Date:? Generated for Brendai rosa maria/Jan/eTransmitting on:?03/23/2025 08:15 AM EDT
--- OUTSIDE RECORDS SUMMARY | 2025-03-23 08:16 | XMS_ITS ---
Author Organization [facility] Address [address] [place] [address] Care Team Providers Care Student Success Advisor Name Role Phone Wilmer Enciso MD Primary Care Provider Unavail Corbin Shore Unavailable [phone] REASON FOR VISIT Would like to schedule a colon Encounters Encounter Location Date Provider Diagnosis [facility] [address] [place] [address] 10/18/2024 Corbin Swanson Plan Of Treatment No Information Progress Notes * BEVERLY CABRERA VDOB:[birth year] (69 yo M)Acc No.[id number]:10/18/2024 Patient:?RICK BEVERLY Laz :1955???Age:69 Y???Sex:Male Address:[address] [place] [address] * true * Date:? Generated for Carlitos crane/Jan/eTransmitting on:?03/23/2025 08:16 AM EDT
[2025-05-11 14:34] VITALS: BMI 30.2
--- NOTE | 2025-05-12 09:45 | HO.ANESPROP2 ---
Documented by User: Kirsten Lawrence NP 05/12/25 09:47 HPI - Anesthesia Eval Consult details Narrative: 69yo M for Colonoscopy Fentanyl allergy- unknown allergy custodial resident TBI Hx ETOH PMFSH Active Problems Active Problems: All Active Problems History of traumatic brain injury (Acute) Dysphagia (Acute) Cough (Acute) Chronic constipation (Acute) Epididymitis (Acute) Sialorrhea (Acute) Personality disorder in adult (Acute) Dermatitis, unspecified (Acute) Acute colitis (Acute) Colitis (Acute) Toxic metabolic encephalopathy (Acute) Weakness (Acute) Hypotension (Acute) Lethargy (Acute) BPH (benign prostatic hyperplasia) (Acute) Cataracts, bilateral (Acute) Glaucoma (Acute) Major depression, recurrent, chronic (Acute) Cognitive and neurobehavioral dysfunction following brain injury (Acute) Major depressive disorder, recurrent severe without psychotic features (Acute) HTN (hypertension) (Acute) Past Medical History Medical History (Updated 05/11/25 @ 14:32 by Dona Poe RN) History of electroconvulsive therapy Inflammatory disorders of scrotum Chronic obstructive pulmonary disease, unspecified Secondary parkinsonism, unspecified Hypothyroidism, unspecified Thrombocytopenia, unspecified Acute insomnia Intermittent urinary incontinence BPH (benign prostatic hyperplasia) Resides in [facility] care facility Cataracts, bilateral Glaucoma Major depression, recurrent, chronic Sinusitis Aggressive behavior Alcohol use disorder, moderate, dependence TBI (traumatic brain injury) Anxiety TIA (transient ischemic attack) Hypertension Alcohol abuse Subdural hematoma Seizure disorder Depression 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, recurrent severe without psychotic features Major depressive disorder, recurrent HTN (hypertension) Hernia Family History Family History Other Family history unobtainable Family history of problems with anesthesia: No Surgical History Surgical History (Updated 05/11/25 @ 14:32 by Dona Poe RN) Hx of bilateral cataract extraction History of cholecystectomy H/O craniotomy H/O umbilical hernia repair History of hip replacement S/P cholecystectomy H/O brain surgery History of Problems with Anesthesia: No Social History Social History Household Members: None Household Members Other:: resides in retirement Housing: [facility] Housing Other:: resides in retirement Are you a primary critical care physician to a significant other at home: No Do you presently have visiting nurse or other home services: Yes (retirement staff) Alcohol intake: never Comment: wears shoes Patient Tobacco Use Status: Never used Tobacco e-Cigarette/Vaping Use: Never Used Second Hand Smoke Exposure: No Have you been hit, kicked, punched, or otherwise hurt by someone within the past year? If so, by whom?: No Are you DNR?: No Advance Directives: No Advance Directives Information Provided: Yes Advance Directives Date on File: 05/27/19 service: No Current occupational status: disabled Sexual orientation: Straight/Heterosexual Meds Allergies Allergy/AdvReac Type Severity Reaction Status Date / Time fentanyl (FENTANYL) Allergy Intermediate unknown Verified 04/04/25 14:27 Home Medications ?Medication ?Instructions ?Recorded ?Confirmed ?Last Taken ?Type hydrocortisone 1 % topical cream 1 appl topical BID PRN itchy feet 06/30/23 05/11/25 Unknown History docusate sodium 100 mg capsule 100 mg PO DAILY 02/02/25 05/11/25 Unknown History lidocaine 4 % topical ointment ea topical 02/02/25 04/21/25 Unknown History Exam Height,Weight and Vital Signs: Height 6 ft 2 in Weight 106.594 kg Assessment and Plan Assessment Anesthesia Assessment: Chart Reviewed Final Anesthetic Review Family History of Problems with Anesthesia: No History of Problems with Anesthesia: No Documented by User: Benjamín Munoz MD 05/15/25 10:28 [facility] Past Medical History Medical History (Updated 05/11/25 @ 14:32 by Dona Poe RN) History of electroconvulsive therapy Inflammatory disorders of scrotum Chronic obstructive pulmonary disease, unspecified Secondary parkinsonism, unspecified Hypothyroidism, unspecified Thrombocytopenia, unspecified Acute insomnia Intermittent urinary incontinence BPH (benign prostatic hyperplasia) Resides in [facility] care facility Cataracts, bilateral Glaucoma Major depression, recurrent, chronic Sinusitis Aggressive behavior Alcohol use disorder, moderate, dependence TBI (traumatic brain injury) Anxiety TIA (transient ischemic attack) Hypertension Alcohol abuse Subdural hematoma Seizure disorder Depression 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, recurrent severe without psychotic features Major depressive disorder, recurrent HTN (hypertension) Hernia Functional capacity: bed bound Family History Family History Other Family history unobtainable Surgical History Surgical History (Updated 05/11/25 @ 14:32 by Dona Poe RN) Hx of bilateral cataract extraction History of cholecystectomy H/O craniotomy H/O umbilical hernia repair History of hip replacement S/P cholecystectomy H/O brain surgery Social History Social History Household Members: None Household Members Other:: resides in retirement Housing: Senior [facility] Housing Other:: resides in retirement Are you a primary critical care physician to a significant other at home: No Do you presently have visiting nurse or other home services: Yes (retirement staff) Alcohol intake: never Comment: wears shoes Patient Tobacco Use Status: Never used Tobacco e-Cigarette/Vaping Use: Never Used Second Hand Smoke Exposure: No Have you been hit, kicked, punched, or otherwise hurt by someone within the past year? If so, by whom?: No Are you DNR?: No Advance Directives: No Advance Directives Information Provided: Yes Advance Directives Date on File: 05/27/19 service: No Current occupational status: disabled Sexual orientation: Straight/Heterosexual Meds Allergies Allergy/AdvReac Type Severity Reaction Status Date / Time fentanyl (FENTANYL) Allergy Intermediate unknown Verified 04/04/25 14:27 Home Medications ?Medication ?Instructions ?Recorded ?Confirmed ?Last Taken ?Type hydrocortisone 1 % topical cream 1 appl topical BID PRN itchy feet 06/30/23 05/11/25 Unknown History docusate sodium 100 mg capsule 100 mg PO DAILY 02/02/25 05/11/25 Unknown History lidocaine 4 % topical ointment ea topical 02/02/25 04/21/25 Unknown History Exam Airway Mallampati Class: II TM Dist: >3cm Neck ROM: Full Heart: ok Lungs: ok Assessment and Plan Assessment Anesthesia Assessment: Anesthesia Plan Discussed Final Anesthetic Review NPO: Yes ASA Class: IV Final Preanesthetic Review: No Changes in Pt Med Stat, Meds/Allgs Chart Reviewed, Consent Obtained/Reviewed and Anes Risks/Benef Reviewed Patient Risk: High Procedure Risk: Low Anesthetic Plan Anesthetic Plan: MAC: and Agree w/ Assess. and Plan Disposition: Standard PACU
--- NOTE | 2025-05-15 09:11 | PC.NURSE ---
spoke to nurse taking care patient went over prep results and med given and pt hx
[2025-05-15] MEDS: Lactated Ringers 1,000 ML 100 ML IVCONT (09:35)
[2025-05-15 09:36] VITALS: BP 172/93; PULSE 68; RESP 20; TEMP 36.9; O2SAT 98
--- NOTE | 2025-05-15 09:58 | PC.NURSE ---
pt move all extremities but unable to stand wheelchair bound
--- NOTE | 2025-05-15 10:06 | MHC.SHP ---
Pre-Procedural Eval Section A - 24 Hr Update-Section A only Date of Service: 05/15/25 The patient is an INPATIENT: No The patient has been examined within 24 hours of the surgical procedure. The History & Physical has been completed within 30 days and I have reviewed it.: No Section B - Complete if H&P > 30 days Chief Complaint: Encounter for screening for malignant neoplasm of Relevant Family History (Specify if Yes): No Relevant Social History: None Present Medications: see Short Stay Collaborative assessment Medical History: Significant History (Chronic obstructive pulmonary disease, unspecified Secondary parkinsonism, unspecified Hypothyroidism, unspecified Thrombocytopenia, unspecified Acute insomnia Intermittent urinary incontinence BPH (benign prostatic hyperplasia) Resides in long term acute care registered nurse care facility Cataracts, bilateral Glaucoma Major ) History of Previous Operations: Relevant previous surgery/procedure and date(s) (History of cholecystectomy H/O craniotomy H/O umbilical hernia repair History of hip replacement S/P cholecystectomy H/O brain surgery) Allergies: Allergies Allergy/AdvReac Type Severity Reaction Status Date / Time fentanyl (FENTANYL) Allergy Intermediate unknown Verified 04/04/25 14:27 Review of Systems Sugical H&P ROS: Negative: Constitution, Cardiovascular, Respiratory and Gastrointestinal Exam Surgical H&P Exam: Normal: Heart, Normal: Lungs, Normal: Extremities and Normal: Abdomen Plan Diagnosis/Plan: Unchanged I have reviewed the history and physical and performed a pertinent physical examination on my patient. No changes have occurred unless specified. Time Spent With Patient Time: Total time managing care of this patient today ____ minutes.
--- NOTE | 2025-05-15 12:02 | HO.OPN-COLON ---
Colonoscopy Operative Note Operative Note Date of Service: 05/15/25 Narrative: COLONOSCOPY TILL CECUM WITH BIOPSIES AND SNARE POLYPECTOMY Pre-op diagnosis: Colon cancer screening. Post-op diagnosis:? Colon polyps, Diverticulosis, hemorrhoids Endoscopist:? Jimenez Steiner MD Anesthesia:?MAC Consent: Indications for the procedure and potential complications of bleeding, perforation, reaction to medications and missed diagnosis were discussed with the patient and informed consent was obtained. Instrument: Olympus CF H 190 L variable stiffness adult colonoscope Monitoring: Vital signs and clinical assessment, intermittent blood pressure monitoring, continuous EKG monitoring, Pulse oximetry and Carbon Dioxide monitoring were done throughout the procedure. Please see anesthesia flowsheet. Colon withdrawl time was 30 minutes. Procedure: The patient was placed in the left lateral decubitis position and pre-procedure medications were administered. After a digital rectal examination of the ano-rectum, the video colonoscope was inserted into the rectum and advanced through the colon to the cecum. The colonoscope was slowly withdrawn in a retrograde panoramic fashion and the colon mucosa was carefully examined including a retroflexed view of the rectum. Findings and interventions are described below. Procedure Difficulty: Colon was long and tortuous and there was recurrent loop formation. Patient was placed in the supine position and LLQ pressure was applied to intubate the ascending colon Findings: Terminal Ileum: Not evaluated Cecum: Normal Ascending Colon: A 4-5 mm sessile polyp in the proximal ascending colon - removed with a cold snare. A 15 to 18 mm sessile polyp in the distal ascending colon - removed with a hot snare. Transverse Colon: A 10-12 mm sessile polyp in the proximal transverse colon - removed with a hot snare. Descending Colon: Normal Sigmoid Colon: Two 12 to 15 mm sessile polyps - removed with a hot snare. Moderate diverticulosis Rectum: Normal Ano-rectum: Moderate internal hemorrhoids Colon preparation: Good to Fair despite copious irrigation. [place] Bowel Preparation Scale Right colon; 2 Transverse colon: 1 Left colon; 1 (0 = Unprepared colon segment with mucosa not seen due to solid stool that cannot be cleared. 1 = Portion of mucosa of the colon segment seen, but other areas of the colon segment not well seen due to staining, residual stool and/or opaque liquid. 2 = Minor amount of residual staining, small fragments of stool and/or opaque liquid, but mucosa of colon segment seen well. 3 = Entire mucosa of colon segment seen well with no residual staining, small fragments of stool or opaque liquid) Impression and Post Procedure Diagnosis: Colonoscopy Findings: Five small to medium sized polyps were removed Moderate diverticulosis seen in the sigmoid colon Moderate hemorrhoids on retroflexed exam. Plan: Pt has a FU appointment on 06/08/[address] Steiner Repeat Colonoscopy in 1 year if polyps are adenomatous and due to fair prep. Above findings were reviewed with the patient and relevant handouts were given and the discharge area. BIOPSIES SHOWED: A. Colon, ascending, polypectomies: Fragments of tubular adenomata; negative for high-grade dysplasia or carcinoma. B. Colon, right, biopsy: Melanosis coli; otherwise colonic mucosa within normal limits. C. Colon, transverse, polypectomy: Tubular adenoma; negative for high-grade dysplasia or carcinoma. D. Colon, sigmoid, polypectomy: Fragments of tubular adenoma; negative for high-grade dysplasia or carcinoma Letter sent to the patient with biopsy results. Patient was placed on the colonoscopy recall list for repeat colonoscopy in 1 year.
[2025-05-15 12:08] VITALS: BP 153/76; PULSE 90; RESP 30; TEMP 37.3; O2SAT 95
[2025-05-15 12:27] VITALS: BP 169/80; PULSE 85; RESP 20; TEMP 36.3; O2SAT 98
== END 2025-05-15 13:21 | disposition home or self-care (01) ==
PROVIDERS: PCP Internal Medicine; Visit Provider Internal Medicine Gastroenterology
PROC: 0DJD8ZZ Inspection of Lower Intestinal Tract, Via Natural or Artificial Opening Endoscopic (ICD-10-PCS; CPT 45378; principal; 2025-05-15 10:50)
DX: Z12.11 Encounter for screening for malignant neoplasm of colon (principal); D12.2 Benign neoplasm of ascending colon; D12.3 Benign neoplasm of transverse colon; D12.5 Benign neoplasm of sigmoid colon; K63.89 Other specified diseases of intestine; K57.30 Diverticulosis of large intestine without perforation or abscess without bleeding; K64.8 Other hemorrhoids; R14.0 Abdominal distension (gaseous); K59.09 Other constipation; K52.9 Noninfective gastroenteritis and colitis, unspecified; I10 Essential (primary) hypertension; G40.909 Epilepsy, unspecified, not intractable, without status epilepticus; G21.9 Secondary parkinsonism, unspecified; D69.6 Thrombocytopenia, unspecified; K21.9 Gastro-esophageal reflux disease without esophagitis; J44.9 Chronic obstructive pulmonary disease, unspecified; F33.8 Other recurrent depressive disorders; Z87.820 Personal history of traumatic brain injury; R45.6 Violent behavior; Z79.1 Long term (current) use of non-steroidal anti-inflammatories (NSAID); Z79.899 Other long term (current) drug therapy; Z88.8 Allergy status to other drugs, medicaments and biological substances; Z96.642 Presence of left artificial hip joint; Z98.890 Other specified postprocedural states
CPT/HCPCS: 45385; 45380; 88305; J2003; J2704; J3010

== ENCOUNTER → 2025-05-15 09:07 | Outpatient (BNV) | payer MEDICARE, MEDICAID, SELFPAY | PROVIDERS: PCP Internal Medicine; Visit Provider Internal Medicine Gastroenterology | DX: Z12.11 Encounter for screening for malignant neoplasm of colon (principal); D12.2 Benign neoplasm of ascending colon; D12.3 Benign neoplasm of transverse colon; D12.5 Benign neoplasm of sigmoid colon; K57.30 Diverticulosis of large intestine without perforation or abscess without bleeding; K64.8 Other hemorrhoids | CPT/HCPCS: 45385 ==

== ENCOUNTER 2025-05-22 12:21 | Outpatient (REF) | payer MEDICARE, MEDICAID, SELFPAY ==
--- OUTSIDE RECORDS SUMMARY | 2025-05-22 13:00 | XMS_ITS | Clinical Summary ---
Author Organization [address] [facility] Address [address] [place] [address] Phone Care Team Providers Care Form Maker Plaster Name Role Phone Francie Keith NP Primary [...] Apply 1 Applicator topically daily. - Active Active Problems Problem Noted Date Diagnosed Date Idiopathic peripheral neuropathy 09/27/2024 BPH without obstruction/lower urinary tract symp toms 09/27/2024 HTN (hypertension) 09/27/2024 Hyperlipidemia 09/27/2024 Traumatic brain injury ([facility] V24, CMS/HCC V28 ) 09/27/2024 Alcoholic cirrhosis (CMS/HCC V24, CMS/HCC V28) 1 11/27/2023 Thoracic spine pain 09/27/2024 Secondary parkinsonism (CMS/HCC V24, CMS/HCC V28 ) 09/27/2024 Encounters Date Type Department Care Team Description 03/29/2025 2:30 PM EDT Office Visit Orthopedic Surgery - [address] [place] [id number] Jack Cuevas, DPM Bilateral femoral artery stenosis (CMS/HCC V24) (Primary Dx); Paralyzed hemidiaphragm; Alcoholic peripheral neuropathy (CMS/HCC V24); Acquired hammer toe of right foot; [...] AM EDT Office Visit Orthopedic Surgery - [place] [address] [id number] Jack Cuevas, DPM [address] [id number] Health Maintenance Due Date Last Done Comments [...] Insurance MEDICARE MEDICAID - [place] Care Teams Form Maker Plaster Relationship Specialty Start Date End Date Francie Keith NP [address] [place] [address] [place] [id number] PCP - General 05/27/23
--- OUTSIDE RECORDS SUMMARY | 2025-05-22 13:00 | XMS_ITS | Data Portability ---
Author Organization [place] [facility] Address [address] [place] [phone] Care Team Providers Care Dry Cleaner Apprentice Name Role Phone WILLIAM FRANCOIS Primary Care Provider Assessment Encounter Date Assessment Date Assessment LastModified by Organization Details LastModified Time 08/07/2023 08/07/2023 Time On Scene with Patient: 00:45:06 [email or web address] Not available 08/07/2023 09:43:06 08/07/2023 08/07/2023 Brief Overview: 67 y/o male c/o cough now x 1 month since he release from [facility] on 07/07. he was admitted for [...] after care of this patient according to [facility] infection prevention protocols. Not available 08/07/2023 09:53:47 Plan of Treatment Reminders Order Date Submit Date Provider Last Modified By Organization Details Last Modified Time Details Appointments None recorded. Lab None recorded. Referral None recorded. Procedures None recorded. Surgeries None recorded. Imaging XR, chest, 2 view - hx aspiration pneumonia in June 242022 023 [facility] [place] [address], [place], [address], 14:04:05 Medication Orders None recorded. Patient TargetsNo targets recorded. Patient Instructions Encounter Date Encounter Id Patient Instructions Last Modified By Organization Details Last Modified Time 08/07/2023 [id number] Inhaler Instructions Before use, you need to prime the inhaler: Take the cap off the mouthpiece and put the inhaler in the spacer Shake the inhaler for 5 seconds Hold the inhaler upright with 1 finger on the top of the canister, the thumb on the bottom of the inhaler, and your other hand holding the spacer Express a large breath Close lips around spacer Press down on the canister After you press down on the canister, breathe (or have your child breathe in) deeply and slowly and hold your breath for 10 seconds Take out of your mouth and slowly exhale If you were instructed to take 2 puffs of the inhaler, wait one minute before you give the second puff. Shake the inhaler again before the second puff. If the inhaler is a steroid medicine (also called a glucocorticoid or corticosteroid ), rinse out your mouth, gargle, and spit out the water Cleaning: If you use the inhaler every day, you need to clean it at least once a week. If you use less often, clean the inhaler when you see powder in or around the hole. To clean an inhaler: Remove the canister and cap from the mouthpiece. Do not wash the canister or put the canister under water. Run warm water through the mouthpiece for 30 to 60 seconds Shake the water off of the mouthpiece and let it air dry Clean the spacer every 1-2 weeks. First, remove the inhaler from the spacer. Wash the spacer with warm water and dishwashing soap, but do NOT rinse it. Then let it air dry. Leaving the spacer a little soapy after cleaning actually helps it work better. [email or web address] Not available 08/07/2023 09:29:49 Reason for Referral [...] GAMBLE M.D. 023 3:35:2 0 PM EDT. [email or web address], [place], [address], 08/08/2023 12:17:49 Result Notes Documentation Provider Name and Address Organization Details Recorded Time Xr, Chest, 1 View : XRAY CHEST 1 VIEW FINDINGS: AP erect examination demonstrates no infiltrates. The heart is not enlarged. Normal hilar and mediastinal structures. Vascularity is normal. CONCLUSION: No active disease. No evidence of pneumonia or congestive heart failure. ELECTRONICALLY SIGNED BY ENRICO GAMBLE M.D. 08/07/2023 3:35:20 PM EDT. XRAY CHEST 1 VIEW Results: AP erect examination demonstrates no infiltrates. The heart is not enlarged. Normal hilar and mediastinal structures. Vascularity is normal. Conclusion: No active disease. No evidence of pneumonia or congestive heart failure. Electronically signed by ENRICO GAMBLE M.D. 08/07/2023 3:35:20 PM EDT. Cora Waite NP [address], [place], [address], [place] [facility] 08/08/2023 12:17:49 Procedures Surgical History Date Name Laterality Status Provider Name and Address Organization Details Recorded Time Cholecystectomy completed MICHELE Peterson [address], [place], [address], [place] [facility] 08/07/2023 09:11:13 Hernia Repair completed MICHELE Peterson [address], [place], [address], [place] [facility] 08/07/2023 09:11:21 operative procedure on knee completed MICHELE Peterson [address], [place], [address], [place] [facility] 08/07/2023 09:11:29 total replacement of hip completed MICHELE Peterson [address], [place], [address], [place] [facility] 08/07/2023 09:11:40 Imaging Results None recorded. Procedure Notes None recorded. Medical Equipment None Reported. Allergies Allergen ID Allergen Name Allergen Category Reaction Reaction Severity Criticality Documentation Date Start Date Code Code System Note Provider Name and Address Organization Details Recorded Time 249775 fentanyl medicatio n Not available Not available Not available 08/07/2023 4337 RxNorm MICHELE Peterson [address], [place], [address], [facility] 09:[facility]:10 Medications Name Sig Start Date [...] Body temperature Heart rate Respiratory rate Systolic And Diastolic Provider Name and Address Organization Details Last Updated DateTime 3 97 % 97 % 97.1 [degF] 81 /min 18 /min 128/74 mm[Hg] Not Available [facility] 3 09:11:51 Social History Question Answer Notes LastModified by Organizat ion Details LastModified Time Tobacco Smoking Status Never Smoker MICHELE Peterson [address], [place], [address], [place] [facility] 08/07/2023 09:10:04 Fall Risk: Do You Feel Unsteady When Standing Or Walking? Yes [email or web address] Information not available 08/07/2023 Excessive Alcohol Or Drug Use No [email or web address] Information not available 08/07/2023 Does This Patient Have A PCP? Yes [email or web address] Information not available 08/07/2023 Has The Patient Seen Their PCP In The Past 6 Months? Yes [email or web address] Information not available 08/07/2023 ADL: Do You Need Help With Daily Activities Such As Bathing, Preparing Meals, Dressing, Or Cleaning? Yes (Z74.1) Information not available 08/07/2023 What Is Your Housing Situation Today? I Have Housing Information not available 08/07/2023 Sex: Unknown Functional Status Question Answer Note LastModified by Swivlizat ion Details LastModified Time Do you use any illicit or recreational drugs? No [email or web address] Information not available 08/07/2023 What is your level of alcohol consumption? None [email or web address] Information not available 08/07/2023 Mental Status None recorded. Family History Nothing Reported. Medical History Condition Response Coronary Artery Disease N COPD N Depression Y Hypothyroidism N A-fib N Cancer N Stroke N High Cholesterol Y Rheumatoid Arthritis Y Kidney Disease N Parkinson's Disease N Diabetes N CHF N Dementia N Asthma N Pulmonary Embolism N Hypertension Y Osteoporosis N Past Encounters Encounter ID Performer Location Encounter Start Date Encounter Closed Date Diagnosis/Indication Diagnosis SNOMED-CT Code Diagnosis ICD10 Code Diagnosis Note [id number] MICHELE Peterson [address] [phone] 08/07/2023 08:58:44 08/19/2023 22:31:59 Pneumonia 132582234 J18.9 Status of condition: Acute. Testing/Re sults: follow up CXR pending. Discussion [...] edema, lethargy, weakness, dizziness, vomiting. Essential hypertension 95409151 I10 Status of condition: Chronic. Testing/Re sults: BP 128/74 on scene. Discussion : BP controlled on current regimen. he is asymptomat ic. Plan, Medication Management & Follow-up recommenda tions:foll ow up with pcp next week as scheduled. go to the ER with worsening symptoms cp, sob, weakness, dizziness, HAs, edema, vision changes. [id number] MICHELE Peterson [facility] [address] [facility] [address] 08/07/2023 09:00:31 08/10/2023 12:56:52 Health Concerns Section Related Observation LastModified by Organization Detai ls LastModified Time None Recorded Concern Status LastModified by Organization Details LastModified Time None Recorded Advance Directives Directive None Recorded Payers Insurance Date Sequence Insurance Name Policy Number Policy Hernandez Covered Member ID Hernandez Member ID Guarantor Name 08/20/2023 2 MED[place]ID[place]: [facility] Samanta Barros [id number] Samanta Barros 08/20/2023 1 [place] [employer] Samanta Barros [id number] Samanta Barros 08/06/2023 1 [place] [employer] Samanta Barros [id number] Samanta Barros 08/06/2023 1 *SELF PAY* Samanta Barros [id number] Samanta Barros Notes Date Note Type Note Provider Name and Address Organization Details Recorded Time 08/07/2023 text/html 67 y/o male new to and provider with hx of depression, HTN, hyperlipidemia, RA, Epilepsy, left hemiplegia, hand tremors, alcohol abuse, GERD, BPH, Bipolar, chronic pain, glaucoma, urinary retention, hx of traumatic subdural hemorrhage. pt was admitted to [facility] on 06/30-07/07 with dx of aspiration, [...] needed it. MICHELE Peterson [address], [place], [address], [place] [facility] 08/07/2023 09:59:26 08/07/2023 text/html duplicate chart, see other note from 08/07/23. MICHELE Peterson [address], [place], [address], [place] [facility] 08/07/2023 10:01:52
--- NOTE | 2025-05-22 13:57 | MHC.AU.HA3 ---
Hearing Instrument Follow-Up Date of Visit: 05/22/25 Right Ear: Make, Model, Color, Serial Number: [id number] Left Ear: Make, Model, Color, Serial Number: Rabia Bentley P 70-[address] O SN: [id number] is replacing [id number] Color: [place] Optical Laboratory Manager Repair Warranty: 10/20/2025 Optical Laboratory Manager Loss and Damage Warranty: 10/20/2025 [facility] Service Plan: 07/18/2023 Battery Size: 312 Type of Wax Guard: CeruStop Dispensed By: [facility] Date of Fittin08/05/2022 Follow-Up Summary: Aid dropped off. C/O battery door broken. Found door off hinge, otherwise intact. Battery lodged in hearing aid, removed. Cleaned aid (1), replaced wax guard (1), re-installed battery door (1) for [address] 3 units. Listening check positive. Recommendations: Recommendations: Hearing instrument follow-up or maintenance as needed. Diagnosis Code(s): Primary Diagnosis: H90.A32 Mixed HL, Unilateral, Left Ear, W/Restricted Contralateral Secondary Diagnosis: H90.A21 SNHL, Unilateral Right Ear, W/Restricted Contralateral Hearing Signature: Provider: Masha Fairbanks, [facility]
== END 2025-05-22 12:22 | disposition home or self-care (01) ==
LOC: HO.HAP 12:21
PROVIDERS: Visit Provider Internal Medicine
DX: Z13.89 Encounter for screening for other disorder (principal)

== ENCOUNTER 2025-05-23 13:15 | Outpatient (REF) | payer MEDICARE, MEDICAID, SELFPAY ==
--- OUTSIDE RECORDS SUMMARY | 2025-05-23 13:55 | XMS_ITS | Patient Health Record ---
Author Organization [facility] Address [address] [place] [address] Care Team Providers Care Legal Process Specialist Name Role Phone Wilmer Enciso MD Primary Care Provider Unavail able Corbin Swanson Unavailable [phone] Allergies Allergen (clinical drug ingredient) Drug/Non Drug [...] Orall y twice a day Active Nystatin 244178 UNIT/ML 4 mL Mouth/Throa t Four times [...] day(s) Active Hydrocortisone 1 % 1 application Brake Press Operator ally Once a day Active Ibuprofen 800 MG 1 tablet with food o r milk as needed Orally every 8 hrs Active Guaifenesin DM Cough & Chest Active Bisacodyl Laxative 10 MG 1 suppository a s needed Rectal Once a day for 30 day(s) Active Anusol-HC 2.5 % 1 application Brake Press Operator ally Twice a day Active Artificial [...] Problem Status W/U Status Risk Notes Problem 780949315 Encounter for screening for malignant neoplasm of colon (Z12.11) Active confirmed Problem 392506043 History of adenomatous polyp of colon (Z86.010) Active confirmed Problem 743641390 Alcoholic cirrho sis of liver without ascites (K70.30) Active confirmed Problem 058785107 Gastroesophageal reflux disease without esophagitis (K21.9) Active confirmed Problem 39732666 Alcoholic liver disease (K70.9) Active confirmed Problem 17321190 Constipation, unspecified constipation type (K59.00) Active confirmed Problem Acute gastroenteritis (88183170) Acute gastroenteritis (K52.9) Active confirmed Vital Signs Blood pressure diastolic 00 mm Hg 08/25/2024 Height 74 in 08/25/2024 Blood pressure systolic 00 mm Hg 08/25/2024 Weight 230 lbs 08/25/2024 BMI 29.53 kg/m2 08/25/2024 Encounters Encounter Location Date Provider Diagnosis [facility] [address] [place] [phone] 08/25/2024 Corbin Swanson Acute gastroenteriti s K52.9 ; Alcoholic liver disease K70.9 ; Alcoholic cirrhosis of liver without ascites K70.30 and Constipation, unspecified constipation type K59.00 [facility] [address] [place] [phone] 06/24/2024 Corbin Swanson [facility] [address] [place] [phone] 07/27/2024 Corbin Swanson [facility] [address] [place] [phone] 08/23/2024 Corbin Swanson [facility] [address] [place] [phone] 09/06/2024 Corbin Swanson [facility] [address] [place] [phone] 10/18/2024 Corbin Swanson [facility] [address] [place] [phone] 05/16/2025 Corbin Swanson Assessments Encounter Date Diagnosis (ICD [...] needed We will get copies of the [facility] ER visit in 07/2024 Overall, Samanta's recent [...] End Date MEDICARE OF [place] [address] [place] [address] [id number] SAMANTA CABRERA Self - patient is the insured [facility]ICAID [facility] [address] [place] [phone] [id number] SAMANTA CABRERA Self - patient is the insured Medical (General) History Medical History History ICD Code Urinary incontinence Hypertension Denies [place],DM,CVA,Lung disease,renal dise ase Alcohol-induced cirrhosis--n eg. CT of liver in 09/2019 at [facility]--no ascites, no masses---mild splenomgealy, positive varices Trouble walking due to trent ce issues in relation to his subdural hematomas and craniotomies Depression--at [facility] for 2 months 11/2021 to 01/2022; then to rehab until early February GERD/esophagitis--GI bleedin g admission at [facility]---upper endoscopy in 2006 revealed erosive esophagitis and esophageal ulcers while he was actively drinking; a followup endoscopy in 2008 revealed complete healing and no sign of Ac's esophagus Colonoscopies--2014 and 2016 at the [facility]--the 2014 exam was suboptimal due to poor bowel prep; the 2017 exam revealed a small tubular adenoma and small serrated adenoma EGD in [address] [facility] was negative for varices nor significant esophagitis--gastric biopsies were negative for H. pylori Chronic constipation Ischemic colitis in 2021. He had a Flex sig with Dr. Steiner Surgical History Surgery Date(Month/Year) Craniotomy x2 for subdurals 2006 Cholecystectomy 2012 Hernia repair age 4 Umbilical hernia repair 01/12/2020
--- OUTSIDE RECORDS SUMMARY | 2025-05-23 13:55 | XMS_ITS | Clinical Summary ---
Author Organization [facility] Address [address] [place] [address] Phone Care Team Providers Care Digital Marketing Specialist Name Role Phone Francie Keith NP Primary [...] (hypertension) 09/27/2024 Hyperlipidemia 09/27/2024 Traumatic brain injury ([facility] V24, CMS/HCC V28 ) 09/27/2024 Alcoholic cirrhosis (CMS/HCC V24, CMS/HCC V28) 1 11/27/2023 Thoracic spine pain 09/27/2024 Secondary parkinsonism (CMS/HCC V24, CMS/HCC V28 ) 09/27/2024 Encounters Date Type Department Care Team Description 03/29/2025 2:30 PM EDT Office Visit Orthopedic Surgery - [address] [place] [phone] Jack Cuevas, DPM Bilateral femoral artery [...] AM EDT Office Visit Orthopedic Surgery - [place] [address] [phone] Jack Cuevas, DPM [address] [address] Health Maintenance Due Date Last Done Comments [...] Hep B Twinrix 3-dose series) 10/06/2024 09/08/2024 Influenza Vaccine (#1) 2025 , 10/29/2023, 08/18/2022, Additional history exists Pneumococcal Vaccine: 50+ Years Completed 08/18/2022, 11/02/2019, 10/12/2017, Additional history exists RSV Immunization Adult Patients Completed 10/29/2023 Hepatitis A Vaccines Aged Out 09/08/2024 No long er eligible based on patient's age to complete this topic Zoster Vaccines Completed 09/08/2024, 11/02/2019 HIB Vaccines [...] Insurance MEDICARE MEDICAID - [place] Care Teams Digital Marketing Specialist Relationship Specialty Start Date End Date Francie Keith NP [address] [place] [phone] PCP - General 05/27/23
== END 2025-05-23 13:16 | disposition home or self-care (01) ==
LOC: HO.HAP 13:15
PROVIDERS: Visit Provider Physician Assistant Medical
DX: Z46.1 Encounter for fitting and adjustment of hearing aid (principal); H90.A32 Mixed conductive and sensorineural hearing loss, unilateral, left ear with restricted hearing on the contralateral side; H90.A21 Sensorineural hearing loss, unilateral, right ear, with restricted hearing on the contralateral side
CPT/HCPCS: 92592; 99499

== ENCOUNTER 2025-06-08 12:58 | Outpatient (AMB) | payer MEDICARE, MEDICAID, SELFPAY ==
--- NOTE | 2025-06-08 13:02 | A.OFFVIS_ITS ---
Vital Signs 06/08/25 13:03 Height 6 ft 2 in BMI Reason not done Patient refused/unable BP 135/72 Blood Pressure Location Lt brachial Position Sitting Pulse 61 Intake Visit Reasons: 3m Intake Note: Samanta presents in the office as a 3 month follow up. CC: States his bowels are a mess - constipation and diarrhea. Process Operator Required: No Allergies fentanyl (FENTANYL) Allergy (Intermediate, Verified 06/08/25 13:03) unknown Medication List - Last Reconciled 06/08/25 by Jimenez Steiner MD acetaminophen 650 mg (2 x 325 mg) PO Q6H PRN alprazolam 0.25 mg PO BID PRN amlodipine 5 mg See Protocol PO DAILY 30 days benztropine 0.5 mg PO TID clotrimazole 1% 1 appl See Protocol topical BEDTIME dextromethorphan-guaifenesin 10-100 mg/5 mL 5 mL PO Q4H PRN 30 days divalproex 500 mg (2 x 250 mg) PO BEDTIME 30 days docusate sodium 100 mg PO DAILY finasteride 1 tab PO DAILY 30 days hydrocortisone 1% 1 appl topical BID PRN hydroxyzine HCl 25 mg PO QID PRN 30 days lemborexant 10 mg PO BEDTIME lidocaine 4% ea topical linaclotide (Linzess) 290 mcg PO QAM 30 days magnesium hydroxide (Milk of Magnesia) 30 mL PO BID PRN 30 days multivitamin 1 tab PO DAILY 30 days naltrexone 50 mg PO DAILY nortriptyline 75 mg PO BEDTIME 30 days nystatin 1 appl See Protocol topical BEDTIME 30 days polyethylene glycol 3350 (HealthyLax) grams PO propranolol 20 mg See Protocol PO TID 30 days psyllium husk (with sugar) 3 gram/7 gram (Reguloid (psyllium husk-sucrose)) PO sennosides (senna) 17.2 mg PO DAILY trazodone 200 mg (2 x 100 mg) PO BEDTIME vortioxetine (Trintellix) 20 mg PO DAILY 30 days HPI HPI 3m: Details: GI clinic visit for this 69 YM referred by MICHELE Lala for a 2nd op inion on dysphagia, colitis and constipation TODAY'S VISIT: Patient cc: CC: States his bowels are a mess - constipation and diarrhea. 69-year-old male presenting with concerns regarding bowel movement irregularities, which have been a persistent issue since he was a teenager. Post recent colonoscopy, the irregularities have continued, presenting with two to three bowel movements daily with a consistency that transitions from soft and formed stools to diarrhea towards the end. He denies any abdominal pain or bleeding and reports that despite the use of Linzess, Colace, and a blood pressure medication, regularity has not been achieved. He expresses awareness that dietary habits influence his symptoms. The patient mentioned that dietary habits play a role in his bowel movements. No specific dietary restrictions were discussed, but he is taking Linzess and Colace as part of his bowel management regimen. The patient did not report any food allergies or significant restrictions affecting his current diet. PAST VISITS: I have been constipated. I am taking the medication as recommended. Just had fecal incontinence while waiting for his appt in the GI clinic Goes to the bathroom and unable to have a BM. Pt is on a regular bowel program and having a BM a few times a day - intermittent complete evacuation BM are unpredictable Pt complains of diarrhea alternating with constipation Turned 69 last fall and has been having GI problems since age 14 yrs. Constipated most of the days - 5 out of 7 days On a regular bowel program with intermittent results sometimes it works wonderfully and sometimes it does not Can have episodes of forceful diarrhea Bowel program consists of: Miralax twice daily Fibre gummies 5 grams - 2 gummies in the evening Colace 100 mg every morning Linzess 145 mcg in the evening Senna 8.6 mg twice a day Also on prn MOM 30 ml twice a day, Senna 8.6 mg once a day and bisacodyl supp 10 mg at bedtime Pt denies smoking and states no ETOH for the past year States dysphagia is not a major problem at present. I am on a plethora of GI medications Is on a regular diet Had an episode of choking during hospitalization and placed on a chopped diet. Does not eat as much and has lost some weight Occasional nausea and vomiting Denies recent black stools or rectal bleeding (occasional bleeding from hemorrhoid). Patient has COPD and denies major cardiac or problems, loud snoring or sleep apnea Had a major brain bleed in May 2007 and treated at [facility] Had his left hip replaced and denies problems with anesthesia in the past. Denies being on chronic anticoagulation. Patient denies known family history of colon polyps, colon cancer or other GI malignancies. No one left in the family - brothers and parents have Ex- and 30 year old son live in [place] Pt lives in a snf in [place]. LABS IN [facility] : 10/2024 Reviewed IMAGING STUDIES: 07/17/[address] (at [facility]) showed liver cirrhosis without a liver mass or ascites ENDOSCOPIC STUDIES: Last colon 4-[address] Swanson - and per pt polyps were removed. EGD in [address] Swanson showed erosive esophagitis, hiatal hernia and gastritis. He was treated with pantoprazole 40 mg twice daily and follow-up EGD showed esophagitis had healed. 09/2022 FLEXIBLE SIGMOIDOSCOPY SHOWED: Edema, erythema, ulcerations with submucosal hemorrhages from 30 to 50 cms suggestive of ischemic colitis - biopsies were obtained No active bleeding noted during examination Moderate diverticulosis seen in the left colon Moderate hemorrhoids on retroflexed exam. Plan: Continue IV antibiotics. Start a clear liquid diet today and advance diet as tolerated. Patient to FU in the GI clinic with Dr Swanson (his primary fine wire drawer) to discuss outpatient evaluation with an EGD and Colonoscopy. Biopsies showed ischemic colitis. PAST GI HISTORY BY REVIEW OF MEDICAL RECORDS: 09/2022 PATIENT WAS SEEN DURING HOSPITALIZATION AT [facility] Reason for consult: bloody stool- likely hemorrhoid? 67 YM with history of ETOH abuse, anxiety, cognitive and neurobehavioral dysfunction following brain injury, depression, HTN, seizure disorder, history of subdural hematoma, TIA, TBI, seen at [facility] ED on 09/17/22 with abdominal pain, ?? Constipation with bladder and bowel incontinence.? Patient is a vague and a poor historian and stated that he has to strain very hard in order to relieve himself to move his bowels, reports lower abdominal pain, nonradiating, the pain is 8/10, constant for the past month, has difficulty moving his bowels, Pt reported urinary incontinence no urinary urgency dysuria or frequency.? Patient reports that sometimes his stools also watery.? He denies any fever, no chills.? He does complain of bright red blood per rectum. He denies having any shortness of breath although on my exam patient is having significant audible wheezing, denies any orthopnea or PND, no lower extremity edema.? Denies any chest pain.? Patient reports that he drinks a significant amount of wine and liquor 4 to 5 times a week.? He reports that he is feeling like is withdrawing right now. EGD [place] [address] Swanson showed erosive esophagitis, hiatal hernia and gastritis. He was treated with pantoprazole 40 mg twice daily and follow-up EGD showed esophagitis had healed. 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 Per report obtained from ED patient was found by [facility] covered in feces.? Noted to have bright blood in feces after having multiple episodes of diarrhea in the ED. On arrival to the ED patient hemodynamically stable no significant abnormal vitals Labs are significant for WBC count of 13.1, hemoglobin of 13, hematocrit 39, potassium of 5.5, creatinine of 2.2 with a baseline of around 1.27, urine positive for leukocyte Estrace and WBC COVID-19 negative, stool occult positive for blood 09/17/[address] SCAN SHOWED: 1.? Findings compatible with colitis involving the distal sigmoid colon. No pneumatosis to suggest specific evidence of ischemic bowel although this possibility cannot be definitively excluded. No evidence of sigmoid diverticulosis to suggest this represents diverticulitis. 2.? No additional acute intra-abdominal process. 3.? Cirrhotic liver morphology. 4.? Multiple chronic appearing lower thoracic and lumbar compression fractures. 5.? Additional ancillary findings, as described [facility] Medical History History of electroconvulsive therapy Inflammatory disorders of scrotum Chronic obstructive pulmonary disease, unspecified Secondary parkinsonism, unspecified Hypothyroidism, unspecified Thrombocytopenia, unspecified Acute insomnia Intermittent urinary incontinence BPH (benign prostatic hyperplasia) Resides in half-way care facility Cataracts, bilateral Glaucoma Major depression, recurrent, chronic Sinusitis Aggressive behavior Alcohol use disorder, moderate, dependence TBI (traumatic brain injury) Anxiety TIA (transient ischemic attack) Hypertension Alcohol abuse Subdural hematoma Seizure disorder Depression 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, recurrent severe without psychotic features Major depressive disorder, recurrent HTN (hypertension) Hernia Surgical History Hx of colonoscopy Hx of bilateral cataract extraction History of cholecystectomy H/O craniotomy H/O umbilical hernia repair History of hip replacement S/P cholecystectomy H/O brain surgery Family History Other Family history unobtainable Social History Household Members: None Household Members Other:: resides in snf Housing: Retirement Housing Other:: resides in snf Are you a primary date night caregiver to a significant other at home: No Do you presently have visiting nurse or other home services: Yes (snf staff) Alcohol intake: never Comment: wears shoes Patient Tobacco Use Status: Never used Tobacco e-Cigarette/Vaping Use: Never Used Second Hand Smoke Exposure: No Advance Directives Date on File: 05/27/19 service: No Current occupational status: disabled Sexual orientation: Straight/Heterosexual Review of Systems Const All systems reviewed & are unremarkable except as noted in HPI and below Physical Exam Vital Signs: Last Vital Signs Pulse 61 06/08/25 13:03 BP 135/72 06/08/25 13:03 Const General: no acute distress Nutritional Appearance: obese Orientation/consciousness: patient oriented x3 Limitations: wheelchair HEENT Head: Yes normal to inspection Ears: hearing grossly normal bilaterally Eyes Sclerae: sclerae normal Pupils: Equal, round and reactive pupils present Neck Neck: Yes normal visual inspection Chest Chest palpation & inspection: normal inspection of the chest Resp Effort & Inspection: normal respiratory effort Auscultation: clear to auscultation bilaterally Cardio Palpation: normal PMI Rate: regular rate Rhythm: regular rhythm Heart sounds: S1 normal heart sound present, S2 normal heart sound present and no murmurs GI Palpation (GI): Soft to palpation, nontender and No hepatosplenomegaly present Auscultation: normal bowel sounds Rectal Exam - Male: Yes deferred Skin General skin exam: no rashes or lesions noted Neuro General: patient oriented x3, gait normal and moves all extremities Cranial nerves: Yes Equal, round and reactive pupils present Psych Appearance: grossly normal Mental Status: mental status grossly normal Assessment & Plan Assessment & Plan (1) Chronic constipation: Code(s): K59.09 - Other constipation Category: Medical (2) Dysphagia: Code(s): R13.10 - Dysphagia, unspecified Category: Medical (3) History of colon polyps: Code(s): Z86.0100 - Personal history of colon polyps, unspecified Category: Medical Plan 69 YM with history of ETOH abuse, anxiety, cognitive and neurobehavioral dysfunction following brain injury, depression, HTN, seizure disorder, history of subdural hematoma, TIA, TBI, seen during hospitalization at [facility] in Sep, 2022 for abdominal pain, ?? Constipation with bladder and bowel incontinence.? Flexible sigmoidoscopy showed Edema, erythema, ulcerations with submucosal hemorrhages from 30 to 50 cms Biopsies confirmed a diagnosis of ischemic colitis 02/02/25 Pt seen for constipation with intermittent diarrhea (likely paradoxical diarrhea related to constipation) He was advised to increase linaclotide to 290 mcg (from 145 mcg) every morning and continue with the current bowel program. He will be scheduled for a colonoscopy once constipation improves - request sent to the GI surgical instruments inspector. Present Bowel program consists of: Miralax twice daily Fibre gummies 5 grams - 2 gummies in the evening Colace 100 mg every morning Linzess 290 mcg in the evening Senna 8.6 mg twice a day Also on prn MOM 30 ml twice a day prn, Senna 8.6 mg once a day and bisacodyl supp 10 mg at bedtime 05/15/25 colonoscopy showed: Five small to medium sized polyps were removed Moderate diverticulosis seen in the sigmoid colon Moderate hemorrhoids on retroflexed exam. Plan: Repeat Colonoscopy in 1 year if polyps are adenomatous and due to fair prep. BIOPSIES SHOWED: A. Colon, ascending, polypectomies: Fragments of tubular adenomata; negative for high-grade dysplasia or carcinoma. B. Colon, right, biopsy: Melanosis coli; otherwise colonic mucosa within normal limits. C. Colon, transverse, polypectomy: Tubular adenoma; negative for high-grade dysplasia or carcinoma. D. Colon, sigmoid, polypectomy: Fragments of tubular adenoma; negative for high- grade dysplasia or carcinoma Letter sent to the patient with biopsy results. Patient was placed on the colonoscopy recall list for repeat colonoscopy in 1 year. 06/08/25 Pt advised to decreased Miralax to once a day to see if intermittent episodes of diarrhea improve Continue bowel program with Linzess, colace and senna as outlined above TV in 4 weeks Coding Level of Care Code Est Pt Level 3 (08986) Diagnoses Chronic constipation K59.09 Dysphagia R13.10 History of colon polyps Z86.0100 Time Spent (min) 18
[2025-06-08 13:03] VITALS: BP 135/72; PULSE 61
--- OUTSIDE RECORDS SUMMARY | 2025-06-08 13:09 | XMS_ITS | Data Portability ---
Author Organization [place] [facility] Address [address] [place] [phone] Care Team Providers Care Sap Abap Developer Name Role Phone WILLIAM FRANCOIS Primary Care Provider Assessment Encounter Date Assessment Date Assessment LastModified by Organization Details LastModified Time 08/07/2023 08/07/2023 Time On Scene with Patient: 00:45:06 [email or web address] Not available 08/07/2023 09:43:06 08/07/2023 08/07/2023 Brief Overview: 67 y/o male c/o cough now x 1 month since he release from [facility] on 07/07. he was admitted for [...] after care of this patient according to [facility]'s infection prevention protocols. [email or web address] Not available 08/07/2023 09:53:47 Plan of Treatment Reminders Order Date Submit Date Provider Last Modified By Organization Details Last Modified Time Details Appointments None recorded. Lab None recorded. Referral None recorded. Procedures None recorded. Surgeries None recorded. Imaging XR, chest, 2 view - hx aspiration pneumonia in June 242022 023 [facility] [address], [place], [address], 14:04:05 Medication Orders None recorded. Patient TargetsNo targets recorded. Patient Instructions Encounter Date Encounter Id Patient Instructions Last Modified By Organization Details Last Modified Time 08/07/2023 [id number] Inhaler Instructions Before use, you need to [...] after cleaning actually helps it work better. [email or web address] Not available 08/07/2023 09:29:49 Reason for Referral [...] GAMBLE M.D. 023 3:35:2 0 PM EDT. [employer] [facility], [place], [address], 08/08/2023 12:17:49 Result Notes Documentation Provider Name [...] 3:35:20 PM EDT. Cora Waite NP [address], [place], [address], [place] [facility] 08/08/2023 12:17:49 Procedures Surgical History Date Name Laterality Status Provider Name and Address Organization Details Recorded Time Cholecystectomy completed MICHELE Peterson [address], [place], [address], [place] [facility] 08/07/2023 09:11:13 Hernia Repair completed MICHELE Peterson [address], [place], [address], [place] [facility] 08/07/2023 09:11:21 operative procedure on knee completed MICHELE Peterson [address], [place], [address], [place] [facility] 08/07/2023 09:11:29 total replacement of hip completed MICHELE Peterson [address], [place], [address], [place] [facility] 08/07/2023 09:11:40 Imaging Results None recorded. Procedure Notes None recorded. Medical Equipment None Reported. Allergies Allergen ID Allergen Name Allergen Category Reaction Reaction Severity Criticality Documentation Date Start Date Code Code System Note Provider Name and Address Organization Details Recorded Time [id number] fentanyl medicatio n Not available Not available Not available 08/07/2023 4337 [facility] MICHELE Peterson [address], [place], [address], [facility] 09:01:10 Medications Name Sig Start [...] Status Never Smoker MICHELE Peterson [address], [place], [address], [place] [facility] 08/07/2023 09:10:04 Fall Risk: Do You Feel Unsteady When Standing Or Walking? Yes [email or web address] Information not available 08/07/2023 Excessive Alcohol Or Drug Use No [email or web address] Information not available 08/07/2023 Does This Patient Have A PCP? Yes [email or web address] Information not available 08/07/2023 Has The Patient Seen Their PCP In The Past 6 Months? Yes [email or web address] Information not available 08/07/2023 ADL: Do You Need Help With Daily Activities Such As Bathing, Preparing Meals, Dressing, Or Cleaning? Yes (Z74.1) [email or web address] Information not available 08/07/2023 What Is Your Housing Situation Today? I Have Housing [email or web address] Information not available 08/07/2023 Sex: Unknown Functional Status Question Answer Note LastModified by [email or web address] ion Details LastModified Time Do you use any illicit or recreational drugs? No [email or web address] Information not available 08/07/2023 What is your level of alcohol consumption? None Information not available 08/07/2023 Mental Status None [...] SNOMED-CT Code Diagnosis ICD10 Code Diagnosis Note [id number] MICHELE Peterson [address] [address] 08/07/2023 08:58:44 08/19/2023 22:31:59 Pneumonia [id number] J18.9 Status of condition: Acute. Testing/Re sults: [...] edema, lethargy, weakness, dizziness, vomiting. Essential hypertension [id number] I10 Status of condition: Chronic. Testing/Re sults: BP 128/74 on scene. Discussion : BP controlled on current regimen. he is asymptomat ic. Plan, Medication Management & Follow-up recommenda tions:foll ow up with pcp next week as scheduled. go to the ER with worsening symptoms cp, sob, weakness, dizziness, HAs, edema, vision changes. [id number] MICHELE Peterson [facility] [address] [place] [address] 08/07/2023 09:00:31 08/10/2023 12:56:52 Health Concerns Section Related Observation LastModified by Organization Detai ls LastModified Time None Recorded Concern Status LastModified by Organization Details LastModified Time None Recorded Advance Directives Directive None Recorded Payers Insurance Date Sequence Insurance Name Policy Number Policy Hernandez Covered Member ID Hernandez Member ID Guarantor Name 08/20/2023 2 [place] [facility] Samanta Barros [id number] Samanta Barros 08/20/2023 1 [place] [facility] Samanta Barros [id number] Samanta Barros 08/06/2023 1 [place] [employer] Samanta Barros [id number] Samanta Barros 08/06/2023 1 *SELF PAY* Samanta Barros [id number] Samanta Barros Notes Date Note Type Note Provider Name and Address Organization Details Recorded Time 08/07/2023 text/html General HPI Template - DHReported by Patient 67 y/o male new to and provider with hx of depression, HTN, hyperlipidemia, RA, Epilepsy, left hemiplegia, hand tremors, alcohol abuse, GERD, BPH, Bipolar, chronic pain, glaucoma, urinary retention, hx of traumatic subdural hemorrhage. pt was admitted to [facility] on 06/30-07/07 with dx of aspiration, [...] needed it. MICHELE Peterson [address], [place], [address], [place] [facility] 08/07/2023 09:59:26 08/07/2023 text/html duplicate chart, see other note from 08/07/23. MICHELE Peterson [address], [place], [address], [place] [facility] 08/07/2023 10:01:52
--- OUTSIDE RECORDS SUMMARY | 2025-06-08 13:10 | XMS_ITS | Clinical Summary ---
Author Organization [address] [facility] Address [address] [place] [address] Phone Care Team Providers Care Media Account Executive Name Role Phone Francie Keith NP Primary [...] (hypertension) 09/27/2024 Hyperlipidemia 09/27/2024 Traumatic brain injury ([facility] V24, CMS/HCC V28 ) 09/27/2024 Alcoholic cirrhosis (CMS/HCC V24, CMS/HCC V28) 1 11/27/2023 Thoracic spine pain 09/27/2024 Secondary parkinsonism (CMS/HCC V24, CMS/HCC V28 ) 09/27/2024 Encounters Date Type Department Care Team Description 03/29/2025 2:30 PM EDT Office Visit Orthopedic Surgery - [address] [place] [phone] Jack Cuevas, DPM Bilateral femoral artery [...] AM EDT Office Visit Orthopedic Surgery - [place] [address] [phone] Jack Cuevas, DPM [address] [address] Health Maintenance Due Date Last Done Comments DTaP,Tdap,and Td Vaccines (1 - Tdap) 1974 Abdominal Aortic Aneurysm (AAA) Screen 12/10/2023 Cholesterol Screening (Lipid Panel) 12/10/2023 Colorectal Cancer Screening: Colonoscopy 12/10/2023 Falls Risk Assessment 12/10/2023 Hepatitis C Screening 12/10/2023 Medicare Annual Wellness Visit 12/10/2023 Social Influencers of Health Screening 12/10/2023 COVID-19 Vaccine ( season) 2024 10/29/2023, 08/23/2021, 12/24/2020, Additional history exists Hypertension/CHF/CAD Annual BMP Blood Test 09/28/2024 Hepatitis B Vaccines (2 of 3 - Hep B Twinrix 3-dose series) 10/06/2024 09/08/2024 Depression Screening 11/16/2024 Influenza Vaccine (#1) 2025 , 10/29/2023, 08/18/2022, [...] Insurance MEDICARE [place]ICAID - [place] Care Teams Media Account Executive Relationship Specialty Start Date End Date Francie Keith NP [address] [place] [phone] PCP - General 05/27/23
--- OUTSIDE RECORDS SUMMARY | 2025-06-08 13:10 | XMS_ITS | Patient Health Record ---
Author Organization [facility] Address [address] [place] [phone] Care Team Providers Care Auto Garage Attendant Name Role Phone Wilmer Enciso MD Primary Care Provider Unavail able Corbin Swanson Unavailable [phone] Allergies Allergen (clinical drug ingredient) Drug/Non Drug [...] Orall y twice a day Active Nystatin 362123 UNIT/ML 4 mL Mouth/Throa t Four times [...] day(s) Active Hydrocortisone 1 % 1 application Floor Polisher ally Once a day Active Ibuprofen 800 MG 1 tablet with food o r milk as needed Orally every 8 hrs Active Guaifenesin DM Cough & Chest Active Bisacodyl Laxative 10 MG 1 suppository a s needed Rectal Once a day for 30 day(s) Active Anusol-HC 2.5 % 1 application Floor Polisher ally Twice a day Active Artificial Tear [...] Problem Status W/U Status Risk Notes Problem 356255418 Encounter for screening for malignant neoplasm of colon (Z12.11) Active confirmed Problem 506236932 History of adenomatous polyp of colon (Z86.010) Active confirmed Problem 321711091 Alcoholic cirrho sis of liver without ascites (K70.30) Active confirmed Problem 204919843 Gastroesophageal reflux disease without esophagitis (K21.9) Active confirmed Problem 29225676 Alcoholic liver disease (K70.9) Active confirmed Problem 83833698 Constipation, unspecified constipation type (K59.00) Active confirmed Problem Acute gastroenteritis (94747306) Acute gastroenteritis (K52.9) Active confirmed Vital Signs Blood pressure diastolic 00 mm Hg 08/25/2024 Height 74 in 08/25/2024 Blood pressure systolic 00 mm Hg 08/25/2024 Weight 230 lbs 08/25/2024 BMI 29.53 kg/m2 08/25/2024 Encounters Encounter Location Date Provider Diagnosis [facility] [address] [place] [phone] 08/25/2024 Corbin Swanson Acute gastroenteriti s K52.9 ; Alcoholic liver disease K70.9 ; Alcoholic cirrhosis of liver without ascites K70.30 and Constipation, unspecified constipation type K59.00 [facility] [address] [place] [phone] 06/24/2024 Corbin Swanson [facility] [address] [place] [phone] 07/27/2024 Corbin Swanson [facility] [address] [place] [phone] 08/23/2024 Corbin Swanson [facility] [address] [place] [phone] 09/06/2024 Corbin Swanson [facility] [address] [place] [phone] 10/18/2024 Corbin Swanson [facility] [address] [place] [phone] 05/16/2025 Corbin Swanson Assessments Encounter Date Diagnosis [...] needed We will get copies of the [facility] ER visit in 07/2024 Overall, Samanta's [...] PROTHROMBIN TIME (PT, INR) 05/18/2018 ALPHA-FETOPROTEIN,TUMOR MARKER 2 ALPHA-FETOPROTEIN,TUMOR MARKER 0 ALPHA-FETOPROTEIN,TUMOR MARKER 8 US ABD 02/25/2022 US ABD 10/04/2020 US abdomen complete 03/07/2022 Insurance Providers Payer Name Payer Address Payer Phone Subscriber Number Group Number Insured Name Patient Relationship to Insured Coverage Start Date Coverage End Date MEDICARE OF [place] [address] [place] [address] [id number] SAMANTA CABRERA Self - patient is the insured [facility] [address] [place] [phone] [id number] SAMANTA CABRERA Self - patient is the insured Medical (General) History Medical History History ICD Code Urinary incontinence Hypertension Denies [place],DM,CVA,Lung disease,renal dise ase Alcohol-induced cirrhosis--n eg. CT of liver in 09/2019 at [facility]--no ascites, no masses---mild splenomgealy, positive varices Trouble walking due to trent ce issues in relation to his subdural hematomas and craniotomies Depression--at [facility] for 2 months 11/2021 to 01/2022; then to rehab until early February GERD/esophagitis--GI bleedin g admission at [facility]---upper endoscopy in 2006 revealed erosive esophagitis and esophageal ulcers while he was actively drinking; a followup endoscopy in 2008 revealed complete healing and no sign of Ac's esophagus Colonoscopies--2014 and 2016 at the [facility]--the 2014 exam was suboptimal due to poor bowel prep; the 2017 exam revealed a small tubular adenoma and small serrated adenoma EGD in 2016 at the [facility] was negative for varices nor significant esophagitis--gastric biopsies were negative for H. pylori Chronic constipation Ischemic colitis in 2021. He had a Flex sig with Dr. Steiner Surgical History Surgery Date(Month/Year) Craniotomy x2 for subdurals 2006 Cholecystectomy 2012 Hernia repair age 4 Umbilical hernia repair 01/12/2020
== END 2025-06-08 13:45 | disposition home or self-care (01) ==
LOC: HO.HGI 12:59
PROVIDERS: PCP Internal Medicine; Visit Provider Internal Medicine Gastroenterology
DX: K59.09 Other constipation (principal); R13.10 Dysphagia, unspecified; Z86.0100 Personal history of colon polyps, unspecified
CPT/HCPCS: 99213

== ENCOUNTER → 2025-06-08 12:58 | Outpatient (BNVA) | payer MEDICARE, MEDICAID, SELFPAY | PROVIDERS: PCP Internal Medicine; Visit Provider Internal Medicine Gastroenterology | DX: K59.09 Other constipation (principal); R13.10 Dysphagia, unspecified | CPT/HCPCS: 99212 ==

== ENCOUNTER 2025-06-28 09:37 | Outpatient (AMB) | payer MEDICARE, MEDICAID, SELFPAY ==
--- NOTE | 2025-06-28 09:39 | A.OFFVIS_ITS ---
Intake Visit Reasons: 6m Follow up Intake Note: Patient is present for 6 mo follow up Urology Medication:FINASTERIDE Antibiotic Allergy:NONE Blood Thinner:NONE TODAY'S PVR:262ML'S Manual Tester Required: No Accompanied by: Self / Same As Patient Allergies fentanyl (FENTANYL) Allergy (Intermediate, Verified 06/28/25 09:48) unknown HPI Comments Details: Samanta is a male. He is a patient of . He seen for following urologic conditions - lower urinary tract symptoms - testicular pain Six-month follow-up High residual remains Add bethanechol Lower urinary tract symptoms with incomplete emptying On finasteride Cognitive depression with significant use of anticholinergic medications Background of TBI Multiple high PVRs around 300 PFSH Medical History History of electroconvulsive therapy Inflammatory disorders of scrotum Chronic obstructive pulmonary disease, unspecified Secondary parkinsonism, unspecified Hypothyroidism, unspecified Thrombocytopenia, unspecified Acute insomnia Intermittent urinary incontinence BPH (benign prostatic hyperplasia) 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 Cataracts, bilateral Glaucoma Major depression, recurrent, chronic Sinusitis Aggressive behavior Alcohol use disorder, moderate, dependence TBI (traumatic brain injury) Anxiety TIA (transient ischemic attack) Hypertension Alcohol abuse Subdural hematoma Seizure disorder Depression 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, recurrent severe without psychotic features Major depressive disorder, recurrent HTN (hypertension) Hernia Surgical History Hx of colonoscopy Hx of bilateral cataract extraction History of cholecystectomy H/O craniotomy H/O umbilical hernia repair History of hip replacement S/P cholecystectomy H/O brain surgery Family History Other Family history unobtainable Social History Household Members: None Household Members Other:: resides in custodial Housing: Penitentiary Housing Other:: resides in custodial Are you a primary lawn care professional to a significant other at home: No Do you presently have visiting nurse or other home services: Yes (custodial staff) Alcohol intake: never Comment: wears shoes Patient Tobacco Use Status: Never used Tobacco e-Cigarette/Vaping Use: Never Used Second Hand Smoke Exposure: No Advance Directives Date on File: 05/27/19 service: No Current occupational status: disabled Sexual orientation: Straight/Heterosexual Review of Systems Const Denies chills and Denies fever(s) Card Reports no additional complaints and Denies syncope Resp Denies cough GI Denies abdominal pain and Denies heartburn Reports as per HPI and Denies change in libido Neuro Denies syncope Psych Denies change in libido Endo Denies change in libido Physical Exam Const General: cooperative, healthy appearing, comfortable and no acute distress Orientation/consciousness: patient oriented x3 HEENT Face and sinus: Yes normal facial exam Mouth: moist mucous membranes Neck Neck: Yes normal visual inspection, Yes full ROM and Yes trachea midline Chest Chest palpation & inspection: normal inspection of the chest Resp Effort & Inspection: normal respiratory effort, able to speak in complete sentences and no respiratory distress GI Inspection: Yes normal to inspection Back/Spine/Pelvis Cervical Spine: normal cervical lordosis Thoracic/Lumbar Spine: thoracic and lumbar spine normal to inspection Skin General skin exam: no rashes or lesions noted Neuro General: patient oriented x3, gait normal, tone normal and moves all extremities Extrem General: Yes normal to inspection and Yes capillary refill normal Assessment & Plan Assessment & Plan (1) BPH (benign prostatic hyperplasia): Code(s): N40.0 - Benign prostatic hyperplasia without lower urinary tract symptoms Category: Medical (2) Urinary retention with incomplete bladder emptying: Code(s): R33.9 - Retention of urine, unspecified Category: Medical Plan Trial bethanechol Patient Instructions: This note is constructed using voice recognition software. While every effort has been made to ensure accuracy applied biology professor errors may have been included. Imaging studies, laboratory and physical exam results were discussed and reviewed in detail. No major barriers to patient understanding were identified. An opportunity to ask questions regarding the treatment plan was provided. All questions were answered. The patient expressed understanding and agreement with the above treatment plan. The patient is aware they should contact our office by phone for worsening of their current condition or the appearance of new urologic symptoms. Compliance is encouraged with any medications and followup testing that is ordered. It is a privilege to participate in the urologic care of your patient. If you have any questions or concerns regarding treatment for the above conditions, or other urologic issues, please do not hesitate to contact me. The office telephone contact is [phone]. Sincerely, Dr Rik Zhong MD, R[facility] - Urology Compassionate Specialist Care for the Genitourinary System Coding Level of Care Code Est Pt Level 4 (87201) Diagnoses BPH (benign prostatic hyperplasia) N40.0 Urinary retention with incomplete bladder emptying R33.9
--- OUTSIDE RECORDS SUMMARY | 2025-06-28 10:05 | XMS_ITS | Clinical Summary ---
Author Organization [address] [facility] Address [address] [place] [address] Phone Care Team Providers Care Design Assembler Name Role Phone Francie Keith NP Primary [...] (hypertension) 09/27/2024 Hyperlipidemia 09/27/2024 Traumatic brain injury ([facility] V24, CMS/HCC V28 ) 09/27/2024 Alcoholic cirrhosis (CMS/HCC V24, CMS/HCC V28) 1 11/27/2023 Thoracic spine pain 09/27/2024 Secondary parkinsonism (CMS/HCC V24, CMS/HCC V28 ) 09/27/2024 Encounters Date Type Department Care Team Description 03/29/2025 2:30 PM EDT Office Visit Orthopedic Surgery - [address] [place] [phone] Jack Cuevas, DPM Bilateral femoral artery [...] AM EDT Office Visit Orthopedic Surgery - [place] [address] [phone] Jack Cuevas, DPM [address] [address] Health Maintenance Due Date Last Done Comments [...] Insurance MEDICARE MEDICAID - [place] Care Teams Design Assembler Relationship Specialty Start Date End Date Francie Keith NP [address] [place] [phone] PCP - General 05/27/23
--- OUTSIDE RECORDS SUMMARY | 2025-06-28 10:05 | XMS_ITS | Patient Health Record ---
Author Organization [facility] Address [address] [place] [phone] Care Team Providers Care Anesthesiology Medical Doctor Name Role Phone Wilmer Enciso MD Primary Care Provider Unavail able Corbin Swanson Unavailable [phone] Allergies Allergen (clinical drug ingredient) Drug/Non Drug [...] Orall y twice a day Active Nystatin 777321 UNIT/ML 4 mL Mouth/Throa t Four times [...] BY ASHLEY TH DAILY AT BEDTIME Active Polyethylene Glycol 3350 17 GM 1 packet mixed with 8 ounces of fluid Orally Twice a day for 30 days Active Nortriptyline HCl 75 MG as directed [...] day(s) Active Hydrocortisone 1 % 1 application Dispatch Clerk ally Once a day Active Ibuprofen 800 MG 1 tablet with food o r milk as needed Orally every 8 hrs Active Guaifenesin DM Cough & Chest Active Bisacodyl Laxative 10 MG 1 suppository a s needed Rectal Once a day for 30 day(s) Active Anusol-HC 2.5 % 1 application Dispatch Clerk ally Twice a day Active Artificial Tear Solution - as directed Ophthalmic Active Magnesium Hydroxide 2400 MG/10ML 5 mL Orally Twice a day for 30 day(s) Active Tylenol 8 Hour 650 MG 1 tablet as needed Orally every 8 hrs Active traZODone HCl 150 MG 1 tablet at bedtime Orally hs Active Artificial Tears 1-0.3 % 1 drop [...] Problem Status W/U Status Risk Notes Problem 529494985 Encounter for screening for malignant neoplasm of colon (Z12.11) Active confirmed Problem 201425594 History of adenomatous polyp of colon (Z86.010) Active confirmed Problem 963626326 Alcoholic cirrho sis of liver without ascites (K70.30) Active confirmed Problem 888118064 Gastroesophageal reflux disease without esophagitis (K21.9) Active confirmed Problem 93345578 Alcoholic liver disease (K70.9) Active confirmed Problem 28612316 Constipation, unspecified constipation type (K59.00) Active confirmed Problem Acute gastroenteritis (36590641) Acute gastroenteritis (K52.9) Active confirmed Vital Signs Blood pressure diastolic 00 mm Hg 08/25/2024 Height 74 in 08/25/2024 Blood pressure systolic 00 mm Hg 08/25/2024 Weight 230 lbs 08/25/2024 BMI 29.53 kg/m2 08/25/2024 Encounters Encounter Location Date Provider Diagnosis [facility] [address] [place] [phone] 08/25/2024 Corbin Swanson Acute gastroenteriti s K52.9 ; Alcoholic liver disease K70.9 ; Alcoholic cirrhosis of liver without ascites K70.30 and Constipation, unspecified constipation type K59.00 [facility] [address] [place] [phone] 07/27/2024 Corbin Swanson [facility] [address] [place] [phone] 08/23/2024 oCrbin Swanson [facility] [address] [place] [phone] 09/06/2024 Corbin Swanson [facility] [address] [place] [phone] 10/18/2024 Corbin Swanson [facility] [address] [place] [phone] 05/16/2025 Corbin Swanson Assessments Encounter Date Diagnosis [...] needed We will get copies of the [facility] ER visit in 07/2024 Overall, Samanta's recent [...] Start Date Coverage End Date MEDICARE OF [place] [address] [place] [address] [id number] SAMANTA CABRERA Self - patient is the insured MEDICAID OF [facility] [address] [place] [phone] [id number] SAMANTA CABRERA Self - patient is the insured Medical (General) History Medical History History ICD Code Urinary incontinence Hypertension Denies [place],DM,CVA,Lung disease,renal dise ase Alcohol-induced cirrhosis--n eg. CT of liver in 09/2019 at [facility]--no ascites, no masses---mild splenomgealy, positive varices Trouble walking due to trent ce issues in relation to his subdural hematomas and craniotomies Depression--at [facility] for 2 months 11/2021 to 01/2022; then to rehab until early February GERD/esophagitis--GI bleedin g admission at [facility]---upper endoscopy in 2006 revealed erosive esophagitis and esophageal ulcers while he was actively drinking; a followup endoscopy in 2008 revealed complete healing and no sign of Ac's esophagus Colonoscopies--2014 and [address] [facility]--the 2014 exam was suboptimal due to poor bowel prep; the 2016 exam revealed a small tubular adenoma and small serrated adenoma EGD in 2016 at the [facility] was negative for varices nor significant esophagitis--gastric biopsies were negative for H. pylori Chronic constipation Ischemic colitis in 2021. He had a Flex sig with Dr. Steiner Surgical History Surgery Date(Month/Year) Craniotomy x2 for subdurals 2006 Cholecystectomy 2011 Hernia repair age 4 Umbilical hernia repair 01/12/2020
== END 2025-06-28 09:57 | disposition home or self-care (01) ==
LOC: HO.HUSH 09:38
PROVIDERS: PCP Physician Assistant Medical; Visit Provider Urology
DX: N40.0 Benign prostatic hyperplasia without lower urinary tract symptoms (principal); R33.9 Retention of urine, unspecified
CPT/HCPCS: 99214

== ENCOUNTER → 2025-06-28 09:37 | Outpatient (BNVA) | payer MEDICARE, MEDICAID, SELFPAY | PROVIDERS: PCP Physician Assistant Medical; Visit Provider Urology | DX: N40.0 Benign prostatic hyperplasia without lower urinary tract symptoms (principal); R33.9 Retention of urine, unspecified | CPT/HCPCS: 99212 ==

== ENCOUNTER 2025-07-06 14:06 | Outpatient (AMB) | payer MEDICARE, MEDICAID, SELFPAY ==
--- NOTE | 2025-07-06 14:07 | A.OFFVIS_ITS ---
Intake Visit Reasons: 4wks Intake Note: Patient telehealth for Chronic constipation. Patient cc: no constipation any more, he did 3 form BM today, deniesany other GI issues for today. 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 Allergies fentanyl (FENTANYL) Allergy (Intermediate, Verified 07/06/25 14:07) unknown Medication List - Last Reconciled 07/06/25 by Jimenez Steiner MD acetaminophen 650 mg (2 x 325 mg) PO Q6H PRN alprazolam 0.25 mg PO BID PRN amlodipine 5 mg See Protocol PO DAILY 30 days benztropine 0.5 mg PO TID bethanechol chloride 50 mg PO DAILY capsaicin 0.025% 1 appl topical BEDTIME clotrimazole 1% 1 appl See Protocol topical BEDTIME dextromethorphan-guaifenesin 10-100 mg/5 mL 5 mL PO Q4H PRN 30 days divalproex 500 mg (2 x 250 mg) PO BEDTIME 30 days docusate sodium 100 mg PO DAILY finasteride 1 tab PO DAILY 30 days hydrocortisone 1% 1 appl topical BID PRN hydroxyzine HCl 25 mg PO QID PRN 30 days lemborexant 10 mg PO BEDTIME lidocaine 4% ea topical linaclotide (Linzess) 290 mcg PO QAM 30 days magnesium hydroxide (Milk of Magnesia) 30 mL PO BID PRN 30 days multivitamin 1 tab PO DAILY 30 days naltrexone 50 mg PO DAILY nortriptyline 75 mg PO BEDTIME 30 days nystatin 1 appl See Protocol topical BEDTIME 30 days polyethylene glycol 3350 (HealthyLax) grams PO propranolol 20 mg See Protocol PO TID 30 days psyllium husk (with sugar) 3 gram/7 gram (Reguloid (psyllium husk-sucrose)) PO sennosides (senna) 17.2 mg PO DAILY trazodone 200 mg (2 x 100 mg) PO BEDTIME vortioxetine (Trintellix) 20 mg PO DAILY 30 days HPI HPI 4wks: Details: Telemedicine visit for this 69 YM for FU of dysphagia, colitis and constipation TODAY'S VISIT: Patient cc: Patient cc: no constipation any more, he did 3 form BM today, BMs could not be any better Had an adult sized formed BM at 7 am, a 2nd BM at 9-10 am and 3rd formed BM afte r lunch. Feeling like he could go again. Denies abdominal bloating or distension. Can have intermittent diarrhea - had an episode yesterday. Has not used Miralax in the last few days. Denies fecal accidents - has a BM with some degree of force when he has diarrhea Last episode of diarrhea was on Thursday 69-year-old male presenting with concerns regarding bowel movement irregularities, which have been a persistent issue since he was a teenager. Post recent colonoscopy, the irregularities have continued, presenting with two to three bowel movements daily with a consistency that transitions from soft and formed stools to diarrhea towards the end. He denies any abdominal pain or bleeding and reports that despite the use of Linzess, Colace, and a blood pressure medication, regularity has not been achieved. He expresses awareness that dietary habits influence his symptoms. The patient mentioned that dietary habits play a role in his bowel movements. No specific dietary restrictions were discussed, but he is taking Linzess and Colace as part of his bowel management regimen. The patient did not report any food allergies or significant restrictions affecting his current diet. PAST VISITS: I have been constipated. I am taking the medication as recommended. Just had fecal incontinence while waiting for his appt in the GI clinic Goes to the bathroom and unable to have a BM. Pt is on a regular bowel program and having a BM a few times a day - intermittent complete evacuation BM are unpredictable Pt complains of diarrhea alternating with constipation Turned 69 last fall and has been having GI problems since age 14 yrs. Constipated most of the days - 5 out of 7 days On a regular bowel program with intermittent results sometimes it works wonderfully and sometimes it does not Can have episodes of forceful diarrhea Bowel program consists of: Miralax twice daily Fibre gummies 5 grams - 2 gummies in the evening Colace 100 mg every morning Linzess 145 mcg in the evening Senna 8.6 mg twice a day Also on prn MOM 30 ml twice a day, Senna 8.6 mg once a day and bisacodyl supp 10 mg at bedtime Pt denies smoking and states no ETOH for the past year States dysphagia is not a major problem at present. I am on a plethora of GI medications Is on a regular diet Had an episode of choking during hospitalization and placed on a chopped diet. Does not eat as much and has lost some weight Occasional nausea and vomiting Denies recent black stools or rectal bleeding (occasional bleeding from hemorrhoid). Patient has COPD and denies major cardiac or problems, loud snoring or sleep apnea Had a major brain bleed in May 2007 and treated at [facility] Had his left hip replaced and denies problems with anesthesia in the past. Denies being on chronic anticoagulation. Patient denies known family history of colon polyps, colon cancer or other GI malignancies. No one left in the family - brothers and parents have Ex- and 30 year old son live in [place] Pt lives in a ch[facility] in [place]. LABS IN [facility] : 10/2024 Reviewed IMAGING STUDIES: 07/17/[address] (at [facility]) showed liver cirrhosis without a liver mass or ascites ENDOSCOPIC STUDIES: Last colon 4-[address] Swanson - and per pt polyps were removed. EGD [place] [address] Swanson showed erosive esophagitis, hiatal hernia and gastritis. He was treated with pantoprazole 40 mg twice daily and follow-up EGD showed esophagitis had healed. 09/2022 FLEXIBLE SIGMOIDOSCOPY SHOWED: Edema, erythema, ulcerations with submucosal hemorrhages from 30 to 50 cms suggestive of ischemic colitis - biopsies were obtained No active bleeding noted during examination Moderate diverticulosis seen in the left colon Moderate hemorrhoids on retroflexed exam. Plan: Continue IV antibiotics. Start a clear liquid diet today and advance diet as tolerated. Patient to FU in the GI clinic with Dr Swanson (his primary time study clerk) to discuss outpatient evaluation with an EGD and Colonoscopy. Biopsies showed ischemic colitis. PAST GI HISTORY BY REVIEW OF MEDICAL RECORDS: 09/2022 PATIENT WAS SEEN DURING HOSPITALIZATION AT [facility] Reason for consult: bloody stool- likely hemorrhoid? 67 YM with history of ETOH abuse, anxiety, cognitive and neurobehavioral dysfunction following brain injury, depression, HTN, seizure disorder, history of subdural hematoma, TIA, TBI, seen at [facility] ED on 09/17/22 with abdominal pain, ?? Constipation with bladder and bowel incontinence.? Patient is a vague and a poor historian and stated that he has to strain very hard in order to relieve himself to move his bowels, reports lower abdominal pain, nonradiating, the pain is 8/10, constant for the past month, has difficulty moving his bowels, Pt reported urinary incontinence no urinary urgency dysuria or frequency.? Patient reports that sometimes his stools also watery.? He denies any fever, no chills.? He does complain of bright red blood per rectum. He denies having any shortness of breath although on my exam patient is having significant audible wheezing, denies any orthopnea or PND, no lower extremity edema.? Denies any chest pain.? Patient reports that he drinks a significant amount of wine and liquor 4 to 5 times a week.? He reports that he is feeling like is withdrawing right now. EGD [place] [address] Swanson showed erosive esophagitis, hiatal hernia and gastritis. He was treated with pantoprazole 40 mg twice daily and follow-up EGD showed esophagitis had healed. 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 Per report obtained from ED patient was found by AMS covered in feces.? Noted to have bright blood in feces after having multiple episodes of diarrhea in the ED. On arrival to the ED patient hemodynamically stable no significant abnormal vitals Labs are significant for WBC count of 13.1, hemoglobin of 13, hematocrit 39, potassium of 5.5, creatinine of 2.2 with a baseline of around 1.27, urine positive for leukocyte Estrace and WBC COVID-19 negative, stool occult positive for blood 09/17/[address] SCAN SHOWED: 1.? Findings compatible with colitis involving the distal sigmoid colon. No pneumatosis to suggest specific evidence of ischemic bowel although this possibility cannot be definitively excluded. No evidence of sigmoid diverticulosis to suggest this represents diverticulitis. 2.? No additional acute intra-abdominal process. 3.? Cirrhotic liver morphology. 4.? Multiple chronic appearing lower thoracic and lumbar compression fractures. 5.? 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 Cataracts, bilateral Glaucoma Major depression, recurrent, chronic Sinusitis Aggressive behavior Alcohol use disorder, moderate, dependence TBI (traumatic brain injury) Anxiety TIA (transient ischemic attack) Hypertension Alcohol abuse Subdural hematoma Seizure disorder Depression 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, recurrent severe without psychotic features Major depressive disorder, recurrent HTN (hypertension) Hernia Surgical History Hx of colonoscopy Hx of bilateral cataract extraction History of cholecystectomy H/O craniotomy H/O umbilical hernia repair History of hip replacement S/P cholecystectomy H/O brain surgery Family History Other Family history unobtainable Social History Household Members: None Household Members Other:: resides in chcf Housing: Chcf Housing Other:: resides in chcf Are you a primary long term care phlebotomist to a significant other at home: No Do you presently have visiting nurse or other home services: Yes (chcf staff) Alcohol intake: never Comment: wears shoes Patient Tobacco Use Status: Never used Tobacco e-Cigarette/Vaping Use: Never Used Second Hand Smoke Exposure: No Advance Directives Date on File: 05/27/19 service: No Current occupational status: disabled Sexual orientation: Straight/Heterosexual Telehealth Telehealth Telehealth Platform: Telephone Location of provider rendering services: practice address Location of patient: address on file Patient Identification confirmed using: Name, : Yes Telehealth method: voice only Patient verbally consented to treatment: Yes Patient informed of any privacy concerns related to visit: Yes Minutes spent on Phone/Video with Pt.: 15 Assessment & Plan Assessment & Plan (1) Chronic constipation: Code(s): K59.09 - Other constipation Category: Medical (2) Dysphagia: Code(s): R13.10 - Dysphagia, unspecified Category: Medical (3) History of colon polyps: Code(s): Z86.0100 - Personal history of colon polyps, unspecified Category: Medical Plan 69 YM with history of ETOH abuse, anxiety, cognitive and neurobehavioral dysfunction following brain injury, depression, HTN, seizure disorder, history of subdural hematoma, TIA, TBI, seen during hospitalization at [facility] in Sep, 2022 for abdominal pain, ?? Constipation with bladder and bowel incontinence.? Flexible sigmoidoscopy showed Edema, erythema, ulcerations with submucosal hemorrhages from 30 to 50 cms Biopsies confirmed a diagnosis of ischemic colitis 02/02/25 Pt seen for constipation with intermittent diarrhea (likely paradoxical diarrhea related to constipation) He was advised to increase linaclotide to 290 mcg (from 145 mcg) every morning and continue with the current bowel program. He will be scheduled for a colonoscopy once constipation improves - request sent to the GI instructor adjunct surgical technician. Present Bowel program consists of: Miralax twice daily Fibre gummies 5 grams - 2 gummies in the evening Colace 100 mg every morning Linzess 290 mcg in the evening Senna 8.6 mg twice a day Also on prn MOM 30 ml twice a day prn, Senna 8.6 mg once a day and bisacodyl supp 10 mg at bedtime 05/15/25 colonoscopy showed: Five small to medium sized polyps were removed Moderate diverticulosis seen in the sigmoid colon Moderate hemorrhoids on retroflexed exam. Plan: Repeat Colonoscopy in 1 year if polyps are adenomatous and due to fair prep. BIOPSIES SHOWED: A. Colon, ascending, polypectomies: Fragments of tubular adenomata; negative for high-grade dysplasia or carcinoma. B. Colon, right, biopsy: Melanosis coli; otherwise colonic mucosa within normal limits. C. Colon, transverse, polypectomy: Tubular adenoma; negative for high-grade dysplasia or carcinoma. D. Colon, sigmoid, polypectomy: Fragments of tubular adenoma; negative for high- grade dysplasia or carcinoma Letter sent to the patient with biopsy results. Patient was placed on the colonoscopy recall list for repeat colonoscopy in 1 year. 06/08/25 Pt advised to decreased Miralax to once a day to see if intermittent episodes of diarrhea improve Continue bowel program with Linzess, colace and senna as outlined above 07/06/25 Pt advised to hold off Miralax and continue the rest of the bowel program Keep a log of days that he has episodes of diarrhea If diarrhea persists, can decrease Senna to once a day TV in 4 weeks Coding Level of Care Code Tele Est Pt Level 3 (31432) Diagnoses Chronic constipation K59.09 Dysphagia R13.10 History of colon polyps Z86.0100 Time Spent (min) 15
--- OUTSIDE RECORDS SUMMARY | 2025-07-06 14:15 | XMS_ITS | Clinical Summary ---
Author Organization [address] [facility] Address [address] [place] [address] Phone Care Team Providers Care Coin Machine Assembler Name Role Phone Francie Keith NP [...] (hypertension) 09/27/2024 Hyperlipidemia 09/27/2024 Traumatic brain injury ([facility] V24, [facility] V28 ) 09/27/2024 Alcoholic cirrhosis ([facility] V24, [facility] V28) 1 11/27/2023 Thoracic spine pain 09/27/2024 Secondary parkinsonism ([facility] V24, [facility] V28 ) 09/27/2024 Encounters Date Type Department Care Team Description 07/04/2025 10:00 AM EDT Office Visit Orthopedic Surgery - [address] [place] [phone] Jack Cuevas, DPM Acquired hammer toe of right foot (Primary Dx); Paralyzed hemidiaphragm; Alcoholic peripheral neuropathy ([facility] V24); Primary osteoarthritis of both feet; Pain in toe of left foot; Dermatophytosis of nail; Pain in toe of right foot; Bilateral femoral artery stenosis ([facility] V24) from Last 3 Months Social History Tobacco [...] Care Team (Late st Contact Info) Description 09/06/2025 10:30 AM EDT Office Visit Orthopedic Surgery - [place] [address] [phone] Jack Cuevas, DPM [address] [address] Health Maintenance Due Date Last Done Comments DTaP,Tdap,and Td Vaccines (1 - Tdap) 1974 Cholesterol Screening (Lipid Panel) 12/10/2023 Colorectal Cancer Screening: Colonoscopy 12/10/2023 Falls Risk Assessment 12/10/2023 Hepatitis C Screening 12/10/2023 Medicare Annual Wellness Visit 12/10/2023 Social Influencers of Health Screening 12/10/2023 COVID-19 Vaccine ( - season) 2024 10/29/2023, 08/23/2021, 12/24/2020, Additional history [...] Insurance MEDICARE MEDICAID - [place] Care Teams Coin Machine Assembler Relationship Specialty Start Date End Date Francie Keith NP [address] [place] [phone] PCP - General 05/27/23
--- OUTSIDE RECORDS SUMMARY | 2025-07-06 14:15 | XMS_ITS | Patient Health Record ---
Author Organization [facility] Address [address] [place] [phone] Care Team Providers Care Supervisor Machining Name Role Phone Wilmer Enciso MD Primary Care Provider Unavail able Corbin Swanson Unavailable [phone] Allergies Allergen (clinical drug ingredient) Drug/Non Drug [...] Orall y twice a day Active Nystatin 207427 UNIT/ML 4 mL Mouth/Throa t Four times [...] day(s) Active Hydrocortisone 1 % 1 application Circle Edger ally Once a day Active Ibuprofen 800 MG 1 tablet with food o r milk as needed Orally every 8 hrs Active Guaifenesin DM Cough & Chest Active Bisacodyl Laxative 10 MG 1 suppository a s needed Rectal Once a day for 30 day(s) Active Anusol-HC 2.5 % [address] Edger ally Twice a day Active Artificial Tear [...] Problem Status W/U Status Risk Notes Problem [id number] Encounter for screening for malignant neoplasm of colon (Z12.11) Active confirmed Problem 412362217 History of adenomatous polyp of colon (Z86.010) Active confirmed Problem 779004490 Alcoholic cirrho sis of liver without ascites (K70.30) Active confirmed Problem 925235176 Gastroesophageal reflux disease without esophagitis (K21.9) Active confirmed Problem 60201868 Alcoholic liver disease (K70.9) Active confirmed Problem 05978665 Constipation, unspecified constipation type (K59.00) Active confirmed Problem Acute gastroenteritis (45416341) Acute gastroenteritis (K52.9) Active confirmed Vital Signs Blood pressure diastolic 00 mm Hg 08/25/2024 Height 74 in 08/25/2024 Blood pressure systolic 00 mm Hg 08/25/2024 Weight 230 lbs 08/25/2024 BMI 29.53 kg/m2 08/25/2024 Encounters Encounter Location Date Provider Diagnosis [facility] [address] [place] [phone] 08/25/2024 Corbin Swanson Acute gastroenteriti s K52.9 ; Alcoholic liver disease K70.9 ; Alcoholic cirrhosis of liver without ascites K70.30 and Constipation, unspecified constipation type K59.00 [facility] [address] [place] [phone] 07/27/2024 Corbin Swanson [facility] [address] [place] [phone] 08/23/2024 Corbin Swanson [facility] [address] [place] [phone] 09/06/2024 Corbin Swanson [facility] [address] [place] [phone] 10/18/2024 Corbin Swanson [facility] [address] [place] [phone] 05/16/2025 Corbin Swanson Assessments Encounter Date Diagnosis [...] OF [place] [place] [address] [id number] SAMANTA CABRERA Self - patient is the insured MEDICAID OF [facility] [address] [place] [phone] [id number] SAMANTA CABRERA Self - patient is the insured Medical (General) History Medical History History ICD Code Urinary incontinence Hypertension Denies AL,DM,CVA,Lung disease,renal dise ase Alcohol-induced cirrhosis--n eg. CT of liver in 09/2019 at [facility]--no ascites, no masses---mild splenomgealy, positive varices Trouble walking due to trent ce issues in relation to his subdural hematomas and craniotomies Depression--at [facility] Psych for 2 months 11/2021 to 01/2022; then to rehab until early February GERD/esophagitis--GI bleedin g admission at [facility]---upper endoscopy in 2006 revealed erosive esophagitis and esophageal ulcers while he was actively drinking; a followup endoscopy in 2008 revealed complete healing and no sign of Ac's esophagus Colonoscopies--2014 and 2016 at the [facility]--the 2014 exam was suboptimal due to poor bowel prep; the 2016 exam revealed a small tubular adenoma and small serrated adenoma EGD in 2016 at the [facility] was negative for varices nor significant esophagitis--gastric biopsies were negative for H. pylori Chronic constipation Ischemic colitis in 2021. He had a Flex sig with Dr. Steiner Surgical History Surgery Date(Month/Year) Craniotomy x2 for subdurals 2006 Cholecystectomy 2011 Hernia repair age 4 Umbilical hernia repair 01/12/2020
== END 2025-07-06 14:50 | disposition home or self-care (01) ==
LOC: HO.HGI 14:06
PROVIDERS: PCP Physician Assistant Medical; Visit Provider Internal Medicine Gastroenterology
DX: K59.09 Other constipation (principal); R13.10 Dysphagia, unspecified; Z86.0100 Personal history of colon polyps, unspecified
CPT/HCPCS: 99213

== ENCOUNTER 2025-07-25 10:46 | Outpatient (AMB) | payer MEDICARE, MEDICAID, SELFPAY ==
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
--- OUTSIDE RECORDS SUMMARY | 2025-07-25 12:57 | XMS_ITS | Patient Health Record ---
Author Organization [facility] Address [address] [place] [phone] Care Team Providers Care Scientific Diver Name Role Phone Wilmer Enciso MD Primary Care Provider Unavail able Corbin Swanson Unavailable [phone] Allergies Allergen (clinical drug ingredient) Drug/Non Drug [...] Orall y twice a day Active Nystatin 938268 UNIT/ML 4 mL Mouth/Throa t Four times [...] day(s) Active Hydrocortisone 1 % 1 application Waxer ally Once a day Active Ibuprofen 800 MG 1 tablet with food o r milk as needed Orally every 8 hrs Active Guaifenesin DM Cough & Chest Active Bisacodyl Laxative 10 MG 1 suppository a s needed Rectal Once a day for 30 day(s) Active Anusol-HC 2.5 % 1 application Waxer ally Twice a day Active Artificial Tear [...] Problem Status W/U Status Risk Notes Problem 292635268 Encounter for screening for malignant neoplasm of colon (Z12.11) Active confirmed Problem 391417902 History of adenomatous polyp of colon (Z86.010) Active confirmed Problem 300776111 Alcoholic cirrho sis of liver without ascites (K70.30) Active confirmed Problem 963034095 Gastroesophageal reflux disease without esophagitis (K21.9) Active confirmed Problem 09261769 Alcoholic liver disease (K70.9) Active confirmed Problem 36289446 Constipation, unspecified constipation type (K59.00) Active confirmed Problem Acute gastroenteritis (02825903) Acute gastroenteritis (K52.9) Active confirmed Vital Signs Blood pressure diastolic 00 mm Hg 08/25/2024 Height 74 in 08/25/2024 Blood pressure systolic 00 mm Hg 08/25/2024 Weight 230 lbs 08/25/2024 BMI 29.53 kg/m2 08/25/2024 Encounters Encounter Location Date Provider Diagnosis [facility] [address] [place] [phone] 08/25/2024 Corbin Swanson Acute gastroenteriti s K52.9 ; Alcoholic liver disease K70.9 ; Alcoholic cirrhosis of liver without ascites K70.30 and Constipation, unspecified constipation type K59.00 [facility] [address] [place] [phone] 07/27/2024 Corbin Swanson [facility] [address] [place] [phone] 08/23/2024 Corbin Swanson [facility] [address] [place] [phone] 09/06/2024 Corbin Swanson [facility] [address] [place] [phone] 10/18/2024 Corbin Swanson [facility] [address] [place] [phone] 05/16/2025 Corbin Swanson Assessments Encounter Date Diagnosis [...] OF [address] [place] [address] [id number] SAMANTA CABRERA Self - patient is the insured MEDICAID OF [facility] [address] [place] [phone] [id number] SAMANTA CABRERA Self - patient is the insured Medical (General) History Medical History History ICD Code Urinary incontinence Hypertension Denies HI,DM,CVA,Lung disease,renal dise ase Alcohol-induced cirrhosis--n eg. CT of liver in 09/2019 at [facility]--no ascites, no masses---mild splenomgealy, positive varices Trouble walking due to trent ce issues in relation to his subdural hematomas and craniotomies [place] [facility] [place] 2 months 11/2021 to 01/2022; then to rehab until early February GERD/esophagitis--GI bleedin g [place] [facility]upper endoscopy in 2006 revealed erosive esophagitis and esophageal ulcers while he was actively drinking; a followup endoscopy in 2008 revealed complete healing and no sign of Ac's esophagus Colonoscopies--2014 and 2016 at the [facility]--the 2014 exam was suboptimal due to poor bowel prep; the 2016 exam revealed a small tubular adenoma and small serrated adenoma EGD in 2016 at the [facility] was negative for varices nor significant esophagitis--gastric biopsies were negative for H. pylori Chronic constipation Ischemic colitis in 2021. He had a Flex sig with Dr. Steiner Surgical History Surgery Date(Month/Year) Craniotomy x2 for subdurals 2006 Cholecystectomy 2011 Hernia repair age 4 Umbilical hernia repair 01/12/2020
--- OUTSIDE RECORDS SUMMARY | 2025-07-25 12:57 | XMS_ITS | Clinical Summary ---
Author Organization [facility] Address [address] [place] [address] Phone Care Team Providers Care Manager Technical Sales Name Role Phone Francie Keith NP Primary [...] (hypertension) 09/27/2024 Hyperlipidemia 09/27/2024 Traumatic brain injury ([facility] V24, [facility] V28 ) 09/27/2024 Alcoholic cirrhosis ([facility] V24, [facility] V28) 1 11/27/2023 Thoracic spine pain 09/27/2024 Secondary parkinsonism ([facility] V24, [facility] V28 ) 09/27/2024 Encounters Date Type Department Care Team Description 07/04/2025 10:00 AM EDT Office Visit Orthopedic Surgery - [address] [place] [phone] Jack Cuevas, DPM Acquired hammer toe of right foot (Primary Dx); Paralyzed hemidiaphragm; Alcoholic peripheral neuropathy ([facility] V24); Primary osteoarthritis of both feet; Pain in toe of left foot; Dermatophytosis of nail; Pain in toe of right foot; Bilateral femoral artery stenosis ([facility] V24) from Last 3 Months Social History [...] AM EDT Office Visit Orthopedic Surgery - [place] [address] [address] [phone] Jack Cuevas, DPM [address] [phone] Health Maintenance Due Date Last Done Comments DTaP,Tdap,and Td Vaccines (1 - Tdap) 1974 Cholesterol Screening (Lipid Panel) 12/10/2023 Colorectal Cancer Screening: Colonoscopy 12/10/2023 Falls Risk Assessment 12/10/2023 Hepatitis C Screening 12/10/2023 Medicare Annual Wellness Visit 12/10/2023 Social Influencers of Health Screening 12/10/2023 Hypertension/CHF/CAD Annual BMP Blood Test 09/28/2024 Hepatitis B Vaccines (2 of 3 - Hep B Twinrix 3-dose series) 10/06/2024 09/08/2024 Depression Screening 11/16/2024 COVID-19 Vaccine ( - season) 2025 10/29/2023, 08/23/2021, 12/24/2020, Additional history exists Influenza Vaccine (#1) 2025 , 10/29/2023, 08/18/2022, [...] MEDICARE MEDICAID - [place] Care Teams Manager Technical Sales Relationship Specialty Start Date End Date Francie Keith, [employer] [address] [place] [phone] PCP - General 05/27/23
== END 2025-07-25 10:59 | disposition home or self-care (01) ==
LOC: HO.HOP 10:46
PROVIDERS: PCP Physician Assistant Medical; Visit Provider Psychiatry & Neurology Psychiatry
DX: F33.1 Major depressive disorder, recurrent, moderate (principal); G31.89 Other specified degenerative diseases of nervous system; F09 Unspecified mental disorder due to known physiological condition; S06.9X9S Unspecified intracranial injury with loss of consciousness of unspecified duration, sequela
CPT/HCPCS: 99214

== ENCOUNTER → 2025-07-25 10:46 | Outpatient (BNVA) | payer MEDICARE, MEDICAID, SELFPAY | PROVIDERS: PCP Physician Assistant Medical; Visit Provider Psychiatry & Neurology Psychiatry | DX: G31.89 Other specified degenerative diseases of nervous system (principal); F09 Unspecified mental disorder due to known physiological condition; S06.9X9S Unspecified intracranial injury with loss of consciousness of unspecified duration, sequela; F33.9 Major depressive disorder, recurrent, unspecified | CPT/HCPCS: 99212 ==

== ENCOUNTER 2025-07-27 08:32 | Outpatient (AMB) | payer MEDICARE, MEDICAID, SELFPAY ==
--- NOTE | 2025-07-27 08:33 | A.OFFVIS_ITS ---
Intake Visit Reasons: follow up chronic constipation Intake Note: Patient telehealth follow up for follow up chronic constipation Patient cc: chronic constipation with one episode of bright red bloody BM. Pulper Operator Required: No Allergies fentanyl (FENTANYL) Allergy (Intermediate, Verified 07/27/25 08:33) unknown HPI HPI follow up chronic constipation: Details: Telemedicine visit for this 69 YM for FU of dysphagia, colitis and constipation TODAY'S VISIT: Patient cc: Patient telehealth follow up for follow up chronic constipation chronic constipation with one episode of bright red bloody BM. I have been having a difficult time with my stool Stool is rock hard and takes several minutes to pass the stool Stool sinks to the bottom of the toilet bowl and is followed by another stool. I sit on the commode and cry - its hurts so much There is some BRB with BMs Patient cc: no constipation any more, he did 3 form BM today, BMs could not be any better Had an adult sized formed BM at 7 am, a 2nd BM at 9-10 am and 3rd formed BM after lunch. Feeling like he could go again. Denies abdominal bloating or distension. Can have intermittent diarrhea - had an episode yesterday. Has not used Miralax in the last few days. Denies fecal accidents - has a BM with some degree of force when he has diarrhea Last episode of diarrhea was on Thursday 69-year-old male presenting with concerns regarding bowel movement irregularities, which have been a persistent issue since he was a teenager. Post recent colonoscopy, the irregularities have continued, presenting with two to three bowel movements daily with a consistency that transitions from soft and formed stools to diarrhea towards the end. He denies any abdominal pain or bleeding and reports that despite the use of Linzess, Colace, and a blood pressure medication, regularity has not been achieved. He expresses awareness that dietary habits influence his symptoms. The patient mentioned that dietary habits play a role in his bowel movements. No specific dietary restrictions were discussed, but he is taking Linzess and Colace as part of his bowel management regimen. The patient did not report any food allergies or significant restrictions affecting his current diet. PAST VISITS: I have been constipated. I am taking the medication as recommended. Just had fecal incontinence while waiting for his appt in the GI clinic Goes to the bathroom and unable to have a BM. Pt is on a regular bowel program and having a BM a few times a day - intermittent complete evacuation BM are unpredictable Pt complains of diarrhea alternating with constipation Turned 69 last fall and has been having GI problems since age 14 yrs. Constipated most of the days - 5 out of 7 days On a regular bowel program with intermittent results sometimes it works wonderfully and sometimes it does not Can have episodes of forceful diarrhea Bowel program consists of: Miralax twice daily Fibre gummies 5 grams - 2 gummies in the evening Colace 100 mg every morning Linzess 145 mcg in the evening Senna 8.6 mg twice a day Also on prn MOM 30 ml twice a day, Senna 8.6 mg once a day and bisacodyl supp 10 mg at bedtime Pt denies smoking and states no ETOH for the past year States dysphagia is not a major problem at present. I am on a plethora of GI medications Is on a regular diet Had an episode of choking during hospitalization and placed on a chopped diet. Does not eat as much and has lost some weight Occasional nausea and vomiting Denies recent black stools or rectal bleeding (occasional bleeding from hemorrhoid). Patient has COPD and denies major cardiac or problems, loud snoring or sleep apnea Had a major brain bleed in May 2007 and treated at [facility] Had his left hip replaced and denies problems with anesthesia in the past. Denies being on chronic anticoagulation. Patient denies known family history of colon polyps, colon cancer or other GI malignancies. No one left in the family - brothers and parents have Ex- and 30 year old son live in [place] Pt lives in a [facility] in [place]. LABS IN [facility] : 10/2024 Reviewed IMAGING STUDIES: 07/17/[address] (at [facility]) showed liver cirrhosis without a liver mass or ascites ENDOSCOPIC STUDIES: Last colon 4-[address] Swanson - and per pt polyps were removed. EGD [place] [address] Swanson showed erosive esophagitis, hiatal hernia and gastritis. He was treated with pantoprazole 40 mg twice daily and follow-up EGD showed es ophagitis had healed. 09/2022 FLEXIBLE SIGMOIDOSCOPY SHOWED: Edema, erythema, ulcerations with submucosal hemorrhages from 30 to 50 cms suggestive of ischemic colitis - biopsies were obtained No active bleeding noted during examination Moderate diverticulosis seen in the left colon Moderate hemorrhoids on retroflexed exam. Plan: Continue IV antibiotics. Start a clear liquid diet today and advance diet as tolerated. Patient to FU in the GI clinic with Dr Swanson (his primary associate professor of sociology) to discuss outpatient evaluation with an EGD and Colonoscopy. Biopsies showed ischemic colitis. PAST GI HISTORY BY REVIEW OF MEDICAL RECORDS: 09/2022 PATIENT WAS SEEN DURING HOSPITALIZATION AT [facility] Reason for consult: bloody stool- likely hemorrhoid? 67 YM with history of ETOH abuse, anxiety, cognitive and neurobehavioral dysfunction following brain injury, depression, HTN, seizure disorder, history of subdural hematoma, TIA, TBI, seen at [facility] ED on 09/17/22 with abdominal pain, ?? Constipation with bladder and bowel incontinence.? Patient is a vague and a poor historian and stated that he has to strain very hard in order to relieve himself to move his bowels, reports lower abdominal pain, nonradiating, the pain is 8/10, constant for the past month, has difficulty moving his bowels, Pt reported urinary incontinence no urinary urgency dysuria or frequency.? Patient reports that sometimes his stools also watery.? He denies any fever, no chills.? He does complain of bright red blood per rectum. He denies having any shortness of breath although on my exam patient is having significant audible wheezing, denies any orthopnea or PND, no lower extremity edema.? Denies any chest pain.? Patient reports that he drinks a significant amount of wine and liquor 4 to 5 times a week.? He reports that he is feeling like is withdrawing right now. [place] [address] Swanson showed erosive esophagitis, hiatal hernia and gastritis. He was treated with pantoprazole 40 mg twice daily and follow-up EGD showed esophagitis had healed. 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 Per report obtained from ED patient was found by [facility] covered in feces.? Noted to have bright blood in feces after having multiple episodes of diarrhea in the ED. On arrival to the ED patient hemodynamically stable no significant abnormal vitals Labs are significant for WBC count of 13.1, hemoglobin of 13, hematocrit 39, potassium of 5.5, creatinine of 2.2 with a baseline of around 1.27, urine positive for leukocyte Estrace and WBC COVID-19 negative, stool occult positive for blood 09/17/[address] SCAN SHOWED: 1.? Findings compatible with colitis involving the distal sigmoid colon. No pneumatosis to suggest specific evidence of ischemic bowel although this possibility cannot be definitively excluded. No evidence of sigmoid diverticulosis to suggest this represents diverticulitis. 2.? No additional acute intra-abdominal process. 3.? Cirrhotic liver morphology. 4.? Multiple chronic appearing lower thoracic and lumbar compression fractures. 5.? Additional ancillary findings, as described [facility] Medical History History of electroconvulsive therapy Inflammatory disorders of scrotum Chronic obstructive pulmonary disease, unspecified Secondary parkinsonism, unspecified Hypothyroidism, unspecified Thrombocytopenia, unspecified Acute insomnia Intermittent urinary incontinence BPH (benign prostatic hyperplasia) Resides in senior care care facility Cataracts, bilateral Glaucoma Major depression, recurrent, chronic Sinusitis Aggressive behavior Alcohol use disorder, moderate, dependence TBI (traumatic brain injury) Anxiety TIA (transient ischemic attack) Hypertension Alcohol abuse Subdural hematoma Seizure disorder Depression 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, recurrent severe without psychotic features Major depressive disorder, recurrent HTN (hypertension) Hernia Surgical History Hx of colonoscopy Hx of bilateral cataract extraction History of cholecystectomy H/O craniotomy H/O umbilical hernia repair History of hip replacement S/P cholecystectomy H/O brain surgery Family History Other Family history unobtainable Social History Household Members: None Household Members Other:: resides in [facility] Housing: [facility] Housing Other:: resides in [facility] Are you a primary critical care physician to a significant other at home: No Do you presently have visiting nurse or other home services: Yes ([facility] staff) Alcohol intake: never Comment: wears shoes Patient Tobacco Use Status: Never used Tobacco e-Cigarette/Vaping Use: Never Used Second Hand Smoke Exposure: No Advance Directives Date on File: 05/27/19 service: No Current occupational status: disabled Sexual orientation: Straight/Heterosexual Telehealth Telehealth Telehealth Platform: Telephone Location of provider rendering services: practice address Location of patient: address on file Patient Identification confirmed using: Name, : Yes Telehealth method: voice only Patient verbally consented to treatment: Yes Patient verbally consented to billing insurance company: Yes Patient informed of any privacy concerns related to visit: Yes Minutes spent on Phone/Video with Pt.: 10 Assessment & Plan Assessment & Plan (1) Chronic constipation: Code(s): K59.09 - Other constipation Category: Medical (2) Dysphagia: Code(s): R13.10 - Dysphagia, unspecified Category: Medical (3) History of colon polyps: Code(s): Z86.0100 - Personal history of colon polyps, unspecified Category: Medical Plan 69 YM with history of ETOH abuse, anxiety, cognitive and neurobehavioral dysfunction following brain injury, depression, HTN, seizure disorder, history of subdural hematoma, TIA, TBI, seen during hospitalization at [facility] in Sep, 2022 for abdominal pain, ?? Constipation with bladder and bowel incontinence.? Flexible sigmoidoscopy showed Edema, erythema, ulcerations with submucosal hemorrhages from 30 to 50 cms Biopsies confirmed a diagnosis of ischemic colitis 02/02/25 Pt seen for constipation with intermittent diarrhea (likely paradoxical diarrhea related to constipation) He was advised to increase linaclotide to 290 mcg (from 145 mcg) every morning and continue with the current bowel program. He will be scheduled for a colonoscopy once constipation improves - request sent to the GI surgical endoscopist. Present Bowel program consists of: Miralax twice daily Fibre gummies 5 grams - 2 gummies in the evening Colace 100 mg every morning Linzess 290 mcg in the evening Senna 8.6 mg twice a day Also on prn MOM 30 ml twice a day prn, Senna 8.6 mg once a day and bisacodyl supp 10 mg at bedtime 05/15/25 colonoscopy showed: Five small to medium sized polyps were removed Moderate diverticulosis seen in the sigmoid colon Moderate hemorrhoids on retroflexed exam. Plan: Repeat Colonoscopy in 1 year if polyps are adenomatous and due to fair prep. BIOPSIES SHOWED: A. Colon, ascending, polypectomies: Fragments of tubular adenomata; negative for high-grade dysplasia or carcinoma. B. Colon, right, biopsy: Melanosis coli; otherwise colonic mucosa within normal limits. C. Colon, transverse, polypectomy: Tubular adenoma; negative for high-grade dysplasia or carcinoma. D. Colon, sigmoid, polypectomy: Fragments of tubular adenoma; negative for high- grade dysplasia or carcinoma Letter sent to the patient with biopsy results. Patient was placed on the colonoscopy recall list for repeat colonoscopy in 1 year. 06/08/25 Pt advised to decreased Miralax to once a day to see if intermittent episodes of diarrhea improve Continue bowel program with Linzess, colace and senna as outlined above 07/06/25 Pt advised to hold off Miralax and continue the rest of the bowel program Keep a log of days that he has episodes of diarrhea If diarrhea persists, can decrease Senna to once a day 07/27/25 Pt advised to take a fleet enema today Resume Miralax twice daily x 3 days and then take once a day Continue the remaining bowel program TV in 4 weeks Coding Level of Care Code Tele Est Pt Level 2 (23817) Diagnoses Chronic constipation K59.09 Dysphagia R13.10 History of colon polyps Z86.0100 Time Spent (min) 10
--- OUTSIDE RECORDS SUMMARY | 2025-07-27 09:35 | XMS_ITS | Clinical Summary ---
Author Organization [address] [facility] Address [address] [place] [address] Phone Care Team Providers Care Clinical Research Analyst Name Role Phone Francie Keith NP Primary [...] Traumatic brain injury ([facility] V24, [facility] V28 ) 09/27/2024 Alcoholic cirrhosis ([facility] V24, [facility] V28) 1 11/27/2023 Thoracic spine pain 09/27/2024 Secondary parkinsonism ([facility] V24, [facility] V28 ) 09/27/2024 Encounters Date Type Department Care Team Description 07/04/2025 10:00 AM EDT Office Visit Orthopedic Surgery - [address] [place] [phone] Jack Cuevas, DPM Acquired hammer toe of right foot (Primary Dx); Paralyzed hemidiaphragm; Alcoholic peripheral neuropathy ([facility] V24); Primary osteoarthritis of both feet; Pain in toe of left foot; Dermatophytosis of nail; Pain in toe of right foot; Bilateral femoral artery stenosis ([facility] V24) from Last 3 Months Social History [...] AM EDT Office Visit Orthopedic Surgery - [place] [id number] [phone] Jack Cuevas, DPM [address] [phone] Health Maintenance Due Date Last [...] Insurance MEDICARE MEDICAID - [place] Care Teams Clinical Research Analyst Relationship Specialty Start Date End Date Francie Keith, CHAR CONVEYOR TENDER [employer]AR [address] [place] [phone] PCP - General 05/27/23
--- OUTSIDE RECORDS SUMMARY | 2025-07-27 09:35 | XMS_ITS | Patient Health Record ---
Author Organization [facility] Address [address] [place] [phone] Care Team Providers Care Traffic Workforce Representative Name Role Phone Wilmer Enciso MD Primary Care Provider Unavail able Corbin Swanson Unavailable [phone] Allergies Allergen (clinical drug ingredient) Drug/Non Drug [...] Orall y twice a day Active Nystatin 317323 UNIT/ML 4 mL Mouth/Throa t Four times [...] day(s) Active Hydrocortisone 1 % 1 application Drum Stock Clerk ally Once a day Active Ibuprofen 800 MG 1 tablet with food o r milk as needed Orally every 8 hrs Active Guaifenesin DM Cough & Chest Active Bisacodyl Laxative 10 MG 1 suppository a s needed Rectal Once a day for 30 day(s) Active Anusol-HC 2.5 % 1 application Drum Stock Clerk ally Twice a day Active Artificial [...] Problem Status W/U Status Risk Notes Problem [id number] Encounter for screening for malignant neoplasm of colon (Z12.11) Active confirmed Problem [id number] History of adenomatous polyp of colon (Z86.010) Active confirmed Problem 814046106 Alcoholic cirrho sis of liver without ascites (K70.30) Active confirmed Problem 018375713 Gastroesophageal reflux disease without esophagitis (K21.9) Active confirmed Problem 64982974 Alcoholic liver disease (K70.9) Active confirmed Problem 54548220 Constipation, unspecified constipation type (K59.00) Active confirmed Problem Acute gastroenteritis (32249123) Acute gastroenteritis (K52.9) Active confirmed Vital Signs Blood pressure diastolic 00 mm Hg 08/25/2024 Height 74 in 08/25/2024 Blood pressure systolic 00 mm Hg 08/25/2024 Weight 230 lbs 08/25/2024 BMI 29.53 kg/m2 08/25/2024 Encounters Encounter Location Date Provider Diagnosis [facility] [address] [place] [phone] 08/25/2024 Corbin Swanson Acute gastroenteriti s K52.9 ; Alcoholic liver disease K70.9 ; Alcoholic cirrhosis of liver without ascites K70.30 and Constipation, unspecified constipation type K59.00 [facility] [address] [place] [phone] 07/27/2024 Corbin Swanson [facility] [address] [place] [phone] 08/23/2024 Corbin Swanson [facility] [address] [place] [phone] 09/06/2024 Corbin Swanson [facility] [address] [place] [phone] 10/18/2024 Corbin Swanson [facility] [address] [place] [phone] 05/16/2025 Corbin Swanson Assessments Encounter Date Diagnosis [...] OF [place] [place] [address] [id number] SAMANTA CABRERA Self - patient is the insured MEDICAID OF [facility] [address] [place] [address] [id number] SAMANTA CABRERA Self - patient is the insured Medical (General) History Medical History History ICD Code Urinary incontinence Hypertension Denies CO,DM,CVA,Lung disease,renal dise ase Alcohol-induced cirrhosis--n eg. CT of liver in 09/2019 at [facility]--no ascites, no masses---mild splenomgealy, positive varices Trouble walking due to trent ce issues in relation to his subdural hematomas and craniotomies Depression--at [facility] for 2 months 11/2021 to 01/2022; then to rehab until early February GERD/esophagitis--GI bleedin g admission at [facility]---upper endoscopy in 2006 revealed erosive esophagitis and esophageal ulcers while he was actively drinking; a followup endoscopy in 2008 revealed complete healing and no sign of Ac's esophagus Colonoscopies--2014 and 2016 at the [facility]--the 2014 exam was suboptimal due to [...]
== END 2025-07-27 09:08 | disposition home or self-care (01) ==
LOC: HO.HGI 08:32
PROVIDERS: PCP Physician Assistant Medical; Visit Provider Internal Medicine Gastroenterology
DX: K59.09 Other constipation (principal); R13.10 Dysphagia, unspecified; Z86.0100 Personal history of colon polyps, unspecified
CPT/HCPCS: 99212

== ENCOUNTER 2025-08-22 11:06 | Outpatient (AMB) | payer MEDICARE, MEDICAID, SELFPAY ==
[2025-08-22 11:07] VITALS: BP 132/80; PULSE 80; O2SAT 94
--- NOTE | 2025-08-22 11:07 | MHC.OFFVIS ---
Vital Signs 08/22/25 11:07 Height 6 ft 2 in BMI Reason not done Patient refused/unable BP 132/80 Blood Pressure Location Rt brachial Position Sitting Pulse 80 Pulse Source Pulse Oximeter Pulse Oximetry (%) 94 Oxygen Delivery Method Room Air Intake Visit Reasons: Cough Allergies fentanyl (FENTANYL) Allergy (Intermediate, Verified 08/22/25 11:12) unknown HPI HPI Cough: Details: Samanta is a pleasant 70 year male, never smoker, with underlying TBI with cognitive and neurobehavioral dysfunction, seizure disorder, TIA, subdural hematoma, depression, hypertension, anxiety, alcohol use disorder. He was initially referred by PCP for pulmonary evaluation for chronic cough. He is wheelchair bound and resides at a [facility]ci, accompanied by staff member who is in waiting room. He previously reported productive cough since Thanksgiving with associated chest congestion, and dyspnea with minimal exertion. He denies fevers or chills. He was treated with Augmentin and reports complete resolution of symptoms. He also had chest CT 02/2025 which was unremarkable. We previously discussed likelihood of dysphagia contributing to cough however he denies any symptoms with eating/drinking. He reports eating small meals, slowly and aware of prior MBSS revealing laryngeal penetration on several occasions but no laryngeal aspiration as well as mild retention of solid food which cleared with subsequent oral administration of water or thin barium. It was recommended by speech therapist recommended chopped diet, pills in puree as well as no straws however he continues to be following a regular diet since MBSS. At this time, he reports cough is intermittent denies dyspnea, chest tightness or wheezing. Denies any visits to urgent care or hospitalizations related to respiratory distress. COUNT INCLUDES THE [facility] Medical History History of electroconvulsive therapy Inflammatory disorders of scrotum Chronic obstructive pulmonary disease, unspecified Secondary parkinsonism, unspecified Hypothyroidism, unspecified Thrombocytopenia, unspecified Acute insomnia Intermittent urinary incontinence BPH (benign prostatic hyperplasia) Resides in nursing home care facility Cataracts, bilateral Glaucoma Major depression, recurrent, chronic Sinusitis Aggressive behavior Alcohol use disorder, moderate, dependence TBI (traumatic brain injury) Anxiety TIA (transient ischemic attack) Hypertension Alcohol abuse Subdural hematoma Seizure disorder Depression 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, recurrent severe without psychotic features Major depressive disorder, recurrent HTN (hypertension) Hernia Surgical History Hx of colonoscopy Hx of bilateral cataract extraction History of cholecystectomy H/O craniotomy H/O umbilical hernia repair History of hip replacement S/P cholecystectomy H/O brain surgery Family History Other Family history unobtainable Social History Household Members: None Household Members Other:: resides in fci Housing: Skilled Nursing Housing Other:: resides in fci Are you a primary personal care aide to a significant other at home: No Do you presently have visiting nurse or other home services: Yes (fci staff) Alcohol intake: never Comment: wears shoes Patient Tobacco Use Status: Never used Tobacco e-Cigarette/Vaping Use: Never Used Second Hand Smoke Exposure: No Advance Directives Date on File: 05/27/19 service: No Current occupational status: disabled Sexual orientation: Straight/Heterosexual Review of Systems Const Denies chills, Denies excessive sweating, Denies fever(s), Denies headache(s) and Denies night sweats Eyes Denies dry eyes, Denies irritation and Denies itchy eyes ENT Reports Normal hearing present, Denies headache(s), Denies nasal congestion, Denies nasal discharge, Denies post nasal drip and Denies sore throat Card Denies chest pain, Denies chest pain at rest, Denies chest pain with activity, Denies claudication, Denies leg edema, Denies dyspnea on exertion, Denies orthopnea and Denies paroxysmal nocturnal dyspnea Resp Denies change in phlegm color, Denies chest congestion, Denies hemoptysis, Denies pain on inspiration, Denies pain with cough, Denies dyspnea on exertion, Denies stridor and Denies wheezing Musc Denies myalgias Neuro Reports Normal hearing present and Denies headache(s) Endo Denies excessive sweating Stalin/Lymph Denies lymphadenopathy Aller/Immun Denies itchy eyes, Denies seasonal rhinorrhea and Denies wheezing Physical Exam Vital Signs: Last Vital Signs Pulse 80 08/22/25 11:07 BP 132/80 08/22/25 11:07 Pulse Ox 94 08/22/25 11:07 Oxygen Delivery Method Room Air 08/22/25 11:07 Const General: no acute distress Nutritional Appearance: overweight Orientation/consciousness: patient oriented x3 Limitations: wheelchair HEENT Head: Yes normal to inspection Ears: hearing grossly normal bilaterally Eyes Sclerae: sclerae normal Neck Neck: Yes normal visual inspection Lymphatic: no lymphadenopathy noted Chest Chest palpation & inspection: normal inspection of the chest Resp Effort & Inspection: normal respiratory effort, able to speak in complete sentences, no audible wheezes, no cough, no stridor, not tachypneic, no tripod positioning and no use of accessory muscles Auscultation: clear to auscultation bilaterally Cardio Jugular venous distension: no JVD Rate: regular rate Rhythm: regular rhythm Skin Other: warm, dry General skin exam: no rashes or lesions noted Neuro General: patient oriented x3, gait normal and moves all extremities Cranial nerves: Yes Normal hearing present Cognition (Neuro): normal cognition Extrem General: Yes normal to inspection, Yes capillary refill normal, Yes no clubbing, cyanosis or edema and Yes no pedal edema Psych Appearance: grossly normal Mental Status: mental status grossly normal Speech and movement: Normal speech and movement present and Slowed speech present (Psych) Attitude: cooperative Thought process: Normal thought process present Thought content: Normal thought content present Insight: Good insight present (Psych) Judgement: Good judgement present (Psych) Assessment & Plan Assessment & Plan (1) Cough: Code(s): R05.9 - Cough, unspecified Category: Medical (2) Dysphagia: Code(s): R13.10 - Dysphagia, unspecified Category: Medical (3) History of traumatic brain injury: Code(s): Z87.820 - Personal history of traumatic brain injury Category: Medical Plan At this time patient reports intermittent cough with no signs of infectious symptoms. He is aware to call if symptoms change. We again discussed symptoms are possibly related to aspiration secondary to dysphagia, aware of recommendations from prior MBSS however continues to follow regular diet. Discussed importance of following previously recommended diet changes to avoid recurrent aspiration. All questions were answered and patient is in agreement of plan. Will follow up in 3-6 months or sooner if needed. Coding Level of Care Code Est Pt Level 4 (14912) Diagnoses Cough R05.9 Dysphagia R13.10 History of traumatic brain injury Z87.820
--- OUTSIDE RECORDS SUMMARY | 2025-08-22 13:49 | XMS_ITS | Clinical Summary ---
Author Organization 175 [facility] Address [address] [place] [address] Phone Care Team Providers Care Facilities Engineering Manager Name Role Phone Francie Keith NP Primary [...] (hypertension) 09/27/2024 Hyperlipidemia 09/27/2024 Traumatic brain injury ([facility] V24, [facility] V28 ) 09/27/2024 Alcoholic cirrhosis ([facility] V24, [facility] V28) 1 11/27/2023 Thoracic spine pain 09/27/2024 Secondary parkinsonism ([facility] V24, [facility] V28 ) 09/27/2024 Encounters Date Type Department Care Team Description 07/04/2025 10:00 AM EDT Office Visit Orthopedic Surgery - [address] [place] [phone] Jack Cuevas, DPM Acquired hammer toe of right foot (Primary Dx); Paralyzed hemidiaphragm; Alcoholic peripheral neuropathy ([facility] V24); Primary osteoarthritis of both feet; Pain in toe of left foot; Dermatophytosis of nail; Pain in toe of right foot; Bilateral femoral artery stenosis ([facility] V24) from Last 3 Months [...] AM EDT Office Visit Orthopedic Surgery - [place] [address] [address] Jack Cuevas, DPM [address] [address] Health Maintenance Due Date Last Done Comments Colorectal Cancer Screening: Colonoscopy 1954 DTaP,Tdap,and Td Vaccines (1 - Tdap) 1973 Cholesterol Screening (Lipid Panel) 12/10/2023 Falls Risk Assessment 12/10/2023 Hepatitis C [...] Insurance MEDICARE MEDICAID - [place] Care Teams Facilities Engineering Manager Relationship Specialty Start Date End Date Francie Keith, SOLE BUFFER [address] [place] [phone] PCP - General 05/27/23
--- OUTSIDE RECORDS SUMMARY | 2025-08-22 13:49 | XMS_ITS | Patient Health Record ---
Author Organization [facility] Address [address] [place] [phone] Care Team Providers Care Supervisor Sewing Room Name Role Phone Wilmer Enciso MD Primary Care Provider Unavail able Corbin Swanson Unavailable [phone] Allergies Allergen (clinical drug ingredient) Drug/Non Drug [...] Orall y twice a day Active Nystatin 836857 UNIT/ML 4 mL Mouth/Throa t Four times [...] day(s) Active Hydrocortisone 1 % 1 application Gear Machine Operator General ally Once a day Active Ibuprofen 800 MG 1 tablet with food o r milk as needed Orally every 8 hrs Active Guaifenesin DM Cough & Chest Active Bisacodyl Laxative 10 MG 1 suppository a s needed Rectal Once a day for 30 day(s) Active Anusol-HC 2.5 % 1 application Gear Machine Operator General ally Twice a day Active Artificial Tear [...] Problem Status W/U Status Risk Notes Problem [id number] Encounter for screening for malignant neoplasm of colon (Z12.11) Active confirmed Problem 683202487 History of adenomatous polyp of colon (Z86.010) Active confirmed Problem 160843213 Alcoholic cirrho sis of liver without ascites (K70.30) Active confirmed Problem 460431544 Gastroesophageal reflux disease without esophagitis (K21.9) Active confirmed Problem 52426541 Alcoholic liver disease (K70.9) Active confirmed Problem 80536180 Constipation, unspecified constipation type (K59.00) Active confirmed Problem Acute gastroenteritis (13005222) Acute gastroenteritis (K52.9) Active confirmed Vital Signs Blood pressure diastolic 00 mm Hg 08/25/2024 Height 74 in 08/25/2024 Blood pressure systolic 00 mm Hg 08/25/2024 Weight 230 lbs 08/25/2024 BMI 29.53 kg/m2 08/25/2024 Encounters Encounter Location Date Provider Diagnosis [facility] [address] [place] [phone] 08/25/2024 Corbin Sky Acute gastroenteriti s K52.9 ; Alcoholic liver disease K70.9 ; Alcoholic cirrhosis of liver without ascites K70.30 and Constipation, unspecified constipation type K59.00 [facility] [address] [place] [phone] 08/23/2024 Corbin Swanson [facility] [address] [place] [phone] 09/06/2024 Corbin Swanson [facility] [address] [place] [phone] 10/18/2024 Corbin Swanson [facility] [address] [place] [phone] 05/16/2025 Corbin Swanson Assessments Encounter Date Diagnosis [...] Start Date Coverage End Date [place] OF [place] [address] [place] [address] [id number] SAMANTA CABRERA Self - patient is the insured MEDICAID OF [facility] [address] [place] [phone] [id number] SAMANTA CABRERA Self - patient is the insured Medical (General) History Medical History History ICD Code Urinary incontinence Hypertension Denies VT,DM,CVA,Lung disease,renal dise ase Alcohol-induced cirrhosis--n eg. CT of liver in 09/2019 at [facility]--no ascites, no masses---mild splenomgealy, positive varices Trouble walking due to trent ce issues in relation to his subdural hematomas and craniotomies Depression--at [facility] for 2 months 11/2021 to 01/2022; then to rehab until early February GERD/esophagitis--GI bleedin g admission at [facility]---upper endoscopy in 2006 revealed erosive esophagitis and esophageal ulcers while he was actively drinking; a followup endoscopy in 2008 revealed complete healing and no sign of Ac's esophagus Colonoscopies--2014 and 2016 at the [facility]--the 2014 exam was suboptimal due to poor bowel prep; the 2016 exam revealed a small tubular adenoma and small serrated adenoma EGD in 2016 at the [facility] was negative for varices nor significant esophagitis--gastric biopsies were negative for H. pylori Chronic constipation Ischemic colitis in 2021. He had a Flex sig with Dr. Steiner Surgical History Surgery Date(Month/Year) Craniotomy x2 for subdurals 2006 Cholecystectomy 2011 Hernia repair age 4 Umbilical hernia repair 01/12/2020
== END 2025-08-22 11:48 | disposition home or self-care (01) ==
LOC: HO.HPSW 11:06
PROVIDERS: PCP Physician Assistant Medical; Visit Provider Nurse Practitioner Family
DX: R05.9 Cough, unspecified (principal); R13.10 Dysphagia, unspecified; Z87.820 Personal history of traumatic brain injury
CPT/HCPCS: 99214

== ENCOUNTER → 2025-08-22 11:06 | Outpatient (BNVA) | payer MEDICARE, MEDICAID, SELFPAY | PROVIDERS: PCP Physician Assistant Medical; Visit Provider Nurse Practitioner Family | DX: R05.9 Cough, unspecified (principal); R13.10 Dysphagia, unspecified; Z87.820 Personal history of traumatic brain injury | CPT/HCPCS: 99212 ==

== ENCOUNTER 2025-09-26 12:54 | Outpatient (REF) | payer MEDICARE, MEDICAID, SELFPAY ==
--- NOTE | ~2025-09-26 | US_ITS ---
EXAMINATION: US PELVIC SOFT TISSUE., LIMITED/FOLLOW UP CLINICAL INFORMATION: Right inguinal hernia. COMPARISON: Correlated to CT abdomen and pelvis dated September 2022. TECHNIQUE: Real-time ultrasound of the region of concern in the right inguinal region using a linear transducer with grayscale and color Doppler technique. FINDINGS: No discrete solid or cystic abnormality. US/US pelvic limited IMPRESSION: No gross right inguinal hernia. Electronically signed by: Valentin France MD 09/26/2025 01:40 PM EST
--- OUTSIDE RECORDS SUMMARY | 2025-09-26 14:40 | XMS_ITS | Clinical Summary ---
Author Organization 175 [facility] Address [address] [place] [address] Phone Care Team Providers Care Film Technician Name Role Phone Francie Keith NP [...] (hypertension) 09/27/2024 Hyperlipidemia 09/27/2024 Traumatic brain injury ([facility] V24, [facility] V28 ) 09/27/2024 Alcoholic cirrhosis ([facility] V24, [facility] V28) 1 11/27/2023 Thoracic spine pain 09/27/2024 Secondary parkinsonism ([facility] V24, [facility] V28 ) 09/27/2024 Encounters Date Type Department Care Team Description 07/04/2025 10:00 AM EDT Office Visit Orthopedic Surgery - [address] [place] [phone] Jack Cuevas, DPM Acquired hammer toe of right foot (Primary Dx); Paralyzed hemidiaphragm; Alcoholic peripheral neuropathy ([facility] V24); Primary osteoarthritis of both feet; Pain in toe of left foot; Dermatophytosis of nail; Pain in toe of right foot; Bilateral femoral artery stenosis ([facility] V24) from Last 3 Months Social History [...] Care Team (Late st Contact Info) Description 09/27/2025 2:15 PM EST Office Visit Orthopedic Surgery - [place] [address] [phone] Jack Cuevas, DPM [address] [phone] Health Maintenance Due Date Last [...] Insurance MEDICARE [place]ICAID - [place] Care Teams Film Technician Relationship Specialty Start Date End Date Francie Keith, PLACEMENT INTERVIEWER [address] [place] [phone] PCP - General 05/27/23
--- OUTSIDE RECORDS SUMMARY | 2025-09-26 14:40 | XMS_ITS | Data Portability ---
Author Organization [place] [facility] Address [address] [place] [phone] Care Team Providers Care Career Development Engineer Name Role Phone WILLIAM FRANCOIS Primary Care Provider Assessment Encounter Date Assessment Date Assessment LastModified by Organization Details LastModified Time 08/07/2023 08/07/2023 Time On Scene with Patient: 00:45:06 [email or web address] Not available 08/07/2023 09:43:06 08/07/2023 08/07/2023 Brief Overview: 67 y/o male c/o cough now x 1 month since he release from [facility] on 07/07. he was admitted for aspiration [...] according to [facility]'s infection prevention protocols. Not available 08/07/2023 09:53:47 Plan of Treatment Reminders Order Date Submit Date Provider Last Modified By Organization Details Last Modified Time Details Appointments None recorded. Lab None recorded. Referral None recorded. Procedures None recorded. Surgeries None recorded. Imaging XR, chest, 2 view - hx aspiration pneumonia in June 242022 023 [facility] ([facility] [address], [place], [address], 14:04:05 Medication Orders None recorded. Patient TargetsNo targets recorded. Patient Instructions Encounter Date Encounter Id Patient Instructions Last Modified By Organization Details Last Modified Time 08/07/2023 [id number] Inhaler Instructions Before use, you need to [...] is a steroid medicine (also called a g lucocorticoid or c orticosteroid ), rinse out your mouth, gargle, and [...] after cleaning actually helps it work better. [email or web address] Not available 08/07/2023 09:29:49 Reason for Referral [...] ONICAL LY SIGNED BY ENRICO GAMBLE M.D. 3:35:2 0 PM EDT. XRAY CHEST 1 [...] GAMBLE M.D. 023 3:35:2 0 PM EDT. [email or web address] [employer] [employer], [address], 08/08/2023 12:17:49 Result Notes Documentation Provider Name [...] 3:35:20 PM EDT. Cora Waite NP [address], [place], [address], [place] [facility] 08/08/2023 12:17:49 Procedures Surgical History Date Name Laterality Status Provider Name and Address Organization Details Recorded Time Cholecystectomy completed MICHELE Peterson [address], [place], [address], [place] [facility] 08/07/2023 09:11:13 Hernia Repair completed MICHELE Peterson [address], [place], [address], [place] [facility] 08/07/2023 09:11:21 operative procedure on knee completed MICHELE Peterson [address], [place], [address], [place] [facility] 08/07/2023 09:11:29 total replacement of hip completed MICHELE Peterson [address], [place], [address], [place] [facility] 08/07/2023 09:11:40 Imaging Results None recorded. Procedure Notes None recorded. Medical Equipment None Reported. Allergies Allergen ID Allergen Name Allergen Category Reaction Reaction Severity Criticality Documentation Date Start Date Code Code System Note Provider Name and Address Organization Details Recorded Time 864249 fentanyl medicatio n Not available Not available Not available 08/07/2023 4337 RxNorm MICHELE Peterson [address], [place], [address], [place] [facility] 09:01:10 Medications Name Sig Start Date [...] Smoking Status Never Smoker MICHELE Peterson [address] [facility], [place], [address], [place] [facility] 08/07/2023 09:10:04 Fall Risk: Do You Feel Unsteady When Standing Or Walking? Yes [email or web address] Information not available 08/07/2023 Excessive Alcohol Or Drug Use No [email or web address] Information not available 08/07/2023 Does This Patient Have A PCP? Yes [email or web address] Information not available 08/07/2023 Has The Patient Seen Their PCP In The Past 6 Months? Yes [email or web address] Information not available 08/07/2023 ADL: Do You Need Help With Daily Activities Such As Bathing, Preparing Meals, Dressing, Or Cleaning? Yes (Z74.1) [email or web address] Information not available 08/07/2023 What Is Your Housing Situation Today? I Have Housing [email or web address] Information not available 08/07/2023 Sex: Unknown Functional Status Question Answer Note LastModified by Organizat ion Details LastModified Time Do you use any illicit or recreational drugs? No [email or web address] Information not available 08/07/2023 What is your level of alcohol consumption? None [email or web address] Information not available 08/07/2023 Mental Status None recorded. Family History Nothing Reported. Medical History Condition Response Diabetes N Coronary Artery Disease N CHF N Parkinson's Disease N Cancer N Dementia N Stroke N Depression Y Asthma N COPD N Hypothyroidism N High Cholesterol Y Rheumatoid Arthritis Y Pulmonary Embolism N Hypertension Y A-fib N Osteoporosis N Kidney Disease N Past Encounters Encounter ID Performer Location Encounter Start Date Encounter Closed Date Diagnosis/Indication Diagnosis SNOMED-CT Code Diagnosis ICD10 Code Diagnosis IMO Codes Diagnosis Note [id number] MICHELE Peterson [facility] [address] [place] [address] 08/07/2023 08:58:44 08/19/2023 22:31:59 Pneumonia 407333960 J18.9 Status of condition: Acute. Testing/Re sults: [...] edema, lethargy, weakness, dizziness, vomiting. Essential hypertension 48551626 I10 Status of condition: Chronic. Testing/Re sults: BP 128/74 on scene. Discussion : BP controlled on current regimen. he is asymptomat ic. Plan, Medication Management & Follow-up recommenda tions:foll ow up with pcp next week as scheduled. go to the ER with worsening symptoms cp, sob, weakness, dizziness, HAs, edema, vision changes. [id number] MICHELE Peterson [facility] [address] [facility] [address] 08/07/2023 09:00:31 08/10/2023 12:56:52 Health Concerns Section Related Observation LastModified by Organization Detai ls LastModified Time None Recorded Concern Status LastModified by Organization Details LastModified Time None Recorded Advance Directives Directive None Recorded Payers Insurance Date Sequence Insurance Name Policy Number Policy Hernandez Covered Member ID Hernandez Member ID Guarantor Name 08/20/2023 2 [place]: [facility] Samanta Barros [id number] Samanta Barros 08/20/2023 1 MEDIC[place]: [employer] Samanta Barros [id number] Samanta Barros 08/06/2023 1 MEDICARE B-[place]: [facility] Samanta Barros [id number] Samanta Barros 08/06/2023 1 *SELF PAY* Samanta Barros [id number] Samanta Barros Notes Date Note Type Note [...] admitted to [facility] on 06/30-07/07 with dx of aspiration, pneumonia, [...] has not felt he needed it. MICHELE Peterosn [address], [place], [address], [place] [facility] 08/07/2023 09:59:26 08/07/2023 text/html duplicate chart, see other note from 08/07/23. MICHELE Peterson [address], [place], [address], [place] [facility] 08/07/2023 10:01:52
--- OUTSIDE RECORDS SUMMARY | 2025-09-26 14:40 | XMS_ITS | Patient Health Record ---
Author Organization [facility] Address [address] [place] [phone] Care Team Providers Care Pullman Car Clerk Name Role Phone Wilmer Enciso MD Primary Care Provider Unavail able Corbin Swanson Unavailable [phone] Allergies Allergen (clinical drug ingredient) Drug/Non Drug [...] day as needed for anal or rectal pain; Duration: 30 days 09/23/2023 Active Sinemet 25-100 MG 1 tablet Orally Thre e times a day Active Metamucil 48.57 % 1 Tablespoon in at l east 8 ounces of fluids Orally Once or Twice a day for constipation; Duration: 30 days 09/01/2022 Active Ativan 0.5 MG 1 tablet as needed O rally twice a day Active QUEtiapine Fumarate 75 mg 1 tablet Orall y twice a day Active Nystatin 868864 UNIT/ML 4 mL Mouth/Throa t Four times a day; Duration: 14 day(s) Active MiraLax 17 GM/SCOOP 1 scoop with 17 GM O rally daily at 4PM on a daily and regular basis, and then also QAM as needed for constipation in addition to the 4PM dose if needed; Duration: 30 days 04/01/2022 Active Linzess 145 MCG 1 capsule at least 3 0 minutes before the first meal of the day on an empty stomach Orally Once a day; Duration: 30 day(s) Active Trintellix 20 MG 1 tablet Orally Once a day Active Xalatan 0.005 % 1 drop into affected eye in the evening Ophthalmic Once a day Active Colace 100 MG 1 Orally Every eveni ng at bedtime; Duration: 30 day(s) 07/23/2022 Active Propranolol HCl 20 MG/5ML 5 mL Orally On ce a day; Duration: 30 day(s) Active Proscar 5 MG 1 tablet Orally Once a day Active Metamucil 48.57 % 1 Tablespoon Orally once or twice a day mixed in 8 ounces of water or OJ for constipation; Duration: 30 days 06/05/2022 Active OLANZapine 2.5 MG 1 tablet Orally Once a day; Duration: 30 day(s) Active Zolpidem Tartrate 5 MG 1 tablet under th e tongue and allow to dissolve at bedtime as needed Sublingual Once a day Active Naltrexone HCl 50 MG 1 tablet Orally Onc e a day; Duration: 30 day(s) Active ALPRAZolam 0.5 MG 1 tablet Orally Twic e a day Active hydrOXYzine HCl 25 MG 1 tablet as needed Orally Once a day; Duration: 30 day(s) Active Ondansetron 4 MG 1 tablet on the tong ue and allow to dissolve Orally Every 4 to 6 hours if needed for nausea; Duration: 30 days Active Senna 8.6 MG TAKE 1 TABLET BY ASHLEY TH DAILY AT BEDTIME Active Polyethylene Glycol 3350 17 GM 1 packet mixed with 8 ounces of fluid Orally Twice a day; Duration: 30 days Active Nortriptyline HCl 75 MG as directed Orally Active Melatonin 5 MG Oral; Duration: 30 Active GNP Natural Fiber 0.52 GM Oral; Duration: 28 Active MiraLax - 17 Grams Orally QAM; Duration: 30 days 01/08/2020 Active Lisinopril Active Finasteride 5 MG Oral; Duration: 30 Active MiraLax - 17 Grams Orally Q PM PRN constipation; Duration: 30 days 01/08/2020 Active Centrum Silver - [...] MG 1 tablet Orally Onc e a day; Duration: 30 day(s) Active Hydrocortisone 1 % 1 application Billboard Poster ally Once a day Active Ibuprofen 800 MG 1 tablet with food o r milk as needed Orally every 8 hrs Active Guaifenesin DM Cough & Chest Active Bisacodyl Laxative 10 MG 1 suppository a s needed Rectal Once a day; Duration: 30 day(s) Active Anusol-HC 2.5 % 1 application Billboard Poster ally Twice a day Active Artificial Tear Solution - as directed Ophthalmic Active Magnesium Hydroxide 2400 MG/10ML 5 mL Orally Twice a day; Duration: 30 day(s) Active Tylenol 8 Hour 650 [...] Problem Status W/U Status Risk Notes Problem Screening for malignant neoplasm of colon (689328494) Encounter for screening for malignant neoplasm of colon (Z12.11) Active confirmed Problem History of adenomatous polyp of colon (702757930) History of adenomatous polyp of colon (Z86.010) Active confirmed Problem Alcoholic cirrhosis (431887073) Alcoholic cirrhosis of liver without ascites (K70.30) Active confirmed Problem Gastroesophageal reflux disease without esophagitis (363458565) Gastroesophageal reflux disease without esophagitis (K21.9) Active confirmed Problem Alcoholic liver disease (39969133) Alcoholic liver disease (K70.9) Active confirmed Problem Constipation (85519034) Constipation, unspecified constipation type (K59.00) Active confirmed Problem Acute gastroenteritis (39547715) Acute gastroenteritis (K52.9) Active confirmed Encounters Encounter Location Date Provider Diagnosis [facility] [address] [place] [address] 10/18/2024 Corbin Swanson [facility] [address] [place] [phone] 05/16/2025 Corbin Swanson Plan Of Treatment Pending Test Test Name [...] Date MEDICARE OF [place] [address] [place] [address] [phone] [id number] BEVERLY CABRERA Self - patient is the insured MEDICAID OF [facility] [address] [place] [address] [id number] BEVERLY CABRERA Self - patient is the insured Medical (General) History Medical History History ICD Code Urinary incontinence Hypertension Denies [place],DM,CVA,Lung disease,renal dise ase Alcohol-induced cirrhosis--n eg. CT of liver in 09/2019 at [facility]--no ascites, no masses---mild splenomgealy, positive varices Trouble walking due to trent ce issues in relation to his subdural hematomas and craniotomies Depression--at [facility] for 2 months 11/2021 to 01/2022; then to rehab until early February GERD/esophagitis--GI bleedin g admission at [facility]---upper endoscopy in 2006 revealed erosive esophagitis and esophageal ulcers while he was actively drinking; a followup endoscopy in 2008 revealed complete healing and no sign of Ac's esophagus Colonoscopies--2014 and 2016 at the [facility]--the 2014 exam was suboptimal due to poor bowel prep; the 2016 exam revealed a small tubular adenoma and small serrated adenoma EGD in 2016 at the [facility] was negative for varices nor significant esophagitis--gastric biopsies were negative for H. pylori Chronic constipation Ischemic colitis in 2021. He had a Flex sig with Dr. Steiner Surgical History Surgery Date(Month/Year) Craniotomy x2 for subdurals 2006 Cholecystectomy 2011 Hernia repair age 4 Umbilical hernia repair 01/12/2020
== END 2025-09-26 12:55 | disposition home or self-care (01) ==
LOC: HO.US 12:54
PROVIDERS: PCP Internal Medicine; Visit Provider Internal Medicine
DX: K40.90 Unilateral inguinal hernia, without obstruction or gangrene, not specified as recurrent (principal)
CPT/HCPCS: 76857

== ENCOUNTER → 2025-09-26 13:02 | Outpatient (BNV) | payer MEDICARE, MEDICAID, SELFPAY | PROVIDERS: PCP Internal Medicine; Visit Provider Radiology Diagnostic Radiology | DX: K40.90 Unilateral inguinal hernia, without obstruction or gangrene, not specified as recurrent (principal) | CPT/HCPCS: 76857 ==

== ENCOUNTER 2025-09-27 10:41 | Outpatient (AMB) | payer MEDICARE, MEDICAID, SELFPAY ==
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
--- OUTSIDE RECORDS SUMMARY | 2025-09-27 12:51 | XMS_ITS | Patient Health Record ---
Author Organization [facility] Address [address] [place] [phone] Care Team Providers Care Tv Technician Name Role Phone Wilmer Enciso MD Primary Care Provider Unavail able Corbin Swanson Unavailable [phone] Allergies Allergen (clinical drug ingredient) Drug/Non Drug [...] Orall y twice a day Active Nystatin 076714 UNIT/ML 4 mL Mouth/Throa t Four times [...] day(s) Active Hydrocortisone 1 % 1 application Imaging Center Manager ally Once a day Active Ibuprofen 800 MG 1 tablet with food o r milk as needed Orally every 8 hrs Active Guaifenesin DM Cough & Chest Active Bisacodyl Laxative 10 MG 1 suppository a s needed Rectal Once a day; Duration: 30 day(s) Active Anusol-HC 2.5 % 1 application Imaging Center Manager ally Twice a day Active Artificial Tear [...] Problem Screening for malignant neoplasm of colon (185368982) Encounter for screening for malignant neoplasm of colon (Z12.11) Active confirmed Problem History of adenomatous polyp of colon (837391981) History of adenomatous polyp of colon (Z86.010) Active confirmed Problem Alcoholic cirrhosis (876362469) Alcoholic cirrhosis of liver without ascites (K70.30) Active confirmed Problem Gastroesophageal reflux disease without esophagitis (915467309) Gastroesophageal reflux disease without esophagitis (K21.9) Active confirmed Problem Alcoholic liver disease (62462327) Alcoholic liver disease (K70.9) Active confirmed Problem Constipation (77341139) Constipation, unspecified constipation type (K59.00) Active confirmed Problem Acute gastroenteritis (57142996) Acute gastroenteritis (K52.9) Active confirmed Encounters Encounter Location Date Provider Diagnosis [facility] [address] [place] [address] 10/18/2024 Corbin Swanson [facility] [address] [place] [phone] 05/16/2025 Corbin Swanson Plan Of Treatment Pending [...] MEDICARE OF [place] [address] [place] [address] [id number] BEVERLY CABRERA Self - patient is the insured MEDICAID OF [facility] [address] [place] [phone] [id number] BEVERLY CABRERA Self - patient is the insured Medical (General) History Medical History History ICD Code Urinary incontinence Hypertension Denies [place],DM,CVA,Lung disease,renal dise ase Alcohol-induced cirrhosis--n eg. CT of liver in 09/2019 at [facility]--no ascites, no masses---mild splenomgealy, positive varices Trouble walking due to trent ce issues in relation to his subdural hematomas and craniotomies Depression--at [facility] for 2 months 11/2021 to 01/2022; then to rehab until early February GERD/esophagitis--GI bleedin g admission at [facility]---upper endoscopy in 2006 revealed erosive esophagitis and esophageal ulcers while he was actively drinking; a followup endoscopy in 2008 revealed complete healing and no sign of Ac's esophagus Colonoscopies--2014 and 2016 at the [facility]--the 2014 exam was suboptimal due to poor bowel prep; the 2016 exam revealed a small tubular adenoma and small serrated adenoma EGD in 2016 at the [facility] was negative for varices nor significant esophagitis--gastric biopsies were negative for H. pylori Chronic constipation Ischemic colitis in 2021. He had a Flex sig with Dr. Steiner Surgical History Surgery Date(Month/Year) Craniotomy x2 for subdurals 2006 Cholecystectomy 2011 Hernia repair age 4 Umbilical hernia repair 01/12/2020
--- OUTSIDE RECORDS SUMMARY | 2025-09-27 12:51 | XMS_ITS | Clinical Summary ---
Author Organization [facility] Address [address] [place] [address] Phone Care Team Providers Care Cattle Killer Name Role Phone Francie Keith NP Primary [...] (hypertension) 09/27/2024 Hyperlipidemia 09/27/2024 Traumatic brain injury ([facility] V24, [facility] V28 ) 09/27/2024 Alcoholic cirrhosis ([facility] V24, [facility] V28) 1 11/27/2023 Thoracic spine pain 09/27/2024 Secondary parkinsonism ([facility] V24, [facility] V28 ) 09/27/2024 Encounters Date Type Department Care Team Description 07/04/2025 10:00 AM EDT Office Visit Orthopedic Surgery - [address] [place] [phone] Jack Cuevas, DPM Acquired hammer toe of right foot (Primary Dx); Paralyzed hemidiaphragm; Alcoholic peripheral neuropathy ([facility]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); Primary osteoarthritis of both feet; Pain in toe of left foot; Dermatophytosis of nail; Pain in toe of right foot; Bilateral femoral artery stenosis ([facility] V24) from Last 3 Months Social [...] PM EST Office Visit Orthopedic Surgery - [place] [address] [address] Jack Cuevas, DPM [address] [phone] Health Maintenance Due Date Last [...] Insurance MEDICARE [place]ICAID - [place] Care Teams Cattle Killer Relationship Specialty Start Date End Date Francie Keith, METALSMITH HELPER [address] [place] [phone] PCP - General 05/27/23
== END 2025-09-27 11:35 | disposition home or self-care (01) ==
LOC: HO.HOP 10:41
PROVIDERS: PCP Physician Assistant Medical; Visit Provider Psychiatry & Neurology Psychiatry
DX: F33.9 Major depressive disorder, recurrent, unspecified (principal); G31.89 Other specified degenerative diseases of nervous system; F09 Unspecified mental disorder due to known physiological condition; S06.9X9S Unspecified intracranial injury with loss of consciousness of unspecified duration, sequela
CPT/HCPCS: 99214

== ENCOUNTER 2025-09-27 10:41 | Outpatient (REF) | payer MEDICARE, MEDICAID, SELFPAY ==
[2025-09-27 11:55] LABS: MANUAL DIFF FLAG NO
[2025-09-27 11:57] LABS: Hematocrit 46.6 % (42.0-52.0); Hemoglobin 15.5 g/dl (14.0-18.0); Imm Gran Abs Auto 0.16 X10*3/uL (0.00-0.03); Imm Gran Pct Auto 2.2 % (0.0-0.4); Lymphocytes Absolute Auto 1.8 X10*3/uL (1.2-4.9); Mean Corpuscular HGB Conc 33.3 g/dl (31.0-36.0); Mean Corpuscular Hemoglobin 32.2 pg (27.0-33.0); Mean Corpuscular Volume 96.7 fL (80.0-98.0); NRBC Abs Auto 0.000 X10*3/uL (0.0-0.012); NRBC Pct Auto 0.0 /100WBC (0.0-0.2); Platelet Count 173 X10*3/uL (160-400); Red Blood Count 4.82 X10*6/uL (4.60-5.80); White Blood Count 7.4 X10*3/uL (4.8-10.8)
[2025-09-27 12:04] LABS: Ammonia 48 umol/L (13-55)
[2025-09-27 12:11] LABS: Alanine Aminotransferase 86 U/L (0-40); Albumin Level 4.5 g/dL (3.5-5.0); Alkaline Phosphatase 71 U/L (39-117); Anion Gap 11 (12-20); Aspartate Amino Transferase 41 U/L (5-37); Blood Urea Nitrogen 17 mg/dL (9-16); Calcium 9.8 mg/dL (8.4-10.2); Carbon Dioxide 30 mmol/L (22-29); Chloride 103 mmol/L (96-108); Estimated Glomerular Filt Rate > 60; Potassium 4.1 mmol/L (3.3-5.1); Sodium 140 mmol/L (135-145); Total Protein 7.1 g/dL (6.5-8.0)
== END 2025-09-27 10:42 | disposition home or self-care (01) ==
LOC: HO.LAB 10:41
PROVIDERS: PCP Physician Assistant Medical; Visit Provider Psychiatry & Neurology Psychiatry
DX: F33.9 Major depressive disorder, recurrent, unspecified (principal); R74.01 Elevation of levels of liver transaminase levels; G31.89 Other specified degenerative diseases of nervous system; F09 Unspecified mental disorder due to known physiological condition; S06.9X9S Unspecified intracranial injury with loss of consciousness of unspecified duration, sequela; Z87.820 Personal history of traumatic brain injury; Z79.899 Other long term (current) drug therapy
CPT/HCPCS: 36415; 80053; 80164; 82140; 85025; 99212